=== PATIENT | female | born 1975 | race Caucasian/White ===

== ENCOUNTER 2016-07-07 20:03 | Emergency (ER) | payer BC ==
[~2016-07-07] VITALS: Ht 160 cm; Wt 77.1 kg
[~2016-07-07 20:03] MED LIST: ACET125T2 PO; ACET250T3 PO; ACHYD1T GT; ALPR0.5T PO; ANTI14DR4 OT; BSP10T PO; BUPR150T9 PO; BUTA-234 PO; CHOL4PAC17 PO; CYCL10TA9 PO; CYCL5TAB11 PO; DCS100C PO; ENXP100I SC; FLUR100T PO; FURO20TA PO; HYDR-2890 PO; HYDR-34; HYDR-3583 PO; HYDR1CAP2 PO; HYDR1TAB8 OP; HYDR25CA3 PO; HYDR25CA92 PO; IBP800T PO; LANS15CA PO; LNS30CCR PO; MECL-106 PO; METH500T35; METH500T35 PO; METO25TA PO; NEOM10DR6 LEFT EAR; NFNEB10T PO; NITR100C3 PO; ONDAN4ODT PO; POTA10TA36 PO; PRM25T PO; TRAM50TA2; TRAM50TA2 PO; WARF5TAB PO; WARF7.5T PO; WRF5T PO
[2016-07-07] MEDS ORDERED: RT-ALBUTEROL/IPRATROPIUM 3 ML (DUONEB) VIAL ONE (20:11)
[2016-07-07] MEDS ORDERED: RT-ALBUTEROL/IPRATROPIUM 3 ML (DUONEB) VIAL INH ONE (20:30)
[2016-07-07 20:33] LABS: BASOPHILS % (AUTO) 0 % (0-10); EOSINOPHILS # (AUTO) 0.2 10^3/uL (0.0-0.3); EOSINOPHILS % (AUTO) 2 % (0-10); LYMPHOCYTES # (AUTO) 4.2 X 10^3 (1.0-4.0); LYMPHOCYTES % (AUTO) 50 % (12-44); MEAN CORPUSCULAR HEMOGLOBIN 33 PG (25-34); MEAN CORPUSCULAR HGB CONC 35 G/DL (32-36); MEAN CORPUSCULAR VOLUME 93 FL (80-99); MONOCYTES # (AUTO) 0.5 X 10^3 (0.0-1.0); MONOCYTES % (AUTO) 6 % (0-12); NEUTROPHILS # (AUTO) 3.5 X 10^3 (1.8-7.8); NEUTROPHILS % (AUTO) 41 % (42-75); PLATELET COUNT 292 10^3/uL (130-400); RED BLOOD COUNT 4.56 10^6/uL (4.35-5.85); RED CELL DISTRIBUTION WIDTH 12.4 % (10.0-14.5); WHITE BLOOD COUNT 8.4 10^3/uL (4.3-11.0)
[2016-07-07 20:40] LABS: INR 1.6 (0.8-1.4); PROTHROMBIN TIME PATIENT 18.3 SEC (12.2-14.7)
--- NOTE | 2016-07-07 20:40 | ED Cough/URI ---
General Chief Complaint: Respiratory Problems Stated Complaint: SOA Nursing Triage Note: PT TO ED 8 W/ C/O SOA ONSET X7 DAYS, WORSE TODAY. INSPIRATORY ET EXPIRATORY WHEEZES AUSCULTATED. NO OTHER C/O VOICED Source: patient Exam Limitations: no limitations History of Present Illness Time seen by provider: 20:10 Initial Comments Here with complaint of shortness of air and cough that has been going on for 7 days. Worse today. States that she felt like she could not get a deep breath. Does have history of pulmonary embolism and was concerned about that. She is currently on Coumadin but she does not know her current INR level. Denies a fever but does have some chills. Does have a mildly productive cough. Does report runny nose and nasal congestion. Timing/Duration: week, getting worse Severity/Quality: mild, productive cough, sputum Prior Episodes/Possible Cause: occasional episodes Modifying Factors: Worse With Activity, Improves With Albuterol Inhaler, Improves With Rest Associated Symptoms: cough, fever/chills, nasal congestion, shortness of breath , wheezing Allergies and Home Medications Allergies Coded Allergies: Sulfa (Sulfonamide Antibiotics) (Unverified Allergy, Severe, PER PT "THROAT SWELLS", 09/11/11) bupropion (Unverified Allergy, Severe, IRREG HEART RATE, 10/21/14) amoxicillin (Unverified Allergy, Mild, RASH AND VISUAL DISTURBANCES/ VISUAL LOSS, 03/21/15) PER PT REPORT clavulanic acid (Unverified Allergy, Mild, RASH AND VISUAL DISTURBANCES/ VISUAL LOSS, 03/21/15) PER PT REPORT cefuroxime axetil (Unverified Allergy, Unknown, PER PATIENT CAN TAKE ROCEPHIN, 03/21/15) PER [facility] PATIENT RECEIVED ROCEPHIN ON 02/23 WITHOUT ISSUE tramadol (Unverified Adverse Reaction, Unknown, HEADACHE, 01/05/15) Uncoded Allergies: PENICILLIN (Allergy, Mild, RASH, 03/21/15) PER PT REPORT Home Medications Acetazolamide 125 Mg Tablet 62.5 MG PO DAILY (Reported) Cholestyramine/Aspartame 4 G/Pkt Packet 2 G PO HS (Reported) PT STATES ONLY TAKES HALF DOSE NOW (2G) AND MIXES IT WITH WATER Cyclobenzaprine Hcl 10 Mg Tablet 0.5 TAB PO HS (Reported) Hydrocodone Bit/Acetaminophen 1 Each Tablet 0.5 EACH PO Q4H PRN PRN (Reported) PT STATES TAKES 1/2 TAB Q4-6H PRN PAIN D/T INCREASED DOSE CAUSES DROWSINESS Hydroxyzine Pamoate 25 Mg Cap #20 25 MG PO PRN (Reported) Nebivolol HCl 10 Mg Tab 15 MG PO DAILY (Reported) Warfarin Sodium 5 Mg Tablet 5 MG PO DAILY (Reported) Warfarin Sodium 7.5 Mg Tablet 7.5 MG PO DAILY (Reported) 7.5 MG TWO DAYS A WEEK Constitutional: see HPI chillsNo fever EENTM: see HPINo hoarseness, No throat pain Respiratory: see HPINo hemoptysis, No stridor Cardiovascular: no symptoms reportedNo chest pain, No edema Gastrointestinal: no symptoms reportedNo nausea, No vomiting Genitourinary: no symptoms reported Musculoskeletal: no symptoms reported Skin: no symptoms reported All Other Systems Reviewed Negative Unless Noted: Yes Past Aoezrqz-Ydthap-Cnyapm Hx Patient Social History Alcohol Use: Denies Use Recreational Drug Use: No Smoking Status: Current Everyday Smoker Type Used: Cigarettes Former Smoker/When Quit: Jul 20, 2012 Recent Foreign Travel: No Contact w/Someone Who Travel: No Recent Infectious Disease Expo: No Recent Hopitalizations: No Physical Abuse Screen: No Sexual Abuse: No Immunizations Up To Date Tetanus Booster (TDap): Unknown PED Vaccines UTD: No Date of Influenza Vaccine: Jul 21, 2012 Seasonal Allergies Seasonal Allergies: No Surgeries HX Surgeries: Yes (L SHOULDERX2, DNC) Surgeries: Section, Gallbladder, Hysterectomy, Orthopedic Respiratory Hx Respiratory Disorders: Yes Respiratory Disorders: Pulmonary Embolism Cardiovascular Hx Cardiac Disorders: Yes (TACHYCARDIA, POTS SYNDROME, NORMAL STRESS TEST 2014) Cardiac Disorders: Chronic Edema/Swelling, Hypertension Neurological Hx Neurological Disorders: Yes (PSEUDOTUMOR CEREBRI DX 12/2009) Neurological Disorders: Headaches /Migraines Reproductive System Hx Reproductive Disorders: Yes (CHORIOCARCINOMA, MULTIPLE MISCARRIAGES) Sexually Transmitted Disease: No HIV/AIDS: No Female Reproductive Disorders: Endometriosis 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 07/2009) Cancer: Uterine Psychosocial Hx Psychiatric Problems: Yes Behavioral Health Disorders: Anxiety Integumentary HX Skin/Integumentary Disorder: No Blood Transfusions Hx Blood Disorders: No Reviewed Nursing Assessment Reviewed/Agree w Nursing PMH: Yes Family Medical History Significant Family History: No Pertinent Family Hx Physical Exam Vital Signs Vital Sign - Last 12Hours 07/07/16 20:03 Temp 95.8 Pulse 85 Resp 20 B/P 128/82 Pulse Ox 99 O2 Delivery Room Air Capillary Refill : Less Than 3 Seconds General Appearance: WD/WN no apparent distress HEENT: PERRL/EOMI pharyngeal erythema (mild) other (moderate bilateral nasal congestion with erythema and clear rhinorrhea.) Neck: full range of motion suppleNo lymphadenopathy (R), No lymphadenopathy (L ) Respiratory: no respiratory distress no accessory muscle use wheezing (few) Cardiovascular: regular rate, rhythm no murmur Gastrointestinal: non tender soft Extremities: non-tender normal inspection Neurologic/Psychiatric: alert oriented x 3 Skin: normal color warm/dry Progress/Results/Core Measures Results/Orders Lab Results Laboratory Tests Test 07/07/16 20:22 Range/Units Activated Partial Thromboplast Time 32 24-35 SEC Basophils # (Auto) 0.0 0.0-0.1 10^3/uL Basophils (%) (Auto) 0 0-10 % D-Dimer < 0.27 0.00-0.49 UG/ML Eosinophils # (Auto) 0.2 0.0-0.3 10^3/uL Eosinophils (%) (Auto) 2 0-10 % Hematocrit 43 35-52 % Hemoglobin 14.9 11.5-16.0 G/DL INR Comment 1.6 H 0.8-1.4 Lymphocytes # (Auto) 4.2 H 1.0-4.0 X 10^3 Lymphocytes (%) (Auto) 50 H 12-44 % Mean Corpuscular Hemoglobin 33 25-34 PG Mean Corpuscular Hemoglobin Concent 35 32-36 G/DL Mean Corpuscular Volume 93 80-99 FL Mean Platelet Volume 9.0 7.4-10.4 FL Monocytes # (Auto) 0.5 0.0-1.0 X 10^3 Monocytes (%) (Auto) 6 0-12 % Neutrophils # (Auto) 3.5 1.8-7.8 X 10^3 Neutrophils (%) (Auto) 41 L 42-75 % Platelet Count 292 130-400 10^3/uL Prothrombin Time 18.3 H 12.2-14.7 SEC Red Blood Count 4.56 4.35-5.85 10^6/uL Red Cell Distribution Width 12.4 10.0-14.5 % White Blood Count 8.4 4.3-11.0 10^3/uL My Orders Orders-RICK PEREA MD Cbc With Automated Diff (07/07/16 20:16) Fibrin Degradation Products (07/07/16 20:16) Protime With Inr (07/07/16 20:16) Partial Thromboplastin Time (07/07/16 20:16) Saline Lock/Iv-Start (07/07/16 20:16) Chest Pa/Lat (2 View) (07/07/16 20:16) Albuterol/Ipra Inhalation Soln (Duoneb I (07/07/16 20:30) Svn Sm Volume Nebulizer Rt-Rfs (07/07/16 20:16) Albuterol/Ipra Inhalation Soln (Duoneb I (07/07/16 20:11) Decadron 10 Mg Iv (07/07/16 21:50) Medications Given in ED Current Medications Medications Dose Ordered Sig/Levi Route Start Time Stop Time Status Last Admin Dose Admin Albuterol/ Ipratropium 3 ml STK-MED ONCE .ROUTE 07/07/16 20:11 07/07/16 20:19 DC 07/07/16 20:25 3 ML Vital Signs/I&O Vital Sign - Last 12Hours 07/07/16 07/07/16 20:03 20:26 Temp 95.8 Pulse 85 Resp 20 B/P 128/82 Pulse Ox 99 O2 Delivery Room Air Room Air Blood Pressure Mean: 97 Progress Note : Progress Note Seen and evaluated. IV, labs, chest x-ray and DuoNeb ordered. Monitor patient. 2144: No significant abnormal findings. INR 1.6. Improved after DuoNeb. Decadron 10 mg IV for pharyngitis. Discharged home with return precautions. Patient verbalize understanding instructions and agreement with plan. Departure Impression Impression: Primary Impression: Upper respiratory infection Qualified Code: J06.9 - Acute upper respiratory infection, unspecified Disposition: 01 HOME, SELF-CARE Condition: Improved Departure-Patient Inst. Decision time for Depature: 21:53 Referrals: KRISTOFER AMIN DO (PCP/Family) Primary Care Physician Patient Instructions: Viral Upper Respiratory Infection, Adult (DC) Add. Discharge Instructions: All discharge instructions reviewed with patient and/or family. Voiced understanding. Your INR was 1.6. Follow-up with your Dr. in one to 2 days for recheck. You may use Afrin nasal spray or the generic, 12 hour relief, 2 sprays to each nostril twice daily for 3 days only and then stop. Drink plenty of fluids. Return for worse pain, fever, vomiting, weakness, breathing problems or other concerns as needed. RICK PEREA MD Jul 07, 2016 20:40
[2016-07-07 20:41] LABS: PARTIAL THROMBOPLASTIN TIME 32 SEC (24-35)
--- NOTE | 2016-07-07 20:51 | Diagnostic Imaging Report ---
INDICATION: Difficulty breathing. EXAMINATION: Two views of the chest were obtained. COMPARISON: 03/07/2015. FINDINGS: The lungs are well aerated. No infiltrates are present. The heart is not enlarged. No evidence of pulmonary edema. No pneumothorax or pleural effusion. No hilar adenopathy. IMPRESSION: Normal PA and lateral chest with no appreciable change since previous exam. Dictated by: Dictated on workstation # [id number]
[2016-07-07] MEDS ORDERED: DEXAMETHASONE PF 10 MG/ML (DECADRON) VIAL IV STA (21:50)
[2016-07-07 22:04] VITALS: BP 122/86
== END 2016-07-07 22:04 | disposition home or self-care (01) ==
LOC: EDUNIT# 20:04 → ER 20:07
DX: J40 Bronchitis, not specified as acute or chronic (principal); I10 Essential (primary) hypertension; F17.210 Nicotine dependence, cigarettes, uncomplicated; Z79.899 Other long term (current) drug therapy; Z79.01 Long term (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; Z86.711 Personal history of pulmonary embolism
CPT/HCPCS: 36415; 71020; 85025; 85379; 85610; 85730; 94640

== ENCOUNTER 2017-02-10 13:55 | Emergency (ER) | payer BC ==
[~2017-02-10] VITALS: Ht 160 cm; Wt 77.1 kg
--- OUTSIDE RECORDS SUMMARY | 2017-02-10 14:01 | XMS REPORT ---
Author Author JIMI ROBB Organization [employer] Address Unknown Phone Unavailable Care Team Providers Care Bioinformatics Developer Name Role Phone JIMI ROBB CP Unavailable Allergies No Known Allergies Problems Problem Type Condition ICD-9 Code Onset Dates Condition Status Assessment Dysuria 788.1 Active Problem Choriocarcinoma 181 Active Problem Obesity, unspecified 278.00 Active Problem Irritable bowel syndrome 564.1 Active Problem GERD (gastroesophageal reflux disease) 530.81 Active Problem Pseudotumor cerebri 348.2 Active Problem Anxiety 300.00 Active Problem History of venous thromboembolism V12.51 Active Problem Arthropathy 716.90 Active Problem Tachycardia 785.0 Active Medications No Known Medications Results No Known Results Summary Purpose [employer] Submission
--- OUTSIDE RECORDS SUMMARY | 2017-02-10 14:01 | XMS REPORT | Clinical Summary ---
Author Author [facility] Organization [facility] Address Unknown Phone Unavailable Care Team Providers Care Manager Electrical Name Role Phone PCP Unavailable Source Comments Some departments are not documenting in the electronic medical record. If you do not see the information that you expected, contact Release of Information in the Health Information Management department at [phone] for further assistance in locating additional records.[facility] Allergies Active Allergy Reactions Severity Noted Date Comments Neomycin BLISTERS High 05/02/2015 same with colymycin Nitrofurantoin SHORTNESS OF BREATH, Medium 06/05/2015 hypertension Monohyd/M-Cryst PALPITATIONS, SEE COMMENTS Sulfa (Sulfonamide SEE COMMENTS Low 05/02/2015 throat swells hives Antibiotics) Rivaroxaban SEE COMMENTS Low 05/02/2015 swelling of the throat Current Medications Prescription Sig. Disp. Refills Start End Date Status Date cloNIDine HCl (CATAPRESS) Take 0.1 mg by mouth Active 0.1 mg tablet twice daily. nebivolol (BYSTOLIC) 10 Take 10 mg by mouth Active mg tablet daily. 5mg afternoon acetaZOLAMIDE (DIAMOX) Take 150 mg by mouth Active 250 mg tablet daily. warfarin (COUMADIN) 10 mg Take by mouth. 7.5 mg Active tablet five days, and 2 mg 2 days HYDROcodone-acetaminophen Take 1 Tab by mouth every Active (+) (LORTAB, NORCO) 6 hours as needed for 10-325 mg tablet Pain hydrOXYzine (VISTARIL) 25 Take 25 mg by mouth twice Active mg capsule daily. CYCLOBENZAPRINE HCL Take 5 mg by mouth daily. Active (FLEXERIL PO) cholestyramine/aspartame Take 1 Packet by mouth Active 4 gram packet twice daily. 1/2 Scoop x 1 daily enoxaparin (LOVENOX) 100 Inject 130 mg/kg into Active mg syrg area(s) as directed once. RINGERS SOLUTION,LACTATED Administer through vein. Active (LACTATED RINGERS IV) Rocephin 3x's weekly pregabalin (LYRICA) 75 mg Take 1 Cap by mouth twice 60 Cap 3 05/02/20 Active capsule daily. 15 CEFUROXIME AXETIL (CEFTIN Take by mouth twice Active PO) daily. Active Problems Problem Noted Date POTS (postural orthostatic tachycardia syndrome) 05/02/2015 Choriocarcinoma (HCC) 05/02/2015 DVT (deep venous thrombosis) (HCC) 05/02/2015 Pulmonary embolism (HCC) 05/02/2015 Overview: 06-05-15 First heme clinic visit. Hx as follows: 2012 had hysterectomy then developed small PE. Rxd with Lovenox and warfarin. F/U CTA showed resolution of prior PE with ? small PE in subsegmental posterior branch in the right lower lobe. Early 2014 warfarin DC'd and patient placed on Xarelto with bleeding complications. Developed POTS (postural orthostatic tachycardia syndrome) with completely negative cardiac evaluation in [place]. Developed Strep with PICC line placement, PICC subsequently removed. Pt resumed warfarin and is convinced her POTS symptoms resolved with resumption of warfarin. 10-21-14 CTA negative. Pt states she had hypercoagulable labs done in [place] after being off warfarin for 4 weeks but we have no results. This was earlier this year. I suggested review of those labs and decision about her need for anticoagulation at all. Discussed neuro review for her spells of swooning which again she believes are relieved by warfarin. Pseudotumor cerebri 05/02/2015 Interstitial cystitis 05/02/2015 Chronic fatigue 05/02/2015 Myalgia 05/02/2015 Family History Medical History Relation Name Comments Stroke Father Cancer-Breast Maternal Aunt Arthritis-rheumatoid Maternal Grandmother Cancer-Thyroid Maternal Grandmother Diabetes Maternal Grandmother High Cholesterol Maternal Grandmother Stroke Maternal Grandmother Cancer Mother Hypertension Mother Relation Name Status Comments Father Maternal Aunt Maternal Grandmother Mother Alive Social History Tobacco Use Types Packs/Day Years Used Date Current Every Day Smoker Smokeless Tobacco: Never Used Alcohol Use Drinks/Week oz/Week Comments No 0 Standard 0.0 drinks or equivalent Sex Assigned at Date Recorded Not on file Last Filed Vital Signs Vital Sign Reading Time Taken Blood Pressure 109/72 06/05/2015 9:32 AM [employer] [employer] Pulse 72 06/05/2015 9:32 AM [employer] [employer] Temperature 36.8 C (98.2 F) 06/05/2015 9:32 AM [employer] Respiratory Rate 22 06/05/2015 9:32 AM [employer] [employer] Oxygen Saturation 98% 06/05/2015 9:32 AM [employer] Inhaled Oxygen - - Concentration Weight 84.7 kg (186 lb 12.8 oz) 06/05/2015 9:32 AM [employer] [employer] Height 160 cm (5' 2.99") 06/05/2015 9:32 AM [employer] [employer] Body Mass Index 33.1 06/05/2015 9:32 AM [employer] [employer] Plan of Treatment Health Maintenance Due Date Last Done Comments PHYSICAL (COMPREHENSIVE) 1984 EXAM PERTUSSIS VACCINE 1988 TETANUS VACCINE 1994 CERVICAL CANCER SCREENING 2007 INFLUENZA VACCINE 02/21/2017 Results Not on filefrom Last 3 Months
--- OUTSIDE RECORDS SUMMARY | 2017-02-10 14:02 | XMS REPORT ---
Author Author JIMI ROBB [facility] [employer] Address Unknown Phone Unavailable Care Team Providers Care Woodworker Name Role Phone JIMI ROBB CP Unavailable Allergies, Adverse Reactions, Alerts Substance Reaction Event Type Xarelto bilat infiltrates from allergic rxn Drug Allergy Sulfamethoxazole Info Not Available Drug Allergy Neomycin Sulfate Info Not Available Drug Allergy Hydrochlorothiazide Info Not Available Drug Allergy Coly-Mycin M Info Not Available Drug Allergy Ceftin Info Not Available Drug Allergy Problems Problem Type Condition ICD-9 Code Onset Dates Condition Status Assessment Anxiety 300.00 Active Problem Choriocarcinoma 181 Active Problem Obesity, unspecified 278.00 Active Assessment Chronic pain 338.29 Active Problem Irritable bowel syndrome 564.1 Active Problem GERD (gastroesophageal reflux disease) 530.81 Active Problem Pseudotumor cerebri 348.2 Active Problem Anxiety 300.00 Active Problem History of venous thromboembolism V12.51 Active Problem Arthropathy 716.90 Active Problem Tachycardia 785.0 Active Medications Medication Code System Code Instructions Start Date End Date Status Dosage Clonidine HCl [facility] [address]-38 0.1 MG Orally Once a day 0.5 tablet Questran [facility] [address]-41 4 gram Mar 05, 2012 take 1 scoop dissolved in 2 to 6 ounces of water or noncarbonated beverage by Oral route 1 time per day Augmentin [facility] [address]-93 875-125 MG Orally every 12 hrs 1 tablet Vitamin D (Ergocalciferol) [facility] [address]-06 56439 UNIT Orally once a week 1 capsule Bystolic [facility] [address]-01 10 MG Orally Once a day 1 tablet Phenergan [facility] [address]-37 25 mg Mar 28, 2014 1 tablet by Oral route every 4 hours PRN nausea with headache Aspir-[address] [facility] [address]-86 81 MG Orally Once a day 1 tablet Cyanocobalamin [facility] [address]-73 1000 MCG/ML Injection 1 ml Flexeril NDC 0 10 mg 3 times a day take 0.5 tablet by Oral route 3 times per day PRN as needed for muscle spasm Metoprolol Tartrate [facility] [address]-54 25 MG Orally Twice a day 1 tablet Vistaril [facility] [address]-08 25 MG Orally twice a day prn 1 capsule as needed Arvada [facility] [address]-35 10-325 MG Orally 4 times a day prn Mar 14, 2015 1 tablet as needed Lovenox [facility] [address]-06 150 MG/ML Subcutaneous not defined Coumadin [facility] [address]-94 5 MG Orally On ,FRI,FRI,SAT, SUN--TAKE 7.5MG ON FRI AND FRIDAY 1 tablet Diamox Sequels [facility] [address]-42 125 mg Orally 4 times a day December 14, 2014 1 Tablet Procedures Procedure Coding System Code Date Office Visit, Est Pt., Level 4 CPT-4 62715 Mar 14, 2015 Vital Signs Date/Time: Mar 14, 2015 Temperature 98.2 F Weight 186.8 lbs Height 63 in BMI 33.09 Index Blood Pressure Diastolic 60 mmHg Blood Pressure Systolic 112 mmHg Cardiac Monitoring Heart Rate 86 bpm Results No Known Results Summary Purpose [employer] Submission
--- OUTSIDE RECORDS SUMMARY | 2017-02-10 14:02 | XMS REPORT ---
Author Author JIMI ROBB Organization [employer] Address Unknown Phone Unavailable Care Team Providers Care Public Health Assistant Name Role Phone JIMI ROBB CP Unavailable Allergies No Known Allergies Problems Problem Type Condition Code Onset Dates Condition Status Problem History of venous thromboembolism V12.51 Active Problem Chronic pain syndrome G89.4 Active Problem Choriocarcinoma C58 Active Problem Sore throat J02.9 Active Problem Gastroesophageal reflux disease without esophagitis K21.9 Active Problem Pseudotumor cerebri G93.2 Active Problem History of pulmonary embolism Z86.711 Active Problem History of DVT (deep vein thrombosis) Z86.718 Active Medications No Known Medications Results No Known Results Summary Purpose [employer] Submission
--- OUTSIDE RECORDS SUMMARY | 2017-02-10 14:03 | XMS REPORT ---
Author Author JIMI ROBB Organization [employer] Address Unknown Phone Unavailable Care Team Providers Care Job Spotter Name Role Phone JIMI ROBB CP Unavailable [...]
--- OUTSIDE RECORDS SUMMARY | 2017-02-10 14:04 | XMS REPORT ---
Author Author JIMI ROBB [facility] [employer] Address Unknown Phone Unavailable Care Team Providers Care Back Grinder Name Role Phone JIMI ROBB CP Unavailable Allergies, Adverse Reactions, Alerts Substance Reaction Event Type Xarelto bilat infiltrates from allergic rxn Drug Allergy Sulfamethoxazole Info Not Available Drug Allergy Penicillin G Benzathine Info Not Available Drug Allergy Neomycin Sulfate Info Not Available Drug Allergy Hydrochlorothiazide Info Not Available Drug Allergy Coly-Mycin M Info Not Available Drug Allergy Ceftin Info Not Available Drug Allergy Augmentin Info Not Available Drug Allergy Problems Problem Type Condition Code Onset Dates Condition Status Problem History of venous thromboembolism V12.51 Active Problem Gastroesophageal reflux disease without esophagitis K21.9 Active Problem Pseudotumor cerebri G93.2 Active Problem Cellulitis of unspecified part of limb L03.119 Active Problem Sore throat J02.9 Active 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 Active Problem History of pulmonary embolism Z86.711 Active Problem History of DVT (deep vein thrombosis) Z86.718 Active Problem Chronic pain syndrome G89.4 Active Problem Choriocarcinoma C58 Active Assessment Anxiety F41.9 Active Assessment Chronic pain syndrome G89.4 Active Assessment Cellulitis of unspecified part of limb L03.119 Active Assessment retirement 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 Z79.01 Active Medications Medication Code System Code Instructions Start Date End Date Status Dosage Swain [facility] [address]-16 7.5-325 MG Orally 4 times a day prn- must last 30 days Mar 14, 2015 1 tablet as needed Phenergan [facility] [address]-58 25 mg Mar 28, 2014 1 tablet by Oral route every 4 hours PRN nausea with headache Lovenox [facility] [address]-81 150 MG/ML Subcutaneous not defined Cyanocobalamin [facility] [address]-24 1000 MCG/ML Injection 1 ml Vistaril [facility] [address]-35 25 MG TAKE ONE CAPSULE BY MOUTH TWICE DAILY NEEDED Clindamycin HCl [facility] [address]-41 150 MG Orally 3 times a day May 11, 2015 May 21, 2015 1 capsule Questran [facility] [address]-45 4 gram Mar 05, 2012 take 1 scoop dissolved in 2 to 6 ounces of water or noncarbonated beverage by Oral route 1 time per day Diamox Sequels [facility] [address]-10 125 mg Orally 4 times a day December 14, 2014 1 Tablet Lyrica [facility] [address]-97 25 MG Orally Twice a day May 11, 2015 1 capsule Coumadin [facility] [address]-13 5 MG Orally On ,FRI,FRI,SAT, SUN--TAKE 7.5MG ON FRI AND FRIDAY 1 tablet Acidophilus Probiotic [facility] 98[address]-02550 100 MG Orally May 11, 2015 as directed Bystolic [facility] [address]-41 10 MG Orally Once a day 1 tablet Clonidine HCl [facility] [address]-20 0.1 MG Orally Once a day 0.5 tablet Cyclobenzaprine HCl [facility] [address]-07 5 MG Orally Three times a day as needed muscle spasm 1 tablet Procedures Procedure Coding System Code Date Office Visit, Est Pt., Level 5 CPT-4 06573 May 11, 2015 PROTHROMBIN TIME CPT-4 35805 May 11, 2015 Vital Signs Date/Time: May 11, 2015 Temperature 98.7 F Weight 187.3 lbs Height 63 in BMI 33.18 Index Blood Pressure Diastolic 80 mmHg Blood Pressure Systolic 120 mmHg Cardiac Monitoring Heart Rate 90 bpm Results Name Result Date Reference Range Unit Abnormality Flag INR (IN HOUSE) ----INR 1.9 [id number] 1.10 - 3.30 Summary Purpose [employer]Works Submission
--- OUTSIDE RECORDS SUMMARY | 2017-02-10 14:04 | XMS REPORT ---
Author Author JIMI ROBB [facility] eClinicalWorks Address Unknown Phone Unavailable Care Team Providers Care Passenger Service Representative Name Role Phone JIMI ROBB CP Unavailable [...] Type Condition Code Onset Dates Condition Status Assessment Gastroesophageal reflux disease without esophagitis K21.9 Active Problem History of venous thromboembolism V12.51 Active Assessment Sore throat J02.9 Active Problem Chronic pain syndrome G89.4 Active Problem Choriocarcinoma C58 Active Problem Sore throat J02.9 Active Problem Gastroesophageal reflux disease without esophagitis K21.9 Active Problem Pseudotumor cerebri G93.2 Active Problem History of pulmonary embolism Z86.711 Active Problem History of DVT (deep vein thrombosis) Z86.718 Active Assessment Tachycardia R00.0 Active Assessment History of pulmonary embolism Z86.711 Active Assessment Choriocarcinoma C58 Active Assessment Anxiety F41.9 Active Assessment Chronic pain syndrome G89.4 Active Assessment History of DVT (deep vein thrombosis) Z86.718 Active Assessment Pseudotumor cerebri G93.2 Active Medications Medication Code System Code Instructions Start Date End Date Status Dosage Clonidine HCl [facility] [address]-14 0.1 MG Orally Once a day 0.5 tablet Bystolic [facility] [address]-87 10 MG Orally Once a day 1 tablet Lovenox [facility] [address]-17 150 MG/ML Subcutaneous not defined Phenergan [facility] [address]-72 25 mg Mar 28, 2014 1 tablet by Oral route every 4 hours PRN nausea with headache Vistaril [facility] [address]-43 25 MG Orally twice a day prn 1 capsule as needed Flexeril NDC 0 10 mg 3 times a day take 0.5 tablet by Oral route 3 times per day PRN as needed for muscle spasm [place] [facility] [address]-89 10-325 MG Orally 4 times a day prn Mar 14, 2015 1 tablet as needed Coumadin [facility] [address]-74 5 MG Orally On ,FRI,FRI,SAT, SUN--TAKE 7.5MG ON FRI AND FRIDAY 1 tablet Questran [facility] [address]-50 4 gram Mar 05, 2012 take 1 scoop dissolved in 2 to 6 ounces of water or noncarbonated beverage by Oral route 1 time per day Diamox Sequels [facility] [address]-19 125 mg Orally 4 times a day December 14, 2014 1 Tablet Procedures Procedure Coding System Code Date CULTURE, BACTERIA, OTHER CPT-4 01831 Apr 05, 2015 Office Visit, Est Pt., Level 5 CPT-4 98484 Apr 05, 2015 STREP A ASSAY W/OPTIC CPT-4 54293 Apr 05, 2015 Vital Signs Date/Time: Apr 05, 2015 Temperature 98.4 F Weight 186.8 lbs Height 63 in BMI 33.09 Index Blood Pressure Diastolic 76 mmHg Blood Pressure Systolic 112 mmHg Cardiac Monitoring Heart Rate 83 bpm Results Name Result Date Reference Range Unit Abnormality Flag STREP A (IN HOUSE) Summary Purpose eClinicalWorks Submission
--- OUTSIDE RECORDS SUMMARY | 2017-02-10 14:05 | XMS REPORT ---
Author Author JIMI ROBB Organization eClinicalWorks Address Unknown Phone Unavailable Care Team Providers Care On Site Nurse Name Role Phone JIMI ROBB CP Unavailable [...]
--- OUTSIDE RECORDS SUMMARY | 2017-02-10 14:06 | XMS REPORT ---
Author Author JIMI ROBB [facility] eClinicalWorks Address Unknown Phone Unavailable Care Team Providers Care Hand Router Operator Name Role Phone JIMI ROBB CP Unavailable Allergies No Known Allergies Problems Problem Type Condition Code Onset Dates Condition Status Problem History of venous thromboembolism V12.51 Active Problem Gastroesophageal reflux disease without esophagitis K21.9 Active Problem Pseudotumor cerebri G93.2 Active Assessment terminologist 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 Z79.01 Active Problem Cellulitis of unspecified part of limb L03.119 Active Problem Sore throat J02.9 Active Problem long-term 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 Z79.01 Active Problem History of pulmonary embolism Z86.711 Active Problem History of DVT (deep vein thrombosis) Z86.718 Active Problem Chronic pain syndrome G89.4 Active Problem Choriocarcinoma C58 Active Medications No Known Medications Procedures Procedure Coding System Code Date PROTHROMBIN TIME CPT-4 95655 May 17, 2015 Results Name Result Date Reference Range Unit Abnormality Flag INR (IN HOUSE) ----Exp date [id number] ----Lot # [id number] ----INR 1.9 [id number] 1.10 - 3.30 ----PREVIOUS INR 1.9 [id number] ----CURRENT COUMADIN DOSE 7.5mg MTThFSu 10mg W S [id number] ----NEW COUMADIN DOSE 7.5mg S,M,W,TH,F 5mg Sat & Tues [id number] Summary Purpose eClinicalWorks Submission
--- OUTSIDE RECORDS SUMMARY | 2017-02-10 14:07 | XMS REPORT ---
Author Author JIMI ROBB [facility] eClinicalWorks Address Unknown Phone Unavailable Care Team Providers Care Roll Plugger Name Role Phone JIMI ROBB CP Unavailable Allergies No Known Allergies Problems Problem Type Condition ICD-9 Code Onset Dates Condition Status Problem Choriocarcinoma 181 Active Problem Obesity, unspecified [...]
--- OUTSIDE RECORDS SUMMARY | 2017-02-10 14:07 | XMS REPORT ---
Author Author JIMI ROBB Organization eClinicalWorks Address Unknown Phone Unavailable Care Team Providers Care Nursing Home Assistant Name Role Phone JIMI ROBB CP [...] DVT (deep vein thrombosis) Z86.718 Active Medications Medication Code System Code Instructions Start Date End Date Status Dosage [place] [facility] [address]-26 7.5-325 MG Orally 4 times a day prn- must last 30 days Mar 14, 2015 1 tablet as needed Cyclobenzaprine HCl [facility] [address]-54 5 MG Orally Three times a day as needed muscle spasm 1 tablet Results No Known Results Summary Purpose eClinicalWorks Submission
--- OUTSIDE RECORDS SUMMARY | 2017-02-10 14:07 | XMS REPORT ---
Author Author JIMI ROBB [facility] eClinicalWorks Address Unknown Phone Unavailable Care Team Providers Care Powertrain Control Systems Engineer Name Role Phone JIMI ROBB CP Unavailable [...] Instructions Start Date End Date Status Dosage Flexeril NDC 0 10 mg 3 times a day Jun 17, 2014 Mar 16, 2015 take 0.5 tablet by Oral route 3 times per day PRN as needed for muscle spasm Phenergan [facility] [address]-16 25 mg Mar 28, 2014 1 tablet by Oral route every 4 hours PRN nausea with headache Diamox Sequels [facility] [address]-09 125 mg Orally 4 times a day December 14, 2014 1 Tablet Bystolic [facility] [address]-51 10 MG Orally Once a day 1 tablet Coumadin [facility] [address]-30 5 MG Orally On ,FRI,FRI,SAT, SUN--TAKE 7.5MG ON FRI AND FRIDAY 1 tablet Vistaril [facility] [address]-30 25 MG Orally twice a day prn 1 capsule as needed Questran [facility] [address]-69 4 gram Mar 05, 2012 take 1 scoop dissolved in 2 to 6 ounces of water or noncarbonated beverage by Oral route 1 time per day Clonidine HCl [facility] [address]-16 0.1 MG Orally Once a day 0.5 tablet Procedures Procedure Coding System Code Date Office Visit, Est Pt., Level 4 CPT-4 16249 Feb 14, 2015 Vital Signs Date/Time: Feb 14, 2015 Temperature 97.7 F Weight 185.9 lbs Height 63 in BMI 32.93 Index Blood Pressure Diastolic 84 mmHg Blood Pressure Systolic 140 mmHg Cardiac Monitoring Heart Rate 80 bpm Results No Known Results Summary Purpose eClinicalWorks Submission
--- OUTSIDE RECORDS SUMMARY | 2017-02-10 14:08 | XMS REPORT ---
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
--- OUTSIDE RECORDS SUMMARY | 2017-02-10 14:08 | XMS REPORT ---
Author Author JIMI ROBB Organization eClinicalWorks Address Unknown Phone Unavailable Care Team Providers Care Flex O Writer Operator Name Role Phone JIMI ROBB CP [...] Instructions Start Date End Date Status Dosage Hydrocodone-Acetaminophen [facility] [address]-62 7.5-325 MG Orally every 6 hrs prn must last 30 days December 30, 2014 1 tablet as needed Results No Known Results Summary Purpose eClinicalWorks Submission
--- OUTSIDE RECORDS SUMMARY | 2017-02-10 14:08 | XMS REPORT ---
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 [address]-26 0.1 MG Orally Once a day 0.[address] [facility] [address]-21 4 gram Mar 05, 2012 take 1 scoop dissolved in 2 to 6 ounces of water or noncarbonated beverage by Oral route 1 time per day [place] [facility] [address]-73 7.5-325 MG Orally 4 times a day prn- must last 30 days Mar 14, 2015 1 tablet as needed Coumadin [facility] [address]-43 5 MG Orally On ,FRI,FRI,SAT, SUN--TAKE 7.5MG ON FRI AND THURSDAY [address] [facility] [address]-58 25 MG TAKE ONE CAPSULE BY MOUTH TWICE DAILY NEEDED Phenergan [facility] [address]-68 25 mg Mar 28, 2014 1 tablet by Oral route every 4 hours PRN nausea with headache Clindamycin HCl [facility] [address]-93 150 MG Orally 4 times a day May 15, 2015 May 18, [address] [facility] [address]-26 125 mg Orally 4 times a day December 14, [address] [facility] [address]-79 150 MG Orally 3 times a day May 11, 2015 May 21, [address] [facility] [address]225 100 MG Orally May 11, 2015 as directed Cycl[address] [facility] [address]-64 5 MG Orally Three times a day as needed muscle spasm [address] [facility] [address]-74 10 MG Orally Once a day 1 tablet Procedures Procedure Coding System Code Date Office Visit, Est Pt., Level 3 CPT-4 79050 May 15, 2015 Vital Signs Date/Time: May 15, 2015 Temperature 99.1 F Weight 186.9 lbs Height 63 in BMI 33.10 Index Blood Pressure Diastolic 80 mmHg Blood Pressure Systolic 114 mmHg Cardiac Monitoring Heart Rate 86 bpm Results No Known Results Summary Purpose eClinicalWorks Submission
--- OUTSIDE RECORDS SUMMARY | 2017-02-10 14:08 | XMS REPORT ---
Author Author JIMI ROBB Organization eClinicalWorks Address Unknown Phone Unavailable Care Team Providers Care Instructional Facilitator Name Role Phone JIMI ROBB CP Unavailable Allergies No Known Allergies Problems Problem Type Condition Code Onset Dates Condition Status Problem History of venous thromboembolism V12.51 Active Problem Gastroesophageal reflux disease without esophagitis K21.9 Active Problem Pseudotumor cerebri G93.2 Active Problem Cellulitis of unspecified part of limb L03.119 Active Problem Sore throat J02.9 Active Problem care home 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 Z79.01 Active Problem History of pulmonary embolism Z86.711 Active Problem History of DVT (deep vein thrombosis) Z86.718 Active Problem Chronic pain syndrome G89.4 Active Problem Choriocarcinoma C58 Active Medications No Known Medications Results No Known Results Summary Purpose eClinicalWorks Submission
--- OUTSIDE RECORDS SUMMARY | 2017-02-10 14:08 | XMS REPORT ---
Author Author JIMI ROBB [facility] eClinicalWorks Address Unknown Phone Unavailable Care Team Providers Care Log Snaker Name Role Phone JIMI ROBB CP Unavailable Allergies No Known Allergies Problems Problem Type Condition ICD-9 Code Onset Dates Condition Status Assessment senior living 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 therapy V58.61 Active Problem Choriocarcinoma 181 Active Problem Obesity, unspecified 278.00 Active Assessment Dysuria 788.1 Active Problem Irritable bowel syndrome 564.1 Active Problem GERD (gastroesophageal reflux disease) 530.81 Active Problem Pseudotumor cerebri 348.2 Active Problem Anxiety 300.00 Active Problem History of venous thromboembolism V12.51 Active Problem Arthropathy 716.90 Active Problem Tachycardia 785.0 Active Medications No Known Medications Procedures Procedure Coding System Code Date URINALYSIS, AUTO, W/O SCOPE CPT-4 28203 Feb 20, 2015 PROTHROMBIN TIME CPT-4 44577 Feb 20, 2015 Results No Known Results Summary Purpose [employer] Submission
--- NOTE | 2017-02-10 14:23 | ED Abdominal Pain ---
General Chief Complaint: Abdominal/GI Problems Stated Complaint: ABD PAIN Source of Information: Patient Exam Limitations: No Limitations History of Present Illness Time Seen By Provider: 14:21 Initial Comments To ER with reports of right flank pain. The pain has been waxing and waning but always present for the past 2-3 days. It is worsened by movement and deep breathing. She has mild nausea without vomiting. No fevers. She does report urinary frequency. No dyspnea. Pain is worse with movement. She is on warfarin for history of DVT. She denies dyspnea Timing/Duration: 2-3 Days, Getting Worse, Intermittent Severity/Quality: Aching Location: Flank Radiation: No Radiation Activities at Onset: None Associated Symptoms: Nausea/Vomiting Allergies and Home Medications Allergies Coded Allergies: Sulfa (Sulfonamide Antibiotics) (Unverified Allergy, Severe, PER PT "THROAT SWELLS", 09/11/11) bupropion (Unverified Allergy, Severe, IRREG HEART RATE, 10/21/14) amoxicillin (Unverified Allergy, Mild, RASH AND VISUAL DISTURBANCES/ VISUAL LOSS, 03/21/15) PER PT REPORT clavulanic acid (Unverified Allergy, Mild, RASH AND VISUAL DISTURBANCES/ VISUAL LOSS, 03/21/15) PER PT REPORT cefuroxime axetil (Unverified Allergy, Unknown, PER PATIENT CAN TAKE ROCEPHIN, 03/21/15) PER [facility] PATIENT RECEIVED ROCEPHIN ON 02/23 WITHOUT ISSUE tramadol (Unverified Adverse Reaction, Unknown, HEADACHE, 01/05/15) Uncoded Allergies: PENICILLIN (Allergy, Mild, RASH, 03/21/15) PER PT REPORT Home Medications Acetazolamide 125 Mg Tablet, 62.5 MG PO DAILY, (Reported) Capsaicin 1 Each Adh..patch, 1 EACH TP BID PRN for PAIN-MODERATE, #10 Prescribed by: AMPARO WHITE on 02/10/17 3565 Cholestyramine/Aspartame 4 G/Pkt Packet, 2 G PO HS, (Reported) PT STATES ONLY TAKES HALF DOSE NOW (2G) AND MIXES IT WITH WATER Cyclobenzaprine Hcl 10 Mg Tablet, 0.5 TAB PO HS, (Reported) Hydrocodone Bit/Acetaminophen 1 Each Tablet, 0.5 EACH PO Q4H PRN, (Reported) PT STATES TAKES 1/2 TAB Q4-6H PRN PAIN D/T INCREASED DOSE CAUSES DROWSINESS Hydroxyzine Pamoate 25 Mg Cap, 25 MG PO PRN, #20 (Reported) Nebivolol HCl 10 Mg Tab, 15 MG PO DAILY, (Reported) Warfarin Sodium 5 Mg Tablet, 5 MG PO DAILY, (Reported) Warfarin Sodium 7.5 Mg Tablet, 7.5 MG PO DAILY, (Reported) 7.5 MG TWO DAYS A WEEK Review of Systems Constitutional: see HPI, No chills, No fever EENTM: No Symptoms Reported Respiratory: No Symptoms Reported Cardiovascular: No Symptoms Reported Gastrointestinal: See HPI, Denies Abdominal Pain, Denies Constipated, Denies Diarrhea, Nausea, Denies Vomiting Genitourinary: See HPI, Flank Pain Musculoskeletal: no symptoms reported Skin: no symptoms reported Psychiatric/Neurological: No Symptoms Reported Endocrine: No Symptoms Reported Hematologic/Lymphatic: No Symptoms Reported Past Yifuino-Jukzim-Knngxr Hx Patient Social History Type Used: Cigarettes Recent Foreign Travel: No Contact w/Someone Who Travel: No Recent Hopitalizations: No Immunizations Up To Date Tetanus Booster (TDap): Unknown PED Vaccines UTD: No Date of Influenza Vaccine: Jul 21, 2012 Seasonal Allergies Seasonal Allergies: No Surgeries Surgeries: Section, Gallbladder, Hysterectomy, Orthopedic Respiratory Respiratory Disorders: Pulmonary Embolism Cardiovascular Cardiac Disorders: Chronic Edema/Swelling, Hypertension Neurological Neurological Disorders: Headaches /Migraines Reproductive System Hx Reproductive Disorders: Yes (CHORIOCARCINOMA, MULTIPLE MISCARRIAGES) Sexually Transmitted Disease: No HIV/AIDS: No Female Reproductive Disorders: Endometriosis [employer] ENG[employer]ER History: Hysterectomy Gastrointestinal Gastrointestinal Disorders: Gall Bladder Disease, Irritable Bowel Musculoskeletal Musculoskeletal Disorders: Arthritis, Chronic Back Pain HEENT Loss of Vision: Denies Hearing Impairment: Denies Cancer Cancer: Uterine Psychosocial Behavioral Health Disorders: Anxiety Family Medical History Significant Family History: No Pertinent Family Hx Physical Exam Vital Signs VS - Last 72 Hours, by Label 02/10/17 14:01 Temp 98.9 Pulse 76 Resp 20 B/P (MAP) 132/81 Pulse Ox 99 O2 Delivery Room Air Capillary Refill : General Appearance: WD/WN, no apparent distress HEENT: PERRL/EOMI, normal ENT inspection Neck: non-tender, full range of motion Respiratory: normal breath sounds, no respiratory distress, no accessory muscle use Cardiovascular: regular rate, rhythm, no murmur Gastrointestinal: normal bowel sounds, non tender, soft Extremities: normal range of motion, non-tender Back: CVA tenderness (R), No CVA tenderness (L) Neurologic/Psychiatric: alert, normal mood/affect, oriented x 3 Skin: normal color, warm/dry Progress/Results/Core Measures Results/Orders Lab Results Laboratory Tests Test 02/10/17 14:05 02/10/17 14:16 02/10/17 15:00 Range/Units Urine Color YELLOW Urine Clarity CLEAR Urine pH 7 5-9 Urine Specific Carmen 1.010 L 1.016-1.022 Urine Protein NEGATIVE NEGATIVE Urine Glucose (UA) NEGATIVE NEGATIVE Urine Ketones NEGATIVE NEGATIVE Urine Nitrite NEGATIVE NEGATIVE Urine Bilirubin NEGATIVE NEGATIVE Urine Urobilinogen NORMAL NORMAL MG/DL Urine Leukocyte Esterase NEGATIVE NEGATIVE Urine RBC (Auto) NEGATIVE NEGATIVE Urine RBC NONE /HPF Urine WBC NONE /HPF Urine Squamous Epithelial Cells 2-5 /HPF Urine Crystals NONE /LPF Urine Bacteria NEGATIVE /HPF Urine Casts NONE /LPF Urine Mucus NEGATIVE /LPF Urine Culture Indicated NO White Blood Count 9.3 4.3-11.0 10^3/uL Red Blood Count 4.28 L 4.35-5.85 10^6/uL Hemoglobin 14.1 11.5-16.0 G/DL Hematocrit 41 35-52 % Mean Corpuscular Volume 95 80-99 FL Mean Corpuscular Hemoglobin 33 25-34 PG Mean Corpuscular Hemoglobin Concent 35 32-36 G/DL Red Cell Distribution Width 12.2 10.0-14.5 % Platelet Count 292 130-400 10^3/uL Mean Platelet Volume 9.0 7.4-10.4 FL Neutrophils (%) (Auto) 49 42-75 % Lymphocytes (%) (Auto) 43 12-44 % Monocytes (%) (Auto) 6 0-12 % Eosinophils (%) (Auto) 2 0-10 % Basophils (%) (Auto) 0 0-10 % Neutrophils # (Auto) 4.5 1.8-7.8 X 10^3 Lymphocytes # (Auto) 4.0 1.0-4.0 X 10^3 Monocytes # (Auto) 0.5 0.0-1.0 X 10^3 Eosinophils # (Auto) 0.2 0.0-0.3 10^3/uL Basophils # (Auto) 0.0 0.0-0.1 10^3/uL Sodium Level 139 135-145 MMOL/L Potassium Level 3.9 3.6-5.0 MMOL/L Chloride Level 106 98-107 MMOL/L Carbon Dioxide Level 25 21-32 MMOL/L Anion Gap 8 5-14 MMOL/L Blood Urea Nitrogen 11 7-18 MG/DL Creatinine 0.71 0.60-1.30 MG/DL Estimat Glomerular Filtration Rate > 60 BUN/Creatinine Ratio 15 Glucose Level 91 70-105 MG/DL Calcium Level 8.6 8.5-10.1 MG/DL Total Bilirubin 0.2 0.1-1.0 MG/DL Aspartate Amino Transf (AST/SGOT) 25 5-34 U/L Alanine Aminotransferase (ALT/SGPT) 23 0-55 U/L Alkaline Phosphatase 47 40-136 U/L Total Protein 6.4 6.4-8.2 GM/DL Albumin 4.0 3.2-4.5 GM/DL My Orders Orders - AMPARO WHITE APRN Cbc With Automated Diff (02/10/17 14:19) Comprehensive Metabolic Panel (02/10/17 14:19) Ua Culture If Indicated (02/10/17 14:19) Urine Bedside (02/10/17 14:19) Chest Pa/Lat (2 View) (02/10/17 14:19) Saline Lock/Iv-Start (02/10/17 14:19) Ns Iv 1000 Ml (Sodium Chloride 0.9%) (02/10/17 14:30) Ondansetron Injection (Zofran Injectio (02/10/17 14:30) Ketorolac Injection (Toradol Injection) (02/10/17 14:30) Protime With Inr (02/10/17 14:20) Ct Abd/Pelvis Wo(Kidney Stone) (02/10/17 14:41) Medications Given in ED Current Medications Medications Dose Ordered Sig/Levi Route Start Time Stop Time Status Last Admin Dose Admin Ketorolac Tromethamine 30 mg ONCE ONCE IVP 02/10/17 14:30 02/10/17 14:31 DC 02/10/17 14:34 30 MG Ondansetron HCl 4 mg ONCE ONCE IVP 02/10/17 14:30 02/10/17 14:31 DC 02/10/17 14:35 4 MG Vital Signs/I&O Vital Sign - Last 12Hours 02/10/17 14:01 Temp 98.9 Pulse 76 Resp 20 B/P (MAP) 132/81 Pulse Ox 99 O2 Delivery Room Air Diagnostic Imaging Diagonstic Imaging: CT (She is) Comments NAME: LAURA MOJICA [facility] REC#: [id number] PT STATUS: REG ER : 1975 PHYSICIAN: AMPARO WHITE APRN ADMIT DATE: 02/10/17/ER Draft Date of Exam:02/10/17 CT ABD/PELVIS WO(KIDNEY STONE) PROCEDURE: CT urinary tract, rule out kidney stone. TECHNIQUE: Multiple contiguous axial images were obtained through the abdomen and pelvis without the use of intravenous contrast. INDICATION: Right-sided abdominal pain. COMPARISON: None. FINDINGS: Lung bases are clear. Cholecystectomy. The liver, pancreas, spleen, adrenal glands, kidneys and collecting systems are negative. Hysterectomy. Negative appendix. No free intraperitoneal air or fluid. No lymphadenopathy. No evidence of bowel obstruction. There is a large amount of stool throughout the colon which may represent a degree of constipation. No acute osseous findings. IMPRESSION: 1. No acute CT findings in the abdomen or pelvis. 2. Large amount of stool throughout the colon may represent a degree of constipation. Dictated on workstation # [id number] Dict: 02/10/17 1526 Trans: 02/10/17 1533 [facility] [id number] Interpreted by: JUANITA OLGUIN MD Electronically signed by: NAME: LAURA MOJICA [facility] REC#: [id number] PT STATUS: REG ER : 1975 PHYSICIAN: AMPARO WHITE APRN ADMIT DATE: 02/10/17/ER Signed Date of Exam:02/10/17 CHEST PA/LAT (2 VIEW) INDICATION: Nausea and back pain. TECHNIQUE: PA and lateral views of the chest were obtained. COMPARISON: 07/07/2016. FINDINGS: The heart size and pulmonary vascularity are within normal limits. The lungs are clear bilaterally. IMPRESSION: Unremarkable chest. Dictated by: Dictated on workstation # [id number] Dict: 02/10/17 1454 Trans: 02/10/17 1500 [phone] Interpreted by: ULBNA CHAND MD Electronically signed by: LUBNA CHAND MD 02/10/17 1500 Departure Communication Progress Notes 1522-pt reports pain is better at this time after toradol. I am unable to find a cause for her pain. This may simply be musculoskeletal. Impression Impression: Primary Impression: Right flank pain Disposition: HOME, SELF-CARE Condition: Stable Departure-Patient Inst. Decision time for Depature: 15:24 Referrals: KRISTOFER AMIN DO (PCP/Family) Primary Care Physician Patient Instructions: No Instuctions Given Add. Discharge Instructions: 1. Continue current pain medication regimen 2. Return to ER for any concerns 3. Follow-up All discharge instructions reviewed with patient and/or family. Voiced understanding. Scripts Capsaicin (Capsaicin Hot Patch) 1 Each Adh..patch 1 EACH TP BID Y for PAIN-MODERATE, #10 PATCH Prov: AMPARO WHITE APRN 02/10/17 Images Torso/Trunk 1 - Tenderness Copy Copies To 1: KRISTOFER AMIN PETER J APRN Feb 10, 2017 14:23
[2017-02-10 14:29] LABS: BILIRUBIN,URINE NEGATIVE (NEGATIVE); KETONES,URINE NEGATIVE (NEGATIVE); LEUKOCYTE ESTERASE ,URINE NEGATIVE (NEGATIVE); NITRITE,URINE NEGATIVE (NEGATIVE); PH,URINE 7 (5-9); PROTEIN,URINE NEGATIVE (NEGATIVE); UROBILINOGEN,URINE NORMAL (NORMAL)
[2017-02-10 14:30] LABS: BASOPHILS % (AUTO) 0 % (0-10); EOSINOPHILS # (AUTO) 0.2 10^3/uL (0.0-0.3); EOSINOPHILS % (AUTO) 2 % (0-10); LYMPHOCYTES % (AUTO) 43 % (12-44); MEAN CORPUSCULAR HEMOGLOBIN 33 PG (25-34); MEAN CORPUSCULAR HGB CONC 35 G/DL (32-36); MEAN CORPUSCULAR VOLUME 95 FL (80-99); MONOCYTES # (AUTO) 0.5 X 10^3 (0.0-1.0); MONOCYTES % (AUTO) 6 % (0-12); NEUTROPHILS # (AUTO) 4.5 X 10^3 (1.8-7.8); NEUTROPHILS % (AUTO) 49 % (42-75); PLATELET COUNT 292 10^3/uL (130-400); RED BLOOD COUNT 4.28 10^6/uL (4.35-5.85); RED CELL DISTRIBUTION WIDTH 12.2 % (10.0-14.5); WHITE BLOOD COUNT 9.3 10^3/uL (4.3-11.0)
[2017-02-10] MEDS ORDERED: NS IV 1000 ML 1,000 ML IV SCH (14:30)
[2017-02-10] MEDS ORDERED: ONDANSETRON 4 MG/2 ML (SDV) Z0FRAN IVP ONE (14:30)
[2017-02-10] MEDS ORDERED: KETOROLAC 30 MG/ML VIAL IVP ONE (14:30)
[2017-02-10 14:46] LABS: ALANINE AMINOTRANSFERASE 23 U/L (0-55); ANION GAP 8 MMOL/L (5-14); ASPARTATE AMINO TRANSFERASE 25 U/L (5-34); BILIRUBIN,TOTAL 0.2 MG/DL (0.1-1.0); BLOOD UREA NITROGEN 11 MG/DL (7-18); BUN/CREATININE RATIO 15; CALCIUM 8.6 MG/DL (8.5-10.1); CARBON DIOXIDE 25 MMOL/L (21-32); CHLORIDE 106 MMOL/L (98-107); CREATININE SERUM 0.71 MG/DL (0.60-1.30); GFR ESTIMATED > 60; GLUCOSE 91 MG/DL (70-105); POTASSIUM 3.9 MMOL/L (3.6-5.0); SODIUM 139 MMOL/L (135-145); TOTAL PROTEIN 6.4 GM/DL (6.4-8.2)
--- NOTE | 2017-02-10 14:58 | Diagnostic Imaging Report ---
INDICATION: Nausea and back pain. TECHNIQUE: PA and lateral views of the chest were obtained. COMPARISON: 07/07/2016. FINDINGS: The heart size and pulmonary vascularity are within normal limits. The lungs are clear bilaterally. IMPRESSION: Unremarkable chest. Dictated by: Dictated on workstation # [id number]
[2017-02-10] MEDS ORDERED: CAPS1ADH TP (15:25)
--- NOTE | 2017-02-10 15:34 | Diagnostic Imaging Report ---
PROCEDURE: CT urinary tract, rule out kidney stone. TECHNIQUE: Multiple contiguous axial images were obtained through the abdomen and pelvis without the use of intravenous contrast. INDICATION: Right-sided abdominal pain. COMPARISON: None. FINDINGS: Lung bases are clear. Cholecystectomy. The liver, pancreas, spleen, adrenal glands, kidneys and collecting systems are negative. Hysterectomy. Negative appendix. No free intraperitoneal air or fluid. No lymphadenopathy. No evidence of bowel obstruction. There is a large amount of stool throughout the colon which may represent a degree of constipation. No acute osseous findings. IMPRESSION: 1. No acute CT findings in the abdomen or pelvis. 2. Large amount of stool throughout the colon may represent a degree of constipation. Dictated by: Dictated on workstation # [id number]
[2017-02-10 15:48] LABS: INR 1.5 (0.8-1.4); PROTHROMBIN TIME PATIENT 18.3 SEC (12.2-14.7)
[2017-02-10 16:34] VITALS: BP 116/67
== END 2017-02-10 16:34 | disposition home or self-care (01) ==
LOC: EDUNIT# 13:55 → ER 13:57
DX: R10.9 Unspecified abdominal pain (principal); I10 Essential (primary) hypertension; G43.909 Migraine, unspecified, not intractable, without status migrainosus; F41.9 Anxiety disorder, unspecified; Z85.42 Personal history of malignant neoplasm of other parts of uterus; Z87.19 Personal history of other diseases of the digestive system; Z86.718 Personal history of other venous thrombosis and embolism; Z79.01 Long term (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; Z87.59 Personal history of other complications of pregnancy, childbirth and the puerperium; Z90.710 Acquired absence of both cervix and uterus
CPT/HCPCS: 36415; 71020; 74176; 80053; 81000; 85025; 85379; 85610; 96361; 96374; 96375

== ENCOUNTER → 2017-03-03 | Outpatient (CLI) | payer BC ==
[~2017-03-03] MED LIST changes: +CAPS1ADH TP
--- NOTE | 2017-03-03 15:31 | Diagnostic Imaging Report ---
PROCEDURE: CT urinary tract, rule out kidney stone. TECHNIQUE: Multiple contiguous axial images were obtained through the abdomen and pelvis without the use of intravenous contrast. INDICATION: Right flank pain. COMPARISON: 02/10/17. FINDINGS: The lung bases demonstrate focal area of subpleural nodularity in the posterior aspect of the right lung base similar to 02/10/2017. This is also unchanged from December 2014 and is consistent with a focal scar. The liver, the spleen, the pancreas, and the adrenal glands appear unremarkable for an unenhanced exam. Cholecystectomy clips are seen. The kidneys demonstrate no stones and no hydronephrosis. Calcifications in the pelvis appear to relate to phleboliths with no ureteric or bladder stone seen either. The abdominal aorta is normal in caliber. No para-aortic significantly enlarged lymph node is seen. The appendix is normal. There is suggestion of hysterectomy and surgical sutures in the adnexa bilaterally. No significant free fluid or fluid collection in the abdomen or pelvis is seen. The osseous structures demonstrate a transitional lumbosacral junction with pseudoarthrosis between the sacralized right transverse process of L5 and the right sacral ala. IMPRESSION: No urinary tract stones. No hydronephrosis. Dictated by: Dictated on workstation # [id number]
== END ==
LOC: RAD 12:52
PROVIDERS: ATTEND Family Medicine
DX: R10.31 Right lower quadrant pain (principal); G93.2 Benign intracranial hypertension
CPT/HCPCS: 74176

== ENCOUNTER → 2017-03-11 | Outpatient (CLI) | payer BC | LOC: RAD 17:40 | PROVIDERS: ATTEND Family Medicine | DX: R59.0 Localized enlarged lymph nodes (principal); M54.2 Cervicalgia; E23.7 Disorder of pituitary gland, unspecified ==

== ENCOUNTER → 2017-07-22 | Outpatient (CLI) | payer BC ==
--- NOTE | 2017-07-22 14:26 | Diagnostic Imaging Report ---
CLINICAL INDICATION: Patient with unchanged lump on right lateral neck for years. EXAM: Limited ultrasound evaluation of the soft tissue of concern in the right lateral aspect of the neck. COMPARISON: Ultrasound of the soft tissue of the head and neck dated 10/05/2015. FINDINGS AND IMPRESSION: 1: There is no significant change in size and appearance of the 12 mm x 3 mm x 9 mm, benign-appearing lymph node with fatty hilum involving the lateral aspect of the right side of the neck. 2: There is no other significant abnormality seen in the region. Dictated by: Dictated on workstation # [id number]
--- NOTE | 2017-07-22 15:03 | Diagnostic Imaging Report ---
INDICATION: Cough and dyspnea. TIME OF EXAM: 02:38 p.m. Correlation is made with prior study of 02/10/2017. FINDINGS: The heart size is normal. The lungs are clear. No pleural effusion or pneumothorax is identified. The pulmonary vascularity is normal. IMPRESSION: No acute abnormality detected. Dictated by: Dictated on workstation # [id number]
== END ==
LOC: RAD 13:48
PROVIDERS: ATTEND Family Medicine
DX: R05 Cough (principal); R59.0 Localized enlarged lymph nodes
CPT/HCPCS: 71046; 76536

== ENCOUNTER → 2017-10-06 | Outpatient (CLI) | payer BC ==
--- NOTE | 2017-10-06 17:23 | Diagnostic Imaging Report ---
INDICATION: Right shoulder pain. FINDINGS: Four views of the right shoulder show no fracture, dislocation, or other acute abnormalities. IMPRESSION: Negative right shoulder. Dictated by: Dictated on workstation # [id number]
== END ==
LOC: RAD 17:02
PROVIDERS: ATTEND Nurse Practitioner Family
DX: M25.511 Pain in right shoulder (principal)
CPT/HCPCS: 73030

== ENCOUNTER → 2018-04-07 | Outpatient (CLI) | payer BC | LOC: CARD 14:03 | PROVIDERS: ATTEND Internal Medicine Cardiovascular Disease | DX: R00.2 Palpitations (principal); R06.02 Shortness of breath; R42 Dizziness and giddiness; I26.99 Other pulmonary embolism without acute cor pulmonale; I34.0 Nonrheumatic mitral (valve) insufficiency | CPT/HCPCS: 93306 ==

== ENCOUNTER 2018-05-10 11:29 | Emergency (ER) | payer BC ==
[~2018-05-10] VITALS: Ht 160 cm; Wt 77.1 kg
--- OUTSIDE RECORDS SUMMARY | 2018-05-10 11:35 | XMS REPORT | Clinical Summary ---
Author Author [facility] Organization [facility] Address Unknown Phone Unavailable Care Team Providers Care Property Management Coordinator Name Role Phone Eboni Maldonado MD PCP Ariana Goode RN Unavailable Unavailable Khang Valdivia MD Unavailable Unavailable Felix Collier MD 3 Source Comments Some departments are not documenting in the electronic medical record. If you do not see the information that you expected, contact Release of Information in the Health Information Management department at [phone] for further assistance in locating additional records.[facility] Allergies Active Allergy Reactions Severity Noted Date Comments Nitrofurantoin SHORTNESS OF BREATH, Medium 06/05/2015 hypertension Monohyd/M-Cryst PALPITATIONS, SEE COMMENTS Neomycin BLISTERS High 05/02/2015 same with colymycin Sulfa (Sulfonamide SEE COMMENTS Low 05/02/2015 throat [...] POTS (postural orthostatic tachycardia syndrome) 05/02/2015 Choriocarcinoma 05/02/2015 DVT (deep venous thrombosis) (HCC) 05/02/2015 [...] syndrome) with completely negative cardiac evaluation in [place], [place] Developed Strep with PICC line placement, PICC subsequently removed. Pt resumed warfarin and is convinced her POTS symptoms resolved with resumption of warfarin. 10-21-14 CTA negative. Pt states she had hypercoagulable labs done in [place] after being off warfarin for 4 weeks [...] Taken Blood Pressure 109/72 06/05/2015 9:32 AM [facility] Pulse 72 06/05/2015 9:32 AM [facility] Temperature 36.8 C (98.2 F) 06/05/2015 9:32 AM [facility] Respiratory Rate 22 06/05/2015 9:32 AM [facility] Oxygen Saturation 98% 06/05/2015 9:32 AM [facility] Inhaled Oxygen - - Concentration Weight 84.7 kg (186 lb 12.8 oz) 06/05/2015 9:32 AM [facility] Height 160 cm (5' 2.99") 06/05/2015 9:32 AM [facility] Body Mass Index 33.1 06/05/2015 9:32 AM [facility] Plan of Treatment Health Maintenance Due Date Last Done Comments PHYSICAL (COMPREHENSIVE) 1984 EXAM HIV SCREENING 1992 DTAP/TDAP VACCINES (1 - 1995 Tdap) CERVICAL CANCER SCREENING 2007 BREAST CANCER SCREENING 2017 INFLUENZA VACCINE 01/21/2018 Results Not on filefrom Last 3 Months
--- OUTSIDE RECORDS SUMMARY | 2018-05-10 11:48 | XMS REPORT | Continuity of Care Document ---
Author Author [facility] Address Unknown Phone Unavailable Allergies Active Description Code Type Severity Reaction Onset Reported/Identified Relationship to Patient Clinical Status Yes Ceftin Drug Allergy N/A N/A 07/26/2008 Yes Ceftin Drug Allergy 07/26/2008 Yes Coly Mycin M Drug Allergy 07/26/2008 Yes Ultram Drug Allergy 07/26/2008 Yes hydrochlorothiazide Drug Allergy N/A N/A 02/03/2009 Yes sulfADIAZINE Drug Allergy N/ A N/A 02/03/2009 Yes hydrochlorothiazide Drug Allergy 02/03/2009 Yes sulfADIAZINE Drug Allergy 02/03/2009 Yes Sulfa (Sulfonamide Antibiotics) [id number] Drug Allergy Severe PER PT "THROAT 09/11/2011 Yes cefuroxime axetil [id number] Drug Allergy Unknown N/A 07/20/2012 Yes bupropion [id number] Drug Allergy Severe IRREG HEART RAT 10/21/2014 Yes latanoprost [id number] Drug Allergy Severe SOA, ITCHING 10/21/2014 Yes tramadol [id number] Drug Allergy Unknown HEADACHE 01/05/2015 Yes amoxicillin [id number] Drug Allergy Mild RASH AND VISUAL 03/21/2015 Yes clavulanic acid [id number] Drug Allergy Mild RASH AND VISUAL 03/21/2015 Yes PENICILLIN PENICILLIN Mild RASH 03/21/2015 Yes cefuroxime axetil [id number] Drug Allergy Unknown PER PATIENT CAN 2014 Medications There is no data. Problems Date Dx Coded Attending Type Code Diagnosis Diagnosed By 01/06/2008 380.10 OTITIS EXTERNA - RIGHT EAR 01/06/2008 DANAE RIVERA MD 380.10 OTITIS EXTERNA - RIGHT EAR 01/06/2008 JAMIE DERAS MD 380.10 OTITIS EXTERNA - RIGHT EAR 01/06/2008 CELESTE MARINO MD 380.10 OTITIS EXTERNA - RIGHT EAR 01/06/2008 380.10 OTITIS EXTERNA - RIGHT EAR 01/06/2008 JAMIE DERAS MD 380.10 OTITIS EXTERNA - RIGHT EAR 01/06/2008 JAMIE DERAS MD 380.10 OTITIS EXTERNA - RIGHT EAR 01/06/2008 JAMIE DERAS MD 380.10 OTITIS EXTERNA - RIGHT EAR 01/06/2008 JAMIE DREAS MD 380.10 OTITIS EXTERNA - RIGHT EAR 01/06/2008 380.10 OTITIS EXTERNA - RIGHT EAR 01/06/2008 380.10 OTITIS EXTERNA - RIGHT EAR 01/06/2008 380.10 OTITIS EXTERNA - RIGHT EAR 01/06/2008 380.10 OTITIS EXTERNA - RIGHT EAR 01/06/2008 380.10 OTITIS EXTERNA - RIGHT EAR 01/06/2008 380.10 OTITIS EXTERNA - RIGHT EAR 01/06/2008 380.10 OTITIS EXTERNA - RIGHT EAR 01/06/2008 380.10 OTITIS EXTERNA - RIGHT EAR 01/06/2008 380.10 OTITIS EXTERNA - RIGHT EAR 01/06/2008 380.10 OTITIS EXTERNA - RIGHT EAR 01/06/2008 380.10 OTITIS EXTERNA - RIGHT EAR 01/06/2008 380.10 OTITIS EXTERNA - RIGHT EAR 01/06/2008 JAMIE DERAS MD 380.10 OTITIS EXTERNA - RIGHT EAR 01/06/2008 JAMIE DERAS MD 380.10 OTITIS EXTERNA - RIGHT EAR 01/06/2008 JAMIE DERAS MD 380.10 OTITIS EXTERNA - RIGHT EAR 01/06/2008 PAT ZAMAN APRN R 380.10 OTITIS EXTERNA - RIGHT EAR 01/06/2008 JAMIE DERAS MD 380.10 OTITIS EXTERNA - RIGHT EAR 01/06/2008 JAMIE DERAS MD 380.10 OTITIS EXTERNA - RIGHT EAR 01/06/2008 DAYANA CHAPMAN DO K 380.10 OTITIS EXTERNA - RIGHT EAR 01/06/2008 LEN ROBB APRNA L 380.10 OTITIS EXTERNA - RIGHT EAR 01/06/2008 CEZAR BRAVONLENA L 380.10 OTITIS EXTERNA - RIGHT EAR 01/06/2008 CEZAR BRAVON, JIMI L 380.10 OTITIS EXTERNA - RIGHT EAR 01/06/2008 CEZAR BRAVON JIMI L 380.10 OTITIS EXTERNA - RIGHT EAR 01/06/2008 MADL MANUFACTURING PROCESS TECHNICIAN, JIMI L 380.10 OTITIS EXTERNA - RIGHT EAR 01/06/2008 MADL MANUFACTURING PROCESS TECHNICIAN, JIMI L 380.10 OTITIS EXTERNA - RIGHT EAR 01/06/2008 MADL MANUFACTURING PROCESS TECHNICIAN, JIMI L 380.10 OTITIS EXTERNA - RIGHT EAR 01/06/2008 CHAPMAN DO, DAYANA K 380.10 OTITIS EXTERNA - RIGHT EAR 01/06/2008 CHAPMAN DO, DAYANA K 380.10 OTITIS EXTERNA - RIGHT EAR 01/06/2008 CHAPMAN DO, DAYANA K 380.10 OTITIS EXTERNA - RIGHT EAR 01/06/2008 MADL MANUFACTURING PROCESS TECHNICIAN, JIMI L 380.10 OTITIS EXTERNA - RIGHT EAR 01/06/2008 CHAPMAN DO, DAYANA K 380.10 OTITIS EXTERNA - RIGHT EAR 01/06/2008 CHAPMAN DO, DAYANA K 380.10 OTITIS EXTERNA - RIGHT EAR 01/06/2008 MADL MANUFACTURING PROCESS TECHNICIAN, JIMI L 380.10 OTITIS EXTERNA - RIGHT EAR 01/06/2008 MADL MANUFACTURING PROCESS TECHNICIAN, JIMI L 380.10 OTITIS EXTERNA - RIGHT EAR 01/06/2008 MADL MANUFACTURING PROCESS TECHNICIAN, JIMI L 380.10 OTITIS EXTERNA - RIGHT EAR 01/06/2008 MADL MANUFACTURING PROCESS TECHNICIAN, JIMI L 380.10 OTITIS EXTERNA - RIGHT EAR 01/06/2008 MADL MANUFACTURING PROCESS TECHNICIAN, JIMI L 380.10 OTITIS EXTERNA - RIGHT EAR 01/06/2008 MADL MANUFACTURING PROCESS TECHNICIAN, JIMI L 380.10 OTITIS EXTERNA - RIGHT EAR 01/06/2008 MADL MANUFACTURING PROCESS TECHNICIAN, JIMI L 380.10 OTITIS EXTERNA - RIGHT EAR 01/06/2008 MADL MANUFACTURING PROCESS TECHNICIAN, JIMI L 380.10 OTITIS EXTERNA - RIGHT EAR 01/06/2008 MADL MANUFACTURING PROCESS TECHNICIAN, JIMI L 380.10 OTITIS EXTERNA - RIGHT EAR 01/06/2008 MADL MANUFACTURING PROCESS TECHNICIAN, JIMI L 380.10 OTITIS EXTERNA - RIGHT EAR 01/06/2008 MADL MANUFACTURING PROCESS TECHNICIAN, JIMI L 380.10 OTITIS EXTERNA - RIGHT EAR 01/06/2008 MADL MANUFACTURING PROCESS TECHNICIAN, JIMI L 380.10 OTITIS EXTERNA - RIGHT EAR 01/06/2008 MADL MANUFACTURING PROCESS TECHNICIAN, JIMI L 380.10 OTITIS EXTERNA - RIGHT EAR 01/06/2008 MADL MANUFACTURING PROCESS TECHNICIAN, JIMI L 380.10 OTITIS EXTERNA - RIGHT EAR 01/06/2008 MADL MANUFACTURING PROCESS TECHNICIAN, JIMI L 380.10 OTITIS EXTERNA - RIGHT EAR 01/06/2008 MADL MANUFACTURING PROCESS TECHNICIAN, JIMI L 380.10 OTITIS EXTERNA - RIGHT EAR 01/19/2008 382.9 UNSPECIFIED OTITIS MEDIA 01/19/2008 MIGUEL PAYNE, DANAE 382.9 UNSPECIFIED OTITIS MEDIA 01/19/2008 JAMIE DERAS MD 382.9 UNSPECIFIED OTITIS MEDIA 01/19/2008 NED PAYNE, CELESTE 382.9 UNSPECIFIED OTITIS MEDIA 01/19/2008 382.9 UNSPECIFIED OTITIS MEDIA 01/19/2008 JAMIE DERAS MD 382.9 UNSPECIFIED OTITIS MEDIA 01/19/2008 JAMIE DERAS MD 382.9 UNSPECIFIED OTITIS MEDIA 01/19/2008 JAMIE DERAS MD 382.9 UNSPECIFIED OTITIS MEDIA 01/19/2008 JAMIE DERAS MD 382.9 UNSPECIFIED OTITIS MEDIA 01/19/2008 382.9 UNSPECIFIED OTITIS MEDIA 01/19/2008 382.9 UNSPECIFIED OTITIS MEDIA 01/19/2008 382.9 UNSPECIFIED OTITIS MEDIA 01/19/2008 382.9 UNSPECIFIED OTITIS MEDIA 01/19/2008 382.9 UNSPECIFIED OTITIS MEDIA 01/19/2008 382.9 UNSPECIFIED OTITIS MEDIA 01/19/2008 382.9 UNSPECIFIED OTITIS MEDIA 01/19/2008 382.9 UNSPECIFIED OTITIS MEDIA 01/19/2008 382.9 UNSPECIFIED OTITIS MEDIA 01/19/2008 382.9 UNSPECIFIED OTITIS MEDIA 01/19/2008 382.9 UNSPECIFIED OTITIS MEDIA 01/19/2008 382.9 UNSPECIFIED OTITIS MEDIA 01/19/2008 JAMIE DERAS MD 382.9 UNSPECIFIED OTITIS MEDIA 01/19/2008 JAMIE DERAS MD 382.9 UNSPECIFIED OTITIS MEDIA 01/19/2008 JAMIE DERAS MD 382.9 UNSPECIFIED OTITIS MEDIA 01/19/2008 JUNIE MITCHELL, PAT R 382.9 UNSPECIFIED OTITIS MEDIA 01/19/2008 JAMIE DERAS MD 382.9 UNSPECIFIED OTITIS MEDIA 01/19/2008 JAMIE DERAS MD 382.9 UNSPECIFIED OTITIS MEDIA 01/19/2008 CHAPMAN DO, DAYANA K 382.9 UNSPECIFIED OTITIS MEDIA 01/19/2008 MADL MANUFACTURING PROCESS TECHNICIAN, JIMI L 382.9 UNSPECIFIED OTITIS MEDIA 01/19/2008 MADL MANUFACTURING PROCESS TECHNICIAN, JIMI L 382.9 UNSPECIFIED OTITIS MEDIA 01/19/2008 MADL MANUFACTURING PROCESS TECHNICIAN, JIMI L 382.9 UNSPECIFIED OTITIS MEDIA 01/19/2008 MADL MANUFACTURING PROCESS TECHNICIAN, JIMI L 382.9 UNSPECIFIED OTITIS MEDIA 01/19/2008 MADL MANUFACTURING PROCESS TECHNICIAN, JIMI L 382.9 UNSPECIFIED OTITIS MEDIA 01/19/2008 MADL MANUFACTURING PROCESS TECHNICIAN, JIMI L 382.9 UNSPECIFIED OTITIS MEDIA 01/19/2008 MADL MANUFACTURING PROCESS TECHNICIAN, JIMI L 382.9 UNSPECIFIED OTITIS MEDIA 01/19/2008 CHAPMAN DO, DAYANA K 382.9 UNSPECIFIED OTITIS MEDIA 01/19/2008 CHAPMAN DO, DAYANA K 382.9 UNSPECIFIED OTITIS MEDIA 01/19/2008 CHAPMAN DO, DAYANA K 382.9 UNSPECIFIED OTITIS MEDIA 01/19/2008 MADL MANUFACTURING PROCESS TECHNICIAN, JIMI L 382.9 UNSPECIFIED OTITIS MEDIA 01/19/2008 CHAPMAN DO, DAYANA K 382.9 UNSPECIFIED OTITIS MEDIA 01/19/2008 CHAPMAN DO, DAYANA K 382.9 UNSPECIFIED OTITIS MEDIA 01/19/2008 MADL MANUFACTURING PROCESS TECHNICIAN, JIMI L 382.9 UNSPECIFIED OTITIS MEDIA 01/19/2008 MADL MANUFACTURING PROCESS TECHNICIAN, JIMI L 382.9 UNSPECIFIED OTITIS MEDIA 01/19/2008 MADL MANUFACTURING PROCESS TECHNICIAN, JIMI L 382.9 UNSPECIFIED OTITIS MEDIA 01/19/2008 MADL MANUFACTURING PROCESS TECHNICIAN, JIMI L 382.9 UNSPECIFIED OTITIS MEDIA 01/19/2008 MADL MANUFACTURING PROCESS TECHNICIAN, JIMI L 382.9 UNSPECIFIED OTITIS MEDIA 01/19/2008 MADL MANUFACTURING PROCESS TECHNICIAN, JIMI L 382.9 UNSPECIFIED OTITIS MEDIA 01/19/2008 MADL MANUFACTURING PROCESS TECHNICIAN, JIMI L 382.9 UNSPECIFIED OTITIS MEDIA 01/19/2008 MADL MANUFACTURING PROCESS TECHNICIAN, JIMI L 382.9 UNSPECIFIED OTITIS MEDIA 01/19/2008 MADL MANUFACTURING PROCESS TECHNICIAN, JIMI L 382.9 UNSPECIFIED OTITIS MEDIA 01/19/2008 MADL MANUFACTURING PROCESS TECHNICIAN, JIMI L 382.9 UNSPECIFIED OTITIS MEDIA 01/19/2008 MADL MANUFACTURING PROCESS TECHNICIAN, JIMI L 382.9 UNSPECIFIED OTITIS MEDIA 01/19/2008 MADL MANUFACTURING PROCESS TECHNICIAN, JIMI L 382.9 UNSPECIFIED OTITIS MEDIA 01/19/2008 MADL MANUFACTURING PROCESS TECHNICIAN, JIMI L 382.9 UNSPECIFIED OTITIS MEDIA 01/19/2008 MADL MANUFACTURING PROCESS TECHNICIAN, JIMI L 382.9 UNSPECIFIED OTITIS MEDIA 01/19/2008 MADL MANUFACTURING PROCESS TECHNICIAN, JIMI L 382.9 UNSPECIFIED OTITIS MEDIA 01/19/2008 MADL MANUFACTURING PROCESS TECHNICIAN, JIMI L 382.9 UNSPECIFIED OTITIS MEDIA 04/12/2008 715.00 OSTEOARTHROSIS GENERALIZED INVOLVING UNSPECIFIED SITE 04/12/2008 DANAE RIVERA MD 715.00 OSTEOARTHROSIS GENERALIZED INVOLVING UNSPECIFIED SITE 04/12/2008 JAMIE DERAS MD 715.00 OSTEOARTHROSIS GENERALIZED INVOLVING UNSPECIFIED SITE 04/12/2008 CELESTE MARINO MD 715.00 OSTEOARTHROSIS GENERALIZED INVOLVING UNSPECIFIED SITE 04/12/2008 715.00 OSTEOARTHROSIS GENERALIZED INVOLVING UNSPECIFIED SITE 04/12/2008 JAMIE DERAS MD 715.00 OSTEOARTHROSIS GENERALIZED INVOLVING UNSPECIFIED SITE 04/12/2008 JAMIE DERAS MD 715.00 OSTEOARTHROSIS GENERALIZED INVOLVING UNSPECIFIED SITE 04/12/2008 JAMIE DERAS MD 715.00 OSTEOARTHROSIS GENERALIZED INVOLVING UNSPECIFIED SITE 04/12/2008 JAMIE DERAS MD 715.00 OSTEOARTHROSIS GENERALIZED INVOLVING UNSPECIFIED SITE 04/12/2008 715.00 OSTEOARTHROSIS GENERALIZED INVOLVING UNSPECIFIED SITE 04/12/2008 715.00 OSTEOARTHROSIS GENERALIZED INVOLVING UNSPECIFIED SITE 04/12/2008 715.00 OSTEOARTHROSIS GENERALIZED INVOLVING UNSPECIFIED SITE 04/12/2008 715.00 OSTEOARTHROSIS GENERALIZED INVOLVING UNSPECIFIED SITE 04/12/2008 715.00 OSTEOARTHROSIS GENERALIZED INVOLVING UNSPECIFIED SITE 04/12/2008 715.00 OSTEOARTHROSIS GENERALIZED INVOLVING UNSPECIFIED SITE 04/12/2008 715.00 OSTEOARTHROSIS GENERALIZED INVOLVING UNSPECIFIED SITE 04/12/2008 715.00 OSTEOARTHROSIS GENERALIZED INVOLVING UNSPECIFIED SITE 04/12/2008 715.00 OSTEOARTHROSIS GENERALIZED INVOLVING UNSPECIFIED SITE 04/12/2008 715.00 OSTEOARTHROSIS GENERALIZED INVOLVING UNSPECIFIED SITE 04/12/2008 715.00 OSTEOARTHROSIS GENERALIZED INVOLVING UNSPECIFIED SITE 04/12/2008 715.00 OSTEOARTHROSIS GENERALIZED INVOLVING UNSPECIFIED SITE 04/12/2008 JAMIE DERAS MD 715.00 OSTEOARTHROSIS GENERALIZED INVOLVING UNSPECIFIED SITE 04/12/2008 JAMIE DERAS MD 715.00 OSTEOARTHROSIS GENERALIZED INVOLVING UNSPECIFIED SITE 04/12/2008 JAMIE DERAS MD 715.00 OSTEOARTHROSIS GENERALIZED INVOLVING UNSPECIFIED SITE 04/12/2008 JUNIE MITCHELL PAT R 715.00 OSTEOARTHROSIS GENERALIZED INVOLVING UNSPECIFIED SITE 04/12/2008 JAMIE DERAS MD 715.00 OSTEOARTHROSIS GENERALIZED INVOLVING UNSPECIFIED SITE 04/12/2008 JAMIE DERAS MD 715.00 OSTEOARTHROSIS GENERALIZED INVOLVING UNSPECIFIED SITE 04/12/2008 CHAPMAN DO, DAYANA K 715.00 OSTEOARTHROSIS GENERALIZED INVOLVING UNSPECIFIED SITE 04/12/2008 MADL MANUFACTURING PROCESS TECHNICIAN, JIMI L 715.00 OSTEOARTHROSIS GENERALIZED INVOLVING UNSPECIFIED SITE 04/12/2008 MADL MANUFACTURING PROCESS TECHNICIAN, JIMI L 715.00 OSTEOARTHROSIS GENERALIZED INVOLVING UNSPECIFIED SITE 04/12/2008 MADL MANUFACTURING PROCESS TECHNICIAN, JIMI L 715.00 OSTEOARTHROSIS GENERALIZED INVOLVING UNSPECIFIED SITE 04/12/2008 MADL MANUFACTURING PROCESS TECHNICIAN, JIMI L 715.00 OSTEOARTHROSIS GENERALIZED INVOLVING UNSPECIFIED SITE 04/12/2008 MADL MANUFACTURING PROCESS TECHNICIAN, JIMI L 715.00 OSTEOARTHROSIS GENERALIZED INVOLVING UNSPECIFIED SITE 04/12/2008 MADL MANUFACTURING PROCESS TECHNICIAN, JIMI L 715.00 OSTEOARTHROSIS GENERALIZED INVOLVING UNSPECIFIED SITE 04/12/2008 MADL MANUFACTURING PROCESS TECHNICIAN, JIMI L 715.00 OSTEOARTHROSIS GENERALIZED INVOLVING UNSPECIFIED SITE 04/12/2008 CHAPMAN DO, DAYANA K 715.00 OSTEOARTHROSIS GENERALIZED INVOLVING UNSPECIFIED SITE 04/12/2008 CHAPMAN DO, DAYANA K 715.00 OSTEOARTHROSIS GENERALIZED INVOLVING UNSPECIFIED SITE 04/12/2008 CHAPMAN DO, DAYANA K 715.00 OSTEOARTHROSIS GENERALIZED INVOLVING UNSPECIFIED SITE 04/12/2008 MADL MANUFACTURING PROCESS TECHNICIAN, JIMI L 715.00 OSTEOARTHROSIS GENERALIZED INVOLVING UNSPECIFIED SITE 04/12/2008 CHAPMAN DO, DAYANA K 715.00 OSTEOARTHROSIS GENERALIZED INVOLVING UNSPECIFIED SITE 04/12/2008 CHAPMAN DO, DAYANA K 715.00 OSTEOARTHROSIS GENERALIZED INVOLVING UNSPECIFIED SITE 04/12/2008 MADL MANUFACTURING PROCESS TECHNICIAN, JIMI L 715.00 OSTEOARTHROSIS GENERALIZED INVOLVING UNSPECIFIED SITE 04/12/2008 MADL MANUFACTURING PROCESS TECHNICIAN, JIMI L 715.00 OSTEOARTHROSIS GENERALIZED INVOLVING UNSPECIFIED SITE 04/12/2008 MADL MANUFACTURING PROCESS TECHNICIAN, JIMI L 715.00 OSTEOARTHROSIS GENERALIZED INVOLVING UNSPECIFIED SITE 04/12/2008 MADL MANUFACTURING PROCESS TECHNICIAN, JIMI L 715.00 OSTEOARTHROSIS GENERALIZED INVOLVING UNSPECIFIED SITE 04/12/2008 MADL MANUFACTURING PROCESS TECHNICIAN, JIMI L 715.00 OSTEOARTHROSIS GENERALIZED INVOLVING UNSPECIFIED SITE 04/12/2008 MADL MANUFACTURING PROCESS TECHNICIAN, JIMI L 715.00 OSTEOARTHROSIS GENERALIZED INVOLVING UNSPECIFIED SITE 04/12/2008 MADL MANUFACTURING PROCESS TECHNICIAN, JIMI L 715.00 OSTEOARTHROSIS GENERALIZED INVOLVING UNSPECIFIED SITE 04/12/2008 MADL MANUFACTURING PROCESS TECHNICIAN, JIMI L 715.00 OSTEOARTHROSIS GENERALIZED INVOLVING UNSPECIFIED SITE 04/12/2008 MADL MANUFACTURING PROCESS TECHNICIAN, JIMI L 715.00 OSTEOARTHROSIS GENERALIZED INVOLVING UNSPECIFIED SITE 04/12/2008 MADL MANUFACTURING PROCESS TECHNICIAN, JIMI L 715.00 OSTEOARTHROSIS GENERALIZED INVOLVING UNSPECIFIED SITE 04/12/2008 MADL MANUFACTURING PROCESS TECHNICIAN, JIMI L 715.00 OSTEOARTHROSIS GENERALIZED INVOLVING UNSPECIFIED SITE 04/12/2008 MADL MANUFACTURING PROCESS TECHNICIAN, JIMI L 715.00 OSTEOARTHROSIS GENERALIZED INVOLVING UNSPECIFIED SITE 04/12/2008 MADL MANUFACTURING PROCESS TECHNICIAN, JIMI L 715.00 OSTEOARTHROSIS GENERALIZED INVOLVING UNSPECIFIED SITE 04/12/2008 MADL MANUFACTURING PROCESS TECHNICIAN, JIMI L 715.00 OSTEOARTHROSIS GENERALIZED INVOLVING UNSPECIFIED SITE 04/12/2008 MADL MANUFACTURING PROCESS TECHNICIAN, JIMI L 715.00 OSTEOARTHROSIS GENERALIZED INVOLVING UNSPECIFIED SITE 04/12/2008 MADL MANUFACTURING PROCESS TECHNICIAN, JIMI L 715.00 OSTEOARTHROSIS GENERALIZED INVOLVING UNSPECIFIED SITE 05/03/2008 461.9 SINUSITIS ACUTE 05/03/2008 MIGUEL PAYNE, DANAE 461.9 SINUSITIS ACUTE 05/03/2008 JAMIE DERAS MD 461.9 SINUSITIS ACUTE 05/03/2008 NED PAYNE, CELESTE 461.9 SINUSITIS ACUTE 05/03/2008 461.9 SINUSITIS ACUTE 05/03/2008 JAMIE DERAS MD 461.9 SINUSITIS ACUTE 05/03/2008 JAMIE DERAS MD 461.9 SINUSITIS ACUTE 05/03/2008 JAMIE DERAS MD 461.9 SINUSITIS ACUTE 05/03/2008 JAMIE DERAS MD 461.9 SINUSITIS ACUTE 05/03/2008 461.9 SINUSITIS ACUTE 05/03/2008 461.9 SINUSITIS ACUTE 05/03/2008 461.9 SINUSITIS ACUTE 05/03/2008 461.9 SINUSITIS ACUTE 05/03/2008 461.9 SINUSITIS ACUTE 05/03/2008 461.9 SINUSITIS ACUTE 05/03/2008 461.9 SINUSITIS ACUTE 05/03/2008 461.9 SINUSITIS ACUTE 05/03/2008 461.9 SINUSITIS ACUTE 05/03/2008 461.9 SINUSITIS ACUTE 05/03/2008 461.9 SINUSITIS ACUTE 05/03/2008 461.9 SINUSITIS ACUTE 05/03/2008 JAMIE DERAS MD 461.9 SINUSITIS ACUTE 05/03/2008 JAMIE DERAS MD 461.9 SINUSITIS ACUTE 05/03/2008 JAMIE DERAS MD 461.9 SINUSITIS ACUTE 05/03/2008 JUNIE MITCHELL, PAT R 461.9 SINUSITIS ACUTE 05/03/2008 JAMIE DERAS MD 461.9 SINUSITIS ACUTE 05/03/2008 JAMIE DERAS MD 461.9 SINUSITIS ACUTE 05/03/2008 DAYANA CHAPMAN DO 461.9 SINUSITIS ACUTE 05/03/2008 MADL MANUFACTURING PROCESS TECHNICIAN, JIMI L 461.9 SINUSITIS ACUTE 05/03/2008 MADL MANUFACTURING PROCESS TECHNICIAN, JIMI L 461.9 SINUSITIS ACUTE 05/03/2008 MADL MANUFACTURING PROCESS TECHNICIAN, JIMI L 461.9 SINUSITIS ACUTE 05/03/2008 MADL MANUFACTURING PROCESS TECHNICIAN, JIMI L 461.9 SINUSITIS ACUTE 05/03/2008 MADL MANUFACTURING PROCESS TECHNICIAN, JIMI L 461.9 SINUSITIS ACUTE 05/03/2008 MADL MANUFACTURING PROCESS TECHNICIAN, JIMI L 461.9 SINUSITIS ACUTE 05/03/2008 MADL MANUFACTURING PROCESS TECHNICIAN, JIMI L 461.9 SINUSITIS ACUTE 05/03/2008 CHAPMAN DO, DAYANA K 461.9 SINUSITIS ACUTE 05/03/2008 CHAPMAN DO, DAYANA K 461.9 SINUSITIS ACUTE 05/03/2008 CHAPMAN DO, DAYANA K 461.9 SINUSITIS ACUTE 05/03/2008 MADL MANUFACTURING PROCESS TECHNICIAN, JIMI L 461.9 SINUSITIS ACUTE 05/03/2008 CHAPMAN DO, DAYANA K 461.9 SINUSITIS ACUTE 05/03/2008 CHAPMAN DO, DAYANA K 461.9 SINUSITIS ACUTE 05/03/2008 MADL MANUFACTURING PROCESS TECHNICIAN, JIMI L 461.9 SINUSITIS ACUTE 05/03/2008 MADL MANUFACTURING PROCESS TECHNICIAN, JIMI L 461.9 SINUSITIS ACUTE 05/03/2008 MADL MANUFACTURING PROCESS TECHNICIAN, JIMI L 461.9 SINUSITIS ACUTE 05/03/2008 MADL MANUFACTURING PROCESS TECHNICIAN, JIMI L 461.9 SINUSITIS ACUTE 05/03/2008 MADL MANUFACTURING PROCESS TECHNICIAN, JIMI L 461.9 SINUSITIS ACUTE 05/03/2008 MADL MANUFACTURING PROCESS TECHNICIAN, JIMI L 461.9 SINUSITIS ACUTE 05/03/2008 MADL MANUFACTURING PROCESS TECHNICIAN, JIMI L 461.9 SINUSITIS ACUTE 05/03/2008 MADL MANUFACTURING PROCESS TECHNICIAN, JIMI L 461.9 SINUSITIS ACUTE 05/03/2008 MADL MANUFACTURING PROCESS TECHNICIAN, JIMI L 461.9 SINUSITIS ACUTE 05/03/2008 MADL MANUFACTURING PROCESS TECHNICIAN, JIMI L 461.9 SINUSITIS ACUTE 05/03/2008 MADL MANUFACTURING PROCESS TECHNICIAN, JIMI L 461.9 SINUSITIS ACUTE 05/03/2008 MADL MANUFACTURING PROCESS TECHNICIAN, JIMI L 461.9 SINUSITIS ACUTE 05/03/2008 MADL MANUFACTURING PROCESS TECHNICIAN, JIMI L 461.9 SINUSITIS ACUTE 05/03/2008 MADL MANUFACTURING PROCESS TECHNICIAN, JIMI L 461.9 SINUSITIS ACUTE 05/03/2008 MADL MANUFACTURING PROCESS TECHNICIAN, JIMI L 461.9 SINUSITIS ACUTE 05/03/2008 MADL MANUFACTURING PROCESS TECHNICIAN, JIMI L 461.9 SINUSITIS ACUTE 07/26/2008 388.70 earache 07/26/2008 723.1 CERVICALGIA 07/26/2008 MIGUEL PAYNE, DANAE 388.70 earache 07/26/2008 MIGUEL PAYNE, DANAE 723.1 CERVICALGIA 07/26/2008 JAMIE DERAS MD 388.70 earache 07/26/2008 JAMIE DERAS MD 723.1 CERVICALGIA 07/26/2008 CELESTE MARINO MD 388.70 earache 07/26/2008 CELESTE MARINO MD 723.1 CERVICALGIA 07/26/2008 388.70 earache 07/26/2008 723.1 CERVICALGIA 07/26/2008 JAMIE DERAS MD 388.70 earache 07/26/2008 JAMIE DERAS MD 723.1 CERVICALGIA 07/26/2008 JAMIE DERAS MD 388.70 earache 07/26/2008 JAMIE DERAS MD 723.1 CERVICALGIA 07/26/2008 JAMIE DERAS MD 388.70 earache 07/26/2008 JAMIE DERAS MD 723.1 CERVICALGIA 07/26/2008 JAMIE DERAS MD 388.70 earache 07/26/2008 JAMIE DERAS MD 723.1 CERVICALGIA 07/26/2008 388.70 earache 07/26/2008 723.1 CERVICALGIA 07/26/2008 388.70 earache 07/26/2008 723.1 CERVICALGIA 07/26/2008 388.70 earache 07/26/2008 723.1 CERVICALGIA 07/26/2008 388.70 earache 07/26/2008 723.1 CERVICALGIA 07/26/2008 388.70 earache 07/26/2008 723.1 CERVICALGIA 07/26/2008 388.70 earache 07/26/2008 723.1 CERVICALGIA 07/26/2008 388.70 earache 07/26/2008 723.1 CERVICALGIA 07/26/2008 388.70 earache 07/26/2008 723.1 CERVICALGIA 07/26/2008 388.70 earache 07/26/2008 723.1 CERVICALGIA 07/26/2008 388.70 earache 07/26/2008 723.1 CERVICALGIA 07/26/2008 388.70 earache 07/26/2008 723.1 CERVICALGIA 07/26/2008 388.70 earache 07/26/2008 723.1 CERVICALGIA 07/26/2008 JAMIE DERAS MD M 388.70 earache 07/26/2008 JAMIE DERAS MD 723.1 CERVICALGIA 07/26/2008 JAMIE DERAS MD M 388.70 earache 07/26/2008 JAMIE DERAS MD 723.1 CERVICALGIA 07/26/2008 JAMIE DERAS MD M 388.70 earache 07/26/2008 JAMIE DERAS MD 723.1 CERVICALGIA 07/26/2008 JUNIE MANUFACTURING PROCESS TECHNICIAN, PAT R 388.70 earache 07/26/2008 JUNIE MANUFACTURING PROCESS TECHNICIAN, PAT R 723.1 CERVICALGIA 07/26/2008 JAMIE DERAS MD M 388.70 earache 07/26/2008 JAMIE DERAS MD 723.1 CERVICALGIA 07/26/2008 JAMIE DERAS MD M 388.70 earache 07/26/2008 JAMIE DERAS MD 723.1 CERVICALGIA 07/26/2008 CHAPMAN DO, DAYANA K 388.70 earache 07/26/2008 CHAPMAN DO, DAYANA K 723.1 CERVICALGIA 07/26/2008 MADL MANUFACTURING PROCESS TECHNICIAN, JIMI L 388.70 earache 07/26/2008 MADL MANUFACTURING PROCESS TECHNICIAN, JIMI L 723.1 CERVICALGIA 07/26/2008 MADL MANUFACTURING PROCESS TECHNICIAN, JIMI L 388.70 earache 07/26/2008 MADL MANUFACTURING PROCESS TECHNICIAN, JIMI L 723.1 CERVICALGIA 07/26/2008 MADL MANUFACTURING PROCESS TECHNICIAN, JIMI L 388.70 earache 07/26/2008 MADL MANUFACTURING PROCESS TECHNICIAN, JIMI L 723.1 CERVICALGIA 07/26/2008 MADL MANUFACTURING PROCESS TECHNICIAN, JIMI L 388.70 earache 07/26/2008 MADL MANUFACTURING PROCESS TECHNICIAN, JIMI L 723.1 CERVICALGIA 07/26/2008 MADL MANUFACTURING PROCESS TECHNICIAN, JIMI L 388.70 earache 07/26/2008 MADL MANUFACTURING PROCESS TECHNICIAN, JIMI L 723.1 CERVICALGIA 07/26/2008 MADL MANUFACTURING PROCESS TECHNICIAN, JIMI L 388.70 earache 07/26/2008 MADL MANUFACTURING PROCESS TECHNICIAN, JIMI L 723.1 CERVICALGIA 07/26/2008 MADL MANUFACTURING PROCESS TECHNICIAN, JIMI L 388.70 earache 07/26/2008 MADL MANUFACTURING PROCESS TECHNICIAN, JIMI L 723.1 CERVICALGIA 07/26/2008 CHAPMAN DO, DAYANA K 388.70 earache 07/26/2008 CHAPMAN DO, DAYANA K 723.1 CERVICALGIA 07/26/2008 CHAPMAN DO, DAYANA K 388.70 earache 07/26/2008 CHAPMAN DO, DAYANA K 723.1 CERVICALGIA 07/26/2008 CHAPMAN DO, DAYANA K 388.70 earache 07/26/2008 CHAPMAN DO, DAYANA K 723.1 CERVICALGIA 07/26/2008 MADL MANUFACTURING PROCESS TECHNICIAN, JIMI L 388.70 earache 07/26/2008 MADL MANUFACTURING PROCESS TECHNICIAN, JIMI L 723.1 CERVICALGIA 07/26/2008 CHAPMAN DO, DAYANA K 388.70 earache 07/26/2008 CHAPMAN DO, DAYANA K 723.1 CERVICALGIA 07/26/2008 CHAPMAN DO, DAYANA K 388.70 earache 07/26/2008 CHAPMAN DO, DAYANA K 723.1 CERVICALGIA 07/26/2008 MADL MANUFACTURING PROCESS TECHNICIAN, JIMI L 388.70 earache 07/26/2008 MADL MANUFACTURING PROCESS TECHNICIAN, JIMI L 723.1 CERVICALGIA 07/26/2008 MADL MANUFACTURING PROCESS TECHNICIAN, JIMI L 388.70 earache 07/26/2008 MADL MANUFACTURING PROCESS TECHNICIAN, JIMI L 723.1 CERVICALGIA 07/26/2008 MADL MANUFACTURING PROCESS TECHNICIAN, JIMI L 388.70 earache 07/26/2008 MADL MANUFACTURING PROCESS TECHNICIAN, JIMI L 723.1 CERVICALGIA 07/26/2008 MADL MANUFACTURING PROCESS TECHNICIAN, JIMI L 388.70 earache 07/26/2008 MADL MANUFACTURING PROCESS TECHNICIAN, JIMI L 723.1 CERVICALGIA 07/26/2008 MADL MANUFACTURING PROCESS TECHNICIAN, JIMI L 388.70 earache 07/26/2008 MADL MANUFACTURING PROCESS TECHNICIAN, JIMI L 723.1 CERVICALGIA 07/26/2008 MADL MANUFACTURING PROCESS TECHNICIAN, JIMI L 388.70 earache 07/26/2008 MADL MANUFACTURING PROCESS TECHNICIAN, JIMI L 723.1 CERVICALGIA 07/26/2008 MADL MANUFACTURING PROCESS TECHNICIAN, JIMI L 388.70 earache 07/26/2008 MADL MANUFACTURING PROCESS TECHNICIAN, JIMI L 723.1 CERVICALGIA 07/26/2008 MADL MANUFACTURING PROCESS TECHNICIAN, JIMI L 388.70 earache 07/26/2008 MADL MANUFACTURING PROCESS TECHNICIAN, JIMI L 723.1 CERVICALGIA 07/26/2008 MADL MANUFACTURING PROCESS TECHNICIAN, JIMI L 388.70 earache 07/26/2008 MADL MANUFACTURING PROCESS TECHNICIAN, JIMI L 723.1 CERVICALGIA 07/26/2008 MADL MANUFACTURING PROCESS TECHNICIAN, JIMI L 388.70 earache 07/26/2008 MADL MANUFACTURING PROCESS TECHNICIAN, JIMI L 723.1 CERVICALGIA 07/26/2008 MADL MANUFACTURING PROCESS TECHNICIAN, JIMI L 388.70 earache 07/26/2008 MADL MANUFACTURING PROCESS TECHNICIAN, JIMI L 723.1 CERVICALGIA 07/26/2008 MADL MANUFACTURING PROCESS TECHNICIAN, JIMI L 388.70 earache 07/26/2008 MADL MANUFACTURING PROCESS TECHNICIAN, JIMI L 723.1 CERVICALGIA 07/26/2008 MADL MANUFACTURING PROCESS TECHNICIAN, JIMI L 388.70 earache 07/26/2008 MADL MANUFACTURING PROCESS TECHNICIAN, JIMI L 723.1 CERVICALGIA 07/26/2008 MADL MANUFACTURING PROCESS TECHNICIAN, JIMI L 388.70 earache 07/26/2008 MADL MANUFACTURING PROCESS TECHNICIAN, JIMI L 723.1 CERVICALGIA 07/26/2008 MADL MANUFACTURING PROCESS TECHNICIAN, JIMI L 388.70 earache 07/26/2008 MADL MANUFACTURING PROCESS TECHNICIAN, JIMI L 723.1 CERVICALGIA 07/26/2008 MADL MANUFACTURING PROCESS TECHNICIAN, JIMI L 388.70 earache 07/26/2008 MADL MANU[employer] PROCESS TECHNICIAN, JIMI L 723.1 CERVICALGIA 02/03/2009 401.1 BENIGN ESSENTIAL HYPERTENSION 02/03/2009 728.85 SPASM OF MUSCLE 02/03/2009 DANAE RIVERA MD 401.1 BENIGN ESSENTIAL HYPERTENSION 02/03/2009 DANAE RIVERA MD 728.85 SPASM OF MUSCLE 02/03/2009 JAMIE DERAS MD 401.1 BENIGN ESSENTIAL HYPERTENSION 02/03/2009 JAMIE DERAS MD 728.85 SPASM OF MUSCLE 02/03/2009 CELESTE MARINO MD 401.1 BENIGN ESSENTIAL HYPERTENSION 02/03/2009 CELESTE MARINO MD 728.85 SPASM OF MUSCLE 02/03/2009 401.1 BENIGN ESSENTIAL HYPERTENSION 02/03/2009 728.85 SPASM OF MUSCLE 02/03/2009 JAMIE DERAS MD 401.1 BENIGN ESSENTIAL HYPERTENSION 02/03/2009 JAMIE DERAS MD 728.85 SPASM OF MUSCLE 02/03/2009 JAMIE DERAS MD 401.1 BENIGN ESSENTIAL HYPERTENSION 02/03/2009 JAMIE DERAS MD 728.85 SPASM OF MUSCLE 02/03/2009 JAMIE DERAS MD 401.1 BENIGN ESSENTIAL HYPERTENSION 02/03/2009 JAMIE DERAS MD 728.85 SPASM OF MUSCLE 02/03/2009 JAMIE DERAS MD 401.1 BENIGN ESSENTIAL HYPERTENSION 02/03/2009 JAMIE DERAS MD 728.85 SPASM OF MUSCLE 02/03/2009 401.1 BENIGN ESSENTIAL HYPERTENSION 02/03/2009 728.85 SPASM OF MUSCLE 02/03/2009 401.1 BENIGN ESSENTIAL HYPERTENSION 02/03/2009 728.85 SPASM OF MUSCLE 02/03/2009 401.1 BENIGN ESSENTIAL HYPERTENSION 02/03/2009 728.85 SPASM OF MUSCLE 02/03/2009 401.1 BENIGN ESSENTIAL HYPERTENSION 02/03/2009 728.85 SPASM OF MUSCLE 02/03/2009 401.1 BENIGN ESSENTIAL HYPERTENSION 02/03/2009 728.85 SPASM OF MUSCLE 02/03/2009 401.1 BENIGN ESSENTIAL HYPERTENSION 02/03/2009 728.85 SPASM OF MUSCLE 02/03/2009 401.1 BENIGN ESSENTIAL HYPERTENSION 02/03/2009 728.85 SPASM OF MUSCLE 02/03/2009 401.1 BENIGN ESSENTIAL HYPERTENSION 02/03/2009 728.85 SPASM OF MUSCLE 02/03/2009 401.1 BENIGN ESSENTIAL HYPERTENSION 02/03/2009 728.85 SPASM OF MUSCLE 02/03/2009 401.1 BENIGN ESSENTIAL HYPERTENSION 02/03/2009 728.85 SPASM OF MUSCLE 02/03/2009 401.1 BENIGN ESSENTIAL HYPERTENSION 02/03/2009 728.85 SPASM OF MUSCLE 02/03/2009 401.1 BENIGN ESSENTIAL HYPERTENSION 02/03/2009 728.85 SPASM OF MUSCLE 02/03/2009 JAMIE DERAS MD 401.1 BENIGN ESSENTIAL HYPERTENSION 02/03/2009 JAMIE DERAS MD 728.85 SPASM OF MUSCLE 02/03/2009 JAMIE DERAS MD 401.1 BENIGN ESSENTIAL HYPERTENSION 02/03/2009 JAMIE DERAS MD 728.85 SPASM OF MUSCLE 02/03/2009 JAMIE DERAS MD 401.1 BENIGN ESSENTIAL HYPERTENSION 02/03/2009 JAMIE DERAS MD 728.85 SPASM OF MUSCLE 02/03/2009 JUNIE MANUFACTURING PROCESS TECHNICIAN, PAT R 401.1 BENIGN ESSENTIAL HYPERTENSION 02/03/2009 JUNIE MANUFACTURING PROCESS TECHNICIAN, PAT R 728.85 SPASM OF MUSCLE 02/03/2009 JAMIE DERAS MD 401.1 BENIGN ESSENTIAL HYPERTENSION 02/03/2009 JAMIE DERAS MD 728.85 SPASM OF MUSCLE 02/03/2009 JAMIE DERAS MD 401.1 BENIGN ESSENTIAL HYPERTENSION 02/03/2009 JAMIE DERAS MD 728.85 SPASM OF MUSCLE 02/03/2009 CHAPMAN DO, DAYANA K 401.1 BENIGN ESSENTIAL HYPERTENSION 02/03/2009 CHAPMAN DO, DAYANA K 728.85 SPASM OF MUSCLE 02/03/2009 MADL MANUFACTURING PROCESS TECHNICIAN, JIMI L 401.1 BENIGN ESSENTIAL HYPERTENSION 02/03/2009 MADL MANUFACTURING PROCESS TECHNICIAN, JIMI L 728.85 SPASM OF MUSCLE 02/03/2009 MADL MANUFACTURING PROCESS TECHNICIAN, JIMI L 401.1 BENIGN ESSENTIAL HYPERTENSION 02/03/2009 MADL MANUFACTURING PROCESS TECHNICIAN, JIMI L 728.85 SPASM OF MUSCLE 02/03/2009 MADL MANUFACTURING PROCESS TECHNICIAN, JIMI L 401.1 BENIGN ESSENTIAL HYPERTENSION 02/03/2009 MADL MANUFACTURING PROCESS TECHNICIAN, JIMI L 728.85 SPASM OF MUSCLE 02/03/2009 MADL MANUFACTURING PROCESS TECHNICIAN, JIMI L 401.1 BENIGN ESSENTIAL HYPERTENSION 02/03/2009 MADL MANUFACTURING PROCESS TECHNICIAN, JIMI L 728.85 SPASM OF MUSCLE 02/03/2009 MADL MANUFACTURING PROCESS TECHNICIAN, JIMI L 401.1 BENIGN ESSENTIAL HYPERTENSION 02/03/2009 MADL MANUFACTURING PROCESS TECHNICIAN, JIMI L 728.85 SPASM OF MUSCLE 02/03/2009 MADL MANUFACTURING PROCESS TECHNICIAN, JIMI L 401.1 BENIGN ESSENTIAL HYPERTENSION 02/03/2009 MADL MANUFACTURING PROCESS TECHNICIAN, JIMI L 728.85 SPASM OF MUSCLE 02/03/2009 MADL MANUFACTURING PROCESS TECHNICIAN, JIMI L 401.1 BENIGN ESSENTIAL HYPERTENSION 02/03/2009 MADL MANUFACTURING PROCESS TECHNICIAN, JIMI L 728.85 SPASM OF MUSCLE 02/03/2009 CHAPMAN DO, DAYANA K 401.1 BENIGN ESSENTIAL HYPERTENSION 02/03/2009 CHAPMAN DO, DAYANA K 728.85 SPASM OF MUSCLE 02/03/2009 CHAPMAN DO, DAYANA K 401.1 BENIGN ESSENTIAL HYPERTENSION 02/03/2009 CHAPMAN DO, DAYANA K 728.85 SPASM OF MUSCLE 02/03/2009 CHAPMAN DO, DAYANA K 401.1 BENIGN ESSENTIAL HYPERTENSION 02/03/2009 CHAPMAN DO, DAYANA K 728.85 SPASM OF MUSCLE 02/03/2009 MADL MANUFACTURING PROCESS TECHNICIAN, JIMI L 401.1 BENIGN ESSENTIAL HYPERTENSION 02/03/2009 MADL MANUFACTURING PROCESS TECHNICIAN, JIMI L 728.85 SPASM OF MUSCLE 02/03/2009 CHAPMAN DO, DAYANA K 401.1 BENIGN ESSENTIAL HYPERTENSION 02/03/2009 CHAPMAN DO, DAYANA K 728.85 SPASM OF MUSCLE 02/03/2009 CHAPMAN DO, DAYANA K 401.1 BENIGN ESSENTIAL HYPERTENSION 02/03/2009 CHAPMAN DO, DAYANA K 728.85 SPASM OF MUSCLE 02/03/2009 MADL MANUFACTURING PROCESS TECHNICIAN, JIMI L 401.1 BENIGN ESSENTIAL HYPERTENSION 02/03/2009 MADL MANUFACTURING PROCESS TECHNICIAN, JIMI L 728.85 SPASM OF MUSCLE 02/03/2009 MADL MANUFACTURING PROCESS TECHNICIAN, JIMI L 401.1 BENIGN ESSENTIAL HYPERTENSION 02/03/2009 MADL MANUFACTURING PROCESS TECHNICIAN, JIMI L 728.85 SPASM OF MUSCLE 02/03/2009 MADL MANUFACTURING PROCESS TECHNICIAN, JIMI L 401.1 BENIGN ESSENTIAL HYPERTENSION 02/03/2009 MADL MANUFACTURING PROCESS TECHNICIAN, JIMI L 728.85 SPASM OF MUSCLE 02/03/2009 MADL MANUFACTURING PROCESS TECHNICIAN, JIMI L 401.1 BENIGN ESSENTIAL HYPERTENSION 02/03/2009 MADL MANUFACTURING PROCESS TECHNICIAN, JIMI L 728.85 SPASM OF MUSCLE 02/03/2009 MADL MANUFACTURING PROCESS TECHNICIAN, JIMI L 401.1 BENIGN ESSENTIAL HYPERTENSION 02/03/2009 MADL MANUFACTURING PROCESS TECHNICIAN, JIMI L 728.85 SPASM OF MUSCLE 02/03/2009 MADL MANUFACTURING PROCESS TECHNICIAN, JIMI L 401.1 BENIGN ESSENTIAL HYPERTENSION 02/03/2009 MADL MANUFACTURING PROCESS TECHNICIAN, JIMI L 728.85 SPASM OF MUSCLE 02/03/2009 MADL MANUFACTURING PROCESS TECHNICIAN, JIMI L 401.1 BENIGN ESSENTIAL HYPERTENSION 02/03/2009 MADL MANUFACTURING PROCESS TECHNICIAN, JIMI L 728.85 SPASM OF MUSCLE 02/03/2009 MADL MANUFACTURING PROCESS TECHNICIAN, JIMI L 401.1 BENIGN ESSENTIAL HYPERTENSION 02/03/2009 MADL MANUFACTURING PROCESS TECHNICIAN, JIMI L 728.85 SPASM OF MUSCLE 02/03/2009 MADL MANUFACTURING PROCESS TECHNICIAN, JIMI L 401.1 BENIGN ESSENTIAL HYPERTENSION 02/03/2009 MADL MANUFACTURING PROCESS TECHNICIAN, JIMI L 728.85 SPASM OF MUSCLE 02/03/2009 MADL MANUFACTURING PROCESS TECHNICIAN, JIMI L 401.1 BENIGN ESSENTIAL HYPERTENSION 02/03/2009 MADL MANUFACTURING PROCESS TECHNICIAN, JIMI L 728.85 SPASM OF MUSCLE 02/03/2009 MADL MANUFACTURING PROCESS TECHNICIAN, JIMI L 401.1 BENIGN ESSENTIAL HYPERTENSION 02/03/2009 MADL MANUFACTURING PROCESS TECHNICIAN, JIMI L 728.85 SPASM OF MUSCLE 02/03/2009 MADL MANUFACTURING PROCESS TECHNICIAN, JIMI L 401.1 BENIGN ESSENTIAL HYPERTENSION 02/03/2009 MADL MANUFACTURING PROCESS TECHNICIAN, JIMI L 728.85 SPASM OF MUSCLE 02/03/2009 MADL MANUFACTURING PROCESS TECHNICIAN, JIMI L 401.1 BENIGN ESSENTIAL HYPERTENSION 02/03/2009 MADL MANUFACTURING PROCESS TECHNICIAN, JIMI L 728.85 SPASM OF MUSCLE 02/03/2009 MADL MANUFACTURING PROCESS TECHNICIAN, JIMI L 401.1 BENIGN ESSENTIAL HYPERTENSION 02/03/2009 MADL MANUFACTURING PROCESS TECHNICIAN, JIMI L 728.85 SPASM OF MUSCLE 02/03/2009 MADL MANUFACTURING PROCESS TECHNICIAN, JIMI L 401.1 BENIGN ESSENTIAL HYPERTENSION 02/03/2009 MADL MANUFACTURING PROCESS TECHNICIAN, JIMI L 728.85 SPASM OF MUSCLE 02/03/2009 JIMI ROBB APRN 401.1 BENIGN ESSENTIAL HYPERTENSION 02/03/2009 JIMI ROBB APRN 728.85 SPASM OF MUSCLE 07/25/2009 630 HYDATIDIFORM MOLE (MOLAR - NON-METASTATIC GTD) 07/25/2009 DANAE RIVERA MD 630 HYDATIDIFORM MOLE (MOLAR - NON-METASTATIC GTD) 07/25/2009 JAMIE DERAS MD 630 HYDATIDIFORM MOLE (MOLAR - NON-METASTATIC GTD) 07/25/2009 CELESTE MARINO MD 630 HYDATIDIFORM MOLE (MOLAR - NON-METASTATIC GTD) 07/25/2009 630 HYDATIDIFORM MOLE (MOLAR - NON-METASTATIC GTD) 07/25/2009 JAMIE DERAS MD 630 HYDATIDIFORM MOLE (MOLAR - NON-METASTATIC GTD) 07/25/2009 JAMIE DERAS MD 630 HYDATIDIFORM MOLE (MOLAR - NON-METASTATIC GTD) 07/25/2009 JAMIE DERAS MD 630 HYDATIDIFORM MOLE (MOLAR - NON-METASTATIC GTD) 07/25/2009 JAMIE DERAS MD 630 HYDATIDIFORM MOLE (MOLAR - NON-METASTATIC GTD) 07/25/2009 630 HYDATIDIFORM MOLE (MOLAR - NON-METASTATIC GTD) 07/25/2009 630 HYDATIDIFORM MOLE (MOLAR - NON-METASTATIC GTD) 07/25/2009 630 HYDATIDIFORM MOLE (MOLAR - NON-METASTATIC GTD) 07/25/2009 630 HYDATIDIFORM MOLE (MOLAR - NON-METASTATIC GTD) 07/25/2009 630 HYDATIDIFORM MOLE (MOLAR - NON-METASTATIC GTD) 07/25/2009 630 HYDATIDIFORM MOLE (MOLAR - NON-METASTATIC GTD) 07/25/2009 630 HYDATIDIFORM MOLE (MOLAR - NON-METASTATIC GTD) 07/25/2009 630 HYDATIDIFORM MOLE (MOLAR - NON-METASTATIC GTD) 07/25/2009 630 HYDATIDIFORM MOLE (MOLAR - NON-METASTATIC GTD) 07/25/2009 630 HYDATIDIFORM MOLE (MOLAR - NON-METASTATIC GTD) 07/25/2009 630 HYDATIDIFORM MOLE (MOLAR - NON-METASTATIC GTD) 07/25/2009 630 HYDATIDIFORM MOLE (MOLAR - NON-METASTATIC GTD) 07/25/2009 JAMIE DERAS MD 630 HYDATIDIFORM MOLE (MOLAR - NON-METASTATIC GTD) 07/25/2009 JAMIE DERAS MD 630 HYDATIDIFORM MOLE (MOLAR - NON-METASTATIC GTD) 07/25/2009 JAMIE DERAS MD 630 HYDATIDIFORM MOLE (MOLAR - NON-METASTATIC GTD) 07/25/2009 PAT ZAMAN APRN 630 HYDATIDIFORM MOLE (MOLAR - NON-METASTATIC GTD) 07/25/2009 JAMIE DERAS MD 630 HYDATIDIFORM MOLE (MOLAR - NON-METASTATIC GTD) 07/25/2009 JAMIE DERAS MD 630 HYDATIDIFORM MOLE (MOLAR - NON-METASTATIC GTD) 07/25/2009 DAYANA CHAPMAN DO 630 HYDATIDIFORM MOLE (MOLAR - NON-METASTATIC GTD) 07/25/2009 CEZAR MANUFACTURING PROCESS TECHNICIAN, JIMI L 630 HYDATIDIFORM MOLE (MOLAR - NON-METASTATIC GTD) 07/25/2009 CEZAR MANUFACTURING PROCESS TECHNICIAN, JIMI L 630 HYDATIDIFORM MOLE (MOLAR - NON-METASTATIC GTD) 07/25/2009 CEZAR MANUFACTURING PROCESS TECHNICIAN, JIMI L 630 HYDATIDIFORM MOLE (MOLAR - NON-METASTATIC GTD) 07/25/2009 CEZAR MANUFACTURING PROCESS TECHNICIAN, JIMI L 630 HYDATIDIFORM MOLE (MOLAR - NON-METASTATIC GTD) 07/25/2009 CEZAR MANUFACTURING PROCESS TECHNICIAN, JIMI L 630 HYDATIDIFORM MOLE (MOLAR - NON-METASTATIC GTD) 07/25/2009 CEZAR MANUFACTURING PROCESS TECHNICIAN, JIMI L 630 HYDATIDIFORM MOLE (MOLAR - NON-METASTATIC GTD) 07/25/2009 CEZAR MANUFACTURING PROCESS TECHNICIAN, JIMI L 630 HYDATIDIFORM MOLE (MOLAR - NON-METASTATIC GTD) 07/25/2009 DAYANA CHAPMAN DO K 630 HYDATIDIFORM MOLE (MOLAR - NON-METASTATIC GTD) 07/25/2009 DAYANA CHAPMAN DO K 630 HYDATIDIFORM MOLE (MOLAR - NON-METASTATIC GTD) 07/25/2009 DAYANA CHAPMAN DO K 630 HYDATIDIFORM MOLE (MOLAR - NON-METASTATIC GTD) 07/25/2009 MADL MANUFACTURING PROCESS TECHNICIAN, JIMI L 630 HYDATIDIFORM MOLE (MOLAR - NON-METASTATIC GTD) 07/25/2009 CHAPMAN DAYANA K 630 HYDATIDIFORM MOLE (MOLAR - NON-METASTATIC GTD) 07/25/2009 CHAPMAN DO, DAYANA K 630 HYDATIDIFORM MOLE (MOLAR - NON-METASTATIC GTD) 07/25/2009 MADL MANUFACTURING PROCESS TECHNICIAN, JIMI L 630 HYDATIDIFORM MOLE (MOLAR - NON-METASTATIC GTD) 07/25/2009 MADL MANUFACTURING PROCESS TECHNICIAN, JIMI L 630 HYDATIDIFORM MOLE (MOLAR - NON-METASTATIC GTD) 07/25/2009 MADL MANUFACTURING PROCESS TECHNICIAN, JIMI L 630 HYDATIDIFORM MOLE (MOLAR - NON-METASTATIC GTD) 07/25/2009 ALEXL MANUFACTURING PROCESS TECHNICIAN, JIMI L 630 HYDATIDIFORM MOLE (MOLAR - NON-METASTATIC GTD) 07/25/2009 ALEX MANUFACTURING PROCESS TECHNICIAN, JIMI L 630 HYDATIDIFORM MOLE (MOLAR - NON-METASTATIC GTD) 07/25/2009 MAD MANUFACTURING PROCESS TECHNICIAN, JIMI L 630 HYDATIDIFORM MOLE (MOLAR - NON-METASTATIC GTD) 07/25/2009 MAD MANUFACTURING PROCESS TECHNICIAN, JIMI L 630 HYDATIDIFORM MOLE (MOLAR - NON-METASTATIC GTD) 07/25/2009 MAD MANUFACTURING PROCESS TECHNICIAN, JIMI L 630 HYDATIDIFORM MOLE (MOLAR - NON-METASTATIC GTD) 07/25/2009 ALEX MANUFACTURING PROCESS TECHNICIAN, JIMI L 630 HYDATIDIFORM MOLE (MOLAR - NON-METASTATIC GTD) 07/25/2009 [facility] MANUFACTURING PROCESS TECHNICIAN, JIMI L 630 HYDATIDIFORM MOLE (MOLAR - NON-METASTATIC GTD) 07/25/2009 [facility] MANUFACTURING PROCESS TECHNICIAN, JIMI L 630 HYDATIDIFORM MOLE (MOLAR - NON-METASTATIC GTD) 07/25/2009 ALEXL MANUFACTURING PROCESS TECHNICIAN, JIMI L 630 HYDATIDIFORM MOLE (MOLAR - NON-METASTATIC GTD) 07/25/2009 ALEXL MANUFACTURING PROCESS TECHNICIAN, JIMI L 630 HYDATIDIFORM MOLE (MOLAR - NON-METASTATIC GTD) 07/25/2009 ALEX STEPHEN JIMI L 630 HYDATIDIFORM MOLE (MOLAR - NON-METASTATIC GTD) 07/25/2009 MADL MANUFACTURING PROCESS TECHNICIANJIMI 630 HYDATIDIFORM MOLE (MOLAR - NON-METASTATIC GTD) 07/25/2009 MADL MANUFACTURING PROCESS TECHNICIANJIMI 630 HYDATIDIFORM MOLE (MOLAR - NON-METASTATIC GTD) 11/28/2009 Ot 181 11/28/2009 Ot 462 11/28/2009 Ot 788.99 11/28/2009 Ot V58.11 01/04/2010 346.90 MIGRAINE UNSPECIFIED WITHOUT INTRACTABLE MIGRAINE 01/04/2010 DANAE RIVERA MD 346.90 MIGRAINE UNSPECIFIED WITHOUT INTRACTABLE MIGRAINE 01/04/2010 JAMIE DERAS MD 346.90 MIGRAINE UNSPECIFIED WITHOUT INTRACTABLE MIGRAINE 01/04/2010 CELESTE MARINO MD 346.90 MIGRAINE UNSPECIFIED WITHOUT INTRACTABLE MIGRAINE 01/04/2010 346.90 MIGRAINE UNSPECIFIED WITHOUT INTRACTABLE MIGRAINE 01/04/2010 JAMIE DERAS MD 346.90 MIGRAINE UNSPECIFIED WITHOUT INTRACTABLE MIGRAINE 01/04/2010 JAMIE DERAS MD 346.90 MIGRAINE UNSPECIFIED WITHOUT INTRACTABLE MIGRAINE 01/04/2010 JAMIE DERAS MD 346.90 MIGRAINE UNSPECIFIED WITHOUT INTRACTABLE MIGRAINE 01/04/2010 JAMIE DERAS MD 346.90 MIGRAINE UNSPECIFIED WITHOUT INTRACTABLE MIGRAINE 01/04/2010 346.90 MIGRAINE UNSPECIFIED WITHOUT INTRACTABLE MIGRAINE 01/04/2010 346.90 MIGRAINE UNSPECIFIED WITHOUT INTRACTABLE MIGRAINE 01/04/2010 346.90 MIGRAINE UNSPECIFIED WITHOUT INTRACTABLE MIGRAINE 01/04/2010 346.90 MIGRAINE UNSPECIFIED WITHOUT INTRACTABLE MIGRAINE 01/04/2010 346.90 MIGRAINE UNSPECIFIED WITHOUT INTRACTABLE MIGRAINE 01/04/2010 346.90 MIGRAINE UNSPECIFIED WITHOUT INTRACTABLE MIGRAINE 01/04/2010 346.90 MIGRAINE UNSPECIFIED WITHOUT INTRACTABLE MIGRAINE 01/04/2010 346.90 MIGRAINE UNSPECIFIED WITHOUT INTRACTABLE MIGRAINE 01/04/2010 346.90 MIGRAINE UNSPECIFIED WITHOUT INTRACTABLE MIGRAINE 01/04/2010 346.90 MIGRAINE UNSPECIFIED WITHOUT INTRACTABLE MIGRAINE 01/04/2010 346.90 MIGRAINE UNSPECIFIED WITHOUT INTRACTABLE MIGRAINE 01/04/2010 346.90 MIGRAINE UNSPECIFIED WITHOUT INTRACTABLE MIGRAINE 01/04/2010 JAMIE DERAS MD 346.90 MIGRAINE UNSPECIFIED WITHOUT INTRACTABLE MIGRAINE 01/04/2010 JAMIE DERAS MD 346.90 MIGRAINE UNSPECIFIED WITHOUT INTRACTABLE MIGRAINE 01/04/2010 JAMIE DERAS MD 346.90 MIGRAINE UNSPECIFIED WITHOUT INTRACTABLE MIGRAINE 01/04/2010 JUNIE MANUFACTURING PROCESS TECHNICIAN, PAT R 346.90 MIGRAINE UNSPECIFIED WITHOUT INTRACTABLE MIGRAINE 01/04/2010 JAMIE DERAS MD 346.90 MIGRAINE UNSPECIFIED WITHOUT INTRACTABLE MIGRAINE 01/04/2010 JAMIE DERAS MD 346.90 MIGRAINE UNSPECIFIED WITHOUT INTRACTABLE MIGRAINE 01/04/2010 CHAPMAN DO DAYANA K 346.90 MIGRAINE UNSPECIFIED WITHOUT INTRACTABLE MIGRAINE 01/04/2010 MADL MANUFACTURING PROCESS TECHNICIAN, JIMI L 346.90 MIGRAINE UNSPECIFIED WITHOUT INTRACTABLE MIGRAINE 01/04/2010 MADL MANUFACTURING PROCESS TECHNICIAN, JIMI L 346.90 MIGRAINE UNSPECIFIED WITHOUT INTRACTABLE MIGRAINE 01/04/2010 MADL MANUFACTURING PROCESS TECHNICIAN, JIMI L 346.90 MIGRAINE UNSPECIFIED WITHOUT INTRACTABLE MIGRAINE 01/04/2010 MADL MANUFACTURING PROCESS TECHNICIAN, JIMI L 346.90 MIGRAINE UNSPECIFIED WITHOUT INTRACTABLE MIGRAINE 01/04/2010 MADL MANUFACTURING PROCESS TECHNICIAN, JIMI L 346.90 MIGRAINE UNSPECIFIED WITHOUT INTRACTABLE MIGRAINE 01/04/2010 MADL MANUFACTURING PROCESS TECHNICIAN, JIMI L 346.90 MIGRAINE UNSPECIFIED WITHOUT INTRACTABLE MIGRAINE 01/04/2010 MADL MANUFACTURING PROCESS TECHNICIAN, JIMI L 346.90 MIGRAINE UNSPECIFIED WITHOUT INTRACTABLE MIGRAINE 01/04/2010 CHAPMAN DO DAYANA K 346.90 MIGRAINE UNSPECIFIED WITHOUT INTRACTABLE MIGRAINE 01/04/2010 CHAPMAN DO DAYANA K 346.90 MIGRAINE UNSPECIFIED WITHOUT INTRACTABLE MIGRAINE 01/04/2010 CHAPMAN DO DAYANA K 346.90 MIGRAINE UNSPECIFIED WITHOUT INTRACTABLE MIGRAINE 01/04/2010 MADL MANUFACTURING PROCESS TECHNICIAN, JIMI L 346.90 MIGRAINE UNSPECIFIED WITHOUT INTRACTABLE MIGRAINE 01/04/2010 CHAPMAN DO DAYANA K 346.90 MIGRAINE UNSPECIFIED WITHOUT INTRACTABLE MIGRAINE 01/04/2010 CHAPMAN DO DAYANA K 346.90 MIGRAINE UNSPECIFIED WITHOUT INTRACTABLE MIGRAINE 01/04/2010 MADL MANUFACTURING PROCESS TECHNICIAN, JIMI L 346.90 MIGRAINE UNSPECIFIED WITHOUT INTRACTABLE MIGRAINE 01/04/2010 MADL MANUFACTURING PROCESS TECHNICIAN, JIMI L 346.90 MIGRAINE UNSPECIFIED WITHOUT INTRACTABLE MIGRAINE 01/04/2010 MADL MANUFACTURING PROCESS TECHNICIAN, JIMI L 346.90 MIGRAINE UNSPECIFIED WITHOUT INTRACTABLE MIGRAINE 01/04/2010 MADL MANUFACTURING PROCESS TECHNICIAN, JIMI L 346.90 MIGRAINE UNSPECIFIED WITHOUT INTRACTABLE MIGRAINE 01/04/2010 MADL MANUFACTURING PROCESS TECHNICIAN, JIMI L 346.90 MIGRAINE UNSPECIFIED WITHOUT INTRACTABLE MIGRAINE 01/04/2010 MADL MANUFACTURING PROCESS TECHNICIAN, JIMI L 346.90 MIGRAINE UNSPECIFIED WITHOUT INTRACTABLE MIGRAINE 01/04/2010 MADL MANUFACTURING PROCESS TECHNICIAN, JIMI L 346.90 MIGRAINE UNSPECIFIED WITHOUT INTRACTABLE MIGRAINE 01/04/2010 MADL MANUFACTURING PROCESS TECHNICIAN, JIMI L 346.90 MIGRAINE UNSPECIFIED WITHOUT INTRACTABLE MIGRAINE 01/04/2010 MADL MANUFACTURING PROCESS TECHNICIAN, JIMI L 346.90 MIGRAINE UNSPECIFIED WITHOUT INTRACTABLE MIGRAINE 01/04/2010 MADL MANUFACTURING PROCESS TECHNICIAN, JIMI L 346.90 MIGRAINE UNSPECIFIED WITHOUT INTRACTABLE MIGRAINE 01/04/2010 MADL MANUFACTURING PROCESS TECHNICIAN, JIMI L 346.90 MIGRAINE UNSPECIFIED WITHOUT INTRACTABLE MIGRAINE 01/04/2010 MADL MANUFACTURING PROCESS TECHNICIAN, JIMI L 346.90 MIGRAINE UNSPECIFIED WITHOUT INTRACTABLE MIGRAINE 01/04/2010 MADL MANUFACTURING PROCESS TECHNICIAN, JIMI L 346.90 MIGRAINE UNSPECIFIED WITHOUT INTRACTABLE MIGRAINE 01/04/2010 MADL MANUFACTURING PROCESS TECHNICIAN, JIMI L 346.90 MIGRAINE UNSPECIFIED WITHOUT INTRACTABLE MIGRAINE 01/04/2010 MADL MANUFACTURING PROCESS TECHNICIAN, JIMI L 346.90 MIGRAINE UNSPECIFIED WITHOUT INTRACTABLE MIGRAINE 01/04/2010 MADL MANUFACTURING PROCESS TECHNICIAN, JIMI L 346.90 MIGRAINE UNSPECIFIED WITHOUT INTRACTABLE MIGRAINE 01/06/2010 Ot 784.0 01/09/2010 780.4 DIZZINESS AND VERTIGO 01/09/2010 784.0 HEADACHE 01/09/2010 787.02 NAUSEA ALONE 01/09/2010 DANAE RIVERA MD 780.4 DIZZINESS AND VERTIGO 01/09/2010 DANAE RIVERA MD 784.0 HEADACHE 01/09/2010 DANAE RIVERA MD 787.02 NAUSEA ALONE 01/09/2010 JAMIE DERAS MD 780.4 DIZZINESS AND VERTIGO 01/09/2010 JAMIE DERAS MD 784.0 HEADACHE 01/09/2010 JAMIE DERAS MD 787.02 NAUSEA ALONE 01/09/2010 CELESTE MARINO MD 780.4 DIZZINESS AND VERTIGO 01/09/2010 CELESTE MARINO MD 784.0 HEADACHE 01/09/2010 CELESTE MARINO MD 787.02 NAUSEA ALONE 01/09/2010 780.4 DIZZINESS AND VERTIGO 01/09/2010 784.0 HEADACHE 01/09/2010 787.02 NAUSEA ALONE 01/09/2010 JAMIE DERAS MD 780.4 DIZZINESS AND VERTIGO 01/09/2010 JAMIE DERAS MD 784.0 HEADACHE 01/09/2010 JAMIE DERAS MD 787.02 NAUSEA ALONE 01/09/2010 JAMIE DERAS MD 780.4 DIZZINESS AND VERTIGO 01/09/2010 JAMIE DERAS MD 784.0 HEADACHE 01/09/2010 JAMIE DERAS MD 787.02 NAUSEA ALONE 01/09/2010 JAMIE DERAS MD 780.4 DIZZINESS AND VERTIGO 01/09/2010 JAMIE DERAS MD 784.0 HEADACHE 01/09/2010 JAMIE DERAS MD 787.02 NAUSEA ALONE 01/09/2010 JAMIE DERAS MD 780.4 DIZZINESS AND VERTIGO 01/09/2010 JAMIE DERAS MD 784.0 HEADACHE 01/09/2010 JAMIE DERAS MD 787.02 NAUSEA ALONE 01/09/2010 780.4 DIZZINESS AND VERTIGO 01/09/2010 784.0 HEADACHE 01/09/2010 787.02 NAUSEA ALONE 01/09/2010 780.4 DIZZINESS AND VERTIGO 01/09/2010 784.0 HEADACHE 01/09/2010 787.02 NAUSEA ALONE 01/09/2010 780.4 DIZZINESS AND VERTIGO 01/09/2010 784.0 HEADACHE 01/09/2010 787.02 NAUSEA ALONE 01/09/2010 780.4 DIZZINESS AND VERTIGO 01/09/2010 784.0 HEADACHE 01/09/2010 787.02 NAUSEA ALONE 01/09/2010 780.4 DIZZINESS AND VERTIGO 01/09/2010 784.0 HEADACHE 01/09/2010 787.02 NAUSEA ALONE 01/09/2010 780.4 DIZZINESS AND VERTIGO 01/09/2010 784.0 HEADACHE 01/09/2010 787.02 NAUSEA ALONE 01/09/2010 780.4 DIZZINESS AND VERTIGO 01/09/2010 784.0 HEADACHE 01/09/2010 787.02 NAUSEA ALONE 01/09/2010 780.4 DIZZINESS AND VERTIGO 01/09/2010 784.0 HEADACHE 01/09/2010 787.02 NAUSEA ALONE 01/09/2010 780.4 DIZZINESS AND VERTIGO 01/09/2010 784.0 HEADACHE 01/09/2010 787.02 NAUSEA ALONE 01/09/2010 780.4 DIZZINESS AND VERTIGO 01/09/2010 784.0 HEADACHE 01/09/2010 787.02 NAUSEA ALONE 01/09/2010 780.4 DIZZINESS AND VERTIGO 01/09/2010 784.0 HEADACHE 01/09/2010 787.02 NAUSEA ALONE 01/09/2010 780.4 DIZZINESS AND VERTIGO 01/09/2010 784.0 HEADACHE 01/09/2010 787.02 NAUSEA ALONE 01/09/2010 JAMIE DERAS MD 780.4 DIZZINESS AND VERTIGO 01/09/2010 JAMIE DERAS MD 784.0 HEADACHE 01/09/2010 JAMIE DERAS MD 787.02 NAUSEA ALONE 01/09/2010 JAMIE DERAS MD 780.4 DIZZINESS AND VERTIGO 01/09/2010 JAMIE DREAS MD 784.0 HEADACHE 01/09/2010 JAMIE DERAS MD 787.02 NAUSEA ALONE 01/09/2010 JAMIE DERAS MD 780.4 DIZZINESS AND VERTIGO 01/09/2010 JAMIE DERAS MD 784.0 HEADACHE 01/09/2010 JAMIE DERAS MD 787.02 NAUSEA ALONE 01/09/2010 JUNIE MITCHELL, PAT R 780.4 DIZZINESS AND VERTIGO 01/09/2010 JUNIE MITCHELL, PAT R 784.0 HEADACHE 01/09/2010 JUNIE MITCHELL, PAT R 787.02 NAUSEA ALONE 01/09/2010 JAMIE DERAS MD 780.4 DIZZINESS AND VERTIGO 01/09/2010 JAMIE DERAS MD 784.0 HEADACHE 01/09/2010 JAMIE DERAS MD 787.02 NAUSEA ALONE 01/09/2010 JAMIE DERAS MD 780.4 DIZZINESS AND VERTIGO 01/09/2010 JAMIE DERAS MD 784.0 HEADACHE 01/09/2010 JAMIE DERAS MD 787.02 NAUSEA ALONE 01/09/2010 CHAPMAN DO, DAYANA K 780.4 DIZZINESS AND VERTIGO 01/09/2010 CHAPMAN DO DAYANA K 784.0 HEADACHE 01/09/2010 CHAPMAN DO, DAYANA K 787.02 NAUSEA ALONE 01/09/2010 [employer] MANUFACTURING PROCESS TECHNICIAN, JIMI L 780.4 DIZZINESS AND VERTIGO 01/09/2010 MADL MANUFACTURING PROCESS TECHNICIAN, JIMI L 784.0 HEADACHE 01/09/2010 MADL MANUFACTURING PROCESS TECHNICIAN, JIMI L 787.02 NAUSEA ALONE 01/09/2010 MADL MANUFACTURING PROCESS TECHNICIAN, JIMI L 780.4 DIZZINESS AND VERTIGO 01/09/2010 MADL MANUFACTURING PROCESS TECHNICIAN, JIMI L 784.0 HEADACHE 01/09/2010 MADL MANUFACTURING PROCESS TECHNICIAN, JIMI L 787.02 NAUSEA ALONE 01/09/2010 MADL MANUFACTURING PROCESS TECHNICIAN, JIMI L 780.4 DIZZINESS AND VERTIGO 01/09/2010 MADL MANUFACTURING PROCESS TECHNICIAN, JIMI L 784.0 HEADACHE 01/09/2010 MADL MANUFACTURING PROCESS TECHNICIAN, JIMI L 787.02 NAUSEA ALONE 01/09/2010 MADL MANUFACTURING PROCESS TECHNICIAN, JIMI L 780.4 DIZZINESS AND VERTIGO 01/09/2010 MADL MANUFACTURING PROCESS TECHNICIAN, JIMI L 784.0 HEADACHE 01/09/2010 MADL MANUFACTURING PROCESS TECHNICIAN, JIMI L 787.02 NAUSEA ALONE 01/09/2010 MADL MANUFACTURING PROCESS TECHNICIAN, JIMI L 780.4 DIZZINESS AND VERTIGO 01/09/2010 MADL MANUFACTURING PROCESS TECHNICIAN, JIMI L 784.0 HEADACHE 01/09/2010 MADL MANUFACTURING PROCESS TECHNICIAN, JIMI L 787.02 NAUSEA ALONE 01/09/2010 MADL MANUFACTURING PROCESS TECHNICIAN, JIMI L 780.4 DIZZINESS AND VERTIGO 01/09/2010 MADL MANUFACTURING PROCESS TECHNICIAN, JIMI L 784.0 HEADACHE 01/09/2010 MADL MANUFACTURING PROCESS TECHNICIAN, JIMI L 787.02 NAUSEA ALONE 01/09/2010 MADL MANUFACTURING PROCESS TECHNICIAN, JIMI L 780.4 DIZZINESS AND VERTIGO 01/09/2010 MADL MANUFACTURING PROCESS TECHNICIAN, JIMI L 784.0 HEADACHE 01/09/2010 MADL MANUFACTURING PROCESS TECHNICIAN, JIMI L 787.02 NAUSEA ALONE 01/09/2010 CHAPMAN DO, DAYANA K 780.4 DIZZINESS AND VERTIGO 01/09/2010 CHAPMAN DO, DAYANA K 784.0 HEADACHE 01/09/2010 CHAPMAN DO, DAYANA K 787.02 NAUSEA ALONE 01/09/2010 CHAPMAN DO, DAYANA K 780.4 DIZZINESS AND VERTIGO 01/09/2010 CHAPMAN DO, DAYANA K 784.0 HEADACHE 01/09/2010 CHAPMAN DO, DAYANA K 787.02 NAUSEA ALONE 01/09/2010 CHAPMAN DO, DAYANA K 780.4 DIZZINESS AND VERTIGO 01/09/2010 CHAPMAN DO, DAYANA K 784.0 HEADACHE 01/09/2010 CHAPMAN DO, DAYANA K 787.02 NAUSEA ALONE 01/09/2010 MADL MANUFACTURING PROCESS TECHNICIAN, JIMI L 780.4 DIZZINESS AND VERTIGO 01/09/2010 MADL MANUFACTURING PROCESS TECHNICIAN, JIMI L 784.0 HEADACHE 01/09/2010 MADL MANUFACTURING PROCESS TECHNICIAN, JIMI L 787.02 NAUSEA ALONE 01/09/2010 CHAPMAN DO, DAYANA K 780.4 DIZZINESS AND VERTIGO 01/09/2010 CHAPMAN DO, DAYANA K 784.0 HEADACHE 01/09/2010 CHAPMAN DO, DAYANA K 787.02 NAUSEA ALONE 01/09/2010 CHAPMAN DO, DAYANA K 780.4 DIZZINESS AND VERTIGO 01/09/2010 CHAPMAN DO, DAYANA K 784.0 HEADACHE 01/09/2010 CHAPMAN DO, DAYANA K 787.02 NAUSEA ALONE 01/09/2010 MADL MANUFACTURING PROCESS TECHNICIAN, JIMI L 780.4 DIZZINESS AND VERTIGO 01/09/2010 MADL MANUFACTURING PROCESS TECHNICIAN, JIMI L 784.0 HEADACHE 01/09/2010 MADL MANUFACTURING PROCESS TECHNICIAN, JIMI L 787.02 NAUSEA ALONE 01/09/2010 MADL MANUFACTURING PROCESS TECHNICIAN, JIMI L 780.4 DIZZINESS AND VERTIGO 01/09/2010 MADL MANUFACTURING PROCESS TECHNICIAN, JIMI L 784.0 HEADACHE 01/09/2010 MADL MANUFACTURING PROCESS TECHNICIAN, JIMI L 787.02 NAUSEA ALONE 01/09/2010 MADL MANUFACTURING PROCESS TECHNICIAN, JIMI L 780.4 DIZZINESS AND VERTIGO 01/09/2010 MADL MANUFACTURING PROCESS TECHNICIAN, JIMI L 784.0 HEADACHE 01/09/2010 MADL MANUFACTURING PROCESS TECHNICIAN, JIMI L 787.02 NAUSEA ALONE 01/09/2010 MADL MANUFACTURING PROCESS TECHNICIAN, JIMI L 780.4 DIZZINESS AND VERTIGO 01/09/2010 MADL MANUFACTURING PROCESS TECHNICIAN, JIMI L 784.0 HEADACHE 01/09/2010 MADL MANUFACTURING PROCESS TECHNICIAN, JIMI L 787.02 NAUSEA ALONE 01/09/2010 MADL MANUFACTURING PROCESS TECHNICIAN, JIMI L 780.4 DIZZINESS AND VERTIGO 01/09/2010 MADL MANUFACTURING PROCESS TECHNICIAN, JIMI L 784.0 HEADACHE 01/09/2010 MADL MANUFACTURING PROCESS TECHNICIAN, JIMI L 787.02 NAUSEA ALONE 01/09/2010 MADL MANUFACTURING PROCESS TECHNICIAN, JIMI L 780.4 DIZZINESS AND VERTIGO 01/09/2010 MADL MANUFACTURING PROCESS TECHNICIAN, JIMI L 784.0 HEADACHE 01/09/2010 MADL MANUFACTURING PROCESS TECHNICIAN, JIMI L 787.02 NAUSEA ALONE 01/09/2010 MADL MANUFACTURING PROCESS TECHNICIAN, JIMI L 780.4 DIZZINESS AND VERTIGO 01/09/2010 MADL MANUFACTURING PROCESS TECHNICIAN, JIMI L 784.0 HEADACHE 01/09/2010 MADL MANUFACTURING PROCESS TECHNICIAN, JIMI L 787.02 NAUSEA ALONE 01/09/2010 MADL MANUFACTURING PROCESS TECHNICIAN, JIMI L 780.4 DIZZINESS AND VERTIGO 01/09/2010 MADL MANUFACTURING PROCESS TECHNICIAN, JIMI L 784.0 HEADACHE 01/09/2010 MADL MANUFACTURING PROCESS TECHNICIAN, JIMI L 787.02 NAUSEA ALONE 01/09/2010 MADL MANUFACTURING PROCESS TECHNICIAN, JIMI L 780.4 DIZZINESS AND VERTIGO 01/09/2010 MADL MANUFACTURING PROCESS TECHNICIAN, JIMI L 784.0 HEADACHE 01/09/2010 MADL MANUFACTURING PROCESS TECHNICIAN, JIMI L 787.02 NAUSEA ALONE 01/09/2010 MADL MANUFACTURING PROCESS TECHNICIAN, JIMI L 780.4 DIZZINESS AND VERTIGO 01/09/2010 MADL MANUFACTURING PROCESS TECHNICIAN, JIMI L 784.0 HEADACHE 01/09/2010 MADL MANUFACTURING PROCESS TECHNICIAN, JIMI L 787.02 NAUSEA ALONE 01/09/2010 MADL MANUFACTURING PROCESS TECHNICIAN, JIMI L 780.4 DIZZINESS AND VERTIGO 01/09/2010 MADL MANUFACTURING PROCESS TECHNICIAN, JIMI L 784.0 HEADACHE 01/09/2010 MADL MANUFACTURING PROCESS TECHNICIAN, JIMI L 787.02 NAUSEA ALONE 01/09/2010 MADL MANUFACTURING PROCESS TECHNICIAN, JIMI L 780.4 DIZZINESS AND VERTIGO 01/09/2010 MADL MANUFACTURING PROCESS TECHNICIAN, JIMI L 784.0 HEADACHE 01/09/2010 MADL MANUFACTURING PROCESS TECHNICIAN, JIMI L 787.02 NAUSEA ALONE 01/09/2010 MADL MANUFACTURING PROCESS TECHNICIAN, JIMI L 780.4 DIZZINESS AND VERTIGO 01/09/2010 MADL MANUFACTURING PROCESS TECHNICIAN, JIMI L 784.0 HEADACHE 01/09/2010 MADL MANUFACTURING PROCESS TECHNICIAN, JIMI L 787.02 NAUSEA ALONE 01/09/2010 MADL MANUFACTURING PROCESS TECHNICIAN, JIMI L 780.4 DIZZINESS AND VERTIGO 01/09/2010 MADL MANUFACTURING PROCESS TECHNICIAN, JIMI L 784.0 HEADACHE 01/09/2010 MADL MANUFACTURING PROCESS TECHNICIAN, JIMI L 787.02 NAUSEA ALONE 01/09/2010 MADL MANUFACTURING PROCESS TECHNICIAN, JIMI L 780.4 DIZZINESS AND VERTIGO 01/09/2010 MADL MANUFACTURING PROCESS TECHNICIAN, JIMI L 784.0 HEADACHE 01/09/2010 MADL MANUFACTURING PROCESS TECHNICIAN, JIMI L 787.02 NAUSEA ALONE 01/09/2010 MADL MANUFACTURING PROCESS TECHNICIAN, JIMI L 780.4 DIZZINESS AND VERTIGO 01/09/2010 ALEXL MANUFACTURING PROCESS TECHNICIAN, JIMI L 784.0 HEADACHE 01/09/2010 MADL MANUFACTURING PROCESS TECHNICIAN, JIMI L 787.02 NAUSEA ALONE 01/15/2010 Ot 041.3 01/15/2010 Ot 348.2 01/15/2010 Ot 368.2 01/15/2010 Ot 368.8 01/15/2010 Ot 599.0 01/15/2010 Ot 784.0 01/15/2010 Ot 790.6 01/15/2010 Ot E932.2 01/15/2010 Ot V10.44 01/15/2010 Ot V13.8 01/15/2010 Ot V87.41 01/23/2010 348.2 IDIOPATHIC INTRACRANIAL HYPERTENSION (PSEUDOTUMOR CEREBRI) 01/23/2010 377.01 PAPILLEDEMA ASSOCIATED WITH INCREASED INTRACRANIAL PRESSURE 01/23/2010 DANAE RIVERA MD 348.2 IDIOPATHIC INTRACRANIAL HYPERTENSION (PSEUDOTUMOR CEREBRI) 01/23/2010 DANAE RIVERA MD 377.01 PAPILLEDEMA ASSOCIATED WITH INCREASED INTRACRANIAL PRESSURE 01/23/2010 JAMIE DERAS MD 348.2 IDIOPATHIC INTRACRANIAL HYPERTENSION (PSEUDOTUMOR CEREBRI) 01/23/2010 JAMIE DERAS MD 377.01 PAPILLEDEMA ASSOCIATED WITH INCREASED INTRACRANIAL PRESSURE 01/23/2010 CELESTE MARINO MD 348.2 IDIOPATHIC INTRACRANIAL HYPERTENSION (PSEUDOTUMOR CEREBRI) 01/23/2010 CELESTE MARINO MD 377.01 PAPILLEDEMA ASSOCIATED WITH INCREASED INTRACRANIAL PRESSURE 01/23/2010 348.2 IDIOPATHIC INTRACRANIAL HYPERTENSION (PSEUDOTUMOR CEREBRI) 01/23/2010 377.01 PAPILLEDEMA ASSOCIATED WITH INCREASED INTRACRANIAL PRESSURE 01/23/2010 JAMIE DERAS MD 348.2 IDIOPATHIC INTRACRANIAL HYPERTENSION (PSEUDOTUMOR CEREBRI) 01/23/2010 JAMIE DERAS MD 377.01 PAPILLEDEMA ASSOCIATED WITH INCREASED INTRACRANIAL PRESSURE 01/23/2010 JAMIE DERAS MD 348.2 IDIOPATHIC INTRACRANIAL HYPERTENSION (PSEUDOTUMOR CEREBRI) 01/23/2010 JAMIE DERAS MD 377.01 PAPILLEDEMA ASSOCIATED WITH INCREASED INTRACRANIAL PRESSURE 01/23/2010 JAMIE DERAS MD 348.2 IDIOPATHIC INTRACRANIAL HYPERTENSION (PSEUDOTUMOR CEREBRI) 01/23/2010 JAMIE DERAS MD 377.01 PAPILLEDEMA ASSOCIATED WITH INCREASED INTRACRANIAL PRESSURE 01/23/2010 JAMIE DERAS MD 348.2 IDIOPATHIC INTRACRANIAL HYPERTENSION (PSEUDOTUMOR CEREBRI) 01/23/2010 JAMIE DERAS MD 377.01 PAPILLEDEMA ASSOCIATED WITH INCREASED INTRACRANIAL PRESSURE 01/23/2010 348.2 IDIOPATHIC INTRACRANIAL HYPERTENSION (PSEUDOTUMOR CEREBRI) 01/23/2010 377.01 PAPILLEDEMA ASSOCIATED WITH INCREASED INTRACRANIAL PRESSURE 01/23/2010 348.2 IDIOPATHIC INTRACRANIAL HYPERTENSION (PSEUDOTUMOR CEREBRI) 01/23/2010 377.01 PAPILLEDEMA ASSOCIATED WITH INCREASED INTRACRANIAL PRESSURE 01/23/2010 348.2 IDIOPATHIC INTRACRANIAL HYPERTENSION (PSEUDOTUMOR CEREBRI) 01/23/2010 377.01 PAPILLEDEMA ASSOCIATED WITH INCREASED INTRACRANIAL PRESSURE 01/23/2010 348.2 IDIOPATHIC INTRACRANIAL HYPERTENSION (PSEUDOTUMOR CEREBRI) 01/23/2010 377.01 PAPILLEDEMA ASSOCIATED WITH INCREASED INTRACRANIAL PRESSURE 01/23/2010 348.2 IDIOPATHIC INTRACRANIAL HYPERTENSION (PSEUDOTUMOR CEREBRI) 01/23/2010 377.01 PAPILLEDEMA ASSOCIATED WITH INCREASED INTRACRANIAL PRESSURE 01/23/2010 348.2 IDIOPATHIC INTRACRANIAL HYPERTENSION (PSEUDOTUMOR CEREBRI) 01/23/2010 377.01 PAPILLEDEMA ASSOCIATED WITH INCREASED INTRACRANIAL PRESSURE 01/23/2010 348.2 IDIOPATHIC INTRACRANIAL HYPERTENSION (PSEUDOTUMOR CEREBRI) 01/23/2010 377.01 PAPILLEDEMA ASSOCIATED WITH INCREASED INTRACRANIAL PRESSURE 01/23/2010 348.2 IDIOPATHIC INTRACRANIAL HYPERTENSION (PSEUDOTUMOR CEREBRI) 01/23/2010 377.01 PAPILLEDEMA ASSOCIATED WITH INCREASED INTRACRANIAL PRESSURE 01/23/2010 348.2 IDIOPATHIC INTRACRANIAL HYPERTENSION (PSEUDOTUMOR CEREBRI) 01/23/2010 377.01 PAPILLEDEMA ASSOCIATED WITH INCREASED INTRACRANIAL PRESSURE 01/23/2010 348.2 IDIOPATHIC INTRACRANIAL HYPERTENSION (PSEUDOTUMOR CEREBRI) 01/23/2010 377.01 PAPILLEDEMA ASSOCIATED WITH INCREASED INTRACRANIAL PRESSURE 01/23/2010 348.2 IDIOPATHIC INTRACRANIAL HYPERTENSION (PSEUDOTUMOR CEREBRI) 01/23/2010 377.01 PAPILLEDEMA ASSOCIATED WITH INCREASED INTRACRANIAL PRESSURE 01/23/2010 348.2 IDIOPATHIC INTRACRANIAL HYPERTENSION (PSEUDOTUMOR CEREBRI) 01/23/2010 377.01 PAPILLEDEMA ASSOCIATED WITH INCREASED INTRACRANIAL PRESSURE 01/23/2010 JAMIE DERAS MD 348.2 IDIOPATHIC INTRACRANIAL HYPERTENSION (PSEUDOTUMOR CEREBRI) 01/23/2010 JAMIE DERAS MD 377.01 PAPILLEDEMA ASSOCIATED WITH INCREASED INTRACRANIAL PRESSURE 01/23/2010 JAMIE DERAS MD 348.2 IDIOPATHIC INTRACRANIAL HYPERTENSION (PSEUDOTUMOR CEREBRI) 01/23/2010 JAMIE DERAS MD 377.01 PAPILLEDEMA ASSOCIATED WITH INCREASED INTRACRANIAL PRESSURE 01/23/2010 JAMIE DERAS MD 348.2 IDIOPATHIC INTRACRANIAL HYPERTENSION (PSEUDOTUMOR CEREBRI) 01/23/2010 JAMIE DERAS MD 377.01 PAPILLEDEMA ASSOCIATED WITH INCREASED INTRACRANIAL PRESSURE 01/23/2010 DAT ZAMAN APRNINA R 348.2 IDIOPATHIC INTRACRANIAL HYPERTENSION (PSEUDOTUMOR CEREBRI) 01/23/2010 PAT ZAMAN APRN R 377.01 PAPILLEDEMA ASSOCIATED WITH INCREASED INTRACRANIAL PRESSURE 01/23/2010 JAMIE DERAS MD 348.2 IDIOPATHIC INTRACRANIAL HYPERTENSION (PSEUDOTUMOR CEREBRI) 01/23/2010 JAMIE DERAS MD 377.01 PAPILLEDEMA ASSOCIATED WITH INCREASED INTRACRANIAL PRESSURE 01/23/2010 JAMIE DERAS MD 348.2 IDIOPATHIC INTRACRANIAL HYPERTENSION (PSEUDOTUMOR CEREBRI) 01/23/2010 JAMIE DERAS MD 377.01 PAPILLEDEMA ASSOCIATED WITH INCREASED INTRACRANIAL PRESSURE 01/23/2010 DAYANA CAHPMAN DO K 348.2 IDIOPATHIC INTRACRANIAL HYPERTENSION (PSEUDOTUMOR CEREBRI) 01/23/2010 CHAPMAN DO, DAYANA K 377.01 PAPILLEDEMA ASSOCIATED WITH INCREASED INTRACRANIAL PRESSURE 01/23/2010 MADL MANUFACTURING PROCESS TECHNICIAN, JIMI L 348.2 IDIOPATHIC INTRACRANIAL HYPERTENSION (PSEUDOTUMOR CEREBRI) 01/23/2010 MADL MANUFACTURING PROCESS TECHNICIAN, JIMI L 377.01 PAPILLEDEMA ASSOCIATED WITH INCREASED INTRACRANIAL PRESSURE 01/23/2010 MADL MANUFACTURING PROCESS TECHNICIAN, JIMI L 348.2 IDIOPATHIC INTRACRANIAL HYPERTENSION (PSEUDOTUMOR CEREBRI) 01/23/2010 MADL MANUFACTURING PROCESS TECHNICIAN, JIMI L 377.01 PAPILLEDEMA ASSOCIATED WITH INCREASED INTRACRANIAL PRESSURE 01/23/2010 MADL MANUFACTURING PROCESS TECHNICIAN, JIMI L 348.2 IDIOPATHIC INTRACRANIAL HYPERTENSION (PSEUDOTUMOR CEREBRI) 01/23/2010 MADL MANUFACTURING PROCESS TECHNICIAN, JIMI L 377.01 PAPILLEDEMA ASSOCIATED WITH INCREASED INTRACRANIAL PRESSURE 01/23/2010 MADL MANUFACTURING PROCESS TECHNICIAN, JIMI L 348.2 IDIOPATHIC INTRACRANIAL HYPERTENSION (PSEUDOTUMOR CEREBRI) 01/23/2010 MADL MANUFACTURING PROCESS TECHNICIAN, JIMI L 377.01 PAPILLEDEMA ASSOCIATED WITH INCREASED INTRACRANIAL PRESSURE 01/23/2010 MADL MANUFACTURING PROCESS TECHNICIAN, JIMI L 348.2 IDIOPATHIC INTRACRANIAL HYPERTENSION (PSEUDOTUMOR CEREBRI) 01/23/2010 MADL MANUFACTURING PROCESS TECHNICIAN, JIMI L 377.01 PAPILLEDEMA ASSOCIATED WITH INCREASED INTRACRANIAL PRESSURE 01/23/2010 MADL MANUFACTURING PROCESS TECHNICIAN, JIMI L 348.2 IDIOPATHIC INTRACRANIAL HYPERTENSION (PSEUDOTUMOR CEREBRI) 01/23/2010 MADL MANUFACTURING PROCESS TECHNICIAN, JIMI L 377.01 PAPILLEDEMA ASSOCIATED WITH INCREASED INTRACRANIAL PRESSURE 01/23/2010 MADL MANUFACTURING PROCESS TECHNICIAN, JIMI L 348.2 IDIOPATHIC INTRACRANIAL HYPERTENSION (PSEUDOTUMOR CEREBRI) 01/23/2010 MADL MANUFACTURING PROCESS TECHNICIAN, JIMI L 377.01 PAPILLEDEMA ASSOCIATED WITH INCREASED INTRACRANIAL PRESSURE 01/23/2010 CHAPMAN DO, DAYANA K 348.2 IDIOPATHIC INTRACRANIAL HYPERTENSION (PSEUDOTUMOR CEREBRI) 01/23/2010 CHAPMAN DO, DAYANA K 377.01 PAPILLEDEMA ASSOCIATED WITH INCREASED INTRACRANIAL PRESSURE 01/23/2010 CHAPMAN DO, DAYANA K 348.2 IDIOPATHIC INTRACRANIAL HYPERTENSION (PSEUDOTUMOR CEREBRI) 01/23/2010 CHAPMAN DO, DAYANA K 377.01 PAPILLEDEMA ASSOCIATED WITH INCREASED INTRACRANIAL PRESSURE 01/23/2010 CHAPMAN DO, DAYANA K 348.2 IDIOPATHIC INTRACRANIAL HYPERTENSION (PSEUDOTUMOR CEREBRI) 01/23/2010 CHAPMAN DO, DAYANA K 377.01 PAPILLEDEMA ASSOCIATED WITH INCREASED INTRACRANIAL PRESSURE 01/23/2010 MADL MANUFACTURING PROCESS TECHNICIAN, JIMI L 348.2 IDIOPATHIC INTRACRANIAL HYPERTENSION (PSEUDOTUMOR CEREBRI) 01/23/2010 MADL MANUFACTURING PROCESS TECHNICIAN, JIMI L 377.01 PAPILLEDEMA ASSOCIATED WITH INCREASED INTRACRANIAL PRESSURE 01/23/2010 CHAPMAN DO, DAYANA K 348.2 IDIOPATHIC INTRACRANIAL HYPERTENSION (PSEUDOTUMOR CEREBRI) 01/23/2010 CHAPMAN DO, DAYANA K 377.01 PAPILLEDEMA ASSOCIATED WITH INCREASED INTRACRANIAL PRESSURE 01/23/2010 CHAPMAN DO, DAYANA K 348.2 IDIOPATHIC INTRACRANIAL HYPERTENSION (PSEUDOTUMOR CEREBRI) 01/23/2010 CHAPMAN DO, DAYANA K 377.01 PAPILLEDEMA ASSOCIATED WITH INCREASED INTRACRANIAL PRESSURE 01/23/2010 MADL MANUFACTURING PROCESS TECHNICIAN, JIMI L 348.2 IDIOPATHIC INTRACRANIAL HYPERTENSION (PSEUDOTUMOR CEREBRI) 01/23/2010 MADL MANUFACTURING PROCESS TECHNICIAN, JIMI L 377.01 PAPILLEDEMA ASSOCIATED WITH INCREASED INTRACRANIAL PRESSURE 01/23/2010 MADL MANUFACTURING PROCESS TECHNICIAN, JIMI L 348.2 IDIOPATHIC INTRACRANIAL HYPERTENSION (PSEUDOTUMOR CEREBRI) 01/23/2010 MADL MANUFACTURING PROCESS TECHNICIAN, JIMI L 377.01 PAPILLEDEMA ASSOCIATED WITH INCREASED INTRACRANIAL PRESSURE 01/23/2010 MADL MANUFACTURING PROCESS TECHNICIAN, JIMI L 348.2 IDIOPATHIC INTRACRANIAL HYPERTENSION (PSEUDOTUMOR CEREBRI) 01/23/2010 MADL MANUFACTURING PROCESS TECHNICIAN, JIMI L 377.01 PAPILLEDEMA ASSOCIATED WITH INCREASED INTRACRANIAL PRESSURE 01/23/2010 MADL MANUFACTURING PROCESS TECHNICIAN, JIMI L 348.2 IDIOPATHIC INTRACRANIAL HYPERTENSION (PSEUDOTUMOR CEREBRI) 01/23/2010 MADL MANUFACTURING PROCESS TECHNICIAN, JIMI L 377.01 PAPILLEDEMA ASSOCIATED WITH INCREASED INTRACRANIAL PRESSURE 01/23/2010 MADL MANUFACTURING PROCESS TECHNICIAN, JIMI L 348.2 IDIOPATHIC INTRACRANIAL HYPERTENSION (PSEUDOTUMOR CEREBRI) 01/23/2010 MADL MANUFACTURING PROCESS TECHNICIAN, JIMI L 377.01 PAPILLEDEMA ASSOCIATED WITH INCREASED INTRACRANIAL PRESSURE 01/23/2010 MADL MANUFACTURING PROCESS TECHNICIAN, JIMI L 348.2 IDIOPATHIC INTRACRANIAL HYPERTENSION (PSEUDOTUMOR CEREBRI) 01/23/2010 MADL MANUFACTURING PROCESS TECHNICIAN, JIMI L 377.01 PAPILLEDEMA ASSOCIATED WITH INCREASED INTRACRANIAL PRESSURE 01/23/2010 MADL MANUFACTURING PROCESS TECHNICIAN, JIMI L 348.2 IDIOPATHIC INTRACRANIAL HYPERTENSION (PSEUDOTUMOR CEREBRI) 01/23/2010 MADL MANUFACTURING PROCESS TECHNICIAN, JIMI L 377.01 PAPILLEDEMA ASSOCIATED WITH INCREASED INTRACRANIAL PRESSURE 01/23/2010 MADL MANUFACTURING PROCESS TECHNICIAN, JIMI L 348.2 IDIOPATHIC INTRACRANIAL HYPERTENSION (PSEUDOTUMOR CEREBRI) 01/23/2010 MADL MANUFACTURING PROCESS TECHNICIAN, JIMI L 377.01 PAPILLEDEMA ASSOCIATED WITH INCREASED INTRACRANIAL PRESSURE 01/23/2010 MADL MANUFACTURING PROCESS TECHNICIAN, JIMI L 348.2 IDIOPATHIC INTRACRANIAL HYPERTENSION (PSEUDOTUMOR CEREBRI) 01/23/2010 MADL MANUFACTURING PROCESS TECHNICIAN, JIMI L 377.01 PAPILLEDEMA ASSOCIATED WITH INCREASED INTRACRANIAL PRESSURE 01/23/2010 MADL MANUFACTURING PROCESS TECHNICIAN, JIMI L 348.2 IDIOPATHIC INTRACRANIAL HYPERTENSION (PSEUDOTUMOR CEREBRI) 01/23/2010 MADL MANUFACTURING PROCESS TECHNICIAN, JIMI L 377.01 PAPILLEDEMA ASSOCIATED WITH INCREASED INTRACRANIAL PRESSURE 01/23/2010 MADL MANUFACTURING PROCESS TECHNICIAN, JIMI L 348.2 IDIOPATHIC INTRACRANIAL HYPERTENSION (PSEUDOTUMOR CEREBRI) 01/23/2010 MADL MANUFACTURING PROCESS TECHNICIAN, JIMI L 377.01 PAPILLEDEMA ASSOCIATED WITH INCREASED INTRACRANIAL PRESSURE 01/23/2010 MADL MANUFACTURING PROCESS TECHNICIAN, JIMI L 348.2 IDIOPATHIC INTRACRANIAL HYPERTENSION (PSEUDOTUMOR CEREBRI) 01/23/2010 MADL MANUFACTURING PROCESS TECHNICIAN, JIMI L 377.01 PAPILLEDEMA ASSOCIATED WITH INCREASED INTRACRANIAL PRESSURE 01/23/2010 MADL MANUFACTURING PROCESS TECHNICIAN, JIMI L 348.2 IDIOPATHIC INTRACRANIAL HYPERTENSION (PSEUDOTUMOR CEREBRI) 01/23/2010 MADL MANUFACTURING PROCESS TECHNICIAN, JIMI L 377.01 PAPILLEDEMA ASSOCIATED WITH INCREASED INTRACRANIAL PRESSURE 01/23/2010 MADL MANUFACTURING PROCESS TECHNICIAN, JIMI L 348.2 IDIOPATHIC INTRACRANIAL HYPERTENSION (PSEUDOTUMOR CEREBRI) 01/23/2010 MADL MANUFACTURING PROCESS TECHNICIAN, JIMI L 377.01 PAPILLEDEMA ASSOCIATED WITH INCREASED INTRACRANIAL PRESSURE 01/23/2010 MADL MANUFACTURING PROCESS TECHNICIAN, JIMI L 348.2 IDIOPATHIC INTRACRANIAL HYPERTENSION (PSEUDOTUMOR CEREBRI) 01/23/2010 MADL MANUFACTURING PROCESS TECHNICIAN, JIMI L 377.01 PAPILLEDEMA ASSOCIATED WITH INCREASED INTRACRANIAL PRESSURE 01/23/2010 MADL MANUFACTURING PROCESS TECHNICIAN, JIMI L 348.2 IDIOPATHIC INTRACRANIAL HYPERTENSION (PSEUDOTUMOR CEREBRI) 01/23/2010 MADL MANUFACTURING PROCESS TECHNICIAN, JIMI L 377.01 PAPILLEDEMA ASSOCIATED WITH INCREASED INTRACRANIAL PRESSURE 02/01/2010 466.0 BRONCHITIS, ACUTE 02/01/2010 MIGUEL PAYNE, DANAE 466.0 BRONCHITIS, ACUTE 02/01/2010 BRAEDEN PAYNE, JAMIE Swift 466.0 BRONCHITIS, ACUTE 02/01/2010 NED PAYNE, CELESTE 466.0 BRONCHITIS, ACUTE 02/01/2010 466.0 BRONCHITIS, ACUTE 02/01/2010 BRAEDEN PAYNE, JAMIE Swift 466.0 BRONCHITIS, ACUTE 02/01/2010 BRAEDEN PAYNE, JAMIE Swift 466.0 BRONCHITIS, ACUTE 02/01/2010 BRAEDEN PAYNE, JAMIE Swift 466.0 BRONCHITIS, ACUTE 02/01/2010 BRAEDEN PAYNE, JAMIE Swift 466.0 BRONCHITIS, ACUTE 02/01/2010 466.0 BRONCHITIS, ACUTE 02/01/2010 466.0 BRONCHITIS, ACUTE 02/01/2010 466.0 BRONCHITIS, ACUTE 02/01/2010 466.0 BRONCHITIS, ACUTE 02/01/2010 466.0 BRONCHITIS, ACUTE 02/01/2010 466.0 BRONCHITIS, ACUTE 02/01/2010 466.0 BRONCHITIS, ACUTE 02/01/2010 466.0 BRONCHITIS, ACUTE 02/01/2010 466.0 BRONCHITIS, ACUTE 02/01/2010 466.0 BRONCHITIS, ACUTE 02/01/2010 466.0 BRONCHITIS, ACUTE 02/01/2010 466.0 BRONCHITIS, ACUTE 02/01/2010 BRAEDEN PAYNE, JAMIE Swift 466.0 BRONCHITIS, ACUTE 02/01/2010 BRAEDEN PAYNE, JAMIE Swift 466.0 BRONCHITIS, ACUTE 02/01/2010 BRAEDEN PAYNE, JAMIE Swift 466.0 BRONCHITIS, ACUTE 02/01/2010 JUNIE MANUFACTURING PROCESS TECHNICIAN, PAT R 466.0 BRONCHITIS, ACUTE 02/01/2010 BRAEDEN PAYNE, JAMIE Swift 466.0 BRONCHITIS, ACUTE 02/01/2010 BRAEDEN PAYNE, JAMIE M 466.0 BRONCHITIS, ACUTE 02/01/2010 CHAPMAN DO, DAYANA K 466.0 BRONCHITIS, ACUTE 02/01/2010 MADL MANUFACTURING PROCESS TECHNICIAN, JIMI L 466.0 BRONCHITIS, ACUTE 02/01/2010 MADL MANUFACTURING PROCESS TECHNICIAN, JIMI L 466.0 BRONCHITIS, ACUTE 02/01/2010 MADL MANUFACTURING PROCESS TECHNICIAN, JIMI L 466.0 BRONCHITIS, ACUTE 02/01/2010 MADL MANUFACTURING PROCESS TECHNICIAN, JIMI L 466.0 BRONCHITIS, ACUTE 02/01/2010 MADL MANUFACTURING PROCESS TECHNICIAN, JIMI L 466.0 BRONCHITIS, ACUTE 02/01/2010 MADL MANUFACTURING PROCESS TECHNICIAN, JIMI L 466.0 BRONCHITIS, ACUTE 02/01/2010 MADL MANUFACTURING PROCESS TECHNICIAN, JIMI L 466.0 BRONCHITIS, ACUTE 02/01/2010 CHAPMAN DO, DAYANA K 466.0 BRONCHITIS, ACUTE 02/01/2010 CHAPMAN DO, DAYANA K 466.0 BRONCHITIS, ACUTE 02/01/2010 CHAPMAN DO, DAYANA K 466.0 BRONCHITIS, ACUTE 02/01/2010 MADL MANUFACTURING PROCESS TECHNICIAN, JIMI L 466.0 BRONCHITIS, ACUTE 02/01/2010 CHAPMAN DO, DAYANA K 466.0 BRONCHITIS, ACUTE 02/01/2010 CHAPMAN DO, DAYANA K 466.0 BRONCHITIS, ACUTE 02/01/2010 MADL MANUFACTURING PROCESS TECHNICIAN, JIMI L 466.0 BRONCHITIS, ACUTE 02/01/2010 MADL MANUFACTURING PROCESS TECHNICIAN, JIMI L 466.0 BRONCHITIS, ACUTE 02/01/2010 MADL MANUFACTURING PROCESS TECHNICIAN, JIMI L 466.0 BRONCHITIS, ACUTE 02/01/2010 MADL MANUFACTURING PROCESS TECHNICIAN, JIMI L 466.0 BRONCHITIS, ACUTE 02/01/2010 MADL MANUFACTURING PROCESS TECHNICIAN, JIMI L 466.0 BRONCHITIS, ACUTE 02/01/2010 MADL MANUFACTURING PROCESS TECHNICIAN, JIMI L 466.0 BRONCHITIS, ACUTE 02/01/2010 MADL MANUFACTURING PROCESS TECHNICIAN, JIMI L 466.0 BRONCHITIS, ACUTE 02/01/2010 MADL MANUFACTURING PROCESS TECHNICIAN, JIMI L 466.0 BRONCHITIS, ACUTE 02/01/2010 MADL MANUFACTURING PROCESS TECHNICIAN, JIMI L 466.0 BRONCHITIS, ACUTE 02/01/2010 MADL MANUFACTURING PROCESS TECHNICIAN, JIMI L 466.0 BRONCHITIS, ACUTE 02/01/2010 MADL MANUFACTURING PROCESS TECHNICIAN, JIMI L 466.0 BRONCHITIS, ACUTE 02/01/2010 MADL MANUFACTURING PROCESS TECHNICIAN, JIMI L 466.0 BRONCHITIS, ACUTE 02/01/2010 MADL MANUFACTURING PROCESS TECHNICIAN, JIMI L 466.0 BRONCHITIS, ACUTE 02/01/2010 MADL MANUFACTURING PROCESS TECHNICIAN, JIMI L 466.0 BRONCHITIS, ACUTE 02/01/2010 MADL MANUFACTURING PROCESS TECHNICIAN, JIMI L 466.0 BRONCHITIS, ACUTE 02/01/2010 MADL MANUFACTURING PROCESS TECHNICIAN, JIMI L 466.0 BRONCHITIS, ACUTE 02/07/2010 511.0 PLEURISY, WITHOUT MENTION OF EFFUSION OR CURRENT TUBERCULOSIS 02/07/2010 786.2 COUGH 02/07/2010 DANAE RIVERA MD 511.0 PLEURISY, WITHOUT MENTION OF EFFUSION OR CURRENT TUBERCULOSIS 02/07/2010 DANAE RIVERA MD 786.2 COUGH 02/07/2010 JAMIE DERAS MD M 511.0 PLEURISY, WITHOUT MENTION OF EFFUSION OR CURRENT TUBERCULOSIS 02/07/2010 JAMIE DERAS MD M 786.2 COUGH 02/07/2010 CELESTE MARINO MD 511.0 PLEURISY, WITHOUT MENTION OF EFFUSION OR CURRENT TUBERCULOSIS 02/07/2010 CELESTE MARINO MD 786.2 COUGH 02/07/2010 511.0 PLEURISY, WITHOUT MENTION OF EFFUSION OR CURRENT TUBERCULOSIS 02/07/2010 786.2 COUGH 02/07/2010 JAMIE DERAS MD M 511.0 PLEURISY, WITHOUT MENTION OF EFFUSION OR CURRENT TUBERCULOSIS 02/07/2010 JAMIE DERAS MD M 786.2 COUGH 02/07/2010 JAMIE DERAS MD M 511.0 PLEURISY, WITHOUT MENTION OF EFFUSION OR CURRENT TUBERCULOSIS 02/07/2010 JAMIE DERAS MD M 786.2 COUGH 02/07/2010 JAMIE DERAS MD M 511.0 PLEURISY, WITHOUT MENTION OF EFFUSION OR CURRENT TUBERCULOSIS 02/07/2010 JAMIE DERAS MD M 786.2 COUGH 02/07/2010 JAMIE DERAS MD M 511.0 PLEURISY, WITHOUT MENTION OF EFFUSION OR CURRENT TUBERCULOSIS 02/07/2010 JAMIE DERAS MD M 786.2 COUGH 02/07/2010 511.0 PLEURISY, WITHOUT MENTION OF EFFUSION OR CURRENT TUBERCULOSIS 02/07/2010 786.2 COUGH 02/07/2010 511.0 PLEURISY, WITHOUT MENTION OF EFFUSION OR CURRENT TUBERCULOSIS 02/07/2010 786.2 COUGH 02/07/2010 511.0 PLEURISY, WITHOUT MENTION OF EFFUSION OR CURRENT TUBERCULOSIS 02/07/2010 786.2 COUGH 02/07/2010 511.0 PLEURISY, WITHOUT MENTION OF EFFUSION OR CURRENT TUBERCULOSIS 02/07/2010 786.2 COUGH 02/07/2010 511.0 PLEURISY, WITHOUT MENTION OF EFFUSION OR CURRENT TUBERCULOSIS 02/07/2010 786.2 COUGH 02/07/2010 511.0 PLEURISY, WITHOUT MENTION OF EFFUSION OR CURRENT TUBERCULOSIS 02/07/2010 786.2 COUGH 02/07/2010 511.0 PLEURISY, WITHOUT MENTION OF EFFUSION OR CURRENT TUBERCULOSIS 02/07/2010 786.2 COUGH 02/07/2010 511.0 PLEURISY, WITHOUT MENTION OF EFFUSION OR CURRENT TUBERCULOSIS 02/07/2010 786.2 COUGH 02/07/2010 511.0 PLEURISY, WITHOUT MENTION OF EFFUSION OR CURRENT TUBERCULOSIS 02/07/2010 786.2 COUGH 02/07/2010 511.0 PLEURISY, WITHOUT MENTION OF EFFUSION OR CURRENT TUBERCULOSIS 02/07/2010 786.2 COUGH 02/07/2010 511.0 PLEURISY, WITHOUT MENTION OF EFFUSION OR CURRENT TUBERCULOSIS 02/07/2010 786.2 COUGH 02/07/2010 511.0 PLEURISY, WITHOUT MENTION OF EFFUSION OR CURRENT TUBERCULOSIS 02/07/2010 786.2 COUGH 02/07/2010 JAMIE DERAS MD M 511.0 PLEURISY, WITHOUT MENTION OF EFFUSION OR CURRENT TUBERCULOSIS 02/07/2010 JAMIE DERAS MD M 786.2 COUGH 02/07/2010 JAMIE DERAS MD M 511.0 PLEURISY, WITHOUT MENTION OF EFFUSION OR CURRENT TUBERCULOSIS 02/07/2010 JAMIE DERAS MD M 786.2 COUGH 02/07/2010 JAMIE DERAS MD M 511.0 PLEURISY, WITHOUT MENTION OF EFFUSION OR CURRENT TUBERCULOSIS 02/07/2010 JAMIE DERAS MD M 786.2 COUGH 02/07/2010 JUNIE MANUFACTURING PROCESS TECHNICIAN, PAT R 511.0 PLEURISY, WITHOUT MENTION OF EFFUSION OR CURRENT TUBERCULOSIS 02/07/2010 JUNIE MANUFACTURING PROCESS TECHNICIAN, PAT R 786.2 COUGH 02/07/2010 JAMIE DERAS MD M 511.0 PLEURISY, WITHOUT MENTION OF EFFUSION OR CURRENT TUBERCULOSIS 02/07/2010 JAMIE DERAS MD M 786.2 COUGH 02/07/2010 JAMIE DERAS MD M 511.0 PLEURISY, WITHOUT MENTION OF EFFUSION OR CURRENT TUBERCULOSIS 02/07/2010 JAMIE DERAS MD M 786.2 COUGH 02/07/2010 CHAPMAN DO DAYANA K 511.0 PLEURISY, WITHOUT MENTION OF EFFUSION OR CURRENT TUBERCULOSIS 02/07/2010 CHAPMAN DO, DAYANA K 786.2 COUGH 02/07/2010 MADL MANUFACTURING PROCESS TECHNICIAN, JIMI L 511.0 PLEURISY, WITHOUT MENTION OF EFFUSION OR CURRENT TUBERCULOSIS 02/07/2010 MADL MANUFACTURING PROCESS TECHNICIAN, JIMI L 786.2 COUGH 02/07/2010 MADL MANUFACTURING PROCESS TECHNICIAN, JIMI L 511.0 PLEURISY, WITHOUT MENTION OF EFFUSION OR CURRENT TUBERCULOSIS 02/07/2010 MADL MANUFACTURING PROCESS TECHNICIAN, JIMI L 786.2 COUGH 02/07/2010 MADL MANUFACTURING PROCESS TECHNICIAN, JIMI L 511.0 PLEURISY, WITHOUT MENTION OF EFFUSION OR CURRENT TUBERCULOSIS 02/07/2010 MADL MANUFACTURING PROCESS TECHNICIAN, JIMI L 786.2 COUGH 02/07/2010 MADL MANUFACTURING PROCESS TECHNICIAN, JIMI L 511.0 PLEURISY, WITHOUT MENTION OF EFFUSION OR CURRENT TUBERCULOSIS 02/07/2010 MADL MANUFACTURING PROCESS TECHNICIAN, JIMI L 786.2 COUGH 02/07/2010 MADL MANUFACTURING PROCESS TECHNICIAN, JIMI L 511.0 PLEURISY, WITHOUT MENTION OF EFFUSION OR CURRENT TUBERCULOSIS 02/07/2010 MADL MANUFACTURING PROCESS TECHNICIAN, JIMI L 786.2 COUGH 02/07/2010 MADL MANUFACTURING PROCESS TECHNICIAN, JIMI L 511.0 PLEURISY, WITHOUT MENTION OF EFFUSION OR CURRENT TUBERCULOSIS 02/07/2010 MADL MANUFACTURING PROCESS TECHNICIAN, JIMI L 786.2 COUGH 02/07/2010 MADL MANUFACTURING PROCESS TECHNICIAN, JIMI L 511.0 PLEURISY, WITHOUT MENTION OF EFFUSION OR CURRENT TUBERCULOSIS 02/07/2010 MADL MANUFACTURING PROCESS TECHNICIAN, JIMI L 786.2 COUGH 02/07/2010 CHAPMAN DO, DAYANA K 511.0 PLEURISY, WITHOUT MENTION OF EFFUSION OR CURRENT TUBERCULOSIS 02/07/2010 CHAPMAN DO, DAYANA K 786.2 COUGH 02/07/2010 CHAPMAN DO, DAYANA K 511.0 PLEURISY, WITHOUT MENTION OF EFFUSION OR CURRENT TUBERCULOSIS 02/07/2010 CHAPMAN DO, DAYANA K 786.2 COUGH 02/07/2010 CHAPMAN DO, DAYANA K 511.0 PLEURISY, WITHOUT MENTION OF EFFUSION OR CURRENT TUBERCULOSIS 02/07/2010 CHAPMAN DO, DAYANA K 786.2 COUGH 02/07/2010 MADL MANUFACTURING PROCESS TECHNICIAN, JIMI L 511.0 PLEURISY, WITHOUT MENTION OF EFFUSION OR CURRENT TUBERCULOSIS 02/07/2010 MADL MANUFACTURING PROCESS TECHNICIAN, JIMI L 786.2 COUGH 02/07/2010 CHAPMAN DO, DAYANA K 511.0 PLEURISY, WITHOUT MENTION OF EFFUSION OR CURRENT TUBERCULOSIS 02/07/2010 CHAPMAN DO, DAYANA K 786.2 COUGH 02/07/2010 CHAPMAN DO, DAYANA K 511.0 PLEURISY, WITHOUT MENTION OF EFFUSION OR CURRENT TUBERCULOSIS 02/07/2010 CHAPMAN DO, DAYANA K 786.2 COUGH 02/07/2010 MADL MANUFACTURING PROCESS TECHNICIAN, JIMI L 511.0 PLEURISY, WITHOUT MENTION OF EFFUSION OR CURRENT TUBERCULOSIS 02/07/2010 MADL MANUFACTURING PROCESS TECHNICIAN, JIMI L 786.2 COUGH 02/07/2010 MADL MANUFACTURING PROCESS TECHNICIAN, JIMI L 511.0 PLEURISY, WITHOUT MENTION OF EFFUSION OR CURRENT TUBERCULOSIS 02/07/2010 MADL MANUFACTURING PROCESS TECHNICIAN, JIMI L 786.2 COUGH 02/07/2010 MADL MANUFACTURING PROCESS TECHNICIAN, JIMI L 511.0 PLEURISY, WITHOUT MENTION OF EFFUSION OR CURRENT TUBERCULOSIS 02/07/2010 MADL MANUFACTURING PROCESS TECHNICIAN, JIMI L 786.2 COUGH 02/07/2010 MADL MANUFACTURING PROCESS TECHNICIAN, JIMI L 511.0 PLEURISY, WITHOUT MENTION OF EFFUSION OR CURRENT TUBERCULOSIS 02/07/2010 MADL MANUFACTURING PROCESS TECHNICIAN, JIMI L 786.2 COUGH 02/07/2010 MADL MANUFACTURING PROCESS TECHNICIAN, JIMI L 511.0 PLEURISY, WITHOUT MENTION OF EFFUSION OR CURRENT TUBERCULOSIS 02/07/2010 MADL MANUFACTURING PROCESS TECHNICIAN, JIMI L 786.2 COUGH 02/07/2010 MADL MANUFACTURING PROCESS TECHNICIAN, JIMI L 511.0 PLEURISY, WITHOUT MENTION OF EFFUSION OR CURRENT TUBERCULOSIS 02/07/2010 MADL MANUFACTURING PROCESS TECHNICIAN, JIMI L 786.2 COUGH 02/07/2010 MADL MANUFACTURING PROCESS TECHNICIAN, JIMI L 511.0 PLEURISY, WITHOUT MENTION OF EFFUSION OR CURRENT TUBERCULOSIS 02/07/2010 MADL MANUFACTURING PROCESS TECHNICIAN, JIMI L 786.2 COUGH 02/07/2010 MADL MANUFACTURING PROCESS TECHNICIAN, JIMI L 511.0 PLEURISY, WITHOUT MENTION OF EFFUSION OR CURRENT TUBERCULOSIS 02/07/2010 MADL MANUFACTURING PROCESS TECHNICIAN, JIMI L 786.2 COUGH 02/07/2010 MADL MANUFACTURING PROCESS TECHNICIAN, JIMI L 511.0 PLEURISY, WITHOUT MENTION OF EFFUSION OR CURRENT TUBERCULOSIS 02/07/2010 MADL MANUFACTURING PROCESS TECHNICIAN, IJMI L 786.2 COUGH 02/07/2010 MADL MANUFACTURING PROCESS TECHNICIAN, JIMI L 511.0 PLEURISY, WITHOUT MENTION OF EFFUSION OR CURRENT TUBERCULOSIS 02/07/2010 MADL MANUFACTURING PROCESS TECHNICIAN, JIMI L 786.2 COUGH 02/07/2010 MADL MANUFACTURING PROCESS TECHNICIAN, JIMI L 511.0 PLEURISY, WITHOUT MENTION OF EFFUSION OR CURRENT TUBERCULOSIS 02/07/2010 MADL MANUFACTURING PROCESS TECHNICIAN, JIMI L 786.2 COUGH 02/07/2010 MADL MANUFACTURING PROCESS TECHNICIAN, JIMI L 511.0 PLEURISY, WITHOUT MENTION OF EFFUSION OR CURRENT TUBERCULOSIS 02/07/2010 MADL MANUFACTURING PROCESS TECHNICIAN, JIMI L 786.2 COUGH 02/07/2010 MADL MANUFACTURING PROCESS TECHNICIAN, JIMI L 511.0 PLEURISY, WITHOUT MENTION OF EFFUSION OR CURRENT TUBERCULOSIS 02/07/2010 MADL MANUFACTURING PROCESS TECHNICIAN, JIMI L 786.2 COUGH 02/07/2010 MADL MANUFACTURING PROCESS TECHNICIAN, JIMI L 511.0 PLEURISY, WITHOUT MENTION OF EFFUSION OR CURRENT TUBERCULOSIS 02/07/2010 MADL MANUFACTURING PROCESS TECHNICIAN, JIMI L 786.2 COUGH 02/07/2010 MADL MANUFACTURING PROCESS TECHNICIAN, JIMI L 511.0 PLEURISY, WITHOUT MENTION OF EFFUSION OR CURRENT TUBERCULOSIS 02/07/2010 MADL MANUFACTURING PROCESS TECHNICIAN, JMII L 786.2 COUGH 02/07/2010 MADL MANUFACTURING PROCESS TECHNICIAN, JIMI L 511.0 PLEURISY, WITHOUT MENTION OF EFFUSION OR CURRENT TUBERCULOSIS 02/07/2010 MADL MANUFACTURING PROCESS TECHNICIAN, JIMI L 786.2 COUGH 03/06/2010 Ot V10.44 03/06/2010 Ot V58.69 03/06/2010 Ot V67.2 04/15/2010 Ot 349.0 04/15/2010 Ot 784.0 05/28/2010 Ot 348.2 05/28/2010 Ot 784.0 06/05/2010 Ot 181 06/05/2010 Ot 305.1 06/05/2010 Ot 401.9 06/05/2010 Ot 462 06/05/2010 Ot 788.99 06/05/2010 Ot V58.69 06/05/2010 Ot V87.41 12/16/2010 Ot 181 12/16/2010 Ot 305.1 12/16/2010 Ot 401.9 12/16/2010 Ot 462 12/16/2010 Ot 788.99 12/16/2010 Ot V58.69 12/16/2010 Ot V87.41 03/19/2011 Ot 181 03/19/2011 Ot 305.1 03/19/2011 Ot 401.9 03/19/2011 Ot 462 03/19/2011 Ot 788.99 03/19/2011 Ot V58.69 03/19/2011 Ot V87.41 05/13/2011 462 ACUTE PHARYNGITIS 05/13/2011 465.9 UPPER RESPIRATORY INFECTION 05/13/2011 MIGUEL PAYNE, DANAE 462 ACUTE PHARYNGITIS 05/13/2011 MIGUEL PAYNE, DANAE 465.9 UPPER RESPIRATORY INFECTION 05/13/2011 BRAEDEN PAYNE, JAMIE Swift 462 ACUTE PHARYNGITIS 05/13/2011 BRAEDEN PAYNE, JAMIE Swift 465.9 UPPER RESPIRATORY INFECTION 05/13/2011 CELESTE MARINO MD 462 ACUTE PHARYNGITIS 05/13/2011 CELESTE MARINO MD 465.9 UPPER RESPIRATORY INFECTION 05/13/2011 462 ACUTE PHARYNGITIS 05/13/2011 465.9 UPPER RESPIRATORY INFECTION 05/13/2011 JAMIE DERAS MD M 462 ACUTE PHARYNGITIS 05/13/2011 JAMIE DERAS MD M 465.9 UPPER RESPIRATORY INFECTION 05/13/2011 JAMIE DERAS MD M 462 ACUTE PHARYNGITIS 05/13/2011 AJMIE DERAS MD M 465.9 UPPER RESPIRATORY INFECTION 05/13/2011 JAMIE DERAS MD M 462 ACUTE PHARYNGITIS 05/13/2011 JAMIE DERAS MD M 465.9 UPPER RESPIRATORY INFECTION 05/13/2011 JAMIE DERAS MD M 462 ACUTE PHARYNGITIS 05/13/2011 JAMIE DERAS MD 465.9 UPPER RESPIRATORY INFECTION 05/13/2011 462 ACUTE PHARYNGITIS 05/13/2011 465.9 UPPER RESPIRATORY INFECTION 05/13/2011 462 ACUTE PHARYNGITIS 05/13/2011 465.9 UPPER RESPIRATORY INFECTION 05/13/2011 462 ACUTE PHARYNGITIS 05/13/2011 465.9 UPPER RESPIRATORY INFECTION 05/13/2011 462 ACUTE PHARYNGITIS 05/13/2011 465.9 UPPER RESPIRATORY INFECTION 05/13/2011 462 ACUTE PHARYNGITIS 05/13/2011 465.9 UPPER RESPIRATORY INFECTION 05/13/2011 462 ACUTE PHARYNGITIS 05/13/2011 465.9 UPPER RESPIRATORY INFECTION 05/13/2011 462 ACUTE PHARYNGITIS 05/13/2011 465.9 UPPER RESPIRATORY INFECTION 05/13/2011 462 ACUTE PHARYNGITIS 05/13/2011 465.9 UPPER RESPIRATORY INFECTION 05/13/2011 462 ACUTE PHARYNGITIS 05/13/2011 465.9 UPPER RESPIRATORY INFECTION 05/13/2011 462 ACUTE PHARYNGITIS 05/13/2011 465.9 UPPER RESPIRATORY INFECTION 05/13/2011 462 ACUTE PHARYNGITIS 05/13/2011 465.9 UPPER RESPIRATORY INFECTION 05/13/2011 462 ACUTE PHARYNGITIS 05/13/2011 465.9 UPPER RESPIRATORY INFECTION 05/13/2011 JAMIE DERAS MD M 462 ACUTE PHARYNGITIS 05/13/2011 JAMIE DERAS MD 465.9 UPPER RESPIRATORY INFECTION 05/13/2011 JAMIE DERAS MD M 462 ACUTE PHARYNGITIS 05/13/2011 JAMIE DERAS MD M 465.9 UPPER RESPIRATORY INFECTION 05/13/2011 JAMIE DERAS MD M 462 ACUTE PHARYNGITIS 05/13/2011 JAMIE DERAS MD M 465.9 UPPER RESPIRATORY INFECTION 05/13/2011 JUNIE MANUFACTURING PROCESS TECHNICIAN, PAT R 462 ACUTE PHARYNGITIS 05/13/2011 JUNIE MANUFACTURING PROCESS TECHNICIAN, PAT R 465.9 UPPER RESPIRATORY INFECTION 05/13/2011 JAMIE DERAS MD M 462 ACUTE PHARYNGITIS 05/13/2011 JAMIE DERAS MD 465.9 UPPER RESPIRATORY INFECTION 05/13/2011 JAMIE DERAS MD M 462 ACUTE PHARYNGITIS 05/13/2011 JAMIE DERAS MD M 465.9 UPPER RESPIRATORY INFECTION 05/13/2011 CHAPMAN DO, DAYANA K 462 ACUTE PHARYNGITIS 05/13/2011 CHAPMAN DO, DAYANA K 465.9 UPPER RESPIRATORY INFECTION 05/13/2011 MADDeloris MANUFACTURING PROCESS TECHNICIANLENA L 462 ACUTE PHARYNGITIS 05/13/2011 CEZAR MANUFACTURING PROCESS TECHNICIAN, JIMI L 465.9 UPPER RESPIRATORY INFECTION 05/13/2011 MADL MANUFACTURING PROCESS TECHNICIAN, JIMI L 462 ACUTE PHARYNGITIS 05/13/2011 MADL MANUFACTURING PROCESS TECHNICIAN, JIMI L 465.9 UPPER RESPIRATORY INFECTION 05/13/2011 MADL MANUFACTURING PROCESS TECHNICIAN, JIMI L 462 ACUTE PHARYNGITIS 05/13/2011 MADL MANUFACTURING PROCESS TECHNICIAN, JIMI L 465.9 UPPER RESPIRATORY INFECTION 05/13/2011 MADL MANUFACTURING PROCESS TECHNICIAN, JIMI L 462 ACUTE PHARYNGITIS 05/13/2011 MADL MANUFACTURING PROCESS TECHNICIAN, JIMI L 465.9 UPPER RESPIRATORY INFECTION 05/13/2011 MADL MANUFACTURING PROCESS TECHNICIAN, JIMI L 462 ACUTE PHARYNGITIS 05/13/2011 MADL MANUFACTURING PROCESS TECHNICIAN, JIMI L 465.9 UPPER RESPIRATORY INFECTION 05/13/2011 MADL MANUFACTURING PROCESS TECHNICIAN, JIMI L 462 ACUTE PHARYNGITIS 05/13/2011 MADL MANUFACTURING PROCESS TECHNICIAN, JIMI L 465.9 UPPER RESPIRATORY INFECTION 05/13/2011 MADL MANUFACTURING PROCESS TECHNICIAN, JIMI L 462 ACUTE PHARYNGITIS 05/13/2011 MADL MANUFACTURING PROCESS TECHNICIAN, JIMI L 465.9 UPPER RESPIRATORY INFECTION 05/13/2011 CHAPMAN DO, DAYANA K 462 ACUTE PHARYNGITIS 05/13/2011 CHAPMAN DO, DAYANA K 465.9 UPPER RESPIRATORY INFECTION 05/13/2011 CHAPMAN DO, DAYANA K 462 ACUTE PHARYNGITIS 05/13/2011 CHAPMAN DO, DAYANA K 465.9 UPPER RESPIRATORY INFECTION 05/13/2011 CHAPMAN DO, DAYANA K 462 ACUTE PHARYNGITIS 05/13/2011 CHAPMAN DO, DAYANA K 465.9 UPPER RESPIRATORY INFECTION 05/13/2011 MADL MANUFACTURING PROCESS TECHNICIAN, JIMI L 462 ACUTE PHARYNGITIS 05/13/2011 MADL MANUFACTURING PROCESS TECHNICIAN, JIMI L 465.9 UPPER RESPIRATORY INFECTION 05/13/2011 CHAPMAN DO, DAYANA K 462 ACUTE PHARYNGITIS 05/13/2011 CHAPMAN DO, DAYANA K 465.9 UPPER RESPIRATORY INFECTION 05/13/2011 CHAPMAN DO, DAYANA K 462 ACUTE PHARYNGITIS 05/13/2011 CHAPMAN DO, DAYANA K 465.9 UPPER RESPIRATORY INFECTION 05/13/2011 MADL MANUFACTURING PROCESS TECHNICIAN, JIMI L 462 ACUTE PHARYNGITIS 05/13/2011 MADL MANUFACTURING PROCESS TECHNICIAN, JIMI L 465.9 UPPER RESPIRATORY INFECTION 05/13/2011 MADL MANUFACTURING PROCESS TECHNICIAN, JIMI L 462 ACUTE PHARYNGITIS 05/13/2011 MADL MANUFACTURING PROCESS TECHNICIAN, JIMI L 465.9 UPPER RESPIRATORY INFECTION 05/13/2011 MADL MANUFACTURING PROCESS TECHNICIAN, JIMI L 462 ACUTE PHARYNGITIS 05/13/2011 MADL MANUFACTURING PROCESS TECHNICIAN, JIMI L 465.9 UPPER RESPIRATORY INFECTION 05/13/2011 MADL MANUFACTURING PROCESS TECHNICIAN, JIMI L 462 ACUTE PHARYNGITIS 05/13/2011 MADL MANUFACTURING PROCESS TECHNICIAN, JIMI L 465.9 UPPER RESPIRATORY INFECTION 05/13/2011 MADL MANUFACTURING PROCESS TECHNICIAN, JIMI L 462 ACUTE PHARYNGITIS 05/13/2011 MADL MANUFACTURING PROCESS TECHNICIAN, JIMI L 465.9 UPPER RESPIRATORY INFECTION 05/13/2011 MADL MANUFACTURING PROCESS TECHNICIAN, JIMI L 462 ACUTE PHARYNGITIS 05/13/2011 MADL MANUFACTURING PROCESS TECHNICIAN, JIMI L 465.9 UPPER RESPIRATORY INFECTION 05/13/2011 MADL MANUFACTURING PROCESS TECHNICIAN, JIMI L 462 ACUTE PHARYNGITIS 05/13/2011 MADL MANUFACTURING PROCESS TECHNICIAN, JIMI L 465.9 UPPER RESPIRATORY INFECTION 05/13/2011 MADL MANUFACTURING PROCESS TECHNICIAN, JIMI L 462 ACUTE PHARYNGITIS 05/13/2011 MADL MANUFACTURING PROCESS TECHNICIAN, JIMI L 465.9 UPPER RESPIRATORY INFECTION 05/13/2011 MADL MANUFACTURING PROCESS TECHNICIAN, JIMI L 462 ACUTE PHARYNGITIS 05/13/2011 MADL MANUFACTURING PROCESS TECHNICIAN, JIMI L 465.9 UPPER RESPIRATORY INFECTION 05/13/2011 MADL MANUFACTURING PROCESS TECHNICIAN, JIMI L 462 ACUTE PHARYNGITIS 05/13/2011 MADL MANUFACTURING PROCESS TECHNICIAN, JIMI L 465.9 UPPER RESPIRATORY INFECTION 05/13/2011 MADL MANUFACTURING PROCESS TECHNICIAN, JIMI L 462 ACUTE PHARYNGITIS 05/13/2011 MADL MANUFACTURING PROCESS TECHNICIAN, JIMI L 465.9 UPPER RESPIRATORY INFECTION 05/13/2011 MADL MANUFACTURING PROCESS TECHNICIAN, JIMI L 462 ACUTE PHARYNGITIS 05/13/2011 MADL MANUFACTURING PROCESS TECHNICIAN, JIMI L 465.9 UPPER RESPIRATORY INFECTION 05/13/2011 MADL MANUFACTURING PROCESS TECHNICIAN, JIMI L 462 ACUTE PHARYNGITIS 05/13/2011 MADL MANUFACTURING PROCESS TECHNICIAN, JIMI L 465.9 UPPER RESPIRATORY INFECTION 05/13/2011 MADL MANUFACTURING PROCESS TECHNICIAN, JIMI L 462 ACUTE PHARYNGITIS 05/13/2011 MADL MANUFACTURING PROCESS TECHNICIAN, JIMI L 465.9 UPPER RESPIRATORY INFECTION 05/13/2011 MADL MANUFACTURING PROCESS TECHNICIAN, JIMI L 462 ACUTE PHARYNGITIS 05/13/2011 MADL MANUFACTURING PROCESS TECHNICIAN, JIMI L 465.9 UPPER RESPIRATORY INFECTION 05/13/2011 MADL MANUFACTURING PROCESS TECHNICIAN, JIMI L 462 ACUTE PHARYNGITIS 05/13/2011 MADL MANUFACTURING PROCESS TECHNICIAN, JIMI L 465.9 UPPER RESPIRATORY INFECTION 06/11/2011 382.00 OTITIS MEDIA ACUTE SUPPURATIVE 06/11/2011 780.60 FEVER, UNSPECIFIED 06/11/2011 DANAE RIVERA MD 382.00 OTITIS MEDIA ACUTE SUPPURATIVE 06/11/2011 DANAE RIVERA MD 780.60 FEVER, UNSPECIFIED 06/11/2011 JAMIE DERAS MD 382.00 OTITIS MEDIA ACUTE SUPPURATIVE 06/11/2011 JAMIE DERAS MD 780.60 FEVER, UNSPECIFIED 06/11/2011 CELESTE MARINO MD 382.00 OTITIS MEDIA ACUTE SUPPURATIVE 06/11/2011 CELESTE MARINO MD 780.60 FEVER, UNSPECIFIED 06/11/2011 382.00 OTITIS MEDIA ACUTE SUPPURATIVE 06/11/2011 780.60 FEVER, UNSPECIFIED 06/11/2011 JAMIE DERAS MD M 382.00 OTITIS MEDIA ACUTE SUPPURATIVE 06/11/2011 JAMIE DERAS MD 780.60 FEVER, UNSPECIFIED 06/11/2011 JAMIE DERAS MD M 382.00 OTITIS MEDIA ACUTE SUPPURATIVE 06/11/2011 JAMIE DERAS MD 780.60 FEVER, UNSPECIFIED 06/11/2011 JAMIE DERAS MD M 382.00 OTITIS MEDIA ACUTE SUPPURATIVE 06/11/2011 JAMIE DERAS MD 780.60 FEVER, UNSPECIFIED 06/11/2011 JAMIE DERAS MD 382.00 OTITIS MEDIA ACUTE SUPPURATIVE 06/11/2011 JAMIE DERAS MD 780.60 FEVER, UNSPECIFIED 06/11/2011 382.00 OTITIS MEDIA ACUTE SUPPURATIVE 06/11/2011 780.60 FEVER, UNSPECIFIED 06/11/2011 382.00 OTITIS MEDIA ACUTE SUPPURATIVE 06/11/2011 780.60 FEVER, UNSPECIFIED 06/11/2011 382.00 OTITIS MEDIA ACUTE SUPPURATIVE 06/11/2011 780.60 FEVER, UNSPECIFIED 06/11/2011 382.00 OTITIS MEDIA ACUTE SUPPURATIVE 06/11/2011 780.60 FEVER, UNSPECIFIED 06/11/2011 382.00 OTITIS MEDIA ACUTE SUPPURATIVE 06/11/2011 780.60 FEVER, UNSPECIFIED 06/11/2011 382.00 OTITIS MEDIA ACUTE SUPPURATIVE 06/11/2011 780.60 FEVER, UNSPECIFIED 06/11/2011 382.00 OTITIS MEDIA ACUTE SUPPURATIVE 06/11/2011 780.60 FEVER, UNSPECIFIED 06/11/2011 382.00 OTITIS MEDIA ACUTE SUPPURATIVE 06/11/2011 780.60 FEVER, UNSPECIFIED 06/11/2011 382.00 OTITIS MEDIA ACUTE SUPPURATIVE 06/11/2011 780.60 FEVER, UNSPECIFIED 06/11/2011 382.00 OTITIS MEDIA ACUTE SUPPURATIVE 06/11/2011 780.60 FEVER, UNSPECIFIED 06/11/2011 382.00 OTITIS MEDIA ACUTE SUPPURATIVE 06/11/2011 780.60 FEVER, UNSPECIFIED 06/11/2011 382.00 OTITIS MEDIA ACUTE SUPPURATIVE 06/11/2011 780.60 FEVER, UNSPECIFIED 06/11/2011 JAMIE DERAS MD 382.00 OTITIS MEDIA ACUTE SUPPURATIVE 06/11/2011 JAMIE DERAS MD 780.60 FEVER, UNSPECIFIED 06/11/2011 JAMIE DERAS MD 382.00 OTITIS MEDIA ACUTE SUPPURATIVE 06/11/2011 JAMIE DERAS MD 780.60 FEVER, UNSPECIFIED 06/11/2011 JAMIE DERAS MD 382.00 OTITIS MEDIA ACUTE SUPPURATIVE 06/11/2011 JAMIE DERAS MD 780.60 FEVER, UNSPECIFIED 06/11/2011 JUNIE MANUFACTURING PROCESS TECHNICIAN, PAT R 382.00 OTITIS MEDIA ACUTE SUPPURATIVE 06/11/2011 JUINE MANUFACTURING PROCESS TECHNICIAN, PAT R 780.60 FEVER, UNSPECIFIED 06/11/2011 BRAEDEN MD, JAMIE M 382.00 OTITIS MEDIA ACUTE SUPPURATIVE 06/11/2011 BRAEDEN PAYNE, JAMIE Swift 780.60 FEVER, UNSPECIFIED 06/11/2011 BRAEDEN PAYNE, JAMIE M 382.00 OTITIS MEDIA ACUTE SUPPURATIVE 06/11/2011 BRAEDEN PAYNE, JAMIE M 780.60 FEVER, UNSPECIFIED 06/11/2011 CHAPMAN DO, DAYANA K 382.00 OTITIS MEDIA ACUTE SUPPURATIVE 06/11/2011 CHAPMAN DO, DAYANA K 780.60 FEVER, UNSPECIFIED 06/11/2011 MADL MANUFACTURING PROCESS TECHNICIAN, JIMI L 382.00 OTITIS MEDIA ACUTE SUPPURATIVE 06/11/2011 MADL MANUFACTURING PROCESS TECHNICIAN, JIMI L 780.60 FEVER, UNSPECIFIED 06/11/2011 MADL MANUFACTURING PROCESS TECHNICIAN, JIMI L 382.00 OTITIS MEDIA ACUTE SUPPURATIVE 06/11/2011 MADL MANUFACTURING PROCESS TECHNICIAN, JIMI L 780.60 FEVER, UNSPECIFIED 06/11/2011 MADL MANUFACTURING PROCESS TECHNICIAN, JIMI L 382.00 OTITIS MEDIA ACUTE SUPPURATIVE 06/11/2011 MADL MANUFACTURING PROCESS TECHNICIAN, JIMI L 780.60 FEVER, UNSPECIFIED 06/11/2011 MADL MANUFACTURING PROCESS TECHNICIAN, JIMI L 382.00 OTITIS MEDIA ACUTE SUPPURATIVE 06/11/2011 MADL MANUFACTURING PROCESS TECHNICIAN, JIMI L 780.60 FEVER, UNSPECIFIED 06/11/2011 MADL MANUFACTURING PROCESS TECHNICIAN, JIMI L 382.00 OTITIS MEDIA ACUTE SUPPURATIVE 06/11/2011 MADL MANUFACTURING PROCESS TECHNICIAN, JIMI L 780.60 FEVER, UNSPECIFIED 06/11/2011 MADL MANUFACTURING PROCESS TECHNICIAN, JIMI L 382.00 OTITIS MEDIA ACUTE SUPPURATIVE 06/11/2011 MADL MANUFACTURING PROCESS TECHNICIAN, JIMI L 780.60 FEVER, UNSPECIFIED 06/11/2011 MADL MANUFACTURING PROCESS TECHNICIAN, JIMI L 382.00 OTITIS MEDIA ACUTE SUPPURATIVE 06/11/2011 MADL MANUFACTURING PROCESS TECHNICIAN, JIMI L 780.60 FEVER, UNSPECIFIED 06/11/2011 CHAPMAN DO, DAYANA K 382.00 OTITIS MEDIA ACUTE SUPPURATIVE 06/11/2011 CHAPMAN DO, DAYANA K 780.60 FEVER, UNSPECIFIED 06/11/2011 CHAPMAN DO, DAYANA K 382.00 OTITIS MEDIA ACUTE SUPPURATIVE 06/11/2011 CHAPMAN DO, DAYANA K 780.60 FEVER, UNSPECIFIED 06/11/2011 CHAPMAN DO, DAYANA K 382.00 OTITIS MEDIA ACUTE SUPPURATIVE 06/11/2011 CHAPMAN DO, DAYANA K 780.60 FEVER, UNSPECIFIED 06/11/2011 MADL MANUFACTURING PROCESS TECHNICIAN, JIMI L 382.00 OTITIS MEDIA ACUTE SUPPURATIVE 06/11/2011 MADL MANUFACTURING PROCESS TECHNICIAN, JIMI L 780.60 FEVER, UNSPECIFIED 06/11/2011 CHAPMAN DO, DAYANA K 382.00 OTITIS MEDIA ACUTE SUPPURATIVE 06/11/2011 CHAPMAN DO, DAYANA K 780.60 FEVER, UNSPECIFIED 06/11/2011 CHAPMAN DO, DAYANA K 382.00 OTITIS MEDIA ACUTE SUPPURATIVE 06/11/2011 CHAPMAN DO, DAYANA K 780.60 FEVER, UNSPECIFIED 06/11/2011 MADL MANUFACTURING PROCESS TECHNICIAN, JIMI L 382.00 OTITIS MEDIA ACUTE SUPPURATIVE 06/11/2011 MADL MANUFACTURING PROCESS TECHNICIAN, JIMI L 780.60 FEVER, UNSPECIFIED 06/11/2011 MADL MANUFACTURING PROCESS TECHNICIAN, JIMI L 382.00 OTITIS MEDIA ACUTE SUPPURATIVE 06/11/2011 MADL MANUFACTURING PROCESS TECHNICIAN, JIMI L 780.60 FEVER, UNSPECIFIED 06/11/2011 MADL MANUFACTURING PROCESS TECHNICIAN, JIMI L 382.00 OTITIS MEDIA ACUTE SUPPURATIVE 06/11/2011 MADL MANUFACTURING PROCESS TECHNICIAN, JIMI L 780.60 FEVER, UNSPECIFIED 06/11/2011 MADL MANUFACTURING PROCESS TECHNICIAN, JIMI L 382.00 OTITIS MEDIA ACUTE SUPPURATIVE 06/11/2011 MADL MANUFACTURING PROCESS TECHNICIAN, JIMI L 780.60 FEVER, UNSPECIFIED 06/11/2011 MADL MANUFACTURING PROCESS TECHNICIAN, JIMI L 382.00 OTITIS MEDIA ACUTE SUPPURATIVE 06/11/2011 MADL MANUFACTURING PROCESS TECHNICIAN, JIMI L 780.60 FEVER, UNSPECIFIED 06/11/2011 MADL MANUFACTURING PROCESS TECHNICIAN, JIMI L 382.00 OTITIS MEDIA ACUTE SUPPURATIVE 06/11/2011 MADL MANUFACTURING PROCESS TECHNICIAN, JIMI L 780.60 FEVER, UNSPECIFIED 06/11/2011 MADL MANUFACTURING PROCESS TECHNICIAN, JIMI L 382.00 OTITIS MEDIA ACUTE SUPPURATIVE 06/11/2011 MADL MANUFACTURING PROCESS TECHNICIAN, JIMI L 780.60 FEVER, UNSPECIFIED 06/11/2011 MADL MANUFACTURING PROCESS TECHNICIAN, JIMI L 382.00 OTITIS MEDIA ACUTE SUPPURATIVE 06/11/2011 MADL MANUFACTURING PROCESS TECHNICIAN, JIMI L 780.60 FEVER, UNSPECIFIED 06/11/2011 MADL MANUFACTURING PROCESS TECHNICIAN, JIMI L 382.00 OTITIS MEDIA ACUTE SUPPURATIVE 06/11/2011 MADL MANUFACTURING PROCESS TECHNICIAN, JIMI L 780.60 FEVER, UNSPECIFIED 06/11/2011 MADL MANUFACTURING PROCESS TECHNICIAN, JIMI L 382.00 OTITIS MEDIA ACUTE SUPPURATIVE 06/11/2011 MADL MANUFACTURING PROCESS TECHNICIAN, JIMI L 780.60 FEVER, UNSPECIFIED 06/11/2011 MADL MANUFACTURING PROCESS TECHNICIAN, JIMI L 382.00 OTITIS MEDIA ACUTE SUPPURATIVE 06/11/2011 MADL MANUFACTURING PROCESS TECHNICIAN, JIMI L 780.60 FEVER, UNSPECIFIED 06/11/2011 MADL MANUFACTURING PROCESS TECHNICIAN, JIMI L 382.00 OTITIS MEDIA ACUTE SUPPURATIVE 06/11/2011 MADL MANUFACTURING PROCESS TECHNICIAN, JIMI L 780.60 FEVER, UNSPECIFIED 06/11/2011 MADL MANUFACTURING PROCESS TECHNICIAN, JIMI L 382.00 OTITIS MEDIA ACUTE SUPPURATIVE 06/11/2011 MADL MANUFACTURING PROCESS TECHNICIAN, JIMI L 780.60 FEVER, UNSPECIFIED 06/11/2011 MADL MANUFACTURING PROCESS TECHNICIAN, JIMI L 382.00 OTITIS MEDIA ACUTE SUPPURATIVE 06/11/2011 MADL MANUFACTURING PROCESS TECHNICIAN, JIMI L 780.60 FEVER, UNSPECIFIED 06/11/2011 MADL MANUFACTURING PROCESS TECHNICIAN, JIMI L 382.00 OTITIS MEDIA ACUTE SUPPURATIVE 06/11/2011 MADL MANUFACTURING PROCESS TECHNICIAN, JIMI L 780.60 FEVER, UNSPECIFIED 06/11/2011 MADL MANUFACTURING PROCESS TECHNICIAN, JIMI L 382.00 OTITIS MEDIA ACUTE SUPPURATIVE 06/11/2011 MADL MANUFACTURING PROCESS TECHNICIAN, JIMI L 780.60 FEVER, UNSPECIFIED 08/08/2011 199.1 CANCER, NOS 08/08/2011 V72.42 Test Positive 08/08/2011 DANAE RIVERA MD 199.1 CANCER, NOS 08/08/2011 DANAE RIVERA MD V72.42 Test Positive 08/08/2011 JAMIE DERAS MD 199.1 CANCER, NOS 08/08/2011 JAMIE DERAS MD V72.42 Test Positive 08/08/2011 CELESTE MARINO MD 199.1 CANCER, NOS 08/08/2011 CELESTE MARINO MD V72.42 Test Positive 08/08/2011 199.1 CANCER, NOS 08/08/2011 V72.42 Test Positive 08/08/2011 JAMIE DERAS MD 199.1 CANCER, NOS 08/08/2011 BRAEDEN PAYNE, JAMIE Swift V72.42 Test Positive 08/08/2011 JAMIE DERAS MD 199.1 CANCER, NOS 08/08/2011 BRAEDEN PAYNE, JAMIE Swift V72.42 Test Positive 08/08/2011 JAMIE DERAS MD 199.1 CANCER, NOS 08/08/2011 JAMIE DERAS MD V72.42 Test Positive 08/08/2011 JAMIE DERAS MD 199.1 CANCER, NOS 08/08/2011 JAMIE DERAS MD V72.42 Test Positive 08/08/2011 199.1 CANCER, NOS 08/08/2011 V72.42 Test Positive 08/08/2011 199.1 CANCER, NOS 08/08/2011 V72.42 Test Positive 08/08/2011 199.1 CANCER, NOS 08/08/2011 V72.42 Test Positive 08/08/2011 199.1 CANCER, NOS 08/08/2011 V72.42 Test Positive 08/08/2011 199.1 CANCER, NOS 08/08/2011 V72.42 Test Positive 08/08/2011 199.1 CANCER, NOS 08/08/2011 V72.42 Test Positive 08/08/2011 199.1 CANCER, NOS 08/08/2011 V72.42 Test Positive 08/08/2011 199.1 CANCER, NOS 08/08/2011 V72.42 Test Positive 08/08/2011 199.1 CANCER, NOS 08/08/2011 V72.42 Test Positive 08/08/2011 199.1 CANCER, NOS 08/08/2011 V72.42 Test Positive 08/08/2011 199.1 CANCER, NOS 08/08/2011 V72.42 Test Positive 08/08/2011 199.1 CANCER, NOS 08/08/2011 V72.42 Test Positive 08/08/2011 JAMIE DERAS MD 199.1 CANCER, NOS 08/08/2011 JAMIE DERAS MD V72.42 Test Positive 08/08/2011 JAMIE DERAS MD 199.1 CANCER, NOS 08/08/2011 JAMIE DERAS MD V72.42 Test Positive 08/08/2011 JAMIE DERAS MD 199.1 CANCER, NOS 08/08/2011 JAMIE DERAS MD V72.42 Test Positive 08/08/2011 JUNIE MANUFACTURING PROCESS TECHNICIAN, PAT R 199.1 CANCER, NOS 08/08/2011 JUNIE MANUFACTURING PROCESS TECHNICIAN, PAT R V72.42 Test Positive 08/08/2011 JAMIE DERAS MD 199.1 CANCER, NOS 08/08/2011 JAMIE DERAS MD V72.42 Test Positive 08/08/2011 JAMIE DERAS MD 199.1 CANCER, NOS 08/08/2011 JAMIE DERAS MD V72.42 Test Positive 08/08/2011 CHAPMAN DO, DAYANA K 199.1 CANCER, NOS 08/08/2011 CHAPMAN DO, DAYANA K V72.42 Test Positive 08/08/2011 MADL MANUFACTURING PROCESS TECHNICIAN, JIMI L 199.1 CANCER, NOS 08/08/2011 MADL MANUFACTURING PROCESS TECHNICIAN, JIMI L V72.42 Test Positive 08/08/2011 MADL MANUFACTURING PROCESS TECHNICIAN, JIMI L 199.1 CANCER, NOS 08/08/2011 MADL MANUFACTURING PROCESS TECHNICIAN, JIMI L V72.42 Test Positive 08/08/2011 MADL MANUFACTURING PROCESS TECHNICIAN, JIMI L 199.1 CANCER, NOS 08/08/2011 MADL MANUFACTURING PROCESS TECHNICIAN, JIMI L V72.42 Test Positive 08/08/2011 MADL MANUFACTURING PROCESS TECHNICIAN, JIMI L 199.1 CANCER, NOS 08/08/2011 MADL MANUFACTURING PROCESS TECHNICIAN, JIMI L V72.42 Test Positive 08/08/2011 MADL MANUFACTURING PROCESS TECHNICIAN, JIMI L 199.1 CANCER, NOS 08/08/2011 MADL MANUFACTURING PROCESS TECHNICIAN, JIMI L V72.42 Test Positive 08/08/2011 MADL MANUFACTURING PROCESS TECHNICIAN, JIMI L 199.1 CANCER, NOS 08/08/2011 MADL MANUFACTURING PROCESS TECHNICIAN, JIMI L V72.42 Test Positive 08/08/2011 MADL MANUFACTURING PROCESS TECHNICIAN, JIMI L 199.1 CANCER, NOS 08/08/2011 MADL MANUFACTURING PROCESS TECHNICIAN, JIMI L V72.42 Test Positive 08/08/2011 CHAPMAN DO, DAYANA K 199.1 CANCER, NOS 08/08/2011 CHAPMAN DO, DAYANA K V72.42 Test Positive 08/08/2011 CHAPMAN DO, DAYANA K 199.1 CANCER, NOS 08/08/2011 CHAPMAN DO, DAYANA K V72.42 Test Positive 08/08/2011 CHAPMAN DO, DAYANA K 199.1 CANCER, NOS 08/08/2011 CHAPMAN DO, DAYANA K V72.42 Test Positive 08/08/2011 MADL MANUFACTURING PROCESS TECHNICIAN, JIMI L 199.1 CANCER, NOS 08/08/2011 MADL MANUFACTURING PROCESS TECHNICIAN, JIMI L V72.42 Test Positive 08/08/2011 CHAPMAN DO, DAYANA K 199.1 CANCER, NOS 08/08/2011 CHAPMAN DO, DAYANA K V72.42 Test Positive 08/08/2011 CHAPMAN DO, DAYANA K 199.1 CANCER, NOS 08/08/2011 CHAPMAN DO, DAYANA K V72.42 Test Positive 08/08/2011 MADL MANUFACTURING PROCESS TECHNICIAN, JIMI L 199.1 CANCER, NOS 08/08/2011 MADL MANUFACTURING PROCESS TECHNICIAN, JIMI L V72.42 Test Positive 08/08/2011 MADL MANUFACTURING PROCESS TECHNICIAN, JIMI L 199.1 CANCER, NOS 08/08/2011 MADL MANUFACTURING PROCESS TECHNICIAN, JIMI L V72.42 Test Positive 08/08/2011 MADL MANUFACTURING PROCESS TECHNICIAN, JIMI L 199.1 CANCER, NOS 08/08/2011 MADL MANUFACTURING PROCESS TECHNICIAN, JIMI L V72.42 Test Positive 08/08/2011 MADL MANUFACTURING PROCESS TECHNICIAN, JIMI L 199.1 CANCER, NOS 08/08/2011 MADL MANUFACTURING PROCESS TECHNICIAN, JIMI L V72.42 Test Positive 08/08/2011 MADL MANUFACTURING PROCESS TECHNICIAN, JIMI L 199.1 CANCER, NOS 08/08/2011 MADL MANUFACTURING PROCESS TECHNICIAN, JIMI L V72.42 Test Positive 08/08/2011 MADL MANUFACTURING PROCESS TECHNICIAN, JIMI L 199.1 CANCER, NOS 08/08/2011 MADL MANUFACTURING PROCESS TECHNICIAN, JIMI L V72.42 Test Positive 08/08/2011 MADL MANUFACTURING PROCESS TECHNICIAN, JIMI L 199.1 CANCER, NOS 08/08/2011 MADL MANUFACTURING PROCESS TECHNICIAN, JIMI L V72.42 Test Positive 08/08/2011 MADL MANUFACTURING PROCESS TECHNICIAN, JIMI L 199.1 CANCER, NOS 08/08/2011 MADL MANUFACTURING PROCESS TECHNICIAN, JIMI L V72.42 Test Positive 08/08/2011 MADL MANUFACTURING PROCESS TECHNICIAN, JIMI L 199.1 CANCER, NOS 08/08/2011 MADL MANUFACTURING PROCESS TECHNICIAN, JIMI L V72.42 Test Positive 08/08/2011 MADL MANUFACTURING PROCESS TECHNICIAN, JIMI L 199.1 CANCER, NOS 08/08/2011 MADL MANUFACTURING PROCESS TECHNICIAN, JIMI L V72.42 Test Positive 08/08/2011 MADL MANUFACTURING PROCESS TECHNICIAN, JIMI L 199.1 CANCER, NOS 08/08/2011 MADL MANUFACTURING PROCESS TECHNICIAN, JIMI L V72.42 Test Positive 08/08/2011 MADL MANUFACTURING PROCESS TECHNICIAN, JIMI L 199.1 CANCER, NOS 08/08/2011 MADL MANUFACTURING PROCESS TECHNICIAN, JIMI L V72.42 Test Positive 08/08/2011 MADL MANUFACTURING PROCESS TECHNICIAN, JIMI L 199.1 CANCER, NOS 08/08/2011 MADL MANUFACTURING PROCESS TECHNICIAN, JIMI L V72.42 Test Positive 08/08/2011 MADL MANUFACTURING PROCESS TECHNICIAN, JIMI L 199.1 CANCER, NOS 08/08/2011 MADL MANUFACTURING PROCESS TECHNICIAN, JIMI L V72.42 Test Positive 08/08/2011 MADL MANUFACTURING PROCESS TECHNICIAN, JIMI L 199.1 CANCER, NOS 08/08/2011 MADL MANUFACTURING PROCESS TECHNICIAN, JIMI L V72.42 Test Positive 08/08/2011 MADL MANUFACTURING PROCESS TECHNICIAN, JIMI L 199.1 CANCER, NOS 08/08/2011 MADL MANUFACTURING PROCESS TECHNICIAN, JIMI L V72.42 Test Positive 09/11/2011 Ot 632 02/05/2012 278.00 OBESITY 02/05/2012 MIGUEL PAYNE, DANAE 278.00 OBESITY 02/05/2012 JAMIE DERAS MD 278.00 OBESITY 02/05/2012 CELESTE MARINO MD 278.00 OBESITY 02/05/2012 278.00 OBESITY 02/05/2012 JAMIE DERAS MD 278.00 OBESITY 02/05/2012 JAMIE DERAS MD 278.00 OBESITY 02/05/2012 JAMIE DERAS MD 278.00 OBESITY 02/05/2012 JAMIE DERAS MD 278.00 OBESITY 02/05/2012 278.00 OBESITY 02/05/2012 278.00 OBESITY 02/05/2012 278.00 OBESITY 02/05/2012 278.00 OBESITY 02/05/2012 278.00 OBESITY 02/05/2012 278.00 OBESITY 02/05/2012 278.00 OBESITY 02/05/2012 278.00 OBESITY 02/05/2012 278.00 OBESITY 02/05/2012 278.00 OBESITY 02/05/2012 278.00 OBESITY 02/05/2012 278.00 OBESITY 02/05/2012 JAMIE DERAS MD 278.00 OBESITY 02/05/2012 JAMIE DERAS MD 278.00 OBESITY 02/05/2012 JAMIE DERAS MD 278.00 OBESITY 02/05/2012 JUNIE MANUFACTURING PROCESS TECHNICIAN, PAT R 278.00 OBESITY 02/05/2012 JAMIE DERAS MD 278.00 OBESITY 02/05/2012 JAMIE DERAS MD 278.00 OBESITY 02/05/2012 CHAPMAN DO, DAYANA K 278.00 OBESITY 02/05/2012 MADL MANUFACTURING PROCESS TECHNICIAN, JIMI L 278.00 OBESITY 02/05/2012 MADL MANUFACTURING PROCESS TECHNICIAN, JIMI L 278.00 OBESITY 02/05/2012 MADL MANUFACTURING PROCESS TECHNICIAN, JIMI L 278.00 OBESITY 02/05/2012 MADL MANUFACTURING PROCESS TECHNICIAN, JIMI L 278.00 OBESITY 02/05/2012 MADL MANUFACTURING PROCESS TECHNICIAN, JIMI L 278.00 OBESITY 02/05/2012 MADL MANUFACTURING PROCESS TECHNICIAN, JIMI L 278.00 OBESITY 02/05/2012 MADL MANUFACTURING PROCESS TECHNICIAN, JIMI L 278.00 OBESITY 02/05/2012 CHAPMAN DO, DAYANA K 278.00 OBESITY 02/05/2012 CHAPMAN DO, DAYANA K 278.00 OBESITY 02/05/2012 CHAPMAN DO, DAYANA K 278.00 OBESITY 02/05/2012 MADL MANUFACTURING PROCESS TECHNICIAN, JIMI L 278.00 OBESITY 02/05/2012 CHAPMAN DO, DAYANA K 278.00 OBESITY 02/05/2012 CHAPMAN DO, DAYANA K 278.00 OBESITY 02/05/2012 MADL MANUFACTURING PROCESS TECHNICIAN, JIMI L 278.00 OBESITY 02/05/2012 MADL MANUFACTURING PROCESS TECHNICIAN, JIMI L 278.00 OBESITY 02/05/2012 MADL MANUFACTURING PROCESS TECHNICIAN, JIMI L 278.00 OBESITY 02/05/2012 MADL MANUFACTURING PROCESS TECHNICIAN, JIMI L 278.00 OBESITY 02/05/2012 MADL MANUFACTURING PROCESS TECHNICIAN, JIMI L 278.00 OBESITY 02/05/2012 MADL MANUFACTURING PROCESS TECHNICIAN, JIMI L 278.00 OBESITY 02/05/2012 MADL MANUFACTURING PROCESS TECHNICIAN, JIMI L 278.00 OBESITY 02/05/2012 MADL MANUFACTURING PROCESS TECHNICIAN, JIMI L 278.00 OBESITY 02/05/2012 MADL MANUFACTURING PROCESS TECHNICIAN, JIMI L 278.00 OBESITY 02/05/2012 MADL MANUFACTURING PROCESS TECHNICIAN, JIMI L 278.00 OBESITY 02/05/2012 MADL MANUFACTURING PROCESS TECHNICIAN, JIMI L 278.00 OBESITY 02/05/2012 MADL MANUFACTURING PROCESS TECHNICIAN, JIMI L 278.00 OBESITY 02/05/2012 MADL MANUFACTURING PROCESS TECHNICIAN, JIMI L 278.00 OBESITY 02/05/2012 MADL MANUFACTURING PROCESS TECHNICIAN, JIMI L 278.00 OBESITY 02/05/2012 MADL MANUFACTURING PROCESS TECHNICIAN, JIMI L 278.00 OBESITY 02/05/2012 MADL MANUFACTURING PROCESS TECHNICIAN, JIMI L 278.00 OBESITY 06/05/2012 DANAE RIVERA MD 724.1 upper back pain (between shoulder blades) 06/05/2012 DANAE RIVERA MD V25.02 Contraceptives 06/05/2012 JAMIE DERAS MD 724.1 upper back pain (between shoulder blades) 06/05/2012 JAMIE DERAS MD V25.02 Contraceptives 06/05/2012 CELESTE MARINO MD 724.1 upper back pain (between shoulder blades) 06/05/2012 CELESTE MARINO MD V25.02 Contraceptives 06/05/2012 724.1 upper back pain (between shoulder blades) 06/05/2012 V25.02 Contraceptives 06/05/2012 JAMIE DERAS MD 724.1 upper back pain (between shoulder blades) 06/05/2012 JAMIE DERAS MD V25.02 Contraceptives 06/05/2012 JAMIE DERAS MD 724.1 upper back pain (between shoulder blades) 06/05/2012 JAMIE DERAS MD V25.02 Contraceptives 06/05/2012 JAMIE DERAS MD 724.1 upper back pain (between shoulder blades) 06/05/2012 JAMIE DERAS MD V25.02 Contraceptives 06/05/2012 JAMIE DERAS MD 724.1 upper back pain (between shoulder blades) 06/05/2012 JAMIE DERAS MD V25.02 Contraceptives 06/05/2012 724.1 upper back pain (between shoulder blades) 06/05/2012 V25.02 Contraceptives 06/05/2012 724.1 upper back pain (between shoulder blades) 06/05/2012 V25.02 Contraceptives 06/05/2012 724.1 upper back pain (between shoulder blades) 06/05/2012 V25.02 Contraceptives 06/05/2012 724.1 upper back pain (between shoulder blades) 06/05/2012 V25.02 Contraceptives 06/05/2012 724.1 upper back pain (between shoulder blades) 06/05/2012 V25.02 Contraceptives 06/05/2012 724.1 upper back pain (between shoulder blades) 06/05/2012 V25.02 Contraceptives 06/05/2012 724.1 upper back pain (between shoulder blades) 06/05/2012 V25.02 Contraceptives 06/05/2012 724.1 upper back pain (between shoulder blades) 06/05/2012 V25.02 Contraceptives 06/05/2012 724.1 upper back pain (between shoulder blades) 06/05/2012 V25.02 Contraceptives 06/05/2012 724.1 upper back pain (between shoulder blades) 06/05/2012 V25.02 Contraceptives 06/05/2012 724.1 upper back pain (between shoulder blades) 06/05/2012 V25.02 Contraceptives 06/05/2012 724.1 upper back pain (between shoulder blades) 06/05/2012 V25.02 Contraceptives 06/05/2012 JAMIE DERAS MD 724.1 upper back pain (between shoulder blades) 06/05/2012 JAMIE DERAS MD V25.02 Contraceptives 06/05/2012 JAMIE DERAS MD 724.1 upper back pain (between shoulder blades) 06/05/2012 JAMIE DERAS MD V25.02 Contraceptives 06/05/2012 JAMIE DERAS MD 724.1 upper back pain (between shoulder blades) 06/05/2012 JAMIE DERAS MD V25.02 Contraceptives 06/05/2012 JUNIE MITCHELL PAT R 724.1 upper back pain (between shoulder blades) 06/05/2012 JUNIE MITCHELL PAT R V25.02 Contraceptives 06/05/2012 JAMIE DERAS MD 724.1 upper back pain (between shoulder blades) 06/05/2012 JAMIE DERAS MD V25.02 Contraceptives 06/05/2012 JAMIE DERAS MD 724.1 upper back pain (between shoulder blades) 06/05/2012 JAMIE DERAS MD V25.02 Contraceptives 06/05/2012 DAYANA CHAPMAN DO K 724.1 upper back pain (between shoulder blades) 06/05/2012 ADELA CLARK DAYANA K V25.02 Contraceptives 06/05/2012 MADL MANUFACTURING PROCESS TECHNICIAN, JIMI L 724.1 upper back pain (between shoulder blades) 06/05/2012 MADL MANUFACTURING PROCESS TECHNICIAN, JIMI L V25.02 Contraceptives 06/05/2012 MADL MANUFACTURING PROCESS TECHNICIAN, JIMI L 724.1 upper back pain (between shoulder blades) 06/05/2012 MADL MANUFACTURING PROCESS TECHNICIAN, JIMI L V25.02 Contraceptives 06/05/2012 MADL MANUFACTURING PROCESS TECHNICIAN, JIMI L 724.1 upper back pain (between shoulder blades) 06/05/2012 MADL MANUFACTURING PROCESS TECHNICIAN, JIMI L V25.02 Contraceptives 06/05/2012 MADL MANUFACTURING PROCESS TECHNICIAN, JIMI L 724.1 upper back pain (between shoulder blades) 06/05/2012 MADL MANUFACTURING PROCESS TECHNICIAN, JIMI L V25.02 Contraceptives 06/05/2012 MADL MANUFACTURING PROCESS TECHNICIAN, JIMI L 724.1 upper back pain (between shoulder blades) 06/05/2012 MADL MANUFACTURING PROCESS TECHNICIAN, JIMI L V25.02 Contraceptives 06/05/2012 MADL MANUFACTURING PROCESS TECHNICIAN, JIMI L 724.1 upper back pain (between shoulder blades) 06/05/2012 MADL MANUFACTURING PROCESS TECHNICIAN, JIMI L V25.02 Contraceptives 06/05/2012 MADL MANUFACTURING PROCESS TECHNICIAN, JIMI L 724.1 upper back pain (between shoulder blades) 06/05/2012 MADL MANUFACTURING PROCESS TECHNICIAN, JIMI L V25.02 Contraceptives 06/05/2012 CHAPMAN DO DAYANA K 724.1 upper back pain (between shoulder blades) 06/05/2012 CHAPMAN DO, DAYANA K V25.02 Contraceptives 06/05/2012 CHAPMAN DO, DAYANA K 724.1 upper back pain (between shoulder blades) 06/05/2012 CHAPMAN DO, DAYANA K V25.02 Contraceptives 06/05/2012 CHAPMAN DO, DAYANA K 724.1 upper back pain (between shoulder blades) 06/05/2012 CAHPMAN DO, DAYANA K V25.02 Contraceptives 06/05/2012 MADL MANUFACTURING PROCESS TECHNICIAN, JIMI L 724.1 upper back pain (between shoulder blades) 06/05/2012 MADL MANUFACTURING PROCESS TECHNICIAN, JIMI L V25.02 Contraceptives 06/05/2012 CHAPMAN DO, DAYANA K 724.1 upper back pain (between shoulder blades) 06/05/2012 CHAPMAN DO, DAYANA K V25.02 Contraceptives 06/05/2012 CHAPMAN DO, DAYANA K 724.1 upper back pain (between shoulder blades) 06/05/2012 CHAPMAN DO, DAYANA K V25.02 Contraceptives 06/05/2012 MADL MANUFACTURING PROCESS TECHNICIAN, JIMI L 724.1 upper back pain (between shoulder blades) 06/05/2012 MADL MANUFACTURING PROCESS TECHNICIAN, JIMI L V25.02 Contraceptives 06/05/2012 MADL MANUFACTURING PROCESS TECHNICIAN, JIMI L 724.1 upper back pain (between shoulder blades) 06/05/2012 MADL MANUFACTURING PROCESS TECHNICIAN, JIMI L V25.02 Contraceptives 06/05/2012 MADL MANUFACTURING PROCESS TECHNICIAN, JIMI L 724.1 upper back pain (between shoulder blades) 06/05/2012 MADL MANUFACTURING PROCESS TECHNICIAN, JIMI L V25.02 Contraceptives 06/05/2012 MADL MANUFACTURING PROCESS TECHNICIAN, JIMI L 724.1 upper back pain (between shoulder blades) 06/05/2012 MADL MANUFACTURING PROCESS TECHNICIAN, JIMI L V25.02 Contraceptives 06/05/2012 MADL MANUFACTURING PROCESS TECHNICIAN, JIMI L 724.1 upper back pain (between shoulder blades) 06/05/2012 MADL MANUFACTURING PROCESS TECHNICIAN, JIMI L V25.02 Contraceptives 06/05/2012 MADL MANUFACTURING PROCESS TECHNICIAN, JIMI L 724.1 upper back pain (between shoulder blades) 06/05/2012 MADL MANUFACTURING PROCESS TECHNICIAN, JIMI L V25.02 Contraceptives 06/05/2012 MADL MANUFACTURING PROCESS TECHNICIAN, JIMI L 724.1 upper back pain (between shoulder blades) 06/05/2012 MADL MANUFACTURING PROCESS TECHNICIAN, JIMI L V25.02 Contraceptives 06/05/2012 MADL MANUFACTURING PROCESS TECHNICIAN, JIMI L 724.1 upper back pain (between shoulder blades) 06/05/2012 MADL MANUFACTURING PROCESS TECHNICIAN, JIMI L V25.02 Contraceptives 06/05/2012 MADL MANUFACTURING PROCESS TECHNICIAN, JIMI L 724.1 upper back pain (between shoulder blades) 06/05/2012 MADL MANUFACTURING PROCESS TECHNICIAN, JMII L V25.02 Contraceptives 06/05/2012 MADL MANUFACTURING PROCESS TECHNICIAN, JIMI L 724.1 upper back pain (between shoulder blades) 06/05/2012 MADL MANUFACTURING PROCESS TECHNICIAN, JIMI L V25.02 Contraceptives 06/05/2012 MADL MANUFACTURING PROCESS TECHNICIAN, JIIM L 724.1 upper back pain (between shoulder blades) 06/05/2012 MADL MANUFACTURING PROCESS TECHNICIAN, JIMI L V25.02 Contraceptives 06/05/2012 MADL MANUFACTURING PROCESS TECHNICIAN, JIMI L 724.1 upper back pain (between shoulder blades) 06/05/2012 MADL MANUFACTURING PROCESS TECHNICIAN, JIMI L V25.02 Contraceptives 06/05/2012 MADL MANUFACTURING PROCESS TECHNICIAN, JIMI L 724.1 upper back pain (between shoulder blades) 06/05/2012 MADL MANUFACTURING PROCESS TECHNICIAN, JIMI L V25.02 Contraceptives 06/05/2012 MADL MANUFACTURING PROCESS TECHNICIAN, JIMI L 724.1 upper back pain (between shoulder blades) 06/05/2012 MADL MANUFACTURING PROCESS TECHNICIAN, JIMI L V25.02 Contraceptives 06/05/2012 MADL MANUFACTURING PROCESS TECHNICIAN, JIMI L 724.1 upper back pain (between shoulder blades) 06/05/2012 MADL MANUFACTURING PROCESS TECHNICIAN, JIMI L V25.02 Contraceptives 06/05/2012 MADL MANUFACTURING PROCESS TECHNICIAN, JIMI L 724.1 upper back pain (between shoulder blades) 06/05/2012 MADL MANUFACTURING PROCESS TECHNICIAN, JIMI L V25.02 Contraceptives 07/21/2012 Ot 616.0 07/21/2012 Ot 617.0 07/21/2012 Ot V10.44 08/01/2012 Ot 415.19 08/01/2012 Ot 564.00 08/01/2012 Ot 599.0 08/01/2012 Ot 789.00 08/01/2012 Ot V10.44 08/01/2012 Ot V88.01 08/03/2012 JAMIE DERAS MD 415.19 PULMONARY EMBOLUS 08/03/2012 CELESTE MARINO MD 415.19 ARTERIAL THROMBOSIS PULMONARY 08/03/2012 415.19 ARTERIAL THROMBOSIS PULMONARY 08/03/2012 JAMIE DERAS MD 415.19 ARTERIAL THROMBOSIS PULMONARY 08/03/2012 JAMIE DERAS MD 415.19 ARTERIAL THROMBOSIS PULMONARY 08/03/2012 JAMIE DERAS MD 415.19 ARTERIAL THROMBOSIS PULMONARY 08/03/2012 JAMIE DERAS MD 415.19 ARTERIAL THROMBOSIS PULMONARY 08/03/2012 415.19 ARTERIAL THROMBOSIS PULMONARY 08/03/2012 415.19 ARTERIAL THROMBOSIS PULMONARY 08/03/2012 415.19 ARTERIAL THROMBOSIS PULMONARY 08/03/2012 415.19 ARTERIAL THROMBOSIS PULMONARY 08/03/2012 415.19 ARTERIAL THROMBOSIS PULMONARY 08/03/2012 415.19 ARTERIAL THROMBOSIS PULMONARY 08/03/2012 415.19 ARTERIAL THROMBOSIS PULMONARY 08/03/2012 415.19 ARTERIAL THROMBOSIS PULMONARY 08/03/2012 415.19 ARTERIAL THROMBOSIS PULMONARY 08/03/2012 415.19 ARTERIAL THROMBOSIS PULMONARY 08/03/2012 415.19 ARTERIAL THROMBOSIS PULMONARY 08/03/2012 415.19 ARTERIAL THROMBOSIS PULMONARY 08/03/2012 JAMIE DERAS MD 415.19 ARTERIAL THROMBOSIS PULMONARY 08/03/2012 JAMIE DERAS MD 415.19 ARTERIAL THROMBOSIS PULMONARY 08/03/2012 JAMIE DERAS MD 415.19 ARTERIAL THROMBOSIS PULMONARY 08/03/2012 JUNIE MITCHELL PAT R 415.19 ARTERIAL THROMBOSIS PULMONARY 08/03/2012 JAMIE DERAS MD 415.19 ARTERIAL THROMBOSIS PULMONARY 08/03/2012 JAMIE DERAS MD 415.19 ARTERIAL THROMBOSIS PULMONARY 08/03/2012 CHAPMAN DO, DAYANA K 415.19 ARTERIAL THROMBOSIS PULMONARY 08/03/2012 MADL MANUFACTURING PROCESS TECHNICIAN, JIMI L 415.19 ARTERIAL THROMBOSIS PULMONARY 08/03/2012 MADL MANUFACTURING PROCESS TECHNICIAN, JIMI L 415.19 ARTERIAL THROMBOSIS PULMONARY 08/03/2012 MADL MANUFACTURING PROCESS TECHNICIAN, JIMI L 415.19 ARTERIAL THROMBOSIS PULMONARY 08/03/2012 MADL MANUFACTURING PROCESS TECHNICIAN, JIMI L 415.19 ARTERIAL THROMBOSIS PULMONARY 08/03/2012 MADL MANUFACTURING PROCESS TECHNICIAN, JIMI L 415.19 ARTERIAL THROMBOSIS PULMONARY 08/03/2012 MADL MANUFACTURING PROCESS TECHNICIAN, JIMI L 415.19 ARTERIAL THROMBOSIS PULMONARY 08/03/2012 MADL MANUFACTURING PROCESS TECHNICIAN, JIMI L 415.19 ARTERIAL THROMBOSIS PULMONARY 08/03/2012 CHAPMAN DO, DAYANA K 415.19 ARTERIAL THROMBOSIS PULMONARY 08/03/2012 CHAPMAN DO, DAYANA K 415.19 ARTERIAL THROMBOSIS PULMONARY 08/03/2012 CHAPMAN DO, DAYANA K 415.19 ARTERIAL THROMBOSIS PULMONARY 08/03/2012 MADL MANUFACTURING PROCESS TECHNICIAN, JIMI L 415.19 ARTERIAL THROMBOSIS PULMONARY 08/03/2012 CHAPMAN DO, DAYANA K 415.19 ARTERIAL THROMBOSIS PULMONARY 08/03/2012 CHAPMAN DO, DAYANA K 415.19 ARTERIAL THROMBOSIS PULMONARY 08/03/2012 MADL MANUFACTURING PROCESS TECHNICIAN, JIMI L 415.19 ARTERIAL THROMBOSIS PULMONARY 08/03/2012 MADL MANUFACTURING PROCESS TECHNICIAN, JIMI L 415.19 ARTERIAL THROMBOSIS PULMONARY 08/03/2012 MADL MANUFACTURING PROCESS TECHNICIAN, JIMI L 415.19 ARTERIAL THROMBOSIS PULMONARY 08/03/2012 MADL MANUFACTURING PROCESS TECHNICIAN, JIMI L 415.19 ARTERIAL THROMBOSIS PULMONARY 08/03/2012 MADL MANUFACTURING PROCESS TECHNICIAN, JIMI L 415.19 ARTERIAL THROMBOSIS PULMONARY 08/03/2012 MADL MANUFACTURING PROCESS TECHNICIAN, JIMI L 415.19 ARTERIAL THROMBOSIS PULMONARY 08/03/2012 MADL MANUFACTURING PROCESS TECHNICIAN, JIMI L 415.19 ARTERIAL THROMBOSIS PULMONARY 08/03/2012 MADL MANUFACTURING PROCESS TECHNICIAN, JIMI L 415.19 ARTERIAL THROMBOSIS PULMONARY 08/03/2012 MADL MANUFACTURING PROCESS TECHNICIAN, JIMI L 415.19 ARTERIAL THROMBOSIS PULMONARY 08/03/2012 MADL MANUFACTURING PROCESS TECHNICIAN, JIMI L 415.19 ARTERIAL THROMBOSIS PULMONARY 08/03/2012 MADL MANUFACTURING PROCESS TECHNICIAN, JIMI L 415.19 ARTERIAL THROMBOSIS PULMONARY 08/03/2012 MADL MANUFACTURING PROCESS TECHNICIAN, JIMI L 415.19 ARTERIAL THROMBOSIS PULMONARY 08/03/2012 MADL MANUFACTURING PROCESS TECHNICIAN, JIMI L 415.19 ARTERIAL THROMBOSIS PULMONARY 08/03/2012 MADL MANUFACTURING PROCESS TECHNICIAN, JIMI L 415.19 ARTERIAL THROMBOSIS PULMONARY 08/03/2012 MADL MANUFACTURING PROCESS TECHNICIAN, JIMI L 415.19 ARTERIAL THROMBOSIS PULMONARY 08/03/2012 MADL MANUFACTURING PROCESS TECHNICIAN, JIMI L 415.19 ARTERIAL THROMBOSIS PULMONARY 08/14/2012 JAMIE DERAS MD 729.5 PAIN IN LIMB 08/14/2012 CELESTE MARINO MD 729.5 PAIN IN LIMB 08/14/2012 729.5 PAIN IN LIMB 08/14/2012 JAMIE DERAS MD 729.5 PAIN IN LIMB 08/14/2012 JAMIE DERAS MD 729.5 PAIN IN LIMB 08/14/2012 JAMIE DERAS MD 729.5 PAIN IN LIMB 08/14/2012 JAMIE DERAS MD 729.5 PAIN IN LIMB 08/14/2012 729.5 PAIN IN LIMB 08/14/2012 729.5 PAIN IN LIMB 08/14/2012 729.5 PAIN IN LIMB 08/14/2012 729.5 PAIN IN LIMB 08/14/2012 729.5 PAIN IN LIMB 08/14/2012 729.5 PAIN IN LIMB 08/14/2012 729.5 PAIN IN LIMB 08/14/2012 729.5 PAIN IN LIMB 08/14/2012 729.5 PAIN IN LIMB 08/14/2012 729.5 PAIN IN LIMB 08/14/2012 729.5 PAIN IN LIMB 08/14/2012 729.5 PAIN IN LIMB 08/14/2012 JAMIE DERAS MD 729.5 PAIN IN LIMB 08/14/2012 JAMIE DERAS MD 729.5 PAIN IN LIMB 08/14/2012 JAMIE DERAS MD 729.5 PAIN IN LIMB 08/14/2012 JUNIE MITCHELL, PAT R 729.5 PAIN IN LIMB 08/14/2012 JAMIE DERAS MD 729.5 PAIN IN LIMB 08/14/2012 JAMIE DERAS MD 729.5 PAIN IN LIMB 08/14/2012 CHAPMAN DO, DAYANA K 729.5 PAIN IN LIMB 08/14/2012 MADL MANUFACTURING PROCESS TECHNICIAN, JIMI L 729.5 PAIN IN LIMB 08/14/2012 MADL MANUFACTURING PROCESS TECHNICIAN, JIMI L 729.5 PAIN IN LIMB 08/14/2012 MADL MANUFACTURING PROCESS TECHNICIAN, JIMI L 729.5 PAIN IN LIMB 08/14/2012 MADL MANUFACTURING PROCESS TECHNICIAN, JIMI L 729.5 PAIN IN LIMB 08/14/2012 MADL MANUFACTURING PROCESS TECHNICIAN, JIMI L 729.5 PAIN IN LIMB 08/14/2012 MADL MANUFACTURING PROCESS TECHNICIAN, JIMI L 729.5 PAIN IN LIMB 08/14/2012 MADL MANUFACTURING PROCESS TECHNICIAN, JIMI L 729.5 PAIN IN LIMB 08/14/2012 CHAPMAN DO, DAYANA K 729.5 PAIN IN LIMB 08/14/2012 CHAPMAN DO, DAYANA K 729.5 PAIN IN LIMB 08/14/2012 CHAPMAN DO, DAYANA K 729.5 PAIN IN LIMB 08/14/2012 MADL MANUFACTURING PROCESS TECHNICIAN, JIMI L 729.5 PAIN IN LIMB 08/14/2012 CHAPMAN DO, DAYANA K 729.5 PAIN IN LIMB 08/14/2012 CHAPMAN DO, DAYANA K 729.5 PAIN IN LIMB 08/14/2012 MADL MANUFACTURING PROCESS TECHNICIAN, JIMI L 729.5 PAIN IN LIMB 08/14/2012 MADL MANUFACTURING PROCESS TECHNICIAN, JIMI L 729.5 PAIN IN LIMB 08/14/2012 MADL MANUFACTURING PROCESS TECHNICIAN, JIMI L 729.5 PAIN IN LIMB 08/14/2012 MADL MANUFACTURING PROCESS TECHNICIAN, JIMI L 729.5 PAIN IN LIMB 08/14/2012 MADL MANUFACTURING PROCESS TECHNICIAN, JIMI L 729.5 PAIN IN LIMB 08/14/2012 MADL MANUFACTURING PROCESS TECHNICIAN, JIMI L 729.5 PAIN IN LIMB 08/14/2012 MADL MANUFACTURING PROCESS TECHNICIAN, JIMI L 729.5 PAIN IN LIMB 08/14/2012 MADL MANUFACTURING PROCESS TECHNICIAN, JIMI L 729.5 PAIN IN LIMB 08/14/2012 MADL MANUFACTURING PROCESS TECHNICIAN, JIMI L 729.5 PAIN IN LIMB 08/14/2012 MADL MANUFACTURING PROCESS TECHNICIAN, JIMI L 729.5 PAIN IN LIMB 08/14/2012 MADL MANUFACTURING PROCESS TECHNICIAN, JIMI L 729.5 PAIN IN LIMB 08/14/2012 MADL MANUFACTURING PROCESS TECHNICIAN, JIMI L 729.5 PAIN IN LIMB 08/14/2012 MADL MANUFACTURING PROCESS TECHNICIAN, JIMI L 729.5 PAIN IN LIMB 08/14/2012 MADL MANUFACTURING PROCESS TECHNICIAN, JIMI L 729.5 PAIN IN LIMB 08/14/2012 MADL MANUFACTURING PROCESS TECHNICIAN, JIMI L 729.5 PAIN IN LIMB 08/14/2012 MADL MANUFACTURING PROCESS TECHNICIAN, JIMI L 729.5 PAIN IN LIMB 08/18/2012 CELESTE MARINO MD 599.0 URINARY TRACT INFECTION 08/18/2012 CELESTE MARINO MD 782.3 soft tissue swelling (non-joint) [Sx] 08/18/2012 599.0 URINARY TRACT INFECTION 08/18/2012 782.3 soft tissue swelling (non-joint) [Sx] 08/18/2012 JAMIE DERAS MD 599.0 URINARY TRACT INFECTION 08/18/2012 JAMIE DERAS MD 782.3 soft tissue swelling (non-joint) [Sx] 08/18/2012 JAIME DERAS MD 599.0 URINARY TRACT INFECTION 08/18/2012 JAMIE DERAS MD 782.3 soft tissue swelling (non-joint) [Sx] 08/18/2012 JAMIE DERAS MD 599.0 URINARY TRACT INFECTION 08/18/2012 JAMIE DERAS MD 782.3 soft tissue swelling (non-joint) [Sx] 08/18/2012 JAMIE DERAS MD 599.0 URINARY TRACT INFECTION 08/18/2012 JAMIE DERAS MD 782.3 soft tissue swelling (non-joint) [Sx] 08/18/2012 599.0 URINARY TRACT INFECTION 08/18/2012 782.3 soft tissue swelling (non-joint) [Sx] 08/18/2012 599.0 URINARY TRACT INFECTION 08/18/2012 782.3 soft tissue swelling (non-joint) [Sx] 08/18/2012 599.0 URINARY TRACT INFECTION 08/18/2012 782.3 soft tissue swelling (non-joint) [Sx] 08/18/2012 599.0 URINARY TRACT INFECTION 08/18/2012 782.3 soft tissue swelling (non-joint) [Sx] 08/18/2012 599.0 URINARY TRACT INFECTION 08/18/2012 782.3 soft tissue swelling (non-joint) [Sx] 08/18/2012 599.0 URINARY TRACT INFECTION 08/18/2012 782.3 soft tissue swelling (non-joint) [Sx] 08/18/2012 599.0 URINARY TRACT INFECTION 08/18/2012 782.3 soft tissue swelling (non-joint) [Sx] 08/18/2012 599.0 URINARY TRACT INFECTION 08/18/2012 782.3 soft tissue swelling (non-joint) [Sx] 08/18/2012 599.0 URINARY TRACT INFECTION 08/18/2012 782.3 soft tissue swelling (non-joint) [Sx] 08/18/2012 599.0 URINARY TRACT INFECTION 08/18/2012 782.3 soft tissue swelling (non-joint) [Sx] 08/18/2012 599.0 URINARY TRACT INFECTION 08/18/2012 782.3 soft tissue swelling (non-joint) [Sx] 08/18/2012 599.0 URINARY TRACT INFECTION 08/18/2012 782.3 soft tissue swelling (non-joint) [Sx] 08/18/2012 JAMIE DERAS MD 599.0 URINARY TRACT INFECTION 08/18/2012 JAMIE DERAS MD 782.3 soft tissue swelling (non-joint) [Sx] 08/18/2012 JAMIE DERAS MD 599.0 URINARY TRACT INFECTION 08/18/2012 JAMIE DERAS MD 782.3 soft tissue swelling (non-joint) [Sx] 08/18/2012 JAMIE DERAS MD 599.0 URINARY TRACT INFECTION 08/18/2012 JAMIE DERAS MD 782.3 soft tissue swelling (non-joint) [Sx] 08/18/2012 JUNIE MANUFACTURING PROCESS TECHNICIAN, PAT R 599.0 URINARY TRACT INFECTION 08/18/2012 JUNIE MANUFACTURING PROCESS TECHNICIAN, PAT R 782.3 soft tissue swelling (non-joint) [Sx] 08/18/2012 JAMIE DERAS MD 599.0 URINARY TRACT INFECTION 08/18/2012 JAMIE DERAS MD 782.3 soft tissue swelling (non-joint) [Sx] 08/18/2012 JAMIE DERAS MD 599.0 URINARY TRACT INFECTION 08/18/2012 JAMIE DERAS MD 782.3 soft tissue swelling (non-joint) [Sx] 08/18/2012 CHAPMAN DO, DAYANA K 599.0 URINARY TRACT INFECTION 08/18/2012 CHAPMAN DO, DAYANA K 782.3 soft tissue swelling (non-joint) [Sx] 08/18/2012 MADL MANUFACTURING PROCESS TECHNICIAN, JIMI L 599.0 URINARY TRACT INFECTION 08/18/2012 MADL MANUFACTURING PROCESS TECHNICIAN, JIMI L 782.3 soft tissue swelling (non-joint) [Sx] 08/18/2012 MADL MANUFACTURING PROCESS TECHNICIAN, JIMI L 599.0 URINARY TRACT INFECTION 08/18/2012 MADL MANUFACTURING PROCESS TECHNICIAN, JIMI L 782.3 soft tissue swelling (non-joint) [Sx] 08/18/2012 MADL MANUFACTURING PROCESS TECHNICIAN, JIMI L 599.0 URINARY TRACT INFECTION 08/18/2012 MADL MANUFACTURING PROCESS TECHNICIAN, JIMI L 782.3 soft tissue swelling (non-joint) [Sx] 08/18/2012 MADL MANUFACTURING PROCESS TECHNICIAN, JIMI L 599.0 URINARY TRACT INFECTION 08/18/2012 MADL MANUFACTURING PROCESS TECHNICIAN, JIMI L 782.3 soft tissue swelling (non-joint) [Sx] 08/18/2012 MADL MANUFACTURING PROCESS TECHNICIAN, JIMI L 599.0 URINARY TRACT INFECTION 08/18/2012 MADL MANUFACTURING PROCESS TECHNICIAN, JIMI L 782.3 soft tissue swelling (non-joint) [Sx] 08/18/2012 MADL MANUFACTURING PROCESS TECHNICIAN, JIMI L 599.0 URINARY TRACT INFECTION 08/18/2012 MADL MANUFACTURING PROCESS TECHNICIAN, JIMI L 782.3 soft tissue swelling (non-joint) [Sx] 08/18/2012 MADL MANUFACTURING PROCESS TECHNICIAN, JIMI L 599.0 URINARY TRACT INFECTION 08/18/2012 MADL MANUFACTURING PROCESS TECHNICIAN, JIMI L 782.3 soft tissue swelling (non-joint) [Sx] 08/18/2012 CHAPMAN DO, DAYANA K 599.0 URINARY TRACT INFECTION 08/18/2012 CHAPMAN DO, DAYANA K 782.3 soft tissue swelling (non-joint) [Sx] 08/18/2012 CHAPMAN DO, DAYANA K 599.0 URINARY TRACT INFECTION 08/18/2012 CHAPMAN DO, DAYANA K 782.3 soft tissue swelling (non-joint) [Sx] 08/18/2012 CHAPMAN DO, DAYANA K 599.0 URINARY TRACT INFECTION 08/18/2012 CHAPMAN DO, DAYANA K 782.3 soft tissue swelling (non-joint) [Sx] 08/18/2012 MADL MANUFACTURING PROCESS TECHNICIAN, JIMI L 599.0 URINARY TRACT INFECTION 08/18/2012 MADL MANUFACTURING PROCESS TECHNICIAN, JIMI L 782.3 soft tissue swelling (non-joint) [Sx] 08/18/2012 CHAPMAN DO, DAYANA K 599.0 URINARY TRACT INFECTION 08/18/2012 CHAPMAN DO, DAYANA K 782.3 soft tissue swelling (non-joint) [Sx] 08/18/2012 CHAPMAN DO, DAYANA K 599.0 URINARY TRACT INFECTION 08/18/2012 CHAPMAN DO, DAYANA K 782.3 soft tissue swelling (non-joint) [Sx] 08/18/2012 MADL MANUFACTURING PROCESS TECHNICIAN, JIMI L 599.0 URINARY TRACT INFECTION 08/18/2012 MADL MANUFACTURING PROCESS TECHNICIAN, JIMI L 782.3 soft tissue swelling (non-joint) [Sx] 08/18/2012 MADL MANUFACTURING PROCESS TECHNICIAN, JIMI L 599.0 URINARY TRACT INFECTION 08/18/2012 MADL MANUFACTURING PROCESS TECHNICIAN, JIMI L 782.3 soft tissue swelling (non-joint) [Sx] 08/18/2012 MADL MANUFACTURING PROCESS TECHNICIAN, JIMI L 599.0 URINARY TRACT INFECTION 08/18/2012 MADL MANUFACTURING PROCESS TECHNICIAN, JIMI L 782.3 soft tissue swelling (non-joint) [Sx] 08/18/2012 MADL MANUFACTURING PROCESS TECHNICIAN, JIMI L 599.0 URINARY TRACT INFECTION 08/18/2012 MADL MANUFACTURING PROCESS TECHNICIAN, JIMI L 782.3 soft tissue swelling (non-joint) [Sx] 08/18/2012 MADL MANUFACTURING PROCESS TECHNICIAN, JIMI L 599.0 URINARY TRACT INFECTION 08/18/2012 MADL MANUFACTURING PROCESS TECHNICIAN, JIMI L 782.3 soft tissue swelling (non-joint) [Sx] 08/18/2012 MADL MANUFACTURING PROCESS TECHNICIAN, JIMI L 599.0 URINARY TRACT INFECTION 08/18/2012 MADL MANUFACTURING PROCESS TECHNICIAN, JIMI L 782.3 soft tissue swelling (non-joint) [Sx] 08/18/2012 MADL MANUFACTURING PROCESS TECHNICIAN, JIMI L 599.0 URINARY TRACT INFECTION 08/18/2012 MADL MANUFACTURING PROCESS TECHNICIAN, JIMI L 782.3 soft tissue swelling (non-joint) [Sx] 08/18/2012 MADL MANUFACTURING PROCESS TECHNICIAN, JIMI L 599.0 URINARY TRACT INFECTION 08/18/2012 MADL MANUFACTURING PROCESS TECHNICIAN, JIMI L 782.3 soft tissue swelling (non-joint) [Sx] 08/18/2012 MADL MANUFACTURING PROCESS TECHNICIAN, JIMI L 599.0 URINARY TRACT INFECTION 08/18/2012 MADL MANUFACTURING PROCESS TECHNICIAN, JIMI L 782.3 soft tissue swelling (non-joint) [Sx] 08/18/2012 MADL MANUFACTURING PROCESS TECHNICIAN, JIMI L 599.0 URINARY TRACT INFECTION 08/18/2012 MADL MANUFACTURING PROCESS TECHNICIAN, JIMI L 782.3 soft tissue swelling (non-joint) [Sx] 08/18/2012 MADL MANUFACTURING PROCESS TECHNICIAN, JIMI L 599.0 URINARY TRACT INFECTION 08/18/2012 MADL MANUFACTURING PROCESS TECHNICIAN, JIMI L 782.3 soft tissue swelling (non-joint) [Sx] 08/18/2012 MADL MANUFACTURING PROCESS TECHNICIAN, JIMI L 599.0 URINARY TRACT INFECTION 08/18/2012 MADL MANUFACTURING PROCESS TECHNICIAN, JIMI L 782.3 soft tissue swelling (non-joint) [Sx] 08/18/2012 MADL MANUFACTURING PROCESS TECHNICIAN, JIMI L 599.0 URINARY TRACT INFECTION 08/18/2012 MADL MANUFACTURING PROCESS TECHNICIAN, JIMI L 782.3 soft tissue swelling (non-joint) [Sx] 08/18/2012 MADL MANUFACTURING PROCESS TECHNICIAN, JIMI L 599.0 URINARY TRACT INFECTION 08/18/2012 MADL MANUFACTURING PROCESS TECHNICIAN, JIMI L 782.3 soft tissue swelling (non-joint) [Sx] 08/18/2012 MADL MANUFACTURING PROCESS TECHNICIAN, JIMI L 599.0 URINARY TRACT INFECTION 08/18/2012 MADL MANUFACTURING PROCESS TECHNICIAN, JIMI L 782.3 soft tissue swelling (non-joint) [Sx] 08/18/2012 MADL MANUFACTURING PROCESS TECHNICIAN, JIMI L 599.0 URINARY TRACT INFECTION 08/18/2012 MADL MANUFACTURING PROCESS TECHNICIAN, JIMI L 782.3 soft tissue swelling (non-joint) [Sx] 10/17/2012 V65.42 COUNSELING - SMOKING CESSATION 10/17/2012 V65.42 COUNSELING - SMOKING CESSATION 10/17/2012 V65.42 COUNSELING - SMOKING CESSATION 10/17/2012 V65.42 COUNSELING - SMOKING CESSATION 10/17/2012 V65.42 COUNSELING - SMOKING CESSATION 10/17/2012 V65.42 COUNSELING - SMOKING CESSATION 10/17/2012 V65.42 COUNSELING - SMOKING CESSATION 10/17/2012 V65.42 COUNSELING - SMOKING CESSATION 10/17/2012 V65.42 COUNSELING - SMOKING CESSATION 10/17/2012 V65.42 COUNSELING - SMOKING CESSATION 10/17/2012 JAMIE DERAS MD V65.42 COUNSELING - SMOKING CESSATION 10/17/2012 JAMIE DERAS MD V65.42 COUNSELING - SMOKING CESSATION 10/17/2012 JAMIE DERAS MD V65.42 COUNSELING - SMOKING CESSATION 10/17/2012 PAT ZAMAN APRN V65.42 COUNSELING - SMOKING CESSATION 10/17/2012 JAMIE DERAS MD V65.42 COUNSELING - SMOKING CESSATION 10/17/2012 BRAEDEN PAYNE, JAMIE Swift V65.42 COUNSELING - SMOKING CESSATION 10/17/2012 CHAPMAN DO DAYANA K V65.42 COUNSELING - SMOKING CESSATION 10/17/2012 MADL MANUFACTURING PROCESS TECHNICIAN, JIMI L V65.42 COUNSELING - SMOKING CESSATION 10/17/2012 MADL MANUFACTURING PROCESS TECHNICIAN, JIMI L V65.42 COUNSELING - SMOKING CESSATION 10/17/2012 MADL MANUFACTURING PROCESS TECHNICIAN, JIMI L V65.42 COUNSELING - SMOKING CESSATION 10/17/2012 MADL MANUFACTURING PROCESS TECHNICIAN, JIMI L V65.42 COUNSELING - SMOKING CESSATION 10/17/2012 MADL MANUFACTURING PROCESS TECHNICIAN, JIMI L V65.42 COUNSELING - SMOKING CESSATION 10/17/2012 MADL MANUFACTURING PROCESS TECHNICIAN, JIMI L V65.42 COUNSELING - SMOKING CESSATION 10/17/2012 MADL MANUFACTURING PROCESS TECHNICIAN, JIMI L V65.42 COUNSELING - SMOKING CESSATION 10/17/2012 CHAPMAN DO DAYANA K V65.42 COUNSELING - SMOKING CESSATION 10/17/2012 CHAPMAN DO DAYANA K V65.42 COUNSELING - SMOKING CESSATION 10/17/2012 CHAPMAN DO DAYANA K V65.42 COUNSELING - SMOKING CESSATION 10/17/2012 MAD MANUFACTURING PROCESS TECHNICIAN, JIMI L V65.42 COUNSELING - SMOKING CESSATION 10/17/2012 CHAPMAN DO DAYANA K V65.42 COUNSELING - SMOKING CESSATION 10/17/2012 CHAPMAN DO DAYANA K V65.42 COUNSELING - SMOKING CESSATION 10/17/2012 MAD MANUFACTURING PROCESS TECHNICIAN, JIMI L V65.42 COUNSELING - SMOKING CESSATION 10/17/2012 MAD MANUFACTURING PROCESS TECHNICIAN, JIMI L V65.42 COUNSELING - SMOKING CESSATION 10/17/2012 MAD MANUFACTURING PROCESS TECHNICIAN, JIMI L V65.42 COUNSELING - SMOKING CESSATION 10/17/2012 MAD MANUFACTURING PROCESS TECHNICIAN, JIMI L V65.42 COUNSELING - SMOKING CESSATION 10/17/2012 MADL MANUFACTURING PROCESS TECHNICIAN, JIMI L V65.42 COUNSELING - SMOKING CESSATION 10/17/2012 MADL MANUFACTURING PROCESS TECHNICIAN, JIMI L V65.42 COUNSELING - SMOKING CESSATION 10/17/2012 MADL MANUFACTURING PROCESS TECHNICIAN, JIMI L V65.42 COUNSELING - SMOKING CESSATION 10/17/2012 MADL MANUFACTURING PROCESS TECHNICIAN, JIMI L V65.42 COUNSELING - SMOKING CESSATION 10/17/2012 MADL MANUFACTURING PROCESS TECHNICIAN, JIMI L V65.42 COUNSELING - SMOKING CESSATION 10/17/2012 MADL MANUFACTURING PROCESS TECHNICIAN, JIMI L V65.42 COUNSELING - SMOKING CESSATION 10/17/2012 MADL MANUFACTURING PROCESS TECHNICIAN, JIMI L V65.42 COUNSELING - SMOKING CESSATION 10/17/2012 MADL MANUFACTURING PROCESS TECHNICIAN, JIMI L V65.42 COUNSELING - SMOKING CESSATION 10/17/2012 MADL MANUFACTURING PROCESS TECHNICIAN, JIMI L V65.42 COUNSELING - SMOKING CESSATION 10/17/2012 MADL MANUFACTURING PROCESS TECHNICIAN, JIMI L V65.42 COUNSELING - SMOKING CESSATION 10/17/2012 MADL MANUFACTURING PROCESS TECHNICIAN, JIMI L V65.42 COUNSELING - SMOKING CESSATION 10/17/2012 MADL MANUFACTURING PROCESS TECHNICIAN, JIMI L V65.42 COUNSELING - SMOKING CESSATION 12/22/2012 625.9 PELVIC PAIN 12/22/2012 625.9 PELVIC PAIN 12/22/2012 625.9 PELVIC PAIN 12/22/2012 625.9 PELVIC PAIN 12/22/2012 JAMIE DERAS MD 625.9 PELVIC PAIN 12/22/2012 JAMIE DERAS MD 625.9 PELVIC PAIN 12/22/2012 JAMIE DERAS MD 625.9 PELVIC PAIN 12/22/2012 [facility] MANUFACTURING PROCESS TECHNICIAN, PAT R 625.9 PELVIC PAIN 12/22/2012 JAMIE DERAS MD 625.9 PELVIC PAIN 12/22/2012 JAMIE DERAS MD 625.9 PELVIC PAIN 12/22/2012 DAYANA CHAPMAN DO K 625.9 PELVIC PAIN 12/22/2012 MADL MANUFACTURING PROCESS TECHNICIAN, JIMI L 625.9 PELVIC PAIN 12/22/2012 MADL MANUFACTURING PROCESS TECHNICIAN, JIMI L 625.9 PELVIC PAIN 12/22/2012 MADL MANUFACTURING PROCESS TECHNICIAN, JIMI L 625.9 PELVIC PAIN 12/22/2012 MADL MANUFACTURING PROCESS TECHNICIAN, JIMI L 625.9 PELVIC PAIN 12/22/2012 MADL MANUFACTURING PROCESS TECHNICIAN, JIMI L 625.9 PELVIC PAIN 12/22/2012 MADL MANUFACTURING PROCESS TECHNICIAN, JIMI L 625.9 PELVIC PAIN 12/22/2012 MADL MANUFACTURING PROCESS TECHNICIAN, JIMI L 625.9 PELVIC PAIN 12/22/2012 CHAPMAN DO, DAYANA K 625.9 PELVIC PAIN 12/22/2012 CHAPMAN DO, DAYANA K 625.9 PELVIC PAIN 12/22/2012 CHAPMAN DO, DAYANA K 625.9 PELVIC PAIN 12/22/2012 MADL MANUFACTURING PROCESS TECHNICIAN, JIMI L 625.9 PELVIC PAIN 12/22/2012 CHAPMAN DO, DAYANA K 625.9 PELVIC PAIN 12/22/2012 CHAPMAN DO, DAYANA K 625.9 PELVIC PAIN 12/22/2012 MADL MANUFACTURING PROCESS TECHNICIAN, JIMI L 625.9 PELVIC PAIN 12/22/2012 MADL MANUFACTURING PROCESS TECHNICIAN, JIMI L 625.9 PELVIC PAIN 12/22/2012 MADL MANUFACTURING PROCESS TECHNICIAN, JIMI L 625.9 PELVIC PAIN 12/22/2012 MADL MANUFACTURING PROCESS TECHNICIAN, JIMI L 625.9 PELVIC PAIN 12/22/2012 MADL MANUFACTURING PROCESS TECHNICIAN, JIMI L 625.9 PELVIC PAIN 12/22/2012 MADL MANUFACTURING PROCESS TECHNICIAN, JIMI L 625.9 PELVIC PAIN 12/22/2012 MADL MANUFACTURING PROCESS TECHNICIAN, JIMI L 625.9 PELVIC PAIN 12/22/2012 MADL MANUFACTURING PROCESS TECHNICIAN, JIMI L 625.9 PELVIC PAIN 12/22/2012 MADL MANUFACTURING PROCESS TECHNICIAN, JIMI L 625.9 PELVIC PAIN 12/22/2012 MADL MANUFACTURING PROCESS TECHNICIAN, JIMI L 625.9 PELVIC PAIN 12/22/2012 MADL MANUFACTURING PROCESS TECHNICIAN, JIMI L 625.9 PELVIC PAIN 12/22/2012 MADL MANUFACTURING PROCESS TECHNICIAN, JIMI L 625.9 PELVIC PAIN 12/22/2012 MADL MANUFACTURING PROCESS TECHNICIAN, JIMI L 625.9 PELVIC PAIN 12/22/2012 MADL MANUFACTURING PROCESS TECHNICIAN, JIMI L 625.9 PELVIC PAIN 12/22/2012 MADL MANUFACTURING PROCESS TECHNICIAN, JIMI L 625.9 PELVIC PAIN 12/22/2012 MADL MANUFACTURING PROCESS TECHNICIAN, JIMI L 625.9 PELVIC PAIN 01/05/2013 780.2 PRESYNCOPE SYNDROME 01/05/2013 780.2 PRESYNCOPE SYNDROME 01/05/2013 780.2 PRESYNCOPE SYNDROME 01/05/2013 JAMIE DERAS MD 780.2 PRESYNCOPE SYNDROME 01/05/2013 JAMIE DERAS MD 780.2 PRESYNCOPE SYNDROME 01/05/2013 JAMIE DERAS MD 780.2 PRESYNCOPE SYNDROME 01/05/2013 JUNIE MANUFACTURING PROCESS TECHNICIAN, PAT R 780.2 PRESYNCOPE SYNDROME 01/05/2013 JAMIE DERAS MD 780.2 PRESYNCOPE SYNDROME 01/05/2013 JAMIE DERAS MD 780.2 PRESYNCOPE SYNDROME 01/05/2013 CHAPMAN DO DAYANA K 780.2 PRESYNCOPE SYNDROME 01/05/2013 MADL MANUFACTURING PROCESS TECHNICIAN, JIMI L 780.2 PRESYNCOPE SYNDROME 01/05/2013 MADL MANUFACTURING PROCESS TECHNICIAN, JIMI L 780.2 PRESYNCOPE SYNDROME 01/05/2013 MADL MANUFACTURING PROCESS TECHNICIAN, JIMI L 780.2 PRESYNCOPE SYNDROME 01/05/2013 MADL MANUFACTURING PROCESS TECHNICIAN, JIMI L 780.2 PRESYNCOPE SYNDROME 01/05/2013 MADL MANUFACTURING PROCESS TECHNICIAN, JIMI L 780.2 PRESYNCOPE SYNDROME 01/05/2013 MADL MANUFACTURING PROCESS TECHNICIAN, JIMI L 780.2 PRESYNCOPE SYNDROME 01/05/2013 MADL MANUFACTURING PROCESS TECHNICIAN, JIMI L 780.2 PRESYNCOPE SYNDROME 01/05/2013 CHAPMAN DO, DAYANA K 780.2 PRESYNCOPE SYNDROME 01/05/2013 CHAPMAN DO, DAYANA K 780.2 PRESYNCOPE SYNDROME 01/05/2013 CHAPMAN DO, DAYANA K 780.2 PRESYNCOPE SYNDROME 01/05/2013 MADL MANUFACTURING PROCESS TECHNICIAN, JIMI L 780.2 PRESYNCOPE SYNDROME 01/05/2013 CHAPMAN DO, DAYANA K 780.2 PRESYNCOPE SYNDROME 01/05/2013 CHAPMAN DO, DAYANA K 780.2 PRESYNCOPE SYNDROME 01/05/2013 MADL MANUFACTURING PROCESS TECHNICIAN, JIMI L 780.2 PRESYNCOPE SYNDROME 01/05/2013 MADL MANUFACTURING PROCESS TECHNICIAN, JIMI L 780.2 PRESYNCOPE SYNDROME 01/05/2013 MADL MANUFACTURING PROCESS TECHNICIAN, JIMI L 780.2 PRESYNCOPE SYNDROME 01/05/2013 MADL MANUFACTURING PROCESS TECHNICIAN, JIMI L 780.2 PRESYNCOPE SYNDROME 01/05/2013 MADL MANUFACTURING PROCESS TECHNICIAN, JIMI L 780.2 PRESYNCOPE SYNDROME 01/05/2013 MADL MANUFACTURING PROCESS TECHNICIAN, JIMI L 780.2 PRESYNCOPE SYNDROME 01/05/2013 MADL MANUFACTURING PROCESS TECHNICIAN, JIMI L 780.2 PRESYNCOPE SYNDROME 01/05/2013 MADL MANUFACTURING PROCESS TECHNICIAN, JIMI L 780.2 PRESYNCOPE SYNDROME 01/05/2013 MADL MANUFACTURING PROCESS TECHNICIAN, JIMI L 780.2 PRESYNCOPE SYNDROME 01/05/2013 MADL MANUFACTURING PROCESS TECHNICIAN, JIMI L 780.2 PRESYNCOPE SYNDROME 01/05/2013 MADL MANUFACTURING PROCESS TECHNICIAN, JIMI L 780.2 PRESYNCOPE SYNDROME 01/05/2013 MADL MANUFACTURING PROCESS TECHNICIAN, JIMI L 780.2 PRESYNCOPE SYNDROME 01/05/2013 MADL MANUFACTURING PROCESS TECHNICIAN, JIMI L 780.2 PRESYNCOPE SYNDROME 01/05/2013 MADL MANUFACTURING PROCESS TECHNICIAN, JIMI L 780.2 PRESYNCOPE SYNDROME 01/05/2013 MADL MANUFACTURING PROCESS TECHNICIAN, JIMI L 780.2 PRESYNCOPE SYNDROME 01/05/2013 MADL MANUFACTURING PROCESS TECHNICIAN, JIMI L 780.2 PRESYNCOPE SYNDROME 01/18/2013 V58.69 MEDICATION HIGH RISK 01/18/2013 V58.69 MEDICATION HIGH RISK 01/18/2013 JAMIE DERAS MD M V58.69 MEDICATION HIGH RISK 01/18/2013 JAMIE DERAS MD M V58.69 MEDICATION HIGH RISK 01/18/2013 JAMIE DERAS MD M V58.69 MEDICATION HIGH RISK 01/18/2013 JUNIE MITCHELL PAT R V58.69 MEDICATION HIGH RISK 01/18/2013 JAMIE DERAS MD M V58.69 MEDICATION HIGH RISK 01/18/2013 JAMIE DERAS MD M V58.69 MEDICATION HIGH RISK 01/18/2013 DAYANA CHAPMAN DO V58.69 MEDICATION HIGH RISK 01/18/2013 MADL MANUFACTURING PROCESS TECHNICIAN, JIMI L V58.69 MEDICATION HIGH RISK 01/18/2013 MADL MANUFACTURING PROCESS TECHNICIAN, JIMI L V58.69 MEDICATION HIGH RISK 01/18/2013 MADL MANUFACTURING PROCESS TECHNICIAN, JIMI L V58.69 MEDICATION HIGH RISK 01/18/2013 MADL MANUFACTURING PROCESS TECHNICIAN, JIMI L V58.69 MEDICATION HIGH RISK 01/18/2013 MADL MANUFACTURING PROCESS TECHNICIAN, JIMI L V58.69 MEDICATION HIGH RISK 01/18/2013 MADL MANUFACTURING PROCESS TECHNICIAN, JIMI L V58.69 MEDICATION HIGH RISK 01/18/2013 MADL MANUFACTURING PROCESS TECHNICIAN, JIMI L V58.69 MEDICATION HIGH RISK 01/18/2013 CHAPMAN DO, DAYANA K V58.69 MEDICATION HIGH RISK 01/18/2013 CHAPMAN DO, DAYANA K V58.69 MEDICATION HIGH RISK 01/18/2013 CHAPMAN DO, DAYANA K V58.69 MEDICATION HIGH RISK 01/18/2013 MADL MANUFACTURING PROCESS TECHNICIAN, JIMI L V58.69 MEDICATION HIGH RISK 01/18/2013 CHAPMAN DO, DAYANA K V58.69 MEDICATION HIGH RISK 01/18/2013 CHAPMAN DO, DAYANA K V58.69 MEDICATION HIGH RISK 01/18/2013 MADL MANUFACTURING PROCESS TECHNICIAN, JIMI L V58.69 MEDICATION HIGH RISK 01/18/2013 MADL MANUFACTURING PROCESS TECHNICIAN, JIMI L V58.69 MEDICATION HIGH RISK 01/18/2013 MADL MANUFACTURING PROCESS TECHNICIAN, JIMI L V58.69 MEDICATION HIGH RISK 01/18/2013 MADL MANUFACTURING PROCESS TECHNICIAN, JIMI L V58.69 MEDICATION HIGH RISK 01/18/2013 MADL MANUFACTURING PROCESS TECHNICIAN, JIMI L V58.69 MEDICATION HIGH RISK 01/18/2013 MADL MANUFACTURING PROCESS TECHNICIAN, JIMI L V58.69 MEDICATION HIGH RISK 01/18/2013 MADL MANUFACTURING PROCESS TECHNICIAN, JIMI L V58.69 MEDICATION HIGH RISK 01/18/2013 MADL MANUFACTURING PROCESS TECHNICIAN, JIMI L V58.69 MEDICATION HIGH RISK 01/18/2013 MADL MANUFACTURING PROCESS TECHNICIAN, JIMI L V58.69 MEDICATION HIGH RISK 01/18/2013 MADL MANUFACTURING PROCESS TECHNICIAN, JIMI L V58.69 MEDICATION HIGH RISK 01/18/2013 MADL MANUFACTURING PROCESS TECHNICIAN, JIMI L V58.69 MEDICATION HIGH RISK 01/18/2013 MADL MANUFACTURING PROCESS TECHNICIAN, JIMI L V58.69 MEDICATION HIGH RISK 01/18/2013 MADL MANUFACTURING PROCESS TECHNICIAN, JIMI L V58.69 MEDICATION HIGH RISK 01/18/2013 MADL MANUFACTURING PROCESS TECHNICIAN, JIMI L V58.69 MEDICATION HIGH RISK 01/18/2013 MADL MANUFACTURING PROCESS TECHNICIAN, JIMI L V58.69 MEDICATION HIGH RISK 01/18/2013 MADL MANUFACTURING PROCESS TECHNICIAN, JIMI L V58.69 MEDICATION HIGH RISK 11/03/2013 MADL MANUFACTURING PROCESS TECHNICIAN, JIMI L 919.4 INSECT BITE NONVENOMOUS OF OTHER MULTIPLE AND UNSPECIFIED SITES WITHOUT INFECTION 11/03/2013 MADL MANUFACTURING PROCESS TECHNICIAN, JIMI L 919.4 INSECT BITE NONVENOMOUS OF OTHER MULTIPLE AND UNSPECIFIED SITES WITHOUT INFECTION 11/03/2013 MADL MANUFACTURING PROCESS TECHNICIAN, JIMI L 919.4 INSECT BITE NONVENOMOUS OF OTHER MULTIPLE AND UNSPECIFIED SITES WITHOUT INFECTION 11/03/2013 MADL MANUFACTURING PROCESS TECHNICIAN, JIMI L 919.4 INSECT BITE NONVENOMOUS OF OTHER MULTIPLE AND UNSPECIFIED SITES WITHOUT INFECTION 11/03/2013 MADL MANUFACTURING PROCESS TECHNICIAN, JIMI L 919.4 INSECT BITE NONVENOMOUS OF OTHER MULTIPLE AND UNSPECIFIED SITES WITHOUT INFECTION 11/03/2013 MADL MANUFACTURING PROCESS TECHNICIAN, JIMI L 919.4 INSECT BITE NONVENOMOUS OF OTHER MULTIPLE AND UNSPECIFIED SITES WITHOUT INFECTION 11/03/2013 MADL MANUFACTURING PROCESS TECHNICIAN, JIMI L 919.4 INSECT BITE NONVENOMOUS OF OTHER MULTIPLE AND UNSPECIFIED SITES WITHOUT INFECTION 11/03/2013 CHAPMAN DO, DAYANA K 919.4 INSECT BITE NONVENOMOUS OF OTHER MULTIPLE AND UNSPECIFIED SITES WITHOUT INFECTION 11/03/2013 CHAPMAN DO, DAYANA K 919.4 INSECT BITE NONVENOMOUS OF OTHER MULTIPLE AND UNSPECIFIED SITES WITHOUT INFECTION 11/03/2013 CHAPMAN DO, DAYANA K 919.4 INSECT BITE NONVENOMOUS OF OTHER MULTIPLE AND UNSPECIFIED SITES WITHOUT INFECTION 11/03/2013 MADL MANUFACTURING PROCESS TECHNICIAN, JIMI L 919.4 INSECT BITE NONVENOMOUS OF OTHER MULTIPLE AND UNSPECIFIED SITES WITHOUT INFECTION 11/03/2013 CHAPMAN DO, DAYANA K 919.4 INSECT BITE NONVENOMOUS OF OTHER MULTIPLE AND UNSPECIFIED SITES WITHOUT INFECTION 11/03/2013 CHAPMAN DO, DAYANA K 919.4 INSECT BITE NONVENOMOUS OF OTHER MULTIPLE AND UNSPECIFIED SITES WITHOUT INFECTION 11/03/2013 MADL MANUFACTURING PROCESS TECHNICIAN, JIMI L 919.4 INSECT BITE NONVENOMOUS OF OTHER MULTIPLE AND UNSPECIFIED SITES WITHOUT INFECTION 11/03/2013 MADL MANUFACTURING PROCESS TECHNICIAN, JIMI L 919.4 INSECT BITE NONVENOMOUS OF OTHER MULTIPLE AND UNSPECIFIED SITES WITHOUT INFECTION 11/03/2013 MADL MANUFACTURING PROCESS TECHNICIAN, JIMI L 919.4 INSECT BITE NONVENOMOUS OF OTHER MULTIPLE AND UNSPECIFIED SITES WITHOUT INFECTION 11/03/2013 MADL MANUFACTURING PROCESS TECHNICIAN, JIMI L 919.4 INSECT BITE NONVENOMOUS OF OTHER MULTIPLE AND UNSPECIFIED SITES WITHOUT INFECTION 11/03/2013 MADL MANUFACTURING PROCESS TECHNICIAN, JIMI L 919.4 INSECT BITE NONVENOMOUS OF OTHER MULTIPLE AND UNSPECIFIED SITES WITHOUT INFECTION 11/03/2013 MADL MANUFACTURING PROCESS TECHNICIAN, JIMI L 919.4 INSECT BITE NONVENOMOUS OF OTHER MULTIPLE AND UNSPECIFIED SITES WITHOUT INFECTION 11/03/2013 MADL MANUFACTURING PROCESS TECHNICIAN, JIMI L 919.4 INSECT BITE NONVENOMOUS OF OTHER MULTIPLE AND UNSPECIFIED SITES WITHOUT INFECTION 11/03/2013 MADL MANUFACTURING PROCESS TECHNICIAN, JIMI L 919.4 INSECT BITE NONVENOMOUS OF OTHER MULTIPLE AND UNSPECIFIED SITES WITHOUT INFECTION 11/03/2013 MADL MANUFACTURING PROCESS TECHNICIAN, JIMI L 919.4 INSECT BITE NONVENOMOUS OF OTHER MULTIPLE AND UNSPECIFIED SITES WITHOUT INFECTION 11/03/2013 MADL MANUFACTURING PROCESS TECHNICIAN, JIMI L 919.4 INSECT BITE NONVENOMOUS OF OTHER MULTIPLE AND UNSPECIFIED SITES WITHOUT INFECTION 11/03/2013 MADL MANUFACTURING PROCESS TECHNICIAN, JIMI L 919.4 INSECT BITE NONVENOMOUS OF OTHER MULTIPLE AND UNSPECIFIED SITES WITHOUT INFECTION 11/03/2013 MADL MANUFACTURING PROCESS TECHNICIAN, JIMI L 919.4 INSECT BITE NONVENOMOUS OF OTHER MULTIPLE AND UNSPECIFIED SITES WITHOUT INFECTION 11/03/2013 MADL MANUFACTURING PROCESS TECHNICIAN, JIMI L 919.4 INSECT BITE NONVENOMOUS OF OTHER MULTIPLE AND UNSPECIFIED SITES WITHOUT INFECTION 11/03/2013 MADL MANUFACTURING PROCESS TECHNICIAN, JIMI L 919.4 INSECT BITE NONVENOMOUS OF OTHER MULTIPLE AND UNSPECIFIED SITES WITHOUT INFECTION 11/03/2013 MADL MANUFACTURING PROCESS TECHNICIAN, JIMI L 919.4 INSECT BITE NONVENOMOUS OF OTHER MULTIPLE AND UNSPECIFIED SITES WITHOUT INFECTION 11/03/2013 MADL MANUFACTURING PROCESS TECHNICIAN, JIMI L 919.4 INSECT BITE NONVENOMOUS OF OTHER MULTIPLE AND UNSPECIFIED SITES WITHOUT INFECTION 11/25/2013 MADL MANUFACTURING PROCESS TECHNICIAN, JIMI L 788.1 DYSURIA 11/25/2013 MADL MANUFACTURING PROCESS TECHNICIAN, JIMI L 788.1 DYSURIA 11/25/2013 MADL MANUFACTURING PROCESS TECHNICIAN, JIMI L 788.1 DYSURIA 11/25/2013 MADL MANUFACTURING PROCESS TECHNICIAN, JIMI L 788.1 DYSURIA 11/25/2013 MADL MANUFACTURING PROCESS TECHNICIAN, JIMI L 788.1 DYSURIA 11/25/2013 MADL MANUFACTURING PROCESS TECHNICIAN, JIMI L 788.1 DYSURIA 11/25/2013 CHAPMAN DO, DAYANA K 788.1 DYSURIA 11/25/2013 CHAPMAN DO, DAYANA K 788.1 DYSURIA 11/25/2013 CHAPMAN DO, DAYANA K 788.1 DYSURIA 11/25/2013 MADL MANUFACTURING PROCESS TECHNICIAN, JIMI L 788.1 DYSURIA 11/25/2013 CHAPMAN DO, DAYANA K 788.1 DYSURIA 11/25/2013 CHAPMAN DO, DAYANA K 788.1 DYSURIA 11/25/2013 MADL MANUFACTURING PROCESS TECHNICIAN, JIMI L 788.1 DYSURIA 11/25/2013 MADL MANUFACTURING PROCESS TECHNICIAN, JIMI L 788.1 DYSURIA 11/25/2013 MADL MANUFACTURING PROCESS TECHNICIAN, JIMI L 788.1 DYSURIA 11/25/2013 MADL MANUFACTURING PROCESS TECHNICIAN, JIMI L 788.1 DYSURIA 11/25/2013 MADL MANUFACTURING PROCESS TECHNICIAN, JIMI L 788.1 DYSURIA 11/25/2013 MADL MANUFACTURING PROCESS TECHNICIAN, JIMI L 788.1 DYSURIA 11/25/2013 MADL MANUFACTURING PROCESS TECHNICIAN, JIMI L 788.1 DYSURIA 11/25/2013 MADL MANUFACTURING PROCESS TECHNICIAN, JIMI L 788.1 DYSURIA 11/25/2013 MADL MANUFACTURING PROCESS TECHNICIAN, JIMI L 788.1 DYSURIA 11/25/2013 MADL MANUFACTURING PROCESS TECHNICIAN, JIMI L 788.1 DYSURIA 11/25/2013 MADL MANUFACTURING PROCESS TECHNICIAN, JIMI L 788.1 DYSURIA 11/25/2013 MADL MANUFACTURING PROCESS TECHNICIAN, JIMI L 788.1 DYSURIA 11/25/2013 MADL MANUFACTURING PROCESS TECHNICIAN, JIMI L 788.1 DYSURIA 11/25/2013 MADL MANUFACTURING PROCESS TECHNICIAN, JIMI L 788.1 DYSURIA 11/25/2013 MADL MANUFACTURING PROCESS TECHNICIAN, JIMI L 788.1 DYSURIA 11/25/2013 MADL MANUFACTURING PROCESS TECHNICIAN, JIMI L 788.1 DYSURIA 01/03/2014 MADL MANUFACTURING PROCESS TECHNICIAN, JIMI L 719.40 PAIN IN JOINT SITE UNSPECIFIED 01/03/2014 CHAPMAN DO, DAYANA K 719.40 PAIN IN JOINT SITE UNSPECIFIED 01/03/2014 CHAPMAN DO, DAYANA K 719.40 PAIN IN JOINT SITE UNSPECIFIED 01/03/2014 CHAPMAN DO, DAYANA K 719.40 PAIN IN JOINT SITE UNSPECIFIED 01/03/2014 MADL MANUFACTURING PROCESS TECHNICIAN, JIMI L 719.40 PAIN IN JOINT SITE UNSPECIFIED 01/03/2014 CHAPMAN DO, DAYANA K 719.40 PAIN IN JOINT SITE UNSPECIFIED 01/03/2014 CHAPMAN DO, DAYANA K 719.40 PAIN IN JOINT SITE UNSPECIFIED 01/03/2014 MADL MANUFACTURING PROCESS TECHNICIAN, JIMI L 719.40 PAIN IN JOINT SITE UNSPECIFIED 01/03/2014 MADL MANUFACTURING PROCESS TECHNICIAN, JIMI L 719.40 PAIN IN JOINT SITE UNSPECIFIED 01/03/2014 MADL MANUFACTURING PROCESS TECHNICIAN, JIMI L 719.40 PAIN IN JOINT SITE UNSPECIFIED 01/03/2014 MADL MANUFACTURING PROCESS TECHNICIAN, JIMI L 719.40 PAIN IN JOINT SITE UNSPECIFIED 01/03/2014 MADL MANUFACTURING PROCESS TECHNICIAN, JIMI L 719.40 PAIN IN JOINT SITE UNSPECIFIED 01/03/2014 MADL MANUFACTURING PROCESS TECHNICIAN, JIMI L 719.40 PAIN IN JOINT SITE UNSPECIFIED 01/03/2014 MADL MANUFACTURING PROCESS TECHNICIAN, JIMI L 719.40 PAIN IN JOINT SITE UNSPECIFIED 01/03/2014 MADL MANUFACTURING PROCESS TECHNICIAN, JIMI L 719.40 PAIN IN JOINT SITE UNSPECIFIED 01/03/2014 MADL MANUFACTURING PROCESS TECHNICIAN, JIMI L 719.40 PAIN IN JOINT SITE UNSPECIFIED 01/03/2014 MADL MANUFACTURING PROCESS TECHNICIAN, JIMI L 719.40 PAIN IN JOINT SITE UNSPECIFIED 01/03/2014 MADL MANUFACTURING PROCESS TECHNICIAN, JIMI L 719.40 PAIN IN JOINT SITE UNSPECIFIED 01/03/2014 MADL MANUFACTURING PROCESS TECHNICIAN, JIMI L 719.40 PAIN IN JOINT SITE UNSPECIFIED 01/03/2014 MADL MANUFACTURING PROCESS TECHNICIAN, JIMI L 719.40 PAIN IN JOINT SITE UNSPECIFIED 01/03/2014 MADL MANUFACTURING PROCESS TECHNICIAN, JIMI L 719.40 PAIN IN JOINT SITE UNSPECIFIED 01/03/2014 MADL MANUFACTURING PROCESS TECHNICIAN, JIMI L 719.40 PAIN IN JOINT SITE UNSPECIFIED 01/03/2014 MADL MANUFACTURING PROCESS TECHNICIAN, JIMI L 719.40 PAIN IN JOINT SITE UNSPECIFIED 02/08/2014 CHAPMAN DO, DAYANA K 627.9 UNSPECIFIED MENOPAUSAL AND POSTMENOPAUSAL DISORDER 02/08/2014 CHAPMAN DO, DAAYNA K 627.9 UNSPECIFIED MENOPAUSAL AND POSTMENOPAUSAL DISORDER 02/08/2014 MADL MANUFACTURING PROCESS TECHNICIAN, JIMI L 627.9 UNSPECIFIED MENOPAUSAL AND POSTMENOPAUSAL DISORDER 02/08/2014 CHAPMAN DO, DAYANA K 627.9 UNSPECIFIED MENOPAUSAL AND POSTMENOPAUSAL DISORDER 02/08/2014 CHAPMAN DO, DAYANA K 627.9 UNSPECIFIED MENOPAUSAL AND POSTMENOPAUSAL DISORDER 02/08/2014 MADL MANUFACTURING PROCESS TECHNICIAN, JIMI L 627.9 UNSPECIFIED MENOPAUSAL AND POSTMENOPAUSAL DISORDER 02/08/2014 MADL MANUFACTURING PROCESS TECHNICIAN, JIMI L 627.9 UNSPECIFIED MENOPAUSAL AND POSTMENOPAUSAL DISORDER 02/08/2014 MADL MANUFACTURING PROCESS TECHNICIAN, JIMI L 627.9 UNSPECIFIED MENOPAUSAL AND POSTMENOPAUSAL DISORDER 02/08/2014 MADL MANUFACTURING PROCESS TECHNICIAN, JIMI L 627.9 UNSPECIFIED MENOPAUSAL AND POSTMENOPAUSAL DISORDER 02/08/2014 MADL MANUFACTURING PROCESS TECHNICIAN, JIMI L 627.9 UNSPECIFIED MENOPAUSAL AND POSTMENOPAUSAL DISORDER 02/08/2014 MADL MANUFACTURING PROCESS TECHNICIAN, JIMI L 627.9 UNSPECIFIED MENOPAUSAL AND POSTMENOPAUSAL DISORDER 02/08/2014 MADL MANUFACTURING PROCESS TECHNICIAN, JIMI L 627.9 UNSPECIFIED MENOPAUSAL AND POSTMENOPAUSAL DISORDER 02/08/2014 MADL MANUFACTURING PROCESS TECHNICIAN, JIMI L 627.9 UNSPECIFIED MENOPAUSAL AND POSTMENOPAUSAL DISORDER 02/08/2014 MADL MANUFACTURING PROCESS TECHNICIAN, JIMI L 627.9 UNSPECIFIED MENOPAUSAL AND POSTMENOPAUSAL DISORDER 02/08/2014 MADL MANUFACTURING PROCESS TECHNICIAN, JIMI L 627.9 UNSPECIFIED MENOPAUSAL AND POSTMENOPAUSAL DISORDER 02/08/2014 MADL MANUFACTURING PROCESS TECHNICIAN, JIMI L 627.9 UNSPECIFIED MENOPAUSAL AND POSTMENOPAUSAL DISORDER 02/08/2014 MADL MANUFACTURING PROCESS TECHNICIAN, JIMI L 627.9 UNSPECIFIED MENOPAUSAL AND POSTMENOPAUSAL DISORDER 02/08/2014 MADL MANUFACTURING PROCESS TECHNICIAN, JIMI L 627.9 UNSPECIFIED MENOPAUSAL AND POSTMENOPAUSAL DISORDER 02/08/2014 JIMI ROBB APRN 627.9 UNSPECIFIED MENOPAUSAL AND POSTMENOPAUSAL DISORDER 02/08/2014 JIMI ROBB APRN 627.9 UNSPECIFIED MENOPAUSAL AND POSTMENOPAUSAL DISORDER 02/08/2014 JIMI ROBB APRN 627.9 UNSPECIFIED MENOPAUSAL AND POSTMENOPAUSAL DISORDER 06/03/2014 Ot 631 06/03/2014 Ot V72.83 06/03/2014 Ot V74.8 06/03/2014 Ot 786.2 06/03/2014 Ot 181 06/03/2014 Ot 348.2 06/03/2014 Ot V58.69 06/03/2014 Ot V87.41 06/03/2014 Ot 199.1 06/03/2014 Ot V72.42 06/03/2014 Ot V28.89 06/03/2014 Ot 181 06/03/2014 Ot V58.69 06/03/2014 Ot V87.41 06/03/2014 Ot 626.2 06/03/2014 Ot 630 06/03/2014 Ot 181 06/03/2014 Ot 462 06/03/2014 Ot V12.49 06/03/2014 Ot V58.69 06/03/2014 Ot V87.41 06/03/2014 Ot 630 06/03/2014 Ot 724.1 06/03/2014 Ot 181 06/03/2014 Ot 285.9 06/03/2014 Ot 625.9 06/03/2014 Ot V72.63 06/03/2014 Ot V74.8 06/03/2014 Ot 415.19 06/03/2014 Ot 625.8 06/03/2014 Ot 789.1 06/03/2014 Ot 789.2 06/03/2014 Ot 415.19 06/03/2014 Ot 729.5 06/03/2014 Ot V58.61 06/03/2014 Ot V10.44 06/03/2014 Ot V45.77 06/03/2014 Ot V58.61 06/03/2014 Ot V58.69 06/03/2014 Ot V87.41 06/06/2014 ARTIE HARRISP Ot 782.0 06/06/2014 ARTIE HARRIS TEACHER EDUCATION INSTRUCTOR Ot V12.51 06/06/2014 ARTIE HARRISP Ot V58.61 06/30/2014 ARTIE HARRIS TEACHER EDUCATION INSTRUCTOR Ot 782.0 06/30/2014 STEVENARTIE R TEACHER EDUCATION INSTRUCTOR Ot V12.51 06/30/2014 AHRRISARTIE TEACHER EDUCATION INSTRUCTOR Ot V58.61 07/11/2014 MADL MANUFACTURING PROCESS TECHNICIAN, JIMI L 789.04 ABDOMINAL PAIN LEFT LOWER QUADRANT 07/11/2014 MADL MANUFACTURING PROCESS TECHNICIAN, JIMI L 789.04 ABDOMINAL PAIN LEFT LOWER QUADRANT 07/11/2014 MADL MANUFACTURING PROCESS TECHNICIAN, JIMI L 789.04 ABDOMINAL PAIN LEFT LOWER QUADRANT 07/11/2014 MADL MANUFACTURING PROCESS TECHNICIAN, JIMI L 789.04 ABDOMINAL PAIN LEFT LOWER QUADRANT 07/11/2014 MADL MANUFACTURING PROCESS TECHNICIAN, JIMI L 789.04 ABDOMINAL PAIN LEFT LOWER QUADRANT 07/11/2014 MADL MANUFACTURING PROCESS TECHNICIAN, JIMI L 789.04 ABDOMINAL PAIN LEFT LOWER QUADRANT 07/25/2014 Ot 631 07/25/2014 Ot V72.83 07/25/2014 Ot V74.8 07/25/2014 Ot 786.2 07/25/2014 Ot 181 07/25/2014 Ot 348.2 07/25/2014 Ot V58.69 07/25/2014 Ot V87.41 07/25/2014 Ot 199.1 07/25/2014 Ot V72.42 07/25/2014 Ot V28.89 07/25/2014 Ot 181 07/25/2014 Ot V58.69 07/25/2014 Ot V87.41 07/25/2014 Ot 626.2 07/25/2014 Ot 630 07/25/2014 Ot 181 07/25/2014 Ot 462 07/25/2014 Ot V12.49 07/25/2014 Ot V58.69 07/25/2014 Ot V87.41 07/25/2014 Ot 630 07/25/2014 Ot 724.1 07/25/2014 Ot 181 07/25/2014 Ot 285.9 07/25/2014 Ot 625.9 07/25/2014 Ot V72.63 07/25/2014 Ot V74.8 07/25/2014 Ot 415.19 07/25/2014 Ot 625.8 07/25/2014 Ot 789.1 07/25/2014 Ot 789.2 07/25/2014 Ot 415.19 07/25/2014 Ot 729.5 07/25/2014 Ot V58.61 07/25/2014 Ot V10.44 07/25/2014 Ot V45.77 07/25/2014 Ot V58.61 07/25/2014 Ot V58.69 07/25/2014 Ot V87.41 07/25/2014 ARTIE HARRISP Ot 782.0 07/25/2014 ARTIE HARRISP Ot V12.51 07/25/2014 ARTIE HARRISP Ot V58.61 07/25/2014 Ot 631 07/25/2014 Ot V72.83 07/25/2014 Ot V74.8 07/25/2014 Ot 786.2 07/25/2014 Ot 181 07/25/2014 Ot 348.2 07/25/2014 Ot V58.69 07/25/2014 Ot V87.41 07/25/2014 Ot 199.1 07/25/2014 Ot V72.42 07/25/2014 Ot V28.89 07/25/2014 Ot 181 07/25/2014 Ot V58.69 07/25/2014 Ot V87.41 07/25/2014 Ot 626.2 07/25/2014 Ot 630 07/25/2014 Ot 181 07/25/2014 Ot 462 07/25/2014 Ot V12.49 07/25/2014 Ot V58.69 07/25/2014 Ot V87.41 07/25/2014 Ot 630 07/25/2014 Ot 724.1 07/25/2014 Ot 181 07/25/2014 Ot 285.9 07/25/2014 Ot 625.9 07/25/2014 Ot V72.63 07/25/2014 Ot V74.8 07/25/2014 Ot 415.19 07/25/2014 Ot 625.8 07/25/2014 Ot 789.1 07/25/2014 Ot 789.2 07/25/2014 Ot 415.19 07/25/2014 Ot 729.5 07/25/2014 Ot V58.61 07/25/2014 Ot V10.44 07/25/2014 Ot V45.77 07/25/2014 Ot V58.61 07/25/2014 Ot V58.69 07/25/2014 Ot V87.41 07/25/2014 ARTIE HARRIS R TEACHER EDUCATION INSTRUCTOR Ot 782.0 07/25/2014 STEVEN ARTIE R TEACHER EDUCATION INSTRUCTOR Ot V12.51 07/25/2014 STEVEN ARTIE R TEACHER EDUCATION INSTRUCTOR Ot V58.61 07/27/2014 ASYA RODRIGUEZ DO M Ot 786.05 07/27/2014 MICHAEL CLARK, ASYA M Ot V12.55 07/30/2014 DIANE PAYNE, JENNY Dove Ot 416.2 07/30/2014 DIANE PAYNE, JENNY Dove Ot 780.2 07/30/2014 DIANE PAYNE, JENNY Dove Ot 786.05 07/30/2014 DIANE PAYNE, JENNY Dove Ot V58.61 07/30/2014 DIANE PAYNE, JENNY Dove Ot V58.69 08/03/2014 MICHAEL CLARK, ASYA M Ot 278.00 08/03/2014 MICHAEL CLARK, ASYA M Ot 305.1 08/03/2014 MICHAEL CLARK, ASYA M Ot 786.05 08/03/2014 TANNA RODRIGUEZ DOSON M Ot V12.55 08/04/2014 MICHAEL CLARK, ASYA M Ot 278.00 08/04/2014 MICHAEL CLARK, ASYA M Ot 305.1 08/04/2014 MICHAEL CLARK, ASYA M Ot 786.05 08/04/2014 MICHAEL CLARK, ASYA M Ot V12.55 08/11/2014 MICHAEL CLARK, ASYA M Ot 786.05 08/11/2014 MICHAEL CLARK, ASYA M Ot V12.55 08/11/2014 MICHAEL CLARK, ASYA M Ot 305.1 08/11/2014 MICHAEL CLARK, ASYA M Ot 786.05 08/11/2014 MICHAEL CLARK, ASYA M Ot 786.09 08/11/2014 MICHAEL DO, ASYA M Ot V12.55 08/18/2014 MICHAEL CLARK, ASYA M Ot 278.00 08/18/2014 MICHAEL CLARK, ASYA M Ot 305.1 08/18/2014 MICHAEL CLARK, ASYA M Ot 786.05 08/18/2014 MICHAEL CLARK, ASYA M Ot V12.55 09/14/2014 TANNA RODRIGUEZ DOSON M Ot 327.23 OBSTRUCTIVE SLEEP APNEA (ADULT) (PEDIATR 09/14/2014 ASYA RODRIGUEZ DO Ot 786.09 RESPIRATORY ABNORM NEC 09/14/2014 ASYA RODRIGUEZ DO Ot 278.00 09/14/2014 ASYA RODRIGUEZ DO M Ot 305.1 09/14/2014 ASYA RODRIGUEZ DO M Ot 786.05 09/14/2014 ASYA RODRIGUEZ DO M Ot V12.55 09/22/2014 HENRI CLARK AMINAH Mani Ot 569.3 09/23/2014 HENRI CLARKAMINAH Ot 569.3 09/24/2014 GÓMEZ MCMANUS Ot 305.1 09/24/2014 GÓMEZ MCMANUS L Ot 786.05 09/24/2014 GÓMEZ MCMANUS L Ot V12.55 09/24/2014 GÓMEZ MCMANUS Ot V58.69 09/28/2014 KITA PAYNE, SALIMA A Ot 415.19 09/28/2014 KITA PAYNE, SALIMA A Ot 786.09 10/07/2014 KITA PAYNE, SALIMA A Ot 415.19 10/07/2014 KITA PAYNE, SALIMA A Ot 786.09 10/21/2014 ASYA RODRIGUEZ DO M Ot 278.00 10/21/2014 ASYA RODRIGUEZ DO M Ot 305.1 10/21/2014 ASYA RODRIGUEZ DO M Ot 786.05 10/21/2014 ASYA RODRIGUEZ DO M Ot V12.55 10/21/2014 ELISABET, BOBAN N Ot V10.44 10/21/2014 ELISABET, BOBAN N Ot V12.51 10/21/2014 ELISABET, BOBAN N Ot V12.55 10/21/2014 ELISABET, BOBAN N Ot V45.77 10/21/2014 ELISABET, BOBAN N Ot V58.61 10/21/2014 ELISABET, BOBAN N Ot V58.69 10/21/2014 ELISABET, BOBAN N Ot V87.41 10/21/2014 KITA PAYNE, SALIMA A Ot 415.19 10/21/2014 KITA PAYNE, SALIMA A Ot 786.09 10/21/2014 HENRI CLARK AMINAH Mani Ot 569.3 10/21/2014 ASYA RODRIGUEZ DO M Ot 278.00 10/21/2014 ASYA RODRIGUEZ DO M Ot 305.1 10/21/2014 ASYA RODRIGUEZ DO Ot 786.05 10/21/2014 ASYA RODRIGUEZ DO Ot V12.55 10/21/2014 ELISABET, FELIX N Ot V10.44 10/21/2014 ELISABET, BOBAN N Ot V12.51 10/21/2014 ELISABET, KEVINAN N Ot V12.55 10/21/2014 ELISABET, FELIX N Ot V45.77 10/21/2014 ELISABET, BOBAN N Ot V58.61 10/21/2014 ELISBAET, BOBAN N Ot V58.69 10/21/2014 ELISABET, BOBAN N Ot V87.41 10/21/2014 KITA PAYNE, SALIMA A Ot 415.19 10/21/2014 KITA PAYNE, SALIMA A Ot 786.09 10/21/2014 AMINAH ÁLVAREZ DO Ot 569.3 10/21/2014 AMPARO WHITE MANUFACTURING PROCESS TECHNICIAN Ot 305.1 10/21/2014 AMPARO WHITE MANUFACTURING PROCESS TECHNICIAN Ot 427.89 10/21/2014 AMPARO WHITE MANUFACTURING PROCESS TECHNICIAN Ot 786.05 10/21/2014 AMPARO WHITE MANUFACTURING PROCESS TECHNICIAN Ot V12.55 11/08/2014 BRIT PAYNE, RICK Singleton Ot 427.89 CARDIAC DYSRHYTHMIAS NEC 11/08/2014 BRIT PAYNE, RICK Singleton Ot V12.55 PERSONAL HISTORY OF PULMONARY EMBOLISM 11/19/2014 ELISABET, FELIX N Ot V10.44 11/19/2014 ELISABET, FELIX N Ot V12.51 11/19/2014 ELISABET, BOBAN N Ot V12.55 11/19/2014 ELISABET, BOBAN N Ot V45.77 11/19/2014 ELISABET, BOBAN N Ot V58.61 11/19/2014 ELISABET, BOBAN N Ot V58.69 11/19/2014 ELISABET, BOBAN N Ot V87.41 11/22/2014 ASYA RODRIGUEZ DO Ot 278.00 11/22/2014 ASYA RODRIGUEZ DO Ot 305.1 11/22/2014 ASYA RODRIGUEZ DO Ot 786.05 11/22/2014 ASYA RODRIGUEZ DO Ot V12.55 11/22/2014 ELISABET, BOBAN N Ot V10.44 11/22/2014 ELISABET, BOBAN N Ot V12.51 11/22/2014 ELISABET, BOBAN N Ot V12.55 11/22/2014 ELISABET, BOBAN N Ot V45.77 11/22/2014 ELISABET, BOBAN N Ot V58.61 11/22/2014 ELISABET, BOBAN N Ot V58.69 11/22/2014 ELISABET, BOBAN N Ot V87.41 11/22/2014 KITA PAYNE, SALIMA A Ot 415.19 11/22/2014 KITA PAYNE, SALIMA A Ot 786.09 11/29/2014 LETICIA BOCANEGRA DO Ot 306.1 PSYCHOGENIC RESPIR DIS 11/29/2014 LETICIA BOCANEGRA DO Ot 785.1 PALPITATIONS 12/16/2014 BRIT PAYNE, RICK Singleton Ot 723.1 CERVICALGIA 12/16/2014 BRIT PAYNE, RICK Singleton Ot 782.0 SKIN SENSATION DISTURB 12/20/2014 ELISABET, BOBAN N Ot V10.44 12/20/2014 ELISABET, BOBAN N Ot V12.51 12/20/2014 ELISABET, BOBAN N Ot V12.55 12/20/2014 ELISABET, FELIX N Ot V45.77 12/20/2014 ELISABET, BOBHANNA N Ot V58.61 12/20/2014 ELISABET, BOBAN N Ot V58.69 12/20/2014 ELISABET, BOBAN N Ot V87.41 12/27/2014 LONNY PAYNE, JAG Garcia Ot 305.1 12/27/2014 LONNY PAYNE, JAG Garcia Ot 415.19 12/27/2014 JAG MUKHERJEE MD Ot 785.1 12/27/2014 LONNY PAYNE, JAG Garcia Ot 786.05 01/05/2015 ELISABET, BOBAN N Ot V10.44 01/05/2015 ELISABET, BOBAN N Ot V12.51 01/05/2015 ELISABET, BOBAN N Ot V12.55 01/05/2015 ELISABET, BOBAN N Ot V45.77 01/05/2015 ELISABET, BOBAN N Ot V58.61 01/05/2015 ELISABET, BOBAN N Ot V58.69 01/05/2015 ELISABET, BOBAN N Ot V87.41 01/05/2015 GÓMEZ MCMANUS Ot 300.00 ANXIETY STATE NOS 01/05/2015 GÓMEZ MCMANUS Ot 380.10 INFEC OTITIS EXTERNA NOS 01/05/2015 GÓMEZ MCMANUS Ot 785.1 PALPITATIONS 01/05/2015 GÓMEZ MCMANUS Ot 786.05 SHORTNESS OF BREATH 01/05/2015 GÓMEZ MCMANUS Ot V58.69 OT MED,LT,CURRENT USE 01/06/2015 JAG MUKHERJEE MD Ot 305.1 01/06/2015 JAG MUKHERJEE MD Ot 415.19 01/06/2015 JAG MUKHERJEE MD Ot 785.1 01/06/2015 JAG MUKHERJEE MD Ot 786.05 01/19/2015 ARTIE RENE L TEACHER EDUCATION INSTRUCTOR Ot 240.9 01/19/2015 CHERIE RENEIA L TEACHER EDUCATION INSTRUCTOR Ot 625.9 01/19/2015 MARILUZ RENERICIA L TEACHER EDUCATION INSTRUCTOR Ot 625.9 01/30/2015 EDGARD ARTIE L TEACHER EDUCATION INSTRUCTOR Ot 415.19 01/30/2015 EDGARD ARTIE L TEACHER EDUCATION INSTRUCTOR Ot 427.89 01/30/2015 MARILUZ RENERICIA L TEACHER EDUCATION INSTRUCTOR Ot 435.9 02/09/2015 AMINAH RENE DO J Ot 276.51 02/10/2015 MARILUZ RENERICIA L TEACHER EDUCATION INSTRUCTOR Ot 276.51 02/10/2015 MARILUZ RENERICIA L TEACHER EDUCATION INSTRUCTOR Ot 276.51 02/14/2015 EDGARD ARTIE L TEACHER EDUCATION INSTRUCTOR Ot 276.51 02/14/2015 EDGARD ARTIE L TEACHER EDUCATION INSTRUCTOR Ot 276.51 02/16/2015 EDGARD ARTIE L TEACHER EDUCATION INSTRUCTOR Ot 276.51 02/17/2015 MARILUZ RENERICIA L TEACHER EDUCATION INSTRUCTOR Ot 415.19 02/17/2015 MARILUZ RENERICIA L TEACHER EDUCATION INSTRUCTOR Ot 427.89 02/17/2015 CHERIE RENEIA L TEACHER EDUCATION INSTRUCTOR Ot 435.9 02/20/2015 JAG MUKHERJEE MD Ot 305.1 02/20/2015 JAG MUKHERJEE MD Ot 415.19 02/20/2015 JAG MUKHERJEE MD, Ot 785.1 02/20/2015 LONNY PAYNE, JAG Garcia Ot 786.05 02/23/2015 ARTIE RENE TEACHER EDUCATION INSTRUCTOR Ot 276.51 02/23/2015 ARTIE RENE TEACHER EDUCATION INSTRUCTOR Ot 276.51 02/23/2015 ARTIE RENE TEACHER EDUCATION INSTRUCTOR Ot 276.51 03/02/2015 ARTIE RENE TEACHER EDUCATION INSTRUCTOR Ot 276.51 03/07/2015 DEWAYNE SEO MD Ot 780.2 SYNCOPE AND COLLAPSE 03/07/2015 DEWAYNE SEO MD Ot V12.55 PERSONAL HISTORY OF PULMONARY EMBOLISM 03/07/2015 DEWAYNE SEO MD Ot V58.61 ANTICOAGULANTS,LT,CURRENT USE 03/07/2015 DEWAYNE SEO MD Ot V58.69 OTH MED,LT,CURRENT USE 03/08/2015 ARTIE RENE TEACHER EDUCATION INSTRUCTOR Ot 041.00 03/08/2015 ARTIE RENE TEACHER EDUCATION INSTRUCTOR Ot V58.61 03/08/2015 ARTIE RENE L TEACHER EDUCATION INSTRUCTOR Ot 041.00 03/08/2015 CHERIE RENEIA Deloris TEACHER EDUCATION INSTRUCTOR Ot V58.61 03/08/2015 ARTIE RENE TEACHER EDUCATION INSTRUCTOR Ot 041.00 03/08/2015 ARTIE RENE TEACHER EDUCATION INSTRUCTOR Ot V58.61 03/09/2015 CHERIE RENEIA L TEACHER EDUCATION INSTRUCTOR Ot 041.00 03/09/2015 CHERIE RENEIA L TEACHER EDUCATION INSTRUCTOR Ot V58.61 03/09/2015 CHERIE RENEIA L TEACHER EDUCATION INSTRUCTOR Ot 276.51 03/09/2015 TROY MULLEN TEACHER EDUCATION INSTRUCTOR Ot V10.44 03/09/2015 TROY MULLEN TEACHER EDUCATION INSTRUCTOR Ot V12.51 03/09/2015 TROY MULLEN TEACHER EDUCATION INSTRUCTOR Ot V12.55 03/09/2015 TROY MULLEN TEACHER EDUCATION INSTRUCTOR Ot V45.77 03/09/2015 TROY MULLEN TEACHER EDUCATION INSTRUCTOR Ot V58.61 03/09/2015 TROY MULLEN TEACHER EDUCATION INSTRUCTOR Ot V58.69 03/09/2015 TROY MULLEN TEACHER EDUCATION INSTRUCTOR Ot V87.41 03/10/2015 ARTIE RENE TEACHER EDUCATION INSTRUCTOR Ot 041.00 03/10/2015 RENEMARILUZARTIE L TEACHER EDUCATION INSTRUCTOR Ot V58.61 03/12/2015 RENE, ARTIE L TEACHER EDUCATION INSTRUCTOR Ot 041.00 03/12/2015 RENEMARILUZARTIE L TEACHER EDUCATION INSTRUCTOR Ot V58.61 03/14/2015 RENEMARILUZARTIE L TEACHER EDUCATION INSTRUCTOR Ot 041.00 03/14/2015 RENECHERIEIA L TEACHER EDUCATION INSTRUCTOR Ot V58.61 03/17/2015 LONNY PAYNE, JAG Garcia Ot 305.1 03/17/2015 LONNY PAYNE, JAG Garcia Ot 415.19 03/17/2015 LONNY PAYNE, JAG Garcia Ot 785.1 03/17/2015 LONNY PAYNE, JAG Garcia Ot 786.05 03/17/2015 ELISABET, BOBAN N Ot V10.44 03/17/2015 ELISABET, BOBAN N Ot V12.51 03/17/2015 ELISABET, BOBAN N Ot V12.55 03/17/2015 ELISABET, BOBAN N Ot V45.77 03/17/2015 ELISABET, BOBAN N Ot V58.61 03/17/2015 ELISABET, BOBAN N Ot V58.69 03/17/2015 ELISABET, BOBAN N Ot V87.41 03/17/2015 RENE, ARTIE L TEACHER EDUCATION INSTRUCTOR Ot 240.9 03/17/2015 RENE, ARTIE L TEACHER EDUCATION INSTRUCTOR Ot 625.9 03/17/2015 RENE, ARTIE L TEACHER EDUCATION INSTRUCTOR Ot 625.9 03/17/2015 RENE, ARTIE L TEACHER EDUCATION INSTRUCTOR Ot 415.19 03/17/2015 RENE, ARTIE L TEACHER EDUCATION INSTRUCTOR Ot 427.89 03/17/2015 RENE, ARTIE L TEACHER EDUCATION INSTRUCTOR Ot 435.9 03/17/2015 AMINAH RENE DO J Ot 276.51 03/17/2015 EDGARD ARTIE L TEACHER EDUCATION INSTRUCTOR Ot 276.51 03/17/2015 TROY MULLEN TEACHER EDUCATION INSTRUCTOR Ot V10.44 03/17/2015 TROY MULLEN TEACHER EDUCATION INSTRUCTOR Ot V12.51 03/17/2015 TROY MULLEN TEACHER EDUCATION INSTRUCTOR Ot V12.55 03/17/2015 TROY MULLEN TEACHER EDUCATION INSTRUCTOR Ot V45.77 03/17/2015 TROY MULLEN TEACHER EDUCATION INSTRUCTOR Ot V58.61 03/17/2015 TROY MULLEN TEACHER EDUCATION INSTRUCTOR Ot V58.69 03/17/2015 TROY MULLEN TEACHER EDUCATION INSTRUCTOR Ot V87.41 03/17/2015 LONNY PAYNE, JAG Garcia Ot 305.1 03/17/2015 LONNY PAYNE, JAG Garcia Ot 415.19 03/17/2015 JAG MUKHERJEE MD Ot 785.1 03/17/2015 JAG MUKHERJEE MD Ot 786.05 03/17/2015 ARTIE RENE TEACHER EDUCATION INSTRUCTOR Ot 041.00 03/17/2015 ARTIE RENE TEACHER EDUCATION INSTRUCTOR Ot V58.61 03/17/2015 LETICIA BOCANEGRA DO Ot 369.9 VISUAL LOSS NOS 03/17/2015 ARTIE RENE TEACHER EDUCATION INSTRUCTOR Ot 041.00 03/17/2015 ARTIE RENE TEACHER EDUCATION INSTRUCTOR Ot V58.61 03/20/2015 JAG MUKHERJEE MD Ot 305.1 03/20/2015 JAG MUKHERJEE MD Ot 415.19 03/20/2015 JAG MUKHERJEE MD Ot 785.1 03/20/2015 JAG MUKHERJEE MD Ot 786.05 03/20/2015 ELISABET, BOBAN N Ot V10.44 03/20/2015 ELISABET, BOBAN N Ot V12.51 03/20/2015 ELISABET, BOBAN N Ot V12.55 03/20/2015 ELISABET, BOBAN N Ot V45.77 03/20/2015 ELISABET, BOBAN N Ot V58.61 03/20/2015 ELISABET, BOBAN N Ot V58.69 03/20/2015 ELISABET, BOBAN N Ot V87.41 03/20/2015 ARTIE RENE TEACHER EDUCATION INSTRUCTOR Ot 240.9 03/20/2015 ARTIE RENE TEACHER EDUCATION INSTRUCTOR Ot 625.9 03/20/2015 ARTIE RENE TEACHER EDUCATION INSTRUCTOR Ot 625.9 03/20/2015 ARTIE RENE TEACHER EDUCATION INSTRUCTOR Ot 415.19 03/20/2015 ARTIE RENE TEACHER EDUCATION INSTRUCTOR Ot 427.89 03/20/2015 ARTIE RENE TEACHER EDUCATION INSTRUCTOR Ot 435.9 03/20/2015 AMINAH RENE DO J Ot 276.51 03/20/2015 ARTIE RENE TEACHER EDUCATION INSTRUCTOR Ot 276.51 03/20/2015 MULLENTROY Gagnon S TEACHER EDUCATION INSTRUCTOR Ot V10.44 03/20/2015 MULLENTROY Gagnon S TEACHER EDUCATION INSTRUCTOR Ot V12.51 03/20/2015 MULLEN HILAH S TEACHER EDUCATION INSTRUCTOR Ot V12.55 03/20/2015 MULLEN, HILAH S TEACHER EDUCATION INSTRUCTOR Ot V45.77 03/20/2015 MULLENDWAYNEAH S TEACHER EDUCATION INSTRUCTOR Ot V58.61 03/20/2015 MULLENTROY S TEACHER EDUCATION INSTRUCTOR Ot V58.69 03/20/2015 MULLENTROY Gagnon S TEACHER EDUCATION INSTRUCTOR Ot V87.41 03/20/2015 LONNY PAYNE, JAG Gacria Ot 305.1 03/20/2015 LONNY PAYNE, JAG Garcia Ot 415.19 03/20/2015 JAG MUKHERJEE MD Ot 785.1 03/20/2015 JAG MUKHERJEE MD Ot 786.05 03/20/2015 ARTIE RENE TEACHER EDUCATION INSTRUCTOR Ot 041.00 03/20/2015 ARTIE RENE TEACHER EDUCATION INSTRUCTOR Ot V58.61 03/21/2015 ELISABET, BOBAN N Ot V10.44 03/21/2015 ELISABET, BOBAN N Ot V12.51 03/21/2015 ELISABET, BOBAN N Ot V12.55 03/21/2015 ELISABET, BOBAN N Ot V45.77 03/21/2015 ELISABET, BOBAN N Ot V58.61 03/21/2015 ELISABET, BOBAN N Ot V58.69 03/21/2015 ELISABET, BOBAN N Ot V87.41 03/21/2015 LONNY PAYNE, JAG Garcia Ot 305.1 03/21/2015 JAG MUKHERJEE MD Ot 415.19 03/21/2015 JAG MUKHERJEE MD Ot 785.1 03/21/2015 JAG MUKHERJEE MD Ot 786.05 03/21/2015 ARTIE RENE TEACHER EDUCATION INSTRUCTOR Ot 041.00 03/21/2015 ARTIE RENE TEACHER EDUCATION INSTRUCTOR Ot V58.61 03/21/2015 ARTIE RENE TEACHER EDUCATION INSTRUCTOR Ot 041.00 03/21/2015 ARTIE RENE TEACHER EDUCATION INSTRUCTOR Ot V58.61 03/21/2015 FELIX COLLIER N Ot V10.44 03/21/2015 ELISABETFELIX FARRIS N Ot V12.51 03/21/2015 ELISABETFELIX FARRIS N Ot V12.55 03/21/2015 ELISABETFELIX FARRIS N Ot V45.77 03/21/2015 FELIX COLLIER N Ot V58.61 03/21/2015 ELISABETFELIX FARRIS N Ot V58.69 03/21/2015 FELIX COLLIER N Ot V87.41 03/21/2015 LONNY PAYNE, JAG Garcia Ot 305.1 03/21/2015 LONNY PAYNE, JAG Garcia Ot 415.19 03/21/2015 LONNY PAYNE, JAG Garcia Ot 785.1 03/21/2015 LONNY PAYNE, JAG Garcia Ot 786.05 03/21/2015 ARTIE RENE TEACHER EDUCATION INSTRUCTOR Ot 041.00 03/21/2015 ARTIE RENE TEACHER EDUCATION INSTRUCTOR Ot V58.61 03/22/2015 ARTIE RENE TEACHER EDUCATION INSTRUCTOR Ot 276.51 DEHYDRATION 03/22/2015 ARTIE RENE TEACHER EDUCATION INSTRUCTOR Ot 041.00 BACTERIAL INFEC DUE TO UNSPECIFIED STREP 03/22/2015 ARTIE RENE TEACHER EDUCATION INSTRUCTOR Ot V58.61 ANTICOAGULANTS,LT,CURRENT USE 03/24/2015 ARTIE RENE TEACHER EDUCATION INSTRUCTOR Ot 276.51 03/27/2015 ARTIE RENE TEACHER EDUCATION INSTRUCTOR Ot 276.51 03/31/2015 ARTIE RENE TEACHER EDUCATION INSTRUCTOR Ot 276.51 04/04/2015 ARTIE RENE TEACHER EDUCATION INSTRUCTOR Ot E86.0 04/04/2015 ARTIE RENE TEACHER EDUCATION INSTRUCTOR Ot E86.0 04/07/2015 ARTIE RENE TEACHER EDUCATION INSTRUCTOR Ot E86.0 04/10/2015 ARTIE RENE TEACHER EDUCATION INSTRUCTOR Ot 346.90 04/10/2015 ARTIE RENE TEACHER EDUCATION INSTRUCTOR Ot 369.9 04/10/2015 ARTIE RENE TEACHER EDUCATION INSTRUCTOR Ot E86.0 04/14/2015 RENE, ARTIE L TEACHER EDUCATION INSTRUCTOR Ot E86.0 04/17/2015 RENE, ARTIE L TEACHER EDUCATION INSTRUCTOR Ot E86.0 04/17/2015 RENE, ARTIE L TEACHER EDUCATION INSTRUCTOR Ot E86.0 04/19/2015 RENE, ARTIE L TEACHER EDUCATION INSTRUCTOR Ot E86.0 04/20/2015 RENE, ARTIE L TEACHER EDUCATION INSTRUCTOR Ot E86.0 04/21/2015 RENE, ARTIE L TEACHER EDUCATION INSTRUCTOR Ot E86.0 04/24/2015 RENE, ARTIE L TEACHER EDUCATION INSTRUCTOR Ot E86.0 04/26/2015 RENE, ARTIE L TEACHER EDUCATION INSTRUCTOR Ot E86.0 04/28/2015 RENE, ARTIE L TEACHER EDUCATION INSTRUCTOR Ot E86.0 05/01/2015 RENE, ARTIE L TEACHER EDUCATION INSTRUCTOR Ot E86.0 05/04/2015 RENE, ARTIE L TEACHER EDUCATION INSTRUCTOR Ot E04.1 05/04/2015 RENE, ARTIE L TEACHER EDUCATION INSTRUCTOR Ot R10.2 05/06/2015 RENE, ARTIE L TEACHER EDUCATION INSTRUCTOR Ot E86.0 05/08/2015 RENE, ARTIE L TEACHER EDUCATION INSTRUCTOR Ot E86.0 05/10/2015 RENE, ARTIE L TEACHER EDUCATION INSTRUCTOR Ot E86.0 06/22/2015 RENE, ARTIE L TEACHER EDUCATION INSTRUCTOR Ot E86.0 DEHYDRATION 08/03/2015 LAURA ANGELES ANP Ot I26.99 OTHER PULMONARY EMBOLISM WITHOUT ACUTE C 08/03/2015 LAURA ANGELES ANP Ot I82.401 ACUTE EMBOLISM AND THOMBOS UNSP DEEP VEI 08/03/2015 LAURA ANGELES ANP Ot I82.409 08/03/2015 LAURA ANGELES ANP Ot M79.1 MYALGIA 08/03/2015 LAURA ANGELES ANP Ot R50.9 FEVER, UNSPECIFIED 08/03/2015 LAURA ANGELES ANP Ot R53.82 CHRONIC FATIGUE, UNSPECIFIED 10/05/2015 LONNY PAYNE, JAG Garcia Ot 305.1 10/05/2015 LONNY PAYNE, JAG Garcia Ot 415.19 10/05/2015 JAG MUKHERJEE MD Ot 785.1 10/05/2015 LONNY PAYNE, JAG Garcia Ot 786.05 10/05/2015 FELIX COLLIER N Ot V10.44 10/05/2015 FELIX COLLIER N Ot V12.51 10/05/2015 ELISABETFELIX FARRIS N Ot V12.55 10/05/2015 ELISABETFELIX FARRIS N Ot V45.77 10/05/2015 FELIX COLLIER N Ot V58.61 10/05/2015 ELISABETFELIX FARRIS N Ot V58.69 10/05/2015 FELIX COLLIER N Ot V87.41 10/05/2015 ARTIE RENE TEACHER EDUCATION INSTRUCTOR Ot 240.9 10/05/2015 ARTIE RENE TEACHER EDUCATION INSTRUCTOR Ot 625.9 10/05/2015 ARTIE RENE TEACHER EDUCATION INSTRUCTOR Ot 625.9 10/05/2015 ARTIE RENE TEACHER EDUCATION INSTRUCTOR Ot 415.19 10/05/2015 ARTIE RENE TEACHER EDUCATION INSTRUCTOR Ot 427.89 10/05/2015 ARTIE RENE TEACHER EDUCATION INSTRUCTOR Ot 435.9 10/05/2015 AMINAH RENE DO Ot 276.51 10/05/2015 TROY MULLEN TEACHER EDUCATION INSTRUCTOR Ot V10.44 10/05/2015 TROY MULLEN TEACHER EDUCATION INSTRUCTOR Ot V12.51 10/05/2015 TROY MULLEN S TEACHER EDUCATION INSTRUCTOR Ot V12.55 10/05/2015 TROY MULLEN TEACHER EDUCATION INSTRUCTOR Ot V45.77 10/05/2015 TROY MULLEN TEACHER EDUCATION INSTRUCTOR Ot V58.61 10/05/2015 TROY MULLEN S TEACHER EDUCATION INSTRUCTOR Ot V58.69 10/05/2015 TROY MULLEN S TEACHER EDUCATION INSTRUCTOR Ot V87.41 10/05/2015 LONNY PAYNE, JAG Garcia Ot 305.1 10/05/2015 LONNY PAYNE, JAG Garcia Ot 415.19 10/05/2015 LONNY PAYNE, JAG Garcia Ot 785.1 10/05/2015 LONNY PAYNE, JAG Garcia Ot 786.05 10/05/2015 ARTIE RENE TEACHER EDUCATION INSTRUCTOR Ot 346.90 10/05/2015 ARTIE RENE TEACHER EDUCATION INSTRUCTOR Ot 369.9 10/05/2015 ARTIE RENE TEACHER EDUCATION INSTRUCTOR Ot 041.00 10/05/2015 ARTIE RENE TEACHER EDUCATION INSTRUCTOR Ot V58.61 10/05/2015 ARTIE RENE TEACHER EDUCATION INSTRUCTOR Ot E04.1 10/05/2015 ARTIE RENE TEACHER EDUCATION INSTRUCTOR Ot R10.2 10/05/2015 ARTIE RENE TEACHER EDUCATION INSTRUCTOR Ot E86.0 10/05/2015 LAURA ANGELES ANP Ot I26.99 10/05/2015 LAURA ANGELES ANP Ot I82.409 10/05/2015 LAURA ANGELES ANP Ot M79.1 10/05/2015 LAURA ANGELES ANP Ot R50.9 10/05/2015 LAURA ANGELES ANP Ot R53.82 10/05/2015 LARRY MCKEON MANUFACTURING PROCESS TECHNICIAN Ot R22.1 10/09/2015 LARRY MCKEON MANUFACTURING PROCESS TECHNICIAN Ot R22.1 LOCALIZED SWELLING, MASS AND LUMP, NECK 10/16/2015 AIMEE BRAMBILA DOLINE S Ot Z12.31 ENCNTR SCREEN MAMMOGRAM FOR MALIGNANT NE 10/19/2015 LARRY MCKEON MANUFACTURING PROCESS TECHNICIAN Ot R22.1 LOCALIZED SWELLING, MASS AND LUMP, NECK 10/25/2015 CHANTELLE PAYNE, SHAUNNA Swift Ot I26.99 OTHER PULMONARY EMBOLISM WITHOUT ACUTE C 10/25/2015 AIMEE BRAMBILA DOLINE S Ot Z12.31 ENCNTR SCREEN MAMMOGRAM FOR MALIGNANT NE 10/26/2015 CHANTELLE PAYNE, SHAUNNA M Ot R59.0 LOCALIZED ENLARGED LYMPH NODES 11/01/2015 CHANTELLE PAYNE, SHAUNNA M Ot I26.99 OTHER PULMONARY EMBOLISM WITHOUT ACUTE C 11/01/2015 CHANTELLE PAYNE, SHAUNNA M Ot R59.0 LOCALIZED ENLARGED LYMPH NODES 11/03/2015 CHANTELLE PAYNE, SHAUNNA Swift Ot R59.0 LOCALIZED ENLARGED LYMPH NODES 05/12/2016 AMPARO WHITE MANUFACTURING PROCESS TECHNICIAN Ot I10 ESSENTIAL (PRIMARY) HYPERTENSION 05/12/2016 AMPARO WHITE MANUFACTURING PROCESS TECHNICIAN Ot K52.9 NONINFECTIVE GASTROENTERITIS AND COLITIS 05/12/2016 AMPARO WHITE MANUFACTURING PROCESS TECHNICIAN Ot R11.2 NAUSEA WITH VOMITING, UNSPECIFIED 05/12/2016 AMPARO WHITE MANUFACTURING PROCESS TECHNICIAN Ot R74.8 ABNORMAL LEVELS OF OTHER SERUM ENZYMES 05/12/2016 AMPARO WHITE APRN Ot Z79.01 COMMERCIAL ATTORNEY (CURRENT) USE OF ANTICOAGULANT 05/12/2016 AMPARO WHITE APRN Ot Z79.899 OTHER COMMERCIAL ATTORNEY (CURRENT) DRUG THERAPY 05/12/2016 AMPARO WHITE APRN Ot Z86.711 PERSONAL HISTORY OF PULMONARY EMBOLISM 05/14/2016 AMPARO WHITE APRN Ot I10 ESSENTIAL (PRIMARY) HYPERTENSION 05/14/2016 AMPARO WHITE APRN Ot K52.9 NONINFECTIVE GASTROENTERITIS AND COLITIS 05/14/2016 AMPARO WHITE APRN Ot R11.2 NAUSEA WITH VOMITING, UNSPECIFIED 05/14/2016 AMPARO WHITE APRN Ot R74.8 ABNORMAL LEVELS OF OTHER SERUM ENZYMES 05/14/2016 AMPARO WHITE APRN Ot Z79.01 SENIOR LIVING (CURRENT) USE OF ANTICOAGULANT 05/14/2016 AMPARO WHITE APRN Ot Z79.899 OTHER COMMERCIAL ATTORNEY (CURRENT) DRUG THERAPY 05/14/2016 AMPARO WHITE APRN Ot Z86.711 PERSONAL HISTORY OF PULMONARY EMBOLISM 05/14/2016 JAG MUKHERJEE MD Ot 305.1 TOBACCO USE DISORDER 05/14/2016 JAG MUKHERJEE MD Ot 415.19 OTH PULMON EMBOLISM/INFARCT 05/14/2016 JAG MUKHERJEE MD Ot 785.1 PALPITATIONS 05/14/2016 JAG MUKHERJEE MD Ot 786.05 SHORTNESS OF BREATH 05/14/2016 FELIX COLLIER Ot 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 05/14/2016 FELIX COLLIER Ot V12.51 HX-VENOUS THROMBOSIS EMBOLISM 05/14/2016 FELIX COLLIER Ot V12.55 PERSONAL HISTORY OF PULMONARY EMBOLISM 05/14/2016 FELIX COLLIER Ot V45.77 ACQRD ABSENCE OF GENITAL ORGANS 05/14/2016 FELIX COLLIER Ot V58.61 ANTICOAGULANTS,LT,CURRENT USE 05/14/2016 FELIX COLLIER Ot V58.69 OTH MED,LT,CURRENT USE 05/14/2016 FELIX COLLIER Ot V87.41 PERSONAL HISTORY OF ANTINEOPLASTIC CHEMO 05/14/2016 ARTIE RENE TEACHER EDUCATION INSTRUCTOR Ot 240.9 GOITER NOS 05/14/2016 ARTIE RENE TEACHER EDUCATION INSTRUCTOR Ot 625.9 FEM GENITAL SYMPTOMS NOS 05/14/2016 ARTIE RENE TEACHER EDUCATION INSTRUCTOR Ot 625.9 FEM GENITAL SYMPTOMS NOS 05/14/2016 ARTIE RENE TEACHER EDUCATION INSTRUCTOR Ot 415.19 OTH PULMON EMBOLISM/INFARCT 05/14/2016 ARTIE RENE TEACHER EDUCATION INSTRUCTOR Ot 427.89 CARDIAC DYSRHYTHMIAS NEC 05/14/2016 ARTIE RENE TEACHER EDUCATION INSTRUCTOR Ot 435.9 TRANS CEREB ISCHEMIA NOS 05/14/2016 AMINAH RENE DO Ot 276.51 DEHYDRATION 05/14/2016 TROY MULLEN TEACHER EDUCATION INSTRUCTOR Ot 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 05/14/2016 TROY MULLEN TEACHER EDUCATION INSTRUCTOR Ot V12.51 HX-VENOUS THROMBOSIS EMBOLISM 05/14/2016 TROY MULLEN TEACHER EDUCATION INSTRUCTOR Ot V12.55 PERSONAL HISTORY OF PULMONARY EMBOLISM 05/14/2016 TROY MULLENP Ot V45.77 ACQRD ABSENCE OF GENITAL ORGANS 05/14/2016 TROY MULLEN TEACHER EDUCATION INSTRUCTOR Ot V58.61 ANTICOAGULANTS,LT,CURRENT USE 05/14/2016 TROY MULLENP Ot V58.69 OTH MED,LT,CURRENT USE 05/14/2016 TROY MULLEN TEACHER EDUCATION INSTRUCTOR Ot V87.41 PERSONAL HISTORY OF ANTINEOPLASTIC CHEMO 05/14/2016 JAG MUKHERJEE MD Ot 305.1 TOBACCO USE DISORDER 05/14/2016 JAG MUKHERJEE MD Ot 415.19 OTH PULMON EMBOLISM/INFARCT 05/14/2016 JAG MUKHERJEE MD Ot 785.1 PALPITATIONS 05/14/2016 JAG MUKHERJEE MD Ot 786.05 SHORTNESS OF BREATH 05/14/2016 ARTIE RENE TEACHER EDUCATION INSTRUCTOR Ot 346.90 MIGRAINE UNSPECIFIED W/O INTRACT MGRN W/ 05/14/2016 ARTIE RENE TEACHER EDUCATION INSTRUCTOR Ot 369.9 VISUAL LOSS NOS 05/14/2016 ARTIE RENE TEACHER EDUCATION INSTRUCTOR Ot 041.00 05/14/2016 ARTIE RENE TEACHER EDUCATION INSTRUCTOR Ot V58.61 05/14/2016 ARTIE RENE TEACHER EDUCATION INSTRUCTOR Ot E04.1 NONTOXIC SINGLE THYROID NODULE 05/14/2016 RENEARTIE WHITAKER TEACHER EDUCATION INSTRUCTOR Ot R10.2 PELVIC AND PERINEAL PAIN 05/14/2016 RENEARTIE WHITAKER TEACHER EDUCATION INSTRUCTOR Ot E86.0 DEHYDRATION 05/14/2016 LAURA ANGELES ANP Ot I26.99 OTHER PULMONARY EMBOLISM WITHOUT ACUTE C 05/14/2016 LAURA ANGELES ANP Ot I82.409 ACUTE EMBOLISM AND THOMBOS UNSP DEEP VN 05/14/2016 LAURA ANGELES ANP Ot M79.1 MYALGIA 05/14/2016 LAURA ANGELES ANP Ot R50.9 FEVER, UNSPECIFIED 05/14/2016 LAURA ANGELES ANP Ot R53.82 CHRONIC FATIGUE, UNSPECIFIED 05/14/2016 LARRY MCKEON MANUFACTURING PROCESS TECHNICIAN Ot R22.1 LOCALIZED SWELLING, MASS AND LUMP, NECK 05/14/2016 KRSITINE BRAMBILA DO Ot Z12.31 ENCNTR SCREEN MAMMOGRAM FOR MALIGNANT NE 05/14/2016 CHANTELLE PAYNE, SHAUNNA Swift Ot I26.99 OTHER PULMONARY EMBOLISM WITHOUT ACUTE C 05/14/2016 CHANTELLE PAYNE, SHAUNNA Swift Ot R59.0 LOCALIZED ENLARGED LYMPH NODES 2016 AMPARO WHITE APRN Ot I10 ESSENTIAL (PRIMARY) HYPERTENSION 2016 AMPARO WHITE APRN Ot K52.9 NONINFECTIVE GASTROENTERITIS AND COLITIS 2016 AMPARO WHITE APRN Ot R11.2 NAUSEA WITH VOMITING, UNSPECIFIED 2016 AMPARO WHITE APRN Ot R74.8 ABNORMAL LEVELS OF OTHER SERUM ENZYMES 2016 AMPARO WHITE APRN Ot Z79.01 SENIOR LIVING (CURRENT) USE OF ANTICOAGULANT 2016 AMPARO WHITE APRN Ot Z79.899 OTHER COMMERCIAL ATTORNEY (CURRENT) DRUG THERAPY 2016 AMPARO WHITE APRN Ot Z86.711 PERSONAL HISTORY OF PULMONARY EMBOLISM 05/24/2016 AMPARO WHITE APRN Ot I10 ESSENTIAL (PRIMARY) HYPERTENSION 05/24/2016 AMPARO WHITE APRN Ot K52.9 NONINFECTIVE GASTROENTERITIS AND COLITIS 05/24/2016 AMPARO WHITE APRN Ot R11.2 NAUSEA WITH VOMITING, UNSPECIFIED 05/24/2016 AMPARO WHITE APRN Ot R74.8 ABNORMAL LEVELS OF OTHER SERUM ENZYMES 05/24/2016 AMPARO WHITE APRN Ot Z79.01 COMMERCIAL ATTORNEY (CURRENT) USE OF ANTICOAGULANT 05/24/2016 AMPARO WHITE APRN Ot Z79.899 OTHER SENIOR LIVING (CURRENT) DRUG THERAPY 05/24/2016 AMPARO WHITE APRN Ot Z86.711 PERSONAL HISTORY OF PULMONARY EMBOLISM 07/07/2016 RICK PEREA MD Ot F17.210 NICOTINE DEPENDENCE, CIGARETTES, UNCOMPL 07/07/2016 RICK PEREA MD, Ot I10 ESSENTIAL (PRIMARY) HYPERTENSION 07/07/2016 RICK PEREA MD, Ot J40 BRONCHITIS, NOT SPECIFIED ACUTE OR CH 07/07/2016 RICK PEREA MD, Ot R06.02 SHORTNESS OF BREATH 07/07/2016 RICK PEREA MD, Ot Z79.01 SENIOR LIVING (CURRENT) USE OF ANTICOAGULANT 07/07/2016 RICK PEREA MD, Ot Z79.899 OTHER COMMERCIAL ATTORNEY (CURRENT) DRUG THERAPY 07/07/2016 RICK PEREA MD, Ot Z86.711 PERSONAL HISTORY OF PULMONARY EMBOLISM 07/07/2016 JAG MUKHERJEE MD Ot 305.1 TOBACCO USE DISORDER 07/07/2016 JAG MUKHERJEE MD Ot 415.19 OTH PULMON EMBOLISM/INFARCT 07/07/2016 JAG MUKHERJEE MD Ot 785.1 PALPITATIONS 07/07/2016 JAG MUKHERJEE MD Ot 786.05 SHORTNESS OF BREATH 07/07/2016 FELIX COLLIER Ot 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 07/07/2016 FELIX COLLIER Ot V12.51 HX-VENOUS THROMBOSIS EMBOLISM 07/07/2016 FELIX COLLIER Ot V12.55 PERSONAL HISTORY OF PULMONARY EMBOLISM 07/07/2016 FELIX COLLIER Ot V45.77 ACQRD ABSENCE OF GENITAL ORGANS 07/07/2016 FELIX COLLIER Ot V58.61 ANTICOAGULANTS,LT,CURRENT USE 07/07/2016 FELIX COLLIER Ot V58.69 OTH MED,LT,CURRENT USE 07/07/2016 FELIX COLLIER Ot V87.41 PERSONAL HISTORY OF ANTINEOPLASTIC CHEMO 07/07/2016 ARTIE RENE TEACHER EDUCATION INSTRUCTOR Ot 240.9 GOITER NOS 07/07/2016 ARTIE RENE TEACHER EDUCATION INSTRUCTOR Ot 625.9 FEM GENITAL SYMPTOMS NOS 07/07/2016 ARTIE RENE TEACHER EDUCATION INSTRUCTOR Ot 625.9 FEM GENITAL SYMPTOMS NOS 07/07/2016 ARTIE RENE TEACHER EDUCATION INSTRUCTOR Ot 415.19 OTH PULMON EMBOLISM/INFARCT 07/07/2016 ARTIE RENE TEACHER EDUCATION INSTRUCTOR Ot 427.89 CARDIAC DYSRHYTHMIAS NEC 07/07/2016 ARTIE RENE TEACHER EDUCATION INSTRUCTOR Ot 435.9 TRANS CEREB ISCHEMIA NOS 07/07/2016 AMINAH RENE DO Ot 276.51 DEHYDRATION 07/07/2016 TROY MULLEN TEACHER EDUCATION INSTRUCTOR Ot 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 07/07/2016 TROY MULLEN TEACHER EDUCATION INSTRUCTOR Ot V12.51 HX-VENOUS THROMBOSIS EMBOLISM 07/07/2016 TROY MULLENP Ot V12.55 PERSONAL HISTORY OF PULMONARY EMBOLISM 07/07/2016 TROY MULLENP Ot V45.77 ACQRD ABSENCE OF GENITAL ORGANS 07/07/2016 TROY MULLEN TEACHER EDUCATION INSTRUCTOR Ot V58.61 ANTICOAGULANTS,LT,CURRENT USE 07/07/2016 TROY MULLENP Ot V58.69 OTH MED,LT,CURRENT USE 07/07/2016 TROY MULLEN TEACHER EDUCATION INSTRUCTOR Ot V87.41 PERSONAL HISTORY OF ANTINEOPLASTIC CHEMO 07/07/2016 JAG MUKHERJEE MD Ot 305.1 TOBACCO USE DISORDER 07/07/2016 JAG MUKHERJEE MD Ot 415.19 OTH PULMON EMBOLISM/INFARCT 07/07/2016 JAG MUKHERJEE MD Ot 785.1 PALPITATIONS 07/07/2016 JAG MUKHERJEE MD Ot 786.05 SHORTNESS OF BREATH 07/07/2016 ARTIE RENE TEACHER EDUCATION INSTRUCTOR Ot 346.90 MIGRAINE UNSPECIFIED W/O INTRACT MGRN W/ 07/07/2016 ARTIE RENE TEACHER EDUCATION INSTRUCTOR Ot 369.9 VISUAL LOSS NOS 07/07/2016 ARTIE RENE TEACHER EDUCATION INSTRUCTOR Ot 041.00 07/07/2016 ARTIE RENE TEACHER EDUCATION INSTRUCTOR Ot V58.61 07/07/2016 ARTIE RENE TEACHER EDUCATION INSTRUCTOR Ot E04.1 NONTOXIC SINGLE THYROID NODULE 07/07/2016 ARTIE RENE TEACHER EDUCATION INSTRUCTOR Ot R10.2 PELVIC AND PERINEAL PAIN 07/07/2016 ARTIE RENE TEACHER EDUCATION INSTRUCTOR Ot E86.0 DEHYDRATION 07/07/2016 LAURA ANGELES ANP Ot I26.99 OTHER PULMONARY EMBOLISM WITHOUT ACUTE C 07/07/2016 LAURA ANGELES ANP Ot I82.409 ACUTE EMBOLISM AND THOMBOS UNSP DEEP VN 07/07/2016 LAURA ANGELES ANP Ot M79.1 MYALGIA 07/07/2016 LAURA ANGELES ANP Ot R50.9 FEVER, UNSPECIFIED 07/07/2016 LAURA ANGELES ANP Ot R53.82 CHRONIC FATIGUE, UNSPECIFIED 07/07/2016 MIKE LARRY Kelly MANUFACTURING PROCESS TECHNICIAN Ot R22.1 LOCALIZED SWELLING, MASS AND LUMP, NECK 07/07/2016 KRISTINE BRAMBILA DO Ot Z12.31 ENCNTR SCREEN MAMMOGRAM FOR MALIGNANT NE 07/07/2016 CHANTELLE PAYNE, SHAUNNA Swift Ot I26.99 OTHER PULMONARY EMBOLISM WITHOUT ACUTE C 07/07/2016 CHANTELLE PAYNE, SHAUNNA Swift Ot R59.0 LOCALIZED ENLARGED LYMPH NODES 07/09/2016 RICK PEREA MD Ot F17.210 NICOTINE DEPENDENCE, CIGARETTES, UNCOMPL 07/09/2016 RICK PEREA MD Ot I10 ESSENTIAL (PRIMARY) HYPERTENSION 07/09/2016 RICK PEREA MD Ot J40 BRONCHITIS, NOT SPECIFIED ACUTE OR CH 07/09/2016 RICK PEREA MD Ot R06.02 SHORTNESS OF BREATH 07/09/2016 RICK PEREA MD Ot Z79.01 SENIOR LIVING (CURRENT) USE OF ANTICOAGULANT 07/09/2016 RICK PEREA MD Ot Z79.899 OTHER COMMERCIAL ATTORNEY (CURRENT) DRUG THERAPY 07/09/2016 RICK PEREA MD Ot Z86.711 PERSONAL HISTORY OF PULMONARY EMBOLISM 02/10/2017 AMPARO WHITE APRN Ot F41.9 ANXIETY DISORDER, UNSPECIFIED 02/10/2017 AMPARO WHITE APRN Ot G43.909 MIGRAINE, UNSP, NOT INTRACTABLE, WITHOUT 02/10/2017 AMPARO WHITE MANUFACTURING PROCESS TECHNICIAN Ot I10 ESSENTIAL (PRIMARY) HYPERTENSION 02/10/2017 AMPARO WHITE APRN Ot R10.9 UNSPECIFIED ABDOMINAL PAIN 02/10/2017 AMPARO WHITE APRN Ot Z79.01 SENIOR LIVING (CURRENT) USE OF ANTICOAGULANT 02/10/2017 AMPARO WHITE APRN Ot Z85.42 PERSONAL HISTORY OF MALIGNANT NEOPLASM O 02/10/2017 AMPARO WHITE APRN Ot Z86.718 PERSONAL HISTORY OF OTHER VENOUS THROMBO 02/10/2017 AMPARO WHITE APRN Ot Z87.19 PERSONAL HISTORY OF OTHER DISEASES OF TH 02/10/2017 AMPARO WHITE APRN Ot Z87.59 PERSONAL HISTORY OF COMP OF PREG, CHLDBR 02/10/2017 AMPARO WHITE APRN Ot Z90.710 ACQUIRED ABSENCE OF BOTH CERVIX AND UTER 03/04/2017 KRISTINE BRAMBILA DO S Ot G93.2 BENIGN INTRACRANIAL HYPERTENSION 03/04/2017 YAHIRNDKRISTINE SHAW DO S Ot R10.31 RIGHT LOWER QUADRANT PAIN 03/12/2017 YAHIRNDKRISTINE SHAW DO S Ot G93.2 BENIGN INTRACRANIAL HYPERTENSION 03/12/2017 YAHIRNDER KRISTINE CLARK S Ot R10.31 RIGHT LOWER QUADRANT PAIN 03/19/2017 KRISTINE BRAMBILA DO S Ot 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, UNSPECIFIED 03/19/2017 KRISTINE BRAMBILA DO S Ot M54.2 CERVICALGIA 03/19/2017 KRISTINE BRAMBILA DO S Ot R59.0 LOCALIZED ENLARGED LYMPH NODES 04/11/2017 YAHIRNDER AIMEE CLARKLINE S Ot 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, UNSPECIFIED 04/11/2017 YAHIRNDER KRISTINE CLARK S Ot M54.2 CERVICALGIA 04/11/2017 YAHIRNDKRISTINE SHAW DO S Ot R59.0 LOCALIZED ENLARGED LYMPH NODES 07/22/2017 YAHIRNDKRISTINE SHAW DO S Ot R05 COUGH 07/22/2017 YAHIRNDKRISTINE SHAW DO S Ot R59.0 LOCALIZED ENLARGED LYMPH NODES 10/06/2017 KRISTINE BRAMBILA DO S Ot 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, UNSPECIFIED 10/06/2017 NEVA BRAMBILA DOQUELINE S Ot M54.2 CERVICALGIA 10/06/2017 ORENDER DO, KRISTINE S Ot R59.0 LOCALIZED ENLARGED LYMPH NODES 10/06/2017 ORENDER DO, KRISTINE S Ot G93.2 BENIGN INTRACRANIAL HYPERTENSION 10/06/2017 [facility] KRISTINE S Ot R10.31 RIGHT LOWER QUADRANT PAIN 10/06/2017 [facility], KRISTINE S Ot R05 COUGH 10/06/2017 ORENDER DO, KRISTINE S Ot R59.0 LOCALIZED ENLARGED LYMPH NODES 10/07/2017 VICKY, TAMMY R MANUFACTURING PROCESS TECHNICIAN Ot M25.511 PAIN IN RIGHT SHOULDER 10/07/2017 VICKY, TAMMY R MANUFACTURING PROCESS TECHNICIAN Ot M25.511 PAIN IN RIGHT SHOULDER 10/12/2017 VICKY, TAMMY R MANUFACTURING PROCESS TECHNICIAN Ot M25.511 PAIN IN RIGHT SHOULDER 10/15/2017 VICKY, TAMMY R MANUFACTURING PROCESS TECHNICIAN Ot Z12.31 ENCNTR SCREEN MAMMOGRAM FOR MALIGNANT NE 10/15/2017 VICKY, TAMMY R MANUFACTURING PROCESS TECHNICIAN Ot Z12.31 ENCNTR SCREEN MAMMOGRAM FOR MALIGNANT NE 10/22/2017 VICKY, TAMMY R MANUFACTURING PROCESS TECHNICIAN Ot M25.511 PAIN IN RIGHT SHOULDER 10/29/2017 VICKY, TAMMY R MANUFACTURING PROCESS TECHNICIAN Ot Z12.31 ENCNTR SCREEN MAMMOGRAM FOR MALIGNANT NE 11/13/2017 VICKY, TAMMY R MANUFACTURING PROCESS TECHNICIAN Ot M25.511 PAIN IN RIGHT SHOULDER 03/09/2018 [facility], KRISTINE S Ot 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, UNSPECIFIED 03/09/2018 [facility] DO, KRISTINE S Ot M54.2 CERVICALGIA 03/09/2018 [facility] DO, KRISTINE S Ot R59.0 LOCALIZED ENLARGED LYMPH NODES 03/09/2018 [facility] DO, KRISTINE S Ot G93.2 BENIGN INTRACRANIAL HYPERTENSION 03/09/2018 YAHIRNDER DO, KRISTINE S Ot R10.31 RIGHT LOWER QUADRANT PAIN 03/09/2018 [facility], KRISTINE S Ot R05 COUGH 03/09/2018 ORENDER DO, KRISTINE S Ot R59.0 LOCALIZED ENLARGED LYMPH NODES 03/09/2018 VICKY, TAMMY R MANUFACTURING PROCESS TECHNICIAN Ot M25.511 PAIN IN RIGHT SHOULDER 03/09/2018 SEBAS PERRYOSMIN Devlin APRN Ot Z12.31 ENCNTR SCREEN MAMMOGRAM FOR MALIGNANT NE 03/09/2018 SEBAS PERRYOSMIN Devlin APRN Ot M25.511 PAIN IN RIGHT SHOULDER 04/10/2018 JAG MUKHERJEE MD Ot I26.99 OTHER PULMONARY EMBOLISM WITHOUT ACUTE C 04/10/2018 JAG MUKHERJEE MD Ot I34.0 NONRHEUMATIC MITRAL (VALVE) INSUFFICIENC 04/10/2018 JAG MUKHERJEE MD Ot R00.2 PALPITATIONS 04/10/2018 JAG MUKHERJEE MD Ot R06.02 SHORTNESS OF BREATH 04/10/2018 JAG MUKHERJEE MD Ot R42 DIZZINESS AND GIDDINESS 04/14/2018 KRISTINE BRAMBILA DO S Ot R05 COUGH 04/14/2018 KRISTINE BRAMBILA DO S Ot R59.0 LOCALIZED ENLARGED LYMPH NODES Procedures Code Description [place] [id number] STREP A (IN-HOUSE) 05/20/2012 80333 URINE TEST (IN- HOUSE) 06/05/2012 36684 XRAY CERVICAL SPINE MIN 4 VIEWS 06/05/2012 02868 XRAY THORACIC SPINE 3 VIEWS 06/05/2012 Obstetric Ryan Tran 06/05/2012 80277 INR (IN HOUSE) 08/03/2012 46296 INR (IN HOUSE) 08/10/2012 41444 VENOUS DOPPLER UNILATERAL/ LIMITED 08/11/2012 56608 UA LONG DIP 08/18/2012 54884 INR (IN HOUSE) 08/31/2012 87155 CULTURE URINE 09/06/2012 27865 UA W/ CULTURE IF INDICATED 09/08/2012 78933 INR (IN HOUSE) 09/14/2012 64054 INR (IN HOUSE) 09/21/2012 70241 INR (IN HOUSE) 09/28/2012 Urology [facility] 09/29/2012 35260 INR (IN HOUSE) 10/06/2012 47788 THERAPUTIC INJ SQ/IM 10/17/2012 [id number] DEPO MEDROL 80 MG INJ 10/17/2012 42038 INR (IN HOUSE) 10/19/2012 64957 INR (IN HOUSE) 10/26/2012 61987 INR (IN HOUSE) 11/02/2012 60906 INR (IN HOUSE) 11/17/2012 32559 INR (IN HOUSE) 12/22/2012 87908 ROUTINE VENIPUNCTURE 01/26/2013 47441 PT/INR 01/26/2013 02629 INR (IN HOUSE) 02/08/2013 80380 INR (IN HOUSE) 02/19/2013 88510 INR (IN HOUSE) 05/21/2013 26613 INR (IN HOUSE) 06/24/2013 02761 INR (IN HOUSE) 07/13/2013 03698 INR (IN HOUSE) 07/22/2013 12176 INR (IN HOUSE) 08/05/2013 Medical O Felix Collier 09/16/2013 35469 INR (IN HOUSE) 10/13/2013 66552 INR (IN HOUSE) 11/03/2013 13281 UA W/ CULTURE IF INDICATED 11/25/2013 74178 INR (IN HOUSE) 12/09/2013 42067 INR (IN HOUSE) 12/23/2013 80758 INR (IN HOUSE) 12/30/2013 SARAN LOVE MICHAEL 01/03/2014 21390 INR (IN HOUSE) 01/12/2014 72853 ROUTINE VENIPUNCTURE 02/08/2014 47999 FSH 02/08/2014 24470 LH 02/08/2014 42350 INR (IN HOUSE) 02/08/2014 42501 INR (IN HOUSE) 02/22/2014 88164 UA W/ CULTURE IF INDICATED 02/22/2014 15866 CULTURE URINE 02/22/2014 01289 INR (IN HOUSE) 02/25/2014 31269 INR (IN HOUSE) 03/28/2014 Obstetric Junito Cortez 04/08/2014 59509 INR (IN HOUSE) 04/08/2014 55258 INR (IN HOUSE) 04/22/2014 24584 INR (IN HOUSE) 05/10/2014 72733 INR (IN HOUSE) 05/20/2014 60944 INR (IN HOUSE) 05/27/2014 39564 ROUTINE VENIPUNCTURE 06/03/2014 OTOLARYNG LEWIS CUEVA 06/03/2014 02740 INR (IN HOUSE) 06/03/2014 42846 MONO TEST (IN-HOUSE) 06/03/2014 20694 STREP A (IN-HOUSE) 06/03/[address] ANGIO, CHEST 06/03/2014 75419 OXIMETRY 06/03/2014 [id number] GFR CALC (RESULT ONLY) 06/03/2014 08550 CMP 06/03/2014 68652 VIT B 12 06/03/2014 21703 INR (IN HOUSE) 06/17/2014 16529 INR (IN HOUSE) 06/22/2014 44338 INR (IN HOUSE) 06/30/2014 2000F BLOOD PRESSURE CHECK 06/30/2014 89630 INR (IN HOUSE) 07/07/2014 22503 INR (IN HOUSE) 07/11/2014 93642 XRAY ABDOMEN 2 VIEWS 07/11/2014 38350 INR (IN HOUSE) 07/22/2014 38281 ROUTINE VENIPUNCTURE 08/04/2014 14467 PT/INR 08/04/2014 07086 INR (IN HOUSE) 08/08/2014 84837 INR (IN HOUSE) 09/14/2014 99867 UA W/ CULTURE IF INDICATED 10/07/2014 Results Test Result Range Complete blood count (CBC) with automated white blood cell (WBC) differential - 05/12/16 20:19 Blood leukocytes automated count (number/volume) 7.7 10*3/uL 4.3-11.0 Blood erythrocytes automated count (number/volume) 4.75 10*6/uL 4.35-5.85 Venous blood hemoglobin measurement (mass/volume) 15.7 g/dL 11.5-16.0 Blood hematocrit (volume fraction) 44 % 35-52 Automated erythrocyte mean corpuscular volume 92 [foz_us] 80-99 Automated erythrocyte mean corpuscular hemoglobin (mass per erythrocyte) 33 pg 25-34 Automated erythrocyte mean corpuscular hemoglobin concentration measurement ( mass/volume) 36 g/dL 32-36 Automated erythrocyte distribution width ratio 12.7 % 10.0-14.5 Automated blood platelet count (count/volume) 222 10*3/uL 130-400 Automated blood platelet mean volume measurement 9.6 [foz_us] 7.4-10.4 Automated blood neutrophils/100 leukocytes 63 % 42-75 Automated blood lymphocytes/100 leukocytes 28 % 12-44 Blood monocytes/100 leukocytes 8 % 0-12 Automated blood eosinophils/100 leukocytes 1 % 0-10 Automated blood basophils/100 leukocytes 0 % 0-10 Blood neutrophils automated count (number/volume) 4.9 10*3 1.8-7.8 Blood lymphocytes automated count (number/volume) 2.1 10*3 1.0-4.0 Blood monocytes automated count (number/volume) 0.6 10*3 0.0-1.0 Automated eosinophil count 0.1 10*3/uL 0.0-0.3 Automated blood basophil count (count/volume) 0.0 10*3/uL 0.0-0.1 Comprehensive metabolic panel - 05/12/16 20:19 Serum or plasma sodium measurement (moles/volume) 137 mmol/L 135-145 Serum or plasma potassium measurement (moles/volume) 4.6 mmol/L 3.6-5.0 Serum or plasma chloride measurement (moles/volume) 106 mmol/L 98-107 Carbon dioxide 19 mmol/L 21-32 Serum or plasma anion gap determination (moles/volume) 12 mmol/L 5-14 Serum or plasma urea nitrogen measurement (mass/volume) 8 mg/dL 7-18 Serum or plasma creatinine measurement (mass/volume) 0.72 mg/dL 0.60-1.30 Serum or plasma urea nitrogen/creatinine mass ratio 11 NRG Serum or plasma creatinine measurement with calculation of estimated glomerular filtration rate > NRG Serum or plasma glucose measurement (mass/volume) 81 mg/dL 70-105 Serum or plasma calcium measurement (mass/volume) 9.1 mg/dL 8.5-10.1 Serum or plasma total bilirubin measurement (mass/volume) 0.4 mg/dL 0.1-1.0 Serum or plasma alkaline phosphatase measurement (enzymatic activity/volume) 77 U/L 40-136 Serum or plasma aspartate aminotransferase measurement (enzymatic activity/ volume) 40 U/L 5-34 Serum or plasma alanine aminotransferase measurement (enzymatic activity/volume ) 61 U/L 0-55 Serum or plasma protein measurement (mass/volume) 7.0 g/dL 6.4-8.2 Serum or plasma albumin measurement (mass/volume) 4.2 g/dL 3.2-4.5 Lipase - 05/12/16 20:19 Lipase < U/L 8-78 Complete urinalysis with reflex to culture - 05/12/16 20:40 Urine color determination YELLOW NRG Urine clarity determination SLIGHTLY CLOUDY NRG Urine pH measurement by test strip 6.5 5-9 Specific gravity of urine by test strip 1.005 1.016- 1.022 Urine protein assay by test strip, semi-quantitative NEGATIVE NEGATIVE Urine glucose detection by automated test strip NEGATIVE NEGATIVE Erythrocytes detection in urine sediment by light microscopy NEGATIVE NEGATIVE Urine ketones detection by automated test strip NEGATIVE NEGATIVE Urine nitrite detection by test strip NEGATIVE NEGATIVE Urine total bilirubin detection by test strip NEGATIVE NEGATIVE Urine urobilinogen measurement by automated test strip (mass/volume) NORMAL NORMAL Urine leukocyte esterase detection by dipstick NEGATIVE NEGATIVE Automated urine sediment erythrocyte count by microscopy (number/high power field) RARE NRG Automated urine sediment leukocyte count by microscopy (number/high power field ) [HPF] NRG Bacteria detection in urine sediment by light microscopy NEGATIVE NRG Squamous epithelial cells detection in urine sediment by light microscopy >50 NRG Crystals detection in urine sediment by light microscopy NONE NRG Casts detection in urine sediment by light microscopy NONE NRG Mucus detection in urine sediment by light microscopy NEGATIVE NRG Complete urinalysis with reflex to culture NO NRG Renal epithelial cells detection in urine sediment by light microscopy NONE NRG Complete blood count (CBC) with automated white blood cell (WBC) differential - 07/07/16 20:22 Blood leukocytes automated count (number/volume) 8.4 10*3/uL 4.3-11.0 Blood erythrocytes automated count (number/volume) 4.56 10*6/uL 4.35-5.85 Venous blood hemoglobin measurement (mass/volume) 14.9 g/dL 11.5-16.0 Blood hematocrit (volume fraction) 43 % 35-52 Automated erythrocyte mean corpuscular volume 93 [foz_us] 80-99 Automated erythrocyte mean corpuscular hemoglobin (mass per erythrocyte) 33 pg 25-34 Automated erythrocyte mean corpuscular hemoglobin concentration measurement ( mass/volume) 35 g/dL 32-36 Automated erythrocyte distribution width ratio 12.4 % 10.0-14.5 Automated blood platelet count (count/volume) 292 10*3/uL 130-400 Automated blood platelet mean volume measurement 9.0 [foz_us] 7.4-10.4 Automated blood neutrophils/100 leukocytes 41 % 42-75 Automated blood lymphocytes/100 leukocytes 50 % 12-44 Blood monocytes/100 leukocytes 6 % 0-12 Automated blood eosinophils/100 leukocytes 2 % 0-10 Automated blood basophils/100 leukocytes 0 % 0-10 Blood neutrophils automated count (number/volume) 3.5 10*3 1.8-7.8 Blood lymphocytes automated count (number/volume) 4.2 10*3 1.0-4.0 Blood monocytes automated count (number/volume) 0.5 10*3 0.0-1.0 Automated eosinophil count 0.2 10*3/uL 0.0-0.3 Automated blood basophil count (count/volume) 0.0 10*3/uL 0.0-0.1 PT panel in platelet poor plasma by coagulation assay - 07/07/16 20:22 Prothrombin time (PT) in platelet poor plasma by coagulation assay 18.3 s 12.2-14.7 INR in platelet poor plasma or blood by coagulation assay 1.6 0.8-1.4 Activated partial thromboplastin time (aPTT) in platelet poor plasma bycoagulation assay - 07/07/16 20:22 Activated partial thromboplastin time (aPTT) in platelet poor plasma bycoagulation assay 32 s 24-35 Fibrin D-dimer FEU measurement in platelet poor plasma (mass/volume) - 20:22 Fibrin D-dimer FEU measurement in platelet poor plasma (mass/volume) < ug/mL 0.00-0.49 Complete urinalysis with reflex to culture - 02/10/17 14:05 Urine color determination YELLOW NRG Urine clarity determination CLEAR NRG Urine pH measurement by test strip 7 5-9 Specific gravity of urine by test strip 1.010 1.016- 1.022 Urine protein assay by test strip, semi-quantitative NEGATIVE NEGATIVE Urine glucose detection by automated test strip NEGATIVE NEGATIVE Erythrocytes detection in urine sediment by light microscopy NEGATIVE NEGATIVE Urine ketones detection by automated test strip NEGATIVE NEGATIVE Urine nitrite detection by test strip NEGATIVE NEGATIVE Urine total bilirubin detection by test strip NEGATIVE NEGATIVE Urine urobilinogen measurement by automated test strip (mass/volume) NORMAL NORMAL Urine leukocyte esterase detection by dipstick NEGATIVE NEGATIVE Automated urine sediment erythrocyte count by microscopy (number/high power field) NONE NRG Automated urine sediment leukocyte count by microscopy (number/high power field ) NONE NRG Bacteria detection in urine sediment by light microscopy NEGATIVE NRG Squamous epithelial cells detection in urine sediment by light microscopy 2-5 NRG Crystals detection in urine sediment by light microscopy NONE NRG Casts detection in urine sediment by light microscopy NONE NRG Mucus detection in urine sediment by light microscopy NEGATIVE NRG Complete urinalysis with reflex to culture NO NRG Complete blood count (CBC) with automated white blood cell (WBC) differential - 02/10/17 14:16 Blood leukocytes automated count (number/volume) 9.3 10*3/uL 4.3-11.0 Blood erythrocytes automated count (number/volume) 4.28 10*6/uL 4.35-5.85 Venous blood hemoglobin measurement (mass/volume) 14.1 g/dL 11.5-16.0 Blood hematocrit (volume fraction) 41 % 35-52 Automated erythrocyte mean corpuscular volume 95 [foz_us] 80-99 Automated erythrocyte mean corpuscular hemoglobin (mass per erythrocyte) 33 pg 25-34 Automated erythrocyte mean corpuscular hemoglobin concentration measurement ( mass/volume) 35 g/dL 32-36 Automated erythrocyte distribution width ratio 12.2 % 10.0-14.5 Automated blood platelet count (count/volume) 292 10*3/uL 130-400 Automated blood platelet mean volume measurement 9.0 [foz_us] 7.4-10.4 Automated blood neutrophils/100 leukocytes 49 % 42-75 Automated blood lymphocytes/100 leukocytes 43 % 12-44 Blood monocytes/100 leukocytes 6 % 0-12 Automated blood eosinophils/100 leukocytes 2 % 0-10 Automated blood basophils/100 leukocytes 0 % 0-10 Blood neutrophils automated count (number/volume) 4.5 10*3 1.8-7.8 Blood lymphocytes automated count (number/volume) 4.0 10*3 1.0-4.0 Blood monocytes automated count (number/volume) 0.5 10*3 0.0-1.0 Automated eosinophil count 0.2 10*3/uL 0.0-0.3 Automated blood basophil count (count/volume) 0.0 10*3/uL 0.0-0.1 Comprehensive metabolic panel - 02/10/17 14:16 Serum or plasma sodium measurement (moles/volume) 139 mmol/L 135-145 Serum or plasma potassium measurement (moles/volume) 3.9 mmol/L 3.6-5.0 Serum or plasma chloride measurement (moles/volume) 106 mmol/L 98-107 Carbon dioxide 25 mmol/L 21-32 Serum or plasma anion gap determination (moles/volume) 8 mmol/L 5-14 Serum or plasma urea nitrogen measurement (mass/volume) 11 mg/dL 7-18 Serum or plasma creatinine measurement (mass/volume) 0.71 mg/dL 0.60-1.30 Serum or plasma urea nitrogen/creatinine mass ratio 15 NRG Serum or plasma creatinine measurement with calculation of estimated glomerular filtration rate > NRG Serum or plasma glucose measurement (mass/volume) 91 mg/dL 70-105 Serum or plasma calcium measurement (mass/volume) 8.6 mg/dL 8.5-10.1 Serum or plasma total bilirubin measurement (mass/volume) 0.2 mg/dL 0.1-1.0 Serum or plasma alkaline phosphatase measurement (enzymatic activity/volume) 47 U/L 40-136 Serum or plasma aspartate aminotransferase measurement (enzymatic activity/ volume) 25 U/L 5-34 Serum or plasma alanine aminotransferase measurement (enzymatic activity/volume ) 23 U/L 0-55 Serum or plasma protein measurement (mass/volume) 6.4 g/dL 6.4-8.2 Serum or plasma albumin measurement (mass/volume) 4.0 g/dL 3.2-4.5 PT panel in platelet poor plasma by coagulation assay - 02/10/17 15:00 Prothrombin time (PT) in platelet poor plasma by coagulation assay 18.3 s 12.2-14.7 INR in platelet poor plasma or blood by coagulation assay 1.5 0.8-1.4 Fibrin D-dimer FEU measurement in platelet poor plasma (mass/volume) - 15:00 Fibrin D-dimer FEU measurement in platelet poor plasma (mass/volume) < ug/mL 0.00-0.49 Encounters ACCT No. Visit Date/Time Discharge Status Pt. Type Provider Facility Loc./Unit Complaint [id number] 10/07/2014 09:58:00 10/07/2014 23:59:59 CLS Outpatient MADL MANUFACTURING PROCESS TECHNICIANLENA L [id number] 09/14/2014 13:21:00 09/14/2014 23:59:59 CLS Outpatient MADL MANUFACTURING PROCESS TECHNICIANLENA L [id number] 08/08/2014 12:10:00 08/08/2014 23:59:59 CLS Outpatient MADL MANUFACTURING PROCESS TECHNICIAN JIMI L [id number] 08/04/2014 12:55:00 08/04/2014 23:59:59 CLS Outpatient MADL MANUFACTURING PROCESS TECHNICIAN JIMI L [id number] 07/22/2014 13:26:00 07/22/2014 23:59:59 CLS Outpatient MADL MANUFACTURING PROCESS TECHNICIAN, JIMI L [id number] 07/11/2014 10:58:00 07/11/2014 23:59:59 CLS Outpatient MADL MANUFACTURING PROCESS TECHNICIAN, JIMI L [id number] 07/07/2014 12:01:00 07/07/2014 23:59:59 CLS Outpatient MADL MANUFACTURING PROCESS TECHNICIAN, JIMI L [id number] 06/30/2014 10:23:00 06/30/2014 23:59:59 CLS Outpatient MADL MANUFACTURING PROCESS TECHNICIAN, JIMI L [id number] 06/22/2014 12:27:00 06/22/2014 23:59:59 CLS Outpatient MADL MANUFACTURING PROCESS TECHNICIAN, JIMI L [id number] 06/17/2014 12:28:00 06/17/2014 23:59:59 CLS Outpatient MADL MANUFACTURING PROCESS TECHNICIAN, JIMI L [id number] 06/09/2014 09:59:00 06/09/2014 23:59:59 CLS Outpatient MADL MANUFACTURING PROCESS TECHNICIAN, JIMI L [id number] 06/03/2014 13:50:00 06/03/2014 23:59:59 CLS Outpatient MADL MANUFACTURING PROCESS TECHNICIAN, JIMI L [id number] 05/27/2014 14:50:00 05/27/2014 23:59:59 CLS Outpatient MADL MANUFACTURING PROCESS TECHNICIAN, JIMI L [id number] 05/20/2014 10:54:00 05/20/2014 23:59:59 CLS Outpatient MADL MANUFACTURING PROCESS TECHNICIAN, JIMI L [id number] 05/10/2014 10:59:00 05/10/2014 23:59:59 CLS Outpatient MADL MANUFACTURING PROCESS TECHNICIAN, JIMI L [id number] 04/22/2014 08:55:00 04/22/2014 23:59:59 CLS Outpatient MADL MANUFACTURING PROCESS TECHNICIAN, JIMI L [id number] 04/08/2014 08:43:00 04/08/2014 23:59:59 CLS Outpatient DAYANA CHAPMAN DO [id number] 03/28/2014 09:28:00 03/28/2014 23:59:59 CLS Outpatient DAYANA CHAPMAN DO [id number] 02/25/2014 13:47:00 02/25/2014 23:59:59 CLS Outpatient MADL MANUFACTURING PROCESS TECHNICIAN, JIMI L [id number] 02/22/2014 15:07:00 02/22/2014 23:59:59 CLS Outpatient CHAPMAN DODAYANA Derrell [id number] 02/08/2014 13:26:00 02/08/2014 23:59:59 CLS Outpatient CHAPMAN DODAYANA Derrell [id number] 01/12/2014 09:59:00 01/12/2014 23:59:59 CLS Outpatient CHAPMAN DODAYANA Derrell [id number] 01/03/2014 15:51:00 01/03/2014 23:59:59 CLS Outpatient MADL MANUFACTURING PROCESS TECHNICIAN, JIMI L [id number] 12/30/2013 11:53:00 12/30/2013 23:59:59 CLS Outpatient MADL MANUFACTURING PROCESS TECHNICIAN, JIMI L [id number] 12/23/2013 11:42:00 12/23/2013 23:59:59 CLS Outpatient MADL MANUFACTURING PROCESS TECHNICIAN, JIMI L [id number] 12/09/2013 08:59:00 12/09/2013 23:59:59 CLS Outpatient MADL MANUFACTURING PROCESS TECHNICIAN, JIMI L [id number] 11/25/2013 12:26:00 11/25/2013 23:59:59 CLS Outpatient MADL MANUFACTURING PROCESS TECHNICIAN, JIMI L [id number] 11/08/2013 08:17:00 11/08/2013 23:59:59 CLS Outpatient MADL MANUFACTURING PROCESS TECHNICIAN, JIMI L [id number] 11/03/2013 14:19:00 11/03/2013 23:59:59 CLS Outpatient MADL MANUFACTURING PROCESS TECHNICIAN, JIMI L [id number] 10/13/2013 08:49:00 10/13/2013 23:59:59 CLS Outpatient CHAPMAN DODAYANA Derrell [id number] 08/05/2013 09:00:00 08/05/2013 23:59:59 CLS Outpatient JAMIE DERAS MD [id number] 07/22/2013 09:23:00 07/22/2013 23:59:59 CLS Outpatient JAMIE DERAS MD [id number] 07/13/2013 11:15:00 07/13/2013 23:59:59 CLS Outpatient JUNIE MANUFACTURING PROCESS TECHNICIANPAT Mendoza [id number] 06/24/2013 09:40:00 06/24/2013 23:59:59 CLS Outpatient JAMIE DERAS MD [id number] 05/21/2013 08:55:00 05/21/2013 23:59:59 CLS Outpatient JAMIE DERAS MD [id number] 02/19/2013 09:00:00 02/19/2013 23:59:59 CLS Outpatient JAMIE DERAS MD [id number] 09/28/2012 09:05:00 09/28/2012 23:59:59 CLS Outpatient [id number] 09/14/2012 09:00:00 09/14/2012 23:59:59 CLS Outpatient JAMIE DERAS MD [id number] 09/08/2012 09:06:00 09/08/2012 23:59:59 CLS Outpatient JAMIE DERAS MD [id number] 08/31/2012 08:57:00 08/31/2012 23:59:59 CLS Outpatient JAMIE DERAS MD [id number] 08/25/2012 18:53:00 08/25/2012 23:59:59 CLS Outpatient [id number] 08/18/2012 10:22:00 08/18/2012 23:59:59 CLS Outpatient JAMIE DERAS MD [id number] 08/18/2012 10:22:00 08/18/2012 23:59:59 CLS Outpatient CELESTE MARINO MD [id number] 08/10/2012 10:57:00 08/10/2012 23:59:59 CLS Outpatient JAMIE DERAS MD [id number] 06/05/2012 15:50:00 06/05/2012 23:59:59 [place] [id number] 05/20/2012 15:08:00 05/20/2012 23:59:59 CLS Outpatient [id number] 02/08/2013 09:05:00 Document Registration [id number] 01/26/2013 10:18:00 Document Registration [id number] 01/06/2013 09:14:00 Document Registration [id number] 12/22/2012 08:50:00 Document Registration [id number] 11/27/2012 09:50:00 Document Registration [id number] 11/17/2012 08:58:00 Document Registration [id number] 10/26/2012 09:23:00 Document Registration [id number] 10/19/2012 09:04:00 Document Registration [id number] 10/17/2012 13:36:00 Document Registration [id number] 10/17/2012 13:36:00 Document Registration [id number] 10/06/2012 08:50:00 Document Registration [id number] 04/07/2018 14:03:00 04/07/2018 23:59:59 CLS Outpatient JAG MUKHERJEE MD [facility] CARD PALPITATION,SOB, DIZZINESS [id number] 10/14/2017 13:43:00 10/14/2017 23:59:59 CLS Outpatient TAMMY PERRY MANUFACTURING PROCESS TECHNICIAN [facility] RAD SCREENING [id number] 10/06/2017 17:02:00 10/06/2017 23:59:59 CLS Outpatient TAMMY PERRY R MANUFACTURING PROCESS TECHNICIAN [facility] RAD RIGHT SHOULDER PAIN [id number] 07/22/2017 13:48:00 07/22/2017 23:59:59 CLS Outpatient LIZZYER DO KRISTINE S [facility] RAD R22.1, R05 [id number] 06/06/2017 09:37:00 06/06/2017 23:59:59 CLS Preadmit LIZZYER DO KRISTINE S [facility] RAD SCREENING [id number] 05/01/2017 15:45:00 05/01/2017 23:59:59 CLS Preadmit LEWIS CUEVA MD [facility] RAD CHRONIC PASINUSITIS [id number] 03/11/2017 17:40:00 03/11/2017 23:59:59 CLS Outpatient YAHIRNDER DO, KRISTINE S [facility] RAD R59.0,M54.2 [id number] 03/03/2017 12:52:00 03/03/2017 23:59:59 CLS Outpatient LIZZYER DO KRISTINE S [facility] RAD RT FLANK PAIN [id number] 02/10/2017 13:57:00 02/10/2017 16:34:00 DIS Emergency AMPARO WHITE MANUFACTURING PROCESS TECHNICIAN [facility] ER ABD PAIN [id number] 02/05/2017 13:16:00 02/05/2017 23:59:59 CLS Preadmit BRENNAN CLARK KRISTINE S [facility] RAD PITUITARY MASS [id number] 07/07/2016 20:07:00 07/07/2016 22:04:00 DIS Emergency RICK PEREA MD [facility] ER SOA [id number] 05/12/2016 19:49:00 05/12/2016 22:17:00 DIS Emergency AMPARO WHITE MANUFACTURING PROCESS TECHNICIAN [facility] ER HEART RATE DEHYDRATION VOMITING [id number] 10/19/2015 11:17:00 10/19/2015 23:59:59 CLS Outpatient SHAUNNA LOCKHART MD [facility] RAD RT SIDED NECK MASS [id number] 10/16/2015 17:46:00 10/16/2015 23:59:59 CLS Outpatient SHAUNNA LOCKHART MD [facility] LAB PULMONARY EMBOLISM [id number] 10/13/2015 14:00:00 10/13/2015 23:59:59 CLS Outpatient KRISTINE BRAMBILA DO S [facility] RAD SCREENING [id number] 10/05/2015 13:59:00 10/05/2015 23:59:59 CLS Outpatient LARRY MCKEON MANUFACTURING PROCESS TECHNICIAN [facility] RAD RIGHT NECK MASS [id number] 08/04/2015 00:07:00 08/04/2015 23:59:59 CLS Preadmit LAURA ANGELES ANP [facility] LAB FEVER UNSPCIFIED CAUSE, MYGALIA,DVT, [id number] 05/05/2015 11:21:00 08/03/2015 00:01:00 DIS Outpatient LAURA ANGELES ANP [facility] LAB FEVER UNSPCIFIED CAUSE,MYGALIA,DVT, [id number] 06/23/2015 00:12:00 06/23/2015 23:59:59 CLS Preadmit ARTIE RENE TEACHER EDUCATION INSTRUCTOR [facility] SDC DEHYDRATION, LYMPHADENOPATHY,FEVER [id number] 05/08/2015 16:26:00 06/22/2015 00:01:00 DIS Outpatient RENEARTIE WHITAKER Deloris TEACHER EDUCATION INSTRUCTOR [facility] SDC DEHYDRATION, LYMPHADENOPATHY,FEVER [id number] 04/17/2015 12:57:00 04/17/2015 23:59:59 CLS Outpatient RENEARTIE WHITAKER Deloris TEACHER EDUCATION INSTRUCTOR [facility] RAD PELVIC PAIN, NECK NODULE [id number] 03/23/2015 01:24:00 03/23/2015 23:59:59 CLS Preadmit RENE, ARTIE Deloris TEACHER EDUCATION INSTRUCTOR [facility] SURG RCR DISEMINSTED STREP [id number] 03/21/2015 10:55:00 03/22/2015 00:01:00 DIS Outpatient RENE, ARTIE Deloris TEACHER EDUCATION INSTRUCTOR [facility] SURG RCR DISEMINSTED STREP [id number] 03/12/2015 10:20:00 03/22/2015 00:01:00 DIS Outpatient EDGARD ARTIE Deloris TEACHER EDUCATION INSTRUCTOR [facility] SDC DEHYDRATION [id number] 03/20/2015 16:50:00 03/20/2015 23:59:59 CLS Outpatient RENE, ARTIE L TEACHER EDUCATION INSTRUCTOR [facility] RAD VISUAL FIELD LOSS , MIGRANES [id number] 03/16/2015 21:11:00 03/17/2015 00:53:00 DIS Emergency LETICIA BOCANEGRA DO [facility] ER L EYE BLINDNESS [id number] 03/07/2015 17:51:00 03/07/2015 20:20:00 DIS Emergency DEWAYNE SEO MD [facility] ER CP [id number] 02/21/2015 14:51:00 02/21/2015 23:59:59 CLS Outpatient TROY MULLEN S TEACHER EDUCATION INSTRUCTOR [facility] ONC [id number] 02/21/2015 13:00:00 02/21/2015 23:59:59 CLS Preadmit JAG MUKHERJEE MD [facility] CARD PALPITATIONS,EMBOLI,SOB [id number] 11/22/2014 12:47:00 02/20/2015 00:01:00 DIS Outpatient JAG MUKHERJEE MD [facility] CARD [id number] 01/30/2015 03:15:00 01/30/2015 23:59:59 CLS Outpatient RENEMARILUZARTIE L TEACHER EDUCATION INSTRUCTOR [facility] RAD PE TUMOR TIA [id number] 01/26/2015 13:19:00 01/26/2015 23:59:59 CLS Outpatient AMINAH RENE DO [facility] SDC DEHYDRATION [id number] 01/05/2015 13:50:00 01/05/2015 16:26:00 DIS Emergency GÓMEZ MCMANUS [facility] ER SOA/RAPID HEART RATE [id number] 01/03/2015 13:15:00 01/03/2015 23:59:59 CLS Outpatient ARTIE RENE TEACHER EDUCATION INSTRUCTOR [facility] RAD PELVIC PAIN [id number] 12/27/2014 11:36:00 12/27/2014 23:59:59 CLS Outpatient RENE, ARTIE Deloris TEACHER EDUCATION INSTRUCTOR [facility] RAD PELVIC PAIN, ENLARGED THYROID [id number] 12/21/2014 00:10:00 12/21/2014 23:59:59 CLS Preadmit FELIX COLLIER Kelly [facility] ONC [id number] 11/17/2014 13:21:00 12/20/2014 00:01:00 DIS Outpatient ELISABET FELIX N [facility] ONC [id number] 12/16/2014 10:50:00 12/16/2014 12:40:00 DIS Emergency RICK PEREA MD [facility] ER POSS MED REACTION [id number] 12/07/2014 10:39:00 12/07/2014 23:59:59 CLS Outpatient JAG MUKHERJEE MD [facility] CARD PALPITATIONS,PE,SOB [id number] 11/29/2014 10:44:00 11/29/2014 13:20:00 DIS Emergency LETICIA BOCANEGRA DO [facility] ER RAPID HEART/SOA IRR BP [id number] 11/08/2014 12:15:00 11/08/2014 13:56:00 DIS Emergency BRIT PAYNE, RICK Singleton [facility] ER SOA- IRR HEART RATE [id number] 10/21/2014 16:30:00 10/21/2014 18:18:00 DIS Emergency WHITEAMPARO APRN [facility] ER [id number] 09/24/2014 20:18:00 09/24/2014 23:43:00 DIS Emergency GÓMEZ MCMANUS [facility] ER [id number] 09/22/2014 18:36:00 09/22/2014 21:35:00 DIS Emergency AMINAH ÁLVAREZ DO [facility] ER [id number] 09/14/2014 14:08:00 09/14/2014 23:59:59 CLS Outpatient KITA PAYNE, SALIMA Keys [facility] LAB [id number] 09/13/2014 19:58:00 09/14/2014 06:20:00 DIS Outpatient ASYA RODRIGUEZ DO [facility] 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 [id number] 08/02/2014 08:54:00 08/02/2014 23:59:59 CLS Outpatient ASYA RODRIGUEZ DO [facility] CARD [id number] 07/30/2014 12:04:00 07/30/2014 15:00:00 DIS Emergency JENNY CONTRERAS MD [facility] ER [id number] 07/27/2014 12:33:00 07/27/2014 23:59:59 CLS Outpatient ASYA RODRIGUEZ DO [facility] LAB [id number] 07/25/2014 15:25:00 07/25/2014 23:59:59 CLS Outpatient ASYA RODRIGUEZ DO [facility] RAD [id number] 06/03/2014 16:17:00 06/03/2014 23:59:59 CLS Outpatient ARTIE HARRIS [facility] RAD [id number] 09/16/2013 09:19:00 09/16/2013 23:59:59 CLS Outpatient [id number] 06/03/2014 14:55:00 Document Registration [id number] 06/03/2014 14:55:00 Document Registration [id number] 09/17/2012 09:01:00 Document Registration [id number] 08/14/2012 11:36:00 Document Registration [id number] 07/30/2012 11:41:00 Document Registration [id number] 07/30/2012 09:12:00 Document Registration [id number] 07/20/2012 06:00:00 Document Registration [id number] 07/14/2012 08:06:00 Document Registration [id number] 06/08/2012 09:15:00 Document Registration [id number] 03/27/2012 08:44:00 Document Registration [id number] 03/19/2012 09:02:00 Document Registration [id number] 01/13/2012 09:01:00 Document Registration [id number] 10/14/2011 09:58:00 Document Registration [id number] 09/19/2011 09:02:00 Document Registration [id number] 09/11/2011 09:59:00 Document Registration [id number] 08/15/2011 14:20:00 Document Registration [id number] 08/08/2011 12:47:00 Document Registration [id number] 03/21/2011 09:35:00 Document Registration [id number] 12/20/2010 09:05:00 Document Registration [id number] 09/17/2010 08:54:00 Document Registration [id number] 05/28/2010 11:28:00 Document Registration [id number] 05/22/2010 08:31:00 Document Registration [id number] 04/15/2010 10:50:00 Document Registration [id number] 03/08/2010 18:54:00 Document Registration [id number] 02/07/2010 08:40:00 Document Registration [id number] 01/13/2010 23:02:00 Document Registration [id number] 01/06/2010 07:42:00 Document Registration [id number] 11/09/2009 11:04:00 Document Registration [id number] 07/28/2009 12:40:00 Document Registration 02/201705/01/2018 00:00:14 05/01/2018 23:59:59 CLS Outpatient Kristine Brambila [facility] 04/04/2015 10:30:00 ACT Document Registration
[2018-05-10] MEDS ORDERED: KETOROLAC 60 MG/2 ML VIAL IM STA (12:56)
[2018-05-10] MEDS ORDERED: LIDOCAINE 1% INJ 20 ML 20 ML VIAL INJ ONE (13:00)
[2018-05-10] MEDS ORDERED: cefTRIAXone 1 GM/10 ML for IV (ROCEPHIN) IM ONE (13:00)
--- NOTE | 2018-05-10 13:01 | ED EENT ---
History of Present Illness General Chief Complaint: Ear Problems Stated Complaint: L EAR AND JAW PAIN Nursing Triage Note: States that she has been left ear pain times 1 week. Pain radiates into the jaw. Last ibuprohen was 0130. No fever/n/v History of Present Illness Date Seen by Provider: May 10, 2018 Time Seen by Provider: 12:50 Initial Comments 42-year-old female presents for left ear and jaw pain. 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 The pain radiates from her left ear into her left chin. She has multiple medical problems including clotting disorder and drug allergies. She has been treated for arthritis and fibromyalgia. 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 She reports immune system problems in the past and is usually needed Rocephin to cover infections. She also has a lesion in her mouth that she was referred to Dr. Lugo and is now being referred to Dr. Person, on the left lower side In addition she is tearful, her grandfather yesterday. Timing/Duration: gradual Prearrival Treatment: over the counter meds Associated Symptoms: facial pain/swelling, fever, malaise; No nasal congestion/ drainage, No sinus infection, No sore throat, No tooth pain Allergies and Home Medications Allergies Coded Allergies: Sulfa (Sulfonamide Antibiotics) (Unverified Allergy, Severe, PER PT "THROAT SWELLS", 09/11/11) bupropion (Unverified Allergy, Severe, IRREG HEART RATE, 10/21/14) amoxicillin (Unverified Allergy, Mild, RASH AND VISUAL DISTURBANCES/ VISUAL LOSS, 03/21/15) PER PT REPORT clavulanic acid (Unverified Allergy, Mild, RASH AND VISUAL DISTURBANCES/ VISUAL LOSS, 03/21/15) PER PT REPORT cefuroxime axetil (Unverified Allergy, Unknown, PER PATIENT CAN TAKE ROCEPHIN, 03/21/15) PER [facility] PATIENT RECEIVED ROCEPHIN ON 02/23 WITHOUT ISSUE levofloxacin (Unverified Allergy, Unknown, Tachycardia, 05/10/18) tramadol (Unverified Adverse Reaction, Unknown, HEADACHE, 01/05/15) Uncoded Allergies: PENICILLIN (Allergy, Mild, RASH, 03/21/15) PER PT REPORT Home Medications Acetazolamide 125 Mg Tablet, 62.5 MG PO DAILY, (Reported) Capsaicin 1 Each Adh..patch, 1 EACH TP BID PRN for PAIN-MODERATE Prescribed by: AMPARO WHITE on 02/10/17 1525 Cholestyramine/Aspartame 4 G/Pkt Packet, 2 G PO HS, (Reported) PT STATES ONLY TAKES HALF DOSE NOW (2G) AND MIXES IT WITH WATER Cyclobenzaprine Hcl 10 Mg Tablet, 0.5 TAB PO HS, (Reported) Hydrocodone Bit/Acetaminophen 1 Each Tablet, 0.5 EACH PO Q4H PRN, (Reported) PT STATES TAKES 1/2 TAB Q4-6H PRN PAIN D/T INCREASED DOSE CAUSES DROWSINESS Hydroxyzine Pamoate 25 Mg Cap, 25 MG PO PRN, (Reported) Nebivolol HCl 10 Mg Tab, 15 MG PO DAILY, (Reported) Warfarin Sodium 5 Mg Tablet, 5 MG PO DAILY, (Reported) Warfarin Sodium 7.5 Mg Tablet, 7.5 MG PO DAILY, (Reported) 7.5 MG TWO DAYS A WEEK Patient Home Medication List Home Medication List Reviewed: Yes Review of Systems Review of Systems Constitutional: no symptoms reported, see HPI Ears: See HPI, Pain Nose: no symptoms reported, see HPI Mouth: no symptoms reported, see HPI Musculoskeletal: see HPI, joint pain (left TMJ) All Other Systems Reviewed Negative Unless Noted: Yes Past Ffebstf-Perjnw-Uwuinm Hx Past Med/Social Hx: Reviewed Nursing Past Med/Soc Hx Patient Social History Alcohol Use: Denies Use Recreational Drug Use: No Type Used: Cigarettes 2nd Hand Smoke Exposure: No Recent Foreign Travel: No Contact w/Someone Who Travel: No Recent Infectious Disease Expo: No Recent Hopitalizations: No Physical Abuse: No Sexual Abuse: No Mistreated: No Fear: No Immunizations Up To Date Tetanus Booster (TDap): More than 5yrs PED Vaccines UTD: No Date of Influenza Vaccine: Mar 23, 2018 Seasonal Allergies Seasonal Allergies: No Past Medical History Surgeries: Yes (L SHOULDERX2, DNC) Section, Gallbladder, Hysterectomy, Orthopedic Respiratory: Yes Pulmonary Embolism Cardiac: Yes (TACHYCARDIA, POTS SYNDROME, NORMAL STRESS TEST 11/2014) Chronic Edema/Swelling, Hypertension Neurological: Yes (PSEUDOTUMOR CEREBRI DX 12/2009) Headaches /Migraines Reproductive Disorders: Yes (CHORIOCARCINOMA, MULTIPLE MISCARRIAGES) Female Reproductive Disorders: Endometriosis 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 07/2009) Uterine Psychosocial: Yes Anxiety Integumentary: No Blood Disorders: No Family Medical History No Pertinent Family Hx Physical Exam Vital Signs Vital Signs - First Documented 05/10/18 11:50 Temp 98.5 Pulse 75 Resp 16 B/P (MAP) 111/70 (84) Pulse Ox 97 Height, Weight, BMI Height: 5'3" Weight: 170lbs. 0.0oz. [id number]; 30.1 BMI Method:Stated General Appearance: WD/WN, no apparent distress Eyes: bilateral eye normal inspection, bilateral eye PERRL, bilateral eye EOMI Ears: left ear other (trace erythema noted in canal, no inflammation or tenderness); bilateral ear auricle normal, bilateral ear TM normal Nose: normal inspection, active bleeding, discharge Mouth/Throat: pharynx normal; No dental tenderness; mandibular swelling, other (tenderness and crepitus at the left TMJ, increased tenderness over the left mastoid) Neck: full range of motion, supple, normal inspection, lymphadenopathy (R), lymphadenopathy (L) Respiratory: chest non-tender, lungs clear, normal breath sounds Gastrointestinal: normal bowel sounds, non tender, soft Neurologic/Psychiatric: no motor/sensory deficits, alert, normal mood/affect, oriented x 3 Skin: normal color, warm/dry Progress/Results/Core Measures Results/Orders My Orders Orders - NED AGUSTIN Ceftriaxone For Iv Use (Rocephin For I (05/10/18 13:00) Lidocaine 1% Inj 20 Ml (Xylocaine 1% Inj (05/10/18 13:00) Ketorolac Injection (Toradol Injection) (05/10/18 12:56) Ceftriaxone For Iv Use (Rocephin For I (05/10/18 13:03) Medications Given in ED Current Medications Medications Dose Ordered Sig/Levi Route Start Time Stop Time Status Last Admin Dose Admin Lidocaine HCl 2.1 ml ONCE ONCE INJ 05/10/18 13:00 05/10/18 13:01 DC 05/10/18 13:12 2.1 ML Vital Signs/I&O 05/10/18 11:50 Temp 98.5 Pulse 75 Resp 16 B/P (MAP) 111/70 (84) Pulse Ox 97 Blood Pressure Mean: 84 Departure Impression Primary Impression: Temporomandibular joint arthralgia Qualified Codes: M26.622 - Arthralgia of left temporomandibular joint Additional Impression: Mastoiditis of left side Disposition: HOME, SELF-CARE Condition: Improved Departure-Patient Inst. Decision time for Depature: 13:20 Referrals: KRISTOFER BRAMBILA DO (PCP/Family) Primary Care Physician Patient Instructions: Mastoiditis (DC), Temporomandibular Joint (TMJ) Disorders (DC) Add. Discharge Instructions: Continue to take your home medications. Warm moist compresses to left TMJ Discontinue use of ibuprofen, take Tylenol arthritis every 6 hours. Follow-up with Dr. Brambila tomorrow for repeat Rocephin injection. Return to emergency department for new, urgent health care concerns. All discharge instructions reviewed with patient and/or family. Voiced understanding. Copy Copies To 1: KRISTOFER BRAMBILA AMY ARNP May 10, 2018 13:01
[2018-05-10] MEDS ORDERED: cefTRIAXone 1 GM/10 ML for IV (ROCEPHIN) ONE (13:03)
[2018-05-10 15:13] VITALS: BP 120/71
== END 2018-05-10 13:28 | disposition home or self-care (01) ==
LOC: EDUNIT# 11:29 → ER 11:30
DX: M26.622 Arthralgia of left temporomandibular joint (principal); H70.92 Unspecified mastoiditis, left ear; I10 Essential (primary) hypertension; G43.909 Migraine, unspecified, not intractable, without status migrainosus; G93.2 Benign intracranial hypertension; F41.9 Anxiety disorder, unspecified; Z85.42 Personal history of malignant neoplasm of other parts of uterus; Z90.49 Acquired absence of other specified parts of digestive tract; Z87.19 Personal history of other diseases of the digestive system; Z88.2 Allergy status to sulfonamides; Z88.8 Allergy status to other drugs, medicaments and biological substances; Z88.0 Allergy status to penicillin; Z88.6 Allergy status to analgesic agent; Z79.01 Long term (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; Z90.710 Acquired absence of both cervix and uterus; Z98.890 Other specified postprocedural states; Z86.711 Personal history of pulmonary embolism
CPT/HCPCS: 99284

== ENCOUNTER 2018-07-03 16:47 | Outpatient (CLI) | payer BC ==
[~2018-07-03] VITALS: Ht 160 cm; Wt 77.1 kg
[2018-07-03 16:45] VITALS: BP 120/78
[2018-07-03] MEDS ORDERED: cefTRIAXone 1 GM/10 ML for IV (ROCEPHIN) ONE (16:54)
[2018-07-03] MEDS ORDERED: LIDOCAINE 1% INJ 20 ML 20 ML VIAL ONE (16:56)
[2018-07-03 17:05] VITALS: BP 120/78
[2018-07-03] MEDS ORDERED: cefTRIAXone 1,000 MG/2.86 ml vial (IM ONLY) IM SCH (17:30)
[2018-07-03] MEDS ORDERED: LIDOCAINE 1% INJ 20 ML 20 ML VIAL INJ ONE (17:30)
== END 2018-07-03 17:05 | disposition home or self-care (01) ==
LOC: SDC 16:47
PROVIDERS: ATTEND Nurse Practitioner Family
DX: B99.9 Unspecified infectious disease (principal); R79.89 Other specified abnormal findings of blood chemistry
CPT/HCPCS: 96365; 96372

== ENCOUNTER 2018-07-18 13:25 | Emergency (ER) | payer BC | END 2018-07-18 14:05 | disposition home or self-care (01) | LOC: ER 13:25 ==

== ENCOUNTER → 2018-09-10 | Outpatient (CLI) | payer BC ==
--- NOTE | 2018-09-10 15:18 | Diagnostic Imaging Report ---
PROCEDURE: US Thyroid. TECHNIQUE: Multiple real-time grayscale images were obtained of the thyroid in various projections. INDICATION: Right posterior neck mass and family history of thyroid carcinoma. FINDINGS: Right lobe of the thyroid measures 5.0 x 2.1 x 2.0 cm and the left lobe measures 3.9 x 1.7 x 1.7 cm. The isthmus is 7 mm in thickness. Tiny nodule at the isthmus measures approximately 3 mm. No other thyroid mass is detected. Interrogation of the mass in the right neck was also performed. This measures 1.1 x 0.4 x 0.8 cm. This is unchanged from prior exam and again is most suggestive of a small lymph node. IMPRESSION: 1. Unremarkable thyroid ultrasound. No dominant mass is detected. 2. Stable right posterior neck lymph node. Dictated by: Dictated on workstation # [id number]
== END ==
LOC: RAD 13:49
PROVIDERS: ATTEND Family Medicine
DX: R22.1 Localized swelling, mass and lump, neck (principal); Z80.8 Family history of malignant neoplasm of other organs or systems
CPT/HCPCS: 76536

== ENCOUNTER 2019-03-14 11:14 | Emergency (ER) | payer BC | END 2019-03-14 13:15 | disposition home or self-care (01) | LOC: ER 11:14 ==

== ENCOUNTER 2019-04-30 09:05 | Outpatient (RCR) | payer BC | END 2019-07-29 | disposition home or self-care (01) | LOC: CARD 09:05 | PROVIDERS: ATTEND Internal Medicine Cardiovascular Disease | DX: R00.0 Tachycardia, unspecified (principal); R00.2 Palpitations; R94.31 Abnormal electrocardiogram [ECG] [EKG] | CPT/HCPCS: 93225; 93226 ==

== ENCOUNTER → 2019-05-26 | Outpatient (CLI) | payer BC ==
[2019-05-26 16:03] LABS: BILIRUBIN,URINE NEGATIVE (NEGATIVE); CLARITY,URINE CLEAR; COLOR,URINE YELLOW; GLUCOSE, URINE (UA) NEGATIVE (NEGATIVE); KETONES,URINE NEGATIVE (NEGATIVE); LEUKOCYTE ESTERASE ,URINE NEGATIVE (NEGATIVE); NITRITE,URINE NEGATIVE (NEGATIVE); PH,URINE 7.5 (5-9); PROTEIN,URINE NEGATIVE (NEGATIVE)
[2019-05-26 16:22] LABS: BACTERIA,URINE NEGATIVE /HPF; RBC,URINE 0-2 /HPF; WBC,URINE 0-2 /HPF
== END ==
LOC: LAB 15:20
PROVIDERS: ATTEND Nurse Practitioner Family
DX: J01.90 Acute sinusitis, unspecified (principal); B99.8 Other infectious disease; M35.9 Systemic involvement of connective tissue, unspecified; D68.61 Antiphospholipid syndrome; F32.9 Major depressive disorder, single episode, unspecified; C80.1 Malignant (primary) neoplasm, unspecified; M00.272 Other streptococcal arthritis, left ankle and foot; Z86.711 Personal history of pulmonary embolism; Z79.01 Long term (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
CPT/HCPCS: 36415; 81000; 86038; 86200; 86226; 86431

== ENCOUNTER 2019-07-06 12:37 | Emergency (ER) | payer BC ==
[~2019-07-06] VITALS: Ht 157.5 cm; Wt 76.8 kg
[2019-07-06 13:35] LABS: BASOPHILS % (AUTO) 0 % (0-10); EOSINOPHILS # (AUTO) 0.1 10^3/uL (0.0-0.3); EOSINOPHILS % (AUTO) 1 % (0-10); HEMATOCRIT 45 % (35-52); HEMOGLOBIN 15.5 G/DL (11.5-16.0); LYMPHOCYTES % (AUTO) 33 % (12-44); MEAN CORPUSCULAR HEMOGLOBIN 33 PG (25-34); MEAN CORPUSCULAR HGB CONC 34 G/DL (32-36); MEAN CORPUSCULAR VOLUME 95 FL (80-99); MEAN PLATELET VOLUME 9.3 FL (7.4-10.4); MONOCYTES # (AUTO) 0.7 X 10^3 (0.0-1.0); MONOCYTES % (AUTO) 7 % (0-12); NEUTROPHILS # (AUTO) 5.2 X 10^3 (1.8-7.8); NEUTROPHILS % (AUTO) 58 % (42-75); PLATELET COUNT 306 10^3/uL (130-400); RED CELL DISTRIBUTION WIDTH 12.5 % (10.0-14.5); WHITE BLOOD COUNT 8.9 10^3/uL (4.3-11.0)
[2019-07-06 13:38] LABS: INR 2.9 (0.8-1.4); PROTHROMBIN TIME PATIENT 31.6 SEC (12.2-14.7)
--- NOTE | 2019-07-06 14:05 | NUR ---
PT SITTING STRAIGHT UP IN BED W C-COLLAR IN PLACE. PT REMINDED OF C-COLLAR RESTRICTIONS D/T POSSIBLE INJURY OF NECK
[2019-07-06 14:06] LABS: TSH (THYROID ANALYZER) 1.37 UIU/ML (0.35-4.94)
--- NOTE | 2019-07-06 14:23 | ED General ---
General Chief Complaint: Neurological Problems Stated Complaint: TONGUE/FACE NUMB/IRREGULAR HR Nursing Triage Note: Pt amb to room #7 with c/o tachycardia, palpitations, anxiety, lip numbness/tingling, and bilat upper extremity numbness/tingling. Pt reports she experienced symptoms on 04/28/19 where she was diagnosed by her PCP with a viral infection. Pt reports she began to experience symptoms throughout the night of 07/05/18 and into this moring. Pt reports polyuria stating "I drink and it goes right through me." Pt currently denies symptoms. Nursing Sepsis Screen: No Definite Risk Source of Information: Patient Exam Limitations: No Limitations History of Present Illness Date Seen by Provider: Jul 06, 2019 Time Seen by Provider: 13:18 Initial Comments Here with report of intermittent tachycardia and numbness around her mouth and involving her tongue. Does have some anxiety concerns and she is currently quitting smoking. Noted that it occurred at nighttime a week ago and has been intermittently happening since. She does have history of DVT and pulmonary embolism and is concerned about that. She is currently on warfarin but she is unsure what her INR as. Did have previous history of thyroid concerned but is not sure where her thyroid hormone level is currently and she is not on hormone replacement. Denies nausea, vomiting or breathing problems currently. Did have diarrhea illness a few weeks back that is resolved. She thinks she may still be a bit dehydrated. She is reporting drinking a lot but states it goes right through her. Timing/Duration: 1 Week, Intermittent, Other (occurred this morning for an hour or so but essentially gone now.) Severity: Moderate Modifying Factors: improves with Rest Associated Systoms: No Chest Pain, No Cough, No Fever/Chills, No Nausea/Vomiting, No Shortness of Air; Weakness Allergies and Home Medications Allergies Coded Allergies: Sulfa (Sulfonamide Antibiotics) (Unverified Allergy, Severe, PER PT "THROAT SWELLS", 09/11/11) bupropion (Unverified Allergy, Severe, IRREG HEART RATE, 10/21/14) amoxicillin (Unverified Allergy, Mild, RASH AND VISUAL DISTURBANCES/VISUAL LOSS, 03/21/15) PER PT REPORT clavulanic acid (Unverified Allergy, Mild, RASH AND VISUAL DISTURBANCES/VISUAL LOSS, 03/21/15) PER PT REPORT cefuroxime axetil (Unverified Allergy, Unknown, PER PATIENT CAN TAKE ROCEPHIN, 03/21/15) PER [facility] PATIENT RECEIVED ROCEPHIN ON 02/23 WITHOUT ISSUE ciprofloxacin (Verified Allergy, Unknown, 03/14/19) levofloxacin (Unverified Allergy, Unknown, Tachycardia, 05/10/18) lidocaine (Verified Allergy, Unknown, 03/14/19) tramadol (Unverified Adverse Reaction, Unknown, HEADACHE, 01/05/15) Uncoded Allergies: PENICILLIN (Allergy, Mild, RASH, 03/21/15) PER PT REPORT Home Medications Acetazolamide 125 Mg Tablet, 62.5 MG PO DAILY, (Reported) Capsaicin 1 Each Adh..patch, 1 EACH TP BID PRN for PAIN-MODERATE Prescribed by: AMPARO WHITE on 02/10/17 1525 Cholestyramine/Aspartame 4 G/Pkt Packet, 2 G PO HS, (Reported) PT STATES ONLY TAKES HALF DOSE NOW (2G) AND MIXES IT WITH WATER Cyclobenzaprine Hcl 10 Mg Tablet, 0.5 TAB PO HS, (Reported) Hydrocodone Bit/Acetaminophen 1 Each Tablet, 0.5 EACH PO Q4H PRN, (Reported) PT STATES TAKES 1/2 TAB Q4-6H PRN PAIN D/T INCREASED DOSE CAUSES DROWSINESS Hydroxyzine Pamoate 25 Mg Cap, 25 MG PO PRN, (Reported) Nebivolol HCl 10 Mg Tab, 15 MG PO DAILY, (Reported) Warfarin Sodium 5 Mg Tablet, 5 MG PO DAILY, (Reported) Warfarin Sodium 7.5 Mg Tablet, 7.5 MG PO DAILY, (Reported) 7.5 MG TWO DAYS A WEEK Patient Home Medication List Home Medication List Reviewed: Yes Review of Systems Review of Systems Constitutional: see HPI; No chills, No fever EENTM: see HPI; No ear pain, No eye pain, No vision loss Respiratory: no symptoms reported Cardiovascular: no symptoms reported Gastrointestinal: No abdominal pain, No nausea, No vomiting Genitourinary: no symptoms reported Musculoskeletal: no symptoms reported Skin: no symptoms reported Psychiatric/Neurological: See HPI, Anxiety, Paresthesia Hematologic/Lymphatic: See HPI, Easy Bruising All Other Systems Reviewed Negative Unless Noted: Yes Past [place]-Lzxvnb-Dsqpqy Hx Past Med/Social Hx: Reviewed Nursing Past Med/Soc Hx Patient Social History Alcohol Use: Denies Use Recreational Drug Use: No Type Used: Cigarettes 2nd Hand Smoke Exposure: Yes (smokes and uses hubert) Recent Foreign Travel: No Contact w/Someone Who Travel: No Recent Infectious Disease Expo: No Recent Hopitalizations: No Immunizations Up To Date Tetanus Booster (TDap): More than 5yrs PED Vaccines UTD: No Date of Influenza Vaccine: Mar 23, 2018 Seasonal Allergies Seasonal Allergies: No Past Medical History Surgeries: Yes (L SHOULDERX2, DNC) Section, Gallbladder, Hysterectomy, Orthopedic Respiratory: Yes Pulmonary Embolism Cardiac: Yes (TACHYCARDIA, POTS SYNDROME, NORMAL STRESS TEST 11/2014) Chronic Edema/Swelling, Hypertension, Palpitations Neurological: Yes (PSEUDOTUMOR CEREBRI DX 12/2009) Headaches /Migraines Reproductive Disorders: Yes (CHORIOCARCINOMA, MULTIPLE MISCARRIAGES) Female Reproductive Disorders: 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 07/2009) Uterine Psychosocial: Yes Anxiety Integumentary: No Blood Disorders: No Family Medical History Reviewed Nursing Family Hx No Pertinent Family Hx Physical Exam Vital Signs Vital Signs - First Documented 07/06/19 12:44 Temp 36.5 Pulse 74 Resp 17 B/P (MAP) 125/99 (108) Pulse Ox 100 O2 Delivery Room Air Capillary Refill : Less Than 3 Seconds Height, Weight, BMI Height: 5'3.00" Weight: 168lbs. 0.0oz. 76.436737bq; 30.00 BMI Method:Stated General Appearance: No Apparent Distress, WD/WN HEENT: PERRL/EOMI, Pharynx Normal Neck: Non Tender, Supple Respiratory: Lungs Clear, Normal Breath Sounds Cardiovascular: Regular Rate, Rhythm, No Murmur Gastrointestinal: Non Tender, Soft Back: Normal Inspection, No CVA Tenderness, No Vertebral Tenderness Extremity: Normal Range of Motion, Non Tender, No Calf Tenderness Neurologic/Psychiatric: Alert, Oriented x3 Skin: Warm/Dry, Ecchymosis (a few ecchymotic lesions including right leg and right upper arm) Progress/Results/Core Measures Suspected Sepsis Recent Fever Within 48 Hours: No Infection Criteria Present: None New/Unexplained Altered Menta: No Sepsis Screen: No Definite Risk SIRS Temperature: Pulse: 74 Respiratory Rate: 17 Laboratory Tests 07/06/19 12:55: White Blood Count 8.9 Blood Pressure 125 /99 Mean: 108 Laboratory Tests 07/06/19 12:55: Creatinine 0.82, INR Comment 2.9H, Platelet Count 306, Total Bilirubin 0.4 Results/Orders Lab Results Laboratory Tests Test 07/06/19 12:55 Range/Units White Blood Count 8.9 4.3-11.0 10^3/uL Red Blood Count 4.74 4.35-5.85 10^6/uL Hemoglobin 15.5 11.5-16.0 G/DL Hematocrit 45 35-52 % Mean Corpuscular Volume 95 80-99 FL Mean Corpuscular Hemoglobin 33 25-34 PG Mean Corpuscular Hemoglobin Concent 34 32-36 G/DL Red Cell Distribution Width 12.5 10.0-14.5 % Platelet Count 306 130-400 10^3/uL Mean Platelet Volume 9.3 7.4-10.4 FL Neutrophils (%) (Auto) 58 42-75 % Lymphocytes (%) (Auto) 33 12-44 % Monocytes (%) (Auto) 7 0-12 % Eosinophils (%) (Auto) 1 0-10 % Basophils (%) (Auto) 0 0-10 % Neutrophils # (Auto) 5.2 1.8-7.8 X 10^3 Lymphocytes # (Auto) 3.0 1.0-4.0 X 10^3 Monocytes # (Auto) 0.7 0.0-1.0 X 10^3 Eosinophils # (Auto) 0.1 0.0-0.3 10^3/uL Basophils # (Auto) 0.0 0.0-0.1 10^3/uL Prothrombin Time 31.6 H 12.2-14.7 SEC INR Comment 2.9 H 0.8-1.4 Activated Partial Thromboplast Time 45 H 24-35 SEC Sodium Level 141 135-145 MMOL/L Potassium Level 3.5 L 3.6-5.0 MMOL/L Chloride Level 103 98-107 MMOL/L Carbon Dioxide Level 24 21-32 MMOL/L Anion Gap 14 5-14 MMOL/L Blood Urea Nitrogen 12 7-18 MG/DL Creatinine 0.82 0.60-1.30 MG/DL Estimat Glomerular Filtration Rate > 60 BUN/Creatinine Ratio 15 Glucose Level 106 H 70-105 MG/DL Calcium Level 9.7 8.5-10.1 MG/DL Corrected Calcium 8.5-10.1 MG/DL Magnesium Level 2.0 1.6-2.4 MG/DL Total Bilirubin 0.4 0.1-1.0 MG/DL Aspartate Amino Transf (AST/SGOT) 25 5-34 U/L Alanine Aminotransferase (ALT/SGPT) 32 0-55 U/L Alkaline Phosphatase 56 40-136 U/L Troponin I < 0.028 <0.028 NG/ML Total Protein 7.9 6.4-8.2 GM/DL Albumin 5.0 H 3.2-4.5 GM/DL TSH [place] Testing 1.37 0.35-4.94 UIU/ML My Orders Orders - RICK PEREA MD Cbc With Automated Diff (07/06/19 13:22) Magnesium (07/06/19 13:22) Protime With Inr (07/06/19 13:22) Partial Thromboplastin Time (07/06/19 13:22) Thyroid Analyzer (07/06/19 13:22) Troponin I (07/06/19 13:22) Ed Iv/Invasive Line Start (07/06/19 13:22) Ekg Tracing (07/06/19 13:22) Monitor-Rhythm Ecg Trace Only (07/06/19 13:22) Comprehensive Metabolic Panel (07/06/19 14:22) Ed Iv/Invasive Line Start (07/06/19 14:24) Ns Iv 500 Ml (Sodium Chloride 0.9%) (07/06/19 14:24) Medications Given in ED Current Medications Medications Dose Ordered Sig/Levi Route Start Time Stop Time Status Last Admin Dose Admin Sodium Chloride 500 ml @ 0 mls/hr Q0M ONCE IV 07/06/19 14:24 07/06/19 14:25 DC 07/06/19 14:28 500 MLS/HR Vital Signs/I&O 07/06/19 12:44 Temp 36.5 Pulse 74 Resp 17 B/P (MAP) 125/99 (108) Pulse Ox 100 O2 Delivery Room Air Capillary Refill : Less Than 3 Seconds Blood Pressure Mean: 108 Progress Note : Progress Note Seen and evaluated. IV, labs, EKG, normal saline 500 mL bolus ordered. 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 1437: No ectopy noted. Pending chemistry panel but otherwise negative workup thus far. 1456: Overall remained resolved. No acute findings on labs. At this point I think it safe to discharge home. She does admit that she is using 3 of her Vistaril tablets daily currently during this period of quitting smoking. She is using Juul vape device and is down to 2 cigarettes a last few days. She will continue the quitting smoking. I think this will benefit her greatly but may have increased her anxiety some. I have talked with her about following up with her doctor and we'll send a copy of the chart to him as well. Discharged home with return precautions. Patient verbalize understanding instructions and agreement with plan. ECG Initial ECG Impression Date: Jul 06, 2019 Initial ECG Impression Time: 13:32 Initial ECG Rate: 67 Initial ECG Rhythm: Normal Sinus Comment Sinus rhythm with normal axis. No evidence of ST elevation NE. Similar to previous of 03/21/19. Interpreted by me. Departure Impression Primary Impression: Palpitations Additional Impression: Anxiety Disposition: 01 HOME, SELF-CARE Condition: Improved Departure-Patient Inst. Decision time for Depature: 14:59 Referrals: STAR MARTINEZ MD (PCP) Primary Care Physician Patient Instructions: Anxiety, Adult (DC), Palpitations (DC), Tachycardia (DC) Add. Discharge Instructions: All discharge instructions reviewed with patient and/or family. Voiced understanding. Follow-up with your doctor regarding current concerns. Continue home medicines as directed. Return for worse pain, fever, vomiting, weakness, breathing problems or other concerns as needed. You're doing very well on quitting smoking and I encourage you to continue that process. Copy Copies To 1: STAR MARTINEZ MD Copies To 2: JAG MUKHERJEE MD, TIMOTHY D MD Jul 06, 2019 14:23
[2019-07-06] MEDS ORDERED: NS IV 500 ML 500 ML IV ONE (14:24)
[2019-07-06 14:41] LABS: ALANINE AMINOTRANSFERASE 32 U/L (0-55); ALKALINE PHOSPHATASE 56 U/L (40-136); BILIRUBIN,TOTAL 0.4 MG/DL (0.1-1.0); BUN/CREATININE RATIO 15; CALCIUM 9.7 MG/DL (8.5-10.1); CARBON DIOXIDE 24 MMOL/L (21-32); CHLORIDE 103 MMOL/L (98-107); CREATININE SERUM 0.82 MG/DL (0.60-1.30); GFR ESTIMATED > 60; GLUCOSE 106 MG/DL (70-105); POTASSIUM 3.5 MMOL/L (3.6-5.0); SODIUM 141 MMOL/L (135-145); TOTAL PROTEIN 7.9 GM/DL (6.4-8.2)
[2019-07-06 15:15] VITALS: BP 124/88
== END 2019-07-06 15:12 | disposition home or self-care (01) ==
LOC: EDUNIT# 12:37 → ER 12:38
DX: F41.9 Anxiety disorder, unspecified (principal); I10 Essential (primary) hypertension; G43.909 Migraine, unspecified, not intractable, without status migrainosus; K58.9 Irritable bowel syndrome, unspecified; Z85.42 Personal history of malignant neoplasm of other parts of uterus; Z87.891 Personal history of nicotine dependence; Z86.718 Personal history of other venous thrombosis and embolism; Z86.711 Personal history of pulmonary embolism; Z79.01 Long term (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; Z88.2 Allergy status to sulfonamides; Z88.5 Allergy status to narcotic agent; Z88.1 Allergy status to other antibiotic agents; Z88.8 Allergy status to other drugs, medicaments and biological substances; Z88.0 Allergy status to penicillin; Z77.22 Contact with and (suspected) exposure to environmental tobacco smoke (acute) (chronic); Z90.710 Acquired absence of both cervix and uterus
CPT/HCPCS: 36415; 80053; 83735; 84443; 84484; 85025; 85610; 85730; 93005; 96360

== ENCOUNTER 2019-07-13 13:17 | Emergency (ER) | payer BC ==
[~2019-07-13] VITALS: Ht 157 cm; Wt 84.1 kg
[2019-07-13] MEDS ORDERED: RT-ALBUTEROL SULF 2.5 MG/3 ML PRE-MIX VIAL INH STA (15:06)
[2019-07-13 15:14] LABS: BASOPHILS % (AUTO) 0 % (0-10); EOSINOPHILS # (AUTO) 0.1 10^3/uL (0.0-0.3); EOSINOPHILS % (AUTO) 1 % (0-10); HEMATOCRIT 42 % (35-52); HEMOGLOBIN 14.1 G/DL (11.5-16.0); LYMPHOCYTES # (AUTO) 2.7 X 10^3 (1.0-4.0); LYMPHOCYTES % (AUTO) 32 % (12-44); MEAN CORPUSCULAR HEMOGLOBIN 32 PG (25-34); MEAN CORPUSCULAR HGB CONC 33 G/DL (32-36); MEAN CORPUSCULAR VOLUME 96 FL (80-99); MEAN PLATELET VOLUME 8.9 FL (7.4-10.4); MONOCYTES # (AUTO) 0.5 X 10^3 (0.0-1.0); MONOCYTES % (AUTO) 7 % (0-12); NEUTROPHILS % (AUTO) 60 % (42-75); PLATELET COUNT 306 10^3/uL (130-400); RED CELL DISTRIBUTION WIDTH 12.4 % (10.0-14.5); WHITE BLOOD COUNT 8.3 10^3/uL (4.3-11.0)
[2019-07-13 15:20] LABS: PROTHROMBIN TIME PATIENT 23.7 SEC (12.2-14.7)
[2019-07-13 15:29] LABS: ALANINE AMINOTRANSFERASE 24 U/L (0-55); ALBUMIN 4.5 GM/DL (3.2-4.5); ALKALINE PHOSPHATASE 58 U/L (40-136); BILIRUBIN,TOTAL 0.2 MG/DL (0.1-1.0); BUN/CREATININE RATIO 16; CALCIUM 9.3 MG/DL (8.5-10.1); CARBON DIOXIDE 29 MMOL/L (21-32); CHLORIDE 104 MMOL/L (98-107); CREATININE SERUM 0.83 MG/DL (0.60-1.30); GFR ESTIMATED > 60; GLUCOSE 88 MG/DL (70-105); POTASSIUM 3.6 MMOL/L (3.6-5.0); SODIUM 141 MMOL/L (135-145); TOTAL PROTEIN 7.2 GM/DL (6.4-8.2)
--- NOTE | 2019-07-13 15:30 | NUR ---
Low BP at this time due to pt having arm bent and cuff displaced. Cuff repositioned and BP checked again.
--- NOTE | 2019-07-13 15:53 | Diagnostic Imaging Report ---
INDICATION: Pneumonia. FINDINGS: The lungs are clear. No failure, effusion or pneumothorax. No free air beneath the diaphragms. IMPRESSION: No acute appearing abnormality. Dictated by: Dictated on workstation # [id number]
--- NOTE | 2019-07-13 16:00 | NUR ---
Low BP at this time due to pt having arm bent and cuff displaced. Cuff repositioned and BP checked again.
--- NOTE | 2019-07-13 16:15 | NUR ---
Low BP at this time due to pt having arm bent and cuff displaced. Cuff repositioned and BP checked again.
--- NOTE | 2019-07-13 16:38 | ED General ---
General Chief Complaint: Respiratory Problems Stated Complaint: POSSIBLE BLOOD CLOT Nursing Triage Note: CONCERNED SHE HAS A BLOOD CLOT AGAIN IN HER LUNGS. DX WITH PNEUMONIA ON FRI AND HAS HAD X3 INJECTIONS OF ROCEPHIN. HER DR WANTS HER CHECKED FOR CUSHINGS SYNDROME. ALSO STATES SINCE LAST NIGHT SHE THINKS THE RIGHT SIDE OF HER FACE FEELS STIFFER AND FEELS NUMB AT TIMES. Nursing Sepsis Screen: No Definite Risk Source of Information: Patient, Old Records Exam Limitations: No Limitations History of Present Illness Date Seen by Provider: Jul 13, 2019 Time Seen by Provider: 16:32 Initial Comments This 44-year-old woman presents to the emergency room with primary complaint of difficulty breathing as if she is "breathing through a straw". She was seen and worked up in the emergency room on July 06. A couple days later she was seen at the urgent care clinic and was reportedly diagnosed with pneumonia by chest x-ray. She has received Rocephin for the past 3 days. She reports erratic heart beat. She denies any cough. She has some atypical chest pain with inspiration. She takes warfarin because of prior PE and antiphospholipid antibody syndrome. She is afebrile. Vital signs are normal on assessment. She has no hypoxia or tachycardia. Her breathing is relaxed with good air movement. She has a secondary complaint of numbness and swelling of the right face. This is nontender and not inflamed. This has been present for about one week. Patient notes that she has had recent steroid therapy and Botox therapy of her face and neck. She uses Botox because of headaches. She also inquires about being tested for Liu's syndrome. Patient reports recently quitting smoking and was congratulated. Allergies and Home Medications Allergies Coded Allergies: Sulfa (Sulfonamide Antibiotics) (Unverified Allergy, Severe, PER PT "THROAT SWELLS", 09/11/11) bupropion (Unverified Allergy, Severe, IRREG HEART RATE, 10/21/14) amoxicillin (Unverified Allergy, Mild, RASH AND VISUAL DISTURBANCES/VISUAL LOSS, 03/21/15) PER PT REPORT clavulanic acid (Unverified Allergy, Mild, RASH AND VISUAL DISTURBANCES/VISUAL LOSS, 03/21/15) PER PT REPORT cefuroxime axetil (Unverified Allergy, Unknown, PER PATIENT CAN TAKE ROCEPHIN, 03/21/15) PER [facility] PATIENT RECEIVED ROCEPHIN ON 02/23 WITHOUT ISSUE ciprofloxacin (Verified Allergy, Unknown, 03/14/19) levofloxacin (Unverified Allergy, Unknown, Tachycardia, 05/10/18) lidocaine (Verified Allergy, Unknown, 03/14/19) tramadol (Unverified Adverse Reaction, Unknown, HEADACHE, 01/05/15) Uncoded Allergies: PENICILLIN (Allergy, Mild, RASH, 03/21/15) PER PT REPORT Home Medications Acetazolamide 125 Mg Tablet, 62.5 MG PO DAILY, (Reported) Capsaicin 1 Each Adh..patch, 1 EACH TP BID PRN for PAIN-MODERATE Prescribed by: AMPARO WHITE on 02/10/17 1525 Cholestyramine/Aspartame 4 G/Pkt Packet, 2 G PO HS, (Reported) PT STATES ONLY TAKES HALF DOSE NOW (2G) AND MIXES IT WITH WATER Cyclobenzaprine Hcl 10 Mg Tablet, 0.5 TAB PO HS, (Reported) Hydrocodone Bit/Acetaminophen 1 Each Tablet, 0.5 EACH PO Q4H PRN, (Reported) PT STATES TAKES 1/2 TAB Q4-6H PRN PAIN D/T INCREASED DOSE CAUSES DROWSINESS Hydroxyzine Pamoate 25 Mg Cap, 25 MG PO PRN, (Reported) Nebivolol HCl 10 Mg Tab, 15 MG PO DAILY, (Reported) Warfarin Sodium 5 Mg Tablet, 5 MG PO DAILY, (Reported) Warfarin Sodium 7.5 Mg Tablet, 7.5 MG PO DAILY, (Reported) 7.5 MG TWO DAYS A WEEK Patient Home Medication List Home Medication List Reviewed: Yes Review of Systems Review of Systems Constitutional: no symptoms reported EENTM: see HPI Respiratory: see HPI Cardiovascular: see HPI Genitourinary: no symptoms reported : No Musculoskeletal: no symptoms reported Skin: no symptoms reported Psychiatric/Neurological: See HPI Hematologic/Lymphatic: No Symptoms Reported Immunological/Allergic: no symptoms reported Past Rhcmxcm-Ybjclg-Mrdasf Hx Past Med/Social Hx: Reviewed Nursing Past Med/Soc Hx Patient Social History Alcohol Use: Denies Use Recreational Drug Use: No Smoking Status: Current Everyday Smoker Type Used: Cigarettes 2nd Hand Smoke Exposure: Yes (smokes and uses hubert) Recent Foreign Travel: No Contact w/Someone Who Travel: No Recent Infectious Disease Expo: No Recent Hopitalizations: No Immunizations Up To Date Tetanus Booster (TDap): More than 5yrs PED Vaccines UTD: No Date of Influenza Vaccine: Mar 23, 2018 Seasonal Allergies Seasonal Allergies: No Past Medical History Surgeries: Yes (L SHOULDERX2, DNC) Section, Gallbladder, Hysterectomy, Orthopedic Respiratory: Yes Pulmonary Embolism Cardiac: Yes (TACHYCARDIA, POTS SYNDROME, NORMAL STRESS TEST 11/2014) Chronic Edema/Swelling, Hypertension, Palpitations Neurological: Yes (PSEUDOTUMOR CEREBRI DX 12/2009) Headaches /Migraines Reproductive Disorders: Yes (CHORIOCARCINOMA, MULTIPLE MISCARRIAGES) Female Reproductive Disorders: Endometriosis ADJUNCT FACULTY FOR MEDICAL TERMINOLOGY History: Hysterectomy Sexually Transmitted Disease: No HIV/AIDS: No Genitourinary: No Gastrointestinal: Yes (S/P KUSHAL) Gall Bladder Disease, Irritable Bowel Musculoskeletal: Yes (STATES WAS DIAGNOSED BY DR CHAVES, "STREP ARTHRITIS", CHRONIC NECK PAIN ) Arthritis, Fibromyalgia, Chronic Back Pain Endocrine: No HEENT: Yes ("issues with left ear- sees Dr Lugo") Loss of Vision: Denies Hearing Impairment: Denies Cancer: Yes (CHORIOCARCINOMA/MOLAR -D&C & MTX [place]. 07/2009) Uterine Psychosocial: Yes Anxiety Integumentary: No Blood Disorders: No Family Medical History No Pertinent Family Hx Physical Exam Vital Signs Vital Signs - First Documented 07/13/19 13:45 Temp 36.8 Pulse 86 Resp 16 B/P (MAP) 124/85 (98) Pulse Ox 99 O2 Delivery Room Air Capillary Refill : Less Than 3 Seconds Height, Weight, BMI Height: 5'3.00" Weight: 168lbs. 0.0oz. 76.847258dq; 34.00 BMI Method:Stated General Appearance: No Apparent Distress, WD/WN, Obese HEENT: PERRL/EOMI, Normal ENT Inspection, Other (patient may have some fleming fac ies although I am not familiar with her typical facial appearance to make a comparison. She does appear to be slightly broderick in the right cheek than the left. She has some numbness without tenderness in the right maxillary region.) Neck: Normal Inspection Respiratory: Lungs Clear, Normal Breath Sounds, No Accessory Muscle Use, No Respiratory Distress, Other (very slight wheezing at end of forced expiration) Cardiovascular: Regular Rate, Rhythm, No Edema, No Murmur, Normal Peripheral Pulses Gastrointestinal: Normal Bowel Sounds, Non Tender, Soft Extremity: Normal Inspection, No Pedal Edema Neurologic/Psychiatric: Alert, Oriented x3, No Motor/Sensory Deficits, Normal Mood/Affect, Other (forehead paralysis secondary to Botox, otherwise unremarkable facial exam) Skin: Normal Color, Warm/Dry Progress/Results/Core Measures Suspected Sepsis Recent Fever Within 48 Hours: No Infection Criteria Present: Documented Infection New/Unexplained Altered Menta: No Sepsis Screen: No Definite Risk SIRS Temperature: Pulse: 86 Respiratory Rate: 16 Laboratory Tests 07/13/19 14:30: White Blood Count 8.3 Blood Pressure 124 /85 Mean: 98 Laboratory Tests 07/13/19 14:30: Creatinine 0.83, INR Comment 2.0H, Platelet Count 306, Total Bilirubin 0.2 Results/Orders Lab Results Laboratory Tests Test 07/13/19 14:30 Range/Units White Blood Count 8.3 4.3-11.0 10^3/uL Red Blood Count 4.38 4.35-5.85 10^6/uL Hemoglobin 14.1 11.5-16.0 G/DL Hematocrit 42 35-52 % Mean Corpuscular Volume 96 80-99 FL Mean Corpuscular Hemoglobin 32 25-34 PG Mean Corpuscular Hemoglobin Concent 33 32-36 G/DL Red Cell Distribution Width 12.4 10.0-14.5 % Platelet Count 306 130-400 10^3/uL Mean Platelet Volume 8.9 7.4-10.4 FL Neutrophils (%) (Auto) 60 42-75 % Lymphocytes (%) (Auto) 32 12-44 % Monocytes (%) (Auto) 7 0-12 % Eosinophils (%) (Auto) 1 0-10 % Basophils (%) (Auto) 0 0-10 % Neutrophils # (Auto) 5.0 1.8-7.8 X 10^3 Lymphocytes # (Auto) 2.7 1.0-4.0 X 10^3 Monocytes # (Auto) 0.5 0.0-1.0 X 10^3 Eosinophils # (Auto) 0.1 0.0-0.3 10^3/uL Basophils # (Auto) 0.0 0.0-0.1 10^3/uL Prothrombin Time 23.7 H 12.2-14.7 SEC INR Comment 2.0 H 0.8-1.4 Activated Partial Thromboplast Time 35 24-35 SEC Sodium Level 141 135-145 MMOL/L Potassium Level 3.6 3.6-5.0 MMOL/L Chloride Level 104 98-107 MMOL/L Carbon Dioxide Level 29 21-32 MMOL/L Anion Gap 8 5-14 MMOL/L Blood Urea Nitrogen 13 7-18 MG/DL Creatinine 0.83 0.60-1.30 MG/DL Estimat Glomerular Filtration Rate > 60 BUN/Creatinine Ratio 16 Glucose Level 88 70-105 MG/DL Calcium Level 9.3 8.5-10.1 MG/DL Corrected Calcium 8.9 8.5-10.1 MG/DL Magnesium Level 2.0 1.6-2.4 MG/DL Total Bilirubin 0.2 0.1-1.0 MG/DL Aspartate Amino Transf (AST/SGOT) 20 5-34 U/L Alanine Aminotransferase (ALT/SGPT) 24 0-55 U/L Alkaline Phosphatase 58 40-136 U/L Myoglobin 45.0 10.0-92.0 NG/ML Troponin I < 0.028 <0.028 NG/ML C-Reactive Protein High Sensitivity 0.27 0.00-0.50 MG/DL Total Protein 7.2 6.4-8.2 GM/DL Albumin 4.5 3.2-4.5 GM/DL My Orders Orders - ALEXANDREA LIM MD Cbc With Automated Diff (07/13/19 15:06) Magnesium (07/13/19 15:06) Ekg Tracing (07/13/19 15:06) Comprehensive Metabolic Panel (07/13/19 15:06) Myoglobin Serum (07/13/19 15:06) Protime With Inr (07/13/19 15:06) Partial Thromboplastin Time (07/13/19 15:06) O2 (07/13/19 15:06) Monitor-Rhythm Ecg Trace Only (07/13/19 15:06) Ed Iv/Invasive Line Start (07/13/19 15:06) Troponin I (07/13/19 15:06) Hs C Reactive Protein (07/13/19 15:06) Chest Pa/Lat (2 View) (07/13/19 15:06) Albuterol Pre-Mix Nebs (Rt) (Proventil (07/13/19 15:06) Svn Small Volume Nebulizer (07/13/19 15:06) Vital Signs/I&O Capillary Refill : Less Than 3 Seconds Blood Pressure Mean: 98 Progress Note : Progress Note Patient was seen and examined. Thorough workup was pursued. There was no sign of infection. CRP, WBC, and temperature were all normal. Chest x-ray showed no sign of pathology. A trial of an albuterol nebulized treatment was adm inistered. Patient stated she was still symptomatic with feeling short of breath. Although patient has the perception of shortness of breath, she is actually moving air quite well on exam and has stable oxygen saturations in the upper 90s with relaxed breathing. She is therapeutic on her INR. Without other evidence of DVT or pulmonary embolism such as hypoxia or tachycardia there is no indication to pursue further workup. Additionally, she has a therapeutic INR. I communicated findings with the patient and her . I reassured them of her normal workup today. I advised talking with the primary care provider further about the facial swelling and numbness as well as her desire to be screened for Liu's syndrome. I suspect the facial symptoms are due to fleming facies from frequent steroid use and abnormal sensation due to Botox. See discharge instructions for further discussion. ECG Initial ECG Impression Date: Jul 13, 2019 Initial ECG Impression Time: 15:20 Initial ECG Rate: 74 Initial ECG Rhythm: Normal Sinus Initial ECG Intervals: Normal Initial ECG Impression: Normal Comment Normal sinus rhythm with no ST elevation or depression. No abnormal intervals or axis deviation. Diagnostic Imaging Diagonstic Imaging: Xray Plain Films/CT/US/NM/MRI: chest Comments Chest x-ray viewed by me and report reviewed. See report below: NAME: LAURA DOWNS [facility] REC#: [id number] PT STATUS: REG ER : 1975 PHYSICIAN: ALEXANDREA LIM MD ADMIT DATE: 07/13/19/ER Signed Date of Exam:07/13/19 CHEST PA/LAT (2 VIEW) INDICATION: Pneumonia. FINDINGS: The lungs are clear. No failure, effusion or pneumothorax. No free air beneath the diaphragms. IMPRESSION: No acute appearing abnormality. Dictated by: Dictated on workstation # [id number] Dict: 07/13/19 1550 Trans: 07/13/19 1623 [facility] [id number] Interpreted by: LUBNA ROBIN Electronically signed by: LUBNA ROBIN 07/13/19 3812 Departure Impression Primary Impression: Dyspnea Qualified Codes: R06.00 - Dyspnea, unspecified Additional Impression: Facial swelling Disposition: HOME, SELF-CARE Condition: Stable Departure-Patient Inst. Decision time for Depature: 16:34 Referrals: STAR MARTINEZ MD (PCP/Family) Primary Care Physician Patient Instructions: Shortness of Breath (Dyspnea) (DC) Add. Discharge Instructions: Continue with your prior treatments, especially the warfarin, as previously prescribed. Your lab work, EKG, chest x-ray, and vital signs were all normal today. Please follow-up with your primary care provider as soon as possible. It is possible and likely that your facial swelling and numbness is secondary to frequent steroid use and/or Botox. However, it would be prudent to discuss this further with your primary care provider. Return to the emergency room if you have worsening conditions or any other problems or concerns that require urgent attention. All discharge instructions reviewed with patient and/or family. Voiced understanding. Copy Copies To 1: STAR MARTINEZ MD, JOSHUA T MD Jul 13, 2019 16:37
[2019-07-13 16:45] VITALS: BP 116/69
--- NOTE | 2019-07-13 16:45 | NUR ---
At discharge pt reports name should be Colin not Bo. Registration notified.
== END 2019-07-13 16:48 | disposition home or self-care (01) ==
LOC: EDUNIT# 13:17 → ER 13:19
DX: R06.00 Dyspnea, unspecified (principal); R22.0 Localized swelling, mass and lump, head; I10 Essential (primary) hypertension; F41.9 Anxiety disorder, unspecified; G43.909 Migraine, unspecified, not intractable, without status migrainosus; K58.9 Irritable bowel syndrome, unspecified; M79.7 Fibromyalgia; F17.210 Nicotine dependence, cigarettes, uncomplicated; Z85.42 Personal history of malignant neoplasm of other parts of uterus; Z90.49 Acquired absence of other specified parts of digestive tract; Z86.711 Personal history of pulmonary embolism; Z79.01 Long term (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; Z88.2 Allergy status to sulfonamides; Z88.0 Allergy status to penicillin; Z88.1 Allergy status to other antibiotic agents; Z88.5 Allergy status to narcotic agent; Z88.8 Allergy status to other drugs, medicaments and biological substances; Z90.710 Acquired absence of both cervix and uterus
CPT/HCPCS: 36415; 71046; 80053; 83735; 83874; 84484; 85025; 85610; 85730; 86141; 93005; 93041

== ENCOUNTER → 2019-07-15 | Outpatient (CLI) | payer BC | LOC: LAB 13:18 | PROVIDERS: ATTEND Nurse Practitioner Family | DX: R06.09 Other forms of dyspnea (principal) | CPT/HCPCS: 36415; 85379 ==

== ENCOUNTER 2019-07-27 14:01 | Outpatient (RCR) | payer BC ==
[2019-07-23 14:00] VITALS: BP 101/78
[2019-07-23] MEDS: LACTATED RINGERS 1,000 ML IV SCH (15:32)
[2019-07-24 09:50] VITALS: BP 127/79
[2019-07-24] MEDS: cefTRIAXone FOR IV USE 1,000 MG in WATER (STERILE) FOR INJECTION 10 ML IV SCH (09:56)
[2019-07-25 09:52] VITALS: BP 116/87
[2019-07-25] MEDS: cefTRIAXone FOR IV USE 1,000 MG in WATER (STERILE) FOR INJECTION 10 ML IV SCH (09:57)
[2019-07-26] MEDS: cefTRIAXone FOR IV USE 1,000 MG in WATER (STERILE) FOR INJECTION 10 ML IV SCH (15:55)
[2019-07-26 16:14] VITALS: BP 120/75
[~2019-07-27] VITALS: Ht 157.4 cm; Wt 84.1 kg
[2019-07-27 14:00] VITALS: BP 117/82
[~2019-07-27 14:01] MED LIST changes: +LACTATED RINGERS 1,000 ML IV ONE; +WATER (STERILE) FOR INJECTION 10 ML ONE; +cefTRIAXone 1,000 MG IV (ROCEPHIN) VIAL ONE; +cefTRIAXone FOR IV USE 1,000 MG in WATER (STERILE) FOR INJECTION 10 ML IV SCH
[2019-07-27] MEDS: cefTRIAXone FOR IV USE 1,000 MG in WATER (STERILE) FOR INJECTION 10 ML IV SCH (14:14)
[2019-07-27] MEDS: LACTATED RINGERS 1,000 ML IV SCH (14:14)
[2019-07-27] MEDS ORDERED: LACTATED RINGERS 1,000 ML IV SCH (14:15)
[2019-07-27] MEDS ORDERED: LACTATED RINGERS 1,000 ML IV ONE (14:45)
== END 2019-07-27 15:35 | disposition home or self-care (01) ==
LOC: SDC 14:01
DX: J18.9 Pneumonia, unspecified organism (principal)
CPT/HCPCS: 96360; 96361; 96374; 96375

== ENCOUNTER 2019-08-05 14:08 | Outpatient (RCR) | payer BC ==
[~2019-08-05 14:08] MED LIST changes: -LACTATED RINGERS 1,000 ML IV ONE; -WATER (STERILE) FOR INJECTION 10 ML ONE; -cefTRIAXone 1,000 MG IV (ROCEPHIN) VIAL ONE; -cefTRIAXone FOR IV USE 1,000 MG in WATER (STERILE) FOR INJECTION 10 ML IV SCH
== END 2019-11-03 | disposition home or self-care (01) ==
LOC: CARD 14:08
PROVIDERS: ATTEND Nurse Practitioner Family
DX: I95.1 Orthostatic hypotension (principal)
CPT/HCPCS: 93225; 93226

== ENCOUNTER → 2019-12-28 | Outpatient (CLI) | payer BC ==
[~2019-12-28] MED LIST changes: -WARF5TAB PO; +WARF5TAB2 PO
--- NOTE | 2019-12-28 15:10 | Diagnostic Imaging Report ---
EXAMINATION: Left ankle, three views. INDICATION: Left ankle pain. No known history of injury. COMPARISON: None available. FINDINGS: No fracture or acute osseous abnormality. Bony alignment is maintained. The ankle mortise is intact, including medial and lateral clear space. No osteochondral lesion of the talar dome. Soft tissues are unremarkable. IMPRESSION: No acute fracture or dislocation. Dictated by: Dictated on workstation # [id number]
== END ==
LOC: RAD 14:34
PROVIDERS: ATTEND Nurse Practitioner Family
DX: M25.572 Pain in left ankle and joints of left foot (principal)
CPT/HCPCS: 73610

== ENCOUNTER → 2019-12-31 | Outpatient (CLI) | payer BC ==
--- NOTE | 2019-12-31 12:35 | Diagnostic Imaging Report ---
PROCEDURE: US Venous Lower Ext Brian. TECHNIQUE: Multiple real-time grayscale images were obtained over the lower extremities in various projections, bilaterally. Additional duplex Doppler and color Doppler images were also obtained. INDICATION: Bilateral lower extremity swelling. FINDINGS: There is no evidence of right or left lower extremity DVT. Both lower extremity deep venous systems demonstrate normal compressibility with normal response to augmentation and Valsalva. No fluid collection or mass is detected. IMPRESSION: No evidence of right or left lower extremity DVT. Dictated by: Dictated on workstation # [id number]
== END ==
LOC: RAD 11:07
PROVIDERS: ATTEND Nurse Practitioner Family
DX: M79.89 Other specified soft tissue disorders (principal)
CPT/HCPCS: 93970

== ENCOUNTER 2020-01-17 13:51 | Outpatient (RCR) | payer BC ==
[2020-01-28] MEDS ORDERED: FAMO-119 PO (16:28)
== END 2020-04-16 ==
LOC: CARD 13:51
PROVIDERS: ATTEND Internal Medicine Interventional Cardiology
DX: I47.1 Supraventricular tachycardia (principal); R00.2 Palpitations

== ENCOUNTER 2020-01-28 11:48 | Emergency (ER) | payer BC ==
[~2020-01-28] VITALS: Ht 160 cm; Wt 76.0 kg
[2020-01-28] MEDS ORDERED: ASPIRIN 81 MG CHEW (CHILDREN'S ASA) PO ONE (12:00)
[2020-01-28 12:09] LABS: BASOPHILS % (AUTO) 0 % (0-10); EOSINOPHILS # (AUTO) 0.1 10^3/uL (0.0-0.3); EOSINOPHILS % (AUTO) 1 % (0-10); HEMATOCRIT 43 % (35-52); LYMPHOCYTES % (AUTO) 26 % (12-44); MEAN CORPUSCULAR HEMOGLOBIN 32 PG (25-34); MEAN CORPUSCULAR HGB CONC 35 G/DL (32-36); MEAN CORPUSCULAR VOLUME 92 FL (80-99); MEAN PLATELET VOLUME 8.9 FL (7.4-10.4); MONOCYTES # (AUTO) 0.8 X 10^3 (0.0-1.0); MONOCYTES % (AUTO) 7 % (0-12); NEUTROPHILS # (AUTO) 7.5 X 10^3 (1.8-7.8); NEUTROPHILS % (AUTO) 66 % (42-75); PLATELET COUNT 333 10^3/uL (130-400); RED CELL DISTRIBUTION WIDTH 12.7 % (10.0-14.5); WHITE BLOOD COUNT 11.4 10^3/uL (4.3-11.0)
--- OUTSIDE RECORDS SUMMARY | 2020-01-28 12:11 | XMS REPORT | Clinical Summary ---
Author Author [facility] Organization [facility] Address Unknown Phone Unavailable Care Team Providers Care Supervisor Byproducts Name Role Phone Ariana Goode RN Unavailable Unavailable Khang Valdivia MD Unavailable Unavailable Felix Collier MD 3 Source Comments Some departments are not documenting in the electronic medical record. If you d o not see the information that you expected, contact Release of Information in [facility] [employer] Information Management department at [phone] for further assistan ce in locating additional records.[facility] Allergies Comments Active Allergy Reactions Severity Noted Date hypertension Nitrofurantoin SHORTNESS OF Medium 06/05/2015 Monohyd/M-Cryst BREATH, PALPITATIONS, SEE COMMENTS same with colymycin Neomycin BLISTERS High 05/02/2015 throat swells hives Sulfa (Sulfonamide SEE COMMENTS Low 05/02/2015 Antibiotics) swelling of the throat Rivaroxaban SEE COMMENTS Low 05/02/2015 Medications End Date Status Medication Sig Dispensed Refills Start Date Active cloNIDine HCl (CATAPRESS) Take 0.1 mg 0 0.1 mg tablet by mouth twice daily. Active nebivolol (BYSTOLIC) 10 Take 10 mg by 0 mg tablet mouth daily. 5mg afternoon Active acetaZOLAMIDE (DIAMOX) Take 150 mg 0 250 mg tablet by mouth daily. Active warfarin (COUMADIN) 10 mg Take by 0 tablet mouth. 7.5 mg five days, and 2 mg 2 days Active HYDROcodone-acetaminophen Take 1 Tab by 0 (+) (LORTAB, NORCO) mouth every 6 10-325 mg tablet hours as needed for Pain Active hydrOXYzine (VISTARIL) 25 Take 25 mg by 0 mg capsule mouth twice daily. Active CYCLOBENZAPRINE HCL Take 5 mg by 0 (FLEXERIL PO) mouth daily. Active cholestyramine/aspartame Take 1 Packet 0 4 gram packet by mouth twice daily. 1/2 Scoop x 1 daily Active enoxaparin (LOVENOX) 100 Inject 130 0 mg syrg mg/kg into area(s) as directed once. Active RINGERS SOLUTION,LACTATED Administer 0 (LACTATED RINGERS IV) through vein. Rocephin 3x's weekly Active pregabalin (LYRICA) 75 mg Take 1 Cap by 60 Cap 3 capsule mouth twice 5 daily. Active CEFUROXIME AXETIL (CEFTIN Take by 0 PO) mouth twice daily. Active Problems Problem Noted Date POTS (postural orthostatic tachycardia syndrome) 03/2015 Choriocarcinoma 05/02/2015 DVT (deep venous thrombosis) 05/02/2015 Pulmonary embolism 05/02/2015 Overview: 06-05-15 First heme clinic visit. Hx a s follows: 2012 had hysterectomy then developed small PE. Rxd with Love nox and warfarin. F/U CTA showed resolution of prior PE with ? small PE in subsegmental posterior branch in the right lower lobe. Early 2014 warfarin DC'd and patient pl aced on Xarelto with bleeding complications. Developed POTS (postura l orthostatic tachycardia syndrome) with completely negative cardiac evalua tion in [place], [place]. Developed Strep with PICC line placement, PICC carmona bsequently removed. Pt resumed warfarin and is convinced her POTS symp toms resolved with resumption of warfarin. 10-21-14 CTA negative. Pt stat es she had hypercoagulable labs done in [place] after being off warfarin for 4 weeks but we have no results. This was earlier this year. I suggeste d review of those labs and decision about her need for anticoagulation at a . Discussed neuro review for her spells of swooning which again she virginia eves are relieved by warfarin. Pseudotumor cerebri 05/02/2015 Interstitial cystitis 05/02/2015 Chronic fatigue 05/02/2015 Myalgia 05/02/2015 Family History Medical History Relation Name Comments Stroke Father Cancer-Breast Maternal Aunt Arthritis-rheumatoid Maternal Grandmother Cancer-Thyroid Maternal Grandmother Diabetes Maternal Grandmother High Cholesterol Maternal Grandmother Stroke Maternal Grandmother Cancer Mother Hypertension Mother Relation Name Status Comments Father Maternal Aunt Maternal Grandmother Mother Alive Social History Date Tobacco Use Types Packs/Day Years Used Current Every Day Smoker Smokeless Tobacco: Never Used Drinks/Week oz/Week Comments Alcohol Use 0 Standard drinks or equivalent 0.0 No Sex Assigned at Date Recorded Not on file Industry Job Start Date Occupation Not on file Not on file Not on file Travel End Travel History Travel Start No recent travel history available. Last Filed Vital Signs Reading Time Taken Comments Vital Sign 109/72 06/05/2015 9:32 AM [employer] Blood Pressure 72 06/05/2015 9:32 AM [employer] Pulse 36.8 C (98.2 F) 06/05/2015 9:32 AM [employer] Temperature 22 06/05/2015 9:32 AM [employer] Respiratory Rate 98% 06/05/2015 9:32 AM [employer] Oxygen Saturation - - Inhaled Oxygen Concentration 84.7 kg (186 lb 12.8 oz) 06/05/2015 9:32 AM [employer] Weight 160 cm (5' 2.99") 06/05/2015 9:32 AM [employer] Height 33.1 06/05/2015 9:32 AM [employer] Body Mass Index Plan of Treatment Health Maintenance Due Date Last Done Comments HIV SCREENING 1992 DTAP/TDAP VACCINES (1 - 1995 Tdap) HEPATITIS C SCREENING 1995 PHYSICAL (COMPREHENSIVE) 1995 EXAM CERVICAL CANCER SCREENING 1998 BREAST CANCER SCREENING 2017 INFLUENZA VACCINE 03/23/2020 Results Not on filefrom Last 3 Months Insurance Type Payer Benefit Subscriber ID Effective Phone Address Plan / Dates Group PPO BCBS [facility] xxxxxxxxxxxx [id number] PREF CARE resent [id number] Advance Directives Patient Optician Manager Explanation Type Date Recorded Advance 04/07/2015 12:51 PM Directive/DPOA
--- OUTSIDE RECORDS SUMMARY | 2020-01-28 12:19 | XMS REPORT ---
Author Author Heydi Candelario Doctor Organization [facility] Address Unknown Phone Unavailable Care Team Providers Care Consumer Studies Professor Name Role Phone Migration, Doctor Unavailable Unavailable PROBLEMS Type Condition ICD9-CM Code [id number] Code Onset Dates Condition S tatus SNOMED Code Problem Chronic pain syndrome G89.4 Active 240259736 Problem Sore throat J02.9 Active 67084013 3 Problem Choriocarcinoma C58 Active 1881 50131 Problem [facility] 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 Z79.01 Active 003182630 Problem History of venous thromboembolism V12.51 Active 156295358 Problem Cellulitis of unspecified part of limb L03.119 Active 278471173 Problem Gastroesophageal reflux disease without esophagitis K21.9 Active 348411013 Problem History of pulmonary embolism Z86.711 Active 744952838 Problem Pseudotumor cerebri G93.2 Active 34818418 Problem History of DVT (deep vein thrombosis) Z86.718 Active 713755671 ALLERGIES No Information ENCOUNTERS Encounter Location Date Diagnosis [place] [address] 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 [id number] [address] [place] [address] Apr, Cellulitis of unspecified pa rt of limb L03.119 ; Allergic contact dermatitis due to adhesives L23.1 and Chronic pain syndrome G89.4 [facility] [address] [facility] [id number] [address] [place] [address] Apr, [place] [address] [facility] [id number] [address] [place] [address] Apr, [facility] 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.01 ; Cellulitis of unspecified part of limb L03.119 ; Chronic pain syndrome G89.4 and Anxiety F41.9 [place] [address] [address] [place] [id number] [address] [place] [address] 16 Apr, 2015 [place] [address] [place] [id number] [place] [address] Apr, [place] [address] [address] Mar, [place] [address] [place] [id number] [place] [address] Mar, [place] [address] [address] Mar, Sore throat J02.9 ; Gastroes ophageal reflux disease without esophagitis K21.9 ; Pseudotumor cerebri G93.2 ; Chronic pain syndrome G89.4 ; Choriocarcinoma C58 ; History of pulmonary embolism Z86.711 ; History of DVT (deep vein thrombosis) Z86.718 ; Anxiety F41.9 and Tachycardia R00.0 [place] [address] [address] Feb, Anxiety 300.00 and Chronic p ain 338.29 [place] [address] [place] [id number] [address] [place] [address] Feb, [place] [id number] [place] [address] Feb, [place] [address] [place] [id number] [place] [address] Jan, [facility] 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 therapy V58.61 and Dysuria 788.1 [place] [address] [address] [place] [id number] [address] [place] [address] Jan, Dysuria 788.1 [place] [address] [place] [id number] [place] [address] Jan, Anxiety 300.00 and Chronic p ain 338.29 [place] [address] [address] Jan, [facility] [address] [address] Jan, [place] [address] [address] Jan, [place] [address] [address] Dec, Weakness 780.79 [place] [address] [address] 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, 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 [place] [address] [address] Dec, Palpitations 785.1 ; Tremor 781.0 ; Weakness 780.79 ; M[facility] 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 therapy V58.61 and Yeast vaginitis 112.1 [place] [address] [address] Dec, [place] [address] [address] Dec, Cervicalgia 723.1 ; Tachycar yoseph 785.0 ; Pseudotumor cerebri 348.2 and History of venous thromboembolism V12.51 [place] [address] [address] [place] [id number] [address] [place] [address] Nov, [place] [address] [address] Nov, [place] [address] [address] Nov, Tachycardia 785.0 ; Pseudotu mor cerebri 348.2 ; Anxiety 300.00 and History of venous thromboembolism V12.51 [facility] [address] [id number] [address] [place] [address], [place] [address] Nov, [facility] [address] [id number] [address] [place] [address], [place] [address] 18 Nov, 2014 [facility] [address] [id number] [address] [place] [address], [place] [address] 16 Nov, 2014 [facility] [address] [id number] [address] [place] [address], [place] [address] Nov, [facility] [address] [id number] [address] [place] [address], [place] [address] Nov, [facility] [address] [id number] [address] [place] [address], [place] [address] Nov, [facility] [address] [id number] [address] [place] [address], [place] [address] Nov, [facility] [address] [id number] [address] [place] [address] October, [facility] [address] [id number] [address] [place] [address] October, [facility] [address] [id number] [address] [place] [address] October, Pain in thoracic spine 724.1 and Tachycardia 785.0 [facility] [address] [id number] [address] [place] [address] October, [facility] [address] [id number] [address] [place] [address] October, [facility] [address] [id number] [address] [place] [address] Sep, [facility] [address] [id number] [address] [place] [address] Sep, [facility] [address] [id number] [address] [place] [address] Aug, [facility] [address] [id number] [address] [place] [address], [place] [address] Aug, [facility] [address] [id number] [address] [place] [address], [place] [address] Aug, [facility] [address] [id number] [address] [place] [address], [place] [address] 17 Aug, 2014 [facility] [address] [id number] [address] [place] [address], [place] [address] Aug, [facility] [address] [id number] [address] [place] [address], [place] [address] 16 Aug, 2014 [facility] [address] [id number] [address] [place] [address], [place] [address] Aug, [facility] [address] [id number] [address] [place] [address], [place] [address] Aug, [facility] [address] [id number] [address] [place] [address], [place] [address] Aug, 2014 [facility] [address] [id number] [address] [place] [address], [place] [address] Aug, [facility] [address] [id number] [address] [place] [address], [place] [address] Aug, [facility] [address] [id number] [address] [place] [address], [place] [address] Aug, [facility] [address] [id number] [address] [place] [address], [place] [address] Jul, 2014 [facility] [address] [id number] [address] [place] [address], [place] [address] Jul, 2014 [facility] [address] [id number] [address] [place] [address], [place] [address] Jul, 2014 [facility] [address] [id number] [address] [place] [address], [place] [address] Jul, 2014 [facility] [address] [id number] [address] [place] [address], [place] [address] b, 2014 [facility] [address] [id number] [address] [place] [address], [place] [address] 23 Jul, 2014 [facility] [address] [id number] [address] [place] [address], [place] [address] 23 Jul, 2014 [facility] [address] [id number] [address] [place] [address], [place] [address] 23 Jul, 2014 [facility] [address] [id number] [address] [place] [address], [place] [address] 20 Jul, 2014 [facility] [address] [id number] [address] [place] [address], [place] [address] 20 Jul, 2014 [facility] [address] [id number] [address] [place] [address], [place] [address] 19 Jul, 2014 [facility] [address] [id number] [address] [place] [address], [place] [address] 19 Jul, 2014 [facility] [address] [id number] [address] [place] [address], [place] [address] 17 Jul, 2014 [facility] [address] [id number] [address] [place] [address], [place] [address] 17 Jul, 2014 [facility] [address] [id number] [address] [place] [address], [place] [address] 16 Jul, 2014 [facility] [address] [id number] [address] [place] [address], [place] [address] 16 Jul, 2014 [facility] [address] [id number] [address] [place] [address], [place] [address] 16 Jul, 2014 [facility] [address] [id number] [address] [place] [address], [place] [address] 16 Jul, 2014 [facility] [address] [id number] [address] [place] [address], [place] [address] 13 Jul, 2014 [facility] [address] [id number] [address] [place] [address], [place] [address] Jul, 2014 [facility] [address] [id number] [address] [place] [address], [place] [address] Jul, 2014 [facility] [address] [id number] [address] [place] [address], [place] [address] Jul, 2014 [facility] [address] [id number] [address] [place] [address], [place] [address] Jul, 2014 [facility] [address] [id number] [address] [place] [address], [place] [address] Jul, 2014 [facility] [address] [id number] [address] [place] [address], [place] [address] Jul, [facility] [address] [id number] [address] [place] [address], [place] [address] Jul, [facility] [address] [id number] [address] [place] [address], [place] [address] Jul, [facility] [address] [id number] [address] [place] [address], [place] [address] Jul, [facility] [address] [id number] [address] [place] [address], [place] [address] Jul, [facility] [address] [id number] [address] [place] [address], [place] [address] Jul, [facility] [address] [id number] [address] [place] [address], [place] [address] Jun, [facility] [address] [id number] [address] [place] [address], [place] [address] Jun, [facility] [address] [id number] [address] [place] [address], [place] [address] Jun, [facility] [address] [id number] [address] [place] [address], [place] [address] Jun, [facility] [address] [id number] [address] [place] [address], [place] [address] Jun, [facility] [address] [id number] [address] [place] [address], [place] [address] Jun, [facility] [address] [id number] [address] [place] [address], [place] [address] Jun, [facility] [address] [id number] [address] [place] [address], [place] [address] Jun, [facility] [address] [id number] [address] [place] [address], [place] [address] Jun, [facility] [address] [id number] [address] [place] [address], [place] [address] Jun, [facility] [address] [id number] [address] [place] [address], [place] [address] Jun, [facility] [address] [id number] [address] [place] [address], [place] [address] Jun, [facility] [address] [id number] [address] [place] [address], [place] [address] Jun, [facility] [address] [id number] [address] [place] [address], [place] [address] Jun, [facility] [address] [id number] [address] [place] [address], [place] [address] Jun, [facility] [address] [id number] [address] [place] [address], [place] [address] Jun, [facility] [address] [id number] [address] [place] [address], [place] [address] Jun, [facility] [address] [id number] [address] [place] [address], [place] [address] Jun, [facility] [address] [id number] [address] [place] [address], [place] [address] Jun, [facility] [address] [id number] [address] [place] [address], [place] [address] Jun, [facility] [address] [id number] [address] [place] [address], [place] [address] May, [facility] [address] [id number] [address] [place] [address], [place] [address] May, [facility] [address] [id number] [address] [place] [address], [place] [address] May, [facility] [address] [id number] [address] [place] [address], [place] [address] May, [facility] [address] [id number] [address] [place] [address], [place] [address] May, [facility] [address] [id number] [address] [place] [address], [place] [address] May, [facility] [address] [id number] [address] [place] [address], [place] [address] May, [facility] [address] [id number] [address] [place] [address], [place] [address] May, [facility] [address] [id number] [address] [place] [address], [place] [address] May, [facility] [address] [id number] [address] [place] [address], [place] [address] May, [facility] [address] [id number] [address] [place] [address], [place] [address] May, [facility] [address] [id number] [address] [place] [address], [place] [address] 18 May, 2014 [facility] [address] [id number] [address] [place] [address], [place] [address] 18 May, 2014 [facility] [address] [id number] [address] [place] [address], [place] [address] 17 May, 2014 [facility] [address] [id number] [address] [place] [address], [place] [address] 16 May, 2014 [facility] [address] [id number] [address] [place] [address], [place] [address] 16 May, 2014 [facility] [address] [id number] [address] [place] [address], [place] [address] 15 May, 2014 [facility] [address] [id number] [address] [place] [address], [place] [address] 15 May, 2014 [facility] [address] [id number] [address] [place] [address], [place] [address] May, [facility] [address] [id number] [address] [place] [address], [place] [address] May, [facility] [address] [id number] [address] [place] [address], [place] [address] May, [facility] [address] [id number] [address] [place] [address], [place] [address] May, [facility] [address] [id number] [address] [place] [address], [place] [address] May, [facility] [address] [id number] [address] [place] [address], [place] [address] May, [facility] [address] [id number] [address] [place] [address], [place] [address] May, [facility] [address] [id number] [address] [place] [address], [place] [address] May, [facility] [address] [id number] [address] [place] [address], [place] [address] May, [facility] [address] [id number] [address] [place] [address], [place] [address] May, [facility] [address] [id number] [address] [place] [address], [place] [address] May, [facility] [address] [id number] [address] [place] [address], [place] [address] May, [facility] [address] [id number] [address] [place] [address], [place] [address] May, [facility] [address] [id number] [address] [place] [address], [place] [address] May, [facility] [address] [id number] [address] [place] [address], [place] [address] May, [facility] [address] [id number] [address] [place] [address], [place] [address] May, [facility] [address] [id number] [address] [place] [address], [place] [address] Apr, [facility] [address] [id number] [address] [place] [address], [place] [address] Apr, [facility] [address] [id number] [address] [place] [address], [place] [address] Apr, [facility] [address] [id number] [address] [place] [address], [place] [address] Apr, [facility] [address] [id number] [address] [place] [address], [place] [address] Apr, [facility] [address] [id number] [address] [place] [address], [place] [address] Apr, [facility] [address] [id number] [address] [place] [address], [place] [address] Apr, [facility] [address] [id number] [address] [place] [address], [place] [address] Apr, [facility] [address] [id number] [address] [place] [address], [place] [address] Apr, [facility] [address] [id number] [address] [place] [address], [place] [address] Apr, [facility] [address] [id number] [address] [place] [address], [place] [address] Mar, [facility] [address] [id number] [address] [place] [address], [place] [address] Mar, [facility] [address] [id number] [address] [place] [address], [place] [address] Mar, [facility] [address] [id number] [address] [place] [address], [place] [address] 31 Mar, 2013 [facility] [address] [id number] [address] [place] [address], [place] [address] 30 Mar, 2013 [facility] [address] [id number] [address] [place] [address], [place] [address] 30 Mar, 2014 [facility] [address] [id number] [address] [place] [address], [place] [address] Mar, 2013 [facility] [address] [id number] [address] [place] [address], [place] [address] 17 Mar, 2013 [facility] [address] [id number] [address] [place] [address], [place] [address] 15 Mar, 2014 [facility] [address] [id number] [address] [place] [address] 15 Mar, 2014 [facility] [address] [id number] [address] [place] [address], [place] [address] 15 Mar, 2014 [facility] [address] [id number] [address] [place] [id number] Mar, [facility] [address] [id number] [address] [place] [address], [place] [address] Mar, [facility] [address] [id number] [address] [place] [id number] Mar, [facility] [address] [id number] [address] [place] [id number] Mar, [facility] [address] [id number] [address] [place] [id number] Mar, 2013 [facility] [address] [id number] [address] [place] [address], [place] [address] Mar, [facility] [address] [id number] [address] [place] [id number] Mar, [facility] [address] [id number] [address] [place] [id number] Mar, 2013 [facility] [address] [id number] [address] [place] [address], [place] [address] 02 Mar, 2013 [facility] [address] [id number] [address] [place] [address], [place] [address] 05 Sep, 2013 [facility] [address] [id number] [address] [place] [address], [place] [address] 05 Sep, 2013 [facility] [address] [id number] [address] [place] [address], [place] [address] 04 Sep, 2013 [facility] [address] [id number] [address] [place] [address], [place] [address] 04 Sep, 2013 [facility] [address] [id number] [address] [place] [address], [place] [address] 03 Feb, 2013 [facility] [address] [id number] [address] [place] [address], [place] [address] Feb, 2013 [facility] [address] [id number] [address] [place] [address], [place] [address] Feb, 2013 [facility] [address] [id number] [address] [place] [address], [place] [address] Feb, 2013 [facility] [address] [id number] [address] [place] [address], [place] [address] Feb, 2013 [facility] [address] [id number] [address] [place] [address], [place] [address] Feb, 2013 [facility] [address] [id number] [address] [place] [address], [place] [address] Jan, [facility] [address] [id number] [address] [place] [address], [place] [address] Jan, [facility] [address] [id number] [address] [place] [address], [place] [address] Jan, [facility] [address] [id number] [address] [place] [address], [place] [address] Jan, [facility] [address] [id number] [address] [place] [address], [place] [address] Jan, [facility] [address] [id number] [address] [place] [address], [place] [address] Jan, [facility] [address] [id number] [address] [place] [address], [place] [address] Jan, [facility] [address] [id number] [address] [place] [address], [place] [address] Jan, [facility] [address] [id number] [address] [place] [address], [place] [address] Jan, [facility] [address] [id number] [address] [place] [address], [place] [address] Jan, [facility] [address] [id number] [address] [place] [address], [place] [address] Jan, [facility] [address] [id number] [address] [place] [address], [place] [address] Jan, [facility] [address] [id number] [address] [place] [address], [place] [address] Dec, [facility] [address] [id number] [address] [place] [address], [place] [address] Dec, [facility] [address] [id number] [address] [place] [address], [place] [address] Dec, [facility] [address] [id number] [address] [place] [address], [place] [address] Dec, [facility] [address] [id number] [address] [place] [address], [place] [address] Dec, [facility] [address] [id number] [address] [place] [address], [place] [address] Dec, [facility] [address] [id number] [address] [place] [address], [place] [address] Dec, [facility] [address] [id number] [address] [place] [address], [place] [address] Dec, [facility] [address] [id number] [address] [place] [address], [place] [address] Dec, [facility] [address] [id number] [address] [place] [address], [place] [address] Dec, [facility] [address] [id number] [address] [place] [address], [place] [address] Dec, [facility] [address] [id number] [address] [place] [address], [place] [address] Dec, [facility] [address] [id number] [address] [place] [address], [place] [address] Nov, [facility] [address] [id number] [address] [place] [address], [place] [address] Nov, [facility] [address] [id number] [address] [place] [address], [place] [address] Nov, [facility] [address] [id number] [address] [place] [address], [place] [address] Nov, [facility] [address] [id number] [address] [place] [address], [place] [address] Nov, [facility] [address] [id number] [address] [place] [address], [place] [address] Nov, [facility] [address] [id number] [address] [place] [address], [place] [address] Nov, [facility] [address] [id number] [address] [place] [address], [place] [address] Nov, [facility] [address] [id number] [address] [place] [address] Nov, [facility] [address] [id number] [address] [place] [address], [place] [address] Nov, [facility] [address] [id number] [address] [place] [address], [place] [address] Nov, [facility] [address] [id number] [address] [place] [address], [place] [address] Nov, [facility] [address] [id number] [address] [place] [address], [place] [address] Nov, [facility] [address] [id number] [address] [place] [address], [place] [address] Nov, [facility] [address] [id number] [address] [place] [address], [place] [address] October, [facility] [address] [id number] [address] [place] [address], [place] [address] October, [facility] [address] [id number] [address] [place] [address], [place] [address] October, [facility] [address] [id number] [address] [place] [address], [place] [address] October, [facility] [address] [id number] [address] [place] [address], [place] [address] October, [facility] [address] [id number] [address] [place] [address], [place] [address] October, [facility] [address] [id number] [address] [place] [address], [place] [address] October, [facility] [address] [id number] [address] [place] [address], [place] [address] October, [facility] [address] [id number] [address] [place] [address], [place] [address] October, [facility] [address] [id number] [address] [place] [address], [place] [address] October, [facility] [address] [id number] [address] [place] [address], [place] [address] October, [facility] [address] [id number] [address] [place] [address], [place] [address] October, [facility] [address] [id number] [address] [place] [address], [place] [address] Sep, [facility] [address] [id number] [address] [place] [address], [place] [address] Sep, [facility] [address] [id number] [facility] [place] [address] Sep, [facility] [address] [id number] [address] [place] [address], [place] [address] Sep, [facility] [address] [id number] [address] [place] [address], [place] [address] Sep, [facility] [address] [id number] [address] [place] [address], [place] [address] Sep, [facility] [address] [id number] [address] [place] [address], [place] [address] Aug, [facility] [address] [id number] [address] [place] [address], [place] [address] Aug, [facility] [address] [id number] [address] [place] [address], [place] [address] Aug, [facility] [address] [id number] [address] [place] [address], [place] [address] Aug, [facility] [address] [id number] [address] [place] [address], [place] [address] Aug, [facility] [address] [id number] [address] [place] [address], [place] [address] Aug, [facility] [address] [id number] [address] [place] [address], [place] [address] Jul, [facility] [address] [id number] [address] [place] [address], [place] [address] Jul, [facility] [address] [id number] [address] [place] [address], [place] [address] Jul, [facility] [address] [id number] [address] [place] [address], [place] [address] Jul, [facility] [address] [id number] [address] [place] [address], [place] [address] Jul, [facility] [address] [id number] [address] [place] [address], [place] [address] 13 Jul, 2013 [facility] [address] [id number] [address] [place] [address], [place] [address] Jul, [facility] [address] [id number] [address] [place] [address], [place] [address] Jul, [facility] [address] [id number] [address] [place] [address], [place] [address] Jul, [facility] [address] [id number] [address] [place] [address], [place] [address] Jul, [facility] [address] [id number] [address] [place] [address], [place] [address] Jun, [facility] [address] [id number] [address] [place] [address], [place] [address] Jun, [facility] [address] [id number] [address] [place] [address], [place] [address] Jun, [facility] [address] [id number] [address] [place] [address], [place] [address] Jun, [facility] [address] [id number] [address] [place] [address], [place] [address] Jun, [facility] [address] [id number] [address] [place] [address], [place] [address] Jun, [facility] [address] [id number] [address] [place] [address], [place] [address] Jun, [facility] [address] [id number] [address] [place] [address], [place] [address] Jun, [facility] [address] [id number] [address] [place] [address], [place] [address] May, [facility] [address] [id number] [address] [place] [address], [place] [address] May, [facility] [address] [id number] [address] [place] [address] [address] May, [facility] [address] [id number] [address] [place] [address], [place] [address] May, [facility] [address] [id number] [address] [place] [address], [place] [address] May, [facility] [address] [id number] [address] [place] [address], [place] [address] May, [facility] [address] [id number] [address] [place] [address], [place] [address] May, [facility] [address] [id number] [address] [place] [address], [place] [address] May, [facility] [address] [id number] [address] [place] [address], [place] [address] Apr, [facility] [address] [id number] [address] [place] [address], [place] [address] Apr, [facility] [address] [id number] [address] [place] [address] Apr, [facility] [address] [id number] [address] [place] [address] Apr, [facility] [address] [id number] [address] [place] [address] Apr, [facility] [address] [id number] [address] [place] [address] Apr, [facility] [address] [id number] [address] [place] [address] Mar, [facility] [address] [id number] [address] [place] [address] Mar, [facility] [address] [id number] [address] [place] [address] Mar, [facility] [address] [id number] [address] [place] [address] Mar, [facility] [address] [id number] [address] [place] [address], [place] [address] Mar, [facility] [address] [id number] [address] [place] [address], [place] [address] Mar, [facility] [address] [id number] [address] [place] [address], [place] [address] Mar, [facility] [address] [id number] [address] [place] [address], [place] [address] 30 Feb, 2013 [facility] [address] [id number] [address] [place] [address], [place] [address] 30 Feb, 2013 [facility] [address] [id number] [address] [place] [address], [place] [address] 27 Feb, 2013 [facility] [address] [id number] [address] [place] [address], [place] [address] Feb, [facility] [address] [id number] [address] [place] [address], [place] [address] Feb, [facility] [address] [id number] [address] [place] [address], [place] [address] Feb, [facility] [address] [id number] [address] [place] [address], [place] [address] Jan, [facility] [address] [id number] [address] [place] [address], [place] [address] Jan, [facility] [address] [id number] [address] [place] [address], [place] [address] Jan, [facility] [address] [id number] [address] [place] [address], [place] [address] Jan, [facility] [address] [id number] [address] [place] [address], [place] [address] Jan, [facility] [address] [id number] [address] [place] [address], [place] [address] Jan, [facility] [address] [id number] [address] [place] [address], [place] [address] Jan, [facility] [address] [id number] [address] [place] [address], [place] [address] Jan, [facility] [address] [id number] [address] [place] [address], [place] [address] Jan, [facility] [address] [id number] [address] [place] [address], [place] [address] Dec, [facility] [address] [id number] [address] [place] [address], [place] [address] Dec, [facility] [address] [id number] [address] [place] [address], [place] [address] Dec, [facility] [address] [id number] [address] [place] [address], [place] [address] Dec, [facility] [address] [id number] [address] [place] [address], [place] [address] Dec, [facility] [address] [id number] [address] [place] [address], [place] [address] Dec, [facility] [address] [id number] [address] [place] [address], [place] [address] Dec, [facility] [address] [id number] [address] [place] [address], [place] [address] Dec, [facility] [address] [id number] [address] [place] [address], [place] [address] Dec, [facility] [address] [id number] [address] [place] [address], [place] [address] Dec, [facility] [address] [id number] [address] [place] [address], [place] [address] Dec, [facility] [address] [id number] [address] [place] [address], [place] [address] Dec, [facility] [address] [id number] [address] [place] [address], [place] [address] Dec, [facility] [address] [id number] [address] [place] [address], [place] [address] Nov, [facility] [address] [id number] [address] [place] [address], [place] [address] Nov, [facility] [address] [id number] [address] [place] [address], [place] [address] Nov, [facility] [address] [id number] [address] [place] [address], [place] [address] Nov, [facility] [address] [id number] [address] [place] [address], [place] [address] October, [facility] [address] [id number] [address] [place] [address], [place] [address] October, [facility] [address] [id number] [address] [place] [address], [place] [address] October, [facility] [address] [id number] [address] [place] [address], [place] [address] October, [facility] [address] [id number] [address] [place] [address], [place] [address] October, [facility] [address] [id number] [address] [place] [address], [place] [address] October, [facility] [address] [id number] [address] [place] [address], [place] [address] 30 Sep, 2012 [facility] [address] [id number] [address] [place] [address], [place] [address] 29 Sep, 2012 [facility] [address] [id number] [address] [place] [address], [place] [address] 27 Sep, 2012 [facility] [address] [id number] [address] [place] [address], [place] [address] 23 Sep, 2012 [facility] [address] [id number] [address] [place] [address], [place] [address] Sep, [facility] [address] [id number] [address] [place] [address], [place] [address] 16 Sep, 2012 [facility] [address] [id number] [facility] [place] [address] 12 Sep, 2012 [facility] [address] [id number] [address] [place] [address], [place] [address] Sep, [facility] [address] [id number] [address] [place] [address], [place] [address] Sep, [facility] [address] [id number] [address] [place] [address], [place] [address] Sep, [facility] [address] [id number] [address] [place] [address], [place] [address] Sep, [facility] [address] [id number] [address] [place] [address], [place] [address] Aug, [facility] [address] [id number] [address] [place] [address], [place] [address] Aug, [facility] [address] [id number] [address] [place] [address], [place] [address] 25 Aug, 2012 [facility] [address] [id number] [address] [place] [address], [place] [address] 21 Aug, 2012 [facility] [address] [id number] [address] [place] [address], [place] [address] 19 Aug, 2012 [facility] [address] [id number] [address] [place] [address], [place] [address] 18 Aug, 2012 [facility] [address] [id number] [address] [place] [address], [place] [address] 17 Aug, 2012 [facility] [address] [id number] [address] [place] [address], [place] [address] 15 Aug, 2012 [facility] [address] [id number] [address] [place] [address], [place] [address] 15 Aug, 2012 [facility] [address] [id number] [address] [place] [address], [place] [address] 11 Aug, 2012 [facility] [address] [id number] [address] [place] [address], [place] [address] Aug, [facility] [address] [id number] [address] [place] [address], [place] [address] Aug, [facility] [address] [id number] [address] [place] [address], [place] [address] Jul, [facility] [address] [id number] [address] [place] [address], [place] [address] Jul, [facility] [address] [id number] [address] [place] [address], [place] [address] Jul, [facility] [address] [id number] [address] [place] [address], [place] [address] Jul, [facility] [address] [id number] [address] [place] [address], [place] [address] Jul, [facility] [address] [id number] [address] [place] [address], [place] [address] Jul, [facility] [address] [id number] [address] [place] [address], [place] [address] Jul, [facility] [address] [id number] [address] [place] [address], [place] [address] Jul, [facility] [address] [id number] [address] [place] [address], [place] [address] Jul, [facility] [address] [id number] [address] [place] [address] Jul, [facility] [address] [id number] [address] [place] [address] May, [facility] [address] [id number] [place] [id number] May, [facility] [address] [id number] [address] [place] [address] May, [facility] [address] [id number] [address] [place] [address], [place] [address] 14 May, 2012 [facility] [address] [id number] [address] [place] [address], [place] [address] May, [facility] [address] [id number] [address] [place] [address], [place] [address] Apr, [facility] [address] [id number] [place] [id number] Apr, [facility] [address] [facility] [id number] [address] [place] [address], [place] [address] Apr, [facility] [address] [facility] [id number] [address] [place] [address], [place] [address] Mar, [facility] [address] [id number] [place] [id number] Mar, [facility] [address] [facility] [id number] [address] [place] [address], [place] [address] Mar, [facility] [address] [id number] [id number] Feb, [facility] [address] [facility] [facility] [id number] [address] [place] [address], [place] [address] Feb, [facility] [address] [facility] [id number] [address] [place] [address], [place] [address] Feb, [facility] [address] [id number] [place] [id number] Feb, [facility] [address] [id number] [place] [id number] Feb, [facility] [address] [id number] [place] [id number] Jan, [facility] [address] [id number] [address] [place] [address], [place] [address] Jan, [facility] [address] [id number] [place] [id number] Jan, [facility] [address] [id number] [place] [id number] Jan, [facility] [address] [id number] [place] [id number] Jan, [facility] [address] [id number] [address] [place] [address], [place] [address] Jan, [facility] [address] [id number] [address] [place] [address], [place] [address] Jan, [facility] [address] [facility] [id number] [address] [place] [address], [place] [address] Aug, [facility] [address] [facility] [id number] [place] [id number] Aug, [facility] [address] [facility] [id number] [address] [place] [address], [place] [address] Jul, [facility] [address] [facility] [id number] [address] [place] [address], [place] [address] Jul, [facility] [address] [facility] [id number] [address] [place] [address], [place] [address] Jul, [facility] [address] [facility] [id number] [place] [id number] Jul, [facility] [address] [id number] [address] [place] [address], [place] [address] Jul, [facility] [address] [facility] [id number] [place] [id number] Jul, [facility] [address] [facility] [id number] [address] [place] [address], [place] [address] Jul, [facility] [address] [id number] [place] [id number] Jul, [facility] [address] [id number] [place] [id number] Jul, [facility] [address] [id number] [place] [id number] Jul, [facility] [address] [facility] [id number] [address] [place] [address], [place] [address] May, [facility] [address] [facility] [id number] [address] [place] [address], [place] [address] May, [facility] [address] [id number] [address] [place] [phone] May, [facility] [address] [id number] [address] [place] [id number] Apr, [facility] [address] [id number] [address] [place] [phone] Jan, [facility] [address] [id number] [address] [place] [id number] Jan, [facility] [address] [id number] [address] [place] [phone] Dec, [facility] [address] [id number] [address] [place] [phone] Dec, [facility] [address] [id number] [address] [place] [id number] 16 May, 2009 [facility] [address] [id number] [address] [place] [id number] Mar, [facility] [address] [id number] [address] [place] [id number] Mar, [facility] [address] [id number] [address] [place] [phone] Jan, IMMUNIZATIONS No Known Immunizations SOCIAL HISTORY Never Assessed REASON FOR VISIT PLAN OF CARE VITAL SIGNS MEDICATIONS Unknown Medications RESULTS No Results PROCEDURES No Known procedures INSTRUCTIONS MEDICATIONS ADMINISTERED No Known Medications MEDICAL (GENERAL) HISTORY Type Description Date Medical History obesity Medical History choriocarcinoma Stage I (nico ated with chemotherapy with MTX- completed 12/2009) Medical History pseudotumor cerebri (2009) Medical History Irritable bowel syndrome Medical History GERD (gastroesophageal reflux disease) Medical History Arthropathy Medical History History of venous thromboembolism Medical History Anxiety Medical History Tachycardia Medical History Desmated Strep B Medical History Pseudotumor cerebri Medical History Anxiety Surgical History dilatation and curettage by [place] 07/2009 Surgical History removal of choriocarcinoma by Drake wang 08/2009 Surgical History hysterectomy 06/2012
--- OUTSIDE RECORDS SUMMARY | 2020-01-28 12:19 | XMS REPORT ---
Author Author Heydi Candelario Doctor Organization [facility] Address Unknown Phone Unavailable Care Team Providers Care Dial Refinisher Name Role Phone Migration, Doctor Unavailable Unavailable PROBLEMS Type Condition ICD9-CM Code FWH90-VK Code Onset Dates Condition S tatus SNOMED Code Problem Chronic pain syndrome G89.4 Active 502708196 Problem Sore throat J02.9 Active 96600030 3 Problem Choriocarcinoma C58 Active 1881 61239 Problem [facility]CI 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 Z79.01 Active 934448494 Problem History of venous thromboembolism V12.51 Active 269974985 Problem Cellulitis of unspecified part of limb L03.119 Active 434782137 Problem Gastroesophageal reflux disease without esophagitis K21.9 Active 101419396 Problem History of pulmonary embolism Z86.711 Active 784737822 Problem Pseudotumor cerebri G93.2 Active 06474549 Problem History of DVT (deep vein thrombosis) Z86.718 Active 086666527 ALLERGIES No Information ENCOUNTERS Encounter Location Date Diagnosis [place] [address] [place] [id number] [address] [place] [address] 14 Nov, 2019 Encounter for screening labo ratory testing for COVID-19 virus Z11.59 [place] [address] [place] [id number] [address] [place] [address] Apr, 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 [id number] [address] [place] [address] Apr, [facility]CI 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.01 [place] [address] [facility] [id number] [address] [place] [address] Apr, Cellulitis of unspecified pa rt of limb L03.119 ; Allergic contact dermatitis due to adhesives L23.1 and Chronic pain syndrome G89.4 [place] [address] [address] Apr, [facility] [address] [address] Apr, [facility] 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.01 ; Cellulitis of unspecified part of limb L03.119 ; Chronic pain syndrome G89.4 and Anxiety F41.9 [place] [address] [address] Apr, [facility] [address] [address] Apr, [place] [address] [address] Mar, [place] [address] [address] Mar, [place] [address] [address] Mar, Sore throat J02.9 ; Gastroes ophageal reflux disease without esophagitis K21.9 ; Pseudotumor cerebri G93.2 ; Chronic pain syndrome G89.4 ; Choriocarcinoma C58 ; History of pulmonary embolism Z86.711 ; History of DVT (deep vein thrombosis) Z86.718 ; Anxiety F41.9 and Tachycardia R00.0 [place] [address] [place] [id number] [address] [place] [address] Feb, Anxiety 300.00 and Chronic p ain 338.29 [facility] [address] [place] [id number] [address] [place] [address] Feb, [facility] [address] [address] Feb, [facility] [address] [place] [id number] [address] [place] [address] Jan, 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 therapy V58.61 and Dysuria 788.1 [place] [address] [place] [id number] [address] [place] [address] Jan, Dysuria 788.1 [place] [address] [address] Jan, Anxiety 300.00 and Chronic p ain 338.29 [place] [address] [address] Jan, [place] [address] [address] Jan, [place] [address] [address] Jan, [place] [address] [address] Dec, Weakness 780.79 [place] [address] [address] Dec, 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 therapy V58.[address] [address] Dec, Palpitations 785.1 ; Tremor 781.0 ; Weakness 780.79 ; [facility]CI 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 therapy V58.61 and Yeast vaginitis 112.1 [place] [address] [place] [id number] [address] [place] [address] Dec, [place] [address] [address] Dec, Cervicalgia 723.1 ; Tachycar yoseph 785.0 ; Pseudotumor cerebri 348.2 and History of venous thromboembolism V12.51 [place] [address] [address] Nov, [place] [address] [place] [id number] [address] [place] [address] Nov, [place] [address] [place] [id number] [place] [address] 24 Nov, 2014 Tachycardia 785.0 ; Pseudotu mor cerebri 348.2 ; Anxiety 300.00 and History of venous thromboembolism V12.51 [facility] [address] [id number] [address] [place] [address] 19 Nov, 2014 [facility] [address] [id number] [address] [place] [address] 18 Nov, 2014 [facility] [address] [id number] [address] [place] [address] 16 Nov, 2014 [facility] [address] [id number] [address] [place] [address] Nov, [facility] [address] [facility] [id number] [address] [place] [address] Nov, [facility] [address] [facility] [id number] [address] [place] [address] Nov, [facility] [address] [id number] [address] [place] [address] Nov, [facility] [address] [facility] [id number] [address] [place] [address] October, [facility] [address] [facility] [id number] [address] [place] [address] October, [facility] [address] [facility] [id number] [address] [place] [address] October, Pain in thoracic spine 724.1 and Tachycardia 785.0 [facility] [address] [id number] [address] [place] [address] October, [facility] [address] [facility] [id number] [address] [place] [address] October, [facility] [address] [facility] [id number] [address] [place] [address] 14 Sep, 2014 [facility] [address] [facility] [id number] [address] [place] [address] Sep, [facility] [address] [id number] [address] [place] [address], [place] [address] Aug, [facility] [address] [id number] [address] [place] [address], [place] [address] Aug, [facility] [address] [id number] [address] [place] [address], [place] [address] Aug, [facility] [address] [id number] [address] [place] [address], [place] [address] Aug, [facility] [address] [id number] [address] [place] [address], [place] [address] Aug, [facility] [address] [id number] [address] [place] [address], [place] [address] Aug, [facility] [address] [id number] [address] [place] [address], [place] [address] Aug, [facility] [address] [id number] [address] [place] [address], [place] [address] Aug, [facility] [address] [id number] [address] [place] [address], [place] [address] Aug, [facility] [address] [id number] [address] [place] [address], [place] [address] Aug, [facility] [address] [id number] [address] [place] [address], [place] [address] Aug, [facility] [address] [id number] [address] [place] [address], [place] [address] Aug, [facility] [address] [id number] [address] [place] [address], [place] [address] Jul, [facility] [address] [id number] [address] [place] [address], [place] [address] Jul, [facility] [address] [id number] [address] [place] [address], [place] [address] Jul, [facility] [address] [id number] [address] [place] [address], [place] [address] 23 Jul, 2014 [facility] [address] [id number] [address] [place] [address], [place] [address] 23 Jul, 2014 [facility] [address] [id number] [address] [place] [address], [place] [address] 23 Jul, 2014 [facility] [address] [id number] [address] [place] [address], [place] [address] 23 Jul, 2014 [facility] [address] [id number] [address] [place] [address], [place] [address] 23 Jul, 2014 [facility] [address] [id number] [address] [place] [address], [place] [address] 20 Jul, 2014 [facility] [address] [id number] [address] [place] [address], [place] [address] 20 Jul, 2014 [facility] [address] [id number] [address] [place] [address] 19 Jul, 2014 [facility] [address] [id number] [address] [place] [address], [place] [address] 19 Jul, 2014 [facility] [address] [id number] [address] [place] [address] 17 Jul, 2014 [facility] [address] [id number] [address] [place] [address] 17 Jul, 2014 [facility] [address] [id number] [address] [place] [address] 16 Jul, 2014 [facility] [address] [id number] [address] [place] [address], [place] [address] 16 Jul, 2014 [facility] [address] [id number] [address] [place] [address] 16 Jul, 2014 [facility] [address] [id number] [address] [place] [address] 16 Jul, 2014 [facility] [address] [id number] [address] [place] [address], [place] [address] 13 Jul, 2014 [facility] [address] [id number] [address] [place] [address], [place] [address] Jul, 2014 [facility] [address] [id number] [address] [place] [address], [place] [address] Jul, 2014 [facility] [address] [id number] [address] [place] [address], [place] [address] Jul, 2014 [facility] [address] [id number] [address] [place] [address], [place] [address] Jul, 2014 [facility] [address] [id number] [address] [place] [address], [place] [address] Jul, [facility] [address] [id number] [address] [place] [address], [place] [address] Jul, 2014 [facility] [address] [id number] [address] [place] [address], [place] [address] Jul, [facility] [address] [id number] [address] [place] [address], [place] [address] Jul, [facility] [address] [id number] [address] [place] [address], [place] [address] Jul, [facility] [address] [id number] [address] [place] [address] Jul, [facility] [address] [id number] [address] [place] [address] Jul, [facility] [address] [id number] [address] [place] [address], [place] [address] Jun, [facility] [address] [id number] [address] [place] [address] Jun, [facility] [address] [id number] [address] [place] [address] Jun, [facility] [address] [id number] [address] [place] [address] Jun, [facility] [address] [id number] [address] [place] [address], [place] [address] Jun, [facility] [address] [id number] [address] [place] [address], [place] [address] Jun, [facility] [address] [id number] [address] [place] [address], [place] [address] Jun, [facility] [address] [id number] [address] [place] [address], [place] [address] Jun, [facility] [address] [id number] [address] [place] [address], [place] [address] Jun, [facility] [address] [id number] [address] [place] [address], [place] [address] Jun, [facility] [address] [id number] [address] [place] [address], [place] [address] Jun, [facility] [address] [id number] [address] [place] [address], [place] [address] Jun, [facility] [address] [id number] [address] [place] [address], [place] [address] Jun, [facility] [address] [id number] [address] [place] [address], [place] [address] Jun, [facility] [address] [id number] [address] [place] [address], [place] [address] Jun, [facility] [address] [id number] [address] [place] [address], [place] [address] Jun, [facility] [address] [id number] [address] [place] [address], [place] [address] Jun, [facility] [address] [id number] [address] [place] [address], [place] [address] Jun, [facility] [address] [id number] [address] [place] [address], [place] [address] Jun, [facility] [address] [id number] [address] [place] [address], [place] [address] Jun, [facility] [address] [id number] [address] [place] [address], [place] [address] May, [facility] [address] [id number] [address] [place] [address], [place] [address] May, [facility] [address] [id number] [address] [place] [address], [place] [address] May, [facility] [address] [id number] [address] [place] [address], [place] [address] May, [facility] [address] [id number] [address] [place] [address], [place] [address] May, [facility] [address] [id number] [address] [place] [address], [place] [address] May, [facility] [address] [id number] [address] [place] [address], [place] [address] May, [facility] [address] [id number] [address] [place] [address], [place] [address] May, [facility] [address] [id number] [address] [place] [address], [place] [address] May, [facility] [address] [id number] [address] [place] [address], [place] [address] May, [facility] [address] [id number] [address] [place] [address], [place] [address] May, [facility] [address] [id number] [address] [place] [address], [place] [address] 18 May, 2014 [facility] [address] [id number] [address] [place] [address], [place] [address] 18 May, 2014 [facility] [address] [id number] [address] [place] [address], [place] [address] 17 May, 2014 [facility] [address] [id number] [address] [place] [address], [place] [address] 16 May, 2014 [facility] [address] [id number] [facility] [address] 16 May, 2014 [facility] [address] [id number] [facility] [address] 15 May, 2014 [facility] [address] [id number] [address] [place] [address], [place] [address] 15 May, 2014 [facility] [address] [id number] [address] [place] [address], [place] [address] May, [facility] [address] [id number] [address] [place] [address], [place] [address] May, [facility] [address] [id number] [address] [place] [address], [place] [address] May, [facility] [address] [id number] [address] [place] [address], [place] [address] May, [facility] [address] [id number] [address] [place] [address], [place] [address] May, [facility] [address] [id number] [address] [place] [address], [place] [address] May, [facility] [address] [id number] [address] [place] [address], [place] [address] May, [facility] [address] [id number] [address] [place] [address], [place] [address] May, [facility] [address] [id number] [address] [place] [address], [place] [address] May, [facility] [address] [id number] [address] [place] [address], [place] [address] May, [facility] [address] [id number] [address] [place] [address], [place] [address] May, [facility] [address] [id number] [address] [place] [address], [place] [address] May, [facility] [address] [id number] [address] [place] [address], [place] [address] 05 May, 2014 [facility] [address] [id number] [address] [place] [address], [place] [address] May, [facility] [address] [id number] [address] [place] [address], [place] [address] May, [facility] [address] [id number] [address] [place] [address], [place] [address] May, [facility] [address] [id number] [address] [place] [address], [place] [address] Apr, [facility] [address] [id number] [address] [place] [address], [place] [address] Apr, [facility] [address] [id number] [address] [place] [address], [place] [address] Apr, [facility] [address] [id number] [address] [place] [address], [place] [address] Apr, [facility] [address] [id number] [address] [place] [address], [place] [address] Apr, [facility] [address] [id number] [address] [place] [address], [place] [address] Apr, [facility] [address] [id number] [address] [place] [address], [place] [address] Apr, [facility] [address] [id number] [address] [place] [address], [place] [address] Apr, [facility] [address] [id number] [address] [place] [address], [place] [address] Apr, [facility] [address] [id number] [address] [place] [address], [place] [address] Apr, [facility] [address] [id number] [address] [place] [address], [place] [address] Mar, [facility] [address] [id number] [address] [place] [address], [place] [address] Mar, [facility] [address] [id number] [address] [place] [address], [place] [address] 31 Mar, 2013 [facility] [address] [id number] [address] [place] [address], [place] [address] Mar, 2013 [facility] [address] [id number] [address] [place] [address], [place] [address] 30 Mar, 2014 [facility] [address] [id number] [address] [place] [address], [place] [address] 30 Mar, 2014 [facility] [address] [id number] [address] [place] [address], [place] [address] Mar, [facility] [address] [id number] [address] [place] [address], [place] [address] Mar, [facility] [address] [id number] [address] [place] [address], [place] [address] Mar, [facility] [address] [id number] [address] [place] [address], [place] [address] Mar, [facility] [address] [id number] [address] [place] [address], [place] [address] Mar, [facility] [address] [id number] [address] [place] [address], [place] [address] Mar, [facility] [address] [id number] [address] [place] [address], [place] [address] Mar, [facility] [address] [id number] [address] [place] [address], [place] [address] Mar, [facility] [address] [id number] [address] [place] [address], [place] [address] Mar, [facility] [address] [id number] [address] [place] [address], [place] [address] Mar, [facility] [address] [id number] [address] [place] [address], [place] [address] Mar, [facility] [address] [id number] [address] [place] [address] Mar, [facility] [address] [id number] [address] [place] [address], [place] [address] Mar, [facility] [address] [id number] [address] [place] [address], [place] [address] Mar, [facility] [address] [id number] [address] [place] [address], [place] [address] 05 Sep, 2013 [facility] [address] [id number] [address] [place] [address], [place] [address] 05 Sep, 2013 [facility] [address] [id number] [address] [place] [address], [place] [address] 04 Feb, 2013 [facility] [address] [id number] [address] [place] [address], [place] [address] 04 Feb, 2013 [facility] [address] [id number] [address] [place] [address], [place] [address] Feb, 2013 [facility] [address] [id number] [address] [place] [address], [place] [address] Feb, 2013 [facility] [address] [id number] [address] [place] [address], [place] [address] Feb, 2013 [facility] [address] [id number] [address] [place] [address], [place] [address] Feb, 2013 [facility] [address] [id number] [address] [place] [address], [place] [address] Feb, 2013 [facility] [address] [id number] [address] [place] [address], [place] [address] Feb, 2013 [facility] [address] [id number] [address] [place] [address], [place] [address] Jan, [facility] [address] [id number] [address] [place] [address], [place] [address] Jan, [facility] [address] [id number] [address] [place] [address], [place] [address] Jan, [facility] [address] [id number] [facility] [address] Jan, [facility] [address] [id number] [facility] [address] Jan, [facility] [address] [id number] [facility] [address] Jan, [facility] [address] [id number] [address] [place] [address], [place] [address] Jan, [facility] [address] [id number] [address] [place] [address], [place] [address] Jan, [facility] [address] [id number] [address] [place] [address], [place] [address] Jan, [facility] [address] [id number] [address] [place] [address], [place] [address] Jan, [facility] [address] [id number] [address] [place] [address], [place] [address] Jan, [facility] [address] [id number] [address] [place] [address], [place] [address] Jan, [facility] [address] [id number] [address] [place] [address], [place] [address] Dec, [facility] [address] [id number] [address] [place] [address], [place] [address] Dec, [facility] [address] [id number] [address] [place] [address], [place] [address] Dec, [facility] [address] [id number] [address] [place] [address], [place] [address] Dec, [facility] [address] [id number] [address] [place] [address], [place] [address] Dec, [facility] [address] [id number] [address] [place] [address], [place] [address] Dec, [facility] [address] [id number] [address] [place] [address], [place] [address] Dec, [facility] [address] [id number] [address] [place] [address], [place] [address] Dec, 2013 [facility] [address] [id number] [address] [place] [address], [place] [address] Dec, [facility] [address] [id number] [address] [place] [address], [place] [address] Dec, [facility] [address] [id number] [address] [place] [address], [place] [address] Dec, [facility] [address] [id number] [address] [place] [address], [place] [address] Dec, [facility] [address] [id number] [address] [place] [address], [place] [address] Nov, [facility] [address] [id number] [address] [place] [address], [place] [address] Nov, [facility] [address] [id number] [address] [place] [address], [place] [address] Nov, [facility] [address] [id number] [address] [place] [address], [place] [address] Nov, [facility] [address] [id number] [address] [place] [address], [place] [address] Nov, [facility] [address] [id number] [address] [place] [address], [place] [address] Nov, [facility] [address] [id number] [address] [place] [address], [place] [address] Nov, [facility] [address] [id number] [address] [place] [address], [place] [address] Nov, [facility] [address] [id number] [address] [place] [address], [place] [address] Nov, [facility] [address] [id number] [address] [place] [address], [place] [address] Nov, [facility] [address] [id number] [address] [place] [address], [place] [address] Nov, [facility] [address] [id number] [address] [place] [address], [place] [address] Nov, [facility] [address] [id number] [address] [place] [address], [place] [address] Nov, [facility] [address] [id number] [address] [place] [address], [place] [address] Nov, [facility] [address] [id number] [address] [place] [address], [place] [address] October, [facility] [address] [id number] [address] [place] [address], [place] [address] October, [facility] [address] [id number] [address] [place] [address], [place] [address] October, [facility] [address] [id number] [address] [place] [address], [place] [address] October, [facility] [address] [id number] [address] [place] [address], [place] [address] October, [facility] [address] [id number] [address] [place] [address], [place] [address] October, [facility] [address] [id number] [address] [place] [address], [place] [address] October, [facility] [address] [id number] [address] [place] [address], [place] [address] October, [facility] [address] [id number] [address] [place] [address], [place] [address] October, [facility] [address] [id number] [address] [place] [address], [place] [address] October, [facility] [address] [id number] [address] [place] [address], [place] [address] October, [facility] [address] [id number] [address] [place] [address], [place] [address] October, [facility] [address] [id number] [facility] [address] Sep, [facility] [address] [id number] [facility] [address] Sep, [facility] [address] [id number] [facility] [address] Sep, [facility] [address] [id number] [address] [place] [address], [place] [address] Sep, [facility] [address] [id number] [address] [place] [address], [place] [address] Sep, [facility] [address] [id number] [address] [place] [address], [place] [address] Sep, [facility] [address] [id number] [address] [place] [address], [place] [address] Aug, [facility] [address] [id number] [address] [place] [address], [place] [address] Aug, [facility] [address] [id number] [address] [place] [address], [place] [address] Aug, [facility] [address] [id number] [address] [place] [address], [place] [address] Aug, [facility] [address] [id number] [address] [place] [address], [place] [address] Aug, [facility] [address] [id number] [address] [place] [address], [place] [address] Aug, [facility] [address] [id number] [address] [place] [address], [place] [address] Jul, [facility] [address] [id number] [address] [place] [address], [place] [address] Jul, [facility] [address] [id number] [address] [place] [address], [place] [address] Jul, [facility] [address] [id number] [address] [place] [address], [place] [address] Jul, [facility] [address] [id number] [address] [place] [address], [place] [address] Jul, [facility] [address] [id number] [address] [place] [address], [place] [address] Jul, [facility] [address] [id number] [address] [place] [address], [place] [address] Jul, [facility] [address] [id number] [address] [place] [address], [place] [address] Jul, [facility] [address] [id number] [address] [place] [address], [place] [address] Jul, [facility] [address] [id number] [address] [place] [address], [place] [address] Jul, [facility] [address] [id number] [address] [place] [address], [place] [address] Jun, [facility] [address] [id number] [address] [place] [address], [place] [address] Jun, [facility] [address] [id number] [address] [place] [address], [place] [address] Jun, [facility] [address] [id number] [address] [place] [address], [place] [address] Jun, [facility] [address] [id number] [address] [place] [address], [place] [address] Jun, [facility] [address] [id number] [address] [place] [address], [place] [address] Jun, [facility] [address] [id number] [address] [place] [address], [place] [address] Jun, [facility] [address] [id number] [address] [place] [address], [place] [address] Jun, [facility] [address] [id number] [address] [place] [address], [place] [address] May, [facility] [address] [id number] [address] [place] [address], [place] [address] May, [facility] [address] [id number] [address] [place] [address], [place] [address] May, [facility] [address] [id number] [address] [place] [address], [place] [address] May, [facility] [address] [id number] [address] [place] [address], [place] [address] May, [facility] [address] [id number] [address] [place] [address], [place] [address] May, [facility] [address] [id number] [address] [place] [address], [place] [address] May, [facility] [address] [id number] [address] [place] [address], [place] [address] May, [facility] [address] [id number] [address] [place] [address], [place] [address] Apr, [facility] [address] [id number] [address] [place] [address], [place] [address] Apr, [facility] [address] [id number] [address] [place] [address], [place] [address] Apr, [facility] [address] [id number] [address] [place] [address], [place] [address] Apr, [facility] [address] [id number] [address] [place] [address], [place] [address] Apr, [facility] [address] [id number] [address] [place] [address], [place] [address] Apr, [facility] [address] [id number] [address] [place] [address], [place] [address] Mar, [facility] [address] [id number] [address] [place] [address], [place] [address] Mar, [facility] [address] [id number] [address] [place] [address], [place] [address] Mar, [facility] [address] [id number] [address] [place] [address], [place] [address] Mar, [facility] [address] [id number] [address] [place] [address], [place] [address] Mar, [facility] [address] [id number] [address] [place] [address], [place] [address] Mar, [facility] [address] [id number] [address] [place] [address], [place] [address] Mar, [facility] [address] [id number] [address] [place] [address], [place] [address] 30 Feb, 2013 [facility] [address] [id number] [address] [place] [address], [place] [address] 30 Feb, 2013 [facility] [address] [id number] [address] [place] [address], [place] [address] Feb, [facility] [address] [id number] [address] [place] [address], [place] [address] Feb, [facility] [address] [id number] [address] [place] [address], [place] [address] Feb, [facility] [address] [id number] [address] [place] [address], [place] [address] Feb, [facility] [address] [id number] [address] [place] [address], [place] [address] Jan, [facility] [address] [id number] [address] [place] [address], [place] [address] Jan, [facility] [address] [id number] [address] [place] [address], [place] [address] Jan, [facility] [address] [id number] [address] [place] [address], [place] [address] Jan, [facility] [address] [id number] [address] [place] [address], [place] [address] Jan, [facility] [address] [id number] [address] [place] [address], [place] [address] Jan, [facility] [address] [id number] [address] [place] [address], [place] [address] Jan, [facility] [address] [id number] [address] [place] [address], [place] [address] Jan, [facility] [address] [id number] [address] [place] [address], [place] [address] Jan, [facility] [address] [id number] [address] [place] [address], [place] [address] Dec, [facility] [address] [id number] [address] [place] [address], [place] [address] Dec, [facility] [address] [id number] [address] [place] [address], [place] [address] Dec, [facility] [address] [id number] [address] [place] [address], [place] [address] Dec, [facility] [address] [id number] [address] [place] [address], [place] [address] Dec, [facility] [address] [id number] [address] [place] [address], [place] [address] Dec, [facility] [address] [id number] [address] [place] [address], [place] [address] Dec, [facility] [address] [id number] [address] [place] [address], [place] [address] Dec, [facility] [address] [id number] [address] [place] [address], [place] [address] Dec, [facility] [address] [id number] [address] [place] [address], [place] [address] Dec, [facility] [address] [id number] [address] [place] [address], [place] [address] Dec, [facility] [address] [id number] [address] [place] [address], [place] [address] Dec, [facility] [address] [id number] [address] [place] [address], [place] [address] Dec, [facility] [address] [id number] [address] [place] [address], [place] [address] Nov, [facility] [address] [id number] [address] [place] [address], [place] [address] Nov, [facility] [address] [id number] [address] [place] [address], [place] [address] Nov, [facility] [address] [id number] [address] [place] [address], [place] [address] Nov, [facility] [address] [id number] [address] [place] [address], [place] [address] October, [facility] [address] [id number] [address] [place] [address], [place] [address] October, [facility] [address] [id number] [address] [place] [address], [place] [address] October, [facility] [address] [id number] [address] [place] [address], [place] [address] October, [facility] [address] [id number] [address] [place] [address], [place] [address] October, [facility] [address] [id number] [address] [place] [address], [place] [address] October, [facility] [address] [id number] [address] [place] [address], [place] [address] Sep, [facility] [address] [id number] [address] [place] [address], [place] [address] Sep, [facility] [address] [id number] [address] [place] [address], [place] [address] Sep, [facility] [address] [id number] [address] [place] [address], [place] [address] Sep, [facility] [address] [id number] [address] [place] [address], [place] [address] 19 Sep, 2012 [facility] [address] [id number] [address] [place] [address], [place] [address] 16 Sep, 2012 [facility] [address] [id number] [address] [place] [address], [place] [address] Sep, [facility] [address] [id number] [address] [place] [address], [place] [address] Sep, [facility] [address] [id number] [address] [place] [address], [place] [address] Sep, [facility] [address] [id number] [address] [place] [address], [place] [address] Sep, [facility] [address] [id number] [address] [place] [address], [place] [address] Sep, [facility] [address] [id number] [address] [place] [address], [place] [address] Aug, [facility] [address] [id number] [address] [place] [address], [place] [address] Aug, [facility] [address] [id number] [address] [place] [address], [place] [address] 25 Aug, 2012 [facility] [address] [id number] [address] [place] [address], [place] [address] Aug, [facility] [address] [id number] [address] [place] [address], [place] [address] 19 Aug, 2012 [facility] [address] [id number] [address] [place] [address], [place] [address] 18 Aug, 2012 [facility] [address] [id number] [address] [place] [address], [place] [address] 17 Aug, 2012 [facility] [address] [id number] [address] [place] [address], [place] [address] 15 Aug, 2012 [facility] [address] [id number] [address] [place] [address], [place] [address] 15 Aug, 2012 [facility] [address] [id number] [address] [place] [address], [place] [address] Aug, [facility] [address] [id number] [address] [place] [address], [place] [address] Aug, [facility] [address] [id number] [address] [place] [address], [place] [address] Aug, [facility] [address] [id number] [address] [place] [address], [place] [address] Jul, [facility] [address] [id number] [address] [place] [address], [place] [address] Jul, [facility] [address] [id number] [address] [place] [address], [place] [address] Jul, [facility] [address] [id number] [address] [place] [address], [place] [address] Jul, [facility] [address] [id number] [address] [place] [address], [place] [address] Jul, [facility] [address] [id number] [address] [place] [address], [place] [id number] Jul, [facility] [address] [id number] [address] [place] [address], [place] [address] Jul, [facility] [address] [id number] [address] [place] [address], [place] [address] Jul, [facility] [address] [id number] [address] [place] [address], [place] [address] Jul, [facility] [address] [id number] [address] [place] [address], [place] [address] Jul, [facility] [address] [id number] [address] [place] [address], [place] [address] May, [facility] [address] [id number] [place] [id number] May, [facility] [address] [id number] [address] [address] May, [facility] [address] [id number] [address] [place] [id number] May, [facility] [address] [id number] [address] [place] [id number] May, [facility] [address] [id number] [address] [place] [id number] Apr, [facility] [address] [id number] [place] [id number] Apr, [facility] [address] [id number] [address] [place] [phone] Apr, [facility] [address] [id number] [address] [place] [address] Mar, [facility] [address] [id number] [place] [id number] Mar, [facility] [address] [id number] [address] [place] [id number] Mar, [facility] [address] [id number] [place] [id number] Feb, [facility] [address] [id number] [address] [place] [address] Feb, [facility] [address] [id number] [address] [place] [id number] Feb, [facility] [address] [id number] [place] [id number] Feb, [facility] [address] [id number] [place] [id number] Feb, [facility] [place] [address] [id number] [place] [id number] Jan, [facility] [address] [id number] [address] [place] [id number] Jan, [facility] [place] [address] [id number] [place] [id number] Jan, [facility] [place] [address] [id number] [place] [id number] Jan, [facility] [place] [address] [id number] [place] [id number] Jan, [facility] [address] [facility] [id number] [address] [address] Jan, [facility] [address] [facility] [id number] [address] [place] [id number] Jan, [facility] [address] [facility] [id number] [address] [place] [address] Aug, [facility] [place] [address] [id number] [place] [id number] Aug, [facility] [address] [facility] [id number] [address] [place] [id number] Jul, [facility] [address] [facility] [id number] [address] [place] [id number] Jul, [facility] [address] [facility] [id number] [address] [place] [id number] Jul, [facility] [place] [address] [id number] [place] [id number] Jul, 2011 [facility] [address] [facility] [id number] [address] [place] [id number] Jul, [facility] [address] [id number] [place] [id number] Jul, [facility] [address] [facility] [id number] [address] [place] [id number] Jul, [facility] [place] [address] [id number] [place] [id number] Jul, [facility] [place] [address] [id number] [place] [id number] Jul, [facility] [place] [address] [id number] [place] [id number] Jul, [facility] [address] [facility] [id number] [address] [place] [id number] May, [facility] [address] [id number] [address] [place] [id number] May, [facility] [address] [id number] [address] [place] [id number] May, [facility] [address] [id number] [address] [place] [id number] Apr, [facility] [address] [id number] [address] [place] [id number] Jan, [facility] [address] [id number] [address] [place] [id number] Jan, [facility] [address] [id number] [address] [place] [id number] Dec, [facility] [address] [id number] [address] [place] [id number] Dec, [facility] [address] [id number] [address] [place] [id number] May, [facility] [address] [id number] [address] [place] [id number] Mar, [facility] [address] [id number] [address] [place] [id number] Mar, [facility] [address] [id number] [address] [place] [id number] 14 Jan, 2009 IMMUNIZATIONS No Known Immunizations SOCIAL HISTORY Never [...]
--- OUTSIDE RECORDS SUMMARY | 2020-01-28 12:20 | XMS REPORT ---
Author Author Heydi Candelario Doctor Organization [facility] Address Unknown Phone Unavailable Care Team Providers Care Independent Contractor Name Role Phone Migration, Doctor Unavailable Unavailable PROBLEMS Type Condition ICD9-CM Code IOW72-CK Code Onset Dates Condition S tatus SNOMED Code Problem Chronic pain syndrome G89.4 Active 332272396 Problem Sore throat J02.9 Active 16164094 3 Problem Choriocarcinoma C58 Active 1881 13807 Problem residential 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 Z79.01 Active 553962890 Problem History of venous thromboembolism V12.51 Active 428460236 Problem Cellulitis of unspecified part of limb L03.119 Active 107293175 Problem Gastroesophageal reflux disease without esophagitis K21.9 Active 664534864 Problem History of pulmonary embolism Z86.711 Active 384157670 Problem Pseudotumor cerebri G93.2 Active 86694581 Problem History of DVT (deep vein thrombosis) Z86.718 Active 334633478 ALLERGIES No Information ENCOUNTERS Encounter Location Date Diagnosis [place] [address] [facility] [id number] [address] [place] [id number] Apr, apartment coordinator (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) use of 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 Z79.01 [place] [address] [facility] [id number] [address] [place] [address] Apr, apartment coordinator 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.01 [place] [facility] [id number] [address] [place] [address] Apr, Cellulitis of unspecified pa rt of limb L03.119 ; Allergic contact dermatitis due to adhesives L23.1 and Chronic pain syndrome G89.4 [facility] [address] [facility] [id number] [address] [place] [address] Apr, [place] [address] [facility] [id number] [address] [place] [address] Apr, residential 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.01 ; Cellulitis of unspecified part of limb L03.119 ; Chronic pain syndrome G89.4 and Anxiety F41.9 [place] [address] [place] [id number] [address] [place] [address] 16 Apr, 2015 [place] [address] [place] [id number] [place] [phone] Apr, [place] [address] [id number] Mar, [place] [address] [place] [id number] [place] [phone] Mar, [place] [address] [address] Mar, Sore throat J02.9 ; Gastroes ophageal reflux disease without esophagitis K21.9 ; Pseudotumor cerebri G93.2 ; Chronic pain syndrome G89.4 ; Choriocarcinoma C58 ; History of pulmonary embolism Z86.711 ; History of DVT (deep vein thrombosis) Z86.718 ; Anxiety F41.9 and Tachycardia R00.0 [place] [address] [address] Feb, Anxiety 300.00 and Chronic p ain 338.29 [place] [address] [place] [id number] [address] [place] [phone] Feb, [place] [id number] [place] [address] Feb, [place] [address] [place] [id number] [place] [phone] Jan, residential 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 therapy V58.61 and Dysuria 788.1 [place] [address] [place] [id number] [address] [place] [address] Jan, Dysuria 788.1 [place] [address] [place] [id number] [place] [address] Jan, Anxiety 300.00 and Chronic p ain 338.29 [place] [address] [id number] Jan, [facility] [address] [address] Jan, [place] [address] [address] Jan, [place] [address] [address] Dec, Weakness 780.79 [place] [address] [address] Dec, apartment coordinator 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 therapy V58.61 [place] [address] [address] Dec, Palpitations 785.1 ; Tremor 781.0 ; Weakness 780.79 ; residential 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 therapy V58.61 and Yeast vaginitis 112.1 [place] [address] [address] Dec, [place] [address] [address] Dec, Cervicalgia 723.1 ; Tachycar yoseph 785.0 ; Pseudotumor cerebri 348.2 and History of venous thromboembolism V12.51 [place] [address] [place] [id number] [address] [place] [address] Nov, [place] [address] [address] Nov, [place] [address] [address] Nov, Tachycardia 785.0 ; Pseudotu mor cerebri 348.2 ; Anxiety 300.00 and History of venous thromboembolism V12.51 [facility] [address] [id number] [address] [place] [address], [place] [address] Nov, [facility] [address] [id number] [address] [place] [address], [place] [address] 18 Nov, 2014 [facility] [address] [id number] [address] [place] [address], [place] [address] 16 Nov, 2014 [facility] [address] [id number] [address] [place] [address], [place] [address] Nov, [facility] [address] [id number] [address] [place] [address], [place] [address] Nov, [facility] [address] [id number] [address] [place] [address], [place] [address] Nov, [facility] [address] [id number] [address] [place] [address], [place] [address] Nov, [facility] [address] [id number] [address] [place] [phone] October, [facility] [address] [id number] [address] [place] [address] October, [facility] [address] [id number] [address] [place] [address] October, Pain in thoracic spine 724.1 and Tachycardia 785.0 [facility] [place] [address] [id number] [address] [place] [phone] October, [facility] [address] [id number] [address] [place] [address] October, [facility] [address] [id number] [address] [place] [phone] Sep, [facility] [address] [id number] [address] [place] [phone] Sep, [facility] [address] [id number] [address] [place] [phone] Aug, [facility] [address] [id number] [address] [place] [address], [place] [address] Aug, [facility] [address] [id number] [address] [place] [address], [place] [address] Aug, [facility] [address] [id number] [address] [place] [address], [place] [address] 17 Aug, 2014 [facility] [address] [id number] [address] [place] [address], [place] [address] Aug, [facility] [address] [id number] [address] [place] [address], [place] [address] 16 Aug, 2014 [facility] [address] [id number] [address] [place] [address], [place] [address] Aug, [facility] [address] [id number] [address] [place] [address], [place] [address] Aug, [facility] [address] [id number] [address] [place] [address], [place] [address] Aug, 2014 [facility] [address] [id number] [address] [place] [address], [place] [address] Aug, [facility] [address] [id number] [address] [place] [address], [place] [address] Aug, [facility] [address] [id number] [address] [place] [address], [place] [address] Aug, [facility] [address] [id number] [address] [place] [address], [place] [address] Jul, 2014 [facility] [address] [id number] [address] [place] [address], [place] [address] Jul, 2014 [facility] [address] [id number] [address] [place] [address], [place] [address] Jul, 2014 [facility] [address] [id number] [address] [place] [address], [place] [address] Jul, 2014 [facility] [address] [id number] [address] [place] [address], [place] [address] b, 2014 [facility] [address] [id number] [address] [place] [address], [place] [address] 23 Jul, 2014 [facility] [address] [id number] [address] [place] [address], [place] [address] 23 Jul, 2014 [facility] [address] [id number] [address] [place] [address], [place] [address] 23 Jul, 2014 [facility] [address] [id number] [address] [place] [address], [place] [address] 20 Jul, 2014 [facility] [address] [id number] [address] [place] [address], [place] [address] 20 Jul, 2014 [facility] [address] [id number] [address] [place] [address], [place] [address] 19 Jul, 2014 [facility] [address] [id number] [address] [place] [address], [place] [address] 19 Jul, 2014 [facility] [address] [id number] [address] [place] [address], [place] [address] 17 Jul, 2014 [facility] [address] [id number] [address] [place] [address], [place] [address] 17 Jul, 2014 [facility] [address] [id number] [address] [place] [address], [place] [address] 16 Jul, 2014 [facility] [address] [id number] [address] [place] [address], [place] [address] 16 Jul, 2014 [facility] [address] [id number] [address] [place] [address], [place] [address] 16 Jul, 2014 [facility] [address] [id number] [address] [place] [address], [place] [address] 16 Jul, 2014 [facility] [address] [id number] [address] [place] [address], [place] [address] 13 Jul, 2014 [facility] [address] [id number] [address] [place] [address], [place] [address] Jul, 2014 [facility] [address] [id number] [address] [place] [address], [place] [address] Jul, 2014 [facility] [address] [id number] [address] [place] [address], [place] [address] Jul, 2014 [facility] [address] [id number] [address] [place] [address], [place] [address] Jul, 2014 [facility] [address] [id number] [address] [place] [address], [place] [address] Jul, 2014 [facility] [address] [id number] [address] [place] [address], [place] [address] Jul, [facility] [address] [id number] [address] [place] [address], [place] [address] Jul, [facility] [address] [id number] [address] [place] [address], [place] [address] Jul, [facility] [address] [id number] [address] [place] [address], [place] [address] Jul, [facility] [address] [id number] [address] [place] [address], [place] [address] Jul, [facility] [address] [id number] [address] [place] [address], [place] [address] Jul, [facility] [address] [id number] [address] [place] [address], [place] [address] Jun, [facility] [address] [id number] [address] [place] [address], [place] [address] Jun, [facility] [address] [id number] [address] [place] [address], [place] [address] Jun, [facility] [address] [id number] [address] [place] [address], [place] [address] Jun, [facility] [address] [id number] [address] [place] [address], [place] [address] Jun, [facility] [address] [id number] [address] [place] [address], [place] [address] Jun, [facility] [address] [id number] [address] [place] [address], [place] [address] Jun, [facility] [address] [id number] [address] [place] [address], [place] [address] Jun, [facility] [address] [id number] [address] [place] [address], [place] [address] Jun, [facility] [address] [id number] [address] [place] [address], [place] [address] Jun, [facility] [address] [id number] [address] [place] [address], [place] [address] Jun, [facility] [address] [id number] [address] [place] [address], [place] [address] Jun, [facility] [address] [id number] [address] [place] [address], [place] [address] Jun, [facility] [address] [id number] [address] [place] [address], [place] [address] Jun, [facility] [address] [id number] [address] [place] [address], [place] [address] Jun, [facility] [address] [id number] [address] [place] [address], [place] [address] Jun, [facility] [address] [id number] [address] [place] [address], [place] [address] Jun, [facility] [address] [id number] [address] [place] [address], [place] [address] Jun, [facility] [address] [id number] [address] [place] [address], [place] [address] Jun, [facility] [address] [id number] [address] [place] [address], [place] [address] Jun, [facility] [address] [id number] [address] [place] [address], [place] [address] May, [facility] [address] [id number] [address] [place] [address], [place] [address] May, [facility] [address] [id number] [address] [place] [address], [place] [address] May, [facility] [address] [id number] [address] [place] [address], [place] [address] May, [facility] [address] [id number] [address] [place] [address], [place] [address] May, [facility] [address] [id number] [address] [place] [address], [place] [address] May, [facility] [address] [id number] [address] [place] [address], [place] [address] May, [facility] [address] [id number] [address] [place] [address], [place] [address] May, [facility] [address] [id number] [address] [place] [address], [place] [address] May, [facility] [address] [id number] [address] [place] [address], [place] [address] May, [facility] [address] [id number] [address] [place] [address], [place] [address] May, [facility] [address] [id number] [address] [place] [address], [place] [address] 18 May, 2014 [facility] [address] [id number] [address] [place] [address], [place] [address] 18 May, 2014 [facility] [address] [id number] [address] [place] [address], [place] [address] 17 May, 2014 [facility] [address] [id number] [address] [place] [address], [place] [address] 16 May, 2014 [facility] [address] [id number] [address] [place] [address], [place] [address] 16 May, 2014 [facility] [address] [id number] [address] [place] [address], [place] [address] 15 May, 2014 [facility] [address] [id number] [address] [place] [address], [place] [address] 15 May, 2014 [facility] [address] [id number] [address] [place] [address], [place] [address] May, [facility] [address] [id number] [address] [place] [address], [place] [address] May, [facility] [address] [id number] [address] [place] [address], [place] [address] May, [facility] [address] [id number] [address] [place] [address], [place] [address] May, [facility] [address] [id number] [address] [place] [address], [place] [address] May, [facility] [address] [id number] [address] [place] [address], [place] [address] May, [facility] [address] [id number] [address] [place] [address], [place] [address] May, [facility] [address] [id number] [address] [place] [address], [place] [address] May, [facility] [address] [id number] [address] [place] [address], [place] [address] May, [facility] [address] [id number] [address] [place] [address], [place] [address] May, [facility] [address] [id number] [address] [place] [address], [place] [address] May, [facility] [address] [id number] [address] [place] [address], [place] [address] May, [facility] [address] [id number] [address] [place] [address], [place] [address] May, [facility] [address] [id number] [address] [place] [address], [place] [address] May, [facility] [address] [id number] [address] [place] [address], [place] [address] May, [facility] [address] [id number] [address] [place] [address], [place] [address] May, [facility] [address] [id number] [address] [place] [address], [place] [address] Apr, [facility] [address] [id number] [address] [place] [address], [place] [address] Apr, [facility] [address] [id number] [address] [place] [address], [place] [address] Apr, [facility] [address] [id number] [address] [place] [address], [place] [address] Apr, [facility] [address] [id number] [address] [place] [address], [place] [address] Apr, [facility] [address] [id number] [address] [place] [address], [place] [address] Apr, [facility] [address] [id number] [address] [place] [address], [place] [address] Apr, [facility] [address] [id number] [address] [place] [address], [place] [address] Apr, [facility] [address] [id number] [address] [place] [address], [place] [address] Apr, [facility] [address] [id number] [address] [place] [address], [place] [address] Apr, [facility] [address] [id number] [address] [place] [address], [place] [address] Mar, [facility] [address] [id number] [address] [place] [address], [place] [address] Mar, [facility] [address] [id number] [address] [place] [address], [place] [address] Mar, [facility] [address] [id number] [address] [place] [address], [place] [address] 31 Mar, 2013 [facility] [address] [id number] [address] [place] [address], [place] [address] 30 Mar, 2013 [facility] [address] [id number] [address] [place] [address], [place] [address] 30 Mar, 2014 [facility] [address] [id number] [address] [place] [address], [place] [address] Mar, 2013 [facility] [address] [id number] [address] [place] [address], [place] [address] 17 Mar, 2013 [facility] [address] [id number] [address] [place] [address], [place] [address] 15 Mar, 2014 [facility] [address] [id number] [address] [place] [id number] 15 Mar, 2014 [facility] [address] [id number] [address] [place] [address], [place] [address] 15 Mar, 2014 [facility] [address] [id number] [address] [place] [id number] Mar, [facility] [address] [id number] [address] [place] [address], [place] [address] Mar, [facility] [address] [id number] [address] [place] [id number] Mar, [facility] [address] [id number] [address] [place] [id number] Mar, [facility] [address] [id number] [address] [place] [id number] Mar, 2013 [facility] [address] [id number] [address] [place] [address], [place] [address] Mar, [facility] [address] [id number] [address] [place] [id number] Mar, [facility] [address] [id number] [address] [place] [id number] Mar, 2013 [facility] [address] [id number] [address] [place] [address], [place] [address] 02 Mar, 2013 [facility] [address] [id number] [address] [place] [address], [place] [id number] 05 Sep, 2013 [facility] [address] [id number] [address] [place] [address], [place] [address] 05 Sep, 2013 [facility] [address] [id number] [address] [place] [address], [place] [id number] 04 Sep, 2013 [facility] [address] [id number] [address] [place] [address], [place] [address] 04 Sep, 2013 [facility] [address] [id number] [address] [place] [address], [place] [id number] 03 Feb, 2013 [facility] [address] [id number] [address] [place] [address], [place] [address] Feb, 2013 [facility] [address] [id number] [address] [place] [address], [place] [id number] Feb, 2013 [facility] [address] [id number] [address] [place] [address], [place] [address] Feb, 2013 [facility] [address] [id number] [address] [place] [address], [place] [address] Feb, 2013 [facility] [address] [id number] [address] [place] [address], [place] [address] Feb, 2013 [facility] [address] [id number] [address] [place] [address], [place] [address] Jan, [facility] [address] [id number] [address] [place] [address], [place] [id number] Jan, [facility] [address] [id number] [address] [place] [address], [place] [address] Jan, [facility] [address] [id number] [address] [place] [address], [place] [address] Jan, [facility] [address] [id number] [address] [place] [address], [place] [address] Jan, [facility] [address] [id number] [address] [place] [address], [place] [address] Jan, [facility] [address] [id number] [address] [place] [address], [place] [address] Jan, [facility] [address] [id number] [address] [place] [address], [place] [address] Jan, [facility] [address] [id number] [address] [place] [address], [place] [address] Jan, [facility] [address] [id number] [address] [place] [address], [place] [address] Jan, [facility] [address] [id number] [address] [place] [address], [place] [address] Jan, [facility] [address] [id number] [address] [place] [address], [place] [address] Jan, [facility] [address] [id number] [address] [place] [address], [place] [address] Dec, [facility] [address] [id number] [address] [place] [address], [place] [address] Dec, [facility] [address] [id number] [address] [place] [address], [place] [address] Dec, [facility] [address] [id number] [address] [place] [address], [place] [address] Dec, [facility] [address] [id number] [address] [place] [address], [place] [address] Dec, [facility] [address] [id number] [address] [place] [address], [place] [address] Dec, [facility] [address] [id number] [address] [place] [address], [place] [address] Dec, [facility] [address] [id number] [address] [place] [address], [place] [address] Dec, [facility] [address] [id number] [address] [place] [address], [place] [address] Dec, [facility] [address] [id number] [address] [place] [address], [place] [address] Dec, [facility] [address] [id number] [address] [place] [address], [place] [address] Dec, [facility] [address] [id number] [address] [place] [address], [place] [address] Dec, [facility] [address] [id number] [address] [place] [address], [place] [address] Nov, [facility] [address] [id number] [address] [place] [address], [place] [address] Nov, [facility] [address] [id number] [address] [place] [address], [place] [address] Nov, [facility] [address] [id number] [address] [place] [address], [place] [address] Nov, [facility] [address] [id number] [address] [place] [address], [place] [address] Nov, [facility] [address] [id number] [address] [place] [address], [place] [address] Nov, [facility] [address] [id number] [address] [place] [address], [place] [address] Nov, [facility] [address] [id number] [address] [place] [address], [place] [address] Nov, [facility] [address] [id number] [address] [place] [address] Nov, [facility] [address] [id number] [address] [place] [address], [place] [address] Nov, [facility] [address] [id number] [address] [place] [address], [place] [address] Nov, [facility] [address] [id number] [address] [place] [address], [place] [address] Nov, [facility] [address] [id number] [address] [place] [address], [place] [address] Nov, [facility] [address] [id number] [address] [place] [address], [place] [address] Nov, [facility] [address] [id number] [address] [place] [address], [place] [address] October, [facility] [address] [id number] [address] [place] [address], [place] [address] October, [facility] [address] [id number] [address] [place] [address], [place] [address] October, [facility] [address] [id number] [address] [place] [address], [place] [address] October, [facility] [address] [id number] [address] [place] [address], [place] [address] October, [facility] [address] [id number] [address] [place] [address], [place] [address] October, [facility] [address] [id number] [address] [place] [address], [place] [address] October, [facility] [address] [id number] [address] [place] [address], [place] [address] October, [facility] [address] [id number] [address] [place] [address], [place] [address] October, [facility] [address] [id number] [address] [place] [address], [place] [address] October, [facility] [address] [id number] [address] [place] [address], [place] [address] October, [facility] [address] [id number] [address] [place] [address], [place] [address] October, [facility] [address] [id number] [address] [place] [address], [place] [address] Sep, [facility] [address] [id number] [address] [place] [address], [place] [address] Sep, [facility] [address] [id number] [facility] [place] [address] Sep, [facility] [address] [id number] [address] [place] [address], [place] [address] Sep, [facility] [address] [id number] [address] [place] [address], [place] [address] Sep, [facility] [address] [id number] [address] [place] [address], [place] [address] Sep, [facility] [address] [id number] [address] [place] [address], [place] [address] Aug, [facility] [address] [id number] [address] [place] [address], [place] [address] Aug, [facility] [address] [id number] [address] [place] [address], [place] [address] Aug, [facility] [address] [id number] [address] [place] [address], [place] [address] Aug, [facility] [address] [id number] [address] [place] [address], [place] [address] Aug, [facility] [address] [id number] [address] [place] [address], [place] [address] Aug, [facility] [address] [id number] [address] [place] [address], [place] [address] Jul, [facility] [address] [id number] [address] [place] [address], [place] [address] Jul, [facility] [address] [id number] [address] [place] [address], [place] [address] Jul, [facility] [address] [id number] [address] [place] [address], [place] [address] Jul, [facility] [address] [id number] [address] [place] [address], [place] [address] Jul, [facility] [address] [id number] [address] [place] [address], [place] [address] 13 Jul, 2013 [facility] [address] [id number] [address] [place] [address], [place] [address] Jul, [facility] [address] [id number] [address] [place] [address], [place] [address] Jul, [facility] [address] [id number] [address] [place] [address], [place] [address] Jul, [facility] [address] [id number] [address] [place] [address], [place] [address] Jul, [facility] [address] [id number] [address] [place] [address], [place] [address] Jun, [facility] [address] [id number] [address] [place] [address], [place] [address] Jun, [facility] [address] [id number] [address] [place] [address], [place] [address] Jun, [facility] [address] [id number] [address] [place] [address], [place] [address] Jun, [facility] [address] [id number] [address] [place] [address], [place] [address] Jun, [facility] [address] [id number] [address] [place] [address], [place] [address] Jun, [facility] [address] [id number] [address] [place] [address], [place] [address] Jun, [facility] [address] [id number] [address] [place] [address], [place] [address] Jun, [facility] [address] [id number] [address] [place] [address], [place] [address] May, [facility] [address] [id number] [address] [place] [address], [place] [address] May, [facility] [address] [id number] [address] [place] [address], [place] [address] May, [facility] [address] [id number] [address] [place] [address], [place] [address] May, [facility] [address] [id number] [address] [place] [address], [place] [address] May, [facility] [address] [id number] [address] [place] [address], [place] [address] May, [facility] [address] [id number] [address] [place] [address], [place] [address] May, [facility] [address] [id number] [address] [place] [address], [place] [address] May, [facility] [address] [id number] [address] [place] [address], [place] [address] Apr, [facility] [address] [id number] [address] [place] [address], [place] [address] Apr, [facility] [address] [id number] [address] [place] [address] Apr, [facility] [address] [id number] [address] [place] [address] Apr, [facility] [address] [id number] [address] [place] [address] Apr, [facility] [address] [id number] [address] [place] [address] Apr, [facility] [address] [id number] [address] [place] [id number] Mar, [facility] [address] [id number] [address] [place] [address] Mar, [facility] [address] [id number] [address] [place] [address] Mar, [facility] [address] [id number] [address] [place] [id number] Mar, [facility] [address] [id number] [address] [place] [address], [place] [address] Mar, [facility] [address] [id number] [address] [place] [address], [place] [address] Mar, [facility] [address] [id number] [address] [place] [address], [place] [address] Mar, [facility] [address] [id number] [address] [place] [address], [place] [address] 30 Feb, 2013 [facility] [address] [id number] [address] [place] [address], [place] [address] 30 Feb, 2013 [facility] [address] [id number] [address] [place] [address], [place] [address] 27 Feb, 2013 [facility] [address] [id number] [address] [place] [address], [place] [address] Feb, [facility] [address] [id number] [address] [place] [address], [place] [address] Feb, [facility] [address] [id number] [address] [place] [address], [place] [address] Feb, [facility] [address] [id number] [address] [place] [address], [place] [address] Jan, [facility] [address] [id number] [address] [place] [address], [place] [address] Jan, [facility] [address] [id number] [address] [place] [address], [place] [address] Jan, [facility] [address] [id number] [address] [place] [address], [place] [address] Jan, [facility] [address] [id number] [address] [place] [address], [place] [address] Jan, [facility] [address] [id number] [address] [place] [address], [place] [address] Jan, [facility] [address] [id number] [address] [place] [address], [place] [address] Jan, [facility] [address] [id number] [address] [place] [address], [place] [address] Jan, [facility] [address] [id number] [address] [place] [address], [place] [address] Jan, [facility] [address] [id number] [address] [place] [address], [place] [address] Dec, [facility] [address] [id number] [address] [place] [address], [place] [address] Dec, [facility] [address] [id number] [address] [place] [address], [place] [address] Dec, [facility] [address] [id number] [address] [place] [address], [place] [address] Dec, [facility] [address] [id number] [address] [place] [address], [place] [address] Dec, [facility] [place] [address] [id number] [address] [place] [address], [place] [address] Dec, [facility] [place] [address] [id number] [address] [place] [address], [place] [address] Dec, [facility] [address] [id number] [address] [place] [address], [place] [address] Dec, [facility] [address] [id number] [address] [place] [address], [place] [address] Dec, [facility] [address] [id number] [address] [place] [address], [place] [address] Dec, [facility] [address] [id number] [address] [place] [address], [place] [address] Dec, [facility] [address] [id number] [address] [place] [address], [place] [address] Dec, [facility] [address] [id number] [address] [place] [address], [place] [address] Dec, [facility] [address] [id number] [address] [place] [address], [place] [address] Nov, [facility] [address] [id number] [address] [place] [address], [place] [address] Nov, [facility] [address] [id number] [address] [place] [address], [place] [address] Nov, [facility] [address] [id number] [address] [place] [address], [place] [address] Nov, [facility] [address] [id number] [address] [place] [address], [place] [address] October, [facility] [address] [id number] [address] [place] [address], [place] [address] October, [facility] [address] [id number] [address] [place] [address], [place] [address] October, [facility] [address] [id number] [address] [place] [address], [place] [address] October, [facility] [address] [id number] [address] [place] [address], [place] [address] October, [facility] [address] [id number] [address] [place] [address], [place] [address] October, [facility] [address] [id number] [address] [place] [address], [place] [address] 30 Sep, 2012 [facility] [place] [address] [id number] [address] [place] [address], [place] [address] 29 Sep, 2012 [facility] [address] [id number] [address] [place] [address], [place] [address] 27 Sep, 2012 [facility] [address] [id number] [address] [place] [address], [place] [address] 23 Sep, 2012 [facility] [address] [id number] [address] [place] [address], [place] [address] Sep, [facility] [address] [id number] [address] [place] [address], [place] [address] 16 Sep, 2012 [facility] [address] [id number] [facility] [place] [address] 12 Sep, 2012 [facility] [place] [address] [id number] [address] [place] [address], [place] [address] Sep, [facility] [address] [id number] [address] [place] [address], [place] [address] Sep, [facility] [place] [address] [id number] [address] [place] [address], [place] [address] Sep, [facility] [place] [address] [id number] [address] [place] [address], [place] [address] Sep, [facility] [place] [address] [id number] [address] [place] [address], [place] [address] Aug, [facility] [address] [id number] [address] [place] [address], [place] [address] Aug, [facility] [place] [address] [id number] [address] [place] [address], [place] [address] 25 Aug, 2012 [facility] [address] [id number] [address] [place] [address], [place] [address] 21 Aug, 2012 [facility] [place] [address] [id number] [address] [place] [address], [place] [address] 19 Aug, 2012 [facility] [address] [id number] [address] [place] [address], [place] [address] 18 Aug, 2012 [facility] [place] [address] [id number] [address] [place] [address], [place] [address] 17 Aug, 2012 [facility] [address] [id number] [address] [place] [address], [place] [address] 15 Aug, 2012 [facility] [address] [id number] [address] [place] [address], [place] [address] 15 Aug, 2012 [facility] [address] [id number] [address] [place] [address], [place] [address] 11 Aug, 2012 [facility] [place] [address] [id number] [address] [place] [address], [place] [address] Aug, [facility] [address] [id number] [address] [place] [address], [place] [address] Aug, [facility] [address] [id number] [address] [place] [address], [place] [address] Jul, [facility] [address] [id number] [address] [place] [address], [place] [address] Jul, [facility] [address] [id number] [address] [place] [address], [place] [address] Jul, [facility] [address] [id number] [address] [place] [address], [place] [address] Jul, [facility] [address] [id number] [address] [place] [address], [place] [address] Jul, [facility] [address] [id number] [address] [place] [address], [place] [address] Jul, [facility] [address] [id number] [address] [place] [address], [place] [address] Jul, [facility] [address] [id number] [address] [place] [address], [place] [address] Jul, [facility] [address] [id number] [address] [place] [address], [place] [address] Jul, [facility] [place] [address] [id number] [address] [place] [id number] Jul, [facility] [address] [id number] [address] [place] [id number] May, [facility] [address] [id number] [place] [id number] May, [facility] [address] [id number] [address] [place] [id number] May, [facility] [address] [id number] [address] [place] [address], [place] [address] 14 May, 2012 [facility] [address] [id number] [address] [place] [address], [place] [address] May, [facility] [address] [id number] [address] [place] [address], [place] [address] Apr, [facility] [address] [id number] [place] [id number] Apr, [facility] [address] [facility] [id number] [address] [place] [address], [place] [address] Apr, [facility] [address] [facility] [id number] [address] [place] [address], [place] [address] Mar, [facility] [place] [address] [id number] [place] [id number] Mar, [facility] [address] [facility] [id number] [address] [place] [address], [place] [address] Mar, [facility] [place] [address] [id number] [place] [id number] Feb, [facility] [address] [facility] [id number] [address] [place] [address], [place] [address] Feb, [facility] [address] [facility] [id number] [address] [place] [address], [place] [address] Feb, [facility] [address] [id number] [place] [id number] Feb, [facility] [address] [id number] [place] [id number] Feb, [facility] [address] [id number] [place] [id number] Jan, [facility] [address] [id number] [address] [place] [address], [place] [address] Jan, [facility] [place] [address] [id number] [place] [id number] Jan, [facility] [address] [id number] [place] [id number] Jan, [facility] [place] [address] [id number] [place] [id number] Jan, [facility] [address] [id number] [address] [place] [address], [place] [address] Jan, [facility] [address] [facility] [id number] [address] [place] [address], [place] [address] Jan, [facility] [address] [facility] [id number] [address] [place] [address], [place] [address] Aug, [facility] [place] [address] [facility] [id number] [place] [id number] Aug, [facility] [address] [facility] [id number] [address] [place] [address], [place] [address] Jul, [facility] [address] [facility] [id number] [address] [place] [address], [place] [address] Jul, [facility] [address] [facility] [id number] [address] [place] [address], [place] [address] Jul, [facility] [place] [address] [facility] [id number] [place] [id number] Jul, [facility] [address] [facility] [id number] [address] [place] [address], [place] [address] Jul, [facility] [address] [facility] [id number] [place] [id number] Jul, [facility] [address] [facility] [id number] [address] [place] [address], [place] [address] Jul, [facility] [place] [address] [id number] [place] [id number] Jul, [facility] [place] [address] [id number] [place] [id number] Jul, [facility] [address] [id number] [place] [id number] Jul, [facility] [address] [facility] [id number] [address] [place] [address], [place] [address] May, [facility] [address] [facility] [id number] [address] [place] [address], [place] [address] May, [facility] [address] [id number] [address] [place] [id number] May, [facility] [address] [id number] [address] [place] [id number] Apr, [facility] [address] [id number] [address] [place] [id number] Jan, [facility] [address] [id number] [address] [place] [id number] Jan, [facility] [facility] [address] [id number] [address] [place] [id number] Dec, [facility] [address] [id number] [address] [place] [id number] Dec, [facility] [address] [id number] [address] [place] [id number] 16 May, 2009 [facility] [address] [id number] [address] [place] [phone] Mar, [facility] [address] [id number] [address] [place] [id number] Mar, [facility] [address] [id number] [address] [place] [id number] Jan, IMMUNIZATIONS No Known Immunizations SOCIAL HISTORY [...]
--- OUTSIDE RECORDS SUMMARY | 2020-01-28 12:20 | XMS REPORT ---
Author Author Heydi MARINO Organization [facility] Address [address] [place] [address] Care Team Providers Care Development Expert Name Role Phone CELESTE MARINO Unavailable PROBLEMS Type Condition ICD9-CM Code ZGC43-NO Code Onset Dates Condition S tatus SNOMED Code Problem Chronic pain syndrome G89.4 Active 800294896 Problem Sore throat J02.9 Active 39232425 3 Problem Choriocarcinoma C58 Active 1881 56264 Problem long-term 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 Z79.01 Active 059772905 Problem History of venous thromboembolism V12.51 Active 025672565 Problem Cellulitis of unspecified part of limb L03.119 Active 484726830 Problem Gastroesophageal reflux disease without esophagitis K21.9 Active 993975337 Problem History of pulmonary embolism Z86.711 Active 954493672 Problem Pseudotumor cerebri G93.2 Active 59779742 Problem History of DVT (deep vein thrombosis) Z86.718 Active 378815081 ALLERGIES No Information ENCOUNTERS Encounter Location Date Diagnosis [place] [id number] 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 [id number] [address] [place] [address] Apr, [facility] [address] [place] [id number] [address] [place] [address] Apr, long-term 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.01 ; Cellulitis of unspecified part of limb L03.119 ; Chronic pain syndrome G89.4 and Anxiety F41.9 [place] [address] [place] [id number] [address] [place] [address] 16 Apr, 2015 [place] [address] [address] Apr, [place] [address] [address] Mar, [place] [address] [address] Mar, [place] [address] [address] Mar, Sore throat J02.9 ; Gastroes ophageal reflux disease without esophagitis K21.9 ; Pseudotumor cerebri G93.2 ; Chronic pain syndrome G89.4 ; Choriocarcinoma C58 ; History of pulmonary embolism Z86.711 ; History of DVT (deep vein thrombosis) Z86.718 ; Anxiety F41.9 and Tachycardia R00.0 [place] [address] [place] [id number] [address] [place] [address] Feb, Anxiety 300.00 and Chronic p ain 338.29 [place] [id number] [place] [address] Feb, [place] [address] [place] [id number] [address] [place] [address] Feb, [place] [address] [address] Jan, long-term 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 therapy V58.61 and Dysuria 788.1 [place] [address] [place] [id number] [address] [place] [address] Jan, Dysuria 788.1 [place] [address] [place] [id number] [address] [place] [address] Jan, Anxiety 300.00 and Chronic p ain 338.29 [facility] [address] [address] Jan, [place] [address] [address] Jan, [place] [address] [address] Jan, [place] [address] [address] Dec, Weakness 780.79 [place] [address] [address] 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, 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 [place] [address] [address] Dec, Palpitations 785.1 ; Tremor 781.0 ; Weakness 780.79 ; long-term 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 therapy V58.61 and Yeast vaginitis 112.1 [place] [address] [address] Dec, [place] [address] [address] Dec, Cervicalgia 723.1 ; Tachycar yoseph 785.0 ; Pseudotumor cerebri 348.2 and History of venous thromboembolism V12.51 [place] [address] [address] Nov, [place] [address] [address] Nov, [place] [address] [address] Nov, Tachycardia 785.0 ; Pseudotu mor cerebri 348.2 ; Anxiety 300.00 and History of venous thromboembolism V12.51 [facility] [address] [id number] [address] [place] [address] Nov, [facility] [address] [id number] [address] [place] [address] 18 Nov, 2014 [facility] [address] [id number] [address] [place] [address] 16 Nov, 2014 [facility] [address] [id number] [address] [place] [address] Nov, [facility] [address] [id number] [address] [place] [address] Nov, [facility] [address] [id number] [address] [place] [address] Nov, [facility] [address] [id number] [address] [place] [address] Nov, [facility] [address] [id number] [address] [place] [address] October, [facility] [address] [id number] [address] [place] [address] October, [facility] [address] [facility] [id number] [address] [place] [address] October, Pain in thoracic spine 724.1 and Tachycardia 785.0 [facility] [address] [id number] [address] [place] [address] October, [facility] [address] [id number] [address] [place] [address] October, [facility] [address] [id number] [address] [place] [address] 14 Sep, 2014 [facility] [address] [id number] [address] [place] [address] Sep, [facility] [address] [id number] [facility] [place] [address] Aug, [facility] [address] [id number] [address] [place] [address], [place] [address] Aug, [facility] [address] [id number] [facility] [place] [address] Aug, [facility] [address] [id number] [address] [place] [address], [place] [address] Aug, [facility] [address] [id number] [address] [place] [address], [place] [address] Aug, [facility] [address] [id number] [address] [place] [address], [place] [address] Aug, [facility] [address] [id number] [address] [place] [address], [place] [address] Aug, [facility] [address] [id number] [address] [place] [address], [place] [address] Aug, [facility] [address] [id number] [address] [place] [address], [place] [address] Aug, [facility] [address] [id number] [address] [place] [address], [place] [address] Aug, [facility] [address] [id number] [address] [place] [address], [place] [address] Aug, [facility] [address] [id number] [address] [place] [address], [place] [address] Aug, [facility] [address] [id number] [address] [place] [address], [place] [address] Jul, [facility] [address] [id number] [address] [place] [address], [place] [address] Jul, [facility] [address] [id number] [address] [place] [address], [place] [address] Jul, [facility] [address] [id number] [address] [place] [address], [place] [address] Jul, [facility] [address] [id number] [address] [place] [address], [place] [address] 23 Jul, 2014 [facility] [address] [id number] [address] [place] [address], [place] [address] 23 Jul, 2014 [facility] [address] [id number] [address] [place] [address], [place] [address] 23 Jul, 2014 [facility] [address] [id number] [address] [place] [address], [place] [address] 23 Jul, 2014 [facility] [address] [id number] [address] [place] [address], [place] [address] 20 Jul, 2014 [facility] [address] [id number] [address] [place] [address], [place] [address] 20 Jul, 2014 [facility] [address] [id number] [address] [place] [address], [place] [address] 19 Jul, 2014 [facility] [address] [id number] [address] [place] [address], [place] [address] 19 Jul, 2014 [facility] [address] [id number] [address] [place] [address], [place] [address] 17 Jul, 2014 [facility] [address] [id number] [address] [place] [address], [place] [address] 17 Jul, 2014 [facility] [address] [id number] [address] [place] [address], [place] [address] 16 Jul, 2014 [facility] [address] [id number] [address] [place] [address], [place] [address] 16 Jul, 2014 [facility] [address] [id number] [address] [place] [address], [place] [address] 16 Jul, 2014 [facility] [address] [id number] [address] [place] [address], [place] [address] 16 Jul, 2014 [facility] [address] [id number] [address] [place] [address], [place] [address] 13 Jul, 2014 [facility] [address] [id number] [address] [place] [address], [place] [address] Jul, 2014 [facility] [address] [id number] [address] [place] [address], [place] [address] Jul, 2014 [facility] [address] [id number] [address] [place] [address], [place] [address] Jul, 2014 [facility] [address] [id number] [address] [place] [address], [place] [address] Jul, 2014 [facility] [address] [id number] [address] [place] [address], [place] [address] Jul, 2014 [facility] [address] [id number] [address] [place] [address], [place] [address] Jul, [facility] [address] [id number] [address] [place] [address], [place] [address] Jul, [facility] [address] [id number] [address] [place] [address], [place] [address] Jul, [facility] [address] [id number] [address] [place] [address], [place] [address] Jul, [facility] [address] [id number] [address] [place] [address], [place] [address] Jul, [facility] [address] [id number] [address] [place] [address], [place] [address] Jul, [facility] [address] [id number] [address] [place] [address] Jun, [facility] [address] [id number] [address] [place] [address], [place] [address] Jun, [facility] [address] [id number] [address] [place] [address], [place] [address] Jun, [facility] [address] [id number] [address] [place] [address], [place] [address] Jun, [facility] [address] [id number] [address] [place] [address], [place] [address] Jun, [facility] [address] [id number] [address] [place] [address], [place] [address] Jun, [facility] [address] [id number] [address] [place] [address], [place] [address] Jun, [facility] [address] [id number] [address] [place] [address], [place] [address] Jun, [facility] [address] [id number] [address] [place] [address], [place] [address] Jun, [facility] [address] [id number] [address] [place] [address], [place] [address] Jun, [facility] [address] [id number] [address] [place] [address], [place] [address] Jun, [facility] [address] [id number] [address] [place] [address], [place] [address] Jun, [facility] [address] [id number] [address] [place] [address], [place] [address] Jun, [facility] [address] [id number] [address] [place] [address], [place] [address] Jun, [facility] [address] [id number] [address] [place] [address], [place] [address] Jun, [facility] [address] [id number] [address] [place] [address], [place] [address] Jun, [facility] [address] [id number] [address] [place] [address], [place] [address] Jun, [facility] [address] [id number] [address] [place] [address], [place] [address] Jun, [facility] [address] [id number] [address] [place] [address], [place] [address] Jun, [facility] [address] [id number] [address] [place] [address], [place] [address] Jun, [facility] [address] [id number] [address] [place] [address], [place] [address] May, [facility] [address] [id number] [address] [place] [address], [place] [address] May, [facility] [address] [id number] [address] [place] [address], [place] [address] May, [facility] [address] [id number] [address] [place] [address], [place] [address] May, [facility] [address] [id number] [address] [place] [address], [place] [address] May, [facility] [address] [id number] [address] [place] [address], [place] [address] May, [facility] [address] [id number] [address] [place] [address], [place] [address] May, [facility] [address] [id number] [address] [place] [address], [place] [address] May, [facility] [address] [id number] [address] [place] [address], [place] [address] May, [facility] [address] [id number] [address] [place] [address], [place] [address] May, [facility] [address] [id number] [address] [place] [address], [place] [address] May, [facility] [address] [id number] [address] [place] [address], [place] [address] 18 May, 2014 [facility] [address] [id number] [address] [place] [address], [place] [address] 18 May, 2014 [facility] [address] [id number] [address] [place] [address], [place] [address] 17 May, 2014 [facility] [address] [id number] [address] [place] [address], [place] [address] 16 May, 2014 [facility] [address] [id number] [address] [place] [address], [place] [address] 16 May, 2014 [facility] [address] [id number] [address] [place] [address], [place] [address] May, [facility] [address] [id number] [address] [place] [address], [place] [address] May, [facility] [address] [id number] [address] [place] [address], [place] [address] May, [facility] [address] [id number] [address] [place] [address], [place] [address] May, [facility] [address] [id number] [address] [place] [address], [place] [address] May, [facility] [address] [id number] [address] [place] [address], [place] [address] May, [facility] [address] [id number] [address] [place] [address], [place] [address] May, [facility] [address] [id number] [address] [place] [address], [place] [address] May, [facility] [address] [id number] [address] [place] [address], [place] [address] May, [facility] [address] [id number] [address] [place] [address], [place] [address] May, [facility] [address] [id number] [address] [place] [address], [place] [address] May, [facility] [address] [id number] [address] [place] [address], [place] [address] May, [facility] [address] [id number] [address] [place] [address], [place] [address] May, [facility] [address] [id number] [address] [place] [address], [place] [address] May, [facility] [address] [id number] [address] [place] [address], [place] [address] May, [facility] [address] [id number] [address] [place] [address], [place] [address] May, [facility] [address] [id number] [address] [place] [address], [place] [address] May, [facility] [address] [id number] [address] [place] [address], [place] [address] May, [facility] [address] [id number] [address] [place] [address], [place] [address] Apr, [facility] [address] [id number] [address] [place] [address], [place] [address] Apr, [facility] [address] [id number] [address] [place] [address], [place] [address] Apr, [facility] [address] [id number] [address] [place] [address], [place] [address] Apr, [facility] [address] [id number] [address] [place] [address], [place] [address] Apr, [facility] [address] [id number] [address] [place] [address], [place] [address] Apr, [facility] [address] [id number] [address] [place] [address], [place] [address] Apr, [facility] [address] [id number] [address] [place] [address], [place] [address] Apr, [facility] [address] [id number] [address] [place] [address], [place] [address] Apr, [facility] [address] [id number] [address] [place] [address], [place] [address] Apr, [facility] [address] [id number] [address] [place] [address], [place] [address] Mar, [facility] [address] [id number] [address] [place] [address], [place] [address] Mar, [facility] [address] [id number] [address] [place] [address], [place] [address] Mar, [facility] [address] [id number] [address] [place] [address], [place] [address] 31 Mar, 2013 [facility] [address] [id number] [address] [place] [address], [place] [address] Mar, 2013 [facility] [address] [id number] [address] [place] [address], [place] [address] 30 Mar, 2013 [facility] [address] [id number] [address] [place] [address], [place] [address] Mar, 2013 [facility] [address] [id number] [address] [place] [address], [place] [address] Mar, 2013 [facility] [address] [id number] [address] [place] [address], [place] [address] Mar, [facility] [address] [id number] [address] [place] [address], [place] [address] Mar, [facility] [address] [id number] [address] [place] [id number] Mar, [facility] [address] [id number] [address] [place] [address], [place] [address] Mar, [facility] [address] [id number] [address] [place] [address] Mar, [facility] [address] [id number] [address] [place] [address] Mar, [facility] [address] [id number] [address] [place] [address] Mar, [facility] [address] [id number] [address] [place] [address] Mar, [facility] [address] [id number] [address] [place] [address] Mar, [facility] [address] [id number] [address] [place] [address] Mar, [facility] [address] [id number] [address] [place] [address] 02 Mar, 2013 [facility] [address] [id number] [address] [place] [address], [place] [address] 02 Mar, 2013 [facility] [address] [id number] [address] [place] [address], [place] [address] 05 Sep, 2013 [facility] [address] [id number] [address] [place] [address], [place] [address] 05 Sep, 2013 [facility] [address] [id number] [address] [place] [address], [place] [address] 04 Sep, 2013 [facility] [address] [id number] [address] [place] [address], [place] [address] 04 Sep, 2013 [facility] [address] [id number] [address] [place] [address], [place] [address] 03 Feb, 2013 [facility] [address] [id number] [address] [place] [address], [place] [address] 03 Feb, 2013 [facility] [address] [id number] [address] [place] [address], [place] [address] Feb, 2013 [facility] [address] [id number] [address] [place] [address], [place] [address] Feb, 2013 [facility] [address] [id number] [address] [place] [address], [place] [address] Feb, 2013 [facility] [address] [id number] [address] [place] [address], [place] [address] Feb, 2013 [facility] [address] [id number] [address] [place] [address], [place] [address] Jan, [facility] [address] [id number] [address] [place] [address], [place] [address] Jan, [facility] [address] [id number] [address] [place] [address], [place] [address] Jan, [facility] [address] [id number] [address] [place] [address], [place] [address] Jan, [facility] [address] [id number] [address] [place] [address] Jan, [facility] [address] [id number] [facility] [place] [address] Jan, [facility] [address] [id number] [facility] [place] [address] Jan, [facility] [address] [id number] [facility] [place] [address] Jan, [facility] [address] [id number] [facility] [place] [address] Jan, [facility] [address] [id number] [address] [place] [address], [place] [address] Jan, [facility] [address] [id number] [address] [place] [address], [place] [address] Jan, [facility] [address] [id number] [address] [place] [address], [place] [address] Jan, [facility] [address] [id number] [address] [place] [address], [place] [address] Dec, [facility] [address] [id number] [address] [place] [address], [place] [address] Dec, [facility] [address] [id number] [address] [place] [address], [place] [address] Dec, [facility] [address] [id number] [address] [place] [address], [place] [address] Dec, [facility] [address] [id number] [address] [place] [address], [place] [address] Dec, [facility] [address] [id number] [address] [place] [address], [place] [address] Dec, [facility] [address] [id number] [address] [place] [address], [place] [address] Dec, [facility] [address] [id number] [address] [place] [address], [place] [address] Dec, [facility] [address] [id number] [facility] [place] [address] Dec, 2013 [facility] [address] [id number] [address] [place] [address], [place] [address] Dec, [facility] [address] [address] [id number] [address] [place] [address], [place] [address] Dec, [facility] [address] [id number] [address] [place] [address], [place] [address] Dec, [facility] [address] [id number] [address] [place] [address], [place] [address] Nov, [facility] [address] [id number] [address] [place] [address], [place] [address] Nov, [facility] [address] [id number] [address] [place] [address], [place] [address] Nov, [facility] [address] [id number] [address] [place] [address], [place] [address] Nov, [facility] [address] [id number] [address] [place] [address], [place] [address] Nov, [facility] [address] [id number] [address] [place] [address], [place] [address] Nov, [facility] [address] [id number] [address] [place] [address], [place] [address] Nov, [facility] [address] [id number] [address] [place] [address], [place] [address] Nov, [facility] [address] [id number] [address] [place] [address], [place] [address] Nov, [facility] [address] [id number] [address] [place] [address], [place] [address] Nov, [facility] [address] [id number] [address] [place] [address], [place] [address] Nov, [facility] [address] [id number] [address] [place] [address], [place] [address] Nov, [facility] [address] [id number] [address] [place] [address], [place] [address] Nov, [facility] [address] [id number] [address] [place] [address], [place] [address] Nov, [facility] [address] [id number] [address] [place] [address], [place] [address] October, [facility] [address] [id number] [address] [place] [address], [place] [address] October, [facility] [address] [id number] [address] [place] [address], [place] [address] October, [facility] [address] [id number] [address] [place] [address], [place] [address] October, [facility] [address] [id number] [address] [place] [address], [place] [address] October, [facility] [address] [id number] [address] [place] [address], [place] [address] October, [facility] [address] [id number] [address] [place] [address], [place] [address] October, [facility] [address] [id number] [address] [place] [address], [place] [address] October, [facility] [address] [id number] [address] [place] [address], [place] [address] October, [facility] [address] [id number] [address] [place] [address], [place] [address] October, [facility] [address] [id number] [address] [place] [address], [place] [address] October, [facility] [address] [id number] [address] [place] [address], [place] [address] October, [facility] [address] [id number] [address] [place] [address], [place] [address] Sep, [facility] [address] [id number] [address] [place] [address], [place] [address] Sep, [facility] [address] [id number] [address] [place] [address], [place] [address] Sep, [facility] [address] [id number] [address] [place] [address], [place] [address] Sep, [facility] [address] [id number] [address] [place] [address], [place] [address] Sep, [facility] [address] [id number] [address] [place] [address], [place] [address] Sep, [facility] [address] [id number] [address] [place] [address], [place] [address] Aug, [facility] [address] [id number] [address] [place] [address], [place] [address] Aug, [facility] [address] [id number] [address] [place] [address], [place] [address] Aug, [facility] [address] [id number] [address] [place] [address], [place] [address] Aug, [facility] [address] [id number] [address] [place] [address], [place] [address] Aug, [facility] [address] [id number] [address] [place] [address], [place] [address] Aug, [facility] [address] [id number] [address] [place] [address], [place] [address] Jul, [facility] [address] [id number] [address] [place] [address], [place] [address] Jul, [facility] [address] [id number] [address] [place] [address], [place] [address] Jul, [facility] [address] [id number] [address] [place] [address], [place] [address] Jul, [facility] [address] [id number] [address] [place] [address], [place] [address] Jul, [facility] [address] [id number] [address] [place] [address], [place] [address] Jul, [facility] [address] [id number] [address] [place] [address], [place] [address] Jul, [facility] [address] [id number] [address] [place] [address], [place] [address] Jul, [facility] [address] [id number] [address] [place] [address], [place] [address] Jul, [facility] [address] [id number] [address] [place] [address], [place] [address] Jul, [facility] [address] [id number] [address] [place] [address], [place] [address] Jun, [facility] [address] [id number] [address] [place] [address], [place] [address] Jun, [facility] [address] [id number] [address] [place] [address], [place] [address] Jun, [facility] [address] [id number] [address] [place] [address], [place] [address] Jun, [facility] [address] [id number] [address] [place] [address], [place] [address] Jun, [facility] [address] [id number] [address] [place] [address], [place] [address] Jun, [facility] [address] [id number] [address] [place] [address], [place] [address] Jun, [facility] [address] [id number] [address] [place] [address], [place] [address] Jun, [facility] [address] [id number] [address] [place] [address], [place] [address] May, [facility] [address] [id number] [address] [place] [address], [place] [address] May, [facility] [address] [id number] [address] [place] [address], [place] [address] May, [facility] [address] [id number] [address] [place] [address], [place] [address] May, [facility] [address] [id number] [address] [place] [address], [place] [address] May, [facility] [address] [id number] [address] [place] [address], [place] [address] May, [facility] [address] [id number] [address] [place] [address], [place] [address] May, [facility] [address] [id number] [address] [place] [address], [place] [address] May, [facility] [address] [id number] [address] [place] [address], [place] [address] Apr, [facility] [address] [id number] [address] [place] [address] Apr, [facility] [address] [id number] [address] [place] [address], [place] [address] Apr, [facility] [address] [id number] [address] [place] [address] Apr, [facility] [address] [id number] [address] [place] [address] Apr, [facility] [address] [id number] [address] [place] [address] Apr, [facility] [address] [id number] [address] [place] [address] Mar, [facility] [address] [id number] [address] [place] [address] Mar, [facility] [address] [id number] [address] [place] [address] Mar, [facility] [address] [id number] [address] [place] [address] Mar, [facility] [address] [id number] [address] [place] [address], [place] [address] Mar, [facility] [address] [id number] [address] [place] [address], [place] [address] Mar, [facility] [address] [id number] [address] [place] [address], [place] [address] Mar, [facility] [address] [id number] [address] [place] [address], [place] [address] 30 Feb, 2013 [facility] [address] [id number] [address] [place] [address], [place] [address] 30 Feb, 2013 [facility] [address] [id number] [address] [place] [address], [place] [address] Feb, [facility] [address] [id number] [address] [place] [address], [place] [address] Feb, [facility] [address] [id number] [address] [place] [address], [place] [address] Feb, [facility] [address] [id number] [address] [place] [address], [place] [address] Feb, [facility] [address] [id number] [address] [place] [address], [place] [address] Jan, [facility] [address] [id number] [address] [place] [address], [place] [address] Jan, [facility] [address] [id number] [address] [place] [address], [place] [address] Jan, [facility] [address] [id number] [address] [place] [address], [place] [address] Jan, [facility] [address] [id number] [address] [place] [address], [place] [address] Jan, [facility] [address] [id number] [address] [place] [address], [place] [address] Jan, [facility] [address] [id number] [address] [place] [address], [place] [address] Jan, [facility] [address] [id number] [address] [place] [address], [place] [address] Jan, [facility] [address] [id number] [address] [place] [address], [place] [address] Jan, [facility] [address] [id number] [address] [place] [address], [place] [address] Dec, [facility] [address] [id number] [address] [place] [address], [place] [address] Dec, [facility] [address] [id number] [address] [place] [address], [place] [address] Dec, [facility] [address] [id number] [address] [place] [address], [place] [address] Dec, [facility] [address] [id number] [address] [place] [address], [place] [address] Dec, [facility] [address] [id number] [address] [place] [address], [place] [address] Dec, [facility] [address] [id number] [address] [place] [address], [place] [address] Dec, [facility] [address] [id number] [address] [place] [address], [place] [address] Dec, [facility] [address] [id number] [address] [place] [address], [place] [address] Dec, [facility] [address] [id number] [address] [place] [address], [place] [address] Dec, [facility] [address] [id number] [address] [place] [address], [place] [address] Dec, [facility] [address] [id number] [address] [place] [address], [place] [address] Dec, [facility] [address] [id number] [address] [place] [address], [place] [address] Dec, [facility] [address] [id number] [address] [place] [address], [place] [address] Nov, [facility] [address] [id number] [address] [place] [address], [place] [address] Nov, [facility] [address] [id number] [address] [place] [address], [place] [address] Nov, [facility] [address] [id number] [address] [place] [address], [place] [address] Nov, [facility] [address] [id number] [address] [place] [address], [place] [address] October, [facility] [address] [id number] [address] [place] [address], [place] [address] October, [facility] [address] [id number] [address] [place] [address], [place] [address] October, [facility] [address] [id number] [address] [place] [address], [place] [address] October, [facility] [address] [id number] [address] [place] [address], [place] [address] October, [facility] [address] [id number] [address] [place] [address], [place] [address] October, [facility] [address] [id number] [address] [place] [address], [place] [address] Sep, [facility] [address] [id number] [address] [place] [address], [place] [address] Sep, [facility] [address] [id number] [address] [place] [address], [place] [address] Sep, [facility] [address] [id number] [address] [place] [address], [place] [address] Sep, [facility] [address] [id number] [address] [place] [address], [place] [address] Sep, [facility] [address] [id number] [address] [place] [address], [place] [address] 16 Sep, 2012 [facility] [address] [id number] [address] [place] [address], [place] [address] 12 Sep, 2012 [facility] [address] [id number] [address] [place] [address], [place] [address] 08 Sep, 2012 [facility] [address] [id number] [address] [place] [address], [place] [address] Sep, [facility] [address] [id number] [address] [place] [address], [place] [address] Sep, [facility] [address] [id number] [address] [place] [address], [place] [address] Sep, [facility] [address] [id number] [address] [place] [address], [place] [address] Aug, [facility] [address] [id number] [address] [place] [address], [place] [address] 25 Aug, 2012 [facility] [address] [id number] [address] [place] [address], [place] [address] 25 Aug, 2012 [facility] [address] [id number] [address] [place] [address], [place] [address] 21 Aug, 2012 [facility] [address] [id number] [address] [place] [address], [place] [address] 19 Aug, 2012 [facility] [address] [id number] [address] [place] [address], [place] [address] 18 Aug, 2012 [facility] [address] [id number] [address] [place] [address], [place] [address] 17 Aug, 2012 [facility] [address] [id number] [address] [place] [address], [place] [address] 15 Aug, 2012 [facility] [address] [id number] [address] [place] [address], [place] [address] 15 Aug, 2012 [facility] [address] [id number] [address] [place] [address], [place] [address] 11 Aug, 2012 [facility] [address] [id number] [address] [place] [address], [place] [address] Aug, [facility] [address] [id number] [address] [place] [address], [place] [address] Aug, [facility] [address] [id number] [address] [place] [address], [place] [address] Jul, [facility] [address] [id number] [address] [place] [address], [place] [address] Jul, [facility] [address] [id number] [address] [place] [address], [place] [address] Jul, [facility] [address] [id number] [address] [place] [address], [place] [address] Jul, [facility] [address] [id number] [address] [place] [address], [place] [address] Jul, [facility] [address] [id number] [address] [place] [address] Jul, [facility] [address] [id number] [address] [place] [address], [place] [address] Jul, [facility] [address] [id number] [address] [place] [address] Jul, [facility] [address] [id number] [address] [place] [address] Jul, [facility] [address] [id number] [address] [place] [address] Jul, [facility] [address] [id number] [address] [place] [address] May, [facility] [place] [id number] [id number] [place] [id number] May, [facility] [address] [id number] [address] [place] [address] May, [facility] [address] [id number] [address] [place] [address] May, [facility] [address] [facility] [id number] [address] [place] [address] May, [facility] [address] [facility] [id number] [address] [place] [address] Apr, [facility] [address] [id number] [place] [id number] Apr, [facility] [address] [id number] [address] [place] [address] Apr, [facility] [address] [facility] [id number] [address] [place] [address] Mar, [facility] [address] [id number] [place] [id number] Mar, [facility] [address] [facility] [id number] [address] [place] [phone] Mar, [facility] [address] [id number] [place] [id number] Feb, [facility] [address] [facility] [id number] [address] [place] [phone] Feb, [facility] [address] [facility] [id number] [address] [place] [id number] Feb, [facility] [address] [id number] [place] [id number] Feb, [facility] [address] [id number] [place] [id number] Feb, [facility] [address] [id number] [place] [id number] Jan, [facility] [address] [id number] [address] [place] [address], [place] [address] Jan, [facility] [place] [address] [id number] [place] [id number] Jan, [facility] [place] [address] [id number] [place] [id number] Jan, [facility] [address] [id number] [place] [id number] Jan, [facility] [address] [id number] [address] [place] [address], [place] [address] Jan, [facility] [address] [id number] [address] [place] [address], [place] [id number] Jan, [facility] [address] [facility] [id number] [address] [place] [address], [place] [address] Aug, [facility] [address] [id number] [place] [id number] Aug, [facility] [address] [facility] [id number] [address] [place] [address], [place] [address] Jul, [facility] [address] [facility] [id number] [address] [place] [address], [place] [address] Jul, [facility] [address] [facility] [id number] [address] [place] [address], [place] [address] Jul, [facility] [address] [id number] [place] [id number] Jul, [facility] [address] [facility] [id number] [address] [place] [address], [place] [address] Jul, [facility] [address] [id number] [place] [id number] Jul, [facility] [address] [facility] [id number] [address] [place] [address], [place] [address] Jul, [facility] [address] [id number] [place] [id number] Jul, [facility] [address] [id number] [place] [id number] Jul, [facility] [address] [id number] [place] [id number] Jul, [facility] [address] [facility] [id number] [address] [place] [address], [place] [address] May, [facility] [address] [facility] [id number] [address] [place] [id number] 20 May, 2011 [facility] [address] [id number] [address] [place] [id number] May, [facility] [address] [id number] [address] [place] [phone] Apr, [facility] [address] [id number] [address] [place] [phone] Jan, [facility] [address] [id number] [address] [place] [id number] Jan, [facility] [address] [id number] [address] [place] [id number] Dec, [facility] [address] [id number] [address] [place] [id number] Dec, [facility] [address] [id number] [address] [place] [id number] May, [facility] [address] [id number] [address] [place] [id number] Mar, [facility] [address] [id number] [address] [place] [phone] Mar, [facility] [address] [id number] [address] [place] [id number] 14 Jan, 2009 IMMUNIZATIONS No Known Immunizations [...]
--- OUTSIDE RECORDS SUMMARY | 2020-01-28 12:20 | XMS REPORT ---
Author Author Heydi Candelario Doctor Organization [facility] Address Unknown Phone Unavailable Care Team Providers Care Instructor Of Education Name Role Phone Migration, Doctor Unavailable Unavailable PROBLEMS Type Condition ICD9-CM Code DNX95-AL Code Onset Dates Condition S tatus SNOMED Code Problem Chronic pain syndrome G89.4 Active 130925289 Problem Sore throat J02.9 Active 06976881 3 Problem Choriocarcinoma C58 Active 1881 53230 Problem care home 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 Z79.01 Active 212971961 Problem History of venous thromboembolism V12.51 Active 673110209 Problem Cellulitis of unspecified part of limb L03.119 Active 919280647 Problem Gastroesophageal reflux disease without esophagitis K21.9 Active 742323280 Problem History of pulmonary embolism Z86.711 Active 992842541 Problem Pseudotumor cerebri G93.2 Active 81939176 Problem History of DVT (deep vein thrombosis) Z86.718 Active [id number] ALLERGIES No Information ENCOUNTERS Encounter Location Date Diagnosis [place] [address] [address] [facility] [id number] [address] [place] [address] Apr, 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 [place] [id number] [facility] [id number] [address] [place] [address] Apr, 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 [place] [id number] [facility] [id number] [address] [place] [address] Apr, Cellulitis of unspecified pa rt of limb L03.119 ; Allergic contact dermatitis due to adhesives L23.1 and Chronic pain syndrome G89.4 [facility] [place] [address] [facility] [id number] [address] [place] [address] Apr, [place] [address] [facility] [id number] [address] [place] [address] Apr, care home 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.01 ; Cellulitis of unspecified part of limb L03.119 ; Chronic pain syndrome G89.4 and Anxiety F41.9 [place] [address] [address] [place] [id number] [address] [place] [address] 16 Apr, 2015 [place] [address] [address] [place] [id number] [place] [address] Apr, [place] [address] [address] Mar, [place] [address] [address] [place] [id number] [place] [address] Mar, [place] [address] [address] Mar, Sore throat J02.9 ; Gastroes ophageal reflux disease without esophagitis K21.9 ; Pseudotumor cerebri G93.2 ; Chronic pain syndrome G89.4 ; Choriocarcinoma C58 ; History of pulmonary embolism Z86.711 ; History of DVT (deep vein thrombosis) Z86.718 ; Anxiety F41.9 and Tachycardia R00.0 [place] [address] [address] Feb, Anxiety 300.00 and Chronic p ain 338.29 [place] [address] [address] [place] [id number] [address] [place] [address] Feb, [place] [id number] [place] [address] Feb, [place] [address] [address] [place] [id number] [place] [address] Jan, care home 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 therapy V58.61 and Dysuria 788.1 [place] [address] [address] [place] [id number] [address] [place] [address] Jan, Dysuria 788.1 [place] [address] [address] [place] [id number] [place] [address] Jan, Anxiety 300.00 and Chronic p ain 338.29 [place] [address] [address] Jan, [facility] [place] [address] [address] Jan, [place] [address] [address] Jan, [place] [address] [address] Dec, Weakness 780.79 [place] [address] [address] Dec, 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 [place] [address] [address] Dec, Palpitations 785.1 ; Tremor 781.0 ; Weakness 780.79 ; care home 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 therapy V58.61 and Yeast vaginitis 112.1 [place] [address] [address] Dec, [place] [address] [address] Dec, Cervicalgia 723.1 ; Tachycar yoseph 785.0 ; Pseudotumor cerebri 348.2 and History of venous thromboembolism V12.51 [place] [address] [address] [place] [id number] [address] [place] [address] Nov, [place] [address] [address] Nov, [place] [address] [address] Nov, Tachycardia 785.0 ; Pseudotu mor cerebri 348.2 ; Anxiety 300.00 and History of venous thromboembolism V12.51 [facility] [address] [id number] [address] [place] [address], [place] [address] Nov, [facility] [address] [id number] [address] [place] [address], [place] [address] 18 Nov, 2014 [facility] [address] [id number] [address] [place] [address], [place] [address] 16 Nov, 2014 [facility] [address] [id number] [address] [place] [address], [place] [address] Nov, [facility] [address] [id number] [address] [place] [address], [place] [address] Nov, [facility] [address] [id number] [address] [place] [address], [place] [address] Nov, [facility] [address] [id number] [address] [place] [address], [place] [address] Nov, [facility] [address] [id number] [address] [place] [address] October, [facility] [address] [id number] [address] [place] [address] October, [facility] [address] [id number] [address] [place] [address] October, Pain in thoracic spine 724.1 and Tachycardia 785.0 [facility] [address] [id number] [address] [place] [address] October, [facility] [address] [id number] [address] [place] [address] October, [facility] [address] [id number] [address] [place] [address] Sep, [facility] [address] [id number] [address] [place] [address] Sep, [facility] [address] [id number] [address] [place] [address] Aug, [facility] [address] [id number] [address] [place] [address], [place] [address] Aug, [facility] [address] [id number] [address] [place] [address], [place] [address] Aug, [facility] [address] [id number] [address] [place] [address], [place] [address] 17 Aug, 2014 [facility] [address] [id number] [address] [place] [address], [place] [address] Aug, [facility] [address] [id number] [address] [place] [address], [place] [address] 16 Aug, 2014 [facility] [address] [id number] [address] [place] [address], [place] [address] Aug, [facility] [address] [id number] [address] [place] [address], [place] [address] Aug, [facility] [address] [id number] [address] [place] [address], [place] [address] Aug, 2014 [facility] [address] [id number] [address] [place] [address], [place] [address] Aug, [facility] [address] [id number] [address] [place] [address], [place] [address] Aug, [facility] [address] [id number] [address] [place] [address], [place] [address] Aug, [facility] [address] [id number] [address] [place] [address], [place] [address] Jul, 2014 [facility] [address] [id number] [address] [place] [address], [place] [address] Jul, 2014 [facility] [address] [id number] [address] [place] [address], [place] [address] Jul, 2014 [facility] [address] [id number] [address] [place] [address], [place] [address] Jul, 2014 [facility] [address] [id number] [address] [place] [address], [place] [address] b, 2014 [facility] [address] [id number] [address] [place] [address], [place] [address] 23 Jul, 2014 [facility] [address] [id number] [address] [place] [address], [place] [address] 23 Jul, 2014 [facility] [address] [id number] [address] [place] [address], [place] [address] 23 Jul, 2014 [facility] [address] [id number] [address] [place] [address], [place] [address] 20 Jul, 2014 [facility] [address] [id number] [address] [place] [address], [place] [address] 20 Jul, 2014 [facility] [address] [id number] [address] [place] [address], [place] [address] 19 Jul, 2014 [facility] [address] [id number] [address] [place] [address], [place] [address] 19 Jul, 2014 [facility] [address] [id number] [address] [place] [address], [place] [address] 17 Jul, 2014 [facility] [address] [id number] [address] [place] [address], [place] [address] 17 Jul, 2014 [facility] [address] [id number] [address] [place] [address], [place] [address] 16 Jul, 2014 [facility] [address] [id number] [address] [place] [address], [place] [address] 16 Jul, 2014 [facility] [address] [id number] [address] [place] [address], [place] [address] 16 Jul, 2014 [facility] [address] [id number] [address] [place] [address], [place] [address] 16 Jul, 2014 [facility] [address] [id number] [address] [place] [address], [place] [address] 13 Jul, 2014 [facility] [address] [id number] [address] [place] [address], [place] [address] Jul, 2014 [facility] [address] [id number] [address] [place] [address], [place] [address] Jul, 2014 [facility] [address] [id number] [address] [place] [address], [place] [address] Jul, 2014 [facility] [address] [id number] [address] [place] [address], [place] [address] Jul, 2014 [facility] [address] [id number] [address] [place] [address], [place] [address] Jul, 2014 [facility] [address] [id number] [address] [place] [address], [place] [address] Jul, [facility] [address] [id number] [address] [place] [address], [place] [address] Jul, [facility] [address] [id number] [address] [place] [address], [place] [address] Jul, [facility] [address] [id number] [address] [place] [address], [place] [address] Jul, [facility] [address] [id number] [address] [place] [address], [place] [address] Jul, [facility] [address] [id number] [address] [place] [address], [place] [address] Jul, [facility] [address] [id number] [address] [place] [address], [place] [address] Jun, [facility] [address] [id number] [address] [place] [address], [place] [address] Jun, [facility] [address] [id number] [address] [place] [address], [place] [address] Jun, [facility] [address] [id number] [address] [place] [address], [place] [address] Jun, [facility] [address] [id number] [address] [place] [address], [place] [address] Jun, [facility] [address] [id number] [address] [place] [address], [place] [address] Jun, [facility] [address] [id number] [address] [place] [address], [place] [address] Jun, [facility] [address] [id number] [address] [place] [address], [place] [address] Jun, [facility] [address] [id number] [address] [place] [address], [place] [address] Jun, [facility] [address] [id number] [address] [place] [address], [place] [address] Jun, [facility] [address] [id number] [address] [place] [address], [place] [address] Jun, [facility] [address] [id number] [address] [place] [address], [place] [address] Jun, [facility] [address] [id number] [address] [place] [address], [place] [address] Jun, [facility] [address] [id number] [address] [place] [address], [place] [address] Jun, [facility] [address] [id number] [address] [place] [address], [place] [address] Jun, [facility] [address] [id number] [address] [place] [address], [place] [address] Jun, [facility] [address] [id number] [address] [place] [address], [place] [address] Jun, [facility] [address] [id number] [address] [place] [address], [place] [address] Jun, [facility] [address] [id number] [address] [place] [address], [place] [address] Jun, [facility] [address] [id number] [address] [place] [address], [place] [address] Jun, [facility] [address] [id number] [address] [place] [address], [place] [address] May, [facility] [address] [id number] [address] [place] [address], [place] [address] May, [facility] [address] [id number] [address] [place] [address], [place] [address] May, [facility] [address] [id number] [address] [place] [address], [place] [address] May, [facility] [address] [id number] [address] [place] [address], [place] [address] May, [facility] [address] [id number] [address] [place] [address], [place] [address] May, [facility] [address] [id number] [address] [place] [address], [place] [address] May, [facility] [address] [id number] [address] [place] [address], [place] [address] May, [facility] [address] [id number] [address] [place] [address], [place] [address] May, [facility] [address] [id number] [address] [place] [address], [place] [address] May, [facility] [address] [id number] [address] [place] [address], [place] [address] May, [facility] [address] [id number] [address] [place] [address], [place] [address] 18 May, 2014 [facility] [address] [id number] [address] [place] [address], [place] [address] 18 May, 2014 [facility] [address] [id number] [address] [place] [address], [place] [address] 17 May, 2014 [facility] [address] [id number] [address] [place] [address], [place] [address] 16 May, 2014 [facility] [address] [id number] [address] [place] [address], [place] [address] 16 May, 2014 [facility] [address] [id number] [address] [place] [address], [place] [address] 15 May, 2014 [facility] [address] [id number] [address] [place] [address], [place] [address] 15 May, 2014 [facility] [address] [id number] [address] [place] [address], [place] [address] May, [facility] [address] [id number] [address] [place] [address], [place] [address] May, [facility] [address] [id number] [address] [place] [address], [place] [address] May, [facility] [address] [id number] [address] [place] [address], [place] [address] May, [facility] [address] [id number] [address] [place] [address], [place] [address] May, [facility] [address] [id number] [address] [place] [address], [place] [address] May, [facility] [address] [id number] [address] [place] [address], [place] [address] May, [facility] [address] [id number] [address] [place] [address], [place] [address] May, [facility] [address] [id number] [address] [place] [address], [place] [address] May, [facility] [address] [id number] [address] [place] [address], [place] [address] May, [facility] [address] [id number] [address] [place] [address], [place] [address] May, [facility] [address] [id number] [address] [place] [address], [place] [address] May, [facility] [address] [id number] [address] [place] [address], [place] [address] May, [facility] [address] [id number] [address] [place] [address], [place] [address] May, [facility] [address] [id number] [address] [place] [address], [place] [address] May, [facility] [address] [id number] [address] [place] [address], [place] [address] May, [facility] [address] [id number] [address] [place] [address], [place] [address] Apr, [facility] [address] [id number] [address] [place] [address], [place] [address] Apr, [facility] [address] [id number] [address] [place] [address], [place] [address] Apr, [facility] [address] [id number] [address] [place] [address], [place] [address] Apr, [facility] [address] [id number] [address] [place] [address], [place] [address] Apr, [facility] [address] [id number] [address] [place] [address], [place] [address] Apr, [facility] [address] [id number] [address] [place] [address], [place] [address] Apr, [facility] [address] [id number] [address] [place] [address], [place] [address] Apr, [facility] [address] [id number] [address] [place] [address], [place] [address] Apr, [facility] [address] [id number] [address] [place] [address], [place] [address] Apr, [facility] [address] [id number] [address] [place] [address], [place] [address] Mar, [facility] [address] [id number] [address] [place] [address], [place] [address] Mar, [facility] [address] [id number] [address] [place] [address], [place] [address] Mar, [facility] [address] [id number] [address] [place] [address], [place] [address] 31 Mar, 2013 [facility] [address] [id number] [address] [place] [address], [place] [id number] 30 Mar, 2013 [facility] [address] [id number] [address] [place] [address], [place] [id number] 30 Mar, 2014 [facility] [address] [id number] [address] [place] [address], [place] [id number] Mar, 2013 [facility] [address] [id number] [address] [place] [address], [place] [id number] 17 Mar, 2013 [facility] [address] [id number] [address] [place] [address], [place] [address] 15 Mar, 2014 [facility] [address] [id number] [address] [place] [id number] 15 Mar, 2014 [facility] [address] [id number] [address] [place] [address], [place] [id number] 15 Mar, 2014 [facility] [address] [id number] [address] [place] [id number] Mar, [facility] [address] [id number] [address] [place] [address], [place] [id number] Mar, [facility] [address] [id number] [address] [place] [id number] Mar, [facility] [address] [id number] [address] [place] [id number] Mar, [facility] [address] [id number] [address] [place] [id number] Mar, 2013 [facility] [address] [id number] [address] [place] [address], [place] [address] Mar, [facility] [address] [id number] [address] [place] [id number] Mar, [facility] [address] [id number] [address] [place] [id number] Mar, 2013 [facility] [address] [id number] [address] [place] [address], [place] [id number] 02 Mar, 2013 [facility] [address] [id number] [address] [place] [address], [place] [id number] 05 Sep, 2013 [facility] [address] [id number] [address] [place] [address], [place] [id number] 05 Sep, 2013 [facility] [address] [id number] [address] [place] [address], [place] [id number] 04 Sep, 2013 [facility] [address] [id number] [address] [place] [address], [place] [id number] 04 Sep, 2013 [facility] [address] [id number] [address] [place] [address], [place] [id number] 03 Feb, 2013 [facility] [address] [id number] [address] [place] [address], [place] [address] Feb, 2013 [facility] [address] [id number] [address] [place] [address], [place] [address] Feb, 2013 [facility] [address] [id number] [address] [place] [address], [place] [id number] Feb, 2013 [facility] [address] [id number] [address] [place] [address], [place] [id number] Feb, 2013 [facility] [address] [id number] [address] [place] [address], [place] [id number] Feb, 2013 [facility] [address] [id number] [address] [place] [address], [place] [id number] Jan, [facility] [address] [id number] [address] [place] [address], [place] [id number] Jan, [facility] [address] [id number] [address] [place] [address], [place] [id number] Jan, [facility] [address] [id number] [address] [place] [address], [place] [id number] Jan, [facility] [address] [id number] [address] [place] [address], [place] [address] Jan, [facility] [address] [id number] [address] [place] [address], [place] [address] Jan, [facility] [address] [id number] [address] [place] [address], [place] [id number] Jan, [facility] [address] [id number] [address] [place] [address], [place] [address] Jan, [facility] [address] [id number] [address] [place] [address], [place] [id number] Jan, [facility] [address] [id number] [address] [place] [address], [place] [address] Jan, [facility] [address] [id number] [address] [place] [address], [place] [id number] Jan, [facility] [address] [id number] [address] [place] [address], [place] [id number] Jan, [facility] [address] [id number] [address] [place] [address], [place] [id number] Dec, [facility] [address] [id number] [address] [place] [address], [place] [address] Dec, [facility] [address] [id number] [address] [place] [address], [place] [id number] Dec, [facility] [facility] [address] [id number] [address] [place] [address], [place] [address] Dec, [facility] [address] [id number] [address] [place] [address], [place] [address] Dec, [facility] [address] [id number] [address] [place] [address], [place] [address] Dec, [facility] [address] [id number] [address] [place] [address], [place] [address] Dec, [facility] [address] [id number] [address] [place] [address], [place] [address] Dec, [facility] [address] [id number] [address] [place] [address], [place] [address] Dec, [facility] [address] [id number] [address] [place] [address], [place] [address] Dec, [facility] [address] [id number] [address] [place] [address], [place] [address] Dec, [facility] [address] [id number] [address] [place] [address], [place] [address] Dec, [facility] [address] [id number] [address] [place] [address], [place] [address] Nov, [facility] [address] [id number] [address] [place] [address], [place] [address] Nov, [facility] [address] [id number] [address] [place] [address], [place] [address] Nov, [facility] [address] [id number] [address] [place] [address], [place] [address] Nov, [facility] [address] [id number] [address] [place] [address], [place] [address] Nov, [facility] [address] [id number] [address] [place] [address], [place] [address] Nov, [facility] [address] [id number] [address] [place] [address], [place] [address] Nov, [facility] [address] [id number] [address] [place] [address], [place] [address] Nov, [facility] [address] [id number] [address] [place] [address] Nov, [facility] [address] [id number] [address] [place] [address], [place] [address] Nov, [facility] [address] [id number] [address] [place] [address], [place] [address] Nov, [facility] [address] [id number] [address] [place] [address], [place] [address] Nov, [facility] [address] [id number] [address] [place] [address], [place] [address] Nov, [facility] [address] [id number] [address] [place] [address], [place] [address] Nov, [facility] [address] [id number] [address] [place] [address], [place] [address] October, [facility] [address] [id number] [address] [place] [address], [place] [address] October, [facility] [address] [id number] [address] [place] [address], [place] [address] October, [facility] [address] [id number] [address] [place] [address], [place] [address] October, [facility] [address] [id number] [address] [place] [address], [place] [address] October, [facility] [address] [id number] [address] [place] [address], [place] [address] October, [facility] [address] [id number] [address] [place] [address], [place] [address] October, [facility] [address] [id number] [address] [place] [address], [place] [address] October, [facility] [address] [id number] [address] [place] [address], [place] [address] October, [facility] [address] [id number] [address] [place] [address], [place] [address] October, [facility] [address] [id number] [address] [place] [address], [place] [address] October, [facility] [address] [id number] [address] [place] [address], [place] [address] October, [facility] [address] [id number] [address] [place] [address], [place] [address] Sep, [facility] [address] [id number] [address] [place] [address], [place] [address] Sep, [facility] [address] [id number] [facility] [place] [address] Sep, [facility] [address] [id number] [address] [place] [address], [place] [address] Sep, [facility] [address] [id number] [address] [place] [address], [place] [address] Sep, [facility] [address] [id number] [address] [place] [address], [place] [address] Sep, [facility] [address] [id number] [address] [place] [address], [place] [address] Aug, [facility] [address] [id number] [address] [place] [address], [place] [address] Aug, [facility] [address] [id number] [address] [place] [address], [place] [address] Aug, [facility] [address] [id number] [address] [place] [address], [place] [address] Aug, [facility] [address] [id number] [address] [place] [address], [place] [address] Aug, [facility] [address] [id number] [address] [place] [address], [place] [address] Aug, [facility] [address] [id number] [address] [place] [address], [place] [address] Jul, [facility] [address] [id number] [address] [place] [address], [place] [address] Jul, [facility] [address] [id number] [address] [place] [address], [place] [address] Jul, [facility] [address] [id number] [address] [place] [address], [place] [address] Jul, [facility] [address] [id number] [address] [place] [address], [place] [address] Jul, [facility] [address] [id number] [address] [place] [address], [place] [address] 13 Jul, 2013 [facility] [address] [id number] [address] [place] [address], [place] [address] Jul, [facility] [address] [id number] [address] [place] [address], [place] [address] Jul, [facility] [address] [id number] [address] [place] [address], [place] [address] Jul, [facility] [address] [id number] [address] [place] [address], [place] [address] Jul, [facility] [address] [id number] [address] [place] [address], [place] [address] Jun, [facility] [address] [id number] [address] [place] [address], [place] [address] Jun, [facility] [address] [id number] [address] [place] [address], [place] [address] Jun, [facility] [address] [id number] [address] [place] [address], [place] [address] Jun, [facility] [address] [id number] [address] [place] [address], [place] [address] Jun, [facility] [address] [id number] [address] [place] [address], [place] [address] Jun, [facility] [address] [id number] [address] [place] [address], [place] [address] Jun, [facility] [address] [id number] [address] [place] [address], [place] [address] Jun, [facility] [address] [id number] [address] [place] [address], [place] [address] May, [facility] [address] [id number] [address] [place] [address], [place] [address] May, [facility] [address] [id number] [address] [place] [address] [address] May, [facility] [address] [id number] [address] [place] [address], [place] [address] May, [facility] [address] [id number] [address] [place] [address], [place] [address] May, [facility] [address] [id number] [address] [place] [address], [place] [address] May, [facility] [address] [id number] [address] [place] [address], [place] [address] May, [facility] [address] [id number] [address] [place] [address], [place] [address] May, [facility] [address] [id number] [address] [place] [address], [place] [address] Apr, [facility] [address] [id number] [address] [place] [address], [place] [address] Apr, [facility] [address] [id number] [address] [place] [address] Apr, [facility] [address] [id number] [address] [place] [address] Apr, [facility] [address] [id number] [address] [place] [address] Apr, [facility] [address] [id number] [address] [place] [address] Apr, [facility] [address] [id number] [address] [place] [address] Mar, [facility] [address] [id number] [address] [place] [address] Mar, [facility] [address] [id number] [address] [place] [address] Mar, [facility] [address] [id number] [address] [place] [address] Mar, [facility] [address] [id number] [address] [place] [address], [place] [address] Mar, [facility] [address] [id number] [address] [place] [address], [place] [address] Mar, [facility] [address] [id number] [address] [place] [address], [place] [address] Mar, [facility] [address] [id number] [address] [place] [address], [place] [address] 30 Feb, 2013 [facility] [address] [id number] [address] [place] [address], [place] [address] 30 Feb, 2013 [facility] [address] [id number] [address] [place] [address], [place] [address] 27 Feb, 2013 [facility] [address] [id number] [address] [place] [address], [place] [address] Feb, [facility] [address] [id number] [address] [place] [address], [place] [address] Feb, [facility] [address] [id number] [address] [place] [address], [place] [address] Feb, [facility] [address] [id number] [address] [place] [address], [place] [address] Jan, [facility] [address] [id number] [address] [place] [address], [place] [address] Jan, [facility] [address] [id number] [address] [place] [address], [place] [address] Jan, [facility] [address] [id number] [address] [place] [address], [place] [address] Jan, [facility] [address] [id number] [address] [place] [address], [place] [address] Jan, [facility] [address] [id number] [address] [place] [address], [place] [address] Jan, [facility] [address] [id number] [address] [place] [address], [place] [address] Jan, [facility] [address] [id number] [address] [place] [address], [place] [address] Jan, [facility] [address] [id number] [address] [place] [address], [place] [address] Jan, [facility] [address] [id number] [address] [place] [address], [place] [address] Dec, [facility] [address] [id number] [address] [place] [address], [place] [address] Dec, [facility] [address] [id number] [address] [place] [address], [place] [address] Dec, [facility] [address] [id number] [address] [place] [address], [place] [address] Dec, [facility] [address] [id number] [address] [place] [address], [place] [address] Dec, [facility] [address] [id number] [address] [place] [address], [place] [address] Dec, [facility] [address] [id number] [address] [place] [address], [place] [address] Dec, [facility] [address] [id number] [address] [place] [address], [place] [address] Dec, [facility] [address] [id number] [address] [place] [address], [place] [address] Dec, [facility] [address] [id number] [address] [place] [address], [place] [address] Dec, [facility] [address] [id number] [address] [place] [address], [place] [address] Dec, [facility] [address] [id number] [address] [place] [address], [place] [address] Dec, [facility] [address] [id number] [address] [place] [address], [place] [address] Dec, [facility] [address] [id number] [address] [place] [address], [place] [address] Nov, [facility] [address] [id number] [address] [place] [address], [place] [address] Nov, [facility] [address] [id number] [address] [place] [address], [place] [address] Nov, [facility] [address] [id number] [address] [place] [address], [place] [address] Nov, [facility] [address] [id number] [address] [place] [address], [place] [address] October, [facility] [address] [id number] [address] [place] [address], [place] [address] October, [facility] [address] [id number] [address] [place] [address], [place] [address] October, [facility] [address] [id number] [address] [place] [address], [place] [address] October, [facility] [address] [id number] [address] [place] [address], [place] [address] October, [facility] [address] [id number] [address] [place] [address], [place] [address] October, [facility] [address] [id number] [address] [place] [address], [place] [address] 30 Sep, 2012 [facility] [address] [id number] [address] [place] [address], [place] [address] 29 Sep, 2012 [facility] [address] [id number] [address] [place] [address], [place] [address] 27 Sep, 2012 [facility] [address] [id number] [address] [place] [address], [place] [address] 23 Sep, 2012 [facility] [address] [id number] [address] [place] [address], [place] [address] Sep, [facility] [address] [id number] [address] [place] [address], [place] [address] 16 Sep, 2012 [facility] [address] [id number] [facility] [place] [address] 12 Sep, 2012 [facility] [address] [id number] [address] [place] [address], [place] [address] Sep, [facility] [address] [id number] [address] [place] [address], [place] [address] Sep, [facility] [address] [id number] [address] [place] [address], [place] [address] Sep, [facility] [address] [id number] [address] [place] [address], [place] [address] Sep, [facility] [address] [id number] [address] [place] [address], [place] [address] Aug, [facility] [address] [id number] [address] [place] [address], [place] [address] Aug, [facility] [address] [id number] [address] [place] [address], [place] [address] 25 Aug, 2012 [facility] [address] [id number] [address] [place] [address], [place] [address] 21 Aug, 2012 [facility] [address] [id number] [address] [place] [address], [place] [address] 19 Aug, 2012 [facility] [address] [id number] [address] [place] [address], [place] [address] 18 Aug, 2012 [facility] [address] [id number] [address] [place] [address], [place] [address] 17 Aug, 2012 [facility] [address] [id number] [address] [place] [address], [place] [address] 15 Aug, 2012 [facility] [address] [id number] [address] [place] [address], [place] [address] 15 Aug, 2012 [facility] [address] [id number] [address] [place] [address], [place] [address] 11 Aug, 2012 [facility] [address] [id number] [address] [place] [address], [place] [address] Aug, [facility] [address] [id number] [address] [place] [address], [place] [address] Aug, [facility] [address] [id number] [address] [place] [address], [place] [address] Jul, [facility] [address] [id number] [address] [place] [address], [place] [address] Jul, [facility] [address] [id number] [address] [place] [address], [place] [address] Jul, [facility] [address] [id number] [address] [place] [address], [place] [address] Jul, [facility] [address] [id number] [address] [place] [address], [place] [address] Jul, [facility] [address] [id number] [address] [place] [address], [place] [id number] Jul, [facility] [address] [id number] [address] [place] [address], [place] [id number] Jul, [facility] [address] [id number] [address] [place] [address], [place] [address] Jul, [facility] [address] [id number] [address] [place] [address], [place] [address] Jul, [facility] [address] [id number] [address] [place] [id number] Jul, [facility] [address] [id number] [address] [place] [phone] May, [facility] [address] [id number] [place] [id number] May, [facility] [address] [id number] [address] [place] [phone] May, [facility] [address] [id number] [address] [place] [address], [place] [id number] 14 May, 2012 [facility] [address] [id number] [address] [place] [address], [place] [id number] May, [facility] [address] [id number] [address] [place] [address], [place] [address] Apr, [facility] [address] [id number] [place] [id number] Apr, [facility] [address] [facility] [id number] [address] [place] [address], [place] [address] Apr, [facility] [address] [facility] [id number] [address] [place] [address], [place] [address] Mar, [facility] [address] [id number] [place] [id number] Mar, [facility] [address] [facility] [id number] [address] [place] [address], [place] [address] Mar, [facility] [place] [address] [id number] [place] [id number] Feb, [facility] [address] [facility] [id number] [address] [place] [address], [place] [address] Feb, [facility] [address] [facility] [id number] [address] [place] [address], [place] [address] Feb, [facility] [address] [id number] [place] [id number] Feb, [facility] [address] [id number] [place] [id number] Feb, [facility] [address] [id number] [place] [id number] Jan, [facility] [address] [id number] [address] [place] [address], [place] [address] Jan, [facility] [place] [address] [id number] [place] [id number] Jan, [facility] [address] [id number] [place] [id number] Jan, [facility] [address] [id number] [place] [id number] Jan, [facility] [address] [id number] [address] [place] [address], [place] [phone] Jan, [facility] [address] [facility] [id number] [address] [place] [address], [place] [address] Jan, [facility] [address] [facility] [id number] [address] [place] [address], [place] [address] Aug, [facility] [place] [address] [facility] [id number] [place] [id number] Aug, [facility] [address] [facility] [id number] [address] [place] [address], [place] [address] Jul, [facility] [address] [facility] [id number] [address] [place] [address], [place] [address] Jul, [facility] [address] [facility] [id number] [address] [place] [address], [place] [phone] Jul, [facility] [place] [address] [facility] [id number] [place] [id number] Jul, [facility] [address] [facility] [id number] [address] [place] [address], [place] [address] Jul, [facility] [address] [facility] [id number] [place] [id number] Jul, [facility] [address] [facility] [id number] [address] [place] [address], [place] [address] Jul, [facility] [place] [address] [id number] [place] [id number] Jul, [facility] [place] [address] [id number] [place] [id number] Jul, [facility] [place] [address] [id number] [place] [id number] Jul, [facility] [address] [facility] [id number] [address] [place] [address], [place] [id number] May, [facility] [address] [facility] [id number] [address] [place] [address], [place] [phone] May, [facility] [address] [id number] [address] [place] [phone] May, [facility] [place] [address] [id number] [address] [place] [id number] Apr, [facility] [place] [address] [id number] [address] [place] [id number] Jan, [facility] [place] [address] [id number] [address] [place] [id number] Jan, [facility] [place] [address] [id number] [address] [place] [id number] Dec, [facility] [place] [address] [id number] [address] [place] [id number] Dec, [facility] [place] [address] [id number] [address] [place] [id number] 16 May, 2009 [facility] [place] [address] [id number] [address] [place] [phone] Mar, [facility] [place] [address] [id number] [address] [place] [phone] Mar, [facility] [place] [facility] [address] [id number] [place] [id number] Jan, IMMUNIZATIONS No Known Immunizations SOCIAL HISTORY [...]
--- OUTSIDE RECORDS SUMMARY | 2020-01-28 12:21 | XMS REPORT ---
Author Author Heydi Candelario Doctor Organization [facility] Address Unknown Phone Unavailable Care Team Providers Care Piano Technician Name Role Phone Migration, Doctor Unavailable Unavailable PROBLEMS Type Condition ICD9-CM Code QLM88-KC Code Onset Dates Condition S tatus SNOMED Code Problem Chronic pain syndrome G89.4 Active 272261747 Problem Sore throat J02.9 Active 87863430 3 Problem Choriocarcinoma C58 Active 1881 43507 Problem detention 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 Z79.01 Active 168538537 Problem History of venous thromboembolism V12.51 Active 004864150 Problem Cellulitis of unspecified part of limb L03.119 Active 096921124 Problem Gastroesophageal reflux disease without esophagitis K21.9 Active 722179074 Problem History of pulmonary embolism Z86.711 Active 154300226 Problem Pseudotumor cerebri G93.2 Active 30043080 Problem History of DVT (deep vein thrombosis) Z86.718 Active 088003172 ALLERGIES No Information ENCOUNTERS Encounter Location Date Diagnosis [place] [address] [address] [facility] [id number] [address] [place] [address] Apr, director acute (current) use of 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 Z79.01 [place] [address] [facility] [id number] [address] [place] [address] Apr, director acute 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.01 [place] [address] [facility] [id number] [address] [place] [address] Apr, Cellulitis of unspecified pa rt of limb L03.119 ; Allergic contact dermatitis due to adhesives L23.1 and Chronic pain syndrome G89.4 [facility] [address] [facility] [id number] [address] [place] [address] Apr, [place] [address] [facility] [id number] [address] [place] [address] Apr, detention 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.01 ; Cellulitis of unspecified part of limb L03.119 ; Chronic pain syndrome G89.4 and Anxiety F41.9 [place] [address] [address] [place] [id number] [address] [place] [address] 16 Apr, 2015 [place] [address] [place] [id number] [place] [address] Apr, [place] [address] [address] Mar, [place] [address] [place] [id number] [place] [address] Mar, [place] [address] [address] Mar, Sore throat J02.9 ; Gastroes ophageal reflux disease without esophagitis K21.9 ; Pseudotumor cerebri G93.2 ; Chronic pain syndrome G89.4 ; Choriocarcinoma C58 ; History of pulmonary embolism Z86.711 ; History of DVT (deep vein thrombosis) Z86.718 ; Anxiety F41.9 and Tachycardia R00.0 [place] [address] [address] Feb, Anxiety 300.00 and Chronic p ain 338.29 [place] [address] [place] [id number] [address] [place] [address] Feb, [place] [id number] [place] [address] Feb, [place] [address] [place] [id number] [place] [address] Jan, detention 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 therapy V58.61 and Dysuria 788.1 [place] [address] [address] [place] [id number] [address] [place] [address] Jan, Dysuria 788.1 [place] [address] [place] [id number] [place] [address] Jan, Anxiety 300.00 and Chronic p ain 338.29 [place] [address] [address] Jan, [facility] [address] [address] Jan, [place] [address] [address] Jan, [place] [address] [address] Dec, Weakness 780.79 [place] [address] [address] Dec, director acute 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 therapy V58.61 [place] [address] [address] Dec, Palpitations 785.1 ; Tremor 781.0 ; Weakness 780.79 ; detention 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 therapy V58.61 and Yeast vaginitis 112.1 [place] [address] [address] Dec, [place] [address] [address] Dec, Cervicalgia 723.1 ; Tachycar yoseph 785.0 ; Pseudotumor cerebri 348.2 and History of venous thromboembolism V12.51 [place] [address] [place] [id number] [place] [address] Nov, [place] [address] [address] Nov, [place] [address] [address] Nov, Tachycardia 785.0 ; Pseudotu mor cerebri 348.2 ; Anxiety 300.00 and History of venous thromboembolism V12.51 [facility] [address] [id number] [address] [place] [address], [place] [address] Nov, [facility] [address] [id number] [address] [place] [address], [place] [address] 18 Nov, 2014 [facility] [address] [id number] [address] [place] [address], [place] [address] 16 Nov, 2014 [facility] [address] [id number] [address] [place] [address], [place] [address] Nov, [facility] [address] [id number] [address] [place] [address], [place] [address] Nov, [facility] [address] [id number] [address] [place] [address], [place] [address] Nov, [facility] [address] [id number] [address] [place] [address], [place] [address] Nov, [facility] [address] [id number] [address] [place] [address] October, [facility] [address] [id number] [address] [place] [address] October, [facility] [address] [id number] [address] [place] [address] October, Pain in thoracic spine 724.1 and Tachycardia 785.0 [facility] [address] [id number] [address] [place] [address] October, [facility] [address] [id number] [address] [place] [address] October, [facility] [address] [id number] [address] [place] [address] Sep, [facility] [address] [id number] [address] [place] [address] Sep, [facility] [address] [id number] [address] [place] [address] Aug, [facility] [address] [id number] [address] [place] [address], [place] [address] Aug, [facility] [address] [id number] [address] [place] [address], [place] [address] Aug, [facility] [address] [id number] [address] [place] [address], [place] [address] 17 Aug, 2014 [facility] [address] [id number] [address] [place] [address], [place] [address] Aug, [facility] [address] [id number] [address] [place] [address], [place] [address] 16 Aug, 2014 [facility] [address] [id number] [address] [place] [address], [place] [address] Aug, [facility] [address] [id number] [address] [place] [address], [place] [address] Aug, [facility] [address] [id number] [address] [place] [address], [place] [address] Aug, 2014 [facility] [address] [id number] [address] [place] [address], [place] [address] Aug, [facility] [address] [id number] [address] [place] [address], [place] [address] Aug, [facility] [address] [id number] [address] [place] [address], [place] [address] Aug, [facility] [address] [id number] [address] [place] [address], [place] [address] Jul, 2014 [facility] [address] [id number] [address] [place] [address], [place] [address] Jul, 2014 [facility] [address] [id number] [address] [place] [address], [place] [address] Jul, 2014 [facility] [address] [id number] [address] [place] [address], [place] [address] Jul, 2014 [facility] [address] [id number] [address] [place] [address], [place] [address] b, 2014 [facility] [address] [id number] [address] [place] [address], [place] [address] 23 Jul, 2014 [facility] [address] [id number] [address] [place] [address], [place] [address] 23 Jul, 2014 [facility] [address] [id number] [address] [place] [address], [place] [address] 23 Jul, 2014 [facility] [address] [id number] [address] [place] [address], [place] [address] 20 Jul, 2014 [facility] [address] [id number] [address] [place] [address], [place] [address] 20 Jul, 2014 [facility] [address] [id number] [address] [place] [address], [place] [address] 19 Jul, 2014 [facility] [address] [id number] [address] [place] [address], [place] [address] 19 Jul, 2014 [facility] [address] [id number] [address] [place] [address], [place] [address] 17 Jul, 2014 [facility] [address] [id number] [address] [place] [address], [place] [address] 17 Jul, 2014 [facility] [address] [id number] [address] [place] [address], [place] [address] 16 Jul, 2014 [facility] [address] [id number] [address] [place] [address], [place] [address] 16 Jul, 2014 [facility] [address] [id number] [address] [place] [address], [place] [address] 16 Jul, 2014 [facility] [address] [id number] [address] [place] [address], [place] [address] 16 Jul, 2014 [facility] [address] [id number] [address] [place] [address], [place] [address] 13 Jul, 2014 [facility] [address] [id number] [address] [place] [address], [place] [address] Jul, 2014 [facility] [address] [id number] [address] [place] [address], [place] [address] Jul, 2014 [facility] [address] [id number] [address] [place] [address], [place] [address] Jul, 2014 [facility] [address] [id number] [address] [place] [address], [place] [address] Jul, 2014 [facility] [address] [id number] [address] [place] [address], [place] [address] Jul, 2014 [facility] [address] [id number] [address] [place] [address], [place] [address] Jul, [facility] [address] [id number] [address] [place] [address], [place] [address] Jul, [facility] [address] [id number] [address] [place] [address], [place] [address] Jul, [facility] [address] [id number] [address] [place] [address], [place] [address] Jul, [facility] [address] [id number] [address] [place] [address], [place] [address] Jul, [facility] [address] [id number] [address] [place] [address], [place] [address] Jul, [facility] [address] [id number] [address] [place] [address], [place] [address] Jun, [facility] [address] [id number] [address] [place] [address], [place] [address] Jun, [facility] [address] [id number] [address] [place] [address], [place] [address] Jun, [facility] [address] [id number] [address] [place] [address], [place] [address] Jun, [facility] [address] [id number] [address] [place] [address], [place] [address] Jun, [facility] [address] [id number] [address] [place] [address], [place] [address] Jun, [facility] [address] [id number] [address] [place] [address], [place] [address] Jun, [facility] [address] [id number] [address] [place] [address], [place] [address] Jun, [facility] [address] [id number] [address] [place] [address], [place] [address] Jun, [facility] [address] [id number] [address] [place] [address], [place] [address] Jun, [facility] [address] [id number] [address] [place] [address], [place] [address] Jun, [facility] [address] [id number] [address] [place] [address], [place] [address] Jun, [facility] [address] [id number] [address] [place] [address], [place] [address] Jun, [facility] [address] [id number] [address] [place] [address], [place] [address] Jun, [facility] [address] [id number] [address] [place] [address], [place] [address] Jun, [facility] [address] [id number] [address] [place] [address], [place] [address] Jun, [facility] [address] [id number] [address] [place] [address], [place] [address] Jun, [facility] [address] [id number] [address] [place] [address], [place] [address] Jun, [facility] [address] [id number] [address] [place] [address], [place] [address] Jun, [facility] [address] [id number] [address] [place] [address], [place] [address] Jun, [facility] [address] [id number] [address] [place] [address], [place] [address] May, [facility] [address] [id number] [address] [place] [address], [place] [address] May, [facility] [address] [id number] [address] [place] [address], [place] [address] May, [facility] [address] [id number] [address] [place] [address], [place] [address] May, [facility] [address] [id number] [address] [place] [address], [place] [address] May, [facility] [address] [id number] [address] [place] [address], [place] [address] May, [facility] [address] [id number] [address] [place] [address], [place] [address] May, [facility] [address] [id number] [address] [place] [address], [place] [address] May, [facility] [address] [id number] [address] [place] [address], [place] [address] May, [facility] [address] [id number] [address] [place] [address], [place] [address] May, [facility] [address] [id number] [address] [place] [address], [place] [address] May, [facility] [address] [id number] [address] [place] [address], [place] [address] 18 May, 2014 [facility] [address] [id number] [address] [place] [address], [place] [address] 18 May, 2014 [facility] [address] [id number] [address] [place] [address], [place] [address] 17 May, 2014 [facility] [address] [id number] [address] [place] [address], [place] [address] 16 May, 2014 [facility] [address] [id number] [address] [place] [address], [place] [address] 16 May, 2014 [facility] [address] [id number] [address] [place] [address], [place] [address] 15 May, 2014 [facility] [address] [id number] [address] [place] [address], [place] [address] 15 May, 2014 [facility] [address] [id number] [address] [place] [address], [place] [address] May, [facility] [address] [id number] [address] [place] [address], [place] [address] May, [facility] [address] [id number] [address] [place] [address], [place] [address] May, [facility] [address] [id number] [address] [place] [address], [place] [address] May, [facility] [address] [id number] [address] [place] [address], [place] [address] May, [facility] [address] [id number] [address] [place] [address], [place] [address] May, [facility] [address] [id number] [address] [place] [address], [place] [address] May, [facility] [address] [id number] [address] [place] [address], [place] [address] May, [facility] [address] [id number] [address] [place] [address], [place] [address] May, [facility] [address] [id number] [address] [place] [address], [place] [address] May, [facility] [address] [id number] [address] [place] [address], [place] [address] May, [facility] [address] [id number] [address] [place] [address], [place] [address] May, [facility] [address] [id number] [address] [place] [address], [place] [address] May, [facility] [address] [id number] [address] [place] [address], [place] [address] May, [facility] [address] [id number] [address] [place] [address], [place] [address] May, [facility] [address] [id number] [address] [place] [address], [place] [address] May, [facility] [address] [id number] [address] [place] [address], [place] [address] Apr, [facility] [address] [id number] [address] [place] [address], [place] [address] Apr, [facility] [address] [id number] [address] [place] [address], [place] [address] Apr, [facility] [address] [id number] [address] [place] [address], [place] [address] Apr, [facility] [address] [id number] [address] [place] [address], [place] [address] Apr, [facility] [address] [id number] [address] [place] [address], [place] [address] Apr, [facility] [address] [id number] [address] [place] [address], [place] [address] Apr, [facility] [address] [id number] [address] [place] [address], [place] [address] Apr, [facility] [address] [id number] [address] [place] [address], [place] [address] Apr, [facility] [address] [id number] [address] [place] [address], [place] [address] Apr, [facility] [address] [id number] [address] [place] [address], [place] [address] Mar, [facility] [address] [id number] [address] [place] [address], [place] [address] Mar, [facility] [address] [id number] [address] [place] [address], [place] [address] Mar, [facility] [address] [id number] [address] [place] [address], [place] [address] 31 Mar, 2013 [facility] [address] [id number] [address] [place] [address], [place] [address] 30 Mar, 2013 [facility] [address] [id number] [address] [place] [address], [place] [address] 30 Mar, 2014 [facility] [address] [id number] [address] [place] [address], [place] [address] Mar, 2013 [facility] [address] [id number] [address] [place] [address], [place] [address] 17 Mar, 2013 [facility] [address] [id number] [address] [place] [address], [place] [address] 15 Mar, 2014 [facility] [address] [id number] [address] [place] [address] 15 Mar, 2014 [facility] [address] [id number] [address] [place] [address], [place] [address] 15 Mar, 2014 [facility] [address] [id number] [address] [place] [address] Mar, [facility] [address] [id number] [address] [place] [address], [place] [address] Mar, [facility] [address] [id number] [address] [place] [address] Mar, [facility] [address] [id number] [address] [place] [address] Mar, [facility] [address] [id number] [address] [place] [address] Mar, 2013 [facility] [address] [id number] [address] [place] [address], [place] [address] Mar, [facility] [address] [id number] [address] [place] [id number] Mar, [facility] [address] [id number] [address] [place] [address] Mar, 2013 [facility] [address] [id number] [address] [place] [address], [place] [address] 02 Mar, 2013 [facility] [address] [id number] [address] [place] [address], [place] [address] 05 Sep, 2013 [facility] [address] [id number] [address] [place] [address], [place] [address] 05 Sep, 2013 [facility] [address] [id number] [address] [place] [address], [place] [address] 04 Sep, 2013 [facility] [address] [id number] [address] [place] [address], [place] [address] 04 Sep, 2013 [facility] [address] [id number] [address] [place] [address], [place] [address] 03 Feb, 2013 [facility] [address] [id number] [address] [place] [address], [place] [address] Feb, 2013 [facility] [address] [id number] [address] [place] [address], [place] [address] Feb, 2013 [facility] [address] [id number] [address] [place] [address], [place] [address] Feb, 2013 [facility] [address] [id number] [address] [place] [address], [place] [address] Feb, 2013 [facility] [address] [id number] [address] [place] [address], [place] [address] Feb, 2013 [facility] [address] [id number] [address] [place] [address], [place] [address] Jan, [facility] [address] [id number] [address] [place] [address], [place] [address] Jan, [facility] [address] [id number] [address] [place] [address], [place] [address] Jan, [facility] [address] [id number] [address] [place] [address], [place] [address] Jan, [facility] [address] [id number] [address] [place] [address], [place] [address] Jan, [facility] [address] [id number] [address] [place] [address], [place] [address] Jan, [facility] [address] [id number] [address] [place] [address], [place] [address] Jan, [facility] [address] [id number] [address] [place] [address], [place] [address] Jan, [facility] [address] [id number] [address] [place] [address], [place] [address] Jan, [facility] [address] [id number] [address] [place] [address], [place] [address] Jan, [facility] [address] [id number] [address] [place] [address], [place] [address] Jan, [facility] [address] [id number] [address] [place] [address], [place] [address] Jan, [facility] [address] [id number] [address] [place] [address], [place] [address] Dec, [facility] [address] [id number] [address] [place] [address], [place] [address] Dec, [facility] [address] [id number] [address] [place] [address], [place] [address] Dec, [facility] [address] [id number] [address] [place] [address], [place] [address] Dec, [facility] [address] [id number] [address] [place] [address], [place] [address] Dec, [facility] [address] [id number] [address] [place] [address], [place] [address] Dec, [facility] [address] [id number] [address] [place] [address], [place] [address] Dec, [facility] [address] [id number] [address] [place] [address], [place] [address] Dec, [facility] [address] [id number] [address] [place] [address], [place] [address] Dec, [facility] [address] [id number] [address] [place] [address], [place] [address] Dec, [facility] [address] [id number] [address] [place] [address], [place] [address] Dec, [facility] [address] [id number] [address] [place] [address], [place] [address] Dec, [facility] [address] [id number] [address] [place] [address], [place] [address] Nov, [facility] [address] [id number] [address] [place] [address], [place] [address] Nov, [facility] [address] [id number] [address] [place] [address], [place] [address] Nov, [facility] [address] [id number] [address] [place] [address], [place] [address] Nov, [facility] [address] [id number] [address] [place] [address], [place] [address] Nov, [facility] [address] [id number] [address] [place] [address], [place] [address] Nov, [facility] [address] [id number] [address] [place] [address], [place] [address] Nov, [facility] [address] [id number] [address] [place] [address], [place] [address] Nov, [facility] [address] [id number] [address] [place] [address] Nov, [facility] [address] [id number] [address] [place] [address], [place] [address] Nov, [facility] [address] [id number] [address] [place] [address], [place] [address] Nov, [facility] [address] [id number] [address] [place] [address], [place] [address] Nov, [facility] [address] [id number] [address] [place] [address], [place] [address] Nov, [facility] [address] [id number] [address] [place] [address], [place] [address] Nov, [facility] [address] [id number] [address] [place] [address], [place] [address] October, [facility] [address] [id number] [address] [place] [address], [place] [address] October, [facility] [address] [id number] [address] [place] [address], [place] [address] October, [facility] [address] [id number] [address] [place] [address], [place] [address] October, [facility] [address] [id number] [address] [place] [address], [place] [address] October, [facility] [address] [id number] [address] [place] [address], [place] [address] October, [facility] [address] [id number] [address] [place] [address], [place] [address] October, [facility] [address] [id number] [address] [place] [address], [place] [address] October, [facility] [address] [id number] [address] [place] [address], [place] [address] October, [facility] [address] [id number] [address] [place] [address], [place] [address] October, [facility] [address] [id number] [address] [place] [address], [place] [address] October, [facility] [address] [id number] [address] [place] [address], [place] [address] October, [facility] [address] [id number] [address] [place] [address], [place] [address] Sep, [facility] [address] [id number] [address] [place] [address], [place] [address] Sep, [facility] [address] [id number] [facility] [place] [address] Sep, [facility] [address] [id number] [address] [place] [address], [place] [address] Sep, [facility] [address] [id number] [address] [place] [address], [place] [address] Sep, [facility] [address] [id number] [address] [place] [address], [place] [address] Sep, [facility] [address] [id number] [address] [place] [address], [place] [address] Aug, [facility] [address] [id number] [address] [place] [address], [place] [address] Aug, [facility] [address] [id number] [address] [place] [address], [place] [address] Aug, [facility] [address] [id number] [address] [place] [address], [place] [address] Aug, [facility] [address] [id number] [address] [place] [address], [place] [address] Aug, [facility] [address] [id number] [address] [place] [address], [place] [address] Aug, [facility] [address] [id number] [address] [place] [address], [place] [address] Jul, [facility] [address] [id number] [address] [place] [address], [place] [address] Jul, [facility] [address] [id number] [address] [place] [address], [place] [address] Jul, [facility] [address] [id number] [address] [place] [address], [place] [address] Jul, [facility] [address] [id number] [address] [place] [address], [place] [address] Jul, [facility] [address] [id number] [address] [place] [address], [place] [address] 13 Jul, 2013 [facility] [address] [id number] [address] [place] [address], [place] [address] Jul, [facility] [address] [id number] [address] [place] [address], [place] [address] Jul, [facility] [address] [id number] [address] [place] [address], [place] [address] Jul, [facility] [address] [id number] [address] [place] [address], [place] [address] Jul, [facility] [address] [id number] [address] [place] [address], [place] [address] Jun, [facility] [address] [id number] [address] [place] [address], [place] [address] Jun, [facility] [address] [id number] [address] [place] [address], [place] [address] Jun, [facility] [address] [id number] [address] [place] [address], [place] [address] Jun, [facility] [address] [id number] [address] [place] [address], [place] [address] Jun, [facility] [address] [id number] [address] [place] [address], [place] [address] Jun, [facility] [address] [id number] [address] [place] [address], [place] [address] Jun, [facility] [address] [id number] [address] [place] [address], [place] [address] Jun, [facility] [address] [id number] [address] [place] [address], [place] [address] May, [facility] [address] [id number] [address] [place] [address], [place] [address] May, [facility] [address] [id number] [address] [place] [address] [address] May, [facility] [address] [id number] [address] [place] [address], [place] [address] May, [facility] [address] [id number] [address] [place] [address], [place] [address] May, [facility] [address] [id number] [address] [place] [address], [place] [address] May, [facility] [address] [id number] [address] [place] [address], [place] [address] May, [facility] [address] [id number] [address] [place] [address], [place] [address] May, [facility] [address] [id number] [address] [place] [address], [place] [address] Apr, [facility] [address] [id number] [address] [place] [address], [place] [address] Apr, [facility] [address] [id number] [address] [place] [address] Apr, [facility] [address] [id number] [address] [place] [address] Apr, [facility] [address] [id number] [address] [place] [address] Apr, [facility] [address] [id number] [address] [place] [address] Apr, [facility] [address] [id number] [address] [place] [address] Mar, [facility] [address] [id number] [address] [place] [address] Mar, [facility] [address] [id number] [address] [place] [address] Mar, [facility] [address] [id number] [address] [place] [address] Mar, [facility] [address] [id number] [address] [place] [address], [place] [address] Mar, [facility] [address] [id number] [address] [place] [address], [place] [address] Mar, [facility] [address] [id number] [address] [place] [address], [place] [address] Mar, [facility] [address] [id number] [address] [place] [address], [place] [address] 30 Feb, 2013 [facility] [address] [id number] [address] [place] [address], [place] [address] 30 Feb, 2013 [facility] [address] [id number] [address] [place] [address], [place] [address] 27 Feb, 2013 [facility] [address] [id number] [address] [place] [address], [place] [address] Feb, [facility] [address] [id number] [address] [place] [address], [place] [address] Feb, [facility] [address] [id number] [address] [place] [address], [place] [address] Feb, [facility] [address] [id number] [address] [place] [address], [place] [address] Jan, [facility] [address] [id number] [address] [place] [address], [place] [address] Jan, [facility] [address] [id number] [address] [place] [address], [place] [address] Jan, [facility] [address] [id number] [address] [place] [address], [place] [address] Jan, [facility] [address] [id number] [address] [place] [address], [place] [address] Jan, [facility] [address] [id number] [address] [place] [address], [place] [address] Jan, [facility] [address] [id number] [address] [place] [address], [place] [address] Jan, [facility] [address] [id number] [address] [place] [address], [place] [address] Jan, [facility] [address] [id number] [address] [place] [address], [place] [address] Jan, [facility] [address] [id number] [address] [place] [address], [place] [address] Dec, [facility] [address] [id number] [address] [place] [address], [place] [address] Dec, [facility] [address] [id number] [address] [place] [address], [place] [address] Dec, [facility] [address] [id number] [address] [place] [address], [place] [address] Dec, [facility] [address] [id number] [address] [place] [address], [place] [address] Dec, [facility] [address] [id number] [address] [place] [address], [place] [address] Dec, [facility] [address] [id number] [address] [place] [address], [place] [address] Dec, [facility] [address] [id number] [address] [place] [address], [place] [address] Dec, [facility] [address] [id number] [address] [place] [address], [place] [address] Dec, [facility] [address] [id number] [address] [place] [address], [place] [address] Dec, [facility] [address] [id number] [address] [place] [address], [place] [address] Dec, [facility] [address] [id number] [address] [place] [address], [place] [address] Dec, [facility] [address] [id number] [address] [place] [address], [place] [address] Dec, [facility] [address] [id number] [address] [place] [address], [place] [address] Nov, [facility] [address] [id number] [address] [place] [address], [place] [address] Nov, [facility] [address] [id number] [address] [place] [address], [place] [address] Nov, [facility] [address] [id number] [address] [place] [address], [place] [address] Nov, [facility] [address] [id number] [address] [place] [address], [place] [address] October, [facility] [address] [id number] [address] [place] [address], [place] [address] October, [facility] [address] [id number] [address] [place] [address], [place] [address] October, [facility] [address] [id number] [address] [place] [address], [place] [address] October, [facility] [address] [id number] [address] [place] [address], [place] [address] October, [facility] [address] [id number] [address] [place] [address], [place] [address] October, [facility] [address] [id number] [address] [place] [address], [place] [address] 30 Sep, 2012 [facility] [address] [id number] [address] [place] [address], [place] [address] 29 Sep, 2012 [facility] [address] [id number] [address] [place] [address], [place] [address] 27 Sep, 2012 [facility] [address] [id number] [address] [place] [address], [place] [address] 23 Sep, 2012 [facility] [address] [id number] [address] [place] [address], [place] [address] Sep, [facility] [address] [id number] [address] [place] [address], [place] [address] 16 Sep, 2012 [facility] [address] [id number] [facility] [place] [address] 12 Sep, 2012 [facility] [address] [id number] [address] [place] [address], [place] [address] Sep, [facility] [address] [id number] [address] [place] [address], [place] [address] Sep, [facility] [address] [id number] [address] [place] [address], [place] [address] Sep, [facility] [address] [id number] [address] [place] [address], [place] [address] Sep, [facility] [address] [id number] [address] [place] [address], [place] [address] Aug, [facility] [address] [id number] [address] [place] [address], [place] [address] Aug, [facility] [address] [id number] [address] [place] [address], [place] [address] 25 Aug, 2012 [facility] [address] [id number] [address] [place] [address], [place] [address] 21 Aug, 2012 [facility] [address] [id number] [address] [place] [address], [place] [address] 19 Aug, 2012 [facility] [address] [id number] [address] [place] [address], [place] [address] 18 Aug, 2012 [facility] [address] [id number] [address] [place] [address], [place] [address] 17 Aug, 2012 [facility] [address] [id number] [address] [place] [address], [place] [address] 15 Aug, 2012 [facility] [address] [id number] [address] [place] [address], [place] [address] 15 Aug, 2012 [facility] [address] [id number] [address] [place] [address], [place] [address] 11 Aug, 2012 [facility] [address] [id number] [address] [place] [address], [place] [address] Aug, [facility] [address] [id number] [address] [place] [address], [place] [address] Aug, [facility] [address] [id number] [address] [place] [address], [place] [address] Jul, [facility] [address] [id number] [address] [place] [address], [place] [address] Jul, [facility] [address] [id number] [address] [place] [address], [place] [address] Jul, [facility] [address] [id number] [address] [place] [address], [place] [address] Jul, [facility] [address] [id number] [address] [place] [address], [place] [address] Jul, [facility] [address] [id number] [address] [place] [address], [place] [address] Jul, [facility] [address] [id number] [address] [place] [address], [place] [address] Jul, [facility] [address] [id number] [address] [place] [address], [place] [address] Jul, [facility] [address] [id number] [address] [place] [address], [place] [address] Jul, [facility] [address] [id number] [address] [place] [address] Jul, [facility] [address] [id number] [address] [place] [id number] May, [facility] [address] [id number] [place] [id number] May, [facility] [address] [id number] [address] [place] [address] May, [facility] [address] [id number] [address] [place] [address], [place] [address] 14 May, 2012 [facility] [address] [id number] [address] [place] [address], [place] [address] May, [facility] [address] [id number] [address] [place] [address], [place] [address] Apr, [facility] [address] [id number] [place] [id number] Apr, [facility] [address] [facility] [id number] [address] [place] [address], [place] [address] Apr, [facility] [address] [facility] [id number] [address] [place] [address], [place] [address] Mar, [facility] [address] [id number] [place] [id number] Mar, [facility] [address] [facility] [id number] [address] [place] [address], [place] [address] Mar, [facility] [address] [id number] [place] [id number] Feb, [facility] [address] [facility] [id number] [address] [place] [address], [place] [address] Feb, [facility] [address] [facility] [id number] [address] [place] [address], [place] [address] Feb, [facility] [address] [id number] [place] [id number] Feb, [facility] [address] [id number] [place] [id number] Feb, [facility] [address] [id number] [place] [id number] Jan, [facility] [address] [id number] [address] [place] [address], [place] [address] Jan, [facility] [address] [id number] [place] [id number] Jan, [facility] [address] [id number] [place] [id number] Jan, [facility] [address] [id number] [place] [id number] Jan, [facility] [address] [id number] [address] [place] [address], [place] [address] Jan, [facility] [address] [facility] [id number] [address] [place] [address], [place] [address] Jan, [facility] [address] [facility] [id number] [address] [place] [address], [place] [address] Aug, [facility] [place] [address] [facility] [id number] [place] [id number] Aug, [facility] [address] [facility] [id number] [address] [place] [address], [place] [address] Jul, [facility] [address] [facility] [id number] [address] [place] [address], [place] [address] Jul, [facility] [address] [facility] [id number] [address] [place] [address], [place] [address] Jul, [facility] [place] [address] [facility] [id number] [place] [id number] Jul, [facility] [address] [facility] [id number] [address] [place] [address], [place] [address] Jul, [facility] [place] [address] [facility] [id number] [place] [id number] Jul, [facility] [address] [facility] [id number] [address] [place] [address], [place] [address] Jul, [facility] [place] [address] [id number] [place] [id number] Jul, [facility] [place] [address] [id number] [place] [id number] Jul, [facility] [place] [address] [id number] [place] [id number] Jul, [facility] [address] [facility] [id number] [address] [place] [address], [place] [address] May, [facility] [address] [facility] [id number] [address] [place] [address], [place] [address] May, [facility] [address] [id number] [address] [place] [address] May, [facility] [address] [id number] [address] [place] [id number] Apr, [facility] [address] [id number] [address] [place] [id number] Jan, [facility] [address] [id number] [address] [place] [address] Jan, [facility] [address] [id number] [address] [place] [address] Dec, [facility] [address] [id number] [address] [place] [id number] Dec, [facility] [address] [id number] [address] [place] [id number] 16 May, 2009 [facility] [address] [id number] [address] [place] [address] Mar, [facility] [address] [id number] [address] [place] [id number] Mar, [facility] [address] [id number] [address] [place] [id number] Jan, IMMUNIZATIONS No Known Immunizations SOCIAL HISTORY [...]
--- OUTSIDE RECORDS SUMMARY | 2020-01-28 12:21 | XMS REPORT ---
Author Author Heydi Candelario Doctor Organization [facility] Address Unknown Phone Unavailable Care Team Providers Care Cement Mixer Name Role Phone Migration, Doctor Unavailable Unavailable PROBLEMS Type Condition ICD9-CM Code [id number] Code Onset Dates Condition S tatus SNOMED Code Problem Chronic pain syndrome G89.4 Active 660589182 Problem Sore throat J02.9 Active 49147480 3 Problem Choriocarcinoma C58 Active 1881 38626 Problem 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 Z79.01 Active 514462451 Problem History of venous thromboembolism V12.51 Active 225388251 Problem Cellulitis of unspecified part of limb L03.119 Active 121700785 Problem Gastroesophageal reflux disease without esophagitis K21.9 Active 887734543 Problem History of pulmonary embolism Z86.711 Active 617993989 Problem Pseudotumor cerebri G93.2 Active 52114376 Problem History of DVT (deep vein thrombosis) Z86.718 Active 272224795 ALLERGIES No Information ENCOUNTERS Encounter Location Date Diagnosis [place] [address] [address] [facility] [id number] [address] [place] [address] Apr, 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 [address] [facility] [id number] [address] [place] [address] Apr, [place] [address] [facility] [id number] [address] [place] [address] Apr, 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.01 ; Cellulitis of unspecified part of limb L03.119 ; Chronic pain syndrome G89.4 and Anxiety F41.9 [place] [address] [address] [place] [id number] [address] [place] [address] 16 Apr, 2015 [place] [address] [place] [id number] [place] [address] Apr, [place] [address] [address] Mar, [place] [address] [address] [place] [id number] [place] [address] Mar, [place] [address] [address] Mar, Sore throat J02.9 ; Gastroes ophageal reflux disease without esophagitis K21.9 ; Pseudotumor cerebri G93.2 ; Chronic pain syndrome G89.4 ; Choriocarcinoma C58 ; History of pulmonary embolism Z86.711 ; History of DVT (deep vein thrombosis) Z86.718 ; Anxiety F41.9 and Tachycardia R00.0 [place] [address] [address] Feb, Anxiety 300.00 and Chronic p ain 338.29 [place] [address] [address] [place] [id number] [address] [place] [address] Feb, [place] [id number] [place] [address] Feb, [place] [address] [place] [id number] [place] [address] Jan, 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 therapy V58.61 and Dysuria 788.1 [place] [address] [address] [place] [id number] [address] [place] [address] Jan, Dysuria 788.1 [place] [address] [address] [place] [id number] [place] [address] Jan, Anxiety 300.00 and Chronic p ain 338.29 [place] [address] [address] Jan, [facility] [address] [address] Jan, [place] [address] [address] Jan, [place] [address] [address] Dec, Weakness 780.79 [place] [address] [address] Dec, 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 therapy V58.61 [place] [address] [address] Dec, Palpitations 785.1 ; Tremor 781.0 ; Weakness 780.79 ; 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 therapy V58.61 and Yeast vaginitis 112.1 [place] [address] [address] Dec, [place] [address] [address] Dec, Cervicalgia 723.1 ; Tachycar yoseph 785.0 ; Pseudotumor cerebri 348.2 and History of venous thromboembolism V12.51 [place] [address] [address] [place] [id number] [address] [place] [address] Nov, [place] [address] [address] Nov, [place] [address] [address] Nov, Tachycardia 785.0 ; Pseudotu mor cerebri 348.2 ; Anxiety 300.00 and History of venous thromboembolism V12.51 [facility] [address] [id number] [address] [place] [address], [place] [address] Nov, [facility] [address] [id number] [address] [place] [address], [place] [address] 18 Nov, 2014 [facility] [address] [id number] [address] [place] [address], [place] [address] 16 Nov, 2014 [facility] [address] [id number] [address] [place] [address], [place] [address] Nov, [facility] [address] [id number] [address] [place] [address], [place] [address] Nov, [facility] [address] [id number] [address] [place] [address], [place] [address] Nov, [facility] [address] [id number] [address] [place] [address], [place] [address] Nov, [facility] [address] [id number] [address] [place] [address] October, [facility] [address] [id number] [address] [place] [address] October, [facility] [address] [id number] [address] [place] [address] October, Pain in thoracic spine 724.1 and Tachycardia 785.0 [facility] [address] [id number] [address] [place] [address] October, [facility] [address] [id number] [address] [place] [address] October, [facility] [address] [id number] [address] [place] [address] Sep, [facility] [address] [id number] [address] [place] [address] Sep, [facility] [address] [id number] [address] [place] [address] Aug, [facility] [address] [id number] [address] [place] [address], [place] [address] Aug, [facility] [address] [id number] [address] [place] [address], [place] [address] Aug, [facility] [address] [id number] [address] [place] [address], [place] [address] 17 Aug, 2014 [facility] [address] [id number] [address] [place] [address], [place] [address] Aug, [facility] [address] [id number] [address] [place] [address], [place] [address] 16 Aug, 2014 [facility] [address] [id number] [address] [place] [address], [place] [address] Aug, [facility] [address] [id number] [address] [place] [address], [place] [address] Aug, [facility] [address] [id number] [address] [place] [address], [place] [address] Aug, 2014 [facility] [address] [id number] [address] [place] [address], [place] [address] Aug, [facility] [address] [id number] [address] [place] [address], [place] [address] Aug, [facility] [address] [id number] [address] [place] [address], [place] [address] Aug, [facility] [address] [id number] [address] [place] [address], [place] [address] Jul, 2014 [facility] [address] [id number] [address] [place] [address], [place] [address] Jul, 2014 [facility] [address] [id number] [address] [place] [address], [place] [address] Jul, 2014 [facility] [address] [id number] [address] [place] [address], [place] [address] Jul, 2014 [facility] [address] [id number] [address] [place] [address], [place] [address] b, 2014 [facility] [address] [id number] [address] [place] [address], [place] [address] 23 Jul, 2014 [facility] [address] [id number] [address] [place] [address], [place] [address] 23 Jul, 2014 [facility] [address] [id number] [address] [place] [address], [place] [address] 23 Jul, 2014 [facility] [address] [id number] [address] [place] [address], [place] [address] 20 Jul, 2014 [facility] [address] [id number] [address] [place] [address], [place] [address] 20 Jul, 2014 [facility] [address] [id number] [address] [place] [address], [place] [address] 19 Jul, 2014 [facility] [address] [id number] [address] [place] [address], [place] [address] 19 Jul, 2014 [facility] [address] [id number] [address] [place] [address], [place] [address] 17 Jul, 2014 [facility] [address] [id number] [address] [place] [address], [place] [address] 17 Jul, 2014 [facility] [address] [id number] [address] [place] [address], [place] [address] 16 Jul, 2014 [facility] [address] [id number] [address] [place] [address], [place] [address] 16 Jul, 2014 [facility] [address] [id number] [address] [place] [address], [place] [address] 16 Jul, 2014 [facility] [address] [id number] [address] [place] [address], [place] [address] 16 Jul, 2014 [facility] [address] [id number] [address] [place] [address], [place] [address] 13 Jul, 2014 [facility] [address] [id number] [address] [place] [address], [place] [address] Jul, 2014 [facility] [address] [id number] [address] [place] [address], [place] [address] Jul, 2014 [facility] [address] [id number] [address] [place] [address], [place] [address] Jul, 2014 [facility] [address] [id number] [address] [place] [address], [place] [address] Jul, 2014 [facility] [address] [id number] [address] [place] [address], [place] [address] Jul, 2014 [facility] [address] [id number] [address] [place] [address], [place] [address] Jul, [facility] [address] [id number] [address] [place] [address], [place] [address] Jul, [facility] [address] [id number] [address] [place] [address], [place] [address] Jul, [facility] [address] [id number] [address] [place] [address], [place] [address] Jul, [facility] [address] [id number] [address] [place] [address], [place] [address] Jul, [facility] [address] [id number] [address] [place] [address], [place] [address] Jul, [facility] [address] [id number] [address] [place] [address], [place] [address] Jun, [facility] [address] [id number] [address] [place] [address], [place] [address] Jun, [facility] [address] [id number] [address] [place] [address], [place] [address] Jun, [facility] [address] [id number] [address] [place] [address], [place] [address] Jun, [facility] [address] [id number] [address] [place] [address], [place] [address] Jun, [facility] [address] [id number] [address] [place] [address], [place] [address] Jun, [facility] [address] [id number] [address] [place] [address], [place] [address] Jun, [facility] [address] [id number] [address] [place] [address], [place] [address] Jun, [facility] [address] [id number] [address] [place] [address], [place] [address] Jun, [facility] [address] [id number] [address] [place] [address], [place] [address] Jun, [facility] [address] [id number] [address] [place] [address], [place] [address] Jun, [facility] [address] [id number] [address] [place] [address], [place] [address] Jun, [facility] [address] [id number] [address] [place] [address], [place] [address] Jun, [facility] [address] [id number] [address] [place] [address], [place] [address] Jun, [facility] [address] [id number] [address] [place] [address], [place] [address] Jun, [facility] [address] [id number] [address] [place] [address], [place] [address] Jun, [facility] [address] [id number] [address] [place] [address], [place] [address] Jun, [facility] [address] [id number] [address] [place] [address], [place] [address] Jun, [facility] [address] [id number] [address] [place] [address], [place] [address] Jun, [facility] [address] [id number] [address] [place] [address], [place] [address] Jun, [facility] [address] [id number] [address] [place] [address], [place] [address] May, [facility] [address] [id number] [address] [place] [address], [place] [address] May, [facility] [address] [id number] [address] [place] [address], [place] [address] May, [facility] [address] [id number] [address] [place] [address], [place] [address] May, [facility] [address] [id number] [address] [place] [address], [place] [address] May, [facility] [address] [id number] [address] [place] [address], [place] [address] May, [facility] [address] [id number] [address] [place] [address], [place] [address] May, [facility] [address] [id number] [address] [place] [address], [place] [address] May, [facility] [address] [id number] [address] [place] [address], [place] [address] May, [facility] [address] [id number] [address] [place] [address], [place] [address] May, [facility] [address] [id number] [address] [place] [address], [place] [address] May, [facility] [address] [id number] [address] [place] [address], [place] [address] 18 May, 2014 [facility] [address] [id number] [address] [place] [address], [place] [address] 18 May, 2014 [facility] [address] [id number] [address] [place] [address], [place] [address] 17 May, 2014 [facility] [address] [id number] [address] [place] [address], [place] [address] 16 May, 2014 [facility] [address] [id number] [address] [place] [address], [place] [address] 16 May, 2014 [facility] [address] [id number] [address] [place] [address], [place] [address] 15 May, 2014 [facility] [address] [id number] [address] [place] [address], [place] [address] 15 May, 2014 [facility] [address] [id number] [address] [place] [address], [place] [address] May, [facility] [address] [id number] [address] [place] [address], [place] [address] May, [facility] [address] [id number] [address] [place] [address], [place] [address] May, [facility] [address] [id number] [address] [place] [address], [place] [address] May, [facility] [address] [id number] [address] [place] [address], [place] [address] May, [facility] [address] [id number] [address] [place] [address], [place] [address] May, [facility] [address] [id number] [address] [place] [address], [place] [address] May, [facility] [address] [id number] [address] [place] [address], [place] [address] May, [facility] [address] [id number] [address] [place] [address], [place] [address] May, [facility] [address] [id number] [address] [place] [address], [place] [address] May, [facility] [address] [id number] [address] [place] [address], [place] [address] May, [facility] [address] [id number] [address] [place] [address], [place] [address] May, [facility] [address] [id number] [address] [place] [address], [place] [address] May, [facility] [address] [id number] [address] [place] [address], [place] [address] May, [facility] [address] [id number] [address] [place] [address], [place] [address] May, [facility] [address] [id number] [address] [place] [address], [place] [address] May, [facility] [address] [id number] [address] [place] [address], [place] [address] Apr, [facility] [address] [id number] [address] [place] [address], [place] [address] Apr, [facility] [address] [id number] [address] [place] [address], [place] [address] Apr, [facility] [address] [id number] [address] [place] [address], [place] [address] Apr, [facility] [address] [id number] [address] [place] [address], [place] [address] Apr, [facility] [address] [id number] [address] [place] [address], [place] [address] Apr, [facility] [address] [id number] [address] [place] [address], [place] [address] Apr, [facility] [address] [id number] [address] [place] [address], [place] [address] Apr, [facility] [address] [id number] [address] [place] [address], [place] [address] Apr, [facility] [address] [id number] [address] [place] [address], [place] [address] Apr, [facility] [address] [id number] [address] [place] [address], [place] [address] Mar, [facility] [address] [id number] [address] [place] [address], [place] [address] Mar, [facility] [address] [id number] [address] [place] [address], [place] [address] Mar, [facility] [address] [id number] [address] [place] [address], [place] [address] 31 Mar, 2013 [facility] [address] [id number] [address] [place] [address], [place] [address] 30 Mar, 2013 [facility] [address] [id number] [address] [place] [address], [place] [address] 30 Mar, 2014 [facility] [address] [id number] [address] [place] [address], [place] [address] Mar, 2013 [facility] [address] [id number] [address] [place] [address], [place] [address] 17 Mar, 2013 [facility] [address] [id number] [address] [place] [address], [place] [address] 15 Mar, 2014 [facility] [address] [id number] [address] [place] [id number] 15 Mar, 2014 [facility] [address] [id number] [address] [place] [address], [place] [address] 15 Mar, 2014 [facility] [address] [id number] [address] [place] [id number] Mar, [facility] [address] [id number] [address] [place] [address], [place] [address] Mar, [facility] [address] [id number] [address] [place] [id number] Mar, [facility] [address] [id number] [address] [place] [id number] Mar, [facility] [address] [id number] [address] [place] [id number] Mar, 2013 [facility] [address] [id number] [address] [place] [address], [place] [address] Mar, [facility] [address] [id number] [address] [place] [id number] Mar, [facility] [address] [id number] [address] [place] [id number] Mar, 2013 [facility] [address] [id number] [address] [place] [address], [place] [address] 02 Mar, 2013 [facility] [address] [id number] [address] [place] [address], [place] [address] 05 Sep, 2013 [facility] [address] [id number] [address] [place] [address], [place] [address] 05 Sep, 2013 [facility] [address] [id number] [address] [place] [address], [place] [address] 04 Sep, 2013 [facility] [address] [id number] [address] [place] [address], [place] [address] 04 Sep, 2013 [facility] [address] [id number] [address] [place] [address], [place] [address] 03 Feb, 2013 [facility] [address] [id number] [address] [place] [address], [place] [address] Feb, 2013 [facility] [address] [id number] [address] [place] [address], [place] [address] Feb, 2013 [facility] [address] [id number] [address] [place] [address], [place] [address] Feb, 2013 [facility] [address] [id number] [address] [place] [address], [place] [address] Feb, 2013 [facility] [address] [id number] [address] [place] [address], [place] [address] Feb, 2013 [facility] [address] [id number] [address] [place] [address], [place] [address] Jan, [facility] [address] [id number] [address] [place] [address], [place] [address] Jan, [facility] [address] [id number] [address] [place] [address], [place] [address] Jan, [facility] [address] [id number] [address] [place] [address], [place] [address] Jan, [facility] [address] [id number] [address] [place] [address], [place] [address] Jan, [facility] [address] [id number] [address] [place] [address], [place] [address] Jan, [facility] [address] [id number] [address] [place] [address], [place] [address] Jan, [facility] [address] [id number] [address] [place] [address], [place] [address] Jan, [facility] [address] [id number] [address] [place] [address], [place] [address] Jan, [facility] [address] [id number] [address] [place] [address], [place] [address] Jan, [facility] [address] [id number] [address] [place] [address], [place] [address] Jan, [facility] [address] [id number] [address] [place] [address], [place] [address] Jan, [facility] [address] [id number] [address] [place] [address], [place] [address] Dec, [facility] [address] [id number] [address] [place] [address], [place] [address] Dec, [facility] [address] [id number] [address] [place] [address], [place] [address] Dec, [facility] [address] [id number] [address] [place] [address], [place] [address] Dec, [facility] [address] [id number] [address] [place] [address], [place] [address] Dec, [facility] [address] [id number] [address] [place] [address], [place] [address] Dec, [facility] [address] [id number] [address] [place] [address], [place] [address] Dec, [facility] [address] [id number] 43 [place] [address], [place] [address] Dec, [facility] [address] [id number] [address] [place] [address], [place] [address] Dec, [facility] [address] [id number] [address] [place] [address], [place] [address] Dec, [facility] [address] [id number] [address] [place] [address], [place] [address] Dec, [facility] [address] [id number] [address] [place] [address], [place] [address] Dec, [facility] [address] [id number] [address] [place] [address], [place] [address] Nov, [facility] [address] [id number] [address] [place] [address], [place] [address] Nov, [facility] [address] [id number] [address] [place] [address], [place] [address] Nov, [facility] [address] [id number] [address] [place] [address], [place] [address] Nov, [facility] [address] [id number] [address] [place] [address], [place] [address] Nov, [facility] [address] [id number] [address] [place] [address], [place] [address] Nov, [facility] [address] [id number] [address] [place] [address], [place] [address] Nov, [facility] [address] [id number] [address] [place] [address], [place] [address] Nov, [facility] [address] [id number] [address] [place] [address] Nov, [facility] [address] [id number] [address] [place] [address], [place] [address] Nov, [facility] [address] [id number] [address] [place] [address], [place] [address] Nov, [facility] [address] [id number] [address] [place] [address], [place] [address] Nov, [facility] [address] [id number] [address] [place] [address], [place] [address] Nov, [facility] [address] [id number] [address] [place] [address], [place] [address] Nov, [facility] [address] [id number] [address] [place] [address], [place] [address] October, [facility] [address] [id number] [address] [place] [address], [place] [address] October, [facility] [address] [id number] [address] [place] [address], [place] [address] October, [facility] [address] [id number] [address] [place] [address], [place] [address] October, [facility] [address] [id number] [address] [place] [address], [place] [address] October, [facility] [address] [id number] [address] [place] [address], [place] [address] October, [facility] [address] [id number] [address] [place] [address], [place] [address] October, [facility] [address] [id number] [address] [place] [address], [place] [address] October, [facility] [address] [id number] [address] [place] [address], [place] [address] October, [facility] [address] [id number] [address] [place] [address], [place] [address] October, [facility] [address] [id number] [address] [place] [address], [place] [address] October, [facility] [address] [id number] [address] [place] [address], [place] [address] October, [facility] [address] [id number] [address] [place] [address], [place] [address] Sep, [facility] [address] [id number] [address] [place] [address], [place] [address] Sep, [facility] [address] [id number] [facility] [place] [address] Sep, [facility] [address] [id number] [address] [place] [address], [place] [address] Sep, [facility] [address] [id number] [address] [place] [address], [place] [address] Sep, [facility] [address] [id number] [address] [place] [address], [place] [address] Sep, [facility] [address] [id number] [address] [place] [address], [place] [address] Aug, [facility] [address] [id number] [address] [place] [address], [place] [address] Aug, [facility] [address] [id number] [address] [place] [address], [place] [address] Aug, [facility] [address] [id number] [address] [place] [address], [place] [address] Aug, [facility] [address] [id number] [address] [place] [address], [place] [address] Aug, [facility] [address] [id number] [address] [place] [address], [place] [address] Aug, [facility] [address] [id number] [address] [place] [address], [place] [address] Jul, [facility] [address] [id number] [address] [place] [address], [place] [address] Jul, [facility] [address] [id number] [address] [place] [address], [place] [address] Jul, [facility] [address] [id number] [address] [place] [address], [place] [address] Jul, [facility] [address] [id number] [address] [place] [address], [place] [address] Jul, [facility] [address] [id number] [address] [place] [address], [place] [address] 13 Jul, 2013 [facility] [address] [id number] [address] [place] [address], [place] [address] Jul, [facility] [address] [id number] [address] [place] [address], [place] [address] Jul, [facility] [address] [id number] [address] [place] [address], [place] [address] Jul, [facility] [address] [id number] [address] [place] [address], [place] [address] Jul, [facility] [address] [id number] [address] [place] [address], [place] [address] Jun, [facility] [address] [id number] [address] [place] [address], [place] [address] Jun, [facility] [address] [id number] [address] [place] [address], [place] [address] Jun, [facility] [address] [id number] [address] [place] [address], [place] [address] Jun, [facility] [address] [id number] [address] [place] [address], [place] [address] Jun, [facility] [address] [id number] [address] [place] [address], [place] [address] Jun, [facility] [address] [id number] [address] [place] [address], [place] [address] Jun, [facility] [address] [id number] [address] [place] [address], [place] [address] Jun, [facility] [address] [id number] [address] [place] [address], [place] [address] May, [facility] [address] [id number] [address] [place] [address], [place] [address] May, [facility] [address] [id number] [address] [place] [address] [address] May, [facility] [address] [id number] [address] [place] [address], [place] [address] May, [facility] [address] [id number] [address] [place] [address], [place] [address] May, [facility] [address] [id number] [address] [place] [address], [place] [address] May, [facility] [address] [id number] [address] [place] [address], [place] [address] May, [facility] [address] [id number] [address] [place] [address], [place] [address] May, [facility] [address] [id number] [address] [place] [address], [place] [address] Apr, [facility] [address] [id number] [address] [place] [address], [place] [address] Apr, [facility] [address] [id number] [address] [place] [address] Apr, [facility] [address] [id number] [address] [place] [address] Apr, [facility] [address] [id number] [address] [place] [address] Apr, [facility] [address] [id number] [address] [place] [address] Apr, [facility] [address] [id number] [address] [place] [address] Mar, [facility] [address] [id number] [address] [place] [address] Mar, [facility] [address] [id number] [address] [place] [address] Mar, [facility] [address] [id number] [address] [place] [address] Mar, [facility] [address] [id number] [address] [place] [address], [place] [address] Mar, [facility] [address] [id number] [address] [place] [address], [place] [address] Mar, [facility] [address] [id number] [address] [place] [address], [place] [address] Mar, [facility] [address] [id number] [address] [place] [address], [place] [address] 30 Feb, 2013 [facility] [address] [id number] [address] [place] [address], [place] [address] 30 Feb, 2013 [facility] [address] [id number] [address] [place] [address], [place] [address] 27 Feb, 2013 [facility] [address] [id number] [address] [place] [address], [place] [address] Feb, [facility] [address] [id number] [address] [place] [address], [place] [address] Feb, [facility] [address] [id number] [address] [place] [address], [place] [address] Feb, [facility] [address] [id number] [address] [place] [address], [place] [address] Jan, [facility] [address] [id number] [address] [place] [address], [place] [address] Jan, [facility] [address] [id number] [address] [place] [address], [place] [address] Jan, [facility] [address] [id number] [address] [place] [address], [place] [address] Jan, [facility] [address] [id number] [address] [place] [address], [place] [address] Jan, [facility] [address] [id number] [address] [place] [address], [place] [address] Jan, [facility] [address] [id number] [address] [place] [address], [place] [address] Jan, [facility] [address] [id number] [address] [place] [address], [place] [address] Jan, [facility] [address] [id number] [address] [place] [address], [place] [address] Jan, [facility] [address] [id number] [address] [place] [address], [place] [address] Dec, [facility] [address] [id number] [address] [place] [address], [place] [address] Dec, [facility] [address] [id number] [address] [place] [address], [place] [address] Dec, [facility] [address] [id number] [address] [place] [address], [place] [address] Dec, [facility] [address] [id number] [address] [place] [address], [place] [address] Dec, [facility] [address] [id number] [address] [place] [address], [place] [address] Dec, [facility] [address] [id number] [address] [place] [address], [place] [address] Dec, [facility] [address] [id number] [address] [place] [address], [place] [address] Dec, [facility] [address] [id number] [address] [place] [address], [place] [address] Dec, [facility] [address] [id number] [address] [place] [address], [place] [address] Dec, [facility] [address] [id number] [address] [place] [address], [place] [address] Dec, [facility] [address] [id number] [address] [place] [address], [place] [address] Dec, [facility] [address] [id number] [address] [place] [address], [place] [address] Dec, [facility] [address] [id number] [address] [place] [address], [place] [address] Nov, [facility] [address] [id number] [address] [place] [address], [place] [address] Nov, [facility] [address] [id number] [address] [place] [address], [place] [address] Nov, [facility] [address] [id number] [address] [place] [address], [place] [address] Nov, [facility] [address] [id number] [address] [place] [address], [place] [address] October, [facility] [address] [id number] [address] [place] [address], [place] [address] October, [facility] [address] [id number] [address] [place] [address], [place] [address] October, [facility] [address] [id number] [address] [place] [address], [place] [address] October, [facility] [address] [id number] [address] [place] [address], [place] [address] October, [facility] [address] [id number] [address] [place] [address], [place] [address] October, [facility] [address] [id number] [address] [place] [address], [place] [address] 30 Sep, 2012 [facility] [address] [id number] [address] [place] [address], [place] [address] 29 Sep, 2012 [facility] [address] [id number] [address] [place] [address], [place] [address] 27 Sep, 2012 [facility] [address] [id number] [address] [place] [address], [place] [address] 23 Sep, 2012 [facility] [address] [id number] [address] [place] [address], [place] [address] Sep, [facility] [address] [id number] [address] [place] [address], [place] [address] 16 Sep, 2012 [facility] [address] [id number] [facility] [place] [address] 12 Sep, 2012 [facility] [address] [id number] [address] [place] [address], [place] [address] Sep, [facility] [address] [id number] [address] [place] [address], [place] [address] Sep, [facility] [address] [id number] [address] [place] [address], [place] [address] Sep, [facility] [address] [id number] [address] [place] [address], [place] [address] Sep, [facility] [address] [id number] [address] [place] [address], [place] [address] Aug, [facility] [address] [id number] [address] [place] [address], [place] [address] Aug, [facility] [address] [id number] [address] [place] [address], [place] [address] 25 Aug, 2012 [facility] [address] [id number] [address] [place] [address], [place] [address] 21 Aug, 2012 [facility] [address] [id number] [address] [place] [address], [place] [address] 19 Aug, 2012 [facility] [address] [id number] [address] [place] [address], [place] [address] 18 Aug, 2012 [facility] [address] [id number] [address] [place] [address], [place] [address] 17 Aug, 2012 [facility] [address] [id number] [address] [place] [address], [place] [address] 15 Aug, 2012 [facility] [address] [id number] [address] [place] [address], [place] [address] 15 Aug, 2012 [facility] [address] [id number] [address] [place] [address], [place] [address] 11 Aug, 2012 [facility] [address] [id number] [address] [place] [address], [place] [address] Aug, [facility] [address] [id number] [address] [place] [address], [place] [address] Aug, [facility] [address] [id number] [address] [place] [address], [place] [address] Jul, [facility] [address] [id number] [address] [place] [address], [place] [address] Jul, [facility] [address] [id number] [address] [place] [address], [place] [address] Jul, [facility] [address] [id number] [address] [place] [address], [place] [address] Jul, [facility] [address] [id number] [address] [place] [address], [place] [address] Jul, [facility] [address] [id number] [address] [place] [address], [place] [address] Jul, [facility] [address] [id number] [address] [place] [address], [place] [address] Jul, [facility] [address] [id number] [address] [place] [address], [place] [address] Jul, [facility] [address] [id number] [address] [place] [address], [place] [address] Jul, [facility] [address] [id number] [address] [place] [address] Jul, [facility] [address] [id number] [address] [place] [address] May, [facility] [address] [id number] [id number] May, [facility] [address] [id number] [address] [place] [address] May, [facility] [address] [id number] [address] [place] [address], [place] [address] 14 May, 2012 [facility] [address] [id number] [address] [place] [address], [place] [address] May, [facility] [address] [id number] [address] [place] [address], [place] [address] Apr, [facility] [place] [address] [id number] [place] [id number] Apr, [facility] [address] [facility] [id number] [address] [place] [address], [place] [address] Apr, [facility] [address] [facility] [id number] [address] [place] [address], [place] [address] Mar, [facility] [place] [address] [id number] [place] [id number] Mar, [facility] [address] [facility] [id number] [address] [place] [address], [place] [address] Mar, [facility] [place] [address] [id number] [place] [id number] Feb, [facility] [address] [facility] [id number] [address] [place] [address], [place] [address] Feb, [facility] [address] [facility] [id number] [address] [place] [address], [place] [address] Feb, [facility] [place] [address] [id number] [place] [id number] Feb, [facility] [address] [id number] [place] [id number] Feb, [facility] [place] [address] [id number] [place] [id number] Jan, [facility] [address] [id number] [address] [place] [address], [place] [address] Jan, [facility] [place] [address] [id number] [place] [id number] Jan, [facility] [place] [address] [id number] [place] [id number] Jan, [facility] [place] [address] [id number] [place] [id number] Jan, [facility] [address] [id number] [address] [place] [address], [place] [address] Jan, [facility] [address] [facility] [id number] [address] [place] [address], [place] [address] Jan, [facility] [address] [facility] [id number] [address] [place] [address], [place] [address] Aug, [facility] [place] [address] [facility] [id number] [place] [id number] Aug, [facility] [address] [facility] [id number] [address] [place] [address], [place] [address] Jul, [facility] [address] [facility] [id number] [address] [place] [address], [place] [address] Jul, [facility] [address] [facility] [id number] [address] [place] [address], [place] [address] Jul, [facility] [place] [address] [facility] [id number] [place] [id number] Jul, [facility] [address] [facility] [id number] [address] [place] [address], [place] [address] Jul, [facility] [place] [address] [facility] [id number] [place] [id number] Jul, [facility] [address] [facility] [id number] [address] [place] [address], [place] [address] Jul, [facility] [place] [address] [id number] [place] [id number] Jul, [facility] [place] [address] [id number] [place] [id number] Jul, [facility] [place] [address] [id number] [place] [id number] Jul, [facility] [address] [facility] [id number] [address] [place] [address], [place] [address] May, [facility] [address] [facility] [id number] [address] [place] [address], [place] [address] May, [facility] [address] [id number] [address] [place] [id number] May, [facility] [address] [id number] [address] [place] [id number] Apr, [facility] [address] [id number] [address] [place] [id number] Jan, [facility] [address] [id number] [address] [place] [id number] Jan, [facility] [address] [id number] [address] [place] [id number] Dec, [facility] [address] [id number] [address] [place] [id number] Dec, [facility] [address] [id number] [address] [place] [id number] 16 May, [facility] [address] [id number] [address] [place] [id number] Mar, [facility] [address] [id number] [address] [place] [id number] Mar, [facility] [address] [id number] [address] [place] [phone] Jan, IMMUNIZATIONS No Known Immunizations SOCIAL HISTORY Never Assessed REASON FOR VISIT PLAN OF CARE VITAL SIGNS MEDICATIONS Unknown Medications RESULTS No Results PROCEDURES Procedure Date Ordered Result Body Site PROTHROMBIN TIME December 28, 2012 INSTRUCTIONS MEDICATIONS ADMINISTERED No Known Medications MEDICAL [...]
--- OUTSIDE RECORDS SUMMARY | 2020-01-28 12:21 | XMS REPORT ---
Author Author Heydi Candelario Doctor Organization [facility] Address Unknown Phone Unavailable Care Team Providers Care Mule Driver Name Role Phone Migration, Doctor Unavailable Unavailable PROBLEMS Type Condition ICD9-CM Code CBU82-SE Code Onset Dates Condition S tatus SNOMED Code Problem Chronic pain syndrome G89.4 Active 889204985 Problem Sore throat J02.9 Active 64311384 3 Problem Choriocarcinoma C58 Active 1881 63709 Problem [facility]DC 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 Z79.01 Active 916588602 Problem History of venous thromboembolism V12.51 Active 264737220 Problem Cellulitis of unspecified part of limb L03.119 Active 140961091 Problem Gastroesophageal reflux disease without esophagitis K21.9 Active 552430549 Problem History of pulmonary embolism Z86.711 Active 697436978 Problem Pseudotumor cerebri G93.2 Active 15838558 Problem History of DVT (deep vein thrombosis) Z86.718 Active 153629518 ALLERGIES No Information ENCOUNTERS Encounter Location Date Diagnosis [place] [address] [facility] [id number] [address] [place] [address] Apr, manager 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 (current) use of 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 Z79.01 [place] [facility] [id number] [address] [place] [address] Apr, manager 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.01 [place] [facility] [id number] [address] [place] [address] Apr, Cellulitis of unspecified pa rt of limb L03.119 ; Allergic contact dermatitis due to adhesives L23.1 and Chronic pain syndrome G89.4 [facility] [address] [facility] [id number] [address] [place] [address] Apr, [place] [facility] [id number] [address] [place] [address] Apr, [facility]DC 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.01 ; Cellulitis of unspecified part of limb L03.119 ; Chronic pain syndrome G89.4 and Anxiety F41.9 [place] [address] [place] [id number] [address] [place] [address] 16 Apr, 2015 [place] [address] [place] [id number] [place] [address] Apr, [place] [address] [address] Mar, [place] [address] [place] [id number] [place] [address] Mar, [place] [address] [address] Mar, Sore throat J02.9 ; Gastroes ophageal reflux disease without esophagitis K21.9 ; Pseudotumor cerebri G93.2 ; Chronic pain syndrome G89.4 ; Choriocarcinoma C58 ; History of pulmonary embolism Z86.711 ; History of DVT (deep vein thrombosis) Z86.718 ; Anxiety F41.9 and Tachycardia R00.0 [place] [address] [address] Feb, Anxiety 300.00 and Chronic p ain 338.29 [place] [address] [place] [id number] [address] [place] [address] Feb, [place] [id number] [place] [address] Feb, [place] [address] [place] [id number] [place] [address] Jan, [facility]DC 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 therapy V58.61 and Dysuria 788.1 [place] [address] [place] [id number] [address] [place] [address] Jan, Dysuria 788.1 [place] [address] [place] [id number] [place] [address] Jan, Anxiety 300.00 and Chronic p ain 338.29 [place] [address] [address] Jan, [facility] [address] [address] Jan, [place] [address] [address] Jan, [place] [address] [address] Dec, Weakness 780.79 [place] [address] [address] Dec, manager 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 therapy V58.61 [place] [address] [address] Dec, Palpitations 785.1 ; Tremor 781.0 ; Weakness 780.79 ; [facility]DC 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 therapy V58.61 and Yeast vaginitis 112.1 [place] [address] [address] Dec, [place] [address] [address] Dec, Cervicalgia 723.1 ; Tachycar yoseph 785.0 ; Pseudotumor cerebri 348.2 and History of venous thromboembolism V12.51 [place] [address] [place] [id number] [address] [place] [address] Nov, [place] [address] [address] Nov, [place] [address] [address] Nov, Tachycardia 785.0 ; Pseudotu mor cerebri 348.2 ; Anxiety 300.00 and History of venous thromboembolism V12.51 [facility] [address] [id number] [address] [place] [address], [place] [address] Nov, [facility] [address] [id number] [address] [place] [address], [place] [address] 18 Nov, 2014 [facility] [address] [id number] [address] [place] [address], [place] [address] 16 Nov, 2014 [facility] [address] [id number] [address] [place] [address], [place] [address] Nov, [facility] [address] [id number] [address] [place] [address], [place] [address] Nov, [facility] [address] [id number] [address] [place] [address], [place] [address] Nov, [facility] [address] [id number] [address] [place] [address], [place] [address] Nov, [facility] [address] [id number] [address] [place] [address] October, [facility] [address] [id number] [address] [place] [address] October, [facility] [address] [id number] [address] [place] [address] October, Pain in thoracic spine 724.1 and Tachycardia 785.0 [facility] [address] [id number] [address] [place] [address] October, [facility] [address] [id number] [address] [place] [address] October, [facility] [address] [id number] [address] [place] [address] Sep, [facility] [address] [id number] [address] [place] [address] Sep, [facility] [address] [id number] [address] [place] [address] Aug, [facility] [address] [id number] [address] [place] [address], [place] [address] Aug, [facility] [address] [id number] [address] [place] [address], [place] [address] Aug, [facility] [address] [id number] [address] [place] [address], [place] [address] 17 Aug, 2014 [facility] [address] [id number] [address] [place] [address], [place] [address] Aug, [facility] [address] [id number] [address] [place] [address], [place] [address] 16 Aug, 2014 [facility] [address] [id number] [address] [place] [address], [place] [address] Aug, [facility] [address] [id number] [address] [place] [address], [place] [address] Aug, [facility] [address] [id number] [address] [place] [address], [place] [address] Aug, 2014 [facility] [address] [id number] [address] [place] [address], [place] [address] Aug, [facility] [address] [id number] [address] [place] [address], [place] [address] Aug, [facility] [address] [id number] [address] [place] [address], [place] [address] Aug, [facility] [address] [id number] [address] [place] [address], [place] [address] Jul, 2014 [facility] [address] [id number] [address] [place] [address], [place] [address] Jul, 2014 [facility] [address] [id number] [address] [place] [address], [place] [address] Jul, 2014 [facility] [address] [id number] [address] [place] [address], [place] [address] Jul, 2014 [facility] [address] [id number] [address] [place] [address], [place] [address] b, 2014 [facility] [address] [id number] [address] [place] [address], [place] [address] 23 Jul, 2014 [facility] [address] [id number] [address] [place] [address], [place] [address] 23 Jul, 2014 [facility] [address] [id number] [address] [place] [address], [place] [address] 23 Jul, 2014 [facility] [address] [id number] [address] [place] [address], [place] [address] 20 Jul, 2014 [facility] [address] [id number] [address] [place] [address], [place] [address] 20 Jul, 2014 [facility] [address] [id number] [address] [place] [address], [place] [address] 19 Jul, 2014 [facility] [address] [id number] [address] [place] [address], [place] [address] 19 Jul, 2014 [facility] [address] [id number] [address] [place] [address], [place] [address] 17 Jul, 2014 [facility] [address] [id number] [address] [place] [address], [place] [address] 17 Jul, 2014 [facility] [address] [id number] [address] [place] [address], [place] [address] 16 Jul, 2014 [facility] [address] [id number] [address] [place] [address], [place] [address] 16 Jul, 2014 [facility] [address] [id number] [address] [place] [address], [place] [address] 16 Jul, 2014 [facility] [address] [id number] [address] [place] [address], [place] [address] 16 Jul, 2014 [facility] [address] [id number] [address] [place] [address], [place] [address] 13 Jul, 2014 [facility] [address] [id number] [address] [place] [address], [place] [address] Jul, 2014 [facility] [address] [id number] [address] [place] [address], [place] [address] Jul, 2014 [facility] [address] [id number] [address] [place] [address], [place] [address] Jul, 2014 [facility] [address] [id number] [address] [place] [address], [place] [address] Jul, 2014 [facility] [address] [id number] [address] [place] [address], [place] [address] Jul, 2014 [facility] [address] [id number] [address] [place] [address], [place] [address] Jul, [facility] [address] [id number] [address] [place] [address], [place] [address] Jul, [facility] [address] [id number] [address] [place] [address], [place] [address] Jul, [facility] [address] [id number] [address] [place] [address], [place] [address] Jul, [facility] [address] [id number] [address] [place] [address], [place] [address] Jul, [facility] [address] [id number] [address] [place] [address], [place] [address] Jul, [facility] [address] [id number] [address] [place] [address], [place] [address] Jun, [facility] [address] [id number] [address] [place] [address], [place] [address] Jun, [facility] [address] [id number] [address] [place] [address], [place] [address] Jun, [facility] [address] [id number] [address] [place] [address], [place] [address] Jun, [facility] [address] [id number] [address] [place] [address], [place] [address] Jun, [facility] [address] [id number] [address] [place] [address], [place] [address] Jun, [facility] [address] [id number] [address] [place] [address], [place] [address] Jun, [facility] [address] [id number] [address] [place] [address], [place] [address] Jun, [facility] [address] [id number] [address] [place] [address], [place] [address] Jun, [facility] [address] [id number] [address] [place] [address], [place] [address] Jun, [facility] [address] [id number] [address] [place] [address], [place] [address] Jun, [facility] [address] [id number] [address] [place] [address], [place] [address] Jun, [facility] [address] [id number] [address] [place] [address], [place] [address] Jun, [facility] [address] [id number] [address] [place] [address], [place] [address] Jun, [facility] [address] [id number] [address] [place] [address], [place] [address] Jun, [facility] [address] [id number] [address] [place] [address], [place] [address] Jun, [facility] [address] [id number] [address] [place] [address], [place] [address] Jun, [facility] [address] [id number] [address] [place] [address], [place] [address] Jun, [facility] [address] [id number] [address] [place] [address], [place] [address] Jun, [facility] [address] [id number] [address] [place] [address], [place] [address] Jun, [facility] [address] [id number] [address] [place] [address], [place] [address] May, [facility] [address] [id number] [address] [place] [address], [place] [address] May, [facility] [address] [id number] [address] [place] [address], [place] [address] May, [facility] [address] [id number] [address] [place] [address], [place] [address] May, [facility] [address] [id number] [address] [place] [address], [place] [address] May, [facility] [address] [id number] [address] [place] [address], [place] [address] May, [facility] [address] [id number] [address] [place] [address], [place] [address] May, [facility] [address] [id number] [address] [place] [address], [place] [address] May, [facility] [address] [id number] [address] [place] [address], [place] [address] May, [facility] [address] [id number] [address] [place] [address], [place] [address] May, [facility] [address] [id number] [address] [place] [address], [place] [address] May, [facility] [address] [id number] [address] [place] [address], [place] [address] 18 May, 2014 [facility] [address] [id number] [address] [place] [address], [place] [address] 18 May, 2014 [facility] [address] [id number] [address] [place] [address], [place] [address] 17 May, 2014 [facility] [address] [id number] [address] [place] [address], [place] [address] 16 May, 2014 [facility] [address] [id number] [address] [place] [address], [place] [address] 16 May, 2014 [facility] [address] [id number] [address] [place] [address], [place] [address] 15 May, 2014 [facility] [address] [id number] [address] [place] [address], [place] [address] 15 May, 2014 [facility] [address] [id number] [address] [place] [address], [place] [address] May, [facility] [address] [id number] [address] [place] [address], [place] [address] May, [facility] [address] [id number] [address] [place] [address], [place] [address] May, [facility] [address] [id number] [address] [place] [address], [place] [address] May, [facility] [address] [id number] [address] [place] [address], [place] [address] May, [facility] [address] [id number] [address] [place] [address], [place] [address] May, [facility] [address] [id number] [address] [place] [address], [place] [address] May, [facility] [address] [id number] [address] [place] [address], [place] [address] May, [facility] [address] [id number] [address] [place] [address], [place] [address] May, [facility] [address] [id number] [address] [place] [address], [place] [address] May, [facility] [address] [id number] [address] [place] [address], [place] [address] May, [facility] [address] [id number] [address] [place] [address], [place] [address] May, [facility] [address] [id number] [address] [place] [address], [place] [address] May, [facility] [address] [id number] [address] [place] [address], [place] [address] May, [facility] [address] [id number] [address] [place] [address], [place] [address] May, [facility] [address] [id number] [address] [place] [address], [place] [address] May, [facility] [address] [id number] [address] [place] [address], [place] [address] Apr, [facility] [address] [id number] [address] [place] [address], [place] [address] Apr, [facility] [address] [id number] [address] [place] [address], [place] [address] Apr, [facility] [address] [id number] [address] [place] [address], [place] [address] Apr, [facility] [address] [id number] [address] [place] [address], [place] [address] Apr, [facility] [address] [id number] [address] [place] [address], [place] [address] Apr, [facility] [address] [id number] [address] [place] [address], [place] [address] Apr, [facility] [address] [id number] [address] [place] [address], [place] [address] Apr, [facility] [address] [id number] [address] [place] [address], [place] [address] Apr, [facility] [address] [id number] [address] [place] [address], [place] [address] Apr, [facility] [address] [id number] [address] [place] [address], [place] [address] Mar, [facility] [address] [id number] [address] [place] [address], [place] [address] Mar, [facility] [address] [id number] [address] [place] [address], [place] [address] Mar, [facility] [address] [id number] [address] [place] [address], [place] [address] 31 Mar, 2013 [facility] [address] [id number] [address] [place] [address], [place] [address] 30 Mar, 2013 [facility] [address] [id number] [address] [place] [address], [place] [address] 30 Mar, 2014 [facility] [address] [id number] [address] [place] [address], [place] [address] Mar, 2013 [facility] [address] [id number] [address] [place] [address], [place] [address] 17 Mar, 2013 [facility] [address] [id number] [address] [place] [address], [place] [address] 15 Mar, 2014 [facility] [address] [id number] [address] [place] [address] 15 Mar, 2014 [facility] [address] [id number] [address] [place] [address], [place] [address] 15 Mar, 2014 [facility] [address] [id number] [address] [place] [id number] Mar, [facility] [address] [id number] [address] [place] [address], [place] [address] Mar, [facility] [address] [id number] [address] [place] [address] Mar, [facility] [address] [id number] [address] [place] [address] Mar, [facility] [address] [id number] [address] [place] [id number] Mar, 2013 [facility] [address] [id number] [address] [place] [address], [place] [address] Mar, [facility] [address] [id number] [address] [place] [address] Mar, [facility] [address] [id number] [address] [place] [address] Mar, 2013 [facility] [address] [id number] [address] [place] [address], [place] [address] 02 Mar, 2013 [facility] [address] [id number] [address] [place] [address], [place] [address] 05 Sep, 2013 [facility] [address] [id number] [address] [place] [address], [place] [address] 05 Sep, 2013 [facility] [address] [id number] [address] [place] [address], [place] [address] 04 Sep, 2013 [facility] [address] [id number] [address] [place] [address], [place] [address] 04 Sep, 2013 [facility] [address] [id number] [address] [place] [address], [place] [address] 03 Feb, 2013 [facility] [address] [id number] [address] [place] [address], [place] [address] Feb, 2013 [facility] [address] [id number] [address] [place] [address], [place] [address] Feb, 2013 [facility] [address] [id number] [address] [place] [address], [place] [address] Feb, 2013 [facility] [address] [id number] [address] [place] [address], [place] [address] Feb, 2013 [facility] [address] [id number] [address] [place] [address], [place] [address] Feb, 2013 [facility] [address] [id number] [address] [place] [address], [place] [address] Jan, [facility] [address] [id number] [address] [place] [address], [place] [address] Jan, [facility] [address] [id number] [address] [place] [address], [place] [address] Jan, [facility] [address] [id number] [address] [place] [address], [place] [address] Jan, [facility] [address] [id number] [address] [place] [address], [place] [address] Jan, [facility] [address] [id number] [address] [place] [address], [place] [address] Jan, [facility] [address] [id number] [address] [place] [address], [place] [address] Jan, [facility] [address] [id number] [address] [place] [address], [place] [address] Jan, [facility] [address] [id number] [address] [place] [address], [place] [address] Jan, [facility] [address] [id number] [address] [place] [address], [place] [address] Jan, [facility] [address] [id number] [address] [place] [address], [place] [address] Jan, [facility] [address] [id number] [address] [place] [address], [place] [address] Jan, [facility] [address] [id number] [address] [place] [address], [place] [address] Dec, [facility] [address] [id number] [address] [place] [address], [place] [address] Dec, [facility] [address] [id number] [address] [place] [address], [place] [address] Dec, [facility] [address] [id number] [address] [place] [address], [place] [address] Dec, [facility] [address] [id number] [address] [place] [address], [place] [address] Dec, [facility] [address] [id number] [address] [place] [address], [place] [address] Dec, [facility] [address] [id number] [address] [place] [address], [place] [address] Dec, [facility] [address] [id number] [address] [place] [address], [place] [address] Dec, [facility] [address] [id number] [address] [place] [address], [place] [address] Dec, [facility] [address] [id number] [address] [place] [address], [place] [address] Dec, [facility] [address] [id number] [address] [place] [address], [place] [address] Dec, [facility] [address] [id number] [address] [place] [address], [place] [address] Dec, [facility] [address] [id number] [address] [place] [address], [place] [address] Nov, [facility] [address] [id number] [address] [place] [address], [place] [address] Nov, [facility] [address] [id number] [address] [place] [address], [place] [address] Nov, [facility] [address] [id number] [address] [place] [address], [place] [address] Nov, [facility] [address] [id number] [address] [place] [address], [place] [address] Nov, [facility] [address] [id number] [address] [place] [address], [place] [address] Nov, [facility] [address] [id number] [address] [place] [address], [place] [address] Nov, [facility] [address] [id number] [address] [place] [address], [place] [address] Nov, [facility] [address] [id number] [address] [place] [address] Nov, [facility] [address] [id number] [address] [place] [address], [place] [address] Nov, [facility] [address] [id number] [address] [place] [address], [place] [address] Nov, [facility] [address] [id number] [address] [place] [address], [place] [address] Nov, [facility] [address] [id number] [address] [place] [address], [place] [address] Nov, [facility] [address] [id number] [address] [place] [address], [place] [address] Nov, [facility] [address] [id number] [address] [place] [address], [place] [address] October, [facility] [address] [id number] [address] [place] [address], [place] [address] October, [facility] [address] [id number] [address] [place] [address], [place] [address] October, [facility] [address] [id number] [address] [place] [address], [place] [address] October, [facility] [address] [id number] [address] [place] [address], [place] [address] October, [facility] [address] [id number] [address] [place] [address], [place] [address] October, [facility] [address] [id number] [address] [place] [address], [place] [address] October, [facility] [address] [id number] [address] [place] [address], [place] [address] October, [facility] [address] [id number] [address] [place] [address], [place] [address] October, [facility] [address] [id number] [address] [place] [address], [place] [address] October, [facility] [address] [id number] [address] [place] [address], [place] [address] October, [facility] [address] [id number] [address] [place] [address], [place] [address] October, [facility] [address] [id number] [address] [place] [address], [place] [address] Sep, [facility] [address] [id number] [address] [place] [address], [place] [address] Sep, [facility] [address] [id number] [facility] [place] [address] Sep, [facility] [address] [id number] [address] [place] [address], [place] [address] Sep, [facility] [address] [id number] [address] [place] [address], [place] [address] Sep, [facility] [address] [id number] [address] [place] [address], [place] [address] Sep, [facility] [address] [id number] [address] [place] [address], [place] [address] Aug, [facility] [address] [id number] [address] [place] [address], [place] [address] Aug, [facility] [address] [id number] [address] [place] [address], [place] [address] Aug, [facility] [address] [id number] [address] [place] [address], [place] [address] Aug, [facility] [address] [id number] [address] [place] [address], [place] [address] Aug, [facility] [address] [id number] [address] [place] [address], [place] [address] Aug, [facility] [address] [id number] [address] [place] [address], [place] [address] Jul, [facility] [address] [id number] [address] [place] [address], [place] [address] Jul, [facility] [address] [id number] [address] [place] [address], [place] [address] Jul, [facility] [address] [id number] [address] [place] [address], [place] [address] Jul, [facility] [address] [id number] [address] [place] [address], [place] [address] Jul, [facility] [address] [id number] [address] [place] [address], [place] [address] 13 Jul, 2013 [facility] [address] [id number] [address] [place] [address], [place] [address] Jul, [facility] [address] [id number] [address] [place] [address], [place] [address] Jul, [facility] [address] [id number] [address] [place] [address], [place] [address] Jul, [facility] [address] [id number] [address] [place] [address], [place] [address] Jul, [facility] [address] [id number] [address] [place] [address], [place] [address] Jun, [facility] [address] [id number] [address] [place] [address], [place] [address] Jun, [facility] [address] [id number] [address] [place] [address], [place] [address] Jun, [facility] [address] [id number] [address] [place] [address], [place] [address] Jun, [facility] [address] [id number] [address] [place] [address], [place] [address] Jun, [facility] [address] [id number] [address] [place] [address], [place] [address] Jun, [facility] [address] [id number] [address] [place] [address], [place] [address] Jun, [facility] [address] [id number] [address] [place] [address], [place] [address] Jun, [facility] [address] [id number] [address] [place] [address], [place] [address] May, [facility] [address] [id number] [address] [place] [address], [place] [address] May, [facility] [address] [id number] [address] [place] [address] [address] May, [facility] [address] [id number] [address] [place] [address], [place] [address] May, [facility] [address] [id number] [address] [place] [address], [place] [address] May, [facility] [address] [id number] [address] [place] [address], [place] [address] May, [facility] [address] [id number] [address] [place] [address], [place] [address] May, [facility] [address] [id number] [address] [place] [address], [place] [address] May, [facility] [address] [id number] [address] [place] [address], [place] [address] Apr, [facility] [address] [id number] [address] [place] [address], [place] [address] Apr, [facility] [address] [id number] [address] [place] [address] Apr, [facility] [address] [id number] [address] [place] [address] Apr, [facility] [address] [id number] [address] [place] [address] Apr, [facility] [address] [id number] [address] [place] [address] Apr, [facility] [address] [id number] [address] [place] [address] Mar, [facility] [address] [id number] [address] [place] [address] Mar, [facility] [address] [id number] [address] [place] [address] Mar, [facility] [address] [id number] [address] [place] [address] Mar, [facility] [address] [id number] [address] [place] [address], [place] [address] Mar, [facility] [address] [id number] [address] [place] [address], [place] [address] Mar, [facility] [address] [id number] [address] [place] [address], [place] [address] Mar, [facility] [address] [id number] [address] [place] [address], [place] [address] 30 Feb, 2013 [facility] [address] [id number] [address] [place] [address], [place] [address] 30 Feb, 2013 [facility] [address] [id number] [address] [place] [address], [place] [address] 27 Feb, 2013 [facility] [address] [id number] [address] [place] [address], [place] [address] Feb, [facility] [address] [id number] [address] [place] [address], [place] [address] Feb, [facility] [address] [id number] [address] [place] [address], [place] [address] Feb, [facility] [address] [id number] [address] [place] [address], [place] [address] Jan, [facility] [address] [id number] [address] [place] [address], [place] [address] Jan, [facility] [address] [id number] [address] [place] [address], [place] [address] Jan, [facility] [address] [id number] [address] [place] [address], [place] [address] Jan, [facility] [address] [id number] [address] [place] [address], [place] [address] Jan, [facility] [address] [id number] [address] [place] [address], [place] [address] Jan, [facility] [address] [id number] [address] [place] [address], [place] [address] Jan, [facility] [address] [id number] [address] [place] [address], [place] [address] Jan, [facility] [address] [id number] [address] [place] [address], [place] [address] Jan, [facility] [address] [id number] [address] [place] [address], [place] [address] Dec, [facility] [address] [id number] [address] [place] [address], [place] [address] Dec, [facility] [address] [id number] [address] [place] [address], [place] [address] Dec, [facility] [address] [id number] [address] [place] [address], [place] [address] Dec, [facility] [address] [id number] [address] [place] [address], [place] [address] Dec, [facility] [address] [id number] [address] [place] [address], [place] [address] Dec, [facility] [address] [id number] [address] [place] [address], [place] [address] Dec, [facility] [address] [id number] [address] [place] [address], [place] [address] Dec, [facility] [address] [id number] [address] [place] [address], [place] [address] Dec, [facility] [address] [id number] [address] [place] [address], [place] [address] Dec, [facility] [address] [id number] [address] [place] [address], [place] [address] Dec, [facility] [address] [id number] [address] [place] [address], [place] [address] Dec, [facility] [address] [id number] [address] [place] [address], [place] [address] Dec, [facility] [address] [id number] [address] [place] [address], [place] [address] Nov, [facility] [address] [id number] [address] [place] [address], [place] [address] Nov, [facility] [address] [id number] [address] [place] [address], [place] [address] Nov, [facility] [address] [id number] [address] [place] [address], [place] [address] Nov, [facility] [address] [id number] [address] [place] [address], [place] [address] October, [facility] [address] [id number] [address] [place] [address], [place] [address] October, [facility] [address] [id number] [address] [place] [address], [place] [address] October, [facility] [address] [id number] [address] [place] [address], [place] [address] October, [facility] [address] [id number] [address] [place] [address], [place] [address] October, [facility] [address] [id number] [address] [place] [address], [place] [address] October, [facility] [address] [id number] [address] [place] [address], [place] [address] 30 Sep, 2012 [facility] [address] [id number] [address] [place] [address], [place] [address] 29 Sep, 2012 [facility] [address] [id number] [address] [place] [address], [place] [address] 27 Sep, 2012 [facility] [address] [id number] [address] [place] [address], [place] [address] 23 Sep, 2012 [facility] [address] [id number] [address] [place] [address], [place] [address] Sep, [facility] [address] [id number] [address] [place] [address], [place] [address] 16 Sep, 2012 [facility] [address] [id number] [facility] [place] [address] 12 Sep, 2012 [facility] [address] [id number] [address] [place] [address], [place] [address] Sep, [facility] [address] [id number] [address] [place] [address], [place] [address] Sep, [facility] [address] [id number] [address] [place] [address], [place] [address] Sep, [facility] [address] [id number] [address] [place] [address], [place] [address] Sep, [facility] [address] [id number] [address] [place] [address], [place] [address] Aug, [facility] [address] [id number] [address] [place] [address], [place] [address] Aug, [facility] [address] [id number] [address] [place] [address], [place] [address] 25 Aug, 2012 [facility] [address] [id number] [address] [place] [address], [place] [address] 21 Aug, 2012 [facility] [address] [id number] [address] [place] [address], [place] [address] 19 Aug, 2012 [facility] [address] [id number] [address] [place] [address], [place] [address] 18 Aug, 2012 [facility] [address] [id number] [address] [place] [address], [place] [address] 17 Aug, 2012 [facility] [address] [id number] [address] [place] [address], [place] [address] 15 Aug, 2012 [facility] [address] [id number] [address] [place] [address], [place] [address] 15 Aug, 2012 [facility] [address] [id number] [address] [place] [address], [place] [address] 11 Aug, 2012 [facility] [address] [id number] [address] [place] [address], [place] [address] Aug, [facility] [address] [id number] [address] [place] [address], [place] [address] Aug, [facility] [address] [id number] [address] [place] [address], [place] [address] Jul, [facility] [address] [id number] [address] [place] [address], [place] [address] Jul, [facility] [address] [id number] [address] [place] [address], [place] [address] Jul, [facility] [address] [id number] [address] [place] [address], [place] [address] Jul, [facility] [address] [id number] [address] [place] [address], [place] [address] Jul, [facility] [address] [id number] [address] [place] [address], [place] [address] Jul, [facility] [address] [id number] [address] [place] [address], [place] [address] Jul, [facility] [address] [id number] [address] [place] [address], [place] [address] Jul, [facility] [address] [id number] [address] [place] [address], [place] [address] Jul, [facility] [address] [id number] [address] [place] [id number] Jul, [facility] [address] [id number] [address] [place] [id number] May, [facility] [address] [id number] [place] [id number] May, [facility] [address] [id number] [address] [place] [id number] May, [facility] [address] [id number] [address] [place] [address], [place] [address] 14 May, 2012 [facility] [address] [id number] [address] [place] [address], [place] [address] May, [facility] [address] [id number] [address] [place] [address], [place] [address] Apr, [facility] [place] [address] [id number] [place] [id number] Apr, [facility] [address] [facility] [id number] [address] [place] [address], [place] [address] Apr, [facility] [address] [facility] [id number] [address] [place] [address], [place] [address] Mar, [facility] [place] [address] [id number] [place] [id number] Mar, [facility] [address] [facility] [id number] [address] [place] [address], [place] [address] Mar, [facility] [place] [address] [id number] [place] [id number] Feb, [facility] [address] [facility] [id number] [address] [place] [address], [place] [address] Feb, [facility] [address] [facility] [id number] [address] [place] [address], [place] [address] Feb, [facility] [place] [address] [id number] [place] [id number] Feb, [facility] [place] [address] [id number] [place] [id number] Feb, [facility] [address] [id number] [place] [id number] Jan, [facility] [address] [id number] [address] [place] [address], [place] [address] Jan, [facility] [place] [address] [id number] [place] [id number] Jan, [facility] [place] [address] [id number] [place] [id number] Jan, [facility] [place] [address] [id number] [place] [id number] Jan, [facility] [address] [id number] [address] [place] [address], [place] [address] Jan, [facility] [address] [facility] [id number] [address] [place] [address], [place] [address] Jan, [facility] [address] [facility] [id number] [address] [place] [address], [place] [address] Aug, [facility] [place] [address] [facility] [id number] [place] [id number] Aug, [facility] [address] [facility] [id number] [address] [place] [address], [place] [address] Jul, [facility] [address] [facility] [id number] [address] [place] [address], [place] [address] Jul, [facility] [address] [facility] [id number] [address] [place] [address], [place] [address] Jul, [facility] [place] [address] [facility] [id number] [place] [id number] Jul, [facility] [address] [facility] [id number] [address] [place] [address], [place] [address] Jul, [facility] [place] [address] [facility] [id number] [place] [id number] Jul, [facility] [address] [facility] [id number] [address] [place] [address], [place] [address] Jul, [facility] [place] [address] [id number] [place] [id number] Jul, [facility] [place] [address] [id number] [place] [id number] Jul, [facility] [place] [address] [id number] [place] [id number] Jul, [facility] [address] [facility] [id number] [address] [place] [address], [place] [address] May, [facility] [address] [facility] [id number] [address] [place] [address], [place] [address] May, [facility] [address] [id number] [address] [place] [id number] May, [facility] [address] [id number] [address] [place] [address] Apr, [facility] [address] [id number] [address] [place] [phone] Jan, [facility] [address] [id number] [address] [place] [id number] Jan, [facility] [address] [id number] [address] [place] [id number] Dec, [facility] [address] [id number] [address] [place] [id number] Dec, [facility] [address] [id number] [address] [place] [id number] 16 May, 2009 [facility] [address] [id number] [address] [place] [phone] Mar, [facility] [address] [id number] [address] [place] [id number] Mar, [facility] [address] [id number] [address] [place] [id number] Jan, IMMUNIZATIONS No Known Immunizations SOCIAL HISTORY [...]
--- NOTE | 2020-01-28 12:22 | ED Chest Pain ---
General Chief Complaint: Chest Pain Stated Complaint: CHEST PAIN, ABNORMAL EKG Nursing Triage Note: ARRIVED VIA AMB TO ROOM 08 FROM [facility]. STATES SHE WAS AT WORK THIS AM WHEN SHE STARTED HAVING A BURNING OF HER CHEST. DENIES CHEST PAIN AT THIS TIME. Nursing Sepsis Screen: No Definite Risk Source: patient, old records Exam Limitations: no limitations History of Present Illness Date Seen by Provider: Jan 28, 2020 Time Seen by Provider: 11:49 Initial Comments This 44-year-old woman presents to the emergency room as a referral from [facility] with complaints of chest pain that started about an hour prior to arrival. She had been sitting at work when she suddenly experienced a sharp pain through her chest radiating to her back and jaw. She had a similar sensation several days ago and had a visit to urgent care at that time. Labs performed on January 25 were unremarkable. Troponin was negative. INR was 2.5. Patient is anticoagulated with warfarin due to history of antiphospholipid antibody syndrome and pulmonary embolus. Patient is also under the care of Dr. Smart and Dr. Stiles because of palpitations and tachycardia. She is wearing a Holter monitor or presently. Review of her chart notes a negative stress echo in 2014. She also had a Holter monitor placed last year. She had sinus rhythm with PACs and PVCs. No sustained arrhythmia was noted. EKG from [facility] [place] [facility] depression in the inferior and lateral leads that caused concern. Patient reports a little bit of chest pressure in route to the hospital but denies pain at this time. Allergies and Home Medications Allergies Coded Allergies: Sulfa (Sulfonamide Antibiotics) (Unverified Allergy, Severe, PER PT "THROAT SWELLS", 09/11/11) bupropion (Unverified Allergy, Severe, IRREG HEART RATE, 10/21/14) amoxicillin (Unverified Allergy, Mild, RASH AND VISUAL DISTURBANCES/VISUAL LOSS, 03/21/15) PER PT REPORT clavulanic acid (Unverified Allergy, Mild, RASH AND VISUAL DISTURBANCES/VISUAL LOSS, 03/21/15) PER PT REPORT cefuroxime axetil (Unverified Allergy, Unknown, PER PATIENT CAN TAKE ROCEPHIN, 03/21/15) PER [facility] PATIENT RECEIVED ROCEPHIN ON 02/23 WITHOUT ISSUE ciprofloxacin (Verified Allergy, Unknown, 03/14/19) levofloxacin (Unverified Allergy, Unknown, Tachycardia, 05/10/18) lidocaine (Verified Allergy, Unknown, 03/14/19) cefdinir (Unverified Adverse Reaction, Unknown, 07/23/19) tramadol (Unverified Adverse Reaction, Unknown, HEADACHE, 01/05/15) Uncoded Allergies: PENICILLIN (Allergy, Mild, RASH, 03/21/15) PER PT REPORT Home Medications Acetazolamide 125 Mg Tablet, 62.5 MG PO DAILY, (Reported) Capsaicin 1 Each Adh..patch, 1 EACH TP BID PRN for PAIN-MODERATE Prescribed by: AMPARO WHITE on 02/10/17 1525 Cholestyramine/Aspartame 4 G/Pkt Packet, 2 G PO HS, (Reported) PT STATES ONLY TAKES HALF DOSE NOW (2G) AND MIXES IT WITH WATER Cyclobenzaprine Hcl 10 Mg Tablet, 0.5 TAB PO HS, (Reported) Famotidine 20 Mg Tablet, 20 MG PO BID Prescribed by: ALEXANDREA JORDAN on 01/28/20 1628 Hydrocodone Bit/Acetaminophen 1 Each Tablet, 0.5 EACH PO Q4H PRN, (Reported) PT STATES TAKES 1/2 TAB Q4-6H PRN PAIN D/T INCREASED DOSE CAUSES DROWSINESS Hydroxyzine Pamoate 25 Mg Cap, 25 MG PO PRN, (Reported) Nebivolol HCl 10 Mg Tab, 15 MG PO DAILY, (Reported) Warfarin Sodium 5 Mg Tablet, 5 MG PO DAILY, (Reported) Warfarin Sodium 7.5 Mg Tablet, 7.5 MG PO DAILY, (Reported) 7.5 MG TWO DAYS A WEEK Patient Home Medication List Home Medication List Reviewed: Yes Review of Systems Review of Systems Constitutional: no symptoms reported EENTM: No Symptoms Reported Respiratory: No Symptoms Reported Cardiovascular: See HPI Gastrointestinal: No Symptoms Reported Genitourinary: No Symptoms Reported Musculoskeletal: no symptoms reported Skin: no symptoms reported Psychiatric/Neurological: No Symptoms Reported Endocrine: No Symptoms Reported Hematologic/Lymphatic: No Symptoms Reported Past Yhbfuft-Ltivso-Ksooyd Hx Past Med/Social Hx: Reviewed Nursing Past Med/Soc Hx Patient Social History Alcohol Use: Denies Use Recreational Drug Use: No Type Used: Cigarettes 2nd Hand Smoke Exposure: Yes (smokes and uses hubert) Recent Foreign Travel: No Contact w/Someone Who Travel: No Recent Infectious Disease Expo: No Recent Hopitalizations: No Immunizations Up To Date Tetanus Booster (TDap): More than 5yrs PED Vaccines UTD: No Date of Influenza Vaccine: Mar 23, 2018 Seasonal Allergies Seasonal Allergies: No Past Medical History Surgeries: Yes (L SHOULDERX2, DNC) Section, Gallbladder, Hysterectomy, Orthopedic Respiratory: Yes Pulmonary Embolism Cardiac: Yes (TACHYCARDIA, POTS SYNDROME, NORMAL STRESS TEST 11/2014) Chronic Edema/Swelling, Hypertension, Palpitations Neurological: Yes (PSEUDOTUMOR CEREBRI DX 12/2009) Headaches /Migraines Reproductive Disorders: Yes (CHORIOCARCINOMA, MULTIPLE MISCARRIAGES) Female Reproductive Disorders: Endometriosis 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 07/2009) Uterine Psychosocial: Yes Anxiety Integumentary: No Blood Disorders: No Family Medical History No Pertinent Family Hx Physical Exam Vital Signs Vital Signs - First Documented 01/28/20 12:05 Temp 37.0 Pulse 80 Resp 16 B/P (MAP) 144/90 (108) Pulse Ox 100 O2 Delivery Room Air Capillary Refill : Less Than 3 Seconds Height, Weight, BMI Height: 5'3.00" Weight: 168lbs. 0.0oz. 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 Norm as Tested Skin: Normal Color, Warm/Dry Progress/Results/Core Measures Results/Orders Lab Results Laboratory Tests Test 01/28/20 12:00 01/28/20 14:50 Range/Units White Blood Count 11.4 H 4.3-11.0 10^3/uL Red Blood Count 4.65 4.35-5.85 10^6/uL Hemoglobin 15.0 11.5-16.0 G/DL Hematocrit 43 35-52 % Mean Corpuscular Volume 92 80-99 FL Mean Corpuscular Hemoglobin 32 25-34 PG Mean Corpuscular Hemoglobin Concent 35 32-36 G/DL Red Cell Distribution Width 12.7 10.0-14.5 % Platelet Count 333 130-400 10^3/uL Mean Platelet Volume 8.9 7.4-10.4 FL Neutrophils (%) (Auto) 66 42-75 % Lymphocytes (%) (Auto) 26 12-44 % Monocytes (%) (Auto) 7 0-12 % Eosinophils (%) (Auto) 1 0-10 % Basophils (%) (Auto) 0 0-10 % Neutrophils # (Auto) 7.5 1.8-7.8 X 10^3 Lymphocytes # (Auto) 3.0 1.0-4.0 X 10^3 Monocytes # (Auto) 0.8 0.0-1.0 X 10^3 Eosinophils # (Auto) 0.1 0.0-0.3 10^3/uL Basophils # (Auto) 0.0 0.0-0.1 10^3/uL Prothrombin Time 27.1 H 12.2-14.7 SEC INR Comment 2.5 H 0.8-1.4 Activated Partial Thromboplast Time 41 H 24-35 SEC Sodium Level 139 135-145 MMOL/L Potassium Level 3.2 L 3.6-5.0 MMOL/L Chloride Level 99 98-107 MMOL/L Carbon Dioxide Level 26 21-32 MMOL/L Anion Gap 14 5-14 MMOL/L Blood Urea Nitrogen 12 7-18 MG/DL Creatinine 0.75 0.60-1.30 MG/DL Estimat Glomerular Filtration Rate > 60 BUN/Creatinine Ratio 16 Glucose Level 94 70-105 MG/DL Calcium Level 9.5 8.5-10.1 MG/DL Corrected Calcium 8.5-10.1 MG/DL Magnesium Level 1.9 1.6-2.4 MG/DL Total Bilirubin 0.5 0.1-1.0 MG/DL Aspartate Amino Transf (AST/SGOT) 27 5-34 U/L Alanine Aminotransferase (ALT/SGPT) 28 0-55 U/L Alkaline Phosphatase 63 40-136 U/L Myoglobin 86.8 10.0-92.0 NG/ML Troponin I < 0.028 < 0.028 <0.028 NG/ML Total Protein 7.9 6.4-8.2 GM/DL Albumin 4.7 H 3.2-4.5 GM/DL My Orders Orders - ALEXANDREA LIM MD Cbc With Automated Diff (01/28/20 11:58) Magnesium (01/28/20 11:58) Chest 1 View, Ap/Pa Only (01/28/20 11:58) Ekg Tracing (01/28/20 11:58) Comprehensive Metabolic Panel (01/28/20 11:58) Myoglobin Serum (01/28/20 11:58) Protime With Inr (01/28/20 11:58) Partial Thromboplastin Time (01/28/20 11:58) O2 (01/28/20 11:58) Monitor-Rhythm Ecg Trace Only (01/28/20 11:58) Ed Iv/Invasive Line Start (01/28/20 11:58) Troponin I (01/28/20 11:58) Aspirin Chewable Tablet (Baby Aspirin Ch (01/28/20 12:00) Troponin I (01/28/20 14:50) Medications Given in ED Current Medications Medications Dose Ordered Sig/Levi Route Start Time Stop Time Status Last Admin Dose Admin Aspirin 324 mg ONCE ONCE PO 01/28/20 12:00 01/28/20 12:01 DC 01/28/20 12:28 324 MG Vital Signs/I&O 01/28/20 01/28/20 12:05 16:45 Temp 37.0 Pulse 80 69 Resp 16 16 B/P (MAP) 144/90 (108) 130/81 Pulse Ox 100 98 O2 Delivery Room Air Room Air Blood Pressure Mean: 108 Progress Progress Note : Time: 16:22 Progress Note Chest pain had resolved prior to arrival and did not return. Patient's workup was unremarkable except for subtle EKG changes on our repeat of the EKG. Case was discussed with Dr. Eddy who suggested admission for observation. I discussed risks and benefits of admission versus discharge with the patient. She is aware that coronary artery disease or other serious pathology cannot be c ompletely ruled out in the emergency room and that is why admission was recommended. Patient elects to proceed with outpatient follow-up rather than admission and acknowledge the risks and benefits. She acknowledges that risks include worsening of her condition, loss of opportunity for real-time cardiac monitoring, and possibly . She commits to returning if chest pain worsens again. She is highly suspicious that her chest pain was caused by acid reflux. She did not believe her omeprazole is helping her and discontinued it. She is currently not taking any antacid therapy. Initial ECG Impression Date: Jan 28, 2020 Initial ECG Impression Time: 11:51 Initial ECG Rate: 78 Initial ECG Rhythm: Normal Sinus Initial ECG Intervals: Normal Comment There is sinus rhythm with no ST elevation. There is T-wave inversion in multiple leads including the inferior and lateral leads with perhaps a very subtle ST depression. Diagnostic Imaging Diagonstic Imaging: Xray Plain Films/CT/US/NM/MRI: chest Comments Chest x-ray viewed by me and report reviewed. See report below: NAME: LAURA MOJICA [facility] REC#: [id number] PT STATUS: REG ER : 1975 PHYSICIAN: ALEXANDREA LIM MD ADMIT DATE: 01/28/20/ER Draft Date of Exam:01/28/20 CHEST 1 VIEW, AP/PA ONLY INDICATION: Chest pain COMPARISON: 07/13/2019 FINDINGS: Single frontal view of the chest demonstrates normal heart size and pulmonary vascularity. The lungs are well aerated and clear. No large pleural effusion or pneumothorax is seen. The visualized osseous structures show no acute abnormalities. IMPRESSION: 1. No acute cardiopulmonary process. Dictated on workstation # [id number] Dict: 01/28/20 1236 Trans: 01/28/20 1238 [id number] Interpreted by: JOAN PAYTON MD Departure Impression Primary Impression: Chest pain Qualified Codes: R07.9 - Chest pain, unspecified Disposition: 01 HOME, SELF-CARE Condition: Improved Departure-Patient Inst. Decision time for Depature: 16:25 Referrals: STAR MARTINEZ MD (PCP/Family) Primary Care Physician Patient Instructions: Chest Pain (DC) Add. Discharge Instructions: Continue taking warfarin as previously prescribed. Follow-up with a Dr. Stiles and/or Dr. Smart on Friday morning. Return to the emergency room if you have a return of chest pain or develop other symptoms such as shortness of breath, fever, dizziness, etc. You can further prevent acid reflux by avoiding the following: Eating large meals, eating close to bedtime, caffeine, carbonation, chocolate, citrus fruits and juices, tomato products, alcohol, tobacco, mints, NSAID medications such as ibuprofen or naproxen, fatty or greasy foods, or anything else you know irritates your stomach. Elevating the head of your bed or sleeping on multiple pillows can also help reduce acid reflux. Resume taking an antacid medication such as Pepcid (famotidine) 20 mg twice daily. All discharge instructions reviewed with patient and/or family. Voiced understanding. Scripts Famotidine (Pepcid) 20 Mg Tablet 20 MG PO BID, #60 TAB Prov: ALEXANDREA LIM MD 01/28/20 Copy Copies To 1: JAG SMART MD Copies To 2: Jamison STILES MD, JOSHUA T MD Jan 28, 2020 12:22
--- OUTSIDE RECORDS SUMMARY | 2020-01-28 12:22 | XMS REPORT ---
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 Active 101115467 Problem History of venous thromboembolism V12.51 Active 506765680 Problem Cellulitis of unspecified part of limb L03.119 Active 031454839 Problem Gastroesophageal reflux disease without esophagitis K21.9 Active 827963712 Problem History of pulmonary embolism Z86.711 Active 126636068 Problem Pseudotumor cerebri G93.2 Active 50972056 Problem History of DVT (deep vein thrombosis) Z86.718 Active 280559880 ALLERGIES No Information ENCOUNTERS Encounter Location Date Diagnosis [place] [id number] FORMERLY NAMED [facility] [id number] [address] [place] [address] Apr, 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 (current) use of 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 Z79.01 [facility] [address] [facility] [id number] [address] [place] [address] Apr, 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.01 [facility] [address] [facility] [id number] [address] [place] [address] Apr, Cellulitis of unspecified pa rt of limb L03.119 ; Allergic contact dermatitis due to adhesives L23.1 and Chronic pain syndrome G89.4 [facility] [address] [facility] [id number] [address] [place] [address] Apr, [place] [address] [place] [id number] [address] [place] [address] Apr, building cleaner 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.01 ; Cellulitis of unspecified part of limb L03.119 ; Chronic pain syndrome G89.4 and Anxiety F41.9 [facility] [address] [place] [id number] [address] [place] [address] 16 Apr, 2015 [facility] [address] [place] [id number] [place] [address] Apr, [place] [address] [place] [id number] [place] [address] Mar, [place] [address] [address] Mar, [place] [address] [address] Mar, Sore throat J02.9 ; Gastroes ophageal reflux disease without esophagitis K21.9 ; Pseudotumor cerebri G93.2 ; Chronic pain syndrome G89.4 ; Choriocarcinoma C58 ; History of pulmonary embolism Z86.711 ; History of DVT (deep vein thrombosis) Z86.718 ; Anxiety F41.9 and Tachycardia R00.0 [place] [address] [address] Feb, Anxiety 300.00 and Chronic p ain 338.29 [place] [address] [place] [id number] [address] [place] [address] Feb, [place] [address] [place] [id number] [address] [place] [address] Feb, [place] [address] [address] Jan, building cleaner 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 therapy V58.61 and Dysuria 788.1 [place] [address] [place] [id number] [place] [address] Jan, Dysuria 788.1 [facility] [address] [place] [id number] [address] [place] [address] Jan, Anxiety 300.00 and Chronic p ain 338.29 [facility] [address] [place] [id number] [place] [address] Jan, [facility] [address] [address] Jan, [facility] [address] [address] Jan, [place] [address] [address] Dec, Weakness 780.79 [place] [address] [address] Dec, 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 therapy V58.61 [place] [address] [address] Dec, Palpitations 785.1 ; Tremor 781.0 ; Weakness 780.79 ; 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 therapy V58.61 and Yeast vaginitis 112.1 [place] [address] [address] [place] [id number] [address] [place] [address] Dec, [place] [address] [address] Dec, Cervicalgia 723.1 ; Tachycar yoseph 785.0 ; Pseudotumor cerebri 348.2 and History of venous thromboembolism V12.51 [place] [address] [address] Nov, [place] [address] [address] Nov, [place] [address] [address] Nov, Tachycardia 785.0 ; Pseudotu mor cerebri 348.2 ; Anxiety 300.00 and History of venous thromboembolism V12.51 [facility] [address] [id number] [address] [place] [address] Nov, [facility] [address] [id number] [address] [place] [address] 18 Nov, 2014 [facility] [address] [id number] [address] [place] [address] Nov, [facility] [address] [id number] [address] [place] [address] Nov, [facility] [address] [facility] [id number] [address] [place] [address] Nov, [facility] [address] [facility] [id number] [address] [place] [address] Nov, [facility] [address] [facility] [id number] [address] [place] [address] Nov, [facility] [address] [facility] [id number] [address] [place] [address] October, [facility] [address] [facility] [id number] [address] [place] [address] October, [facility] [address] [place] [id number] [address] [place] [address] October, Pain in thoracic spine 724.1 and Tachycardia 785.0 [facility] [address] [id number] [address] [place] [address] October, [facility] [address] [id number] [address] [place] [address] October, [facility] [address] [facility] [id number] [address] [place] [address] 14 Sep, 2014 [facility] [address] [facility] [id number] [address] [place] [address] Sep, [facility] [address] [id number] [facility] [place] [address] Aug, [facility] [address] [id number] [address] [place] [address], [place] [address] Aug, [facility] [address] [id number] [address] [place] [address], [place] [address] Aug, [facility] [address] [id number] [address] [place] [address], [place] [address] Aug, [facility] [address] [id number] [address] [place] [address], [place] [address] Aug, [facility] [address] [id number] [address] [place] [address], [place] [address] Aug, [facility] [address] [id number] [address] [place] [address], [place] [address] Aug, [facility] [address] [id number] [address] [place] [address], [place] [address] Aug, [facility] [address] [id number] [address] [place] [address], [place] [address] Aug, [facility] [address] [id number] [address] [place] [address], [place] [address] Aug, [facility] [address] [id number] [address] [place] [address], [place] [address] Aug, [facility] [address] [id number] [address] [place] [address], [place] [address] Aug, 2014 [facility] [address] [id number] [address] [place] [address], [place] [address] Jul, [facility] [address] [id number] [address] [place] [address], [place] [address] Jul, [facility] [address] [id number] [address] [place] [address], [place] [address] Jul, [facility] [address] [id number] [address] [place] [address], [place] [address] Jul, [facility] [address] [id number] [address] [place] [address], [place] [address] 23 Jul, 2014 [facility] [address] [id number] [address] [place] [address], [place] [address] 23 Jul, 2014 [facility] [address] [id number] [address] [place] [address], [place] [address] 23 Jul, 2014 [facility] [address] [id number] [address] [place] [address], [place] [address] 23 Jul, 2014 [facility] [address] [id number] [address] [place] [address], [place] [address] 20 Jul, 2014 [facility] [address] [id number] [address] [place] [address], [place] [address] 20 Jul, 2014 [facility] [address] [id number] [address] [place] [address], [place] [address] 19 Jul, 2014 [facility] [address] [id number] [address] [place] [address], [place] [address] 19 Jul, 2014 [facility] [address] [id number] [address] [place] [address], [place] [address] 17 Jul, 2014 [facility] [address] [id number] [address] [place] [address], [place] [address] 17 Jul, 2014 [facility] [address] [id number] [address] [place] [address], [place] [address] 16 Jul, 2014 [facility] [address] [id number] [address] [place] [address], [place] [address] 16 Jul, 2014 [facility] [address] [id number] [address] [place] [address], [place] [address] 16 Jul, 2014 [facility] [address] [id number] [address] [place] [address] 16 Jul, 2014 [facility] [address] [id number] [address] [place] [address] 13 Jul, 2014 [facility] [address] [id number] [address] [place] [address], [place] [address] Jul, [facility] [address] [id number] [address] [place] [address], [place] [address] Jul, [facility] [address] [id number] [address] [place] [address], [place] [address] Jul, 2014 [facility] [address] [id number] [address] [place] [address], [place] [address] Jul, 2014 [facility] [address] [id number] [address] [place] [address], [place] [address] Jul, [facility] [address] [id number] [address] [place] [address], [place] [address] Jul, [facility] [address] [id number] [address] [place] [address], [place] [address] Jul, [facility] [address] [id number] [address] [place] [address], [place] [address] Jul, [facility] [address] [id number] [address] [place] [address], [place] [address] Jul, [facility] [address] [id number] [address] [place] [address], [place] [address] Jul, [facility] [address] [id number] [address] [place] [address], [place] [address] Jul, [facility] [address] [id number] [address] [place] [address], [place] [address] Jun, [facility] [address] [id number] [address] [place] [address], [place] [address] Jun, [facility] [address] [id number] [address] [place] [address], [place] [address] Jun, [facility] [address] [id number] [address] [place] [address], [place] [address] Jun, [facility] [address] [id number] [address] [place] [address], [place] [address] Jun, [facility] [address] [id number] [address] [place] [address], [place] [address] Jun, [facility] [address] [id number] [address] [place] [address], [place] [address] Jun, [facility] [address] [id number] [address] [place] [address], [place] [address] Jun, [facility] [address] [id number] [address] [place] [address], [place] [address] Jun, [facility] [address] [id number] [address] [place] [address], [place] [address] Jun, [facility] [address] [id number] [address] [place] [address], [place] [address] Jun, [facility] [address] [id number] [address] [place] [address], [place] [address] Jun, [facility] [address] [id number] [address] [place] [address], [place] [address] Jun, [facility] [address] [id number] [address] [place] [address], [place] [address] Jun, [facility] [address] [id number] [address] [place] [address], [place] [address] Jun, [facility] [address] [id number] [address] [place] [address], [place] [address] Jun, [facility] [address] [id number] [address] [place] [address], [place] [address] Jun, [facility] [address] [id number] [address] [place] [address], [place] [address] Jun, [facility] [address] [id number] [address] [place] [address], [place] [address] Jun, [facility] [address] [id number] [address] [place] [address], [place] [address] Jun, [facility] [address] [id number] [address] [place] [address], [place] [address] May, [facility] [address] [id number] [address] [place] [address], [place] [address] May, [facility] [address] [id number] [address] [place] [address], [place] [address] May, [facility] [address] [id number] [address] [place] [address], [place] [address] May, [facility] [address] [id number] [address] [place] [address], [place] [address] May, [facility] [address] [id number] [address] [place] [address], [place] [address] May, [facility] [address] [id number] [address] [place] [address], [place] [address] May, [facility] [address] [id number] [address] [place] [address], [place] [address] May, [facility] [address] [id number] [address] [place] [address], [place] [address] May, [facility] [address] [id number] [address] [place] [address], [place] [address] May, [facility] [address] [id number] [address] [place] [address], [place] [address] May, [facility] [address] [id number] [address] [place] [address], [place] [address] 18 May, 2014 [facility] [address] [id number] [address] [place] [address], [place] [address] 18 May, 2014 [facility] [address] [id number] [address] [place] [address], [place] [address] 17 May, 2014 [facility] [address] [id number] [address] [place] [address], [place] [address] 16 May, 2014 [facility] [address] [id number] [address] [place] [address], [place] [address] 16 May, 2014 [facility] [address] [id number] [address] [place] [address], [place] [address] 15 May, 2014 [facility] [address] [id number] [address] [place] [address], [place] [address] 15 May, 2014 [facility] [address] [id number] [address] [place] [address], [place] [address] May, [facility] [address] [id number] [address] [place] [address], [place] [address] May, [facility] [address] [id number] [address] [place] [address], [place] [address] May, [facility] [address] [id number] [address] [place] [address], [place] [address] May, [facility] [address] [id number] [address] [place] [address], [place] [address] May, [facility] [address] [id number] [address] [place] [address], [place] [address] May, [facility] [address] [id number] [address] [place] [address], [place] [address] May, [facility] [address] [id number] [address] [place] [address], [place] [address] May, [facility] [address] [id number] [address] [place] [address], [place] [address] May, [facility] [address] [id number] [address] [place] [address], [place] [address] May, [facility] [address] [id number] [address] [place] [address], [place] [address] May, [facility] [address] [id number] [address] [place] [address], [place] [address] May, [facility] [address] [id number] [address] [place] [address], [place] [address] May, [facility] [address] [id number] [address] [place] [address], [place] [address] May, [facility] [address] [id number] [address] [place] [address], [place] [address] May, [facility] [address] [id number] [address] [place] [address], [place] [address] May, [facility] [address] [id number] [address] [place] [address], [place] [address] Apr, [facility] [address] [id number] [address] [place] [address], [place] [address] Apr, [facility] [address] [id number] [address] [place] [address], [place] [address] Apr, [facility] [address] [id number] [address] [place] [address], [place] [address] Apr, [facility] [address] [id number] [address] [place] [address], [place] [address] Apr, [facility] [address] [id number] [address] [place] [address], [place] [address] Apr, [facility] [address] [id number] [address] [place] [address], [place] [address] Apr, [facility] [address] [id number] [address] [place] [address], [place] [address] Apr, [facility] [address] [id number] [address] [place] [address], [place] [address] Apr, [facility] [address] [id number] [address] [place] [address], [place] [address] Apr, [facility] [address] [id number] [address] [place] [address], [place] [address] Mar, [facility] [address] [id number] [address] [place] [address], [place] [address] Mar, [facility] [address] [id number] [address] [place] [address] [address] Mar, [facility] [address] [id number] [address] [place] [address], [place] [address] 31 Mar, 2013 [facility] [address] [id number] [address] [place] [address], [place] [address] Mar, [facility] [address] [id number] [address] [place] [address], [place] [address] 30 Mar, 2014 [facility] [address] [id number] [address] [place] [address], [place] [address] Mar, [facility] [address] [id number] [address] [place] [address], [place] [address] Mar, [facility] [address] [id number] [address] [place] [address], [place] [address] Mar, [facility] [address] [id number] [address] [place] [address], [place] [address] Mar, [facility] [address] [id number] [address] [place] [id number] Mar, [facility] [address] [id number] [address] [place] [id number] Mar, [facility] [address] [id number] [address] [place] [address] Mar, [facility] [address] [id number] [address] [place] [id number] Mar, 2013 [facility] [address] [id number] [address] [place] [address] Mar, 2013 [facility] [address] [id number] [address] [place] [id number] Mar, [facility] [address] [id number] [address] [place] [address] Mar, [facility] [address] [id number] [address] [place] [address] Mar, 2013 [facility] [address] [id number] [address] [place] [address], [place] [address] 02 Mar, 2013 [facility] [address] [id number] [address] [place] [address], [place] [address] 02 Mar, 2013 [facility] [address] [id number] [address] [place] [address], [place] [address] 05 Sep, 2013 [facility] [address] [id number] [address] [place] [address], [place] [address] 05 Sep, 2013 [facility] [address] [id number] [address] [place] [address], [place] [address] 04 Sep, 2013 [facility] [address] [id number] [address] [place] [address], [place] [address] 04 Sep, 2013 [facility] [address] [id number] [address] [place] [address], [place] [address] 03 Feb, 2013 [facility] [address] [id number] [address] [place] [address], [place] [address] 03 Feb, 2013 [facility] [address] [id number] [address] [place] [address], [place] [address] 02 Feb, 2013 [facility] [address] [id number] [address] [place] [address], [place] [address] Feb, 2013 [facility] [address] [id number] [address] [place] [address], [place] [address] 02 Feb, 2013 [facility] [address] [id number] [address] [place] [address], [place] [address] Feb, 2013 [facility] [address] [id number] [address] [place] [address], [place] [address] Jan, [facility] [address] [id number] [address] [place] [address], [place] [address] Jan, [facility] [address] [id number] [address] [place] [address], [place] [address] Jan, [facility] [address] [id number] [address] [place] [address], [place] [address] Jan, [facility] [address] [id number] [facility] [place] [address] Jan, [facility] [address] [id number] [address] [place] [address], [place] [address] Jan, [facility] [address] [id number] [address] [place] [address], [place] [address] Jan, [facility] [address] [id number] [address] [place] [address], [place] [address] Jan, [facility] [address] [id number] [address] [place] [address], [place] [address] Jan, [facility] [address] [id number] [address] [place] [address], [place] [address] Jan, [facility] [address] [id number] [address] [place] [address], [place] [address] Jan, [facility] [address] [id number] [address] [place] [address], [place] [address] Jan, [facility] [address] [id number] [address] [place] [address], [place] [address] Dec, [facility] [address] [id number] [address] [place] [address], [place] [address] Dec, [facility] [address] [id number] [address] [place] [address], [place] [address] Dec, [facility] [address] [id number] [address] [place] [address], [place] [address] Dec, [facility] [address] [id number] [address] [place] [address], [place] [address] Dec, [facility] [address] [id number] [address] [place] [address], [place] [address] Dec, [facility] [address] [id number] [address] [place] [address], [place] [address] Dec, [facility] [address] [id number] [address] [place] [address], [place] [address] Dec, [facility] [address] [id number] [facility] [place] [address] Dec, [facility] [address] [id number] [address] [place] [address], [place] [address] Dec, [facility] [address] [id number] [address] [place] [address], [place] [address] Dec, [facility] [address] [id number] [address] [place] [address], [place] [address] Dec, [facility] [address] [id number] [address] [place] [address], [place] [address] Nov, [facility] [address] [id number] [address] [place] [address], [place] [address] Nov, [facility] [address] [id number] [address] [place] [address], [place] [address] Nov, [facility] [address] [id number] [address] [place] [address], [place] [address] Nov, [facility] [address] [id number] [address] [place] [address], [place] [address] Nov, [facility] [address] [id number] [address] [place] [address], [place] [address] Nov, [facility] [address] [id number] [address] [place] [address], [place] [address] Nov, [facility] [address] [id number] [address] [place] [address], [place] [address] Nov, [facility] [address] [id number] [address] [place] [address], [place] [address] Nov, [facility] [address] [id number] [address] [place] [address], [place] [address] Nov, [facility] [address] [id number] [address] [place] [address], [place] [address] Nov, [facility] [address] [id number] [facility] [place] [address] Nov, [facility] [address] [id number] [address] [place] [address], [place] [address] Nov, [facility] [address] [id number] [address] [place] [address], [place] [address] Nov, [facility] [address] [id number] [address] [place] [address], [place] [address] October, [facility] [address] [id number] [address] [place] [address], [place] [address] October, [facility] [address] [id number] [address] [place] [address], [place] [address] October, [facility] [address] [id number] [address] [place] [address], [place] [address] October, [facility] [address] [id number] [address] [place] [address], [place] [address] October, [facility] [address] [id number] [address] [place] [address], [place] [address] October, [facility] [address] [id number] [address] [place] [address], [place] [address] October, [facility] [address] [id number] [address] [place] [address], [place] [address] October, [facility] [address] [id number] [address] [place] [address], [place] [address] October, [facility] [address] [id number] [address] [place] [address], [place] [address] October, [facility] [address] [id number] [address] [place] [address], [place] [address] October, [facility] [address] [id number] [address] [place] [address], [place] [address] October, [facility] [address] [id number] [address] [place] [address], [place] [address] Sep, [facility] [address] [id number] [facility] [place] [address] Sep, [facility] [address] [id number] [address] [place] [address], [place] [address] Sep, [facility] [address] [id number] [facility] [place] [address] Sep, [facility] [address] [id number] [address] [place] [address], [place] [address] Sep, [facility] [address] [id number] [address] [place] [address], [place] [address] Sep, [facility] [address] [id number] [address] [place] [address], [place] [address] Aug, [facility] [address] [id number] [address] [place] [address], [place] [address] Aug, [facility] [address] [id number] [address] [place] [address], [place] [address] Aug, [facility] [address] [id number] [address] [place] [address], [place] [address] Aug, [facility] [address] [id number] [address] [place] [address], [place] [address] Aug, [facility] [address] [id number] [address] [place] [address], [place] [address] Aug, [facility] [address] [id number] [address] [place] [address], [place] [address] Jul, [facility] [address] [id number] [address] [place] [address], [place] [address] Jul, [facility] [address] [id number] [address] [place] [address], [place] [address] Jul, [facility] [address] [id number] [address] [place] [address], [place] [address] Jul, [facility] [address] [id number] [address] [place] [address], [place] [address] 13 Jul, 2013 [facility] [address] [id number] [address] [place] [address], [place] [address] Jul, [facility] [address] [id number] [address] [place] [address], [place] [address] Jul, [facility] [address] [id number] [address] [place] [address], [place] [address] Jul, [facility] [address] [id number] [address] [place] [address], [place] [address] Jul, [facility] [address] [id number] [address] [place] [address], [place] [address] Jul, [facility] [address] [id number] [address] [place] [address], [place] [address] Jun, [facility] [address] [id number] [address] [place] [address], [place] [address] Jun, [facility] [address] [id number] [address] [place] [address], [place] [address] Jun, [facility] [address] [id number] [address] [place] [address], [place] [address] Jun, [facility] [address] [id number] [address] [place] [address], [place] [address] Jun, [facility] [address] [id number] [address] [place] [address], [place] [address] Jun, [facility] [address] [id number] [address] [place] [address], [place] [address] Jun, [facility] [address] [id number] [address] [place] [address], [place] [address] Jun, [facility] [address] [id number] [address] [place] [address], [place] [address] May, [facility] [address] [id number] [address] [place] [address], [place] [address] May, [facility] [address] [id number] [address] [place] [address], [place] [address] May, [facility] [address] [id number] [address] [place] [address], [place] [address] May, [facility] [address] [id number] [address] [place] [address], [place] [address] May, [facility] [address] [id number] [address] [place] [address], [place] [address] May, [facility] [address] [id number] [address] [place] [address], [place] [address] May, [facility] [address] [id number] [address] [place] [address], [place] [address] May, [facility] [address] [id number] [address] [place] [address], [place] [address] Apr, [facility] [address] [id number] [address] [place] [address] Apr, [facility] [address] [id number] [address] [place] [address], [place] [address] Apr, [facility] [address] [id number] [address] [place] [address] Apr, [facility] [address] [id number] [address] [place] [address] Apr, [facility] [address] [id number] [address] [place] [address] Apr, [facility] [address] [id number] [address] [place] [address], [place] [address] Mar, [facility] [address] [id number] [address] [place] [address] Mar, [facility] [address] [id number] [address] [place] [address], [place] [address] Mar, [facility] [address] [id number] [address] [place] [address], [place] [address] Mar, [facility] [address] [id number] [address] [place] [address], [place] [address] Mar, [facility] [address] [id number] [address] [place] [address], [place] [address] Mar, [facility] [address] [id number] [address] [place] [address], [place] [address] Mar, [facility] [address] [id number] [address] [place] [address], [place] [address] 30 Feb, 2012 [facility] [address] [id number] [address] [place] [address], [place] [address] 30 Feb, 2013 [facility] [address] [id number] [address] [place] [address], [place] [address] 27 Feb, 2013 [facility] [address] [id number] [address] [place] [address], [place] [address] Feb, 2012 [facility] [address] [id number] [address] [place] [address], [place] [address] Feb, [facility] [address] [id number] [address] [place] [address], [place] [address] Feb, [facility] [address] [id number] [address] [place] [address], [place] [address] Jan, [facility] [address] [id number] [address] [place] [address], [place] [address] Jan, [facility] [address] [id number] [address] [place] [address], [place] [address] Jan, [facility] [address] [id number] [address] [place] [address], [place] [address] Jan, [facility] [address] [id number] [address] [place] [address], [place] [address] Jan, [facility] [address] [id number] [address] [place] [address], [place] [address] Jan, [facility] [address] [id number] [address] [place] [address], [place] [address] Jan, [facility] [address] [id number] [address] [place] [address], [place] [address] Jan, [facility] [address] [id number] [address] [place] [address], [place] [address] Jan, [facility] [address] [id number] [address] [place] [address], [place] [address] Dec, [facility] [address] [id number] [address] [place] [address], [place] [address] Dec, [facility] [address] [id number] [address] [place] [address], [place] [address] Dec, [facility] [address] [id number] [address] [place] [address], [place] [address] Dec, [facility] [address] [id number] [address] [place] [address], [place] [address] Dec, [facility] [address] [id number] [address] [place] [address], [place] [address] Dec, [facility] [address] [id number] [address] [place] [address], [place] [address] Dec, [facility] [address] [id number] [address] [place] [address], [place] [address] Dec, [facility] [address] [id number] [address] [place] [address], [place] [address] Dec, [facility] [address] [id number] [address] [place] [address], [place] [address] Dec, [facility] [address] [id number] [address] [place] [address], [place] [address] Dec, [facility] [address] [id number] [address] [place] [address], [place] [address] Dec, [facility] [address] [id number] [address] [place] [address], [place] [address] Dec, [facility] [address] [id number] [address] [place] [address], [place] [address] Nov, [facility] [address] [id number] [address] [place] [address], [place] [address] Nov, [facility] [address] [id number] [address] [place] [address], [place] [address] Nov, [facility] [address] [id number] [address] [place] [address], [place] [address] Nov, [facility] [address] [id number] [address] [place] [address], [place] [address] October, [facility] [address] [id number] [address] [place] [address], [place] [address] October, [facility] [address] [id number] [address] [place] [address], [place] [address] October, [facility] [address] [id number] [address] [place] [address], [place] [address] October, [facility] [address] [id number] [address] [place] [address], [place] [address] October, [facility] [address] [id number] [address] [place] [address], [place] [address] October, [facility] [address] [id number] [address] [place] [address], [place] [address] Sep, [facility] [address] [id number] [address] [place] [address], [place] [address] Sep, [facility] [address] [id number] [address] [place] [address], [place] [address] Sep, [facility] [address] [id number] [address] [place] [address], [place] [address] Sep, [facility] [address] [id number] [address] [place] [address], [place] [address] Sep, [facility] [address] [id number] [facility] [place] [address] 16 Sep, 2012 [facility] [address] [id number] [address] [place] [address], [place] [address] 12 Sep, 2012 [facility] [address] [id number] [address] [place] [address], [place] [address] Sep, [facility] [address] [id number] [address] [place] [address], [place] [address] Sep, [facility] [address] [id number] [address] [place] [address], [place] [address] Sep, [facility] [address] [id number] [address] [place] [address], [place] [address] Sep, [facility] [address] [id number] [address] [place] [address], [place] [address] Aug, [facility] [address] [id number] [address] [place] [address], [place] [address] 25 Aug, 2012 [facility] [address] [id number] [address] [place] [address], [place] [address] 25 Aug, 2012 [facility] [address] [id number] [address] [place] [address], [place] [address] 21 Aug, 2012 [facility] [address] [id number] [address] [place] [address], [place] [address] 19 Aug, 2012 [facility] [address] [id number] [address] [place] [address], [place] [address] 18 Aug, 2012 [facility] [address] [id number] [address] [place] [address], [place] [address] 17 Aug, 2012 [facility] [address] [id number] [address] [place] [address], [place] [address] 15 Aug, 2012 [facility] [address] [id number] [address] [place] [address], [place] [address] 15 Aug, 2012 [facility] [address] [id number] [address] [place] [address], [place] [address] Aug, [facility] [address] [id number] [address] [place] [address], [place] [address] Aug, [facility] [address] [id number] [address] [place] [address], [place] [address] Aug, [facility] [address] [id number] [address] [place] [address], [place] [address] Jul, [facility] [address] [id number] [address] [place] [address], [place] [address] Jul, [facility] [address] [id number] [address] [place] [address], [place] [address] Jul, [facility] [address] [id number] [address] [place] [address], [place] [address] Jul, [facility] [address] [id number] [address] [place] [address], [place] [address] Jul, [facility] [address] [id number] [address] [place] [address], [place] [address] Jul, [facility] [address] [id number] [address] [place] [address], [place] [address] Jul, [facility] [address] [id number] [address] [place] [address], [place] [address] Jul, [facility] [address] [id number] [address] [place] [address], [place] [address] Jul, [facility] [address] [id number] [address] [place] [address], [place] [address] Jul, [facility] [address] [id number] [address] [place] [address], [place] [address] May, [facility] [address] [id number] [place] [id number] May, [facility] [address] [id number] [address] [place] [address], [place] [address] May, [facility] [address] [id number] [address] [place] [address] May, [facility] [address] [facility] [address] [facility] [id number] [address] [place] [address] May, [facility] [address] [address] [facility] [id number] [address] [place] [address] Apr, [facility] [address] [id number] [place] [id number] Apr, [facility] [address] [facility] [id number] [address] [place] [address] Apr, [facility] [address] [facility] [id number] [address] [place] [address] Mar, [facility] [address] [id number] [place] [id number] Mar, [facility] [address] [facility] [id number] [address] [place] [id number] Mar, [facility] [address] [id number] [place] [id number] Feb, [facility] [address] [facility] [id number] [address] [place] [id number] Feb, [facility] [address] [facility] [id number] [address] [place] [id number] Feb, [facility] [address] [id number] [place] [id number] Feb, [facility] [address] [id number] [place] [id number] Feb, [facility] [address] [id number] [place] [id number] Jan, [facility] [address] [id number] [address] [place] [address], [place] [address] Jan, [facility] [address] [id number] [place] [id number] Jan, [facility] [address] [id number] [place] [id number] Jan, [facility] [address] [id number] [place] [id number] Jan, [facility] [address] [facility] [id number] [address] [place] [address], [place] [address] Jan, [facility] [address] [facility] [id number] [address] [place] [address], [place] [address] Jan, [facility] [address] [facility] [id number] [address] [place] [address], [place] [address] Aug, [facility] [address] [id number] [place] [id number] Aug, [facility] [address] [facility] [id number] [address] [place] [address], [place] [address] Jul, [facility] [address] [facility] [id number] [address] [place] [address], [place] [address] Jul, [facility] [address] [facility] [id number] [address] [place] [address], [place] [address] Jul, [facility] [address] [id number] [place] [id number] Jul, [facility] [address] [facility] [id number] [address] [place] [address], [place] [address] Jul, [facility] [address] [id number] [place] [id number] Jul, [facility] [address] [facility] [id number] [address] [place] [address], [place] [address] Jul, [facility] [address] [id number] [place] [id number] Jul, [facility] [address] [id number] [place] [id number] Jul, [facility] [address] [id number] [place] [id number] Jul, [facility] [address] [facility] [id number] [address] [place] [address], [place] [address] May, [facility] [address] [id number] [address] [place] [phone] May, [facility] [address] [id number] [address] [place] [id number] May, [facility] [address] [id number] [address] [place] [phone] Apr, [facility] [address] [id number] [address] [place] [id number] Jan, [facility] [address] [id number] [address] [place] [id number] Jan, [facility] [address] [id number] [address] [place] [id number] Dec, [facility] [address] [id number] [address] [place] [id number] Dec, [facility] [address] [id number] [address] [place] [phone] May, [facility] [address] [id number] [address] [place] [id number] Mar, [facility] [address] [id number] [address] [place] [id number] Mar, [facility] [address] [id number] [address] [place] [id number] Jan, IMMUNIZATIONS No Known Immunizations SOCIAL HISTORY [...]
--- OUTSIDE RECORDS SUMMARY | 2020-01-28 12:22 | XMS REPORT ---
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 Name Role Phone Migration, Doctor Unavailable Unavailable PROBLEMS Type Condition ICD9-CM Code [id number] Code Onset Dates Condition S tatus SNOMED Code Problem Chronic pain syndrome G89.4 Active 646784061 Problem Sore throat J02.9 Active 23873096 3 Problem Choriocarcinoma C58 Active 1881 25628 Problem senior care 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 Z79.01 Active 161892252 Problem History of venous thromboembolism V12.51 Active 603620273 Problem Cellulitis of unspecified part of limb L03.119 Active 413736463 Problem Gastroesophageal reflux disease without esophagitis K21.9 Active 022589672 Problem History of pulmonary embolism Z86.711 Active 599216219 Problem Pseudotumor cerebri G93.2 Active 96892076 Problem History of DVT (deep vein thrombosis) Z86.718 Active [id number] ALLERGIES No Information ENCOUNTERS Encounter Location Date Diagnosis [place] [address] [facility] [id number] [address] [place] [address] Apr, terminal carman (current) use of 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 Z79.01 [place] [id number] [facility] [id number] [address] [place] [address] Apr, terminal carman 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.01 [place] [address] [facility] [id number] [address] [place] [address] Apr, Cellulitis of unspecified pa rt of limb L03.119 ; Allergic contact dermatitis due to adhesives L23.1 and Chronic pain syndrome G89.4 [facility] [address] [id number] [address] [place] [address] Apr, [place] [address] [facility] [id number] [address] [place] [address] Apr, senior care 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.01 ; Cellulitis of unspecified part of limb L03.119 ; Chronic pain syndrome G89.4 and Anxiety F41.9 [place] [address] [place] [id number] [address] [place] [address] 16 Apr, 2015 [place] [address] [place] [id number] [place] [address] Apr, [place] [address] [address] Mar, [place] [address] [place] [id number] [place] [address] Mar, [place] [address] [address] Mar, Sore throat J02.9 ; Gastroes ophageal reflux disease without esophagitis K21.9 ; Pseudotumor cerebri G93.2 ; Chronic pain syndrome G89.4 ; Choriocarcinoma C58 ; History of pulmonary embolism Z86.711 ; History of DVT (deep vein thrombosis) Z86.718 ; Anxiety F41.9 and Tachycardia R00.0 [place] [address] [address] Feb, Anxiety 300.00 and Chronic p ain 338.29 [place] [address] [place] [id number] [address] [place] [address] Feb, [place] [id number] [place] [address] Feb, [place] [address] [place] [id number] [place] [address] Jan, senior care 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 therapy V58.61 and Dysuria 788.1 [place] [address] [place] [id number] [address] [place] [address] Jan, Dysuria 788.1 [place] [address] [place] [id number] [place] [address] Jan, Anxiety 300.00 and Chronic p ain 338.29 [place] [address] [address] Jan, [facility] [address] [address] Jan, [place] [address] [address] Jan, [place] [address] [address] Dec, Weakness 780.79 [place] [address] [address] Dec, terminal carman 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 therapy V58.61 [place] [address] [address] Dec, Palpitations 785.1 ; Tremor 781.0 ; Weakness 780.79 ; senior care 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 therapy V58.61 and Yeast vaginitis 112.1 [place] [address] [address] Dec, [place] [address] [address] Dec, Cervicalgia 723.1 ; Tachycar yoseph 785.0 ; Pseudotumor cerebri 348.2 and History of venous thromboembolism V12.51 [place] [address] [place] [id number] [address] [place] [address] Nov, [place] [address] [address] Nov, [place] [address] [address] Nov, Tachycardia 785.0 ; Pseudotu mor cerebri 348.2 ; Anxiety 300.00 and History of venous thromboembolism V12.51 [facility] [address] [id number] [address] [place] [address], [place] [address] Nov, [facility] [address] [id number] [address] [place] [address], [place] [address] 18 Nov, 2014 [facility] [address] [id number] [address] [place] [address], [place] [address] 16 Nov, 2014 [facility] [address] [id number] [address] [place] [address], [place] [address] Nov, [facility] [address] [id number] [address] [place] [address], [place] [address] Nov, [facility] [address] [id number] [address] [place] [address], [place] [address] Nov, [facility] [address] [id number] [address] [place] [address], [place] [address] Nov, [facility] [address] [id number] [address] [place] [address] October, [facility] [address] [id number] [address] [place] [address] October, [facility] [address] [id number] [address] [place] [address] October, Pain in thoracic spine 724.1 and Tachycardia 785.0 [facility] [address] [id number] [address] [place] [address] October, [facility] [address] [id number] [address] [place] [address] October, [facility] [address] [id number] [address] [place] [address] Sep, [facility] [address] [id number] [address] [place] [address] Sep, [facility] [address] [id number] [address] [place] [address] Aug, [facility] [address] [id number] [address] [place] [address], [place] [address] Aug, [facility] [address] [id number] [address] [place] [address], [place] [address] Aug, [facility] [address] [id number] [address] [place] [address], [place] [address] 17 Aug, 2014 [facility] [address] [id number] [address] [place] [address], [place] [address] Aug, [facility] [address] [id number] [address] [place] [address], [place] [address] 16 Aug, 2014 [facility] [address] [id number] [address] [place] [address], [place] [address] Aug, [facility] [address] [id number] [address] [place] [address], [place] [address] Aug, [facility] [address] [id number] [address] [place] [address], [place] [address] Aug, 2014 [facility] [address] [id number] [address] [place] [address], [place] [address] Aug, [facility] [address] [id number] [address] [place] [address], [place] [address] Aug, [facility] [address] [id number] [address] [place] [address], [place] [address] Aug, [facility] [address] [id number] [address] [place] [address], [place] [address] Jul, 2014 [facility] [address] [id number] [address] [place] [address], [place] [address] Jul, 2014 [facility] [address] [id number] [address] [place] [address], [place] [address] Jul, 2014 [facility] [address] [id number] [address] [place] [address], [place] [address] Jul, 2014 [facility] [address] [id number] [address] [place] [address], [place] [address] b, 2014 [facility] [address] [id number] [address] [place] [address], [place] [address] 23 Jul, 2014 [facility] [address] [id number] [address] [place] [address], [place] [address] 23 Jul, 2014 [facility] [address] [id number] [address] [place] [address], [place] [address] 23 Jul, 2014 [facility] [address] [id number] [address] [place] [address], [place] [address] 20 Jul, 2014 [facility] [address] [id number] [address] [place] [address], [place] [address] 20 Jul, 2014 [facility] [address] [id number] [address] [place] [address], [place] [address] 19 Jul, 2014 [facility] [address] [id number] [address] [place] [address], [place] [address] 19 Jul, 2014 [facility] [address] [id number] [address] [place] [address], [place] [address] 17 Jul, 2014 [facility] [address] [id number] [address] [place] [address], [place] [address] 17 Jul, 2014 [facility] [address] [id number] [address] [place] [address], [place] [address] 16 Jul, 2014 [facility] [address] [id number] [address] [place] [address], [place] [address] 16 Jul, 2014 [facility] [address] [id number] [address] [place] [address], [place] [address] 16 Jul, 2014 [facility] [address] [id number] [address] [place] [address], [place] [address] 16 Jul, 2014 [facility] [address] [id number] [address] [place] [address], [place] [address] 13 Jul, 2014 [facility] [address] [id number] [address] [place] [address], [place] [address] Jul, 2014 [facility] [address] [id number] [address] [place] [address], [place] [address] Jul, 2014 [facility] [address] [id number] [address] [place] [address], [place] [address] Jul, 2014 [facility] [address] [id number] [address] [place] [address], [place] [address] Jul, 2014 [facility] [address] [id number] [address] [place] [address], [place] [address] Jul, 2014 [facility] [address] [id number] [address] [place] [address], [place] [address] Jul, [facility] [address] [id number] [address] [place] [address], [place] [address] Jul, [facility] [address] [id number] [address] [place] [address], [place] [address] Jul, [facility] [address] [id number] [address] [place] [address], [place] [address] Jul, [facility] [address] [id number] [address] [place] [address], [place] [address] Jul, [facility] [address] [id number] [address] [place] [address], [place] [address] Jul, [facility] [address] [id number] [address] [place] [address], [place] [address] Jun, [facility] [address] [id number] [address] [place] [address], [place] [address] Jun, [facility] [address] [id number] [address] [place] [address], [place] [address] Jun, [facility] [address] [id number] [address] [place] [address], [place] [address] Jun, [facility] [address] [id number] [address] [place] [address], [place] [address] Jun, [facility] [address] [id number] [address] [place] [address], [place] [address] Jun, [facility] [address] [id number] [address] [place] [address], [place] [address] Jun, [facility] [address] [id number] [address] [place] [address], [place] [address] Jun, [facility] [address] [id number] [address] [place] [address], [place] [address] Jun, [facility] [address] [id number] [address] [place] [address], [place] [address] Jun, [facility] [address] [id number] [address] [place] [address], [place] [address] Jun, [facility] [address] [id number] [address] [place] [address], [place] [address] Jun, [facility] [address] [id number] [address] [place] [address], [place] [address] Jun, [facility] [address] [id number] [address] [place] [address], [place] [address] Jun, [facility] [address] [id number] [address] [place] [address], [place] [address] Jun, [facility] [address] [id number] [address] [place] [address], [place] [address] Jun, [facility] [address] [id number] [address] [place] [address], [place] [address] Jun, [facility] [address] [id number] [address] [place] [address], [place] [address] Jun, [facility] [address] [id number] [address] [place] [address], [place] [address] Jun, [facility] [address] [id number] [address] [place] [address], [place] [address] Jun, [facility] [address] [id number] [address] [place] [address], [place] [address] May, [facility] [address] [id number] [address] [place] [address], [place] [address] May, [facility] [address] [id number] [address] [place] [address], [place] [address] May, [facility] [address] [id number] [address] [place] [address], [place] [address] May, [facility] [address] [id number] [address] [place] [address], [place] [address] May, [facility] [address] [id number] [address] [place] [address], [place] [address] May, [facility] [address] [id number] [address] [place] [address], [place] [address] May, [facility] [address] [id number] [address] [place] [address], [place] [address] May, [facility] [address] [id number] [address] [place] [address], [place] [address] May, [facility] [address] [id number] [address] [place] [address], [place] [address] May, [facility] [address] [id number] [address] [place] [address], [place] [address] May, [facility] [address] [id number] [address] [place] [address], [place] [address] 18 May, 2014 [facility] [address] [id number] [address] [place] [address], [place] [address] 18 May, 2014 [facility] [address] [id number] [address] [place] [address], [place] [address] 17 May, 2014 [facility] [address] [id number] [address] [place] [address], [place] [address] 16 May, 2014 [facility] [address] [id number] [address] [place] [address], [place] [address] 16 May, 2014 [facility] [address] [id number] [address] [place] [address], [place] [address] 15 May, 2014 [facility] [address] [id number] [address] [place] [address], [place] [address] 15 May, 2014 [facility] [address] [id number] [address] [place] [address], [place] [address] May, [facility] [address] [id number] [address] [place] [address], [place] [address] May, [facility] [address] [id number] [address] [place] [address], [place] [address] May, [facility] [address] [id number] [address] [place] [address], [place] [address] May, [facility] [address] [id number] [address] [place] [address], [place] [address] May, [facility] [address] [id number] [address] [place] [address], [place] [address] May, [facility] [address] [id number] [address] [place] [address], [place] [address] May, [facility] [address] [id number] [address] [place] [address], [place] [address] May, [facility] [address] [id number] [address] [place] [address], [place] [address] May, [facility] [address] [id number] [address] [place] [address], [place] [address] May, [facility] [address] [id number] [address] [place] [address], [place] [address] May, [facility] [address] [id number] [address] [place] [address], [place] [address] May, [facility] [address] [id number] [address] [place] [address], [place] [address] May, [facility] [address] [id number] [address] [place] [address], [place] [address] May, [facility] [address] [id number] [address] [place] [address], [place] [address] May, [facility] [address] [id number] [address] [place] [address], [place] [address] May, [facility] [address] [id number] [address] [place] [address], [place] [address] Apr, [facility] [address] [id number] [address] [place] [address], [place] [address] Apr, [facility] [address] [id number] [address] [place] [address], [place] [address] Apr, [facility] [address] [id number] [address] [place] [address], [place] [address] Apr, [facility] [address] [id number] [address] [place] [address], [place] [address] Apr, [facility] [address] [id number] [address] [place] [address], [place] [address] Apr, [facility] [address] [id number] [address] [place] [address], [place] [address] Apr, [facility] [address] [id number] [address] [place] [address], [place] [address] Apr, [facility] [address] [id number] [address] [place] [address], [place] [address] Apr, [facility] [address] [id number] [address] [place] [address], [place] [address] Apr, [facility] [address] [id number] [address] [place] [address], [place] [address] Mar, [facility] [address] [id number] [address] [place] [address], [place] [address] Mar, [facility] [address] [id number] [address] [place] [address], [place] [address] Mar, [facility] [address] [id number] [address] [place] [address], [place] [address] 31 Mar, 2013 [facility] [address] [id number] [address] [place] [address], [place] [address] 30 Mar, 2013 [facility] [address] [id number] [address] [place] [address], [place] [address] 30 Mar, 2014 [facility] [address] [id number] [address] [place] [address], [place] [address] Mar, 2013 [facility] [address] [id number] [address] [place] [address], [place] [address] 17 Mar, 2013 [facility] [address] [id number] [address] [place] [address], [place] [address] 15 Mar, 2014 [facility] [address] [id number] [address] [place] [address] 15 Mar, 2014 [facility] [address] [id number] [address] [place] [address], [place] [id number] 15 Mar, 2014 [facility] [address] [id number] [address] [place] [id number] Mar, [facility] [address] [id number] [address] [place] [address], [place] [id number] Mar, [facility] [address] [id number] [address] [place] [id number] Mar, [facility] [address] [id number] [address] [place] [id number] Mar, [facility] [address] [id number] [address] [place] [id number] Mar, 2013 [facility] [address] [id number] [address] [place] [address], [place] [id number] Mar, [facility] [address] [id number] [address] [place] [id number] Mar, [facility] [address] [id number] [address] [place] [id number] Mar, 2013 [facility] [address] [id number] [address] [place] [address], [place] [id number] 02 Mar, 2013 [facility] [address] [id number] [address] [place] [address], [place] [id number] 05 Sep, 2013 [facility] [address] [id number] [address] [place] [address], [place] [id number] 05 Sep, 2013 [facility] [address] [id number] [address] [place] [address], [place] [id number] 04 Sep, 2013 [facility] [address] [id number] [address] [place] [address], [place] [id number] 04 Sep, 2013 [facility] [address] [id number] [address] [place] [address], [place] [id number] 03 Feb, 2013 [facility] [address] [id number] [address] [place] [address], [place] [address] Feb, 2013 [facility] [address] [id number] [address] [place] [address], [place] [id number] Feb, 2013 [facility] [address] [id number] [address] [place] [address], [place] [id number] Feb, 2013 [facility] [address] [id number] [address] [place] [address], [place] [id number] Feb, 2013 [facility] [address] [id number] [address] [place] [address], [place] [id number] Feb, 2013 [facility] [address] [id number] [address] [place] [address], [place] [id number] Jan, [facility] [address] [id number] [address] [place] [address], [place] [id number] Jan, [facility] [address] [id number] [address] [place] [address], [place] [id number] Jan, [facility] [address] [id number] [address] [place] [address], [place] [address] Jan, [facility] [address] [id number] [address] [place] [address], [place] [address] Jan, [facility] [address] [id number] [address] [place] [address], [place] [address] Jan, [facility] [address] [id number] [address] [place] [address], [place] [id number] Jan, [facility] [address] [id number] [address] [place] [address], [place] [address] Jan, [facility] [address] [id number] [address] [place] [address], [place] [id number] Jan, [facility] [address] [id number] [address] [place] [address], [place] [address] Jan, [facility] [address] [id number] [address] [place] [address], [place] [address] Jan, [facility] [address] [id number] [address] [place] [address], [place] [id number] Jan, [facility] [address] [id number] [address] [place] [address], [place] [address] Dec, [facility] [address] [id number] [address] [place] [address], [place] [address] Dec, [facility] [address] [id number] [address] [place] [address], [place] [address] Dec, [facility] [address] [id number] [address] [place] [address], [place] [id number] Dec, [facility] [address] [id number] [address] [place] [address], [place] [id number] Dec, [facility] [address] [id number] [address] [place] [address], [place] [id number] Dec, [facility] [address] [id number] [address] [place] [address], [place] [id number] Dec, [facility] [address] [id number] [address] [place] [address], [place] [address] Dec, [facility] [address] [id number] [address] [place] [address], [place] [id number] Dec, [facility] [address] [id number] [address] [place] [address], [place] [id number] Dec, [facility] [facility] [address] [id number] [address] [place] [address], [place] [address] Dec, [facility] [address] [id number] [address] [place] [address], [place] [address] Dec, [facility] [address] [id number] [address] [place] [address], [place] [address] Nov, [facility] [address] [id number] [address] [place] [address], [place] [address] Nov, [facility] [address] [id number] [address] [place] [address], [place] [address] Nov, [facility] [address] [id number] [address] [place] [address], [place] [address] Nov, [facility] [address] [id number] [address] [place] [address], [place] [address] Nov, [facility] [address] [id number] [address] [place] [address], [place] [address] Nov, [facility] [address] [id number] [address] [place] [address], [place] [address] Nov, [facility] [address] [id number] [address] [place] [address], [place] [address] Nov, [facility] [address] [id number] [address] [place] [address] Nov, [facility] [address] [id number] [address] [place] [address], [place] [address] Nov, [facility] [address] [id number] [address] [place] [address], [place] [address] Nov, [facility] [address] [id number] [address] [place] [address], [place] [address] Nov, [facility] [address] [id number] [address] [place] [address], [place] [address] Nov, [facility] [address] [id number] [address] [place] [address], [place] [address] Nov, [facility] [address] [id number] [address] [place] [address], [place] [address] October, [facility] [address] [id number] [address] [place] [address], [place] [address] October, [facility] [address] [id number] [address] [place] [address], [place] [address] October, [facility] [address] [id number] [address] [place] [address], [place] [address] October, [facility] [address] [id number] [address] [place] [address], [place] [address] October, [facility] [address] [id number] [address] [place] [address], [place] [address] October, [facility] [address] [id number] [address] [place] [address], [place] [address] October, [facility] [address] [id number] [address] [place] [address], [place] [address] October, [facility] [address] [id number] [address] [place] [address], [place] [address] October, [facility] [address] [id number] [address] [place] [address], [place] [address] October, [facility] [address] [id number] [address] [place] [address], [place] [address] October, [facility] [address] [id number] [address] [place] [address], [place] [address] October, [facility] [address] [id number] [address] [place] [address], [place] [address] Sep, [facility] [address] [id number] [address] [place] [address], [place] [address] Sep, [facility] [address] [id number] [facility] [place] [address] Sep, [facility] [address] [id number] [address] [place] [address], [place] [address] Sep, [facility] [address] [id number] [address] [place] [address], [place] [address] Sep, [facility] [address] [id number] [address] [place] [address], [place] [address] Sep, [facility] [address] [id number] [address] [place] [address], [place] [address] Aug, [facility] [address] [id number] [address] [place] [address], [place] [address] Aug, [facility] [address] [id number] [address] [place] [address], [place] [address] Aug, [facility] [address] [id number] [address] [place] [address], [place] [address] Aug, [facility] [address] [id number] [address] [place] [address], [place] [address] Aug, [facility] [address] [id number] [address] [place] [address], [place] [address] Aug, [facility] [address] [id number] [address] [place] [address], [place] [address] Jul, [facility] [address] [id number] [address] [place] [address], [place] [address] Jul, [facility] [address] [id number] [address] [place] [address], [place] [address] Jul, [facility] [address] [id number] [address] [place] [address], [place] [address] Jul, [facility] [address] [id number] [address] [place] [address], [place] [address] Jul, [facility] [address] [id number] [address] [place] [address], [place] [address] 13 Jul, 2013 [facility] [address] [id number] [address] [place] [address], [place] [address] Jul, [facility] [address] [id number] [address] [place] [address], [place] [address] Jul, [facility] [address] [id number] [address] [place] [address], [place] [address] Jul, [facility] [address] [id number] [address] [place] [address], [place] [address] Jul, [facility] [address] [id number] [address] [place] [address], [place] [address] Jun, [facility] [address] [id number] [address] [place] [address], [place] [address] Jun, [facility] [address] [id number] [address] [place] [address], [place] [address] Jun, [facility] [address] [id number] [address] [place] [address], [place] [address] Jun, [facility] [address] [id number] [address] [place] [address], [place] [address] Jun, [facility] [address] [id number] [address] [place] [address], [place] [address] Jun, [facility] [address] [id number] [address] [place] [address], [place] [address] Jun, [facility] [address] [id number] [address] [place] [address], [place] [address] Jun, [facility] [address] [id number] [address] [place] [address], [place] [address] May, [facility] [address] [id number] [address] [place] [address], [place] [address] May, [facility] [address] [id number] [address] [place] [address] [address] May, [facility] [address] [id number] [address] [place] [address], [place] [address] May, [facility] [address] [id number] [address] [place] [address], [place] [address] May, [facility] [address] [id number] [address] [place] [address], [place] [address] May, [facility] [address] [id number] [address] [place] [address], [place] [address] May, [facility] [address] [id number] [address] [place] [address], [place] [address] May, [facility] [address] [id number] [address] [place] [address], [place] [address] Apr, [facility] [address] [id number] [address] [place] [address], [place] [address] Apr, [facility] [address] [id number] [address] [place] [address] Apr, [facility] [address] [id number] [address] [place] [address] Apr, [facility] [address] [id number] [address] [place] [address] Apr, [facility] [address] [id number] [address] [place] [address] Apr, [facility] [address] [id number] [address] [place] [address] Mar, [facility] [address] [id number] [address] [place] [address] Mar, [facility] [address] [id number] [address] [place] [address] Mar, [facility] [address] [id number] [address] [place] [address] Mar, [facility] [address] [id number] [address] [place] [address], [place] [address] Mar, [facility] [address] [id number] [address] [place] [address], [place] [address] Mar, [facility] [address] [id number] [address] [place] [address], [place] [address] Mar, [facility] [address] [id number] [address] [place] [address], [place] [address] 30 Feb, 2013 [facility] [address] [id number] [address] [place] [address], [place] [address] 30 Feb, 2013 [facility] [address] [id number] [address] [place] [address], [place] [address] 27 Feb, 2013 [facility] [address] [id number] [address] [place] [address], [place] [address] Feb, [facility] [address] [id number] [address] [place] [address], [place] [address] Feb, [facility] [address] [id number] [address] [place] [address], [place] [address] Feb, [facility] [address] [id number] [address] [place] [address], [place] [address] Jan, [facility] [address] [id number] [address] [place] [address], [place] [address] Jan, [facility] [address] [id number] [address] [place] [address], [place] [address] Jan, [facility] [address] [id number] [address] [place] [address], [place] [address] Jan, [facility] [address] [id number] [address] [place] [address], [place] [address] Jan, [facility] [address] [id number] [address] [place] [address], [place] [address] Jan, [facility] [address] [id number] [address] [place] [address], [place] [address] Jan, [facility] [address] [id number] [address] [place] [address], [place] [address] Jan, [facility] [address] [id number] [address] [place] [address], [place] [address] Jan, [facility] [address] [id number] [address] [place] [address], [place] [address] Dec, [facility] [address] [id number] [address] [place] [address], [place] [address] Dec, [facility] [address] [id number] [address] [place] [address], [place] [address] Dec, [facility] [address] [id number] [address] [place] [address], [place] [address] Dec, [facility] [address] [id number] [address] [place] [address], [place] [address] Dec, [facility] [address] [id number] [address] [place] [address], [place] [address] Dec, [facility] [address] [id number] [address] [place] [address], [place] [address] Dec, [facility] [address] [id number] [address] [place] [address], [place] [address] Dec, [facility] [address] [id number] [address] [place] [address], [place] [address] Dec, [facility] [address] [id number] [address] [place] [address], [place] [address] Dec, [facility] [address] [id number] [address] [place] [address], [place] [address] Dec, [facility] [address] [id number] [address] [place] [address], [place] [address] Dec, [facility] [address] [id number] [address] [place] [address], [place] [address] Dec, [facility] [address] [id number] [address] [place] [address], [place] [address] Nov, [facility] [address] [id number] [address] [place] [address], [place] [address] Nov, [facility] [address] [id number] [address] [place] [address], [place] [address] Nov, [facility] [address] [id number] [address] [place] [address], [place] [address] Nov, [facility] [address] [id number] [address] [place] [address], [place] [address] October, [facility] [address] [id number] [address] [place] [address], [place] [address] October, [facility] [address] [id number] [address] [place] [address], [place] [address] October, [facility] [address] [id number] [address] [place] [address], [place] [address] October, [facility] [address] [id number] [address] [place] [address], [place] [address] October, [facility] [address] [id number] [address] [place] [address], [place] [address] October, [facility] [address] [id number] [address] [place] [address], [place] [address] 30 Sep, 2012 [facility] [address] [id number] [address] [place] [address], [place] [address] 29 Sep, 2012 [facility] [address] [id number] [address] [place] [address], [place] [address] 27 Sep, 2012 [facility] [address] [id number] [address] [place] [address], [place] [address] 23 Sep, 2012 [facility] [address] [id number] [address] [place] [address], [place] [address] Sep, [facility] [address] [id number] [address] [place] [address], [place] [address] 16 Sep, 2012 [facility] [address] [id number] [facility] [place] [address] 12 Sep, 2012 [facility] [address] [id number] [address] [place] [address], [place] [address] Sep, [facility] [address] [id number] [address] [place] [address], [place] [address] Sep, [facility] [address] [id number] [address] [place] [address], [place] [address] Sep, [facility] [address] [id number] [address] [place] [address], [place] [address] Sep, [facility] [address] [id number] [address] [place] [address], [place] [address] Aug, [facility] [address] [id number] [address] [place] [address], [place] [address] Aug, [facility] [address] [id number] [address] [place] [address], [place] [address] 25 Aug, 2012 [facility] [address] [id number] [address] [place] [address], [place] [address] 21 Aug, 2012 [facility] [address] [id number] [address] [place] [address], [place] [address] 19 Aug, 2012 [facility] [address] [id number] [address] [place] [address], [place] [address] 18 Aug, 2012 [facility] [address] [id number] [address] [place] [address], [place] [address] 17 Aug, 2012 [facility] [address] [id number] [address] [place] [address], [place] [address] 15 Aug, 2012 [facility] [address] [id number] [address] [place] [address], [place] [address] 15 Aug, 2012 [facility] [address] [id number] [address] [place] [address], [place] [address] 11 Aug, 2012 [facility] [address] [id number] [address] [place] [address], [place] [address] Aug, [facility] [address] [id number] [address] [place] [address], [place] [address] Aug, [facility] [address] [id number] [address] [place] [address], [place] [address] Jul, [facility] [address] [id number] [address] [place] [address], [place] [address] Jul, [facility] [address] [id number] [address] [place] [address], [place] [address] Jul, [facility] [address] [id number] [address] [place] [address], [place] [address] Jul, [facility] [address] [id number] [address] [place] [address], [place] [address] Jul, [facility] [address] [id number] [address] [place] [address], [place] [address] Jul, [facility] [address] [id number] [address] [place] [address], [place] [address] Jul, [facility] [address] [id number] [address] [place] [address], [place] [address] Jul, [facility] [address] [id number] [address] [place] [address], [place] [address] Jul, [facility] [address] [id number] [address] [place] [address] Jul, [facility] [address] [id number] [address] [place] [address] May, [facility] [address] [id number] [place] [id number] May, [facility] [address] [id number] [address] [place] [address] May, [facility] [address] [id number] [address] [place] [address], [place] [address] 14 May, 2012 [facility] [address] [id number] [address] [place] [address], [place] [address] May, [facility] [address] [id number] [address] [place] [address], [place] [address] Apr, [facility] [address] [id number] [place] [id number] Apr, [facility] [address] [facility] [id number] [address] [place] [address], [place] [address] Apr, [facility] [address] [facility] [id number] [address] [place] [address], [place] [address] Mar, [facility] [address] [id number] [place] [id number] Mar, [facility] [address] [facility] [id number] [address] [place] [address], [place] [id number] Mar, [facility] [address] [id number] [place] [id number] Feb, [facility] [address] [facility] [id number] [address] [place] [address], [place] [id number] Feb, [facility] [address] [facility] [id number] [address] [place] [address], [place] [id number] Feb, [facility] [address] [id number] [place] [id number] Feb, [facility] [address] [id number] [place] [id number] Feb, [facility] [address] [id number] [place] [id number] Jan, [facility] [address] [id number] [address] [place] [address], [place] [address] Jan, [facility] [address] [id number] [place] [id number] Jan, [facility] [address] [id number] [place] [id number] Jan, [facility] [address] [id number] [place] [id number] Jan, [facility] [address] [id number] [address] [place] [address], [place] [id number] Jan, [facility] [address] [facility] [id number] [address] [place] [address], [place] [id number] Jan, [facility] [address] [facility] [id number] [address] [place] [address], [place] [id number] Aug, [facility] [address] [facility] [id number] [place] [id number] Aug, [facility] [address] [facility] [id number] [address] [place] [address], [place] [id number] Jul, [facility] [address] [facility] [id number] [address] [place] [address], [place] [id number] Jul, [facility] [address] [facility] [id number] [address] [place] [address], [place] [id number] Jul, [facility] [address] [facility] [id number] [place] [id number] Jul, [facility] [address] [facility] [id number] [address] [place] [address], [place] [address] Jul, [facility] [address] [facility] [id number] [place] [id number] Jul, [facility] [address] [facility] [id number] [address] [place] [address], [place] [id number] Jul, [facility] [address] [id number] [place] [id number] Jul, [facility] [address] [id number] [place] [id number] Jul, [facility] [address] [id number] [place] [id number] Jul, [facility] [address] [facility] [id number] [address] [place] [address], [place] [id number] May, [facility] [address] [facility] [id number] [address] [place] [address], [place] [id number] May, [facility] [address] [id number] [address] [place] [id number] May, [facility] [address] [id number] [address] [place] [id number] Apr, [facility] [address] [id number] [address] [place] [id number] Jan, [facility] [address] [id number] [address] [place] [id number] Jan, [facility] [address] [id number] [address] [place] [id number] Dec, [facility] [address] [id number] [address] [place] [id number] Dec, [facility] [address] [id number] [address] [place] [id number] 16 May, 2009 [facility] [address] [id number] [address] [place] [id number] Mar, [facility] [address] [id number] [address] [place] [id number] Mar, [facility] [address] [id number] [address] [place] [id number] Jan, IMMUNIZATIONS No Known Immunizations SOCIAL HISTORY Never Assessed REASON FOR VISIT PLAN OF CARE VITAL SIGNS MEDICATIONS Unknown Medications RESULTS No Results PROCEDURES Procedure Date Ordered Result Body Site PROTHROMBIN TIME November 27, 2012 INSTRUCTIONS MEDICATIONS ADMINISTERED No Known Medications [...]
[2020-01-28 12:23] LABS: INR 2.5 (0.8-1.4); PROTHROMBIN TIME PATIENT 27.1 SEC (12.2-14.7)
--- OUTSIDE RECORDS SUMMARY | 2020-01-28 12:23 | XMS REPORT ---
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 Active 558990214 Problem History of venous thromboembolism V12.51 Active 475264609 Problem Cellulitis of unspecified part of limb L03.119 Active 611968046 Problem Gastroesophageal reflux disease without esophagitis K21.9 Active 631175914 Problem History of pulmonary embolism Z86.711 Active 613492555 Problem Pseudotumor cerebri G93.2 Active 65307157 Problem History of DVT (deep vein thrombosis) Z86.718 Active [id number] ALLERGIES No Information ENCOUNTERS Encounter Location Date Diagnosis [place] [address] [facility] [id number] [address] [place] [address] Apr, [facility] (current) use of 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 Z79.01 [facility] [address] [facility] [id number] [address] [place] [address] Apr, [facility] 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.01 [facility] [address] [facility] [id number] [address] [place] [address] Apr, Cellulitis of unspecified pa rt of limb L03.119 ; Allergic contact dermatitis due to adhesives L23.1 and Chronic pain syndrome G89.4 [facility] [address] [facility] [id number] [address] [place] [address] Apr, [place] [address] [address] [place] [id number] [address] [place] [address] Apr, termination clerk 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.01 ; Cellulitis of unspecified part of limb L03.119 ; Chronic pain syndrome G89.4 and Anxiety F41.9 [facility] [address] [place] [id number] [address] [place] [address] 16 Apr, 2015 [facility] [address] [place] [id number] [place] [address] Apr, [place] [address] [place] [id number] [place] [address] Mar, [place] [address] [address] Mar, [place] [address] [address] Mar, Sore throat J02.9 ; Gastroes ophageal reflux disease without esophagitis K21.9 ; Pseudotumor cerebri G93.2 ; Chronic pain syndrome G89.4 ; Choriocarcinoma C58 ; History of pulmonary embolism Z86.711 ; History of DVT (deep vein thrombosis) Z86.718 ; Anxiety F41.9 and Tachycardia R00.0 [place] [address] [address] Feb, Anxiety 300.00 and Chronic p ain 338.29 [place] [address] [address] [place] [id number] [address] [place] [address] Feb, [place] [address] [place] [id number] [address] [place] [address] Feb, [place] [address] [address] Jan, termination clerk 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 therapy V58.61 and Dysuria 788.1 [place] [address] [address] [place] [id number] [place] [address] Jan, Dysuria 788.1 [facility] [address] [place] [id number] [address] [place] [address] Jan, Anxiety 300.00 and Chronic p ain 338.29 [facility] [address] [place] [id number] [place] [address] Jan, [facility] [address] [address] Jan, [facility] [address] [address] Jan, [place] [address] [address] Dec, Weakness 780.79 [place] [address] [address] Dec, [facility] 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 therapy V58.61 [place] [address] [address] Dec, Palpitations 785.1 ; Tremor 781.0 ; Weakness 780.79 ; [facility] 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 therapy V58.61 and Yeast vaginitis 112.1 [place] [address] [address] [place] [id number] [address] [place] [address] Dec, [place] [address] [address] Dec, Cervicalgia 723.1 ; Tachycar yoseph 785.0 ; Pseudotumor cerebri 348.2 and History of venous thromboembolism V12.51 [place] [address] [address] Nov, [place] [address] [address] Nov, [place] [address] [address] Nov, Tachycardia 785.0 ; Pseudotu mor cerebri 348.2 ; Anxiety 300.00 and History of venous thromboembolism V12.51 [facility] [address] [id number] [address] [place] [address] Nov, [facility] [address] [id number] [address] [place] [address] 18 Nov, 2014 [facility] [address] [id number] [address] [place] [address] Nov, [facility] [address] [id number] [address] [place] [address] Nov, [facility] [address] [facility] [id number] [address] [place] [address] Nov, [facility] [address] [facility] [id number] [address] [place] [address] Nov, [facility] [address] [facility] [id number] [address] [place] [address] Nov, [facility] [address] [facility] [id number] [address] [place] [address] October, [facility] [address] [facility] [id number] [address] [place] [address] October, [facility] [address] [place] [id number] [address] [place] [address] October, Pain in thoracic spine 724.1 and Tachycardia 785.0 [facility] [address] [id number] [address] [place] [address] October, [facility] [address] [id number] [address] [place] [address] October, [facility] [address] [facility] [id number] [address] [place] [address] 14 Sep, 2014 [facility] [address] [facility] [id number] [address] [place] [address] Sep, [facility] [address] [id number] [facility] [place] [address] Aug, [facility] [address] [id number] [address] [place] [address], [place] [address] Aug, [facility] [address] [id number] [address] [place] [address], [place] [address] Aug, [facility] [address] [id number] [address] [place] [address], [place] [address] Aug, [facility] [address] [id number] [address] [place] [address], [place] [address] Aug, [facility] [address] [id number] [address] [place] [address], [place] [address] Aug, [facility] [address] [id number] [address] [place] [address], [place] [address] Aug, [facility] [address] [id number] [address] [place] [address], [place] [address] Aug, [facility] [address] [id number] [address] [place] [address], [place] [address] Aug, [facility] [address] [id number] [address] [place] [address], [place] [address] Aug, [facility] [address] [id number] [address] [place] [address], [place] [address] Aug, [facility] [address] [id number] [address] [place] [address], [place] [address] Aug, 2014 [facility] [address] [id number] [address] [place] [address], [place] [address] Jul, [facility] [address] [id number] [address] [place] [address], [place] [address] Jul, [facility] [address] [id number] [address] [place] [address], [place] [address] Jul, [facility] [address] [id number] [address] [place] [address], [place] [address] Jul, [facility] [address] [id number] [address] [place] [address], [place] [address] 23 Jul, 2014 [facility] [address] [id number] [address] [place] [address], [place] [address] 23 Jul, 2014 [facility] [address] [id number] [address] [place] [address], [place] [address] 23 Jul, 2014 [facility] [address] [id number] [address] [place] [address], [place] [address] 23 Jul, 2014 [facility] [address] [id number] [address] [place] [address], [place] [address] 20 Jul, 2014 [facility] [address] [id number] [address] [place] [address], [place] [address] 20 Jul, 2014 [facility] [address] [id number] [address] [place] [address], [place] [address] 19 Jul, 2014 [facility] [address] [id number] [address] [place] [address], [place] [address] 19 Jul, 2014 [facility] [address] [id number] [address] [place] [address], [place] [address] 17 Jul, 2014 [facility] [address] [id number] [address] [place] [address], [place] [address] 17 Jul, 2014 [facility] [address] [id number] [address] [place] [address], [place] [address] 16 Jul, 2014 [facility] [address] [id number] [address] [place] [address], [place] [address] 16 Jul, 2014 [facility] [address] [id number] [address] [place] [address], [place] [address] 16 Jul, 2014 [facility] [address] [id number] [address] [place] [address] 16 Jul, 2014 [facility] [address] [id number] [address] [place] [address] 13 Jul, 2014 [facility] [address] [id number] [address] [place] [address], [place] [address] Jul, [facility] [address] [id number] [address] [place] [address], [place] [address] Jul, [facility] [address] [id number] [address] [place] [address], [place] [address] Jul, 2014 [facility] [address] [id number] [address] [place] [address], [place] [address] Jul, 2014 [facility] [address] [id number] [address] [place] [address], [place] [address] Jul, [facility] [address] [id number] [address] [place] [address], [place] [address] Jul, [facility] [address] [id number] [address] [place] [address], [place] [address] Jul, [facility] [address] [id number] [address] [place] [address], [place] [address] Jul, [facility] [address] [id number] [address] [place] [address], [place] [address] Jul, [facility] [address] [id number] [address] [place] [address], [place] [address] Jul, [facility] [address] [id number] [address] [place] [address], [place] [address] Jul, [facility] [address] [id number] [address] [place] [address], [place] [address] Jun, [facility] [address] [id number] [address] [place] [address], [place] [address] Jun, [facility] [address] [id number] [address] [place] [address], [place] [address] Jun, [facility] [address] [id number] [address] [place] [address], [place] [address] Jun, [facility] [address] [id number] [address] [place] [address], [place] [address] Jun, [facility] [address] [id number] [address] [place] [address], [place] [address] Jun, [facility] [address] [id number] [address] [place] [address], [place] [address] Jun, [facility] [address] [id number] [address] [place] [address], [place] [address] Jun, [facility] [address] [id number] [address] [place] [address], [place] [address] Jun, [facility] [address] [id number] [address] [place] [address], [place] [address] Jun, [facility] [address] [id number] [address] [place] [address], [place] [address] Jun, [facility] [address] [id number] [address] [place] [address], [place] [address] Jun, [facility] [address] [id number] [address] [place] [address], [place] [address] Jun, [facility] [address] [id number] [address] [place] [address], [place] [address] Jun, [facility] [address] [id number] [address] [place] [address], [place] [address] Jun, [facility] [address] [id number] [address] [place] [address], [place] [address] Jun, [facility] [address] [id number] [address] [place] [address], [place] [address] Jun, [facility] [address] [id number] [address] [place] [address], [place] [address] Jun, [facility] [address] [id number] [address] [place] [address], [place] [address] Jun, [facility] [address] [id number] [address] [place] [address], [place] [address] Jun, [facility] [address] [id number] [address] [place] [address], [place] [address] May, [facility] [address] [id number] [address] [place] [address], [place] [address] May, [facility] [address] [id number] [address] [place] [address], [place] [address] May, [facility] [address] [id number] [address] [place] [address], [place] [address] May, [facility] [address] [id number] [address] [place] [address], [place] [address] May, [facility] [address] [id number] [address] [place] [address], [place] [address] May, [facility] [address] [id number] [address] [place] [address], [place] [address] May, [facility] [address] [id number] [address] [place] [address], [place] [address] May, [facility] [address] [id number] [address] [place] [address], [place] [address] May, [facility] [address] [id number] [address] [place] [address], [place] [address] May, [facility] [address] [id number] [address] [place] [address], [place] [address] May, [facility] [address] [id number] [address] [place] [address], [place] [address] 18 May, 2014 [facility] [address] [id number] [address] [place] [address], [place] [address] 18 May, 2014 [facility] [address] [id number] [address] [place] [address], [place] [address] 17 May, 2014 [facility] [address] [id number] [address] [place] [address], [place] [address] 16 May, 2014 [facility] [address] [id number] [address] [place] [address], [place] [address] 16 May, 2014 [facility] [address] [id number] [address] [place] [address], [place] [address] 15 May, 2014 [facility] [address] [id number] [address] [place] [address], [place] [address] 15 May, 2014 [facility] [address] [id number] [address] [place] [address], [place] [address] May, [facility] [address] [id number] [address] [place] [address], [place] [address] May, [facility] [address] [id number] [address] [place] [address], [place] [address] May, [facility] [address] [id number] [address] [place] [address], [place] [address] May, [facility] [address] [id number] [address] [place] [address], [place] [address] May, [facility] [address] [id number] [address] [place] [address], [place] [address] May, [facility] [address] [id number] [address] [place] [address], [place] [address] May, [facility] [address] [id number] [address] [place] [address], [place] [address] May, [facility] [address] [id number] [address] [place] [address], [place] [address] May, [facility] [address] [id number] [address] [place] [address], [place] [address] May, [facility] [address] [id number] [address] [place] [address], [place] [address] May, [facility] [address] [id number] [address] [place] [address], [place] [address] May, [facility] [address] [id number] [address] [place] [address], [place] [address] May, [facility] [address] [id number] [address] [place] [address], [place] [address] May, [facility] [address] [id number] [address] [place] [address], [place] [address] May, [facility] [address] [id number] [address] [place] [address], [place] [address] May, [facility] [address] [id number] [address] [place] [address], [place] [address] Apr, [facility] [address] [id number] [address] [place] [address], [place] [address] Apr, [facility] [address] [id number] [address] [place] [address], [place] [address] Apr, [facility] [address] [id number] [address] [place] [address], [place] [address] Apr, [facility] [address] [id number] [address] [place] [address], [place] [address] Apr, [facility] [address] [id number] [address] [place] [address], [place] [address] Apr, [facility] [address] [id number] [address] [place] [address], [place] [address] Apr, [facility] [address] [id number] [address] [place] [address], [place] [address] Apr, [facility] [address] [id number] [address] [place] [address], [place] [address] Apr, [facility] [address] [id number] [address] [place] [address], [place] [address] Apr, [facility] [address] [id number] [address] [place] [address], [place] [address] Mar, [facility] [address] [id number] [address] [place] [address], [place] [address] Mar, [facility] [address] [id number] [address] [place] [address] [address] Mar, [facility] [address] [id number] [address] [place] [address], [place] [address] 31 Mar, 2013 [facility] [address] [id number] [address] [place] [address], [place] [address] Mar, [facility] [address] [id number] [address] [place] [address], [place] [address] 30 Mar, 2014 [facility] [address] [id number] [address] [place] [address], [place] [address] Mar, [facility] [address] [id number] [address] [place] [address], [place] [address] Mar, [facility] [address] [id number] [address] [place] [address], [place] [address] Mar, [facility] [address] [id number] [address] [place] [address], [place] [address] Mar, [facility] [address] [id number] [address] [place] [address] Mar, [facility] [address] [id number] [address] [place] [address] Mar, [facility] [address] [id number] [address] [place] [address] Mar, [facility] [address] [id number] [address] [place] [address] Mar, 2013 [facility] [address] [id number] [address] [place] [address] Mar, 2013 [facility] [address] [id number] [address] [place] [address] Mar, [facility] [address] [id number] [address] [place] [address] Mar, [facility] [address] [id number] [address] [place] [address] Mar, 2013 [facility] [address] [id number] [address] [place] [address], [place] [address] 02 Mar, 2013 [facility] [address] [id number] [address] [place] [address], [place] [address] 02 Mar, 2013 [facility] [address] [id number] [address] [place] [address], [place] [address] 05 Sep, 2013 [facility] [address] [id number] [address] [place] [address], [place] [address] 05 Sep, 2013 [facility] [address] [id number] [address] [place] [address], [place] [address] 04 Sep, 2013 [facility] [address] [id number] [address] [place] [address], [place] [address] 04 Sep, 2013 [facility] [address] [id number] [address] [place] [address], [place] [address] 03 Feb, 2013 [facility] [address] [id number] [address] [place] [address], [place] [address] 03 Feb, 2013 [facility] [address] [id number] [address] [place] [address], [place] [address] 02 Feb, 2013 [facility] [address] [id number] [address] [place] [address], [place] [address] Feb, 2013 [facility] [address] [id number] [address] [place] [address], [place] [address] 02 Feb, 2013 [facility] [address] [id number] [address] [place] [address], [place] [address] Feb, 2013 [facility] [address] [id number] [address] [place] [address], [place] [address] Jan, [facility] [address] [id number] [address] [place] [address], [place] [address] Jan, [facility] [address] [id number] [address] [place] [address], [place] [address] Jan, [facility] [address] [id number] [address] [place] [address], [place] [address] Jan, [facility] [address] [id number] [address] [place] [address] Jan, [facility] [address] [id number] [address] [place] [address], [place] [address] Jan, [facility] [address] [id number] [address] [place] [address], [place] [address] Jan, [facility] [address] [id number] [address] [place] [address], [place] [address] Jan, [facility] [address] [id number] [address] [place] [address], [place] [address] Jan, [facility] [address] [id number] [address] [place] [address], [place] [address] Jan, [facility] [address] [id number] [address] [place] [address], [place] [address] Jan, [facility] [address] [id number] [address] [place] [address], [place] [address] Jan, [facility] [address] [id number] [address] [place] [address], [place] [address] Dec, [facility] [address] [id number] [address] [place] [address], [place] [address] Dec, [facility] [address] [id number] [address] [place] [address], [place] [address] Dec, [facility] [address] [address] [id number] [address] [place] [address], [place] [address] Dec, [facility] [address] [id number] [address] [place] [address], [place] [address] Dec, [facility] [address] [id number] [address] [place] [address], [place] [address] Dec, [facility] [address] [id number] [address] [place] [address], [place] [address] Dec, [facility] [address] [id number] [address] [place] [address], [place] [address] Dec, [facility] [address] [id number] [facility] [place] [address] Dec, [facility] [address] [id number] [address] [place] [address], [place] [address] Dec, [facility] [address] [id number] [address] [place] [address], [place] [address] Dec, [facility] [address] [id number] [address] [place] [address], [place] [address] Dec, [facility] [address] [id number] [address] [place] [address], [place] [address] Nov, [facility] [address] [id number] [address] [place] [address], [place] [address] Nov, [facility] [address] [id number] [address] [place] [address], [place] [address] Nov, [facility] [address] [id number] [address] [place] [address], [place] [address] Nov, [facility] [address] [id number] [address] [place] [address], [place] [address] Nov, [facility] [address] [id number] [address] [place] [address], [place] [address] Nov, [facility] [address] [id number] [address] [place] [address], [place] [address] Nov, [facility] [address] [id number] [address] [place] [address], [place] [address] Nov, [facility] [address] [id number] [address] [place] [address], [place] [address] Nov, [facility] [address] [id number] [address] [place] [address], [place] [address] Nov, [facility] [address] [id number] [address] [place] [address], [place] [address] Nov, [facility] [address] [id number] [facility] [place] [address] Nov, [facility] [address] [id number] [address] [place] [address], [place] [address] Nov, [facility] [address] [id number] [address] [place] [address], [place] [address] Nov, [facility] [address] [id number] [address] [place] [address], [place] [address] October, [facility] [address] [id number] [address] [place] [address], [place] [address] October, [facility] [address] [id number] [address] [place] [address], [place] [address] October, [facility] [address] [id number] [address] [place] [address], [place] [address] October, [facility] [address] [id number] [address] [place] [address], [place] [address] October, [facility] [address] [id number] [address] [place] [address], [place] [address] October, [facility] [address] [id number] [address] [place] [address], [place] [address] October, [facility] [address] [id number] [address] [place] [address], [place] [address] October, [facility] [address] [id number] [address] [place] [address], [place] [address] October, [facility] [address] [id number] [address] [place] [address], [place] [address] October, [facility] [address] [id number] [address] [place] [address], [place] [address] October, [facility] [address] [id number] [address] [place] [address], [place] [address] October, [facility] [address] [id number] [address] [place] [address], [place] [address] Sep, [facility] [address] [id number] [facility] [place] [address] Sep, [facility] [address] [id number] [address] [place] [address], [place] [address] Sep, [facility] [address] [id number] [facility] [place] [address] Sep, [facility] [address] [id number] [address] [place] [address], [place] [address] Sep, [facility] [address] [id number] [address] [place] [address], [place] [address] Sep, [facility] [address] [id number] [address] [place] [address], [place] [address] Aug, [facility] [address] [id number] [address] [place] [address], [place] [address] Aug, [facility] [address] [id number] [address] [place] [address], [place] [address] Aug, [facility] [address] [id number] [address] [place] [address], [place] [address] Aug, [facility] [address] [id number] [address] [place] [address], [place] [address] Aug, [facility] [address] [id number] [address] [place] [address], [place] [address] Aug, [facility] [address] [id number] [address] [place] [address], [place] [address] Jul, [facility] [address] [id number] [address] [place] [address], [place] [address] Jul, [facility] [address] [id number] [address] [place] [address], [place] [address] Jul, [facility] [address] [id number] [address] [place] [address], [place] [address] Jul, [facility] [address] [id number] [address] [place] [address], [place] [address] 13 Jul, 2013 [facility] [address] [id number] [address] [place] [address], [place] [address] Jul, [facility] [address] [id number] [address] [place] [address], [place] [address] Jul, [facility] [address] [id number] [address] [place] [address], [place] [address] Jul, [facility] [address] [id number] [address] [place] [address], [place] [address] Jul, [facility] [address] [id number] [address] [place] [address], [place] [address] Jul, [facility] [address] [id number] [address] [place] [address], [place] [address] Jun, [facility] [address] [id number] [address] [place] [address], [place] [address] Jun, [facility] [address] [id number] [address] [place] [address], [place] [address] Jun, [facility] [address] [id number] [address] [place] [address], [place] [address] Jun, [facility] [address] [id number] [address] [place] [address], [place] [address] Jun, [facility] [address] [id number] [address] [place] [address], [place] [address] Jun, [facility] [address] [id number] [address] [place] [address], [place] [address] Jun, [facility] [address] [id number] [address] [place] [address], [place] [address] Jun, [facility] [address] [id number] [address] [place] [address], [place] [address] May, [facility] [address] [id number] [address] [place] [address], [place] [address] May, [facility] [address] [id number] [address] [place] [address], [place] [address] May, [facility] [address] [id number] [address] [place] [address], [place] [address] May, [facility] [address] [id number] [address] [place] [address], [place] [address] May, [facility] [address] [id number] [address] [place] [address], [place] [address] May, [facility] [address] [id number] [address] [place] [address], [place] [address] May, [facility] [address] [id number] [address] [place] [address], [place] [address] May, [facility] [address] [id number] [address] [place] [address], [place] [address] Apr, [facility] [address] [id number] [address] [place] [address] Apr, [facility] [address] [id number] [address] [place] [address], [place] [address] Apr, [facility] [address] [id number] [address] [place] [address] Apr, [facility] [address] [id number] [address] [place] [address] Apr, [facility] [address] [id number] [address] [place] [address] Apr, [facility] [address] [id number] [address] [place] [address], [place] [address] Mar, [facility] [address] [id number] [address] [place] [address] Mar, [facility] [address] [id number] [address] [place] [address], [place] [address] Mar, [facility] [address] [id number] [address] [place] [address], [place] [address] Mar, [facility] [address] [id number] [address] [place] [address], [place] [address] Mar, [facility] [address] [id number] [address] [place] [address], [place] [address] Mar, [facility] [address] [id number] [address] [place] [address], [place] [address] Mar, [facility] [address] [id number] [address] [place] [address], [place] [address] 30 Feb, 2012 [facility] [address] [id number] [address] [place] [address], [place] [address] 30 Feb, 2013 [facility] [address] [id number] [address] [place] [address], [place] [address] 27 Feb, 2013 [facility] [address] [id number] [address] [place] [address], [place] [address] Feb, 2012 [facility] [address] [id number] [address] [place] [address], [place] [address] Feb, [facility] [address] [id number] [address] [place] [address], [place] [address] Feb, [facility] [address] [id number] [address] [place] [address], [place] [address] Jan, [facility] [address] [id number] [address] [place] [address], [place] [address] Jan, [facility] [address] [id number] [address] [place] [address], [place] [address] Jan, [facility] [address] [id number] [address] [place] [address], [place] [address] Jan, [facility] [address] [id number] [address] [place] [address], [place] [address] Jan, [facility] [address] [id number] [address] [place] [address], [place] [address] Jan, [facility] [address] [id number] [address] [place] [address], [place] [address] Jan, [facility] [address] [id number] [address] [place] [address], [place] [address] Jan, [facility] [address] [id number] [address] [place] [address], [place] [address] Jan, [facility] [address] [id number] [address] [place] [address], [place] [address] Dec, [facility] [address] [id number] [address] [place] [address], [place] [address] Dec, [facility] [address] [id number] [address] [place] [address], [place] [address] Dec, [facility] [address] [id number] [address] [place] [address], [place] [address] Dec, [facility] [address] [id number] [address] [place] [address], [place] [address] Dec, [facility] [address] [id number] [address] [place] [address], [place] [address] Dec, [facility] [address] [id number] [address] [place] [address], [place] [address] Dec, [facility] [address] [id number] [address] [place] [address], [place] [address] Dec, [facility] [address] [id number] [address] [place] [address], [place] [address] Dec, [facility] [address] [id number] [address] [place] [address], [place] [address] Dec, [facility] [address] [id number] [address] [place] [address], [place] [address] Dec, [facility] [address] [id number] [address] [place] [address], [place] [address] Dec, [facility] [address] [id number] [address] [place] [address], [place] [address] Dec, [facility] [address] [id number] [address] [place] [address], [place] [address] Nov, [facility] [address] [id number] [address] [place] [address], [place] [address] Nov, [facility] [address] [id number] [address] [place] [address], [place] [address] Nov, [facility] [address] [id number] [address] [place] [address], [place] [address] Nov, [facility] [address] [id number] [address] [place] [address], [place] [address] October, [facility] [address] [id number] [address] [place] [address], [place] [address] October, [facility] [address] [id number] [address] [place] [address], [place] [address] October, [facility] [address] [id number] [address] [place] [address], [place] [address] October, [facility] [address] [id number] [address] [place] [address], [place] [address] October, [facility] [address] [id number] [address] [place] [address], [place] [address] October, [facility] [address] [id number] [address] [place] [address], [place] [address] Sep, [facility] [address] [id number] [address] [place] [address], [place] [address] Sep, [facility] [address] [id number] [address] [place] [address], [place] [address] Sep, [facility] [address] [id number] [address] [place] [address], [place] [address] Sep, [facility] [address] [id number] [address] [place] [address], [place] [address] Sep, [facility] [address] [id number] [facility] [place] [address] 16 Sep, 2012 [facility] [address] [id number] [address] [place] [address], [place] [address] 12 Sep, 2012 [facility] [address] [id number] [address] [place] [address], [place] [address] Sep, [facility] [address] [id number] [address] [place] [address], [place] [address] Sep, [facility] [address] [id number] [address] [place] [address], [place] [address] Sep, [facility] [address] [id number] [address] [place] [address], [place] [address] Sep, [facility] [address] [id number] [address] [place] [address], [place] [address] Aug, [facility] [address] [id number] [address] [place] [address], [place] [address] 25 Aug, 2012 [facility] [address] [id number] [address] [place] [address], [place] [address] 25 Aug, 2012 [facility] [address] [id number] [address] [place] [address], [place] [address] 21 Aug, 2012 [facility] [address] [id number] [address] [place] [address], [place] [address] 19 Aug, 2012 [facility] [address] [id number] [address] [place] [address], [place] [address] 18 Aug, 2012 [facility] [address] [id number] [address] [place] [address], [place] [address] 17 Aug, 2012 [facility] [address] [id number] [address] [place] [address], [place] [address] 15 Aug, 2012 [facility] [address] [id number] [address] [place] [address], [place] [address] 15 Aug, 2012 [facility] [address] [id number] [address] [place] [address], [place] [address] Aug, [facility] [address] [id number] [address] [place] [address], [place] [address] Aug, [facility] [address] [id number] [address] [place] [address], [place] [address] Aug, [facility] [address] [id number] [address] [place] [address], [place] [address] Jul, [facility] [address] [id number] [address] [place] [address], [place] [address] Jul, [facility] [address] [id number] [address] [place] [address], [place] [address] Jul, [facility] [address] [id number] [address] [place] [address], [place] [address] Jul, [facility] [address] [id number] [address] [place] [address], [place] [address] Jul, [facility] [address] [id number] [address] [place] [address], [place] [address] Jul, [facility] [address] [id number] [address] [place] [address], [place] [address] Jul, [facility] [address] [id number] [address] [place] [address], [place] [address] Jul, [facility] [address] [id number] [address] [place] [address], [place] [address] Jul, [facility] [address] [id number] [address] [place] [address], [place] [address] Jul, [facility] [address] [id number] [address] [place] [address], [place] [address] May, [facility] [address] [id number] [place] [id number] May, [facility] [address] [id number] [address] [place] [address], [place] [address] May, [facility] [address] [id number] [address] [place] [id number] May, [facility] [address] [facility] [id number] [address] [place] [id number] May, [facility] [address] [facility] [id number] [address] [place] [id number] Apr, [facility] [address] [id number] [place] [id number] Apr, [facility] [address] [facility] [id number] [address] [place] [id number] Apr, [facility] [address] [facility] [id number] [address] [place] [id number] Mar, [facility] [address] [id number] [place] [id number] Mar, [facility] [address] [facility] [id number] [address] [place] [id number] Mar, [facility] [address] [id number] [place] [id number] Feb, [facility] [address] [facility] [id number] [address] [place] [id number] Feb, [facility] [address] [facility] [id number] [address] [place] [id number] Feb, [facility] [place] [address] [id number] [place] [id number] Feb, [facility] [address] [id number] [place] [id number] Feb, [facility] [address] [id number] [place] [id number] Jan, [facility] [address] [id number] [address] [place] [address], [place] [address] Jan, [facility] [address] [id number] [place] [id number] Jan, [facility] [address] [id number] [place] [id number] Jan, [facility] [address] [id number] [place] [id number] Jan, [facility] [address] [facility] [id number] [address] [place] [address], [place] [address] Jan, [facility] [address] [facility] [id number] [address] [place] [address], [place] [address] Jan, [facility] [address] [facility] [id number] [address] [place] [address], [place] [address] Aug, [facility] [place] [address] [id number] [place] [id number] Aug, [facility] [address] [facility] [id number] [address] [place] [address], [place] [address] Jul, [facility] [address] [facility] [id number] [address] [place] [address], [place] [address] Jul, [facility] [address] [facility] [id number] [address] [place] [address], [place] [address] Jul, [facility] [address] [id number] [place] [id number] Jul, [facility] [address] [facility] [id number] [address] [place] [address], [place] [address] Jul, [facility] [address] [id number] [place] [id number] Jul, [facility] [address] [facility] [id number] [address] [place] [address], [place] [address] Jul, [facility] [place] [address] [id number] [place] [id number] Jul, [facility] [place] [address] [id number] [place] [id number] Jul, [facility] [address] [id number] [place] [id number] Jul, [facility] [address] [facility] [id number] [address] [place] [address], [place] [address] May, [facility] [address] [id number] [address] [place] [id number] May, [facility] [address] [id number] [address] [place] [id number] May, [facility] [address] [id number] [address] [place] [id number] Apr, [facility] [address] [id number] [address] [place] [id number] Jan, [facility] [address] [id number] [address] [place] [id number] Jan, [facility] [address] [id number] [address] [place] [id number] Dec, [facility] [address] [id number] [address] [place] [id number] Dec, [facility] [address] [id number] [address] [place] [id number] May, [facility] [address] [id number] [address] [place] [id number] Mar, [facility] [address] [id number] [address] [place] [id number] Mar, [facility] [address] [id number] [address] [place] [id number] Jan, IMMUNIZATIONS No Known Immunizations SOCIAL HISTORY Never Assessed REASON FOR VISIT PLAN OF CARE VITAL SIGNS MEDICATIONS Unknown Medications RESULTS No Results PROCEDURES Procedure Date Ordered Result Body Site PROTHROMBIN TIME Aug 11, 2014 INSTRUCTIONS MEDICATIONS ADMINISTERED No Known Medications MEDICAL [...]
--- OUTSIDE RECORDS SUMMARY | 2020-01-28 12:23 | XMS REPORT ---
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 Active 389655301 Problem History of venous thromboembolism V12.51 Active 473259408 Problem Cellulitis of unspecified part of limb L03.119 Active 231485550 Problem Gastroesophageal reflux disease without esophagitis K21.9 Active 284012295 Problem History of pulmonary embolism Z86.711 Active 746146656 Problem Pseudotumor cerebri G93.2 Active 00880613 Problem History of DVT (deep vein thrombosis) Z86.718 Active [id number] ALLERGIES No Information ENCOUNTERS Encounter Location Date Diagnosis [place] [id number] [facility] [id number] [address] [place] [phone] Apr, penitentiary (current) use of 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 Z79.01 [facility] [address] [facility] [id number] [address] [place] [address] Apr, penitentiary 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.01 [facility] [address] [facility] [id number] [address] [place] [address] Apr, Cellulitis of unspecified pa rt of limb L03.119 ; Allergic contact dermatitis due to adhesives L23.1 and Chronic pain syndrome G89.4 [facility] [address] [facility] [id number] [address] [place] [address] Apr, [place] [address] [place] [id number] [address] [place] [address] Apr, 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.01 ; Cellulitis of unspecified part of limb L03.119 ; Chronic pain syndrome G89.4 and Anxiety F41.9 [facility] [address] [place] [id number] [address] [place] [address] 16 Apr, 2015 [facility] [address] [place] [id number] [place] [address] Apr, [place] [address] [place] [id number] [place] [address] Mar, [place] [address] [address] Mar, [place] [address] [address] Mar, Sore throat J02.9 ; Gastroes ophageal reflux disease without esophagitis K21.9 ; Pseudotumor cerebri G93.2 ; Chronic pain syndrome G89.4 ; Choriocarcinoma C58 ; History of pulmonary embolism Z86.711 ; History of DVT (deep vein thrombosis) Z86.718 ; Anxiety F41.9 and Tachycardia R00.0 [place] [address] [address] Feb, Anxiety 300.00 and Chronic p ain 338.29 [place] [address] [place] [id number] [address] [place] [address] Feb, [place] [address] [place] [id number] [address] [place] [address] Feb, [place] [address] [address] Jan, 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 therapy V58.61 and Dysuria 788.1 [place] [address] [place] [id number] [place] [address] Jan, Dysuria 788.1 [facility] [address] [place] [id number] [address] [place] [address] Jan, Anxiety 300.00 and Chronic p ain 338.29 [facility] [address] [place] [id number] [place] [address] Jan, [facility] [address] [address] Jan, [facility] [address] [address] Jan, [place] [address] [address] Dec, Weakness 780.79 [place] [address] [address] Dec, penitentiary 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 therapy V58.61 [place] [address] [address] Dec, Palpitations 785.1 ; Tremor 781.0 ; Weakness 780.79 ; penitentiary 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 therapy V58.61 and Yeast vaginitis 112.1 [place] [address] [place] [id number] [address] [place] [address] Dec, [place] [address] [address] Dec, Cervicalgia 723.1 ; Tachycar yoseph 785.0 ; Pseudotumor cerebri 348.2 and History of venous thromboembolism V12.51 [place] [address] [address] Nov, [place] [address] [address] Nov, [place] [address] [address] Nov, Tachycardia 785.0 ; Pseudotu mor cerebri 348.2 ; Anxiety 300.00 and History of venous thromboembolism V12.51 [facility] [address] [id number] [address] [place] [address] Nov, [facility] [address] [id number] [address] [place] [address] 18 Nov, 2014 [facility] [address] [id number] [address] [place] [address] Nov, [facility] [address] [id number] [address] [place] [address] Nov, [facility] [address] [facility] [id number] [address] [place] [address] Nov, [facility] [address] [facility] [id number] [address] [place] [address] Nov, [facility] [address] [facility] [id number] [address] [place] [address] Nov, [facility] [address] [facility] [id number] [address] [place] [address] October, [facility] [address] [facility] [id number] [address] [place] [address] October, [facility] [address] [place] [id number] [address] [place] [address] October, Pain in thoracic spine 724.1 and Tachycardia 785.0 [facility] [address] [id number] [address] [place] [address] October, [facility] [address] [id number] [address] [place] [address] October, [facility] [address] [facility] [id number] [address] [place] [address] 14 Sep, 2014 [facility] [address] [facility] [id number] [address] [place] [address] Sep, [facility] [address] [id number] [facility] [place] [address] Aug, [facility] [address] [id number] [address] [place] [address], [place] [address] Aug, [facility] [address] [id number] [address] [place] [address], [place] [address] Aug, [facility] [address] [id number] [address] [place] [address], [place] [address] Aug, [facility] [address] [id number] [address] [place] [address], [place] [address] Aug, [facility] [address] [id number] [address] [place] [address], [place] [address] Aug, [facility] [address] [id number] [address] [place] [address], [place] [address] Aug, [facility] [address] [id number] [address] [place] [address], [place] [address] Aug, [facility] [address] [id number] [address] [place] [address], [place] [address] Aug, [facility] [address] [id number] [address] [place] [address], [place] [address] Aug, [facility] [address] [id number] [address] [place] [address], [place] [address] Aug, [facility] [address] [id number] [address] [place] [address], [place] [address] Aug, 2014 [facility] [address] [id number] [address] [place] [address], [place] [address] Jul, [facility] [address] [id number] [address] [place] [address], [place] [address] Jul, [facility] [address] [id number] [address] [place] [address], [place] [address] Jul, [facility] [address] [id number] [address] [place] [address], [place] [address] Jul, [facility] [address] [id number] [address] [place] [address], [place] [address] 23 Jul, 2014 [facility] [address] [id number] [address] [place] [address], [place] [address] 23 Jul, 2014 [facility] [address] [id number] [address] [place] [address], [place] [address] 23 Jul, 2014 [facility] [address] [id number] [address] [place] [address], [place] [address] 23 Jul, 2014 [facility] [address] [id number] [address] [place] [address], [place] [address] 20 Jul, 2014 [facility] [address] [id number] [address] [place] [address], [place] [address] 20 Jul, 2014 [facility] [address] [id number] [address] [place] [address], [place] [address] 19 Jul, 2014 [facility] [address] [id number] [address] [place] [address], [place] [address] 19 Jul, 2014 [facility] [address] [id number] [address] [place] [address], [place] [address] 17 Jul, 2014 [facility] [address] [id number] [address] [place] [address], [place] [address] 17 Jul, 2014 [facility] [address] [id number] [address] [place] [address], [place] [address] 16 Jul, 2014 [facility] [address] [id number] [address] [place] [address], [place] [address] 16 Jul, 2014 [facility] [address] [id number] [address] [place] [address], [place] [address] 16 Jul, 2014 [facility] [address] [id number] [address] [place] [address] 16 Jul, 2014 [facility] [address] [id number] [address] [place] [address] 13 Jul, 2014 [facility] [address] [id number] [address] [place] [address], [place] [address] Jul, [facility] [address] [id number] [address] [place] [address], [place] [address] Jul, [facility] [address] [id number] [address] [place] [address], [place] [address] Jul, 2014 [facility] [address] [id number] [address] [place] [address], [place] [address] Jul, 2014 [facility] [address] [id number] [address] [place] [address], [place] [address] Jul, [facility] [address] [id number] [address] [place] [address], [place] [address] Jul, [facility] [address] [id number] [address] [place] [address], [place] [address] Jul, [facility] [address] [id number] [address] [place] [address], [place] [address] Jul, [facility] [address] [id number] [address] [place] [address], [place] [address] Jul, [facility] [address] [id number] [address] [place] [address], [place] [address] Jul, [facility] [address] [id number] [address] [place] [address], [place] [address] Jul, [facility] [address] [id number] [address] [place] [address], [place] [address] Jun, [facility] [address] [id number] [address] [place] [address], [place] [address] Jun, [facility] [address] [id number] [address] [place] [address], [place] [address] Jun, [facility] [address] [id number] [address] [place] [address], [place] [address] Jun, [facility] [address] [id number] [address] [place] [address], [place] [address] Jun, [facility] [address] [id number] [address] [place] [address], [place] [address] Jun, [facility] [address] [id number] [address] [place] [address], [place] [address] Jun, [facility] [address] [id number] [address] [place] [address], [place] [address] Jun, [facility] [address] [id number] [address] [place] [address], [place] [address] Jun, [facility] [address] [id number] [address] [place] [address], [place] [address] Jun, [facility] [address] [id number] [address] [place] [address], [place] [address] Jun, [facility] [address] [id number] [address] [place] [address], [place] [address] Jun, [facility] [address] [id number] [address] [place] [address], [place] [address] Jun, [facility] [address] [id number] [address] [place] [address], [place] [address] Jun, [facility] [address] [id number] [address] [place] [address], [place] [address] Jun, [facility] [address] [id number] [address] [place] [address], [place] [address] Jun, [facility] [address] [id number] [address] [place] [address], [place] [address] Jun, [facility] [address] [id number] [address] [place] [address], [place] [address] Jun, [facility] [address] [id number] [address] [place] [address], [place] [address] Jun, [facility] [address] [id number] [address] [place] [address], [place] [address] Jun, [facility] [address] [id number] [address] [place] [address], [place] [address] May, [facility] [address] [id number] [address] [place] [address], [place] [address] May, [facility] [address] [id number] [address] [place] [address], [place] [address] May, [facility] [address] [id number] [address] [place] [address], [place] [address] May, [facility] [address] [id number] [address] [place] [address], [place] [address] May, [facility] [address] [id number] [address] [place] [address], [place] [address] May, [facility] [address] [id number] [address] [place] [address], [place] [address] May, [facility] [address] [id number] [address] [place] [address], [place] [address] May, [facility] [address] [id number] [address] [place] [address], [place] [address] May, [facility] [address] [id number] [address] [place] [address], [place] [address] May, [facility] [address] [id number] [address] [place] [address], [place] [address] May, [facility] [address] [id number] [address] [place] [address], [place] [address] 18 May, 2014 [facility] [address] [id number] [address] [place] [address], [place] [address] 18 May, 2014 [facility] [address] [id number] [address] [place] [address], [place] [address] 17 May, 2014 [facility] [address] [id number] [address] [place] [address], [place] [address] 16 May, 2014 [facility] [address] [id number] [address] [place] [address], [place] [address] 16 May, 2014 [facility] [address] [id number] [address] [place] [address], [place] [address] 15 May, 2014 [facility] [address] [id number] [address] [place] [address], [place] [address] 15 May, 2014 [facility] [address] [id number] [address] [place] [address], [place] [address] May, [facility] [address] [id number] [address] [place] [address], [place] [address] May, [facility] [address] [id number] [address] [place] [address], [place] [address] May, [facility] [address] [id number] [address] [place] [address], [place] [address] May, [facility] [address] [id number] [address] [place] [address], [place] [address] May, [facility] [address] [id number] [address] [place] [address], [place] [address] May, [facility] [address] [id number] [address] [place] [address], [place] [address] May, [facility] [address] [id number] [address] [place] [address], [place] [address] May, [facility] [address] [id number] [address] [place] [address], [place] [address] May, [facility] [address] [id number] [address] [place] [address], [place] [address] May, [facility] [address] [id number] [address] [place] [address], [place] [address] May, [facility] [address] [id number] [address] [place] [address], [place] [address] May, [facility] [address] [id number] [address] [place] [address], [place] [address] May, [facility] [address] [id number] [address] [place] [address], [place] [address] May, [facility] [address] [id number] [address] [place] [address], [place] [address] May, [facility] [address] [id number] [address] [place] [address], [place] [address] May, [facility] [address] [id number] [address] [place] [address], [place] [address] Apr, [facility] [address] [id number] [address] [place] [address], [place] [address] Apr, [facility] [address] [id number] [address] [place] [address], [place] [address] Apr, [facility] [address] [id number] [address] [place] [address], [place] [address] Apr, [facility] [address] [id number] [address] [place] [address], [place] [address] Apr, [facility] [address] [id number] [address] [place] [address], [place] [address] Apr, [facility] [address] [id number] [address] [place] [address], [place] [address] Apr, [facility] [address] [id number] [address] [place] [address], [place] [address] Apr, [facility] [address] [id number] [address] [place] [address], [place] [address] Apr, [facility] [address] [id number] [address] [place] [address], [place] [address] Apr, [facility] [address] [id number] [address] [place] [address], [place] [address] Mar, [facility] [address] [id number] [address] [place] [address], [place] [address] Mar, [facility] [address] [id number] [address] [place] [address] [address] Mar, [facility] [address] [id number] [address] [place] [address], [place] [address] 31 Mar, 2013 [facility] [address] [id number] [address] [place] [address], [place] [address] Mar, [facility] [address] [id number] [address] [place] [address], [place] [address] 30 Mar, 2014 [facility] [address] [id number] [address] [place] [address], [place] [address] Mar, [facility] [address] [id number] [address] [place] [address], [place] [address] Mar, [facility] [address] [id number] [address] [place] [address], [place] [address] Mar, [facility] [address] [id number] [address] [place] [address], [place] [address] Mar, [facility] [address] [id number] [address] [place] [id number] Mar, [facility] [address] [id number] [address] [place] [id number] Mar, [facility] [address] [id number] [address] [place] [id number] Mar, [facility] [address] [id number] [address] [place] [id number] Mar, 2013 [facility] [address] [id number] [address] [place] [id number] Mar, 2013 [facility] [address] [id number] [address] [place] [id number] Mar, [facility] [address] [id number] [address] [place] [id number] Mar, [facility] [address] [id number] [address] [place] [id number] Mar, 2013 [facility] [address] [id number] [address] [place] [address], [place] [address] 02 Mar, 2013 [facility] [address] [id number] [address] [place] [address], [place] [address] 02 Mar, 2013 [facility] [address] [id number] [address] [place] [address], [place] [address] 05 Sep, 2013 [facility] [address] [id number] [address] [place] [address], [place] [address] 05 Sep, 2013 [facility] [address] [id number] [address] [place] [address], [place] [address] 04 Sep, 2013 [facility] [address] [id number] [address] [place] [address], [place] [address] 04 Sep, 2013 [facility] [address] [id number] [address] [place] [address], [place] [address] 03 Feb, 2013 [facility] [address] [id number] [address] [place] [address], [place] [address] 03 Feb, 2013 [facility] [address] [id number] [address] [place] [address], [place] [address] 02 Feb, 2013 [facility] [address] [id number] [address] [place] [address], [place] [address] Feb, 2013 [facility] [address] [id number] [address] [place] [address], [place] [address] 02 Feb, 2013 [facility] [address] [id number] [address] [place] [address], [place] [address] Feb, 2013 [facility] [address] [id number] [address] [place] [address], [place] [address] Jan, [facility] [address] [id number] [address] [place] [address], [place] [address] Jan, [facility] [address] [id number] [address] [place] [address], [place] [address] Jan, [facility] [address] [id number] [address] [place] [address], [place] [address] Jan, [facility] [address] [id number] [facility] [place] [address] Jan, [facility] [address] [id number] [address] [place] [address], [place] [address] Jan, [facility] [address] [id number] [address] [place] [address], [place] [address] Jan, [facility] [address] [id number] [address] [place] [address], [place] [address] Jan, [facility] [address] [id number] [address] [place] [address], [place] [address] Jan, [facility] [address] [id number] [address] [place] [address], [place] [address] Jan, [facility] [address] [id number] [address] [place] [address], [place] [address] Jan, [facility] [address] [id number] [address] [place] [address], [place] [address] Jan, [facility] [address] [id number] [address] [place] [address], [place] [address] Dec, [facility] [address] [id number] [address] [place] [address], [place] [address] Dec, [facility] [address] [id number] [address] [place] [address], [place] [address] Dec, [facility] [address] [id number] [address] [place] [address], [place] [address] Dec, [facility] [address] [id number] [address] [place] [address], [place] [address] Dec, [facility] [address] [id number] [address] [place] [address], [place] [address] Dec, [facility] [address] [id number] [address] [place] [address], [place] [address] Dec, [facility] [address] [id number] [address] [place] [address], [place] [address] Dec, [facility] [address] [id number] [address] [place] [address] Dec, [facility] [address] [id number] [address] [place] [address], [place] [address] Dec, [facility] [address] [id number] [address] [place] [address], [place] [address] Dec, [facility] [address] [id number] [address] [place] [address], [place] [address] Dec, [facility] [address] [id number] [address] [place] [address], [place] [address] Nov, [facility] [address] [id number] [address] [place] [address], [place] [address] Nov, [facility] [address] [id number] [address] [place] [address], [place] [address] Nov, [facility] [address] [id number] [address] [place] [address], [place] [address] Nov, [facility] [address] [id number] [address] [place] [address], [place] [address] Nov, [facility] [address] [id number] [address] [place] [address], [place] [address] Nov, [facility] [address] [id number] [address] [place] [address], [place] [address] Nov, [facility] [address] [id number] [address] [place] [address], [place] [address] Nov, [facility] [address] [id number] [address] [place] [address], [place] [address] Nov, [facility] [address] [id number] [address] [place] [address], [place] [address] Nov, [facility] [address] [id number] [address] [place] [address], [place] [address] Nov, [facility] [address] [id number] [facility] [place] [address] Nov, [facility] [address] [id number] [address] [place] [address], [place] [address] Nov, [facility] [address] [id number] [address] [place] [address], [place] [address] Nov, [facility] [address] [id number] [address] [place] [address], [place] [address] October, [facility] [address] [id number] [address] [place] [address], [place] [address] October, [facility] [address] [id number] [address] [place] [address], [place] [address] October, [facility] [address] [id number] [address] [place] [address], [place] [address] October, [facility] [address] [id number] [address] [place] [address], [place] [address] October, [facility] [address] [id number] [address] [place] [address], [place] [address] October, [facility] [address] [id number] [address] [place] [address], [place] [address] October, [facility] [address] [id number] [address] [place] [address], [place] [address] October, [facility] [address] [id number] [address] [place] [address], [place] [address] October, [facility] [address] [id number] [address] [place] [address], [place] [address] October, [facility] [address] [id number] [address] [place] [address], [place] [address] October, [facility] [address] [id number] [address] [place] [address], [place] [address] October, [facility] [address] [id number] [address] [place] [address], [place] [address] Sep, [facility] [address] [id number] [facility] [place] [address] Sep, [facility] [address] [id number] [address] [place] [address], [place] [address] Sep, [facility] [address] [id number] [facility] [place] [address] Sep, [facility] [address] [id number] [address] [place] [address], [place] [address] Sep, [facility] [address] [id number] [address] [place] [address], [place] [address] Sep, [facility] [address] [id number] [address] [place] [address], [place] [address] Aug, [facility] [address] [id number] [address] [place] [address], [place] [address] Aug, [facility] [address] [id number] [address] [place] [address], [place] [address] Aug, [facility] [address] [id number] [address] [place] [address], [place] [address] Aug, [facility] [address] [id number] [address] [place] [address], [place] [address] Aug, [facility] [address] [id number] [address] [place] [address], [place] [address] Aug, [facility] [address] [id number] [address] [place] [address], [place] [address] Jul, [facility] [address] [id number] [address] [place] [address], [place] [address] Jul, [facility] [address] [id number] [address] [place] [address], [place] [address] Jul, [facility] [address] [id number] [address] [place] [address], [place] [address] Jul, [facility] [address] [id number] [address] [place] [address], [place] [address] 13 Jul, 2013 [facility] [address] [id number] [address] [place] [address], [place] [address] Jul, [facility] [address] [id number] [address] [place] [address], [place] [address] Jul, [facility] [address] [id number] [address] [place] [address], [place] [address] Jul, [facility] [address] [id number] [address] [place] [address], [place] [address] Jul, [facility] [address] [id number] [address] [place] [address], [place] [address] Jul, [facility] [address] [id number] [address] [place] [address], [place] [address] Jun, [facility] [address] [id number] [address] [place] [address], [place] [address] Jun, [facility] [address] [id number] [address] [place] [address], [place] [address] Jun, [facility] [address] [id number] [address] [place] [address], [place] [address] Jun, [facility] [address] [id number] [address] [place] [address], [place] [address] Jun, [facility] [address] [id number] [address] [place] [address], [place] [address] Jun, [facility] [address] [id number] [address] [place] [address], [place] [address] Jun, [facility] [address] [id number] [address] [place] [address], [place] [address] Jun, [facility] [address] [id number] [address] [place] [address], [place] [address] May, [facility] [address] [id number] [address] [place] [address], [place] [address] May, [facility] [address] [id number] [address] [place] [address], [place] [address] May, [facility] [address] [id number] [address] [place] [address], [place] [address] May, [facility] [address] [id number] [address] [place] [address], [place] [address] May, [facility] [address] [id number] [address] [place] [address], [place] [address] May, [facility] [address] [id number] [address] [place] [address], [place] [address] May, [facility] [address] [id number] [address] [place] [address], [place] [address] May, [facility] [address] [id number] [address] [place] [address], [place] [address] Apr, [facility] [address] [id number] [address] [place] [address] Apr, [facility] [address] [id number] [address] [place] [address], [place] [address] Apr, [facility] [address] [id number] [address] [place] [address] Apr, [facility] [address] [id number] [address] [place] [address] Apr, [facility] [address] [id number] [address] [place] [address] Apr, [facility] [address] [id number] [address] [place] [address], [place] [address] Mar, [facility] [address] [id number] [address] [place] [address] Mar, [facility] [address] [id number] [address] [place] [address], [place] [address] Mar, [facility] [address] [id number] [address] [place] [address], [place] [address] Mar, [facility] [address] [id number] [address] [place] [address], [place] [address] Mar, [facility] [address] [id number] [address] [place] [address], [place] [address] Mar, [facility] [address] [id number] [address] [place] [address], [place] [address] Mar, [facility] [address] [id number] [address] [place] [address], [place] [address] 30 Feb, 2012 [facility] [address] [id number] [address] [place] [address], [place] [address] 30 Feb, 2013 [facility] [address] [id number] [address] [place] [address], [place] [address] 27 Feb, 2013 [facility] [address] [id number] [address] [place] [address], [place] [address] Feb, 2012 [facility] [address] [id number] [address] [place] [address], [place] [address] Feb, [facility] [address] [id number] [address] [place] [address], [place] [address] Feb, [facility] [address] [id number] [address] [place] [address], [place] [address] Jan, [facility] [address] [id number] [address] [place] [address], [place] [address] Jan, [facility] [address] [id number] [address] [place] [address], [place] [address] Jan, [facility] [address] [id number] [address] [place] [address], [place] [address] Jan, [facility] [address] [id number] [address] [place] [address], [place] [address] Jan, [facility] [address] [id number] [address] [place] [address], [place] [address] Jan, [facility] [address] [id number] [address] [place] [address], [place] [address] Jan, [facility] [address] [id number] [address] [place] [address], [place] [address] Jan, [facility] [address] [id number] [address] [place] [address], [place] [address] Jan, [facility] [address] [id number] [address] [place] [address], [place] [address] Dec, [facility] [address] [id number] [address] [place] [address], [place] [address] Dec, [facility] [address] [id number] [address] [place] [address], [place] [address] Dec, [facility] [address] [id number] [address] [place] [address], [place] [address] Dec, [facility] [address] [id number] [address] [place] [address], [place] [address] Dec, [facility] [address] [id number] [address] [place] [address], [place] [address] Dec, [facility] [address] [id number] [address] [place] [address], [place] [address] Dec, [facility] [address] [id number] [address] [place] [address], [place] [address] Dec, [facility] [address] [id number] [address] [place] [address], [place] [address] Dec, [facility] [address] [id number] [address] [place] [address], [place] [address] Dec, [facility] [address] [id number] [address] [place] [address], [place] [address] Dec, [facility] [address] [id number] [address] [place] [address], [place] [address] Dec, [facility] [address] [id number] [address] [place] [address], [place] [address] Dec, [facility] [place] [address] [id number] [address] [place] [address], [place] [address] Nov, [facility] [address] [id number] [address] [place] [address], [place] [address] Nov, [facility] [address] [id number] [address] [place] [address], [place] [address] Nov, [facility] [address] [id number] [address] [place] [address], [place] [address] Nov, [facility] [address] [id number] [address] [place] [address], [place] [address] October, [facility] [address] [id number] [address] [place] [address], [place] [address] October, [facility] [address] [id number] [address] [place] [address], [place] [address] October, [facility] [address] [id number] [address] [place] [address], [place] [address] October, [facility] [address] [id number] [address] [place] [address], [place] [address] October, [facility] [address] [id number] [address] [place] [address], [place] [address] October, [facility] [address] [id number] [address] [place] [address], [place] [address] Sep, [facility] [address] [id number] [address] [place] [address], [place] [address] Sep, [facility] [address] [id number] [address] [place] [address], [place] [address] Sep, [facility] [address] [id number] [address] [place] [address], [place] [address] Sep, [facility] [address] [id number] [address] [place] [address], [place] [address] Sep, [facility] [address] [id number] [facility] [place] [address] 16 Sep, 2012 [facility] [address] [id number] [address] [place] [address], [place] [address] 12 Sep, 2012 [facility] [address] [id number] [address] [place] [address], [place] [address] Sep, [facility] [address] [id number] [address] [place] [address], [place] [address] Sep, [facility] [place] [address] [id number] [address] [place] [address], [place] [address] Sep, [facility] [place] [address] [id number] [address] [place] [address], [place] [address] Sep, [facility] [address] [id number] [address] [place] [address], [place] [address] Aug, [facility] [address] [id number] [address] [place] [address], [place] [address] 25 Aug, 2012 [facility] [address] [id number] [address] [place] [address], [place] [address] 25 Aug, 2012 [facility] [address] [id number] [address] [place] [address], [place] [address] 21 Aug, 2012 [facility] [address] [id number] [address] [place] [address], [place] [address] 19 Aug, 2012 [facility] [address] [id number] [address] [place] [address], [place] [address] 18 Aug, 2012 [facility] [address] [id number] [address] [place] [address], [place] [address] 17 Aug, 2012 [facility] [place] [address] [id number] [address] [place] [address], [place] [address] 15 Aug, 2012 [facility] [address] [id number] [address] [place] [address], [place] [address] 15 Aug, 2012 [facility] [address] [id number] [address] [place] [address], [place] [address] Aug, [facility] [address] [id number] [address] [place] [address], [place] [address] Aug, [facility] [address] [id number] [address] [place] [address], [place] [address] Aug, [facility] [address] [id number] [address] [place] [address], [place] [address] Jul, [facility] [address] [id number] [address] [place] [address], [place] [address] Jul, [facility] [address] [id number] [address] [place] [address], [place] [address] Jul, [facility] [address] [id number] [address] [place] [address], [place] [address] Jul, [facility] [address] [id number] [address] [place] [address], [place] [address] Jul, [facility] [address] [id number] [address] [place] [address], [place] [address] Jul, [facility] [address] [id number] [address] [place] [address], [place] [address] Jul, [facility] [place] [address] [id number] [address] [place] [address], [place] [address] Jul, [facility] [address] [id number] [address] [place] [address], [place] [address] Jul, [facility] [address] [id number] [address] [place] [address], [place] [address] Jul, [facility] [address] [id number] [address] [place] [address], [place] [address] May, [facility] [address] [id number] [place] [id number] May, [facility] [address] [id number] [address] [place] [address], [place] [address] May, [facility] [address] [id number] [address] [place] [address] May, [facility] [address] [facility] [id number] [address] [place] [address] May, [facility] [address] [facility] [id number] [address] [place] [address] Apr, [facility] [address] [id number] [place] [id number] Apr, [facility] [address] [facility] [id number] [address] [place] [address] Apr, [facility] [address] [facility] [id number] [address] [place] [phone] Mar, [facility] [address] [id number] [place] [id number] Mar, [facility] [address] [facility] [id number] [address] [place] [phone] Mar, [facility] [address] [id number] [place] [id number] Feb, [facility] [address] [facility] [id number] [address] [place] [phone] Feb, [facility] [address] [facility] [id number] [address] [place] [id number] Feb, [facility] [address] [id number] [place] [id number] Feb, [facility] [address] [id number] [place] [id number] Feb, [facility] [address] [id number] [place] [id number] Jan, [facility] [address] [id number] [address] [place] [address], [place] [address] Jan, [facility] [address] [id number] [place] [id number] Jan, [facility] [address] [id number] [place] [id number] Jan, [facility] [address] [id number] [place] [id number] Jan, [facility] [address] [facility] [id number] [address] [place] [address], [place] [address] Jan, [facility] [address] [facility] [id number] [address] [place] [address], [place] [address] Jan, [facility] [address] [facility] [id number] [address] [place] [address], [place] [address] Aug, [facility] [address] [id number] [place] [id number] Aug, [facility] [address] [facility] [id number] [address] [place] [address], [place] [address] Jul, [facility] [address] [facility] [id number] [address] [place] [address], [place] [address] Jul, [facility] [address] [facility] [id number] [address] [place] [address], [place] [address] Jul, [facility] [address] [id number] [place] [id number] Jul, [facility] [address] [facility] [id number] [address] [place] [address], [place] [address] Jul, [facility] [address] [id number] [place] [id number] Jul, [facility] [address] [facility] [id number] [address] [place] [address], [place] [address] Jul, [facility] [address] [id number] [place] [id number] Jul, [facility] [address] [id number] [place] [id number] Jul, [facility] [address] [id number] [place] [id number] Jul, [facility] [address] [facility] [id number] [address] [place] [address], [place] [address] May, [facility] [address] [id number] [address] [place] [phone] May, [facility] [address] [id number] [address] [place] [id number] May, [facility] [address] [id number] [address] [place] [id number] Apr, [facility] [address] [id number] [address] [place] [id number] Jan, [facility] [address] [id number] [address] [place] [phone] Jan, [facility] [address] [id number] [address] [place] [phone] Dec, [facility] [address] [id number] [address] [place] [phone] Dec, [facility] [address] [id number] [address] [place] [phone] May, [facility] [address] [id number] [address] [place] [id number] Mar, [facility] [address] [id number] [address] [place] [id number] Mar, [facility] [address] [id number] [address] [place] [phone] Jan, IMMUNIZATIONS No Known Immunizations SOCIAL HISTORY Never Assessed REASON FOR VISIT PLAN OF CARE VITAL SIGNS MEDICATIONS Unknown Medications RESULTS No Results PROCEDURES Procedure Date Ordered Result Body Site PROTHROMBIN TIME Jun 17, 2014 INSTRUCTIONS MEDICATIONS ADMINISTERED No Known Medications [...]
--- OUTSIDE RECORDS SUMMARY | 2020-01-28 12:23 | XMS REPORT ---
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 Active 962802266 Problem History of venous thromboembolism V12.51 Active 044045227 Problem Cellulitis of unspecified part of limb L03.119 Active 699138077 Problem Gastroesophageal reflux disease without esophagitis K21.9 Active 049389938 Problem History of pulmonary embolism Z86.711 Active 608913579 Problem Pseudotumor cerebri G93.2 Active 80215809 Problem History of DVT (deep vein thrombosis) Z86.718 Active 272008658 ALLERGIES No Information ENCOUNTERS Encounter Location Date Diagnosis [place] [id number] [facility] [id number] [address] [place] [address] Apr, group home (current) use of 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 Z79.01 [facility] [address] [facility] [id number] [address] [place] [address] Apr, group home 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.01 [facility] [address] [facility] [id number] [address] [place] [address] Apr, Cellulitis of unspecified pa rt of limb L03.119 ; Allergic contact dermatitis due to adhesives L23.1 and Chronic pain syndrome G89.4 [facility] [address] [facility] [id number] [address] [place] [address] Apr, [place] [address] [place] [id number] [address] [place] [address] Apr, lobsterman 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.01 ; Cellulitis of unspecified part of limb L03.119 ; Chronic pain syndrome G89.4 and Anxiety F41.9 [facility] [address] [place] [id number] [address] [place] [address] 16 Apr, 2015 [facility] [address] [place] [id number] [place] [address] Apr, [place] [address] [place] [id number] [place] [address] Mar, [place] [address] [address] Mar, [place] [address] [address] Mar, Sore throat J02.9 ; Gastroes ophageal reflux disease without esophagitis K21.9 ; Pseudotumor cerebri G93.2 ; Chronic pain syndrome G89.4 ; Choriocarcinoma C58 ; History of pulmonary embolism Z86.711 ; History of DVT (deep vein thrombosis) Z86.718 ; Anxiety F41.9 and Tachycardia R00.0 [place] [address] [address] Feb, Anxiety 300.00 and Chronic p ain 338.29 [place] [address] [place] [id number] [address] [place] [address] Feb, [place] [address] [place] [id number] [address] [place] [address] Feb, [place] [address] [address] Jan, lobsterman 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 therapy V58.61 and Dysuria 788.1 [place] [address] [place] [id number] [place] [address] Jan, Dysuria 788.1 [facility] [address] [place] [id number] [address] [place] [address] Jan, Anxiety 300.00 and Chronic p ain 338.29 [facility] [address] [place] [id number] [place] [address] Jan, [facility] [address] [address] Jan, [facility] [address] [address] Jan, [place] [address] [address] Dec, Weakness 780.79 [place] [address] [address] Dec, group home 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 therapy V58.61 [place] [address] [address] Dec, Palpitations 785.1 ; Tremor 781.0 ; Weakness 780.79 ; group home 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 therapy V58.61 and Yeast vaginitis 112.1 [place] [address] [place] [id number] [address] [place] [address] Dec, [place] [address] [address] Dec, Cervicalgia 723.1 ; Tachycar yoseph 785.0 ; Pseudotumor cerebri 348.2 and History of venous thromboembolism V12.51 [place] [address] [address] Nov, [place] [address] [address] Nov, [place] [address] [address] Nov, Tachycardia 785.0 ; Pseudotu mor cerebri 348.2 ; Anxiety 300.00 and History of venous thromboembolism V12.51 [facility] [address] [id number] [address] [place] [address] Nov, [facility] [address] [id number] [address] [place] [address] 18 Nov, 2014 [facility] [address] [id number] [address] [place] [address] Nov, [facility] [address] [id number] [address] [place] [address] Nov, [facility] [address] [facility] [id number] [address] [place] [address] Nov, [facility] [address] [facility] [id number] [address] [place] [address] Nov, [facility] [address] [facility] [id number] [address] [place] [address] Nov, [facility] [address] [facility] [id number] [address] [place] [address] October, [facility] [address] [facility] [id number] [address] [place] [address] October, [facility] [address] [place] [id number] [address] [place] [address] October, Pain in thoracic spine 724.1 and Tachycardia 785.0 [facility] [address] [id number] [address] [place] [address] October, [facility] [address] [id number] [address] [place] [address] October, [facility] [address] [facility] [id number] [address] [place] [address] 14 Sep, 2014 [facility] [address] [facility] [id number] [address] [place] [address] Sep, [facility] [address] [id number] [facility] [place] [address] Aug, [facility] [address] [id number] [address] [place] [address], [place] [address] Aug, [facility] [address] [id number] [address] [place] [address], [place] [address] Aug, [facility] [address] [id number] [address] [place] [address], [place] [address] Aug, [facility] [address] [id number] [address] [place] [address], [place] [address] Aug, [facility] [address] [id number] [address] [place] [address], [place] [address] Aug, [facility] [address] [id number] [address] [place] [address], [place] [address] Aug, [facility] [address] [id number] [address] [place] [address], [place] [address] Aug, [facility] [address] [id number] [address] [place] [address], [place] [address] Aug, [facility] [address] [id number] [address] [place] [address], [place] [address] Aug, [facility] [address] [id number] [address] [place] [address], [place] [address] Aug, [facility] [address] [id number] [address] [place] [address], [place] [address] Aug, 2014 [facility] [address] [id number] [address] [place] [address], [place] [address] Jul, [facility] [address] [id number] [address] [place] [address], [place] [address] Jul, [facility] [address] [id number] [address] [place] [address], [place] [address] Jul, [facility] [address] [id number] [address] [place] [address], [place] [address] Jul, [facility] [address] [id number] [address] [place] [address], [place] [address] 23 Jul, 2014 [facility] [address] [id number] [address] [place] [address], [place] [address] 23 Jul, 2014 [facility] [address] [id number] [address] [place] [address], [place] [address] 23 Jul, 2014 [facility] [address] [id number] [address] [place] [address], [place] [address] 23 Jul, 2014 [facility] [address] [id number] [address] [place] [address], [place] [address] 20 Jul, 2014 [facility] [address] [id number] [address] [place] [address], [place] [address] 20 Jul, 2014 [facility] [address] [id number] [address] [place] [address], [place] [address] 19 Jul, 2014 [facility] [address] [id number] [address] [place] [address], [place] [address] 19 Jul, 2014 [facility] [address] [id number] [address] [place] [address], [place] [address] 17 Jul, 2014 [facility] [address] [id number] [address] [place] [address], [place] [address] 17 Jul, 2014 [facility] [address] [id number] [address] [place] [address], [place] [address] 16 Jul, 2014 [facility] [address] [id number] [address] [place] [address], [place] [address] 16 Jul, 2014 [facility] [address] [id number] [address] [place] [address], [place] [address] 16 Jul, 2014 [facility] [address] [id number] [address] [place] [address] 16 Jul, 2014 [facility] [address] [id number] [address] [place] [address] 13 Jul, 2014 [facility] [address] [id number] [address] [place] [address], [place] [address] Jul, [facility] [address] [id number] [address] [place] [address], [place] [address] Jul, [facility] [address] [id number] [address] [place] [address], [place] [address] Jul, 2014 [facility] [address] [id number] [address] [place] [address], [place] [address] Jul, 2014 [facility] [address] [id number] [address] [place] [address], [place] [address] Jul, [facility] [address] [id number] [address] [place] [address], [place] [address] Jul, [facility] [address] [id number] [address] [place] [address], [place] [address] Jul, [facility] [address] [id number] [address] [place] [address], [place] [address] Jul, [facility] [address] [id number] [address] [place] [address], [place] [address] Jul, [facility] [address] [id number] [address] [place] [address], [place] [address] Jul, [facility] [address] [id number] [address] [place] [address], [place] [address] Jul, [facility] [address] [id number] [address] [place] [address], [place] [address] Jun, [facility] [address] [id number] [address] [place] [address], [place] [address] Jun, [facility] [address] [id number] [address] [place] [address], [place] [address] Jun, [facility] [address] [id number] [address] [place] [address], [place] [address] Jun, [facility] [address] [id number] [address] [place] [address], [place] [address] Jun, [facility] [address] [id number] [address] [place] [address], [place] [address] Jun, [facility] [address] [id number] [address] [place] [address], [place] [address] Jun, [facility] [address] [id number] [address] [place] [address], [place] [address] Jun, [facility] [address] [id number] [address] [place] [address], [place] [address] Jun, [facility] [address] [id number] [address] [place] [address], [place] [address] Jun, [facility] [address] [id number] [address] [place] [address], [place] [address] Jun, [facility] [address] [id number] [address] [place] [address], [place] [address] Jun, [facility] [address] [id number] [address] [place] [address], [place] [address] Jun, [facility] [address] [id number] [address] [place] [address], [place] [address] Jun, [facility] [address] [id number] [address] [place] [address], [place] [address] Jun, [facility] [address] [id number] [address] [place] [address], [place] [address] Jun, [facility] [address] [id number] [address] [place] [address], [place] [address] Jun, [facility] [address] [id number] [address] [place] [address], [place] [address] Jun, [facility] [address] [id number] [address] [place] [address], [place] [address] Jun, [facility] [address] [id number] [address] [place] [address], [place] [address] Jun, [facility] [address] [id number] [address] [place] [address], [place] [address] May, [facility] [address] [id number] [address] [place] [address], [place] [address] May, [facility] [address] [id number] [address] [place] [address], [place] [address] May, [facility] [address] [id number] [address] [place] [address], [place] [address] May, [facility] [address] [id number] [address] [place] [address], [place] [address] May, [facility] [address] [id number] [address] [place] [address], [place] [address] May, [facility] [address] [id number] [address] [place] [address], [place] [address] May, [facility] [address] [id number] [address] [place] [address], [place] [address] May, [facility] [address] [id number] [address] [place] [address], [place] [address] May, [facility] [address] [id number] [address] [place] [address], [place] [address] May, [facility] [address] [id number] [address] [place] [address], [place] [address] May, [facility] [address] [id number] [address] [place] [address], [place] [address] 18 May, 2014 [facility] [address] [id number] [address] [place] [address], [place] [address] 18 May, 2014 [facility] [address] [id number] [address] [place] [address], [place] [address] 17 May, 2014 [facility] [address] [id number] [address] [place] [address], [place] [address] 16 May, 2014 [facility] [address] [id number] [address] [place] [address], [place] [address] 16 May, 2014 [facility] [address] [id number] [address] [place] [address], [place] [address] 15 May, 2014 [facility] [address] [id number] [address] [place] [address], [place] [address] 15 May, 2014 [facility] [address] [id number] [address] [place] [address], [place] [address] May, [facility] [address] [id number] [address] [place] [address], [place] [address] May, [facility] [address] [id number] [address] [place] [address], [place] [address] May, [facility] [address] [id number] [address] [place] [address], [place] [address] May, [facility] [address] [id number] [address] [place] [address], [place] [address] May, [facility] [address] [id number] [address] [place] [address], [place] [address] May, [facility] [address] [id number] [address] [place] [address], [place] [address] May, [facility] [address] [id number] [address] [place] [address], [place] [address] May, [facility] [address] [id number] [address] [place] [address], [place] [address] May, [facility] [address] [id number] [address] [place] [address], [place] [address] May, [facility] [address] [id number] [address] [place] [address], [place] [address] May, [facility] [address] [id number] [address] [place] [address], [place] [address] May, [facility] [address] [id number] [address] [place] [address], [place] [address] May, [facility] [address] [id number] [address] [place] [address], [place] [address] May, [facility] [address] [id number] [address] [place] [address], [place] [address] May, [facility] [address] [id number] [address] [place] [address], [place] [address] May, [facility] [address] [id number] [address] [place] [address], [place] [address] Apr, [facility] [address] [id number] [address] [place] [address], [place] [address] Apr, [facility] [address] [id number] [address] [place] [address], [place] [address] Apr, [facility] [address] [id number] [address] [place] [address], [place] [address] Apr, [facility] [address] [id number] [address] [place] [address], [place] [address] Apr, [facility] [address] [id number] [address] [place] [address], [place] [address] Apr, [facility] [address] [id number] [address] [place] [address], [place] [address] Apr, [facility] [address] [id number] [address] [place] [address], [place] [address] Apr, [facility] [address] [id number] [address] [place] [address], [place] [address] Apr, [facility] [address] [id number] [address] [place] [address], [place] [address] Apr, [facility] [address] [id number] [address] [place] [address], [place] [address] Mar, [facility] [address] [id number] [address] [place] [address], [place] [address] Mar, [facility] [address] [id number] [address] [place] [address] [address] Mar, [facility] [address] [id number] [address] [place] [address], [place] [address] 31 Mar, 2013 [facility] [address] [id number] [address] [place] [address], [place] [address] Mar, [facility] [address] [id number] [address] [place] [address], [place] [address] 30 Mar, 2014 [facility] [address] [id number] [address] [place] [address], [place] [address] Mar, [facility] [address] [id number] [address] [place] [address], [place] [address] Mar, [facility] [address] [id number] [address] [place] [address], [place] [address] Mar, [facility] [address] [id number] [address] [place] [address], [place] [address] Mar, [facility] [address] [id number] [address] [place] [id number] Mar, [facility] [address] [id number] [address] [place] [address] Mar, [facility] [address] [id number] [address] [place] [address] Mar, [facility] [address] [id number] [address] [place] [id number] Mar, 2013 [facility] [address] [id number] [address] [place] [id number] Mar, 2013 [facility] [address] [id number] [address] [place] [id number] Mar, [facility] [address] [id number] [address] [place] [id number] Mar, [facility] [address] [id number] [address] [place] [id number] Mar, 2013 [facility] [address] [id number] [address] [place] [address], [place] [address] 02 Mar, 2013 [facility] [address] [id number] [address] [place] [address], [place] [address] 02 Mar, 2013 [facility] [address] [id number] [address] [place] [address], [place] [address] 05 Sep, 2013 [facility] [address] [id number] [address] [place] [address], [place] [address] 05 Sep, 2013 [facility] [address] [id number] [address] [place] [address], [place] [address] 04 Sep, 2013 [facility] [address] [id number] [address] [place] [address], [place] [address] 04 Sep, 2013 [facility] [address] [id number] [address] [place] [address], [place] [address] 03 Feb, 2013 [facility] [address] [id number] [address] [place] [address], [place] [address] 03 Feb, 2013 [facility] [address] [id number] [address] [place] [address], [place] [address] 02 Feb, 2013 [facility] [address] [id number] [address] [place] [address], [place] [address] Feb, 2013 [facility] [address] [id number] [address] [place] [address], [place] [address] 02 Feb, 2013 [facility] [address] [id number] [address] [place] [address], [place] [address] Feb, 2013 [facility] [address] [id number] [address] [place] [address], [place] [address] Jan, [facility] [address] [id number] [address] [place] [address], [place] [address] Jan, [facility] [address] [id number] [address] [place] [address], [place] [address] Jan, [facility] [address] [id number] [address] [place] [address], [place] [address] Jan, [facility] [address] [id number] [facility] [place] [address] Jan, [facility] [address] [id number] [address] [place] [address], [place] [address] Jan, [facility] [address] [id number] [address] [place] [address], [place] [address] Jan, [facility] [address] [id number] [address] [place] [address], [place] [address] Jan, [facility] [address] [id number] [address] [place] [address], [place] [address] Jan, [facility] [address] [id number] [address] [place] [address], [place] [address] Jan, [facility] [address] [id number] [address] [place] [address], [place] [address] Jan, [facility] [address] [id number] [address] [place] [address], [place] [address] Jan, [facility] [address] [id number] [address] [place] [address], [place] [address] Dec, [facility] [address] [id number] [address] [place] [address], [place] [address] Dec, [facility] [address] [id number] [address] [place] [address], [place] [address] Dec, [facility] [address] [id number] [address] [place] [address], [place] [address] Dec, [facility] [address] [id number] [address] [place] [address], [place] [address] Dec, [facility] [address] [id number] [address] [place] [address], [place] [address] Dec, [facility] [address] [id number] [address] [place] [address], [place] [address] Dec, [facility] [address] [id number] [address] [place] [address], [place] [address] Dec, [facility] [address] [id number] [facility] [place] [address] Dec, [facility] [address] [id number] [address] [place] [address], [place] [address] Dec, [facility] [address] [id number] [address] [place] [address], [place] [address] Dec, [facility] [address] [id number] [address] [place] [address], [place] [address] Dec, [facility] [address] [id number] [address] [place] [address], [place] [address] Nov, [facility] [address] [id number] [address] [place] [address], [place] [address] Nov, [facility] [address] [id number] [address] [place] [address], [place] [address] Nov, [facility] [address] [id number] [address] [place] [address], [place] [address] Nov, [facility] [address] [id number] [address] [place] [address], [place] [address] Nov, [facility] [address] [id number] [address] [place] [address], [place] [address] Nov, [facility] [address] [id number] [address] [place] [address], [place] [address] Nov, [facility] [address] [id number] [address] [place] [address], [place] [address] Nov, [facility] [address] [id number] [address] [place] [address], [place] [address] Nov, [facility] [address] [id number] [address] [place] [address], [place] [address] Nov, [facility] [address] [id number] [address] [place] [address], [place] [address] Nov, [facility] [address] [id number] [facility] [place] [address] Nov, [facility] [address] [id number] [address] [place] [address], [place] [address] Nov, [facility] [address] [id number] [address] [place] [address], [place] [address] Nov, [facility] [address] [id number] [address] [place] [address], [place] [address] October, [facility] [address] [id number] [address] [place] [address], [place] [address] October, [facility] [address] [id number] [address] [place] [address], [place] [address] October, [facility] [address] [id number] [address] [place] [address], [place] [address] October, [facility] [address] [id number] [address] [place] [address], [place] [address] October, [facility] [address] [id number] [address] [place] [address], [place] [address] October, [facility] [address] [id number] [address] [place] [address], [place] [address] October, [facility] [address] [id number] [address] [place] [address], [place] [address] October, [facility] [address] [id number] [address] [place] [address], [place] [address] October, [facility] [address] [id number] [address] [place] [address], [place] [address] October, [facility] [address] [id number] [address] [place] [address], [place] [address] October, [facility] [address] [id number] [address] [place] [address], [place] [address] October, [facility] [address] [id number] [address] [place] [address], [place] [address] Sep, [facility] [address] [id number] [facility] [place] [address] Sep, [facility] [address] [id number] [address] [place] [address], [place] [address] Sep, [facility] [address] [id number] [facility] [place] [address] Sep, [facility] [address] [id number] [address] [place] [address], [place] [address] Sep, [facility] [address] [id number] [address] [place] [address], [place] [address] Sep, [facility] [address] [id number] [address] [place] [address], [place] [address] Aug, [facility] [address] [id number] [address] [place] [address], [place] [address] Aug, [facility] [address] [id number] [address] [place] [address], [place] [address] Aug, [facility] [address] [id number] [address] [place] [address], [place] [address] Aug, [facility] [address] [id number] [address] [place] [address], [place] [address] Aug, [facility] [address] [id number] [address] [place] [address], [place] [address] Aug, [facility] [address] [id number] [address] [place] [address], [place] [address] Jul, [facility] [address] [id number] [address] [place] [address], [place] [address] Jul, [facility] [address] [id number] [address] [place] [address], [place] [address] Jul, [facility] [address] [id number] [address] [place] [address], [place] [address] Jul, [facility] [address] [id number] [address] [place] [address], [place] [address] 13 Jul, 2013 [facility] [address] [id number] [address] [place] [address], [place] [address] Jul, [facility] [address] [id number] [address] [place] [address], [place] [address] Jul, [facility] [address] [id number] [address] [place] [address], [place] [address] Jul, [facility] [address] [id number] [address] [place] [address], [place] [address] Jul, [facility] [address] [id number] [address] [place] [address], [place] [address] Jul, [facility] [address] [id number] [address] [place] [address], [place] [address] Jun, [facility] [address] [id number] [address] [place] [address], [place] [address] Jun, [facility] [address] [id number] [address] [place] [address], [place] [address] Jun, [facility] [address] [id number] [address] [place] [address], [place] [address] Jun, [facility] [address] [id number] [address] [place] [address], [place] [address] Jun, [facility] [address] [id number] [address] [place] [address], [place] [address] Jun, [facility] [address] [id number] [address] [place] [address], [place] [address] Jun, [facility] [address] [id number] [address] [place] [address], [place] [address] Jun, [facility] [address] [id number] [address] [place] [address], [place] [address] May, [facility] [address] [id number] [address] [place] [address], [place] [address] May, [facility] [address] [id number] [address] [place] [address], [place] [address] May, [facility] [address] [id number] [address] [place] [address], [place] [address] May, [facility] [address] [id number] [address] [place] [address], [place] [address] May, [facility] [address] [id number] [address] [place] [address], [place] [address] May, [facility] [address] [id number] [address] [place] [address], [place] [address] May, [facility] [address] [id number] [address] [place] [address], [place] [address] May, [facility] [address] [id number] [address] [place] [address], [place] [address] Apr, [facility] [address] [id number] [address] [place] [address] Apr, [facility] [address] [id number] [address] [place] [address], [place] [address] Apr, [facility] [address] [id number] [address] [place] [address] Apr, [facility] [address] [id number] [address] [place] [address] Apr, [facility] [address] [id number] [address] [place] [address] Apr, [facility] [address] [id number] [address] [place] [address], [place] [address] Mar, [facility] [address] [id number] [address] [place] [address] Mar, [facility] [address] [id number] [address] [place] [address], [place] [address] Mar, [facility] [address] [id number] [address] [place] [address], [place] [address] Mar, [facility] [address] [id number] [address] [place] [address], [place] [address] Mar, [facility] [address] [id number] [address] [place] [address], [place] [address] Mar, [facility] [address] [id number] [address] [place] [address], [place] [address] Mar, [facility] [address] [id number] [address] [place] [address], [place] [address] 30 Feb, 2012 [facility] [address] [id number] [address] [place] [address], [place] [address] 30 Feb, 2013 [facility] [address] [id number] [address] [place] [address], [place] [address] 27 Feb, 2013 [facility] [address] [id number] [address] [place] [address], [place] [address] Feb, 2012 [facility] [address] [id number] [address] [place] [address], [place] [address] Feb, [facility] [address] [id number] [address] [place] [address], [place] [address] Feb, [facility] [address] [id number] [address] [place] [address], [place] [address] Jan, [facility] [address] [id number] [address] [place] [address], [place] [address] Jan, [facility] [address] [id number] [address] [place] [address], [place] [address] Jan, [facility] [address] [id number] [address] [place] [address], [place] [address] Jan, [facility] [address] [id number] [address] [place] [address], [place] [address] Jan, [facility] [address] [id number] [address] [place] [address], [place] [address] Jan, [facility] [address] [id number] [address] [place] [address], [place] [address] Jan, [facility] [address] [id number] [address] [place] [address], [place] [address] Jan, [facility] [address] [id number] [address] [place] [address], [place] [address] Jan, [facility] [address] [id number] [address] [place] [address], [place] [address] Dec, [facility] [address] [id number] [address] [place] [address], [place] [address] Dec, [facility] [address] [id number] [address] [place] [address], [place] [address] Dec, [facility] [address] [id number] [address] [place] [address], [place] [address] Dec, [facility] [address] [id number] [address] [place] [address], [place] [address] Dec, [facility] [address] [id number] [address] [place] [address], [place] [address] Dec, [facility] [address] [id number] [address] [place] [address], [place] [address] Dec, [facility] [address] [id number] [address] [place] [address], [place] [address] Dec, [facility] [address] [id number] [address] [place] [address], [place] [address] Dec, [facility] [address] [id number] [address] [place] [address], [place] [address] Dec, [facility] [address] [id number] [address] [place] [address], [place] [address] Dec, [facility] [address] [id number] [address] [place] [address], [place] [address] Dec, [facility] [address] [id number] [address] [place] [address], [place] [address] Dec, [facility] [address] [id number] [address] [place] [address], [place] [address] Nov, [facility] [address] [id number] [address] [place] [address], [place] [address] Nov, [facility] [address] [id number] [address] [place] [address], [place] [address] Nov, [facility] [address] [id number] [address] [place] [address], [place] [address] Nov, [facility] [address] [id number] [address] [place] [address], [place] [address] October, [facility] [address] [id number] [address] [place] [address], [place] [address] October, [facility] [address] [id number] [address] [place] [address], [place] [address] October, [facility] [address] [id number] [address] [place] [address], [place] [address] October, [facility] [address] [id number] [address] [place] [address], [place] [address] October, [facility] [address] [id number] [address] [place] [address], [place] [address] October, [facility] [address] [id number] [address] [place] [address], [place] [address] Sep, [facility] [address] [id number] [address] [place] [address], [place] [address] Sep, [facility] [address] [id number] [address] [place] [address], [place] [address] Sep, [facility] [address] [id number] [address] [place] [address], [place] [address] Sep, [facility] [address] [id number] [address] [place] [address], [place] [address] Sep, [facility] [address] [id number] [facility] [place] [address] 16 Sep, 2012 [facility] [address] [id number] [address] [place] [address], [place] [address] 12 Sep, 2012 [facility] [address] [id number] [address] [place] [address], [place] [address] Sep, [facility] [address] [id number] [address] [place] [address], [place] [address] Sep, [facility] [address] [id number] [address] [place] [address], [place] [address] Sep, [facility] [address] [id number] [address] [place] [address], [place] [address] Sep, [facility] [address] [id number] [address] [place] [address], [place] [address] Aug, [facility] [address] [id number] [address] [place] [address], [place] [address] 25 Aug, 2012 [facility] [address] [id number] [address] [place] [address], [place] [address] 25 Aug, 2012 [facility] [address] [id number] [address] [place] [address], [place] [address] 21 Aug, 2012 [facility] [address] [id number] [address] [place] [address], [place] [address] 19 Aug, 2012 [facility] [address] [id number] [address] [place] [address], [place] [address] 18 Aug, 2012 [facility] [address] [id number] [address] [place] [address], [place] [address] 17 Aug, 2012 [facility] [place] [address] [id number] [address] [place] [address], [place] [address] 15 Aug, 2012 [facility] [address] [id number] [address] [place] [address], [place] [address] 15 Aug, 2012 [facility] [address] [id number] [address] [place] [address], [place] [address] Aug, [facility] [address] [id number] [address] [place] [address], [place] [address] Aug, [facility] [address] [id number] [address] [place] [address], [place] [address] Aug, [facility] [address] [id number] [address] [place] [address], [place] [address] Jul, [facility] [address] [id number] [address] [place] [address], [place] [address] Jul, [facility] [address] [id number] [address] [place] [address], [place] [address] Jul, [facility] [address] [id number] [address] [place] [address], [place] [address] Jul, [facility] [address] [id number] [address] [place] [address], [place] [address] Jul, [facility] [address] [id number] [address] [place] [address], [place] [address] Jul, [facility] [address] [id number] [address] [place] [address], [place] [address] Jul, [facility] [address] [id number] [address] [place] [address], [place] [address] Jul, [facility] [address] [id number] [address] [place] [address], [place] [address] Jul, [facility] [address] [id number] [address] [place] [address], [place] [address] Jul, [facility] [address] [id number] [address] [place] [address], [place] [address] May, [facility] [address] [id number] [place] [id number] May, [facility] [address] [id number] [address] [place] [address], [place] [address] May, [facility] [address] [id number] [address] [place] [address] May, [facility] [address] [facility] [id number] [address] [place] [address] May, [facility] [address] [facility] [id number] [address] [place] [address] Apr, [facility] [address] [id number] [place] [id number] Apr, [facility] [address] [facility] [id number] [address] [place] [id number] Apr, [facility] [address] [facility] [id number] [address] [place] [id number] Mar, [facility] [address] [id number] [place] [id number] Mar, [facility] [address] [facility] [id number] [address] [place] [id number] Mar, [facility] [address] [id number] [place] [id number] Feb, [facility] [address] [facility] [id number] [address] [place] [id number] Feb, [facility] [address] [facility] [id number] [address] [place] [id number] Feb, [facility] [address] [id number] [place] [id number] Feb, [facility] [address] [id number] [place] [id number] Feb, [facility] [address] [id number] [place] [id number] Jan, [facility] [address] [id number] [address] [place] [address], [place] [address] Jan, [facility] [address] [id number] [place] [id number] Jan, [facility] [address] [id number] [place] [id number] Jan, [facility] [address] [id number] [place] [id number] Jan, [facility] [address] [facility] [id number] [address] [place] [address], [place] [address] Jan, [facility] [address] [facility] [id number] [address] [place] [address], [place] [address] Jan, [facility] [address] [facility] [id number] [address] [place] [address], [place] [address] Aug, [facility] [address] [id number] [place] [id number] Aug, [facility] [address] [facility] [id number] [address] [place] [address], [place] [address] Jul, [facility] [address] [facility] [id number] [address] [place] [address], [place] [address] Jul, [facility] [address] [facility] [id number] [address] [place] [address], [place] [address] Jul, [facility] [address] [id number] [place] [id number] Jul, [facility] [address] [facility] [id number] [address] [place] [address], [place] [address] Jul, [facility] [address] [id number] [place] [id number] Jul, [facility] [address] [facility] [id number] [address] [place] [address], [place] [address] Jul, [facility] [address] [id number] [place] [id number] Jul, [facility] [address] [id number] [place] [id number] Jul, [facility] [address] [id number] [place] [id number] Jul, [facility] [address] [facility] [id number] [address] [place] [address], [place] [address] May, [facility] [address] [id number] [address] [place] [id number] May, [facility] [address] [id number] [address] [place] [id number] May, [facility] [address] [id number] [address] [place] [id number] Apr, [facility] [address] [id number] [address] [place] [id number] Jan, [facility] [address] [id number] [address] [place] [id number] Jan, [facility] [address] [id number] [address] [place] [id number] Dec, [facility] [address] [id number] [address] [place] [id number] Dec, [facility] [address] [id number] [address] [place] [id number] May, [facility] [address] [id number] [address] [place] [id number] Mar, [facility] [address] [id number] [address] [place] [id number] Mar, [facility] [address] [id number] [address] [place] [id number] Jan, IMMUNIZATIONS No Known Immunizations SOCIAL HISTORY [...]
--- OUTSIDE RECORDS SUMMARY | 2020-01-28 12:24 | XMS REPORT ---
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 Name Role Phone CEZAR JIMI Unavailable PROBLEMS Type Condition ICD9-CM Code GOL79-RA Code Onset Dates Condition S tatus SNOMED Code Problem Chronic pain syndrome G89.4 Active 727531860 Problem Sore throat J02.9 Active 42449063 3 Problem Choriocarcinoma C58 Active 1881 40877 Problem emt 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 Z79.01 Active 632243235 Problem History of venous thromboembolism V12.51 Active 385964790 Problem Cellulitis of unspecified part of limb L03.119 Active 841010336 Problem Gastroesophageal reflux disease without esophagitis K21.9 Active 013017606 Problem History of pulmonary embolism Z86.711 Active 095487573 Problem Pseudotumor cerebri G93.2 Active 66526196 Problem History of DVT (deep vein thrombosis) Z86.718 Active 417934074 ALLERGIES No Information ENCOUNTERS Encounter Location Date Diagnosis [place] [id number] [facility] [id number] [address] [place] [address] Apr, [facility] (current) use of 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 Z79.01 [facility] [address] [facility] [id number] [address] [place] [address] Apr, [facility] 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.01 [facility] [address] [facility] [id number] [address] [place] [address] Apr, Cellulitis of unspecified pa rt of limb L03.119 ; Allergic contact dermatitis due to adhesives L23.1 and Chronic pain syndrome G89.4 [facility] [address] [facility] [id number] [address] [place] [address] Apr, [place] [address] [place] [id number] [address] [place] [address] Apr, emt 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.01 ; Cellulitis of unspecified part of limb L03.119 ; Chronic pain syndrome G89.4 and Anxiety F41.9 [facility] [address] [place] [id number] [address] [place] [address] 16 Apr, 2015 [facility] [address] [place] [id number] [place] [address] Apr, [place] [address] [place] [id number] [place] [address] Mar, [place] [address] [address] Mar, [place] [address] [address] Mar, Sore throat J02.9 ; Gastroes ophageal reflux disease without esophagitis K21.9 ; Pseudotumor cerebri G93.2 ; Chronic pain syndrome G89.4 ; Choriocarcinoma C58 ; History of pulmonary embolism Z86.711 ; History of DVT (deep vein thrombosis) Z86.718 ; Anxiety F41.9 and Tachycardia R00.0 [place] [address] [address] Feb, Anxiety 300.00 and Chronic p ain 338.29 [place] [address] [place] [id number] [address] [place] [address] Feb, [place] [address] [place] [id number] [address] [place] [address] Feb, [place] [address] [address] Jan, emt 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 therapy V58.61 and Dysuria 788.1 [place] [address] [place] [id number] [place] [address] Jan, Dysuria 788.1 [facility] [address] [place] [id number] [address] [place] [address] Jan, Anxiety 300.00 and Chronic p ain 338.29 [facility] [address] [place] [id number] [place] [address] Jan, [facility] [address] [address] Jan, [facility] [address] [address] Jan, [place] [address] [address] Dec, Weakness 780.79 [place] [address] [address] Dec, [facility] 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 therapy V58.61 [place] [address] [address] Dec, Palpitations 785.1 ; Tremor 781.0 ; Weakness 780.79 ; [facility] 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 therapy V58.61 and Yeast vaginitis 112.1 [place] [address] [place] [id number] [address] [place] [address] Dec, [place] [address] [address] Dec, Cervicalgia 723.1 ; Tachycar yoseph 785.0 ; Pseudotumor cerebri 348.2 and History of venous thromboembolism V12.51 [place] [address] [address] Nov, [place] [address] [address] Nov, [place] [address] [address] Nov, Tachycardia 785.0 ; Pseudotu mor cerebri 348.2 ; Anxiety 300.00 and History of venous thromboembolism V12.51 [facility] [address] [id number] [address] [place] [address] Nov, [facility] [address] [id number] [address] [place] [address] 18 Nov, 2014 [facility] [address] [id number] [address] [place] [address] Nov, [facility] [address] [id number] [address] [place] [address] Nov, [facility] [address] [facility] [id number] [address] [place] [address] Nov, [facility] [address] [facility] [id number] [address] [place] [address] Nov, [facility] [address] [facility] [id number] [address] [place] [address] Nov, [facility] [address] [facility] [id number] [address] [place] [address] October, [facility] [address] [facility] [id number] [address] [place] [address] October, [facility] [address] [place] [id number] [address] [place] [address] October, Pain in thoracic spine 724.1 and Tachycardia 785.0 [facility] [address] [id number] [address] [place] [address] October, [facility] [address] [id number] [address] [place] [address] October, [facility] [address] [facility] [id number] [address] [place] [address] 14 Sep, 2014 [facility] [address] [facility] [id number] [address] [place] [address] Sep, [facility] [address] [id number] [facility] [address] Aug, [facility] [address] [id number] [address] [place] [address], [place] [address] Aug, [facility] [address] [id number] [address] [place] [address], [place] [address] Aug, [facility] [address] [id number] [address] [place] [address], [place] [address] Aug, [facility] [address] [id number] [address] [place] [address], [place] [address] Aug, [facility] [address] [id number] [address] [place] [address], [place] [address] Aug, [facility] [address] [id number] [address] [place] [address], [place] [address] Aug, [facility] [address] [id number] [address] [place] [address], [place] [address] Aug, [facility] [address] [id number] [address] [place] [address], [place] [address] Aug, [facility] [address] [id number] [address] [place] [address], [place] [address] Aug, [facility] [address] [id number] [address] [place] [address], [place] [address] Aug, [facility] [address] [id number] [address] [place] [address], [place] [address] Aug, 2014 [facility] [address] [id number] [address] [place] [address], [place] [address] Jul, [facility] [address] [id number] [address] [place] [address], [place] [address] Jul, [facility] [address] [id number] [address] [place] [address], [place] [address] Jul, [facility] [address] [id number] [address] [place] [address], [place] [address] Jul, [facility] [address] [id number] [address] [place] [address], [place] [address] 23 Jul, 2014 [facility] [address] [id number] [address] [place] [address], [place] [address] 23 Jul, 2014 [facility] [address] [id number] [address] [place] [address], [place] [address] 23 Jul, 2014 [facility] [address] [id number] [address] [place] [address], [place] [address] 23 Jul, 2014 [facility] [address] [id number] [address] [place] [address], [place] [address] 20 Jul, 2014 [facility] [address] [id number] [address] [place] [address], [place] [address] 20 Jul, 2014 [facility] [address] [id number] [address] [place] [address], [place] [address] 19 Jul, 2014 [facility] [address] [id number] [address] [place] [address], [place] [address] 19 Jul, 2014 [facility] [address] [id number] [address] [place] [address], [place] [address] 17 Jul, 2014 [facility] [address] [id number] [address] [place] [address], [place] [address] 17 Jul, 2014 [facility] [address] [id number] [address] [place] [address], [place] [address] 16 Jul, 2014 [facility] [address] [id number] [address] [place] [address], [place] [address] 16 Jul, 2014 [facility] [address] [id number] [address] [place] [address], [place] [address] 16 Jul, 2014 [facility] [address] [id number] [address] [place] [address] 16 Jul, 2014 [facility] [address] [id number] [address] [place] [address] 13 Jul, 2014 [facility] [address] [id number] [address] [place] [address], [place] [address] Jul, [facility] [address] [id number] [address] [place] [address], [place] [address] Jul, [facility] [address] [id number] [address] [place] [address], [place] [address] Jul, 2014 [facility] [address] [id number] [address] [place] [address], [place] [address] Jul, 2014 [facility] [address] [id number] [address] [place] [address], [place] [address] Jul, [facility] [address] [id number] [address] [place] [address], [place] [address] Jul, [facility] [address] [id number] [address] [place] [address], [place] [address] Jul, [facility] [address] [id number] [address] [place] [address], [place] [address] Jul, [facility] [address] [id number] [address] [place] [address], [place] [address] Jul, [facility] [address] [id number] [address] [place] [address], [place] [address] Jul, [facility] [address] [id number] [address] [place] [address], [place] [address] Jul, [facility] [address] [id number] [address] [place] [address], [place] [address] Jun, [facility] [address] [id number] [address] [place] [address], [place] [address] Jun, [facility] [address] [id number] [address] [place] [address], [place] [address] Jun, [facility] [address] [id number] [address] [place] [address], [place] [address] Jun, [facility] [address] [id number] [address] [place] [address], [place] [address] Jun, [facility] [address] [id number] [address] [place] [address], [place] [address] Jun, [facility] [address] [id number] [address] [place] [address], [place] [address] Jun, [facility] [address] [id number] [address] [place] [address], [place] [address] Jun, [facility] [address] [id number] [address] [place] [address], [place] [address] Jun, [facility] [address] [id number] [address] [place] [address], [place] [address] Jun, [facility] [address] [id number] [address] [place] [address], [place] [address] Jun, [facility] [address] [id number] [address] [place] [address], [place] [address] Jun, [facility] [address] [id number] [address] [place] [address], [place] [address] Jun, [facility] [address] [id number] [address] [place] [address], [place] [address] Jun, [facility] [address] [id number] [address] [place] [address], [place] [address] Jun, [facility] [address] [id number] [address] [place] [address], [place] [address] Jun, [facility] [address] [id number] [address] [place] [address], [place] [address] Jun, [facility] [address] [id number] [address] [place] [address], [place] [address] Jun, [facility] [address] [id number] [address] [place] [address], [place] [address] Jun, [facility] [address] [id number] [address] [place] [address], [place] [address] Jun, [facility] [address] [id number] [address] [place] [address], [place] [address] May, [facility] [address] [id number] [address] [place] [address], [place] [address] May, [facility] [address] [id number] [address] [place] [address], [place] [address] May, [facility] [address] [id number] [address] [place] [address], [place] [address] May, [facility] [address] [id number] [address] [place] [address], [place] [address] May, [facility] [address] [id number] [address] [place] [address], [place] [address] May, [facility] [address] [id number] [address] [place] [address], [place] [address] May, [facility] [address] [id number] [address] [place] [address], [place] [address] May, [facility] [address] [id number] [address] [place] [address], [place] [address] May, [facility] [address] [id number] [address] [place] [address], [place] [address] May, [facility] [address] [id number] [address] [place] [address], [place] [address] May, [facility] [address] [id number] [address] [place] [address], [place] [address] 18 May, 2014 [facility] [address] [id number] [address] [place] [address], [place] [address] 18 May, 2014 [facility] [address] [id number] [address] [place] [address], [place] [address] 17 May, 2014 [facility] [address] [id number] [address] [place] [address], [place] [address] 16 May, 2014 [facility] [address] [id number] [address] [place] [address], [place] [address] 16 May, 2014 [facility] [address] [id number] [address] [place] [address], [place] [address] 15 May, 2014 [facility] [address] [id number] [address] [place] [address], [place] [address] 15 May, 2014 [facility] [address] [id number] [address] [place] [address], [place] [address] May, [facility] [address] [id number] [address] [place] [address], [place] [address] May, [facility] [address] [id number] [address] [place] [address], [place] [address] May, [facility] [address] [id number] [address] [place] [address], [place] [address] May, [facility] [address] [id number] [address] [place] [address], [place] [address] May, [facility] [address] [id number] [address] [place] [address], [place] [address] May, [facility] [address] [id number] [address] [place] [address], [place] [address] May, [facility] [address] [id number] [address] [place] [address], [place] [address] May, [facility] [address] [id number] [address] [place] [address], [place] [address] May, [facility] [address] [id number] [address] [place] [address], [place] [address] May, [facility] [address] [id number] [address] [place] [address], [place] [address] May, [facility] [address] [id number] [address] [place] [address], [place] [address] May, [facility] [address] [id number] [address] [place] [address], [place] [address] May, [facility] [address] [id number] [address] [place] [address], [place] [address] May, [facility] [address] [id number] [address] [place] [address], [place] [address] May, [facility] [address] [id number] [address] [place] [address], [place] [address] May, [facility] [address] [id number] [address] [place] [address], [place] [address] Apr, [facility] [address] [id number] [address] [place] [address], [place] [address] Apr, [facility] [address] [id number] [address] [place] [address], [place] [address] Apr, [facility] [address] [id number] [address] [place] [address], [place] [address] Apr, [facility] [address] [id number] [address] [place] [address], [place] [address] Apr, [facility] [address] [id number] [address] [place] [address], [place] [address] Apr, [facility] [address] [id number] [address] [place] [address], [place] [address] Apr, [facility] [address] [id number] [address] [place] [address], [place] [address] Apr, [facility] [address] [id number] [address] [place] [address], [place] [address] Apr, [facility] [address] [id number] [address] [place] [address], [place] [address] Apr, [facility] [address] [id number] [address] [place] [address], [place] [address] Mar, [facility] [address] [id number] [address] [place] [address], [place] [address] Mar, [facility] [address] [id number] [address] [place] [address] [address] Mar, [facility] [address] [id number] [address] [place] [address], [place] [address] 31 Mar, 2013 [facility] [address] [id number] [address] [place] [address], [place] [address] Mar, [facility] [address] [id number] [address] [place] [address], [place] [address] 30 Mar, 2014 [facility] [address] [id number] [address] [place] [address], [place] [address] Mar, [facility] [address] [id number] [address] [place] [address], [place] [address] Mar, [facility] [address] [id number] [address] [place] [address], [place] [address] Mar, [facility] [address] [id number] [address] [place] [address], [place] [address] Mar, [facility] [address] [id number] [address] [place] [address] Mar, [facility] [address] [id number] [address] [place] [address] Mar, [facility] [address] [id number] [address] [place] [address] Mar, [facility] [address] [id number] [address] [place] [address] Mar, 2013 [facility] [address] [id number] [address] [place] [address] Mar, 2013 [facility] [address] [id number] [address] [place] [address] Mar, [facility] [address] [id number] [address] [place] [address] Mar, [facility] [address] [id number] [address] [place] [address] Mar, 2013 [facility] [address] [id number] [address] [place] [address], [place] [address] 02 Mar, 2013 [facility] [address] [id number] [address] [place] [address], [place] [address] 02 Mar, 2013 [facility] [address] [id number] [address] [place] [address], [place] [address] 05 Sep, 2013 [facility] [address] [id number] [address] [place] [address], [place] [address] 05 Sep, 2013 [facility] [address] [id number] [address] [place] [address], [place] [address] 04 Sep, 2013 [facility] [address] [id number] [address] [place] [address], [place] [address] 04 Sep, 2013 [facility] [address] [id number] [address] [place] [address], [place] [address] 03 Feb, 2013 [facility] [address] [id number] [address] [place] [address], [place] [address] 03 Feb, 2013 [facility] [address] [id number] [address] [place] [address], [place] [address] 02 Feb, 2013 [facility] [address] [id number] [address] [place] [address], [place] [address] Feb, 2013 [facility] [address] [id number] [address] [place] [address], [place] [address] 02 Feb, 2013 [facility] [address] [id number] [address] [place] [address], [place] [address] Feb, 2013 [facility] [address] [id number] [address] [place] [address], [place] [address] Jan, [facility] [address] [id number] [address] [place] [address], [place] [address] Jan, [facility] [address] [id number] [address] [place] [address], [place] [address] Jan, [facility] [address] [id number] [address] [place] [address], [place] [address] Jan, [facility] [address] [id number] [facility] [address] Jan, [facility] [address] [id number] [address] [place] [address], [place] [address] Jan, [facility] [address] [id number] [address] [place] [address], [place] [address] Jan, [facility] [address] [id number] [address] [place] [address], [place] [address] Jan, [facility] [address] [id number] [address] [place] [address], [place] [address] Jan, [facility] [address] [id number] [address] [place] [address], [place] [address] Jan, [facility] [address] [id number] [address] [place] [address], [place] [address] Jan, [facility] [address] [id number] [address] [place] [address], [place] [address] Jan, [facility] [address] [id number] [address] [place] [address], [place] [address] Dec, [facility] [address] [id number] [address] [place] [address], [place] [address] Dec, [facility] [address] [id number] [address] [place] [address], [place] [address] Dec, [facility] [address] [id number] [address] [place] [address], [place] [address] Dec, [facility] [address] [id number] [address] [place] [address], [place] [address] Dec, [facility] [address] [id number] [address] [place] [address], [place] [address] Dec, [facility] [address] [id number] [address] [place] [address], [place] [address] Dec, [facility] [address] [id number] [address] [place] [address], [place] [address] Dec, [facility] [address] [id number] [facility] [place] [address] Dec, [facility] [address] [id number] [address] [place] [address], [place] [address] Dec, [facility] [address] [id number] [address] [place] [address], [place] [address] Dec, [facility] [address] [id number] [address] [place] [address], [place] [address] Dec, [facility] [address] [id number] [address] [place] [address], [place] [address] Nov, [facility] [address] [id number] [address] [place] [address], [place] [address] Nov, [facility] [address] [id number] [address] [place] [address], [place] [address] Nov, [facility] [address] [id number] [address] [place] [address], [place] [address] Nov, [facility] [address] [id number] [address] [place] [address], [place] [address] Nov, [facility] [address] [id number] [address] [place] [address], [place] [address] Nov, [facility] [address] [id number] [address] [place] [address], [place] [address] Nov, [facility] [address] [id number] [address] [place] [address], [place] [address] Nov, [facility] [address] [id number] [address] [place] [address], [place] [address] Nov, [facility] [address] [id number] [address] [place] [address], [place] [address] Nov, [facility] [address] [id number] [address] [place] [address], [place] [address] Nov, [facility] [address] [id number] [facility] [place] [address] Nov, [facility] [address] [id number] [address] [place] [address], [place] [address] Nov, [facility] [address] [id number] [address] [place] [address], [place] [address] Nov, [facility] [address] [id number] [address] [place] [address], [place] [address] October, [facility] [address] [id number] [address] [place] [address], [place] [address] October, [facility] [address] [id number] [address] [place] [address], [place] [address] October, [facility] [address] [id number] [address] [place] [address], [place] [address] October, [facility] [address] [id number] [address] [place] [address], [place] [address] October, [facility] [address] [id number] [address] [place] [address], [place] [address] October, [facility] [address] [id number] [address] [place] [address], [place] [address] October, [facility] [address] [id number] [address] [place] [address], [place] [address] October, [facility] [address] [id number] [address] [place] [address], [place] [address] October, [facility] [address] [id number] [address] [place] [address], [place] [address] October, [facility] [address] [id number] [address] [place] [address], [place] [address] October, [facility] [address] [id number] [address] [place] [address], [place] [address] October, [facility] [address] [id number] [address] [place] [address], [place] [address] Sep, [facility] [address] [id number] [facility] [address] Sep, [facility] [address] [id number] [address] [place] [address], [place] [address] Sep, [facility] [address] [id number] [facility] [address] Sep, [facility] [address] [id number] [address] [place] [address], [place] [address] Sep, [facility] [address] [id number] [address] [place] [address], [place] [address] Sep, [facility] [address] [id number] [address] [place] [address], [place] [address] Aug, [facility] [address] [id number] [address] [place] [address], [place] [address] Aug, [facility] [address] [id number] [address] [place] [address], [place] [address] Aug, [facility] [address] [id number] [address] [place] [address], [place] [address] Aug, [facility] [address] [id number] [address] [place] [address], [place] [address] Aug, [facility] [address] [id number] [address] [place] [address], [place] [address] Aug, [facility] [address] [id number] [address] [place] [address], [place] [address] Jul, [facility] [address] [id number] [address] [place] [address], [place] [address] Jul, [facility] [address] [id number] [address] [place] [address], [place] [address] Jul, [facility] [address] [id number] [address] [place] [address], [place] [address] Jul, [facility] [address] [id number] [address] [place] [address], [place] [address] 13 Jul, 2013 [facility] [address] [id number] [address] [place] [address], [place] [address] Jul, [facility] [address] [id number] [address] [place] [address], [place] [address] Jul, [facility] [address] [id number] [address] [place] [address], [place] [address] Jul, [facility] [address] [id number] [address] [place] [address], [place] [address] Jul, [facility] [address] [id number] [address] [place] [address], [place] [address] Jul, [facility] [address] [id number] [address] [place] [address], [place] [address] Jun, [facility] [address] [id number] [address] [place] [address], [place] [address] Jun, [facility] [address] [id number] [address] [place] [address], [place] [address] Jun, [facility] [address] [id number] [address] [place] [address], [place] [address] Jun, [facility] [address] [id number] [address] [place] [address], [place] [address] Jun, [facility] [address] [id number] [address] [place] [address], [place] [address] Jun, [facility] [address] [id number] [address] [place] [address], [place] [address] Jun, [facility] [address] [id number] [address] [place] [address], [place] [address] Jun, [facility] [address] [id number] [address] [place] [address], [place] [address] May, [facility] [address] [id number] [address] [place] [address], [place] [address] May, [facility] [address] [id number] [address] [place] [address], [place] [address] May, [facility] [address] [id number] [address] [place] [address], [place] [address] May, [facility] [address] [id number] [address] [place] [address], [place] [address] May, [facility] [address] [id number] [address] [place] [address], [place] [address] May, [facility] [address] [id number] [address] [place] [address], [place] [address] May, [facility] [address] [id number] [address] [place] [address], [place] [address] May, [facility] [address] [id number] [address] [place] [address], [place] [address] Apr, [facility] [address] [id number] [address] [place] [address] Apr, [facility] [address] [id number] [address] [place] [address], [place] [address] Apr, [facility] [address] [id number] [address] [place] [address] Apr, [facility] [address] [id number] [address] [place] [address] Apr, [facility] [address] [id number] [address] [place] [address] Apr, [facility] [address] [id number] [address] [place] [address], [place] [address] Mar, [facility] [address] [id number] [address] [place] [address] Mar, [facility] [address] [id number] [address] [place] [address], [place] [address] Mar, [facility] [address] [id number] [address] [place] [address], [place] [address] Mar, [facility] [address] [id number] [address] [place] [address], [place] [address] Mar, [facility] [address] [id number] [address] [place] [address], [place] [address] Mar, [facility] [address] [id number] [address] [place] [address], [place] [address] Mar, [facility] [address] [id number] [address] [place] [address], [place] [address] 30 Feb, 2012 [facility] [address] [id number] [address] [place] [address], [place] [address] 30 Feb, 2013 [facility] [address] [id number] [address] [place] [address], [place] [address] 27 Feb, 2013 [facility] [address] [id number] [address] [place] [address], [place] [address] Feb, 2012 [facility] [address] [id number] [address] [place] [address], [place] [address] Feb, [facility] [address] [id number] [address] [place] [address], [place] [address] Feb, [facility] [address] [id number] [address] [place] [address], [place] [address] Jan, [facility] [address] [id number] [address] [place] [address], [place] [address] Jan, [facility] [address] [id number] [address] [place] [address], [place] [address] Jan, [facility] [address] [id number] [address] [place] [address], [place] [address] Jan, [facility] [address] [id number] [address] [place] [address], [place] [address] Jan, [facility] [address] [id number] [address] [place] [address], [place] [address] Jan, [facility] [address] [id number] [address] [place] [address], [place] [address] Jan, [facility] [address] [id number] [address] [place] [address], [place] [address] Jan, [facility] [address] [id number] [address] [place] [address], [place] [address] Jan, [facility] [address] [id number] [address] [place] [address], [place] [address] Dec, [facility] [address] [id number] [address] [place] [address], [place] [address] Dec, [facility] [address] [id number] [address] [place] [address], [place] [address] Dec, [facility] [address] [id number] [address] [place] [address], [place] [address] Dec, [facility] [address] [id number] [address] [place] [address], [place] [address] Dec, [facility] [address] [id number] [address] [place] [address], [place] [address] Dec, [facility] [address] [id number] [address] [place] [address], [place] [address] Dec, [facility] [address] [id number] [address] [place] [address], [place] [address] Dec, [facility] [address] [id number] [address] [place] [address], [place] [address] Dec, [facility] [address] [id number] [address] [place] [address], [place] [address] Dec, [facility] [address] [id number] [address] [place] [address], [place] [address] Dec, [facility] [address] [id number] [address] [place] [address], [place] [address] Dec, [facility] [address] [id number] [address] [place] [address], [place] [address] Dec, [facility] [address] [id number] [address] [place] [address], [place] [address] Nov, [facility] [address] [id number] [address] [place] [address], [place] [address] Nov, [facility] [address] [id number] [address] [place] [address], [place] [address] Nov, [facility] [address] [id number] [address] [place] [address], [place] [address] Nov, [facility] [address] [id number] [address] [place] [address], [place] [address] October, [facility] [address] [id number] [address] [place] [address], [place] [address] October, [facility] [address] [id number] [address] [place] [address], [place] [address] October, [facility] [address] [id number] [address] [place] [address], [place] [address] October, [facility] [address] [id number] [address] [place] [address], [place] [address] October, [facility] [address] [id number] [address] [place] [address], [place] [address] October, [facility] [address] [id number] [address] [place] [address], [place] [address] Sep, [facility] [address] [id number] [address] [place] [address], [place] [address] Sep, [facility] [address] [id number] [address] [place] [address], [place] [address] Sep, [facility] [address] [id number] [address] [place] [address], [place] [address] Sep, [facility] [address] [id number] [address] [place] [address], [place] [address] Sep, [facility] [address] [id number] [facility] [place] [address] 16 Sep, 2012 [facility] [address] [id number] [address] [place] [address], [place] [address] 12 Sep, 2012 [facility] [address] [id number] [address] [place] [address], [place] [address] Sep, [facility] [address] [id number] [address] [place] [address], [place] [address] Sep, [facility] [address] [id number] [address] [place] [address], [place] [address] Sep, [facility] [address] [id number] [address] [place] [address], [place] [address] Sep, [facility] [address] [id number] [address] [place] [address], [place] [address] Aug, [facility] [address] [id number] [address] [place] [address], [place] [address] 25 Aug, 2012 [facility] [address] [id number] [address] [place] [address], [place] [address] 25 Aug, 2012 [facility] [address] [id number] [address] [place] [address], [place] [address] 21 Aug, 2012 [facility] [address] [id number] [address] [place] [address], [place] [address] 19 Aug, 2012 [facility] [address] [id number] [address] [place] [address], [place] [address] 18 Aug, 2012 [facility] [address] [id number] [address] [place] [address], [place] [address] 17 Aug, 2012 [facility] [address] [id number] [address] [place] [address], [place] [address] 15 Aug, 2012 [facility] [address] [id number] [address] [place] [address], [place] [address] 15 Aug, 2012 [facility] [address] [id number] [address] [place] [address], [place] [address] Aug, [facility] [address] [id number] [address] [place] [address], [place] [address] Aug, [facility] [address] [id number] [address] [place] [address], [place] [address] Aug, [facility] [address] [id number] [address] [place] [address], [place] [address] Jul, [facility] [address] [id number] [address] [place] [address], [place] [address] Jul, [facility] [address] [id number] [address] [place] [address], [place] [address] Jul, [facility] [address] [id number] [address] [place] [address], [place] [address] Jul, [facility] [address] [id number] [address] [place] [address], [place] [address] Jul, [facility] [address] [id number] [address] [place] [address], [place] [address] Jul, [facility] [address] [id number] [address] [place] [address], [place] [address] Jul, [facility] [address] [id number] [address] [place] [address], [place] [address] Jul, [facility] [address] [id number] [address] [place] [address], [place] [address] Jul, [facility] [address] [id number] [address] [place] [address], [place] [address] Jul, [facility] [address] [id number] [address] [place] [address], [place] [address] May, [facility] [address] [id number] [place] [id number] May, [facility] [address] [id number] [address] [place] [address], [place] [address] May, [facility] [address] [id number] [address] [place] [address] May, [facility] [address] [facility] [id number] [address] [place] [address] May, [facility] [address] [facility] [id number] [address] [place] [address] Apr, [facility] [address] [id number] [place] [id number] Apr, [facility] [address] [facility] [id number] [address] [place] [address] Apr, [facility] [address] [facility] [id number] [address] [place] [address] Mar, [facility] [address] [id number] [place] [id number] Mar, [facility] [address] [facility] [id number] [address] [place] [address] Mar, [facility] [address] [id number] [place] [id number] Feb, [facility] [address] [facility] [id number] [address] [place] [address] Feb, [facility] [address] [facility] [id number] [address] [place] [address] Feb, [facility] [address] [id number] [place] [id number] Feb, [facility] [address] [id number] [place] [id number] Feb, [facility] [address] [id number] [place] [id number] Jan, [facility] [address] [id number] [address] [place] [address], [place] [address] Jan, [facility] [address] [id number] [place] [id number] Jan, [facility] [address] [id number] [place] [id number] Jan, [facility] [address] [id number] [place] [id number] Jan, [facility] [address] [facility] [id number] [address] [place] [address], [place] [address] Jan, [facility] [address] [facility] [id number] [address] [place] [address], [place] [address] Jan, [facility] [address] [facility] [id number] [address] [place] [address], [place] [address] Aug, [facility] [address] [id number] [place] [id number] Aug, [facility] [address] [facility] [id number] [address] [place] [address], [place] [address] Jul, [facility] [address] [facility] [id number] [address] [place] [address], [place] [address] Jul, [facility] [address] [facility] [id number] [address] [place] [address], [place] [address] Jul, [facility] [address] [id number] [place] [id number] Jul, [facility] [address] [facility] [id number] [address] [place] [address], [place] [address] Jul, [facility] [address] [id number] [place] [id number] Jul, [facility] [address] [facility] [id number] [address] [place] [address], [place] [address] Jul, [facility] [address] [id number] [place] [id number] Jul, [facility] [address] [id number] [place] [id number] Jul, [facility] [address] [id number] [place] [id number] Jul, [facility] [address] [facility] [id number] [address] [place] [address], [place] [address] May, [facility] [address] [id number] [address] [place] [address] May, [facility] [address] [id number] [address] [place] [address] May, [facility] [address] [id number] [address] [place] [address] Apr, [facility] [address] [id number] [address] [place] [address] Jan, [facility] [address] [id number] [address] [place] [address] Jan, [facility] [address] [id number] [address] [place] [address] Dec, [facility] [address] [id number] [address] [place] [address] Dec, [facility] [address] [id number] [address] [place] [address] May, [facility] [address] [id number] [address] [place] [address] Mar, [facility] [address] [id number] [address] [place] [address] Mar, [facility] [address] [id number] [address] [place] [phone] Jan, IMMUNIZATIONS No Known Immunizations SOCIAL HISTORY Never Assessed REASON FOR VISIT PLAN OF CARE VITAL SIGNS MEDICATIONS Unknown Medications RESULTS No Results PROCEDURES Procedure Date Ordered Result Body Site PROTHROMBIN TIME Aug 08, 2014 INSTRUCTIONS MEDICATIONS ADMINISTERED No Known Medications [...]
--- OUTSIDE RECORDS SUMMARY | 2020-01-28 12:24 | XMS REPORT ---
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 Active 282125155 Problem History of venous thromboembolism V12.51 Active 286302917 Problem Cellulitis of unspecified part of limb L03.119 Active 958568904 Problem Gastroesophageal reflux disease without esophagitis K21.9 Active 330023428 Problem History of pulmonary embolism Z86.711 Active 100659859 Problem Pseudotumor cerebri G93.2 Active 96643875 Problem History of DVT (deep vein thrombosis) Z86.718 Active 701580732 ALLERGIES No Information ENCOUNTERS Encounter Location Date Diagnosis [place] [id number] [facility] [id number] [address] [place] [address] Apr, [facility] (current) use of 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 Z79.01 [facility] [address] [facility] [id number] [address] [place] [id number] Apr, [facility] 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.01 [facility] [address] [facility] [id number] [address] [place] [address] Apr, Cellulitis of unspecified pa rt of limb L03.119 ; Allergic contact dermatitis due to adhesives L23.1 and Chronic pain syndrome G89.4 [facility] [address] [facility] [id number] [address] [place] [address] Apr, [place] [address] [place] [id number] [address] [place] [address] Apr, 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 ; Cellulitis of unspecified part of limb L03.119 ; Chronic pain syndrome G89.4 and Anxiety F41.9 [facility] [address] [place] [id number] [address] [place] [address] 16 Apr, 2015 [facility] [address] [place] [id number] [place] [address] Apr, [place] [address] [place] [id number] [place] [address] Mar, [place] [address] [address] Mar, [place] [address] [address] Mar, Sore throat J02.9 ; Gastroes ophageal reflux disease without esophagitis K21.9 ; Pseudotumor cerebri G93.2 ; Chronic pain syndrome G89.4 ; Choriocarcinoma C58 ; History of pulmonary embolism Z86.711 ; History of DVT (deep vein thrombosis) Z86.718 ; Anxiety F41.9 and Tachycardia R00.0 [place] [address] [address] Feb, Anxiety 300.00 and Chronic p ain 338.29 [place] [address] [place] [id number] [address] [place] [id number] Feb, [place] [address] [place] [id number] [address] [place] [address] Feb, [place] [address] [address] Jan, 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 V58.61 and Dysuria 788.1 [place] [address] [place] [id number] [place] [address] Jan, Dysuria 788.1 [facility] [address] [place] [id number] [address] [place] [address] Jan, Anxiety 300.00 and Chronic p ain 338.29 [facility] [address] [place] [id number] [place] [address] Jan, [facility] [address] [address] Jan, [facility] [address] [address] Jan, [place] [address] [address] Dec, Weakness 780.79 [place] [address] [address] Dec, [facility] 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 therapy V58.61 [place] [address] [address] Dec, Palpitations 785.1 ; Tremor 781.0 ; Weakness 780.79 ; [facility] 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 therapy V58.61 and Yeast vaginitis 112.1 [place] [address] [place] [id number] [address] [place] [address] Dec, [place] [address] [address] Dec, Cervicalgia 723.1 ; Tachycar yoseph 785.0 ; Pseudotumor cerebri 348.2 and History of venous thromboembolism V12.51 [place] [address] [address] Nov, [place] [address] [address] Nov, [place] [address] [address] Nov, Tachycardia 785.0 ; Pseudotu mor cerebri 348.2 ; Anxiety 300.00 and History of venous thromboembolism V12.51 [facility] [address] [id number] [address] [place] [address] Nov, [facility] [address] [id number] [address] [place] [address] 18 Nov, 2014 [facility] [address] [id number] [address] [place] [phone] Nov, [facility] [address] [id number] [address] [place] [id number] Nov, [facility] [address] [facility] [id number] [address] [place] [address] Nov, [facility] [address] [facility] [id number] [address] [place] [address] Nov, [facility] [address] [facility] [id number] [address] [place] [address] Nov, [facility] [address] [facility] [id number] [address] [place] [address] October, [facility] [address] [facility] [id number] [address] [place] [address] October, [facility] [address] [place] [id number] [address] [place] [address] October, Pain in thoracic spine 724.1 and Tachycardia 785.0 [facility] [address] [id number] [address] [place] [address] October, [facility] [address] [id number] [address] [place] [id number] October, [facility] [address] [facility] [id number] [address] [place] [id number] 14 Sep, 2014 [facility] [address] [facility] [id number] [address] [place] [address] Sep, [facility] [address] [id number] [facility] [place] [address] Aug, [facility] [address] [id number] [address] [place] [address], [place] [address] Aug, [facility] [address] [id number] [address] [place] [address], [place] [address] Aug, [facility] [address] [id number] [address] [place] [address], [place] [address] Aug, [facility] [address] [id number] [address] [place] [address], [place] [address] Aug, [facility] [address] [id number] [address] [place] [address], [place] [address] Aug, [facility] [address] [id number] [address] [place] [address], [place] [address] Aug, [facility] [address] [id number] [address] [place] [address], [place] [address] Aug, [facility] [address] [id number] [address] [place] [address], [place] [address] Aug, [facility] [address] [id number] [address] [place] [address], [place] [address] Aug, [facility] [address] [id number] [address] [place] [address], [place] [address] Aug, [facility] [address] [id number] [address] [place] [address], [place] [address] Aug, 2014 [facility] [address] [id number] [address] [place] [address], [place] [address] Jul, [facility] [address] [id number] [address] [place] [address], [place] [address] Jul, [facility] [address] [id number] [address] [place] [address], [place] [address] Jul, [facility] [address] [id number] [address] [place] [address], [place] [address] Jul, [facility] [address] [id number] [address] [place] [address], [place] [address] 23 Jul, 2014 [facility] [address] [id number] [address] [place] [address], [place] [address] 23 Jul, 2014 [facility] [address] [id number] [address] [place] [address], [place] [address] 23 Jul, 2014 [facility] [address] [id number] [address] [place] [address], [place] [address] 23 Jul, 2014 [facility] [address] [id number] [address] [place] [address], [place] [address] 20 Jul, 2014 [facility] [address] [id number] [address] [place] [address], [place] [address] 20 Jul, 2014 [facility] [address] [id number] [address] [place] [address], [place] [address] 19 Jul, 2014 [facility] [address] [id number] [address] [place] [address], [place] [address] 19 Jul, 2014 [facility] [address] [id number] [address] [place] [address], [place] [address] 17 Jul, 2014 [facility] [address] [id number] [address] [place] [address], [place] [address] 17 Jul, 2014 [facility] [address] [id number] [address] [place] [address], [place] [address] 16 Jul, 2014 [facility] [address] [id number] [address] [place] [address], [place] [address] 16 Jul, 2014 [facility] [address] [id number] [address] [place] [address], [place] [address] 16 Jul, 2014 [facility] [address] [id number] [address] [place] [address] 16 Jul, 2014 [facility] [address] [id number] [address] [place] [id number] 13 Jul, 2014 [facility] [address] [id number] [address] [place] [address], [place] [address] Jul, [facility] [address] [id number] [address] [place] [address], [place] [address] Jul, [facility] [address] [id number] [address] [place] [address], [place] [address] Jul, 2014 [facility] [address] [id number] [address] [place] [address], [place] [address] Jul, 2014 [facility] [address] [id number] [address] [place] [address], [place] [address] Jul, [facility] [address] [id number] [address] [place] [address], [place] [address] Jul, [facility] [address] [id number] [address] [place] [address], [place] [address] Jul, [facility] [address] [id number] [address] [place] [address], [place] [address] Jul, [facility] [address] [id number] [address] [place] [address], [place] [address] Jul, [facility] [address] [id number] [address] [place] [address], [place] [address] Jul, [facility] [address] [id number] [address] [place] [address], [place] [address] Jul, [facility] [address] [id number] [address] [place] [address], [place] [address] Jun, [facility] [address] [id number] [address] [place] [address], [place] [address] Jun, [facility] [address] [id number] [address] [place] [address], [place] [address] Jun, [facility] [address] [id number] [address] [place] [address], [place] [address] Jun, [facility] [address] [id number] [address] [place] [address], [place] [address] Jun, [facility] [address] [id number] [address] [place] [address], [place] [address] Jun, [facility] [address] [id number] [address] [place] [address], [place] [address] Jun, [facility] [address] [id number] [address] [place] [address], [place] [address] Jun, [facility] [address] [id number] [address] [place] [address], [place] [address] Jun, [facility] [address] [id number] [address] [place] [address], [place] [address] Jun, [facility] [address] [id number] [address] [place] [address], [place] [address] Jun, [facility] [address] [id number] [address] [place] [address], [place] [address] Jun, [facility] [address] [id number] [address] [place] [address], [place] [address] Jun, [facility] [address] [id number] [address] [place] [address], [place] [address] Jun, [facility] [address] [id number] [address] [place] [address], [place] [address] Jun, [facility] [address] [id number] [address] [place] [address], [place] [address] Jun, [facility] [address] [id number] [address] [place] [address], [place] [address] Jun, [facility] [address] [id number] [address] [place] [address], [place] [address] Jun, [facility] [address] [id number] [address] [place] [address], [place] [address] Jun, [facility] [address] [id number] [address] [place] [address], [place] [address] Jun, [facility] [address] [id number] [address] [place] [address], [place] [address] May, [facility] [address] [id number] [address] [place] [address], [place] [address] May, [facility] [address] [id number] [address] [place] [address], [place] [address] May, [facility] [address] [id number] [address] [place] [address], [place] [address] May, [facility] [address] [id number] [address] [place] [address], [place] [address] May, [facility] [address] [id number] [address] [place] [address], [place] [address] May, [facility] [address] [id number] [address] [place] [address], [place] [address] May, [facility] [address] [id number] [address] [place] [address], [place] [address] May, [facility] [address] [id number] [address] [place] [address], [place] [address] May, [facility] [address] [id number] [address] [place] [address], [place] [address] May, [facility] [address] [id number] [address] [place] [address], [place] [address] May, [facility] [address] [id number] [address] [place] [address], [place] [address] 18 May, 2014 [facility] [address] [id number] [address] [place] [address], [place] [address] 18 May, 2014 [facility] [address] [id number] [address] [place] [address], [place] [address] 17 May, 2014 [facility] [address] [id number] [address] [place] [address], [place] [address] 16 May, 2014 [facility] [address] [id number] [address] [place] [address], [place] [address] 16 May, 2014 [facility] [address] [id number] [address] [place] [address], [place] [address] 15 May, 2014 [facility] [address] [id number] [address] [place] [address], [place] [address] 15 May, 2014 [facility] [address] [id number] [address] [place] [address], [place] [address] May, [facility] [address] [id number] [address] [place] [address], [place] [address] May, [facility] [address] [id number] [address] [place] [address], [place] [address] May, [facility] [address] [id number] [address] [place] [address], [place] [address] May, [facility] [address] [id number] [address] [place] [address], [place] [address] May, [facility] [address] [id number] [address] [place] [address], [place] [address] May, [facility] [address] [id number] [address] [place] [address], [place] [address] May, [facility] [address] [id number] [address] [place] [address], [place] [address] May, [facility] [address] [id number] [address] [place] [address], [place] [address] May, [facility] [address] [id number] [address] [place] [address], [place] [address] May, [facility] [address] [id number] [address] [place] [address], [place] [address] May, [facility] [address] [id number] [address] [place] [address], [place] [address] May, [facility] [address] [id number] [address] [place] [address], [place] [address] May, [facility] [address] [id number] [address] [place] [address], [place] [address] May, [facility] [address] [id number] [address] [place] [address], [place] [address] May, [facility] [address] [id number] [address] [place] [address], [place] [address] May, [facility] [address] [id number] [address] [place] [address], [place] [address] Apr, [facility] [address] [id number] [address] [place] [address], [place] [address] Apr, [facility] [address] [id number] [address] [place] [address], [place] [address] Apr, [facility] [address] [id number] [address] [place] [address], [place] [address] Apr, [facility] [address] [id number] [address] [place] [address], [place] [address] Apr, [facility] [address] [id number] [address] [place] [address], [place] [address] Apr, [facility] [address] [id number] [address] [place] [address], [place] [address] Apr, [facility] [address] [id number] [address] [place] [address], [place] [address] Apr, [facility] [address] [id number] [address] [place] [address], [place] [address] Apr, [facility] [address] [id number] [address] [place] [address], [place] [address] Apr, [facility] [address] [id number] [address] [place] [address], [place] [address] Mar, [facility] [address] [id number] [address] [place] [address], [place] [address] Mar, [facility] [address] [id number] [address] [place] [address] [address] Mar, [facility] [address] [id number] [address] [place] [address], [place] [address] 31 Mar, 2013 [facility] [address] [id number] [address] [place] [address], [place] [address] Mar, [facility] [address] [id number] [address] [place] [address], [place] [address] 30 Mar, 2014 [facility] [address] [id number] [address] [place] [address], [place] [address] Mar, [facility] [address] [id number] [address] [place] [address], [place] [address] Mar, [facility] [address] [id number] [address] [place] [address], [place] [address] Mar, [facility] [address] [id number] [address] [place] [address], [place] [address] Mar, [facility] [address] [id number] [address] [place] [id number] Mar, [facility] [address] [id number] [address] [place] [id number] Mar, [facility] [address] [id number] [address] [place] [id number] Mar, [facility] [address] [id number] [address] [place] [id number] Mar, 2013 [facility] [address] [id number] [address] [place] [id number] Mar, 2013 [facility] [address] [id number] [address] [place] [id number] Mar, [facility] [address] [id number] [address] [place] [id number] Mar, [facility] [address] [id number] [address] [place] [id number] Mar, 2013 [facility] [address] [id number] [address] [place] [address], [place] [address] 02 Mar, 2013 [facility] [address] [id number] [address] [place] [address], [place] [address] 02 Mar, 2013 [facility] [address] [id number] [address] [place] [address], [place] [address] 05 Sep, 2013 [facility] [address] [id number] [address] [place] [address], [place] [address] 05 Sep, 2013 [facility] [address] [id number] [address] [place] [address], [place] [address] 04 Sep, 2013 [facility] [address] [id number] [address] [place] [address], [place] [address] 04 Sep, 2013 [facility] [address] [id number] [address] [place] [address], [place] [address] 03 Feb, 2013 [facility] [address] [id number] [address] [place] [address], [place] [address] 03 Feb, 2013 [facility] [address] [id number] [address] [place] [address], [place] [address] 02 Feb, 2013 [facility] [address] [id number] [address] [place] [address], [place] [address] Feb, 2013 [facility] [address] [id number] [address] [place] [address], [place] [address] 02 Feb, 2013 [facility] [address] [id number] [address] [place] [address], [place] [address] Feb, 2013 [facility] [address] [id number] [address] [place] [address], [place] [address] Jan, [facility] [address] [id number] [address] [place] [address], [place] [address] Jan, [facility] [address] [id number] [address] [place] [address], [place] [address] Jan, [facility] [address] [id number] [address] [place] [address], [place] [address] Jan, [facility] [address] [id number] [facility] [place] [address] Jan, [facility] [address] [id number] [address] [place] [address], [place] [address] Jan, [facility] [address] [id number] [address] [place] [address], [place] [address] Jan, [facility] [address] [id number] [address] [place] [address], [place] [address] Jan, [facility] [address] [id number] [address] [place] [address], [place] [address] Jan, [facility] [address] [id number] [address] [place] [address], [place] [address] Jan, [facility] [address] [id number] [address] [place] [address], [place] [address] Jan, [facility] [address] [id number] [address] [place] [address], [place] [address] Jan, [facility] [address] [id number] [address] [place] [address], [place] [address] Dec, [facility] [address] [id number] [address] [place] [address], [place] [address] Dec, [facility] [address] [id number] [address] [place] [address], [place] [address] Dec, [facility] [address] [id number] [address] [place] [address], [place] [address] Dec, [facility] [address] [id number] [address] [place] [address], [place] [address] Dec, [facility] [address] [id number] [address] [place] [address], [place] [address] Dec, [facility] [address] [id number] [address] [place] [address], [place] [address] Dec, [facility] [address] [id number] [address] [place] [address], [place] [address] Dec, [facility] [address] [id number] [facility] [place] [address] Dec, [facility] [address] [id number] [address] [place] [address], [place] [address] Dec, [facility] [address] [id number] [address] [place] [address], [place] [address] Dec, [facility] [address] [id number] [address] [place] [address], [place] [address] Dec, [facility] [address] [id number] [address] [place], [place] [address], [place] [address] Nov, [facility] [address] [id number] [address] [place] [address], [place] [address] Nov, [facility] [address] [id number] [address] [place] [address], [place] [address] Nov, [facility] [address] [id number] [address] [place] [address], [place] [address] Nov, [facility] [address] [id number] [address] [place] [address], [place] [address] Nov, [facility] [address] [id number] [address] [place] [address], [place] [address] Nov, [facility] [address] [id number] [address] [place] [address], [place] [address] Nov, [facility] [address] [id number] [address] [place] [address], [place] [address] Nov, [facility] [address] [id number] [address] [place] [address], [place] [address] Nov, [facility] [address] [id number] [address] [place] [address], [place] [address] Nov, [facility] [address] [id number] [address] [place] [address], [place] [address] Nov, [facility] [address] [id number] [facility] [place] [address] Nov, [facility] [address] [id number] [address] [place] [address], [place] [address] Nov, [facility] [address] [id number] [address] [place] [address], [place] [address] Nov, [facility] [address] [id number] [address] [place] [address], [place] [address] October, [facility] [address] [id number] [address] [place] [address], [place] [address] October, [facility] [address] [id number] [address] [place] [address], [place] [address] October, [facility] [address] [id number] [address] [place] [address], [place] [address] October, [facility] [address] [id number] [address] [place] [address], [place] [address] October, [facility] [address] [id number] [address] [place] [address], [place] [address] October, [facility] [address] [id number] [address] [place] [address], [place] [address] October, [facility] [address] [id number] [address] [place] [address], [place] [address] October, [facility] [address] [id number] [address] [place] [address], [place] [address] October, [facility] [address] [id number] [address] [place] [address], [place] [address] October, [facility] [address] [id number] [address] [place] [address], [place] [address] October, [facility] [address] [id number] [address] [place] [address], [place] [address] October, [facility] [address] [id number] [address] [place] [address], [place] [address] Sep, [facility] [address] [id number] [facility] [place] [address] Sep, [facility] [address] [id number] [address] [place] [address], [place] [address] Sep, [facility] [address] [id number] [facility] [place] [address] Sep, [facility] [address] [id number] [address] [place] [address], [place] [address] Sep, [facility] [address] [id number] [address] [place] [address], [place] [address] Sep, [facility] [address] [id number] [address] [place] [address], [place] [address] Aug, [facility] [address] [id number] [address] [place] [address], [place] [address] Aug, [facility] [address] [id number] [address] [place] [address], [place] [address] Aug, [facility] [address] [id number] [address] [place] [address], [place] [address] Aug, [facility] [address] [id number] [address] [place] [address], [place] [address] Aug, [facility] [address] [id number] [address] [place] [address], [place] [address] Aug, [facility] [address] [id number] [address] [place] [address], [place] [address] Jul, [facility] [address] [id number] [address] [place] [address], [place] [address] Jul, [facility] [address] [id number] [address] [place] [address], [place] [address] Jul, [facility] [address] [id number] [address] [place] [address], [place] [address] Jul, [facility] [address] [id number] [address] [place] [address], [place] [address] 13 Jul, 2013 [facility] [address] [id number] [address] [place] [address], [place] [address] Jul, [facility] [address] [id number] [address] [place] [address], [place] [address] Jul, [facility] [address] [id number] [address] [place] [address], [place] [address] Jul, [facility] [address] [id number] [address] [place] [address], [place] [address] Jul, [facility] [address] [id number] [address] [place] [address], [place] [address] Jul, [facility] [address] [id number] [address] [place] [address], [place] [address] Jun, [facility] [address] [id number] [address] [place] [address], [place] [address] Jun, [facility] [address] [id number] [address] [place] [address], [place] [address] Jun, [facility] [address] [id number] [address] [place] [address], [place] [address] Jun, [facility] [address] [id number] [address] [place] [address], [place] [address] Jun, [facility] [address] [id number] [address] [place] [address], [place] [address] Jun, [facility] [address] [id number] [address] [place] [address], [place] [address] Jun, [facility] [address] [id number] [address] [place] [address], [place] [address] Jun, [facility] [address] [id number] [address] [place] [address], [place] [address] May, [facility] [address] [id number] [address] [place] [address], [place] [address] May, [facility] [address] [id number] [address] [place] [address], [place] [address] May, [facility] [address] [id number] [address] [place] [address], [place] [address] May, [facility] [address] [id number] [address] [place] [address], [place] [address] May, [facility] [address] [id number] [address] [place] [address], [place] [address] May, [facility] [address] [id number] [address] [place] [address], [place] [address] May, [facility] [address] [id number] [address] [place] [address], [place] [address] May, [facility] [address] [id number] [address] [place] [address], [place] [address] Apr, [facility] [address] [id number] [address] [place] [id number] Apr, [facility] [address] [id number] [address] [place] [address], [place] [address] Apr, [facility] [address] [id number] [address] [place] [id number] Apr, [facility] [address] [id number] [address] [place] [address] Apr, [facility] [address] [id number] [address] [place] [id number] Apr, [facility] [address] [id number] [address] [place] [address], [place] [address] Mar, [facility] [address] [id number] [address] [place] [id number] Mar, [facility] [address] [id number] [address] [place] [address], [place] [address] Mar, [facility] [address] [id number] [address] [place] [address], [place] [address] Mar, [facility] [address] [id number] [address] [place] [address], [place] [address] Mar, [facility] [address] [id number] [address] [place] [address], [place] [address] Mar, [facility] [address] [id number] [address] [place] [address], [place] [address] Mar, [facility] [address] [id number] [address] [place] [address], [place] [address] 30 Feb, 2012 [facility] [address] [id number] [address] [place] [address], [place] [address] 30 Feb, 2013 [facility] [address] [id number] [address] [place] [address], [place] [address] 27 Feb, 2013 [facility] [address] [id number] [address] [place] [address], [place] [address] Feb, 2012 [facility] [address] [id number] [address] [place] [address], [place] [address] Feb, [facility] [address] [id number] [address] [place] [address], [place] [address] Feb, [facility] [address] [id number] [address] [place] [address], [place] [address] Jan, [facility] [address] [id number] [address] [place] [address], [place] [address] Jan, [facility] [address] [id number] [address] [place] [address], [place] [address] Jan, [facility] [address] [id number] [address] [place] [address], [place] [address] Jan, [facility] [address] [id number] [address] [place] [address], [place] [address] Jan, [facility] [address] [id number] [address] [place] [address], [place] [address] Jan, [facility] [address] [id number] [address] [place] [address], [place] [address] Jan, [facility] [address] [id number] [address] [place] [address], [place] [address] Jan, [facility] [address] [id number] [address] [place] [address], [place] [address] Jan, [facility] [address] [id number] [address] [place] [address], [place] [address] Dec, [facility] [address] [id number] [address] [place] [address], [place] [address] Dec, [facility] [address] [id number] [address] [place] [address], [place] [address] Dec, [facility] [address] [id number] [address] [place] [address], [place] [address] Dec, [facility] [address] [id number] [address] [place] [address], [place] [address] Dec, [facility] [address] [id number] [address] [place] [address], [place] [address] Dec, [facility] [address] [id number] [address] [place] [address], [place] [address] Dec, [facility] [address] [id number] [address] [place] [address], [place] [address] Dec, [facility] [address] [id number] [address] [place] [address], [place] [address] Dec, [facility] [address] [id number] [address] [place] [address], [place] [address] Dec, [facility] [address] [id number] [address] [place] [address], [place] [address] Dec, [facility] [address] [id number] [address] [place] [address], [place] [address] Dec, [facility] [address] [id number] [address] [place] [address], [place] [address] Dec, [facility] [address] [id number] [address] [place] [address], [place] [address] Nov, [facility] [address] [id number] [address] [place] [address], [place] [address] Nov, [facility] [address] [id number] [address] [place] [address], [place] [address] Nov, [facility] [address] [id number] [address] [place] [address], [place] [address] Nov, [facility] [address] [id number] [address] [place] [address], [place] [address] October, [facility] [address] [id number] [address] [place] [address], [place] [address] October, [facility] [address] [id number] [address] [place] [address], [place] [address] October, [facility] [address] [id number] [address] [place] [address], [place] [address] October, [facility] [address] [id number] [address] [place] [address], [place] [address] October, [facility] [address] [id number] [address] [place] [address], [place] [address] October, [facility] [address] [id number] [address] [place] [address], [place] [address] Sep, [facility] [address] [id number] [address] [place] [address], [place] [address] Sep, [facility] [address] [id number] [address] [place] [address], [place] [address] Sep, [facility] [address] [id number] [address] [place] [address], [place] [address] Sep, [facility] [address] [id number] [address] [place] [address], [place] [address] Sep, [facility] [address] [id number] [facility] [place] [address] 16 Sep, 2012 [facility] [address] [id number] [address] [place] [address], [place] [address] 12 Sep, 2012 [facility] [address] [id number] [address] [place] [address], [place] [address] Sep, [facility] [address] [id number] [address] [place] [address], [place] [address] Sep, [facility] [address] [id number] [address] [place] [address], [place] [address] Sep, [facility] [address] [id number] [address] [place] [address], [place] [address] Sep, [facility] [address] [id number] [address] [place] [address], [place] [address] Aug, [facility] [address] [id number] [address] [place] [address], [place] [address] 25 Aug, 2012 [facility] [address] [id number] [address] [place] [address], [place] [address] 25 Aug, 2012 [facility] [address] [id number] [address] [place] [address], [place] [address] 21 Aug, 2012 [facility] [address] [id number] [address] [place] [address], [place] [address] 19 Aug, 2012 [facility] [address] [id number] [address] [place] [address], [place] [address] 18 Aug, 2012 [facility] [address] [id number] [address] [place] [address], [place] [address] 17 Aug, 2012 [facility] [address] [id number] [address] [place] [address], [place] [address] 15 Aug, 2012 [facility] [address] [id number] [address] [place] [address], [place] [address] 15 Aug, 2012 [facility] [address] [id number] [address] [place] [address], [place] [address] Aug, [facility] [address] [id number] [address] [place] [address], [place] [address] Aug, [facility] [address] [id number] [address] [place] [address], [place] [address] Aug, [facility] [address] [id number] [address] [place] [address], [place] [address] Jul, [facility] [address] [id number] [address] [place] [address], [place] [address] Jul, [facility] [address] [id number] [address] [place] [address], [place] [address] Jul, [facility] [address] [id number] [address] [place] [address], [place] [address] Jul, [facility] [address] [id number] [address] [place] [address], [place] [address] Jul, [facility] [address] [id number] [address] [place] [address], [place] [address] Jul, [facility] [address] [id number] [address] [place] [address], [place] [address] Jul, [facility] [address] [id number] [address] [place] [address], [place] [address] Jul, [facility] [address] [id number] [address] [place] [address], [place] [address] Jul, [facility] [address] [id number] [address] [place] [address], [place] [address] Jul, [facility] [address] [id number] [address] [place] [address], [place] [address] May, [facility] [address] [id number] [place] [id number] May, [facility] [address] [id number] [address] [place] [address], [place] [address] May, [facility] [address] [id number] [address] [place] [id number] May, [facility] [address] [facility] [id number] [address] [place] [address] May, [facility] [address] [facility] [id number] [address] [place] [id number] Apr, [facility] [address] [id number] [place] [id number] Apr, [facility] [address] [facility] [id number] [address] [place] [id number] Apr, [facility] [address] [facility] [id number] [address] [place] [address] Mar, [facility] [address] [id number] [place] [id number] Mar, [facility] [address] [facility] [id number] [address] [place] [id number] Mar, [facility] [address] [id number] [place] [id number] Feb, [facility] [address] [facility] [id number] [address] [place] [id number] Feb, [facility] [address] [facility] [id number] [address] [place] [id number] Feb, [facility] [address] [id number] [place] [id number] Feb, [facility] [address] [id number] [place] [id number] Feb, [facility] [address] [id number] [place] [id number] Jan, [facility] [address] [id number] [address] [place] [address], [place] [id number] Jan, [facility] [address] [id number] [place] [id number] Jan, [facility] [address] [id number] [place] [id number] Jan, [facility] [address] [id number] [place] [id number] Jan, [facility] [address] [facility] [id number] [address] [place] [address], [place] [id number] Jan, [facility] [address] [facility] [id number] [address] [place] [address], [place] [id number] Jan, [facility] [address] [facility] [id number] [address] [place] [address], [place] [id number] Aug, [facility] [address] [id number] [place] [id number] Aug, [facility] [address] [facility] [id number] [address] [place] [address], [place] [id number] Jul, [facility] [address] [facility] [id number] [address] [place] [address], [place] [id number] Jul, [facility] [address] [facility] [id number] [address] [place] [address], [place] [id number] Jul, [facility] [address] [id number] [place] [id number] Jul, [facility] [address] [facility] [id number] [address] [place] [address], [place] [address] Jul, [facility] [address] [id number] [place] [id number] Jul, [facility] [address] [facility] [id number] [address] [place] [address], [place] [id number] Jul, [facility] [address] [id number] [place] [id number] Jul, [facility] [address] [id number] [place] [id number] Jul, [facility] [address] [id number] [place] [id number] Jul, [facility] [address] [facility] [id number] [address] [place] [address], [place] [id number] May, [facility] [address] [id number] [address] [place] [id number] May, [facility] [address] [id number] [address] [place] [id number] May, [facility] [address] [id number] [address] [place] [id number] Apr, [facility] [address] [id number] [address] [place] [id number] Jan, [facility] [address] [id number] [address] [place] [id number] Jan, [facility] [address] [id number] [address] [place] [id number] Dec, [facility] [address] [id number] [address] [place] [id number] Dec, [facility] [address] [id number] [address] [place] [id number] May, [facility] [address] [id number] [address] [place] [id number] Mar, [facility] [address] [id number] [address] [place] [phone] Mar, [facility] [address] [id number] [address] [place] [phone] Jan, IMMUNIZATIONS No Known Immunizations SOCIAL HISTORY Never Assessed REASON FOR VISIT PLAN OF CARE VITAL SIGNS MEDICATIONS Unknown Medications RESULTS No Results PROCEDURES Procedure Date Ordered Result Body Site PROTHROMBIN TIME Aug 15, 2014 INSTRUCTIONS MEDICATIONS ADMINISTERED No Known Medications [...]
--- OUTSIDE RECORDS SUMMARY | 2020-01-28 12:24 | XMS REPORT ---
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 Active 498908807 Problem History of venous thromboembolism V12.51 Active 157822540 Problem Cellulitis of unspecified part of limb L03.119 Active 481477479 Problem Gastroesophageal reflux disease without esophagitis K21.9 Active 942026072 Problem History of pulmonary embolism Z86.711 Active 792218979 Problem Pseudotumor cerebri G93.2 Active 04513204 Problem History of DVT (deep vein thrombosis) Z86.718 Active 304087762 ALLERGIES No Information ENCOUNTERS Encounter Location Date Diagnosis [place] [address] [facility] [id number] [address] [place] [address] Apr, [facility] (current) use of 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 Z79.01 [facility] [address] [facility] [id number] [address] [place] [address] Apr, [facility] 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.01 [facility] [address] [facility] [id number] [address] [place] [address] Apr, Cellulitis of unspecified pa rt of limb L03.119 ; Allergic contact dermatitis due to adhesives L23.1 and Chronic pain syndrome G89.4 [facility] [address] [facility] [id number] [address] [place] [address] Apr, [place] [address] [place] [id number] [address] [place] [address] Apr, hat braider 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.01 ; Cellulitis of unspecified part of limb L03.119 ; Chronic pain syndrome G89.4 and Anxiety F41.9 [facility] [address] [place] [id number] [address] [place] [address] 16 Apr, 2015 [facility] [address] [place] [id number] [place] [address] Apr, [place] [address] [place] [id number] [place] [address] Mar, [place] [address] [address] Mar, [place] [address] [address] Mar, Sore throat J02.9 ; Gastroes ophageal reflux disease without esophagitis K21.9 ; Pseudotumor cerebri G93.2 ; Chronic pain syndrome G89.4 ; Choriocarcinoma C58 ; History of pulmonary embolism Z86.711 ; History of DVT (deep vein thrombosis) Z86.718 ; Anxiety F41.9 and Tachycardia R00.0 [place] [address] [address] Feb, Anxiety 300.00 and Chronic p ain 338.29 [place] [address] [place] [id number] [address] [place] [address] Feb, [place] [address] [place] [id number] [address] [place] [address] Feb, [place] [address] [address] Jan, hat braider 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 therapy V58.61 and Dysuria 788.1 [place] [address] [place] [id number] [place] [address] Jan, Dysuria 788.1 [facility] [address] [place] [id number] [address] [place] [address] Jan, Anxiety 300.00 and Chronic p ain 338.29 [facility] [address] [place] [id number] [place] [address] Jan, [facility] [address] [address] Jan, [facility] [address] [address] Jan, [place] [address] [address] Dec, Weakness 780.79 [place] [address] [address] Dec, [facility] 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 therapy V58.61 [place] [address] [address] Dec, Palpitations 785.1 ; Tremor 781.0 ; Weakness 780.79 ; [facility] 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 therapy V58.61 and Yeast vaginitis 112.1 [place] [address] [address] [place] [id number] [address] [place] [address] Dec, [place] [address] [address] Dec, Cervicalgia 723.1 ; Tachycar yoseph 785.0 ; Pseudotumor cerebri 348.2 and History of venous thromboembolism V12.51 [place] [address] [address] Nov, [place] [address] [address] Nov, [place] [address] [address] Nov, Tachycardia 785.0 ; Pseudotu mor cerebri 348.2 ; Anxiety 300.00 and History of venous thromboembolism V12.51 [facility] [address] [id number] [address] [place] [address] Nov, [facility] [address] [id number] [address] [place] [address] 18 Nov, 2014 [facility] [address] [id number] [address] [place] [address] Nov, [facility] [address] [id number] [address] [place] [address] Nov, [facility] [address] [facility] [id number] [address] [place] [address] Nov, [facility] [address] [facility] [id number] [address] [place] [address] Nov, [facility] [address] [facility] [id number] [address] [place] [address] Nov, [facility] [address] [facility] [id number] [address] [place] [address] October, [facility] [address] [facility] [id number] [address] [place] [address] October, [facility] [address] [place] [id number] [address] [place] [address] October, Pain in thoracic spine 724.1 and Tachycardia 785.0 [facility] [address] [id number] [address] [place] [address] October, [facility] [address] [id number] [address] [place] [address] October, [facility] [address] [facility] [id number] [address] [place] [address] 14 Sep, 2014 [facility] [address] [facility] [id number] [address] [place] [address] Sep, [facility] [address] [id number] [facility] [place] [address] Aug, [facility] [address] [id number] [address] [place] [address], [place] [address] Aug, [facility] [address] [id number] [address] [place] [address], [place] [address] Aug, [facility] [address] [id number] [address] [place] [address], [place] [address] Aug, [facility] [address] [id number] [address] [place] [address], [place] [address] Aug, [facility] [address] [id number] [address] [place] [address], [place] [address] Aug, [facility] [address] [id number] [address] [place] [address], [place] [address] Aug, [facility] [address] [id number] [address] [place] [address], [place] [address] Aug, [facility] [address] [id number] [address] [place] [address], [place] [address] Aug, [facility] [address] [id number] [address] [place] [address], [place] [address] Aug, [facility] [address] [id number] [address] [place] [address], [place] [address] Aug, [facility] [address] [id number] [address] [place] [address], [place] [address] Aug, 2014 [facility] [address] [id number] [address] [place] [address], [place] [address] Jul, [facility] [address] [id number] [address] [place] [address], [place] [address] Jul, [facility] [address] [id number] [address] [place] [address], [place] [address] Jul, [facility] [address] [id number] [address] [place] [address], [place] [address] Jul, [facility] [address] [id number] [address] [place] [address], [place] [address] 23 Jul, 2014 [facility] [address] [id number] [address] [place] [address], [place] [address] 23 Jul, 2014 [facility] [address] [id number] [address] [place] [address], [place] [address] 23 Jul, 2014 [facility] [address] [id number] [address] [place] [address], [place] [address] 23 Jul, 2014 [facility] [address] [id number] [address] [place] [address], [place] [address] 20 Jul, 2014 [facility] [address] [id number] [address] [place] [address], [place] [address] 20 Jul, 2014 [facility] [address] [id number] [address] [place] [address], [place] [address] 19 Jul, 2014 [facility] [address] [id number] [address] [place] [address], [place] [address] 19 Jul, 2014 [facility] [address] [id number] [address] [place] [address], [place] [address] 17 Jul, 2014 [facility] [address] [id number] [address] [place] [address], [place] [address] 17 Jul, 2014 [facility] [address] [id number] [address] [place] [address], [place] [address] 16 Jul, 2014 [facility] [address] [id number] [address] [place] [address], [place] [address] 16 Jul, 2014 [facility] [address] [id number] [address] [place] [address], [place] [address] 16 Jul, 2014 [facility] [address] [id number] [address] [place] [address] 16 Jul, 2014 [facility] [address] [id number] [address] [place] [address] 13 Jul, 2014 [facility] [address] [id number] [address] [place] [address], [place] [address] Jul, [facility] [address] [id number] [address] [place] [address], [place] [address] Jul, [facility] [address] [id number] [address] [place] [address], [place] [address] Jul, 2014 [facility] [address] [id number] [address] [place] [address], [place] [address] Jul, 2014 [facility] [address] [id number] [address] [place] [address], [place] [address] Jul, [facility] [address] [id number] [address] [place] [address], [place] [address] Jul, [facility] [address] [id number] [address] [place] [address], [place] [address] Jul, [facility] [address] [id number] [address] [place] [address], [place] [address] Jul, [facility] [address] [id number] [address] [place] [address], [place] [address] Jul, [facility] [address] [id number] [address] [place] [address], [place] [address] Jul, [facility] [address] [id number] [address] [place] [address], [place] [address] Jul, [facility] [address] [id number] [address] [place] [address], [place] [address] Jun, [facility] [address] [id number] [address] [place] [address], [place] [address] Jun, [facility] [address] [id number] [address] [place] [address], [place] [address] Jun, [facility] [address] [id number] [address] [place] [address], [place] [address] Jun, [facility] [address] [id number] [address] [place] [address], [place] [address] Jun, [facility] [address] [id number] [address] [place] [address], [place] [address] Jun, [facility] [address] [id number] [address] [place] [address], [place] [address] Jun, [facility] [address] [id number] [address] [place] [address], [place] [address] Jun, [facility] [address] [id number] [address] [place] [address], [place] [address] Jun, [facility] [address] [id number] [address] [place] [address], [place] [address] Jun, [facility] [address] [id number] [address] [place] [address], [place] [address] Jun, [facility] [address] [id number] [address] [place] [address], [place] [address] Jun, [facility] [address] [id number] [address] [place] [address], [place] [address] Jun, [facility] [address] [id number] [address] [place] [address], [place] [address] Jun, [facility] [address] [id number] [address] [place] [address], [place] [address] Jun, [facility] [address] [id number] [address] [place] [address], [place] [address] Jun, [facility] [address] [id number] [address] [place] [address], [place] [address] Jun, [facility] [address] [id number] [address] [place] [address], [place] [address] Jun, [facility] [address] [id number] [address] [place] [address], [place] [address] Jun, [facility] [address] [id number] [address] [place] [address], [place] [address] Jun, [facility] [address] [id number] [address] [place] [address], [place] [address] May, [facility] [address] [id number] [address] [place] [address], [place] [address] May, [facility] [address] [id number] [address] [place] [address], [place] [address] May, [facility] [address] [id number] [address] [place] [address], [place] [address] May, [facility] [address] [id number] [address] [place] [address], [place] [address] May, [facility] [address] [id number] [address] [place] [address], [place] [address] May, [facility] [address] [id number] [address] [place] [address], [place] [address] May, [facility] [address] [id number] [address] [place] [address], [place] [address] May, [facility] [address] [id number] [address] [place] [address], [place] [address] May, [facility] [address] [id number] [address] [place] [address], [place] [address] May, [facility] [address] [id number] [address] [place] [address], [place] [address] May, [facility] [address] [id number] [address] [place] [address], [place] [address] 18 May, 2014 [facility] [address] [id number] [address] [place] [address], [place] [address] 18 May, 2014 [facility] [address] [id number] [address] [place] [address], [place] [address] 17 May, 2014 [facility] [address] [id number] [address] [place] [address], [place] [address] 16 May, 2014 [facility] [address] [id number] [address] [place] [address], [place] [address] 16 May, 2014 [facility] [address] [id number] [address] [place] [address], [place] [address] 15 May, 2014 [facility] [address] [id number] [address] [place] [address], [place] [address] 15 May, 2014 [facility] [address] [id number] [address] [place] [address], [place] [address] May, [facility] [address] [id number] [address] [place] [address], [place] [address] May, [facility] [address] [id number] [address] [place] [address], [place] [address] May, [facility] [address] [id number] [address] [place] [address], [place] [address] May, [facility] [address] [id number] [address] [place] [address], [place] [address] May, [facility] [address] [id number] [address] [place] [address], [place] [address] May, [facility] [address] [id number] [address] [place] [address], [place] [address] May, [facility] [address] [id number] [address] [place] [address], [place] [address] May, [facility] [address] [id number] [address] [place] [address], [place] [address] May, [facility] [address] [id number] [address] [place] [address], [place] [address] May, [facility] [address] [id number] [address] [place] [address], [place] [address] May, [facility] [address] [id number] [address] [place] [address], [place] [address] May, [facility] [address] [id number] [address] [place] [address], [place] [address] May, [facility] [address] [id number] [address] [place] [address], [place] [address] May, [facility] [address] [id number] [address] [place] [address], [place] [address] May, [facility] [address] [id number] [address] [place] [address], [place] [address] May, [facility] [address] [id number] [address] [place] [address], [place] [address] Apr, [facility] [address] [id number] [address] [place] [address], [place] [address] Apr, [facility] [address] [id number] [address] [place] [address], [place] [address] Apr, [facility] [address] [id number] [address] [place] [address], [place] [address] Apr, [facility] [address] [id number] [address] [place] [address], [place] [address] Apr, [facility] [address] [id number] [address] [place] [address], [place] [address] Apr, [facility] [address] [id number] [address] [place] [address], [place] [address] Apr, [facility] [address] [id number] [address] [place] [address], [place] [address] Apr, [facility] [address] [id number] [address] [place] [address], [place] [address] Apr, [facility] [address] [id number] [address] [place] [address], [place] [address] Apr, [facility] [address] [id number] [address] [place] [address], [place] [address] Mar, [facility] [address] [id number] [address] [place] [address], [place] [address] Mar, [facility] [address] [id number] [address] [place] [address] [address] Mar, [facility] [address] [id number] [address] [place] [address], [place] [address] 31 Mar, 2013 [facility] [address] [id number] [address] [place] [address], [place] [address] Mar, [facility] [address] [id number] [address] [place] [address], [place] [address] 30 Mar, 2014 [facility] [address] [id number] [address] [place] [address], [place] [address] Mar, [facility] [address] [id number] [address] [place] [address], [place] [address] Mar, [facility] [address] [id number] [address] [place] [address], [place] [address] Mar, [facility] [address] [id number] [address] [place] [address], [place] [address] Mar, [facility] [address] [id number] [address] [place] [address] Mar, [facility] [address] [id number] [address] [place] [address] Mar, [facility] [address] [id number] [address] [place] [address] Mar, [facility] [address] [id number] [address] [place] [address] Mar, 2013 [facility] [address] [id number] [address] [place] [address] Mar, 2013 [facility] [address] [id number] [address] [place] [address] Mar, [facility] [address] [id number] [address] [place] [address] Mar, [facility] [address] [id number] [address] [place] [address] Mar, 2013 [facility] [address] [id number] [address] [place] [address], [place] [address] 02 Mar, 2013 [facility] [address] [id number] [address] [place] [address], [place] [address] 02 Mar, 2013 [facility] [address] [id number] [address] [place] [address], [place] [address] 05 Sep, 2013 [facility] [address] [id number] [address] [place] [address], [place] [address] 05 Sep, 2013 [facility] [address] [id number] [address] [place] [address], [place] [address] 04 Sep, 2013 [facility] [address] [id number] [address] [place] [address], [place] [address] 04 Sep, 2013 [facility] [address] [id number] [address] [place] [address], [place] [address] 03 Feb, 2013 [facility] [address] [id number] [address] [place] [address], [place] [address] 03 Feb, 2013 [facility] [address] [id number] [address] [place] [address], [place] [address] 02 Feb, 2013 [facility] [address] [id number] [address] [place] [address], [place] [address] Feb, 2013 [facility] [address] [id number] [address] [place] [address], [place] [address] 02 Feb, 2013 [facility] [address] [id number] [address] [place] [address], [place] [address] Feb, 2013 [facility] [address] [id number] [address] [place] [address], [place] [address] Jan, [facility] [address] [id number] [address] [place] [address], [place] [address] Jan, [facility] [address] [id number] [address] [place] [address], [place] [address] Jan, [facility] [address] [id number] [address] [place] [address], [place] [address] Jan, [facility] [address] [id number] [facility] [place] [address] Jan, [facility] [address] [id number] [address] [place] [address], [place] [address] Jan, [facility] [address] [id number] [address] [place] [address], [place] [address] Jan, [facility] [address] [id number] [address] [place] [address], [place] [address] Jan, [facility] [address] [id number] [address] [place] [address], [place] [address] Jan, [facility] [address] [id number] [address] [place] [address], [place] [address] Jan, [facility] [address] [id number] [address] [place] [address], [place] [address] Jan, [facility] [address] [id number] [address] [place] [address], [place] [address] Jan, [facility] [address] [id number] [address] [place] [address], [place] [address] Dec, [facility] [address] [id number] [address] [place] [address], [place] [address] Dec, [facility] [address] [id number] [address] [place] [address], [place] [address] Dec, [facility] [address] [id number] [address] [place] [address], [place] [address] Dec, [facility] [address] [id number] [address] [place] [address], [place] [address] Dec, [facility] [address] [id number] [address] [place] [address], [place] [address] Dec, [facility] [address] [id number] [address] [place] [address], [place] [address] Dec, [facility] [address] [id number] [address] [place] [address], [place] [address] Dec, [facility] [address] [id number] [facility] [place] [address] Dec, [facility] [address] [id number] [address] [place] [address], [place] [address] Dec, [facility] [address] [id number] [address] [place] [address], [place] [address] Dec, [facility] [address] [id number] [address] [place] [address], [place] [address] Dec, [facility] [address] [id number] [address] [place] [address], [place] [address] Nov, [facility] [address] [id number] [address] [place] [address], [place] [address] Nov, [facility] [address] [id number] [address] [place] [address], [place] [address] Nov, [facility] [address] [id number] [address] [place] [address], [place] [address] Nov, [facility] [address] [id number] [address] [place] [address], [place] [address] Nov, [facility] [address] [id number] [address] [place] [address], [place] [address] Nov, [facility] [address] [id number] [address] [place] [address], [place] [address] Nov, [facility] [address] [id number] [address] [place] [address], [place] [address] Nov, [facility] [address] [id number] [address] [place] [address], [place] [address] Nov, [facility] [address] [id number] [address] [place] [address], [place] [address] Nov, [facility] [address] [id number] [address] [place] [address], [place] [address] Nov, [facility] [address] [id number] [facility] [place] [address] Nov, [facility] [address] [id number] [address] [place] [address], [place] [address] Nov, [facility] [address] [id number] [address] [place] [address], [place] [address] Nov, [facility] [address] [id number] [address] [place] [address], [place] [address] October, [facility] [address] [id number] [address] [place] [address], [place] [address] October, [facility] [address] [id number] [address] [place] [address], [place] [address] October, [facility] [address] [id number] [address] [place] [address], [place] [address] October, [facility] [address] [id number] [address] [place] [address], [place] [address] October, [facility] [address] [id number] [address] [place] [address], [place] [address] October, [facility] [address] [id number] [address] [place] [address], [place] [address] October, [facility] [address] [id number] [address] [place] [address], [place] [address] October, [facility] [address] [id number] [address] [place] [address], [place] [address] October, [facility] [address] [id number] [address] [place] [address], [place] [address] October, [facility] [address] [id number] [address] [place] [address], [place] [address] October, [facility] [address] [id number] [address] [place] [address], [place] [address] October, [facility] [address] [id number] [address] [place] [address], [place] [address] Sep, [facility] [address] [id number] [facility] [place] [address] Sep, [facility] [address] [id number] [address] [place] [address], [place] [address] Sep, [facility] [address] [id number] [facility] [place] [address] Sep, [facility] [address] [id number] [address] [place] [address], [place] [address] Sep, [facility] [address] [id number] [address] [place] [address], [place] [address] Sep, [facility] [address] [id number] [address] [place] [address], [place] [address] Aug, [facility] [address] [id number] [address] [place] [address], [place] [address] Aug, [facility] [address] [id number] [address] [place] [address], [place] [address] Aug, [facility] [address] [id number] [address] [place] [address], [place] [address] Aug, [facility] [address] [id number] [address] [place] [address], [place] [address] Aug, [facility] [address] [id number] [address] [place] [address], [place] [address] Aug, [facility] [address] [id number] [address] [place] [address], [place] [address] Jul, [facility] [address] [id number] [address] [place] [address], [place] [address] Jul, [facility] [address] [id number] [address] [place] [address], [place] [address] Jul, [facility] [address] [id number] [address] [place] [address], [place] [address] Jul, [facility] [address] [id number] [address] [place] [address], [place] [address] 13 Jul, 2013 [facility] [address] [id number] [address] [place] [address], [place] [address] Jul, [facility] [address] [id number] [address] [place] [address], [place] [address] Jul, [facility] [address] [id number] [address] [place] [address], [place] [address] Jul, [facility] [address] [id number] [address] [place] [address], [place] [address] Jul, [facility] [address] [id number] [address] [place] [address], [place] [address] Jul, [facility] [address] [id number] [address] [place] [address], [place] [address] Jun, [facility] [address] [id number] [address] [place] [address], [place] [address] Jun, [facility] [address] [id number] [address] [place] [address], [place] [address] Jun, [facility] [address] [id number] [address] [place] [address], [place] [address] Jun, [facility] [address] [id number] [address] [place] [address], [place] [address] Jun, [facility] [address] [id number] [address] [place] [address], [place] [address] Jun, [facility] [address] [id number] [address] [place] [address], [place] [address] Jun, [facility] [address] [id number] [address] [place] [address], [place] [address] Jun, [facility] [address] [id number] [address] [place] [address], [place] [address] May, [facility] [address] [id number] [address] [place] [address], [place] [address] May, [facility] [address] [id number] [address] [place] [address], [place] [address] May, [facility] [address] [id number] [address] [place] [address], [place] [address] May, [facility] [address] [id number] [address] [place] [address], [place] [address] May, [facility] [address] [id number] [address] [place] [address], [place] [address] May, [facility] [address] [id number] [address] [place] [address], [place] [address] May, [facility] [address] [id number] [address] [place] [address], [place] [address] May, [facility] [address] [id number] [address] [place] [address], [place] [address] Apr, [facility] [address] [id number] [address] [place] [address] Apr, [facility] [address] [id number] [address] [place] [address], [place] [address] Apr, [facility] [address] [id number] [address] [place] [address] Apr, [facility] [address] [id number] [address] [place] [address] Apr, [facility] [address] [id number] [address] [place] [address] Apr, [facility] [address] [id number] [address] [place] [address], [place] [address] Mar, [facility] [address] [id number] [address] [place] [address] Mar, [facility] [address] [id number] [address] [place] [address], [place] [address] Mar, [facility] [address] [id number] [address] [place] [address], [place] [address] Mar, [facility] [address] [id number] [address] [place] [address], [place] [address] Mar, [facility] [address] [id number] [address] [place] [address], [place] [address] Mar, [facility] [address] [id number] [address] [place] [address], [place] [address] Mar, [facility] [address] [id number] [address] [place] [address], [place] [address] 30 Feb, 2012 [facility] [address] [id number] [address] [place] [address], [place] [address] 30 Feb, 2013 [facility] [address] [id number] [address] [place] [address], [place] [address] 27 Feb, 2013 [facility] [address] [id number] [address] [place] [address], [place] [address] Feb, 2012 [facility] [address] [id number] [address] [place] [address], [place] [address] Feb, [facility] [address] [id number] [address] [place] [address], [place] [address] Feb, [facility] [address] [id number] [address] [place] [address], [place] [address] Jan, [facility] [address] [id number] [address] [place] [address], [place] [address] Jan, [facility] [address] [id number] [address] [place] [address], [place] [address] Jan, [facility] [address] [id number] [address] [place] [address], [place] [address] Jan, [facility] [address] [id number] [address] [place] [address], [place] [address] Jan, [facility] [address] [id number] [address] [place] [address], [place] [address] Jan, [facility] [address] [id number] [address] [place] [address], [place] [address] Jan, [facility] [address] [id number] [address] [place] [address], [place] [address] Jan, [facility] [address] [id number] [address] [place] [address], [place] [address] Jan, [facility] [address] [id number] [address] [place] [address], [place] [address] Dec, [facility] [address] [id number] [address] [place] [address], [place] [address] Dec, [facility] [address] [id number] [address] [place] [address], [place] [address] Dec, [facility] [address] [id number] [address] [place] [address], [place] [address] Dec, [facility] [address] [id number] [address] [place] [address], [place] [address] Dec, [facility] [address] [id number] [address] [place] [address], [place] [address] Dec, [facility] [address] [id number] [address] [place] [address], [place] [address] Dec, [facility] [address] [id number] [address] [place] [address], [place] [address] Dec, [facility] [address] [id number] [address] [place] [address], [place] [address] Dec, [facility] [address] [id number] [address] [place] [address], [place] [address] Dec, [facility] [address] [id number] [address] [place] [address], [place] [address] Dec, [facility] [address] [id number] [address] [place] [address], [place] [address] Dec, [facility] [address] [id number] [address] [place] [address], [place] [address] Dec, [facility] [address] [id number] [address] [place] [address], [place] [address] Nov, [facility] [address] [id number] [address] [place] [address], [place] [address] Nov, [facility] [address] [id number] [address] [place] [address], [place] [address] Nov, [facility] [address] [id number] [address] [place] [address], [place] [address] Nov, [facility] [address] [id number] [address] [place] [address], [place] [address] October, [facility] [address] [id number] [address] [place] [address], [place] [address] October, [facility] [address] [id number] [address] [place] [address], [place] [address] October, [facility] [address] [id number] [address] [place] [address], [place] [address] October, [facility] [address] [id number] [address] [place] [address], [place] [address] October, [facility] [address] [id number] [address] [place] [address], [place] [address] October, [facility] [address] [id number] [address] [place] [address], [place] [address] Sep, [facility] [address] [id number] [address] [place] [address], [place] [address] Sep, [facility] [address] [id number] [address] [place] [address], [place] [address] Sep, [facility] [address] [id number] [address] [place] [address], [place] [address] Sep, [facility] [address] [id number] [address] [place] [address], [place] [address] Sep, [facility] [address] [id number] [facility] [place] [address] 16 Sep, 2012 [facility] [address] [id number] [address] [place] [address], [place] [address] 12 Sep, 2012 [facility] [address] [id number] [address] [place] [address], [place] [address] Sep, [facility] [address] [id number] [address] [place] [address], [place] [address] Sep, [facility] [address] [id number] [address] [place] [address], [place] [address] Sep, [facility] [address] [id number] [address] [place] [address], [place] [address] Sep, [facility] [address] [id number] [address] [place] [address], [place] [address] Aug, [facility] [address] [id number] [address] [place] [address], [place] [address] 25 Aug, 2012 [facility] [address] [id number] [address] [place] [address], [place] [address] 25 Aug, 2012 [facility] [address] [id number] [address] [place] [address], [place] [address] 21 Aug, 2012 [facility] [address] [id number] [address] [place] [address], [place] [address] 19 Aug, 2012 [facility] [address] [id number] [address] [place] [address], [place] [address] 18 Aug, 2012 [facility] [address] [id number] [address] [place] [address], [place] [address] 17 Aug, 2012 [facility] [address] [id number] [address] [place] [address], [place] [address] 15 Aug, 2012 [facility] [address] [id number] [address] [place] [address], [place] [address] 15 Aug, 2012 [facility] [address] [id number] [address] [place] [address], [place] [address] Aug, [facility] [address] [id number] [address] [place] [address], [place] [address] Aug, [facility] [address] [id number] [address] [place] [address], [place] [address] Aug, [facility] [address] [id number] [address] [place] [address], [place] [address] Jul, [facility] [address] [id number] [address] [place] [address], [place] [address] Jul, [facility] [address] [id number] [address] [place] [address], [place] [address] Jul, [facility] [address] [id number] [address] [place] [address], [place] [address] Jul, [facility] [address] [id number] [address] [place] [address], [place] [address] Jul, [facility] [address] [id number] [address] [place] [address], [place] [address] Jul, [facility] [address] [id number] [address] [place] [address], [place] [address] Jul, [facility] [address] [id number] [address] [place] [address], [place] [address] Jul, [facility] [address] [id number] [address] [place] [address], [place] [address] Jul, [facility] [address] [id number] [address] [place] [address], [place] [address] Jul, [facility] [address] [id number] [address] [place] [address], [place] [address] May, [facility] [address] [id number] [place] [id number] May, [facility] [address] [id number] [address] [place] [address], [place] [address] May, [facility] [address] [id number] [address] [place] [id number] May, [facility] [address] [facility] [id number] [address] [place] [address] May, [facility] [address] [facility] [id number] [address] [place] [address] Apr, [facility] [address] [id number] [place] [id number] Apr, [facility] [address] [facility] [id number] [address] [place] [phone] Apr, [facility] [address] [facility] [id number] [address] [place] [address] Mar, [facility] [address] [id number] [place] [id number] Mar, [facility] [address] [facility] [id number] [address] [place] [address] Mar, [facility] [address] [id number] [place] [id number] Feb, [facility] [address] [facility] [id number] [address] [place] [phone] Feb, [facility] [address] [facility] [id number] [address] [place] [phone] Feb, [facility] [place] [address] [id number] [place] [id number] Feb, [facility] [address] [id number] [place] [id number] Feb, [facility] [address] [id number] [place] [id number] Jan, [facility] [address] [id number] [address] [place] [address], [place] [address] Jan, [facility] [address] [id number] [place] [id number] Jan, [facility] [address] [id number] [place] [id number] Jan, [facility] [address] [id number] [place] [id number] Jan, [facility] [address] [facility] [id number] [address] [place] [address], [place] [address] Jan, [facility] [address] [facility] [id number] [address] [place] [address], [place] [address] Jan, [facility] [address] [facility] [id number] [address] [place] [address], [place] [address] Aug, [facility] [address] [id number] [place] [id number] Aug, [facility] [address] [facility] [id number] [address] [place] [address], [place] [address] Jul, [facility] [address] [facility] [id number] [address] [place] [address], [place] [address] Jul, [facility] [address] [facility] [id number] [address] [place] [address], [place] [address] Jul, [facility] [address] [id number] [place] [id number] Jul, [facility] [address] [facility] [id number] [address] [place] [address], [place] [address] Jul, [facility] [address] [id number] [place] [id number] Jul, [facility] [address] [facility] [id number] [address] [place] [address], [place] [address] Jul, [facility] [address] [id number] [place] [id number] Jul, [facility] [address] [id number] [place] [id number] Jul, [facility] [address] [id number] [place] [id number] Jul, [facility] [address] [facility] [id number] [address] [place] [address], [place] [address] May, [facility] [address] [id number] [address] [place] [address] May, [facility] [address] [id number] [address] [place] [phone] May, [facility] [address] [id number] [address] [place] [phone] Apr, [facility] [address] [id number] [address] [place] [id number] Jan, [facility] [address] [id number] [address] [place] [id number] Jan, [facility] [facility] [address] [id number] [address] [place] [phone] Dec, [facility] [address] [id number] [address] [place] [phone] Dec, [facility] [address] [id number] [address] [place] [phone] May, [facility] [address] [id number] [address] [place] [id number] Mar, [facility] [address] [id number] [address] [place] [phone] Mar, [facility] [address] [id number] [address] [place] [phone] Jan, IMMUNIZATIONS No Known Immunizations SOCIAL HISTORY [...]
--- OUTSIDE RECORDS SUMMARY | 2020-01-28 12:25 | XMS REPORT ---
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 [id number] [address] [place] [address] Apr, retirement (current) use of 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 Z79.01 [facility] [address] [facility] [id number] [address] [place] [address] Apr, retirement 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.01 [facility] [address] [facility] [id number] [address] [place] [address] Apr, Cellulitis of unspecified pa rt of limb L03.119 ; Allergic contact dermatitis due to adhesives L23.1 and Chronic pain syndrome G89.4 [facility] [address] [facility] [id number] [address] [place] [address] Apr, [place] [address] [place] [id number] [address] [place] [address] Apr, 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 designer 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.01 ; Cellulitis of unspecified part of limb L03.119 ; Chronic pain syndrome G89.4 and Anxiety F41.9 [facility] [address] [place] [id number] [address] [place] [address] 16 Apr, 2015 [facility] [address] [place] [id number] [place] [address] Apr, [place] [address] [place] [id number] [place] [address] Mar, [place] [address] [address] Mar, [place] [address] [address] Mar, Sore throat J02.9 ; Gastroes ophageal reflux disease without esophagitis K21.9 ; Pseudotumor cerebri G93.2 ; Chronic pain syndrome G89.4 ; Choriocarcinoma C58 ; History of pulmonary embolism Z86.711 ; History of DVT (deep vein thrombosis) Z86.718 ; Anxiety F41.9 and Tachycardia R00.0 [place] [address] [address] Feb, Anxiety 300.00 and Chronic p ain 338.29 [place] [address] [place] [id number] [address] [place] [address] Feb, [place] [address] [place] [id number] [address] [place] [address] Feb, [place] [address] [address] Jan, 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 designer 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 therapy V58.61 and Dysuria 788.1 [place] [address] [place] [id number] [place] [address] Jan, Dysuria 788.1 [facility] [address] [place] [id number] [address] [place] [address] Jan, Anxiety 300.00 and Chronic p ain 338.29 [facility] [address] [place] [id number] [place] [address] Jan, [facility] [address] [address] Jan, [facility] [address] [address] Jan, [place] [address] [address] Dec, Weakness 780.79 [place] [address] [address] Dec, retirement 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 therapy V58.61 [place] [address] [address] Dec, Palpitations 785.1 ; Tremor 781.0 ; Weakness 780.79 ; retirement 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 therapy V58.61 and Yeast vaginitis 112.1 [place] [address] [place] [id number] [address] [place] [address] Dec, [place] [address] [address] Dec, Cervicalgia 723.1 ; Tachycar yoseph 785.0 ; Pseudotumor cerebri 348.2 and History of venous thromboembolism V12.51 [place] [address] [address] Nov, [place] [address] [address] Nov, [place] [address] [address] Nov, Tachycardia 785.0 ; Pseudotu mor cerebri 348.2 ; Anxiety 300.00 and History of venous thromboembolism V12.51 [facility] [address] [id number] [address] [place] [address] Nov, [facility] [address] [id number] [address] [place] [address] 18 Nov, 2014 [facility] [address] [id number] [address] [place] [address] Nov, [facility] [address] [id number] [address] [place] [address] Nov, [facility] [address] [facility] [id number] [address] [place] [address] Nov, [facility] [address] [facility] [id number] [address] [place] [address] Nov, [facility] [address] [facility] [id number] [address] [place] [address] Nov, [facility] [address] [facility] [id number] [address] [place] [address] October, [facility] [address] [facility] [id number] [address] [place] [address] October, [facility] [address] [place] [id number] [address] [place] [address] October, Pain in thoracic spine 724.1 and Tachycardia 785.0 [facility] [address] [id number] [address] [place] [address] October, [facility] [address] [id number] [address] [place] [address] October, [facility] [address] [facility] [id number] [address] [place] [address] 14 Sep, 2014 [facility] [address] [facility] [id number] [address] [place] [address] Sep, [facility] [address] [id number] [facility] [place] [address] Aug, [facility] [address] [id number] [address] [place] [address], [place] [address] Aug, [facility] [address] [id number] [address] [place] [address], [place] [address] Aug, [facility] [address] [id number] [address] [place] [address], [place] [address] Aug, [facility] [address] [id number] [address] [place] [address], [place] [address] Aug, [facility] [address] [id number] [address] [place] [address], [place] [address] Aug, [facility] [address] [id number] [address] [place] [address], [place] [address] Aug, [facility] [address] [id number] [address] [place] [address], [place] [address] Aug, [facility] [address] [id number] [address] [place] [address], [place] [address] Aug, [facility] [address] [id number] [address] [place] [address], [place] [address] Aug, [facility] [address] [id number] [address] [place] [address], [place] [address] Aug, [facility] [address] [id number] [address] [place] [address], [place] [address] Aug, 2014 [facility] [address] [id number] [address] [place] [address], [place] [address] Jul, [facility] [address] [id number] [address] [place] [address], [place] [address] Jul, [facility] [address] [id number] [address] [place] [address], [place] [address] Jul, [facility] [address] [id number] [address] [place] [address], [place] [address] Jul, [facility] [address] [id number] [address] [place] [address], [place] [address] 23 Jul, 2014 [facility] [address] [id number] [address] [place] [address], [place] [address] 23 Jul, 2014 [facility] [address] [id number] [address] [place] [address], [place] [address] 23 Jul, 2014 [facility] [address] [id number] [address] [place] [address], [place] [address] 23 Jul, 2014 [facility] [address] [id number] [address] [place] [address], [place] [address] 20 Jul, 2014 [facility] [address] [id number] [address] [place] [address], [place] [address] 20 Jul, 2014 [facility] [address] [id number] [address] [place] [address], [place] [address] 19 Jul, 2014 [facility] [address] [id number] [address] [place] [address], [place] [address] 19 Jul, 2014 [facility] [address] [id number] [address] [place] [address], [place] [address] 17 Jul, 2014 [facility] [address] [id number] [address] [place] [address], [place] [address] 17 Jul, 2014 [facility] [address] [id number] [address] [place] [address], [place] [address] 16 Jul, 2014 [facility] [address] [id number] [address] [place] [address], [place] [address] 16 Jul, 2014 [facility] [address] [id number] [address] [place] [address], [place] [address] 16 Jul, 2014 [facility] [address] [id number] [address] [place] [address] 16 Jul, 2014 [facility] [address] [id number] [address] [place] [address] 13 Jul, 2014 [facility] [address] [id number] [address] [place] [address], [place] [address] Jul, [facility] [address] [id number] [address] [place] [address], [place] [address] Jul, [facility] [address] [id number] [address] [place] [address], [place] [address] Jul, 2014 [facility] [address] [id number] [address] [place] [address], [place] [address] Jul, 2014 [facility] [address] [id number] [address] [place] [address], [place] [address] Jul, [facility] [address] [id number] [address] [place] [address], [place] [address] Jul, [facility] [address] [id number] [address] [place] [address], [place] [address] Jul, [facility] [address] [id number] [address] [place] [address], [place] [address] Jul, [facility] [address] [id number] [address] [place] [address], [place] [address] Jul, [facility] [address] [id number] [address] [place] [address], [place] [address] Jul, [facility] [address] [id number] [address] [place] [address], [place] [address] Jul, [facility] [address] [id number] [address] [place] [address], [place] [address] Jun, [facility] [address] [id number] [address] [place] [address], [place] [address] Jun, [facility] [address] [id number] [address] [place] [address], [place] [address] Jun, [facility] [address] [id number] [address] [place] [address], [place] [address] Jun, [facility] [address] [id number] [address] [place] [address], [place] [address] Jun, [facility] [address] [id number] [address] [place] [address], [place] [address] Jun, [facility] [address] [id number] [address] [place] [address], [place] [address] Jun, [facility] [address] [id number] [address] [place] [address], [place] [address] Jun, [facility] [address] [id number] [address] [place] [address], [place] [address] Jun, [facility] [address] [id number] [address] [place] [address], [place] [address] Jun, [facility] [address] [id number] [address] [place] [address], [place] [address] Jun, [facility] [address] [id number] [address] [place] [address], [place] [address] Jun, [facility] [address] [id number] [address] [place] [address], [place] [address] Jun, [facility] [address] [id number] [address] [place] [address], [place] [address] Jun, [facility] [address] [id number] [address] [place] [address], [place] [address] Jun, [facility] [address] [id number] [address] [place] [address], [place] [address] Jun, [facility] [address] [id number] [address] [place] [address], [place] [address] Jun, [facility] [address] [id number] [address] [place] [address], [place] [address] Jun, [facility] [address] [id number] [address] [place] [address], [place] [address] Jun, [facility] [address] [id number] [address] [place] [address], [place] [address] Jun, [facility] [address] [id number] [address] [place] [address], [place] [address] May, [facility] [address] [id number] [address] [place] [address], [place] [address] May, [facility] [address] [id number] [address] [place] [address], [place] [address] May, [facility] [address] [id number] [address] [place] [address], [place] [address] May, [facility] [address] [id number] [address] [place] [address], [place] [address] May, [facility] [address] [id number] [address] [place] [address], [place] [address] May, [facility] [address] [id number] [address] [place] [address], [place] [address] May, [facility] [address] [id number] [address] [place] [address], [place] [address] May, [facility] [address] [id number] [address] [place] [address], [place] [address] May, [facility] [address] [id number] [address] [place] [address], [place] [address] May, [facility] [address] [id number] [address] [place] [address], [place] [address] May, [facility] [address] [id number] [address] [place] [address], [place] [address] 18 May, 2014 [facility] [address] [id number] [address] [place] [address], [place] [address] 18 May, 2014 [facility] [address] [id number] [address] [place] [address], [place] [address] 17 May, 2014 [facility] [address] [id number] [address] [place] [address], [place] [address] 16 May, 2014 [facility] [address] [id number] [address] [place] [address], [place] [address] 16 May, 2014 [facility] [address] [id number] [address] [place] [address], [place] [address] 15 May, 2014 [facility] [address] [id number] [address] [place] [address], [place] [address] 15 May, 2014 [facility] [address] [id number] [address] [place] [address], [place] [address] May, [facility] [address] [id number] [address] [place] [address], [place] [address] May, [facility] [address] [id number] [address] [place] [address], [place] [address] May, [facility] [address] [id number] [address] [place] [address], [place] [address] May, [facility] [address] [id number] [address] [place] [address], [place] [address] May, [facility] [address] [id number] [address] [place] [address], [place] [address] May, [facility] [address] [id number] [address] [place] [address], [place] [address] May, [facility] [address] [id number] [address] [place] [address], [place] [address] May, [facility] [address] [id number] [address] [place] [address], [place] [address] May, [facility] [address] [id number] [address] [place] [address], [place] [address] May, [facility] [address] [id number] [address] [place] [address], [place] [address] May, [facility] [address] [id number] [address] [place] [address], [place] [address] May, [facility] [address] [id number] [address] [place] [address], [place] [address] May, [facility] [address] [id number] [address] [place] [address], [place] [address] May, [facility] [address] [id number] [address] [place] [address], [place] [address] May, [facility] [address] [id number] [address] [place] [address], [place] [address] May, [facility] [address] [id number] [address] [place] [address], [place] [address] Apr, [facility] [address] [id number] [address] [place] [address], [place] [address] Apr, [facility] [address] [id number] [address] [place] [address], [place] [address] Apr, [facility] [address] [id number] [address] [place] [address], [place] [address] Apr, [facility] [address] [id number] [address] [place] [address], [place] [address] Apr, [facility] [address] [id number] [address] [place] [address], [place] [address] Apr, [facility] [address] [id number] [address] [place] [address], [place] [address] Apr, [facility] [address] [id number] [address] [place] [address], [place] [address] Apr, [facility] [address] [id number] [address] [place] [address], [place] [address] Apr, [facility] [address] [id number] [address] [place] [address], [place] [address] Apr, [facility] [address] [id number] [address] [place] [address], [place] [address] Mar, [facility] [address] [id number] [address] [place] [address], [place] [address] Mar, [facility] [address] [id number] [address] [place] [address], [place] [address] Mar, [facility] [address] [id number] [address] [place] [address], [place] [address] 31 Mar, 2013 [facility] [address] [id number] [address] [place] [address], [place] [address] Mar, [facility] [address] [id number] [address] [place] [address], [place] [address] 30 Mar, 2014 [facility] [address] [id number] [address] [place] [address], [place] [address] Mar, [facility] [address] [id number] [address] [place] [address], [place] [address] Mar, [facility] [address] [id number] [address] [place] [address], [place] [address] Mar, [facility] [address] [id number] [address] [place] [address], [place] [address] Mar, [facility] [address] [id number] [address] [place] [address] Mar, [facility] [address] [id number] [address] [place] [address] Mar, [facility] [address] [id number] [address] [place] [address] Mar, [facility] [address] [id number] [address] [place] [id number] Mar, 2013 [facility] [address] [id number] [address] [place] [id number] Mar, 2013 [facility] [address] [id number] [address] [place] [address] Mar, [facility] [address] [id number] [address] [place] [id number] Mar, [facility] [address] [id number] [address] [place] [id number] Mar, 2013 [facility] [address] [id number] [address] [place] [address], [place] [address] 02 Mar, 2013 [facility] [address] [id number] [address] [place] [address], [place] [address] 02 Mar, 2013 [facility] [address] [id number] [address] [place] [address], [place] [address] 05 Sep, 2013 [facility] [address] [id number] [address] [place] [address], [place] [address] 05 Sep, 2013 [facility] [address] [id number] [address] [place] [address], [place] [address] 04 Sep, 2013 [facility] [address] [id number] [address] [place] [address], [place] [address] 04 Sep, 2013 [facility] [address] [id number] [address] [place] [address], [place] [address] 03 Feb, 2013 [facility] [address] [id number] [address] [place] [address], [place] [address] 03 Feb, 2013 [facility] [address] [id number] [address] [place] [address], [place] [address] 02 Feb, 2013 [facility] [address] [id number] [address] [place] [address], [place] [address] Feb, 2013 [facility] [address] [id number] [address] [place] [address], [place] [address] 02 Feb, 2013 [facility] [address] [id number] [address] [place] [address], [place] [address] Feb, 2013 [facility] [address] [id number] [address] [place] [address], [place] [address] Jan, [facility] [address] [id number] [address] [place] [address], [place] [address] Jan, [facility] [address] [id number] [address] [place] [address], [place] [address] Jan, [facility] [address] [id number] [address] [place] [address], [place] [address] Jan, [facility] [address] [id number] [facility] [place] [address] Jan, [facility] [address] [id number] [address] [place] [address], [place] [address] Jan, [facility] [address] [id number] [address] [place] [address], [place] [address] Jan, [facility] [address] [id number] [address] [place] [address], [place] [address] Jan, [facility] [address] [id number] [address] [place] [address], [place] [address] Jan, [facility] [address] [id number] [address] [place] [address], [place] [address] Jan, [facility] [address] [id number] [address] [place] [address], [place] [address] Jan, [facility] [address] [id number] [address] [place] [address], [place] [address] Jan, [facility] [address] [id number] [address] [place] [address], [place] [address] Dec, [facility] [address] [id number] [address] [place] [address], [place] [address] Dec, [facility] [address] [id number] [address] [place] [address], [place] [address] Dec, [facility] [address] [id number] [address] [place] [address], [place] [address] Dec, [facility] [address] [id number] [address] [place] [address], [place] [address] Dec, [facility] [address] [id number] [address] [place] [address], [place] [address] Dec, [facility] [address] [id number] [address] [place] [address], [place] [address] Dec, [facility] [address] [id number] [address] [place] [address], [place] [address] Dec, [facility] [address] [id number] [facility] [place] [address] Dec, [facility] [address] [id number] [address] [place] [address], [place] [address] Dec, [facility] [address] [address] [id number] [address] [place] [address], [place] [address] Dec, [facility] [address] [id number] [address] [place] [address], [place] [address] Dec, [facility] [address] [id number] [address] [place] [address], [place] [address] Nov, [facility] [address] [id number] [address] [place] [address], [place] [address] Nov, [facility] [address] [id number] [address] [place] [address], [place] [address] Nov, [facility] [address] [id number] [address] [place] [address], [place] [address] Nov, [facility] [address] [id number] [address] [place] [address], [place] [address] Nov, [facility] [address] [id number] [address] [place] [address], [place] [address] Nov, [facility] [address] [id number] [address] [place] [address], [place] [address] Nov, [facility] [address] [id number] [address] [place] [address], [place] [address] Nov, [facility] [address] [id number] [address] [place] [address], [place] [address] Nov, [facility] [address] [id number] [address] [place] [address], [place] [address] Nov, [facility] [address] [id number] [address] [place] [address], [place] [address] Nov, [facility] [address] [id number] [facility] [place] [address] Nov, [facility] [address] [id number] [address] [place] [address], [place] [address] Nov, [facility] [address] [id number] [address] [place] [address], [place] [address] Nov, [facility] [address] [id number] [address] [place] [address], [place] [address] October, [facility] [address] [id number] [address] [place] [address], [place] [address] October, [facility] [address] [id number] [address] [place] [address], [place] [address] October, [facility] [address] [id number] [address] [place] [address], [place] [address] October, [facility] [address] [id number] [address] [place] [address], [place] [address] October, [facility] [address] [id number] [address] [place] [address], [place] [address] October, [facility] [address] [id number] [address] [place] [address], [place] [address] October, [facility] [address] [id number] [address] [place] [address], [place] [address] October, [facility] [address] [id number] [address] [place] [address], [place] [address] October, [facility] [address] [id number] [address] [place] [address], [place] [address] October, [facility] [address] [id number] [address] [place] [address], [place] [address] October, [facility] [address] [id number] [address] [place] [address], [place] [address] October, [facility] [address] [id number] [address] [place] [address], [place] [address] Sep, [facility] [address] [id number] [facility] [place] [address] Sep, [facility] [address] [id number] [address] [place] [address], [place] [address] Sep, [facility] [address] [id number] [facility] [place] [address] Sep, [facility] [address] [id number] [address] [place] [address], [place] [address] Sep, [facility] [address] [id number] [address] [place] [address], [place] [address] Sep, [facility] [address] [id number] [address] [place] [address], [place] [address] Aug, [facility] [address] [id number] [address] [place] [address], [place] [address] Aug, [facility] [address] [id number] [address] [place] [address], [place] [address] Aug, [facility] [address] [id number] [address] [place] [address], [place] [address] Aug, [facility] [address] [id number] [address] [place] [address], [place] [address] Aug, [facility] [address] [id number] [address] [place] [address], [place] [address] Aug, [facility] [address] [id number] [address] [place] [address], [place] [address] Jul, [facility] [address] [id number] [address] [place] [address], [place] [address] Jul, [facility] [address] [id number] [address] [place] [address], [place] [address] Jul, [facility] [address] [id number] [address] [place] [address], [place] [address] Jul, [facility] [address] [id number] [address] [place] [address], [place] [address] 13 Jul, 2013 [facility] [address] [id number] [address] [place] [address], [place] [address] Jul, [facility] [address] [id number] [address] [place] [address], [place] [address] Jul, [facility] [address] [id number] [address] [place] [address], [place] [address] Jul, [facility] [address] [id number] [address] [place] [address], [place] [address] Jul, [facility] [address] [id number] [address] [place] [address], [place] [address] Jul, [facility] [address] [id number] [address] [place] [address], [place] [address] Jun, [facility] [address] [id number] [address] [place] [address], [place] [address] Jun, [facility] [address] [id number] [address] [place] [address], [place] [address] Jun, [facility] [address] [id number] [address] [place] [address], [place] [address] Jun, [facility] [address] [id number] [address] [place] [address], [place] [address] Jun, [facility] [address] [id number] [address] [place] [address], [place] [address] Jun, [facility] [address] [id number] [address] [place] [address], [place] [address] Jun, [facility] [address] [id number] [address] [place] [address], [place] [address] Jun, [facility] [address] [id number] [address] [place] [address], [place] [address] May, [facility] [address] [id number] [address] [place] [address], [place] [address] May, [facility] [address] [id number] [address] [place] [address], [place] [address] May, [facility] [address] [id number] [address] [place] [address], [place] [address] May, [facility] [address] [id number] [address] [place] [address], [place] [address] May, [facility] [address] [id number] [address] [place] [address], [place] [address] May, [facility] [address] [id number] [address] [place] [address], [place] [address] May, [facility] [address] [id number] [address] [place] [address], [place] [address] May, [facility] [address] [id number] [address] [place] [address], [place] [address] Apr, [facility] [address] [id number] [address] [place] [address] Apr, [facility] [address] [id number] [address] [place] [address], [place] [address] Apr, [facility] [address] [id number] [address] [place] [address] Apr, [facility] [address] [id number] [address] [place] [address] Apr, [facility] [address] [id number] [address] [place] [address] Apr, [facility] [address] [id number] [address] [place] [address], [place] [address] Mar, [facility] [address] [id number] [address] [place] [address] Mar, [facility] [address] [id number] [address] [place] [address], [place] [address] Mar, [facility] [address] [id number] [address] [place] [address], [place] [address] Mar, [facility] [address] [id number] [address] [place] [address], [place] [address] Mar, [facility] [address] [id number] [address] [place] [address], [place] [address] Mar, [facility] [address] [id number] [address] [place] [address], [place] [address] Mar, [facility] [address] [id number] [address] [place] [address], [place] [address] 30 Feb, 2012 [facility] [address] [id number] [address] [place] [address], [place] [address] 30 Feb, 2013 [facility] [address] [id number] [address] [place] [address], [place] [address] 27 Feb, 2013 [facility] [address] [id number] [address] [place] [address], [place] [address] Feb, 2012 [facility] [address] [id number] [address] [place] [address], [place] [address] Feb, [facility] [address] [id number] [address] [place] [address], [place] [address] Feb, [facility] [address] [id number] [address] [place] [address], [place] [address] Jan, [facility] [address] [id number] [address] [place] [address], [place] [address] Jan, [facility] [address] [id number] [address] [place] [address], [place] [address] Jan, [facility] [address] [id number] [address] [place] [address], [place] [address] Jan, [facility] [address] [id number] [address] [place] [address], [place] [address] Jan, [facility] [address] [id number] [address] [place] [address], [place] [address] Jan, [facility] [address] [id number] [address] [place] [address], [place] [address] Jan, [facility] [address] [id number] [address] [place] [address], [place] [address] Jan, [facility] [address] [id number] [address] [place] [address], [place] [address] Jan, [facility] [address] [id number] [address] [place] [address], [place] [address] Dec, [facility] [address] [id number] [address] [place] [address], [place] [address] Dec, [facility] [address] [id number] [address] [place] [address], [place] [address] Dec, [facility] [address] [id number] [address] [place] [address], [place] [address] Dec, [facility] [address] [id number] [address] [place] [address], [place] [address] Dec, [facility] [address] [id number] [address] [place] [address], [place] [address] Dec, [facility] [address] [id number] [address] [place] [address], [place] [address] Dec, [facility] [address] [id number] [address] [place] [address], [place] [address] Dec, [facility] [address] [id number] [address] [place] [address], [place] [address] Dec, [facility] [address] [id number] [address] [place] [address], [place] [address] Dec, [facility] [address] [id number] [address] [place] [address], [place] [address] Dec, [facility] [address] [id number] [address] [place] [address], [place] [address] Dec, [facility] [address] [id number] [address] [place] [address], [place] [address] Dec, [facility] [address] [id number] [address] [place] [address], [place] [address] Nov, [facility] [address] [id number] [address] [place] [address], [place] [address] Nov, [facility] [address] [id number] [address] [place] [address], [place] [address] Nov, [facility] [address] [id number] [address] [place] [address], [place] [address] Nov, [facility] [address] [id number] [address] [place] [address], [place] [address] October, [facility] [address] [id number] [address] [place] [address], [place] [address] October, [facility] [address] [id number] [address] [place] [address], [place] [address] October, [facility] [address] [id number] [address] [place] [address], [place] [address] October, [facility] [address] [id number] [address] [place] [address], [place] [address] October, [facility] [address] [id number] [address] [place] [address], [place] [address] October, [facility] [address] [id number] [address] [place] [address], [place] [address] Sep, [facility] [address] [id number] [address] [place] [address], [place] [address] Sep, [facility] [address] [id number] [address] [place] [address], [place] [address] Sep, [facility] [address] [id number] [address] [place] [address], [place] [address] Sep, [facility] [address] [id number] [address] [place] [address], [place] [address] Sep, [facility] [address] [id number] [facility] [place] [address] 16 Sep, 2012 [facility] [address] [id number] [address] [place] [address], [place] [address] 12 Sep, 2012 [facility] [address] [id number] [address] [place] [address], [place] [address] Sep, [facility] [address] [id number] [address] [place] [address], [place] [address] Sep, [facility] [address] [id number] [address] [place] [address], [place] [address] Sep, [facility] [address] [id number] [address] [place] [address], [place] [address] Sep, [facility] [address] [id number] [address] [place] [address], [place] [address] Aug, [facility] [address] [id number] [address] [place] [address], [place] [address] 25 Aug, 2012 [facility] [address] [id number] [address] [place] [address], [place] [address] 25 Aug, 2012 [facility] [address] [id number] [address] [place] [address], [place] [address] 21 Aug, 2012 [facility] [address] [id number] [address] [place] [address], [place] [address] 19 Aug, 2012 [facility] [address] [id number] [address] [place] [address], [place] [address] 18 Aug, 2012 [facility] [address] [id number] [address] [place] [address], [place] [address] 17 Aug, 2012 [facility] [address] [id number] [address] [place] [address], [place] [address] 15 Aug, 2012 [facility] [address] [id number] [address] [place] [address], [place] [address] 15 Aug, 2012 [facility] [address] [id number] [address] [place] [address], [place] [address] Aug, [facility] [address] [id number] [address] [place] [address], [place] [address] Aug, [facility] [address] [id number] [address] [place] [address], [place] [address] Aug, [facility] [address] [id number] [address] [place] [address], [place] [address] Jul, [facility] [address] [id number] [address] [place] [address], [place] [address] Jul, [facility] [address] [id number] [address] [place] [address], [place] [address] Jul, [facility] [address] [id number] [address] [place] [address], [place] [address] Jul, [facility] [address] [id number] [address] [place] [address], [place] [address] Jul, [facility] [address] [id number] [address] [place] [address], [place] [address] Jul, [facility] [address] [id number] [address] [place] [address], [place] [address] Jul, [facility] [address] [id number] [address] [place] [address], [place] [address] Jul, [facility] [address] [id number] [address] [place] [address], [place] [address] Jul, [facility] [address] [id number] [address] [place] [address], [place] [address] Jul, [facility] [address] [id number] [address] [place] [address], [place] [address] May, [facility] [address] [id number] [place] [id number] May, [facility] [address] [id number] [address] [place] [address], [place] [address] May, [facility] [address] [id number] [address] [place] [address] May, [facility] [address] [facility] [id number] [address] [place] [address] May, [facility] [address] [facility] [id number] [address] [place] [address] Apr, [facility] [address] [id number] [place] [id number] Apr, [facility] [address] [facility] [id number] [address] [place] [address] Apr, [facility] [address] [facility] [id number] [address] [place] [address] Mar, [facility] [address] [id number] [place] [id number] Mar, [facility] [address] [facility] [id number] [address] [place] [phone] Mar, [facility] [address] [id number] [place] [id number] Feb, [facility] [address] [facility] [id number] [address] [place] [phone] Feb, [facility] [address] [facility] [id number] [address] [place] [id number] Feb, [facility] [address] [id number] [place] [id number] Feb, [facility] [address] [id number] [place] [id number] Feb, [facility] [address] [id number] [place] [id number] Jan, [facility] [address] [id number] [address] [place] [address], [place] [address] Jan, [facility] [address] [id number] [place] [id number] Jan, [facility] [address] [id number] [place] [id number] Jan, [facility] [address] [id number] [place] [id number] Jan, [facility] [address] [facility] [id number] [address] [place] [address], [place] [address] Jan, [facility] [address] [facility] [id number] [address] [place] [address], [place] [address] Jan, [facility] [address] [facility] [id number] [address] [place] [address], [place] [address] Aug, [facility] [address] [id number] [place] [id number] Aug, [facility] [address] [facility] [id number] [address] [place] [address], [place] [address] Jul, [facility] [address] [facility] [id number] [address] [place] [address], [place] [address] Jul, [facility] [address] [facility] [id number] [address] [place] [address], [place] [address] Jul, [facility] [address] [id number] [place] [id number] Jul, [facility] [address] [facility] [id number] [address] [place] [address], [place] [address] Jul, [facility] [address] [id number] [place] [id number] Jul, [facility] [address] [facility] [id number] [address] [place] [address], [place] [address] Jul, [facility] [address] [id number] [place] [id number] Jul, [facility] [address] [id number] [place] [id number] Jul, [facility] [address] [id number] [place] [id number] Jul, [facility] [address] [facility] [id number] [address] [place] [address], [place] [address] May, [facility] [address] [id number] [address] [place] [id number] May, [facility] [address] [id number] [address] [place] [id number] May, [facility] [address] [id number] [address] [place] [phone] Apr, [facility] [address] [id number] [address] [place] [phone] Jan, [facility] [address] [id number] [address] [place] [id number] Jan, [facility] [address] [id number] [address] [place] [phone] Dec, [facility] [address] [id number] [address] [place] [id number] Dec, [facility] [address] [id number] [address] [place] [id number] May, [facility] [address] [id number] [address] [place] [phone] Mar, [facility] [address] [id number] [address] [place] [id number] Mar, [facility] [address] [id number] [address] [place] [id number] Jan, IMMUNIZATIONS No Known Immunizations SOCIAL HISTORY [...]
--- OUTSIDE RECORDS SUMMARY | 2020-01-28 12:25 | XMS REPORT ---
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 Active 560576951 Problem History of venous thromboembolism V12.51 Active 629876039 Problem Cellulitis of unspecified part of limb L03.119 Active 142144966 Problem Gastroesophageal reflux disease without esophagitis K21.9 Active 812319772 Problem History of pulmonary embolism Z86.711 Active 492220528 Problem Pseudotumor cerebri G93.2 Active 16248063 Problem History of DVT (deep vein thrombosis) Z86.718 Active 406771583 ALLERGIES No Information ENCOUNTERS Encounter Location Date Diagnosis [place] [id number] [facility] [id number] [address] [place] [id number] Apr, skilled nursing (current) use of 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 Z79.01 [facility] [address] [facility] [id number] [address] [place] [id number] Apr, skilled nursing 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.01 [facility] [address] [facility] [id number] [address] [place] [phone] Apr, Cellulitis of unspecified pa rt of limb L03.119 ; Allergic contact dermatitis due to adhesives L23.1 and Chronic pain syndrome G89.4 [facility] [address] [facility] [id number] [address] [place] [address] Apr, [place] [address] [place] [id number] [address] [place] [id number] Apr, 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 ; Cellulitis of unspecified part of limb L03.119 ; Chronic pain syndrome G89.4 and Anxiety F41.9 [facility] [address] [place] [id number] [address] [place] [id number] 16 Apr, 2015 [facility] [address] [place] [id number] [place] [id number] Apr, [place] [address] [place] [id number] [place] [phone] Mar, [place] [address] [address] Mar, [place] [address] [address] Mar, Sore throat J02.9 ; Gastroes ophageal reflux disease without esophagitis K21.9 ; Pseudotumor cerebri G93.2 ; Chronic pain syndrome G89.4 ; Choriocarcinoma C58 ; History of pulmonary embolism Z86.711 ; History of DVT (deep vein thrombosis) Z86.718 ; Anxiety F41.9 and Tachycardia R00.0 [place] [address] [address] Feb, Anxiety 300.00 and Chronic p ain 338.29 [place] [address] [place] [id number] [address] [place] [phone] Feb, [place] [address] [place] [id number] [address] [place] [phone] Feb, [place] [address] [address] Jan, 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.61 and Dysuria 788.1 [place] [address] [place] [id number] [place] [address] Jan, Dysuria 788.1 [facility] [address] [place] [id number] [address] [place] [address] Jan, Anxiety 300.00 and Chronic p ain 338.29 [facility] [address] [place] [id number] [place] [phone] Jan, [facility] [address] [address] Jan, [facility] [address] [address] Jan, [place] [address] [address] Dec, Weakness 780.79 [place] [address] [address] Dec, skilled nursing 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 therapy V58.61 [place] [address] [address] Dec, Palpitations 785.1 ; Tremor 781.0 ; Weakness 780.79 ; skilled nursing 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 therapy V58.61 and Yeast vaginitis 112.1 [place] [address] [place] [id number] [address] [place] [phone] Dec, [place] [address] [address] Dec, Cervicalgia 723.1 ; Tachycar yoseph 785.0 ; Pseudotumor cerebri 348.2 and History of venous thromboembolism V12.51 [place] [address] [address] Nov, [place] [address] [address] Nov, [place] [address] [address] Nov, Tachycardia 785.0 ; Pseudotu mor cerebri 348.2 ; Anxiety 300.00 and History of venous thromboembolism V12.51 [facility] [address] [id number] [address] [place] [phone] Nov, [facility] [address] [id number] [address] [place] [phone] 18 Nov, 2014 [facility] [address] [id number] [address] [place] [phone] Nov, [facility] [address] [id number] [address] [place] [phone] Nov, [facility] [address] [facility] [id number] [address] [place] [address] Nov, [facility] [address] [facility] [id number] [address] [place] [phone] Nov, [facility] [address] [facility] [id number] [address] [place] [phone] Nov, [facility] [address] [facility] [id number] [address] [place] [phone] October, [facility] [address] [facility] [id number] [address] [place] [phone] October, [facility] [address] [place] [id number] [address] [place] [phone] October, Pain in thoracic spine 724.1 and Tachycardia 785.0 [facility] [address] [id number] [address] [place] [phone] October, [facility] [address] [id number] [address] [place] [phone] October, [facility] [address] [facility] [id number] [address] [place] [address] 14 Sep, 2014 [facility] [address] [facility] [id number] [address] [place] [phone] Sep, [facility] [address] [id number] [facility] [place] [address] Aug, [facility] [address] [id number] [address] [place] [address], [place] [address] Aug, [facility] [address] [id number] [address] [place] [address], [place] [address] Aug, [facility] [address] [id number] [address] [place] [address], [place] [address] Aug, [facility] [address] [id number] [address] [place] [address], [place] [id number] Aug, [facility] [address] [id number] [address] [place] [address], [place] [address] Aug, [facility] [address] [id number] [address] [place] [address], [place] [address] Aug, [facility] [address] [id number] [address] [place] [address], [place] [address] Aug, [facility] [address] [id number] [address] [place] [address], [place] [address] Aug, [facility] [address] [id number] [address] [place] [address], [place] [address] Aug, [facility] [address] [id number] [address] [place] [address], [place] [address] Aug, [facility] [address] [id number] [address] [place] [address], [place] [address] Aug, 2014 [facility] [address] [id number] [address] [place] [address], [place] [address] Jul, [facility] [address] [id number] [address] [place] [address], [place] [address] Jul, [facility] [address] [id number] [address] [place] [address], [place] [address] Jul, [facility] [address] [id number] [address] [place] [address], [place] [address] Jul, [facility] [address] [id number] [address] [place] [address], [place] [address] 23 Jul, 2014 [facility] [address] [id number] [address] [place] [address], [place] [address] 23 Jul, 2014 [facility] [address] [id number] [address] [place] [address], [place] [address] 23 Jul, 2014 [facility] [address] [id number] [address] [place] [address], [place] [address] 23 Jul, 2014 [facility] [address] [id number] [address] [place] [address], [place] [address] 20 Jul, 2014 [facility] [address] [id number] [address] [place] [address], [place] [address] 20 Jul, 2014 [facility] [address] [id number] [address] [place] [address], [place] [id number] 19 Jul, 2014 [facility] [address] [id number] [address] [place] [address], [place] [address] 19 Jul, 2014 [facility] [address] [id number] [address] [place] [address], [place] [address] 17 Jul, 2014 [facility] [address] [id number] [address] [place] [address], [place] [address] 17 Jul, 2014 [facility] [address] [id number] [address] [place] [address], [place] [address] 16 Jul, 2014 [facility] [address] [id number] [address] [place] [address], [place] [address] 16 Jul, 2014 [facility] [address] [id number] [address] [place] [address], [place] [address] 16 Jul, 2014 [facility] [address] [id number] [address] [place] [id number] 16 Jul, 2014 [facility] [address] [id number] [address] [place] [id number] 13 Jul, 2014 [facility] [address] [id number] [address] [place] [address], [place] [address] Jul, [facility] [address] [id number] [address] [place] [address], [place] [address] Jul, [facility] [address] [id number] [address] [place] [address], [place] [address] Jul, 2014 [facility] [address] [id number] [address] [place] [address], [place] [address] Jul, 2014 [facility] [address] [id number] [address] [place] [address], [place] [address] Jul, [facility] [address] [id number] [address] [place] [address], [place] [address] Jul, [facility] [address] [id number] [address] [place] [address], [place] [address] Jul, [facility] [address] [id number] [address] [place] [address], [place] [address] Jul, [facility] [address] [id number] [address] [place] [address], [place] [address] Jul, [facility] [address] [id number] [address] [place] [address], [place] [address] Jul, [facility] [address] [id number] [address] [place] [address], [place] [address] Jul, [facility] [address] [id number] [address] [place] [address], [place] [address] Jun, [facility] [address] [id number] [address] [place] [address], [place] [address] Jun, [facility] [address] [id number] [address] [place] [address], [place] [address] Jun, [facility] [address] [id number] [address] [place] [address], [place] [id number] Jun, [facility] [address] [id number] [address] [place] [address], [place] [address] Jun, [facility] [address] [id number] [address] [place] [address], [place] [address] Jun, [facility] [address] [id number] [address] [place] [address], [place] [address] Jun, [facility] [address] [id number] [address] [place] [address], [place] [address] Jun, [facility] [address] [id number] [address] [place] [address], [place] [id number] Jun, [facility] [address] [id number] [address] [place] [address], [place] [address] Jun, [facility] [address] [id number] [address] [place] [address], [place] [address] Jun, [facility] [address] [id number] [address] [place] [address], [place] [address] Jun, [facility] [address] [id number] [address] [place] [address], [place] [address] Jun, [facility] [address] [id number] [address] [place] [address], [place] [address] Jun, [facility] [address] [id number] [address] [place] [address], [place] [address] Jun, [facility] [address] [id number] [address] [place] [address], [place] [address] Jun, [facility] [address] [id number] [address] [place] [address], [place] [address] Jun, [facility] [address] [id number] [address] [place] [address], [place] [address] Jun, [facility] [address] [id number] [address] [place] [address], [place] [address] Jun, [facility] [address] [id number] [address] [place] [address], [place] [address] Jun, [facility] [address] [id number] [address] [place] [address], [place] [address] May, [facility] [address] [id number] [address] [place] [address], [place] [address] May, [facility] [address] [id number] [address] [place] [address], [place] [address] May, [facility] [address] [id number] [address] [place] [address], [place] [address] May, [facility] [address] [id number] [address] [place] [address], [place] [address] May, [facility] [address] [id number] [address] [place] [address], [place] [address] May, [facility] [address] [id number] [address] [place] [address], [place] [address] May, [facility] [address] [id number] [address] [place] [address], [place] [address] May, [facility] [address] [id number] [address] [place] [address], [place] [address] May, [facility] [address] [id number] [address] [place] [address], [place] [address] May, [facility] [address] [id number] [address] [place] [address], [place] [address] May, [facility] [address] [id number] [address] [place] [address], [place] [address] 18 May, 2014 [facility] [address] [id number] [address] [place] [address], [place] [address] 18 May, 2014 [facility] [address] [id number] [address] [place] [address], [place] [address] 17 May, 2014 [facility] [address] [id number] [address] [place] [address], [place] [address] 16 May, 2014 [facility] [address] [id number] [address] [place] [address], [place] [address] 16 May, 2014 [facility] [address] [id number] [address] [place] [address], [place] [address] 15 May, 2014 [facility] [address] [id number] [address] [place] [address], [place] [address] 15 May, 2014 [facility] [address] [id number] [address] [place] [address], [place] [address] May, [facility] [address] [id number] [address] [place] [address], [place] [address] May, [facility] [address] [id number] [address] [place] [address], [place] [address] May, [facility] [address] [id number] [address] [place] [address], [place] [address] May, [facility] [address] [id number] [address] [place] [address], [place] [address] May, [facility] [address] [id number] [address] [place] [address], [place] [address] May, [facility] [address] [id number] [address] [place] [address], [place] [address] May, [facility] [address] [id number] [address] [place] [address], [place] [address] May, [facility] [address] [id number] [address] [place] [address], [place] [address] May, [facility] [address] [id number] [address] [place] [address], [place] [address] May, [facility] [address] [id number] [address] [place] [address], [place] [address] May, [facility] [address] [id number] [address] [place] [address], [place] [address] May, [facility] [address] [id number] [address] [place] [address], [place] [address] May, [facility] [address] [id number] [address] [place] [address], [place] [address] May, [facility] [address] [id number] [address] [place] [address], [place] [address] May, [facility] [address] [id number] [address] [place] [address], [place] [address] May, [facility] [address] [id number] [address] [place] [address], [place] [id number] Apr, [facility] [address] [id number] [address] [place] [address], [place] [address] Apr, [facility] [address] [id number] [address] [place] [address], [place] [id number] Apr, [facility] [address] [id number] [address] [place] [address], [place] [address] Apr, [facility] [address] [id number] [address] [place] [address], [place] [address] Apr, [facility] [address] [id number] [address] [place] [address], [place] [address] Apr, [facility] [address] [id number] [address] [place] [address], [place] [address] Apr, [facility] [address] [id number] [address] [place] [address], [place] [address] Apr, [facility] [address] [id number] [address] [place] [address], [place] [address] Apr, [facility] [address] [id number] [address] [place] [address], [place] [address] Apr, [facility] [address] [id number] [address] [place] [address], [place] [address] Mar, [facility] [address] [id number] [address] [place] [address], [place] [id number] Mar, [facility] [address] [id number] [address] [place], [place] [address] [address] Mar, [facility] [address] [id number] [address] [place] [address], [place] [id number] 31 Mar, 2013 [facility] [address] [id number] [address] [place] [address], [place] [id number] Mar, [facility] [address] [id number] [address] [place] [address], [place] [id number] 30 Mar, 2014 [facility] [address] [id number] [address] [place] [address], [place] [id number] Mar, [facility] [address] [id number] [address] [place] [address], [place] [id number] Mar, [facility] [address] [id number] [address] [place] [address], [place] [id number] Mar, [facility] [address] [id number] [address] [place] [address], [place] [id number] Mar, [facility] [address] [id number] [address] [place] [id number] Mar, [facility] [address] [id number] [address] [place] [id number] Mar, [facility] [address] [id number] [address] [place] [id number] Mar, [facility] [address] [id number] [address] [place] [id number] Mar, 2013 [facility] [address] [id number] [address] [place] [id number] Mar, 2013 [facility] [address] [id number] [address] [place] [id number] Mar, [facility] [address] [id number] [address] [place] [id number] Mar, [facility] [address] [id number] [address] [place] [id number] Mar, 2013 [facility] [address] [id number] [address] [place] [address], [place] [id number] 02 Mar, 2013 [facility] [address] [id number] [address] [place] [address], [place] [id number] 02 Mar, 2013 [facility] [address] [id number] [address] [place] [address], [place] [id number] 05 Sep, 2013 [facility] [address] [id number] [address] [place] [address], [place] [id number] 05 Sep, 2013 [facility] [address] [id number] [address] [place] [address], [place] [id number] 04 Sep, 2013 [facility] [address] [id number] [address] [place] [address], [place] [id number] 04 Sep, 2013 [facility] [address] [id number] [address] [place] [address], [place] [id number] 03 Feb, 2013 [facility] [address] [id number] [address] [place] [address], [place] [id number] 03 Feb, 2013 [facility] [address] [id number] [address] [place] [address], [place] [id number] 02 Feb, 2013 [facility] [address] [id number] [address] [place] [address], [place] [id number] Feb, 2013 [facility] [address] [id number] [address] [place] [address], [place] [id number] 02 Feb, 2013 [facility] [address] [id number] [address] [place] [address], [place] [id number] Feb, 2013 [facility] [address] [id number] [address] [place] [address], [place] [id number] Jan, [facility] [address] [id number] [address] [place] [address], [place] [id number] Jan, [facility] [address] [id number] [address] [place] [address], [place] [id number] Jan, [facility] [address] [id number] [address] [place] [address], [place] [id number] Jan, [facility] [address] [id number] [facility] [place] [id number] Jan, [facility] [address] [id number] [address] [place] [address], [place] [id number] Jan, [facility] [address] [id number] [address] [place] [address], [place] [id number] Jan, [facility] [address] [id number] [address] [place] [address], [place] [id number] Jan, [facility] [address] [id number] [address] [place] [address], [place] [address] Jan, [facility] [address] [id number] [address] [place] [address], [place] [id number] Jan, [facility] [address] [id number] [place] [address], [place] [address] Jan, [facility] [address] [id number] [address] [place] [address], [place] [id number] Jan, [facility] [address] [id number] [address] [place] [address], [place] [address] Dec, [facility] [address] [id number] [address] [place] [address], [place] [id number] Dec, [facility] [address] [id number] [address] [place] [address], [place] [id number] Dec, [facility] [address] [id number] [address] [place] [address], [place] [id number] Dec, [facility] [address] [id number] [address] [place] [address], [place] [address] Dec, [facility] [address] [id number] [address] [place] [address], [place] [id number] Dec, [facility] [address] [id number] [address] [place] [address], [place] [address] Dec, [facility] [address] [id number] [address] [place] [address], [place] [id number] Dec, [facility] [address] [id number] [facility] [id number] Dec, [facility] [address] [id number] [address] [place] [address], [place] [id number] Dec, [facility] [address] [id number] [address] [place] [address], [place] [id number] Dec, [facility] [address] [id number] [address] [place] [address], [place] [address] Dec, [facility] [address] [id number] [address] [place] [address], [place] [address] Nov, [facility] [address] [id number] [address] [place] [address], [place] [id number] Nov, [facility] [address] [id number] [address] [place] [address], [place] [address] Nov, [facility] [address] [id number] [address] [place] [address], [place] [address] Nov, [facility] [address] [id number] [address] [place] [address], [place] [address] Nov, [facility] [address] [id number] [address] [place] [address], [place] [address] Nov, [facility] [address] [id number] [address] [place] [address], [place] [address] Nov, [facility] [address] [id number] [address] [place] [address], [place] [address] Nov, [facility] [address] [id number] [address] [place] [address], [place] [address] Nov, [facility] [address] [id number] [address] [place] [address], [place] [address] Nov, [facility] [address] [id number] [address] [place] [address], [place] [id number] Nov, [facility] [address] [id number] [facility] [place] [address] Nov, [facility] [address] [id number] [address] [place] [address], [place] [id number] Nov, [facility] [address] [id number] [address] [place] [address], [place] [address] Nov, [facility] [address] [id number] [address] [place] [address], [place] [id number] October, [facility] [address] [id number] [address] [place] [address], [place] [address] October, [facility] [address] [id number] [address] [place] [address], [place] [id number] October, [facility] [address] [id number] [address] [place] [address], [place] [id number] October, [facility] [address] [id number] [address] [place] [address], [place] [address] October, [facility] [address] [id number] [address] [place] [address], [place] [id number] October, [facility] [address] [id number] [address] [place] [address], [place] [id number] October, [facility] [address] [id number] [address] [place] [address], [place] [address] October, [facility] [address] [id number] [address] [place] [address], [place] [address] October, [facility] [address] [id number] [address] [place] [address], [place] [address] October, [facility] [address] [id number] [address] [place] [address], [place] [address] October, [facility] [address] [id number] [address] [place] [address], [place] [address] October, [facility] [address] [id number] [address] [place] [address], [place] [id number] Sep, [facility] [address] [id number] [facility] [address] Sep, [facility] [address] [id number] [address] [place] [address], [place] [address] Sep, [facility] [address] [id number] [facility] [address] Sep, [facility] [address] [id number] [address] [place] [address], [place] [id number] Sep, [facility] [address] [id number] [address] [place] [address], [place] [address] Sep, [facility] [address] [id number] [address] [place] [address], [place] [address] Aug, [facility] [address] [id number] [address] [place] [address], [place] [address] Aug, [facility] [address] [id number] [address] [place] [address], [place] [address] Aug, [facility] [address] [id number] [address] [place] [address], [place] [address] Aug, [facility] [address] [id number] [address] [place] [address], [place] [address] Aug, [facility] [address] [id number] [address] [place] [address], [place] [address] Aug, [facility] [address] [id number] [address] [place] [address], [place] [id number] Jul, [facility] [address] [id number] [address] [place] [address], [place] [address] Jul, [facility] [address] [id number] [address] [place] [address], [place] [address] Jul, [facility] [address] [id number] [address] [place] [address], [place] [address] Jul, [facility] [address] [id number] [address] [place] [address], [place] [id number] 13 Jul, 2013 [facility] [address] [id number] [address] [place] [address], [place] [address] Jul, [facility] [address] [id number] [address] [place] [address], [place] [address] Jul, [facility] [address] [id number] [address] [place] [address], [place] [address] Jul, [facility] [address] [id number] [address] [place] [address], [place] [id number] Jul, [facility] [address] [id number] [address] [place] [address], [place] [address] Jul, [facility] [address] [id number] [address] [place] [address], [place] [address] Jun, [facility] [address] [id number] [address] [place] [address], [place] [id number] Jun, [facility] [address] [id number] [address] [place] [address], [place] [id number] Jun, [facility] [address] [id number] [address] [place] [address], [place] [address] Jun, [facility] [address] [id number] [address] [place] [address], [place] [address] Jun, [facility] [address] [id number] [address] [place] [address], [place] [address] Jun, [facility] [address] [id number] [address] [place] [address], [place] [id number] Jun, [facility] [address] [id number] [address] [place] [address], [place] [id number] Jun, [facility] [address] [id number] [address] [place] [address], [place] [address] May, [facility] [address] [id number] [address] [place] [address], [place] [address] May, [facility] [address] [id number] [address] [place] [address], [place] [address] May, [facility] [address] [id number] [address] [place] [address], [place] [address] May, [facility] [address] [id number] [address] [place] [address], [place] [id number] May, [facility] [address] [id number] [address] [place] [address], [place] [address] May, [facility] [address] [id number] [address] [place] [address], [place] [address] May, [facility] [address] [id number] [address] [place] [address], [place] [address] May, [facility] [address] [id number] [address] [place] [address], [place] [address] Apr, [facility] [address] [id number] [address] [place] [id number] Apr, [facility] [address] [id number] [address] [place] [address], [place] [address] Apr, [facility] [address] [id number] [address] [place] [id number] Apr, [facility] [address] [id number] [address] [place] [id number] Apr, [facility] [address] [id number] [address] [place] [id number] Apr, [facility] [address] [id number] [address] [place] [address], [place] [id number] Mar, [facility] [address] [id number] [address] [place] [id number] Mar, [facility] [address] [id number] [address] [place] [address], [place] [address] Mar, [facility] [address] [id number] [address] [place] [address], [place] [id number] Mar, [facility] [address] [id number] [address] [place] [address], [place] [address] Mar, [facility] [address] [id number] [address] [place] [address], [place] [id number] Mar, [facility] [address] [id number] [address] [place] [address], [place] [address] Mar, [facility] [address] [id number] [address] [place] [address], [place] [id number] 30 Feb, 2012 [facility] [address] [id number] [address] [place] [address], [place] [id number] 30 Feb, 2013 [facility] [address] [id number] [address] [place] [address], [place] [id number] 27 Feb, 2013 [facility] [address] [id number] [address] [place] [address], [place] [address] Feb, 2012 [facility] [address] [id number] [address] [place] [address], [place] [address] Feb, [facility] [address] [id number] [address] [place] [address], [place] [id number] Feb, [facility] [address] [id number] [address] [place] [address], [place] [id number] Jan, [facility] [address] [id number] [address] [place] [address], [place] [id number] Jan, [facility] [address] [id number] [address] [place] [address], [place] [id number] Jan, [facility] [address] [id number] [address] [place] [address], [place] [address] Jan, [facility] [address] [id number] [address] [place] [address], [place] [id number] Jan, [facility] [address] [id number] [address] [place] [address], [place] [address] Jan, [facility] [address] [id number] [address] [place] [address], [place] [address] Jan, [facility] [address] [id number] [address] [place] [address], [place] [address] Jan, [facility] [address] [id number] [address] [place] [address], [place] [id number] Jan, [facility] [address] [id number] [address] [place] [address], [place] [address] Dec, [facility] [address] [id number] [address] [place] [address], [place] [address] Dec, [facility] [address] [id number] [address] [place] [address], [place] [id number] Dec, [facility] [address] [id number] [address] [place] [address], [place] [address] Dec, [facility] [address] [id number] [address] [place] [address], [place] [id number] Dec, [facility] [address] [id number] [address] [place] [address], [place] [address] Dec, [facility] [address] [id number] [address] [place] [address], [place] [id number] Dec, [facility] [address] [id number] [address] [place] [address], [place] [address] Dec, [facility] [address] [id number] [address] [place] [address], [place] [id number] Dec, [facility] [address] [id number] [address] [place] [address], [place] [address] Dec, [facility] [address] [id number] [address] [place] [address], [place] [id number] Dec, [facility] [address] [id number] [address] [place] [address], [place] [id number] Dec, [facility] [address] [id number] [address] [place] [address], [place] [id number] Dec, [facility] [address] [id number] [address] [place] [address], [place] [address] Nov, [facility] [address] [id number] [address] [place] [address], [place] [id number] Nov, [facility] [address] [id number] [address] [place] [address], [place] [id number] Nov, [facility] [address] [id number] [address] [place] [address], [place] [address] Nov, [facility] [address] [id number] [address] [place] [address], [place] [id number] October, [facility] [address] [id number] [address] [place] [address], [place] [address] October, [facility] [address] [id number] [address] [place] [address], [place] [address] October, [facility] [address] [id number] [address] [place] [address], [place] [address] October, [facility] [address] [id number] [address] [place] [address], [place] [id number] October, [facility] [address] [id number] [address] [place] [address], [place] [id number] October, [facility] [address] [id number] [address] [place] [address], [place] [id number] Sep, [facility] [address] [id number] [address] [place] [address], [place] [id number] Sep, [facility] [address] [id number] [address] [place] [address], [place] [id number] Sep, [facility] [address] [id number] [address] [place] [address], [place] [id number] Sep, [facility] [address] [id number] [address] [place] [address], [place] [id number] Sep, [facility] [address] [id number] [facility] [id number] 16 Sep, 2012 [facility] [address] [id number] [address] [place] [address], [place] [id number] 12 Sep, 2012 [facility] [address] [id number] [address] [place] [address], [place] [address] Sep, [facility] [address] [id number] [address] [place] [address], [place] [id number] Sep, [facility] [address] [id number] [address] [place] [address], [place] [id number] Sep, [facility] [address] [id number] [address] [place] [address], [place] [id number] Sep, [facility] [address] [id number] [address] [place] [address], [place] [address] Aug, [facility] [address] [id number] [address] [place] [address], [place] [id number] 25 Aug, 2012 [facility] [address] [id number] [address] [place] [address], [place] [id number] 25 Aug, 2012 [facility] [address] [id number] [address] [place] [address], [place] [id number] 21 Aug, 2012 [facility] [address] [id number] [address] [place] [address], [place] [id number] 19 Aug, 2012 [facility] [address] [id number] [address] [place] [address], [place] [id number] 18 Aug, 2012 [facility] [address] [id number] [address] [place] [address], [place] [id number] 17 Aug, 2012 [facility] [address] [id number] [address] [place] [address], [place] [id number] 15 Aug, 2012 [facility] [address] [id number] [address] [place] [address], [place] [id number] 15 Aug, 2012 [facility] [address] [id number] [address] [place] [address], [place] [id number] Aug, [facility] [address] [id number] [address] [place] [address], [place] [id number] Aug, [facility] [address] [id number] [address] [place] [address], [place] [id number] Aug, [facility] [address] [id number] [address] [place] [address], [place] [id number] Jul, [facility] [address] [id number] [address] [place] [address], [place] [id number] Jul, [facility] [address] [id number] [address] [place] [address], [place] [id number] Jul, [facility] [address] [id number] [address] [place] [address], [place] [id number] Jul, [facility] [address] [id number] [address] [place] [address], [place] [id number] Jul, [facility] [address] [id number] [address] [place] [address], [place] [id number] Jul, [facility] [address] [id number] [address] [place] [address], [place] [id number] Jul, [facility] [address] [id number] [address] [place] [address], [place] [id number] Jul, [facility] [address] [id number] [address] [place] [address], [place] [id number] Jul, [facility] [address] [id number] [address] [place] [address], [place] [id number] Jul, [facility] [address] [id number] [address] [place] [address], [place] [id number] May, [facility] [address] [id number] [place] [id number] May, [facility] [address] [id number] [address] [place] [address], [place] [id number] May, [facility] [address] [id number] [address] [place] [id number] May, [facility] [address] [facility] [id number] [address] [place] [id number] May, [facility] [address] [facility] [id number] [address] [place] [id number] Apr, [facility] [address] [id number] [place] [id number] Apr, [facility] [address] [facility] [id number] [address] [place] [id number] Apr, [facility] [address] [facility] [id number] [address] [place] [id number] Mar, [facility] [address] [id number] [place] [id number] Mar, [facility] [address] [facility] [id number] [address] [place] [id number] Mar, [facility] [address] [id number] [place] [id number] Feb, [facility] [address] [facility] [id number] [address] [place] [id number] Feb, [facility] [address] [facility] [id number] [address] [place] [id number] Feb, [facility] [address] [id number] [place] [id number] Feb, [facility] [address] [id number] [place] [id number] Feb, [facility] [address] [id number] [place] [id number] Jan, [facility] [address] [id number] [address] [place] [address], [place] [id number] Jan, [facility] [address] [id number] [place] [id number] Jan, [facility] [address] [id number] [place] [id number] Jan, [facility] [address] [id number] [place] [id number] Jan, [facility] [address] [facility] [id number] [address] [place] [address], [place] [id number] Jan, [facility] [address] [facility] [id number] [address] [place] [address], [place] [id number] Jan, [facility] [address] [facility] [id number] [address] [place] [address], [place] [id number] Aug, [facility] [address] [id number] [place] [id number] Aug, [facility] [address] [facility] [id number] [address] [place] [address], [place] [id number] Jul, [facility] [address] [facility] [id number] [address] [place] [address], [place] [id number] Jul, [facility] [address] [facility] [id number] [address] [place] [address], [place] [id number] Jul, [facility] [address] [id number] [place] [id number] Jul, [facility] [address] [facility] [id number] [address] [place] [address], [place] [id number] Jul, [facility] [address] [id number] [place] [id number] Jul, [facility] [address] [facility] [id number] [address] [place] [address], [place] [id number] Jul, [facility] [address] [id number] [place] [id number] Jul, [facility] [address] [id number] [place] [id number] Jul, [facility] [address] [id number] [place] [id number] Jul, [facility] [address] [facility] [id number] [address] [place] [id number], [place] [id number] May, [facility] [address] [id number] [address] [place] [phone] May, [facility] [address] [id number] [address] [place] [id number] May, [facility] [address] [id number] [address] [place] [phone] Apr, [facility] [address] [id number] [address] [place] [id number] Jan, [facility] [address] [id number] [address] [place] [id number] Jan, [facility] [address] [id number] [address] [place] [phone] Dec, [facility] [address] [id number] [address] [place] [id number] Dec, [facility] [address] [id number] [address] [place] [id number] May, [facility] [address] [id number] [address] [place] [phone] Mar, [facility] [address] [id number] [address] [place] [phone] Mar, [facility] [address] [id number] [address] [place] [id number] Jan, IMMUNIZATIONS No Known Immunizations SOCIAL HISTORY Never Assessed REASON FOR VISIT PLAN OF CARE VITAL SIGNS MEDICATIONS Unknown Medications RESULTS No Results PROCEDURES Procedure Date Ordered Result Body Site PROTHROMBIN TIME Jul 07, 2014 INSTRUCTIONS MEDICATIONS ADMINISTERED No Known Medications [...]
--- OUTSIDE RECORDS SUMMARY | 2020-01-28 12:25 | XMS REPORT ---
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 Active 906899851 Problem History of venous thromboembolism V12.51 Active 878417247 Problem Cellulitis of unspecified part of limb L03.119 Active 916585537 Problem Gastroesophageal reflux disease without esophagitis K21.9 Active 531853589 Problem History of pulmonary embolism Z86.711 Active 883017186 Problem Pseudotumor cerebri G93.2 Active 85692237 Problem History of DVT (deep vein thrombosis) Z86.718 Active 161599314 ALLERGIES No Information ENCOUNTERS Encounter Location Date Diagnosis [place] [id number] [facility] [id number] [address] [place] [id number] Apr, [facility] (current) use of 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 Z79.01 [facility] [address] [facility] [id number] [address] [place] [phone] Apr, [facility] 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.01 [facility] [address] [facility] [id number] [address] [place] [address] Apr, Cellulitis of unspecified pa rt of limb L03.119 ; Allergic contact dermatitis due to adhesives L23.1 and Chronic pain syndrome G89.4 [facility] [address] [facility] [id number] [address] [place] [address] Apr, [place] [address] [place] [id number] [address] [place] [address] Apr, termination clerk 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.01 ; Cellulitis of unspecified part of limb L03.119 ; Chronic pain syndrome G89.4 and Anxiety F41.9 [facility] [address] [place] [id number] [address] [place] [address] 16 Apr, 2015 [facility] [address] [place] [id number] [place] [address] Apr, [place] [address] [place] [id number] [place] [address] Mar, [place] [address] [address] Mar, [place] [address] [address] Mar, Sore throat J02.9 ; Gastroes ophageal reflux disease without esophagitis K21.9 ; Pseudotumor cerebri G93.2 ; Chronic pain syndrome G89.4 ; Choriocarcinoma C58 ; History of pulmonary embolism Z86.711 ; History of DVT (deep vein thrombosis) Z86.718 ; Anxiety F41.9 and Tachycardia R00.0 [place] [address] [address] Feb, Anxiety 300.00 and Chronic p ain 338.29 [place] [address] [place] [id number] [address] [place] [address] Feb, [place] [address] [place] [id number] [address] [place] [address] Feb, [place] [address] [address] Jan, termination clerk 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 therapy V58.61 and Dysuria 788.1 [place] [address] [place] [id number] [place] [address] Jan, Dysuria 788.1 [facility] [address] [place] [id number] [address] [place] [address] Jan, Anxiety 300.00 and Chronic p ain 338.29 [facility] [address] [place] [id number] [place] [address] Jan, [facility] [address] [address] Jan, [facility] [address] [address] Jan, [place] [address] [address] Dec, Weakness 780.79 [place] [address] [address] Dec, [facility] 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 therapy V58.61 [place] [address] [address] Dec, Palpitations 785.1 ; Tremor 781.0 ; Weakness 780.79 ; [facility] 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 therapy V58.61 and Yeast vaginitis 112.1 [place] [address] [place] [id number] [address] [place] [address] Dec, [place] [address] [address] Dec, Cervicalgia 723.1 ; Tachycar yoseph 785.0 ; Pseudotumor cerebri 348.2 and History of venous thromboembolism V12.51 [place] [address] [address] Nov, [place] [address] [address] Nov, [place] [address] [address] Nov, Tachycardia 785.0 ; Pseudotu mor cerebri 348.2 ; Anxiety 300.00 and History of venous thromboembolism V12.51 [facility] [address] [id number] [address] [place] [address] Nov, [facility] [address] [id number] [address] [place] [phone] 18 Nov, 2014 [facility] [address] [id number] [address] [place] [address] Nov, [facility] [address] [id number] [address] [place] [address] Nov, [facility] [address] [facility] [id number] [address] [place] [address] Nov, [facility] [address] [facility] [id number] [address] [place] [address] Nov, [facility] [address] [facility] [id number] [address] [place] [phone] Nov, [facility] [address] [facility] [id number] [address] [place] [address] October, [facility] [address] [facility] [id number] [address] [place] [address] October, [facility] [address] [place] [id number] [address] [place] [address] October, Pain in thoracic spine 724.1 and Tachycardia 785.0 [facility] [address] [id number] [address] [place] [address] October, [facility] [address] [id number] [address] [place] [address] October, [facility] [address] [facility] [id number] [address] [place] [phone] 14 Sep, 2014 [facility] [address] [facility] [id number] [address] [place] [phone] Sep, [facility] [address] [id number] [facility] [place] [address] Aug, [facility] [address] [id number] [address] [place] [address], [place] [address] Aug, [facility] [address] [id number] [address] [place] [address], [place] [address] Aug, [facility] [address] [id number] [address] [place] [address], [place] [address] Aug, [facility] [address] [id number] [address] [place] [address], [place] [address] Aug, [facility] [address] [id number] [address] [place] [address], [place] [address] Aug, [facility] [address] [id number] [address] [place] [address], [place] [address] Aug, [facility] [address] [id number] [address] [place] [address], [place] [address] Aug, [facility] [address] [id number] [address] [place] [address], [place] [address] Aug, [facility] [address] [id number] [address] [place] [address], [place] [address] Aug, [facility] [address] [id number] [address] [place] [address], [place] [address] Aug, [facility] [address] [id number] [address] [place] [address], [place] [address] Aug, 2014 [facility] [address] [id number] [address] [place] [address], [place] [address] Jul, [facility] [address] [id number] [address] [place] [address], [place] [address] Jul, [facility] [address] [id number] [address] [place] [address], [place] [address] Jul, [facility] [address] [id number] [address] [place] [address], [place] [address] Jul, [facility] [address] [id number] [address] [place] [address], [place] [address] 23 Jul, 2014 [facility] [address] [id number] [address] [place] [address], [place] [address] 23 Jul, 2014 [facility] [address] [id number] [address] [place] [address], [place] [address] 23 Jul, 2014 [facility] [address] [id number] [address] [place] [address], [place] [address] 23 Jul, 2014 [facility] [address] [id number] [address] [place] [address], [place] [address] 20 Jul, 2014 [facility] [address] [id number] [address] [place] [address], [place] [address] 20 Jul, 2014 [facility] [address] [id number] [address] [place] [address], [place] [address] 19 Jul, 2014 [facility] [address] [id number] [address] [place] [address], [place] [address] 19 Jul, 2014 [facility] [address] [id number] [address] [place] [address], [place] [address] 17 Jul, 2014 [facility] [address] [id number] [address] [place] [address], [place] [address] 17 Jul, 2014 [facility] [address] [id number] [address] [place] [address], [place] [address] 16 Jul, 2014 [facility] [address] [id number] [address] [place] [address], [place] [address] 16 Jul, 2014 [facility] [address] [id number] [address] [place] [address], [place] [address] 16 Jul, 2014 [facility] [address] [id number] [address] [place] [id number] 16 Jul, 2014 [facility] [address] [id number] [address] [place] [id number] 13 Jul, 2014 [facility] [address] [id number] [address] [place] [address], [place] [address] Jul, [facility] [address] [id number] [address] [place] [address], [place] [address] Jul, [facility] [address] [id number] [address] [place] [address], [place] [address] Jul, 2014 [facility] [address] [id number] [address] [place] [address], [place] [address] Jul, 2014 [facility] [address] [id number] [address] [place] [address], [place] [address] Jul, [facility] [address] [id number] [address] [place] [address], [place] [address] Jul, [facility] [address] [id number] [address] [place] [address], [place] [address] Jul, [facility] [address] [id number] [address] [place] [address], [place] [address] Jul, [facility] [address] [id number] [address] [place] [address], [place] [address] Jul, [facility] [address] [id number] [address] [place] [address], [place] [address] Jul, [facility] [address] [id number] [address] [place] [address], [place] [address] Jul, [facility] [address] [id number] [address] [place] [address], [place] [address] Jun, [facility] [address] [id number] [address] [place] [address], [place] [address] Jun, [facility] [address] [id number] [address] [place] [address], [place] [address] Jun, [facility] [address] [id number] [address] [place] [address], [place] [address] Jun, [facility] [address] [id number] [address] [place] [address], [place] [address] Jun, [facility] [address] [id number] [address] [place] [address], [place] [address] Jun, [facility] [address] [id number] [address] [place] [address], [place] [address] Jun, [facility] [address] [id number] [address] [place] [address], [place] [address] Jun, [facility] [address] [id number] [address] [place] [address], [place] [address] Jun, [facility] [address] [id number] [address] [place] [address], [place] [address] Jun, [facility] [address] [id number] [address] [place] [address], [place] [address] Jun, [facility] [address] [id number] [address] [place] [address], [place] [address] Jun, [facility] [address] [id number] [address] [place] [address], [place] [address] Jun, [facility] [address] [id number] [address] [place] [address], [place] [address] Jun, [facility] [address] [id number] [address] [place] [address], [place] [address] Jun, [facility] [address] [id number] [address] [place] [address], [place] [address] Jun, [facility] [address] [id number] [address] [place] [address], [place] [address] Jun, [facility] [address] [id number] [address] [place] [address], [place] [address] Jun, [facility] [address] [id number] [address] [place] [address], [place] [address] Jun, [facility] [address] [id number] [address] [place] [address], [place] [address] Jun, [facility] [address] [id number] [address] [place] [address], [place] [address] May, [facility] [address] [id number] [address] [place] [address], [place] [address] May, [facility] [address] [id number] [address] [place] [address], [place] [address] May, [facility] [address] [id number] [address] [place] [address], [place] [address] May, [facility] [address] [id number] [address] [place] [address], [place] [address] May, [facility] [address] [id number] [address] [place] [address], [place] [address] May, [facility] [address] [id number] [address] [place] [address], [place] [address] May, [facility] [address] [id number] [address] [place] [address], [place] [address] May, [facility] [address] [id number] [address] [place] [address], [place] [address] May, [facility] [address] [id number] [address] [place] [address], [place] [address] May, [facility] [address] [id number] [address] [place] [address], [place] [address] May, [facility] [address] [id number] [address] [place] [address], [place] [address] 18 May, 2014 [facility] [address] [id number] [address] [place] [address], [place] [address] 18 May, 2014 [facility] [address] [id number] [address] [place] [address], [place] [address] 17 May, 2014 [facility] [address] [id number] [address] [place] [address], [place] [address] 16 May, 2014 [facility] [address] [id number] [address] [place] [address], [place] [address] 16 May, 2014 [facility] [address] [id number] [address] [place] [address], [place] [address] 15 May, 2014 [facility] [address] [id number] [address] [place] [address], [place] [address] 15 May, 2014 [facility] [address] [id number] [address] [place] [address], [place] [address] May, [facility] [address] [id number] [address] [place] [address], [place] [address] May, [facility] [address] [id number] [address] [place] [address], [place] [address] May, [facility] [address] [id number] [address] [place] [address], [place] [address] May, [facility] [address] [id number] [address] [place] [address], [place] [address] May, [facility] [address] [id number] [address] [place] [address], [place] [address] May, [facility] [address] [id number] [address] [place] [address], [place] [address] May, [facility] [address] [id number] [address] [place] [address], [place] [address] May, [facility] [address] [id number] [address] [place] [address], [place] [address] May, [facility] [address] [id number] [address] [place] [address], [place] [address] May, [facility] [address] [id number] [address] [place] [address], [place] [address] May, [facility] [address] [id number] [address] [place] [address], [place] [address] May, [facility] [address] [id number] [address] [place] [address], [place] [address] May, [facility] [address] [id number] [address] [place] [address], [place] [address] May, [facility] [address] [id number] [address] [place] [address], [place] [address] May, [facility] [address] [id number] [address] [place] [address], [place] [address] May, [facility] [address] [id number] [address] [place] [address], [place] [address] Apr, [facility] [address] [id number] [address] [place] [address], [place] [address] Apr, [facility] [address] [id number] [address] [place] [address], [place] [address] Apr, [facility] [address] [id number] [address] [place] [address], [place] [address] Apr, [facility] [address] [id number] [address] [place] [address], [place] [address] Apr, [facility] [address] [id number] [address] [place] [address], [place] [address] Apr, [facility] [address] [id number] [address] [place] [address], [place] [address] Apr, [facility] [address] [id number] [address] [place] [address], [place] [address] Apr, [facility] [address] [id number] [address] [place] [address], [place] [address] Apr, [facility] [address] [id number] [address] [place] [address], [place] [address] Apr, [facility] [address] [id number] [address] [place] [address], [place] [address] Mar, [facility] [address] [id number] [address] [place] [address], [place] [address] Mar, [facility] [address] [id number] [address] [place] [address] [address] Mar, [facility] [address] [id number] [address] [place] [address], [place] [address] 31 Mar, 2013 [facility] [address] [id number] [address] [place] [address], [place] [address] Mar, [facility] [address] [id number] [address] [place] [address], [place] [address] 30 Mar, 2014 [facility] [address] [id number] [address] [place] [address], [place] [address] Mar, [facility] [address] [id number] [address] [place] [address], [place] [address] Mar, [facility] [address] [id number] [address] [place] [address], [place] [address] Mar, [facility] [address] [id number] [address] [place] [address], [place] [address] Mar, [facility] [address] [id number] [address] [place] [id number] Mar, [facility] [address] [id number] [address] [place] [id number] Mar, [facility] [address] [id number] [address] [place] [id number] Mar, [facility] [address] [id number] [address] [place] [id number] Mar, 2013 [facility] [address] [id number] [address] [place] [id number] Mar, 2013 [facility] [address] [id number] [address] [place] [id number] Mar, [facility] [address] [id number] [address] [place] [id number] Mar, [facility] [address] [id number] [address] [place] [id number] Mar, 2013 [facility] [address] [id number] [address] [place] [address], [place] [address] 02 Mar, 2013 [facility] [address] [id number] [address] [place] [address], [place] [address] 02 Mar, 2013 [facility] [address] [id number] [address] [place] [address], [place] [address] 05 Sep, 2013 [facility] [address] [id number] [address] [place] [address], [place] [address] 05 Sep, 2013 [facility] [address] [id number] [address] [place] [address], [place] [address] 04 Sep, 2013 [facility] [address] [id number] [address] [place] [address], [place] [address] 04 Sep, 2013 [facility] [address] [id number] [address] [place] [address], [place] [address] 03 Feb, 2013 [facility] [address] [id number] [address] [place] [address], [place] [address] 03 Feb, 2013 [facility] [address] [id number] [address] [place] [address], [place] [address] 02 Feb, 2013 [facility] [address] [id number] [address] [place] [address], [place] [address] Feb, 2013 [facility] [address] [id number] [address] [place] [address], [place] [address] 02 Feb, 2013 [facility] [address] [id number] [address] [place] [address], [place] [address] Feb, 2013 [facility] [address] [id number] [address] [place] [address], [place] [address] Jan, [facility] [address] [id number] [address] [place] [address], [place] [address] Jan, [facility] [address] [id number] [address] [place] [address], [place] [address] Jan, [facility] [address] [id number] [address] [place] [address], [place] [address] Jan, [facility] [address] [id number] [facility] [place] [address] Jan, [facility] [address] [id number] [address] [place] [address], [place] [address] Jan, [facility] [address] [id number] [address] [place] [address], [place] [address] Jan, [facility] [address] [id number] [address] [place] [address], [place] [address] Jan, [facility] [address] [id number] [address] [place] [address], [place] [address] Jan, [facility] [address] [id number] [address] [place] [address], [place] [address] Jan, [facility] [address] [id number] [address] [place] [address], [place] [address] Jan, [facility] [address] [id number] [address] [place] [address], [place] [address] Jan, [facility] [address] [id number] [address] [place] [address], [place] [address] Dec, [facility] [address] [id number] [address] [place] [address], [place] [address] Dec, [facility] [address] [id number] [address] [place] [address], [place] [address] Dec, [facility] [address] [id number] [address] [place] [address], [place] [address] Dec, [facility] [address] [id number] [address] [place] [address], [place] [address] Dec, [facility] [address] [id number] [address] [place] [address], [place] [address] Dec, [facility] [address] [id number] [address] [place] [address], [place] [address] Dec, [facility] [address] [id number] [address] [place] [address], [place] [address] Dec, [facility] [address] [id number] [facility] [place] [address] Dec, [facility] [address] [id number] [address] [place] [address], [place] [address] Dec, [facility] [address] [id number] [address] [place] [address], [place] [address] Dec, [facility] [address] [id number] [address] [place] [address], [place] [address] Dec, [facility] [address] [id number] [address] [place] [address], [place] [address] Nov, [facility] [address] [id number] [address] [place] [address], [place] [address] Nov, [facility] [address] [id number] [address] [place] [address], [place] [address] Nov, [facility] [address] [id number] [address] [place] [address], [place] [address] Nov, [facility] [address] [id number] [address] [place] [address], [place] [address] Nov, [facility] [address] [id number] [address] [place] [address], [place] [address] Nov, [facility] [address] [id number] [address] [place] [address], [place] [address] Nov, [facility] [address] [id number] [address] [place] [address], [place] [address] Nov, [facility] [address] [id number] [address] [place] [address], [place] [address] Nov, [facility] [address] [id number] [address] [place] [address], [place] [address] Nov, [facility] [address] [id number] [address] [place] [address], [place] [address] Nov, [facility] [address] [id number] [facility] [place] [address] Nov, [facility] [address] [id number] [address] [place] [address], [place] [address] Nov, [facility] [address] [id number] [address] [place] [address], [place] [address] Nov, [facility] [address] [id number] [address] [place] [address], [place] [address] October, [facility] [address] [id number] [address] [place] [address], [place] [address] October, [facility] [address] [id number] [address] [place] [address], [place] [address] October, [facility] [address] [id number] [address] [place] [address], [place] [address] October, [facility] [address] [id number] [address] [place] [address], [place] [address] October, [facility] [address] [id number] [address] [place] [address], [place] [address] October, [facility] [address] [id number] [address] [place] [address], [place] [address] October, [facility] [address] [id number] [address] [place] [address], [place] [address] October, [facility] [address] [id number] [address] [place] [address], [place] [address] October, [facility] [address] [id number] [address] [place] [address], [place] [address] October, [facility] [address] [id number] [address] [place] [address], [place] [address] October, [facility] [address] [id number] [address] [place] [address], [place] [address] October, [facility] [address] [id number] [address] [place] [address], [place] [address] Sep, [facility] [address] [id number] [facility] [place] [address] Sep, [facility] [address] [id number] [address] [place] [address], [place] [address] Sep, [facility] [address] [id number] [facility] [place] [address] Sep, [facility] [address] [id number] [address] [place] [address], [place] [address] Sep, [facility] [address] [id number] [address] [place] [address], [place] [address] Sep, [facility] [address] [id number] [address] [place] [address], [place] [address] Aug, [facility] [address] [id number] [address] [place] [address], [place] [address] Aug, [facility] [address] [id number] [address] [place] [address], [place] [address] Aug, [facility] [address] [id number] [address] [place] [address], [place] [address] Aug, [facility] [address] [id number] [address] [place] [address], [place] [address] Aug, [facility] [address] [id number] [address] [place] [address], [place] [address] Aug, [facility] [address] [id number] [address] [place] [address], [place] [address] Jul, [facility] [address] [id number] [address] [place] [address], [place] [address] Jul, [facility] [address] [id number] [address] [place] [address], [place] [address] Jul, [facility] [address] [id number] [address] [place] [address], [place] [address] Jul, [facility] [address] [id number] [address] [place] [address], [place] [address] 13 Jul, 2013 [facility] [address] [id number] [address] [place] [address], [place] [address] Jul, [facility] [address] [id number] [address] [place] [address], [place] [address] Jul, [facility] [address] [id number] [address] [place] [address], [place] [address] Jul, [facility] [address] [id number] [address] [place] [address], [place] [address] Jul, [facility] [address] [id number] [address] [place] [address], [place] [address] Jul, [facility] [address] [id number] [address] [place] [address], [place] [address] Jun, [facility] [address] [id number] [address] [place] [address], [place] [address] Jun, [facility] [address] [id number] [address] [place] [address], [place] [address] Jun, [facility] [address] [id number] [address] [place] [address], [place] [address] Jun, [facility] [address] [id number] [address] [place] [address], [place] [address] Jun, [facility] [address] [id number] [address] [place] [address], [place] [address] Jun, [facility] [address] [id number] [address] [place] [address], [place] [address] Jun, [facility] [address] [id number] [address] [place] [address], [place] [address] Jun, [facility] [address] [id number] [address] [place] [address], [place] [address] May, [facility] [address] [id number] [address] [place] [address], [place] [address] May, [facility] [address] [id number] [address] [place] [address], [place] [address] May, [facility] [address] [id number] [address] [place] [address], [place] [address] May, [facility] [address] [id number] [address] [place] [address], [place] [address] May, [facility] [address] [id number] [address] [place] [address], [place] [address] May, [facility] [address] [id number] [address] [place] [address], [place] [address] May, [facility] [address] [id number] [address] [place] [address], [place] [address] May, [facility] [address] [id number] [address] [place] [address], [place] [address] Apr, [facility] [address] [id number] [address] [place] [address] Apr, [facility] [address] [id number] [address] [place] [address], [place] [address] Apr, [facility] [address] [id number] [address] [place] [address] Apr, [facility] [address] [id number] [address] [place] [address] Apr, [facility] [address] [id number] [address] [place] [address] Apr, [facility] [address] [id number] [address] [place] [address], [place] [address] Mar, [facility] [address] [id number] [address] [place] [address] Mar, [facility] [address] [id number] [address] [place] [address], [place] [address] Mar, [facility] [address] [id number] [address] [place] [address], [place] [address] Mar, [facility] [address] [id number] [address] [place] [address], [place] [address] Mar, [facility] [address] [id number] [address] [place] [address], [place] [address] Mar, [facility] [address] [id number] [address] [place] [address], [place] [address] Mar, [facility] [address] [id number] [address] [place] [address], [place] [address] 30 Feb, 2012 [facility] [address] [id number] [address] [place] [address], [place] [address] 30 Feb, 2013 [facility] [address] [id number] [address] [place] [address], [place] [address] 27 Feb, 2013 [facility] [address] [id number] [address] [place] [address], [place] [address] Feb, 2012 [facility] [address] [id number] [address] [place] [address], [place] [address] Feb, [facility] [address] [id number] [address] [place] [address], [place] [address] Feb, [facility] [address] [id number] [address] [place] [address], [place] [address] Jan, [facility] [address] [id number] [address] [place] [address], [place] [address] Jan, [facility] [address] [id number] [address] [place] [address], [place] [address] Jan, [facility] [address] [id number] [address] [place] [address], [place] [address] Jan, [facility] [address] [id number] [address] [place] [address], [place] [address] Jan, [facility] [address] [id number] [address] [place] [address], [place] [address] Jan, [facility] [address] [id number] [address] [place] [address], [place] [address] Jan, [facility] [address] [id number] [address] [place] [address], [place] [address] Jan, [facility] [address] [id number] [address] [place] [address], [place] [address] Jan, [facility] [address] [id number] [address] [place] [address], [place] [address] Dec, [facility] [address] [id number] [address] [place] [address], [place] [address] Dec, [facility] [address] [id number] [address] [place] [address], [place] [address] Dec, [facility] [address] [id number] [address] [place] [address], [place] [address] Dec, [facility] [address] [id number] [address] [place] [address], [place] [address] Dec, [facility] [address] [id number] [address] [place] [address], [place] [address] Dec, [facility] [address] [id number] [address] [place] [address], [place] [address] Dec, [facility] [address] [id number] [address] [place] [address], [place] [address] Dec, [facility] [address] [id number] [address] [place] [address], [place] [address] Dec, [facility] [address] [id number] [address] [place] [address], [place] [address] Dec, [facility] [address] [id number] [address] [place] [address], [place] [address] Dec, [facility] [address] [id number] [address] [place] [address], [place] [address] Dec, [facility] [address] [id number] [address] [place] [address], [place] [address] Dec, [facility] [address] [id number] [address] [place] [address], [place] [address] Nov, [facility] [address] [id number] [address] [place] [address], [place] [address] Nov, [facility] [address] [id number] [address] [place] [address], [place] [address] Nov, [facility] [address] [id number] [address] [place] [address], [place] [address] Nov, [facility] [address] [id number] [address] [place] [address], [place] [address] October, [facility] [address] [id number] [address] [place] [address], [place] [address] October, [facility] [address] [id number] [address] [place] [address], [place] [address] October, [facility] [address] [id number] [address] [place] [address], [place] [address] October, [facility] [address] [id number] [address] [place] [address], [place] [address] October, [facility] [address] [id number] [address] [place] [address], [place] [address] October, [facility] [address] [id number] [address] [place] [address], [place] [address] Sep, [facility] [address] [id number] [address] [place] [address], [place] [address] Sep, [facility] [address] [id number] [address] [place] [address], [place] [address] Sep, [facility] [address] [id number] [address] [place] [address], [place] [address] Sep, [facility] [address] [id number] [address] [place] [address], [place] [address] Sep, [facility] [address] [id number] [facility] [place] [address] 16 Sep, 2012 [facility] [address] [id number] [address] [place] [address], [place] [address] 12 Sep, 2012 [facility] [address] [id number] [address] [place] [address], [place] [address] Sep, [facility] [address] [id number] [address] [place] [address], [place] [address] Sep, [facility] [address] [id number] [address] [place] [address], [place] [address] Sep, [facility] [address] [id number] [address] [place] [address], [place] [address] Sep, [facility] [address] [id number] [address] [place] [address], [place] [address] Aug, [facility] [address] [id number] [address] [place] [address], [place] [address] 25 Aug, 2012 [facility] [address] [id number] [address] [place] [address], [place] [address] 25 Aug, 2012 [facility] [address] [id number] [address] [place] [address], [place] [address] 21 Aug, 2012 [facility] [address] [id number] [address] [place] [address], [place] [address] 19 Aug, 2012 [facility] [address] [id number] [address] [place] [address], [place] [address] 18 Aug, 2012 [facility] [address] [id number] [address] [place] [address], [place] [address] 17 Aug, 2012 [facility] [address] [id number] [address] [place] [address], [place] [address] 15 Aug, 2012 [facility] [address] [id number] [address] [place] [address], [place] [address] 15 Aug, 2012 [facility] [address] [id number] [address] [place] [address], [place] [address] Aug, [facility] [address] [id number] [address] [place] [address], [place] [address] Aug, [facility] [address] [id number] [address] [place] [address], [place] [address] Aug, [facility] [address] [id number] [address] [place] [address], [place] [address] Jul, [facility] [address] [id number] [address] [place] [address], [place] [address] Jul, [facility] [address] [id number] [address] [place] [address], [place] [address] Jul, [facility] [address] [id number] [address] [place] [address], [place] [address] Jul, [facility] [address] [id number] [address] [place] [address], [place] [address] Jul, [facility] [address] [id number] [address] [place] [address], [place] [address] Jul, [facility] [address] [id number] [address] [place] [address], [place] [address] Jul, [facility] [address] [id number] [address] [place] [address], [place] [address] Jul, [facility] [address] [id number] [address] [place] [address], [place] [address] Jul, [facility] [address] [id number] [address] [place] [address], [place] [address] Jul, [facility] [address] [id number] [address] [place] [address], [place] [address] May, [facility] [address] [id number] [place] [id number] May, [facility] [address] [id number] [address] [place] [address], [place] [address] May, [facility] [address] [id number] [address] [place] [id number] May, [facility] [address] [facility] [id number] [address] [place] [id number] May, [facility] [address] [facility] [id number] [address] [place] [id number] Apr, [facility] [place] [address] [id number] [place] [id number] Apr, [facility] [address] [facility] [id number] [address] [place] [id number] Apr, [facility] [address] [facility] [id number] [address] [place] [id number] Mar, [facility] [place] [address] [id number] [place] [id number] Mar, [facility] [address] [facility] [id number] [address] [place] [id number] Mar, [facility] [place] [address] [id number] [place] [id number] Feb, [facility] [address] [facility] [id number] [address] [place] [phone] Feb, [facility] [address] [facility] [id number] [address] [place] [phone] Feb, [facility] [place] [address] [id number] [place] [id number] Feb, [facility] [address] [id number] [place] [id number] Feb, [facility] [address] [id number] [place] [id number] Jan, [facility] [address] [id number] [address] [place] [address], [place] [address] Jan, [facility] [place] [address] [id number] [place] [id number] Jan, [facility] [place] [address] [id number] [place] [id number] Jan, [facility] [place] [address] [id number] [place] [id number] Jan, [facility] [address] [facility] [id number] [address] [place] [address], [place] [address] Jan, [facility] [address] [facility] [id number] [address] [place] [address], [place] [address] Jan, [facility] [address] [facility] [id number] [address] [place] [address], [place] [address] Aug, [facility] [place] [address] [id number] [place] [id number] Aug, [facility] [address] [facility] [id number] [address] [place] [address], [place] [address] Jul, [facility] [address] [facility] [id number] [address] [place] [address], [place] [address] Jul, [facility] [address] [facility] [id number] [address] [place] [address], [place] [address] Jul, [facility] [place] [address] [id number] [place] [id number] Jul, [facility] [address] [facility] [id number] [address] [place] [address], [place] [address] Jul, [facility] [place] [address] [id number] [place] [id number] Jul, [facility] [address] [facility] [id number] [address] [place] [address], [place] [address] Jul, [facility] [place] [address] [id number] [place] [id number] Jul, [facility] [place] [address] [id number] [place] [id number] Jul, [facility] [place] [address] [id number] [place] [id number] Jul, [facility] [address] [facility] [id number] [address] [place] [address], [place] [address] May, [facility] [address] [id number] [address] [place] [phone] May, [facility] [address] [id number] [address] [place] [phone] May, [facility] [address] [id number] [address] [place] [id number] Apr, [facility] [address] [id number] [address] [place] [id number] Jan, [facility] [address] [id number] [address] [place] [phone] Jan, [facility] [address] [id number] [address] [place] [id number] Dec, [facility] [address] [id number] [address] [place] [id number] Dec, [facility] [address] [id number] [address] [place] [phone] May, [facility] [address] [id number] [address] [place] [id number] Mar, [facility] [address] [id number] [address] [place] [id number] Mar, [facility] [address] [id number] [place] [phone] Jan, IMMUNIZATIONS No Known Immunizations SOCIAL HISTORY [...]
--- OUTSIDE RECORDS SUMMARY | 2020-01-28 12:26 | XMS REPORT ---
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 Z79.01 Active 304754800 Problem History of venous thromboembolism V12.51 Active 383706089 Problem Cellulitis of unspecified part of limb L03.119 Active 478691769 Problem Gastroesophageal reflux disease without esophagitis K21.9 Active 735488957 Problem History of pulmonary embolism Z86.711 Active 091437857 Problem Pseudotumor cerebri G93.2 Active 76405166 Problem History of DVT (deep vein thrombosis) Z86.718 Active [id number] ALLERGIES No Information ENCOUNTERS Encounter Location Date Diagnosis [place] [id number] [facility] [id number] [address] [place] [address] Apr, residential (current) use of 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 Z79.01 [facility] [address] [facility] [id number] [address] [place] [address] Apr, residential 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.01 [facility] [address] [facility] [id number] [address] [place] [address] Apr, Cellulitis of unspecified pa rt of limb L03.119 ; Allergic contact dermatitis due to adhesives L23.1 and Chronic pain syndrome G89.4 [facility] [address] [facility] [id number] [address] [place] [address] Apr, [place] [address] [place] [id number] [address] [place] [address] Apr, intermission coordinator 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.01 ; Cellulitis of unspecified part of limb L03.119 ; Chronic pain syndrome G89.4 and Anxiety F41.9 [facility] [address] [place] [id number] [address] [place] [address] 16 Apr, 2015 [facility] [address] [place] [id number] [place] [address] Apr, [place] [address] [place] [id number] [place] [address] Mar, [place] [address] [address] Mar, [place] [address] [address] Mar, Sore throat J02.9 ; Gastroes ophageal reflux disease without esophagitis K21.9 ; Pseudotumor cerebri G93.2 ; Chronic pain syndrome G89.4 ; Choriocarcinoma C58 ; History of pulmonary embolism Z86.711 ; History of DVT (deep vein thrombosis) Z86.718 ; Anxiety F41.9 and Tachycardia R00.0 [place] [address] [address] Feb, Anxiety 300.00 and Chronic p ain 338.29 [place] [address] [place] [id number] [address] [place] [address] Feb, [place] [address] [place] [id number] [address] [place] [address] Feb, [place] [address] [address] Jan, intermission coordinator 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 therapy V58.61 and Dysuria 788.1 [place] [address] [place] [id number] [place] [address] Jan, Dysuria 788.1 [facility] [address] [place] [id number] [address] [place] [address] Jan, Anxiety 300.00 and Chronic p ain 338.29 [facility] [address] [place] [id number] [place] [address] Jan, [facility] [address] [address] Jan, [facility] [address] [address] Jan, [place] [address] [address] Dec, Weakness 780.79 [place] [address] [address] Dec, residential 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 therapy V58.61 [place] [address] [address] Dec, Palpitations 785.1 ; Tremor 781.0 ; Weakness 780.79 ; residential 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 therapy V58.61 and Yeast vaginitis 112.1 [place] [address] [place] [id number] [address] [place] [address] Dec, [place] [address] [address] Dec, Cervicalgia 723.1 ; Tachycar yoseph 785.0 ; Pseudotumor cerebri 348.2 and History of venous thromboembolism V12.51 [place] [address] [address] Nov, [place] [address] [address] Nov, [place] [address] [address] Nov, Tachycardia 785.0 ; Pseudotu mor cerebri 348.2 ; Anxiety 300.00 and History of venous thromboembolism V12.51 [facility] [address] [id number] [address] [place] [address] Nov, [facility] [address] [id number] [address] [place] [address] 18 Nov, 2014 [facility] [address] [id number] [address] [place] [address] Nov, [facility] [address] [id number] [address] [place] [address] Nov, [facility] [address] [facility] [id number] [address] [place] [address] Nov, [facility] [address] [facility] [id number] [address] [place] [address] Nov, [facility] [address] [facility] [id number] [address] [place] [address] Nov, [facility] [address] [facility] [id number] [address] [place] [address] October, [facility] [address] [facility] [id number] [address] [place] [address] October, [facility] [address] [place] [id number] [address] [place] [address] October, Pain in thoracic spine 724.1 and Tachycardia 785.0 [facility] [address] [id number] [address] [place] [address] October, [facility] [address] [id number] [address] [place] [address] October, [facility] [address] [facility] [id number] [address] [place] [address] 14 Sep, 2014 [facility] [address] [facility] [id number] [address] [place] [address] Sep, [facility] [address] [id number] [facility] [place] [address] Aug, [facility] [address] [id number] [address] [place] [address], [place] [address] Aug, [facility] [address] [id number] [address] [place] [address], [place] [address] Aug, [facility] [address] [id number] [address] [place] [address], [place] [address] Aug, [facility] [address] [id number] [address] [place] [address], [place] [address] Aug, [facility] [address] [id number] [address] [place] [address], [place] [address] Aug, [facility] [address] [id number] [address] [place] [address], [place] [address] Aug, [facility] [address] [id number] [address] [place] [address], [place] [address] Aug, [facility] [address] [id number] [address] [place] [address], [place] [address] Aug, [facility] [address] [id number] [address] [place] [address], [place] [address] Aug, [facility] [address] [id number] [address] [place] [address], [place] [address] Aug, [facility] [address] [id number] [address] [place] [address], [place] [address] Aug, 2014 [facility] [address] [id number] [address] [place] [address], [place] [address] Jul, [facility] [address] [id number] [address] [place] [address], [place] [address] Jul, [facility] [address] [id number] [address] [place] [address], [place] [address] Jul, [facility] [address] [id number] [address] [place] [address], [place] [address] Jul, [facility] [address] [id number] [address] [place] [address], [place] [address] 23 Jul, 2014 [facility] [address] [id number] [address] [place] [address], [place] [address] 23 Jul, 2014 [facility] [address] [id number] [address] [place] [address], [place] [address] 23 Jul, 2014 [facility] [address] [id number] [address] [place] [address], [place] [address] 23 Jul, 2014 [facility] [address] [id number] [address] [place] [address], [place] [address] 20 Jul, 2014 [facility] [address] [id number] [address] [place] [address], [place] [address] 20 Jul, 2014 [facility] [address] [id number] [address] [place] [address], [place] [address] 19 Jul, 2014 [facility] [address] [id number] [address] [place] [address], [place] [address] 19 Jul, 2014 [facility] [address] [id number] [address] [place] [address], [place] [address] 17 Jul, 2014 [facility] [address] [id number] [address] [place] [address], [place] [address] 17 Jul, 2014 [facility] [address] [id number] [address] [place] [address], [place] [address] 16 Jul, 2014 [facility] [address] [id number] [address] [place] [address], [place] [address] 16 Jul, 2014 [facility] [address] [id number] [address] [place] [address], [place] [address] 16 Jul, 2014 [facility] [address] [id number] [address] [place] [address] 16 Jul, 2014 [facility] [address] [id number] [address] [place] [address] 13 Jul, 2014 [facility] [address] [id number] [address] [place] [address], [place] [address] Jul, [facility] [address] [id number] [address] [place] [address], [place] [address] Jul, [facility] [address] [id number] [address] [place] [address], [place] [address] Jul, 2014 [facility] [address] [id number] [address] [place] [address], [place] [address] Jul, 2014 [facility] [address] [id number] [address] [place] [address], [place] [address] Jul, [facility] [address] [id number] [address] [place] [address], [place] [address] Jul, [facility] [address] [id number] [address] [place] [address], [place] [address] Jul, [facility] [address] [id number] [address] [place] [address], [place] [address] Jul, [facility] [address] [id number] [address] [place] [address], [place] [address] Jul, [facility] [address] [id number] [address] [place] [address], [place] [address] Jul, [facility] [address] [id number] [address] [place] [address], [place] [address] Jul, [facility] [address] [id number] [address] [place] [address], [place] [address] Jun, [facility] [address] [id number] [address] [place] [address], [place] [address] Jun, [facility] [address] [id number] [address] [place] [address], [place] [address] Jun, [facility] [address] [id number] [address] [place] [address], [place] [address] Jun, [facility] [address] [id number] [address] [place] [address], [place] [address] Jun, [facility] [address] [id number] [address] [place] [address], [place] [address] Jun, [facility] [address] [id number] [address] [place] [address], [place] [address] Jun, [facility] [address] [id number] [address] [place] [address], [place] [address] Jun, [facility] [address] [id number] [address] [place] [address], [place] [address] Jun, [facility] [address] [id number] [address] [place] [address], [place] [address] Jun, [facility] [address] [id number] [address] [place] [address], [place] [address] Jun, [facility] [address] [id number] [address] [place] [address], [place] [address] Jun, [facility] [address] [id number] [address] [place] [address], [place] [address] Jun, [facility] [address] [id number] [address] [place] [address], [place] [address] Jun, [facility] [address] [id number] [address] [place] [address], [place] [address] Jun, [facility] [address] [id number] [address] [place] [address], [place] [address] Jun, [facility] [address] [id number] [address] [place] [address], [place] [address] Jun, [facility] [address] [id number] [address] [place] [address], [place] [address] Jun, [facility] [address] [id number] [address] [place] [address], [place] [address] Jun, [facility] [address] [id number] [address] [place] [address], [place] [address] Jun, [facility] [address] [id number] [address] [place] [address], [place] [address] May, [facility] [address] [id number] [address] [place] [address], [place] [address] May, [facility] [address] [id number] [address] [place] [address], [place] [address] May, [facility] [address] [id number] [address] [place] [address], [place] [address] May, [facility] [address] [id number] [address] [place] [address], [place] [address] May, [facility] [address] [id number] [address] [place] [address], [place] [address] May, [facility] [address] [id number] [address] [place] [address], [place] [address] May, [facility] [address] [id number] [address] [place] [address], [place] [address] May, [facility] [address] [id number] [address] [place] [address], [place] [address] May, [facility] [address] [id number] [address] [place] [address], [place] [address] May, [facility] [address] [id number] [address] [place] [address], [place] [address] May, [facility] [address] [id number] [address] [place] [address], [place] [address] 18 May, 2014 [facility] [address] [id number] [address] [place] [address], [place] [address] 18 May, 2014 [facility] [address] [id number] [address] [place] [address], [place] [address] 17 May, 2014 [facility] [address] [id number] [address] [place] [address], [place] [address] 16 May, 2014 [facility] [address] [id number] [address] [place] [address], [place] [address] 16 May, 2014 [facility] [address] [id number] [address] [place] [address], [place] [address] 15 May, 2014 [facility] [address] [id number] [address] [place] [address], [place] [address] 15 May, 2014 [facility] [address] [id number] [address] [place] [address], [place] [address] May, [facility] [address] [id number] [address] [place] [address], [place] [address] May, [facility] [address] [id number] [address] [place] [address], [place] [address] May, [facility] [address] [id number] [address] [place] [address], [place] [address] May, [facility] [address] [id number] [address] [place] [address], [place] [address] May, [facility] [address] [id number] [address] [place] [address], [place] [address] May, [facility] [address] [id number] [address] [place] [address], [place] [address] May, [facility] [address] [id number] [address] [place] [address], [place] [address] May, [facility] [address] [id number] [address] [place] [address], [place] [address] May, [facility] [address] [id number] [address] [place] [address], [place] [address] May, [facility] [address] [id number] [address] [place] [address], [place] [address] May, [facility] [address] [id number] [address] [place] [address], [place] [address] May, [facility] [address] [id number] [address] [place] [address], [place] [address] May, [facility] [address] [id number] [address] [place] [address], [place] [address] May, [facility] [address] [id number] [address] [place] [address], [place] [address] May, [facility] [address] [id number] [address] [place] [address], [place] [address] May, [facility] [address] [id number] [address] [place] [address], [place] [address] Apr, [facility] [address] [id number] [address] [place] [address], [place] [address] Apr, [facility] [address] [id number] [address] [place] [address], [place] [address] Apr, [facility] [address] [id number] [address] [place] [address], [place] [address] Apr, [facility] [address] [id number] [address] [place] [address], [place] [address] Apr, [facility] [address] [id number] [address] [place] [address], [place] [address] Apr, [facility] [address] [id number] [address] [place] [address], [place] [address] Apr, [facility] [address] [id number] [address] [place] [address], [place] [address] Apr, [facility] [address] [id number] [address] [place] [address], [place] [address] Apr, [facility] [address] [id number] [address] [place] [address], [place] [address] Apr, [facility] [address] [id number] [address] [place] [address], [place] [address] Mar, [facility] [address] [id number] [address] [place] [address], [place] [address] Mar, [facility] [address] [id number] [address] [place] [address] [address] Mar, [facility] [address] [id number] [address] [place] [address], [place] [address] 31 Mar, 2013 [facility] [address] [id number] [address] [place] [address], [place] [address] Mar, [facility] [address] [id number] [address] [place] [address], [place] [address] 30 Mar, 2014 [facility] [address] [id number] [address] [place] [address], [place] [address] Mar, [facility] [address] [id number] [address] [place] [address], [place] [address] Mar, [facility] [address] [id number] [address] [place] [address], [place] [address] Mar, [facility] [address] [id number] [address] [place] [address], [place] [address] Mar, [facility] [address] [id number] [address] [place] [address] Mar, [facility] [address] [id number] [address] [place] [id number] Mar, [facility] [address] [id number] [address] [place] [id number] Mar, [facility] [address] [id number] [address] [place] [address] Mar, 2013 [facility] [address] [id number] [address] [place] [id number] Mar, 2013 [facility] [address] [id number] [address] [place] [id number] Mar, [facility] [address] [id number] [address] [place] [id number] Mar, [facility] [address] [id number] [address] [place] [id number] Mar, 2013 [facility] [address] [id number] [address] [place] [address], [place] [address] 02 Mar, 2013 [facility] [address] [id number] [address] [place] [address], [place] [address] 02 Mar, 2013 [facility] [address] [id number] [address] [place] [address], [place] [address] 05 Sep, 2013 [facility] [address] [id number] [address] [place] [address], [place] [address] 05 Sep, 2013 [facility] [address] [id number] [address] [place] [address], [place] [address] 04 Sep, 2013 [facility] [address] [id number] [address] [place] [address], [place] [address] 04 Sep, 2013 [facility] [address] [id number] [address] [place] [address], [place] [address] 03 Feb, 2013 [facility] [address] [id number] [address] [place] [address], [place] [address] 03 Feb, 2013 [facility] [address] [id number] [address] [place] [address], [place] [address] 02 Feb, 2013 [facility] [address] [id number] [address] [place] [address], [place] [address] Feb, 2013 [facility] [address] [id number] [address] [place] [address], [place] [address] 02 Feb, 2013 [facility] [address] [id number] [address] [place] [address], [place] [address] Feb, 2013 [facility] [address] [id number] [address] [place] [address], [place] [address] Jan, [facility] [address] [id number] [address] [place] [address], [place] [address] Jan, [facility] [address] [id number] [address] [place] [address], [place] [address] Jan, [facility] [address] [id number] [address] [place] [address], [place] [address] Jan, [facility] [address] [id number] [facility] [place] [address] Jan, [facility] [address] [id number] [address] [place] [address], [place] [address] Jan, [facility] [address] [id number] [address] [place] [address], [place] [address] Jan, [facility] [address] [id number] [address] [place] [address], [place] [address] Jan, [facility] [address] [id number] [address] [place] [address], [place] [address] Jan, [facility] [address] [id number] [address] [place] [address], [place] [address] Jan, [facility] [address] [address] [id number] [address] [place] [address], [place] [address] Jan, [facility] [address] [id number] [address] [place] [address], [place] [address] Jan, [facility] [address] [id number] [address] [place] [address], [place] [address] Dec, [facility] [address] [id number] [address] [place] [address], [place] [address] Dec, [facility] [address] [id number] [address] [place] [address], [place] [address] Dec, [facility] [address] [id number] [address] [place] [address], [place] [address] Dec, [facility] [address] [id number] [address] [place] [address], [place] [address] Dec, [facility] [address] [id number] [address] [place] [address], [place] [address] Dec, [facility] [address] [id number] [address] [place] [address], [place] [address] Dec, [facility] [address] [id number] [address] [place] [address], [place] [address] Dec, [facility] [address] [id number] [facility] [place] [address] Dec, [facility] [address] [id number] [address] [place] [address], [place] [address] Dec, [facility] [address] [id number] [address] [place] [address], [place] [address] Dec, [facility] [address] [id number] [address] [place] [address], [place] [address] Dec, [facility] [address] [id number] [address] [place] [address], [place] [address] Nov, [facility] [address] [id number] [address] [place] [address], [place] [address] Nov, [facility] [address] [id number] [address] [place] [address], [place] [address] Nov, [facility] [address] [id number] [address] [place] [address], [place] [address] Nov, [facility] [address] [id number] [address] [place] [address], [place] [address] Nov, [facility] [address] [id number] [address] [place] [address], [place] [address] Nov, [facility] [address] [id number] [address] [place] [address], [place] [address] Nov, [facility] [address] [id number] [address] [place] [address], [place] [address] Nov, [facility] [address] [id number] [address] [place] [address], [place] [address] Nov, [facility] [address] [id number] [address] [place] [address], [place] [address] Nov, [facility] [address] [id number] [address] [place] [address], [place] [address] Nov, [facility] [address] [id number] [facility] [place] [address] Nov, [facility] [address] [id number] [address] [place] [address], [place] [address] Nov, [facility] [address] [id number] [address] [place] [address], [place] [address] Nov, [facility] [address] [id number] [address] [place] [address], [place] [address] October, [facility] [address] [id number] [address] [place] [address], [place] [address] October, [facility] [address] [id number] [address] [place] [address], [place] [address] October, [facility] [address] [id number] [address] [place] [address], [place] [address] October, [facility] [address] [id number] [address] [place] [address], [place] [address] October, [facility] [address] [id number] [address] [place] [address], [place] [address] October, [facility] [address] [id number] [address] [place] [address], [place] [address] October, [facility] [address] [id number] [address] [place] [address], [place] [address] October, [facility] [address] [id number] [address] [place] [address], [place] [address] October, [facility] [address] [id number] [address] [place] [address], [place] [address] October, [facility] [address] [id number] [address] [place] [address], [place] [address] October, [facility] [address] [id number] [address] [place] [address], [place] [address] October, [facility] [address] [id number] [address] [place] [address], [place] [address] Sep, [facility] [address] [id number] [facility] [place] [address] Sep, [facility] [address] [id number] [address] [place] [address], [place] [address] Sep, [facility] [address] [id number] [facility] [place] [address] Sep, [facility] [address] [id number] [address] [place] [address], [place] [address] Sep, [facility] [address] [id number] [address] [place] [address], [place] [address] Sep, [facility] [address] [id number] [address] [place] [address], [place] [address] Aug, [facility] [address] [id number] [address] [place] [address], [place] [address] Aug, [facility] [address] [id number] [address] [place] [address], [place] [address] Aug, [facility] [address] [id number] [address] [place] [address], [place] [address] Aug, [facility] [address] [id number] [address] [place] [address], [place] [address] Aug, [facility] [address] [id number] [address] [place] [address], [place] [address] Aug, [facility] [address] [id number] [address] [place] [address], [place] [address] Jul, [facility] [address] [id number] [address] [place] [address], [place] [address] Jul, [facility] [address] [id number] [address] [place] [address], [place] [address] Jul, [facility] [address] [id number] [address] [place] [address], [place] [address] Jul, [facility] [address] [id number] [address] [place] [address], [place] [address] 13 Jul, 2013 [facility] [address] [id number] [address] [place] [address], [place] [address] Jul, [facility] [address] [id number] [address] [place] [address], [place] [address] Jul, [facility] [address] [id number] [address] [place] [address], [place] [address] Jul, [facility] [address] [id number] [address] [place] [address], [place] [address] Jul, [facility] [address] [id number] [address] [place] [address], [place] [address] Jul, [facility] [address] [id number] [address] [place] [address], [place] [address] Jun, [facility] [address] [id number] [address] [place] [address], [place] [address] Jun, [facility] [address] [id number] [address] [place] [address], [place] [address] Jun, [facility] [address] [id number] [address] [place] [address], [place] [address] Jun, [facility] [address] [id number] [address] [place] [address], [place] [address] Jun, [facility] [address] [id number] [address] [place] [address], [place] [address] Jun, [facility] [address] [id number] [address] [place] [address], [place] [address] Jun, [facility] [address] [id number] [address] [place] [address], [place] [address] Jun, [facility] [address] [id number] [address] [place] [address], [place] [address] May, [facility] [address] [id number] [address] [place] [address], [place] [address] May, [facility] [address] [id number] [address] [place] [address], [place] [address] May, [facility] [address] [id number] [address] [place] [address], [place] [address] May, [facility] [address] [id number] [address] [place] [address], [place] [address] May, [facility] [address] [id number] [address] [place] [address], [place] [address] May, [facility] [address] [id number] [address] [place] [address], [place] [address] May, [facility] [address] [id number] [address] [place] [address], [place] [address] May, [facility] [address] [id number] [address] [place] [address], [place] [address] Apr, [facility] [address] [id number] [address] [place] [address] Apr, [facility] [address] [id number] [address] [place] [address], [place] [address] Apr, [facility] [address] [id number] [address] [place] [address] Apr, [facility] [address] [id number] [address] [place] [address] Apr, [facility] [address] [id number] [address] [place] [address] Apr, [facility] [address] [id number] [address] [place] [address], [place] [address] Mar, [facility] [address] [id number] [address] [place] [address] Mar, [facility] [address] [id number] [address] [place] [address], [place] [address] Mar, [facility] [address] [id number] [address] [place] [address], [place] [address] Mar, [facility] [address] [id number] [address] [place] [address], [place] [address] Mar, [facility] [address] [id number] [address] [place] [address], [place] [address] Mar, [facility] [address] [id number] [address] [place] [address], [place] [address] Mar, [facility] [address] [id number] [address] [place] [address], [place] [address] 30 Feb, 2012 [facility] [address] [id number] [address] [place] [address], [place] [address] 30 Feb, 2013 [facility] [address] [id number] [address] [place] [address], [place] [address] 27 Feb, 2013 [facility] [address] [id number] [address] [place] [address], [place] [address] Feb, 2012 [facility] [address] [id number] [address] [place] [address], [place] [address] Feb, [facility] [address] [id number] [address] [place] [address], [place] [address] Feb, [facility] [address] [id number] [address] [place] [address], [place] [address] Jan, [facility] [address] [id number] [address] [place] [address], [place] [address] Jan, [facility] [address] [id number] [address] [place] [address], [place] [address] Jan, [facility] [address] [id number] [address] [place] [address], [place] [address] Jan, [facility] [address] [id number] [address] [place] [address], [place] [address] Jan, [facility] [address] [id number] [address] [place] [address], [place] [address] Jan, [facility] [address] [id number] [address] [place] [address], [place] [address] Jan, [facility] [address] [id number] [address] [place] [address], [place] [address] Jan, [facility] [address] [id number] [address] [place] [address], [place] [address] Jan, [facility] [address] [id number] [address] [place] [address], [place] [address] Dec, [facility] [address] [id number] [address] [place] [address], [place] [address] Dec, [facility] [address] [id number] [address] [place] [address], [place] [address] Dec, [facility] [address] [id number] [address] [place] [address], [place] [address] Dec, [facility] [address] [id number] [address] [place] [address], [place] [address] Dec, [facility] [address] [id number] [address] [place] [address], [place] [address] Dec, [facility] [address] [id number] [address] [place] [address], [place] [address] Dec, [facility] [address] [id number] [address] [place] [address], [place] [address] Dec, [facility] [address] [id number] [address] [place] [address], [place] [address] Dec, [facility] [address] [id number] [address] [place] [address], [place] [address] Dec, [facility] [address] [id number] [address] [place] [address], [place] [address] Dec, [facility] [address] [id number] [address] [place] [address], [place] [address] Dec, [facility] [address] [id number] [address] [place] [address], [place] [address] Dec, [facility] [address] [id number] [address] [place] [address], [place] [address] Nov, [facility] [address] [id number] [address] [place] [address], [place] [address] Nov, [facility] [address] [id number] [address] [place] [address], [place] [address] Nov, [facility] [address] [id number] [address] [place] [address], [place] [address] Nov, [facility] [address] [id number] [address] [place] [address], [place] [address] October, [facility] [address] [id number] [address] [place] [address], [place] [address] October, [facility] [address] [id number] [address] [place] [address], [place] [address] October, [facility] [address] [id number] [address] [place] [address], [place] [address] October, [facility] [address] [id number] [address] [place] [address], [place] [address] October, [facility] [address] [id number] [address] [place] [address], [place] [address] October, [facility] [address] [id number] [address] [place] [address], [place] [address] Sep, [facility] [address] [id number] [address] [place] [address], [place] [address] Sep, [facility] [address] [id number] [address] [place] [address], [place] [address] Sep, [facility] [address] [id number] [address] [place] [address], [place] [address] Sep, [facility] [address] [id number] [address] [place] [address], [place] [address] Sep, [facility] [address] [id number] [facility] [place] [address] 16 Sep, 2012 [facility] [address] [id number] [address] [place] [address], [place] [address] 12 Sep, 2012 [facility] [address] [id number] [address] [place] [address], [place] [address] Sep, [facility] [address] [id number] [address] [place] [address], [place] [address] Sep, [facility] [address] [id number] [address] [place] [address], [place] [address] Sep, [facility] [address] [id number] [address] [place] [address], [place] [address] Sep, [facility] [address] [id number] [address] [place] [address], [place] [address] Aug, [facility] [address] [id number] [address] [place] [address], [place] [address] 25 Aug, 2012 [facility] [address] [id number] [address] [place] [address], [place] [address] 25 Aug, 2012 [facility] [address] [id number] [address] [place] [address], [place] [address] 21 Aug, 2012 [facility] [address] [id number] [address] [place] [address], [place] [address] 19 Aug, 2012 [facility] [address] [id number] [address] [place] [address], [place] [address] 18 Aug, 2012 [facility] [address] [id number] [address] [place] [address], [place] [address] 17 Aug, 2012 [facility] [address] [id number] [address] [place] [address], [place] [address] 15 Aug, 2012 [facility] [address] [id number] [address] [place] [address], [place] [address] 15 Aug, 2012 [facility] [address] [id number] [address] [place] [address], [place] [address] Aug, [facility] [address] [id number] [address] [place] [address], [place] [address] Aug, [facility] [address] [id number] [address] [place] [address], [place] [address] Aug, [facility] [address] [id number] [address] [place] [address], [place] [address] Jul, [facility] [address] [id number] [address] [place] [address], [place] [address] Jul, [facility] [address] [id number] [address] [place] [address], [place] [address] Jul, [facility] [address] [id number] [address] [place] [address], [place] [address] Jul, [facility] [address] [id number] [address] [place] [address], [place] [address] Jul, [facility] [address] [id number] [address] [place] [address], [place] [address] Jul, [facility] [address] [id number] [address] [place] [address], [place] [address] Jul, [facility] [address] [id number] [address] [place] [address], [place] [address] Jul, [facility] [address] [id number] [address] [place] [address], [place] [address] Jul, [facility] [address] [id number] [address] [place] [address], [place] [address] Jul, [facility] [address] [id number] [address] [place] [address], [place] [address] May, [facility] [address] [id number] [place] [id number] May, [facility] [address] [id number] [address] [place] [address], [place] [address] May, [facility] [address] [id number] [address] [place] [id number] May, [facility] [address] [facility] [id number] [address] [place] [id number] May, [facility] [address] [facility] [id number] [address] [place] [id number] Apr, [facility] [place] [address] [id number] [place] [id number] Apr, [facility] [address] [facility] [id number] [address] [place] [id number] Apr, [facility] [address] [facility] [id number] [address] [place] [id number] Mar, [facility] [place] [address] [id number] [place] [id number] Mar, [facility] [address] [facility] [id number] [address] [place] [id number] Mar, [facility] [place] [address] [id number] [place] [id number] Feb, [facility] [address] [facility] [id number] [address] [place] [id number] Feb, [facility] [address] [facility] [id number] [address] [place] [id number] Feb, [facility] [place] [address] [id number] [place] [id number] Feb, [facility] [place] [address] [id number] [place] [id number] Feb, [facility] [place] [address] [id number] [place] [id number] Jan, [facility] [address] [id number] [address] [place] [address], [place] [address] Jan, [facility] [place] [address] [id number] [place] [id number] Jan, [facility] [place] [address] [id number] [place] [id number] Jan, [facility] [place] [address] [id number] [place] [id number] Jan, [facility] [address] [facility] [id number] [address] [place] [address], [place] [address] Jan, [facility] [address] [facility] [id number] [address] [place] [address], [place] [address] Jan, [facility] [address] [facility] [id number] [address] [place] [address], [place] [address] Aug, [facility] [place] [address] [id number] [place] [id number] Aug, [facility] [address] [facility] [id number] [address] [place] [address], [place] [address] Jul, [facility] [address] [facility] [id number] [address] [place] [address], [place] [address] Jul, [facility] [address] [facility] [id number] [address] [place] [address], [place] [address] Jul, [facility] [place] [address] [id number] [place] [id number] Jul, [facility] [address] [facility] [id number] [address] [place] [address], [place] [address] Jul, [facility] [place] [address] [id number] [place] [id number] Jul, [facility] [address] [facility] [id number] [address] [place] [address], [place] [address] Jul, [facility] [place] [address] [id number] [place] [id number] Jul, [facility] [place] [address] [id number] [place] [id number] Jul, [facility] [place] [address] [id number] [place] [id number] Jul, [facility] [address] [facility] [id number] [address] [place] [address], [place] [address] May, [facility] [address] [id number] [address] [place] [id number] May, [facility] [address] [id number] [address] [place] [id number] May, [facility] [address] [id number] [address] [place] [id number] Apr, [facility] [address] [id number] [address] [place] [id number] Jan, [facility] [address] [id number] [address] [place] [id number] Jan, [facility] [address] [id number] [address] [place] [id number] Dec, [facility] [address] [id number] [address] [place] [id number] Dec, [facility] [address] [id number] [address] [place] [id number] May, [facility] [address] [id number] [address] [place] [id number] Mar, [facility] [address] [id number] [address] [place] [id number] Mar, [facility] [address] [id number] [address] [place] [id number] Jan, IMMUNIZATIONS No Known Immunizations SOCIAL HISTORY [...]
--- OUTSIDE RECORDS SUMMARY | 2020-01-28 12:26 | XMS REPORT ---
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.01 Active 686796169 Problem History of venous thromboembolism V12.51 Active 424548627 Problem Cellulitis of unspecified part of limb L03.119 Active 862421861 Problem Gastroesophageal reflux disease without esophagitis K21.9 Active 896748677 Problem History of pulmonary embolism Z86.711 Active 340792245 Problem Pseudotumor cerebri G93.2 Active 49719927 Problem History of DVT (deep vein thrombosis) Z86.718 Active 052677853 ALLERGIES No Information ENCOUNTERS Encounter Location Date Diagnosis [place] [id number] [facility] [id number] [address] [place] [address] Apr, alf (current) use of 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 Z79.01 [facility] [address] [facility] [id number] [address] [place] [address] Apr, alf 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.01 [facility] [address] [facility] [id number] [address] [place] [address] Apr, Cellulitis of unspecified pa rt of limb L03.119 ; Allergic contact dermatitis due to adhesives L23.1 and Chronic pain syndrome G89.4 [facility] [address] [facility] [id number] [address] [place] [address] Apr, [place] [address] [place] [id number] [address] [place] [address] Apr, long term care social worker 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.01 ; Cellulitis of unspecified part of limb L03.119 ; Chronic pain syndrome G89.4 and Anxiety F41.9 [facility] [address] [place] [id number] [address] [place] [address] 16 Apr, 2015 [facility] [address] [place] [id number] [place] [address] Apr, [place] [address] [place] [id number] [place] [address] Mar, [place] [address] [address] Mar, [place] [address] [address] Mar, Sore throat J02.9 ; Gastroes ophageal reflux disease without esophagitis K21.9 ; Pseudotumor cerebri G93.2 ; Chronic pain syndrome G89.4 ; Choriocarcinoma C58 ; History of pulmonary embolism Z86.711 ; History of DVT (deep vein thrombosis) Z86.718 ; Anxiety F41.9 and Tachycardia R00.0 [place] [address] [address] Feb, Anxiety 300.00 and Chronic p ain 338.29 [place] [address] [place] [id number] [address] [place] [address] Feb, [place] [address] [place] [id number] [address] [place] [address] Feb, [place] [address] [address] Jan, long term care social worker 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 therapy V58.61 and Dysuria 788.1 [place] [address] [place] [id number] [place] [address] Jan, Dysuria 788.1 [facility] [address] [place] [id number] [address] [place] [address] Jan, Anxiety 300.00 and Chronic p ain 338.29 [facility] [address] [place] [id number] [place] [address] Jan, [facility] [address] [address] Jan, [facility] [address] [address] Jan, [place] [address] [address] Dec, Weakness 780.79 [place] [address] [address] Dec, alf 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 therapy V58.61 [place] [address] [address] Dec, Palpitations 785.1 ; Tremor 781.0 ; Weakness 780.79 ; alf 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 therapy V58.61 and Yeast vaginitis 112.1 [place] [address] [place] [id number] [address] [place] [address] Dec, [place] [address] [address] Dec, Cervicalgia 723.1 ; Tachycar yoseph 785.0 ; Pseudotumor cerebri 348.2 and History of venous thromboembolism V12.51 [place] [address] [address] Nov, [place] [address] [address] Nov, [place] [address] [address] Nov, Tachycardia 785.0 ; Pseudotu mor cerebri 348.2 ; Anxiety 300.00 and History of venous thromboembolism V12.51 [facility] [address] [id number] [address] [place] [address] Nov, [facility] [address] [id number] [address] [place] [address] 18 Nov, 2014 [facility] [address] [id number] [address] [place] [address] Nov, [facility] [address] [id number] [address] [place] [address] Nov, [facility] [address] [facility] [id number] [address] [place] [address] Nov, [facility] [address] [facility] [id number] [address] [place] [address] Nov, [facility] [address] [facility] [id number] [address] [place] [address] Nov, [facility] [address] [facility] [id number] [address] [place] [address] October, [facility] [address] [facility] [id number] [address] [place] [address] October, [facility] [address] [place] [id number] [address] [place] [address] October, Pain in thoracic spine 724.1 and Tachycardia 785.0 [facility] [address] [id number] [address] [place] [address] October, [facility] [address] [id number] [address] [place] [address] October, [facility] [address] [facility] [id number] [address] [place] [address] 14 Sep, 2014 [facility] [address] [facility] [id number] [address] [place] [address] Sep, [facility] [address] [id number] [facility] [place] [address] Aug, [facility] [address] [id number] [address] [place] [address], [place] [address] Aug, [facility] [address] [id number] [address] [place] [address], [place] [address] Aug, [facility] [address] [id number] [address] [place] [address], [place] [address] Aug, [facility] [address] [id number] [address] [place] [address], [place] [address] Aug, [facility] [address] [id number] [address] [place] [address], [place] [address] Aug, [facility] [address] [id number] [address] [place] [address], [place] [address] Aug, [facility] [address] [id number] [address] [place] [address], [place] [address] Aug, [facility] [address] [id number] [address] [place] [address], [place] [address] Aug, [facility] [address] [id number] [address] [place] [address], [place] [address] Aug, [facility] [address] [id number] [address] [place] [address], [place] [address] Aug, [facility] [address] [id number] [address] [place] [address], [place] [address] Aug, 2014 [facility] [address] [id number] [address] [place] [address], [place] [address] Jul, [facility] [address] [id number] [address] [place] [address], [place] [address] Jul, [facility] [address] [id number] [address] [place] [address], [place] [address] Jul, [facility] [address] [id number] [address] [place] [address], [place] [address] Jul, [facility] [address] [id number] [address] [place] [address], [place] [address] 23 Jul, 2014 [facility] [address] [id number] [address] [place] [address], [place] [address] 23 Jul, 2014 [facility] [address] [id number] [address] [place] [address], [place] [address] 23 Jul, 2014 [facility] [address] [id number] [address] [place] [address], [place] [address] 23 Jul, 2014 [facility] [address] [id number] [address] [place] [address], [place] [address] 20 Jul, 2014 [facility] [address] [id number] [address] [place] [address], [place] [address] 20 Jul, 2014 [facility] [address] [id number] [address] [place] [address], [place] [address] 19 Jul, 2014 [facility] [address] [id number] [address] [place] [address], [place] [address] 19 Jul, 2014 [facility] [address] [id number] [address] [place] [address], [place] [address] 17 Jul, 2014 [facility] [address] [id number] [address] [place] [address], [place] [address] 17 Jul, 2014 [facility] [address] [id number] [address] [place] [address], [place] [address] 16 Jul, 2014 [facility] [address] [id number] [address] [place] [address], [place] [address] 16 Jul, 2014 [facility] [address] [id number] [address] [place] [address], [place] [address] 16 Jul, 2014 [facility] [address] [id number] [address] [place] [address] 16 Jul, 2014 [facility] [address] [id number] [address] [place] [address] 13 Jul, 2014 [facility] [address] [id number] [address] [place] [address], [place] [address] Jul, [facility] [address] [id number] [address] [place] [address], [place] [address] Jul, [facility] [address] [id number] [address] [place] [address], [place] [address] Jul, 2014 [facility] [address] [id number] [address] [place] [address], [place] [address] Jul, 2014 [facility] [address] [id number] [address] [place] [address], [place] [address] Jul, [facility] [address] [id number] [address] [place] [address], [place] [address] Jul, [facility] [address] [id number] [address] [place] [address], [place] [address] Jul, [facility] [address] [id number] [address] [place] [address], [place] [address] Jul, [facility] [address] [id number] [address] [place] [address], [place] [address] Jul, [facility] [address] [id number] [address] [place] [address], [place] [address] Jul, [facility] [address] [id number] [address] [place] [address], [place] [address] Jul, [facility] [address] [id number] [address] [place] [address], [place] [address] Jun, [facility] [address] [id number] [address] [place] [address], [place] [address] Jun, [facility] [address] [id number] [address] [place] [address], [place] [address] Jun, [facility] [address] [id number] [address] [place] [address], [place] [address] Jun, [facility] [address] [id number] [address] [place] [address], [place] [address] Jun, [facility] [address] [id number] [address] [place] [address], [place] [address] Jun, [facility] [address] [id number] [address] [place] [address], [place] [address] Jun, [facility] [address] [id number] [address] [place] [address], [place] [address] Jun, [facility] [address] [id number] [address] [place] [address], [place] [address] Jun, [facility] [address] [id number] [address] [place] [address], [place] [address] Jun, [facility] [address] [id number] [address] [place] [address], [place] [address] Jun, [facility] [address] [id number] [address] [place] [address], [place] [address] Jun, [facility] [address] [id number] [address] [place] [address], [place] [address] Jun, [facility] [address] [id number] [address] [place] [address], [place] [address] Jun, [facility] [address] [id number] [address] [place] [address], [place] [address] Jun, [facility] [address] [id number] [address] [place] [address], [place] [address] Jun, [facility] [address] [id number] [address] [place] [address], [place] [address] Jun, [facility] [address] [id number] [address] [place] [address], [place] [address] Jun, [facility] [address] [id number] [address] [place] [address], [place] [address] Jun, [facility] [address] [id number] [address] [place] [address], [place] [address] Jun, [facility] [address] [id number] [address] [place] [address], [place] [address] May, [facility] [address] [id number] [address] [place] [address], [place] [address] May, [facility] [address] [id number] [address] [place] [address], [place] [address] May, [facility] [address] [id number] [address] [place] [address], [place] [address] May, [facility] [address] [id number] [address] [place] [address], [place] [address] May, [facility] [address] [id number] [address] [place] [address], [place] [address] May, [facility] [address] [id number] [address] [place] [address], [place] [address] May, [facility] [address] [id number] [address] [place] [address], [place] [address] May, [facility] [address] [id number] [address] [place] [address], [place] [address] May, [facility] [address] [id number] [address] [place] [address], [place] [address] May, [facility] [address] [id number] [address] [place] [address], [place] [address] May, [facility] [address] [id number] [address] [place] [address], [place] [address] 18 May, 2014 [facility] [address] [id number] [address] [place] [address], [place] [address] 18 May, 2014 [facility] [address] [id number] [address] [place] [address], [place] [address] 17 May, 2014 [facility] [address] [id number] [address] [place] [address], [place] [address] 16 May, 2014 [facility] [address] [id number] [address] [place] [address], [place] [address] 16 May, 2014 [facility] [address] [id number] [address] [place] [address], [place] [address] 15 May, 2014 [facility] [address] [id number] [address] [place] [address], [place] [address] 15 May, 2014 [facility] [address] [id number] [address] [place] [address], [place] [address] May, [facility] [address] [id number] [address] [place] [address], [place] [address] May, [facility] [address] [id number] [address] [place] [address], [place] [address] May, [facility] [address] [id number] [address] [place] [address], [place] [address] May, [facility] [address] [id number] [address] [place] [address], [place] [address] May, [facility] [address] [id number] [address] [place] [address], [place] [address] May, [facility] [address] [id number] [address] [place] [address], [place] [address] May, [facility] [address] [id number] [address] [place] [address], [place] [address] May, [facility] [address] [id number] [address] [place] [address], [place] [address] May, [facility] [address] [id number] [address] [place] [address], [place] [address] May, [facility] [address] [id number] [address] [place] [address], [place] [address] May, [facility] [address] [id number] [address] [place] [address], [place] [address] May, [facility] [address] [id number] [address] [place] [address], [place] [address] May, [facility] [address] [id number] [address] [place] [address], [place] [address] May, [facility] [address] [id number] [address] [place] [address], [place] [address] May, [facility] [address] [id number] [address] [place] [address], [place] [address] May, [facility] [address] [id number] [address] [place] [address], [place] [address] Apr, [facility] [address] [id number] [address] [place] [address], [place] [address] Apr, [facility] [address] [id number] [address] [place] [address], [place] [address] Apr, [facility] [address] [id number] [address] [place] [address], [place] [address] Apr, [facility] [address] [id number] [address] [place] [address], [place] [address] Apr, [facility] [address] [id number] [address] [place] [address], [place] [address] Apr, [facility] [address] [id number] [address] [place] [address], [place] [address] Apr, [facility] [address] [id number] [address] [place] [address], [place] [address] Apr, [facility] [address] [id number] [address] [place] [address], [place] [address] Apr, [facility] [address] [id number] [address] [place] [address], [place] [address] Apr, [facility] [address] [id number] [address] [place] [address], [place] [address] Mar, [facility] [address] [id number] [address] [place] [address], [place] [address] Mar, [facility] [address] [id number] [address] [place] [address] [address] Mar, [facility] [address] [id number] [address] [place] [address], [place] [address] 31 Mar, 2013 [facility] [address] [id number] [address] [place] [address], [place] [address] Mar, [facility] [address] [id number] [address] [place] [address], [place] [address] 30 Mar, 2014 [facility] [address] [id number] [address] [place] [address], [place] [address] Mar, [facility] [address] [id number] [address] [place] [address], [place] [address] Mar, [facility] [address] [id number] [address] [place] [address], [place] [address] Mar, [facility] [address] [id number] [address] [place] [address], [place] [address] Mar, [facility] [address] [id number] [address] [place] [address] Mar, [facility] [address] [id number] [address] [place] [address] Mar, [facility] [address] [id number] [address] [place] [address] Mar, [facility] [address] [id number] [address] [place] [address] Mar, 2013 [facility] [address] [id number] [address] [place] [address] Mar, 2013 [facility] [address] [id number] [address] [place] [address] Mar, [facility] [address] [id number] [address] [place] [address] Mar, [facility] [address] [id number] [address] [place] [address] Mar, 2013 [facility] [address] [id number] [address] [place] [address], [place] [address] 02 Mar, 2013 [facility] [address] [id number] [address] [place] [address], [place] [address] 02 Mar, 2013 [facility] [address] [id number] [address] [place] [address], [place] [address] 05 Sep, 2013 [facility] [address] [id number] [address] [place] [address], [place] [address] 05 Sep, 2013 [facility] [address] [id number] [address] [place] [address], [place] [address] 04 Sep, 2013 [facility] [address] [id number] [address] [place] [address], [place] [address] 04 Sep, 2013 [facility] [address] [id number] [address] [place] [address], [place] [address] 03 Feb, 2013 [facility] [address] [id number] [address] [place] [address], [place] [address] 03 Feb, 2013 [facility] [address] [id number] [address] [place] [address], [place] [address] 02 Feb, 2013 [facility] [address] [id number] [address] [place] [address], [place] [address] Feb, 2013 [facility] [address] [id number] [address] [place] [address], [place] [address] 02 Feb, 2013 [facility] [address] [id number] [address] [place] [address], [place] [address] Feb, 2013 [facility] [address] [id number] [address] [place] [address], [place] [address] Jan, [facility] [address] [id number] [address] [place] [address], [place] [address] Jan, [facility] [address] [id number] [address] [place] [address], [place] [address] Jan, [facility] [address] [id number] [address] [place] [address], [place] [address] Jan, [facility] [address] [id number] [facility] [place] [address] Jan, [facility] [address] [id number] [address] [place] [address], [place] [address] Jan, [facility] [address] [id number] [address] [place] [address], [place] [address] Jan, [facility] [address] [id number] [address] [place] [address], [place] [address] Jan, [facility] [address] [id number] [address] [place] [address], [place] [address] Jan, [facility] [address] [id number] [address] [place] [address], [place] [address] Jan, [facility] [address] [id number] [address] [place] [address], [place] [address] Jan, [facility] [address] [id number] [address] [place] [address], [place] [address] Jan, [facility] [address] [id number] [address] [place] [address], [place] [address] Dec, [facility] [address] [id number] [address] [place], [place] [address], [place] [address] Dec, [facility] [address] [id number] [address] [place] [address], [place] [address] Dec, [facility] [address] [id number] [address] [place] [address], [place] [address] Dec, [facility] [address] [id number] [address] [place] [address], [place] [address] Dec, [facility] [address] [id number] [address] [place] [address], [place] [address] Dec, [facility] [address] [id number] [address] [place] [address], [place] [address] Dec, [facility] [address] [id number] [address] [place] [address], [place] [address] Dec, [facility] [address] [id number] [facility] [place] [address] Dec, [facility] [address] [id number] [address] [place] [address], [place] [address] Dec, [facility] [address] [id number] [address] [place] [address], [place] [address] Dec, [facility] [address] [id number] [address] [place] [address], [place] [address] Dec, [facility] [address] [id number] [address] [place] [address], [place] [address] Nov, [facility] [address] [id number] [address] [place] [address], [place] [address] Nov, [facility] [address] [id number] [address] [place] [address], [place] [address] Nov, [facility] [address] [id number] [address] [place] [address], [place] [address] Nov, [facility] [address] [id number] [address] [place] [address], [place] [address] Nov, [facility] [address] [id number] [address] [place] [address], [place] [address] Nov, [facility] [address] [id number] [address] [place] [address], [place] [address] Nov, [facility] [address] [id number] [address] [place] [address], [place] [address] Nov, [facility] [address] [id number] [address] [place] [address], [place] [address] Nov, [facility] [address] [id number] [address] [place] [address], [place] [address] Nov, [facility] [address] [id number] [address] [place] [address], [place] [address] Nov, [facility] [address] [id number] [facility] [place] [address] Nov, [facility] [address] [id number] [address] [place] [address], [place] [address] Nov, [facility] [address] [id number] [address] [place] [address], [place] [address] Nov, [facility] [address] [id number] [address] [place] [address], [place] [address] October, [facility] [address] [id number] [address] [place] [address], [place] [address] October, [facility] [address] [id number] [address] [place] [address], [place] [address] October, [facility] [address] [id number] [address] [place] [address], [place] [address] October, [facility] [address] [id number] [address] [place] [address], [place] [address] October, [facility] [address] [id number] [address] [place] [address], [place] [address] October, [facility] [address] [id number] [address] [place] [address], [place] [address] October, [facility] [address] [id number] [address] [place] [address], [place] [address] October, [facility] [address] [id number] [address] [place] [address], [place] [address] October, [facility] [address] [id number] [address] [place] [address], [place] [address] October, [facility] [address] [id number] [address] [place] [address], [place] [address] October, [facility] [address] [id number] [address] [place] [address], [place] [address] October, [facility] [address] [id number] [address] [place] [address], [place] [address] Sep, [facility] [address] [id number] [facility] [place] [address] Sep, [facility] [address] [id number] [address] [place] [address], [place] [address] Sep, [facility] [address] [id number] [facility] [place] [address] Sep, [facility] [address] [id number] [address] [place] [address], [place] [address] Sep, [facility] [address] [id number] [address] [place] [address], [place] [address] Sep, [facility] [address] [id number] [address] [place] [address], [place] [address] Aug, [facility] [address] [id number] [address] [place] [address], [place] [address] Aug, [facility] [address] [id number] [address] [place] [address], [place] [address] Aug, [facility] [address] [id number] [address] [place] [address], [place] [address] Aug, [facility] [address] [id number] [address] [place] [address], [place] [address] Aug, [facility] [address] [id number] [address] [place] [address], [place] [address] Aug, [facility] [address] [id number] [address] [place] [address], [place] [address] Jul, [facility] [address] [id number] [address] [place] [address], [place] [address] Jul, [facility] [address] [id number] [address] [place] [address], [place] [address] Jul, [facility] [address] [id number] [address] [place] [address], [place] [address] Jul, [facility] [address] [id number] [address] [place] [address], [place] [address] 13 Jul, 2013 [facility] [address] [id number] [address] [place] [address], [place] [address] Jul, [facility] [address] [id number] [address] [place] [address], [place] [address] Jul, [facility] [address] [id number] [address] [place] [address], [place] [address] Jul, [facility] [address] [id number] [address] [place] [address], [place] [address] Jul, [facility] [address] [id number] [address] [place] [address], [place] [address] Jul, [facility] [address] [id number] [address] [place] [address], [place] [address] Jun, [facility] [address] [id number] [address] [place] [address], [place] [address] Jun, [facility] [address] [id number] [address] [place] [address], [place] [address] Jun, [facility] [address] [id number] [address] [place] [address], [place] [address] Jun, [facility] [address] [id number] [address] [place] [address], [place] [address] Jun, [facility] [address] [id number] [address] [place] [address], [place] [address] Jun, [facility] [address] [id number] [address] [place] [address], [place] [address] Jun, [facility] [address] [id number] [address] [place] [address], [place] [address] Jun, [facility] [address] [id number] [address] [place] [address], [place] [address] May, [facility] [address] [id number] [address] [place] [address], [place] [address] May, [facility] [address] [id number] [address] [place] [address], [place] [address] May, [facility] [address] [id number] [address] [place] [address], [place] [address] May, [facility] [address] [id number] [address] [place] [address], [place] [address] May, [facility] [address] [id number] [address] [place] [address], [place] [address] May, [facility] [address] [id number] [address] [place] [address], [place] [address] May, [facility] [address] [id number] [address] [place] [address], [place] [address] May, [facility] [address] [id number] [address] [place] [address], [place] [address] Apr, [facility] [address] [id number] [address] [place] [address] Apr, [facility] [address] [id number] [address] [place] [address], [place] [address] Apr, [facility] [address] [id number] [address] [place] [address] Apr, [facility] [address] [id number] [address] [place] [address] Apr, [facility] [address] [id number] [address] [place] [address] Apr, [facility] [address] [id number] [address] [place] [address], [place] [address] Mar, [facility] [address] [id number] [address] [place] [address] Mar, [facility] [address] [id number] [address] [place] [address], [place] [address] Mar, [facility] [address] [id number] [address] [place] [address], [place] [address] Mar, [facility] [address] [id number] [address] [place] [address], [place] [address] Mar, [facility] [address] [id number] [address] [place] [address], [place] [address] Mar, [facility] [address] [id number] [address] [place] [address], [place] [address] Mar, [facility] [address] [id number] [address] [place] [address], [place] [address] 30 Feb, 2012 [facility] [address] [id number] [address] [place] [address], [place] [address] 30 Feb, 2013 [facility] [address] [id number] [address] [place] [address], [place] [address] 27 Feb, 2013 [facility] [address] [id number] [address] [place] [address], [place] [address] Feb, 2012 [facility] [address] [id number] [address] [place] [address], [place] [address] Feb, [facility] [address] [id number] [address] [place] [address], [place] [address] Feb, [facility] [address] [id number] [address] [place] [address], [place] [address] Jan, [facility] [address] [id number] [address] [place] [address], [place] [address] Jan, [facility] [address] [id number] [address] [place] [address], [place] [address] Jan, [facility] [address] [id number] [address] [place] [address], [place] [address] Jan, [facility] [address] [id number] [address] [place] [address], [place] [address] Jan, [facility] [address] [id number] [address] [place] [address], [place] [address] Jan, [facility] [address] [id number] [address] [place] [address], [place] [address] Jan, [facility] [address] [id number] [address] [place] [address], [place] [address] Jan, [facility] [address] [id number] [address] [place] [address], [place] [address] Jan, [facility] [address] [id number] [address] [place] [address], [place] [address] Dec, [facility] [address] [id number] [address] [place] [address], [place] [address] Dec, [facility] [address] [id number] [address] [place] [address], [place] [address] Dec, [facility] [address] [id number] [address] [place] [address], [place] [address] Dec, [facility] [address] [id number] [address] [place] [address], [place] [address] Dec, [facility] [address] [id number] [address] [place] [address], [place] [address] Dec, [facility] [address] [id number] [address] [place] [address], [place] [address] Dec, [facility] [address] [id number] [address] [place] [address], [place] [address] Dec, [facility] [address] [id number] [address] [place] [address], [place] [address] Dec, [facility] [address] [id number] [address] [place] [address], [place] [address] Dec, [facility] [address] [id number] [address] [place] [address], [place] [address] Dec, [facility] [address] [id number] [address] [place] [address], [place] [address] Dec, [facility] [address] [id number] [address] [place] [address], [place] [address] Dec, [facility] [address] [id number] [address] [place] [address], [place] [address] Nov, [facility] [address] [id number] [address] [place] [address], [place] [address] Nov, [facility] [address] [id number] [address] [place] [address], [place] [address] Nov, [facility] [address] [id number] [address] [place] [address], [place] [address] Nov, [facility] [address] [id number] [address] [place] [address], [place] [address] October, [facility] [address] [id number] [address] [place] [address], [place] [address] October, [facility] [address] [id number] [address] [place] [address], [place] [address] October, [facility] [address] [id number] [address] [place] [address], [place] [address] October, [facility] [address] [id number] [address] [place] [address], [place] [address] October, [facility] [address] [id number] [address] [place] [address], [place] [address] October, [facility] [address] [id number] [address] [place] [address], [place] [address] Sep, [facility] [address] [id number] [address] [place] [address], [place] [address] Sep, [facility] [address] [id number] [address] [place] [address], [place] [address] Sep, [facility] [address] [id number] [address] [place] [address], [place] [address] Sep, [facility] [address] [id number] [address] [place] [address], [place] [address] Sep, [facility] [address] [id number] [facility] [place] [address] 16 Sep, 2012 [facility] [address] [id number] [address] [place] [address], [place] [address] 12 Sep, 2012 [facility] [address] [id number] [address] [place] [address], [place] [address] Sep, [facility] [address] [id number] [address] [place] [address], [place] [address] Sep, [facility] [address] [id number] [address] [place] [address], [place] [address] Sep, [facility] [address] [id number] [address] [place] [address], [place] [address] Sep, [facility] [address] [id number] [address] [place] [address], [place] [address] Aug, [facility] [address] [id number] [address] [place] [address], [place] [address] 25 Aug, 2012 [facility] [address] [id number] [address] [place] [address], [place] [address] 25 Aug, 2012 [facility] [address] [id number] [address] [place] [address], [place] [address] 21 Aug, 2012 [facility] [address] [id number] [address] [place] [address], [place] [address] 19 Aug, 2012 [facility] [address] [id number] [address] [place] [address], [place] [address] 18 Aug, 2012 [facility] [address] [id number] [address] [place] [address], [place] [address] 17 Aug, 2012 [facility] [address] [id number] [address] [place] [address], [place] [address] 15 Aug, 2012 [facility] [address] [id number] [address] [place] [address], [place] [address] 15 Aug, 2012 [facility] [address] [id number] [address] [place] [address], [place] [address] Aug, [facility] [address] [id number] [address] [place] [address], [place] [address] Aug, [facility] [address] [id number] [address] [place] [address], [place] [address] Aug, [facility] [address] [id number] [address] [place] [address], [place] [address] Jul, [facility] [address] [id number] [address] [place] [address], [place] [address] Jul, [facility] [address] [id number] [address] [place] [address], [place] [address] Jul, [facility] [address] [id number] [address] [place] [address], [place] [address] Jul, [facility] [address] [id number] [address] [place] [address], [place] [address] Jul, [facility] [address] [id number] [address] [place] [address], [place] [address] Jul, [facility] [address] [id number] [address] [place] [address], [place] [address] Jul, [facility] [address] [id number] [address] [place] [address], [place] [address] Jul, [facility] [address] [id number] [address] [place] [address], [place] [address] Jul, [facility] [address] [id number] [address] [place] [address], [place] [address] Jul, [facility] [address] [id number] [address] [place] [address], [place] [address] May, [facility] [address] [id number] [place] [id number] May, [facility] [address] [id number] [address] [place] [address], [place] [address] May, [facility] [address] [id number] [address] [place] [address] May, [facility] [address] [facility] [id number] [address] [place] [address] May, [facility] [address] [facility] [id number] [address] [place] [address] Apr, [facility] [address] [id number] [place] [id number] Apr, [facility] [address] [facility] [id number] [address] [place] [address] Apr, [facility] [address] [facility] [id number] [address] [place] [id number] Mar, [facility] [address] [id number] [place] [id number] Mar, [facility] [address] [facility] [id number] [address] [place] [address] Mar, [facility] [address] [id number] [place] [id number] Feb, [facility] [address] [facility] [id number] [address] [place] [address] Feb, [facility] [address] [facility] [id number] [address] [place] [address] Feb, [facility] [address] [id number] [place] [id number] Feb, [facility] [address] [id number] [place] [id number] Feb, [facility] [address] [id number] [place] [id number] Jan, [facility] [address] [id number] [address] [place] [address], [place] [address] Jan, [facility] [address] [id number] [place] [id number] Jan, [facility] [address] [id number] [place] [id number] Jan, [facility] [address] [id number] [place] [id number] Jan, [facility] [address] [facility] [id number] [address] [place] [address], [place] [address] Jan, [facility] [address] [facility] [id number] [address] [place] [address], [place] [address] Jan, [facility] [address] [facility] [id number] [address] [place] [address], [place] [address] Aug, [facility] [address] [id number] [place] [id number] Aug, [facility] [address] [facility] [id number] [address] [place] [address], [place] [address] Jul, [facility] [address] [facility] [id number] [address] [place] [address], [place] [address] Jul, [facility] [address] [facility] [id number] [address] [place] [address], [place] [address] Jul, [facility] [address] [id number] [place] [id number] Jul, [facility] [address] [facility] [id number] [address] [place] [address], [place] [address] Jul, [facility] [address] [id number] [place] [id number] Jul, [facility] [address] [facility] [id number] [address] [place] [address], [place] [address] Jul, [facility] [address] [id number] [place] [id number] Jul, [facility] [address] [id number] [place] [id number] Jul, [facility] [address] [id number] [place] [id number] Jul, [facility] [address] [facility] [id number] [address] [place] [address], [place] [address] May, [facility] [address] [id number] [address] [place] [id number] May, [facility] [address] [id number] [address] [place] [id number] May, [facility] [address] [id number] [address] [place] [id number] Apr, [facility] [address] [id number] [address] [place] [id number] Jan, [facility] [address] [id number] [address] [place] [id number] Jan, [facility] [address] [id number] [address] [place] [id number] Dec, [facility] [address] [id number] [address] [place] [phone] Dec, [facility] [address] [id number] [address] [place] [phone] May, [facility] [address] [id number] [address] [place] [id number] Mar, [facility] [address] [id number] [address] [place] [phone] Mar, [facility] [address] [id number] [address] [place] [id number] Jan, IMMUNIZATIONS No Known Immunizations SOCIAL HISTORY [...]
--- OUTSIDE RECORDS SUMMARY | 2020-01-28 12:27 | XMS REPORT ---
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 608985587 Problem History of venous thromboembolism V12.51 Active 065285911 Problem Cellulitis of unspecified part of limb L03.119 Active 631171555 Problem Gastroesophageal reflux disease without esophagitis K21.9 Active 287183547 Problem History of pulmonary embolism Z86.711 Active 340865094 Problem Pseudotumor cerebri G93.2 Active 45780286 Problem History of DVT (deep vein thrombosis) Z86.718 Active 498259495 ALLERGIES No Information ENCOUNTERS Encounter Location Date Diagnosis [place] [id number] [facility] [id number] [address] [place] [address] Apr, 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 (current) use of 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 Z79.01 [facility] [address] [facility] [facility] [id number] [address] [place] [address] Apr, 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.01 [facility] [address] [facility] [id number] [address] [place] [address] Apr, Cellulitis of unspecified pa rt of limb L03.119 ; Allergic contact dermatitis due to adhesives L23.1 and Chronic pain syndrome G89.4 [facility] [address] [facility] [id number] [address] [place] [address] Apr, [place] [address] [place] [id number] [address] [place] [address] Apr, 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 ; Cellulitis of unspecified part of limb L03.119 ; Chronic pain syndrome G89.4 and Anxiety F41.9 [facility] [address] [place] [id number] [address] [place] [address] 16 Apr, 2015 [facility] [address] [place] [id number] [place] [address] Apr, [place] [address] [place] [id number] [place] [address] Mar, [place] [address] [address] Mar, [place] [address] [address] Mar, Sore throat J02.9 ; Gastroes ophageal reflux disease without esophagitis K21.9 ; Pseudotumor cerebri G93.2 ; Chronic pain syndrome G89.4 ; Choriocarcinoma C58 ; History of pulmonary embolism Z86.711 ; History of DVT (deep vein thrombosis) Z86.718 ; Anxiety F41.9 and Tachycardia R00.0 [place] [address] [address] Feb, Anxiety 300.00 and Chronic p ain 338.29 [place] [address] [place] [id number] [address] [place] [address] Feb, [place] [address] [place] [id number] [address] [place] [address] Feb, [place] [address] [address] Jan, 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.61 and Dysuria 788.1 [place] [address] [place] [id number] [place] [address] Jan, Dysuria 788.1 [facility] [address] [place] [id number] [address] [place] [address] Jan, Anxiety 300.00 and Chronic p ain 338.29 [facility] [address] [place] [id number] [place] [address] Jan, [facility] [address] [address] Jan, [facility] [address] [address] Jan, [place] [address] [address] Dec, Weakness 780.79 [place] [address] [address] Dec, 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 therapy V58.61 [place] [address] [address] Dec, Palpitations 785.1 ; Tremor 781.0 ; Weakness 780.79 ; 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 therapy V58.61 and Yeast vaginitis 112.1 [place] [address] [place] [id number] [address] [place] [address] Dec, [place] [address] [address] Dec, Cervicalgia 723.1 ; Tachycar yoseph 785.0 ; Pseudotumor cerebri 348.2 and History of venous thromboembolism V12.51 [place] [address] [address] Nov, [place] [address] [address] Nov, [place] [address] [address] Nov, Tachycardia 785.0 ; Pseudotu mor cerebri 348.2 ; Anxiety 300.00 and History of venous thromboembolism V12.51 [facility] [address] [id number] [address] [place] [address] Nov, [facility] [address] [id number] [address] [place] [address] 18 Nov, 2014 [facility] [address] [id number] [address] [place] [address] Nov, [facility] [address] [id number] [address] [place] [address] Nov, [facility] [address] [facility] [id number] [address] [place] [address] Nov, [facility] [address] [facility] [id number] [address] [place] [address] Nov, [facility] [address] [facility] [id number] [address] [place] [address] Nov, [facility] [address] [facility] [id number] [address] [place] [address] October, [facility] [address] [facility] [facility] [id number] [address] [place] [address] October, [facility] [address] [place] [id number] [address] [place] [address] October, Pain in thoracic spine 724.1 and Tachycardia 785.0 [facility] [address] [id number] [address] [place] [address] October, [facility] [address] [id number] [address] [place] [address] October, [facility] [address] [facility] [id number] [address] [place] [address] 14 Sep, 2014 [facility] [address] [facility] [facility] [id number] [address] [place] [address] Sep, [facility] [address] [id number] [facility] [place] [address] Aug, [facility] [address] [id number] [address] [place] [address], [place] [address] Aug, [facility] [address] [id number] [address] [place] [address], [place] [address] Aug, [facility] [address] [id number] [address] [place] [address], [place] [address] Aug, [facility] [address] [id number] [address] [place] [address], [place] [address] Aug, [facility] [address] [id number] [address] [place] [address], [place] [address] Aug, [facility] [address] [id number] [address] [place] [address], [place] [address] Aug, [facility] [address] [id number] [address] [place] [address], [place] [address] Aug, [facility] [address] [id number] [address] [place] [address], [place] [address] Aug, [facility] [address] [id number] [address] [place] [address], [place] [address] Aug, [facility] [address] [id number] [address] [place] [address], [place] [address] Aug, [facility] [address] [id number] [address] [place] [address], [place] [address] Aug, 2014 [facility] [address] [id number] [address] [place] [address], [place] [address] Jul, [facility] [address] [id number] [address] [place] [address], [place] [address] Jul, [facility] [address] [id number] [address] [place] [address], [place] [address] Jul, [facility] [address] [id number] [address] [place] [address], [place] [address] Jul, [facility] [address] [id number] [address] [place] [address], [place] [address] 23 Jul, 2014 [facility] [address] [id number] [address] [place] [address], [place] [address] 23 Jul, 2014 [facility] [address] [id number] [address] [place] [address], [place] [address] 23 Jul, 2014 [facility] [address] [id number] [address] [place] [address], [place] [address] 23 Jul, 2014 [facility] [address] [id number] [address] [place] [address], [place] [address] 20 Jul, 2014 [facility] [address] [id number] [address] [place] [address], [place] [address] 20 Jul, 2014 [facility] [address] [id number] [address] [place] [address], [place] [address] 19 Jul, 2014 [facility] [address] [id number] [address] [place] [address], [place] [address] 19 Jul, 2014 [facility] [address] [id number] [address] [place] [address], [place] [address] 17 Jul, 2014 [facility] [address] [id number] [address] [place] [address], [place] [address] 17 Jul, 2014 [facility] [address] [id number] [address] [place] [address], [place] [address] 16 Jul, 2014 [facility] [address] [id number] [address] [place] [address], [place] [address] 16 Jul, 2014 [facility] [address] [id number] [address] [place] [address], [place] [address] 16 Jul, 2014 [facility] [address] [id number] [address] [place] [address] 16 Jul, 2014 [facility] [address] [id number] [address] [place] [address] 13 Jul, 2014 [facility] [address] [id number] [address] [place] [address], [place] [address] Jul, [facility] [address] [id number] [address] [place] [address], [place] [address] Jul, [facility] [address] [id number] [address] [place] [address], [place] [address] Jul, 2014 [facility] [address] [id number] [address] [place] [address], [place] [address] Jul, 2014 [facility] [address] [id number] [address] [place] [address], [place] [address] Jul, [facility] [address] [id number] [address] [place] [address], [place] [address] Jul, [facility] [address] [id number] [address] [place] [address], [place] [address] Jul, [facility] [address] [id number] [address] [place] [address], [place] [address] Jul, [facility] [address] [id number] [address] [place] [address], [place] [address] Jul, [facility] [address] [id number] [address] [place] [address], [place] [address] Jul, [facility] [address] [id number] [address] [place] [address], [place] [address] Jul, [facility] [address] [id number] [address] [place] [address], [place] [address] Jun, [facility] [address] [id number] [address] [place] [address], [place] [address] Jun, [facility] [address] [id number] [address] [place] [address], [place] [address] Jun, [facility] [address] [id number] [address] [place] [address], [place] [address] Jun, [facility] [address] [id number] [address] [place] [address], [place] [address] Jun, [facility] [address] [id number] [address] [place] [address], [place] [address] Jun, [facility] [address] [id number] [address] [place] [address], [place] [address] Jun, [facility] [address] [id number] [address] [place] [address], [place] [address] Jun, [facility] [address] [id number] [address] [place] [address], [place] [address] Jun, [facility] [address] [id number] [address] [place] [address], [place] [address] Jun, [facility] [address] [id number] [address] [place] [address], [place] [address] Jun, [facility] [address] [id number] [address] [place] [address], [place] [address] Jun, [facility] [address] [id number] [address] [place] [address], [place] [address] Jun, [facility] [address] [id number] [address] [place] [address], [place] [address] Jun, [facility] [address] [id number] [address] [place] [address], [place] [address] Jun, [facility] [address] [id number] [address] [place] [address], [place] [address] Jun, [facility] [address] [id number] [address] [place] [address], [place] [address] Jun, [facility] [address] [id number] [address] [place] [address], [place] [address] Jun, [facility] [address] [id number] [address] [place] [address], [place] [address] Jun, [facility] [address] [id number] [address] [place] [address], [place] [address] Jun, [facility] [address] [id number] [address] [place] [address], [place] [address] May, [facility] [address] [id number] [address] [place] [address], [place] [address] May, [facility] [address] [id number] [address] [place] [address], [place] [address] May, [facility] [address] [id number] [address] [place] [address], [place] [address] May, [facility] [address] [id number] [address] [place] [address], [place] [address] May, [facility] [address] [id number] [address] [place] [address], [place] [address] May, [facility] [address] [id number] [address] [place] [address], [place] [address] May, [facility] [address] [id number] [address] [place] [address], [place] [address] May, [facility] [address] [id number] [address] [place] [address], [place] [address] May, [facility] [address] [id number] [address] [place] [address], [place] [address] May, [facility] [address] [id number] [address] [place] [address], [place] [address] May, [facility] [address] [id number] [address] [place] [address], [place] [address] 18 May, 2014 [facility] [address] [id number] [address] [place] [address], [place] [address] 18 May, 2014 [facility] [address] [id number] [address] [place] [address], [place] [address] 17 May, 2014 [facility] [address] [id number] [address] [place] [address], [place] [address] 16 May, 2014 [facility] [address] [id number] [address] [place] [address], [place] [address] 16 May, 2014 [facility] [address] [id number] [address] [place] [address], [place] [address] 15 May, 2014 [facility] [address] [id number] [address] [place] [address], [place] [address] 15 May, 2014 [facility] [address] [id number] [address] [place] [address], [place] [address] May, [facility] [address] [id number] [address] [place] [address], [place] [address] May, [facility] [address] [id number] [address] [place] [address], [place] [address] May, [facility] [address] [id number] [address] [place] [address], [place] [address] May, [facility] [address] [id number] [address] [place] [address], [place] [address] May, [facility] [address] [id number] [address] [place] [address], [place] [address] May, [facility] [address] [id number] [address] [place] [address], [place] [address] May, [facility] [address] [id number] [address] [place] [address], [place] [address] May, [facility] [address] [id number] [address] [place] [address], [place] [address] May, [facility] [address] [id number] [address] [place] [address], [place] [address] May, [facility] [address] [id number] [address] [place] [address], [place] [address] May, [facility] [address] [id number] [address] [place] [address], [place] [address] May, [facility] [address] [id number] [address] [place] [address], [place] [address] May, [facility] [address] [id number] [address] [place] [address], [place] [address] May, [facility] [address] [id number] [address] [place] [address], [place] [address] May, [facility] [address] [id number] [address] [place] [address], [place] [address] May, [facility] [address] [id number] [address] [place] [address], [place] [address] Apr, [facility] [address] [id number] [address] [place] [address], [place] [address] Apr, [facility] [address] [id number] [address] [place] [address], [place] [address] Apr, [facility] [address] [id number] [address] [place] [address], [place] [address] Apr, [facility] [address] [id number] [address] [place] [address], [place] [address] Apr, [facility] [address] [id number] [address] [place] [address], [place] [address] Apr, [facility] [address] [id number] [address] [place] [address], [place] [address] Apr, [facility] [address] [id number] [address] [place] [address], [place] [address] Apr, [facility] [address] [id number] [address] [place] [address], [place] [address] Apr, [facility] [address] [id number] [address] [place] [address], [place] [address] Apr, [facility] [address] [id number] [address] [place] [address], [place] [address] Mar, [facility] [address] [id number] [address] [place] [address], [place] [address] Mar, [facility] [address] [id number] [address] [place] [address] [address] Mar, [facility] [address] [id number] [address] [place] [address], [place] [address] 31 Mar, 2013 [facility] [address] [id number] [address] [place] [address], [place] [address] Mar, [facility] [address] [id number] [address] [place] [address], [place] [address] 30 Mar, 2014 [facility] [address] [id number] [address] [place] [address], [place] [address] Mar, [facility] [address] [id number] [address] [place] [address], [place] [address] Mar, [facility] [address] [id number] [address] [place] [address], [place] [address] Mar, [facility] [address] [id number] [address] [place] [address], [place] [address] Mar, [facility] [address] [id number] [address] [place] [id number] Mar, [facility] [address] [id number] [address] [place] [id number] Mar, [facility] [address] [id number] [address] [place] [phone] Mar, [facility] [address] [id number] [address] [place] [id number] Mar, 2013 [facility] [address] [id number] [address] [place] [id number] Mar, 2013 [facility] [address] [id number] [address] [place] [phone] Mar, [facility] [address] [id number] [address] [place] [id number] Mar, [facility] [address] [id number] [address] [place] [phone] Mar, 2013 [facility] [address] [id number] [address] [place] [address], [place] [address] 02 Mar, 2013 [facility] [address] [id number] [address] [place] [address], [place] [address] 02 Mar, 2013 [facility] [address] [id number] [address] [place] [address], [place] [address] 05 Sep, 2013 [facility] [address] [id number] [address] [place] [address], [place] [address] 05 Sep, 2013 [facility] [address] [id number] [address] [place] [address], [place] [address] 04 Sep, 2013 [facility] [address] [id number] [address] [place] [address], [place] [address] 04 Sep, 2013 [facility] [address] [id number] [address] [place] [address], [place] [address] 03 Feb, 2013 [facility] [address] [id number] [address] [place] [address], [place] [address] 03 Feb, 2013 [facility] [address] [id number] [address] [place] [address], [place] [address] 02 Feb, 2013 [facility] [address] [id number] [address] [place] [address], [place] [address] Feb, 2013 [facility] [address] [id number] [address] [place] [address], [place] [address] 02 Feb, 2013 [facility] [address] [id number] [address] [place] [address], [place] [address] Feb, 2013 [facility] [address] [id number] [address] [place] [address], [place] [address] Jan, [facility] [address] [id number] [address] [place] [address], [place] [address] Jan, [facility] [address] [id number] [address] [place] [address], [place] [address] Jan, [facility] [address] [id number] [address] [place] [address], [place] [address] Jan, [facility] [address] [id number] [facility] [place] [address] Jan, [facility] [address] [id number] [address] [place] [address], [place] [address] Jan, [facility] [address] [id number] [address] [place] [address], [place] [address] Jan, [facility] [address] [id number] [address] [place] [address], [place] [address] Jan, [facility] [address] [id number] [address] [place] [address], [place] [address] Jan, [facility] [address] [id number] [address] [place] [address], [place] [address] Jan, [facility] [address] [id number] [address] [place] [address], [place] [address] Jan, [facility] [address] [id number] [address] [place] [address], [place] [address] Jan, [facility] [address] [id number] [address] [place] [address], [place] [address] Dec, [facility] [address] [id number] [address] [place] [address], [place] [address] Dec, [facility] [address] [id number] [address] [place] [address], [place] [address] Dec, [facility] [address] [id number] [address] [place] [address], [place] [address] Dec, [facility] [address] [id number] [address] [place] [address], [place] [address] Dec, [facility] [address] [id number] [address] [place] [address], [place] [address] Dec, [facility] [address] [id number] [address] [place] [address], [place] [address] Dec, [facility] [address] [id number] [address] [place] [address], [place] [address] Dec, [facility] [address] [id number] [facility] [place] [address] Dec, [facility] [address] [id number] [address] [place] [address], [place] [address] Dec, [facility] [address] [id number] [address] [place] [address], [place] [address] Dec, [facility] [address] [id number] [address] [place] [address], [place] [address] Dec, [facility] [address] [id number] [address] [place] [address], [place] [address] Nov, [facility] [address] [id number] [address] [place] [address], [place] [address] Nov, [facility] [address] [id number] [address] [place] [address], [place] [address] Nov, [facility] [address] [id number] [address] [place] [address], [place] [address] Nov, [facility] [address] [id number] [address] [place] [address], [place] [address] Nov, [facility] [address] [id number] [address] [place] [address], [place] [address] Nov, [facility] [address] [id number] [address] [place] [address], [place] [address] Nov, [facility] [address] [id number] [address] [place] [address], [place] [address] Nov, [facility] [address] [id number] [address] [place] [address], [place] [address] Nov, [facility] [address] [id number] [address] [place] [address], [place] [address] Nov, [facility] [address] [id number] [address] [place] [address], [place] [address] Nov, [facility] [address] [id number] [facility] [place] [address] Nov, [facility] [address] [id number] [address] [place] [address], [place] [address] Nov, [facility] [address] [id number] [address] [place] [address], [place] [address] Nov, [facility] [address] [id number] [address] [place] [address], [place] [address] October, [facility] [address] [id number] [address] [place] [address], [place] [address] October, [facility] [address] [id number] [address] [place] [address], [place] [address] October, [facility] [address] [id number] [address] [place] [address], [place] [address] October, [facility] [address] [id number] [address] [place] [address], [place] [address] October, [facility] [address] [id number] [address] [place] [address], [place] [address] October, [facility] [address] [id number] [address] [place] [address], [place] [address] October, [facility] [address] [id number] [address] [place] [address], [place] [address] October, [facility] [address] [id number] [address] [place] [address], [place] [address] October, [facility] [address] [id number] [address] [place] [address], [place] [address] October, [facility] [address] [id number] [address] [place] [address], [place] [address] October, [facility] [address] [id number] [address] [place] [address], [place] [address] October, [facility] [address] [id number] [address] [place] [address], [place] [address] Sep, [facility] [address] [id number] [facility] [place] [address] Sep, [facility] [address] [id number] [address] [place] [address], [place] [address] Sep, [facility] [address] [id number] [facility] [place] [address] Sep, [facility] [address] [id number] [address] [place] [address], [place] [address] Sep, [facility] [address] [id number] [address] [place] [address], [place] [address] Sep, [facility] [address] [id number] [address] [place] [address], [place] [address] Aug, [facility] [address] [id number] [address] [place] [address], [place] [address] Aug, [facility] [address] [id number] [address] [place] [address], [place] [address] Aug, [facility] [address] [id number] [address] [place] [address], [place] [address] Aug, [facility] [address] [id number] [address] [place] [address], [place] [address] Aug, [facility] [address] [id number] [address] [place] [address], [place] [address] Aug, [facility] [address] [id number] [address] [place] [address], [place] [address] Jul, [facility] [address] [id number] [address] [place] [address], [place] [address] Jul, [facility] [address] [id number] [address] [place] [address], [place] [address] Jul, [facility] [address] [id number] [address] [place] [address], [place] [address] Jul, [facility] [address] [id number] [address] [place] [address], [place] [address] 13 Jul, 2013 [facility] [address] [id number] [address] [place] [address], [place] [address] Jul, [facility] [address] [id number] [address] [place] [address], [place] [address] Jul, [facility] [address] [id number] [address] [place] [address], [place] [address] Jul, [facility] [address] [id number] [address] [place] [address], [place] [address] Jul, [facility] [address] [id number] [address] [place] [address], [place] [address] Jul, [facility] [address] [id number] [address] [place] [address], [place] [address] Jun, [facility] [address] [id number] [address] [place] [address], [place] [address] Jun, [facility] [address] [id number] [address] [place] [address], [place] [address] Jun, [facility] [address] [id number] [address] [place] [address], [place] [address] Jun, [facility] [address] [id number] [address] [place] [address], [place] [address] Jun, [facility] [address] [id number] [address] [place] [address], [place] [address] Jun, [facility] [address] [id number] [address] [place] [address], [place] [address] Jun, [facility] [address] [id number] [address] [place] [address], [place] [address] Jun, [facility] [address] [id number] [address] [place] [address], [place] [address] May, [facility] [address] [id number] [address] [place] [address], [place] [address] May, [facility] [address] [id number] [address] [place] [address], [place] [address] May, [facility] [address] [id number] [address] [place] [address], [place] [address] May, [facility] [address] [id number] [address] [place] [address], [place] [address] May, [facility] [address] [id number] [address] [place] [address], [place] [address] May, [facility] [address] [id number] [address] [place] [address], [place] [address] May, [facility] [address] [id number] [address] [place] [address], [place] [address] May, [facility] [address] [id number] [address] [place] [address], [place] [address] Apr, [facility] [address] [id number] [address] [place] [address] Apr, [facility] [address] [id number] [address] [place] [address], [place] [address] Apr, [facility] [address] [id number] [address] [place] [address] Apr, [facility] [address] [id number] [address] [place] [address] Apr, [facility] [address] [id number] [address] [place] [address] Apr, [facility] [address] [id number] [address] [place] [address], [place] [address] Mar, [facility] [address] [id number] [address] [place] [address] Mar, [facility] [address] [id number] [address] [place] [address], [place] [address] Mar, [facility] [address] [id number] [address] [place] [address], [place] [address] Mar, [facility] [address] [id number] [address] [place] [address], [place] [address] Mar, [facility] [address] [id number] [address] [place] [address], [place] [address] Mar, [facility] [address] [id number] [address] [place] [address], [place] [address] Mar, [facility] [address] [id number] [address] [place] [address], [place] [address] 30 Feb, 2012 [facility] [address] [id number] [address] [place] [address], [place] [address] 30 Feb, 2013 [facility] [address] [id number] [address] [place] [address], [place] [address] 27 Feb, 2013 [facility] [address] [id number] [address] [place] [address], [place] [address] Feb, 2012 [facility] [address] [id number] [address] [place] [address], [place] [address] Feb, [facility] [address] [id number] [address] [place] [address], [place] [address] Feb, [facility] [address] [id number] [address] [place] [address], [place] [address] Jan, [facility] [address] [id number] [address] [place] [address], [place] [address] Jan, [facility] [address] [id number] [address] [place] [address], [place] [address] Jan, [facility] [address] [id number] [address] [place] [address], [place] [address] Jan, [facility] [address] [id number] [address] [place] [address], [place] [address] Jan, [facility] [address] [id number] [address] [place] [address], [place] [address] Jan, [facility] [address] [id number] [address] [place] [address], [place] [address] Jan, [facility] [address] [id number] [address] [place] [address], [place] [address] Jan, [facility] [address] [id number] [address] [place] [address], [place] [address] Jan, [facility] [address] [id number] [address] [place] [address], [place] [address] Dec, [facility] [address] [id number] [address] [place] [address], [place] [address] Dec, [facility] [address] [id number] [address] [place] [address], [place] [address] Dec, [facility] [address] [id number] [address] [place] [address], [place] [address] Dec, [facility] [address] [id number] [address] [place] [address], [place] [address] Dec, [facility] [address] [id number] [address] [place] [address], [place] [address] Dec, [facility] [address] [id number] [address] [place] [address], [place] [address] Dec, [facility] [address] [id number] [address] [place] [address], [place] [address] Dec, [facility] [address] [id number] [address] [place] [address], [place] [address] Dec, [facility] [address] [id number] [address] [place] [address], [place] [address] Dec, [facility] [address] [id number] [address] [place] [address], [place] [address] Dec, [facility] [address] [id number] [address] [place] [address], [place] [address] Dec, [facility] [address] [id number] [address] [place] [address], [place] [address] Dec, [facility] [address] [id number] [address] [place] [address], [place] [address] Nov, [facility] [address] [id number] [address] [place] [address], [place] [address] Nov, [facility] [address] [id number] [address] [place] [address], [place] [address] Nov, [facility] [address] [id number] [address] [place] [address], [place] [address] Nov, [facility] [address] [id number] [address] [place] [address], [place] [address] October, [facility] [address] [id number] [address] [place] [address], [place] [address] October, [facility] [address] [id number] [address] [place] [address], [place] [address] October, [facility] [address] [id number] [address] [place] [address], [place] [address] October, [facility] [address] [id number] [address] [place] [address], [place] [address] October, [facility] [address] [id number] [address] [place] [address], [place] [address] October, [facility] [address] [id number] [address] [place] [address], [place] [address] Sep, [facility] [address] [id number] [address] [place] [address], [place] [address] Sep, [facility] [address] [id number] [address] [place] [address], [place] [address] Sep, [facility] [address] [id number] [address] [place] [address], [place] [address] Sep, [facility] [address] [id number] [address] [place] [address], [place] [address] Sep, [facility] [address] [id number] [facility] [place] [address] 16 Sep, 2012 [facility] [address] [id number] [address] [place] [address], [place] [address] 12 Sep, 2012 [facility] [address] [id number] [address] [place] [address], [place] [address] Sep, [facility] [address] [id number] [address] [place] [address], [place] [address] Sep, [facility] [address] [id number] [address] [place] [address], [place] [address] Sep, [facility] [address] [id number] [address] [place] [address], [place] [address] Sep, [facility] [address] [id number] [address] [place] [address], [place] [address] Aug, [facility] [address] [id number] [address] [place] [address], [place] [address] 25 Aug, 2012 [facility] [address] [id number] [address] [place] [address], [place] [address] 25 Aug, 2012 [facility] [address] [id number] [address] [place] [address], [place] [address] 21 Aug, 2012 [facility] [address] [id number] [address] [place] [address], [place] [address] 19 Aug, 2012 [facility] [address] [id number] [address] [place] [address], [place] [address] 18 Aug, 2012 [facility] [address] [id number] [address] [place] [address], [place] [address] 17 Aug, 2012 [facility] [address] [id number] [address] [place] [address], [place] [address] 15 Aug, 2012 [facility] [address] [id number] [address] [place] [address], [place] [address] 15 Aug, 2012 [facility] [address] [id number] [address] [place] [address], [place] [address] Aug, [facility] [address] [id number] [address] [place] [address], [place] [address] Aug, [facility] [address] [id number] [address] [place] [address], [place] [address] Aug, [facility] [address] [id number] [address] [place] [address], [place] [address] Jul, [facility] [address] [id number] [address] [place] [address], [place] [address] Jul, [facility] [address] [id number] [address] [place] [address], [place] [address] Jul, [facility] [address] [id number] [address] [place] [address], [place] [address] Jul, [facility] [address] [id number] [address] [place] [address], [place] [address] Jul, [facility] [address] [id number] [address] [place] [address], [place] [address] Jul, [facility] [address] [id number] [address] [place] [address], [place] [address] Jul, [facility] [address] [id number] [address] [place] [address], [place] [address] Jul, [facility] [address] [id number] [address] [place] [address], [place] [address] Jul, [facility] [address] [id number] [address] [place] [address], [place] [address] Jul, [facility] [address] [id number] [address] [place] [address], [place] [address] May, [facility] [address] [id number] [place] [id number] May, [facility] [address] [id number] [address] [place] [address], [place] [address] May, [facility] [address] [id number] [address] [place] [phone] May, [facility] [address] [id number] [address] [place] [id number] May, [facility] [address] [id number] [address] [place] [phone] Apr, [facility] [address] [id number] [place] [id number] Apr, [facility] [address] [id number] [address] [place] [phone] Apr, [facility] [address] [id number] [address] [place] [id number] Mar, [facility] [address] [id number] [place] [id number] Mar, [facility] [address] [id number] [address] [place] [phone] Mar, [facility] [address] [id number] [place] [id number] Feb, [facility] [address] [id number] [address] [place] [phone] Feb, [facility] [address] [id number] [address] [place] [phone] Feb, [facility] [address] [id number] [place] [id number] Feb, [facility] [address] [id number] [place] [id number] Feb, [facility] [address] [id number] [place] [id number] Jan, [facility] [address] [id number] [address] [place] [address], [place] [address] Jan, [facility] [address] [id number] [place] [id number] Jan, [facility] [address] [id number] [place] [id number] Jan, [facility] [address] [id number] [place] [id number] Jan, [facility] [address] [id number] [address] [place] [address], [place] [address] Jan, [facility] [address] [id number] [address] [place] [address], [place] [address] Jan, [facility] [address] [id number] [address] [place] [address], [place] [address] Aug, [facility] [address] [id number] [place] [id number] Aug, [facility] [address] [id number] [address] [place] [address], [place] [address] Jul, [facility] [address] [id number] [address] [place] [address], [place] [address] Jul, [facility] [address] [id number] [address] [place] [address], [place] [address] Jul, [facility] [address] [id number] [place] [id number] Jul, [facility] [address] [id number] [address] [place] [address], [place] [address] Jul, [facility] [address] [id number] [place] [id number] Jul, [facility] [address] [id number] [address] [place] [address], [place] [address] Jul, [facility] [address] [id number] [place] [id number] Jul, [facility] [address] [id number] [place] [id number] Jul, [facility] [address] [id number] [place] [id number] Jul, [facility] [address] [id number] [address] [place] [address], [place] [address] May, [facility] [address] [id number] [address] [place] [id number] May, [facility] [address] [id number] [address] [place] [phone] May, [facility] [address] [id number] [address] [place] [id number] Apr, [facility] [address] [id number] [address] [place] [id number] Jan, [facility] [address] [id number] [address] [place] [id number] Jan, [facility] [address] [id number] [address] [place] [phone] Dec, [facility] [address] [id number] [address] [place] [id number] Dec, [facility] [address] [id number] [address] [place] [phone] May, [facility] [address] [id number] [address] [place] [id number] Mar, [facility] [address] [id number] [address] [place] [phone] Mar, [facility] [address] [id number] [address] [place] [phone] Jan, IMMUNIZATIONS No Known Immunizations SOCIAL HISTORY Never Assessed REASON FOR VISIT PLAN OF CARE VITAL SIGNS MEDICATIONS Unknown Medications RESULTS No Results PROCEDURES Procedure Date Ordered Result Body Site PROTHROMBIN TIME Apr 22, 2014 INSTRUCTIONS MEDICATIONS ADMINISTERED No Known Medications [...]
--- OUTSIDE RECORDS SUMMARY | 2020-01-28 12:27 | XMS REPORT ---
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 Active 801852127 Problem History of venous thromboembolism V12.51 Active 450240208 Problem Cellulitis of unspecified part of limb L03.119 Active 728610919 Problem Gastroesophageal reflux disease without esophagitis K21.9 Active 580402103 Problem History of pulmonary embolism Z86.711 Active 171714255 Problem Pseudotumor cerebri G93.2 Active 96182227 Problem History of DVT (deep vein thrombosis) Z86.718 Active 430185140 ALLERGIES No Information ENCOUNTERS Encounter Location Date Diagnosis [place] [id number] [facility] [id number] [address] [place] [address] Apr, longterm (current) use of 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 Z79.01 [facility] [address] [facility] [id number] [address] [place] [address] Apr, longterm 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.01 [facility] [address] [facility] [id number] [address] [place] [address] Apr, Cellulitis of unspecified pa rt of limb L03.119 ; Allergic contact dermatitis due to adhesives L23.1 and Chronic pain syndrome G89.4 [facility] [address] [facility] [id number] [address] [place] [address] Apr, [place] [address] [place] [id number] [address] [place] [address] Apr, 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 ; Cellulitis of unspecified part of limb L03.119 ; Chronic pain syndrome G89.4 and Anxiety F41.9 [facility] [address] [place] [id number] [address] [place] [address] 16 Apr, 2015 [facility] [address] [place] [id number] [place] [address] Apr, [place] [address] [place] [id number] [place] [address] Mar, [place] [address] [address] Mar, [place] [address] [address] Mar, Sore throat J02.9 ; Gastroes ophageal reflux disease without esophagitis K21.9 ; Pseudotumor cerebri G93.2 ; Chronic pain syndrome G89.4 ; Choriocarcinoma C58 ; History of pulmonary embolism Z86.711 ; History of DVT (deep vein thrombosis) Z86.718 ; Anxiety F41.9 and Tachycardia R00.0 [place] [address] [address] Feb, Anxiety 300.00 and Chronic p ain 338.29 [place] [address] [place] [id number] [address] [place] [address] Feb, [place] [address] [place] [id number] [address] [place] [address] Feb, [place] [address] [address] Jan, 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 and Dysuria 788.1 [place] [address] [place] [id number] [place] [address] Jan, Dysuria 788.1 [facility] [address] [place] [id number] [address] [place] [address] Jan, Anxiety 300.00 and Chronic p ain 338.29 [facility] [address] [place] [id number] [place] [address] Jan, [facility] [address] [address] Jan, [facility] [address] [address] Jan, [place] [address] [address] Dec, Weakness 780.79 [place] [address] [address] Dec, longterm 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 therapy V58.61 [place] [address] [address] Dec, Palpitations 785.1 ; Tremor 781.0 ; Weakness 780.79 ; longterm 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 therapy V58.61 and Yeast vaginitis 112.1 [place] [address] [place] [id number] [address] [place] [address] Dec, [place] [address] [address] Dec, Cervicalgia 723.1 ; Tachycar yoseph 785.0 ; Pseudotumor cerebri 348.2 and History of venous thromboembolism V12.51 [place] [address] [address] Nov, [place] [address] [address] Nov, [place] [address] [address] Nov, Tachycardia 785.0 ; Pseudotu mor cerebri 348.2 ; Anxiety 300.00 and History of venous thromboembolism V12.51 [facility] [address] [id number] [address] [place] [address] Nov, [facility] [address] [id number] [address] [place] [address] 18 Nov, 2014 [facility] [address] [id number] [address] [place] [address] Nov, [facility] [address] [id number] [address] [place] [address] Nov, [facility] [address] [facility] [id number] [address] [place] [address] Nov, [facility] [address] [facility] [id number] [address] [place] [address] Nov, [facility] [address] [facility] [id number] [address] [place] [address] Nov, [facility] [address] [facility] [id number] [address] [place] [address] October, [facility] [address] [facility] [id number] [address] [place] [address] October, [facility] [address] [place] [id number] [address] [place] [address] October, Pain in thoracic spine 724.1 and Tachycardia 785.0 [facility] [address] [id number] [address] [place] [address] October, [facility] [address] [id number] [address] [place] [address] October, [facility] [address] [facility] [id number] [address] [place] [address] 14 Sep, 2014 [facility] [address] [facility] [id number] [address] [place] [address] Sep, [facility] [address] [id number] [facility] [place] [address] Aug, [facility] [address] [id number] [address] [place] [address], [place] [address] Aug, [facility] [address] [id number] [address] [place] [address], [place] [address] Aug, [facility] [address] [id number] [address] [place] [address], [place] [address] Aug, [facility] [address] [id number] [address] [place] [address], [place] [address] Aug, [facility] [address] [id number] [address] [place] [address], [place] [address] Aug, [facility] [address] [id number] [address] [place] [address], [place] [address] Aug, [facility] [address] [id number] [address] [place] [address], [place] [address] Aug, [facility] [address] [id number] [address] [place] [address], [place] [address] Aug, [facility] [address] [id number] [address] [place] [address], [place] [address] Aug, [facility] [address] [id number] [address] [place] [address], [place] [address] Aug, [facility] [address] [id number] [address] [place] [address], [place] [address] Aug, 2014 [facility] [address] [id number] [address] [place] [address], [place] [address] Jul, [facility] [address] [id number] [address] [place] [address], [place] [address] Jul, [facility] [address] [id number] [address] [place] [address], [place] [address] Jul, [facility] [address] [id number] [address] [place] [address], [place] [address] Jul, [facility] [address] [id number] [address] [place] [address], [place] [address] 23 Jul, 2014 [facility] [address] [id number] [address] [place] [address], [place] [address] 23 Jul, 2014 [facility] [address] [id number] [address] [place] [address], [place] [address] 23 Jul, 2014 [facility] [address] [id number] [address] [place] [address], [place] [address] 23 Jul, 2014 [facility] [address] [id number] [address] [place] [address], [place] [address] 20 Jul, 2014 [facility] [address] [id number] [address] [place] [address], [place] [address] 20 Jul, 2014 [facility] [address] [id number] [address] [place] [address], [place] [address] 19 Jul, 2014 [facility] [address] [id number] [address] [place] [address], [place] [address] 19 Jul, 2014 [facility] [address] [id number] [address] [place] [address], [place] [address] 17 Jul, 2014 [facility] [address] [id number] [address] [place] [address], [place] [address] 17 Jul, 2014 [facility] [address] [id number] [address] [place] [address], [place] [address] 16 Jul, 2014 [facility] [address] [id number] [address] [place] [address], [place] [address] 16 Jul, 2014 [facility] [address] [id number] [address] [place] [address], [place] [address] 16 Jul, 2014 [facility] [address] [id number] [address] [place] [address] 16 Jul, 2014 [facility] [address] [id number] [address] [place] [address] 13 Jul, 2014 [facility] [address] [id number] [address] [place] [address], [place] [address] Jul, [facility] [address] [id number] [address] [place] [address], [place] [address] Jul, [facility] [address] [id number] [address] [place] [address], [place] [address] Jul, 2014 [facility] [address] [id number] [address] [place] [address], [place] [address] Jul, 2014 [facility] [address] [id number] [address] [place] [address], [place] [address] Jul, [facility] [address] [id number] [address] [place] [address], [place] [address] Jul, [facility] [address] [id number] [address] [place] [address], [place] [address] Jul, [facility] [address] [id number] [address] [place] [address], [place] [address] Jul, [facility] [address] [id number] [address] [place] [address], [place] [address] Jul, [facility] [address] [id number] [address] [place] [address], [place] [address] Jul, [facility] [address] [id number] [address] [place] [address], [place] [address] Jul, [facility] [address] [id number] [address] [place] [address], [place] [address] Jun, [facility] [address] [id number] [address] [place] [address], [place] [address] Jun, [facility] [address] [id number] [address] [place] [address], [place] [address] Jun, [facility] [address] [id number] [address] [place] [address], [place] [address] Jun, [facility] [address] [id number] [address] [place] [address], [place] [address] Jun, [facility] [address] [id number] [address] [place] [address], [place] [address] Jun, [facility] [address] [id number] [address] [place] [address], [place] [address] Jun, [facility] [address] [id number] [address] [place] [address], [place] [address] Jun, [facility] [address] [id number] [address] [place] [address], [place] [address] Jun, [facility] [address] [id number] [address] [place] [address], [place] [address] Jun, [facility] [address] [id number] [address] [place] [address], [place] [address] Jun, [facility] [address] [id number] [address] [place] [address], [place] [address] Jun, [facility] [address] [id number] [address] [place] [address], [place] [address] Jun, [facility] [address] [id number] [address] [place] [address], [place] [address] Jun, [facility] [address] [id number] [address] [place] [address], [place] [address] Jun, [facility] [address] [id number] [address] [place] [address], [place] [address] Jun, [facility] [address] [id number] [address] [place] [address], [place] [address] Jun, [facility] [address] [id number] [address] [place] [address], [place] [address] Jun, [facility] [address] [id number] [address] [place] [address], [place] [address] Jun, [facility] [address] [id number] [address] [place] [address], [place] [address] Jun, [facility] [address] [id number] [address] [place] [address], [place] [address] May, [facility] [address] [id number] [address] [place] [address], [place] [address] May, [facility] [address] [id number] [address] [place] [address], [place] [address] May, [facility] [address] [id number] [address] [place] [address], [place] [address] May, [facility] [address] [id number] [address] [place] [address], [place] [address] May, [facility] [address] [id number] [address] [place] [address], [place] [address] May, [facility] [address] [id number] [address] [place] [address], [place] [address] May, [facility] [address] [id number] [address] [place] [address], [place] [address] May, [facility] [address] [id number] [address] [place] [address], [place] [address] May, [facility] [address] [id number] [address] [place] [address], [place] [address] May, [facility] [address] [id number] [address] [place] [address], [place] [address] May, [facility] [address] [id number] [address] [place] [address], [place] [address] 18 May, 2014 [facility] [address] [id number] [address] [place] [address], [place] [address] 18 May, 2014 [facility] [address] [id number] [address] [place] [address], [place] [address] 17 May, 2014 [facility] [address] [id number] [address] [place] [address], [place] [address] 16 May, 2014 [facility] [address] [id number] [address] [place] [address], [place] [address] 16 May, 2014 [facility] [address] [id number] [address] [place] [address], [place] [address] 15 May, 2014 [facility] [address] [id number] [address] [place] [address], [place] [address] 15 May, 2014 [facility] [address] [id number] [address] [place] [address], [place] [address] May, [facility] [address] [id number] [address] [place] [address], [place] [address] May, [facility] [address] [id number] [address] [place] [address], [place] [address] May, [facility] [address] [id number] [address] [place] [address], [place] [address] May, [facility] [address] [id number] [address] [place] [address], [place] [address] May, [facility] [address] [id number] [address] [place] [address], [place] [address] May, [facility] [address] [id number] [address] [place] [address], [place] [address] May, [facility] [address] [id number] [address] [place] [address], [place] [address] May, [facility] [address] [id number] [address] [place] [address], [place] [address] May, [facility] [address] [id number] [address] [place] [address], [place] [address] May, [facility] [address] [id number] [address] [place] [address], [place] [address] May, [facility] [address] [id number] [address] [place] [address], [place] [address] May, [facility] [address] [id number] [address] [place] [address], [place] [address] May, [facility] [address] [id number] [address] [place] [address], [place] [address] May, [facility] [address] [id number] [address] [place] [address], [place] [address] May, [facility] [address] [id number] [address] [place] [address], [place] [address] May, [facility] [address] [id number] [address] [place] [address], [place] [address] Apr, [facility] [address] [id number] [address] [place] [address], [place] [address] Apr, [facility] [address] [id number] [address] [place] [address], [place] [address] Apr, [facility] [address] [id number] [address] [place] [address], [place] [address] Apr, [facility] [address] [id number] [address] [place] [address], [place] [address] Apr, [facility] [address] [id number] [address] [place] [address], [place] [address] Apr, [facility] [address] [id number] [address] [place] [address], [place] [address] Apr, [facility] [address] [id number] [address] [place] [address], [place] [address] Apr, [facility] [address] [id number] [address] [place] [address], [place] [address] Apr, [facility] [address] [id number] [address] [place] [address], [place] [address] Apr, [facility] [address] [id number] [address] [place] [address], [place] [address] Mar, [facility] [address] [id number] [address] [place] [address], [place] [address] Mar, [facility] [address] [id number] [address] [place] [address] [address] Mar, [facility] [address] [id number] [address] [place] [address], [place] [address] 31 Mar, 2013 [facility] [address] [id number] [address] [place] [address], [place] [address] Mar, [facility] [address] [id number] [address] [place] [address], [place] [address] 30 Mar, 2014 [facility] [address] [id number] [address] [place] [address], [place] [address] Mar, [facility] [address] [id number] [address] [place] [address], [place] [address] Mar, [facility] [address] [id number] [address] [place] [address], [place] [address] Mar, [facility] [address] [id number] [address] [place] [address], [place] [address] Mar, [facility] [address] [id number] [address] [place] [id number] Mar, [facility] [address] [id number] [address] [place] [id number] Mar, [facility] [address] [id number] [address] [place] [address] Mar, [facility] [address] [id number] [address] [place] [address] Mar, 2013 [facility] [address] [id number] [address] [place] [address] Mar, 2013 [facility] [address] [id number] [address] [place] [address] Mar, [facility] [address] [id number] [address] [place] [address] Mar, [facility] [address] [id number] [address] [place] [address] Mar, 2013 [facility] [address] [id number] [address] [place] [address], [place] [address] 02 Mar, 2013 [facility] [address] [id number] [address] [place] [address], [place] [address] 02 Mar, 2013 [facility] [address] [id number] [address] [place] [address], [place] [address] 05 Sep, 2013 [facility] [address] [id number] [address] [place] [address], [place] [address] 05 Sep, 2013 [facility] [address] [id number] [address] [place] [address], [place] [address] 04 Sep, 2013 [facility] [address] [id number] [address] [place] [address], [place] [address] 04 Sep, 2013 [facility] [address] [id number] [address] [place] [address], [place] [address] 03 Feb, 2013 [facility] [address] [id number] [address] [place] [address], [place] [address] 03 Feb, 2013 [facility] [address] [id number] [address] [place] [address], [place] [address] 02 Feb, 2013 [facility] [address] [id number] [address] [place] [address], [place] [address] Feb, 2013 [facility] [address] [id number] [address] [place] [address], [place] [address] 02 Feb, 2013 [facility] [address] [id number] [address] [place] [address], [place] [address] Feb, 2013 [facility] [address] [id number] [address] [place] [address], [place] [address] Jan, [facility] [address] [id number] [address] [place] [address], [place] [address] Jan, [facility] [address] [id number] [address] [place] [address], [place] [address] Jan, [facility] [address] [id number] [address] [place] [address], [place] [address] Jan, [facility] [address] [id number] [facility] [place] [address] Jan, [facility] [address] [id number] [address] [place] [address], [place] [address] Jan, [facility] [address] [id number] [address] [place] [address], [place] [address] Jan, [facility] [address] [id number] [address] [place] [address], [place] [address] Jan, [facility] [address] [id number] [address] [place] [address], [place] [address] Jan, [facility] [address] [id number] [address] [place] [address], [place] [address] Jan, [facility] [address] [id number] [address] [place] [address], [place] [address] Jan, [facility] [address] [id number] [address] [place] [address], [place] [address] Jan, [facility] [address] [id number] [address] [place] [address], [place] [address] Dec, [facility] [address] [id number] [address] [place] [address], [place] [address] Dec, [facility] [address] [id number] [address] [place] [address], [place] [address] Dec, [facility] [address] [id number] [address] [place] [address], [place] [address] Dec, [facility] [address] [id number] [address] [place] [address], [place] [address] Dec, [facility] [address] [id number] [address] [place] [address], [place] [address] Dec, [facility] [address] [id number] [address] [place] [address], [place] [address] Dec, [facility] [address] [id number] [address] [place] [address], [place] [address] Dec, [facility] [facility] [address] [id number] [facility] [place] [address] Dec, [facility] [address] [id number] [address] [place] [address], [place] [address] Dec, [facility] [address] [id number] [address] [place] [address], [place] [address] Dec, [facility] [address] [id number] [address] [place] [address], [place] [address] Dec, [facility] [address] [id number] [address] [place] [address], [place] [address] Nov, [facility] [address] [id number] [address] [place] [address], [place] [address] Nov, [facility] [address] [id number] [address] [place] [address], [place] [address] Nov, [facility] [address] [id number] [address] [place] [address], [place] [address] Nov, [facility] [address] [id number] [address] [place] [address], [place] [address] Nov, [facility] [address] [id number] [address] [place] [address], [place] [address] Nov, [facility] [address] [id number] [address] [place] [address], [place] [address] Nov, [facility] [address] [id number] [address] [place] [address], [place] [address] Nov, [facility] [address] [id number] [address] [place] [address], [place] [address] Nov, [facility] [address] [id number] [address] [place] [address], [place] [address] Nov, [facility] [address] [id number] [address] [place] [address], [place] [address] Nov, [facility] [address] [id number] [facility] [place] [address] Nov, [facility] [address] [id number] [address] [place] [address], [place] [address] Nov, [facility] [address] [id number] [address] [place] [address], [place] [address] Nov, [facility] [address] [id number] [address] [place] [address], [place] [address] October, [facility] [address] [id number] [address] [place] [address], [place] [address] October, [facility] [address] [id number] [address] [place] [address], [place] [address] October, [facility] [address] [id number] [address] [place] [address], [place] [address] October, [facility] [address] [id number] [address] [place] [address], [place] [address] October, [facility] [address] [id number] [address] [place] [address], [place] [address] October, [facility] [address] [id number] [address] [place] [address], [place] [address] October, [facility] [address] [id number] [address] [place] [address], [place] [address] October, [facility] [address] [id number] [address] [place] [address], [place] [address] October, [facility] [address] [id number] [address] [place] [address], [place] [address] October, [facility] [address] [id number] [address] [place] [address], [place] [address] October, [facility] [address] [id number] [address] [place] [address], [place] [address] October, [facility] [address] [id number] [address] [place] [address], [place] [address] Sep, [facility] [address] [id number] [facility] [place] [address] Sep, [facility] [address] [id number] [address] [place] [address], [place] [address] Sep, [facility] [address] [id number] [facility] [place] [address] Sep, [facility] [address] [id number] [address] [place] [address], [place] [address] Sep, [facility] [address] [id number] [address] [place] [address], [place] [address] Sep, [facility] [address] [id number] [address] [place] [address], [place] [address] Aug, [facility] [address] [id number] [address] [place] [address], [place] [address] Aug, [facility] [address] [id number] [address] [place] [address], [place] [address] Aug, [facility] [address] [id number] [address] [place] [address], [place] [address] Aug, [facility] [address] [id number] [address] [place] [address], [place] [address] Aug, [facility] [address] [id number] [address] [place] [address], [place] [address] Aug, [facility] [address] [id number] [address] [place] [address], [place] [address] Jul, [facility] [address] [id number] [address] [place] [address], [place] [address] Jul, [facility] [address] [id number] [address] [place] [address], [place] [address] Jul, [facility] [address] [id number] [address] [place] [address], [place] [address] Jul, [facility] [address] [id number] [address] [place] [address], [place] [address] 13 Jul, 2013 [facility] [address] [id number] [address] [place] [address], [place] [address] Jul, [facility] [address] [id number] [address] [place] [address], [place] [address] Jul, [facility] [address] [id number] [address] [place] [address], [place] [address] Jul, [facility] [address] [id number] [address] [place] [address], [place] [address] Jul, [facility] [address] [id number] [address] [place] [address], [place] [address] Jul, [facility] [address] [id number] [address] [place] [address], [place] [address] Jun, [facility] [address] [id number] [address] [place] [address], [place] [address] Jun, [facility] [address] [id number] [address] [place] [address], [place] [address] Jun, [facility] [address] [id number] [address] [place] [address], [place] [address] Jun, [facility] [address] [id number] [address] [place] [address], [place] [address] Jun, [facility] [address] [id number] [address] [place] [address], [place] [address] Jun, [facility] [address] [id number] [address] [place] [address], [place] [address] Jun, [facility] [address] [id number] [address] [place] [address], [place] [address] Jun, [facility] [address] [id number] [address] [place] [address], [place] [address] May, [facility] [address] [id number] [address] [place] [address], [place] [address] May, [facility] [address] [id number] [address] [place] [address], [place] [address] May, [facility] [address] [id number] [address] [place] [address], [place] [address] May, [facility] [address] [id number] [address] [place] [address], [place] [address] May, [facility] [address] [id number] [address] [place] [address], [place] [address] May, [facility] [address] [id number] [address] [place] [address], [place] [address] May, [facility] [address] [id number] [address] [place] [address], [place] [address] May, [facility] [address] [id number] [address] [place] [address], [place] [address] Apr, [facility] [address] [id number] [address] [place] [address] Apr, [facility] [address] [id number] [address] [place] [address], [place] [address] Apr, [facility] [address] [id number] [address] [place] [address] Apr, [facility] [address] [id number] [address] [place] [address] Apr, [facility] [address] [id number] [address] [place] [address] Apr, [facility] [address] [id number] [address] [place] [address], [place] [address] Mar, [facility] [address] [id number] [address] [place] [address] Mar, [facility] [address] [id number] [address] [place] [address], [place] [address] Mar, [facility] [address] [id number] [address] [place] [address], [place] [address] Mar, [facility] [address] [id number] [address] [place] [address], [place] [address] Mar, [facility] [address] [id number] [address] [place] [address], [place] [address] Mar, [facility] [address] [id number] [address] [place] [address], [place] [address] Mar, [facility] [address] [id number] [address] [place] [address], [place] [address] 30 Feb, 2012 [facility] [address] [id number] [address] [place] [address], [place] [address] 30 Feb, 2013 [facility] [address] [id number] [address] [place] [address], [place] [address] 27 Feb, 2013 [facility] [address] [id number] [address] [place] [address], [place] [address] Feb, 2012 [facility] [address] [id number] [address] [place] [address], [place] [address] Feb, [facility] [address] [id number] [address] [place] [address], [place] [address] Feb, [facility] [address] [id number] [address] [place] [address], [place] [address] Jan, [facility] [address] [id number] [address] [place] [address], [place] [address] Jan, [facility] [address] [id number] [address] [place] [address], [place] [address] Jan, [facility] [address] [id number] [address] [place] [address], [place] [address] Jan, [facility] [address] [id number] [address] [place] [address], [place] [address] Jan, [facility] [address] [id number] [address] [place] [address], [place] [address] Jan, [facility] [address] [id number] [address] [place] [address], [place] [address] Jan, [facility] [address] [id number] [address] [place] [address], [place] [address] Jan, [facility] [address] [id number] [address] [place] [address], [place] [address] Jan, [facility] [address] [id number] [address] [place] [address], [place] [address] Dec, [facility] [address] [id number] [address] [place] [address], [place] [address] Dec, [facility] [address] [id number] [address] [place] [address], [place] [address] Dec, [facility] [address] [id number] [address] [place] [address], [place] [address] Dec, [facility] [address] [id number] [address] [place] [address], [place] [address] Dec, [facility] [address] [id number] [address] [place] [address], [place] [address] Dec, [facility] [address] [id number] [address] [place] [address], [place] [address] Dec, [facility] [address] [id number] [address] [place] [address], [place] [address] Dec, [facility] [address] [id number] [address] [place] [address], [place] [address] Dec, [facility] [address] [id number] [address] [place] [address], [place] [address] Dec, [facility] [address] [id number] [address] [place] [address], [place] [address] Dec, [facility] [address] [id number] [address] [place] [address], [place] [address] Dec, [facility] [address] [id number] [address] [place] [address], [place] [address] Dec, [facility] [address] [id number] [address] [place] [address], [place] [address] Nov, [facility] [address] [id number] [address] [place] [address], [place] [address] Nov, [facility] [address] [id number] [address] [place] [address], [place] [address] Nov, [facility] [address] [id number] [address] [place] [address], [place] [address] Nov, [facility] [address] [id number] [address] [place] [address], [place] [address] October, [facility] [address] [id number] [address] [place] [address], [place] [address] October, [facility] [address] [id number] [address] [place] [address], [place] [address] October, [facility] [address] [id number] [address] [place] [address], [place] [address] October, [facility] [address] [id number] [address] [place] [address], [place] [address] October, [facility] [address] [id number] [address] [place] [address], [place] [address] October, [facility] [address] [id number] [address] [place] [address], [place] [address] Sep, [facility] [address] [id number] [address] [place] [address], [place] [address] Sep, [facility] [address] [id number] [address] [place] [address], [place] [address] Sep, [facility] [address] [id number] [address] [place] [address], [place] [address] Sep, [facility] [address] [id number] [address] [place] [address], [place] [address] Sep, [facility] [address] [id number] [facility] [place] [address] 16 Sep, 2012 [facility] [address] [id number] [address] [place] [address], [place] [address] 12 Sep, 2012 [facility] [address] [id number] [address] [place] [address], [place] [address] Sep, [facility] [address] [id number] [address] [place] [address], [place] [address] Sep, [facility] [address] [id number] [address] [place] [address], [place] [address] Sep, [facility] [address] [id number] [address] [place] [address], [place] [address] Sep, [facility] [address] [id number] [address] [place] [address], [place] [address] Aug, [facility] [address] [id number] [address] [place] [address], [place] [address] 25 Aug, 2012 [facility] [address] [id number] [address] [place] [address], [place] [address] 25 Aug, 2012 [facility] [address] [id number] [address] [place] [address], [place] [address] 21 Aug, 2012 [facility] [address] [id number] [address] [place] [address], [place] [address] 19 Aug, 2012 [facility] [address] [id number] [address] [place] [address], [place] [address] 18 Aug, 2012 [facility] [address] [id number] [address] [place] [address], [place] [address] 17 Aug, 2012 [facility] [address] [id number] [address] [place] [address], [place] [address] 15 Aug, 2012 [facility] [address] [id number] [address] [place] [address], [place] [address] 15 Aug, 2012 [facility] [address] [id number] [address] [place] [address], [place] [address] Aug, [facility] [address] [id number] [address] [place] [address], [place] [address] Aug, [facility] [address] [id number] [address] [place] [address], [place] [address] Aug, [facility] [address] [id number] [address] [place] [address], [place] [address] Jul, [facility] [address] [id number] [address] [place] [address], [place] [address] Jul, [facility] [address] [id number] [address] [place] [address], [place] [address] Jul, [facility] [address] [id number] [address] [place] [address], [place] [address] Jul, [facility] [address] [id number] [address] [place] [address], [place] [address] Jul, [facility] [address] [id number] [address] [place] [address], [place] [address] Jul, [facility] [address] [id number] [address] [place] [address], [place] [address] Jul, [facility] [address] [id number] [address] [place] [address], [place] [address] Jul, [facility] [address] [id number] [address] [place] [address], [place] [address] Jul, [facility] [address] [id number] [address] [place] [address], [place] [address] Jul, [facility] [address] [id number] [address] [place] [address], [place] [address] May, [facility] [address] [id number] [place] [id number] May, [facility] [address] [id number] [address] [place] [address], [place] [address] May, [facility] [address] [id number] [address] [place] [address] May, [facility] [address] [facility] [id number] [address] [place] [address] May, [facility] [address] [facility] [id number] [address] [place] [address] Apr, [facility] [place] [address] [id number] [place] [id number] Apr, [facility] [address] [facility] [id number] [address] [place] [address] Apr, [facility] [address] [facility] [id number] [address] [place] [address] Mar, [facility] [address] [id number] [place] [id number] Mar, [facility] [address] [facility] [id number] [address] [place] [address] Mar, [facility] [address] [id number] [place] [id number] Feb, [facility] [address] [facility] [id number] [address] [place] [id number] Feb, [facility] [address] [facility] [id number] [address] [place] [id number] Feb, [facility] [address] [id number] [place] [id number] Feb, [facility] [address] [id number] [place] [id number] Feb, [facility] [address] [id number] [place] [id number] Jan, [facility] [address] [id number] [address] [place] [address], [place] [address] Jan, [facility] [address] [id number] [place] [id number] Jan, [facility] [address] [id number] [place] [id number] Jan, [facility] [address] [id number] [place] [id number] Jan, [facility] [address] [facility] [id number] [address] [place] [address], [place] [address] Jan, [facility] [address] [facility] [id number] [address] [place] [address], [place] [address] Jan, [facility] [address] [facility] [id number] [address] [place] [address], [place] [id number] Aug, [facility] [address] [id number] [place] [id number] Aug, [facility] [address] [facility] [id number] [address] [place] [address], [place] [address] Jul, [facility] [address] [facility] [id number] [address] [place] [address], [place] [address] Jul, [facility] [address] [facility] [id number] [address] [place] [address], [place] [address] Jul, [facility] [address] [id number] [place] [id number] Jul, [facility] [address] [facility] [id number] [address] [place] [address], [place] [address] Jul, [facility] [address] [id number] [place] [id number] Jul, [facility] [address] [facility] [id number] [address] [place] [address], [place] [address] Jul, [facility] [address] [id number] [place] [id number] Jul, [facility] [address] [id number] [place] [id number] Jul, [facility] [address] [id number] [place] [id number] Jul, [facility] [address] [facility] [id number] [address] [place] [address], [place] [address] May, [facility] [address] [id number] [address] [place] [id number] May, [facility] [address] [id number] [address] [place] [id number] May, [facility] [address] [id number] [address] [place] [id number] Apr, [facility] [address] [id number] [address] [place] [id number] Jan, [facility] [address] [id number] [address] [place] [id number] Jan, [facility] [address] [id number] [address] [place] [id number] Dec, [facility] [address] [id number] [address] [place] [id number] Dec, [facility] [address] [id number] [address] [place] [id number] May, [facility] [address] [id number] [address] [place] [id number] Mar, [facility] [address] [id number] [address] [place] [id number] Mar, [facility] [address] [id number] [address] [place] [id number] Jan, IMMUNIZATIONS No Known Immunizations SOCIAL HISTORY [...]
--- OUTSIDE RECORDS SUMMARY | 2020-01-28 12:27 | XMS REPORT ---
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 Z79.01 Active 407410970 Problem History of venous thromboembolism V12.51 Active 140516561 Problem Cellulitis of unspecified part of limb L03.119 Active 823864759 Problem Gastroesophageal reflux disease without esophagitis K21.9 Active 754463862 Problem History of pulmonary embolism Z86.711 Active 261368783 Problem Pseudotumor cerebri G93.2 Active 28929617 Problem History of DVT (deep vein thrombosis) Z86.718 Active 837242886 ALLERGIES No Information ENCOUNTERS Encounter Location Date Diagnosis [place] [id number] [facility] [id number] [address] [place] [id number] Apr, 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 (current) use of 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 Z79.01 [facility] [address] [facility] [id number] [address] [place] [phone] Apr, 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.01 [facility] [address] [facility] [id number] [address] [place] [address] Apr, Cellulitis of unspecified pa rt of limb L03.119 ; Allergic contact dermatitis due to adhesives L23.1 and Chronic pain syndrome G89.4 [facility] [address] [facility] [id number] [address] [place] [address] Apr, [place] [address] [place] [id number] [address] [place] [address] Apr, oil heaterman 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.01 ; Cellulitis of unspecified part of limb L03.119 ; Chronic pain syndrome G89.4 and Anxiety F41.9 [facility] [address] [place] [id number] [address] [place] [id number] 16 Apr, 2015 [facility] [address] [place] [id number] [place] [address] Apr, [place] [address] [place] [id number] [place] [address] Mar, [place] [address] [address] Mar, [place] [address] [address] Mar, Sore throat J02.9 ; Gastroes ophageal reflux disease without esophagitis K21.9 ; Pseudotumor cerebri G93.2 ; Chronic pain syndrome G89.4 ; Choriocarcinoma C58 ; History of pulmonary embolism Z86.711 ; History of DVT (deep vein thrombosis) Z86.718 ; Anxiety F41.9 and Tachycardia R00.0 [place] [address] [address] Feb, Anxiety 300.00 and Chronic p ain 338.29 [place] [address] [place] [id number] [address] [place] [phone] Feb, [place] [address] [place] [id number] [address] [place] [address] Feb, [place] [address] [address] Jan, oil heaterman 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 therapy V58.61 and Dysuria 788.1 [place] [address] [place] [id number] [place] [address] Jan, Dysuria 788.1 [facility] [address] [place] [id number] [address] [place] [address] Jan, Anxiety 300.00 and Chronic p ain 338.29 [facility] [address] [place] [id number] [place] [phone] Jan, [facility] [address] [address] Jan, [facility] [address] [address] Jan, [place] [address] [address] Dec, Weakness 780.79 [place] [address] [address] Dec, 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 therapy V58.61 [place] [address] [address] Dec, Palpitations 785.1 ; Tremor 781.0 ; Weakness 780.79 ; 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 therapy V58.61 and Yeast vaginitis 112.1 [place] [address] [place] [id number] [address] [place] [address] Dec, [place] [address] [address] Dec, Cervicalgia 723.1 ; Tachycar yoseph 785.0 ; Pseudotumor cerebri 348.2 and History of venous thromboembolism V12.51 [place] [address] [address] Nov, [place] [address] [address] Nov, [place] [address] [address] Nov, Tachycardia 785.0 ; Pseudotu mor cerebri 348.2 ; Anxiety 300.00 and History of venous thromboembolism V12.51 [facility] [address] [id number] [address] [place] [address] Nov, [facility] [address] [id number] [address] [place] [address] 18 Nov, 2014 [facility] [address] [id number] [address] [place] [address] Nov, [facility] [address] [id number] [address] [place] [phone] Nov, [facility] [address] [facility] [id number] [address] [place] [phone] Nov, [facility] [address] [facility] [id number] [address] [place] [phone] Nov, [facility] [address] [facility] [id number] [address] [place] [address] Nov, [facility] [address] [facility] [id number] [address] [place] [address] October, [facility] [address] [facility] [id number] [address] [place] [address] October, [facility] [address] [place] [id number] [address] [place] [address] October, Pain in thoracic spine 724.1 and Tachycardia 785.0 [facility] [address] [id number] [address] [place] [id number] October, [facility] [address] [id number] [address] [place] [phone] October, [facility] [address] [facility] [id number] [address] [place] [id number] 14 Sep, 2014 [facility] [address] [facility] [id number] [address] [place] [phone] Sep, [facility] [address] [id number] [facility] [place] [address] Aug, [facility] [address] [id number] [address] [address], [place] [address] Aug, [facility] [address] [id number] [address] [place] [address], [place] [address] Aug, [facility] [address] [id number] [address] [place] [address], [place] [address] Aug, [facility] [address] [id number] [address] [place] [address], [place] [address] Aug, [facility] [address] [id number] [address] [place] [address], [place] [address] Aug, [facility] [address] [id number] [address] [place] [address], [place] [address] Aug, [facility] [address] [id number] [address] [address], [place] [address] Aug, [facility] [address] [id number] [address] [place] [address], [place] [address] Aug, [facility] [address] [id number] [address] [place] [address], [place] [address] Aug, [facility] [address] [id number] [address] [place] [address], [place] [address] Aug, [facility] [address] [id number] [address] [place] [address], [place] [address] Aug, 2014 [facility] [address] [id number] [address] [address], [place] [address] Jul, [facility] [address] [id number] [address] [place] [address], [place] [address] Jul, [facility] [address] [id number] [address] [place] [address], [place] [address] Jul, [facility] [address] [id number] [address] [place] [address], [place] [address] Jul, [facility] [address] [id number] [address] [place] [address], [place] [address] 23 Jul, 2014 [facility] [address] [id number] [address] [place] [address], [place] [address] 23 Jul, 2014 [facility] [address] [id number] [address] [place] [address], [place] [address] 23 Jul, 2014 [facility] [address] [id number] [address] [place] [address], [place] [address] 23 Jul, 2014 [facility] [address] [id number] [address] [address], [place] [address] 20 Jul, 2014 [facility] [address] [id number] [address] [address], [place] [address] 20 Jul, 2014 [facility] [address] [id number] [address] [address], [place] [address] 19 Jul, 2014 [facility] [address] [id number] [address] [address], [place] [address] 19 Jul, 2014 [facility] [address] [id number] [address] [place] [address], [place] [address] 17 Jul, 2014 [facility] [address] [id number] [address] [place] [address], [place] [address] 17 Jul, 2014 [facility] [address] [id number] [address] [place] [address], [place] [address] 16 Jul, 2014 [facility] [address] [id number] [address] [place] [address], [place] [address] 16 Jul, 2014 [facility] [address] [id number] [address] [place] [address], [place] [address] 16 Jul, 2014 [facility] [address] [id number] [address] [place] [id number] 16 Jul, 2014 [facility] [address] [id number] [address] [place] [id number] 13 Jul, 2014 [facility] [address] [id number] [address] [place] [address], [place] [address] Jul, [facility] [address] [id number] [address] [place] [address], [place] [address] Jul, [facility] [address] [id number] [address] [place] [address], [place] [address] Jul, 2014 [facility] [address] [id number] [address] [place] [address], [place] [address] Jul, 2014 [facility] [address] [id number] [address] [address], [place] [address] Jul, [facility] [address] [id number] [address] [place] [address], [place] [address] Jul, [facility] [address] [id number] [address] [address], [place] [address] Jul, [facility] [address] [id number] [address] [place] [address], [place] [address] Jul, [facility] [address] [id number] [address] [place] [address], [place] [address] Jul, [facility] [address] [id number] [address] [address], [place] [address] Jul, [facility] [address] [id number] [address] [address], [place] [address] Jul, [facility] [address] [id number] [address] [address], [place] [address] Jun, [facility] [address] [id number] [address] [place] [address], [place] [address] Jun, [facility] [address] [id number] [address] [address], [place] [address] Jun, [facility] [address] [id number] [address] [address], [place] [address] Jun, [facility] [address] [id number] [address] [address], [place] [address] Jun, [facility] [address] [id number] [address] [address], [place] [address] Jun, [facility] [address] [id number] [address] [address], [place] [address] Jun, [facility] [address] [id number] [address] [address], [place] [address] Jun, [facility] [address] [id number] [address] [address], [place] [address] Jun, [facility] [address] [id number] [address] [address], [place] [address] Jun, [facility] [address] [id number] [address] [address], [place] [address] Jun, [facility] [address] [id number] [address] [address], [place] [address] Jun, [facility] [address] [id number] [address] [address], [place] [address] Jun, [facility] [address] [id number] [address] [address], [place] [address] Jun, [facility] [address] [id number] [address] [address], [place] [address] Jun, [facility] [address] [id number] [address] [address], [place] [address] Jun, [facility] [address] [id number] [address] [address], [place] [address] Jun, [facility] [address] [id number] [address] [address], [place] [address] Jun, [facility] [address] [id number] [address] [address], [place] [address] Jun, [facility] [address] [id number] [address] [address], [place] [address] Jun, [facility] [address] [id number] [address] [address], [place] [address] May, [facility] [address] [id number] [address] [address], [place] [address] May, [facility] [address] [id number] [address] [address], [place] [address] May, [facility] [address] [id number] [address] [address], [place] [address] May, [facility] [address] [id number] [address] [address], [place] [address] May, [facility] [address] [id number] [address] [address], [place] [address] May, [facility] [address] [id number] [address] [address], [place] [address] May, [facility] [address] [id number] [address] [address], [place] [address] May, [facility] [address] [id number] [address] [address], [place] [address] May, [facility] [address] [id number] [address] [address], [place] [address] May, [facility] [address] [id number] [address] [address], [place] [address] May, [facility] [address] [id number] [address] [address], [place] [address] 18 May, 2014 [facility] [address] [id number] [address] [place] [address], [place] [address] 18 May, 2014 [facility] [address] [id number] [address] [address], [place] [address] 17 May, 2014 [facility] [address] [id number] [address] [address], [place] [address] 16 May, 2014 [facility] [address] [id number] [address] [place] [address], [place] [address] 16 May, 2014 [facility] [address] [id number] [address] [address], [place] [address] 15 May, 2014 [facility] [address] [id number] [address] [address], [place] [address] 15 May, 2014 [facility] [address] [id number] [address] [place] [address], [place] [address] May, [facility] [address] [id number] [address] [place] [address], [place] [address] May, [facility] [address] [id number] [address] [place] [address], [place] [address] May, [facility] [address] [id number] [address] [place] [address], [place] [address] May, [facility] [address] [id number] [address] [place] [address], [place] [address] May, [facility] [address] [id number] [address] [place] [address], [place] [address] May, [facility] [address] [id number] [address] [place] [address], [place] [address] May, [facility] [address] [id number] [address] [place] [address], [place] [address] May, [facility] [address] [id number] [address] [place] [address], [place] [address] May, [facility] [address] [id number] [address] [place] [address], [place] [address] May, [facility] [address] [id number] [address] [place] [address], [place] [address] May, [facility] [address] [id number] [address] [place] [address], [place] [address] May, [facility] [address] [id number] [address] [place] [address], [place] [address] May, [facility] [address] [id number] [address] [place] [address], [place] [address] May, [facility] [address] [id number] [address] [address], [place] [address] May, [facility] [address] [id number] [address] [place] [address], [place] [address] May, [facility] [address] [id number] [address] [place] [address], [place] [address] Apr, [facility] [address] [id number] [address] [place] [address], [place] [address] Apr, [facility] [address] [id number] [address] [place] [address], [place] [address] Apr, [facility] [address] [id number] [address] [place] [address], [place] [address] Apr, [facility] [address] [id number] [address] [place] [address], [place] [address] Apr, [facility] [address] [id number] [address] [place] [address], [place] [address] Apr, [facility] [address] [id number] [address] [place] [address], [place] [address] Apr, [facility] [address] [id number] [address] [place] [address], [place] [address] Apr, [facility] [address] [id number] [address] [address], [place] [id number] Apr, [facility] [address] [id number] [address] [address], [place] [id number] Apr, [facility] [address] [id number] [address] [address], [place] [id number] Mar, [facility] [address] [id number] [address] [address], [place] [id number] Mar, [facility] [address] [id number] [address] [place] [place] [address] [address] Mar, [facility] [address] [id number] [address] [address], [place] [id number] 31 Mar, 2013 [facility] [address] [id number] [address] [address], [place] [id number] Mar, [facility] [address] [id number] [address] [address], [place] [id number] 30 Mar, 2014 [facility] [address] [id number] [address] [address], [place] [id number] Mar, [facility] [address] [id number] [address] [address], [place] [id number] Mar, [facility] [address] [id number] [address] [address], [place] [id number] Mar, [facility] [address] [id number] [address] [address], [place] [address] Mar, [facility] [address] [id number] [address] [place] [id number] Mar, [facility] [address] [id number] [address] [place] [id number] Mar, [facility] [address] [id number] [address] [place] [id number] Mar, [facility] [address] [id number] [address] [place] [id number] Mar, 2013 [facility] [address] [id number] [address] [place] [id number] Mar, 2013 [facility] [address] [id number] [address] [place] [id number] Mar, [facility] [address] [id number] [address] [place] [id number] Mar, [facility] [address] [id number] [address] [place] [id number] Mar, 2013 [facility] [address] [id number] [address] [place] [address], [place] [id number] 02 Mar, 2013 [facility] [address] [id number] [address] [address], [place] [id number] 02 Mar, 2013 [facility] [address] [id number] [address] [address], [place] [id number] 05 Sep, 2013 [facility] [address] [id number] [address] [address], [place] [id number] 05 Sep, 2013 [facility] [address] [id number] [address] [address], [place] [id number] 04 Sep, 2013 [facility] [address] [id number] [address] [place] [address], [place] [id number] 04 Sep, 2013 [facility] [address] [id number] [address] [address], [place] [id number] 03 Feb, 2013 [facility] [address] [id number] [address] [address], [place] [id number] 03 Feb, 2013 [facility] [address] [id number] [address] [place] [address], [place] [id number] 02 Feb, 2013 [facility] [address] [id number] [address] [address], [place] [id number] Feb, 2013 [facility] [address] [id number] [address] [address], [place] [id number] 02 Feb, 2013 [facility] [address] [id number] [address] [address], [place] [id number] Feb, 2013 [facility] [address] [id number] [address] [address], [place] [id number] Jan, [facility] [address] [id number] [address] [address], [place] [address] Jan, [facility] [address] [id number] [address] [address], [place] [id number] Jan, [facility] [address] [id number] [address] [place] [address], [place] [id number] Jan, [facility] [address] [id number] [facility] [place] [address] Jan, [facility] [address] [id number] [address] [address], [place] [id number] Jan, [facility] [address] [id number] [address] [address], [place] [id number] Jan, [facility] [address] [id number] [address] [address], [place] [id number] Jan, [facility] [address] [id number] [address] [address], [place] [address] Jan, [facility] [address] [id number] [address] [place] [address], [place] [id number] Jan, [facility] [address] [address] [id number] [address] [place] [address], [place] [id number] Jan, [facility] [address] [id number] [address] [address], [place] [address] Jan, [facility] [address] [id number] [address] [address], [place] [address] Dec, [facility] [address] [id number] [address] [address], [place] [address] Dec, [facility] [address] [id number] [address] [address], [place] [address] Dec, [facility] [address] [id number] [address] [address], [place] [address] Dec, [facility] [address] [id number] [address] [address], [place] [address] Dec, [facility] [address] [id number] [address] [place] [address], [place] [address] Dec, [facility] [address] [id number] [address] [address], [place] [address] Dec, [facility] [address] [id number] [address] [address], [place] [address] Dec, [facility] [address] [id number] [facility] [place] [address] Dec, [facility] [address] [id number] [address] [address], [place] [address] Dec, [facility] [address] [id number] [address] [address], [place] [address] Dec, [facility] [address] [id number] [address] [address], [place] [address] Dec, [facility] [address] [id number] [address] [address], [place] [address] Nov, [facility] [address] [id number] [address] [address], [place] [address] Nov, [facility] [address] [id number] [address] [address], [place] [address] Nov, [facility] [address] [id number] [address] [address], [place] [address] Nov, [facility] [address] [id number] [address] [address], [place] [address] Nov, [facility] [address] [id number] [address] [address], [place] [address] Nov, [facility] [address] [id number] [address] [address], [place] [address] Nov, [facility] [address] [id number] [address] [address], [place] [address] Nov, [facility] [address] [id number] [address] [address], [place] [address] Nov, [facility] [address] [id number] [address] [address], [place] [address] Nov, [facility] [address] [id number] [address] [address], [place] [address] Nov, [facility] [address] [id number] [facility] [place] [place] [address] Nov, [facility] [address] [id number] [address] [address], [place] [address] Nov, [facility] [address] [id number] [address] [address], [place] [address] Nov, [facility] [address] [id number] [address] [address], [place] [address] October, [facility] [address] [id number] [address] [address], [place] [address] October, [facility] [address] [id number] [address] [address], [place] [address] October, [facility] [address] [id number] [address] [address], [place] [address] October, [facility] [address] [id number] [address] [address], [place] [address] October, [facility] [address] [id number] [address] [address], [place] [address] October, [facility] [address] [id number] [address] [address], [place] [address] October, [facility] [address] [id number] [address] [address], [place] [address] October, [facility] [address] [id number] [address] [address], [place] [address] October, [facility] [address] [id number] [address] [address], [place] [address] October, [facility] [address] [id number] [address] [address], [place] [address] October, [facility] [address] [id number] [address] [address], [place] [address] October, [facility] [address] [id number] [address] [address], [place] [address] Sep, [facility] [address] [id number] [facility] [place] [address] Sep, [facility] [address] [id number] [address] [address], [place] [address] Sep, [facility] [address] [id number] [facility] [place] [address] Sep, [facility] [address] [id number] [address] [address], [place] [address] Sep, [facility] [address] [id number] [address] [address], [place] [address] Sep, [facility] [address] [id number] [address] [address], [place] [address] Aug, [facility] [address] [id number] [address] [address], [place] [address] Aug, [facility] [address] [id number] [address] [address], [place] [address] Aug, [facility] [address] [id number] [address] [address], [place] [address] Aug, [facility] [address] [id number] [address] [address], [place] [address] Aug, [facility] [address] [id number] [address] [address], [place] [address] Aug, [facility] [address] [id number] [address] [address], [place] [address] Jul, [facility] [address] [id number] [address] [address], [place] [address] Jul, [facility] [address] [id number] [address] [address], [place] [address] Jul, [facility] [address] [id number] [address] [address], [place] [address] Jul, [facility] [address] [id number] [address] [address], [place] [address] 13 Jul, 2013 [facility] [address] [id number] [address] [address], [place] [address] Jul, [facility] [address] [id number] [address] [address], [place] [address] Jul, [facility] [address] [id number] [address] [address], [place] [address] Jul, [facility] [address] [id number] [address] [address], [place] [address] Jul, [facility] [address] [id number] [address] [address], [place] [address] Jul, [facility] [address] [id number] [address] [address], [place] [address] Jun, [facility] [address] [id number] [address] [address], [place] [address] Jun, [facility] [address] [id number] [address] [address], [place] [address] Jun, [facility] [address] [id number] [address] [address], [place] [address] Jun, [facility] [address] [id number] [address] [address], [place] [address] Jun, [facility] [address] [id number] [address] [address], [place] [address] Jun, [facility] [address] [id number] [address] [address], [place] [address] Jun, [facility] [address] [id number] [address] [place] [address], [place] [address] Jun, [facility] [address] [id number] [address] [place] [address], [place] [address] May, [facility] [address] [id number] [address] [address], [place] [address] May, [facility] [address] [id number] [address] [address], [place] [address] May, [facility] [address] [id number] [address] [address], [place] [address] May, [facility] [address] [id number] [address] [address], [place] [address] May, [facility] [address] [id number] [address] [address], [place] [address] May, [facility] [address] [id number] [address] [address], [place] [address] May, [facility] [address] [id number] [address] [address], [place] [address] May, [facility] [address] [id number] [address] [address], [place] [address] Apr, [facility] [address] [id number] [address] [place] [id number] Apr, [facility] [address] [id number] [address] [address], [place] [address] Apr, [facility] [address] [id number] [address] [place] [address] Apr, [facility] [address] [id number] [address] [place] [id number] Apr, [facility] [address] [id number] [address] [place] [address] Apr, [facility] [address] [id number] [address] [address], [place] [address] Mar, [facility] [address] [id number] [address] [place] [id number] Mar, [facility] [address] [id number] [address] [address], [place] [address] Mar, [facility] [address] [id number] [address] [address], [place] [address] Mar, [facility] [address] [id number] [address] [address], [place] [address] Mar, [facility] [address] [id number] [address] [address], [place] [address] Mar, [facility] [address] [id number] [address] [address], [place] [address] Mar, [facility] [address] [id number] [address] [address], [place] [address] 30 Feb, 2012 [facility] [address] [id number] [address] [address], [place] [address] 30 Feb, 2013 [facility] [address] [id number] [address] [address], [place] [address] 27 Feb, 2013 [facility] [address] [id number] [address] [address], [place] [address] Feb, 2012 [facility] [address] [id number] [address] [address], [place] [address] Feb, [facility] [address] [id number] [address] [address], [place] [address] Feb, [facility] [address] [id number] [address] [address], [place] [address] Jan, [facility] [address] [id number] [address] [address], [place] [address] Jan, [facility] [address] [id number] [address] [address], [place] [address] Jan, [facility] [address] [id number] [address] [address], [place] [address] Jan, [facility] [address] [id number] [address] [address], [place] [address] Jan, [facility] [address] [id number] [address] [address], [place] [address] Jan, [facility] [address] [id number] [address] [address], [place] [address] Jan, [facility] [address] [id number] [address] [address], [place] [address] Jan, [facility] [address] [id number] [address] [address], [place] [address] Jan, [facility] [address] [id number] [address] [address], [place] [address] Dec, [facility] [address] [id number] [address] [address], [place] [address] Dec, [facility] [address] [id number] [address] [address], [place] [address] Dec, [facility] [address] [id number] [address] [address], [place] [address] Dec, [facility] [address] [id number] [address] [address], [place] [address] Dec, [facility] [address] [id number] [address] [address], [place] [address] Dec, [facility] [address] [id number] [address] [address], [place] [address] Dec, [facility] [address] [id number] [address] [address], [place] [address] Dec, [facility] [address] [id number] [address] [address], [place] [address] Dec, [facility] [address] [id number] [address] [address], [place] [address] Dec, [facility] [address] [id number] [address] [address], [place] [address] Dec, [facility] [address] [id number] [address] [address], [place] [address] Dec, [facility] [address] [id number] [address] [address], [place] [address] Dec, [facility] [address] [id number] [address] [address], [place] [address] Nov, [facility] [address] [id number] [address] [address], [place] [address] Nov, [facility] [address] [id number] [address] [address], [place] [address] Nov, [facility] [address] [id number] [address] [place] [address], [place] [address] Nov, [facility] [address] [id number] [address] [place] [address], [place] [address] October, [facility] [address] [id number] [address] [place] [address], [place] [address] October, [facility] [address] [id number] [address] [place] [address], [place] [address] October, [facility] [address] [id number] [address] [place] [address], [place] [address] October, [facility] [address] [id number] [address] [address], [place] [address] October, [facility] [address] [id number] [address] [address], [place] [address] October, [facility] [address] [id number] [address] [address], [place] [address] Sep, [facility] [address] [id number] [address] [place] [address], [place] [address] Sep, [facility] [address] [id number] [address] [place] [address], [place] [address] Sep, [facility] [address] [id number] [address] [place] [address], [place] [address] Sep, [facility] [address] [id number] [address] [place] [address], [place] [address] Sep, [facility] [address] [id number] [facility] [place] [address] 16 Sep, 2012 [facility] [address] [id number] [address] [address], [place] [address] 12 Sep, 2012 [facility] [address] [id number] [address] [address], [place] [address] Sep, [facility] [address] [id number] [address] [address], [place] [address] Sep, [facility] [address] [id number] [address] [address], [place] [address] Sep, [facility] [address] [id number] [address] [address], [place] [address] Sep, [facility] [address] [id number] [address] [place] [address], [place] [address] Aug, [facility] [address] [id number] [address] [address], [place] [address] 25 Aug, 2012 [facility] [address] [id number] [address] [address], [place] [address] 25 Aug, 2012 [facility] [address] [id number] [address] [place] [address], [place] [address] 21 Aug, 2012 [facility] [address] [id number] [address] [place] [address], [place] [address] 19 Aug, 2012 [facility] [address] [id number] [address] [place] [address], [place] [address] 18 Aug, 2012 [facility] [address] [id number] [address] [place] [address], [place] [address] 17 Aug, 2012 [facility] [address] [id number] [address] [address], [place] [id number] 15 Aug, 2012 [facility] [address] [id number] [address] [address], [place] [id number] 15 Aug, 2012 [facility] [address] [id number] [address] [address], [place] [id number] Aug, [facility] [address] [id number] [address] [address], [place] [id number] Aug, [facility] [address] [id number] [address] [address], [place] [id number] Aug, [facility] [address] [id number] [address] [address], [place] [id number] Jul, [facility] [address] [id number] [address] [address], [place] [id number] Jul, [facility] [address] [id number] [address] [address], [place] [id number] Jul, [facility] [address] [id number] [address] [place] [address], [place] [id number] Jul, [facility] [address] [id number] [address] [address], [place] [id number] Jul, [facility] [address] [id number] [address] [address], [place] [id number] Jul, [facility] [address] [id number] [address] [address], [place] [id number] Jul, [facility] [address] [id number] [address] [address], [place] [id number] Jul, [facility] [address] [id number] [address] [address], [place] [id number] Jul, [facility] [address] [id number] [address] [address], [place] [id number] Jul, [facility] [address] [id number] [address] [place] [address], [place] [id number] May, [facility] [address] [id number] [place] [id number] May, [facility] [address] [id number] [address] [place] [address], [place] [id number] May, [facility] [address] [id number] [address] [place] [id number] May, [facility] [address] [facility] [id number] [address] [place] [id number] May, [facility] [address] [facility] [id number] [address] [place] [id number] Apr, [facility] [address] [id number] [place] [id number] Apr, [facility] [address] [facility] [id number] [address] [place] [id number] Apr, [facility] [address] [facility] [id number] [address] [place] [id number] Mar, [facility] [address] [id number] [place] [id number] Mar, [facility] [address] [facility] [id number] [address] [place] [phone] Mar, [facility] [address] [id number] [place] [id number] Feb, [facility] [address] [facility] [id number] [address] [place] [id number] Feb, [facility] [address] [facility] [id number] [address] [place] [id number] Feb, [facility] [address] [id number] [place] [id number] Feb, [facility] [address] [id number] [place] [id number] Feb, [facility] [address] [id number] [place] [id number] Jan, [facility] [address] [id number] [address] [place] [address], [place] [id number] Jan, [facility] [address] [id number] [place] [id number] Jan, [facility] [address] [id number] [place] [id number] Jan, [facility] [address] [id number] [place] [id number] Jan, [facility] [address] [facility] [id number] [address] [place] [address], [place] [id number] Jan, [facility] [address] [facility] [id number] [address] [place] [address], [place] [id number] Jan, [facility] [address] [facility] [id number] [address] [place] [address], [place] [id number] Aug, [facility] [address] [id number] [place] [id number] Aug, [facility] [address] [facility] [id number] [address] [place] [address], [place] [id number] Jul, [facility] [address] [facility] [id number] [address] [place] [address], [place] [id number] Jul, [facility] [address] [facility] [id number] [address] [place] [address], [place] [id number] Jul, [facility] [address] [id number] [place] [id number] Jul, [facility] [address] [facility] [id number] [address] [place] [address], [place] [id number] Jul, [facility] [address] [id number] [place] [id number] Jul, [facility] [address] [facility] [id number] [address] [address], [place] [id number] Jul, [facility] [address] [id number] [place] [id number] Jul, [facility] [address] [id number] [place] [id number] Jul, [facility] [address] [id number] [place] [id number] Jul, [facility] [address] [facility] [id number] [address] [address], [place] [id number] May, [facility] [address] [id number] [address] [place] [id number] May, [facility] [address] [id number] [address] [place] [id number] May, [facility] [address] [id number] [address] [place] [phone] Apr, [facility] [address] [id number] [address] [place] [id number] Jan, [facility] [facility] [address] [id number] [address] [place] [phone] Jan, [facility] [address] [id number] [address] [place] [phone] Dec, [facility] [address] [id number] [address] [place] [id number] Dec, [facility] [address] [id number] [address] [place] [phone] May, [facility] [address] [id number] [address] [place] [id number] Mar, [facility] [address] [id number] [address] [place] [phone] Mar, [facility] [address] [id number] [address] [place] [phone] Jan, IMMUNIZATIONS No Known Immunizations SOCIAL HISTORY [...]
--- OUTSIDE RECORDS SUMMARY | 2020-01-28 12:28 | XMS REPORT ---
Author Author Heydi Candelario Doctor Organization [facility] Address Unknown Phone Unavailable Care Team Providers Care Sr Technical Sales Consultant Name Role Phone Migration, Doctor Unavailable Unavailable PROBLEMS Type Condition ICD9-CM Code SCF50-LR Code Onset Dates Condition S tatus SNOMED Code Problem Chronic pain syndrome G89.4 Active 490518441 Problem Sore throat J02.9 Active 13100599 3 Problem Choriocarcinoma C58 Active 1881 21331 Problem detention 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 Z79.01 Active 688063943 Problem History of venous thromboembolism V12.51 Active 243393559 Problem Cellulitis of unspecified part of limb L03.119 Active 301330345 Problem Gastroesophageal reflux disease without esophagitis K21.9 Active 446331500 Problem History of pulmonary embolism Z86.711 Active 293527547 Problem Pseudotumor cerebri G93.2 Active 51110707 Problem History of DVT (deep vein thrombosis) Z86.718 Active 687818320 ALLERGIES No Information ENCOUNTERS Encounter Location Date Diagnosis [place] [address] [address] [facility] [id number] [address] [place] [address] Apr, meterman (current) use of 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 Z79.01 [place] [id number] [facility] [id number] [address] [place] [address] Apr, meterman 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.01 [place] [address] [facility] [id number] [address] [place] [address] Apr, Cellulitis of unspecified pa rt of limb L03.119 ; Allergic contact dermatitis due to adhesives L23.1 and Chronic pain syndrome G89.4 [facility] [address] [facility] [id number] [address] [place] [address] Apr, [place] [address] [facility] [id number] [address] [place] [address] Apr, detention 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.01 ; Cellulitis of unspecified part of limb L03.119 ; Chronic pain syndrome G89.4 and Anxiety F41.9 [place] [address] [place] [id number] [address] [place] [address] 16 Apr, 2015 [place] [address] [place] [id number] [place] [address] Apr, [place] [address] [address] Mar, [place] [address] [place] [id number] [place] [address] Mar, [place] [address] [address] Mar, Sore throat J02.9 ; Gastroes ophageal reflux disease without esophagitis K21.9 ; Pseudotumor cerebri G93.2 ; Chronic pain syndrome G89.4 ; Choriocarcinoma C58 ; History of pulmonary embolism Z86.711 ; History of DVT (deep vein thrombosis) Z86.718 ; Anxiety F41.9 and Tachycardia R00.0 [place] [address] [address] Feb, Anxiety 300.00 and Chronic p ain 338.29 [place] [address] [place] [id number] [address] [place] [address] Feb, [place] [id number] [place] [address] Feb, [place] [address] [place] [id number] [place] [address] Jan, detention 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 therapy V58.61 and Dysuria 788.1 [place] [address] [address] [place] [id number] [address] [place] [address] Jan, Dysuria 788.1 [place] [address] [place] [id number] [place] [address] Jan, Anxiety 300.00 and Chronic p ain 338.29 [place] [address] [address] Jan, [facility] [address] [address] Jan, [place] [address] [address] Jan, [place] [address] [address] Dec, Weakness 780.79 [place] [address] [address] Dec, meterman 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 therapy V58.61 [place] [address] [address] Dec, Palpitations 785.1 ; Tremor 781.0 ; Weakness 780.79 ; detention 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 therapy V58.61 and Yeast vaginitis 112.1 [place] [address] [address] Dec, [place] [address] [address] Dec, Cervicalgia 723.1 ; Tachycar yoseph 785.0 ; Pseudotumor cerebri 348.2 and History of venous thromboembolism V12.51 [place] [address] [place] [id number] [address] [place] [address] Nov, [place] [address] [address] Nov, [place] [address] [address] Nov, Tachycardia 785.0 ; Pseudotu mor cerebri 348.2 ; Anxiety 300.00 and History of venous thromboembolism V12.51 [facility] [address] [id number] [address] [place] [address], [place] [address] Nov, [facility] [address] [id number] [address] [place] [address], [place] [address] 18 Nov, 2014 [facility] [address] [id number] [address] [place] [address], [place] [address] 16 Nov, 2014 [facility] [address] [id number] [address] [place] [address], [place] [address] Nov, [facility] [address] [id number] [address] [place] [address], [place] [address] Nov, [facility] [address] [id number] [address] [place] [address], [place] [address] Nov, [facility] [address] [id number] [address] [place] [address], [place] [address] Nov, [facility] [address] [id number] [address] [place] [address] October, [facility] [address] [id number] [address] [place] [address] October, [facility] [address] [id number] [address] [place] [address] October, Pain in thoracic spine 724.1 and Tachycardia 785.0 [facility] [address] [id number] [address] [place] [address] October, [facility] [address] [id number] [address] [place] [address] October, [facility] [address] [id number] [address] [place] [address] Sep, [facility] [address] [id number] [address] [place] [address] Sep, [facility] [address] [id number] [address] [place] [address] Aug, [facility] [address] [id number] [address] [place] [address], [place] [address] Aug, [facility] [address] [id number] [address] [place] [address], [place] [address] Aug, [facility] [address] [id number] [address] [place] [address], [place] [address] 17 Aug, 2014 [facility] [address] [id number] [address] [place] [address], [place] [address] Aug, [facility] [address] [id number] [address] [place] [address], [place] [address] 16 Aug, 2014 [facility] [address] [id number] [address] [place] [address], [place] [address] Aug, [facility] [address] [id number] [address] [place] [address], [place] [address] Aug, [facility] [address] [id number] [address] [place] [address], [place] [address] Aug, 2014 [facility] [address] [id number] [address] [place] [address], [place] [address] Aug, [facility] [address] [id number] [address] [place] [address], [place] [address] Aug, [facility] [address] [id number] [address] [place] [address], [place] [address] Aug, [facility] [address] [id number] [address] [place] [address], [place] [address] Jul, 2014 [facility] [address] [id number] [address] [place] [address], [place] [address] Jul, 2014 [facility] [address] [id number] [address] [place] [address], [place] [address] Jul, 2014 [facility] [address] [id number] [address] [place] [address], [place] [address] Jul, 2014 [facility] [address] [id number] [address] [place] [address], [place] [address] b, 2014 [facility] [address] [id number] [address] [place] [address], [place] [address] 23 Jul, 2014 [facility] [address] [id number] [address] [place] [address], [place] [address] 23 Jul, 2014 [facility] [address] [id number] [address] [place] [address], [place] [address] 23 Jul, 2014 [facility] [address] [id number] [address] [place] [address], [place] [address] 20 Jul, 2014 [facility] [address] [id number] [address] [place] [address], [place] [address] 20 Jul, 2014 [facility] [address] [id number] [address] [place] [address], [place] [address] 19 Jul, 2014 [facility] [address] [id number] [address] [place] [address], [place] [address] 19 Jul, 2014 [facility] [address] [id number] [address] [place] [address], [place] [address] 17 Jul, 2014 [facility] [address] [id number] [address] [place] [address], [place] [address] 17 Jul, 2014 [facility] [address] [id number] [address] [place] [address], [place] [address] 16 Jul, 2014 [facility] [address] [id number] [address] [place] [address], [place] [address] 16 Jul, 2014 [facility] [address] [id number] [address] [place] [address], [place] [address] 16 Jul, 2014 [facility] [address] [id number] [address] [place] [address], [place] [address] 16 Jul, 2014 [facility] [address] [id number] [address] [place] [address], [place] [address] 13 Jul, 2014 [facility] [address] [id number] [address] [place] [address], [place] [address] Jul, 2014 [facility] [address] [id number] [address] [place] [address], [place] [address] Jul, 2014 [facility] [address] [id number] [address] [place] [address], [place] [address] Jul, 2014 [facility] [address] [id number] [address] [place] [address], [place] [address] Jul, 2014 [facility] [address] [id number] [address] [place] [address], [place] [address] Jul, 2014 [facility] [address] [id number] [address] [place] [address], [place] [address] Jul, [facility] [address] [id number] [address] [place] [address], [place] [address] Jul, [facility] [address] [id number] [address] [place] [address], [place] [address] Jul, [facility] [address] [id number] [address] [place] [address], [place] [address] Jul, [facility] [address] [id number] [address] [place] [address], [place] [address] Jul, [facility] [address] [id number] [address] [place] [address], [place] [address] Jul, [facility] [address] [id number] [address] [place] [address], [place] [address] Jun, [facility] [address] [id number] [address] [place] [address], [place] [address] Jun, [facility] [address] [id number] [address] [place] [address], [place] [address] Jun, [facility] [address] [id number] [address] [place] [address], [place] [address] Jun, [facility] [address] [id number] [address] [place] [address], [place] [address] Jun, [facility] [address] [id number] [address] [place] [address], [place] [address] Jun, [facility] [address] [id number] [address] [place] [address], [place] [address] Jun, [facility] [address] [id number] [address] [place] [address], [place] [address] Jun, [facility] [address] [id number] [address] [place] [address], [place] [address] Jun, [facility] [address] [id number] [address] [place] [address], [place] [address] Jun, [facility] [address] [id number] [address] [place] [address], [place] [address] Jun, [facility] [address] [id number] [address] [place] [address], [place] [address] Jun, [facility] [address] [id number] [address] [place] [address], [place] [address] Jun, [facility] [address] [id number] [address] [place] [address], [place] [address] Jun, [facility] [address] [id number] [address] [place] [address], [place] [address] Jun, [facility] [address] [id number] [address] [place] [address], [place] [address] Jun, [facility] [address] [id number] [address] [place] [address], [place] [address] Jun, [facility] [address] [id number] [address] [place] [address], [place] [address] Jun, [facility] [address] [id number] [address] [place] [address], [place] [address] Jun, [facility] [address] [id number] [address] [place] [address], [place] [address] Jun, [facility] [address] [id number] [address] [place] [address], [place] [address] May, [facility] [address] [id number] [address] [place] [address], [place] [address] May, [facility] [address] [id number] [address] [place] [address], [place] [address] May, [facility] [address] [id number] [address] [place] [address], [place] [address] May, [facility] [address] [id number] [address] [place] [address], [place] [address] May, [facility] [address] [id number] [address] [place] [address], [place] [address] May, [facility] [address] [id number] [address] [place] [address], [place] [address] May, [facility] [address] [id number] [address] [place] [address], [place] [address] May, [facility] [address] [id number] [address] [place] [address], [place] [address] May, [facility] [address] [id number] [address] [place] [address], [place] [address] May, [facility] [address] [id number] [address] [place] [address], [place] [address] May, [facility] [address] [id number] [address] [place] [address], [place] [address] 18 May, 2014 [facility] [address] [id number] [address] [place] [address], [place] [address] 18 May, 2014 [facility] [address] [id number] [address] [place] [address], [place] [address] 17 May, 2014 [facility] [address] [id number] [address] [place] [address], [place] [address] 16 May, 2014 [facility] [address] [id number] [address] [place] [address], [place] [address] 16 May, 2014 [facility] [address] [id number] [address] [place] [address], [place] [address] 15 May, 2014 [facility] [address] [id number] [address] [place] [address], [place] [address] 15 May, 2014 [facility] [address] [id number] [address] [place] [address], [place] [address] May, [facility] [address] [id number] [address] [place] [address], [place] [address] May, [facility] [address] [id number] [address] [place] [address], [place] [address] May, [facility] [address] [id number] [address] [place] [address], [place] [address] May, [facility] [address] [id number] [address] [place] [address], [place] [address] May, [facility] [address] [id number] [address] [place] [address], [place] [address] May, [facility] [address] [id number] [address] [place] [address], [place] [address] May, [facility] [address] [id number] [address] [place] [address], [place] [address] May, [facility] [address] [id number] [address] [place] [address], [place] [address] May, [facility] [address] [id number] [address] [place] [address], [place] [address] May, [facility] [address] [id number] [address] [place] [address], [place] [address] May, [facility] [address] [id number] [address] [place] [address], [place] [address] May, [facility] [address] [id number] [address] [place] [address], [place] [address] May, [facility] [address] [id number] [address] [place] [address], [place] [address] May, [facility] [address] [id number] [address] [place] [address], [place] [address] May, [facility] [address] [id number] [address] [place] [address], [place] [address] May, [facility] [address] [id number] [address] [place] [address], [place] [address] Apr, [facility] [address] [id number] [address] [place] [address], [place] [address] Apr, [facility] [address] [id number] [address] [place] [address], [place] [address] Apr, [facility] [address] [id number] [address] [place] [address], [place] [address] Apr, [facility] [address] [id number] [address] [place] [address], [place] [address] Apr, [facility] [address] [id number] [address] [place] [address], [place] [address] Apr, [facility] [address] [id number] [address] [place] [address], [place] [address] Apr, [facility] [address] [id number] [address] [place] [address], [place] [address] Apr, [facility] [address] [id number] [address] [place] [address], [place] [address] Apr, [facility] [address] [id number] [address] [place] [address], [place] [address] Apr, [facility] [address] [id number] [address] [place] [address], [place] [address] Mar, [facility] [address] [id number] [address] [place] [address], [place] [address] Mar, [facility] [address] [id number] [address] [place] [address], [place] [address] Mar, [facility] [address] [id number] [address] [place] [address], [place] [address] 31 Mar, 2013 [facility] [address] [id number] [address] [place] [address], [place] [address] 30 Mar, 2013 [facility] [address] [id number] [address] [place] [address], [place] [address] 30 Mar, 2014 [facility] [address] [id number] [address] [place] [address], [place] [address] Mar, 2013 [facility] [address] [id number] [address] [place] [address], [place] [address] 17 Mar, 2013 [facility] [address] [id number] [address] [place] [address], [place] [address] 15 Mar, 2014 [facility] [address] [id number] [address] [place] [id number] 15 Mar, 2014 [facility] [address] [id number] [address] [place] [address], [place] [address] 15 Mar, 2014 [facility] [address] [id number] [address] [place] [id number] Mar, [facility] [address] [id number] [address] [place] [address], [place] [address] Mar, [facility] [address] [id number] [address] [place] [id number] Mar, [facility] [address] [id number] [address] [place] [id number] Mar, [facility] [address] [id number] [address] [place] [id number] Mar, 2013 [facility] [address] [id number] [address] [place] [address], [place] [address] Mar, [facility] [address] [id number] [address] [place] [id number] Mar, [facility] [address] [id number] [address] [place] [id number] Mar, 2013 [facility] [address] [id number] [address] [place] [address], [place] [address] 02 Mar, 2013 [facility] [address] [id number] [address] [place] [address], [place] [address] 05 Sep, 2013 [facility] [address] [id number] [address] [place] [address], [place] [address] 05 Sep, 2013 [facility] [address] [id number] [address] [place] [address], [place] [address] 04 Sep, 2013 [facility] [address] [id number] [address] [place] [address], [place] [address] 04 Sep, 2013 [facility] [address] [id number] [address] [place] [address], [place] [address] 03 Feb, 2013 [facility] [address] [id number] [address] [place] [address], [place] [address] Feb, 2013 [facility] [address] [id number] [address] [place] [address], [place] [address] Feb, 2013 [facility] [address] [id number] [address] [place] [address], [place] [address] Feb, 2013 [facility] [address] [id number] [address] [place] [address], [place] [address] Feb, 2013 [facility] [address] [id number] [address] [place] [address], [place] [address] Feb, 2013 [facility] [address] [id number] [address] [place] [address], [place] [address] Jan, [facility] [address] [id number] [address] [place] [address], [place] [address] Jan, [facility] [address] [id number] [address] [place] [address], [place] [address] Jan, [facility] [address] [id number] [address] [place] [address], [place] [address] Jan, [facility] [address] [id number] [address] [place] [address], [place] [address] Jan, [facility] [address] [id number] [address] [place] [address], [place] [address] Jan, [facility] [address] [id number] [address] [place] [address], [place] [address] Jan, [facility] [address] [id number] [address] [place] [address], [place] [address] Jan, [facility] [address] [id number] [address] [place] [address], [place] [address] Jan, [facility] [address] [id number] [address] [place] [address], [place] [address] Jan, [facility] [address] [id number] [address] [place] [address], [place] [address] Jan, [facility] [address] [id number] [address] [place] [address], [place] [address] Jan, [facility] [address] [id number] [address] [place] [address], [place] [address] Dec, [facility] [address] [id number] [address] [place] [address], [place] [address] Dec, [facility] [address] [id number] [address] [place] [address], [place] [address] Dec, [facility] [address] [id number] [address] [place] [address], [place] [address] Dec, [facility] [address] [id number] [address] [place] [address], [place] [address] Dec, [facility] [address] [id number] [address] [place] [address], [place] [address] Dec, [facility] [address] [id number] [address] [place] [address], [place] [address] Dec, [facility] [address] [id number] [address] [place] [address], [place] [address] Dec, [facility] [address] [id number] [address] [place] [address], [place] [address] Dec, [facility] [address] [id number] [address] [place] [address], [place] [address] Dec, [facility] [address] [id number] [address] [place] [address], [place] [address] Dec, [facility] [address] [id number] [address] [place] [address], [place] [address] Dec, [facility] [address] [address] [id number] [address] [place] [address], [place] [address] Nov, [facility] [address] [id number] [address] [place] [address], [place] [address] Nov, [facility] [address] [id number] [address] [place] [address], [place] [address] Nov, [facility] [address] [id number] [address] [place] [address], [place] [address] Nov, [facility] [address] [id number] [address] [place] [address], [place] [address] Nov, [facility] [address] [id number] [address] [place] [address], [place] [address] Nov, [facility] [address] [id number] [address] [place] [address], [place] [address] Nov, [facility] [address] [id number] [address] [place] [address], [place] [address] Nov, [facility] [address] [id number] [address] [place] [address] Nov, [facility] [address] [id number] [address] [place] [address], [place] [address] Nov, [facility] [address] [id number] [address] [place] [address], [place] [address] Nov, [facility] [address] [id number] [address] [place] [address], [place] [address] Nov, [facility] [address] [id number] [address] [place] [address], [place] [address] Nov, [facility] [address] [id number] [address] [place] [address], [place] [address] Nov, [facility] [address] [id number] [address] [place] [address], [place] [address] October, [facility] [address] [id number] [address] [place] [address], [place] [address] October, [facility] [address] [id number] [address] [place] [address], [place] [address] October, [facility] [address] [id number] [address] [place] [address], [place] [address] October, [facility] [address] [id number] [address] [place] [address], [place] [address] October, [facility] [address] [id number] [address] [place] [address], [place] [address] October, [facility] [address] [id number] [address] [place] [address], [place] [address] October, [facility] [address] [id number] [address] [place] [address], [place] [address] October, [facility] [address] [id number] [address] [place] [address], [place] [address] October, [facility] [address] [id number] [address] [place] [address], [place] [address] October, [facility] [address] [id number] [address] [place] [address], [place] [address] October, [facility] [address] [id number] [address] [place] [address], [place] [address] October, [facility] [address] [id number] [address] [place] [address], [place] [address] Sep, [facility] [address] [id number] [address] [place] [address], [place] [address] Sep, [facility] [address] [id number] [facility] [place] [place] [address] Sep, [facility] [address] [id number] [address] [place] [address], [place] [address] Sep, [facility] [address] [id number] [address] [place] [address], [place] [address] Sep, [facility] [address] [id number] [address] [place] [address], [place] [address] Sep, [facility] [address] [id number] [address] [place] [address], [place] [address] Aug, [facility] [address] [id number] [address] [place] [address], [place] [address] Aug, [facility] [address] [id number] [address] [place] [address], [place] [address] Aug, [facility] [address] [id number] [address] [place] [address], [place] [address] Aug, [facility] [address] [id number] [address] [place] [address], [place] [address] Aug, [facility] [address] [id number] [address] [place] [address], [place] [address] Aug, [facility] [address] [id number] [address] [place] [address], [place] [address] Jul, [facility] [address] [id number] [address] [place] [address], [place] [address] Jul, [facility] [address] [id number] [address] [place] [address], [place] [address] Jul, [facility] [address] [id number] [address] [place] [address], [place] [address] Jul, [facility] [address] [id number] [address] [place] [address], [place] [address] Jul, [facility] [address] [id number] [address] [place] [address], [place] [address] 13 Jul, 2013 [facility] [address] [id number] [address] [place] [address], [place] [address] Jul, [facility] [address] [id number] [address] [place] [address], [place] [address] Jul, [facility] [address] [id number] [address] [place] [address], [place] [address] Jul, [facility] [address] [id number] [address] [place] [address], [place] [address] Jul, [facility] [address] [id number] [address] [place] [address], [place] [address] Jun, [facility] [address] [id number] [address] [place] [address], [place] [address] Jun, [facility] [address] [id number] [address] [place] [address], [place] [address] Jun, [facility] [address] [id number] [address] [place] [address], [place] [address] Jun, [facility] [address] [id number] [address] [place] [address], [place] [address] Jun, [facility] [address] [id number] [address] [place] [address], [place] [address] Jun, [facility] [address] [id number] [address] [place] [address], [place] [address] Jun, [facility] [address] [id number] [address] [place] [address], [place] [address] Jun, [facility] [address] [id number] [address] [place] [address], [place] [address] May, [facility] [address] [id number] [address] [place] [address], [place] [address] May, [facility] [address] [id number] [address] [place] [address] [address] May, [facility] [address] [id number] [address] [place] [address], [place] [address] May, [facility] [address] [id number] [address] [place] [address], [place] [address] May, [facility] [address] [id number] [address] [place] [address], [place] [address] May, [facility] [address] [id number] [address] [place] [address], [place] [address] May, [facility] [address] [id number] [address] [place] [address], [place] [address] May, [facility] [address] [id number] [address] [place] [address], [place] [address] Apr, [facility] [address] [id number] [address] [place] [address], [place] [address] Apr, [facility] [address] [id number] [address] [place] [address] Apr, [facility] [address] [id number] [address] [place] [address] Apr, [facility] [address] [id number] [address] [place] [address] Apr, [facility] [address] [id number] [address] [place] [address] Apr, [facility] [address] [id number] [address] [place] [address] Mar, [facility] [address] [id number] [address] [place] [address] Mar, [facility] [address] [id number] [address] [place] [address] Mar, [facility] [address] [id number] [address] [place] [address] Mar, [facility] [address] [id number] [address] [place] [address], [place] [address] Mar, [facility] [address] [id number] [address] [place] [address], [place] [address] Mar, [facility] [address] [id number] [address] [place] [address], [place] [address] Mar, [facility] [address] [id number] [address] [place] [address], [place] [address] 30 Feb, 2013 [facility] [address] [id number] [address] [place] [address], [place] [address] 30 Feb, 2013 [facility] [address] [id number] [address] [place] [address], [place] [address] 27 Feb, 2013 [facility] [address] [id number] [address] [place] [address], [place] [address] Feb, [facility] [address] [id number] [address] [place] [address], [place] [address] Feb, [facility] [address] [id number] [address] [place] [address], [place] [address] Feb, [facility] [address] [id number] [address] [place] [address], [place] [address] Jan, [facility] [address] [id number] [address] [place] [address], [place] [address] Jan, [facility] [address] [id number] [address] [place] [address], [place] [address] Jan, [facility] [address] [id number] [address] [place] [address], [place] [address] Jan, [facility] [address] [id number] [address] [place] [address], [place] [address] Jan, [facility] [address] [id number] [address] [place] [address], [place] [address] Jan, [facility] [address] [id number] [address] [place] [address], [place] [address] Jan, [facility] [address] [id number] [address] [place] [address], [place] [address] Jan, [facility] [address] [id number] [address] [place] [address], [place] [address] Jan, [facility] [address] [id number] [address] [place] [address], [place] [address] Dec, [facility] [address] [id number] [address] [place] [address], [place] [address] Dec, [facility] [address] [id number] [address] [place] [address], [place] [address] Dec, [facility] [address] [id number] [address] [place] [address], [place] [address] Dec, [facility] [address] [id number] [address] [place] [address], [place] [address] Dec, [facility] [address] [id number] [address] [place] [address], [place] [address] Dec, [facility] [address] [id number] [address] [place] [address], [place] [address] Dec, [facility] [address] [id number] [address] [place] [address], [place] [address] Dec, [facility] [address] [id number] [address] [place] [address], [place] [address] Dec, [facility] [address] [id number] [address] [place] [address], [place] [address] Dec, [facility] [address] [id number] [address] [place] [address], [place] [address] Dec, [facility] [address] [id number] [address] [place] [address], [place] [address] Dec, [facility] [address] [id number] [address] [place] [address], [place] [address] Dec, [facility] [address] [id number] [address] [place] [address], [place] [address] Nov, [facility] [address] [id number] [address] [place] [address], [place] [address] Nov, [facility] [address] [id number] [address] [place] [address], [place] [address] Nov, [facility] [address] [id number] [address] [place] [address], [place] [address] Nov, [facility] [address] [id number] [address] [place] [address], [place] [address] October, [facility] [address] [id number] [address] [place] [address], [place] [address] October, [facility] [address] [id number] [address] [place] [address], [place] [address] October, [facility] [address] [id number] [address] [place] [address], [place] [address] October, [facility] [address] [id number] [address] [place] [address], [place] [address] October, [facility] [address] [id number] [address] [place] [address], [place] [address] October, [facility] [address] [id number] [address] [place] [address], [place] [address] 30 Sep, 2012 [facility] [address] [id number] [address] [place] [address], [place] [address] 29 Sep, 2012 [facility] [address] [id number] [address] [place] [address], [place] [address] 27 Sep, 2012 [facility] [address] [id number] [address] [place] [address], [place] [address] 23 Sep, 2012 [facility] [address] [id number] [address] [place] [address], [place] [address] Sep, [facility] [address] [id number] [address] [place] [address], [place] [address] 16 Sep, 2012 [facility] [address] [id number] [facility] [place] [address] 12 Sep, 2012 [facility] [address] [id number] [address] [place] [address], [place] [address] Sep, [facility] [address] [id number] [address] [place] [address], [place] [address] Sep, [facility] [address] [id number] [address] [place] [address], [place] [address] Sep, [facility] [address] [id number] [address] [place] [address], [place] [address] Sep, [facility] [address] [id number] [address] [place] [address], [place] [address] Aug, [facility] [address] [id number] [address] [place] [address], [place] [address] Aug, [facility] [address] [id number] [address] [place] [address], [place] [address] 25 Aug, 2012 [facility] [address] [id number] [address] [place] [address], [place] [address] 21 Aug, 2012 [facility] [address] [id number] [address] [place] [address], [place] [address] 19 Aug, 2012 [facility] [address] [id number] [address] [place] [address], [place] [address] 18 Aug, 2012 [facility] [address] [id number] [address] [place] [address], [place] [address] 17 Aug, 2012 [facility] [address] [id number] [address] [place] [address], [place] [address] 15 Aug, 2012 [facility] [address] [id number] [address] [place] [address], [place] [address] 15 Aug, 2012 [facility] [address] [id number] [address] [place] [address], [place] [address] 11 Aug, 2012 [facility] [address] [id number] [address] [place] [address], [place] [address] Aug, [facility] [address] [id number] [address] [place] [address], [place] [address] Aug, [facility] [address] [id number] [address] [place] [address], [place] [address] Jul, [facility] [address] [id number] [address] [place] [address], [place] [address] Jul, [facility] [address] [id number] [address] [place] [address], [place] [address] Jul, [facility] [address] [id number] [address] [place] [address], [place] [address] Jul, [facility] [address] [id number] [address] [place] [address], [place] [address] Jul, [facility] [address] [id number] [address] [place] [address], [place] [address] Jul, [facility] [address] [id number] [address] [place] [address], [place] [address] Jul, [facility] [address] [id number] [address] [place] [address], [place] [address] Jul, [facility] [address] [id number] [address] [place] [address], [place] [address] Jul, [facility] [address] [id number] [address] [place] [address] Jul, [facility] [address] [id number] [address] [place] [address] May, [facility] [address] [id number] [place] [id number] May, [facility] [address] [id number] [address] [place] [address] May, [facility] [address] [id number] [address] [place] [address], [place] [address] 14 May, 2012 [facility] [address] [id number] [address] [place] [address], [place] [address] May, [facility] [address] [id number] [address] [place] [address], [place] [address] Apr, [facility] [address] [id number] [place] [id number] Apr, [facility] [address] [facility] [id number] [address] [place] [address], [place] [address] Apr, [facility] [address] [facility] [id number] [address] [place] [address], [place] [address] Mar, [facility] [address] [id number] [place] [id number] Mar, [facility] [address] [facility] [id number] [address] [place] [address], [place] [address] Mar, [facility] [address] [id number] [id number] Feb, [facility] [address] [facility] [id number] [address] [place] [address], [place] [address] Feb, [facility] [address] [facility] [id number] [address] [place] [address], [place] [address] Feb, [facility] [address] [id number] [place] [id number] Feb, [facility] [address] [id number] [place] [id number] Feb, [facility] [address] [id number] [place] [id number] Jan, [facility] [address] [id number] [address] [place] [address], [place] [address] Jan, [facility] [address] [id number] [place] [id number] Jan, [facility] [address] [id number] [place] [id number] Jan, [facility] [address] [id number] [place] [id number] Jan, [facility] [address] [id number] [address] [place] [address], [place] [address] Jan, [facility] [address] [facility] [id number] [address] [place] [address], [place] [address] Jan, [facility] [address] [facility] [id number] [address] [place] [address], [place] [address] Aug, [facility] [address] [facility] [id number] [place] [id number] Aug, [facility] [address] [facility] [id number] [address] [place] [address], [place] [address] Jul, [facility] [address] [facility] [id number] [address] [place] [address], [place] [address] Jul, [facility] [address] [facility] [id number] [address] [place] [address], [place] [address] Jul, [facility] [address] [facility] [id number] [place] [id number] Jul, [facility] [address] [facility] [id number] [address] [place] [address], [place] [address] Jul, [facility] [address] [facility] [id number] [place] [id number] Jul, [facility] [address] [facility] [id number] [address] [place] [address], [place] [address] Jul, [facility] [address] [id number] [place] [id number] Jul, [facility] [address] [id number] [place] [id number] Jul, [facility] [address] [id number] [place] [id number] Jul, [facility] [address] [facility] [id number] [address] [place] [address], [place] [address] May, [facility] [address] [facility] [id number] [address] [place] [address], [place] [address] May, [facility] [address] [id number] [address] [place] [id number] May, [facility] [address] [id number] [address] [place] [phone] Apr, [facility] [address] [id number] [address] [place] [id number] Jan, [facility] [address] [id number] [address] [place] [id number] Jan, [facility] [address] [id number] [address] [place] [id number] Dec, [facility] [address] [id number] [address] [place] [phone] Dec, [facility] [address] [id number] [address] [place] [id number] 16 May, 2009 [facility] [address] [id number] [address] [place] [id number] Mar, [facility] [address] [id number] [address] [place] [id number] Mar, [facility] [address] [id number] [address] [place] [id number] Jan, IMMUNIZATIONS No Known Immunizations SOCIAL HISTORY [...]
--- OUTSIDE RECORDS SUMMARY | 2020-01-28 12:28 | XMS REPORT ---
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 Active 293809001 Problem History of venous thromboembolism V12.51 Active 493696340 Problem Cellulitis of unspecified part of limb L03.119 Active 287319206 Problem Gastroesophageal reflux disease without esophagitis K21.9 Active 970238196 Problem History of pulmonary embolism Z86.711 Active 117944940 Problem Pseudotumor cerebri G93.2 Active 20485310 Problem History of DVT (deep vein thrombosis) Z86.718 Active 666938974 ALLERGIES No Information ENCOUNTERS Encounter Location Date Diagnosis [place] [id number] [facility] [id number] [address] [place] [phone] Apr, retirement (current) use of 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 Z79.01 [facility] [address] [facility] [id number] [address] [place] [phone] Apr, retirement 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.01 [facility] [address] [facility] [id number] [address] [place] [address] Apr, Cellulitis of unspecified pa rt of limb L03.119 ; Allergic contact dermatitis due to adhesives L23.1 and Chronic pain syndrome G89.4 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 [address] [place] [id number] [address] [place] [phone] 16 Apr, 2015 [facility] [address] [place] [id number] [place] [phone] Apr, [place] [address] [place] [id number] [place] [phone] Mar, [place] [address] [address] Mar, [place] [address] [address] Mar, Sore throat J02.9 ; Gastroes ophageal reflux disease without esophagitis K21.9 ; Pseudotumor cerebri G93.2 ; Chronic pain syndrome G89.4 ; Choriocarcinoma C58 ; History of pulmonary embolism Z86.711 ; History of DVT (deep vein thrombosis) Z86.718 ; Anxiety F41.9 and Tachycardia R00.0 [place] [address] [address] Feb, Anxiety 300.00 and Chronic p ain 338.29 [place] [address] [place] [id number] [address] [place] [address] Feb, [place] [address] [place] [id number] [address] [place] [phone] Feb, [place] [address] [address] Jan, 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 [address] [place] [id number] [address] [place] [address] Jan, Anxiety 300.00 and Chronic p ain 338.29 [facility] [address] [place] [id number] [place] [address] Jan, [facility] [address] [address] Jan, [facility] [address] [address] Jan, [place] [address] [address] Dec, Weakness 780.79 [place] [address] [address] Dec, retirement 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 therapy V58.61 [place] [address] [address] Dec, Palpitations 785.1 ; Tremor 781.0 ; Weakness 780.79 ; retirement 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 therapy V58.61 and Yeast vaginitis 112.1 [place] [address] [place] [id number] [address] [place] [address] Dec, [place] [address] [address] Dec, Cervicalgia 723.1 ; Tachycar yoseph 785.0 ; Pseudotumor cerebri 348.2 and History of venous thromboembolism V12.51 [place] [address] [address] Nov, [place] [address] [address] Nov, [place] [address] [address] Nov, Tachycardia 785.0 ; Pseudotu mor cerebri 348.2 ; Anxiety 300.00 and History of venous thromboembolism V12.51 [facility] [address] [id number] [address] [place] [phone] Nov, [facility] [address] [id number] [address] [place] [phone] 18 Nov, 2014 [facility] [address] [id number] [address] [place] [phone] Nov, [facility] [address] [id number] [address] [place] [phone] Nov, [facility] [address] [facility] [id number] [address] [place] [phone] Nov, [facility] [address] [facility] [id number] [address] [place] [phone] Nov, [facility] [address] [facility] [id number] [address] [place] [phone] Nov, [facility] [address] [facility] [id number] [address] [place] [phone] October, [facility] [address] [facility] [id number] [address] [place] [phone] October, [facility] [address] [place] [id number] [address] [place] [phone] October, Pain in thoracic spine 724.1 and Tachycardia 785.0 [facility] [address] [id number] [address] [place] [phone] October, [facility] [address] [id number] [address] [place] [phone] October, [facility] [address] [facility] [id number] [address] [place] [phone] 14 Sep, 2014 [facility] [address] [facility] [id number] [address] [place] [phone] Sep, [facility] [address] [id number] [facility] [place] [address] Aug, [facility] [address] [id number] [address] [place] [address], [place] [address] Aug, [facility] [address] [id number] [address] [place] [address], [place] [address] Aug, [facility] [address] [id number] [address] [place] [address], [place] [address] Aug, [facility] [address] [id number] [address] [place] [address], [place] [address] Aug, [facility] [address] [id number] [address] [place] [address], [place] [address] Aug, [facility] [address] [id number] [address] [place] [address], [place] [address] Aug, [facility] [address] [id number] [address] [place] [address], [place] [address] Aug, [facility] [address] [id number] [address] [place] [address], [place] [address] Aug, [facility] [address] [id number] [address] [place] [address], [place] [address] Aug, [facility] [address] [id number] [address] [place] [address], [place] [address] Aug, [facility] [address] [id number] [address] [place] [address], [place] [address] Aug, 2014 [facility] [address] [id number] [address] [place] [address], [place] [address] Jul, [facility] [address] [id number] [address] [place] [address], [place] [address] Jul, [facility] [address] [id number] [address] [place] [address], [place] [address] Jul, [facility] [address] [id number] [address] [place] [address], [place] [address] Jul, [facility] [address] [id number] [address] [place] [address], [place] [address] 23 Jul, 2014 [facility] [address] [id number] [address] [place] [address], [place] [address] 23 Jul, 2014 [facility] [address] [id number] [address] [place] [address], [place] [address] 23 Jul, 2014 [facility] [address] [id number] [address] [place] [address], [place] [address] 23 Jul, 2014 [facility] [address] [id number] [address] [place] [address], [place] [address] 20 Jul, 2014 [facility] [address] [id number] [address] [place] [address], [place] [address] 20 Jul, 2014 [facility] [address] [id number] [address] [place] [address], [place] [address] 19 Jul, 2014 [facility] [address] [id number] [address] [place] [address], [place] [address] 19 Jul, 2014 [facility] [address] [id number] [address] [place] [address], [place] [address] 17 Jul, 2014 [facility] [address] [id number] [address] [place] [address], [place] [address] 17 Jul, 2014 [facility] [address] [id number] [address] [place] [address], [place] [address] 16 Jul, 2014 [facility] [address] [id number] [address] [place] [address], [place] [address] 16 Jul, 2014 [facility] [address] [id number] [address] [place] [address], [place] [address] 16 Jul, 2014 [facility] [address] [id number] [address] [place] [address] 16 Jul, 2014 [facility] [address] [id number] [address] [place] [phone] 13 Jul, 2014 [facility] [address] [id number] [address] [place] [address], [place] [address] Jul, [facility] [address] [id number] [address] [place] [address], [place] [address] Jul, [facility] [address] [id number] [address] [place] [address], [place] [address] Jul, 2014 [facility] [address] [id number] [address] [place] [address], [place] [address] Jul, 2014 [facility] [address] [id number] [address] [place] [address], [place] [address] Jul, [facility] [address] [id number] [address] [place] [address], [place] [address] Jul, [facility] [address] [id number] [address] [place] [address], [place] [address] Jul, [facility] [address] [id number] [address] [place] [address], [place] [address] Jul, [facility] [address] [id number] [address] [place] [address], [place] [address] Jul, [facility] [address] [id number] [address] [place] [address], [place] [address] Jul, [facility] [address] [id number] [address] [place] [address], [place] [address] Jul, [facility] [address] [id number] [address] [place] [address], [place] [address] Jun, [facility] [address] [id number] [address] [place] [address], [place] [address] Jun, [facility] [address] [id number] [address] [place] [address], [place] [address] Jun, [facility] [address] [id number] [address] [place] [address], [place] [address] Jun, [facility] [address] [id number] [address] [place] [address], [place] [address] Jun, [facility] [address] [id number] [address] [place] [address], [place] [address] Jun, [facility] [address] [id number] [address] [place] [address], [place] [address] Jun, [facility] [address] [id number] [address] [place] [address], [place] [address] Jun, [facility] [address] [id number] [address] [place] [address], [place] [address] Jun, [facility] [address] [id number] [address] [place] [address], [place] [address] Jun, [facility] [address] [id number] [address] [place] [address], [place] [address] Jun, [facility] [address] [id number] [address] [place] [address], [place] [address] Jun, [facility] [address] [id number] [address] [place] [address], [place] [address] Jun, [facility] [address] [id number] [address] [place] [address], [place] [address] Jun, [facility] [address] [id number] [address] [place] [address], [place] [address] Jun, [facility] [address] [id number] [address] [place] [address], [place] [address] Jun, [facility] [address] [id number] [address] [place] [address], [place] [address] Jun, [facility] [address] [id number] [address] [place] [address], [place] [address] Jun, [facility] [address] [id number] [address] [place] [address], [place] [address] Jun, [facility] [address] [id number] [address] [place] [address], [place] [address] Jun, [facility] [address] [id number] [address] [place] [address], [place] [address] May, [facility] [address] [id number] [address] [place] [address], [place] [address] May, [facility] [address] [id number] [address] [place] [address], [place] [address] May, [facility] [address] [id number] [address] [place] [address], [place] [address] May, [facility] [address] [id number] [address] [place] [address], [place] [address] May, [facility] [address] [id number] [address] [place] [address], [place] [address] May, [facility] [address] [id number] [address] [place] [address], [place] [address] May, [facility] [address] [id number] [address] [place] [address], [place] [address] May, [facility] [address] [id number] [address] [place] [address], [place] [address] May, [facility] [address] [id number] [address] [place] [address], [place] [address] May, [facility] [address] [id number] [address] [place] [address], [place] [address] May, [facility] [address] [id number] [address] [place] [address], [place] [address] 18 May, 2014 [facility] [address] [id number] [address] [place] [address], [place] [address] 18 May, 2014 [facility] [address] [id number] [address] [place] [address], [place] [address] 17 May, 2014 [facility] [address] [id number] [address] [place] [address], [place] [address] 16 May, 2014 [facility] [address] [id number] [address] [place] [address], [place] [address] 16 May, 2014 [facility] [address] [id number] [address] [place] [address], [place] [address] 15 May, 2014 [facility] [address] [id number] [address] [place] [address], [place] [address] 15 May, 2014 [facility] [address] [id number] [address] [place] [address], [place] [address] May, [facility] [address] [id number] [address] [place] [address], [place] [address] May, [facility] [address] [id number] [address] [place] [address], [place] [address] May, [facility] [address] [id number] [address] [place] [address], [place] [address] May, [facility] [address] [id number] [address] [place] [address], [place] [address] May, [facility] [address] [id number] [address] [place] [address], [place] [address] May, [facility] [address] [id number] [address] [place] [address], [place] [address] May, [facility] [address] [id number] [address] [place] [address], [place] [address] May, [facility] [address] [id number] [address] [place] [address], [place] [address] May, [facility] [address] [id number] [address] [place] [address], [place] [address] May, [facility] [address] [id number] [address] [place] [address], [place] [address] May, [facility] [address] [id number] [address] [place] [address], [place] [address] May, [facility] [address] [id number] [address] [place] [address], [place] [address] May, [facility] [address] [id number] [address] [place] [address], [place] [address] May, [facility] [address] [id number] [address] [place] [address], [place] [address] May, [facility] [address] [id number] [address] [place] [address], [place] [address] May, [facility] [address] [id number] [address] [place] [address], [place] [address] Apr, [facility] [address] [id number] [address] [place] [address], [place] [address] Apr, [facility] [address] [id number] [address] [place] [address], [place] [address] Apr, [facility] [address] [id number] [address] [place] [address], [place] [address] Apr, [facility] [address] [id number] [address] [place] [address], [place] [address] Apr, [facility] [address] [id number] [address] [place] [address], [place] [address] Apr, [facility] [address] [id number] [address] [place] [address], [place] [address] Apr, [facility] [address] [id number] [address] [place] [address], [place] [address] Apr, [facility] [address] [id number] [address] [place] [address], [place] [address] Apr, [facility] [address] [id number] [address] [place] [address], [place] [address] Apr, [facility] [address] [id number] [address] [place] [address], [place] [address] Mar, [facility] [address] [id number] [address] [place] [address], [place] [address] Mar, [facility] [address] [id number] [address] [place] [address] [address] Mar, [facility] [address] [id number] [address] [place] [address], [place] [address] 31 Mar, 2013 [facility] [address] [id number] [address] [place] [address], [place] [address] Mar, [facility] [address] [id number] [address] [place] [address], [place] [id number] 30 Mar, 2014 [facility] [address] [id number] [address] [place] [address], [place] [address] Mar, [facility] [address] [id number] [address] [place] [address], [place] [address] Mar, [facility] [address] [id number] [address] [place] [address], [place] [address] Mar, [facility] [address] [id number] [address] [place] [address], [place] [address] Mar, [facility] [address] [id number] [address] [place] [id number] Mar, [facility] [address] [id number] [address] [place] [id number] Mar, [facility] [address] [id number] [address] [place] [id number] Mar, [facility] [address] [id number] [address] [place] [id number] Mar, 2013 [facility] [address] [id number] [address] [place] [id number] Mar, 2013 [facility] [address] [id number] [address] [place] [id number] Mar, [facility] [address] [id number] [address] [place] [id number] Mar, [facility] [address] [id number] [address] [place] [id number] Mar, 2013 [facility] [address] [id number] [address] [place] [address], [place] [address] 02 Mar, 2013 [facility] [address] [id number] [address] [place] [address], [place] [address] 02 Mar, 2013 [facility] [address] [id number] [address] [place] [address], [place] [id number] 05 Sep, 2013 [facility] [address] [id number] [address] [place] [address], [place] [address] 05 Sep, 2013 [facility] [address] [id number] [address] [place] [address], [place] [address] 04 Sep, 2013 [facility] [address] [id number] [address] [place] [address], [place] [id number] 04 Sep, 2013 [facility] [address] [id number] [address] [place] [address], [place] [address] 03 Feb, 2013 [facility] [address] [id number] [address] [place] [address], [place] [id number] 03 Feb, 2013 [facility] [address] [id number] [address] [place] [address], [place] [address] 02 Feb, 2013 [facility] [address] [id number] [address] [place] [address], [place] [address] Feb, 2013 [facility] [address] [id number] [address] [place] [address], [place] [id number] 02 Feb, 2013 [facility] [address] [id number] [address] [place] [address], [place] [address] Feb, 2013 [facility] [address] [id number] [address] [place] [address], [place] [address] Jan, [facility] [address] [id number] [address] [place] [address], [place] [address] Jan, [facility] [address] [id number] [address] [place] [address], [place] [address] Jan, [facility] [address] [id number] [address] [place] [address], [place] [address] Jan, [facility] [address] [id number] [facility] [place] [address] Jan, [facility] [address] [id number] [address] [place] [address], [place] [address] Jan, [facility] [address] [id number] [address] [place] [address], [place] [address] Jan, [facility] [address] [id number] [address] [place] [address], [place] [address] Jan, [facility] [address] [id number] [address] [place] [address], [place] [address] Jan, [facility] [address] [id number] [address] [place] [address], [place] [address] Jan, [facility] [address] [id number] [address] [place] [address], [place] [address] Jan, [facility] [address] [id number] [address] [place] [address], [place] [address] Jan, [facility] [address] [id number] [address] [place] [address], [place] [address] Dec, [facility] [address] [id number] [address] [place] [address], [place] [address] Dec, [facility] [address] [id number] [address] [place] [address], [place] [address] Dec, [facility] [address] [id number] [address] [place] [address], [place] [address] Dec, [facility] [facility] [address] [id number] [address] [place] [address], [place] [address] Dec, [facility] [address] [id number] [address] [place] [address], [place] [address] Dec, [facility] [address] [id number] [address] [place] [address], [place] [address] Dec, [facility] [address] [id number] [address] [place] [address], [place] [address] Dec, [facility] [address] [id number] [facility] [place] [address] Dec, [facility] [address] [id number] [address] [place] [address], [place] [address] Dec, [facility] [address] [id number] [address] [place] [address], [place] [address] Dec, [facility] [address] [id number] [address] [place] [address], [place] [address] Dec, [facility] [address] [id number] [address] [place] [address], [place] [address] Nov, [facility] [address] [id number] [address] [place] [address], [place] [address] Nov, [facility] [address] [id number] [address] [place] [address], [place] [address] Nov, [facility] [address] [id number] [address] [place] [address], [place] [address] Nov, [facility] [address] [id number] [address] [place] [address], [place] [address] Nov, [facility] [address] [id number] [address] [place] [address], [place] [address] Nov, [facility] [address] [id number] [address] [place] [address], [place] [address] Nov, [facility] [address] [id number] [address] [place] [address], [place] [address] Nov, [facility] [address] [id number] [address] [place] [address], [place] [address] Nov, [facility] [address] [id number] [address] [place] [address], [place] [address] Nov, [facility] [address] [id number] [address] [place] [address], [place] [address] Nov, [facility] [address] [id number] [facility] [place] [address] Nov, [facility] [address] [id number] [address] [place] [address], [place] [address] Nov, [facility] [address] [id number] [address] [place] [address], [place] [address] Nov, [facility] [address] [id number] [address] [place] [address], [place] [address] October, [facility] [address] [id number] [address] [place] [address], [place] [address] October, [facility] [address] [id number] [address] [place] [address], [place] [address] October, [facility] [address] [id number] [address] [place] [address], [place] [address] October, [facility] [address] [id number] [address] [place] [address], [place] [address] October, [facility] [address] [id number] [address] [place] [address], [place] [address] October, [facility] [address] [id number] [address] [place] [address], [place] [address] October, [facility] [address] [id number] [address] [place] [address], [place] [address] October, [facility] [address] [id number] [address] [place] [address], [place] [address] October, [facility] [address] [id number] [address] [place] [address], [place] [address] October, [facility] [address] [id number] [address] [place] [address], [place] [address] October, [facility] [address] [id number] [address] [place] [address], [place] [address] October, [facility] [address] [id number] [address] [place] [address], [place] [address] Sep, [facility] [address] [id number] [facility] [place] [address] Sep, [facility] [address] [id number] [address] [place] [address], [place] [address] Sep, [facility] [address] [id number] [facility] [place] [address] Sep, [facility] [address] [id number] [address] [place] [address], [place] [address] Sep, [facility] [address] [id number] [address] [place] [address], [place] [address] Sep, [facility] [address] [id number] [address] [place] [address], [place] [address] Aug, [facility] [address] [id number] [address] [place] [address], [place] [address] Aug, [facility] [address] [id number] [address] [place] [address], [place] [address] Aug, [facility] [address] [id number] [address] [place] [address], [place] [address] Aug, [facility] [address] [id number] [address] [place] [address], [place] [address] Aug, [facility] [address] [id number] [address] [place] [address], [place] [address] Aug, [facility] [address] [id number] [address] [place] [address], [place] [address] Jul, [facility] [address] [id number] [address] [place] [address], [place] [address] Jul, [facility] [address] [id number] [address] [place] [address], [place] [address] Jul, [facility] [address] [id number] [address] [place] [address], [place] [address] Jul, [facility] [address] [id number] [address] [place] [address], [place] [address] 13 Jul, 2013 [facility] [address] [id number] [address] [place] [address], [place] [address] Jul, [facility] [address] [id number] [address] [place] [address], [place] [address] Jul, [facility] [address] [id number] [address] [place] [address], [place] [address] Jul, [facility] [address] [id number] [address] [place] [address], [place] [address] Jul, [facility] [address] [id number] [address] [place] [address], [place] [address] Jul, [facility] [address] [id number] [address] [place] [address], [place] [address] Jun, [facility] [address] [id number] [address] [place] [address], [place] [address] Jun, [facility] [address] [id number] [address] [place] [address], [place] [address] Jun, [facility] [address] [id number] [address] [place] [address], [place] [address] Jun, [facility] [address] [id number] [address] [place] [address], [place] [address] Jun, [facility] [address] [id number] [address] [place] [address], [place] [address] Jun, [facility] [address] [id number] [address] [place] [address], [place] [address] Jun, [facility] [address] [id number] [address] [place] [address], [place] [address] Jun, [facility] [address] [id number] [address] [place] [address], [place] [address] May, [facility] [address] [id number] [address] [place] [address], [place] [address] May, [facility] [address] [id number] [address] [place] [address], [place] [address] May, [facility] [address] [id number] [address] [place] [address], [place] [address] May, [facility] [address] [id number] [address] [place] [address], [place] [address] May, [facility] [address] [id number] [address] [place] [address], [place] [address] May, [facility] [address] [id number] [address] [place] [address], [place] [address] May, [facility] [address] [id number] [address] [place] [address], [place] [address] May, [facility] [address] [id number] [address] [place] [address], [place] [address] Apr, [facility] [address] [id number] [address] [place] [address] Apr, [facility] [address] [id number] [address] [place] [address], [place] [address] Apr, [facility] [address] [id number] [address] [place] [address] Apr, [facility] [address] [id number] [address] [place] [address] Apr, [facility] [address] [id number] [address] [place] [address] Apr, [facility] [address] [id number] [address] [place] [address], [place] [address] Mar, [facility] [address] [id number] [address] [place] [address] Mar, [facility] [address] [id number] [address] [place] [address], [place] [address] Mar, [facility] [address] [id number] [address] [place] [address], [place] [address] Mar, [facility] [address] [id number] [address] [place] [address], [place] [address] Mar, [facility] [address] [id number] [address] [place] [address], [place] [address] Mar, [facility] [address] [id number] [address] [place] [address], [place] [address] Mar, [facility] [address] [id number] [address] [place] [address], [place] [address] 30 Feb, 2012 [facility] [address] [id number] [address] [place] [address], [place] [address] 30 Feb, 2013 [facility] [address] [id number] [address] [place] [address], [place] [address] 27 Feb, 2013 [facility] [address] [id number] [address] [place] [address], [place] [address] Feb, 2012 [facility] [address] [id number] [address] [place] [address], [place] [address] Feb, [facility] [address] [id number] [address] [place] [address], [place] [address] Feb, [facility] [address] [id number] [address] [place] [address], [place] [address] Jan, [facility] [address] [id number] [address] [place] [address], [place] [address] Jan, [facility] [address] [id number] [address] [place] [address], [place] [address] Jan, [facility] [address] [id number] [address] [place] [address], [place] [address] Jan, [facility] [address] [id number] [address] [place] [address], [place] [address] Jan, [facility] [address] [id number] [address] [place] [address], [place] [address] Jan, [facility] [address] [id number] [address] [place] [address], [place] [address] Jan, [facility] [address] [id number] [address] [place] [address], [place] [address] Jan, [facility] [address] [id number] [address] [place] [address], [place] [address] Jan, [facility] [address] [id number] [address] [place] [address], [place] [address] Dec, [facility] [address] [id number] [address] [place] [address], [place] [address] Dec, [facility] [address] [id number] [address] [place] [address], [place] [address] Dec, [facility] [address] [id number] [address] [place] [address], [place] [address] Dec, [facility] [address] [id number] [address] [place] [address], [place] [address] Dec, [facility] [address] [id number] [address] [place] [address], [place] [address] Dec, [facility] [address] [id number] [address] [place] [address], [place] [address] Dec, [facility] [address] [id number] [address] [place] [address], [place] [address] Dec, [facility] [address] [id number] [address] [place] [address], [place] [address] Dec, [facility] [address] [id number] [address] [place] [address], [place] [address] Dec, [facility] [address] [id number] [address] [place] [address], [place] [address] Dec, [facility] [address] [id number] [address] [place] [address], [place] [address] Dec, [facility] [address] [id number] [address] [place] [address], [place] [address] Dec, [facility] [address] [id number] [address] [place] [address], [place] [address] Nov, [facility] [address] [id number] [address] [place] [address], [place] [address] Nov, [facility] [address] [id number] [address] [place] [address], [place] [address] Nov, [facility] [address] [id number] [address] [place] [address], [place] [address] Nov, [facility] [address] [id number] [address] [place] [address], [place] [address] October, [facility] [address] [id number] [address] [place] [address], [place] [address] October, [facility] [address] [id number] [address] [place] [address], [place] [address] October, [facility] [address] [id number] [address] [place] [address], [place] [address] October, [facility] [address] [id number] [address] [place] [address], [place] [address] October, [facility] [address] [id number] [address] [place] [address], [place] [address] October, [facility] [address] [id number] [address] [place] [address], [place] [address] Sep, [facility] [address] [id number] [address] [place] [address], [place] [address] Sep, [facility] [address] [id number] [address] [place] [address], [place] [address] Sep, [facility] [address] [id number] [address] [place] [address], [place] [address] Sep, [facility] [address] [id number] [address] [place] [address], [place] [address] Sep, [facility] [address] [id number] [facility] [place] [address] 16 Sep, 2012 [facility] [address] [id number] [address] [place] [address], [place] [address] 12 Sep, 2012 [facility] [address] [id number] [address] [place] [address], [place] [address] Sep, [facility] [address] [id number] [address] [place] [address], [place] [address] Sep, [facility] [address] [id number] [address] [place] [address], [place] [address] Sep, [facility] [address] [id number] [address] [place] [address], [place] [address] Sep, [facility] [address] [id number] [address] [place] [address], [place] [address] Aug, [facility] [address] [id number] [address] [place] [address], [place] [address] 25 Aug, 2012 [facility] [address] [id number] [address] [place] [address], [place] [address] 25 Aug, 2012 [facility] [address] [id number] [address] [place] [address], [place] [address] 21 Aug, 2012 [facility] [address] [id number] [address] [place] [address], [place] [address] 19 Aug, 2012 [facility] [address] [id number] [address] [place] [address], [place] [address] 18 Aug, 2012 [facility] [address] [id number] [address] [place] [address], [place] [address] 17 Aug, 2012 [facility] [address] [id number] [address] [place] [address], [place] [address] 15 Aug, 2012 [facility] [address] [id number] [address] [place] [address], [place] [address] 15 Aug, 2012 [facility] [address] [id number] [address] [place] [address], [place] [address] Aug, [facility] [address] [id number] [address] [place] [address], [place] [address] Aug, [facility] [address] [id number] [address] [place] [address], [place] [address] Aug, [facility] [address] [id number] [address] [place] [address], [place] [address] Jul, [facility] [address] [id number] [address] [place] [address], [place] [address] Jul, [facility] [address] [id number] [address] [place] [address], [place] [address] Jul, [facility] [address] [id number] [address] [place] [address], [place] [address] Jul, [facility] [address] [id number] [address] [place] [address], [place] [address] Jul, [facility] [address] [id number] [address] [place] [address], [place] [address] Jul, [facility] [address] [id number] [address] [place] [address], [place] [address] Jul, [facility] [address] [id number] [address] [place] [address], [place] [address] Jul, [facility] [address] [id number] [address] [place] [address], [place] [address] Jul, [facility] [address] [id number] [address] [place] [address], [place] [address] Jul, [facility] [address] [id number] [address] [place] [address], [place] [address] May, [facility] [address] [id number] [id number] May, [facility] [address] [id number] [address] [place] [address], [place] [id number] May, [facility] [address] [id number] [address] [place] [phone] May, [facility] [address] [facility] [id number] [address] [place] [id number] May, [facility] [address] [facility] [id number] [address] [place] [phone] Apr, [facility] [address] [id number] [place] [id number] Apr, [facility] [address] [facility] [id number] [address] [place] [phone] Apr, [facility] [address] [facility] [id number] [address] [place] [phone] Mar, [facility] [address] [id number] [place] [id number] Mar, [facility] [address] [facility] [id number] [address] [place] [phone] Mar, [facility] [address] [id number] [place] [id number] Feb, [facility] [address] [facility] [id number] [address] [place] [phone] Feb, [facility] [address] [facility] [id number] [address] [place] [phone] Feb, [facility] [address] [id number] [place] [id number] Feb, [facility] [address] [id number] [place] [id number] Feb, [facility] [address] [id number] [place] [id number] Jan, [facility] [address] [id number] [address] [place] [address], [place] [id number] Jan, [facility] [address] [id number] [place] [id number] Jan, [facility] [address] [id number] [place] [id number] Jan, [facility] [address] [id number] [place] [id number] Jan, [facility] [address] [facility] [id number] [address] [place] [address], [place] [id number] Jan, [facility] [address] [facility] [id number] [address] [place] [address], [place] [id number] Jan, [facility] [address] [facility] [id number] [address] [place] [address], [place] [id number] Aug, [facility] [address] [id number] [place] [id number] Aug, [facility] [address] [facility] [id number] [address] [place] [address], [place] [id number] Jul, [facility] [address] [facility] [id number] [address] [place] [address], [place] [id number] Jul, [facility] [address] [facility] [id number] [address] [place] [address], [place] [id number] Jul, [facility] [address] [id number] [place] [id number] Jul, [facility] [address] [facility] [id number] [address] [place] [address], [place] [id number] Jul, [facility] [address] [id number] [place] [id number] Jul, [facility] [address] [facility] [id number] [address] [place] [address], [place] [id number] Jul, [facility] [address] [id number] [place] [id number] Jul, [facility] [place] [address] [id number] [place] [id number] Jul, [facility] [address] [id number] [place] [id number] Jul, [facility] [address] [facility] [id number] [address] [place] [address], [place] [id number] May, [facility] [address] [id number] [address] [place] [phone] May, [facility] [address] [id number] [address] [place] [phone] May, [facility] [address] [id number] [address] [place] [phone] Apr, [facility] [address] [id number] [address] [place] [phone] Jan, [facility] [address] [id number] [address] [place] [phone] Jan, [facility] [address] [id number] [address] [place] [phone] Dec, [facility] [address] [id number] [address] [place] [phone] Dec, [facility] [address] [id number] [address] [place] [phone] May, [facility] [address] [id number] [address] [place] [phone] Mar, [facility] [address] [id number] [address] [place] [id number] Mar, [facility] [address] [id number] [address] [place] [id number] Jan, IMMUNIZATIONS No Known Immunizations SOCIAL HISTORY Never Assessed REASON FOR VISIT PLAN OF CARE VITAL SIGNS MEDICATIONS Unknown Medications RESULTS No Results PROCEDURES Procedure Date Ordered Result Body Site URINE CULTURE/COLONY COUNT Feb 22, 2014 PROTHROMBIN TIME Feb 22, 2014 URINALYSIS, AUTO, W/O SCOPE Feb 22, 2014 INSTRUCTIONS MEDICATIONS ADMINISTERED No Known [...]
--- OUTSIDE RECORDS SUMMARY | 2020-01-28 12:28 | XMS REPORT ---
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 Active 808781390 Problem History of venous thromboembolism V12.51 Active 300431101 Problem Cellulitis of unspecified part of limb L03.119 Active 706717341 Problem Gastroesophageal reflux disease without esophagitis K21.9 Active 290273439 Problem History of pulmonary embolism Z86.711 Active 989080018 Problem Pseudotumor cerebri G93.2 Active 78433929 Problem History of DVT (deep vein thrombosis) Z86.718 Active 952912767 ALLERGIES No Information ENCOUNTERS Encounter Location Date Diagnosis [place] [id number] [facility] [id number] [address] [place] [address] Apr, correction (current) use of 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 Z79.01 [facility] [address] [facility] [id number] [address] [place] [address] Apr, correction 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.01 [facility] [address] [facility] [id number] [address] [place] [address] Apr, Cellulitis of unspecified pa rt of limb L03.119 ; Allergic contact dermatitis due to adhesives L23.1 and Chronic pain syndrome G89.4 [facility] [address] [facility] [id number] [address] [place] [address] Apr, [place] [address] [place] [id number] [address] [place] [address] Apr, 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.01 ; Cellulitis of unspecified part of limb L03.119 ; Chronic pain syndrome G89.4 and Anxiety F41.9 [facility] [address] [place] [id number] [address] [place] [address] 16 Apr, 2015 [facility] [address] [place] [id number] [place] [address] Apr, [place] [address] [place] [id number] [place] [address] Mar, [place] [address] [address] Mar, [place] [address] [address] Mar, Sore throat J02.9 ; Gastroes ophageal reflux disease without esophagitis K21.9 ; Pseudotumor cerebri G93.2 ; Chronic pain syndrome G89.4 ; Choriocarcinoma C58 ; History of pulmonary embolism Z86.711 ; History of DVT (deep vein thrombosis) Z86.718 ; Anxiety F41.9 and Tachycardia R00.0 [place] [address] [address] Feb, Anxiety 300.00 and Chronic p ain 338.29 [place] [address] [place] [id number] [address] [place] [address] Feb, [place] [address] [place] [id number] [address] [place] [address] Feb, [place] [address] [address] Jan, 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 therapy V58.61 and Dysuria 788.1 [place] [address] [place] [id number] [place] [address] Jan, Dysuria 788.1 [facility] [address] [place] [id number] [address] [place] [address] Jan, Anxiety 300.00 and Chronic p ain 338.29 [facility] [address] [place] [id number] [place] [address] Jan, [facility] [address] [address] Jan, [facility] [address] [address] Jan, [place] [address] [address] Dec, Weakness 780.79 [place] [address] [address] Dec, correction 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 therapy V58.61 [place] [address] [address] Dec, Palpitations 785.1 ; Tremor 781.0 ; Weakness 780.79 ; correction 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 therapy V58.61 and Yeast vaginitis 112.1 [place] [address] [place] [id number] [address] [place] [address] Dec, [place] [address] [address] Dec, Cervicalgia 723.1 ; Tachycar yoseph 785.0 ; Pseudotumor cerebri 348.2 and History of venous thromboembolism V12.51 [place] [address] [address] Nov, [place] [address] [address] Nov, [place] [address] [address] Nov, Tachycardia 785.0 ; Pseudotu mor cerebri 348.2 ; Anxiety 300.00 and History of venous thromboembolism V12.51 [facility] [address] [id number] [address] [place] [address] Nov, [facility] [address] [id number] [address] [place] [address] 18 Nov, 2014 [facility] [address] [id number] [address] [place] [address] Nov, [facility] [address] [id number] [address] [place] [address] Nov, [facility] [address] [facility] [id number] [address] [place] [address] Nov, [facility] [address] [facility] [id number] [address] [place] [address] Nov, [facility] [address] [facility] [id number] [address] [place] [address] Nov, [facility] [address] [facility] [id number] [address] [place] [address] October, [facility] [address] [facility] [id number] [address] [place] [address] October, [facility] [address] [place] [id number] [address] [place] [address] October, Pain in thoracic spine 724.1 and Tachycardia 785.0 [facility] [address] [id number] [address] [place] [address] October, [facility] [address] [id number] [address] [place] [address] October, [facility] [address] [facility] [id number] [address] [place] [address] 14 Sep, 2014 [facility] [address] [facility] [id number] [address] [place] [address] Sep, [facility] [address] [id number] [facility] [place] [address] Aug, [facility] [address] [id number] [address] [place] [address], [place] [address] Aug, [facility] [address] [id number] [address] [place] [address], [place] [address] Aug, [facility] [address] [id number] [address] [place] [address], [place] [address] Aug, [facility] [address] [id number] [address] [place] [address], [place] [address] Aug, [facility] [address] [id number] [address] [place] [address], [place] [address] Aug, [facility] [address] [id number] [address] [place] [address], [place] [address] Aug, [facility] [address] [id number] [address] [place] [address], [place] [address] Aug, [facility] [address] [id number] [address] [place] [address], [place] [address] Aug, [facility] [address] [id number] [address] [place] [address], [place] [address] Aug, [facility] [address] [id number] [address] [place] [address], [place] [address] Aug, [facility] [address] [id number] [address] [place] [address], [place] [address] Aug, 2014 [facility] [address] [id number] [address] [place] [address], [place] [address] Jul, [facility] [address] [id number] [address] [place] [address], [place] [address] Jul, [facility] [address] [id number] [address] [place] [address], [place] [address] Jul, [facility] [address] [id number] [address] [place] [address], [place] [address] Jul, [facility] [address] [id number] [address] [place] [address], [place] [address] 23 Jul, 2014 [facility] [address] [id number] [address] [place] [address], [place] [address] 23 Jul, 2014 [facility] [address] [id number] [address] [place] [address], [place] [address] 23 Jul, 2014 [facility] [address] [id number] [address] [place] [address], [place] [address] 23 Jul, 2014 [facility] [address] [id number] [address] [place] [address], [place] [address] 20 Jul, 2014 [facility] [address] [id number] [address] [place] [address], [place] [address] 20 Jul, 2014 [facility] [address] [id number] [address] [place] [address], [place] [address] 19 Jul, 2014 [facility] [address] [id number] [address] [place] [address], [place] [address] 19 Jul, 2014 [facility] [address] [id number] [address] [place] [address], [place] [address] 17 Jul, 2014 [facility] [address] [id number] [address] [place] [address], [place] [address] 17 Jul, 2014 [facility] [address] [id number] [address] [place] [address], [place] [address] 16 Jul, 2014 [facility] [address] [id number] [address] [place] [address], [place] [address] 16 Jul, 2014 [facility] [address] [id number] [address] [place] [address], [place] [address] 16 Jul, 2014 [facility] [address] [id number] [address] [place] [address] 16 Jul, 2014 [facility] [address] [id number] [address] [place] [address] 13 Jul, 2014 [facility] [address] [id number] [address] [place] [address], [place] [address] Jul, [facility] [address] [id number] [address] [place] [address], [place] [address] Jul, [facility] [address] [id number] [address] [place] [address], [place] [address] Jul, 2014 [facility] [address] [id number] [address] [place] [address], [place] [address] Jul, 2014 [facility] [address] [id number] [address] [place] [address], [place] [address] Jul, [facility] [address] [id number] [address] [place] [address], [place] [address] Jul, [facility] [address] [id number] [address] [place] [address], [place] [address] Jul, [facility] [address] [id number] [address] [place] [address], [place] [address] Jul, [facility] [address] [id number] [address] [place] [address], [place] [address] Jul, [facility] [address] [id number] [address] [place] [address], [place] [address] Jul, [facility] [address] [id number] [address] [place] [address], [place] [address] Jul, [facility] [address] [id number] [address] [place] [address], [place] [address] Jun, [facility] [address] [id number] [address] [place] [address], [place] [address] Jun, [facility] [address] [id number] [address] [place] [address], [place] [address] Jun, [facility] [address] [id number] [address] [place] [address], [place] [address] Jun, [facility] [address] [id number] [address] [place] [address], [place] [address] Jun, [facility] [address] [id number] [address] [place] [address], [place] [address] Jun, [facility] [address] [id number] [address] [place] [address], [place] [address] Jun, [facility] [address] [id number] [address] [place] [address], [place] [address] Jun, [facility] [address] [id number] [address] [place] [address], [place] [address] Jun, [facility] [address] [id number] [address] [place] [address], [place] [address] Jun, [facility] [address] [id number] [address] [place] [address], [place] [address] Jun, [facility] [address] [id number] [address] [place] [address], [place] [address] Jun, [facility] [address] [id number] [address] [place] [address], [place] [address] Jun, [facility] [address] [id number] [address] [place] [address], [place] [address] Jun, [facility] [address] [id number] [address] [place] [address], [place] [address] Jun, [facility] [address] [id number] [address] [place] [address], [place] [address] Jun, [facility] [address] [id number] [address] [place] [address], [place] [address] Jun, [facility] [address] [id number] [address] [place] [address], [place] [address] Jun, [facility] [address] [id number] [address] [place] [address], [place] [address] Jun, [facility] [address] [id number] [address] [place] [address], [place] [address] Jun, [facility] [address] [id number] [address] [place] [address], [place] [address] May, [facility] [address] [id number] [address] [place] [address], [place] [address] May, [facility] [address] [id number] [address] [place] [address], [place] [address] May, [facility] [address] [id number] [address] [place] [address], [place] [address] May, [facility] [address] [id number] [address] [place] [address], [place] [address] May, [facility] [address] [id number] [address] [place] [address], [place] [address] May, [facility] [address] [id number] [address] [place] [address], [place] [address] May, [facility] [address] [id number] [address] [place] [address], [place] [address] May, [facility] [address] [id number] [address] [place] [address], [place] [address] May, [facility] [address] [id number] [address] [place] [address], [place] [address] May, [facility] [address] [id number] [address] [place] [address], [place] [address] May, [facility] [address] [id number] [address] [place] [address], [place] [address] 18 May, 2014 [facility] [address] [id number] [address] [place] [address], [place] [address] 18 May, 2014 [facility] [address] [id number] [address] [place] [address], [place] [address] 17 May, 2014 [facility] [address] [id number] [address] [place] [address], [place] [address] 16 May, 2014 [facility] [address] [id number] [address] [place] [address], [place] [address] 16 May, 2014 [facility] [address] [id number] [address] [place] [address], [place] [address] 15 May, 2014 [facility] [address] [id number] [address] [place] [address], [place] [address] 15 May, 2014 [facility] [address] [id number] [address] [place] [address], [place] [address] May, [facility] [address] [id number] [address] [place] [address], [place] [address] May, [facility] [address] [id number] [address] [place] [address], [place] [address] May, [facility] [address] [id number] [address] [place] [address], [place] [address] May, [facility] [address] [id number] [address] [place] [address], [place] [address] May, [facility] [address] [id number] [address] [place] [address], [place] [address] May, [facility] [address] [id number] [address] [place] [address], [place] [address] May, [facility] [address] [id number] [address] [place] [address], [place] [address] May, [facility] [address] [id number] [address] [place] [address], [place] [address] May, [facility] [address] [id number] [address] [place] [address], [place] [address] May, [facility] [address] [id number] [address] [place] [address], [place] [address] May, [facility] [address] [id number] [address] [place] [address], [place] [address] May, [facility] [address] [id number] [address] [place] [address], [place] [address] May, [facility] [address] [id number] [address] [place] [address], [place] [address] May, [facility] [address] [id number] [address] [place] [address], [place] [address] May, [facility] [address] [id number] [address] [place] [address], [place] [address] May, [facility] [address] [id number] [address] [place] [address], [place] [address] Apr, [facility] [address] [id number] [address] [place] [address], [place] [address] Apr, [facility] [address] [id number] [address] [place] [address], [place] [address] Apr, [facility] [address] [id number] [address] [place] [address], [place] [address] Apr, [facility] [address] [id number] [address] [place] [address], [place] [address] Apr, [facility] [address] [id number] [address] [place] [address], [place] [address] Apr, [facility] [address] [id number] [address] [place] [address], [place] [address] Apr, [facility] [address] [id number] [address] [place] [address], [place] [address] Apr, [facility] [address] [id number] [address] [place] [address], [place] [address] Apr, [facility] [address] [id number] [address] [place] [address], [place] [address] Apr, [facility] [address] [id number] [address] [place] [address], [place] [address] Mar, [facility] [address] [id number] [address] [place] [address], [place] [address] Mar, [facility] [address] [id number] [address] [place] [address] [address] Mar, [facility] [address] [id number] [address] [place] [address], [place] [address] 31 Mar, 2013 [facility] [address] [id number] [address] [place] [address], [place] [address] Mar, [facility] [address] [id number] [address] [place] [address], [place] [address] 30 Mar, 2014 [facility] [address] [id number] [address] [place] [address], [place] [address] Mar, [facility] [address] [id number] [address] [place] [address], [place] [address] Mar, [facility] [address] [id number] [address] [place] [address], [place] [address] Mar, [facility] [address] [id number] [address] [place] [address], [place] [address] Mar, [facility] [address] [id number] [address] [place] [id number] Mar, [facility] [address] [id number] [address] [place] [id number] Mar, [facility] [address] [id number] [address] [place] [id number] Mar, [facility] [address] [id number] [address] [place] [id number] Mar, 2013 [facility] [address] [id number] [address] [place] [id number] Mar, 2013 [facility] [address] [id number] [address] [place] [id number] Mar, [facility] [address] [id number] [address] [place] [id number] Mar, [facility] [address] [id number] [address] [place] [id number] Mar, 2013 [facility] [address] [id number] [address] [place] [address], [place] [address] 02 Mar, 2013 [facility] [address] [id number] [address] [place] [address], [place] [address] 02 Mar, 2013 [facility] [address] [id number] [address] [place] [address], [place] [address] 05 Sep, 2013 [facility] [address] [id number] [address] [place] [address], [place] [address] 05 Sep, 2013 [facility] [address] [id number] [address] [place] [address], [place] [address] 04 Sep, 2013 [facility] [address] [id number] [address] [place] [address], [place] [address] 04 Sep, 2013 [facility] [address] [id number] [address] [place] [address], [place] [address] 03 Feb, 2013 [facility] [address] [id number] [address] [place] [address], [place] [address] 03 Feb, 2013 [facility] [address] [id number] [address] [place] [address], [place] [address] 02 Feb, 2013 [facility] [address] [id number] [address] [place] [address], [place] [address] Feb, 2013 [facility] [address] [id number] [address] [place] [address], [place] [address] 02 Feb, 2013 [facility] [address] [id number] [address] [place] [address], [place] [address] Feb, 2013 [facility] [address] [id number] [address] [place] [address], [place] [address] Jan, [facility] [address] [id number] [address] [place] [address], [place] [address] Jan, [facility] [address] [id number] [address] [place] [address], [place] [address] Jan, [facility] [address] [id number] [address] [place] [address], [place] [address] Jan, [facility] [address] [id number] [facility] [place] [address] Jan, [facility] [address] [id number] [address] [place] [address], [place] [address] Jan, [facility] [address] [id number] [address] [place] [address], [place] [address] Jan, [facility] [address] [id number] [address] [place] [address], [place] [address] Jan, [facility] [address] [id number] [address] [place] [address], [place] [address] Jan, [facility] [address] [id number] [address] [place] [address], [place] [address] Jan, [facility] [address] [id number] [address] [place] [address], [place] [address] Jan, [facility] [address] [id number] [address] [place] [address], [place] [address] Jan, [facility] [address] [id number] [address] [place] [address], [place] [address] Dec, [facility] [address] [id number] [address] [place] [address], [place] [address] Dec, [facility] [address] [id number] [address] [place] [address], [place] [address] Dec, [facility] [address] [id number] [address] [place] [address], [place] [address] Dec, [facility] [address] [id number] [address] [place] [address], [place] [address] Dec, [facility] [address] [id number] [address] [place] [address], [place] [address] Dec, [facility] [address] [id number] [address] [place] [address], [place] [address] Dec, [facility] [address] [id number] [address] [place] [address], [place] [address] Dec, [facility] [address] [id number] [facility] [place] [address] Dec, [facility] [address] [id number] [address] [place] [address], [place] [address] Dec, [facility] [address] [id number] [address] [place] [address], [place] [address] Dec, [facility] [address] [id number] [address] [place] [address], [place] [address] Dec, [facility] [address] [id number] [address] [place] [address], [place] [address] Nov, [facility] [address] [id number] [address] [place] [address], [place] [address] Nov, [facility] [address] [id number] [address] [place] [address], [place] [address] Nov, [facility] [address] [id number] [address] [place] [address], [place] [address] Nov, [facility] [address] [id number] [address] [place] [address], [place] [address] Nov, [facility] [address] [id number] [address] [place] [address], [place] [address] Nov, [facility] [address] [id number] [address] [place] [address], [place] [address] Nov, [facility] [address] [id number] [address] [place] [address], [place] [address] Nov, [facility] [address] [id number] [address] [place] [address], [place] [address] Nov, [facility] [address] [id number] [address] [place] [address], [place] [address] Nov, [facility] [address] [id number] [address] [place] [address], [place] [address] Nov, [facility] [address] [id number] [facility] [place] [address] Nov, [facility] [address] [id number] [address] [place] [address], [place] [address] Nov, [facility] [address] [id number] [address] [place] [address], [place] [address] Nov, [facility] [address] [id number] [address] [place] [address], [place] [address] October, [facility] [address] [id number] [address] [place] [address], [place] [address] October, [facility] [address] [id number] [address] [place] [address], [place] [address] October, [facility] [address] [id number] [address] [place] [address], [place] [address] October, [facility] [address] [id number] [address] [place] [address], [place] [address] October, [facility] [address] [id number] [address] [place] [address], [place] [address] October, [facility] [address] [id number] [address] [place] [address], [place] [address] October, [facility] [address] [id number] [address] [place] [address], [place] [address] October, [facility] [address] [id number] [address] [place] [address], [place] [address] October, [facility] [address] [id number] [address] [place] [address], [place] [address] October, [facility] [address] [id number] [address] [place] [address], [place] [address] October, [facility] [address] [id number] [address] [place] [address], [place] [address] October, [facility] [address] [id number] [address] [place] [address], [place] [address] Sep, [facility] [address] [id number] [facility] [place] [address] Sep, [facility] [address] [id number] [address] [place] [address], [place] [address] Sep, [facility] [address] [id number] [facility] [place] [address] Sep, [facility] [address] [id number] [address] [place] [address], [place] [address] Sep, [facility] [address] [id number] [address] [place] [address], [place] [address] Sep, [facility] [address] [id number] [address] [place] [address], [place] [address] Aug, [facility] [address] [id number] [address] [place] [address], [place] [address] Aug, [facility] [address] [id number] [address] [place] [address], [place] [address] Aug, [facility] [address] [id number] [address] [place] [address], [place] [address] Aug, [facility] [address] [id number] [address] [place] [address], [place] [address] Aug, [facility] [address] [id number] [address] [place] [address], [place] [address] Aug, [facility] [address] [id number] [address] [place] [address], [place] [address] Jul, [facility] [address] [id number] [address] [place] [address], [place] [address] Jul, [facility] [address] [id number] [address] [place] [address], [place] [address] Jul, [facility] [address] [id number] [address] [place] [address], [place] [address] Jul, [facility] [address] [id number] [address] [place] [address], [place] [address] 13 Jul, 2013 [facility] [address] [id number] [address] [place] [address], [place] [address] Jul, [facility] [address] [id number] [address] [place] [address], [place] [address] Jul, [facility] [address] [id number] [address] [place] [address], [place] [address] Jul, [facility] [address] [id number] [address] [place] [address], [place] [address] Jul, [facility] [address] [id number] [address] [place] [address], [place] [address] Jul, [facility] [address] [id number] [address] [place] [address], [place] [address] Jun, [facility] [address] [id number] [address] [place] [address], [place] [address] Jun, [facility] [address] [id number] [address] [place] [address], [place] [address] Jun, [facility] [address] [id number] [address] [place] [address], [place] [address] Jun, [facility] [address] [id number] [address] [place] [address], [place] [address] Jun, [facility] [address] [id number] [address] [place] [address], [place] [address] Jun, [facility] [address] [id number] [address] [place] [address], [place] [address] Jun, [facility] [address] [id number] [address] [place] [address], [place] [address] Jun, [facility] [address] [id number] [address] [place] [address], [place] [address] May, [facility] [address] [id number] [address] [place] [address], [place] [address] May, [facility] [address] [id number] [address] [place] [address], [place] [address] May, [facility] [address] [id number] [address] [place] [address], [place] [address] May, [facility] [address] [id number] [address] [place] [address], [place] [address] May, [facility] [address] [id number] [address] [place] [address], [place] [address] May, [facility] [address] [id number] [address] [place] [address], [place] [address] May, [facility] [address] [id number] [address] [place] [address], [place] [address] May, [facility] [address] [id number] [address] [place] [address], [place] [address] Apr, [facility] [address] [id number] [address] [place] [address] Apr, [facility] [address] [id number] [address] [place] [address], [place] [address] Apr, [facility] [address] [id number] [address] [place] [address] Apr, [facility] [address] [id number] [address] [place] [address] Apr, [facility] [address] [id number] [address] [place] [address] Apr, [facility] [address] [id number] [address] [place] [address], [place] [address] Mar, [facility] [address] [id number] [address] [place] [address] Mar, [facility] [address] [id number] [address] [place] [address], [place] [address] Mar, [facility] [address] [id number] [address] [place] [address], [place] [address] Mar, [facility] [address] [id number] [address] [place] [address], [place] [address] Mar, [facility] [address] [id number] [address] [place] [address], [place] [address] Mar, [facility] [address] [id number] [address] [place] [address], [place] [address] Mar, [facility] [address] [id number] [address] [place] [address], [place] [address] 30 Feb, 2012 [facility] [address] [id number] [address] [place] [address], [place] [address] 30 Feb, 2013 [facility] [address] [id number] [address] [place] [address], [place] [address] 27 Feb, 2013 [facility] [address] [id number] [address] [place] [address], [place] [address] Feb, 2012 [facility] [address] [id number] [address] [place] [address], [place] [address] Feb, [facility] [address] [id number] [address] [place] [address], [place] [address] Feb, [facility] [address] [id number] [address] [place] [address], [place] [address] Jan, [facility] [address] [id number] [address] [place] [address], [place] [address] Jan, [facility] [address] [id number] [address] [place] [address], [place] [address] Jan, [facility] [address] [id number] [address] [place] [address], [place] [address] Jan, [facility] [address] [id number] [address] [place] [address], [place] [address] Jan, [facility] [address] [id number] [address] [place] [address], [place] [address] Jan, [facility] [address] [id number] [address] [place] [address], [place] [address] Jan, [facility] [address] [id number] [address] [place] [address], [place] [address] Jan, [facility] [address] [id number] [address] [place] [address], [place] [address] Jan, [facility] [address] [id number] [address] [place] [address], [place] [address] Dec, [facility] [address] [id number] [address] [place] [address], [place] [address] Dec, [facility] [address] [id number] [address] [place] [address], [place] [address] Dec, [facility] [address] [id number] [address] [place] [address], [place] [address] Dec, [facility] [address] [id number] [address] [place] [address], [place] [address] Dec, [facility] [address] [id number] [address] [place] [address], [place] [address] Dec, [facility] [address] [id number] [address] [place] [address], [place] [address] Dec, [facility] [address] [id number] [address] [place] [address], [place] [address] Dec, [facility] [address] [id number] [address] [place] [address], [place] [address] Dec, [facility] [address] [id number] [address] [place] [address], [place] [address] Dec, [facility] [address] [id number] [address] [place] [address], [place] [address] Dec, [facility] [address] [id number] [address] [place] [address], [place] [address] Dec, [facility] [address] [id number] [address] [place] [address], [place] [address] Dec, [facility] [address] [id number] [address] [place] [address], [place] [address] Nov, [facility] [address] [id number] [address] [place] [address], [place] [address] Nov, [facility] [address] [id number] [address] [place] [address], [place] [address] Nov, [facility] [address] [id number] [address] [place] [address], [place] [address] Nov, [facility] [address] [id number] [address] [place] [address], [place] [address] October, [facility] [address] [id number] [address] [place] [address], [place] [address] October, [facility] [address] [id number] [address] [place] [address], [place] [address] October, [facility] [address] [id number] [address] [place] [address], [place] [address] October, [facility] [address] [id number] [address] [place] [address], [place] [address] October, [facility] [address] [id number] [address] [place] [address], [place] [address] October, [facility] [address] [id number] [address] [place] [address], [place] [address] Sep, [facility] [address] [id number] [address] [place] [address], [place] [address] Sep, [facility] [address] [id number] [address] [place] [address], [place] [address] Sep, [facility] [address] [id number] [address] [place] [address], [place] [address] Sep, [facility] [address] [id number] [address] [place] [address], [place] [address] Sep, [facility] [address] [id number] [facility] [place] [address] 16 Sep, 2012 [facility] [address] [id number] [address] [place] [address], [place] [address] 12 Sep, 2012 [facility] [address] [id number] [address] [place] [address], [place] [address] Sep, [facility] [address] [id number] [address] [place] [address], [place] [address] Sep, [facility] [address] [id number] [address] [place] [address], [place] [address] Sep, [facility] [address] [id number] [address] [place] [address], [place] [address] Sep, [facility] [address] [id number] [address] [place] [address], [place] [address] Aug, [facility] [address] [id number] [address] [place] [address], [place] [address] 25 Aug, 2012 [facility] [address] [id number] [address] [place] [address], [place] [address] 25 Aug, 2012 [facility] [address] [id number] [address] [place] [address], [place] [address] 21 Aug, 2012 [facility] [address] [id number] [address] [place] [address], [place] [address] 19 Aug, 2012 [facility] [address] [id number] [address] [place] [address], [place] [address] 18 Aug, 2012 [facility] [address] [id number] [address] [place] [address], [place] [address] 17 Aug, 2012 [facility] [address] [id number] [address] [place] [address], [place] [address] 15 Aug, 2012 [facility] [address] [id number] [address] [place] [address], [place] [address] 15 Aug, 2012 [facility] [address] [id number] [address] [place] [address], [place] [address] Aug, [facility] [address] [id number] [address] [place] [address], [place] [address] Aug, [facility] [address] [id number] [address] [place] [address], [place] [address] Aug, [facility] [address] [id number] [address] [place] [address], [place] [address] Jul, [facility] [address] [id number] [address] [place] [address], [place] [address] Jul, [facility] [address] [id number] [address] [place] [address], [place] [address] Jul, [facility] [address] [id number] [address] [place] [address], [place] [address] Jul, [facility] [address] [id number] [address] [place] [address], [place] [address] Jul, [facility] [address] [id number] [address] [place] [address], [place] [address] Jul, [facility] [address] [id number] [address] [place] [address], [place] [address] Jul, [facility] [address] [id number] [address] [place] [address], [place] [address] Jul, [facility] [address] [id number] [address] [place] [address], [place] [address] Jul, [facility] [address] [id number] [address] [place] [address], [place] [address] Jul, [facility] [address] [id number] [address] [place] [address], [place] [address] May, [facility] [address] [id number] [id number] May, [facility] [address] [id number] [address] [place] [address], [place] [address] May, [facility] [address] [id number] [address] [place] [address] May, [facility] [address] [facility] [id number] [address] [place] [address] May, [facility] [address] [facility] [id number] [address] [place] [address] Apr, [facility] [address] [id number] [place] [id number] Apr, [facility] [address] [facility] [id number] [address] [place] [address] Apr, [facility] [address] [facility] [id number] [address] [place] [phone] Mar, [facility] [address] [id number] [place] [id number] Mar, [facility] [address] [facility] [id number] [address] [place] [id number] Mar, [facility] [address] [id number] [place] [id number] Feb, [facility] [address] [facility] [id number] [address] [place] [phone] Feb, [facility] [address] [facility] [id number] [address] [place] [phone] Feb, [facility] [address] [id number] [place] [id number] Feb, [facility] [address] [id number] [place] [id number] Feb, [facility] [address] [id number] [place] [id number] Jan, [facility] [address] [id number] [address] [place] [address], [place] [address] Jan, [facility] [address] [id number] [place] [id number] Jan, [facility] [address] [id number] [place] [id number] Jan, [facility] [address] [id number] [place] [id number] Jan, [facility] [address] [facility] [id number] [address] [place] [address], [place] [phone] Jan, [facility] [address] [facility] [id number] [address] [place] [address], [place] [address] Jan, [facility] [address] [facility] [id number] [address] [place] [address], [place] [address] Aug, [facility] [address] [id number] [place] [id number] Aug, [facility] [address] [facility] [id number] [address] [place] [address], [place] [address] Jul, [facility] [address] [facility] [id number] [address] [place] [address], [place] [address] Jul, [facility] [address] [facility] [id number] [address] [place] [address], [place] [address] Jul, [facility] [address] [id number] [place] [id number] Jul, [facility] [address] [facility] [id number] [address] [place] [address], [place] [address] Jul, [facility] [address] [id number] [place] [id number] Jul, [facility] [address] [facility] [id number] [address] [place] [address], [place] [address] Jul, [facility] [address] [id number] [place] [id number] Jul, [facility] [address] [id number] [place] [id number] Jul, [facility] [address] [id number] [place] [id number] Jul, [facility] [address] [facility] [id number] [address] [place] [address], [place] [address] May, [facility] [address] [id number] [address] [place] [id number] May, [facility] [address] [id number] [address] [place] [id number] May, [facility] [address] [id number] [address] [place] [phone] Apr, [facility] [address] [id number] [address] [place] [id number] Jan, [facility] [address] [id number] [address] [place] [id number] Jan, [facility] [address] [id number] [address] [place] [id number] Dec, [facility] [address] [id number] [address] [place] [id number] Dec, [facility] [address] [id number] [address] [place] [phone] May, [facility] [address] [id number] [address] [place] [id number] Mar, [facility] [address] [id number] [address] [place] [phone] Mar, [facility] [address] [id number] [address] [place] [phone] Jan, IMMUNIZATIONS No Known Immunizations SOCIAL HISTORY Never Assessed REASON FOR VISIT PLAN OF CARE VITAL SIGNS Height 63 in 2014-02-08 Weight 194.49 lbs 2014-02-08 Temperature 99 degrees Fahrenheit 2014-02-08 Heart Rate 80 bpm 2014-02-08 Respiratory Rate 18 2014-02-08 Blood pressure systolic 128 mmHg 2014-02-08 Blood pressure diastolic 82 mmHg 2014-02-08 MEDICATIONS Unknown Medications RESULTS No Results PROCEDURES Procedure Date Ordered Result Body Site PROTHROMBIN TIME Feb 08, 2014 GONADOTROPIN (LH) Feb 08, 2014 GONADOTROPIN (FSH) Feb 08, 2014 VENIPUNCT, ROUTINE* Feb 08, 2014 INSTRUCTIONS MEDICATIONS ADMINISTERED No Known [...]
--- OUTSIDE RECORDS SUMMARY | 2020-01-28 12:29 | XMS REPORT ---
Author Author Heydi Candelario Doctor Organization [facility] Address Unknown Phone Unavailable Care Team Providers Care Automotive Services Manager Name Role Phone Migration, Doctor Unavailable Unavailable PROBLEMS Type Condition ICD9-CM Code UHH22-DO Code Onset Dates Condition S tatus SNOMED Code Problem Chronic pain syndrome G89.4 Active 428281006 Problem Sore throat J02.9 Active 29078052 3 Problem Choriocarcinoma C58 Active 1881 74398 Problem assisted 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 Z79.01 Active 998339594 Problem History of venous thromboembolism V12.51 Active 359152078 Problem Cellulitis of unspecified part of limb L03.119 Active 183480147 Problem Gastroesophageal reflux disease without esophagitis K21.9 Active 788354741 Problem History of pulmonary embolism Z86.711 Active 417782293 Problem Pseudotumor cerebri G93.2 Active 72568347 Problem History of DVT (deep vein thrombosis) Z86.718 Active [id number] ALLERGIES No Information ENCOUNTERS Encounter Location Date Diagnosis [place] [address] [facility] [id number] [address] [place] [address] Apr, 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 [place] [id number] [facility] [id number] [address] [place] [address] Apr, 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.01 [place] [address] [facility] [id number] [address] [place] [address] Apr, Cellulitis of unspecified pa rt of limb L03.119 ; Allergic contact dermatitis due to adhesives L23.1 and Chronic pain syndrome G89.4 [facility] [address] [facility] [id number] [address] [place] [address] Apr, [place] [address] [facility] [id number] [address] [place] [address] Apr, assisted 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.01 ; Cellulitis of unspecified part of limb L03.119 ; Chronic pain syndrome G89.4 and Anxiety F41.9 [place] [address] [place] [id number] [address] [place] [address] 16 Apr, 2015 [place] [address] [place] [id number] [place] [address] Apr, [place] [address] [address] Mar, [place] [address] [place] [id number] [place] [address] Mar, [place] [address] [address] Mar, Sore throat J02.9 ; Gastroes ophageal reflux disease without esophagitis K21.9 ; Pseudotumor cerebri G93.2 ; Chronic pain syndrome G89.4 ; Choriocarcinoma C58 ; History of pulmonary embolism Z86.711 ; History of DVT (deep vein thrombosis) Z86.718 ; Anxiety F41.9 and Tachycardia R00.0 [place] [address] [address] Feb, Anxiety 300.00 and Chronic p ain 338.29 [place] [address] [place] [id number] [address] [place] [address] Feb, [place] [id number] [place] [address] Feb, [place] [address] [place] [id number] [place] [address] Jan, assisted 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 therapy V58.61 and Dysuria 788.1 [place] [address] [place] [id number] [address] [place] [address] Jan, Dysuria 788.1 [place] [address] [place] [id number] [place] [address] Jan, Anxiety 300.00 and Chronic p ain 338.29 [place] [address] [address] Jan, [facility] [address] [address] Jan, [place] [address] [address] Jan, [place] [address] [address] Dec, Weakness 780.79 [place] [address] [address] Dec, 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.61 [place] [address] [address] Dec, Palpitations 785.1 ; Tremor 781.0 ; Weakness 780.79 ; assisted 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 therapy V58.61 and Yeast vaginitis 112.1 [place] [address] [address] Dec, [place] [address] [address] Dec, Cervicalgia 723.1 ; Tachycar yoseph 785.0 ; Pseudotumor cerebri 348.2 and History of venous thromboembolism V12.51 [place] [address] [place] [id number] [address] [place] [address] Nov, [place] [address] [address] Nov, [place] [address] [address] Nov, Tachycardia 785.0 ; Pseudotu mor cerebri 348.2 ; Anxiety 300.00 and History of venous thromboembolism V12.51 [facility] [address] [id number] [address] [place] [address], [place] [address] Nov, [facility] [address] [id number] [address] [place] [address], [place] [address] 18 Nov, 2014 [facility] [address] [id number] [address] [place] [address], [place] [address] 16 Nov, 2014 [facility] [address] [id number] [address] [place] [address], [place] [address] Nov, [facility] [address] [id number] [address] [place] [address], [place] [address] Nov, [facility] [address] [id number] [address] [place] [address], [place] [address] Nov, [facility] [address] [id number] [address] [place] [address], [place] [address] Nov, [facility] [address] [id number] [address] [place] [address] October, [facility] [address] [id number] [address] [place] [address] October, [facility] [address] [id number] [address] [place] [address] October, Pain in thoracic spine 724.1 and Tachycardia 785.0 [facility] [address] [id number] [address] [place] [address] October, [facility] [address] [id number] [address] [place] [address] October, [facility] [address] [id number] [address] [place] [address] Sep, [facility] [address] [id number] [address] [place] [address] Sep, [facility] [address] [id number] [address] [place] [address] Aug, [facility] [address] [id number] [address] [place] [address], [place] [address] Aug, [facility] [address] [id number] [address] [place] [address], [place] [address] Aug, [facility] [address] [id number] [address] [place] [address], [place] [address] 17 Aug, 2014 [facility] [address] [id number] [address] [place] [address], [place] [address] Aug, [facility] [address] [id number] [address] [place] [address], [place] [address] 16 Aug, 2014 [facility] [address] [id number] [address] [place] [address], [place] [address] Aug, [facility] [address] [id number] [address] [place] [address], [place] [address] Aug, [facility] [address] [id number] [address] [place] [address], [place] [address] Aug, 2014 [facility] [address] [id number] [address] [place] [address], [place] [address] Aug, [facility] [address] [id number] [address] [place] [address], [place] [address] Aug, [facility] [address] [id number] [address] [place] [address], [place] [address] Aug, [facility] [address] [id number] [address] [place] [address], [place] [address] Jul, 2014 [facility] [address] [id number] [address] [place] [address], [place] [address] Jul, 2014 [facility] [address] [id number] [address] [place] [address], [place] [address] Jul, 2014 [facility] [address] [id number] [address] [place] [address], [place] [address] Jul, 2014 [facility] [address] [id number] [address] [place] [address], [place] [address] b, 2014 [facility] [address] [id number] [address] [place] [address], [place] [address] 23 Jul, 2014 [facility] [address] [id number] [address] [place] [address], [place] [address] 23 Jul, 2014 [facility] [address] [id number] [address] [place] [address], [place] [address] 23 Jul, 2014 [facility] [address] [id number] [address] [place] [address], [place] [address] 20 Jul, 2014 [facility] [address] [id number] [address] [place] [address], [place] [address] 20 Jul, 2014 [facility] [address] [id number] [address] [place] [address], [place] [address] 19 Jul, 2014 [facility] [address] [id number] [address] [place] [address], [place] [address] 19 Jul, 2014 [facility] [address] [id number] [address] [place] [address], [place] [address] 17 Jul, 2014 [facility] [address] [id number] [address] [place] [address], [place] [address] 17 Jul, 2014 [facility] [address] [id number] [address] [place] [address], [place] [address] 16 Jul, 2014 [facility] [address] [id number] [address] [place] [address], [place] [address] 16 Jul, 2014 [facility] [address] [id number] [address] [place] [address], [place] [address] 16 Jul, 2014 [facility] [address] [id number] [address] [place] [address], [place] [address] 16 Jul, 2014 [facility] [address] [id number] [address] [place] [address], [place] [address] 13 Jul, 2014 [facility] [address] [id number] [address] [place] [address], [place] [address] Jul, 2014 [facility] [address] [id number] [address] [place] [address], [place] [address] Jul, 2014 [facility] [address] [id number] [address] [place] [address], [place] [address] Jul, 2014 [facility] [address] [id number] [address] [place] [address], [place] [address] Jul, 2014 [facility] [address] [id number] [address] [place] [address], [place] [address] Jul, 2014 [facility] [address] [id number] [address] [place] [address], [place] [address] Jul, [facility] [address] [id number] [address] [place] [address], [place] [address] Jul, [facility] [address] [id number] [address] [place] [address], [place] [address] Jul, [facility] [address] [id number] [address] [place] [address], [place] [address] Jul, [facility] [address] [id number] [address] [place] [address], [place] [address] Jul, [facility] [address] [id number] [address] [place] [address], [place] [address] Jul, [facility] [address] [id number] [address] [place] [address], [place] [address] Jun, [facility] [address] [id number] [address] [place] [address], [place] [address] Jun, [facility] [address] [id number] [address] [place] [address], [place] [address] Jun, [facility] [address] [id number] [address] [place] [address], [place] [address] Jun, [facility] [address] [id number] [address] [place] [address], [place] [address] Jun, [facility] [address] [id number] [address] [place] [address], [place] [address] Jun, [facility] [address] [id number] [address] [place] [address], [place] [address] Jun, [facility] [address] [id number] [address] [place] [address], [place] [address] Jun, [facility] [address] [id number] [address] [place] [address], [place] [address] Jun, [facility] [address] [id number] [address] [place] [address], [place] [address] Jun, [facility] [address] [id number] [address] [place] [address], [place] [address] Jun, [facility] [address] [id number] [address] [place] [address], [place] [address] Jun, [facility] [address] [id number] [address] [place] [address], [place] [address] Jun, [facility] [address] [id number] [address] [place] [address], [place] [address] Jun, [facility] [address] [id number] [address] [place] [address], [place] [address] Jun, [facility] [address] [id number] [address] [place] [address], [place] [address] Jun, [facility] [address] [id number] [address] [place] [address], [place] [address] Jun, [facility] [address] [id number] [address] [place] [address], [place] [address] Jun, [facility] [address] [id number] [address] [place] [address], [place] [address] Jun, [facility] [address] [id number] [address] [place] [address], [place] [address] Jun, [facility] [address] [id number] [address] [place] [address], [place] [address] May, [facility] [address] [id number] [address] [place] [address], [place] [address] May, [facility] [address] [id number] [address] [place] [address], [place] [address] May, [facility] [address] [id number] [address] [place] [address], [place] [address] May, [facility] [address] [id number] [address] [place] [address], [place] [address] May, [facility] [address] [id number] [address] [place] [address], [place] [address] May, [facility] [address] [id number] [address] [place] [address], [place] [address] May, [facility] [address] [id number] [address] [place] [address], [place] [address] May, [facility] [address] [id number] [address] [place] [address], [place] [address] May, [facility] [address] [id number] [address] [place] [address], [place] [address] May, [facility] [address] [id number] [address] [place] [address], [place] [address] May, [facility] [address] [id number] [address] [place] [address], [place] [address] 18 May, 2014 [facility] [address] [id number] [address] [place] [address], [place] [address] 18 May, 2014 [facility] [address] [id number] [address] [place] [address], [place] [address] 17 May, 2014 [facility] [address] [id number] [address] [place] [address], [place] [address] 16 May, 2014 [facility] [address] [id number] [address] [place] [address], [place] [address] 16 May, 2014 [facility] [address] [id number] [address] [place] [address], [place] [address] 15 May, 2014 [facility] [address] [id number] [address] [place] [address], [place] [address] 15 May, 2014 [facility] [address] [id number] [address] [place] [address], [place] [address] May, [facility] [address] [id number] [address] [place] [address], [place] [address] May, [facility] [address] [id number] [address] [place] [address], [place] [address] May, [facility] [address] [id number] [address] [place] [address], [place] [address] May, [facility] [address] [id number] [address] [place] [address], [place] [address] May, [facility] [address] [id number] [address] [place] [address], [place] [address] May, [facility] [address] [id number] [address] [place] [address], [place] [address] May, [facility] [address] [id number] [address] [place] [address], [place] [address] May, [facility] [address] [id number] [address] [place] [address], [place] [address] May, [facility] [address] [id number] [address] [place] [address], [place] [address] May, [facility] [address] [id number] [address] [place] [address], [place] [address] May, [facility] [address] [id number] [address] [place] [address], [place] [address] May, [facility] [address] [id number] [address] [place] [address], [place] [address] May, [facility] [address] [id number] [address] [place] [address], [place] [address] May, [facility] [address] [id number] [address] [place] [address], [place] [address] May, [facility] [address] [id number] [address] [place] [address], [place] [address] May, [facility] [address] [id number] [address] [place] [address], [place] [address] Apr, [facility] [address] [id number] [address] [place] [address], [place] [address] Apr, [facility] [address] [id number] [address] [place] [address], [place] [address] Apr, [facility] [address] [id number] [address] [place] [address], [place] [address] Apr, [facility] [address] [id number] [address] [place] [address], [place] [address] Apr, [facility] [address] [id number] [address] [place] [address], [place] [address] Apr, [facility] [address] [id number] [address] [place] [address], [place] [address] Apr, [facility] [address] [id number] [address] [place] [address], [place] [address] Apr, [facility] [address] [id number] [address] [place] [address], [place] [address] Apr, [facility] [address] [id number] [address] [place] [address], [place] [address] Apr, [facility] [address] [id number] [address] [place] [address], [place] [address] Mar, [facility] [address] [id number] [address] [place] [address], [place] [address] Mar, [facility] [address] [id number] [address] [place] [address], [place] [address] Mar, [facility] [address] [id number] [address] [place] [address], [place] [address] 31 Mar, 2013 [facility] [address] [id number] [address] [place] [address], [place] [address] 30 Mar, 2013 [facility] [address] [id number] [address] [place] [address], [place] [address] 30 Mar, 2014 [facility] [address] [id number] [address] [place] [address], [place] [address] Mar, 2013 [facility] [address] [id number] [address] [place] [address], [place] [address] 17 Mar, 2013 [facility] [address] [id number] [address] [place] [address], [place] [address] 15 Mar, 2014 [facility] [address] [id number] [address] [place] [id number] 15 Mar, 2014 [facility] [address] [id number] [address] [place] [address], [place] [address] 15 Mar, 2014 [facility] [address] [id number] [address] [place] [id number] Mar, [facility] [address] [id number] [address] [place] [address], [place] [address] Mar, [facility] [address] [id number] [address] [place] [id number] Mar, [facility] [address] [id number] [address] [place] [id number] Mar, [facility] [address] [id number] [address] [place] [id number] Mar, 2013 [facility] [address] [id number] [address] [place] [address], [place] [address] Mar, [facility] [address] [id number] [address] [place] [id number] Mar, [facility] [address] [id number] [address] [place] [id number] Mar, 2013 [facility] [address] [id number] [address] [place] [address], [place] [address] 02 Mar, 2013 [facility] [address] [id number] [address] [place] [address], [place] [address] 05 Sep, 2013 [facility] [address] [id number] [address] [place] [address], [place] [address] 05 Sep, 2013 [facility] [address] [id number] [address] [place] [address], [place] [address] 04 Sep, 2013 [facility] [address] [id number] [address] [place] [address], [place] [address] 04 Sep, 2013 [facility] [address] [id number] [address] [place] [address], [place] [address] 03 Feb, 2013 [facility] [address] [id number] [address] [place] [address], [place] [address] Feb, 2013 [facility] [address] [id number] [address] [place] [address], [place] [address] Feb, 2013 [facility] [address] [id number] [address] [place] [address], [place] [address] Feb, 2013 [facility] [address] [id number] [address] [place] [address], [place] [address] Feb, 2013 [facility] [address] [id number] [address] [place] [address], [place] [address] Feb, 2013 [facility] [address] [id number] [address] [place] [address], [place] [address] Jan, [facility] [address] [id number] [address] [place] [address], [place] [address] Jan, [facility] [address] [id number] [address] [place] [address], [place] [address] Jan, [facility] [address] [id number] [address] [place] [address], [place] [address] Jan, [facility] [address] [id number] [address] [place] [address], [place] [address] Jan, [facility] [address] [id number] [address] [place] [address], [place] [address] Jan, [facility] [address] [id number] [address] [place] [address], [place] [address] Jan, [facility] [address] [id number] [address] [place] [address], [place] [address] Jan, [facility] [address] [id number] [address] [place] [address], [place] [address] Jan, [facility] [address] [id number] [address] [place] [address], [place] [address] Jan, [facility] [address] [id number] [address] [place] [address], [place] [address] Jan, [facility] [address] [id number] [address] [place] [address], [place] [address] Jan, [facility] [address] [id number] [address] [place] [address], [place] [address] Dec, [facility] [address] [id number] [address] [place] [address], [place] [address] Dec, [facility] [address] [id number] [address] [place] [address], [place] [address] Dec, [facility] [address] [id number] [address] [place] [address], [place] [address] Dec, [facility] [address] [id number] [address] [place] [address], [place] [address] Dec, [facility] [address] [id number] [address] [place] [address], [place] [address] Dec, [facility] [address] [id number] [address] [place] [address], [place] [address] Dec, [facility] [address] [id number] [address] [place] [address], [place] [address] Dec, [facility] [address] [id number] [address] [place] [address], [place] [address] Dec, [facility] [address] [id number] [address] [place] [address], [place] [address] Dec, [facility] [address] [id number] [address] [place] [address], [place] [address] Dec, [facility] [address] [id number] [address] [place] [address], [place] [address] Dec, [facility] [address] [id number] [address] [place] [address], [place] [address] Nov, [facility] [address] [id number] [address] [place] [address], [place] [address] Nov, [facility] [address] [id number] [address] [place] [address], [place] [address] Nov, [facility] [address] [id number] [address] [place] [address], [place] [address] Nov, [facility] [address] [id number] [address] [place] [address], [place] [address] Nov, [facility] [address] [id number] [address] [place] [address], [place] [address] Nov, [facility] [address] [id number] [address] [place] [address], [place] [address] Nov, [facility] [address] [id number] [address] [place] [address], [place] [address] Nov, [facility] [address] [id number] [address] [place] [address] Nov, [facility] [address] [id number] [address] [place] [address], [place] [address] Nov, [facility] [address] [id number] [address] [place] [address], [place] [address] Nov, [facility] [address] [id number] [address] [place] [address], [place] [address] Nov, [facility] [address] [id number] [address] [place] [address], [place] [address] Nov, [facility] [address] [id number] [address] [place] [address], [place] [address] Nov, [facility] [address] [id number] [address] [place] [address], [place] [address] October, [facility] [address] [id number] [address] [place] [address], [place] [address] October, [facility] [address] [id number] [address] [place] [address], [place] [address] October, [facility] [address] [id number] [address] [place] [address], [place] [address] October, [facility] [address] [id number] [address] [place] [address], [place] [address] October, [facility] [address] [id number] [address] [place] [address], [place] [address] October, [facility] [address] [id number] [address] [place] [address], [place] [address] October, [facility] [address] [id number] [address] [place] [address], [place] [address] October, [facility] [address] [id number] [address] [place] [address], [place] [address] October, [facility] [address] [id number] [address] [place] [address], [place] [address] October, [facility] [address] [id number] [address] [place] [address], [place] [address] October, [facility] [address] [id number] [address] [place] [address], [place] [address] October, [facility] [address] [id number] [address] [place] [address], [place] [address] Sep, [facility] [address] [id number] [address] [place] [address], [place] [address] Sep, [facility] [address] [id number] [facility] [address] Sep, [facility] [address] [id number] [address] [place] [address], [place] [address] Sep, [facility] [address] [id number] [address] [place] [address], [place] [address] Sep, [facility] [address] [id number] [address] [place] [address], [place] [address] Sep, [facility] [address] [id number] [address] [place] [address], [place] [address] Aug, [facility] [address] [id number] [address] [place] [address], [place] [address] Aug, [facility] [address] [id number] [address] [place] [address], [place] [address] Aug, [facility] [address] [id number] [address] [place] [address], [place] [address] Aug, [facility] [address] [id number] [address] [place] [address], [place] [address] Aug, [facility] [address] [id number] [address] [place] [address], [place] [address] Aug, [facility] [address] [id number] [address] [place] [address], [place] [address] Jul, [facility] [address] [id number] [address] [place] [address], [place] [address] Jul, [facility] [address] [id number] [address] [place] [address], [place] [address] Jul, [facility] [address] [id number] [address] [place] [address], [place] [address] Jul, [facility] [address] [id number] [address] [place] [address], [place] [address] Jul, [facility] [address] [id number] [address] [place] [address], [place] [address] 13 Jul, 2013 [facility] [address] [id number] [address] [place] [address], [place] [address] Jul, [facility] [address] [id number] [address] [place] [address], [place] [address] Jul, [facility] [address] [id number] [address] [place] [address], [place] [address] Jul, [facility] [address] [id number] [address] [place] [address], [place] [address] Jul, [facility] [address] [id number] [address] [place] [address], [place] [address] Jun, [facility] [address] [id number] [address] [place] [address], [place] [address] Jun, [facility] [address] [id number] [address] [place] [address], [place] [address] Jun, [facility] [address] [id number] [address] [place] [address], [place] [address] Jun, [facility] [address] [id number] [address] [place] [address], [place] [address] Jun, [facility] [address] [id number] [address] [place] [address], [place] [address] Jun, [facility] [address] [id number] [address] [place] [address], [place] [address] Jun, [facility] [address] [id number] [address] [place] [address], [place] [address] Jun, [facility] [address] [id number] [address] [place] [address], [place] [address] May, [facility] [address] [id number] [address] [place] [address], [place] [address] May, [facility] [address] [id number] [address] [place] [address] [address] May, [facility] [address] [id number] [address] [place] [address], [place] [address] May, [facility] [address] [id number] [address] [place] [address], [place] [address] May, [facility] [address] [id number] [address] [place] [address], [place] [address] May, [facility] [address] [id number] [address] [place] [address], [place] [address] May, [facility] [address] [id number] [address] [place] [address], [place] [address] May, [facility] [address] [id number] [address] [place] [address], [place] [address] Apr, [facility] [address] [id number] [address] [place] [address], [place] [address] Apr, [facility] [address] [id number] [address] [place] [address] Apr, [facility] [address] [id number] [address] [place] [address] Apr, [facility] [address] [id number] [address] [place] [address] Apr, [facility] [address] [id number] [address] [place] [address] Apr, [facility] [address] [id number] [address] [place] [address] Mar, [facility] [address] [id number] [address] [place] [address] Mar, [facility] [address] [id number] [address] [place] [address] Mar, [facility] [address] [id number] [address] [place] [address] Mar, [facility] [address] [id number] [address] [place] [address], [place] [address] Mar, [facility] [address] [id number] [address] [place] [address], [place] [address] Mar, [facility] [address] [id number] [address] [place] [address], [place] [address] Mar, [facility] [address] [id number] [address] [place] [address], [place] [address] 30 Feb, 2013 [facility] [address] [id number] [address] [place] [address], [place] [address] 30 Feb, 2013 [facility] [address] [id number] [address] [place] [address], [place] [address] 27 Feb, 2013 [facility] [address] [id number] [address] [place] [address], [place] [address] Feb, [facility] [address] [id number] [address] [place] [address], [place] [address] Feb, [facility] [address] [id number] [address] [place] [address], [place] [address] Feb, [facility] [address] [id number] [address] [place] [address], [place] [address] Jan, [facility] [address] [id number] [address] [place] [address], [place] [address] Jan, [facility] [address] [id number] [address] [place] [address], [place] [address] Jan, [facility] [address] [id number] [address] [place] [address], [place] [address] Jan, [facility] [address] [id number] [address] [place] [address], [place] [address] Jan, [facility] [address] [id number] [address] [place] [address], [place] [address] Jan, [facility] [address] [id number] [address] [place] [address], [place] [address] Jan, [facility] [address] [id number] [address] [place] [address], [place] [address] Jan, [facility] [address] [id number] [address] [place] [address], [place] [address] Jan, [facility] [address] [id number] [address] [place] [address], [place] [address] Dec, [facility] [address] [id number] [address] [place] [address], [place] [address] Dec, [facility] [address] [id number] [address] [place] [address], [place] [address] Dec, [facility] [address] [id number] [address] [place] [address], [place] [address] Dec, [facility] [address] [id number] [address] [place] [address], [place] [address] Dec, [facility] [address] [id number] [address] [place] [address], [place] [address] Dec, [facility] [address] [id number] [address] [place] [address], [place] [address] Dec, [facility] [address] [id number] [address] [place] [address], [place] [address] Dec, [facility] [address] [id number] [address] [place] [address], [place] [address] Dec, [facility] [address] [id number] [address] [place] [address], [place] [address] Dec, [facility] [address] [id number] [address] [place] [address], [place] [address] Dec, [facility] [address] [id number] [address] [place] [address], [place] [address] Dec, [facility] [address] [id number] [address] [place] [address], [place] [address] Dec, [facility] [address] [id number] [address] [place] [address], [place] [address] Nov, [facility] [address] [id number] [address] [place] [address], [place] [address] Nov, [facility] [address] [id number] [address] [place] [address], [place] [address] Nov, [facility] [address] [id number] [address] [place] [address], [place] [address] Nov, [facility] [address] [id number] [address] [place] [address], [place] [address] October, [facility] [address] [id number] [address] [place] [address], [place] [address] October, [facility] [address] [id number] [address] [place] [address], [place] [address] October, [facility] [address] [id number] [address] [place] [address], [place] [address] October, [facility] [address] [id number] [address] [place] [address], [place] [address] October, [facility] [address] [id number] [address] [place] [address], [place] [address] October, [facility] [address] [id number] [address] [place] [address], [place] [address] 30 Sep, 2012 [facility] [address] [id number] [address] [place] [address], [place] [address] 29 Sep, 2012 [facility] [address] [id number] [address] [place] [address], [place] [address] 27 Sep, 2012 [facility] [address] [id number] [address] [place] [address], [place] [address] 23 Sep, 2012 [facility] [address] [id number] [address] [place] [address], [place] [address] Sep, [facility] [address] [id number] [address] [place] [address], [place] [address] 16 Sep, 2012 [facility] [address] [id number] [facility] [address] 12 Sep, 2012 [facility] [address] [id number] [address] [place] [address], [place] [address] Sep, [facility] [address] [id number] [address] [place] [address], [place] [address] Sep, [facility] [address] [id number] [address] [place] [address], [place] [address] Sep, [facility] [address] [id number] [address] [place] [address], [place] [address] Sep, [facility] [address] [id number] [address] [place] [address], [place] [address] Aug, [facility] [address] [id number] [address] [place] [address], [place] [address] Aug, [facility] [address] [id number] [address] [place] [address], [place] [address] 25 Aug, 2012 [facility] [address] [id number] [address] [place] [address], [place] [address] 21 Aug, 2012 [facility] [address] [id number] [address] [place] [address], [place] [address] 19 Aug, 2012 [facility] [address] [id number] [address] [place] [address], [place] [address] 18 Aug, 2012 [facility] [address] [id number] [address] [place] [address], [place] [address] 17 Aug, 2012 [facility] [address] [id number] [address] [place] [address], [place] [address] 15 Aug, 2012 [facility] [address] [id number] [address] [place] [address], [place] [address] 15 Aug, 2012 [facility] [address] [id number] [address] [place] [address], [place] [address] 11 Aug, 2012 [facility] [address] [id number] [address] [place] [address], [place] [address] Aug, [facility] [address] [id number] [address] [place] [address], [place] [address] Aug, [facility] [address] [id number] [address] [place] [address], [place] [address] Jul, [facility] [address] [id number] [address] [place] [address], [place] [address] Jul, [facility] [address] [id number] [address] [place] [address], [place] [address] Jul, [facility] [address] [id number] [address] [place] [address], [place] [address] Jul, [facility] [address] [id number] [address] [place] [address], [place] [address] Jul, [facility] [address] [id number] [address] [place] [address], [place] [address] Jul, [facility] [address] [id number] [address] [place] [address], [place] [address] Jul, [facility] [address] [id number] [address] [place] [address], [place] [address] Jul, [facility] [address] [id number] [address] [place] [address], [place] [address] Jul, [facility] [address] [id number] [address] [place] [address] Jul, [facility] [address] [id number] [address] [place] [address] May, [facility] [address] [id number] [place] [id number] May, [facility] [address] [id number] [address] [place] [address] May, [facility] [address] [id number] [address] [place] [address], [place] [address] 14 May, 2012 [facility] [address] [id number] [address] [place] [address], [place] [address] May, [facility] [address] [id number] [address] [place] [address], [place] [address] Apr, [facility] [address] [id number] [place] [id number] Apr, [facility] [address] [facility] [id number] [address] [place] [address], [place] [address] Apr, [facility] [address] [facility] [id number] [address] [place] [address], [place] [address] Mar, [facility] [address] [id number] [place] [id number] Mar, [facility] [address] [facility] [id number] [address] [place] [address], [place] [address] Mar, [facility] [address] [id number] [place] [id number] Feb, [facility] [address] [facility] [id number] [address] [place] [address], [place] [address] Feb, [facility] [address] [facility] [id number] [address] [place] [address], [place] [address] Feb, [facility] [address] [id number] [place] [id number] Feb, [facility] [address] [id number] [place] [id number] Feb, [facility] [address] [id number] [place] [id number] Jan, [facility] [address] [id number] [address] [place] [address], [place] [address] Jan, [facility] [place] [address] [id number] [place] [id number] Jan, [facility] [address] [id number] [place] [id number] Jan, [facility] [address] [id number] [place] [id number] Jan, [facility] [address] [id number] [address] [place] [address], [place] [address] Jan, [facility] [address] [facility] [id number] [address] [place] [address], [place] [address] Jan, [facility] [address] [facility] [id number] [address] [place] [address], [place] [address] Aug, [facility] [place] [address] [facility] [id number] [place] [id number] Aug, [facility] [address] [facility] [id number] [address] [place] [address], [place] [address] Jul, [facility] [address] [facility] [id number] [address] [place] [address], [place] [address] Jul, [facility] [address] [facility] [id number] [address] [place] [address], [place] [address] Jul, [facility] [address] [facility] [id number] [place] [id number] Jul, [facility] [address] [facility] [id number] [address] [place] [address], [place] [address] Jul, [facility] [address] [facility] [id number] [place] [id number] Jul, [facility] [address] [facility] [id number] [address] [place] [address], [place] [address] Jul, [facility] [address] [id number] [place] [id number] Jul, [facility] [address] [id number] [place] [id number] Jul, [facility] [address] [id number] [place] [id number] Jul, [facility] [address] [facility] [id number] [address] [place] [address], [place] [address] May, [facility] [address] [facility] [id number] [address] [place] [address], [place] [address] May, [facility] [address] [id number] [address] [place] [id number] May, [facility] [address] [id number] [address] [place] [id number] Apr, [facility] [address] [id number] [address] [place] [id number] Jan, [facility] [address] [id number] [address] [place] [id number] Jan, [facility] [address] [id number] [address] [place] [id number] Dec, [facility] [address] [id number] [address] [place] [id number] Dec, [facility] [address] [id number] [address] [place] [id number] May, [facility] [address] [id number] [address] [place] [id number] Mar, [facility] [address] [id number] [address] [place] [id number] Mar, [facility] [address] [id number] [address] [place] [id number] Jan, IMMUNIZATIONS No Known Immunizations SOCIAL HISTORY Never Assessed REASON FOR VISIT PLAN OF CARE VITAL SIGNS MEDICATIONS Unknown Medications RESULTS No Results PROCEDURES Procedure Date Ordered Result Body Site PROTHROMBIN TIME Jun 24, 2013 INSTRUCTIONS MEDICATIONS ADMINISTERED No Known Medications MEDICAL [...]
--- OUTSIDE RECORDS SUMMARY | 2020-01-28 12:29 | XMS REPORT ---
Author Author Heydi Candelario Doctor Organization [facility] Address Unknown Phone Unavailable Care Team Providers Care Travel Insurance Agent Name Role Phone Migration, Doctor Unavailable Unavailable PROBLEMS Type Condition ICD9-CM Code TMU69-MC Code Onset Dates Condition S tatus SNOMED Code Problem Chronic pain syndrome G89.4 Active 023510032 Problem Sore throat J02.9 Active 86891577 3 Problem Choriocarcinoma C58 Active 1881 31876 Problem [facility] 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 Z79.01 Active 861348127 Problem History of venous thromboembolism V12.51 Active 347605795 Problem Cellulitis of unspecified part of limb L03.119 Active 594762841 Problem Gastroesophageal reflux disease without esophagitis K21.9 Active 687728960 Problem History of pulmonary embolism Z86.711 Active 427011442 Problem Pseudotumor cerebri G93.2 Active 19523800 Problem History of DVT (deep vein thrombosis) Z86.718 Active 015638358 ALLERGIES No Information ENCOUNTERS Encounter Location Date Diagnosis [address] [address] Apr, 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 [place] [address] [address] Apr, 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 Z 79.01 [place] [address] [address] Apr, Cellulitis of unspecified part of limb L 03.119 ; Allergic contact dermatitis due to adhesives L23.1 and Chronic pain syndrome G89.4 [place] [address] [address] Apr, [place] [address] [address] Apr, 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 Z 79.01 ; Cellulitis of unspecified part of limb L03.119 ; Chronic pain syndrome G89.4 and Anxiety F41.9 [place] [address] [address] Apr, [place] [address] [address] Apr, [place] [address] [address] Mar, [address] [address] Mar, [address] [address] Mar, Sore throat J02.9 ; Gastroesophageal ref lux disease without esophagitis K21.9 ; Pseudotumor cerebri G93.2 ; Chronic pain syndrome G89.4 ; Choriocarcinoma C58 ; History of pulmonary embolism Z86.711 ; History of DVT (deep vein thrombosis) Z86.718 ; Anxiety F41.9 and Tachycardia R00.[address] [address] Feb, Anxiety 300.00 and Chronic pain 338.[address] [address] Feb, [address] [address] Feb, [address] [address] Jan, [facility] 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 t herapy V58.61 and Dysuria 788.[address] [address] Jan, Dysuria 788.[address] [address] Jan, Anxiety 300.00 and Chronic pain 338.[address] [address] Jan, [place] [address] [address] Jan, [place] [address] [address] Jan, [facility] [address] [address] Dec, Weakness 780.79 [place] [address] [place] [id number] Dec, [facility] 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 t herapy V58.61 [place] [address] [address] Dec, Palpitations 785.1 ; Tremor 781.0 ; Weak ness 780.79 ; 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 therapy V58.61 and Yeast vaginitis 112.1 [place] [address] [address] Dec, [place] [address] [address] Dec, Cervicalgia 723.1 ; Tachycardia 785.0 ; Pseudotumor cerebri 348.2 and History of venous thromboembolism V12.51 [place] [address] [address] Nov, [place] [address] [address] Nov, [place] [address] [address] Nov, Tachycardia 785.0 ; Pseudotumor cerebri 348.2 ; Anxiety 300.00 and History of venous thromboembolism V12.51 [place] [address] [address] Nov, [place] [address] [address] Nov, [place] [address] [address] Nov, [facility] [address] [id number] [place] [address] Nov, [facility] [address] [place] [id number] [place] [address] Nov, [facility] [address] [id number] [place] [address] 08 Nov, 2014 [facility] [address] [place] [id number] [place] [address] Nov, [facility] [address] [id number] [place] [address] October, [facility] [address] [place] [id number] [place] [address] October, [facility] [address] [place] [id number] [place] [address] October, Pain in thoracic spine 724.1 and Tachyca rdia 785.0 [facility] [address] [place] [id number] [place] [address] October, [facility] [address] [place] [id number] [place] [address] October, [facility] [address] [place] [id number] [place] [address] Sep, [facility] [address] [place] [id number] [place] [address] Sep, [facility] [address] [place] [id number] [place] [address] Aug, [facility] [address] [id number] [place] [address] Aug, [facility] [address] [place] [id number] [place] [address] Aug, [facility] [address] [id number] [place] [address] Aug, [facility] [address] [place] [id number] [place] [address] 16 Aug, 2014 [facility] [address] [id number] [place] [address] 16 Aug, 2014 [facility] [address] [id number] [place] [address] Aug, 2014 [facility] [address] [id number] [place] [address] Aug, 2014 [facility] [address] [id number] [place] [address] Aug, 2014 [facility] [address] [id number] [place] [address] Aug, 2014 [facility] [address] [id number] [place] [address] Aug, 2014 [facility] [address] [id number] [place] [address] Aug, 2014 [facility] [address] [id number] [place] [address] Jul, 2014 [facility] [address] [id number] [place] [address] Jul, 2014 [facility] [address] [id number] [place] [address] Jul, 2014 [facility] [address] [id number] [place] [address] Jul, 2014 [facility] [address] [id number] [place] [address] Jul, 2014 [facility] [address] [id number] [place] [address] Jul, 2014 [facility] [address] [id number] [place] [address] Jul, 2014 [facility] [address] [id number] [place] [address] Jul, 2014 [facility] [address] [id number] [place] [address] Jul, 2014 [facility] [address] [id number] [place] [address] 20 Jul, 2014 [facility] [address] [facility] [id number] [place] [address] 19 Jul, 2014 [facility] [address] [id number] [place] [address] 19 Jul, 2014 [facility] [address] [id number] [place] [address] 17 Jul, 2014 [facility] [address] [id number] [place] [address] 17 Jul, 2014 [facility] [address] [id number] [place] [address] 16 Jul, 2014 [facility] [address] [id number] [place] [address] 16 Jul, 2014 [facility] [address] [id number] [place] [address] 16 Jul, 2014 [facility] [address] [id number] [place] [address] 16 Jul, 2014 [facility] [address] [id number] [place] [address] 13 Jul, 2014 [facility] [address] [id number] [place] [address] 13 Jul, 2014 [facility] [address] [id number] [place] [address] 13 Jul, 2014 [facility] [address] [id number] [place] [address] 13 Jul, 2014 [facility] [address] [id number] [place] [address] 12 Jul, 2014 [facility] [address] [id number] [place] [address] 12 Jul, 2014 [facility] [address] [id number] [place] [address] 12 Jul, 2014 [facility] [address] [id number] [place] [address] Jul, [facility] [address] [id number] [place] [address] Jul, [facility] [address] [id number] [place] [address] Jul, [facility] [address] [id number] [place] [address] Jul, [facility] [address] [id number] [place] [address] Jul, [facility] [address] [id number] [place] [address] Jun, [facility] [address] [id number] [place] [address] Jun, [facility] [address] [id number] [place] [address] Jun, [facility] [address] [id number] [place] [address] Jun, [facility] [address] [id number] [place] [address] Jun, [facility] [address] [id number] [place] [address] Jun, [facility] [address] [id number] [place] [address] Jun, [facility] [address] [id number] [place] [address] Jun, [facility] [address] [id number] [place] [address] Jun, [facility] [address] [id number] [place] [address] Jun, [facility] [address] [id number] [place] [address] Jun, [facility] [address] [id number] [place] [address] Jun, [facility] [address] [id number] [place] [address] Jun, [facility] [address] [id number] [place] [address] Jun, [facility] [address] [id number] [place] [address] 16 Jun, 2014 [facility] [address] [id number] [place] [address] Jun, [facility] [address] [id number] [place] [address] Jun, [facility] [address] [id number] [place] [address] Jun, [facility] [address] [id number] [place] [address] Jun, [facility] [address] [id number] [place] [address] Jun, [facility] [address] [id number] [place] [address] May, [facility] [address] [id number] [place] [address] May, [facility] [address] [id number] [place] [address] May, [facility] [address] [id number] [place] [address] May, [facility] [address] [id number] [place] [address] May, [facility] [address] [id number] [place] [address] May, [facility] [address] [id number] [place] [address] May, [facility] [address] [id number] [place] [address] May, [facility] [address] [id number] [place] [address] May, [facility] [address] [facility] [id number] [place] [address] May, [facility] [address] [id number] [place] [address] May, [facility] [address] [id number] [place] [address] 18 May, 2014 [facility] [address] [id number] [place] [address] 18 May, 2014 [facility] [address] [id number] [place] [address] 17 May, 2014 [facility] [address] [id number] [place] [address] 16 May, 2014 [facility] [address] [id number] [place] [address] 16 May, 2014 [facility] [address] [id number] [place] [address] 15 May, 2014 [facility] [address] [id number] [place] [address] 15 May, 2014 [facility] [address] [id number] [place] [address] May, [facility] [address] [id number] [place] [address] May, [facility] [address] [id number] [place] [address] May, [facility] [address] [id number] [place] [address] May, [facility] [address] [id number] [place] [address] May, [facility] [address] [id number] [place] [address] May, [facility] [address] [id number] [place] [address] May, [facility] [address] [id number] [place] [address] May, [facility] [address] [id number] [place] [address] May, [facility] [address] [id number] [place] [address] May, [facility] [address] [id number] [place] [address] May, [facility] [address] [id number] [place] [address] May, [facility] [address] [id number] [place] [address] May, [facility] [address] [id number] [place] [address] May, [facility] [address] [id number] [place] [address] May, [facility] [address] [id number] [place] [address] May, [facility] [address] [id number] [place] [address] Apr, [facility] [address] [id number] [place] [address] Apr, [facility] [address] [id number] [place] [address] Apr, [facility] [address] [id number] [place] [address] Apr, [facility] [address] [id number] [place] [address] Apr, [facility] [address] [id number] [place] [address] Apr, [facility] [address] [id number] [place] [address] Apr, [facility] [address] [id number] [place] [address] Apr, [facility] [address] [id number] [place] [address] Apr, [facility] [address] [id number] [place] [address] Apr, [facility] [address] [id number] [place] [address] Mar, 2013 [facility] [address] [id number] [place] [address] Mar, [facility] [address] [id number] [place] [address] Mar, [facility] [address] [id number] [place] [address] Mar, [facility] [address] [id number] [place] [address] Mar, [facility] [address] [id number] [place] [address] Mar, [facility] [address] [id number] [place] [address] Mar, [facility] [address] [id number] [place] [address] Mar, [facility] [address] [id number] [place] [address] 15 Mar, 2014 [facility] [address] [id number] [place] [address] 15 Mar, 2014 [facility] [address] [id number] [place] [address] 15 Mar, 2014 [facility] [address] [id number] [place] [address] 15 Mar, 2014 [facility] [address] [id number] [place] [address] Mar, [facility] [address] [id number] [place] [address] Mar, [facility] [address] [id number] [place] [address] Mar, 2013 [facility] [address] [id number] [place] [address] Mar, 2013 [facility] [address] [id number] [place] [address] Mar, 2013 [facility] [address] [id number] [place] [address] Mar, 2013 [facility] [address] [id number] [place] [address] Mar, 2013 [facility] [address] [id number] [place] [address] Mar, 2013 [facility] [address] [id number] [place] [address] 05 Sep, 2013 [facility] [address] [id number] [place] [address] 05 Sep, 2013 [facility] [address] [id number] [place] [address] 04 Sep, 2013 [facility] [address] [id number] [place] [address] 04 Sep, 2013 [facility] [address] [id number] [place] [address] Sep, 2013 [facility] [address] [id number] [place] [address] 03 Sep, 2013 [facility] [address] [id number] [place] [address] Sep, 2013 [facility] [address] [id number] [place] [address] Sep, 2013 [facility] [address] [id number] [place] [address] Sep, 2013 [facility] [address] [id number] [place] [address] Sep, 2013 [facility] [address] [id number] [place] [address] Jan, 2013 [facility] [address] [id number] [facility] [place] [address] Jan, [facility] [address] [id number] [facility] [place] [address] Jan, [facility] [address] [facility] [id number] [facility] [place] [address] Jan, [facility] [address] [facility] [id number] [place] [address] Jan, [facility] [address] [facility] [id number] [facility] [place] [address] Jan, [facility] [address] [id number] [facility] [place] [address] Jan, [facility] [address] [facility] [id number] [place] [address] Jan, [facility] [address] [id number] [place] [address] Jan, [facility] [address] [facility] [id number] [place] [address] Jan, [facility] [address] [id number] [place] [address] Jan, [facility] [address] [facility] [id number] [place] [address] Jan, [facility] [address] [id number] [place] [address] Dec, [facility] [address] [id number] [place] [address] Dec, [facility] [address] [id number] [place] [address] Dec, [facility] [address] [id number] [place] [address] Dec, [facility] [address] [facility] [id number] [place] [address] Dec, [facility] [address] [id number] [place] [address] Dec, [facility] [address] [facility] [id number] [place] [address] 10 Dec, 2013 [facility] [address] [facility] [id number] [place] [address] Dec, 2013 [facility] [address] [id number] [place] [address] Dec, 2013 [facility] [address] [id number] [place] [address] Dec, 2013 [facility] [address] [facility] [id number] [place] [address] Dec, 2013 [facility] [address] [id number] [place] [address] Dec, 2013 [facility] [address] [id number] [place] [address] Nov, [facility] [address] [id number] [place] [address] Nov, [facility] [address] [id number] [place] [address] Nov, [facility] [address] [id number] [place] [address] Nov, [facility] [address] [id number] [place] [address] Nov, [facility] [address] [id number] [place] [address] Nov, [facility] [address] [id number] [place] [address] Nov, [facility] [address] [id number] [place] [address] Nov, [facility] [address] [id number] [place] [address] Nov, [facility] [address] [id number] [place] [address] Nov, [facility] [address] [id number] [place] [address] Nov, [facility] [address] [id number] [place] [address] Nov, [facility] [address] [id number] [place] [address] Nov, [facility] [address] [id number] [place] [address] Nov, [facility] [address] [id number] [place] [address] October, [facility] [address] [id number] [place] [address] October, [facility] [address] [id number] [place] [address] October, [facility] [address] [id number] [place] [address] October, [facility] [address] [id number] [place] [address] October, [facility] [address] [id number] [place] [address] October, [facility] [address] [id number] [place] [address] October, [facility] [address] [id number] [place] [address] October, [facility] [address] [id number] [place] [address] October, [facility] [address] [id number] [place] [address] October, [facility] [address] [id number] [place] [address] October, [facility] [address] [id number] [place] [address] October, [facility] [address] [id number] [place] [address] Sep, [facility] [address] [id number] [facility] [place] [address] Sep, [facility] [address] [facility] [id number] [place] [address] Sep, [facility] [address] [id number] [place] [address] Sep, [facility] [address] [id number] [place] [address] Sep, [facility] [address] [id number] [place] [address] Sep, [facility] [facility] [address] [id number] [place] [address] Aug, [facility] [place] [facility] [address] [id number] [place] [address] Aug, [facility] [place] [facility] [address] [id number] [place] [address] Aug, [facility] [place] [facility] [address] [id number] [place] [address] Aug, [facility] [place] [facility] [address] [id number] [place] [address] Aug, [facility] [place] [facility] [address] [id number] [place] [address] Aug, [facility] [place] [facility] [address] [id number] [place] [address] Jul, [facility] [place] [facility] [address] [id number] [place] [address] Jul, [facility] [place] [facility] [address] [id number] [place] [address] Jul, [facility] [place] [facility] [address] [id number] [place] [address] Jul, [facility] [place] [facility] [address] [id number] [place] [address] Jul, [facility] [place] [facility] [address] [id number] [place] [address] Jul, [facility] [place] [facility] [address] [facility] [id number] [place] [address] Jul, [facility] [place] [facility] [address] [id number] [facility] [place] [address] Jul, [facility] [place] [facility] [address] [id number] [place] [address] Jul, [facility] [place] [facility] [address] [id number] [place] [address] Jul, [facility] [place] [facility] [address] [id number] [place] [address] Jun, [facility] [place] [facility] [address] [id number] [place] [address] Jun, [facility] [place] [facility] [address] [id number] [place] [address] Jun, [facility] [place] [facility] [address] [id number] [place] [address] Jun, [facility] [place] [facility] [address] [id number] [place] [address] Jun, [facility] [place] [facility] [address] [id number] [place] [address] Jun, [facility] [place] [facility] [address] [id number] [place] [address] Jun, [facility] [place] [facility] [address] [id number] [place] [address] Jun, [facility] [place] [facility] [address] [id number] [place] [address] May, [facility] [place] [facility] [address] [id number] [place] [address] May, [facility] [place] [facility] [address] [id number] [place] [address] May, [facility] [place] [facility] [address] [id number] [place] [address] May, [facility] [place] [facility] [address] [id number] [place] [address] 05 May, 2012 [facility] [place] [facility] [address] [facility] [id number] [place] [address] May, [facility] [place] [facility] [address] [id number] [place] [address] May, [facility] [place] [facility] [address] [id number] [place] [address] May, [facility] [place] [facility] [address] [id number] [place] [address] Apr, [facility] [place] [facility] [address] [id number] [place] [address] Apr, [facility] [place] [facility] [address] [id number] [place] [address] Apr, [facility] [place] [facility] [address] [id number] [place] [address] Apr, [facility] [place] [facility] [address] [id number] [place] [address] Apr, [facility] [place] [facility] [address] [id number] [place] [address] Apr, [facility] [place] [facility] [address] [id number] [place] [address] Mar, [facility] [place] [facility] [address] [id number] [place] [address] Mar, [facility] [place] [facility] [address] [id number] [place] [address] Mar, [facility] [place] [facility] [address] [id number] [place] [address] Mar, [facility] [place] [facility] [address] [id number] [place] [address] Mar, [facility] [place] [facility] [address] [id number] [place] [address] Mar, [facility] [place] [facility] [address] [id number] [place] [address] Mar, [facility] [place] [facility] [address] [id number] [place] [address] Feb, 2012 [facility] [place] [facility] [address] [id number] [place] [address] 30 Feb, 2012 [facility] [place] [facility] [address] [id number] [place] [address] Feb, 2012 [facility] [place] [facility] [address] [id number] [place] [address] Feb, 2012 [facility] [place] [facility] [address] [facility] [id number] [place] [address] Feb, [facility] [place] [facility] [address] [id number] [place] [address] Feb, [facility] [place] [facility] [address] [id number] [place] [address] Jan, [facility] [place] [facility] [address] [id number] [place] [address] Jan, [facility] [place] [facility] [address] [id number] [place] [address] Jan, [facility] [place] [facility] [address] [id number] [place] [address] Jan, [facility] [place] [facility] [address] [id number] [place] [address] Jan, [facility] [place] [facility] [address] [id number] [place] [address] Jan, [facility] [place] [facility] [address] [id number] [place] [address] Jan, [facility] [place] [facility] [address] [id number] [place] [address] Jan, [facility] [place] [facility] [address] [id number] [place] [address] Jan, [facility] [place] [facility] [address] [id number] [place] [address] Dec, [facility] [place] [facility] [address] [id number] [place] [address] Dec, 2012 [facility] [place] [facility] [address] [facility] [id number] [facility] [place] [address] Dec, 2012 [facility] [place] [facility] [address] [facility] [id number] [facility] [place] [address] Dec, 2012 [facility] [place] [facility] [address] [id number] [facility] [place] [address] 17 Dec, 2012 [facility] [place] [facility] [address] [id number] [place] [address] 16 Dec, 2012 [facility] [place] [facility] [address] [facility] [id number] [facility] [place] [address] 15 Dec, 2012 [facility] [place] [facility] [address] [id number] [facility] [place] [address] Dec, [facility] [place] [facility] [address] [id number] [facility] [place] [address] Dec, 2012 [facility] [place] [facility] [address] [id number] [place] [address] Dec, [facility] [place] [facility] [address] [id number] [facility] [place] [address] Dec, [facility] [place] [facility] [address] [id number] [facility] [place] [address] Dec, [facility] [place] [facility] [address] [id number] [place] [address] Dec, [facility] [place] [facility] [address] [id number] [place] [address] Nov, [facility] [place] [facility] [address] [facility] [id number] [facility] [place] [address] Nov, [facility] [place] [facility] [address] [id number] [place] [address] Nov, [facility] [place] [facility] [address] [id number] [place] [address] Nov, [facility] [place] [facility] [address] [id number] [place] [address] October, [facility] [place] [facility] [address] [facility] [id number] [facility] [place] [address] October, [facility] [place] [facility] [address] [id number] [place] [address] October, [facility] [place] [facility] [address] [id number] [place] [address] October, [facility] [place] [facility] [address] [id number] [place] [address] October, [facility] [place] [facility] [address] [id number] [place] [address] October, [facility] [place] [facility] [address] [id number] [place] [address] Sep, [facility] [place] [facility] [address] [id number] [place] [address] Sep, [facility] [place] [facility] [address] [id number] [place] [address] Sep, [facility] [place] [facility] [address] [id number] [place] [address] Sep, [facility] [place] [facility] [address] [id number] [place] [address] Sep, [facility] [place] [facility] [address] [id number] [place] [address] 16 Sep, 2012 [facility] [place] [facility] [address] [id number] [place] [address] Sep, [facility] [place] [facility] [address] [id number] [place] [address] Sep, [facility] [place] [facility] [address] [id number] [place] [address] Sep, [facility] [place] [facility] [address] [id number] [place] [address] Sep, [facility] [place] [facility] [address] [id number] [place] [address] Sep, [facility] [place] [facility] [address] [id number] [place] [address] Aug, [facility] [address] [id number] [place] [address] 25 Aug, 2012 [facility] [address] [id number] [place] [address] 25 Aug, 2012 [facility] [place] [facility] [address] [id number] [place] [address] 21 Aug, 2012 [facility] [address] [id number] [place] [address] 19 Aug, 2012 [facility] [place] [facility] [address] [facility] [id number] [place] [address] 18 Aug, 2012 [facility] [address] [id number] [place] [address] 17 Aug, 2012 [facility] [place] [facility] [address] [id number] [place] [address] 15 Aug, 2012 [facility] [address] [id number] [place] [address] 15 Aug, 2012 [facility] [place] [facility] [address] [id number] [place] [address] 11 Aug, 2012 [facility] [place] [facility] [address] [id number] [place] [address] 11 Aug, 2012 [facility] [place] [facility] [address] [id number] [place] [address] 07 Aug, 2012 [facility] [address] [id number] [place] [address] 27 Jul, 2012 [facility] [place] [facility] [address] [id number] [place] [address] Jul, [facility] [place] [facility] [address] [id number] [place] [address] Jul, [facility] [place] [facility] [address] [id number] [place] [address] Jul, [facility] [place] [facility] [address] [id number] [place] [address] Jul, [facility] [place] [facility] [id number] [place] [address] Jul, 2012 [facility] [address] [id number] [place] [address] Jul, [facility] [id number] [place] [address] Jul, [facility] [id number] [place] [address] Jul, [facility] [place] [facility] [id number] [place] [address] Jul, [facility] [address] [id number] [place] [address] May, [facility] [place] [address] [id number] [id number] May, [facility] [id number] [place] [address] May, [facility] [place] [facility] [id number] [place] [address] May, [facility] [id number] [place] [address] May, [facility] [id number] [place] [address] Apr, [facility] [place] [address] [id number] [id number] Apr, [facility] [place] [facility] [id number] [place] [address] Apr, [facility] [place] [facility] [address] [id number] [place] [address] Mar, [facility] [address] [id number] [id number] Mar, [facility] [place] [facility] [id number] [place] [address] Mar, [facility] [address] [id number] [id number] Feb, [facility] [place] [facility] [address] [id number] [place] [address] 13 Feb, 2012 [facility] [place] [facility] [address] [id number] [place] [address] 13 Feb, 2012 [facility] [address] [id number] [place] [id number] 10 Feb, 2012 [facility] [address] [id number] [id number] 07 Feb, 2012 [facility] [address] [id number] [id number] Jan, [facility] [place] [facility] [address] [id number] [place] [address] Jan, [facility] [address] [id number] [id number] Jan, [facility] [address] [id number] [id number] Jan, [facility] [address] [id number] [id number] Jan, [facility] [place] [facility] [id number] [place] [address] Jan, [facility] [place] [facility] [id number] [place] [address] Jan, [facility] [place] [facility] [id number] [place] [address] Aug, [facility] [address] [id number] [id number] Aug, [facility] [place] [facility] [id number] [place] [address] Jul, [facility] [place] [facility] [address] [id number] [place] [address] Jul, [facility] [place] [facility] [id number] [place] [address] Jul, [facility] [address] [id number] [id number] Jul, [facility] [place] [facility] [id number] [place] [address] Jul, [facility] [address] [id number] [place] [id number] Jul, [facility] [place] [facility] [id number] [place] [address] Jul, [facility] [place] [address] [id number] [place] [id number] Jul, [facility] [place] [address] [id number] [place] [id number] Jul, [facility] [place] [address] [id number] [place] [id number] Jul, [facility] [id number] [place] [address] May, [facility] [id number] [place] [address] May, [facility] [id number] [place] [address] May, [facility] [address] [id number] [place] [address] Apr, [facility] [id number] [place] [address] Jan, [facility] [id number] [place] [address] Jan, [facility] [id number] [place] [address] Dec, [facility] [id number] [place] [address] 15 Dec, 2009 [facility] [id number] [place] [address] 16 May, 2009 [facility] [address] [id number] [place] [address] 21 Mar, 2009 [facility] [place] [facility] [id number] [place] [address] 13 Mar, 2009 [facility] [id number] [place] [address] 14 Jan, 2009 IMMUNIZATIONS No Known Immunizations [...]
[2020-01-28 12:30] LABS: ALANINE AMINOTRANSFERASE 28 U/L (0-55); ALBUMIN 4.7 GM/DL (3.2-4.5); ALKALINE PHOSPHATASE 63 U/L (40-136); BILIRUBIN,TOTAL 0.5 MG/DL (0.1-1.0); BUN/CREATININE RATIO 16; CALCIUM 9.5 MG/DL (8.5-10.1); CARBON DIOXIDE 26 MMOL/L (21-32); CHLORIDE 99 MMOL/L (98-107); CREATININE SERUM 0.75 MG/DL (0.60-1.30); GFR ESTIMATED > 60; GLUCOSE 94 MG/DL (70-105); MAGNESIUM 1.9 MG/DL (1.6-2.4); POTASSIUM 3.2 MMOL/L (3.6-5.0); SODIUM 139 MMOL/L (135-145); TOTAL PROTEIN 7.9 GM/DL (6.4-8.2)
--- OUTSIDE RECORDS SUMMARY | 2020-01-28 12:30 | XMS REPORT ---
Author Author Heydi Candelario Doctor Organization [facility] Address Unknown Phone Unavailable Care Team Providers Care Product Specialist Name Role Phone Migration, Doctor Unavailable Unavailable PROBLEMS Type Condition ICD9-CM Code WHV25-VG Code Onset Dates Condition S tatus SNOMED Code Problem Chronic pain syndrome G89.4 Active 132665281 Problem Sore throat J02.9 Active 31177786 3 Problem Choriocarcinoma C58 Active 1881 44216 Problem senior living 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 Z79.01 Active 623394626 Problem History of venous thromboembolism V12.51 Active 329650543 Problem Cellulitis of unspecified part of limb L03.119 Active 895954622 Problem Gastroesophageal reflux disease without esophagitis K21.9 Active 784709319 Problem History of pulmonary embolism Z86.711 Active 061975522 Problem Pseudotumor cerebri G93.2 Active 96543170 Problem History of DVT (deep vein thrombosis) Z86.718 Active 559817625 ALLERGIES No Information ENCOUNTERS Encounter Location Date Diagnosis [address] [address] Apr, 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 [place] [address] [address] Apr, 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 [place] [address] [address] Apr, Cellulitis of unspecified part of limb L 03.119 ; Allergic contact dermatitis due to adhesives L23.1 and Chronic pain syndrome G89.4 [place] [address] [address] Apr, [place] [address] [address] Apr, 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 ; Cellulitis of unspecified part of limb L03.119 ; Chronic pain syndrome G89.4 and Anxiety F41.9 [place] [address] [address] Apr, [place] [address] [address] Apr, [place] [address] [address] Mar, [address] [address] Mar, [address] [address] Mar, Sore throat J02.9 ; Gastroesophageal ref lux disease without esophagitis K21.9 ; Pseudotumor cerebri G93.2 ; Chronic pain syndrome G89.4 ; Choriocarcinoma C58 ; History of pulmonary embolism Z86.711 ; History of DVT (deep vein thrombosis) Z86.718 ; Anxiety F41.9 and Tachycardia R00.[address] [address] Feb, Anxiety 300.00 and Chronic pain 338.[address] [address] Feb, [address] [address] Feb, [address] [address] Jan, senior living 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 t herapy V58.61 and Dysuria 788.[address] [address] Jan, Dysuria 788.[address] [address] Jan, Anxiety 300.00 and Chronic pain 338.[address] [address] Jan, [place] [address] [address] Jan, [place] [address] [address] Jan, [facility] [address] [address] Dec, Weakness 780.79 [place] [address] [place] [id number] Dec, senior living 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 t herapy V58.61 [place] [address] [address] Dec, Palpitations 785.1 ; Tremor 781.0 ; Weak ness 780.79 ; 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 and Yeast vaginitis 112.1 [place] [address] [address] Dec, [place] [address] [address] Dec, Cervicalgia 723.1 ; Tachycardia 785.0 ; Pseudotumor cerebri 348.2 and History of venous thromboembolism V12.51 [place] [address] [address] Nov, [place] [address] [address] Nov, [place] [address] [address] Nov, Tachycardia 785.0 ; Pseudotumor cerebri 348.2 ; Anxiety 300.00 and History of venous thromboembolism V12.51 [place] [address] [address] Nov, [place] [address] [address] Nov, [place] [address] [address] Nov, [facility] [address] [id number] [place] [address] Nov, [facility] [address] [place] [id number] [place] [address] Nov, [facility] [address] [id number] [place] [address] 08 Nov, 2014 [facility] [id number] [place] [address] Nov, [facility] [address] [id number] [place] [address] October, [facility] [address] [address] [id number] [place] [address] October, [facility] [address] [id number] [place] [address] October, Pain in thoracic spine 724.1 and Tachyca rdia 785.0 [facility] [address] [id number] [place] [address] October, [facility] [id number] [place] [address] October, [facility] [id number] [place] [address] Sep, [facility] [id number] [place] [address] Sep, [facility] [address] [id number] [place] [address] Aug, [facility] [address] [id number] [place] [address] Aug, [facility] [id number] [place] [address] Aug, [facility] [address] [id number] [place] [address] Aug, [facility] [id number] [place] [address] 16 Aug, 2014 [facility] [address] [id number] [place] [address] 16 Aug, 2014 [facility] [address] [id number] [place] [address] Aug, 2014 [facility] [address] [id number] [place] [address] Aug, 2014 [facility] [address] [id number] [place] [address] Aug, 2014 [facility] [address] [id number] [place] [address] Aug, 2014 [facility] [address] [id number] [place] [address] Aug, 2014 [facility] [address] [id number] [place] [address] Aug, 2014 [facility] [address] [id number] [place] [address] Jul, 2014 [facility] [address] [id number] [place] [address] Jul, 2014 [facility] [address] [id number] [place] [address] Jul, 2014 [facility] [address] [id number] [place] [address] Jul, 2014 [facility] [address] [id number] [place] [address] Jul, 2014 [facility] [address] [id number] [place] [address] Jul, 2014 [facility] [address] [id number] [place] [address] Jul, 2014 [facility] [address] [id number] [place] [address] Jul, 2014 [facility] [address] [id number] [place] [address] Jul, 2014 [facility] [address] [id number] [place] [address] 20 Jul, 2014 [facility] [address] [facility] [id number] [place] [address] 19 Jul, 2014 [facility] [address] [id number] [place] [address] 19 Jul, 2014 [facility] [address] [id number] [place] [address] 17 Jul, 2014 [facility] [address] [id number] [place] [address] 17 Jul, 2014 [facility] [address] [id number] [place] [address] 16 Jul, 2014 [facility] [address] [id number] [place] [address] 16 Jul, 2014 [facility] [address] [id number] [place] [address] 16 Jul, 2014 [facility] [address] [id number] [place] [address] 16 Jul, 2014 [facility] [address] [id number] [place] [address] 13 Jul, 2014 [facility] [address] [id number] [place] [address] 13 Jul, 2014 [facility] [address] [id number] [place] [address] 13 Jul, 2014 [facility] [address] [id number] [place] [address] 13 Jul, 2014 [facility] [address] [id number] [place] [address] 12 Jul, 2014 [facility] [address] [id number] [place] [address] 12 Jul, 2014 [facility] [address] [id number] [place] [address] 12 Jul, 2014 [facility] [address] [id number] [place] [address] Jul, [facility] [address] [id number] [place] [address] Jul, [facility] [address] [id number] [place] [address] Jul, [facility] [address] [id number] [place] [address] Jul, [facility] [address] [id number] [place] [address] Jul, [facility] [address] [id number] [place] [address] Jun, [facility] [address] [id number] [place] [address] Jun, [facility] [address] [id number] [place] [address] Jun, [facility] [address] [id number] [place] [address] Jun, [facility] [address] [id number] [place] [address] Jun, [facility] [address] [id number] [place] [address] Jun, [facility] [address] [id number] [place] [address] Jun, [facility] [address] [id number] [place] [address] Jun, [facility] [address] [id number] [place] [address] Jun, [facility] [address] [id number] [place] [address] Jun, [facility] [address] [id number] [place] [address] Jun, [facility] [address] [id number] [place] [address] Jun, [facility] [address] [id number] [place] [address] Jun, [facility] [address] [id number] [place] [address] Jun, [facility] [address] [id number] [place] [address] 16 Jun, 2014 [facility] [address] [id number] [place] [address] Jun, [facility] [address] [id number] [place] [address] Jun, [facility] [address] [id number] [place] [address] Jun, [facility] [address] [id number] [place] [address] Jun, [facility] [address] [id number] [place] [address] Jun, [facility] [address] [id number] [place] [address] May, [facility] [address] [id number] [place] [address] May, [facility] [address] [id number] [place] [address] May, [facility] [address] [id number] [place] [address] May, [facility] [address] [id number] [place] [address] May, [facility] [address] [id number] [place] [address] May, [facility] [address] [id number] [place] [address] May, [facility] [address] [id number] [place] [address] May, [facility] [address] [id number] [place] [address] May, [facility] [address] [facility] [id number] [place] [address] May, [facility] [address] [id number] [place] [address] May, [facility] [address] [id number] [place] [address] 18 May, 2014 [facility] [address] [id number] [place] [address] 18 May, 2014 [facility] [address] [id number] [place] [address] 17 May, 2014 [facility] [address] [id number] [place] [address] 16 May, 2014 [facility] [address] [id number] [place] [address] 16 May, 2014 [facility] [address] [id number] [place] [address] 15 May, 2014 [facility] [address] [id number] [place] [address] 15 May, 2014 [facility] [address] [id number] [place] [address] May, [facility] [address] [id number] [place] [address] May, [facility] [address] [id number] [place] [address] May, [facility] [address] [id number] [place] [address] May, [facility] [address] [id number] [place] [address] May, [facility] [address] [id number] [place] [address] May, [facility] [address] [id number] [place] [address] May, [facility] [address] [id number] [place] [address] May, [facility] [address] [id number] [place] [address] May, [facility] [address] [id number] [place] [address] May, [facility] [address] [id number] [place] [address] May, [facility] [address] [id number] [place] [address] May, [facility] [address] [id number] [place] [address] May, [facility] [address] [id number] [place] [address] May, [facility] [address] [id number] [place] [address] May, [facility] [address] [id number] [place] [address] May, [facility] [address] [id number] [place] [address] Apr, [facility] [address] [id number] [place] [address] Apr, [facility] [address] [id number] [place] [address] Apr, [facility] [address] [id number] [place] [address] Apr, [facility] [address] [id number] [place] [address] Apr, [facility] [address] [id number] [place] [address] Apr, [facility] [address] [id number] [place] [address] Apr, [facility] [address] [id number] [place] [address] Apr, [facility] [address] [id number] [place] [address] Apr, [facility] [address] [id number] [place] [address] Apr, [facility] [address] [id number] [place] [address] Mar, 2013 [facility] [address] [id number] [place] [address] Mar, [facility] [address] [id number] [place] [address] Mar, [facility] [address] [id number] [place] [address] Mar, [facility] [address] [id number] [place] [address] Mar, [facility] [address] [id number] [place] [address] Mar, [facility] [address] [id number] [place] [address] Mar, [facility] [address] [id number] [place] [address] Mar, [facility] [address] [id number] [place] [address] 15 Mar, 2014 [facility] [address] [id number] [place] [address] 15 Mar, 2014 [facility] [address] [id number] [place] [address] 15 Mar, 2014 [facility] [address] [id number] [place] [address] 15 Mar, 2014 [facility] [address] [id number] [place] [address] Mar, [facility] [address] [id number] [place] [address] Mar, [facility] [address] [id number] [place] [address] Mar, 2013 [facility] [address] [id number] [place] [address] Mar, 2013 [facility] [address] [id number] [place] [address] Mar, 2013 [facility] [address] [id number] [place] [address] Mar, 2013 [facility] [address] [id number] [place] [address] Mar, 2013 [facility] [address] [id number] [place] [address] Mar, 2013 [facility] [address] [id number] [place] [address] 05 Sep, 2013 [facility] [address] [id number] [place] [address] 05 Sep, 2013 [facility] [address] [id number] [place] [address] 04 Sep, 2013 [facility] [address] [id number] [place] [address] 04 Sep, 2013 [facility] [address] [id number] [place] [address] Sep, 2013 [facility] [address] [id number] [place] [address] 03 Sep, 2013 [facility] [address] [id number] [place] [address] Sep, 2013 [facility] [address] [id number] [place] [address] Sep, 2013 [facility] [address] [id number] [place] [address] Sep, 2013 [facility] [address] [id number] [place] [address] Sep, 2013 [facility] [address] [id number] [place] [address] Jan, 2013 [facility] [address] [id number] [facility] [place] [address] Jan, [facility] [address] [id number] [facility] [place] [address] Jan, [facility] [address] [facility] [id number] [facility] [place] [address] Jan, [facility] [address] [facility] [id number] [place] [address] Jan, [facility] [address] [facility] [id number] [facility] [place] [address] Jan, [facility] [address] [id number] [facility] [place] [address] Jan, [facility] [address] [facility] [id number] [place] [address] Jan, [facility] [address] [id number] [place] [address] Jan, [facility] [address] [facility] [id number] [place] [address] Jan, [facility] [address] [id number] [place] [address] Jan, [facility] [address] [facility] [id number] [place] [address] Jan, [facility] [address] [id number] [place] [address] Dec, [facility] [address] [id number] [place] [address] Dec, [facility] [address] [id number] [place] [address] Dec, [facility] [address] [id number] [place] [address] Dec, [facility] [address] [facility] [id number] [place] [address] Dec, [facility] [address] [id number] [place] [address] Dec, [facility] [address] [facility] [id number] [place] [address] 10 Dec, 2013 [facility] [address] [facility] [id number] [place] [address] Dec, 2013 [facility] [address] [id number] [place] [address] Dec, 2013 [facility] [address] [id number] [place] [address] Dec, 2013 [facility] [address] [facility] [id number] [place] [address] Dec, 2013 [facility] [address] [id number] [place] [address] Dec, 2013 [facility] [address] [id number] [place] [address] Nov, [facility] [address] [id number] [place] [address] Nov, [facility] [address] [id number] [place] [address] Nov, [facility] [address] [id number] [place] [address] Nov, [facility] [address] [id number] [place] [address] Nov, [facility] [address] [id number] [place] [address] Nov, [facility] [address] [id number] [place] [address] Nov, [facility] [address] [id number] [place] [address] Nov, [facility] [address] [id number] [place] [address] Nov, [facility] [address] [id number] [place] [address] Nov, [facility] [address] [id number] [place] [address] Nov, [facility] [address] [id number] [place] [address] Nov, [facility] [address] [id number] [place] [address] Nov, [facility] [address] [id number] [place] [address] Nov, [facility] [address] [id number] [place] [address] October, [facility] [address] [id number] [place] [address] October, [facility] [address] [id number] [place] [address] October, [facility] [address] [id number] [place] [address] October, [facility] [address] [id number] [place] [address] October, [facility] [address] [id number] [place] [address] October, [facility] [address] [id number] [place] [address] October, [facility] [address] [id number] [place] [address] October, [facility] [address] [id number] [place] [address] October, [facility] [address] [id number] [place] [address] October, [facility] [address] [id number] [place] [address] October, [facility] [address] [id number] [place] [address] October, [facility] [address] [id number] [place] [address] Sep, [facility] [address] [id number] [facility] [place] [address] Sep, [facility] [address] [facility] [id number] [place] [address] Sep, [facility] [address] [id number] [place] [address] Sep, [facility] [address] [id number] [place] [address] Sep, [facility] [address] [id number] [place] [address] Sep, [facility] [address] [id number] [place] [address] Aug, [facility] [address] [id number] [place] [address] Aug, [facility] [address] [id number] [place] [address] Aug, [facility] [address] [id number] [place] [address] Aug, [facility] [address] [id number] [place] [address] Aug, [facility] [address] [id number] [place] [address] Aug, [facility] [address] [id number] [place] [address] Jul, [facility] [address] [id number] [place] [address] Jul, [facility] [address] [id number] [place] [address] Jul, [facility] [address] [id number] [place] [address] Jul, [facility] [address] [id number] [place] [address] Jul, [facility] [address] [id number] [place] [address] Jul, [facility] [address] [facility] [id number] [place] [address] Jul, [facility] [address] [id number] [facility] [place] [address] Jul, [facility] [address] [id number] [place] [address] Jul, [facility] [address] [id number] [place] [address] Jul, [facility] [address] [id number] [place] [address] Jun, [facility] [address] [id number] [place] [address] Jun, [facility] [address] [id number] [place] [address] Jun, [facility] [address] [id number] [place] [address] Jun, [facility] [address] [id number] [place] [address] Jun, [facility] [facility] [address] [id number] [place] [address] Jun, [facility] [place] [facility] [address] [id number] [place] [address] Jun, [facility] [place] [facility] [address] [id number] [place] [address] Jun, [facility] [place] [facility] [address] [id number] [place] [address] May, [facility] [place] [facility] [address] [id number] [place] [address] May, [facility] [place] [facility] [address] [id number] [place] [address] May, [facility] [place] [facility] [address] [id number] [place] [address] May, [facility] [place] [facility] [address] [id number] [place] [address] 05 May, 2012 [facility] [place] [facility] [address] [facility] [id number] [place] [address] May, [facility] [place] [facility] [address] [id number] [place] [address] May, [facility] [place] [facility] [address] [id number] [place] [address] May, [facility] [place] [facility] [address] [id number] [place] [address] Apr, [facility] [place] [facility] [address] [id number] [place] [address] Apr, [facility] [place] [facility] [address] [id number] [place] [address] Apr, [facility] [place] [facility] [address] [id number] [place] [address] Apr, [facility] [place] [facility] [address] [id number] [place] [address] Apr, [facility] [place] [facility] [address] [id number] [place] [address] Apr, [facility] [place] [facility] [address] [id number] [place] [address] Mar, [facility] [place] [facility] [address] [id number] [place] [address] Mar, [facility] [place] [facility] [address] [id number] [place] [address] Mar, [facility] [place] [facility] [address] [id number] [place] [address] Mar, [facility] [place] [facility] [address] [id number] [place] [address] Mar, [facility] [place] [facility] [address] [id number] [place] [address] Mar, [facility] [place] [facility] [address] [id number] [place] [address] Mar, [facility] [place] [facility] [address] [id number] [place] [address] Feb, 2012 [facility] [place] [facility] [address] [id number] [place] [address] 30 Feb, 2012 [facility] [place] [facility] [address] [id number] [place] [address] Feb, 2012 [facility] [place] [facility] [address] [id number] [place] [address] Feb, 2012 [facility] [place] [facility] [address] [facility] [id number] [place] [address] Feb, [facility] [place] [facility] [address] [id number] [place] [address] Feb, [facility] [place] [facility] [address] [id number] [place] [address] Jan, [facility] [place] [facility] [address] [id number] [place] [address] Jan, [facility] [place] [facility] [address] [id number] [place] [address] Jan, [facility] [place] [facility] [address] [id number] [place] [address] Jan, [facility] [place] [facility] [address] [id number] [place] [address] Jan, [facility] [place] [facility] [address] [id number] [place] [address] Jan, [facility] [place] [facility] [address] [id number] [place] [address] Jan, [facility] [place] [facility] [address] [id number] [place] [address] Jan, [facility] [place] [facility] [address] [id number] [place] [address] Jan, [facility] [place] [facility] [address] [id number] [place] [address] Dec, [facility] [place] [facility] [address] [id number] [place] [address] Dec, 2012 [facility] [place] [facility] [address] [facility] [id number] [facility] [place] [address] Dec, 2012 [facility] [place] [facility] [address] [facility] [id number] [facility] [place] [address] Dec, 2012 [facility] [place] [facility] [address] [id number] [facility] [place] [address] 17 Dec, 2012 [facility] [place] [facility] [address] [id number] [place] [address] 16 Dec, 2012 [facility] [place] [facility] [address] [facility] [id number] [facility] [place] [address] 15 Dec, 2012 [facility] [place] [facility] [address] [id number] [facility] [place] [address] Dec, [facility] [place] [facility] [address] [id number] [facility] [place] [address] Dec, 2012 [facility] [place] [facility] [address] [id number] [place] [address] Dec, [facility] [place] [facility] [address] [id number] [facility] [place] [address] Dec, [facility] [place] [facility] [address] [id number] [facility] [place] [address] Dec, [facility] [place] [facility] [address] [id number] [place] [address] Dec, [facility] [place] [facility] [address] [id number] [place] [address] Nov, [facility] [place] [facility] [address] [facility] [id number] [facility] [place] [address] Nov, [facility] [place] [facility] [address] [id number] [place] [address] Nov, [facility] [place] [facility] [address] [id number] [place] [address] Nov, [facility] [place] [facility] [address] [id number] [place] [address] October, [facility] [place] [facility] [address] [facility] [id number] [facility] [place] [address] October, [facility] [place] [facility] [address] [id number] [place] [address] October, [facility] [place] [facility] [address] [id number] [place] [address] October, [facility] [place] [facility] [address] [id number] [place] [address] October, [facility] [place] [facility] [address] [id number] [place] [address] October, [facility] [place] [facility] [address] [id number] [place] [address] Sep, [facility] [place] [facility] [address] [id number] [place] [address] Sep, [facility] [place] [facility] [address] [id number] [place] [address] Sep, [facility] [place] [facility] [address] [id number] [place] [address] Sep, [facility] [place] [facility] [address] [id number] [place] [address] Sep, [facility] [place] [facility] [address] [id number] [place] [address] 16 Sep, 2012 [facility] [place] [facility] [address] [id number] [place] [address] Sep, [facility] [place] [facility] [address] [id number] [place] [address] Sep, [facility] [place] [facility] [address] [id number] [place] [address] Sep, [facility] [place] [facility] [address] [id number] [place] [address] Sep, [facility] [place] [facility] [address] [id number] [place] [address] Sep, [facility] [place] [facility] [address] [id number] [place] [address] Aug, [facility] [address] [id number] [place] [address] 25 Aug, 2012 [facility] [facility] [address] [id number] [place] [address] 25 Aug, 2012 [facility] [place] [facility] [address] [id number] [place] [address] 21 Aug, 2012 [facility] [address] [id number] [place] [address] 19 Aug, 2012 [facility] [place] [facility] [address] [facility] [id number] [place] [address] 18 Aug, 2012 [facility] [facility] [address] [id number] [place] [address] 17 Aug, 2012 [facility] [place] [facility] [address] [id number] [place] [address] 15 Aug, 2012 [facility] [address] [id number] [place] [address] 15 Aug, 2012 [facility] [place] [facility] [address] [id number] [place] [address] 11 Aug, 2012 [facility] [place] [facility] [address] [id number] [place] [address] 11 Aug, 2012 [facility] [place] [facility] [address] [id number] [place] [address] 07 Aug, 2012 [facility] [address] [id number] [place] [address] 27 Jul, 2012 [facility] [place] [facility] [address] [id number] [place] [address] Jul, [facility] [place] [facility] [address] [id number] [place] [address] Jul, [facility] [place] [facility] [address] [id number] [place] [address] Jul, [facility] [place] [facility] [address] [id number] [place] [address] Jul, [facility] [place] [facility] [id number] [place] [address] Jul, 2012 [facility] [address] [id number] [place] [address] Jul, [facility] [id number] [place] [address] Jul, [facility] [id number] [place] [address] Jul, [facility] [place] [facility] [id number] [place] [address] Jul, [facility] [facility] [address] [id number] [place] [address] May, [facility] [address] [id number] [id number] May, [facility] [facility] [id number] [place] [address] May, [facility] [place] [facility] [id number] [place] [address] May, [facility] [id number] [place] [address] May, [facility] [id number] [place] [address] Apr, [facility] [place] [address] [facility] [address] [address] Apr, [facility] [place] [facility] [id number] [place] [address] Apr, [facility] [place] [facility] [address] [id number] [place] [address] Mar, [facility] [address] [facility] [id number] Mar, [facility] [place] [facility] [id number] [place] [address] Mar, [facility] [address] [facility] [id number] [id number] Feb, [facility] [place] [facility] [address] [id number] [place] [address] 13 Feb, 2012 [facility] [place] [facility] [address] [id number] [place] [address] 13 Feb, 2012 [facility] [address] [facility] [id number] [place] [address] 10 Feb, 2012 [facility] [address] [id number] [id number] 07 Feb, 2012 [facility] [id number] [address] Jan, [facility] [place] [facility] [address] [id number] [place] [address] Jan, [facility] [id number] [address] Jan, [facility] [id number] [id number] Jan, [facility] [id number] [address] Jan, [facility] [place] [facility] [id number] [place] [address] Jan, [facility] [place] [facility] [id number] [place] [address] Jan, [facility] [place] [facility] [id number] [place] [address] Aug, [facility] [address] [facility] [id number] Aug, [facility] [place] [facility] [id number] [place] [address] Jul, [facility] [place] [facility] [address] [id number] [place] [address] Jul, [facility] [place] [facility] [id number] [place] [address] Jul, [facility] [address] [id number] [id number] Jul, [facility] [place] [facility] [id number] [place] [address] Jul, [facility] [address] [facility] [id number] [place] [id number] Jul, [facility] [place] [facility] [id number] [place] [address] Jul, [facility] [place] [address] [facility] [id number] [place] [id number] Jul, [facility] [place] [address] [facility] [id number] [place] [id number] Jul, [facility] [address] [facility] [id number] [place] [id number] Jul, [facility] [place] [facility] [id number] [place] [address] May, [facility] [id number] [place] [address] May, [facility] [id number] [place] [address] May, [facility] [id number] [place] [address] Apr, [facility] [id number] [place] [address] Jan, [facility] [id number] [place] [address] Jan, [facility] [id number] [place] [address] Dec, [facility] [id number] [place] [address] 15 Dec, 2009 [facility] [id number] [place] [address] 16 May, 2009 [facility] [id number] [place] [address] 21 Mar, 2009 [facility] [place] [facility] [id number] [place] [address] 13 Mar, 2009 [facility] [id number] [place] [address] 14 Jan, 2009 IMMUNIZATIONS No Known Immunizations [...]
--- OUTSIDE RECORDS SUMMARY | 2020-01-28 12:30 | XMS REPORT ---
Author Author Heydi MARINO Organization [facility] Address [address] [place] [address] Care Team Providers Care Tariff Compiling Clerk Name Role Phone CELESTE MARINO Unavailable PROBLEMS Type Condition ICD9-CM Code [id number] Code Onset Dates Condition S tatus SNOMED Code Problem Chronic pain syndrome G89.4 Active 448909313 Problem Sore throat J02.9 Active 99325894 3 Problem Choriocarcinoma C58 Active 1881 26707 Problem custodial 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 Z79.01 Active 092783427 Problem History of venous thromboembolism V12.51 Active 999597760 Problem Cellulitis of unspecified part of limb L03.119 Active 981817328 Problem Gastroesophageal reflux disease without esophagitis K21.9 Active 061552326 Problem History of pulmonary embolism Z86.711 Active 947029257 Problem Pseudotumor cerebri G93.2 Active 61951560 Problem History of DVT (deep vein thrombosis) Z86.718 Active [id number] ALLERGIES No Information ENCOUNTERS Encounter Location Date Diagnosis [place] [id number] [place] [address] Apr, 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 of 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 Z79.01 [place] [id number] [place] [address] Apr, custodial 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 Z 79.01 [place] [address] [address] Apr, Cellulitis of unspecified part of limb L 03.119 ; Allergic contact dermatitis due to adhesives L23.1 and Chronic pain syndrome G89.4 [address] [address] [address] Apr, [place] [address] [address] Apr, custodial 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 Z 79.01 ; Cellulitis of unspecified part of limb L03.119 ; Chronic pain syndrome G89.4 and Anxiety F41.9 [place] [address] [address] Apr, [place] [address] [address] Apr, [place] [address] [address] Mar, [place] [address] [address] Mar, [address] [address] Mar, Sore throat J02.9 ; Gastroesophageal ref lux disease without esophagitis K21.9 ; Pseudotumor cerebri G93.2 ; Chronic pain syndrome G89.4 ; Choriocarcinoma C58 ; History of pulmonary embolism Z86.711 ; History of DVT (deep vein thrombosis) Z86.718 ; Anxiety F41.9 and Tachycardia R00.[address] [address] Feb, Anxiety 300.00 and Chronic pain 338.[address] [address] Feb, [address] [address] Feb, [place] [address] [address] Jan, custodial 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 t herapy V58.61 and Dysuria 788.[address] [address] Jan, Dysuria 788.1 [place] [address] [address] Jan, Anxiety 300.00 and Chronic pain 338.29 [place] [address] [address] Jan, [place] [address] [address] Jan, [place] [address] [address] Jan, [place] [address] [address] Dec, Weakness 780.79 [place] [address] [address] Dec, 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 t herapy V58.61 [place] [address] [address] Dec, Palpitations 785.1 ; Tremor 781.0 ; Weak ness 780.79 ; 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 therapy V58.61 and Yeast vaginitis 112.1 [place] [address] [address] Dec, [place] [address] [address] Dec, Cervicalgia 723.1 ; Tachycardia 785.0 ; Pseudotumor cerebri 348.2 and History of venous thromboembolism V12.51 [place] [address] [address] Nov, [place] [address] [address] Nov, [place] [address] [address] Nov, Tachycardia 785.0 ; Pseudotumor cerebri 348.2 ; Anxiety 300.00 and History of venous thromboembolism V12.51 [place] [address] [address] Nov, [place] [address] [address] Nov, [facility] [id number] [place] [address] 16 Nov, 2014 [facility] [id number] [place] [address] Nov, [facility] [id number] [place] [address] Nov, [facility] [id number] [place] [address] Nov, [facility] [id number] [place] [address] Nov, [facility] [id number] [place] [address] October, [facility] [id number] [place] [address] October, [facility] [id number] [place] [address] October, Pain in thoracic spine 724.1 and Tachyca rdia 785.0 [facility] [id number] [place] [address] October, [facility] [id number] [place] [address] October, [facility] [id number] [place] [address] Sep, [facility] [id number] [place] [address] Sep, [facility] [id number] [place] [address] Aug, [facility] [id number] [place] [address] Aug, [facility] [id number] [place] [address] Aug, [facility] [id number] [place] [address] Aug, [facility] [id number] [place] [address] Aug, [facility] [id number] [place] [address] Aug, 2014 [facility] [id number] [place] [address] Aug, [facility] [id number] [place] [address] Aug, [facility] [id number] [place] [address] Aug, [facility] [id number] [place] [address] Aug, [facility] [id number] [place] [address] Aug, [facility] [id number] [place] [address] Aug, [facility] [id number] [place] [address] Jul, 2014 [facility] [id number] [place] [address] Jul, 2014 [facility] [id number] [place] [address] Jul, 2014 [facility] [id number] [place] [address] Jul, 2014 [facility] [id number] [place] [address] Jul, 2014 [facility] [id number] [place] [address] Jul, 2014 [facility] [id number] [place] [address] Jul, 2014 [facility] [id number] [place] [address] Jul, 2014 [facility] [id number] [place] [address] 20 Jul, 2014 [facility] [id number] [place] [address] 20 Jul, 2014 [facility] [id number] [place] [address] 19 Jul, 2014 [facility] [id number] [place] [address] 19 Jul, 2014 [facility] [id number] [place] [address] 17 Jul, 2014 [facility] [id number] [place] [address] 17 Jul, 2014 [facility] [id number] [place] [address] 16 Jul, 2014 [facility] [id number] [place] [address] 16 Jul, 2014 [facility] [id number] [place] [address] 16 Jul, 2014 [facility] [id number] [place] [address] 16 Jul, 2014 [facility] [id number] [place] [address] 13 Jul, 2014 [facility] [id number] [place] [address] 13 Jul, 2014 [facility] [id number] [place] [address] 13 Jul, 2014 [facility] [id number] [place] [address] 13 Jul, 2014 [facility] [id number] [place] [address] 12 Jul, 2014 [facility] [id number] [place] [address] 12 Jul, 2014 [facility] [id number] [place] [address] Jul, [facility] [address] [facility] [id number] [place] [address] Jul, [facility] [id number] [place] [address] Jul, [facility] [id number] [place] [address] Jul, [facility] [id number] [place] [address] Jul, [facility] [id number] [place] [address] Jul, [facility] [id number] [place] [address] Jun, [facility] [id number] [place] [address] Jun, [facility] [id number] [place] [address] Jun, [facility] [id number] [place] [address] Jun, [facility] [id number] [place] [address] Jun, [facility] [id number] [place] [address] Jun, [facility] [id number] [place] [address] Jun, [facility] [id number] [place] [address] Jun, [facility] [id number] [place] [address] Jun, [facility] [id number] [place] [address] Jun, [facility] [id number] [place] [address] Jun, [facility] [id number] [place] [address] Jun, [facility] [id number] [place] [address] Jun, [facility] [id number] [place] [address] Jun, [facility] [id number] [place] [address] Jun, [facility] [id number] [place] [address] Jun, [facility] [id number] [place] [address] Jun, [facility] [id number] [place] [address] Jun, [facility] [id number] [place] [address] Jun, [facility] [id number] [place] [address] Jun, [facility] [id number] [place] [address] May, [facility] [id number] [place] [address] May, [facility] [id number] [place] [address] May, [facility] [id number] [place] [address] 31 May, 2014 [facility] [id number] [place] [address] May, [facility] [id number] [place] [address] May, [facility] [id number] [place] [address] May, [facility] [id number] [place] [address] May, [facility] [address] [facility] [id number] [place] [address] May, [facility] [address] [facility] [id number] [place] [address] May, [facility] [id number] [place] [address] May, [facility] [id number] [place] [address] 18 May, 2014 [facility] [address] [facility] [id number] [place] [address] 18 May, 2014 [facility] [id number] [place] [address] 17 May, 2014 [facility] [id number] [place] [address] 16 May, 2014 [facility] [id number] [place] [address] 16 May, 2014 [facility] [id number] [place] [address] 15 May, 2014 [facility] [id number] [place] [address] 15 May, 2014 [facility] [id number] [place] [address] 12 May, 2014 [facility] [id number] [place] [address] May, [facility] [id number] [place] [address] May, [facility] [id number] [place] [address] May, [facility] [id number] [place] [address] May, [facility] [id number] [place] [address] May, [facility] [id number] [place] [address] May, [facility] [id number] [place] [address] May, [facility] [id number] [place] [address] May, [facility] [id number] [place] [address] May, [facility] [id number] [place] [address] May, [facility] [id number] [place] [address] May, [facility] [id number] [place] [address] May, [facility] [id number] [place] [address] May, [facility] [id number] [place] [address] May, [facility] [id number] [place] [address] May, [facility] [id number] [place] [address] Apr, [facility] [id number] [place] [address] Apr, [facility] [id number] [place] [address] Apr, [facility] [id number] [place] [address] Apr, [facility] [id number] [place] [address] Apr, [facility] [id number] [place] [address] Apr, [facility] [id number] [place] [address] Apr, [facility] [id number] [place] [address] Apr, [facility] [id number] [place] [address] Apr, [facility] [id number] [place] [address] Apr, [facility] [id number] [place] [address] Mar, [facility] [id number] [place] [address] Mar, [facility] [id number] [place] [address] Mar, [facility] [id number] [place] [address] 31 Mar, 2014 [facility] [id number] [place] [address] 30 Mar, 2014 [facility] [id number] [place] [address] 30 Mar, 2014 [facility] [id number] [place] [address] Mar, [facility] [id number] [place] [address] 17 Mar, 2014 [facility] [id number] [place] [address] 15 Mar, 2014 [facility] [id number] [place] [address] 15 Mar, 2014 [facility] [id number] [place] [address] 15 Mar, 2014 [facility] [id number] [place] [address] 15 Mar, 2014 [facility] [id number] [place] [address] 09 Mar, 2014 [facility] [id number] [place] [address] Mar, 2013 [facility] [id number] [place] [address] Mar, 2013 [facility] [address] [facility] [id number] [place] [address] Mar, 2013 [facility] [id number] [place] [address] Mar, 2013 [facility] [id number] [place] [address] Mar, 2013 [facility] [address] [facility] [id number] [place] [address] Mar, 2013 [facility] [id number] [place] [address] Mar, 2013 [facility] [id number] [place] [address] 05 Sep, 2013 [facility] [id number] [place] [address] 05 Sep, 2013 [facility] [id number] [place] [address] 04 Sep, 2013 [facility] [id number] [place] [address] 04 Sep, 2013 [facility] [id number] [place] [address] 03 Sep, 2013 [facility] [id number] [place] [address] 03 Sep, 2013 [facility] [id number] [place] [address] 02 Sep, 2013 [facility] [id number] [place] [address] 02 Sep, 2013 [facility] [id number] [place] [address] Sep, 2013 [facility] [id number] [place] [address] 02 Sep, 2013 [facility] [id number] [place] [address] Jan, [facility] [address] [id number] [facility] [place] [address] Jan, [facility] [address] [facility] [id number] [place] [address] Jan, [facility] [address] [id number] [place] [address] Jan, [facility] [address] [id number] [place] [address] Jan, [facility] [address] [id number] [place] [address] Jan, [facility] [id number] [place] [address] Jan, [facility] [id number] [place] [address] Jan, [facility] [id number] [place] [address] Jan, [facility] [address] [id number] [place] [address] Jan, [facility] [id number] [place] [address] Jan, [facility] [id number] [place] [address] Jan, [facility] [address] [id number] [place] [address] Dec, [facility] [address] [id number] [place] [address] Dec, [facility] [address] [id number] [place] [address] Dec, [facility] [id number] [place] [address] Dec, [facility] [id number] [place] [address] Dec, [facility] [address] [facility] [id number] [place] [address] 14 Dec, 2013 [facility] [address] [facility] [id number] [place] [address] Dec, 2013 [facility] [id number] [place] [address] 10 Dec, 2013 [facility] [id number] [place] [address] Dec, 2013 [facility] [address] [facility] [id number] [place] [address] Dec, 2013 [facility] [id number] [place] [address] Dec, 2013 [facility] [id number] [place] [address] Dec, 2013 [facility] [id number] [place] [address] Nov, [facility] [id number] [place] [address] Nov, [facility] [id number] [place] [address] Nov, [facility] [id number] [place] [address] Nov, [facility] [id number] [place] [address] 17 Nov, 2013 [facility] [id number] [place] [address] Nov, [facility] [id number] [place] [address] Nov, [facility] [id number] [place] [address] Nov, [facility] [id number] [place] [address] 05 Nov, 2013 [facility] [id number] [place] [address] Nov, [facility] [address] [facility] [place] [id number] [place] [address] Nov, [facility] [address] [facility] [place] [id number] [place] [address] Nov, [facility] [address] [id number] [place] [address] Nov, [facility] [id number] [place] [address] Nov, [facility] [address] [facility] [place] [id number] [place] [address] October, [facility] [id number] [place] [address] October, [facility] [id number] [place] [address] October, [facility] [id number] [place] [address] October, [facility] [address] [id number] [place] [address] October, [facility] [address] [id number] [place] [address] October, [facility] [address] [id number] [place] [address] October, [facility] [address] [id number] [place] [address] October, [facility] [id number] [place] [address] October, [facility] [address] [id number] [place] [address] October, [facility] [address] [facility] [id number] [place] [address] October, [facility] [id number] [place] [address] October, [facility] [id number] [place] [address] Sep, [facility] [address] [facility] [place] [id number] [place] [address] Sep, [facility] [address] [facility] [id number] [place] [address] Sep, [facility] [id number] [place] [address] Sep, [facility] [address] [id number] [place] [address] Sep, [facility] [address] [id number] [place] [address] Sep, [facility] [address] [id number] [place] [address] Aug, [facility] [address] [id number] [place] [address] Aug, [facility] [address] [facility] [id number] [place] [address] Aug, [facility] [address] [id number] [place] [address] Aug, [facility] [id number] [place] [address] Aug, [facility] [address] [id number] [place] [address] Aug, [facility] [id number] [place] [address] Jul, [facility] [address] [id number] [place] [address] Jul, [facility] [address] [id number] [place] [address] Jul, [facility] [address] [id number] [place] [address] Jul, [facility] [address] [id number] [place] [address] Jul, [facility] [address] [id number] [place] [address] Jul, [facility] [address] [facility] [id number] [place] [address] Jul, [facility] [address] [id number] [place] [address] Jul, [facility] [address] [id number] [place] [address] Jul, [facility] [address] [id number] [place] [address] Jul, [facility] [address] [facility] [id number] [place] [address] Jun, [facility] [address] [id number] [place] [address] Jun, [facility] [address] [id number] [place] [address] Jun, [facility] [address] [id number] [place] [address] Jun, [facility] [id number] [place] [address] Jun, [facility] [id number] [place] [address] Jun, [facility] [address] [id number] [place] [address] Jun, [facility] [address] [id number] [place] [address] Jun, [facility] [address] [id number] [place] [address] May, [facility] [address] [id number] [place] [address] May, [facility] [address] [id number] [place] [address] May, [facility] [address] [id number] [place] [address] May, [facility] [place] [facility] [id number] [place] [address] May, [facility] [place] [facility] [id number] [place] [address] May, [facility] [place] [facility] [id number] [place] [address] May, [facility] [place] [facility] [id number] [place] [address] May, [facility] [place] [facility] [id number] [place] [address] Apr, [facility] [place] [facility] [id number] [place] [address] Apr, [facility] [place] [facility] [id number] [place] [address] Apr, [facility] [place] [facility] [id number] [place] [address] Apr, [facility] [place] [facility] [id number] [place] [address] Apr, [facility] [place] [facility] [id number] [place] [address] Apr, [facility] [place] [facility] [id number] [place] [address] Mar, [facility] [place] [facility] [id number] [place] [address] Mar, [facility] [place] [facility] [id number] [place] [address] Mar, [facility] [place] [facility] [id number] [place] [address] Mar, [facility] [place] [facility] [id number] [place] [address] Mar, [facility] [place] [facility] [id number] [place] [address] Mar, [facility] [place] [facility] [address] [id number] [place] [address] Mar, [facility] [place] [facility] [id number] [place] [address] 30 Feb, 2013 [facility] [place] [facility] [id number] [place] [address] 30 Feb, 2013 [facility] [place] [facility] [id number] [place] [address] Feb, [facility] [place] [facility] [id number] [place] [address] Feb, [facility] [place] [facility] [address] [id number] [place] [address] Feb, [facility] [place] [facility] [id number] [place] [address] Feb, [facility] [place] [facility] [id number] [place] [address] Jan, [facility] [place] [facility] [id number] [place] [address] Jan, [facility] [place] [facility] [id number] [place] [address] Jan, [facility] [place] [facility] [id number] [place] [address] Jan, [facility] [place] [facility] [id number] [place] [address] Jan, [facility] [place] [facility] [id number] [place] [address] Jan, [facility] [place] [facility] [id number] [place] [address] Jan, [facility] [place] [facility] [id number] [place] [address] Jan, [facility] [place] [facility] [id number] [place] [address] Jan, [facility] [place] [facility] [id number] [place] [address] Dec, 2012 [facility] [place] [facility] [address] [id number] [facility] [place] [address] Dec, 2012 [facility] [place] [facility] [address] [facility] [place] [id number] [facility] [place] [address] Dec, 2012 [facility] [place] [facility] [id number] [facility] [place] [address] 18 Dec, 2012 [facility] [place] [facility] [address] [facility] [place] [id number] [facility] [place] [address] 17 Dec, 2012 [facility] [place] [facility] [address] [facility] [id number] [facility] [place] [address] 16 Dec, 2012 [facility] [place] [facility] [address] [facility] [place] [id number] [facility] [place] [address] 15 Dec, 2012 [facility] [place] [facility] [id number] [place] [address] 09 Dec, 2012 [facility] [place] [facility] [id number] [facility] [place] [address] 08 Dec, 2012 [facility] [place] [facility] [address] [facility] [place] [id number] [place] [address] 08 Dec, 2012 [facility] [place] [facility] [id number] [place] [address] Dec, 2012 [facility] [place] [facility] [id number] [place] [address] Dec, 2012 [facility] [place] [facility] [id number] [place] [address] Dec, 2012 [facility] [place] [facility] [address] [facility] [id number] [facility] [place] [address] Nov, 2012 [facility] [place] [facility] [address] [id number] [place] [address] Nov, 2012 [facility] [place] [facility] [address] [facility] [id number] [place] [address] Nov, 2012 [facility] [place] [facility] [id number] [place] [address] Nov, 2012 [facility] [place] [facility] [id number] [place] [address] October, [facility] [place] [facility] [address] [id number] [place] [address] October, [facility] [place] [facility] [id number] [place] [address] October, [facility] [place] [facility] [address] [id number] [place] [address] October, [facility] [place] [facility] [address] [id number] [place] [address] October, [facility] [place] [facility] [address] [id number] [place] [address] October, [facility] [place] [facility] [id number] [place] [address] Sep, [facility] [place] [facility] [id number] [place] [address] Sep, [facility] [place] [facility] [id number] [place] [address] Sep, [facility] [place] [facility] [address] [id number] [place] [address] Sep, [facility] [place] [facility] [id number] [place] [address] Sep, [facility] [place] [facility] [id number] [place] [address] 16 Sep, 2012 [facility] [place] [facility] [id number] [place] [address] Sep, [facility] [place] [facility] [address] [id number] [place] [address] Sep, [facility] [place] [facility] [address] [id number] [place] [address] Sep, [facility] [place] [facility] [id number] [place] [address] Sep, [facility] [place] [facility] [id number] [place] [address] Sep, [facility] [place] [facility] [id number] [place] [address] Aug, [facility] [place] [facility] [id number] [place] [address] 25 Aug, 2012 [facility] [place] [facility] [id number] [place] [address] Aug, [facility] [place] [facility] [id number] [place] [address] Aug, [facility] [place] [facility] [id number] [place] [address] 19 Aug, 2012 [facility] [place] [facility] [id number] [place] [address] 18 Aug, 2012 [facility] [place] [facility] [id number] [place] [address] 17 Aug, 2012 [facility] [place] [facility] [id number] [place] [address] 15 Aug, 2012 [facility] [place] [facility] [id number] [place] [address] 15 Aug, 2012 [facility] [place] [facility] [id number] [place] [address] Aug, [facility] [place] [facility] [id number] [place] [address] 11 Aug, 2012 [facility] [place] [facility] [id number] [place] [address] 07 Aug, 2012 [facility] [place] [facility] [id number] [place] [address] 27 Jul, 2012 [facility] [place] [facility] [id number] [place] [address] Jul, [facility] [place] [facility] [id number] [place] [address] 26 Jul, 2012 [facility] [place] [facility] [id number] [place] [address] Jul, [facility] [place] [facility] [id number] [place] [address] Jul, [facility] [id number] [place] [address] Jul, [facility] [place] [facility] [id number] [place] [address] Jul, [facility] [place] [facility] [id number] [place] [address] Jul, [facility] [place] [facility] [id number] [place] [address] Jul, [facility] [place] [facility] [id number] [place] [address] Jul, [facility] [place] [facility] [id number] [place] [address] May, [facility] [address] [id number] [id number] May, [facility] [place] [facility] [id number] [place] [address] May, [facility] [place] [facility] [id number] [place] [address] May, [facility] [place] [facility] [id number] [place] [address] May, [facility] [id number] [place] [address] Apr, [facility] [address] [id number] [id number] Apr, [facility] [place] [facility] [id number] [place] [address] Apr, [facility] [place] [facility] [id number] [place] [address] Mar, [facility] [address] [id number] [id number] Mar, [facility] [place] [facility] [id number] [place] [address] Mar, [facility] [address] [id number] [id number] Feb, [facility] [place] [facility] [id number] [place] [address] Feb, [facility] [place] [facility] [id number] [place] [address] Feb, [facility] [address] [facility] [id number] 10 Feb, 2012 [facility] [address] [facility] [id number] 07 Feb, 2012 [facility] [address] [facility] [address] Jan, [facility] [place] [facility] [id number] [place] [address] Jan, [facility] [address] [facility] [id number] Jan, [facility] [address] [id number] [id number] Jan, [facility] [address] [id number] [id number] Jan, [facility] [place] [facility] [id number] [place] [address] Jan, [facility] [place] [facility] [id number] [place] [address] Jan, [facility] [place] [facility] [id number] [place] [address] Aug, [facility] [address] [id number] [id number] Aug, [facility] [place] [facility] [id number] [place] [address] Jul, [facility] [place] [facility] [id number] [place] [address] Jul, [facility] [place] [facility] [id number] [place] [address] Jul, [facility] [address] [facility]757[facility] [id number] Jul, [facility] [place] [facility] [id number] [place] [address] Jul, [facility] [place] [address] [id number] [id number] Jul, [facility] [place] [facility] [id number] [place] [address] Jul, [facility] [place] [address] [facility] [id number] Jul, [facility] [address] [facility] [id number] Jul, [facility] [address] [facility] [id number] Jul, [facility] [place] [facility] [id number] [place] [address] May, [facility] [place] [facility] [id number] [place] [address] May, [facility] [place] [facility] [id number] [place] [address] May, [facility] [place] [facility] [id number] [place] [address] Apr, [facility] [place] [facility] [id number] [place] [address] Jan, [facility] [place] [facility] [id number] [place] [address] Jan, [facility] [place] [facility] [id number] [place] [address] Dec, [facility] [place] [facility] [id number] [place] [address] 15 Dec, 2009 [facility] [place] [facility] [id number] [place] [address] 16 May, 2009 [facility] [place] [facility] [id number] [place] [address] Mar, [facility] [place] [facility] [id number] [place] [address] Mar, [facility] [place] [facility] [address] [facility] [id number] [place] [address] 14 Jan, 2009 IMMUNIZATIONS No Known Immunizations [...]
--- OUTSIDE RECORDS SUMMARY | 2020-01-28 12:30 | XMS REPORT ---
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 Name Role Phone Migration, Doctor Unavailable Unavailable PROBLEMS Type Condition ICD9-CM Code RUZ14-SS Code Onset Dates Condition S tatus SNOMED Code Problem Chronic pain syndrome G89.4 Active 163893445 Problem Sore throat J02.9 Active 03908996 3 Problem Choriocarcinoma C58 Active 1881 85545 Problem [facility] 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 Z79.01 Active 399790010 Problem History of venous thromboembolism V12.51 Active 990527959 Problem Cellulitis of unspecified part of limb L03.119 Active 108579137 Problem Gastroesophageal reflux disease without esophagitis K21.9 Active 444300670 Problem History of pulmonary embolism Z86.711 Active 979739796 Problem Pseudotumor cerebri G93.2 Active 19430131 Problem History of DVT (deep vein thrombosis) Z86.718 Active 639976154 ALLERGIES No Information ENCOUNTERS Encounter Location Date Diagnosis [address] [address] Apr, 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 [place] [address] [address] Apr, 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 [place] [address] [address] Apr, Cellulitis of unspecified part of limb L 03.119 ; Allergic contact dermatitis due to adhesives L23.1 and Chronic pain syndrome G89.4 [place] [address] [address] Apr, [place] [address] [address] Apr, 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 ; Cellulitis of unspecified part of limb L03.119 ; Chronic pain syndrome G89.4 and Anxiety F41.9 [place] [address] [address] Apr, [place] [address] [address] Apr, [place] [address] [address] Mar, [address] [address] Mar, [address] [address] Mar, Sore throat J02.9 ; Gastroesophageal ref lux disease without esophagitis K21.9 ; Pseudotumor cerebri G93.2 ; Chronic pain syndrome G89.4 ; Choriocarcinoma C58 ; History of pulmonary embolism Z86.711 ; History of DVT (deep vein thrombosis) Z86.718 ; Anxiety F41.9 and Tachycardia R00.[address] [address] Feb, Anxiety 300.00 and Chronic pain 338.[address] [address] Feb, [address] [address] Feb, [address] [address] Jan, [facility] 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 t herapy V58.61 and Dysuria 788.[address] [address] Jan, Dysuria 788.[address] [address] Jan, Anxiety 300.00 and Chronic pain 338.[address] [address] Jan, [place] [address] [address] Jan, [place] [address] [address] Jan, [facility] [address] [address] Dec, Weakness 780.79 [place] [address] [place] [id number] Dec, [facility] 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 t herapy V58.61 [place] [address] [address] Dec, Palpitations 785.1 ; Tremor 781.0 ; Weak ness 780.79 ; 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 and Yeast vaginitis 112.1 [place] [address] [address] Dec, [place] [address] [address] Dec, Cervicalgia 723.1 ; Tachycardia 785.0 ; Pseudotumor cerebri 348.2 and History of venous thromboembolism V12.51 [place] [address] [address] Nov, [place] [address] [address] Nov, [place] [address] [address] Nov, Tachycardia 785.0 ; Pseudotumor cerebri 348.2 ; Anxiety 300.00 and History of venous thromboembolism V12.51 [place] [address] [address] Nov, [place] [address] [address] Nov, [place] [address] [address] Nov, [facility] [address] [id number] [place] [address] Nov, [facility] [address] [place] [id number] [place] [address] Nov, [facility] [address] [id number] [place] [address] 08 Nov, 2014 [facility] [address] [place] [id number] [place] [address] Nov, [facility] [address] [id number] [place] [address] October, [facility] [address] [place] [id number] [place] [address] October, [facility] [address] [place] [id number] [place] [address] October, Pain in thoracic spine 724.1 and Tachyca rdia 785.0 [facility] [address] [place] [id number] [place] [address] October, [facility] [address] [place] [id number] [place] [address] October, [facility] [address] [place] [id number] [place] [address] Sep, [facility] [address] [place] [id number] [place] [address] Sep, [facility] [address] [place] [id number] [place] [address] Aug, [facility] [address] [id number] [place] [address] Aug, [facility] [address] [place] [id number] [place] [address] Aug, [facility] [address] [id number] [place] [address] Aug, [facility] [address] [place] [id number] [place] [address] 16 Aug, 2014 [facility] [address] [id number] [place] [address] 16 Aug, 2014 [facility] [address] [id number] [place] [address] Aug, 2014 [facility] [address] [id number] [place] [address] Aug, 2014 [facility] [address] [id number] [place] [address] Aug, 2014 [facility] [address] [id number] [place] [address] Aug, 2014 [facility] [address] [id number] [place] [address] Aug, 2014 [facility] [address] [id number] [place] [address] Aug, 2014 [facility] [address] [id number] [place] [address] Jul, 2014 [facility] [address] [id number] [place] [address] Jul, 2014 [facility] [address] [id number] [place] [address] Jul, 2014 [facility] [address] [id number] [place] [address] Jul, 2014 [facility] [address] [id number] [place] [address] Jul, 2014 [facility] [address] [id number] [place] [address] Jul, 2014 [facility] [address] [id number] [place] [address] Jul, 2014 [facility] [address] [id number] [place] [address] Jul, 2014 [facility] [address] [id number] [place] [address] Jul, 2014 [facility] [address] [id number] [place] [address] 20 Jul, 2014 [facility] [address] [facility] [id number] [place] [address] 19 Jul, 2014 [facility] [address] [id number] [place] [address] 19 Jul, 2014 [facility] [address] [id number] [place] [address] 17 Jul, 2014 [facility] [address] [id number] [place] [address] 17 Jul, 2014 [facility] [address] [id number] [place] [address] 16 Jul, 2014 [facility] [address] [id number] [place] [address] 16 Jul, 2014 [facility] [address] [id number] [place] [address] 16 Jul, 2014 [facility] [address] [id number] [place] [address] 16 Jul, 2014 [facility] [address] [id number] [place] [address] 13 Jul, 2014 [facility] [address] [id number] [place] [address] 13 Jul, 2014 [facility] [address] [id number] [place] [address] 13 Jul, 2014 [facility] [address] [id number] [place] [address] 13 Jul, 2014 [facility] [address] [id number] [place] [address] 12 Jul, 2014 [facility] [address] [id number] [place] [address] 12 Jul, 2014 [facility] [address] [id number] [place] [address] 12 Jul, 2014 [facility] [address] [id number] [place] [address] Jul, [facility] [address] [id number] [place] [address] Jul, [facility] [address] [id number] [place] [address] Jul, [facility] [address] [id number] [place] [address] Jul, [facility] [address] [id number] [place] [address] Jul, [facility] [address] [id number] [place] [address] Jun, [facility] [address] [id number] [place] [address] Jun, [facility] [address] [id number] [place] [address] Jun, [facility] [address] [id number] [place] [address] Jun, [facility] [address] [id number] [place] [address] Jun, [facility] [address] [id number] [place] [address] Jun, [facility] [address] [id number] [place] [address] Jun, [facility] [address] [id number] [place] [address] Jun, [facility] [address] [id number] [place] [address] Jun, [facility] [address] [id number] [place] [address] Jun, [facility] [address] [id number] [place] [address] Jun, [facility] [address] [id number] [place] [address] Jun, [facility] [address] [id number] [place] [address] Jun, [facility] [address] [id number] [place] [address] Jun, [facility] [address] [id number] [place] [address] 16 Jun, 2014 [facility] [address] [id number] [place] [address] Jun, [facility] [address] [id number] [place] [address] Jun, [facility] [address] [id number] [place] [address] Jun, [facility] [address] [id number] [place] [address] Jun, [facility] [address] [id number] [place] [address] Jun, [facility] [address] [id number] [place] [address] May, [facility] [address] [id number] [place] [address] May, [facility] [address] [id number] [place] [address] May, [facility] [address] [id number] [place] [address] May, [facility] [address] [id number] [place] [address] May, [facility] [address] [id number] [place] [address] May, [facility] [address] [id number] [place] [address] May, [facility] [address] [id number] [place] [address] May, [facility] [address] [id number] [place] [address] May, [facility] [address] [facility] [id number] [place] [address] May, [facility] [address] [id number] [place] [address] May, [facility] [address] [id number] [place] [address] 18 May, 2014 [facility] [address] [id number] [place] [address] 18 May, 2014 [facility] [address] [id number] [place] [address] 17 May, 2014 [facility] [address] [id number] [place] [address] 16 May, 2014 [facility] [address] [id number] [place] [address] 16 May, 2014 [facility] [address] [id number] [place] [address] 15 May, 2014 [facility] [address] [id number] [place] [address] 15 May, 2014 [facility] [address] [id number] [place] [address] May, [facility] [address] [id number] [place] [address] May, [facility] [address] [id number] [place] [address] May, [facility] [address] [id number] [place] [address] May, [facility] [address] [id number] [place] [address] May, [facility] [address] [id number] [place] [address] May, [facility] [address] [id number] [place] [address] May, [facility] [address] [id number] [place] [address] May, [facility] [address] [id number] [place] [address] May, [facility] [address] [id number] [place] [address] May, [facility] [address] [id number] [place] [address] May, [facility] [address] [id number] [place] [address] May, [facility] [address] [id number] [place] [address] May, [facility] [address] [id number] [place] [address] May, [facility] [address] [id number] [place] [address] May, [facility] [address] [id number] [place] [address] May, [facility] [address] [id number] [place] [address] Apr, [facility] [address] [id number] [place] [address] Apr, [facility] [address] [id number] [place] [address] Apr, [facility] [address] [id number] [place] [address] Apr, [facility] [address] [id number] [place] [address] Apr, [facility] [address] [id number] [place] [address] Apr, [facility] [address] [id number] [place] [address] Apr, [facility] [address] [id number] [place] [address] Apr, [facility] [address] [id number] [place] [address] Apr, [facility] [address] [id number] [place] [address] Apr, [facility] [address] [id number] [place] [address] Mar, 2013 [facility] [address] [id number] [place] [address] Mar, [facility] [address] [id number] [place] [address] Mar, [facility] [address] [id number] [place] [address] Mar, [facility] [address] [id number] [place] [address] Mar, [facility] [address] [id number] [place] [address] Mar, [facility] [address] [id number] [place] [address] Mar, [facility] [address] [id number] [place] [address] Mar, [facility] [address] [id number] [place] [address] 15 Mar, 2014 [facility] [address] [id number] [place] [address] 15 Mar, 2014 [facility] [address] [id number] [place] [address] 15 Mar, 2014 [facility] [address] [id number] [place] [address] 15 Mar, 2014 [facility] [address] [id number] [place] [address] Mar, [facility] [address] [id number] [place] [address] Mar, [facility] [address] [id number] [place] [address] Mar, 2013 [facility] [address] [id number] [place] [address] Mar, 2013 [facility] [address] [id number] [place] [address] Mar, 2013 [facility] [address] [id number] [place] [address] Mar, 2013 [facility] [address] [id number] [place] [address] Mar, 2013 [facility] [address] [id number] [place] [address] Mar, 2013 [facility] [address] [id number] [place] [address] 05 Sep, 2013 [facility] [address] [id number] [place] [address] 05 Sep, 2013 [facility] [address] [id number] [place] [address] 04 Sep, 2013 [facility] [address] [id number] [place] [address] 04 Sep, 2013 [facility] [address] [id number] [place] [address] Sep, 2013 [facility] [address] [id number] [place] [address] 03 Sep, 2013 [facility] [address] [id number] [place] [address] Sep, 2013 [facility] [address] [id number] [place] [address] Sep, 2013 [facility] [address] [id number] [place] [address] Sep, 2013 [facility] [address] [id number] [place] [address] Sep, 2013 [facility] [address] [id number] [place] [address] Jan, 2013 [facility] [address] [id number] [place] [address] Jan, [facility] [address] [id number] [place] [address] Jan, [facility] [address] [facility] [id number] [place] [address] Jan, [facility] [address] [facility] [id number] [place] [address] Jan, [facility] [address] [facility] [id number] [place] [address] Jan, [facility] [address] [id number] [place] [address] Jan, [facility] [address] [facility] [id number] [place] [address] Jan, [facility] [address] [id number] [place] [address] Jan, [facility] [address] [facility] [id number] [place] [address] Jan, [facility] [address] [id number] [place] [address] Jan, [facility] [address] [facility] [id number] [place] [address] Jan, [facility] [address] [id number] [place] [address] Dec, [facility] [address] [id number] [place] [address] Dec, [facility] [address] [id number] [place] [address] Dec, [facility] [address] [id number] [place] [address] Dec, [facility] [address] [facility] [id number] [place] [address] Dec, [facility] [address] [id number] [place] [address] Dec, [facility] [address] [facility] [id number] [place] [id number] 10 Dec, 2013 [facility] [address] [facility] [id number] [place] [address] Dec, 2013 [facility] [address] [id number] [place] [address] Dec, 2013 [facility] [address] [id number] [place] [address] Dec, 2013 [facility] [address] [facility] [id number] [place] [address] Dec, 2013 [facility] [address] [id number] [place] [address] Dec, 2013 [facility] [address] [id number] [place] [address] Nov, [facility] [address] [id number] [place] [address] Nov, [facility] [address] [id number] [place] [address] Nov, [facility] [address] [id number] [place] [address] Nov, [facility] [address] [id number] [place] [address] Nov, [facility] [address] [id number] [place] [address] Nov, [facility] [address] [id number] [place] [address] Nov, [facility] [address] [id number] [place] [address] Nov, [facility] [address] [id number] [place] [id number] Nov, [facility] [address] [id number] [place] [address] Nov, [facility] [address] [id number] [place] [address] Nov, [facility] [address] [id number] [place] [address] Nov, [facility] [address] [id number] [place] [address] Nov, [facility] [address] [id number] [place] [id number] Nov, [facility] [address] [id number] [place] [address] October, [facility] [address] [id number] [place] [address] October, [facility] [address] [id number] [place] [address] October, [facility] [address] [id number] [place] [address] October, [facility] [address] [id number] [place] [address] October, [facility] [address] [id number] [place] [address] October, [facility] [address] [id number] [place] [address] October, [facility] [address] [id number] [place] [address] October, [facility] [address] [id number] [place] [address] October, [facility] [address] [id number] [place] [id number] October, [facility] [address] [id number] [place] [address] October, [facility] [address] [id number] [place] [address] October, [facility] [address] [id number] [place] [id number] Sep, [facility] [address] [id number] [place] [id number] Sep, [facility] [address] [facility] [id number] [place] [id number] Sep, [facility] [address] [id number] [place] [address] Sep, [facility] [address] [id number] [place] [address] Sep, [facility] [address] [id number] [place] [address] Sep, [facility] [address] [id number] [place] [address] Aug, [facility] [address] [id number] [place] [address] Aug, [facility] [address] [id number] [place] [id number] Aug, [facility] [address] [id number] [place] [address] Aug, [facility] [address] [id number] [place] [id number] Aug, [facility] [address] [id number] [place] [address] Aug, [facility] [address] [id number] [place] [address] Jul, [facility] [address] [id number] [place] [address] Jul, [facility] [address] [id number] [place] [address] Jul, [facility] [address] [id number] [place] [id number] Jul, [facility] [address] [id number] [place] [address] Jul, [facility] [address] [id number] [place] [address] Jul, [facility] [address] [facility] [id number] [place] [address] Jul, [facility] [address] [id number] [place] [address] Jul, [facility] [address] [id number] [place] [address] Jul, [facility] [address] [id number] [place] [address] Jul, [facility] [address] [id number] [place] [address] Jun, [facility] [address] [id number] [place] [address] Jun, [facility] [address] [id number] [place] [id number] Jun, [facility] [place] [facility] [address] [id number] [place] [id number] Jun, [facility] [place] [facility] [address] [id number] [place] [address] Jun, [facility] [place] [facility] [address] [id number] [place] [address] Jun, [facility] [place] [facility] [address] [id number] [place] [address] Jun, [facility] [place] [facility] [address] [id number] [place] [address] Jun, [facility] [place] [facility] [address] [id number] [place] [address] May, [facility] [place] [facility] [address] [id number] [place] [address] May, [facility] [place] [facility] [address] [id number] [place] [address] May, [facility] [place] [facility] [address] [id number] [place] [address] May, [facility] [place] [facility] [address] [id number] [place] [address] 05 May, 2012 [facility] [place] [facility] [address] [facility] [id number] [place] [id number] May, [facility] [place] [facility] [address] [id number] [place] [address] May, [facility] [place] [facility] [address] [id number] [place] [address] May, [facility] [place] [facility] [address] [id number] [place] [address] Apr, [facility] [place] [facility] [address] [id number] [place] [address] Apr, [facility] [place] [facility] [address] [id number] [place] [address] Apr, [facility] [place] [facility] [address] [id number] [place] [address] Apr, [facility] [place] [facility] [address] [id number] [place] [address] Apr, [facility] [place] [facility] [address] [id number] [place] [address] Apr, [facility] [place] [facility] [address] [id number] [place] [address] Mar, [facility] [place] [facility] [address] [id number] [place] [address] Mar, [facility] [place] [facility] [address] [id number] [place] [address] Mar, [facility] [place] [facility] [address] [id number] [place] [address] Mar, [facility] [place] [facility] [address] [id number] [place] [address] Mar, [facility] [place] [facility] [address] [id number] [place] [address] Mar, [facility] [place] [facility] [address] [id number] [place] [address] Mar, [facility] [place] [facility] [address] [id number] [place] [id number] Feb, 2012 [facility] [place] [facility] [address] [id number] [place] [address] 30 Feb, 2012 [facility] [place] [facility] [address] [id number] [place] [id number] Feb, 2012 [facility] [place] [facility] [address] [id number] [place] [id number] Feb, 2012 [facility] [place] [facility] [address] [facility] [id number] [place] [address] Feb, [facility] [place] [facility] [address] [id number] [place] [address] Feb, [facility] [place] [facility] [address] [id number] [place] [address] Jan, [facility] [place] [facility] [address] [id number] [place] [address] Jan, [facility] [place] [facility] [address] [id number] [place] [address] Jan, [facility] [place] [facility] [address] [id number] [place] [address] Jan, [facility] [place] [facility] [address] [id number] [place] [address] Jan, [facility] [place] [facility] [address] [id number] [place] [address] Jan, [facility] [place] [facility] [address] [id number] [place] [address] Jan, [facility] [place] [facility] [address] [id number] [place] [address] Jan, [facility] [place] [facility] [address] [id number] [place] [address] Jan, [facility] [place] [facility] [address] [id number] [place] [address] Dec, [facility] [place] [facility] [address] [id number] [place] [address] Dec, 2012 [facility] [place] [facility] [address] [facility] [id number] [place] [address] Dec, 2012 [facility] [place] [facility] [address] [facility] [id number] [place] [address] Dec, 2012 [facility] [place] [facility] [address] [id number] [place] [address] 17 Dec, 2012 [facility] [place] [facility] [address] [id number] [place] [address] 16 Dec, 2012 [facility] [place] [facility] [address] [facility] [id number] [place] [address] 15 Dec, 2012 [facility] [place] [facility] [address] [id number] [place] [address] Dec, [facility] [place] [facility] [address] [id number] [place] [address] Dec, 2012 [facility] [place] [facility] [address] [id number] [place] [address] Dec, [facility] [place] [facility] [address] [id number] [place] [address] Dec, [facility] [place] [facility] [address] [id number] [place] [address] Dec, [facility] [place] [facility] [address] [id number] [place] [address] Dec, [facility] [place] [facility] [address] [id number] [place] [address] Nov, [facility] [place] [facility] [address] [facility] [id number] [place] [address] Nov, [facility] [place] [facility] [address] [id number] [place] [address] Nov, [facility] [place] [facility] [address] [id number] [place] [address] Nov, [facility] [place] [facility] [address] [id number] [place] [address] October, [facility] [place] [facility] [address] [facility] [id number] [place] [address] October, [facility] [place] [facility] [address] [id number] [place] [address] October, [facility] [place] [facility] [address] [id number] [place] [address] October, [facility] [place] [facility] [address] [id number] [place] [address] October, [facility] [place] [facility] [address] [id number] [place] [address] October, [facility] [place] [facility] [address] [id number] [place] [address] Sep, [facility] [place] [facility] [address] [id number] [place] [address] Sep, [facility] [place] [facility] [address] [id number] [place] [address] Sep, [facility] [place] [facility] [address] [id number] [place] [address] Sep, [facility] [place] [facility] [address] [id number] [place] [id number] Sep, [facility] [place] [facility] [address] [id number] [place] [id number] 16 Sep, 2012 [facility] [place] [facility] [address] [id number] [place] [address] Sep, [facility] [place] [facility] [address] [id number] [place] [address] Sep, [facility] [place] [facility] [address] [id number] [place] [address] Sep, [facility] [place] [facility] [address] [id number] [place] [address] Sep, [facility] [place] [facility] [address] [id number] [place] [address] Sep, [facility] [place] [facility] [address] [id number] [place] [address] Aug, [facility] [address] [id number] [place] [address] 25 Aug, 2012 [facility] [address] [id number] [place] [address] 25 Aug, 2012 [facility] [place] [facility] [address] [id number] [place] [address] 21 Aug, 2012 [facility] [address] [id number] [place] [address] 19 Aug, 2012 [facility] [place] [facility] [address] [facility] [id number] [place] [address] 18 Aug, 2012 [facility] [address] [id number] [place] [id number] 17 Aug, 2012 [facility] [place] [facility] [address] [id number] [place] [address] 15 Aug, 2012 [facility] [address] [id number] [place] [address] 15 Aug, 2012 [facility] [place] [facility] [address] [id number] [place] [address] 11 Aug, 2012 [facility] [place] [facility] [address] [id number] [place] [id number] 11 Aug, 2012 [facility] [place] [facility] [address] [id number] [place] [address] 07 Aug, 2012 [facility] [address] [id number] [place] [id number] 27 Jul, 2012 [facility] [place] [facility] [address] [id number] [place] [address] Jul, [facility] [place] [facility] [address] [id number] [place] [address] Jul, [facility] [place] [facility] [address] [id number] [place] [address] Jul, [facility] [place] [facility] [address] [id number] [place] [address] Jul, [facility] [place] [facility] [id number] [place] [address] Jul, 2012 [facility] [address] [id number] [place] [address] Jul, [facility] [id number] [place] [address] Jul, [facility] [id number] [place] [address] Jul, [facility] [place] [facility] [id number] [place] [address] Jul, [facility] [address] [id number] [place] [address] May, [facility] [place] [id number] [id number] May, [facility] [id number] [place] [address] May, [facility] [place] [facility] [id number] [place] [address] May, [facility] [id number] [place] [address] May, [facility] [id number] [place] [address] Apr, [facility] [place] [address] [id number] [id number] Apr, [facility] [place] [facility] [id number] [place] [address] Apr, [facility] [place] [facility] [address] [id number] [place] [address] Mar, [facility] [address] [id number] [id number] Mar, [facility] [place] [facility] [id number] [place] [address] Mar, [facility] [address] [facility] [id number] Feb, [facility] [place] [facility] [address] [id number] [place] [address] 13 Feb, 2012 [facility] [place] [facility] [address] [id number] [place] [address] 13 Feb, 2012 [facility] [address] [id number] [place] [id number] 10 Feb, 2012 [facility] [address] [facility] [facility] [id number] 07 Feb, 2012 [facility] [id number] [id number] Jan, [facility] [place] [facility] [address] [id number] [place] [address] Jan, [facility] [id number] [id number] Jan, [facility] [id number] [id number] Jan, [facility] [id number] [id number] Jan, [facility] [place] [facility] [id number] [place] [address] Jan, [facility] [place] [facility] [id number] [place] [address] Jan, [facility] [place] [facility] [id number] [place] [address] Aug, [facility] [address] [facility] [id number] Aug, [facility] [place] [facility] [id number] [place] [address] Jul, [facility] [place] [facility] [address] [id number] [place] [address] Jul, [facility] [place] [facility] [id number] [place] [address] Jul, [facility] [id number] [id number] Jul, [facility] [place] [facility] [id number] [place] [address] Jul, [facility] [address] [id number] [place] [id number] Jul, [facility] [place] [facility] [id number] [place] [address] Jul, [facility] [place] [address] [id number] [place] [id number] Jul, [facility] [place] [address] [id number] [place] [id number] Jul, [facility] [place] [address] [id number] [place] [id number] Jul, [facility] [id number] [place] [address] May, [facility] [id number] [place] [address] May, [facility] [id number] [place] [address] May, [facility] [id number] [place] [address] Apr, [facility] [id number] [place] [address] Jan, [facility] [id number] [place] [address] Jan, [facility] [id number] [place] [address] Dec, [facility] [id number] [place] [address] 15 Dec, 2009 [facility] [id number] [place] [address] 16 May, 2009 [facility] [id number] [place] [address] 21 Mar, 2009 [facility] [place] [facility] [id number] [place] [address] 13 Mar, 2009 [facility] [id number] [place] [address] 14 Jan, 2009 IMMUNIZATIONS No Known Immunizations SOCIAL HISTORY Never Assessed REASON FOR VISIT PLAN OF CARE VITAL SIGNS MEDICATIONS Unknown Medications RESULTS No Results PROCEDURES Procedure Date Ordered Result Body Site PROTHROMBIN TIME Jul 22, 2013 INSTRUCTIONS MEDICATIONS ADMINISTERED No Known Medications [...]
--- OUTSIDE RECORDS SUMMARY | 2020-01-28 12:31 | XMS REPORT ---
Author Author Heydi Candelario Doctor Organization [facility] Address Unknown Phone Unavailable Care Team Providers Care Awning Installer Name Role Phone Migration, Doctor Unavailable Unavailable PROBLEMS Type Condition ICD9-CM Code [id number] Code Onset Dates Condition S tatus SNOMED Code Problem Chronic pain syndrome G89.4 Active 630431661 Problem Sore throat J02.9 Active 87502075 3 Problem Choriocarcinoma C58 Active 1881 89312 Problem alf 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 Z79.01 Active 221086001 Problem History of venous thromboembolism V12.51 Active 238512188 Problem Cellulitis of unspecified part of limb L03.119 Active 183955172 Problem Gastroesophageal reflux disease without esophagitis K21.9 Active 433211292 Problem History of pulmonary embolism Z86.711 Active 805206849 Problem Pseudotumor cerebri G93.2 Active 32484443 Problem History of DVT (deep vein thrombosis) Z86.718 Active 891382702 ALLERGIES No Information ENCOUNTERS Encounter Location Date Diagnosis [address] [address] Apr, 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 [place] [address] [address] Apr, 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 [place] [address] [address] Apr, Cellulitis of unspecified part of limb L 03.119 ; Allergic contact dermatitis due to adhesives L23.1 and Chronic pain syndrome G89.4 [place] [address] [address] Apr, [place] [address] [address] Apr, 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 ; Cellulitis of unspecified part of limb L03.119 ; Chronic pain syndrome G89.4 and Anxiety F41.9 [place] [address] [address] Apr, [place] [address] [address] Apr, [place] [address] [address] Mar, [address] [address] Mar, [address] [address] Mar, Sore throat J02.9 ; Gastroesophageal ref lux disease without esophagitis K21.9 ; Pseudotumor cerebri G93.2 ; Chronic pain syndrome G89.4 ; Choriocarcinoma C58 ; History of pulmonary embolism Z86.711 ; History of DVT (deep vein thrombosis) Z86.718 ; Anxiety F41.9 and Tachycardia R00.[address] [address] Feb, Anxiety 300.00 and Chronic pain 338.[address] [address] Feb, [address] [address] Feb, [address] [address] Jan, alf 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 t herapy V58.61 and Dysuria 788.[address] [address] Jan, Dysuria 788.[address] [address] Jan, Anxiety 300.00 and Chronic pain 338.[address] [address] Jan, [place] [address] [address] Jan, [place] [address] [address] Jan, [facility] [address] [address] Dec, Weakness 780.79 [place] [address] [place] [id number] Dec, alf 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 t herapy V58.61 [place] [address] [address] Dec, Palpitations 785.1 ; Tremor 781.0 ; Weak ness 780.79 ; 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 and Yeast vaginitis 112.1 [place] [address] [address] Dec, [place] [address] [address] Dec, Cervicalgia 723.1 ; Tachycardia 785.0 ; Pseudotumor cerebri 348.2 and History of venous thromboembolism V12.51 [place] [address] [address] Nov, [place] [address] [address] Nov, [place] [address] [address] Nov, Tachycardia 785.0 ; Pseudotumor cerebri 348.2 ; Anxiety 300.00 and History of venous thromboembolism V12.51 [place] [address] [address] Nov, [place] [address] [address] Nov, [place] [address] [address] Nov, [facility] [address] [id number] [place] [address] Nov, [facility] [address] [place] [id number] [place] [address] Nov, [facility] [address] [id number] [place] [address] 08 Nov, 2014 [facility] [address] [place] [id number] [place] [address] Nov, [facility] [address] [id number] [place] [address] October, [facility] [address] [place] [id number] [place] [address] October, [facility] [address] [place] [id number] [place] [address] October, Pain in thoracic spine 724.1 and Tachyca rdia 785.0 [facility] [address] [place] [id number] [place] [address] October, [facility] [address] [place] [id number] [place] [address] October, [facility] [address] [place] [id number] [place] [address] Sep, [facility] [address] [place] [id number] [place] [address] Sep, [facility] [address] [place] [id number] [place] [address] Aug, [facility] [address] [id number] [place] [address] Aug, [facility] [address] [place] [id number] [place] [address] Aug, [facility] [address] [id number] [place] [address] Aug, [facility] [address] [place] [id number] [place] [address] 16 Aug, 2014 [facility] [address] [id number] [place] [address] 16 Aug, 2014 [facility] [address] [id number] [place] [address] Aug, 2014 [facility] [address] [id number] [place] [address] Aug, 2014 [facility] [address] [id number] [place] [address] Aug, 2014 [facility] [address] [id number] [place] [address] Aug, 2014 [facility] [address] [id number] [place] [address] Aug, 2014 [facility] [address] [id number] [place] [address] Aug, 2014 [facility] [address] [id number] [place] [address] Jul, 2014 [facility] [address] [id number] [place] [address] Jul, 2014 [facility] [address] [id number] [place] [address] Jul, 2014 [facility] [address] [id number] [place] [address] Jul, 2014 [facility] [address] [id number] [place] [address] Jul, 2014 [facility] [address] [id number] [place] [address] Jul, 2014 [facility] [address] [id number] [place] [address] Jul, 2014 [facility] [address] [id number] [place] [address] Jul, 2014 [facility] [address] [id number] [place] [address] Jul, 2014 [facility] [address] [id number] [place] [address] 20 Jul, 2014 [facility] [address] [facility] [id number] [place] [address] 19 Jul, 2014 [facility] [address] [id number] [place] [address] 19 Jul, 2014 [facility] [address] [id number] [place] [address] 17 Jul, 2014 [facility] [address] [id number] [place] [address] 17 Jul, 2014 [facility] [address] [id number] [place] [address] 16 Jul, 2014 [facility] [address] [id number] [place] [address] 16 Jul, 2014 [facility] [address] [id number] [place] [address] 16 Jul, 2014 [facility] [address] [id number] [place] [address] 16 Jul, 2014 [facility] [address] [id number] [place] [address] 13 Jul, 2014 [facility] [address] [id number] [place] [address] 13 Jul, 2014 [facility] [address] [id number] [place] [address] 13 Jul, 2014 [facility] [address] [id number] [place] [address] 13 Jul, 2014 [facility] [address] [id number] [place] [address] 12 Jul, 2014 [facility] [address] [id number] [place] [address] 12 Jul, 2014 [facility] [address] [id number] [place] [address] 12 Jul, 2014 [facility] [address] [id number] [place] [address] Jul, [facility] [address] [id number] [place] [address] Jul, [facility] [address] [id number] [place] [address] Jul, [facility] [address] [id number] [place] [address] Jul, [facility] [address] [id number] [place] [address] Jul, [facility] [address] [id number] [place] [address] Jun, [facility] [address] [id number] [place] [address] Jun, [facility] [address] [id number] [place] [address] Jun, [facility] [address] [id number] [place] [address] Jun, [facility] [address] [id number] [place] [address] Jun, [facility] [address] [id number] [place] [address] Jun, [facility] [address] [id number] [place] [address] Jun, [facility] [address] [id number] [place] [address] Jun, [facility] [address] [id number] [place] [address] Jun, [facility] [address] [id number] [place] [address] Jun, [facility] [address] [id number] [place] [address] Jun, [facility] [address] [id number] [place] [address] Jun, [facility] [address] [id number] [place] [address] Jun, [facility] [address] [id number] [place] [address] Jun, [facility] [address] [id number] [place] [address] 16 Jun, 2014 [facility] [address] [id number] [place] [address] Jun, [facility] [address] [id number] [place] [address] Jun, [facility] [address] [id number] [place] [address] Jun, [facility] [address] [id number] [place] [address] Jun, [facility] [address] [id number] [place] [address] Jun, [facility] [address] [id number] [place] [address] May, [facility] [address] [id number] [place] [address] May, [facility] [address] [id number] [place] [address] May, [facility] [address] [id number] [place] [address] May, [facility] [address] [id number] [place] [address] May, [facility] [address] [id number] [place] [address] May, [facility] [address] [id number] [place] [address] May, [facility] [address] [id number] [place] [address] May, [facility] [address] [id number] [place] [address] May, [facility] [address] [facility] [id number] [place] [address] May, [facility] [address] [id number] [place] [address] May, [facility] [address] [id number] [place] [address] 18 May, 2014 [facility] [address] [id number] [place] [address] 18 May, 2014 [facility] [address] [id number] [place] [address] 17 May, 2014 [facility] [address] [id number] [place] [address] 16 May, 2014 [facility] [address] [id number] [place] [address] 16 May, 2014 [facility] [address] [id number] [place] [address] 15 May, 2014 [facility] [address] [id number] [place] [address] 15 May, 2014 [facility] [address] [id number] [place] [address] May, [facility] [address] [id number] [place] [address] May, [facility] [address] [id number] [place] [address] May, [facility] [address] [id number] [place] [address] May, [facility] [address] [id number] [place] [address] May, [facility] [address] [id number] [place] [address] May, [facility] [address] [id number] [place] [address] May, [facility] [address] [id number] [place] [address] May, [facility] [address] [id number] [place] [address] May, [facility] [address] [id number] [place] [address] May, [facility] [address] [id number] [place] [address] May, [facility] [address] [id number] [place] [address] May, [facility] [address] [id number] [place] [address] May, [facility] [address] [id number] [place] [address] May, [facility] [address] [id number] [place] [address] May, [facility] [address] [id number] [place] [address] May, [facility] [address] [id number] [place] [address] Apr, [facility] [address] [id number] [place] [address] Apr, [facility] [address] [id number] [place] [address] Apr, [facility] [address] [id number] [place] [address] Apr, [facility] [address] [id number] [place] [address] Apr, [facility] [address] [id number] [place] [address] Apr, [facility] [address] [id number] [place] [address] Apr, [facility] [address] [id number] [place] [address] Apr, [facility] [address] [id number] [place] [address] Apr, [facility] [address] [id number] [place] [address] Apr, [facility] [address] [id number] [place] [address] Mar, 2013 [facility] [address] [id number] [place] [address] Mar, [facility] [address] [id number] [place] [address] Mar, [facility] [address] [id number] [place] [address] Mar, [facility] [address] [id number] [place] [address] Mar, [facility] [address] [id number] [place] [address] Mar, [facility] [address] [id number] [place] [address] Mar, [facility] [address] [id number] [place] [address] Mar, [facility] [address] [id number] [place] [address] 15 Mar, 2014 [facility] [address] [id number] [place] [address] 15 Mar, 2014 [facility] [address] [id number] [place] [address] 15 Mar, 2014 [facility] [address] [id number] [place] [address] 15 Mar, 2014 [facility] [address] [id number] [place] [address] Mar, [facility] [address] [id number] [place] [address] Mar, [facility] [address] [id number] [place] [address] Mar, 2013 [facility] [address] [id number] [place] [address] Mar, 2013 [facility] [address] [id number] [place] [address] Mar, 2013 [facility] [address] [id number] [place] [address] Mar, 2013 [facility] [address] [id number] [place] [address] Mar, 2013 [facility] [address] [id number] [place] [address] Mar, 2013 [facility] [address] [id number] [place] [address] 05 Sep, 2013 [facility] [address] [id number] [place] [address] 05 Sep, 2013 [facility] [address] [id number] [place] [address] 04 Sep, 2013 [facility] [address] [id number] [place] [address] 04 Sep, 2013 [facility] [address] [id number] [place] [address] Sep, 2013 [facility] [address] [id number] [place] [address] 03 Sep, 2013 [facility] [address] [id number] [place] [address] Sep, 2013 [facility] [address] [id number] [place] [address] Sep, 2013 [facility] [address] [id number] [place] [address] Sep, 2013 [facility] [address] [id number] [place] [address] Sep, 2013 [facility] [address] [id number] [place] [address] Jan, 2013 [facility] [address] [id number] [facility] [place] [address] Jan, [facility] [address] [id number] [facility] [place] [address] Jan, [facility] [address] [facility] [id number] [facility] [place] [address] Jan, [facility] [address] [facility] [id number] [place] [address] Jan, [facility] [address] [facility] [id number] [facility] [place] [address] Jan, [facility] [address] [id number] [facility] [place] [address] Jan, [facility] [address] [facility] [id number] [place] [address] Jan, [facility] [address] [id number] [place] [address] Jan, [facility] [address] [facility] [id number] [place] [address] Jan, [facility] [address] [id number] [place] [address] Jan, [facility] [address] [facility] [id number] [place] [address] Jan, [facility] [address] [id number] [place] [address] Dec, [facility] [address] [id number] [place] [address] Dec, [facility] [address] [id number] [place] [address] Dec, [facility] [address] [id number] [place] [address] Dec, [facility] [address] [facility] [id number] [place] [address] Dec, [facility] [address] [id number] [place] [address] Dec, [facility] [address] [facility] [id number] [place] [address] 10 Dec, 2013 [facility] [address] [facility] [id number] [place] [address] Dec, 2013 [facility] [address] [id number] [place] [address] Dec, 2013 [facility] [address] [id number] [place] [address] Dec, 2013 [facility] [address] [facility] [id number] [place] [address] Dec, 2013 [facility] [address] [id number] [place] [address] Dec, 2013 [facility] [address] [id number] [place] [address] Nov, [facility] [address] [id number] [place] [address] Nov, [facility] [address] [id number] [place] [address] Nov, [facility] [address] [id number] [place] [address] Nov, [facility] [address] [id number] [place] [address] Nov, [facility] [address] [id number] [place] [address] Nov, [facility] [address] [id number] [place] [address] Nov, [facility] [address] [id number] [place] [address] Nov, [facility] [address] [id number] [place] [address] Nov, [facility] [address] [id number] [place] [address] Nov, [facility] [address] [id number] [place] [address] Nov, [facility] [address] [id number] [place] [address] Nov, [facility] [address] [id number] [place] [address] Nov, [facility] [address] [id number] [place] [address] Nov, [facility] [address] [id number] [place] [address] October, [facility] [address] [id number] [place] [address] October, [facility] [address] [id number] [place] [address] October, [facility] [address] [id number] [place] [address] October, [facility] [address] [id number] [place] [address] October, [facility] [address] [id number] [place] [address] October, [facility] [address] [id number] [place] [address] October, [facility] [address] [id number] [place] [address] October, [facility] [address] [id number] [place] [address] October, [facility] [address] [facility] [id number] [place] [address] October, [facility] [place] [facility] [address] [id number] [place] [address] October, [facility] [place] [facility] [address] [id number] [place] [address] October, [facility] [place] [facility] [address] [id number] [place] [address] Sep, [facility] [place] [facility] [address] [id number] [facility] [place] [address] Sep, [facility] [place] [facility] [address] [facility] [id number] [place] [address] Sep, [facility] [place] [facility] [address] [id number] [place] [address] Sep, [facility] [place] [facility] [address] [id number] [place] [address] Sep, [facility] [place] [facility] [address] [id number] [place] [address] Sep, [facility] [place] [facility] [address] [id number] [place] [address] Aug, [facility] [place] [facility] [address] [id number] [place] [address] Aug, [facility] [place] [facility] [address] [id number] [place] [address] Aug, [facility] [place] [facility] [address] [id number] [place] [address] Aug, [facility] [place] [facility] [address] [id number] [place] [address] Aug, [facility] [place] [facility] [address] [id number] [place] [address] Aug, [facility] [place] [facility] [address] [id number] [place] [address] Jul, [facility] [place] [facility] [address] [id number] [place] [address] Jul, [facility] [place] [facility] [address] [id number] [place] [address] Jul, [facility] [place] [facility] [address] [id number] [place] [address] Jul, [facility] [place] [facility] [address] [id number] [place] [address] Jul, [facility] [place] [facility] [address] [id number] [place] [address] Jul, [facility] [place] [facility] [address] [facility] [id number] [place] [address] Jul, [facility] [place] [facility] [address] [id number] [facility] [place] [address] Jul, [facility] [place] [facility] [address] [id number] [place] [address] Jul, [facility] [place] [facility] [address] [id number] [place] [address] Jul, [facility] [place] [facility] [address] [id number] [place] [address] Jun, [facility] [place] [facility] [address] [id number] [place] [address] Jun, [facility] [place] [facility] [address] [id number] [place] [address] Jun, [facility] [place] [facility] [address] [id number] [place] [address] Jun, [facility] [place] [facility] [address] [id number] [place] [address] Jun, [facility] [place] [facility] [address] [id number] [place] [address] Jun, [facility] [place] [facility] [address] [id number] [place] [address] Jun, [facility] [place] [facility] [address] [id number] [place] [address] Jun, [facility] [place] [facility] [address] [id number] [place] [address] May, [facility] [place] [facility] [address] [id number] [place] [address] May, [facility] [place] [facility] [address] [id number] [place] [address] May, [facility] [place] [facility] [address] [id number] [place] [address] May, [facility] [place] [facility] [address] [id number] [place] [address] 05 May, 2012 [facility] [place] [facility] [address] [facility] [id number] [place] [address] May, [facility] [place] [facility] [address] [id number] [place] [address] May, [facility] [place] [facility] [address] [id number] [place] [address] May, [facility] [place] [facility] [address] [id number] [place] [address] Apr, [facility] [place] [facility] [address] [id number] [place] [address] Apr, [facility] [place] [facility] [address] [id number] [place] [address] Apr, [facility] [place] [facility] [address] [id number] [place] [address] Apr, [facility] [place] [facility] [address] [id number] [place] [address] Apr, [facility] [place] [facility] [address] [id number] [place] [address] Apr, [facility] [place] [facility] [address] [id number] [place] [address] Mar, [facility] [place] [facility] [address] [id number] [place] [address] Mar, [facility] [place] [facility] [address] [id number] [place] [address] Mar, [facility] [place] [facility] [address] [id number] [place] [address] Mar, [facility] [place] [facility] [address] [id number] [place] [address] Mar, [facility] [place] [facility] [address] [id number] [place] [address] Mar, [facility] [place] [facility] [address] [id number] [place] [address] Mar, [facility] [place] [facility] [address] [id number] [place] [address] Feb, 2012 [facility] [place] [facility] [address] [id number] [place] [address] 30 Feb, 2012 [facility] [place] [facility] [address] [id number] [place] [address] Feb, 2012 [facility] [place] [facility] [address] [id number] [place] [address] Feb, 2012 [facility] [place] [facility] [address] [facility] [id number] [place] [address] Feb, [facility] [place] [facility] [address] [id number] [place] [address] Feb, [facility] [place] [facility] [address] [id number] [place] [address] Jan, [facility] [place] [facility] [address] [id number] [place] [address] Jan, [facility] [place] [facility] [address] [id number] [place] [address] Jan, [facility] [place] [facility] [address] [id number] [place] [address] Jan, [facility] [place] [facility] [address] [id number] [place] [address] Jan, [facility] [place] [facility] [address] [id number] [place] [address] Jan, [facility] [place] [facility] [address] [id number] [place] [address] Jan, [facility] [place] [facility] [address] [id number] [place] [address] Jan, [facility] [place] [facility] [address] [id number] [place] [address] Jan, [facility] [place] [facility] [address] [id number] [place] [address] Dec, [facility] [place] [facility] [address] [id number] [place] [address] Dec, 2012 [facility] [place] [facility] [address] [facility] [id number] [facility] [place] [address] Dec, 2012 [facility] [place] [facility] [address] [facility] [id number] [facility] [place] [address] Dec, 2012 [facility] [place] [facility] [address] [id number] [facility] [place] [address] 17 Dec, 2012 [facility] [place] [facility] [address] [id number] [place] [address] 16 Dec, 2012 [facility] [place] [facility] [address] [facility] [id number] [facility] [place] [address] 15 Dec, 2012 [facility] [place] [facility] [address] [id number] [facility] [place] [address] Dec, [facility] [place] [facility] [address] [id number] [facility] [place] [address] Dec, 2012 [facility] [place] [facility] [address] [id number] [place] [address] Dec, [facility] [place] [facility] [address] [id number] [facility] [place] [address] Dec, [facility] [place] [facility] [address] [id number] [facility] [place] [address] Dec, [facility] [place] [facility] [address] [id number] [place] [address] Dec, [facility] [place] [facility] [address] [id number] [place] [address] Nov, [facility] [place] [facility] [address] [facility] [id number] [facility] [place] [address] Nov, [facility] [place] [facility] [address] [id number] [place] [address] Nov, [facility] [place] [facility] [address] [id number] [place] [address] Nov, [facility] [place] [facility] [address] [id number] [place] [address] October, [facility] [place] [facility] [address] [facility] [id number] [facility] [place] [address] October, [facility] [place] [facility] [address] [id number] [place] [address] October, [facility] [place] [facility] [address] [id number] [place] [address] October, [facility] [place] [facility] [address] [id number] [place] [address] October, [facility] [place] [facility] [address] [id number] [place] [address] October, [facility] [place] [facility] [address] [id number] [place] [address] Sep, [facility] [place] [facility] [address] [id number] [place] [address] Sep, [facility] [place] [facility] [address] [id number] [place] [address] Sep, [facility] [place] [facility] [address] [id number] [place] [address] Sep, [facility] [place] [facility] [address] [id number] [place] [address] Sep, [facility] [place] [facility] [address] [id number] [place] [address] 16 Sep, 2012 [facility] [place] [facility] [address] [id number] [place] [address] Sep, [facility] [place] [facility] [address] [id number] [place] [address] Sep, [facility] [place] [facility] [address] [id number] [place] [address] Sep, [facility] [place] [facility] [address] [id number] [place] [address] Sep, [facility] [place] [facility] [address] [id number] [place] [address] Sep, [facility] [place] [facility] [address] [id number] [place] [address] Aug, [facility] [address] [id number] [place] [address] 25 Aug, 2012 [facility] [address] [id number] [place] [address] 25 Aug, 2012 [facility] [place] [facility] [address] [id number] [place] [address] 21 Aug, 2012 [facility] [address] [id number] [place] [address] 19 Aug, 2012 [facility] [place] [facility] [address] [facility] [id number] [place] [address] 18 Aug, 2012 [facility] [address] [id number] [place] [address] 17 Aug, 2012 [facility] [place] [facility] [address] [id number] [place] [address] 15 Aug, 2012 [facility] [address] [id number] [place] [address] 15 Aug, 2012 [facility] [place] [facility] [address] [id number] [place] [address] 11 Aug, 2012 [facility] [place] [facility] [address] [id number] [place] [address] 11 Aug, 2012 [facility] [place] [facility] [address] [id number] [place] [address] 07 Aug, 2012 [facility] [address] [id number] [place] [address] 27 Jul, 2012 [facility] [place] [facility] [address] [id number] [place] [address] Jul, [facility] [place] [facility] [address] [id number] [place] [address] Jul, [facility] [place] [facility] [address] [id number] [place] [address] Jul, [facility] [place] [facility] [address] [id number] [place] [address] Jul, [facility] [place] [facility] [id number] [place] [address] Jul, 2012 [facility] [address] [id number] [place] [address] Jul, [facility] [id number] [place] [address] Jul, [facility] [id number] [place] [address] Jul, [facility] [place] [facility] [id number] [place] [address] Jul, [facility] [address] [id number] [place] [address] May, [facility] [place] [address] [id number] [id number] May, [facility] [id number] [place] [address] May, [facility] [place] [facility] [id number] [place] [address] May, [facility] [id number] [place] [address] May, [facility] [id number] [place] [address] Apr, [facility] [place] [address] [facility] [id number] Apr, [facility] [place] [facility] [id number] [place] [address] Apr, [facility] [place] [facility] [address] [id number] [place] [address] Mar, [facility] [address] [facility] [id number] Mar, [facility] [place] [facility] [id number] [place] [address] Mar, [facility] [address] [facility] [id number] Feb, [facility] [place] [facility] [address] [id number] [place] [address] 13 Feb, 2012 [facility] [place] [facility] [address] [id number] [place] [address] 13 Feb, 2012 [facility] [address] [id number] [place] [id number] 10 Feb, 2012 [facility] [address] [facility]07757[facility] [id number] 07 Feb, 2012 [facility] [address] [id number] [id number] Jan, [facility] [place] [facility] [address] [id number] [place] [address] Jan, [facility] [address] [id number] [id number] Jan, [facility] [address] [id number] [id number] Jan, [facility] [id number] [id number] Jan, [facility] [place] [facility] [id number] [place] [address] Jan, [facility] [place] [facility] [id number] [place] [address] Jan, [facility] [place] [facility] [id number] [place] [address] Aug, [facility] [address] [facility]07757[facility] [id number] Aug, [facility] [place] [facility] [id number] [place] [address] Jul, [facility] [place] [facility] [address] [id number] [place] [address] Jul, [facility] [place] [facility] [id number] [place] [address] Jul, [facility] [address] [id number] [id number] Jul, [facility] [place] [facility] [id number] [place] [address] Jul, [facility] [address] [id number] [place] [id number] Jul, [facility] [place] [facility] [id number] [place] [address] Jul, [facility] [place] [address] [id number] [id number] Jul, [facility] [place] [address] [id number] [place] [id number] Jul, [facility] [place] [address] [id number] [place] [id number] Jul, [facility] [place] [facility] [id number] [place] [address] May, [facility] [id number] [place] [address] May, [facility] [id number] [place] [address] May, [facility] [id number] [place] [address] Apr, [facility] [place] [facility] [id number] [place] [address] Jan, [facility] [id number] [place] [address] Jan, [facility] [place] [facility] [id number] [place] [address] Dec, [facility] [id number] [place] [address] 15 Dec, 2009 [facility] [id number] [place] [address] 16 May, 2009 [facility] [id number] [place] [address] 21 Mar, 2009 [facility] [place] [facility] [id number] [place] [address] 13 Mar, 2009 [facility] [id number] [place] [address] 14 Jan, 2009 IMMUNIZATIONS No Known Immunizations [...]
--- OUTSIDE RECORDS SUMMARY | 2020-01-28 12:31 | XMS REPORT ---
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 Name Role Phone Migration, Doctor Unavailable Unavailable PROBLEMS Type Condition ICD9-CM Code [id number] Code Onset Dates Condition S tatus SNOMED Code Problem Chronic pain syndrome G89.4 Active 129523738 Problem Sore throat J02.9 Active 71035457 3 Problem Choriocarcinoma C58 Active 1881 02731 Problem prison 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 Z79.01 Active 087556377 Problem History of venous thromboembolism V12.51 Active 162564176 Problem Cellulitis of unspecified part of limb L03.119 Active 131553667 Problem Gastroesophageal reflux disease without esophagitis K21.9 Active 919297983 Problem History of pulmonary embolism Z86.711 Active 568333428 Problem Pseudotumor cerebri G93.2 Active 26512726 Problem History of DVT (deep vein thrombosis) Z86.718 Active 718096104 ALLERGIES No Information ENCOUNTERS Encounter Location Date Diagnosis [address] [address] Apr, 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 [place] [address] [address] Apr, 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 [place] [address] [address] Apr, Cellulitis of unspecified part of limb L 03.119 ; Allergic contact dermatitis due to adhesives L23.1 and Chronic pain syndrome G89.4 [place] [address] [address] Apr, [place] [address] [address] Apr, 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 ; Cellulitis of unspecified part of limb L03.119 ; Chronic pain syndrome G89.4 and Anxiety F41.9 [place] [address] [address] Apr, [place] [address] [address] Apr, [place] [address] [address] Mar, [address] [address] Mar, [address] [address] Mar, Sore throat J02.9 ; Gastroesophageal ref lux disease without esophagitis K21.9 ; Pseudotumor cerebri G93.2 ; Chronic pain syndrome G89.4 ; Choriocarcinoma C58 ; History of pulmonary embolism Z86.711 ; History of DVT (deep vein thrombosis) Z86.718 ; Anxiety F41.9 and Tachycardia R00.[address] [address] Feb, Anxiety 300.00 and Chronic pain 338.[address] [address] Feb, [address] [address] Feb, [address] [address] Jan, prison 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 t herapy V58.61 and Dysuria 788.[address] [address] Jan, Dysuria 788.[address] [address] Jan, Anxiety 300.00 and Chronic pain 338.[address] [address] Jan, [place] [address] [address] Jan, [place] [address] [address] Jan, [facility] [address] [address] Dec, Weakness 780.79 [place] [address] [place] [id number] Dec, prison 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 t herapy V58.61 [place] [address] [address] Dec, Palpitations 785.1 ; Tremor 781.0 ; Weak ness 780.79 ; 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.61 and Yeast vaginitis 112.1 [place] [address] [address] Dec, [place] [address] [address] Dec, Cervicalgia 723.1 ; Tachycardia 785.0 ; Pseudotumor cerebri 348.2 and History of venous thromboembolism V12.51 [place] [address] [address] Nov, [place] [address] [address] Nov, [place] [address] [address] Nov, Tachycardia 785.0 ; Pseudotumor cerebri 348.2 ; Anxiety 300.00 and History of venous thromboembolism V12.51 [place] [address] [address] Nov, [place] [address] [address] Nov, [place] [address] [address] Nov, [facility] [address] [id number] [place] [address] Nov, [facility] [address] [place] [id number] [place] [address] Nov, [facility] [address] [id number] [place] [address] 08 Nov, 2014 [facility] [address] [id number] [place] [address] Nov, [facility] [address] [id number] [place] [address] October, [facility] [address] [address] [id number] [place] [address] October, [facility] [address] [id number] [place] [address] October, Pain in thoracic spine 724.1 and Tachyca rdia 785.0 [facility] [address] [id number] [place] [address] October, [facility] [address] [address] [id number] [place] [address] October, [facility] [address] [id number] [place] [address] Sep, [facility] [address] [id number] [place] [address] Sep, [facility] [address] [address] [id number] [place] [address] Aug, [facility] [address] [id number] [place] [address] Aug, [facility] [address] [address] [id number] [place] [address] Aug, [facility] [address] [id number] [place] [address] Aug, [facility] [address] [id number] [place] [address] 16 Aug, 2014 [facility] [address] [id number] [place] [address] 16 Aug, 2014 [facility] [address] [id number] [place] [address] Aug, 2014 [facility] [address] [id number] [place] [address] Aug, 2014 [facility] [address] [id number] [place] [address] Aug, 2014 [facility] [address] [id number] [place] [address] Aug, 2014 [facility] [address] [id number] [place] [address] Aug, 2014 [facility] [address] [id number] [place] [address] Aug, 2014 [facility] [address] [id number] [place] [address] Jul, 2014 [facility] [address] [id number] [place] [address] Jul, 2014 [facility] [address] [id number] [place] [address] Jul, 2014 [facility] [address] [id number] [place] [address] Jul, 2014 [facility] [address] [id number] [place] [address] Jul, 2014 [facility] [address] [id number] [place] [address] Jul, 2014 [facility] [address] [id number] [place] [address] Jul, 2014 [facility] [address] [id number] [place] [address] Jul, 2014 [facility] [address] [id number] [place] [address] Jul, 2014 [facility] [address] [id number] [place] [address] 20 Jul, 2014 [facility] [address] [facility] [id number] [place] [address] 19 Jul, 2014 [facility] [address] [id number] [place] [address] 19 Jul, 2014 [facility] [address] [id number] [place] [address] 17 Jul, 2014 [facility] [address] [id number] [place] [address] 17 Jul, 2014 [facility] [address] [id number] [place] [address] 16 Jul, 2014 [facility] [address] [id number] [place] [address] 16 Jul, 2014 [facility] [address] [id number] [place] [address] 16 Jul, 2014 [facility] [address] [id number] [place] [address] 16 Jul, 2014 [facility] [address] [id number] [place] [address] 13 Jul, 2014 [facility] [address] [id number] [place] [address] 13 Jul, 2014 [facility] [address] [id number] [place] [address] 13 Jul, 2014 [facility] [address] [id number] [place] [address] 13 Jul, 2014 [facility] [address] [id number] [place] [address] 12 Jul, 2014 [facility] [address] [id number] [place] [address] 12 Jul, 2014 [facility] [address] [id number] [place] [address] 12 Jul, 2014 [facility] [address] [id number] [place] [address] Jul, [facility] [address] [id number] [place] [address] Jul, [facility] [address] [id number] [place] [address] Jul, [facility] [address] [id number] [place] [address] Jul, [facility] [address] [id number] [place] [address] Jul, [facility] [address] [id number] [place] [address] Jun, [facility] [address] [id number] [place] [address] Jun, [facility] [address] [id number] [place] [address] Jun, [facility] [address] [id number] [place] [address] Jun, [facility] [address] [id number] [place] [address] Jun, [facility] [address] [id number] [place] [address] Jun, [facility] [address] [id number] [place] [address] Jun, [facility] [address] [id number] [place] [address] Jun, [facility] [address] [id number] [place] [address] Jun, [facility] [address] [id number] [place] [address] Jun, [facility] [address] [id number] [place] [address] Jun, [facility] [address] [id number] [place] [address] Jun, [facility] [address] [id number] [place] [address] Jun, [facility] [address] [id number] [place] [address] Jun, [facility] [address] [id number] [place] [address] 16 Jun, 2014 [facility] [address] [id number] [place] [address] Jun, [facility] [address] [id number] [place] [address] Jun, [facility] [address] [id number] [place] [address] Jun, [facility] [address] [id number] [place] [address] Jun, [facility] [address] [id number] [place] [address] Jun, [facility] [address] [id number] [place] [address] May, [facility] [address] [id number] [place] [address] May, [facility] [address] [id number] [place] [address] May, [facility] [address] [id number] [place] [address] May, [facility] [address] [id number] [place] [address] May, [facility] [address] [id number] [place] [address] May, [facility] [address] [id number] [place] [address] May, [facility] [address] [id number] [place] [address] May, [facility] [address] [id number] [place] [address] May, [facility] [address] [facility] [id number] [place] [address] May, [facility] [address] [id number] [place] [address] May, [facility] [address] [id number] [place] [address] 18 May, 2014 [facility] [address] [id number] [place] [address] 18 May, 2014 [facility] [address] [id number] [place] [address] 17 May, 2014 [facility] [address] [id number] [place] [address] 16 May, 2014 [facility] [address] [id number] [place] [address] 16 May, 2014 [facility] [address] [id number] [place] [address] 15 May, 2014 [facility] [address] [id number] [place] [address] 15 May, 2014 [facility] [address] [id number] [place] [address] May, [facility] [address] [id number] [place] [address] May, [facility] [address] [id number] [place] [address] May, [facility] [address] [id number] [place] [address] May, [facility] [address] [id number] [place] [address] May, [facility] [address] [id number] [place] [address] May, [facility] [address] [id number] [place] [address] May, [facility] [address] [id number] [place] [address] May, [facility] [address] [id number] [place] [address] May, [facility] [address] [id number] [place] [address] May, [facility] [address] [id number] [place] [address] May, [facility] [address] [id number] [place] [address] May, [facility] [address] [id number] [place] [address] May, [facility] [address] [id number] [place] [address] May, [facility] [address] [id number] [place] [address] May, [facility] [address] [id number] [place] [address] May, [facility] [address] [id number] [place] [address] Apr, [facility] [address] [id number] [place] [address] Apr, [facility] [address] [id number] [place] [address] Apr, [facility] [address] [id number] [place] [address] Apr, [facility] [address] [id number] [place] [address] Apr, [facility] [address] [id number] [place] [address] Apr, [facility] [address] [id number] [place] [address] Apr, [facility] [address] [id number] [place] [address] Apr, [facility] [address] [id number] [place] [address] Apr, [facility] [address] [id number] [place] [address] Apr, [facility] [address] [id number] [place] [address] Mar, 2013 [facility] [address] [id number] [place] [address] Mar, [facility] [address] [id number] [place] [address] Mar, [facility] [address] [id number] [place] [address] Mar, [facility] [address] [id number] [place] [address] Mar, [facility] [address] [id number] [place] [address] Mar, [facility] [address] [id number] [place] [address] Mar, [facility] [address] [id number] [place] [address] Mar, [facility] [address] [id number] [place] [address] 15 Mar, 2014 [facility] [address] [id number] [place] [address] 15 Mar, 2014 [facility] [address] [id number] [place] [address] 15 Mar, 2014 [facility] [address] [id number] [place] [address] 15 Mar, 2014 [facility] [address] [id number] [place] [address] Mar, [facility] [address] [id number] [place] [address] Mar, [facility] [address] [id number] [place] [address] Mar, 2013 [facility] [address] [id number] [place] [address] Mar, 2013 [facility] [address] [id number] [place] [address] Mar, 2013 [facility] [address] [id number] [place] [address] Mar, 2013 [facility] [address] [id number] [place] [address] Mar, 2013 [facility] [address] [id number] [place] [address] Mar, 2013 [facility] [address] [id number] [place] [address] 05 Sep, 2013 [facility] [address] [id number] [place] [address] 05 Sep, 2013 [facility] [address] [id number] [place] [address] 04 Sep, 2013 [facility] [address] [id number] [place] [address] 04 Sep, 2013 [facility] [address] [id number] [place] [address] Sep, 2013 [facility] [address] [id number] [place] [address] 03 Sep, 2013 [facility] [address] [id number] [place] [address] Sep, 2013 [facility] [address] [id number] [place] [address] Sep, 2013 [facility] [address] [id number] [place] [address] Sep, 2013 [facility] [address] [id number] [place] [address] Sep, 2013 [facility] [address] [id number] [place] [address] Jan, 2013 [facility] [address] [id number] [facility] [place] [address] Jan, [facility] [address] [id number] [facility] [place] [address] Jan, [facility] [address] [facility] [id number] [facility] [place] [address] Jan, [facility] [address] [facility] [id number] [place] [address] Jan, [facility] [address] [facility] [id number] [facility] [place] [address] Jan, [facility] [address] [id number] [facility] [place] [address] Jan, [facility] [address] [facility] [id number] [place] [address] Jan, [facility] [address] [id number] [place] [address] Jan, [facility] [address] [facility] [id number] [place] [address] Jan, [facility] [address] [id number] [place] [address] Jan, [facility] [address] [facility] [id number] [place] [address] Jan, [facility] [address] [id number] [place] [address] Dec, [facility] [address] [id number] [place] [address] Dec, [facility] [address] [id number] [place] [address] Dec, [facility] [address] [id number] [place] [address] Dec, [facility] [address] [facility] [id number] [place] [address] Dec, [facility] [address] [id number] [place] [address] Dec, [facility] [address] [facility] [id number] [place] [address] 10 Dec, 2013 [facility] [address] [facility] [id number] [place] [address] Dec, 2013 [facility] [address] [id number] [place] [address] Dec, 2013 [facility] [address] [id number] [place] [address] Dec, 2013 [facility] [address] [facility] [id number] [place] [address] Dec, 2013 [facility] [address] [id number] [place] [address] Dec, 2013 [facility] [address] [id number] [place] [address] Nov, [facility] [address] [id number] [place] [address] Nov, [facility] [address] [id number] [place] [address] Nov, [facility] [address] [id number] [place] [address] Nov, [facility] [address] [id number] [place] [address] Nov, [facility] [address] [id number] [place] [address] Nov, [facility] [address] [id number] [place] [address] Nov, [facility] [address] [id number] [place] [address] Nov, [facility] [address] [id number] [place] [address] Nov, [facility] [address] [id number] [place] [address] Nov, [facility] [address] [id number] [place] [address] Nov, [facility] [address] [id number] [place] [address] Nov, [facility] [address] [id number] [place] [address] Nov, [facility] [address] [id number] [place] [address] Nov, [facility] [address] [id number] [place] [address] October, [facility] [address] [id number] [place] [address] October, [facility] [address] [id number] [place] [address] October, [facility] [address] [id number] [place] [address] October, [facility] [address] [id number] [place] [address] October, [facility] [address] [id number] [place] [address] October, [facility] [address] [id number] [place] [address] October, [facility] [address] [id number] [place] [address] October, [facility] [address] [id number] [place] [address] October, [facility] [address] [id number] [place] [address] October, [facility] [address] [id number] [place] [address] October, [facility] [address] [id number] [place] [address] October, [facility] [address] [id number] [place] [address] Sep, [facility] [address] [id number] [facility] [place] [address] Sep, [facility] [address] [facility] [id number] [place] [address] Sep, [facility] [address] [id number] [place] [address] Sep, [facility] [address] [id number] [place] [address] Sep, [facility] [address] [id number] [place] [address] Sep, [facility] [address] [id number] [place] [address] Aug, [facility] [address] [id number] [place] [address] Aug, [facility] [address] [id number] [place] [address] Aug, [facility] [address] [id number] [place] [address] Aug, [facility] [address] [id number] [place] [address] Aug, [facility] [address] [id number] [place] [address] Aug, [facility] [address] [id number] [place] [address] Jul, [facility] [address] [id number] [place] [address] Jul, [facility] [address] [id number] [place] [address] Jul, [facility] [address] [id number] [place] [address] Jul, [facility] [address] [id number] [place] [address] Jul, [facility] [address] [id number] [place] [address] Jul, [facility] [address] [facility] [id number] [place] [address] Jul, [facility] [address] [id number] [facility] [place] [address] Jul, [facility] [address] [id number] [place] [address] Jul, [facility] [address] [id number] [place] [address] Jul, [facility] [address] [id number] [place] [address] Jun, [facility] [address] [id number] [place] [address] Jun, [facility] [address] [id number] [place] [address] Jun, [facility] [address] [id number] [place] [address] Jun, [facility] [address] [id number] [place] [address] Jun, [facility] [address] [id number] [place] [address] Jun, [facility] [address] [id number] [place] [address] Jun, [facility] [address] [id number] [place] [address] Jun, [facility] [address] [id number] [place] [address] May, [facility] [address] [id number] [place] [address] May, [facility] [address] [id number] [place] [address] May, [facility] [place] [facility] [address] [id number] [place] [address] May, [facility] [place] [facility] [address] [id number] [place] [address] 05 May, 2012 [facility] [place] [facility] [address] [facility] [id number] [place] [address] May, [facility] [place] [facility] [address] [id number] [place] [address] May, [facility] [place] [facility] [address] [id number] [place] [address] May, [facility] [place] [facility] [address] [id number] [place] [address] Apr, [facility] [place] [facility] [address] [id number] [place] [address] Apr, [facility] [place] [facility] [address] [id number] [place] [address] Apr, [facility] [place] [facility] [address] [id number] [place] [address] Apr, [facility] [place] [facility] [address] [id number] [place] [address] Apr, [facility] [place] [facility] [address] [id number] [place] [address] Apr, [facility] [place] [facility] [address] [id number] [place] [address] Mar, [facility] [place] [facility] [address] [id number] [place] [address] Mar, [facility] [place] [facility] [address] [id number] [place] [address] Mar, [facility] [place] [facility] [address] [id number] [place] [address] Mar, [facility] [place] [facility] [address] [id number] [place] [address] Mar, [facility] [place] [facility] [address] [id number] [place] [address] Mar, [facility] [place] [facility] [address] [id number] [place] [address] Mar, [facility] [place] [facility] [address] [id number] [place] [address] Feb, 2012 [facility] [place] [facility] [address] [id number] [place] [address] 30 Feb, 2012 [facility] [place] [facility] [address] [id number] [place] [address] Feb, 2012 [facility] [place] [facility] [address] [id number] [place] [address] Feb, 2012 [facility] [place] [facility] [address] [facility] [id number] [place] [address] Feb, [facility] [place] [facility] [address] [id number] [place] [address] Feb, [facility] [place] [facility] [address] [id number] [place] [address] Jan, [facility] [place] [facility] [address] [id number] [place] [address] Jan, [facility] [place] [facility] [address] [id number] [place] [address] Jan, [facility] [place] [facility] [address] [id number] [place] [address] Jan, [facility] [place] [facility] [address] [id number] [place] [address] Jan, [facility] [place] [facility] [address] [id number] [place] [address] Jan, [facility] [place] [facility] [address] [id number] [place] [address] Jan, [facility] [place] [facility] [address] [id number] [place] [address] Jan, [facility] [place] [facility] [address] [id number] [place] [address] Jan, [facility] [place] [facility] [address] [id number] [place] [address] Dec, [facility] [place] [facility] [address] [id number] [place] [address] Dec, 2012 [facility] [place] [facility] [address] [facility] [id number] [facility] [place] [address] Dec, 2012 [facility] [place] [facility] [address] [facility] [id number] [facility] [place] [address] Dec, 2012 [facility] [place] [facility] [address] [id number] [facility] [place] [address] 17 Dec, 2012 [facility] [place] [facility] [address] [id number] [place] [address] 16 Dec, 2012 [facility] [place] [facility] [address] [facility] [id number] [facility] [place] [address] 15 Dec, 2012 [facility] [place] [facility] [address] [id number] [facility] [place] [address] Dec, [facility] [place] [facility] [address] [id number] [facility] [place] [address] Dec, 2012 [facility] [place] [facility] [address] [id number] [place] [address] Dec, [facility] [place] [facility] [address] [id number] [facility] [place] [address] Dec, [facility] [place] [facility] [address] [id number] [facility] [place] [address] Dec, [facility] [place] [facility] [address] [id number] [place] [address] Dec, [facility] [place] [facility] [address] [id number] [place] [address] Nov, [facility] [place] [facility] [address] [facility] [id number] [facility] [place] [address] Nov, [facility] [place] [facility] [address] [id number] [place] [address] Nov, [facility] [place] [facility] [address] [id number] [place] [address] Nov, [facility] [place] [facility] [address] [id number] [place] [address] October, [facility] [place] [facility] [address] [facility] [id number] [facility] [place] [address] October, [facility] [place] [facility] [address] [id number] [place] [address] October, [facility] [place] [facility] [address] [id number] [place] [address] October, [facility] [place] [facility] [address] [id number] [place] [address] October, [facility] [place] [facility] [address] [id number] [place] [address] October, [facility] [place] [facility] [address] [id number] [place] [address] Sep, [facility] [place] [facility] [address] [id number] [place] [address] Sep, [facility] [place] [facility] [address] [id number] [place] [address] Sep, [facility] [place] [facility] [address] [id number] [place] [address] Sep, [facility] [place] [facility] [address] [id number] [place] [address] Sep, [facility] [place] [facility] [address] [id number] [place] [address] 16 Sep, 2012 [facility] [place] [facility] [address] [id number] [place] [address] Sep, [facility] [place] [facility] [address] [id number] [place] [address] Sep, [facility] [place] [facility] [address] [id number] [place] [address] Sep, [facility] [place] [facility] [address] [id number] [place] [address] Sep, [facility] [place] [facility] [address] [id number] [place] [address] Sep, [facility] [place] [facility] [address] [id number] [place] [address] Aug, [facility] [address] [id number] [place] [address] 25 Aug, 2012 [facility] [address] [id number] [place] [address] 25 Aug, 2012 [facility] [place] [facility] [address] [id number] [place] [address] 21 Aug, 2012 [facility] [address] [id number] [place] [address] 19 Aug, 2012 [facility] [place] [facility] [address] [facility] [id number] [place] [address] 18 Aug, 2012 [facility] [address] [id number] [place] [address] 17 Aug, 2012 [facility] [place] [facility] [address] [id number] [place] [address] 15 Aug, 2012 [facility] [address] [id number] [place] [address] 15 Aug, 2012 [facility] [place] [facility] [address] [id number] [place] [address] 11 Aug, 2012 [facility] [place] [facility] [address] [id number] [place] [address] 11 Aug, 2012 [facility] [place] [facility] [address] [id number] [place] [address] 07 Aug, 2012 [facility] [address] [id number] [place] [address] 27 Jul, 2012 [facility] [place] [facility] [address] [id number] [place] [address] Jul, [facility] [place] [facility] [address] [id number] [place] [address] Jul, [facility] [place] [facility] [address] [id number] [place] [address] Jul, [facility] [place] [facility] [address] [id number] [place] [address] Jul, [facility] [place] [facility] [id number] [place] [address] Jul, 2012 [facility] [address] [id number] [place] [address] Jul, [facility] [id number] [place] [address] Jul, [facility] [id number] [place] [address] Jul, [facility] [place] [facility] [id number] [place] [address] Jul, [facility] [address] [id number] [place] [address] May, [facility] [place] [address] [id number] [id number] May, [facility] [id number] [place] [address] May, [facility] [place] [facility] [id number] [place] [address] May, [facility] [id number] [place] [address] May, [facility] [id number] [place] [address] Apr, [facility] [place] [address] [id number] [id number] Apr, [facility] [place] [facility] [id number] [place] [address] Apr, [facility] [place] [facility] [address] [id number] [place] [address] Mar, [facility] [address] [facility] [id number] Mar, [facility] [place] [facility] [id number] [place] [address] Mar, [facility] [address] [id number] [id number] Feb, [facility] [place] [facility] [address] [id number] [place] [address] 13 Feb, 2012 [facility] [place] [facility] [address] [id number] [place] [address] 13 Feb, 2012 [facility] [address] [id number] [place] [id number] 10 Feb, 2012 [facility] [address] [id number] [id number] 07 Feb, 2012 [facility] [address] [id number] [address] Jan, [facility] [place] [facility] [address] [id number] [place] [address] Jan, [facility] [address] [id number] [id number] Jan, [facility] [address] [id number] [id number] Jan, [facility] [address] [id number] [id number] Jan, [facility] [place] [facility] [id number] [place] [address] Jan, [facility] [place] [facility] [id number] [place] [address] Jan, [facility] [place] [facility] [id number] [place] [address] Aug, [facility] [address] [id number] [id number] Aug, [facility] [place] [facility] [id number] [place] [address] Jul, [facility] [place] [facility] [address] [id number] [place] [address] Jul, [facility] [place] [facility] [id number] [place] [address] Jul, [facility] [address] [id number] [id number] Jul, [facility] [place] [facility] [id number] [place] [address] Jul, [facility] [address] [id number] [place] [id number] Jul, [facility] [place] [facility] [id number] [place] [address] Jul, [facility] [place] [address] [id number] [place] [id number] Jul, [facility] [place] [address] [id number] [place] [id number] Jul, [facility] [place] [address] [id number] [place] [id number] Jul, [facility] [id number] [place] [address] May, [facility] [id number] [place] [address] May, [facility] [id number] [place] [address] May, [facility] [id number] [place] [address] Apr, [facility] [id number] [place] [address] Jan, [facility] [id number] [place] [address] Jan, [facility] [id number] [place] [address] Dec, [facility] [id number] [place] [address] 15 Dec, 2009 [facility] [id number] [place] [address] 16 May, 2009 [facility] [address] [id number] [place] [address] 21 Mar, 2009 [facility] [place] [facility] [id number] [place] [address] 13 Mar, 2009 [facility] [id number] [place] [address] 14 Jan, 2009 IMMUNIZATIONS No Known Immunizations [...]
--- OUTSIDE RECORDS SUMMARY | 2020-01-28 12:31 | XMS REPORT ---
Author Author Heydi Candelario Doctor Organization [facility] Address Unknown Phone Unavailable Care Team Providers Care Assistant Designer Name Role Phone Migration, Doctor Unavailable Unavailable PROBLEMS Type Condition ICD9-CM Code QBU16-PN Code Onset Dates Condition S tatus SNOMED Code Problem Chronic pain syndrome G89.4 Active 538554810 Problem Sore throat J02.9 Active 26364353 3 Problem Choriocarcinoma C58 Active 1881 57375 Problem detention 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 Z79.01 Active 632878520 Problem History of venous thromboembolism V12.51 Active 346057721 Problem Cellulitis of unspecified part of limb L03.119 Active 254543854 Problem Gastroesophageal reflux disease without esophagitis K21.9 Active 569863475 Problem History of pulmonary embolism Z86.711 Active 375124599 Problem Pseudotumor cerebri G93.2 Active 90862865 Problem History of DVT (deep vein thrombosis) Z86.718 Active [id number] ALLERGIES No Information ENCOUNTERS Encounter Location Date Diagnosis [address] [address] Apr, 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 [place] [address] [address] Apr, 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 [place] [address] [address] Apr, Cellulitis of unspecified part of limb L 03.119 ; Allergic contact dermatitis due to adhesives L23.1 and Chronic pain syndrome G89.4 [place] [address] [address] Apr, [place] [address] [address] Apr, 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 ; Cellulitis of unspecified part of limb L03.119 ; Chronic pain syndrome G89.4 and Anxiety F41.9 [place] [address] [address] Apr, [place] [address] [address] Apr, [place] [address] [address] Mar, [address] [address] Mar, [address] [address] Mar, Sore throat J02.9 ; Gastroesophageal ref lux disease without esophagitis K21.9 ; Pseudotumor cerebri G93.2 ; Chronic pain syndrome G89.4 ; Choriocarcinoma C58 ; History of pulmonary embolism Z86.711 ; History of DVT (deep vein thrombosis) Z86.718 ; Anxiety F41.9 and Tachycardia R00.[address] [address] Feb, Anxiety 300.00 and Chronic pain 338.[address] [address] Feb, [address] [address] Feb, [address] [address] Jan, detention 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 t herapy V58.61 and Dysuria 788.[address] [address] Jan, Dysuria 788.[address] [address] Jan, Anxiety 300.00 and Chronic pain 338.[address] [address] Jan, [place] [address] [address] Jan, [place] [address] [address] Jan, 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 and Yeast vaginitis 112.1 [place] [address] [address] Dec, [place] [address] [address] Dec, Cervicalgia 723.1 ; Tachycardia 785.0 ; Pseudotumor cerebri 348.2 and History of venous thromboembolism V12.51 [place] [address] [address] Nov, [place] [address] [address] Nov, [place] [address] [address] Nov, Tachycardia 785.0 ; Pseudotumor cerebri 348.2 ; Anxiety 300.00 and History of venous thromboembolism V12.51 [place] [address] [address] Nov, [place] [address] [address] Nov, [place] [address] [address] Nov, [facility] [address] [id number] [place] [address] Nov, [facility] [address] [place] [id number] [place] [address] Nov, [facility] [address] [id number] [place] [address] 08 Nov, 2014 [facility] [address] [place] [id number] [place] [address] Nov, [facility] [address] [id number] [place] [address] October, [facility] [address] [place] [id number] [place] [address] October, [facility] [address] [place] [id number] [place] [address] October, Pain in thoracic spine 724.1 and Tachyca rdia 785.0 [facility] [address] [place] [id number] [place] [address] October, [facility] [address] [place] [id number] [place] [address] October, [facility] [address] [place] [id number] [place] [address] Sep, [facility] [address] [place] [id number] [place] [address] Sep, [facility] [address] [place] [id number] [place] [address] Aug, [facility] [address] [id number] [place] [address] Aug, [facility] [address] [place] [id number] [place] [address] Aug, [facility] [address] [id number] [place] [address] Aug, [facility] [address] [place] [id number] [place] [address] 16 Aug, 2014 [facility] [address] [id number] [place] [address] 16 Aug, 2014 [facility] [address] [id number] [place] [address] Aug, 2014 [facility] [address] [id number] [place] [address] Aug, 2014 [facility] [address] [id number] [place] [address] Aug, 2014 [facility] [address] [id number] [place] [address] Aug, 2014 [facility] [address] [id number] [place] [address] Aug, 2014 [facility] [address] [id number] [place] [address] Aug, 2014 [facility] [address] [id number] [place] [address] Jul, 2014 [facility] [address] [id number] [place] [address] Jul, 2014 [facility] [address] [id number] [place] [address] Jul, 2014 [facility] [address] [id number] [place] [address] Jul, 2014 [facility] [address] [id number] [place] [address] Jul, 2014 [facility] [address] [id number] [place] [address] Jul, 2014 [facility] [address] [id number] [place] [address] Jul, 2014 [facility] [address] [id number] [place] [address] Jul, 2014 [facility] [address] [id number] [place] [address] Jul, 2014 [facility] [address] [id number] [place] [address] 20 Jul, 2014 [facility] [address] [facility] [id number] [place] [address] 19 Jul, 2014 [facility] [address] [id number] [place] [address] 19 Jul, 2014 [facility] [address] [id number] [place] [address] 17 Jul, 2014 [facility] [address] [id number] [place] [address] 17 Jul, 2014 [facility] [address] [id number] [place] [address] 16 Jul, 2014 [facility] [address] [id number] [place] [address] 16 Jul, 2014 [facility] [address] [id number] [place] [address] 16 Jul, 2014 [facility] [address] [id number] [place] [address] 16 Jul, 2014 [facility] [address] [id number] [place] [address] 13 Jul, 2014 [facility] [address] [id number] [place] [address] 13 Jul, 2014 [facility] [address] [id number] [place] [address] 13 Jul, 2014 [facility] [address] [id number] [place] [address] 13 Jul, 2014 [facility] [address] [id number] [place] [address] 12 Jul, 2014 [facility] [address] [id number] [place] [address] 12 Jul, 2014 [facility] [address] [id number] [place] [address] 12 Jul, 2014 [facility] [address] [id number] [place] [address] Jul, [facility] [address] [id number] [place] [address] Jul, [facility] [address] [id number] [place] [address] Jul, [facility] [address] [id number] [place] [address] Jul, [facility] [address] [id number] [place] [address] Jul, [facility] [address] [id number] [place] [address] Jun, [facility] [address] [id number] [place] [address] Jun, [facility] [address] [id number] [place] [address] Jun, [facility] [address] [id number] [place] [address] Jun, [facility] [address] [id number] [place] [address] Jun, [facility] [address] [id number] [place] [address] Jun, [facility] [address] [id number] [place] [address] Jun, [facility] [address] [id number] [place] [address] Jun, [facility] [address] [id number] [place] [address] Jun, [facility] [address] [id number] [place] [address] Jun, [facility] [address] [id number] [place] [address] Jun, [facility] [address] [id number] [place] [address] Jun, [facility] [address] [id number] [place] [address] Jun, [facility] [address] [id number] [place] [address] Jun, [facility] [address] [id number] [place] [address] 16 Jun, 2014 [facility] [address] [id number] [place] [address] Jun, [facility] [address] [id number] [place] [address] Jun, [facility] [address] [id number] [place] [address] Jun, [facility] [address] [id number] [place] [address] Jun, [facility] [address] [id number] [place] [address] Jun, [facility] [address] [id number] [place] [address] May, [facility] [address] [id number] [place] [address] May, [facility] [address] [id number] [place] [address] May, [facility] [address] [id number] [place] [address] May, [facility] [address] [id number] [place] [address] May, [facility] [address] [id number] [place] [address] May, [facility] [address] [id number] [place] [address] May, [facility] [address] [id number] [place] [address] May, [facility] [address] [id number] [place] [address] May, [facility] [address] [facility] [id number] [place] [address] May, [facility] [address] [id number] [place] [address] May, [facility] [address] [id number] [place] [address] 18 May, 2014 [facility] [address] [id number] [place] [address] 18 May, 2014 [facility] [address] [id number] [place] [address] 17 May, 2014 [facility] [address] [id number] [place] [address] 16 May, 2014 [facility] [address] [id number] [place] [address] 16 May, 2014 [facility] [address] [id number] [place] [address] 15 May, 2014 [facility] [address] [id number] [place] [address] 15 May, 2014 [facility] [address] [id number] [place] [address] May, [facility] [address] [id number] [place] [address] May, [facility] [address] [id number] [place] [address] May, [facility] [address] [id number] [place] [address] May, [facility] [address] [id number] [place] [address] May, [facility] [address] [id number] [place] [address] May, [facility] [address] [id number] [place] [address] May, [facility] [address] [id number] [place] [address] May, [facility] [address] [id number] [place] [address] May, [facility] [address] [id number] [place] [address] May, [facility] [address] [id number] [place] [address] May, [facility] [address] [id number] [place] [address] May, [facility] [address] [id number] [place] [address] May, [facility] [address] [id number] [place] [address] May, [facility] [address] [id number] [place] [address] May, [facility] [address] [id number] [place] [address] May, [facility] [address] [id number] [place] [address] Apr, [facility] [address] [id number] [place] [address] Apr, [facility] [address] [id number] [place] [address] Apr, [facility] [address] [id number] [place] [address] Apr, [facility] [address] [id number] [place] [address] Apr, [facility] [address] [id number] [place] [address] Apr, [facility] [address] [id number] [place] [address] Apr, [facility] [address] [id number] [place] [address] Apr, [facility] [address] [id number] [place] [address] Apr, [facility] [address] [id number] [place] [address] Apr, [facility] [address] [id number] [place] [address] Mar, 2013 [facility] [address] [id number] [place] [address] Mar, [facility] [address] [id number] [place] [address] Mar, [facility] [address] [id number] [place] [address] Mar, [facility] [address] [id number] [place] [address] Mar, [facility] [address] [id number] [place] [address] Mar, [facility] [address] [id number] [place] [address] Mar, [facility] [address] [id number] [place] [address] Mar, [facility] [address] [id number] [place] [address] 15 Mar, 2014 [facility] [address] [id number] [place] [address] 15 Mar, 2014 [facility] [address] [id number] [place] [address] 15 Mar, 2014 [facility] [address] [id number] [place] [address] 15 Mar, 2014 [facility] [address] [id number] [place] [address] Mar, [facility] [address] [id number] [place] [address] Mar, [facility] [address] [id number] [place] [address] Mar, 2013 [facility] [address] [id number] [place] [address] Mar, 2013 [facility] [address] [id number] [place] [address] Mar, 2013 [facility] [address] [id number] [place] [address] Mar, 2013 [facility] [address] [id number] [place] [address] Mar, 2013 [facility] [address] [id number] [place] [address] Mar, 2013 [facility] [address] [id number] [place] [address] 05 Sep, 2013 [facility] [address] [id number] [place] [address] 05 Sep, 2013 [facility] [address] [id number] [place] [address] 04 Sep, 2013 [facility] [address] [id number] [place] [address] 04 Sep, 2013 [facility] [address] [id number] [place] [address] Sep, 2013 [facility] [address] [id number] [place] [address] 03 Sep, 2013 [facility] [address] [id number] [place] [address] Sep, 2013 [facility] [address] [id number] [place] [address] Sep, 2013 [facility] [address] [id number] [place] [address] Sep, 2013 [facility] [address] [id number] [place] [address] Sep, 2013 [facility] [address] [id number] [place] [address] Jan, 2013 [facility] [address] [id number] [facility] [place] [address] Jan, [facility] [address] [id number] [facility] [place] [address] Jan, [facility] [address] [facility] [id number] [facility] [place] [address] Jan, [facility] [address] [facility] [id number] [place] [address] Jan, [facility] [address] [facility] [id number] [facility] [place] [address] Jan, [facility] [address] [id number] [facility] [place] [address] Jan, [facility] [address] [facility] [id number] [place] [address] Jan, [facility] [address] [id number] [place] [address] Jan, [facility] [address] [facility] [id number] [place] [address] Jan, [facility] [address] [id number] [place] [address] Jan, [facility] [address] [facility] [id number] [place] [address] Jan, [facility] [address] [id number] [place] [address] Dec, [facility] [address] [id number] [place] [address] Dec, [facility] [address] [id number] [place] [address] Dec, [facility] [address] [id number] [place] [address] Dec, [facility] [address] [facility] [id number] [place] [address] Dec, [facility] [address] [id number] [place] [address] Dec, [facility] [address] [facility] [id number] [place] [address] 10 Dec, 2013 [facility] [address] [facility] [id number] [place] [address] Dec, 2013 [facility] [address] [id number] [place] [address] Dec, 2013 [facility] [address] [id number] [place] [address] Dec, 2013 [facility] [address] [facility] [id number] [place] [address] Dec, 2013 [facility] [address] [id number] [place] [address] Dec, 2013 [facility] [address] [id number] [place] [address] Nov, [facility] [address] [id number] [place] [address] Nov, [facility] [address] [id number] [place] [address] Nov, [facility] [address] [id number] [place] [address] Nov, [facility] [address] [id number] [place] [address] Nov, [facility] [address] [id number] [place] [address] Nov, [facility] [address] [id number] [place] [address] Nov, [facility] [address] [id number] [place] [address] Nov, [facility] [address] [id number] [place] [address] Nov, [facility] [address] [id number] [place] [address] Nov, [facility] [address] [id number] [place] [address] Nov, [facility] [address] [id number] [place] [address] Nov, [facility] [address] [id number] [place] [address] Nov, [facility] [address] [id number] [place] [address] Nov, [facility] [address] [id number] [place] [address] October, [facility] [address] [id number] [place] [address] October, [facility] [address] [id number] [place] [address] October, [facility] [address] [id number] [place] [address] October, [facility] [address] [id number] [place] [address] October, [facility] [address] [id number] [place] [address] October, [facility] [place] [facility] [address] [id number] [place] [address] October, [facility] [place] [facility] [address] [id number] [place] [address] October, [facility] [place] [facility] [address] [id number] [place] [address] October, [facility] [place] [facility] [address] [id number] [place] [address] October, [facility] [place] [facility] [address] [id number] [place] [address] October, [facility] [place] [facility] [address] [id number] [place] [address] October, [facility] [place] [facility] [address] [id number] [place] [address] Sep, [facility] [place] [facility] [address] [id number] [facility] [place] [address] Sep, [facility] [place] [facility] [address] [facility] [id number] [place] [address] Sep, [facility] [place] [facility] [address] [id number] [place] [address] Sep, [facility] [place] [facility] [address] [id number] [place] [address] Sep, [facility] [place] [facility] [address] [id number] [place] [address] Sep, [facility] [place] [facility] [address] [id number] [place] [address] Aug, [facility] [place] [facility] [address] [id number] [place] [address] Aug, [facility] [place] [facility] [address] [id number] [place] [address] Aug, [facility] [place] [facility] [address] [id number] [place] [address] Aug, [facility] [place] [facility] [address] [id number] [place] [address] Aug, [facility] [place] [facility] [address] [id number] [place] [address] Aug, [facility] [place] [facility] [address] [id number] [place] [address] Jul, [facility] [place] [facility] [address] [id number] [place] [address] Jul, [facility] [place] [facility] [address] [id number] [place] [address] Jul, [facility] [place] [facility] [address] [id number] [place] [address] Jul, [facility] [place] [facility] [address] [id number] [place] [address] Jul, [facility] [place] [facility] [address] [id number] [place] [address] Jul, [facility] [place] [facility] [address] [facility] [id number] [place] [address] Jul, [facility] [place] [facility] [address] [id number] [facility] [place] [address] Jul, [facility] [place] [facility] [address] [id number] [place] [address] Jul, [facility] [place] [facility] [address] [id number] [place] [address] Jul, [facility] [place] [facility] [address] [id number] [place] [address] Jun, [facility] [place] [facility] [address] [id number] [place] [address] Jun, [facility] [place] [facility] [address] [id number] [place] [address] Jun, [facility] [place] [facility] [address] [id number] [place] [address] Jun, [facility] [place] [facility] [address] [id number] [place] [address] Jun, [facility] [place] [facility] [address] [id number] [place] [address] Jun, [facility] [place] [facility] [address] [id number] [place] [address] Jun, [facility] [place] [facility] [address] [id number] [place] [address] Jun, [facility] [place] [facility] [address] [id number] [place] [address] May, [facility] [place] [facility] [address] [id number] [place] [address] May, [facility] [place] [facility] [address] [id number] [place] [address] May, [facility] [place] [facility] [address] [id number] [place] [address] May, [facility] [place] [facility] [address] [id number] [place] [address] 05 May, 2012 [facility] [place] [facility] [address] [facility] [id number] [place] [address] May, [facility] [place] [facility] [address] [id number] [place] [address] May, [facility] [place] [facility] [address] [id number] [place] [address] May, [facility] [place] [facility] [address] [id number] [place] [address] Apr, [facility] [place] [facility] [address] [id number] [place] [address] Apr, [facility] [place] [facility] [address] [id number] [place] [address] Apr, [facility] [place] [facility] [address] [id number] [place] [address] Apr, [facility] [place] [facility] [address] [id number] [place] [address] Apr, [facility] [place] [facility] [address] [id number] [place] [address] Apr, [facility] [place] [facility] [address] [id number] [place] [address] Mar, [facility] [place] [facility] [address] [id number] [place] [address] Mar, [facility] [place] [facility] [address] [id number] [place] [address] Mar, [facility] [place] [facility] [address] [id number] [place] [address] Mar, [facility] [place] [facility] [address] [id number] [place] [address] Mar, [facility] [place] [facility] [address] [id number] [place] [address] Mar, [facility] [place] [facility] [address] [id number] [place] [address] Mar, [facility] [place] [facility] [address] [id number] [place] [address] Feb, 2012 [facility] [place] [facility] [address] [id number] [place] [address] 30 Feb, 2012 [facility] [place] [facility] [address] [id number] [place] [address] Feb, 2012 [facility] [place] [facility] [address] [id number] [place] [address] Feb, 2012 [facility] [place] [facility] [address] [facility] [id number] [place] [address] Feb, [facility] [place] [facility] [address] [id number] [place] [address] Feb, [facility] [place] [facility] [address] [id number] [place] [address] Jan, [facility] [place] [facility] [address] [id number] [place] [address] Jan, [facility] [place] [facility] [address] [id number] [place] [address] Jan, [facility] [place] [facility] [address] [id number] [place] [address] Jan, [facility] [place] [facility] [address] [id number] [place] [address] Jan, [facility] [place] [facility] [address] [id number] [place] [address] Jan, [facility] [place] [facility] [address] [id number] [place] [address] Jan, [facility] [place] [facility] [address] [id number] [place] [address] Jan, [facility] [place] [facility] [address] [id number] [place] [address] Jan, [facility] [place] [facility] [address] [id number] [place] [address] Dec, [facility] [place] [facility] [address] [id number] [place] [address] Dec, 2012 [facility] [place] [facility] [address] [facility] [id number] [facility] [address] Dec, 2012 [facility] [place] [facility] [address] [facility] [id number] [facility] [place] [address] Dec, 2012 [facility] [place] [facility] [address] [id number] [facility] [address] 17 Dec, 2012 [facility] [place] [facility] [address] [id number] [place] [address] 16 Dec, 2012 [facility] [place] [facility] [address] [facility] [id number] [facility] [place] [address] 15 Dec, 2012 [facility] [place] [facility] [address] [id number] [facility] [place] [address] Dec, [facility] [place] [facility] [address] [id number] [facility] [address] Dec, 2012 [facility] [place] [facility] [address] [id number] [place] [address] Dec, [facility] [place] [facility] [address] [id number] [facility] [address] Dec, [facility] [place] [facility] [address] [id number] [facility] [address] Dec, [facility] [place] [facility] [address] [id number] [place] [address] Dec, [facility] [place] [facility] [address] [id number] [place] [address] Nov, [facility] [place] [facility] [address] [facility] [id number] [facility] [place] [address] Nov, [facility] [place] [facility] [address] [id number] [place] [address] Nov, [facility] [place] [facility] [address] [id number] [place] [address] Nov, [facility] [place] [facility] [address] [id number] [place] [address] October, [facility] [place] [facility] [address] [facility] [id number] [facility] [place] [address] October, [facility] [place] [facility] [address] [id number] [place] [address] October, [facility] [place] [facility] [address] [id number] [place] [address] October, [facility] [place] [facility] [address] [id number] [place] [address] October, [facility] [place] [facility] [address] [id number] [place] [address] October, [facility] [place] [facility] [address] [id number] [place] [address] Sep, [facility] [place] [facility] [address] [id number] [place] [address] Sep, [facility] [place] [facility] [address] [id number] [place] [address] Sep, [facility] [place] [facility] [address] [id number] [place] [address] Sep, [facility] [place] [facility] [address] [id number] [place] [address] Sep, [facility] [place] [facility] [address] [id number] [place] [address] 16 Sep, 2012 [facility] [place] [facility] [address] [id number] [place] [address] Sep, [facility] [place] [facility] [address] [id number] [place] [address] Sep, [facility] [place] [facility] [address] [id number] [place] [address] Sep, [facility] [place] [facility] [address] [id number] [place] [address] Sep, [facility] [place] [facility] [address] [id number] [place] [address] Sep, [facility] [place] [facility] [address] [id number] [place] [address] Aug, [facility] [address] [id number] [place] [address] 25 Aug, 2012 [facility] [address] [id number] [place] [address] 25 Aug, 2012 [facility] [place] [facility] [address] [id number] [place] [address] 21 Aug, 2012 [facility] [address] [id number] [place] [address] 19 Aug, 2012 [facility] [place] [facility] [address] [facility] [id number] [place] [address] 18 Aug, 2012 [facility] [address] [id number] [place] [address] 17 Aug, 2012 [facility] [place] [facility] [address] [id number] [place] [address] 15 Aug, 2012 [facility] [address] [id number] [place] [address] 15 Aug, 2012 [facility] [place] [facility] [address] [id number] [place] [address] 11 Aug, 2012 [facility] [place] [facility] [address] [id number] [place] [address] 11 Aug, 2012 [facility] [place] [facility] [address] [id number] [place] [address] 07 Aug, 2012 [facility] [address] [id number] [place] [address] 27 Jul, 2012 [facility] [place] [facility] [address] [id number] [place] [address] Jul, [facility] [place] [facility] [address] [id number] [place] [address] Jul, [facility] [place] [facility] [address] [id number] [place] [address] Jul, [facility] [place] [facility] [address] [id number] [place] [address] Jul, [facility] [place] [facility] [id number] [place] [address] Jul, 2012 [facility] [address] [id number] [place] [address] Jul, [facility] [id number] [place] [address] Jul, [facility] [id number] [place] [address] Jul, [facility] [place] [facility] [id number] [place] [address] Jul, [facility] [address] [id number] [place] [address] May, [facility] [place] [address] [id number] [id number] May, [facility] [id number] [place] [address] May, [facility] [place] [facility] [id number] [place] [address] May, [facility] [id number] [place] [address] May, [facility] [id number] [place] [address] Apr, [facility] [place] [address] [facility] [id number] Apr, [facility] [place] [facility] [id number] [place] [address] Apr, [facility] [place] [facility] [address] [id number] [place] [address] Mar, [facility] [address] [facility] [id number] Mar, [facility] [place] [facility] [id number] [place] [address] Mar, [facility] [address] [facility] [id number] Feb, [facility] [place] [facility] [address] [id number] [place] [address] 13 Feb, 2012 [facility] [place] [facility] [address] [id number] [place] [address] 13 Feb, 2012 [facility] [address] [id number] [place] [id number] 10 Feb, 2012 [facility] [address] [id number] [id number] 07 Feb, 2012 [facility] [address] [id number] [id number] Jan, [facility] [place] [facility] [address] [id number] [place] [address] Jan, [facility] [address] [id number] [id number] Jan, [facility] [id number] [id number] Jan, [facility] [id number] [id number] Jan, [facility] [place] [facility] [id number] [place] [address] Jan, [facility] [place] [facility] [id number] [place] [address] Jan, [facility] [place] [facility] [id number] [place] [address] Aug, [facility] [address] [facility]07757[facility] [id number] Aug, [facility] [place] [facility] [id number] [place] [address] Jul, [facility] [place] [facility] [address] [id number] [place] [address] Jul, [facility] [place] [facility] [id number] [place] [address] Jul, [facility] [address] [id number] [id number] Jul, [facility] [place] [facility] [id number] [place] [address] Jul, [facility] [address] [id number] [place] [id number] Jul, [facility] [place] [facility] [id number] [place] [address] Jul, [facility] [place] [address] [id number] [place] [id number] Jul, [facility] [place] [address] [id number] [place] [id number] Jul, [facility] [place] [address] [id number] [place] [id number] Jul, [facility] [place] [facility] [id number] [place] [address] May, [facility] [place] [facility] [id number] [place] [address] May, [facility] [place] [facility] [id number] [place] [address] May, [facility] [facility] [id number] [place] [address] Apr, [facility] [place] [facility] [id number] [place] [address] Jan, [facility] [id number] [place] [address] Jan, [facility] [facility] [id number] [place] [address] Dec, [facility] [id number] [place] [address] 15 Dec, 2009 [facility] [id number] [place] [address] 16 May, 2009 [facility] [id number] [place] [address] 21 Mar, 2009 [facility] [place] [facility] [id number] [place] [address] 13 Mar, 2009 [facility] [id number] [place] [address] 14 Jan, 2009 IMMUNIZATIONS No Known Immunizations SOCIAL HISTORY Never Assessed REASON FOR VISIT PLAN OF CARE VITAL SIGNS MEDICATIONS Unknown Medications RESULTS No Results PROCEDURES Procedure Date Ordered Result Body Site PROTHROMBIN TIME Aug 05, 2013 INSTRUCTIONS MEDICATIONS ADMINISTERED No Known Medications [...]
--- OUTSIDE RECORDS SUMMARY | 2020-01-28 12:32 | XMS REPORT ---
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 Active 729944123 Problem History of venous thromboembolism V12.51 Active 167749915 Problem Cellulitis of unspecified part of limb L03.119 Active 277352238 Problem Gastroesophageal reflux disease without esophagitis K21.9 Active 308270149 Problem History of pulmonary embolism Z86.711 Active 018443185 Problem Pseudotumor cerebri G93.2 Active 03307736 Problem History of DVT (deep vein thrombosis) Z86.718 Active 365093244 ALLERGIES No Information ENCOUNTERS Encounter Location Date Diagnosis [place] [address] [address] Apr, 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 (current) use of 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 Z79.01 [place] [id number] [address] Apr, [facility] 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 Z 79.01 [place] [address] [address] Apr, Cellulitis of unspecified part of limb L 03.119 ; Allergic contact dermatitis due to adhesives L23.1 and Chronic pain syndrome G89.4 [place] [address] [address] Apr, [place] [address] [address] Apr, 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 Z 79.01 ; Cellulitis of unspecified part of limb L03.119 ; Chronic pain syndrome G89.4 and Anxiety F41.9 [place] [address] [address] Apr, [place] [address] [address] Apr, [place] [address] [address] Mar, [place] [address] [address] Mar, [address] [address] Mar, Sore throat J02.9 ; Gastroesophageal ref lux disease without esophagitis K21.9 ; Pseudotumor cerebri G93.2 ; Chronic pain syndrome G89.4 ; Choriocarcinoma C58 ; History of pulmonary embolism Z86.711 ; History of DVT (deep vein thrombosis) Z86.718 ; Anxiety F41.9 and Tachycardia R00.[address] [address] Feb, Anxiety 300.00 and Chronic pain 338.[address] [address] Feb, [place] [address] [address] Feb, [place] [address] [address] Jan, 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 t herapy V58.61 and Dysuria 788.[address] [address] Jan, Dysuria 788.[address] [address] Jan, Anxiety 300.00 and Chronic pain 338.29 [place] [address] [address] Jan, [place] [address] [address] Jan, [place] [address] [address] Jan, [place] [address] [address] Dec, Weakness 780.79 [place] [address] [address] Dec, 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 t herapy V58.61 [place] [address] [address] Dec, Palpitations 785.1 ; Tremor 781.0 ; Weak ness 780.79 ; 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 therapy V58.61 and Yeast vaginitis 112.1 [place] [address] [address] Dec, [place] [address] [address] Dec, Cervicalgia 723.1 ; Tachycardia 785.0 ; Pseudotumor cerebri 348.2 and History of venous thromboembolism V12.51 [place] [address] [address] Nov, [place] [address] [address] Nov, [place] [address] [address] Nov, Tachycardia 785.0 ; Pseudotumor cerebri 348.2 ; Anxiety 300.00 and History of venous thromboembolism V12.51 [place] [address] [address] Nov, [place] [address] [address] Nov, [facility] [address] [id number] [place] [address] 16 Nov, 2014 [facility] [address] [place] [id number] [place] [address] 12 Nov, 2014 [facility] [address] [id number] [place] [address] Nov, [facility] [address] [place] [id number] [place] [address] 08 Nov, 2014 [facility] [address] [id number] [place] [address] Nov, [facility] [address] [place] [id number] [place] [address] October, [facility] [address] [place] [id number] [place] [address] October, [facility] [address] [place] [id number] [place] [address] October, Pain in thoracic spine 724.1 and Tachyca rdia 785.0 [facility] [address] [place] [address] [id number] [place] [address] October, [facility] [address] [place] [address] [id number] [place] [address] October, [facility] [address] [place] [id number] [place] [address] 14 Sep, 2014 [facility] [address] [place] [address] [id number] [place] [address] Sep, [facility] [address] [place] [address] [id number] [place] [address] Aug, [facility] [address] [place] [id number] [place] [address] Aug, [facility] [address] [id number] [place] [address] Aug, [facility] [address] [place] [id number] [place] [address] Aug, [facility] [address] [id number] [place] [address] Aug, 2014 [facility] [address] [id number] [place] [address] Aug, 2014 [facility] [address] [id number] [place] [address] Aug, 2014 [facility] [address] [id number] [place] [address] Aug, 2014 [facility] [address] [id number] [place] [address] Aug, 2014 [facility] [address] [id number] [place] [address] Aug, 2014 [facility] [address] [id number] [place] [address] Aug, 2014 [facility] [address] [id number] [place] [address] Aug, 2014 [facility] [address] [id number] [place] [address] Jul, 2014 [facility] [address] [id number] [place] [address] Jul, 2014 [facility] [address] [id number] [place] [address] Jul, 2014 [facility] [address] [id number] [place] [address] Jul, 2014 [facility] [address] [id number] [place] [address] Jul, 2014 [facility] [address] [id number] [place] [address] Jul, 2014 [facility] [address] [id number] [place] [address] Jul, 2014 [facility] [address] [id number] [place] [address] Jul, 2014 [facility] [address] [id number] [place] [address] 20 Jul, 2014 [facility] [address] [id number] [place] [address] 20 Jul, 2014 [facility] [address] [id number] [place] [address] 19 Jul, 2014 [facility] [address] [id number] [place] [address] 19 Jul, 2014 [facility] [address] [id number] [place] [address] 17 Jul, 2014 [facility] [address] [id number] [place] [address] 17 Jul, 2014 [facility] [address] [id number] [place] [address] 16 Jul, 2014 [facility] [address] [id number] [place] [address] 16 Jul, 2014 [facility] [address] [id number] [place] [address] 16 Jul, 2014 [facility] [address] [id number] [place] [address] 16 Jul, 2014 [facility] [address] [id number] [place] [address] 13 Jul, 2014 [facility] [address] [id number] [place] [address] 13 Jul, 2014 [facility] [address] [id number] [place] [address] 13 Jul, 2014 [facility] [address] [id number] [place] [address] 13 Jul, 2014 [facility] [address] [id number] [place] [address] 12 Jul, 2014 [facility] [address] [id number] [place] [address] 12 Jul, 2014 [facility] [address] [id number] [facility] [address] Jul, [facility] [address] [facility] [id number] [place] [address] Jul, [facility] [address] [id number] [place] [address] Jul, [facility] [address] [id number] [place] [address] Jul, [facility] [address] [id number] [place] [address] Jul, [facility] [address] [id number] [place] [address] Jul, [facility] [address] [id number] [place] [address] Jun, [facility] [address] [id number] [place] [address] Jun, [facility] [address] [id number] [place] [address] Jun, [facility] [address] [id number] [place] [address] Jun, [facility] [address] [id number] [place] [address] Jun, [facility] [address] [id number] [place] [address] Jun, [facility] [address] [id number] [place] [address] Jun, [facility] [address] [id number] [place] [address] Jun, [facility] [address] [id number] [place] [address] Jun, [facility] [address] [id number] [place] [address] Jun, [facility] [address] [id number] [place] [address] Jun, [facility] [address] [id number] [place] [address] Jun, [facility] [address] [id number] [place] [address] Jun, [facility] [address] [id number] [place] [address] Jun, [facility] [address] [id number] [place] [address] Jun, [facility] [address] [id number] [place] [address] Jun, [facility] [address] [id number] [place] [address] Jun, [facility] [address] [id number] [place] [address] Jun, [facility] [address] [id number] [place] [address] Jun, [facility] [address] [id number] [place] [address] Jun, [facility] [address] [id number] [place] [address] May, [facility] [address] [id number] [place] [address] May, [facility] [address] [id number] [place] [address] May, [facility] [address] [id number] [place] [address] May, [facility] [address] [id number] [place] [address] May, [facility] [address] [id number] [place] [address] May, [facility] [address] [id number] [place] [address] May, [facility] [address] [id number] [place] [address] May, [facility] [address] [facility] [id number] [place] [address] May, [facility] [address] [id number] [place] [address] May, [facility] [address] [id number] [place] [address] May, [facility] [address] [id number] [place] [address] May, [facility] [address] [id number] [place] [address] 18 May, 2014 [facility] [address] [id number] [place] [address] 17 May, 2014 [facility] [address] [id number] [place] [address] 16 May, 2014 [facility] [address] [id number] [place] [address] 16 May, 2014 [facility] [address] [id number] [place] [address] 15 May, 2014 [facility] [address] [id number] [place] [address] 15 May, 2014 [facility] [address] [id number] [place] [address] 12 May, 2014 [facility] [address] [id number] [place] [address] May, [facility] [address] [id number] [place] [address] May, [facility] [address] [id number] [place] [address] May, [facility] [address] [id number] [place] [address] May, [facility] [address] [id number] [place] [address] May, [facility] [address] [id number] [place] [address] May, [facility] [address] [id number] [place] [address] May, [facility] [address] [id number] [place] [address] May, [facility] [address] [id number] [place] [address] May, [facility] [address] [id number] [place] [address] May, [facility] [address] [id number] [place] [address] May, [facility] [address] [id number] [place] [address] May, [facility] [address] [id number] [place] [address] May, [facility] [address] [id number] [place] [address] May, [facility] [address] [id number] [place] [address] May, [facility] [address] [id number] [place] [address] Apr, [facility] [address] [id number] [place] [address] Apr, [facility] [address] [id number] [place] [address] Apr, [facility] [address] [id number] [place] [address] Apr, [facility] [address] [id number] [place] [address] Apr, [facility] [address] [id number] [place] [address] Apr, [facility] [address] [id number] [place] [address] Apr, [facility] [address] [id number] [place] [address] Apr, [facility] [address] [id number] [place] [address] Apr, [facility] [address] [id number] [place] [address] Apr, [facility] [address] [id number] [place] [address] Mar, [facility] [address] [id number] [place] [address] Mar, [facility] [address] [id number] [place] [address] Mar, [facility] [address] [id number] [place] [address] Mar, [facility] [address] [id number] [place] [address] Mar, [facility] [address] [id number] [place] [address] 30 Mar, 2014 [facility] [address] [id number] [place] [address] Mar, [facility] [address] [id number] [place] [address] 17 Mar, 2013 [facility] [address] [id number] [place] [address] 15 Mar, 2014 [facility] [address] [id number] [place] [address] 15 Mar, 2014 [facility] [address] [id number] [place] [address] 15 Mar, 2014 [facility] [address] [id number] [place] [address] 15 Mar, 2014 [facility] [address] [id number] [place] [address] 09 Mar, 2014 [facility] [address] [id number] [place] [address] Mar, 2013 [facility] [address] [id number] [place] [address] Mar, 2013 [facility] [address] [id number] [place] [address] Mar, 2013 [facility] [address] [id number] [place] [address] Mar, 2013 [facility] [address] [id number] [place] [address] Mar, 2013 [facility] [address] [id number] [place] [address] Mar, 2013 [facility] [address] [id number] [place] [address] Mar, 2013 [facility] [address] [id number] [place] [address] 05 Sep, 2013 [facility] [address] [id number] [place] [address] 05 Sep, 2013 [facility] [address] [id number] [place] [address] 04 Sep, 2013 [facility] [address] [id number] [place] [address] 04 Sep, 2013 [facility] [address] [id number] [place] [address] 03 Sep, 2013 [facility] [address] [id number] [place] [address] 03 Sep, 2013 [facility] [address] [id number] [place] [address] Sep, 2013 [facility] [address] [id number] [place] [address] Sep, 2013 [facility] [address] [id number] [place] [address] Sep, 2013 [facility] [address] [id number] [place] [address] Sep, 2013 [facility] [address] [id number] [place] [address] Jan, [facility] [address] [id number] [place] [address] Jan, [facility] [address] [facility] [id number] [place] [address] Jan, [facility] [address] [facility] [id number] [place] [address] Jan, [facility] [address] [facility] [id number] [place] [address] Jan, [facility] [address] [id number] [place] [address] Jan, [facility] [address] [facility] [id number] [place] [address] Jan, [facility] [address] [id number] [place] [address] Jan, [facility] [address] [id number] [place] [address] Jan, [facility] [address] [id number] [place] [address] Jan, [facility] [address] [facility] [id number] [place] [address] Jan, [facility] [address] [id number] [place] [address] Jan, [facility] [address] [id number] [place] [address] Dec, [facility] [address] [id number] [place] [address] Dec, [facility] [address] [id number] [place] [address] Dec, [facility] [address] [facility] [id number] [place] [address] Dec, [facility] [address] [id number] [place] [address] Dec, [facility] [address] [facility] [id number] [place] [address] 14 Dec, 2013 [facility] [address] [facility] [id number] [place] [address] Dec, 2013 [facility] [address] [facility] [id number] [place] [address] Dec, 2013 [facility] [address] [id number] [place] [address] Dec, 2013 [facility] [address] [facility] [id number] [place] [address] Dec, 2013 [facility] [address] [id number] [place] [address] Dec, 2013 [facility] [address] [id number] [place] [address] Dec, 2013 [facility] [address] [id number] [place] [address] Nov, 2013 [facility] [address] [id number] [place] [address] Nov, [facility] [address] [id number] [place] [address] Nov, [facility] [address] [id number] [place] [address] Nov, [facility] [address] [id number] [place] [address] Nov, [facility] [address] [id number] [place] [address] Nov, [facility] [address] [id number] [place] [address] Nov, [facility] [address] [id number] [place] [address] Nov, [facility] [address] [id number] [place] [address] Nov, [facility] [address] [id number] [place] [address] Nov, [facility] [address] [id number] [place] [address] Nov, [facility] [address] [id number] [place] [address] Nov, [facility] [address] [id number] [place] [address] Nov, [facility] [address] [id number] [place] [address] Nov, [facility] [address] [id number] [place] [address] October, [facility] [address] [id number] [place] [address] October, [facility] [address] [id number] [place] [address] October, [facility] [address] [id number] [place] [address] October, [facility] [address] [id number] [place] [address] October, [facility] [address] [id number] [place] [address] October, [facility] [address] [id number] [place] [address] October, [facility] [address] [id number] [place] [address] October, [facility] [address] [id number] [place] [address] October, [facility] [address] [id number] [place] [address] October, [facility] [address] [id number] [place] [address] October, [facility] [address] [id number] [place] [address] October, [facility] [address] [id number] [place] [address] Sep, [facility] [address] [id number] [place] [address] Sep, [facility] [address] [facility] [id number] [place] [address] Sep, [facility] [address] [id number] [place] [address] Sep, [facility] [address] [id number] [place] [address] Sep, [facility] [address] [facility] [id number] [place] [address] Sep, [facility] [address] [id number] [place] [address] Aug, [facility] [address] [id number] [place] [address] Aug, [facility] [address] [id number] [place] [address] Aug, [facility] [address] [facility] [id number] [place] [address] Aug, [facility] [address] [id number] [place] [address] Aug, [facility] [address] [id number] [place] [address] Aug, [facility] [address] [id number] [place] [address] Jul, [facility] [address] [facility] [id number] [place] [address] Jul, [facility] [address] [id number] [place] [address] Jul, [facility] [address] [id number] [place] [address] Jul, [facility] [address] [id number] [place] [address] Jul, [facility] [address] [facility] [id number] [place] [address] Jul, [facility] [address] [id number] [place] [address] Jul, [facility] [address] [id number] [place] [address] Jul, [facility] [address] [id number] [place] [address] Jul, [facility] [address] [id number] [place] [address] Jul, [facility] [address] [id number] [place] [address] Jun, [facility] [address] [id number] [place] [address] Jun, [facility] [address] [id number] [place] [address] Jun, [facility] [address] [id number] [place] [address] Jun, [facility] [address] [id number] [place] [address] Jun, [facility] [address] [id number] [place] [address] Jun, [facility] [address] [id number] [place] [address] Jun, [facility] [address] [id number] [place] [address] Jun, [facility] [address] [id number] [place] [address] May, [facility] [address] [id number] [place] [address] May, [facility] [address] [id number] [place] [address] May, [facility] [address] [id number] [place] [address] May, 2012 [facility] [address] [id number] [place] [address] May, [facility] [address] [id number] [place] [address] May, [facility] [address] [id number] [place] [address] May, [facility] [address] [id number] [place] [address] May, [facility] [address] [id number] [place] [address] Apr, [facility] [address] [id number] [place] [address] Apr, [facility] [address] [id number] [place] [address] Apr, [facility] [address] [id number] [place] [address] Apr, [facility] [place] [facility] [address] [id number] [place] [address] Apr, [facility] [place] [facility] [address] [id number] [place] [address] Apr, [facility] [place] [facility] [address] [id number] [place] [address] Mar, [facility] [place] [facility] [address] [id number] [place] [address] Mar, [facility] [place] [facility] [address] [id number] [place] [address] Mar, [facility] [place] [facility] [address] [id number] [place] [address] Mar, [facility] [place] [facility] [address] [id number] [place] [address] Mar, [facility] [place] [facility] [address] [id number] [place] [address] Mar, [facility] [place] [facility] [address] [id number] [place] [address] Mar, [facility] [place] [facility] [address] [id number] [place] [address] Feb, [facility] [place] [facility] [address] [id number] [place] [address] 30 Feb, 2012 [facility] [place] [facility] [address] [id number] [place] [address] Feb, [facility] [place] [facility] [address] [facility] [id number] [place] [address] Feb, 2012 [facility] [place] [facility] [address] [id number] [place] [address] Feb, [facility] [place] [facility] [address] [id number] [place] [address] Feb, [facility] [place] [facility] [address] [id number] [place] [address] Jan, [facility] [place] [facility] [address] [id number] [place] [address] Jan, [facility] [place] [facility] [address] [id number] [place] [address] Jan, [facility] [place] [facility] [address] [id number] [place] [address] Jan, [facility] [place] [facility] [address] [id number] [place] [address] Jan, [facility] [place] [facility] [address] [id number] [place] [address] Jan, [facility] [place] [facility] [address] [id number] [place] [address] Jan, [facility] [place] [facility] [address] [id number] [place] [address] Jan, [facility] [place] [facility] [address] [id number] [place] [address] Jan, [facility] [place] [facility] [address] [id number] [place] [address] 29 Dec, 2012 [facility] [place] [facility] [address] [id number] [place] [address] Dec, 2012 [facility] [place] [facility] [address] [facility] [id number] [place] [address] Dec, 2012 [facility] [place] [facility] [address] [id number] [place] [address] 18 Dec, 2012 [facility] [place] [facility] [address] [id number] [place] [address] 17 Dec, 2012 [facility] [place] [facility] [address] [facility] [id number] [place] [address] 16 Dec, 2012 [facility] [place] [facility] [address] [id number] [place] [address] 15 Dec, 2012 [facility] [place] [facility] [address] [id number] [place] [address] 09 Dec, 2012 [facility] [place] [facility] [address] [id number] [place] [address] Dec, 2012 [facility] [place] [facility] [address] [id number] [place] [address] Dec, 2012 [facility] [place] [facility] [address] [id number] [place] [address] Dec, [facility] [place] [facility] [address] [id number] [place] [address] Dec, 2012 [facility] [place] [facility] [address] [id number] [place] [address] Dec, 2012 [facility] [place] [facility] [address] [id number] [place] [address] Nov, [facility] [place] [facility] [address] [id number] [place] [address] Nov, 2012 [facility] [place] [facility] [address] [id number] [place] [address] Nov, [facility] [place] [facility] [address] [id number] [place] [address] Nov, [facility] [place] [facility] [address] [facility] [id number] [place] [address] October, [facility] [place] [facility] [address] [id number] [place] [address] October, [facility] [place] [facility] [address] [id number] [place] [address] October, [facility] [place] [facility] [address] [id number] [place] [address] October, [facility] [place] [facility] [address] [id number] [place] [address] October, [facility] [place] [facility] [address] [id number] [place] [address] October, [facility] [place] [facility] [address] [id number] [place] [address] Sep, [facility] [place] [facility] [address] [id number] [place] [address] Sep, [facility] [place] [facility] [address] [id number] [place] [address] Sep, [facility] [place] [facility] [address] [id number] [place] [address] Sep, [facility] [place] [facility] [address] [id number] [place] [address] Sep, [facility] [place] [facility] [address] [id number] [place] [address] 16 Sep, 2012 [facility] [place] [facility] [address] [id number] [place] [address] Sep, [facility] [place] [facility] [address] [id number] [place] [address] Sep, [facility] [place] [facility] [address] [id number] [place] [address] Sep, [facility] [place] [facility] [address] [id number] [place] [address] Sep, [facility] [place] [facility] [address] [id number] [place] [address] Sep, [facility] [address] [id number] [place] [address] Aug, [facility] [place] [facility] [address] [id number] [place] [address] 25 Aug, 2012 [facility] [place] [facility] [address] [id number] [place] [address] Aug, [facility] [place] [facility] [address] [id number] [place] [address] Aug, [facility] [place] [facility] [address] [id number] [place] [address] 19 Aug, 2012 [facility] [address] [id number] [place] [address] 18 Aug, 2012 [facility] [place] [facility] [address] [id number] [place] [address] 17 Aug, 2012 [facility] [address] [id number] [place] [address] 15 Aug, 2012 [facility] [place] [facility] [address] [id number] [place] [address] 15 Aug, 2012 [facility] [place] [facility] [address] [id number] [place] [address] Aug, [facility] [place] [facility] [address] [id number] [place] [address] Aug, [facility] [place] [facility] [address] [id number] [place] [address] 07 Aug, 2012 [facility] [place] [facility] [address] [id number] [place] [address] 27 Jul, 2012 [facility] [place] [facility] [address] [id number] [place] [address] Jul, [facility] [place] [facility] [address] [id number] [place] [address] 26 Jul, 2012 [facility] [place] [facility] [address] [id number] [place] [address] 22 Jul, 2012 [facility] [place] [facility] [address] [id number] [place] [address] Jul, 2012 [facility] [address] [id number] [place] [address] Jul, 2012 [facility] [place] [facility] [address] [id number] [place] [address] Jul, 2012 [facility] [place] [facility] [address] [id number] [place] [address] Jul, [facility] [place] [facility] [address] [id number] [place] [address] Jul, [facility] [place] [facility] [address] [id number] [place] [address] Jul, [facility] [place] [facility] [address] [id number] [place] [address] May, [facility] [id number] [address] May, [facility] [place] [facility] [id number] [place] [address] May, [facility] [place] [facility] [address] [id number] [place] [address] May, [facility] [place] [facility] [id number] [place] [address] May, [facility] [place] [facility] [id number] [place] [address] Apr, [facility] [place] [address] [id number] [address] Apr, [facility] [place] [facility] [id number] [place] [address] Apr, [facility] [place] [facility] [id number] [place] [address] Mar, [facility] [id number] [id number] Mar, [facility] [place] [facility] [id number] [place] [address] Mar, [facility] [place] [id number] [id number] 13 Feb, 2012 [facility] [place] [facility] [address] [id number] [place] [address] Feb, [facility] [place] [facility] [address] [id number] [place] [address] Feb, [facility] [address] [id number] [id number] 10 Feb, 2012 [facility] [address] [id number] [id number] 07 Feb, 2012 [facility] [address] [id number] [id number] Jan, [facility] [place] [facility] [id number] [place] [address] Jan, [facility] [address] [id number] [id number] Jan, [facility] [id number] [id number] Jan, [facility] [id number] [id number] Jan, [facility] [place] [facility] [address] [id number] [place] [address] Jan, [facility] [place] [facility] [address] [id number] [place] [address] Jan, [facility] [place] [facility] [id number] [place] [address] Aug, [facility] [address] [facility] [id number] Aug, [facility] [place] [facility] [address] [id number] [place] [address] Jul, [facility] [place] [facility] [id number] [place] [address] Jul, [facility] [place] [facility] [id number] [place] [address] Jul, [facility] [address] [id number] [address] Jul, [facility] [place] [facility] [address] [id number] [place] [address] Jul, [facility] [address] [facility] [id number] Jul, [facility] [place] [facility] [id number] [place] [address] Jul, [facility] [place] [address] [facility] [id number] Jul, [facility] [place] [address] [facility] [address] Jul, [facility] [place] [address] [facility] [id number] Jul, [facility] [place] [facility] [id number] [place] [address] May, [facility] [place] [facility] [id number] [place] [address] May, [facility] [place] [facility] [id number] [place] [address] May, [facility] [place] [facility] [id number] [place] [address] Apr, [facility] [place] [facility] [id number] [place] [address] Jan, [facility] [place] [facility] [id number] [place] [address] Jan, [facility] [place] [facility] [id number] [place] [address] Dec, [facility] [place] [facility] [address] [id number] [place] [address] Dec, [facility] [place] [facility] [id number] [place] [address] 16 May, 2009 [facility] [place] [facility] [id number] [place] [address] Mar, [facility] [place] [facility] [id number] [place] [address] Mar, [facility] [place] [facility] [address] [facility] [id number] [place] [address] Jan, IMMUNIZATIONS No Known Immunizations SOCIAL HISTORY [...]
--- OUTSIDE RECORDS SUMMARY | 2020-01-28 12:32 | XMS REPORT ---
Author Author Heydi MARINO Organization [facility] [place] Address [address] [place] [address] Care Team Providers [employer] Architect Name Role Phone CELESTE MARINO Unavailable PROBLEMS Type Condition ICD9-CM Code XYO04-SA Code Onset Dates Condition S tatus SNOMED Code Problem Chronic pain syndrome G89.4 Active 816225004 Problem Sore throat J02.9 Active 94604597 3 Problem Choriocarcinoma C58 Active 1881 32812 Problem [facility] 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 Z79.01 Active 372139066 Problem History of venous thromboembolism V12.51 Active 914041854 Problem Cellulitis of unspecified part of limb L03.119 Active 714429054 Problem Gastroesophageal reflux disease without esophagitis K21.9 Active 187452932 Problem History of pulmonary embolism Z86.711 Active 882842985 Problem Pseudotumor cerebri G93.2 Active 35069058 Problem History of DVT (deep vein thrombosis) Z86.718 Active 975999177 ALLERGIES No Information ENCOUNTERS Encounter Location Date Diagnosis [place] [id number] [place] [address] Apr, 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 [place] [id number] [place] [address] Apr, [facility] 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 Z 79.01 [place] [id number] [place] [address] Apr, Cellulitis of unspecified part of limb L 03.119 ; Allergic contact dermatitis due to adhesives L23.1 and Chronic pain syndrome G89.4 [place] [address] [address] Apr, [place] [address] [address] Apr, [facility] 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 Z 79.01 ; Cellulitis of unspecified part of limb L03.119 ; Chronic pain syndrome G89.4 and Anxiety F41.9 [place] [address] [address] Apr, [place] [address] [address] Apr, [place] [address] [address] Mar, [place] [address] [address] Mar, [address] [address] Mar, Sore throat J02.9 ; Gastroesophageal ref lux disease without esophagitis K21.9 ; Pseudotumor cerebri G93.2 ; Chronic pain syndrome G89.4 ; Choriocarcinoma C58 ; History of pulmonary embolism Z86.711 ; History of DVT (deep vein thrombosis) Z86.718 ; Anxiety F41.9 and Tachycardia R00.[address] [address] Feb, Anxiety 300.00 and Chronic pain 338.[address] [address] Feb, [address] [address] Feb, [place] [address] [address] Jan, [facility] 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 t herapy V58.61 and Dysuria 788.[address] [address] Jan, Dysuria 788.1 [place] [address] [address] Jan, Anxiety 300.00 and Chronic pain 338.29 [place] [address] [address] Jan, [place] [address] [address] Jan, [place] [address] [address] Jan, [place] [address] [address] Dec, Weakness 780.79 [place] [address] [address] Dec, 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 [place] [address] [address] Dec, Palpitations 785.1 ; Tremor 781.0 ; Weak ness 780.79 ; 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 and Yeast vaginitis 112.1 [place] [address] [address] Dec, [place] [address] [address] Dec, Cervicalgia 723.1 ; Tachycardia 785.0 ; Pseudotumor cerebri 348.2 and History of venous thromboembolism V12.51 [place] [address] [address] Nov, [place] [address] [address] Nov, [place] [address] [address] Nov, Tachycardia 785.0 ; Pseudotumor cerebri 348.2 ; Anxiety 300.00 and History of venous thromboembolism V12.51 [place] [address] [address] Nov, [place] [address] [address] Nov, [facility] [address] [id number] [place] [address] 16 Nov, 2014 [facility] [address] [id number] [place] [address] Nov, [facility] [address] [id number] [place] [address] Nov, [facility] [id number] [place] [address] Nov, [facility] [address] [id number] [place] [address] Nov, [facility] [id number] [place] [address] October, [facility] [id number] [place] [address] October, [facility] [id number] [place] [address] October, Pain in thoracic spine 724.1 and Tachyca rdia 785.0 [facility] [id number] [place] [address] October, [facility] [id number] [place] [address] October, [facility] [id number] [place] [address] Sep, [facility] [id number] [place] [address] Sep, [facility] [address] [id number] [place] [address] Aug, [facility] [id number] [place] [address] Aug, [facility] [id number] [place] [address] Aug, [facility] [id number] [place] [address] Aug, [facility] [address] [id number] [place] [address] Aug, [facility] [address] [id number] [place] [address] Aug, 2014 [facility] [address] [id number] [place] [address] Aug, [facility] [address] [id number] [place] [address] Aug, [facility] [address] [id number] [place] [address] Aug, [facility] [address] [id number] [place] [address] Aug, [facility] [address] [id number] [place] [address] Aug, [facility] [address] [id number] [place] [address] Aug, [facility] [address] [id number] [place] [address] Jul, 2014 [facility] [address] [id number] [place] [address] Jul, 2014 [facility] [address] [id number] [place] [address] Jul, 2014 [facility] [address] [id number] [place] [address] Jul, 2014 [facility] [address] [id number] [place] [address] Jul, 2014 [facility] [address] [id number] [place] [address] Jul, 2014 [facility] [address] [id number] [place] [address] Jul, 2014 [facility] [address] [id number] [place] [address] Jul, 2014 [facility] [address] [id number] [place] [address] 20 Jul, 2014 [facility] [address] [id number] [place] [address] 20 Jul, 2014 [facility] [address] [id number] [place] [address] 19 Jul, 2014 [facility] [address] [id number] [place] [address] 19 Jul, 2014 [facility] [address] [id number] [place] [address] 17 Jul, 2014 [facility] [address] [id number] [place] [address] 17 Jul, 2014 [facility] [address] [id number] [place] [address] 16 Jul, 2014 [facility] [address] [id number] [place] [address] 16 Jul, 2014 [facility] [address] [id number] [place] [address] 16 Jul, 2014 [facility] [address] [id number] [place] [address] 16 Jul, 2014 [facility] [address] [id number] [place] [address] 13 Jul, 2014 [facility] [address] [id number] [place] [address] 13 Jul, 2014 [facility] [address] [id number] [place] [address] 13 Jul, 2014 [facility] [address] [id number] [place] [address] 13 Jul, 2014 [facility] [address] [id number] [place] [address] 12 Jul, 2014 [facility] [address] [id number] [place] [address] 12 Jul, 2014 [facility] [address] [id number] [place] [address] Jul, [facility] [address] [facility] [id number] [place] [address] Jul, [facility] [address] [id number] [place] [address] Jul, [facility] [address] [id number] [place] [address] Jul, [facility] [address] [id number] [place] [address] Jul, [facility] [address] [id number] [place] [address] Jul, [facility] [address] [id number] [place] [address] Jun, [facility] [address] [id number] [place] [address] Jun, [facility] [address] [id number] [place] [address] Jun, [facility] [address] [id number] [place] [address] Jun, [facility] [address] [id number] [place] [address] Jun, [facility] [address] [id number] [place] [address] Jun, [facility] [address] [id number] [place] [address] Jun, [facility] [address] [id number] [place] [address] Jun, [facility] [address] [id number] [place] [address] Jun, [facility] [address] [id number] [place] [address] Jun, [facility] [address] [id number] [place] [address] Jun, [facility] [address] [id number] [place] [address] Jun, [facility] [address] [id number] [place] [address] Jun, [facility] [address] [id number] [place] [address] Jun, [facility] [address] [id number] [place] [address] Jun, [facility] [address] [id number] [place] [address] Jun, [facility] [address] [id number] [place] [address] Jun, [facility] [address] [id number] [place] [address] Jun, [facility] [address] [id number] [place] [address] Jun, [facility] [address] [id number] [place] [address] Jun, [facility] [address] [id number] [place] [address] May, [facility] [address] [id number] [place] [address] May, [facility] [address] [id number] [place] [address] May, [facility] [address] [id number] [place] [address] 31 May, 2014 [facility] [address] [id number] [place] [address] May, [facility] [address] [id number] [place] [address] May, [facility] [address] [id number] [place] [address] May, [facility] [address] [id number] [place] [address] May, [facility] [address] [facility] [id number] [place] [address] May, [facility] [address] [facility] [id number] [place] [address] May, [facility] [address] [id number] [place] [address] May, [facility] [address] [id number] [place] [address] 18 May, 2014 [facility] [address] [facility] [id number] [place] [address] 18 May, 2014 [facility] [address] [id number] [place] [address] 17 May, 2014 [facility] [address] [id number] [place] [address] 16 May, 2014 [facility] [address] [id number] [place] [address] 16 May, 2014 [facility] [address] [id number] [place] [address] 15 May, 2014 [facility] [address] [id number] [place] [address] 15 May, 2014 [facility] [address] [id number] [place] [address] 12 May, 2014 [facility] [address] [id number] [place] [address] May, [facility] [address] [id number] [place] [address] May, [facility] [address] [id number] [place] [address] May, [facility] [address] [id number] [place] [address] May, [facility] [address] [id number] [place] [address] May, [facility] [address] [id number] [place] [address] May, [facility] [address] [id number] [place] [address] May, [facility] [address] [id number] [place] [address] May, [facility] [address] [id number] [place] [address] May, [facility] [address] [id number] [place] [address] May, [facility] [address] [id number] [place] [address] May, [facility] [address] [id number] [place] [address] May, [facility] [address] [id number] [place] [address] May, [facility] [address] [id number] [place] [address] May, [facility] [address] [id number] [place] [address] May, [facility] [address] [id number] [place] [address] Apr, [facility] [address] [id number] [place] [address] Apr, [facility] [address] [id number] [place] [address] Apr, [facility] [address] [id number] [place] [address] Apr, [facility] [address] [id number] [place] [address] Apr, [facility] [address] [id number] [place] [address] Apr, [facility] [address] [id number] [place] [address] Apr, [facility] [address] [id number] [place] [address] Apr, [facility] [address] [id number] [place] [address] Apr, [facility] [address] [id number] [place] [address] Apr, [facility] [address] [id number] [place] [address] Mar, [facility] [address] [id number] [place] [address] Mar, [facility] [address] [id number] [place] [address] Mar, [facility] [address] [id number] [place] [address] 31 Mar, 2014 [facility] [address] [id number] [place] [address] 30 Mar, 2014 [facility] [address] [id number] [place] [address] 30 Mar, 2014 [facility] [address] [id number] [place] [address] Mar, [facility] [address] [id number] [place] [address] 17 Mar, 2014 [facility] [address] [id number] [place] [address] 15 Mar, 2014 [facility] [address] [id number] [place] [address] 15 Mar, 2014 [facility] [address] [id number] [place] [address] 15 Mar, 2014 [facility] [address] [id number] [place] [address] 15 Mar, 2014 [facility] [address] [id number] [place] [address] 09 Mar, 2014 [facility] [address] [id number] [place] [address] Mar, 2013 [facility] [address] [id number] [place] [address] Mar, 2013 [facility] [address] [facility] [id number] [place] [address] Mar, 2013 [facility] [address] [id number] [place] [address] Mar, 2013 [facility] [address] [id number] [place] [address] Mar, 2013 [facility] [address] [facility] [id number] [place] [address] Mar, 2013 [facility] [address] [id number] [place] [address] Mar, 2013 [facility] [address] [id number] [place] [address] 05 Sep, 2013 [facility] [address] [id number] [place] [address] 05 Sep, 2013 [facility] [address] [id number] [place] [address] 04 Sep, 2013 [facility] [address] [id number] [place] [address] 04 Sep, 2013 [facility] [address] [id number] [place] [address] 03 Sep, 2013 [facility] [address] [id number] [place] [address] 03 Sep, 2013 [facility] [address] [id number] [place] [address] 02 Sep, 2013 [facility] [address] [id number] [place] [address] 02 Sep, 2013 [facility] [address] [id number] [place] [address] Sep, 2013 [facility] [address] [id number] [place] [address] 02 Sep, 2013 [facility] [address] [id number] [place] [address] Jan, [facility] [address] [id number] [facility] [address] Jan, [facility] [address] [facility] [id number] [place] [address] Jan, [facility] [address] [id number] [place] [address] Jan, [facility] [address] [id number] [place] [address] Jan, [facility] [address] [id number] [place] [address] Jan, [facility] [address] [id number] [place] [address] Jan, [facility] [address] [id number] [place] [address] Jan, [facility] [address] [id number] [place] [address] Jan, [facility] [address] [id number] [place] [address] Jan, [facility] [address] [id number] [place] [address] Jan, [facility] [address] [id number] [place] [address] Jan, [facility] [address] [id number] [place] [address] Dec, [facility] [address] [id number] [place] [address] Dec, [facility] [address] [id number] [place] [address] Dec, [facility] [address] [id number] [place] [address] Dec, [facility] [address] [id number] [place] [address] Dec, [facility] [address] [facility] [id number] [place] [address] 14 Dec, 2013 [facility] [address] [facility] [id number] [place] [address] Dec, 2013 [facility] [address] [id number] [place] [address] 10 Dec, 2013 [facility] [address] [id number] [place] [address] Dec, 2013 [facility] [address] [facility] [id number] [place] [address] Dec, 2013 [facility] [address] [id number] [place] [address] Dec, 2013 [facility] [address] [id number] [place] [address] Dec, 2013 [facility] [address] [id number] [place] [address] Nov, [facility] [address] [id number] [place] [address] Nov, [facility] [address] [id number] [place] [address] Nov, [facility] [address] [id number] [place] [address] Nov, [facility] [address] [id number] [place] [address] 17 Nov, 2013 [facility] [address] [id number] [place] [address] Nov, [facility] [address] [id number] [place] [address] Nov, [facility] [address] [id number] [place] [address] Nov, [facility] [address] [id number] [place] [address] 05 Nov, 2013 [facility] [address] [id number] [place] [address] Nov, [facility] [address] [facility] [id number] [place] [address] Nov, [facility] [address] [facility] [id number] [place] [address] Nov, [facility] [address] [id number] [place] [address] Nov, [facility] [address] [id number] [place] [address] Nov, [facility] [address] [facility] [id number] [place] [address] October, [facility] [address] [id number] [place] [address] October, [facility] [address] [id number] [place] [address] October, [facility] [address] [id number] [place] [address] October, [facility] [address] [id number] [place] [address] October, [facility] [address] [id number] [place] [address] October, [facility] [address] [id number] [place] [address] October, [facility] [address] [id number] [place] [address] October, [facility] [address] [id number] [place] [address] October, [facility] [address] [id number] [place] [address] October, [facility] [address] [id number] [place] [address] October, [facility] [address] [id number] [place] [address] October, [facility] [address] [id number] [place] [address] Sep, [facility] [address] [facility] [id number] [place] [address] Sep, [facility] [address] [id number] [place] [address] Sep, [facility] [address] [id number] [place] [address] Sep, [facility] [address] [id number] [place] [address] Sep, [facility] [address] [id number] [place] [address] Sep, [facility] [address] [id number] [place] [address] Aug, [facility] [address] [id number] [place] [address] Aug, [facility] [address] [id number] [place] [address] Aug, [facility] [address] [id number] [place] [address] Aug, [facility] [address] [id number] [place] [address] Aug, [facility] [address] [id number] [place] [address] Aug, [facility] [address] [id number] [place] [address] Jul, [facility] [address] [id number] [place] [address] Jul, [facility] [address] [id number] [place] [address] Jul, [facility] [address] [id number] [place] [address] Jul, [facility] [address] [id number] [place] [address] Jul, [facility] [address] [facility] [id number] [place] [address] Jul, [facility] [place] [facility] [address] [id number] [place] [address] Jul, [facility] [place] [facility] [address] [id number] [place] [address] Jul, [facility] [place] [facility] [address] [id number] [place] [address] Jul, [facility] [place] [facility] [address] [id number] [place] [address] Jul, [facility] [place] [facility] [address] [id number] [place] [address] Jun, [facility] [place] [facility] [address] [id number] [place] [address] Jun, [facility] [place] [facility] [address] [id number] [place] [address] Jun, [facility] [place] [facility] [address] [id number] [place] [address] Jun, [facility] [place] [facility] [address] [id number] [place] [address] Jun, [facility] [place] [facility] [address] [id number] [place] [address] Jun, [facility] [place] [facility] [address] [id number] [place] [address] Jun, [facility] [place] [facility] [address] [id number] [place] [address] Jun, [facility] [place] [facility] [address] [id number] [place] [address] May, [facility] [place] [facility] [address] [id number] [place] [address] May, [facility] [place] [facility] [address] [id number] [place] [address] May, [facility] [place] [facility] [address] [id number] [place] [address] May, [facility] [place] [facility] [address] [id number] [place] [address] May, [facility] [place] [facility] [address] [id number] [place] [address] May, [facility] [place] [facility] [address] [id number] [place] [address] May, [facility] [place] [facility] [address] [id number] [place] [address] May, [facility] [place] [facility] [address] [id number] [place] [address] Apr, [facility] [place] [facility] [address] [id number] [place] [address] Apr, [facility] [place] [facility] [address] [id number] [place] [address] Apr, [facility] [place] [facility] [address] [id number] [place] [address] Apr, [facility] [place] [facility] [address] [id number] [place] [address] Apr, [facility] [place] [facility] [address] [id number] [place] [address] Apr, [facility] [place] [facility] [address] [id number] [place] [address] Mar, [facility] [place] [facility] [address] [id number] [place] [address] Mar, [facility] [place] [facility] [address] [id number] [place] [address] Mar, [facility] [place] [facility] [id number] [place] [address] Mar, [facility] [place] [facility] [address] [id number] [place] [address] Mar, [facility] [place] [facility] [address] [id number] [place] [address] Mar, [facility] [place] [facility] [address] [id number] [place] [address] Mar, [facility] [place] [facility] [address] [id number] [place] [address] 30 Feb, 2013 [facility] [place] [facility] [address] [id number] [place] [address] 30 Feb, 2013 [facility] [place] [facility] [address] [id number] [place] [address] Feb, [facility] [place] [facility] [address] [id number] [place] [address] Feb, [facility] [place] [facility] [address] [id number] [place] [address] Feb, [facility] [place] [facility] [address] [id number] [place] [address] Feb, [facility] [place] [facility] [address] [id number] [place] [address] Jan, [facility] [place] [facility] [address] [id number] [place] [address] Jan, [facility] [place] [facility] [address] [id number] [place] [address] Jan, [facility] [place] [facility] [address] [id number] [place] [address] Jan, [facility] [place] [facility] [address] [id number] [place] [address] Jan, [facility] [place] [facility] [address] [id number] [place] [address] Jan, [facility] [place] [facility] [address] [id number] [place] [address] Jan, [facility] [place] [facility] [address] [id number] [place] [address] Jan, [facility] [place] [facility] [address] [id number] [place] [address] Jan, [facility] [place] [facility] [address] [id number] [place] [address] Dec, 2012 [facility] [place] [facility] [address] [id number] [facility] [address] Dec, 2012 [facility] [place] [facility] [address] [facility] [id number] [place] [place] [address] Dec, 2012 [facility] [place] [facility] [address] [id number] [facility] [address] 18 Dec, 2012 [facility] [place] [facility] [address] [facility] [id number] [facility] [address] 17 Dec, 2012 [facility] [place] [facility] [address] [facility] [id number] [facility] [place] [address] 16 Dec, 2012 [facility] [place] [facility] [address] [facility] [id number] [facility] [place] [address] 15 Dec, 2012 [facility] [place] [facility] [address] [id number] [place] [address] 09 Dec, 2012 [facility] [place] [facility] [address] [id number] [place] [address] 08 Dec, 2012 [facility] [place] [facility] [address] [facility] [id number] [place] [address] 08 Dec, 2012 [facility] [place] [facility] [address] [id number] [place] [address] Dec, 2012 [facility] [place] [facility] [address] [id number] [place] [address] Dec, 2012 [facility] [place] [facility] [address] [id number] [place] [address] Dec, 2012 [facility] [place] [facility] [address] [facility] [id number] [facility] [place] [address] Nov, 2012 [facility] [place] [facility] [address] [id number] [place] [address] Nov, 2012 [facility] [place] [facility] [address] [facility] [id number] [place] [address] Nov, 2012 [facility] [place] [facility] [address] [id number] [place] [address] Nov, 2012 [facility] [place] [facility] [address] [id number] [place] [address] October, [facility] [place] [facility] [address] [id number] [place] [address] October, [facility] [place] [facility] [address] [id number] [place] [address] October, [facility] [place] [facility] [address] [id number] [place] [address] October, [facility] [place] [facility] [address] [id number] [place] [address] October, [facility] [place] [facility] [address] [id number] [place] [address] October, [facility] [place] [facility] [address] [id number] [place] [address] Sep, [facility] [place] [facility] [address] [id number] [place] [address] Sep, [facility] [place] [facility] [address] [id number] [place] [address] Sep, [facility] [place] [facility] [address] [id number] [place] [address] Sep, [facility] [place] [facility] [address] [id number] [place] [address] Sep, [facility] [place] [facility] [address] [id number] [place] [address] 16 Sep, 2012 [facility] [place] [facility] [address] [id number] [place] [address] Sep, [facility] [place] [facility] [address] [id number] [place] [address] Sep, [facility] [place] [facility] [address] [id number] [place] [address] Sep, [facility] [place] [facility] [address] [id number] [place] [address] Sep, [facility] [place] [facility] [address] [id number] [place] [address] Sep, [facility] [place] [facility] [address] [id number] [place] [address] Aug, [facility] [place] [facility] [address] [id number] [place] [address] 25 Aug, 2012 [facility] [place] [facility] [address] [id number] [place] [address] Aug, [facility] [place] [facility] [address] [id number] [place] [address] Aug, [facility] [place] [facility] [address] [id number] [place] [address] 19 Aug, 2012 [facility] [place] [facility] [address] [id number] [place] [address] 18 Aug, 2012 [facility] [place] [facility] [address] [id number] [place] [address] 17 Aug, 2012 [facility] [place] [facility] [address] [id number] [place] [address] 15 Aug, 2012 [facility] [place] [facility] [address] [id number] [place] [address] 15 Aug, 2012 [facility] [place] [facility] [address] [id number] [place] [address] Aug, [facility] [place] [facility] [address] [id number] [place] [address] 11 Aug, 2012 [facility] [place] [facility] [address] [id number] [place] [address] 07 Aug, 2012 [facility] [place] [facility] [address] [id number] [place] [address] 27 Jul, 2012 [facility] [place] [facility] [address] [id number] [place] [address] Jul, [facility] [place] [facility] [address] [id number] [place] [address] 26 Jul, 2012 [facility] [place] [facility] [address] [id number] [place] [address] Jul, [facility] [place] [facility] [address] [id number] [place] [address] Jul, [facility] [address] [id number] [place] [address] Jul, [facility] [place] [facility] [address] [id number] [place] [address] Jul, [facility] [place] [facility] [id number] [place] [address] Jul, [facility] [place] [facility] [id number] [place] [address] Jul, [facility] [place] [facility] [address] [id number] [place] [address] Jul, [facility] [place] [facility] [id number] [place] [address] May, [facility] [place] [address] [id number] [id number] May, [facility] [place] [facility] [id number] [place] [address] May, [facility] [place] [facility] [id number] [place] [address] May, [facility] [place] [facility] [id number] [place] [address] May, [facility] [id number] [place] [address] Apr, [facility] [place] [address] [id number] [id number] Apr, [facility] [place] [facility] [id number] [place] [address] Apr, [facility] [place] [facility] [id number] [place] [address] Mar, [facility] [place] [address] [id number] [id number] Mar, [facility] [place] [facility] [id number] [place] [address] Mar, [facility] [place] [address] [id number] [id number] Feb, [facility] [place] [facility] [address] [id number] [place] [address] Feb, [facility] [place] [facility] [address] [id number] [place] [address] Feb, [facility] [address] [facility] [id number] 10 Feb, 2012 [facility] [address] [id number] [id number] 07 Feb, 2012 [facility] [address] [id number] [id number] Jan, [facility] [place] [facility] [id number] [place] [address] Jan, [facility] [address] [facility] [id number] Jan, [facility] [place] [id number] [id number] Jan, [facility] [id number] [id number] Jan, [facility] [place] [facility] [address] [id number] [place] [address] Jan, [facility] [place] [facility] [address] [id number] [place] [address] Jan, [facility] [place] [facility] [address] [id number] [place] [address] Aug, [facility] [address] [id number] [id number] Aug, [facility] [place] [facility] [address] [id number] [place] [address] Jul, [facility] [place] [facility] [id number] [place] [address] Jul, [facility] [place] [facility] [address] [id number] [place] [address] Jul, [facility] [address] [id number] [id number] Jul, [facility] [place] [facility] [address] [id number] [place] [address] Jul, [facility] [place] [address] [id number] [place] [id number] Jul, [facility] [place] [facility] [address] [id number] [place] [address] Jul, [facility] [place] [address] [id number] [place] [id number] Jul, [facility] [address] [id number] [id number] Jul, [facility] [address] [facility] [id number] Jul, [facility] [place] [facility] [id number] [place] [address] May, [facility] [place] [facility] [id number] [place] [address] May, [facility] [place] [facility] [id number] [place] [address] May, [facility] [place] [facility] [id number] [place] [address] Apr, [facility] [place] [facility] [id number] [place] [address] Jan, [facility] [place] [facility] [id number] [place] [address] Jan, [facility] [place] [facility] [id number] [place] [address] Dec, [facility] [place] [facility] [address] [id number] [place] [address] 15 Dec, 2009 [facility] [place] [facility] [id number] [place] [address] 16 May, 2009 [facility] [place] [facility] [id number] [place] [address] Mar, [facility] [place] [facility] [id number] [place] [address] Mar, [facility] [place] [facility] [address] [facility] [id number] [place] [address] 14 Jan, 2009 IMMUNIZATIONS No Known Immunizations [...]
--- OUTSIDE RECORDS SUMMARY | 2020-01-28 12:32 | XMS REPORT ---
Author Author Heydi MARINO Organization [facility] Address [address] [place] [address] Care Team Providers Care Locomotive Inspector Name Role Phone CELESTE MARINO Unavailable PROBLEMS Type Condition ICD9-CM Code [id number] Code Onset Dates Condition S tatus SNOMED Code Problem Chronic pain syndrome G89.4 Active 363697624 Problem Sore throat J02.9 Active 23502360 3 Problem Choriocarcinoma C58 Active 1881 28189 Problem half-way 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 Z79.01 Active 138951166 Problem History of venous thromboembolism V12.51 Active 258411288 Problem Cellulitis of unspecified part of limb L03.119 Active 666856517 Problem Gastroesophageal reflux disease without esophagitis K21.9 Active 509732188 Problem History of pulmonary embolism Z86.711 Active 683003007 Problem Pseudotumor cerebri G93.2 Active 60507830 Problem History of DVT (deep vein thrombosis) Z86.718 Active 307601615 ALLERGIES No Information ENCOUNTERS Encounter Location Date Diagnosis [facility] [place] [id number] [place] [address] Apr, manager parking (current) use of 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 Z79.01 [place] [id number] [place] [address] Apr, half-way 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 Z 79.01 [place] [id number] [place] [address] Apr, Cellulitis of unspecified part of limb L 03.119 ; Allergic contact dermatitis due to adhesives L23.1 and Chronic pain syndrome G89.4 [place] [address] [address] Apr, [place] [address] [address] Apr, half-way 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 Z 79.01 ; Cellulitis of unspecified part of limb L03.119 ; Chronic pain syndrome G89.4 and Anxiety F41.9 [place] [address] [address] Apr, [place] [address] [address] Apr, [place] [address] [address] Mar, [place] [address] [address] Mar, [address] [address] Mar, Sore throat J02.9 ; Gastroesophageal ref lux disease without esophagitis K21.9 ; Pseudotumor cerebri G93.2 ; Chronic pain syndrome G89.4 ; Choriocarcinoma C58 ; History of pulmonary embolism Z86.711 ; History of DVT (deep vein thrombosis) Z86.718 ; Anxiety F41.9 and Tachycardia R00.[address] [address] Feb, Anxiety 300.00 and Chronic pain 338.[address] [address] Feb, [address] [address] Feb, [place] [address] [address] Jan, half-way 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 t herapy V58.61 and Dysuria 788.[address] [address] Jan, Dysuria 788.1 [place] [address] [address] Jan, Anxiety 300.00 and Chronic pain 338.29 [place] [address] [address] Jan, [place] [address] [address] Jan, [place] [address] [address] Jan, [place] [address] [address] Dec, Weakness 780.79 [place] [address] [address] Dec, manager parking 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 t herapy V58.61 [place] [address] [address] Dec, Palpitations 785.1 ; Tremor 781.0 ; Weak ness 780.79 ; manager parking 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 therapy V58.61 and Yeast vaginitis 112.1 [place] [address] [address] Dec, [place] [address] [address] Dec, Cervicalgia 723.1 ; Tachycardia 785.0 ; Pseudotumor cerebri 348.2 and History of venous thromboembolism V12.51 [place] [address] [address] Nov, [place] [address] [address] Nov, [place] [address] [address] Nov, Tachycardia 785.0 ; Pseudotumor cerebri 348.2 ; Anxiety 300.00 and History of venous thromboembolism V12.51 [place] [address] [address] Nov, [place] [address] [address] Nov, [facility] [address] [id number] [place] [address] 16 Nov, 2014 [facility] [address] [id number] [place] [address] Nov, [facility] [address] [id number] [place] [address] Nov, [facility] [id number] [place] [address] Nov, [facility] [address] [id number] [place] [address] Nov, [facility] [id number] [place] [address] October, [facility] [id number] [place] [address] October, [facility] [id number] [place] [address] October, Pain in thoracic spine 724.1 and Tachyca rdia 785.0 [facility] [id number] [place] [address] October, [facility] [id number] [place] [address] October, [facility] [id number] [place] [address] Sep, [facility] [id number] [place] [address] Sep, [facility] [address] [id number] [place] [address] Aug, [facility] [id number] [place] [address] Aug, [facility] [id number] [place] [address] Aug, [facility] [id number] [place] [address] Aug, [facility] [address] [id number] [place] [address] Aug, [facility] [address] [id number] [place] [address] Aug, 2014 [facility] [address] [id number] [place] [address] Aug, [facility] [address] [id number] [place] [address] Aug, [facility] [address] [id number] [place] [address] Aug, [facility] [address] [id number] [place] [address] Aug, [facility] [address] [id number] [place] [address] Aug, [facility] [address] [id number] [place] [address] Aug, [facility] [address] [id number] [place] [address] Jul, 2014 [facility] [address] [id number] [place] [address] Jul, 2014 [facility] [address] [id number] [place] [address] Jul, 2014 [facility] [address] [id number] [place] [address] Jul, 2014 [facility] [address] [id number] [place] [address] Jul, 2014 [facility] [address] [id number] [place] [address] Jul, 2014 [facility] [address] [id number] [place] [address] Jul, 2014 [facility] [address] [id number] [place] [address] Jul, 2014 [facility] [address] [id number] [place] [address] 20 Jul, 2014 [facility] [address] [id number] [place] [address] 20 Jul, 2014 [facility] [address] [id number] [place] [address] 19 Jul, 2014 [facility] [address] [id number] [place] [address] 19 Jul, 2014 [facility] [address] [id number] [place] [address] 17 Jul, 2014 [facility] [address] [id number] [place] [address] 17 Jul, 2014 [facility] [address] [id number] [place] [address] 16 Jul, 2014 [facility] [address] [id number] [place] [address] 16 Jul, 2014 [facility] [address] [id number] [place] [address] 16 Jul, 2014 [facility] [address] [id number] [place] [address] 16 Jul, 2014 [facility] [address] [id number] [place] [address] 13 Jul, 2014 [facility] [address] [id number] [place] [address] 13 Jul, 2014 [facility] [address] [id number] [place] [address] 13 Jul, 2014 [facility] [address] [id number] [place] [address] 13 Jul, 2014 [facility] [address] [id number] [place] [address] 12 Jul, 2014 [facility] [address] [id number] [place] [address] 12 Jul, 2014 [facility] [address] [id number] [place] [address] Jul, [facility] [address] [id number] [place] [address] Jul, [facility] [address] [id number] [place] [address] Jul, [facility] [address] [id number] [place] [address] Jul, [facility] [address] [id number] [place] [address] Jul, [facility] [address] [id number] [place] [address] Jul, [facility] [address] [id number] [place] [address] Jun, [facility] [address] [id number] [place] [address] Jun, [facility] [address] [id number] [place] [address] Jun, [facility] [address] [id number] [place] [address] Jun, [facility] [address] [id number] [place] [address] Jun, [facility] [address] [id number] [place] [address] Jun, [facility] [address] [id number] [place] [address] Jun, [facility] [address] [id number] [place] [address] Jun, [facility] [address] [id number] [place] [address] Jun, [facility] [address] [id number] [place] [address] Jun, [facility] [address] [id number] [place] [address] Jun, [facility] [address] [id number] [place] [address] Jun, [facility] [address] [id number] [place] [address] Jun, [facility] [address] [id number] [place] [address] Jun, [facility] [address] [id number] [place] [address] Jun, [facility] [address] [id number] [place] [address] Jun, [facility] [address] [id number] [place] [address] Jun, [facility] [address] [id number] [place] [address] Jun, [facility] [address] [id number] [place] [address] Jun, [facility] [address] [id number] [place] [address] Jun, [facility] [address] [id number] [place] [address] May, [facility] [address] [id number] [place] [address] May, [facility] [address] [id number] [place] [address] May, [facility] [address] [id number] [place] [address] 31 May, 2014 [facility] [address] [id number] [place] [address] May, [facility] [address] [id number] [place] [address] May, [facility] [address] [id number] [place] [address] May, [facility] [address] [id number] [place] [address] May, [facility] [address] [id number] [place] [address] May, [facility] [address] [id number] [place] [address] May, [facility] [address] [id number] [place] [address] May, [facility] [address] [id number] [place] [address] 18 May, 2014 [facility] [address] [id number] [place] [address] 18 May, 2014 [facility] [address] [id number] [place] [address] 17 May, 2014 [facility] [address] [id number] [place] [address] 16 May, 2014 [facility] [address] [id number] [place] [address] 16 May, 2014 [facility] [address] [id number] [place] [address] 15 May, 2014 [facility] [address] [id number] [place] [address] 15 May, 2014 [facility] [address] [id number] [place] [address] 12 May, 2014 [facility] [address] [id number] [place] [address] May, [facility] [address] [id number] [place] [address] May, [facility] [address] [id number] [place] [address] May, [facility] [address] [id number] [place] [address] May, [facility] [address] [id number] [place] [address] May, [facility] [address] [id number] [place] [address] May, [facility] [address] [id number] [place] [address] May, [facility] [address] [id number] [place] [address] May, [facility] [address] [id number] [place] [address] May, [facility] [address] [id number] [place] [address] May, [facility] [address] [id number] [place] [address] May, [facility] [address] [id number] [place] [address] May, [facility] [address] [id number] [place] [address] May, [facility] [address] [id number] [place] [address] May, [facility] [address] [id number] [place] [address] May, [facility] [address] [id number] [place] [address] Apr, [facility] [address] [id number] [place] [address] Apr, [facility] [address] [id number] [place] [address] Apr, [facility] [address] [id number] [place] [address] Apr, [facility] [address] [id number] [place] [address] Apr, [facility] [address] [id number] [place] [address] Apr, [facility] [address] [id number] [place] [address] Apr, [facility] [address] [id number] [place] [address] Apr, [facility] [address] [id number] [place] [address] Apr, [facility] [address] [id number] [place] [address] Apr, [facility] [address] [id number] [place] [address] Mar, [facility] [address] [id number] [place] [address] Mar, [facility] [address] [id number] [place] [address] Mar, [facility] [address] [id number] [place] [address] 31 Mar, 2014 [facility] [address] [id number] [place] [address] 30 Mar, 2014 [facility] [address] [id number] [place] [address] 30 Mar, 2014 [facility] [address] [id number] [place] [address] Mar, [facility] [address] [id number] [place] [address] 17 Mar, 2014 [facility] [address] [id number] [place] [address] 15 Mar, 2014 [facility] [address] [id number] [place] [address] 15 Mar, 2014 [facility] [address] [id number] [place] [address] 15 Mar, 2014 [facility] [address] [id number] [place] [address] 15 Mar, 2014 [facility] [address] [id number] [place] [address] 09 Mar, 2014 [facility] [address] [id number] [place] [address] Mar, 2013 [facility] [address] [id number] [place] [address] Mar, 2013 [facility] [address] [id number] [place] [address] Mar, 2013 [facility] [address] [id number] [place] [address] Mar, 2013 [facility] [address] [id number] [place] [address] Mar, 2013 [facility] [address] [id number] [place] [address] Mar, 2013 [facility] [address] [id number] [place] [address] Mar, 2013 [facility] [address] [id number] [place] [address] 05 Sep, 2013 [facility] [address] [id number] [place] [address] 05 Sep, 2013 [facility] [address] [id number] [place] [address] 04 Sep, 2013 [facility] [address] [id number] [place] [address] 04 Sep, 2013 [facility] [address] [id number] [place] [address] 03 Sep, 2013 [facility] [address] [id number] [place] [address] 03 Sep, 2013 [facility] [address] [id number] [place] [address] 02 Sep, 2013 [facility] [address] [id number] [place] [address] 02 Sep, 2013 [facility] [address] [id number] [place] [address] Sep, 2013 [facility] [address] [id number] [place] [address] 02 Sep, 2013 [facility] [address] [id number] [place] [address] Jan, [facility] [address] [id number] [place] [address] Jan, [facility] [address] [id number] [place] [address] Jan, [facility] [address] [id number] [place] [address] Jan, [facility] [address] [id number] [place] [address] Jan, [facility] [address] [id number] [place] [address] Jan, [facility] [address] [id number] [place] [address] Jan, [facility] [address] [id number] [place] [address] Jan, [facility] [address] [id number] [place] [address] Jan, [facility] [address] [id number] [place] [address] Jan, [facility] [address] [id number] [place] [address] Jan, [facility] [address] [id number] [place] [address] Jan, [facility] [address] [id number] [place] [address] Dec, [facility] [address] [id number] [place] [address] Dec, [facility] [address] [id number] [place] [address] Dec, [facility] [address] [id number] [place] [address] Dec, [facility] [address] [id number] [place] [address] Dec, [facility] [address] [id number] [place] [address] 14 Dec, 2013 [facility] [address] [id number] [place] [address] Dec, 2013 [facility] [address] [id number] [place] [address] 10 Dec, 2013 [facility] [address] [id number] [place] [address] Dec, 2013 [facility] [address] [id number] [place] [address] Dec, 2013 [facility] [address] [id number] [place] [address] Dec, 2013 [facility] [address] [id number] [place] [address] Dec, 2013 [facility] [address] [id number] [place] [address] Nov, [facility] [address] [id number] [place] [address] Nov, [facility] [address] [id number] [place] [address] Nov, [facility] [address] [id number] [place] [address] Nov, [facility] [address] [id number] [place] [address] 17 Nov, 2013 [facility] [address] [id number] [place] [address] Nov, [facility] [address] [id number] [place] [address] Nov, [facility] [address] [id number] [place] [address] Nov, [facility] [address] [id number] [place] [address] 05 Nov, 2013 [facility] [address] [id number] [place] [address] Nov, [facility] [address] [id number] [place] [address] Nov, [facility] [address] [id number] [place] [address] Nov, [facility] [address] [id number] [place] [address] Nov, [facility] [address] [id number] [place] [address] Nov, [facility] [address] [id number] [place] [address] October, [facility] [address] [id number] [place] [address] October, [facility] [address] [id number] [place] [address] October, [facility] [address] [id number] [place] [address] October, [facility] [address] [id number] [place] [address] October, [facility] [address] [id number] [place] [address] October, [facility] [address] [id number] [place] [address] October, [facility] [address] [id number] [place] [address] October, [facility] [address] [id number] [place] [address] October, [facility] [address] [id number] [place] [address] October, [facility] [address] [id number] [place] [address] October, [facility] [address] [id number] [place] [address] October, [facility] [address] [id number] [place] [address] Sep, [facility] [place] [facility] [address] [id number] [place] [address] Sep, [facility] [place] [facility] [address] [id number] [place] [address] Sep, [facility] [place] [facility] [address] [id number] [place] [address] Sep, [facility] [place] [facility] [address] [id number] [place] [address] Sep, [facility] [place] [facility] [address] [id number] [place] [address] Sep, [facility] [place] [facility] [address] [id number] [place] [address] Aug, [facility] [place] [facility] [address] [id number] [place] [address] Aug, [facility] [place] [facility] [address] [id number] [place] [address] Aug, [facility] [place] [facility] [address] [id number] [place] [address] Aug, [facility] [place] [facility] [address] [id number] [place] [address] Aug, [facility] [place] [facility] [address] [id number] [place] [address] Aug, [facility] [place] [facility] [address] [id number] [place] [address] Jul, [facility] [place] [facility] [address] [id number] [place] [address] Jul, [facility] [place] [facility] [address] [id number] [place] [address] Jul, [facility] [place] [facility] [address] [id number] [place] [address] Jul, [facility] [place] [facility] [address] [id number] [place] [address] Jul, [facility] [place] [facility] [address] [id number] [place] [address] Jul, [facility] [place] [facility] [address] [id number] [place] [address] Jul, [facility] [place] [facility] [address] [id number] [place] [address] Jul, [facility] [place] [facility] [address] [id number] [place] [address] Jul, [facility] [place] [facility] [address] [id number] [place] [address] Jul, [facility] [place] [facility] [address] [id number] [place] [address] Jun, [facility] [place] [facility] [address] [id number] [place] [address] Jun, [facility] [place] [facility] [address] [id number] [place] [address] Jun, [facility] [place] [facility] [address] [id number] [place] [address] Jun, [facility] [place] [facility] [address] [id number] [place] [address] Jun, [facility] [place] [facility] [address] [id number] [place] [address] Jun, [facility] [place] [facility] [address] [id number] [place] [address] Jun, [facility] [place] [facility] [address] [id number] [place] [address] Jun, [facility] [place] [facility] [address] [id number] [place] [address] May, [facility] [place] [facility] [address] [id number] [place] [address] May, [facility] [place] [facility] [address] [id number] [place] [address] May, [facility] [place] [facility] [address] [id number] [place] [address] May, [facility] [place] [facility] [address] [id number] [place] [address] May, [facility] [place] [facility] [address] [id number] [place] [address] May, [facility] [place] [facility] [address] [id number] [place] [address] May, [facility] [place] [facility] [address] [id number] [place] [address] May, [facility] [place] [facility] [address] [id number] [place] [address] Apr, [facility] [place] [facility] [address] [id number] [place] [address] Apr, [facility] [place] [facility] [address] [id number] [place] [address] Apr, [facility] [place] [facility] [address] [id number] [place] [address] Apr, [facility] [place] [facility] [address] [id number] [place] [address] Apr, [facility] [place] [facility] [address] [id number] [place] [address] Apr, [facility] [place] [facility] [address] [id number] [place] [address] Mar, [facility] [place] [facility] [address] [id number] [place] [address] Mar, [facility] [place] [facility] [address] [id number] [place] [address] Mar, [facility] [place] [facility] [address] [id number] [place] [address] Mar, [facility] [place] [facility] [address] [id number] [place] [address] Mar, [facility] [place] [facility] [address] [id number] [place] [address] Mar, [facility] [place] [facility] [address] [id number] [place] [address] Mar, [facility] [place] [facility] [address] [id number] [place] [address] 30 Feb, 2013 [facility] [place] [facility] [address] [id number] [place] [address] 30 Feb, 2013 [facility] [place] [facility] [address] [id number] [place] [address] Feb, [facility] [place] [facility] [address] [id number] [place] [address] Feb, [facility] [place] [facility] [address] [id number] [place] [address] Feb, [facility] [place] [facility] [address] [id number] [place] [address] Feb, [facility] [place] [facility] [address] [id number] [place] [address] Jan, [facility] [place] [facility] [address] [id number] [place] [address] Jan, [facility] [place] [facility] [address] [id number] [place] [address] Jan, [facility] [place] [facility] [address] [id number] [place] [address] Jan, [facility] [place] [facility] [address] [id number] [place] [address] Jan, [facility] [place] [facility] [address] [id number] [place] [address] Jan, [facility] [place] [facility] [address] [id number] [place] [address] Jan, [facility] [place] [facility] [address] [id number] [place] [address] Jan, [facility] [place] [facility] [address] [id number] [place] [address] Jan, [facility] [place] [facility] [address] [id number] [place] [address] Dec, 2012 [facility] [place] [facility] [address] [id number] [place] [address] Dec, 2012 [facility] [place] [facility] [address] [id number] [place] [address] Dec, 2012 [facility] [place] [facility] [address] [id number] [place] [address] 18 Dec, 2012 [facility] [place] [facility] [address] [id number] [place] [address] 17 Dec, 2012 [facility] [place] [facility] [address] [id number] [place] [address] 16 Dec, 2012 [facility] [place] [facility] [address] [id number] [place] [address] 15 Dec, 2012 [facility] [place] [facility] [address] [id number] [place] [address] 09 Dec, 2012 [facility] [place] [facility] [address] [id number] [place] [address] 08 Dec, 2012 [facility] [place] [facility] [address] [id number] [place] [address] 08 Dec, 2012 [facility] [place] [facility] [address] [id number] [place] [address] Dec, 2012 [facility] [place] [facility] [address] [id number] [place] [address] Dec, 2012 [facility] [place] [facility] [address] [id number] [place] [address] Dec, 2012 [facility] [place] [facility] [address] [id number] [place] [address] Nov, 2012 [facility] [place] [facility] [address] [id number] [place] [address] Nov, 2012 [facility] [place] [facility] [address] [id number] [place] [address] Nov, 2012 [facility] [place] [facility] [address] [id number] [place] [address] Nov, 2012 [facility] [place] [facility] [address] [id number] [place] [address] October, [facility] [place] [facility] [address] [id number] [place] [address] October, [facility] [place] [facility] [address] [id number] [place] [address] October, [facility] [place] [facility] [address] [id number] [place] [address] October, [facility] [place] [facility] [address] [id number] [place] [address] October, [facility] [place] [facility] [address] [id number] [place] [address] October, [facility] [place] [facility] [address] [id number] [place] [address] Sep, [facility] [place] [facility] [address] [id number] [place] [address] Sep, [facility] [place] [facility] [address] [id number] [place] [address] Sep, [facility] [place] [facility] [address] [id number] [place] [address] Sep, [facility] [place] [facility] [address] [id number] [place] [address] Sep, [facility] [place] [facility] [address] [id number] [place] [address] 16 Sep, 2012 [facility] [place] [facility] [address] [id number] [place] [address] Sep, [facility] [place] [facility] [address] [id number] [place] [address] Sep, [facility] [place] [facility] [address] [id number] [place] [address] Sep, [facility] [place] [facility] [address] [id number] [place] [address] Sep, [facility] [place] [facility] [address] [id number] [place] [address] Sep, [facility] [place] [facility] [address] [id number] [place] [address] Aug, [facility] [place] [facility] [address] [id number] [place] [address] 25 Aug, 2012 [facility] [place] [facility] [address] [id number] [place] [address] Aug, [facility] [place] [facility] [address] [id number] [place] [address] Aug, [facility] [place] [facility] [address] [id number] [place] [address] 19 Aug, 2012 [facility] [place] [facility] [address] [id number] [place] [address] 18 Aug, 2012 [facility] [place] [facility] [address] [id number] [place] [address] 17 Aug, 2012 [facility] [place] [facility] [address] [id number] [place] [address] 15 Aug, 2012 [facility] [place] [facility] [address] [id number] [place] [address] 15 Aug, 2012 [facility] [place] [facility] [address] [id number] [place] [address] Aug, [facility] [place] [facility] [address] [id number] [place] [address] 11 Aug, 2012 [facility] [place] [facility] [address] [id number] [place] [address] 07 Aug, 2012 [facility] [place] [facility] [address] [id number] [place] [address] 27 Jul, 2012 [facility] [place] [facility] [address] [id number] [place] [address] Jul, [facility] [place] [facility] [address] [id number] [place] [address] 26 Jul, 2012 [facility] [place] [facility] [address] [id number] [place] [address] Jul, [facility] [place] [facility] [address] [id number] [place] [address] Jul, [facility] [address] [id number] [place] [address] Jul, [facility] [place] [facility] [address] [id number] [place] [address] Jul, [facility] [place] [facility] [id number] [place] [address] Jul, [facility] [place] [facility] [id number] [place] [address] Jul, [facility] [place] [facility] [address] [id number] [place] [address] Jul, [facility] [place] [facility] [id number] [place] [address] May, [facility] [place] [address] [id number] [id number] May, [facility] [place] [facility] [id number] [place] [address] May, [facility] [place] [facility] [id number] [place] [address] May, [facility] [place] [facility] [id number] [place] [address] May, [facility] [id number] [place] [address] Apr, [facility] [place] [address] [id number] [address] Apr, [facility] [place] [facility] [id number] [place] [address] Apr, [facility] [place] [facility] [id number] [place] [address] Mar, [facility] [place] [address] [id number] [id number] Mar, [facility] [place] [facility] [id number] [place] [address] Mar, [facility] [place] [address] [id number] [id number] Feb, [facility] [place] [facility] [address] [id number] [place] [address] Feb, [facility] [place] [facility] [address] [id number] [place] [address] Feb, [facility] [address] [id number] [place] [id number] 10 Feb, 2012 [facility] [address] [id number] [place] [id number] 07 Feb, 2012 [facility] [address] [id number] [place] [id number] Jan, [facility] [place] [facility] [id number] [place] [address] Jan, [facility] [address] [id number] [place] [id number] Jan, [facility] [place] [id number] [place] [id number] Jan, [facility] [address] [id number] [place] [id number] Jan, [facility] [place] [facility] [address] [id number] [place] [address] Jan, [facility] [place] [facility] [address] [id number] [place] [address] Jan, [facility] [place] [facility] [address] [id number] [place] [address] Aug, [facility] [address] [id number] [address] Aug, [facility] [place] [facility] [address] [id number] [place] [address] Jul, [facility] [place] [facility] [id number] [place] [address] Jul, [facility] [place] [facility] [address] [id number] [place] [address] Jul, [facility] [address] [id number] [place] [id number] Jul, [facility] [place] [facility] [address] [id number] [place] [address] Jul, [facility] [place] [address] [id number] [id number] Jul, [facility] [place] [facility] [address] [id number] [place] [address] Jul, [facility] [place] [address] [id number] [id number] Jul, [facility] [place] [address] [facility] [id number] Jul, [facility] [place] [address] [facility] [id number] Jul, [facility] [place] [facility] [id number] [place] [address] May, [facility] [place] [facility] [id number] [place] [address] May, [facility] [place] [facility] [id number] [place] [address] May, [facility] [place] [facility] [id number] [place] [address] Apr, [facility] [place] [facility] [id number] [place] [address] Jan, [facility] [place] [facility] [id number] [place] [address] Jan, [facility] [place] [facility] [id number] [place] [address] Dec, [facility] [place] [facility] [address] [id number] [place] [address] 15 Dec, 2009 [facility] [place] [facility] [id number] [place] [address] 16 May, 2009 [facility] [place] [facility] [id number] [place] [address] Mar, [facility] [place] [facility] [address] [id number] [place] [address] Mar, [facility] [place] [facility] [address] [id number] [place] [address] 14 Jan, 2009 IMMUNIZATIONS No Known Immunizations [...]
--- OUTSIDE RECORDS SUMMARY | 2020-01-28 12:33 | XMS REPORT ---
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 Active 784181049 Problem History of venous thromboembolism V12.51 Active 073667075 Problem Cellulitis of unspecified part of limb L03.119 Active 459055772 Problem Gastroesophageal reflux disease without esophagitis K21.9 Active 514467893 Problem History of pulmonary embolism Z86.711 Active 233350593 Problem Pseudotumor cerebri G93.2 Active 91027318 Problem History of DVT (deep vein thrombosis) Z86.718 Active 921122825 ALLERGIES No Information ENCOUNTERS Encounter Location Date Diagnosis [place] [address] [address] Apr, remote computer terminal operator (current) use of 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 Z79.01 [place] [address] [address] Apr, nursing home 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 Z 79.01 [place] [address] [address] Apr, Cellulitis of unspecified part of limb L 03.119 ; Allergic contact dermatitis due to adhesives L23.1 and Chronic pain syndrome G89.4 [place] [address] [address] Apr, [place] [address] [address] Apr, 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 Z 79.01 ; Cellulitis of unspecified part of limb L03.119 ; Chronic pain syndrome G89.4 and Anxiety F41.9 [place] [address] [address] Apr, [place] [address] [address] Apr, [place] [address] [address] Mar, [place] [address] [address] Mar, [address] [address] Mar, Sore throat J02.9 ; Gastroesophageal ref lux disease without esophagitis K21.9 ; Pseudotumor cerebri G93.2 ; Chronic pain syndrome G89.4 ; Choriocarcinoma C58 ; History of pulmonary embolism Z86.711 ; History of DVT (deep vein thrombosis) Z86.718 ; Anxiety F41.9 and Tachycardia R00.[address] [address] Feb, Anxiety 300.00 and Chronic pain 338.[address] [address] Feb, [place] [address] [address] Feb, [place] [address] [address] Jan, 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 t herapy V58.61 and Dysuria 788.[address] [address] Jan, Dysuria 788.[address] [address] Jan, Anxiety 300.00 and Chronic pain 338.29 [place] [address] [address] Jan, [place] [address] [address] Jan, [place] [address] [address] Jan, [place] [address] [address] Dec, Weakness 780.79 [place] [address] [address] Dec, 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 t herapy V58.61 [place] [address] [address] Dec, Palpitations 785.1 ; Tremor 781.0 ; Weak ness 780.79 ; 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 therapy V58.61 and Yeast vaginitis 112.1 [place] [address] [address] Dec, [place] [address] [address] Dec, Cervicalgia 723.1 ; Tachycardia 785.0 ; Pseudotumor cerebri 348.2 and History of venous thromboembolism V12.51 [place] [address] [address] Nov, [place] [address] [address] Nov, [place] [address] [address] Nov, Tachycardia 785.0 ; Pseudotumor cerebri 348.2 ; Anxiety 300.00 and History of venous thromboembolism V12.51 [place] [address] [address] Nov, [place] [address] [address] Nov, [facility] [address] [id number] [place] [address] 16 Nov, 2014 [facility] [address] [place] [id number] [place] [address] 12 Nov, 2014 [facility] [address] [id number] [place] [address] Nov, [facility] [address] [place] [id number] [place] [address] 08 Nov, 2014 [facility] [address] [id number] [place] [address] Nov, [facility] [address] [place] [id number] [place] [address] October, [facility] [address] [place] [id number] [place] [address] October, [facility] [address] [place] [id number] [place] [address] October, Pain in thoracic spine 724.1 and Tachyca rdia 785.0 [facility] [address] [place] [id number] [place] [address] October, [facility] [address] [place] [id number] [place] [address] October, [facility] [address] [place] [id number] [place] [address] 14 Sep, 2014 [facility] [address] [place] [id number] [place] [address] Sep, [facility] [address] [place] [id number] [place] [address] Aug, [facility] [address] [place] [id number] [place] [address] Aug, [facility] [address] [id number] [place] [address] Aug, [facility] [address] [place] [id number] [place] [address] Aug, [facility] [address] [id number] [place] [address] Aug, 2014 [facility] [address] [id number] [place] [address] Aug, 2014 [facility] [address] [id number] [place] [address] Aug, 2014 [facility] [address] [id number] [place] [address] Aug, 2014 [facility] [address] [id number] [place] [address] Aug, 2014 [facility] [address] [id number] [place] [address] Aug, 2014 [facility] [address] [id number] [place] [address] Aug, 2014 [facility] [address] [id number] [place] [address] Aug, 2014 [facility] [address] [id number] [place] [address] Jul, 2014 [facility] [address] [id number] [place] [address] Jul, 2014 [facility] [address] [id number] [place] [address] Jul, 2014 [facility] [address] [id number] [place] [address] Jul, 2014 [facility] [address] [id number] [place] [address] Jul, 2014 [facility] [address] [id number] [place] [address] Jul, 2014 [facility] [address] [id number] [place] [address] Jul, 2014 [facility] [address] [id number] [place] [address] Jul, 2014 [facility] [address] [id number] [place] [address] 20 Jul, 2014 [facility] [address] [id number] [place] [address] 20 Jul, 2014 [facility] [address] [id number] [place] [address] 19 Jul, 2014 [facility] [address] [id number] [place] [address] 19 Jul, 2014 [facility] [address] [id number] [place] [address] 17 Jul, 2014 [facility] [address] [id number] [place] [address] 17 Jul, 2014 [facility] [address] [id number] [place] [address] 16 Jul, 2014 [facility] [address] [id number] [place] [address] 16 Jul, 2014 [facility] [address] [id number] [place] [address] 16 Jul, 2014 [facility] [address] [id number] [place] [address] 16 Jul, 2014 [facility] [address] [id number] [place] [address] 13 Jul, 2014 [facility] [address] [id number] [place] [address] 13 Jul, 2014 [facility] [address] [id number] [place] [address] 13 Jul, 2014 [facility] [address] [id number] [place] [address] 13 Jul, 2014 [facility] [address] [id number] [place] [address] 12 Jul, 2014 [facility] [address] [id number] [place] [address] 12 Jul, 2014 [facility] [address] [id number] [facility] [place] [place] [place] [address] Jul, [facility] [address] [facility] [id number] [place] [address] Jul, [facility] [address] [id number] [place] [address] Jul, [facility] [address] [id number] [place] [address] Jul, [facility] [address] [id number] [place] [address] Jul, [facility] [address] [id number] [place] [address] Jul, [facility] [address] [id number] [place] [address] Jun, [facility] [address] [id number] [place] [address] Jun, [facility] [address] [id number] [place] [address] Jun, [facility] [address] [id number] [place] [address] Jun, [facility] [address] [id number] [place] [address] Jun, [facility] [address] [id number] [place] [address] Jun, [facility] [address] [id number] [place] [address] Jun, [facility] [address] [id number] [place] [address] Jun, [facility] [address] [id number] [place] [address] Jun, [facility] [address] [id number] [place] [address] Jun, [facility] [address] [id number] [place] [address] Jun, [facility] [address] [id number] [place] [address] Jun, [facility] [address] [id number] [place] [address] Jun, [facility] [address] [id number] [place] [address] Jun, [facility] [address] [id number] [place] [address] Jun, [facility] [address] [id number] [place] [address] Jun, [facility] [address] [id number] [place] [address] Jun, [facility] [address] [id number] [place] [address] Jun, [facility] [address] [id number] [place] [address] Jun, [facility] [address] [id number] [place] [address] Jun, [facility] [address] [id number] [place] [address] May, [facility] [address] [id number] [place] [address] May, [facility] [address] [id number] [place] [address] May, [facility] [address] [id number] [place] [address] May, [facility] [address] [id number] [place] [address] May, [facility] [address] [id number] [place] [address] May, [facility] [address] [id number] [place] [address] May, [facility] [address] [id number] [place] [address] May, [facility] [address] [facility] [id number] [place] [address] May, [facility] [address] [id number] [place] [address] May, [facility] [address] [id number] [place] [address] May, [facility] [address] [id number] [place] [address] May, [facility] [address] [id number] [place] [address] 18 May, 2014 [facility] [address] [id number] [place] [address] 17 May, 2014 [facility] [address] [id number] [place] [address] 16 May, 2014 [facility] [address] [id number] [place] [address] 16 May, 2014 [facility] [address] [id number] [place] [address] 15 May, 2014 [facility] [address] [id number] [place] [address] 15 May, 2014 [facility] [address] [id number] [place] [address] 12 May, 2014 [facility] [address] [id number] [place] [address] May, [facility] [address] [id number] [place] [address] May, [facility] [address] [id number] [place] [address] May, [facility] [address] [id number] [place] [address] May, [facility] [address] [id number] [place] [address] May, [facility] [address] [id number] [place] [address] May, [facility] [address] [id number] [place] [address] May, [facility] [address] [id number] [place] [address] May, [facility] [address] [id number] [place] [address] May, [facility] [address] [id number] [place] [address] May, [facility] [address] [id number] [place] [address] May, [facility] [address] [id number] [place] [address] May, [facility] [address] [id number] [place] [address] May, [facility] [address] [id number] [place] [address] May, [facility] [address] [id number] [place] [address] May, [facility] [address] [id number] [place] [address] Apr, [facility] [address] [id number] [place] [address] Apr, [facility] [address] [id number] [place] [address] Apr, [facility] [address] [id number] [place] [address] Apr, [facility] [address] [id number] [place] [address] Apr, [facility] [address] [id number] [place] [address] Apr, [facility] [address] [id number] [place] [address] Apr, [facility] [address] [id number] [place] [address] Apr, [facility] [address] [id number] [place] [address] Apr, [facility] [address] [id number] [place] [address] Apr, [facility] [address] [id number] [place] [address] Mar, [facility] [address] [id number] [place] [address] Mar, [facility] [address] [id number] [place] [address] Mar, [facility] [address] [id number] [place] [address] Mar, [facility] [address] [id number] [place] [address] Mar, [facility] [address] [id number] [place] [address] 30 Mar, 2014 [facility] [address] [id number] [place] [address] Mar, [facility] [address] [id number] [place] [address] 17 Mar, 2013 [facility] [address] [id number] [place] [address] 15 Mar, 2014 [facility] [address] [id number] [place] [address] 15 Mar, 2014 [facility] [address] [id number] [place] [address] 15 Mar, 2014 [facility] [address] [id number] [place] [address] 15 Mar, 2014 [facility] [address] [id number] [place] [address] 09 Mar, 2014 [facility] [address] [id number] [place] [address] Mar, 2013 [facility] [address] [id number] [place] [address] Mar, 2013 [facility] [address] [id number] [place] [address] Mar, 2013 [facility] [address] [id number] [place] [address] Mar, 2013 [facility] [address] [id number] [place] [address] Mar, 2013 [facility] [address] [id number] [place] [address] Mar, 2013 [facility] [address] [id number] [place] [address] Mar, 2013 [facility] [address] [id number] [place] [address] 05 Sep, 2013 [facility] [address] [id number] [place] [address] 05 Sep, 2013 [facility] [address] [id number] [place] [address] 04 Sep, 2013 [facility] [address] [id number] [place] [address] 04 Sep, 2013 [facility] [address] [id number] [place] [address] 03 Sep, 2013 [facility] [address] [id number] [place] [address] 03 Sep, 2013 [facility] [address] [id number] [place] [address] Sep, 2013 [facility] [address] [id number] [place] [address] Sep, 2013 [facility] [address] [id number] [place] [address] Sep, 2013 [facility] [address] [id number] [place] [address] Sep, 2013 [facility] [address] [id number] [facility] [place] [address] Jan, [facility] [address] [id number] [facility] [place] [address] Jan, [facility] [address] [facility] [id number] [facility] [place] [address] Jan, [facility] [address] [facility] [id number] [place] [address] Jan, [facility] [address] [facility] [id number] [facility] [place] [address] Jan, [facility] [address] [id number] [facility] [place] [address] Jan, [facility] [address] [facility] [id number] [place] [address] Jan, [facility] [address] [id number] [place] [address] Jan, [facility] [address] [id number] [place] [address] Jan, [facility] [address] [id number] [place] [address] Jan, [facility] [address] [facility] [id number] [place] [address] Jan, [facility] [address] [id number] [place] [address] Jan, [facility] [address] [id number] [place] [address] Dec, [facility] [address] [id number] [place] [address] Dec, [facility] [address] [id number] [place] [address] Dec, [facility] [address] [facility] [id number] [place] [address] Dec, [facility] [address] [id number] [place] [address] Dec, [facility] [address] [facility] [id number] [place] [address] 14 Dec, 2013 [facility] [address] [facility] [id number] [place] [address] Dec, 2013 [facility] [address] [facility] [id number] [place] [address] Dec, 2013 [facility] [address] [id number] [place] [address] Dec, 2013 [facility] [address] [facility] [id number] [place] [address] Dec, 2013 [facility] [address] [id number] [place] [address] Dec, 2013 [facility] [address] [id number] [place] [address] Dec, 2013 [facility] [address] [id number] [place] [address] Nov, 2013 [facility] [address] [id number] [place] [address] Nov, [facility] [address] [id number] [place] [address] Nov, [facility] [address] [id number] [place] [address] Nov, [facility] [address] [id number] [place] [address] Nov, [facility] [address] [id number] [place] [address] Nov, [facility] [address] [id number] [place] [address] Nov, [facility] [address] [id number] [place] [address] Nov, [facility] [address] [id number] [place] [address] Nov, [facility] [address] [id number] [place] [address] Nov, [facility] [address] [id number] [place] [address] Nov, [facility] [address] [id number] [place] [address] Nov, [facility] [address] [id number] [place] [address] Nov, [facility] [address] [id number] [place] [address] Nov, [facility] [address] [id number] [place] [address] October, [facility] [address] [id number] [place] [address] October, [facility] [address] [id number] [place] [address] October, [facility] [address] [id number] [place] [address] October, [facility] [address] [id number] [place] [address] October, [facility] [address] [id number] [place] [address] October, [facility] [address] [id number] [place] [address] October, [facility] [address] [id number] [place] [address] October, [facility] [address] [id number] [place] [address] October, [facility] [address] [id number] [place] [address] October, [facility] [address] [id number] [place] [address] October, [facility] [address] [id number] [place] [address] October, [facility] [address] [id number] [facility] [address] Sep, [facility] [facility] [address] [id number] [facility] [place] [address] Sep, [facility] [address] [facility] [id number] [facility] [place] [address] Sep, [facility] [address] [id number] [place] [address] Sep, [facility] [address] [id number] [facility] [place] [address] Sep, [facility] [address] [facility] [id number] [facility] [place] [address] Sep, [facility] [address] [id number] [place] [address] Aug, [facility] [address] [id number] [place] [address] Aug, [facility] [address] [id number] [place] [address] Aug, [facility] [address] [facility] [id number] [place] [address] Aug, [facility] [address] [id number] [place] [address] Aug, [facility] [address] [id number] [place] [address] Aug, [facility] [address] [id number] [place] [address] Jul, [facility] [address] [facility] [id number] [place] [address] Jul, [facility] [address] [id number] [place] [address] Jul, [facility] [address] [id number] [place] [address] Jul, [facility] [address] [id number] [place] [address] Jul, [facility] [address] [facility] [id number] [facility] [place] [address] Jul, [facility] [address] [id number] [facility] [place] [address] Jul, [facility] [address] [id number] [place] [address] Jul, [facility] [address] [id number] [place] [address] Jul, [facility] [address] [id number] [place] [address] Jul, [facility] [address] [id number] [place] [address] Jun, [facility] [address] [id number] [place] [address] Jun, [facility] [address] [id number] [place] [address] Jun, [facility] [address] [id number] [place] [address] Jun, [facility] [address] [id number] [place] [address] Jun, [facility] [address] [id number] [place] [address] Jun, [facility] [address] [id number] [place] [address] Jun, [facility] [address] [id number] [place] [address] Jun, [facility] [address] [id number] [place] [address] May, [facility] [address] [id number] [place] [address] May, [facility] [address] [id number] [place] [address] May, [facility] [address] [id number] [place] [address] May, 2012 [facility] [address] [id number] [place] [address] May, [facility] [address] [id number] [place] [address] May, [facility] [address] [id number] [place] [address] May, [facility] [address] [id number] [place] [address] May, [facility] [address] [id number] [place] [address] Apr, [facility] [address] [id number] [place] [address] Apr, [facility] [address] [id number] [place] [address] Apr, [facility] [address] [id number] [place] [address] Apr, [facility] [address] [id number] [place] [address] Apr, [facility] [address] [id number] [place] [address] Apr, [facility] [address] [id number] [place] [address] Mar, [facility] [address] [id number] [place] [address] Mar, [facility] [address] [id number] [place] [address] Mar, [facility] [address] [id number] [place] [address] Mar, [facility] [address] [id number] [place] [address] Mar, [facility] [address] [id number] [place] [address] Mar, [facility] [address] [id number] [place] [address] Mar, [facility] [address] [id number] [place] [address] Feb, [facility] [address] [id number] [place] [address] 30 Feb, 2012 [facility] [address] [id number] [place] [address] Feb, [facility] [address] [facility] [id number] [place] [address] Feb, 2012 [facility] [address] [id number] [place] [address] Feb, [facility] [address] [id number] [place] [address] Feb, [facility] [address] [id number] [place] [address] Jan, [facility] [address] [id number] [place] [address] Jan, [facility] [address] [id number] [place] [address] Jan, [facility] [address] [id number] [place] [address] Jan, [facility] [address] [id number] [place] [address] Jan, [facility] [address] [id number] [place] [address] Jan, [facility] [address] [id number] [place] [address] Jan, [facility] [address] [id number] [place] [address] Jan, [facility] [address] [id number] [place] [address] Jan, [facility] [address] [id number] [place] [address] 29 Dec, 2012 [facility] [address] [id number] [facility] [place] [address] Dec, 2012 [facility] [address] [facility] [id number] [facility] [place] [address] Dec, 2012 [facility] [address] [id number] [facility] [place] [address] 18 Dec, 2012 [facility] [address] [id number] [place] [address] 17 Dec, 2012 [facility] [address] [facility] [id number] [facility] [place] [address] 16 Dec, 2012 [facility] [address] [id number] [facility] [place] [address] 15 Dec, 2012 [facility] [address] [id number] [facility] [place] [address] 09 Dec, 2012 [facility] [address] [id number] [facility] [place] [address] Dec, 2012 [facility] [address] [id number] [facility] [place] [address] Dec, 2012 [facility] [address] [id number] [facility] [place] [address] Dec, [facility] [address] [id number] [place] [address] Dec, 2012 [facility] [address] [id number] [place] [address] Dec, 2012 [facility] [address] [id number] [facility] [place] [address] Nov, [facility] [address] [id number] [place] [address] Nov, 2012 [facility] [address] [id number] [place] [address] Nov, [facility] [address] [id number] [place] [address] Nov, [facility] [address] [facility] [id number] [facility] [place] [address] October, [facility] [address] [id number] [place] [address] October, [facility] [address] [id number] [place] [address] October, [facility] [address] [id number] [place] [address] October, [facility] [address] [id number] [facility] [place] [address] October, [facility] [address] [id number] [facility] [place] [address] October, [facility] [address] [id number] [place] [address] Sep, [facility] [address] [id number] [place] [address] Sep, [facility] [address] [id number] [place] [address] Sep, [facility] [address] [id number] [place] [address] Sep, [facility] [address] [id number] [place] [address] Sep, [facility] [address] [id number] [place] [address] 16 Sep, 2012 [facility] [address] [id number] [place] [address] Sep, [facility] [address] [id number] [place] [address] Sep, [facility] [address] [id number] [place] [address] Sep, [facility] [address] [id number] [place] [address] Sep, [facility] [address] [id number] [place] [address] Sep, [facility] [address] [id number] [place] [address] Aug, [facility] [address] [id number] [place] [address] 25 Aug, 2012 [facility] [address] [id number] [place] [address] Aug, [facility] [address] [id number] [place] [address] Aug, [facility] [address] [id number] [place] [address] 19 Aug, 2012 [facility] [address] [id number] [place] [address] 18 Aug, 2012 [facility] [address] [id number] [place] [address] 17 Aug, 2012 [facility] [address] [id number] [place] [address] 15 Aug, 2012 [facility] [address] [id number] [place] [address] 15 Aug, 2012 [facility] [address] [id number] [place] [address] Aug, [facility] [address] [id number] [place] [address] Aug, [facility] [address] [id number] [place] [address] 07 Aug, 2012 [facility] [address] [id number] [place] [address] 27 Jul, 2012 [facility] [address] [id number] [place] [address] Jul, [facility] [address] [id number] [place] [address] 26 Jul, 2012 [facility] [address] [id number] [place] [address] 22 Jul, 2012 [facility] [address] [id number] [place] [address] Jul, 2012 [facility] [address] [id number] [place] [address] Jul, 2012 [facility] [address] [id number] [place] [address] Jul, 2012 [facility] [address] [id number] [place] [address] Jul, [facility] [address] [id number] [place] [address] Jul, [facility] [address] [id number] [place] [address] Jul, [facility] [address] [id number] [place] [address] May, [facility] [id number] [id number] May, [facility] [id number] [place] [address] May, [facility] [address] [id number] [place] [address] May, [facility] [id number] [place] [address] May, [facility] [address] [id number] [place] [address] Apr, [facility] [place] [address] [id number] [id number] Apr, [facility] [id number] [place] [address] Apr, [facility] [id number] [place] [address] Mar, [facility] [id number] [id number] Mar, [facility] [id number] [place] [address] Mar, [facility] [place] [id number] [id number] 13 Feb, 2012 [facility] [address] [id number] [place] [address] Feb, [facility] [address] [id number] [place] [address] Feb, [facility] [address] [id number] [id number] 10 Feb, 2012 [facility] [address] [id number] [id number] 07 Feb, 2012 [facility] [address] [id number] [id number] Jan, [facility] [id number] [place] [address] Jan, [facility] [address] [id number] [id number] Jan, [facility] [id number] [id number] Jan, [facility] [id number] [id number] Jan, [facility] [address] [id number] [place] [address] Jan, [facility] [address] [id number] [place] [address] Jan, [facility] [id number] [place] [address] Aug, [facility] [address] [id number] [id number] Aug, [facility] [address] [id number] [place] [address] Jul, [facility] [id number] [place] [address] Jul, [facility] [id number] [place] [address] Jul, [facility] [address] [id number] [id number] Jul, [facility] [address] [id number] [place] [address] Jul, [facility] [address] [id number] [id number] Jul, [facility] [id number] [place] [address] Jul, [facility] [place] [address] [facility] [id number] Jul, [facility] [place] [address] [id number] [id number] Jul, [facility] [place] [address] [id number] [id number] Jul, [facility] [id number] [place] [address] May, [facility] [id number] [place] [address] May, [facility] [id number] [place] [address] May, [facility] [id number] [place] [address] Apr, [facility] [id number] [place] [address] Jan, [facility] [id number] [place] [address] Jan, [facility] [id number] [place] [address] Dec, [facility] [address] [id number] [place] [address] Dec, [facility] [id number] [place] [address] 16 May, 2009 [facility] [id number] [place] [address] Mar, [facility] [id number] [place] [address] Mar, [facility] [address] [facility] [id number] [place] [address] Jan, IMMUNIZATIONS No Known Immunizations SOCIAL HISTORY Never Assessed REASON FOR VISIT PLAN OF CARE VITAL SIGNS Height 63 in 2013-11-08 Weight 194 lbs 2013-11-08 Temperature 99.6 degrees Fahrenheit 2013-11-08 Heart Rate 88 bpm 2013-11-08 Respiratory Rate 18 2013-11-08 Blood pressure systolic 132 mmHg 2013-11-08 Blood pressure diastolic 84 mmHg 2013-11-08 MEDICATIONS Unknown Medications RESULTS No Results PROCEDURES [...]
--- OUTSIDE RECORDS SUMMARY | 2020-01-28 12:33 | XMS REPORT ---
Author Author Heydi HARRIS Organization [facility] Address [address] [place] [address] Care Team Providers Care Ship Purser Name Role Phone ARTIE HARRIS Unavailable PROBLEMS Type Condition ICD9-CM Code TBI33-FJ Code Onset Dates Condition S tatus SNOMED Code Problem Chronic pain syndrome G89.4 Active 763033283 Problem Sore throat J02.9 Active 62395631 3 Problem Choriocarcinoma C58 Active 1881 13518 Problem long term acute care registered nurse 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 Z79.01 Active 004482771 Problem History of venous thromboembolism V12.51 Active 209459507 Problem Cellulitis of unspecified part of limb L03.119 Active 998788654 Problem Gastroesophageal reflux disease without esophagitis K21.9 Active 844905806 Problem History of pulmonary embolism Z86.711 Active 638015331 Problem Pseudotumor cerebri G93.2 Active 18254606 Problem History of DVT (deep vein thrombosis) Z86.718 Active 494539533 ALLERGIES No Information ENCOUNTERS Encounter Location Date Diagnosis [place] [id number] [place] [address] Apr, jail (current) use of 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 Z79.01 [place] [id number] [place] [address] Apr, jail 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 Z 79.01 [place] [id number] [place] [address] Apr, Cellulitis of unspecified part of limb L 03.119 ; Allergic contact dermatitis due to adhesives L23.1 and Chronic pain syndrome G89.4 [place] [address] [address] Apr, [place] [address] [address] Apr, long term acute care registered nurse 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 Z 79.01 ; Cellulitis of unspecified part of limb L03.119 ; Chronic pain syndrome G89.4 and Anxiety F41.9 [place] [address] [address] Apr, [place] [address] [address] Apr, [place] [address] [address] Mar, [place] [address] [address] Mar, [address] [address] Mar, Sore throat J02.9 ; Gastroesophageal ref lux disease without esophagitis K21.9 ; Pseudotumor cerebri G93.2 ; Chronic pain syndrome G89.4 ; Choriocarcinoma C58 ; History of pulmonary embolism Z86.711 ; History of DVT (deep vein thrombosis) Z86.718 ; Anxiety F41.9 and Tachycardia R00.[address] [address] Feb, Anxiety 300.00 and Chronic pain 338.[address] [address] Feb, [address] [address] Feb, [place] [address] [address] Jan, jail 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 t herapy V58.61 and Dysuria 788.[address] [address] Jan, Dysuria 788.1 [place] [address] [address] Jan, Anxiety 300.00 and Chronic pain 338.29 [place] [address] [address] Jan, [place] [address] [address] Jan, [place] [address] [address] Jan, [place] [address] [address] Dec, Weakness 780.79 [place] [address] [address] Dec, long term acute care registered nurse 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 t herapy V58.61 [place] [address] [address] Dec, Palpitations 785.1 ; Tremor 781.0 ; Weak ness 780.79 ; long term acute care registered nurse 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 therapy V58.61 and Yeast vaginitis 112.1 [place] [address] [address] Dec, [place] [address] [address] Dec, Cervicalgia 723.1 ; Tachycardia 785.0 ; Pseudotumor cerebri 348.2 and History of venous thromboembolism V12.51 [place] [address] [address] Nov, [place] [address] [address] Nov, [place] [address] [address] Nov, Tachycardia 785.0 ; Pseudotumor cerebri 348.2 ; Anxiety 300.00 and History of venous thromboembolism V12.51 [place] [address] [address] Nov, [place] [address] [address] Nov, [facility] [address] [id number] [place] [address] 16 Nov, 2014 [facility] [address] [id number] [place] [address] Nov, [facility] [address] [id number] [place] [address] Nov, [facility] [id number] [place] [address] Nov, [facility] [address] [id number] [place] [address] Nov, [facility] [id number] [place] [address] October, [facility] [id number] [place] [address] October, [facility] [id number] [place] [address] October, Pain in thoracic spine 724.1 and Tachyca rdia 785.0 [facility] [id number] [place] [address] October, [facility] [id number] [place] [address] October, [facility] [id number] [place] [address] Sep, [facility] [id number] [place] [address] Sep, [facility] [address] [id number] [place] [address] Aug, [facility] [id number] [place] [address] Aug, [facility] [id number] [place] [address] Aug, [facility] [id number] [place] [address] Aug, [facility] [address] [id number] [place] [address] Aug, [facility] [address] [id number] [place] [address] Aug, 2014 [facility] [address] [id number] [place] [address] Aug, [facility] [address] [id number] [place] [address] Aug, [facility] [address] [id number] [place] [address] Aug, [facility] [address] [id number] [place] [address] Aug, [facility] [address] [id number] [place] [address] Aug, [facility] [address] [id number] [place] [address] Aug, [facility] [address] [id number] [place] [address] Jul, 2014 [facility] [address] [id number] [place] [address] Jul, 2014 [facility] [address] [id number] [place] [address] Jul, 2014 [facility] [address] [id number] [place] [address] Jul, 2014 [facility] [address] [id number] [place] [address] Jul, 2014 [facility] [address] [id number] [place] [address] Jul, 2014 [facility] [address] [id number] [place] [address] Jul, 2014 [facility] [address] [id number] [place] [address] Jul, 2014 [facility] [address] [id number] [place] [address] 20 Jul, 2014 [facility] [address] [id number] [place] [address] 20 Jul, 2014 [facility] [address] [id number] [place] [address] 19 Jul, 2014 [facility] [address] [id number] [place] [address] 19 Jul, 2014 [facility] [address] [id number] [place] [address] 17 Jul, 2014 [facility] [address] [id number] [place] [address] 17 Jul, 2014 [facility] [address] [id number] [place] [address] 16 Jul, 2014 [facility] [address] [id number] [place] [address] 16 Jul, 2014 [facility] [address] [id number] [place] [address] 16 Jul, 2014 [facility] [address] [id number] [place] [address] 16 Jul, 2014 [facility] [address] [id number] [place] [address] 13 Jul, 2014 [facility] [address] [id number] [place] [address] 13 Jul, 2014 [facility] [address] [id number] [place] [address] 13 Jul, 2014 [facility] [address] [id number] [place] [address] 13 Jul, 2014 [facility] [address] [id number] [place] [address] 12 Jul, 2014 [facility] [address] [id number] [place] [address] 12 Jul, 2014 [facility] [address] [id number] [place] [address] Jul, [facility] [address] [facility] [id number] [place] [address] Jul, [facility] [address] [id number] [place] [address] Jul, [facility] [address] [id number] [place] [address] Jul, [facility] [address] [id number] [place] [address] Jul, [facility] [address] [id number] [place] [address] Jul, [facility] [address] [id number] [place] [address] Jun, [facility] [address] [id number] [place] [address] Jun, [facility] [address] [id number] [place] [address] Jun, [facility] [address] [id number] [place] [address] Jun, [facility] [address] [id number] [place] [address] Jun, [facility] [address] [id number] [place] [address] Jun, [facility] [address] [id number] [place] [address] Jun, [facility] [address] [id number] [place] [address] Jun, [facility] [address] [id number] [place] [address] Jun, [facility] [address] [id number] [place] [address] Jun, [facility] [address] [id number] [place] [address] Jun, [facility] [address] [id number] [place] [address] Jun, [facility] [address] [id number] [place] [address] Jun, [facility] [address] [id number] [place] [address] Jun, [facility] [address] [id number] [place] [address] Jun, [facility] [address] [id number] [place] [address] Jun, [facility] [address] [id number] [place] [address] Jun, [facility] [address] [id number] [place] [address] Jun, [facility] [address] [id number] [place] [address] Jun, [facility] [address] [id number] [place] [address] Jun, [facility] [address] [id number] [place] [address] May, [facility] [address] [id number] [place] [address] May, [facility] [address] [id number] [place] [address] May, [facility] [address] [id number] [place] [address] 31 May, 2014 [facility] [address] [id number] [place] [address] May, [facility] [address] [id number] [place] [address] May, [facility] [address] [id number] [place] [address] May, [facility] [address] [id number] [place] [address] May, [facility] [address] [facility] [id number] [place] [address] May, [facility] [address] [facility] [id number] [place] [address] May, [facility] [address] [id number] [place] [address] May, [facility] [address] [id number] [place] [address] 18 May, 2014 [facility] [address] [facility] [id number] [place] [address] 18 May, 2014 [facility] [address] [id number] [place] [address] 17 May, 2014 [facility] [address] [id number] [place] [address] 16 May, 2014 [facility] [address] [id number] [place] [address] 16 May, 2014 [facility] [address] [id number] [place] [address] 15 May, 2014 [facility] [address] [id number] [place] [address] 15 May, 2014 [facility] [address] [id number] [place] [address] 12 May, 2014 [facility] [address] [id number] [place] [address] May, [facility] [address] [id number] [place] [address] May, [facility] [address] [id number] [place] [address] May, [facility] [address] [id number] [place] [address] May, [facility] [address] [id number] [place] [address] May, [facility] [address] [id number] [place] [address] May, [facility] [address] [id number] [place] [address] May, [facility] [address] [id number] [place] [address] May, [facility] [address] [id number] [place] [address] May, [facility] [address] [id number] [place] [address] May, [facility] [address] [id number] [place] [address] May, [facility] [address] [id number] [place] [address] May, [facility] [address] [id number] [place] [address] May, [facility] [address] [id number] [place] [address] May, [facility] [address] [id number] [place] [address] May, [facility] [address] [id number] [place] [address] Apr, [facility] [address] [id number] [place] [address] Apr, [facility] [address] [id number] [place] [address] Apr, [facility] [address] [id number] [place] [address] Apr, [facility] [address] [id number] [place] [address] Apr, [facility] [address] [id number] [place] [address] Apr, [facility] [address] [id number] [place] [address] Apr, [facility] [address] [id number] [place] [address] Apr, [facility] [address] [id number] [place] [address] Apr, [facility] [address] [id number] [place] [address] Apr, [facility] [address] [id number] [place] [address] Mar, [facility] [address] [id number] [place] [address] Mar, [facility] [address] [id number] [place] [address] Mar, [facility] [address] [id number] [place] [address] 31 Mar, 2014 [facility] [address] [id number] [place] [address] 30 Mar, 2014 [facility] [address] [id number] [place] [address] 30 Mar, 2014 [facility] [address] [id number] [place] [address] Mar, [facility] [address] [id number] [place] [address] 17 Mar, 2014 [facility] [address] [id number] [place] [address] 15 Mar, 2014 [facility] [address] [id number] [place] [address] 15 Mar, 2014 [facility] [address] [id number] [place] [address] 15 Mar, 2014 [facility] [address] [id number] [place] [address] 15 Mar, 2014 [facility] [address] [id number] [place] [address] 09 Mar, 2014 [facility] [address] [id number] [place] [address] Mar, 2013 [facility] [address] [id number] [place] [address] Mar, 2013 [facility] [address] [facility] [id number] [place] [address] Mar, 2013 [facility] [address] [id number] [place] [address] Mar, 2013 [facility] [address] [id number] [place] [address] Mar, 2013 [facility] [address] [facility] [id number] [place] [address] Mar, 2013 [facility] [address] [id number] [place] [address] Mar, 2013 [facility] [address] [id number] [place] [address] 05 Sep, 2013 [facility] [address] [id number] [place] [address] 05 Sep, 2013 [facility] [address] [id number] [place] [address] 04 Sep, 2013 [facility] [address] [id number] [place] [address] 04 Sep, 2013 [facility] [address] [id number] [place] [address] 03 Sep, 2013 [facility] [address] [id number] [place] [address] 03 Sep, 2013 [facility] [address] [id number] [place] [address] 02 Sep, 2013 [facility] [address] [id number] [place] [address] 02 Sep, 2013 [facility] [address] [id number] [place] [address] Sep, 2013 [facility] [address] [id number] [place] [address] 02 Sep, 2013 [facility] [address] [id number] [place] [address] Jan, [facility] [address] [id number] [place] [address] Jan, [facility] [address] [facility] [id number] [place] [address] Jan, [facility] [address] [id number] [place] [address] Jan, [facility] [address] [id number] [place] [address] Jan, [facility] [address] [id number] [place] [address] Jan, [facility] [address] [id number] [place] [address] Jan, [facility] [address] [id number] [place] [address] Jan, [facility] [address] [id number] [place] [address] Jan, [facility] [address] [id number] [place] [address] Jan, [facility] [address] [id number] [place] [address] Jan, [facility] [address] [id number] [place] [address] Jan, [facility] [address] [id number] [place] [address] Dec, [facility] [address] [id number] [place] [address] Dec, [facility] [address] [id number] [place] [address] Dec, [facility] [address] [id number] [place] [address] Dec, [facility] [address] [id number] [place] [address] Dec, [facility] [address] [facility] [id number] [place] [address] 14 Dec, 2013 [facility] [address] [facility] [id number] [place] [address] Dec, 2013 [facility] [address] [id number] [place] [address] 10 Dec, 2013 [facility] [address] [id number] [place] [address] Dec, 2013 [facility] [address] [facility] [id number] [place] [address] Dec, 2013 [facility] [address] [id number] [place] [address] Dec, 2013 [facility] [address] [id number] [place] [address] Dec, 2013 [facility] [address] [id number] [place] [address] Nov, [facility] [address] [id number] [place] [address] Nov, [facility] [address] [id number] [place] [address] Nov, [facility] [address] [id number] [place] [address] Nov, [facility] [address] [id number] [place] [address] 17 Nov, 2013 [facility] [address] [id number] [place] [address] Nov, [facility] [address] [id number] [place] [address] Nov, [facility] [address] [id number] [place] [address] Nov, [facility] [address] [id number] [place] [address] 05 Nov, 2013 [facility] [address] [id number] [place] [address] Nov, [facility] [address] [facility] [id number] [place] [address] Nov, [facility] [address] [facility] [id number] [place] [address] Nov, [facility] [address] [id number] [place] [address] Nov, [facility] [address] [id number] [place] [address] Nov, [facility] [address] [facility] [id number] [place] [address] October, [facility] [address] [id number] [place] [address] October, [facility] [address] [id number] [place] [address] October, [facility] [address] [id number] [place] [address] October, [facility] [address] [id number] [place] [address] October, [facility] [address] [id number] [place] [address] October, [facility] [address] [id number] [place] [address] October, [facility] [address] [id number] [place] [address] October, [facility] [address] [id number] [place] [address] October, [facility] [address] [id number] [place] [address] October, [facility] [place] [facility] [address] [id number] [place] [address] October, [facility] [place] [facility] [address] [id number] [place] [address] October, [facility] [place] [facility] [address] [id number] [place] [address] Sep, [facility] [place] [facility] [address] [facility] [id number] [place] [address] Sep, [facility] [place] [facility] [address] [id number] [place] [address] Sep, [facility] [place] [facility] [address] [id number] [place] [address] Sep, [facility] [place] [facility] [address] [id number] [place] [address] Sep, [facility] [place] [facility] [address] [id number] [place] [address] Sep, [facility] [place] [facility] [address] [id number] [place] [address] Aug, [facility] [place] [facility] [address] [id number] [place] [address] Aug, [facility] [place] [facility] [address] [id number] [place] [address] Aug, [facility] [place] [facility] [address] [id number] [place] [address] Aug, [facility] [place] [facility] [address] [id number] [place] [address] Aug, [facility] [place] [facility] [address] [id number] [place] [address] Aug, [facility] [place] [facility] [address] [id number] [place] [address] Jul, [facility] [place] [facility] [address] [id number] [place] [address] Jul, [facility] [place] [facility] [address] [id number] [place] [address] Jul, [facility] [place] [facility] [address] [id number] [place] [address] Jul, [facility] [place] [facility] [address] [id number] [place] [address] Jul, [facility] [place] [facility] [address] [id number] [place] [address] Jul, [facility] [place] [facility] [address] [id number] [place] [address] Jul, [facility] [place] [facility] [address] [id number] [place] [address] Jul, [facility] [place] [facility] [address] [id number] [place] [address] Jul, [facility] [place] [facility] [address] [id number] [place] [address] Jul, [facility] [place] [facility] [address] [id number] [place] [address] Jun, [facility] [place] [facility] [address] [id number] [place] [address] Jun, [facility] [place] [facility] [address] [id number] [place] [address] Jun, [facility] [place] [facility] [address] [id number] [place] [address] Jun, [facility] [place] [facility] [address] [id number] [place] [address] Jun, [facility] [place] [facility] [address] [id number] [place] [address] Jun, [facility] [place] [facility] [address] [id number] [place] [address] Jun, [facility] [place] [facility] [address] [id number] [place] [address] Jun, [facility] [place] [facility] [address] [id number] [place] [address] May, [facility] [place] [facility] [address] [id number] [place] [address] May, [facility] [place] [facility] [address] [id number] [place] [address] May, [facility] [place] [facility] [address] [id number] [place] [address] May, [facility] [place] [facility] [address] [id number] [place] [address] May, [facility] [place] [facility] [address] [id number] [place] [address] May, [facility] [place] [facility] [address] [id number] [place] [address] May, [facility] [place] [facility] [address] [id number] [place] [address] May, [facility] [place] [facility] [address] [id number] [place] [address] Apr, [facility] [place] [facility] [address] [id number] [place] [address] Apr, [facility] [place] [facility] [address] [id number] [place] [address] Apr, [facility] [place] [facility] [address] [id number] [place] [address] Apr, [facility] [place] [facility] [address] [id number] [place] [address] Apr, [facility] [place] [facility] [address] [id number] [place] [address] Apr, [facility] [place] [facility] [address] [id number] [place] [address] Mar, [facility] [place] [facility] [address] [id number] [place] [address] Mar, [facility] [place] [facility] [address] [id number] [place] [address] Mar, [facility] [place] [facility] [id number] [place] [address] Mar, [facility] [place] [facility] [address] [id number] [place] [address] Mar, [facility] [place] [facility] [address] [id number] [place] [address] Mar, [facility] [place] [facility] [address] [id number] [place] [address] Mar, [facility] [place] [facility] [address] [id number] [place] [address] 30 Feb, 2013 [facility] [place] [facility] [address] [id number] [place] [address] 30 Feb, 2013 [facility] [place] [facility] [address] [id number] [place] [address] Feb, [facility] [place] [facility] [address] [id number] [place] [address] Feb, [facility] [place] [facility] [address] [id number] [place] [address] Feb, [facility] [place] [facility] [address] [id number] [place] [address] Feb, [facility] [place] [facility] [address] [id number] [place] [address] Jan, [facility] [place] [facility] [address] [id number] [place] [address] Jan, [facility] [place] [facility] [address] [id number] [place] [address] Jan, [facility] [place] [facility] [address] [id number] [place] [address] Jan, [facility] [place] [facility] [address] [id number] [place] [address] Jan, [facility] [place] [facility] [address] [id number] [place] [address] Jan, [facility] [place] [facility] [address] [id number] [place] [address] Jan, [facility] [place] [facility] [address] [id number] [place] [address] Jan, [facility] [place] [facility] [address] [id number] [place] [address] Jan, [facility] [place] [facility] [address] [id number] [place] [address] Dec, 2012 [facility] [place] [facility] [address] [id number] [place] [address] Dec, 2012 [facility] [place] [facility] [address] [facility] [id number] [place] [address] Dec, 2012 [facility] [place] [facility] [address] [id number] [place] [address] 18 Dec, 2012 [facility] [place] [facility] [address] [facility] [id number] [place] [address] 17 Dec, 2012 [facility] [place] [facility] [address] [facility] [id number] [place] [address] 16 Dec, 2012 [facility] [place] [facility] [address] [facility] [id number] [place] [address] 15 Dec, 2012 [facility] [place] [facility] [address] [id number] [place] [address] 09 Dec, 2012 [facility] [place] [facility] [address] [id number] [place] [address] 08 Dec, 2012 [facility] [place] [facility] [address] [facility] [id number] [place] [address] 08 Dec, 2012 [facility] [place] [facility] [address] [id number] [place] [address] Dec, 2012 [facility] [place] [facility] [address] [id number] [place] [address] Dec, 2012 [facility] [place] [facility] [address] [id number] [place] [address] Dec, 2012 [facility] [place] [facility] [address] [facility] [id number] [place] [address] Nov, 2012 [facility] [place] [facility] [address] [id number] [place] [address] Nov, 2012 [facility] [place] [facility] [address] [facility] [id number] [place] [address] Nov, 2012 [facility] [place] [facility] [address] [id number] [place] [address] Nov, 2012 [facility] [place] [facility] [address] [id number] [place] [address] October, [facility] [place] [facility] [address] [id number] [place] [address] October, [facility] [place] [facility] [address] [id number] [place] [address] October, [facility] [place] [facility] [address] [id number] [place] [address] October, [facility] [place] [facility] [address] [id number] [place] [address] October, [facility] [place] [facility] [address] [id number] [place] [address] October, [facility] [place] [facility] [address] [id number] [place] [address] Sep, [facility] [place] [facility] [address] [id number] [place] [address] Sep, [facility] [place] [facility] [address] [id number] [place] [address] Sep, [facility] [place] [facility] [address] [id number] [place] [address] Sep, [facility] [place] [facility] [address] [id number] [place] [address] Sep, [facility] [place] [facility] [address] [id number] [place] [address] 16 Sep, 2012 [facility] [place] [facility] [address] [id number] [place] [address] Sep, [facility] [place] [facility] [address] [id number] [place] [address] Sep, [facility] [place] [facility] [address] [id number] [place] [address] Sep, [facility] [place] [facility] [address] [id number] [place] [address] Sep, [facility] [place] [facility] [address] [id number] [place] [address] Sep, [facility] [place] [facility] [address] [id number] [place] [address] Aug, [facility] [place] [facility] [address] [id number] [place] [address] 25 Aug, 2012 [facility] [place] [facility] [address] [id number] [place] [address] Aug, [facility] [place] [facility] [address] [id number] [place] [address] Aug, [facility] [place] [facility] [address] [id number] [place] [address] 19 Aug, 2012 [facility] [place] [facility] [address] [id number] [place] [address] 18 Aug, 2012 [facility] [place] [facility] [address] [id number] [place] [address] 17 Aug, 2012 [facility] [place] [facility] [address] [id number] [place] [address] 15 Aug, 2012 [facility] [place] [facility] [address] [id number] [place] [address] 15 Aug, 2012 [facility] [place] [facility] [address] [id number] [place] [address] Aug, [facility] [place] [facility] [address] [id number] [place] [address] 11 Aug, 2012 [facility] [place] [facility] [address] [id number] [place] [address] 07 Aug, 2012 [facility] [place] [facility] [address] [id number] [place] [address] 27 Jul, 2012 [facility] [place] [facility] [address] [id number] [place] [address] Jul, [facility] [place] [facility] [address] [id number] [place] [address] 26 Jul, 2012 [facility] [place] [facility] [address] [id number] [place] [address] Jul, [facility] [place] [facility] [address] [id number] [place] [address] Jul, [facility] [address] [id number] [place] [address] Jul, [facility] [place] [facility] [address] [id number] [place] [address] Jul, [facility] [place] [facility] [id number] [place] [address] Jul, [facility] [place] [facility] [id number] [place] [address] Jul, [facility] [place] [facility] [address] [id number] [place] [address] Jul, [facility] [place] [facility] [id number] [place] [address] May, [facility] [place] [address] [id number] [id number] May, [facility] [place] [facility] [id number] [place] [address] May, [facility] [place] [facility] [id number] [place] [address] May, [facility] [place] [facility] [id number] [place] [address] May, [facility] [id number] [place] [address] Apr, [facility] [place] [address] [id number] [id number] Apr, [facility] [place] [facility] [id number] [place] [address] Apr, [facility] [place] [facility] [id number] [place] [address] Mar, [facility] [place] [address] [id number] [id number] Mar, [facility] [place] [facility] [id number] [place] [address] Mar, [facility] [place] [address] [id number] [id number] Feb, [facility] [place] [facility] [address] [id number] [place] [address] Feb, [facility] [place] [facility] [address] [id number] [place] [address] Feb, [facility] [address] [id number] [id number] 10 Feb, 2012 [facility] [address] [id number] [id number] 07 Feb, 2012 [facility] [address] [id number] [id number] Jan, [facility] [place] [facility] [id number] [place] [address] Jan, [facility] [address] [id number] [id number] Jan, [facility] [place] [id number] [id number] Jan, [facility] [address] [id number] [id number] Jan, [facility] [place] [facility] [address] [id number] [place] [address] Jan, [facility] [place] [facility] [address] [id number] [place] [address] Jan, [facility] [place] [facility] [address] [id number] [place] [address] Aug, [facility] [address] [id number] [id number] Aug, [facility] [place] [facility] [address] [id number] [place] [address] Jul, [facility] [place] [facility] [id number] [place] [address] Jul, [facility] [place] [facility] [address] [id number] [place] [address] Jul, [facility] [address] [id number] [id number] Jul, [facility] [place] [facility] [address] [id number] [place] [address] Jul, [facility] [place] [address] [id number] [place] [id number] Jul, [facility] [place] [facility] [address] [id number] [place] [address] Jul, [facility] [place] [address] [id number] [place] [id number] Jul, [facility] [place] [address] [id number] [id number] Jul, [facility] [place] [address] [facility] [id number] Jul, [facility] [place] [facility] [id number] [place] [address] May, [facility] [place] [facility] [id number] [place] [address] May, [facility] [place] [facility] [id number] [place] [address] May, [facility] [place] [facility] [id number] [place] [address] Apr, [facility] [place] [facility] [id number] [place] [address] Jan, [facility] [place] [facility] [id number] [place] [address] Jan, [facility] [place] [facility] [id number] [place] [address] Dec, [facility] [place] [facility] [address] [id number] [place] [address] 15 Dec, 2009 [facility] [place] [facility] [id number] [place] [address] 16 May, 2009 [facility] [place] [facility] [id number] [place] [address] Mar, [facility] [place] [facility] [id number] [place] [address] Mar, [facility] [place] [facility] [address] [facility] [id number] [place] [address] Jan, IMMUNIZATIONS No Known Immunizations SOCIAL HISTORY Never Assessed REASON FOR VISIT PLAN OF CARE VITAL SIGNS Height 63 in 2013-11-03 Weight 194.1 lbs 2013-11-03 Temperature 99.2 degrees Fahrenheit 2013-11-03 Heart Rate 88 bpm 2013-11-03 Respiratory Rate 18 2013-11-03 Blood pressure systolic 120 mmHg 2013-11-03 Blood pressure diastolic 78 mmHg 2013-11-03 MEDICATIONS Unknown Medications RESULTS No Results PROCEDURES Procedure Date Ordered Result Body Site PROTHROMBIN TIME November 03, 2013 INSTRUCTIONS MEDICATIONS ADMINISTERED No Known Medications [...]
--- OUTSIDE RECORDS SUMMARY | 2020-01-28 12:33 | XMS REPORT ---
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 Active 247825835 Problem History of venous thromboembolism V12.51 Active 264947882 Problem Cellulitis of unspecified part of limb L03.119 Active 159303404 Problem Gastroesophageal reflux disease without esophagitis K21.9 Active 596224428 Problem History of pulmonary embolism Z86.711 Active 798660990 Problem Pseudotumor cerebri G93.2 Active 29610203 Problem History of DVT (deep vein thrombosis) Z86.718 Active [id number] ALLERGIES No Information ENCOUNTERS Encounter Location Date Diagnosis [place] [address] [address] Apr, 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 (current) use of 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 Z79.01 [place] [address] [address] Apr, half-way 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 Z 79.01 [place] [address] [address] Apr, Cellulitis of unspecified part of limb L 03.119 ; Allergic contact dermatitis due to adhesives L23.1 and Chronic pain syndrome G89.4 [place] [address] [address] Apr, [place] [address] [address] Apr, 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 Z 79.01 ; Cellulitis of unspecified part of limb L03.119 ; Chronic pain syndrome G89.4 and Anxiety F41.9 [place] [address] [address] Apr, [place] [address] [address] Apr, [place] [address] [address] Mar, [place] [address] [address] Mar, [address] [address] Mar, Sore throat J02.9 ; Gastroesophageal ref lux disease without esophagitis K21.9 ; Pseudotumor cerebri G93.2 ; Chronic pain syndrome G89.4 ; Choriocarcinoma C58 ; History of pulmonary embolism Z86.711 ; History of DVT (deep vein thrombosis) Z86.718 ; Anxiety F41.9 and Tachycardia R00.[address] [address] Feb, Anxiety 300.00 and Chronic pain 338.[address] [address] Feb, [place] [address] [address] Feb, [place] [address] [address] Jan, 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 t herapy V58.61 and Dysuria 788.[address] [address] Jan, Dysuria 788.[address] [address] Jan, Anxiety 300.00 and Chronic pain 338.29 [place] [address] [address] Jan, [place] [address] [address] Jan, [place] [address] [address] Jan, [place] [address] [address] Dec, Weakness 780.79 [place] [address] [address] Dec, 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 t herapy V58.61 [place] [address] [address] Dec, Palpitations 785.1 ; Tremor 781.0 ; Weak ness 780.79 ; 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 therapy V58.61 and Yeast vaginitis 112.1 [place] [address] [address] Dec, [place] [address] [address] Dec, Cervicalgia 723.1 ; Tachycardia 785.0 ; Pseudotumor cerebri 348.2 and History of venous thromboembolism V12.51 [place] [address] [address] Nov, [place] [address] [address] Nov, [place] [address] [address] Nov, Tachycardia 785.0 ; Pseudotumor cerebri 348.2 ; Anxiety 300.00 and History of venous thromboembolism V12.51 [place] [address] [address] Nov, [place] [address] [address] Nov, [facility] [address] [id number] [place] [address] 16 Nov, 2014 [facility] [address] [place] [id number] [place] [address] 12 Nov, 2014 [facility] [address] [id number] [place] [address] Nov, [facility] [address] [place] [id number] [place] [address] 08 Nov, 2014 [facility] [address] [id number] [place] [address] Nov, [facility] [address] [place] [id number] [place] [address] October, [facility] [address] [place] [id number] [place] [address] October, [facility] [address] [place] [id number] [place] [address] October, Pain in thoracic spine 724.1 and Tachyca rdia 785.0 [facility] [address] [place] [id number] [place] [address] October, [facility] [address] [place] [id number] [place] [address] October, [facility] [address] [place] [id number] [place] [address] 14 Sep, 2014 [facility] [address] [place] [id number] [place] [address] Sep, [facility] [address] [place] [id number] [place] [address] Aug, [facility] [address] [place] [id number] [place] [address] Aug, [facility] [address] [id number] [place] [address] Aug, [facility] [address] [place] [id number] [place] [address] Aug, [facility] [address] [id number] [place] [address] Aug, 2014 [facility] [address] [id number] [place] [address] Aug, 2014 [facility] [address] [id number] [place] [address] Aug, 2014 [facility] [address] [id number] [place] [address] Aug, 2014 [facility] [address] [id number] [place] [address] Aug, 2014 [facility] [address] [id number] [place] [address] Aug, 2014 [facility] [address] [id number] [place] [address] Aug, 2014 [facility] [address] [id number] [place] [address] Aug, 2014 [facility] [address] [id number] [place] [address] Jul, 2014 [facility] [address] [id number] [place] [address] Jul, 2014 [facility] [address] [id number] [place] [address] Jul, 2014 [facility] [address] [id number] [place] [address] Jul, 2014 [facility] [address] [id number] [place] [address] Jul, 2014 [facility] [address] [id number] [place] [address] Jul, 2014 [facility] [address] [id number] [place] [address] Jul, 2014 [facility] [address] [id number] [place] [address] Jul, 2014 [facility] [address] [id number] [place] [address] 20 Jul, 2014 [facility] [address] [id number] [place] [address] 20 Jul, 2014 [facility] [address] [id number] [place] [address] 19 Jul, 2014 [facility] [address] [id number] [place] [address] 19 Jul, 2014 [facility] [address] [id number] [place] [address] 17 Jul, 2014 [facility] [address] [id number] [place] [address] 17 Jul, 2014 [facility] [address] [id number] [place] [address] 16 Jul, 2014 [facility] [address] [id number] [place] [address] 16 Jul, 2014 [facility] [address] [id number] [place] [address] 16 Jul, 2014 [facility] [address] [id number] [place] [address] 16 Jul, 2014 [facility] [address] [id number] [place] [address] 13 Jul, 2014 [facility] [address] [id number] [place] [address] 13 Jul, 2014 [facility] [address] [id number] [place] [address] 13 Jul, 2014 [facility] [address] [id number] [place] [address] 13 Jul, 2014 [facility] [address] [id number] [place] [address] 12 Jul, 2014 [facility] [address] [id number] [place] [address] 12 Jul, 2014 [facility] [address] [id number] [place] [address] Jul, [facility] [address] [facility] [id number] [place] [address] Jul, [facility] [address] [id number] [place] [address] Jul, [facility] [address] [id number] [place] [address] Jul, [facility] [address] [id number] [place] [address] Jul, [facility] [address] [id number] [place] [address] Jul, [facility] [address] [id number] [place] [address] Jun, [facility] [address] [id number] [place] [address] Jun, [facility] [address] [id number] [place] [address] Jun, [facility] [address] [id number] [place] [address] Jun, [facility] [address] [id number] [place] [address] Jun, [facility] [address] [id number] [place] [address] Jun, [facility] [address] [id number] [place] [address] Jun, [facility] [address] [id number] [place] [address] Jun, [facility] [address] [id number] [place] [address] Jun, [facility] [address] [id number] [place] [address] Jun, [facility] [address] [id number] [place] [address] Jun, [facility] [address] [id number] [place] [address] Jun, [facility] [address] [id number] [place] [address] Jun, [facility] [address] [id number] [place] [address] Jun, [facility] [address] [id number] [place] [address] Jun, [facility] [address] [id number] [place] [address] Jun, [facility] [address] [id number] [place] [address] Jun, [facility] [address] [id number] [place] [address] Jun, [facility] [address] [id number] [place] [address] Jun, [facility] [address] [id number] [place] [address] Jun, [facility] [address] [id number] [place] [address] May, [facility] [address] [id number] [place] [address] May, [facility] [address] [id number] [place] [address] May, [facility] [address] [id number] [place] [address] May, [facility] [address] [id number] [place] [address] May, [facility] [address] [id number] [place] [address] May, [facility] [address] [id number] [place] [address] May, [facility] [address] [id number] [place] [address] May, [facility] [address] [facility] [id number] [place] [address] May, [facility] [address] [id number] [place] [address] May, [facility] [address] [id number] [place] [address] May, [facility] [address] [id number] [place] [address] May, [facility] [address] [id number] [place] [address] 18 May, 2014 [facility] [address] [id number] [place] [address] 17 May, 2014 [facility] [address] [id number] [place] [address] 16 May, 2014 [facility] [address] [id number] [place] [address] 16 May, 2014 [facility] [address] [id number] [place] [address] 15 May, 2014 [facility] [address] [id number] [place] [address] 15 May, 2014 [facility] [address] [id number] [place] [address] 12 May, 2014 [facility] [address] [id number] [place] [address] May, [facility] [address] [id number] [place] [address] May, [facility] [address] [id number] [place] [address] May, [facility] [address] [id number] [place] [address] May, [facility] [address] [id number] [place] [address] May, [facility] [address] [id number] [place] [address] May, [facility] [address] [id number] [place] [address] May, [facility] [address] [id number] [place] [address] May, [facility] [address] [id number] [place] [address] May, [facility] [address] [id number] [place] [address] May, [facility] [address] [id number] [place] [address] May, [facility] [address] [id number] [place] [address] May, [facility] [address] [id number] [place] [address] May, [facility] [address] [id number] [place] [address] May, [facility] [address] [id number] [place] [address] May, [facility] [address] [id number] [place] [address] Apr, [facility] [address] [id number] [place] [address] Apr, [facility] [address] [id number] [place] [address] Apr, [facility] [address] [id number] [place] [address] Apr, [facility] [address] [id number] [place] [address] Apr, [facility] [address] [id number] [place] [address] Apr, [facility] [address] [id number] [place] [address] Apr, [facility] [address] [id number] [place] [address] Apr, [facility] [address] [id number] [place] [address] Apr, [facility] [address] [id number] [place] [address] Apr, [facility] [address] [id number] [place] [address] Mar, [facility] [address] [id number] [place] [address] Mar, [facility] [address] [id number] [place] [address] Mar, [facility] [address] [id number] [place] [address] Mar, [facility] [address] [id number] [place] [address] Mar, [facility] [address] [id number] [place] [address] 30 Mar, 2014 [facility] [address] [id number] [place] [address] Mar, [facility] [address] [id number] [place] [address] 17 Mar, 2013 [facility] [address] [id number] [place] [address] 15 Mar, 2014 [facility] [address] [id number] [place] [address] 15 Mar, 2014 [facility] [address] [id number] [place] [address] 15 Mar, 2014 [facility] [address] [id number] [place] [address] 15 Mar, 2014 [facility] [address] [id number] [place] [address] 09 Mar, 2014 [facility] [address] [id number] [place] [address] Mar, 2013 [facility] [address] [id number] [place] [address] Mar, 2013 [facility] [address] [id number] [place] [address] Mar, 2013 [facility] [address] [id number] [place] [address] Mar, 2013 [facility] [address] [id number] [place] [address] Mar, 2013 [facility] [address] [id number] [place] [address] Mar, 2013 [facility] [address] [id number] [place] [address] Mar, 2013 [facility] [address] [id number] [place] [address] 05 Sep, 2013 [facility] [address] [id number] [place] [address] 05 Sep, 2013 [facility] [address] [id number] [place] [address] 04 Sep, 2013 [facility] [address] [id number] [place] [address] 04 Sep, 2013 [facility] [address] [id number] [place] [address] 03 Sep, 2013 [facility] [address] [id number] [place] [address] 03 Sep, 2013 [facility] [address] [id number] [place] [address] Sep, 2013 [facility] [address] [id number] [place] [address] Sep, 2013 [facility] [address] [id number] [place] [address] Sep, 2013 [facility] [address] [id number] [place] [address] Sep, 2013 [facility] [address] [id number] [place] [address] Jan, [facility] [address] [id number] [place] [address] Jan, [facility] [address] [facility] [id number] [place] [address] Jan, [facility] [address] [facility] [id number] [place] [address] Jan, [facility] [address] [facility] [id number] [place] [address] Jan, [facility] [address] [id number] [place] [address] Jan, [facility] [address] [facility] [id number] [place] [address] Jan, [facility] [address] [id number] [place] [address] Jan, [facility] [address] [id number] [place] [address] Jan, [facility] [address] [id number] [place] [address] Jan, [facility] [address] [facility] [id number] [place] [address] Jan, [facility] [address] [id number] [place] [address] Jan, [facility] [address] [id number] [place] [address] Dec, [facility] [address] [id number] [place] [address] Dec, [facility] [address] [id number] [place] [address] Dec, [facility] [address] [facility] [id number] [place] [address] Dec, [facility] [address] [id number] [place] [address] Dec, [facility] [address] [facility] [id number] [place] [address] 14 Dec, 2013 [facility] [address] [facility] [id number] [place] [address] Dec, 2013 [facility] [address] [facility] [id number] [place] [address] Dec, 2013 [facility] [address] [id number] [place] [address] Dec, 2013 [facility] [address] [facility] [id number] [place] [address] Dec, 2013 [facility] [address] [id number] [place] [address] Dec, 2013 [facility] [address] [id number] [place] [address] Dec, 2013 [facility] [address] [id number] [place] [address] Nov, 2013 [facility] [address] [id number] [place] [address] Nov, [facility] [address] [id number] [place] [address] Nov, [facility] [address] [id number] [place] [address] Nov, [facility] [address] [id number] [place] [address] Nov, [facility] [address] [id number] [place] [address] Nov, [facility] [address] [id number] [place] [address] Nov, [facility] [address] [id number] [place] [address] Nov, [facility] [address] [id number] [place] [address] Nov, [facility] [address] [id number] [place] [address] Nov, [facility] [address] [id number] [place] [address] Nov, [facility] [address] [id number] [place] [address] Nov, [facility] [address] [id number] [place] [address] Nov, [facility] [address] [id number] [place] [address] Nov, [facility] [address] [id number] [place] [address] October, [facility] [address] [id number] [place] [address] October, [facility] [address] [id number] [place] [address] October, [facility] [address] [id number] [place] [address] October, [facility] [address] [id number] [place] [address] October, [facility] [address] [id number] [place] [address] October, [facility] [address] [id number] [place] [address] October, [facility] [address] [id number] [place] [address] October, [facility] [address] [id number] [place] [address] October, [facility] [address] [id number] [place] [address] October, [facility] [address] [id number] [place] [address] October, [facility] [address] [id number] [place] [address] October, [facility] [address] [id number] [place] [address] Sep, [facility] [address] [id number] [place] [address] Sep, [facility] [address] [facility] [id number] [place] [address] Sep, [facility] [address] [id number] [place] [address] Sep, [facility] [address] [id number] [place] [address] Sep, [facility] [address] [facility] [id number] [place] [address] Sep, [facility] [address] [id number] [place] [address] Aug, [facility] [address] [id number] [place] [address] Aug, [facility] [place] [facility] [address] [id number] [place] [address] Aug, [facility] [place] [facility] [address] [facility] [id number] [place] [address] Aug, [facility] [place] [facility] [address] [id number] [place] [address] Aug, [facility] [place] [facility] [address] [id number] [place] [address] Aug, [facility] [place] [facility] [address] [id number] [place] [address] Jul, [facility] [place] [facility] [address] [facility] [id number] [place] [address] Jul, [facility] [place] [facility] [address] [id number] [place] [address] Jul, [facility] [place] [facility] [address] [id number] [place] [address] Jul, [facility] [place] [facility] [address] [id number] [place] [address] Jul, [facility] [place] [facility] [address] [facility] [id number] [place] [address] Jul, [facility] [place] [facility] [address] [id number] [place] [address] Jul, [facility] [place] [facility] [address] [id number] [place] [address] Jul, [facility] [place] [facility] [address] [id number] [place] [address] Jul, [facility] [place] [facility] [address] [id number] [place] [address] Jul, [facility] [place] [facility] [address] [id number] [place] [address] Jun, [facility] [place] [facility] [address] [id number] [place] [address] Jun, [facility] [place] [facility] [address] [id number] [place] [address] Jun, [facility] [place] [facility] [address] [id number] [place] [address] Jun, [facility] [place] [facility] [address] [id number] [place] [address] Jun, [facility] [place] [facility] [address] [id number] [place] [address] Jun, [facility] [place] [facility] [address] [id number] [place] [address] Jun, [facility] [place] [facility] [address] [id number] [place] [address] Jun, [facility] [place] [facility] [address] [id number] [place] [address] May, [facility] [place] [facility] [address] [id number] [place] [address] May, [facility] [place] [facility] [address] [id number] [place] [address] May, [facility] [place] [facility] [address] [id number] [place] [address] May, 2012 [facility] [place] [facility] [address] [id number] [place] [address] May, [facility] [place] [facility] [address] [id number] [place] [address] May, [facility] [place] [facility] [address] [id number] [place] [address] May, [facility] [place] [facility] [address] [id number] [place] [address] May, [facility] [place] [facility] [address] [id number] [place] [address] Apr, [facility] [place] [facility] [address] [id number] [place] [address] Apr, [facility] [place] [facility] [address] [id number] [place] [address] Apr, [facility] [place] [facility] [address] [id number] [place] [address] Apr, [facility] [place] [facility] [address] [id number] [place] [address] Apr, [facility] [place] [facility] [address] [id number] [place] [address] Apr, [facility] [place] [facility] [address] [id number] [place] [address] Mar, [facility] [place] [facility] [address] [id number] [place] [address] Mar, [facility] [place] [facility] [address] [id number] [place] [address] Mar, [facility] [place] [facility] [address] [id number] [place] [address] Mar, [facility] [place] [facility] [address] [id number] [place] [address] Mar, [facility] [place] [facility] [address] [id number] [place] [address] Mar, [facility] [place] [facility] [address] [id number] [place] [address] Mar, [facility] [place] [facility] [address] [id number] [place] [address] Feb, [facility] [place] [facility] [address] [id number] [place] [address] 30 Feb, 2012 [facility] [place] [facility] [address] [id number] [place] [address] Feb, [facility] [place] [facility] [address] [facility] [id number] [place] [address] Feb, 2012 [facility] [place] [facility] [address] [id number] [place] [address] Feb, [facility] [place] [facility] [address] [id number] [place] [address] Feb, [facility] [place] [facility] [address] [id number] [place] [address] Jan, [facility] [place] [facility] [address] [id number] [place] [address] Jan, [facility] [place] [facility] [address] [id number] [place] [address] Jan, [facility] [place] [facility] [address] [id number] [place] [address] Jan, [facility] [place] [facility] [address] [id number] [place] [address] Jan, [facility] [place] [facility] [address] [id number] [place] [address] Jan, [facility] [place] [facility] [address] [id number] [place] [address] Jan, [facility] [place] [facility] [address] [id number] [place] [address] Jan, [facility] [place] [facility] [address] [id number] [place] [address] Jan, [facility] [place] [facility] [address] [id number] [place] [address] 29 Dec, 2012 [facility] [place] [facility] [address] [id number] [place] [address] Dec, 2012 [facility] [place] [facility] [address] [facility] [id number] [place] [address] Dec, 2012 [facility] [place] [facility] [address] [id number] [place] [address] 18 Dec, 2012 [facility] [place] [facility] [address] [id number] [place] [address] 17 Dec, 2012 [facility] [place] [facility] [address] [facility] [id number] [place] [address] 16 Dec, 2012 [facility] [place] [facility] [address] [id number] [place] [address] 15 Dec, 2012 [facility] [place] [facility] [address] [id number] [place] [address] 09 Dec, 2012 [facility] [place] [facility] [address] [id number] [place] [address] Dec, 2012 [facility] [place] [facility] [address] [id number] [place] [address] Dec, 2012 [facility] [place] [facility] [address] [id number] [place] [address] Dec, [facility] [place] [facility] [address] [id number] [place] [address] Dec, 2012 [facility] [place] [facility] [address] [id number] [place] [address] Dec, 2012 [facility] [place] [facility] [address] [id number] [place] [address] Nov, [facility] [place] [facility] [address] [id number] [place] [address] Nov, 2012 [facility] [place] [facility] [address] [id number] [place] [address] Nov, [facility] [place] [facility] [address] [id number] [place] [address] Nov, [facility] [place] [facility] [address] [facility] [id number] [place] [address] October, [facility] [place] [facility] [address] [id number] [place] [address] October, [facility] [place] [facility] [address] [id number] [place] [address] October, [facility] [place] [facility] [address] [id number] [place] [address] October, [facility] [place] [facility] [address] [id number] [place] [address] October, [facility] [place] [facility] [address] [id number] [place] [address] October, [facility] [place] [facility] [address] [id number] [place] [address] Sep, [facility] [place] [facility] [address] [id number] [place] [address] Sep, [facility] [place] [facility] [address] [id number] [place] [address] Sep, [facility] [place] [facility] [address] [id number] [place] [address] Sep, [facility] [place] [facility] [address] [id number] [place] [address] Sep, [facility] [place] [facility] [address] [id number] [place] [address] 16 Sep, 2012 [facility] [place] [facility] [address] [id number] [place] [address] Sep, [facility] [place] [facility] [address] [id number] [place] [address] Sep, [facility] [place] [facility] [address] [id number] [place] [address] Sep, [facility] [place] [facility] [address] [id number] [place] [address] Sep, [facility] [place] [facility] [address] [id number] [place] [address] Sep, [facility] [facility] [address] [id number] [place] [address] Aug, [facility] [place] [facility] [address] [id number] [place] [address] 25 Aug, 2012 [facility] [place] [facility] [address] [id number] [place] [address] Aug, [facility] [place] [facility] [address] [id number] [place] [address] Aug, [facility] [place] [facility] [address] [id number] [place] [address] 19 Aug, 2012 [facility] [place] [facility] [address] [id number] [place] [address] 18 Aug, 2012 [facility] [place] [facility] [address] [id number] [place] [address] 17 Aug, 2012 [facility] [place] [facility] [address] [id number] [place] [address] 15 Aug, 2012 [facility] [place] [facility] [address] [id number] [place] [address] 15 Aug, 2012 [facility] [place] [facility] [address] [id number] [place] [address] Aug, [facility] [place] [facility] [address] [id number] [place] [address] Aug, [facility] [place] [facility] [address] [id number] [place] [address] 07 Aug, 2012 [facility] [place] [facility] [address] [id number] [place] [address] 27 Jul, 2012 [facility] [place] [facility] [address] [id number] [place] [address] Jul, [facility] [place] [facility] [address] [id number] [place] [address] 26 Jul, 2012 [facility] [place] [facility] [address] [id number] [place] [address] 22 Jul, 2012 [facility] [place] [facility] [address] [id number] [place] [address] Jul, 2012 [facility] [place] [facility] [address] [id number] [place] [address] Jul, 2012 [facility] [place] [facility] [address] [id number] [place] [address] Jul, 2012 [facility] [place] [facility] [address] [id number] [place] [address] Jul, [facility] [place] [facility] [address] [id number] [place] [address] Jul, [facility] [place] [facility] [address] [id number] [place] [address] Jul, [facility] [place] [facility] [address] [id number] [place] [address] May, [facility] [address] [id number] [address] May, [facility] [place] [facility] [id number] [place] [address] May, [facility] [place] [facility] [address] [id number] [place] [address] May, [facility] [place] [facility] [id number] [place] [address] May, [facility] [place] [facility] [id number] [place] [address] Apr, [facility] [place] [address] [id number] [id number] Apr, [facility] [place] [facility] [id number] [place] [address] Apr, [facility] [place] [facility] [id number] [place] [address] Mar, [facility] [id number] [id number] Mar, [facility] [place] [facility] [id number] [place] [address] Mar, [facility] [place] [id number] [id number] 13 Feb, 2012 [facility] [place] [facility] [address] [id number] [place] [address] Feb, [facility] [place] [facility] [address] [id number] [place] [address] Feb, [facility] [address] [facility] [id number] 10 Feb, 2012 [facility] [address] [facility] [id number] 07 Feb, 2012 [facility] [address] [facility] [id number] Jan, [facility] [place] [facility] [id number] [place] [address] Jan, [facility] [address] [facility]757[facility] [id number] Jan, [facility] [address] [id number] [id number] Jan, [facility] [address] [id number] [address] Jan, [facility] [place] [facility] [address] [id number] [place] [address] Jan, [facility] [place] [facility] [address] [id number] [place] [address] Jan, [facility] [place] [facility] [id number] [place] [address] Aug, [facility] [address] [facility] [id number] Aug, [facility] [place] [facility] [address] [id number] [place] [address] Jul, [facility] [place] [facility] [id number] [place] [address] Jul, [facility] [place] [facility] [id number] [place] [address] Jul, [facility] [address] [id number] [id number] Jul, [facility] [place] [facility] [address] [id number] [place] [address] Jul, [facility] [address] [facility]07[address] [id number] Jul, [facility] [place] [facility] [id number] [place] [address] Jul, [facility] [place] [address] [facility] [id number] Jul, [facility] [place] [address] [facility] [id number] Jul, [facility] [place] [address] [id number] [id number] Jul, [facility] [place] [facility] [id number] [place] [address] May, [facility] [place] [facility] [id number] [place] [address] May, [facility] [place] [facility] [id number] [place] [address] May, [facility] [place] [facility] [id number] [place] [address] Apr, [facility] [place] [facility] [id number] [place] [address] Jan, [facility] [place] [facility] [id number] [place] [address] Jan, [facility] [place] [facility] [id number] [place] [address] Dec, [facility] [place] [facility] [address] [id number] [place] [address] Dec, [facility] [place] [facility] [id number] [place] [address] 16 May, 2009 [facility] [place] [facility] [id number] [place] [address] Mar, [facility] [place] [facility] [address] [id number] [place] [address] Mar, [facility] [place] [facility] [address] [facility] [id number] [place] [address] Jan, IMMUNIZATIONS No Known Immunizations SOCIAL HISTORY [...]
--- OUTSIDE RECORDS SUMMARY | 2020-01-28 12:34 | XMS REPORT ---
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 080606315 Problem History of venous thromboembolism V12.51 Active 165887323 Problem Cellulitis of unspecified part of limb L03.119 Active 867845420 Problem Gastroesophageal reflux disease without esophagitis K21.9 Active 622955727 Problem History of pulmonary embolism Z86.711 Active 626402826 Problem Pseudotumor cerebri G93.2 Active 34975272 Problem History of DVT (deep vein thrombosis) Z86.718 Active 800655545 ALLERGIES No Information ENCOUNTERS Encounter Location Date Diagnosis [place] [address] [address] Apr, 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 (current) use of 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 Z79.01 [place] [address] [address] Apr, [facility] 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 Z 79.01 [place] [address] [address] Apr, Cellulitis of unspecified part of limb L 03.119 ; Allergic contact dermatitis due to adhesives L23.1 and Chronic pain syndrome G89.4 [place] [address] [address] Apr, [place] [address] [address] Apr, 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 ; Cellulitis of unspecified part of limb L03.119 ; Chronic pain syndrome G89.4 and Anxiety F41.9 [place] [address] [address] Apr, [place] [address] [address] Apr, [place] [address] [address] Mar, [place] [address] [address] Mar, [address] [address] Mar, Sore throat J02.9 ; Gastroesophageal ref lux disease without esophagitis K21.9 ; Pseudotumor cerebri G93.2 ; Chronic pain syndrome G89.4 ; Choriocarcinoma C58 ; History of pulmonary embolism Z86.711 ; History of DVT (deep vein thrombosis) Z86.718 ; Anxiety F41.9 and Tachycardia R00.[address] [address] Feb, Anxiety 300.00 and Chronic pain 338.[address] [address] Feb, [place] [address] [address] Feb, [place] [address] [address] Jan, 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 t herapy V58.61 and Dysuria 788.[address] [address] Jan, Dysuria 788.[address] [address] Jan, Anxiety 300.00 and Chronic pain 338.29 [place] [address] [address] Jan, [place] [address] [address] Jan, [place] [address] [address] Jan, [place] [address] [address] Dec, Weakness 780.79 [place] [address] [address] Dec, 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 t herapy V58.61 [place] [address] [address] Dec, Palpitations 785.1 ; Tremor 781.0 ; Weak ness 780.79 ; 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 therapy V58.61 and Yeast vaginitis 112.1 [place] [address] [address] Dec, [place] [address] [address] Dec, Cervicalgia 723.1 ; Tachycardia 785.0 ; Pseudotumor cerebri 348.2 and History of venous thromboembolism V12.51 [place] [address] [address] Nov, [place] [address] [address] Nov, [place] [address] [address] Nov, Tachycardia 785.0 ; Pseudotumor cerebri 348.2 ; Anxiety 300.00 and History of venous thromboembolism V12.51 [place] [address] [address] Nov, [place] [address] [address] Nov, [facility] [address] [id number] [place] [address] 16 Nov, 2014 [facility] [address] [place] [id number] [place] [address] 12 Nov, 2014 [facility] [address] [id number] [place] [address] Nov, [facility] [address] [place] [id number] [place] [address] 08 Nov, 2014 [facility] [address] [id number] [place] [address] Nov, [facility] [address] [place] [id number] [place] [address] October, [facility] [address] [place] [id number] [place] [address] October, [facility] [address] [place] [address] [id number] [place] [address] October, Pain in thoracic spine 724.1 and Tachyca rdia 785.0 [facility] [address] [place] [id number] [place] [address] October, [facility] [address] [place] [id number] [place] [address] October, [facility] [address] [place] [id number] [place] [address] 14 Sep, 2014 [facility] [address] [place] [id number] [place] [address] Sep, [facility] [address] [place] [id number] [place] [address] Aug, [facility] [address] [place] [address] [id number] [place] [address] Aug, [facility] [address] [id number] [place] [address] Aug, [facility] [address] [place] [address] [id number] [place] [address] Aug, [facility] [address] [id number] [place] [address] Aug, 2014 [facility] [address] [id number] [place] [address] Aug, 2014 [facility] [address] [id number] [place] [address] Aug, 2014 [facility] [address] [id number] [place] [address] Aug, 2014 [facility] [address] [id number] [place] [address] Aug, 2014 [facility] [address] [id number] [place] [address] Aug, 2014 [facility] [address] [id number] [place] [address] Aug, 2014 [facility] [address] [id number] [place] [address] Aug, 2014 [facility] [address] [id number] [place] [address] Jul, 2014 [facility] [address] [id number] [place] [address] Jul, 2014 [facility] [address] [id number] [place] [address] Jul, 2014 [facility] [address] [id number] [place] [address] Jul, 2014 [facility] [address] [id number] [place] [address] Jul, 2014 [facility] [address] [id number] [place] [address] Jul, 2014 [facility] [address] [id number] [place] [address] Jul, 2014 [facility] [address] [id number] [place] [address] Jul, 2014 [facility] [address] [id number] [place] [address] 20 Jul, 2014 [facility] [address] [id number] [place] [address] 20 Jul, 2014 [facility] [address] [id number] [place] [address] 19 Jul, 2014 [facility] [address] [id number] [place] [address] 19 Jul, 2014 [facility] [address] [id number] [place] [address] 17 Jul, 2014 [facility] [address] [id number] [place] [address] 17 Jul, 2014 [facility] [address] [id number] [place] [address] 16 Jul, 2014 [facility] [address] [id number] [place] [address] 16 Jul, 2014 [facility] [address] [id number] [place] [address] 16 Jul, 2014 [facility] [address] [id number] [place] [address] 16 Jul, 2014 [facility] [address] [id number] [place] [address] 13 Jul, 2014 [facility] [address] [id number] [place] [address] 13 Jul, 2014 [facility] [address] [id number] [place] [address] 13 Jul, 2014 [facility] [address] [id number] [place] [address] 13 Jul, 2014 [facility] [address] [id number] [place] [address] 12 Jul, 2014 [facility] [address] [id number] [place] [address] 12 Jul, 2014 [facility] [address] [id number] [place] [address] Jul, [facility] [address] [facility] [id number] [place] [address] Jul, [facility] [address] [id number] [place] [address] Jul, [facility] [address] [id number] [place] [address] Jul, [facility] [address] [id number] [place] [address] Jul, [facility] [address] [id number] [place] [address] Jul, [facility] [address] [id number] [place] [address] Jun, [facility] [address] [id number] [place] [address] Jun, [facility] [address] [id number] [place] [address] Jun, [facility] [address] [id number] [place] [address] Jun, [facility] [address] [id number] [place] [address] Jun, [facility] [address] [id number] [place] [address] Jun, [facility] [address] [id number] [place] [address] Jun, [facility] [address] [id number] [place] [address] Jun, [facility] [address] [id number] [place] [address] Jun, [facility] [address] [id number] [place] [address] Jun, [facility] [address] [id number] [place] [address] Jun, [facility] [address] [id number] [place] [address] Jun, [facility] [address] [id number] [place] [address] Jun, [facility] [address] [id number] [place] [address] Jun, [facility] [address] [id number] [place] [address] Jun, [facility] [address] [id number] [place] [address] Jun, [facility] [address] [id number] [place] [address] Jun, [facility] [address] [id number] [place] [address] Jun, [facility] [address] [id number] [place] [address] Jun, [facility] [address] [id number] [place] [address] Jun, [facility] [address] [id number] [place] [address] May, [facility] [address] [id number] [place] [address] May, [facility] [address] [id number] [place] [address] May, [facility] [address] [id number] [place] [address] May, [facility] [address] [id number] [place] [address] May, [facility] [address] [id number] [place] [address] May, [facility] [address] [id number] [place] [address] May, [facility] [address] [id number] [place] [address] May, [facility] [address] [facility] [id number] [place] [address] May, [facility] [address] [id number] [place] [address] May, [facility] [address] [id number] [place] [address] May, [facility] [address] [id number] [place] [address] May, [facility] [address] [id number] [place] [address] 18 May, 2014 [facility] [address] [id number] [place] [address] 17 May, 2014 [facility] [address] [id number] [place] [address] 16 May, 2014 [facility] [address] [id number] [place] [address] 16 May, 2014 [facility] [address] [id number] [place] [address] 15 May, 2014 [facility] [address] [id number] [place] [address] 15 May, 2014 [facility] [address] [id number] [place] [address] 12 May, 2014 [facility] [address] [id number] [place] [address] May, [facility] [address] [id number] [place] [address] May, [facility] [address] [id number] [place] [address] May, [facility] [address] [id number] [place] [address] May, [facility] [address] [id number] [place] [address] May, [facility] [address] [id number] [place] [address] May, [facility] [address] [id number] [place] [address] May, [facility] [address] [id number] [place] [address] May, [facility] [address] [id number] [place] [address] May, [facility] [address] [id number] [place] [address] May, [facility] [address] [id number] [place] [address] May, [facility] [address] [id number] [place] [address] May, [facility] [address] [id number] [place] [address] May, [facility] [address] [id number] [place] [address] May, [facility] [address] [id number] [place] [address] May, [facility] [address] [id number] [place] [address] Apr, [facility] [address] [id number] [place] [address] Apr, [facility] [address] [id number] [place] [address] Apr, [facility] [address] [id number] [place] [address] Apr, [facility] [address] [id number] [place] [address] Apr, [facility] [address] [id number] [place] [address] Apr, [facility] [address] [id number] [place] [address] Apr, [facility] [address] [id number] [place] [address] Apr, [facility] [address] [id number] [place] [address] Apr, [facility] [address] [id number] [place] [address] Apr, [facility] [address] [id number] [place] [address] Mar, [facility] [address] [id number] [place] [address] Mar, [facility] [address] [id number] [place] [address] Mar, [facility] [address] [id number] [place] [address] Mar, [facility] [address] [id number] [place] [address] Mar, [facility] [address] [id number] [place] [address] 30 Mar, 2014 [facility] [address] [id number] [place] [address] Mar, [facility] [address] [id number] [place] [address] 17 Mar, 2013 [facility] [address] [id number] [place] [address] 15 Mar, 2014 [facility] [address] [id number] [place] [address] 15 Mar, 2014 [facility] [address] [id number] [place] [address] 15 Mar, 2014 [facility] [address] [id number] [place] [address] 15 Mar, 2014 [facility] [address] [id number] [place] [address] 09 Mar, 2014 [facility] [address] [id number] [place] [address] Mar, 2013 [facility] [address] [id number] [place] [address] Mar, 2013 [facility] [address] [id number] [place] [address] Mar, 2013 [facility] [address] [id number] [place] [address] Mar, 2013 [facility] [address] [id number] [place] [address] Mar, 2013 [facility] [address] [id number] [place] [address] Mar, 2013 [facility] [address] [id number] [place] [address] Mar, 2013 [facility] [address] [id number] [place] [address] 05 Sep, 2013 [facility] [address] [id number] [place] [address] 05 Sep, 2013 [facility] [address] [id number] [place] [address] 04 Sep, 2013 [facility] [address] [id number] [place] [address] 04 Sep, 2013 [facility] [address] [id number] [place] [address] 03 Sep, 2013 [facility] [address] [id number] [place] [address] 03 Sep, 2013 [facility] [address] [id number] [place] [address] Sep, 2013 [facility] [address] [id number] [place] [address] Sep, 2013 [facility] [address] [id number] [place] [address] Sep, 2013 [facility] [address] [id number] [place] [address] Sep, 2013 [facility] [address] [id number] [facility] [place] [address] Jan, [facility] [address] [id number] [facility] [place] [address] Jan, [facility] [address] [facility] [id number] [facility] [place] [address] Jan, [facility] [address] [facility] [id number] [place] [address] Jan, [facility] [address] [facility] [id number] [facility] [place] [address] Jan, [facility] [address] [id number] [facility] [place] [address] Jan, [facility] [address] [facility] [id number] [place] [address] Jan, [facility] [address] [id number] [place] [address] Jan, [facility] [address] [id number] [place] [address] Jan, [facility] [address] [id number] [place] [address] Jan, [facility] [address] [facility] [id number] [place] [address] Jan, [facility] [address] [id number] [place] [address] Jan, [facility] [address] [id number] [place] [address] Dec, [facility] [address] [id number] [place] [address] Dec, [facility] [address] [id number] [place] [address] Dec, [facility] [address] [facility] [id number] [place] [address] Dec, [facility] [address] [id number] [place] [address] Dec, [facility] [address] [facility] [id number] [place] [address] 14 Dec, 2013 [facility] [address] [facility] [id number] [place] [address] Dec, 2013 [facility] [address] [facility] [id number] [place] [address] Dec, 2013 [facility] [address] [id number] [place] [address] Dec, 2013 [facility] [address] [facility] [id number] [place] [address] Dec, 2013 [facility] [address] [id number] [place] [address] Dec, 2013 [facility] [address] [id number] [place] [address] Dec, 2013 [facility] [address] [id number] [place] [address] Nov, 2013 [facility] [address] [id number] [place] [address] Nov, [facility] [address] [id number] [place] [address] Nov, [facility] [address] [id number] [place] [address] Nov, [facility] [address] [id number] [place] [address] Nov, [facility] [address] [id number] [place] [address] Nov, [facility] [address] [id number] [place] [address] Nov, [facility] [address] [id number] [place] [address] Nov, [facility] [address] [id number] [place] [address] Nov, [facility] [address] [id number] [place] [address] Nov, [facility] [address] [id number] [place] [address] Nov, [facility] [address] [id number] [place] [address] Nov, [facility] [address] [id number] [place] [address] Nov, [facility] [address] [id number] [place] [address] Nov, [facility] [address] [id number] [place] [address] October, [facility] [address] [id number] [place] [address] October, [facility] [address] [id number] [place] [address] October, [facility] [address] [id number] [place] [address] October, [facility] [address] [id number] [place] [address] October, [facility] [address] [id number] [place] [address] October, [facility] [address] [id number] [place] [address] October, [facility] [address] [id number] [place] [address] October, [facility] [address] [id number] [place] [address] October, [facility] [address] [id number] [place] [address] October, [facility] [address] [id number] [place] [address] October, [facility] [address] [id number] [place] [address] October, [facility] [address] [id number] [facility] [place] [address] Sep, [facility] [address] [id number] [facility] [place] [address] Sep, [facility] [address] [facility] [id number] [facility] [place] [address] Sep, [facility] [address] [id number] [place] [address] Sep, [facility] [address] [id number] [facility] [place] [address] Sep, [facility] [address] [facility] [id number] [facility] [place] [address] Sep, [facility] [address] [id number] [place] [address] Aug, [facility] [address] [id number] [place] [address] Aug, [facility] [address] [id number] [place] [address] Aug, [facility] [address] [facility] [id number] [place] [address] Aug, [facility] [address] [id number] [place] [address] Aug, [facility] [address] [id number] [place] [address] Aug, [facility] [address] [id number] [place] [address] Jul, [facility] [address] [facility] [id number] [place] [address] Jul, [facility] [address] [id number] [place] [address] Jul, [facility] [facility] [address] [id number] [place] [address] Jul, [facility] [address] [id number] [place] [address] Jul, [facility] [address] [facility] [id number] [facility] [place] [address] Jul, [facility] [address] [id number] [facility] [place] [address] Jul, [facility] [address] [id number] [place] [address] Jul, [facility] [address] [id number] [place] [address] Jul, [facility] [address] [id number] [place] [address] Jul, [facility] [address] [id number] [place] [address] Jun, [facility] [address] [id number] [place] [address] Jun, [facility] [address] [id number] [place] [address] Jun, [facility] [address] [id number] [place] [address] Jun, [facility] [address] [id number] [place] [address] Jun, [facility] [address] [id number] [place] [address] Jun, [facility] [address] [id number] [place] [address] Jun, [facility] [address] [id number] [place] [address] Jun, [facility] [address] [id number] [place] [address] May, [facility] [address] [id number] [place] [address] May, [facility] [address] [id number] [place] [address] May, [facility] [address] [id number] [place] [address] May, 2012 [facility] [address] [id number] [place] [address] May, [facility] [address] [id number] [place] [address] May, [facility] [address] [id number] [place] [address] May, [facility] [address] [id number] [place] [address] May, [facility] [address] [id number] [place] [address] Apr, [facility] [address] [id number] [place] [address] Apr, [facility] [address] [id number] [place] [address] Apr, [facility] [address] [id number] [place] [address] Apr, [facility] [address] [id number] [place] [address] Apr, [facility] [address] [id number] [place] [address] Apr, [facility] [address] [id number] [place] [address] Mar, [facility] [address] [id number] [place] [address] Mar, [facility] [address] [id number] [place] [address] Mar, [facility] [address] [id number] [place] [address] Mar, [facility] [address] [id number] [place] [address] Mar, [facility] [address] [id number] [place] [address] Mar, [facility] [address] [id number] [place] [address] Mar, [facility] [address] [id number] [place] [address] Feb, [facility] [address] [id number] [place] [address] 30 Feb, 2012 [facility] [address] [id number] [place] [address] Feb, [facility] [address] [facility] [id number] [place] [address] Feb, 2012 [facility] [address] [id number] [place] [address] Feb, [facility] [address] [id number] [place] [address] Feb, [facility] [address] [id number] [place] [address] Jan, [facility] [address] [id number] [place] [address] Jan, [facility] [address] [id number] [place] [address] Jan, [facility] [address] [id number] [place] [address] Jan, [facility] [address] [id number] [place] [address] Jan, [facility] [address] [id number] [place] [address] Jan, [facility] [address] [id number] [place] [address] Jan, [facility] [address] [id number] [place] [address] Jan, [facility] [address] [id number] [place] [address] Jan, [facility] [address] [id number] [place] [address] 29 Dec, 2012 [facility] [address] [id number] [facility] [place] [address] Dec, 2012 [facility] [address] [facility] [id number] [facility] [place] [address] Dec, 2012 [facility] [address] [id number] [facility] [place] [address] 18 Dec, 2012 [facility] [address] [id number] [place] [address] 17 Dec, 2012 [facility] [address] [facility] [id number] [facility] [place] [address] 16 Dec, 2012 [facility] [address] [id number] [facility] [place] [address] 15 Dec, 2012 [facility] [address] [id number] [facility] [place] [address] 09 Dec, 2012 [facility] [address] [id number] [facility] [place] [address] Dec, 2012 [facility] [address] [id number] [facility] [place] [address] Dec, 2012 [facility] [address] [id number] [facility] [place] [address] Dec, [facility] [address] [id number] [place] [address] Dec, 2012 [facility] [address] [id number] [place] [address] Dec, 2012 [facility] [address] [id number] [facility] [place] [address] Nov, [facility] [address] [id number] [place] [address] Nov, 2012 [facility] [address] [id number] [place] [address] Nov, [facility] [address] [id number] [place] [address] Nov, [facility] [address] [facility] [id number] [facility] [place] [address] October, [facility] [address] [id number] [place] [address] October, [facility] [address] [id number] [place] [address] October, [facility] [address] [id number] [place] [address] October, [facility] [address] [id number] [facility] [place] [address] October, [facility] [address] [id number] [facility] [place] [address] October, [facility] [address] [id number] [place] [address] Sep, [facility] [address] [id number] [place] [address] Sep, [facility] [address] [id number] [place] [address] Sep, [facility] [address] [id number] [place] [address] Sep, [facility] [address] [id number] [place] [address] Sep, [facility] [address] [id number] [place] [address] 16 Sep, 2012 [facility] [address] [id number] [place] [address] Sep, [facility] [address] [id number] [place] [address] Sep, [facility] [address] [id number] [place] [address] Sep, [facility] [address] [id number] [place] [address] Sep, [facility] [address] [id number] [place] [address] Sep, [facility] [address] [id number] [place] [address] Aug, [facility] [address] [id number] [place] [address] 25 Aug, 2012 [facility] [address] [id number] [place] [address] Aug, [facility] [address] [id number] [place] [address] Aug, [facility] [address] [id number] [place] [address] 19 Aug, 2012 [facility] [address] [id number] [place] [address] 18 Aug, 2012 [facility] [address] [id number] [place] [address] 17 Aug, 2012 [facility] [address] [id number] [place] [address] 15 Aug, 2012 [facility] [address] [id number] [place] [address] 15 Aug, 2012 [facility] [address] [id number] [place] [address] Aug, [facility] [address] [id number] [place] [address] Aug, [facility] [address] [id number] [place] [address] 07 Aug, 2012 [facility] [address] [id number] [place] [address] 27 Jul, 2012 [facility] [address] [id number] [place] [address] Jul, [facility] [address] [id number] [place] [address] 26 Jul, 2012 [facility] [address] [id number] [place] [address] 22 Jul, 2012 [facility] [address] [id number] [place] [address] Jul, 2012 [facility] [address] [id number] [place] [address] Jul, 2012 [facility] [address] [id number] [place] [address] Jul, 2012 [facility] [address] [id number] [place] [address] Jul, [facility] [address] [id number] [place] [address] Jul, [facility] [address] [id number] [place] [address] Jul, [facility] [address] [id number] [place] [address] May, [facility] [id number] [id number] May, [facility] [id number] [place] [address] May, [facility] [address] [id number] [place] [address] May, [facility] [id number] [place] [address] May, [facility] [id number] [place] [address] Apr, [facility] [place] [address] [id number] [address] Apr, [facility] [id number] [place] [address] Apr, [facility] [id number] [place] [address] Mar, [facility] [id number] [id number] Mar, [facility] [id number] [place] [address] Mar, [facility] [place] [id number] [id number] 13 Feb, 2012 [facility] [address] [id number] [place] [address] Feb, [facility] [address] [id number] [place] [address] Feb, [facility] [address] [id number] [id number] 10 Feb, 2012 [facility] [address] [facility] [id number] 07 Feb, 2012 [facility] [address] [id number] [id number] Jan, [facility] [id number] [place] [address] Jan, [facility] [address] [facility]757[facility] [id number] Jan, [facility] [address] [id number] [id number] Jan, [facility] [address] [id number] [id number] Jan, [facility] [address] [id number] [place] [address] Jan, [facility] [address] [id number] [place] [address] Jan, [facility] [id number] [place] [address] Aug, [facility] [address] [id number] [id number] Aug, [facility] [address] [id number] [place] [address] Jul, [facility] [id number] [place] [address] Jul, [facility] [id number] [place] [address] Jul, [facility] [address] [id number] [id number] Jul, [facility] [address] [id number] [place] [address] Jul, [facility] [address] [id number] [id number] Jul, [facility] [id number] [place] [address] Jul, [facility] [address] [facility] [id number] Jul, [facility] [address] [id number] [id number] Jul, [facility] [place] [address] [facility] [id number] Jul, [facility] [id number] [place] [address] May, [facility] [id number] [place] [address] May, [facility] [id number] [place] [address] May, [facility] [id number] [place] [address] Apr, [facility] [id number] [place] [address] Jan, [facility] [id number] [place] [address] Jan, [facility] [id number] [place] [address] Dec, [facility] [address] [id number] [place] [address] Dec, [facility] [id number] [place] [address] 16 May, 2009 [facility] [id number] [place] [address] Mar, [facility] [id number] [place] [address] Mar, [facility] [address] [facility] [id number] [place] [address] Jan, IMMUNIZATIONS No Known Immunizations SOCIAL HISTORY [...]
--- OUTSIDE RECORDS SUMMARY | 2020-01-28 12:34 | XMS REPORT ---
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 Active 926577196 Problem History of venous thromboembolism V12.51 Active 960903616 Problem Cellulitis of unspecified part of limb L03.119 Active 640830094 Problem Gastroesophageal reflux disease without esophagitis K21.9 Active 519145029 Problem History of pulmonary embolism Z86.711 Active 279394480 Problem Pseudotumor cerebri G93.2 Active 89382789 Problem History of DVT (deep vein thrombosis) Z86.718 Active [id number] ALLERGIES No Information ENCOUNTERS Encounter Location Date Diagnosis [place] [address] [address] Apr, 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 operator (current) use of 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 Z79.01 [place] [address] [address] Apr, shelter 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 Z 79.01 [place] [address] [address] Apr, Cellulitis of unspecified part of limb L 03.119 ; Allergic contact dermatitis due to adhesives L23.1 and Chronic pain syndrome G89.4 [place] [address] [address] Apr, [place] [address] [address] Apr, 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 Z 79.01 ; Cellulitis of unspecified part of limb L03.119 ; Chronic pain syndrome G89.4 and Anxiety F41.9 [place] [address] [address] Apr, [place] [address] [address] Apr, [place] [address] [address] Mar, [place] [address] [address] Mar, [address] [address] Mar, Sore throat J02.9 ; Gastroesophageal ref lux disease without esophagitis K21.9 ; Pseudotumor cerebri G93.2 ; Chronic pain syndrome G89.4 ; Choriocarcinoma C58 ; History of pulmonary embolism Z86.711 ; History of DVT (deep vein thrombosis) Z86.718 ; Anxiety F41.9 and Tachycardia R00.[address] [address] Feb, Anxiety 300.00 and Chronic pain 338.[address] [address] Feb, [place] [address] [address] Feb, [place] [address] [address] Jan, 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 t herapy V58.61 and Dysuria 788.[address] [address] Jan, Dysuria 788.[address] [address] Jan, Anxiety 300.00 and Chronic pain 338.29 [place] [address] [address] Jan, [place] [address] [address] Jan, [place] [address] [address] Jan, [place] [address] [address] Dec, Weakness 780.79 [place] [address] [address] Dec, 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 t herapy V58.61 [place] [address] [address] Dec, Palpitations 785.1 ; Tremor 781.0 ; Weak ness 780.79 ; 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 therapy V58.61 and Yeast vaginitis 112.1 [place] [address] [address] Dec, [place] [address] [address] Dec, Cervicalgia 723.1 ; Tachycardia 785.0 ; Pseudotumor cerebri 348.2 and History of venous thromboembolism V12.51 [place] [address] [address] Nov, [place] [address] [address] Nov, [place] [address] [address] Nov, Tachycardia 785.0 ; Pseudotumor cerebri 348.2 ; Anxiety 300.00 and History of venous thromboembolism V12.51 [place] [address] [address] Nov, [place] [address] [address] Nov, [facility] [address] [id number] [place] [address] 16 Nov, 2014 [facility] [address] [place] [id number] [place] [address] 12 Nov, 2014 [facility] [address] [id number] [place] [address] Nov, [facility] [address] [place] [id number] [place] [address] 08 Nov, 2014 [facility] [address] [id number] [place] [address] Nov, [facility] [address] [place] [id number] [place] [address] October, [facility] [address] [place] [id number] [place] [address] October, [facility] [address] [place] [id number] [place] [address] October, Pain in thoracic spine 724.1 and Tachyca rdia 785.0 [facility] [address] [place] [id number] [place] [address] October, [facility] [address] [place] [id number] [place] [address] October, [facility] [address] [place] [id number] [place] [address] 14 Sep, 2014 [facility] [address] [place] [id number] [place] [address] Sep, [facility] [address] [place] [id number] [place] [address] Aug, [facility] [address] [place] [id number] [place] [address] Aug, [facility] [address] [id number] [place] [address] Aug, [facility] [address] [place] [id number] [place] [address] Aug, [facility] [address] [id number] [place] [address] Aug, 2014 [facility] [address] [id number] [place] [address] Aug, 2014 [facility] [address] [id number] [place] [address] Aug, 2014 [facility] [address] [id number] [place] [address] Aug, 2014 [facility] [address] [id number] [place] [address] Aug, 2014 [facility] [address] [id number] [place] [address] Aug, 2014 [facility] [address] [id number] [place] [address] Aug, 2014 [facility] [address] [id number] [place] [address] Aug, 2014 [facility] [address] [id number] [place] [address] Jul, 2014 [facility] [address] [id number] [place] [address] Jul, 2014 [facility] [address] [id number] [place] [address] Jul, 2014 [facility] [address] [id number] [place] [address] Jul, 2014 [facility] [address] [id number] [place] [address] Jul, 2014 [facility] [address] [id number] [place] [address] Jul, 2014 [facility] [address] [id number] [place] [address] Jul, 2014 [facility] [address] [id number] [place] [address] Jul, 2014 [facility] [address] [id number] [place] [address] 20 Jul, 2014 [facility] [address] [id number] [place] [address] 20 Jul, 2014 [facility] [address] [id number] [place] [address] 19 Jul, 2014 [facility] [address] [id number] [place] [address] 19 Jul, 2014 [facility] [address] [id number] [place] [address] 17 Jul, 2014 [facility] [address] [id number] [place] [address] 17 Jul, 2014 [facility] [address] [id number] [place] [address] 16 Jul, 2014 [facility] [address] [id number] [place] [address] 16 Jul, 2014 [facility] [address] [id number] [place] [address] 16 Jul, 2014 [facility] [address] [id number] [place] [address] 16 Jul, 2014 [facility] [address] [id number] [place] [address] 13 Jul, 2014 [facility] [address] [id number] [place] [address] 13 Jul, 2014 [facility] [address] [id number] [place] [address] 13 Jul, 2014 [facility] [address] [id number] [place] [address] 13 Jul, 2014 [facility] [address] [id number] [place] [address] 12 Jul, 2014 [facility] [address] [id number] [place] [address] 12 Jul, 2014 [facility] [address] [id number] [place] [address] Jul, [facility] [address] [facility] [id number] [place] [address] Jul, [facility] [address] [id number] [place] [address] Jul, [facility] [address] [id number] [place] [address] Jul, [facility] [address] [id number] [place] [address] Jul, [facility] [address] [id number] [place] [address] Jul, [facility] [address] [id number] [place] [address] Jun, [facility] [address] [id number] [place] [address] Jun, [facility] [address] [id number] [place] [address] Jun, [facility] [address] [id number] [place] [address] Jun, [facility] [address] [id number] [place] [address] Jun, [facility] [address] [id number] [place] [address] Jun, [facility] [address] [id number] [place] [address] Jun, [facility] [address] [id number] [place] [address] Jun, [facility] [address] [id number] [place] [address] Jun, [facility] [address] [id number] [place] [address] Jun, [facility] [address] [id number] [place] [address] Jun, [facility] [address] [id number] [place] [address] Jun, [facility] [address] [id number] [place] [address] Jun, [facility] [address] [id number] [place] [address] Jun, [facility] [address] [id number] [place] [address] Jun, [facility] [address] [id number] [place] [address] Jun, [facility] [address] [id number] [place] [address] Jun, [facility] [address] [id number] [place] [address] Jun, [facility] [address] [id number] [place] [address] Jun, [facility] [address] [id number] [place] [address] Jun, [facility] [address] [id number] [place] [address] May, [facility] [address] [id number] [place] [address] May, [facility] [address] [id number] [place] [address] May, [facility] [address] [id number] [place] [address] May, [facility] [address] [id number] [place] [address] May, [facility] [address] [id number] [place] [address] May, [facility] [address] [id number] [place] [address] May, [facility] [address] [id number] [place] [address] May, [facility] [address] [facility] [id number] [place] [address] May, [facility] [address] [id number] [place] [address] May, [facility] [address] [id number] [place] [address] May, [facility] [address] [id number] [place] [address] May, [facility] [address] [id number] [place] [address] 18 May, 2014 [facility] [address] [id number] [place] [address] 17 May, 2014 [facility] [address] [id number] [place] [address] 16 May, 2014 [facility] [address] [id number] [place] [address] 16 May, 2014 [facility] [address] [id number] [place] [address] 15 May, 2014 [facility] [address] [id number] [place] [address] 15 May, 2014 [facility] [address] [id number] [place] [address] 12 May, 2014 [facility] [address] [id number] [place] [address] May, [facility] [address] [id number] [place] [address] May, [facility] [address] [id number] [place] [address] May, [facility] [address] [id number] [place] [address] May, [facility] [address] [id number] [place] [address] May, [facility] [address] [id number] [place] [address] May, [facility] [address] [id number] [place] [address] May, [facility] [address] [id number] [place] [address] May, [facility] [address] [id number] [place] [address] May, [facility] [address] [id number] [place] [address] May, [facility] [address] [id number] [place] [address] May, [facility] [address] [id number] [place] [address] May, [facility] [address] [id number] [place] [address] May, [facility] [address] [id number] [place] [address] May, [facility] [address] [id number] [place] [address] May, [facility] [address] [id number] [place] [address] Apr, [facility] [address] [id number] [place] [address] Apr, [facility] [address] [id number] [place] [address] Apr, [facility] [address] [id number] [place] [address] Apr, [facility] [address] [id number] [place] [address] Apr, [facility] [address] [id number] [place] [address] Apr, [facility] [address] [id number] [place] [address] Apr, [facility] [address] [id number] [place] [address] Apr, [facility] [address] [id number] [place] [address] Apr, [facility] [address] [id number] [place] [address] Apr, [facility] [address] [id number] [place] [address] Mar, [facility] [address] [id number] [place] [address] Mar, [facility] [address] [id number] [place] [address] Mar, [facility] [address] [id number] [place] [address] Mar, [facility] [address] [id number] [place] [address] Mar, [facility] [address] [id number] [place] [address] 30 Mar, 2014 [facility] [address] [id number] [place] [address] Mar, [facility] [address] [id number] [place] [address] 17 Mar, 2013 [facility] [address] [id number] [place] [address] 15 Mar, 2014 [facility] [address] [id number] [place] [address] 15 Mar, 2014 [facility] [address] [id number] [place] [address] 15 Mar, 2014 [facility] [address] [id number] [place] [address] 15 Mar, 2014 [facility] [address] [id number] [place] [address] 09 Mar, 2014 [facility] [address] [id number] [place] [address] Mar, 2013 [facility] [address] [id number] [place] [address] Mar, 2013 [facility] [address] [id number] [place] [address] Mar, 2013 [facility] [address] [id number] [place] [address] Mar, 2013 [facility] [address] [id number] [place] [address] Mar, 2013 [facility] [address] [id number] [place] [address] Mar, 2013 [facility] [address] [id number] [place] [address] Mar, 2013 [facility] [address] [id number] [place] [address] 05 Sep, 2013 [facility] [address] [id number] [place] [address] 05 Sep, 2013 [facility] [address] [id number] [place] [address] 04 Sep, 2013 [facility] [address] [id number] [place] [address] 04 Sep, 2013 [facility] [address] [id number] [place] [address] 03 Sep, 2013 [facility] [address] [id number] [place] [address] 03 Sep, 2013 [facility] [address] [id number] [place] [address] Sep, 2013 [facility] [address] [id number] [place] [address] Sep, 2013 [facility] [address] [id number] [place] [address] Sep, 2013 [facility] [address] [id number] [place] [address] Sep, 2013 [facility] [address] [id number] [facility] [place] [address] Jan, [facility] [address] [id number] [facility] [place] [address] Jan, [facility] [address] [facility] [id number] [facility] [place] [address] Jan, [facility] [address] [facility] [id number] [place] [address] Jan, [facility] [address] [facility] [id number] [facility] [place] [address] Jan, [facility] [address] [id number] [facility] [place] [address] Jan, [facility] [address] [facility] [id number] [place] [address] Jan, [facility] [address] [id number] [place] [address] Jan, [facility] [address] [id number] [place] [address] Jan, [facility] [address] [id number] [place] [address] Jan, [facility] [address] [facility] [id number] [place] [address] Jan, [facility] [address] [id number] [place] [address] Jan, [facility] [address] [id number] [place] [address] Dec, [facility] [address] [id number] [place] [address] Dec, [facility] [address] [id number] [place] [address] Dec, [facility] [address] [facility] [id number] [place] [address] Dec, [facility] [address] [id number] [place] [address] Dec, [facility] [address] [facility] [id number] [place] [address] 14 Dec, 2013 [facility] [address] [facility] [id number] [place] [address] Dec, 2013 [facility] [address] [facility] [id number] [place] [address] Dec, 2013 [facility] [address] [id number] [place] [address] Dec, 2013 [facility] [address] [facility] [id number] [place] [address] Dec, 2013 [facility] [address] [id number] [place] [address] Dec, 2013 [facility] [address] [id number] [place] [address] Dec, 2013 [facility] [address] [id number] [place] [address] Nov, 2013 [facility] [address] [id number] [place] [address] Nov, [facility] [address] [id number] [place] [address] Nov, [facility] [address] [id number] [place] [address] Nov, [facility] [address] [id number] [place] [address] Nov, [facility] [address] [id number] [place] [address] Nov, [facility] [address] [id number] [place] [address] Nov, [facility] [address] [id number] [place] [address] Nov, [facility] [address] [id number] [place] [address] Nov, [facility] [address] [id number] [place] [address] Nov, [facility] [address] [id number] [place] [address] Nov, [facility] [address] [id number] [place] [address] Nov, [facility] [address] [id number] [place] [address] Nov, [facility] [address] [id number] [place] [address] Nov, [facility] [address] [id number] [place] [address] October, [facility] [address] [id number] [place] [address] October, [facility] [address] [id number] [place] [address] October, [facility] [place] [facility] [address] [id number] [place] [address] October, [facility] [place] [facility] [address] [id number] [place] [address] October, [facility] [place] [facility] [address] [id number] [place] [address] October, [facility] [place] [facility] [address] [id number] [place] [address] October, [facility] [place] [facility] [address] [id number] [place] [address] October, [facility] [place] [facility] [address] [id number] [place] [address] October, [facility] [place] [facility] [address] [id number] [place] [address] October, [facility] [place] [facility] [address] [id number] [place] [address] October, [facility] [place] [facility] [address] [id number] [place] [address] October, [facility] [place] [facility] [address] [id number] [facility] [place] [address] Sep, [facility] [place] [facility] [address] [id number] [facility] [place] [address] Sep, [facility] [place] [facility] [address] [facility] [id number] [facility] [place] [address] Sep, [facility] [place] [facility] [address] [id number] [place] [address] Sep, [facility] [place] [facility] [address] [id number] [facility] [place] [address] Sep, [facility] [place] [facility] [address] [facility] [id number] [facility] [place] [address] Sep, [facility] [place] [facility] [address] [id number] [place] [address] Aug, [facility] [place] [facility] [address] [id number] [place] [address] Aug, [facility] [place] [facility] [address] [id number] [place] [address] Aug, [facility] [place] [facility] [address] [facility] [id number] [place] [address] Aug, [facility] [place] [facility] [address] [id number] [place] [address] Aug, [facility] [place] [facility] [address] [id number] [place] [address] Aug, [facility] [place] [facility] [address] [id number] [place] [address] Jul, [facility] [place] [facility] [address] [facility] [id number] [place] [address] Jul, [facility] [place] [facility] [address] [id number] [place] [address] Jul, [facility] [place] [facility] [address] [id number] [place] [address] Jul, [facility] [place] [facility] [address] [id number] [place] [address] Jul, [facility] [place] [facility] [address] [facility] [id number] [facility] [place] [address] Jul, [facility] [place] [facility] [address] [id number] [facility] [place] [address] Jul, [facility] [place] [facility] [address] [id number] [place] [address] Jul, [facility] [place] [facility] [address] [id number] [place] [address] Jul, [facility] [place] [facility] [address] [id number] [place] [address] Jul, [facility] [place] [facility] [address] [id number] [place] [address] Jun, [facility] [place] [facility] [address] [id number] [place] [address] Jun, [facility] [place] [facility] [address] [id number] [place] [address] Jun, [facility] [place] [facility] [address] [id number] [place] [address] Jun, [facility] [place] [facility] [address] [id number] [place] [address] Jun, [facility] [place] [facility] [address] [id number] [place] [address] Jun, [facility] [place] [facility] [address] [id number] [place] [address] Jun, [facility] [place] [facility] [address] [id number] [place] [address] Jun, [facility] [place] [facility] [address] [id number] [place] [address] May, [facility] [place] [facility] [address] [id number] [place] [address] May, [facility] [place] [facility] [address] [id number] [place] [address] May, [facility] [place] [facility] [address] [id number] [place] [address] May, 2012 [facility] [place] [facility] [address] [id number] [place] [address] May, [facility] [place] [facility] [address] [id number] [place] [address] May, [facility] [place] [facility] [address] [id number] [place] [address] May, [facility] [place] [facility] [address] [id number] [place] [address] May, [facility] [place] [facility] [address] [id number] [place] [address] Apr, [facility] [place] [facility] [address] [id number] [place] [address] Apr, [facility] [place] [facility] [address] [id number] [place] [address] Apr, [facility] [place] [facility] [address] [id number] [place] [address] Apr, [facility] [place] [facility] [address] [id number] [place] [address] Apr, [facility] [place] [facility] [address] [id number] [place] [address] Apr, [facility] [place] [facility] [address] [id number] [place] [address] Mar, [facility] [place] [facility] [address] [id number] [place] [address] Mar, [facility] [place] [facility] [address] [id number] [place] [address] Mar, [facility] [place] [facility] [address] [id number] [place] [address] Mar, [facility] [place] [facility] [address] [id number] [place] [address] Mar, [facility] [place] [facility] [address] [id number] [place] [address] Mar, [facility] [place] [facility] [address] [id number] [place] [address] Mar, [facility] [place] [facility] [address] [id number] [place] [address] Feb, [facility] [place] [facility] [address] [id number] [place] [address] 30 Feb, 2012 [facility] [place] [facility] [address] [id number] [place] [address] Feb, [facility] [place] [facility] [address] [facility] [id number] [place] [address] Feb, 2012 [facility] [place] [facility] [address] [id number] [place] [address] Feb, [facility] [place] [facility] [address] [id number] [place] [address] Feb, [facility] [place] [facility] [address] [id number] [place] [address] Jan, [facility] [place] [facility] [address] [id number] [place] [address] Jan, [facility] [place] [facility] [address] [id number] [place] [address] Jan, [facility] [place] [facility] [address] [id number] [place] [address] Jan, [facility] [place] [facility] [address] [id number] [place] [address] Jan, [facility] [place] [facility] [address] [id number] [place] [address] Jan, [facility] [place] [facility] [address] [id number] [place] [address] Jan, [facility] [place] [facility] [address] [id number] [place] [address] Jan, [facility] [place] [facility] [address] [id number] [place] [address] Jan, [facility] [place] [facility] [address] [id number] [place] [address] 29 Dec, 2012 [facility] [place] [facility] [address] [id number] [facility] [place] [address] Dec, 2012 [facility] [place] [facility] [address] [facility] [id number] [facility] [place] [address] Dec, 2012 [facility] [place] [facility] [address] [id number] [facility] [place] [address] 18 Dec, 2012 [facility] [place] [facility] [address] [id number] [place] [address] 17 Dec, 2012 [facility] [place] [facility] [address] [facility] [id number] [facility] [place] [address] 16 Dec, 2012 [facility] [place] [facility] [address] [id number] [facility] [place] [address] 15 Dec, 2012 [facility] [place] [facility] [address] [id number] [facility] [place] [address] 09 Dec, 2012 [facility] [place] [facility] [address] [id number] [facility] [place] [address] Dec, 2012 [facility] [place] [facility] [address] [id number] [facility] [place] [address] Dec, 2012 [facility] [place] [facility] [address] [id number] [facility] [place] [address] Dec, [facility] [place] [facility] [address] [id number] [place] [address] Dec, 2012 [facility] [place] [facility] [address] [id number] [place] [address] Dec, 2012 [facility] [place] [facility] [address] [id number] [facility] [place] [address] Nov, [facility] [place] [facility] [address] [id number] [place] [address] Nov, 2012 [facility] [place] [facility] [address] [id number] [place] [address] Nov, [facility] [place] [facility] [address] [id number] [place] [address] Nov, [facility] [place] [facility] [address] [facility] [id number] [facility] [place] [address] October, [facility] [place] [facility] [address] [id number] [place] [address] October, [facility] [place] [facility] [address] [id number] [place] [address] October, [facility] [place] [facility] [address] [id number] [place] [address] October, [facility] [place] [facility] [address] [id number] [facility] [place] [address] October, [facility] [place] [facility] [address] [id number] [facility] [place] [address] October, [facility] [place] [facility] [address] [id number] [place] [address] Sep, [facility] [place] [facility] [address] [id number] [place] [address] Sep, [facility] [place] [facility] [address] [id number] [place] [address] Sep, [facility] [place] [facility] [address] [id number] [place] [address] Sep, [facility] [place] [facility] [address] [id number] [place] [address] Sep, [facility] [place] [facility] [address] [id number] [place] [address] 16 Sep, 2012 [facility] [place] [facility] [address] [id number] [place] [address] Sep, [facility] [place] [facility] [address] [id number] [place] [address] Sep, [facility] [place] [facility] [address] [id number] [place] [address] Sep, [facility] [place] [facility] [address] [id number] [place] [address] Sep, [facility] [place] [facility] [address] [id number] [place] [address] Sep, [facility] [address] [id number] [place] [address] Aug, [facility] [place] [facility] [address] [id number] [place] [address] 25 Aug, 2012 [facility] [place] [facility] [address] [id number] [place] [address] Aug, [facility] [place] [facility] [address] [id number] [place] [address] Aug, [facility] [place] [facility] [address] [id number] [place] [address] 19 Aug, 2012 [facility] [address] [id number] [place] [address] 18 Aug, 2012 [facility] [place] [facility] [address] [id number] [place] [address] 17 Aug, 2012 [facility] [address] [id number] [place] [address] 15 Aug, 2012 [facility] [place] [facility] [address] [id number] [place] [address] 15 Aug, 2012 [facility] [place] [facility] [address] [id number] [place] [address] Aug, [facility] [place] [facility] [address] [id number] [place] [address] Aug, [facility] [place] [facility] [address] [id number] [place] [address] 07 Aug, 2012 [facility] [place] [facility] [address] [id number] [place] [address] 27 Jul, 2012 [facility] [place] [facility] [address] [id number] [place] [address] Jul, [facility] [place] [facility] [address] [id number] [place] [address] 26 Jul, 2012 [facility] [place] [facility] [address] [id number] [place] [address] 22 Jul, 2012 [facility] [place] [facility] [address] [id number] [place] [address] Jul, 2012 [facility] [address] [id number] [place] [address] Jul, 2012 [facility] [place] [facility] [address] [id number] [place] [address] Jul, 2012 [facility] [place] [facility] [address] [id number] [place] [address] Jul, [facility] [place] [facility] [address] [id number] [place] [address] Jul, [facility] [place] [facility] [address] [id number] [place] [address] Jul, [facility] [place] [facility] [address] [id number] [place] [address] May, [facility] [address] [id number] [id number] May, [facility] [place] [facility] [id number] [place] [address] May, [facility] [place] [facility] [address] [id number] [place] [address] May, [facility] [place] [facility] [id number] [place] [address] May, [facility] [place] [facility] [id number] [place] [address] Apr, [facility] [place] [address] [id number] [id number] Apr, [facility] [place] [facility] [id number] [place] [address] Apr, [facility] [place] [facility] [id number] [place] [address] Mar, [facility] [address] [id number] [id number] Mar, [facility] [place] [facility] [id number] [place] [address] Mar, [facility] [id number] [id number] 13 Feb, 2012 [facility] [place] [facility] [address] [id number] [place] [address] Feb, [facility] [place] [facility] [address] [id number] [place] [address] Feb, [facility] [address] [facility] [id number] 10 Feb, 2012 [facility] [address] [facility] [id number] 07 Feb, 2012 [facility] [address] [facility] [id number] Jan, [facility] [place] [facility] [id number] [place] [address] Jan, [facility] [address] [facility] [id number] Jan, [facility] [id number] [id number] Jan, [facility] [address] [id number] [id number] Jan, [facility] [place] [facility] [address] [id number] [place] [address] Jan, [facility] [place] [facility] [address] [id number] [place] [address] Jan, [facility] [place] [facility] [id number] [place] [address] Aug, [facility] [address] [facility] [id number] Aug, [facility] [place] [facility] [address] [id number] [place] [address] Jul, [facility] [place] [facility] [id number] [place] [address] Jul, [facility] [place] [facility] [id number] [place] [address] Jul, [facility] [address] [id number] [id number] Jul, [facility] [place] [facility] [address] [id number] [place] [address] Jul, [facility] [address] [facility] [id number] Jul, [facility] [place] [facility] [id number] [place] [address] Jul, [facility] [place] [address] [id number] [id number] Jul, [facility] [address] [id number] [id number] Jul, [facility] [place] [address] [id number] [id number] Jul, [facility] [place] [facility] [id number] [place] [address] May, [facility] [place] [facility] [id number] [place] [address] May, [facility] [place] [facility] [id number] [place] [address] May, [facility] [place] [facility] [id number] [place] [address] Apr, [facility] [place] [facility] [id number] [place] [address] Jan, [facility] [place] [facility] [id number] [place] [address] Jan, [facility] [place] [facility] [id number] [place] [address] Dec, [facility] [place] [facility] [address] [id number] [place] [address] Dec, [facility] [place] [facility] [id number] [place] [address] 16 May, 2009 [facility] [place] [facility] [id number] [place] [address] Mar, [facility] [place] [facility] [id number] [place] [address] Mar, [facility] [place] [facility] [address] [facility] [id number] [place] [address] Jan, IMMUNIZATIONS No Known Immunizations SOCIAL HISTORY [...]
--- OUTSIDE RECORDS SUMMARY | 2020-01-28 12:34 | XMS REPORT ---
Author Author Heydi ROBB [facility] Address [address] [place] [address] Care Team Providers Care Shirt Finisher Name Role Phone CEZAR JIMI Unavailable PROBLEMS Type Condition ICD9-CM Code SYW15-NQ Code Onset Dates Condition S tatus SNOMED Code Problem Chronic pain syndrome G89.4 Active 298556403 Problem Sore throat J02.9 Active 64375755 3 Problem Choriocarcinoma C58 Active 1881 39872 Problem 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 designer 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 Z79.01 Active 057619646 Problem History of venous thromboembolism V12.51 Active 075825481 Problem Cellulitis of unspecified part of limb L03.119 Active 600173432 Problem Gastroesophageal reflux disease without esophagitis K21.9 Active 369292300 Problem History of pulmonary embolism Z86.711 Active 328156779 Problem Pseudotumor cerebri G93.2 Active 26619551 Problem History of DVT (deep vein thrombosis) Z86.718 Active 660027983 ALLERGIES No Information ENCOUNTERS Encounter Location Date Diagnosis [place] [address] [address] Apr, 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 designer (current) use of 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 Z79.01 [place] [address] [address] Apr, [facility] 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 Z 79.01 [place] [address] [address] Apr, Cellulitis of unspecified part of limb L 03.119 ; Allergic contact dermatitis due to adhesives L23.1 and Chronic pain syndrome G89.4 [place] [address] [address] Apr, [place] [address] [address] Apr, 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 designer 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 Z 79.01 ; Cellulitis of unspecified part of limb L03.119 ; Chronic pain syndrome G89.4 and Anxiety F41.9 [place] [address] [address] Apr, [place] [address] [address] Apr, [place] [address] [address] Mar, [place] [address] [address] Mar, [address] [address] Mar, Sore throat J02.9 ; Gastroesophageal ref lux disease without esophagitis K21.9 ; Pseudotumor cerebri G93.2 ; Chronic pain syndrome G89.4 ; Choriocarcinoma C58 ; History of pulmonary embolism Z86.711 ; History of DVT (deep vein thrombosis) Z86.718 ; Anxiety F41.9 and Tachycardia R00.[address] [address] Feb, Anxiety 300.00 and Chronic pain 338.[address] [address] Feb, [place] [address] [address] Feb, [place] [address] [address] Jan, 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 designer 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 t herapy V58.61 and Dysuria 788.[address] [address] Jan, Dysuria 788.[address] [address] Jan, Anxiety 300.00 and Chronic pain 338.29 [place] [address] [address] Jan, [place] [address] [address] Jan, [place] [address] [address] Jan, [place] [address] [address] Dec, Weakness 780.79 [place] [address] [address] Dec, 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 designer 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 t herapy V58.61 [place] [address] [address] Dec, Palpitations 785.1 ; Tremor 781.0 ; Weak ness 780.79 ; 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 designer 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 therapy V58.61 and Yeast vaginitis 112.1 [place] [address] [address] Dec, [place] [address] [address] Dec, Cervicalgia 723.1 ; Tachycardia 785.0 ; Pseudotumor cerebri 348.2 and History of venous thromboembolism V12.51 [place] [address] [address] Nov, [place] [address] [address] Nov, [place] [address] [address] Nov, Tachycardia 785.0 ; Pseudotumor cerebri 348.2 ; Anxiety 300.00 and History of venous thromboembolism V12.51 [place] [address] [address] Nov, [place] [address] [address] Nov, [facility] [address] [id number] [place] [address] 16 Nov, 2014 [facility] [address] [place] [id number] [place] [address] 12 Nov, 2014 [facility] [address] [id number] [place] [address] Nov, [facility] [address] [place] [id number] [place] [address] 08 Nov, 2014 [facility] [address] [id number] [place] [address] Nov, [facility] [address] [place] [id number] [place] [address] October, [facility] [address] [place] [id number] [place] [address] October, [facility] [address] [place] [id number] [place] [address] October, Pain in thoracic spine 724.1 and Tachyca rdia 785.0 [facility] [address] [place] [address] [id number] [place] [address] October, [facility] [address] [place] [address] [id number] [place] [address] October, [facility] [address] [place] [id number] [place] [address] 14 Sep, 2014 [facility] [address] [place] [address] [id number] [place] [address] Sep, [facility] [address] [place] [address] [id number] [place] [address] Aug, [facility] [address] [place] [address] [id number] [place] [address] Aug, [facility] [address] [id number] [place] [address] Aug, [facility] [address] [place] [address] [id number] [place] [address] Aug, [facility] [address] [id number] [place] [address] Aug, 2014 [facility] [address] [id number] [place] [address] Aug, 2014 [facility] [address] [id number] [place] [address] Aug, 2014 [facility] [address] [id number] [place] [address] Aug, 2014 [facility] [address] [id number] [place] [address] Aug, 2014 [facility] [address] [id number] [place] [address] Aug, 2014 [facility] [address] [id number] [place] [address] Aug, 2014 [facility] [address] [id number] [place] [address] Aug, 2014 [facility] [address] [id number] [place] [address] Jul, 2014 [facility] [address] [id number] [place] [address] Jul, 2014 [facility] [address] [id number] [place] [address] Jul, 2014 [facility] [address] [id number] [place] [address] Jul, 2014 [facility] [address] [id number] [place] [address] Jul, 2014 [facility] [address] [id number] [place] [address] Jul, 2014 [facility] [address] [id number] [place] [address] Jul, 2014 [facility] [address] [id number] [place] [address] Jul, 2014 [facility] [address] [id number] [place] [address] 20 Jul, 2014 [facility] [address] [id number] [place] [address] 20 Jul, 2014 [facility] [address] [id number] [place] [address] 19 Jul, 2014 [facility] [address] [id number] [place] [address] 19 Jul, 2014 [facility] [address] [id number] [place] [address] 17 Jul, 2014 [facility] [address] [id number] [place] [address] 17 Jul, 2014 [facility] [address] [id number] [place] [address] 16 Jul, 2014 [facility] [address] [id number] [place] [address] 16 Jul, 2014 [facility] [address] [id number] [place] [address] 16 Jul, 2014 [facility] [address] [id number] [place] [address] 16 Jul, 2014 [facility] [address] [id number] [place] [address] 13 Jul, 2014 [facility] [address] [id number] [place] [address] 13 Jul, 2014 [facility] [address] [id number] [place] [address] 13 Jul, 2014 [facility] [address] [id number] [place] [address] 13 Jul, 2014 [facility] [address] [id number] [place] [address] 12 Jul, 2014 [facility] [address] [id number] [place] [address] 12 Jul, 2014 [facility] [address] [id number] [place] [address] Jul, [facility] [address] [facility] [id number] [place] [address] Jul, [facility] [address] [id number] [place] [address] Jul, [facility] [address] [id number] [place] [address] Jul, [facility] [address] [id number] [place] [address] Jul, [facility] [address] [id number] [place] [address] Jul, [facility] [address] [id number] [place] [address] Jun, [facility] [address] [id number] [place] [address] Jun, [facility] [address] [id number] [place] [address] Jun, [facility] [address] [id number] [place] [address] Jun, [facility] [address] [id number] [place] [address] Jun, [facility] [address] [id number] [place] [address] Jun, [facility] [address] [id number] [place] [address] Jun, [facility] [address] [id number] [place] [address] Jun, [facility] [address] [id number] [place] [address] Jun, [facility] [address] [id number] [place] [address] Jun, [facility] [address] [id number] [place] [address] Jun, [facility] [address] [id number] [place] [address] Jun, [facility] [address] [id number] [place] [address] Jun, [facility] [address] [id number] [place] [address] Jun, [facility] [address] [id number] [place] [address] Jun, [facility] [address] [id number] [place] [address] Jun, [facility] [address] [id number] [place] [address] Jun, [facility] [address] [id number] [place] [address] Jun, [facility] [address] [id number] [place] [address] Jun, [facility] [address] [id number] [place] [address] Jun, [facility] [address] [id number] [place] [address] May, [facility] [address] [id number] [place] [address] May, [facility] [address] [id number] [place] [address] May, [facility] [address] [id number] [place] [address] May, [facility] [address] [id number] [place] [address] May, [facility] [address] [id number] [place] [address] May, [facility] [address] [id number] [place] [address] May, [facility] [address] [id number] [place] [address] May, [facility] [address] [facility] [id number] [place] [address] May, [facility] [address] [id number] [place] [address] May, [facility] [address] [id number] [place] [address] May, [facility] [address] [id number] [place] [address] May, [facility] [address] [id number] [place] [address] 18 May, 2014 [facility] [address] [id number] [place] [address] 17 May, 2014 [facility] [address] [id number] [place] [address] 16 May, 2014 [facility] [address] [id number] [place] [address] 16 May, 2014 [facility] [address] [id number] [place] [address] 15 May, 2014 [facility] [address] [id number] [place] [address] 15 May, 2014 [facility] [address] [id number] [place] [address] 12 May, 2014 [facility] [address] [id number] [place] [address] May, [facility] [address] [id number] [place] [address] May, [facility] [address] [id number] [place] [address] May, [facility] [address] [id number] [place] [address] May, [facility] [address] [id number] [place] [address] May, [facility] [address] [id number] [place] [address] May, [facility] [address] [id number] [place] [address] May, [facility] [address] [id number] [place] [address] May, [facility] [address] [id number] [place] [address] May, [facility] [address] [id number] [place] [address] May, [facility] [address] [id number] [place] [address] May, [facility] [address] [id number] [place] [address] May, [facility] [address] [id number] [place] [address] May, [facility] [address] [id number] [place] [address] May, [facility] [address] [id number] [place] [address] May, [facility] [address] [id number] [place] [address] Apr, [facility] [address] [id number] [place] [address] Apr, [facility] [address] [id number] [place] [address] Apr, [facility] [address] [id number] [place] [address] Apr, [facility] [address] [id number] [place] [address] Apr, [facility] [address] [id number] [place] [address] Apr, [facility] [address] [id number] [place] [address] Apr, [facility] [address] [id number] [place] [address] Apr, [facility] [address] [id number] [place] [address] Apr, [facility] [address] [id number] [place] [address] Apr, [facility] [address] [id number] [place] [address] Mar, [facility] [address] [id number] [place] [address] Mar, [facility] [address] [id number] [place] [address] Mar, [facility] [address] [id number] [place] [address] Mar, [facility] [address] [id number] [place] [address] Mar, [facility] [address] [id number] [place] [address] 30 Mar, 2014 [facility] [address] [id number] [place] [address] Mar, [facility] [address] [id number] [place] [address] 17 Mar, 2013 [facility] [address] [id number] [place] [address] 15 Mar, 2014 [facility] [address] [id number] [place] [address] 15 Mar, 2014 [facility] [address] [id number] [place] [address] 15 Mar, 2014 [facility] [address] [id number] [place] [address] 15 Mar, 2014 [facility] [address] [id number] [place] [address] 09 Mar, 2014 [facility] [address] [id number] [place] [address] Mar, 2013 [facility] [address] [id number] [place] [address] Mar, 2013 [facility] [address] [id number] [place] [address] Mar, 2013 [facility] [address] [id number] [place] [address] Mar, 2013 [facility] [address] [id number] [place] [address] Mar, 2013 [facility] [address] [id number] [place] [address] Mar, 2013 [facility] [address] [id number] [place] [address] Mar, 2013 [facility] [address] [id number] [place] [address] 05 Sep, 2013 [facility] [address] [id number] [place] [address] 05 Sep, 2013 [facility] [address] [id number] [place] [address] 04 Sep, 2013 [facility] [address] [id number] [place] [address] 04 Sep, 2013 [facility] [address] [id number] [place] [address] 03 Sep, 2013 [facility] [address] [id number] [place] [address] 03 Sep, 2013 [facility] [address] [id number] [place] [address] Sep, 2013 [facility] [address] [id number] [place] [address] Sep, 2013 [facility] [address] [id number] [place] [address] Sep, 2013 [facility] [address] [id number] [place] [address] Sep, 2013 [facility] [address] [id number] [place] [address] Jan, [facility] [address] [id number] [place] [address] Jan, [facility] [address] [facility] [id number] [place] [address] Jan, [facility] [address] [facility] [id number] [place] [address] Jan, [facility] [address] [facility] [id number] [place] [address] Jan, [facility] [address] [id number] [place] [address] Jan, [facility] [address] [facility] [id number] [place] [address] Jan, [facility] [address] [id number] [place] [address] Jan, [facility] [address] [id number] [place] [address] Jan, [facility] [address] [id number] [place] [address] Jan, [facility] [address] [facility] [id number] [place] [address] Jan, [facility] [address] [id number] [place] [address] Jan, [facility] [address] [id number] [place] [address] Dec, [facility] [address] [id number] [place] [address] Dec, [facility] [address] [id number] [place] [address] Dec, [facility] [address] [facility] [id number] [place] [address] Dec, [facility] [address] [id number] [place] [address] Dec, [facility] [address] [facility] [id number] [place] [address] 14 Dec, 2013 [facility] [address] [facility] [id number] [place] [address] Dec, 2013 [facility] [address] [facility] [id number] [place] [address] Dec, 2013 [facility] [address] [id number] [place] [address] Dec, 2013 [facility] [address] [facility] [id number] [place] [address] Dec, 2013 [facility] [address] [id number] [place] [address] Dec, 2013 [facility] [address] [id number] [place] [address] Dec, 2013 [facility] [address] [id number] [place] [address] Nov, 2013 [facility] [address] [id number] [place] [address] Nov, [facility] [address] [id number] [place] [address] Nov, [facility] [address] [id number] [place] [address] Nov, [facility] [address] [id number] [place] [address] Nov, [facility] [address] [id number] [place] [address] Nov, [facility] [address] [id number] [place] [address] Nov, [facility] [address] [id number] [place] [address] Nov, [facility] [address] [id number] [place] [address] Nov, [facility] [address] [id number] [place] [address] Nov, [facility] [address] [id number] [place] [address] Nov, [facility] [address] [id number] [place] [address] Nov, [facility] [address] [id number] [place] [address] Nov, [facility] [address] [id number] [place] [address] Nov, [facility] [address] [id number] [place] [address] October, [facility] [address] [id number] [place] [address] October, [facility] [address] [id number] [place] [address] October, [facility] [address] [id number] [place] [address] October, [facility] [address] [id number] [place] [address] October, [facility] [address] [id number] [place] [address] October, [facility] [address] [id number] [place] [address] October, [facility] [address] [id number] [place] [address] October, [facility] [address] [id number] [place] [address] October, [facility] [address] [id number] [place] [address] October, [facility] [address] [id number] [place] [address] October, [facility] [address] [id number] [place] [address] October, [facility] [address] [id number] [place] [address] Sep, [facility] [address] [id number] [place] [address] Sep, [facility] [address] [facility] [id number] [place] [address] Sep, [facility] [address] [id number] [place] [address] Sep, [facility] [address] [id number] [place] [address] Sep, [facility] [address] [facility] [id number] [place] [address] Sep, [facility] [address] [id number] [place] [address] Aug, [facility] [address] [id number] [place] [address] Aug, [facility] [address] [id number] [place] [address] Aug, [facility] [address] [facility] [id number] [place] [address] Aug, [facility] [address] [id number] [place] [address] Aug, [facility] [address] [id number] [place] [address] Aug, [facility] [place] [facility] [address] [id number] [place] [address] Jul, [facility] [place] [facility] [address] [facility] [id number] [place] [address] Jul, [facility] [place] [facility] [address] [id number] [place] [address] Jul, [facility] [place] [facility] [address] [id number] [place] [address] Jul, [facility] [place] [facility] [address] [id number] [place] [address] Jul, [facility] [place] [facility] [address] [facility] [id number] [place] [address] Jul, [facility] [place] [facility] [address] [id number] [place] [address] Jul, [facility] [place] [facility] [address] [id number] [place] [address] Jul, [facility] [place] [facility] [address] [id number] [place] [address] Jul, [facility] [place] [facility] [address] [id number] [place] [address] Jul, [facility] [place] [facility] [address] [id number] [place] [address] Jun, [facility] [place] [facility] [address] [id number] [place] [address] Jun, [facility] [place] [facility] [address] [id number] [place] [address] Jun, [facility] [place] [facility] [address] [id number] [place] [address] Jun, [facility] [place] [facility] [address] [id number] [place] [address] Jun, [facility] [place] [facility] [address] [id number] [place] [address] Jun, [facility] [place] [facility] [address] [id number] [place] [address] Jun, [facility] [place] [facility] [address] [id number] [place] [address] Jun, [facility] [place] [facility] [address] [id number] [place] [address] May, [facility] [place] [facility] [address] [id number] [place] [address] May, [facility] [place] [facility] [address] [id number] [place] [address] May, [facility] [place] [facility] [address] [id number] [place] [address] May, 2012 [facility] [place] [facility] [address] [id number] [place] [address] May, [facility] [place] [facility] [address] [id number] [place] [address] May, [facility] [place] [facility] [address] [id number] [place] [address] May, [facility] [place] [facility] [address] [id number] [place] [address] May, [facility] [place] [facility] [address] [id number] [place] [address] Apr, [facility] [place] [facility] [address] [id number] [place] [address] Apr, [facility] [place] [facility] [address] [id number] [place] [address] Apr, [facility] [place] [facility] [address] [id number] [place] [address] Apr, [facility] [place] [facility] [address] [id number] [place] [address] Apr, [facility] [place] [facility] [address] [id number] [place] [address] Apr, [facility] [place] [facility] [address] [id number] [place] [address] Mar, [facility] [place] [facility] [address] [id number] [place] [address] Mar, [facility] [place] [facility] [address] [id number] [place] [address] Mar, [facility] [place] [facility] [address] [id number] [place] [address] Mar, [facility] [place] [facility] [address] [id number] [place] [address] Mar, [facility] [place] [facility] [address] [id number] [place] [address] Mar, [facility] [place] [facility] [address] [id number] [place] [address] Mar, [facility] [place] [facility] [address] [id number] [place] [address] Feb, [facility] [place] [facility] [address] [id number] [place] [address] 30 Feb, 2012 [facility] [place] [facility] [address] [id number] [place] [address] Feb, [facility] [place] [facility] [address] [facility] [id number] [place] [address] Feb, 2012 [facility] [place] [facility] [address] [id number] [place] [address] Feb, [facility] [place] [facility] [address] [id number] [place] [address] Feb, [facility] [place] [facility] [address] [id number] [place] [address] Jan, [facility] [place] [facility] [address] [id number] [place] [address] Jan, [facility] [place] [facility] [address] [id number] [place] [address] Jan, [facility] [place] [facility] [address] [id number] [place] [address] Jan, [facility] [place] [facility] [address] [id number] [place] [address] Jan, [facility] [place] [facility] [address] [id number] [place] [address] Jan, [facility] [place] [facility] [address] [id number] [place] [address] Jan, [facility] [place] [facility] [address] [id number] [place] [address] Jan, [facility] [place] [facility] [address] [id number] [place] [address] Jan, [facility] [place] [facility] [address] [id number] [place] [address] 29 Dec, 2012 [facility] [place] [facility] [address] [id number] [place] [address] Dec, 2012 [facility] [place] [facility] [address] [facility] [id number] [place] [address] Dec, 2012 [facility] [place] [facility] [address] [id number] [place] [address] 18 Dec, 2012 [facility] [place] [facility] [address] [id number] [place] [address] 17 Dec, 2012 [facility] [place] [facility] [address] [facility] [id number] [place] [address] 16 Dec, 2012 [facility] [place] [facility] [address] [id number] [place] [address] 15 Dec, 2012 [facility] [place] [facility] [address] [id number] [place] [address] 09 Dec, 2012 [facility] [place] [facility] [address] [id number] [place] [address] Dec, 2012 [facility] [place] [facility] [address] [id number] [place] [address] Dec, 2012 [facility] [place] [facility] [address] [id number] [place] [address] Dec, [facility] [place] [facility] [address] [id number] [place] [address] Dec, 2012 [facility] [place] [facility] [address] [id number] [place] [address] Dec, 2012 [facility] [place] [facility] [address] [id number] [place] [address] Nov, [facility] [place] [facility] [address] [id number] [place] [address] Nov, 2012 [facility] [place] [facility] [address] [id number] [place] [address] Nov, [facility] [place] [facility] [address] [id number] [place] [address] Nov, [facility] [place] [facility] [address] [facility] [id number] [place] [address] October, [facility] [place] [facility] [address] [id number] [place] [address] October, [facility] [place] [facility] [address] [id number] [place] [address] October, [facility] [place] [facility] [address] [id number] [place] [address] October, [facility] [place] [facility] [address] [id number] [place] [address] October, [facility] [place] [facility] [address] [id number] [place] [address] October, [facility] [place] [facility] [address] [id number] [place] [address] Sep, [facility] [place] [facility] [address] [id number] [place] [address] Sep, [facility] [place] [facility] [address] [id number] [place] [address] Sep, [facility] [place] [facility] [address] [id number] [place] [address] Sep, [facility] [place] [facility] [address] [id number] [place] [address] Sep, [facility] [place] [facility] [address] [id number] [place] [address] 16 Sep, 2012 [facility] [place] [facility] [address] [id number] [place] [address] Sep, [facility] [place] [facility] [address] [id number] [place] [address] Sep, [facility] [place] [facility] [address] [id number] [place] [address] Sep, [facility] [place] [facility] [address] [id number] [place] [address] Sep, [facility] [place] [facility] [address] [id number] [place] [address] Sep, [facility] [address] [id number] [place] [address] Aug, [facility] [place] [facility] [address] [id number] [place] [address] 25 Aug, 2012 [facility] [place] [facility] [address] [id number] [place] [address] Aug, [facility] [place] [facility] [address] [id number] [place] [address] Aug, [facility] [place] [facility] [address] [id number] [place] [address] 19 Aug, 2012 [facility] [address] [id number] [place] [address] 18 Aug, 2012 [facility] [place] [facility] [address] [id number] [place] [address] 17 Aug, 2012 [facility] [address] [id number] [place] [address] 15 Aug, 2012 [facility] [place] [facility] [address] [id number] [place] [address] 15 Aug, 2012 [facility] [place] [facility] [address] [id number] [place] [address] Aug, [facility] [place] [facility] [address] [id number] [place] [address] Aug, [facility] [place] [facility] [address] [id number] [place] [address] 07 Aug, 2012 [facility] [place] [facility] [address] [id number] [place] [address] 27 Jul, 2012 [facility] [place] [facility] [address] [id number] [place] [address] Jul, [facility] [place] [facility] [address] [id number] [place] [address] 26 Jul, 2012 [facility] [place] [facility] [address] [id number] [place] [address] 22 Jul, 2012 [facility] [place] [facility] [address] [id number] [place] [address] Jul, 2012 [facility] [address] [id number] [place] [address] Jul, 2012 [facility] [place] [facility] [address] [id number] [place] [address] Jul, 2012 [facility] [place] [facility] [address] [id number] [place] [address] Jul, [facility] [place] [facility] [address] [id number] [place] [address] Jul, [facility] [place] [facility] [address] [id number] [place] [address] Jul, [facility] [place] [facility] [address] [id number] [place] [address] May, [facility] [id number] [id number] May, [facility] [place] [facility] [id number] [place] [address] May, [facility] [place] [facility] [address] [id number] [place] [address] May, [facility] [place] [facility] [id number] [place] [address] May, [facility] [place] [facility] [id number] [place] [address] Apr, [facility] [address] [id number] [id number] Apr, [facility] [place] [facility] [id number] [place] [address] Apr, [facility] [place] [facility] [id number] [place] [address] Mar, [facility] [id number] [id number] Mar, [facility] [place] [facility] [id number] [place] [address] Mar, [facility] [place] [id number] [id number] 13 Feb, 2012 [facility] [place] [facility] [address] [id number] [place] [address] Feb, [facility] [place] [facility] [address] [id number] [place] [address] Feb, [facility] [address] [id number] [id number] 10 Feb, 2012 [facility] [address] [id number] [address] 07 Feb, 2012 [facility] [address] [id number] [id number] Jan, [facility] [place] [facility] [id number] [place] [address] Jan, [facility] [address] [id number] [id number] Jan, [facility] [id number] [id number] Jan, [facility] [id number] [id number] Jan, [facility] [place] [facility] [address] [id number] [place] [address] Jan, [facility] [place] [facility] [address] [id number] [place] [address] Jan, [facility] [place] [facility] [id number] [place] [address] Aug, [facility] [address] [id number] [id number] Aug, [facility] [place] [facility] [address] [id number] [place] [address] Jul, [facility] [place] [facility] [id number] [place] [address] Jul, [facility] [place] [facility] [id number] [place] [address] Jul, [facility] [address] [id number] [id number] Jul, [facility] [place] [facility] [address] [id number] [place] [address] Jul, [facility] [address] [id number] [id number] Jul, [facility] [place] [facility] [id number] [place] [address] Jul, [facility] [address] [facility] [id number] Jul, [facility] [address] [id number] [id number] Jul, [facility] [address] [facility] [id number] Jul, [facility] [place] [facility] [id number] [place] [address] May, [facility] [place] [facility] [id number] [place] [address] May, [facility] [place] [facility] [id number] [place] [address] May, [facility] [place] [facility] [id number] [place] [address] Apr, [facility] [place] [facility] [id number] [place] [address] Jan, [facility] [place] [facility] [id number] [place] [address] Jan, [facility] [place] [facility] [id number] [place] [address] Dec, [facility] [place] [facility] [address] [id number] [place] [address] Dec, [facility] [place] [facility] [id number] [place] [address] 16 May, 2009 [facility] [place] [facility] [id number] [place] [address] Mar, [facility] [place] [facility] [id number] [place] [address] Mar, [facility] [place] [facility] [address] [facility] [id number] [place] [address] Jan, IMMUNIZATIONS No Known Immunizations SOCIAL HISTORY [...]
--- OUTSIDE RECORDS SUMMARY | 2020-01-28 12:35 | XMS REPORT ---
Author Author Heydi MARINO Organization [facility] Address [address] [place] [address] Care Team Providers Care Paste Worker Name Role Phone CELESTE MARINO Unavailable PROBLEMS Type Condition ICD9-CM Code LHO34-IR Code Onset Dates Condition S tatus SNOMED Code Problem Chronic pain syndrome G89.4 Active 732896000 Problem Sore throat J02.9 Active 34509499 3 Problem Choriocarcinoma C58 Active 1881 20367 Problem [facility] 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 Z79.01 Active 853818123 Problem History of venous thromboembolism V12.51 Active 233503070 Problem Cellulitis of unspecified part of limb L03.119 Active 319087193 Problem Gastroesophageal reflux disease without esophagitis K21.9 Active 742424360 Problem History of pulmonary embolism Z86.711 Active 264731963 Problem Pseudotumor cerebri G93.2 Active 81922894 Problem History of DVT (deep vein thrombosis) Z86.718 Active 829626758 ALLERGIES No Information ENCOUNTERS Encounter Location Date Diagnosis [place] [id number] [place] [address] Apr, 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 [place] [id number] [place] [address] Apr, [facility] 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 Z 79.01 [place] [address] [address] Apr, Cellulitis of unspecified part of limb L 03.119 ; Allergic contact dermatitis due to adhesives L23.1 and Chronic pain syndrome G89.4 [place] [address] [address] Apr, [place] [address] [address] Apr, [facility] 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 Z 79.01 ; Cellulitis of unspecified part of limb L03.119 ; Chronic pain syndrome G89.4 and Anxiety F41.9 [place] [address] [address] Apr, [place] [address] [address] Apr, [place] [address] [address] Mar, [place] [address] [address] Mar, [address] [address] Mar, Sore throat J02.9 ; Gastroesophageal ref lux disease without esophagitis K21.9 ; Pseudotumor cerebri G93.2 ; Chronic pain syndrome G89.4 ; Choriocarcinoma C58 ; History of pulmonary embolism Z86.711 ; History of DVT (deep vein thrombosis) Z86.718 ; Anxiety F41.9 and Tachycardia R00.[address] [address] Feb, Anxiety 300.00 and Chronic pain 338.[address] [address] Feb, [address] [address] Feb, [place] [address] [address] Jan, [facility] 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 t herapy V58.61 and Dysuria 788.[address] [address] Jan, Dysuria 788.1 [place] [address] [address] Jan, Anxiety 300.00 and Chronic pain 338.29 [place] [address] [address] Jan, [place] [address] [address] Jan, [place] [address] [address] Jan, [place] [address] [address] Dec, Weakness 780.79 [place] [address] [address] Dec, 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 [place] [address] [address] Dec, Palpitations 785.1 ; Tremor 781.0 ; Weak ness 780.79 ; 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 and Yeast vaginitis 112.1 [place] [address] [address] Dec, [place] [address] [address] Dec, Cervicalgia 723.1 ; Tachycardia 785.0 ; Pseudotumor cerebri 348.2 and History of venous thromboembolism V12.51 [place] [address] [address] Nov, [place] [address] [address] Nov, [place] [address] [address] Nov, Tachycardia 785.0 ; Pseudotumor cerebri 348.2 ; Anxiety 300.00 and History of venous thromboembolism V12.51 [place] [address] [address] Nov, [place] [address] [address] Nov, [facility] [address] [id number] [place] [address] 16 Nov, 2014 [facility] [address] [id number] [place] [address] Nov, [facility] [address] [id number] [place] [address] Nov, [facility] [id number] [place] [address] Nov, [facility] [address] [id number] [place] [address] Nov, [facility] [id number] [place] [address] October, [facility] [id number] [place] [address] October, [facility] [id number] [place] [address] October, Pain in thoracic spine 724.1 and Tachyca rdia 785.0 [facility] [id number] [place] [address] October, [facility] [id number] [place] [address] October, [facility] [id number] [place] [address] Sep, [facility] [id number] [place] [address] Sep, [facility] [address] [id number] [place] [address] Aug, [facility] [id number] [place] [address] Aug, [facility] [id number] [place] [address] Aug, [facility] [id number] [place] [address] Aug, [facility] [address] [id number] [place] [address] Aug, [facility] [address] [id number] [place] [address] Aug, 2014 [facility] [address] [id number] [place] [address] Aug, [facility] [address] [id number] [place] [address] Aug, [facility] [address] [id number] [place] [address] Aug, [facility] [address] [id number] [place] [address] Aug, [facility] [address] [id number] [place] [address] Aug, [facility] [address] [id number] [place] [address] Aug, [facility] [address] [id number] [place] [address] Jul, 2014 [facility] [address] [id number] [place] [address] Jul, 2014 [facility] [address] [id number] [place] [address] Jul, 2014 [facility] [address] [id number] [place] [address] Jul, 2014 [facility] [address] [id number] [place] [address] Jul, 2014 [facility] [address] [id number] [place] [address] Jul, 2014 [facility] [address] [id number] [place] [address] Jul, 2014 [facility] [address] [id number] [place] [address] Jul, 2014 [facility] [address] [id number] [place] [address] 20 Jul, 2014 [facility] [address] [id number] [place] [address] 20 Jul, 2014 [facility] [address] [id number] [place] [address] 19 Jul, 2014 [facility] [address] [id number] [place] [address] 19 Jul, 2014 [facility] [address] [id number] [place] [address] 17 Jul, 2014 [facility] [address] [id number] [place] [address] 17 Jul, 2014 [facility] [address] [id number] [place] [address] 16 Jul, 2014 [facility] [address] [id number] [place] [address] 16 Jul, 2014 [facility] [address] [id number] [place] [address] 16 Jul, 2014 [facility] [address] [id number] [place] [address] 16 Jul, 2014 [facility] [address] [id number] [place] [address] 13 Jul, 2014 [facility] [address] [id number] [place] [address] 13 Jul, 2014 [facility] [address] [id number] [place] [address] 13 Jul, 2014 [facility] [address] [id number] [place] [address] 13 Jul, 2014 [facility] [address] [id number] [place] [address] 12 Jul, 2014 [facility] [address] [id number] [place] [address] 12 Jul, 2014 [facility] [address] [id number] [place] [address] Jul, [facility] [address] [facility] [id number] [place] [address] Jul, [facility] [address] [id number] [place] [address] Jul, [facility] [address] [id number] [place] [address] Jul, [facility] [address] [id number] [place] [address] Jul, [facility] [address] [id number] [place] [address] Jul, [facility] [address] [id number] [place] [address] Jun, [facility] [address] [id number] [place] [address] Jun, [facility] [address] [id number] [place] [address] Jun, [facility] [address] [id number] [place] [address] Jun, [facility] [address] [id number] [place] [address] Jun, [facility] [address] [id number] [place] [address] Jun, [facility] [address] [id number] [place] [address] Jun, [facility] [address] [id number] [place] [address] Jun, [facility] [address] [id number] [place] [address] Jun, [facility] [address] [id number] [place] [address] Jun, [facility] [address] [id number] [place] [address] Jun, [facility] [address] [id number] [place] [address] Jun, [facility] [address] [id number] [place] [address] Jun, [facility] [address] [id number] [place] [address] Jun, [facility] [address] [id number] [place] [address] Jun, [facility] [address] [id number] [place] [address] Jun, [facility] [address] [id number] [place] [address] Jun, [facility] [address] [id number] [place] [address] Jun, [facility] [address] [id number] [place] [address] Jun, [facility] [address] [id number] [place] [address] Jun, [facility] [address] [id number] [place] [address] May, [facility] [address] [id number] [place] [address] May, [facility] [address] [id number] [place] [address] May, [facility] [address] [id number] [place] [address] 31 May, 2014 [facility] [address] [id number] [place] [address] May, [facility] [address] [id number] [place] [address] May, [facility] [address] [id number] [place] [address] May, [facility] [address] [id number] [place] [address] May, [facility] [address] [facility] [id number] [place] [address] May, [facility] [address] [facility] [id number] [place] [address] May, [facility] [address] [id number] [place] [address] May, [facility] [address] [id number] [place] [address] 18 May, 2014 [facility] [address] [facility] [id number] [place] [address] 18 May, 2014 [facility] [address] [id number] [place] [address] 17 May, 2014 [facility] [address] [id number] [place] [address] 16 May, 2014 [facility] [address] [id number] [place] [address] 16 May, 2014 [facility] [address] [id number] [place] [address] 15 May, 2014 [facility] [address] [id number] [place] [address] 15 May, 2014 [facility] [address] [id number] [place] [address] 12 May, 2014 [facility] [address] [id number] [place] [address] May, [facility] [address] [id number] [place] [address] May, [facility] [address] [id number] [place] [address] May, [facility] [address] [id number] [place] [address] May, [facility] [address] [id number] [place] [address] May, [facility] [address] [id number] [place] [address] May, [facility] [address] [id number] [place] [address] May, [facility] [address] [id number] [place] [address] May, [facility] [address] [id number] [place] [address] May, [facility] [address] [id number] [place] [address] May, [facility] [address] [id number] [place] [address] May, [facility] [address] [id number] [place] [address] May, [facility] [address] [id number] [place] [address] May, [facility] [address] [id number] [place] [address] May, [facility] [address] [id number] [place] [address] May, [facility] [address] [id number] [place] [address] Apr, [facility] [address] [id number] [place] [address] Apr, [facility] [address] [id number] [place] [address] Apr, [facility] [address] [id number] [place] [address] Apr, [facility] [address] [id number] [place] [address] Apr, [facility] [address] [id number] [place] [address] Apr, [facility] [address] [id number] [place] [address] Apr, [facility] [address] [id number] [place] [address] Apr, [facility] [address] [id number] [place] [address] Apr, [facility] [address] [id number] [place] [address] Apr, [facility] [address] [id number] [place] [address] Mar, [facility] [address] [id number] [place] [address] Mar, [facility] [address] [id number] [place] [address] Mar, [facility] [address] [id number] [place] [address] 31 Mar, 2014 [facility] [address] [id number] [place] [address] 30 Mar, 2014 [facility] [address] [id number] [place] [address] 30 Mar, 2014 [facility] [address] [id number] [place] [address] Mar, [facility] [address] [id number] [place] [address] 17 Mar, 2014 [facility] [address] [id number] [place] [address] 15 Mar, 2014 [facility] [address] [id number] [place] [address] 15 Mar, 2014 [facility] [address] [id number] [place] [address] 15 Mar, 2014 [facility] [address] [id number] [place] [address] 15 Mar, 2014 [facility] [address] [id number] [place] [address] 09 Mar, 2014 [facility] [address] [id number] [place] [address] Mar, 2013 [facility] [address] [id number] [place] [address] Mar, 2013 [facility] [address] [facility] [id number] [place] [address] Mar, 2013 [facility] [address] [id number] [place] [address] Mar, 2013 [facility] [address] [id number] [place] [address] Mar, 2013 [facility] [address] [facility] [id number] [place] [address] Mar, 2013 [facility] [address] [id number] [place] [address] Mar, 2013 [facility] [address] [id number] [place] [address] 05 Sep, 2013 [facility] [address] [id number] [place] [address] 05 Sep, 2013 [facility] [address] [id number] [place] [address] 04 Sep, 2013 [facility] [address] [id number] [place] [address] 04 Sep, 2013 [facility] [address] [id number] [place] [address] 03 Sep, 2013 [facility] [address] [id number] [place] [address] 03 Sep, 2013 [facility] [address] [id number] [place] [address] 02 Sep, 2013 [facility] [address] [id number] [place] [address] 02 Sep, 2013 [facility] [address] [id number] [place] [address] Sep, 2013 [facility] [address] [id number] [place] [address] 02 Sep, 2013 [facility] [address] [id number] [place] [address] Jan, [facility] [address] [id number] [place] [address] Jan, [facility] [address] [facility] [id number] [place] [address] Jan, [facility] [address] [id number] [place] [address] Jan, [facility] [address] [id number] [place] [address] Jan, [facility] [address] [id number] [place] [address] Jan, [facility] [address] [id number] [place] [address] Jan, [facility] [address] [id number] [place] [address] Jan, [facility] [address] [id number] [place] [address] Jan, [facility] [address] [id number] [place] [address] Jan, [facility] [address] [id number] [place] [address] Jan, [facility] [address] [id number] [place] [address] Jan, [facility] [address] [id number] [place] [address] Dec, [facility] [address] [id number] [place] [address] Dec, [facility] [address] [id number] [place] [address] Dec, [facility] [address] [id number] [place] [address] Dec, [facility] [address] [id number] [place] [address] Dec, [facility] [address] [facility] [id number] [place] [address] 14 Dec, 2013 [facility] [address] [facility] [id number] [place] [address] Dec, 2013 [facility] [address] [id number] [place] [address] 10 Dec, 2013 [facility] [address] [id number] [place] [address] Dec, 2013 [facility] [address] [facility] [id number] [place] [address] Dec, 2013 [facility] [address] [id number] [place] [address] Dec, 2013 [facility] [address] [id number] [place] [address] Dec, 2013 [facility] [address] [id number] [place] [address] Nov, [facility] [address] [id number] [place] [address] Nov, [facility] [address] [id number] [place] [address] Nov, [facility] [address] [id number] [place] [address] Nov, [facility] [address] [id number] [place] [id number] 17 Nov, 2013 [facility] [address] [id number] [place] [id number] Nov, [facility] [address] [id number] [place] [id number] Nov, [facility] [address] [id number] [place] [id number] Nov, [facility] [address] [id number] [place] [id number] 05 Nov, 2013 [facility] [address] [id number] [place] [id number] Nov, [facility] [address] [facility] [id number] [place] [address] Nov, [facility] [address] [facility] [id number] [place] [id number] Nov, [facility] [address] [id number] [place] [id number] Nov, [facility] [address] [id number] [place] [id number] Nov, [facility] [address] [facility] [id number] [place] [address] October, [facility] [address] [id number] [place] [id number] October, [facility] [address] [id number] [place] [id number] October, [facility] [address] [id number] [place] [address] October, [facility] [address] [id number] [place] [id number] October, [facility] [address] [id number] [place] [id number] October, [facility] [address] [id number] [place] [id number] October, [facility] [address] [id number] [place] [id number] October, [facility] [address] [id number] [place] [id number] October, [facility] [address] [id number] [place] [id number] October, [facility] [address] [id number] [place] [id number] October, [facility] [address] [id number] [place] [id number] October, [facility] [address] [id number] [place] [id number] Sep, [facility] [address] [facility] [id number] [place] [address] Sep, [facility] [address] [id number] [place] [id number] Sep, [facility] [address] [id number] [place] [address] Sep, [facility] [address] [id number] [place] [id number] Sep, [facility] [address] [id number] [place] [address] Sep, [facility] [address] [id number] [place] [id number] Aug, [facility] [address] [id number] [place] [id number] Aug, [facility] [address] [id number] [place] [id number] Aug, [facility] [address] [id number] [place] [address] Aug, [facility] [address] [id number] [place] [id number] Aug, [facility] [address] [id number] [place] [address] Aug, [facility] [address] [id number] [place] [id number] Jul, [facility] [address] [id number] [place] [address] Jul, [facility] [address] [id number] [place] [id number] Jul, [facility] [address] [id number] [place] [id number] Jul, [facility] [address] [id number] [place] [id number] Jul, [facility] [address] [id number] [place] [address] Jul, [facility] [address] [id number] [place] [id number] Jul, [facility] [address] [id number] [place] [address] Jul, [facility] [address] [id number] [place] [id number] Jul, [facility] [address] [id number] [place] [address] Jul, [facility] [address] [id number] [place] [id number] Jun, [facility] [address] [id number] [place] [id number] Jun, [facility] [address] [id number] [place] [address] Jun, [facility] [address] [id number] [place] [address] Jun, [facility] [address] [id number] [place] [address] Jun, [facility] [address] [id number] [place] [id number] Jun, [facility] [address] [id number] [place] [address] Jun, [facility] [address] [id number] [place] [id number] Jun, [facility] [address] [id number] [place] [address] May, [facility] [address] [id number] [place] [address] May, [facility] [address] [id number] [place] [address] May, [facility] [address] [id number] [place] [address] May, [facility] [address] [id number] [place] [address] May, [facility] [address] [id number] [place] [address] May, [facility] [address] [id number] [place] [address] May, [facility] [address] [id number] [place] [address] May, [facility] [address] [id number] [place] [address] Apr, [facility] [address] [id number] [place] [address] Apr, [facility] [address] [id number] [place] [address] Apr, [facility] [address] [id number] [place] [address] Apr, [facility] [address] [id number] [place] [address] Apr, [facility] [place] [facility] [address] [id number] [place] [address] Apr, [facility] [place] [facility] [address] [id number] [place] [address] Mar, [facility] [place] [facility] [address] [id number] [place] [address] Mar, [facility] [place] [facility] [address] [id number] [place] [address] Mar, [facility] [place] [facility] [id number] [place] [address] Mar, [facility] [place] [facility] [address] [id number] [place] [address] Mar, [facility] [place] [facility] [address] [id number] [place] [address] Mar, [facility] [place] [facility] [address] [id number] [place] [address] Mar, [facility] [place] [facility] [address] [id number] [place] [address] 30 Feb, 2013 [facility] [place] [facility] [address] [id number] [place] [address] 30 Feb, 2013 [facility] [place] [facility] [address] [id number] [place] [address] Feb, [facility] [place] [facility] [address] [id number] [place] [address] Feb, [facility] [place] [facility] [address] [id number] [place] [id number] Feb, [facility] [place] [facility] [address] [id number] [place] [address] Feb, [facility] [place] [facility] [address] [id number] [place] [address] Jan, [facility] [place] [facility] [address] [id number] [place] [address] Jan, [facility] [place] [facility] [address] [id number] [place] [address] Jan, [facility] [place] [facility] [address] [id number] [place] [address] Jan, [facility] [place] [facility] [address] [id number] [place] [address] Jan, [facility] [place] [facility] [address] [id number] [place] [address] Jan, [facility] [place] [facility] [address] [id number] [place] [address] Jan, [facility] [place] [facility] [address] [id number] [place] [address] Jan, [facility] [place] [facility] [address] [id number] [place] [address] Jan, [facility] [place] [facility] [address] [id number] [place] [address] Dec, 2012 [facility] [place] [facility] [address] [id number] [place] [address] Dec, 2012 [facility] [place] [facility] [address] [facility] [id number] [place] [address] Dec, 2012 [facility] [place] [facility] [address] [id number] [place] [address] 18 Dec, 2012 [facility] [place] [facility] [address] [facility] [id number] [place] [address] 17 Dec, 2012 [facility] [place] [facility] [address] [facility] [id number] [place] [address] 16 Dec, 2012 [facility] [place] [facility] [address] [facility] [id number] [place] [address] 15 Dec, 2012 [facility] [place] [facility] [address] [id number] [place] [address] 09 Dec, 2012 [facility] [place] [facility] [address] [id number] [place] [address] 08 Dec, 2012 [facility] [place] [facility] [address] [facility] [id number] [place] [address] 08 Dec, 2012 [facility] [place] [facility] [address] [id number] [place] [address] Dec, 2012 [facility] [place] [facility] [address] [id number] [place] [id number] Dec, 2012 [facility] [place] [facility] [address] [id number] [place] [address] Dec, 2012 [facility] [place] [facility] [address] [facility] [id number] [place] [address] Nov, 2012 [facility] [place] [facility] [address] [id number] [place] [address] Nov, 2012 [facility] [place] [facility] [address] [facility] [id number] [place] [address] Nov, 2012 [facility] [place] [facility] [address] [id number] [place] [address] Nov, 2012 [facility] [place] [facility] [address] [id number] [place] [address] October, [facility] [place] [facility] [address] [id number] [place] [id number] October, [facility] [place] [facility] [address] [id number] [place] [address] October, [facility] [place] [facility] [address] [id number] [place] [id number] October, [facility] [place] [facility] [address] [id number] [place] [id number] October, [facility] [place] [facility] [address] [id number] [place] [address] October, [facility] [place] [facility] [address] [id number] [place] [address] Sep, [facility] [place] [facility] [address] [id number] [place] [address] Sep, [facility] [place] [facility] [address] [id number] [place] [address] Sep, [facility] [place] [facility] [address] [id number] [place] [address] Sep, [facility] [place] [facility] [address] [id number] [place] [address] Sep, [facility] [place] [facility] [address] [id number] [place] [id number] 16 Sep, 2012 [facility] [place] [facility] [address] [id number] [place] [address] Sep, [facility] [place] [facility] [address] [id number] [place] [address] Sep, [facility] [place] [facility] [address] [id number] [place] [id number] Sep, [facility] [place] [facility] [address] [id number] [place] [address] Sep, [facility] [place] [facility] [address] [id number] [place] [address] Sep, [facility] [place] [facility] [address] [id number] [place] [address] Aug, [facility] [place] [facility] [address] [id number] [place] [id number] 25 Aug, 2012 [facility] [place] [facility] [address] [id number] [place] [address] Aug, [facility] [place] [facility] [address] [id number] [place] [address] Aug, [facility] [place] [facility] [address] [id number] [place] [address] 19 Aug, 2012 [facility] [place] [facility] [address] [id number] [place] [address] 18 Aug, 2012 [facility] [place] [facility] [address] [id number] [place] [address] 17 Aug, 2012 [facility] [place] [facility] [address] [id number] [place] [address] 15 Aug, 2012 [facility] [place] [facility] [address] [id number] [place] [address] 15 Aug, 2012 [facility] [place] [facility] [address] [id number] [place] [address] Aug, [facility] [place] [facility] [address] [id number] [place] [address] 11 Aug, 2012 [facility] [place] [facility] [address] [id number] [place] [address] 07 Aug, 2012 [facility] [place] [facility] [address] [id number] [place] [address] 27 Jul, 2012 [facility] [place] [facility] [address] [id number] [place] [address] Jul, [facility] [place] [facility] [address] [id number] [place] [address] 26 Jul, 2012 [facility] [place] [facility] [address] [id number] [place] [address] Jul, [facility] [place] [facility] [address] [id number] [place] [address] Jul, [facility] [address] [id number] [place] [address] Jul, [facility] [place] [facility] [address] [id number] [place] [address] Jul, [facility] [place] [facility] [id number] [place] [address] Jul, [facility] [place] [facility] [id number] [place] [address] Jul, [facility] [place] [facility] [address] [id number] [place] [address] Jul, [facility] [place] [facility] [id number] [place] [address] May, [facility] [place] [address] [id number] [id number] May, [facility] [place] [facility] [id number] [place] [address] May, [facility] [place] [facility] [id number] [place] [address] May, [facility] [place] [facility] [id number] [place] [address] May, [facility] [id number] [place] [address] Apr, [facility] [place] [address] [id number] [id number] Apr, [facility] [place] [facility] [id number] [place] [address] Apr, [facility] [place] [facility] [id number] [place] [address] Mar, [facility] [place] [address] [id number] [id number] Mar, [facility] [place] [facility] [id number] [place] [address] Mar, [facility] [place] [address] [id number] [id number] Feb, [facility] [place] [facility] [address] [id number] [place] [address] Feb, [facility] [place] [facility] [address] [id number] [place] [address] Feb, [facility] [address] [facility] [id number] 10 Feb, 2012 [facility] [address] [id number] [id number] 07 Feb, 2012 [facility] [address] [id number] [id number] Jan, [facility] [place] [facility] [id number] [place] [address] Jan, [facility] [address] [facility] [id number] Jan, [facility] [place] [id number] [id number] Jan, [facility] [id number] [id number] Jan, [facility] [place] [facility] [address] [id number] [place] [address] Jan, [facility] [place] [facility] [address] [id number] [place] [address] Jan, [facility] [place] [facility] [address] [id number] [place] [address] Aug, [facility] [address] [id number] [id number] Aug, [facility] [place] [facility] [address] [id number] [place] [address] Jul, [facility] [place] [facility] [id number] [place] [address] Jul, [facility] [place] [facility] [address] [id number] [place] [address] Jul, [facility] [address] [id number] [id number] Jul, [facility] [place] [facility] [address] [id number] [place] [address] Jul, [facility] [place] [address] [id number] [place] [id number] Jul, [facility] [place] [facility] [address] [id number] [place] [address] Jul, [facility] [place] [address] [facility] [id number] [place] [id number] Jul, [facility] [place] [address] [id number] [id number] Jul, [facility] [place] [address] [id number] [id number] Jul, [facility] [place] [facility] [id number] [place] [address] May, [facility] [place] [facility] [id number] [place] [address] May, [facility] [place] [facility] [id number] [place] [address] May, [facility] [place] [facility] [id number] [place] [address] Apr, [facility] [place] [facility] [id number] [place] [address] Jan, [facility] [place] [facility] [id number] [place] [address] Jan, [facility] [place] [facility] [id number] [place] [address] Dec, [facility] [place] [facility] [address] [id number] [place] [address] 15 Dec, 2009 [facility] [place] [facility] [id number] [place] [address] 16 May, 2009 [facility] [place] [facility] [id number] [place] [address] Mar, [facility] [place] [facility] [id number] [place] [address] Mar, [facility] [place] [facility] [address] [facility] [id number] [place] [address] 14 Jan, 2009 IMMUNIZATIONS No Known Immunizations [...]
--- OUTSIDE RECORDS SUMMARY | 2020-01-28 12:35 | XMS REPORT ---
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 Active 590770796 Problem History of venous thromboembolism V12.51 Active 296464351 Problem Cellulitis of unspecified part of limb L03.119 Active 456777517 Problem Gastroesophageal reflux disease without esophagitis K21.9 Active 089159638 Problem History of pulmonary embolism Z86.711 Active 730735603 Problem Pseudotumor cerebri G93.2 Active 47640104 Problem History of DVT (deep vein thrombosis) Z86.718 Active [id number] ALLERGIES No Information ENCOUNTERS Encounter Location Date Diagnosis [place] [address] [address] Apr, 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 helper (current) use of 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 Z79.01 [place] [id number] [address] Apr, halfway 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 Z 79.01 [place] [address] [address] Apr, Cellulitis of unspecified part of limb L 03.119 ; Allergic contact dermatitis due to adhesives L23.1 and Chronic pain syndrome G89.4 [place] [address] [address] Apr, [place] [address] [address] Apr, 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 Z 79.01 ; Cellulitis of unspecified part of limb L03.119 ; Chronic pain syndrome G89.4 and Anxiety F41.9 [place] [address] [address] Apr, [place] [address] [address] Apr, [place] [address] [address] Mar, [place] [address] [address] Mar, [address] [address] Mar, Sore throat J02.9 ; Gastroesophageal ref lux disease without esophagitis K21.9 ; Pseudotumor cerebri G93.2 ; Chronic pain syndrome G89.4 ; Choriocarcinoma C58 ; History of pulmonary embolism Z86.711 ; History of DVT (deep vein thrombosis) Z86.718 ; Anxiety F41.9 and Tachycardia R00.[address] [address] Feb, Anxiety 300.00 and Chronic pain 338.[address] [address] Feb, [place] [address] [address] Feb, [place] [address] [address] Jan, 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 t herapy V58.61 and Dysuria 788.[address] [address] Jan, Dysuria 788.[address] [address] Jan, Anxiety 300.00 and Chronic pain 338.29 [place] [address] [address] Jan, [place] [address] [address] Jan, [place] [address] [address] Jan, [place] [address] [address] Dec, Weakness 780.79 [place] [address] [address] Dec, 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 t herapy V58.61 [place] [address] [address] Dec, Palpitations 785.1 ; Tremor 781.0 ; Weak ness 780.79 ; 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 therapy V58.61 and Yeast vaginitis 112.1 [place] [address] [address] Dec, [place] [address] [address] Dec, Cervicalgia 723.1 ; Tachycardia 785.0 ; Pseudotumor cerebri 348.2 and History of venous thromboembolism V12.51 [place] [address] [address] Nov, [place] [address] [address] Nov, [place] [address] [address] Nov, Tachycardia 785.0 ; Pseudotumor cerebri 348.2 ; Anxiety 300.00 and History of venous thromboembolism V12.51 [place] [address] [address] Nov, [place] [address] [address] Nov, [facility] [address] [id number] [place] [address] 16 Nov, 2014 [facility] [place] [facility] [address] [place] [id number] [place] [address] 12 Nov, 2014 [facility] [place] [facility] [address] [id number] [place] [address] Nov, [facility] [place] [facility] [address] [place] [id number] [place] [address] 08 Nov, 2014 [facility] [place] [facility] [address] [id number] [place] [address] Nov, [facility] [place] [facility] [address] [place] [id number] [place] [address] October, [facility] [place] [facility] [address] [place] [id number] [place] [address] October, [facility] [address] [place] [id number] [place] [address] October, Pain in thoracic spine 724.1 and Tachyca rdia 785.0 [facility] [address] [place] [id number] [place] [address] October, [facility] [address] [place] [id number] [place] [address] October, [facility] [place] [facility] [address] [place] [id number] [place] [address] 14 Sep, 2014 [facility] [place] [facility] [address] [place] [id number] [place] [address] Sep, [facility] [place] [facility] [address] [place] [id number] [place] [address] Aug, [facility] [place] [facility] [address] [place] [id number] [place] [address] Aug, [facility] [place] [facility] [address] [id number] [place] [address] Aug, [facility] [place] [facility] [address] [place] [id number] [place] [address] Aug, [facility] [place] [facility] [address] [id number] [place] [address] Aug, 2014 [facility] [place] [facility] [address] [id number] [place] [address] Aug, 2014 [facility] [place] [facility] [address] [id number] [place] [address] Aug, 2014 [facility] [place] [facility] [address] [id number] [place] [address] Aug, 2014 [facility] [place] [facility] [address] [id number] [place] [address] Aug, 2014 [facility] [place] [facility] [address] [id number] [place] [address] Aug, 2014 [facility] [place] [facility] [address] [id number] [place] [address] Aug, 2014 [facility] [place] [facility] [address] [id number] [place] [address] Aug, 2014 [facility] [place] [facility] [address] [id number] [place] [address] Jul, 2014 [facility] [place] [facility] [address] [id number] [place] [address] Jul, 2014 [facility] [place] [facility] [address] [id number] [place] [address] Jul, 2014 [facility] [place] [facility] [address] [id number] [place] [address] Jul, 2014 [facility] [place] [facility] [address] [id number] [place] [address] Jul, 2014 [facility] [place] [facility] [address] [id number] [place] [address] Jul, 2014 [facility] [place] [facility] [address] [id number] [place] [address] Jul, 2014 [facility] [place] [facility] [address] [id number] [place] [address] Jul, 2014 [facility] [place] [facility] [address] [id number] [place] [address] 20 Jul, 2014 [facility] [place] [facility] [address] [id number] [place] [address] 20 Jul, 2014 [facility] [place] [facility] [address] [id number] [place] [address] 19 Jul, 2014 [facility] [place] [facility] [address] [id number] [place] [address] 19 Jul, 2014 [facility] [place] [facility] [address] [id number] [place] [address] 17 Jul, 2014 [facility] [place] [facility] [address] [id number] [place] [address] 17 Jul, 2014 [facility] [place] [facility] [address] [id number] [place] [address] 16 Jul, 2014 [facility] [place] [facility] [address] [id number] [place] [address] 16 Jul, 2014 [facility] [place] [facility] [address] [id number] [place] [address] 16 Jul, 2014 [facility] [place] [facility] [address] [id number] [place] [address] 16 Jul, 2014 [facility] [place] [facility] [address] [id number] [place] [address] 13 Jul, 2014 [facility] [place] [facility] [address] [id number] [place] [address] 13 Jul, 2014 [facility] [place] [facility] [address] [id number] [place] [address] 13 Jul, 2014 [facility] [place] [facility] [address] [id number] [place] [address] 13 Jul, 2014 [facility] [place] [facility] [address] [id number] [place] [address] 12 Jul, 2014 [facility] [place] [facility] [address] [id number] [place] [address] 12 Jul, 2014 [facility] [place] [facility] [address] [id number] [place] [address] Jul, [facility] [place] [facility] [address] [facility] [id number] [place] [address] Jul, [facility] [place] [facility] [address] [id number] [place] [address] Jul, [facility] [place] [facility] [address] [id number] [place] [address] Jul, [facility] [place] [facility] [address] [id number] [place] [address] Jul, [facility] [place] [facility] [address] [id number] [place] [address] Jul, [facility] [place] [facility] [address] [id number] [place] [address] Jun, [facility] [place] [facility] [address] [id number] [place] [address] Jun, [facility] [place] [facility] [address] [id number] [place] [address] Jun, [facility] [place] [facility] [address] [id number] [place] [address] Jun, [facility] [place] [facility] [address] [id number] [place] [address] Jun, [facility] [place] [facility] [address] [id number] [place] [address] Jun, [facility] [place] [facility] [address] [id number] [place] [address] Jun, [facility] [place] [facility] [address] [id number] [place] [address] Jun, [facility] [place] [facility] [address] [id number] [place] [address] Jun, [facility] [place] [facility] [address] [id number] [place] [address] Jun, [facility] [place] [facility] [address] [id number] [place] [address] Jun, [facility] [place] [facility] [address] [id number] [place] [address] Jun, [facility] [place] [facility] [address] [id number] [place] [address] Jun, [facility] [place] [facility] [address] [id number] [place] [address] Jun, [facility] [place] [facility] [address] [id number] [place] [address] Jun, [facility] [place] [facility] [address] [id number] [place] [address] Jun, [facility] [place] [facility] [address] [id number] [place] [address] Jun, [facility] [place] [facility] [address] [id number] [place] [address] Jun, [facility] [place] [facility] [address] [id number] [place] [address] Jun, [facility] [place] [facility] [address] [id number] [place] [address] Jun, [facility] [place] [facility] [address] [id number] [place] [address] May, [facility] [place] [facility] [address] [id number] [place] [address] May, [facility] [place] [facility] [address] [id number] [place] [address] May, [facility] [place] [facility] [address] [id number] [place] [address] May, [facility] [place] [facility] [address] [id number] [place] [address] May, [facility] [place] [facility] [address] [id number] [place] [address] May, [facility] [place] [facility] [address] [id number] [place] [address] May, [facility] [place] [facility] [address] [id number] [place] [address] May, [facility] [place] [facility] [address] [facility] [id number] [place] [address] May, [facility] [place] [facility] [address] [id number] [place] [address] May, [facility] [place] [facility] [address] [id number] [place] [address] May, [facility] [place] [facility] [address] [id number] [place] [address] May, [facility] [place] [facility] [address] [id number] [place] [address] 18 May, 2014 [facility] [place] [facility] [address] [id number] [place] [address] 17 May, 2014 [facility] [place] [facility] [address] [id number] [place] [address] 16 May, 2014 [facility] [place] [facility] [address] [id number] [place] [address] 16 May, 2014 [facility] [place] [facility] [address] [id number] [place] [address] 15 May, 2014 [facility] [place] [facility] [address] [id number] [place] [address] 15 May, 2014 [facility] [place] [facility] [address] [id number] [place] [address] 12 May, 2014 [facility] [place] [facility] [address] [id number] [place] [address] May, [facility] [place] [facility] [address] [id number] [place] [address] May, [facility] [place] [facility] [address] [id number] [place] [address] May, [facility] [place] [facility] [address] [id number] [place] [address] May, [facility] [place] [facility] [address] [id number] [place] [address] May, [facility] [place] [facility] [address] [id number] [place] [address] May, [facility] [place] [facility] [address] [id number] [place] [address] May, [facility] [place] [facility] [address] [id number] [place] [address] May, [facility] [place] [facility] [address] [id number] [place] [address] May, [facility] [place] [facility] [address] [id number] [place] [address] May, [facility] [place] [facility] [address] [id number] [place] [address] May, [facility] [place] [facility] [address] [id number] [place] [address] May, [facility] [place] [facility] [address] [id number] [place] [address] May, [facility] [place] [facility] [address] [id number] [place] [address] May, [facility] [place] [facility] [address] [id number] [place] [address] May, [facility] [place] [facility] [address] [id number] [place] [address] Apr, [facility] [place] [facility] [address] [id number] [place] [address] Apr, [facility] [place] [facility] [address] [id number] [place] [address] Apr, [facility] [place] [facility] [address] [id number] [place] [address] Apr, [facility] [place] [facility] [address] [id number] [place] [address] Apr, [facility] [place] [facility] [address] [id number] [place] [address] Apr, [facility] [place] [facility] [address] [id number] [place] [address] Apr, [facility] [place] [facility] [address] [id number] [place] [address] Apr, [facility] [place] [facility] [address] [id number] [place] [address] Apr, [facility] [place] [facility] [address] [id number] [place] [address] Apr, [facility] [place] [facility] [address] [id number] [place] [address] Mar, [facility] [place] [facility] [address] [id number] [place] [address] Mar, [facility] [place] [facility] [address] [id number] [place] [address] Mar, [facility] [place] [facility] [address] [id number] [place] [address] Mar, [facility] [place] [facility] [address] [id number] [place] [address] Mar, [facility] [place] [facility] [address] [id number] [place] [address] 30 Mar, 2014 [facility] [place] [facility] [address] [id number] [place] [address] Mar, [facility] [place] [facility] [address] [id number] [place] [address] 17 Mar, 2013 [facility] [place] [facility] [address] [id number] [place] [address] 15 Mar, 2014 [facility] [place] [facility] [address] [id number] [place] [address] 15 Mar, 2014 [facility] [place] [facility] [address] [id number] [place] [address] 15 Mar, 2014 [facility] [place] [facility] [address] [id number] [place] [address] 15 Mar, 2014 [facility] [place] [facility] [address] [id number] [place] [address] 09 Mar, 2014 [facility] [place] [facility] [address] [id number] [place] [address] Mar, 2013 [facility] [place] [facility] [address] [id number] [place] [address] Mar, 2013 [facility] [place] [facility] [address] [id number] [place] [address] Mar, 2013 [facility] [place] [facility] [address] [id number] [place] [address] Mar, 2013 [facility] [place] [facility] [address] [id number] [place] [address] Mar, 2013 [facility] [place] [facility] [address] [id number] [place] [address] Mar, 2013 [facility] [place] [facility] [address] [id number] [place] [address] Mar, 2013 [facility] [place] [facility] [address] [id number] [place] [address] 05 Sep, 2013 [facility] [place] [facility] [address] [id number] [place] [address] 05 Sep, 2013 [facility] [place] [facility] [address] [id number] [place] [address] 04 Sep, 2013 [facility] [place] [facility] [address] [id number] [place] [address] 04 Sep, 2013 [facility] [place] [facility] [address] [id number] [place] [address] 03 Sep, 2013 [facility] [place] [facility] [address] [id number] [place] [address] 03 Sep, 2013 [facility] [place] [facility] [address] [id number] [place] [address] Sep, 2013 [facility] [place] [facility] [address] [id number] [place] [address] Sep, 2013 [facility] [place] [facility] [address] [id number] [place] [address] Sep, 2013 [facility] [place] [facility] [address] [id number] [place] [address] Sep, 2013 [facility] [place] [facility] [address] [id number] [place] [address] Jan, [facility] [place] [facility] [address] [id number] [place] [address] Jan, [facility] [place] [facility] [address] [facility] [id number] [place] [address] Jan, [facility] [place] [facility] [address] [facility] [id number] [place] [address] Jan, [facility] [place] [facility] [address] [facility] [id number] [place] [address] Jan, [facility] [place] [facility] [address] [id number] [place] [address] Jan, [facility] [place] [facility] [address] [facility] [id number] [place] [address] Jan, [facility] [place] [facility] [address] [id number] [place] [address] Jan, [facility] [place] [facility] [address] [id number] [place] [address] Jan, [facility] [place] [facility] [address] [id number] [place] [address] Jan, [facility] [address] [facility] [id number] [place] [address] Jan, [facility] [address] [id number] [place] [address] Jan, [facility] [address] [id number] [place] [address] Dec, [facility] [address] [id number] [place] [address] Dec, [facility] [address] [id number] [place] [address] Dec, [facility] [address] [facility] [id number] [place] [address] Dec, [facility] [address] [id number] [place] [address] Dec, [facility] [address] [facility] [id number] [place] [address] 14 Dec, 2013 [facility] [address] [facility] [id number] [place] [address] Dec, 2013 [facility] [address] [facility] [id number] [place] [address] Dec, 2013 [facility] [address] [id number] [place] [address] Dec, 2013 [facility] [address] [facility] [id number] [place] [address] Dec, 2013 [facility] [address] [id number] [place] [address] Dec, 2013 [facility] [address] [id number] [place] [address] Dec, 2013 [facility] [address] [id number] [place] [address] Nov, 2013 [facility] [address] [id number] [place] [address] Nov, [facility] [address] [id number] [place] [address] Nov, [facility] [address] [id number] [place] [address] Nov, [facility] [address] [id number] [place] [address] Nov, [facility] [address] [id number] [place] [address] Nov, [facility] [address] [id number] [place] [address] Nov, [facility] [address] [id number] [place] [address] Nov, [facility] [address] [id number] [place] [address] Nov, [facility] [address] [id number] [place] [address] Nov, [facility] [address] [id number] [place] [address] Nov, [facility] [address] [id number] [place] [address] Nov, [facility] [address] [id number] [place] [address] Nov, [facility] [address] [id number] [place] [address] Nov, [facility] [address] [id number] [place] [address] October, [facility] [address] [id number] [place] [address] October, [facility] [address] [id number] [place] [address] October, [facility] [address] [id number] [place] [address] October, [facility] [address] [id number] [place] [address] October, [facility] [address] [id number] [place] [address] October, [facility] [address] [id number] [place] [place] [address] October, [facility] [place] [facility] [address] [id number] [place] [address] October, [facility] [place] [facility] [address] [id number] [place] [address] October, [facility] [place] [facility] [address] [id number] [place] [address] October, [facility] [place] [facility] [address] [id number] [place] [address] October, [facility] [place] [facility] [address] [id number] [place] [address] October, [facility] [place] [facility] [address] [id number] [place] [address] Sep, [facility] [place] [facility] [address] [id number] [place] [address] Sep, [facility] [place] [facility] [address] [facility] [id number] [place] [address] Sep, [facility] [place] [facility] [address] [id number] [place] [address] Sep, [facility] [place] [facility] [address] [id number] [place] [address] Sep, [facility] [place] [facility] [address] [facility] [id number] [place] [address] Sep, [facility] [place] [facility] [address] [id number] [place] [address] Aug, [facility] [place] [facility] [address] [id number] [place] [address] Aug, [facility] [place] [facility] [address] [id number] [place] [address] Aug, [facility] [place] [facility] [address] [facility] [id number] [place] [address] Aug, [facility] [place] [facility] [address] [id number] [place] [address] Aug, [facility] [place] [facility] [address] [id number] [place] [address] Aug, [facility] [place] [facility] [address] [id number] [place] [address] Jul, [facility] [place] [facility] [address] [facility] [id number] [place] [address] Jul, [facility] [place] [facility] [address] [id number] [place] [address] Jul, [facility] [place] [facility] [address] [id number] [place] [address] Jul, [facility] [place] [facility] [address] [id number] [place] [address] Jul, [facility] [place] [facility] [address] [facility] [id number] [place] [address] Jul, [facility] [place] [facility] [address] [id number] [place] [address] Jul, [facility] [place] [facility] [address] [id number] [place] [address] Jul, [facility] [place] [facility] [address] [id number] [place] [address] Jul, [facility] [place] [facility] [address] [id number] [place] [address] Jul, [facility] [place] [facility] [address] [id number] [place] [address] Jun, [facility] [place] [facility] [address] [id number] [place] [address] Jun, [facility] [place] [facility] [address] [id number] [place] [address] Jun, [facility] [place] [facility] [address] [id number] [place] [address] Jun, [facility] [place] [facility] [address] [id number] [place] [address] Jun, [facility] [place] [facility] [address] [id number] [place] [address] Jun, [facility] [place] [facility] [address] [id number] [place] [address] Jun, [facility] [place] [facility] [address] [id number] [place] [address] Jun, [facility] [place] [facility] [address] [id number] [place] [address] May, [facility] [place] [facility] [address] [id number] [place] [address] May, [facility] [place] [facility] [address] [id number] [place] [address] May, [facility] [place] [facility] [address] [id number] [place] [address] May, 2012 [facility] [place] [facility] [address] [id number] [place] [address] May, [facility] [place] [facility] [address] [id number] [place] [address] May, [facility] [place] [facility] [address] [id number] [place] [address] May, [facility] [place] [facility] [address] [id number] [place] [address] May, [facility] [place] [facility] [address] [id number] [place] [address] Apr, [facility] [place] [facility] [address] [id number] [place] [address] Apr, [facility] [place] [facility] [address] [id number] [place] [address] Apr, [facility] [place] [facility] [address] [id number] [place] [address] Apr, [facility] [place] [facility] [address] [id number] [place] [address] Apr, [facility] [place] [facility] [address] [id number] [place] [address] Apr, [facility] [place] [facility] [address] [id number] [place] [address] Mar, [facility] [place] [facility] [address] [id number] [place] [address] Mar, [facility] [place] [facility] [address] [id number] [place] [address] Mar, [facility] [place] [facility] [address] [id number] [place] [address] Mar, [facility] [place] [facility] [address] [id number] [place] [address] Mar, [facility] [place] [facility] [address] [id number] [place] [address] Mar, [facility] [place] [facility] [address] [id number] [place] [address] Mar, [facility] [place] [facility] [address] [id number] [place] [address] Feb, [facility] [place] [facility] [address] [id number] [place] [address] 30 Feb, 2012 [facility] [place] [facility] [address] [id number] [place] [address] Feb, [facility] [place] [facility] [address] [facility] [id number] [place] [address] Feb, 2012 [facility] [place] [facility] [address] [id number] [place] [address] Feb, [facility] [place] [facility] [address] [id number] [place] [address] Feb, [facility] [place] [facility] [address] [id number] [place] [address] Jan, [facility] [place] [facility] [address] [id number] [place] [address] Jan, [facility] [place] [facility] [address] [id number] [place] [address] Jan, [facility] [place] [facility] [address] [id number] [place] [address] Jan, [facility] [place] [facility] [address] [id number] [place] [address] Jan, [facility] [place] [facility] [address] [id number] [place] [address] Jan, [facility] [place] [facility] [address] [id number] [place] [address] Jan, [facility] [place] [facility] [address] [id number] [place] [address] Jan, [facility] [place] [facility] [address] [id number] [place] [address] Jan, [facility] [place] [facility] [address] [id number] [place] [address] 29 Dec, 2012 [facility] [place] [facility] [address] [id number] [place] [address] Dec, 2012 [facility] [place] [facility] [address] [facility] [id number] [place] [address] Dec, 2012 [facility] [place] [facility] [address] [id number] [place] [address] 18 Dec, 2012 [facility] [place] [facility] [address] [id number] [place] [address] 17 Dec, 2012 [facility] [place] [facility] [address] [facility] [id number] [place] [address] 16 Dec, 2012 [facility] [place] [facility] [address] [id number] [place] [address] 15 Dec, 2012 [facility] [place] [facility] [address] [id number] [place] [address] 09 Dec, 2012 [facility] [place] [facility] [address] [id number] [place] [address] Dec, 2012 [facility] [place] [facility] [address] [id number] [place] [address] Dec, 2012 [facility] [place] [facility] [address] [id number] [place] [address] Dec, [facility] [place] [facility] [address] [id number] [place] [address] Dec, 2012 [facility] [place] [facility] [address] [id number] [place] [address] Dec, 2012 [facility] [place] [facility] [address] [id number] [place] [address] Nov, [facility] [place] [facility] [address] [id number] [place] [address] Nov, 2012 [facility] [place] [facility] [address] [id number] [place] [address] Nov, [facility] [place] [facility] [address] [id number] [place] [address] Nov, [facility] [place] [facility] [address] [facility] [id number] [place] [address] October, [facility] [place] [facility] [address] [id number] [place] [address] October, [facility] [place] [facility] [address] [id number] [place] [address] October, [facility] [place] [facility] [address] [id number] [place] [address] October, [facility] [place] [facility] [address] [id number] [place] [address] October, [facility] [place] [facility] [address] [id number] [place] [address] October, [facility] [place] [facility] [address] [id number] [place] [address] Sep, [facility] [place] [facility] [address] [id number] [place] [address] Sep, [facility] [place] [facility] [address] [id number] [place] [address] Sep, [facility] [place] [facility] [address] [id number] [place] [address] Sep, [facility] [place] [facility] [address] [id number] [place] [address] Sep, [facility] [place] [facility] [address] [id number] [place] [address] 16 Sep, 2012 [facility] [place] [facility] [address] [id number] [place] [address] Sep, [facility] [place] [facility] [address] [id number] [place] [address] Sep, [facility] [place] [facility] [address] [id number] [place] [address] Sep, [facility] [place] [facility] [address] [id number] [place] [address] Sep, [facility] [place] [facility] [address] [id number] [place] [address] Sep, [facility] [address] [id number] [place] [address] Aug, [facility] [place] [facility] [address] [id number] [place] [address] 25 Aug, 2012 [facility] [place] [facility] [address] [id number] [place] [address] Aug, [facility] [place] [facility] [address] [id number] [place] [address] Aug, [facility] [place] [facility] [address] [id number] [place] [address] 19 Aug, 2012 [facility] [address] [id number] [place] [address] 18 Aug, 2012 [facility] [place] [facility] [address] [id number] [place] [address] 17 Aug, 2012 [facility] [address] [id number] [place] [address] 15 Aug, 2012 [facility] [place] [facility] [address] [id number] [place] [address] 15 Aug, 2012 [facility] [place] [facility] [address] [id number] [place] [address] Aug, [facility] [place] [facility] [address] [id number] [place] [address] Aug, [facility] [place] [facility] [address] [id number] [place] [address] 07 Aug, 2012 [facility] [place] [facility] [address] [id number] [place] [address] 27 Jul, 2012 [facility] [place] [facility] [address] [id number] [place] [address] Jul, [facility] [place] [facility] [address] [id number] [place] [address] 26 Jul, 2012 [facility] [place] [facility] [address] [id number] [place] [address] 22 Jul, 2012 [facility] [place] [facility] [address] [id number] [place] [address] Jul, 2012 [facility] [address] [id number] [place] [address] Jul, 2012 [facility] [place] [facility] [address] [id number] [place] [address] Jul, 2012 [facility] [place] [facility] [address] [id number] [place] [address] Jul, [facility] [place] [facility] [address] [id number] [place] [address] Jul, [facility] [place] [facility] [address] [id number] [place] [address] Jul, [facility] [place] [facility] [address] [id number] [place] [address] May, [facility] [id number] [address] May, [facility] [place] [facility] [id number] [place] [address] May, [facility] [place] [facility] [address] [id number] [place] [address] May, [facility] [place] [facility] [id number] [place] [address] May, [facility] [place] [facility] [id number] [place] [address] Apr, [facility] [place] [address] [id number] [id number] Apr, [facility] [place] [facility] [id number] [place] [address] Apr, [facility] [place] [facility] [id number] [place] [address] Mar, [facility] [id number] [id number] Mar, [facility] [place] [facility] [id number] [place] [address] Mar, [facility] [place] [id number] [id number] 13 Feb, 2012 [facility] [place] [facility] [address] [id number] [place] [address] Feb, [facility] [place] [facility] [address] [id number] [place] [address] Feb, [facility] [address] [id number] [id number] 10 Feb, 2012 [facility] [address] [id number] [id number] 07 Feb, 2012 [facility] [address] [id number] [id number] Jan, [facility] [place] [facility] [id number] [place] [address] Jan, [facility] [address] [id number] [id number] Jan, [facility] [id number] [id number] Jan, [facility] [address] [id number] [id number] Jan, [facility] [place] [facility] [address] [id number] [place] [address] Jan, [facility] [place] [facility] [address] [id number] [place] [address] Jan, [facility] [place] [facility] [id number] [place] [address] Aug, [facility] [address] [facility] [id number] Aug, [facility] [place] [facility] [address] [id number] [place] [address] Jul, [facility] [place] [facility] [id number] [place] [address] Jul, [facility] [place] [facility] [id number] [place] [address] Jul, [facility] [address] [id number] [id number] Jul, [facility] [place] [facility] [address] [id number] [place] [address] Jul, [facility] [address] [id number] [id number] Jul, [facility] [place] [facility] [id number] [place] [address] Jul, [facility] [address] [facility] [id number] Jul, [facility] [address] [facility] [id number] Jul, [facility] [address] [facility] [id number] Jul, [facility] [place] [facility] [id number] [place] [address] May, [facility] [place] [facility] [id number] [place] [address] May, [facility] [place] [facility] [id number] [place] [address] May, [facility] [place] [facility] [id number] [place] [address] Apr, [facility] [place] [facility] [id number] [place] [address] Jan, [facility] [place] [facility] [id number] [place] [address] Jan, [facility] [place] [facility] [id number] [place] [address] Dec, [facility] [place] [facility] [address] [id number] [place] [address] Dec, [facility] [place] [facility] [id number] [place] [address] 16 May, 2009 [facility] [place] [facility] [id number] [place] [address] Mar, [facility] [place] [facility] [id number] [place] [address] Mar, [facility] [place] [facility] [address] [facility] [id number] [place] [address] 14 Jan, 2009 IMMUNIZATIONS No Known Immunizations SOCIAL HISTORY Never Assessed REASON FOR VISIT PLAN OF CARE VITAL SIGNS MEDICATIONS Unknown Medications RESULTS No Results PROCEDURES Procedure Date Ordered Result Body Site PROTHROMBIN TIME December 30, 2013 INSTRUCTIONS MEDICATIONS ADMINISTERED No Known Medications [...]
--- OUTSIDE RECORDS SUMMARY | 2020-01-28 12:35 | XMS REPORT ---
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 Active 718271585 Problem History of venous thromboembolism V12.51 Active 223816409 Problem Cellulitis of unspecified part of limb L03.119 Active 408079674 Problem Gastroesophageal reflux disease without esophagitis K21.9 Active 533968311 Problem History of pulmonary embolism Z86.711 Active 742175529 Problem Pseudotumor cerebri G93.2 Active 90170197 Problem History of DVT (deep vein thrombosis) Z86.718 Active [id number] ALLERGIES No Information ENCOUNTERS Encounter Location Date Diagnosis [place] [address] [address] Apr, terminal 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 (current) use of 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 Z79.01 [place] [address] [address] Apr, [facility] 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 Z 79.01 [place] [address] [address] Apr, Cellulitis of unspecified part of limb L 03.119 ; Allergic contact dermatitis due to adhesives L23.1 and Chronic pain syndrome G89.4 [place] [address] [address] Apr, [place] [address] [address] Apr, 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 Z 79.01 ; Cellulitis of unspecified part of limb L03.119 ; Chronic pain syndrome G89.4 and Anxiety F41.9 [place] [address] [address] Apr, [place] [address] [address] Apr, [place] [address] [address] Mar, [place] [address] [address] Mar, [address] [address] Mar, Sore throat J02.9 ; Gastroesophageal ref lux disease without esophagitis K21.9 ; Pseudotumor cerebri G93.2 ; Chronic pain syndrome G89.4 ; Choriocarcinoma C58 ; History of pulmonary embolism Z86.711 ; History of DVT (deep vein thrombosis) Z86.718 ; Anxiety F41.9 and Tachycardia R00.[address] [address] Feb, Anxiety 300.00 and Chronic pain 338.[address] [address] Feb, [place] [address] [address] Feb, [place] [address] [address] Jan, 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 t herapy V58.61 and Dysuria 788.[address] [address] Jan, Dysuria 788.[address] [address] Jan, Anxiety 300.00 and Chronic pain 338.29 [place] [address] [address] Jan, [place] [address] [address] Jan, [place] [address] [address] Jan, [place] [address] [address] Dec, Weakness 780.79 [place] [address] [address] Dec, 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 t herapy V58.61 [place] [address] [address] Dec, Palpitations 785.1 ; Tremor 781.0 ; Weak ness 780.79 ; 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 therapy V58.61 and Yeast vaginitis 112.1 [place] [address] [address] Dec, [place] [address] [address] Dec, Cervicalgia 723.1 ; Tachycardia 785.0 ; Pseudotumor cerebri 348.2 and History of venous thromboembolism V12.51 [place] [address] [address] Nov, [place] [address] [address] Nov, [place] [address] [address] Nov, Tachycardia 785.0 ; Pseudotumor cerebri 348.2 ; Anxiety 300.00 and History of venous thromboembolism V12.51 [place] [address] [address] Nov, [place] [address] [address] Nov, [facility] [address] [id number] [place] [address] 16 Nov, 2014 [facility] [address] [place] [id number] [place] [address] 12 Nov, 2014 [facility] [address] [id number] [place] [address] Nov, [facility] [address] [place] [id number] [place] [address] 08 Nov, 2014 [facility] [address] [id number] [place] [address] Nov, [facility] [address] [place] [id number] [place] [address] October, [facility] [address] [place] [id number] [place] [address] October, [facility] [address] [place] [address] [id number] [place] [address] October, Pain in thoracic spine 724.1 and Tachyca rdia 785.0 [facility] [address] [place] [id number] [place] [address] October, [facility] [address] [place] [id number] [place] [address] October, [facility] [address] [place] [address] [id number] [place] [address] 14 Sep, 2014 [facility] [address] [place] [address] [id number] [place] [address] Sep, [facility] [address] [place] [address] [id number] [place] [address] Aug, [facility] [address] [place] [address] [id number] [place] [address] Aug, [facility] [address] [id number] [place] [address] Aug, [facility] [address] [place] [id number] [place] [address] Aug, [facility] [address] [id number] [place] [address] Aug, 2014 [facility] [address] [id number] [place] [address] Aug, 2014 [facility] [address] [id number] [place] [address] Aug, 2014 [facility] [address] [id number] [place] [address] Aug, 2014 [facility] [address] [id number] [place] [address] Aug, 2014 [facility] [address] [id number] [place] [address] Aug, 2014 [facility] [address] [id number] [place] [address] Aug, 2014 [facility] [address] [id number] [place] [address] Aug, 2014 [facility] [address] [id number] [place] [address] Jul, 2014 [facility] [address] [id number] [place] [address] Jul, 2014 [facility] [address] [id number] [place] [address] Jul, 2014 [facility] [address] [id number] [place] [address] Jul, 2014 [facility] [address] [id number] [place] [address] Jul, 2014 [facility] [address] [id number] [place] [address] Jul, 2014 [facility] [address] [id number] [place] [address] Jul, 2014 [facility] [address] [id number] [place] [address] Jul, 2014 [facility] [address] [id number] [place] [address] 20 Jul, 2014 [facility] [address] [id number] [place] [address] 20 Jul, 2014 [facility] [address] [id number] [place] [address] 19 Jul, 2014 [facility] [address] [id number] [place] [address] 19 Jul, 2014 [facility] [address] [id number] [place] [address] 17 Jul, 2014 [facility] [address] [id number] [place] [address] 17 Jul, 2014 [facility] [address] [id number] [place] [address] 16 Jul, 2014 [facility] [address] [id number] [place] [address] 16 Jul, 2014 [facility] [address] [id number] [place] [address] 16 Jul, 2014 [facility] [address] [id number] [place] [address] 16 Jul, 2014 [facility] [address] [id number] [place] [address] 13 Jul, 2014 [facility] [address] [id number] [place] [address] 13 Jul, 2014 [facility] [address] [id number] [place] [address] 13 Jul, 2014 [facility] [address] [id number] [place] [address] 13 Jul, 2014 [facility] [address] [id number] [place] [address] 12 Jul, 2014 [facility] [address] [id number] [place] [address] 12 Jul, 2014 [facility] [address] [id number] [place] [address] Jul, [facility] [address] [facility] [id number] [place] [address] Jul, [facility] [address] [id number] [place] [address] Jul, [facility] [address] [id number] [place] [address] Jul, [facility] [address] [id number] [place] [address] Jul, [facility] [address] [id number] [place] [address] Jul, [facility] [address] [id number] [place] [address] Jun, [facility] [address] [id number] [place] [address] Jun, [facility] [address] [id number] [place] [address] Jun, [facility] [address] [id number] [place] [address] Jun, [facility] [address] [id number] [place] [address] Jun, [facility] [address] [id number] [place] [address] Jun, [facility] [address] [id number] [place] [address] Jun, [facility] [address] [id number] [place] [address] Jun, [facility] [address] [id number] [place] [address] Jun, [facility] [address] [id number] [place] [address] Jun, [facility] [address] [id number] [place] [address] Jun, [facility] [address] [id number] [place] [address] Jun, [facility] [address] [id number] [place] [address] Jun, [facility] [address] [id number] [place] [address] Jun, [facility] [address] [id number] [place] [address] Jun, [facility] [address] [id number] [place] [address] Jun, [facility] [address] [id number] [place] [address] Jun, [facility] [address] [id number] [place] [address] Jun, [facility] [address] [id number] [place] [address] Jun, [facility] [address] [id number] [place] [address] Jun, [facility] [address] [id number] [place] [address] May, [facility] [address] [id number] [place] [address] May, [facility] [address] [id number] [place] [address] May, [facility] [address] [id number] [place] [address] May, [facility] [address] [id number] [place] [address] May, [facility] [address] [id number] [place] [address] May, [facility] [address] [id number] [place] [address] May, [facility] [address] [id number] [place] [address] May, [facility] [address] [facility] [id number] [place] [address] May, [facility] [address] [id number] [place] [address] May, [facility] [address] [id number] [place] [address] May, [facility] [address] [id number] [place] [address] May, [facility] [address] [id number] [place] [address] 18 May, 2014 [facility] [address] [id number] [place] [address] 17 May, 2014 [facility] [address] [id number] [place] [address] 16 May, 2014 [facility] [address] [id number] [place] [address] 16 May, 2014 [facility] [address] [id number] [place] [address] 15 May, 2014 [facility] [address] [id number] [place] [address] 15 May, 2014 [facility] [address] [id number] [place] [address] 12 May, 2014 [facility] [address] [id number] [place] [address] May, [facility] [address] [id number] [place] [address] May, [facility] [address] [id number] [place] [address] May, [facility] [address] [id number] [place] [address] May, [facility] [address] [id number] [place] [address] May, [facility] [address] [id number] [place] [address] May, [facility] [address] [id number] [place] [address] May, [facility] [address] [id number] [place] [address] May, [facility] [address] [id number] [place] [address] May, [facility] [address] [id number] [place] [address] May, [facility] [address] [id number] [place] [address] May, [facility] [address] [id number] [place] [address] May, [facility] [address] [id number] [place] [address] May, [facility] [address] [id number] [place] [address] May, [facility] [address] [id number] [place] [address] May, [facility] [address] [id number] [place] [address] Apr, [facility] [address] [id number] [place] [address] Apr, [facility] [address] [id number] [place] [address] Apr, [facility] [address] [id number] [place] [address] Apr, [facility] [address] [id number] [place] [address] Apr, [facility] [address] [id number] [place] [address] Apr, [facility] [address] [id number] [place] [address] Apr, [facility] [address] [id number] [place] [address] Apr, [facility] [address] [id number] [place] [address] Apr, [facility] [address] [id number] [place] [address] Apr, [facility] [address] [id number] [place] [address] Mar, [facility] [address] [id number] [place] [address] Mar, [facility] [address] [id number] [place] [address] Mar, [facility] [address] [id number] [place] [address] Mar, [facility] [address] [id number] [place] [address] Mar, [facility] [address] [id number] [place] [address] 30 Mar, 2014 [facility] [address] [id number] [place] [address] Mar, [facility] [address] [id number] [place] [address] 17 Mar, 2013 [facility] [address] [id number] [place] [address] 15 Mar, 2014 [facility] [address] [id number] [place] [address] 15 Mar, 2014 [facility] [address] [id number] [place] [address] 15 Mar, 2014 [facility] [address] [id number] [place] [address] 15 Mar, 2014 [facility] [address] [id number] [place] [address] 09 Mar, 2014 [facility] [address] [id number] [place] [address] Mar, 2013 [facility] [address] [id number] [place] [address] Mar, 2013 [facility] [address] [id number] [place] [address] Mar, 2013 [facility] [address] [id number] [place] [address] Mar, 2013 [facility] [address] [id number] [place] [address] Mar, 2013 [facility] [address] [id number] [place] [address] Mar, 2013 [facility] [address] [id number] [place] [address] Mar, 2013 [facility] [address] [id number] [place] [address] 05 Sep, 2013 [facility] [address] [id number] [place] [address] 05 Sep, 2013 [facility] [address] [id number] [place] [address] 04 Sep, 2013 [facility] [address] [id number] [place] [address] 04 Sep, 2013 [facility] [address] [id number] [place] [address] 03 Sep, 2013 [facility] [address] [id number] [place] [address] 03 Sep, 2013 [facility] [address] [id number] [place] [address] Sep, 2013 [facility] [address] [id number] [place] [address] Sep, 2013 [facility] [address] [id number] [place] [address] Sep, 2013 [facility] [address] [id number] [place] [address] Sep, 2013 [facility] [address] [id number] [facility] [place] [address] Jan, [facility] [address] [id number] [facility] [place] [address] Jan, [facility] [address] [facility] [id number] [facility] [place] [address] Jan, [facility] [address] [facility] [id number] [place] [address] Jan, [facility] [address] [facility] [id number] [facility] [place] [address] Jan, [facility] [address] [id number] [facility] [place] [address] Jan, [facility] [address] [facility] [id number] [place] [address] Jan, [facility] [address] [id number] [place] [address] Jan, [facility] [address] [id number] [place] [address] Jan, [facility] [address] [id number] [place] [address] Jan, [facility] [address] [facility] [id number] [place] [address] Jan, [facility] [address] [id number] [place] [address] Jan, [facility] [address] [id number] [place] [address] Dec, [facility] [address] [id number] [place] [address] Dec, [facility] [address] [id number] [place] [address] Dec, [facility] [address] [facility] [id number] [place] [address] Dec, [facility] [address] [id number] [place] [address] Dec, [facility] [address] [facility] [id number] [place] [address] 14 Dec, 2013 [facility] [address] [facility] [id number] [place] [address] Dec, 2013 [facility] [address] [facility] [id number] [place] [address] Dec, 2013 [facility] [address] [id number] [place] [address] Dec, 2013 [facility] [address] [facility] [id number] [place] [address] Dec, 2013 [facility] [address] [id number] [place] [address] Dec, 2013 [facility] [address] [id number] [place] [address] Dec, 2013 [facility] [address] [id number] [place] [address] Nov, 2013 [facility] [address] [id number] [place] [address] Nov, [facility] [address] [id number] [place] [address] Nov, [facility] [address] [id number] [place] [address] Nov, [facility] [address] [id number] [place] [address] Nov, [facility] [address] [id number] [place] [address] Nov, [facility] [address] [id number] [place] [address] Nov, [facility] [address] [id number] [place] [address] Nov, [facility] [address] [id number] [place] [address] Nov, [facility] [address] [id number] [place] [address] Nov, [facility] [address] [id number] [place] [address] Nov, [facility] [address] [id number] [place] [address] Nov, [facility] [address] [id number] [place] [address] Nov, [facility] [address] [id number] [place] [address] Nov, [facility] [address] [id number] [place] [address] October, [facility] [address] [id number] [place] [address] October, [facility] [address] [id number] [place] [address] October, [facility] [address] [id number] [place] [address] October, [facility] [address] [id number] [place] [address] October, [facility] [address] [id number] [place] [address] October, [facility] [address] [id number] [place] [address] October, [facility] [address] [id number] [place] [address] October, [facility] [address] [id number] [place] [address] October, [facility] [address] [id number] [place] [address] October, [facility] [address] [id number] [place] [address] October, [facility] [address] [id number] [place] [address] October, [facility] [address] [id number] [facility] [place] [address] Sep, [facility] [address] [id number] [facility] [place] [address] Sep, [facility] [address] [facility] [id number] [facility] [place] [address] Sep, [facility] [address] [id number] [place] [address] Sep, [facility] [address] [id number] [facility] [place] [address] Sep, [facility] [address] [facility] [id number] [facility] [place] [address] Sep, [facility] [address] [id number] [place] [address] Aug, [facility] [address] [id number] [place] [address] Aug, [facility] [address] [id number] [place] [address] Aug, [facility] [address] [facility] [id number] [place] [address] Aug, [facility] [address] [id number] [place] [address] Aug, [facility] [address] [id number] [place] [address] Aug, [facility] [address] [id number] [place] [address] Jul, [facility] [address] [facility] [id number] [place] [address] Jul, [facility] [address] [id number] [place] [address] Jul, [facility] [address] [id number] [place] [address] Jul, [facility] [address] [id number] [place] [address] Jul, [facility] [address] [facility] [id number] [facility] [place] [address] Jul, [facility] [address] [id number] [facility] [place] [address] Jul, [facility] [address] [id number] [place] [address] Jul, [facility] [address] [id number] [place] [address] Jul, [facility] [address] [id number] [place] [address] Jul, [facility] [address] [id number] [place] [address] Jun, [facility] [address] [id number] [place] [address] Jun, [facility] [address] [id number] [place] [address] Jun, [facility] [address] [id number] [place] [address] Jun, [facility] [address] [id number] [place] [address] Jun, [facility] [address] [id number] [place] [address] Jun, [facility] [address] [id number] [place] [address] Jun, [facility] [place] [facility] [address] [id number] [place] [address] Jun, [facility] [place] [facility] [address] [id number] [place] [address] May, [facility] [place] [facility] [address] [id number] [place] [address] May, [facility] [place] [facility] [address] [id number] [place] [address] May, [facility] [place] [facility] [address] [id number] [place] [address] May, 2012 [facility] [place] [facility] [address] [id number] [place] [address] May, [facility] [place] [facility] [address] [id number] [place] [address] May, [facility] [place] [facility] [address] [id number] [place] [address] May, [facility] [place] [facility] [address] [id number] [place] [address] May, [facility] [place] [facility] [address] [id number] [place] [address] Apr, [facility] [place] [facility] [address] [id number] [place] [address] Apr, [facility] [place] [facility] [address] [id number] [place] [address] Apr, [facility] [place] [facility] [address] [id number] [place] [address] Apr, [facility] [place] [facility] [address] [id number] [place] [address] Apr, [facility] [place] [facility] [address] [id number] [place] [address] Apr, [facility] [place] [facility] [address] [id number] [place] [address] Mar, [facility] [place] [facility] [address] [id number] [place] [address] Mar, [facility] [place] [facility] [address] [id number] [place] [address] Mar, [facility] [place] [facility] [address] [id number] [place] [address] Mar, [facility] [place] [facility] [address] [id number] [place] [address] Mar, [facility] [place] [facility] [address] [id number] [place] [address] Mar, [facility] [place] [facility] [address] [id number] [place] [address] Mar, [facility] [place] [facility] [address] [id number] [place] [address] Feb, [facility] [place] [facility] [address] [id number] [place] [address] 30 Feb, 2012 [facility] [place] [facility] [address] [id number] [place] [address] Feb, [facility] [place] [facility] [address] [facility] [id number] [place] [address] Feb, 2012 [facility] [place] [facility] [address] [id number] [place] [address] Feb, [facility] [place] [facility] [address] [id number] [place] [address] Feb, [facility] [place] [facility] [address] [id number] [place] [address] Jan, [facility] [place] [facility] [address] [id number] [place] [address] Jan, [facility] [place] [facility] [address] [id number] [place] [address] Jan, [facility] [place] [facility] [address] [id number] [place] [address] Jan, [facility] [place] [facility] [address] [id number] [place] [address] Jan, [facility] [place] [facility] [address] [id number] [place] [address] Jan, [facility] [place] [facility] [address] [id number] [place] [address] Jan, [facility] [place] [facility] [address] [id number] [place] [address] Jan, [facility] [place] [facility] [address] [id number] [place] [address] Jan, [facility] [place] [facility] [address] [id number] [place] [address] 29 Dec, 2012 [facility] [place] [facility] [address] [id number] [facility] [place] [address] Dec, 2012 [facility] [place] [facility] [address] [facility] [id number] [facility] [place] [address] Dec, 2012 [facility] [place] [facility] [address] [id number] [facility] [place] [address] 18 Dec, 2012 [facility] [place] [facility] [address] [id number] [place] [address] 17 Dec, 2012 [facility] [place] [facility] [address] [facility] [id number] [facility] [place] [address] 16 Dec, 2012 [facility] [place] [facility] [address] [id number] [facility] [place] [address] 15 Dec, 2012 [facility] [place] [facility] [address] [id number] [facility] [place] [address] 09 Dec, 2012 [facility] [place] [facility] [address] [id number] [facility] [place] [address] Dec, 2012 [facility] [place] [facility] [address] [id number] [facility] [place] [address] Dec, 2012 [facility] [place] [facility] [address] [id number] [facility] [place] [address] Dec, [facility] [place] [facility] [address] [id number] [place] [address] Dec, 2012 [facility] [place] [facility] [address] [id number] [place] [address] Dec, 2012 [facility] [place] [facility] [address] [id number] [facility] [place] [address] Nov, [facility] [place] [facility] [address] [id number] [place] [address] Nov, 2012 [facility] [place] [facility] [address] [id number] [place] [address] Nov, [facility] [place] [facility] [address] [id number] [place] [address] Nov, [facility] [place] [facility] [address] [facility] [id number] [facility] [place] [address] October, [facility] [place] [facility] [address] [id number] [place] [address] October, [facility] [place] [facility] [address] [id number] [place] [address] October, [facility] [place] [facility] [address] [id number] [place] [address] October, [facility] [place] [facility] [address] [id number] [facility] [place] [address] October, [facility] [place] [facility] [address] [id number] [facility] [place] [address] October, [facility] [place] [facility] [address] [id number] [place] [address] Sep, [facility] [place] [facility] [address] [id number] [place] [address] Sep, [facility] [place] [facility] [address] [id number] [place] [address] Sep, [facility] [place] [facility] [address] [id number] [place] [address] Sep, [facility] [place] [facility] [address] [id number] [place] [address] Sep, [facility] [place] [facility] [address] [id number] [place] [address] 16 Sep, 2012 [facility] [place] [facility] [address] [id number] [place] [address] Sep, [facility] [place] [facility] [address] [id number] [place] [address] Sep, [facility] [place] [facility] [address] [id number] [place] [address] Sep, [facility] [place] [facility] [address] [id number] [place] [address] Sep, [facility] [place] [facility] [address] [id number] [place] [address] Sep, [facility] [address] [id number] [place] [address] Aug, [facility] [place] [facility] [address] [id number] [place] [address] 25 Aug, 2012 [facility] [place] [facility] [address] [id number] [place] [address] Aug, [facility] [place] [facility] [address] [id number] [place] [address] Aug, [facility] [place] [facility] [address] [id number] [place] [address] 19 Aug, 2012 [facility] [address] [id number] [place] [address] 18 Aug, 2012 [facility] [place] [facility] [address] [id number] [place] [address] 17 Aug, 2012 [facility] [address] [id number] [place] [address] 15 Aug, 2012 [facility] [place] [facility] [address] [id number] [place] [address] 15 Aug, 2012 [facility] [place] [facility] [address] [id number] [place] [address] Aug, [facility] [place] [facility] [address] [id number] [place] [address] Aug, [facility] [place] [facility] [address] [id number] [place] [address] 07 Aug, 2012 [facility] [place] [facility] [address] [id number] [place] [address] 27 Jul, 2012 [facility] [place] [facility] [address] [id number] [place] [address] Jul, [facility] [place] [facility] [address] [id number] [place] [address] 26 Jul, 2012 [facility] [place] [facility] [address] [id number] [place] [address] 22 Jul, 2012 [facility] [place] [facility] [address] [id number] [place] [address] Jul, 2012 [facility] [address] [id number] [place] [address] Jul, 2012 [facility] [place] [facility] [address] [id number] [place] [address] Jul, 2012 [facility] [place] [facility] [address] [id number] [place] [address] Jul, [facility] [place] [facility] [address] [id number] [place] [address] Jul, [facility] [place] [facility] [address] [id number] [place] [address] Jul, [facility] [place] [facility] [address] [id number] [place] [address] May, [facility] [id number] [id number] May, [facility] [place] [facility] [id number] [place] [address] May, [facility] [place] [facility] [address] [id number] [place] [address] May, [facility] [place] [facility] [id number] [place] [address] May, [facility] [place] [facility] [id number] [place] [address] Apr, [facility] [place] [address] [id number] [id number] Apr, [facility] [place] [facility] [id number] [place] [address] Apr, [facility] [place] [facility] [id number] [place] [address] Mar, [facility] [id number] [id number] Mar, [facility] [place] [facility] [id number] [place] [address] Mar, [facility] [place] [id number] [place] [id number] 13 Feb, 2012 [facility] [place] [facility] [address] [id number] [place] [address] Feb, [facility] [place] [facility] [address] [id number] [place] [address] Feb, [facility] [address] [id number] [id number] 10 Feb, 2012 [facility] [address] [id number] [place] [id number] 07 Feb, 2012 [facility] [address] [id number] [id number] Jan, [facility] [place] [facility] [id number] [place] [address] Jan, [facility] [address] [id number] [id number] Jan, [facility] [id number] [id number] Jan, [facility] [id number] [id number] Jan, [facility] [place] [facility] [address] [id number] [place] [address] Jan, [facility] [place] [facility] [address] [id number] [place] [address] Jan, [facility] [place] [facility] [id number] [place] [address] Aug, [facility] [address] [id number] [id number] Aug, [facility] [place] [facility] [address] [id number] [place] [address] Jul, [facility] [place] [facility] [id number] [place] [address] Jul, [facility] [place] [facility] [id number] [place] [address] Jul, [facility] [address] [id number] [id number] Jul, [facility] [place] [facility] [address] [id number] [place] [address] Jul, [facility] [address] [id number] [id number] Jul, [facility] [place] [facility] [id number] [place] [address] Jul, [facility] [place] [address] [id number] [id number] Jul, [facility] [place] [address] [id number] [id number] Jul, [facility] [place] [address] [id number] [id number] Jul, [facility] [place] [facility] [id number] [place] [address] May, [facility] [place] [facility] [id number] [place] [address] May, [facility] [place] [facility] [id number] [place] [address] May, [facility] [place] [facility] [id number] [place] [address] Apr, [facility] [place] [facility] [id number] [place] [address] Jan, [facility] [place] [facility] [id number] [place] [address] Jan, [facility] [place] [facility] [id number] [place] [address] Dec, [facility] [place] [facility] [address] [id number] [place] [address] Dec, [facility] [place] [facility] [id number] [place] [address] 16 May, 2009 [facility] [place] [facility] [id number] [place] [address] Mar, [facility] [place] [facility] [id number] [place] [address] Mar, [facility] [place] [facility] [address] [facility] [id number] [place] [address] Jan, IMMUNIZATIONS No Known Immunizations SOCIAL HISTORY [...]
--- OUTSIDE RECORDS SUMMARY | 2020-01-28 12:36 | XMS REPORT ---
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 Active 305068334 Problem History of venous thromboembolism V12.51 Active 490286144 Problem Cellulitis of unspecified part of limb L03.119 Active 310042662 Problem Gastroesophageal reflux disease without esophagitis K21.9 Active 369781971 Problem History of pulmonary embolism Z86.711 Active 959778180 Problem Pseudotumor cerebri G93.2 Active 84127677 Problem History of DVT (deep vein thrombosis) Z86.718 Active 996653932 ALLERGIES No Information ENCOUNTERS Encounter Location Date Diagnosis [place] [address] [address] Apr, 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 [place] [address] [address] Apr, senior care 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 Z 79.01 [place] [address] [address] Apr, Cellulitis of unspecified part of limb L 03.119 ; Allergic contact dermatitis due to adhesives L23.1 and Chronic pain syndrome G89.4 [place] [address] [address] Apr, [place] [address] [address] Apr, 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 Z 79.01 ; Cellulitis of unspecified part of limb L03.119 ; Chronic pain syndrome G89.4 and Anxiety F41.9 [place] [address] [address] Apr, [place] [address] [address] Apr, [place] [address] [address] Mar, [place] [address] [address] Mar, [address] [address] Mar, Sore throat J02.9 ; Gastroesophageal ref lux disease without esophagitis K21.9 ; Pseudotumor cerebri G93.2 ; Chronic pain syndrome G89.4 ; Choriocarcinoma C58 ; History of pulmonary embolism Z86.711 ; History of DVT (deep vein thrombosis) Z86.718 ; Anxiety F41.9 and Tachycardia R00.[address] [address] Feb, Anxiety 300.00 and Chronic pain 338.[address] [address] Feb, [place] [address] [address] Feb, [place] [address] [address] Jan, 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 and Dysuria 788.[address] [address] Jan, Dysuria 788.[address] [address] Jan, Anxiety 300.00 and Chronic pain 338.29 [place] [address] [address] Jan, [place] [address] [address] Jan, [place] [address] [address] Jan, [place] [address] [address] Dec, Weakness 780.79 [place] [address] [address] Dec, 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 [place] [address] [address] Dec, Palpitations 785.1 ; Tremor 781.0 ; Weak ness 780.79 ; 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 and Yeast vaginitis 112.1 [place] [address] [address] Dec, [place] [address] [address] Dec, Cervicalgia 723.1 ; Tachycardia 785.0 ; Pseudotumor cerebri 348.2 and History of venous thromboembolism V12.51 [place] [address] [address] Nov, [place] [address] [address] Nov, [place] [address] [address] Nov, Tachycardia 785.0 ; Pseudotumor cerebri 348.2 ; Anxiety 300.00 and History of venous thromboembolism V12.51 [place] [address] [address] Nov, [place] [address] [address] Nov, [facility] [address] [id number] [place] [address] 16 Nov, 2014 [facility] [address] [place] [id number] [place] [address] 12 Nov, 2014 [facility] [address] [id number] [place] [address] Nov, [facility] [address] [place] [id number] [place] [address] 08 Nov, 2014 [facility] [address] [id number] [place] [address] Nov, [facility] [address] [place] [id number] [place] [address] October, [facility] [address] [place] [id number] [place] [address] October, [facility] [address] [place] [id number] [place] [address] October, Pain in thoracic spine 724.1 and Tachyca rdia 785.0 [facility] [address] [place] [id number] [place] [address] October, [facility] [address] [place] [id number] [place] [address] October, [facility] [address] [place] [id number] [place] [address] 14 Sep, 2014 [facility] [address] [place] [id number] [place] [address] Sep, [facility] [address] [place] [id number] [place] [address] Aug, [facility] [address] [place] [id number] [place] [address] Aug, [facility] [address] [id number] [place] [address] Aug, [facility] [address] [place] [id number] [place] [address] Aug, [facility] [address] [id number] [place] [address] Aug, 2014 [facility] [address] [id number] [place] [address] Aug, 2014 [facility] [address] [id number] [place] [address] Aug, 2014 [facility] [address] [id number] [place] [address] Aug, 2014 [facility] [address] [id number] [place] [address] Aug, 2014 [facility] [address] [id number] [place] [address] Aug, 2014 [facility] [address] [id number] [place] [address] Aug, 2014 [facility] [address] [id number] [place] [address] Aug, 2014 [facility] [address] [id number] [place] [address] Jul, 2014 [facility] [address] [id number] [place] [address] Jul, 2014 [facility] [address] [id number] [place] [address] Jul, 2014 [facility] [address] [id number] [place] [address] Jul, 2014 [facility] [address] [id number] [place] [address] Jul, 2014 [facility] [address] [id number] [place] [address] Jul, 2014 [facility] [address] [id number] [place] [address] Jul, 2014 [facility] [address] [id number] [place] [address] Jul, 2014 [facility] [address] [id number] [place] [address] 20 Jul, 2014 [facility] [address] [id number] [place] [address] 20 Jul, 2014 [facility] [address] [id number] [place] [address] 19 Jul, 2014 [facility] [address] [id number] [place] [address] 19 Jul, 2014 [facility] [address] [id number] [place] [address] 17 Jul, 2014 [facility] [address] [id number] [place] [address] 17 Jul, 2014 [facility] [address] [id number] [place] [address] 16 Jul, 2014 [facility] [address] [id number] [place] [address] 16 Jul, 2014 [facility] [address] [id number] [place] [address] 16 Jul, 2014 [facility] [address] [id number] [place] [address] 16 Jul, 2014 [facility] [address] [id number] [place] [address] 13 Jul, 2014 [facility] [address] [id number] [place] [address] 13 Jul, 2014 [facility] [address] [id number] [place] [address] 13 Jul, 2014 [facility] [address] [id number] [place] [address] 13 Jul, 2014 [facility] [address] [id number] [place] [address] 12 Jul, 2014 [facility] [address] [id number] [place] [address] 12 Jul, 2014 [facility] [address] [id number] [place] [address] Jul, [facility] [address] [facility] [id number] [place] [address] Jul, [facility] [address] [id number] [place] [address] Jul, [facility] [address] [id number] [place] [address] Jul, [facility] [address] [id number] [place] [address] Jul, [facility] [address] [id number] [place] [address] Jul, [facility] [address] [id number] [place] [address] Jun, [facility] [address] [id number] [place] [address] Jun, [facility] [address] [id number] [place] [address] Jun, [facility] [address] [id number] [place] [address] Jun, [facility] [address] [id number] [place] [address] Jun, [facility] [address] [id number] [place] [address] Jun, [facility] [address] [id number] [place] [address] Jun, [facility] [address] [id number] [place] [address] Jun, [facility] [address] [id number] [place] [address] Jun, [facility] [address] [id number] [place] [address] Jun, [facility] [address] [id number] [place] [address] Jun, [facility] [address] [id number] [place] [address] Jun, [facility] [address] [id number] [place] [address] Jun, [facility] [address] [id number] [place] [address] Jun, [facility] [address] [id number] [place] [address] Jun, [facility] [address] [id number] [place] [address] Jun, [facility] [address] [id number] [place] [address] Jun, [facility] [address] [id number] [place] [address] Jun, [facility] [address] [id number] [place] [address] Jun, [facility] [address] [id number] [place] [address] Jun, [facility] [address] [id number] [place] [address] May, [facility] [address] [id number] [place] [address] May, [facility] [address] [id number] [place] [address] May, [facility] [address] [id number] [place] [address] May, [facility] [address] [id number] [place] [address] May, [facility] [address] [id number] [place] [address] May, [facility] [address] [id number] [place] [address] May, [facility] [address] [id number] [place] [address] May, [facility] [address] [facility] [id number] [place] [address] May, [facility] [address] [id number] [place] [address] May, [facility] [address] [id number] [place] [address] May, [facility] [address] [id number] [place] [address] May, [facility] [address] [id number] [place] [address] 18 May, 2014 [facility] [address] [id number] [place] [address] 17 May, 2014 [facility] [address] [id number] [place] [address] 16 May, 2014 [facility] [address] [id number] [place] [address] 16 May, 2014 [facility] [address] [id number] [place] [address] 15 May, 2014 [facility] [address] [id number] [place] [address] 15 May, 2014 [facility] [address] [id number] [place] [address] 12 May, 2014 [facility] [address] [id number] [place] [address] May, [facility] [address] [id number] [place] [address] May, [facility] [address] [id number] [place] [address] May, [facility] [address] [id number] [place] [address] May, [facility] [address] [id number] [place] [address] May, [facility] [address] [id number] [place] [address] May, [facility] [address] [id number] [place] [address] May, [facility] [address] [id number] [place] [address] May, [facility] [address] [id number] [place] [address] May, [facility] [address] [id number] [place] [address] May, [facility] [address] [id number] [place] [address] May, [facility] [address] [id number] [place] [address] May, [facility] [address] [id number] [place] [address] May, [facility] [address] [id number] [place] [address] May, [facility] [address] [id number] [place] [address] May, [facility] [address] [id number] [place] [address] Apr, [facility] [address] [id number] [place] [address] Apr, [facility] [address] [id number] [place] [address] Apr, [facility] [address] [id number] [place] [address] Apr, [facility] [address] [id number] [place] [address] Apr, [facility] [address] [id number] [place] [address] Apr, [facility] [address] [id number] [place] [address] Apr, [facility] [address] [id number] [place] [address] Apr, [facility] [address] [id number] [place] [address] Apr, [facility] [address] [id number] [place] [address] Apr, [facility] [address] [id number] [place] [address] Mar, [facility] [address] [id number] [place] [address] Mar, [facility] [address] [id number] [place] [address] Mar, [facility] [address] [id number] [place] [address] Mar, [facility] [address] [id number] [place] [address] Mar, [facility] [address] [id number] [place] [address] 30 Mar, 2014 [facility] [address] [id number] [place] [address] Mar, [facility] [address] [id number] [place] [address] 17 Mar, 2013 [facility] [address] [id number] [place] [address] 15 Mar, 2014 [facility] [address] [id number] [place] [address] 15 Mar, 2014 [facility] [address] [id number] [place] [address] 15 Mar, 2014 [facility] [address] [id number] [place] [address] 15 Mar, 2014 [facility] [address] [id number] [place] [address] 09 Mar, 2014 [facility] [address] [id number] [place] [address] Mar, 2013 [facility] [address] [id number] [place] [address] Mar, 2013 [facility] [address] [id number] [place] [address] Mar, 2013 [facility] [address] [id number] [place] [address] Mar, 2013 [facility] [address] [id number] [place] [address] Mar, 2013 [facility] [address] [id number] [place] [address] Mar, 2013 [facility] [address] [id number] [place] [address] Mar, 2013 [facility] [address] [id number] [place] [address] 05 Sep, 2013 [facility] [address] [id number] [place] [address] 05 Sep, 2013 [facility] [address] [id number] [place] [address] 04 Sep, 2013 [facility] [address] [id number] [place] [address] 04 Sep, 2013 [facility] [address] [id number] [place] [address] 03 Sep, 2013 [facility] [address] [id number] [place] [address] 03 Sep, 2013 [facility] [address] [id number] [place] [address] Sep, 2013 [facility] [address] [id number] [place] [address] Sep, 2013 [facility] [address] [id number] [place] [address] Sep, 2013 [facility] [address] [id number] [place] [address] Sep, 2013 [facility] [address] [id number] [place] [address] Jan, [facility] [address] [id number] [place] [address] Jan, [facility] [address] [facility] [id number] [place] [address] Jan, [facility] [address] [facility] [id number] [place] [address] Jan, [facility] [address] [facility] [id number] [place] [address] Jan, [facility] [address] [id number] [place] [address] Jan, [facility] [address] [facility] [id number] [place] [address] Jan, [facility] [address] [id number] [place] [address] Jan, [facility] [address] [id number] [place] [address] Jan, [facility] [address] [id number] [place] [address] Jan, [facility] [address] [facility] [id number] [place] [address] Jan, [facility] [address] [id number] [place] [address] Jan, [facility] [address] [id number] [place] [address] Dec, [facility] [address] [id number] [place] [address] Dec, [facility] [address] [id number] [place] [address] Dec, [facility] [address] [facility] [id number] [place] [address] Dec, [facility] [address] [id number] [place] [address] Dec, [facility] [address] [facility] [id number] [place] [address] 14 Dec, 2013 [facility] [address] [facility] [id number] [place] [address] Dec, 2013 [facility] [address] [facility] [id number] [place] [address] Dec, 2013 [facility] [address] [id number] [place] [address] Dec, 2013 [facility] [address] [facility] [id number] [place] [address] Dec, 2013 [facility] [address] [id number] [place] [address] Dec, 2013 [facility] [address] [id number] [place] [address] Dec, 2013 [facility] [address] [id number] [place] [address] Nov, 2013 [facility] [address] [id number] [place] [address] Nov, [facility] [address] [id number] [place] [address] Nov, [facility] [address] [id number] [place] [address] Nov, [facility] [address] [id number] [place] [address] Nov, [facility] [address] [id number] [place] [address] Nov, [facility] [address] [id number] [place] [address] Nov, [facility] [address] [id number] [place] [address] Nov, [facility] [address] [id number] [place] [address] Nov, [facility] [address] [id number] [place] [address] Nov, [facility] [address] [id number] [place] [address] Nov, [facility] [address] [id number] [place] [address] Nov, [facility] [address] [id number] [place] [address] Nov, [facility] [address] [id number] [place] [address] Nov, [facility] [address] [id number] [place] [address] October, [facility] [address] [id number] [place] [address] October, [facility] [address] [id number] [place] [address] October, [facility] [address] [id number] [place] [address] October, [facility] [address] [id number] [place] [address] October, [facility] [address] [id number] [place] [address] October, [facility] [address] [id number] [place] [address] October, [facility] [address] [id number] [place] [address] October, [facility] [address] [id number] [place] [address] October, [facility] [address] [id number] [place] [address] October, [facility] [address] [id number] [place] [address] October, [facility] [address] [id number] [place] [address] October, [facility] [address] [id number] [place] [address] Sep, [facility] [address] [id number] [place] [address] Sep, [facility] [address] [facility] [id number] [place] [address] Sep, [facility] [address] [id number] [place] [address] Sep, [facility] [address] [id number] [place] [address] Sep, [facility] [address] [facility] [id number] [place] [address] Sep, [facility] [address] [id number] [place] [address] Aug, [facility] [address] [id number] [place] [address] Aug, [facility] [address] [id number] [place] [address] Aug, [facility] [address] [facility] [id number] [place] [address] Aug, [facility] [address] [id number] [place] [address] Aug, [facility] [address] [id number] [place] [address] Aug, [facility] [address] [id number] [place] [address] Jul, [facility] [address] [facility] [id number] [place] [address] Jul, [facility] [address] [id number] [place] [address] Jul, [facility] [address] [id number] [place] [address] Jul, [facility] [address] [id number] [place] [address] Jul, [facility] [address] [facility] [id number] [place] [address] Jul, [facility] [address] [id number] [place] [address] Jul, [facility] [place] [facility] [address] [id number] [place] [address] Jul, [facility] [place] [facility] [address] [facility] [id number] [place] [address] Jul, [facility] [place] [facility] [address] [id number] [place] [address] Jul, [facility] [place] [facility] [address] [id number] [place] [address] Jun, [facility] [place] [facility] [address] [id number] [place] [address] Jun, [facility] [place] [facility] [address] [id number] [place] [address] Jun, [facility] [place] [facility] [address] [id number] [place] [address] Jun, [facility] [place] [facility] [address] [id number] [place] [address] Jun, [facility] [place] [facility] [address] [id number] [place] [address] Jun, [facility] [place] [facility] [address] [id number] [place] [address] Jun, [facility] [place] [facility] [address] [id number] [place] [address] Jun, [facility] [place] [facility] [address] [id number] [place] [address] May, [facility] [place] [facility] [address] [id number] [place] [address] May, [facility] [place] [facility] [address] [id number] [place] [address] May, [facility] [place] [facility] [address] [id number] [place] [address] May, 2012 [facility] [place] [facility] [address] [id number] [place] [address] May, [facility] [place] [facility] [address] [id number] [place] [address] May, [facility] [place] [facility] [address] [id number] [place] [address] May, [facility] [place] [facility] [address] [id number] [place] [address] May, [facility] [place] [facility] [address] [id number] [place] [address] Apr, [facility] [place] [facility] [address] [id number] [place] [address] Apr, [facility] [place] [facility] [address] [id number] [place] [address] Apr, [facility] [place] [facility] [address] [id number] [place] [address] Apr, [facility] [place] [facility] [address] [id number] [place] [address] Apr, [facility] [place] [facility] [address] [id number] [place] [address] Apr, [facility] [place] [facility] [address] [id number] [place] [address] Mar, [facility] [place] [facility] [address] [id number] [place] [address] Mar, [facility] [place] [facility] [address] [id number] [place] [address] Mar, [facility] [place] [facility] [address] [id number] [place] [address] Mar, [facility] [place] [facility] [address] [id number] [place] [address] Mar, [facility] [place] [facility] [address] [id number] [place] [address] Mar, [facility] [place] [facility] [address] [id number] [place] [address] Mar, [facility] [place] [facility] [address] [id number] [place] [address] Feb, [facility] [place] [facility] [address] [id number] [place] [address] 30 Feb, 2012 [facility] [place] [facility] [address] [id number] [place] [address] Feb, [facility] [place] [facility] [address] [facility] [id number] [place] [address] Feb, 2012 [facility] [place] [facility] [address] [id number] [place] [address] Feb, [facility] [place] [facility] [address] [id number] [place] [address] Feb, [facility] [place] [facility] [address] [id number] [place] [address] Jan, [facility] [place] [facility] [address] [id number] [place] [address] Jan, [facility] [place] [facility] [address] [id number] [place] [address] Jan, [facility] [place] [facility] [address] [id number] [place] [address] Jan, [facility] [place] [facility] [address] [id number] [place] [address] Jan, [facility] [place] [facility] [address] [id number] [place] [address] Jan, [facility] [place] [facility] [address] [id number] [place] [address] Jan, [facility] [place] [facility] [address] [id number] [place] [address] Jan, [facility] [place] [facility] [address] [id number] [place] [address] Jan, [facility] [place] [facility] [address] [id number] [place] [address] 29 Dec, 2012 [facility] [place] [facility] [address] [id number] [place] [address] Dec, 2012 [facility] [place] [facility] [address] [facility] [id number] [place] [address] Dec, 2012 [facility] [place] [facility] [address] [id number] [place] [address] 18 Dec, 2012 [facility] [place] [facility] [address] [id number] [place] [address] 17 Dec, 2012 [facility] [place] [facility] [address] [facility] [id number] [place] [address] 16 Dec, 2012 [facility] [place] [facility] [address] [id number] [place] [address] 15 Dec, 2012 [facility] [place] [facility] [address] [id number] [place] [address] 09 Dec, 2012 [facility] [place] [facility] [address] [id number] [place] [address] Dec, 2012 [facility] [place] [facility] [address] [id number] [place] [address] Dec, 2012 [facility] [place] [facility] [address] [id number] [place] [address] Dec, [facility] [place] [facility] [address] [id number] [place] [address] Dec, 2012 [facility] [place] [facility] [address] [id number] [place] [address] Dec, 2012 [facility] [place] [facility] [address] [id number] [place] [address] Nov, [facility] [place] [facility] [address] [id number] [place] [address] Nov, 2012 [facility] [place] [facility] [address] [id number] [place] [address] Nov, [facility] [place] [facility] [address] [id number] [place] [address] Nov, [facility] [place] [facility] [address] [facility] [id number] [place] [address] October, [facility] [place] [facility] [address] [id number] [place] [address] October, [facility] [place] [facility] [address] [id number] [place] [address] October, [facility] [place] [facility] [address] [id number] [place] [address] October, [facility] [place] [facility] [address] [id number] [place] [address] October, [facility] [place] [facility] [address] [id number] [place] [address] October, [facility] [place] [facility] [address] [id number] [place] [address] Sep, [facility] [place] [facility] [address] [id number] [place] [address] Sep, [facility] [place] [facility] [address] [id number] [place] [address] Sep, [facility] [place] [facility] [address] [id number] [place] [address] Sep, [facility] [place] [facility] [address] [id number] [place] [address] Sep, [facility] [place] [facility] [address] [id number] [place] [address] 16 Sep, 2012 [facility] [place] [facility] [address] [id number] [place] [address] Sep, [facility] [place] [facility] [address] [id number] [place] [address] Sep, [facility] [place] [facility] [address] [id number] [place] [address] Sep, [facility] [place] [facility] [address] [id number] [place] [address] Sep, [facility] [place] [facility] [address] [id number] [place] [address] Sep, [facility] [address] [id number] [place] [address] Aug, [facility] [place] [facility] [address] [id number] [place] [address] 25 Aug, 2012 [facility] [place] [facility] [address] [id number] [place] [address] Aug, [facility] [place] [facility] [address] [id number] [place] [address] Aug, [facility] [place] [facility] [address] [id number] [place] [address] 19 Aug, 2012 [facility] [address] [id number] [place] [address] 18 Aug, 2012 [facility] [place] [facility] [address] [id number] [place] [address] 17 Aug, 2012 [facility] [address] [id number] [place] [address] 15 Aug, 2012 [facility] [place] [facility] [address] [id number] [place] [address] 15 Aug, 2012 [facility] [place] [facility] [address] [id number] [place] [address] Aug, [facility] [place] [facility] [address] [id number] [place] [address] Aug, [facility] [place] [facility] [address] [id number] [place] [address] 07 Aug, 2012 [facility] [place] [facility] [address] [id number] [place] [address] 27 Jul, 2012 [facility] [place] [facility] [address] [id number] [place] [address] Jul, [facility] [place] [facility] [address] [id number] [place] [address] 26 Jul, 2012 [facility] [place] [facility] [address] [id number] [place] [address] 22 Jul, 2012 [facility] [place] [facility] [address] [id number] [place] [address] Jul, 2012 [facility] [address] [id number] [place] [address] Jul, 2012 [facility] [place] [facility] [address] [id number] [place] [address] Jul, 2012 [facility] [place] [facility] [address] [id number] [place] [address] Jul, [facility] [place] [facility] [address] [id number] [place] [address] Jul, [facility] [place] [facility] [address] [id number] [place] [address] Jul, [facility] [place] [facility] [address] [id number] [place] [address] May, [facility] [id number] [address] May, [facility] [place] [facility] [id number] [place] [address] May, [facility] [place] [facility] [address] [id number] [place] [address] May, [facility] [place] [facility] [id number] [place] [address] May, [facility] [place] [facility] [id number] [place] [address] Apr, [facility] [address] [id number] [id number] Apr, [facility] [place] [facility] [id number] [place] [address] Apr, [facility] [place] [facility] [id number] [place] [address] Mar, [facility] [id number] [id number] Mar, [facility] [place] [facility] [id number] [place] [address] Mar, [facility] [place] [id number] [id number] 13 Feb, 2012 [facility] [place] [facility] [address] [id number] [place] [address] Feb, [facility] [place] [facility] [address] [id number] [place] [address] Feb, [facility] [address] [facility] [id number] 10 Feb, 2012 [facility] [address] [facility] [id number] 07 Feb, 2012 [facility] [address] [facility] [id number] Jan, [facility] [place] [facility] [id number] [place] [address] Jan, [facility] [address] [facility] [place] [id number] Jan, [facility] [id number] [id number] Jan, [facility] [id number] [id number] Jan, [facility] [place] [facility] [address] [id number] [place] [address] Jan, [facility] [place] [facility] [address] [id number] [place] [address] Jan, [facility] [place] [facility] [id number] [place] [address] Aug, [facility] [address] [facility] [id number] Aug, [facility] [place] [facility] [address] [id number] [place] [address] Jul, [facility] [place] [facility] [id number] [place] [address] Jul, [facility] [place] [facility] [id number] [place] [address] Jul, [facility] [address] [id number] [id number] Jul, [facility] [place] [facility] [address] [id number] [place] [address] Jul, [facility] [address] [id number] [id number] Jul, [facility] [place] [facility] [id number] [place] [address] Jul, [facility] [address] [facility] [id number] Jul, [facility] [address] [id number] [id number] Jul, [facility] [address] [id number] [id number] Jul, [facility] [place] [facility] [id number] [place] [address] May, [facility] [place] [facility] [id number] [place] [address] May, [facility] [place] [facility] [id number] [place] [address] May, [facility] [place] [facility] [id number] [place] [address] Apr, [facility] [place] [facility] [id number] [place] [address] Jan, [facility] [place] [facility] [id number] [place] [address] Jan, [facility] [place] [facility] [id number] [place] [address] Dec, [facility] [place] [facility] [address] [id number] [place] [address] Dec, [facility] [place] [facility] [id number] [place] [address] 16 May, 2009 [facility] [place] [facility] [id number] [place] [address] Mar, [facility] [place] [facility] [id number] [place] [address] Mar, [facility] [place] [facility] [address] [facility] [id number] [place] [address] 14 Jan, 2009 IMMUNIZATIONS No Known Immunizations SOCIAL HISTORY Never Assessed REASON FOR VISIT PLAN OF CARE VITAL SIGNS MEDICATIONS Unknown Medications RESULTS No Results PROCEDURES Procedure Date Ordered Result Body Site PROTHROMBIN TIME January 12, 2014 INSTRUCTIONS MEDICATIONS ADMINISTERED No Known Medications [...]
--- OUTSIDE RECORDS SUMMARY | 2020-01-28 12:36 | XMS REPORT ---
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 870560302 Problem History of venous thromboembolism V12.51 Active 492445616 Problem Cellulitis of unspecified part of limb L03.119 Active 087034945 Problem Gastroesophageal reflux disease without esophagitis K21.9 Active 530832017 Problem History of pulmonary embolism Z86.711 Active 429101659 Problem Pseudotumor cerebri G93.2 Active 65771972 Problem History of DVT (deep vein thrombosis) Z86.718 Active 223325826 ALLERGIES No Information ENCOUNTERS Encounter Location Date Diagnosis [place] [address] [address] Apr, 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 (current) use of 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 Z79.01 [place] [id number] [address] Apr, [facility] 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 Z 79.01 [place] [address] [address] Apr, Cellulitis of unspecified part of limb L 03.119 ; Allergic contact dermatitis due to adhesives L23.1 and Chronic pain syndrome G89.4 [place] [address] [address] Apr, [place] [address] [address] Apr, 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 79.01 ; Cellulitis of unspecified part of limb L03.119 ; Chronic pain syndrome G89.4 and Anxiety F41.9 [place] [address] [address] Apr, [place] [address] [address] Apr, [place] [address] [address] Mar, [place] [address] [address] Mar, [address] [address] Mar, Sore throat J02.9 ; Gastroesophageal ref lux disease without esophagitis K21.9 ; Pseudotumor cerebri G93.2 ; Chronic pain syndrome G89.4 ; Choriocarcinoma C58 ; History of pulmonary embolism Z86.711 ; History of DVT (deep vein thrombosis) Z86.718 ; Anxiety F41.9 and Tachycardia R00.[address] [address] Feb, Anxiety 300.00 and Chronic pain 338.[address] [address] Feb, [place] [address] [address] Feb, [place] [address] [address] Jan, 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 t herapy V58.61 and Dysuria 788.[address] [address] Jan, Dysuria 788.[address] [address] Jan, Anxiety 300.00 and Chronic pain 338.29 [place] [address] [address] Jan, [place] [address] [address] Jan, [place] [address] [address] Jan, [place] [address] [address] Dec, Weakness 780.79 [place] [address] [address] Dec, 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 t herapy V58.61 [place] [address] [address] Dec, Palpitations 785.1 ; Tremor 781.0 ; Weak ness 780.79 ; 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 therapy V58.61 and Yeast vaginitis 112.1 [place] [address] [address] Dec, [place] [address] [address] Dec, Cervicalgia 723.1 ; Tachycardia 785.0 ; Pseudotumor cerebri 348.2 and History of venous thromboembolism V12.51 [place] [address] [address] Nov, [place] [address] [address] Nov, [place] [address] [address] Nov, Tachycardia 785.0 ; Pseudotumor cerebri 348.2 ; Anxiety 300.00 and History of venous thromboembolism V12.51 [place] [address] [address] Nov, [place] [address] [address] Nov, [facility] [address] [id number] [place] [address] 16 Nov, 2014 [facility] [address] [place] [id number] [place] [address] 12 Nov, 2014 [facility] [address] [id number] [place] [address] Nov, [facility] [address] [place] [id number] [place] [address] 08 Nov, 2014 [facility] [address] [id number] [place] [address] Nov, [facility] [address] [place] [id number] [place] [address] October, [facility] [address] [place] [id number] [place] [address] October, [facility] [address] [place] [address] [id number] [place] [address] October, Pain in thoracic spine 724.1 and Tachyca rdia 785.0 [facility] [address] [place] [address] [id number] [place] [address] October, [facility] [address] [place] [address] [id number] [place] [address] October, [facility] [address] [place] [address] [id number] [place] [address] 14 Sep, 2014 [facility] [address] [place] [address] [id number] [place] [address] Sep, [facility] [address] [place] [address] [id number] [place] [address] Aug, [facility] [address] [place] [address] [id number] [place] [address] Aug, [facility] [address] [id number] [place] [address] Aug, [facility] [address] [place] [address] [id number] [place] [address] Aug, [facility] [address] [id number] [place] [address] Aug, 2014 [facility] [address] [id number] [place] [address] Aug, 2014 [facility] [address] [id number] [place] [address] Aug, 2014 [facility] [address] [id number] [place] [address] Aug, 2014 [facility] [address] [id number] [place] [address] Aug, 2014 [facility] [address] [id number] [place] [address] Aug, 2014 [facility] [address] [id number] [place] [address] Aug, 2014 [facility] [address] [id number] [place] [address] Aug, 2014 [facility] [address] [id number] [place] [address] Jul, 2014 [facility] [address] [id number] [place] [address] Jul, 2014 [facility] [address] [id number] [place] [address] Jul, 2014 [facility] [address] [id number] [place] [address] Jul, 2014 [facility] [address] [id number] [place] [address] Jul, 2014 [facility] [address] [id number] [place] [address] Jul, 2014 [facility] [address] [id number] [place] [address] Jul, 2014 [facility] [address] [id number] [place] [address] Jul, 2014 [facility] [address] [id number] [place] [address] 20 Jul, 2014 [facility] [address] [id number] [place] [address] 20 Jul, 2014 [facility] [address] [id number] [place] [address] 19 Jul, 2014 [facility] [address] [id number] [place] [address] 19 Jul, 2014 [facility] [address] [id number] [place] [address] 17 Jul, 2014 [facility] [address] [id number] [place] [address] 17 Jul, 2014 [facility] [address] [id number] [place] [address] 16 Jul, 2014 [facility] [address] [id number] [place] [address] 16 Jul, 2014 [facility] [address] [id number] [place] [address] 16 Jul, 2014 [facility] [address] [id number] [place] [address] 16 Jul, 2014 [facility] [address] [id number] [place] [address] 13 Jul, 2014 [facility] [address] [id number] [place] [address] 13 Jul, 2014 [facility] [address] [id number] [place] [address] 13 Jul, 2014 [facility] [address] [id number] [place] [address] 13 Jul, 2014 [facility] [address] [id number] [place] [address] 12 Jul, 2014 [facility] [address] [id number] [place] [address] 12 Jul, 2014 [facility] [address] [id number] [facility] [address] Jul, [facility] [address] [facility] [id number] [place] [address] Jul, [facility] [address] [id number] [place] [address] Jul, [facility] [address] [id number] [place] [address] Jul, [facility] [address] [id number] [place] [address] Jul, [facility] [address] [id number] [place] [address] Jul, [facility] [address] [id number] [place] [address] Jun, [facility] [address] [id number] [place] [address] Jun, [facility] [address] [id number] [place] [address] Jun, [facility] [address] [id number] [place] [address] Jun, [facility] [address] [id number] [place] [address] Jun, [facility] [address] [id number] [place] [address] Jun, [facility] [address] [id number] [place] [address] Jun, [facility] [address] [id number] [place] [address] Jun, [facility] [address] [id number] [place] [address] Jun, [facility] [address] [id number] [place] [address] Jun, [facility] [address] [id number] [place] [address] Jun, [facility] [address] [id number] [place] [address] Jun, [facility] [address] [id number] [place] [address] Jun, [facility] [address] [id number] [place] [address] Jun, [facility] [address] [id number] [place] [address] Jun, [facility] [address] [id number] [place] [address] Jun, [facility] [address] [id number] [place] [address] Jun, [facility] [address] [id number] [place] [address] Jun, [facility] [address] [id number] [place] [address] Jun, [facility] [address] [id number] [place] [address] Jun, [facility] [address] [id number] [place] [address] May, [facility] [address] [id number] [place] [address] May, [facility] [address] [id number] [place] [address] May, [facility] [address] [id number] [place] [address] May, [facility] [address] [id number] [place] [address] May, [facility] [address] [id number] [place] [address] May, [facility] [address] [id number] [place] [address] May, [facility] [address] [id number] [place] [address] May, [facility] [address] [facility] [id number] [place] [address] May, [facility] [address] [id number] [place] [address] May, [facility] [address] [id number] [place] [address] May, [facility] [address] [id number] [place] [address] May, [facility] [address] [id number] [place] [address] 18 May, 2014 [facility] [address] [id number] [place] [address] 17 May, 2014 [facility] [address] [id number] [place] [address] 16 May, 2014 [facility] [address] [id number] [place] [address] 16 May, 2014 [facility] [address] [id number] [place] [address] 15 May, 2014 [facility] [address] [id number] [place] [address] 15 May, 2014 [facility] [address] [id number] [place] [address] 12 May, 2014 [facility] [address] [id number] [place] [address] May, [facility] [address] [id number] [place] [address] May, [facility] [address] [id number] [place] [address] May, [facility] [address] [id number] [place] [address] May, [facility] [address] [id number] [place] [address] May, [facility] [address] [id number] [place] [address] May, [facility] [address] [id number] [place] [address] May, [facility] [address] [id number] [place] [address] May, [facility] [address] [id number] [place] [address] May, [facility] [address] [id number] [place] [address] May, [facility] [address] [id number] [place] [address] May, [facility] [address] [id number] [place] [address] May, [facility] [address] [id number] [place] [address] May, [facility] [address] [id number] [place] [address] May, [facility] [address] [id number] [place] [address] May, [facility] [address] [id number] [place] [address] Apr, [facility] [address] [id number] [place] [address] Apr, [facility] [address] [id number] [place] [address] Apr, [facility] [address] [id number] [place] [address] Apr, [facility] [address] [id number] [place] [address] Apr, [facility] [address] [id number] [place] [address] Apr, [facility] [address] [id number] [place] [address] Apr, [facility] [address] [id number] [place] [address] Apr, [facility] [address] [id number] [place] [address] Apr, [facility] [address] [id number] [place] [address] Apr, [facility] [address] [id number] [place] [address] Mar, [facility] [address] [id number] [place] [address] Mar, [facility] [address] [id number] [place] [address] Mar, [facility] [address] [id number] [place] [address] Mar, [facility] [address] [id number] [place] [address] Mar, [facility] [address] [id number] [place] [address] 30 Mar, 2014 [facility] [address] [id number] [place] [address] Mar, [facility] [address] [id number] [place] [address] 17 Mar, 2013 [facility] [address] [id number] [place] [address] 15 Mar, 2014 [facility] [address] [id number] [place] [address] 15 Mar, 2014 [facility] [address] [id number] [place] [address] 15 Mar, 2014 [facility] [address] [id number] [place] [address] 15 Mar, 2014 [facility] [address] [id number] [place] [address] 09 Mar, 2014 [facility] [address] [id number] [place] [address] Mar, 2013 [facility] [address] [id number] [place] [address] Mar, 2013 [facility] [address] [id number] [place] [address] Mar, 2013 [facility] [address] [id number] [place] [address] Mar, 2013 [facility] [address] [id number] [place] [address] Mar, 2013 [facility] [address] [id number] [place] [address] Mar, 2013 [facility] [address] [id number] [place] [address] Mar, 2013 [facility] [address] [id number] [place] [address] 05 Sep, 2013 [facility] [address] [id number] [place] [address] 05 Sep, 2013 [facility] [address] [id number] [place] [address] 04 Sep, 2013 [facility] [address] [id number] [place] [address] 04 Sep, 2013 [facility] [address] [id number] [place] [address] 03 Sep, 2013 [facility] [address] [id number] [place] [address] 03 Sep, 2013 [facility] [address] [id number] [place] [address] Sep, 2013 [facility] [address] [id number] [place] [address] Sep, 2013 [facility] [address] [id number] [place] [address] Sep, 2013 [facility] [address] [id number] [place] [address] Sep, 2013 [facility] [address] [id number] [facility] [address] Jan, [facility] [address] [id number] [facility] [address] Jan, [facility] [address] [facility] [id number] [facility] [address] Jan, [facility] [address] [facility] [id number] [place] [address] Jan, [facility] [address] [facility] [id number] [facility] [address] Jan, [facility] [address] [id number] [facility] [place] [address] Jan, [facility] [address] [facility] [id number] [place] [address] Jan, [facility] [address] [id number] [place] [address] Jan, [facility] [address] [id number] [place] [address] Jan, [facility] [address] [id number] [place] [address] Jan, [facility] [address] [facility] [id number] [place] [address] Jan, [facility] [address] [id number] [place] [address] Jan, [facility] [address] [id number] [place] [address] Dec, [facility] [address] [id number] [place] [address] Dec, [facility] [address] [id number] [place] [address] Dec, [facility] [address] [facility] [id number] [place] [address] Dec, [facility] [address] [id number] [place] [address] Dec, [facility] [address] [facility] [id number] [place] [address] 14 Dec, 2013 [facility] [address] [facility] [id number] [place] [address] Dec, 2013 [facility] [address] [facility] [id number] [place] [address] Dec, 2013 [facility] [address] [id number] [place] [address] Dec, 2013 [facility] [address] [facility] [id number] [place] [address] Dec, 2013 [facility] [address] [id number] [place] [address] Dec, 2013 [facility] [address] [id number] [place] [address] Dec, 2013 [facility] [address] [id number] [place] [address] Nov, 2013 [facility] [address] [id number] [place] [address] Nov, [facility] [address] [id number] [place] [address] Nov, [facility] [address] [id number] [place] [address] Nov, [facility] [address] [id number] [place] [address] Nov, [facility] [address] [id number] [place] [address] Nov, [facility] [address] [id number] [place] [address] Nov, [facility] [address] [id number] [place] [address] Nov, [facility] [address] [id number] [place] [address] Nov, [facility] [address] [id number] [place] [address] Nov, [facility] [address] [id number] [place] [address] Nov, [facility] [address] [id number] [place] [address] Nov, [facility] [address] [id number] [place] [address] Nov, [facility] [address] [id number] [place] [address] Nov, [facility] [address] [id number] [place] [address] October, [facility] [address] [id number] [place] [address] October, [facility] [address] [id number] [place] [address] October, [facility] [address] [id number] [place] [address] October, [facility] [address] [id number] [place] [address] October, [facility] [address] [id number] [place] [address] October, [facility] [address] [id number] [place] [address] October, [facility] [address] [id number] [place] [address] October, [facility] [address] [id number] [place] [address] October, [facility] [address] [id number] [place] [address] October, [facility] [address] [id number] [place] [address] October, [facility] [address] [id number] [place] [address] October, [facility] [address] [id number] [facility] [address] Sep, [facility] [address] [id number] [facility] [place] [address] Sep, [facility] [address] [facility] [id number] [facility] [place] [address] Sep, [facility] [address] [id number] [place] [address] Sep, [facility] [address] [id number] [facility] [address] Sep, [facility] [address] [facility] [id number] [facility] [address] Sep, [facility] [address] [id number] [place] [address] Aug, [facility] [address] [id number] [place] [address] Aug, [facility] [address] [id number] [place] [address] Aug, [facility] [address] [facility] [id number] [place] [address] Aug, [facility] [address] [id number] [place] [address] Aug, [facility] [address] [id number] [place] [address] Aug, [facility] [address] [id number] [place] [address] Jul, [facility] [address] [facility] [id number] [place] [address] Jul, [facility] [address] [id number] [place] [address] Jul, [facility] [place] [facility] [address] [id number] [place] [address] Jul, [facility] [place] [facility] [address] [id number] [place] [address] Jul, [facility] [place] [facility] [address] [facility] [id number] [facility] [address] Jul, [facility] [place] [facility] [address] [id number] [facility] [place] [address] Jul, [facility] [place] [facility] [address] [id number] [place] [address] Jul, [facility] [place] [facility] [address] [id number] [place] [address] Jul, [facility] [place] [facility] [address] [id number] [place] [address] Jul, [facility] [place] [facility] [address] [id number] [place] [address] Jun, [facility] [place] [facility] [address] [id number] [place] [address] Jun, [facility] [place] [facility] [address] [id number] [place] [address] Jun, [facility] [place] [facility] [address] [id number] [place] [address] Jun, [facility] [place] [facility] [address] [id number] [place] [address] Jun, [facility] [place] [facility] [address] [id number] [place] [address] Jun, [facility] [place] [facility] [address] [id number] [place] [address] Jun, [facility] [place] [facility] [address] [id number] [place] [address] Jun, [facility] [place] [facility] [address] [id number] [place] [address] May, [facility] [place] [facility] [address] [id number] [place] [address] May, [facility] [place] [facility] [address] [id number] [place] [address] May, [facility] [place] [facility] [address] [id number] [place] [address] May, 2012 [facility] [place] [facility] [address] [id number] [place] [address] May, [facility] [place] [facility] [address] [id number] [place] [address] May, [facility] [place] [facility] [address] [id number] [place] [address] May, [facility] [place] [facility] [address] [id number] [place] [address] May, [facility] [place] [facility] [address] [id number] [place] [address] Apr, [facility] [place] [facility] [address] [id number] [place] [address] Apr, [facility] [place] [facility] [address] [id number] [place] [address] Apr, [facility] [place] [facility] [address] [id number] [place] [address] Apr, [facility] [place] [facility] [address] [id number] [place] [address] Apr, [facility] [place] [facility] [address] [id number] [place] [address] Apr, [facility] [place] [facility] [address] [id number] [place] [address] Mar, [facility] [place] [facility] [address] [id number] [place] [address] Mar, [facility] [place] [facility] [address] [id number] [place] [address] Mar, [facility] [place] [facility] [address] [id number] [place] [address] Mar, [facility] [place] [facility] [address] [id number] [place] [address] Mar, [facility] [place] [facility] [address] [id number] [place] [address] Mar, [facility] [place] [facility] [address] [id number] [place] [address] Mar, [facility] [place] [facility] [address] [id number] [place] [address] Feb, [facility] [place] [facility] [address] [id number] [place] [address] 30 Feb, 2012 [facility] [place] [facility] [address] [id number] [place] [address] Feb, [facility] [place] [facility] [address] [facility] [id number] [place] [address] Feb, 2012 [facility] [place] [facility] [address] [id number] [place] [address] Feb, [facility] [place] [facility] [address] [id number] [place] [address] Feb, [facility] [place] [facility] [address] [id number] [place] [address] Jan, [facility] [place] [facility] [address] [id number] [place] [address] Jan, [facility] [place] [facility] [address] [id number] [place] [address] Jan, [facility] [place] [facility] [address] [id number] [place] [address] Jan, [facility] [place] [facility] [address] [id number] [place] [address] Jan, [facility] [place] [facility] [address] [id number] [place] [address] Jan, [facility] [place] [facility] [address] [id number] [place] [address] Jan, [facility] [place] [facility] [address] [id number] [place] [address] Jan, [facility] [place] [facility] [address] [id number] [place] [address] Jan, [facility] [place] [facility] [address] [id number] [place] [address] 29 Dec, 2012 [facility] [place] [facility] [address] [id number] [facility] [address] Dec, 2012 [facility] [place] [facility] [address] [facility] [id number] [facility] [place] [address] Dec, 2012 [facility] [place] [facility] [address] [id number] [facility] [address] 18 Dec, 2012 [facility] [place] [facility] [address] [id number] [place] [address] 17 Dec, 2012 [facility] [place] [facility] [address] [facility] [id number] [facility] [address] 16 Dec, 2012 [facility] [place] [facility] [address] [id number] [facility] [place] [address] 15 Dec, 2012 [facility] [place] [facility] [address] [id number] [facility] [place] [address] 09 Dec, 2012 [facility] [place] [facility] [address] [id number] [facility] [place] [address] Dec, 2012 [facility] [place] [facility] [address] [id number] [facility] [place] [address] Dec, 2012 [facility] [place] [facility] [address] [id number] [facility] [place] [address] Dec, [facility] [place] [facility] [address] [id number] [place] [address] Dec, 2012 [facility] [place] [facility] [address] [id number] [place] [address] Dec, 2012 [facility] [place] [facility] [address] [id number] [facility] [place] [address] Nov, [facility] [place] [facility] [address] [id number] [place] [address] Nov, 2012 [facility] [place] [facility] [address] [id number] [place] [address] Nov, [facility] [place] [facility] [address] [id number] [place] [address] Nov, [facility] [place] [facility] [address] [facility] [id number] [facility] [place] [address] October, [facility] [place] [facility] [address] [id number] [place] [address] October, [facility] [place] [facility] [address] [id number] [place] [address] October, [facility] [place] [facility] [address] [id number] [place] [address] October, [facility] [place] [facility] [address] [id number] [facility] [place] [address] October, [facility] [place] [facility] [address] [id number] [facility] [place] [address] October, [facility] [place] [facility] [address] [id number] [place] [address] Sep, [facility] [place] [facility] [address] [id number] [place] [address] Sep, [facility] [place] [facility] [address] [id number] [place] [address] Sep, [facility] [place] [facility] [address] [id number] [place] [address] Sep, [facility] [place] [facility] [address] [id number] [place] [address] Sep, [facility] [place] [facility] [address] [id number] [place] [address] 16 Sep, 2012 [facility] [place] [facility] [address] [id number] [place] [address] Sep, [facility] [place] [facility] [address] [id number] [place] [address] Sep, [facility] [place] [facility] [address] [id number] [place] [address] Sep, [facility] [place] [facility] [address] [id number] [place] [address] Sep, [facility] [place] [facility] [address] [id number] [place] [address] Sep, [facility] [address] [id number] [place] [address] Aug, [facility] [place] [facility] [address] [id number] [place] [address] 25 Aug, 2012 [facility] [place] [facility] [address] [id number] [place] [address] Aug, [facility] [place] [facility] [address] [id number] [place] [address] Aug, [facility] [place] [facility] [address] [id number] [place] [address] 19 Aug, 2012 [facility] [address] [id number] [place] [address] 18 Aug, 2012 [facility] [place] [facility] [address] [id number] [place] [address] 17 Aug, 2012 [facility] [address] [id number] [place] [address] 15 Aug, 2012 [facility] [place] [facility] [address] [id number] [place] [address] 15 Aug, 2012 [facility] [place] [facility] [address] [id number] [place] [address] Aug, [facility] [place] [facility] [address] [id number] [place] [address] Aug, [facility] [place] [facility] [address] [id number] [place] [address] 07 Aug, 2012 [facility] [place] [facility] [address] [id number] [place] [address] 27 Jul, 2012 [facility] [place] [facility] [address] [id number] [place] [address] Jul, [facility] [place] [facility] [address] [id number] [place] [address] 26 Jul, 2012 [facility] [place] [facility] [address] [id number] [place] [address] 22 Jul, 2012 [facility] [place] [facility] [address] [id number] [place] [address] Jul, 2012 [facility] [address] [id number] [place] [address] Jul, 2012 [facility] [place] [facility] [address] [id number] [place] [address] Jul, 2012 [facility] [place] [facility] [address] [id number] [place] [address] Jul, [facility] [place] [facility] [address] [id number] [place] [address] Jul, [facility] [place] [facility] [address] [id number] [place] [address] Jul, [facility] [place] [facility] [address] [id number] [place] [address] May, [facility] [id number] [id number] May, [facility] [place] [facility] [id number] [place] [address] May, [facility] [place] [facility] [address] [id number] [place] [address] May, [facility] [place] [facility] [id number] [place] [address] May, [facility] [place] [facility] [id number] [place] [address] Apr, [facility] [place] [address] [id number] [id number] Apr, [facility] [place] [facility] [id number] [place] [address] Apr, [facility] [place] [facility] [id number] [place] [address] Mar, [facility] [id number] [id number] Mar, [facility] [place] [facility] [id number] [place] [address] Mar, [facility] [place] [id number] [place] [id number] 13 Feb, 2012 [facility] [place] [facility] [address] [id number] [place] [address] Feb, [facility] [place] [facility] [address] [id number] [place] [address] Feb, [facility] [address] [id number] [id number] 10 Feb, 2012 [facility] [address] [id number] [id number] 07 Feb, 2012 [facility] [address] [id number] [id number] Jan, [facility] [place] [facility] [id number] [place] [address] Jan, [facility] [address] [id number] [id number] Jan, [facility] [id number] [id number] Jan, [facility] [id number] [id number] Jan, [facility] [place] [facility] [address] [id number] [place] [address] Jan, [facility] [place] [facility] [address] [id number] [place] [address] Jan, [facility] [place] [facility] [id number] [place] [address] Aug, [facility] [address] [facility] [id number] Aug, [facility] [place] [facility] [address] [id number] [place] [address] Jul, [facility] [place] [facility] [id number] [place] [address] Jul, [facility] [place] [facility] [id number] [place] [address] Jul, [facility] [address] [id number] [id number] Jul, [facility] [place] [facility] [address] [id number] [place] [address] Jul, [facility] [address] [id number] [id number] Jul, [facility] [place] [facility] [id number] [place] [address] Jul, [facility] [place] [address] [facility] [id number] Jul, [facility] [place] [address] [facility] [id number] Jul, [facility] [place] [address] [facility] [id number] Jul, [facility] [place] [facility] [id number] [place] [address] May, [facility] [place] [facility] [id number] [place] [address] May, [facility] [place] [facility] [id number] [place] [address] May, [facility] [place] [facility] [id number] [place] [address] Apr, [facility] [place] [facility] [id number] [place] [address] Jan, [facility] [place] [facility] [id number] [place] [address] Jan, [facility] [place] [facility] [id number] [place] [address] Dec, [facility] [place] [facility] [id number] [place] [address] Dec, [facility] [place] [facility] [id number] [place] [address] 16 May, 2009 [facility] [place] [facility] [id number] [place] [address] Mar, [facility] [place] [facility] [id number] [place] [address] Mar, [facility] [place] [facility] [address] [facility] [id number] [place] [address] 14 Jan, 2009 IMMUNIZATIONS No Known Immunizations SOCIAL HISTORY Never Assessed REASON FOR VISIT PLAN OF CARE VITAL SIGNS MEDICATIONS Unknown Medications RESULTS No Results PROCEDURES Procedure Date Ordered Result Body Site URINALYSIS, AUTO, W/O SCOPE November 25, 2013 INSTRUCTIONS MEDICATIONS ADMINISTERED No Known Medications [...]
--- OUTSIDE RECORDS SUMMARY | 2020-01-28 12:36 | XMS REPORT ---
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 Z79.01 Active 071148926 Problem History of venous thromboembolism V12.51 Active 042731899 Problem Cellulitis of unspecified part of limb L03.119 Active 210163744 Problem Gastroesophageal reflux disease without esophagitis K21.9 Active 850931739 Problem History of pulmonary embolism Z86.711 Active 051111659 Problem Pseudotumor cerebri G93.2 Active 10575063 Problem History of DVT (deep vein thrombosis) Z86.718 Active 238808798 ALLERGIES No Information ENCOUNTERS Encounter Location Date Diagnosis [place] [address] [address] Apr, manager 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) use of 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 Z79.01 [place] [address] [address] Apr, alf 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 Z 79.01 [place] [address] [address] Apr, Cellulitis of unspecified part of limb L 03.119 ; Allergic contact dermatitis due to adhesives L23.1 and Chronic pain syndrome G89.4 [place] [address] [address] Apr, [place] [address] [address] Apr, manager terminal 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 Z 79.01 ; Cellulitis of unspecified part of limb L03.119 ; Chronic pain syndrome G89.4 and Anxiety F41.9 [place] [address] [address] Apr, [place] [address] [address] Apr, [place] [address] [address] Mar, [place] [address] [address] Mar, [address] [address] Mar, Sore throat J02.9 ; Gastroesophageal ref lux disease without esophagitis K21.9 ; Pseudotumor cerebri G93.2 ; Chronic pain syndrome G89.4 ; Choriocarcinoma C58 ; History of pulmonary embolism Z86.711 ; History of DVT (deep vein thrombosis) Z86.718 ; Anxiety F41.9 and Tachycardia R00.[address] [address] Feb, Anxiety 300.00 and Chronic pain 338.[address] [address] Feb, [place] [address] [address] Feb, [place] [address] [address] Jan, manager terminal 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 t herapy V58.61 and Dysuria 788.[address] [address] Jan, Dysuria 788.[address] [address] Jan, Anxiety 300.00 and Chronic pain 338.29 [place] [address] [address] Jan, [place] [address] [address] Jan, [place] [address] [address] Jan, [place] [address] [address] Dec, Weakness 780.79 [place] [address] [address] Dec, manager terminal 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 t herapy V58.61 [place] [address] [address] Dec, Palpitations 785.1 ; Tremor 781.0 ; Weak ness 780.79 ; manager terminal 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 therapy V58.61 and Yeast vaginitis 112.1 [place] [address] [address] Dec, [place] [address] [address] Dec, Cervicalgia 723.1 ; Tachycardia 785.0 ; Pseudotumor cerebri 348.2 and History of venous thromboembolism V12.51 [place] [address] [address] Nov, [place] [address] [address] Nov, [place] [address] [address] Nov, Tachycardia 785.0 ; Pseudotumor cerebri 348.2 ; Anxiety 300.00 and History of venous thromboembolism V12.51 [place] [address] [address] Nov, [place] [address] [address] Nov, [facility] [address] [id number] [place] [address] 16 Nov, 2014 [facility] [address] [place] [id number] [place] [address] 12 Nov, 2014 [facility] [address] [id number] [place] [address] Nov, [facility] [address] [place] [id number] [place] [address] 08 Nov, 2014 [facility] [address] [id number] [place] [address] Nov, [facility] [address] [place] [id number] [place] [address] October, [facility] [address] [place] [id number] [place] [address] October, [facility] [address] [place] [id number] [place] [address] October, Pain in thoracic spine 724.1 and Tachyca rdia 785.0 [facility] [address] [place] [id number] [place] [address] October, [facility] [address] [place] [id number] [place] [address] October, [facility] [address] [place] [id number] [place] [address] 14 Sep, 2014 [facility] [address] [place] [id number] [place] [address] Sep, [facility] [address] [place] [id number] [place] [address] Aug, [facility] [address] [place] [id number] [place] [address] Aug, [facility] [address] [id number] [place] [address] Aug, [facility] [address] [place] [id number] [place] [address] Aug, [facility] [address] [id number] [place] [address] Aug, 2014 [facility] [address] [id number] [place] [address] Aug, 2014 [facility] [address] [id number] [place] [address] Aug, 2014 [facility] [address] [id number] [place] [address] Aug, 2014 [facility] [address] [id number] [place] [address] Aug, 2014 [facility] [address] [id number] [place] [address] Aug, 2014 [facility] [address] [id number] [place] [address] Aug, 2014 [facility] [address] [id number] [place] [address] Aug, 2014 [facility] [address] [id number] [place] [address] Jul, 2014 [facility] [address] [id number] [place] [address] Jul, 2014 [facility] [address] [id number] [place] [address] Jul, 2014 [facility] [address] [id number] [place] [address] Jul, 2014 [facility] [address] [id number] [place] [address] Jul, 2014 [facility] [address] [id number] [place] [address] Jul, 2014 [facility] [address] [id number] [place] [address] Jul, 2014 [facility] [address] [id number] [place] [address] Jul, 2014 [facility] [address] [id number] [place] [address] 20 Jul, 2014 [facility] [address] [id number] [place] [address] 20 Jul, 2014 [facility] [address] [id number] [place] [address] 19 Jul, 2014 [facility] [address] [id number] [place] [address] 19 Jul, 2014 [facility] [address] [id number] [place] [address] 17 Jul, 2014 [facility] [address] [id number] [place] [address] 17 Jul, 2014 [facility] [address] [id number] [place] [address] 16 Jul, 2014 [facility] [address] [id number] [place] [address] 16 Jul, 2014 [facility] [address] [id number] [place] [address] 16 Jul, 2014 [facility] [address] [id number] [place] [address] 16 Jul, 2014 [facility] [address] [id number] [place] [address] 13 Jul, 2014 [facility] [address] [id number] [place] [address] 13 Jul, 2014 [facility] [address] [id number] [place] [address] 13 Jul, 2014 [facility] [address] [id number] [place] [address] 13 Jul, 2014 [facility] [address] [id number] [place] [address] 12 Jul, 2014 [facility] [address] [id number] [place] [address] 12 Jul, 2014 [facility] [address] [id number] [facility] [place] [place] [address] Jul, [facility] [address] [facility] [id number] [place] [address] Jul, [facility] [address] [id number] [place] [address] Jul, [facility] [address] [id number] [place] [address] Jul, [facility] [address] [id number] [place] [address] Jul, [facility] [address] [id number] [place] [address] Jul, [facility] [address] [id number] [place] [address] Jun, [facility] [address] [id number] [place] [address] Jun, [facility] [address] [id number] [place] [address] Jun, [facility] [address] [id number] [place] [address] Jun, [facility] [address] [id number] [place] [address] Jun, [facility] [address] [id number] [place] [address] Jun, [facility] [address] [id number] [place] [address] Jun, [facility] [address] [id number] [place] [address] Jun, [facility] [address] [id number] [place] [address] Jun, [facility] [address] [id number] [place] [address] Jun, [facility] [address] [id number] [place] [address] Jun, [facility] [address] [id number] [place] [address] Jun, [facility] [address] [id number] [place] [address] Jun, [facility] [address] [id number] [place] [address] Jun, [facility] [address] [id number] [place] [address] Jun, [facility] [address] [id number] [place] [address] Jun, [facility] [address] [id number] [place] [address] Jun, [facility] [address] [id number] [place] [address] Jun, [facility] [address] [id number] [place] [address] Jun, [facility] [address] [id number] [place] [address] Jun, [facility] [address] [id number] [place] [address] May, [facility] [address] [id number] [place] [address] May, [facility] [address] [id number] [place] [address] May, [facility] [address] [id number] [place] [address] May, [facility] [address] [id number] [place] [address] May, [facility] [address] [id number] [place] [address] May, [facility] [address] [id number] [place] [address] May, [facility] [address] [id number] [place] [address] May, [facility] [address] [facility] [id number] [place] [address] May, [facility] [address] [id number] [place] [address] May, [facility] [address] [id number] [place] [address] May, [facility] [address] [id number] [place] [address] May, [facility] [address] [id number] [place] [address] 18 May, 2014 [facility] [address] [id number] [place] [address] 17 May, 2014 [facility] [address] [id number] [place] [address] 16 May, 2014 [facility] [address] [id number] [place] [address] 16 May, 2014 [facility] [address] [id number] [place] [address] 15 May, 2014 [facility] [address] [id number] [place] [address] 15 May, 2014 [facility] [address] [id number] [place] [address] 12 May, 2014 [facility] [address] [id number] [place] [address] May, [facility] [address] [id number] [place] [address] May, [facility] [address] [id number] [place] [address] May, [facility] [address] [id number] [place] [address] May, [facility] [address] [id number] [place] [address] May, [facility] [address] [id number] [place] [address] May, [facility] [address] [id number] [place] [address] May, [facility] [address] [id number] [place] [address] May, [facility] [address] [id number] [place] [address] May, [facility] [address] [id number] [place] [address] May, [facility] [address] [id number] [place] [address] May, [facility] [address] [id number] [place] [address] May, [facility] [address] [id number] [place] [address] May, [facility] [address] [id number] [place] [address] May, [facility] [address] [id number] [place] [address] May, [facility] [address] [id number] [place] [address] Apr, [facility] [address] [id number] [place] [address] Apr, [facility] [address] [id number] [place] [address] Apr, [facility] [address] [id number] [place] [address] Apr, [facility] [address] [id number] [place] [address] Apr, [facility] [address] [id number] [place] [address] Apr, [facility] [address] [id number] [place] [address] Apr, [facility] [address] [id number] [place] [address] Apr, [facility] [address] [id number] [place] [address] Apr, [facility] [address] [id number] [place] [address] Apr, [facility] [address] [id number] [place] [address] Mar, [facility] [address] [id number] [place] [address] Mar, [facility] [address] [id number] [place] [address] Mar, [facility] [address] [id number] [place] [address] Mar, [facility] [address] [id number] [place] [address] Mar, [facility] [address] [id number] [place] [address] 30 Mar, 2014 [facility] [address] [id number] [place] [address] Mar, [facility] [address] [id number] [place] [address] 17 Mar, 2013 [facility] [address] [id number] [place] [address] 15 Mar, 2014 [facility] [address] [id number] [place] [address] 15 Mar, 2014 [facility] [address] [id number] [place] [address] 15 Mar, 2014 [facility] [address] [id number] [place] [address] 15 Mar, 2014 [facility] [address] [id number] [place] [address] 09 Mar, 2014 [facility] [address] [id number] [place] [address] Mar, 2013 [facility] [address] [id number] [place] [address] Mar, 2013 [facility] [address] [id number] [place] [address] Mar, 2013 [facility] [address] [id number] [place] [address] Mar, 2013 [facility] [address] [id number] [place] [address] Mar, 2013 [facility] [address] [id number] [place] [address] Mar, 2013 [facility] [address] [id number] [place] [address] Mar, 2013 [facility] [address] [id number] [place] [address] 05 Sep, 2013 [facility] [address] [id number] [place] [address] 05 Sep, 2013 [facility] [address] [id number] [place] [address] 04 Sep, 2013 [facility] [address] [id number] [place] [address] 04 Sep, 2013 [facility] [address] [id number] [place] [address] 03 Sep, 2013 [facility] [address] [id number] [place] [address] 03 Sep, 2013 [facility] [address] [id number] [place] [address] Sep, 2013 [facility] [address] [id number] [place] [address] Sep, 2013 [facility] [address] [id number] [place] [address] Sep, 2013 [facility] [address] [id number] [place] [address] Sep, 2013 [facility] [address] [id number] [place] [address] Jan, [facility] [address] [id number] [place] [address] Jan, [facility] [address] [facility] [id number] [facility] [address] Jan, [facility] [address] [facility] [id number] [place] [address] Jan, [facility] [address] [facility] [id number] [place] [address] Jan, [facility] [address] [id number] [place] [address] Jan, [facility] [address] [facility] [id number] [place] [address] Jan, [facility] [address] [id number] [place] [address] Jan, [facility] [address] [id number] [place] [address] Jan, [facility] [address] [id number] [place] [address] Jan, [facility] [address] [facility] [id number] [place] [address] Jan, [facility] [address] [id number] [place] [address] Jan, [facility] [address] [id number] [place] [address] Dec, [facility] [address] [id number] [place] [address] Dec, [facility] [address] [id number] [place] [address] Dec, [facility] [address] [facility] [id number] [place] [address] Dec, [facility] [address] [id number] [place] [address] Dec, [facility] [address] [facility] [id number] [place] [address] 14 Dec, 2013 [facility] [address] [facility] [id number] [place] [address] Dec, 2013 [facility] [address] [facility] [id number] [place] [address] Dec, 2013 [facility] [address] [id number] [place] [address] Dec, 2013 [facility] [address] [facility] [id number] [place] [address] Dec, 2013 [facility] [address] [id number] [place] [address] Dec, 2013 [facility] [address] [id number] [place] [address] Dec, 2013 [facility] [address] [id number] [place] [address] Nov, 2013 [facility] [address] [id number] [place] [address] Nov, [facility] [address] [id number] [place] [address] Nov, [facility] [address] [id number] [place] [address] Nov, [facility] [address] [id number] [place] [address] Nov, [facility] [address] [id number] [place] [address] Nov, [facility] [address] [id number] [place] [address] Nov, [facility] [address] [id number] [place] [address] Nov, [facility] [address] [id number] [place] [address] Nov, [facility] [address] [id number] [place] [address] Nov, [facility] [address] [id number] [place] [address] Nov, [facility] [address] [id number] [place] [address] Nov, [facility] [address] [id number] [place] [address] Nov, [facility] [address] [id number] [place] [address] Nov, [facility] [address] [id number] [place] [address] October, [facility] [address] [id number] [place] [address] October, [facility] [address] [id number] [place] [address] October, [facility] [address] [id number] [place] [address] October, [facility] [address] [id number] [place] [address] October, [facility] [address] [id number] [place] [address] October, [facility] [address] [id number] [place] [address] October, [facility] [address] [id number] [place] [address] October, [facility] [place] [facility] [address] [id number] [place] [address] October, [facility] [place] [facility] [address] [id number] [place] [address] October, [facility] [place] [facility] [address] [id number] [place] [address] October, [facility] [place] [facility] [address] [id number] [place] [address] October, [facility] [place] [facility] [address] [id number] [place] [address] Sep, [facility] [place] [facility] [address] [id number] [place] [address] Sep, [facility] [place] [facility] [address] [facility] [id number] [place] [address] Sep, [facility] [place] [facility] [address] [id number] [place] [address] Sep, [facility] [place] [facility] [address] [id number] [place] [address] Sep, [facility] [place] [facility] [address] [facility] [id number] [place] [address] Sep, [facility] [place] [facility] [address] [id number] [place] [address] Aug, [facility] [place] [facility] [address] [id number] [place] [address] Aug, [facility] [place] [facility] [address] [id number] [place] [address] Aug, [facility] [place] [facility] [address] [facility] [id number] [place] [address] Aug, [facility] [place] [facility] [address] [id number] [place] [address] Aug, [facility] [place] [facility] [address] [id number] [place] [address] Aug, [facility] [place] [facility] [address] [id number] [place] [address] Jul, [facility] [place] [facility] [address] [facility] [id number] [place] [address] Jul, [facility] [place] [facility] [address] [id number] [place] [address] Jul, [facility] [place] [facility] [address] [id number] [place] [address] Jul, [facility] [place] [facility] [address] [id number] [place] [address] Jul, [facility] [place] [facility] [address] [facility] [id number] [place] [address] Jul, [facility] [place] [facility] [address] [id number] [place] [address] Jul, [facility] [place] [facility] [address] [id number] [place] [address] Jul, [facility] [place] [facility] [address] [id number] [place] [address] Jul, [facility] [place] [facility] [address] [id number] [place] [address] Jul, [facility] [place] [facility] [address] [id number] [place] [address] Jun, [facility] [place] [facility] [address] [id number] [place] [address] Jun, [facility] [place] [facility] [address] [id number] [place] [address] Jun, [facility] [place] [facility] [address] [id number] [place] [address] Jun, [facility] [place] [facility] [address] [id number] [place] [address] Jun, [facility] [place] [facility] [address] [id number] [place] [address] Jun, [facility] [place] [facility] [address] [id number] [place] [address] Jun, [facility] [place] [facility] [address] [id number] [place] [address] Jun, [facility] [place] [facility] [address] [id number] [place] [address] May, [facility] [place] [facility] [address] [id number] [place] [address] May, [facility] [place] [facility] [address] [id number] [place] [address] May, [facility] [place] [facility] [address] [id number] [place] [address] May, 2012 [facility] [place] [facility] [address] [id number] [place] [address] May, [facility] [place] [facility] [address] [id number] [place] [address] May, [facility] [place] [facility] [address] [id number] [place] [address] May, [facility] [place] [facility] [address] [id number] [place] [address] May, [facility] [place] [facility] [address] [id number] [place] [address] Apr, [facility] [place] [facility] [address] [id number] [place] [address] Apr, [facility] [place] [facility] [address] [id number] [place] [address] Apr, [facility] [place] [facility] [address] [id number] [place] [address] Apr, [facility] [place] [facility] [address] [id number] [place] [address] Apr, [facility] [place] [facility] [address] [id number] [place] [address] Apr, [facility] [place] [facility] [address] [id number] [place] [address] Mar, [facility] [place] [facility] [address] [id number] [place] [address] Mar, [facility] [place] [facility] [address] [id number] [place] [address] Mar, [facility] [place] [facility] [address] [id number] [place] [address] Mar, [facility] [place] [facility] [address] [id number] [place] [address] Mar, [facility] [place] [facility] [address] [id number] [place] [address] Mar, [facility] [place] [facility] [address] [id number] [place] [address] Mar, [facility] [place] [facility] [address] [id number] [place] [address] Feb, [facility] [place] [facility] [address] [id number] [place] [address] 30 Feb, 2012 [facility] [place] [facility] [address] [id number] [place] [address] Feb, [facility] [place] [facility] [address] [facility] [id number] [place] [address] Feb, 2012 [facility] [place] [facility] [address] [id number] [place] [address] Feb, [facility] [place] [facility] [address] [id number] [place] [address] Feb, [facility] [place] [facility] [address] [id number] [place] [address] Jan, [facility] [place] [facility] [address] [id number] [place] [address] Jan, [facility] [place] [facility] [address] [id number] [place] [address] Jan, [facility] [place] [facility] [address] [id number] [place] [address] Jan, [facility] [place] [facility] [address] [id number] [place] [address] Jan, [facility] [place] [facility] [address] [id number] [place] [address] Jan, [facility] [place] [facility] [address] [id number] [place] [address] Jan, [facility] [place] [facility] [address] [id number] [place] [address] Jan, [facility] [place] [facility] [address] [id number] [place] [address] Jan, [facility] [place] [facility] [address] [id number] [place] [address] 29 Dec, 2012 [facility] [place] [facility] [address] [id number] [place] [address] Dec, 2012 [facility] [place] [facility] [address] [facility] [id number] [place] [address] Dec, 2012 [facility] [place] [facility] [address] [id number] [place] [address] 18 Dec, 2012 [facility] [place] [facility] [address] [id number] [place] [address] 17 Dec, 2012 [facility] [place] [facility] [address] [facility] [id number] [place] [address] 16 Dec, 2012 [facility] [place] [facility] [address] [id number] [place] [address] 15 Dec, 2012 [facility] [place] [facility] [address] [id number] [place] [address] 09 Dec, 2012 [facility] [place] [facility] [address] [id number] [place] [address] Dec, 2012 [facility] [place] [facility] [address] [id number] [place] [address] Dec, 2012 [facility] [place] [facility] [address] [id number] [place] [address] Dec, [facility] [place] [facility] [address] [id number] [place] [address] Dec, 2012 [facility] [place] [facility] [address] [id number] [place] [address] Dec, 2012 [facility] [place] [facility] [address] [id number] [place] [address] Nov, [facility] [place] [facility] [address] [id number] [place] [address] Nov, 2012 [facility] [place] [facility] [address] [id number] [place] [address] Nov, [facility] [place] [facility] [address] [id number] [place] [address] Nov, [facility] [place] [facility] [address] [facility] [id number] [place] [address] October, [facility] [place] [facility] [address] [id number] [place] [address] October, [facility] [place] [facility] [address] [id number] [place] [address] October, [facility] [place] [facility] [address] [id number] [place] [address] October, [facility] [place] [facility] [address] [id number] [place] [address] October, [facility] [place] [facility] [address] [id number] [place] [address] October, [facility] [place] [facility] [address] [id number] [place] [address] Sep, [facility] [place] [facility] [address] [id number] [place] [address] Sep, [facility] [place] [facility] [address] [id number] [place] [address] Sep, [facility] [place] [facility] [address] [id number] [place] [address] Sep, [facility] [place] [facility] [address] [id number] [place] [address] Sep, [facility] [place] [facility] [address] [id number] [place] [address] 16 Sep, 2012 [facility] [place] [facility] [address] [id number] [place] [address] Sep, [facility] [place] [facility] [address] [id number] [place] [address] Sep, [facility] [place] [facility] [address] [id number] [place] [address] Sep, [facility] [place] [facility] [address] [id number] [place] [address] Sep, [facility] [place] [facility] [address] [id number] [place] [address] Sep, [facility] [address] [id number] [place] [address] Aug, [facility] [place] [facility] [address] [id number] [place] [address] 25 Aug, 2012 [facility] [place] [facility] [address] [id number] [place] [address] Aug, [facility] [place] [facility] [address] [id number] [place] [address] Aug, [facility] [place] [facility] [address] [id number] [place] [address] 19 Aug, 2012 [facility] [address] [id number] [place] [address] 18 Aug, 2012 [facility] [place] [facility] [address] [id number] [place] [address] 17 Aug, 2012 [facility] [address] [id number] [place] [address] 15 Aug, 2012 [facility] [place] [facility] [address] [id number] [place] [address] 15 Aug, 2012 [facility] [place] [facility] [address] [id number] [place] [address] Aug, [facility] [place] [facility] [address] [id number] [place] [address] Aug, [facility] [place] [facility] [address] [id number] [place] [address] 07 Aug, 2012 [facility] [place] [facility] [address] [id number] [place] [address] 27 Jul, 2012 [facility] [place] [facility] [address] [id number] [place] [address] Jul, [facility] [place] [facility] [address] [id number] [place] [address] 26 Jul, 2012 [facility] [place] [facility] [address] [id number] [place] [address] 22 Jul, 2012 [facility] [place] [facility] [address] [id number] [place] [address] Jul, 2012 [facility] [address] [id number] [place] [address] Jul, 2012 [facility] [place] [facility] [address] [id number] [place] [address] Jul, 2012 [facility] [place] [facility] [address] [id number] [place] [address] Jul, [facility] [place] [facility] [address] [id number] [place] [address] Jul, [facility] [place] [facility] [address] [id number] [place] [address] Jul, [facility] [place] [facility] [address] [id number] [place] [address] May, [facility] [id number] [id number] May, [facility] [place] [facility] [id number] [place] [address] May, [facility] [place] [facility] [address] [id number] [place] [address] May, [facility] [place] [facility] [id number] [place] [address] May, [facility] [place] [facility] [id number] [place] [address] Apr, [facility] [place] [address] [id number] [id number] Apr, [facility] [place] [facility] [id number] [place] [address] Apr, [facility] [place] [facility] [id number] [place] [address] Mar, [facility] [id number] [id number] Mar, [facility] [place] [facility] [id number] [place] [address] Mar, [facility] [place] [id number] [address] 13 Feb, 2012 [facility] [place] [facility] [address] [id number] [place] [address] Feb, [facility] [place] [facility] [address] [id number] [place] [address] Feb, [facility] [address] [id number] [id number] 10 Feb, 2012 [facility] [address] [id number] [id number] 07 Feb, 2012 [facility] [address] [id number] [id number] Jan, [facility] [place] [facility] [id number] [place] [address] Jan, [facility] [address] [id number] [id number] Jan, [facility] [id number] [address] Jan, [facility] [id number] [id number] Jan, [facility] [place] [facility] [address] [id number] [place] [address] Jan, [facility] [place] [facility] [address] [id number] [place] [address] Jan, [facility] [place] [facility] [id number] [place] [address] Aug, [facility] [address] [id number] [id number] Aug, [facility] [place] [facility] [address] [id number] [place] [address] Jul, [facility] [place] [facility] [id number] [place] [address] Jul, [facility] [place] [facility] [id number] [place] [address] Jul, [facility] [address] [id number] [id number] Jul, [facility] [place] [facility] [address] [id number] [place] [address] Jul, [facility] [address] [id number] [id number] Jul, [facility] [place] [facility] [id number] [place] [address] Jul, [facility] [place] [address] [facility] [id number] Jul, [facility] [place] [address] [id number] [id number] Jul, [facility] [place] [address] [facility] [id number] Jul, [facility] [place] [facility] [id number] [place] [address] May, [facility] [place] [facility] [id number] [place] [address] May, [facility] [place] [facility] [id number] [place] [address] May, [facility] [place] [facility] [id number] [place] [address] Apr, [facility] [place] [facility] [id number] [place] [address] Jan, [facility] [place] [facility] [id number] [place] [address] Jan, [facility] [place] [facility] [id number] [place] [address] Dec, [facility] [place] [facility] [address] [id number] [place] [address] Dec, [facility] [place] [facility] [id number] [place] [address] 16 May, 2009 [facility] [place] [facility] [id number] [place] [address] Mar, [facility] [place] [facility] [id number] [place] [address] Mar, [facility] [place] [facility] [address] [facility] [id number] [place] [address] 14 Jan, 2009 IMMUNIZATIONS No Known Immunizations SOCIAL HISTORY Never Assessed REASON FOR VISIT PLAN OF CARE VITAL SIGNS MEDICATIONS Unknown Medications RESULTS No Results PROCEDURES Procedure Date Ordered Result Body Site PROTHROMBIN TIME December 23, 2013 INSTRUCTIONS MEDICATIONS ADMINISTERED No Known Medications [...]
--- OUTSIDE RECORDS SUMMARY | 2020-01-28 12:37 | XMS REPORT ---
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 Name Role Phone CEZAR JIMI Unavailable PROBLEMS Type Condition ICD9-CM Code [id number] Code Onset Dates Condition S tatus SNOMED Code Problem Chronic pain syndrome G89.4 Active 194170821 Problem Sore throat J02.9 Active 11051028 3 Problem Choriocarcinoma C58 Active 1881 74460 Problem terminal gauger 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 Z79.01 Active 997203786 Problem History of venous thromboembolism V12.51 Active 909173696 Problem Cellulitis of unspecified part of limb L03.119 Active 458323830 Problem Gastroesophageal reflux disease without esophagitis K21.9 Active 064671010 Problem History of pulmonary embolism Z86.711 Active 680803106 Problem Pseudotumor cerebri G93.2 Active 14726710 Problem History of DVT (deep vein thrombosis) Z86.718 Active 031714182 ALLERGIES No Information ENCOUNTERS Encounter Location Date Diagnosis [place] [address] [address] Apr, terminal gauger (current) use of 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 Z79.01 [place] [address] [address] Apr, long-term 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 Z 79.01 [place] [address] [address] Apr, Cellulitis of unspecified part of limb L 03.119 ; Allergic contact dermatitis due to adhesives L23.1 and Chronic pain syndrome G89.4 [place] [address] [address] Apr, [place] [address] [address] Apr, terminal gauger 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 Z 79.01 ; Cellulitis of unspecified part of limb L03.119 ; Chronic pain syndrome G89.4 and Anxiety F41.9 [place] [address] [address] Apr, [place] [address] [address] Apr, [place] [address] [address] Mar, [place] [address] [address] Mar, [address] [address] Mar, Sore throat J02.9 ; Gastroesophageal ref lux disease without esophagitis K21.9 ; Pseudotumor cerebri G93.2 ; Chronic pain syndrome G89.4 ; Choriocarcinoma C58 ; History of pulmonary embolism Z86.711 ; History of DVT (deep vein thrombosis) Z86.718 ; Anxiety F41.9 and Tachycardia R00.[address] [address] Feb, Anxiety 300.00 and Chronic pain 338.[address] [address] Feb, [place] [address] [address] Feb, [place] [address] [address] Jan, terminal gauger 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 t herapy V58.61 and Dysuria 788.[address] [address] Jan, Dysuria 788.[address] [address] Jan, Anxiety 300.00 and Chronic pain 338.29 [place] [address] [address] Jan, [place] [address] [address] Jan, [place] [address] [address] Jan, [place] [address] [address] Dec, Weakness 780.79 [place] [address] [address] Dec, terminal gauger current use of anticoagulant t herapy V58.61 [place] [address] [address] Dec, Palpitations 785.1 ; Tremor 781.0 ; Weak ness 780.79 ; terminal gauger current use of anticoagulant therapy V58.61 and Yeast vaginitis 112.1 [place] [address] [address] Dec, [place] [address] [address] Dec, Cervicalgia 723.1 ; Tachycardia 785.0 ; Pseudotumor cerebri 348.2 and History of venous thromboembolism V12.51 [place] [address] [address] Nov, [place] [address] [address] Nov, [place] [address] [address] Nov, Tachycardia 785.0 ; Pseudotumor cerebri 348.2 ; Anxiety 300.00 and History of venous thromboembolism V12.51 [place] [address] [address] Nov, [place] [address] [address] Nov, [facility] [address] [id number] [place] [address] 16 Nov, 2014 [facility] [address] [place] [id number] [place] [address] 12 Nov, 2014 [facility] [address] [id number] [place] [address] Nov, [facility] [address] [place] [id number] [place] [address] 08 Nov, 2014 [facility] [address] [id number] [place] [address] Nov, [facility] [address] [place] [id number] [place] [address] October, [facility] [address] [place] [id number] [place] [address] October, [facility] [address] [place] [id number] [place] [address] October, Pain in thoracic spine 724.1 and Tachyca rdia 785.0 [facility] [address] [place] [id number] [place] [address] October, [facility] [address] [place] [id number] [place] [address] October, [facility] [address] [place] [id number] [place] [address] 14 Sep, 2014 [facility] [address] [place] [id number] [place] [address] Sep, [facility] [address] [place] [id number] [place] [address] Aug, [facility] [address] [place] [id number] [place] [address] Aug, [facility] [address] [id number] [place] [address] Aug, [facility] [address] [place] [id number] [place] [address] Aug, [facility] [address] [id number] [place] [address] Aug, 2014 [facility] [address] [id number] [place] [address] Aug, 2014 [facility] [address] [id number] [place] [address] Aug, 2014 [facility] [address] [id number] [place] [address] Aug, 2014 [facility] [address] [id number] [place] [address] Aug, 2014 [facility] [address] [id number] [place] [address] Aug, 2014 [facility] [address] [id number] [place] [address] Aug, 2014 [facility] [address] [id number] [place] [address] Aug, 2014 [facility] [address] [id number] [place] [address] Jul, 2014 [facility] [address] [id number] [place] [address] Jul, 2014 [facility] [address] [id number] [place] [address] Jul, 2014 [facility] [address] [id number] [place] [address] Jul, 2014 [facility] [address] [id number] [place] [address] Jul, 2014 [facility] [address] [id number] [place] [address] Jul, 2014 [facility] [address] [id number] [place] [address] Jul, 2014 [facility] [address] [id number] [place] [address] Jul, 2014 [facility] [address] [id number] [place] [address] 20 Jul, 2014 [facility] [address] [id number] [place] [address] 20 Jul, 2014 [facility] [address] [id number] [place] [address] 19 Jul, 2014 [facility] [address] [id number] [place] [address] 19 Jul, 2014 [facility] [address] [id number] [place] [address] 17 Jul, 2014 [facility] [address] [id number] [place] [address] 17 Jul, 2014 [facility] [address] [id number] [place] [address] 16 Jul, 2014 [facility] [address] [id number] [place] [address] 16 Jul, 2014 [facility] [address] [id number] [place] [address] 16 Jul, 2014 [facility] [address] [id number] [place] [address] 16 Jul, 2014 [facility] [address] [id number] [place] [address] 13 Jul, 2014 [facility] [address] [id number] [place] [address] 13 Jul, 2014 [facility] [address] [id number] [place] [address] 13 Jul, 2014 [facility] [address] [id number] [place] [address] 13 Jul, 2014 [facility] [address] [id number] [place] [address] 12 Jul, 2014 [facility] [address] [id number] [place] [address] 12 Jul, 2014 [facility] [address] [id number] [facility] [place] [address] Jul, [facility] [address] [facility] [id number] [place] [address] Jul, [facility] [address] [id number] [place] [address] Jul, [facility] [address] [id number] [place] [address] Jul, [facility] [address] [id number] [place] [address] Jul, [facility] [address] [id number] [place] [address] Jul, [facility] [address] [id number] [place] [address] Jun, [facility] [address] [id number] [place] [address] Jun, [facility] [address] [id number] [place] [address] Jun, [facility] [address] [id number] [place] [address] Jun, [facility] [address] [id number] [place] [address] Jun, [facility] [address] [id number] [place] [address] Jun, [facility] [address] [id number] [place] [address] Jun, [facility] [address] [id number] [place] [address] Jun, [facility] [address] [id number] [place] [address] Jun, [facility] [address] [id number] [place] [address] Jun, [facility] [address] [id number] [place] [address] Jun, [facility] [address] [id number] [place] [address] Jun, [facility] [address] [id number] [place] [address] Jun, [facility] [address] [id number] [place] [address] Jun, [facility] [address] [id number] [place] [address] Jun, [facility] [address] [id number] [place] [address] Jun, [facility] [address] [id number] [place] [address] Jun, [facility] [address] [id number] [place] [address] Jun, [facility] [address] [id number] [place] [address] Jun, [facility] [address] [id number] [place] [address] Jun, [facility] [address] [id number] [place] [address] May, [facility] [address] [id number] [place] [address] May, [facility] [address] [id number] [place] [address] May, [facility] [address] [id number] [place] [address] May, [facility] [address] [id number] [place] [address] May, [facility] [address] [id number] [place] [address] May, [facility] [address] [id number] [place] [address] May, [facility] [address] [id number] [place] [address] May, [facility] [address] [facility] [id number] [place] [address] May, [facility] [address] [id number] [place] [address] May, [facility] [address] [id number] [place] [address] May, [facility] [address] [id number] [place] [address] May, [facility] [address] [id number] [place] [address] 18 May, 2014 [facility] [address] [id number] [place] [address] 17 May, 2014 [facility] [address] [id number] [place] [address] 16 May, 2014 [facility] [address] [id number] [place] [address] 16 May, 2014 [facility] [address] [id number] [place] [address] 15 May, 2014 [facility] [address] [id number] [place] [address] 15 May, 2014 [facility] [address] [id number] [place] [address] 12 May, 2014 [facility] [address] [id number] [place] [address] May, [facility] [address] [id number] [place] [address] May, [facility] [address] [id number] [place] [address] May, [facility] [address] [id number] [place] [address] May, [facility] [address] [id number] [place] [address] May, [facility] [address] [id number] [place] [address] May, [facility] [address] [id number] [place] [address] May, [facility] [address] [id number] [place] [address] May, [facility] [address] [id number] [place] [address] May, [facility] [address] [id number] [place] [address] May, [facility] [address] [id number] [place] [address] May, [facility] [address] [id number] [place] [address] May, [facility] [address] [id number] [place] [address] May, [facility] [address] [id number] [place] [address] May, [facility] [address] [id number] [place] [address] May, [facility] [address] [id number] [place] [address] Apr, [facility] [address] [id number] [place] [address] Apr, [facility] [address] [id number] [place] [address] Apr, [facility] [address] [id number] [place] [address] Apr, [facility] [address] [id number] [place] [address] Apr, [facility] [address] [id number] [place] [address] Apr, [facility] [address] [id number] [place] [address] Apr, [facility] [address] [id number] [place] [address] Apr, [facility] [address] [id number] [place] [address] Apr, [facility] [address] [id number] [place] [address] Apr, [facility] [address] [id number] [place] [address] Mar, [facility] [address] [id number] [place] [address] Mar, [facility] [address] [id number] [place] [address] Mar, [facility] [address] [id number] [place] [address] Mar, [facility] [address] [id number] [place] [address] Mar, [facility] [address] [id number] [place] [address] 30 Mar, 2014 [facility] [address] [id number] [place] [address] Mar, [facility] [address] [id number] [place] [address] 17 Mar, 2013 [facility] [address] [id number] [place] [address] 15 Mar, 2014 [facility] [address] [id number] [place] [address] 15 Mar, 2014 [facility] [address] [id number] [place] [address] 15 Mar, 2014 [facility] [address] [id number] [place] [address] 15 Mar, 2014 [facility] [address] [id number] [place] [address] 09 Mar, 2014 [facility] [address] [id number] [place] [address] Mar, 2013 [facility] [address] [id number] [place] [address] Mar, 2013 [facility] [address] [id number] [place] [address] Mar, 2013 [facility] [address] [id number] [place] [address] Mar, 2013 [facility] [address] [id number] [place] [address] Mar, 2013 [facility] [address] [id number] [place] [address] Mar, 2013 [facility] [address] [id number] [place] [address] Mar, 2013 [facility] [address] [id number] [place] [address] 05 Sep, 2013 [facility] [address] [id number] [place] [address] 05 Sep, 2013 [facility] [address] [id number] [place] [address] 04 Sep, 2013 [facility] [address] [id number] [place] [address] 04 Sep, 2013 [facility] [address] [id number] [place] [address] 03 Sep, 2013 [facility] [address] [id number] [place] [address] 03 Sep, 2013 [facility] [address] [id number] [place] [address] Sep, 2013 [facility] [address] [id number] [place] [address] Sep, 2013 [facility] [address] [id number] [place] [address] Sep, 2013 [facility] [address] [id number] [place] [address] Sep, 2013 [facility] [address] [id number] [facility] [place] [address] Jan, [facility] [address] [id number] [facility] [place] [address] Jan, [facility] [address] [facility] [id number] [facility] [place] [address] Jan, [facility] [address] [facility] [id number] [place] [address] Jan, [facility] [address] [facility] [id number] [facility] [place] [address] Jan, [facility] [address] [id number] [facility] [place] [address] Jan, [facility] [address] [facility] [id number] [place] [address] Jan, [facility] [address] [id number] [place] [address] Jan, [facility] [address] [id number] [place] [address] Jan, [facility] [address] [id number] [place] [address] Jan, [facility] [address] [facility] [id number] [place] [address] Jan, [facility] [address] [id number] [place] [address] Jan, [facility] [address] [id number] [place] [address] Dec, [facility] [address] [id number] [place] [address] Dec, [facility] [address] [id number] [place] [address] Dec, [facility] [address] [facility] [id number] [place] [address] Dec, [facility] [address] [id number] [place] [address] Dec, [facility] [address] [facility] [id number] [place] [address] 14 Dec, 2013 [facility] [address] [facility] [id number] [place] [address] Dec, 2013 [facility] [address] [facility] [id number] [place] [address] Dec, 2013 [facility] [address] [id number] [place] [address] Dec, 2013 [facility] [address] [facility] [id number] [place] [address] Dec, 2013 [facility] [address] [id number] [place] [address] Dec, 2013 [facility] [address] [id number] [place] [address] Dec, 2013 [facility] [address] [id number] [place] [address] Nov, 2013 [facility] [address] [id number] [place] [address] Nov, [facility] [address] [id number] [place] [address] Nov, [facility] [address] [id number] [place] [address] Nov, [facility] [address] [id number] [place] [address] Nov, [facility] [address] [id number] [place] [address] Nov, [facility] [address] [id number] [place] [address] Nov, [facility] [address] [id number] [place] [address] Nov, [facility] [address] [id number] [place] [address] Nov, [facility] [address] [id number] [place] [address] Nov, [facility] [address] [id number] [place] [address] Nov, [facility] [address] [id number] [place] [address] Nov, [facility] [address] [id number] [place] [address] Nov, [facility] [address] [id number] [place] [address] Nov, [facility] [address] [id number] [place] [address] October, [facility] [address] [id number] [place] [address] October, [facility] [address] [id number] [place] [address] October, [facility] [address] [id number] [place] [address] October, [facility] [address] [id number] [place] [address] October, [facility] [address] [id number] [place] [address] October, [facility] [address] [id number] [place] [address] October, [facility] [address] [id number] [place] [address] October, [facility] [address] [id number] [place] [address] October, [facility] [address] [id number] [place] [address] October, [facility] [address] [id number] [place] [address] October, [facility] [address] [id number] [place] [address] October, [facility] [address] [id number] [facility] [place] [address] Sep, [facility] [address] [id number] [facility] [place] [address] Sep, [facility] [address] [facility] [id number] [facility] [place] [address] Sep, [facility] [address] [id number] [place] [address] Sep, [facility] [address] [id number] [facility] [place] [address] Sep, [facility] [address] [facility] [id number] [facility] [place] [address] Sep, [facility] [address] [id number] [place] [address] Aug, [facility] [address] [id number] [place] [address] Aug, [facility] [address] [id number] [place] [address] Aug, [facility] [address] [facility] [id number] [place] [address] Aug, [facility] [address] [id number] [place] [address] Aug, [facility] [address] [id number] [place] [address] Aug, [facility] [address] [id number] [place] [address] Jul, [facility] [address] [facility] [id number] [place] [address] Jul, [facility] [address] [id number] [place] [address] Jul, [facility] [address] [id number] [place] [address] Jul, [facility] [address] [id number] [place] [address] Jul, [facility] [address] [facility] [id number] [facility] [place] [address] Jul, [facility] [place] [facility] [address] [id number] [facility] [place] [address] Jul, [facility] [place] [facility] [address] [id number] [place] [address] Jul, [facility] [place] [facility] [address] [id number] [place] [address] Jul, [facility] [place] [facility] [address] [id number] [place] [address] Jul, [facility] [place] [facility] [address] [id number] [place] [address] Jun, [facility] [place] [facility] [address] [id number] [place] [address] Jun, [facility] [place] [facility] [address] [id number] [place] [address] Jun, [facility] [place] [facility] [address] [id number] [place] [address] Jun, [facility] [place] [facility] [address] [id number] [place] [address] Jun, [facility] [place] [facility] [address] [id number] [place] [address] Jun, [facility] [place] [facility] [address] [id number] [place] [address] Jun, [facility] [place] [facility] [address] [id number] [place] [address] Jun, [facility] [place] [facility] [address] [id number] [place] [address] May, [facility] [place] [facility] [address] [id number] [place] [address] May, [facility] [place] [facility] [address] [id number] [place] [address] May, [facility] [place] [facility] [address] [id number] [place] [address] May, 2012 [facility] [place] [facility] [address] [id number] [place] [address] May, [facility] [place] [facility] [address] [id number] [place] [address] May, [facility] [place] [facility] [address] [id number] [place] [address] May, [facility] [place] [facility] [address] [id number] [place] [address] May, [facility] [place] [facility] [address] [id number] [place] [address] Apr, [facility] [place] [facility] [address] [id number] [place] [address] Apr, [facility] [place] [facility] [address] [id number] [place] [address] Apr, [facility] [place] [facility] [address] [id number] [place] [address] Apr, [facility] [place] [facility] [address] [id number] [place] [address] Apr, [facility] [place] [facility] [address] [id number] [place] [address] Apr, [facility] [place] [facility] [address] [id number] [place] [address] Mar, [facility] [place] [facility] [address] [id number] [place] [address] Mar, [facility] [place] [facility] [address] [id number] [place] [address] Mar, [facility] [place] [facility] [address] [id number] [place] [address] Mar, [facility] [place] [facility] [address] [id number] [place] [address] Mar, [facility] [place] [facility] [address] [id number] [place] [address] Mar, [facility] [place] [facility] [address] [id number] [place] [address] Mar, [facility] [place] [facility] [address] [id number] [place] [address] Feb, [facility] [place] [facility] [address] [id number] [place] [address] 30 Feb, 2012 [facility] [place] [facility] [address] [id number] [place] [address] Feb, [facility] [place] [facility] [address] [facility] [id number] [place] [address] Feb, 2012 [facility] [place] [facility] [address] [id number] [place] [address] Feb, [facility] [place] [facility] [address] [id number] [place] [address] Feb, [facility] [place] [facility] [address] [id number] [place] [address] Jan, [facility] [place] [facility] [address] [id number] [place] [address] Jan, [facility] [place] [facility] [address] [id number] [place] [address] Jan, [facility] [place] [facility] [address] [id number] [place] [address] Jan, [facility] [place] [facility] [address] [id number] [place] [address] Jan, [facility] [place] [facility] [address] [id number] [place] [address] Jan, [facility] [place] [facility] [address] [id number] [place] [address] Jan, [facility] [place] [facility] [address] [id number] [place] [address] Jan, [facility] [place] [facility] [address] [id number] [place] [address] Jan, [facility] [place] [facility] [address] [id number] [place] [address] 29 Dec, 2012 [facility] [place] [facility] [address] [id number] [facility] [place] [address] Dec, 2012 [facility] [place] [facility] [address] [facility] [id number] [facility] [place] [address] Dec, 2012 [facility] [place] [facility] [address] [id number] [facility] [place] [address] 18 Dec, 2012 [facility] [place] [facility] [address] [id number] [place] [address] 17 Dec, 2012 [facility] [place] [facility] [address] [facility] [id number] [facility] [place] [address] 16 Dec, 2012 [facility] [place] [facility] [address] [id number] [facility] [place] [address] 15 Dec, 2012 [facility] [place] [facility] [address] [id number] [facility] [place] [address] 09 Dec, 2012 [facility] [place] [facility] [address] [id number] [facility] [place] [address] Dec, 2012 [facility] [place] [facility] [address] [id number] [facility] [place] [address] Dec, 2012 [facility] [place] [facility] [address] [id number] [facility] [place] [address] Dec, [facility] [place] [facility] [address] [id number] [place] [address] Dec, 2012 [facility] [place] [facility] [address] [id number] [place] [address] Dec, 2012 [facility] [place] [facility] [address] [id number] [facility] [place] [address] Nov, [facility] [place] [facility] [address] [id number] [place] [address] Nov, 2012 [facility] [place] [facility] [address] [id number] [place] [address] Nov, [facility] [place] [facility] [address] [id number] [place] [address] Nov, [facility] [place] [facility] [address] [facility] [id number] [facility] [place] [address] October, [facility] [place] [facility] [address] [id number] [place] [address] October, [facility] [place] [facility] [address] [id number] [place] [address] October, [facility] [place] [facility] [address] [id number] [place] [address] October, [facility] [place] [facility] [address] [id number] [facility] [place] [address] October, [facility] [place] [facility] [address] [id number] [facility] [place] [address] October, [facility] [place] [facility] [address] [id number] [place] [address] Sep, [facility] [place] [facility] [address] [id number] [place] [address] Sep, [facility] [place] [facility] [address] [id number] [place] [address] Sep, [facility] [place] [facility] [address] [id number] [place] [address] Sep, [facility] [place] [facility] [address] [id number] [place] [address] Sep, [facility] [place] [facility] [address] [id number] [place] [address] 16 Sep, 2012 [facility] [place] [facility] [address] [id number] [place] [address] Sep, [facility] [place] [facility] [address] [id number] [place] [address] Sep, [facility] [place] [facility] [address] [id number] [place] [address] Sep, [facility] [place] [facility] [address] [id number] [place] [address] Sep, [facility] [place] [facility] [address] [id number] [place] [address] Sep, [facility] [address] [id number] [place] [address] Aug, [facility] [place] [facility] [address] [id number] [place] [address] 25 Aug, 2012 [facility] [place] [facility] [address] [id number] [place] [address] Aug, [facility] [place] [facility] [address] [id number] [place] [address] Aug, [facility] [place] [facility] [address] [id number] [place] [address] 19 Aug, 2012 [facility] [address] [id number] [place] [address] 18 Aug, 2012 [facility] [place] [facility] [address] [id number] [place] [address] 17 Aug, 2012 [facility] [address] [id number] [place] [address] 15 Aug, 2012 [facility] [place] [facility] [address] [id number] [place] [address] 15 Aug, 2012 [facility] [place] [facility] [address] [id number] [place] [address] Aug, [facility] [place] [facility] [address] [id number] [place] [address] Aug, [facility] [place] [facility] [address] [id number] [place] [address] 07 Aug, 2012 [facility] [place] [facility] [address] [id number] [place] [address] 27 Jul, 2012 [facility] [place] [facility] [address] [id number] [place] [address] Jul, [facility] [place] [facility] [address] [id number] [place] [address] 26 Jul, 2012 [facility] [place] [facility] [address] [id number] [place] [address] 22 Jul, 2012 [facility] [place] [facility] [address] [id number] [place] [address] Jul, 2012 [facility] [address] [id number] [place] [address] Jul, 2012 [facility] [place] [facility] [address] [id number] [place] [address] Jul, 2012 [facility] [place] [facility] [address] [id number] [place] [address] Jul, [facility] [place] [facility] [address] [id number] [place] [address] Jul, [facility] [place] [facility] [address] [id number] [place] [address] Jul, [facility] [place] [facility] [address] [id number] [place] [address] May, [facility] [id number] [address] May, [facility] [place] [facility] [id number] [place] [address] May, [facility] [place] [facility] [address] [id number] [place] [address] May, [facility] [place] [facility] [id number] [place] [address] May, [facility] [place] [facility] [id number] [place] [address] Apr, [facility] [place] [address] [id number] [id number] Apr, [facility] [place] [facility] [id number] [place] [address] Apr, [facility] [place] [facility] [id number] [place] [address] Mar, [facility] [id number] [id number] Mar, [facility] [place] [facility] [id number] [place] [address] Mar, [facility] [place] [id number] [id number] 13 Feb, 2012 [facility] [place] [facility] [address] [id number] [place] [address] Feb, [facility] [place] [facility] [address] [id number] [place] [address] Feb, [facility] [address] [id number] [id number] 10 Feb, 2012 [facility] [address] [id number] [place] [id number] 07 Feb, 2012 [facility] [address] [id number] [place] [address] Jan, [facility] [place] [facility] [id number] [place] [address] Jan, [facility] [address] [id number] [place] [id number] Jan, [facility] [id number] [place] [id number] Jan, [facility] [id number] [id number] Jan, [facility] [place] [facility] [address] [id number] [place] [address] Jan, [facility] [place] [facility] [address] [id number] [place] [address] Jan, [facility] [place] [facility] [id number] [place] [address] Aug, [facility] [address] [id number] [id number] Aug, [facility] [place] [facility] [address] [id number] [place] [address] Jul, [facility] [place] [facility] [id number] [place] [address] Jul, [facility] [place] [facility] [id number] [place] [address] Jul, [facility] [address] [id number] [id number] Jul, [facility] [place] [facility] [address] [id number] [place] [address] Jul, [facility] [address] [id number] [id number] Jul, [facility] [place] [facility] [id number] [place] [address] Jul[facility] [place] [address] [facility] [id number] Jul, [facility] [place] [address] [id number] [id number] Jul, [facility] [place] [address] [id number] [id number] Jul, [facility] [place] [facility] [id number] [place] [address] May, [facility] [place] [facility] [id number] [place] [address] May, [facility] [place] [facility] [id number] [place] [address] May, [facility] [place] [facility] [id number] [place] [address] Apr, [facility] [place] [facility] [id number] [place] [address] Jan, [facility] [place] [facility] [id number] [place] [address] Jan, [facility] [place] [facility] [id number] [place] [address] Dec, [facility] [place] [facility] [address] [id number] [place] [address] Dec, [facility] [place] [facility] [id number] [place] [address] 16 May, 2009 [facility] [place] [facility] [id number] [place] [address] Mar, [facility] [place] [facility] [id number] [place] [address] Mar, [facility] [place] [facility] [address] [facility] [id number] [place] [address] Jan, IMMUNIZATIONS No Known Immunizations SOCIAL HISTORY [...]
--- OUTSIDE RECORDS SUMMARY | 2020-01-28 12:37 | XMS REPORT ---
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 707697036 Problem History of venous thromboembolism V12.51 Active 564575543 Problem Cellulitis of unspecified part of limb L03.119 Active 598732556 Problem Gastroesophageal reflux disease without esophagitis K21.9 Active 643442266 Problem History of pulmonary embolism Z86.711 Active 181713007 Problem Pseudotumor cerebri G93.2 Active 08182798 Problem History of DVT (deep vein thrombosis) Z86.718 Active 659848516 ALLERGIES No Information ENCOUNTERS Encounter Location Date Diagnosis [place] [address] [address] Apr, electric solderer (current) use of 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 Z79.01 [place] [address] [address] Apr, correction current use of anticoagulant Z 79.01 [place] [address] [address] Apr, Cellulitis of unspecified part of limb L 03.119 ; Allergic contact dermatitis due to adhesives L23.1 and Chronic pain syndrome G89.4 [place] [address] [address] Apr, [place] [address] [address] Apr, 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 Z 79.01 ; Cellulitis of unspecified part of limb L03.119 ; Chronic pain syndrome G89.4 and Anxiety F41.9 [place] [address] [address] Apr, [place] [address] [address] Apr, [place] [address] [address] Mar, [place] [address] [address] Mar, [address] [address] Mar, Sore throat J02.9 ; Gastroesophageal ref lux disease without esophagitis K21.9 ; Pseudotumor cerebri G93.2 ; Chronic pain syndrome G89.4 ; Choriocarcinoma C58 ; History of pulmonary embolism Z86.711 ; History of DVT (deep vein thrombosis) Z86.718 ; Anxiety F41.9 and Tachycardia R00.[address] [address] Feb, Anxiety 300.00 and Chronic pain 338.[address] [address] Feb, [place] [address] [address] Feb, [place] [address] [address] Jan, 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 t herapy V58.61 and Dysuria 788.[address] [address] Jan, Dysuria 788.[address] [address] Jan, Anxiety 300.00 and Chronic pain 338.29 [place] [address] [address] Jan, [place] [address] [address] Jan, [place] [address] [address] Jan, [place] [address] [address] Dec, Weakness 780.79 [place] [address] [address] Dec, 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 t herapy V58.61 [place] [address] [address] Dec, Palpitations 785.1 ; Tremor 781.0 ; Weak ness 780.79 ; 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 therapy V58.61 and Yeast vaginitis 112.1 [place] [address] [address] Dec, [place] [address] [address] Dec, Cervicalgia 723.1 ; Tachycardia 785.0 ; Pseudotumor cerebri 348.2 and History of venous thromboembolism V12.51 [place] [address] [address] Nov, [place] [address] [address] Nov, [place] [address] [address] Nov, Tachycardia 785.0 ; Pseudotumor cerebri 348.2 ; Anxiety 300.00 and History of venous thromboembolism V12.51 [place] [address] [address] Nov, [place] [address] [address] Nov, [facility] [address] [id number] [place] [address] 16 Nov, 2014 [facility] [address] [place] [id number] [place] [address] 12 Nov, 2014 [facility] [address] [id number] [place] [address] Nov, [facility] [address] [place] [id number] [place] [address] 08 Nov, 2014 [facility] [address] [id number] [place] [address] Nov, [facility] [address] [place] [id number] [place] [address] October, [facility] [address] [place] [id number] [place] [address] October, [facility] [address] [place] [id number] [place] [address] October, Pain in thoracic spine 724.1 and Tachyca rdia 785.0 [facility] [address] [place] [address] [id number] [place] [address] October, [facility] [address] [place] [id number] [place] [address] October, [facility] [address] [place] [address] [id number] [place] [address] 14 Sep, 2014 [facility] [address] [place] [id number] [place] [address] Sep, [facility] [address] [place] [id number] [place] [address] Aug, [facility] [address] [place] [id number] [place] [address] Aug, [facility] [address] [id number] [place] [address] Aug, [facility] [address] [place] [id number] [place] [address] Aug, [facility] [address] [id number] [place] [address] Aug, 2014 [facility] [address] [id number] [place] [address] Aug, 2014 [facility] [address] [id number] [place] [address] Aug, 2014 [facility] [address] [id number] [place] [address] Aug, 2014 [facility] [address] [id number] [place] [address] Aug, 2014 [facility] [address] [id number] [place] [address] Aug, 2014 [facility] [address] [id number] [place] [address] Aug, 2014 [facility] [address] [id number] [place] [address] Aug, 2014 [facility] [address] [id number] [place] [address] Jul, 2014 [facility] [address] [id number] [place] [address] Jul, 2014 [facility] [address] [id number] [place] [address] Jul, 2014 [facility] [address] [id number] [place] [address] Jul, 2014 [facility] [address] [id number] [place] [address] Jul, 2014 [facility] [address] [id number] [place] [address] Jul, 2014 [facility] [address] [id number] [place] [address] Jul, 2014 [facility] [address] [id number] [place] [address] Jul, 2014 [facility] [address] [id number] [place] [address] 20 Jul, 2014 [facility] [address] [id number] [place] [address] 20 Jul, 2014 [facility] [address] [id number] [place] [address] 19 Jul, 2014 [facility] [address] [id number] [place] [address] 19 Jul, 2014 [facility] [address] [id number] [place] [address] 17 Jul, 2014 [facility] [address] [id number] [place] [address] 17 Jul, 2014 [facility] [address] [id number] [place] [address] 16 Jul, 2014 [facility] [address] [id number] [place] [address] 16 Jul, 2014 [facility] [address] [id number] [place] [address] 16 Jul, 2014 [facility] [address] [id number] [place] [address] 16 Jul, 2014 [facility] [address] [id number] [place] [address] 13 Jul, 2014 [facility] [address] [id number] [place] [address] 13 Jul, 2014 [facility] [address] [id number] [place] [address] 13 Jul, 2014 [facility] [address] [id number] [place] [address] 13 Jul, 2014 [facility] [address] [id number] [place] [address] 12 Jul, 2014 [facility] [address] [id number] [place] [address] 12 Jul, 2014 [facility] [address] [id number] [place] [address] Jul, [facility] [address] [facility] [id number] [place] [address] Jul, [facility] [address] [id number] [place] [address] Jul, [facility] [address] [id number] [place] [address] Jul, [facility] [address] [id number] [place] [address] Jul, [facility] [address] [id number] [place] [address] Jul, [facility] [address] [id number] [place] [address] Jun, [facility] [address] [id number] [place] [address] Jun, [facility] [address] [id number] [place] [address] Jun, [facility] [address] [id number] [place] [address] Jun, [facility] [address] [id number] [place] [address] Jun, [facility] [address] [id number] [place] [address] Jun, [facility] [address] [id number] [place] [address] Jun, [facility] [address] [id number] [place] [address] Jun, [facility] [address] [id number] [place] [address] Jun, [facility] [address] [id number] [place] [address] Jun, [facility] [address] [id number] [place] [address] Jun, [facility] [address] [id number] [place] [address] Jun, [facility] [address] [id number] [place] [address] Jun, [facility] [address] [id number] [place] [address] Jun, [facility] [address] [id number] [place] [address] Jun, [facility] [address] [id number] [place] [address] Jun, [facility] [address] [id number] [place] [address] Jun, [facility] [address] [id number] [place] [address] Jun, [facility] [address] [id number] [place] [address] Jun, [facility] [address] [id number] [place] [address] Jun, [facility] [address] [id number] [place] [address] May, [facility] [address] [id number] [place] [address] May, [facility] [address] [id number] [place] [address] May, [facility] [address] [id number] [place] [address] May, [facility] [address] [id number] [place] [address] May, [facility] [address] [id number] [place] [address] May, [facility] [address] [id number] [place] [address] May, [facility] [address] [id number] [place] [address] May, [facility] [address] [facility] [id number] [place] [address] May, [facility] [address] [id number] [place] [address] May, [facility] [address] [id number] [place] [address] May, [facility] [address] [id number] [place] [address] May, [facility] [address] [id number] [place] [address] 18 May, 2014 [facility] [address] [id number] [place] [address] 17 May, 2014 [facility] [address] [id number] [place] [address] 16 May, 2014 [facility] [address] [id number] [place] [address] 16 May, 2014 [facility] [address] [id number] [place] [address] 15 May, 2014 [facility] [address] [id number] [place] [address] 15 May, 2014 [facility] [address] [id number] [place] [address] 12 May, 2014 [facility] [address] [id number] [place] [address] May, [facility] [address] [id number] [place] [address] May, [facility] [address] [id number] [place] [address] May, [facility] [address] [id number] [place] [address] May, [facility] [address] [id number] [place] [address] May, [facility] [address] [id number] [place] [address] May, [facility] [address] [id number] [place] [address] May, [facility] [address] [id number] [place] [address] May, [facility] [address] [id number] [place] [address] May, [facility] [address] [id number] [place] [address] May, [facility] [address] [id number] [place] [address] May, [facility] [address] [id number] [place] [address] May, [facility] [address] [id number] [place] [address] May, [facility] [address] [id number] [place] [address] May, [facility] [address] [id number] [place] [address] May, [facility] [address] [id number] [place] [address] Apr, [facility] [address] [id number] [place] [address] Apr, [facility] [address] [id number] [place] [address] Apr, [facility] [address] [id number] [place] [address] Apr, [facility] [address] [id number] [place] [address] Apr, [facility] [address] [id number] [place] [address] Apr, [facility] [address] [id number] [place] [address] Apr, [facility] [address] [id number] [place] [address] Apr, [facility] [address] [id number] [place] [address] Apr, [facility] [address] [id number] [place] [address] Apr, [facility] [address] [id number] [place] [address] Mar, [facility] [address] [id number] [place] [address] Mar, [facility] [address] [id number] [place] [address] Mar, [facility] [address] [id number] [place] [address] Mar, [facility] [address] [id number] [place] [address] Mar, [facility] [address] [id number] [place] [address] 30 Mar, 2014 [facility] [address] [id number] [place] [address] Mar, [facility] [address] [id number] [place] [address] 17 Mar, 2013 [facility] [address] [id number] [place] [address] 15 Mar, 2014 [facility] [address] [id number] [place] [address] 15 Mar, 2014 [facility] [address] [id number] [place] [address] 15 Mar, 2014 [facility] [address] [id number] [place] [address] 15 Mar, 2014 [facility] [address] [id number] [place] [address] 09 Mar, 2014 [facility] [address] [id number] [place] [address] Mar, 2013 [facility] [address] [id number] [place] [address] Mar, 2013 [facility] [address] [id number] [place] [address] Mar, 2013 [facility] [address] [id number] [place] [address] Mar, 2013 [facility] [address] [id number] [place] [address] Mar, 2013 [facility] [address] [id number] [place] [address] Mar, 2013 [facility] [address] [id number] [place] [address] Mar, 2013 [facility] [address] [id number] [place] [address] 05 Sep, 2013 [facility] [address] [id number] [place] [address] 05 Sep, 2013 [facility] [address] [id number] [place] [address] 04 Sep, 2013 [facility] [address] [id number] [place] [address] 04 Sep, 2013 [facility] [address] [id number] [place] [address] 03 Sep, 2013 [facility] [address] [id number] [place] [address] 03 Sep, 2013 [facility] [address] [id number] [place] [address] Sep, 2013 [facility] [address] [id number] [place] [address] Sep, 2013 [facility] [address] [id number] [place] [address] Sep, 2013 [facility] [address] [id number] [place] [address] Sep, 2013 [facility] [address] [id number] [facility] [place] [address] Jan, [facility] [address] [id number] [facility] [place] [address] Jan, [facility] [address] [facility] [id number] [facility] [place] [address] Jan, [facility] [address] [facility] [id number] [place] [address] Jan, [facility] [address] [facility] [id number] [facility] [place] [address] Jan, [facility] [address] [id number] [facility] [place] [address] Jan, [facility] [address] [facility] [id number] [place] [address] Jan, [facility] [address] [id number] [place] [address] Jan, [facility] [address] [id number] [place] [address] Jan, [facility] [address] [id number] [place] [address] Jan, [facility] [address] [facility] [id number] [place] [address] Jan, [facility] [address] [id number] [place] [address] Jan, [facility] [address] [id number] [place] [address] Dec, [facility] [address] [id number] [place] [address] Dec, [facility] [address] [id number] [place] [address] Dec, [facility] [address] [facility] [id number] [place] [address] Dec, [facility] [address] [id number] [place] [address] Dec, [facility] [address] [facility] [id number] [place] [address] 14 Dec, 2013 [facility] [address] [facility] [id number] [place] [address] Dec, 2013 [facility] [address] [facility] [id number] [place] [address] Dec, 2013 [facility] [address] [id number] [place] [address] Dec, 2013 [facility] [address] [facility] [place] [id number] [place] [address] Dec, 2013 [facility] [address] [id number] [place] [address] Dec, 2013 [facility] [address] [id number] [place] [address] Dec, 2013 [facility] [address] [id number] [place] [address] Nov, 2013 [facility] [address] [id number] [place] [address] Nov, [facility] [address] [id number] [place] [address] Nov, [facility] [address] [id number] [place] [address] Nov, [facility] [address] [id number] [place] [address] Nov, [facility] [address] [id number] [place] [address] Nov, [facility] [address] [id number] [place] [address] Nov, [facility] [address] [id number] [place] [address] Nov, [facility] [address] [id number] [place] [address] Nov, [facility] [address] [id number] [place] [address] Nov, [facility] [address] [id number] [place] [address] Nov, [facility] [address] [id number] [place] [address] Nov, [facility] [address] [id number] [place] [address] Nov, [facility] [address] [id number] [place] [address] Nov, [facility] [address] [id number] [place] [address] October, [facility] [address] [id number] [place] [address] October, [facility] [address] [id number] [place] [address] October, [facility] [address] [id number] [place] [address] October, [facility] [address] [id number] [place] [address] October, [facility] [address] [id number] [place] [address] October, [facility] [address] [id number] [place] [address] October, [facility] [address] [id number] [place] [address] October, [facility] [address] [id number] [place] [address] October, [facility] [address] [id number] [place] [address] October, [facility] [address] [id number] [place] [address] October, [facility] [address] [id number] [place] [address] October, [facility] [address] [id number] [facility] [place] [address] Sep, [facility] [address] [id number] [facility] [place] [address] Sep, [facility] [address] [facility] [place] [id number] [facility] [place] [address] Sep, [facility] [address] [id number] [place] [address] Sep, [facility] [address] [id number] [facility] [place] [address] Sep, [facility] [address] [facility] [place] [id number] [facility] [place] [address] Sep, [facility] [address] [id number] [place] [address] Aug, [facility] [address] [id number] [place] [address] Aug, [facility] [address] [id number] [place] [address] Aug, [facility] [address] [facility] [place] [id number] [place] [address] Aug, [facility] [address] [id number] [place] [address] Aug, [facility] [address] [id number] [place] [address] Aug, [facility] [address] [id number] [place] [address] Jul, [facility] [address] [facility] [place] [id number] [place] [address] Jul, [facility] [address] [id number] [place] [address] Jul, [facility] [address] [id number] [place] [address] Jul, [facility] [address] [id number] [place] [address] Jul, [facility] [address] [facility] [place] [id number] [facility] [place] [address] Jul, [facility] [address] [id number] [facility] [place] [address] Jul, [facility] [address] [id number] [place] [address] Jul, [facility] [address] [id number] [place] [address] Jul, [facility] [address] [id number] [place] [address] Jul, [facility] [address] [id number] [place] [address] Jun, [facility] [address] [id number] [place] [address] Jun, [facility] [address] [id number] [place] [address] Jun, [facility] [place] [facility] [address] [id number] [place] [address] Jun, [facility] [place] [facility] [address] [id number] [place] [address] Jun, [facility] [place] [facility] [address] [id number] [place] [address] Jun, [facility] [place] [facility] [address] [id number] [place] [address] Jun, [facility] [place] [facility] [address] [id number] [place] [address] Jun, [facility] [place] [facility] [address] [id number] [place] [address] May, [facility] [place] [facility] [address] [id number] [place] [address] May, [facility] [place] [facility] [address] [id number] [place] [address] May, [facility] [place] [facility] [address] [id number] [place] [address] May, 2012 [facility] [place] [facility] [address] [id number] [place] [address] May, [facility] [place] [facility] [address] [id number] [place] [address] May, [facility] [place] [facility] [address] [id number] [place] [address] May, [facility] [place] [facility] [address] [id number] [place] [address] May, [facility] [place] [facility] [address] [id number] [place] [address] Apr, [facility] [place] [facility] [address] [id number] [place] [address] Apr, [facility] [place] [facility] [address] [id number] [place] [address] Apr, [facility] [place] [facility] [address] [id number] [place] [address] Apr, [facility] [place] [facility] [address] [id number] [place] [address] Apr, [facility] [place] [facility] [address] [id number] [place] [address] Apr, [facility] [place] [facility] [address] [id number] [place] [address] Mar, [facility] [place] [facility] [address] [id number] [place] [address] Mar, [facility] [place] [facility] [address] [id number] [place] [address] Mar, [facility] [place] [facility] [address] [id number] [place] [address] Mar, [facility] [place] [facility] [address] [id number] [place] [address] Mar, [facility] [place] [facility] [address] [id number] [place] [address] Mar, [facility] [place] [facility] [address] [id number] [place] [address] Mar, [facility] [place] [facility] [address] [id number] [place] [address] Feb, [facility] [place] [facility] [address] [id number] [place] [address] 30 Feb, 2012 [facility] [place] [facility] [address] [id number] [place] [address] Feb, [facility] [place] [facility] [address] [facility] [place] [id number] [place] [address] Feb, 2012 [facility] [place] [facility] [address] [id number] [place] [address] Feb, [facility] [place] [facility] [address] [id number] [place] [address] Feb, [facility] [place] [facility] [address] [id number] [place] [address] Jan, [facility] [place] [facility] [address] [id number] [place] [address] Jan, [facility] [place] [facility] [address] [id number] [place] [address] Jan, [facility] [place] [facility] [address] [id number] [place] [address] Jan, [facility] [place] [facility] [address] [id number] [place] [address] Jan, [facility] [place] [facility] [address] [id number] [place] [address] Jan, [facility] [place] [facility] [address] [id number] [place] [address] Jan, [facility] [place] [facility] [address] [id number] [place] [address] Jan, [facility] [place] [facility] [address] [id number] [place] [address] Jan, [facility] [place] [facility] [address] [id number] [place] [address] 29 Dec, 2012 [facility] [place] [facility] [address] [id number] [facility] [place] [address] Dec, 2012 [facility] [place] [facility] [address] [facility] [place] [id number] [facility] [place] [address] Dec, 2012 [facility] [place] [facility] [address] [id number] [facility] [place] [address] 18 Dec, 2012 [facility] [place] [facility] [address] [id number] [place] [address] 17 Dec, 2012 [facility] [place] [facility] [address] [facility] [place] [id number] [facility] [place] [address] 16 Dec, 2012 [facility] [place] [facility] [address] [id number] [facility] [place] [address] 15 Dec, 2012 [facility] [place] [facility] [address] [id number] [facility] [place] [address] 09 Dec, 2012 [facility] [place] [facility] [address] [id number] [facility] [place] [address] Dec, 2012 [facility] [place] [facility] [address] [id number] [facility] [place] [address] Dec, 2012 [facility] [place] [facility] [address] [id number] [facility] [place] [address] Dec, [facility] [place] [facility] [address] [id number] [place] [address] Dec, 2012 [facility] [place] [facility] [address] [id number] [place] [address] Dec, 2012 [facility] [place] [facility] [address] [id number] [facility] [place] [address] Nov, [facility] [place] [facility] [address] [id number] [place] [address] Nov, 2012 [facility] [place] [facility] [address] [id number] [place] [address] Nov, [facility] [place] [facility] [address] [id number] [place] [address] Nov, [facility] [place] [facility] [address] [facility] [place] [id number] [facility] [place] [address] October, [facility] [place] [facility] [address] [id number] [place] [address] October, [facility] [place] [facility] [address] [id number] [place] [address] October, [facility] [place] [facility] [address] [id number] [place] [address] October, [facility] [place] [facility] [address] [id number] [facility] [place] [address] October, [facility] [place] [facility] [address] [id number] [facility] [place] [address] October, [facility] [place] [facility] [address] [id number] [place] [address] Sep, [facility] [place] [facility] [address] [id number] [place] [address] Sep, [facility] [place] [facility] [address] [id number] [place] [address] Sep, [facility] [place] [facility] [address] [id number] [place] [address] Sep, [facility] [place] [facility] [address] [id number] [place] [address] Sep, [facility] [place] [facility] [address] [id number] [place] [address] 16 Sep, 2012 [facility] [place] [facility] [address] [id number] [place] [address] Sep, [facility] [place] [facility] [address] [id number] [place] [address] Sep, [facility] [place] [facility] [address] [id number] [place] [address] Sep, [facility] [place] [facility] [address] [id number] [place] [address] Sep, [facility] [place] [facility] [address] [id number] [place] [address] Sep, [facility] [address] [id number] [place] [address] Aug, [facility] [place] [facility] [address] [id number] [place] [address] 25 Aug, 2012 [facility] [place] [facility] [address] [id number] [place] [address] Aug, [facility] [place] [facility] [address] [id number] [place] [address] Aug, [facility] [place] [facility] [address] [id number] [place] [address] 19 Aug, 2012 [facility] [address] [id number] [place] [address] 18 Aug, 2012 [facility] [place] [facility] [address] [id number] [place] [address] 17 Aug, 2012 [facility] [address] [id number] [place] [address] 15 Aug, 2012 [facility] [place] [facility] [address] [id number] [place] [address] 15 Aug, 2012 [facility] [place] [facility] [address] [id number] [place] [address] Aug, [facility] [place] [facility] [address] [id number] [place] [address] Aug, [facility] [place] [facility] [address] [id number] [place] [address] 07 Aug, 2012 [facility] [place] [facility] [address] [id number] [place] [address] 27 Jul, 2012 [facility] [place] [facility] [address] [id number] [place] [address] Jul, [facility] [place] [facility] [address] [id number] [place] [address] 26 Jul, 2012 [facility] [place] [facility] [address] [id number] [place] [address] 22 Jul, 2012 [facility] [place] [facility] [address] [id number] [place] [address] Jul, 2012 [facility] [address] [id number] [place] [address] Jul, 2012 [facility] [place] [facility] [address] [id number] [place] [address] Jul, 2012 [facility] [place] [facility] [address] [id number] [place] [address] Jul, [facility] [place] [facility] [address] [id number] [place] [address] Jul, [facility] [place] [facility] [address] [id number] [place] [address] Jul, [facility] [place] [facility] [address] [id number] [place] [address] May, [facility] [id number] [id number] May, [facility] [place] [facility] [id number] [place] [address] May, [facility] [place] [facility] [address] [id number] [place] [address] May, [facility] [place] [facility] [id number] [place] [address] May, [facility] [place] [facility] [id number] [place] [address] Apr, [facility] [place] [address] [id number] [id number] Apr, [facility] [place] [facility] [id number] [place] [address] Apr, [facility] [place] [facility] [id number] [place] [address] Mar, [facility] [place] [id number] [id number] Mar, [facility] [place] [facility] [id number] [place] [address] Mar, [facility] [place] [id number] [id number] 13 Feb, 2012 [facility] [place] [facility] [address] [id number] [place] [address] Feb, [facility] [place] [facility] [address] [id number] [place] [address] Feb, [facility] [address] [id number] [id number] 10 Feb, 2012 [facility] [address] [id number] [id number] 07 Feb, 2012 [facility] [address] [id number] [id number] Jan, [facility] [place] [facility] [id number] [place] [address] Jan, [facility] [address] [facility] [id number] Jan, [facility] [id number] [id number] Jan, [facility] [address] [id number] [id number] Jan, [facility] [place] [facility] [address] [id number] [place] [address] Jan, [facility] [place] [facility] [address] [id number] [place] [address] Jan, [facility] [place] [facility] [id number] [place] [address] Aug, [facility] [address] [facility] [address] Aug, [facility] [place] [facility] [address] [id number] [place] [address] Jul, [facility] [place] [facility] [id number] [place] [address] Jul, [facility] [place] [facility] [id number] [place] [address] Jul, [facility] [address] [id number] [id number] Jul, [facility] [place] [facility] [address] [id number] [place] [address] Jul, [facility] [address] [id number] [id number] Jul, [facility] [place] [facility] [id number] [place] [address] Jul, [facility] [address] [facility] [id number] Jul, [facility] [address] [facility] [id number] Jul, [facility] [place] [address] [facility] [id number] Jul, [facility] [place] [facility] [id number] [place] [address] May, [facility] [place] [facility] [id number] [place] [address] May, [facility] [place] [facility] [id number] [place] [address] May, [facility] [place] [facility] [id number] [place] [address] Apr, [facility] [place] [facility] [id number] [place] [address] Jan, [facility] [place] [facility] [id number] [place] [address] Jan, [facility] [place] [facility] [id number] [place] [address] Dec, [facility] [place] [facility] [address] [id number] [place] [address] Dec, [facility] [place] [facility] [id number] [place] [address] 16 May, 2009 [facility] [place] [facility] [id number] [place] [address] Mar, [facility] [place] [facility] [id number] [place] [address] Mar, [facility] [place] [facility] [address] [facility] [place] [id number] [place] [address] Jan, IMMUNIZATIONS No Known Immunizations SOCIAL HISTORY [...]
--- OUTSIDE RECORDS SUMMARY | 2020-01-28 12:37 | XMS REPORT ---
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 075942269 Problem History of venous thromboembolism V12.51 Active 829827563 Problem Cellulitis of unspecified part of limb L03.119 Active 455784115 Problem Gastroesophageal reflux disease without esophagitis K21.9 Active 272800592 Problem History of pulmonary embolism Z86.711 Active 284538233 Problem Pseudotumor cerebri G93.2 Active 98799532 Problem History of DVT (deep vein thrombosis) Z86.718 Active 331760427 ALLERGIES No Information ENCOUNTERS Encounter Location Date Diagnosis [place] [address] [address] Apr, 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 (current) use of 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 Z79.01 [place] [address] [address] Apr, [facility] current use of anticoagulant Z 79.01 [place] [address] [address] Apr, Cellulitis of unspecified part of limb L 03.119 ; Allergic contact dermatitis due to adhesives L23.1 and Chronic pain syndrome G89.4 [place] [address] [address] Apr, [place] [address] [address] Apr, 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 of anticoagulant Z 79.01 ; Cellulitis of unspecified part of limb L03.119 ; Chronic pain syndrome G89.4 and Anxiety F41.9 [place] [address] [address] Apr, [place] [address] [address] Apr, [place] [address] [address] Mar, [place] [address] [address] Mar, [address] [address] Mar, Sore throat J02.9 ; Gastroesophageal ref lux disease without esophagitis K21.9 ; Pseudotumor cerebri G93.2 ; Chronic pain syndrome G89.4 ; Choriocarcinoma C58 ; History of pulmonary embolism Z86.711 ; History of DVT (deep vein thrombosis) Z86.718 ; Anxiety F41.9 and Tachycardia R00.[address] [address] Feb, Anxiety 300.00 and Chronic pain 338.[address] [address] Feb, [place] [address] [address] Feb, [place] [address] [address] Jan, 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 use of anticoagulant t herapy V58.61 and Dysuria 788.[address] [address] Jan, Dysuria 788.[address] [address] Jan, Anxiety 300.00 and Chronic pain 338.29 [place] [address] [address] Jan, [place] [address] [address] Jan, [place] [address] [address] Jan, [place] [address] [address] Dec, Weakness 780.79 [place] [address] [address] Dec, 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 use of anticoagulant t herapy V58.61 [place] [address] [address] Dec, Palpitations 785.1 ; Tremor 781.0 ; Weak ness 780.79 ; 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 use of anticoagulant therapy V58.61 and Yeast vaginitis 112.1 [place] [address] [address] Dec, [place] [address] [address] Dec, Cervicalgia 723.1 ; Tachycardia 785.0 ; Pseudotumor cerebri 348.2 and History of venous thromboembolism V12.51 [place] [address] [address] Nov, [place] [address] [address] Nov, [place] [address] [address] Nov, Tachycardia 785.0 ; Pseudotumor cerebri 348.2 ; Anxiety 300.00 and History of venous thromboembolism V12.51 [place] [address] [address] Nov, [place] [address] [address] Nov, [facility] [address] [id number] [place] [address] 16 Nov, 2014 [facility] [address] [place] [id number] [place] [address] 12 Nov, 2014 [facility] [address] [id number] [place] [address] Nov, [facility] [address] [place] [id number] [place] [address] 08 Nov, 2014 [facility] [address] [id number] [place] [address] Nov, [facility] [address] [place] [id number] [place] [address] October, [facility] [address] [place] [id number] [place] [address] October, [facility] [address] [place] [id number] [place] [address] October, Pain in thoracic spine 724.1 and Tachyca rdia 785.0 [facility] [address] [place] [id number] [place] [address] October, [facility] [address] [place] [id number] [place] [address] October, [facility] [address] [place] [id number] [place] [address] 14 Sep, 2014 [facility] [address] [place] [id number] [place] [address] Sep, [facility] [address] [place] [id number] [place] [address] Aug, [facility] [address] [place] [id number] [place] [address] Aug, [facility] [address] [id number] [place] [address] Aug, [facility] [address] [place] [id number] [place] [address] Aug, [facility] [address] [id number] [place] [address] Aug, 2014 [facility] [address] [id number] [place] [address] Aug, 2014 [facility] [address] [id number] [place] [address] Aug, 2014 [facility] [address] [id number] [place] [address] Aug, 2014 [facility] [address] [id number] [place] [address] Aug, 2014 [facility] [address] [id number] [place] [address] Aug, 2014 [facility] [address] [id number] [place] [address] Aug, 2014 [facility] [address] [id number] [place] [address] Aug, 2014 [facility] [address] [id number] [place] [address] Jul, 2014 [facility] [address] [id number] [place] [address] Jul, 2014 [facility] [address] [id number] [place] [address] Jul, 2014 [facility] [address] [id number] [place] [address] Jul, 2014 [facility] [address] [id number] [place] [address] Jul, 2014 [facility] [address] [id number] [place] [address] Jul, 2014 [facility] [address] [id number] [place] [address] Jul, 2014 [facility] [address] [id number] [place] [address] Jul, 2014 [facility] [address] [id number] [place] [address] 20 Jul, 2014 [facility] [address] [id number] [place] [address] 20 Jul, 2014 [facility] [address] [id number] [place] [address] 19 Jul, 2014 [facility] [address] [id number] [place] [address] 19 Jul, 2014 [facility] [address] [id number] [place] [address] 17 Jul, 2014 [facility] [address] [id number] [place] [address] 17 Jul, 2014 [facility] [address] [id number] [place] [address] 16 Jul, 2014 [facility] [address] [id number] [place] [address] 16 Jul, 2014 [facility] [address] [id number] [place] [address] 16 Jul, 2014 [facility] [address] [id number] [place] [address] 16 Jul, 2014 [facility] [address] [id number] [place] [address] 13 Jul, 2014 [facility] [address] [id number] [place] [address] 13 Jul, 2014 [facility] [address] [id number] [place] [address] 13 Jul, 2014 [facility] [address] [id number] [place] [address] 13 Jul, 2014 [facility] [address] [id number] [place] [address] 12 Jul, 2014 [facility] [address] [id number] [place] [address] 12 Jul, 2014 [facility] [address] [id number] [place] [address] Jul, [facility] [address] [facility] [id number] [place] [address] Jul, [facility] [address] [id number] [place] [address] Jul, [facility] [address] [id number] [place] [address] Jul, [facility] [address] [id number] [place] [address] Jul, [facility] [address] [id number] [place] [address] Jul, [facility] [address] [id number] [place] [address] Jun, [facility] [address] [id number] [place] [address] Jun, [facility] [address] [id number] [place] [address] Jun, [facility] [address] [id number] [place] [address] Jun, [facility] [address] [id number] [place] [address] Jun, [facility] [address] [id number] [place] [address] Jun, [facility] [address] [id number] [place] [address] Jun, [facility] [address] [id number] [place] [address] Jun, [facility] [address] [id number] [place] [address] Jun, [facility] [address] [id number] [place] [address] Jun, [facility] [address] [id number] [place] [address] Jun, [facility] [address] [id number] [place] [address] Jun, [facility] [address] [id number] [place] [address] Jun, [facility] [address] [id number] [place] [address] Jun, [facility] [address] [id number] [place] [address] Jun, [facility] [address] [id number] [place] [address] Jun, [facility] [address] [id number] [place] [address] Jun, [facility] [address] [id number] [place] [address] Jun, [facility] [address] [id number] [place] [address] Jun, [facility] [address] [id number] [place] [address] Jun, [facility] [address] [id number] [place] [address] May, [facility] [address] [id number] [place] [address] May, [facility] [address] [id number] [place] [address] May, [facility] [address] [id number] [place] [address] May, [facility] [address] [id number] [place] [address] May, [facility] [address] [id number] [place] [address] May, [facility] [address] [id number] [place] [address] May, [facility] [address] [id number] [place] [address] May, [facility] [address] [facility] [id number] [place] [address] May, [facility] [address] [id number] [place] [address] May, [facility] [address] [id number] [place] [address] May, [facility] [address] [id number] [place] [address] May, [facility] [address] [id number] [place] [address] 18 May, 2014 [facility] [address] [id number] [place] [address] 17 May, 2014 [facility] [address] [id number] [place] [address] 16 May, 2014 [facility] [address] [id number] [place] [address] 16 May, 2014 [facility] [address] [id number] [place] [address] 15 May, 2014 [facility] [address] [id number] [place] [address] 15 May, 2014 [facility] [address] [id number] [place] [address] 12 May, 2014 [facility] [address] [id number] [place] [address] May, [facility] [address] [id number] [place] [address] May, [facility] [address] [id number] [place] [address] May, [facility] [address] [id number] [place] [address] May, [facility] [address] [id number] [place] [address] May, [facility] [address] [id number] [place] [address] May, [facility] [address] [id number] [place] [address] May, [facility] [address] [id number] [place] [address] May, [facility] [address] [id number] [place] [address] May, [facility] [address] [id number] [place] [address] May, [facility] [address] [id number] [place] [address] May, [facility] [address] [id number] [place] [address] May, [facility] [address] [id number] [place] [address] May, [facility] [address] [id number] [place] [address] May, [facility] [address] [id number] [place] [address] May, [facility] [address] [id number] [place] [address] Apr, [facility] [address] [id number] [place] [address] Apr, [facility] [address] [id number] [place] [address] Apr, [facility] [address] [id number] [place] [address] Apr, [facility] [address] [id number] [place] [address] Apr, [facility] [address] [id number] [place] [address] Apr, [facility] [address] [id number] [place] [address] Apr, [facility] [address] [id number] [place] [address] Apr, [facility] [address] [id number] [place] [address] Apr, [facility] [address] [id number] [place] [address] Apr, [facility] [address] [id number] [place] [address] Mar, [facility] [address] [id number] [place] [address] Mar, [facility] [address] [id number] [place] [address] Mar, [facility] [address] [id number] [place] [address] Mar, [facility] [address] [id number] [place] [address] Mar, [facility] [address] [id number] [place] [address] 30 Mar, 2014 [facility] [address] [id number] [place] [address] Mar, [facility] [address] [id number] [place] [address] 17 Mar, 2013 [facility] [address] [id number] [place] [address] 15 Mar, 2014 [facility] [address] [id number] [place] [address] 15 Mar, 2014 [facility] [address] [id number] [place] [address] 15 Mar, 2014 [facility] [address] [id number] [place] [address] 15 Mar, 2014 [facility] [address] [id number] [place] [address] 09 Mar, 2014 [facility] [address] [id number] [place] [address] Mar, 2013 [facility] [address] [id number] [place] [address] Mar, 2013 [facility] [address] [id number] [place] [address] Mar, 2013 [facility] [address] [id number] [place] [address] Mar, 2013 [facility] [address] [id number] [place] [address] Mar, 2013 [facility] [address] [id number] [place] [address] Mar, 2013 [facility] [address] [id number] [place] [address] Mar, 2013 [facility] [address] [id number] [place] [address] 05 Sep, 2013 [facility] [address] [id number] [place] [address] 05 Sep, 2013 [facility] [address] [id number] [place] [address] 04 Sep, 2013 [facility] [address] [id number] [place] [address] 04 Sep, 2013 [facility] [address] [id number] [place] [address] 03 Sep, 2013 [facility] [address] [id number] [place] [address] 03 Sep, 2013 [facility] [address] [id number] [place] [address] Sep, 2013 [facility] [address] [id number] [place] [address] Sep, 2013 [facility] [address] [id number] [place] [address] Sep, 2013 [facility] [address] [id number] [place] [address] Sep, 2013 [facility] [address] [id number] [facility] [address] Jan, [facility] [address] [id number] [facility] [place] [address] Jan, [facility] [address] [facility] [id number] [facility] [address] Jan, [facility] [address] [facility] [id number] [place] [address] Jan, [facility] [address] [facility] [id number] [facility] [place] [address] Jan, [facility] [address] [id number] [facility] [place] [address] Jan, [facility] [address] [facility] [id number] [place] [address] Jan, [facility] [address] [id number] [place] [address] Jan, [facility] [address] [id number] [place] [address] Jan, [facility] [address] [id number] [place] [address] Jan, [facility] [address] [facility] [id number] [place] [address] Jan, [facility] [address] [id number] [place] [address] Jan, [facility] [address] [id number] [place] [address] Dec, [facility] [address] [id number] [place] [address] Dec, [facility] [address] [id number] [place] [address] Dec, [facility] [address] [facility] [id number] [place] [address] Dec, [facility] [address] [id number] [place] [address] Dec, [facility] [address] [facility] [id number] [place] [address] 14 Dec, 2013 [facility] [address] [facility] [id number] [place] [address] Dec, 2013 [facility] [address] [facility] [id number] [place] [address] Dec, 2013 [facility] [address] [id number] [place] [address] Dec, 2013 [facility] [address] [facility] [id number] [place] [address] Dec, 2013 [facility] [address] [id number] [place] [address] Dec, 2013 [facility] [address] [id number] [place] [address] Dec, 2013 [facility] [address] [id number] [place] [address] Nov, 2013 [facility] [address] [id number] [place] [address] Nov, [facility] [address] [id number] [place] [address] Nov, [facility] [address] [id number] [place] [address] Nov, [facility] [address] [id number] [place] [address] Nov, [facility] [address] [id number] [place] [address] Nov, [facility] [address] [id number] [place] [address] Nov, [facility] [address] [id number] [place] [address] Nov, [facility] [address] [id number] [place] [address] Nov, [facility] [address] [id number] [place] [address] Nov, [facility] [address] [id number] [place] [address] Nov, [facility] [address] [id number] [place] [address] Nov, [facility] [address] [id number] [place] [address] Nov, [facility] [address] [id number] [place] [address] Nov, [facility] [address] [id number] [place] [address] October, [facility] [address] [id number] [place] [address] October, [facility] [address] [id number] [place] [address] October, [facility] [address] [id number] [place] [address] October, [facility] [address] [id number] [place] [address] October, [facility] [address] [id number] [place] [address] October, [facility] [address] [id number] [place] [address] October, [facility] [address] [id number] [place] [address] October, [facility] [address] [id number] [place] [address] October, [facility] [address] [id number] [place] [address] October, [facility] [address] [id number] [place] [address] October, [facility] [address] [id number] [place] [address] October, [facility] [address] [id number] [facility] [place] [address] Sep, [facility] [address] [id number] [facility] [place] [address] Sep, [facility] [address] [facility] [id number] [facility] [place] [address] Sep, [facility] [address] [id number] [place] [address] Sep, [facility] [address] [id number] [facility] [place] [address] Sep, [facility] [address] [facility] [id number] [facility] [place] [address] Sep, [facility] [address] [id number] [place] [address] Aug, [facility] [place] [facility] [address] [id number] [place] [address] Aug, [facility] [place] [facility] [address] [id number] [place] [address] Aug, [facility] [place] [facility] [address] [facility] [id number] [place] [address] Aug, [facility] [place] [facility] [address] [id number] [place] [address] Aug, [facility] [place] [facility] [address] [id number] [place] [address] Aug, [facility] [place] [facility] [address] [id number] [place] [address] Jul, [facility] [place] [facility] [address] [facility] [id number] [place] [address] Jul, [facility] [place] [facility] [address] [id number] [place] [address] Jul, [facility] [place] [facility] [address] [id number] [place] [address] Jul, [facility] [place] [facility] [address] [id number] [place] [address] Jul, [facility] [place] [facility] [address] [facility] [id number] [facility] [place] [address] Jul, [facility] [place] [facility] [address] [id number] [facility] [place] [address] Jul, [facility] [place] [facility] [address] [id number] [place] [address] Jul, [facility] [place] [facility] [address] [id number] [place] [address] Jul, [facility] [place] [facility] [address] [id number] [place] [address] Jul, [facility] [place] [facility] [address] [id number] [place] [address] Jun, [facility] [place] [facility] [address] [id number] [place] [address] Jun, [facility] [place] [facility] [address] [id number] [place] [address] Jun, [facility] [place] [facility] [address] [id number] [place] [address] Jun, [facility] [place] [facility] [address] [id number] [place] [address] Jun, [facility] [place] [facility] [address] [id number] [place] [address] Jun, [facility] [place] [facility] [address] [id number] [place] [address] Jun, [facility] [place] [facility] [address] [id number] [place] [address] Jun, [facility] [place] [facility] [address] [id number] [place] [address] May, [facility] [place] [facility] [address] [id number] [place] [address] May, [facility] [place] [facility] [address] [id number] [place] [address] May, [facility] [place] [facility] [address] [id number] [place] [address] May, 2012 [facility] [place] [facility] [address] [id number] [place] [address] May, [facility] [place] [facility] [address] [id number] [place] [address] May, [facility] [place] [facility] [address] [id number] [place] [address] May, [facility] [place] [facility] [address] [id number] [place] [address] May, [facility] [place] [facility] [address] [id number] [place] [address] Apr, [facility] [place] [facility] [address] [id number] [place] [address] Apr, [facility] [place] [facility] [address] [id number] [place] [address] Apr, [facility] [place] [facility] [address] [id number] [place] [address] Apr, [facility] [place] [facility] [address] [id number] [place] [address] Apr, [facility] [place] [facility] [address] [id number] [place] [address] Apr, [facility] [place] [facility] [address] [id number] [place] [address] Mar, [facility] [place] [facility] [address] [id number] [place] [address] Mar, [facility] [place] [facility] [address] [id number] [place] [address] Mar, [facility] [place] [facility] [address] [id number] [place] [address] Mar, [facility] [place] [facility] [address] [id number] [place] [address] Mar, [facility] [place] [facility] [address] [id number] [place] [address] Mar, [facility] [place] [facility] [address] [id number] [place] [address] Mar, [facility] [place] [facility] [address] [id number] [place] [address] Feb, [facility] [place] [facility] [address] [id number] [place] [address] 30 Feb, 2012 [facility] [place] [facility] [address] [id number] [place] [address] Feb, [facility] [place] [facility] [address] [facility] [id number] [place] [address] Feb, 2012 [facility] [place] [facility] [address] [id number] [place] [address] Feb, [facility] [place] [facility] [address] [id number] [place] [address] Feb, [facility] [place] [facility] [address] [id number] [place] [address] Jan, [facility] [place] [facility] [address] [id number] [place] [address] Jan, [facility] [place] [facility] [address] [id number] [place] [address] Jan, [facility] [place] [facility] [address] [id number] [place] [address] Jan, [facility] [place] [facility] [address] [id number] [place] [address] Jan, [facility] [place] [facility] [address] [id number] [place] [address] Jan, [facility] [place] [facility] [address] [id number] [place] [address] Jan, [facility] [place] [facility] [address] [id number] [place] [address] Jan, [facility] [place] [facility] [address] [id number] [place] [address] Jan, [facility] [place] [facility] [address] [id number] [place] [address] 29 Dec, 2012 [facility] [place] [facility] [address] [id number] [facility] [place] [address] Dec, 2012 [facility] [place] [facility] [address] [facility] [id number] [facility] [address] Dec, 2012 [facility] [place] [facility] [address] [id number] [facility] [place] [address] 18 Dec, 2012 [facility] [place] [facility] [address] [id number] [place] [address] 17 Dec, 2012 [facility] [place] [facility] [address] [facility] [id number] [facility] [place] [address] 16 Dec, 2012 [facility] [place] [facility] [address] [id number] [facility] [place] [address] 15 Dec, 2012 [facility] [place] [facility] [address] [id number] [facility] [address] 09 Dec, 2012 [facility] [place] [facility] [address] [id number] [facility] [place] [address] Dec, 2012 [facility] [place] [facility] [address] [id number] [facility] [place] [address] Dec, 2012 [facility] [place] [facility] [address] [id number] [facility] [address] Dec, [facility] [place] [facility] [address] [id number] [place] [address] Dec, 2012 [facility] [place] [facility] [address] [id number] [place] [address] Dec, 2012 [facility] [place] [facility] [address] [id number] [facility] [address] Nov, [facility] [place] [facility] [address] [id number] [place] [address] Nov, 2012 [facility] [place] [facility] [address] [id number] [place] [address] Nov, [facility] [place] [facility] [address] [id number] [place] [address] Nov, [facility] [place] [facility] [address] [facility] [id number] [facility] [place] [address] October, [facility] [place] [facility] [address] [id number] [place] [address] October, [facility] [place] [facility] [address] [id number] [place] [address] October, [facility] [place] [facility] [address] [id number] [place] [address] October, [facility] [place] [facility] [address] [id number] [facility] [place] [address] October, [facility] [place] [facility] [address] [id number] [facility] [place] [address] October, [facility] [place] [facility] [address] [id number] [place] [address] Sep, [facility] [place] [facility] [address] [id number] [place] [address] Sep, [facility] [place] [facility] [address] [id number] [place] [address] Sep, [facility] [place] [facility] [address] [id number] [place] [address] Sep, [facility] [place] [facility] [address] [id number] [place] [address] Sep, [facility] [place] [facility] [address] [id number] [place] [address] 16 Sep, 2012 [facility] [place] [facility] [address] [id number] [place] [address] Sep, [facility] [place] [facility] [address] [id number] [place] [address] Sep, [facility] [place] [facility] [address] [id number] [place] [address] Sep, [facility] [place] [facility] [address] [id number] [place] [address] Sep, [facility] [place] [facility] [address] [id number] [place] [address] Sep, [facility] [address] [id number] [place] [address] Aug, [facility] [place] [facility] [address] [id number] [place] [address] 25 Aug, 2012 [facility] [place] [facility] [address] [id number] [place] [address] Aug, [facility] [place] [facility] [address] [id number] [place] [address] Aug, [facility] [place] [facility] [address] [id number] [place] [address] 19 Aug, 2012 [facility] [address] [id number] [place] [address] 18 Aug, 2012 [facility] [place] [facility] [address] [id number] [place] [address] 17 Aug, 2012 [facility] [address] [id number] [place] [address] 15 Aug, 2012 [facility] [place] [facility] [address] [id number] [place] [address] 15 Aug, 2012 [facility] [place] [facility] [address] [id number] [place] [address] Aug, [facility] [place] [facility] [address] [id number] [place] [address] Aug, [facility] [place] [facility] [address] [id number] [place] [address] 07 Aug, 2012 [facility] [place] [facility] [address] [id number] [place] [address] 27 Jul, 2012 [facility] [place] [facility] [address] [id number] [place] [address] Jul, [facility] [place] [facility] [address] [id number] [place] [address] 26 Jul, 2012 [facility] [place] [facility] [address] [id number] [place] [address] 22 Jul, 2012 [facility] [place] [facility] [address] [id number] [place] [address] Jul, 2012 [facility] [address] [id number] [place] [address] Jul, 2012 [facility] [place] [facility] [address] [id number] [place] [address] Jul, 2012 [facility] [place] [facility] [address] [id number] [place] [address] Jul, [facility] [place] [facility] [address] [id number] [place] [address] Jul, [facility] [place] [facility] [address] [id number] [place] [address] Jul, [facility] [place] [facility] [address] [id number] [place] [address] May, [facility] [id number] [id number] May, [facility] [place] [facility] [id number] [place] [address] May, [facility] [place] [facility] [address] [id number] [place] [address] May, [facility] [place] [facility] [id number] [place] [address] May, [facility] [place] [facility] [id number] [place] [address] Apr, [facility] [place] [address] [id number] [id number] Apr, [facility] [place] [facility] [id number] [place] [address] Apr, [facility] [place] [facility] [id number] [place] [address] Mar, [id number] [id number] Mar, [facility] [place] [facility] [id number] [place] [address] Mar, [facility] [id number] [place] [id number] 13 Feb, 2012 [facility] [place] [facility] [address] [id number] [place] [address] Feb, [facility] [place] [facility] [address] [id number] [place] [address] Feb, [facility] [address] [id number] [id number] 10 Feb, 2012 [facility] [address] [id number] [id number] 07 Feb, 2012 [facility] [address] [id number] [id number] Jan, [facility] [place] [facility] [id number] [place] [address] Jan, [facility] [address] [id number] [id number] Jan, [facility] [address] [id number] [id number] Jan, [facility] [address] [id number] [id number] Jan, [facility] [place] [facility] [address] [id number] [place] [address] Jan, [facility] [place] [facility] [address] [id number] [place] [address] Jan, [facility] [place] [facility] [id number] [place] [address] Aug, [facility] [address] [id number] [id number] Aug, [facility] [place] [facility] [address] [id number] [place] [address] Jul, [facility] [place] [facility] [id number] [place] [address] Jul, [facility] [place] [facility] [id number] [place] [address] Jul, [facility] [address] [id number] [id number] Jul, [facility] [place] [facility] [address] [id number] [place] [address] Jul, [facility] [address] [id number] [address] Jul, [facility] [place] [facility] [id number] [place] [address] Jul, [facility] [place] [address] [facility] [id number] Jul, [facility] [place] [address] [id number] [id number] Jul, [facility] [place] [address] [facility] [id number] Jul, [facility] [place] [facility] [id number] [place] [address] May, [facility] [place] [facility] [id number] [place] [address] May, [facility] [place] [facility] [id number] [place] [address] May, [facility] [place] [facility] [id number] [place] [address] Apr, [facility] [place] [facility] [id number] [place] [address] Jan, [facility] [place] [facility] [id number] [place] [address] Jan, [facility] [place] [facility] [id number] [place] [address] Dec, [facility] [place] [facility] [address] [id number] [place] [address] Dec, [facility] [place] [facility] [id number] [place] [address] 16 May, 2009 [facility] [place] [facility] [id number] [place] [address] Mar, [facility] [place] [facility] [id number] [place] [address] Mar, [facility] [place] [facility] [address] [facility] [id number] [place] [address] Jan, IMMUNIZATIONS No Known Immunizations SOCIAL HISTORY [...]
--- NOTE | 2020-01-28 12:38 | Diagnostic Imaging Report ---
INDICATION: Chest pain COMPARISON: 07/13/2019 FINDINGS: Single frontal view of the chest demonstrates normal heart size and pulmonary vascularity. The lungs are well aerated and clear. No large pleural effusion or pneumothorax is seen. The visualized osseous structures show no acute abnormalities. IMPRESSION: 1. No acute cardiopulmonary process. Dictated by: Dictated on workstation # [id number]
--- OUTSIDE RECORDS SUMMARY | 2020-01-28 12:38 | XMS REPORT ---
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 723512722 Problem History of venous thromboembolism V12.51 Active 693270436 Problem Cellulitis of unspecified part of limb L03.119 Active 186191791 Problem Gastroesophageal reflux disease without esophagitis K21.9 Active 444555261 Problem History of pulmonary embolism Z86.711 Active 522354044 Problem Pseudotumor cerebri G93.2 Active 00737060 Problem History of DVT (deep vein thrombosis) Z86.718 Active 336243777 ALLERGIES No Information ENCOUNTERS Encounter Location Date Diagnosis [place] [address] [address] Apr, 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 (current) use of 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 Z79.01 [place] [address] [address] Apr, longterm current use of anticoagulant Z 79.01 [place] [address] [address] Apr, Cellulitis of unspecified part of limb L 03.119 ; Allergic contact dermatitis due to adhesives L23.1 and Chronic pain syndrome G89.4 [place] [address] [address] Apr, [place] [address] [address] Apr, 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 ; Cellulitis of unspecified part of limb L03.119 ; Chronic pain syndrome G89.4 and Anxiety F41.9 [place] [address] [address] Apr, [place] [address] [address] Apr, [place] [address] [address] Mar, [place] [address] [address] Mar, [address] [address] Mar, Sore throat J02.9 ; Gastroesophageal ref lux disease without esophagitis K21.9 ; Pseudotumor cerebri G93.2 ; Chronic pain syndrome G89.4 ; Choriocarcinoma C58 ; History of pulmonary embolism Z86.711 ; History of DVT (deep vein thrombosis) Z86.718 ; Anxiety F41.9 and Tachycardia R00.[address] [address] Feb, Anxiety 300.00 and Chronic pain 338.[address] [address] Feb, [place] [address] [address] Feb, [place] [address] [address] Jan, 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 t herapy V58.61 and Dysuria 788.[address] [address] Jan, Dysuria 788.[address] [address] Jan, Anxiety 300.00 and Chronic pain 338.29 [place] [address] [address] Jan, [place] [address] [address] Jan, [place] [address] [address] Jan, [place] [address] [address] Dec, Weakness 780.79 [place] [address] [address] Dec, 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 t herapy V58.61 [place] [address] [address] Dec, Palpitations 785.1 ; Tremor 781.0 ; Weak ness 780.79 ; 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 therapy V58.61 and Yeast vaginitis 112.1 [place] [address] [address] Dec, [place] [address] [address] Dec, Cervicalgia 723.1 ; Tachycardia 785.0 ; Pseudotumor cerebri 348.2 and History of venous thromboembolism V12.51 [place] [address] [address] Nov, [place] [address] [address] Nov, [place] [address] [address] Nov, Tachycardia 785.0 ; Pseudotumor cerebri 348.2 ; Anxiety 300.00 and History of venous thromboembolism V12.51 [place] [address] [address] Nov, [place] [address] [address] Nov, [facility] [address] [id number] [place] [address] 16 Nov, 2014 [facility] [address] [place] [id number] [place] [address] 12 Nov, 2014 [facility] [address] [id number] [place] [address] Nov, [facility] [address] [place] [id number] [place] [address] 08 Nov, 2014 [facility] [address] [id number] [place] [address] Nov, [facility] [address] [place] [id number] [place] [address] October, [facility] [address] [place] [id number] [place] [address] October, [facility] [address] [place] [id number] [place] [address] October, Pain in thoracic spine 724.1 and Tachyca rdia 785.0 [facility] [address] [place] [id number] [place] [address] October, [facility] [address] [place] [id number] [place] [address] October, [facility] [address] [place] [id number] [place] [address] 14 Sep, 2014 [facility] [address] [place] [id number] [place] [address] Sep, [facility] [address] [place] [id number] [place] [address] Aug, [facility] [address] [place] [id number] [place] [address] Aug, [facility] [address] [id number] [place] [address] Aug, [facility] [address] [place] [id number] [place] [address] Aug, [facility] [address] [id number] [place] [address] Aug, 2014 [facility] [address] [id number] [place] [address] Aug, 2014 [facility] [address] [id number] [place] [address] Aug, 2014 [facility] [address] [id number] [place] [address] Aug, 2014 [facility] [address] [id number] [place] [address] Aug, 2014 [facility] [address] [id number] [place] [address] Aug, 2014 [facility] [address] [id number] [place] [address] Aug, 2014 [facility] [address] [id number] [place] [address] Aug, 2014 [facility] [address] [id number] [place] [address] Jul, 2014 [facility] [address] [id number] [place] [address] Jul, 2014 [facility] [address] [id number] [place] [address] Jul, 2014 [facility] [address] [id number] [place] [address] Jul, 2014 [facility] [address] [id number] [place] [address] Jul, 2014 [facility] [address] [id number] [place] [address] Jul, 2014 [facility] [address] [id number] [place] [address] Jul, 2014 [facility] [address] [id number] [place] [address] Jul, 2014 [facility] [address] [id number] [place] [address] 20 Jul, 2014 [facility] [address] [id number] [place] [address] 20 Jul, 2014 [facility] [address] [id number] [place] [address] 19 Jul, 2014 [facility] [address] [id number] [place] [address] 19 Jul, 2014 [facility] [address] [id number] [place] [address] 17 Jul, 2014 [facility] [address] [id number] [place] [address] 17 Jul, 2014 [facility] [address] [id number] [place] [address] 16 Jul, 2014 [facility] [address] [id number] [place] [address] 16 Jul, 2014 [facility] [address] [id number] [place] [address] 16 Jul, 2014 [facility] [address] [id number] [place] [address] 16 Jul, 2014 [facility] [address] [id number] [place] [address] 13 Jul, 2014 [facility] [address] [id number] [place] [address] 13 Jul, 2014 [facility] [address] [id number] [place] [address] 13 Jul, 2014 [facility] [address] [id number] [place] [address] 13 Jul, 2014 [facility] [address] [id number] [place] [address] 12 Jul, 2014 [facility] [address] [id number] [place] [address] 12 Jul, 2014 [facility] [address] [id number] [place] [address] Jul, [facility] [address] [facility] [id number] [place] [address] Jul, [facility] [address] [id number] [place] [address] Jul, [facility] [address] [id number] [place] [address] Jul, [facility] [address] [id number] [place] [address] Jul, [facility] [address] [id number] [place] [address] Jul, [facility] [address] [id number] [place] [address] Jun, [facility] [address] [id number] [place] [address] Jun, [facility] [address] [id number] [place] [address] Jun, [facility] [address] [id number] [place] [address] Jun, [facility] [address] [id number] [place] [address] Jun, [facility] [address] [id number] [place] [address] Jun, [facility] [address] [id number] [place] [address] Jun, [facility] [address] [id number] [place] [address] Jun, [facility] [address] [id number] [place] [address] Jun, [facility] [address] [id number] [place] [address] Jun, [facility] [address] [id number] [place] [address] Jun, [facility] [address] [id number] [place] [address] Jun, [facility] [address] [id number] [place] [address] Jun, [facility] [address] [id number] [place] [address] Jun, [facility] [address] [id number] [place] [address] Jun, [facility] [address] [id number] [place] [address] Jun, [facility] [address] [id number] [place] [address] Jun, [facility] [address] [id number] [place] [address] Jun, [facility] [address] [id number] [place] [address] Jun, [facility] [address] [id number] [place] [address] Jun, [facility] [address] [id number] [place] [address] May, [facility] [address] [id number] [place] [address] May, [facility] [address] [id number] [place] [address] May, [facility] [address] [id number] [place] [address] May, [facility] [address] [id number] [place] [address] May, [facility] [address] [id number] [place] [address] May, [facility] [address] [id number] [place] [address] May, [facility] [address] [id number] [place] [address] May, [facility] [address] [facility] [id number] [place] [address] May, [facility] [address] [id number] [place] [address] May, [facility] [address] [id number] [place] [address] May, [facility] [address] [id number] [place] [address] May, [facility] [address] [id number] [place] [address] 18 May, 2014 [facility] [address] [id number] [place] [address] 17 May, 2014 [facility] [address] [id number] [place] [address] 16 May, 2014 [facility] [address] [id number] [place] [address] 16 May, 2014 [facility] [address] [id number] [place] [address] 15 May, 2014 [facility] [address] [id number] [place] [address] 15 May, 2014 [facility] [address] [id number] [place] [address] 12 May, 2014 [facility] [address] [id number] [place] [address] May, [facility] [address] [id number] [place] [address] May, [facility] [address] [id number] [place] [address] May, [facility] [address] [id number] [place] [address] May, [facility] [address] [id number] [place] [address] May, [facility] [address] [id number] [place] [address] May, [facility] [address] [id number] [place] [address] May, [facility] [address] [id number] [place] [address] May, [facility] [address] [id number] [place] [address] May, [facility] [address] [id number] [place] [address] May, [facility] [address] [id number] [place] [address] May, [facility] [address] [id number] [place] [address] May, [facility] [address] [id number] [place] [address] May, [facility] [address] [id number] [place] [address] May, [facility] [address] [id number] [place] [address] May, [facility] [address] [id number] [place] [address] Apr, [facility] [address] [id number] [place] [address] Apr, [facility] [address] [id number] [place] [address] Apr, [facility] [address] [id number] [place] [address] Apr, [facility] [address] [id number] [place] [address] Apr, [facility] [address] [id number] [place] [address] Apr, [facility] [address] [id number] [place] [address] Apr, [facility] [address] [id number] [place] [address] Apr, [facility] [address] [id number] [place] [address] Apr, [facility] [address] [id number] [place] [address] Apr, [facility] [address] [id number] [place] [address] Mar, [facility] [address] [id number] [place] [address] Mar, [facility] [address] [id number] [place] [address] Mar, [facility] [address] [id number] [place] [address] Mar, [facility] [address] [id number] [place] [address] Mar, [facility] [address] [id number] [place] [address] 30 Mar, 2014 [facility] [address] [id number] [place] [address] Mar, [facility] [address] [id number] [place] [address] 17 Mar, 2013 [facility] [address] [id number] [place] [address] 15 Mar, 2014 [facility] [address] [id number] [place] [address] 15 Mar, 2014 [facility] [address] [id number] [place] [address] 15 Mar, 2014 [facility] [address] [id number] [place] [address] 15 Mar, 2014 [facility] [address] [id number] [place] [address] 09 Mar, 2014 [facility] [address] [id number] [place] [address] Mar, 2013 [facility] [address] [id number] [place] [address] Mar, 2013 [facility] [address] [id number] [place] [address] Mar, 2013 [facility] [address] [id number] [place] [address] Mar, 2013 [facility] [address] [id number] [place] [address] Mar, 2013 [facility] [address] [id number] [place] [address] Mar, 2013 [facility] [address] [id number] [place] [address] Mar, 2013 [facility] [address] [id number] [place] [address] 05 Sep, 2013 [facility] [address] [id number] [place] [address] 05 Sep, 2013 [facility] [address] [id number] [place] [address] 04 Sep, 2013 [facility] [address] [id number] [place] [address] 04 Sep, 2013 [facility] [address] [id number] [place] [address] 03 Sep, 2013 [facility] [address] [id number] [place] [address] 03 Sep, 2013 [facility] [address] [id number] [place] [address] Sep, 2013 [facility] [address] [id number] [place] [address] Sep, 2013 [facility] [address] [id number] [place] [address] Sep, 2013 [facility] [address] [id number] [place] [address] Sep, 2013 [facility] [address] [id number] [facility] [place] [address] Jan, [facility] [address] [id number] [facility] [place] [address] Jan, [facility] [address] [facility] [id number] [facility] [place] [address] Jan, [facility] [address] [facility] [id number] [place] [address] Jan, [facility] [address] [facility] [id number] [facility] [place] [address] Jan, [facility] [address] [id number] [facility] [place] [address] Jan, [facility] [address] [facility] [id number] [place] [address] Jan, [facility] [address] [id number] [place] [address] Jan, [facility] [address] [id number] [place] [address] Jan, [facility] [address] [id number] [place] [address] Jan, [facility] [address] [facility] [id number] [place] [address] Jan, [facility] [address] [id number] [place] [address] Jan, [facility] [address] [id number] [place] [address] Dec, [facility] [address] [id number] [place] [address] Dec, [facility] [address] [id number] [place] [address] Dec, [facility] [address] [facility] [id number] [place] [address] Dec, [facility] [address] [id number] [place] [address] Dec, [facility] [address] [facility] [id number] [place] [id number] 14 Dec, 2013 [facility] [address] [facility] [id number] [place] [address] Dec, 2013 [facility] [address] [facility] [id number] [place] [address] Dec, 2013 [facility] [address] [id number] [place] [address] Dec, 2013 [facility] [address] [facility] [id number] [place] [address] Dec, 2013 [facility] [address] [id number] [place] [address] Dec, 2013 [facility] [address] [id number] [place] [address] Dec, 2013 [facility] [address] [id number] [place] [address] Nov, 2013 [facility] [address] [id number] [place] [address] Nov, [facility] [address] [id number] [place] [address] Nov, [facility] [address] [id number] [place] [address] Nov, [facility] [address] [id number] [place] [address] Nov, [facility] [address] [id number] [place] [address] Nov, [facility] [address] [id number] [place] [address] Nov, [facility] [address] [id number] [place] [address] Nov, [facility] [address] [id number] [place] [address] Nov, [facility] [address] [id number] [place] [address] Nov, [facility] [address] [id number] [place] [address] Nov, [facility] [address] [id number] [place] [address] Nov, [facility] [address] [id number] [place] [address] Nov, [facility] [address] [id number] [place] [address] Nov, [facility] [address] [id number] [place] [address] October, [facility] [address] [id number] [place] [address] October, [facility] [address] [id number] [place] [address] October, [facility] [address] [id number] [place] [address] October, [facility] [address] [id number] [place] [address] October, [facility] [address] [id number] [place] [address] October, [facility] [address] [id number] [place] [address] October, [facility] [address] [id number] [place] [address] October, [facility] [address] [id number] [place] [address] October, [facility] [address] [id number] [place] [address] October, [facility] [address] [id number] [place] [address] October, [facility] [address] [id number] [place] [address] October, [facility] [address] [id number] [facility] [place] [address] Sep, [facility] [address] [id number] [facility] [place] [address] Sep, [facility] [address] [facility] [id number] [facility] [place] [address] Sep, [facility] [address] [id number] [place] [address] Sep, [facility] [address] [facility] [id number] [facility] [place] [address] Sep, [facility] [place] [facility] [address] [facility] [id number] [facility] [place] [address] Sep, [facility] [place] [facility] [address] [id number] [place] [address] Aug, [facility] [place] [facility] [address] [id number] [place] [address] Aug, [facility] [place] [facility] [address] [id number] [place] [address] Aug, [facility] [place] [facility] [address] [facility] [id number] [place] [address] Aug, [facility] [place] [facility] [address] [id number] [place] [address] Aug, [facility] [place] [facility] [address] [id number] [place] [address] Aug, [facility] [place] [facility] [address] [id number] [place] [address] Jul, [facility] [place] [facility] [address] [facility] [id number] [place] [address] Jul, [facility] [place] [facility] [address] [id number] [place] [address] Jul, [facility] [place] [facility] [address] [id number] [place] [address] Jul, [facility] [place] [facility] [address] [id number] [place] [address] Jul, [facility] [place] [facility] [address] [facility] [id number] [facility] [place] [address] Jul, [facility] [place] [facility] [address] [id number] [facility] [place] [address] Jul, [facility] [place] [facility] [address] [id number] [place] [address] Jul, [facility] [place] [facility] [address] [id number] [place] [address] Jul, [facility] [place] [facility] [address] [id number] [place] [address] Jul, [facility] [place] [facility] [address] [id number] [place] [address] Jun, [facility] [place] [facility] [address] [id number] [place] [address] Jun, [facility] [place] [facility] [address] [id number] [place] [address] Jun, [facility] [place] [facility] [address] [id number] [place] [address] Jun, [facility] [place] [facility] [address] [id number] [place] [address] Jun, [facility] [place] [facility] [address] [id number] [place] [address] Jun, [facility] [place] [facility] [address] [id number] [place] [address] Jun, [facility] [place] [facility] [address] [id number] [place] [address] Jun, [facility] [place] [facility] [address] [id number] [place] [address] May, [facility] [place] [facility] [address] [id number] [place] [address] May, [facility] [place] [facility] [address] [id number] [place] [address] May, [facility] [place] [facility] [address] [id number] [place] [address] May, 2012 [facility] [place] [facility] [address] [id number] [place] [address] May, [facility] [place] [facility] [address] [id number] [place] [address] May, [facility] [place] [facility] [address] [id number] [place] [address] May, [facility] [place] [facility] [address] [id number] [place] [address] May, [facility] [place] [facility] [address] [id number] [place] [address] Apr, [facility] [place] [facility] [address] [id number] [place] [address] Apr, [facility] [place] [facility] [address] [id number] [place] [address] Apr, [facility] [place] [facility] [address] [id number] [place] [address] Apr, [facility] [place] [facility] [address] [id number] [place] [address] Apr, [facility] [place] [facility] [address] [id number] [place] [address] Apr, [facility] [place] [facility] [address] [id number] [place] [address] Mar, [facility] [place] [facility] [address] [id number] [place] [address] Mar, [facility] [place] [facility] [address] [id number] [place] [address] Mar, [facility] [place] [facility] [address] [id number] [place] [address] Mar, [facility] [place] [facility] [address] [id number] [place] [address] Mar, [facility] [place] [facility] [address] [id number] [place] [address] Mar, [facility] [place] [facility] [address] [id number] [place] [address] Mar, [facility] [place] [facility] [address] [id number] [place] [address] Feb, [facility] [place] [facility] [address] [id number] [place] [address] 30 Feb, 2012 [facility] [place] [facility] [address] [id number] [place] [address] Feb, [facility] [place] [facility] [address] [facility] [id number] [place] [address] Feb, 2012 [facility] [place] [facility] [address] [id number] [place] [address] Feb, [facility] [place] [facility] [address] [id number] [place] [address] Feb, [facility] [place] [facility] [address] [id number] [place] [address] Jan, [facility] [place] [facility] [address] [id number] [place] [address] Jan, [facility] [place] [facility] [address] [id number] [place] [address] Jan, [facility] [place] [facility] [address] [id number] [place] [address] Jan, [facility] [place] [facility] [address] [id number] [place] [address] Jan, [facility] [place] [facility] [address] [id number] [place] [address] Jan, [facility] [place] [facility] [address] [id number] [place] [address] Jan, [facility] [place] [facility] [address] [id number] [place] [address] Jan, [facility] [place] [facility] [address] [id number] [place] [address] Jan, [facility] [place] [facility] [address] [id number] [place] [address] 29 Dec, 2012 [facility] [place] [facility] [address] [id number] [facility] [place] [address] Dec, 2012 [facility] [place] [facility] [address] [facility] [id number] [facility] [place] [address] Dec, 2012 [facility] [place] [facility] [address] [id number] [facility] [place] [address] 18 Dec, 2012 [facility] [place] [facility] [address] [id number] [place] [address] 17 Dec, 2012 [facility] [place] [facility] [address] [facility] [id number] [facility] [place] [address] 16 Dec, 2012 [facility] [place] [facility] [address] [id number] [facility] [place] [address] 15 Dec, 2012 [facility] [place] [facility] [address] [id number] [facility] [place] [address] 09 Dec, 2012 [facility] [place] [facility] [address] [id number] [facility] [place] [address] Dec, 2012 [facility] [place] [facility] [address] [id number] [facility] [place] [address] Dec, 2012 [facility] [place] [facility] [address] [id number] [facility] [place] [address] Dec, [facility] [place] [facility] [address] [id number] [place] [address] Dec, 2012 [facility] [place] [facility] [address] [id number] [place] [address] Dec, 2012 [facility] [place] [facility] [address] [id number] [facility] [place] [address] Nov, [facility] [place] [facility] [address] [id number] [place] [address] Nov, 2012 [facility] [place] [facility] [address] [id number] [place] [address] Nov, [facility] [place] [facility] [address] [id number] [place] [address] Nov, [facility] [place] [facility] [address] [facility] [id number] [facility] [place] [address] October, [facility] [place] [facility] [address] [id number] [place] [address] October, [facility] [place] [facility] [address] [id number] [place] [address] October, [facility] [place] [facility] [address] [id number] [place] [address] October, [facility] [place] [facility] [address] [id number] [facility] [place] [address] October, [facility] [place] [facility] [address] [id number] [facility] [place] [address] October, [facility] [place] [facility] [address] [id number] [place] [address] Sep, [facility] [place] [facility] [address] [id number] [place] [address] Sep, [facility] [place] [facility] [address] [id number] [place] [address] Sep, [facility] [place] [facility] [address] [id number] [place] [address] Sep, [facility] [place] [facility] [address] [id number] [place] [address] Sep, [facility] [place] [facility] [address] [id number] [place] [address] 16 Sep, 2012 [facility] [place] [facility] [address] [id number] [place] [address] Sep, [facility] [place] [facility] [address] [id number] [place] [address] Sep, [facility] [place] [facility] [address] [id number] [place] [address] Sep, [facility] [place] [facility] [address] [id number] [place] [address] Sep, [facility] [place] [facility] [address] [id number] [place] [address] Sep, [facility] [address] [id number] [place] [address] Aug, [facility] [place] [facility] [address] [id number] [place] [address] 25 Aug, 2012 [facility] [place] [facility] [address] [id number] [place] [address] Aug, [facility] [place] [facility] [address] [id number] [place] [address] Aug, [facility] [place] [facility] [address] [id number] [place] [address] 19 Aug, 2012 [facility] [address] [id number] [place] [address] 18 Aug, 2012 [facility] [place] [facility] [address] [id number] [place] [address] 17 Aug, 2012 [facility] [address] [id number] [place] [address] 15 Aug, 2012 [facility] [place] [facility] [address] [id number] [place] [address] 15 Aug, 2012 [facility] [place] [facility] [address] [id number] [place] [address] Aug, [facility] [place] [facility] [address] [id number] [place] [address] Aug, [facility] [place] [facility] [address] [id number] [place] [address] 07 Aug, 2012 [facility] [place] [facility] [address] [id number] [place] [address] 27 Jul, 2012 [facility] [place] [facility] [address] [id number] [place] [address] Jul, [facility] [place] [facility] [address] [id number] [place] [address] 26 Jul, 2012 [facility] [place] [facility] [address] [id number] [place] [address] 22 Jul, 2012 [facility] [place] [facility] [address] [id number] [place] [address] Jul, 2012 [facility] [address] [id number] [place] [address] Jul, 2012 [facility] [place] [facility] [address] [id number] [place] [address] Jul, 2012 [facility] [place] [facility] [address] [id number] [place] [address] Jul, [facility] [place] [facility] [address] [id number] [place] [address] Jul, [facility] [place] [facility] [address] [id number] [place] [address] Jul, [facility] [place] [facility] [address] [id number] [place] [address] May, [facility] [id number] [id number] May, [facility] [place] [facility] [id number] [place] [address] May, [facility] [place] [facility] [address] [id number] [place] [address] May, [facility] [place] [facility] [id number] [place] [address] May, [facility] [place] [facility] [id number] [place] [address] Apr, [facility] [place] [address] [id number] [id number] Apr, [facility] [place] [facility] [id number] [place] [address] Apr, [facility] [place] [facility] [id number] [place] [address] Mar, [facility] [id number] [id number] Mar, [facility] [place] [facility] [id number] [place] [address] Mar, [facility] [place] [id number] [id number] 13 Feb, 2012 [facility] [place] [facility] [address] [id number] [place] [address] Feb, [facility] [place] [facility] [address] [id number] [place] [address] Feb, [facility] [address] [id number] [place] [id number] 10 Feb, 2012 [facility] [address] [id number] [id number] 07 Feb, 2012 [facility] [address] [id number] [id number] Jan, [facility] [place] [facility] [id number] [place] [address] Jan, [facility] [address] [id number] [id number] Jan, [facility] [id number] [id number] Jan, [facility] [id number] [id number] Jan, [facility] [place] [facility] [address] [id number] [place] [address] Jan, [facility] [place] [facility] [address] [id number] [place] [address] Jan, [facility] [place] [facility] [id number] [place] [address] Aug, [facility] [address] [id number] [id number] Aug, [facility] [place] [facility] [address] [id number] [place] [address] Jul, [facility] [place] [facility] [id number] [place] [address] Jul, [facility] [place] [facility] [id number] [place] [address] Jul, [facility] [address] [id number] [id number] Jul, [facility] [place] [facility] [address] [id number] [place] [address] Jul, [facility] [address] [id number] [id number] Jul, [facility] [place] [facility] [address] [id number] [place] [address] Jul, [facility] [place] [address] [facility] [id number] Jul, [facility] [place] [address] [id number] [id number] Jul, [facility] [place] [address] [facility] [id number] Jul, [facility] [place] [facility] [id number] [place] [address] May, [facility] [place] [facility] [id number] [place] [address] May, [facility] [place] [facility] [id number] [place] [address] May, [facility] [place] [facility] [id number] [place] [address] Apr, [facility] [place] [facility] [id number] [place] [address] Jan, [facility] [place] [facility] [id number] [place] [address] Jan, [facility] [place] [facility] [address] [id number] [place] [address] Dec, [facility] [place] [facility] [address] [id number] [place] [address] Dec, [facility] [place] [facility] [id number] [place] [address] 16 May, 2009 [facility] [place] [facility] [id number] [place] [address] Mar, [facility] [place] [facility] [id number] [place] [address] Mar, [facility] [place] [facility] [address] [facility] [id number] [place] [address] 14 Jan, 2009 IMMUNIZATIONS No Known Immunizations SOCIAL HISTORY Never Assessed REASON FOR VISIT PLAN OF CARE VITAL SIGNS Height 63 in 2013-12-09 Weight 195 lbs 2013-12-09 Temperature 98.6 degrees Fahrenheit 2013-12-09 Heart Rate 82 bpm 2013-12-09 Respiratory Rate 20 2013-12-09 Blood pressure systolic 128 mmHg 2013-12-09 Blood pressure diastolic 78 mmHg 2013-12-09 MEDICATIONS Unknown Medications RESULTS No Results PROCEDURES Procedure Date Ordered Result Body Site PROTHROMBIN TIME December 09, 2013 INSTRUCTIONS MEDICATIONS ADMINISTERED No Known Medications [...]
--- OUTSIDE RECORDS SUMMARY | 2020-01-28 12:38 | XMS REPORT ---
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 Active 811027251 Problem History of venous thromboembolism V12.51 Active 553209587 Problem Cellulitis of unspecified part of limb L03.119 Active 703964222 Problem Gastroesophageal reflux disease without esophagitis K21.9 Active 373914886 Problem History of pulmonary embolism Z86.711 Active 752348785 Problem Pseudotumor cerebri G93.2 Active 03156362 Problem History of DVT (deep vein thrombosis) Z86.718 Active 492401502 ALLERGIES No Information ENCOUNTERS Encounter Location Date Diagnosis [place] [id number] [facility] [id number] [address] [place] [address] Apr, care home (current) use of 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 Z79.01 [facility] [address] [facility] [id number] [address] [place] [address] Apr, care home 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.01 [facility] [address] [facility] [id number] [address] [place] [address] Apr, Cellulitis of unspecified pa rt of limb L03.119 ; Allergic contact dermatitis due to adhesives L23.1 and Chronic pain syndrome G89.4 [facility] [address] [facility] [id number] [address] [place] [address] Apr, [place] [address] [place] [id number] [address] [place] [address] Apr, 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.01 ; Cellulitis of unspecified part of limb L03.119 ; Chronic pain syndrome G89.4 and Anxiety F41.9 [facility] [address] [place] [id number] [address] [place] [address] 16 Apr, 2015 [facility] [address] [place] [id number] [place] [address] Apr, [place] [address] [place] [id number] [place] [address] Mar, [place] [address] [address] Mar, [place] [address] [address] Mar, Sore throat J02.9 ; Gastroes ophageal reflux disease without esophagitis K21.9 ; Pseudotumor cerebri G93.2 ; Chronic pain syndrome G89.4 ; Choriocarcinoma C58 ; History of pulmonary embolism Z86.711 ; History of DVT (deep vein thrombosis) Z86.718 ; Anxiety F41.9 and Tachycardia R00.0 [place] [address] [address] Feb, Anxiety 300.00 and Chronic p ain 338.29 [place] [address] [place] [id number] [address] [place] [address] Feb, [place] [address] [place] [id number] [address] [place] [address] Feb, [place] [address] [address] Jan, 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.61 and Dysuria 788.1 [place] [address] [place] [id number] [place] [address] Jan, Dysuria 788.1 [facility] [address] [place] [id number] [address] [place] [address] Jan, Anxiety 300.00 and Chronic p ain 338.29 [facility] [address] [place] [id number] [place] [address] Jan, [facility] [address] [address] Jan, [facility] [address] [address] Jan, [place] [address] [address] Dec, Weakness 780.79 [place] [address] [address] Dec, care home 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 therapy V58.61 [place] [address] [address] Dec, Palpitations 785.1 ; Tremor 781.0 ; Weakness 780.79 ; care home current use of anticoagulant therapy V58.61 and Yeast vaginitis 112.1 [place] [address] [place] [id number] [address] [place] [address] Dec, [place] [address] [address] Dec, Cervicalgia 723.1 ; Tachycar yoseph 785.0 ; Pseudotumor cerebri 348.2 and History of venous thromboembolism V12.51 [place] [address] [address] Nov, [place] [address] [address] Nov, [place] [address] [address] Nov, Tachycardia 785.0 ; Pseudotu mor cerebri 348.2 ; Anxiety 300.00 and History of venous thromboembolism V12.51 [facility] [address] [id number] [address] [place] [address] Nov, [facility] [address] [id number] [address] [place] [address] 18 Nov, 2014 [facility] [address] [id number] [address] [place] [address] Nov, [facility] [address] [id number] [address] [place] [address] Nov, [facility] [address] [facility] [id number] [address] [place] [address] Nov, [facility] [address] [facility] [id number] [address] [place] [address] Nov, [facility] [address] [facility] [id number] [address] [place] [address] Nov, [facility] [address] [facility] [id number] [address] [place] [address] October, [facility] [address] [facility] [id number] [address] [place] [address] October, [facility] [address] [place] [id number] [address] [place] [address] October, Pain in thoracic spine 724.1 and Tachycardia 785.0 [facility] [address] [id number] [address] [place] [address] October, [facility] [address] [id number] [address] [place] [address] October, [facility] [address] [facility] [id number] [address] [place] [address] 14 Sep, 2014 [facility] [address] [facility] [id number] [address] [place] [address] Sep, [facility] [address] [id number] [facility] [place] [address] Aug, [facility] [address] [id number] [address] [place] [address], [place] [address] Aug, [facility] [address] [id number] [address] [place] [address], [place] [address] Aug, [facility] [address] [id number] [address] [place] [address], [place] [address] Aug, [facility] [address] [id number] [address] [place] [address], [place] [address] Aug, [facility] [address] [id number] [address] [place] [address], [place] [address] Aug, [facility] [address] [id number] [address] [place] [address], [place] [address] Aug, [facility] [address] [id number] [address] [place] [address], [place] [address] Aug, [facility] [address] [id number] [address] [place] [address], [place] [address] Aug, [facility] [address] [id number] [address] [place] [address], [place] [address] Aug, [facility] [address] [id number] [address] [place] [address], [place] [address] Aug, [facility] [address] [id number] [address] [place] [address], [place] [address] Aug, 2014 [facility] [address] [id number] [address] [place] [address], [place] [address] Jul, [facility] [address] [id number] [address] [place] [address], [place] [address] Jul, [facility] [address] [id number] [address] [place] [address], [place] [address] Jul, [facility] [address] [id number] [address] [place] [address], [place] [address] Jul, [facility] [address] [id number] [address] [place] [address], [place] [address] 23 Jul, 2014 [facility] [address] [id number] [address] [place] [address], [place] [address] 23 Jul, 2014 [facility] [address] [id number] [address] [place] [address], [place] [address] 23 Jul, 2014 [facility] [address] [id number] [address] [place] [address], [place] [address] 23 Jul, 2014 [facility] [address] [id number] [address] [place] [address], [place] [address] 20 Jul, 2014 [facility] [address] [id number] [address] [place] [address], [place] [address] 20 Jul, 2014 [facility] [address] [id number] [address] [place] [address], [place] [address] 19 Jul, 2014 [facility] [address] [id number] [address] [place] [address], [place] [address] 19 Jul, 2014 [facility] [address] [id number] [address] [place] [address], [place] [address] 17 Jul, 2014 [facility] [address] [id number] [address] [place] [address], [place] [address] 17 Jul, 2014 [facility] [address] [id number] [address] [place] [address], [place] [address] 16 Jul, 2014 [facility] [address] [id number] [address] [place] [address], [place] [address] 16 Jul, 2014 [facility] [address] [id number] [address] [place] [address], [place] [address] 16 Jul, 2014 [facility] [address] [id number] [address] [place] [address] 16 Jul, 2014 [facility] [address] [id number] [address] [place] [address] 13 Jul, 2014 [facility] [address] [id number] [address] [place] [address], [place] [address] Jul, [facility] [address] [id number] [address] [place] [address], [place] [address] Jul, [facility] [address] [id number] [address] [place] [address], [place] [address] Jul, 2014 [facility] [address] [id number] [address] [place] [address], [place] [address] Jul, 2014 [facility] [address] [id number] [address] [place] [address], [place] [address] Jul, [facility] [address] [id number] [address] [place] [address], [place] [address] Jul, [facility] [address] [id number] [address] [place] [address], [place] [address] Jul, [facility] [address] [id number] [address] [place] [address], [place] [address] Jul, [facility] [address] [id number] [address] [place] [address], [place] [address] Jul, [facility] [address] [id number] [address] [place] [address], [place] [address] Jul, [facility] [address] [id number] [address] [place] [address], [place] [address] Jul, [facility] [address] [id number] [address] [place] [address], [place] [address] Jun, [facility] [address] [id number] [address] [place] [address], [place] [address] Jun, [facility] [address] [id number] [address] [place] [address], [place] [address] Jun, [facility] [address] [id number] [address] [place] [address], [place] [address] Jun, [facility] [address] [id number] [address] [place] [address], [place] [address] Jun, [facility] [address] [id number] [address] [place] [address], [place] [address] Jun, [facility] [address] [id number] [address] [place] [address], [place] [address] Jun, [facility] [address] [id number] [address] [place] [address], [place] [address] Jun, [facility] [address] [id number] [address] [place] [address], [place] [address] Jun, [facility] [address] [id number] [address] [place] [address], [place] [address] Jun, [facility] [address] [id number] [address] [place] [address], [place] [address] Jun, [facility] [address] [id number] [address] [place] [address], [place] [address] Jun, [facility] [address] [id number] [address] [place] [address], [place] [address] Jun, [facility] [address] [id number] [address] [place] [address], [place] [address] Jun, [facility] [address] [id number] [address] [place] [address], [place] [address] Jun, [facility] [address] [id number] [address] [place] [address], [place] [address] Jun, [facility] [address] [id number] [address] [place] [address], [place] [address] Jun, [facility] [address] [id number] [address] [place] [address], [place] [address] Jun, [facility] [address] [id number] [address] [place] [address], [place] [address] Jun, [facility] [address] [id number] [address] [place] [address], [place] [address] Jun, [facility] [address] [id number] [address] [place] [address], [place] [address] May, [facility] [address] [id number] [address] [place] [address], [place] [address] May, [facility] [address] [id number] [address] [place] [address], [place] [address] May, [facility] [address] [id number] [address] [place] [address], [place] [address] May, [facility] [address] [id number] [address] [place] [address], [place] [address] May, [facility] [address] [id number] [address] [place] [address], [place] [address] May, [facility] [address] [id number] [address] [place] [address], [place] [address] May, [facility] [address] [id number] [address] [place] [address], [place] [address] May, [facility] [address] [id number] [address] [place] [address], [place] [address] May, [facility] [address] [id number] [address] [place] [address], [place] [address] May, [facility] [address] [id number] [address] [place] [address], [place] [address] May, [facility] [address] [id number] [address] [place] [address], [place] [address] 18 May, 2014 [facility] [address] [id number] [address] [place] [address], [place] [address] 18 May, 2014 [facility] [address] [id number] [address] [place] [address], [place] [address] 17 May, 2014 [facility] [address] [id number] [address] [place] [address], [place] [address] 16 May, 2014 [facility] [address] [id number] [address] [place] [address], [place] [address] 16 May, 2014 [facility] [address] [id number] [address] [place] [address], [place] [address] 15 May, 2014 [facility] [address] [id number] [address] [place] [address], [place] [address] 15 May, 2014 [facility] [address] [id number] [address] [place] [address], [place] [address] May, [facility] [address] [id number] [address] [place] [address], [place] [address] May, [facility] [address] [id number] [address] [place] [address], [place] [address] May, [facility] [address] [id number] [address] [place] [address], [place] [address] May, [facility] [address] [id number] [address] [place] [address], [place] [address] May, [facility] [address] [id number] [address] [place] [address], [place] [address] May, [facility] [address] [id number] [address] [place] [address], [place] [address] May, [facility] [address] [id number] [address] [place] [address], [place] [address] May, [facility] [address] [id number] [address] [place] [address], [place] [address] May, [facility] [address] [id number] [address] [place] [address], [place] [address] May, [facility] [address] [id number] [address] [place] [address], [place] [address] May, [facility] [address] [id number] [address] [place] [address], [place] [address] May, [facility] [address] [id number] [address] [place] [address], [place] [address] May, [facility] [address] [id number] [address] [place] [address], [place] [address] May, [facility] [address] [id number] [address] [place] [address], [place] [address] May, [facility] [address] [id number] [address] [place] [address], [place] [address] May, [facility] [address] [id number] [address] [place] [address], [place] [address] Apr, [facility] [address] [id number] [address] [place] [address], [place] [address] Apr, [facility] [address] [id number] [address] [place] [address], [place] [address] Apr, [facility] [address] [id number] [address] [place] [address], [place] [address] Apr, [facility] [address] [id number] [address] [place] [address], [place] [address] Apr, [facility] [address] [id number] [address] [place] [address], [place] [address] Apr, [facility] [address] [id number] [address] [place] [address], [place] [address] Apr, [facility] [address] [id number] [address] [place] [address], [place] [address] Apr, [facility] [address] [id number] [address] [place] [address], [place] [address] Apr, [facility] [address] [id number] [address] [place] [address], [place] [address] Apr, [facility] [address] [id number] [address] [place] [address], [place] [address] Mar, [facility] [address] [id number] [address] [place] [address], [place] [address] Mar, [facility] [address] [id number] [address] [place] [address] [address] Mar, [facility] [address] [id number] [address] [place] [address], [place] [address] 31 Mar, 2013 [facility] [address] [id number] [address] [place] [address], [place] [address] Mar, [facility] [address] [id number] [address] [place] [address], [place] [address] 30 Mar, 2014 [facility] [address] [id number] [address] [place] [address], [place] [address] Mar, [facility] [address] [id number] [address] [place] [address], [place] [address] Mar, [facility] [address] [id number] [address] [place] [address], [place] [address] Mar, [facility] [address] [id number] [address] [place] [address], [place] [address] Mar, [facility] [address] [id number] [address] [place] [address] Mar, [facility] [address] [id number] [address] [place] [address] Mar, [facility] [address] [id number] [address] [place] [address] Mar, [facility] [address] [id number] [address] [place] [id number] Mar, 2013 [facility] [address] [id number] [address] [place] [id number] Mar, 2013 [facility] [address] [id number] [address] [place] [id number] Mar, [facility] [address] [id number] [address] [place] [id number] Mar, [facility] [address] [id number] [address] [place] [id number] Mar, 2013 [facility] [address] [id number] [address] [place] [address], [place] [address] 02 Mar, 2013 [facility] [address] [id number] [address] [place] [address], [place] [address] 02 Mar, 2013 [facility] [address] [id number] [address] [place] [address], [place] [address] 05 Sep, 2013 [facility] [address] [id number] [address] [place] [address], [place] [address] 05 Sep, 2013 [facility] [address] [id number] [address] [place] [address], [place] [address] 04 Sep, 2013 [facility] [address] [id number] [address] [place] [address], [place] [address] 04 Sep, 2013 [facility] [address] [id number] [address] [place] [address], [place] [address] 03 Feb, 2013 [facility] [address] [id number] [address] [place] [address], [place] [address] 03 Feb, 2013 [facility] [address] [id number] [address] [place] [address], [place] [address] 02 Feb, 2013 [facility] [address] [id number] [address] [place] [address], [place] [address] Feb, 2013 [facility] [address] [id number] [address] [place] [address], [place] [address] 02 Feb, 2013 [facility] [address] [id number] [address] [place] [address], [place] [address] Feb, 2013 [facility] [address] [id number] [address] [place] [address], [place] [address] Jan, [facility] [address] [id number] [address] [place] [address], [place] [address] Jan, [facility] [address] [id number] [address] [place] [address], [place] [address] Jan, [facility] [address] [id number] [address] [place] [address], [place] [address] Jan, [facility] [address] [id number] [facility] [place] [address] Jan, [facility] [address] [id number] [address] [place] [address], [place] [address] Jan, [facility] [address] [id number] [address] [place] [address], [place] [address] Jan, [facility] [address] [id number] [address] [place] [address], [place] [address] Jan, [facility] [address] [id number] [address] [place] [address], [place] [address] Jan, [facility] [address] [id number] [address] [place] [address], [place] [address] Jan, [facility] [address] [id number] [address] [place] [address], [place] [address] Jan, [facility] [address] [id number] [address] [place] [address], [place] [address] Jan, [facility] [address] [id number] [address] [place] [address], [place] [address] Dec, [facility] [address] [id number] [address] [place] [address], [place] [address] Dec, [facility] [address] [id number] [address] [place] [address], [place] [address] Dec, [facility] [address] [id number] [address] [place] [address], [place] [address] Dec, [facility] [address] [id number] [address] [place] [address], [place] [address] Dec, [facility] [address] [id number] [address] [place] [address], [place] [address] Dec, [facility] [address] [id number] [address] [place] [address], [place] [address] Dec, [facility] [address] [id number] [address] [place] [address], [place] [address] Dec, [facility] [address] [id number] [facility] [place] [address] Dec, [facility] [address] [id number] [address] [place] [address], [place] [address] Dec, [facility] [address] [id number] [address] [place] [address], [place] [address] Dec, [facility] [address] [id number] [address] [place] [address], [place] [address] Dec, [facility] [address] [id number] [address] [place] [address], [place] [address] Nov, [facility] [address] [id number] [address] [place] [address], [place] [address] Nov, [facility] [address] [id number] [address] [place] [address], [place] [address] Nov, [facility] [address] [id number] [address] [place] [address], [place] [address] Nov, [facility] [address] [id number] [address] [place] [address], [place] [address] Nov, [facility] [address] [id number] [address] [place] [address], [place] [address] Nov, [facility] [address] [id number] [address] [place] [address], [place] [address] Nov, [facility] [address] [id number] [address] [place] [address], [place] [address] Nov, [facility] [address] [id number] [address] [place] [address], [place] [address] Nov, [facility] [address] [id number] [address] [place] [address], [place] [address] Nov, [facility] [address] [id number] [address] [place] [address], [place] [address] Nov, [facility] [address] [id number] [facility] [place] [address] Nov, [facility] [address] [id number] [address] [place] [address], [place] [address] Nov, [facility] [address] [id number] [address] [place] [address], [place] [address] Nov, [facility] [address] [id number] [address] [place] [address], [place] [address] October, [facility] [address] [id number] [address] [place] [address], [place] [address] October, [facility] [address] [id number] [address] [place] [address], [place] [address] October, [facility] [address] [id number] [address] [place] [address], [place] [address] October, [facility] [address] [id number] [address] [place] [address], [place] [address] October, [facility] [address] [id number] [address] [place] [address], [place] [address] October, [facility] [address] [id number] [address] [place] [address], [place] [address] October, [facility] [address] [id number] [address] [place] [address], [place] [address] October, [facility] [address] [id number] [address] [place] [address], [place] [address] October, [facility] [address] [id number] [address] [place] [address], [place] [address] October, [facility] [address] [id number] [address] [place] [address], [place] [address] October, [facility] [address] [id number] [address] [place] [address], [place] [address] October, [facility] [address] [id number] [address] [place] [address], [place] [address] Sep, [facility] [address] [id number] [facility] [place] [address] Sep, [facility] [address] [id number] [address] [place] [address], [place] [address] Sep, [facility] [address] [id number] [facility] [place] [address] Sep, [facility] [address] [id number] [address] [place] [address], [place] [address] Sep, [facility] [address] [id number] [address] [place] [address], [place] [address] Sep, [facility] [address] [id number] [address] [place] [address], [place] [address] Aug, [facility] [address] [id number] [address] [place] [address], [place] [address] Aug, [facility] [address] [id number] [address] [place] [address], [place] [address] Aug, [facility] [address] [id number] [address] [place] [address], [place] [address] Aug, [facility] [address] [id number] [address] [place] [address], [place] [address] Aug, [facility] [address] [id number] [address] [place] [address], [place] [address] Aug, [facility] [address] [id number] [address] [place] [address], [place] [address] Jul, [facility] [address] [id number] [address] [place] [address], [place] [address] Jul, [facility] [address] [id number] [address] [place] [address], [place] [address] Jul, [facility] [address] [id number] [address] [place] [address], [place] [address] Jul, [facility] [address] [id number] [address] [place] [address], [place] [address] 13 Jul, 2013 [facility] [address] [id number] [address] [place] [address], [place] [address] Jul, [facility] [address] [id number] [address] [place] [address], [place] [address] Jul, [facility] [address] [id number] [address] [place] [address], [place] [address] Jul, [facility] [address] [id number] [address] [place] [address], [place] [address] Jul, [facility] [address] [id number] [address] [place] [address], [place] [address] Jul, [facility] [address] [id number] [address] [place] [address], [place] [address] Jun, [facility] [address] [id number] [address] [place] [address], [place] [address] Jun, [facility] [address] [id number] [address] [place] [address], [place] [address] Jun, [facility] [address] [id number] [address] [place] [address], [place] [address] Jun, [facility] [address] [id number] [address] [place] [address], [place] [address] Jun, [facility] [address] [id number] [address] [place] [address], [place] [address] Jun, [facility] [address] [id number] [address] [place] [address], [place] [address] Jun, [facility] [address] [id number] [address] [place] [address], [place] [address] Jun, [facility] [address] [id number] [address] [place] [address], [place] [address] May, [facility] [address] [id number] [address] [place] [address], [place] [address] May, [facility] [address] [id number] [address] [place] [address], [place] [address] May, [facility] [address] [id number] [address] [place] [address], [place] [address] May, [facility] [address] [id number] [address] [place] [address], [place] [address] May, [facility] [address] [id number] [address] [place] [address], [place] [address] May, [facility] [address] [id number] [address] [place] [address], [place] [address] May, [facility] [address] [id number] [address] [place] [address], [place] [address] May, [facility] [address] [id number] [address] [place] [address], [place] [address] Apr, [facility] [address] [id number] [address] [place] [address] Apr, [facility] [address] [id number] [address] [place] [address], [place] [address] Apr, [facility] [address] [id number] [address] [place] [address] Apr, [facility] [address] [id number] [address] [place] [address] Apr, [facility] [address] [id number] [address] [place] [address] Apr, [facility] [address] [id number] [address] [place] [address], [place] [address] Mar, [facility] [address] [id number] [address] [place] [address] Mar, [facility] [address] [id number] [address] [place] [address], [place] [address] Mar, [facility] [address] [id number] [address] [place] [address], [place] [address] Mar, [facility] [address] [id number] [address] [place] [address], [place] [address] Mar, [facility] [address] [id number] [address] [place] [address], [place] [address] Mar, [facility] [address] [id number] [address] [place] [address], [place] [address] Mar, [facility] [address] [id number] [address] [place] [address], [place] [address] 30 Feb, 2012 [facility] [address] [id number] [address] [place] [address], [place] [address] 30 Feb, 2013 [facility] [address] [id number] [address] [place] [address], [place] [address] 27 Feb, 2013 [facility] [address] [id number] [address] [place] [address], [place] [address] Feb, 2012 [facility] [address] [id number] [address] [place] [address], [place] [address] Feb, [facility] [address] [id number] [address] [place] [address], [place] [address] Feb, [facility] [address] [id number] [address] [place] [address], [place] [address] Jan, [facility] [address] [id number] [address] [place] [address], [place] [address] Jan, [facility] [address] [id number] [address] [place] [address], [place] [address] Jan, [facility] [address] [id number] [address] [place] [address], [place] [address] Jan, [facility] [address] [id number] [address] [place] [address], [place] [address] Jan, [facility] [address] [id number] [address] [place] [address], [place] [address] Jan, [facility] [address] [id number] [address] [place] [address], [place] [address] Jan, [facility] [address] [id number] [address] [place] [address], [place] [address] Jan, [facility] [address] [id number] [address] [place] [address], [place] [address] Jan, [facility] [address] [id number] [address] [place] [address], [place] [address] Dec, [facility] [address] [id number] [address] [place] [address], [place] [address] Dec, [facility] [address] [id number] [address] [place] [address], [place] [address] Dec, [facility] [address] [id number] [address] [place] [address], [place] [address] Dec, [facility] [address] [id number] [address] [place] [address], [place] [address] Dec, [facility] [address] [id number] [address] [place] [address], [place] [address] Dec, [facility] [address] [id number] [address] [place] [address], [place] [address] Dec, [facility] [address] [id number] [address] [place] [address], [place] [address] Dec, [facility] [address] [id number] [address] [place] [address], [place] [address] Dec, [facility] [address] [id number] [address] [place] [address], [place] [address] Dec, [facility] [address] [id number] [address] [place] [address], [place] [address] Dec, [facility] [address] [id number] [address] [place] [address], [place] [address] Dec, [facility] [address] [id number] [address] [place] [address], [place] [address] Dec, [facility] [address] [id number] [address] [place] [address], [place] [address] Nov, [facility] [address] [id number] [address] [place] [address], [place] [address] Nov, [facility] [address] [id number] [address] [place] [address], [place] [address] Nov, [facility] [address] [id number] [address] [place] [address], [place] [address] Nov, [facility] [address] [id number] [address] [place] [address], [place] [address] October, [facility] [address] [id number] [address] [place] [address], [place] [address] October, [facility] [address] [id number] [address] [place] [address], [place] [address] October, [facility] [address] [id number] [address] [place] [address], [place] [address] October, [facility] [address] [id number] [address] [place] [address], [place] [address] October, [facility] [address] [id number] [address] [place] [address], [place] [address] October, [facility] [address] [id number] [address] [place] [address], [place] [address] Sep, [facility] [address] [id number] [address] [place] [address], [place] [address] Sep, [facility] [address] [id number] [address] [place] [address], [place] [address] Sep, [facility] [address] [id number] [address] [place] [address], [place] [address] Sep, [facility] [address] [id number] [address] [place] [address], [place] [address] Sep, [facility] [address] [id number] [facility] [place] [address] 16 Sep, 2012 [facility] [address] [id number] [address] [place] [address], [place] [address] 12 Sep, 2012 [facility] [address] [id number] [address] [place] [address], [place] [address] Sep, [facility] [address] [id number] [address] [place] [address], [place] [address] Sep, [facility] [address] [id number] [address] [place] [address], [place] [address] Sep, [facility] [address] [id number] [address] [place] [address], [place] [address] Sep, [facility] [address] [id number] [address] [place] [address], [place] [address] Aug, [facility] [address] [id number] [address] [place] [address], [place] [address] 25 Aug, 2012 [facility] [address] [id number] [address] [place] [address], [place] [address] 25 Aug, 2012 [facility] [address] [id number] [address] [place] [address], [place] [address] 21 Aug, 2012 [facility] [address] [id number] [address] [place] [address], [place] [address] 19 Aug, 2012 [facility] [address] [id number] [address] [place] [address], [place] [address] 18 Aug, 2012 [facility] [address] [id number] [address] [place] [address], [place] [address] 17 Aug, 2012 [facility] [address] [id number] [address] [place] [address], [place] [address] 15 Aug, 2012 [facility] [address] [id number] [address] [place] [address], [place] [address] 15 Aug, 2012 [facility] [address] [id number] [address] [place] [address], [place] [address] Aug, [facility] [address] [id number] [address] [place] [address], [place] [address] Aug, [facility] [address] [id number] [address] [place] [address], [place] [address] Aug, [facility] [address] [id number] [address] [place] [address], [place] [address] Jul, [facility] [address] [id number] [address] [place] [address], [place] [address] Jul, [facility] [address] [id number] [address] [place] [address], [place] [address] Jul, [facility] [address] [id number] [address] [place] [address], [place] [address] Jul, [facility] [address] [id number] [address] [place] [address], [place] [address] Jul, [facility] [address] [id number] [address] [place] [address], [place] [address] Jul, [facility] [address] [id number] [address] [place] [address], [place] [address] Jul, [facility] [address] [id number] [address] [place] [address], [place] [address] Jul, [facility] [address] [id number] [address] [place] [address], [place] [address] Jul, [facility] [address] [id number] [address] [place] [address], [place] [address] Jul, [facility] [address] [id number] [address] [place] [address], [place] [address] May, [facility] [address] [id number] [place] [id number] May, [facility] [address] [id number] [address] [place] [address], [place] [address] May, [facility] [address] [id number] [address] [place] [address] May, [facility] [address] [facility] [id number] [address] [place] [address] May, [facility] [address] [facility] [id number] [address] [place] [address] Apr, [facility] [address] [id number] [place] [id number] Apr, [facility] [address] [facility] [id number] [address] [place] [address] Apr, [facility] [address] [facility] [id number] [address] [place] [address] Mar, [facility] [address] [id number] [place] [id number] Mar, [facility] [address] [facility] [id number] [address] [place] [id number] Mar, [facility] [address] [id number] [place] [id number] Feb, [facility] [address] [facility] [id number] [address] [place] [phone] Feb, [facility] [address] [facility] [id number] [address] [place] [phone] Feb, [facility] [address] [id number] [place] [id number] Feb, [facility] [address] [id number] [place] [id number] Feb, [facility] [address] [id number] [place] [id number] Jan, [facility] [address] [id number] [address] [place] [address], [place] [address] Jan, [facility] [address] [id number] [place] [id number] Jan, [facility] [address] [id number] [place] [id number] Jan, [facility] [address] [id number] [place] [id number] Jan, [facility] [address] [facility] [id number] [address] [place] [address], [place] [address] Jan, [facility] [address] [facility] [id number] [address] [place] [address], [place] [address] Jan, [facility] [address] [facility] [id number] [address] [place] [address], [place] [address] Aug, [facility] [address] [id number] [place] [id number] Aug, [facility] [address] [facility] [id number] [address] [place] [address], [place] [address] Jul, [facility] [address] [facility] [id number] [address] [place] [address], [place] [address] Jul, [facility] [address] [facility] [id number] [address] [place] [address], [place] [address] Jul, [facility] [address] [id number] [place] [id number] Jul, [facility] [address] [facility] [id number] [address] [place] [address], [place] [address] Jul, [facility] [address] [id number] [place] [id number] Jul, [facility] [address] [facility] [id number] [address] [place] [address], [place] [address] Jul, [facility] [address] [id number] [place] [id number] Jul, [facility] [address] [id number] [place] [id number] Jul, [facility] [address] [id number] [place] [id number] Jul, [facility] [address] [facility] [id number] [address] [place] [address], [place] [address] May, [facility] [address] [id number] [address] [place] [id number] May, [facility] [address] [id number] [address] [place] [id number] May, [facility] [address] [id number] [address] [place] [id number] Apr, [facility] [address] [id number] [address] [place] [id number] Jan, [facility] [address] [id number] [address] [place] [id number] Jan, [facility] [address] [id number] [address] [place] [phone] Dec, [facility] [address] [id number] [address] [place] [id number] Dec, [facility] [address] [id number] [address] [place] [id number] May, [facility] [address] [id number] [address] [place] [id number] Mar, [facility] [address] [id number] [address] [place] [phone] Mar, [facility] [address] [id number] [address] [place] [id number] Jan, IMMUNIZATIONS No Known Immunizations SOCIAL HISTORY [...]
--- OUTSIDE RECORDS SUMMARY | 2020-01-28 12:38 | XMS REPORT ---
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 287180034 Problem History of venous thromboembolism V12.51 Active 387513740 Problem Cellulitis of unspecified part of limb L03.119 Active 873454916 Problem Gastroesophageal reflux disease without esophagitis K21.9 Active 764857168 Problem History of pulmonary embolism Z86.711 Active 482264139 Problem Pseudotumor cerebri G93.2 Active 07831473 Problem History of DVT (deep vein thrombosis) Z86.718 Active 074532395 ALLERGIES No Information ENCOUNTERS Encounter Location Date Diagnosis [place] [address] [address] Apr, 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 (current) use of 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 Z79.01 [place] [address] [address] Apr, skilled nursing current use of anticoagulant Z 79.01 [place] [address] [address] Apr, Cellulitis of unspecified part of limb L 03.119 ; Allergic contact dermatitis due to adhesives L23.1 and Chronic pain syndrome G89.4 [place] [address] [address] Apr, [place] [address] [address] Apr, 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 ; Cellulitis of unspecified part of limb L03.119 ; Chronic pain syndrome G89.4 and Anxiety F41.9 [place] [address] [address] Apr, [place] [address] [address] Apr, [place] [address] [address] Mar, [place] [address] [address] Mar, [address] [address] Mar, Sore throat J02.9 ; Gastroesophageal ref lux disease without esophagitis K21.9 ; Pseudotumor cerebri G93.2 ; Chronic pain syndrome G89.4 ; Choriocarcinoma C58 ; History of pulmonary embolism Z86.711 ; History of DVT (deep vein thrombosis) Z86.718 ; Anxiety F41.9 and Tachycardia R00.[address] [address] Feb, Anxiety 300.00 and Chronic pain 338.[address] [address] Feb, [place] [address] [address] Feb, [place] [address] [address] Jan, 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 t herapy V58.61 and Dysuria 788.[address] [address] Jan, Dysuria 788.[address] [address] Jan, Anxiety 300.00 and Chronic pain 338.29 [place] [address] [address] Jan, [place] [address] [address] Jan, [place] [address] [address] Jan, [place] [address] [address] Dec, Weakness 780.79 [place] [address] [address] Dec, 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 t herapy V58.61 [place] [address] [address] Dec, Palpitations 785.1 ; Tremor 781.0 ; Weak ness 780.79 ; 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 therapy V58.61 and Yeast vaginitis 112.1 [place] [address] [address] Dec, [place] [address] [address] Dec, Cervicalgia 723.1 ; Tachycardia 785.0 ; Pseudotumor cerebri 348.2 and History of venous thromboembolism V12.51 [place] [address] [address] Nov, [place] [address] [address] Nov, [place] [address] [address] Nov, Tachycardia 785.0 ; Pseudotumor cerebri 348.2 ; Anxiety 300.00 and History of venous thromboembolism V12.51 [place] [address] [address] Nov, [place] [address] [address] Nov, [facility] [address] [id number] [place] [address] 16 Nov, 2014 [facility] [address] [place] [id number] [place] [address] 12 Nov, 2014 [facility] [address] [id number] [place] [address] Nov, [facility] [address] [place] [id number] [place] [address] 08 Nov, 2014 [facility] [address] [id number] [place] [address] Nov, [facility] [address] [place] [id number] [place] [address] October, [facility] [address] [place] [id number] [place] [address] October, [facility] [address] [place] [id number] [place] [address] October, Pain in thoracic spine 724.1 and Tachyca rdia 785.0 [facility] [address] [place] [id number] [place] [address] October, [facility] [address] [place] [id number] [place] [address] October, [facility] [address] [place] [id number] [place] [address] 14 Sep, 2014 [facility] [address] [place] [id number] [place] [address] Sep, [facility] [address] [place] [id number] [place] [address] Aug, [facility] [address] [place] [id number] [place] [address] Aug, [facility] [address] [id number] [place] [address] Aug, [facility] [address] [place] [id number] [place] [address] Aug, [facility] [address] [id number] [place] [address] Aug, 2014 [facility] [address] [facility] [id number] [place] [address] Aug, 2014 [facility] [address] [id number] [place] [address] Aug, 2014 [facility] [address] [facility] [id number] [place] [address] Aug, 2014 [facility] [address] [facility] [id number] [place] [address] Aug, 2014 [facility] [address] [facility] [id number] [place] [address] Aug, 2014 [facility] [address] [facility] [id number] [place] [address] Aug, 2014 [facility] [address] [facility] [id number] [place] [address] Aug, 2014 [facility] [address] [id number] [place] [address] Jul, 2014 [facility] [address] [facility] [id number] [place] [address] Jul, 2014 [facility] [address] [id number] [place] [address] Jul, 2014 [facility] [address] [id number] [place] [address] Jul, 2014 [facility] [address] [id number] [place] [address] Jul, 2014 [facility] [address] [facility] [id number] [place] [address] Jul, 2014 [facility] [address] [facility] [id number] [place] [address] Jul, 2014 [facility] [address] [id number] [place] [address] Jul, 2014 [facility] [address] [id number] [place] [address] 20 Jul, 2014 [facility] [address] [id number] [place] [address] 20 Jul, 2014 [facility] [address] [facility] [id number] [place] [address] 19 Jul, 2014 [facility] [address] [id number] [place] [address] 19 Jul, 2014 [facility] [address] [id number] [place] [address] 17 Jul, 2014 [facility] [address] [facility] [id number] [place] [address] 17 Jul, 2014 [facility] [address] [facility] [id number] [place] [address] 16 Jul, 2014 [facility] [address] [id number] [place] [address] 16 Jul, 2014 [facility] [address] [id number] [place] [address] 16 Jul, 2014 [facility] [address] [facility] [id number] [place] [address] 16 Jul, 2014 [facility] [address] [facility] [id number] [place] [address] 13 Jul, 2014 [facility] [address] [id number] [place] [address] 13 Jul, 2014 [facility] [address] [id number] [place] [address] 13 Jul, 2014 [facility] [address] [id number] [place] [address] 13 Jul, 2014 [facility] [address] [id number] [place] [address] 12 Jul, 2014 [facility] [address] [id number] [place] [address] 12 Jul, 2014 [facility] [address] [id number] [place] [address] Jul, [facility] [address] [facility] [id number] [place] [address] Jul, [facility] [address] [id number] [place] [address] Jul, [facility] [address] [id number] [place] [address] Jul, [facility] [address] [id number] [place] [address] Jul, [facility] [address] [id number] [place] [address] Jul, [facility] [address] [id number] [place] [address] Jun, [facility] [address] [id number] [place] [address] Jun, [facility] [address] [id number] [place] [address] Jun, [facility] [address] [id number] [place] [address] Jun, [facility] [address] [id number] [place] [address] Jun, [facility] [address] [id number] [place] [address] Jun, [facility] [address] [id number] [place] [address] Jun, [facility] [address] [id number] [place] [address] Jun, [facility] [address] [id number] [place] [address] Jun, [facility] [address] [facility] [id number] [place] [address] Jun, [facility] [address] [facility] [id number] [place] [address] Jun, [facility] [address] [id number] [place] [address] Jun, [facility] [address] [facility] [id number] [place] [address] Jun, [facility] [address] [facility] [id number] [place] [address] Jun, [facility] [address] [id number] [place] [address] Jun, [facility] [address] [id number] [place] [address] Jun, [facility] [address] [id number] [place] [address] Jun, [facility] [address] [id number] [place] [address] Jun, [facility] [address] [id number] [place] [address] Jun, [facility] [address] [id number] [place] [address] Jun, [facility] [address] [id number] [place] [address] May, [facility] [address] [id number] [place] [address] May, [facility] [address] [id number] [place] [address] May, [facility] [address] [id number] [place] [address] May, [facility] [address] [id number] [place] [address] May, [facility] [address] [id number] [place] [address] May, [facility] [address] [id number] [place] [address] May, [facility] [address] [id number] [place] [address] May, [facility] [address] [facility] [id number] [place] [address] May, [facility] [address] [id number] [place] [address] May, [facility] [address] [id number] [place] [address] May, [facility] [address] [id number] [place] [address] May, [facility] [address] [facility] [id number] [place] [address] 18 May, 2014 [facility] [address] [id number] [place] [address] 17 May, 2014 [facility] [address] [id number] [place] [address] 16 May, 2014 [facility] [address] [id number] [place] [address] 16 May, 2014 [facility] [address] [id number] [place] [address] 15 May, 2014 [facility] [address] [id number] [place] [address] 15 May, 2014 [facility] [address] [id number] [place] [address] 12 May, 2014 [facility] [address] [id number] [place] [address] May, [facility] [address] [id number] [place] [address] May, [facility] [address] [id number] [place] [address] May, [facility] [address] [id number] [place] [address] May, [facility] [address] [id number] [place] [address] May, [facility] [address] [facility] [id number] [place] [address] May, [facility] [address] [id number] [place] [address] May, [facility] [address] [id number] [place] [address] May, [facility] [address] [id number] [place] [address] May, [facility] [address] [id number] [place] [address] May, [facility] [address] [id number] [place] [address] May, [facility] [address] [id number] [place] [address] May, [facility] [address] [id number] [place] [address] May, [facility] [address] [id number] [place] [address] May, [facility] [address] [id number] [place] [address] May, [facility] [address] [id number] [place] [address] Apr, [facility] [address] [id number] [place] [address] Apr, [facility] [address] [id number] [place] [address] Apr, [facility] [address] [id number] [place] [address] Apr, [facility] [address] [id number] [place] [address] Apr, [facility] [address] [id number] [place] [address] Apr, [facility] [address] [id number] [place] [address] Apr, [facility] [address] [id number] [place] [address] Apr, [facility] [address] [id number] [place] [address] Apr, [facility] [address] [id number] [place] [address] Apr, [facility] [address] [id number] [place] [address] Mar, [facility] [address] [id number] [place] [address] Mar, [facility] [address] [id number] [place] [address] Mar, [facility] [address] [id number] [place] [address] Mar, [facility] [address] [id number] [place] [address] Mar, [facility] [address] [id number] [place] [address] 30 Mar, 2014 [facility] [address] [id number] [place] [address] Mar, [facility] [address] [id number] [place] [address] 17 Mar, 2013 [facility] [address] [id number] [place] [address] 15 Mar, 2014 [facility] [address] [id number] [place] [address] 15 Mar, 2014 [facility] [address] [id number] [place] [address] 15 Mar, 2014 [facility] [address] [id number] [place] [address] 15 Mar, 2014 [facility] [address] [id number] [place] [address] 09 Mar, 2014 [facility] [address] [id number] [place] [address] Mar, 2013 [facility] [address] [id number] [place] [address] Mar, 2013 [facility] [address] [id number] [place] [address] Mar, 2013 [facility] [address] [id number] [place] [address] Mar, 2013 [facility] [address] [id number] [place] [address] Mar, 2013 [facility] [address] [id number] [place] [address] Mar, 2013 [facility] [address] [id number] [place] [address] Mar, 2013 [facility] [address] [id number] [place] [address] 05 Sep, 2013 [facility] [address] [id number] [place] [address] 05 Sep, 2013 [facility] [address] [id number] [place] [address] 04 Sep, 2013 [facility] [address] [id number] [place] [address] 04 Sep, 2013 [facility] [address] [id number] [place] [address] 03 Sep, 2013 [facility] [address] [id number] [place] [address] 03 Sep, 2013 [facility] [address] [id number] [place] [address] Sep, 2013 [facility] [address] [id number] [place] [address] Sep, 2013 [facility] [address] [id number] [place] [address] Sep, 2013 [facility] [address] [id number] [place] [address] Sep, 2013 [facility] [address] [id number] [facility] [address] Jan, [facility] [address] [id number] [facility] [place] [address] Jan, [facility] [address] [facility] [id number] [facility] [place] [address] Jan, [facility] [address] [facility] [id number] [place] [address] Jan, [facility] [address] [facility] [id number] [facility] [place] [address] Jan, [facility] [address] [id number] [facility] [place] [address] Jan, [facility] [address] [facility] [id number] [place] [address] Jan, [facility] [address] [id number] [place] [address] Jan, [facility] [address] [id number] [place] [address] Jan, [facility] [address] [id number] [place] [address] Jan, [facility] [address] [facility] [id number] [place] [address] Jan, [facility] [address] [id number] [place] [address] Jan, [facility] [address] [id number] [place] [address] Dec, [facility] [address] [id number] [place] [address] Dec, [facility] [address] [id number] [place] [address] Dec, [facility] [address] [facility] [id number] [place] [address] Dec, [facility] [address] [id number] [place] [address] Dec, [facility] [address] [facility] [id number] [place] [address] 14 Dec, 2013 [facility] [address] [facility] [id number] [place] [address] Dec, 2013 [facility] [address] [facility] [id number] [place] [address] Dec, 2013 [facility] [address] [id number] [place] [address] Dec, 2013 [facility] [address] [facility] [id number] [place] [address] Dec, 2013 [facility] [address] [id number] [place] [address] Dec, 2013 [facility] [address] [id number] [place] [address] Dec, 2013 [facility] [address] [id number] [place] [address] Nov, 2013 [facility] [address] [id number] [place] [address] Nov, [facility] [address] [id number] [place] [address] Nov, [facility] [address] [id number] [place] [address] Nov, [facility] [address] [id number] [place] [address] Nov, [facility] [address] [id number] [place] [address] Nov, [facility] [address] [id number] [place] [address] Nov, [facility] [address] [id number] [place] [address] Nov, [facility] [address] [id number] [place] [address] Nov, [facility] [address] [id number] [place] [address] Nov, [facility] [address] [id number] [place] [address] Nov, [facility] [address] [id number] [place] [address] Nov, [facility] [address] [id number] [place] [address] Nov, [facility] [address] [id number] [place] [address] Nov, [facility] [address] [id number] [place] [address] October, [facility] [address] [id number] [place] [address] October, [facility] [address] [id number] [place] [address] October, [facility] [address] [id number] [place] [address] October, [facility] [address] [id number] [place] [address] October, [facility] [address] [id number] [place] [address] October, [facility] [address] [id number] [place] [address] October, [facility] [address] [id number] [place] [address] October, [facility] [address] [id number] [place] [address] October, [facility] [address] [id number] [place] [address] October, [facility] [address] [id number] [place] [address] October, [facility] [address] [id number] [place] [address] October, [facility] [address] [id number] [facility] [address] Sep, [facility] [address] [id number] [facility] [place] [address] Sep, [facility] [address] [facility] [id number] [facility] [place] [address] Sep, [facility] [address] [id number] [place] [address] Sep, [facility] [facility] [address] [id number] [facility] [place] [address] Sep, [facility] [place] [facility] [address] [facility] [id number] [facility] [place] [address] Sep, [facility] [place] [facility] [address] [id number] [place] [address] Aug, [facility] [place] [facility] [address] [id number] [place] [address] Aug, [facility] [place] [facility] [address] [id number] [place] [address] Aug, [facility] [place] [facility] [address] [facility] [id number] [place] [address] Aug, [facility] [place] [facility] [address] [id number] [place] [address] Aug, [facility] [place] [facility] [address] [id number] [place] [address] Aug, [facility] [place] [facility] [address] [id number] [place] [address] Jul, [facility] [place] [facility] [address] [facility] [id number] [place] [address] Jul, [facility] [place] [facility] [address] [id number] [place] [address] Jul, [facility] [place] [facility] [address] [id number] [place] [address] Jul, [facility] [place] [facility] [address] [id number] [place] [address] Jul, [facility] [place] [facility] [address] [facility] [id number] [facility] [place] [address] Jul, [facility] [place] [facility] [address] [id number] [place] [address] Jul, [facility] [place] [facility] [address] [id number] [place] [address] Jul, [facility] [place] [facility] [address] [id number] [place] [address] Jul, [facility] [place] [facility] [address] [id number] [place] [address] Jul, [facility] [place] [facility] [address] [id number] [place] [address] Jun, [facility] [place] [facility] [address] [id number] [place] [address] Jun, [facility] [place] [facility] [address] [id number] [place] [address] Jun, [facility] [place] [facility] [address] [id number] [place] [address] Jun, [facility] [place] [facility] [address] [id number] [place] [address] Jun, [facility] [place] [facility] [address] [id number] [place] [address] Jun, [facility] [place] [facility] [address] [id number] [place] [address] Jun, [facility] [place] [facility] [address] [id number] [place] [address] Jun, [facility] [place] [facility] [address] [id number] [place] [address] May, [facility] [place] [facility] [address] [id number] [place] [address] May, [facility] [place] [facility] [address] [id number] [place] [address] May, [facility] [place] [facility] [address] [id number] [place] [address] May, 2012 [facility] [place] [facility] [address] [id number] [place] [address] May, [facility] [place] [facility] [address] [id number] [place] [address] May, [facility] [place] [facility] [address] [id number] [place] [address] May, [facility] [place] [facility] [address] [id number] [place] [address] May, [facility] [place] [facility] [address] [id number] [place] [address] Apr, [facility] [place] [facility] [address] [id number] [place] [address] Apr, [facility] [place] [facility] [address] [id number] [place] [address] Apr, [facility] [place] [facility] [address] [id number] [place] [address] Apr, [facility] [place] [facility] [address] [id number] [place] [address] Apr, [facility] [place] [facility] [address] [id number] [place] [address] Apr, [facility] [place] [facility] [address] [id number] [place] [address] Mar, [facility] [place] [facility] [address] [id number] [place] [address] Mar, [facility] [place] [facility] [address] [id number] [place] [address] Mar, [facility] [place] [facility] [address] [id number] [place] [address] Mar, [facility] [place] [facility] [address] [id number] [place] [address] Mar, [facility] [place] [facility] [address] [id number] [place] [address] Mar, [facility] [place] [facility] [address] [id number] [place] [address] Mar, [facility] [place] [facility] [address] [id number] [place] [address] Feb, [facility] [place] [facility] [address] [id number] [place] [address] 30 Feb, 2012 [facility] [place] [facility] [address] [id number] [place] [address] Feb, [facility] [place] [facility] [address] [facility] [id number] [place] [address] Feb, 2012 [facility] [place] [facility] [address] [id number] [place] [address] Feb, [facility] [place] [facility] [address] [id number] [place] [address] Feb, [facility] [place] [facility] [address] [id number] [place] [address] Jan, [facility] [place] [facility] [address] [id number] [place] [address] Jan, [facility] [place] [facility] [address] [id number] [place] [address] Jan, [facility] [place] [facility] [address] [id number] [place] [address] Jan, [facility] [place] [facility] [address] [id number] [place] [address] Jan, [facility] [place] [facility] [address] [id number] [place] [address] Jan, [facility] [place] [facility] [address] [id number] [place] [address] Jan, [facility] [place] [facility] [address] [id number] [place] [address] Jan, [facility] [place] [facility] [address] [id number] [place] [address] Jan, [facility] [place] [facility] [address] [id number] [place] [address] 29 Dec, 2012 [facility] [place] [facility] [address] [id number] [facility] [address] Dec, 2012 [facility] [place] [facility] [address] [facility] [id number] [facility] [place] [address] Dec, 2012 [facility] [place] [facility] [address] [id number] [facility] [place] [address] 18 Dec, 2012 [facility] [place] [facility] [address] [id number] [place] [address] 17 Dec, 2012 [facility] [place] [facility] [address] [facility] [id number] [facility] [place] [address] 16 Dec, 2012 [facility] [place] [facility] [address] [id number] [place] [address] 15 Dec, 2012 [facility] [place] [facility] [address] [id number] [place] [address] 09 Dec, 2012 [facility] [place] [facility] [address] [facility] [id number] [place] [address] Dec, 2012 [facility] [place] [facility] [address] [id number] [place] [address] Dec, 2012 [facility] [place] [facility] [address] [id number] [place] [address] Dec, [facility] [place] [facility] [address] [id number] [place] [address] Dec, 2012 [facility] [place] [facility] [address] [id number] [place] [address] Dec, 2012 [facility] [place] [facility] [address] [id number] [facility] [address] Nov, [facility] [place] [facility] [address] [id number] [place] [address] Nov, 2012 [facility] [place] [facility] [address] [id number] [place] [address] Nov, [facility] [place] [facility] [address] [id number] [place] [address] Nov, [facility] [place] [facility] [address] [facility] [id number] [facility] [address] October, [facility] [place] [facility] [address] [id number] [place] [address] October, [facility] [place] [facility] [address] [id number] [place] [address] October, [facility] [place] [facility] [address] [id number] [place] [address] October, [facility] [place] [facility] [address] [id number] [facility] [place] [address] October, [facility] [place] [facility] [address] [id number] [facility] [address] October, [facility] [place] [facility] [address] [id number] [place] [address] Sep, [facility] [place] [facility] [address] [id number] [place] [address] Sep, [facility] [place] [facility] [address] [facility] [id number] [place] [address] Sep, [facility] [place] [facility] [address] [id number] [place] [address] Sep, [facility] [place] [facility] [address] [id number] [place] [address] Sep, [facility] [place] [facility] [address] [facility] [id number] [place] [address] 16 Sep, 2012 [facility] [place] [facility] [address] [id number] [place] [address] Sep, [facility] [place] [facility] [address] [id number] [place] [address] Sep, [facility] [place] [facility] [address] [id number] [place] [address] Sep, [facility] [place] [facility] [address] [id number] [place] [address] Sep, [facility] [place] [facility] [address] [id number] [place] [address] Sep, [facility] [id number] [place] [address] Aug, [facility] [place] [facility] [address] [id number] [place] [address] 25 Aug, 2012 [facility] [place] [facility] [address] [id number] [place] [address] Aug, [facility] [place] [facility] [address] [id number] [place] [address] Aug, [facility] [place] [facility] [address] [id number] [place] [address] 19 Aug, 2012 [facility] [facility] [address] [id number] [place] [address] 18 Aug, 2012 [facility] [place] [facility] [address] [id number] [place] [address] 17 Aug, 2012 [facility] [address] [id number] [place] [address] 15 Aug, 2012 [facility] [place] [facility] [address] [facility] [id number] [place] [address] 15 Aug, 2012 [facility] [place] [facility] [address] [id number] [place] [address] Aug, [facility] [place] [facility] [address] [id number] [place] [address] Aug, [facility] [place] [facility] [address] [id number] [place] [address] 07 Aug, 2012 [facility] [place] [facility] [address] [id number] [place] [address] 27 Jul, 2012 [facility] [place] [facility] [address] [id number] [place] [address] Jul, [facility] [place] [facility] [address] [id number] [place] [address] 26 Jul, 2012 [facility] [place] [facility] [address] [id number] [place] [address] 22 Jul, 2012 [facility] [place] [facility] [address] [id number] [place] [address] Jul, 2012 [facility] [facility] [address] [id number] [place] [address] Jul, 2012 [facility] [place] [facility] [address] [id number] [place] [address] Jul, 2012 [facility] [place] [facility] [address] [id number] [place] [address] Jul, [facility] [place] [facility] [address] [facility] [id number] [place] [address] Jul, [facility] [place] [facility] [address] [id number] [place] [address] Jul, [facility] [place] [facility] [address] [id number] [place] [address] May, [facility] [id number] [address] May, [facility] [place] [facility] [id number] [place] [address] May, [facility] [place] [facility] [address] [id number] [place] [address] May, [facility] [place] [facility] [id number] [place] [address] May, [facility] [place] [facility] [id number] [place] [address] Apr, [facility] [place] [id number] [id number] Apr, [facility] [place] [facility] [id number] [place] [address] Apr, [facility] [place] [facility] [id number] [place] [address] Mar, [facility] [place] [id number] [id number] Mar, [facility] [place] [facility] [id number] [place] [address] Mar, [facility] [place] [id number] [id number] 13 Feb, 2012 [facility] [place] [facility] [address] [id number] [place] [address] Feb, [facility] [place] [facility] [address] [id number] [place] [address] Feb, [facility] [address] [facility] [id number] 10 Feb, 2012 [facility] [address] [facility] [id number] 07 Feb, 2012 [facility] [address] [facility] [id number] Jan, [facility] [place] [facility] [id number] [place] [address] Jan, [facility] [address] [facility] [id number] Jan, [facility] [id number] [id number] Jan, [facility] [address] [id number] [id number] Jan, [facility] [place] [facility] [address] [id number] [place] [address] Jan, [facility] [place] [facility] [address] [id number] [place] [address] Jan, [facility] [place] [facility] [id number] [place] [address] Aug, [facility] [address] [facility] [id number] Aug, [facility] [place] [facility] [address] [id number] [place] [address] Jul, [facility] [place] [facility] [id number] [place] [address] Jul, [facility] [place] [facility] [id number] [place] [address] Jul, [facility] [id number] [id number] Jul, [facility] [place] [facility] [address] [id number] [place] [address] Jul, [facility] [address] [facility] [id number] Jul, [facility] [place] [facility] [id number] [place] [address] Jul, [facility] [place] [address] [facility] [id number] Jul, [facility] [place] [address] [facility] [id number] Jul, [facility] [place] [address] [facility] [id number] Jul, [facility] [place] [facility] [id number] [place] [address] May, [facility] [place] [facility] [id number] [place] [address] May, [facility] [place] [facility] [id number] [place] [address] May, [facility] [place] [facility] [id number] [place] [address] Apr, [facility] [place] [facility] [id number] [place] [address] Jan, [facility] [place] [facility] [id number] [place] [address] Jan, [facility] [place] [facility] [id number] [place] [address] Dec, [facility] [place] [facility] [address] [id number] [place] [address] Dec, [facility] [place] [facility] [id number] [place] [address] 16 May, 2009 [facility] [place] [facility] [id number] [place] [address] Mar, [facility] [place] [facility] [id number] [place] [address] Mar, [facility] [place] [facility] [address] [facility] [id number] [place] [address] Jan, IMMUNIZATIONS No Known Immunizations SOCIAL HISTORY [...]
--- OUTSIDE RECORDS SUMMARY | 2020-01-28 12:39 | XMS REPORT ---
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 Active 543939780 Problem History of venous thromboembolism V12.51 Active 449824882 Problem Cellulitis of unspecified part of limb L03.119 Active 493896700 Problem Gastroesophageal reflux disease without esophagitis K21.9 Active 378087336 Problem History of pulmonary embolism Z86.711 Active 872696049 Problem Pseudotumor cerebri G93.2 Active 35553792 Problem History of DVT (deep vein thrombosis) Z86.718 Active 702769202 ALLERGIES No Information ENCOUNTERS Encounter Location Date Diagnosis [place] [id number] [facility] [id number] [address] [place] [id number] Apr, longterm (current) use of 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 Z79.01 [facility] [address] [facility] [id number] [address] [place] [address] Apr, longterm 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.01 [facility] [address] [facility] [id number] [address] [place] [address] Apr, Cellulitis of unspecified pa rt of limb L03.119 ; Allergic contact dermatitis due to adhesives L23.1 and Chronic pain syndrome G89.4 [facility] [address] [facility] [id number] [address] [place] [address] Apr, [place] [address] [address] [place] [id number] [address] [place] [address] Apr, 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.01 ; Cellulitis of unspecified part of limb L03.119 ; Chronic pain syndrome G89.4 and Anxiety F41.9 [facility] [address] [place] [id number] [address] [place] [address] 16 Apr, 2015 [facility] [address] [place] [id number] [place] [address] Apr, [place] [address] [place] [id number] [place] [address] Mar, [place] [address] [address] Mar, [place] [address] [address] Mar, Sore throat J02.9 ; Gastroes ophageal reflux disease without esophagitis K21.9 ; Pseudotumor cerebri G93.2 ; Chronic pain syndrome G89.4 ; Choriocarcinoma C58 ; History of pulmonary embolism Z86.711 ; History of DVT (deep vein thrombosis) Z86.718 ; Anxiety F41.9 and Tachycardia R00.0 [place] [address] [address] Feb, Anxiety 300.00 and Chronic p ain 338.29 [place] [address] [place] [id number] [address] [place] [address] Feb, [place] [address] [place] [id number] [address] [place] [address] Feb, [place] [address] [address] Jan, 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 therapy V58.61 and Dysuria 788.1 [place] [address] [place] [id number] [place] [address] Jan, Dysuria 788.1 [facility] [address] [place] [id number] [address] [place] [address] Jan, Anxiety 300.00 and Chronic p ain 338.29 [facility] [address] [place] [id number] [place] [address] Jan, [facility] [address] [address] Jan, [facility] [address] [address] Jan, [place] [address] [address] Dec, Weakness 780.79 [place] [address] [address] Dec, longterm 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 therapy V58.61 [place] [address] [address] Dec, Palpitations 785.1 ; Tremor 781.0 ; Weakness 780.79 ; longterm current use of anticoagulant therapy V58.61 and Yeast vaginitis 112.1 [place] [address] [place] [id number] [address] [place] [address] Dec, [place] [address] [address] Dec, Cervicalgia 723.1 ; Tachycar yoseph 785.0 ; Pseudotumor cerebri 348.2 and History of venous thromboembolism V12.51 [place] [address] [address] Nov, [place] [address] [address] Nov, [place] [address] [address] Nov, Tachycardia 785.0 ; Pseudotu mor cerebri 348.2 ; Anxiety 300.00 and History of venous thromboembolism V12.51 [facility] [address] [id number] [address] [place] [address] Nov, [facility] [address] [id number] [address] [place] [address] 18 Nov, 2014 [facility] [address] [id number] [address] [place] [address] Nov, [facility] [address] [id number] [address] [place] [address] Nov, [facility] [address] [facility] [id number] [address] [place] [address] Nov, [facility] [address] [facility] [id number] [address] [place] [address] Nov, [facility] [address] [facility] [id number] [address] [place] [address] Nov, [facility] [address] [facility] [id number] [address] [place] [address] October, [facility] [address] [facility] [id number] [address] [place] [address] October, [facility] [address] [place] [id number] [address] [place] [address] October, Pain in thoracic spine 724.1 and Tachycardia 785.0 [facility] [address] [id number] [address] [place] [address] October, [facility] [address] [id number] [address] [place] [address] October, [facility] [address] [facility] [id number] [address] [place] [id number] 14 Sep, 2014 [facility] [address] [facility] [id number] [address] [place] [address] Sep, [facility] [address] [id number] [facility] [address] Aug, [facility] [address] [id number] [address] [place] [address], [place] [address] Aug, [facility] [address] [id number] [address] [place] [address], [place] [address] Aug, [facility] [address] [id number] [address] [place] [address], [place] [address] Aug, [facility] [address] [id number] [address] [place] [address], [place] [address] Aug, [facility] [address] [id number] [address] [place] [address], [place] [address] Aug, [facility] [address] [id number] [address] [place] [address], [place] [address] Aug, [facility] [address] [id number] [address] [place] [address], [place] [address] Aug, [facility] [address] [id number] [address] [place] [address], [place] [address] Aug, [facility] [address] [id number] [address] [place] [address], [place] [address] Aug, [facility] [address] [id number] [address] [place] [address], [place] [address] Aug, [facility] [address] [id number] [address] [place] [address], [place] [address] Aug, 2014 [facility] [address] [id number] [address] [place] [address], [place] [address] Jul, [facility] [address] [id number] [address] [place] [address], [place] [address] Jul, [facility] [address] [id number] [address] [place] [address], [place] [address] Jul, [facility] [address] [id number] [address] [place] [address], [place] [address] Jul, [facility] [address] [id number] [address] [place] [address], [place] [address] 23 Jul, 2014 [facility] [address] [id number] [address] [place] [address], [place] [address] 23 Jul, 2014 [facility] [address] [id number] [address] [place] [address], [place] [address] 23 Jul, 2014 [facility] [address] [id number] [address] [place] [address], [place] [address] 23 Jul, 2014 [facility] [address] [id number] [address] [place] [address], [place] [address] 20 Jul, 2014 [facility] [address] [id number] [address] [place] [address], [place] [address] 20 Jul, 2014 [facility] [address] [id number] [address] [place] [address], [place] [address] 19 Jul, 2014 [facility] [address] [id number] [address] [place] [address], [place] [address] 19 Jul, 2014 [facility] [address] [id number] [address] [place] [address], [place] [address] 17 Jul, 2014 [facility] [address] [id number] [address] [place] [address], [place] [address] 17 Jul, 2014 [facility] [address] [id number] [address] [place] [address], [place] [address] 16 Jul, 2014 [facility] [address] [id number] [address] [place] [address], [place] [address] 16 Jul, 2014 [facility] [address] [id number] [address] [place] [address], [place] [address] 16 Jul, 2014 [facility] [address] [id number] [address] [place] [address] 16 Jul, 2014 [facility] [address] [id number] [address] [place] [address] 13 Jul, 2014 [facility] [address] [id number] [address] [place] [address], [place] [address] Jul, [facility] [address] [id number] [address] [place] [address], [place] [address] Jul, [facility] [address] [id number] [address] [place] [address], [place] [address] Jul, 2014 [facility] [address] [id number] [address] [place] [address], [place] [address] Jul, 2014 [facility] [address] [id number] [address] [place] [address], [place] [address] Jul, [facility] [address] [id number] [address] [place] [address], [place] [address] Jul, [facility] [address] [id number] [address] [place] [address], [place] [address] Jul, [facility] [address] [id number] [address] [place] [address], [place] [address] Jul, [facility] [address] [id number] [address] [place] [address], [place] [address] Jul, [facility] [address] [id number] [address] [place] [address], [place] [address] Jul, [facility] [address] [id number] [address] [place] [address], [place] [address] Jul, [facility] [address] [id number] [address] [place] [address], [place] [address] Jun, [facility] [address] [id number] [address] [place] [address], [place] [address] Jun, [facility] [address] [id number] [address] [place] [address], [place] [address] Jun, [facility] [address] [id number] [address] [place] [address], [place] [address] Jun, [facility] [address] [id number] [address] [place] [address], [place] [address] Jun, [facility] [address] [id number] [address] [place] [address], [place] [address] Jun, [facility] [address] [id number] [address] [place] [address], [place] [address] Jun, [facility] [address] [id number] [address] [place] [address], [place] [address] Jun, [facility] [address] [id number] [address] [place] [address], [place] [address] Jun, [facility] [address] [id number] [address] [place] [address], [place] [address] Jun, [facility] [address] [id number] [address] [place] [address], [place] [address] Jun, [facility] [address] [id number] [address] [place] [address], [place] [address] Jun, [facility] [address] [id number] [address] [place] [address], [place] [address] Jun, [facility] [address] [id number] [address] [place] [address], [place] [address] Jun, [facility] [address] [id number] [address] [place] [address], [place] [address] Jun, [facility] [address] [id number] [address] [place] [address], [place] [address] Jun, [facility] [address] [id number] [address] [place] [address], [place] [address] Jun, [facility] [address] [id number] [address] [place] [address], [place] [address] Jun, [facility] [address] [id number] [address] [place] [address], [place] [address] Jun, [facility] [address] [id number] [address] [place] [address], [place] [address] Jun, [facility] [address] [id number] [address] [place] [address], [place] [address] May, [facility] [address] [id number] [address] [place] [address], [place] [address] May, [facility] [address] [id number] [address] [place] [address], [place] [address] May, [facility] [address] [id number] [address] [place] [address], [place] [address] May, [facility] [address] [id number] [address] [place] [address], [place] [address] May, [facility] [address] [id number] [address] [place] [address], [place] [address] May, [facility] [address] [id number] [address] [place] [address], [place] [address] May, [facility] [address] [id number] [address] [place] [address], [place] [address] May, [facility] [address] [id number] [address] [place] [address], [place] [address] May, [facility] [address] [id number] [address] [place] [address], [place] [address] May, [facility] [address] [id number] [address] [place] [address], [place] [address] May, [facility] [address] [id number] [address] [place] [address], [place] [address] 18 May, 2014 [facility] [address] [id number] [address] [place] [address], [place] [address] 18 May, 2014 [facility] [address] [id number] [address] [place] [address], [place] [address] 17 May, 2014 [facility] [address] [id number] [address] [place] [address], [place] [address] 16 May, 2014 [facility] [address] [id number] [address] [place] [address], [place] [address] 16 May, 2014 [facility] [address] [id number] [address] [place] [address], [place] [address] 15 May, 2014 [facility] [address] [id number] [address] [place] [address], [place] [address] 15 May, 2014 [facility] [address] [id number] [address] [place] [address], [place] [address] May, [facility] [address] [id number] [address] [place] [address], [place] [address] May, [facility] [address] [id number] [address] [place] [address], [place] [address] May, [facility] [address] [id number] [address] [place] [address], [place] [address] May, [facility] [address] [id number] [address] [place] [address], [place] [address] May, [facility] [address] [id number] [address] [place] [address], [place] [address] May, [facility] [address] [id number] [address] [place] [address], [place] [address] May, [facility] [address] [id number] [address] [place] [address], [place] [address] May, [facility] [address] [id number] [address] [place] [address], [place] [address] May, [facility] [address] [id number] [address] [place] [address], [place] [address] May, [facility] [address] [id number] [address] [place] [address], [place] [address] May, [facility] [address] [id number] [address] [place] [address], [place] [address] May, [facility] [address] [id number] [address] [place] [address], [place] [address] May, [facility] [address] [id number] [address] [place] [address], [place] [address] May, [facility] [address] [id number] [address] [place] [address], [place] [address] May, [facility] [address] [id number] [address] [place] [address], [place] [address] May, [facility] [address] [id number] [address] [place] [address], [place] [address] Apr, [facility] [address] [id number] [address] [place] [address], [place] [address] Apr, [facility] [address] [id number] [address] [place] [address], [place] [address] Apr, [facility] [address] [id number] [address] [place] [address], [place] [address] Apr, [facility] [address] [id number] [address] [place] [address], [place] [address] Apr, [facility] [address] [id number] [address] [place] [address], [place] [address] Apr, [facility] [address] [id number] [address] [place] [address], [place] [address] Apr, [facility] [address] [id number] [address] [place] [address], [place] [address] Apr, [facility] [address] [id number] [address] [place] [address], [place] [address] Apr, [facility] [address] [id number] [address] [place] [address], [place] [address] Apr, [facility] [address] [id number] [address] [place] [address], [place] [address] Mar, [facility] [address] [id number] [address] [place] [address], [place] [address] Mar, [facility] [address] [id number] [address] [place] [address] [address] Mar, [facility] [address] [id number] [address] [place] [address], [place] [address] 31 Mar, 2013 [facility] [address] [id number] [address] [place] [address], [place] [id number] Mar, [facility] [address] [id number] [address] [place] [address], [place] [id number] 30 Mar, 2014 [facility] [address] [id number] [address] [place] [address], [place] [id number] Mar, [facility] [address] [id number] [address] [place] [address], [place] [id number] Mar, [facility] [address] [id number] [address] [place] [address], [place] [id number] Mar, [facility] [address] [id number] [address] [place] [address], [place] [id number] Mar, [facility] [address] [id number] [address] [place] [id number] Mar, [facility] [address] [id number] [address] [place] [id number] Mar, [facility] [address] [id number] [address] [place] [id number] Mar, [facility] [address] [id number] [address] [place] [id number] Mar, 2013 [facility] [address] [id number] [address] [place] [id number] Mar, 2013 [facility] [address] [id number] [address] [place] [id number] Mar, [facility] [address] [id number] [address] [place] [id number] Mar, [facility] [address] [id number] [address] [place] [id number] Mar, 2013 [facility] [address] [id number] [address] [place] [address], [place] [id number] 02 Mar, 2013 [facility] [address] [id number] [address] [place] [address], [place] [id number] 02 Mar, 2013 [facility] [address] [id number] [address] [place] [address], [place] [id number] 05 Sep, 2013 [facility] [address] [id number] [address] [place] [address], [place] [id number] 05 Sep, 2013 [facility] [address] [id number] [address] [place] [address], [place] [id number] 04 Sep, 2013 [facility] [address] [id number] [address] [place] [address], [place] [id number] 04 Sep, 2013 [facility] [address] [id number] [address] [place] [address], [place] [id number] 03 Feb, 2013 [facility] [address] [id number] [address] [place] [address], [place] [id number] 03 Feb, 2013 [facility] [address] [id number] [address] [place] [address], [place] [id number] 02 Feb, 2013 [facility] [address] [id number] [address] [place] [address], [place] [id number] Feb, 2013 [facility] [address] [id number] [address] [place] [address], [place] [id number] 02 Feb, 2013 [facility] [address] [id number] [address] [place] [address], [place] [id number] Feb, 2013 [facility] [address] [id number] [address] [place] [address], [place] [id number] Jan, [facility] [address] [id number] [address] [place] [address], [place] [id number] Jan, [facility] [address] [id number] [address] [place] [address], [place] [id number] Jan, [facility] [address] [id number] [address] [place] [address], [place] [id number] Jan, [facility] [address] [id number] [address] [address] Jan, [facility] [address] [id number] [address] [place] [address], [place] [id number] Jan, [facility] [address] [id number] [address] [place] [address], [place] [id number] Jan, [facility] [address] [id number] [address] [place] [address], [place] [id number] Jan, [facility] [address] [id number] [address] [place] [address], [place] [address] Jan, [facility] [address] [id number] [address] [place] [address], [place] [id number] Jan, [facility] [address] [id number] [address] [place] [address], [place] [id number] Jan, [facility] [address] [id number] [address] [place] [address], [place] [id number] Jan, [facility] [address] [id number] [address] [place] [address], [place] [id number] Dec, [facility] [address] [id number] [address] [place] [address], [place] [id number] Dec, [facility] [address] [id number] [address] [place] [address], [place] [id number] Dec, [facility] [address] [id number] [address] [place] [address], [place] [id number] Dec, [facility] [address] [id number] [address] [place] [address], [place] [address] Dec, [facility] [address] [id number] [address] [place] [address], [place] [address] Dec, [facility] [address] [id number] [address] [place] [address], [place] [address] Dec, [facility] [address] [id number] [address] [place] [address], [place] [address] Dec, [facility] [address] [id number] [facility] [address] Dec, [facility] [address] [id number] [address] [place] [address], [place] [address] Dec, [facility] [address] [id number] [address] [place] [address], [place] [address] Dec, [facility] [address] [id number] [address] [place] [address], [place] [address] Dec, [facility] [address] [id number] [address] [place] [address], [place] [address] Nov, [facility] [address] [id number] [address] [place] [address], [place] [address] Nov, [facility] [address] [id number] [address] [place] [address], [place] [address] Nov, [facility] [address] [id number] [address] [place] [address], [place] [address] Nov, [facility] [address] [id number] [address] [place] [address], [place] [address] Nov, [facility] [address] [id number] [address] [place] [address], [place] [address] Nov, [facility] [address] [id number] [address] [place] [address], [place] [address] Nov, [facility] [address] [id number] [address] [place] [address], [place] [address] Nov, [facility] [address] [id number] [address] [place] [address], [place] [address] Nov, [facility] [address] [id number] [address] [place] [address], [place] [address] Nov, [facility] [address] [id number] [address] [place] [address], [place] [address] Nov, [facility] [address] [id number] [facility] [address] Nov, [facility] [address] [id number] [address] [place] [address], [place] [address] Nov, [facility] [address] [id number] [address] [place] [address], [place] [address] Nov, [facility] [address] [id number] [address] [place] [address], [place] [address] October, [facility] [address] [id number] [address] [place] [address], [place] [address] October, [facility] [address] [id number] [address] [place] [address], [place] [address] October, [facility] [address] [id number] [address] [place] [address], [place] [address] October, [facility] [address] [id number] [address] [place] [address], [place] [address] October, [facility] [address] [id number] [address] [place] [address], [place] [address] October, [facility] [address] [id number] [address] [place] [address], [place] [address] October, [facility] [address] [id number] [address] [place] [address], [place] [address] October, [facility] [address] [id number] [address] [place] [address], [place] [address] October, [facility] [address] [id number] [address] [place] [address], [place] [address] October, [facility] [address] [id number] [address] [place] [address], [place] [address] October, [facility] [address] [id number] [address] [place] [address], [place] [address] October, [facility] [address] [id number] [address] [place] [address], [place] [address] Sep, [facility] [address] [id number] [facility] [address] Sep, [facility] [address] [id number] [address] [place] [address], [place] [address] Sep, [facility] [address] [id number] [facility] [address] Sep, [facility] [address] [id number] [address] [place] [address], [place] [address] Sep, [facility] [address] [id number] [address] [place] [address], [place] [address] Sep, [facility] [address] [id number] [address] [place] [address], [place] [address] Aug, [facility] [address] [id number] [address] [place] [address], [place] [address] Aug, [facility] [address] [id number] [address] [place] [address], [place] [address] Aug, [facility] [address] [id number] [address] [place] [address], [place] [address] Aug, [facility] [address] [id number] [address] [place] [address], [place] [address] Aug, [facility] [address] [id number] [address] [place] [address], [place] [address] Aug, [facility] [address] [id number] [address] [place] [address], [place] [address] Jul, [facility] [address] [id number] [address] [place] [address], [place] [address] Jul, [facility] [address] [id number] [address] [place] [address], [place] [address] Jul, [facility] [address] [id number] [address] [place] [address], [place] [address] Jul, [facility] [address] [id number] [address] [place] [address], [place] [address] 13 Jul, 2013 [facility] [address] [id number] [address] [place] [address], [place] [address] Jul, [facility] [address] [id number] [address] [place] [address], [place] [address] Jul, [facility] [address] [id number] [address] [place] [address], [place] [address] Jul, [facility] [address] [id number] [address] [place] [address], [place] [address] Jul, [facility] [address] [id number] [address] [place] [address], [place] [address] Jul, [facility] [address] [id number] [address] [place] [address], [place] [address] Jun, [facility] [address] [id number] [address] [place] [address], [place] [address] Jun, [facility] [address] [id number] [address] [place] [address], [place] [address] Jun, [facility] [address] [id number] [address] [place] [address], [place] [address] Jun, [facility] [address] [id number] [address] [place] [address], [place] [address] Jun, [facility] [address] [id number] [address] [place] [address], [place] [address] Jun, [facility] [address] [id number] [address] [place] [address], [place] [address] Jun, [facility] [address] [id number] [address] [place] [address], [place] [address] Jun, [facility] [address] [id number] [address] [place] [address], [place] [address] May, [facility] [address] [id number] [address] [place] [address], [place] [address] May, [facility] [address] [id number] [address] [place] [address], [place] [address] May, [facility] [address] [id number] [address] [place] [address], [place] [address] May, [facility] [address] [id number] [address] [place] [address], [place] [address] May, [facility] [address] [id number] [address] [place] [address], [place] [address] May, [facility] [address] [id number] [address] [place] [address], [place] [address] May, [facility] [address] [id number] [address] [place] [address], [place] [address] May, [facility] [address] [id number] [address] [place] [address], [place] [address] Apr, [facility] [address] [id number] [address] [place] [address] Apr, [facility] [address] [id number] [address] [place] [address], [place] [address] Apr, [facility] [address] [id number] [address] [place] [address] Apr, [facility] [address] [id number] [address] [place] [address] Apr, [facility] [address] [id number] [address] [place] [address] Apr, [facility] [address] [id number] [address] [place] [address], [place] [address] Mar, [facility] [address] [id number] [address] [place] [address] Mar, [facility] [address] [id number] [address] [place] [address], [place] [address] Mar, [facility] [address] [id number] [address] [place] [address], [place] [address] Mar, [facility] [address] [id number] [address] [place] [address], [place] [address] Mar, [facility] [address] [id number] [address] [place] [address], [place] [address] Mar, [facility] [address] [id number] [address] [place] [address], [place] [address] Mar, [facility] [address] [id number] [address] [place] [address], [place] [address] 30 Feb, 2012 [facility] [address] [id number] [address] [place] [address], [place] [address] 30 Feb, 2013 [facility] [address] [id number] [address] [place] [address], [place] [address] 27 Feb, 2013 [facility] [address] [id number] [address] [place] [address], [place] [address] Feb, 2012 [facility] [address] [id number] [address] [place] [address], [place] [address] Feb, [facility] [address] [id number] [address] [place] [address], [place] [address] Feb, [facility] [address] [id number] [address] [place] [address], [place] [address] Jan, [facility] [address] [id number] [address] [place] [address], [place] [address] Jan, [facility] [address] [id number] [address] [place] [address], [place] [address] Jan, [facility] [address] [id number] [address] [place] [address], [place] [address] Jan, [facility] [address] [id number] [address] [place] [address], [place] [address] Jan, [facility] [address] [id number] [address] [place] [address], [place] [address] Jan, [facility] [address] [id number] [address] [place] [address], [place] [address] Jan, [facility] [address] [id number] [address] [place] [address], [place] [address] Jan, [facility] [address] [id number] [address] [place] [address], [place] [address] Jan, [facility] [address] [id number] [address] [place] [address], [place] [address] Dec, [facility] [address] [id number] [address] [place] [address], [place] [address] Dec, [facility] [address] [id number] [address] [place] [address], [place] [address] Dec, [facility] [address] [id number] [address] [place] [address], [place] [address] Dec, [facility] [address] [id number] [address] [place] [address], [place] [address] Dec, [facility] [address] [id number] [address] [place] [address], [place] [address] Dec, [facility] [address] [id number] [address] [place] [address], [place] [address] Dec, [facility] [address] [id number] [address] [place] [address], [place] [address] Dec, [facility] [address] [id number] [address] [place] [address], [place] [address] Dec, [facility] [address] [id number] [address] [place] [address], [place] [address] Dec, [facility] [address] [id number] [address] [place] [address], [place] [address] Dec, [facility] [address] [id number] [address] [place] [address], [place] [address] Dec, [facility] [address] [id number] [address] [place] [address], [place] [address] Dec, [facility] [address] [id number] [address] [place] [address], [place] [address] Nov, [facility] [address] [id number] [address] [place] [address], [place] [address] Nov, [facility] [address] [id number] [address] [place] [address], [place] [address] Nov, [facility] [address] [id number] [address] [place] [address], [place] [address] Nov, [facility] [address] [id number] [address] [place] [address], [place] [address] October, [facility] [address] [id number] [address] [place] [address], [place] [address] October, [facility] [address] [id number] [address] [place] [address], [place] [address] October, [facility] [address] [id number] [address] [place] [address], [place] [address] October, [facility] [address] [id number] [address] [place] [address], [place] [address] October, [facility] [address] [id number] [address] [place] [address], [place] [address] October, [facility] [address] [id number] [address] [place] [address], [place] [address] Sep, [facility] [address] [id number] [address] [place] [address], [place] [address] Sep, [facility] [address] [id number] [address] [place] [address], [place] [address] Sep, [facility] [address] [id number] [address] [place] [address], [place] [address] Sep, [facility] [address] [id number] [address] [place] [address], [place] [address] Sep, [facility] [address] [id number] [address] [address] 16 Sep, 2012 [facility] [address] [id number] [address] [place] [address], [place] [address] 12 Sep, 2012 [facility] [address] [id number] [address] [place] [address], [place] [address] Sep, [facility] [address] [id number] [address] [place] [address], [place] [address] Sep, [facility] [address] [id number] [address] [place] [address], [place] [address] Sep, [facility] [address] [id number] [address] [place] [address], [place] [address] Sep, [facility] [address] [id number] [address] [place] [address], [place] [address] Aug, [facility] [address] [id number] [address] [place] [address], [place] [address] 25 Aug, 2012 [facility] [address] [id number] [address] [place] [address], [place] [address] 25 Aug, 2012 [facility] [address] [id number] [address] [place] [address], [place] [address] 21 Aug, 2012 [facility] [address] [id number] [address] [place] [address], [place] [address] 19 Aug, 2012 [facility] [address] [id number] [address] [place] [address], [place] [address] 18 Aug, 2012 [facility] [address] [id number] [address] [place] [address], [place] [address] 17 Aug, 2012 [facility] [address] [id number] [address] [place] [address], [place] [address] 15 Aug, 2012 [facility] [address] [id number] [address] [place] [address], [place] [address] 15 Aug, 2012 [facility] [address] [id number] [address] [place] [address], [place] [address] Aug, [facility] [address] [id number] [address] [place] [address], [place] [address] Aug, [facility] [address] [id number] [address] [place] [address], [place] [address] Aug, [facility] [address] [id number] [address] [place] [address], [place] [address] Jul, [facility] [address] [id number] [address] [place] [address], [place] [address] Jul, [facility] [address] [id number] [address] [place] [address], [place] [address] Jul, [facility] [address] [id number] [address] [place] [address], [place] [address] Jul, [facility] [address] [id number] [address] [place] [address], [place] [address] Jul, [facility] [address] [id number] [address] [place] [address], [place] [address] Jul, [facility] [address] [id number] [address] [place] [address], [place] [address] Jul, [facility] [address] [id number] [address] [place] [address], [place] [address] Jul, [facility] [address] [id number] [address] [place] [address], [place] [address] Jul, [facility] [address] [id number] [address] [place] [address], [place] [id number] Jul, [facility] [address] [id number] [address] [place] [address], [place] [id number] May, [facility] [address] [id number] [place] [id number] May, [facility] [address] [id number] [address] [place] [address], [place] [id number] May, [facility] [address] [id number] [address] [place] [id number] May, [facility] [address] [facility] [id number] [address] [place] [id number] May, [facility] [address] [facility] [id number] [address] [place] [id number] Apr, [facility] [place] [address] [id number] [place] [id number] Apr, [facility] [address] [facility] [id number] [address] [place] [id number] Apr, [facility] [address] [facility] [id number] [address] [place] [id number] Mar, [facility] [place] [address] [id number] [place] [id number] Mar, [facility] [address] [facility] [id number] [address] [place] [id number] Mar, [facility] [place] [address] [id number] [place] [id number] Feb, [facility] [address] [facility] [id number] [address] [place] [id number] Feb, [facility] [address] [facility] [id number] [address] [place] [id number] Feb, [facility] [place] [address] [id number] [place] [id number] Feb, [facility] [place] [address] [id number] [place] [id number] Feb, [facility] [place] [address] [id number] [place] [id number] Jan, [facility] [address] [id number] [address] [place] [address], [place] [id number] Jan, [facility] [place] [address] [id number] [place] [id number] Jan, [facility] [place] [address] [id number] [place] [id number] Jan, [facility] [place] [address] [id number] [place] [id number] Jan, [facility] [address] [facility] [id number] [address] [place] [address], [place] [id number] Jan, [facility] [address] [facility] [id number] [address] [place] [address], [place] [id number] Jan, [facility] [address] [facility] [id number] [address] [place] [address], [place] [id number] Aug, [facility] [place] [address] [id number] [place] [id number] Aug, [facility] [address] [facility] [id number] [address] [place] [address], [place] [id number] Jul, [facility] [address] [facility] [id number] [address] [place] [address], [place] [id number] Jul, [facility] [address] [facility] [id number] [address] [place] [address], [place] [id number] Jul, [facility] [place] [address] [id number] [place] [id number] Jul, [facility] [address] [facility] [id number] [address] [place] [address], [place] [id number] Jul, [facility] [place] [address] [id number] [place] [id number] Jul, [facility] [address] [facility] [id number] [address] [place] [address], [place] [id number] Jul, [facility] [place] [address] [id number] [place] [id number] Jul, [facility] [place] [address] [id number] [place] [id number] Jul, [facility] [place] [address] [id number] [place] [id number] Jul, [facility] [address] [facility] [id number] [address] [place] [address], [place] [id number] May, [facility] [address] [id number] [address] [place] [id number] May, [facility] [address] [id number] [address] [place] [id number] May, [facility] [address] [id number] [address] [place] [id number] Apr, [facility] [address] [id number] [address] [place] [id number] Jan, [facility] [address] [id number] [address] [place] [id number] Jan, [facility] [address] [id number] [address] [place] [id number] Dec, [facility] [address] [id number] [address] [place] [id number] Dec, [facility] [address] [id number] [address] [place] [id number] May, [facility] [address] [id number] [address] [place] [id number] Mar, [facility] [address] [id number] [address] [place] [id number] Mar, [facility] [address] [id number] [address] [place] [id number] Jan, IMMUNIZATIONS No Known Immunizations SOCIAL HISTORY [...]
--- OUTSIDE RECORDS SUMMARY | 2020-01-28 12:39 | XMS REPORT ---
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 Active 054316233 Problem History of venous thromboembolism V12.51 Active 204209466 Problem Cellulitis of unspecified part of limb L03.119 Active 214697044 Problem Gastroesophageal reflux disease without esophagitis K21.9 Active 275757893 Problem History of pulmonary embolism Z86.711 Active 072986656 Problem Pseudotumor cerebri G93.2 Active 45023421 Problem History of DVT (deep vein thrombosis) Z86.718 Active [id number] ALLERGIES No Information ENCOUNTERS Encounter Location Date Diagnosis [place] [id number] [facility] [id number] [address] [place] [address] Apr, long-term (current) use of 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 Z79.01 [facility] [address] [facility] [id number] [address] [place] [address] Apr, long-term 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.01 [facility] [address] [facility] [id number] [address] [place] [address] Apr, Cellulitis of unspecified pa rt of limb L03.119 ; Allergic contact dermatitis due to adhesives L23.1 and Chronic pain syndrome G89.4 [facility] [address] [facility] [id number] [address] [place] [address] Apr, [place] [address] [place] [id number] [address] [place] [address] Apr, 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.01 ; Cellulitis of unspecified part of limb L03.119 ; Chronic pain syndrome G89.4 and Anxiety F41.9 [facility] [address] [place] [id number] [address] [place] [address] 16 Apr, 2015 [facility] [address] [place] [id number] [place] [address] Apr, [place] [address] [place] [id number] [place] [address] Mar, [place] [address] [address] Mar, [place] [address] [address] Mar, Sore throat J02.9 ; Gastroes ophageal reflux disease without esophagitis K21.9 ; Pseudotumor cerebri G93.2 ; Chronic pain syndrome G89.4 ; Choriocarcinoma C58 ; History of pulmonary embolism Z86.711 ; History of DVT (deep vein thrombosis) Z86.718 ; Anxiety F41.9 and Tachycardia R00.0 [place] [address] [address] Feb, Anxiety 300.00 and Chronic p ain 338.29 [place] [address] [place] [id number] [address] [place] [address] Feb, [place] [address] [place] [id number] [address] [place] [address] Feb, [place] [address] [address] Jan, 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 accountant 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 therapy V58.61 and Dysuria 788.1 [place] [address] [place] [id number] [place] [address] Jan, Dysuria 788.1 [facility] [address] [place] [id number] [address] [place] [address] Jan, Anxiety 300.00 and Chronic p ain 338.29 [facility] [address] [place] [id number] [place] [address] Jan, [facility] [address] [address] Jan, [facility] [address] [address] Jan, [place] [address] [address] Dec, Weakness 780.79 [place] [address] [address] Dec, long-term 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 therapy V58.61 [place] [address] [address] Dec, Palpitations 785.1 ; Tremor 781.0 ; Weakness 780.79 ; long-term current use of anticoagulant therapy V58.61 and Yeast vaginitis 112.1 [place] [address] [place] [id number] [address] [place] [address] Dec, [place] [address] [address] Dec, Cervicalgia 723.1 ; Tachycar yoseph 785.0 ; Pseudotumor cerebri 348.2 and History of venous thromboembolism V12.51 [place] [address] [address] Nov, [place] [address] [address] Nov, [place] [address] [address] Nov, Tachycardia 785.0 ; Pseudotu mor cerebri 348.2 ; Anxiety 300.00 and History of venous thromboembolism V12.51 [facility] [address] [id number] [address] [place] [address] Nov, [facility] [address] [id number] [address] [place] [address] 18 Nov, 2014 [facility] [address] [id number] [address] [place] [address] Nov, [facility] [address] [id number] [address] [place] [address] Nov, [facility] [address] [facility] [id number] [address] [place] [address] Nov, [facility] [address] [facility] [id number] [address] [place] [address] Nov, [facility] [address] [facility] [id number] [address] [place] [address] Nov, [facility] [address] [facility] [id number] [address] [place] [address] October, [facility] [address] [facility] [id number] [address] [place] [address] October, [facility] [address] [place] [id number] [address] [place] [address] October, Pain in thoracic spine 724.1 and Tachycardia 785.0 [facility] [address] [id number] [address] [place] [address] October, [facility] [address] [id number] [address] [place] [address] October, [facility] [address] [facility] [id number] [address] [place] [address] 14 Sep, 2014 [facility] [address] [facility] [id number] [address] [place] [address] Sep, [facility] [address] [id number] [facility] [place] [address] Aug, [facility] [address] [id number] [address] [place] [address], [place] [address] Aug, [facility] [address] [id number] [address] [place] [address], [place] [address] Aug, [facility] [address] [id number] [address] [place] [address], [place] [address] Aug, [facility] [address] [id number] [address] [place] [address], [place] [address] Aug, [facility] [address] [id number] [address] [place] [address], [place] [address] Aug, [facility] [address] [id number] [address] [place] [address], [place] [address] Aug, [facility] [address] [id number] [address] [place] [address], [place] [address] Aug, [facility] [address] [id number] [address] [place] [address], [place] [address] Aug, [facility] [address] [id number] [address] [place] [address], [place] [address] Aug, [facility] [address] [id number] [address] [place] [address], [place] [address] Aug, [facility] [address] [id number] [address] [place] [address], [place] [address] Aug, 2014 [facility] [address] [id number] [address] [place] [address], [place] [address] Jul, [facility] [address] [id number] [address] [place] [address], [place] [address] Jul, [facility] [address] [id number] [address] [place] [address], [place] [address] Jul, [facility] [address] [id number] [address] [place] [address], [place] [address] Jul, [facility] [address] [id number] [address] [place] [address], [place] [address] 23 Jul, 2014 [facility] [address] [id number] [address] [place] [address], [place] [address] 23 Jul, 2014 [facility] [address] [id number] [address] [place] [address], [place] [address] 23 Jul, 2014 [facility] [address] [id number] [address] [place] [address], [place] [address] 23 Jul, 2014 [facility] [address] [id number] [address] [place] [address], [place] [address] 20 Jul, 2014 [facility] [address] [id number] [address] [place] [address], [place] [address] 20 Jul, 2014 [facility] [address] [id number] [address] [place] [address], [place] [address] 19 Jul, 2014 [facility] [address] [id number] [address] [place] [address], [place] [address] 19 Jul, 2014 [facility] [address] [id number] [address] [place] [address], [place] [address] 17 Jul, 2014 [facility] [address] [id number] [address] [place] [address], [place] [address] 17 Jul, 2014 [facility] [address] [id number] [address] [place] [address], [place] [address] 16 Jul, 2014 [facility] [address] [id number] [address] [place] [address], [place] [address] 16 Jul, 2014 [facility] [address] [id number] [address] [place] [address], [place] [address] 16 Jul, 2014 [facility] [address] [id number] [address] [place] [address] 16 Jul, 2014 [facility] [address] [id number] [address] [place] [address] 13 Jul, 2014 [facility] [address] [id number] [address] [place] [address], [place] [address] Jul, [facility] [address] [id number] [address] [place] [address], [place] [address] Jul, [facility] [address] [id number] [address] [place] [address], [place] [address] Jul, 2014 [facility] [address] [id number] [address] [place] [address], [place] [address] Jul, 2014 [facility] [address] [id number] [address] [place] [address], [place] [address] Jul, [facility] [address] [id number] [address] [place] [address], [place] [address] Jul, [facility] [address] [id number] [address] [place] [address], [place] [address] Jul, [facility] [address] [id number] [address] [place] [address], [place] [address] Jul, [facility] [address] [id number] [address] [place] [address], [place] [address] Jul, [facility] [address] [id number] [address] [place] [address], [place] [address] Jul, [facility] [address] [id number] [address] [place] [address], [place] [address] Jul, [facility] [address] [id number] [address] [place] [address], [place] [address] Jun, [facility] [address] [id number] [address] [place] [address], [place] [address] Jun, [facility] [address] [id number] [address] [place] [address], [place] [address] Jun, [facility] [address] [id number] [address] [place] [address], [place] [address] Jun, [facility] [address] [id number] [address] [place] [address], [place] [address] Jun, [facility] [address] [id number] [address] [place] [address], [place] [address] Jun, [facility] [address] [id number] [address] [place] [address], [place] [address] Jun, [facility] [address] [id number] [address] [place] [address], [place] [address] Jun, [facility] [address] [id number] [address] [place] [address], [place] [address] Jun, [facility] [address] [id number] [address] [place] [address], [place] [address] Jun, [facility] [address] [id number] [address] [place] [address], [place] [address] Jun, [facility] [address] [id number] [address] [place] [address], [place] [address] Jun, [facility] [address] [id number] [address] [place] [address], [place] [address] Jun, [facility] [address] [id number] [address] [place] [address], [place] [address] Jun, [facility] [address] [id number] [address] [place] [address], [place] [address] Jun, [facility] [address] [id number] [address] [place] [address], [place] [address] Jun, [facility] [address] [id number] [address] [place] [address], [place] [address] Jun, [facility] [address] [id number] [address] [place] [address], [place] [address] Jun, [facility] [address] [id number] [address] [place] [address], [place] [address] Jun, [facility] [address] [id number] [address] [place] [address], [place] [address] Jun, [facility] [address] [id number] [address] [place] [address], [place] [address] May, [facility] [address] [id number] [address] [place] [address], [place] [address] May, [facility] [address] [id number] [address] [place] [address], [place] [address] May, [facility] [address] [id number] [address] [place] [address], [place] [address] May, [facility] [address] [id number] [address] [place] [address], [place] [address] May, [facility] [address] [id number] [address] [place] [address], [place] [address] May, [facility] [address] [id number] [address] [place] [address], [place] [address] May, [facility] [address] [id number] [address] [place] [address], [place] [address] May, [facility] [address] [id number] [address] [place] [address], [place] [address] May, [facility] [address] [id number] [address] [place] [address], [place] [address] May, [facility] [address] [id number] [address] [place] [address], [place] [address] May, [facility] [address] [id number] [address] [place] [address], [place] [address] 18 May, 2014 [facility] [address] [id number] [address] [place] [address], [place] [address] 18 May, 2014 [facility] [address] [id number] [address] [place] [address], [place] [address] 17 May, 2014 [facility] [address] [id number] [address] [place] [address], [place] [address] 16 May, 2014 [facility] [address] [id number] [address] [place] [address], [place] [address] 16 May, 2014 [facility] [address] [id number] [address] [place] [address], [place] [address] 15 May, 2014 [facility] [address] [id number] [address] [place] [address], [place] [address] 15 May, 2014 [facility] [address] [id number] [address] [place] [address], [place] [address] May, [facility] [address] [id number] [address] [place] [address], [place] [address] May, [facility] [address] [id number] [address] [place] [address], [place] [address] May, [facility] [address] [id number] [address] [place] [address], [place] [address] May, [facility] [address] [id number] [address] [place] [address], [place] [address] May, [facility] [address] [id number] [address] [place] [address], [place] [address] May, [facility] [address] [id number] [address] [place] [address], [place] [address] May, [facility] [address] [id number] [address] [place] [address], [place] [address] May, [facility] [address] [id number] [address] [place] [address], [place] [address] May, [facility] [address] [id number] [address] [place] [address], [place] [address] May, [facility] [address] [id number] [address] [place] [address], [place] [address] May, [facility] [address] [id number] [address] [place] [address], [place] [address] May, [facility] [address] [id number] [address] [place] [address], [place] [address] May, [facility] [address] [id number] [address] [place] [address], [place] [address] May, [facility] [address] [id number] [address] [place] [address], [place] [address] May, [facility] [address] [id number] [address] [place] [address], [place] [address] May, [facility] [address] [id number] [address] [place] [address], [place] [address] Apr, [facility] [address] [id number] [address] [place] [address], [place] [address] Apr, [facility] [address] [id number] [address] [place] [address], [place] [address] Apr, [facility] [address] [id number] [address] [place] [address], [place] [address] Apr, [facility] [address] [id number] [address] [place] [address], [place] [address] Apr, [facility] [address] [id number] [address] [place] [address], [place] [address] Apr, [facility] [address] [id number] [address] [place] [address], [place] [address] Apr, [facility] [address] [id number] [address] [place] [address], [place] [address] Apr, [facility] [address] [id number] [address] [place] [address], [place] [address] Apr, [facility] [address] [id number] [address] [place] [address], [place] [address] Apr, [facility] [address] [id number] [address] [place] [address], [place] [address] Mar, [facility] [address] [id number] [address] [place] [address], [place] [address] Mar, [facility] [address] [id number] [address] [place] [address] [address] Mar, [facility] [address] [id number] [address] [place] [address], [place] [address] 31 Mar, 2013 [facility] [address] [id number] [address] [place] [address], [place] [address] Mar, [facility] [address] [id number] [address] [place] [address], [place] [address] 30 Mar, 2014 [facility] [address] [id number] [address] [place] [address], [place] [address] Mar, [facility] [address] [id number] [address] [place] [address], [place] [address] Mar, [facility] [address] [id number] [address] [place] [address], [place] [address] Mar, [facility] [address] [id number] [address] [place] [address], [place] [address] Mar, [facility] [address] [id number] [address] [place] [id number] Mar, [facility] [address] [id number] [address] [place] [address] Mar, [facility] [address] [id number] [address] [place] [id number] Mar, [facility] [address] [id number] [address] [place] [id number] Mar, 2013 [facility] [address] [id number] [address] [place] [address] Mar, 2013 [facility] [address] [id number] [address] [place] [id number] Mar, [facility] [address] [id number] [address] [place] [address] Mar, [facility] [address] [id number] [address] [place] [address] Mar, 2013 [facility] [address] [id number] [address] [place] [address], [place] [address] 02 Mar, 2013 [facility] [address] [id number] [address] [place] [address], [place] [address] 02 Mar, 2013 [facility] [address] [id number] [address] [place] [address], [place] [address] 05 Sep, 2013 [facility] [address] [id number] [address] [place] [address], [place] [address] 05 Sep, 2013 [facility] [address] [id number] [address] [place] [address], [place] [address] 04 Sep, 2013 [facility] [address] [id number] [address] [place] [address], [place] [address] 04 Sep, 2013 [facility] [address] [id number] [address] [place] [address], [place] [address] 03 Feb, 2013 [facility] [address] [id number] [address] [place] [address], [place] [address] 03 Feb, 2013 [facility] [address] [id number] [address] [place] [address], [place] [address] 02 Feb, 2013 [facility] [address] [id number] [address] [place] [address], [place] [address] Feb, 2013 [facility] [address] [id number] [address] [place] [address], [place] [address] 02 Feb, 2013 [facility] [address] [id number] [address] [place] [address], [place] [address] Feb, 2013 [facility] [address] [id number] [address] [place] [address], [place] [address] Jan, [facility] [address] [id number] [address] [place] [address], [place] [address] Jan, [facility] [address] [id number] [address] [place] [address], [place] [address] Jan, [facility] [address] [id number] [address] [place] [address], [place] [address] Jan, [facility] [address] [id number] [facility] [place] [address] Jan, [facility] [address] [id number] [address] [place] [address], [place] [address] Jan, [facility] [address] [id number] [address] [place] [address], [place] [address] Jan, [facility] [address] [id number] [address] [place] [address], [place] [address] Jan, [facility] [address] [id number] [address] [place] [address], [place] [address] Jan, [facility] [address] [id number] [address] [place] [address], [place] [address] Jan, [facility] [address] [id number] [address] [place] [address], [place] [address] Jan, [facility] [address] [id number] [address] [place] [address], [place] [address] Jan, [facility] [address] [id number] [address] [place] [address], [place] [address] Dec, [facility] [address] [id number] [address] [place] [address], [place] [address] Dec, [facility] [address] [id number] [address] [place] [address], [place] [address] Dec, [facility] [address] [id number] [address] [place] [address], [place] [address] Dec, [facility] [address] [id number] [address] [place] [address], [place] [address] Dec, [facility] [address] [id number] [address] [place] [address], [place] [address] Dec, [facility] [address] [id number] [address] [place] [address], [place] [address] Dec, [facility] [address] [id number] [address] [place] [address], [place] [address] Dec, [facility] [address] [id number] [facility] [place] [address] Dec, [facility] [address] [id number] [address] [place] [address], [place] [address] Dec, [facility] [address] [id number] [address] [place] [address], [place] [address] Dec, [facility] [address] [id number] [address] [place] [address], [place] [address] Dec, [facility] [address] [id number] [address] [place] [address], [place] [address] Nov, [facility] [address] [id number] [address] [place] [address], [place] [address] Nov, [facility] [address] [id number] [address] [place] [address], [place] [address] Nov, [facility] [address] [id number] [address] [place] [address], [place] [address] Nov, [facility] [address] [id number] [address] [place] [address], [place] [address] Nov, [facility] [address] [id number] [address] [place] [address], [place] [address] Nov, [facility] [address] [id number] [address] [place] [address], [place] [address] Nov, [facility] [address] [id number] [address] [place] [address], [place] [address] Nov, [facility] [address] [id number] [address] [place] [address], [place] [address] Nov, [facility] [address] [id number] [address] [place] [address], [place] [address] Nov, [facility] [address] [id number] [address] [place] [address], [place] [address] Nov, [facility] [address] [id number] [facility] [place] [address] Nov, [facility] [address] [id number] [address] [place] [address], [place] [address] Nov, [facility] [address] [id number] [address] [place] [address], [place] [address] Nov, [facility] [address] [id number] [address] [place] [address], [place] [address] October, [facility] [address] [id number] [address] [place] [address], [place] [address] October, [facility] [address] [id number] [address] [place] [address], [place] [address] October, [facility] [address] [id number] [address] [place] [address], [place] [address] October, [facility] [address] [id number] [address] [place] [address], [place] [address] October, [facility] [address] [id number] [address] [place] [address], [place] [address] October, [facility] [address] [id number] [address] [place] [address], [place] [address] October, [facility] [address] [id number] [address] [place] [address], [place] [address] October, [facility] [address] [id number] [address] [place] [address], [place] [address] October, [facility] [address] [id number] [address] [place] [address], [place] [address] October, [facility] [address] [id number] [address] [place] [address], [place] [address] October, [facility] [address] [id number] [address] [place] [address], [place] [address] October, [facility] [address] [id number] [address] [place] [address], [place] [address] Sep, [facility] [address] [id number] [facility] [place] [address] Sep, [facility] [address] [id number] [address] [place] [address], [place] [address] Sep, [facility] [address] [id number] [facility] [place] [address] Sep, [facility] [address] [id number] [address] [place] [address], [place] [address] Sep, [facility] [address] [id number] [address] [place] [address], [place] [address] Sep, [facility] [address] [id number] [address] [place] [address], [place] [address] Aug, [facility] [address] [id number] [address] [place] [address], [place] [address] Aug, [facility] [address] [id number] [address] [place] [address], [place] [address] Aug, [facility] [address] [id number] [address] [place] [address], [place] [address] Aug, [facility] [address] [id number] [address] [place] [address], [place] [address] Aug, [facility] [address] [id number] [address] [place] [address], [place] [address] Aug, [facility] [address] [id number] [address] [place] [address], [place] [address] Jul, [facility] [address] [id number] [address] [place] [address], [place] [address] Jul, [facility] [address] [id number] [address] [place] [address], [place] [address] Jul, [facility] [address] [id number] [address] [place] [address], [place] [address] Jul, [facility] [address] [id number] [address] [place] [address], [place] [address] 13 Jul, 2013 [facility] [address] [id number] [address] [place] [address], [place] [address] Jul, [facility] [address] [id number] [address] [place] [address], [place] [address] Jul, [facility] [address] [id number] [address] [place] [address], [place] [address] Jul, [facility] [address] [id number] [address] [place] [address], [place] [address] Jul, [facility] [address] [id number] [address] [place] [address], [place] [address] Jul, [facility] [address] [id number] [address] [place] [address], [place] [address] Jun, [facility] [address] [id number] [address] [place] [address], [place] [address] Jun, [facility] [address] [id number] [address] [place] [address], [place] [address] Jun, [facility] [address] [id number] [address] [place] [address], [place] [address] Jun, [facility] [address] [id number] [address] [place] [address], [place] [address] Jun, [facility] [address] [id number] [address] [place] [address], [place] [address] Jun, [facility] [address] [id number] [address] [place] [address], [place] [address] Jun, [facility] [address] [id number] [address] [place] [address], [place] [address] Jun, [facility] [address] [id number] [address] [place] [address], [place] [address] May, [facility] [address] [id number] [address] [place] [address], [place] [address] May, [facility] [address] [id number] [address] [place] [address], [place] [address] May, [facility] [address] [id number] [address] [place] [address], [place] [address] May, [facility] [address] [id number] [address] [place] [address], [place] [address] May, [facility] [address] [id number] [address] [place] [address], [place] [address] May, [facility] [address] [id number] [address] [place] [address], [place] [address] May, [facility] [address] [id number] [address] [place] [address], [place] [address] May, [facility] [address] [id number] [address] [place] [address], [place] [address] Apr, [facility] [address] [id number] [address] [place] [address] Apr, [facility] [address] [id number] [address] [place] [address], [place] [address] Apr, [facility] [address] [id number] [address] [place] [address] Apr, [facility] [address] [id number] [address] [place] [address] Apr, [facility] [address] [id number] [address] [place] [address] Apr, [facility] [address] [id number] [address] [place] [address], [place] [address] Mar, [facility] [address] [id number] [address] [place] [address] Mar, [facility] [address] [id number] [address] [place] [address], [place] [address] Mar, [facility] [address] [id number] [address] [place] [address], [place] [address] Mar, [facility] [address] [id number] [address] [place] [address], [place] [address] Mar, [facility] [address] [id number] [address] [place] [address], [place] [address] Mar, [facility] [address] [id number] [address] [place] [address], [place] [address] Mar, [facility] [address] [id number] [address] [place] [address], [place] [address] 30 Feb, 2012 [facility] [address] [id number] [address] [place] [address], [place] [address] 30 Feb, 2013 [facility] [address] [id number] [address] [place] [address], [place] [address] 27 Feb, 2013 [facility] [address] [id number] [address] [place] [address], [place] [address] Feb, 2012 [facility] [address] [id number] [address] [place] [address], [place] [address] Feb, [facility] [address] [id number] [address] [place] [address], [place] [address] Feb, [facility] [address] [id number] [address] [place] [address], [place] [address] Jan, [facility] [address] [id number] [address] [place] [address], [place] [address] Jan, [facility] [address] [id number] [address] [place] [address], [place] [address] Jan, [facility] [address] [id number] [address] [place] [address], [place] [address] Jan, [facility] [address] [id number] [address] [place] [address], [place] [address] Jan, [facility] [address] [id number] [address] [place] [address], [place] [address] Jan, [facility] [address] [id number] [address] [place] [address], [place] [address] Jan, [facility] [address] [id number] [address] [place] [address], [place] [address] Jan, [facility] [address] [id number] [address] [place] [address], [place] [address] Jan, [facility] [address] [id number] [address] [place] [address], [place] [address] Dec, [facility] [address] [id number] [address] [place] [address], [place] [address] Dec, [facility] [address] [id number] [address] [place] [address], [place] [address] Dec, [facility] [address] [id number] [address] [place] [address], [place] [address] Dec, [facility] [address] [id number] [address] [place] [address], [place] [address] Dec, [facility] [address] [id number] [address] [place] [address], [place] [address] Dec, [facility] [address] [id number] [address] [place] [address], [place] [address] Dec, [facility] [address] [id number] [address] [place] [address], [place] [address] Dec, [facility] [address] [id number] [address] [place] [address], [place] [address] Dec, [facility] [address] [id number] [address] [place] [address], [place] [address] Dec, [facility] [address] [id number] [address] [place] [address], [place] [address] Dec, [facility] [address] [id number] [address] [place] [address], [place] [address] Dec, [facility] [address] [id number] [address] [place] [address], [place] [address] Dec, [facility] [address] [id number] [address] [place] [address], [place] [address] Nov, [facility] [address] [id number] [address] [place] [address], [place] [address] Nov, [facility] [address] [id number] [address] [place] [address], [place] [address] Nov, [facility] [address] [id number] [address] [place] [address], [place] [address] Nov, [facility] [address] [id number] [address] [place] [address], [place] [address] October, [facility] [address] [id number] [address] [place] [address], [place] [address] October, [facility] [address] [id number] [address] [place] [address], [place] [address] October, [facility] [address] [id number] [address] [place] [address], [place] [address] October, [facility] [address] [id number] [address] [place] [address], [place] [address] October, [facility] [address] [id number] [address] [place] [address], [place] [address] October, [facility] [address] [id number] [address] [place] [address], [place] [address] Sep, [facility] [address] [id number] [address] [place] [address], [place] [address] Sep, [facility] [address] [id number] [address] [place] [address], [place] [address] Sep, [facility] [address] [id number] [address] [place] [address], [place] [address] Sep, [facility] [address] [id number] [address] [place] [address], [place] [address] Sep, [facility] [address] [id number] [facility] [place] [address] 16 Sep, 2012 [facility] [address] [id number] [address] [place] [address], [place] [address] 12 Sep, 2012 [facility] [address] [id number] [address] [place] [address], [place] [address] Sep, [facility] [address] [id number] [address] [place] [address], [place] [address] Sep, [facility] [address] [id number] [address] [place] [address], [place] [address] Sep, [facility] [address] [id number] [address] [place] [address], [place] [address] Sep, [facility] [address] [id number] [address] [place] [address], [place] [address] Aug, [facility] [address] [id number] [address] [place] [address], [place] [address] 25 Aug, 2012 [facility] [address] [id number] [address] [place] [address], [place] [address] 25 Aug, 2012 [facility] [address] [id number] [address] [place] [address], [place] [address] 21 Aug, 2012 [facility] [address] [id number] [address] [place] [address], [place] [address] 19 Aug, 2012 [facility] [address] [id number] [address] [place] [address], [place] [address] 18 Aug, 2012 [facility] [address] [id number] [address] [place] [address], [place] [address] 17 Aug, 2012 [facility] [address] [id number] [address] [place] [address], [place] [address] 15 Aug, 2012 [facility] [address] [id number] [address] [place] [address], [place] [address] 15 Aug, 2012 [facility] [address] [id number] [address] [place] [address], [place] [address] Aug, [facility] [address] [id number] [address] [place] [address], [place] [address] Aug, [facility] [address] [id number] [address] [place] [address], [place] [address] Aug, [facility] [address] [id number] [address] [place] [address], [place] [address] Jul, [facility] [address] [id number] [address] [place] [address], [place] [address] Jul, [facility] [address] [id number] [address] [place] [address], [place] [address] Jul, [facility] [address] [id number] [address] [place] [address], [place] [address] Jul, [facility] [address] [id number] [address] [place] [address], [place] [address] Jul, [facility] [address] [id number] [address] [place] [address], [place] [address] Jul, [facility] [address] [id number] [address] [place] [address], [place] [address] Jul, [facility] [address] [id number] [address] [place] [address], [place] [address] Jul, [facility] [address] [id number] [address] [place] [address], [place] [address] Jul, [facility] [address] [id number] [address] [place] [address], [place] [address] Jul, [facility] [address] [id number] [address] [place] [address], [place] [address] May, [facility] [id number] [id number] [place] [id number] May, [facility] [address] [id number] [address] [place] [address], [place] [address] May, [facility] [address] [id number] [address] [place] [id number] May, [facility] [address] [facility] [id number] [address] [place] [address] May, [facility] [address] [facility] [id number] [address] [place] [address] Apr, [facility] [place] [address] [id number] [place] [id number] Apr, [facility] [address] [facility] [id number] [address] [place] [address] Apr, [facility] [address] [facility] [id number] [address] [place] [phone] Mar, [facility] [place] [address] [id number] [place] [id number] Mar, [facility] [address] [facility] [id number] [address] [place] [address] Mar, [facility] [address] [id number] [place] [id number] Feb, [facility] [address] [facility] [id number] [address] [place] [address] Feb, [facility] [address] [facility] [id number] [address] [place] [phone] Feb, [facility] [place] [address] [id number] [place] [id number] Feb, [facility] [address] [id number] [place] [id number] Feb, [facility] [address] [id number] [place] [id number] Jan, [facility] [address] [id number] [address] [place] [address], [place] [address] Jan, [facility] [place] [address] [id number] [place] [id number] Jan, [facility] [address] [id number] [place] [id number] Jan, [facility] [place] [address] [id number] [place] [id number] Jan, [facility] [address] [facility] [id number] [address] [place] [address], [place] [address] Jan, [facility] [address] [facility] [id number] [address] [place] [address], [place] [address] Jan, [facility] [address] [facility] [id number] [address] [place] [address], [place] [address] Aug, [facility] [place] [address] [id number] [place] [id number] Aug, [facility] [address] [facility] [id number] [address] [place] [address], [place] [address] Jul, [facility] [address] [facility] [id number] [address] [place] [address], [place] [address] Jul, [facility] [address] [facility] [id number] [address] [place] [address], [place] [address] Jul, [facility] [address] [id number] [place] [id number] Jul, [facility] [address] [facility] [id number] [address] [place] [address], [place] [address] Jul, [facility] [place] [address] [id number] [place] [id number] Jul, [facility] [address] [facility] [id number] [address] [place] [address], [place] [address] Jul, [facility] [place] [address] [id number] [place] [id number] Jul, [facility] [place] [address] [id number] [place] [id number] Jul, [facility] [place] [address] [id number] [place] [id number] Jul, [facility] [address] [facility] [id number] [address] [place] [address], [place] [address] May, [facility] [address] [id number] [address] [place] [id number] May, [facility] [address] [id number] [address] [place] [id number] May, [facility] [address] [id number] [address] [place] [id number] Apr, [facility] [address] [id number] [address] [place] [id number] Jan, [facility] [address] [id number] [address] [place] [address] Jan, [facility] [address] [id number] [address] [place] [id number] Dec, [facility] [address] [id number] [address] [place] [id number] Dec, [facility] [address] [id number] [address] [place] [id number] May, [facility] [address] [id number] [address] [place] [id number] Mar, [facility] [address] [id number] [address] [place] [id number] Mar, [facility] [address] [id number] [address] [place] [id number] Jan, IMMUNIZATIONS No Known Immunizations SOCIAL HISTORY [...]
--- OUTSIDE RECORDS SUMMARY | 2020-01-28 12:40 | XMS REPORT ---
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 Z79.01 Active 627301994 Problem History of venous thromboembolism V12.51 Active 216170249 Problem Cellulitis of unspecified part of limb L03.119 Active 159660983 Problem Gastroesophageal reflux disease without esophagitis K21.9 Active 554975419 Problem History of pulmonary embolism Z86.711 Active 504493888 Problem Pseudotumor cerebri G93.2 Active 35867806 Problem History of DVT (deep vein thrombosis) Z86.718 Active 283397271 ALLERGIES No Information ENCOUNTERS Encounter Location Date Diagnosis [place] [id number] [facility] [id number] [address] [place] [address] Apr, prison (current) use of 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 Z79.01 [facility] [address] [facility] [id number] [address] [place] [address] Apr, prison 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.01 [facility] [address] [facility] [id number] [address] [place] [address] Apr, Cellulitis of unspecified pa rt of limb L03.119 ; Allergic contact dermatitis due to adhesives L23.1 and Chronic pain syndrome G89.4 [facility] [address] [facility] [id number] [address] [place] [address] Apr, [place] [address] [place] [id number] [address] [place] [address] Apr, intermission coordinator 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.01 ; Cellulitis of unspecified part of limb L03.119 ; Chronic pain syndrome G89.4 and Anxiety F41.9 [facility] [address] [place] [id number] [address] [place] [address] 16 Apr, 2015 [facility] [address] [place] [id number] [place] [address] Apr, [place] [address] [place] [id number] [place] [address] Mar, [place] [address] [address] Mar, [place] [address] [address] Mar, Sore throat J02.9 ; Gastroes ophageal reflux disease without esophagitis K21.9 ; Pseudotumor cerebri G93.2 ; Chronic pain syndrome G89.4 ; Choriocarcinoma C58 ; History of pulmonary embolism Z86.711 ; History of DVT (deep vein thrombosis) Z86.718 ; Anxiety F41.9 and Tachycardia R00.0 [place] [address] [address] Feb, Anxiety 300.00 and Chronic p ain 338.29 [place] [address] [place] [id number] [address] [place] [address] Feb, [place] [address] [place] [id number] [address] [place] [address] Feb, [place] [address] [address] Jan, intermission coordinator 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 therapy V58.61 and Dysuria 788.1 [place] [address] [place] [id number] [place] [address] Jan, Dysuria 788.1 [facility] [address] [place] [id number] [address] [place] [address] Jan, Anxiety 300.00 and Chronic p ain 338.29 [facility] [address] [place] [id number] [place] [address] Jan, [facility] [address] [address] Jan, [facility] [address] [address] Jan, [place] [address] [address] Dec, Weakness 780.79 [place] [address] [address] Dec, prison 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 therapy V58.61 [place] [address] [address] Dec, Palpitations 785.1 ; Tremor 781.0 ; Weakness 780.79 ; prison current use of anticoagulant therapy V58.61 and Yeast vaginitis 112.1 [place] [address] [place] [id number] [address] [place] [address] Dec, [place] [address] [address] Dec, Cervicalgia 723.1 ; Tachycar yoseph 785.0 ; Pseudotumor cerebri 348.2 and History of venous thromboembolism V12.51 [place] [address] [address] Nov, [place] [address] [address] Nov, [place] [address] [address] Nov, Tachycardia 785.0 ; Pseudotu mor cerebri 348.2 ; Anxiety 300.00 and History of venous thromboembolism V12.51 [facility] [address] [id number] [address] [place] [address] Nov, [facility] [address] [id number] [address] [place] [address] 18 Nov, 2014 [facility] [address] [id number] [address] [place] [address] Nov, [facility] [address] [id number] [address] [place] [address] Nov, [facility] [address] [facility] [id number] [address] [place] [address] Nov, [facility] [address] [facility] [id number] [address] [place] [address] Nov, [facility] [address] [facility] [id number] [address] [place] [address] Nov, [facility] [address] [facility] [id number] [address] [place] [address] October, [facility] [address] [facility] [id number] [address] [place] [address] October, [facility] [address] [place] [id number] [address] [place] [address] October, Pain in thoracic spine 724.1 and Tachycardia 785.0 [facility] [address] [id number] [address] [place] [address] October, [facility] [address] [id number] [address] [place] [address] October, [facility] [address] [facility] [id number] [address] [place] [address] 14 Sep, 2014 [facility] [address] [facility] [id number] [address] [place] [address] Sep, [facility] [address] [id number] [facility] [place] [address] Aug, [facility] [address] [id number] [address] [place] [address], [place] [address] Aug, [facility] [address] [id number] [address] [place] [address], [place] [address] Aug, [facility] [address] [id number] [address] [place] [address], [place] [address] Aug, [facility] [address] [id number] [address] [place] [address], [place] [address] Aug, [facility] [address] [id number] [address] [place] [address], [place] [address] Aug, [facility] [address] [id number] [address] [place] [address], [place] [address] Aug, [facility] [address] [id number] [address] [place] [address], [place] [address] Aug, [facility] [address] [id number] [address] [place] [address], [place] [address] Aug, [facility] [address] [id number] [address] [place] [address], [place] [address] Aug, [facility] [address] [id number] [address] [place] [address], [place] [address] Aug, [facility] [address] [id number] [address] [place] [address], [place] [address] Aug, 2014 [facility] [address] [id number] [address] [place] [address], [place] [address] Jul, [facility] [address] [id number] [address] [place] [address], [place] [address] Jul, [facility] [address] [id number] [address] [place] [address], [place] [address] Jul, [facility] [address] [id number] [address] [place] [address], [place] [address] Jul, [facility] [address] [id number] [address] [place] [address], [place] [address] 23 Jul, 2014 [facility] [address] [id number] [address] [place] [address], [place] [address] 23 Jul, 2014 [facility] [address] [id number] [address] [place] [address], [place] [address] 23 Jul, 2014 [facility] [address] [id number] [address] [place] [address], [place] [address] 23 Jul, 2014 [facility] [address] [id number] [address] [place] [address], [place] [address] 20 Jul, 2014 [facility] [address] [id number] [address] [place] [address], [place] [address] 20 Jul, 2014 [facility] [address] [id number] [address] [place] [address], [place] [address] 19 Jul, 2014 [facility] [address] [id number] [address] [place] [address], [place] [address] 19 Jul, 2014 [facility] [address] [id number] [address] [place] [address], [place] [address] 17 Jul, 2014 [facility] [address] [id number] [address] [place] [address], [place] [address] 17 Jul, 2014 [facility] [address] [id number] [address] [place] [address], [place] [address] 16 Jul, 2014 [facility] [address] [id number] [address] [place] [address], [place] [address] 16 Jul, 2014 [facility] [address] [id number] [address] [place] [address], [place] [address] 16 Jul, 2014 [facility] [address] [id number] [address] [place] [address] 16 Jul, 2014 [facility] [address] [id number] [address] [place] [address] 13 Jul, 2014 [facility] [address] [id number] [address] [place] [address], [place] [address] Jul, [facility] [address] [id number] [address] [place] [address], [place] [address] Jul, [facility] [address] [id number] [address] [place] [address], [place] [address] Jul, 2014 [facility] [address] [id number] [address] [place] [address], [place] [address] Jul, 2014 [facility] [address] [id number] [address] [place] [address], [place] [address] Jul, [facility] [address] [id number] [address] [place] [address], [place] [address] Jul, [facility] [address] [id number] [address] [place] [address], [place] [address] Jul, [facility] [address] [id number] [address] [place] [address], [place] [address] Jul, [facility] [address] [id number] [address] [place] [address], [place] [address] Jul, [facility] [address] [id number] [address] [place] [address], [place] [address] Jul, [facility] [address] [id number] [address] [place] [address], [place] [address] Jul, [facility] [address] [id number] [address] [place] [address], [place] [address] Jun, [facility] [address] [id number] [address] [place] [address], [place] [address] Jun, [facility] [address] [id number] [address] [place] [address], [place] [address] Jun, [facility] [address] [id number] [address] [place] [address], [place] [address] Jun, [facility] [address] [id number] [address] [place] [address], [place] [address] Jun, [facility] [address] [id number] [address] [place] [address], [place] [address] Jun, [facility] [address] [id number] [address] [place] [address], [place] [address] Jun, [facility] [address] [id number] [address] [place] [address], [place] [address] Jun, [facility] [address] [id number] [address] [place] [address], [place] [address] Jun, [facility] [address] [id number] [address] [place] [address], [place] [address] Jun, [facility] [address] [id number] [address] [place] [address], [place] [address] Jun, [facility] [address] [id number] [address] [place] [address], [place] [address] Jun, [facility] [address] [id number] [address] [place] [address], [place] [address] Jun, [facility] [address] [id number] [address] [place] [address], [place] [address] Jun, [facility] [address] [id number] [address] [place] [address], [place] [address] Jun, [facility] [address] [id number] [address] [place] [address], [place] [address] Jun, [facility] [address] [id number] [address] [place] [address], [place] [address] Jun, [facility] [address] [id number] [address] [place] [address], [place] [address] Jun, [facility] [address] [id number] [address] [place] [address], [place] [address] Jun, [facility] [address] [id number] [address] [place] [address], [place] [address] Jun, [facility] [address] [id number] [address] [place] [address], [place] [address] May, [facility] [address] [id number] [address] [place] [address], [place] [address] May, [facility] [address] [id number] [address] [place] [address], [place] [address] May, [facility] [address] [id number] [address] [place] [address], [place] [address] May, [facility] [address] [id number] [address] [place] [address], [place] [address] May, [facility] [address] [id number] [address] [place] [address], [place] [address] May, [facility] [address] [id number] [address] [place] [address], [place] [address] May, [facility] [address] [id number] [address] [place] [address], [place] [address] May, [facility] [address] [id number] [address] [place] [address], [place] [address] May, [facility] [address] [id number] [address] [place] [address], [place] [address] May, [facility] [address] [id number] [address] [place] [address], [place] [address] May, [facility] [address] [id number] [address] [place] [address], [place] [address] 18 May, 2014 [facility] [address] [id number] [address] [place] [address], [place] [address] 18 May, 2014 [facility] [address] [id number] [address] [place] [address], [place] [address] 17 May, 2014 [facility] [address] [id number] [address] [place] [address], [place] [address] 16 May, 2014 [facility] [address] [id number] [address] [place] [address], [place] [address] 16 May, 2014 [facility] [address] [id number] [address] [place] [address], [place] [address] 15 May, 2014 [facility] [address] [id number] [address] [place] [address], [place] [address] 15 May, 2014 [facility] [address] [id number] [address] [place] [address], [place] [address] May, [facility] [address] [id number] [address] [place] [address], [place] [address] May, [facility] [address] [id number] [address] [place] [address], [place] [address] May, [facility] [address] [id number] [address] [place] [address], [place] [address] May, [facility] [address] [id number] [address] [place] [address], [place] [address] May, [facility] [address] [id number] [address] [place] [address], [place] [address] May, [facility] [address] [id number] [address] [place] [address], [place] [address] May, [facility] [address] [id number] [address] [place] [address], [place] [address] May, [facility] [address] [id number] [address] [place] [address], [place] [address] May, [facility] [address] [id number] [address] [place] [address], [place] [address] May, [facility] [address] [id number] [address] [place] [address], [place] [address] May, [facility] [address] [id number] [address] [place] [address], [place] [address] May, [facility] [address] [id number] [address] [place] [address], [place] [address] May, [facility] [address] [id number] [address] [place] [address], [place] [address] May, [facility] [address] [id number] [address] [place] [address], [place] [address] May, [facility] [address] [id number] [address] [place] [address], [place] [address] May, [facility] [address] [id number] [address] [place] [address], [place] [address] Apr, [facility] [address] [id number] [address] [place] [address], [place] [address] Apr, [facility] [address] [id number] [address] [place] [address], [place] [address] Apr, [facility] [address] [id number] [address] [place] [address], [place] [address] Apr, [facility] [address] [id number] [address] [place] [address], [place] [address] Apr, [facility] [address] [id number] [address] [place] [address], [place] [address] Apr, [facility] [address] [id number] [address] [place] [address], [place] [address] Apr, [facility] [address] [id number] [address] [place] [address], [place] [address] Apr, [facility] [address] [id number] [address] [place] [address], [place] [address] Apr, [facility] [address] [id number] [address] [place] [address], [place] [address] Apr, [facility] [address] [id number] [address] [place] [address], [place] [address] Mar, [facility] [address] [id number] [address] [place] [address], [place] [address] Mar, [facility] [address] [id number] [address] [place] [address] [address] Mar, [facility] [address] [id number] [address] [place] [address], [place] [address] 31 Mar, 2013 [facility] [address] [id number] [address] [place] [address], [place] [address] Mar, [facility] [address] [id number] [address] [place] [address], [place] [address] 30 Mar, 2014 [facility] [address] [id number] [address] [place] [address], [place] [address] Mar, [facility] [address] [id number] [address] [place] [address], [place] [address] Mar, [facility] [address] [id number] [address] [place] [address], [place] [address] Mar, [facility] [address] [id number] [address] [place] [address], [place] [address] Mar, [facility] [address] [id number] [address] [place] [address] Mar, [facility] [address] [id number] [address] [place] [address] Mar, [facility] [address] [id number] [address] [place] [address] Mar, [facility] [address] [id number] [address] [place] [id number] Mar, 2013 [facility] [address] [id number] [address] [place] [id number] Mar, 2013 [facility] [address] [id number] [address] [place] [address] Mar, [facility] [address] [id number] [address] [place] [id number] Mar, [facility] [address] [id number] [address] [place] [address] Mar, 2013 [facility] [address] [id number] [address] [place] [address], [place] [address] 02 Mar, 2013 [facility] [address] [id number] [address] [place] [address], [place] [address] 02 Mar, 2013 [facility] [address] [id number] [address] [place] [address], [place] [address] 05 Sep, 2013 [facility] [address] [id number] [address] [place] [address], [place] [address] 05 Sep, 2013 [facility] [address] [id number] [address] [place] [address], [place] [address] 04 Sep, 2013 [facility] [address] [id number] [address] [place] [address], [place] [address] 04 Sep, 2013 [facility] [address] [id number] [address] [place] [address], [place] [address] 03 Feb, 2013 [facility] [address] [id number] [address] [place] [address], [place] [address] 03 Feb, 2013 [facility] [address] [id number] [address] [place] [address], [place] [address] 02 Feb, 2013 [facility] [address] [id number] [address] [place] [address], [place] [address] Feb, 2013 [facility] [address] [id number] [address] [place] [address], [place] [address] 02 Feb, 2013 [facility] [address] [id number] [address] [place] [address], [place] [address] Feb, 2013 [facility] [address] [id number] [address] [place] [address], [place] [address] Jan, [facility] [address] [id number] [address] [place] [address], [place] [address] Jan, [facility] [address] [id number] [address] [place] [address], [place] [address] Jan, [facility] [address] [id number] [address] [place] [address], [place] [address] Jan, [facility] [address] [id number] [facility] [place] [address] Jan, [facility] [address] [id number] [address] [place] [address], [place] [address] Jan, [facility] [address] [id number] [address] [place] [address], [place] [address] Jan, [facility] [address] [id number] [address] [place] [address], [place] [address] Jan, [facility] [address] [id number] [address] [place] [address], [place] [address] Jan, [facility] [address] [id number] [address] [place] [address], [place] [address] Jan, [facility] [address] [id number] [address] [place] [address], [place] [address] Jan, [facility] [address] [id number] [address] [place] [address], [place] [address] Jan, [facility] [address] [id number] [address] [place] [address], [place] [address] Dec, [facility] [address] [id number] [address] [place] [address], [place] [address] Dec, [facility] [address] [id number] [address] [place] [address], [place] [address] Dec, [facility] [address] [id number] [address] [place] [address], [place] [address] Dec, [facility] [address] [id number] [address] [place] [address], [place] [address] Dec, [facility] [address] [id number] [address] [place] [address], [place] [address] Dec, [facility] [address] [id number] [address] [place] [address], [place] [address] Dec, [facility] [address] [id number] [address] [place] [address], [place] [address] Dec, [facility] [address] [id number] [facility] [place] [address] Dec, [facility] [address] [id number] [address] [place] [address], [place] [address] Dec, [facility] [address] [id number] [address] [place] [address], [place] [address] Dec, [facility] [address] [id number] [address] [place] [address], [place] [address] Dec, [facility] [address] [id number] [address] [place] [address], [place] [address] Nov, [facility] [address] [id number] [address] [place] [address], [place] [address] Nov, [facility] [address] [id number] [address] [place] [address], [place] [address] Nov, [facility] [address] [id number] [address] [place] [address], [place] [address] Nov, [facility] [address] [id number] [address] [place] [address], [place] [address] Nov, [facility] [address] [id number] [address] [place] [address], [place] [address] Nov, [facility] [address] [id number] [address] [place] [address], [place] [address] Nov, [facility] [address] [id number] [address] [place] [address], [place] [address] Nov, [facility] [address] [id number] [address] [place] [address], [place] [address] Nov, [facility] [address] [id number] [address] [place] [address], [place] [address] Nov, [facility] [address] [id number] [address] [place] [address], [place] [address] Nov, [facility] [address] [id number] [facility] [place] [address] Nov, [facility] [address] [id number] [address] [place] [address], [place] [address] Nov, [facility] [address] [id number] [address] [place] [address], [place] [address] Nov, [facility] [address] [id number] [address] [place] [address], [place] [address] October, [facility] [address] [id number] [address] [place] [address], [place] [address] October, [facility] [address] [id number] [address] [place] [address], [place] [address] October, [facility] [address] [id number] [address] [place] [address], [place] [address] October, [facility] [address] [id number] [address] [place] [address], [place] [address] October, [facility] [address] [id number] [address] [place] [address], [place] [address] October, [facility] [address] [id number] [address] [place] [address], [place] [address] October, [facility] [address] [id number] [address] [place] [address], [place] [address] October, [facility] [address] [id number] [address] [place] [address], [place] [address] October, [facility] [address] [id number] [address] [place] [address], [place] [address] October, [facility] [address] [id number] [address] [place] [address], [place] [address] October, [facility] [address] [id number] [address] [place] [address], [place] [address] October, [facility] [address] [id number] [address] [place] [address], [place] [address] Sep, [facility] [address] [id number] [facility] [place] [address] Sep, [facility] [address] [id number] [address] [place] [address], [place] [address] Sep, [facility] [address] [id number] [facility] [place] [address] Sep, [facility] [address] [id number] [address] [place] [address], [place] [address] Sep, [facility] [address] [id number] [address] [place] [address], [place] [address] Sep, [facility] [address] [id number] [address] [place] [address], [place] [address] Aug, [facility] [address] [id number] [address] [place] [address], [place] [address] Aug, [facility] [address] [id number] [address] [place] [address], [place] [address] Aug, [facility] [address] [id number] [address] [place] [address], [place] [address] Aug, [facility] [address] [id number] [address] [place] [address], [place] [address] Aug, [facility] [address] [id number] [address] [place] [address], [place] [address] Aug, [facility] [address] [id number] [address] [place] [address], [place] [address] Jul, [facility] [address] [id number] [address] [place] [address], [place] [address] Jul, [facility] [address] [id number] [address] [place] [address], [place] [address] Jul, [facility] [address] [id number] [address] [place] [address], [place] [address] Jul, [facility] [address] [id number] [address] [place] [address], [place] [address] 13 Jul, 2013 [facility] [address] [id number] [address] [place] [address], [place] [address] Jul, [facility] [address] [id number] [address] [place] [address], [place] [address] Jul, [facility] [address] [id number] [address] [place] [address], [place] [address] Jul, [facility] [address] [id number] [address] [place] [address], [place] [address] Jul, [facility] [address] [id number] [address] [place] [address], [place] [address] Jul, [facility] [address] [id number] [address] [place] [address], [place] [address] Jun, [facility] [address] [id number] [address] [place] [address], [place] [address] Jun, [facility] [address] [id number] [address] [place] [address], [place] [address] Jun, [facility] [address] [id number] [address] [place] [address], [place] [address] Jun, [facility] [address] [id number] [address] [place] [address], [place] [address] Jun, [facility] [address] [id number] [address] [place] [address], [place] [address] Jun, [facility] [address] [id number] [address] [place] [address], [place] [address] Jun, [facility] [address] [id number] [address] [place] [address], [place] [address] Jun, [facility] [address] [id number] [address] [place] [address], [place] [address] May, [facility] [address] [id number] [address] [place] [address], [place] [address] May, [facility] [address] [id number] [address] [place] [address], [place] [address] May, [facility] [address] [id number] [address] [place] [address], [place] [address] May, [facility] [address] [id number] [address] [place] [address], [place] [address] May, [facility] [address] [id number] [address] [place] [address], [place] [address] May, [facility] [address] [id number] [address] [place] [address], [place] [address] May, [facility] [address] [id number] [address] [place] [address], [place] [address] May, [facility] [address] [id number] [address] [place] [address], [place] [address] Apr, [facility] [address] [id number] [address] [place] [address] Apr, [facility] [address] [id number] [address] [place] [address], [place] [address] Apr, [facility] [address] [id number] [address] [place] [address] Apr, [facility] [address] [id number] [address] [place] [address] Apr, [facility] [address] [id number] [address] [place] [address] Apr, [facility] [address] [id number] [address] [place] [address], [place] [address] Mar, [facility] [address] [id number] [address] [place] [address] Mar, [facility] [address] [id number] [address] [place] [address], [place] [address] Mar, [facility] [address] [id number] [address] [place] [address], [place] [address] Mar, [facility] [address] [id number] [address] [place] [address], [place] [address] Mar, [facility] [address] [id number] [address] [place] [address], [place] [address] Mar, [facility] [address] [id number] [address] [place] [address], [place] [address] Mar, [facility] [address] [id number] [address] [place] [address], [place] [address] 30 Feb, 2012 [facility] [address] [id number] [address] [place] [address], [place] [address] 30 Feb, 2013 [facility] [address] [id number] [address] [place] [address], [place] [address] 27 Feb, 2013 [facility] [address] [id number] [address] [place] [address], [place] [address] Feb, 2012 [facility] [address] [id number] [address] [place] [address], [place] [address] Feb, [facility] [address] [id number] [address] [place] [address], [place] [address] Feb, [facility] [address] [id number] [address] [place] [address], [place] [address] Jan, [facility] [address] [id number] [address] [place] [address], [place] [address] Jan, [facility] [address] [id number] [address] [place] [address], [place] [address] Jan, [facility] [address] [id number] [address] [place] [address], [place] [address] Jan, [facility] [address] [id number] [address] [place] [address], [place] [address] Jan, [facility] [address] [id number] [address] [place] [address], [place] [address] Jan, [facility] [address] [id number] [address] [place] [address], [place] [address] Jan, [facility] [address] [id number] [address] [place] [address], [place] [address] Jan, [facility] [address] [id number] [address] [place] [address], [place] [address] Jan, [facility] [address] [id number] [address] [place] [address], [place] [address] Dec, [facility] [address] [id number] [address] [place] [address], [place] [address] Dec, [facility] [address] [id number] [address] [place] [address], [place] [address] Dec, [facility] [address] [id number] [address] [place] [address], [place] [address] Dec, [facility] [address] [id number] [address] [place] [address], [place] [address] Dec, [facility] [address] [id number] [address] [place] [address], [place] [address] Dec, [facility] [address] [id number] [address] [place] [address], [place] [address] Dec, [facility] [address] [id number] [address] [place] [address], [place] [address] Dec, [facility] [address] [id number] [address] [place] [address], [place] [address] Dec, [facility] [address] [id number] [address] [place] [address], [place] [address] Dec, [facility] [address] [id number] [address] [place] [address], [place] [address] Dec, [facility] [address] [id number] [address] [place] [address], [place] [address] Dec, [facility] [address] [id number] [address] [place] [address], [place] [address] Dec, [facility] [address] [id number] [address] [place] [address], [place] [address] Nov, [facility] [address] [id number] [address] [place] [address], [place] [address] Nov, [facility] [address] [id number] [address] [place] [address], [place] [address] Nov, [facility] [address] [id number] [address] [place] [address], [place] [address] Nov, [facility] [address] [id number] [address] [place] [address], [place] [address] October, [facility] [address] [id number] [address] [place] [address], [place] [address] October, [facility] [address] [id number] [address] [place] [address], [place] [address] October, [facility] [address] [id number] [address] [place] [address], [place] [address] October, [facility] [address] [id number] [address] [place] [address], [place] [address] October, [facility] [address] [id number] [address] [place] [address], [place] [address] October, [facility] [address] [id number] [address] [place] [address], [place] [address] Sep, [facility] [address] [id number] [address] [place] [address], [place] [address] Sep, [facility] [address] [id number] [address] [place] [address], [place] [address] Sep, [facility] [address] [id number] [address] [place] [address], [place] [address] Sep, [facility] [address] [id number] [address] [place] [address], [place] [address] Sep, [facility] [address] [id number] [facility] [place] [address] 16 Sep, 2012 [facility] [address] [id number] [address] [place] [address], [place] [address] 12 Sep, 2012 [facility] [address] [id number] [address] [place] [address], [place] [address] Sep, [facility] [address] [id number] [address] [place] [address], [place] [address] Sep, [facility] [address] [id number] [address] [place] [address], [place] [address] Sep, [facility] [address] [id number] [address] [place] [address], [place] [address] Sep, [facility] [address] [id number] [address] [place] [address], [place] [address] Aug, [facility] [address] [id number] [address] [place] [address], [place] [address] 25 Aug, 2012 [facility] [address] [id number] [address] [place] [address], [place] [address] 25 Aug, 2012 [facility] [address] [id number] [address] [place] [address], [place] [address] 21 Aug, 2012 [facility] [address] [id number] [address] [place] [address], [place] [address] 19 Aug, 2012 [facility] [address] [id number] [address] [place] [address], [place] [address] 18 Aug, 2012 [facility] [address] [id number] [address] [place] [address], [place] [address] 17 Aug, 2012 [facility] [address] [id number] [address] [place] [address], [place] [address] 15 Aug, 2012 [facility] [address] [id number] [address] [place] [address], [place] [address] 15 Aug, 2012 [facility] [address] [id number] [address] [place] [address], [place] [address] Aug, [facility] [address] [id number] [address] [place] [address], [place] [address] Aug, [facility] [address] [id number] [address] [place] [address], [place] [address] Aug, [facility] [address] [id number] [address] [place] [address], [place] [address] Jul, [facility] [address] [id number] [address] [place] [address], [place] [address] Jul, [facility] [address] [id number] [address] [place] [address], [place] [address] Jul, [facility] [address] [id number] [address] [place] [address], [place] [address] Jul, [facility] [address] [id number] [address] [place] [address], [place] [address] Jul, [facility] [address] [id number] [address] [place] [address], [place] [address] Jul, [facility] [address] [id number] [address] [place] [address], [place] [address] Jul, [facility] [address] [id number] [address] [place] [address], [place] [address] Jul, [facility] [address] [id number] [address] [place] [address], [place] [address] Jul, [facility] [address] [id number] [address] [place] [address], [place] [address] Jul, [facility] [address] [id number] [address] [place] [address], [place] [address] May, [facility] [address] [id number] [place] [id number] May, [facility] [address] [id number] [address] [place] [address], [place] [address] May, [facility] [address] [id number] [address] [place] [phone] May, [facility] [address] [facility] [id number] [address] [place] [phone] May, [facility] [address] [facility] [id number] [address] [place] [phone] Apr, [facility] [address] [id number] [place] [id number] Apr, [facility] [address] [facility] [id number] [address] [place] [phone] Apr, [facility] [address] [facility] [id number] [address] [place] [phone] Mar, [facility] [address] [id number] [place] [id number] Mar, [facility] [address] [facility] [id number] [address] [place] [phone] Mar, [facility] [address] [id number] [place] [id number] Feb, [facility] [address] [facility] [id number] [address] [place] [phone] Feb, [facility] [address] [facility] [id number] [address] [place] [phone] Feb, [facility] [place] [address] [id number] [place] [id number] Feb, [facility] [address] [id number] [place] [id number] Feb, [facility] [address] [id number] [place] [id number] Jan, [facility] [address] [id number] [address] [place] [address], [place] [address] Jan, [facility] [address] [id number] [place] [id number] Jan, [facility] [address] [id number] [place] [id number] Jan, [facility] [address] [id number] [place] [id number] Jan, [facility] [address] [facility] [id number] [address] [place] [address], [place] [address] Jan, [facility] [address] [facility] [id number] [address] [place] [address], [place] [address] Jan, [facility] [address] [facility] [id number] [address] [place] [address], [place] [address] Aug, [facility] [place] [address] [id number] [place] [id number] Aug, [facility] [address] [facility] [id number] [address] [place] [address], [place] [address] Jul, [facility] [address] [facility] [id number] [address] [place] [address], [place] [address] Jul, [facility] [address] [facility] [id number] [address] [place] [address], [place] [address] Jul, [facility] [address] [id number] [place] [id number] Jul, [facility] [address] [facility] [id number] [address] [place] [address], [place] [address] Jul, [facility] [address] [id number] [place] [id number] Jul, [facility] [address] [facility] [id number] [address] [place] [address], [place] [address] Jul, [facility] [address] [id number] [place] [id number] Jul, [facility] [address] [id number] [place] [id number] Jul, [facility] [address] [id number] [place] [id number] Jul, [facility] [address] [facility] [id number] [address] [place] [address], [place] [address] May, [facility] [address] [id number] [address] [place] [id number] May, [facility] [address] [id number] [address] [place] [phone] May, [facility] [address] [id number] [address] [place] [phone] Apr, [facility] [address] [id number] [address] [place] [id number] Jan, [facility] [address] [id number] [address] [place] [id number] Jan, [facility] [address] [id number] [address] [place] [id number] Dec, [facility] [address] [id number] [address] [place] [id number] Dec, [facility] [address] [id number] [address] [place] [phone] May, [facility] [address] [id number] [address] [place] [id number] Mar, [facility] [address] [id number] [address] [place] [id number] Mar, [facility] [address] [id number] [address] [place] [id number] Jan, IMMUNIZATIONS No Known Immunizations SOCIAL HISTORY [...]
--- OUTSIDE RECORDS SUMMARY | 2020-01-28 12:40 | XMS REPORT ---
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 [id number] [address] [place] [id number] Apr, care home (current) use of 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 Z79.01 [facility] [address] [facility] [id number] [address] [place] [id number] Apr, care home 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.01 [facility] [address] [facility] [id number] [address] [place] [address] Apr, Cellulitis of unspecified pa rt of limb L03.119 ; Allergic contact dermatitis due to adhesives L23.1 and Chronic pain syndrome G89.4 [facility] [address] 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.01 ; Cellulitis of unspecified part of limb L03.119 ; Chronic pain syndrome G89.4 and Anxiety F41.9 [facility] [address] [place] [id number] [address] [place] [address] 16 Apr, 2015 [facility] [address] [place] [id number] [place] [phone] Apr, [place] [address] [place] [id number] [place] [phone] Mar, [place] [address] [address] Mar, [place] [address] [address] Mar, Sore throat J02.9 ; Gastroes ophageal reflux disease without esophagitis K21.9 ; Pseudotumor cerebri G93.2 ; Chronic pain syndrome G89.4 ; Choriocarcinoma C58 ; History of pulmonary embolism Z86.711 ; History of DVT (deep vein thrombosis) Z86.718 ; Anxiety F41.9 and Tachycardia R00.0 [place] [address] [address] Feb, Anxiety 300.00 and Chronic p ain 338.29 [place] [address] [place] [id number] [address] [place] [address] Feb, [place] [address] [place] [id number] [address] [place] [phone] Feb, [place] [address] [address] Jan, 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 therapy V58.61 and Dysuria 788.1 [place] [address] [place] [id number] [place] [phone] Jan, Dysuria 788.1 [facility] [address] [place] [id number] [address] [place] [address] Jan, Anxiety 300.00 and Chronic p ain 338.29 [facility] [address] [place] [id number] [place] [phone] Jan, [facility] [address] [address] Jan, [facility] [address] [address] Jan, [place] [address] [address] Dec, Weakness 780.79 [place] [address] [address] Dec, care home 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 therapy V58.61 [place] [address] [address] Dec, Palpitations 785.1 ; Tremor 781.0 ; Weakness 780.79 ; care home current use of anticoagulant therapy V58.61 and Yeast vaginitis 112.1 [place] [address] [place] [id number] [address] [place] [address] Dec, [place] [address] [address] Dec, Cervicalgia 723.1 ; Tachycar yoseph 785.0 ; Pseudotumor cerebri 348.2 and History of venous thromboembolism V12.51 [place] [address] [address] Nov, [place] [address] [address] Nov, [place] [address] [address] Nov, Tachycardia 785.0 ; Pseudotu mor cerebri 348.2 ; Anxiety 300.00 and History of venous thromboembolism V12.51 [facility] [address] [id number] [address] [place] [address] Nov, [facility] [address] [id number] [address] [place] [address] 18 Nov, 2014 [facility] [address] [id number] [address] [place] [address] Nov, [facility] [address] [id number] [address] [place] [address] Nov, [facility] [address] [facility] [id number] [address] [place] [phone] Nov, [facility] [address] [facility] [id number] [address] [place] [address] Nov, [facility] [address] [facility] [id number] [address] [place] [address] Nov, [facility] [address] [facility] [id number] [address] [place] [address] October, [facility] [address] [facility] [id number] [address] [place] [address] October, [facility] [address] [place] [id number] [address] [place] [address] October, Pain in thoracic spine 724.1 and Tachycardia 785.0 [facility] [address] [id number] [address] [place] [address] October, [facility] [address] [id number] [address] [place] [phone] October, [facility] [address] [facility] [id number] [address] [place] [phone] 14 Sep, 2014 [facility] [address] [facility] [id number] [address] [place] [phone] Sep, [facility] [address] [id number] [facility] [place] [address] Aug, [facility] [address] [id number] [address] [place] [address], [place] [address] Aug, [facility] [address] [id number] [address] [place] [address], [place] [address] Aug, [facility] [address] [id number] [address] [place] [address], [place] [address] Aug, [facility] [address] [id number] [address] [place] [address], [place] [address] Aug, [facility] [address] [id number] [address] [place] [address], [place] [address] Aug, [facility] [address] [id number] [address] [place] [address], [place] [address] Aug, [facility] [address] [id number] [address] [place] [address], [place] [address] Aug, [facility] [address] [id number] [address] [place] [address], [place] [address] Aug, [facility] [address] [id number] [address] [place] [address], [place] [address] Aug, [facility] [address] [id number] [address] [place] [address], [place] [address] Aug, [facility] [address] [id number] [address] [place] [address], [place] [address] Aug, 2014 [facility] [address] [id number] [address] [place] [address], [place] [address] Jul, [facility] [address] [id number] [address] [place] [address], [place] [address] Jul, [facility] [address] [id number] [address] [place] [address], [place] [address] Jul, [facility] [address] [id number] [address] [place] [address], [place] [address] Jul, [facility] [address] [id number] [address] [place] [address], [place] [address] 23 Jul, 2014 [facility] [address] [id number] [address] [place] [address], [place] [address] 23 Jul, 2014 [facility] [address] [id number] [address] [place] [address], [place] [address] 23 Jul, 2014 [facility] [address] [id number] [address] [place] [address], [place] [address] 23 Jul, 2014 [facility] [address] [id number] [address] [place] [address], [place] [address] 20 Jul, 2014 [facility] [address] [id number] [address] [place] [address], [place] [address] 20 Jul, 2014 [facility] [address] [id number] [address] [place] [address], [place] [address] 19 Jul, 2014 [facility] [address] [id number] [address] [place] [address], [place] [address] 19 Jul, 2014 [facility] [address] [id number] [address] [place] [address], [place] [address] 17 Jul, 2014 [facility] [address] [id number] [address] [place] [address], [place] [address] 17 Jul, 2014 [facility] [address] [id number] [address] [place] [address], [place] [address] 16 Jul, 2014 [facility] [address] [id number] [address] [place] [address], [place] [address] 16 Jul, 2014 [facility] [address] [id number] [address] [place] [address], [place] [address] 16 Jul, 2014 [facility] [address] [id number] [address] [place] [address] 16 Jul, 2014 [facility] [address] [id number] [address] [place] [address] 13 Jul, 2014 [facility] [address] [id number] [address] [place] [address], [place] [address] Jul, [facility] [address] [id number] [address] [place] [address], [place] [address] Jul, [facility] [address] [id number] [address] [place] [address], [place] [address] Jul, 2014 [facility] [address] [id number] [address] [place] [address], [place] [address] Jul, 2014 [facility] [address] [id number] [address] [place] [address], [place] [address] Jul, [facility] [address] [id number] [address] [place] [address], [place] [address] Jul, [facility] [address] [id number] [address] [place] [address], [place] [address] Jul, [facility] [address] [id number] [address] [place] [address], [place] [address] Jul, [facility] [address] [id number] [address] [place] [address], [place] [address] Jul, [facility] [address] [id number] [address] [place] [address], [place] [address] Jul, [facility] [address] [id number] [address] [place] [address], [place] [address] Jul, [facility] [address] [id number] [address] [place] [address], [place] [address] Jun, [facility] [address] [id number] [address] [place] [address], [place] [address] Jun, [facility] [address] [id number] [address] [place] [address], [place] [address] Jun, [facility] [address] [id number] [address] [place] [address], [place] [address] Jun, [facility] [address] [id number] [address] [place] [address], [place] [address] Jun, [facility] [address] [id number] [address] [place] [address], [place] [address] Jun, [facility] [address] [id number] [address] [place] [address], [place] [address] Jun, [facility] [address] [id number] [address] [place] [address], [place] [address] Jun, [facility] [address] [id number] [address] [place] [address], [place] [address] Jun, [facility] [address] [id number] [address] [place] [address], [place] [address] Jun, [facility] [address] [id number] [address] [place] [address], [place] [address] Jun, [facility] [address] [id number] [address] [place] [address], [place] [address] Jun, [facility] [address] [id number] [address] [place] [address], [place] [address] Jun, [facility] [address] [id number] [address] [place] [address], [place] [address] Jun, [facility] [address] [id number] [address] [place] [address], [place] [address] Jun, [facility] [address] [id number] [address] [place] [address], [place] [address] Jun, [facility] [address] [id number] [address] [place] [address], [place] [address] Jun, [facility] [address] [id number] [address] [place] [address], [place] [address] Jun, [facility] [address] [id number] [address] [place] [address], [place] [address] Jun, [facility] [address] [id number] [address] [place] [address], [place] [address] Jun, [facility] [address] [id number] [address] [place] [address], [place] [address] May, [facility] [address] [id number] [address] [place] [address], [place] [address] May, [facility] [address] [id number] [address] [place] [address], [place] [address] May, [facility] [address] [id number] [address] [place] [address], [place] [address] May, [facility] [address] [id number] [address] [place] [address], [place] [address] May, [facility] [address] [id number] [address] [place] [address], [place] [address] May, [facility] [address] [id number] [address] [place] [address], [place] [address] May, [facility] [address] [id number] [address] [place] [address], [place] [address] May, [facility] [address] [id number] [address] [place] [address], [place] [address] May, [facility] [address] [id number] [address] [place] [address], [place] [address] May, [facility] [address] [id number] [address] [place] [address], [place] [address] May, [facility] [address] [id number] [address] [place] [address], [place] [address] 18 May, 2014 [facility] [address] [id number] [address] [place] [address], [place] [address] 18 May, 2014 [facility] [address] [id number] [address] [place] [address], [place] [address] 17 May, 2014 [facility] [address] [id number] [address] [place] [address], [place] [address] 16 May, 2014 [facility] [address] [id number] [address] [place] [address], [place] [address] 16 May, 2014 [facility] [address] [id number] [address] [place] [address], [place] [address] 15 May, 2014 [facility] [address] [id number] [address] [place] [address], [place] [address] 15 May, 2014 [facility] [address] [id number] [address] [place] [address], [place] [address] May, [facility] [address] [id number] [address] [place] [address], [place] [address] May, [facility] [address] [id number] [address] [place] [address], [place] [address] May, [facility] [address] [id number] [address] [place] [address], [place] [address] May, [facility] [address] [id number] [address] [place] [address], [place] [address] May, [facility] [address] [id number] [address] [place] [address], [place] [address] May, [facility] [address] [id number] [address] [place] [address], [place] [address] May, [facility] [address] [id number] [address] [place] [address], [place] [address] May, [facility] [address] [id number] [address] [place] [address], [place] [address] May, [facility] [address] [id number] [address] [place] [address], [place] [address] May, [facility] [address] [id number] [address] [place] [address], [place] [address] May, [facility] [address] [id number] [address] [place] [address], [place] [address] May, [facility] [address] [id number] [address] [place] [address], [place] [address] May, [facility] [address] [id number] [address] [place] [address], [place] [address] May, [facility] [address] [id number] [address] [place] [address], [place] [address] May, [facility] [address] [id number] [address] [place] [address], [place] [address] May, [facility] [address] [id number] [address] [place] [address], [place] [address] Apr, [facility] [address] [id number] [address] [place] [address], [place] [address] Apr, [facility] [address] [id number] [address] [place] [address], [place] [address] Apr, [facility] [address] [id number] [address] [place] [address], [place] [address] Apr, [facility] [address] [id number] [address] [place] [address], [place] [address] Apr, [facility] [address] [id number] [address] [place] [address], [place] [address] Apr, [facility] [address] [id number] [address] [place] [address], [place] [address] Apr, [facility] [address] [id number] [address] [place] [address], [place] [address] Apr, [facility] [address] [id number] [address] [place] [address], [place] [address] Apr, [facility] [address] [id number] [address] [place] [address], [place] [address] Apr, [facility] [address] [id number] [address] [place] [address], [place] [address] Mar, [facility] [address] [id number] [address] [place] [address], [place] [address] Mar, [facility] [address] [id number] [address] [place] [address] [address] Mar, [facility] [address] [id number] [address] [place] [address], [place] [address] 31 Mar, 2013 [facility] [address] [id number] [address] [place] [address], [place] [address] Mar, [facility] [address] [id number] [address] [place] [address], [place] [address] 30 Mar, 2014 [facility] [address] [id number] [address] [place] [address], [place] [address] Mar, [facility] [address] [id number] [address] [place] [address], [place] [address] Mar, [facility] [address] [id number] [address] [place] [address], [place] [address] Mar, [facility] [address] [id number] [address] [place] [address], [place] [address] Mar, [facility] [address] [id number] [address] [place] [address] Mar, [facility] [address] [id number] [address] [place] [address] Mar, [facility] [address] [id number] [address] [place] [id number] Mar, [facility] [address] [id number] [address] [place] [address] Mar, 2013 [facility] [address] [id number] [address] [place] [id number] Mar, 2013 [facility] [address] [id number] [address] [place] [address] Mar, [facility] [address] [id number] [address] [place] [address] Mar, [facility] [address] [id number] [address] [place] [id number] Mar, 2013 [facility] [address] [id number] [address] [place] [address], [place] [address] 02 Mar, 2013 [facility] [address] [id number] [address] [place] [address], [place] [address] 02 Mar, 2013 [facility] [address] [id number] [address] [place] [address], [place] [address] 05 Sep, 2013 [facility] [address] [id number] [address] [place] [address], [place] [address] 05 Sep, 2013 [facility] [address] [id number] [address] [place] [address], [place] [address] 04 Sep, 2013 [facility] [address] [id number] [address] [place] [address], [place] [address] 04 Sep, 2013 [facility] [address] [id number] [address] [place] [address], [place] [address] 03 Feb, 2013 [facility] [address] [id number] [address] [place] [address], [place] [address] 03 Feb, 2013 [facility] [address] [id number] [address] [place] [address], [place] [address] 02 Feb, 2013 [facility] [address] [id number] [address] [place] [address], [place] [address] Feb, 2013 [facility] [address] [id number] [address] [place] [address], [place] [address] 02 Feb, 2013 [facility] [address] [id number] [address] [place] [address], [place] [address] Feb, 2013 [facility] [address] [id number] [address] [place] [address], [place] [address] Jan, [facility] [address] [id number] [address] [place] [address], [place] [address] Jan, [facility] [address] [id number] [address] [place] [address], [place] [address] Jan, [facility] [address] [id number] [address] [place] [address], [place] [address] Jan, [facility] [address] [id number] [facility] [place] [address] Jan, [facility] [address] [id number] [address] [place] [address], [place] [address] Jan, [facility] [address] [id number] [address] [place] [address], [place] [address] Jan, [facility] [address] [id number] [address] [place] [address], [place] [address] Jan, [facility] [address] [id number] [address] [place] [address], [place] [address] Jan, [facility] [address] [id number] [address] [place] [address], [place] [address] Jan, [facility] [address] [id number] [address] [place] [address], [place] [address] Jan, [facility] [address] [id number] [address] [place] [address], [place] [address] Jan, [facility] [address] [id number] [address] [place] [address], [place] [address] Dec, [facility] [address] [id number] [address] [place] [address], [place] [address] Dec, [facility] [address] [id number] [address] [place] [address], [place] [address] Dec, [facility] [address] [id number] [address] [place] [address], [place] [address] Dec, [facility] [address] [id number] [address] [place] [address], [place] [address] Dec, [facility] [address] [id number] [address] [place] [address], [place] [address] Dec, [facility] [address] [id number] [address] [place] [address], [place] [address] Dec, [facility] [address] [id number] [address] [place] [address], [place] [address] Dec, [facility] [address] [id number] [facility] [place] [address] Dec, [facility] [address] [id number] [address] [place] [address], [place] [address] Dec, [facility] [address] [id number] [address] [place] [address], [place] [address] Dec, [facility] [address] [id number] [address] [place] [address], [place] [address] Dec, [facility] [address] [id number] [address] [place] [address], [place] [address] Nov, [facility] [address] [id number] [address] [place] [address], [place] [address] Nov, [facility] [address] [id number] [address] [place] [address], [place] [address] Nov, [facility] [address] [id number] [address] [place] [address], [place] [address] Nov, [facility] [address] [id number] [address] [place] [address], [place] [address] Nov, [facility] [address] [id number] [address] [place] [address], [place] [address] Nov, [facility] [address] [id number] [address] [place] [address], [place] [address] Nov, [facility] [address] [id number] [address] [place] [address], [place] [address] Nov, [facility] [address] [id number] [address] [place] [address], [place] [address] Nov, [facility] [address] [id number] [address] [place] [address], [place] [address] Nov, [facility] [address] [id number] [address] [place] [address], [place] [address] Nov, [facility] [address] [id number] [facility] [place] [address] Nov, [facility] [address] [id number] [address] [place] [address], [place] [address] Nov, [facility] [address] [id number] [address] [place] [address], [place] [address] Nov, [facility] [address] [id number] [address] [place] [address], [place] [address] October, [facility] [address] [id number] [address] [place] [address], [place] [address] October, [facility] [address] [id number] [address] [place] [address], [place] [address] October, [facility] [address] [id number] [address] [place] [address], [place] [address] October, [facility] [address] [id number] [address] [place] [address], [place] [address] October, [facility] [address] [id number] [address] [place] [address], [place] [address] October, [facility] [address] [id number] [address] [place] [address], [place] [address] October, [facility] [address] [id number] [address] [place] [address], [place] [address] October, [facility] [address] [id number] [address] [place] [address], [place] [address] October, [facility] [address] [id number] [address] [place] [address], [place] [address] October, [facility] [address] [id number] [address] [place] [address], [place] [address] October, [facility] [address] [id number] [address] [place] [address], [place] [address] October, [facility] [address] [id number] [address] [place] [address], [place] [address] Sep, [facility] [address] [id number] [facility] [place] [address] Sep, [facility] [address] [id number] [address] [place] [address], [place] [address] Sep, [facility] [address] [id number] [facility] [place] [address] Sep, [facility] [address] [id number] [address] [place] [address], [place] [address] Sep, [facility] [address] [id number] [address] [place] [address], [place] [address] Sep, [facility] [address] [id number] [address] [place] [address], [place] [address] Aug, [facility] [address] [id number] [address] [place] [address], [place] [address] Aug, [facility] [address] [id number] [address] [place] [address], [place] [address] Aug, [facility] [address] [id number] [address] [place] [address], [place] [address] Aug, [facility] [address] [id number] [address] [place] [address], [place] [address] Aug, [facility] [address] [id number] [address] [place] [address], [place] [address] Aug, [facility] [address] [id number] [address] [place] [address], [place] [address] Jul, [facility] [address] [id number] [address] [place] [address], [place] [address] Jul, [facility] [address] [id number] [address] [place] [address], [place] [address] Jul, [facility] [address] [id number] [address] [place] [address], [place] [address] Jul, [facility] [address] [id number] [address] [place] [address], [place] [address] 13 Jul, 2013 [facility] [address] [id number] [address] [place] [address], [place] [address] Jul, [facility] [address] [id number] [address] [place] [address], [place] [address] Jul, [facility] [address] [id number] [address] [place] [address], [place] [address] Jul, [facility] [address] [id number] [address] [place] [address], [place] [address] Jul, [facility] [address] [id number] [address] [place] [address], [place] [address] Jul, [facility] [address] [id number] [address] [place] [address], [place] [address] Jun, [facility] [address] [id number] [address] [place] [address], [place] [address] Jun, [facility] [address] [id number] [address] [place] [address], [place] [address] Jun, [facility] [address] [id number] [address] [place] [address], [place] [address] Jun, [facility] [address] [id number] [address] [place] [address], [place] [address] Jun, [facility] [address] [id number] [address] [place] [address], [place] [address] Jun, [facility] [address] [id number] [address] [place] [address], [place] [address] Jun, [facility] [address] [id number] [address] [place] [address], [place] [address] Jun, [facility] [address] [id number] [address] [place] [address], [place] [address] May, [facility] [address] [id number] [address] [place] [address], [place] [address] May, [facility] [address] [id number] [address] [place] [address], [place] [address] May, [facility] [address] [id number] [address] [place] [address], [place] [address] May, [facility] [address] [id number] [address] [place] [address], [place] [address] May, [facility] [address] [id number] [address] [place] [address], [place] [address] May, [facility] [address] [id number] [address] [place] [address], [place] [address] May, [facility] [address] [id number] [address] [place] [address], [place] [address] May, [facility] [address] [id number] [address] [place] [address], [place] [address] Apr, [facility] [address] [id number] [address] [place] [address] Apr, [facility] [address] [id number] [address] [place] [address], [place] [address] Apr, [facility] [address] [id number] [address] [place] [address] Apr, [facility] [address] [id number] [address] [place] [address] Apr, [facility] [address] [id number] [address] [place] [address] Apr, [facility] [address] [id number] [address] [place] [address], [place] [address] Mar, [facility] [address] [id number] [address] [place] [address] Mar, [facility] [address] [id number] [address] [place] [address], [place] [address] Mar, [facility] [address] [id number] [address] [place] [address], [place] [address] Mar, [facility] [address] [id number] [address] [place] [address], [place] [address] Mar, [facility] [address] [id number] [address] [place] [address], [place] [address] Mar, [facility] [address] [id number] [address] [place] [address], [place] [address] Mar, [facility] [address] [id number] [address] [place] [address], [place] [address] 30 Feb, 2012 [facility] [address] [id number] [address] [place] [address], [place] [address] 30 Feb, 2013 [facility] [address] [id number] [address] [place] [address], [place] [address] 27 Feb, 2013 [facility] [address] [id number] [address] [place] [address], [place] [address] Feb, 2012 [facility] [address] [id number] [address] [place] [address], [place] [address] Feb, [facility] [address] [id number] [address] [place] [address], [place] [address] Feb, [facility] [address] [id number] [address] [place] [address], [place] [address] Jan, [facility] [address] [id number] [address] [place] [address], [place] [address] Jan, [facility] [address] [id number] [address] [place] [address], [place] [address] Jan, [facility] [address] [id number] [address] [place] [address], [place] [address] Jan, [facility] [address] [id number] [address] [place] [address], [place] [address] Jan, [facility] [address] [id number] [address] [place] [address], [place] [address] Jan, [facility] [address] [id number] [address] [place] [address], [place] [address] Jan, [facility] [address] [id number] [address] [place] [address], [place] [address] Jan, [facility] [address] [id number] [address] [place] [address], [place] [address] Jan, [facility] [address] [id number] [address] [place] [address], [place] [address] Dec, [facility] [address] [id number] [address] [place] [address], [place] [address] Dec, [facility] [address] [id number] [address] [place] [address], [place] [address] Dec, [facility] [address] [id number] [address] [place] [address], [place] [address] Dec, [facility] [address] [id number] [address] [place] [address], [place] [address] Dec, [facility] [address] [id number] [address] [place] [address], [place] [address] Dec, [facility] [address] [id number] [address] [place] [address], [place] [address] Dec, [facility] [address] [id number] [address] [place] [address], [place] [address] Dec, [facility] [address] [id number] [address] [place] [address], [place] [address] Dec, [facility] [address] [id number] [address] [place] [address], [place] [address] Dec, [facility] [address] [id number] [address] [place] [address], [place] [address] Dec, [facility] [address] [id number] [address] [place] [address], [place] [address] Dec, [facility] [address] [id number] [address] [place] [address], [place] [address] Dec, [facility] [address] [id number] [address] [place] [address], [place] [address] Nov, [facility] [address] [id number] [address] [place] [address], [place] [address] Nov, [facility] [address] [id number] [address] [place] [address], [place] [address] Nov, [facility] [address] [id number] [address] [place] [address], [place] [address] Nov, [facility] [address] [id number] [address] [place] [address], [place] [address] October, [facility] [address] [id number] [address] [place] [address], [place] [address] October, [facility] [address] [id number] [address] [place] [address], [place] [address] October, [facility] [address] [id number] [address] [place] [address], [place] [address] October, [facility] [address] [id number] [address] [place] [address], [place] [address] October, [facility] [address] [id number] [address] [place] [address], [place] [address] October, [facility] [address] [id number] [address] [place] [address], [place] [address] Sep, [facility] [address] [id number] [address] [place] [address], [place] [address] Sep, [facility] [address] [id number] [address] [place] [address], [place] [address] Sep, [facility] [address] [id number] [address] [place] [address], [place] [address] Sep, [facility] [address] [id number] [address] [place] [address], [place] [address] Sep, [facility] [address] [id number] [facility] [place] [address] 16 Sep, 2012 [facility] [address] [id number] [address] [place] [address], [place] [address] 12 Sep, 2012 [facility] [address] [id number] [address] [place] [address], [place] [address] Sep, [facility] [address] [id number] [address] [place] [address], [place] [address] Sep, [facility] [address] [id number] [address] [place] [address], [place] [address] Sep, [facility] [address] [id number] [address] [place] [address], [place] [address] Sep, [facility] [address] [id number] [address] [place] [address], [place] [address] Aug, [facility] [address] [id number] [address] [place] [address], [place] [address] 25 Aug, 2012 [facility] [address] [id number] [address] [place] [address], [place] [address] 25 Aug, 2012 [facility] [address] [id number] [address] [place] [address], [place] [address] 21 Aug, 2012 [facility] [address] [id number] [address] [place] [address], [place] [address] 19 Aug, 2012 [facility] [address] [id number] [address] [place] [address], [place] [address] 18 Aug, 2012 [facility] [address] [id number] [address] [place] [address], [place] [address] 17 Aug, 2012 [facility] [address] [id number] [address] [place] [address], [place] [address] 15 Aug, 2012 [facility] [address] [id number] [address] [place] [address], [place] [id number] 15 Aug, 2012 [facility] [address] [id number] [address] [place] [address], [place] [address] Aug, [facility] [address] [id number] [address] [place] [address], [place] [address] Aug, [facility] [address] [id number] [address] [place] [address], [place] [address] Aug, [facility] [address] [id number] [address] [place] [address], [place] [address] Jul, [facility] [address] [id number] [address] [place] [address], [place] [address] Jul, [facility] [address] [id number] [address] [place] [address], [place] [address] Jul, [facility] [address] [id number] [address] [place] [address], [place] [address] Jul, [facility] [address] [id number] [address] [place] [address], [place] [address] Jul, [facility] [address] [id number] [address] [place] [address], [place] [address] Jul, [facility] [address] [id number] [address] [place] [address], [place] [address] Jul, [facility] [address] [id number] [address] [place] [address], [place] [address] Jul, [facility] [address] [id number] [address] [place] [address], [place] [address] Jul, [facility] [address] [id number] [address] [place] [address], [place] [address] Jul, [facility] [address] [id number] [address] [place] [address], [place] [address] May, [facility] [address] [id number] [place] [id number] May, [facility] [address] [id number] [address] [place] [address], [place] [address] May, [facility] [address] [id number] [address] [place] [id number] May, [facility] [address] [facility] [id number] [address] [place] [address] May, [facility] [address] [facility] [id number] [address] [place] [address] Apr, [facility] [place] [address] [id number] [place] [id number] Apr, [facility] [address] [facility] [id number] [address] [place] [id number] Apr, [facility] [address] [facility] [id number] [address] [place] [id number] Mar, [facility] [place] [address] [id number] [place] [id number] Mar, [facility] [address] [facility] [id number] [address] [place] [id number] Mar, [facility] [address] [id number] [place] [id number] Feb, [facility] [address] [facility] [id number] [address] [place] [id number] Feb, [facility] [address] [facility] [id number] [address] [place] [id number] Feb, [facility] [place] [address] [id number] [place] [id number] Feb, [facility] [place] [address] [id number] [place] [id number] Feb, [facility] [address] [id number] [place] [id number] Jan, [facility] [address] [id number] [address] [place] [address], [place] [address] Jan, [facility] [place] [address] [id number] [place] [id number] Jan, [facility] [address] [id number] [place] [id number] Jan, [facility] [place] [address] [id number] [place] [id number] Jan, [facility] [address] [facility] [id number] [address] [place] [address], [place] [address] Jan, [facility] [address] [facility] [id number] [address] [place] [address], [place] [address] Jan, [facility] [address] [facility] [id number] [address] [place] [address], [place] [address] Aug, [facility] [place] [address] [id number] [place] [id number] Aug, [facility] [address] [facility] [id number] [address] [place] [address], [place] [address] Jul, [facility] [address] [facility] [id number] [address] [place] [address], [place] [address] Jul, [facility] [address] [facility] [id number] [address] [place] [address], [place] [address] Jul, [facility] [place] [address] [id number] [place] [id number] Jul, [facility] [address] [facility] [id number] [address] [place] [address], [place] [address] Jul, [facility] [place] [address] [id number] [place] [id number] Jul, [facility] [address] [facility] [id number] [address] [place] [address], [place] [address] Jul, [facility] [place] [address] [id number] [place] [id number] Jul, [facility] [place] [address] [id number] [place] [id number] Jul, [facility] [place] [address] [id number] [place] [id number] Jul, [facility] [address] [facility] [id number] [address] [place] [address], [place] [address] May, [facility] [address] [id number] [address] [place] [id number] May, [facility] [address] [id number] [address] [place] [id number] May, [facility] [address] [id number] [address] [place] [id number] Apr, [facility] [address] [id number] [address] [place] [id number] Jan, [facility] [address] [id number] [address] [place] [id number] Jan, [facility] [address] [id number] [address] [place] [id number] Dec, [facility] [address] [address] [id number] [address] [place] [phone] Dec, [facility] [address] [id number] [address] [place] [phone] May, [facility] [address] [id number] [address] [place] [id number] Mar, [facility] [address] [id number] [address] [place] [phone] Mar, [facility] [address] [id number] [address] [place] [phone] Jan, IMMUNIZATIONS No Known Immunizations SOCIAL HISTORY [...]
--- OUTSIDE RECORDS SUMMARY | 2020-01-28 12:40 | XMS REPORT ---
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 Active 304437364 Problem History of venous thromboembolism V12.51 Active 833368222 Problem Cellulitis of unspecified part of limb L03.119 Active 372293456 Problem Gastroesophageal reflux disease without esophagitis K21.9 Active 118126312 Problem History of pulmonary embolism Z86.711 Active 155684362 Problem Pseudotumor cerebri G93.2 Active 64483206 Problem History of DVT (deep vein thrombosis) Z86.718 Active 751294799 ALLERGIES No Information ENCOUNTERS Encounter Location Date Diagnosis [place] [id number] [facility] [id number] [address] [place] [address] Apr, half-way (current) use of 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 Z79.01 [facility] [address] [facility] [id number] [address] [place] [address] Apr, half-way 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.01 [facility] [address] [facility] [id number] [address] [place] [address] Apr, Cellulitis of unspecified pa rt of limb L03.119 ; Allergic contact dermatitis due to adhesives L23.1 and Chronic pain syndrome G89.4 [facility] [address] [facility] [id number] [address] [place] [address] Apr, [place] [address] [place] [id number] [address] [place] [address] Apr, terminal supervisor 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.01 ; Cellulitis of unspecified part of limb L03.119 ; Chronic pain syndrome G89.4 and Anxiety F41.9 [facility] [address] [place] [id number] [address] [place] [address] 16 Apr, 2015 [facility] [address] [place] [id number] [place] [address] Apr, [place] [address] [place] [id number] [place] [address] Mar, [place] [address] [address] Mar, [place] [address] [address] Mar, Sore throat J02.9 ; Gastroes ophageal reflux disease without esophagitis K21.9 ; Pseudotumor cerebri G93.2 ; Chronic pain syndrome G89.4 ; Choriocarcinoma C58 ; History of pulmonary embolism Z86.711 ; History of DVT (deep vein thrombosis) Z86.718 ; Anxiety F41.9 and Tachycardia R00.0 [place] [address] [address] Feb, Anxiety 300.00 and Chronic p ain 338.29 [place] [address] [place] [id number] [address] [place] [address] Feb, [place] [address] [place] [id number] [address] [place] [address] Feb, [place] [address] [address] Jan, terminal supervisor 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 therapy V58.61 and Dysuria 788.1 [place] [address] [place] [id number] [place] [address] Jan, Dysuria 788.1 [facility] [address] [place] [id number] [address] [place] [address] Jan, Anxiety 300.00 and Chronic p ain 338.29 [facility] [address] [place] [id number] [place] [address] Jan, [facility] [address] [address] Jan, [facility] [address] [address] Jan, [place] [address] [address] Dec, Weakness 780.79 [place] [address] [address] Dec, half-way 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 therapy V58.61 [place] [address] [address] Dec, Palpitations 785.1 ; Tremor 781.0 ; Weakness 780.79 ; half-way current use of anticoagulant therapy V58.61 and Yeast vaginitis 112.1 [place] [address] [place] [id number] [address] [place] [address] Dec, [place] [address] [address] Dec, Cervicalgia 723.1 ; Tachycar yoseph 785.0 ; Pseudotumor cerebri 348.2 and History of venous thromboembolism V12.51 [place] [address] [address] Nov, [place] [address] [address] Nov, [place] [address] [address] Nov, Tachycardia 785.0 ; Pseudotu mor cerebri 348.2 ; Anxiety 300.00 and History of venous thromboembolism V12.51 [facility] [address] [id number] [address] [place] [address] Nov, [facility] [address] [id number] [address] [place] [address] 18 Nov, 2014 [facility] [address] [id number] [address] [place] [phone] Nov, [facility] [address] [id number] [address] [place] [address] Nov, [facility] [address] [facility] [id number] [address] [place] [address] Nov, [facility] [address] [facility] [id number] [address] [place] [address] Nov, [facility] [address] [facility] [id number] [address] [place] [address] Nov, [facility] [address] [facility] [id number] [address] [place] [address] October, [facility] [address] [facility] [id number] [address] [place] [address] October, [facility] [address] [place] [id number] [address] [place] [address] October, Pain in thoracic spine 724.1 and Tachycardia 785.0 [facility] [address] [id number] [address] [place] [address] October, [facility] [address] [id number] [address] [place] [address] October, [facility] [address] [facility] [id number] [address] [place] [address] 14 Sep, 2014 [facility] [address] [facility] [id number] [address] [place] [address] Sep, [facility] [address] [id number] [facility] [place] [address] Aug, [facility] [address] [id number] [address] [place] [address], [place] [address] Aug, [facility] [address] [id number] [address] [place] [address], [place] [address] Aug, [facility] [address] [id number] [address] [place] [address], [place] [address] Aug, [facility] [address] [id number] [address] [place] [address], [place] [address] Aug, [facility] [address] [id number] [address] [place] [address], [place] [address] Aug, [facility] [address] [id number] [address] [place] [address], [place] [address] Aug, [facility] [address] [id number] [address] [place] [address], [place] [address] Aug, [facility] [address] [id number] [address] [place] [address], [place] [address] Aug, [facility] [address] [id number] [address] [place] [address], [place] [address] Aug, [facility] [address] [id number] [address] [place] [address], [place] [address] Aug, [facility] [address] [id number] [address] [place] [address], [place] [address] Aug, 2014 [facility] [address] [id number] [address] [place] [address], [place] [address] Jul, [facility] [address] [id number] [address] [place] [address], [place] [address] Jul, [facility] [address] [id number] [address] [place] [address], [place] [address] Jul, [facility] [address] [id number] [address] [place] [address], [place] [address] Jul, [facility] [address] [id number] [address] [place] [address], [place] [id number] 23 Jul, 2014 [facility] [address] [id number] [address] [place] [address], [place] [address] 23 Jul, 2014 [facility] [address] [id number] [address] [place] [address], [place] [id number] 23 Jul, 2014 [facility] [address] [id number] [address] [place] [address], [place] [id number] 23 Jul, 2014 [facility] [address] [id number] [address] [place] [address], [place] [id number] 20 Jul, 2014 [facility] [address] [id number] [address] [place] [address], [place] [id number] 20 Jul, 2014 [facility] [address] [id number] [address] [place] [address], [place] [id number] 19 Jul, 2014 [facility] [address] [id number] [address] [place] [address], [place] [id number] 19 Jul, 2014 [facility] [address] [id number] [address] [place] [address], [place] [id number] 17 Jul, 2014 [facility] [address] [id number] [address] [place] [address], [place] [id number] 17 Jul, 2014 [facility] [address] [id number] [address] [place] [address], [place] [id number] 16 Jul, 2014 [facility] [address] [id number] [address] [place] [address], [place] [id number] 16 Jul, 2014 [facility] [address] [id number] [address] [place] [address], [place] [address] 16 Jul, 2014 [facility] [address] [id number] [address] [place] [id number] 16 Jul, 2014 [facility] [address] [id number] [address] [place] [address] 13 Jul, 2014 [facility] [address] [id number] [address] [place] [address], [place] [address] Jul, [facility] [address] [id number] [address] [place] [address], [place] [address] Jul, [facility] [address] [id number] [address] [place] [address], [place] [address] Jul, 2014 [facility] [address] [id number] [address] [place] [address], [place] [address] Jul, 2014 [facility] [address] [id number] [address] [place] [address], [place] [address] Jul, [facility] [address] [id number] [address] [place] [address], [place] [address] Jul, [facility] [address] [id number] [address] [place] [address], [place] [address] Jul, [facility] [address] [id number] [address] [place] [address], [place] [address] Jul, [facility] [address] [id number] [address] [place] [address], [place] [id number] Jul, [facility] [address] [id number] [address] [place] [address], [place] [address] Jul, [facility] [address] [id number] [address] [place] [address], [place] [address] Jul, [facility] [address] [id number] [address] [place] [address], [place] [address] Jun, [facility] [address] [id number] [address] [place] [address], [place] [address] Jun, [facility] [address] [id number] [address] [place] [address], [place] [address] Jun, [facility] [address] [id number] [address] [place] [address], [place] [address] Jun, [facility] [address] [id number] [address] [place] [address], [place] [address] Jun, [facility] [address] [id number] [address] [place] [address], [place] [id number] Jun, [facility] [address] [id number] [address] [place] [address], [place] [address] Jun, [facility] [address] [id number] [address] [place] [address], [place] [address] Jun, [facility] [address] [id number] [address] [place] [address], [place] [address] Jun, [facility] [address] [id number] [address] [place] [address], [place] [address] Jun, [facility] [address] [id number] [address] [place] [address], [place] [address] Jun, [facility] [address] [id number] [address] [place] [address], [place] [address] Jun, [facility] [address] [id number] [address] [place] [address], [place] [address] Jun, [facility] [address] [id number] [address] [place] [address], [place] [address] Jun, [facility] [address] [id number] [address] [place] [address], [place] [address] Jun, [facility] [address] [id number] [address] [place] [address], [place] [address] Jun, [facility] [address] [id number] [address] [place] [address], [place] [address] Jun, [facility] [address] [id number] [address] [place] [address], [place] [address] Jun, [facility] [address] [id number] [address] [place] [address], [place] [address] Jun, [facility] [address] [id number] [address] [place] [address], [place] [address] Jun, [facility] [address] [id number] [address] [place] [address], [place] [address] May, [facility] [address] [id number] [address] [place] [address], [place] [address] May, [facility] [address] [id number] [address] [place] [address], [place] [address] May, [facility] [address] [id number] [address] [place] [address], [place] [address] May, [facility] [address] [id number] [address] [place] [address], [place] [address] May, [facility] [address] [id number] [address] [place] [address], [place] [address] May, [facility] [address] [id number] [address] [place] [address], [place] [address] May, [facility] [address] [id number] [address] [place] [address], [place] [address] May, [facility] [address] [id number] [address] [place] [address], [place] [address] May, [facility] [address] [id number] [address] [place] [address], [place] [address] May, [facility] [address] [id number] [address] [place] [address], [place] [address] May, [facility] [address] [id number] [address] [place] [address], [place] [address] 18 May, 2014 [facility] [address] [id number] [address] [place] [address], [place] [address] 18 May, 2014 [facility] [address] [id number] [address] [place] [address], [place] [address] 17 May, 2014 [facility] [address] [id number] [address] [place] [address], [place] [address] 16 May, 2014 [facility] [address] [id number] [address] [place] [address], [place] [address] 16 May, 2014 [facility] [address] [id number] [address] [place] [address], [place] [address] 15 May, 2014 [facility] [address] [id number] [address] [place] [address], [place] [address] 15 May, 2014 [facility] [address] [id number] [address] [place] [address], [place] [address] May, [facility] [address] [id number] [address] [place] [address], [place] [address] May, [facility] [address] [id number] [address] [place] [address], [place] [address] May, [facility] [address] [id number] [address] [place] [address], [place] [address] May, [facility] [address] [id number] [address] [place] [address], [place] [address] May, [facility] [address] [id number] [address] [place] [address], [place] [address] May, [facility] [address] [id number] [address] [place] [address], [place] [address] May, [facility] [address] [id number] [address] [place] [address], [place] [address] May, [facility] [address] [id number] [address] [place] [address], [place] [address] May, [facility] [address] [id number] [address] [place] [address], [place] [address] May, [facility] [address] [id number] [address] [place] [address], [place] [address] May, [facility] [address] [id number] [address] [place] [address], [place] [address] May, [facility] [address] [id number] [address] [place] [address], [place] [address] May, [facility] [address] [id number] [address] [place] [address], [place] [address] May, [facility] [address] [id number] [address] [place] [address], [place] [address] May, [facility] [address] [id number] [address] [place] [address], [place] [address] May, [facility] [address] [id number] [address] [place] [address], [place] [address] Apr, [facility] [address] [id number] [address] [place] [address], [place] [address] Apr, [facility] [address] [id number] [address] [place] [address], [place] [address] Apr, [facility] [address] [id number] [address] [place] [address], [place] [address] Apr, [facility] [address] [id number] [address] [place] [address], [place] [address] Apr, [facility] [address] [id number] [address] [place] [address], [place] [address] Apr, [facility] [address] [id number] [address] [place] [address], [place] [address] Apr, [facility] [address] [id number] [address] [place] [address], [place] [address] Apr, [facility] [address] [id number] [address] [place] [address], [place] [address] Apr, [facility] [address] [id number] [address] [place] [address], [place] [address] Apr, [facility] [address] [id number] [address] [place] [address], [place] [address] Mar, [facility] [address] [id number] [address] [place] [address], [place] [address] Mar, [facility] [address] [id number] [address] [place] [address] [address] Mar, [facility] [address] [id number] [address] [place] [address], [place] [address] 31 Mar, 2013 [facility] [address] [id number] [address] [place] [address], [place] [address] Mar, [facility] [address] [id number] [address] [place] [address], [place] [address] 30 Mar, 2014 [facility] [address] [id number] [address] [place] [address], [place] [address] Mar, [facility] [address] [id number] [address] [place] [address], [place] [id number] Mar, [facility] [address] [id number] [address] [place] [address], [place] [id number] Mar, [facility] [address] [id number] [address] [place] [address], [place] [id number] Mar, [facility] [address] [id number] [address] [place] [id number] Mar, [facility] [address] [id number] [address] [place] [id number] Mar, [facility] [address] [id number] [address] [place] [id number] Mar, [facility] [address] [id number] [address] [place] [id number] Mar, 2013 [facility] [address] [id number] [address] [place] [id number] Mar, 2013 [facility] [address] [id number] [address] [place] [id number] Mar, [facility] [address] [id number] [address] [place] [id number] Mar, [facility] [address] [id number] [address] [place] [id number] Mar, 2013 [facility] [address] [id number] [address] [place] [address], [place] [id number] 02 Mar, 2013 [facility] [address] [id number] [address] [place] [address], [place] [id number] 02 Mar, 2013 [facility] [address] [id number] [address] [place] [address], [place] [id number] 05 Sep, 2013 [facility] [address] [id number] [address] [place] [address], [place] [id number] 05 Sep, 2013 [facility] [address] [id number] [address] [place] [address], [place] [id number] 04 Sep, 2013 [facility] [address] [id number] [address] [place] [address], [place] [id number] 04 Sep, 2013 [facility] [address] [id number] [address] [place] [address], [place] [id number] 03 Feb, 2013 [facility] [address] [id number] [address] [place] [address], [place] [id number] 03 Feb, 2013 [facility] [address] [id number] [address] [place] [address], [place] [id number] 02 Feb, 2013 [facility] [address] [id number] [address] [place] [address], [place] [id number] Feb, 2013 [facility] [address] [id number] [address] [place] [address], [place] [id number] 02 Feb, 2013 [facility] [address] [id number] [address] [place] [address], [place] [id number] Feb, 2013 [facility] [address] [id number] [address] [place] [address], [place] [id number] Jan, [facility] [address] [id number] [address] [place] [address], [place] [id number] Jan, [facility] [address] [id number] [address] [place] [address], [place] [id number] Jan, [facility] [address] [id number] [address] [place] [address], [place] [id number] Jan, [facility] [address] [id number] [facility] [place] [address] Jan, [facility] [address] [id number] [address] [place] [address], [place] [id number] Jan, [facility] [address] [id number] [address] [place] [address], [place] [id number] Jan, [facility] [address] [id number] [address] [place] [address], [place] [id number] Jan, [facility] [address] [id number] [address] [place] [address], [place] [id number] Jan, [facility] [address] [id number] [address] [place] [address], [place] [id number] Jan, [facility] [address] [id number] [address] [place] [address], [place] [id number] Jan, [facility] [address] [id number] [address] [place] [address], [place] [id number] Jan, [facility] [address] [id number] [address] [place] [address], [place] [id number] Dec, [facility] [address] [id number] [address] [place] [address], [place] [id number] Dec, [facility] [address] [id number] [address] [place] [address], [place] [id number] Dec, [facility] [address] [id number] [address] [place] [address], [place] [id number] Dec, [facility] [address] [id number] [address] [place] [address], [place] [address] Dec, [facility] [address] [id number] [address] [place] [address], [place] [id number] Dec, [facility] [address] [id number] [address] [place] [address], [place] [id number] Dec, [facility] [address] [id number] [address] [place] [address], [place] [id number] Dec, [facility] [address] [id number] [facility] [place] [address] Dec, [facility] [address] [id number] [address] [place] [address], [place] [address] Dec, [facility] [address] [id number] [address] [place] [address], [place] [id number] Dec, [facility] [address] [id number] [address] [place] [address], [place] [address] Dec, [facility] [address] [id number] [address] [place] [address], [place] [address] Nov, [facility] [address] [id number] [address] [place] [address], [place] [id number] Nov, [facility] [address] [id number] [address] [place] [address], [place] [address] Nov, [facility] [address] [id number] [address] [place] [address], [place] [address] Nov, [facility] [address] [id number] [address] [place] [address], [place] [id number] Nov, [facility] [address] [id number] [address] [place] [address], [place] [address] Nov, [facility] [address] [id number] [address] [place] [address], [place] [address] Nov, [facility] [address] [id number] [address] [place] [address], [place] [address] Nov, [facility] [address] [id number] [address] [place] [address], [place] [address] Nov, [facility] [address] [id number] [address] [place] [address], [place] [id number] Nov, [facility] [address] [id number] [address] [place] [address], [place] [address] Nov, [facility] [address] [id number] [facility] [place] [address] Nov, [facility] [address] [id number] [address] [place] [address], [place] [id number] Nov, [facility] [address] [id number] [address] [place] [address], [place] [id number] Nov, [facility] [address] [id number] [address] [place] [address], [place] [id number] October, [facility] [address] [id number] [address] [place] [address], [place] [address] October, [facility] [address] [id number] [address] [place] [address], [place] [id number] October, [facility] [address] [id number] [address] [place] [address], [place] [id number] October, [facility] [address] [id number] [address] [place] [address], [place] [id number] October, [facility] [address] [id number] [address] [place] [address], [place] [id number] October, [facility] [address] [id number] [address] [place] [address], [place] [address] October, [facility] [address] [id number] [address] [place] [address], [place] [id number] October, [facility] [address] [id number] [address] [place] [address], [place] [id number] October, [facility] [address] [id number] [address] [place] [address], [place] [id number] October, [facility] [address] [id number] [address] [place] [address], [place] [id number] October, [facility] [address] [id number] [address] [place] [address], [place] [id number] October, [facility] [address] [id number] [address] [place] [address], [place] [id number] Sep, [facility] [address] [id number] [facility] [place] [address] Sep, [facility] [address] [id number] [address] [place] [address], [place] [address] Sep, [facility] [address] [id number] [facility] [place] [address] Sep, [facility] [address] [id number] [address] [place] [address], [place] [address] Sep, [facility] [address] [id number] [address] [place] [address], [place] [id number] Sep, [facility] [address] [id number] [address] [place] [address], [place] [id number] Aug, [facility] [address] [id number] [address] [place] [address], [place] [address] Aug, [facility] [address] [id number] [address] [place] [address], [place] [id number] Aug, [facility] [address] [id number] [address] [place] [address], [place] [id number] Aug, [facility] [address] [id number] [address] [place] [address], [place] [id number] Aug, [facility] [address] [id number] [address] [place] [address], [place] [id number] Aug, [facility] [address] [id number] [address] [place] [address], [place] [id number] Jul, [facility] [address] [id number] [address] [place] [address], [place] [id number] Jul, [facility] [address] [id number] [address] [place] [address], [place] [id number] Jul, [facility] [address] [id number] [address] [place] [address], [place] [address] Jul, [facility] [address] [id number] [address] [place] [address], [place] [id number] 13 Jul, 2013 [facility] [address] [id number] [address] [place] [address], [place] [id number] Jul, [facility] [address] [id number] [address] [place] [address], [place] [id number] Jul, [facility] [address] [id number] [address] [place] [address], [place] [id number] Jul, [facility] [address] [id number] [address] [place] [address], [place] [address] Jul, [facility] [address] [id number] [address] [place] [address], [place] [address] Jul, [facility] [address] [id number] [address] [place] [address], [place] [id number] Jun, [facility] [address] [id number] [address] [place] [address], [place] [id number] Jun, [facility] [address] [id number] [address] [place] [address], [place] [id number] Jun, [facility] [address] [id number] [address] [place] [address], [place] [id number] Jun, [facility] [address] [id number] [address] [place] [address], [place] [address] Jun, [facility] [address] [id number] [address] [place] [address], [place] [id number] Jun, [facility] [address] [id number] [address] [place] [address], [place] [address] Jun, [facility] [address] [id number] [address] [place] [address], [place] [id number] Jun, [facility] [address] [id number] [address] [place] [address], [place] [address] May, [facility] [address] [id number] [address] [place] [address], [place] [id number] May, [facility] [address] [id number] [address] [place] [address], [place] [id number] May, [facility] [address] [id number] [address] [place] [address], [place] [address] May, [facility] [address] [id number] [address] [place] [address], [place] [address] May, [facility] [address] [id number] [address] [place] [address], [place] [address] May, [facility] [address] [id number] [address] [place] [address], [place] [address] May, [facility] [address] [id number] [address] [place] [address], [place] [id number] May, [facility] [address] [id number] [address] [place] [address], [place] [address] Apr, [facility] [address] [id number] [address] [place] [address] Apr, [facility] [address] [id number] [address] [place] [address], [place] [address] Apr, [facility] [address] [id number] [address] [place] [address] Apr, [facility] [address] [id number] [address] [place] [address] Apr, [facility] [address] [id number] [address] [place] [address] Apr, [facility] [address] [id number] [address] [place] [address], [place] [address] Mar, [facility] [address] [id number] [address] [place] [address] Mar, [facility] [address] [id number] [address] [place] [address], [place] [address] Mar, [facility] [address] [id number] [address] [place] [address], [place] [address] Mar, [facility] [address] [id number] [address] [place] [address], [place] [id number] Mar, [facility] [address] [id number] [address] [place] [address], [place] [address] Mar, [facility] [address] [id number] [address] [place] [address], [place] [address] Mar, [facility] [address] [id number] [address] [place] [address], [place] [id number] 30 Feb, 2012 [facility] [address] [id number] [address] [place] [address], [place] [id number] 30 Feb, 2013 [facility] [address] [id number] [address] [place] [address], [place] [address] 27 Feb, 2013 [facility] [address] [id number] [address] [place] [address], [place] [address] Feb, 2012 [facility] [address] [id number] [address] [place] [address], [place] [address] Feb, [facility] [address] [id number] [address] [place] [address], [place] [address] Feb, [facility] [address] [id number] [address] [place] [address], [place] [address] Jan, [facility] [address] [id number] [address] [place] [address], [place] [address] Jan, [facility] [address] [id number] [address] [place] [address], [place] [address] Jan, [facility] [address] [id number] [address] [place] [address], [place] [address] Jan, [facility] [address] [id number] [address] [place] [address], [place] [address] Jan, [facility] [address] [id number] [address] [place] [address], [place] [address] Jan, [facility] [address] [id number] [address] [place] [address], [place] [address] Jan, [facility] [address] [id number] [address] [place] [address], [place] [address] Jan, [facility] [address] [id number] [address] [place] [address], [place] [id number] Jan, [facility] [address] [id number] [address] [place] [address], [place] [address] Dec, [facility] [address] [id number] [address] [place] [address], [place] [address] Dec, [facility] [address] [id number] [address] [place] [address], [place] [id number] Dec, [facility] [address] [id number] [address] [place] [address], [place] [id number] Dec, [facility] [address] [id number] [address] [place] [address], [place] [address] Dec, [facility] [address] [id number] [address] [place] [address], [place] [address] Dec, [facility] [address] [id number] [address] [place] [address], [place] [id number] Dec, [facility] [address] [id number] [address] [place] [address], [place] [address] Dec, [facility] [address] [id number] [address] [place] [address], [place] [address] Dec, [facility] [address] [id number] [address] [place] [address], [place] [address] Dec, [facility] [address] [id number] [address] [place] [address], [place] [id number] Dec, [facility] [address] [id number] [address] [place] [address], [place] [id number] Dec, [facility] [address] [id number] [address] [place] [address], [place] [id number] Dec, [facility] [address] [id number] [address] [place] [address], [place] [address] Nov, [facility] [address] [id number] [address] [place] [address], [place] [address] Nov, [facility] [address] [id number] [address] [place] [address], [place] [address] Nov, [facility] [address] [id number] [address] [place] [address], [place] [address] Nov, [facility] [address] [id number] [address] [place] [address], [place] [address] October, [facility] [address] [id number] [address] [place] [address], [place] [address] October, [facility] [address] [id number] [address] [place] [address], [place] [address] October, [facility] [address] [id number] [address] [place] [address], [place] [address] October, [facility] [address] [id number] [address] [place] [address], [place] [address] October, [facility] [address] [id number] [address] [place] [address], [place] [id number] October, [facility] [address] [id number] [address] [place] [address], [place] [address] Sep, [facility] [address] [id number] [address] [place] [address], [place] [address] Sep, [facility] [address] [id number] [address] [place] [address], [place] [address] Sep, [facility] [address] [id number] [address] [place] [address], [place] [address] Sep, [facility] [address] [id number] [address] [place] [address], [place] [address] Sep, [facility] [address] [id number] [facility] [place] [address] 16 Sep, 2012 [facility] [address] [id number] [address] [place] [address], [place] [id number] 12 Sep, 2012 [facility] [address] [id number] [address] [place] [address], [place] [id number] Sep, [facility] [address] [id number] [address] [place] [address], [place] [id number] Sep, [facility] [address] [id number] [address] [place] [address], [place] [address] Sep, [facility] [address] [id number] [address] [place] [address], [place] [address] Sep, [facility] [address] [id number] [address] [place] [address], [place] [id number] Aug, [facility] [address] [id number] [address] [place] [address], [place] [address] 25 Aug, 2012 [facility] [address] [id number] [address] [place] [address], [place] [id number] 25 Aug, 2012 [facility] [address] [id number] [address] [place] [address], [place] [id number] 21 Aug, 2012 [facility] [address] [id number] [address] [place] [address], [place] [id number] 19 Aug, 2012 [facility] [address] [id number] [address] [place] [address], [place] [id number] 18 Aug, 2012 [facility] [address] [id number] [address] [place] [address], [place] [id number] 17 Aug, 2012 [facility] [address] [id number] [address] [place] [address], [place] [id number] 15 Aug, 2012 [facility] [address] [id number] [address] [place] [address], [place] [id number] 15 Aug, 2012 [facility] [address] [id number] [address] [place] [address], [place] [address] Aug, [facility] [address] [id number] [address] [place] [address], [place] [id number] Aug, [facility] [address] [id number] [address] [place] [address], [place] [id number] Aug, [facility] [address] [id number] [address] [place] [address], [place] [id number] Jul, [facility] [address] [id number] [address] [place] [address], [place] [address] Jul, [facility] [address] [id number] [address] [place] [address], [place] [id number] Jul, [facility] [address] [id number] [address] [place] [address], [place] [id number] Jul, [facility] [address] [id number] [address] [place] [address], [place] [id number] Jul, [facility] [address] [id number] [address] [place] [address], [place] [id number] Jul, [facility] [address] [id number] [address] [place] [address], [place] [id number] Jul, [facility] [address] [id number] [address] [place] [address], [place] [id number] Jul, [facility] [address] [id number] [address] [place] [address], [place] [id number] Jul, [facility] [address] [id number] [address] [place] [address], [place] [id number] Jul, [facility] [address] [id number] [address] [place] [address], [place] [id number] May, [facility] [address] [id number] [place] [id number] May, [facility] [address] [id number] [address] [place] [address], [place] [id number] May, [facility] [address] [id number] [address] [place] [id number] May, [facility] [address] [facility] [id number] [address] [place] [id number] May, [facility] [address] [facility] [id number] [address] [place] [address] Apr, [facility] [address] [id number] [place] [id number] Apr, [facility] [address] [facility] [id number] [address] [place] [id number] Apr, [facility] [address] [facility] [id number] [address] [place] [phone] Mar, [facility] [address] [id number] [place] [id number] Mar, [facility] [address] [facility] [id number] [address] [place] [id number] Mar, [facility] [address] [id number] [place] [id number] Feb, [facility] [address] [facility] [id number] [address] [place] [id number] Feb, [facility] [address] [facility] [id number] [address] [place] [id number] Feb, [facility] [address] [id number] [place] [id number] Feb, [facility] [address] [id number] [place] [id number] Feb, [facility] [address] [id number] [place] [id number] Jan, [facility] [address] [id number] [address] [place] [address], [place] [id number] Jan, [facility] [address] [id number] [place] [id number] Jan, [facility] [address] [id number] [place] [id number] Jan, [facility] [address] [id number] [place] [id number] Jan, [facility] [address] [facility] [id number] [address] [place] [address], [place] [id number] Jan, [facility] [address] [facility] [id number] [address] [place] [address], [place] [id number] Jan, [facility] [address] [facility] [id number] [address] [place] [address], [place] [id number] Aug, [facility] [address] [id number] [place] [id number] Aug, [facility] [address] [facility] [id number] [address] [place] [address], [place] [id number] Jul, [facility] [address] [facility] [id number] [address] [place] [address], [place] [id number] Jul, [facility] [address] [facility] [id number] [address] [place] [address], [place] [id number] Jul, [facility] [address] [id number] [place] [id number] Jul, [facility] [address] [facility] [id number] [address] [place] [address], [place] [id number] Jul, [facility] [address] [id number] [place] [id number] Jul, [facility] [address] [facility] [id number] [address] [place] [address], [place] [id number] Jul, [facility] [address] [id number] [place] [id number] Jul, [facility] [address] [id number] [place] [id number] Jul, [facility] [address] [id number] [place] [id number] Jul, [facility] [address] [facility] [id number] [address] [place] [address], [place] [id number] May, [facility] [address] [id number] [address] [place] [id number] May, [facility] [address] [id number] [address] [place] [phone] May, [facility] [address] [id number] [address] [place] [id number] Apr, [facility] [address] [id number] [address] [place] [id number] Jan, [facility] [address] [id number] [address] [place] [id number] Jan, [facility] [address] [id number] [address] [place] [phone] Dec, [facility] [address] [id number] [address] [place] [id number] Dec, [facility] [address] [id number] [address] [place] [id number] May, [facility] [address] [id number] [address] [place] [id number] Mar, [facility] [address] [id number] [address] [place] [id number] Mar, [facility] [address] [id number] [address] [place] [id number] Jan, IMMUNIZATIONS No Known Immunizations SOCIAL HISTORY [...]
--- OUTSIDE RECORDS SUMMARY | 2020-01-28 12:41 | XMS REPORT ---
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 Active 882530047 Problem History of venous thromboembolism V12.51 Active 205783837 Problem Cellulitis of unspecified part of limb L03.119 Active 041220743 Problem Gastroesophageal reflux disease without esophagitis K21.9 Active 175233652 Problem History of pulmonary embolism Z86.711 Active 164293320 Problem Pseudotumor cerebri G93.2 Active 84264979 Problem History of DVT (deep vein thrombosis) Z86.718 Active 329732371 ALLERGIES No Information ENCOUNTERS Encounter Location Date Diagnosis [place] [id number] [facility] [id number] [address] [place] [address] Apr, long-term (current) use of 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 Z79.01 [facility] [address] [facility] [id number] [address] [place] [address] Apr, long-term 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.01 [facility] [address] [facility] [id number] [address] [place] [address] Apr, Cellulitis of unspecified pa rt of limb L03.119 ; Allergic contact dermatitis due to adhesives L23.1 and Chronic pain syndrome G89.4 [facility] [address] [facility] [id number] [address] [place] [address] Apr, [place] [address] [place] [id number] [address] [place] [address] Apr, wool puller 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.01 ; Cellulitis of unspecified part of limb L03.119 ; Chronic pain syndrome G89.4 and Anxiety F41.9 [facility] [address] [place] [id number] [address] [place] [address] 16 Apr, 2015 [facility] [address] [place] [id number] [place] [address] Apr, [place] [address] [place] [id number] [place] [address] Mar, [place] [address] [address] Mar, [place] [address] [address] Mar, Sore throat J02.9 ; Gastroes ophageal reflux disease without esophagitis K21.9 ; Pseudotumor cerebri G93.2 ; Chronic pain syndrome G89.4 ; Choriocarcinoma C58 ; History of pulmonary embolism Z86.711 ; History of DVT (deep vein thrombosis) Z86.718 ; Anxiety F41.9 and Tachycardia R00.0 [place] [address] [address] Feb, Anxiety 300.00 and Chronic p ain 338.29 [place] [address] [place] [id number] [address] [place] [address] Feb, [place] [address] [place] [id number] [address] [place] [address] Feb, [place] [address] [address] Jan, wool puller 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 therapy V58.61 and Dysuria 788.1 [place] [address] [place] [id number] [place] [address] Jan, Dysuria 788.1 [facility] [address] [place] [id number] [address] [place] [address] Jan, Anxiety 300.00 and Chronic p ain 338.29 [facility] [address] [place] [id number] [place] [address] Jan, [facility] [address] [address] Jan, [facility] [address] [address] Jan, [place] [address] [address] Dec, Weakness 780.79 [place] [address] [address] Dec, long-term 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 therapy V58.61 [place] [address] [address] Dec, Palpitations 785.1 ; Tremor 781.0 ; Weakness 780.79 ; long-term current use of anticoagulant therapy V58.61 and Yeast vaginitis 112.1 [place] [address] [place] [id number] [address] [place] [address] Dec, [place] [address] [address] Dec, Cervicalgia 723.1 ; Tachycar yoseph 785.0 ; Pseudotumor cerebri 348.2 and History of venous thromboembolism V12.51 [place] [address] [address] Nov, [place] [address] [address] Nov, [place] [address] [address] Nov, Tachycardia 785.0 ; Pseudotu mor cerebri 348.2 ; Anxiety 300.00 and History of venous thromboembolism V12.51 [facility] [address] [id number] [address] [place] [address] Nov, [facility] [address] [id number] [address] [place] [address] 18 Nov, 2014 [facility] [address] [id number] [address] [place] [address] Nov, [facility] [address] [id number] [address] [place] [address] Nov, [facility] [address] [facility] [id number] [address] [place] [address] Nov, [facility] [address] [facility] [id number] [address] [place] [address] Nov, [facility] [address] [facility] [id number] [address] [place] [phone] Nov, [facility] [address] [facility] [id number] [address] [place] [address] October, [facility] [address] [facility] [id number] [address] [place] [phone] October, [facility] [address] [place] [id number] [address] [place] [address] October, Pain in thoracic spine 724.1 and Tachycardia 785.0 [facility] [address] [id number] [address] [place] [address] October, [facility] [address] [id number] [address] [place] [address] October, [facility] [address] [facility] [id number] [address] [place] [phone] 14 Sep, 2014 [facility] [address] [facility] [id number] [address] [place] [phone] Sep, [facility] [address] [id number] [facility] [address] Aug, [facility] [address] [id number] [address] [place] [address], [place] [address] Aug, [facility] [address] [id number] [address] [place] [address], [place] [address] Aug, [facility] [address] [id number] [address] [place] [address], [place] [address] Aug, [facility] [address] [id number] [address] [place] [address], [place] [address] Aug, [facility] [address] [id number] [address] [place] [address], [place] [address] Aug, [facility] [address] [id number] [address] [place] [address], [place] [address] Aug, [facility] [address] [id number] [address] [place] [address], [place] [address] Aug, [facility] [address] [id number] [address] [place] [address], [place] [address] Aug, [facility] [address] [id number] [address] [place] [address], [place] [address] Aug, [facility] [address] [id number] [address] [place] [address], [place] [address] Aug, [facility] [address] [id number] [address] [place] [address], [place] [address] Aug, 2014 [facility] [address] [id number] [address] [place] [address], [place] [address] Jul, [facility] [address] [id number] [address] [place] [address], [place] [address] Jul, [facility] [address] [id number] [address] [place] [address], [place] [address] Jul, [facility] [address] [id number] [address] [place] [address], [place] [address] Jul, [facility] [address] [id number] [address] [place] [address], [place] [address] 23 Jul, 2014 [facility] [address] [id number] [address] [place] [address], [place] [address] 23 Jul, 2014 [facility] [address] [id number] [address] [place] [address], [place] [address] 23 Jul, 2014 [facility] [address] [id number] [address] [place] [address], [place] [address] 23 Jul, 2014 [facility] [address] [id number] [address] [place] [address], [place] [address] 20 Jul, 2014 [facility] [address] [id number] [address] [place] [address], [place] [address] 20 Jul, 2014 [facility] [address] [id number] [address] [place] [address], [place] [address] 19 Jul, 2014 [facility] [address] [id number] [address] [place] [address], [place] [address] 19 Jul, 2014 [facility] [address] [id number] [address] [place] [address], [place] [address] 17 Jul, 2014 [facility] [address] [id number] [address] [place] [address], [place] [address] 17 Jul, 2014 [facility] [address] [id number] [address] [place] [address], [place] [address] 16 Jul, 2014 [facility] [address] [id number] [address] [place] [address], [place] [address] 16 Jul, 2014 [facility] [address] [id number] [address] [place] [address], [place] [address] 16 Jul, 2014 [facility] [address] [id number] [address] [place] [id number] 16 Jul, 2014 [facility] [address] [id number] [address] [place] [id number] 13 Jul, 2014 [facility] [address] [id number] [address] [place] [address], [place] [address] Jul, [facility] [address] [id number] [address] [place] [address], [place] [address] Jul, [facility] [address] [id number] [address] [place] [address], [place] [address] Jul, 2014 [facility] [address] [id number] [address] [place] [address], [place] [address] Jul, 2014 [facility] [address] [id number] [address] [place] [address], [place] [address] Jul, [facility] [address] [id number] [address] [place] [address], [place] [address] Jul, [facility] [address] [id number] [address] [place] [address], [place] [address] Jul, [facility] [address] [id number] [address] [place] [address], [place] [address] Jul, [facility] [address] [id number] [address] [place] [address], [place] [address] Jul, [facility] [address] [id number] [address] [place] [address], [place] [address] Jul, [facility] [address] [id number] [address] [place] [address], [place] [address] Jul, [facility] [address] [id number] [address] [place] [address], [place] [address] Jun, [facility] [address] [id number] [address] [place] [address], [place] [address] Jun, [facility] [address] [id number] [address] [place] [address], [place] [address] Jun, [facility] [address] [id number] [address] [place] [address], [place] [address] Jun, [facility] [address] [id number] [address] [place] [address], [place] [address] Jun, [facility] [address] [id number] [address] [place] [address], [place] [address] Jun, [facility] [address] [id number] [address] [place] [address], [place] [address] Jun, [facility] [address] [id number] [address] [place] [address], [place] [address] Jun, [facility] [address] [id number] [address] [place] [address], [place] [address] Jun, [facility] [address] [id number] [address] [place] [address], [place] [address] Jun, [facility] [address] [id number] [address] [place] [address], [place] [address] Jun, [facility] [address] [id number] [address] [place] [address], [place] [address] Jun, [facility] [address] [id number] [address] [place] [address], [place] [address] Jun, [facility] [address] [id number] [address] [place] [address], [place] [address] Jun, [facility] [address] [id number] [address] [place] [address], [place] [address] Jun, [facility] [address] [id number] [address] [place] [address], [place] [address] Jun, [facility] [address] [id number] [address] [place] [address], [place] [address] Jun, [facility] [address] [id number] [address] [place] [address], [place] [address] Jun, [facility] [address] [id number] [address] [place] [address], [place] [address] Jun, [facility] [address] [id number] [address] [place] [address], [place] [address] Jun, [facility] [address] [id number] [address] [place] [address], [place] [address] May, [facility] [address] [id number] [address] [place] [address], [place] [address] May, [facility] [address] [id number] [address] [place] [address], [place] [address] May, [facility] [address] [id number] [address] [place] [address], [place] [address] May, [facility] [address] [id number] [address] [place] [address], [place] [address] May, [facility] [address] [id number] [address] [place] [address], [place] [address] May, [facility] [address] [id number] [address] [place] [address], [place] [address] May, [facility] [address] [id number] [address] [place] [address], [place] [address] May, [facility] [address] [id number] [address] [place] [address], [place] [address] May, [facility] [address] [id number] [address] [place] [address], [place] [address] May, [facility] [address] [id number] [address] [place] [address], [place] [address] May, [facility] [address] [id number] [address] [place] [address], [place] [address] 18 May, 2014 [facility] [address] [id number] [address] [place] [address], [place] [address] 18 May, 2014 [facility] [address] [id number] [address] [place] [address], [place] [address] 17 May, 2014 [facility] [address] [id number] [address] [place] [address], [place] [address] 16 May, 2014 [facility] [address] [id number] [address] [place] [address], [place] [address] 16 May, 2014 [facility] [address] [id number] [address] [place] [address], [place] [address] 15 May, 2014 [facility] [address] [id number] [address] [place] [address], [place] [address] 15 May, 2014 [facility] [address] [id number] [address] [place] [address], [place] [address] May, [facility] [address] [id number] [address] [place] [address], [place] [address] May, [facility] [address] [id number] [address] [place] [address], [place] [address] May, [facility] [address] [id number] [address] [place] [address], [place] [address] May, [facility] [address] [id number] [address] [place] [address], [place] [address] May, [facility] [address] [id number] [address] [place] [address], [place] [address] May, [facility] [address] [id number] [address] [place] [address], [place] [address] May, [facility] [address] [id number] [address] [place] [address], [place] [address] May, [facility] [address] [id number] [address] [place] [address], [place] [address] May, [facility] [address] [id number] [address] [place] [address], [place] [address] May, [facility] [address] [id number] [address] [place] [address], [place] [address] May, [facility] [address] [id number] [address] [place] [address], [place] [address] May, [facility] [address] [id number] [address] [place] [address], [place] [address] May, [facility] [address] [id number] [address] [place] [address], [place] [address] May, [facility] [address] [id number] [address] [place] [address], [place] [address] May, [facility] [address] [id number] [address] [place] [address], [place] [address] May, [facility] [address] [id number] [address] [place] [address], [place] [address] Apr, [facility] [address] [id number] [address] [place] [address], [place] [address] Apr, [facility] [address] [id number] [address] [place] [address], [place] [address] Apr, [facility] [address] [id number] [address] [place] [address], [place] [address] Apr, [facility] [address] [id number] [address] [place] [address], [place] [address] Apr, [facility] [address] [id number] [address] [place] [address], [place] [address] Apr, [facility] [address] [id number] [address] [place] [address], [place] [address] Apr, [facility] [address] [id number] [address] [place] [address], [place] [address] Apr, [facility] [address] [id number] [address] [place] [address], [place] [address] Apr, [facility] [address] [id number] [address] [place] [address], [place] [address] Apr, [facility] [address] [id number] [address] [place] [address], [place] [address] Mar, [facility] [address] [id number] [address] [place] [address], [place] [address] Mar, [facility] [address] [id number] [address] [place], [place] [address] [address] Mar, [facility] [address] [id number] [address] [place] [address], [place] [address] 31 Mar, 2013 [facility] [address] [id number] [address] [place] [address], [place] [address] Mar, [facility] [address] [id number] [address] [place] [address], [place] [address] 30 Mar, 2014 [facility] [address] [id number] [address] [place] [address], [place] [address] Mar, [facility] [address] [id number] [address] [place] [address], [place] [address] Mar, [facility] [address] [id number] [address] [place] [address], [place] [address] Mar, [facility] [address] [id number] [address] [place] [address], [place] [address] Mar, [facility] [address] [id number] [address] [place] [address] Mar, [facility] [address] [id number] [address] [place] [id number] Mar, [facility] [address] [id number] [address] [place] [id number] Mar, [facility] [address] [id number] [address] [place] [address] Mar, 2013 [facility] [address] [id number] [address] [place] [id number] Mar, 2013 [facility] [address] [id number] [address] [place] [id number] Mar, [facility] [address] [id number] [address] [place] [id number] Mar, [facility] [address] [id number] [address] [place] [id number] Mar, 2013 [facility] [address] [id number] [address] [place] [address], [place] [address] 02 Mar, 2013 [facility] [address] [id number] [address] [place] [address], [place] [address] 02 Mar, 2013 [facility] [address] [id number] [address] [place] [address], [place] [address] 05 Sep, 2013 [facility] [address] [id number] [address] [place] [address], [place] [address] 05 Sep, 2013 [facility] [address] [id number] [address] [place] [address], [place] [address] 04 Sep, 2013 [facility] [address] [id number] [address] [place] [address], [place] [address] 04 Sep, 2013 [facility] [address] [id number] [address] [place] [address], [place] [address] 03 Feb, 2013 [facility] [address] [id number] [address] [place] [address], [place] [address] 03 Feb, 2013 [facility] [address] [id number] [address] [place] [address], [place] [id number] 02 Feb, 2013 [facility] [address] [id number] [address] [place] [address], [place] [address] Feb, 2013 [facility] [address] [id number] [address] [place] [address], [place] [address] 02 Feb, 2013 [facility] [address] [id number] [address] [place] [address], [place] [address] Feb, 2013 [facility] [address] [id number] [address] [place] [address], [place] [address] Jan, [facility] [address] [id number] [address] [place] [address], [place] [address] Jan, [facility] [address] [id number] [address] [place] [address], [place] [address] Jan, [facility] [address] [id number] [address] [place] [address], [place] [address] Jan, [facility] [address] [id number] [facility] [address] Jan, [facility] [address] [id number] [address] [place] [address], [place] [address] Jan, [facility] [address] [id number] [address] [place] [address], [place] [address] Jan, [facility] [address] [id number] [address] [place] [address], [place] [address] Jan, [facility] [address] [id number] [address] [place] [address], [place] [address] Jan, [facility] [address] [id number] [address] [place] [address], [place] [address] Jan, [facility] [address] [id number] [address] [place] [address], [place] [address] Jan, [facility] [address] [id number] [address] [place] [address], [place] [address] Jan, [facility] [address] [id number] [address] [place] [address], [place] [address] Dec, [facility] [address] [id number] [address] [place] [address], [place] [address] Dec, [facility] [address] [id number] [address] [place] [address], [place] [address] Dec, [facility] [address] [id number] [address] [place] [address], [place] [address] Dec, [facility] [address] [id number] [address] [place] [address], [place] [address] Dec, [facility] [address] [id number] [address] [place] [address], [place] [address] Dec, [facility] [address] [id number] [address] [place] [address], [place] [address] Dec, [facility] [address] [id number] [address] [place] [address], [place] [address] Dec, [facility] [address] [id number] [facility] [place] [address] Dec, [facility] [address] [id number] [address] [place] [address], [place] [address] Dec, [facility] [address] [id number] [address] [place] [address], [place] [address] Dec, [facility] [address] [id number] [address] [place] [address], [place] [address] Dec, [facility] [address] [id number] [address] [place] [address], [place] [address] Nov, [facility] [address] [id number] [address] [place] [address], [place] [address] Nov, [facility] [address] [id number] [address] [place] [address], [place] [address] Nov, [facility] [address] [id number] [address] [place] [address], [place] [address] Nov, [facility] [address] [id number] [address] [place] [address], [place] [address] Nov, [facility] [address] [id number] [address] [place] [address], [place] [address] Nov, [facility] [address] [id number] [address] [place] [address], [place] [address] Nov, [facility] [address] [id number] [address] [place] [address], [place] [address] Nov, [facility] [address] [id number] [address] [place] [address], [place] [address] Nov, [facility] [address] [id number] [address] [place] [address], [place] [address] Nov, [facility] [address] [id number] [address] [place] [address], [place] [address] Nov, [facility] [address] [id number] [facility] [address] Nov, [facility] [address] [id number] [address] [place] [address], [place] [address] Nov, [facility] [address] [id number] [address] [place] [address], [place] [address] Nov, [facility] [address] [id number] [address] [place] [address], [place] [address] October, [facility] [address] [id number] [address] [place] [address], [place] [address] October, [facility] [address] [id number] [address] [place] [address], [place] [address] October, [facility] [address] [id number] [address] [place] [address], [place] [address] October, [facility] [address] [id number] [address] [place] [address], [place] [address] October, [facility] [address] [id number] [address] [place] [address], [place] [address] October, [facility] [address] [id number] [address] [place] [address], [place] [address] October, [facility] [address] [id number] [address] [place] [address], [place] [address] October, [facility] [address] [id number] [address] [place] [address], [place] [address] October, [facility] [address] [id number] [address] [place] [address], [place] [address] October, [facility] [address] [id number] [address] [place] [address], [place] [address] October, [facility] [address] [id number] [address] [place] [address], [place] [address] October, [facility] [address] [id number] [address] [place] [address], [place] [address] Sep, [facility] [address] [id number] [facility] [address] Sep, [facility] [address] [id number] [address] [place] [address], [place] [address] Sep, [facility] [address] [id number] [facility] [address] Sep, [facility] [address] [id number] [address] [place] [address], [place] [address] Sep, [facility] [address] [id number] [address] [place] [address], [place] [address] Sep, [facility] [address] [id number] [address] [place] [address], [place] [address] Aug, [facility] [address] [id number] [address] [place] [address], [place] [address] Aug, [facility] [address] [id number] [address] [place] [address], [place] [address] Aug, [facility] [address] [id number] [address] [place] [address], [place] [address] Aug, [facility] [address] [id number] [address] [place] [address], [place] [address] Aug, [facility] [address] [id number] [address] [place] [address], [place] [address] Aug, [facility] [address] [id number] [address] [place] [address], [place] [address] Jul, [facility] [address] [id number] [address] [place] [address], [place] [address] Jul, [facility] [address] [id number] [address] [place] [address], [place] [address] Jul, [facility] [address] [id number] [address] [place] [address], [place] [address] Jul, [facility] [address] [id number] [address] [place] [address], [place] [address] 13 Jul, 2013 [facility] [address] [id number] [address] [place] [address], [place] [address] Jul, [facility] [address] [id number] [address] [place] [address], [place] [address] Jul, [facility] [address] [id number] [address] [place] [address], [place] [address] Jul, [facility] [address] [id number] [address] [place] [address], [place] [address] Jul, [facility] [address] [id number] [address] [place] [address], [place] [address] Jul, [facility] [address] [id number] [address] [place] [address], [place] [address] Jun, [facility] [address] [id number] [address] [place] [address], [place] [address] Jun, [facility] [address] [id number] [address] [place] [address], [place] [address] Jun, [facility] [address] [id number] [address] [place] [address], [place] [address] Jun, [facility] [address] [id number] [address] [place] [address], [place] [address] Jun, [facility] [address] [id number] [address] [place] [address], [place] [address] Jun, [facility] [address] [id number] [address] [place] [address], [place] [address] Jun, [facility] [address] [id number] [address] [place] [address], [place] [address] Jun, [facility] [address] [id number] [address] [place] [address], [place] [address] May, [facility] [address] [id number] [address] [place] [address], [place] [address] May, [facility] [address] [id number] [address] [place] [address], [place] [address] May, [facility] [address] [id number] [address] [place] [address], [place] [address] May, [facility] [address] [id number] [address] [place] [address], [place] [address] May, [facility] [address] [id number] [address] [place] [address], [place] [address] May, [facility] [address] [id number] [address] [place] [address], [place] [address] May, [facility] [address] [id number] [address] [place] [address], [place] [address] May, [facility] [address] [id number] [address] [place] [address], [place] [address] Apr, [facility] [address] [id number] [address] [place] [address] Apr, [facility] [address] [id number] [address] [place] [address], [place] [address] Apr, [facility] [address] [id number] [address] [place] [address] Apr, [facility] [address] [id number] [address] [place] [address] Apr, [facility] [address] [id number] [address] [place] [address] Apr, [facility] [address] [id number] [address] [place] [address], [place] [address] Mar, [facility] [address] [id number] [address] [place] [address] Mar, [facility] [address] [id number] [address] [place] [address], [place] [address] Mar, [facility] [address] [id number] [address] [place] [address], [place] [address] Mar, [facility] [address] [id number] [address] [place] [address], [place] [address] Mar, [facility] [address] [id number] [address] [place] [address], [place] [address] Mar, [facility] [address] [id number] [address] [place] [address], [place] [address] Mar, [facility] [address] [id number] [address] [place] [address], [place] [address] 30 Feb, 2012 [facility] [address] [id number] [address] [place] [address], [place] [address] 30 Feb, 2013 [facility] [address] [id number] [address] [place] [address], [place] [address] 27 Feb, 2013 [facility] [address] [id number] [address] [place] [address], [place] [address] Feb, 2012 [facility] [address] [id number] [address] [place] [address], [place] [address] Feb, [facility] [address] [id number] [address] [place] [address], [place] [address] Feb, [facility] [address] [id number] [address] [place] [address], [place] [address] Jan, [facility] [address] [id number] [address] [place] [address], [place] [address] Jan, [facility] [address] [id number] [address] [place] [address], [place] [address] Jan, [facility] [address] [id number] [address] [place] [address], [place] [address] Jan, [facility] [address] [id number] [address] [place] [address], [place] [address] Jan, [facility] [address] [id number] [address] [place] [address], [place] [address] Jan, [facility] [address] [id number] [address] [place] [address], [place] [address] Jan, [facility] [address] [id number] [address] [place] [address], [place] [address] Jan, [facility] [address] [id number] [address] [place] [address], [place] [address] Jan, [facility] [address] [id number] [address] [place] [address], [place] [address] Dec, [facility] [address] [id number] [address] [place] [address], [place] [address] Dec, [facility] [address] [id number] [address] [place] [address], [place] [address] Dec, [facility] [address] [id number] [address] [place] [address], [place] [address] Dec, [facility] [address] [id number] [address] [place] [address], [place] [address] Dec, [facility] [address] [id number] [address] [place] [address], [place] [address] Dec, [facility] [address] [id number] [address] [place] [address], [place] [address] Dec, [facility] [address] [id number] [address] [place] [address], [place] [address] Dec, [facility] [address] [id number] [address] [place] [address], [place] [address] Dec, [facility] [address] [id number] [address] [place] [address], [place] [address] Dec, [facility] [address] [id number] [address] [place] [address], [place] [address] Dec, [facility] [address] [id number] [address] [place] [address], [place] [address] Dec, [facility] [address] [id number] [address] [place] [address], [place] [address] Dec, [facility] [address] [id number] [address] [place] [address], [place] [address] Nov, [facility] [address] [id number] [address] [place] [address], [place] [address] Nov, [facility] [address] [id number] [address] [place] [address], [place] [address] Nov, [facility] [address] [id number] [address] [place] [address], [place] [address] Nov, [facility] [address] [id number] [address] [place] [address], [place] [address] October, [facility] [address] [id number] [address] [place] [address], [place] [address] October, [facility] [address] [id number] [address] [place] [address], [place] [address] October, [facility] [address] [id number] [address] [place] [address], [place] [address] October, [facility] [address] [id number] [address] [place] [address], [place] [address] October, [facility] [address] [id number] [address] [place] [address], [place] [address] October, [facility] [address] [id number] [address] [place] [address], [place] [address] Sep, [facility] [address] [id number] [address] [place] [address], [place] [address] Sep, [facility] [address] [id number] [address] [place] [address], [place] [address] Sep, [facility] [address] [id number] [address] [place] [address], [place] [address] Sep, [facility] [address] [id number] [address] [place] [address], [place] [address] Sep, [facility] [address] [id number] [facility] [place] [address] 16 Sep, 2012 [facility] [address] [id number] [address] [place] [address], [place] [address] 12 Sep, 2012 [facility] [address] [id number] [address] [place] [address], [place] [address] Sep, [facility] [address] [id number] [address] [place] [address], [place] [address] Sep, [facility] [address] [id number] [address] [place] [address], [place] [address] Sep, [facility] [address] [id number] [address] [place] [address], [place] [address] Sep, [facility] [address] [id number] [address] [place] [address], [place] [address] Aug, [facility] [address] [id number] [address] [place] [address], [place] [address] 25 Aug, 2012 [facility] [address] [id number] [address] [place] [address], [place] [address] 25 Aug, 2012 [facility] [address] [id number] [address] [place] [address], [place] [address] 21 Aug, 2012 [facility] [address] [id number] [address] [place] [address], [place] [address] 19 Aug, 2012 [facility] [address] [id number] [address] [place] [address], [place] [address] 18 Aug, 2012 [facility] [address] [id number] [address] [place] [address], [place] [address] 17 Aug, 2012 [facility] [address] [id number] [address] [place] [address], [place] [address] 15 Aug, 2012 [facility] [address] [id number] [address] [place] [address], [place] [address] 15 Aug, 2012 [facility] [address] [id number] [address] [place] [address], [place] [address] Aug, [facility] [address] [id number] [address] [place] [address], [place] [address] Aug, [facility] [address] [id number] [address] [place] [address], [place] [address] Aug, [facility] [address] [id number] [address] [place] [address], [place] [address] Jul, [facility] [address] [id number] [address] [place] [address], [place] [address] Jul, [facility] [address] [id number] [address] [place] [address], [place] [address] Jul, [facility] [address] [id number] [address] [place] [address], [place] [address] Jul, [facility] [address] [id number] [address] [place] [address], [place] [address] Jul, [facility] [address] [id number] [address] [place] [address], [place] [address] Jul, [facility] [address] [id number] [address] [place] [address], [place] [address] Jul, [facility] [address] [id number] [address] [place] [address], [place] [address] Jul, [facility] [address] [id number] [address] [place] [address], [place] [address] Jul, [facility] [address] [id number] [address] [place] [address], [place] [address] Jul, [facility] [address] [id number] [address] [place] [address], [place] [address] May, [facility] [address] [id number] [place] [id number] May, [facility] [address] [id number] [address] [place] [address], [place] [address] May, [facility] [address] [id number] [address] [place] [id number] May, [facility] [address] [facility] [id number] [address] [place] [id number] May, [facility] [address] [facility] [id number] [address] [place] [id number] Apr, [facility] [address] [id number] [place] [id number] Apr, [facility] [address] [facility] [id number] [address] [place] [id number] Apr, [facility] [address] [facility] [id number] [address] [place] [id number] Mar, [facility] [address] [id number] [place] [id number] Mar, [facility] [address] [facility] [id number] [address] [place] [id number] Mar, [facility] [address] [id number] [place] [id number] Feb, [facility] [address] [facility] [id number] [address] [place] [id number] Feb, [facility] [address] [facility] [id number] [address] [place] [id number] Feb, [facility] [place] [address] [id number] [place] [id number] Feb, [facility] [address] [id number] [place] [id number] Feb, [facility] [address] [id number] [place] [id number] Jan, [facility] [address] [id number] [address] [place] [address], [place] [address] Jan, [facility] [address] [id number] [place] [id number] Jan, [facility] [address] [id number] [place] [id number] Jan, [facility] [address] [id number] [place] [id number] Jan, [facility] [address] [facility] [id number] [address] [place] [address], [place] [address] Jan, [facility] [address] [facility] [id number] [address] [place] [address], [place] [address] Jan, [facility] [address] [facility] [id number] [address] [place] [address], [place] [address] Aug, [facility] [address] [id number] [place] [id number] Aug, [facility] [address] [facility] [id number] [address] [place] [address], [place] [address] Jul, [facility] [address] [facility] [id number] [address] [place] [address], [place] [address] Jul, [facility] [address] [facility] [id number] [address] [place] [address], [place] [address] Jul, [facility] [address] [id number] [place] [id number] Jul, [facility] [address] [facility] [id number] [address] [place] [address], [place] [address] Jul, [facility] [address] [id number] [place] [id number] Jul, [facility] [address] [facility] [id number] [address] [place] [address], [place] [address] Jul, [facility] [address] [id number] [place] [id number] Jul, [facility] [address] [id number] [place] [id number] Jul, [facility] [address] [id number] [place] [id number] Jul, [facility] [address] [facility] [id number] [address] [place] [address], [place] [address] May, [facility] [address] [id number] [address] [place] [id number] May, [facility] [address] [id number] [address] [place] [id number] May, [facility] [address] [id number] [address] [place] [id number] Apr, [facility] [address] [id number] [address] [place] [id number] Jan, [facility] [address] [id number] [address] [place] [id number] Jan, [facility] [address] [id number] [address] [place] [phone] Dec, [facility] [address] [id number] [address] [place] [phone] Dec, [facility] [address] [id number] [address] [place] [phone] May, [facility] [address] [id number] [address] [place] [phone] Mar, [facility] [address] [id number] [address] [place] [phone] Mar, [facility] [address] [id number] [address] [place] [phone] Jan, IMMUNIZATIONS No Known Immunizations SOCIAL HISTORY Never Assessed REASON FOR VISIT PLAN OF CARE VITAL SIGNS Height 63 in 2014-05-10 Weight 191.5 lbs 2014-05-10 Temperature 99.2 degrees Fahrenheit 2014-05-10 Heart Rate 96 bpm 2014-05-10 Respiratory Rate 20 2014-05-10 Blood pressure systolic 128 mmHg 2014-05-10 Blood pressure diastolic 94 mmHg 2014-05-10 MEDICATIONS Unknown Medications RESULTS No Results PROCEDURES Procedure Date Ordered Result Body Site PROTHROMBIN TIME May 10, 2014 INSTRUCTIONS MEDICATIONS ADMINISTERED No Known Medications [...]
--- OUTSIDE RECORDS SUMMARY | 2020-01-28 12:41 | XMS REPORT ---
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 Intern Name Role Phone CEZAR JIMI Unavailable PROBLEMS Type Condition ICD9-CM Code APH71-IU Code Onset Dates Condition S tatus SNOMED Code Problem Chronic pain syndrome G89.4 Active 850073195 Problem Sore throat J02.9 Active 61673758 3 Problem Choriocarcinoma C58 Active 1881 42712 Problem terminologist current use of anticoagulant Z79.01 Active 483922432 Problem History of venous thromboembolism V12.51 Active 162095285 Problem Cellulitis of unspecified part of limb L03.119 Active 230655299 Problem Gastroesophageal reflux disease without esophagitis K21.9 Active 193611141 Problem History of pulmonary embolism Z86.711 Active 212927088 Problem Pseudotumor cerebri G93.2 Active 77510988 Problem History of DVT (deep vein thrombosis) Z86.718 Active 259218113 ALLERGIES No Information ENCOUNTERS Encounter Location Date Diagnosis [place] [id number] [facility] [id number] [address] [place] [phone] Apr, care home (current) use of 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 Z79.01 [facility] [address] [facility] [id number] [address] [place] [address] Apr, care home 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.01 [facility] [address] [facility] [id number] [address] [place] [address] Apr, Cellulitis of unspecified pa rt of limb L03.119 ; Allergic contact dermatitis due to adhesives L23.1 and Chronic pain syndrome G89.4 [facility] [address] [facility] [id number] [address] [place] [address] Apr, [place] [address] [place] [id number] [address] [place] [address] Apr, terminologist 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.01 ; Cellulitis of unspecified part of limb L03.119 ; Chronic pain syndrome G89.4 and Anxiety F41.9 [facility] [address] [place] [id number] [address] [place] [address] 16 Apr, 2015 [facility] [address] [place] [id number] [place] [address] Apr, [place] [address] [place] [id number] [place] [address] Mar, [place] [address] [address] Mar, [place] [address] [address] Mar, Sore throat J02.9 ; Gastroes ophageal reflux disease without esophagitis K21.9 ; Pseudotumor cerebri G93.2 ; Chronic pain syndrome G89.4 ; Choriocarcinoma C58 ; History of pulmonary embolism Z86.711 ; History of DVT (deep vein thrombosis) Z86.718 ; Anxiety F41.9 and Tachycardia R00.0 [place] [address] [address] Feb, Anxiety 300.00 and Chronic p ain 338.29 [place] [address] [place] [id number] [address] [place] [address] Feb, [place] [address] [place] [id number] [address] [place] [address] Feb, [place] [address] [address] Jan, terminologist 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 therapy V58.61 and Dysuria 788.1 [place] [address] [place] [id number] [place] [address] Jan, Dysuria 788.1 [facility] [address] [place] [id number] [address] [place] [address] Jan, Anxiety 300.00 and Chronic p ain 338.29 [facility] [address] [place] [id number] [place] [address] Jan, [facility] [address] [address] Jan, [facility] [address] [address] Jan, [place] [address] [address] Dec, Weakness 780.79 [place] [address] [address] Dec, care home 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 therapy V58.61 [place] [address] [address] Dec, Palpitations 785.1 ; Tremor 781.0 ; Weakness 780.79 ; care home current use of anticoagulant therapy V58.61 and Yeast vaginitis 112.1 [place] [address] [place] [id number] [address] [place] [address] Dec, [place] [address] [address] Dec, Cervicalgia 723.1 ; Tachycar yoseph 785.0 ; Pseudotumor cerebri 348.2 and History of venous thromboembolism V12.51 [place] [address] [address] Nov, [place] [address] [address] Nov, [place] [address] [address] Nov, Tachycardia 785.0 ; Pseudotu mor cerebri 348.2 ; Anxiety 300.00 and History of venous thromboembolism V12.51 [facility] [address] [id number] [address] [place] [address] Nov, [facility] [address] [id number] [address] [place] [address] 18 Nov, 2014 [facility] [address] [id number] [address] [place] [address] Nov, [facility] [address] [id number] [address] [place] [address] Nov, [facility] [address] [facility] [id number] [address] [place] [address] Nov, [facility] [address] [facility] [id number] [address] [place] [address] Nov, [facility] [address] [facility] [id number] [address] [place] [address] Nov, [facility] [address] [facility] [id number] [address] [place] [address] October, [facility] [address] [facility] [id number] [address] [place] [address] October, [facility] [address] [place] [id number] [address] [place] [address] October, Pain in thoracic spine 724.1 and Tachycardia 785.0 [facility] [address] [id number] [address] [place] [address] October, [facility] [address] [id number] [address] [place] [address] October, [facility] [address] [facility] [id number] [address] [place] [address] 14 Sep, 2014 [facility] [address] [facility] [id number] [address] [place] [address] Sep, [facility] [address] [id number] [facility] [address] Aug, [facility] [address] [id number] [address] [place] [address], [place] [address] Aug, [facility] [address] [id number] [address] [place] [address], [place] [address] Aug, [facility] [address] [id number] [address] [place] [address], [place] [address] Aug, [facility] [address] [id number] [address] [place] [address], [place] [address] Aug, [facility] [address] [id number] [address] [place] [address], [place] [address] Aug, [facility] [address] [id number] [address] [place] [address], [place] [address] Aug, [facility] [address] [id number] [address] [place] [address], [place] [address] Aug, [facility] [address] [id number] [address] [place] [address], [place] [address] Aug, [facility] [address] [id number] [address] [place] [address], [place] [address] Aug, [facility] [address] [id number] [address] [place] [address], [place] [address] Aug, [facility] [address] [id number] [address] [place] [address], [place] [address] Aug, 2014 [facility] [address] [id number] [address] [place] [address], [place] [address] Jul, [facility] [address] [id number] [address] [place] [address], [place] [address] Jul, [facility] [address] [id number] [address] [place] [address], [place] [address] Jul, [facility] [address] [id number] [address] [place] [address], [place] [address] Jul, [facility] [address] [id number] [address] [place] [address], [place] [address] 23 Jul, 2014 [facility] [address] [id number] [address] [place] [address], [place] [address] 23 Jul, 2014 [facility] [address] [id number] [address] [place] [address], [place] [address] 23 Jul, 2014 [facility] [address] [id number] [address] [place] [address], [place] [address] 23 Jul, 2014 [facility] [address] [id number] [address] [place] [address], [place] [address] 20 Jul, 2014 [facility] [address] [id number] [address] [place] [address], [place] [address] 20 Jul, 2014 [facility] [address] [id number] [address] [place] [address], [place] [address] 19 Jul, 2014 [facility] [address] [id number] [address] [place] [address], [place] [address] 19 Jul, 2014 [facility] [address] [id number] [address] [place] [address], [place] [address] 17 Jul, 2014 [facility] [address] [id number] [address] [place] [address], [place] [address] 17 Jul, 2014 [facility] [address] [id number] [address] [place] [address], [place] [address] 16 Jul, 2014 [facility] [address] [id number] [address] [place] [address], [place] [address] 16 Jul, 2014 [facility] [address] [id number] [address] [place] [address], [place] [address] 16 Jul, 2014 [facility] [address] [id number] [address] [place] [address] 16 Jul, 2014 [facility] [address] [id number] [address] [place] [address] 13 Jul, 2014 [facility] [address] [id number] [address] [place] [address], [place] [address] Jul, [facility] [address] [id number] [address] [place] [address], [place] [address] Jul, [facility] [address] [id number] [address] [place] [address], [place] [address] Jul, 2014 [facility] [address] [id number] [address] [place] [address], [place] [address] Jul, 2014 [facility] [address] [id number] [address] [place] [address], [place] [address] Jul, [facility] [address] [id number] [address] [place] [address], [place] [address] Jul, [facility] [address] [id number] [address] [place] [address], [place] [address] Jul, [facility] [address] [id number] [address] [place] [address], [place] [address] Jul, [facility] [address] [id number] [address] [place] [address], [place] [address] Jul, [facility] [address] [id number] [address] [place] [address], [place] [address] Jul, [facility] [address] [id number] [address] [place] [address], [place] [address] Jul, [facility] [address] [id number] [address] [place] [address], [place] [address] Jun, [facility] [address] [id number] [address] [place] [address], [place] [address] Jun, [facility] [address] [id number] [address] [place] [address], [place] [address] Jun, [facility] [address] [id number] [address] [place] [address], [place] [address] Jun, [facility] [address] [id number] [address] [place] [address], [place] [address] Jun, [facility] [address] [id number] [address] [place] [address], [place] [address] Jun, [facility] [address] [id number] [address] [place] [address], [place] [address] Jun, [facility] [address] [id number] [address] [place] [address], [place] [address] Jun, [facility] [address] [id number] [address] [place] [address], [place] [address] Jun, [facility] [address] [id number] [address] [place] [address], [place] [address] Jun, [facility] [address] [id number] [address] [place] [address], [place] [address] Jun, [facility] [address] [id number] [address] [place] [address], [place] [address] Jun, [facility] [address] [id number] [address] [place] [address], [place] [address] Jun, [facility] [address] [id number] [address] [place] [address], [place] [address] Jun, [facility] [address] [id number] [address] [place] [address], [place] [address] Jun, [facility] [address] [id number] [address] [place] [address], [place] [address] Jun, [facility] [address] [id number] [address] [place] [address], [place] [address] Jun, [facility] [address] [id number] [address] [place] [address], [place] [address] Jun, [facility] [address] [id number] [address] [place] [address], [place] [address] Jun, [facility] [address] [id number] [address] [place] [address], [place] [address] Jun, [facility] [address] [id number] [address] [place] [address], [place] [address] May, [facility] [address] [id number] [address] [place] [address], [place] [address] May, [facility] [address] [id number] [address] [place] [address], [place] [address] May, [facility] [address] [id number] [address] [place] [address], [place] [address] May, [facility] [address] [id number] [address] [place] [address], [place] [address] May, [facility] [address] [id number] [address] [place] [address], [place] [address] May, [facility] [address] [id number] [address] [place] [address], [place] [address] May, [facility] [address] [id number] [address] [place] [address], [place] [address] May, [facility] [address] [id number] [address] [place] [address], [place] [address] May, [facility] [address] [id number] [address] [place] [address], [place] [address] May, [facility] [address] [id number] [address] [place] [address], [place] [address] May, [facility] [address] [id number] [address] [place] [address], [place] [address] 18 May, 2014 [facility] [address] [id number] [address] [place] [address], [place] [address] 18 May, 2014 [facility] [address] [id number] [address] [place] [address], [place] [address] 17 May, 2014 [facility] [address] [id number] [address] [place] [address], [place] [address] 16 May, 2014 [facility] [address] [id number] [address] [place] [address], [place] [address] 16 May, 2014 [facility] [address] [id number] [address] [place] [address], [place] [address] 15 May, 2014 [facility] [address] [id number] [address] [place] [address], [place] [address] 15 May, 2014 [facility] [address] [id number] [address] [place] [address], [place] [address] May, [facility] [address] [id number] [address] [place] [address], [place] [address] May, [facility] [address] [id number] [address] [place] [address], [place] [address] May, [facility] [address] [id number] [address] [place] [address], [place] [address] May, [facility] [address] [id number] [address] [place] [address], [place] [address] May, [facility] [address] [id number] [address] [place] [address], [place] [address] May, [facility] [address] [id number] [address] [place] [address], [place] [address] May, [facility] [address] [id number] [address] [place] [address], [place] [address] May, [facility] [address] [id number] [address] [place] [address], [place] [address] May, [facility] [address] [id number] [address] [place] [address], [place] [address] May, [facility] [address] [id number] [address] [place] [address], [place] [address] May, [facility] [address] [id number] [address] [place] [address], [place] [address] May, [facility] [address] [id number] [address] [place] [address], [place] [address] May, [facility] [address] [id number] [address] [place] [address], [place] [address] May, [facility] [address] [id number] [address] [place] [address], [place] [address] May, [facility] [address] [id number] [address] [place] [address], [place] [address] May, [facility] [address] [id number] [address] [place] [address], [place] [address] Apr, [facility] [address] [id number] [address] [place] [address], [place] [address] Apr, [facility] [address] [id number] [address] [place] [address], [place] [address] Apr, [facility] [address] [id number] [address] [place] [address], [place] [address] Apr, [facility] [address] [id number] [address] [place] [address], [place] [address] Apr, [facility] [address] [id number] [address] [place] [address], [place] [address] Apr, [facility] [address] [id number] [address] [place] [address], [place] [address] Apr, [facility] [address] [id number] [address] [place] [address], [place] [address] Apr, [facility] [address] [id number] [address] [place] [address], [place] [address] Apr, [facility] [address] [id number] [address] [place] [address], [place] [address] Apr, [facility] [address] [id number] [address] [place] [address], [place] [address] Mar, [facility] [address] [id number] [address] [place] [address], [place] [address] Mar, [facility] [address] [id number] [address] [place] [address] [address] Mar, [facility] [address] [id number] [address] [place] [address], [place] [address] 31 Mar, 2013 [facility] [address] [id number] [address] [place] [address], [place] [address] Mar, [facility] [address] [id number] [address] [place] [address], [place] [address] 30 Mar, 2014 [facility] [address] [id number] [address] [place] [address], [place] [address] Mar, [facility] [address] [id number] [address] [place] [address], [place] [address] Mar, [facility] [address] [id number] [address] [place] [address], [place] [address] Mar, [facility] [address] [id number] [address] [place] [address], [place] [address] Mar, [facility] [address] [id number] [address] [place] [address] Mar, [facility] [address] [id number] [address] [place] [address] Mar, [facility] [address] [id number] [address] [place] [address] Mar, [facility] [address] [id number] [address] [place] [id number] Mar, 2013 [facility] [address] [id number] [address] [place] [id number] Mar, 2013 [facility] [address] [id number] [address] [place] [id number] Mar, [facility] [address] [id number] [address] [place] [id number] Mar, [facility] [address] [id number] [address] [place] [id number] Mar, 2013 [facility] [address] [id number] [address] [place] [address], [place] [id number] 02 Mar, 2013 [facility] [address] [id number] [address] [place] [address], [place] [id number] 02 Mar, 2013 [facility] [address] [id number] [address] [place] [address], [place] [id number] 05 Sep, 2013 [facility] [address] [id number] [address] [place] [address], [place] [id number] 05 Sep, 2013 [facility] [address] [id number] [address] [place] [address], [place] [id number] 04 Sep, 2013 [facility] [address] [id number] [address] [place] [address], [place] [id number] 04 Sep, 2013 [facility] [address] [id number] [address] [place] [address], [place] [id number] 03 Feb, 2013 [facility] [address] [id number] [address] [place] [address], [place] [id number] 03 Feb, 2013 [facility] [address] [id number] [address] [place] [address], [place] [id number] 02 Feb, 2013 [facility] [address] [id number] [address] [place] [address], [place] [address] Feb, 2013 [facility] [address] [id number] [address] [place] [address], [place] [id number] 02 Feb, 2013 [facility] [address] [id number] [address] [place] [address], [place] [address] Feb, 2013 [facility] [address] [id number] [address] [place] [address], [place] [id number] Jan, [facility] [address] [id number] [address] [place] [address], [place] [address] Jan, [facility] [address] [id number] [address] [place] [address], [place] [id number] Jan, [facility] [address] [id number] [address] [place] [address], [place] [id number] Jan, [facility] [address] [id number] [facility] [place] [id number] Jan, [facility] [address] [id number] [address] [place] [address], [place] [address] Jan, [facility] [address] [id number] [address] [place] [address], [place] [id number] Jan, [facility] [address] [id number] [address] [place] [address], [place] [address] Jan, [facility] [address] [id number] [address] [place] [address], [place] [address] Jan, [facility] [address] [id number] [address] [place] [address], [place] [address] Jan, [facility] [address] [id number] [address] [place] [address], [place] [id number] Jan, [facility] [address] [id number] [address] [place] [address], [place] [address] Jan, [facility] [address] [id number] [address] [place] [address], [place] [id number] Dec, [facility] [address] [id number] [address] [place] [address], [place] [address] Dec, [facility] [address] [id number] [address] [place] [address], [place] [id number] Dec, [facility] [address] [id number] [address] [place] [address], [place] [id number] Dec, [facility] [address] [id number] [address] [place] [address], [place] [address] Dec, [facility] [address] [id number] [address] [place] [address], [place] [address] Dec, [facility] [address] [id number] [address] [place] [address], [place] [id number] Dec, [facility] [address] [id number] [address] [place] [address], [place] [id number] Dec, [facility] [address] [id number] [facility] [address] Dec, [facility] [address] [id number] [address] [place] [address], [place] [address] Dec, [facility] [address] [id number] [address] [place] [address], [place] [address] Dec, [facility] [address] [id number] [address] [place] [address], [place] [address] Dec, [facility] [address] [id number] [address] [place] [address], [place] [address] Nov, [facility] [address] [id number] [address] [place] [address], [place] [address] Nov, [facility] [address] [id number] [address] [place] [address], [place] [address] Nov, [facility] [address] [id number] [address] [place] [address], [place] [address] Nov, [facility] [address] [id number] [address] [place] [address], [place] [address] Nov, [facility] [address] [id number] [address] [place] [address], [place] [address] Nov, [facility] [address] [id number] [address] [place] [address], [place] [address] Nov, [facility] [address] [id number] [address] [place] [address], [place] [address] Nov, [facility] [address] [id number] [address] [place] [address], [place] [address] Nov, [facility] [address] [id number] [address] [place] [address], [place] [address] Nov, [facility] [address] [id number] [address] [place] [address], [place] [address] Nov, [facility] [address] [id number] [facility] [place] [address] Nov, [facility] [address] [id number] [address] [place] [address], [place] [address] Nov, [facility] [address] [id number] [address] [place] [address], [place] [address] Nov, [facility] [address] [id number] [address] [place] [address], [place] [address] October, [facility] [address] [id number] [address] [place] [address], [place] [address] October, [facility] [address] [id number] [address] [place] [address], [place] [address] October, [facility] [address] [id number] [address] [place] [address], [place] [address] October, [facility] [address] [id number] [address] [place] [address], [place] [address] October, [facility] [address] [id number] [address] [place] [address], [place] [address] October, [facility] [address] [id number] [address] [place] [address], [place] [address] October, [facility] [address] [id number] [address] [place] [address], [place] [address] October, [facility] [address] [id number] [address] [place] [address], [place] [address] October, [facility] [address] [id number] [address] [place] [address], [place] [address] October, [facility] [address] [id number] [address] [place] [address], [place] [address] October, [facility] [address] [id number] [address] [place] [address], [place] [address] October, [facility] [address] [id number] [address] [place] [address], [place] [address] Sep, [facility] [address] [id number] [facility] [place] [address] Sep, [facility] [address] [id number] [address] [place] [address], [place] [address] Sep, [facility] [address] [id number] [facility] [place] [address] Sep, [facility] [address] [id number] [address] [place] [address], [place] [address] Sep, [facility] [address] [id number] [address] [place] [address], [place] [address] Sep, [facility] [address] [id number] [address] [place] [address], [place] [address] Aug, [facility] [address] [id number] [address] [place] [address], [place] [address] Aug, [facility] [address] [id number] [address] [place] [address], [place] [address] Aug, [facility] [address] [id number] [address] [place] [address], [place] [address] Aug, [facility] [address] [id number] [address] [place] [address], [place] [address] Aug, [facility] [address] [id number] [address] [place] [address], [place] [address] Aug, [facility] [address] [id number] [address] [place] [address], [place] [address] Jul, [facility] [address] [id number] [address] [place] [address], [place] [address] Jul, [facility] [address] [id number] [address] [place] [address], [place] [address] Jul, [facility] [address] [id number] [address] [place] [address], [place] [address] Jul, [facility] [address] [id number] [address] [place] [address], [place] [address] 13 Jul, 2013 [facility] [address] [id number] [address] [place] [address], [place] [address] Jul, [facility] [address] [id number] [address] [place] [address], [place] [address] Jul, [facility] [address] [id number] [address] [place] [address], [place] [address] Jul, [facility] [address] [id number] [address] [place] [address], [place] [address] Jul, [facility] [address] [id number] [address] [place] [address], [place] [address] Jul, [facility] [address] [id number] [address] [place] [address], [place] [address] Jun, [facility] [address] [id number] [address] [place] [address], [place] [address] Jun, [facility] [address] [id number] [address] [place] [address], [place] [address] Jun, [facility] [address] [id number] [address] [place] [address], [place] [address] Jun, [facility] [address] [id number] [address] [place] [address], [place] [address] Jun, [facility] [address] [id number] [address] [place] [address], [place] [address] Jun, [facility] [address] [id number] [address] [place] [address], [place] [address] Jun, [facility] [address] [id number] [address] [place] [address], [place] [address] Jun, [facility] [address] [id number] [address] [place] [address], [place] [address] May, [facility] [address] [id number] [address] [place] [address], [place] [address] May, [facility] [address] [id number] [address] [place] [address], [place] [address] May, [facility] [address] [id number] [address] [place] [address], [place] [address] May, [facility] [address] [id number] [address] [place] [address], [place] [address] May, [facility] [address] [id number] [address] [place] [address], [place] [address] May, [facility] [address] [id number] [address] [place] [address], [place] [address] May, [facility] [address] [id number] [address] [place] [address], [place] [address] May, [facility] [address] [id number] [address] [place] [address], [place] [address] Apr, [facility] [address] [id number] [address] [place] [address] Apr, [facility] [address] [id number] [address] [place] [address], [place] [address] Apr, [facility] [address] [id number] [address] [place] [address] Apr, [facility] [address] [id number] [address] [place] [address] Apr, [facility] [address] [id number] [address] [place] [address] Apr, [facility] [address] [id number] [address] [place] [address], [place] [address] Mar, [facility] [address] [id number] [address] [place] [address] Mar, [facility] [address] [id number] [address] [place] [address], [place] [address] Mar, [facility] [address] [id number] [address] [place] [address], [place] [address] Mar, [facility] [address] [id number] [address] [place] [address], [place] [address] Mar, [facility] [address] [id number] [address] [place] [address], [place] [address] Mar, [facility] [address] [id number] [address] [place] [address], [place] [address] Mar, [facility] [address] [id number] [address] [place] [address], [place] [address] 30 Feb, 2012 [facility] [address] [id number] [address] [place] [address], [place] [address] 30 Feb, 2013 [facility] [address] [id number] [address] [place] [address], [place] [address] 27 Feb, 2013 [facility] [address] [id number] [address] [place] [address], [place] [address] Feb, 2012 [facility] [address] [id number] [address] [place] [address], [place] [address] Feb, [facility] [address] [id number] [address] [place] [address], [place] [address] Feb, [facility] [address] [id number] [address] [place] [address], [place] [address] Jan, [facility] [address] [id number] [address] [place] [address], [place] [address] Jan, [facility] [address] [id number] [address] [place] [address], [place] [address] Jan, [facility] [address] [id number] [address] [place] [address], [place] [address] Jan, [facility] [address] [id number] [address] [place] [address], [place] [address] Jan, [facility] [address] [id number] [address] [place] [address], [place] [address] Jan, [facility] [address] [id number] [address] [place] [address], [place] [address] Jan, [facility] [address] [id number] [address] [place] [address], [place] [address] Jan, [facility] [address] [id number] [address] [place] [address], [place] [address] Jan, [facility] [address] [id number] [address] [place] [address], [place] [address] Dec, [facility] [address] [id number] [address] [place] [address], [place] [address] Dec, [facility] [address] [id number] [address] [place] [address], [place] [address] Dec, [facility] [address] [id number] [address] [place] [address], [place] [address] Dec, [facility] [address] [id number] [address] [place] [address], [place] [address] Dec, [facility] [address] [id number] [address] [place] [address], [place] [address] Dec, [facility] [address] [id number] [address] [place] [address], [place] [address] Dec, [facility] [address] [id number] [address] [place] [address], [place] [address] Dec, [facility] [address] [id number] [address] [place] [address], [place] [address] Dec, [facility] [address] [id number] [address] [place] [address], [place] [address] Dec, [facility] [address] [id number] [address] [place] [address], [place] [address] Dec, [facility] [address] [id number] [address] [place] [address], [place] [address] Dec, [facility] [address] [id number] [address] [place] [address], [place] [address] Dec, [facility] [address] [id number] [address] [place] [address], [place] [address] Nov, [facility] [address] [id number] [address] [place] [address], [place] [address] Nov, [facility] [address] [id number] [address] [place] [address], [place] [address] Nov, [facility] [address] [id number] [address] [place] [address], [place] [address] Nov, [facility] [address] [id number] [address] [place] [address], [place] [address] October, [facility] [address] [id number] [address] [place] [address], [place] [address] October, [facility] [address] [id number] [address] [place] [address], [place] [address] October, [facility] [address] [id number] [address] [place] [address], [place] [address] October, [facility] [address] [id number] [address] [place] [address], [place] [address] October, [facility] [address] [id number] [address] [place] [address], [place] [address] October, [facility] [address] [id number] [address] [place] [address], [place] [address] Sep, [facility] [address] [id number] [address] [place] [address], [place] [address] Sep, [facility] [address] [id number] [address] [place] [address], [place] [address] Sep, [facility] [address] [id number] [address] [place] [address], [place] [address] Sep, [facility] [address] [id number] [address] [place] [address], [place] [address] Sep, [facility] [address] [id number] [facility] [place] [address] 16 Sep, 2012 [facility] [address] [id number] [address] [place] [address], [place] [address] 12 Sep, 2012 [facility] [address] [id number] [address] [place] [address], [place] [address] Sep, [facility] [address] [id number] [address] [place] [address], [place] [address] Sep, [facility] [address] [id number] [address] [place] [address], [place] [address] Sep, [facility] [address] [id number] [address] [place] [address], [place] [address] Sep, [facility] [address] [id number] [address] [place] [address], [place] [address] Aug, [facility] [address] [id number] [address] [place] [address], [place] [address] 25 Aug, 2012 [facility] [address] [id number] [address] [place] [address], [place] [address] 25 Aug, 2012 [facility] [address] [id number] [address] [place] [address], [place] [address] 21 Aug, 2012 [facility] [address] [id number] [address] [place] [address], [place] [address] 19 Aug, 2012 [facility] [address] [id number] [address] [place] [address], [place] [address] 18 Aug, 2012 [facility] [address] [id number] [address] [place] [address], [place] [address] 17 Aug, 2012 [facility] [address] [id number] [address] [place] [address], [place] [address] 15 Aug, 2012 [facility] [address] [id number] [address] [place] [address], [place] [address] 15 Aug, 2012 [facility] [address] [id number] [address] [place] [address], [place] [address] Aug, [facility] [address] [id number] [address] [place] [address], [place] [address] Aug, [facility] [address] [id number] [address] [place] [address], [place] [address] Aug, [facility] [address] [id number] [address] [place] [address], [place] [address] Jul, [facility] [address] [id number] [address] [place] [address], [place] [address] Jul, [facility] [address] [id number] [address] [place] [address], [place] [address] Jul, [facility] [address] [id number] [address] [place] [address], [place] [address] Jul, [facility] [address] [id number] [address] [place] [address], [place] [address] Jul, [facility] [address] [id number] [address] [place] [address], [place] [address] Jul, [facility] [address] [id number] [address] [place] [address], [place] [address] Jul, [facility] [address] [id number] [address] [place] [address], [place] [address] Jul, [facility] [address] [id number] [address] [place] [address], [place] [address] Jul, [facility] [address] [id number] [address] [place] [address], [place] [address] Jul, [facility] [address] [id number] [address] [place] [address], [place] [address] May, [facility] [address] [id number] [place] [id number] May, [facility] [address] [id number] [address] [place] [address], [place] [address] May, [facility] [address] [id number] [address] [place] [address] May, [facility] [address] [facility] [id number] [address] [place] [address] May, [facility] [address] [facility] [id number] [address] [place] [address] Apr, [facility] [address] [id number] [place] [id number] Apr, [facility] [address] [facility] [id number] [address] [place] [address] Apr, [facility] [address] [facility] [id number] [address] [place] [address] Mar, [facility] [place] [address] [id number] [place] [id number] Mar, [facility] [address] [facility] [id number] [address] [place] [address] Mar, [facility] [place] [address] [id number] [place] [id number] Feb, [facility] [address] [facility] [id number] [address] [place] [address] Feb, [facility] [address] [facility] [id number] [address] [place] [id number] Feb, [facility] [address] [id number] [place] [id number] Feb, [facility] [address] [id number] [place] [id number] Feb, [facility] [address] [id number] [place] [id number] Jan, [facility] [address] [id number] [address] [place] [address], [place] [id number] Jan, [facility] [address] [id number] [place] [id number] Jan, [facility] [address] [id number] [place] [id number] Jan, [facility] [address] [id number] [place] [id number] Jan, [facility] [address] [facility] [id number] [address] [place] [address], [place] [phone] Jan, [facility] [address] [facility] [id number] [address] [place] [address], [place] [id number] Jan, [facility] [address] [facility] [id number] [address] [place] [address], [place] [id number] Aug, [facility] [address] [id number] [place] [id number] Aug, [facility] [address] [facility] [id number] [address] [place] [address], [place] [id number] Jul, [facility] [address] [facility] [id number] [address] [place] [address], [place] [phone] Jul, [facility] [address] [facility] [id number] [address] [place] [address], [place] [id number] Jul, [facility] [address] [id number] [place] [id number] Jul, [facility] [address] [facility] [id number] [address] [place] [address], [place] [id number] Jul, [facility] [address] [id number] [place] [id number] Jul, [facility] [address] [facility] [id number] [address] [place] [address], [place] [phone] Jul, [facility] [address] [id number] [place] [id number] Jul, [facility] [address] [id number] [place] [id number] Jul, [facility] [address] [id number] [place] [id number] Jul, [facility] [address] [facility] [id number] [address] [place] [address], [place] [address] May, [facility] [address] [id number] [address] [place] [id number] May, [facility] [address] [id number] [address] [place] [id number] May, [facility] [address] [id number] [address] [place] [id number] Apr, [facility] [address] [id number] [address] [place] [phone] Jan, [facility] [address] [id number] [address] [place] [phone] Jan, [facility] [address] [id number] [address] [place] [id number] Dec, [facility] [address] [id number] [address] [place] [phone] Dec, [facility] [address] [id number] [address] [place] [phone] May, [facility] [address] [id number] [address] [place] [id number] Mar, [facility] [address] [id number] [address] [place] [id number] Mar, [facility] [address] [id number] [address] [place] [id number] Jan, IMMUNIZATIONS No Known Immunizations SOCIAL HISTORY [...]
--- OUTSIDE RECORDS SUMMARY | 2020-01-28 12:41 | XMS REPORT ---
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 Active 196510553 Problem History of venous thromboembolism V12.51 Active 879977073 Problem Cellulitis of unspecified part of limb L03.119 Active 349975374 Problem Gastroesophageal reflux disease without esophagitis K21.9 Active 822125047 Problem History of pulmonary embolism Z86.711 Active 155971812 Problem Pseudotumor cerebri G93.2 Active 70455559 Problem History of DVT (deep vein thrombosis) Z86.718 Active 133974315 ALLERGIES No Information ENCOUNTERS Encounter Location Date Diagnosis [place] [id number] [facility] [id number] [address] [place] [address] Apr, half-way (current) use of 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 Z79.01 [facility] [address] [facility] [id number] [address] [place] [address] Apr, half-way 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.01 [facility] [address] [facility] [id number] [address] [place] [address] Apr, Cellulitis of unspecified pa rt of limb L03.119 ; Allergic contact dermatitis due to adhesives L23.1 and Chronic pain syndrome G89.4 [facility] [address] [facility] [id number] [address] [place] [address] Apr, [place] [address] [address] [place] [id number] [address] [place] [address] Apr, 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 ; Cellulitis of unspecified part of limb L03.119 ; Chronic pain syndrome G89.4 and Anxiety F41.9 [facility] [address] [place] [id number] [address] [place] [address] 16 Apr, 2015 [facility] [address] [place] [id number] [place] [address] Apr, [place] [address] [place] [id number] [place] [address] Mar, [place] [address] [address] Mar, [place] [address] [address] Mar, Sore throat J02.9 ; Gastroes ophageal reflux disease without esophagitis K21.9 ; Pseudotumor cerebri G93.2 ; Chronic pain syndrome G89.4 ; Choriocarcinoma C58 ; History of pulmonary embolism Z86.711 ; History of DVT (deep vein thrombosis) Z86.718 ; Anxiety F41.9 and Tachycardia R00.0 [place] [address] [address] Feb, Anxiety 300.00 and Chronic p ain 338.29 [place] [address] [address] [place] [id number] [address] [place] [address] Feb, [place] [address] [place] [id number] [address] [place] [address] Feb, [place] [address] [address] Jan, 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 therapy V58.61 and Dysuria 788.1 [place] [address] [place] [id number] [place] [address] Jan, Dysuria 788.1 [facility] [address] [place] [id number] [address] [place] [address] Jan, Anxiety 300.00 and Chronic p ain 338.29 [facility] [address] [place] [id number] [place] [address] Jan, [facility] [address] [address] Jan, [facility] [address] [address] Jan, [place] [address] [address] Dec, Weakness 780.79 [place] [address] [address] Dec, half-way 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 therapy V58.61 [place] [address] [address] Dec, Palpitations 785.1 ; Tremor 781.0 ; Weakness 780.79 ; half-way current use of anticoagulant therapy V58.61 and Yeast vaginitis 112.1 [place] [address] [place] [id number] [address] [place] [address] Dec, [place] [address] [address] Dec, Cervicalgia 723.1 ; Tachycar yoseph 785.0 ; Pseudotumor cerebri 348.2 and History of venous thromboembolism V12.51 [place] [address] [address] Nov, [place] [address] [address] Nov, [place] [address] [address] Nov, Tachycardia 785.0 ; Pseudotu mor cerebri 348.2 ; Anxiety 300.00 and History of venous thromboembolism V12.51 [facility] [address] [id number] [address] [place] [address] Nov, [facility] [address] [id number] [address] [place] [address] 18 Nov, 2014 [facility] [address] [id number] [address] [place] [address] Nov, [facility] [address] [id number] [address] [place] [address] Nov, [facility] [address] [facility] [id number] [address] [place] [address] Nov, [facility] [address] [facility] [id number] [address] [place] [address] Nov, [facility] [address] [facility] [id number] [address] [place] [address] Nov, [facility] [address] [facility] [id number] [address] [place] [address] October, [facility] [address] [facility] [id number] [address] [place] [address] October, [facility] [address] [place] [id number] [address] [place] [address] October, Pain in thoracic spine 724.1 and Tachycardia 785.0 [facility] [address] [id number] [address] [place] [address] October, [facility] [address] [id number] [address] [place] [address] October, [facility] [address] [facility] [id number] [address] [place] [address] 14 Sep, 2014 [facility] [address] [facility] [id number] [address] [place] [address] Sep, [facility] [address] [id number] [facility] [place] [address] Aug, [facility] [address] [id number] [address] [place] [address], [place] [address] Aug, [facility] [address] [id number] [address] [place] [address], [place] [address] Aug, [facility] [address] [id number] [address] [place] [address], [place] [address] Aug, [facility] [address] [id number] [address] [place] [address], [place] [address] Aug, [facility] [address] [id number] [address] [place] [address], [place] [address] Aug, [facility] [address] [id number] [address] [place] [address], [place] [address] Aug, [facility] [address] [id number] [address] [place] [address], [place] [address] Aug, [facility] [address] [id number] [address] [place] [address], [place] [address] Aug, [facility] [address] [id number] [address] [place] [address], [place] [address] Aug, [facility] [address] [id number] [address] [place] [address], [place] [address] Aug, [facility] [address] [id number] [address] [place] [address], [place] [address] Aug, 2014 [facility] [address] [id number] [address] [place] [address], [place] [address] Jul, [facility] [address] [id number] [address] [place] [address], [place] [address] Jul, [facility] [address] [id number] [address] [place] [address], [place] [address] Jul, [facility] [address] [id number] [address] [place] [address], [place] [address] Jul, [facility] [address] [id number] [address] [place] [address], [place] [address] 23 Jul, 2014 [facility] [address] [id number] [address] [place] [address], [place] [address] 23 Jul, 2014 [facility] [address] [id number] [address] [place] [address], [place] [address] 23 Jul, 2014 [facility] [address] [id number] [address] [place] [address], [place] [address] 23 Jul, 2014 [facility] [address] [id number] [address] [place] [address], [place] [address] 20 Jul, 2014 [facility] [address] [id number] [address] [place] [address], [place] [address] 20 Jul, 2014 [facility] [address] [id number] [address] [place] [address], [place] [address] 19 Jul, 2014 [facility] [address] [id number] [address] [place] [address], [place] [address] 19 Jul, 2014 [facility] [address] [id number] [address] [place] [address], [place] [address] 17 Jul, 2014 [facility] [address] [id number] [address] [place] [address], [place] [address] 17 Jul, 2014 [facility] [address] [id number] [address] [place] [address], [place] [address] 16 Jul, 2014 [facility] [address] [id number] [address] [place] [address], [place] [address] 16 Jul, 2014 [facility] [address] [id number] [address] [place] [address], [place] [address] 16 Jul, 2014 [facility] [address] [id number] [address] [place] [address] 16 Jul, 2014 [facility] [address] [id number] [address] [place] [address] 13 Jul, 2014 [facility] [address] [id number] [address] [place] [address], [place] [address] Jul, [facility] [address] [id number] [address] [place] [address], [place] [address] Jul, [facility] [address] [id number] [address] [place] [address], [place] [address] Jul, 2014 [facility] [address] [id number] [address] [place] [address], [place] [address] Jul, 2014 [facility] [address] [id number] [address] [place] [address], [place] [address] Jul, [facility] [address] [id number] [address] [place] [address], [place] [address] Jul, [facility] [address] [id number] [address] [place] [address], [place] [address] Jul, [facility] [address] [id number] [address] [place] [address], [place] [address] Jul, [facility] [address] [id number] [address] [place] [address], [place] [address] Jul, [facility] [address] [id number] [address] [place] [address], [place] [address] Jul, [facility] [address] [id number] [address] [place] [address], [place] [address] Jul, [facility] [address] [id number] [address] [place] [address], [place] [address] Jun, [facility] [address] [id number] [address] [place] [address], [place] [address] Jun, [facility] [address] [id number] [address] [place] [address], [place] [address] Jun, [facility] [address] [id number] [address] [place] [address], [place] [address] Jun, [facility] [address] [id number] [address] [place] [address], [place] [address] Jun, [facility] [address] [id number] [address] [place] [address], [place] [address] Jun, [facility] [address] [id number] [address] [place] [address], [place] [address] Jun, [facility] [address] [id number] [address] [place] [address], [place] [address] Jun, [facility] [address] [id number] [address] [place] [address], [place] [address] Jun, [facility] [address] [id number] [address] [place] [address], [place] [address] Jun, [facility] [address] [id number] [address] [place] [address], [place] [address] Jun, [facility] [address] [id number] [address] [place] [address], [place] [address] Jun, [facility] [address] [id number] [address] [place] [address], [place] [address] Jun, [facility] [address] [id number] [address] [place] [address], [place] [address] Jun, [facility] [address] [id number] [address] [place] [address], [place] [address] Jun, [facility] [address] [id number] [address] [place] [address], [place] [address] Jun, [facility] [address] [id number] [address] [place] [address], [place] [address] Jun, [facility] [address] [id number] [address] [place] [address], [place] [address] Jun, [facility] [address] [id number] [address] [place] [address], [place] [address] Jun, [facility] [address] [id number] [address] [place] [address], [place] [address] Jun, [facility] [address] [id number] [address] [place] [address], [place] [address] May, [facility] [address] [id number] [address] [place] [address], [place] [address] May, [facility] [address] [id number] [address] [place] [address], [place] [address] May, [facility] [address] [id number] [address] [place] [address], [place] [address] May, [facility] [address] [id number] [address] [place] [address], [place] [address] May, [facility] [address] [id number] [address] [place] [address], [place] [address] May, [facility] [address] [id number] [address] [place] [address], [place] [address] May, [facility] [address] [id number] [address] [place] [address], [place] [address] May, [facility] [address] [id number] [address] [place] [address], [place] [address] May, [facility] [address] [id number] [address] [place] [address], [place] [address] May, [facility] [address] [id number] [address] [place] [address], [place] [address] May, [facility] [address] [id number] [address] [place] [address], [place] [address] 18 May, 2014 [facility] [address] [id number] [address] [place] [address], [place] [address] 18 May, 2014 [facility] [address] [id number] [address] [place] [address], [place] [address] 17 May, 2014 [facility] [address] [id number] [address] [place] [address], [place] [address] 16 May, 2014 [facility] [address] [id number] [address] [place] [address], [place] [address] 16 May, 2014 [facility] [address] [id number] [address] [place] [address], [place] [address] 15 May, 2014 [facility] [address] [id number] [address] [place] [address], [place] [address] 15 May, 2014 [facility] [address] [id number] [address] [place] [address], [place] [address] May, [facility] [address] [id number] [address] [place] [address], [place] [address] May, [facility] [address] [id number] [address] [place] [address], [place] [address] May, [facility] [address] [id number] [address] [place] [address], [place] [address] May, [facility] [address] [id number] [address] [place] [address], [place] [address] May, [facility] [address] [id number] [address] [place] [address], [place] [address] May, [facility] [address] [id number] [address] [place] [address], [place] [address] May, [facility] [address] [id number] [address] [place] [address], [place] [address] May, [facility] [address] [id number] [address] [place] [address], [place] [address] May, [facility] [address] [id number] [address] [place] [address], [place] [address] May, [facility] [address] [id number] [address] [place] [address], [place] [address] May, [facility] [address] [id number] [address] [place] [address], [place] [address] May, [facility] [address] [id number] [address] [place] [address], [place] [address] May, [facility] [address] [id number] [address] [place] [address], [place] [address] May, [facility] [address] [id number] [address] [place] [address], [place] [address] May, [facility] [address] [id number] [address] [place] [address], [place] [address] May, [facility] [address] [id number] [address] [place] [address], [place] [address] Apr, [facility] [address] [id number] [address] [place] [address], [place] [address] Apr, [facility] [address] [id number] [address] [place] [address], [place] [address] Apr, [facility] [address] [id number] [address] [place] [address], [place] [address] Apr, [facility] [address] [id number] [address] [place] [address], [place] [address] Apr, [facility] [address] [id number] [address] [place] [address], [place] [address] Apr, [facility] [address] [id number] [address] [place] [address], [place] [address] Apr, [facility] [address] [id number] [address] [place] [address], [place] [address] Apr, [facility] [address] [id number] [address] [place] [address], [place] [address] Apr, [facility] [address] [id number] [address] [place] [address], [place] [address] Apr, [facility] [address] [id number] [address] [place] [address], [place] [address] Mar, [facility] [address] [id number] [address] [place] [address], [place] [address] Mar, [facility] [address] [id number] [address] [place] [address] [address] Mar, [facility] [address] [id number] [address] [place] [address], [place] [address] 31 Mar, 2013 [facility] [address] [id number] [address] [place] [address], [place] [address] Mar, [facility] [address] [id number] [address] [place] [address], [place] [address] 30 Mar, 2014 [facility] [address] [id number] [address] [place] [address], [place] [address] Mar, [facility] [address] [id number] [address] [place] [address], [place] [address] Mar, [facility] [address] [id number] [address] [place] [address], [place] [address] Mar, [facility] [address] [id number] [address] [place] [address], [place] [address] Mar, [facility] [address] [id number] [address] [place] [id number] Mar, [facility] [address] [id number] [address] [place] [address] Mar, [facility] [address] [id number] [address] [place] [id number] Mar, [facility] [address] [id number] [address] [place] [id number] Mar, 2013 [facility] [address] [id number] [address] [place] [id number] Mar, 2013 [facility] [address] [id number] [address] [place] [address] Mar, [facility] [address] [id number] [address] [place] [id number] Mar, [facility] [address] [id number] [address] [place] [address] Mar, 2013 [facility] [address] [id number] [address] [place] [address], [place] [address] 02 Mar, 2013 [facility] [address] [id number] [address] [place] [address], [place] [address] 02 Mar, 2013 [facility] [address] [id number] [address] [place] [address], [place] [address] 05 Sep, 2013 [facility] [address] [id number] [address] [place] [address], [place] [address] 05 Sep, 2013 [facility] [address] [id number] [address] [place] [address], [place] [address] 04 Sep, 2013 [facility] [address] [id number] [address] [place] [address], [place] [address] 04 Sep, 2013 [facility] [address] [id number] [address] [place] [address], [place] [address] 03 Feb, 2013 [facility] [address] [id number] [address] [place] [address], [place] [address] 03 Feb, 2013 [facility] [address] [id number] [address] [place] [address], [place] [address] 02 Feb, 2013 [facility] [address] [id number] [address] [place] [address], [place] [address] Feb, 2013 [facility] [address] [id number] [address] [place] [address], [place] [address] 02 Feb, 2013 [facility] [address] [id number] [address] [place] [address], [place] [address] Feb, 2013 [facility] [address] [id number] [address] [place] [address], [place] [address] Jan, [facility] [address] [id number] [address] [place] [address], [place] [address] Jan, [facility] [address] [id number] [address] [place] [address], [place] [address] Jan, [facility] [address] [id number] [address] [place] [address], [place] [address] Jan, [facility] [address] [id number] [facility] [place] [address] Jan, [facility] [address] [id number] [address] [place] [address], [place] [address] Jan, [facility] [address] [id number] [address] [place] [address], [place] [address] Jan, [facility] [address] [id number] [address] [place] [address], [place] [address] Jan, [facility] [address] [id number] [address] [place] [address], [place] [address] Jan, [facility] [address] [id number] [address] [place] [address], [place] [address] Jan, [facility] [address] [id number] [address] [place] [address], [place] [address] Jan, [facility] [address] [id number] [address] [place] [address], [place] [address] Jan, [facility] [address] [id number] [address] [place] [address], [place] [address] Dec, [facility] [address] [id number] [address] [place] [address], [place] [address] Dec, [facility] [address] [id number] [address] [place] [address], [place] [address] Dec, [facility] [address] [id number] [address] [place] [address], [place] [address] Dec, [facility] [facility] [address] [id number] [address] [place] [address], [place] [address] Dec, [facility] [address] [id number] [address] [place] [address], [place] [address] Dec, [facility] [address] [id number] [address] [place] [address], [place] [address] Dec, [facility] [address] [id number] [address] [place] [address], [place] [address] Dec, [facility] [address] [id number] [facility] [place] [address] Dec, [facility] [address] [id number] [address] [place] [address], [place] [address] Dec, [facility] [address] [id number] [address] [place] [address], [place] [address] Dec, [facility] [address] [id number] [address] [place] [address], [place] [address] Dec, [facility] [address] [id number] [address] [place] [address], [place] [address] Nov, [facility] [address] [id number] [address] [place] [address], [place] [address] Nov, [facility] [address] [id number] [address] [place] [address], [place] [address] Nov, [facility] [address] [id number] [address] [place] [address], [place] [address] Nov, [facility] [address] [id number] [address] [place] [address], [place] [address] Nov, [facility] [address] [id number] [address] [place] [address], [place] [address] Nov, [facility] [address] [id number] [address] [place] [address], [place] [address] Nov, [facility] [address] [id number] [address] [place] [address], [place] [address] Nov, [facility] [address] [id number] [address] [place] [address], [place] [address] Nov, [facility] [address] [id number] [address] [place] [address], [place] [address] Nov, [facility] [address] [id number] [address] [place] [address], [place] [address] Nov, [facility] [address] [id number] [facility] [place] [address] Nov, [facility] [address] [id number] [address] [place] [address], [place] [address] Nov, [facility] [address] [id number] [address] [place] [address], [place] [address] Nov, [facility] [address] [id number] [address] [place] [address], [place] [address] October, [facility] [address] [id number] [address] [place] [address], [place] [address] October, [facility] [address] [id number] [address] [place] [address], [place] [address] October, [facility] [address] [id number] [address] [place] [address], [place] [address] October, [facility] [address] [id number] [address] [place] [address], [place] [address] October, [facility] [address] [id number] [address] [place] [address], [place] [address] October, [facility] [address] [id number] [address] [place] [address], [place] [address] October, [facility] [address] [id number] [address] [place] [address], [place] [address] October, [facility] [address] [id number] [address] [place] [address], [place] [address] October, [facility] [address] [id number] [address] [place] [address], [place] [address] October, [facility] [address] [id number] [address] [place] [address], [place] [address] October, [facility] [address] [id number] [address] [place] [address], [place] [address] October, [facility] [address] [id number] [address] [place] [address], [place] [address] Sep, [facility] [address] [id number] [facility] [place] [address] Sep, [facility] [address] [id number] [address] [place] [address], [place] [address] Sep, [facility] [address] [id number] [facility] [place] [address] Sep, [facility] [address] [id number] [address] [place] [address], [place] [address] Sep, [facility] [address] [id number] [address] [place] [address], [place] [address] Sep, [facility] [address] [id number] [address] [place] [address], [place] [address] Aug, [facility] [address] [id number] [address] [place] [address], [place] [address] Aug, [facility] [address] [id number] [address] [place] [address], [place] [address] Aug, [facility] [address] [id number] [address] [place] [address], [place] [address] Aug, [facility] [address] [id number] [address] [place] [address], [place] [address] Aug, [facility] [address] [id number] [address] [place] [address], [place] [address] Aug, [facility] [address] [id number] [address] [place] [address], [place] [address] Jul, [facility] [address] [id number] [address] [place] [address], [place] [address] Jul, [facility] [address] [id number] [address] [place] [address], [place] [address] Jul, [facility] [address] [id number] [address] [place] [address], [place] [address] Jul, [facility] [address] [id number] [address] [place] [address], [place] [address] 13 Jul, 2013 [facility] [address] [id number] [address] [place] [address], [place] [address] Jul, [facility] [address] [id number] [address] [place] [address], [place] [address] Jul, [facility] [address] [id number] [address] [place] [address], [place] [address] Jul, [facility] [address] [id number] [address] [place] [address], [place] [address] Jul, [facility] [address] [id number] [address] [place] [address], [place] [address] Jul, [facility] [address] [id number] [address] [place] [address], [place] [address] Jun, [facility] [address] [id number] [address] [place] [address], [place] [address] Jun, [facility] [address] [id number] [address] [place] [address], [place] [address] Jun, [facility] [address] [id number] [address] [place] [address], [place] [address] Jun, [facility] [address] [id number] [address] [place] [address], [place] [address] Jun, [facility] [address] [id number] [address] [place] [address], [place] [address] Jun, [facility] [address] [id number] [address] [place] [address], [place] [address] Jun, [facility] [address] [id number] [address] [place] [address], [place] [address] Jun, [facility] [address] [id number] [address] [place] [address], [place] [address] May, [facility] [address] [id number] [address] [place] [address], [place] [address] May, [facility] [address] [id number] [address] [place] [address], [place] [address] May, [facility] [address] [id number] [address] [place] [address], [place] [address] May, [facility] [address] [id number] [address] [place] [address], [place] [address] May, [facility] [address] [id number] [address] [place] [address], [place] [address] May, [facility] [address] [id number] [address] [place] [address], [place] [address] May, [facility] [address] [id number] [address] [place] [address], [place] [address] May, [facility] [address] [id number] [address] [place] [address], [place] [address] Apr, [facility] [address] [id number] [address] [place] [address] Apr, [facility] [address] [id number] [address] [place] [address], [place] [address] Apr, [facility] [address] [id number] [address] [place] [address] Apr, [facility] [address] [id number] [address] [place] [address] Apr, [facility] [address] [id number] [address] [place] [address] Apr, [facility] [address] [id number] [address] [place] [address], [place] [address] Mar, [facility] [address] [id number] [address] [place] [address] Mar, [facility] [address] [id number] [address] [place] [address], [place] [address] Mar, [facility] [address] [id number] [address] [place] [address], [place] [address] Mar, [facility] [address] [id number] [address] [place] [address], [place] [address] Mar, [facility] [address] [id number] [address] [place] [address], [place] [address] Mar, [facility] [address] [id number] [address] [place] [address], [place] [address] Mar, [facility] [address] [id number] [address] [place] [address], [place] [address] 30 Feb, 2012 [facility] [address] [id number] [address] [place] [address], [place] [address] 30 Feb, 2013 [facility] [address] [id number] [address] [place] [address], [place] [address] 27 Feb, 2013 [facility] [address] [id number] [address] [place] [address], [place] [address] Feb, 2012 [facility] [address] [id number] [address] [place] [address], [place] [address] Feb, [facility] [address] [id number] [address] [place] [address], [place] [address] Feb, [facility] [address] [id number] [address] [place] [address], [place] [address] Jan, [facility] [address] [id number] [address] [place] [address], [place] [address] Jan, [facility] [address] [id number] [address] [place] [address], [place] [address] Jan, [facility] [address] [id number] [address] [place] [address], [place] [address] Jan, [facility] [address] [id number] [address] [place] [address], [place] [address] Jan, [facility] [address] [id number] [address] [place] [address], [place] [address] Jan, [facility] [address] [id number] [address] [place] [address], [place] [address] Jan, [facility] [address] [id number] [address] [place] [address], [place] [address] Jan, [facility] [address] [id number] [address] [place] [address], [place] [address] Jan, [facility] [address] [id number] [address] [place] [address], [place] [address] Dec, [facility] [address] [id number] [address] [place] [address], [place] [address] Dec, [facility] [address] [id number] [address] [place] [address], [place] [address] Dec, [facility] [address] [id number] [address] [place] [address], [place] [address] Dec, [facility] [address] [id number] [address] [place] [address], [place] [address] Dec, [facility] [address] [id number] [address] [place] [address], [place] [address] Dec, [facility] [address] [id number] [address] [place] [address], [place] [address] Dec, [facility] [address] [id number] [address] [place] [address], [place] [address] Dec, [facility] [address] [id number] [address] [place] [address], [place] [address] Dec, [facility] [address] [id number] [address] [place] [address], [place] [address] Dec, [facility] [address] [id number] [address] [place] [address], [place] [address] Dec, [facility] [address] [id number] [address] [place] [address], [place] [address] Dec, [facility] [address] [id number] [address] [place] [address], [place] [address] Dec, [facility] [address] [id number] [address] [place] [address], [place] [address] Nov, [facility] [address] [id number] [address] [place] [address], [place] [address] Nov, [facility] [address] [id number] [address] [place] [address], [place] [address] Nov, [facility] [address] [id number] [address] [place] [address], [place] [address] Nov, [facility] [address] [id number] [address] [place] [address], [place] [address] October, [facility] [address] [id number] [address] [place] [address], [place] [address] October, [facility] [address] [id number] [address] [place] [address], [place] [address] October, [facility] [address] [id number] [address] [place] [address], [place] [address] October, [facility] [address] [id number] [address] [place] [address], [place] [address] October, [facility] [address] [id number] [address] [place] [address], [place] [address] October, [facility] [address] [id number] [address] [place] [address], [place] [address] Sep, [facility] [address] [id number] [address] [place] [address], [place] [address] Sep, [facility] [address] [id number] [address] [place] [address], [place] [address] Sep, [facility] [address] [id number] [address] [place] [address], [place] [address] Sep, [facility] [address] [id number] [address] [place] [address], [place] [address] Sep, [facility] [address] [id number] [facility] [place] [address] 16 Sep, 2012 [facility] [address] [id number] [address] [place] [address], [place] [address] 12 Sep, 2012 [facility] [address] [id number] [address] [place] [address], [place] [address] Sep, [facility] [address] [id number] [address] [place] [address], [place] [address] Sep, [facility] [address] [id number] [address] [place] [address], [place] [address] Sep, [facility] [address] [id number] [address] [place] [address], [place] [address] Sep, [facility] [address] [id number] [address] [place] [address], [place] [address] Aug, [facility] [address] [id number] [address] [place] [address], [place] [address] 25 Aug, 2012 [facility] [address] [id number] [address] [place] [address], [place] [address] 25 Aug, 2012 [facility] [address] [id number] [address] [place] [address], [place] [address] 21 Aug, 2012 [facility] [address] [id number] [address] [place] [address], [place] [address] 19 Aug, 2012 [facility] [address] [id number] [address] [place] [address], [place] [address] 18 Aug, 2012 [facility] [address] [id number] [address] [place] [address], [place] [address] 17 Aug, 2012 [facility] [address] [id number] [address] [place] [address], [place] [address] 15 Aug, 2012 [facility] [address] [id number] [address] [place] [address], [place] [address] 15 Aug, 2012 [facility] [address] [id number] [address] [place] [address], [place] [address] Aug, [facility] [address] [id number] [address] [place] [address], [place] [address] Aug, [facility] [address] [id number] [address] [place] [address], [place] [address] Aug, [facility] [address] [id number] [address] [place] [address], [place] [address] Jul, [facility] [address] [id number] [address] [place] [address], [place] [address] Jul, [facility] [address] [id number] [address] [place] [address], [place] [address] Jul, [facility] [address] [id number] [address] [place] [address], [place] [address] Jul, [facility] [address] [id number] [address] [place] [address], [place] [address] Jul, [facility] [address] [id number] [address] [place] [address], [place] [address] Jul, [facility] [address] [id number] [address] [place] [address], [place] [address] Jul, [facility] [address] [id number] [address] [place] [address], [place] [address] Jul, [facility] [address] [id number] [address] [place] [address], [place] [address] Jul, [facility] [address] [id number] [address] [place] [address], [place] [address] Jul, [facility] [address] [id number] [address] [place] [address], [place] [address] May, [facility] [address] [id number] [id number] May, [facility] [address] [id number] [address] [place] [address], [place] [address] May, [facility] [address] [id number] [address] [place] [phone] May, [facility] [address] [facility] [id number] [address] [place] [id number] May, [facility] [address] [facility] [id number] [address] [place] [id number] Apr, [facility] [place] [address] [id number] [place] [id number] Apr, [facility] [address] [facility] [id number] [address] [place] [id number] Apr, [facility] [address] [facility] [id number] [address] [place] [phone] Mar, [facility] [place] [address] [id number] [place] [id number] Mar, [facility] [address] [facility] [id number] [address] [place] [id number] Mar, [facility] [address] [id number] [place] [id number] Feb, [facility] [address] [facility] [id number] [address] [place] [id number] Feb, [facility] [address] [facility] [id number] [address] [place] [phone] Feb, [facility] [place] [address] [id number] [place] [id number] Feb, [facility] [address] [id number] [place] [id number] Feb, [facility] [address] [id number] [place] [id number] Jan, [facility] [address] [id number] [address] [place] [address], [place] [address] Jan, [facility] [place] [address] [id number] [place] [id number] Jan, [facility] [address] [id number] [place] [id number] Jan, [facility] [place] [address] [id number] [place] [id number] Jan, [facility] [address] [facility] [id number] [address] [place] [address], [place] [address] Jan, [facility] [address] [facility] [id number] [address] [place] [address], [place] [address] Jan, [facility] [address] [facility] [id number] [address] [place] [address], [place] [address] Aug, [facility] [place] [address] [id number] [place] [id number] Aug, [facility] [address] [facility] [id number] [address] [place] [address], [place] [address] Jul, [facility] [address] [facility] [id number] [address] [place] [address], [place] [address] Jul, [facility] [address] [facility] [id number] [address] [place] [address], [place] [address] Jul, [facility] [address] [id number] [place] [id number] Jul, [facility] [address] [facility] [id number] [address] [place] [address], [place] [address] Jul, [facility] [place] [address] [id number] [place] [id number] Jul, [facility] [address] [facility] [id number] [address] [place] [address], [place] [address] Jul, [facility] [place] [address] [id number] [place] [id number] Jul, [facility] [place] [address] [id number] [place] [id number] Jul, [facility] [place] [address] [id number] [place] [id number] Jul, [facility] [address] [facility] [id number] [address] [place] [address], [place] [address] May, [facility] [address] [id number] [address] [place] [phone] May, [facility] [address] [id number] [address] [place] [phone] May, [facility] [address] [id number] [address] [place] [phone] Apr, [facility] [address] [id number] [address] [place] [id number] Jan, [facility] [address] [id number] [address] [place] [phone] Jan, [facility] [address] [id number] [address] [place] [phone] Dec, [facility] [address] [id number] [address] [place] [phone] Dec, [facility] [address] [id number] [address] [place] [phone] May, [facility] [address] [id number] [address] [place] [phone] Mar, [facility] [address] [id number] [address] [place] [phone] Mar, [facility] [address] [id number] [address] [place] [id number] Jan, IMMUNIZATIONS No Known Immunizations SOCIAL HISTORY [...]
--- OUTSIDE RECORDS SUMMARY | 2020-01-28 12:42 | XMS REPORT ---
Author Author Heydi ROBB [facility] Address [address] [place] [address] Care Team Providers Care Fur Tanner Name Role Phone CEZAR JIMI Unavailable PROBLEMS Type Condition ICD9-CM Code [id number] Code Onset Dates Condition S tatus SNOMED Code Problem Chronic pain syndrome G89.4 Active 041824812 Problem Sore throat J02.9 Active 66184540 3 Problem Choriocarcinoma C58 Active 1881 42551 Problem terminal gauger current use of anticoagulant Z79.01 Active 263727743 Problem History of venous thromboembolism V12.51 Active 618709751 Problem Cellulitis of unspecified part of limb L03.119 Active 711601176 Problem Gastroesophageal reflux disease without esophagitis K21.9 Active 675579447 Problem History of pulmonary embolism Z86.711 Active 931114355 Problem Pseudotumor cerebri G93.2 Active 30764346 Problem History of DVT (deep vein thrombosis) Z86.718 Active 509896478 ALLERGIES No Information ENCOUNTERS Encounter Location Date Diagnosis [place] [id number] [facility] [id number] [address] [place] [address] Apr, snf (current) use of 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 Z79.01 [facility] [address] [facility] [id number] [address] [place] [address] Apr, snf 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.01 [facility] [address] [facility] [id number] [address] [place] [address] Apr, Cellulitis of unspecified pa rt of limb L03.119 ; Allergic contact dermatitis due to adhesives L23.1 and Chronic pain syndrome G89.4 [facility] [address] [facility] [id number] [address] [place] [address] Apr, [place] [address] [place] [id number] [address] [place] [address] Apr, terminal gauger 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.01 ; Cellulitis of unspecified part of limb L03.119 ; Chronic pain syndrome G89.4 and Anxiety F41.9 [facility] [address] [place] [id number] [address] [place] [address] 16 Apr, 2015 [facility] [address] [place] [id number] [place] [address] Apr, [place] [address] [place] [id number] [place] [address] Mar, [place] [address] [address] Mar, [place] [address] [address] Mar, Sore throat J02.9 ; Gastroes ophageal reflux disease without esophagitis K21.9 ; Pseudotumor cerebri G93.2 ; Chronic pain syndrome G89.4 ; Choriocarcinoma C58 ; History of pulmonary embolism Z86.711 ; History of DVT (deep vein thrombosis) Z86.718 ; Anxiety F41.9 and Tachycardia R00.0 [place] [address] [address] Feb, Anxiety 300.00 and Chronic p ain 338.29 [place] [address] [place] [id number] [address] [place] [address] Feb, [place] [address] [place] [id number] [address] [place] [address] Feb, [place] [address] [address] Jan, terminal gauger 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 therapy V58.61 and Dysuria 788.1 [place] [address] [place] [id number] [place] [address] Jan, Dysuria 788.1 [facility] [address] [place] [id number] [address] [address] Jan, Anxiety 300.00 and Chronic p ain 338.29 [facility] [address] [place] [id number] [place] [address] Jan, [facility] [address] [address] Jan, [facility] [address] [address] Jan, [place] [address] [address] Dec, Weakness 780.79 [place] [address] [address] Dec, snf 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 therapy V58.61 [place] [address] [address] Dec, Palpitations 785.1 ; Tremor 781.0 ; Weakness 780.79 ; snf current use of anticoagulant therapy V58.61 and Yeast vaginitis 112.1 [place] [address] [place] [id number] [address] [place] [address] Dec, [place] [address] [address] Dec, Cervicalgia 723.1 ; Tachycar yoseph 785.0 ; Pseudotumor cerebri 348.2 and History of venous thromboembolism V12.51 [place] [address] [address] Nov, [place] [address] [address] Nov, [place] [address] [address] Nov, Tachycardia 785.0 ; Pseudotu mor cerebri 348.2 ; Anxiety 300.00 and History of venous thromboembolism V12.51 [facility] [address] [id number] [address] [place] [address] Nov, [facility] [address] [id number] [address] [place] [address] 18 Nov, 2014 [facility] [address] [id number] [address] [place] [address] Nov, [facility] [address] [id number] [address] [place] [address] Nov, [facility] [address] [facility] [id number] [address] [place] [address] Nov, [facility] [address] [facility] [id number] [address] [place] [address] Nov, [facility] [address] [facility] [id number] [address] [place] [address] Nov, [facility] [address] [facility] [id number] [address] [place] [address] October, [facility] [address] [facility] [id number] [address] [place] [address] October, [facility] [address] [place] [id number] [address] [place] [address] October, Pain in thoracic spine 724.1 and Tachycardia 785.0 [facility] [address] [id number] [address] [place] [address] October, [facility] [address] [id number] [address] [place] [address] October, [facility] [address] [facility] [id number] [address] [place] [address] 14 Sep, 2014 [facility] [address] [facility] [id number] [address] [place] [address] Sep, [facility] [address] [id number] [facility] [place] [address] Aug, [facility] [address] [id number] [address] [place] [address], [place] [address] Aug, [facility] [address] [id number] [address] [place] [address], [place] [address] Aug, [facility] [address] [id number] [address] [place] [address], [place] [address] Aug, [facility] [address] [id number] [address] [place] [address], [place] [address] Aug, [facility] [address] [id number] [address] [place] [address], [place] [address] Aug, [facility] [address] [id number] [address] [place] [address], [place] [address] Aug, [facility] [address] [id number] [address] [place] [address], [place] [address] Aug, [facility] [address] [id number] [address] [place] [address], [place] [address] Aug, [facility] [address] [id number] [address] [place] [address], [place] [address] Aug, [facility] [address] [id number] [address] [place] [address], [place] [address] Aug, [facility] [address] [id number] [address] [place] [address], [place] [address] Aug, 2014 [facility] [address] [id number] [address] [place] [address], [place] [address] Jul, [facility] [address] [id number] [address] [place] [address], [place] [address] Jul, [facility] [address] [id number] [address] [place] [address], [place] [address] Jul, [facility] [address] [id number] [address] [place] [address], [place] [address] Jul, [facility] [address] [id number] [address] [place] [address], [place] [address] 23 Jul, 2014 [facility] [address] [id number] [address] [place] [address], [place] [address] 23 Jul, 2014 [facility] [address] [id number] [address] [place] [address], [place] [address] 23 Jul, 2014 [facility] [address] [id number] [address] [place] [address], [place] [address] 23 Jul, 2014 [facility] [address] [id number] [address] [place] [address], [place] [address] 20 Jul, 2014 [facility] [address] [id number] [address] [place] [address], [place] [address] 20 Jul, 2014 [facility] [address] [id number] [address] [place] [address], [place] [address] 19 Jul, 2014 [facility] [address] [id number] [address] [place] [address], [place] [address] 19 Jul, 2014 [facility] [address] [id number] [address] [place] [address], [place] [address] 17 Jul, 2014 [facility] [address] [id number] [address] [place] [address], [place] [address] 17 Jul, 2014 [facility] [address] [id number] [address] [place] [address], [place] [address] 16 Jul, 2014 [facility] [address] [id number] [address] [place] [address], [place] [address] 16 Jul, 2014 [facility] [address] [id number] [address] [place] [address], [place] [address] 16 Jul, 2014 [facility] [address] [id number] [address] [place] [address] 16 Jul, 2014 [facility] [address] [id number] [address] [place] [address] 13 Jul, 2014 [facility] [address] [id number] [address] [place] [address], [place] [address] Jul, [facility] [address] [id number] [address] [place] [address], [place] [address] Jul, [facility] [address] [id number] [address] [place] [address], [place] [address] Jul, 2014 [facility] [address] [id number] [address] [place] [address], [place] [address] Jul, 2014 [facility] [address] [id number] [address] [place] [address], [place] [address] Jul, [facility] [address] [id number] [address] [place] [address], [place] [address] Jul, [facility] [address] [id number] [address] [place] [address], [place] [address] Jul, [facility] [address] [id number] [address] [place] [address], [place] [address] Jul, [facility] [address] [id number] [address] [place] [address], [place] [address] Jul, [facility] [address] [id number] [address] [place] [address], [place] [address] Jul, [facility] [address] [id number] [address] [place] [address], [place] [address] Jul, [facility] [address] [id number] [address] [place] [address], [place] [address] Jun, [facility] [address] [id number] [address] [place] [address], [place] [address] Jun, [facility] [address] [id number] [address] [place] [address], [place] [address] Jun, [facility] [address] [id number] [address] [place] [address], [place] [address] Jun, [facility] [address] [id number] [address] [place] [address], [place] [address] Jun, [facility] [address] [id number] [address] [place] [address], [place] [address] Jun, [facility] [address] [id number] [address] [place] [address], [place] [address] Jun, [facility] [address] [id number] [address] [place] [address], [place] [address] Jun, [facility] [address] [id number] [address] [place] [address], [place] [address] Jun, [facility] [address] [id number] [address] [place] [address], [place] [address] Jun, [facility] [address] [id number] [address] [place] [address], [place] [address] Jun, [facility] [address] [id number] [address] [place] [address], [place] [address] Jun, [facility] [address] [id number] [address] [place] [address], [place] [address] Jun, [facility] [address] [id number] [address] [place] [address], [place] [address] Jun, [facility] [address] [id number] [address] [place] [address], [place] [address] Jun, [facility] [address] [id number] [address] [place] [address], [place] [address] Jun, [facility] [address] [id number] [address] [place] [address], [place] [address] Jun, [facility] [address] [id number] [address] [place] [address], [place] [address] Jun, [facility] [address] [id number] [address] [place] [address], [place] [address] Jun, [facility] [address] [id number] [address] [place] [address], [place] [address] Jun, [facility] [address] [id number] [address] [place] [address], [place] [address] May, [facility] [address] [id number] [address] [place] [address], [place] [address] May, [facility] [address] [id number] [address] [place] [address], [place] [address] May, [facility] [address] [id number] [address] [place] [address], [place] [address] May, [facility] [address] [id number] [address] [place] [address], [place] [address] May, [facility] [address] [id number] [address] [place] [address], [place] [address] May, [facility] [address] [id number] [address] [place] [address], [place] [address] May, [facility] [address] [id number] [address] [place] [address], [place] [address] May, [facility] [address] [id number] [address] [place] [address], [place] [address] May, [facility] [address] [id number] [address] [place] [address], [place] [address] May, [facility] [address] [id number] [address] [place] [address], [place] [address] May, [facility] [address] [id number] [address] [place] [address], [place] [address] 18 May, 2014 [facility] [address] [id number] [address] [place] [address], [place] [address] 18 May, 2014 [facility] [address] [id number] [address] [place] [address], [place] [address] 17 May, 2014 [facility] [address] [id number] [address] [place] [address], [place] [address] 16 May, 2014 [facility] [address] [id number] [address] [place] [address], [place] [address] 16 May, 2014 [facility] [address] [id number] [address] [place] [address], [place] [address] 15 May, 2014 [facility] [address] [id number] [address] [place] [address], [place] [address] 15 May, 2014 [facility] [address] [id number] [address] [place] [address], [place] [address] May, [facility] [address] [id number] [address] [place] [address], [place] [address] May, [facility] [address] [id number] [address] [place] [address], [place] [address] May, [facility] [address] [id number] [address] [place] [address], [place] [address] May, [facility] [address] [id number] [address] [place] [address], [place] [address] May, [facility] [address] [id number] [address] [place] [address], [place] [address] May, [facility] [address] [id number] [address] [place] [address], [place] [address] May, [facility] [address] [id number] [address] [place] [address], [place] [address] May, [facility] [address] [id number] [address] [place] [address], [place] [address] May, [facility] [address] [id number] [address] [place] [address], [place] [address] May, [facility] [address] [id number] [address] [place] [address], [place] [address] May, [facility] [address] [id number] [address] [place] [address], [place] [address] May, [facility] [address] [id number] [address] [place] [address], [place] [address] May, [facility] [address] [id number] [address] [place] [address], [place] [address] May, [facility] [address] [id number] [address] [place] [address], [place] [address] May, [facility] [address] [id number] [address] [place] [address], [place] [address] May, [facility] [address] [id number] [address] [place] [address], [place] [address] Apr, [facility] [address] [id number] [address] [place] [address], [place] [address] Apr, [facility] [address] [id number] [address] [place] [address], [place] [address] Apr, [facility] [address] [id number] [address] [place] [address], [place] [address] Apr, [facility] [address] [id number] [address] [place] [address], [place] [address] Apr, [facility] [address] [id number] [address] [place] [address], [place] [address] Apr, [facility] [address] [id number] [address] [place] [address], [place] [address] Apr, [facility] [address] [id number] [address] [place] [address], [place] [address] Apr, [facility] [address] [id number] [address] [place] [address], [place] [address] Apr, [facility] [address] [id number] [address] [place] [address], [place] [address] Apr, [facility] [address] [id number] [address] [place] [address], [place] [address] Mar, [facility] [address] [id number] [address] [place] [address], [place] [address] Mar, [facility] [address] [id number] [address] [place] [address] [address] Mar, [facility] [address] [id number] [address] [place] [address], [place] [address] 31 Mar, 2013 [facility] [address] [id number] [address] [place] [address], [place] [address] Mar, [facility] [address] [id number] [address] [place] [address], [place] [address] 30 Mar, 2014 [facility] [address] [id number] [address] [place] [address], [place] [address] Mar, [facility] [address] [id number] [address] [place] [address], [place] [address] Mar, [facility] [address] [id number] [address] [place] [address], [place] [address] Mar, [facility] [address] [id number] [address] [place] [address], [place] [address] Mar, [facility] [address] [id number] [address] [place] [address] Mar, [facility] [address] [id number] [address] [place] [id number] Mar, [facility] [address] [id number] [address] [place] [id number] Mar, [facility] [address] [id number] [address] [place] [address] Mar, 2013 [facility] [address] [id number] [address] [place] [address] Mar, 2013 [facility] [address] [id number] [address] [place] [address] Mar, [facility] [address] [id number] [address] [place] [address] Mar, [facility] [address] [id number] [address] [place] [address] Mar, 2013 [facility] [address] [id number] [address] [place] [address], [place] [address] 02 Mar, 2013 [facility] [address] [id number] [address] [place] [address], [place] [address] 02 Mar, 2013 [facility] [address] [id number] [address] [place] [address], [place] [address] 05 Sep, 2013 [facility] [address] [id number] [address] [place] [address], [place] [address] 05 Sep, 2013 [facility] [address] [id number] [address] [place] [address], [place] [address] 04 Sep, 2013 [facility] [address] [id number] [address] [place] [address], [place] [address] 04 Sep, 2013 [facility] [address] [id number] [address] [place] [address], [place] [address] 03 Feb, 2013 [facility] [address] [id number] [address] [place] [address], [place] [address] 03 Feb, 2013 [facility] [address] [id number] [address] [place] [address], [place] [address] 02 Feb, 2013 [facility] [address] [id number] [address] [place] [address], [place] [address] Feb, 2013 [facility] [address] [id number] [address] [place] [address], [place] [address] 02 Feb, 2013 [facility] [address] [id number] [address] [place] [address], [place] [address] Feb, 2013 [facility] [address] [id number] [address] [place] [address], [place] [address] Jan, [facility] [address] [id number] [address] [place] [address], [place] [address] Jan, [facility] [address] [id number] [address] [place] [address], [place] [address] Jan, [facility] [address] [id number] [address] [place] [address], [place] [address] Jan, [facility] [address] [id number] [facility] [place] [address] Jan, [facility] [address] [id number] [address] [place] [address], [place] [address] Jan, [facility] [address] [id number] [address] [place] [address], [place] [address] Jan, [facility] [address] [id number] [address] [place] [address], [place] [address] Jan, [facility] [address] [id number] [address] [place] [address], [place] [address] Jan, [facility] [address] [id number] [address] [place] [address], [place] [address] Jan, [facility] [address] [id number] [address] [place] [address], [place] [address] Jan, [facility] [address] [id number] [address] [place] [address], [place] [address] Jan, [facility] [address] [id number] [address] [place] [address], [place] [address] Dec, [facility] [address] [id number] [address] [place] [address], [place] [address] Dec, [facility] [address] [id number] [address] [place] [address], [place] [address] Dec, [facility] [address] [id number] [address] [place] [address], [place] [address] Dec, [facility] [address] [id number] [address] [place] [address], [place] [address] Dec, [facility] [address] [id number] [address] [place] [address], [place] [address] Dec, [facility] [address] [id number] [address] [place] [address], [place] [address] Dec, [facility] [address] [id number] [address] [place] [address], [place] [address] Dec, [facility] [address] [id number] [facility] [place] [address] Dec, [facility] [address] [id number] [address] [place] [address], [place] [address] Dec, [facility] [address] [id number] [address] [place] [address], [place] [address] Dec, [facility] [address] [id number] [address] [place] [address], [place] [address] Dec, [facility] [address] [id number] [address] [place] [address], [place] [address] Nov, [facility] [address] [id number] [address] [place] [address], [place] [address] Nov, [facility] [address] [id number] [address] [place] [address], [place] [address] Nov, [facility] [address] [id number] [address] [place] [address], [place] [address] Nov, [facility] [address] [id number] [address] [place] [address], [place] [address] Nov, [facility] [address] [id number] [address] [place] [address], [place] [address] Nov, [facility] [address] [id number] [address] [place] [address], [place] [address] Nov, [facility] [address] [id number] [address] [place] [address], [place] [address] Nov, [facility] [address] [id number] [address] [place] [address], [place] [address] Nov, [facility] [address] [id number] [address] [place] [address], [place] [address] Nov, [facility] [address] [id number] [address] [place] [address], [place] [address] Nov, [facility] [address] [id number] [facility] [place] [address] Nov, [facility] [address] [id number] [address] [place] [address], [place] [address] Nov, [facility] [address] [id number] [address] [place] [address], [place] [address] Nov, [facility] [address] [id number] [address] [place] [address], [place] [address] October, [facility] [address] [id number] [address] [place] [address], [place] [address] October, [facility] [address] [id number] [address] [place] [address], [place] [address] October, [facility] [address] [id number] [address] [place] [address], [place] [address] October, [facility] [address] [id number] [address] [place] [address], [place] [address] October, [facility] [address] [id number] [address] [place] [address], [place] [address] October, [facility] [address] [id number] [address] [place] [address], [place] [address] October, [facility] [address] [id number] [address] [place] [address], [place] [address] October, [facility] [address] [id number] [address] [place] [address], [place] [address] October, [facility] [address] [id number] [address] [place] [address], [place] [address] October, [facility] [address] [id number] [address] [place] [address], [place] [address] October, [facility] [address] [id number] [address] [place] [address], [place] [address] October, [facility] [address] [id number] [address] [place] [address], [place] [address] Sep, [facility] [address] [id number] [address] [place] [address] Sep, [facility] [address] [id number] [address] [place] [address], [place] [address] Sep, [facility] [address] [id number] [facility] [place] [address] Sep, [facility] [address] [id number] [address] [place] [address], [place] [address] Sep, [facility] [address] [id number] [address] [place] [address], [place] [address] Sep, [facility] [address] [id number] [address] [place] [address], [place] [address] Aug, [facility] [address] [id number] [address] [place] [address], [place] [address] Aug, [facility] [address] [id number] [address] [place] [address], [place] [address] Aug, [facility] [address] [id number] [address] [place] [address], [place] [address] Aug, [facility] [address] [id number] [address] [place] [address], [place] [address] Aug, [facility] [address] [id number] [address] [place] [address], [place] [address] Aug, [facility] [address] [id number] [address] [place] [address], [place] [address] Jul, [facility] [address] [id number] [address] [place] [address], [place] [address] Jul, [facility] [address] [id number] [address] [place] [address], [place] [address] Jul, [facility] [address] [id number] [address] [place] [address], [place] [address] Jul, [facility] [address] [id number] [address] [place] [address], [place] [address] 13 Jul, 2013 [facility] [address] [id number] [address] [place] [address], [place] [address] Jul, [facility] [address] [id number] [address] [place] [address], [place] [address] Jul, [facility] [address] [id number] [address] [place] [address], [place] [address] Jul, [facility] [address] [id number] [address] [place] [address], [place] [address] Jul, [facility] [address] [id number] [address] [place] [address], [place] [address] Jul, [facility] [address] [id number] [address] [place] [address], [place] [address] Jun, [facility] [address] [id number] [address] [place] [address], [place] [address] Jun, [facility] [address] [id number] [address] [place] [address], [place] [address] Jun, [facility] [address] [id number] [address] [place] [address], [place] [address] Jun, [facility] [address] [id number] [address] [place] [address], [place] [address] Jun, [facility] [address] [id number] [address] [place] [address], [place] [address] Jun, [facility] [address] [id number] [address] [place] [address], [place] [address] Jun, [facility] [address] [id number] [address] [place] [address], [place] [address] Jun, [facility] [address] [id number] [address] [place] [address], [place] [address] May, [facility] [address] [id number] [address] [place] [address], [place] [address] May, [facility] [address] [id number] [address] [place] [address], [place] [address] May, [facility] [address] [id number] [address] [place] [address], [place] [address] May, [facility] [address] [id number] [address] [place] [address], [place] [address] May, [facility] [address] [id number] [address] [place] [address], [place] [address] May, [facility] [address] [id number] [address] [place] [address], [place] [address] May, [facility] [address] [id number] [address] [place] [address], [place] [address] May, [facility] [address] [id number] [address] [place] [address], [place] [address] Apr, [facility] [address] [id number] [address] [address] Apr, [facility] [address] [id number] [address] [place] [address], [place] [address] Apr, [facility] [address] [id number] [address] [place] [address] Apr, [facility] [address] [id number] [address] [address] Apr, [facility] [address] [id number] [address] [place] [address] Apr, [facility] [address] [id number] [address] [place] [address], [place] [address] Mar, [facility] [address] [id number] [address] [place] [address] Mar, [facility] [address] [id number] [address] [place] [address], [place] [address] Mar, [facility] [address] [id number] [address] [place] [address], [place] [address] Mar, [facility] [address] [id number] [address] [place] [address], [place] [address] Mar, [facility] [address] [id number] [address] [place] [address], [place] [address] Mar, [facility] [address] [id number] [address] [place] [address], [place] [address] Mar, [facility] [address] [id number] [address] [place] [address], [place] [address] 30 Feb, 2012 [facility] [address] [id number] [address] [place] [address], [place] [address] 30 Feb, 2013 [facility] [address] [id number] [address] [place] [address], [place] [address] 27 Feb, 2013 [facility] [address] [id number] [address] [place] [address], [place] [address] Feb, 2012 [facility] [address] [id number] [address] [place] [address], [place] [address] Feb, [facility] [address] [id number] [address] [place] [address], [place] [address] Feb, [facility] [address] [id number] [address] [place] [address], [place] [address] Jan, [facility] [address] [id number] [address] [place] [address], [place] [address] Jan, [facility] [address] [id number] [address] [place] [address], [place] [address] Jan, [facility] [address] [id number] [address] [place] [address], [place] [address] Jan, [facility] [address] [id number] [address] [place] [address], [place] [address] Jan, [facility] [address] [id number] [address] [place] [address], [place] [address] Jan, [facility] [address] [id number] [address] [place] [address], [place] [address] Jan, [facility] [address] [id number] [address] [place] [address], [place] [address] Jan, [facility] [address] [id number] [address] [place] [address], [place] [address] Jan, [facility] [address] [id number] [address] [place] [address], [place] [address] Dec, [facility] [address] [id number] [address] [place] [address], [place] [address] Dec, [facility] [address] [id number] [address] [place] [address], [place] [address] Dec, [facility] [address] [id number] [address] [place] [address], [place] [address] Dec, [facility] [address] [id number] [address] [place] [address], [place] [address] Dec, [facility] [address] [id number] [address] [place] [address], [place] [address] Dec, [facility] [address] [id number] [address] [place] [address], [place] [address] Dec, [facility] [address] [id number] [address] [place] [address], [place] [address] Dec, [facility] [address] [id number] [address] [place] [address], [place] [address] Dec, [facility] [address] [id number] [address] [place] [address], [place] [address] Dec, [facility] [address] [id number] [address] [place] [address], [place] [address] Dec, [facility] [address] [id number] [address] [place] [address], [place] [address] Dec, [facility] [address] [id number] [address] [place] [address], [place] [address] Dec, [facility] [address] [id number] [address] [place] [address], [place] [address] Nov, [facility] [address] [id number] [address] [place] [address], [place] [address] Nov, [facility] [address] [id number] [address] [place] [address], [place] [address] Nov, [facility] [address] [id number] [address] [place] [address], [place] [address] Nov, [facility] [address] [id number] [address] [place] [address], [place] [address] October, [facility] [address] [id number] [address] [place] [address], [place] [address] October, [facility] [address] [id number] [address] [place] [address], [place] [address] October, [facility] [address] [id number] [address] [place] [address], [place] [address] October, [facility] [address] [id number] [address] [place] [address], [place] [address] October, [facility] [address] [id number] [address] [place] [address], [place] [address] October, [facility] [address] [id number] [address] [place] [address], [place] [address] Sep, [facility] [address] [id number] [address] [place] [address], [place] [address] Sep, [facility] [address] [id number] [address] [place] [address], [place] [address] Sep, [facility] [address] [id number] [address] [place] [address], [place] [address] Sep, [facility] [address] [id number] [address] [place] [address], [place] [address] Sep, [facility] [address] [id number] [facility] [place] [address] 16 Sep, 2012 [facility] [address] [id number] [address] [place] [address], [place] [address] 12 Sep, 2012 [facility] [address] [id number] [address] [place] [address], [place] [address] Sep, [facility] [address] [id number] [address] [place] [address], [place] [address] Sep, [facility] [address] [id number] [address] [place] [address], [place] [address] Sep, [facility] [address] [id number] [address] [place] [address], [place] [address] Sep, [facility] [address] [id number] [address] [place] [address], [place] [address] Aug, [facility] [address] [id number] [address] [place] [address], [place] [address] 25 Aug, 2012 [facility] [address] [id number] [address] [place] [address], [place] [address] 25 Aug, 2012 [facility] [address] [id number] [address] [place] [address], [place] [address] 21 Aug, 2012 [facility] [address] [id number] [address] [place] [address], [place] [address] 19 Aug, 2012 [facility] [address] [id number] [address] [place] [address], [place] [address] 18 Aug, 2012 [facility] [address] [id number] [address] [place] [address], [place] [address] 17 Aug, 2012 [facility] [address] [id number] [address] [place] [address], [place] [address] 15 Aug, 2012 [facility] [address] [id number] [address] [place] [address], [place] [address] 15 Aug, 2012 [facility] [address] [id number] [address] [place] [address], [place] [address] Aug, [facility] [address] [id number] [address] [place] [address], [place] [address] Aug, [facility] [address] [id number] [address] [place] [address], [place] [address] Aug, [facility] [address] [id number] [address] [place] [address], [place] [address] Jul, [facility] [address] [id number] [address] [place] [address], [place] [address] Jul, [facility] [address] [id number] [address] [place] [address], [place] [address] Jul, [facility] [address] [id number] [address] [place] [address], [place] [address] Jul, [facility] [address] [id number] [address] [place] [address], [place] [address] Jul, [facility] [address] [id number] [address] [place] [address], [place] [address] Jul, [facility] [address] [id number] [address] [place] [address], [place] [address] Jul, [facility] [address] [id number] [address] [place] [address], [place] [address] Jul, [facility] [address] [id number] [address] [place] [address], [place] [address] Jul, [facility] [address] [id number] [address] [place] [address], [place] [address] Jul, [facility] [address] [id number] [address] [place] [address], [place] [address] May, [facility] [address] [id number] [id number] May, [facility] [address] [id number] [address] [place] [address], [place] [address] May, [facility] [address] [id number] [address] [place] [address] May, [facility] [address] [facility] [id number] [address] [place] [id number] May, [facility] [address] [facility] [id number] [address] [place] [id number] Apr, [facility] [address] [id number] [place] [id number] Apr, [facility] [address] [facility] [id number] [address] [place] [id number] Apr, [facility] [address] [facility] [id number] [address] [place] [address] Mar, [facility] [address] [id number] [place] [id number] Mar, [facility] [address] [facility] [id number] [address] [place] [id number] Mar, [facility] [address] [id number] [place] [id number] Feb, [facility] [address] [facility] [id number] [address] [place] [id number] Feb, [facility] [address] [facility] [id number] [address] [place] [id number] Feb, [facility] [address] [id number] [place] [id number] Feb, [facility] [address] [id number] [place] [id number] Feb, [facility] [address] [id number] [place] [id number] Jan, [facility] [address] [id number] [address] [place] [address], [place] [address] Jan, [facility] [address] [id number] [place] [id number] Jan, [facility] [address] [id number] [place] [id number] Jan, [facility] [address] [id number] [place] [id number] Jan, [facility] [address] [facility] [id number] [address] [place] [address], [place] [address] Jan, [facility] [address] [facility] [id number] [address] [place] [address], [place] [address] Jan, [facility] [address] [facility] [id number] [address] [place] [address], [place] [address] Aug, [facility] [address] [id number] [place] [id number] Aug, [facility] [address] [facility] [id number] [address] [place] [address], [place] [address] Jul, [facility] [address] [facility] [id number] [address] [place] [address], [place] [address] Jul, [facility] [address] [facility] [id number] [address] [place] [address], [place] [address] Jul, [facility] [address] [id number] [place] [id number] Jul, [facility] [address] [facility] [id number] [address] [place] [address], [place] [address] Jul, [facility] [address] [id number] [place] [id number] Jul, [facility] [address] [facility] [id number] [address] [place] [address], [place] [address] Jul, [facility] [address] [id number] [place] [id number] Jul, [facility] [address] [id number] [place] [id number] Jul, [facility] [address] [id number] [place] [id number] Jul, [facility] [address] [facility] [id number] [address] [place] [address], [place] [address] May, [facility] [address] [id number] [address] [place] [id number] May, [facility] [address] [id number] [address] [place] [id number] May, [facility] [address] [id number] [address] [place] [id number] Apr, [facility] [address] [id number] [address] [place] [id number] Jan, [facility] [address] [id number] [address] [place] [id number] Jan, [facility] [address] [id number] [address] [place] [id number] Dec, [facility] [address] [id number] [address] [place] [id number] Dec, [facility] [address] [id number] [address] [place] [id number] May, [facility] [address] [id number] [address] [place] [address] Mar, [facility] [address] [id number] [address] [place] [id number] Mar, [facility] [address] [id number] [address] [place] [id number] Jan, IMMUNIZATIONS No Known Immunizations SOCIAL HISTORY Never Assessed REASON FOR VISIT PLAN OF CARE VITAL SIGNS Height 63 in 2014-07-11 Weight 195.2 lbs 2014-07-11 Temperature 98.5 degrees Fahrenheit 2014-07-11 Heart Rate 84 bpm 2014-07-11 Respiratory Rate 20 2014-07-11 Blood pressure systolic 126 mmHg 2014-07-11 Blood pressure diastolic 78 mmHg 2014-07-11 MEDICATIONS Unknown Medications RESULTS No Results PROCEDURES Procedure Date Ordered Result Body Site PROTHROMBIN TIME Jul 11, 2014 X-RAY EXAM OF ABDOMEN Jul 11, 2014 INSTRUCTIONS MEDICATIONS ADMINISTERED No Known [...]
--- OUTSIDE RECORDS SUMMARY | 2020-01-28 12:42 | XMS REPORT ---
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 816190365 Problem History of venous thromboembolism V12.51 Active 934034912 Problem Cellulitis of unspecified part of limb L03.119 Active 594610205 Problem Gastroesophageal reflux disease without esophagitis K21.9 Active 741833654 Problem History of pulmonary embolism Z86.711 Active 663995342 Problem Pseudotumor cerebri G93.2 Active 06576433 Problem History of DVT (deep vein thrombosis) Z86.718 Active 441803578 ALLERGIES No Information ENCOUNTERS Encounter Location Date Diagnosis [place] [id number] [facility] [id number] [address] [place] [address] Apr, care home (current) use of 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 Z79.01 [facility] [address] [facility] [id number] [address] [place] [address] Apr, care home 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.01 [facility] [address] [facility] [id number] [address] [place] [address] Apr, Cellulitis of unspecified pa rt of limb L03.119 ; Allergic contact dermatitis due to adhesives L23.1 and Chronic pain syndrome G89.4 [facility] [address] [facility] [id number] [address] [place] [address] Apr, [place] [address] [place] [id number] [address] [place] [address] Apr, 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 ; Cellulitis of unspecified part of limb L03.119 ; Chronic pain syndrome G89.4 and Anxiety F41.9 [facility] [address] [place] [id number] [address] [place] [address] 16 Apr, 2015 [facility] [address] [place] [id number] [place] [address] Apr, [place] [address] [place] [id number] [place] [address] Mar, [place] [address] [address] Mar, [place] [address] [address] Mar, Sore throat J02.9 ; Gastroes ophageal reflux disease without esophagitis K21.9 ; Pseudotumor cerebri G93.2 ; Chronic pain syndrome G89.4 ; Choriocarcinoma C58 ; History of pulmonary embolism Z86.711 ; History of DVT (deep vein thrombosis) Z86.718 ; Anxiety F41.9 and Tachycardia R00.0 [place] [address] [address] Feb, Anxiety 300.00 and Chronic p ain 338.29 [place] [address] [place] [id number] [address] [place] [address] Feb, [place] [address] [place] [id number] [address] [place] [address] Feb, [place] [address] [address] Jan, 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 V58.61 and Dysuria 788.1 [place] [address] [place] [id number] [place] [address] Jan, Dysuria 788.1 [facility] [address] [place] [id number] [address] [place] [address] Jan, Anxiety 300.00 and Chronic p ain 338.29 [facility] [address] [place] [id number] [place] [address] Jan, [facility] [address] [address] Jan, [facility] [address] [address] Jan, [place] [address] [address] Dec, Weakness 780.79 [place] [address] [address] Dec, care home 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 therapy V58.61 [place] [address] [address] Dec, Palpitations 785.1 ; Tremor 781.0 ; Weakness 780.79 ; care home current use of anticoagulant therapy V58.61 and Yeast vaginitis 112.1 [place] [address] [place] [id number] [address] [place] [address] Dec, [place] [address] [address] Dec, Cervicalgia 723.1 ; Tachycar yoseph 785.0 ; Pseudotumor cerebri 348.2 and History of venous thromboembolism V12.51 [place] [address] [address] Nov, [place] [address] [address] Nov, [place] [address] [address] Nov, Tachycardia 785.0 ; Pseudotu mor cerebri 348.2 ; Anxiety 300.00 and History of venous thromboembolism V12.51 [facility] [address] [id number] [address] [place] [address] Nov, [facility] [address] [id number] [address] [place] [address] 18 Nov, 2014 [facility] [address] [id number] [address] [place] [address] Nov, [facility] [address] [id number] [address] [place] [address] Nov, [facility] [address] [facility] [id number] [address] [place] [address] Nov, [facility] [address] [facility] [id number] [address] [place] [address] Nov, [facility] [address] [facility] [id number] [address] [place] [address] Nov, [facility] [address] [facility] [id number] [address] [place] [address] October, [facility] [address] [facility] [id number] [address] [place] [address] October, [facility] [address] [place] [id number] [address] [place] [address] October, Pain in thoracic spine 724.1 and Tachycardia 785.0 [facility] [address] [id number] [address] [place] [address] October, [facility] [address] [id number] [address] [place] [address] October, [facility] [address] [facility] [id number] [address] [place] [address] 14 Sep, 2014 [facility] [address] [facility] [id number] [address] [place] [address] Sep, [facility] [address] [id number] [facility] [place] [address] Aug, [facility] [address] [id number] [address] [place] [address], [place] [address] Aug, [facility] [address] [id number] [address] [place] [address], [place] [address] Aug, [facility] [address] [id number] [address] [place] [address], [place] [address] Aug, [facility] [address] [id number] [address] [place] [address], [place] [address] Aug, [facility] [address] [id number] [address] [place] [address], [place] [address] Aug, [facility] [address] [id number] [address] [place] [address], [place] [address] Aug, [facility] [address] [id number] [address] [place] [address], [place] [address] Aug, [facility] [address] [id number] [address] [place] [address], [place] [address] Aug, [facility] [address] [id number] [address] [place] [address], [place] [address] Aug, [facility] [address] [id number] [address] [place] [address], [place] [address] Aug, [facility] [address] [id number] [address] [place] [address], [place] [address] Aug, 2014 [facility] [address] [id number] [address] [place] [address], [place] [address] Jul, [facility] [address] [id number] [address] [place] [address], [place] [address] Jul, [facility] [address] [id number] [address] [place] [address], [place] [address] Jul, [facility] [address] [id number] [address] [place] [address], [place] [address] Jul, [facility] [address] [id number] [address] [place] [address], [place] [address] 23 Jul, 2014 [facility] [address] [id number] [address] [place] [address], [place] [address] 23 Jul, 2014 [facility] [address] [id number] [address] [place] [address], [place] [address] 23 Jul, 2014 [facility] [address] [id number] [address] [place] [address], [place] [address] 23 Jul, 2014 [facility] [address] [id number] [address] [place] [address], [place] [address] 20 Jul, 2014 [facility] [address] [id number] [address] [place] [address], [place] [address] 20 Jul, 2014 [facility] [address] [id number] [address] [place] [address], [place] [address] 19 Jul, 2014 [facility] [address] [id number] [address] [place] [address], [place] [address] 19 Jul, 2014 [facility] [address] [id number] [address] [place] [address], [place] [address] 17 Jul, 2014 [facility] [address] [id number] [address] [place] [address], [place] [address] 17 Jul, 2014 [facility] [address] [id number] [address] [place] [address], [place] [address] 16 Jul, 2014 [facility] [address] [id number] [address] [place] [address], [place] [address] 16 Jul, 2014 [facility] [address] [id number] [address] [place] [address], [place] [address] 16 Jul, 2014 [facility] [address] [id number] [address] [place] [address] 16 Jul, 2014 [facility] [address] [id number] [address] [place] [address] 13 Jul, 2014 [facility] [address] [id number] [address] [place] [address], [place] [address] Jul, [facility] [address] [id number] [address] [place] [address], [place] [address] Jul, [facility] [address] [id number] [address] [place] [address], [place] [address] Jul, 2014 [facility] [address] [id number] [address] [place] [address], [place] [address] Jul, 2014 [facility] [address] [id number] [address] [place] [address], [place] [address] Jul, [facility] [address] [id number] [address] [place] [address], [place] [address] Jul, [facility] [address] [id number] [address] [place] [address], [place] [address] Jul, [facility] [address] [id number] [address] [place] [address], [place] [address] Jul, [facility] [address] [id number] [address] [place] [address], [place] [address] Jul, [facility] [address] [id number] [address] [place] [address], [place] [address] Jul, [facility] [address] [id number] [address] [place] [address], [place] [address] Jul, [facility] [address] [id number] [address] [place] [address], [place] [address] Jun, [facility] [address] [id number] [address] [place] [address], [place] [address] Jun, [facility] [address] [id number] [address] [place] [address], [place] [address] Jun, [facility] [address] [id number] [address] [place] [address], [place] [address] Jun, [facility] [address] [id number] [address] [place] [address], [place] [address] Jun, [facility] [address] [id number] [address] [place] [address], [place] [address] Jun, [facility] [address] [id number] [address] [place] [address], [place] [address] Jun, [facility] [address] [id number] [address] [place] [address], [place] [address] Jun, [facility] [address] [id number] [address] [place] [address], [place] [address] Jun, [facility] [address] [id number] [address] [place] [address], [place] [address] Jun, [facility] [address] [id number] [address] [place] [address], [place] [address] Jun, [facility] [address] [id number] [address] [place] [address], [place] [address] Jun, [facility] [address] [id number] [address] [place] [address], [place] [address] Jun, [facility] [address] [id number] [address] [place] [address], [place] [address] Jun, [facility] [address] [id number] [address] [place] [address], [place] [address] Jun, [facility] [address] [id number] [address] [place] [address], [place] [address] Jun, [facility] [address] [id number] [address] [place] [address], [place] [address] Jun, [facility] [address] [id number] [address] [place] [address], [place] [address] Jun, [facility] [address] [id number] [address] [place] [address], [place] [address] Jun, [facility] [address] [id number] [address] [place] [address], [place] [address] Jun, [facility] [address] [id number] [address] [place] [address], [place] [address] May, [facility] [address] [id number] [address] [place] [address], [place] [address] May, [facility] [address] [id number] [address] [place] [address], [place] [address] May, [facility] [address] [id number] [address] [place] [address], [place] [address] May, [facility] [address] [id number] [address] [place] [address], [place] [address] May, [facility] [address] [id number] [address] [place] [address], [place] [address] May, [facility] [address] [id number] [address] [place] [address], [place] [address] May, [facility] [address] [id number] [address] [place] [address], [place] [address] May, [facility] [address] [id number] [address] [place] [address], [place] [address] May, [facility] [address] [id number] [address] [place] [address], [place] [address] May, [facility] [address] [id number] [address] [place] [address], [place] [address] May, [facility] [address] [id number] [address] [place] [address], [place] [address] 18 May, 2014 [facility] [address] [id number] [address] [place] [address], [place] [address] 18 May, 2014 [facility] [address] [id number] [address] [place] [address], [place] [address] 17 May, 2014 [facility] [address] [id number] [address] [place] [address], [place] [address] 16 May, 2014 [facility] [address] [id number] [address] [place] [address], [place] [address] 16 May, 2014 [facility] [address] [id number] [address] [place] [address], [place] [address] 15 May, 2014 [facility] [address] [id number] [address] [place] [address], [place] [address] 15 May, 2014 [facility] [address] [id number] [address] [place] [address], [place] [address] May, [facility] [address] [id number] [address] [place] [address], [place] [address] May, [facility] [address] [id number] [address] [place] [address], [place] [address] May, [facility] [address] [id number] [address] [place] [address], [place] [address] May, [facility] [address] [id number] [address] [place] [address], [place] [address] May, [facility] [address] [id number] [address] [place] [address], [place] [address] May, [facility] [address] [id number] [address] [place] [address], [place] [address] May, [facility] [address] [id number] [address] [place] [address], [place] [address] May, [facility] [address] [id number] [address] [place] [address], [place] [address] May, [facility] [address] [id number] [address] [place] [address], [place] [address] May, [facility] [address] [id number] [address] [place] [address], [place] [address] May, [facility] [address] [id number] [address] [place] [address], [place] [address] May, [facility] [address] [id number] [address] [place] [address], [place] [address] May, [facility] [address] [id number] [address] [place] [address], [place] [address] May, [facility] [address] [id number] [address] [place] [address], [place] [address] May, [facility] [address] [id number] [address] [place] [address], [place] [address] May, [facility] [address] [id number] [address] [place] [address], [place] [address] Apr, [facility] [address] [id number] [address] [place] [address], [place] [address] Apr, [facility] [address] [id number] [address] [place] [address], [place] [address] Apr, [facility] [address] [id number] [address] [place] [address], [place] [address] Apr, [facility] [address] [id number] [address] [place] [address], [place] [address] Apr, [facility] [address] [id number] [address] [place] [address], [place] [address] Apr, [facility] [address] [id number] [address] [place] [address], [place] [address] Apr, [facility] [address] [id number] [address] [place] [address], [place] [address] Apr, [facility] [address] [id number] [address] [place] [address], [place] [address] Apr, [facility] [address] [id number] [address] [place] [address], [place] [address] Apr, [facility] [address] [id number] [address] [place] [address], [place] [address] Mar, [facility] [address] [id number] [address] [place] [address], [place] [address] Mar, [facility] [address] [id number] [address] [place] [address] [address] Mar, [facility] [address] [id number] [address] [place] [address], [place] [address] 31 Mar, 2013 [facility] [address] [id number] [address] [place] [address], [place] [address] Mar, [facility] [address] [id number] [address] [place] [address], [place] [address] 30 Mar, 2014 [facility] [address] [id number] [address] [place] [address], [place] [address] Mar, [facility] [address] [id number] [address] [place] [address], [place] [address] Mar, [facility] [address] [id number] [address] [place] [address], [place] [address] Mar, [facility] [address] [id number] [address] [place] [address], [place] [address] Mar, [facility] [address] [id number] [address] [place] [id number] Mar, [facility] [address] [id number] [address] [place] [address] Mar, [facility] [address] [id number] [address] [place] [id number] Mar, [facility] [address] [id number] [address] [place] [address] Mar, 2013 [facility] [address] [id number] [address] [place] [address] Mar, 2013 [facility] [address] [id number] [address] [place] [id number] Mar, [facility] [address] [id number] [address] [place] [address] Mar, [facility] [address] [id number] [address] [place] [address] Mar, 2013 [facility] [address] [id number] [address] [place] [address], [place] [address] 02 Mar, 2013 [facility] [address] [id number] [address] [place] [address], [place] [address] 02 Mar, 2013 [facility] [address] [id number] [address] [place] [address], [place] [address] 05 Sep, 2013 [facility] [address] [id number] [address] [place] [address], [place] [address] 05 Sep, 2013 [facility] [address] [id number] [address] [place] [address], [place] [address] 04 Sep, 2013 [facility] [address] [id number] [address] [place] [address], [place] [address] 04 Sep, 2013 [facility] [address] [id number] [address] [place] [address], [place] [address] 03 Feb, 2013 [facility] [address] [id number] [address] [place] [address], [place] [address] 03 Feb, 2013 [facility] [address] [id number] [address] [place] [address], [place] [address] 02 Feb, 2013 [facility] [address] [id number] [address] [place] [address], [place] [address] Feb, 2013 [facility] [address] [id number] [address] [place] [address], [place] [address] 02 Feb, 2013 [facility] [address] [id number] [address] [place] [address], [place] [address] Feb, 2013 [facility] [address] [id number] [address] [place] [address], [place] [address] Jan, [facility] [address] [id number] [address] [place] [address], [place] [address] Jan, [facility] [address] [id number] [address] [place] [address], [place] [address] Jan, [facility] [address] [id number] [address] [place] [address], [place] [address] Jan, [facility] [address] [id number] [facility] [place] [address] Jan, [facility] [address] [id number] [address] [place] [address], [place] [address] Jan, [facility] [address] [id number] [address] [place] [address], [place] [address] Jan, [facility] [address] [id number] [address] [place] [address], [place] [address] Jan, [facility] [address] [id number] [address] [place] [address], [place] [address] Jan, [facility] [address] [id number] [address] [place] [address], [place] [address] Jan, [facility] [address] [id number] [address] [place] [address], [place] [address] Jan, [facility] [address] [id number] [address] [place] [address], [place] [address] Jan, [facility] [address] [id number] [address] [place] [address], [place] [address] Dec, [facility] [address] [id number] [address] [place] [address], [place] [address] Dec, [facility] [address] [id number] [address] [place] [address], [place] [address] Dec, [facility] [address] [address] [id number] [address] [place] [address], [place] [address] Dec, [facility] [address] [id number] [address] [place] [address], [place] [address] Dec, [facility] [address] [id number] [address] [place] [address], [place] [address] Dec, [facility] [address] [id number] [address] [place] [address], [place] [address] Dec, [facility] [address] [id number] [address] [place] [address], [place] [address] Dec, [facility] [address] [id number] [facility] [place] [address] Dec, [facility] [address] [id number] [address] [place] [address], [place] [address] Dec, [facility] [address] [id number] [address] [place] [address], [place] [address] Dec, [facility] [address] [id number] [address] [place] [address], [place] [address] Dec, [facility] [address] [id number] [address] [place] [address], [place] [address] Nov, [facility] [address] [id number] [address] [place] [address], [place] [address] Nov, [facility] [address] [id number] [address] [place] [address], [place] [address] Nov, [facility] [address] [id number] [address] [place] [address], [place] [address] Nov, [facility] [address] [id number] [address] [place] [address], [place] [address] Nov, [facility] [address] [id number] [address] [place] [address], [place] [address] Nov, [facility] [address] [id number] [address] [place] [address], [place] [address] Nov, [facility] [address] [id number] [address] [place] [address], [place] [address] Nov, [facility] [address] [id number] [address] [place] [address], [place] [address] Nov, [facility] [address] [id number] [address] [place] [address], [place] [address] Nov, [facility] [address] [id number] [address] [place] [address], [place] [address] Nov, [facility] [address] [id number] [facility] [place] [address] Nov, [facility] [address] [id number] [address] [place] [address], [place] [address] Nov, [facility] [address] [id number] [address] [place] [address], [place] [address] Nov, [facility] [address] [id number] [address] [place] [address], [place] [address] October, [facility] [address] [id number] [address] [place] [address], [place] [address] October, [facility] [address] [id number] [address] [place] [address], [place] [address] October, [facility] [address] [id number] [address] [place] [address], [place] [address] October, [facility] [address] [id number] [address] [place] [address], [place] [address] October, [facility] [address] [id number] [address] [place] [address], [place] [address] October, [facility] [address] [id number] [address] [place] [address], [place] [address] October, [facility] [address] [id number] [address] [place] [address], [place] [address] October, [facility] [address] [id number] [address] [place] [address], [place] [address] October, [facility] [address] [id number] [address] [place] [address], [place] [address] October, [facility] [address] [id number] [address] [place] [address], [place] [address] October, [facility] [address] [id number] [address] [place] [address], [place] [address] October, [facility] [address] [id number] [address] [place] [address], [place] [address] Sep, [facility] [address] [id number] [facility] [place] [address] Sep, [facility] [address] [id number] [address] [place] [address], [place] [address] Sep, [facility] [address] [id number] [facility] [place] [address] Sep, [facility] [address] [id number] [address] [place] [address], [place] [address] Sep, [facility] [address] [id number] [address] [place] [address], [place] [address] Sep, [facility] [address] [id number] [address] [place] [address], [place] [address] Aug, [facility] [address] [id number] [address] [place] [address], [place] [address] Aug, [facility] [address] [id number] [address] [place] [address], [place] [address] Aug, [facility] [address] [id number] [address] [place] [address], [place] [address] Aug, [facility] [address] [id number] [address] [place] [address], [place] [address] Aug, [facility] [address] [id number] [address] [place] [address], [place] [address] Aug, [facility] [address] [id number] [address] [place] [address], [place] [address] Jul, [facility] [address] [id number] [address] [place] [address], [place] [address] Jul, [facility] [address] [id number] [address] [place] [address], [place] [address] Jul, [facility] [address] [id number] [address] [place] [address], [place] [address] Jul, [facility] [address] [id number] [address] [place] [address], [place] [address] 13 Jul, 2013 [facility] [address] [id number] [address] [place] [address], [place] [address] Jul, [facility] [address] [id number] [address] [place] [address], [place] [address] Jul, [facility] [address] [id number] [address] [place] [address], [place] [address] Jul, [facility] [address] [id number] [address] [place] [address], [place] [address] Jul, [facility] [address] [id number] [address] [place] [address], [place] [address] Jul, [facility] [address] [id number] [address] [place] [address], [place] [address] Jun, [facility] [address] [id number] [address] [place] [address], [place] [address] Jun, [facility] [address] [id number] [address] [place] [address], [place] [address] Jun, [facility] [address] [id number] [address] [place] [address], [place] [address] Jun, [facility] [address] [id number] [address] [place] [address], [place] [address] Jun, [facility] [address] [id number] [address] [place] [address], [place] [address] Jun, [facility] [address] [id number] [address] [place] [address], [place] [address] Jun, [facility] [address] [id number] [address] [place] [address], [place] [address] Jun, [facility] [address] [id number] [address] [place] [address], [place] [address] May, [facility] [address] [id number] [address] [place] [address], [place] [address] May, [facility] [address] [id number] [address] [place] [address], [place] [address] May, [facility] [address] [id number] [address] [place] [address], [place] [address] May, [facility] [address] [id number] [address] [place] [address], [place] [address] May, [facility] [address] [id number] [address] [place] [address], [place] [address] May, [facility] [address] [id number] [address] [place] [address], [place] [address] May, [facility] [address] [id number] [address] [place] [address], [place] [address] May, [facility] [address] [id number] [address] [place] [address], [place] [address] Apr, [facility] [address] [id number] [address] [place] [address] Apr, [facility] [address] [id number] [address] [place] [address], [place] [address] Apr, [facility] [address] [id number] [address] [place] [address] Apr, [facility] [address] [id number] [address] [place] [address] Apr, [facility] [address] [id number] [address] [place] [address] Apr, [facility] [address] [id number] [address] [place] [address], [place] [address] Mar, [facility] [address] [id number] [address] [place] [address] Mar, [facility] [address] [id number] [address] [place] [address], [place] [address] Mar, [facility] [address] [id number] [address] [place] [address], [place] [address] Mar, [facility] [address] [id number] [address] [place] [address], [place] [address] Mar, [facility] [address] [id number] [address] [place] [address], [place] [address] Mar, [facility] [address] [id number] [address] [place] [address], [place] [address] Mar, [facility] [address] [id number] [address] [place] [address], [place] [address] 30 Feb, 2012 [facility] [address] [id number] [address] [place] [address], [place] [address] 30 Feb, 2013 [facility] [address] [id number] [address] [place] [address], [place] [address] 27 Feb, 2013 [facility] [address] [id number] [address] [place] [address], [place] [address] Feb, 2012 [facility] [address] [id number] [address] [place] [address], [place] [address] Feb, [facility] [address] [id number] [address] [place] [address], [place] [address] Feb, [facility] [address] [id number] [address] [place] [address], [place] [address] Jan, [facility] [address] [id number] [address] [place] [address], [place] [address] Jan, [facility] [address] [id number] [address] [place] [address], [place] [address] Jan, [facility] [address] [id number] [address] [place] [address], [place] [address] Jan, [facility] [address] [id number] [address] [place] [address], [place] [address] Jan, [facility] [address] [id number] [address] [place] [address], [place] [address] Jan, [facility] [address] [id number] [address] [place] [address], [place] [address] Jan, [facility] [address] [id number] [address] [place] [address], [place] [address] Jan, [facility] [address] [id number] [address] [place] [address], [place] [address] Jan, [facility] [address] [id number] [address] [place] [address], [place] [address] Dec, [facility] [address] [id number] [address] [place] [address], [place] [address] Dec, [facility] [address] [id number] [address] [place] [address], [place] [address] Dec, [facility] [address] [id number] [address] [place] [address], [place] [address] Dec, [facility] [address] [id number] [address] [place] [address], [place] [address] Dec, [facility] [address] [id number] [address] [place] [address], [place] [address] Dec, [facility] [address] [id number] [address] [place] [address], [place] [address] Dec, [facility] [address] [id number] [address] [place] [address], [place] [address] Dec, [facility] [address] [id number] [address] [place] [address], [place] [address] Dec, [facility] [address] [id number] [address] [place] [address], [place] [address] Dec, [facility] [address] [id number] [address] [place] [address], [place] [address] Dec, [facility] [address] [id number] [address] [place] [address], [place] [address] Dec, [facility] [address] [id number] [address] [place] [address], [place] [address] Dec, [facility] [address] [id number] [address] [place] [address], [place] [address] Nov, [facility] [address] [id number] [address] [place] [address], [place] [address] Nov, [facility] [address] [id number] [address] [place] [address], [place] [address] Nov, [facility] [address] [id number] [address] [place] [address], [place] [address] Nov, [facility] [address] [id number] [address] [place] [address], [place] [address] October, [facility] [address] [id number] [address] [place] [address], [place] [address] October, [facility] [address] [id number] [address] [place] [address], [place] [address] October, [facility] [address] [id number] [address] [place] [address], [place] [address] October, [facility] [address] [id number] [address] [place] [address], [place] [address] October, [facility] [address] [id number] [address] [place] [address], [place] [address] October, [facility] [address] [id number] [address] [place] [address], [place] [address] Sep, [facility] [address] [id number] [address] [place] [address], [place] [address] Sep, [facility] [address] [id number] [address] [place] [address], [place] [address] Sep, [facility] [address] [id number] [address] [place] [address], [place] [address] Sep, [facility] [address] [id number] [address] [place] [address], [place] [address] Sep, [facility] [address] [id number] [facility] [place] [address] 16 Sep, 2012 [facility] [address] [id number] [address] [place] [address], [place] [address] 12 Sep, 2012 [facility] [address] [id number] [address] [place] [address], [place] [address] Sep, [facility] [address] [id number] [address] [place] [address], [place] [address] Sep, [facility] [address] [id number] [address] [place] [address], [place] [address] Sep, [facility] [address] [id number] [address] [place] [address], [place] [address] Sep, [facility] [address] [id number] [address] [place] [address], [place] [address] Aug, [facility] [address] [id number] [address] [place] [address], [place] [address] 25 Aug, 2012 [facility] [address] [id number] [address] [place] [address], [place] [address] 25 Aug, 2012 [facility] [address] [id number] [address] [place] [address], [place] [address] 21 Aug, 2012 [facility] [address] [id number] [address] [place] [address], [place] [address] 19 Aug, 2012 [facility] [address] [id number] [address] [place] [address], [place] [address] 18 Aug, 2012 [facility] [address] [id number] [address] [place] [address], [place] [address] 17 Aug, 2012 [facility] [address] [id number] [address] [place] [address], [place] [address] 15 Aug, 2012 [facility] [address] [id number] [address] [place] [address], [place] [address] 15 Aug, 2012 [facility] [address] [id number] [address] [place] [address], [place] [address] Aug, [facility] [address] [id number] [address] [place] [address], [place] [address] Aug, [facility] [address] [id number] [address] [place] [address], [place] [address] Aug, [facility] [address] [id number] [address] [place] [address], [place] [address] Jul, [facility] [address] [id number] [address] [place] [address], [place] [address] Jul, [facility] [address] [id number] [address] [place] [address], [place] [address] Jul, [facility] [address] [id number] [address] [place] [address], [place] [address] Jul, [facility] [address] [id number] [address] [place] [address], [place] [address] Jul, [facility] [address] [id number] [address] [place] [address], [place] [address] Jul, [facility] [address] [id number] [address] [place] [address], [place] [address] Jul, [facility] [address] [id number] [address] [place] [address], [place] [address] Jul, [facility] [address] [id number] [address] [place] [address], [place] [address] Jul, [facility] [address] [id number] [address] [place] [address], [place] [address] Jul, [facility] [address] [id number] [address] [place] [address], [place] [address] May, [facility] [id number] [id number] [place] [id number] May, [facility] [address] [id number] [address] [place] [address], [place] [address] May, [facility] [address] [id number] [address] [place] [id number] May, [facility] [address] [facility] [id number] [address] [place] [address] May, [facility] [address] [facility] [id number] [address] [place] [address] Apr, [facility] [address] [id number] [place] [id number] Apr, [facility] [address] [facility] [id number] [address] [place] [address] Apr, [facility] [address] [facility] [id number] [address] [place] [id number] Mar, [facility] [address] [id number] [place] [id number] Mar, [facility] [address] [facility] [id number] [address] [place] [id number] Mar, [facility] [address] [id number] [place] [id number] Feb, [facility] [address] [facility] [id number] [address] [place] [id number] Feb, [facility] [address] [facility] [id number] [address] [place] [id number] Feb, [facility] [address] [id number] [place] [id number] Feb, [facility] [address] [id number] [place] [id number] Feb, [facility] [address] [id number] [place] [id number] Jan, [facility] [address] [id number] [address] [place] [address], [place] [address] Jan, [facility] [address] [id number] [place] [id number] Jan, [facility] [address] [id number] [place] [id number] Jan, [facility] [address] [id number] [place] [id number] Jan, [facility] [address] [facility] [id number] [address] [place] [address], [place] [address] Jan, [facility] [address] [facility] [id number] [address] [place] [address], [place] [address] Jan, [facility] [address] [facility] [id number] [address] [place] [address], [place] [address] Aug, [facility] [address] [id number] [place] [id number] Aug, [facility] [address] [facility] [id number] [address] [place] [address], [place] [address] Jul, [facility] [address] [facility] [id number] [address] [place] [address], [place] [address] Jul, [facility] [address] [facility] [id number] [address] [place] [address], [place] [address] Jul, [facility] [address] [id number] [place] [id number] Jul, [facility] [address] [facility] [id number] [address] [place] [address], [place] [address] Jul, [facility] [address] [id number] [place] [id number] Jul, [facility] [address] [facility] [id number] [address] [place] [address], [place] [address] Jul, [facility] [place] [address] [id number] [place] [id number] Jul, [facility] [address] [id number] [place] [id number] Jul, [facility] [address] [id number] [place] [id number] Jul, [facility] [address] [facility] [id number] [address] [place] [address], [place] [address] May, [facility] [address] [id number] [address] [place] [id number] May, [facility] [address] [id number] [address] [place] [id number] May, [facility] [address] [id number] [address] [place] [id number] Apr, [facility] [address] [id number] [address] [place] [id number] Jan, [facility] [address] [id number] [address] [place] [id number] Jan, [facility] [address] [id number] [address] [place] [id number] Dec, [facility] [address] [id number] [address] [place] [id number] Dec, [facility] [address] [id number] [address] [place] [id number] May, [facility] [address] [id number] [address] [place] [id number] Mar, [facility] [address] [id number] [address] [place] [id number] Mar, [facility] [address] [id number] [address] [place] [id number] Jan, IMMUNIZATIONS No Known Immunizations SOCIAL HISTORY Never Assessed REASON FOR VISIT PLAN OF CARE VITAL SIGNS MEDICATIONS Unknown Medications RESULTS No Results PROCEDURES Procedure Date Ordered Result Body Site PROTHROMBIN TIME Jul 22, 2014 INSTRUCTIONS MEDICATIONS ADMINISTERED No Known [...]
--- OUTSIDE RECORDS SUMMARY | 2020-01-28 12:42 | XMS REPORT ---
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 [id number] [address] [place] [address] Apr, [facility] (current) use of 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 Z79.01 [facility] [address] [facility] [id number] [address] [place] [address] Apr, [facility] 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.01 [facility] [address] [facility] [id number] [address] [place] [address] Apr, Cellulitis of unspecified pa rt of limb L03.119 ; Allergic contact dermatitis due to adhesives L23.1 and Chronic pain syndrome G89.4 [facility] [address] [facility] [id number] [address] [place] [address] Apr, [place] [address] [address] [place] [id number] [address] [place] [address] Apr, clerical grader 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.01 ; Cellulitis of unspecified part of limb L03.119 ; Chronic pain syndrome G89.4 and Anxiety F41.9 [facility] [address] [place] [id number] [address] [place] [address] 16 Apr, 2015 [facility] [address] [place] [id number] [place] [address] Apr, [place] [address] [place] [id number] [place] [address] Mar, [place] [address] [address] Mar, [place] [address] [address] Mar, Sore throat J02.9 ; Gastroes ophageal reflux disease without esophagitis K21.9 ; Pseudotumor cerebri G93.2 ; Chronic pain syndrome G89.4 ; Choriocarcinoma C58 ; History of pulmonary embolism Z86.711 ; History of DVT (deep vein thrombosis) Z86.718 ; Anxiety F41.9 and Tachycardia R00.0 [place] [address] [address] Feb, Anxiety 300.00 and Chronic p ain 338.29 [place] [address] [place] [id number] [address] [place] [address] Feb, [place] [address] [place] [id number] [address] [place] [address] Feb, [place] [address] [address] Jan, clerical grader 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 therapy V58.61 and Dysuria 788.1 [place] [address] [place] [id number] [place] [address] Jan, Dysuria 788.1 [facility] [address] [place] [id number] [address] [place] [address] Jan, Anxiety 300.00 and Chronic p ain 338.29 [facility] [address] [place] [id number] [place] [address] Jan, [facility] [address] [address] Jan, [facility] [address] [address] Jan, [place] [address] [address] Dec, Weakness 780.79 [place] [address] [address] Dec, [facility] 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 therapy V58.61 [place] [address] [address] Dec, Palpitations 785.1 ; Tremor 781.0 ; Weakness 780.79 ; [facility] current use of anticoagulant therapy V58.61 and Yeast vaginitis 112.1 [place] [address] [address] [place] [id number] [address] [place] [address] Dec, [place] [address] [address] Dec, Cervicalgia 723.1 ; Tachycar yoseph 785.0 ; Pseudotumor cerebri 348.2 and History of venous thromboembolism V12.51 [place] [address] [address] Nov, [place] [address] [address] Nov, [place] [address] [address] Nov, Tachycardia 785.0 ; Pseudotu mor cerebri 348.2 ; Anxiety 300.00 and History of venous thromboembolism V12.51 [facility] [address] [id number] [address] [place] [address] Nov, [facility] [address] [id number] [address] [place] [address] 18 Nov, 2014 [facility] [address] [id number] [address] [place] [address] Nov, [facility] [address] [id number] [address] [place] [address] Nov, [facility] [address] [facility] [id number] [address] [place] [address] Nov, [facility] [address] [facility] [id number] [address] [place] [address] Nov, [facility] [address] [facility] [id number] [address] [place] [address] Nov, [facility] [address] [facility] [id number] [address] [place] [address] October, [facility] [address] [facility] [id number] [address] [place] [address] October, [facility] [address] [place] [id number] [address] [place] [address] October, Pain in thoracic spine 724.1 and Tachycardia 785.0 [facility] [address] [id number] [address] [place] [address] October, [facility] [address] [id number] [address] [place] [address] October, [facility] [address] [facility] [id number] [address] [place] [address] 14 Sep, 2014 [facility] [address] [facility] [id number] [address] [place] [address] Sep, [facility] [address] [id number] [facility] [place] [address] Aug, [facility] [address] [id number] [address] [place] [address], [place] [address] Aug, [facility] [address] [id number] [address] [place] [address], [place] [address] Aug, [facility] [address] [id number] [address] [place] [address], [place] [address] Aug, [facility] [address] [id number] [address] [place] [address], [place] [address] Aug, [facility] [address] [id number] [address] [place] [address], [place] [address] Aug, [facility] [address] [id number] [address] [place] [address], [place] [address] Aug, [facility] [address] [id number] [address] [place] [address], [place] [address] Aug, [facility] [address] [id number] [address] [place] [address], [place] [address] Aug, [facility] [address] [id number] [address] [place] [address], [place] [address] Aug, [facility] [address] [id number] [address] [place] [address], [place] [address] Aug, [facility] [address] [id number] [address] [place] [address], [place] [address] Aug, 2014 [facility] [address] [id number] [address] [place] [address], [place] [address] Jul, [facility] [address] [id number] [address] [place] [address], [place] [address] Jul, [facility] [address] [id number] [address] [place] [address], [place] [address] Jul, [facility] [address] [id number] [address] [place] [address], [place] [address] Jul, [facility] [address] [id number] [address] [place] [address], [place] [address] 23 Jul, 2014 [facility] [address] [id number] [address] [place] [address], [place] [address] 23 Jul, 2014 [facility] [address] [id number] [address] [place] [address], [place] [address] 23 Jul, 2014 [facility] [address] [id number] [address] [place] [address], [place] [address] 23 Jul, 2014 [facility] [address] [id number] [address] [place] [address], [place] [address] 20 Jul, 2014 [facility] [address] [id number] [address] [place] [address], [place] [address] 20 Jul, 2014 [facility] [address] [id number] [address] [place] [address], [place] [address] 19 Jul, 2014 [facility] [address] [id number] [address] [place] [address], [place] [address] 19 Jul, 2014 [facility] [address] [id number] [address] [place] [address], [place] [address] 17 Jul, 2014 [facility] [address] [id number] [address] [place] [address], [place] [address] 17 Jul, 2014 [facility] [address] [id number] [address] [place] [address], [place] [address] 16 Jul, 2014 [facility] [address] [id number] [address] [place] [address], [place] [address] 16 Jul, 2014 [facility] [address] [id number] [address] [place] [address], [place] [address] 16 Jul, 2014 [facility] [address] [id number] [address] [place] [address] 16 Jul, 2014 [facility] [address] [id number] [address] [place] [address] 13 Jul, 2014 [facility] [address] [id number] [address] [place] [address], [place] [address] Jul, [facility] [address] [id number] [address] [place] [address], [place] [address] Jul, [facility] [address] [id number] [address] [place] [address], [place] [address] Jul, 2014 [facility] [address] [id number] [address] [place] [address], [place] [address] Jul, 2014 [facility] [address] [id number] [address] [place] [address], [place] [address] Jul, [facility] [address] [id number] [address] [place] [address], [place] [address] Jul, [facility] [address] [id number] [address] [place] [address], [place] [address] Jul, [facility] [address] [id number] [address] [place] [address], [place] [address] Jul, [facility] [address] [id number] [address] [place] [address], [place] [address] Jul, [facility] [address] [id number] [address] [place] [address], [place] [address] Jul, [facility] [address] [id number] [address] [place] [address], [place] [address] Jul, [facility] [address] [id number] [address] [place] [address], [place] [address] Jun, [facility] [address] [id number] [address] [place] [address], [place] [address] Jun, [facility] [address] [id number] [address] [place] [address], [place] [address] Jun, [facility] [address] [id number] [address] [place] [address], [place] [address] Jun, [facility] [address] [id number] [address] [place] [address], [place] [address] Jun, [facility] [address] [id number] [address] [place] [address], [place] [address] Jun, [facility] [address] [id number] [address] [place] [address], [place] [address] Jun, [facility] [address] [id number] [address] [place] [address], [place] [address] Jun, [facility] [address] [id number] [address] [place] [address], [place] [address] Jun, [facility] [address] [id number] [address] [place] [address], [place] [address] Jun, [facility] [address] [id number] [address] [place] [address], [place] [address] Jun, [facility] [address] [id number] [address] [place] [address], [place] [address] Jun, [facility] [address] [id number] [address] [place] [address], [place] [address] Jun, [facility] [address] [id number] [address] [place] [address], [place] [address] Jun, [facility] [address] [id number] [address] [place] [address], [place] [address] Jun, [facility] [address] [id number] [address] [place] [address], [place] [address] Jun, [facility] [address] [id number] [address] [place] [address], [place] [address] Jun, [facility] [address] [id number] [address] [place] [address], [place] [address] Jun, [facility] [address] [id number] [address] [place] [address], [place] [address] Jun, [facility] [address] [id number] [address] [place] [address], [place] [address] Jun, [facility] [address] [id number] [address] [place] [address], [place] [address] May, [facility] [address] [id number] [address] [place] [address], [place] [address] May, [facility] [address] [id number] [address] [place] [address], [place] [address] May, [facility] [address] [id number] [address] [place] [address], [place] [address] May, [facility] [address] [id number] [address] [place] [address], [place] [address] May, [facility] [address] [id number] [address] [place] [address], [place] [address] May, [facility] [address] [id number] [address] [place] [address], [place] [address] May, [facility] [address] [id number] [address] [place] [address], [place] [address] May, [facility] [address] [id number] [address] [place] [address], [place] [address] May, [facility] [address] [id number] [address] [place] [address], [place] [address] May, [facility] [address] [id number] [address] [place] [address], [place] [address] May, [facility] [address] [id number] [address] [place] [address], [place] [address] 18 May, 2014 [facility] [address] [id number] [address] [place] [address], [place] [address] 18 May, 2014 [facility] [address] [id number] [address] [place] [address], [place] [address] 17 May, 2014 [facility] [address] [id number] [address] [place] [address], [place] [address] 16 May, 2014 [facility] [address] [id number] [address] [place] [address], [place] [address] 16 May, 2014 [facility] [address] [id number] [address] [place] [address], [place] [address] 15 May, 2014 [facility] [address] [id number] [address] [place] [address], [place] [address] 15 May, 2014 [facility] [address] [id number] [address] [place] [address], [place] [address] May, [facility] [address] [id number] [address] [place] [address], [place] [address] May, [facility] [address] [id number] [address] [place] [address], [place] [address] May, [facility] [address] [id number] [address] [place] [address], [place] [address] May, [facility] [address] [id number] [address] [place] [address], [place] [address] May, [facility] [address] [id number] [address] [place] [address], [place] [address] May, [facility] [address] [id number] [address] [place] [address], [place] [address] May, [facility] [address] [id number] [address] [place] [address], [place] [address] May, [facility] [address] [id number] [address] [place] [address], [place] [address] May, [facility] [address] [id number] [address] [place] [address], [place] [address] May, [facility] [address] [id number] [address] [place] [address], [place] [address] May, [facility] [address] [id number] [address] [place] [address], [place] [address] May, [facility] [address] [id number] [address] [place] [address], [place] [address] May, [facility] [address] [id number] [address] [place] [address], [place] [address] May, [facility] [address] [id number] [address] [place] [address], [place] [address] May, [facility] [address] [id number] [address] [place] [address], [place] [address] May, [facility] [address] [id number] [address] [place] [address], [place] [address] Apr, [facility] [address] [id number] [address] [place] [address], [place] [address] Apr, [facility] [address] [id number] [address] [place] [address], [place] [address] Apr, [facility] [address] [id number] [address] [place] [address], [place] [address] Apr, [facility] [address] [id number] [address] [place] [address], [place] [address] Apr, [facility] [address] [id number] [address] [place] [address], [place] [address] Apr, [facility] [address] [id number] [address] [place] [address], [place] [address] Apr, [facility] [address] [id number] [address] [place] [address], [place] [address] Apr, [facility] [address] [id number] [address] [place] [address], [place] [address] Apr, [facility] [address] [id number] [address] [place] [address], [place] [address] Apr, [facility] [address] [id number] [address] [place] [address], [place] [address] Mar, [facility] [address] [id number] [address] [place] [address], [place] [address] Mar, [facility] [address] [id number] [address] [place] [address] [address] Mar, [facility] [address] [id number] [address] [place] [address], [place] [address] 31 Mar, 2013 [facility] [address] [id number] [address] [place] [address], [place] [address] Mar, [facility] [address] [id number] [address] [place] [address], [place] [address] 30 Mar, 2014 [facility] [address] [id number] [address] [place] [address], [place] [address] Mar, [facility] [address] [id number] [address] [place] [address], [place] [address] Mar, [facility] [address] [id number] [address] [place] [address], [place] [address] Mar, [facility] [address] [id number] [address] [place] [address], [place] [address] Mar, [facility] [address] [id number] [address] [place] [id number] Mar, [facility] [address] [id number] [address] [place] [id number] Mar, [facility] [address] [id number] [address] [place] [id number] Mar, [facility] [address] [id number] [address] [place] [id number] Mar, 2013 [facility] [address] [id number] [address] [place] [id number] Mar, 2013 [facility] [address] [id number] [address] [place] [address] Mar, [facility] [address] [id number] [address] [place] [address] Mar, [facility] [address] [id number] [address] [place] [id number] Mar, 2013 [facility] [address] [id number] [address] [place] [address], [place] [address] 02 Mar, 2013 [facility] [address] [id number] [address] [place] [address], [place] [address] 02 Mar, 2013 [facility] [address] [id number] [address] [place] [address], [place] [address] 05 Sep, 2013 [facility] [address] [id number] [address] [place] [address], [place] [address] 05 Sep, 2013 [facility] [address] [id number] [address] [place] [address], [place] [address] 04 Sep, 2013 [facility] [address] [id number] [address] [place] [address], [place] [address] 04 Sep, 2013 [facility] [address] [id number] [address] [place] [address], [place] [address] 03 Feb, 2013 [facility] [address] [id number] [address] [place] [address], [place] [address] 03 Feb, 2013 [facility] [address] [id number] [address] [place] [address], [place] [address] 02 Feb, 2013 [facility] [address] [id number] [address] [place] [address], [place] [address] Feb, 2013 [facility] [address] [id number] [address] [place] [address], [place] [address] 02 Feb, 2013 [facility] [address] [id number] [address] [place] [address], [place] [address] Feb, 2013 [facility] [address] [id number] [address] [place] [address], [place] [address] Jan, [facility] [address] [id number] [address] [place] [address], [place] [address] Jan, [facility] [address] [id number] [address] [place] [address], [place] [address] Jan, [facility] [address] [id number] [address] [place] [address], [place] [address] Jan, [facility] [address] [id number] [facility] [place] [address] Jan, [facility] [address] [id number] [address] [place] [address], [place] [address] Jan, [facility] [address] [id number] [address] [place] [address], [place] [address] Jan, [facility] [address] [id number] [address] [place] [address], [place] [address] Jan, [facility] [address] [id number] [address] [place] [address], [place] [address] Jan, [facility] [address] [id number] [address] [place] [address], [place] [address] Jan, [facility] [address] [id number] [address] [place] [address], [place] [address] Jan, [facility] [address] [id number] [address] [place] [address], [place] [address] Jan, [facility] [address] [id number] [address] [place] [address], [place] [address] Dec, [facility] [address] [id number] [address] [place] [address], [place] [address] Dec, [facility] [address] [id number] [address] [place] [address], [place] [address] Dec, [facility] [address] [id number] [address] [place] [address], [place] [address] Dec, [facility] [address] [id number] [address] [place] [address], [place] [address] Dec, [facility] [address] [id number] [address] [place] [address], [place] [address] Dec, [facility] [address] [id number] [address] [place] [address], [place] [address] Dec, [facility] [address] [id number] [address] [place] [address], [place] [address] Dec, [facility] [address] [id number] [address] [place] [address] Dec, [facility] [address] [id number] [address] [place] [address], [place] [address] Dec, [facility] [address] [id number] [address] [place] [address], [place] [address] Dec, [facility] [address] [id number] [address] [place] [address], [place] [address] Dec, [facility] [address] [id number] [address] [place] [address], [place] [address] Nov, [facility] [address] [id number] [address] [place] [address], [place] [address] Nov, [facility] [address] [id number] [address] [place] [address], [place] [address] Nov, [facility] [address] [id number] [address] [place] [address], [place] [address] Nov, [facility] [address] [id number] [address] [place] [address], [place] [address] Nov, [facility] [address] [id number] [address] [place] [address], [place] [address] Nov, [facility] [address] [id number] [address] [place] [address], [place] [address] Nov, [facility] [address] [id number] [address] [place] [address], [place] [address] Nov, [facility] [address] [id number] [address] [place] [address], [place] [address] Nov, [facility] [address] [id number] [address] [place] [address], [place] [address] Nov, [facility] [address] [id number] [address] [place] [address], [place] [address] Nov, [facility] [address] [id number] [facility] [place] [address] Nov, [facility] [address] [id number] [address] [place] [address], [place] [address] Nov, [facility] [address] [id number] [address] [place] [address], [place] [address] Nov, [facility] [address] [id number] [address] [place] [address], [place] [address] October, [facility] [address] [id number] [address] [place] [address], [place] [address] October, [facility] [address] [id number] [address] [place] [address], [place] [address] October, [facility] [address] [id number] [address] [place] [address], [place] [address] October, [facility] [address] [id number] [address] [place] [address], [place] [address] October, [facility] [address] [id number] [address] [place] [address], [place] [address] October, [facility] [address] [id number] [address] [place] [address], [place] [address] October, [facility] [address] [id number] [address] [place] [address], [place] [address] October, [facility] [address] [id number] [address] [place] [address], [place] [address] October, [facility] [address] [id number] [address] [place] [address], [place] [address] October, [facility] [address] [id number] [address] [place] [address], [place] [address] October, [facility] [address] [id number] [address] [place] [address], [place] [address] October, [facility] [address] [id number] [address] [place] [address], [place] [address] Sep, [facility] [address] [id number] [facility] [place] [address] Sep, [facility] [address] [id number] [address] [place] [address], [place] [address] Sep, [facility] [address] [id number] [facility] [place] [address] Sep, [facility] [address] [id number] [address] [place] [address], [place] [address] Sep, [facility] [address] [id number] [address] [place] [address], [place] [address] Sep, [facility] [address] [id number] [address] [place] [address], [place] [address] Aug, [facility] [address] [id number] [address] [place] [address], [place] [address] Aug, [facility] [address] [id number] [address] [place] [address], [place] [address] Aug, [facility] [address] [id number] [address] [place] [address], [place] [address] Aug, [facility] [address] [id number] [address] [place] [address], [place] [address] Aug, [facility] [address] [id number] [address] [place] [address], [place] [address] Aug, [facility] [address] [id number] [address] [place] [address], [place] [address] Jul, [facility] [address] [id number] [address] [place] [address], [place] [address] Jul, [facility] [address] [id number] [address] [place] [address], [place] [address] Jul, [facility] [address] [id number] [address] [place] [address], [place] [address] Jul, [facility] [address] [id number] [address] [place] [address], [place] [address] 13 Jul, 2013 [facility] [address] [id number] [address] [place] [address], [place] [address] Jul, [facility] [address] [id number] [address] [place] [address], [place] [address] Jul, [facility] [address] [id number] [address] [place] [address], [place] [address] Jul, [facility] [address] [id number] [address] [place] [address], [place] [address] Jul, [facility] [address] [id number] [address] [place] [address], [place] [address] Jul, [facility] [address] [id number] [address] [place] [address], [place] [address] Jun, [facility] [address] [id number] [address] [place] [address], [place] [address] Jun, [facility] [address] [id number] [address] [place] [address], [place] [address] Jun, [facility] [address] [id number] [address] [place] [address], [place] [address] Jun, [facility] [address] [id number] [address] [place] [address], [place] [address] Jun, [facility] [address] [id number] [address] [place] [address], [place] [address] Jun, [facility] [address] [id number] [address] [place] [address], [place] [address] Jun, [facility] [address] [id number] [address] [place] [address], [place] [address] Jun, [facility] [address] [id number] [address] [place] [address], [place] [address] May, [facility] [address] [id number] [address] [place] [address], [place] [address] May, [facility] [address] [id number] [address] [place] [address], [place] [address] May, [facility] [address] [id number] [address] [place] [address], [place] [address] May, [facility] [address] [id number] [address] [place] [address], [place] [address] May, [facility] [address] [id number] [address] [place] [address], [place] [address] May, [facility] [address] [id number] [address] [place] [address], [place] [address] May, [facility] [address] [id number] [address] [place] [address], [place] [address] May, [facility] [address] [id number] [address] [place] [address], [place] [address] Apr, [facility] [address] [id number] [address] [place] [address] Apr, [facility] [address] [id number] [address] [place] [address], [place] [address] Apr, [facility] [address] [id number] [address] [place] [address] Apr, [facility] [address] [id number] [address] [place] [address] Apr, [facility] [address] [id number] [address] [place] [address] Apr, [facility] [address] [id number] [address] [place] [address], [place] [address] Mar, [facility] [address] [id number] [address] [place] [address] Mar, [facility] [address] [id number] [address] [place] [address], [place] [address] Mar, [facility] [address] [id number] [address] [place] [address], [place] [address] Mar, [facility] [address] [id number] [address] [place] [address], [place] [address] Mar, [facility] [address] [id number] [address] [place] [address], [place] [address] Mar, [facility] [address] [id number] [address] [place] [address], [place] [address] Mar, [facility] [address] [id number] [address] [place] [address], [place] [address] 30 Feb, 2012 [facility] [address] [id number] [address] [place] [address], [place] [address] 30 Feb, 2013 [facility] [address] [id number] [address] [place] [address], [place] [address] 27 Feb, 2013 [facility] [address] [id number] [address] [place] [address], [place] [address] Feb, 2012 [facility] [address] [id number] [address] [place] [address], [place] [address] Feb, [facility] [address] [id number] [address] [place] [address], [place] [address] Feb, [facility] [address] [id number] [address] [place] [address], [place] [address] Jan, [facility] [address] [id number] [address] [place] [address], [place] [address] Jan, [facility] [address] [id number] [address] [place] [address], [place] [address] Jan, [facility] [address] [id number] [address] [place] [address], [place] [address] Jan, [facility] [address] [id number] [address] [place] [address], [place] [address] Jan, [facility] [address] [id number] [address] [place] [address], [place] [address] Jan, [facility] [address] [id number] [address] [place] [address], [place] [address] Jan, [facility] [address] [id number] [address] [place] [address], [place] [address] Jan, [facility] [address] [id number] [address] [place] [address], [place] [address] Jan, [facility] [address] [id number] [address] [place] [address], [place] [address] Dec, [facility] [address] [id number] [address] [place] [address], [place] [address] Dec, [facility] [address] [id number] [address] [place] [address], [place] [address] Dec, [facility] [address] [id number] [address] [place] [address], [place] [address] Dec, [facility] [address] [id number] [address] [place] [address], [place] [address] Dec, [facility] [address] [id number] [address] [place] [address], [place] [address] Dec, [facility] [address] [id number] [address] [place] [address], [place] [address] Dec, [facility] [address] [id number] [address] [place] [address], [place] [address] Dec, [facility] [address] [id number] [address] [place] [address], [place] [address] Dec, [facility] [address] [id number] [address] [place] [address], [place] [address] Dec, [facility] [address] [id number] [address] [place] [address], [place] [address] Dec, [facility] [address] [id number] [address] [place] [address], [place] [address] Dec, [facility] [address] [id number] [address] [place] [address], [place] [address] Dec, [facility] [address] [id number] [address] [place] [address], [place] [address] Nov, [facility] [address] [id number] [address] [place] [address], [place] [address] Nov, [facility] [address] [id number] [address] [place] [address], [place] [address] Nov, [facility] [address] [id number] [address] [place] [address], [place] [address] Nov, [facility] [address] [id number] [address] [place] [address], [place] [address] October, [facility] [address] [id number] [address] [place] [address], [place] [address] October, [facility] [address] [id number] [address] [place] [address], [place] [address] October, [facility] [address] [id number] [address] [place] [address], [place] [address] October, [facility] [address] [id number] [address] [place] [address], [place] [address] October, [facility] [address] [id number] [address] [place] [address], [place] [address] October, [facility] [address] [id number] [address] [place] [address], [place] [address] Sep, [facility] [address] [id number] [address] [place] [address], [place] [address] Sep, [facility] [address] [id number] [address] [place] [address], [place] [address] Sep, [facility] [address] [id number] [address] [place] [address], [place] [address] Sep, [facility] [address] [id number] [address] [place] [address], [place] [address] Sep, [facility] [address] [id number] [facility] [place] [address] 16 Sep, 2012 [facility] [address] [id number] [address] [place] [address], [place] [address] 12 Sep, 2012 [facility] [address] [id number] [address] [place] [address], [place] [address] Sep, [facility] [address] [id number] [address] [place] [address], [place] [address] Sep, [facility] [address] [id number] [address] [place] [address], [place] [address] Sep, [facility] [address] [id number] [address] [place] [address], [place] [address] Sep, [facility] [address] [id number] [address] [place] [address], [place] [address] Aug, [facility] [address] [id number] [address] [place] [address], [place] [address] 25 Aug, 2012 [facility] [address] [id number] [address] [place] [address], [place] [address] 25 Aug, 2012 [facility] [address] [id number] [address] [place] [address], [place] [address] 21 Aug, 2012 [facility] [address] [id number] [address] [place] [address], [place] [address] 19 Aug, 2012 [facility] [address] [id number] [address] [place] [address], [place] [address] 18 Aug, 2012 [facility] [address] [id number] [address] [place] [address], [place] [address] 17 Aug, 2012 [facility] [address] [id number] [address] [place] [address], [place] [address] 15 Aug, 2012 [facility] [address] [id number] [address] [place] [address], [place] [address] 15 Aug, 2012 [facility] [address] [id number] [address] [place] [address], [place] [address] Aug, [facility] [address] [id number] [address] [place] [address], [place] [address] Aug, [facility] [address] [id number] [address] [place] [address], [place] [address] Aug, [facility] [address] [id number] [address] [place] [address], [place] [address] Jul, [facility] [address] [id number] [address] [place] [address], [place] [address] Jul, [facility] [address] [id number] [address] [place] [address], [place] [address] Jul, [facility] [address] [id number] [address] [place] [address], [place] [address] Jul, [facility] [address] [id number] [address] [place] [address], [place] [address] Jul, [facility] [address] [id number] [address] [place] [address], [place] [address] Jul, [facility] [address] [id number] [address] [place] [address], [place] [address] Jul, [facility] [address] [id number] [address] [place] [address], [place] [address] Jul, [facility] [address] [id number] [address] [place] [address], [place] [address] Jul, [facility] [address] [id number] [address] [place] [address], [place] [address] Jul, [facility] [address] [id number] [address] [place] [address], [place] [address] May, [facility] [address] [id number] [place] [id number] May, [facility] [address] [id number] [address] [place] [address], [place] [address] May, [facility] [address] [id number] [address] [place] [address] May, [facility] [address] [facility] [id number] [address] [place] [address] May, [facility] [address] [facility] [id number] [address] [place] [address] Apr, [facility] [address] [id number] [place] [id number] Apr, [facility] [address] [facility] [id number] [address] [place] [address] Apr, [facility] [address] [facility] [id number] [address] [place] [phone] Mar, [facility] [address] [id number] [place] [id number] Mar, [facility] [address] [facility] [id number] [address] [place] [phone] Mar, [facility] [address] [id number] [place] [id number] Feb, [facility] [address] [facility] [id number] [address] [place] [phone] Feb, [facility] [address] [facility] [id number] [address] [place] [phone] Feb, [facility] [address] [id number] [place] [id number] Feb, [facility] [address] [id number] [place] [id number] Feb, [facility] [address] [id number] [place] [id number] Jan, [facility] [address] [id number] [address] [place] [address], [place] [phone] Jan, [facility] [address] [id number] [place] [id number] Jan, [facility] [address] [id number] [place] [id number] Jan, [facility] [address] [id number] [place] [id number] Jan, [facility] [address] [facility] [id number] [address] [place] [address], [place] [phone] Jan, [facility] [address] [facility] [id number] [address] [place] [address], [place] [phone] Jan, [facility] [address] [facility] [id number] [address] [place] [address], [place] [id number] Aug, [facility] [address] [id number] [place] [id number] Aug, [facility] [address] [facility] [id number] [address] [place] [address], [place] [id number] Jul, [facility] [address] [facility] [id number] [address] [place] [address], [place] [id number] Jul, [facility] [address] [facility] [id number] [address] [place] [address], [place] [id number] Jul, [facility] [address] [id number] [place] [id number] Jul, [facility] [address] [facility] [id number] [address] [place] [address], [place] [id number] Jul, [facility] [address] [id number] [place] [id number] Jul, [facility] [address] [facility] [id number] [address] [place] [address], [place] [id number] Jul, [facility] [address] [id number] [place] [id number] Jul, [facility] [address] [id number] [place] [id number] Jul, [facility] [address] [id number] [place] [id number] Jul, [facility] [address] [facility] [id number] [address] [place] [address], [place] [id number] May, [facility] [address] [id number] [address] [place] [phone] May, [facility] [address] [id number] [address] [place] [phone] May, [facility] [address] [id number] [address] [place] [id number] Apr, [facility] [address] [id number] [address] [place] [phone] Jan, [facility] [address] [id number] [address] [place] [phone] Jan, [facility] [address] [id number] [address] [place] [phone] Dec, [facility] [address] [id number] [address] [place] [phone] Dec, [facility] [address] [id number] [address] [place] [phone] May, [facility] [address] [id number] [address] [place] [phone] Mar, [facility] [address] [id number] [address] [place] [id number] Mar, [facility] [address] [id number] [address] [place] [phone] Jan, IMMUNIZATIONS No Known Immunizations SOCIAL HISTORY [...]
--- OUTSIDE RECORDS SUMMARY | 2020-01-28 12:43 | XMS REPORT ---
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 537735999 Problem History of venous thromboembolism V12.51 Active 843126785 Problem Cellulitis of unspecified part of limb L03.119 Active 944620528 Problem Gastroesophageal reflux disease without esophagitis K21.9 Active 441301403 Problem History of pulmonary embolism Z86.711 Active 058591500 Problem Pseudotumor cerebri G93.2 Active 71268836 Problem History of DVT (deep vein thrombosis) Z86.718 Active 979556920 ALLERGIES No Information ENCOUNTERS Encounter Location Date Diagnosis [place] [id number] [facility] [id number] [address] [place] [id number] Apr, detention (current) use of 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 Z79.01 [facility] [address] [facility] [id number] [address] [place] [id number] Apr, detention 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.01 [facility] [address] [facility] [id number] [address] [place] [id number] Apr, Cellulitis of unspecified pa rt of limb L03.119 ; Allergic contact dermatitis due to adhesives L23.1 and Chronic pain syndrome G89.4 [facility] [address] [facility] [id number] [address] [place] [id number] Apr, [place] [address] [place] [id number] [address] [place] [address] Apr, 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9 ; Pseudotumor cerebri G93.2 ; Chronic pain syndrome G89.4 ; Choriocarcinoma C58 ; History of pulmonary embolism Z86.711 ; History of DVT (deep vein thrombosis) Z86.718 ; Anxiety F41.9 and Tachycardia R00.0 [place] [address] [address] Feb, Anxiety 300.00 and Chronic p ain 338.29 [place] [address] [place] [id number] [address] [place] [phone] Feb, [place] [address] [place] [id number] [address] [place] [address] Feb, [place] [address] [address] Jan, 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 V58.61 and Dysuria 788.1 [place] [address] [place] [id number] [place] [address] Jan, Dysuria 788.1 [facility] [address] [place] [id number] [address] [place] [address] Jan, Anxiety 300.00 and Chronic p ain 338.29 [facility] [address] [place] [id number] [place] [address] Jan, [facility] [address] [address] Jan, [facility] [address] [address] Jan, [place] [address] [address] Dec, Weakness 780.79 [place] [address] [address] Dec, detention 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 therapy V58.61 [place] [address] [address] Dec, Palpitations 785.1 ; Tremor 781.0 ; Weakness 780.79 ; detention current use of anticoagulant therapy V58.61 and Yeast vaginitis 112.1 [place] [address] [place] [id number] [address] [place] [address] Dec, [place] [address] [address] Dec, Cervicalgia 723.1 ; Tachycar yoseph 785.0 ; Pseudotumor cerebri 348.2 and History of venous thromboembolism V12.51 [place] [address] [address] Nov, [place] [address] [address] Nov, [place] [address] [address] Nov, Tachycardia 785.0 ; Pseudotu mor cerebri 348.2 ; Anxiety 300.00 and History of venous thromboembolism V12.51 [facility] [address] [id number] [address] [place] [address] Nov, [facility] [address] [id number] [address] [place] [id number] 18 Nov, 2014 [facility] [address] [id number] [address] [place] [id number] Nov, [facility] [address] [id number] [address] [place] [id number] Nov, [facility] [address] [facility] [id number] [address] [place] [id number] Nov, [facility] [address] [facility] [id number] [address] [place] [phone] Nov, [facility] [address] [facility] [id number] [address] [place] [address] Nov, [facility] [address] [facility] [id number] [address] [place] [phone] October, [facility] [address] [facility] [id number] [address] [place] [phone] October, [facility] [address] [place] [id number] [address] [place] [id number] October, Pain in thoracic spine 724.1 and Tachycardia 785.0 [facility] [address] [id number] [address] [place] [id number] October, [facility] [address] [id number] [address] [place] [phone] October, [facility] [address] [facility] [id number] [address] [place] [id number] 14 Sep, 2014 [facility] [address] [facility] [id number] [address] [place] [phone] Sep, [facility] [address] [id number] [facility] [place] [address] Aug, [facility] [address] [id number] [address] [place] [address], [place] [address] Aug, [facility] [address] [id number] [address] [place] [address], [place] [address] Aug, [facility] [address] [id number] [address] [place] [address], [place] [address] Aug, [facility] [address] [id number] [address] [place] [address], [place] [address] Aug, [facility] [address] [id number] [address] [place] [address], [place] [address] Aug, [facility] [address] [id number] [address] [place] [address], [place] [address] Aug, [facility] [address] [id number] [address] [place] [address], [place] [address] Aug, [facility] [address] [id number] [address] [place] [address], [place] [address] Aug, [facility] [address] [id number] [address] [place] [address], [place] [address] Aug, [facility] [address] [id number] [address] [place] [address], [place] [address] Aug, [facility] [address] [id number] [address] [place] [address], [place] [address] Aug, 2014 [facility] [address] [id number] [address] [place] [address], [place] [address] Jul, [facility] [address] [id number] [address] [place] [address], [place] [address] Jul, [facility] [address] [id number] [address] [place] [address], [place] [address] Jul, [facility] [address] [id number] [address] [place] [address], [place] [address] Jul, [facility] [address] [id number] [address] [place] [address], [place] [address] 23 Jul, 2014 [facility] [address] [id number] [address] [place] [address], [place] [address] 23 Jul, 2014 [facility] [address] [id number] [address] [place] [address], [place] [address] 23 Jul, 2014 [facility] [address] [id number] [address] [place] [address], [place] [address] 23 Jul, 2014 [facility] [address] [id number] [address] [place] [address], [place] [address] 20 Jul, 2014 [facility] [address] [id number] [address] [place] [address], [place] [address] 20 Jul, 2014 [facility] [address] [id number] [address] [place] [address], [place] [address] 19 Jul, 2014 [facility] [address] [id number] [address] [place] [address], [place] [address] 19 Jul, 2014 [facility] [address] [id number] [address] [place] [address], [place] [address] 17 Jul, 2014 [facility] [address] [id number] [address] [place] [address], [place] [address] 17 Jul, 2014 [facility] [address] [id number] [address] [place] [address], [place] [address] 16 Jul, 2014 [facility] [address] [id number] [address] [place] [address], [place] [address] 16 Jul, 2014 [facility] [address] [id number] [address] [place] [address], [place] [address] 16 Jul, 2014 [facility] [address] [id number] [address] [place] [id number] 16 Jul, 2014 [facility] [address] [id number] [address] [place] [id number] 13 Jul, 2014 [facility] [address] [id number] [address] [place] [address], [place] [address] Jul, [facility] [address] [id number] [address] [place] [address], [place] [address] Jul, [facility] [address] [id number] [address] [place] [address], [place] [address] Jul, 2014 [facility] [address] [id number] [address] [place] [address], [place] [address] Jul, 2014 [facility] [address] [id number] [address] [place] [address], [place] [address] Jul, [facility] [address] [id number] [address] [place] [address], [place] [address] Jul, [facility] [address] [id number] [address] [place] [address], [place] [address] Jul, [facility] [address] [id number] [address] [place] [address], [place] [address] Jul, [facility] [address] [id number] [address] [place] [address], [place] [address] Jul, [facility] [address] [id number] [address] [place] [address], [place] [address] Jul, [facility] [address] [id number] [address] [place] [address], [place] [address] Jul, [facility] [address] [id number] [address] [place] [address], [place] [address] Jun, [facility] [address] [id number] [address] [place] [address], [place] [address] Jun, [facility] [address] [id number] [address] [place] [address], [place] [address] Jun, [facility] [address] [id number] [address] [place] [address], [place] [address] Jun, [facility] [address] [id number] [address] [place] [address], [place] [address] Jun, [facility] [address] [id number] [address] [place] [address], [place] [address] Jun, [facility] [address] [id number] [address] [place] [address], [place] [address] Jun, [facility] [address] [id number] [address] [place] [address], [place] [address] Jun, [facility] [address] [id number] [address] [place] [address], [place] [address] Jun, [facility] [address] [id number] [address] [place] [address], [place] [address] Jun, [facility] [address] [id number] [address] [place] [address], [place] [address] Jun, [facility] [address] [id number] [address] [place] [address], [place] [address] Jun, [facility] [address] [id number] [address] [place] [address], [place] [address] Jun, [facility] [address] [id number] [address] [place] [address], [place] [address] Jun, [facility] [address] [id number] [address] [place] [address], [place] [address] Jun, [facility] [address] [id number] [address] [place] [address], [place] [address] Jun, [facility] [address] [id number] [address] [place] [address], [place] [address] Jun, [facility] [address] [id number] [address] [place] [address], [place] [address] Jun, [facility] [address] [id number] [address] [place] [address], [place] [address] Jun, [facility] [address] [id number] [address] [place] [address], [place] [address] Jun, [facility] [address] [id number] [address] [place] [address], [place] [address] May, [facility] [address] [id number] [address] [place] [address], [place] [address] May, [facility] [address] [id number] [address] [place] [address], [place] [address] May, [facility] [address] [id number] [address] [place] [address], [place] [address] May, [facility] [address] [id number] [address] [place] [address], [place] [address] May, [facility] [address] [id number] [address] [place] [address], [place] [address] May, [facility] [address] [id number] [address] [place] [address], [place] [address] May, [facility] [address] [id number] [address] [place] [address], [place] [address] May, [facility] [address] [id number] [address] [place] [address], [place] [address] May, [facility] [address] [id number] [address] [place] [address], [place] [address] May, [facility] [address] [id number] [address] [place] [address], [place] [address] May, [facility] [address] [id number] [address] [place] [address], [place] [address] 18 May, 2014 [facility] [address] [id number] [address] [place] [address], [place] [address] 18 May, 2014 [facility] [address] [id number] [address] [place] [address], [place] [address] 17 May, 2014 [facility] [address] [id number] [address] [place] [address], [place] [address] 16 May, 2014 [facility] [address] [id number] [address] [place] [address], [place] [address] 16 May, 2014 [facility] [address] [id number] [address] [place] [address], [place] [address] 15 May, 2014 [facility] [address] [id number] [address] [place] [address], [place] [address] 15 May, 2014 [facility] [address] [id number] [address] [place] [address], [place] [address] May, [facility] [address] [id number] [address] [place] [address], [place] [address] May, [facility] [address] [id number] [address] [place] [address], [place] [address] May, [facility] [address] [id number] [address] [place] [address], [place] [address] May, [facility] [address] [id number] [address] [place] [address], [place] [address] May, [facility] [address] [id number] [address] [place] [address], [place] [address] May, [facility] [address] [id number] [address] [place] [address], [place] [address] May, [facility] [address] [id number] [address] [place] [address], [place] [address] May, [facility] [address] [id number] [address] [place] [address], [place] [address] May, [facility] [address] [id number] [address] [place] [address], [place] [address] May, [facility] [address] [id number] [address] [place] [address], [place] [address] May, [facility] [address] [id number] [address] [place] [address], [place] [address] May, [facility] [address] [id number] [address] [place] [address], [place] [address] May, [facility] [address] [id number] [address] [place] [address], [place] [address] May, [facility] [address] [id number] [address] [place] [address], [place] [address] May, [facility] [address] [id number] [address] [place] [address], [place] [address] May, [facility] [address] [id number] [address] [place] [address], [place] [address] Apr, [facility] [address] [id number] [address] [place] [address], [place] [address] Apr, [facility] [address] [id number] [address] [place] [address], [place] [address] Apr, [facility] [address] [id number] [address] [place] [address], [place] [address] Apr, [facility] [address] [id number] [address] [place] [address], [place] [address] Apr, [facility] [address] [id number] [address] [place] [address], [place] [address] Apr, [facility] [address] [id number] [address] [place] [address], [place] [address] Apr, [facility] [address] [id number] [address] [place] [address], [place] [address] Apr, [facility] [address] [id number] [address] [place] [address], [place] [address] Apr, [facility] [address] [id number] [address] [place] [address], [place] [id number] Apr, [facility] [address] [id number] [address] [place] [address], [place] [address] Mar, [facility] [address] [id number] [address] [place] [address], [place] [id number] Mar, [facility] [address] [id number] [address] [place] [address] [address] Mar, [facility] [address] [id number] [address] [place] [address], [place] [address] 31 Mar, 2013 [facility] [address] [id number] [address] [place] [address], [place] [address] Mar, [facility] [address] [id number] [address] [place] [address], [place] [id number] 30 Mar, 2014 [facility] [address] [id number] [address] [place] [address], [place] [address] Mar, [facility] [address] [id number] [address] [place] [address], [place] [address] Mar, [facility] [address] [id number] [address] [place] [address], [place] [address] Mar, [facility] [address] [id number] [address] [place] [address], [place] [address] Mar, [facility] [address] [id number] [address] [place] [id number] Mar, [facility] [address] [id number] [address] [place] [id number] Mar, [facility] [address] [id number] [address] [place] [id number] Mar, [facility] [address] [id number] [address] [place] [id number] Mar, 2013 [facility] [address] [id number] [address] [place] [id number] Mar, 2013 [facility] [address] [id number] [address] [place] [id number] Mar, [facility] [address] [id number] [address] [place] [id number] Mar, [facility] [address] [id number] [address] [place] [id number] Mar, 2013 [facility] [address] [id number] [address] [place] [address], [place] [id number] 02 Mar, 2013 [facility] [address] [id number] [address] [place] [address], [place] [address] 02 Mar, 2013 [facility] [address] [id number] [address] [place] [address], [place] [address] 05 Sep, 2013 [facility] [address] [id number] [address] [place] [address], [place] [address] 05 Sep, 2013 [facility] [address] [id number] [address] [place] [address], [place] [id number] 04 Sep, 2013 [facility] [address] [id number] [address] [place] [address], [place] [address] 04 Sep, 2013 [facility] [address] [id number] [address] [place] [address], [place] [address] 03 Feb, 2013 [facility] [address] [id number] [address] [place] [address], [place] [address] 03 Feb, 2013 [facility] [address] [id number] [address] [place] [address], [place] [id number] 02 Feb, 2013 [facility] [address] [id number] [address] [place] [address], [place] [address] Feb, 2013 [facility] [address] [id number] [address] [place] [address], [place] [address] 02 Feb, 2013 [facility] [address] [id number] [address] [place] [address], [place] [address] Feb, 2013 [facility] [address] [id number] [address] [place] [address], [place] [address] Jan, [facility] [address] [id number] [address] [place] [address], [place] [address] Jan, [facility] [address] [id number] [address] [place] [address], [place] [id number] Jan, [facility] [address] [id number] [address] [place] [address], [place] [address] Jan, [facility] [address] [id number] [facility] [place] [address] Jan, [facility] [address] [id number] [address] [place] [address], [place] [address] Jan, [facility] [address] [id number] [address] [place] [address], [place] [address] Jan, [facility] [address] [id number] [address] [place] [address], [place] [address] Jan, [facility] [address] [id number] [address] [place] [address], [place] [address] Jan, [facility] [address] [id number] [address] [place] [address], [place] [address] Jan, [facility] [address] [id number] [address] [place] [place] [address], [place] [address] Jan, [facility] [address] [id number] [address] [place] [address], [place] [address] Jan, [facility] [address] [id number] [address] [place] [address], [place] [address] Dec, [facility] [address] [id number] [address] [place] [address], [place] [address] Dec, [facility] [address] [id number] [address] [place] [address], [place] [address] Dec, [facility] [address] [id number] [address] [place] [address], [place] [address] Dec, [facility] [address] [id number] [address] [place] [address], [place] [address] Dec, [facility] [address] [id number] [address] [place] [address], [place] [address] Dec, [facility] [address] [id number] [address] [place] [address], [place] [address] Dec, [facility] [address] [id number] [address] [place] [address], [place] [address] Dec, [facility] [address] [id number] [facility] [place] [address] Dec, [facility] [address] [id number] [address] [place] [address], [place] [address] Dec, [facility] [address] [id number] [address] [place] [address], [place] [address] Dec, [facility] [address] [id number] [address] [place] [address], [place] [address] Dec, [facility] [address] [id number] [address] [place] [address], [place] [address] Nov, [facility] [address] [id number] [address] [place] [address], [place] [address] Nov, [facility] [address] [id number] [address] [place] [address], [place] [address] Nov, [facility] [address] [id number] [address] [place] [address], [place] [address] Nov, [facility] [address] [id number] [address] [place] [address], [place] [address] Nov, [facility] [address] [id number] [address] [place] [address], [place] [address] Nov, [facility] [address] [id number] [address] [place] [address], [place] [address] Nov, [facility] [address] [id number] [address] [place] [address], [place] [address] Nov, [facility] [address] [id number] [address] [place] [address], [place] [address] Nov, [facility] [address] [id number] [address] [place] [address], [place] [address] Nov, [facility] [address] [id number] [address] [place] [address], [place] [address] Nov, [facility] [address] [id number] [facility] [place] [address] Nov, [facility] [address] [id number] [address] [place] [address], [place] [address] Nov, [facility] [address] [id number] [address] [place] [address], [place] [address] Nov, [facility] [address] [id number] [address] [place] [address], [place] [address] October, [facility] [address] [id number] [address] [place] [address], [place] [address] October, [facility] [address] [id number] [address] [place] [address], [place] [address] October, [facility] [address] [id number] [address] [place] [address], [place] [address] October, [facility] [address] [id number] [address] [place] [address], [place] [address] October, [facility] [address] [id number] [address] [place] [address], [place] [address] October, [facility] [address] [id number] [address] [place] [address], [place] [address] October, [facility] [address] [id number] [address] [place] [address], [place] [address] October, [facility] [address] [id number] [address] [place] [address], [place] [address] October, [facility] [address] [id number] [address] [place] [address], [place] [address] October, [facility] [address] [id number] [address] [place] [address], [place] [address] October, [facility] [address] [id number] [address] [place] [address], [place] [address] October, [facility] [address] [id number] [address] [place] [address], [place] [address] Sep, [facility] [address] [id number] [facility] [place] [address] Sep, [facility] [address] [id number] [address] [place] [address], [place] [address] Sep, [facility] [address] [id number] [facility] [place] [address] Sep, [facility] [address] [id number] [address] [place] [address], [place] [address] Sep, [facility] [address] [id number] [address] [place] [address], [place] [address] Sep, [facility] [address] [id number] [address] [place] [address], [place] [address] Aug, [facility] [address] [id number] [address] [place] [address], [place] [address] Aug, [facility] [address] [id number] [address] [place] [address], [place] [address] Aug, [facility] [address] [id number] [address] [place] [address], [place] [address] Aug, [facility] [address] [id number] [address] [place] [address], [place] [address] Aug, [facility] [address] [id number] [address] [place] [address], [place] [address] Aug, [facility] [address] [id number] [address] [place] [address], [place] [address] Jul, [facility] [address] [id number] [address] [place] [address], [place] [address] Jul, [facility] [address] [id number] [address] [place] [address], [place] [address] Jul, [facility] [address] [id number] [address] [place] [address], [place] [address] Jul, [facility] [address] [id number] [address] [place] [address], [place] [address] 13 Jul, 2013 [facility] [address] [id number] [address] [place] [address], [place] [address] Jul, [facility] [address] [id number] [address] [place] [address], [place] [address] Jul, [facility] [address] [id number] [address] [place] [address], [place] [address] Jul, [facility] [address] [id number] [address] [place] [address], [place] [address] Jul, [facility] [address] [id number] [address] [place] [address], [place] [address] Jul, [facility] [address] [id number] [address] [place] [address], [place] [address] Jun, [facility] [address] [id number] [address] [place] [address], [place] [address] Jun, [facility] [address] [id number] [address] [place] [address], [place] [address] Jun, [facility] [address] [id number] [address] [place] [address], [place] [address] Jun, [facility] [address] [id number] [address] [place] [address], [place] [address] Jun, [facility] [address] [id number] [address] [place] [address], [place] [address] Jun, [facility] [address] [id number] [address] [place] [address], [place] [address] Jun, [facility] [address] [id number] [address] [place] [address], [place] [address] Jun, [facility] [address] [id number] [address] [place] [address], [place] [address] May, [facility] [address] [id number] [address] [place] [address], [place] [address] May, [facility] [address] [id number] [address] [place] [address], [place] [address] May, [facility] [address] [id number] [address] [place] [address], [place] [address] May, [facility] [address] [id number] [address] [place] [address], [place] [address] May, [facility] [address] [id number] [address] [place] [address], [place] [address] May, [facility] [address] [id number] [address] [place] [address], [place] [address] May, [facility] [address] [id number] [address] [place] [address], [place] [address] May, [facility] [address] [id number] [address] [place] [address], [place] [address] Apr, [facility] [address] [id number] [address] [place] [id number] Apr, [facility] [address] [id number] [address] [place] [address], [place] [address] Apr, [facility] [address] [id number] [address] [place] [id number] Apr, [facility] [address] [id number] [address] [place] [id number] Apr, [facility] [address] [id number] [address] [place] [address] Apr, [facility] [address] [id number] [address] [place] [address], [place] [address] Mar, [facility] [address] [id number] [address] [place] [id number] Mar, [facility] [address] [id number] [address] [place] [address], [place] [address] Mar, [facility] [address] [id number] [address] [place] [address], [place] [address] Mar, [facility] [address] [id number] [address] [place] [address], [place] [address] Mar, [facility] [address] [id number] [address] [place] [address], [place] [address] Mar, [facility] [address] [id number] [address] [place] [address], [place] [address] Mar, [facility] [address] [id number] [address] [place] [address], [place] [address] 30 Feb, 2012 [facility] [address] [id number] [address] [place] [address], [place] [address] 30 Feb, 2013 [facility] [address] [id number] [address] [place] [address], [place] [address] 27 Feb, 2013 [facility] [address] [id number] [address] [place] [address], [place] [address] Feb, 2012 [facility] [address] [id number] [address] [place] [address], [place] [address] Feb, [facility] [address] [id number] [address] [place] [address], [place] [address] Feb, [facility] [address] [id number] [address] [place] [address], [place] [address] Jan, [facility] [address] [id number] [address] [place] [address], [place] [address] Jan, [facility] [address] [id number] [address] [place] [address], [place] [address] Jan, [facility] [address] [id number] [address] [place] [address], [place] [address] Jan, [facility] [address] [id number] [address] [place] [address], [place] [address] Jan, [facility] [address] [id number] [address] [place] [address], [place] [address] Jan, [facility] [address] [id number] [address] [place] [address], [place] [address] Jan, [facility] [address] [id number] [address] [place] [address], [place] [address] Jan, [facility] [address] [id number] [address] [place] [address], [place] [address] Jan, [facility] [address] [id number] [address] [place] [address], [place] [address] Dec, [facility] [address] [id number] [address] [place] [address], [place] [address] Dec, [facility] [address] [id number] [address] [place] [address], [place] [address] Dec, [facility] [address] [id number] [address] [place] [address], [place] [address] Dec, [facility] [address] [id number] [address] [place] [address], [place] [address] Dec, [facility] [address] [id number] [address] [place] [address], [place] [address] Dec, [facility] [address] [id number] [address] [place] [address], [place] [address] Dec, [facility] [address] [id number] [address] [place] [address], [place] [address] Dec, [facility] [address] [id number] [address] [place] [address], [place] [address] Dec, [facility] [address] [id number] [address] [place] [address], [place] [address] Dec, [facility] [address] [id number] [address] [place] [address], [place] [address] Dec, [facility] [address] [id number] [address] [place] [address], [place] [address] Dec, [facility] [address] [id number] [address] [place] [address], [place] [address] Dec, [facility] [address] [id number] [address] [place] [address], [place] [address] Nov, [facility] [address] [id number] [address] [place] [address], [place] [address] Nov, [facility] [address] [id number] [address] [place] [address], [place] [address] Nov, [facility] [address] [id number] [address] [place] [address], [place] [address] Nov, [facility] [address] [id number] [address] [place] [address], [place] [address] October, [facility] [address] [id number] [address] [place] [address], [place] [address] October, [facility] [address] [id number] [address] [place] [address], [place] [address] October, [facility] [address] [id number] [address] [place] [address], [place] [address] October, [facility] [address] [id number] [address] [place] [address], [place] [address] October, [facility] [address] [id number] [address] [place] [address], [place] [address] October, [facility] [address] [id number] [address] [place] [address], [place] [address] Sep, [facility] [address] [id number] [address] [place] [address], [place] [address] Sep, [facility] [address] [id number] [address] [place] [address], [place] [address] Sep, [facility] [address] [id number] [address] [place] [address], [place] [address] Sep, [facility] [address] [id number] [address] [place] [address], [place] [address] Sep, [facility] [address] [id number] [facility] [place] [address] 16 Sep, 2012 [facility] [address] [id number] [address] [place] [address], [place] [address] 12 Sep, 2012 [facility] [address] [id number] [address] [place] [address], [place] [address] Sep, [facility] [address] [id number] [address] [place] [address], [place] [address] Sep, [facility] [address] [id number] [address] [place] [address], [place] [address] Sep, [facility] [address] [id number] [address] [place] [address], [place] [address] Sep, [facility] [address] [id number] [address] [place] [address], [place] [address] Aug, [facility] [address] [id number] [address] [place] [address], [place] [address] 25 Aug, 2012 [facility] [address] [id number] [address] [place] [address], [place] [address] 25 Aug, 2012 [facility] [address] [id number] [address] [place] [address], [place] [address] 21 Aug, 2012 [facility] [address] [id number] [address] [place] [address], [place] [address] 19 Aug, 2012 [facility] [address] [id number] [address] [place] [address], [place] [address] 18 Aug, 2012 [facility] [address] [id number] [address] [place] [address], [place] [address] 17 Aug, 2012 [facility] [address] [id number] [address] [place] [address], [place] [address] 15 Aug, 2012 [facility] [address] [id number] [address] [place] [address], [place] [address] 15 Aug, 2012 [facility] [address] [id number] [address] [place] [address], [place] [id number] Aug, [facility] [address] [id number] [address] [place] [address], [place] [id number] Aug, [facility] [address] [id number] [address] [place] [address], [place] [id number] Aug, [facility] [address] [id number] [address] [place] [address], [place] [id number] Jul, [facility] [address] [id number] [address] [place] [address], [place] [id number] Jul, [facility] [address] [id number] [address] [place] [address], [place] [id number] Jul, [facility] [address] [id number] [address] [place] [address], [place] [id number] Jul, [facility] [address] [id number] [address] [place] [address], [place] [id number] Jul, [facility] [address] [id number] [address] [place] [address], [place] [id number] Jul, [facility] [address] [id number] [address] [place] [address], [place] [id number] Jul, [facility] [address] [id number] [address] [place] [address], [place] [id number] Jul, [facility] [address] [id number] [address] [place] [address], [place] [id number] Jul, [facility] [address] [id number] [address] [place] [address], [place] [address] Jul, [facility] [address] [id number] [address] [place] [address], [place] [id number] May, [facility] [address] [id number] [place] [id number] May, [facility] [address] [id number] [address] [place] [address], [place] [id number] May, [facility] [address] [id number] [address] [place] [id number] May, [facility] [address] [facility] [id number] [address] [place] [id number] May, [facility] [address] [facility] [id number] [address] [place] [id number] Apr, [facility] [place] [address] [id number] [place] [id number] Apr, [facility] [address] [facility] [id number] [address] [place] [id number] Apr, [facility] [address] [facility] [id number] [address] [place] [id number] Mar, [facility] [place] [address] [id number] [place] [id number] Mar, [facility] [address] [facility] [id number] [address] [place] [id number] Mar, [facility] [place] [address] [id number] [place] [id number] Feb, [facility] [address] [facility] [id number] [address] [place] [id number] Feb, [facility] [address] [facility] [id number] [address] [place] [id number] Feb, [facility] [place] [address] [id number] [place] [id number] Feb, [facility] [place] [address] [id number] [place] [id number] Feb, [facility] [place] [address] [id number] [place] [id number] Jan, [facility] [address] [id number] [address] [place] [address], [place] [id number] Jan, [facility] [place] [address] [id number] [place] [id number] Jan, [facility] [place] [address] [id number] [place] [id number] Jan, [facility] [place] [address] [id number] [place] [id number] Jan, [facility] [address] [facility] [id number] [address] [place] [address], [place] [id number] Jan, [facility] [address] [facility] [id number] [address] [place] [address], [place] [id number] Jan, [facility] [address] [facility] [id number] [address] [place] [address], [place] [id number] Aug, [facility] [place] [address] [id number] [place] [id number] Aug, [facility] [address] [facility] [id number] [address] [place] [address], [place] [id number] Jul, [facility] [address] [facility] [id number] [address] [place] [address], [place] [id number] Jul, [facility] [address] [facility] [id number] [address] [place] [address], [place] [id number] Jul, [facility] [place] [address] [id number] [place] [id number] Jul, [facility] [address] [facility] [id number] [address] [place] [address], [place] [id number] Jul, [facility] [place] [address] [id number] [place] [id number] Jul, [facility] [address] [facility] [id number] [address] [place] [address], [place] [id number] Jul, [facility] [place] [address] [id number] [place] [id number] Jul, [facility] [place] [address] [id number] [place] [id number] Jul, [facility] [place] [address] [id number] [place] [id number] Jul, [facility] [address] [facility] [id number] [address] [place] [address], [place] [id number] May, [facility] [address] [id number] [address] [place] [id number] May, [facility] [address] [id number] [address] [place] [id number] May, [facility] [address] [id number] [address] [place] [id number] Apr, [facility] [address] [id number] [address] [place] [id number] Jan, [facility] [address] [address] [id number] [address] [place] [id number] Jan, [facility] [address] [id number] [address] [place] [phone] Dec, [facility] [address] [id number] [address] [place] [phone] Dec, [facility] [address] [id number] [address] [place] [phone] May, [facility] [address] [id number] [address] [place] [phone] Mar, [facility] [address] [id number] [address] [place] [id number] Mar, [facility] [address] [id number] [address] [place] [phone] Jan, IMMUNIZATIONS No Known Immunizations SOCIAL HISTORY Never Assessed REASON FOR VISIT PLAN OF CARE VITAL SIGNS Height 63 in 2014-08-09 Temperature 98.1 degrees Fahrenheit 2014-08-09 Heart Rate 86 bpm 2014-08-09 Respiratory Rate 18 2014-08-09 Blood pressure systolic 122 mmHg 2014-08-09 Blood pressure diastolic 78 mmHg 2014-08-09 MEDICATIONS Unknown Medications RESULTS No Results PROCEDURES Procedure Date Ordered Result Body Site PROTHROMBIN TIME Aug 09, 2014 INSTRUCTIONS MEDICATIONS ADMINISTERED No Known Medications [...]
--- OUTSIDE RECORDS SUMMARY | 2020-01-28 12:43 | XMS REPORT ---
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 Active 767912891 Problem History of venous thromboembolism V12.51 Active 829436206 Problem Cellulitis of unspecified part of limb L03.119 Active 964369228 Problem Gastroesophageal reflux disease without esophagitis K21.9 Active 964497249 Problem History of pulmonary embolism Z86.711 Active 588197522 Problem Pseudotumor cerebri G93.2 Active 17522905 Problem History of DVT (deep vein thrombosis) Z86.718 Active 698174189 ALLERGIES No Information ENCOUNTERS Encounter Location Date Diagnosis [place] [id number] [facility] [id number] [address] [place] [id number] Apr, [facility] (current) use of 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 Z79.01 [facility] [address] [facility] [id number] [address] [place] [address] Apr, [facility] 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.01 [facility] [address] [facility] [id number] [address] [place] [address] Apr, Cellulitis of unspecified pa rt of limb L03.119 ; Allergic contact dermatitis due to adhesives L23.1 and Chronic pain syndrome G89.4 [facility] [address] [facility] [id number] [address] [place] [phone] Apr, [place] [address] [place] [id number] [address] [place] [phone] Apr, 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 ; Cellulitis of unspecified part of limb L03.119 ; Chronic pain syndrome G89.4 and Anxiety F41.9 [facility] [address] [place] [id number] [address] [place] [id number] 16 Apr, 2015 [facility] [address] [place] [id number] [place] [phone] Apr, [place] [address] [place] [id number] [place] [phone] Mar, [place] [address] [address] Mar, [place] [address] [address] Mar, Sore throat J02.9 ; Gastroes ophageal reflux disease without esophagitis K21.9 ; Pseudotumor cerebri G93.2 ; Chronic pain syndrome G89.4 ; Choriocarcinoma C58 ; History of pulmonary embolism Z86.711 ; History of DVT (deep vein thrombosis) Z86.718 ; Anxiety F41.9 and Tachycardia R00.0 [place] [address] [address] Feb, Anxiety 300.00 and Chronic p ain 338.29 [place] [address] [place] [id number] [address] [place] [phone] Feb, [place] [address] [place] [id number] [address] [place] [phone] Feb, [place] [address] [address] Jan, 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 therapy V58.61 and Dysuria 788.1 [place] [address] [place] [id number] [place] [address] Jan, Dysuria 788.1 [facility] [address] [place] [id number] [address] [place] [address] Jan, Anxiety 300.00 and Chronic p ain 338.29 [facility] [address] [place] [id number] [place] [phone] Jan, [facility] [address] [address] Jan, [facility] [address] [address] Jan, [place] [address] [address] Dec, Weakness 780.79 [place] [address] [address] Dec, [facility] 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 therapy V58.61 [place] [address] [address] Dec, Palpitations 785.1 ; Tremor 781.0 ; Weakness 780.79 ; [facility] current use of anticoagulant therapy V58.61 and Yeast vaginitis 112.1 [place] [address] [place] [id number] [address] [place] [phone] Dec, [place] [address] [address] Dec, Cervicalgia 723.1 ; Tachycar yoseph 785.0 ; Pseudotumor cerebri 348.2 and History of venous thromboembolism V12.51 [place] [address] [address] Nov, [place] [address] [address] Nov, [place] [address] [address] Nov, Tachycardia 785.0 ; Pseudotu mor cerebri 348.2 ; Anxiety 300.00 and History of venous thromboembolism V12.51 [facility] [address] [id number] [address] [place] [phone] Nov, [facility] [address] [id number] [address] [place] [phone] 18 Nov, 2014 [facility] [address] [id number] [address] [place] [address] Nov, [facility] [address] [id number] [address] [place] [address] Nov, [facility] [address] [facility] [id number] [address] [place] [address] Nov, [facility] [address] [facility] [id number] [address] [place] [address] Nov, [facility] [address] [facility] [id number] [address] [place] [phone] Nov, [facility] [address] [facility] [id number] [address] [place] [phone] October, [facility] [address] [facility] [id number] [address] [place] [phone] October, [facility] [address] [place] [id number] [address] [place] [address] October, Pain in thoracic spine 724.1 and Tachycardia 785.0 [facility] [address] [id number] [address] [place] [phone] October, [facility] [address] [id number] [address] [place] [phone] October, [facility] [address] [facility] [id number] [address] [place] [phone] 14 Sep, 2014 [facility] [address] [facility] [id number] [address] [place] [phone] Sep, [facility] [address] [id number] [facility] [place] [address] Aug, [facility] [address] [id number] [address] [place] [address], [place] [address] Aug, [facility] [address] [id number] [address] [place] [address], [place] [address] Aug, [facility] [address] [id number] [address] [place] [address], [place] [address] Aug, [facility] [address] [id number] [address] [place] [address], [place] [address] Aug, [facility] [address] [id number] [address] [place] [address], [place] [address] Aug, [facility] [address] [id number] [address] [place] [address], [place] [address] Aug, [facility] [address] [id number] [address] [place] [address], [place] [address] Aug, [facility] [address] [id number] [address] [place] [address], [place] [address] Aug, [facility] [address] [id number] [address] [place] [address], [place] [address] Aug, [facility] [address] [id number] [address] [place] [address], [place] [address] Aug, [facility] [address] [id number] [address] [place] [address], [place] [address] Aug, 2014 [facility] [address] [id number] [address] [place] [address], [place] [address] Jul, [facility] [address] [id number] [address] [place] [address], [place] [address] Jul, [facility] [address] [id number] [address] [place] [address], [place] [address] Jul, [facility] [address] [id number] [address] [place] [address], [place] [address] Jul, [facility] [address] [id number] [address] [place] [address], [place] [address] 23 Jul, 2014 [facility] [address] [id number] [address] [place] [address], [place] [address] 23 Jul, 2014 [facility] [address] [id number] [address] [place] [address], [place] [address] 23 Jul, 2014 [facility] [address] [id number] [address] [place] [address], [place] [address] 23 Jul, 2014 [facility] [address] [id number] [address] [place] [address], [place] [address] 20 Jul, 2014 [facility] [address] [id number] [address] [place] [address], [place] [address] 20 Jul, 2014 [facility] [address] [id number] [address] [place] [address], [place] [address] 19 Jul, 2014 [facility] [address] [id number] [address] [place] [address], [place] [address] 19 Jul, 2014 [facility] [address] [id number] [address] [place] [address], [place] [address] 17 Jul, 2014 [facility] [address] [id number] [address] [place] [address], [place] [address] 17 Jul, 2014 [facility] [address] [id number] [address] [place] [address], [place] [address] 16 Jul, 2014 [facility] [address] [id number] [address] [place] [address], [place] [address] 16 Jul, 2014 [facility] [address] [id number] [address] [place] [address], [place] [address] 16 Jul, 2014 [facility] [address] [id number] [address] [place] [address] 16 Jul, 2014 [facility] [address] [id number] [address] [place] [phone] 13 Jul, 2014 [facility] [address] [id number] [address] [place] [address], [place] [address] Jul, [facility] [address] [id number] [address] [place] [address], [place] [address] Jul, [facility] [address] [id number] [address] [place] [address], [place] [address] Jul, 2014 [facility] [address] [id number] [address] [place] [address], [place] [address] Jul, 2014 [facility] [address] [id number] [address] [place] [address], [place] [address] Jul, [facility] [address] [id number] [address] [place] [address], [place] [address] Jul, [facility] [address] [id number] [address] [place] [address], [place] [address] Jul, [facility] [address] [id number] [address] [place] [address], [place] [address] Jul, [facility] [address] [id number] [address] [place] [address], [place] [address] Jul, [facility] [address] [id number] [address] [place] [address], [place] [address] Jul, [facility] [address] [id number] [address] [place] [address], [place] [address] Jul, [facility] [address] [id number] [address] [place] [address], [place] [address] Jun, [facility] [address] [id number] [address] [place] [address], [place] [address] Jun, [facility] [address] [id number] [address] [place] [address], [place] [address] Jun, [facility] [address] [id number] [address] [place] [address], [place] [address] Jun, [facility] [address] [id number] [address] [place] [address], [place] [address] Jun, [facility] [address] [id number] [address] [place] [address], [place] [address] Jun, [facility] [address] [id number] [address] [place] [address], [place] [address] Jun, [facility] [address] [id number] [address] [place] [address], [place] [address] Jun, [facility] [address] [id number] [address] [place] [address], [place] [address] Jun, [facility] [address] [id number] [address] [place] [address], [place] [address] Jun, [facility] [address] [id number] [address] [place] [address], [place] [address] Jun, [facility] [address] [id number] [address] [place] [address], [place] [address] Jun, [facility] [address] [id number] [address] [place] [address], [place] [address] Jun, [facility] [address] [id number] [address] [place] [address], [place] [address] Jun, [facility] [address] [id number] [address] [place] [address], [place] [address] Jun, [facility] [address] [id number] [address] [place] [address], [place] [address] Jun, [facility] [address] [id number] [address] [place] [address], [place] [address] Jun, [facility] [address] [id number] [address] [place] [address], [place] [address] Jun, [facility] [address] [id number] [address] [place] [address], [place] [address] Jun, [facility] [address] [id number] [address] [place] [address], [place] [address] Jun, [facility] [address] [id number] [address] [place] [address], [place] [address] May, [facility] [address] [id number] [address] [place] [address], [place] [address] May, [facility] [address] [id number] [address] [place] [address], [place] [address] May, [facility] [address] [id number] [address] [place] [address], [place] [address] May, [facility] [address] [id number] [address] [place] [address], [place] [address] May, [facility] [address] [id number] [address] [place] [address], [place] [address] May, [facility] [address] [id number] [address] [place] [address], [place] [address] May, [facility] [address] [id number] [address] [place] [address], [place] [address] May, [facility] [address] [id number] [address] [place] [address], [place] [address] May, [facility] [address] [id number] [address] [place] [address], [place] [address] May, [facility] [address] [id number] [address] [place] [address], [place] [address] May, [facility] [address] [id number] [address] [place] [address], [place] [address] 18 May, 2014 [facility] [address] [id number] [address] [place] [address], [place] [address] 18 May, 2014 [facility] [address] [id number] [address] [place] [address], [place] [address] 17 May, 2014 [facility] [address] [id number] [address] [place] [address], [place] [address] 16 May, 2014 [facility] [address] [id number] [address] [place] [address], [place] [address] 16 May, 2014 [facility] [address] [id number] [address] [place] [address], [place] [address] 15 May, 2014 [facility] [address] [id number] [address] [place] [address], [place] [address] 15 May, 2014 [facility] [address] [id number] [address] [place] [address], [place] [address] May, [facility] [address] [id number] [address] [place] [address], [place] [address] May, [facility] [address] [id number] [address] [place] [address], [place] [address] May, [facility] [address] [id number] [address] [place] [address], [place] [address] May, [facility] [address] [id number] [address] [place] [address], [place] [address] May, [facility] [address] [id number] [address] [place] [address], [place] [address] May, [facility] [address] [id number] [address] [place] [address], [place] [address] May, [facility] [address] [id number] [address] [place] [address], [place] [address] May, [facility] [address] [id number] [address] [place] [address], [place] [address] May, [facility] [address] [id number] [address] [place] [address], [place] [address] May, [facility] [address] [id number] [address] [place] [address], [place] [address] May, [facility] [address] [id number] [address] [place] [address], [place] [address] May, [facility] [address] [id number] [address] [place] [address], [place] [address] May, [facility] [address] [id number] [address] [place] [address], [place] [address] May, [facility] [address] [id number] [address] [place] [address], [place] [address] May, [facility] [address] [id number] [address] [place] [address], [place] [address] May, [facility] [address] [id number] [address] [place] [address], [place] [address] Apr, [facility] [address] [id number] [address] [place] [address], [place] [address] Apr, [facility] [address] [id number] [address] [place] [address], [place] [address] Apr, [facility] [address] [id number] [address] [place] [address], [place] [address] Apr, [facility] [address] [id number] [address] [place] [address], [place] [address] Apr, [facility] [address] [id number] [address] [place] [address], [place] [address] Apr, [facility] [address] [id number] [address] [place] [address], [place] [address] Apr, [facility] [address] [id number] [address] [place] [address], [place] [address] Apr, [facility] [address] [id number] [address] [place] [address], [place] [address] Apr, [facility] [address] [id number] [address] [place] [address], [place] [address] Apr, [facility] [address] [id number] [address] [place] [address], [place] [address] Mar, [facility] [address] [id number] [address] [place] [address], [place] [address] Mar, [facility] [address] [id number] [address] [place] [address] [address] Mar, [facility] [address] [id number] [address] [place] [address], [place] [address] 31 Mar, 2013 [facility] [address] [id number] [address] [place] [address], [place] [address] Mar, [facility] [address] [id number] [address] [place] [address], [place] [address] 30 Mar, 2014 [facility] [address] [id number] [address] [place] [address], [place] [address] Mar, [facility] [address] [id number] [address] [place] [address], [place] [address] Mar, [facility] [address] [id number] [address] [place] [address], [place] [address] Mar, [facility] [address] [id number] [address] [place] [address], [place] [address] Mar, [facility] [address] [id number] [address] [place] [id number] Mar, [facility] [address] [id number] [address] [place] [id number] Mar, [facility] [address] [id number] [address] [place] [id number] Mar, [facility] [address] [id number] [address] [place] [id number] Mar, 2013 [facility] [address] [id number] [address] [place] [id number] Mar, 2013 [facility] [address] [id number] [address] [place] [id number] Mar, [facility] [address] [id number] [address] [place] [id number] Mar, [facility] [address] [id number] [address] [place] [id number] Mar, 2013 [facility] [address] [id number] [address] [place] [address], [place] [address] 02 Mar, 2013 [facility] [address] [id number] [address] [place] [address], [place] [address] 02 Mar, 2013 [facility] [address] [id number] [address] [place] [address], [place] [address] 05 Sep, 2013 [facility] [address] [id number] [address] [place] [address], [place] [address] 05 Sep, 2013 [facility] [address] [id number] [address] [place] [address], [place] [address] 04 Sep, 2013 [facility] [address] [id number] [address] [place] [address], [place] [address] 04 Sep, 2013 [facility] [address] [id number] [address] [place] [address], [place] [address] 03 Feb, 2013 [facility] [address] [id number] [address] [place] [address], [place] [address] 03 Feb, 2013 [facility] [address] [id number] [address] [place] [address], [place] [address] 02 Feb, 2013 [facility] [address] [id number] [address] [place] [address], [place] [address] Feb, 2013 [facility] [address] [id number] [address] [place] [address], [place] [address] 02 Feb, 2013 [facility] [address] [id number] [address] [place] [address], [place] [address] Feb, 2013 [facility] [address] [id number] [address] [place] [address], [place] [address] Jan, [facility] [address] [id number] [address] [place] [address], [place] [address] Jan, [facility] [address] [id number] [address] [place] [address], [place] [address] Jan, [facility] [address] [id number] [address] [place] [address], [place] [address] Jan, [facility] [address] [id number] [facility] [place] [address] Jan, [facility] [address] [id number] [address] [place] [address], [place] [address] Jan, [facility] [address] [id number] [address] [place] [address], [place] [address] Jan, [facility] [address] [id number] [address] [place] [address], [place] [address] Jan, [facility] [address] [id number] [address] [place] [address], [place] [address] Jan, [facility] [address] [id number] [address] [place] [address], [place] [address] Jan, [facility] [address] [id number] [address] [place] [address], [place] [address] Jan, [facility] [address] [id number] [address] [place] [address], [place] [address] Jan, [facility] [address] [id number] [address] [place] [address], [place] [address] Dec, [facility] [address] [id number] [address] [place] [address], [place] [address] Dec, [facility] [address] [id number] [address] [place] [address], [place] [address] Dec, [facility] [address] [id number] [address] [place] [address], [place] [address] Dec, [facility] [address] [id number] [address] [place] [address], [place] [address] Dec, [facility] [address] [id number] [address] [place] [address], [place] [address] Dec, [facility] [address] [id number] [address] [place] [address], [place] [address] Dec, [facility] [address] [id number] [address] [place] [address], [place] [address] Dec, [facility] [address] [id number] [facility] [place] [address] Dec, [facility] [address] [id number] [address] [place] [address], [place] [address] Dec, [facility] [address] [id number] [address] [place] [address], [place] [address] Dec, [facility] [address] [id number] [address] [place] [address], [place] [address] Dec, [facility] [address] [id number] [address] [place] [address], [place] [address] Nov, [facility] [address] [id number] [address] [place] [address], [place] [address] Nov, [facility] [address] [id number] [address] [place] [address], [place] [address] Nov, [facility] [address] [id number] [address] [place] [address], [place] [address] Nov, [facility] [address] [id number] [address] [place] [address], [place] [address] Nov, [facility] [address] [id number] [address] [place] [address], [place] [address] Nov, [facility] [address] [id number] [address] [place] [address], [place] [address] Nov, [facility] [address] [id number] [address] [place] [address], [place] [address] Nov, [facility] [address] [id number] [address] [place] [address], [place] [address] Nov, [facility] [address] [id number] [address] [place] [address], [place] [address] Nov, [facility] [address] [id number] [address] [place] [address], [place] [address] Nov, [facility] [address] [id number] [facility] [place] [address] Nov, [facility] [address] [id number] [address] [place] [address], [place] [address] Nov, [facility] [address] [id number] [address] [place] [address], [place] [address] Nov, [facility] [address] [id number] [address] [place] [address], [place] [address] October, [facility] [address] [id number] [address] [place] [address], [place] [address] October, [facility] [address] [id number] [address] [place] [address], [place] [address] October, [facility] [address] [id number] [address] [place] [address], [place] [address] October, [facility] [address] [id number] [address] [place] [address], [place] [address] October, [facility] [address] [id number] [address] [place] [address], [place] [address] October, [facility] [address] [id number] [address] [place] [address], [place] [address] October, [facility] [address] [id number] [address] [place] [address], [place] [address] October, [facility] [address] [id number] [address] [place] [address], [place] [address] October, [facility] [address] [id number] [address] [place] [address], [place] [address] October, [facility] [address] [id number] [address] [place] [address], [place] [address] October, [facility] [address] [id number] [address] [place] [address], [place] [address] October, [facility] [address] [id number] [address] [place] [address], [place] [address] Sep, [facility] [address] [id number] [facility] [place] [address] Sep, [facility] [address] [id number] [address] [place] [address], [place] [address] Sep, [facility] [address] [id number] [facility] [place] [address] Sep, [facility] [address] [id number] [address] [place] [address], [place] [address] Sep, [facility] [address] [id number] [address] [place] [address], [place] [address] Sep, [facility] [address] [id number] [address] [place] [address], [place] [address] Aug, [facility] [address] [id number] [address] [place] [address], [place] [address] Aug, [facility] [address] [id number] [address] [place] [address], [place] [address] Aug, [facility] [address] [id number] [address] [place] [address], [place] [address] Aug, [facility] [address] [id number] [address] [place] [address], [place] [address] Aug, [facility] [address] [id number] [address] [place] [address], [place] [address] Aug, [facility] [address] [id number] [address] [place] [address], [place] [address] Jul, [facility] [address] [id number] [address] [place] [address], [place] [address] Jul, [facility] [address] [id number] [address] [place] [address], [place] [address] Jul, [facility] [address] [id number] [address] [place] [address], [place] [address] Jul, [facility] [address] [id number] [address] [place] [address], [place] [address] 13 Jul, 2013 [facility] [address] [id number] [address] [place] [address], [place] [address] Jul, [facility] [address] [id number] [address] [place] [address], [place] [address] Jul, [facility] [address] [id number] [address] [place] [address], [place] [address] Jul, [facility] [address] [id number] [address] [place] [address], [place] [address] Jul, [facility] [address] [id number] [address] [place] [address], [place] [address] Jul, [facility] [address] [id number] [address] [place] [address], [place] [address] Jun, [facility] [address] [id number] [address] [place] [address], [place] [address] Jun, [facility] [address] [id number] [address] [place] [address], [place] [address] Jun, [facility] [address] [id number] [address] [place] [address], [place] [address] Jun, [facility] [address] [id number] [address] [place] [address], [place] [address] Jun, [facility] [address] [id number] [address] [place] [address], [place] [address] Jun, [facility] [address] [id number] [address] [place] [address], [place] [address] Jun, [facility] [address] [id number] [address] [place] [address], [place] [address] Jun, [facility] [address] [id number] [address] [place] [address], [place] [address] May, [facility] [address] [id number] [address] [place] [address], [place] [address] May, [facility] [address] [id number] [address] [place] [address], [place] [address] May, [facility] [address] [id number] [address] [place] [address], [place] [address] May, [facility] [address] [id number] [address] [place] [address], [place] [address] May, [facility] [address] [id number] [address] [place] [address], [place] [address] May, [facility] [address] [id number] [address] [place] [address], [place] [address] May, [facility] [address] [id number] [address] [place] [address], [place] [address] May, [facility] [address] [id number] [address] [place] [address], [place] [address] Apr, [facility] [address] [id number] [address] [place] [address] Apr, [facility] [address] [id number] [address] [place] [address], [place] [address] Apr, [facility] [address] [id number] [address] [place] [address] Apr, [facility] [address] [id number] [address] [place] [address] Apr, [facility] [address] [id number] [address] [place] [address] Apr, [facility] [address] [id number] [address] [place] [address], [place] [address] Mar, [facility] [address] [id number] [address] [place] [address] Mar, [facility] [address] [id number] [address] [place] [address], [place] [address] Mar, [facility] [address] [id number] [address] [place] [address], [place] [address] Mar, [facility] [address] [id number] [address] [place] [address], [place] [address] Mar, [facility] [address] [id number] [address] [place] [address], [place] [address] Mar, [facility] [address] [id number] [address] [place] [address], [place] [address] Mar, [facility] [address] [id number] [address] [place] [address], [place] [address] 30 Feb, 2012 [facility] [address] [id number] [address] [place] [address], [place] [address] 30 Feb, 2013 [facility] [address] [id number] [address] [place] [address], [place] [address] 27 Feb, 2013 [facility] [address] [id number] [address] [place] [address], [place] [address] Feb, 2012 [facility] [address] [id number] [address] [place] [address], [place] [address] Feb, [facility] [address] [id number] [address] [place] [address], [place] [address] Feb, [facility] [address] [id number] [address] [place] [address], [place] [address] Jan, [facility] [address] [id number] [address] [place] [address], [place] [address] Jan, [facility] [address] [id number] [address] [place] [address], [place] [address] Jan, [facility] [address] [id number] [address] [place] [address], [place] [address] Jan, [facility] [address] [id number] [address] [place] [address], [place] [address] Jan, [facility] [address] [id number] [address] [place] [address], [place] [address] Jan, [facility] [address] [id number] [address] [place] [address], [place] [address] Jan, [facility] [address] [id number] [address] [place] [address], [place] [address] Jan, [facility] [address] [id number] [address] [place] [address], [place] [address] Jan, [facility] [address] [id number] [address] [place] [address], [place] [address] Dec, [facility] [address] [id number] [address] [place] [address], [place] [address] Dec, [facility] [address] [id number] [address] [place] [address], [place] [address] Dec, [facility] [address] [id number] [address] [place] [address], [place] [address] Dec, [facility] [address] [id number] [address] [place] [address], [place] [address] Dec, [facility] [address] [id number] [address] [place] [address], [place] [address] Dec, [facility] [address] [id number] [address] [place] [address], [place] [address] Dec, [facility] [address] [id number] [address] [place] [address], [place] [address] Dec, [facility] [address] [id number] [address] [place] [address], [place] [address] Dec, [facility] [address] [id number] [address] [place] [address], [place] [address] Dec, [facility] [address] [id number] [address] [place] [address], [place] [address] Dec, [facility] [address] [id number] [address] [place] [address], [place] [address] Dec, [facility] [address] [id number] [address] [place] [address], [place] [address] Dec, [facility] [address] [id number] [address] [place] [address], [place] [address] Nov, [facility] [address] [id number] [address] [place] [address], [place] [address] Nov, [facility] [address] [id number] [address] [place] [address], [place] [address] Nov, [facility] [address] [id number] [address] [place] [address], [place] [address] Nov, [facility] [address] [id number] [address] [place] [address], [place] [address] October, [facility] [address] [id number] [address] [place] [address], [place] [address] October, [facility] [address] [id number] [address] [place] [address], [place] [address] October, [facility] [address] [id number] [address] [place] [address], [place] [address] October, [facility] [address] [id number] [address] [place] [address], [place] [address] October, [facility] [address] [id number] [address] [place] [address], [place] [address] October, [facility] [address] [id number] [address] [place] [address], [place] [address] Sep, [facility] [address] [id number] [address] [place] [address], [place] [address] Sep, [facility] [address] [id number] [address] [place] [address], [place] [address] Sep, [facility] [address] [id number] [address] [place] [address], [place] [address] Sep, [facility] [address] [id number] [address] [place] [address], [place] [address] Sep, [facility] [address] [id number] [facility] [place] [address] 16 Sep, 2012 [facility] [address] [id number] [address] [place] [address], [place] [address] 12 Sep, 2012 [facility] [address] [id number] [address] [place] [address], [place] [address] Sep, [facility] [address] [id number] [address] [place] [address], [place] [address] Sep, [facility] [address] [id number] [address] [place] [address], [place] [address] Sep, [facility] [address] [id number] [address] [place] [address], [place] [address] Sep, [facility] [address] [id number] [address] [place] [address], [place] [address] Aug, [facility] [address] [id number] [address] [place] [address], [place] [address] 25 Aug, 2012 [facility] [address] [id number] [address] [place] [address], [place] [address] 25 Aug, 2012 [facility] [address] [id number] [address] [place] [address], [place] [address] 21 Aug, 2012 [facility] [address] [id number] [address] [place] [address], [place] [address] 19 Aug, 2012 [facility] [address] [id number] [address] [place] [address], [place] [address] 18 Aug, 2012 [facility] [address] [id number] [address] [place] [address], [place] [address] 17 Aug, 2012 [facility] [address] [id number] [address] [place] [address], [place] [address] 15 Aug, 2012 [facility] [address] [id number] [address] [place] [address], [place] [address] 15 Aug, 2012 [facility] [address] [id number] [address] [place] [address], [place] [address] Aug, [facility] [address] [id number] [address] [place] [address], [place] [address] Aug, [facility] [address] [id number] [address] [place] [address], [place] [address] Aug, [facility] [address] [id number] [address] [place] [address], [place] [address] Jul, [facility] [address] [id number] [address] [place] [address], [place] [address] Jul, [facility] [address] [id number] [address] [place] [address], [place] [address] Jul, [facility] [address] [id number] [address] [place] [address], [place] [address] Jul, [facility] [address] [id number] [address] [place] [address], [place] [address] Jul, [facility] [address] [id number] [address] [place] [address], [place] [address] Jul, [facility] [address] [id number] [address] [place] [address], [place] [address] Jul, [facility] [address] [id number] [address] [place] [address], [place] [address] Jul, [facility] [address] [id number] [address] [place] [address], [place] [address] Jul, [facility] [address] [id number] [address] [place] [address], [place] [address] Jul, [facility] [address] [id number] [address] [place] [address], [place] [address] May, [facility] [address] [id number] [id number] May, [facility] [address] [id number] [address] [place] [address], [place] [address] May, [facility] [address] [id number] [address] [place] [address] May, [facility] [address] [facility] [id number] [address] [place] [id number] May, [facility] [address] [facility] [id number] [address] [place] [id number] Apr, [facility] [place] [address] [id number] [place] [id number] Apr, [facility] [address] [facility] [id number] [address] [place] [phone] Apr, [facility] [address] [facility] [id number] [address] [place] [id number] Mar, [facility] [address] [id number] [place] [id number] Mar, [facility] [address] [facility] [id number] [address] [place] [phone] Mar, [facility] [address] [id number] [place] [id number] Feb, [facility] [address] [facility] [id number] [address] [place] [phone] Feb, [facility] [address] [facility] [id number] [address] [place] [phone] Feb, [facility] [place] [address] [id number] [place] [id number] Feb, [facility] [address] [id number] [place] [id number] Feb, [facility] [address] [id number] [place] [id number] Jan, [facility] [address] [id number] [address] [place] [address], [place] [address] Jan, [facility] [address] [id number] [place] [id number] Jan, [facility] [address] [id number] [place] [id number] Jan, [facility] [address] [id number] [place] [id number] Jan, [facility] [address] [facility] [id number] [address] [place] [address], [place] [address] Jan, [facility] [address] [facility] [id number] [address] [place] [address], [place] [address] Jan, [facility] [address] [facility] [id number] [address] [place] [address], [place] [address] Aug, [facility] [address] [id number] [place] [id number] Aug, [facility] [address] [facility] [id number] [address] [place] [address], [place] [address] Jul, [facility] [address] [facility] [id number] [address] [place] [address], [place] [address] Jul, [facility] [address] [facility] [id number] [address] [place] [address], [place] [address] Jul, [facility] [place] [address] [id number] [place] [id number] Jul, [facility] [address] [facility] [id number] [address] [place] [address], [place] [address] Jul, [facility] [address] [id number] [place] [id number] Jul, [facility] [address] [facility] [id number] [address] [place] [address], [place] [address] Jul, [facility] [address] [id number] [place] [id number] Jul, [facility] [place] [address] [id number] [place] [id number] Jul, [facility] [address] [id number] [place] [id number] Jul, [facility] [address] [facility] [id number] [address] [place] [address], [place] [address] May, [facility] [address] [id number] [address] [place] [phone] May, [facility] [address] [id number] [address] [place] [id number] May, [facility] [address] [id number] [address] [place] [phone] Apr, [facility] [address] [id number] [address] [place] [phone] Jan, [facility] [address] [id number] [address] [place] [id number] Jan, [facility] [address] [id number] [address] [place] [id number] Dec, [facility] [address] [id number] [address] [place] [phone] Dec, [facility] [address] [id number] [address] [place] [id number] May, [facility] [address] [id number] [address] [place] [phone] Mar, [facility] [address] [id number] [address] [place] [id number] Mar, [facility] [address] [id number] [address] [place] [id number] Jan, IMMUNIZATIONS No Known Immunizations SOCIAL HISTORY [...]
--- OUTSIDE RECORDS SUMMARY | 2020-01-28 12:43 | XMS REPORT ---
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 Z79.01 Active 836477569 Problem History of venous thromboembolism V12.51 Active 625840784 Problem Cellulitis of unspecified part of limb L03.119 Active 633685933 Problem Gastroesophageal reflux disease without esophagitis K21.9 Active 675162431 Problem History of pulmonary embolism Z86.711 Active 564058697 Problem Pseudotumor cerebri G93.2 Active 27382519 Problem History of DVT (deep vein thrombosis) Z86.718 Active 413245123 ALLERGIES No Information ENCOUNTERS Encounter Location Date Diagnosis [place] [id number] [facility] [id number] [address] [place] [id number] Apr, prison (current) use of 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 Z79.01 [facility] [address] [facility] [id number] [address] [place] [address] Apr, prison 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.01 [facility] [address] [facility] [id number] [address] [place] [address] Apr, Cellulitis of unspecified pa rt of limb L03.119 ; Allergic contact dermatitis due to adhesives L23.1 and Chronic pain syndrome G89.4 [facility] [address] [facility] [id number] [address] [place] [address] Apr, [place] [address] [place] [id number] [address] [place] [address] Apr, manager terminal 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.01 ; Cellulitis of unspecified part of limb L03.119 ; Chronic pain syndrome G89.4 and Anxiety F41.9 [facility] [address] [place] [id number] [address] [place] [address] 16 Apr, 2015 [facility] [address] [place] [id number] [place] [address] Apr, [place] [address] [place] [id number] [place] [address] Mar, [place] [address] [address] Mar, [place] [address] [address] Mar, Sore throat J02.9 ; Gastroes ophageal reflux disease without esophagitis K21.9 ; Pseudotumor cerebri G93.2 ; Chronic pain syndrome G89.4 ; Choriocarcinoma C58 ; History of pulmonary embolism Z86.711 ; History of DVT (deep vein thrombosis) Z86.718 ; Anxiety F41.9 and Tachycardia R00.0 [place] [address] [address] Feb, Anxiety 300.00 and Chronic p ain 338.29 [place] [address] [place] [id number] [address] [place] [address] Feb, [place] [address] [place] [id number] [address] [place] [address] Feb, [place] [address] [address] Jan, manager terminal 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 therapy V58.61 and Dysuria 788.1 [place] [address] [place] [id number] [place] [address] Jan, Dysuria 788.1 [facility] [address] [place] [id number] [address] [place] [address] Jan, Anxiety 300.00 and Chronic p ain 338.29 [facility] [address] [place] [id number] [place] [address] Jan, [facility] [address] [address] Jan, [facility] [address] [address] Jan, [place] [address] [address] Dec, Weakness 780.79 [place] [address] [address] Dec, prison 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 therapy V58.61 [place] [address] [address] Dec, Palpitations 785.1 ; Tremor 781.0 ; Weakness 780.79 ; prison current use of anticoagulant therapy V58.61 and Yeast vaginitis 112.1 [place] [address] [place] [id number] [address] [place] [address] Dec, [place] [address] [address] Dec, Cervicalgia 723.1 ; Tachycar yoseph 785.0 ; Pseudotumor cerebri 348.2 and History of venous thromboembolism V12.51 [place] [address] [address] Nov, [place] [address] [address] Nov, [place] [address] [address] Nov, Tachycardia 785.0 ; Pseudotu mor cerebri 348.2 ; Anxiety 300.00 and History of venous thromboembolism V12.51 [facility] [address] [id number] [address] [place] [address] Nov, [facility] [address] [id number] [address] [place] [address] 18 Nov, 2014 [facility] [address] [id number] [address] [place] [address] Nov, [facility] [address] [id number] [address] [place] [address] Nov, [facility] [address] [facility] [id number] [address] [place] [address] Nov, [facility] [address] [facility] [id number] [address] [place] [address] Nov, [facility] [address] [facility] [id number] [address] [place] [address] Nov, [facility] [address] [facility] [id number] [address] [place] [address] October, [facility] [address] [facility] [id number] [address] [place] [address] October, [facility] [address] [place] [id number] [address] [place] [address] October, Pain in thoracic spine 724.1 and Tachycardia 785.0 [facility] [address] [id number] [address] [place] [address] October, [facility] [address] [id number] [address] [place] [address] October, [facility] [address] [facility] [id number] [address] [place] [phone] 14 Sep, 2014 [facility] [address] [facility] [id number] [address] [place] [phone] Sep, [facility] [address] [id number] [facility] [address] Aug, [facility] [address] [id number] [address] [place] [address], [place] [address] Aug, [facility] [address] [id number] [address] [place] [address], [place] [address] Aug, [facility] [address] [id number] [address] [place] [address], [place] [address] Aug, [facility] [address] [id number] [address] [place] [address], [place] [address] Aug, [facility] [address] [id number] [address] [place] [address], [place] [address] Aug, [facility] [address] [id number] [address] [place] [address], [place] [address] Aug, [facility] [address] [id number] [address] [place] [address], [place] [address] Aug, [facility] [address] [id number] [address] [place] [address], [place] [address] Aug, [facility] [address] [id number] [address] [place] [address], [place] [address] Aug, [facility] [address] [id number] [address] [place] [address], [place] [address] Aug, [facility] [address] [id number] [address] [place] [address], [place] [address] Aug, 2014 [facility] [address] [id number] [address] [place] [address], [place] [address] Jul, [facility] [address] [id number] [address] [place] [address], [place] [address] Jul, [facility] [address] [id number] [address] [place] [address], [place] [address] Jul, [facility] [address] [id number] [address] [place] [address], [place] [address] Jul, [facility] [address] [id number] [address] [place] [address], [place] [address] 23 Jul, 2014 [facility] [address] [id number] [address] [place] [address], [place] [address] 23 Jul, 2014 [facility] [address] [id number] [address] [place] [address], [place] [address] 23 Jul, 2014 [facility] [address] [id number] [address] [place] [address], [place] [address] 23 Jul, 2014 [facility] [address] [id number] [address] [place] [address], [place] [address] 20 Jul, 2014 [facility] [address] [id number] [address] [place] [address], [place] [address] 20 Jul, 2014 [facility] [address] [id number] [address] [place] [address], [place] [address] 19 Jul, 2014 [facility] [address] [id number] [address] [place] [address], [place] [address] 19 Jul, 2014 [facility] [address] [id number] [address] [place] [address], [place] [address] 17 Jul, 2014 [facility] [address] [id number] [address] [place] [address], [place] [address] 17 Jul, 2014 [facility] [address] [id number] [address] [place] [address], [place] [address] 16 Jul, 2014 [facility] [address] [id number] [address] [place] [address], [place] [address] 16 Jul, 2014 [facility] [address] [id number] [address] [place] [address], [place] [address] 16 Jul, 2014 [facility] [address] [id number] [address] [place] [address] 16 Jul, 2014 [facility] [address] [id number] [address] [place] [address] 13 Jul, 2014 [facility] [address] [id number] [address] [place] [address], [place] [address] Jul, [facility] [address] [id number] [address] [place] [address], [place] [address] Jul, [facility] [address] [id number] [address] [place] [address], [place] [address] Jul, 2014 [facility] [address] [id number] [address] [place] [address], [place] [address] Jul, 2014 [facility] [address] [id number] [address] [place] [address], [place] [address] Jul, [facility] [address] [id number] [address] [place] [address], [place] [address] Jul, [facility] [address] [id number] [address] [place] [address], [place] [address] Jul, [facility] [address] [id number] [address] [place] [address], [place] [address] Jul, [facility] [address] [id number] [address] [place] [address], [place] [address] Jul, [facility] [address] [id number] [address] [place] [address], [place] [address] Jul, [facility] [address] [id number] [address] [place] [address], [place] [address] Jul, [facility] [address] [id number] [address] [place] [address], [place] [address] Jun, [facility] [address] [id number] [address] [place] [address], [place] [address] Jun, [facility] [address] [id number] [address] [place] [address], [place] [address] Jun, [facility] [address] [id number] [address] [place] [address], [place] [address] Jun, [facility] [address] [id number] [address] [place] [address], [place] [address] Jun, [facility] [address] [id number] [address] [place] [address], [place] [address] Jun, [facility] [address] [id number] [address] [place] [address], [place] [address] Jun, [facility] [address] [id number] [address] [place] [address], [place] [address] Jun, [facility] [address] [id number] [address] [place] [address], [place] [address] Jun, [facility] [address] [id number] [address] [place] [address], [place] [address] Jun, [facility] [address] [id number] [address] [place] [address], [place] [address] Jun, [facility] [address] [id number] [address] [place] [address], [place] [address] Jun, [facility] [address] [id number] [address] [place] [address], [place] [address] Jun, [facility] [address] [id number] [address] [place] [address], [place] [address] Jun, [facility] [address] [id number] [address] [place] [address], [place] [address] Jun, [facility] [address] [id number] [address] [place] [address], [place] [address] Jun, [facility] [address] [id number] [address] [place] [address], [place] [address] Jun, [facility] [address] [id number] [address] [place] [address], [place] [address] Jun, [facility] [address] [id number] [address] [place] [address], [place] [address] Jun, [facility] [address] [id number] [address] [place] [address], [place] [address] Jun, [facility] [address] [id number] [address] [place] [address], [place] [address] May, [facility] [address] [id number] [address] [place] [address], [place] [address] May, [facility] [address] [id number] [address] [place] [address], [place] [address] May, [facility] [address] [id number] [address] [place] [address], [place] [address] May, [facility] [address] [id number] [address] [place] [address], [place] [address] May, [facility] [address] [id number] [address] [place] [address], [place] [address] May, [facility] [address] [id number] [address] [place] [address], [place] [address] May, [facility] [address] [id number] [address] [place] [address], [place] [address] May, [facility] [address] [id number] [address] [place] [address], [place] [address] May, [facility] [address] [id number] [address] [place] [address], [place] [address] May, [facility] [address] [id number] [address] [place] [address], [place] [address] May, [facility] [address] [id number] [address] [place] [address], [place] [address] 18 May, 2014 [facility] [address] [id number] [address] [place] [address], [place] [address] 18 May, 2014 [facility] [address] [id number] [address] [place] [address], [place] [address] 17 May, 2014 [facility] [address] [id number] [address] [place] [address], [place] [address] 16 May, 2014 [facility] [address] [id number] [address] [place] [address], [place] [address] 16 May, 2014 [facility] [address] [id number] [address] [place] [address], [place] [address] 15 May, 2014 [facility] [address] [id number] [address] [place] [address], [place] [address] 15 May, 2014 [facility] [address] [id number] [address] [place] [address], [place] [address] May, [facility] [address] [id number] [address] [place] [address], [place] [address] May, [facility] [address] [id number] [address] [place] [address], [place] [address] May, [facility] [address] [id number] [address] [place] [address], [place] [address] May, [facility] [address] [id number] [address] [place] [address], [place] [address] May, [facility] [address] [id number] [address] [place] [address], [place] [address] May, [facility] [address] [id number] [address] [place] [address], [place] [address] May, [facility] [address] [id number] [address] [place] [address], [place] [address] May, [facility] [address] [id number] [address] [place] [address], [place] [address] May, [facility] [address] [id number] [address] [place] [address], [place] [address] May, [facility] [address] [id number] [address] [place] [address], [place] [address] May, [facility] [address] [id number] [address] [place] [address], [place] [address] May, [facility] [address] [id number] [address] [place] [address], [place] [address] May, [facility] [address] [id number] [address] [place] [address], [place] [address] May, [facility] [address] [id number] [address] [place] [address], [place] [address] May, [facility] [address] [id number] [address] [place] [address], [place] [address] May, [facility] [address] [id number] [address] [place] [address], [place] [address] Apr, [facility] [address] [id number] [address] [place] [address], [place] [address] Apr, [facility] [address] [id number] [address] [place] [address], [place] [address] Apr, [facility] [address] [id number] [address] [place] [address], [place] [address] Apr, [facility] [address] [id number] [address] [place] [address], [place] [address] Apr, [facility] [address] [id number] [address] [place] [address], [place] [address] Apr, [facility] [address] [id number] [address] [place] [address], [place] [address] Apr, [facility] [address] [id number] [address] [place] [address], [place] [address] Apr, [facility] [address] [id number] [address] [place] [address], [place] [address] Apr, [facility] [address] [id number] [address] [place] [address], [place] [address] Apr, [facility] [address] [id number] [address] [place] [address], [place] [address] Mar, [facility] [address] [id number] [address] [place] [address], [place] [address] Mar, [facility] [address] [id number] [address] [place] [address] [address] Mar, [facility] [address] [id number] [address] [place] [address], [place] [address] 31 Mar, 2013 [facility] [address] [id number] [address] [place] [address], [place] [address] Mar, [facility] [address] [id number] [address] [place] [address], [place] [address] 30 Mar, 2014 [facility] [address] [id number] [address] [place] [address], [place] [address] Mar, [facility] [address] [id number] [address] [place] [address], [place] [address] Mar, [facility] [address] [id number] [address] [place] [address], [place] [address] Mar, [facility] [address] [id number] [address] [place] [address], [place] [address] Mar, [facility] [address] [id number] [address] [place] [id number] Mar, [facility] [address] [id number] [address] [place] [id number] Mar, [facility] [address] [id number] [address] [place] [phone] Mar, [facility] [address] [id number] [address] [place] [phone] Mar, 2013 [facility] [address] [id number] [address] [place] [id number] Mar, 2013 [facility] [address] [id number] [address] [place] [id number] Mar, [facility] [address] [id number] [address] [place] [id number] Mar, [facility] [address] [id number] [address] [place] [id number] Mar, 2013 [facility] [address] [id number] [address] [place] [address], [place] [address] 02 Mar, 2013 [facility] [address] [id number] [address] [place] [address], [place] [address] 02 Mar, 2013 [facility] [address] [id number] [address] [place] [address], [place] [address] 05 Sep, 2013 [facility] [address] [id number] [address] [place] [address], [place] [address] 05 Sep, 2013 [facility] [address] [id number] [address] [place] [address], [place] [address] 04 Sep, 2013 [facility] [address] [id number] [address] [place] [address], [place] [address] 04 Sep, 2013 [facility] [address] [id number] [address] [place] [address], [place] [address] 03 Feb, 2013 [facility] [address] [id number] [address] [place] [address], [place] [address] 03 Feb, 2013 [facility] [address] [id number] [address] [place] [address], [place] [address] 02 Feb, 2013 [facility] [address] [id number] [address] [place] [address], [place] [address] Feb, 2013 [facility] [address] [id number] [address] [place] [address], [place] [address] 02 Feb, 2013 [facility] [address] [id number] [address] [place] [address], [place] [address] Feb, 2013 [facility] [address] [id number] [address] [place] [address], [place] [address] Jan, [facility] [address] [id number] [address] [place] [address], [place] [address] Jan, [facility] [address] [id number] [address] [place] [address], [place] [address] Jan, [facility] [address] [id number] [address] [place] [address], [place] [address] Jan, [facility] [address] [id number] [facility] [address] Jan, [facility] [address] [id number] [address] [place] [address], [place] [address] Jan, [facility] [address] [id number] [address] [place] [address], [place] [address] Jan, [facility] [address] [id number] [address] [place] [address], [place] [address] Jan, [facility] [address] [id number] [address] [place] [address], [place] [address] Jan, [facility] [address] [id number] [address] [place] [address], [place] [address] Jan, [facility] [address] [id number] [address] [place] [address], [place] [address] Jan, [facility] [address] [id number] [address] [place] [address], [place] [address] Jan, [facility] [address] [id number] [address] [place] [address], [place] [address] Dec, [facility] [address] [id number] [address] [place] [address], [place] [address] Dec, [facility] [address] [id number] [address] [place] [address], [place] [address] Dec, [facility] [address] [id number] [address] [place] [address], [place] [address] Dec, [facility] [address] [id number] [address] [place] [address], [place] [address] Dec, [facility] [address] [id number] [address] [place] [address], [place] [address] Dec, [facility] [address] [id number] [address] [place] [address], [place] [address] Dec, [facility] [address] [id number] [address] [place] [address], [place] [address] Dec, [facility] [address] [id number] [facility] [address] Dec, [facility] [address] [id number] [address] [place] [address], [place] [address] Dec, [facility] [address] [id number] [address] [place] [address], [place] [address] Dec, [facility] [address] [id number] [address] [place] [address], [place] [address] Dec, [facility] [address] [id number] [address] [place] [address], [place] [address] Nov, [facility] [address] [id number] [address] [place] [address], [place] [address] Nov, [facility] [address] [id number] [address] [place] [address], [place] [address] Nov, [facility] [address] [id number] [address] [place] [address], [place] [address] Nov, [facility] [address] [id number] [address] [place] [address], [place] [address] Nov, [facility] [address] [id number] [address] [place] [address], [place] [address] Nov, [facility] [address] [id number] [address] [place] [address], [place] [address] Nov, [facility] [address] [id number] [address] [place] [address], [place] [address] Nov, [facility] [address] [id number] [address] [place] [address], [place] [address] Nov, [facility] [address] [id number] [address] [place] [address], [place] [address] Nov, [facility] [address] [id number] [address] [place] [address], [place] [address] Nov, [facility] [address] [id number] [facility] [address] Nov, [facility] [address] [id number] [address] [place] [address], [place] [address] Nov, [facility] [address] [id number] [address] [place] [address], [place] [address] Nov, [facility] [address] [id number] [address] [place] [address], [place] [address] October, [facility] [address] [id number] [address] [place] [address], [place] [address] October, [facility] [address] [id number] [address] [place] [address], [place] [address] October, [facility] [address] [id number] [address] [place] [address], [place] [address] October, [facility] [address] [id number] [address] [place] [address], [place] [address] October, [facility] [address] [id number] [address] [place] [address], [place] [address] October, [facility] [address] [id number] [address] [place] [address], [place] [address] October, [facility] [address] [id number] [address] [place] [address], [place] [address] October, [facility] [address] [id number] [address] [place] [address], [place] [address] October, [facility] [address] [id number] [address] [place] [address], [place] [address] October, [facility] [address] [id number] [address] [place] [address], [place] [address] October, [facility] [address] [id number] [address] [place] [address], [place] [address] October, [facility] [address] [id number] [address] [place] [address], [place] [address] Sep, [facility] [address] [id number] [facility] [address] Sep, [facility] [address] [id number] [address] [place] [address], [place] [address] Sep, [facility] [address] [id number] [facility] [address] Sep, [facility] [address] [id number] [address] [place] [address], [place] [address] Sep, [facility] [address] [id number] [address] [place] [address], [place] [address] Sep, [facility] [address] [id number] [address] [place] [address], [place] [address] Aug, [facility] [address] [id number] [address] [place] [address], [place] [address] Aug, [facility] [address] [id number] [address] [place] [address], [place] [address] Aug, [facility] [address] [id number] [address] [place] [address], [place] [address] Aug, [facility] [address] [id number] [address] [place] [address], [place] [address] Aug, [facility] [address] [id number] [address] [place] [address], [place] [address] Aug, [facility] [address] [id number] [address] [place] [address], [place] [address] Jul, [facility] [address] [id number] [address] [place] [address], [place] [address] Jul, [facility] [address] [id number] [address] [place] [address], [place] [address] Jul, [facility] [address] [id number] [address] [place] [address], [place] [address] Jul, [facility] [address] [id number] [address] [place] [address], [place] [address] 13 Jul, 2013 [facility] [address] [id number] [address] [place] [address], [place] [address] Jul, [facility] [address] [id number] [address] [place] [address], [place] [address] Jul, [facility] [address] [id number] [address] [place] [address], [place] [address] Jul, [facility] [address] [id number] [address] [place] [address], [place] [address] Jul, [facility] [address] [id number] [address] [place] [address], [place] [address] Jul, [facility] [address] [id number] [address] [place] [address], [place] [address] Jun, [facility] [address] [id number] [address] [place] [address], [place] [address] Jun, [facility] [address] [id number] [address] [place] [address], [place] [address] Jun, [facility] [address] [id number] [address] [place] [address], [place] [address] Jun, [facility] [address] [id number] [address] [place] [address], [place] [address] Jun, [facility] [address] [id number] [address] [place] [address], [place] [address] Jun, [facility] [address] [id number] [address] [place] [address], [place] [address] Jun, [facility] [address] [id number] [address] [place] [address], [place] [address] Jun, [facility] [address] [id number] [address] [place] [address], [place] [address] May, [facility] [address] [id number] [address] [place] [address], [place] [address] May, [facility] [address] [id number] [address] [place] [address], [place] [address] May, [facility] [address] [id number] [address] [place] [address], [place] [address] May, [facility] [address] [id number] [address] [place] [address], [place] [address] May, [facility] [address] [id number] [address] [place] [address], [place] [address] May, [facility] [address] [id number] [address] [place] [address], [place] [address] May, [facility] [address] [id number] [address] [place] [address], [place] [address] May, [facility] [address] [id number] [address] [place] [address], [place] [address] Apr, [facility] [address] [id number] [address] [place] [address] Apr, [facility] [address] [id number] [address] [place] [address], [place] [address] Apr, [facility] [address] [id number] [address] [place] [address] Apr, [facility] [address] [id number] [address] [place] [address] Apr, [facility] [address] [id number] [address] [place] [address] Apr, [facility] [address] [id number] [address] [place] [address], [place] [address] Mar, [facility] [address] [id number] [address] [place] [address] Mar, [facility] [address] [id number] [address] [place] [address], [place] [address] Mar, [facility] [address] [id number] [address] [place] [address], [place] [address] Mar, [facility] [address] [id number] [address] [place] [address], [place] [address] Mar, [facility] [address] [id number] [address] [place] [address], [place] [address] Mar, [facility] [address] [id number] [address] [place] [address], [place] [address] Mar, [facility] [address] [id number] [address] [place] [address], [place] [address] 30 Feb, 2012 [facility] [address] [id number] [address] [place] [address], [place] [address] 30 Feb, 2013 [facility] [address] [id number] [address] [place] [address], [place] [address] 27 Feb, 2013 [facility] [address] [id number] [address] [place] [address], [place] [address] Feb, 2012 [facility] [address] [id number] [address] [place] [address], [place] [address] Feb, [facility] [address] [id number] [address] [place] [address], [place] [address] Feb, [facility] [address] [id number] [address] [place] [address], [place] [address] Jan, [facility] [address] [id number] [address] [place] [address], [place] [address] Jan, [facility] [address] [id number] [address] [place] [address], [place] [address] Jan, [facility] [address] [id number] [address] [place] [address], [place] [address] Jan, [facility] [address] [id number] [address] [place] [address], [place] [address] Jan, [facility] [address] [id number] [address] [place] [address], [place] [address] Jan, [facility] [address] [id number] [address] [place] [address], [place] [address] Jan, [facility] [address] [id number] [address] [place] [address], [place] [address] Jan, [facility] [address] [id number] [address] [place] [address], [place] [address] Jan, [facility] [address] [id number] [address] [place] [address], [place] [address] Dec, [facility] [address] [id number] [address] [place] [address], [place] [address] Dec, [facility] [address] [id number] [address] [place] [address], [place] [address] Dec, [facility] [address] [id number] [address] [place] [address], [place] [address] Dec, [facility] [address] [id number] [address] [place] [address], [place] [address] Dec, [facility] [address] [id number] [address] [place] [address], [place] [address] Dec, [facility] [address] [id number] [address] [place] [address], [place] [address] Dec, [facility] [address] [id number] [address] [place] [address], [place] [address] Dec, [facility] [address] [id number] [address] [place] [address], [place] [address] Dec, [facility] [address] [id number] [address] [place] [address], [place] [address] Dec, [facility] [address] [id number] [address] [place] [address], [place] [address] Dec, [facility] [address] [id number] [address] [place] [address], [place] [address] Dec, [facility] [address] [id number] [address] [place] [address], [place] [address] Dec, [facility] [address] [id number] [address] [place] [address], [place] [address] Nov, [facility] [address] [id number] [address] [place] [address], [place] [address] Nov, [facility] [address] [id number] [address] [place] [address], [place] [address] Nov, [facility] [address] [id number] [address] [place] [address], [place] [address] Nov, [facility] [address] [id number] [address] [place] [address], [place] [address] October, [facility] [address] [id number] [address] [place] [address], [place] [address] October, [facility] [address] [id number] [address] [place] [address], [place] [address] October, [facility] [address] [id number] [address] [place] [address], [place] [address] October, [facility] [address] [id number] [address] [place] [address], [place] [address] October, [facility] [address] [id number] [address] [place] [address], [place] [address] October, [facility] [address] [id number] [address] [place] [address], [place] [address] Sep, [facility] [address] [id number] [address] [place] [address], [place] [address] Sep, [facility] [address] [id number] [address] [place] [address], [place] [address] Sep, [facility] [address] [id number] [address] [place] [address], [place] [address] Sep, [facility] [address] [id number] [address] [place] [address], [place] [address] Sep, [facility] [address] [id number] [facility] [address] 16 Sep, 2012 [facility] [address] [id number] [address] [place] [address], [place] [address] 12 Sep, 2012 [facility] [address] [id number] [address] [place] [address], [place] [address] Sep, [facility] [address] [id number] [address] [place] [address], [place] [address] Sep, [facility] [address] [id number] [address] [place] [address], [place] [address] Sep, [facility] [address] [id number] [address] [place] [address], [place] [address] Sep, [facility] [address] [id number] [address] [place] [address], [place] [address] Aug, [facility] [address] [id number] [address] [place] [address], [place] [address] 25 Aug, 2012 [facility] [address] [id number] [address] [place] [address], [place] [address] 25 Aug, 2012 [facility] [address] [id number] [address] [place] [address], [place] [address] 21 Aug, 2012 [facility] [address] [id number] [address] [place] [address], [place] [address] 19 Aug, 2012 [facility] [address] [id number] [address] [place] [address], [place] [address] 18 Aug, 2012 [facility] [address] [id number] [address] [place] [address], [place] [address] 17 Aug, 2012 [facility] [address] [id number] [address] [place] [address], [place] [address] 15 Aug, 2012 [facility] [address] [id number] [address] [place] [address], [place] [address] 15 Aug, 2012 [facility] [address] [id number] [address] [place] [address], [place] [address] Aug, [facility] [address] [id number] [address] [place] [address], [place] [address] Aug, [facility] [address] [id number] [address] [place] [address], [place] [address] Aug, [facility] [address] [id number] [address] [place] [address], [place] [address] Jul, [facility] [address] [id number] [address] [place] [address], [place] [address] Jul, [facility] [address] [id number] [address] [place] [address], [place] [address] Jul, [facility] [address] [id number] [address] [place] [address], [place] [address] Jul, [facility] [address] [id number] [address] [place] [address], [place] [address] Jul, [facility] [address] [id number] [address] [place] [address], [place] [address] Jul, [facility] [address] [id number] [address] [place] [address], [place] [address] Jul, [facility] [address] [id number] [address] [place] [address], [place] [address] Jul, [facility] [address] [id number] [address] [place] [address], [place] [address] Jul, [facility] [address] [id number] [address] [place] [address], [place] [address] Jul, [facility] [address] [id number] [address] [place] [address], [place] [address] May, [facility] [address] [id number] [place] [id number] May, [facility] [address] [id number] [address] [place] [address], [place] [address] May, [facility] [address] [id number] [address] [place] [phone] May, [facility] [address] [facility] [id number] [address] [place] [phone] May, [facility] [address] [facility] [id number] [address] [place] [phone] Apr, [facility] [place] [address] [id number] [place] [id number] Apr, [facility] [address] [facility] [id number] [address] [place] [phone] Apr, [facility] [address] [facility] [id number] [address] [place] [phone] Mar, [facility] [place] [address] [id number] [place] [id number] Mar, [facility] [address] [facility] [id number] [address] [place] [phone] Mar, [facility] [address] [id number] [place] [id number] Feb, [facility] [address] [facility] [id number] [address] [place] [phone] Feb, [facility] [address] [facility] [id number] [address] [place] [phone] Feb, [facility] [place] [address] [id number] [place] [id number] Feb, [facility] [address] [id number] [place] [id number] Feb, [facility] [address] [id number] [place] [id number] Jan, [facility] [address] [id number] [address] [place] [address], [place] [address] Jan, [facility] [place] [address] [id number] [place] [id number] Jan, [facility] [address] [id number] [place] [id number] Jan, [facility] [place] [address] [id number] [place] [id number] Jan, [facility] [address] [facility] [id number] [address] [place] [address], [place] [address] Jan, [facility] [address] [facility] [id number] [address] [place] [address], [place] [address] Jan, [facility] [address] [facility] [id number] [address] [place] [address], [place] [address] Aug, [facility] [place] [address] [id number] [place] [id number] Aug, [facility] [address] [facility] [id number] [address] [place] [address], [place] [address] Jul, [facility] [address] [facility] [id number] [address] [place] [address], [place] [address] Jul, [facility] [address] [facility] [id number] [address] [place] [address], [place] [address] Jul, [facility] [place] [address] [id number] [place] [id number] Jul, [facility] [address] [facility] [id number] [address] [place] [address], [place] [address] Jul, [facility] [place] [address] [id number] [place] [id number] Jul, [facility] [address] [facility] [id number] [address] [place] [address], [place] [address] Jul, [facility] [place] [address] [id number] [place] [id number] Jul, [facility] [place] [address] [id number] [place] [id number] Jul, [facility] [place] [address] [id number] [place] [id number] Jul, [facility] [address] [facility] [id number] [address] [place] [address], [place] [address] May, [facility] [address] [id number] [address] [place] [phone] May, [facility] [address] [id number] [address] [place] [phone] May, [facility] [address] [id number] [address] [place] [phone] Apr, [facility] [address] [id number] [address] [place] [phone] Jan, [facility] [address] [id number] [address] [place] [phone] Jan, [facility] [address] [id number] [address] [place] [phone] Dec, [facility] [address] [id number] [address] [place] [phone] Dec, [facility] [address] [id number] [address] [place] [phone] May, [facility] [address] [id number] [address] [place] [phone] Mar, [facility] [address] [id number] [address] [place] [phone] Mar, [facility] [address] [id number] [address] [place] [phone] Jan, IMMUNIZATIONS No Known Immunizations SOCIAL HISTORY Never Assessed REASON FOR VISIT PLAN OF CARE VITAL SIGNS MEDICATIONS Unknown Medications RESULTS No Results PROCEDURES Procedure Date Ordered Result Body Site BLOOD PRESSURE, MEASURED Jun 30, 2014 PROTHROMBIN TIME Jun 30, 2014 INSTRUCTIONS MEDICATIONS ADMINISTERED No Known Medications [...]
--- OUTSIDE RECORDS SUMMARY | 2020-01-28 12:44 | XMS REPORT ---
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 Active 957042765 Problem History of venous thromboembolism V12.51 Active 217581782 Problem Cellulitis of unspecified part of limb L03.119 Active 748083446 Problem Gastroesophageal reflux disease without esophagitis K21.9 Active 890990031 Problem History of pulmonary embolism Z86.711 Active 072500029 Problem Pseudotumor cerebri G93.2 Active 30977354 Problem History of DVT (deep vein thrombosis) Z86.718 Active 276203580 ALLERGIES No Information ENCOUNTERS Encounter Location Date Diagnosis [place] [id number] [facility] [id number] [address] [place] [address] Apr, assisted (current) use of 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 Z79.01 [facility] [address] [facility] [id number] [address] [place] [address] Apr, assisted 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.01 [facility] [address] [facility] [id number] [address] [place] [address] Apr, Cellulitis of unspecified pa rt of limb L03.119 ; Allergic contact dermatitis due to adhesives L23.1 and Chronic pain syndrome G89.4 [facility] [address] [facility] [id number] [address] [place] [address] Apr, [place] [address] [place] [id number] [address] [place] [address] Apr, 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 ; Cellulitis of unspecified part of limb L03.119 ; Chronic pain syndrome G89.4 and Anxiety F41.9 [facility] [address] [place] [id number] [address] [place] [address] 16 Apr, 2015 [facility] [address] [place] [id number] [place] [address] Apr, [place] [address] [place] [id number] [place] [address] Mar, [place] [address] [address] Mar, [place] [address] [address] Mar, Sore throat J02.9 ; Gastroes ophageal reflux disease without esophagitis K21.9 ; Pseudotumor cerebri G93.2 ; Chronic pain syndrome G89.4 ; Choriocarcinoma C58 ; History of pulmonary embolism Z86.711 ; History of DVT (deep vein thrombosis) Z86.718 ; Anxiety F41.9 and Tachycardia R00.0 [place] [address] [address] Feb, Anxiety 300.00 and Chronic p ain 338.29 [place] [address] [place] [id number] [address] [place] [address] Feb, [place] [address] [place] [id number] [address] [place] [address] Feb, [place] [address] [address] Jan, 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 therapy V58.61 and Dysuria 788.1 [place] [address] [place] [id number] [place] [address] Jan, Dysuria 788.1 [facility] [address] [place] [id number] [address] [place] [address] Jan, Anxiety 300.00 and Chronic p ain 338.29 [facility] [address] [place] [id number] [place] [address] Jan, [facility] [address] [address] Jan, [facility] [address] [address] Jan, [place] [address] [address] Dec, Weakness 780.79 [place] [address] [address] Dec, assisted 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 therapy V58.61 [place] [address] [address] Dec, Palpitations 785.1 ; Tremor 781.0 ; Weakness 780.79 ; assisted current use of anticoagulant therapy V58.61 and Yeast vaginitis 112.1 [place] [address] [place] [id number] [address] [place] [address] Dec, [place] [address] [address] Dec, Cervicalgia 723.1 ; Tachycar yoseph 785.0 ; Pseudotumor cerebri 348.2 and History of venous thromboembolism V12.51 [place] [address] [address] Nov, [place] [address] [address] Nov, [place] [address] [address] Nov, Tachycardia 785.0 ; Pseudotu mor cerebri 348.2 ; Anxiety 300.00 and History of venous thromboembolism V12.51 [facility] [address] [id number] [address] [place] [address] Nov, [facility] [address] [id number] [address] [place] [address] 18 Nov, 2014 [facility] [address] [id number] [address] [place] [address] Nov, [facility] [address] [id number] [address] [place] [address] Nov, [facility] [address] [facility] [id number] [address] [place] [address] Nov, [facility] [address] [facility] [id number] [address] [place] [address] Nov, [facility] [address] [facility] [id number] [address] [place] [address] Nov, [facility] [address] [facility] [id number] [address] [place] [address] October, [facility] [address] [facility] [id number] [address] [place] [address] October, [facility] [address] [place] [id number] [address] [place] [address] October, Pain in thoracic spine 724.1 and Tachycardia 785.0 [facility] [address] [id number] [address] [place] [address] October, [facility] [address] [id number] [address] [place] [address] October, [facility] [address] [facility] [id number] [address] [place] [address] 14 Sep, 2014 [facility] [address] [facility] [id number] [address] [place] [address] Sep, [facility] [address] [id number] [facility] [place] [address] Aug, [facility] [address] [id number] [address] [place] [address], [place] [address] Aug, [facility] [address] [id number] [address] [place] [address], [place] [address] Aug, [facility] [address] [id number] [address] [place] [address], [place] [address] Aug, [facility] [address] [id number] [address] [place] [address], [place] [address] Aug, [facility] [address] [id number] [address] [place] [address], [place] [address] Aug, [facility] [address] [id number] [address] [place] [address], [place] [address] Aug, [facility] [address] [id number] [address] [place] [address], [place] [address] Aug, [facility] [address] [id number] [address] [place] [address], [place] [address] Aug, [facility] [address] [id number] [address] [place] [address], [place] [address] Aug, [facility] [address] [id number] [address] [place] [address], [place] [address] Aug, [facility] [address] [id number] [address] [place] [address], [place] [address] Aug, 2014 [facility] [address] [id number] [address] [place] [address], [place] [address] Jul, [facility] [address] [id number] [address] [place] [address], [place] [address] Jul, [facility] [address] [id number] [address] [place] [address], [place] [address] Jul, [facility] [address] [id number] [address] [place] [address], [place] [address] Jul, [facility] [address] [id number] [address] [place] [address], [place] [address] 23 Jul, 2014 [facility] [address] [id number] [address] [place] [address], [place] [address] 23 Jul, 2014 [facility] [address] [id number] [address] [place] [address], [place] [address] 23 Jul, 2014 [facility] [address] [id number] [address] [place] [address], [place] [address] 23 Jul, 2014 [facility] [address] [id number] [address] [place] [address], [place] [address] 20 Jul, 2014 [facility] [address] [id number] [address] [place] [address], [place] [address] 20 Jul, 2014 [facility] [address] [id number] [address] [place] [address], [place] [address] 19 Jul, 2014 [facility] [address] [id number] [address] [place] [address], [place] [address] 19 Jul, 2014 [facility] [address] [id number] [address] [place] [address], [place] [address] 17 Jul, 2014 [facility] [address] [id number] [address] [place] [address], [place] [address] 17 Jul, 2014 [facility] [address] [id number] [address] [place] [address], [place] [address] 16 Jul, 2014 [facility] [address] [id number] [address] [place] [address], [place] [address] 16 Jul, 2014 [facility] [address] [id number] [address] [place] [address], [place] [address] 16 Jul, 2014 [facility] [address] [id number] [address] [place] [address] 16 Jul, 2014 [facility] [address] [id number] [address] [place] [address] 13 Jul, 2014 [facility] [address] [id number] [address] [place] [address], [place] [address] Jul, [facility] [address] [id number] [address] [place] [address], [place] [address] Jul, [facility] [address] [id number] [address] [place] [address], [place] [address] Jul, 2014 [facility] [address] [id number] [address] [place] [address], [place] [address] Jul, 2014 [facility] [address] [id number] [address] [place] [address], [place] [address] Jul, [facility] [address] [id number] [address] [place] [address], [place] [address] Jul, [facility] [address] [id number] [address] [place] [address], [place] [address] Jul, [facility] [address] [id number] [address] [place] [address], [place] [address] Jul, [facility] [address] [id number] [address] [place] [address], [place] [address] Jul, [facility] [address] [id number] [address] [place] [address], [place] [address] Jul, [facility] [address] [id number] [address] [place] [address], [place] [address] Jul, [facility] [address] [id number] [address] [place] [address], [place] [address] Jun, [facility] [address] [id number] [address] [place] [address], [place] [address] Jun, [facility] [address] [id number] [address] [place] [address], [place] [address] Jun, [facility] [address] [id number] [address] [place] [address], [place] [address] Jun, [facility] [address] [id number] [address] [place] [address], [place] [address] Jun, [facility] [address] [id number] [address] [place] [address], [place] [address] Jun, [facility] [address] [id number] [address] [place] [address], [place] [address] Jun, [facility] [address] [id number] [address] [place] [address], [place] [address] Jun, [facility] [address] [id number] [address] [place] [address], [place] [address] Jun, [facility] [address] [id number] [address] [place] [address], [place] [address] Jun, [facility] [address] [id number] [address] [place] [address], [place] [address] Jun, [facility] [address] [id number] [address] [place] [address], [place] [address] Jun, [facility] [address] [id number] [address] [place] [address], [place] [address] Jun, [facility] [address] [id number] [address] [place] [address], [place] [address] Jun, [facility] [address] [id number] [address] [place] [address], [place] [address] Jun, [facility] [address] [id number] [address] [place] [address], [place] [address] Jun, [facility] [address] [id number] [address] [place] [address], [place] [address] Jun, [facility] [address] [id number] [address] [place] [address], [place] [address] Jun, [facility] [address] [id number] [address] [place] [address], [place] [address] Jun, [facility] [address] [id number] [address] [place] [address], [place] [address] Jun, [facility] [address] [id number] [address] [place] [address], [place] [address] May, [facility] [address] [id number] [address] [place] [address], [place] [address] May, [facility] [address] [id number] [address] [place] [address], [place] [address] May, [facility] [address] [id number] [address] [place] [address], [place] [address] May, [facility] [address] [id number] [address] [place] [address], [place] [address] May, [facility] [address] [id number] [address] [place] [address], [place] [address] May, [facility] [address] [id number] [address] [place] [address], [place] [address] May, [facility] [address] [id number] [address] [place] [address], [place] [address] May, [facility] [address] [id number] [address] [place] [address], [place] [address] May, [facility] [address] [id number] [address] [place] [address], [place] [address] May, [facility] [address] [id number] [address] [place] [address], [place] [address] May, [facility] [address] [id number] [address] [place] [address], [place] [address] 18 May, 2014 [facility] [address] [id number] [address] [place] [address], [place] [address] 18 May, 2014 [facility] [address] [id number] [address] [place] [address], [place] [address] 17 May, 2014 [facility] [address] [id number] [address] [place] [address], [place] [address] 16 May, 2014 [facility] [address] [id number] [address] [place] [address], [place] [address] 16 May, 2014 [facility] [address] [id number] [address] [place] [address], [place] [address] 15 May, 2014 [facility] [address] [id number] [address] [place] [address], [place] [address] 15 May, 2014 [facility] [address] [id number] [address] [place] [address], [place] [address] May, [facility] [address] [id number] [address] [place] [address], [place] [address] May, [facility] [address] [id number] [address] [place] [address], [place] [address] May, [facility] [address] [id number] [address] [place] [address], [place] [address] May, [facility] [address] [id number] [address] [place] [address], [place] [address] May, [facility] [address] [id number] [address] [place] [address], [place] [address] May, [facility] [address] [id number] [address] [place] [address], [place] [address] May, [facility] [address] [id number] [address] [place] [address], [place] [address] May, [facility] [address] [id number] [address] [place] [address], [place] [address] May, [facility] [address] [id number] [address] [place] [address], [place] [address] May, [facility] [address] [id number] [address] [place] [address], [place] [address] May, [facility] [address] [id number] [address] [place] [address], [place] [address] May, [facility] [address] [id number] [address] [place] [address], [place] [address] May, [facility] [address] [id number] [address] [place] [address], [place] [address] May, [facility] [address] [id number] [address] [place] [address], [place] [address] May, [facility] [address] [id number] [address] [place] [address], [place] [address] May, [facility] [address] [id number] [address] [place] [address], [place] [address] Apr, [facility] [address] [id number] [address] [place] [address], [place] [address] Apr, [facility] [address] [id number] [address] [place] [address], [place] [address] Apr, [facility] [address] [id number] [address] [place] [address], [place] [address] Apr, [facility] [address] [id number] [address] [place] [address], [place] [address] Apr, [facility] [address] [id number] [address] [place] [address], [place] [address] Apr, [facility] [address] [id number] [address] [place] [address], [place] [address] Apr, [facility] [address] [id number] [address] [place] [address], [place] [address] Apr, [facility] [address] [id number] [address] [place] [address], [place] [address] Apr, [facility] [address] [id number] [address] [place] [address], [place] [address] Apr, [facility] [address] [id number] [address] [place] [address], [place] [address] Mar, [facility] [address] [id number] [address] [place] [address], [place] [address] Mar, [facility] [address] [id number] [address] [place] [address] [address] Mar, [facility] [address] [id number] [address] [place] [address], [place] [address] 31 Mar, 2013 [facility] [address] [id number] [address] [place] [address], [place] [address] Mar, [facility] [address] [id number] [address] [place] [address], [place] [address] 30 Mar, 2014 [facility] [address] [id number] [address] [place] [address], [place] [address] Mar, [facility] [address] [id number] [address] [place] [address], [place] [address] Mar, [facility] [address] [id number] [address] [place] [address], [place] [address] Mar, [facility] [address] [id number] [address] [place] [address], [place] [address] Mar, [facility] [address] [id number] [address] [place] [address] Mar, [facility] [address] [id number] [address] [place] [address] Mar, [facility] [address] [id number] [address] [place] [address] Mar, [facility] [address] [id number] [address] [place] [address] Mar, 2013 [facility] [address] [id number] [address] [place] [address] Mar, 2013 [facility] [address] [id number] [address] [place] [address] Mar, [facility] [address] [id number] [address] [place] [address] Mar, [facility] [address] [id number] [address] [place] [id number] Mar, 2013 [facility] [address] [id number] [address] [place] [address], [place] [address] 02 Mar, 2013 [facility] [address] [id number] [address] [place] [address], [place] [address] 02 Mar, 2013 [facility] [address] [id number] [address] [place] [address], [place] [address] 05 Sep, 2013 [facility] [address] [id number] [address] [place] [address], [place] [address] 05 Sep, 2013 [facility] [address] [id number] [address] [place] [address], [place] [address] 04 Sep, 2013 [facility] [address] [id number] [address] [place] [address], [place] [address] 04 Sep, 2013 [facility] [address] [id number] [address] [place] [address], [place] [address] 03 Feb, 2013 [facility] [address] [id number] [address] [place] [address], [place] [address] 03 Feb, 2013 [facility] [address] [id number] [address] [place] [address], [place] [address] 02 Feb, 2013 [facility] [address] [id number] [address] [place] [address], [place] [address] Feb, 2013 [facility] [address] [id number] [address] [place] [address], [place] [address] 02 Feb, 2013 [facility] [address] [id number] [address] [place] [address], [place] [address] Feb, 2013 [facility] [address] [id number] [address] [place] [address], [place] [address] Jan, [facility] [address] [id number] [address] [place] [address], [place] [address] Jan, [facility] [address] [id number] [address] [place] [address], [place] [address] Jan, [facility] [address] [id number] [address] [place] [address], [place] [address] Jan, [facility] [address] [id number] [facility] [place] [address] Jan, [facility] [address] [id number] [address] [place] [address], [place] [address] Jan, [facility] [address] [id number] [address] [place] [address], [place] [address] Jan, [facility] [address] [id number] [address] [place] [address], [place] [address] Jan, [facility] [address] [id number] [address] [place] [address], [place] [address] Jan, [facility] [address] [id number] [address] [place] [address], [place] [address] Jan, [facility] [address] [id number] [address] [place] [address], [place] [address] Jan, [facility] [address] [id number] [address] [place] [address], [place] [address] Jan, [facility] [address] [id number] [address] [place] [address], [place] [address] Dec, [facility] [address] [id number] [address] [place] [address], [place] [address] Dec, [facility] [address] [id number] [address] [place] [address], [place] [address] Dec, [facility] [address] [id number] [address] [place] [address], [place] [address] Dec, [facility] [address] [id number] [address] [place] [address], [place] [address] Dec, [facility] [address] [id number] [address] [place] [address], [place] [address] Dec, [facility] [address] [id number] [address] [place] [address], [place] [address] Dec, [facility] [address] [id number] [address] [place] [address], [place] [address] Dec, [facility] [address] [id number] [facility] [place] [address] Dec, [facility] [address] [id number] [address] [place] [address], [place] [address] Dec, [facility] [address] [id number] [address] [place] [address], [place] [address] Dec, [facility] [address] [id number] [address] [place] [address], [place] [address] Dec, [facility] [address] [id number] [address] [place] [address], [place] [address] Nov, [facility] [address] [id number] [address] [place] [address], [place] [address] Nov, [facility] [address] [id number] [address] [place] [address], [place] [address] Nov, [facility] [address] [id number] [address] [place] [address], [place] [address] Nov, [facility] [facility] [address] [id number] [address] [place] [address], [place] [address] Nov, [facility] [address] [id number] [address] [place] [address], [place] [address] Nov, [facility] [address] [id number] [address] [place] [address], [place] [address] Nov, [facility] [address] [id number] [address] [place] [address], [place] [address] Nov, [facility] [address] [id number] [address] [place] [address], [place] [address] Nov, [facility] [address] [id number] [address] [place] [address], [place] [address] Nov, [facility] [address] [id number] [address] [place] [address], [place] [address] Nov, [facility] [address] [id number] [facility] [place] [address] Nov, [facility] [address] [id number] [address] [place] [address], [place] [address] Nov, [facility] [address] [id number] [address] [place] [address], [place] [address] Nov, [facility] [address] [id number] [address] [place] [address], [place] [address] October, [facility] [address] [id number] [address] [place] [address], [place] [address] October, [facility] [address] [id number] [address] [place] [address], [place] [address] October, [facility] [address] [id number] [address] [place] [address], [place] [address] October, [facility] [address] [id number] [address] [place] [address], [place] [address] October, [facility] [address] [id number] [address] [place] [address], [place] [address] October, [facility] [address] [id number] [address] [place] [address], [place] [address] October, [facility] [address] [id number] [address] [place] [address], [place] [address] October, [facility] [address] [id number] [address] [place] [address], [place] [address] October, [facility] [address] [id number] [address] [place] [address], [place] [address] October, [facility] [address] [id number] [address] [place] [address], [place] [address] October, [facility] [address] [id number] [address] [place] [address], [place] [address] October, [facility] [address] [id number] [address] [place] [address], [place] [address] Sep, [facility] [address] [id number] [facility] [place] [address] Sep, [facility] [address] [id number] [address] [place] [address], [place] [address] Sep, [facility] [address] [id number] [facility] [place] [address] Sep, [facility] [address] [id number] [address] [place] [address], [place] [address] Sep, [facility] [address] [id number] [address] [place] [address], [place] [address] Sep, [facility] [address] [id number] [address] [place] [address], [place] [address] Aug, [facility] [address] [id number] [address] [place] [address], [place] [address] Aug, [facility] [address] [id number] [address] [place] [address], [place] [address] Aug, [facility] [address] [id number] [address] [place] [address], [place] [address] Aug, [facility] [address] [id number] [address] [place] [address], [place] [address] Aug, [facility] [address] [id number] [address] [place] [address], [place] [address] Aug, [facility] [address] [id number] [address] [place] [address], [place] [address] Jul, [facility] [address] [id number] [address] [place] [address], [place] [address] Jul, [facility] [address] [id number] [address] [place] [address], [place] [address] Jul, [facility] [address] [id number] [address] [place] [address], [place] [address] Jul, [facility] [address] [id number] [address] [place] [address], [place] [address] 13 Jul, 2013 [facility] [address] [id number] [address] [place] [address], [place] [address] Jul, [facility] [address] [id number] [address] [place] [address], [place] [address] Jul, [facility] [address] [id number] [address] [place] [address], [place] [address] Jul, [facility] [address] [id number] [address] [place] [address], [place] [address] Jul, [facility] [address] [id number] [address] [place] [address], [place] [address] Jul, [facility] [address] [id number] [address] [place] [address], [place] [address] Jun, [facility] [address] [id number] [address] [place] [address], [place] [address] Jun, [facility] [address] [id number] [address] [place] [address], [place] [address] Jun, [facility] [address] [id number] [address] [place] [address], [place] [address] Jun, [facility] [address] [id number] [address] [place] [address], [place] [address] Jun, [facility] [address] [id number] [address] [place] [address], [place] [address] Jun, [facility] [address] [id number] [address] [place] [address], [place] [address] Jun, [facility] [address] [id number] [address] [place] [address], [place] [address] Jun, [facility] [address] [id number] [address] [place] [address], [place] [address] May, [facility] [address] [id number] [address] [place] [address], [place] [address] May, [facility] [address] [id number] [address] [place] [address], [place] [address] May, [facility] [address] [id number] [address] [place] [address], [place] [address] May, [facility] [address] [id number] [address] [place] [address], [place] [address] May, [facility] [address] [id number] [address] [place] [address], [place] [address] May, [facility] [address] [id number] [address] [place] [address], [place] [address] May, [facility] [address] [id number] [address] [place] [address], [place] [address] May, [facility] [address] [id number] [address] [place] [address], [place] [address] Apr, [facility] [address] [id number] [address] [place] [address] Apr, [facility] [address] [id number] [address] [place] [address], [place] [address] Apr, [facility] [address] [id number] [address] [place] [address] Apr, [facility] [address] [id number] [address] [place] [address] Apr, [facility] [address] [id number] [address] [place] [address] Apr, [facility] [address] [id number] [address] [place] [address], [place] [address] Mar, [facility] [address] [id number] [address] [place] [address] Mar, [facility] [address] [id number] [address] [place] [address], [place] [address] Mar, [facility] [address] [id number] [address] [place] [address], [place] [address] Mar, [facility] [address] [id number] [address] [place] [address], [place] [address] Mar, [facility] [address] [id number] [address] [place] [address], [place] [address] Mar, [facility] [address] [id number] [address] [place] [address], [place] [address] Mar, [facility] [address] [id number] [address] [place] [address], [place] [address] 30 Feb, 2012 [facility] [address] [id number] [address] [place] [address], [place] [address] 30 Feb, 2013 [facility] [address] [id number] [address] [place] [address], [place] [address] 27 Feb, 2013 [facility] [address] [id number] [address] [place] [address], [place] [address] Feb, 2012 [facility] [address] [id number] [address] [place] [address], [place] [address] Feb, [facility] [address] [id number] [address] [place] [address], [place] [address] Feb, [facility] [address] [id number] [address] [place] [address], [place] [address] Jan, [facility] [address] [id number] [address] [place] [address], [place] [address] Jan, [facility] [address] [id number] [address] [place] [address], [place] [address] Jan, [facility] [address] [id number] [address] [place] [address], [place] [address] Jan, [facility] [address] [id number] [address] [place] [address], [place] [address] Jan, [facility] [address] [id number] [address] [place] [address], [place] [address] Jan, [facility] [address] [id number] [address] [place] [address], [place] [address] Jan, [facility] [address] [id number] [address] [place] [address], [place] [address] Jan, [facility] [address] [id number] [address] [place] [address], [place] [address] Jan, [facility] [address] [id number] [address] [place] [address], [place] [address] Dec, [facility] [address] [id number] [address] [place] [address], [place] [address] Dec, [facility] [address] [id number] [address] [place] [address], [place] [address] Dec, [facility] [address] [id number] [address] [place] [address], [place] [address] Dec, [facility] [address] [id number] [address] [place] [address], [place] [address] Dec, [facility] [address] [id number] [address] [place] [address], [place] [address] Dec, [facility] [address] [id number] [address] [place] [address], [place] [address] Dec, [facility] [address] [id number] [address] [place] [address], [place] [address] Dec, [facility] [address] [id number] [address] [place] [address], [place] [address] Dec, [facility] [address] [id number] [address] [place] [address], [place] [address] Dec, [facility] [address] [id number] [address] [place] [address], [place] [address] Dec, [facility] [address] [id number] [address] [place] [address], [place] [address] Dec, [facility] [address] [id number] [address] [place] [address], [place] [address] Dec, [facility] [address] [id number] [address] [place] [address], [place] [address] Nov, [facility] [address] [id number] [address] [place] [address], [place] [address] Nov, [facility] [address] [id number] [address] [place] [address], [place] [address] Nov, [facility] [address] [id number] [address] [place] [address], [place] [address] Nov, [facility] [address] [id number] [address] [place] [address], [place] [address] October, [facility] [address] [id number] [address] [place] [address], [place] [address] October, [facility] [address] [id number] [address] [place] [address], [place] [address] October, [facility] [address] [id number] [address] [place] [address], [place] [address] October, [facility] [address] [id number] [address] [place] [address], [place] [address] October, [facility] [address] [id number] [address] [place] [address], [place] [address] October, [facility] [address] [id number] [address] [place] [address], [place] [address] Sep, [facility] [address] [id number] [address] [place] [address], [place] [address] Sep, [facility] [address] [id number] [address] [place] [address], [place] [address] Sep, [facility] [address] [id number] [address] [place] [address], [place] [address] Sep, [facility] [address] [id number] [address] [place] [address], [place] [address] Sep, [facility] [address] [id number] [facility] [place] [address] 16 Sep, 2012 [facility] [address] [id number] [address] [place] [address], [place] [address] 12 Sep, 2012 [facility] [address] [id number] [address] [place] [address], [place] [address] Sep, [facility] [address] [id number] [address] [place] [address], [place] [address] Sep, [facility] [address] [id number] [address] [place] [address], [place] [address] Sep, [facility] [address] [id number] [address] [place] [address], [place] [address] Sep, [facility] [address] [id number] [address] [place] [address], [place] [address] Aug, [facility] [address] [id number] [address] [place] [address], [place] [address] 25 Aug, 2012 [facility] [address] [id number] [address] [place] [address], [place] [address] 25 Aug, 2012 [facility] [address] [id number] [address] [place] [address], [place] [address] 21 Aug, 2012 [facility] [address] [id number] [address] [place] [address], [place] [address] 19 Aug, 2012 [facility] [address] [id number] [address] [place] [address], [place] [address] 18 Aug, 2012 [facility] [address] [id number] [address] [place] [address], [place] [address] 17 Aug, 2012 [facility] [address] [id number] [address] [place] [address], [place] [address] 15 Aug, 2012 [facility] [address] [id number] [address] [place] [address], [place] [address] 15 Aug, 2012 [facility] [address] [id number] [address] [place] [address], [place] [address] Aug, [facility] [address] [id number] [address] [place] [address], [place] [address] Aug, [facility] [address] [id number] [address] [place] [address], [place] [address] Aug, [facility] [address] [id number] [address] [place] [address], [place] [address] Jul, [facility] [address] [id number] [address] [place] [address], [place] [address] Jul, [facility] [address] [id number] [address] [place] [address], [place] [address] Jul, [facility] [address] [id number] [address] [place] [address], [place] [address] Jul, [facility] [address] [id number] [address] [place] [address], [place] [address] Jul, [facility] [address] [id number] [address] [place] [address], [place] [address] Jul, [facility] [address] [id number] [address] [place] [address], [place] [address] Jul, [facility] [address] [id number] [address] [place] [address], [place] [address] Jul, [facility] [address] [id number] [address] [place] [address], [place] [address] Jul, [facility] [address] [id number] [address] [place] [address], [place] [address] Jul, [facility] [address] [id number] [address] [place] [address], [place] [address] May, [facility] [address] [id number] [place] [id number] May, [facility] [address] [id number] [address] [place] [address], [place] [address] May, [facility] [address] [id number] [address] [place] [address] May, [facility] [address] [facility] [id number] [address] [place] [address] May, [facility] [address] [facility] [id number] [address] [place] [address] Apr, [facility] [address] [id number] [place] [id number] Apr, [facility] [address] [facility] [id number] [address] [place] [address] Apr, [facility] [address] [facility] [id number] [address] [place] [address] Mar, [facility] [address] [id number] [place] [id number] Mar, [facility] [address] [facility] [id number] [address] [place] [address] Mar, [facility] [address] [id number] [place] [id number] Feb, [facility] [address] [facility] [id number] [address] [place] [address] Feb, [facility] [address] [facility] [id number] [address] [place] [address] Feb, [facility] [place] [address] [id number] [place] [id number] Feb, [facility] [address] [id number] [place] [id number] Feb, [facility] [address] [id number] [place] [id number] Jan, [facility] [address] [id number] [address] [place] [address], [place] [address] Jan, [facility] [place] [address] [id number] [place] [id number] Jan, [facility] [address] [id number] [place] [id number] Jan, [facility] [address] [id number] [place] [id number] Jan, [facility] [address] [facility] [id number] [address] [place] [address], [place] [address] Jan, [facility] [address] [facility] [id number] [address] [place] [address], [place] [address] Jan, [facility] [address] [facility] [id number] [address] [place] [address], [place] [address] Aug, [facility] [address] [id number] [place] [id number] Aug, [facility] [address] [facility] [id number] [address] [place] [address], [place] [address] Jul, [facility] [address] [facility] [id number] [address] [place] [address], [place] [address] Jul, [facility] [address] [facility] [id number] [address] [place] [address], [place] [address] Jul, [facility] [address] [id number] [place] [id number] Jul, [facility] [address] [facility] [id number] [address] [place] [address], [place] [address] Jul, [facility] [address] [id number] [place] [id number] Jul, [facility] [address] [facility] [id number] [address] [place] [address], [place] [id number] Jul, [facility] [address] [id number] [place] [id number] Jul, [facility] [address] [id number] [place] [id number] Jul, [facility] [address] [id number] [place] [id number] Jul, [facility] [address] [facility] [id number] [address] [place] [address], [place] [id number] May, [facility] [address] [id number] [address] [place] [id number] May, [facility] [address] [id number] [address] [place] [id number] May, [facility] [address] [id number] [address] [place] [phone] Apr, [facility] [address] [id number] [address] [place] [phone] Jan, [facility] [address] [id number] [address] [place] [phone] Jan, [facility] [address] [id number] [address] [place] [phone] Dec, [facility] [address] [id number] [address] [place] [id number] Dec, [facility] [address] [id number] [address] [place] [phone] May, [facility] [address] [id number] [address] [place] [id number] Mar, [facility] [address] [id number] [address] [place] [id number] Mar, [facility] [address] [facility] [id number] [address] [place] [phone] Jan, IMMUNIZATIONS No Known Immunizations SOCIAL HISTORY Never Assessed REASON FOR VISIT PLAN OF CARE VITAL SIGNS MEDICATIONS Unknown Medications RESULTS No Results PROCEDURES Procedure Date Ordered Result Body Site PROTHROMBIN TIME Aug 04, 2014 VENIPUNCT, ROUTINE* Aug 04, 2014 INSTRUCTIONS MEDICATIONS ADMINISTERED No Known Medications [...]
--- OUTSIDE RECORDS SUMMARY | 2020-01-28 12:44 | XMS REPORT ---
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 615030121 Problem History of venous thromboembolism V12.51 Active 248121767 Problem Cellulitis of unspecified part of limb L03.119 Active 561692844 Problem Gastroesophageal reflux disease without esophagitis K21.9 Active 378335047 Problem History of pulmonary embolism Z86.711 Active 349872955 Problem Pseudotumor cerebri G93.2 Active 60472133 Problem History of DVT (deep vein thrombosis) Z86.718 Active 116411613 ALLERGIES No Information ENCOUNTERS Encounter Location Date Diagnosis [place] [id number] [facility] [id number] [address] [place] [address] Apr, longterm (current) use of 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 Z79.01 [facility] [address] [facility] [id number] [address] [place] [address] Apr, longterm 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.01 [facility] [address] [facility] [id number] [address] [place] [address] Apr, Cellulitis of unspecified pa rt of limb L03.119 ; Allergic contact dermatitis due to adhesives L23.1 and Chronic pain syndrome G89.4 [facility] [address] [facility] [id number] [address] [place] [address] Apr, [place] [address] [place] [id number] [address] [place] [address] Apr, 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 ; Cellulitis of unspecified part of limb L03.119 ; Chronic pain syndrome G89.4 and Anxiety F41.9 [facility] [address] [place] [id number] [address] [place] [address] 16 Apr, 2015 [facility] [address] [place] [id number] [place] [address] Apr, [place] [address] [place] [id number] [place] [address] Mar, [place] [address] [address] Mar, [place] [address] [address] Mar, Sore throat J02.9 ; Gastroes ophageal reflux disease without esophagitis K21.9 ; Pseudotumor cerebri G93.2 ; Chronic pain syndrome G89.4 ; Choriocarcinoma C58 ; History of pulmonary embolism Z86.711 ; History of DVT (deep vein thrombosis) Z86.718 ; Anxiety F41.9 and Tachycardia R00.0 [place] [address] [address] Feb, Anxiety 300.00 and Chronic p ain 338.29 [place] [address] [place] [id number] [address] [place] [address] Feb, [place] [address] [place] [id number] [address] [place] [address] Feb, [place] [address] [address] Jan, 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 V58.61 and Dysuria 788.1 [place] [address] [place] [id number] [place] [address] Jan, Dysuria 788.1 [facility] [address] [place] [id number] [address] [place] [address] Jan, Anxiety 300.00 and Chronic p ain 338.29 [facility] [address] [place] [id number] [place] [address] Jan, [facility] [address] [address] Jan, [facility] [address] [address] Jan, [place] [address] [address] Dec, Weakness 780.79 [place] [address] [address] Dec, longterm 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 therapy V58.61 [place] [address] [address] Dec, Palpitations 785.1 ; Tremor 781.0 ; Weakness 780.79 ; longterm current use of anticoagulant therapy V58.61 and Yeast vaginitis 112.1 [place] [address] [place] [id number] [address] [place] [address] Dec, [place] [address] [address] Dec, Cervicalgia 723.1 ; Tachycar yoseph 785.0 ; Pseudotumor cerebri 348.2 and History of venous thromboembolism V12.51 [place] [address] [address] Nov, [place] [address] [address] Nov, [place] [address] [address] Nov, Tachycardia 785.0 ; Pseudotu mor cerebri 348.2 ; Anxiety 300.00 and History of venous thromboembolism V12.51 [facility] [address] [id number] [address] [place] [address] Nov, [facility] [address] [id number] [address] [place] [address] 18 Nov, 2014 [facility] [address] [id number] [address] [place] [address] Nov, [facility] [address] [id number] [address] [place] [address] Nov, [facility] [address] [facility] [id number] [address] [place] [address] Nov, [facility] [address] [facility] [id number] [address] [place] [address] Nov, [facility] [address] [facility] [id number] [address] [place] [address] Nov, [facility] [address] [facility] [id number] [address] [place] [address] October, [facility] [address] [facility] [id number] [address] [place] [address] October, [facility] [address] [place] [id number] [address] [place] [address] October, Pain in thoracic spine 724.1 and Tachycardia 785.0 [facility] [address] [id number] [address] [place] [address] October, [facility] [address] [id number] [address] [place] [address] October, [facility] [address] [facility] [id number] [address] [place] [address] 14 Sep, 2014 [facility] [address] [facility] [id number] [address] [place] [address] Sep, [facility] [address] [id number] [facility] [place] [address] Aug, [facility] [address] [id number] [address] [place] [address], [place] [address] Aug, [facility] [address] [id number] [address] [place] [address], [place] [address] Aug, [facility] [address] [id number] [address] [place] [address], [place] [address] Aug, [facility] [address] [id number] [address] [place] [address], [place] [address] Aug, [facility] [address] [id number] [address] [place] [address], [place] [address] Aug, [facility] [address] [id number] [address] [place] [address], [place] [address] Aug, [facility] [address] [id number] [address] [place] [address], [place] [address] Aug, [facility] [address] [id number] [address] [place] [address], [place] [address] Aug, [facility] [address] [id number] [address] [place] [address], [place] [address] Aug, [facility] [address] [id number] [address] [place] [address], [place] [address] Aug, [facility] [address] [id number] [address] [place] [address], [place] [address] Aug, 2014 [facility] [address] [id number] [address] [place] [address], [place] [address] Jul, [facility] [address] [id number] [address] [place] [address], [place] [address] Jul, [facility] [address] [id number] [address] [place] [address], [place] [address] Jul, [facility] [address] [id number] [address] [place] [address], [place] [address] Jul, [facility] [address] [id number] [address] [place] [address], [place] [address] 23 Jul, 2014 [facility] [address] [id number] [address] [place] [address], [place] [address] 23 Jul, 2014 [facility] [address] [id number] [address] [place] [address], [place] [address] 23 Jul, 2014 [facility] [address] [id number] [address] [place] [address], [place] [address] 23 Jul, 2014 [facility] [address] [id number] [address] [place] [address], [place] [address] 20 Jul, 2014 [facility] [address] [id number] [address] [place] [address], [place] [address] 20 Jul, 2014 [facility] [address] [id number] [address] [place] [address], [place] [address] 19 Jul, 2014 [facility] [address] [id number] [address] [place] [address], [place] [address] 19 Jul, 2014 [facility] [address] [id number] [address] [place] [address], [place] [address] 17 Jul, 2014 [facility] [address] [id number] [address] [place] [address], [place] [address] 17 Jul, 2014 [facility] [address] [id number] [address] [place] [address], [place] [address] 16 Jul, 2014 [facility] [address] [id number] [address] [place] [address], [place] [address] 16 Jul, 2014 [facility] [address] [id number] [address] [place] [address], [place] [address] 16 Jul, 2014 [facility] [address] [id number] [address] [place] [address] 16 Jul, 2014 [facility] [address] [id number] [address] [place] [address] 13 Jul, 2014 [facility] [address] [id number] [address] [place] [address], [place] [address] Jul, [facility] [address] [id number] [address] [place] [address], [place] [address] Jul, [facility] [address] [id number] [address] [place] [address], [place] [address] Jul, 2014 [facility] [address] [id number] [address] [place] [address], [place] [address] Jul, 2014 [facility] [address] [id number] [address] [place] [address], [place] [address] Jul, [facility] [address] [id number] [address] [place] [address], [place] [address] Jul, [facility] [address] [id number] [address] [place] [address], [place] [address] Jul, [facility] [address] [id number] [address] [place] [address], [place] [address] Jul, [facility] [address] [id number] [address] [place] [address], [place] [address] Jul, [facility] [address] [id number] [address] [place] [address], [place] [address] Jul, [facility] [address] [id number] [address] [place] [address], [place] [address] Jul, [facility] [address] [id number] [address] [place] [address], [place] [address] Jun, [facility] [address] [id number] [address] [place] [address], [place] [address] Jun, [facility] [address] [id number] [address] [place] [address], [place] [address] Jun, [facility] [address] [id number] [address] [place] [address], [place] [address] Jun, [facility] [address] [id number] [address] [place] [address], [place] [address] Jun, [facility] [address] [id number] [address] [place] [address], [place] [address] Jun, [facility] [address] [id number] [address] [place] [address], [place] [address] Jun, [facility] [address] [id number] [address] [place] [address], [place] [address] Jun, [facility] [address] [id number] [address] [place] [address], [place] [address] Jun, [facility] [address] [id number] [address] [place] [address], [place] [address] Jun, [facility] [address] [id number] [address] [place] [address], [place] [address] Jun, [facility] [address] [id number] [address] [place] [address], [place] [address] Jun, [facility] [address] [id number] [address] [place] [address], [place] [address] Jun, [facility] [address] [id number] [address] [place] [address], [place] [address] Jun, [facility] [address] [id number] [address] [place] [address], [place] [address] Jun, [facility] [address] [id number] [address] [place] [address], [place] [address] Jun, [facility] [address] [id number] [address] [place] [address], [place] [address] Jun, [facility] [address] [id number] [address] [place] [address], [place] [address] Jun, [facility] [address] [id number] [address] [place] [address], [place] [address] Jun, [facility] [address] [id number] [address] [place] [address], [place] [address] Jun, [facility] [address] [id number] [address] [place] [address], [place] [address] May, [facility] [address] [id number] [address] [place] [address], [place] [address] May, [facility] [address] [id number] [address] [place] [address], [place] [address] May, [facility] [address] [id number] [address] [place] [address], [place] [address] May, [facility] [address] [id number] [address] [place] [address], [place] [address] May, [facility] [address] [id number] [address] [place] [address], [place] [address] May, [facility] [address] [id number] [address] [place] [address], [place] [address] May, [facility] [address] [id number] [address] [place] [address], [place] [address] May, [facility] [address] [id number] [address] [place] [address], [place] [address] May, [facility] [address] [id number] [address] [place] [address], [place] [address] May, [facility] [address] [id number] [address] [place] [address], [place] [address] May, [facility] [address] [id number] [address] [place] [address], [place] [address] 18 May, 2014 [facility] [address] [id number] [address] [place] [address], [place] [address] 18 May, 2014 [facility] [address] [id number] [address] [place] [address], [place] [address] 17 May, 2014 [facility] [address] [id number] [address] [place] [address], [place] [address] 16 May, 2014 [facility] [address] [id number] [address] [place] [address], [place] [address] 16 May, 2014 [facility] [address] [id number] [address] [place] [address], [place] [address] 15 May, 2014 [facility] [address] [id number] [address] [place] [address], [place] [address] 15 May, 2014 [facility] [address] [id number] [address] [place] [address], [place] [address] May, [facility] [address] [id number] [address] [place] [address], [place] [address] May, [facility] [address] [id number] [address] [place] [address], [place] [address] May, [facility] [address] [id number] [address] [place] [address], [place] [address] May, [facility] [address] [id number] [address] [place] [address], [place] [address] May, [facility] [address] [id number] [address] [place] [address], [place] [address] May, [facility] [address] [id number] [address] [place] [address], [place] [address] May, [facility] [address] [id number] [address] [place] [address], [place] [address] May, [facility] [address] [id number] [address] [place] [address], [place] [address] May, [facility] [address] [id number] [address] [place] [address], [place] [address] May, [facility] [address] [id number] [address] [place] [address], [place] [address] May, [facility] [address] [id number] [address] [place] [address], [place] [address] May, [facility] [address] [id number] [address] [place] [address], [place] [address] May, [facility] [address] [id number] [address] [place] [address], [place] [address] May, [facility] [address] [id number] [address] [place] [address], [place] [address] May, [facility] [address] [id number] [address] [place] [address], [place] [address] May, [facility] [address] [id number] [address] [place] [address], [place] [address] Apr, [facility] [address] [id number] [address] [place] [address], [place] [address] Apr, [facility] [address] [id number] [address] [place] [address], [place] [address] Apr, [facility] [address] [id number] [address] [place] [address], [place] [address] Apr, [facility] [address] [id number] [address] [place] [address], [place] [address] Apr, [facility] [address] [id number] [address] [place] [address], [place] [address] Apr, [facility] [address] [id number] [address] [place] [address], [place] [address] Apr, [facility] [address] [id number] [address] [place] [address], [place] [address] Apr, [facility] [address] [id number] [address] [place] [address], [place] [address] Apr, [facility] [address] [id number] [address] [place] [address], [place] [address] Apr, [facility] [address] [id number] [address] [place] [address], [place] [address] Mar, [facility] [address] [id number] [address] [place] [address], [place] [address] Mar, [facility] [address] [id number] [address] [place] [address] [address] Mar, [facility] [address] [id number] [address] [place] [address], [place] [address] 31 Mar, 2013 [facility] [address] [id number] [address] [place] [address], [place] [address] Mar, [facility] [address] [id number] [address] [place] [address], [place] [address] 30 Mar, 2014 [facility] [address] [id number] [address] [place] [address], [place] [address] Mar, [facility] [address] [id number] [address] [place] [address], [place] [address] Mar, [facility] [address] [id number] [address] [place] [address], [place] [address] Mar, [facility] [address] [id number] [address] [place] [address], [place] [address] Mar, [facility] [address] [id number] [address] [place] [address] Mar, [facility] [address] [id number] [address] [place] [address] Mar, [facility] [address] [id number] [address] [place] [address] Mar, [facility] [address] [id number] [address] [place] [address] Mar, 2013 [facility] [address] [id number] [address] [place] [address] Mar, 2013 [facility] [address] [id number] [address] [place] [address] Mar, [facility] [address] [id number] [address] [place] [id number] Mar, [facility] [address] [id number] [address] [place] [id number] Mar, 2013 [facility] [address] [id number] [address] [place] [address], [place] [address] 02 Mar, 2013 [facility] [address] [id number] [address] [place] [address], [place] [address] 02 Mar, 2013 [facility] [address] [id number] [address] [place] [address], [place] [address] 05 Sep, 2013 [facility] [address] [id number] [address] [place] [address], [place] [address] 05 Sep, 2013 [facility] [address] [id number] [address] [place] [address], [place] [address] 04 Sep, 2013 [facility] [address] [id number] [address] [place] [address], [place] [address] 04 Sep, 2013 [facility] [address] [id number] [address] [place] [address], [place] [address] 03 Feb, 2013 [facility] [address] [id number] [address] [place] [address], [place] [address] 03 Feb, 2013 [facility] [address] [id number] [address] [place] [address], [place] [address] 02 Feb, 2013 [facility] [address] [id number] [address] [place] [address], [place] [address] Feb, 2013 [facility] [address] [id number] [address] [place] [address], [place] [address] 02 Feb, 2013 [facility] [address] [id number] [address] [place] [address], [place] [address] Feb, 2013 [facility] [address] [id number] [address] [place] [address], [place] [address] Jan, [facility] [address] [id number] [address] [place] [address], [place] [address] Jan, [facility] [address] [id number] [address] [place] [address], [place] [address] Jan, [facility] [address] [id number] [address] [place] [address], [place] [address] Jan, [facility] [address] [id number] [address] [place] [address] Jan, [facility] [address] [id number] [address] [place] [address], [place] [address] Jan, [facility] [address] [id number] [address] [place] [address], [place] [address] Jan, [facility] [address] [id number] [address] [place] [address], [place] [address] Jan, [facility] [address] [id number] [address] [place] [address], [place] [address] Jan, [facility] [address] [id number] [address] [place] [address], [place] [address] Jan, [facility] [address] [id number] [address] [place] [address], [place] [address] Jan, [facility] [address] [id number] [address] [place] [address], [place] [address] Jan, [facility] [address] [id number] [address] [place] [address], [place] [address] Dec, [facility] [address] [id number] [address] [place] [address], [place] [address] Dec, [facility] [address] [id number] [address] [place] [address], [place] [address] Dec, [facility] [address] [id number] [address] [place] [address], [place] [address] Dec, [facility] [address] [id number] [address] [place] [address], [place] [address] Dec, [facility] [address] [id number] [address] [place] [address], [place] [address] Dec, [facility] [address] [id number] [address] [place] [address], [place] [address] Dec, [facility] [address] [id number] [address] [place] [address], [place] [address] Dec, [facility] [address] [id number] [address] [place] [address] Dec, [facility] [address] [id number] [address] [place] [address], [place] [address] Dec, [facility] [address] [id number] [address] [place], [place] [address], [place] [address] Dec, [facility] [address] [id number] [address] [place] [address], [place] [address] Dec, [facility] [address] [id number] [address] [place] [address], [place] [address] Nov, [facility] [address] [id number] [address] [place] [address], [place] [address] Nov, [facility] [address] [id number] [address] [place] [address], [place] [address] Nov, [facility] [address] [id number] [address] [place] [address], [place] [address] Nov, [facility] [address] [id number] [address] [place] [address], [place] [address] Nov, [facility] [address] [id number] [address] [place] [address], [place] [address] Nov, [facility] [address] [id number] [address] [place] [address], [place] [address] Nov, [facility] [address] [id number] [address] [place] [address], [place] [address] Nov, [facility] [address] [id number] [address] [place] [address], [place] [address] Nov, [facility] [address] [id number] [address] [place] [address], [place] [address] Nov, [facility] [address] [id number] [address] [place] [address], [place] [address] Nov, [facility] [address] [id number] [facility] [place] [address] Nov, [facility] [address] [id number] [address] [place] [address], [place] [address] Nov, [facility] [address] [id number] [address] [place] [address], [place] [address] Nov, [facility] [address] [id number] [address] [place] [address], [place] [address] October, [facility] [address] [id number] [address] [place] [address], [place] [address] October, [facility] [address] [id number] [address] [place] [address], [place] [address] October, [facility] [address] [id number] [address] [place] [address], [place] [address] October, [facility] [address] [id number] [address] [place] [address], [place] [address] October, [facility] [address] [id number] [address] [place] [address], [place] [address] October, [facility] [address] [id number] [address] [place] [address], [place] [address] October, [facility] [address] [id number] [address] [place] [address], [place] [address] October, [facility] [address] [id number] [address] [place] [address], [place] [address] October, [facility] [address] [id number] [address] [place] [address], [place] [address] October, [facility] [address] [id number] [address] [place] [address], [place] [address] October, [facility] [address] [id number] [address] [place] [address], [place] [address] October, [facility] [address] [id number] [address] [place] [address], [place] [address] Sep, [facility] [address] [id number] [facility] [place] [address] Sep, [facility] [address] [id number] [address] [place] [address], [place] [address] Sep, [facility] [address] [id number] [facility] [place] [address] Sep, [facility] [address] [id number] [address] [place] [address], [place] [address] Sep, [facility] [address] [id number] [address] [place] [address], [place] [address] Sep, [facility] [address] [id number] [address] [place] [address], [place] [address] Aug, [facility] [address] [id number] [address] [place] [address], [place] [address] Aug, [facility] [address] [id number] [address] [place] [address], [place] [address] Aug, [facility] [address] [id number] [address] [place] [address], [place] [address] Aug, [facility] [address] [id number] [address] [place] [address], [place] [address] Aug, [facility] [address] [id number] [address] [place] [address], [place] [address] Aug, [facility] [address] [id number] [address] [place] [address], [place] [address] Jul, [facility] [address] [id number] [address] [place] [address], [place] [address] Jul, [facility] [address] [id number] [address] [place] [address], [place] [address] Jul, [facility] [address] [id number] [address] [place] [address], [place] [address] Jul, [facility] [address] [id number] [address] [place] [address], [place] [address] 13 Jul, 2013 [facility] [address] [id number] [address] [place] [address], [place] [address] Jul, [facility] [address] [id number] [address] [place] [address], [place] [address] Jul, [facility] [address] [id number] [address] [place] [address], [place] [address] Jul, [facility] [address] [id number] [address] [place] [address], [place] [address] Jul, [facility] [address] [id number] [address] [place] [address], [place] [address] Jul, [facility] [address] [id number] [address] [place] [address], [place] [address] Jun, [facility] [address] [id number] [address] [place] [address], [place] [address] Jun, [facility] [address] [id number] [address] [place] [address], [place] [address] Jun, [facility] [address] [id number] [address] [place] [address], [place] [address] Jun, [facility] [address] [id number] [address] [place] [address], [place] [address] Jun, [facility] [address] [id number] [address] [place] [address], [place] [address] Jun, [facility] [address] [id number] [address] [place] [address], [place] [address] Jun, [facility] [address] [id number] [address] [place] [address], [place] [address] Jun, [facility] [address] [id number] [address] [place] [address], [place] [address] May, [facility] [address] [id number] [address] [place] [address], [place] [address] May, [facility] [address] [id number] [address] [place] [address], [place] [address] May, [facility] [address] [id number] [address] [place] [address], [place] [address] May, [facility] [address] [id number] [address] [place] [address], [place] [address] May, [facility] [address] [id number] [address] [place] [address], [place] [address] May, [facility] [address] [id number] [address] [place] [address], [place] [address] May, [facility] [address] [id number] [address] [place] [address], [place] [address] May, [facility] [address] [id number] [address] [place] [address], [place] [address] Apr, [facility] [address] [id number] [address] [place] [address] Apr, [facility] [address] [id number] [address] [place] [address], [place] [address] Apr, [facility] [address] [id number] [address] [place] [address] Apr, [facility] [address] [id number] [address] [place] [address] Apr, [facility] [address] [id number] [address] [place] [address] Apr, [facility] [address] [id number] [address] [place] [address], [place] [address] Mar, [facility] [address] [id number] [address] [place] [address] Mar, [facility] [address] [id number] [address] [place] [address], [place] [address] Mar, [facility] [address] [id number] [address] [place] [address], [place] [address] Mar, [facility] [address] [id number] [address] [place] [address], [place] [address] Mar, [facility] [address] [id number] [address] [place] [address], [place] [address] Mar, [facility] [address] [id number] [address] [place] [address], [place] [address] Mar, [facility] [address] [id number] [address] [place] [address], [place] [address] 30 Feb, 2012 [facility] [address] [id number] [address] [place] [address], [place] [address] 30 Feb, 2013 [facility] [address] [id number] [address] [place] [address], [place] [address] 27 Feb, 2013 [facility] [address] [id number] [address] [place] [address], [place] [address] Feb, 2012 [facility] [address] [id number] [address] [place] [address], [place] [address] Feb, [facility] [address] [id number] [address] [place] [address], [place] [address] Feb, [facility] [address] [id number] [address] [place] [address], [place] [address] Jan, [facility] [address] [id number] [address] [place] [address], [place] [address] Jan, [facility] [address] [id number] [address] [place] [address], [place] [address] Jan, [facility] [address] [id number] [address] [place] [address], [place] [address] Jan, [facility] [address] [id number] [address] [place] [address], [place] [address] Jan, [facility] [address] [id number] [address] [place] [address], [place] [address] Jan, [facility] [address] [id number] [address] [place] [address], [place] [address] Jan, [facility] [address] [id number] [address] [place] [address], [place] [address] Jan, [facility] [address] [id number] [address] [place] [address], [place] [address] Jan, [facility] [address] [id number] [address] [place] [address], [place] [address] Dec, [facility] [address] [id number] [address] [place] [address], [place] [address] Dec, [facility] [address] [id number] [address] [place] [address], [place] [address] Dec, [facility] [address] [id number] [address] [place] [address], [place] [address] Dec, [facility] [address] [id number] [address] [place] [address], [place] [address] Dec, [facility] [address] [id number] [address] [place] [address], [place] [address] Dec, [facility] [address] [id number] [address] [place] [address], [place] [address] Dec, [facility] [address] [id number] [address] [place] [address], [place] [address] Dec, [facility] [address] [id number] [address] [place] [address], [place] [address] Dec, [facility] [address] [id number] [address] [place] [address], [place] [address] Dec, [facility] [address] [id number] [address] [place] [address], [place] [address] Dec, [facility] [address] [id number] [address] [place] [address], [place] [address] Dec, [facility] [address] [id number] [address] [place] [address], [place] [address] Dec, [facility] [address] [id number] [address] [place] [address], [place] [address] Nov, [facility] [address] [id number] [address] [place] [address], [place] [address] Nov, [facility] [address] [id number] [address] [place] [address], [place] [address] Nov, [facility] [address] [id number] [address] [place] [address], [place] [address] Nov, [facility] [address] [id number] [address] [place] [address], [place] [address] October, [facility] [address] [id number] [address] [place] [address], [place] [address] October, [facility] [address] [id number] [address] [place] [address], [place] [address] October, [facility] [address] [id number] [address] [place] [address], [place] [address] October, [facility] [address] [id number] [address] [place] [address], [place] [address] October, [facility] [address] [id number] [address] [place] [address], [place] [address] October, [facility] [address] [id number] [address] [place] [address], [place] [address] Sep, [facility] [address] [id number] [address] [place] [address], [place] [address] Sep, [facility] [address] [id number] [address] [place] [address], [place] [address] Sep, [facility] [address] [id number] [address] [place] [address], [place] [address] Sep, [facility] [address] [id number] [address] [place] [address], [place] [address] Sep, [facility] [address] [id number] [facility] [place] [address] 16 Sep, 2012 [facility] [address] [id number] [address] [place] [address], [place] [address] 12 Sep, 2012 [facility] [address] [id number] [address] [place] [address], [place] [address] Sep, [facility] [address] [id number] [address] [place] [address], [place] [address] Sep, [facility] [address] [id number] [address] [place] [address], [place] [address] Sep, [facility] [address] [id number] [address] [place] [address], [place] [address] Sep, [facility] [address] [id number] [address] [place] [address], [place] [address] Aug, [facility] [address] [id number] [address] [place] [address], [place] [address] 25 Aug, 2012 [facility] [address] [id number] [address] [place] [address], [place] [address] 25 Aug, 2012 [facility] [address] [id number] [address] [place] [address], [place] [address] 21 Aug, 2012 [facility] [address] [id number] [address] [place] [address], [place] [address] 19 Aug, 2012 [facility] [address] [id number] [address] [place] [address], [place] [address] 18 Aug, 2012 [facility] [address] [id number] [address] [place] [address], [place] [address] 17 Aug, 2012 [facility] [address] [id number] [address] [place] [address], [place] [address] 15 Aug, 2012 [facility] [address] [id number] [address] [place] [address], [place] [address] 15 Aug, 2012 [facility] [address] [id number] [address] [place] [address], [place] [address] Aug, [facility] [address] [id number] [address] [place] [address], [place] [address] Aug, [facility] [address] [id number] [address] [place] [address], [place] [address] Aug, [facility] [address] [id number] [address] [place] [address], [place] [address] Jul, [facility] [address] [id number] [address] [place] [address], [place] [address] Jul, [facility] [address] [id number] [address] [place] [address], [place] [address] Jul, [facility] [address] [id number] [address] [place] [address], [place] [address] Jul, [facility] [address] [id number] [address] [place] [address], [place] [address] Jul, [facility] [address] [id number] [address] [place] [address], [place] [address] Jul, [facility] [address] [id number] [address] [place] [address], [place] [address] Jul, [facility] [address] [id number] [address] [place] [address], [place] [address] Jul, [facility] [address] [id number] [address] [place] [address], [place] [address] Jul, [facility] [address] [id number] [address] [place] [address], [place] [address] Jul, [facility] [address] [id number] [address] [place] [address], [place] [address] May, [facility] [address] [id number] [place] [id number] May, [facility] [address] [id number] [address] [place] [address], [place] [address] May, [facility] [address] [id number] [address] [place] [address] May, [facility] [address] [facility] [id number] [address] [place] [address] May, [facility] [address] [facility] [id number] [address] [place] [address] Apr, [facility] [place] [address] [id number] [place] [id number] Apr, [facility] [address] [facility] [id number] [address] [place] [address] Apr, [facility] [address] [facility] [id number] [address] [place] [address] Mar, [facility] [place] [address] [id number] [place] [id number] Mar, [facility] [address] [facility] [id number] [address] [place] [address] Mar, [facility] [place] [address] [id number] [place] [id number] Feb, [facility] [address] [facility] [id number] [address] [place] [address] Feb, [facility] [address] [facility] [id number] [address] [place] [phone] Feb, [facility] [place] [address] [id number] [place] [id number] Feb, [facility] [place] [address] [id number] [place] [id number] Feb, [facility] [place] [address] [id number] [place] [id number] Jan, [facility] [address] [id number] [address] [place] [address], [place] [address] Jan, [facility] [place] [address] [id number] [place] [id number] Jan, [facility] [place] [address] [id number] [place] [id number] Jan, [facility] [place] [address] [id number] [place] [id number] Jan, [facility] [address] [facility] [id number] [address] [place] [address], [place] [address] Jan, [facility] [address] [facility] [id number] [address] [place] [address], [place] [id number] Jan, [facility] [address] [facility] [id number] [address] [place] [address], [place] [address] Aug, [facility] [address] [id number] [place] [id number] Aug, [facility] [address] [facility] [id number] [address] [place] [address], [place] [id number] Jul, [facility] [address] [facility] [id number] [address] [place] [address], [place] [address] Jul, [facility] [address] [facility] [id number] [address] [place] [address], [place] [address] Jul, [facility] [address] [id number] [place] [id number] Jul, [facility] [address] [facility] [id number] [address] [place] [address], [place] [address] Jul, [facility] [address] [id number] [place] [id number] Jul, [facility] [address] [facility] [id number] [address] [place] [address], [place] [address] Jul, [facility] [address] [id number] [place] [id number] Jul, [facility] [address] [id number] [place] [id number] Jul, [facility] [address] [id number] [place] [id number] Jul, [facility] [address] [facility] [id number] [address] [place] [address], [place] [address] May, [facility] [address] [id number] [address] [place] [phone] May, [facility] [address] [id number] [address] [place] [id number] May, [facility] [address] [id number] [address] [place] [phone] Apr, [facility] [address] [id number] [address] [place] [phone] Jan, [facility] [address] [id number] [address] [place] [id number] Jan, [facility] [address] [id number] [address] [place] [phone] Dec, [facility] [address] [id number] [address] [place] [phone] Dec, [facility] [address] [id number] [address] [place] [phone] May, [facility] [address] [id number] [address] [place] [phone] Mar, [facility] [address] [id number] [address] [place] [id number] Mar, [facility] [address] [id number] [address] [place] [phone] Jan, IMMUNIZATIONS No Known Immunizations SOCIAL HISTORY [...]
--- OUTSIDE RECORDS SUMMARY | 2020-01-28 12:44 | XMS REPORT ---
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 Active 280070478 Problem History of venous thromboembolism V12.51 Active 768210191 Problem Cellulitis of unspecified part of limb L03.119 Active 548872260 Problem Gastroesophageal reflux disease without esophagitis K21.9 Active 516493932 Problem History of pulmonary embolism Z86.711 Active 203125802 Problem Pseudotumor cerebri G93.2 Active 05200579 Problem History of DVT (deep vein thrombosis) Z86.718 Active 568489946 ALLERGIES No Information ENCOUNTERS Encounter Location Date Diagnosis [place] [id number] [facility] [id number] [address] [place] [address] Apr, assisted (current) use of 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 Z79.01 [facility] [address] [facility] [id number] [address] [place] [address] Apr, assisted 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.01 [facility] [address] [facility] [id number] [address] [place] [address] Apr, Cellulitis of unspecified pa rt of limb L03.119 ; Allergic contact dermatitis due to adhesives L23.1 and Chronic pain syndrome G89.4 [facility] [address] [facility] [id number] [address] [place] [address] Apr, [place] [address] [place] [id number] [address] [place] [address] Apr, 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.01 ; Cellulitis of unspecified part of limb L03.119 ; Chronic pain syndrome G89.4 and Anxiety F41.9 [facility] [address] [place] [id number] [address] [place] [address] 16 Apr, 2015 [facility] [address] [place] [id number] [place] [address] Apr, [place] [address] [place] [id number] [place] [address] Mar, [place] [address] [address] Mar, [place] [address] [address] Mar, Sore throat J02.9 ; Gastroes ophageal reflux disease without esophagitis K21.9 ; Pseudotumor cerebri G93.2 ; Chronic pain syndrome G89.4 ; Choriocarcinoma C58 ; History of pulmonary embolism Z86.711 ; History of DVT (deep vein thrombosis) Z86.718 ; Anxiety F41.9 and Tachycardia R00.0 [place] [address] [address] Feb, Anxiety 300.00 and Chronic p ain 338.29 [place] [address] [place] [id number] [address] [place] [address] Feb, [place] [address] [place] [id number] [address] [place] [address] Feb, [place] [address] [address] Jan, 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 therapy V58.61 and Dysuria 788.1 [place] [address] [place] [id number] [place] [address] Jan, Dysuria 788.1 [facility] [address] [place] [id number] [address] [place] [address] Jan, Anxiety 300.00 and Chronic p ain 338.29 [facility] [address] [place] [id number] [place] [address] Jan, [facility] [address] [phone] Jan, [facility] [address] [address] Jan, [place] [address] [address] Dec, Weakness 780.79 [place] [address] [address] Dec, assisted 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 therapy V58.61 [place] [address] [address] Dec, Palpitations 785.1 ; Tremor 781.0 ; Weakness 780.79 ; assisted current use of anticoagulant therapy V58.61 and Yeast vaginitis 112.1 [place] [address] [place] [id number] [address] [place] [address] Dec, [place] [address] [address] Dec, Cervicalgia 723.1 ; Tachycar yoseph 785.0 ; Pseudotumor cerebri 348.2 and History of venous thromboembolism V12.51 [place] [address] [address] Nov, [place] [address] [address] Nov, [place] [address] [address] Nov, Tachycardia 785.0 ; Pseudotu mor cerebri 348.2 ; Anxiety 300.00 and History of venous thromboembolism V12.51 [facility] [address] [id number] [address] [place] [address] Nov, [facility] [address] [id number] [address] [place] [address] 18 Nov, 2014 [facility] [address] [id number] [address] [place] [address] Nov, [facility] [address] [id number] [address] [place] [address] Nov, [facility] [address] [facility] [id number] [address] [place] [address] Nov, [facility] [address] [facility] [id number] [address] [place] [address] Nov, [facility] [address] [facility] [id number] [address] [place] [address] Nov, [facility] [address] [facility] [id number] [address] [place] [address] October, [facility] [address] [facility] [id number] [address] [place] [address] October, [facility] [address] [place] [id number] [address] [place] [address] October, Pain in thoracic spine 724.1 and Tachycardia 785.0 [facility] [address] [id number] [address] [place] [address] October, [facility] [address] [id number] [address] [place] [address] October, [facility] [address] [facility] [id number] [address] [place] [address] 14 Sep, 2014 [facility] [address] [facility] [id number] [address] [place] [phone] Sep, [facility] [address] [id number] [facility] [place] [address] Aug, [facility] [address] [id number] [address] [place] [address], [place] [address] Aug, [facility] [address] [id number] [address] [place] [address], [place] [address] Aug, [facility] [address] [id number] [address] [place] [address], [place] [address] Aug, [facility] [address] [id number] [address] [place] [address], [place] [address] Aug, [facility] [address] [id number] [address] [place] [address], [place] [address] Aug, [facility] [address] [id number] [address] [place] [address], [place] [address] Aug, [facility] [address] [id number] [address] [place] [address], [place] [address] Aug, [facility] [address] [id number] [address] [place] [address], [place] [address] Aug, [facility] [address] [id number] [address] [place] [address], [place] [address] Aug, [facility] [address] [id number] [address] [place] [address], [place] [address] Aug, [facility] [address] [id number] [address] [place] [address], [place] [address] Aug, 2014 [facility] [address] [id number] [address] [place] [address], [place] [address] Jul, [facility] [address] [id number] [address] [place] [address], [place] [address] Jul, [facility] [address] [id number] [address] [place] [address], [place] [address] Jul, [facility] [address] [id number] [address] [place] [address], [place] [address] Jul, [facility] [address] [id number] [address] [place] [address], [place] [address] 23 Jul, 2014 [facility] [address] [id number] [address] [place] [address], [place] [address] 23 Jul, 2014 [facility] [address] [id number] [address] [place] [address], [place] [address] 23 Jul, 2014 [facility] [address] [id number] [address] [place] [address], [place] [address] 23 Jul, 2014 [facility] [address] [id number] [address] [place] [address], [place] [address] 20 Jul, 2014 [facility] [address] [id number] [address] [place] [address], [place] [address] 20 Jul, 2014 [facility] [address] [id number] [address] [place] [address], [place] [address] 19 Jul, 2014 [facility] [address] [id number] [address] [place] [address], [place] [address] 19 Jul, 2014 [facility] [address] [id number] [address] [place] [address], [place] [address] 17 Jul, 2014 [facility] [address] [id number] [address] [place] [address], [place] [address] 17 Jul, 2014 [facility] [address] [id number] [address] [place] [address], [place] [address] 16 Jul, 2014 [facility] [address] [id number] [address] [place] [address], [place] [address] 16 Jul, 2014 [facility] [address] [id number] [address] [place] [address], [place] [address] 16 Jul, 2014 [facility] [address] [id number] [address] [place] [address] 16 Jul, 2014 [facility] [address] [id number] [address] [place] [address] 13 Jul, 2014 [facility] [address] [id number] [address] [place] [address], [place] [address] Jul, [facility] [address] [id number] [address] [place] [address], [place] [address] Jul, [facility] [address] [id number] [address] [place] [address], [place] [address] Jul, 2014 [facility] [address] [id number] [address] [place] [address], [place] [address] Jul, 2014 [facility] [address] [id number] [address] [place] [address], [place] [address] Jul, [facility] [address] [id number] [address] [place] [address], [place] [address] Jul, [facility] [address] [id number] [address] [place] [address], [place] [address] Jul, [facility] [address] [id number] [address] [place] [address], [place] [address] Jul, [facility] [address] [id number] [address] [place] [address], [place] [address] Jul, [facility] [address] [id number] [address] [place] [address], [place] [address] Jul, [facility] [address] [id number] [address] [place] [address], [place] [address] Jul, [facility] [address] [id number] [address] [place] [address], [place] [address] Jun, [facility] [address] [id number] [address] [place] [address], [place] [address] Jun, [facility] [address] [id number] [address] [place] [address], [place] [address] Jun, [facility] [address] [id number] [address] [place] [address], [place] [address] Jun, [facility] [address] [id number] [address] [place] [address], [place] [address] Jun, [facility] [address] [id number] [address] [place] [address], [place] [address] Jun, [facility] [address] [id number] [address] [place] [address], [place] [address] Jun, [facility] [address] [id number] [address] [place] [address], [place] [address] Jun, [facility] [address] [id number] [address] [place] [address], [place] [address] Jun, [facility] [address] [id number] [address] [place] [address], [place] [address] Jun, [facility] [address] [id number] [address] [place] [address], [place] [address] Jun, [facility] [address] [id number] [address] [place] [address], [place] [address] Jun, [facility] [address] [id number] [address] [place] [address], [place] [address] Jun, [facility] [address] [id number] [address] [place] [address], [place] [address] Jun, [facility] [address] [id number] [address] [place] [address], [place] [address] Jun, [facility] [address] [id number] [address] [place] [address], [place] [address] Jun, [facility] [address] [id number] [address] [place] [address], [place] [address] Jun, [facility] [address] [id number] [address] [place] [address], [place] [address] Jun, [facility] [address] [id number] [address] [place] [address], [place] [address] Jun, [facility] [address] [id number] [address] [place] [address], [place] [address] Jun, [facility] [address] [id number] [address] [place] [address], [place] [address] May, [facility] [address] [id number] [address] [place] [address], [place] [address] May, [facility] [address] [id number] [address] [place] [address], [place] [address] May, [facility] [address] [id number] [address] [place] [address], [place] [address] May, [facility] [address] [id number] [address] [place] [address], [place] [address] May, [facility] [address] [id number] [address] [place] [address], [place] [address] May, [facility] [address] [id number] [address] [place] [address], [place] [address] May, [facility] [address] [id number] [address] [place] [address], [place] [address] May, [facility] [address] [id number] [address] [place] [address], [place] [address] May, [facility] [address] [id number] [address] [place] [address], [place] [address] May, [facility] [address] [id number] [address] [place] [address], [place] [address] May, [facility] [address] [id number] [address] [place] [address], [place] [address] 18 May, 2014 [facility] [address] [id number] [address] [place] [address], [place] [address] 18 May, 2014 [facility] [address] [id number] [address] [place] [address], [place] [address] 17 May, 2014 [facility] [address] [id number] [address] [place] [address], [place] [address] 16 May, 2014 [facility] [address] [id number] [address] [place] [address], [place] [address] 16 May, 2014 [facility] [address] [id number] [address] [place] [address], [place] [address] 15 May, 2014 [facility] [address] [id number] [address] [place] [address], [place] [address] 15 May, 2014 [facility] [address] [id number] [address] [place] [address], [place] [address] May, [facility] [address] [id number] [address] [place] [address], [place] [address] May, [facility] [address] [id number] [address] [place] [address], [place] [address] May, [facility] [address] [id number] [address] [place] [address], [place] [address] May, [facility] [address] [id number] [address] [place] [address], [place] [address] May, [facility] [address] [id number] [address] [place] [address], [place] [address] May, [facility] [address] [id number] [address] [place] [address], [place] [address] May, [facility] [address] [id number] [address] [place] [address], [place] [address] May, [facility] [address] [id number] [address] [place] [address], [place] [address] May, [facility] [address] [id number] [address] [place] [address], [place] [address] May, [facility] [address] [id number] [address] [place] [address], [place] [address] May, [facility] [address] [id number] [address] [place] [address], [place] [address] May, [facility] [address] [id number] [address] [place] [address], [place] [address] May, [facility] [address] [id number] [address] [place] [address], [place] [address] May, [facility] [address] [id number] [address] [place] [address], [place] [address] May, [facility] [address] [id number] [address] [place] [address], [place] [address] May, [facility] [address] [id number] [address] [place] [address], [place] [address] Apr, [facility] [address] [id number] [address] [place] [address], [place] [address] Apr, [facility] [address] [id number] [address] [place] [address], [place] [address] Apr, [facility] [address] [id number] [address] [place] [address], [place] [address] Apr, [facility] [address] [id number] [address] [place] [address], [place] [address] Apr, [facility] [address] [id number] [address] [place] [address], [place] [address] Apr, [facility] [address] [id number] [address] [place] [address], [place] [address] Apr, [facility] [address] [id number] [address] [place] [address], [place] [address] Apr, [facility] [address] [id number] [address] [place] [address], [place] [address] Apr, [facility] [address] [id number] [address] [place] [address], [place] [address] Apr, [facility] [address] [id number] [address] [place] [address], [place] [address] Mar, [facility] [address] [id number] [address] [place] [address], [place] [address] Mar, [facility] [address] [id number] [address] [place] [address] [address] Mar, [facility] [address] [id number] [address] [place] [address], [place] [address] 31 Mar, 2013 [facility] [address] [id number] [address] [place] [address], [place] [address] Mar, [facility] [address] [id number] [address] [place] [address], [place] [address] 30 Mar, 2014 [facility] [address] [id number] [address] [place] [address], [place] [address] Mar, [facility] [address] [id number] [address] [place] [address], [place] [address] Mar, [facility] [address] [id number] [address] [place] [address], [place] [address] Mar, [facility] [address] [id number] [address] [place] [address], [place] [address] Mar, [facility] [address] [id number] [address] [place] [address] Mar, [facility] [address] [id number] [address] [place] [address] Mar, [facility] [address] [id number] [address] [place] [id number] Mar, [facility] [address] [id number] [address] [place] [id number] Mar, 2013 [facility] [address] [id number] [address] [place] [id number] Mar, 2013 [facility] [address] [id number] [address] [place] [id number] Mar, [facility] [address] [id number] [address] [place] [id number] Mar, [facility] [address] [id number] [address] [place] [id number] Mar, 2013 [facility] [address] [id number] [address] [place] [address], [place] [address] 02 Mar, 2013 [facility] [address] [id number] [address] [place] [address], [place] [address] 02 Mar, 2013 [facility] [address] [id number] [address] [place] [address], [place] [address] 05 Sep, 2013 [facility] [address] [id number] [address] [place] [address], [place] [address] 05 Sep, 2013 [facility] [address] [id number] [address] [place] [address], [place] [address] 04 Sep, 2013 [facility] [address] [id number] [address] [place] [address], [place] [address] 04 Sep, 2013 [facility] [address] [id number] [address] [place] [address], [place] [address] 03 Feb, 2013 [facility] [address] [id number] [address] [place] [address], [place] [address] 03 Feb, 2013 [facility] [address] [id number] [address] [place] [address], [place] [address] 02 Feb, 2013 [facility] [address] [id number] [address] [place] [address], [place] [address] Feb, 2013 [facility] [address] [id number] [address] [place] [address], [place] [address] 02 Feb, 2013 [facility] [address] [id number] [address] [place] [address], [place] [address] Feb, 2013 [facility] [address] [id number] [address] [place] [address], [place] [address] Jan, [facility] [address] [id number] [address] [place] [address], [place] [address] Jan, [facility] [address] [id number] [address] [place] [address], [place] [address] Jan, [facility] [address] [id number] [address] [place] [address], [place] [address] Jan, [facility] [address] [id number] [facility] [place] [address] Jan, [facility] [address] [id number] [address] [place] [address], [place] [address] Jan, [facility] [address] [id number] [address] [place] [address], [place] [address] Jan, [facility] [address] [id number] [address] [place] [address], [place] [address] Jan, [facility] [address] [id number] [address] [place] [address], [place] [address] Jan, [facility] [address] [id number] [address] [place] [address], [place] [address] Jan, [facility] [address] [id number] [address] [place] [address], [place] [address] Jan, [facility] [address] [id number] [address] [place] [address], [place] [address] Jan, [facility] [address] [id number] [address] [place] [address], [place] [address] Dec, [facility] [address] [id number] [address] [place] [address], [place] [address] Dec, [facility] [address] [id number] [address] [place] [address], [place] [address] Dec, [facility] [address] [id number] [address] [place] [address], [place] [address] Dec, [facility] [address] [id number] [address] [place] [address], [place] [address] Dec, [facility] [address] [id number] [address] [place] [address], [place] [address] Dec, [facility] [address] [id number] [address] [place] [address], [place] [address] Dec, [facility] [address] [id number] [address] [place] [address], [place] [address] Dec, [facility] [address] [id number] [facility] [place] [address] Dec, [facility] [address] [id number] [address] [place] [address], [place] [address] Dec, [facility] [address] [id number] [address] [place] [address], [place] [address] Dec, [facility] [address] [id number] [address] [place] [address], [place] [address] Dec, [facility] [address] [id number] [address] [place] [address], [place] [address] Nov, [facility] [address] [id number] [address] [place] [address], [place] [address] Nov, [facility] [address] [id number] [address] [place] [address], [place] [address] Nov, [facility] [address] [id number] [address] [place] [address], [place] [address] Nov, [facility] [address] [id number] [address] [place] [address], [place] [address] Nov, [facility] [address] [id number] [address] [place] [address], [place] [address] Nov, [facility] [address] [id number] [address] [place] [address], [place] [address] Nov, [facility] [address] [id number] [address] [place] [address], [place] [address] Nov, [facility] [address] [id number] [address] [place] [address], [place] [address] Nov, [facility] [address] [id number] [address] [place] [address], [place] [address] Nov, [facility] [address] [id number] [address] [place] [address], [place] [address] Nov, [facility] [address] [id number] [facility] [place] [address] Nov, [facility] [address] [id number] [address] [place] [address], [place] [address] Nov, [facility] [address] [id number] [address] [place] [address], [place] [address] Nov, [facility] [address] [id number] [address] [place] [address], [place] [address] October, [facility] [address] [id number] [address] [place] [address], [place] [address] October, [facility] [address] [id number] [address] [place] [address], [place] [address] October, [facility] [address] [id number] [address] [place] [address], [place] [address] October, [facility] [address] [id number] [address] [place] [address], [place] [address] October, [facility] [address] [id number] [address] [place] [address], [place] [address] October, [facility] [address] [id number] [address] [place] [address], [place] [address] October, [facility] [address] [id number] [address] [place] [address], [place] [address] October, [facility] [address] [id number] [address] [place] [address], [place] [address] October, [facility] [address] [id number] [address] [place] [address], [place] [address] October, [facility] [address] [id number] [address] [place] [address], [place] [address] October, [facility] [address] [id number] [address] [place] [address], [place] [address] October, [facility] [address] [id number] [address] [place] [address], [place] [address] Sep, [facility] [address] [id number] [facility] [place] [address] Sep, [facility] [address] [id number] [address] [place] [address], [place] [address] Sep, [facility] [address] [id number] [facility] [place] [address] Sep, [facility] [address] [id number] [address] [place] [address], [place] [address] Sep, [facility] [address] [id number] [address] [place] [address], [place] [address] Sep, [facility] [address] [id number] [address] [place] [address], [place] [address] Aug, [facility] [address] [id number] [address] [place] [address], [place] [address] Aug, [facility] [address] [id number] [address] [place] [address], [place] [address] Aug, [facility] [address] [id number] [address] [place] [address], [place] [address] Aug, [facility] [address] [id number] [address] [place] [address], [place] [address] Aug, [facility] [address] [id number] [address] [place] [address], [place] [address] Aug, [facility] [address] [id number] [address] [place] [address], [place] [address] Jul, [facility] [address] [id number] [address] [place] [address], [place] [address] Jul, [facility] [address] [id number] [address] [place] [address], [place] [address] Jul, [facility] [address] [id number] [address] [place] [address], [place] [address] Jul, [facility] [address] [id number] [address] [place] [address], [place] [address] 13 Jul, 2013 [facility] [address] [id number] [address] [place] [address], [place] [address] Jul, [facility] [address] [id number] [address] [place] [address], [place] [address] Jul, [facility] [address] [id number] [address] [place] [address], [place] [address] Jul, [facility] [address] [id number] [address] [place] [address], [place] [address] Jul, [facility] [address] [id number] [address] [place] [address], [place] [address] Jul, [facility] [address] [id number] [address] [place] [address], [place] [address] Jun, [facility] [address] [id number] [address] [place] [address], [place] [address] Jun, [facility] [address] [id number] [address] [place] [address], [place] [address] Jun, [facility] [address] [id number] [address] [place] [address], [place] [address] Jun, [facility] [address] [id number] [address] [place] [address], [place] [address] Jun, [facility] [address] [id number] [address] [place] [address], [place] [address] Jun, [facility] [address] [id number] [address] [place] [address], [place] [address] Jun, [facility] [address] [id number] [address] [place] [address], [place] [address] Jun, [facility] [address] [id number] [address] [place] [address], [place] [address] May, [facility] [address] [id number] [address] [place] [address], [place] [address] May, [facility] [address] [id number] [address] [place] [address], [place] [address] May, [facility] [address] [id number] [address] [place] [address], [place] [address] May, [facility] [address] [id number] [address] [place] [address], [place] [address] May, [facility] [address] [id number] [address] [place] [address], [place] [address] May, [facility] [address] [id number] [address] [place] [address], [place] [address] May, [facility] [address] [id number] [address] [place] [address], [place] [address] May, [facility] [address] [id number] [address] [place] [address], [place] [address] Apr, [facility] [address] [id number] [address] [place] [address] Apr, [facility] [address] [id number] [address] [place] [address], [place] [address] Apr, [facility] [address] [id number] [address] [place] [address] Apr, [facility] [address] [id number] [address] [place] [address] Apr, [facility] [address] [id number] [address] [place] [address] Apr, [facility] [address] [id number] [address] [place] [address], [place] [address] Mar, [facility] [address] [id number] [address] [place] [address] Mar, [facility] [address] [id number] [address] [place] [address], [place] [address] Mar, [facility] [address] [id number] [address] [place] [address], [place] [address] Mar, [facility] [address] [id number] [address] [place] [address], [place] [address] Mar, [facility] [address] [id number] [address] [place] [address], [place] [address] Mar, [facility] [address] [id number] [address] [place] [address], [place] [address] Mar, [facility] [address] [id number] [address] [place] [address], [place] [address] 30 Feb, 2012 [facility] [address] [id number] [address] [place] [address], [place] [address] 30 Feb, 2013 [facility] [address] [id number] [address] [place] [address], [place] [address] 27 Feb, 2013 [facility] [address] [id number] [address] [place] [address], [place] [address] Feb, 2012 [facility] [address] [id number] [address] [place] [address], [place] [address] Feb, [facility] [address] [id number] [address] [place] [address], [place] [address] Feb, [facility] [address] [id number] [address] [place] [address], [place] [address] Jan, [facility] [address] [id number] [address] [place] [address], [place] [address] Jan, [facility] [address] [id number] [address] [place] [address], [place] [address] Jan, [facility] [address] [id number] [address] [place] [address], [place] [address] Jan, [facility] [address] [id number] [address] [place] [address], [place] [address] Jan, [facility] [address] [id number] [address] [place] [address], [place] [address] Jan, [facility] [address] [id number] [address] [place] [address], [place] [address] Jan, [facility] [address] [id number] [address] [place] [address], [place] [address] Jan, [facility] [address] [id number] [address] [place] [address], [place] [address] Jan, [facility] [address] [id number] [address] [place] [address], [place] [address] Dec, [facility] [address] [id number] [address] [place] [address], [place] [address] Dec, [facility] [address] [id number] [address] [place] [address], [place] [address] Dec, [facility] [address] [id number] [address] [place] [address], [place] [address] Dec, [facility] [address] [id number] [address] [place] [address], [place] [address] Dec, [facility] [address] [id number] [address] [place] [address], [place] [address] Dec, [facility] [address] [id number] [address] [place] [address], [place] [address] Dec, [facility] [address] [id number] [address] [place] [address], [place] [address] Dec, [facility] [address] [id number] [address] [place] [address], [place] [address] Dec, [facility] [address] [id number] [address] [place] [address], [place] [address] Dec, [facility] [address] [id number] [address] [place] [address], [place] [address] Dec, [facility] [address] [id number] [address] [place] [address], [place] [address] Dec, [facility] [address] [id number] [address] [place] [address], [place] [address] Dec, [facility] [address] [id number] [address] [place] [address], [place] [address] Nov, [facility] [address] [id number] [address] [place] [address], [place] [address] Nov, [facility] [address] [id number] [address] [place] [address], [place] [address] Nov, [facility] [address] [id number] [address] [place] [address], [place] [address] Nov, [facility] [address] [id number] [address] [place] [address], [place] [address] October, [facility] [address] [id number] [address] [place] [address], [place] [address] October, [facility] [address] [id number] [address] [place] [address], [place] [address] October, [facility] [address] [id number] [address] [place] [address], [place] [address] October, [facility] [address] [id number] [address] [place] [address], [place] [address] October, [facility] [address] [id number] [address] [place] [address], [place] [address] October, [facility] [address] [id number] [address] [place] [address], [place] [address] Sep, [facility] [address] [id number] [address] [place] [address], [place] [address] Sep, [facility] [address] [id number] [address] [place] [address], [place] [address] Sep, [facility] [address] [id number] [address] [place] [address], [place] [address] Sep, [facility] [address] [id number] [address] [place] [address], [place] [address] Sep, [facility] [address] [id number] [facility] [place] [address] 16 Sep, 2012 [facility] [address] [id number] [address] [place] [address], [place] [address] 12 Sep, 2012 [facility] [address] [id number] [address] [place] [address], [place] [address] Sep, [facility] [address] [id number] [address] [place] [address], [place] [address] Sep, [facility] [address] [id number] [address] [place] [address], [place] [address] Sep, [facility] [address] [id number] [address] [place] [address], [place] [address] Sep, [facility] [address] [id number] [address] [place] [address], [place] [address] Aug, [facility] [address] [id number] [address] [place] [address], [place] [address] 25 Aug, 2012 [facility] [address] [id number] [address] [place] [address], [place] [address] 25 Aug, 2012 [facility] [address] [id number] [address] [place] [address], [place] [address] 21 Aug, 2012 [facility] [address] [id number] [address] [place] [address], [place] [address] 19 Aug, 2012 [facility] [address] [id number] [address] [place] [address], [place] [address] 18 Aug, 2012 [facility] [address] [id number] [address] [place] [address], [place] [address] 17 Aug, 2012 [facility] [address] [id number] [address] [place] [address], [place] [address] 15 Aug, 2012 [facility] [address] [id number] [address] [place] [address], [place] [address] 15 Aug, 2012 [facility] [address] [id number] [address] [place] [address], [place] [address] Aug, [facility] [address] [id number] [address] [place] [address], [place] [address] Aug, [facility] [address] [id number] [address] [place] [address], [place] [address] Aug, [facility] [address] [id number] [address] [place] [address], [place] [address] Jul, [facility] [address] [id number] [address] [place] [address], [place] [address] Jul, [facility] [address] [id number] [address] [place] [address], [place] [address] Jul, [facility] [address] [id number] [address] [place] [address], [place] [address] Jul, [facility] [address] [id number] [address] [place] [address], [place] [address] Jul, [facility] [address] [id number] [address] [place] [address], [place] [address] Jul, [facility] [address] [id number] [address] [place] [address], [place] [address] Jul, [facility] [address] [id number] [address] [place] [address], [place] [address] Jul, [facility] [address] [id number] [address] [place] [address], [place] [address] Jul, [facility] [address] [id number] [address] [place] [address], [place] [address] Jul, [facility] [address] [id number] [address] [place] [address], [place] [address] May, [facility] [place] [address] [id number] [place] [id number] May, [facility] [address] [id number] [address] [place] [address], [place] [address] May, [facility] [address] [id number] [address] [place] [address] May, [facility] [address] [facility] [id number] [address] [place] [address] May, [facility] [address] [facility] [id number] [address] [place] [address] Apr, [facility] [place] [address] [id number] [place] [id number] Apr, [facility] [address] [facility] [id number] [address] [place] [address] Apr, [facility] [address] [facility] [id number] [address] [place] [address] Mar, [facility] [place] [address] [id number] [place] [id number] Mar, [facility] [address] [facility] [id number] [address] [place] [address] Mar, [facility] [place] [address] [id number] [place] [id number] Feb, [facility] [address] [facility] [id number] [address] [place] [address] Feb, [facility] [address] [facility] [id number] [address] [place] [address] Feb, [facility] [place] [address] [id number] [place] [id number] Feb, [facility] [place] [address] [id number] [place] [id number] Feb, [facility] [place] [address] [id number] [place] [id number] Jan, [facility] [address] [id number] [address] [place] [address], [place] [address] Jan, [facility] [place] [address] [id number] [place] [id number] Jan, [facility] [place] [address] [id number] [place] [id number] Jan, [facility] [place] [address] [id number] [place] [id number] Jan, [facility] [address] [facility] [id number] [address] [place] [address], [place] [address] Jan, [facility] [address] [facility] [id number] [address] [place] [address], [place] [address] Jan, [facility] [address] [facility] [id number] [address] [place] [address], [place] [address] Aug, [facility] [place] [address] [id number] [place] [id number] Aug, [facility] [address] [facility] [id number] [address] [place] [address], [place] [address] Jul, [facility] [address] [facility] [id number] [address] [place] [address], [place] [address] Jul, [facility] [address] [facility] [id number] [address] [place] [address], [place] [address] Jul, [facility] [place] [address] [id number] [place] [id number] Jul, [facility] [address] [facility] [id number] [address] [place] [address], [place] [address] Jul, [facility] [place] [address] [id number] [place] [id number] Jul, [facility] [address] [facility] [id number] [address] [place] [address], [place] [address] Jul, [facility] [place] [address] [id number] [place] [id number] Jul, [facility] [place] [address] [id number] [place] [id number] Jul, [facility] [place] [address] [id number] [place] [id number] Jul, [facility] [address] [facility] [id number] [address] [place] [address], [place] [address] May, [facility] [address] [id number] [address] [place] [id number] May, [facility] [address] [id number] [address] [place] [phone] May, [facility] [address] [id number] [address] [place] [id number] Apr, [facility] [address] [id number] [address] [place] [id number] Jan, [facility] [address] [id number] [address] [place] [id number] Jan, [facility] [address] [id number] [address] [place] [id number] Dec, [facility] [address] [id number] [address] [place] [id number] Dec, [facility] [address] [id number] [address] [place] [id number] May, [facility] [address] [id number] [address] [place] [id number] Mar, [facility] [address] [id number] [address] [place] [id number] Mar, [facility] [address] [id number] [address] [place] [phone] Jan, IMMUNIZATIONS No Known Immunizations SOCIAL HISTORY [...]
--- OUTSIDE RECORDS SUMMARY | 2020-01-28 12:45 | XMS REPORT ---
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.01 Active 453047624 Problem History of venous thromboembolism V12.51 Active 228581424 Problem Cellulitis of unspecified part of limb L03.119 Active 576573143 Problem Gastroesophageal reflux disease without esophagitis K21.9 Active 388812224 Problem History of pulmonary embolism Z86.711 Active 254868123 Problem Pseudotumor cerebri G93.2 Active 87536923 Problem History of DVT (deep vein thrombosis) Z86.718 Active [id number] ALLERGIES No Information ENCOUNTERS Encounter Location Date Diagnosis [place] [id number] [facility] [id number] [address] [place] [address] Apr, residential (current) use of 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 Z79.01 [facility] [address] [facility] [id number] [address] [place] [address] Apr, residential 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.01 [facility] [address] [facility] [id number] [address] [place] [address] Apr, Cellulitis of unspecified pa rt of limb L03.119 ; Allergic contact dermatitis due to adhesives L23.1 and Chronic pain syndrome G89.4 [facility] [address] [facility] [id number] [address] [place] [address] Apr, [place] [address] [place] [id number] [address] [place] [address] Apr, oil heaterman 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.01 ; Cellulitis of unspecified part of limb L03.119 ; Chronic pain syndrome G89.4 and Anxiety F41.9 [facility] [address] [place] [id number] [address] [place] [address] 16 Apr, 2015 [facility] [address] [place] [id number] [place] [address] Apr, [place] [address] [place] [id number] [place] [address] Mar, [place] [address] [address] Mar, [place] [address] [address] Mar, Sore throat J02.9 ; Gastroes ophageal reflux disease without esophagitis K21.9 ; Pseudotumor cerebri G93.2 ; Chronic pain syndrome G89.4 ; Choriocarcinoma C58 ; History of pulmonary embolism Z86.711 ; History of DVT (deep vein thrombosis) Z86.718 ; Anxiety F41.9 and Tachycardia R00.0 [place] [address] [address] Feb, Anxiety 300.00 and Chronic p ain 338.29 [place] [address] [place] [id number] [address] [place] [address] Feb, [place] [address] [place] [id number] [address] [place] [address] Feb, [place] [address] [address] Jan, oil heaterman 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 therapy V58.61 and Dysuria 788.1 [place] [address] [place] [id number] [place] [address] Jan, Dysuria 788.1 [facility] [address] [place] [id number] [address] [place] [address] Jan, Anxiety 300.00 and Chronic p ain 338.29 [facility] [address] [place] [id number] [place] [address] Jan, [facility] [address] [address] Jan, [facility] [address] [address] Jan, [place] [address] [address] Dec, Weakness 780.79 [place] [address] [address] Dec, residential 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 therapy V58.61 [place] [address] [address] Dec, Palpitations 785.1 ; Tremor 781.0 ; Weakness 780.79 ; residential current use of anticoagulant therapy V58.61 and Yeast vaginitis 112.1 [place] [address] [place] [id number] [address] [place] [address] Dec, [place] [address] [address] Dec, Cervicalgia 723.1 ; Tachycar yoseph 785.0 ; Pseudotumor cerebri 348.2 and History of venous thromboembolism V12.51 [place] [address] [address] Nov, [place] [address] [address] Nov, [place] [address] [address] Nov, Tachycardia 785.0 ; Pseudotu mor cerebri 348.2 ; Anxiety 300.00 and History of venous thromboembolism V12.51 [facility] [address] [id number] [address] [place] [address] Nov, [facility] [address] [id number] [address] [place] [address] 18 Nov, 2014 [facility] [address] [id number] [address] [place] [address] Nov, [facility] [address] [id number] [address] [place] [address] Nov, [facility] [address] [facility] [id number] [address] [place] [address] Nov, [facility] [address] [facility] [id number] [address] [place] [address] Nov, [facility] [address] [facility] [id number] [address] [place] [address] Nov, [facility] [address] [facility] [id number] [address] [place] [address] October, [facility] [address] [facility] [id number] [address] [place] [address] October, [facility] [address] [place] [id number] [address] [place] [address] October, Pain in thoracic spine 724.1 and Tachycardia 785.0 [facility] [address] [id number] [address] [place] [address] October, [facility] [address] [id number] [address] [place] [address] October, [facility] [address] [facility] [id number] [address] [place] [address] 14 Sep, 2014 [facility] [address] [facility] [id number] [address] [place] [address] Sep, [facility] [address] [id number] [facility] [place] [address] Aug, [facility] [address] [id number] [address] [place] [address], [place] [address] Aug, [facility] [address] [id number] [address] [place] [address], [place] [address] Aug, [facility] [address] [id number] [address] [place] [address], [place] [address] Aug, [facility] [address] [id number] [address] [place] [address], [place] [address] Aug, [facility] [address] [id number] [address] [place] [address], [place] [address] Aug, [facility] [address] [id number] [address] [place] [address], [place] [address] Aug, [facility] [address] [id number] [address] [place] [address], [place] [address] Aug, [facility] [address] [id number] [address] [place] [address], [place] [address] Aug, [facility] [address] [id number] [address] [place] [address], [place] [address] Aug, [facility] [address] [id number] [address] [place] [address], [place] [address] Aug, [facility] [address] [id number] [address] [place] [address], [place] [address] Aug, 2014 [facility] [address] [id number] [address] [place] [address], [place] [address] Jul, [facility] [address] [id number] [address] [place] [address], [place] [address] Jul, [facility] [address] [id number] [address] [place] [address], [place] [address] Jul, [facility] [address] [id number] [address] [place] [address], [place] [address] Jul, [facility] [address] [id number] [address] [place] [address], [place] [address] 23 Jul, 2014 [facility] [address] [id number] [address] [place] [address], [place] [address] 23 Jul, 2014 [facility] [address] [id number] [address] [place] [address], [place] [address] 23 Jul, 2014 [facility] [address] [id number] [address] [place] [address], [place] [address] 23 Jul, 2014 [facility] [address] [id number] [address] [place] [address], [place] [address] 20 Jul, 2014 [facility] [address] [id number] [address] [place] [address], [place] [address] 20 Jul, 2014 [facility] [address] [id number] [address] [place] [address], [place] [address] 19 Jul, 2014 [facility] [address] [id number] [address] [place] [address], [place] [address] 19 Jul, 2014 [facility] [address] [id number] [address] [place] [address], [place] [address] 17 Jul, 2014 [facility] [address] [id number] [address] [place] [address], [place] [address] 17 Jul, 2014 [facility] [address] [id number] [address] [place] [address], [place] [address] 16 Jul, 2014 [facility] [address] [id number] [address] [place] [address], [place] [address] 16 Jul, 2014 [facility] [address] [id number] [address] [place] [address], [place] [address] 16 Jul, 2014 [facility] [address] [id number] [address] [place] [address] 16 Jul, 2014 [facility] [address] [id number] [address] [place] [address] 13 Jul, 2014 [facility] [address] [id number] [address] [place] [address], [place] [address] Jul, [facility] [address] [id number] [address] [place] [address], [place] [address] Jul, [facility] [address] [id number] [address] [place] [address], [place] [address] Jul, 2014 [facility] [address] [id number] [address] [place] [address], [place] [address] Jul, 2014 [facility] [address] [id number] [address] [place] [address], [place] [address] Jul, [facility] [address] [id number] [address] [place] [address], [place] [address] Jul, [facility] [address] [id number] [address] [place] [address], [place] [address] Jul, [facility] [address] [id number] [address] [place] [address], [place] [address] Jul, [facility] [address] [id number] [address] [place] [address], [place] [address] Jul, [facility] [address] [id number] [address] [place] [address], [place] [address] Jul, [facility] [address] [id number] [address] [place] [address], [place] [address] Jul, [facility] [address] [id number] [address] [place] [address], [place] [address] Jun, [facility] [address] [id number] [address] [place] [address], [place] [address] Jun, [facility] [address] [id number] [address] [place] [address], [place] [address] Jun, [facility] [address] [id number] [address] [place] [address], [place] [address] Jun, [facility] [address] [id number] [address] [place] [address], [place] [address] Jun, [facility] [address] [id number] [address] [place] [address], [place] [address] Jun, [facility] [address] [id number] [address] [place] [address], [place] [address] Jun, [facility] [address] [id number] [address] [place] [address], [place] [address] Jun, [facility] [address] [id number] [address] [place] [address], [place] [address] Jun, [facility] [address] [id number] [address] [place] [address], [place] [address] Jun, [facility] [address] [id number] [address] [place] [address], [place] [address] Jun, [facility] [address] [id number] [address] [place] [address], [place] [address] Jun, [facility] [address] [id number] [address] [place] [address], [place] [address] Jun, [facility] [address] [id number] [address] [place] [address], [place] [address] Jun, [facility] [address] [id number] [address] [place] [address], [place] [address] Jun, [facility] [address] [id number] [address] [place] [address], [place] [address] Jun, [facility] [address] [id number] [address] [place] [address], [place] [address] Jun, [facility] [address] [id number] [address] [place] [address], [place] [address] Jun, [facility] [address] [id number] [address] [place] [address], [place] [address] Jun, [facility] [address] [id number] [address] [place] [address], [place] [address] Jun, [facility] [address] [id number] [address] [place] [address], [place] [address] May, [facility] [address] [id number] [address] [place] [address], [place] [address] May, [facility] [address] [id number] [address] [place] [address], [place] [address] May, [facility] [address] [id number] [address] [place] [address], [place] [address] May, [facility] [address] [id number] [address] [place] [address], [place] [address] May, [facility] [address] [id number] [address] [place] [address], [place] [address] May, [facility] [address] [id number] [address] [place] [address], [place] [address] May, [facility] [address] [id number] [address] [place] [address], [place] [address] May, [facility] [address] [id number] [address] [place] [address], [place] [address] May, [facility] [address] [id number] [address] [place] [address], [place] [address] May, [facility] [address] [id number] [address] [place] [address], [place] [address] May, [facility] [address] [id number] [address] [place] [address], [place] [address] 18 May, 2014 [facility] [address] [id number] [address] [place] [address], [place] [address] 18 May, 2014 [facility] [address] [id number] [address] [place] [address], [place] [address] 17 May, 2014 [facility] [address] [id number] [address] [place] [address], [place] [address] 16 May, 2014 [facility] [address] [id number] [address] [place] [address], [place] [address] 16 May, 2014 [facility] [address] [id number] [address] [place] [address], [place] [address] 15 May, 2014 [facility] [address] [id number] [address] [place] [address], [place] [address] 15 May, 2014 [facility] [address] [id number] [address] [place] [address], [place] [address] May, [facility] [address] [id number] [address] [place] [address], [place] [address] May, [facility] [address] [id number] [address] [place] [address], [place] [address] May, [facility] [address] [id number] [address] [place] [address], [place] [address] May, [facility] [address] [id number] [address] [place] [address], [place] [address] May, [facility] [address] [id number] [address] [place] [address], [place] [address] May, [facility] [address] [id number] [address] [place] [address], [place] [address] May, [facility] [address] [id number] [address] [place] [address], [place] [address] May, [facility] [address] [id number] [address] [place] [address], [place] [address] May, [facility] [address] [id number] [address] [place] [address], [place] [address] May, [facility] [address] [id number] [address] [place] [address], [place] [address] May, [facility] [address] [id number] [address] [place] [address], [place] [address] May, [facility] [address] [id number] [address] [place] [address], [place] [address] May, [facility] [address] [id number] [address] [place] [address], [place] [address] May, [facility] [address] [id number] [address] [place] [address], [place] [address] May, [facility] [address] [id number] [address] [place] [address], [place] [address] May, [facility] [address] [id number] [address] [place] [address], [place] [address] Apr, [facility] [address] [id number] [address] [place] [address], [place] [address] Apr, [facility] [address] [id number] [address] [place] [address], [place] [address] Apr, [facility] [address] [id number] [address] [place] [address], [place] [address] Apr, [facility] [address] [id number] [address] [place] [address], [place] [address] Apr, [facility] [address] [id number] [address] [place] [address], [place] [address] Apr, [facility] [address] [id number] [address] [place] [address], [place] [address] Apr, [facility] [address] [id number] [address] [place] [address], [place] [address] Apr, [facility] [address] [id number] [address] [place] [address], [place] [address] Apr, [facility] [address] [id number] [address] [place] [address], [place] [address] Apr, [facility] [address] [id number] [address] [place] [address], [place] [address] Mar, [facility] [address] [id number] [address] [place] [address], [place] [address] Mar, [facility] [address] [id number] [address] [place] [address] [address] Mar, [facility] [address] [id number] [address] [place] [address], [place] [address] 31 Mar, 2013 [facility] [address] [id number] [address] [place] [address], [place] [address] Mar, [facility] [address] [id number] [address] [place] [address], [place] [address] 30 Mar, 2014 [facility] [address] [id number] [address] [place] [address], [place] [address] Mar, [facility] [address] [id number] [address] [place] [address], [place] [address] Mar, [facility] [address] [id number] [address] [place] [address], [place] [address] Mar, [facility] [address] [id number] [address] [place] [address], [place] [address] Mar, [facility] [address] [id number] [address] [place] [id number] Mar, [facility] [address] [id number] [address] [place] [id number] Mar, [facility] [address] [id number] [address] [place] [id number] Mar, [facility] [address] [id number] [address] [place] [address] Mar, 2013 [facility] [address] [id number] [address] [place] [address] Mar, 2013 [facility] [address] [id number] [address] [place] [id number] Mar, [facility] [address] [id number] [address] [place] [id number] Mar, [facility] [address] [id number] [address] [place] [address] Mar, 2013 [facility] [address] [id number] [address] [place] [address], [place] [address] 02 Mar, 2013 [facility] [address] [id number] [address] [place] [address], [place] [address] 02 Mar, 2013 [facility] [address] [id number] [address] [place] [address], [place] [address] 05 Sep, 2013 [facility] [address] [id number] [address] [place] [address], [place] [address] 05 Sep, 2013 [facility] [address] [id number] [address] [place] [address], [place] [address] 04 Sep, 2013 [facility] [address] [id number] [address] [place] [address], [place] [address] 04 Sep, 2013 [facility] [address] [id number] [address] [place] [address], [place] [address] 03 Feb, 2013 [facility] [address] [id number] [address] [place] [address], [place] [address] 03 Feb, 2013 [facility] [address] [id number] [address] [place] [address], [place] [address] 02 Feb, 2013 [facility] [address] [id number] [address] [place] [address], [place] [address] Feb, 2013 [facility] [address] [id number] [address] [place] [address], [place] [address] 02 Feb, 2013 [facility] [address] [id number] [address] [place] [address], [place] [address] Feb, 2013 [facility] [address] [id number] [address] [place] [address], [place] [address] Jan, [facility] [address] [id number] [address] [place] [address], [place] [address] Jan, [facility] [address] [id number] [address] [place] [address], [place] [address] Jan, [facility] [address] [id number] [address] [place] [address], [place] [address] Jan, [facility] [address] [id number] [facility] [place] [address] Jan, [facility] [address] [id number] [address] [place] [address], [place] [address] Jan, [facility] [address] [id number] [address] [place] [address], [place] [address] Jan, [facility] [address] [id number] [address] [place] [address], [place] [address] Jan, [facility] [address] [id number] [address] [place] [address], [place] [address] Jan, [facility] [address] [id number] [address] [place] [address], [place] [address] Jan, [facility] [address] [id number] [address] [place] [address], [place] [address] Jan, [facility] [address] [id number] [address] [place] [address], [place] [address] Jan, [facility] [address] [id number] [address] [place] [address], [place] [address] Dec, [facility] [address] [id number] [address] [place] [address], [place] [address] Dec, [facility] [address] [id number] [address] [place] [address], [place] [address] Dec, [facility] [address] [address] [id number] [address] [place] [address], [place] [address] Dec, [facility] [address] [id number] [address] [place] [address], [place] [address] Dec, [facility] [address] [id number] [address] [place] [address], [place] [address] Dec, [facility] [address] [id number] [address] [place] [address], [place] [address] Dec, [facility] [address] [id number] [address] [place] [address], [place] [address] Dec, [facility] [address] [id number] [facility] [place] [address] Dec, [facility] [address] [id number] [address] [place] [address], [place] [address] Dec, [facility] [address] [id number] [address] [place] [address], [place] [address] Dec, [facility] [address] [id number] [address] [place] [address], [place] [address] Dec, [facility] [address] [id number] [address] [place] [address], [place] [address] Nov, [facility] [address] [id number] [address] [place] [address], [place] [address] Nov, [facility] [address] [id number] [address] [place] [address], [place] [address] Nov, [facility] [address] [id number] [address] [place] [address], [place] [address] Nov, [facility] [address] [id number] [address] [place] [address], [place] [address] Nov, [facility] [address] [id number] [address] [place] [address], [place] [address] Nov, [facility] [address] [id number] [address] [place] [address], [place] [address] Nov, [facility] [address] [id number] [address] [place] [address], [place] [address] Nov, [facility] [address] [id number] [address] [place] [address], [place] [address] Nov, [facility] [address] [id number] [address] [place] [address], [place] [address] Nov, [facility] [address] [id number] [address] [place] [address], [place] [address] Nov, [facility] [address] [id number] [facility] [place] [address] Nov, [facility] [address] [id number] [address] [place] [address], [place] [address] Nov, [facility] [address] [id number] [address] [place] [address], [place] [address] Nov, [facility] [address] [id number] [address] [place] [address], [place] [address] October, [facility] [address] [id number] [address] [place] [address], [place] [address] October, [facility] [address] [id number] [address] [place] [address], [place] [address] October, [facility] [address] [id number] [address] [place] [address], [place] [address] October, [facility] [address] [id number] [address] [place] [address], [place] [address] October, [facility] [address] [id number] [address] [place] [address], [place] [address] October, [facility] [address] [id number] [address] [place] [address], [place] [address] October, [facility] [address] [id number] [address] [place] [address], [place] [address] October, [facility] [address] [id number] [address] [place] [address], [place] [address] October, [facility] [address] [id number] [address] [place] [address], [place] [address] October, [facility] [address] [id number] [address] [place] [address], [place] [address] October, [facility] [address] [id number] [address] [place] [address], [place] [address] October, [facility] [address] [id number] [address] [place] [address], [place] [address] Sep, [facility] [address] [id number] [facility] [place] [address] Sep, [facility] [address] [id number] [address] [place] [address], [place] [address] Sep, [facility] [address] [id number] [facility] [place] [address] Sep, [facility] [address] [id number] [address] [place] [address], [place] [address] Sep, [facility] [address] [id number] [address] [place] [address], [place] [address] Sep, [facility] [address] [id number] [address] [place] [address], [place] [address] Aug, [facility] [address] [id number] [address] [place] [address], [place] [address] Aug, [facility] [address] [id number] [address] [place] [address], [place] [address] Aug, [facility] [address] [id number] [address] [place] [address], [place] [address] Aug, [facility] [address] [id number] [address] [place] [address], [place] [address] Aug, [facility] [address] [id number] [address] [place] [address], [place] [address] Aug, [facility] [address] [id number] [address] [place] [address], [place] [address] Jul, [facility] [address] [id number] [address] [place] [address], [place] [address] Jul, [facility] [address] [id number] [address] [place] [address], [place] [address] Jul, [facility] [address] [id number] [address] [place] [address], [place] [address] Jul, [facility] [address] [id number] [address] [place] [address], [place] [address] 13 Jul, 2013 [facility] [address] [id number] [address] [place] [address], [place] [address] Jul, [facility] [address] [id number] [address] [place] [address], [place] [address] Jul, [facility] [address] [id number] [address] [place] [address], [place] [address] Jul, [facility] [address] [id number] [address] [place] [address], [place] [address] Jul, [facility] [address] [id number] [address] [place] [address], [place] [address] Jul, [facility] [address] [id number] [address] [place] [address], [place] [address] Jun, [facility] [address] [id number] [address] [place] [address], [place] [address] Jun, [facility] [address] [id number] [address] [place] [address], [place] [address] Jun, [facility] [address] [id number] [address] [place] [address], [place] [address] Jun, [facility] [address] [id number] [address] [place] [address], [place] [address] Jun, [facility] [address] [id number] [address] [place] [address], [place] [address] Jun, [facility] [address] [id number] [address] [place] [address], [place] [address] Jun, [facility] [address] [id number] [address] [place] [address], [place] [address] Jun, [facility] [address] [id number] [address] [place] [address], [place] [address] May, [facility] [address] [id number] [address] [place] [address], [place] [address] May, [facility] [address] [id number] [address] [place] [address], [place] [address] May, [facility] [address] [id number] [address] [place] [address], [place] [address] May, [facility] [address] [id number] [address] [place] [address], [place] [address] May, [facility] [address] [id number] [address] [place] [address], [place] [address] May, [facility] [address] [id number] [address] [place] [address], [place] [address] May, [facility] [address] [id number] [address] [place] [address], [place] [address] May, [facility] [address] [id number] [address] [place] [address], [place] [address] Apr, [facility] [address] [id number] [address] [place] [address] Apr, [facility] [address] [id number] [address] [place] [address], [place] [address] Apr, [facility] [address] [id number] [address] [place] [address] Apr, [facility] [address] [id number] [address] [place] [address] Apr, [facility] [address] [id number] [address] [place] [address] Apr, [facility] [address] [id number] [address] [place] [address], [place] [address] Mar, [facility] [address] [id number] [address] [place] [address] Mar, [facility] [address] [id number] [address] [place] [address], [place] [address] Mar, [facility] [address] [id number] [address] [place] [address], [place] [address] Mar, [facility] [address] [id number] [address] [place] [address], [place] [address] Mar, [facility] [address] [id number] [address] [place] [address], [place] [address] Mar, [facility] [address] [id number] [address] [place] [address], [place] [address] Mar, [facility] [address] [id number] [address] [place] [address], [place] [address] 30 Feb, 2012 [facility] [address] [id number] [address] [place] [address], [place] [address] 30 Feb, 2013 [facility] [address] [id number] [address] [place] [address], [place] [address] 27 Feb, 2013 [facility] [address] [id number] [address] [place] [address], [place] [address] Feb, 2012 [facility] [address] [id number] [address] [place] [address], [place] [address] Feb, [facility] [address] [id number] [address] [place] [address], [place] [address] Feb, [facility] [address] [id number] [address] [place] [address], [place] [address] Jan, [facility] [address] [id number] [address] [place] [address], [place] [address] Jan, [facility] [address] [id number] [address] [place] [address], [place] [address] Jan, [facility] [address] [id number] [address] [place] [address], [place] [address] Jan, [facility] [address] [id number] [address] [place] [address], [place] [address] Jan, [facility] [address] [id number] [address] [place] [address], [place] [address] Jan, [facility] [address] [id number] [address] [place] [address], [place] [address] Jan, [facility] [address] [id number] [address] [place] [address], [place] [address] Jan, [facility] [address] [id number] [address] [place] [address], [place] [address] Jan, [facility] [address] [id number] [address] [place] [address], [place] [address] Dec, [facility] [address] [id number] [address] [place] [address], [place] [address] Dec, [facility] [address] [id number] [address] [place] [address], [place] [address] Dec, [facility] [address] [id number] [address] [place] [address], [place] [address] Dec, [facility] [address] [id number] [address] [place] [address], [place] [address] Dec, [facility] [address] [id number] [address] [place] [address], [place] [address] Dec, [facility] [address] [id number] [address] [place] [address], [place] [address] Dec, [facility] [address] [id number] [address] [place] [address], [place] [address] Dec, [facility] [address] [id number] [address] [place] [address], [place] [address] Dec, [facility] [address] [id number] [address] [place] [address], [place] [address] Dec, [facility] [address] [id number] [address] [place] [address], [place] [address] Dec, [facility] [address] [id number] [address] [place] [address], [place] [address] Dec, [facility] [address] [id number] [address] [place] [address], [place] [address] Dec, [facility] [address] [id number] [address] [place] [address], [place] [address] Nov, [facility] [address] [id number] [address] [place] [address], [place] [address] Nov, [facility] [address] [id number] [address] [place] [address], [place] [address] Nov, [facility] [address] [id number] [address] [place] [address], [place] [address] Nov, [facility] [address] [id number] [address] [place] [address], [place] [address] October, [facility] [address] [id number] [address] [place] [address], [place] [address] October, [facility] [address] [id number] [address] [place] [address], [place] [address] October, [facility] [address] [id number] [address] [place] [address], [place] [address] October, [facility] [address] [id number] [address] [place] [address], [place] [address] October, [facility] [address] [id number] [address] [place] [address], [place] [address] October, [facility] [address] [id number] [address] [place] [address], [place] [address] Sep, [facility] [address] [id number] [address] [place] [address], [place] [address] Sep, [facility] [address] [id number] [address] [place] [address], [place] [address] Sep, [facility] [address] [id number] [address] [place] [address], [place] [address] Sep, [facility] [address] [id number] [address] [place] [address], [place] [address] Sep, [facility] [address] [id number] [facility] [place] [address] 16 Sep, 2012 [facility] [address] [id number] [address] [place] [address], [place] [address] 12 Sep, 2012 [facility] [address] [id number] [address] [place] [address], [place] [address] Sep, [facility] [address] [id number] [address] [place] [address], [place] [address] Sep, [facility] [address] [id number] [address] [place] [address], [place] [address] Sep, [facility] [address] [id number] [address] [place] [address], [place] [address] Sep, [facility] [address] [id number] [address] [place] [address], [place] [address] Aug, [facility] [address] [id number] [address] [place] [address], [place] [address] 25 Aug, 2012 [facility] [address] [id number] [address] [place] [address], [place] [address] 25 Aug, 2012 [facility] [address] [id number] [address] [place] [address], [place] [address] 21 Aug, 2012 [facility] [address] [id number] [address] [place] [address], [place] [address] 19 Aug, 2012 [facility] [address] [id number] [address] [place] [address], [place] [address] 18 Aug, 2012 [facility] [address] [id number] [address] [place] [address], [place] [address] 17 Aug, 2012 [facility] [address] [id number] [address] [place] [address], [place] [address] 15 Aug, 2012 [facility] [address] [id number] [address] [place] [address], [place] [address] 15 Aug, 2012 [facility] [address] [id number] [address] [place] [address], [place] [address] Aug, [facility] [address] [id number] [address] [place] [address], [place] [address] Aug, [facility] [address] [id number] [address] [place] [address], [place] [address] Aug, [facility] [address] [id number] [address] [place] [address], [place] [address] Jul, [facility] [address] [id number] [address] [place] [address], [place] [address] Jul, [facility] [address] [id number] [address] [place] [address], [place] [address] Jul, [facility] [address] [id number] [address] [place] [address], [place] [address] Jul, [facility] [address] [id number] [address] [place] [address], [place] [address] Jul, [facility] [address] [id number] [address] [place] [address], [place] [address] Jul, [facility] [address] [id number] [address] [place] [address], [place] [address] Jul, [facility] [address] [id number] [address] [place] [address], [place] [id number] Jul, [facility] [address] [id number] [address] [place] [address], [place] [address] Jul, [facility] [address] [id number] [address] [place] [address], [place] [address] Jul, [facility] [address] [id number] [address] [place] [address], [place] [address] May, [facility] [address] [id number] [place] [id number] May, [facility] [address] [id number] [address] [place] [address], [place] [address] May, [facility] [address] [id number] [address] [place] [phone] May, [facility] [address] [facility] [id number] [address] [place] [phone] May, [facility] [address] [facility] [id number] [address] [place] [phone] Apr, [facility] [address] [id number] [place] [id number] Apr, [facility] [address] [facility] [id number] [address] [place] [phone] Apr, [facility] [address] [facility] [id number] [address] [place] [id number] Mar, [facility] [address] [id number] [place] [id number] Mar, [facility] [address] [facility] [id number] [address] [place] [phone] Mar, [facility] [address] [id number] [place] [id number] Feb, [facility] [address] [facility] [id number] [address] [place] [phone] Feb, [facility] [address] [facility] [id number] [address] [place] [phone] Feb, [facility] [address] [id number] [place] [id number] Feb, [facility] [address] [id number] [place] [id number] Feb, [facility] [address] [id number] [place] [id number] Jan, [facility] [address] [id number] [address] [place] [address], [place] [address] Jan, [facility] [address] [id number] [place] [id number] Jan, [facility] [address] [id number] [place] [id number] Jan, [facility] [address] [id number] [place] [id number] Jan, [facility] [address] [facility] [id number] [address] [place] [address], [place] [address] Jan, [facility] [address] [facility] [id number] [address] [place] [address], [place] [address] Jan, [facility] [address] [facility] [id number] [address] [place] [address], [place] [address] Aug, [facility] [address] [id number] [place] [id number] Aug, [facility] [address] [facility] [id number] [address] [place] [address], [place] [address] Jul, [facility] [address] [facility] [id number] [address] [place] [address], [place] [address] Jul, [facility] [address] [facility] [id number] [address] [place] [address], [place] [address] Jul, [facility] [address] [id number] [place] [id number] Jul, [facility] [address] [facility] [id number] [address] [place] [address], [place] [address] Jul, [facility] [address] [id number] [place] [id number] Jul, [facility] [address] [facility] [id number] [address] [place] [address], [place] [id number] Jul, [facility] [address] [id number] [place] [id number] Jul, [facility] [address] [id number] [place] [id number] Jul, [facility] [address] [id number] [place] [id number] Jul, [facility] [address] [facility] [id number] [address] [place] [address], [place] [address] May, [facility] [address] [id number] [address] [place] [phone] May, [facility] [address] [id number] [address] [place] [id number] May, [facility] [address] [id number] [address] [place] [id number] Apr, [facility] [address] [id number] [address] [place] [phone] Jan, [facility] [address] [id number] [address] [place] [id number] Jan, [facility] [address] [id number] [address] [place] [phone] Dec, [facility] [address] [id number] [address] [place] [phone] Dec, [facility] [address] [id number] [address] [place] [phone] May, [facility] [address] [id number] [address] [place] [id number] Mar, [facility] [address] [id number] [address] [place] [id number] Mar, [facility] [address] [id number] [address] [place] [phone] Jan, IMMUNIZATIONS No Known Immunizations SOCIAL HISTORY [...]
--- OUTSIDE RECORDS SUMMARY | 2020-01-28 12:45 | XMS REPORT ---
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 Active 764294151 Problem History of venous thromboembolism V12.51 Active 984638857 Problem Cellulitis of unspecified part of limb L03.119 Active 655210094 Problem Gastroesophageal reflux disease without esophagitis K21.9 Active 318874527 Problem History of pulmonary embolism Z86.711 Active 370956644 Problem Pseudotumor cerebri G93.2 Active 56658330 Problem History of DVT (deep vein thrombosis) Z86.718 Active [id number] ALLERGIES No Information ENCOUNTERS Encounter Location Date Diagnosis [place] [id number] [facility] [id number] [address] [place] [address] Apr, retirement (current) use of 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 Z79.01 [facility] [address] [facility] [id number] [address] [place] [address] Apr, retirement 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.01 [facility] [address] [facility] [id number] [address] [place] [address] Apr, Cellulitis of unspecified pa rt of limb L03.119 ; Allergic contact dermatitis due to adhesives L23.1 and Chronic pain syndrome G89.4 [facility] [address] [facility] [id number] [address] [place] [address] Apr, [place] [address] [place] [id number] [address] [place] [address] Apr, 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.01 ; Cellulitis of unspecified part of limb L03.119 ; Chronic pain syndrome G89.4 and Anxiety F41.9 [facility] [address] [place] [id number] [address] [place] [address] 16 Apr, 2015 [facility] [address] [place] [id number] [place] [address] Apr, [place] [address] [place] [id number] [place] [address] Mar, [place] [address] [address] Mar, [place] [address] [address] Mar, Sore throat J02.9 ; Gastroes ophageal reflux disease without esophagitis K21.9 ; Pseudotumor cerebri G93.2 ; Chronic pain syndrome G89.4 ; Choriocarcinoma C58 ; History of pulmonary embolism Z86.711 ; History of DVT (deep vein thrombosis) Z86.718 ; Anxiety F41.9 and Tachycardia R00.0 [place] [address] [address] Feb, Anxiety 300.00 and Chronic p ain 338.29 [place] [address] [place] [id number] [address] [place] [address] Feb, [place] [address] [place] [id number] [address] [place] [address] Feb, [place] [address] [address] Jan, 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 therapy V58.61 and Dysuria 788.1 [place] [address] [place] [id number] [place] [address] Jan, Dysuria 788.1 [facility] [address] [place] [id number] [address] [place] [address] Jan, Anxiety 300.00 and Chronic p ain 338.29 [facility] [address] [place] [id number] [place] [address] Jan, [facility] [address] [address] Jan, [facility] [address] [address] Jan, [place] [address] [address] Dec, Weakness 780.79 [place] [address] [address] Dec, retirement 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 therapy V58.61 [place] [address] [address] Dec, Palpitations 785.1 ; Tremor 781.0 ; Weakness 780.79 ; retirement current use of anticoagulant therapy V58.61 and Yeast vaginitis 112.1 [place] [address] [place] [id number] [address] [place] [address] Dec, [place] [address] [address] Dec, Cervicalgia 723.1 ; Tachycar yoseph 785.0 ; Pseudotumor cerebri 348.2 and History of venous thromboembolism V12.51 [place] [address] [address] Nov, [place] [address] [address] Nov, [place] [address] [address] Nov, Tachycardia 785.0 ; Pseudotu mor cerebri 348.2 ; Anxiety 300.00 and History of venous thromboembolism V12.51 [facility] [address] [id number] [address] [place] [address] Nov, [facility] [address] [id number] [address] [place] [address] 18 Nov, 2014 [facility] [address] [id number] [address] [place] [address] Nov, [facility] [address] [id number] [address] [place] [address] Nov, [facility] [address] [facility] [id number] [address] [place] [address] Nov, [facility] [address] [facility] [id number] [address] [place] [address] Nov, [facility] [address] [facility] [id number] [address] [place] [address] Nov, [facility] [address] [facility] [id number] [address] [place] [address] October, [facility] [address] [facility] [id number] [address] [place] [address] October, [facility] [address] [place] [id number] [address] [place] [address] October, Pain in thoracic spine 724.1 and Tachycardia 785.0 [facility] [address] [id number] [address] [place] [address] October, [facility] [address] [id number] [address] [place] [address] October, [facility] [address] [facility] [id number] [address] [place] [address] 14 Sep, 2014 [facility] [address] [facility] [id number] [address] [place] [id number] Sep, [facility] [address] [id number] [facility] [place] [address] Aug, [facility] [address] [id number] [address] [place] [address], [place] [address] Aug, [facility] [address] [id number] [address] [place] [address], [place] [address] Aug, [facility] [address] [id number] [address] [place] [address], [place] [address] Aug, [facility] [address] [id number] [address] [place] [address], [place] [address] Aug, [facility] [address] [id number] [address] [place] [address], [place] [address] Aug, [facility] [address] [id number] [address] [place] [address], [place] [address] Aug, [facility] [address] [id number] [address] [place] [address], [place] [address] Aug, [facility] [address] [id number] [address] [place] [address], [place] [address] Aug, [facility] [address] [id number] [address] [place] [address], [place] [address] Aug, [facility] [address] [id number] [address] [place] [address], [place] [address] Aug, [facility] [address] [id number] [address] [place] [address], [place] [address] Aug, 2014 [facility] [address] [id number] [address] [place] [address], [place] [address] Jul, [facility] [address] [id number] [address] [place] [address], [place] [address] Jul, [facility] [address] [id number] [address] [place] [address], [place] [address] Jul, [facility] [address] [id number] [address] [place] [address], [place] [address] Jul, [facility] [address] [id number] [address] [place] [address], [place] [address] 23 Jul, 2014 [facility] [address] [id number] [address] [place] [address], [place] [address] 23 Jul, 2014 [facility] [address] [id number] [address] [place] [address], [place] [address] 23 Jul, 2014 [facility] [address] [id number] [address] [place] [address], [place] [address] 23 Jul, 2014 [facility] [address] [id number] [address] [place] [address], [place] [address] 20 Jul, 2014 [facility] [address] [id number] [address] [place] [address], [place] [address] 20 Jul, 2014 [facility] [address] [id number] [address] [place] [address], [place] [address] 19 Jul, 2014 [facility] [address] [id number] [address] [place] [address], [place] [address] 19 Jul, 2014 [facility] [address] [id number] [address] [place] [address], [place] [address] 17 Jul, 2014 [facility] [address] [id number] [address] [place] [address], [place] [address] 17 Jul, 2014 [facility] [address] [id number] [address] [place] [address], [place] [address] 16 Jul, 2014 [facility] [address] [id number] [address] [place] [address], [place] [address] 16 Jul, 2014 [facility] [address] [id number] [address] [place] [address], [place] [address] 16 Jul, 2014 [facility] [address] [id number] [address] [place] [address] 16 Jul, 2014 [facility] [address] [id number] [address] [place] [address] 13 Jul, 2014 [facility] [address] [id number] [address] [place] [address], [place] [address] Jul, [facility] [address] [id number] [address] [place] [address], [place] [address] Jul, [facility] [address] [id number] [address] [place] [address], [place] [address] Jul, 2014 [facility] [address] [id number] [address] [place] [address], [place] [address] Jul, 2014 [facility] [address] [id number] [address] [place] [address], [place] [address] Jul, [facility] [address] [id number] [address] [place] [address], [place] [address] Jul, [facility] [address] [id number] [address] [place] [address], [place] [address] Jul, [facility] [address] [id number] [address] [place] [address], [place] [address] Jul, [facility] [address] [id number] [address] [place] [address], [place] [address] Jul, [facility] [address] [id number] [address] [place] [address], [place] [address] Jul, [facility] [address] [id number] [address] [place] [address], [place] [address] Jul, [facility] [address] [id number] [address] [place] [address], [place] [address] Jun, [facility] [address] [id number] [address] [place] [address], [place] [address] Jun, [facility] [address] [id number] [address] [place] [address], [place] [address] Jun, [facility] [address] [id number] [address] [place] [address], [place] [address] Jun, [facility] [address] [id number] [address] [place] [address], [place] [address] Jun, [facility] [address] [id number] [address] [place] [address], [place] [address] Jun, [facility] [address] [id number] [address] [place] [address], [place] [address] Jun, [facility] [address] [id number] [address] [place] [address], [place] [address] Jun, [facility] [address] [id number] [address] [place] [address], [place] [address] Jun, [facility] [address] [id number] [address] [place] [address], [place] [address] Jun, [facility] [address] [id number] [address] [place] [address], [place] [address] Jun, [facility] [address] [id number] [address] [place] [address], [place] [address] Jun, [facility] [address] [id number] [address] [place] [address], [place] [address] Jun, [facility] [address] [id number] [address] [place] [address], [place] [address] Jun, [facility] [address] [id number] [address] [place] [address], [place] [address] Jun, [facility] [address] [id number] [address] [place] [address], [place] [address] Jun, [facility] [address] [id number] [address] [place] [address], [place] [address] Jun, [facility] [address] [id number] [address] [place] [address], [place] [address] Jun, [facility] [address] [id number] [address] [place] [address], [place] [address] Jun, [facility] [address] [id number] [address] [place] [address], [place] [address] Jun, [facility] [address] [id number] [address] [place] [address], [place] [address] May, [facility] [address] [id number] [address] [place] [address], [place] [address] May, [facility] [address] [id number] [address] [place] [address], [place] [address] May, [facility] [address] [id number] [address] [place] [address], [place] [address] May, [facility] [address] [id number] [address] [place] [address], [place] [address] May, [facility] [address] [id number] [address] [place] [address], [place] [address] May, [facility] [address] [id number] [address] [place] [address], [place] [address] May, [facility] [address] [id number] [address] [place] [address], [place] [address] May, [facility] [address] [id number] [address] [place] [address], [place] [address] May, [facility] [address] [id number] [address] [place] [address], [place] [address] May, [facility] [address] [id number] [address] [place] [address], [place] [address] May, [facility] [address] [id number] [address] [place] [address], [place] [address] 18 May, 2014 [facility] [address] [id number] [address] [place] [address], [place] [address] 18 May, 2014 [facility] [address] [id number] [address] [place] [address], [place] [address] 17 May, 2014 [facility] [address] [id number] [address] [place] [address], [place] [address] 16 May, 2014 [facility] [address] [id number] [address] [place] [address], [place] [address] 16 May, 2014 [facility] [address] [id number] [address] [place] [address], [place] [address] 15 May, 2014 [facility] [address] [id number] [address] [place] [address], [place] [address] 15 May, 2014 [facility] [address] [id number] [address] [place] [address], [place] [address] May, [facility] [address] [id number] [address] [place] [address], [place] [address] May, [facility] [address] [id number] [address] [place] [address], [place] [address] May, [facility] [address] [id number] [address] [place] [address], [place] [address] May, [facility] [address] [id number] [address] [place] [address], [place] [address] May, [facility] [address] [id number] [address] [place] [address], [place] [address] May, [facility] [address] [id number] [address] [place] [address], [place] [address] May, [facility] [address] [id number] [address] [place] [address], [place] [address] May, [facility] [address] [id number] [address] [place] [address], [place] [address] May, [facility] [address] [id number] [address] [place] [address], [place] [address] May, [facility] [address] [id number] [address] [place] [address], [place] [address] May, [facility] [address] [id number] [address] [place] [address], [place] [address] May, [facility] [address] [id number] [address] [place] [address], [place] [address] May, [facility] [address] [id number] [address] [place] [address], [place] [address] May, [facility] [address] [id number] [address] [place] [address], [place] [address] May, [facility] [address] [id number] [address] [place] [address], [place] [address] May, [facility] [address] [id number] [address] [place] [address], [place] [address] Apr, [facility] [address] [id number] [address] [place] [address], [place] [address] Apr, [facility] [address] [id number] [address] [place] [address], [place] [address] Apr, [facility] [address] [id number] [address] [place] [address], [place] [address] Apr, [facility] [address] [id number] [address] [place] [address], [place] [address] Apr, [facility] [address] [id number] [address] [place] [address], [place] [address] Apr, [facility] [address] [id number] [address] [place] [address], [place] [address] Apr, [facility] [address] [id number] [address] [place] [address], [place] [address] Apr, [facility] [address] [id number] [address] [place] [address], [place] [address] Apr, [facility] [address] [id number] [address] [place] [address], [place] [address] Apr, [facility] [address] [id number] [address] [place] [address], [place] [address] Mar, [facility] [address] [id number] [address] [place] [address], [place] [address] Mar, [facility] [address] [id number] [address] [place] [address] [address] Mar, [facility] [address] [id number] [address] [place] [address], [place] [address] 31 Mar, 2013 [facility] [address] [id number] [address] [place] [address], [place] [address] Mar, [facility] [address] [id number] [address] [place] [address], [place] [address] 30 Mar, 2014 [facility] [address] [id number] [address] [place] [address], [place] [address] Mar, [facility] [address] [id number] [address] [place] [address], [place] [address] Mar, [facility] [address] [id number] [address] [place] [address], [place] [address] Mar, [facility] [address] [id number] [address] [place] [address], [place] [address] Mar, [facility] [address] [id number] [address] [place] [id number] Mar, [facility] [address] [id number] [address] [place] [id number] Mar, [facility] [address] [id number] [address] [place] [id number] Mar, [facility] [address] [id number] [address] [place] [id number] Mar, 2013 [facility] [address] [id number] [address] [place] [id number] Mar, 2013 [facility] [address] [id number] [address] [place] [id number] Mar, [facility] [address] [id number] [address] [place] [id number] Mar, [facility] [address] [id number] [address] [place] [id number] Mar, 2013 [facility] [address] [id number] [address] [place] [address], [place] [address] 02 Mar, 2013 [facility] [address] [id number] [address] [place] [address], [place] [address] 02 Mar, 2013 [facility] [address] [id number] [address] [place] [address], [place] [address] 05 Sep, 2013 [facility] [address] [id number] [address] [place] [address], [place] [address] 05 Sep, 2013 [facility] [address] [id number] [address] [place] [address], [place] [address] 04 Sep, 2013 [facility] [address] [id number] [address] [place] [address], [place] [address] 04 Sep, 2013 [facility] [address] [id number] [address] [place] [address], [place] [address] 03 Feb, 2013 [facility] [address] [id number] [address] [place] [address], [place] [address] 03 Feb, 2013 [facility] [address] [id number] [address] [place] [address], [place] [address] 02 Feb, 2013 [facility] [address] [id number] [address] [place] [address], [place] [address] Feb, 2013 [facility] [address] [id number] [address] [place] [address], [place] [address] 02 Feb, 2013 [facility] [address] [id number] [address] [place] [address], [place] [address] Feb, 2013 [facility] [address] [id number] [address] [place] [address], [place] [address] Jan, [facility] [address] [id number] [address] [place] [address], [place] [address] Jan, [facility] [address] [id number] [address] [place] [address], [place] [address] Jan, [facility] [address] [id number] [address] [place] [address], [place] [address] Jan, [facility] [address] [id number] [facility] [place] [address] Jan, [facility] [address] [id number] [address] [place] [address], [place] [address] Jan, [facility] [address] [id number] [address] [place] [address], [place] [address] Jan, [facility] [address] [id number] [address] [place] [address], [place] [address] Jan, [facility] [address] [id number] [address] [place] [address], [place] [address] Jan, [facility] [address] [id number] [address] [place] [address], [place] [address] Jan, [facility] [address] [id number] [address] [place] [address], [place] [address] Jan, [facility] [address] [id number] [address] [place] [address], [place] [address] Jan, [facility] [address] [id number] [address] [place] [address], [place] [address] Dec, [facility] [address] [id number] [address] [place] [address], [place] [address] Dec, [facility] [address] [id number] 17 [place] [address], [place] [address] Dec, [facility] [address] [id number] [address] [place] [address], [place] [address] Dec, [facility] [address] [id number] [address] [place] [address], [place] [address] Dec, [facility] [address] [id number] [address] [place] [address], [place] [address] Dec, [facility] [address] [id number] [address] [place] [address], [place] [address] Dec, [facility] [address] [id number] [address] [place] [address], [place] [address] Dec, [facility] [address] [id number] [facility] [place] [address] Dec, [facility] [address] [id number] [address] [place] [address], [place] [address] Dec, [facility] [address] [id number] [address] [place] [address], [place] [address] Dec, [facility] [address] [id number] [address] [place] [address], [place] [address] Dec, [facility] [address] [id number] [address] [place] [address], [place] [address] Nov, [facility] [address] [id number] [address] [place] [address], [place] [address] Nov, [facility] [address] [id number] [address] [place] [address], [place] [address] Nov, [facility] [address] [id number] [address] [place] [address], [place] [address] Nov, [facility] [address] [id number] [address] [place] [address], [place] [address] Nov, [facility] [address] [id number] [address] [place] [address], [place] [address] Nov, [facility] [address] [id number] [address] [place] [address], [place] [address] Nov, [facility] [address] [id number] [address] [place] [address], [place] [address] Nov, [facility] [address] [id number] [address] [place] [address], [place] [address] Nov, [facility] [address] [id number] [address] [place] [address], [place] [address] Nov, [facility] [address] [id number] [address] [place] [address], [place] [address] Nov, [facility] [address] [id number] [facility] [place] [address] Nov, [facility] [address] [id number] [address] [place] [address], [place] [address] Nov, [facility] [address] [id number] [address] [place] [address], [place] [address] Nov, [facility] [address] [id number] [address] [place] [address], [place] [address] October, [facility] [address] [id number] [address] [place] [address], [place] [address] October, [facility] [address] [id number] [address] [place] [address], [place] [address] October, [facility] [address] [id number] [address] [place] [address], [place] [address] October, [facility] [address] [id number] [address] [place] [address], [place] [address] October, [facility] [address] [id number] [address] [place] [address], [place] [address] October, [facility] [address] [id number] [address] [place] [address], [place] [address] October, [facility] [address] [id number] [address] [place] [address], [place] [address] October, [facility] [address] [id number] [address] [place] [address], [place] [address] October, [facility] [address] [id number] [address] [place] [address], [place] [address] October, [facility] [address] [id number] [address] [place] [address], [place] [address] October, [facility] [address] [id number] [address] [place] [address], [place] [address] October, [facility] [address] [id number] [address] [place] [address], [place] [address] Sep, [facility] [address] [id number] [facility] [place] [address] Sep, [facility] [address] [id number] [address] [place] [address], [place] [address] Sep, [facility] [address] [id number] [facility] [place] [address] Sep, [facility] [address] [id number] [address] [place] [address], [place] [address] Sep, [facility] [address] [id number] [address] [place] [address], [place] [address] Sep, [facility] [address] [id number] [address] [place] [address], [place] [address] Aug, [facility] [address] [id number] [address] [place] [address], [place] [address] Aug, [facility] [address] [id number] [address] [place] [address], [place] [address] Aug, [facility] [address] [id number] [address] [place] [address], [place] [address] Aug, [facility] [address] [id number] [address] [place] [address], [place] [address] Aug, [facility] [address] [id number] [address] [place] [address], [place] [address] Aug, [facility] [address] [id number] [address] [place] [address], [place] [address] Jul, [facility] [address] [id number] [address] [place] [address], [place] [address] Jul, [facility] [address] [id number] [address] [place] [address], [place] [address] Jul, [facility] [address] [id number] [address] [place] [address], [place] [address] Jul, [facility] [address] [id number] [address] [place] [address], [place] [address] 13 Jul, 2013 [facility] [address] [id number] [address] [place] [address], [place] [address] Jul, [facility] [address] [id number] [address] [place] [address], [place] [address] Jul, [facility] [address] [id number] [address] [place] [address], [place] [address] Jul, [facility] [address] [id number] [address] [place] [address], [place] [address] Jul, [facility] [address] [id number] [address] [place] [address], [place] [address] Jul, [facility] [address] [id number] [address] [place] [address], [place] [address] Jun, [facility] [address] [id number] [address] [place] [address], [place] [address] Jun, [facility] [address] [id number] [address] [place] [address], [place] [address] Jun, [facility] [address] [id number] [address] [place] [address], [place] [address] Jun, [facility] [address] [id number] [address] [place] [address], [place] [address] Jun, [facility] [address] [id number] [address] [place] [address], [place] [address] Jun, [facility] [address] [id number] [address] [place] [address], [place] [address] Jun, [facility] [address] [id number] [address] [place] [address], [place] [address] Jun, [facility] [address] [id number] [address] [place] [address], [place] [address] May, [facility] [address] [id number] [address] [place] [address], [place] [address] May, [facility] [address] [id number] [address] [place] [address], [place] [address] May, [facility] [address] [id number] [address] [place] [address], [place] [address] May, [facility] [address] [id number] [address] [place] [address], [place] [address] May, [facility] [address] [id number] [address] [place] [address], [place] [address] May, [facility] [address] [id number] [address] [place] [address], [place] [address] May, [facility] [address] [id number] [address] [place] [address], [place] [address] May, [facility] [address] [id number] [address] [place] [address], [place] [address] Apr, [facility] [address] [id number] [address] [place] [address] Apr, [facility] [address] [id number] [address] [place] [address], [place] [address] Apr, [facility] [address] [id number] [address] [place] [address] Apr, [facility] [address] [id number] [address] [place] [address] Apr, [facility] [address] [id number] [address] [place] [address] Apr, [facility] [address] [id number] [address] [place] [address], [place] [address] Mar, [facility] [address] [id number] [address] [place] [address] Mar, [facility] [address] [id number] [address] [place] [address], [place] [address] Mar, [facility] [address] [id number] [address] [place] [address], [place] [address] Mar, [facility] [address] [id number] [address] [place] [address], [place] [address] Mar, [facility] [address] [id number] [address] [place] [address], [place] [address] Mar, [facility] [address] [id number] [address] [place] [address], [place] [address] Mar, [facility] [address] [id number] [address] [place] [address], [place] [address] 30 Feb, 2012 [facility] [address] [id number] [address] [place] [address], [place] [address] 30 Feb, 2013 [facility] [address] [id number] [address] [place] [address], [place] [address] 27 Feb, 2013 [facility] [address] [id number] [address] [place] [address], [place] [address] Feb, 2012 [facility] [address] [id number] [address] [place] [address], [place] [address] Feb, [facility] [address] [id number] [address] [place] [address], [place] [address] Feb, [facility] [address] [id number] [address] [place] [address], [place] [address] Jan, [facility] [address] [id number] [address] [place] [address], [place] [address] Jan, [facility] [address] [id number] [address] [place] [address], [place] [address] Jan, [facility] [address] [id number] [address] [place] [address], [place] [address] Jan, [facility] [address] [id number] [address] [place] [address], [place] [address] Jan, [facility] [address] [id number] [address] [place] [address], [place] [address] Jan, [facility] [address] [id number] [address] [place] [address], [place] [address] Jan, [facility] [address] [id number] [address] [place] [address], [place] [address] Jan, [facility] [address] [id number] [address] [place] [address], [place] [address] Jan, [facility] [address] [id number] [address] [place] [address], [place] [address] Dec, [facility] [address] [id number] [address] [place] [address], [place] [address] Dec, [facility] [address] [id number] [address] [place] [address], [place] [address] Dec, [facility] [address] [id number] [address] [place] [address], [place] [address] Dec, [facility] [address] [id number] [address] [place] [address], [place] [address] Dec, [facility] [address] [id number] [address] [place] [address], [place] [address] Dec, [facility] [address] [id number] [address] [place] [address], [place] [address] Dec, [facility] [address] [id number] [address] [place] [address], [place] [address] Dec, [facility] [address] [id number] [address] [place] [address], [place] [address] Dec, [facility] [address] [id number] [address] [place] [address], [place] [address] Dec, [facility] [address] [id number] [address] [place] [address], [place] [address] Dec, [facility] [address] [id number] [address] [place] [address], [place] [address] Dec, [facility] [address] [id number] [address] [place] [address], [place] [address] Dec, [facility] [address] [id number] [address] [place] [address], [place] [address] Nov, [facility] [address] [id number] [address] [place] [address], [place] [address] Nov, [facility] [address] [id number] [address] [place] [address], [place] [address] Nov, [facility] [address] [id number] [address] [place] [address], [place] [address] Nov, [facility] [address] [id number] [address] [place] [address], [place] [address] October, [facility] [address] [id number] [address] [place] [address], [place] [address] October, [facility] [address] [id number] [address] [place] [address], [place] [address] October, [facility] [address] [id number] [address] [place] [address], [place] [address] October, [facility] [address] [id number] [address] [place] [address], [place] [address] October, [facility] [address] [id number] [address] [place] [address], [place] [address] October, [facility] [address] [id number] [address] [place] [address], [place] [address] Sep, [facility] [address] [id number] [address] [place] [address], [place] [address] Sep, [facility] [address] [id number] [address] [place] [address], [place] [address] Sep, [facility] [address] [id number] [address] [place] [address], [place] [address] Sep, [facility] [address] [id number] [address] [place] [address], [place] [address] Sep, [facility] [address] [id number] [facility] [place] [address] 16 Sep, 2012 [facility] [address] [id number] [address] [place] [address], [place] [address] 12 Sep, 2012 [facility] [address] [id number] [address] [place] [address], [place] [address] Sep, [facility] [address] [id number] [address] [place] [address], [place] [address] Sep, [facility] [address] [id number] [address] [place] [address], [place] [address] Sep, [facility] [address] [id number] [address] [place] [address], [place] [address] Sep, [facility] [address] [id number] [address] [place] [address], [place] [address] Aug, [facility] [address] [id number] [address] [place] [address], [place] [address] 25 Aug, 2012 [facility] [address] [id number] [address] [place] [address], [place] [address] 25 Aug, 2012 [facility] [address] [id number] [address] [place] [address], [place] [address] 21 Aug, 2012 [facility] [address] [id number] [address] [place] [address], [place] [address] 19 Aug, 2012 [facility] [address] [id number] [address] [place] [address], [place] [address] 18 Aug, 2012 [facility] [address] [id number] [address] [place] [address], [place] [address] 17 Aug, 2012 [facility] [address] [id number] [address] [place] [address], [place] [address] 15 Aug, 2012 [facility] [address] [id number] [address] [place] [address], [place] [address] 15 Aug, 2012 [facility] [address] [id number] [address] [place] [address], [place] [address] Aug, [facility] [address] [id number] [address] [place] [address], [place] [address] Aug, [facility] [address] [id number] [address] [place] [address], [place] [address] Aug, [facility] [address] [id number] [address] [place] [address], [place] [address] Jul, [facility] [address] [id number] [address] [place] [address], [place] [address] Jul, [facility] [address] [id number] [address] [place] [address], [place] [address] Jul, [facility] [address] [id number] [address] [place] [address], [place] [address] Jul, [facility] [address] [id number] [address] [place] [address], [place] [address] Jul, [facility] [address] [id number] [address] [place] [address], [place] [address] Jul, [facility] [address] [id number] [address] [place] [address], [place] [address] Jul, [facility] [address] [id number] [address] [place] [address], [place] [address] Jul, [facility] [address] [id number] [address] [place] [address], [place] [address] Jul, [facility] [address] [id number] [address] [place] [address], [place] [address] Jul, [facility] [address] [id number] [address] [place] [address], [place] [address] May, [facility] [address] [id number] [place] [id number] May, [facility] [address] [id number] [address] [place] [address], [place] [address] May, [facility] [address] [id number] [address] [place] [id number] May, [facility] [address] [facility] [id number] [address] [place] [phone] May, [facility] [address] [facility] [id number] [address] [place] [id number] Apr, [facility] [address] [id number] [place] [id number] Apr, [facility] [address] [facility] [id number] [address] [place] [phone] Apr, [facility] [address] [facility] [id number] [address] [place] [phone] Mar, [facility] [address] [id number] [place] [id number] Mar, [facility] [address] [facility] [id number] [address] [place] [id number] Mar, [facility] [address] [id number] [place] [id number] Feb, [facility] [address] [facility] [id number] [address] [place] [phone] Feb, [facility] [address] [facility] [id number] [address] [place] [phone] Feb, [facility] [place] [address] [id number] [place] [id number] Feb, [facility] [address] [id number] [place] [id number] Feb, [facility] [address] [id number] [place] [id number] Jan, [facility] [address] [id number] [address] [place] [address], [place] [address] Jan, [facility] [address] [id number] [place] [id number] Jan, [facility] [address] [id number] [place] [id number] Jan, [facility] [address] [id number] [place] [id number] Jan, [facility] [address] [facility] [id number] [address] [place] [address], [place] [address] Jan, [facility] [address] [facility] [id number] [address] [place] [address], [place] [address] Jan, [facility] [address] [facility] [id number] [address] [place] [address], [place] [address] Aug, [facility] [address] [id number] [place] [id number] Aug, [facility] [address] [facility] [id number] [address] [place] [address], [place] [address] Jul, [facility] [address] [facility] [id number] [address] [place] [address], [place] [address] Jul, [facility] [address] [facility] [id number] [address] [place] [address], [place] [address] Jul, [facility] [address] [id number] [place] [id number] Jul, [facility] [address] [facility] [id number] [address] [place] [address], [place] [address] Jul, [facility] [address] [id number] [place] [id number] Jul, [facility] [address] [facility] [id number] [address] [place] [address], [place] [address] Jul, [facility] [address] [id number] [place] [id number] Jul, [facility] [address] [id number] [place] [id number] Jul, [facility] [address] [id number] [place] [id number] Jul, [facility] [address] [facility] [id number] [address] [place] [address], [place] [address] May, [facility] [address] [id number] [address] [place] [phone] May, [facility] [address] [id number] [address] [place] [id number] May, [facility] [address] [id number] [address] [place] [phone] Apr, [facility] [address] [id number] [address] [place] [id number] Jan, [facility] [address] [id number] [address] [place] [phone] Jan, [facility] [address] [id number] [address] [place] [phone] Dec, [facility] [address] [id number] [address] [place] [phone] Dec, [facility] [address] [id number] [address] [place] [id number] May, [facility] [address] [id number] [address] [place] [id number] Mar, [facility] [address] [id number] [address] [place] [id number] Mar, [facility] [address] [id number] [address] [place] [phone] Jan, IMMUNIZATIONS No Known Immunizations SOCIAL HISTORY [...]
--- OUTSIDE RECORDS SUMMARY | 2020-01-28 12:45 | XMS REPORT ---
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 Active 205746962 Problem History of venous thromboembolism V12.51 Active 050802135 Problem Cellulitis of unspecified part of limb L03.119 Active 511857832 Problem Gastroesophageal reflux disease without esophagitis K21.9 Active 435841535 Problem History of pulmonary embolism Z86.711 Active 117205637 Problem Pseudotumor cerebri G93.2 Active 02491256 Problem History of DVT (deep vein thrombosis) Z86.718 Active 275013214 ALLERGIES No Information ENCOUNTERS Encounter Location Date Diagnosis [place] [id number] [facility] [id number] [address] [place] [address] Apr, [facility] (current) use of 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 Z79.01 [facility] [address] [facility] [id number] [address] [place] [address] Apr, [facility] 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.01 [facility] [address] [facility] [id number] [address] [place] [address] Apr, Cellulitis of unspecified pa rt of limb L03.119 ; Allergic contact dermatitis due to adhesives L23.1 and Chronic pain syndrome G89.4 [facility] [address] [facility] [id number] [address] [place] [address] Apr, [place] [address] [place] [id number] [address] [place] [address] Apr, 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.01 ; Cellulitis of unspecified part of limb L03.119 ; Chronic pain syndrome G89.4 and Anxiety F41.9 [facility] [address] [place] [id number] [address] [place] [address] 16 Apr, 2015 [facility] [address] [place] [id number] [place] [address] Apr, [place] [address] [place] [id number] [place] [address] Mar, [place] [address] [address] Mar, [place] [address] [address] Mar, Sore throat J02.9 ; Gastroes ophageal reflux disease without esophagitis K21.9 ; Pseudotumor cerebri G93.2 ; Chronic pain syndrome G89.4 ; Choriocarcinoma C58 ; History of pulmonary embolism Z86.711 ; History of DVT (deep vein thrombosis) Z86.718 ; Anxiety F41.9 and Tachycardia R00.0 [place] [address] [address] Feb, Anxiety 300.00 and Chronic p ain 338.29 [place] [address] [place] [id number] [address] [place] [address] Feb, [place] [address] [place] [id number] [address] [place] [address] Feb, [place] [address] [address] Jan, 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 therapy V58.61 and Dysuria 788.1 [place] [address] [place] [id number] [place] [address] Jan, Dysuria 788.1 [facility] [address] [place] [id number] [address] [place] [address] Jan, Anxiety 300.00 and Chronic p ain 338.29 [facility] [address] [place] [id number] [place] [address] Jan, [facility] [address] [address] Jan, [facility] [address] [address] Jan, [place] [address] [address] Dec, Weakness 780.79 [place] [address] [address] Dec, [facility] 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 therapy V58.61 [place] [address] [address] Dec, Palpitations 785.1 ; Tremor 781.0 ; Weakness 780.79 ; [facility] current use of anticoagulant therapy V58.61 and Yeast vaginitis 112.1 [place] [address] [place] [id number] [address] [place] [address] Dec, [place] [address] [address] Dec, Cervicalgia 723.1 ; Tachycar yoseph 785.0 ; Pseudotumor cerebri 348.2 and History of venous thromboembolism V12.51 [place] [address] [address] Nov, [place] [address] [address] Nov, [place] [address] [address] Nov, Tachycardia 785.0 ; Pseudotu mor cerebri 348.2 ; Anxiety 300.00 and History of venous thromboembolism V12.51 [facility] [address] [id number] [address] [place] [address] Nov, [facility] [address] [id number] [address] [place] [address] 18 Nov, 2014 [facility] [address] [id number] [address] [place] [address] Nov, [facility] [address] [id number] [address] [place] [address] Nov, [facility] [address] [facility] [id number] [address] [place] [address] Nov, [facility] [address] [facility] [id number] [address] [place] [address] Nov, [facility] [address] [facility] [id number] [address] [place] [address] Nov, [facility] [address] [facility] [id number] [address] [place] [address] October, [facility] [address] [facility] [id number] [address] [place] [address] October, [facility] [address] [place] [id number] [address] [place] [address] October, Pain in thoracic spine 724.1 and Tachycardia 785.0 [facility] [address] [id number] [address] [place] [address] October, [facility] [address] [id number] [address] [place] [address] October, [facility] [address] [facility] [id number] [address] [place] [address] 14 Sep, 2014 [facility] [address] [facility] [id number] [address] [place] [address] Sep, [facility] [address] [id number] [facility] [place] [address] Aug, [facility] [address] [id number] [address] [place] [address], [place] [address] Aug, [facility] [address] [id number] [address] [place] [address], [place] [address] Aug, [facility] [address] [id number] [address] [place] [address], [place] [address] Aug, [facility] [address] [id number] [address] [place] [address], [place] [address] Aug, [facility] [address] [id number] [address] [place] [address], [place] [address] Aug, [facility] [address] [id number] [address] [place] [address], [place] [address] Aug, [facility] [address] [id number] [address] [place] [address], [place] [address] Aug, [facility] [address] [id number] [address] [place] [address], [place] [address] Aug, [facility] [address] [id number] [address] [place] [address], [place] [address] Aug, [facility] [address] [id number] [address] [place] [address], [place] [address] Aug, [facility] [address] [id number] [address] [place] [address], [place] [address] Aug, 2014 [facility] [address] [id number] [address] [place] [address], [place] [address] Jul, [facility] [address] [id number] [address] [place] [address], [place] [address] Jul, [facility] [address] [id number] [address] [place] [address], [place] [address] Jul, [facility] [address] [id number] [address] [place] [address], [place] [address] Jul, [facility] [address] [id number] [address] [place] [address], [place] [address] 23 Jul, 2014 [facility] [address] [id number] [address] [place] [address], [place] [address] 23 Jul, 2014 [facility] [address] [id number] [address] [place] [address], [place] [address] 23 Jul, 2014 [facility] [address] [id number] [address] [place] [address], [place] [address] 23 Jul, 2014 [facility] [address] [id number] [address] [place] [address], [place] [address] 20 Jul, 2014 [facility] [address] [id number] [address] [place] [address], [place] [address] 20 Jul, 2014 [facility] [address] [id number] [address] [place] [address], [place] [address] 19 Jul, 2014 [facility] [address] [id number] [address] [place] [address], [place] [address] 19 Jul, 2014 [facility] [address] [id number] [address] [place] [address], [place] [address] 17 Jul, 2014 [facility] [address] [id number] [address] [place] [address], [place] [address] 17 Jul, 2014 [facility] [address] [id number] [address] [place] [address], [place] [address] 16 Jul, 2014 [facility] [address] [id number] [address] [place] [address], [place] [address] 16 Jul, 2014 [facility] [address] [id number] [address] [place] [address], [place] [address] 16 Jul, 2014 [facility] [address] [id number] [address] [place] [address] 16 Jul, 2014 [facility] [address] [id number] [address] [place] [address] 13 Jul, 2014 [facility] [address] [id number] [address] [place] [address], [place] [address] Jul, [facility] [address] [id number] [address] [place] [address], [place] [address] Jul, [facility] [address] [id number] [address] [place] [address], [place] [address] Jul, 2014 [facility] [address] [id number] [address] [place] [address], [place] [address] Jul, 2014 [facility] [address] [id number] [address] [place] [address], [place] [address] Jul, [facility] [address] [id number] [address] [place] [address], [place] [address] Jul, [facility] [address] [id number] [address] [place] [address], [place] [address] Jul, [facility] [address] [id number] [address] [place] [address], [place] [address] Jul, [facility] [address] [id number] [address] [place] [address], [place] [address] Jul, [facility] [address] [id number] [address] [place] [address], [place] [address] Jul, [facility] [address] [id number] [address] [place] [address], [place] [address] Jul, [facility] [address] [id number] [address] [place] [address], [place] [address] Jun, [facility] [address] [id number] [address] [place] [address], [place] [address] Jun, [facility] [address] [id number] [address] [place] [address], [place] [address] Jun, [facility] [address] [id number] [address] [place] [address], [place] [address] Jun, [facility] [address] [id number] [address] [place] [address], [place] [address] Jun, [facility] [address] [id number] [address] [place] [address], [place] [address] Jun, [facility] [address] [id number] [address] [place] [address], [place] [address] Jun, [facility] [address] [id number] [address] [place] [address], [place] [address] Jun, [facility] [address] [id number] [address] [place] [address], [place] [address] Jun, [facility] [address] [id number] [address] [place] [address], [place] [address] Jun, [facility] [address] [id number] [address] [place] [address], [place] [address] Jun, [facility] [address] [id number] [address] [place] [address], [place] [address] Jun, [facility] [address] [id number] [address] [place] [address], [place] [address] Jun, [facility] [address] [id number] [address] [place] [address], [place] [address] Jun, [facility] [address] [id number] [address] [place] [address], [place] [address] Jun, [facility] [address] [id number] [address] [place] [address], [place] [address] Jun, [facility] [address] [id number] [address] [place] [address], [place] [address] Jun, [facility] [address] [id number] [address] [place] [address], [place] [address] Jun, [facility] [address] [id number] [address] [place] [address], [place] [address] Jun, [facility] [address] [id number] [address] [place] [address], [place] [address] Jun, [facility] [address] [id number] [address] [place] [address], [place] [address] May, [facility] [address] [id number] [address] [place] [address], [place] [address] May, [facility] [address] [id number] [address] [place] [address], [place] [address] May, [facility] [address] [id number] [address] [place] [address], [place] [address] May, [facility] [address] [id number] [address] [place] [address], [place] [address] May, [facility] [address] [id number] [address] [place] [address], [place] [address] May, [facility] [address] [id number] [address] [place] [address], [place] [address] May, [facility] [address] [id number] [address] [place] [address], [place] [address] May, [facility] [address] [id number] [address] [place] [address], [place] [address] May, [facility] [address] [id number] [address] [place] [address], [place] [address] May, [facility] [address] [id number] [address] [place] [address], [place] [address] May, [facility] [address] [id number] [address] [place] [address], [place] [address] 18 May, 2014 [facility] [address] [id number] [address] [place] [address], [place] [address] 18 May, 2014 [facility] [address] [id number] [address] [place] [address], [place] [address] 17 May, 2014 [facility] [address] [id number] [address] [place] [address], [place] [address] 16 May, 2014 [facility] [address] [id number] [address] [place] [address], [place] [address] 16 May, 2014 [facility] [address] [id number] [address] [place] [address], [place] [address] 15 May, 2014 [facility] [address] [id number] [address] [place] [address], [place] [address] 15 May, 2014 [facility] [address] [id number] [address] [place] [address], [place] [address] May, [facility] [address] [id number] [address] [place] [address], [place] [address] May, [facility] [address] [id number] [address] [place] [address], [place] [address] May, [facility] [address] [id number] [address] [place] [address], [place] [address] May, [facility] [address] [id number] [address] [place] [address], [place] [address] May, [facility] [address] [id number] [address] [place] [address], [place] [address] May, [facility] [address] [id number] [address] [place] [address], [place] [address] May, [facility] [address] [id number] [address] [place] [address], [place] [address] May, [facility] [address] [id number] [address] [place] [address], [place] [address] May, [facility] [address] [id number] [address] [place] [address], [place] [address] May, [facility] [address] [id number] [address] [place] [address], [place] [address] May, [facility] [address] [id number] [address] [place] [address], [place] [address] May, [facility] [address] [id number] [address] [place] [address], [place] [address] May, [facility] [address] [id number] [address] [place] [address], [place] [address] May, [facility] [address] [id number] [address] [place] [address], [place] [address] May, [facility] [address] [id number] [address] [place] [address], [place] [address] May, [facility] [address] [id number] [address] [place] [address], [place] [address] Apr, [facility] [address] [id number] [address] [place] [address], [place] [address] Apr, [facility] [address] [id number] [address] [place] [address], [place] [address] Apr, [facility] [address] [id number] [address] [place] [address], [place] [address] Apr, [facility] [address] [id number] [address] [place] [address], [place] [address] Apr, [facility] [address] [id number] [address] [place] [address], [place] [address] Apr, [facility] [address] [id number] [address] [place] [address], [place] [address] Apr, [facility] [address] [id number] [address] [place] [address], [place] [address] Apr, [facility] [address] [id number] [address] [place] [address], [place] [address] Apr, [facility] [address] [id number] [address] [place] [address], [place] [address] Apr, [facility] [address] [id number] [address] [place] [address], [place] [address] Mar, [facility] [address] [id number] [address] [place] [address], [place] [address] Mar, [facility] [address] [id number] [address] [place] [address] [address] Mar, [facility] [address] [id number] [address] [place] [address], [place] [address] 31 Mar, 2013 [facility] [address] [id number] [address] [place] [address], [place] [address] Mar, [facility] [address] [id number] [address] [place] [address], [place] [address] 30 Mar, 2014 [facility] [address] [id number] [address] [place] [address], [place] [address] Mar, [facility] [address] [id number] [address] [place] [address], [place] [address] Mar, [facility] [address] [id number] [address] [place] [address], [place] [address] Mar, [facility] [address] [id number] [address] [place] [address], [place] [address] Mar, [facility] [address] [id number] [address] [place] [address] Mar, [facility] [address] [id number] [address] [place] [id number] Mar, [facility] [address] [id number] [address] [place] [id number] Mar, [facility] [address] [id number] [address] [place] [id number] Mar, 2013 [facility] [address] [id number] [address] [place] [id number] Mar, 2013 [facility] [address] [id number] [address] [place] [id number] Mar, [facility] [address] [id number] [address] [place] [id number] Mar, [facility] [address] [id number] [address] [place] [id number] Mar, 2013 [facility] [address] [id number] [address] [place] [address], [place] [address] 02 Mar, 2013 [facility] [address] [id number] [address] [place] [address], [place] [address] 02 Mar, 2013 [facility] [address] [id number] [address] [place] [address], [place] [address] 05 Sep, 2013 [facility] [address] [id number] [address] [place] [address], [place] [address] 05 Sep, 2013 [facility] [address] [id number] [address] [place] [address], [place] [address] 04 Sep, 2013 [facility] [address] [id number] [address] [place] [address], [place] [address] 04 Sep, 2013 [facility] [address] [id number] [address] [place] [address], [place] [address] 03 Feb, 2013 [facility] [address] [id number] [address] [place] [address], [place] [address] 03 Feb, 2013 [facility] [address] [id number] [address] [place] [address], [place] [address] 02 Feb, 2013 [facility] [address] [id number] [address] [place] [address], [place] [address] Feb, 2013 [facility] [address] [id number] [address] [place] [address], [place] [address] 02 Feb, 2013 [facility] [address] [id number] [address] [place] [address], [place] [address] Feb, 2013 [facility] [address] [id number] [address] [place] [address], [place] [address] Jan, [facility] [address] [id number] [address] [place] [address], [place] [address] Jan, [facility] [address] [id number] [address] [place] [address], [place] [address] Jan, [facility] [address] [id number] [address] [place] [address], [place] [address] Jan, [facility] [address] [id number] [facility] [place] [address] Jan, [facility] [address] [id number] [address] [place] [address], [place] [address] Jan, [facility] [address] [id number] [address] [place] [address], [place] [address] Jan, [facility] [address] [id number] [address] [place] [address], [place] [address] Jan, [facility] [address] [id number] [address] [place] [address], [place] [address] Jan, [facility] [address] [id number] [address] [place] [address], [place] [address] Jan, [facility] [address] [id number] [address] [place] [address], [place] [address] Jan, [facility] [address] [id number] [address] [place] [address], [place] [address] Jan, [facility] [address] [id number] [address] [place] [address], [place] [address] Dec, [facility] [address] [id number] [address] [place] [address], [place] [address] Dec, [facility] [address] [id number] [address] [place] [address], [place] [address] Dec, [facility] [address] [id number] [address] [place] [address], [place] [address] Dec, [facility] [address] [id number] [address] [place] [address], [place] [address] Dec, [facility] [address] [id number] [address] [place] [address], [place] [address] Dec, [facility] [address] [id number] [address] [place] [address], [place] [address] Dec, [facility] [address] [id number] [address] [place] [address], [place] [address] Dec, [facility] [address] [id number] [facility] [place] [address] Dec, [facility] [address] [id number] [address] [place] [address], [place] [address] Dec, [facility] [address] [address] [id number] [address] [place] [address], [place] [address] Dec, [facility] [address] [id number] [address] [place] [address], [place] [address] Dec, [facility] [address] [id number] [address] [place] [address], [place] [address] Nov, [facility] [address] [id number] [address] [place] [address], [place] [address] Nov, [facility] [address] [id number] [address] [place] [address], [place] [address] Nov, [facility] [address] [id number] [address] [place] [address], [place] [address] Nov, [facility] [address] [id number] [address] [place] [address], [place] [address] Nov, [facility] [address] [id number] [address] [place] [address], [place] [address] Nov, [facility] [address] [id number] [address] [place] [address], [place] [address] Nov, [facility] [address] [id number] [address] [place] [address], [place] [address] Nov, [facility] [address] [id number] [address] [place] [address], [place] [address] Nov, [facility] [address] [id number] [address] [place] [address], [place] [address] Nov, [facility] [address] [id number] [address] [place] [address], [place] [address] Nov, [facility] [address] [id number] [facility] [place] [address] Nov, [facility] [address] [id number] [address] [place] [address], [place] [address] Nov, [facility] [address] [id number] [address] [place] [address], [place] [address] Nov, [facility] [address] [id number] [address] [place] [address], [place] [address] October, [facility] [address] [id number] [address] [place] [address], [place] [address] October, [facility] [address] [id number] [address] [place] [address], [place] [address] October, [facility] [address] [id number] [address] [place] [address], [place] [address] October, [facility] [address] [id number] [address] [place] [address], [place] [address] October, [facility] [address] [id number] [address] [place] [address], [place] [address] October, [facility] [address] [id number] [address] [place] [address], [place] [address] October, [facility] [address] [id number] [address] [place] [address], [place] [address] October, [facility] [address] [id number] [address] [place] [address], [place] [address] October, [facility] [address] [id number] [address] [place] [address], [place] [address] October, [facility] [address] [id number] [address] [place] [address], [place] [address] October, [facility] [address] [id number] [address] [place] [address], [place] [address] October, [facility] [address] [id number] [address] [place] [address], [place] [address] Sep, [facility] [address] [id number] [facility] [place] [address] Sep, [facility] [address] [id number] [address] [place] [address], [place] [address] Sep, [facility] [address] [id number] [facility] [place] [address] Sep, [facility] [address] [id number] [address] [place] [address], [place] [address] Sep, [facility] [address] [id number] [address] [place] [address], [place] [address] Sep, [facility] [address] [id number] [address] [place] [address], [place] [address] Aug, [facility] [address] [id number] [address] [place] [address], [place] [address] Aug, [facility] [address] [id number] [address] [place] [address], [place] [address] Aug, [facility] [address] [id number] [address] [place] [address], [place] [address] Aug, [facility] [address] [id number] [address] [place] [address], [place] [address] Aug, [facility] [address] [id number] [address] [place] [address], [place] [address] Aug, [facility] [address] [id number] [address] [place] [address], [place] [address] Jul, [facility] [address] [id number] [address] [place] [address], [place] [address] Jul, [facility] [address] [id number] [address] [place] [address], [place] [address] Jul, [facility] [address] [id number] [address] [place] [address], [place] [address] Jul, [facility] [address] [id number] [address] [place] [address], [place] [address] 13 Jul, 2013 [facility] [address] [id number] [address] [place] [address], [place] [address] Jul, [facility] [address] [id number] [address] [place] [address], [place] [address] Jul, [facility] [address] [id number] [address] [place] [address], [place] [address] Jul, [facility] [address] [id number] [address] [place] [address], [place] [address] Jul, [facility] [address] [id number] [address] [place] [address], [place] [address] Jul, [facility] [address] [id number] [address] [place] [address], [place] [address] Jun, [facility] [address] [id number] [address] [place] [address], [place] [address] Jun, [facility] [address] [id number] [address] [place] [address], [place] [address] Jun, [facility] [address] [id number] [address] [place] [address], [place] [address] Jun, [facility] [address] [id number] [address] [place] [address], [place] [address] Jun, [facility] [address] [id number] [address] [place] [address], [place] [address] Jun, [facility] [address] [id number] [address] [place] [address], [place] [address] Jun, [facility] [address] [id number] [address] [place] [address], [place] [address] Jun, [facility] [address] [id number] [address] [place] [address], [place] [address] May, [facility] [address] [id number] [address] [place] [address], [place] [address] May, [facility] [address] [id number] [address] [place] [address], [place] [address] May, [facility] [address] [id number] [address] [place] [address], [place] [address] May, [facility] [address] [id number] [address] [place] [address], [place] [address] May, [facility] [address] [id number] [address] [place] [address], [place] [address] May, [facility] [address] [id number] [address] [place] [address], [place] [address] May, [facility] [address] [id number] [address] [place] [address], [place] [address] May, [facility] [address] [id number] [address] [place] [address], [place] [address] Apr, [facility] [address] [id number] [address] [place] [address] Apr, [facility] [address] [id number] [address] [place] [address], [place] [address] Apr, [facility] [address] [id number] [address] [place] [address] Apr, [facility] [address] [id number] [address] [place] [address] Apr, [facility] [address] [id number] [address] [place] [address] Apr, [facility] [address] [id number] [address] [place] [address], [place] [address] Mar, [facility] [address] [id number] [address] [place] [address] Mar, [facility] [address] [id number] [address] [place] [address], [place] [address] Mar, [facility] [address] [id number] [address] [place] [address], [place] [address] Mar, [facility] [address] [id number] [address] [place] [address], [place] [address] Mar, [facility] [address] [id number] [address] [place] [address], [place] [address] Mar, [facility] [address] [id number] [address] [place] [address], [place] [address] Mar, [facility] [address] [id number] [address] [place] [address], [place] [address] 30 Feb, 2012 [facility] [address] [id number] [address] [place] [address], [place] [address] 30 Feb, 2013 [facility] [address] [id number] [address] [place] [address], [place] [address] 27 Feb, 2013 [facility] [address] [id number] [address] [place] [address], [place] [address] Feb, 2012 [facility] [address] [id number] [address] [place] [address], [place] [address] Feb, [facility] [address] [id number] [address] [place] [address], [place] [address] Feb, [facility] [address] [id number] [address] [place] [address], [place] [address] Jan, [facility] [address] [id number] [address] [place] [address], [place] [address] Jan, [facility] [address] [id number] [address] [place] [address], [place] [address] Jan, [facility] [address] [id number] [address] [place] [address], [place] [address] Jan, [facility] [address] [id number] [address] [place] [address], [place] [address] Jan, [facility] [address] [id number] [address] [place] [address], [place] [address] Jan, [facility] [address] [id number] [address] [place] [address], [place] [address] Jan, [facility] [address] [id number] [address] [place] [address], [place] [address] Jan, [facility] [address] [id number] [address] [place] [address], [place] [address] Jan, [facility] [address] [id number] [address] [place] [address], [place] [address] Dec, [facility] [address] [id number] [address] [place] [address], [place] [address] Dec, [facility] [address] [id number] [address] [place] [address], [place] [address] Dec, [facility] [address] [id number] [address] [place] [address], [place] [address] Dec, [facility] [address] [id number] [address] [place] [address], [place] [address] Dec, [facility] [address] [id number] [address] [place] [address], [place] [address] Dec, [facility] [address] [id number] [address] [place] [address], [place] [address] Dec, [facility] [address] [id number] [address] [place] [address], [place] [address] Dec, [facility] [address] [id number] [address] [place] [address], [place] [address] Dec, [facility] [address] [id number] [address] [place] [address], [place] [address] Dec, [facility] [address] [id number] [address] [place] [address], [place] [address] Dec, [facility] [address] [id number] [address] [place] [address], [place] [address] Dec, [facility] [address] [id number] [address] [place] [address], [place] [address] Dec, [facility] [address] [id number] [address] [place] [address], [place] [address] Nov, [facility] [address] [id number] [address] [place] [address], [place] [address] Nov, [facility] [address] [id number] [address] [place] [address], [place] [address] Nov, [facility] [address] [id number] [address] [place] [address], [place] [address] Nov, [facility] [address] [id number] [address] [place] [address], [place] [address] October, [facility] [address] [id number] [address] [place] [address], [place] [address] October, [facility] [address] [id number] [address] [place] [address], [place] [address] October, [facility] [address] [id number] [address] [place] [address], [place] [address] October, [facility] [address] [id number] [address] [place] [address], [place] [address] October, [facility] [address] [id number] [address] [place] [address], [place] [address] October, [facility] [address] [id number] [address] [place] [address], [place] [address] Sep, [facility] [address] [id number] [address] [place] [address], [place] [address] Sep, [facility] [address] [id number] [address] [place] [address], [place] [address] Sep, [facility] [address] [id number] [address] [place] [address], [place] [address] Sep, [facility] [address] [id number] [address] [place] [address], [place] [address] Sep, [facility] [address] [id number] [facility] [place] [address] 16 Sep, 2012 [facility] [address] [id number] [address] [place] [address], [place] [address] 12 Sep, 2012 [facility] [address] [id number] [address] [place] [address], [place] [address] Sep, [facility] [address] [id number] [address] [place] [address], [place] [address] Sep, [facility] [address] [id number] [address] [place] [address], [place] [address] Sep, [facility] [address] [id number] [address] [place] [address], [place] [address] Sep, [facility] [address] [id number] [address] [place] [address], [place] [address] Aug, [facility] [address] [id number] [address] [place] [address], [place] [address] 25 Aug, 2012 [facility] [address] [id number] [address] [place] [address], [place] [address] 25 Aug, 2012 [facility] [address] [id number] [address] [place] [address], [place] [address] 21 Aug, 2012 [facility] [address] [id number] [address] [place] [address], [place] [address] 19 Aug, 2012 [facility] [address] [id number] [address] [place] [address], [place] [address] 18 Aug, 2012 [facility] [address] [id number] [address] [place] [address], [place] [address] 17 Aug, 2012 [facility] [address] [id number] [address] [place] [address], [place] [address] 15 Aug, 2012 [facility] [address] [id number] [address] [place] [address], [place] [address] 15 Aug, 2012 [facility] [address] [id number] [address] [place] [address], [place] [address] Aug, [facility] [address] [id number] [address] [place] [address], [place] [address] Aug, [facility] [address] [id number] [address] [place] [address], [place] [address] Aug, [facility] [address] [id number] [address] [place] [address], [place] [address] Jul, [facility] [address] [id number] [address] [place] [address], [place] [address] Jul, [facility] [address] [id number] [address] [place] [address], [place] [address] Jul, [facility] [address] [id number] [address] [place] [address], [place] [address] Jul, [facility] [address] [id number] [address] [place] [address], [place] [address] Jul, [facility] [address] [id number] [address] [place] [address], [place] [address] Jul, [facility] [address] [id number] [address] [place] [address], [place] [address] Jul, [facility] [address] [id number] [address] [place] [address], [place] [address] Jul, [facility] [address] [id number] [address] [place] [address], [place] [address] Jul, [facility] [address] [id number] [address] [place] [address], [place] [address] Jul, [facility] [address] [id number] [address] [place] [address], [place] [address] May, [facility] [address] [id number] [place] [id number] May, [facility] [address] [id number] [address] [place] [address], [place] [address] May, [facility] [address] [id number] [address] [place] [address] May, [facility] [address] [facility] [id number] [address] [place] [address] May, [facility] [address] [facility] [id number] [address] [place] [address] Apr, [facility] [place] [address] [id number] [place] [id number] Apr, [facility] [address] [facility] [id number] [address] [place] [address] Apr, [facility] [address] [facility] [id number] [address] [place] [address] Mar, [facility] [address] [id number] [place] [id number] Mar, [facility] [address] [facility] [id number] [address] [place] [address] Mar, [facility] [address] [id number] [place] [id number] Feb, [facility] [address] [facility] [id number] [address] [place] [address] Feb, [facility] [address] [facility] [id number] [address] [place] [id number] Feb, [facility] [address] [id number] [place] [id number] Feb, [facility] [address] [id number] [place] [id number] Feb, [facility] [address] [id number] [place] [id number] Jan, [facility] [address] [id number] [address] [place] [address], [place] [address] Jan, [facility] [address] [id number] [place] [id number] Jan, [facility] [address] [id number] [place] [id number] Jan, [facility] [address] [id number] [place] [id number] Jan, [facility] [address] [facility] [id number] [address] [place] [address], [place] [address] Jan, [facility] [address] [facility] [id number] [address] [place] [address], [place] [address] Jan, [facility] [address] [facility] [id number] [address] [place] [address], [place] [address] Aug, [facility] [address] [id number] [place] [id number] Aug, [facility] [address] [facility] [id number] [address] [place] [address], [place] [address] Jul, [facility] [address] [facility] [id number] [address] [place] [address], [place] [address] Jul, [facility] [address] [facility] [id number] [address] [place] [address], [place] [address] Jul, [facility] [address] [id number] [place] [id number] Jul, [facility] [address] [facility] [id number] [address] [place] [address], [place] [address] Jul, [facility] [address] [id number] [place] [id number] Jul, [facility] [address] [facility] [id number] [address] [place] [address], [place] [address] Jul, [facility] [address] [id number] [place] [id number] Jul, [facility] [address] [id number] [place] [id number] Jul, [facility] [address] [id number] [place] [id number] Jul, [facility] [address] [facility] [id number] [address] [place] [address], [place] [address] May, [facility] [address] [id number] [address] [place] [phone] May, [facility] [address] [id number] [address] [place] [id number] May, [facility] [address] [id number] [address] [place] [id number] Apr, [facility] [address] [id number] [address] [place] [id number] Jan, [facility] [address] [id number] [address] [place] [id number] Jan, [facility] [address] [id number] [address] [place] [id number] Dec, [facility] [address] [id number] [address] [place] [id number] Dec, [facility] [address] [id number] [address] [place] [id number] May, [facility] [address] [id number] [address] [place] [id number] Mar, [facility] [address] [id number] [address] [place] [id number] Mar, [facility] [address] [id number] [address] [place] [id number] Jan, IMMUNIZATIONS No Known Immunizations SOCIAL HISTORY Never Assessed REASON FOR VISIT PLAN OF CARE VITAL SIGNS Height 63 in 2014-03-28 Weight 194.4 lbs 2014-03-28 Temperature 98 degrees Fahrenheit 2014-03-28 Heart Rate 84 bpm 2014-03-28 Respiratory Rate 16 2014-03-28 Blood pressure systolic 126 mmHg 2014-03-28 Blood pressure diastolic 84 mmHg 2014-03-28 MEDICATIONS Unknown Medications RESULTS No Results PROCEDURES Procedure Date Ordered Result Body Site PROTHROMBIN TIME Mar 28, 2014 INSTRUCTIONS MEDICATIONS ADMINISTERED No Known Medications [...]
--- OUTSIDE RECORDS SUMMARY | 2020-01-28 12:46 | XMS REPORT ---
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 Active 794845873 Problem History of venous thromboembolism V12.51 Active 508738768 Problem Cellulitis of unspecified part of limb L03.119 Active 109118082 Problem Gastroesophageal reflux disease without esophagitis K21.9 Active 598254468 Problem History of pulmonary embolism Z86.711 Active 141740194 Problem Pseudotumor cerebri G93.2 Active 05382306 Problem History of DVT (deep vein thrombosis) Z86.718 Active 650764730 ALLERGIES No Information ENCOUNTERS Encounter Location Date Diagnosis [place] [address] [facility] [id number] [address] [place] [id number] Apr, snf (current) use of 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 Z79.01 [facility] [address] [facility] [id number] [address] [place] [phone] Apr, snf 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.01 [facility] [address] [facility] [id number] [address] [place] [phone] Apr, Cellulitis of unspecified pa rt of limb L03.119 ; Allergic contact dermatitis due to adhesives L23.1 and Chronic pain syndrome G89.4 [facility] [address] [facility] [id number] [address] [place] [phone] Apr, [place] [address] [place] [id number] [address] [place] [phone] Apr, 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.01 ; Cellulitis of unspecified part of limb L03.119 ; Chronic pain syndrome G89.4 and Anxiety F41.9 [facility] [address] [place] [id number] [address] [place] [id number] 16 Apr, 2015 [facility] [address] [place] [id number] [place] [phone] Apr, [place] [address] [place] [id number] [place] [phone] Mar, [place] [address] [address] Mar, [place] [address] [address] Mar, Sore throat J02.9 ; Gastroes ophageal reflux disease without esophagitis K21.9 ; Pseudotumor cerebri G93.2 ; Chronic pain syndrome G89.4 ; Choriocarcinoma C58 ; History of pulmonary embolism Z86.711 ; History of DVT (deep vein thrombosis) Z86.718 ; Anxiety F41.9 and Tachycardia R00.0 [place] [address] [address] Feb, Anxiety 300.00 and Chronic p ain 338.29 [place] [address] [place] [id number] [address] [place] [phone] Feb, [place] [address] [place] [id number] [address] [place] [phone] Feb, [place] [address] [address] Jan, 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 therapy V58.61 and Dysuria 788.1 [place] [address] [place] [id number] [place] [phone] Jan, Dysuria 788.1 [facility] [address] [place] [id number] [address] [place] [phone] Jan, Anxiety 300.00 and Chronic p ain 338.29 [facility] [address] [place] [id number] [place] [phone] Jan, [facility] [address] [address] Jan, [facility] [address] [address] Jan, [place] [address] [address] Dec, Weakness 780.79 [place] [address] [address] Dec, snf 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 therapy V58.61 [place] [address] [address] Dec, Palpitations 785.1 ; Tremor 781.0 ; Weakness 780.79 ; snf current use of anticoagulant therapy V58.61 and Yeast vaginitis 112.1 [place] [address] [place] [id number] [address] [place] [phone] Dec, [place] [address] [address] Dec, Cervicalgia 723.1 ; Tachycar yoseph 785.0 ; Pseudotumor cerebri 348.2 and History of venous thromboembolism V12.51 [place] [address] [address] Nov, [place] [address] [address] Nov, [place] [address] [address] Nov, Tachycardia 785.0 ; Pseudotu mor cerebri 348.2 ; Anxiety 300.00 and History of venous thromboembolism V12.51 [facility] [address] [id number] [address] [place] [phone] Nov, [facility] [address] [id number] [address] [place] [phone] 18 Nov, 2014 [facility] [address] [id number] [address] [place] [phone] Nov, [facility] [address] [id number] [address] [place] [phone] Nov, [facility] [address] [facility] [id number] [address] [place] [phone] Nov, [facility] [address] [facility] [id number] [address] [place] [phone] Nov, [facility] [address] [facility] [id number] [address] [place] [phone] Nov, [facility] [address] [facility] [id number] [address] [place] [phone] October, [facility] [address] [facility] [id number] [address] [place] [phone] October, [facility] [address] [place] [id number] [address] [place] [phone] October, Pain in thoracic spine 724.1 and Tachycardia 785.0 [facility] [address] [id number] [address] [place] [phone] October, [facility] [address] [id number] [address] [place] [phone] October, [facility] [address] [facility] [id number] [address] [place] [phone] 14 Sep, 2014 [facility] [address] [facility] [id number] [address] [place] [phone] Sep, [facility] [address] [id number] [facility] [place] [address] Aug, [facility] [address] [id number] [address] [place] [address], [place] [address] Aug, [facility] [address] [id number] [address] [place] [address], [place] [address] Aug, [facility] [address] [id number] [address] [place] [address], [place] [address] Aug, [facility] [address] [id number] [address] [place] [address], [place] [address] Aug, [facility] [address] [id number] [address] [place] [address], [place] [address] Aug, [facility] [address] [id number] [address] [place] [address], [place] [address] Aug, [facility] [address] [id number] [address] [place] [address], [place] [address] Aug, [facility] [address] [id number] [address] [place] [address], [place] [address] Aug, [facility] [address] [id number] [address] [place] [address], [place] [address] Aug, [facility] [address] [id number] [address] [place] [address], [place] [address] Aug, [facility] [address] [id number] [address] [place] [address], [place] [address] Aug, 2014 [facility] [address] [id number] [address] [place] [address], [place] [address] Jul, [facility] [address] [id number] [address] [place] [address], [place] [address] Jul, [facility] [address] [id number] [address] [place] [address], [place] [address] Jul, [facility] [address] [id number] [address] [place] [address], [place] [address] Jul, [facility] [address] [id number] [address] [place] [address], [place] [address] 23 Jul, 2014 [facility] [address] [id number] [address] [place] [address], [place] [address] 23 Jul, 2014 [facility] [address] [id number] [address] [place] [address], [place] [address] 23 Jul, 2014 [facility] [address] [id number] [address] [place] [address], [place] [address] 23 Jul, 2014 [facility] [address] [id number] [address] [place] [address], [place] [address] 20 Jul, 2014 [facility] [address] [id number] [address] [place] [address], [place] [address] 20 Jul, 2014 [facility] [address] [id number] [address] [place] [address], [place] [address] 19 Jul, 2014 [facility] [address] [id number] [address] [place] [address], [place] [address] 19 Jul, 2014 [facility] [address] [id number] [address] [place] [address], [place] [id number] 17 Jul, 2014 [facility] [address] [id number] [address] [place] [address], [place] [address] 17 Jul, 2014 [facility] [address] [id number] [address] [place] [address], [place] [address] 16 Jul, 2014 [facility] [address] [id number] [address] [place] [address], [place] [address] 16 Jul, 2014 [facility] [address] [id number] [address] [place] [address], [place] [address] 16 Jul, 2014 [facility] [address] [id number] [address] [place] [id number] 16 Jul, 2014 [facility] [address] [id number] [address] [place] [id number] 13 Jul, 2014 [facility] [address] [id number] [address] [place] [address], [place] [address] Jul, [facility] [address] [id number] [address] [place] [address], [place] [address] Jul, [facility] [address] [id number] [address] [place] [address], [place] [address] Jul, 2014 [facility] [address] [id number] [address] [place] [address], [place] [address] Jul, 2014 [facility] [address] [id number] [address] [place] [address], [place] [address] Jul, [facility] [address] [id number] [address] [place] [address], [place] [address] Jul, [facility] [address] [id number] [address] [place] [address], [place] [address] Jul, [facility] [address] [id number] [address] [place] [address], [place] [address] Jul, [facility] [address] [id number] [address] [place] [address], [place] [address] Jul, [facility] [address] [id number] [address] [place] [address], [place] [address] Jul, [facility] [address] [id number] [address] [place] [address], [place] [address] Jul, [facility] [address] [id number] [address] [place] [address], [place] [address] Jun, [facility] [address] [id number] [address] [place] [address], [place] [address] Jun, [facility] [address] [id number] [address] [place] [address], [place] [address] Jun, [facility] [address] [id number] [address] [place] [address], [place] [address] Jun, [facility] [address] [id number] [address] [place] [address], [place] [address] Jun, [facility] [address] [id number] [address] [place] [address], [place] [address] Jun, [facility] [address] [id number] [address] [place] [address], [place] [address] Jun, [facility] [address] [id number] [address] [place] [address], [place] [address] Jun, [facility] [address] [id number] [address] [place] [address], [place] [address] Jun, [facility] [address] [id number] [address] [place] [address], [place] [address] Jun, [facility] [address] [id number] [address] [place] [address], [place] [address] Jun, [facility] [address] [id number] [address] [place] [address], [place] [address] Jun, [facility] [address] [id number] [address] [place] [address], [place] [address] Jun, [facility] [address] [id number] [address] [place] [address], [place] [address] Jun, [facility] [address] [id number] [address] [place] [address], [place] [address] Jun, [facility] [address] [id number] [address] [place] [address], [place] [address] Jun, [facility] [address] [id number] [address] [place] [address], [place] [address] Jun, [facility] [address] [id number] [address] [place] [address], [place] [address] Jun, [facility] [address] [id number] [address] [place] [address], [place] [address] Jun, [facility] [address] [id number] [address] [place] [address], [place] [address] Jun, [facility] [address] [id number] [address] [place] [address], [place] [address] May, [facility] [address] [id number] [address] [place] [address], [place] [address] May, [facility] [address] [id number] [address] [place] [address], [place] [address] May, [facility] [address] [id number] [address] [place] [address], [place] [address] May, [facility] [address] [id number] [address] [place] [address], [place] [address] May, [facility] [address] [id number] [address] [place] [address], [place] [address] May, [facility] [address] [id number] [address] [place] [address], [place] [address] May, [facility] [address] [id number] [address] [place] [address], [place] [address] May, [facility] [address] [id number] [address] [place] [address], [place] [address] May, [facility] [address] [id number] [address] [place] [address], [place] [address] May, [facility] [address] [id number] [address] [place] [address], [place] [address] May, [facility] [address] [id number] [address] [place] [address], [place] [address] 18 May, 2014 [facility] [address] [id number] [address] [place] [address], [place] [address] 18 May, 2014 [facility] [address] [id number] [address] [place] [address], [place] [address] 17 May, 2014 [facility] [address] [id number] [address] [place] [address], [place] [address] 16 May, 2014 [facility] [address] [id number] [address] [place] [address], [place] [address] 16 May, 2014 [facility] [address] [id number] [address] [place] [address], [place] [address] 15 May, 2014 [facility] [address] [id number] [address] [place] [address], [place] [address] 15 May, 2014 [facility] [address] [id number] [address] [place] [address], [place] [address] May, [facility] [address] [id number] [address] [place] [address], [place] [address] May, [facility] [address] [id number] [address] [place] [address], [place] [address] May, [facility] [address] [id number] [address] [place] [address], [place] [address] May, [facility] [address] [id number] [address] [place] [address], [place] [address] May, [facility] [address] [id number] [address] [place] [address], [place] [address] May, [facility] [address] [id number] [address] [place] [address], [place] [address] May, [facility] [address] [id number] [address] [place] [address], [place] [address] May, [facility] [address] [id number] [address] [place] [address], [place] [address] May, [facility] [address] [id number] [address] [place] [address], [place] [address] May, [facility] [address] [id number] [address] [place] [address], [place] [address] May, [facility] [address] [id number] [address] [place] [address], [place] [address] May, [facility] [address] [id number] [address] [place] [address], [place] [address] May, [facility] [address] [id number] [address] [place] [address], [place] [address] May, [facility] [address] [id number] [address] [place] [address], [place] [address] May, [facility] [address] [id number] [address] [place] [address], [place] [address] May, [facility] [address] [id number] [address] [place] [address], [place] [address] Apr, [facility] [address] [id number] [address] [place] [address], [place] [address] Apr, [facility] [address] [id number] [address] [place] [address], [place] [address] Apr, [facility] [address] [id number] [address] [place] [address], [place] [address] Apr, [facility] [address] [id number] [address] [place] [address], [place] [address] Apr, [facility] [address] [id number] [address] [place] [address], [place] [address] Apr, [facility] [address] [id number] [address] [place] [address], [place] [address] Apr, [facility] [address] [id number] [address] [place] [address], [place] [address] Apr, [facility] [address] [id number] [address] [place] [address], [place] [address] Apr, [facility] [address] [id number] [address] [place] [address], [place] [address] Apr, [facility] [address] [id number] [address] [place] [address], [place] [address] Mar, [facility] [address] [id number] [address] [place] [address], [place] [address] Mar, [facility] [address] [id number] [address] [place] [address] [address] Mar, [facility] [address] [id number] [address] [place] [address], [place] [address] 31 Mar, 2013 [facility] [address] [id number] [address] [place] [address], [place] [address] Mar, [facility] [address] [id number] [address] [place] [address], [place] [address] 30 Mar, 2014 [facility] [address] [id number] [address] [place] [address], [place] [id number] Mar, [facility] [address] [id number] [address] [place] [address], [place] [id number] Mar, [facility] [address] [id number] [address] [place] [address], [place] [id number] Mar, [facility] [address] [id number] [address] [place] [address], [place] [id number] Mar, [facility] [address] [id number] [address] [place] [id number] Mar, [facility] [address] [id number] [address] [place] [id number] Mar, [facility] [address] [id number] [address] [place] [id number] Mar, [facility] [address] [id number] [address] [place] [id number] Mar, 2013 [facility] [address] [id number] [address] [place] [id number] Mar, 2013 [facility] [address] [id number] [address] [place] [id number] Mar, [facility] [address] [id number] [address] [place] [id number] Mar, [facility] [address] [id number] [address] [place] [id number] Mar, 2013 [facility] [address] [id number] [address] [place] [address], [place] [id number] 02 Mar, 2013 [facility] [address] [id number] [address] [place] [address], [place] [id number] 02 Mar, 2013 [facility] [address] [id number] [address] [place] [address], [place] [id number] 05 Sep, 2013 [facility] [address] [id number] [address] [place] [address], [place] [id number] 05 Sep, 2013 [facility] [address] [id number] [address] [place] [address], [place] [id number] 04 Sep, 2013 [facility] [address] [id number] [address] [place] [address], [place] [id number] 04 Sep, 2013 [facility] [address] [id number] [address] [place] [address], [place] [id number] 03 Feb, 2013 [facility] [address] [id number] [address] [place] [address], [place] [id number] 03 Feb, 2013 [facility] [address] [id number] [address] [place] [address], [place] [id number] 02 Feb, 2013 [facility] [address] [id number] [address] [place] [address], [place] [id number] Feb, 2013 [facility] [address] [id number] [address] [place] [address], [place] [id number] 02 Feb, 2013 [facility] [address] [id number] [address] [place] [address], [place] [id number] Feb, 2013 [facility] [address] [id number] [address] [place] [address], [place] [id number] Jan, [facility] [address] [id number] [address] [place] [address], [place] [id number] Jan, [facility] [address] [id number] [address] [place] [address], [place] [id number] Jan, [facility] [address] [id number] [address] [place] [address], [place] [id number] Jan, [facility] [address] [id number] [facility] [place] [id number] Jan, [facility] [address] [id number] [address] [place] [address], [place] [id number] Jan, [facility] [address] [id number] [address] [place] [address], [place] [id number] Jan, [facility] [address] [id number] [address] [place] [address], [place] [id number] Jan, [facility] [address] [id number] [address] [place] [address], [place] [id number] Jan, [facility] [address] [id number] [address] [place] [address], [place] [id number] Jan, [facility] [address] [id number] [address] [place] [address], [place] [id number] Jan, [facility] [address] [id number] [address] [place] [address], [place] [id number] Jan, [facility] [address] [id number] [address] [place] [address], [place] [id number] Dec, [facility] [address] [id number] [address] [place] [address], [place] [id number] Dec, [facility] [address] [id number] [address] [place] [address], [place] [id number] Dec, [facility] [address] [id number] [address] [place] [address], [place] [address] Dec, [facility] [address] [id number] [address] [place] [address], [place] [id number] Dec, [facility] [address] [id number] [address] [place] [address], [place] [address] Dec, [facility] [address] [id number] [address] [place] [address], [place] [address] Dec, [facility] [address] [id number] [address] [place] [address], [place] [address] Dec, [facility] [address] [id number] [facility] [place] [address] Dec, [facility] [address] [id number] [address] [place] [address], [place] [address] Dec, [facility] [address] [id number] [address] [place] [address], [place] [address] Dec, [facility] [address] [id number] [address] [place] [address], [place] [address] Dec, [facility] [address] [id number] [address] [place] [address], [place] [address] Nov, [facility] [address] [id number] [address] [place] [address], [place] [address] Nov, [facility] [address] [id number] [address] [place] [address], [place] [address] Nov, [facility] [address] [id number] [address] [place] [address], [place] [address] Nov, [facility] [address] [id number] [address] [place] [address], [place] [address] Nov, [facility] [address] [id number] [address] [place] [address], [place] [address] Nov, [facility] [address] [id number] [address] [place] [address], [place] [address] Nov, [facility] [address] [id number] [address] [place] [address], [place] [address] Nov, [facility] [address] [id number] [address] [place] [address], [place] [address] Nov, [facility] [address] [id number] [address] [place] [address], [place] [address] Nov, [facility] [address] [id number] [address] [place] [address], [place] [address] Nov, [facility] [address] [id number] [facility] [place] [address] Nov, [facility] [address] [id number] [address] [place] [address], [place] [address] Nov, [facility] [address] [id number] [address] [place] [address], [place] [address] Nov, [facility] [address] [id number] [address] [place] [address], [place] [id number] October, [facility] [address] [id number] [address] [place] [address], [place] [address] October, [facility] [address] [id number] [address] [place] [address], [place] [address] October, [facility] [address] [id number] [address] [place] [address], [place] [id number] October, [facility] [address] [id number] [address] [place] [address], [place] [address] October, [facility] [address] [id number] [address] [place] [address], [place] [id number] October, [facility] [address] [id number] [address] [place] [address], [place] [address] October, [facility] [address] [id number] [address] [place] [address], [place] [address] October, [facility] [address] [id number] [address] [place] [address], [place] [address] October, [facility] [address] [id number] [address] [place] [address], [place] [address] October, [facility] [address] [id number] [address] [place] [address], [place] [address] October, [facility] [address] [id number] [address] [place] [address], [place] [address] October, [facility] [address] [id number] [address] [place] [address], [place] [address] Sep, [facility] [address] [id number] [facility] [place] [address] Sep, [facility] [address] [id number] [address] [place] [address], [place] [address] Sep, [facility] [address] [id number] [facility] [place] [address] Sep, [facility] [address] [id number] [address] [place] [address], [place] [address] Sep, [facility] [address] [id number] [address] [place] [address], [place] [address] Sep, [facility] [address] [id number] [address] [place] [address], [place] [address] Aug, [facility] [address] [id number] [address] [place] [address], [place] [address] Aug, [facility] [address] [id number] [address] [place] [address], [place] [address] Aug, [facility] [address] [id number] [address] [place] [address], [place] [id number] Aug, [facility] [address] [id number] [address] [place] [address], [place] [address] Aug, [facility] [address] [id number] [address] [place] [address], [place] [address] Aug, [facility] [address] [id number] [address] [place] [address], [place] [address] Jul, [facility] [address] [id number] [address] [place] [address], [place] [address] Jul, [facility] [address] [id number] [address] [place] [address], [place] [address] Jul, [facility] [address] [id number] [address] [place] [address], [place] [address] Jul, [facility] [address] [id number] [address] [place] [address], [place] [address] 13 Jul, [address] [facility] [address] [id number] [address] [place] [address], [place] [address] Jul, [facility] [address] [id number] [address] [place] [address], [place] [address] Jul, [facility] [address] [id number] [address] [place] [address], [place] [address] Jul, [facility] [address] [id number] [address] [place] [address], [place] [address] Jul, [facility] [address] [id number] [address] [place] [address], [place] [address] Jul, [facility] [address] [id number] [address] [place] [address], [place] [address] Jun, [facility] [address] [id number] [address] [place] [address], [place] [address] Jun, [facility] [address] [id number] [address] [place] [address], [place] [address] Jun, [facility] [address] [id number] [address] [place] [address], [place] [address] Jun, [facility] [address] [id number] [address] [place] [address], [place] [address] Jun, [facility] [address] [id number] [address] [place] [address], [place] [address] Jun, [facility] [address] [id number] [address] [place] [address], [place] [address] Jun, [facility] [address] [id number] [address] [place] [address], [place] [address] Jun, [facility] [address] [id number] [address] [place] [address], [place] [address] May, [facility] [address] [id number] [address] [place] [address], [place] [address] May, [facility] [address] [id number] [address] [place] [address], [place] [address] May, [facility] [address] [id number] [address] [place] [address], [place] [address] May, [facility] [address] [id number] [address] [place] [address], [place] [address] May, [facility] [address] [id number] [address] [place] [address], [place] [address] May, [facility] [address] [id number] [address] [place] [address], [place] [address] May, [facility] [address] [id number] [address] [place] [address], [place] [address] May, [facility] [address] [id number] [address] [place] [address], [place] [address] Apr, [facility] [address] [id number] [address] [place] [id number] Apr, [facility] [address] [id number] [address] [place] [address], [place] [address] Apr, [facility] [address] [id number] [address] [place] [id number] Apr, [facility] [address] [id number] [address] [place] [id number] Apr, [facility] [address] [id number] [address] [place] [id number] Apr, [facility] [address] [id number] [address] [place] [address], [place] [address] Mar, [facility] [address] [id number] [address] [place] [id number] Mar, [facility] [address] [id number] [address] [place] [address], [place] [address] Mar, [facility] [address] [id number] [address] [place] [address], [place] [address] Mar, [facility] [address] [id number] [address] [place] [address], [place] [address] Mar, [facility] [address] [id number] [address] [place] [address], [place] [address] Mar, [facility] [address] [id number] [address] [place] [address], [place] [address] Mar, [facility] [address] [id number] [address] [place] [address], [place] [address] 30 Feb, 2012 [facility] [address] [id number] [address] [place] [address], [place] [id number] 30 Feb, 2013 [facility] [address] [id number] [address] [place] [address], [place] [address] 27 Feb, 2013 [facility] [address] [id number] [address] [place] [address], [place] [address] Feb, 2012 [facility] [address] [id number] [address] [place] [address], [place] [address] Feb, [facility] [address] [id number] [address] [place] [address], [place] [address] Feb, [facility] [address] [id number] [address] [place] [address], [place] [address] Jan, [facility] [address] [id number] [address] [place] [address], [place] [address] Jan, [facility] [address] [id number] [address] [place] [address], [place] [address] Jan, [facility] [address] [id number] [address] [place] [address], [place] [address] Jan, [facility] [address] [id number] [address] [place] [address], [place] [address] Jan, [facility] [address] [id number] [address] [place] [address], [place] [address] Jan, [facility] [address] [id number] [address] [place] [address], [place] [address] Jan, [facility] [address] [id number] [address] [place] [address], [place] [address] Jan, [facility] [address] [id number] [address] [place] [address], [place] [address] Jan, [facility] [address] [id number] [address] [place] [address], [place] [address] Dec, [facility] [address] [id number] [address] [place] [address], [place] [address] Dec, [facility] [address] [id number] [address] [place] [address], [place] [address] Dec, [facility] [address] [id number] [address] [place] [address], [place] [address] Dec, [facility] [address] [id number] [address] [place] [address], [place] [address] Dec, [facility] [address] [id number] [address] [place] [address], [place] [address] Dec, [facility] [address] [id number] [address] [place] [address], [place] [address] Dec, [facility] [address] [id number] [address] [place] [address], [place] [address] Dec, [facility] [address] [id number] [address] [place] [address], [place] [address] Dec, [facility] [address] [id number] [address] [place] [address], [place] [address] Dec, [facility] [address] [id number] [address] [place] [address], [place] [address] Dec, [facility] [address] [id number] [address] [place] [address], [place] [address] Dec, [facility] [address] [id number] [address] [place] [address], [place] [address] Dec, [facility] [address] [id number] [address] [place] [address], [place] [address] Nov, [facility] [address] [id number] [address] [place] [address], [place] [address] Nov, [facility] [address] [id number] [address] [place] [address], [place] [address] Nov, [facility] [address] [id number] [address] [place] [address], [place] [address] Nov, [facility] [address] [id number] [address] [place] [address], [place] [address] October, [facility] [address] [id number] [address] [place] [address], [place] [address] October, [facility] [address] [id number] [address] [place] [address], [place] [address] October, [facility] [address] [id number] [address] [place] [address], [place] [address] October, [facility] [address] [id number] [address] [place] [address], [place] [address] October, [facility] [address] [id number] [address] [place] [address], [place] [address] October, [facility] [address] [id number] [address] [place] [address], [place] [address] Sep, [facility] [address] [id number] [address] [place] [address], [place] [address] Sep, [facility] [address] [id number] [address] [place] [address], [place] [address] Sep, [facility] [address] [id number] [address] [place] [address], [place] [address] Sep, [facility] [address] [id number] [address] [place] [address], [place] [address] Sep, [facility] [address] [id number] [facility] [place] [address] 16 Sep, 2012 [facility] [address] [id number] [address] [place] [address], [place] [address] 12 Sep, 2012 [facility] [address] [id number] [address] [place] [address], [place] [address] Sep, [facility] [address] [id number] [address] [place] [address], [place] [address] Sep, [facility] [address] [id number] [address] [place] [address], [place] [address] Sep, [facility] [address] [id number] [address] [place] [address], [place] [address] Sep, [facility] [address] [id number] [address] [place] [address], [place] [address] Aug, [facility] [address] [id number] [address] [place] [address], [place] [id number] 25 Aug, 2012 [facility] [address] [id number] [address] [place] [address], [place] [address] 25 Aug, 2012 [facility] [address] [id number] [address] [place] [address], [place] [id number] 21 Aug, 2012 [facility] [address] [id number] [address] [place] [address], [place] [id number] 19 Aug, 2012 [facility] [address] [id number] [address] [place] [address], [place] [id number] 18 Aug, 2012 [facility] [address] [id number] [address] [place] [address], [place] [id number] 17 Aug, 2012 [facility] [address] [id number] [address] [place] [address], [place] [id number] 15 Aug, 2012 [facility] [address] [id number] [address] [place] [address], [place] [id number] 15 Aug, 2012 [facility] [address] [id number] [address] [place] [address], [place] [id number] Aug, [facility] [address] [id number] [address] [place] [address], [place] [id number] Aug, [facility] [address] [id number] [address] [place] [address], [place] [address] Aug, [facility] [address] [id number] [address] [place] [address], [place] [id number] Jul, [facility] [address] [id number] [address] [place] [address], [place] [id number] Jul, [facility] [address] [id number] [address] [place] [address], [place] [address] Jul, [facility] [address] [id number] [address] [place] [address], [place] [address] Jul, [facility] [address] [id number] [address] [place] [address], [place] [address] Jul, [facility] [address] [id number] [address] [place] [address], [place] [id number] Jul, [facility] [address] [id number] [address] [place] [address], [place] [id number] Jul, [facility] [address] [id number] [address] [place] [address], [place] [id number] Jul, [facility] [address] [id number] [address] [place] [address], [place] [id number] Jul, [facility] [address] [id number] [address] [place] [address], [place] [id number] Jul, [facility] [address] [id number] [address] [place] [address], [place] [id number] May, [facility] [address] [id number] [place] [id number] May, [facility] [address] [id number] [address] [place] [address], [place] [id number] May, [facility] [address] [id number] [address] [place] [id number] May, [facility] [address] [facility] [id number] [address] [place] [id number] May, [facility] [address] [facility] [id number] [address] [place] [id number] Apr, [facility] [address] [id number] [place] [id number] Apr, [facility] [address] [facility] [id number] [address] [place] [id number] Apr, [facility] [address] [facility] [id number] [address] [place] [id number] Mar, [facility] [address] [id number] [place] [id number] Mar, [facility] [address] [facility] [id number] [address] [place] [id number] Mar, [facility] [address] [id number] [place] [id number] Feb, [facility] [address] [facility] [id number] [address] [place] [id number] Feb, [facility] [address] [facility] [id number] [address] [place] [id number] Feb, [facility] [place] [address] [id number] [place] [id number] Feb, [facility] [address] [id number] [place] [id number] Feb, [facility] [address] [id number] [place] [id number] Jan, [facility] [address] [id number] [address] [place] [address], [place] [id number] Jan, [facility] [address] [id number] [place] [id number] Jan, [facility] [address] [id number] [place] [id number] Jan, [facility] [address] [id number] [place] [id number] Jan, [facility] [address] [facility] [id number] [address] [place] [address], [place] [id number] Jan, [facility] [address] [facility] [id number] [address] [place] [address], [place] [id number] Jan, [facility] [address] [facility] [id number] [address] [place] [address], [place] [id number] Aug, [facility] [address] [id number] [place] [id number] Aug, [facility] [address] [facility] [id number] [address] [place] [address], [place] [id number] Jul, [facility] [address] [facility] [id number] [address] [place] [address], [place] [id number] Jul, [facility] [address] [facility] [id number] [address] [place] [address], [place] [id number] Jul, [facility] [address] [id number] [place] [id number] Jul, [facility] [address] [facility] [id number] [address] [place] [address], [place] [id number] Jul, [facility] [address] [id number] [place] [id number] Jul, [facility] [address] [facility] [id number] [address] [place] [address], [place] [id number] Jul, [facility] [address] [id number] [place] [id number] Jul, [facility] [address] [id number] [place] [id number] Jul, [facility] [address] [id number] [place] [id number] Jul, [facility] [address] [facility] [id number] [address] [place] [address], [place] [id number] May, [facility] [address] [id number] [address] [place] [id number] May, [facility] [address] [id number] [address] [place] [id number] May, [facility] [address] [id number] [address] [place] [id number] Apr, [facility] [address] [id number] [address] [place] [id number] Jan, [facility] [address] [id number] [address] [place] [id number] Jan, [facility] [address] [id number] [address] [place] [id number] Dec, [facility] [address] [id number] [address] [place] [id number] Dec, [facility] [address] [id number] [address] [place] [id number] May, [facility] [address] [id number] [address] [place] [id number] Mar, [facility] [address] [id number] [address] [place] [id number] Mar, [facility] [address] [id number] [address] [place] [id number] Jan, IMMUNIZATIONS No Known Immunizations SOCIAL HISTORY [...]
--- OUTSIDE RECORDS SUMMARY | 2020-01-28 12:46 | XMS REPORT ---
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 Active 241976303 Problem History of venous thromboembolism V12.51 Active 207282866 Problem Cellulitis of unspecified part of limb L03.119 Active 270871168 Problem Gastroesophageal reflux disease without esophagitis K21.9 Active 098595922 Problem History of pulmonary embolism Z86.711 Active 291305949 Problem Pseudotumor cerebri G93.2 Active 76723644 Problem History of DVT (deep vein thrombosis) Z86.718 Active 652957630 ALLERGIES No Information ENCOUNTERS Encounter Location Date Diagnosis [place] [id number] [facility] [id number] [address] [place] [address] Apr, skilled nursing (current) use of 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 Z79.01 [facility] [place] [address] [facility] [id number] [address] [place] [address] Apr, skilled nursing 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.01 [facility] [place] [address] [facility] [id number] [address] [place] [address] Apr, Cellulitis of unspecified pa rt of limb L03.119 ; Allergic contact dermatitis due to adhesives L23.1 and Chronic pain syndrome G89.4 [facility] [place] [address] [facility] [id number] [address] [place] [address] Apr, [place] [address] [place] [id number] [address] [place] [address] Apr, buttermaker 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.01 ; Cellulitis of unspecified part of limb L03.119 ; Chronic pain syndrome G89.4 and Anxiety F41.9 [facility] [place] [address] [place] [id number] [address] [place] [address] 16 Apr, 2015 [facility] [place] [address] [place] [id number] [place] [address] Apr, [place] [address] [place] [id number] [place] [address] Mar, [place] [address] [address] Mar, [place] [address] [address] Mar, Sore throat J02.9 ; Gastroes ophageal reflux disease without esophagitis K21.9 ; Pseudotumor cerebri G93.2 ; Chronic pain syndrome G89.4 ; Choriocarcinoma C58 ; History of pulmonary embolism Z86.711 ; History of DVT (deep vein thrombosis) Z86.718 ; Anxiety F41.9 and Tachycardia R00.0 [place] [address] [address] Feb, Anxiety 300.00 and Chronic p ain 338.29 [place] [address] [place] [id number] [address] [place] [address] Feb, [place] [address] [place] [id number] [address] [place] [address] Feb, [place] [address] [address] Jan, buttermaker current use of ant icoagulant therapy V58.61 and Dysuria 788.1 [place] [address] [place] [id number] [place] [address] Jan, Dysuria 788.1 [facility] [place] [address] [place] [id number] [address] [place] [address] Jan, Anxiety 300.00 and Chronic p ain 338.29 [facility] [place] [address] [place] [id number] [place] [address] Jan, [facility] [place] [address] [address] Jan, [facility] [place] [address] [address] Jan, [place] [address] [address] Dec, Weakness 780.79 [place] [address] [address] Dec, skilled nursing current use of ant icoagulant therapy V58.61 [place] [address] [address] Dec, Palpitations 785.1 ; Tremor 781.0 ; Weakness 780.79 ; skilled nursing current use of anticoagulant therapy V58.61 and Yeast vaginitis 112.1 [place] [address] [place] [id number] [address] [place] [address] Dec, [place] [address] [address] Dec, Cervicalgia 723.1 ; Tachycar yoseph 785.0 ; Pseudotumor cerebri 348.2 and History of venous thromboembolism V12.51 [place] [address] [address] Nov, [place] [address] [address] Nov, [place] [address] [address] Nov, Tachycardia 785.0 ; Pseudotu mor cerebri 348.2 ; Anxiety 300.00 and History of venous thromboembolism V12.51 [facility] [place] [address] [id number] [address] [place] [address] Nov, [facility] [place] [address] [id number] [address] [place] [address] 18 Nov, 2014 [facility] [place] [address] [id number] [address] [place] [address] Nov, [facility] [place] [address] [id number] [address] [place] [address] Nov, [facility] [place] [address] [facility] [id number] [address] [place] [address] Nov, [facility] [place] [address] [facility] [id number] [address] [place] [address] Nov, [facility] [place] [address] [facility] [id number] [address] [place] [address] Nov, [facility] [place] [address] [facility] [id number] [address] [place] [address] October, [facility] [place] [address] [facility] [id number] [address] [place] [address] October, [facility] [place] [address] [place] [id number] [address] [place] [address] October, Pain in thoracic spine 724.1 and Tachycardia 785.0 [facility] [place] [address] [id number] [address] [place] [address] October, [facility] [place] [address] [id number] [address] [place] [address] October, [facility] [place] [address] [facility] [id number] [address] [place] [address] 14 Sep, 2014 [facility] [place] [address] [facility] [id number] [address] [place] [address] Sep, [facility] [address] [id number] [facility] [place] [address] Aug, [facility] [address] [id number] [address] [place] [address], [place] [address] Aug, [facility] [address] [id number] [address] [place] [address], [place] [address] Aug, [facility] [address] [id number] [address] [place] [address], [place] [address] Aug, [facility] [address] [id number] [address] [place] [address], [place] [address] Aug, [facility] [address] [id number] [address] [place] [address], [place] [address] Aug, [facility] [address] [id number] [address] [place] [address], [place] [address] Aug, [facility] [address] [id number] [address] [place] [address], [place] [address] Aug, [facility] [address] [id number] [address] [place] [address], [place] [address] Aug, [facility] [address] [id number] [address] [place] [address], [place] [address] Aug, [facility] [address] [id number] [address] [place] [address], [place] [address] Aug, [facility] [address] [id number] [address] [place] [address], [place] [address] Aug, 2014 [facility] [address] [id number] [address] [place] [address], [place] [address] Jul, [facility] [address] [id number] [address] [place] [address], [place] [address] Jul, [facility] [address] [id number] [address] [place] [address], [place] [address] Jul, [facility] [address] [id number] [address] [place] [address], [place] [address] Jul, [facility] [address] [id number] [address] [place] [address], [place] [address] 23 Jul, 2014 [facility] [address] [id number] [address] [place] [address], [place] [address] 23 Jul, 2014 [facility] [address] [id number] [address] [place] [address], [place] [address] 23 Jul, 2014 [facility] [address] [id number] [address] [place] [address], [place] [address] 23 Jul, 2014 [facility] [address] [id number] [address] [place] [address], [place] [address] 20 Jul, 2014 [facility] [address] [id number] [address] [place] [address], [place] [address] 20 Jul, 2014 [facility] [address] [id number] [address] [place] [address], [place] [address] 19 Jul, 2014 [facility] [address] [id number] [address] [place] [address], [place] [address] 19 Jul, 2014 [facility] [address] [id number] [address] [place] [address], [place] [address] 17 Jul, 2014 [facility] [address] [id number] [address] [place] [address], [place] [address] 17 Jul, 2014 [facility] [address] [id number] [address] [place] [address], [place] [address] 16 Jul, 2014 [facility] [address] [id number] [address] [place] [address], [place] [address] 16 Jul, 2014 [facility] [address] [id number] [address] [place] [address], [place] [address] 16 Jul, 2014 [facility] [address] [id number] [address] [place] [address] 16 Jul, 2014 [facility] [address] [id number] [address] [place] [address] 13 Jul, 2014 [facility] [address] [id number] [address] [place] [address], [place] [address] Jul, [facility] [address] [id number] [address] [place] [address], [place] [address] Jul, [facility] [address] [id number] [address] [place] [address], [place] [address] Jul, 2014 [facility] [address] [id number] [address] [place] [address], [place] [address] Jul, 2014 [facility] [address] [id number] [address] [place] [address], [place] [address] Jul, [facility] [address] [id number] [address] [place] [address], [place] [address] Jul, [facility] [address] [id number] [address] [place] [address], [place] [address] Jul, [facility] [address] [id number] [address] [place] [address], [place] [address] Jul, [facility] [address] [id number] [address] [place] [address], [place] [address] Jul, [facility] [address] [id number] [address] [place] [address], [place] [address] Jul, [facility] [address] [id number] [address] [place] [address], [place] [address] Jul, [facility] [address] [id number] [address] [place] [address], [place] [address] Jun, [facility] [address] [id number] [address] [place] [address], [place] [address] Jun, [facility] [address] [id number] [address] [place] [address], [place] [address] Jun, [facility] [address] [id number] [address] [place] [address], [place] [address] Jun, [facility] [address] [id number] [address] [place] [address], [place] [address] Jun, [facility] [address] [id number] [address] [place] [address], [place] [address] Jun, [facility] [address] [id number] [address] [place] [address], [place] [address] Jun, [facility] [address] [id number] [address] [place] [address], [place] [address] Jun, [facility] [address] [id number] [address] [place] [address], [place] [address] Jun, [facility] [address] [id number] [address] [place] [address], [place] [address] Jun, [facility] [address] [id number] [address] [place] [address], [place] [address] Jun, [facility] [address] [id number] [address] [place] [address], [place] [address] Jun, [facility] [address] [id number] [address] [place] [address], [place] [address] Jun, [facility] [address] [id number] [address] [place] [address], [place] [address] Jun, [facility] [address] [id number] [address] [place] [address], [place] [address] Jun, [facility] [address] [id number] [address] [place] [address], [place] [address] Jun, [facility] [address] [id number] [address] [place] [address], [place] [address] Jun, [facility] [address] [id number] [address] [place] [address], [place] [address] Jun, [facility] [address] [id number] [address] [place] [address], [place] [address] Jun, [facility] [address] [id number] [address] [place] [address], [place] [address] Jun, [facility] [address] [id number] [address] [place] [address], [place] [address] May, [facility] [address] [id number] [address] [place] [address], [place] [address] May, [facility] [address] [id number] [address] [place] [address], [place] [address] May, [facility] [address] [id number] [address] [place] [address], [place] [address] May, [facility] [address] [id number] [address] [place] [address], [place] [address] May, [facility] [address] [id number] [address] [place] [address], [place] [address] May, [facility] [address] [id number] [address] [place] [address], [place] [address] May, [facility] [address] [id number] [address] [place] [address], [place] [address] May, [facility] [address] [id number] [address] [place] [address], [place] [address] May, [facility] [address] [id number] [address] [place] [address], [place] [address] May, [facility] [address] [id number] [address] [place] [address], [place] [address] May, [facility] [address] [id number] [address] [place] [address], [place] [address] 18 May, 2014 [facility] [address] [id number] [address] [place] [address], [place] [address] 18 May, 2014 [facility] [address] [id number] [address] [place] [address], [place] [address] 17 May, 2014 [facility] [address] [id number] [address] [place] [address], [place] [address] 16 May, 2014 [facility] [address] [id number] [address] [place] [address], [place] [address] 16 May, 2014 [facility] [address] [id number] [address] [place] [address], [place] [address] 15 May, 2014 [facility] [address] [id number] [address] [place] [address], [place] [address] 15 May, 2014 [facility] [address] [id number] [address] [place] [address], [place] [address] May, [facility] [address] [id number] [address] [place] [address], [place] [address] May, [facility] [address] [id number] [address] [place] [address], [place] [address] May, [facility] [address] [id number] [address] [place] [address], [place] [address] May, [facility] [address] [id number] [address] [place] [address], [place] [address] May, [facility] [address] [id number] [address] [place] [address], [place] [address] May, [facility] [address] [id number] [address] [place] [address], [place] [address] May, [facility] [address] [id number] [address] [place] [address], [place] [address] May, [facility] [address] [id number] [address] [place] [address], [place] [address] May, [facility] [address] [id number] [address] [place] [address], [place] [address] May, [facility] [address] [id number] [address] [place] [address], [place] [address] May, [facility] [address] [id number] [address] [place] [address], [place] [address] May, [facility] [address] [id number] [address] [place] [address], [place] [address] May, [facility] [address] [id number] [address] [place] [address], [place] [address] May, [facility] [address] [id number] [address] [place] [address], [place] [address] May, [facility] [address] [id number] [address] [place] [address], [place] [address] May, [facility] [address] [id number] [address] [place] [address], [place] [address] Apr, [facility] [address] [id number] [address] [place] [address], [place] [address] Apr, [facility] [address] [id number] [address] [place] [address], [place] [address] Apr, [facility] [address] [id number] [address] [place] [address], [place] [address] Apr, [facility] [address] [id number] [address] [place] [address], [place] [address] Apr, [facility] [address] [id number] [address] [place] [address], [place] [address] Apr, [facility] [address] [id number] [address] [place] [address], [place] [address] Apr, [facility] [address] [id number] [address] [place] [address], [place] [address] Apr, [facility] [address] [id number] [address] [place] [address], [place] [address] Apr, [facility] [address] [id number] [address] [place] [address], [place] [address] Apr, [facility] [address] [id number] [address] [place] [address], [place] [address] Mar, [facility] [address] [id number] [address] [place] [address], [place] [address] Mar, [facility] [address] [id number] [address] [place] [address] [address] Mar, [facility] [address] [id number] [address] [place] [address], [place] [id number] 31 Mar, 2013 [facility] [address] [id number] [address] [place] [address], [place] [id number] Mar, [facility] [address] [id number] [address] [place] [address], [place] [address] 30 Mar, 2014 [facility] [address] [id number] [address] [place] [address], [place] [id number] Mar, [facility] [address] [id number] [address] [place] [address], [place] [address] Mar, [facility] [address] [id number] [address] [place] [address], [place] [address] Mar, [facility] [address] [id number] [address] [place] [address], [place] [address] Mar, [facility] [address] [id number] [address] [place] [id number] Mar, [facility] [address] [id number] [address] [place] [id number] Mar, [facility] [address] [id number] [address] [place] [id number] Mar, [facility] [address] [id number] [address] [place] [id number] Mar, 2013 [facility] [address] [id number] [address] [place] [id number] Mar, 2013 [facility] [address] [id number] [address] [place] [address] Mar, [facility] [address] [id number] [address] [place] [id number] Mar, [facility] [address] [id number] [address] [place] [id number] Mar, 2013 [facility] [address] [id number] [address] [place] [address], [place] [address] 02 Mar, 2013 [facility] [address] [id number] [address] [place] [address], [place] [address] 02 Mar, 2013 [facility] [address] [id number] [address] [place] [address], [place] [id number] 05 Sep, 2013 [facility] [address] [id number] [address] [place] [address], [place] [address] 05 Sep, 2013 [facility] [address] [id number] [address] [place] [address], [place] [id number] 04 Sep, 2013 [facility] [address] [id number] [address] [place] [address], [place] [id number] 04 Sep, 2013 [facility] [address] [id number] [address] [place] [address], [place] [id number] 03 Feb, 2013 [facility] [address] [id number] [address] [place] [address], [place] [id number] 03 Feb, 2013 [facility] [address] [id number] [address] [place] [address], [place] [id number] 02 Feb, 2013 [facility] [address] [id number] [address] [place] [address], [place] [id number] Feb, 2013 [facility] [address] [id number] [address] [place] [address], [place] [id number] 02 Feb, 2013 [facility] [address] [id number] [address] [place] [address], [place] [id number] Feb, 2013 [facility] [address] [id number] [address] [place] [address], [place] [address] Jan, [facility] [address] [id number] [address] [place] [address], [place] [id number] Jan, [facility] [address] [id number] [address] [place] [address], [place] [id number] Jan, [facility] [address] [id number] [address] [place] [address], [place] [address] Jan, [facility] [address] [id number] [facility] [place] [address] Jan, [facility] [address] [id number] [address] [place] [address], [place] [address] Jan, [facility] [address] [id number] [address] [place] [address], [place] [address] Jan, [facility] [address] [id number] [address] [place] [address], [place] [id number] Jan, [facility] [address] [id number] [address] [place] [address], [place] [address] Jan, [facility] [address] [id number] [address] [place] [address], [place] [address] Jan, [facility] [address] [id number] [address] [place] [address], [place] [id number] Jan, [facility] [address] [id number] [address] [place] [address], [place] [address] Jan, [facility] [address] [id number] [address] [place] [address], [place] [id number] Dec, [facility] [address] [id number] [address] [place] [address], [place] [id number] Dec, [facility] [address] [id number] [place] [address], [place] [address] Dec, [facility] [address] [id number] [address] [place] [address], [place] [address] Dec, [facility] [address] [id number] [address] [place] [address], [place] [address] Dec, [facility] [address] [id number] [address] [place] [address], [place] [address] Dec, [facility] [address] [id number] [address] [place] [address], [place] [address] Dec, [facility] [address] [id number] [address] [place] [address], [place] [address] Dec, [facility] [address] [id number] [facility] [place] [address] Dec, [facility] [address] [id number] [address] [place] [address], [place] [address] Dec, [facility] [address] [id number] [address] [place] [address], [place] [address] Dec, [facility] [address] [id number] [address] [place] [address], [place] [address] Dec, [facility] [address] [id number] [address] [place] [address], [place] [address] Nov, [facility] [address] [id number] [address] [place] [address], [place] [address] Nov, [facility] [address] [id number] [address] [place] [address], [place] [address] Nov, [facility] [address] [id number] [address] [place] [address], [place] [address] Nov, [facility] [address] [id number] [address] [place] [address], [place] [address] Nov, [facility] [address] [id number] [address] [place] [address], [place] [address] Nov, [facility] [address] [id number] [address] [place] [address], [place] [address] Nov, [facility] [address] [id number] [address] [place] [address], [place] [address] Nov, [facility] [address] [id number] [address] [place] [address], [place] [address] Nov, [facility] [address] [id number] [address] [place] [address], [place] [address] Nov, [facility] [address] [id number] [address] [place] [address], [place] [address] Nov, [facility] [address] [id number] [facility] [place] [address] Nov, [facility] [address] [id number] [address] [place] [address], [place] [address] Nov, [facility] [address] [id number] [address] [place] [address], [place] [address] Nov, [facility] [address] [id number] [address] [place] [address], [place] [address] October, [facility] [address] [id number] [address] [place] [address], [place] [address] October, [facility] [address] [id number] [address] [place] [address], [place] [address] October, [facility] [address] [id number] [address] [place] [address], [place] [address] October, [facility] [address] [id number] [address] [place] [address], [place] [address] October, [facility] [address] [id number] [address] [place] [address], [place] [address] October, [facility] [address] [id number] [address] [place] [address], [place] [address] October, [facility] [address] [id number] [address] [place] [address], [place] [address] October, [facility] [address] [id number] [address] [place] [address], [place] [address] October, [facility] [address] [id number] [address] [place] [address], [place] [address] October, [facility] [address] [id number] [address] [place] [address], [place] [address] October, [facility] [address] [id number] [address] [place] [address], [place] [address] October, [facility] [address] [id number] [address] [place] [address], [place] [address] Sep, [facility] [address] [id number] [facility] [place] [address] Sep, [facility] [address] [id number] [address] [place] [address], [place] [address] Sep, [facility] [address] [id number] [facility] [place] [address] Sep, [facility] [address] [id number] [address] [place] [address], [place] [address] Sep, [facility] [address] [id number] [address] [place] [address], [place] [address] Sep, [facility] [address] [id number] [address] [place] [address], [place] [address] Aug, [facility] [address] [id number] [address] [place] [address], [place] [address] Aug, [facility] [address] [id number] [address] [place] [address], [place] [address] Aug, [facility] [address] [id number] [address] [place] [address], [place] [address] Aug, [facility] [address] [id number] [address] [place] [address], [place] [address] Aug, [facility] [address] [id number] [address] [place] [address], [place] [address] Aug, [facility] [address] [id number] [address] [place] [address], [place] [address] Jul, [facility] [address] [id number] [address] [place] [address], [place] [address] Jul, [facility] [address] [id number] [address] [place] [address], [place] [address] Jul, [facility] [address] [id number] [address] [place] [address], [place] [address] Jul, [facility] [address] [id number] [address] [place] [address], [place] [address] 13 Jul, 2013 [facility] [address] [id number] [address] [place] [address], [place] [address] Jul, [facility] [address] [id number] [address] [place] [address], [place] [address] Jul, [facility] [address] [id number] [address] [place] [address], [place] [address] Jul, [facility] [address] [id number] [address] [place] [address], [place] [address] Jul, [facility] [address] [id number] [address] [place] [address], [place] [address] Jul, [facility] [address] [id number] [address] [place] [address], [place] [address] Jun, [facility] [address] [id number] [address] [place] [address], [place] [address] Jun, [facility] [address] [id number] [address] [place] [address], [place] [address] Jun, [facility] [address] [id number] [address] [place] [address], [place] [address] Jun, [facility] [address] [id number] [address] [place] [address], [place] [address] Jun, [facility] [address] [id number] [address] [place] [address], [place] [address] Jun, [facility] [address] [id number] [address] [place] [address], [place] [address] Jun, [facility] [address] [id number] [address] [place] [address], [place] [address] Jun, [facility] [address] [id number] [address] [place] [address], [place] [address] May, [facility] [address] [id number] [address] [place] [address], [place] [address] May, [facility] [address] [id number] [address] [place] [address], [place] [address] May, [facility] [address] [id number] [address] [place] [address], [place] [address] May, [facility] [address] [id number] [address] [place] [address], [place] [address] May, [facility] [address] [id number] [address] [place] [address], [place] [address] May, [facility] [address] [id number] [address] [place] [address], [place] [address] May, [facility] [address] [id number] [address] [place] [address], [place] [address] May, [facility] [address] [id number] [address] [place] [address], [place] [address] Apr, [facility] [address] [id number] [address] [place] [address] Apr, [facility] [address] [id number] [address] [place] [address], [place] [address] Apr, [facility] [address] [id number] [address] [place] [address] Apr, [facility] [address] [id number] [address] [place] [address] Apr, [facility] [address] [id number] [address] [place] [address] Apr, [facility] [address] [id number] [address] [place] [address], [place] [address] Mar, [facility] [address] [id number] [address] [place] [id number] Mar, [facility] [address] [id number] [address] [place] [address], [place] [address] Mar, [facility] [address] [id number] [address] [place] [address], [place] [address] Mar, [facility] [address] [id number] [address] [place] [address], [place] [address] Mar, [facility] [address] [id number] [address] [place] [address], [place] [address] Mar, [facility] [address] [id number] [address] [place] [address], [place] [address] Mar, [facility] [address] [id number] [address] [place] [address], [place] [address] 30 Feb, 2012 [facility] [address] [id number] [address] [place] [address], [place] [address] 30 Feb, 2013 [facility] [address] [id number] [address] [place] [address], [place] [address] 27 Feb, 2013 [facility] [address] [id number] [address] [place] [address], [place] [address] Feb, 2012 [facility] [address] [id number] [address] [place] [address], [place] [address] Feb, [facility] [address] [id number] [address] [place] [address], [place] [address] Feb, [facility] [address] [id number] [address] [place] [address], [place] [address] Jan, [facility] [address] [id number] [address] [place] [address], [place] [address] Jan, [facility] [address] [id number] [address] [place] [address], [place] [address] Jan, [facility] [address] [id number] [address] [place] [address], [place] [address] Jan, [facility] [address] [id number] [address] [place] [address], [place] [address] Jan, [facility] [address] [id number] [address] [place] [address], [place] [address] Jan, [facility] [address] [id number] [address] [place] [address], [place] [address] Jan, [facility] [address] [id number] [address] [place] [address], [place] [address] Jan, [facility] [address] [id number] [address] [place] [address], [place] [address] Jan, [facility] [address] [id number] [address] [place] [address], [place] [address] Dec, [facility] [address] [id number] [address] [place] [address], [place] [address] Dec, [facility] [address] [id number] [address] [place] [address], [place] [address] Dec, [facility] [address] [id number] [address] [place] [address], [place] [address] Dec, [facility] [address] [id number] [address] [place] [address], [place] [address] Dec, [facility] [address] [id number] [address] [place] [address], [place] [address] Dec, [facility] [address] [id number] [address] [place] [address], [place] [address] Dec, [facility] [address] [id number] [address] [place] [address], [place] [address] Dec, [facility] [address] [id number] [address] [place] [address], [place] [address] Dec, [facility] [address] [id number] [address] [place] [address], [place] [address] Dec, [facility] [address] [id number] [address] [place] [address], [place] [address] Dec, [facility] [address] [id number] [address] [place] [address], [place] [address] Dec, [facility] [address] [id number] [address] [place] [address], [place] [address] Dec, [facility] [address] [id number] [address] [place] [address], [place] [address] Nov, [facility] [address] [id number] [address] [place] [address], [place] [address] Nov, [facility] [address] [id number] [address] [place] [address], [place] [address] Nov, [facility] [address] [id number] [address] [place] [address], [place] [address] Nov, [facility] [address] [id number] [address] [place] [address], [place] [address] October, [facility] [address] [id number] [address] [place] [address], [place] [address] October, [facility] [address] [id number] [address] [place] [address], [place] [address] October, [facility] [address] [id number] [address] [place] [address], [place] [address] October, [facility] [address] [id number] [address] [place] [address], [place] [address] October, [facility] [address] [id number] [address] [place] [address], [place] [address] October, [facility] [address] [id number] [address] [place] [address], [place] [address] Sep, [facility] [address] [id number] [address] [place] [address], [place] [address] Sep, [facility] [address] [id number] [address] [place] [address], [place] [address] Sep, [facility] [address] [id number] [address] [place] [address], [place] [address] Sep, [facility] [address] [id number] [address] [place] [address], [place] [address] Sep, [facility] [address] [id number] [facility] [place] [address] 16 Sep, 2012 [facility] [address] [id number] [address] [place] [address], [place] [address] 12 Sep, 2012 [facility] [address] [id number] [address] [place] [address], [place] [address] Sep, [facility] [address] [id number] [address] [place] [address], [place] [address] Sep, [facility] [address] [id number] [address] [place] [address], [place] [address] Sep, [facility] [address] [id number] [address] [place] [address], [place] [address] Sep, [facility] [address] [id number] [address] [place] [address], [place] [address] Aug, [facility] [address] [id number] [address] [place] [address], [place] [address] 25 Aug, 2012 [facility] [address] [id number] [address] [place] [address], [place] [address] 25 Aug, 2012 [facility] [address] [id number] [address] [place] [address], [place] [address] 21 Aug, 2012 [facility] [address] [id number] [address] [place] [address], [place] [address] 19 Aug, 2012 [facility] [address] [id number] [address] [place] [address], [place] [address] 18 Aug, 2012 [facility] [address] [id number] [address] [place] [address], [place] [address] 17 Aug, 2012 [facility] [address] [id number] [address] [place] [address], [place] [address] 15 Aug, 2012 [facility] [address] [id number] [address] [place] [address], [place] [address] 15 Aug, 2012 [facility] [address] [id number] [address] [place] [address], [place] [address] Aug, [facility] [address] [id number] [address] [place] [address], [place] [address] Aug, [facility] [address] [id number] [address] [place] [address], [place] [address] Aug, [facility] [address] [id number] [address] [place] [address], [place] [address] Jul, [facility] [address] [id number] [address] [place] [address], [place] [address] Jul, [facility] [address] [id number] [address] [place] [address], [place] [address] Jul, [facility] [address] [id number] [address] [place] [address], [place] [address] Jul, [facility] [address] [id number] [address] [place] [address], [place] [address] Jul, [facility] [address] [id number] [address] [place] [address], [place] [address] Jul, [facility] [address] [id number] [address] [place] [address], [place] [address] Jul, [facility] [address] [id number] [address] [place] [address], [place] [id number] Jul, [facility] [address] [id number] [address] [place] [address], [place] [address] Jul, [facility] [address] [id number] [address] [place] [address], [place] [id number] Jul, [facility] [address] [id number] [address] [place] [address], [place] [address] May, [facility] [address] [id number] [place] [id number] May, [facility] [address] [id number] [address] [place] [address], [place] [address] May, [facility] [address] [id number] [address] [place] [id number] May, [facility] [address] [facility] [id number] [address] [place] [id number] May, [facility] [address] [facility] [id number] [address] [place] [id number] Apr, [facility] [place] [address] [id number] [place] [id number] Apr, [facility] [address] [facility] [id number] [address] [place] [id number] Apr, [facility] [address] [facility] [id number] [address] [place] [id number] Mar, [facility] [place] [address] [id number] [place] [id number] Mar, [facility] [address] [facility] [id number] [address] [place] [id number] Mar, [facility] [address] [id number] [place] [id number] Feb, [facility] [address] [facility] [id number] [address] [place] [id number] Feb, [facility] [address] [facility] [id number] [address] [place] [id number] Feb, [facility] [place] [address] [id number] [place] [id number] Feb, [facility] [address] [id number] [place] [id number] Feb, [facility] [address] [id number] [place] [id number] Jan, [facility] [address] [id number] [address] [place] [address], [place] [address] Jan, [facility] [place] [address] [id number] [place] [id number] Jan, [facility] [place] [address] [id number] [place] [id number] Jan, [facility] [place] [address] [id number] [place] [id number] Jan, [facility] [address] [facility] [id number] [address] [place] [address], [place] [id number] Jan, [facility] [address] [facility] [id number] [address] [place] [address], [place] [address] Jan, [facility] [address] [facility] [id number] [address] [place] [address], [place] [id number] Aug, [facility] [place] [address] [id number] [place] [id number] Aug, [facility] [address] [facility] [id number] [address] [place] [address], [place] [id number] Jul, [facility] [address] [facility] [id number] [address] [place] [address], [place] [id number] Jul, [facility] [address] [facility] [id number] [address] [place] [address], [place] [address] Jul, [facility] [place] [address] [id number] [place] [id number] Jul, [facility] [address] [facility] [id number] [address] [place] [address], [place] [id number] Jul, [facility] [place] [address] [id number] [place] [id number] Jul, [facility] [address] [facility] [id number] [address] [place] [address], [place] [address] Jul, [facility] [place] [address] [id number] [place] [id number] Jul, [facility] [place] [address] [id number] [place] [id number] Jul, [facility] [place] [address] [id number] [place] [id number] Jul, [facility] [address] [facility] [id number] [address] [place] [address], [place] [id number] May, [facility] [address] [id number] [address] [place] [id number] May, [facility] [place] [address] [id number] [address] [place] [id number] May, [facility] [place] [address] [id number] [address] [place] [id number] Apr, [facility] [place] [address] [id number] [address] [place] [id number] Jan, [facility] [place] [address] [id number] [address] [place] [id number] Jan, [facility] [place] [address] [id number] [address] [place] [id number] Dec, [facility] [place] [address] [id number] [address] [place] [id number] Dec, [facility] [place] [address] [id number] [address] [place] [id number] May, [facility] [place] [address] [id number] [address] [place] [id number] Mar, [facility] [place] [address] [id number] [address] [place] [id number] Mar, [facility] [place] [address] [id number] [address] [place] [id number] Jan, IMMUNIZATIONS No Known Immunizations SOCIAL HISTORY [...]
--- OUTSIDE RECORDS SUMMARY | 2020-01-28 12:46 | XMS REPORT ---
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 Active 511236324 Problem History of venous thromboembolism V12.51 Active 619675707 Problem Cellulitis of unspecified part of limb L03.119 Active 616257608 Problem Gastroesophageal reflux disease without esophagitis K21.9 Active 858283529 Problem History of pulmonary embolism Z86.711 Active 411296870 Problem Pseudotumor cerebri G93.2 Active 87090270 Problem History of DVT (deep vein thrombosis) Z86.718 Active 101826143 ALLERGIES No Information ENCOUNTERS Encounter Location Date Diagnosis [place] [id number] [facility] [id number] [address] [place] [address] Apr, [facility] (current) use of 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 Z79.01 [facility] [address] [facility] [id number] [address] [place] [address] Apr, [facility] 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.01 [facility] [address] [facility] [id number] [address] [place] [address] Apr, Cellulitis of unspecified pa rt of limb L03.119 ; Allergic contact dermatitis due to adhesives L23.1 and Chronic pain syndrome G89.4 [facility] [address] [facility] [id number] [address] [place] [address] Apr, [place] [address] [place] [id number] [address] [place] [address] Apr, 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 ; Cellulitis of unspecified part of limb L03.119 ; Chronic pain syndrome G89.4 and Anxiety F41.9 [facility] [address] [place] [id number] [address] [place] [address] 16 Apr, 2015 [facility] [address] [place] [id number] [place] [address] Apr, [place] [address] [place] [id number] [place] [address] Mar, [place] [address] [address] Mar, [place] [address] [address] Mar, Sore throat J02.9 ; Gastroes ophageal reflux disease without esophagitis K21.9 ; Pseudotumor cerebri G93.2 ; Chronic pain syndrome G89.4 ; Choriocarcinoma C58 ; History of pulmonary embolism Z86.711 ; History of DVT (deep vein thrombosis) Z86.718 ; Anxiety F41.9 and Tachycardia R00.0 [place] [address] [address] Feb, Anxiety 300.00 and Chronic p ain 338.29 [place] [address] [place] [id number] [address] [place] [address] Feb, [place] [address] [place] [id number] [address] [place] [address] Feb, [place] [address] [address] Jan, 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.61 and Dysuria 788.1 [place] [address] [place] [id number] [place] [address] Jan, Dysuria 788.1 [facility] [address] [place] [id number] [address] [place] [address] Jan, Anxiety 300.00 and Chronic p ain 338.29 [facility] [address] [place] [id number] [place] [address] Jan, [facility] [address] [address] Jan, [facility] [address] [address] Jan, [place] [address] [address] Dec, Weakness 780.79 [place] [address] [address] Dec, [facility] current use of ant icoagulant therapy V58.61 [place] [address] [address] Dec, Palpitations 785.1 ; Tremor 781.0 ; Weakness 780.79 ; [facility] current use of anticoagulant therapy V58.61 and Yeast vaginitis 112.1 [place] [address] [place] [id number] [address] [place] [address] Dec, [place] [address] [address] Dec, Cervicalgia 723.1 ; Tachycar yoseph 785.0 ; Pseudotumor cerebri 348.2 and History of venous thromboembolism V12.51 [place] [address] [address] Nov, [place] [address] [address] Nov, [place] [address] [address] Nov, Tachycardia 785.0 ; Pseudotu mor cerebri 348.2 ; Anxiety 300.00 and History of venous thromboembolism V12.51 [facility] [address] [id number] [address] [place] [address] Nov, [facility] [address] [id number] [address] [place] [address] 18 Nov, 2014 [facility] [address] [id number] [address] [place] [address] Nov, [facility] [address] [id number] [address] [place] [address] Nov, [facility] [address] [facility] [id number] [address] [place] [address] Nov, [facility] [address] [facility] [id number] [address] [place] [address] Nov, [facility] [address] [facility] [id number] [address] [place] [address] Nov, [facility] [address] [facility] [id number] [address] [place] [phone] October, [facility] [address] [facility] [id number] [address] [place] [address] October, [facility] [address] [place] [id number] [address] [place] [address] October, Pain in thoracic spine 724.1 and Tachycardia 785.0 [facility] [address] [id number] [address] [place] [address] October, [facility] [address] [id number] [address] [place] [address] October, [facility] [address] [facility] [id number] [address] [place] [address] 14 Sep, 2014 [facility] [address] [facility] [id number] [address] [place] [address] Sep, [facility] [address] [id number] [facility] [place] [address] Aug, [facility] [address] [id number] [address] [place] [address], [place] [address] Aug, [facility] [address] [id number] [address] [place] [address], [place] [address] Aug, [facility] [address] [id number] [address] [place] [address], [place] [address] Aug, [facility] [address] [id number] [address] [place] [address], [place] [address] Aug, [facility] [address] [id number] [address] [place] [address], [place] [address] Aug, [facility] [address] [id number] [address] [place] [address], [place] [address] Aug, [facility] [address] [id number] [address] [place] [address], [place] [address] Aug, [facility] [address] [id number] [address] [place] [address], [place] [address] Aug, [facility] [address] [id number] [address] [place] [address], [place] [address] Aug, [facility] [address] [id number] [address] [place] [address], [place] [address] Aug, [facility] [address] [id number] [address] [place] [address], [place] [address] Aug, 2014 [facility] [address] [id number] [address] [place] [address], [place] [address] Jul, [facility] [address] [id number] [address] [place] [address], [place] [address] Jul, [facility] [address] [id number] [address] [place] [address], [place] [address] Jul, [facility] [address] [id number] [address] [place] [address], [place] [address] Jul, [facility] [address] [id number] [address] [place] [address], [place] [address] 23 Jul, 2014 [facility] [address] [id number] [address] [place] [address], [place] [address] 23 Jul, 2014 [facility] [address] [id number] [address] [place] [address], [place] [address] 23 Jul, 2014 [facility] [address] [id number] [address] [place] [address], [place] [address] 23 Jul, 2014 [facility] [address] [id number] [address] [place] [address], [place] [address] 20 Jul, 2014 [facility] [address] [id number] [address] [place] [address], [place] [address] 20 Jul, 2014 [facility] [address] [id number] [address] [place] [address], [place] [address] 19 Jul, 2014 [facility] [address] [id number] [address] [place] [address], [place] [address] 19 Jul, 2014 [facility] [address] [id number] [address] [place] [address], [place] [address] 17 Jul, 2014 [facility] [address] [id number] [address] [place] [address], [place] [address] 17 Jul, 2014 [facility] [address] [id number] [address] [place] [address], [place] [address] 16 Jul, 2014 [facility] [address] [id number] [address] [place] [address], [place] [address] 16 Jul, 2014 [facility] [address] [id number] [address] [place] [address], [place] [address] 16 Jul, 2014 [facility] [address] [id number] [address] [place] [address] 16 Jul, 2014 [facility] [address] [id number] [address] [place] [address] 13 Jul, 2014 [facility] [address] [id number] [address] [place] [address], [place] [address] Jul, [facility] [address] [id number] [address] [place] [address], [place] [address] Jul, [facility] [address] [id number] [address] [place] [address], [place] [address] Jul, 2014 [facility] [address] [id number] [address] [place] [address], [place] [address] Jul, 2014 [facility] [address] [id number] [address] [place] [address], [place] [address] Jul, [facility] [address] [id number] [address] [place] [address], [place] [address] Jul, [facility] [address] [id number] [address] [place] [address], [place] [address] Jul, [facility] [address] [id number] [address] [place] [address], [place] [address] Jul, [facility] [address] [id number] [address] [place] [address], [place] [address] Jul, [facility] [address] [id number] [address] [place] [address], [place] [address] Jul, [facility] [address] [id number] [address] [place] [address], [place] [address] Jul, [facility] [address] [id number] [address] [place] [address], [place] [address] Jun, [facility] [address] [id number] [address] [place] [address], [place] [address] Jun, [facility] [address] [id number] [address] [place] [address], [place] [address] Jun, [facility] [address] [id number] [address] [place] [address], [place] [address] Jun, [facility] [address] [id number] [address] [place] [address], [place] [address] Jun, [facility] [address] [id number] [address] [place] [address], [place] [address] Jun, [facility] [address] [id number] [address] [place] [address], [place] [address] Jun, [facility] [address] [id number] [address] [place] [address], [place] [address] Jun, [facility] [address] [id number] [address] [place] [address], [place] [address] Jun, [facility] [address] [id number] [address] [place] [address], [place] [address] Jun, [facility] [address] [id number] [address] [place] [address], [place] [address] Jun, [facility] [address] [id number] [address] [place] [address], [place] [address] Jun, [facility] [address] [id number] [address] [place] [address], [place] [address] Jun, [facility] [address] [id number] [address] [place] [address], [place] [address] Jun, [facility] [address] [id number] [address] [place] [address], [place] [address] Jun, [facility] [address] [id number] [address] [place] [address], [place] [address] Jun, [facility] [address] [id number] [address] [place] [address], [place] [address] Jun, [facility] [address] [id number] [address] [place] [address], [place] [address] Jun, [facility] [address] [id number] [address] [place] [address], [place] [address] Jun, [facility] [address] [id number] [address] [place] [address], [place] [address] Jun, [facility] [address] [id number] [address] [place] [address], [place] [address] May, [facility] [address] [id number] [address] [place] [address], [place] [address] May, [facility] [address] [id number] [address] [place] [address], [place] [address] May, [facility] [address] [id number] [address] [place] [address], [place] [address] May, [facility] [address] [id number] [address] [place] [address], [place] [address] May, [facility] [address] [id number] [address] [place] [address], [place] [address] May, [facility] [address] [id number] [address] [place] [address], [place] [address] May, [facility] [address] [id number] [address] [place] [address], [place] [address] May, [facility] [address] [id number] [address] [place] [address], [place] [address] May, [facility] [address] [id number] [address] [place] [address], [place] [address] May, [facility] [address] [id number] [address] [place] [address], [place] [address] May, [facility] [address] [id number] [address] [place] [address], [place] [address] 18 May, 2014 [facility] [address] [id number] [address] [place] [address], [place] [address] 18 May, 2014 [facility] [address] [id number] [address] [place] [address], [place] [address] 17 May, 2014 [facility] [address] [id number] [address] [place] [address], [place] [address] 16 May, 2014 [facility] [address] [id number] [address] [place] [address], [place] [address] 16 May, 2014 [facility] [address] [id number] [address] [place] [address], [place] [address] 15 May, 2014 [facility] [address] [id number] [address] [place] [address], [place] [address] 15 May, 2014 [facility] [address] [id number] [address] [place] [address], [place] [address] May, [facility] [address] [id number] [address] [place] [address], [place] [address] May, [facility] [address] [id number] [address] [place] [address], [place] [address] May, [facility] [address] [id number] [address] [place] [address], [place] [address] May, [facility] [address] [id number] [address] [place] [address], [place] [address] May, [facility] [address] [id number] [address] [place] [address], [place] [address] May, [facility] [address] [id number] [address] [place] [address], [place] [address] May, [facility] [address] [id number] [address] [place] [address], [place] [address] May, [facility] [address] [id number] [address] [place] [address], [place] [address] May, [facility] [address] [id number] [address] [place] [address], [place] [address] May, [facility] [address] [id number] [address] [place] [address], [place] [address] May, [facility] [address] [id number] [address] [place] [address], [place] [address] May, [facility] [address] [id number] [address] [place] [address], [place] [address] May, [facility] [address] [id number] [address] [place] [address], [place] [address] May, [facility] [address] [id number] [address] [place] [address], [place] [address] May, [facility] [address] [id number] [address] [place] [address], [place] [address] May, [facility] [address] [id number] [address] [place] [address], [place] [address] Apr, [facility] [address] [id number] [address] [place] [address], [place] [address] Apr, [facility] [address] [id number] [address] [place] [address], [place] [address] Apr, [facility] [address] [id number] [address] [place] [address], [place] [address] Apr, [facility] [address] [id number] [address] [place] [address], [place] [address] Apr, [facility] [address] [id number] [address] [place] [address], [place] [address] Apr, [facility] [address] [id number] [address] [place] [address], [place] [address] Apr, [facility] [address] [id number] [address] [place] [address], [place] [address] Apr, [facility] [address] [id number] [address] [place] [address], [place] [address] Apr, [facility] [address] [id number] [address] [place] [address], [place] [address] Apr, [facility] [address] [id number] [address] [place] [address], [place] [address] Mar, [facility] [address] [id number] [address] [place] [address], [place] [address] Mar, [facility] [address] [id number] [address] [place] [address] [address] Mar, [facility] [address] [id number] [address] [place] [address], [place] [address] 31 Mar, 2013 [facility] [address] [id number] [address] [place] [address], [place] [address] Mar, [facility] [address] [id number] [address] [place] [address], [place] [address] 30 Mar, 2014 [facility] [address] [id number] [address] [place] [address], [place] [address] Mar, [facility] [address] [id number] [address] [place] [address], [place] [address] Mar, [facility] [address] [id number] [address] [place] [address], [place] [address] Mar, [facility] [address] [id number] [address] [place] [address], [place] [address] Mar, [facility] [address] [id number] [address] [place] [id number] Mar, [facility] [address] [id number] [address] [place] [id number] Mar, [facility] [address] [id number] [address] [place] [id number] Mar, [facility] [address] [id number] [address] [place] [id number] Mar, 2013 [facility] [address] [id number] [address] [place] [id number] Mar, 2013 [facility] [address] [id number] [address] [place] [id number] Mar, [facility] [address] [id number] [address] [place] [id number] Mar, [facility] [address] [id number] [address] [place] [id number] Mar, 2013 [facility] [address] [id number] [address] [place] [address], [place] [address] 02 Mar, 2013 [facility] [address] [id number] [address] [place] [address], [place] [address] 02 Mar, 2013 [facility] [address] [id number] [address] [place] [address], [place] [address] 05 Sep, 2013 [facility] [address] [id number] [address] [place] [address], [place] [address] 05 Sep, 2013 [facility] [address] [id number] [address] [place] [address], [place] [address] 04 Sep, 2013 [facility] [address] [id number] [address] [place] [address], [place] [address] 04 Sep, 2013 [facility] [address] [id number] [address] [place] [address], [place] [address] 03 Feb, 2013 [facility] [address] [id number] [address] [place] [address], [place] [address] 03 Feb, 2013 [facility] [address] [id number] [address] [place] [address], [place] [address] 02 Feb, 2013 [facility] [address] [id number] [address] [place] [address], [place] [address] Feb, 2013 [facility] [address] [id number] [address] [place] [address], [place] [address] 02 Feb, 2013 [facility] [address] [id number] [address] [place] [address], [place] [address] Feb, 2013 [facility] [address] [id number] [address] [place] [address], [place] [address] Jan, [facility] [address] [id number] [address] [place] [address], [place] [address] Jan, [facility] [address] [id number] [address] [place] [address], [place] [address] Jan, [facility] [address] [id number] [address] [place] [address], [place] [address] Jan, [facility] [address] [id number] [facility] [place] [address] Jan, [facility] [address] [id number] [address] [place] [address], [place] [address] Jan, [facility] [address] [id number] [address] [place] [address], [place] [address] Jan, [facility] [address] [id number] [address] [place] [address], [place] [address] Jan, [facility] [address] [id number] [address] [place] [address], [place] [address] Jan, [facility] [address] [id number] [address] [place] [address], [place] [address] Jan, [facility] [address] [id number] [address] [place] [address], [place] [address] Jan, [facility] [address] [id number] [address] [place] [address], [place] [address] Jan, [facility] [address] [id number] [address] [place] [address], [place] [address] Dec, [facility] [address] [id number] [address] [place] [address], [place] [address] Dec, [facility] [address] [id number] [address] [place] [address], [place] [address] Dec, [facility] [address] [id number] [address] [place] [address], [place] [address] Dec, [facility] [address] [id number] [address] [place] [address], [place] [address] Dec, [facility] [address] [id number] [address] [place] [address], [place] [address] Dec, [facility] [address] [id number] [address] [place] [address], [place] [address] Dec, [facility] [address] [id number] [address] [place] [address], [place] [address] Dec, [facility] [address] [id number] [facility] [place] [address] Dec, [facility] [address] [id number] [address] [place] [address], [place] [address] Dec, [facility] [address] [id number] 18 [place] [address], [place] [address] Dec, [facility] [address] [id number] [address] [place] [address], [place] [address] Dec, [facility] [address] [id number] [address] [place] [address], [place] [address] Nov, [facility] [address] [id number] [address] [place] [address], [place] [address] Nov, [facility] [address] [id number] [address] [place] [address], [place] [address] Nov, [facility] [address] [id number] [address] [place] [address], [place] [address] Nov, [facility] [address] [id number] [address] [place] [address], [place] [address] Nov, [facility] [address] [id number] [address] [place] [address], [place] [address] Nov, [facility] [address] [id number] [address] [place] [address], [place] [address] Nov, [facility] [address] [id number] [address] [place] [address], [place] [address] Nov, [facility] [address] [id number] [address] [place] [address], [place] [address] Nov, [facility] [address] [id number] [address] [place] [address], [place] [address] Nov, [facility] [address] [id number] [address] [place] [address], [place] [address] Nov, [facility] [address] [id number] [facility] [place] [address] Nov, [facility] [address] [id number] [address] [place] [address], [place] [address] Nov, [facility] [address] [id number] [address] [place] [address], [place] [address] Nov, [facility] [address] [id number] [address] [place] [address], [place] [address] October, [facility] [address] [id number] [address] [place] [address], [place] [address] October, [facility] [address] [id number] [address] [place] [address], [place] [address] October, [facility] [address] [id number] [address] [place] [address], [place] [address] October, [facility] [address] [id number] [address] [place] [address], [place] [address] October, [facility] [address] [id number] [address] [place] [address], [place] [address] October, [facility] [address] [id number] [address] [place] [address], [place] [address] October, [facility] [address] [id number] [address] [place] [address], [place] [address] October, [facility] [address] [id number] [address] [place] [address], [place] [address] October, [facility] [address] [id number] [address] [place] [address], [place] [address] October, [facility] [address] [id number] [address] [place] [address], [place] [address] October, [facility] [address] [id number] [address] [place] [address], [place] [address] October, [facility] [address] [id number] [address] [place] [address], [place] [address] Sep, [facility] [address] [id number] [facility] [place] [address] Sep, [facility] [address] [id number] [address] [place] [address], [place] [address] Sep, [facility] [address] [id number] [facility] [place] [address] Sep, [facility] [address] [id number] [address] [place] [address], [place] [address] Sep, [facility] [address] [id number] [address] [place] [address], [place] [address] Sep, [facility] [address] [id number] [address] [place] [address], [place] [address] Aug, [facility] [address] [id number] [address] [place] [address], [place] [address] Aug, [facility] [address] [id number] [address] [place] [address], [place] [address] Aug, [facility] [address] [id number] [address] [place] [address], [place] [address] Aug, [facility] [address] [id number] [address] [place] [address], [place] [address] Aug, [facility] [address] [id number] [address] [place] [address], [place] [address] Aug, [facility] [address] [id number] [address] [place] [address], [place] [address] Jul, [facility] [address] [id number] [address] [place] [address], [place] [address] Jul, [facility] [address] [id number] [address] [place] [address], [place] [address] Jul, [facility] [address] [id number] [address] [place] [address], [place] [address] Jul, [facility] [address] [id number] [address] [place] [address], [place] [address] 13 Jul, 2013 [facility] [address] [id number] [address] [place] [address], [place] [address] Jul, [facility] [address] [id number] [address] [place] [address], [place] [address] Jul, [facility] [address] [id number] [address] [place] [address], [place] [address] Jul, [facility] [address] [id number] [address] [place] [address], [place] [address] Jul, [facility] [address] [id number] [address] [place] [address], [place] [address] Jul, [facility] [address] [id number] [address] [place] [address], [place] [address] Jun, [facility] [address] [id number] [address] [place] [address], [place] [address] Jun, [facility] [address] [id number] [address] [place] [address], [place] [address] Jun, [facility] [address] [id number] [address] [place] [address], [place] [address] Jun, [facility] [address] [id number] [address] [place] [address], [place] [address] Jun, [facility] [address] [id number] [address] [place] [address], [place] [address] Jun, [facility] [address] [id number] [address] [place] [address], [place] [address] Jun, [facility] [address] [id number] [address] [place] [address], [place] [address] Jun, [facility] [address] [id number] [address] [place] [address], [place] [address] May, [facility] [address] [id number] [address] [place] [address], [place] [address] May, [facility] [address] [id number] [address] [place] [address], [place] [address] May, [facility] [address] [id number] [address] [place] [address], [place] [address] May, [facility] [address] [id number] [address] [place] [address], [place] [address] May, [facility] [address] [id number] [address] [place] [address], [place] [address] May, [facility] [address] [id number] [address] [place] [address], [place] [address] May, [facility] [address] [id number] [address] [place] [address], [place] [address] May, [facility] [address] [id number] [address] [place] [address], [place] [address] Apr, [facility] [address] [id number] [address] [place] [address] Apr, [facility] [address] [id number] [address] [place] [address], [place] [address] Apr, [facility] [address] [id number] [address] [place] [address] Apr, [facility] [address] [id number] [address] [place] [address] Apr, [facility] [address] [id number] [address] [place] [address] Apr, [facility] [address] [id number] [address] [place] [address], [place] [address] Mar, [facility] [address] [id number] [address] [place] [address] Mar, [facility] [address] [id number] [address] [place] [address], [place] [address] Mar, [facility] [address] [id number] [address] [place] [address], [place] [address] Mar, [facility] [address] [id number] [address] [place] [address], [place] [address] Mar, [facility] [address] [id number] [address] [place] [address], [place] [address] Mar, [facility] [address] [id number] [address] [place] [address], [place] [address] Mar, [facility] [address] [id number] [address] [place] [address], [place] [address] 30 Feb, 2012 [facility] [address] [id number] [address] [place] [address], [place] [address] 30 Feb, 2013 [facility] [address] [id number] [address] [place] [address], [place] [address] 27 Feb, 2013 [facility] [address] [id number] [address] [place] [address], [place] [address] Feb, 2012 [facility] [address] [id number] [address] [place] [address], [place] [address] Feb, [facility] [address] [id number] [address] [place] [address], [place] [address] Feb, [facility] [address] [id number] [address] [place] [address], [place] [address] Jan, [facility] [address] [id number] [address] [place] [address], [place] [address] Jan, [facility] [address] [id number] [address] [place] [address], [place] [address] Jan, [facility] [address] [id number] [address] [place] [address], [place] [address] Jan, [facility] [address] [id number] [address] [place] [address], [place] [address] Jan, [facility] [address] [id number] [address] [place] [address], [place] [address] Jan, [facility] [address] [id number] [address] [place] [address], [place] [address] Jan, [facility] [address] [id number] [address] [place] [address], [place] [address] Jan, [facility] [address] [id number] [address] [place] [address], [place] [address] Jan, [facility] [address] [id number] [address] [place] [address], [place] [address] Dec, [facility] [address] [id number] [address] [place] [address], [place] [address] Dec, [facility] [address] [id number] [address] [place] [address], [place] [address] Dec, [facility] [address] [id number] [address] [place] [address], [place] [address] Dec, [facility] [address] [id number] [address] [place] [address], [place] [address] Dec, [facility] [address] [id number] [address] [place] [address], [place] [address] Dec, [facility] [address] [id number] [address] [place] [address], [place] [address] Dec, [facility] [address] [id number] [address] [place] [address], [place] [address] Dec, [facility] [address] [id number] [address] [place] [address], [place] [address] Dec, [facility] [address] [id number] [address] [place] [address], [place] [address] Dec, [facility] [address] [id number] [address] [place] [address], [place] [address] Dec, [facility] [address] [id number] [address] [place] [address], [place] [address] Dec, [facility] [address] [id number] [address] [place] [address], [place] [address] Dec, [facility] [address] [id number] [address] [place] [address], [place] [address] Nov, [facility] [address] [id number] [address] [place] [address], [place] [address] Nov, [facility] [address] [id number] [address] [place] [address], [place] [address] Nov, [facility] [address] [id number] [address] [place] [address], [place] [address] Nov, [facility] [address] [id number] [address] [place] [address], [place] [address] October, [facility] [address] [id number] [address] [place] [address], [place] [address] October, [facility] [address] [id number] [address] [place] [address], [place] [address] October, [facility] [address] [id number] [address] [place] [address], [place] [address] October, [facility] [address] [id number] [address] [place] [address], [place] [address] October, [facility] [address] [id number] [address] [place] [address], [place] [address] October, [facility] [address] [id number] [address] [place] [address], [place] [address] Sep, [facility] [address] [id number] [address] [place] [address], [place] [address] Sep, [facility] [address] [id number] [address] [place] [address], [place] [address] Sep, [facility] [address] [id number] [address] [place] [address], [place] [address] Sep, [facility] [address] [id number] [address] [place] [address], [place] [address] Sep, [facility] [address] [id number] [facility] [place] [address] 16 Sep, 2012 [facility] [address] [id number] [address] [place] [address], [place] [address] 12 Sep, 2012 [facility] [address] [id number] [address] [place] [address], [place] [address] Sep, [facility] [address] [id number] [address] [place] [address], [place] [address] Sep, [facility] [address] [id number] [address] [place] [address], [place] [address] Sep, [facility] [address] [id number] [address] [place] [address], [place] [address] Sep, [facility] [address] [id number] [address] [place] [address], [place] [address] Aug, [facility] [address] [id number] [address] [place] [address], [place] [address] 25 Aug, 2012 [facility] [address] [id number] [address] [place] [address], [place] [address] 25 Aug, 2012 [facility] [address] [id number] [address] [place] [address], [place] [address] 21 Aug, 2012 [facility] [address] [id number] [address] [place] [address], [place] [address] 19 Aug, 2012 [facility] [address] [id number] [address] [place] [address], [place] [address] 18 Aug, 2012 [facility] [address] [id number] [address] [place] [address], [place] [address] 17 Aug, 2012 [facility] [address] [id number] [address] [place] [address], [place] [address] 15 Aug, 2012 [facility] [address] [id number] [address] [place] [address], [place] [address] 15 Aug, 2012 [facility] [address] [id number] [address] [place] [address], [place] [address] Aug, [facility] [address] [id number] [address] [place] [address], [place] [address] Aug, [facility] [address] [id number] [address] [place] [address], [place] [address] Aug, [facility] [address] [id number] [address] [place] [address], [place] [address] Jul, [facility] [address] [id number] [address] [place] [address], [place] [address] Jul, [facility] [address] [id number] [address] [place] [address], [place] [address] Jul, [facility] [address] [id number] [address] [place] [address], [place] [address] Jul, [facility] [address] [id number] [address] [place] [address], [place] [address] Jul, [facility] [address] [id number] [address] [place] [address], [place] [address] Jul, [facility] [address] [id number] [address] [place] [address], [place] [address] Jul, [facility] [address] [id number] [address] [place] [address], [place] [address] Jul, [facility] [address] [id number] [address] [place] [address], [place] [address] Jul, [facility] [address] [id number] [address] [place] [address], [place] [address] Jul, [facility] [address] [id number] [address] [place] [address], [place] [address] May, [facility] [address] [id number] [place] [id number] May, [facility] [address] [id number] [address] [place] [address], [place] [address] May, [facility] [address] [id number] [address] [place] [address] May, [facility] [address] [facility] [id number] [address] [place] [address] May, [facility] [address] [facility] [id number] [address] [place] [address] Apr, [facility] [address] [id number] [place] [id number] Apr, [facility] [address] [facility] [id number] [address] [place] [address] Apr, [facility] [address] [facility] [id number] [address] [place] [address] Mar, [facility] [address] [id number] [place] [id number] Mar, [facility] [address] [facility] [id number] [address] [place] [address] Mar, [facility] [address] [id number] [place] [id number] Feb, [facility] [address] [facility] [id number] [address] [place] [phone] Feb, [facility] [address] [facility] [id number] [address] [place] [phone] Feb, [facility] [address] [id number] [place] [id number] Feb, [facility] [address] [id number] [place] [id number] Feb, [facility] [address] [id number] [place] [id number] Jan, [facility] [address] [id number] [address] [place] [address], [place] [address] Jan, [facility] [address] [id number] [place] [id number] Jan, [facility] [address] [id number] [place] [id number] Jan, [facility] [address] [id number] [place] [id number] Jan, [facility] [address] [facility] [id number] [address] [place] [address], [place] [address] Jan, [facility] [address] [facility] [id number] [address] [place] [address], [place] [address] Jan, [facility] [address] [facility] [id number] [address] [place] [address], [place] [address] Aug, [facility] [address] [id number] [place] [id number] Aug, [facility] [address] [facility] [id number] [address] [place] [address], [place] [address] Jul, [facility] [address] [facility] [id number] [address] [place] [address], [place] [address] Jul, [facility] [address] [facility] [id number] [address] [place] [address], [place] [address] Jul, [facility] [address] [id number] [place] [id number] Jul, [facility] [address] [facility] [id number] [address] [place] [address], [place] [address] Jul, [facility] [address] [id number] [place] [id number] Jul, [facility] [address] [facility] [id number] [address] [place] [address], [place] [address] Jul, [facility] [address] [id number] [place] [id number] Jul, [facility] [address] [id number] [place] [id number] Jul, [facility] [address] [id number] [place] [id number] Jul, [facility] [address] [facility] [id number] [address] [place] [address], [place] [address] May, [facility] [address] [id number] [address] [place] [id number] May, [facility] [address] [id number] [address] [place] [id number] May, [facility] [address] [id number] [address] [place] [id number] Apr, [facility] [address] [id number] [address] [place] [id number] Jan, [facility] [address] [id number] [address] [place] [phone] Jan, [facility] [address] [id number] [address] [place] [id number] Dec, [facility] [address] [id number] [address] [place] [phone] Dec, [facility] [address] [id number] [address] [place] [phone] May, [facility] [address] [id number] [address] [place] [id number] Mar, [facility] [address] [id number] [address] [place] [id number] Mar, [facility] [address] [id number] [address] [place] [phone] Jan, IMMUNIZATIONS No Known Immunizations SOCIAL HISTORY [...]
--- OUTSIDE RECORDS SUMMARY | 2020-01-28 12:47 | XMS REPORT ---
Author Author Heydi ROBB [facility] Address [address] [place] [address] Care Team Providers Care Practice Assistant Name Role Phone CEZAR JIMI Unavailable PROBLEMS Type Condition ICD9-CM Code DZR79-MH Code Onset Dates Condition S tatus SNOMED Code Problem Chronic pain syndrome G89.4 Active 594297439 Problem Sore throat J02.9 Active 21049588 3 Problem Choriocarcinoma C58 Active 1881 03882 Problem director long term care current use of anticoagulant Z79.01 Active 964664274 Problem History of venous thromboembolism V12.51 Active 218511724 Problem Cellulitis of unspecified part of limb L03.119 Active 234280253 Problem Gastroesophageal reflux disease without esophagitis K21.9 Active 120007958 Problem History of pulmonary embolism Z86.711 Active 399482955 Problem Pseudotumor cerebri G93.2 Active 30292449 Problem History of DVT (deep vein thrombosis) Z86.718 Active 834317402 ALLERGIES No Information ENCOUNTERS Encounter Location Date Diagnosis [place] [id number] [id number] [address] [place] [address] Apr, alf (current) use of 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 Z79.01 [facility] [address] [id number] [address] [place] [address] Apr, alf 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.01 [facility] [address] [id number] [address] [place] [address] Apr, Cellulitis of unspecified pa rt of limb L03.119 ; Allergic contact dermatitis due to adhesives L23.1 and Chronic pain syndrome G89.4 [facility] [address] [id number] [address] [place] [address] Apr, [place] [address] [place] [id number] [address] [place] [address] Apr, director long term care 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.01 ; Cellulitis of unspecified part of limb L03.119 ; Chronic pain syndrome G89.4 and Anxiety F41.9 [facility] [address] [place] [id number] [address] [place] [address] 16 Apr, 2015 [facility] [address] [place] [id number] [place] [address] Apr, [place] [address] [place] [id number] [place] [address] Mar, [place] [address] [address] Mar, [place] [address] [address] Mar, Sore throat J02.9 ; Gastroes ophageal reflux disease without esophagitis K21.9 ; Pseudotumor cerebri G93.2 ; Chronic pain syndrome G89.4 ; Choriocarcinoma C58 ; History of pulmonary embolism Z86.711 ; History of DVT (deep vein thrombosis) Z86.718 ; Anxiety F41.9 and Tachycardia R00.0 [place] [address] [address] Feb, Anxiety 300.00 and Chronic p ain 338.29 [place] [address] [place] [id number] [address] [place] [address] Feb, [place] [address] [place] [id number] [address] [place] [address] Feb, [place] [address] [address] Jan, director long term care current use of ant icoagulant therapy V58.61 and Dysuria 788.1 [place] [address] [place] [id number] [place] [address] Jan, Dysuria 788.1 [facility] [address] [place] [id number] [address] [place] [address] Jan, Anxiety 300.00 and Chronic p ain 338.29 [facility] [address] [place] [id number] [place] [address] Jan, [facility] [address] [address] Jan, [facility] [address] [address] Jan, [place] [address] [address] Dec, Weakness 780.79 [place] [address] [address] Dec, alf current use of ant icoagulant therapy V58.61 [place] [address] [address] Dec, Palpitations 785.1 ; Tremor 781.0 ; Weakness 780.79 ; alf current use of anticoagulant therapy V58.61 and Yeast vaginitis 112.1 [place] [address] [place] [id number] [address] [place] [address] Dec, [place] [address] [address] Dec, Cervicalgia 723.1 ; Tachycar yoseph 785.0 ; Pseudotumor cerebri 348.2 and History of venous thromboembolism V12.51 [place] [address] [address] Nov, [place] [address] [address] Nov, [place] [address] [address] Nov, Tachycardia 785.0 ; Pseudotu mor cerebri 348.2 ; Anxiety 300.00 and History of venous thromboembolism V12.51 [facility] [address] [id number] [address] [place] [address] Nov, [facility] [address] [id number] [address] [place] [address] 18 Nov, 2014 [facility] [address] [id number] [address] [place] [address] Nov, [facility] [address] [id number] [address] [place] [address] Nov, [facility] [address] [id number] [address] [place] [address] Nov, [facility] [address] [id number] [address] [place] [address] Nov, [facility] [address] [id number] [address] [place] [address] Nov, [facility] [address] [id number] [address] [place] [address] October, [facility] [address] [id number] [address] [place] [address] October, [facility] [address] [place] [id number] [address] [place] [address] October, Pain in thoracic spine 724.1 and Tachycardia 785.0 [facility] [address] [id number] [address] [place] [address] October, [facility] [address] [id number] [address] [place] [address] October, [facility] [address] [id number] [address] [place] [address] 14 Sep, 2014 [facility] [address] [id number] [address] [place] [address] Sep, [facility] [address] [id number] [facility] [place] [address] Aug, [facility] [address] [id number] [address] [place] [address], [place] [address] Aug, [facility] [address] [id number] [address] [place] [address], [place] [address] Aug, [facility] [address] [id number] [address] [place] [address], [place] [address] Aug, [facility] [address] [id number] [address] [place] [address], [place] [address] Aug, [facility] [address] [id number] [address] [place] [address], [place] [address] Aug, [facility] [address] [id number] [address] [place] [address], [place] [address] Aug, [facility] [address] [id number] [address] [place] [address], [place] [address] Aug, [facility] [address] [id number] [address] [place] [address], [place] [address] Aug, [facility] [address] [id number] [address] [place] [address], [place] [address] Aug, [facility] [address] [id number] [address] [place] [address], [place] [address] Aug, [facility] [address] [id number] [address] [place] [address], [place] [address] Aug, 2014 [facility] [address] [id number] [address] [place] [address], [place] [address] Jul, [facility] [address] [id number] [address] [place] [address], [place] [address] Jul, [facility] [address] [id number] [address] [place] [address], [place] [address] Jul, [facility] [address] [id number] [address] [place] [address], [place] [address] Jul, [facility] [address] [id number] [address] [place] [address], [place] [address] 23 Jul, 2014 [facility] [address] [id number] [address] [place] [address], [place] [address] 23 Jul, 2014 [facility] [address] [id number] [address] [place] [address], [place] [address] 23 Jul, 2014 [facility] [address] [id number] [address] [place] [address], [place] [address] 23 Jul, 2014 [facility] [address] [id number] [address] [place] [address], [place] [address] 20 Jul, 2014 [facility] [address] [id number] [address] [place] [address], [place] [address] 20 Jul, 2014 [facility] [address] [id number] [address] [place] [address], [place] [address] 19 Jul, 2014 [facility] [address] [id number] [address] [place] [address], [place] [address] 19 Jul, 2014 [facility] [address] [id number] [address] [place] [address], [place] [address] 17 Jul, 2014 [facility] [address] [id number] [address] [place] [address], [place] [address] 17 Jul, 2014 [facility] [address] [id number] [address] [place] [address], [place] [address] 16 Jul, 2014 [facility] [address] [id number] [address] [place] [address], [place] [address] 16 Jul, 2014 [facility] [address] [id number] [address] [place] [address], [place] [address] 16 Jul, 2014 [facility] [address] [id number] [address] [place] [address] 16 Jul, 2014 [facility] [address] [id number] [address] [place] [address] 13 Jul, 2014 [facility] [address] [id number] [address] [place] [address], [place] [address] Jul, [facility] [address] [id number] [address] [place] [address], [place] [address] Jul, [facility] [address] [id number] [address] [place] [address], [place] [address] Jul, 2014 [facility] [address] [id number] [address] [place] [address], [place] [address] Jul, 2014 [facility] [address] [id number] [address] [place] [address], [place] [address] Jul, [facility] [address] [id number] [address] [place] [address], [place] [address] Jul, [facility] [address] [id number] [address] [place] [address], [place] [address] Jul, [facility] [address] [id number] [address] [place] [address], [place] [address] Jul, [facility] [address] [id number] [address] [place] [address], [place] [address] Jul, [facility] [address] [id number] [address] [place] [address], [place] [address] Jul, [facility] [address] [id number] [address] [place] [address], [place] [address] Jul, [facility] [address] [id number] [address] [place] [address], [place] [address] Jun, [facility] [address] [id number] [address] [place] [address], [place] [address] Jun, [facility] [address] [id number] [address] [place] [address], [place] [address] Jun, [facility] [address] [id number] [address] [place] [address], [place] [address] Jun, [facility] [address] [id number] [address] [place] [address], [place] [address] Jun, [facility] [address] [id number] [address] [place] [address], [place] [address] Jun, [facility] [address] [id number] [address] [place] [address], [place] [address] Jun, [facility] [address] [id number] [address] [place] [address], [place] [address] Jun, [facility] [address] [id number] [address] [place] [address], [place] [address] Jun, [facility] [address] [id number] [address] [place] [address], [place] [address] Jun, [facility] [address] [id number] [address] [place] [address], [place] [address] Jun, [facility] [address] [id number] [address] [place] [address], [place] [address] Jun, [facility] [address] [id number] [address] [place] [address], [place] [address] Jun, [facility] [address] [id number] [address] [place] [address], [place] [address] Jun, [facility] [address] [id number] [address] [place] [address], [place] [address] Jun, [facility] [address] [id number] [address] [place] [address], [place] [address] Jun, [facility] [address] [id number] [address] [place] [address], [place] [address] Jun, [facility] [address] [id number] [address] [place] [address], [place] [address] Jun, [facility] [address] [id number] [address] [place] [address], [place] [address] Jun, [facility] [address] [id number] [address] [place] [address], [place] [address] Jun, [facility] [address] [id number] [address] [place] [address], [place] [address] May, [facility] [address] [id number] [address] [place] [address], [place] [address] May, [facility] [address] [id number] [address] [place] [address], [place] [address] May, [facility] [address] [id number] [address] [place] [address], [place] [address] May, [facility] [address] [id number] [address] [place] [address], [place] [address] May, [facility] [address] [id number] [address] [place] [address], [place] [address] May, [facility] [address] [id number] [address] [place] [address], [place] [address] May, [facility] [address] [id number] [address] [place] [address], [place] [address] May, [facility] [address] [id number] [address] [place] [address], [place] [address] May, [facility] [address] [id number] [address] [place] [address], [place] [address] May, [facility] [address] [id number] [address] [place] [address], [place] [address] May, [facility] [address] [id number] [address] [place] [address], [place] [address] 18 May, 2014 [facility] [address] [id number] [address] [place] [address], [place] [address] 18 May, 2014 [facility] [address] [id number] [address] [place] [address], [place] [address] 17 May, 2014 [facility] [address] [id number] [address] [place] [address], [place] [address] 16 May, 2014 [facility] [address] [id number] [address] [place] [address], [place] [address] 16 May, 2014 [facility] [address] [id number] [address] [place] [address], [place] [address] 15 May, 2014 [facility] [address] [id number] [address] [place] [address], [place] [address] 15 May, 2014 [facility] [address] [id number] [address] [place] [address], [place] [address] May, [facility] [address] [id number] [address] [place] [address], [place] [address] May, [facility] [address] [id number] [address] [place] [address], [place] [address] May, [facility] [address] [id number] [address] [place] [address], [place] [address] May, [facility] [address] [id number] [address] [place] [address], [place] [address] May, [facility] [address] [id number] [address] [place] [address], [place] [address] May, [facility] [address] [id number] [address] [place] [address], [place] [address] May, [facility] [address] [id number] [address] [place] [address], [place] [address] May, [facility] [address] [id number] [address] [place] [address], [place] [address] May, [facility] [address] [id number] [address] [place] [address], [place] [address] May, [facility] [address] [id number] [address] [place] [address], [place] [address] May, [facility] [address] [id number] [address] [place] [address], [place] [address] May, [facility] [address] [id number] [address] [place] [address], [place] [address] May, [facility] [address] [id number] [address] [place] [address], [place] [address] May, [facility] [address] [id number] [address] [place] [address], [place] [address] May, [facility] [address] [id number] [address] [place] [address], [place] [address] May, [facility] [address] [id number] [address] [place] [address], [place] [address] Apr, [facility] [address] [id number] [address] [place] [address], [place] [address] Apr, [facility] [address] [id number] [address] [place] [address], [place] [address] Apr, [facility] [address] [id number] [address] [place] [address], [place] [address] Apr, [facility] [address] [id number] [address] [place] [address], [place] [address] Apr, [facility] [address] [id number] [address] [place] [address], [place] [address] Apr, [facility] [address] [id number] [address] [place] [address], [place] [address] Apr, [facility] [address] [id number] [address] [place] [address], [place] [address] Apr, [facility] [address] [id number] [address] [place] [address], [place] [address] Apr, [facility] [address] [id number] [address] [place] [address], [place] [address] Apr, [facility] [address] [id number] [address] [place] [address], [place] [address] Mar, [facility] [address] [id number] [address] [place] [address], [place] [address] Mar, [facility] [address] [id number] [address] [place] [address] [address] Mar, [facility] [address] [id number] [address] [place] [address], [place] [address] 31 Mar, 2013 [facility] [address] [id number] [address] [place] [address], [place] [address] Mar, [facility] [address] [id number] [address] [place] [address], [place] [address] 30 Mar, 2014 [facility] [address] [id number] [address] [place] [address], [place] [address] Mar, [facility] [address] [id number] [address] [place] [address], [place] [address] Mar, [facility] [address] [id number] [address] [place] [address], [place] [address] Mar, [facility] [address] [id number] [address] [place] [address], [place] [address] Mar, [facility] [address] [id number] [address] [place] [address] Mar, [facility] [address] [id number] [address] [place] [address] Mar, [facility] [address] [id number] [address] [place] [address] Mar, [facility] [address] [id number] [address] [place] [address] Mar, 2013 [facility] [address] [id number] [address] [place] [address] Mar, 2013 [facility] [address] [id number] [address] [place] [address] Mar, [facility] [address] [id number] [address] [place] [id number] Mar, [facility] [address] [id number] [address] [place] [id number] Mar, 2013 [facility] [address] [id number] [address] [place] [address], [place] [address] 02 Mar, 2013 [facility] [address] [id number] [address] [place] [address], [place] [address] 02 Mar, 2013 [facility] [address] [id number] [address] [place] [address], [place] [address] 05 Sep, 2013 [facility] [address] [id number] [address] [place] [address], [place] [address] 05 Sep, 2013 [facility] [address] [id number] [address] [place] [address], [place] [address] 04 Sep, 2013 [facility] [address] [id number] [address] [place] [address], [place] [address] 04 Sep, 2013 [facility] [address] [id number] [address] [place] [address], [place] [address] 03 Feb, 2013 [facility] [address] [id number] [address] [place] [address], [place] [address] 03 Feb, 2013 [facility] [address] [id number] [address] [place] [address], [place] [address] 02 Feb, 2013 [facility] [address] [id number] [address] [place] [address], [place] [address] Feb, 2013 [facility] [address] [id number] [address] [place] [address], [place] [address] 02 Feb, 2013 [facility] [address] [id number] [address] [place] [address], [place] [address] Feb, 2013 [facility] [address] [id number] [address] [place] [address], [place] [address] Jan, [facility] [address] [id number] [address] [place] [address], [place] [address] Jan, [facility] [address] [id number] [address] [place] [address], [place] [address] Jan, [facility] [address] [id number] [address] [place] [address], [place] [address] Jan, [facility] [address] [id number] [facility] [place] [address] Jan, [facility] [address] [id number] [address] [place] [address], [place] [address] Jan, [facility] [address] [id number] [address] [place] [address], [place] [address] Jan, [facility] [address] [id number] [address] [place] [address], [place] [address] Jan, [facility] [address] [id number] [address] [place] [address], [place] [address] Jan, [facility] [address] [id number] [address] [place] [address], [place] [address] Jan, [facility] [address] [id number] [address] [place] [address], [place] [address] Jan, [facility] [address] [id number] [address] [place] [address], [place] [address] Jan, [facility] [address] [id number] [address] [place] [address], [place] [address] Dec, [facility] [address] [id number] [address] [place] [address], [place] [address] Dec, [facility] [address] [id number] [address] [place] [address], [place] [address] Dec, [facility] [address] [id number] [address] [place] [address], [place] [address] Dec, [facility] [address] [id number] [address] [place] [address], [place] [address] Dec, [facility] [address] [id number] [address] [place] [address], [place] [address] Dec, [facility] [address] [id number] [address] [place] [address], [place] [address] Dec, [facility] [address] [id number] [address] [place] [address], [place] [address] Dec, [facility] [address] [id number] [facility] [place] [address] Dec, [facility] [address] [id number] [address] [place] [address], [place] [address] Dec, [facility] [address] [id number] [place] [address], [place] [address] Dec, [facility] [address] [id number] [address] [place] [address], [place] [address] Dec, [facility] [address] [id number] [address] [place] [address], [place] [address] Nov, [facility] [address] [id number] [address] [place] [address], [place] [address] Nov, [facility] [address] [id number] [address] [place] [address], [place] [address] Nov, [facility] [address] [id number] [address] [place] [address], [place] [address] Nov, [facility] [address] [id number] [address] [place] [address], [place] [address] Nov, [facility] [address] [id number] [address] [place] [address], [place] [address] Nov, [facility] [address] [id number] [address] [place] [address], [place] [address] Nov, [facility] [address] [id number] [address] [place] [address], [place] [address] Nov, [facility] [address] [id number] [address] [place] [address], [place] [address] Nov, [facility] [address] [id number] [address] [place] [address], [place] [address] Nov, [facility] [address] [id number] [address] [place] [address], [place] [address] Nov, [facility] [address] [id number] [facility] [place] [address] Nov, [facility] [address] [id number] [address] [place] [address], [place] [address] Nov, [facility] [address] [id number] [address] [place] [address], [place] [address] Nov, [facility] [address] [id number] [address] [place] [address], [place] [address] October, [facility] [address] [id number] [address] [place] [address], [place] [address] October, [facility] [address] [id number] [address] [place] [address], [place] [address] October, [facility] [address] [id number] [address] [place] [address], [place] [address] October, [facility] [address] [id number] [address] [place] [address], [place] [address] October, [facility] [address] [id number] [address] [place] [address], [place] [address] October, [facility] [address] [id number] [address] [place] [address], [place] [address] October, [facility] [address] [id number] [address] [place] [address], [place] [address] October, [facility] [address] [id number] [address] [place] [address], [place] [address] October, [facility] [address] [id number] [address] [place] [address], [place] [address] October, [facility] [address] [id number] [address] [place] [address], [place] [address] October, [facility] [address] [id number] [address] [place] [address], [place] [address] October, [facility] [address] [id number] [address] [place] [address], [place] [address] Sep, [facility] [address] [id number] [facility] [address] Sep, [facility] [address] [id number] [address] [place] [address], [place] [address] Sep, [facility] [address] [id number] [facility] [place] [address] Sep, [facility] [address] [id number] [address] [place] [address], [place] [address] Sep, [facility] [address] [id number] [address] [place] [address], [place] [address] Sep, [facility] [address] [id number] [address] [place] [address], [place] [address] Aug, [facility] [address] [id number] [address] [place] [address], [place] [address] Aug, [facility] [address] [id number] [address] [place] [address], [place] [address] Aug, [facility] [address] [id number] [address] [place] [address], [place] [address] Aug, [facility] [address] [id number] [address] [place] [address], [place] [address] Aug, [facility] [address] [id number] [address] [place] [address], [place] [address] Aug, [facility] [address] [id number] [address] [place] [address], [place] [address] Jul, [facility] [address] [id number] [address] [place] [address], [place] [address] Jul, [facility] [address] [id number] [address] [place] [address], [place] [address] Jul, [facility] [address] [id number] [address] [place] [address], [place] [address] Jul, [facility] [address] [id number] [address] [place] [address], [place] [address] 13 Jul, 2013 [facility] [address] [id number] [address] [place] [address], [place] [address] Jul, [facility] [address] [id number] [address] [place] [address], [place] [address] Jul, [facility] [address] [id number] [address] [place] [address], [place] [address] Jul, [facility] [address] [id number] [address] [place] [address], [place] [address] Jul, [facility] [address] [id number] [address] [place] [address], [place] [address] Jul, [facility] [address] [id number] [address] [place] [address], [place] [address] Jun, [facility] [address] [id number] [address] [place] [address], [place] [address] Jun, [facility] [address] [id number] [address] [place] [address], [place] [address] Jun, [facility] [address] [id number] [address] [place] [address], [place] [address] Jun, [facility] [address] [id number] [address] [place] [address], [place] [address] Jun, [facility] [address] [id number] [address] [place] [address], [place] [address] Jun, [facility] [address] [id number] [address] [place] [address], [place] [address] Jun, [facility] [address] [id number] [address] [place] [address], [place] [address] Jun, [facility] [address] [id number] [address] [place] [address], [place] [address] May, [facility] [address] [id number] [address] [place] [address], [place] [address] May, [facility] [address] [id number] [address] [place] [address], [place] [address] May, [facility] [address] [id number] [address] [place] [address], [place] [address] May, [facility] [address] [id number] [address] [place] [address], [place] [address] May, [facility] [address] [id number] [address] [place] [address], [place] [address] May, [facility] [address] [id number] [address] [place] [address], [place] [address] May, [facility] [address] [id number] [address] [place] [address], [place] [address] May, [facility] [address] [id number] [address] [place] [address], [place] [address] Apr, [facility] [address] [id number] [address] [place] [address] Apr, [facility] [address] [id number] [address] [place] [address], [place] [address] Apr, [facility] [address] [id number] [address] [place] [address] Apr, [facility] [address] [id number] [address] [place] [address] Apr, [facility] [address] [id number] [address] [place] [address] Apr, [facility] [address] [id number] [address] [place] [address], [place] [address] Mar, [facility] [address] [id number] [address] [place] [address] Mar, [facility] [address] [id number] [address] [place] [address], [place] [address] Mar, [facility] [address] [id number] [address] [place] [address], [place] [address] Mar, [facility] [address] [id number] [address] [place] [address], [place] [address] Mar, [facility] [address] [id number] [address] [place] [address], [place] [address] Mar, [facility] [address] [id number] [address] [place] [address], [place] [address] Mar, [facility] [address] [id number] [address] [place] [address], [place] [address] 30 Feb, 2012 [facility] [address] [id number] [address] [place] [address], [place] [address] 30 Feb, 2013 [facility] [address] [id number] [address] [place] [address], [place] [address] 27 Feb, 2013 [facility] [address] [id number] [address] [place] [address], [place] [address] Feb, 2012 [facility] [address] [id number] [address] [place] [address], [place] [address] Feb, [facility] [address] [id number] [address] [place] [address], [place] [address] Feb, [facility] [address] [id number] [address] [place] [address], [place] [address] Jan, [facility] [address] [id number] [address] [place] [address], [place] [address] Jan, [facility] [address] [id number] [address] [place] [address], [place] [address] Jan, [facility] [address] [id number] [address] [place] [address], [place] [address] Jan, [facility] [address] [id number] [address] [place] [address], [place] [address] Jan, [facility] [address] [id number] [address] [place] [address], [place] [address] Jan, [facility] [address] [id number] [address] [place] [address], [place] [address] Jan, [facility] [address] [id number] [address] [place] [address], [place] [address] Jan, [facility] [address] [id number] [address] [place] [address], [place] [address] Jan, [facility] [address] [id number] [address] [place] [address], [place] [address] Dec, [facility] [address] [id number] [address] [place] [address], [place] [address] Dec, [facility] [address] [id number] [address] [place] [address], [place] [address] Dec, [facility] [address] [id number] [address] [place] [address], [place] [address] Dec, [facility] [address] [id number] [address] [place] [address], [place] [address] Dec, [facility] [address] [id number] [address] [place] [address], [place] [address] Dec, [facility] [address] [id number] [address] [place] [address], [place] [address] Dec, [facility] [address] [id number] [address] [place] [address], [place] [address] Dec, [facility] [address] [id number] [address] [place] [address], [place] [address] Dec, [facility] [address] [id number] [address] [place] [address], [place] [address] Dec, [facility] [address] [id number] [address] [place] [address], [place] [address] Dec, [facility] [address] [id number] [address] [place] [address], [place] [address] Dec, [facility] [address] [id number] [address] [place] [address], [place] [address] Dec, [facility] [address] [id number] [address] [place] [address], [place] [address] Nov, [facility] [address] [id number] [address] [place] [address], [place] [address] Nov, [facility] [address] [id number] [address] [place] [address], [place] [address] Nov, [facility] [address] [id number] [address] [place] [address], [place] [address] Nov, [facility] [address] [id number] [address] [place] [address], [place] [address] October, [facility] [address] [id number] [address] [place] [address], [place] [address] October, [facility] [address] [id number] [address] [place] [address], [place] [address] October, [facility] [address] [id number] [address] [place] [address], [place] [address] October, [facility] [address] [id number] [address] [place] [address], [place] [address] October, [facility] [address] [id number] [address] [place] [address], [place] [address] October, [facility] [address] [id number] [address] [place] [address], [place] [address] Sep, [facility] [address] [id number] [address] [place] [address], [place] [address] Sep, [facility] [address] [id number] [address] [place] [address], [place] [address] Sep, [facility] [address] [id number] [address] [place] [address], [place] [address] Sep, [facility] [address] [id number] [address] [place] [address], [place] [address] Sep, [facility] [address] [id number] [facility] [place] [address] 16 Sep, 2012 [facility] [address] [id number] [address] [place] [address], [place] [address] 12 Sep, 2012 [facility] [address] [id number] [address] [place] [address], [place] [address] Sep, [facility] [address] [id number] [address] [place] [address], [place] [address] Sep, [facility] [address] [id number] [address] [place] [address], [place] [address] Sep, [facility] [address] [id number] [address] [place] [address], [place] [address] Sep, [facility] [address] [id number] [address] [place] [address], [place] [address] Aug, [facility] [address] [id number] [address] [place] [address], [place] [address] 25 Aug, 2012 [facility] [address] [id number] [address] [place] [address], [place] [address] 25 Aug, 2012 [facility] [address] [id number] [address] [place] [address], [place] [address] 21 Aug, 2012 [facility] [address] [id number] [address] [place] [address], [place] [address] 19 Aug, 2012 [facility] [address] [id number] [address] [place] [address], [place] [address] 18 Aug, 2012 [facility] [address] [id number] [address] [place] [address], [place] [address] 17 Aug, 2012 [facility] [address] [id number] [address] [place] [address], [place] [address] 15 Aug, 2012 [facility] [address] [id number] [address] [place] [address], [place] [address] 15 Aug, 2012 [facility] [address] [id number] [address] [place] [address], [place] [address] Aug, [facility] [address] [id number] [address] [place] [address], [place] [address] Aug, [facility] [address] [id number] [address] [place] [address], [place] [address] Aug, [facility] [address] [id number] [address] [place] [address], [place] [address] Jul, [facility] [address] [id number] [address] [place] [address], [place] [address] Jul, [facility] [address] [id number] [address] [place] [address], [place] [address] Jul, [facility] [address] [id number] [address] [place] [address], [place] [address] Jul, [facility] [address] [id number] [address] [place] [address], [place] [address] Jul, [facility] [address] [id number] [address] [place] [address], [place] [address] Jul, [facility] [address] [id number] [address] [place] [address], [place] [address] Jul, [facility] [address] [id number] [address] [place] [address], [place] [address] Jul, [facility] [address] [id number] [address] [place] [address], [place] [address] Jul, [facility] [address] [id number] [address] [place] [address], [place] [address] Jul, [facility] [address] [id number] [address] [place] [address], [place] [address] May, [facility] [address] [id number] [place] [id number] May, [facility] [address] [id number] [address] [place] [address], [place] [address] May, [facility] [address] [id number] [address] [place] [address] May, [facility] [address] [id number] [address] [place] [address] May, [facility] [address] [id number] [address] [place] [address] Apr, [facility] [address] [id number] [place] [id number] Apr, [facility] [address] [id number] [address] [place] [address] Apr, [facility] [address] [id number] [address] [place] [address] Mar, [facility] [address] [id number] [place] [id number] Mar, [facility] [address] [id number] [address] [place] [address] Mar, [facility] [address] [id number] [place] [id number] Feb, [facility] [address] [id number] [address] [place] [id number] Feb, [facility] [address] [id number] [address] [place] [id number] Feb, [facility] [address] [id number] [place] [id number] Feb, [facility] [address] [id number] [place] [id number] Feb, [facility] [address] [id number] [place] [id number] Jan, [facility] [address] [id number] [address] [place] [address], [place] [address] Jan, [facility] [address] [id number] [place] [id number] Jan, [facility] [address] [id number] [place] [id number] Jan, [facility] [address] [id number] [place] [id number] Jan, [facility] [address] [id number] [address] [place] [address], [place] [address] Jan, [facility] [address] [id number] [address] [place] [address], [place] [phone] Jan, [facility] [address] [id number] [address] [place] [address], [place] [address] Aug, [facility] [address] [id number] [place] [id number] Aug, [facility] [address] [id number] [address] [place] [address], [place] [address] Jul, [facility] [address] [id number] [address] [place] [address], [place] [address] Jul, [facility] [address] [id number] [address] [place] [address], [place] [address] Jul, [facility] [address] [id number] [place] [id number] Jul, [facility] [address] [id number] [address] [place] [address], [place] [address] Jul, [facility] [address] [id number] [place] [id number] Jul, [facility] [address] [id number] [address] [place] [address], [place] [address] Jul, [facility] [address] [id number] [place] [id number] Jul, [facility] [address] [id number] [place] [id number] Jul, [facility] [address] [id number] [place] [id number] Jul, [facility] [address] [id number] [address] [place] [address], [place] [address] May, [facility] [address] [id number] [address] [place] [id number] May, [facility] [address] [id number] [address] [place] [id number] May, [facility] [address] [id number] [address] [place] [id number] Apr, [facility] [address] [id number] [address] [place] [id number] Jan, [facility] [address] [id number] [address] [place] [id number] Jan, [facility] [address] [id number] [address] [place] [id number] Dec, [facility] [address] [id number] [address] [place] [id number] Dec, [facility] [address] [id number] [address] [place] [id number] May, [facility] [address] [id number] [address] [place] [id number] Mar, [facility] [address] [id number] [address] [place] [id number] Mar, [facility] [address] [id number] [address] [place] [id number] Jan, IMMUNIZATIONS No Known Immunizations SOCIAL HISTORY [...]
--- OUTSIDE RECORDS SUMMARY | 2020-01-28 12:47 | XMS REPORT ---
Author Author Heydi ROBB [facility] Address [address] [place] [address] Care Team Providers Care Cloth Shrinking Supervisor Name Role Phone CEZAR JIMI Unavailable PROBLEMS Type Condition ICD9-CM Code [id number] Code Onset Dates Condition S tatus SNOMED Code Problem Chronic pain syndrome G89.4 Active 495048188 Problem Sore throat J02.9 Active 01450743 3 Problem Choriocarcinoma C58 Active 1881 33912 Problem rn long term care current use of anticoagulant Z79.01 Active 405328747 Problem History of venous thromboembolism V12.51 Active 664308519 Problem Cellulitis of unspecified part of limb L03.119 Active 788716809 Problem Gastroesophageal reflux disease without esophagitis K21.9 Active 833838758 Problem History of pulmonary embolism Z86.711 Active 300904442 Problem Pseudotumor cerebri G93.2 Active 69708659 Problem History of DVT (deep vein thrombosis) Z86.718 Active 052854217 ALLERGIES No Information ENCOUNTERS Encounter Location Date Diagnosis [place] [id number] [facility] [id number] [address] [place] [address] Apr, nursing home (current) use of 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 Z79.01 [facility] [address] [facility] [id number] [address] [place] [address] Apr, nursing home 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.01 [facility] [address] [facility] [id number] [address] [place] [address] Apr, Cellulitis of unspecified pa rt of limb L03.119 ; Allergic contact dermatitis due to adhesives L23.1 and Chronic pain syndrome G89.4 [facility] [address] [facility] [id number] [address] [place] [address] Apr, [place] [address] [place] [id number] [address] [place] [address] Apr, rn long term care 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.01 ; Cellulitis of unspecified part of limb L03.119 ; Chronic pain syndrome G89.4 and Anxiety F41.9 [facility] [address] [place] [id number] [address] [place] [address] 16 Apr, 2015 [facility] [address] [place] [id number] [place] [address] Apr, [place] [address] [place] [id number] [place] [address] Mar, [place] [address] [address] Mar, [place] [address] [address] Mar, Sore throat J02.9 ; Gastroes ophageal reflux disease without esophagitis K21.9 ; Pseudotumor cerebri G93.2 ; Chronic pain syndrome G89.4 ; Choriocarcinoma C58 ; History of pulmonary embolism Z86.711 ; History of DVT (deep vein thrombosis) Z86.718 ; Anxiety F41.9 and Tachycardia R00.0 [place] [address] [address] Feb, Anxiety 300.00 and Chronic p ain 338.29 [place] [address] [place] [id number] [address] [place] [address] Feb, [place] [address] [place] [id number] [address] [place] [address] Feb, [place] [address] [address] Jan, rn long term care current use of ant icoagulant therapy V58.61 and Dysuria 788.1 [place] [address] [place] [id number] [place] [address] Jan, Dysuria 788.1 [facility] [address] [place] [id number] [address] [place] [address] Jan, Anxiety 300.00 and Chronic p ain 338.29 [facility] [address] [place] [id number] [place] [address] Jan, [facility] [address] [address] Jan, [facility] [address] [address] Jan, [place] [address] [address] Dec, Weakness 780.79 [place] [address] [address] Dec, nursing home current use of ant icoagulant therapy V58.61 [place] [address] [address] Dec, Palpitations 785.1 ; Tremor 781.0 ; Weakness 780.79 ; nursing home current use of anticoagulant therapy V58.61 and Yeast vaginitis 112.1 [place] [address] [place] [id number] [address] [place] [address] Dec, [place] [address] [address] Dec, Cervicalgia 723.1 ; Tachycar yoseph 785.0 ; Pseudotumor cerebri 348.2 and History of venous thromboembolism V12.51 [place] [address] [address] Nov, [place] [address] [address] Nov, [place] [address] [address] Nov, Tachycardia 785.0 ; Pseudotu mor cerebri 348.2 ; Anxiety 300.00 and History of venous thromboembolism V12.51 [facility] [address] [id number] [address] [place] [address] Nov, [facility] [address] [id number] [address] [place] [address] 18 Nov, 2014 [facility] [address] [id number] [address] [place] [address] Nov, [facility] [address] [id number] [address] [place] [address] Nov, [facility] [address] [facility] [id number] [address] [place] [address] Nov, [facility] [address] [facility] [id number] [address] [place] [address] Nov, [facility] [address] [facility] [id number] [address] [place] [address] Nov, [facility] [address] [facility] [id number] [address] [place] [address] October, [facility] [address] [facility] [id number] [address] [place] [address] October, [facility] [address] [place] [id number] [address] [place] [address] October, Pain in thoracic spine 724.1 and Tachycardia 785.0 [facility] [address] [id number] [address] [place] [address] October, [facility] [address] [id number] [address] [place] [address] October, [facility] [address] [facility] [id number] [address] [place] [address] 14 Sep, 2014 [facility] [address] [facility] [id number] [address] [place] [address] Sep, [facility] [address] [id number] [facility] [address] Aug, [facility] [address] [id number] [address] [place] [address], [place] [address] Aug, [facility] [address] [id number] [address] [place] [address], [place] [address] Aug, [facility] [address] [id number] [address] [place] [address], [place] [address] Aug, [facility] [address] [id number] [address] [place] [address], [place] [address] Aug, [facility] [address] [id number] [address] [place] [address], [place] [address] Aug, [facility] [address] [id number] [address] [place] [address], [place] [address] Aug, [facility] [address] [id number] [address] [place] [address], [place] [address] Aug, [facility] [address] [id number] [address] [place] [address], [place] [address] Aug, [facility] [address] [id number] [address] [place] [address], [place] [address] Aug, [facility] [address] [id number] [address] [place] [address], [place] [address] Aug, [facility] [address] [id number] [address] [place] [address], [place] [address] Aug, 2014 [facility] [address] [id number] [address] [place] [address], [place] [address] Jul, [facility] [address] [id number] [address] [place] [address], [place] [address] Jul, [facility] [address] [id number] [address] [place] [address], [place] [address] Jul, [facility] [address] [id number] [address] [place] [address], [place] [address] Jul, [facility] [address] [id number] [address] [place] [address], [place] [address] 23 Jul, 2014 [facility] [address] [id number] [address] [place] [address], [place] [address] 23 Jul, 2014 [facility] [address] [id number] [address] [place] [address], [place] [address] 23 Jul, 2014 [facility] [address] [id number] [address] [place] [address], [place] [address] 23 Jul, 2014 [facility] [address] [id number] [address] [place] [address], [place] [address] 20 Jul, 2014 [facility] [address] [id number] [address] [place] [address], [place] [address] 20 Jul, 2014 [facility] [address] [id number] [address] [place] [address], [place] [address] 19 Jul, 2014 [facility] [address] [id number] [address] [place] [address], [place] [address] 19 Jul, 2014 [facility] [address] [id number] [address] [place] [address], [place] [address] 17 Jul, 2014 [facility] [address] [id number] [address] [place] [address], [place] [address] 17 Jul, 2014 [facility] [address] [id number] [address] [place] [address], [place] [address] 16 Jul, 2014 [facility] [address] [id number] [address] [place] [address], [place] [address] 16 Jul, 2014 [facility] [address] [id number] [address] [place] [address], [place] [address] 16 Jul, 2014 [facility] [address] [id number] [address] [place] [address] 16 Jul, 2014 [facility] [address] [id number] [address] [place] [address] 13 Jul, 2014 [facility] [address] [id number] [address] [place] [address], [place] [address] Jul, [facility] [address] [id number] [address] [place] [address], [place] [address] Jul, [facility] [address] [id number] [address] [place] [address], [place] [address] Jul, 2014 [facility] [address] [id number] [address] [place] [address], [place] [address] Jul, 2014 [facility] [address] [id number] [address] [place] [address], [place] [address] Jul, [facility] [address] [id number] [address] [place] [address], [place] [address] Jul, [facility] [address] [id number] [address] [place] [address], [place] [address] Jul, [facility] [address] [id number] [address] [place] [address], [place] [address] Jul, [facility] [address] [id number] [address] [place] [address], [place] [address] Jul, [facility] [address] [id number] [address] [place] [address], [place] [address] Jul, [facility] [address] [id number] [address] [place] [address], [place] [address] Jul, [facility] [address] [id number] [address] [place] [address], [place] [address] Jun, [facility] [address] [id number] [address] [place] [address], [place] [address] Jun, [facility] [address] [id number] [address] [place] [address], [place] [address] Jun, [facility] [address] [id number] [address] [place] [address], [place] [address] Jun, [facility] [address] [id number] [address] [place] [address], [place] [address] Jun, [facility] [address] [id number] [address] [place] [address], [place] [address] Jun, [facility] [address] [id number] [address] [place] [address], [place] [address] Jun, [facility] [address] [id number] [address] [place] [address], [place] [address] Jun, [facility] [address] [id number] [address] [place] [address], [place] [address] Jun, [facility] [address] [id number] [address] [place] [address], [place] [address] Jun, [facility] [address] [id number] [address] [place] [address], [place] [address] Jun, [facility] [address] [id number] [address] [place] [address], [place] [address] Jun, [facility] [address] [id number] [address] [place] [address], [place] [address] Jun, [facility] [address] [id number] [address] [place] [address], [place] [address] Jun, [facility] [address] [id number] [address] [place] [address], [place] [address] Jun, [facility] [address] [id number] [address] [place] [address], [place] [address] Jun, [facility] [address] [id number] [address] [place] [address], [place] [address] Jun, [facility] [address] [id number] [address] [place] [address], [place] [address] Jun, [facility] [address] [id number] [address] [place] [address], [place] [address] Jun, [facility] [address] [id number] [address] [place] [address], [place] [address] Jun, [facility] [address] [id number] [address] [place] [address], [place] [address] May, [facility] [address] [id number] [address] [place] [address], [place] [address] May, [facility] [address] [id number] [address] [place] [address], [place] [address] May, [facility] [address] [id number] [address] [place] [address], [place] [address] May, [facility] [address] [id number] [address] [place] [address], [place] [address] May, [facility] [address] [id number] [address] [place] [address], [place] [address] May, [facility] [address] [id number] [address] [place] [address], [place] [address] May, [facility] [address] [id number] [address] [place] [address], [place] [address] May, [facility] [address] [id number] [address] [place] [address], [place] [address] May, [facility] [address] [id number] [address] [place] [address], [place] [address] May, [facility] [address] [id number] [address] [place] [address], [place] [address] May, [facility] [address] [id number] [address] [place] [address], [place] [address] 18 May, 2014 [facility] [address] [id number] [address] [place] [address], [place] [address] 18 May, 2014 [facility] [address] [id number] [address] [place] [address], [place] [address] 17 May, 2014 [facility] [address] [id number] [address] [place] [address], [place] [address] 16 May, 2014 [facility] [address] [id number] [address] [place] [address], [place] [address] 16 May, 2014 [facility] [address] [id number] [address] [place] [address], [place] [address] 15 May, 2014 [facility] [address] [id number] [address] [place] [address], [place] [address] 15 May, 2014 [facility] [address] [id number] [address] [place] [address], [place] [address] May, [facility] [address] [id number] [address] [place] [address], [place] [address] May, [facility] [address] [id number] [address] [place] [address], [place] [address] May, [facility] [address] [id number] [address] [place] [address], [place] [address] May, [facility] [address] [id number] [address] [place] [address], [place] [address] May, [facility] [address] [id number] [address] [place] [address], [place] [address] May, [facility] [address] [id number] [address] [place] [address], [place] [address] May, [facility] [address] [id number] [address] [place] [address], [place] [address] May, [facility] [address] [id number] [address] [place] [address], [place] [address] May, [facility] [address] [id number] [address] [place] [address], [place] [address] May, [facility] [address] [id number] [address] [place] [address], [place] [address] May, [facility] [address] [id number] [address] [place] [address], [place] [address] May, [facility] [address] [id number] [address] [place] [address], [place] [address] May, [facility] [address] [id number] [address] [place] [address], [place] [address] May, [facility] [address] [id number] [address] [place] [address], [place] [address] May, [facility] [address] [id number] [address] [place] [address], [place] [address] May, [facility] [address] [id number] [address] [place] [address], [place] [address] Apr, [facility] [address] [id number] [address] [place] [address], [place] [address] Apr, [facility] [address] [id number] [address] [place] [address], [place] [address] Apr, [facility] [address] [id number] [address] [place] [address], [place] [address] Apr, [facility] [address] [id number] [address] [place] [address], [place] [address] Apr, [facility] [address] [id number] [address] [place] [address], [place] [address] Apr, [facility] [address] [id number] [address] [place] [address], [place] [address] Apr, [facility] [address] [id number] [address] [place] [address], [place] [address] Apr, [facility] [address] [id number] [address] [place] [address], [place] [address] Apr, [facility] [address] [id number] [address] [place] [address], [place] [address] Apr, [facility] [address] [id number] [address] [place] [address], [place] [address] Mar, [facility] [address] [id number] [address] [place] [address], [place] [address] Mar, [facility] [address] [id number] [address] [place] [address] [address] Mar, [facility] [address] [id number] [address] [place] [address], [place] [address] 31 Mar, 2013 [facility] [address] [id number] [address] [place] [address], [place] [address] Mar, [facility] [address] [id number] [address] [place] [address], [place] [address] 30 Mar, 2014 [facility] [address] [id number] [address] [place] [address], [place] [address] Mar, [facility] [address] [id number] [address] [place] [address], [place] [address] Mar, [facility] [address] [id number] [address] [place] [address], [place] [address] Mar, [facility] [address] [id number] [address] [place] [address], [place] [address] Mar, [facility] [address] [id number] [address] [place] [id number] Mar, [facility] [address] [id number] [address] [place] [id number] Mar, [facility] [address] [id number] [address] [place] [id number] Mar, [facility] [address] [id number] [address] [place] [id number] Mar, 2013 [facility] [address] [id number] [address] [place] [id number] Mar, 2013 [facility] [address] [id number] [address] [place] [id number] Mar, [facility] [address] [id number] [address] [place] [id number] Mar, [facility] [address] [id number] [address] [place] [id number] Mar, 2013 [facility] [address] [id number] [address] [place] [address], [place] [address] 02 Mar, 2013 [facility] [address] [id number] [address] [place] [address], [place] [address] 02 Mar, 2013 [facility] [address] [id number] [address] [place] [address], [place] [address] 05 Sep, 2013 [facility] [address] [id number] [address] [place] [address], [place] [id number] 05 Sep, 2013 [facility] [address] [id number] [address] [place] [address], [place] [id number] 04 Sep, 2013 [facility] [address] [id number] [address] [place] [address], [place] [address] 04 Sep, 2013 [facility] [address] [id number] [address] [place] [address], [place] [id number] 03 Feb, 2013 [facility] [address] [id number] [address] [place] [address], [place] [address] 03 Feb, 2013 [facility] [address] [id number] [address] [place] [address], [place] [id number] 02 Feb, 2013 [facility] [address] [id number] [address] [place] [address], [place] [address] Feb, 2013 [facility] [address] [id number] [address] [place] [address], [place] [address] 02 Feb, 2013 [facility] [address] [id number] [address] [place] [address], [place] [address] Feb, 2013 [facility] [address] [id number] [address] [place] [address], [place] [address] Jan, [facility] [address] [id number] [address] [place] [address], [place] [address] Jan, [facility] [address] [id number] [address] [place] [address], [place] [address] Jan, [facility] [address] [id number] [address] [place] [address], [place] [address] Jan, [facility] [address] [id number] [facility] [place] [address] Jan, [facility] [address] [id number] [address] [place] [address], [place] [address] Jan, [facility] [address] [id number] [address] [place] [address], [place] [address] Jan, [facility] [address] [id number] [address] [place] [address], [place] [address] Jan, [facility] [address] [id number] [address] [place] [address], [place] [address] Jan, [facility] [address] [id number] [address] [place] [address], [place] [address] Jan, [facility] [address] [id number] [address] [place] [address], [place] [address] Jan, [facility] [address] [id number] [address] [place] [address], [place] [address] Jan, [facility] [address] [id number] [address] [place] [address], [place] [address] Dec, [facility] [address] [id number] [address] [place] [address], [place] [address] Dec, [facility] [address] [id number] [address] [place] [address], [place] [address] Dec, [facility] [address] [address] [id number] [address] [place] [address], [place] [address] Dec, [facility] [address] [id number] [address] [place] [address], [place] [address] Dec, [facility] [address] [id number] [address] [place] [address], [place] [address] Dec, [facility] [address] [id number] [address] [place] [address], [place] [address] Dec, [facility] [address] [id number] [address] [place] [address], [place] [address] Dec, [facility] [address] [id number] [facility] [place] [address] Dec, [facility] [address] [id number] [address] [place] [address], [place] [address] Dec, [facility] [address] [id number] [address] [place] [address], [place] [address] Dec, [facility] [address] [id number] [address] [place] [address], [place] [address] Dec, [facility] [address] [id number] [address] [place] [address], [place] [address] Nov, [facility] [address] [id number] [address] [place] [address], [place] [address] Nov, [facility] [address] [id number] [address] [place] [address], [place] [address] Nov, [facility] [address] [id number] [address] [place] [address], [place] [address] Nov, [facility] [address] [id number] [address] [place] [address], [place] [address] Nov, [facility] [address] [id number] [address] [place] [address], [place] [address] Nov, [facility] [address] [id number] [address] [place] [address], [place] [address] Nov, [facility] [address] [id number] [address] [place] [address], [place] [address] Nov, [facility] [address] [id number] [address] [place] [address], [place] [address] Nov, [facility] [address] [id number] [address] [place] [address], [place] [address] Nov, [facility] [address] [id number] [address] [place] [address], [place] [address] Nov, [facility] [address] [id number] [facility] [place] [address] Nov, [facility] [address] [id number] [address] [place] [address], [place] [address] Nov, [facility] [address] [id number] [address] [place] [address], [place] [address] Nov, [facility] [address] [id number] [address] [place] [address], [place] [address] October, [facility] [address] [id number] [address] [place] [address], [place] [address] October, [facility] [address] [id number] [address] [place] [address], [place] [address] October, [facility] [address] [id number] [address] [place] [address], [place] [address] October, [facility] [address] [id number] [address] [place] [address], [place] [address] October, [facility] [address] [id number] [address] [place] [address], [place] [address] October, [facility] [address] [id number] [address] [place] [address], [place] [address] October, [facility] [address] [id number] [address] [place] [address], [place] [address] October, [facility] [address] [id number] [address] [place] [address], [place] [address] October, [facility] [address] [id number] [address] [place] [address], [place] [address] October, [facility] [address] [id number] [address] [place] [address], [place] [address] October, [facility] [address] [id number] [address] [place] [address], [place] [address] October, [facility] [address] [id number] [address] [place] [address], [place] [address] Sep, [facility] [address] [id number] [facility] [place] [address] Sep, [facility] [address] [id number] [address] [place] [address], [place] [address] Sep, [facility] [address] [id number] [facility] [place] [address] Sep, [facility] [address] [id number] [address] [place] [address], [place] [address] Sep, [facility] [address] [id number] [address] [place] [address], [place] [address] Sep, [facility] [address] [id number] [address] [place] [address], [place] [address] Aug, [facility] [address] [id number] [address] [place] [address], [place] [address] Aug, [facility] [address] [id number] [address] [place] [address], [place] [address] Aug, [facility] [address] [id number] [address] [place] [address], [place] [address] Aug, [facility] [address] [id number] [address] [place] [address], [place] [address] Aug, [facility] [address] [id number] [address] [place] [address], [place] [address] Aug, [facility] [address] [id number] [address] [place] [address], [place] [address] Jul, [facility] [address] [id number] [address] [place] [address], [place] [address] Jul, [facility] [address] [id number] [address] [place] [address], [place] [address] Jul, [facility] [address] [id number] [address] [place] [address], [place] [address] Jul, [facility] [address] [id number] [address] [place] [address], [place] [address] 13 Jul, 2013 [facility] [address] [id number] [address] [place] [address], [place] [address] Jul, [facility] [address] [id number] [address] [place] [address], [place] [address] Jul, [facility] [address] [id number] [address] [place] [address], [place] [address] Jul, [facility] [address] [id number] [address] [place] [address], [place] [address] Jul, [facility] [address] [id number] [address] [place] [address], [place] [address] Jul, [facility] [address] [id number] [address] [place] [address], [place] [address] Jun, [facility] [address] [id number] [address] [place] [address], [place] [address] Jun, [facility] [address] [id number] [address] [place] [address], [place] [address] Jun, [facility] [address] [id number] [address] [place] [address], [place] [address] Jun, [facility] [address] [id number] [address] [place] [address], [place] [address] Jun, [facility] [address] [id number] [address] [place] [address], [place] [address] Jun, [facility] [address] [id number] [address] [place] [address], [place] [address] Jun, [facility] [address] [id number] [address] [place] [address], [place] [address] Jun, [facility] [address] [id number] [address] [place] [address], [place] [address] May, [facility] [address] [id number] [address] [place] [address], [place] [address] May, [facility] [address] [id number] [address] [place] [address], [place] [address] May, [facility] [address] [id number] [address] [place] [address], [place] [address] May, [facility] [address] [id number] [address] [place] [address], [place] [address] May, [facility] [address] [id number] [address] [place] [address], [place] [address] May, [facility] [address] [id number] [address] [place] [address], [place] [address] May, [facility] [address] [id number] [address] [place] [address], [place] [address] May, [facility] [address] [id number] [address] [place] [address], [place] [address] Apr, [facility] [address] [id number] [address] [place] [address] Apr, [facility] [address] [id number] [address] [place] [address], [place] [address] Apr, [facility] [address] [id number] [address] [place] [address] Apr, [facility] [address] [id number] [address] [place] [address] Apr, [facility] [address] [id number] [address] [place] [address] Apr, [facility] [address] [id number] [address] [place] [address], [place] [address] Mar, [facility] [address] [id number] [address] [place] [address] Mar, [facility] [address] [id number] [address] [place] [address], [place] [address] Mar, [facility] [address] [id number] [address] [place] [address], [place] [address] Mar, [facility] [address] [id number] [address] [place] [address], [place] [address] Mar, [facility] [address] [id number] [address] [place] [address], [place] [address] Mar, [facility] [address] [id number] [address] [place] [address], [place] [address] Mar, [facility] [address] [id number] [address] [place] [address], [place] [address] 30 Feb, 2012 [facility] [address] [id number] [address] [place] [address], [place] [address] 30 Feb, 2013 [facility] [address] [id number] [address] [place] [address], [place] [address] 27 Feb, 2013 [facility] [address] [id number] [address] [place] [address], [place] [address] Feb, 2012 [facility] [address] [id number] [address] [place] [address], [place] [address] Feb, [facility] [address] [id number] [address] [place] [address], [place] [address] Feb, [facility] [address] [id number] [address] [place] [address], [place] [address] Jan, [facility] [address] [id number] [address] [place] [address], [place] [address] Jan, [facility] [address] [id number] [address] [place] [address], [place] [address] Jan, [facility] [address] [id number] [address] [place] [address], [place] [address] Jan, [facility] [address] [id number] [address] [place] [address], [place] [address] Jan, [facility] [address] [id number] [address] [place] [address], [place] [address] Jan, [facility] [address] [id number] [address] [place] [address], [place] [address] Jan, [facility] [address] [id number] [address] [place] [address], [place] [address] Jan, [facility] [address] [id number] [address] [place] [address], [place] [address] Jan, [facility] [address] [id number] [address] [place] [address], [place] [address] Dec, [facility] [address] [id number] [address] [place] [address], [place] [address] Dec, [facility] [address] [id number] [address] [place] [address], [place] [address] Dec, [facility] [address] [id number] [address] [place] [address], [place] [address] Dec, [facility] [address] [id number] [address] [place] [address], [place] [address] Dec, [facility] [address] [id number] [address] [place] [address], [place] [address] Dec, [facility] [address] [id number] [address] [place] [address], [place] [address] Dec, [facility] [address] [id number] [address] [place] [address], [place] [address] Dec, [facility] [address] [id number] [address] [place] [address], [place] [address] Dec, [facility] [address] [id number] [address] [place] [address], [place] [address] Dec, [facility] [address] [id number] [address] [place] [address], [place] [address] Dec, [facility] [address] [id number] [address] [place] [address], [place] [address] Dec, [facility] [address] [id number] [address] [place] [address], [place] [address] Dec, [facility] [address] [id number] [address] [place] [address], [place] [address] Nov, [facility] [address] [id number] [address] [place] [address], [place] [address] Nov, [facility] [address] [id number] [address] [place] [address], [place] [address] Nov, [facility] [address] [id number] [address] [place] [address], [place] [address] Nov, [facility] [address] [id number] [address] [place] [address], [place] [address] October, [facility] [address] [id number] [address] [place] [address], [place] [address] October, [facility] [address] [id number] [address] [place] [address], [place] [address] October, [facility] [address] [id number] [address] [place] [address], [place] [address] October, [facility] [address] [id number] [address] [place] [address], [place] [address] October, [facility] [address] [id number] [address] [place] [address], [place] [address] October, [facility] [address] [id number] [address] [place] [address], [place] [address] Sep, [facility] [address] [id number] [address] [place] [address], [place] [address] Sep, [facility] [address] [id number] [address] [place] [address], [place] [address] Sep, [facility] [address] [id number] [address] [place] [address], [place] [address] Sep, [facility] [address] [id number] [address] [place] [address], [place] [address] Sep, [facility] [address] [id number] [facility] [place] [address] 16 Sep, 2012 [facility] [address] [id number] [address] [place] [address], [place] [address] 12 Sep, 2012 [facility] [address] [id number] [address] [place] [address], [place] [address] Sep, [facility] [address] [id number] [address] [place] [address], [place] [address] Sep, [facility] [address] [id number] [address] [place] [address], [place] [address] Sep, [facility] [address] [id number] [address] [place] [address], [place] [address] Sep, [facility] [address] [id number] [address] [place] [address], [place] [address] Aug, [facility] [address] [id number] [address] [place] [address], [place] [address] 25 Aug, 2012 [facility] [address] [id number] [address] [place] [address], [place] [address] 25 Aug, 2012 [facility] [address] [id number] [address] [place] [address], [place] [address] 21 Aug, 2012 [facility] [address] [id number] [address] [place] [address], [place] [address] 19 Aug, 2012 [facility] [address] [id number] [address] [place] [address], [place] [address] 18 Aug, 2012 [facility] [address] [id number] [address] [place] [address], [place] [address] 17 Aug, 2012 [facility] [address] [id number] [address] [place] [address], [place] [address] 15 Aug, 2012 [facility] [address] [id number] [address] [place] [address], [place] [address] 15 Aug, 2012 [facility] [address] [id number] [address] [place] [address], [place] [address] Aug, [facility] [address] [id number] [address] [place] [address], [place] [address] Aug, [facility] [address] [id number] [address] [place] [address], [place] [address] Aug, [facility] [address] [id number] [address] [place] [address], [place] [address] Jul, [facility] [address] [id number] [address] [place] [address], [place] [address] Jul, [facility] [address] [id number] [address] [place] [address], [place] [address] Jul, [facility] [address] [id number] [address] [place] [address], [place] [address] Jul, [facility] [address] [id number] [address] [place] [address], [place] [address] Jul, [facility] [address] [id number] [address] [place] [address], [place] [address] Jul, [facility] [address] [id number] [address] [place] [address], [place] [address] Jul, [facility] [address] [id number] [address] [place] [address], [place] [address] Jul, [facility] [address] [id number] [address] [place] [address], [place] [address] Jul, [facility] [address] [id number] [address] [place] [address], [place] [address] Jul, [facility] [address] [id number] [address] [place] [address], [place] [address] May, [facility] [address] [id number] [place] [id number] May, [facility] [address] [id number] [address] [place] [address], [place] [address] May, [facility] [address] [id number] [address] [place] [id number] May, [facility] [address] [facility] [id number] [address] [place] [id number] May, [facility] [address] [facility] [id number] [address] [place] [id number] Apr, [facility] [address] [id number] [place] [id number] Apr, [facility] [address] [facility] [id number] [address] [place] [id number] Apr, [facility] [address] [facility] [id number] [address] [place] [id number] Mar, [facility] [address] [id number] [place] [id number] Mar, [facility] [address] [facility] [id number] [address] [place] [id number] Mar, [facility] [address] [id number] [place] [id number] Feb, [facility] [address] [facility] [id number] [address] [place] [id number] Feb, [facility] [address] [facility] [id number] [address] [place] [id number] Feb, [facility] [place] [address] [id number] [place] [id number] Feb, [facility] [address] [id number] [place] [id number] Feb, [facility] [address] [id number] [place] [id number] Jan, [facility] [address] [id number] [address] [place] [address], [place] [address] Jan, [facility] [address] [id number] [place] [id number] Jan, [facility] [address] [id number] [place] [id number] Jan, [facility] [place] [address] [id number] [place] [id number] Jan, [facility] [address] [facility] [id number] [address] [place] [address], [place] [address] Jan, [facility] [address] [facility] [id number] [address] [place] [address], [place] [address] Jan, [facility] [address] [facility] [id number] [address] [place] [address], [place] [address] Aug, [facility] [place] [address] [id number] [place] [id number] Aug, [facility] [address] [facility] [id number] [address] [place] [address], [place] [address] Jul, [facility] [address] [facility] [id number] [address] [place] [address], [place] [address] Jul, [facility] [address] [facility] [id number] [address] [place] [address], [place] [address] Jul, [facility] [address] [id number] [place] [id number] Jul, [facility] [address] [facility] [id number] [address] [place] [address], [place] [address] Jul, [facility] [address] [id number] [place] [id number] Jul, [facility] [address] [facility] [id number] [address] [place] [address], [place] [address] Jul, [facility] [place] [address] [id number] [place] [id number] Jul, [facility] [place] [address] [id number] [place] [id number] Jul, [facility] [address] [id number] [place] [id number] Jul, [facility] [address] [facility] [id number] [address] [place] [address], [place] [address] May, [facility] [address] [id number] [address] [place] [id number] May, [facility] [address] [id number] [address] [place] [id number] May, [facility] [address] [id number] [address] [place] [id number] Apr, [facility] [address] [id number] [address] [place] [id number] Jan, [facility] [address] [id number] [address] [place] [id number] Jan, [facility] [address] [id number] [address] [place] [id number] Dec, [facility] [address] [id number] [address] [place] [id number] Dec, [facility] [address] [id number] [address] [place] [id number] May, [facility] [address] [id number] [address] [place] [id number] Mar, [facility] [address] [id number] [address] [place] [id number] Mar, [facility] [address] [id number] [address] [place] [id number] Jan, IMMUNIZATIONS No Known Immunizations SOCIAL HISTORY Never Assessed REASON FOR VISIT PLAN OF CARE VITAL SIGNS MEDICATIONS Unknown Medications RESULTS No Results PROCEDURES Procedure Date Ordered Result Body Site PROTHROMBIN TIME Feb 25, 2014 INSTRUCTIONS MEDICATIONS ADMINISTERED No Known Medications [...]
--- OUTSIDE RECORDS SUMMARY | 2020-01-28 12:47 | XMS REPORT ---
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 Active 595169521 Problem History of venous thromboembolism V12.51 Active 768086035 Problem Cellulitis of unspecified part of limb L03.119 Active 935877885 Problem Gastroesophageal reflux disease without esophagitis K21.9 Active 207961564 Problem History of pulmonary embolism Z86.711 Active 438056623 Problem Pseudotumor cerebri G93.2 Active 33501398 Problem History of DVT (deep vein thrombosis) Z86.718 Active 925296980 ALLERGIES No Information ENCOUNTERS Encounter Location Date Diagnosis [place] [id number] [facility] [id number] [address] [place] [address] Apr, [facility] (current) use of 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 Z79.01 [facility] [address] [facility] [id number] [address] [place] [address] Apr, [facility] 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.01 [facility] [address] [facility] [id number] [address] [place] [address] Apr, Cellulitis of unspecified pa rt of limb L03.119 ; Allergic contact dermatitis due to adhesives L23.1 and Chronic pain syndrome G89.4 [facility] [address] [facility] [id number] [address] [place] [address] Apr, [facility] [address] [place] [id number] [address] [place] [address] Apr, 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.01 ; Cellulitis of unspecified part of limb L03.119 ; Chronic pain syndrome G89.4 and Anxiety F41.9 [place] [address] [address] [place] [id number] [address] [place] [address] 16 Apr, 2015 [place] [address] [address] Apr, [place] [address] [address] Mar, [place] [address] [address] Mar, [place] [address] [address] Mar, Sore throat J02.9 ; Gastroes ophageal reflux disease without esophagitis K21.9 ; Pseudotumor cerebri G93.2 ; Chronic pain syndrome G89.4 ; Choriocarcinoma C58 ; History of pulmonary embolism Z86.711 ; History of DVT (deep vein thrombosis) Z86.718 ; Anxiety F41.9 and Tachycardia R00.0 [place] [address] [address] [place] [id number] [address] [place] [address] Feb, Anxiety 300.00 and Chronic p ain 338.29 [place] [id number] [place] [address] Feb, [place] [address] [address] [place] [id number] [address] [place] [address] Feb, [place] [address] [address] Jan, [facility] current use of ant icoagulant therapy V58.61 and Dysuria 788.1 [place] [address] [address] [place] [id number] [address] [place] [address] Jan, Dysuria 788.1 [place] [address] [place] [id number] [address] [place] [address] Jan, Anxiety 300.00 and Chronic p ain 338.29 [facility] [address] [address] Jan, [place] [address] [address] Jan, [place] [address] [address] Jan, [place] [address] [address] Dec, Weakness 780.79 [place] [address] [address] Dec, 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 use of ant icoagulant therapy V58.61 [place] [address] [address] Dec, Palpitations 785.1 ; Tremor 781.0 ; Weakness 780.79 ; 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 use of anticoagulant therapy V58.61 and Yeast vaginitis 112.1 [place] [address] [address] Dec, [place] [address] [address] Dec, Cervicalgia 723.1 ; Tachycar yoseph 785.0 ; Pseudotumor cerebri 348.2 and History of venous thromboembolism V12.51 [place] [address] [address] Nov, [place] [address] [address] Nov, [place] [address] [address] Nov, Tachycardia 785.0 ; Pseudotu mor cerebri 348.2 ; Anxiety 300.00 and History of venous thromboembolism V12.51 [facility] [address] [id number] [address] [place] [address] Nov, [facility] [address] [id number] [address] [place] [address] 18 Nov, 2014 [facility] [address] [id number] [address] [place] [address] 16 Nov, 2014 [facility] [address] [id number] [address] [place] [address] Nov, [facility] [address] [id number] [address] [place] [address] Nov, [facility] [address] [id number] [address] [place] [address] Nov, [facility] [address] [id number] [address] [place] [address] Nov, [facility] [address] [id number] [address] [place] [address] October, [facility] [address] [id number] [address] [place] [address] October, [facility] [address] [facility] [id number] [address] [place] [address] October, Pain in thoracic spine 724.1 and Tachycardia 785.0 [facility] [address] [id number] [address] [place] [address] October, [facility] [address] [id number] [address] [place] [address] October, [facility] [address] [id number] [address] [place] [address] 14 Sep, 2014 [facility] [address] [id number] [address] [place] [address] Sep, [facility] [address] [id number] [facility] [place] [address] Aug, [facility] [address] [id number] [address] [place] [address], [place] [address] Aug, [facility] [address] [id number] [facility] [place] [address] Aug, [facility] [address] [id number] [address] [place] [address], [place] [address] Aug, [facility] [address] [id number] [address] [place] [address], [place] [address] Aug, [facility] [address] [id number] [address] [place] [address], [place] [address] Aug, [facility] [address] [id number] [address] [place] [address], [place] [address] Aug, [facility] [address] [id number] [address] [place] [address], [place] [address] Aug, [facility] [address] [id number] [address] [place] [address], [place] [address] Aug, [facility] [address] [id number] [address] [place] [address], [place] [address] Aug, [facility] [address] [id number] [address] [place] [address], [place] [address] Aug, [facility] [address] [id number] [address] [place] [address], [place] [address] Aug, [facility] [address] [id number] [address] [place] [address], [place] [address] Jul, [facility] [address] [id number] [address] [place] [address], [place] [address] Jul, [facility] [address] [id number] [address] [place] [address], [place] [address] Jul, [facility] [address] [id number] [address] [place] [address], [place] [address] Jul, [facility] [address] [id number] [address] [place] [address], [place] [address] 23 Jul, 2014 [facility] [address] [id number] [address] [place] [address], [place] [address] 23 Jul, 2014 [facility] [address] [id number] [address] [place] [address], [place] [address] 23 Jul, 2014 [facility] [address] [id number] [address] [place] [address], [place] [address] 23 Jul, 2014 [facility] [address] [id number] [address] [place] [address], [place] [address] 20 Jul, 2014 [facility] [address] [id number] [address] [place] [address], [place] [address] 20 Jul, 2014 [facility] [address] [id number] [address] [place] [address], [place] [address] 19 Jul, 2014 [facility] [address] [id number] [address] [place] [address], [place] [address] 19 Jul, 2014 [facility] [address] [id number] [address] [place] [address], [place] [address] 17 Jul, 2014 [facility] [address] [id number] [address] [place] [address], [place] [address] 17 Jul, 2014 [facility] [address] [id number] [address] [place] [address], [place] [address] 16 Jul, 2014 [facility] [address] [id number] [address] [place] [address], [place] [address] 16 Jul, 2014 [facility] [address] [id number] [address] [place] [address], [place] [address] 16 Jul, 2014 [facility] [address] [id number] [address] [place] [address], [place] [address] 16 Jul, 2014 [facility] [address] [id number] [address] [place] [address], [place] [address] 13 Jul, 2014 [facility] [address] [id number] [address] [place] [address], [place] [address] Jul, 2014 [facility] [address] [id number] [address] [place] [address], [place] [address] Jul, 2014 [facility] [address] [id number] [address] [place] [address], [place] [address] Jul, 2014 [facility] [address] [id number] [address] [place] [address], [place] [address] Jul, 2014 [facility] [address] [id number] [address] [place] [address], [place] [address] Jul, 2014 [facility] [address] [id number] [address] [place] [address], [place] [address] Jul, [facility] [address] [id number] [address] [place] [address], [place] [address] Jul, [facility] [address] [id number] [address] [place] [address], [place] [address] Jul, [facility] [address] [id number] [address] [place] [address], [place] [address] Jul, [facility] [address] [id number] [address] [place] [address], [place] [address] Jul, [facility] [address] [id number] [address] [place] [address], [place] [address] Jul, [facility] [address] [id number] [address] [place] [address] Jun, [facility] [address] [id number] [address] [place] [address], [place] [address] Jun, [facility] [address] [id number] [address] [place] [address], [place] [address] Jun, [facility] [address] [id number] [address] [place] [address], [place] [address] Jun, [facility] [address] [id number] [address] [place] [address], [place] [address] Jun, [facility] [address] [id number] [address] [place] [address], [place] [address] Jun, [facility] [address] [id number] [address] [place] [address], [place] [address] Jun, [facility] [address] [id number] [address] [place] [address], [place] [address] Jun, [facility] [address] [id number] [address] [place] [address], [place] [address] Jun, [facility] [address] [id number] [address] [place] [address], [place] [address] Jun, [facility] [address] [id number] [address] [place] [address], [place] [address] Jun, [facility] [address] [id number] [address] [place] [address], [place] [address] Jun, [facility] [address] [id number] [address] [place] [address], [place] [address] Jun, [facility] [address] [id number] [address] [place] [address], [place] [address] Jun, [facility] [address] [id number] [address] [place] [address], [place] [address] Jun, [facility] [address] [id number] [address] [place] [address], [place] [address] Jun, [facility] [address] [id number] [address] [place] [address], [place] [address] Jun, [facility] [address] [id number] [address] [place] [address], [place] [address] Jun, [facility] [address] [id number] [address] [place] [address], [place] [address] Jun, [facility] [address] [id number] [address] [place] [address], [place] [address] Jun, [facility] [address] [id number] [address] [place] [address], [place] [address] May, [facility] [address] [id number] [address] [place] [address], [place] [address] May, [facility] [address] [id number] [address] [place] [address], [place] [address] May, [facility] [address] [id number] [address] [place] [address], [place] [address] May, [facility] [address] [id number] [address] [place] [address], [place] [address] May, [facility] [address] [id number] [address] [place] [address], [place] [address] May, [facility] [address] [id number] [address] [place] [address], [place] [address] May, [facility] [address] [id number] [address] [place] [address], [place] [address] May, [facility] [address] [id number] [address] [place] [address], [place] [address] May, [facility] [address] [id number] [address] [place] [address], [place] [address] May, [facility] [address] [id number] [address] [place] [address], [place] [address] May, [facility] [address] [id number] [address] [place] [address], [place] [address] 18 May, 2014 [facility] [address] [id number] [address] [place] [address], [place] [address] 18 May, 2014 [facility] [address] [id number] [address] [place] [address], [place] [address] 17 May, 2014 [facility] [address] [id number] [address] [place] [address], [place] [address] 16 May, 2014 [facility] [address] [id number] [address] [place] [address], [place] [address] 16 May, 2014 [facility] [address] [id number] [address] [place] [address], [place] [address] May, [facility] [address] [id number] [address] [place] [address], [place] [address] May, [facility] [address] [id number] [address] [place] [address], [place] [address] May, [facility] [address] [id number] [address] [place] [address], [place] [address] May, [facility] [address] [id number] [address] [place] [address], [place] [address] May, [facility] [address] [id number] [address] [place] [address], [place] [address] May, [facility] [address] [id number] [address] [place] [address], [place] [address] May, [facility] [address] [id number] [address] [place] [address], [place] [address] May, [facility] [address] [id number] [address] [place] [address], [place] [address] May, [facility] [address] [id number] [address] [place] [address], [place] [address] May, [facility] [address] [id number] [address] [place] [address], [place] [address] May, [facility] [address] [id number] [address] [place] [address], [place] [address] May, [facility] [address] [id number] [address] [place] [address], [place] [address] May, [facility] [address] [id number] [address] [place] [address], [place] [address] May, [facility] [address] [id number] [address] [place] [address], [place] [address] May, [facility] [address] [id number] [address] [place] [address], [place] [address] May, [facility] [address] [id number] [address] [place] [address], [place] [address] May, [facility] [address] [id number] [address] [place] [address], [place] [address] May, [facility] [address] [id number] [address] [place] [address], [place] [address] Apr, [facility] [address] [id number] [address] [place] [address], [place] [address] Apr, [facility] [address] [id number] [address] [place] [address], [place] [address] Apr, [facility] [address] [id number] [address] [place] [address], [place] [address] Apr, [facility] [address] [id number] [address] [place] [address], [place] [address] Apr, [facility] [address] [id number] [address] [place] [address], [place] [address] Apr, [facility] [address] [id number] [address] [place] [address], [place] [address] Apr, [facility] [address] [id number] [address] [place] [address], [place] [address] Apr, [facility] [address] [id number] [address] [place] [address], [place] [address] Apr, [facility] [address] [id number] [address] [place] [address], [place] [address] Apr, [facility] [address] [id number] [address] [place] [address], [place] [address] Mar, [facility] [address] [id number] [address] [place] [id number], [place] [address] Mar, [facility] [address] [id number] [address] [place] [id number], [place] [address] Mar, [facility] [address] [id number] [address] [place] [id number], [place] [address] 31 Mar, 2013 [facility] [address] [id number] [address] [place] [id number], [place] [address] Mar, 2013 [facility] [address] [id number] [address] [place] [id number], [place] [address] 30 Mar, 2013 [facility] [address] [id number] [address] [place] [id number], [place] [address] Mar, 2013 [facility] [address] [id number] [address] [place] [id number], [place] [address] Mar, 2013 [facility] [address] [id number] [address] [place] [id number], [place] [address] Mar, [facility] [address] [id number] [address] [place] [id number], [place] [address] Mar, [facility] [address] [id number] [address] [place] [id number] Mar, [facility] [address] [id number] [address] [place] [address], [place] [address] Mar, [facility] [address] [id number] [address] [place] [id number] Mar, [facility] [address] [id number] [address] [place] [address] Mar, [facility] [address] [id number] [address] [place] [address] Mar, [facility] [address] [id number] [address] [place] [id number] Mar, [facility] [address] [id number] [address] [place] [id number] Mar, [facility] [address] [id number] [address] [place] [id number] Mar, [facility] [address] [id number] [address] [place] [id number] 02 Mar, 2013 [facility] [address] [id number] [address] [place] [id number], [place] [address] 02 Mar, 2013 [facility] [address] [id number] [address] [place] [id number], [place] [id number] 05 Sep, 2013 [facility] [address] [id number] [address] [place] [id number], [place] [address] 05 Sep, 2013 [facility] [address] [id number] [address] [place] [id number], [place] [address] 04 Sep, 2013 [facility] [address] [id number] [address] [place] [id number], [place] [id number] 04 Sep, 2013 [facility] [address] [id number] [address] [place] [id number], [place] [address] 03 Feb, 2013 [facility] [address] [id number] [address] [place] [id number], [place] [address] 03 Feb, 2013 [facility] [address] [id number] [address] [place] [id number], [place] [address] Feb, 2013 [facility] [address] [id number] [address] [place] [id number], [place] [address] Feb, 2013 [facility] [address] [id number] [address] [place] [id number], [place] [address] Feb, 2013 [facility] [address] [id number] [address] [place] [id number], [place] [address] Feb, 2013 [facility] [address] [id number] [address] [place] [address], [place] [address] Jan, [facility] [address] [id number] [address] [place] [address], [place] [address] Jan, [facility] [address] [id number] [address] [place] [address], [place] [address] Jan, [facility] [address] [id number] [address] [place] [address], [place] [address] Jan, [facility] [address] [id number] [facility] [place] [address] Jan, [facility] [address] [id number] [facility] [place] [address] Jan, [facility] [address] [id number] [facility] [place] [address] Jan, [facility] [address] [id number] [facility] [place] [address] Jan, [facility] [address] [id number] [facility] [place] [address] Jan, [facility] [address] [id number] [address] [place] [address], [place] [address] Jan, [facility] [address] [id number] [address] [place] [address], [place] [address] Jan, [facility] [address] [id number] [address] [place] [address], [place] [address] Jan, [facility] [address] [id number] [address] [place] [address], [place] [address] Dec, [facility] [address] [id number] [address] [place] [address], [place] [address] Dec, [facility] [address] [id number] [address] [place] [address], [place] [address] Dec, [facility] [address] [id number] [address] [place] [address], [place] [address] Dec, [facility] [address] [id number] [address] [place] [address], [place] [address] Dec, [facility] [address] [id number] [address] [place] [address], [place] [address] Dec, [facility] [address] [id number] [address] [place] [address], [place] [address] Dec, [facility] [address] [id number] [address] [place] [address], [place] [address] Dec, [facility] [address] [id number] [facility] [place] [address] Dec, 2013 [facility] [address] [id number] [address] [place] [address], [place] [address] Dec, [facility] [address] [id number] [address] [place] [address], [place] [address] Dec, [facility] [address] [id number] [address] [place] [address], [place] [address] Dec, [facility] [address] [id number] [address] [place] [address], [place] [address] Nov, [facility] [address] [id number] [address] [place] [address], [place] [address] Nov, [facility] [address] [id number] [address] [place] [address], [place] [address] Nov, [facility] [address] [id number] [address] [place] [address], [place] [address] Nov, [facility] [address] [id number] [address] [place] [address], [place] [address] Nov, [facility] [address] [id number] [address] [place] [address], [place] [address] Nov, [facility] [address] [id number] [address] [place] [address], [place] [address] Nov, [facility] [address] [id number] [address] [place] [address], [place] [address] Nov, [facility] [address] [id number] [address] [place] [address], [place] [address] Nov, [facility] [address] [id number] [address] [place] [address], [place] [address] Nov, [facility] [address] [id number] [address] [place] [address], [place] [address] Nov, [facility] [address] [id number] [address] [place] [address], [place] [address] Nov, [facility] [address] [id number] [address] [place] [address], [place] [address] Nov, [facility] [address] [id number] [address] [place] [address], [place] [address] Nov, [facility] [address] [id number] [address] [place] [address], [place] [address] October, [facility] [address] [id number] [address] [place] [address], [place] [address] October, [facility] [address] [id number] [address] [place] [address], [place] [address] October, [facility] [address] [id number] [address] [place] [address], [place] [address] October, [facility] [address] [id number] [address] [place] [address], [place] [address] October, [facility] [address] [id number] [address] [place] [address], [place] [address] October, [facility] [address] [id number] [address] [place] [address], [place] [address] October, [facility] [address] [id number] [address] [place] [address], [place] [address] October, [facility] [address] [id number] [address] [place] [address], [place] [address] October, [facility] [address] [id number] [address] [place] [address], [place] [address] October, [facility] [address] [id number] [address] [place] [address], [place] [address] October, [facility] [address] [id number] [address] [place] [address], [place] [address] October, [facility] [address] [id number] [address] [place] [address], [place] [address] Sep, [facility] [address] [id number] [address] [place] [address], [place] [address] Sep, [facility] [address] [id number] [address] [place] [address], [place] [address] Sep, [facility] [address] [id number] [address] [place] [address], [place] [address] Sep, [facility] [address] [id number] [address] [place] [address], [place] [address] Sep, [facility] [address] [id number] [address] [place] [address], [place] [address] Sep, [facility] [address] [id number] [address] [place] [address], [place] [address] Aug, [facility] [address] [id number] [address] [place] [address], [place] [address] Aug, [facility] [address] [id number] [address] [place] [address], [place] [address] Aug, [facility] [address] [id number] [address] [place] [address], [place] [address] Aug, [facility] [address] [id number] [address] [place] [address], [place] [address] Aug, [facility] [address] [id number] [address] [place] [address], [place] [address] Aug, [facility] [address] [id number] [address] [place] [address], [place] [address] Jul, [facility] [address] [id number] [address] [place] [address], [place] [address] Jul, [facility] [address] [id number] [address] [place] [address], [place] [address] Jul, [facility] [address] [id number] [address] [place] [address], [place] [address] Jul, [facility] [address] [id number] [address] [place] [address], [place] [address] Jul, [facility] [address] [id number] [address] [place] [address], [place] [address] Jul, [facility] [address] [id number] [address] [place] [address], [place] [address] Jul, [facility] [address] [id number] [address] [place] [address], [place] [address] Jul, [facility] [address] [id number] [address] [place] [address], [place] [address] Jul, [facility] [address] [id number] [address] [place] [address], [place] [address] Jul, [facility] [address] [id number] [address] [place] [address], [place] [address] Jun, [facility] [address] [id number] [address] [place] [address], [place] [address] Jun, [facility] [address] [id number] [address] [place] [address], [place] [address] Jun, [facility] [address] [id number] [address] [place] [address], [place] [address] Jun, [facility] [address] [id number] [address] [place] [address], [place] [address] Jun, [facility] [address] [id number] [address] [place] [address], [place] [address] Jun, [facility] [address] [id number] [address] [place] [address], [place] [address] Jun, [facility] [address] [id number] [address] [place] [address], [place] [address] Jun, [facility] [address] [id number] [address] [place] [address], [place] [address] May, [facility] [address] [id number] [address] [place] [address], [place] [address] May, [facility] [address] [id number] [address] [place] [address], [place] [address] May, [facility] [address] [id number] [address] [place] [address], [place] [address] May, [facility] [address] [id number] [address] [place] [address], [place] [address] May, [facility] [address] [id number] [address] [place] [address], [place] [address] May, [facility] [address] [id number] [address] [place] [address], [place] [address] May, [facility] [address] [id number] [address] [place] [address], [place] [address] May, [facility] [address] [id number] [address] [place] [address], [place] [address] Apr, [facility] [address] [id number] [address] [place] [address] Apr, [facility] [address] [id number] [address] [place] [address], [place] [address] Apr, [facility] [address] [id number] [address] [place] [address] Apr, [facility] [address] [id number] [address] [place] [address] Apr, [facility] [address] [id number] [address] [place] [address] Apr, [facility] [address] [id number] [address] [place] [address] Mar, [facility] [address] [id number] [address] [place] [address] Mar, [facility] [address] [id number] [address] [place] [address] Mar, [facility] [address] [id number] [address] [place] [address] Mar, [facility] [address] [id number] [address] [place] [address], [place] [address] Mar, [facility] [address] [id number] [address] [place] [address], [place] [address] Mar, [facility] [address] [id number] [address] [place] [address], [place] [address] Mar, [facility] [address] [id number] [address] [place] [address], [place] [address] 30 Feb, 2013 [facility] [address] [id number] [address] [place] [address], [place] [address] 30 Feb, 2013 [facility] [address] [id number] [address] [place] [address], [place] [address] Feb, [facility] [address] [id number] [address] [place] [address], [place] [address] Feb, [facility] [address] [id number] [address] [place] [address], [place] [address] Feb, [facility] [address] [id number] [address] [place] [address], [place] [address] Feb, [facility] [address] [id number] [address] [place] [address], [place] [address] Jan, [facility] [address] [id number] [address] [place] [address], [place] [address] Jan, [facility] [address] [id number] [address] [place] [address], [place] [address] Jan, [facility] [address] [id number] [address] [place] [address], [place] [address] Jan, [facility] [address] [id number] [address] [place] [address], [place] [address] Jan, [facility] [address] [id number] [address] [place] [address], [place] [address] Jan, [facility] [address] [id number] [address] [place] [address], [place] [address] Jan, [facility] [address] [id number] [address] [place] [address], [place] [address] Jan, [facility] [address] [id number] [address] [place] [address], [place] [address] Jan, [facility] [address] [id number] [address] [place] [address], [place] [address] Dec, [facility] [address] [id number] [address] [place] [address], [place] [address] Dec, [facility] [address] [id number] [address] [place] [address], [place] [address] Dec, [facility] [address] [id number] [address] [place] [address], [place] [address] Dec, [facility] [address] [id number] [address] [place] [address], [place] [address] Dec, [facility] [address] [id number] [address] [place] [address], [place] [address] Dec, [facility] [address] [id number] [address] [place] [address], [place] [address] Dec, [facility] [address] [id number] [address] [place] [address], [place] [address] Dec, [facility] [address] [id number] [address] [place] [address], [place] [address] Dec, [facility] [address] [id number] [address] [place] [address], [place] [address] Dec, [facility] [address] [id number] [address] [place] [address], [place] [address] Dec, [facility] [address] [id number] [address] [place] [address], [place] [address] Dec, [facility] [address] [id number] [address] [place] [address], [place] [address] Dec, [facility] [address] [id number] [address] [place] [address], [place] [address] Nov, [facility] [address] [id number] [address] [place] [address], [place] [address] Nov, [facility] [address] [id number] [address] [place] [address], [place] [address] Nov, [facility] [address] [id number] [address] [place] [address], [place] [address] Nov, [facility] [address] [id number] [address] [place] [address], [place] [address] October, [facility] [address] [id number] [address] [place] [address], [place] [address] October, [facility] [address] [id number] [address] [place] [address], [place] [address] October, [facility] [address] [id number] [address] [place] [address], [place] [address] October, [facility] [address] [id number] [address] [place] [address], [place] [address] October, [facility] [address] [id number] [address] [place] [address], [place] [address] October, [facility] [address] [id number] [address] [place] [address], [place] [address] Sep, [facility] [address] [id number] [address] [place] [address], [place] [address] Sep, [facility] [address] [id number] [address] [place] [address], [place] [address] Sep, [facility] [address] [id number] [address] [place] [address], [place] [address] Sep, [facility] [address] [id number] [address] [place] [address], [place] [address] Sep, [facility] [address] [id number] [address] [place] [address], [place] [address] 16 Sep, 2012 [facility] [address] [id number] [address] [place] [address], [place] [address] 12 Sep, 2012 [facility] [address] [id number] [address] [place] [address], [place] [address] 08 Sep, 2012 [facility] [address] [id number] [address] [place] [address], [place] [address] Sep, [facility] [address] [id number] [address] [place] [address], [place] [address] Sep, [facility] [address] [id number] [address] [place] [address], [place] [address] Sep, [facility] [address] [id number] [address] [place] [address], [place] [address] Aug, [facility] [address] [id number] [address] [place] [address], [place] [address] 25 Aug, 2012 [facility] [address] [id number] [address] [place] [address], [place] [address] 25 Aug, 2012 [facility] [address] [id number] [address] [place] [address], [place] [address] 21 Aug, 2012 [facility] [address] [id number] [address] [place] [address], [place] [address] 19 Aug, 2012 [facility] [address] [id number] [address] [place] [address], [place] [address] 18 Aug, 2012 [facility] [address] [id number] [address] [place] [address], [place] [address] 17 Aug, 2012 [facility] [address] [id number] [address] [place] [address], [place] [address] 15 Aug, 2012 [facility] [address] [id number] [address] [place] [address], [place] [address] 15 Aug, 2012 [facility] [address] [id number] [address] [place] [address], [place] [address] 11 Aug, 2012 [facility] [address] [id number] [address] [place] [address], [place] [address] Aug, [facility] [address] [id number] [address] [place] [address], [place] [address] Aug, [facility] [address] [id number] [address] [place] [address], [place] [address] Jul, [facility] [address] [id number] [address] [place] [address], [place] [address] Jul, [facility] [address] [id number] [address] [place] [address], [place] [address] Jul, [facility] [address] [id number] [address] [place] [address], [place] [address] Jul, [facility] [address] [id number] [address] [place] [address], [place] [address] Jul, [facility] [address] [id number] [address] [place] [address] Jul, [facility] [address] [id number] [address] [place] [address], [place] [address] Jul, [facility] [address] [id number] [address] [place] [address] Jul, [facility] [address] [id number] [address] [place] [address] Jul, [facility] [address] [id number] [address] [place] [address] Jul, [facility] [address] [id number] [address] [place] [address] May, [facility] [address] [id number] [id number] May, [facility] [address] [id number] [address] [place] [id number] May, [facility] [address] [id number] [address] [place] [id number] May, [facility] [address] [facility] [id number] [address] [place] [id number] May, [facility] [address] [facility] [id number] [address] [place] [id number] Apr, [facility] [address] [id number] [place] [id number] Apr, [facility] [address] [id number] [address] [place] [phone] Apr, [facility] [address] [facility] [id number] [address] [place] [id number] Mar, [facility] [address] [id number] [place] [id number] Mar, [facility] [address] [facility] [id number] [address] [place] [id number] Mar, [facility] [address] [id number] [place] [id number] Feb, [facility] [address] [facility] [id number] [address] [place] [phone] Feb, [facility] [address] [facility] [id number] [address] [place] [id number] Feb, [facility] [address] [id number] [place] [id number] Feb, [facility] [address] [id number] [place] [id number] Feb, [facility] [address] [id number] [place] [id number] Jan, [facility] [address] [id number] [address] [place] [address], [place] [address] Jan, [facility] [address] [id number] [place] [id number] Jan, [facility] [address] [id number] [place] [id number] Jan, [facility] [address] [id number] [place] [id number] Jan, [facility] [address] [id number] [address] [place] [address], [place] [address] Jan, [facility] [address] [id number] [address] [place] [address], [place] [address] Jan, [facility] [address] [facility] [id number] [address] [place] [address], [place] [id number] Aug, [facility] [address] [id number] [place] [id number] Aug, [facility] [address] [facility] [id number] [address] [place] [address], [place] [id number] Jul, [facility] [address] [facility] [id number] [address] [place] [address], [place] [address] Jul, [facility] [address] [facility] [id number] [address] [place] [address], [place] [address] Jul, [facility] [place] [address] [id number] [place] [id number] Jul, [facility] [address] [facility] [id number] [address] [place] [address], [place] [address] Jul, [facility] [address] [id number] [place] [id number] Jul, [facility] [address] [facility] [id number] [address] [place] [address], [place] [address] Jul, [facility] [address] [id number] [place] [id number] Jul, [facility] [address] [id number] [place] [id number] Jul, [facility] [address] [id number] [place] [id number] Jul, [facility] [address] [facility] [id number] [address] [place] [address], [place] [address] May, [facility] [address] [facility] [id number] [address] [place] [id number] May, [facility] [address] [id number] [address] [place] [id number] May, [facility] [address] [id number] [address] [place] [id number] Apr, [facility] [address] [id number] [address] [place] [id number] Jan, [facility] [address] [id number] [address] [place] [id number] Jan, [facility] [address] [id number] [address] [place] [id number] Dec, [facility] [address] [id number] [address] [place] [id number] Dec, [facility] [address] [id number] [address] [place] [id number] May, [facility] [address] [id number] [address] [place] [id number] Mar, [facility] [address] [id number] [address] [place] [id number] Mar, [facility] [address] [id number] [address] [place] [phone] Jan, IMMUNIZATIONS No Known Immunizations SOCIAL HISTORY Never Assessed REASON FOR VISIT PLAN OF CARE VITAL SIGNS Height 63 in 2014-06-03 Weight 189.25 lbs 2014-06-03 Temperature 99.4 degrees Fahrenheit 2014-06-03 Heart Rate 100 bpm 2014-06-03 Respiratory Rate 20 2014-06-03 Blood pressure systolic 118 mmHg 2014-06-03 Blood pressure diastolic 82 mmHg 2014-06-03 MEDICATIONS Unknown Medications RESULTS No Results PROCEDURES Procedure Date Ordered Result Body Site STREP A ASSAY W/OPTIC Jun 03, 2014 MEASURE BLOOD OXYGEN LEVEL Jun 03, 2014 HETEROPHILE ANTIBODIES Jun 03, 2014 PROTHROMBIN TIME Jun 03, 2014 VITAMIN B-12 Jun 03, 2014 COMPREHEN METABOLIC PANEL Jun 03, 2014 CT ANGIOGRAPHY, CHEST Jun 03, 2014 VENIPUNCT, ROUTINE* Jun 03, 2014 INSTRUCTIONS MEDICATIONS ADMINISTERED No Known Medications [...]
--- OUTSIDE RECORDS SUMMARY | 2020-01-28 12:48 | XMS REPORT ---
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 Active 550201583 Problem History of venous thromboembolism V12.51 Active 825636994 Problem Cellulitis of unspecified part of limb L03.119 Active 760805185 Problem Gastroesophageal reflux disease without esophagitis K21.9 Active 825530391 Problem History of pulmonary embolism Z86.711 Active 370641387 Problem Pseudotumor cerebri G93.2 Active 80707906 Problem History of DVT (deep vein thrombosis) Z86.718 Active 190080647 ALLERGIES No Information ENCOUNTERS Encounter Location Date Diagnosis [place] [id number] [facility] [id number] [address] [place] [address] Apr, senior care (current) use of 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 Z79.01 [facility] [address] [facility] [id number] [address] [place] [address] Apr, senior care 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.01 [facility] [address] [facility] [id number] [address] [place] [address] Apr, Cellulitis of unspecified pa rt of limb L03.119 ; Allergic contact dermatitis due to adhesives L23.1 and Chronic pain syndrome G89.4 [facility] [address] [facility] [id number] [address] [place] [address] Apr, [place] [address] [place] [id number] [address] [place] [address] Apr, digital marketing manager 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.01 ; Cellulitis of unspecified part of limb L03.119 ; Chronic pain syndrome G89.4 and Anxiety F41.9 [facility] [address] [place] [id number] [address] [place] [address] 16 Apr, 2015 [facility] [address] [place] [id number] [place] [address] Apr, [place] [address] [place] [id number] [place] [address] Mar, [place] [address] [address] Mar, [place] [address] [address] Mar, Sore throat J02.9 ; Gastroes ophageal reflux disease without esophagitis K21.9 ; Pseudotumor cerebri G93.2 ; Chronic pain syndrome G89.4 ; Choriocarcinoma C58 ; History of pulmonary embolism Z86.711 ; History of DVT (deep vein thrombosis) Z86.718 ; Anxiety F41.9 and Tachycardia R00.0 [place] [address] [address] Feb, Anxiety 300.00 and Chronic p ain 338.29 [place] [address] [place] [id number] [address] [place] [address] Feb, [place] [address] [place] [id number] [address] [place] [address] Feb, [place] [address] [address] Jan, digital marketing manager current use of ant icoagulant therapy V58.61 and Dysuria 788.1 [place] [address] [place] [id number] [place] [address] Jan, Dysuria 788.1 [facility] [address] [place] [id number] [address] [place] [address] Jan, Anxiety 300.00 and Chronic p ain 338.29 [facility] [address] [place] [id number] [place] [address] Jan, [facility] [address] [address] Jan, [facility] [address] [address] Jan, [place] [address] [address] Dec, Weakness 780.79 [place] [address] [address] Dec, senior care current use of ant icoagulant therapy V58.61 [place] [address] [address] Dec, Palpitations 785.1 ; Tremor 781.0 ; Weakness 780.79 ; senior care current use of anticoagulant therapy V58.61 and Yeast vaginitis 112.1 [place] [address] [place] [id number] [address] [place] [address] Dec, [place] [address] [address] Dec, Cervicalgia 723.1 ; Tachycar yoseph 785.0 ; Pseudotumor cerebri 348.2 and History of venous thromboembolism V12.51 [place] [address] [address] Nov, [place] [address] [address] Nov, [place] [address] [address] Nov, Tachycardia 785.0 ; Pseudotu mor cerebri 348.2 ; Anxiety 300.00 and History of venous thromboembolism V12.51 [facility] [address] [id number] [address] [place] [address] Nov, [facility] [address] [id number] [address] [place] [address] 18 Nov, 2014 [facility] [address] [id number] [address] [place] [address] Nov, [facility] [address] [id number] [address] [place] [address] Nov, [facility] [address] [facility] [id number] [address] [place] [address] Nov, [facility] [address] [facility] [id number] [address] [place] [address] Nov, [facility] [address] [facility] [id number] [address] [place] [address] Nov, [facility] [address] [facility] [id number] [address] [place] [address] October, [facility] [address] [facility] [id number] [address] [place] [address] October, [facility] [address] [place] [id number] [address] [place] [address] October, Pain in thoracic spine 724.1 and Tachycardia 785.0 [facility] [address] [id number] [address] [place] [address] October, [facility] [address] [id number] [address] [place] [address] October, [facility] [address] [facility] [id number] [address] [place] [address] 14 Sep, 2014 [facility] [address] [facility] [id number] [address] [place] [address] Sep, [facility] [address] [id number] [facility] [address] Aug, [facility] [address] [id number] [address] [place] [address], [place] [address] Aug, [facility] [address] [id number] [address] [place] [address], [place] [address] Aug, [facility] [address] [id number] [address] [place] [address], [place] [address] Aug, [facility] [address] [id number] [address] [place] [address], [place] [address] Aug, [facility] [address] [id number] [address] [place] [address], [place] [address] Aug, [facility] [address] [id number] [address] [place] [address], [place] [address] Aug, [facility] [address] [id number] [address] [place] [address], [place] [address] Aug, [facility] [address] [id number] [address] [place] [address], [place] [address] Aug, [facility] [address] [id number] [address] [place] [address], [place] [address] Aug, [facility] [address] [id number] [address] [place] [address], [place] [address] Aug, [facility] [address] [id number] [address] [place] [address], [place] [address] Aug, 2014 [facility] [address] [id number] [address] [place] [address], [place] [address] Jul, [facility] [address] [id number] [address] [place] [address], [place] [address] Jul, [facility] [address] [id number] [address] [place] [address], [place] [address] Jul, [facility] [address] [id number] [address] [place] [address], [place] [address] Jul, [facility] [address] [id number] [address] [place] [address], [place] [address] 23 Jul, 2014 [facility] [address] [id number] [address] [place] [address], [place] [address] 23 Jul, 2014 [facility] [address] [id number] [address] [place] [address], [place] [address] 23 Jul, 2014 [facility] [address] [id number] [address] [place] [address], [place] [address] 23 Jul, 2014 [facility] [address] [id number] [address] [place] [address], [place] [address] 20 Jul, 2014 [facility] [address] [id number] [address] [place] [address], [place] [address] 20 Jul, 2014 [facility] [address] [id number] [address] [place] [address], [place] [address] 19 Jul, 2014 [facility] [address] [id number] [address] [place] [address], [place] [address] 19 Jul, 2014 [facility] [address] [id number] [address] [place] [address], [place] [address] 17 Jul, 2014 [facility] [address] [id number] [address] [place] [address], [place] [address] 17 Jul, 2014 [facility] [address] [id number] [address] [place] [address], [place] [address] 16 Jul, 2014 [facility] [address] [id number] [address] [place] [address], [place] [address] 16 Jul, 2014 [facility] [address] [id number] [address] [place] [address], [place] [address] 16 Jul, 2014 [facility] [address] [id number] [address] [place] [address] 16 Jul, 2014 [facility] [address] [id number] [address] [place] [address] 13 Jul, 2014 [facility] [address] [id number] [address] [place] [address], [place] [address] Jul, [facility] [address] [id number] [address] [place] [address], [place] [address] Jul, [facility] [address] [id number] [address] [place] [address], [place] [address] Jul, 2014 [facility] [address] [id number] [address] [place] [address], [place] [address] Jul, 2014 [facility] [address] [id number] [address] [place] [address], [place] [address] Jul, [facility] [address] [id number] [address] [place] [address], [place] [address] Jul, [facility] [address] [id number] [address] [place] [address], [place] [address] Jul, [facility] [address] [id number] [address] [place] [address], [place] [address] Jul, [facility] [address] [id number] [address] [place] [address], [place] [address] Jul, [facility] [address] [id number] [address] [place] [address], [place] [address] Jul, [facility] [address] [id number] [address] [place] [address], [place] [address] Jul, [facility] [address] [id number] [address] [place] [address], [place] [address] Jun, [facility] [address] [id number] [address] [place] [address], [place] [address] Jun, [facility] [address] [id number] [address] [place] [address], [place] [address] Jun, [facility] [address] [id number] [address] [place] [address], [place] [address] Jun, [facility] [address] [id number] [address] [place] [address], [place] [address] Jun, [facility] [address] [id number] [address] [place] [address], [place] [address] Jun, [facility] [address] [id number] [address] [place] [address], [place] [address] Jun, [facility] [address] [id number] [address] [place] [address], [place] [address] Jun, [facility] [address] [id number] [address] [place] [address], [place] [address] Jun, [facility] [address] [id number] [address] [place] [address], [place] [address] Jun, [facility] [address] [id number] [address] [place] [address], [place] [address] Jun, [facility] [address] [id number] [address] [place] [address], [place] [address] Jun, [facility] [address] [id number] [address] [place] [address], [place] [address] Jun, [facility] [address] [id number] [address] [place] [address], [place] [address] Jun, [facility] [address] [id number] [address] [place] [address], [place] [address] Jun, [facility] [address] [id number] [address] [place] [address], [place] [address] Jun, [facility] [address] [id number] [address] [place] [address], [place] [address] Jun, [facility] [address] [id number] [address] [place] [address], [place] [address] Jun, [facility] [address] [id number] [address] [place] [address], [place] [address] Jun, [facility] [address] [id number] [address] [place] [address], [place] [address] Jun, [facility] [address] [id number] [address] [place] [address], [place] [address] May, [facility] [address] [id number] [address] [place] [address], [place] [address] May, [facility] [address] [id number] [address] [place] [address], [place] [address] May, [facility] [address] [id number] [address] [place] [address], [place] [address] May, [facility] [address] [id number] [address] [place] [address], [place] [address] May, [facility] [address] [id number] [address] [place] [address], [place] [address] May, [facility] [address] [id number] [address] [place] [address], [place] [address] May, [facility] [address] [id number] [address] [place] [address], [place] [address] May, [facility] [address] [id number] [address] [place] [address], [place] [address] May, [facility] [address] [id number] [address] [place] [address], [place] [address] May, [facility] [address] [id number] [address] [place] [address], [place] [address] May, [facility] [address] [id number] [address] [place] [address], [place] [address] 18 May, 2014 [facility] [address] [id number] [address] [place] [address], [place] [address] 18 May, 2014 [facility] [address] [id number] [address] [place] [address], [place] [address] 17 May, 2014 [facility] [address] [id number] [address] [place] [address], [place] [address] 16 May, 2014 [facility] [address] [id number] [address] [place] [address], [place] [address] 16 May, 2014 [facility] [address] [id number] [address] [place] [address], [place] [address] 15 May, 2014 [facility] [address] [id number] [address] [place] [address], [place] [address] 15 May, 2014 [facility] [address] [id number] [address] [place] [address], [place] [address] May, [facility] [address] [id number] [address] [place] [address], [place] [address] May, [facility] [address] [id number] [address] [place] [address], [place] [address] May, [facility] [address] [id number] [address] [place] [address], [place] [address] May, [facility] [address] [id number] [address] [place] [address], [place] [address] May, [facility] [address] [id number] [address] [place] [address], [place] [address] May, [facility] [address] [id number] [address] [place] [address], [place] [address] May, [facility] [address] [id number] [address] [place] [address], [place] [address] May, [facility] [address] [id number] [address] [place] [address], [place] [address] May, [facility] [address] [id number] [address] [place] [address], [place] [address] May, [facility] [address] [id number] [address] [place] [address], [place] [address] May, [facility] [address] [id number] [address] [place] [address], [place] [address] May, [facility] [address] [id number] [address] [place] [address], [place] [address] May, [facility] [address] [id number] [address] [place] [address], [place] [address] May, [facility] [address] [id number] [address] [place] [address], [place] [address] May, [facility] [address] [id number] [address] [place] [address], [place] [address] May, [facility] [address] [id number] [address] [place] [address], [place] [address] Apr, [facility] [address] [id number] [address] [place] [address], [place] [address] Apr, [facility] [address] [id number] [address] [place] [address], [place] [address] Apr, [facility] [address] [id number] [address] [place] [address], [place] [address] Apr, [facility] [address] [id number] [address] [place] [address], [place] [address] Apr, [facility] [address] [id number] [address] [place] [address], [place] [address] Apr, [facility] [address] [id number] [address] [place] [address], [place] [address] Apr, [facility] [address] [id number] [address] [place] [address], [place] [address] Apr, [facility] [address] [id number] [address] [place] [address], [place] [address] Apr, [facility] [address] [id number] [address] [place] [address], [place] [address] Apr, [facility] [address] [id number] [address] [place] [address], [place] [address] Mar, [facility] [address] [id number] [address] [place] [address], [place] [address] Mar, [facility] [address] [id number] [address] [place] [address] [address] Mar, [facility] [address] [id number] [address] [place] [address], [place] [address] 31 Mar, 2013 [facility] [address] [id number] [address] [place] [address], [place] [address] Mar, [facility] [address] [id number] [address] [place] [address], [place] [address] 30 Mar, 2014 [facility] [address] [id number] [address] [place] [address], [place] [address] Mar, [facility] [address] [id number] [address] [place] [address], [place] [address] Mar, [facility] [address] [id number] [address] [place] [address], [place] [address] Mar, [facility] [address] [id number] [address] [place] [address], [place] [address] Mar, [facility] [address] [id number] [address] [place] [id number] Mar, [facility] [address] [id number] [address] [place] [id number] Mar, [facility] [address] [id number] [address] [place] [id number] Mar, [facility] [address] [id number] [address] [place] [id number] Mar, 2013 [facility] [address] [id number] [address] [place] [id number] Mar, 2013 [facility] [address] [id number] [address] [place] [id number] Mar, [facility] [address] [id number] [address] [place] [id number] Mar, [facility] [address] [id number] [address] [place] [id number] Mar, 2013 [facility] [address] [id number] [address] [place] [address], [place] [address] 02 Mar, 2013 [facility] [address] [id number] [address] [place] [address], [place] [address] 02 Mar, 2013 [facility] [address] [id number] [address] [place] [address], [place] [address] 05 Sep, 2013 [facility] [address] [id number] [address] [place] [address], [place] [address] 05 Sep, 2013 [facility] [address] [id number] [address] [place] [address], [place] [address] 04 Sep, 2013 [facility] [address] [id number] [address] [place] [address], [place] [address] 04 Sep, 2013 [facility] [address] [id number] [address] [place] [address], [place] [address] 03 Feb, 2013 [facility] [address] [id number] [address] [place] [address], [place] [address] 03 Feb, 2013 [facility] [address] [id number] [address] [place] [address], [place] [address] 02 Feb, 2013 [facility] [address] [id number] [address] [place] [address], [place] [address] Feb, 2013 [facility] [address] [id number] [address] [place] [address], [place] [address] 02 Feb, 2013 [facility] [address] [id number] [address] [place] [address], [place] [address] Feb, 2013 [facility] [address] [id number] [address] [place] [address], [place] [address] Jan, [facility] [address] [id number] [address] [place] [address], [place] [address] Jan, [facility] [address] [id number] [address] [place] [address], [place] [address] Jan, [facility] [address] [id number] [address] [place] [address], [place] [address] Jan, [facility] [address] [id number] [facility] [address] Jan, [facility] [address] [id number] [address] [place] [address], [place] [address] Jan, [facility] [address] [id number] [address] [place] [address], [place] [address] Jan, [facility] [address] [id number] [address] [place] [address], [place] [address] Jan, [facility] [address] [id number] [address] [place] [address], [place] [address] Jan, [facility] [address] [id number] [address] [place] [address], [place] [address] Jan, [facility] [address] [id number] [address] [place] [address], [place] [address] Jan, [facility] [address] [id number] [address] [place] [address], [place] [address] Jan, [facility] [address] [id number] [address] [place] [address], [place] [address] Dec, [facility] [address] [id number] [address] [place] [address], [place] [address] Dec, [facility] [address] [id number] [address] [place] [address], [place] [address] Dec, [facility] [address] [id number] [address] [place] [address], [place] [address] Dec, [facility] [address] [id number] [address] [place] [address], [place] [address] Dec, [facility] [address] [id number] [address] [place] [address], [place] [address] Dec, [facility] [address] [id number] [address] [place] [address], [place] [address] Dec, [facility] [address] [id number] [address] [place] [address], [place] [address] Dec, [facility] [address] [id number] [address] [address] Dec, [facility] [address] [id number] [address] [place] [address], [place] [address] Dec, [facility] [address] [id number] [address] [place] [address], [place] [address] Dec, [facility] [address] [id number] [address] [place] [address], [place] [address] Dec, [facility] [address] [id number] [address] [place] [address], [place] [address] Nov, [facility] [address] [id number] [address] [place] [address], [place] [address] Nov, [facility] [address] [id number] [address] [place] [address], [place] [address] Nov, [facility] [address] [id number] [address] [place] [address], [place] [address] Nov, [facility] [address] [id number] [address] [place] [address], [place] [address] Nov, [facility] [address] [id number] [address] [place] [address], [place] [address] Nov, [facility] [address] [id number] [address] [place] [address], [place] [address] Nov, [facility] [address] [id number] [address] [place] [address], [place] [address] Nov, [facility] [address] [id number] [address] [place] [address], [place] [address] Nov, [facility] [address] [id number] [address] [place] [address], [place] [address] Nov, [facility] [address] [id number] [address] [place] [address], [place] [address] Nov, [facility] [address] [id number] [address] [address] Nov, [facility] [address] [id number] [address] [place] [address], [place] [address] Nov, [facility] [address] [id number] [address] [place] [address], [place] [address] Nov, [facility] [address] [id number] [address] [place] [address], [place] [address] October, [facility] [address] [id number] [address] [place] [address], [place] [address] October, [facility] [address] [id number] [address] [place] [address], [place] [address] October, [facility] [address] [id number] [address] [place] [address], [place] [address] October, [facility] [address] [id number] [address] [place] [address], [place] [address] October, [facility] [address] [id number] [address] [place] [address], [place] [address] October, [facility] [address] [id number] [address] [place] [address], [place] [address] October, [facility] [address] [id number] [address] [place] [address], [place] [address] October, [facility] [address] [id number] [address] [place] [address], [place] [address] October, [facility] [address] [id number] [address] [place] [address], [place] [address] October, [facility] [address] [id number] [address] [place] [address], [place] [address] October, [facility] [address] [id number] [address] [place] [address], [place] [address] October, [facility] [address] [id number] [address] [place] [address], [place] [address] Sep, [facility] [address] [id number] [address] [address] Sep, [facility] [address] [id number] [address] [place] [address], [place] [address] Sep, [facility] [address] [id number] [address] [address] Sep, [facility] [address] [id number] [address] [place] [address], [place] [address] Sep, [facility] [address] [id number] [address] [place] [address], [place] [address] Sep, [facility] [address] [id number] [address] [place] [address], [place] [address] Aug, [facility] [address] [id number] [address] [place] [address], [place] [address] Aug, [facility] [address] [id number] [address] [place] [address], [place] [address] Aug, [facility] [address] [id number] [address] [place] [address], [place] [address] Aug, [facility] [address] [id number] [address] [place] [address], [place] [address] Aug, [facility] [address] [id number] [address] [place] [address], [place] [address] Aug, [facility] [address] [id number] [address] [place] [address], [place] [address] Jul, [facility] [address] [id number] [address] [place] [address], [place] [address] Jul, [facility] [address] [id number] [address] [place] [address], [place] [address] Jul, [facility] [address] [id number] [address] [place] [address], [place] [address] Jul, [facility] [address] [id number] [address] [place] [address], [place] [address] 13 Jul, 2013 [facility] [address] [id number] [address] [place] [address], [place] [address] Jul, [facility] [address] [id number] [address] [place] [address], [place] [address] Jul, [facility] [address] [id number] [address] [place] [address], [place] [address] Jul, [facility] [address] [id number] [address] [place] [address], [place] [address] Jul, [facility] [address] [id number] [address] [place] [address], [place] [address] Jul, [facility] [address] [id number] [address] [place] [address], [place] [address] Jun, [facility] [address] [id number] [address] [place] [address], [place] [address] Jun, [facility] [address] [id number] [address] [place] [address], [place] [address] Jun, [facility] [address] [id number] [address] [place] [address], [place] [address] Jun, [facility] [address] [id number] [address] [place] [address], [place] [address] Jun, [facility] [address] [id number] [address] [place] [address], [place] [address] Jun, [facility] [address] [id number] [address] [place] [address], [place] [address] Jun, [facility] [address] [id number] [address] [place] [address], [place] [address] Jun, [facility] [address] [id number] [address] [place] [address], [place] [address] May, [facility] [address] [id number] [address] [place] [address], [place] [address] May, [facility] [address] [id number] [address] [place] [address], [place] [address] May, [facility] [address] [id number] [address] [place] [address], [place] [address] May, [facility] [address] [id number] [address] [place] [address], [place] [address] May, [facility] [address] [id number] [address] [place] [address], [place] [address] May, [facility] [address] [id number] [address] [place] [address], [place] [address] May, [facility] [address] [id number] [address] [place] [address], [place] [address] May, [facility] [address] [id number] [address] [place] [address], [place] [address] Apr, [facility] [address] [id number] [address] [place] [address] Apr, [facility] [address] [id number] [address] [place] [address], [place] [address] Apr, [facility] [address] [id number] [address] [place] [address] Apr, [facility] [address] [id number] [address] [place] [address] Apr, [facility] [address] [id number] [address] [place] [address] Apr, [facility] [address] [id number] [address] [place] [address], [place] [address] Mar, [facility] [address] [id number] [address] [place] [address] Mar, [facility] [address] [id number] [address] [place] [address], [place] [address] Mar, [facility] [address] [id number] [address] [place] [address], [place] [address] Mar, [facility] [address] [id number] [address] [place] [address], [place] [address] Mar, [facility] [address] [id number] [address] [place] [address], [place] [address] Mar, [facility] [address] [id number] [address] [place] [address], [place] [address] Mar, [facility] [address] [id number] [address] [place] [address], [place] [address] 30 Feb, 2012 [facility] [address] [id number] [address] [place] [address], [place] [address] 30 Feb, 2013 [facility] [address] [id number] [address] [place] [address], [place] [address] 27 Feb, 2013 [facility] [address] [id number] [address] [place] [address], [place] [address] Feb, 2012 [facility] [address] [id number] [address] [place] [address], [place] [address] Feb, [facility] [address] [id number] [address] [place] [address], [place] [address] Feb, [facility] [address] [id number] [address] [place] [address], [place] [address] Jan, [facility] [address] [id number] [address] [place] [address], [place] [address] Jan, [facility] [address] [id number] [address] [place] [address], [place] [address] Jan, [facility] [address] [id number] [address] [place] [address], [place] [address] Jan, [facility] [address] [id number] [address] [place] [address], [place] [address] Jan, [facility] [address] [id number] [address] [place] [address], [place] [address] Jan, [facility] [address] [id number] [address] [place] [address], [place] [address] Jan, [facility] [address] [id number] [address] [place] [address], [place] [address] Jan, [facility] [address] [id number] [address] [place] [address], [place] [address] Jan, [facility] [address] [id number] [address] [place] [address], [place] [address] Dec, [facility] [address] [id number] [address] [place] [address], [place] [address] Dec, [facility] [address] [id number] [address] [place] [address], [place] [address] Dec, [facility] [address] [id number] [address] [place] [address], [place] [address] Dec, [facility] [address] [id number] [address] [place] [address], [place] [address] Dec, [facility] [address] [id number] [address] [place] [address], [place] [address] Dec, [facility] [address] [id number] [address] [place] [address], [place] [address] Dec, [facility] [address] [id number] [address] [place] [address], [place] [address] Dec, [facility] [address] [id number] [address] [place] [address], [place] [address] Dec, [facility] [address] [id number] [address] [place] [address], [place] [address] Dec, [facility] [address] [id number] [address] [place] [address], [place] [address] Dec, [facility] [address] [id number] [address] [place] [address], [place] [address] Dec, [facility] [address] [id number] [address] [place] [address], [place] [address] Dec, [facility] [address] [id number] [address] [place] [address], [place] [address] Nov, [facility] [address] [id number] [address] [place] [address], [place] [address] Nov, [facility] [address] [id number] [address] [place] [address], [place] [address] Nov, [facility] [address] [id number] [address] [place] [address], [place] [address] Nov, [facility] [address] [id number] [address] [place] [address], [place] [address] October, [facility] [address] [id number] [address] [place] [address], [place] [address] October, [facility] [address] [id number] [address] [place] [address], [place] [address] October, [facility] [address] [id number] [address] [place] [address], [place] [address] October, [facility] [address] [id number] [address] [place] [address], [place] [address] October, [facility] [address] [id number] [address] [place] [address], [place] [address] October, [facility] [address] [id number] [address] [place] [address], [place] [address] Sep, [facility] [address] [id number] [address] [place] [address], [place] [address] Sep, [facility] [address] [id number] [address] [place] [address], [place] [address] Sep, [facility] [address] [id number] [address] [place] [address], [place] [address] Sep, [facility] [address] [id number] [address] [place] [address], [place] [address] Sep, [facility] [address] [id number] [address] [address] 16 Sep, 2012 [facility] [address] [id number] [address] [place] [address], [place] [address] 12 Sep, 2012 [facility] [address] [id number] [address] [place] [address], [place] [address] Sep, [facility] [address] [id number] [address] [place] [address], [place] [address] Sep, [facility] [address] [id number] [address] [place] [address], [place] [address] Sep, [facility] [address] [id number] [address] [place] [address], [place] [address] Sep, [facility] [address] [id number] [address] [place] [address], [place] [address] Aug, [facility] [address] [id number] [address] [place] [address], [place] [address] 25 Aug, 2012 [facility] [address] [id number] [address] [place] [address], [place] [address] 25 Aug, 2012 [facility] [address] [id number] [address] [place] [address], [place] [address] 21 Aug, 2012 [facility] [address] [id number] [address] [place] [address], [place] [address] 19 Aug, 2012 [facility] [address] [id number] [address] [place] [address], [place] [address] 18 Aug, 2012 [facility] [address] [id number] [address] [place] [address], [place] [address] 17 Aug, 2012 [facility] [address] [id number] [address] [place] [address], [place] [address] 15 Aug, 2012 [facility] [address] [id number] [address] [place] [address], [place] [address] 15 Aug, 2012 [facility] [address] [id number] [address] [place] [address], [place] [address] Aug, [facility] [address] [id number] [address] [place] [address], [place] [address] Aug, [facility] [address] [id number] [address] [place] [address], [place] [address] Aug, [facility] [address] [id number] [address] [place] [address], [place] [address] Jul, [facility] [address] [id number] [address] [place] [address], [place] [address] Jul, [facility] [address] [id number] [address] [place] [address], [place] [address] Jul, [facility] [address] [id number] [address] [place] [address], [place] [address] Jul, [facility] [address] [id number] [address] [place] [address], [place] [address] Jul, [facility] [address] [id number] [address] [place] [address], [place] [address] Jul, [facility] [address] [id number] [address] [place] [address], [place] [address] Jul, [facility] [address] [id number] [address] [place] [address], [place] [address] Jul, [facility] [address] [id number] [address] [place] [address], [place] [address] Jul, [facility] [address] [id number] [address] [place] [address], [place] [address] Jul, [facility] [address] [id number] [address] [place] [address], [place] [address] May, [facility] [address] [id number] [place] [id number] May, [facility] [address] [id number] [address] [place] [address], [place] [address] May, [facility] [address] [id number] [address] [place] [id number] May, [facility] [address] [facility] [id number] [address] [place] [id number] May, [facility] [address] [facility] [id number] [address] [place] [id number] Apr, [facility] [place] [address] [id number] [place] [id number] Apr, [facility] [address] [facility] [id number] [address] [place] [id number] Apr, [facility] [address] [facility] [id number] [address] [place] [address] Mar, [facility] [address] [id number] [place] [id number] Mar, [facility] [address] [facility] [id number] [address] [place] [id number] Mar, [facility] [address] [id number] [place] [id number] Feb, [facility] [address] [facility] [id number] [address] [place] [id number] Feb, [facility] [address] [facility] [id number] [address] [place] [id number] Feb, [facility] [place] [address] [id number] [place] [id number] Feb, [facility] [address] [id number] [place] [id number] Feb, [facility] [address] [id number] [place] [id number] Jan, [facility] [address] [id number] [address] [place] [address], [place] [address] Jan, [facility] [address] [id number] [place] [id number] Jan, [facility] [address] [id number] [place] [id number] Jan, [facility] [address] [id number] [place] [id number] Jan, [facility] [address] [facility] [id number] [address] [place] [address], [place] [address] Jan, [facility] [address] [facility] [id number] [address] [place] [address], [place] [address] Jan, [facility] [address] [facility] [id number] [address] [place] [address], [place] [address] Aug, [facility] [address] [id number] [place] [id number] Aug, [facility] [address] [facility] [id number] [address] [place] [address], [place] [address] Jul, [facility] [address] [facility] [id number] [address] [place] [address], [place] [address] Jul, [facility] [address] [facility] [id number] [address] [place] [address], [place] [address] Jul, [facility] [address] [id number] [place] [id number] Jul, [facility] [address] [facility] [id number] [address] [place] [address], [place] [address] Jul, [facility] [place] [address] [id number] [place] [id number] Jul, [facility] [address] [facility] [id number] [address] [place] [address], [place] [address] Jul, [facility] [address] [id number] [place] [id number] Jul, [facility] [address] [id number] [place] [id number] Jul, [facility] [address] [id number] [place] [id number] Jul, [facility] [address] [facility] [id number] [address] [place] [address], [place] [address] May, [facility] [address] [id number] [address] [place] [id number] May, [facility] [address] [id number] [address] [place] [id number] May, [facility] [address] [id number] [address] [place] [phone] Apr, [facility] [address] [id number] [address] [place] [id number] Jan, [facility] [address] [id number] [address] [place] [id number] Jan, [facility] [address] [id number] [address] [place] [id number] Dec, [facility] [address] [id number] [address] [place] [id number] Dec, [facility] [address] [id number] [address] [place] [phone] May, [facility] [address] [id number] [address] [place] [id number] Mar, [facility] [address] [id number] [place] [id number] Mar, [facility] [address] [id number] [address] [place] [id number] Jan, IMMUNIZATIONS No Known Immunizations SOCIAL HISTORY [...]
--- OUTSIDE RECORDS SUMMARY | 2020-01-28 12:48 | XMS REPORT ---
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 Active 804340158 Problem History of venous thromboembolism V12.51 Active 971144011 Problem Cellulitis of unspecified part of limb L03.119 Active 453634377 Problem Gastroesophageal reflux disease without esophagitis K21.9 Active 345196217 Problem History of pulmonary embolism Z86.711 Active 401172273 Problem Pseudotumor cerebri G93.2 Active 57852472 Problem History of DVT (deep vein thrombosis) Z86.718 Active 145582034 ALLERGIES No Information ENCOUNTERS Encounter Location Date Diagnosis [place] [id number] [facility] [id number] [address] [place] [address] Apr, correction (current) use of 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 Z79.01 [facility] [address] [facility] [id number] [address] [place] [address] Apr, correction 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.01 [facility] [address] [facility] [id number] [address] [place] [address] Apr, Cellulitis of unspecified pa rt of limb L03.119 ; Allergic contact dermatitis due to adhesives L23.1 and Chronic pain syndrome G89.4 [facility] [address] [facility] [id number] [address] [place] [address] Apr, [place] [address] [place] [id number] [address] [place] [address] Apr, 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.01 ; Cellulitis of unspecified part of limb L03.119 ; Chronic pain syndrome G89.4 and Anxiety F41.9 [facility] [address] [place] [id number] [address] [place] [address] 16 Apr, 2015 [facility] [address] [place] [id number] [place] [address] Apr, [place] [address] [place] [id number] [place] [address] Mar, [place] [address] [address] Mar, [place] [address] [address] Mar, Sore throat J02.9 ; Gastroes ophageal reflux disease without esophagitis K21.9 ; Pseudotumor cerebri G93.2 ; Chronic pain syndrome G89.4 ; Choriocarcinoma C58 ; History of pulmonary embolism Z86.711 ; History of DVT (deep vein thrombosis) Z86.718 ; Anxiety F41.9 and Tachycardia R00.0 [place] [address] [address] Feb, Anxiety 300.00 and Chronic p ain 338.29 [place] [address] [place] [id number] [address] [place] [address] Feb, [place] [address] [place] [id number] [address] [place] [address] Feb, [place] [address] [address] Jan, 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 termite 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 ant icoagulant therapy V58.61 and Dysuria 788.1 [place] [address] [place] [id number] [place] [address] Jan, Dysuria 788.1 [facility] [address] [place] [id number] [address] [place] [address] Jan, Anxiety 300.00 and Chronic p ain 338.29 [facility] [address] [place] [id number] [place] [address] Jan, [facility] [address] [address] Jan, [facility] [address] [address] Jan, [place] [address] [address] Dec, Weakness 780.79 [place] [address] [address] Dec, correction current use of ant icoagulant therapy V58.61 [place] [address] [address] Dec, Palpitations 785.1 ; Tremor 781.0 ; Weakness 780.79 ; correction current use of anticoagulant therapy V58.61 and Yeast vaginitis 112.1 [place] [address] [place] [id number] [address] [place] [address] Dec, [place] [address] [address] Dec, Cervicalgia 723.1 ; Tachycar yoseph 785.0 ; Pseudotumor cerebri 348.2 and History of venous thromboembolism V12.51 [place] [address] [address] Nov, [place] [address] [address] Nov, [place] [address] [address] Nov, Tachycardia 785.0 ; Pseudotu mor cerebri 348.2 ; Anxiety 300.00 and History of venous thromboembolism V12.51 [facility] [address] [id number] [address] [place] [address] Nov, [facility] [address] [id number] [address] [place] [address] 18 Nov, 2014 [facility] [address] [id number] [address] [place] [address] Nov, [facility] [address] [id number] [address] [place] [address] Nov, [facility] [address] [facility] [id number] [address] [place] [address] Nov, [facility] [address] [facility] [id number] [address] [place] [address] Nov, [facility] [address] [facility] [id number] [address] [place] [address] Nov, [facility] [address] [facility] [id number] [address] [place] [address] October, [facility] [address] [facility] [id number] [address] [place] [address] October, [facility] [address] [place] [id number] [address] [place] [address] October, Pain in thoracic spine 724.1 and Tachycardia 785.0 [facility] [address] [id number] [address] [place] [address] October, [facility] [address] [id number] [address] [place] [address] October, [facility] [address] [facility] [id number] [address] [place] [address] 14 Sep, 2014 [facility] [address] [facility] [id number] [address] [place] [address] Sep, [facility] [address] [id number] [facility] [address] Aug, [facility] [address] [id number] [address] [place] [address], [place] [address] Aug, [facility] [address] [id number] [address] [place] [address], [place] [address] Aug, [facility] [address] [id number] [address] [place] [address], [place] [address] Aug, [facility] [address] [id number] [address] [place] [address], [place] [address] Aug, [facility] [address] [id number] [address] [place] [address], [place] [address] Aug, [facility] [address] [id number] [address] [place] [address], [place] [address] Aug, [facility] [address] [id number] [address] [place] [address], [place] [address] Aug, [facility] [address] [id number] [address] [place] [address], [place] [address] Aug, [facility] [address] [id number] [address] [place] [address], [place] [address] Aug, [facility] [address] [id number] [address] [place] [address], [place] [address] Aug, [facility] [address] [id number] [address] [place] [address], [place] [address] Aug, 2014 [facility] [address] [id number] [address] [place] [address], [place] [address] Jul, [facility] [address] [id number] [address] [place] [address], [place] [address] Jul, [facility] [address] [id number] [address] [place] [address], [place] [address] Jul, [facility] [address] [id number] [address] [place] [address], [place] [address] Jul, [facility] [address] [id number] [address] [place] [address], [place] [address] 23 Jul, 2014 [facility] [address] [id number] [address] [place] [address], [place] [address] 23 Jul, 2014 [facility] [address] [id number] [address] [place] [address], [place] [address] 23 Jul, 2014 [facility] [address] [id number] [address] [place] [address], [place] [address] 23 Jul, 2014 [facility] [address] [id number] [address] [place] [address], [place] [address] 20 Jul, 2014 [facility] [address] [id number] [address] [place] [address], [place] [address] 20 Jul, 2014 [facility] [address] [id number] [address] [place] [address], [place] [address] 19 Jul, 2014 [facility] [address] [id number] [address] [place] [address], [place] [address] 19 Jul, 2014 [facility] [address] [id number] [address] [place] [address], [place] [address] 17 Jul, 2014 [facility] [address] [id number] [address] [place] [address], [place] [address] 17 Jul, 2014 [facility] [address] [id number] [address] [place] [address], [place] [address] 16 Jul, 2014 [facility] [address] [id number] [address] [place] [address], [place] [address] 16 Jul, 2014 [facility] [address] [id number] [address] [place] [address], [place] [address] 16 Jul, 2014 [facility] [address] [id number] [address] [place] [address] 16 Jul, 2014 [facility] [address] [id number] [address] [place] [address] 13 Jul, 2014 [facility] [address] [id number] [address] [place] [address], [place] [address] Jul, [facility] [address] [id number] [address] [place] [address], [place] [address] Jul, [facility] [address] [id number] [address] [place] [address], [place] [address] Jul, 2014 [facility] [address] [id number] [address] [place] [address], [place] [address] Jul, 2014 [facility] [address] [id number] [address] [place] [address], [place] [address] Jul, [facility] [address] [id number] [address] [place] [address], [place] [address] Jul, [facility] [address] [id number] [address] [place] [address], [place] [address] Jul, [facility] [address] [id number] [address] [place] [address], [place] [address] Jul, [facility] [address] [id number] [address] [place] [address], [place] [address] Jul, [facility] [address] [id number] [address] [place] [address], [place] [address] Jul, [facility] [address] [id number] [address] [place] [address], [place] [address] Jul, [facility] [address] [id number] [address] [place] [address], [place] [address] Jun, [facility] [address] [id number] [address] [place] [address], [place] [address] Jun, [facility] [address] [id number] [address] [place] [address], [place] [address] Jun, [facility] [address] [id number] [address] [place] [address], [place] [address] Jun, [facility] [address] [id number] [address] [place] [address], [place] [address] Jun, [facility] [address] [id number] [address] [place] [address], [place] [address] Jun, [facility] [address] [id number] [address] [place] [address], [place] [address] Jun, [facility] [address] [id number] [address] [place] [address], [place] [address] Jun, [facility] [address] [id number] [address] [place] [address], [place] [address] Jun, [facility] [address] [id number] [address] [place] [address], [place] [address] Jun, [facility] [address] [id number] [address] [place] [address], [place] [address] Jun, [facility] [address] [id number] [address] [place] [address], [place] [address] Jun, [facility] [address] [id number] [address] [place] [address], [place] [address] Jun, [facility] [address] [id number] [address] [place] [address], [place] [address] Jun, [facility] [address] [id number] [address] [place] [address], [place] [address] Jun, [facility] [address] [id number] [address] [place] [address], [place] [address] Jun, [facility] [address] [id number] [address] [place] [address], [place] [address] Jun, [facility] [address] [id number] [address] [place] [address], [place] [address] Jun, [facility] [address] [id number] [address] [place] [address], [place] [address] Jun, [facility] [address] [id number] [address] [place] [address], [place] [address] Jun, [facility] [address] [id number] [address] [place] [address], [place] [address] May, [facility] [address] [id number] [address] [place] [address], [place] [address] May, [facility] [address] [id number] [address] [place] [address], [place] [address] May, [facility] [address] [id number] [address] [place] [address], [place] [address] May, [facility] [address] [id number] [address] [place] [address], [place] [address] May, [facility] [address] [id number] [address] [place] [address], [place] [address] May, [facility] [address] [id number] [address] [place] [address], [place] [address] May, [facility] [address] [id number] [address] [place] [address], [place] [address] May, [facility] [address] [id number] [address] [place] [address], [place] [address] May, [facility] [address] [id number] [address] [place] [address], [place] [address] May, [facility] [address] [id number] [address] [place] [address], [place] [address] May, [facility] [address] [id number] [address] [place] [address], [place] [address] 18 May, 2014 [facility] [address] [id number] [address] [place] [address], [place] [address] 18 May, 2014 [facility] [address] [id number] [address] [place] [address], [place] [address] 17 May, 2014 [facility] [address] [id number] [address] [place] [address], [place] [address] 16 May, 2014 [facility] [address] [id number] [address] [place] [address], [place] [address] 16 May, 2014 [facility] [address] [id number] [address] [place] [address], [place] [address] 15 May, 2014 [facility] [address] [id number] [address] [place] [address], [place] [address] 15 May, 2014 [facility] [address] [id number] [address] [place] [address], [place] [address] May, [facility] [address] [id number] [address] [place] [address], [place] [address] May, [facility] [address] [id number] [address] [place] [address], [place] [address] May, [facility] [address] [id number] [address] [place] [address], [place] [address] May, [facility] [address] [id number] [address] [place] [address], [place] [address] May, [facility] [address] [id number] [address] [place] [address], [place] [address] May, [facility] [address] [id number] [address] [place] [address], [place] [address] May, [facility] [address] [id number] [address] [place] [address], [place] [address] May, [facility] [address] [id number] [address] [place] [address], [place] [address] May, [facility] [address] [id number] [address] [place] [address], [place] [address] May, [facility] [address] [id number] [address] [place] [address], [place] [address] May, [facility] [address] [id number] [address] [place] [address], [place] [address] May, [facility] [address] [id number] [address] [place] [address], [place] [address] May, [facility] [address] [id number] [address] [place] [address], [place] [address] May, [facility] [address] [id number] [address] [place] [address], [place] [address] May, [facility] [address] [id number] [address] [place] [address], [place] [address] May, [facility] [address] [id number] [address] [place] [address], [place] [address] Apr, [facility] [address] [id number] [address] [place] [address], [place] [address] Apr, [facility] [address] [id number] [address] [place] [address], [place] [address] Apr, [facility] [address] [id number] [address] [place] [address], [place] [address] Apr, [facility] [address] [id number] [address] [place] [address], [place] [address] Apr, [facility] [address] [id number] [address] [place] [address], [place] [address] Apr, [facility] [address] [id number] [address] [place] [address], [place] [address] Apr, [facility] [address] [id number] [address] [place] [address], [place] [address] Apr, [facility] [address] [id number] [address] [place] [address], [place] [address] Apr, [facility] [address] [id number] [address] [place] [address], [place] [address] Apr, [facility] [address] [id number] [address] [place] [address], [place] [address] Mar, [facility] [address] [id number] [address] [place] [address], [place] [address] Mar, [facility] [address] [id number] [address] [place] [address] [address] Mar, [facility] [address] [id number] [address] [place] [address], [place] [address] 31 Mar, 2013 [facility] [address] [id number] [address] [place] [address], [place] [address] Mar, [facility] [address] [id number] [address] [place] [address], [place] [address] 30 Mar, 2014 [facility] [address] [id number] [address] [place] [address], [place] [address] Mar, [facility] [address] [id number] [address] [place] [address], [place] [address] Mar, [facility] [address] [id number] [address] [place] [address], [place] [address] Mar, [facility] [address] [id number] [address] [place] [address], [place] [address] Mar, [facility] [address] [id number] [address] [place] [id number] Mar, [facility] [address] [id number] [address] [place] [id number] Mar, [facility] [address] [id number] [address] [place] [id number] Mar, [facility] [address] [id number] [address] [place] [id number] Mar, 2013 [facility] [address] [id number] [address] [place] [id number] Mar, 2013 [facility] [address] [id number] [address] [place] [id number] Mar, [facility] [address] [id number] [address] [place] [id number] Mar, [facility] [address] [id number] [address] [place] [id number] Mar, 2013 [facility] [address] [id number] [address] [place] [address], [place] [address] 02 Mar, 2013 [facility] [address] [id number] [address] [place] [address], [place] [address] 02 Mar, 2013 [facility] [address] [id number] [address] [place] [address], [place] [address] 05 Sep, 2013 [facility] [address] [id number] [address] [place] [address], [place] [address] 05 Sep, 2013 [facility] [address] [id number] [address] [place] [address], [place] [address] 04 Sep, 2013 [facility] [address] [id number] [address] [place] [address], [place] [address] 04 Sep, 2013 [facility] [address] [id number] [address] [place] [address], [place] [address] 03 Feb, 2013 [facility] [address] [id number] [address] [place] [address], [place] [address] 03 Feb, 2013 [facility] [address] [id number] [address] [place] [address], [place] [address] 02 Feb, 2013 [facility] [address] [id number] [address] [place] [address], [place] [address] Feb, 2013 [facility] [address] [id number] [address] [place] [address], [place] [address] 02 Feb, 2013 [facility] [address] [id number] [address] [place] [address], [place] [address] Feb, 2013 [facility] [address] [id number] [address] [place] [address], [place] [address] Jan, [facility] [address] [id number] [address] [place] [address], [place] [address] Jan, [facility] [address] [id number] [address] [place] [address], [place] [address] Jan, [facility] [address] [id number] [address] [place] [address], [place] [address] Jan, [facility] [address] [id number] [address] [address] Jan, [facility] [address] [id number] [address] [place] [address], [place] [address] Jan, [facility] [address] [id number] [address] [place] [address], [place] [address] Jan, [facility] [address] [id number] [address] [place] [address], [place] [address] Jan, [facility] [address] [id number] [address] [place] [address], [place] [address] Jan, [facility] [address] [id number] [address] [place] [address], [place] [address] Jan, [facility] [address] [id number] [address] [place] [address], [place] [address] Jan, [facility] [address] [id number] [address] [place] [address], [place] [address] Jan, [facility] [address] [id number] [address] [place] [address], [place] [address] Dec, [facility] [address] [id number] [address] [place] [address], [place] [address] Dec, [facility] [address] [id number] [address] [place] [address], [place] [address] Dec, [facility] [address] [id number] [address] [place] [address], [place] [address] Dec, [facility] [address] [id number] [address] [place] [address], [place] [address] Dec, [facility] [address] [id number] [address] [place] [address], [place] [address] Dec, [facility] [address] [id number] [address] [place] [address], [place] [address] Dec, [facility] [address] [id number] [address] [place] [address], [place] [address] Dec, [facility] [address] [id number] [address] [address] Dec, [facility] [address] [id number] [address] [place] [address], [place] [address] Dec, [facility] [address] [id number] [address] [place] [address], [place] [address] Dec, [facility] [address] [id number] [address] [place] [address], [place] [address] Dec, [facility] [address] [id number] [address] [place] [address], [place] [address] Nov, [facility] [address] [id number] [address] [place] [address], [place] [address] Nov, [facility] [address] [id number] [address] [place] [address], [place] [address] Nov, [facility] [address] [id number] [address] [place] [address], [place] [address] Nov, [facility] [address] [id number] [address] [place] [address], [place] [address] Nov, [facility] [address] [id number] [address] [place] [address], [place] [address] Nov, [facility] [address] [id number] [address] [place] [address], [place] [address] Nov, [facility] [address] [id number] [address] [place] [address], [place] [address] Nov, [facility] [address] [id number] [address] [place] [address], [place] [address] Nov, [facility] [address] [id number] [address] [place] [address], [place] [address] Nov, [facility] [address] [id number] [address] [place] [address], [place] [address] Nov, [facility] [address] [id number] [facility] [address] Nov, [facility] [address] [id number] [address] [place] [address], [place] [address] Nov, [facility] [address] [id number] [address] [place] [address], [place] [address] Nov, [facility] [address] [id number] [address] [place] [address], [place] [address] October, [facility] [address] [id number] [address] [place] [address], [place] [address] October, [facility] [address] [id number] [address] [place] [address], [place] [address] October, [facility] [address] [id number] [address] [place] [address], [place] [address] October, [facility] [address] [id number] [address] [place] [address], [place] [address] October, [facility] [address] [id number] [address] [place] [address], [place] [address] October, [facility] [address] [id number] [address] [place] [address], [place] [address] October, [facility] [address] [id number] [address] [place] [address], [place] [address] October, [facility] [address] [id number] [address] [place] [address], [place] [address] October, [facility] [address] [id number] [address] [place] [address], [place] [address] October, [facility] [address] [id number] [address] [place] [address], [place] [address] October, [facility] [address] [id number] [address] [place] [address], [place] [address] October, [facility] [address] [id number] [address] [place] [address], [place] [address] Sep, [facility] [address] [id number] [facility] [address] Sep, [facility] [address] [id number] [address] [place] [address], [place] [address] Sep, [facility] [address] [id number] [facility] [place] [address] Sep, [facility] [address] [id number] [address] [place] [address], [place] [address] Sep, [facility] [address] [id number] [address] [place] [address], [place] [address] Sep, [facility] [address] [id number] [address] [place] [address], [place] [address] Aug, [facility] [address] [id number] [address] [place] [address], [place] [address] Aug, [facility] [address] [id number] [address] [place] [address], [place] [address] Aug, [facility] [address] [id number] [address] [place] [address], [place] [address] Aug, [facility] [address] [id number] [address] [place] [address], [place] [address] Aug, [facility] [address] [id number] [address] [place] [address], [place] [address] Aug, [facility] [address] [id number] [address] [place] [address], [place] [address] Jul, [facility] [address] [id number] [address] [place] [address], [place] [address] Jul, [facility] [address] [id number] [address] [place] [address], [place] [address] Jul, [facility] [address] [id number] [address] [place] [address], [place] [address] Jul, [facility] [address] [id number] [address] [place] [address], [place] [address] 13 Jul, 2013 [facility] [address] [id number] [address] [place] [address], [place] [address] Jul, [facility] [address] [id number] [address] [place] [address], [place] [address] Jul, [facility] [address] [id number] [address] [place] [address], [place] [address] Jul, [facility] [address] [id number] [address] [place] [address], [place] [address] Jul, [facility] [address] [id number] [address] [place] [address], [place] [address] Jul, [facility] [address] [id number] [address] [place] [address], [place] [address] Jun, [facility] [address] [id number] [address] [place] [address], [place] [address] Jun, [facility] [address] [id number] [address] [place] [address], [place] [address] Jun, [facility] [address] [id number] [address] [place] [address], [place] [address] Jun, [facility] [address] [id number] [address] [place] [address], [place] [address] Jun, [facility] [address] [id number] [address] [place] [address], [place] [address] Jun, [facility] [address] [id number] [address] [place] [address], [place] [address] Jun, [facility] [address] [id number] [address] [place] [address], [place] [address] Jun, [facility] [address] [id number] [address] [place] [address], [place] [address] May, [facility] [address] [id number] [address] [place] [address], [place] [address] May, [facility] [address] [id number] [address] [place] [address], [place] [address] May, [facility] [address] [id number] [address] [place] [address], [place] [address] May, [facility] [address] [id number] [address] [place] [address], [place] [address] May, [facility] [address] [id number] [address] [place] [address], [place] [address] May, [facility] [address] [id number] [address] [place] [address], [place] [address] May, [facility] [address] [id number] [address] [place] [address], [place] [address] May, [facility] [address] [id number] [address] [place] [address], [place] [address] Apr, [facility] [address] [id number] [address] [place] [address] Apr, [facility] [address] [id number] [address] [place] [address], [place] [address] Apr, [facility] [address] [id number] [address] [place] [address] Apr, [facility] [address] [id number] [address] [place] [address] Apr, [facility] [address] [id number] [address] [place] [address] Apr, [facility] [address] [id number] [address] [place] [address], [place] [address] Mar, [facility] [address] [id number] [address] [place] [address] Mar, [facility] [address] [id number] [address] [place] [address], [place] [address] Mar, [facility] [address] [id number] [address] [place] [address], [place] [address] Mar, [facility] [address] [id number] [address] [place] [address], [place] [address] Mar, [facility] [address] [id number] [address] [place] [address], [place] [address] Mar, [facility] [address] [id number] [address] [place] [address], [place] [address] Mar, [facility] [address] [id number] [address] [place] [address], [place] [address] 30 Feb, 2012 [facility] [address] [id number] [address] [place] [address], [place] [address] 30 Feb, 2013 [facility] [address] [id number] [address] [place] [address], [place] [address] 27 Feb, 2013 [facility] [address] [id number] [address] [place] [address], [place] [address] Feb, 2012 [facility] [address] [id number] [address] [place] [address], [place] [address] Feb, [facility] [address] [id number] [address] [place] [address], [place] [address] Feb, [facility] [address] [id number] [address] [place] [address], [place] [address] Jan, [facility] [address] [id number] [address] [place] [address], [place] [address] Jan, [facility] [address] [id number] [address] [place] [address], [place] [address] Jan, [facility] [address] [id number] [address] [place] [address], [place] [address] Jan, [facility] [address] [id number] [address] [place] [address], [place] [address] Jan, [facility] [address] [id number] [address] [place] [address], [place] [address] Jan, [facility] [address] [id number] [address] [place] [address], [place] [address] Jan, [facility] [address] [id number] [address] [place] [address], [place] [address] Jan, [facility] [address] [id number] [address] [place] [address], [place] [address] Jan, [facility] [address] [id number] [address] [place] [address], [place] [address] Dec, [facility] [address] [id number] [address] [place] [address], [place] [address] Dec, [facility] [address] [id number] [address] [place] [address], [place] [address] Dec, [facility] [address] [id number] [address] [place] [address], [place] [address] Dec, [facility] [address] [id number] [address] [place] [address], [place] [address] Dec, [facility] [address] [id number] [address] [place] [address], [place] [address] Dec, [facility] [address] [id number] [address] [place] [address], [place] [address] Dec, [facility] [address] [id number] [address] [place] [address], [place] [address] Dec, [facility] [address] [id number] [address] [place] [address], [place] [address] Dec, [facility] [address] [id number] [address] [place] [address], [place] [address] Dec, [facility] [address] [id number] [address] [place] [address], [place] [address] Dec, [facility] [address] [id number] [address] [place] [address], [place] [address] Dec, [facility] [address] [id number] [address] [place] [address], [place] [address] Dec, [facility] [address] [id number] [address] [place] [address], [place] [address] Nov, [facility] [address] [id number] [address] [place] [address], [place] [address] Nov, [facility] [address] [id number] [address] [place] [address], [place] [address] Nov, [facility] [address] [id number] [address] [place] [address], [place] [address] Nov, [facility] [address] [id number] [address] [place] [address], [place] [address] October, [facility] [address] [id number] [address] [place] [address], [place] [address] October, [facility] [address] [id number] [address] [place] [address], [place] [address] October, [facility] [address] [id number] [address] [place] [address], [place] [address] October, [facility] [address] [id number] [address] [place] [address], [place] [address] October, [facility] [address] [id number] [address] [place] [address], [place] [address] October, [facility] [address] [id number] [address] [place] [address], [place] [address] Sep, [facility] [address] [id number] [address] [place] [address], [place] [address] Sep, [facility] [address] [id number] [address] [place] [address], [place] [address] Sep, [facility] [address] [id number] [address] [place] [address], [place] [address] Sep, [facility] [address] [id number] [address] [place] [address], [place] [address] Sep, [facility] [address] [id number] [facility] [place] [address] 16 Sep, 2012 [facility] [address] [id number] [address] [place] [address], [place] [address] 12 Sep, 2012 [facility] [address] [id number] [address] [place] [address], [place] [address] Sep, [facility] [address] [id number] [address] [place] [address], [place] [address] Sep, [facility] [address] [id number] [address] [place] [address], [place] [address] Sep, [facility] [address] [id number] [address] [place] [address], [place] [address] Sep, [facility] [address] [id number] [address] [place] [address], [place] [address] Aug, [facility] [address] [id number] [address] [place] [address], [place] [address] 25 Aug, 2012 [facility] [address] [id number] [address] [place] [address], [place] [address] 25 Aug, 2012 [facility] [address] [id number] [address] [place] [address], [place] [address] 21 Aug, 2012 [facility] [address] [id number] [address] [place] [address], [place] [address] 19 Aug, 2012 [facility] [address] [id number] [address] [place] [address], [place] [address] 18 Aug, 2012 [facility] [address] [id number] [address] [place] [address], [place] [address] 17 Aug, 2012 [facility] [address] [id number] [address] [place] [address], [place] [address] 15 Aug, 2012 [facility] [address] [id number] [address] [place] [address], [place] [address] 15 Aug, 2012 [facility] [address] [id number] [address] [place] [address], [place] [address] Aug, [facility] [address] [id number] [address] [place] [address], [place] [address] Aug, [facility] [address] [id number] [address] [place] [address], [place] [address] Aug, [facility] [address] [id number] [address] [place] [address], [place] [address] Jul, [facility] [address] [id number] [address] [place] [address], [place] [address] Jul, [facility] [address] [id number] [address] [place] [address], [place] [address] Jul, [facility] [address] [id number] [address] [place] [address], [place] [address] Jul, [facility] [address] [id number] [address] [place] [address], [place] [address] Jul, [facility] [address] [id number] [address] [place] [address], [place] [address] Jul, [facility] [address] [id number] [address] [place] [address], [place] [address] Jul, [facility] [address] [id number] [address] [place] [address], [place] [address] Jul, [facility] [address] [id number] [address] [place] [address], [place] [address] Jul, [facility] [address] [id number] [address] [place] [address], [place] [address] Jul, [facility] [address] [id number] [address] [place] [address], [place] [address] May, [facility] [address] [id number] [place] [id number] May, [facility] [address] [id number] [address] [place] [address], [place] [address] May, [facility] [address] [id number] [address] [place] [address] May, [facility] [address] [facility] [id number] [address] [place] [address] May, [facility] [address] [facility] [id number] [address] [place] [address] Apr, [facility] [address] [id number] [place] [id number] Apr, [facility] [address] [facility] [id number] [address] [place] [address] Apr, [facility] [address] [facility] [id number] [address] [place] [address] Mar, [facility] [address] [id number] [place] [id number] Mar, [facility] [address] [facility] [id number] [address] [place] [address] Mar, [facility] [address] [id number] [place] [id number] Feb, [facility] [address] [facility] [id number] [address] [place] [id number] Feb, [facility] [address] [facility] [id number] [address] [place] [phone] Feb, [facility] [address] [id number] [place] [id number] Feb, [facility] [address] [id number] [place] [id number] Feb, [facility] [address] [id number] [place] [id number] Jan, [facility] [address] [id number] [address] [place] [address], [place] [address] Jan, [facility] [address] [id number] [place] [id number] Jan, [facility] [address] [id number] [place] [id number] Jan, [facility] [address] [id number] [place] [id number] Jan, [facility] [address] [facility] [id number] [address] [place] [address], [place] [address] Jan, [facility] [address] [facility] [id number] [address] [place] [address], [place] [address] Jan, [facility] [address] [facility] [id number] [address] [place] [address], [place] [address] Aug, [facility] [address] [id number] [place] [id number] Aug, [facility] [address] [facility] [id number] [address] [place] [address], [place] [address] Jul, [facility] [address] [facility] [id number] [address] [place] [address], [place] [id number] Jul, [facility] [address] [facility] [id number] [address] [place] [address], [place] [id number] Jul, [facility] [address] [id number] [place] [id number] Jul, [facility] [address] [facility] [id number] [address] [place] [address], [place] [address] Jul, [facility] [address] [id number] [place] [id number] Jul, [facility] [address] [facility] [id number] [address] [place] [address], [place] [address] Jul, [facility] [address] [id number] [place] [id number] Jul, [facility] [address] [id number] [place] [id number] Jul, [facility] [address] [id number] [place] [id number] Jul, [facility] [address] [facility] [id number] [address] [place] [address], [place] [address] May, [facility] [address] [id number] [address] [place] [phone] May, [facility] [address] [id number] [address] [place] [phone] May, [facility] [address] [id number] [address] [place] [id number] Apr, [facility] [address] [id number] [address] [place] [id number] Jan, [facility] [address] [id number] [address] [place] [id number] Jan, [facility] [address] [id number] [address] [place] [id number] Dec, [facility] [address] [id number] [address] [place] [id number] Dec, [facility] [address] [id number] [address] [place] [phone] May, [facility] [address] [id number] [address] [place] [phone] Mar, [facility] [address] [id number] [address] [place] [phone] Mar, [facility] [address] [id number] [address] [place] [id number] Jan, IMMUNIZATIONS No Known Immunizations SOCIAL HISTORY [...]
--- OUTSIDE RECORDS SUMMARY | 2020-01-28 12:48 | XMS REPORT ---
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 Active 408450511 Problem History of venous thromboembolism V12.51 Active 500885955 Problem Cellulitis of unspecified part of limb L03.119 Active 081939523 Problem Gastroesophageal reflux disease without esophagitis K21.9 Active 315488560 Problem History of pulmonary embolism Z86.711 Active 456177904 Problem Pseudotumor cerebri G93.2 Active 27636860 Problem History of DVT (deep vein thrombosis) Z86.718 Active 018412222 ALLERGIES No Information ENCOUNTERS Encounter Location Date Diagnosis [place] [id number] [facility] [id number] [address] [place] [address] Apr, [facility] (current) use of 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 Z79.01 [facility] [address] [facility] [id number] [address] [place] [address] Apr, [facility] 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.01 [facility] [address] [facility] [id number] [address] [place] [address] Apr, Cellulitis of unspecified pa rt of limb L03.119 ; Allergic contact dermatitis due to adhesives L23.1 and Chronic pain syndrome G89.4 [facility] [address] [facility] [id number] [address] [place] [address] Apr, [place] [address] [place] [id number] [address] [place] [address] Apr, 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.01 ; Cellulitis of unspecified part of limb L03.119 ; Chronic pain syndrome G89.4 and Anxiety F41.9 [facility] [address] [place] [id number] [address] [place] [address] 16 Apr, 2015 [facility] [address] [place] [id number] [place] [address] Apr, [place] [address] [place] [id number] [place] [address] Mar, [place] [address] [address] Mar, [place] [address] [address] Mar, Sore throat J02.9 ; Gastroes ophageal reflux disease without esophagitis K21.9 ; Pseudotumor cerebri G93.2 ; Chronic pain syndrome G89.4 ; Choriocarcinoma C58 ; History of pulmonary embolism Z86.711 ; History of DVT (deep vein thrombosis) Z86.718 ; Anxiety F41.9 and Tachycardia R00.0 [place] [address] [address] Feb, Anxiety 300.00 and Chronic p ain 338.29 [place] [address] [place] [id number] [address] [place] [address] Feb, [place] [address] [place] [id number] [address] [place] [address] Feb, [place] [address] [address] Jan, 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 use of ant icoagulant therapy V58.61 and Dysuria 788.1 [place] [address] [place] [id number] [place] [address] Jan, Dysuria 788.1 [facility] [address] [place] [id number] [address] [place] [address] Jan, Anxiety 300.00 and Chronic p ain 338.29 [facility] [address] [place] [id number] [place] [address] Jan, [facility] [address] [address] Jan, [facility] [address] [address] Jan, [place] [address] [address] Dec, Weakness 780.79 [place] [address] [address] Dec, [facility] current use of ant icoagulant therapy V58.61 [place] [address] [address] Dec, Palpitations 785.1 ; Tremor 781.0 ; Weakness 780.79 ; [facility] current use of anticoagulant therapy V58.61 and Yeast vaginitis 112.1 [place] [address] [place] [id number] [address] [place] [address] Dec, [place] [address] [address] Dec, Cervicalgia 723.1 ; Tachycar yoseph 785.0 ; Pseudotumor cerebri 348.2 and History of venous thromboembolism V12.51 [place] [address] [address] Nov, [place] [address] [address] Nov, [place] [address] [address] Nov, Tachycardia 785.0 ; Pseudotu mor cerebri 348.2 ; Anxiety 300.00 and History of venous thromboembolism V12.51 [facility] [address] [id number] [address] [place] [address] Nov, [facility] [address] [id number] [address] [place] [address] 18 Nov, 2014 [facility] [address] [id number] [address] [place] [address] Nov, [facility] [address] [id number] [address] [place] [address] Nov, [facility] [address] [facility] [id number] [address] [place] [address] Nov, [facility] [address] [facility] [id number] [address] [place] [address] Nov, [facility] [address] [facility] [id number] [address] [place] [address] Nov, [facility] [address] [facility] [id number] [address] [place] [address] October, [facility] [address] [facility] [id number] [address] [place] [address] October, [facility] [address] [place] [id number] [address] [place] [address] October, Pain in thoracic spine 724.1 and Tachycardia 785.0 [facility] [address] [id number] [address] [place] [address] October, [facility] [address] [id number] [address] [place] [address] October, [facility] [address] [facility] [id number] [address] [place] [address] 14 Sep, 2014 [facility] [address] [facility] [id number] [address] [place] [address] Sep, [facility] [address] [id number] [facility] [place] [address] Aug, [facility] [address] [id number] [address] [place] [address], [place] [address] Aug, [facility] [address] [id number] [address] [place] [address], [place] [address] Aug, [facility] [address] [id number] [address] [place] [address], [place] [address] Aug, [facility] [address] [id number] [address] [place] [address], [place] [address] Aug, [facility] [address] [id number] [address] [place] [address], [place] [address] Aug, [facility] [address] [id number] [address] [place] [address], [place] [address] Aug, [facility] [address] [id number] [address] [place] [address], [place] [address] Aug, [facility] [address] [id number] [address] [place] [address], [place] [address] Aug, [facility] [address] [id number] [address] [place] [address], [place] [address] Aug, [facility] [address] [id number] [address] [place] [address], [place] [address] Aug, [facility] [address] [id number] [address] [place] [address], [place] [address] Aug, 2014 [facility] [address] [id number] [address] [place] [address], [place] [address] Jul, [facility] [address] [id number] [address] [place] [address], [place] [address] Jul, [facility] [address] [id number] [address] [place] [address], [place] [address] Jul, [facility] [address] [id number] [address] [place] [address], [place] [address] Jul, [facility] [address] [id number] [address] [place] [address], [place] [address] 23 Jul, 2014 [facility] [address] [id number] [address] [place] [address], [place] [address] 23 Jul, 2014 [facility] [address] [id number] [address] [place] [address], [place] [address] 23 Jul, 2014 [facility] [address] [id number] [address] [place] [address], [place] [address] 23 Jul, 2014 [facility] [address] [id number] [address] [place] [address], [place] [address] 20 Jul, 2014 [facility] [address] [id number] [address] [place] [address], [place] [address] 20 Jul, 2014 [facility] [address] [id number] [address] [place] [address], [place] [address] 19 Jul, 2014 [facility] [address] [id number] [address] [place] [address], [place] [address] 19 Jul, 2014 [facility] [address] [id number] [address] [place] [address], [place] [address] 17 Jul, 2014 [facility] [address] [id number] [address] [place] [address], [place] [address] 17 Jul, 2014 [facility] [address] [id number] [address] [place] [address], [place] [address] 16 Jul, 2014 [facility] [address] [id number] [address] [place] [address], [place] [address] 16 Jul, 2014 [facility] [address] [id number] [address] [place] [address], [place] [address] 16 Jul, 2014 [facility] [address] [id number] [address] [place] [address] 16 Jul, 2014 [facility] [address] [id number] [address] [place] [address] 13 Jul, 2014 [facility] [address] [id number] [address] [place] [address], [place] [address] Jul, [facility] [address] [id number] [address] [place] [address], [place] [address] Jul, [facility] [address] [id number] [address] [place] [address], [place] [address] Jul, 2014 [facility] [address] [id number] [address] [place] [address], [place] [address] Jul, 2014 [facility] [address] [id number] [address] [place] [address], [place] [address] Jul, [facility] [address] [id number] [address] [place] [address], [place] [address] Jul, [facility] [address] [id number] [address] [place] [address], [place] [address] Jul, [facility] [address] [id number] [address] [place] [address], [place] [address] Jul, [facility] [address] [id number] [address] [place] [address], [place] [address] Jul, [facility] [address] [id number] [address] [place] [address], [place] [address] Jul, [facility] [address] [id number] [address] [place] [address], [place] [address] Jul, [facility] [address] [id number] [address] [place] [address], [place] [address] Jun, [facility] [address] [id number] [address] [place] [address], [place] [address] Jun, [facility] [address] [id number] [address] [place] [address], [place] [address] Jun, [facility] [address] [id number] [address] [place] [address], [place] [address] Jun, [facility] [address] [id number] [address] [place] [address], [place] [address] Jun, [facility] [address] [id number] [address] [place] [address], [place] [address] Jun, [facility] [address] [id number] [address] [place] [address], [place] [address] Jun, [facility] [address] [id number] [address] [place] [address], [place] [address] Jun, [facility] [address] [id number] [address] [place] [address], [place] [address] Jun, [facility] [address] [id number] [address] [place] [address], [place] [address] Jun, [facility] [address] [id number] [address] [place] [address], [place] [address] Jun, [facility] [address] [id number] [address] [place] [address], [place] [address] Jun, [facility] [address] [id number] [address] [place] [address], [place] [address] Jun, [facility] [address] [id number] [address] [place] [address], [place] [address] Jun, [facility] [address] [id number] [address] [place] [address], [place] [address] Jun, [facility] [address] [id number] [address] [place] [address], [place] [address] Jun, [facility] [address] [id number] [address] [place] [address], [place] [address] Jun, [facility] [address] [id number] [address] [place] [address], [place] [address] Jun, [facility] [address] [id number] [address] [place] [address], [place] [address] Jun, [facility] [address] [id number] [address] [place] [address], [place] [address] Jun, [facility] [address] [id number] [address] [place] [address], [place] [address] May, [facility] [address] [id number] [address] [place] [address], [place] [address] May, [facility] [address] [id number] [address] [place] [address], [place] [address] May, [facility] [address] [id number] [address] [place] [address], [place] [address] May, [facility] [address] [id number] [address] [place] [address], [place] [address] May, [facility] [address] [id number] [address] [place] [address], [place] [address] May, [facility] [address] [id number] [address] [place] [address], [place] [address] May, [facility] [address] [id number] [address] [place] [address], [place] [address] May, [facility] [address] [id number] [address] [place] [address], [place] [address] May, [facility] [address] [id number] [address] [place] [address], [place] [address] May, [facility] [address] [id number] [address] [place] [address], [place] [address] May, [facility] [address] [id number] [address] [place] [address], [place] [address] 18 May, 2014 [facility] [address] [id number] [address] [place] [address], [place] [address] 18 May, 2014 [facility] [address] [id number] [address] [place] [address], [place] [address] 17 May, 2014 [facility] [address] [id number] [address] [place] [address], [place] [address] 16 May, 2014 [facility] [address] [id number] [address] [place] [address], [place] [address] 16 May, 2014 [facility] [address] [id number] [address] [place] [address], [place] [address] 15 May, 2014 [facility] [address] [id number] [address] [place] [address], [place] [address] 15 May, 2014 [facility] [address] [id number] [address] [place] [address], [place] [address] May, [facility] [address] [id number] [address] [place] [address], [place] [address] May, [facility] [address] [id number] [address] [place] [address], [place] [address] May, [facility] [address] [id number] [address] [place] [address], [place] [address] May, [facility] [address] [id number] [address] [place] [address], [place] [address] May, [facility] [address] [id number] [address] [place] [address], [place] [address] May, [facility] [address] [id number] [address] [place] [address], [place] [address] May, [facility] [address] [id number] [address] [place] [address], [place] [address] May, [facility] [address] [id number] [address] [place] [address], [place] [address] May, [facility] [address] [id number] [address] [place] [address], [place] [address] May, [facility] [address] [id number] [address] [place] [address], [place] [address] May, [facility] [address] [id number] [address] [place] [address], [place] [address] May, [facility] [address] [id number] [address] [place] [address], [place] [address] May, [facility] [address] [id number] [address] [place] [address], [place] [address] May, [facility] [address] [id number] [address] [place] [address], [place] [address] May, [facility] [address] [id number] [address] [place] [address], [place] [address] May, [facility] [address] [id number] [address] [place] [address], [place] [address] Apr, [facility] [address] [id number] [address] [place] [address], [place] [address] Apr, [facility] [address] [id number] [address] [place] [address], [place] [address] Apr, [facility] [address] [id number] [address] [place] [address], [place] [address] Apr, [facility] [address] [id number] [address] [place] [address], [place] [address] Apr, [facility] [address] [id number] [address] [place] [address], [place] [address] Apr, [facility] [address] [id number] [address] [place] [address], [place] [address] Apr, [facility] [address] [id number] [address] [place] [address], [place] [address] Apr, [facility] [address] [id number] [address] [place] [address], [place] [address] Apr, [facility] [address] [id number] [address] [place] [address], [place] [address] Apr, [facility] [address] [id number] [address] [place] [address], [place] [address] Mar, [facility] [address] [id number] [address] [place] [address], [place] [address] Mar, [facility] [address] [id number] [address] [place] [address] [address] Mar, [facility] [address] [id number] [address] [place] [address], [place] [address] 31 Mar, 2013 [facility] [address] [id number] [address] [place] [address], [place] [address] Mar, [facility] [address] [id number] [address] [place] [address], [place] [address] 30 Mar, 2014 [facility] [address] [id number] [address] [place] [address], [place] [address] Mar, [facility] [address] [id number] [address] [place] [address], [place] [address] Mar, [facility] [address] [id number] [address] [place] [address], [place] [address] Mar, [facility] [address] [id number] [address] [place] [address], [place] [address] Mar, [facility] [address] [id number] [address] [place] [id number] Mar, [facility] [address] [id number] [address] [place] [address] Mar, [facility] [address] [id number] [address] [place] [address] Mar, [facility] [address] [id number] [address] [place] [id number] Mar, 2013 [facility] [address] [id number] [address] [place] [id number] Mar, 2013 [facility] [address] [id number] [address] [place] [id number] Mar, [facility] [address] [id number] [address] [place] [id number] Mar, [facility] [address] [id number] [address] [place] [id number] Mar, 2013 [facility] [address] [id number] [address] [place] [address], [place] [address] 02 Mar, 2013 [facility] [address] [id number] [address] [place] [address], [place] [address] 02 Mar, 2013 [facility] [address] [id number] [address] [place] [address], [place] [address] 05 Sep, 2013 [facility] [address] [id number] [address] [place] [address], [place] [address] 05 Sep, 2013 [facility] [address] [id number] [address] [place] [address], [place] [address] 04 Sep, 2013 [facility] [address] [id number] [address] [place] [address], [place] [address] 04 Sep, 2013 [facility] [address] [id number] [address] [place] [address], [place] [address] 03 Feb, 2013 [facility] [address] [id number] [address] [place] [address], [place] [address] 03 Feb, 2013 [facility] [address] [id number] [address] [place] [address], [place] [address] 02 Feb, 2013 [facility] [address] [id number] [address] [place] [address], [place] [address] Feb, 2013 [facility] [address] [id number] [address] [place] [address], [place] [address] 02 Feb, 2013 [facility] [address] [id number] [address] [place] [address], [place] [address] Feb, 2013 [facility] [address] [id number] [address] [place] [address], [place] [address] Jan, [facility] [address] [id number] [address] [place] [address], [place] [address] Jan, [facility] [address] [id number] [address] [place] [address], [place] [address] Jan, [facility] [address] [id number] [address] [place] [address], [place] [address] Jan, [facility] [address] [id number] [facility] [place] [address] Jan, [facility] [address] [id number] [address] [place] [address], [place] [address] Jan, [facility] [address] [id number] [address] [place] [address], [place] [address] Jan, [facility] [address] [id number] [address] [place] [address], [place] [address] Jan, [facility] [address] [id number] [address] [place] [address], [place] [address] Jan, [facility] [address] [id number] [address] [place] [address], [place] [address] Jan, [facility] [address] [id number] [address] [place] [address], [place] [address] Jan, [facility] [address] [id number] [address] [place] [address], [place] [address] Jan, [facility] [address] [id number] [address] [place] [address], [place] [address] Dec, [facility] [address] [id number] [address] [place] [address], [place] [address] Dec, [facility] [address] [id number] [address] [place] [address], [place] [address] Dec, [facility] [address] [id number] [address] [place] [address], [place] [address] Dec, [facility] [address] [id number] [address] [place] [address], [place] [address] Dec, [facility] [address] [id number] [address] [place] [address], [place] [address] Dec, [facility] [address] [id number] [address] [place] [address], [place] [address] Dec, [facility] [address] [id number] [address] [place] [address], [place] [address] Dec, [facility] [address] [id number] [facility] [place] [address] Dec, [facility] [address] [id number] [place] [address], [place] [address] Dec, [facility] [address] [id number] [address] [place] [address], [place] [address] Dec, [facility] [address] [id number] [address] [place] [address], [place] [address] Dec, [facility] [address] [id number] [address] [place] [address], [place] [address] Nov, [facility] [address] [id number] [address] [place] [address], [place] [address] Nov, [facility] [address] [id number] [address] [place] [address], [place] [address] Nov, [facility] [address] [id number] [address] [place] [address], [place] [address] Nov, [facility] [address] [id number] [address] [place] [address], [place] [address] Nov, [facility] [address] [id number] [address] [place] [address], [place] [address] Nov, [facility] [address] [id number] [address] [place] [address], [place] [address] Nov, [facility] [address] [id number] [address] [place] [address], [place] [address] Nov, [facility] [address] [id number] [address] [place] [address], [place] [address] Nov, [facility] [address] [id number] [address] [place] [address], [place] [address] Nov, [facility] [address] [id number] [address] [place] [address], [place] [address] Nov, [facility] [address] [id number] [facility] [place] [address] Nov, [facility] [address] [id number] [address] [place] [address], [place] [address] Nov, [facility] [address] [id number] [address] [place] [address], [place] [address] Nov, [facility] [address] [id number] [address] [place] [address], [place] [address] October, [facility] [address] [id number] [address] [place] [address], [place] [address] October, [facility] [address] [id number] [address] [place] [address], [place] [address] October, [facility] [address] [id number] [address] [place] [address], [place] [address] October, [facility] [address] [id number] [address] [place] [address], [place] [address] October, [facility] [address] [id number] [address] [place] [address], [place] [address] October, [facility] [address] [id number] [address] [place] [address], [place] [address] October, [facility] [address] [id number] [address] [place] [address], [place] [address] October, [facility] [address] [id number] [address] [place] [address], [place] [address] October, [facility] [address] [id number] [address] [place] [address], [place] [address] October, [facility] [address] [id number] [address] [place] [address], [place] [address] October, [facility] [address] [id number] [address] [place] [address], [place] [address] October, [facility] [address] [id number] [address] [place] [address], [place] [address] Sep, [facility] [address] [id number] [facility] [place] [address] Sep, [facility] [address] [id number] [address] [place] [address], [place] [address] Sep, [facility] [address] [id number] [facility] [place] [address] Sep, [facility] [address] [id number] [address] [place] [address], [place] [address] Sep, [facility] [address] [id number] [address] [place] [address], [place] [address] Sep, [facility] [address] [id number] [address] [place] [address], [place] [address] Aug, [facility] [address] [id number] [address] [place] [address], [place] [address] Aug, [facility] [address] [id number] [address] [place] [address], [place] [address] Aug, [facility] [address] [id number] [address] [place] [address], [place] [address] Aug, [facility] [address] [id number] [address] [place] [address], [place] [address] Aug, [facility] [address] [id number] [address] [place] [address], [place] [address] Aug, [facility] [address] [id number] [address] [place] [address], [place] [address] Jul, [facility] [address] [id number] [address] [place] [address], [place] [address] Jul, [facility] [address] [id number] [address] [place] [address], [place] [address] Jul, [facility] [address] [id number] [address] [place] [address], [place] [address] Jul, [facility] [address] [id number] [address] [place] [address], [place] [address] 13 Jul, 2013 [facility] [address] [id number] [address] [place] [address], [place] [address] Jul, [facility] [address] [id number] [address] [place] [address], [place] [address] Jul, [facility] [address] [id number] [address] [place] [address], [place] [address] Jul, [facility] [address] [id number] [address] [place] [address], [place] [address] Jul, [facility] [address] [id number] [address] [place] [address], [place] [address] Jul, [facility] [address] [id number] [address] [place] [address], [place] [address] Jun, [facility] [address] [id number] [address] [place] [address], [place] [address] Jun, [facility] [address] [id number] [address] [place] [address], [place] [address] Jun, [facility] [address] [id number] [address] [place] [address], [place] [address] Jun, [facility] [address] [id number] [address] [place] [address], [place] [address] Jun, [facility] [address] [id number] [address] [place] [address], [place] [address] Jun, [facility] [address] [id number] [address] [place] [address], [place] [address] Jun, [facility] [address] [id number] [address] [place] [address], [place] [address] Jun, [facility] [address] [id number] [address] [place] [address], [place] [address] May, [facility] [address] [id number] [address] [place] [address], [place] [address] May, [facility] [address] [id number] [address] [place] [address], [place] [address] May, [facility] [address] [id number] [address] [place] [address], [place] [address] May, [facility] [address] [id number] [address] [place] [address], [place] [address] May, [facility] [address] [id number] [address] [place] [address], [place] [address] May, [facility] [address] [id number] [address] [place] [address], [place] [address] May, [facility] [address] [id number] [address] [place] [address], [place] [address] May, [facility] [address] [id number] [address] [place] [address], [place] [address] Apr, [facility] [address] [id number] [address] [place] [address] Apr, [facility] [address] [id number] [address] [place] [address], [place] [address] Apr, [facility] [address] [id number] [address] [place] [address] Apr, [facility] [address] [id number] [address] [place] [address] Apr, [facility] [address] [id number] [address] [place] [address] Apr, [facility] [address] [id number] [address] [place] [address], [place] [address] Mar, [facility] [address] [id number] [address] [place] [address] Mar, [facility] [address] [id number] [address] [place] [address], [place] [address] Mar, [facility] [address] [id number] [address] [place] [address], [place] [address] Mar, [facility] [address] [id number] [address] [place] [address], [place] [address] Mar, [facility] [address] [id number] [address] [place] [address], [place] [address] Mar, [facility] [address] [id number] [address] [place] [address], [place] [address] Mar, [facility] [address] [id number] [address] [place] [address], [place] [address] 30 Feb, 2012 [facility] [address] [id number] [address] [place] [address], [place] [address] 30 Feb, 2013 [facility] [address] [id number] [address] [place] [address], [place] [address] 27 Feb, 2013 [facility] [address] [id number] [address] [place] [address], [place] [address] Feb, 2012 [facility] [address] [id number] [address] [place] [address], [place] [address] Feb, [facility] [address] [id number] [address] [place] [address], [place] [address] Feb, [facility] [address] [id number] [address] [place] [address], [place] [address] Jan, [facility] [address] [id number] [address] [place] [address], [place] [address] Jan, [facility] [address] [id number] [address] [place] [address], [place] [address] Jan, [facility] [address] [id number] [address] [place] [address], [place] [address] Jan, [facility] [address] [id number] [address] [place] [address], [place] [address] Jan, [facility] [address] [id number] [address] [place] [address], [place] [address] Jan, [facility] [address] [id number] [address] [place] [address], [place] [address] Jan, [facility] [address] [id number] [address] [place] [address], [place] [address] Jan, [facility] [address] [id number] [address] [place] [address], [place] [address] Jan, [facility] [address] [id number] [address] [place] [address], [place] [address] Dec, [facility] [address] [id number] [address] [place] [address], [place] [address] Dec, [facility] [address] [id number] [address] [place] [address], [place] [address] Dec, [facility] [address] [id number] [address] [place] [address], [place] [address] Dec, [facility] [address] [id number] [address] [place] [address], [place] [address] Dec, [facility] [address] [id number] [address] [place] [address], [place] [address] Dec, [facility] [address] [id number] [address] [place] [address], [place] [address] Dec, [facility] [address] [id number] [address] [place] [address], [place] [address] Dec, [facility] [address] [id number] [address] [place] [address], [place] [address] Dec, [facility] [address] [id number] [address] [place] [address], [place] [address] Dec, [facility] [address] [id number] [address] [place] [address], [place] [address] Dec, [facility] [address] [id number] [address] [place] [address], [place] [address] Dec, [facility] [address] [id number] [address] [place] [address], [place] [address] Dec, [facility] [address] [id number] [address] [place] [address], [place] [address] Nov, [facility] [address] [id number] [address] [place] [address], [place] [address] Nov, [facility] [address] [id number] [address] [place] [address], [place] [address] Nov, [facility] [address] [id number] [address] [place] [address], [place] [address] Nov, [facility] [address] [id number] [address] [place] [address], [place] [address] October, [facility] [address] [id number] [address] [place] [address], [place] [address] October, [facility] [address] [id number] [address] [place] [address], [place] [address] October, [facility] [address] [id number] [address] [place] [address], [place] [address] October, [facility] [address] [id number] [address] [place] [address], [place] [address] October, [facility] [address] [id number] [address] [place] [address], [place] [address] October, [facility] [address] [id number] [address] [place] [address], [place] [address] Sep, [facility] [address] [id number] [address] [place] [address], [place] [address] Sep, [facility] [address] [id number] [address] [place] [address], [place] [address] Sep, [facility] [address] [id number] [address] [place] [address], [place] [address] Sep, [facility] [address] [id number] [address] [place] [address], [place] [address] Sep, [facility] [address] [id number] [facility] [place] [address] 16 Sep, 2012 [facility] [address] [id number] [address] [place] [address], [place] [address] 12 Sep, 2012 [facility] [address] [id number] [address] [place] [address], [place] [address] Sep, [facility] [address] [id number] [address] [place] [address], [place] [address] Sep, [facility] [address] [id number] [address] [place] [address], [place] [address] Sep, [facility] [address] [id number] [address] [place] [address], [place] [address] Sep, [facility] [address] [id number] [address] [place] [address], [place] [address] Aug, [facility] [address] [id number] [address] [place] [address], [place] [address] 25 Aug, 2012 [facility] [address] [id number] [address] [place] [address], [place] [address] 25 Aug, 2012 [facility] [address] [id number] [address] [place] [address], [place] [address] 21 Aug, 2012 [facility] [address] [id number] [address] [place] [address], [place] [address] 19 Aug, 2012 [facility] [address] [id number] [address] [place] [address], [place] [address] 18 Aug, 2012 [facility] [address] [id number] [address] [place] [address], [place] [address] 17 Aug, 2012 [facility] [address] [id number] [address] [place] [address], [place] [address] 15 Aug, 2012 [facility] [address] [id number] [address] [place] [address], [place] [address] 15 Aug, 2012 [facility] [address] [id number] [address] [place] [address], [place] [address] Aug, [facility] [address] [id number] [address] [place] [address], [place] [address] Aug, [facility] [address] [id number] [address] [place] [address], [place] [address] Aug, [facility] [address] [id number] [address] [place] [address], [place] [address] Jul, [facility] [address] [id number] [address] [place] [address], [place] [address] Jul, [facility] [address] [id number] [address] [place] [address], [place] [address] Jul, [facility] [address] [id number] [address] [place] [address], [place] [address] Jul, [facility] [address] [id number] [address] [place] [address], [place] [address] Jul, [facility] [address] [id number] [address] [place] [address], [place] [address] Jul, [facility] [address] [id number] [address] [place] [address], [place] [address] Jul, [facility] [address] [id number] [address] [place] [address], [place] [address] Jul, [facility] [address] [id number] [address] [place] [address], [place] [address] Jul, [facility] [address] [id number] [address] [place] [address], [place] [address] Jul, [facility] [address] [id number] [address] [place] [address], [place] [address] May, [facility] [address] [id number] [place] [id number] May, [facility] [address] [id number] [address] [place] [address], [place] [address] May, [facility] [address] [id number] [address] [place] [address] May, [facility] [address] [facility] [id number] [address] [place] [address] May, [facility] [address] [facility] [id number] [address] [place] [address] Apr, [facility] [address] [id number] [place] [id number] Apr, [facility] [address] [facility] [id number] [address] [place] [address] Apr, [facility] [address] [facility] [id number] [address] [place] [address] Mar, [facility] [address] [id number] [place] [id number] Mar, [facility] [address] [facility] [id number] [address] [place] [id number] Mar, [facility] [address] [id number] [place] [id number] Feb, [facility] [address] [facility] [id number] [address] [place] [id number] Feb, [facility] [address] [facility] [id number] [address] [place] [id number] Feb, [facility] [address] [id number] [place] [id number] Feb, [facility] [address] [id number] [place] [id number] Feb, [facility] [address] [id number] [place] [id number] Jan, [facility] [address] [id number] [address] [place] [address], [place] [id number] Jan, [facility] [address] [id number] [place] [id number] Jan, [facility] [address] [id number] [place] [id number] Jan, [facility] [address] [id number] [place] [id number] Jan, [facility] [address] [facility] [id number] [address] [place] [address], [place] [id number] Jan, [facility] [address] [facility] [id number] [address] [place] [address], [place] [id number] Jan, [facility] [address] [facility] [id number] [address] [place] [address], [place] [id number] Aug, [facility] [address] [id number] [place] [id number] Aug, [facility] [address] [facility] [id number] [address] [place] [address], [place] [id number] Jul, [facility] [address] [facility] [id number] [address] [place] [address], [place] [id number] Jul, [facility] [address] [facility] [id number] [address] [place] [address], [place] [address] Jul, [facility] [address] [id number] [place] [id number] Jul, [facility] [address] [facility] [id number] [address] [place] [address], [place] [id number] Jul, [facility] [address] [id number] [place] [id number] Jul, [facility] [address] [facility] [id number] [address] [place] [address], [place] [id number] Jul, [facility] [place] [address] [id number] [place] [id number] Jul, [facility] [address] [id number] [place] [id number] Jul, [facility] [address] [id number] [place] [id number] Jul, [facility] [address] [facility] [id number] [address] [place] [address], [place] [id number] May, [facility] [address] [id number] [address] [place] [id number] May, [facility] [address] [id number] [address] [place] [id number] May, [facility] [address] [id number] [address] [place] [id number] Apr, [facility] [address] [id number] [address] [place] [id number] Jan, [facility] [address] [id number] [address] [place] [id number] Jan, [facility] [address] [id number] [address] [place] [id number] Dec, [facility] [address] [id number] [address] [place] [id number] Dec, [facility] [address] [id number] [address] [place] [id number] May, [facility] [address] [id number] [address] [place] [id number] Mar, [facility] [address] [id number] [address] [place] [id number] Mar, [facility] [address] [id number] [address] [place] [id number] Jan, IMMUNIZATIONS No Known Immunizations SOCIAL HISTORY [...]
--- OUTSIDE RECORDS SUMMARY | 2020-01-28 12:49 | XMS REPORT ---
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 358762518 Problem History of venous thromboembolism V12.51 Active 028200257 Problem Cellulitis of unspecified part of limb L03.119 Active 203523379 Problem Gastroesophageal reflux disease without esophagitis K21.9 Active 585507531 Problem History of pulmonary embolism Z86.711 Active 467655809 Problem Pseudotumor cerebri G93.2 Active 81281644 Problem History of DVT (deep vein thrombosis) Z86.718 Active [id number] ALLERGIES No Information ENCOUNTERS Encounter Location Date Diagnosis [place] [id number] [facility] [id number] [address] [place] [address] Apr, group home (current) use of 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 Z79.01 [facility] [address] [facility] [id number] [address] [place] [address] Apr, group home 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.01 [facility] [address] [facility] [id number] [address] [place] [address] Apr, Cellulitis of unspecified pa rt of limb L03.119 ; Allergic contact dermatitis due to adhesives L23.1 and Chronic pain syndrome G89.4 [facility] [address] [facility] [id number] [address] [place] [address] Apr, [place] [address] [place] [id number] [address] [place] [address] Apr, 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 ; Cellulitis of unspecified part of limb L03.119 ; Chronic pain syndrome G89.4 and Anxiety F41.9 [facility] [address] [place] [id number] [address] [place] [address] 16 Apr, 2015 [facility] [address] [place] [id number] [place] [address] Apr, [place] [address] [place] [id number] [place] [address] Mar, [place] [address] [address] Mar, [place] [address] [address] Mar, Sore throat J02.9 ; Gastroes ophageal reflux disease without esophagitis K21.9 ; Pseudotumor cerebri G93.2 ; Chronic pain syndrome G89.4 ; Choriocarcinoma C58 ; History of pulmonary embolism Z86.711 ; History of DVT (deep vein thrombosis) Z86.718 ; Anxiety F41.9 and Tachycardia R00.0 [place] [address] [address] Feb, Anxiety 300.00 and Chronic p ain 338.29 [place] [address] [place] [id number] [address] [place] [address] Feb, [place] [address] [place] [id number] [address] [place] [address] Feb, [place] [address] [address] Jan, 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.61 and Dysuria 788.1 [place] [address] [place] [id number] [place] [address] Jan, Dysuria 788.1 [facility] [address] [place] [id number] [address] [place] [address] Jan, Anxiety 300.00 and Chronic p ain 338.29 [facility] [address] [place] [id number] [place] [address] Jan, [facility] [address] [address] Jan, [facility] [address] [address] Jan, [place] [address] [address] Dec, Weakness 780.79 [place] [address] [address] Dec, group home current use of ant icoagulant therapy V58.61 [place] [address] [address] Dec, Palpitations 785.1 ; Tremor 781.0 ; Weakness 780.79 ; group home current use of anticoagulant therapy V58.61 and Yeast vaginitis 112.1 [place] [address] [place] [id number] [address] [place] [address] Dec, [place] [address] [address] Dec, Cervicalgia 723.1 ; Tachycar yoseph 785.0 ; Pseudotumor cerebri 348.2 and History of venous thromboembolism V12.51 [place] [address] [address] Nov, [place] [address] [address] Nov, [place] [address] [address] Nov, Tachycardia 785.0 ; Pseudotu mor cerebri 348.2 ; Anxiety 300.00 and History of venous thromboembolism V12.51 [facility] [address] [id number] [address] [place] [address] Nov, [facility] [address] [id number] [address] [place] [address] 18 Nov, 2014 [facility] [address] [id number] [address] [place] [address] Nov, [facility] [address] [id number] [address] [place] [address] Nov, [facility] [address] [facility] [id number] [address] [place] [address] Nov, [facility] [address] [facility] [id number] [address] [place] [address] Nov, [facility] [address] [facility] [id number] [address] [place] [address] Nov, [facility] [address] [facility] [id number] [address] [place] [address] October, [facility] [address] [facility] [id number] [address] [place] [address] October, [facility] [address] [place] [id number] [address] [place] [address] October, Pain in thoracic spine 724.1 and Tachycardia 785.0 [facility] [address] [id number] [address] [place] [address] October, [facility] [address] [id number] [address] [place] [address] October, [facility] [address] [facility] [id number] [address] [place] [address] 14 Sep, 2014 [facility] [address] [facility] [id number] [address] [place] [address] Sep, [facility] [address] [id number] [facility] [place] [address] Aug, [facility] [address] [id number] [address] [place] [address], [place] [address] Aug, [facility] [address] [id number] [address] [place] [address], [place] [address] Aug, [facility] [address] [id number] [address] [place] [address], [place] [address] Aug, [facility] [address] [id number] [address] [place] [address], [place] [address] Aug, [facility] [address] [id number] [address] [place] [address], [place] [address] Aug, [facility] [address] [id number] [address] [place] [address], [place] [address] Aug, [facility] [address] [id number] [address] [place] [address], [place] [address] Aug, [facility] [address] [id number] [address] [place] [address], [place] [address] Aug, [facility] [address] [id number] [address] [place] [address], [place] [address] Aug, [facility] [address] [id number] [address] [place] [address], [place] [address] Aug, [facility] [address] [id number] [address] [place] [address], [place] [address] Aug, 2014 [facility] [address] [id number] [address] [place] [address], [place] [address] Jul, [facility] [address] [id number] [address] [place] [address], [place] [address] Jul, [facility] [address] [id number] [address] [place] [address], [place] [address] Jul, [facility] [address] [id number] [address] [place] [address], [place] [address] Jul, [facility] [address] [id number] [address] [place] [address], [place] [address] 23 Jul, 2014 [facility] [address] [id number] [address] [place] [address], [place] [address] 23 Jul, 2014 [facility] [address] [id number] [address] [place] [address], [place] [address] 23 Jul, 2014 [facility] [address] [id number] [address] [place] [address], [place] [address] 23 Jul, 2014 [facility] [address] [id number] [address] [place] [address], [place] [address] 20 Jul, 2014 [facility] [address] [id number] [address] [place] [address], [place] [address] 20 Jul, 2014 [facility] [address] [id number] [address] [place] [address], [place] [address] 19 Jul, 2014 [facility] [address] [id number] [address] [place] [address], [place] [address] 19 Jul, 2014 [facility] [address] [id number] [address] [place] [address], [place] [address] 17 Jul, 2014 [facility] [address] [id number] [address] [place] [address], [place] [address] 17 Jul, 2014 [facility] [address] [id number] [address] [place] [address], [place] [address] 16 Jul, 2014 [facility] [address] [id number] [address] [place] [address], [place] [address] 16 Jul, 2014 [facility] [address] [id number] [address] [place] [address], [place] [address] 16 Jul, 2014 [facility] [address] [id number] [address] [place] [address] 16 Jul, 2014 [facility] [address] [id number] [address] [place] [address] 13 Jul, 2014 [facility] [address] [id number] [address] [place] [address], [place] [address] Jul, [facility] [address] [id number] [address] [place] [address], [place] [address] Jul, [facility] [address] [id number] [address] [place] [address], [place] [address] Jul, 2014 [facility] [address] [id number] [address] [place] [address], [place] [address] Jul, 2014 [facility] [address] [id number] [address] [place] [address], [place] [address] Jul, [facility] [address] [id number] [address] [place] [address], [place] [address] Jul, [facility] [address] [id number] [address] [place] [address], [place] [address] Jul, [facility] [address] [id number] [address] [place] [address], [place] [address] Jul, [facility] [address] [id number] [address] [place] [address], [place] [address] Jul, [facility] [address] [id number] [address] [place] [address], [place] [address] Jul, [facility] [address] [id number] [address] [place] [address], [place] [address] Jul, [facility] [address] [id number] [address] [place] [address], [place] [address] Jun, [facility] [address] [id number] [address] [place] [address], [place] [address] Jun, [facility] [address] [id number] [address] [place] [address], [place] [address] Jun, [facility] [address] [id number] [address] [place] [address], [place] [address] Jun, [facility] [address] [id number] [address] [place] [address], [place] [address] Jun, [facility] [address] [id number] [address] [place] [address], [place] [address] Jun, [facility] [address] [id number] [address] [place] [address], [place] [address] Jun, [facility] [address] [id number] [address] [place] [address], [place] [address] Jun, [facility] [address] [id number] [address] [place] [address], [place] [address] Jun, [facility] [address] [id number] [address] [place] [address], [place] [address] Jun, [facility] [address] [id number] [address] [place] [address], [place] [address] Jun, [facility] [address] [id number] [address] [place] [address], [place] [address] Jun, [facility] [address] [id number] [address] [place] [address], [place] [address] Jun, [facility] [address] [id number] [address] [place] [address], [place] [address] Jun, [facility] [address] [id number] [address] [place] [address], [place] [address] Jun, [facility] [address] [id number] [address] [place] [address], [place] [address] Jun, [facility] [address] [id number] [address] [place] [address], [place] [address] Jun, [facility] [address] [id number] [address] [place] [address], [place] [address] Jun, [facility] [address] [id number] [address] [place] [address], [place] [address] Jun, [facility] [address] [id number] [address] [place] [address], [place] [address] Jun, [facility] [address] [id number] [address] [place] [address], [place] [address] May, [facility] [address] [id number] [address] [place] [address], [place] [address] May, [facility] [address] [id number] [address] [place] [address], [place] [address] May, [facility] [address] [id number] [address] [place] [address], [place] [address] May, [facility] [address] [id number] [address] [place] [address], [place] [address] May, [facility] [address] [id number] [address] [place] [address], [place] [address] May, [facility] [address] [id number] [address] [place] [address], [place] [address] May, [facility] [address] [id number] [address] [place] [address], [place] [address] May, [facility] [address] [id number] [address] [place] [address], [place] [address] May, [facility] [address] [id number] [address] [place] [address], [place] [address] May, [facility] [address] [id number] [address] [place] [address], [place] [address] May, [facility] [address] [id number] [address] [place] [address], [place] [address] 18 May, 2014 [facility] [address] [id number] [address] [place] [address], [place] [address] 18 May, 2014 [facility] [address] [id number] [address] [place] [address], [place] [address] 17 May, 2014 [facility] [address] [id number] [address] [place] [address], [place] [address] 16 May, 2014 [facility] [address] [id number] [address] [place] [address], [place] [address] 16 May, 2014 [facility] [address] [id number] [address] [place] [address], [place] [address] 15 May, 2014 [facility] [address] [id number] [address] [place] [address], [place] [address] 15 May, 2014 [facility] [address] [id number] [address] [place] [address], [place] [address] May, [facility] [address] [id number] [address] [place] [address], [place] [address] May, [facility] [address] [id number] [address] [place] [address], [place] [address] May, [facility] [address] [id number] [address] [place] [address], [place] [address] May, [facility] [address] [id number] [address] [place] [address], [place] [address] May, [facility] [address] [id number] [address] [place] [address], [place] [address] May, [facility] [address] [id number] [address] [place] [address], [place] [address] May, [facility] [address] [id number] [address] [place] [address], [place] [address] May, [facility] [address] [id number] [address] [place] [address], [place] [address] May, [facility] [address] [id number] [address] [place] [address], [place] [address] May, [facility] [address] [id number] [address] [place] [address], [place] [address] May, [facility] [address] [id number] [address] [place] [address], [place] [address] May, [facility] [address] [id number] [address] [place] [address], [place] [address] May, [facility] [address] [id number] [address] [place] [address], [place] [address] May, [facility] [address] [id number] [address] [place] [address], [place] [address] May, [facility] [address] [id number] [address] [place] [address], [place] [address] May, [facility] [address] [id number] [address] [place] [address], [place] [address] Apr, [facility] [address] [id number] [address] [place] [address], [place] [address] Apr, [facility] [address] [id number] [address] [place] [address], [place] [address] Apr, [facility] [address] [id number] [address] [place] [address], [place] [address] Apr, [facility] [address] [id number] [address] [place] [address], [place] [address] Apr, [facility] [address] [id number] [address] [place] [address], [place] [address] Apr, [facility] [address] [id number] [address] [place] [address], [place] [address] Apr, [facility] [address] [id number] [address] [place] [address], [place] [address] Apr, [facility] [address] [id number] [address] [place] [address], [place] [address] Apr, [facility] [address] [id number] [address] [place] [address], [place] [address] Apr, [facility] [address] [id number] [address] [place] [address], [place] [address] Mar, [facility] [address] [id number] [address] [place] [address], [place] [address] Mar, [facility] [address] [id number] [address] [place] [address] [address] Mar, [facility] [address] [id number] [address] [place] [address], [place] [address] 31 Mar, 2013 [facility] [address] [id number] [address] [place] [address], [place] [address] Mar, [facility] [address] [id number] [address] [place] [address], [place] [address] 30 Mar, 2014 [facility] [address] [id number] [address] [place] [address], [place] [address] Mar, [facility] [address] [id number] [address] [place] [address], [place] [address] Mar, [facility] [address] [id number] [address] [place] [address], [place] [address] Mar, [facility] [address] [id number] [address] [place] [address], [place] [address] Mar, [facility] [address] [id number] [address] [place] [id number] Mar, [facility] [address] [id number] [address] [place] [id number] Mar, [facility] [address] [id number] [address] [place] [id number] Mar, [facility] [address] [id number] [address] [place] [id number] Mar, 2013 [facility] [address] [id number] [address] [place] [id number] Mar, 2013 [facility] [address] [id number] [address] [place] [id number] Mar, [facility] [address] [id number] [address] [place] [id number] Mar, [facility] [address] [id number] [address] [place] [id number] Mar, 2013 [facility] [address] [id number] [address] [place] [address], [place] [id number] 02 Mar, 2013 [facility] [address] [id number] [address] [place] [address], [place] [address] 02 Mar, 2013 [facility] [address] [id number] [address] [place] [address], [place] [id number] 05 Sep, 2013 [facility] [address] [id number] [address] [place] [address], [place] [id number] 05 Sep, 2013 [facility] [address] [id number] [address] [place] [address], [place] [id number] 04 Sep, 2013 [facility] [address] [id number] [address] [place] [address], [place] [id number] 04 Sep, 2013 [facility] [address] [id number] [address] [place] [address], [place] [id number] 03 Feb, 2013 [facility] [address] [id number] [address] [place] [address], [place] [id number] 03 Feb, 2013 [facility] [address] [id number] [address] [place] [address], [place] [address] 02 Feb, 2013 [facility] [address] [id number] [address] [place] [address], [place] [address] Feb, 2013 [facility] [address] [id number] [address] [place] [address], [place] [id number] 02 Feb, 2013 [facility] [address] [id number] [address] [place] [address], [place] [id number] Feb, 2013 [facility] [address] [id number] [address] [place] [address], [place] [address] Jan, [facility] [address] [id number] [address] [place] [address], [place] [address] Jan, [facility] [address] [id number] [address] [place] [address], [place] [address] Jan, [facility] [address] [id number] [address] [place] [address], [place] [address] Jan, [facility] [address] [id number] [facility] [place] [address] Jan, [facility] [address] [id number] [address] [place] [address], [place] [id number] Jan, [facility] [address] [id number] [address] [place] [address], [place] [address] Jan, [facility] [address] [id number] [address] [place] [address], [place] [address] Jan, [facility] [address] [id number] [address] [place] [address], [place] [address] Jan, [facility] [address] [id number] [address] [place] [address], [place] [address] Jan, [facility] [address] [id number] [address] [place] [address], [place] [address] Jan, [facility] [address] [id number] [address] [place] [address], [place] [address] Jan, [facility] [address] [id number] [address] [place] [address], [place] [address] Dec, [facility] [address] [id number] [address] [place] [address], [place] [id number] Dec, [facility] [address] [id number] [address] [place] [address], [place] [id number] Dec, [facility] [address] [id number] [address] [place] [address], [place] [id number] Dec, [facility] [address] [id number] [address] [place] [address], [place] [address] Dec, [facility] [address] [id number] [address] [place] [address], [place] [address] Dec, [facility] [address] [id number] [address] [place] [address], [place] [address] Dec, [facility] [address] [id number] [address] [place] [address], [place] [address] Dec, [facility] [address] [id number] [facility] [place] [address] Dec, [facility] [address] [id number] [address] [place] [address], [place] [address] Dec, [facility] [address] [id number] [address] [place] [address], [place] [address] Dec, [facility] [address] [id number] [address] [place] [address], [place] [address] Dec, [facility] [address] [id number] [address] [place] [address], [place] [address] Nov, [facility] [address] [id number] [address] [place] [address], [place] [address] Nov, [facility] [address] [id number] [address] [place] [address], [place] [address] Nov, [facility] [address] [id number] [address] [place] [address], [place] [address] Nov, [facility] [address] [id number] [address] [place] [address], [place] [address] Nov, [facility] [address] [id number] [address] [place] [address], [place] [address] Nov, [facility] [address] [id number] [address] [place] [address], [place] [address] Nov, [facility] [address] [id number] [address] [place] [address], [place] [address] Nov, [facility] [address] [id number] [address] [place] [address], [place] [address] Nov, [facility] [address] [id number] [address] [place] [address], [place] [address] Nov, [facility] [address] [id number] [address] [place] [address], [place] [address] Nov, [facility] [address] [id number] [facility] [place] [address] Nov, [facility] [address] [id number] [address] [place] [address], [place] [address] Nov, [facility] [address] [id number] [address] [place] [address], [place] [address] Nov, [facility] [address] [id number] [address] [place] [address], [place] [address] October, [facility] [address] [id number] [address] [place] [address], [place] [address] October, [facility] [address] [id number] [address] [place] [address], [place] [address] October, [facility] [address] [id number] [address] [place] [address], [place] [address] October, [facility] [address] [id number] [address] [place] [address], [place] [address] October, [facility] [address] [id number] [address] [place] [address], [place] [address] October, [facility] [address] [id number] [address] [place] [address], [place] [address] October, [facility] [address] [id number] [address] [place] [address], [place] [address] October, [facility] [address] [id number] [address] [place] [address], [place] [address] October, [facility] [address] [id number] [address] [place] [address], [place] [address] October, [facility] [address] [id number] [address] [place] [address], [place] [address] October, [facility] [address] [id number] [address] [place] [address], [place] [address] October, [facility] [address] [id number] [address] [place] [address], [place] [address] Sep, [facility] [address] [id number] [facility] [place] [address] Sep, [facility] [address] [id number] [address] [place] [address], [place] [address] Sep, [facility] [address] [id number] [facility] [place] [address] Sep, [facility] [address] [id number] [address] [place] [address], [place] [address] Sep, [facility] [address] [id number] [address] [place] [address], [place] [address] Sep, [facility] [address] [id number] [address] [place] [address], [place] [address] Aug, [facility] [address] [id number] [address] [place] [address], [place] [address] Aug, [facility] [address] [id number] [address] [place] [address], [place] [address] Aug, [facility] [address] [id number] [address] [place] [address], [place] [address] Aug, [facility] [address] [id number] [address] [place] [address], [place] [address] Aug, [facility] [address] [id number] [address] [place] [address], [place] [address] Aug, [facility] [address] [id number] [address] [place] [address], [place] [address] Jul, [facility] [address] [id number] [address] [place] [address], [place] [address] Jul, [facility] [address] [id number] [address] [place] [address], [place] [address] Jul, [facility] [address] [id number] [address] [place] [address], [place] [address] Jul, [facility] [address] [id number] [address] [place] [address], [place] [address] 13 Jul, 2013 [facility] [address] [id number] [address] [place] [address], [place] [address] Jul, [facility] [address] [id number] [address] [place] [address], [place] [address] Jul, [facility] [address] [id number] [address] [place] [address], [place] [address] Jul, [facility] [address] [id number] [address] [place] [address], [place] [address] Jul, [facility] [address] [id number] [address] [place] [address], [place] [address] Jul, [facility] [address] [id number] [address] [place] [address], [place] [address] Jun, [facility] [address] [id number] [address] [place] [address], [place] [address] Jun, [facility] [address] [id number] [address] [place] [address], [place] [address] Jun, [facility] [address] [id number] [address] [place] [address], [place] [address] Jun, [facility] [address] [id number] [address] [place] [address], [place] [address] Jun, [facility] [address] [id number] [address] [place] [address], [place] [address] Jun, [facility] [address] [id number] [address] [place] [address], [place] [address] Jun, [facility] [address] [id number] [address] [place] [address], [place] [address] Jun, [facility] [address] [id number] [address] [place] [address], [place] [address] May, [facility] [address] [id number] [address] [place] [address], [place] [address] May, [facility] [address] [id number] [address] [place] [address], [place] [address] May, [facility] [address] [id number] [address] [place] [address], [place] [address] May, [facility] [address] [id number] [address] [place] [address], [place] [address] May, [facility] [address] [id number] [address] [place] [address], [place] [address] May, [facility] [address] [id number] [address] [place] [address], [place] [address] May, [facility] [address] [id number] [address] [place] [address], [place] [address] May, [facility] [address] [id number] [address] [place] [address], [place] [address] Apr, [facility] [address] [id number] [address] [place] [address] Apr, [facility] [address] [id number] [address] [place] [address], [place] [address] Apr, [facility] [address] [id number] [address] [place] [address] Apr, [facility] [address] [id number] [address] [place] [address] Apr, [facility] [address] [id number] [address] [place] [address] Apr, [facility] [address] [id number] [address] [place] [address], [place] [address] Mar, [facility] [address] [id number] [address] [place] [address] Mar, [facility] [address] [id number] [address] [place] [address], [place] [address] Mar, [facility] [address] [id number] [address] [place] [address], [place] [address] Mar, [facility] [address] [id number] [address] [place] [address], [place] [address] Mar, [facility] [address] [id number] [address] [place] [address], [place] [address] Mar, [facility] [address] [id number] [address] [place] [address], [place] [address] Mar, [facility] [address] [id number] [address] [place] [address], [place] [address] 30 Feb, 2012 [facility] [address] [id number] [address] [place] [address], [place] [address] 30 Feb, 2013 [facility] [address] [id number] [address] [place] [address], [place] [address] 27 Feb, 2013 [facility] [address] [id number] [address] [place] [address], [place] [address] Feb, 2012 [facility] [address] [id number] [address] [place] [address], [place] [address] Feb, [facility] [address] [id number] [address] [place] [address], [place] [address] Feb, [facility] [address] [id number] [address] [place] [address], [place] [address] Jan, [facility] [address] [id number] [address] [place] [address], [place] [address] Jan, [facility] [address] [id number] [address] [place] [address], [place] [address] Jan, [facility] [address] [id number] [address] [place] [address], [place] [address] Jan, [facility] [address] [id number] [address] [place] [address], [place] [address] Jan, [facility] [address] [id number] [address] [place] [address], [place] [address] Jan, [facility] [address] [id number] [address] [place] [address], [place] [address] Jan, [facility] [address] [id number] [address] [place] [address], [place] [address] Jan, [facility] [address] [id number] [address] [place] [address], [place] [address] Jan, [facility] [address] [id number] [address] [place] [address], [place] [address] Dec, [facility] [address] [id number] [address] [place] [address], [place] [address] Dec, [facility] [address] [id number] [address] [place] [address], [place] [address] Dec, [facility] [address] [id number] [address] [place] [address], [place] [address] Dec, [facility] [address] [id number] [address] [place] [address], [place] [address] Dec, [facility] [address] [id number] [address] [place] [address], [place] [address] Dec, [facility] [address] [id number] [address] [place] [address], [place] [address] Dec, [facility] [address] [id number] [address] [place] [address], [place] [address] Dec, [facility] [address] [id number] [address] [place] [address], [place] [address] Dec, [facility] [address] [id number] [address] [place] [address], [place] [address] Dec, [facility] [address] [id number] [address] [place] [address], [place] [address] Dec, [facility] [address] [id number] [address] [place] [address], [place] [address] Dec, [facility] [address] [id number] [address] [place] [address], [place] [address] Dec, [facility] [address] [id number] [address] [place] [address], [place] [address] Nov, [facility] [address] [id number] [address] [place] [address], [place] [address] Nov, [facility] [address] [id number] [address] [place] [address], [place] [address] Nov, [facility] [address] [id number] [address] [place] [address], [place] [address] Nov, [facility] [address] [id number] [address] [place] [address], [place] [address] October, [facility] [address] [id number] [address] [place] [address], [place] [address] October, [facility] [address] [id number] [address] [place] [address], [place] [address] October, [facility] [address] [id number] [address] [place] [address], [place] [address] October, [facility] [address] [id number] [address] [place] [address], [place] [address] October, [facility] [address] [id number] [address] [place] [address], [place] [address] October, [facility] [address] [id number] [address] [place] [address], [place] [address] Sep, [facility] [address] [id number] [address] [place] [address], [place] [address] Sep, [facility] [address] [id number] [address] [place] [address], [place] [address] Sep, [facility] [address] [id number] [address] [place] [address], [place] [address] Sep, [facility] [address] [id number] [address] [place] [address], [place] [address] Sep, [facility] [address] [id number] [facility] [place] [address] 16 Sep, 2012 [facility] [address] [id number] [address] [place] [address], [place] [address] 12 Sep, 2012 [facility] [address] [id number] [address] [place] [address], [place] [address] Sep, [facility] [address] [id number] [address] [place] [address], [place] [address] Sep, [facility] [address] [id number] [address] [place] [address], [place] [address] Sep, [facility] [address] [id number] [address] [place] [address], [place] [address] Sep, [facility] [address] [id number] [address] [place] [address], [place] [address] Aug, [facility] [address] [id number] [address] [place] [address], [place] [address] 25 Aug, 2012 [facility] [address] [id number] [address] [place] [address], [place] [address] 25 Aug, 2012 [facility] [address] [id number] [address] [place] [address], [place] [address] 21 Aug, 2012 [facility] [address] [id number] [address] [place] [address], [place] [address] 19 Aug, 2012 [facility] [address] [id number] [address] [place] [address], [place] [address] 18 Aug, 2012 [facility] [address] [id number] [address] [place] [address], [place] [address] 17 Aug, 2012 [facility] [address] [id number] [address] [place] [address], [place] [address] 15 Aug, 2012 [facility] [address] [id number] [address] [place] [address], [place] [address] 15 Aug, 2012 [facility] [address] [id number] [address] [place] [address], [place] [address] Aug, [facility] [address] [id number] [address] [place] [address], [place] [address] Aug, [facility] [address] [id number] [address] [place] [address], [place] [address] Aug, [facility] [address] [id number] [address] [place] [address], [place] [address] Jul, [facility] [address] [id number] [address] [place] [address], [place] [address] Jul, [facility] [address] [id number] [address] [place] [address], [place] [address] Jul, [facility] [address] [id number] [address] [place] [address], [place] [address] Jul, [facility] [address] [id number] [address] [place] [address], [place] [address] Jul, [facility] [address] [id number] [address] [place] [address], [place] [address] Jul, [facility] [address] [id number] [address] [place] [address], [place] [address] Jul, [facility] [address] [id number] [address] [place] [address], [place] [address] Jul, [facility] [address] [id number] [address] [place] [address], [place] [address] Jul, [facility] [address] [id number] [address] [place] [address], [place] [address] Jul, [facility] [address] [id number] [address] [place] [address], [place] [address] May, [facility] [address] [id number] [place] [id number] May, [facility] [address] [id number] [address] [place] [address], [place] [address] May, [facility] [address] [id number] [address] [place] [id number] May, [facility] [address] [facility] [id number] [address] [place] [address] May, [facility] [address] [facility] [id number] [address] [place] [address] Apr, [facility] [place] [address] [id number] [place] [id number] Apr, [facility] [address] [facility] [id number] [address] [place] [address] Apr, [facility] [address] [facility] [id number] [address] [place] [address] Mar, [facility] [place] [address] [id number] [place] [id number] Mar, [facility] [address] [facility] [id number] [address] [place] [address] Mar, [facility] [address] [id number] [place] [id number] Feb, [facility] [address] [facility] [id number] [address] [place] [id number] Feb, [facility] [address] [facility] [id number] [address] [place] [id number] Feb, [facility] [place] [address] [id number] [place] [id number] Feb, [facility] [address] [id number] [place] [id number] Feb, [facility] [address] [id number] [place] [id number] Jan, [facility] [address] [id number] [address] [place] [address], [place] [id number] Jan, [facility] [address] [id number] [place] [id number] Jan, [facility] [address] [id number] [place] [id number] Jan, [facility] [address] [id number] [place] [id number] Jan, [facility] [address] [facility] [id number] [address] [place] [address], [place] [id number] Jan, [facility] [address] [facility] [id number] [address] [place] [address], [place] [id number] Jan, [facility] [address] [facility] [id number] [address] [place] [address], [place] [id number] Aug, [facility] [address] [id number] [place] [id number] Aug, [facility] [address] [facility] [id number] [address] [place] [address], [place] [id number] Jul, [facility] [address] [facility] [id number] [address] [place] [address], [place] [id number] Jul, [facility] [address] [facility] [id number] [address] [place] [address], [place] [id number] Jul, [facility] [address] [id number] [place] [id number] Jul, [facility] [address] [facility] [id number] [address] [place] [address], [place] [id number] Jul, [facility] [address] [id number] [place] [id number] Jul, [facility] [address] [facility] [id number] [address] [place] [address], [place] [id number] Jul, [facility] [address] [id number] [place] [id number] Jul, [facility] [address] [id number] [place] [id number] Jul, [facility] [address] [id number] [place] [id number] Jul, [facility] [address] [facility] [id number] [address] [place] [address], [place] [id number] May, [facility] [address] [id number] [address] [place] [id number] May, [facility] [address] [id number] [address] [place] [id number] May, [facility] [address] [id number] [address] [place] [id number] Apr, [facility] [address] [id number] [address] [place] [id number] Jan, [facility] [address] [id number] [address] [place] [id number] Jan, [facility] [address] [id number] [address] [place] [id number] Dec, [facility] [address] [id number] [address] [place] [id number] Dec, [facility] [address] [id number] [address] [place] [id number] May, [facility] [address] [id number] [address] [place] [id number] Mar, [facility] [address] [id number] [address] [place] [id number] Mar, [facility] [address] [id number] [address] [place] [id number] Jan, IMMUNIZATIONS No Known Immunizations SOCIAL HISTORY Never Assessed REASON FOR VISIT PLAN OF CARE VITAL SIGNS MEDICATIONS Unknown Medications RESULTS No Results PROCEDURES Procedure Date Ordered Result Body Site PROTHROMBIN TIME May 20, 2014 INSTRUCTIONS MEDICATIONS ADMINISTERED No Known Medications [...]
--- OUTSIDE RECORDS SUMMARY | 2020-01-28 12:49 | XMS REPORT ---
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 Active 335845341 Problem History of venous thromboembolism V12.51 Active 943199867 Problem Cellulitis of unspecified part of limb L03.119 Active 130556894 Problem Gastroesophageal reflux disease without esophagitis K21.9 Active 116144062 Problem History of pulmonary embolism Z86.711 Active 887599721 Problem Pseudotumor cerebri G93.2 Active 24824027 Problem History of DVT (deep vein thrombosis) Z86.718 Active 946498678 ALLERGIES No Information ENCOUNTERS Encounter Location Date Diagnosis [place] [id number] [facility] [id number] [address] [place] [id number] Apr, alf (current) use of 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 Z79.01 [facility] [address] [facility] [id number] [address] [place] [address] Apr, alf 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.01 [facility] [address] [facility] [id number] [address] [place] [id number] Apr, Cellulitis of unspecified pa rt of limb L03.119 ; Allergic contact dermatitis due to adhesives L23.1 and Chronic pain syndrome G89.4 [facility] [address] [facility] [id number] [address] [place] [address] Apr, [place] [address] [place] [id number] [address] [place] [address] Apr, 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 manager 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.01 ; Cellulitis of unspecified part of limb L03.119 ; Chronic pain syndrome G89.4 and Anxiety F41.9 [facility] [address] [place] [id number] [address] [place] [id number] 16 Apr, 2015 [facility] [address] [place] [id number] [place] [phone] Apr, [place] [address] [place] [id number] [place] [address] Mar, [place] [address] [address] Mar, [place] [address] [address] Mar, Sore throat J02.9 ; Gastroes ophageal reflux disease without esophagitis K21.9 ; Pseudotumor cerebri G93.2 ; Chronic pain syndrome G89.4 ; Choriocarcinoma C58 ; History of pulmonary embolism Z86.711 ; History of DVT (deep vein thrombosis) Z86.718 ; Anxiety F41.9 and Tachycardia R00.0 [place] [address] [address] Feb, Anxiety 300.00 and Chronic p ain 338.29 [place] [address] [place] [id number] [address] [place] [phone] Feb, [place] [address] [place] [id number] [address] [place] [phone] Feb, [place] [address] [address] Jan, 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 manager current use of ant icoagulant therapy V58.61 and Dysuria 788.1 [place] [address] [place] [id number] [place] [address] Jan, Dysuria 788.1 [facility] [address] [place] [id number] [address] [place] [address] Jan, Anxiety 300.00 and Chronic p ain 338.29 [facility] [address] [place] [id number] [place] [phone] Jan, [facility] [address] [address] Jan, [facility] [address] [address] Jan, [place] [address] [address] Dec, Weakness 780.79 [place] [address] [address] Dec, alf current use of ant icoagulant therapy V58.61 [place] [address] [address] Dec, Palpitations 785.1 ; Tremor 781.0 ; Weakness 780.79 ; alf current use of anticoagulant therapy V58.61 and Yeast vaginitis 112.1 [place] [address] [place] [id number] [address] [place] [phone] Dec, [place] [address] [address] Dec, Cervicalgia 723.1 ; Tachycar yoseph 785.0 ; Pseudotumor cerebri 348.2 and History of venous thromboembolism V12.51 [place] [address] [address] Nov, [place] [address] [address] Nov, [place] [address] [address] Nov, Tachycardia 785.0 ; Pseudotu mor cerebri 348.2 ; Anxiety 300.00 and History of venous thromboembolism V12.51 [facility] [address] [id number] [address] [place] [phone] Nov, [facility] [address] [id number] [address] [place] [id number] 18 Nov, 2014 [facility] [address] [id number] [address] [place] [address] Nov, [facility] [address] [id number] [address] [place] [phone] Nov, [facility] [address] [facility] [id number] [address] [place] [address] Nov, [facility] [address] [facility] [id number] [address] [place] [phone] Nov, [facility] [address] [facility] [id number] [address] [place] [address] Nov, [facility] [address] [facility] [id number] [address] [place] [phone] October, [facility] [address] [facility] [id number] [address] [place] [phone] October, [facility] [address] [place] [id number] [address] [place] [address] October, Pain in thoracic spine 724.1 and Tachycardia 785.0 [facility] [address] [id number] [address] [place] [phone] October, [facility] [address] [id number] [address] [place] [phone] October, [facility] [address] [facility] [id number] [address] [place] [id number] 14 Sep, 2014 [facility] [address] [facility] [id number] [address] [place] [phone] Sep, [facility] [address] [id number] [facility] [place] [address] Aug, [facility] [address] [id number] [address] [place] [address], [place] [address] Aug, [facility] [address] [id number] [address] [place] [address], [place] [address] Aug, [facility] [address] [id number] [address] [place] [address], [place] [address] Aug, [facility] [address] [id number] [address] [place] [address], [place] [address] Aug, [facility] [address] [id number] [address] [place] [address], [place] [address] Aug, [facility] [address] [id number] [address] [place] [address], [place] [address] Aug, [facility] [address] [id number] [address] [place] [address], [place] [address] Aug, [facility] [address] [id number] [address] [place] [address], [place] [address] Aug, [facility] [address] [id number] [address] [place] [address], [place] [address] Aug, [facility] [address] [id number] [address] [place] [address], [place] [address] Aug, [facility] [address] [id number] [address] [place] [address], [place] [address] Aug, 2014 [facility] [address] [id number] [address] [place] [address], [place] [address] Jul, [facility] [address] [id number] [address] [place] [address], [place] [address] Jul, [facility] [address] [id number] [address] [place] [address], [place] [address] Jul, [facility] [address] [id number] [address] [place] [address], [place] [address] Jul, [facility] [address] [id number] [address] [place] [address], [place] [address] 23 Jul, 2014 [facility] [address] [id number] [address] [place] [address], [place] [address] 23 Jul, 2014 [facility] [address] [id number] [address] [place] [address], [place] [address] 23 Jul, 2014 [facility] [address] [id number] [address] [place] [address], [place] [address] 23 Jul, 2014 [facility] [address] [id number] [address] [place] [address], [place] [address] 20 Jul, 2014 [facility] [address] [id number] [address] [place] [address], [place] [address] 20 Jul, 2014 [facility] [address] [id number] [address] [place] [address], [place] [address] 19 Jul, 2014 [facility] [address] [id number] [address] [place] [address], [place] [address] 19 Jul, 2014 [facility] [address] [id number] [address] [place] [address], [place] [address] 17 Jul, 2014 [facility] [address] [id number] [address] [place] [address], [place] [address] 17 Jul, 2014 [facility] [address] [id number] [address] [place] [address], [place] [address] 16 Jul, 2014 [facility] [address] [id number] [address] [place] [address], [place] [address] 16 Jul, 2014 [facility] [address] [id number] [address] [place] [address], [place] [address] 16 Jul, 2014 [facility] [address] [id number] [address] [place] [phone] 16 Jul, 2014 [facility] [address] [id number] [address] [place] [id number] 13 Jul, 2014 [facility] [address] [id number] [address] [place] [address], [place] [address] Jul, [facility] [address] [id number] [address] [place] [address], [place] [address] Jul, [facility] [address] [id number] [address] [place] [address], [place] [address] Jul, 2014 [facility] [address] [id number] [address] [place] [address], [place] [address] Jul, 2014 [facility] [address] [id number] [address] [place] [address], [place] [address] Jul, [facility] [address] [id number] [address] [place] [address], [place] [address] Jul, [facility] [address] [id number] [address] [place] [address], [place] [address] Jul, [facility] [address] [id number] [address] [place] [address], [place] [address] Jul, [facility] [address] [id number] [address] [place] [address], [place] [address] Jul, [facility] [address] [id number] [address] [place] [address], [place] [address] Jul, [facility] [address] [id number] [address] [place] [address], [place] [address] Jul, [facility] [address] [id number] [address] [place] [address], [place] [address] Jun, [facility] [address] [id number] [address] [place] [address], [place] [address] Jun, [facility] [address] [id number] [address] [place] [address], [place] [address] Jun, [facility] [address] [id number] [address] [place] [address], [place] [address] Jun, [facility] [address] [id number] [address] [place] [address], [place] [address] Jun, [facility] [address] [id number] [address] [place] [address], [place] [address] Jun, [facility] [address] [id number] [address] [place] [address], [place] [address] Jun, [facility] [address] [id number] [address] [place] [address], [place] [address] Jun, [facility] [address] [id number] [address] [place] [address], [place] [address] Jun, [facility] [address] [id number] [address] [place] [address], [place] [address] Jun, [facility] [address] [id number] [address] [place] [address], [place] [address] Jun, [facility] [address] [id number] [address] [place] [address], [place] [address] Jun, [facility] [address] [id number] [address] [place] [address], [place] [address] Jun, [facility] [address] [id number] [address] [place] [address], [place] [address] Jun, [facility] [address] [id number] [address] [place] [address], [place] [address] Jun, [facility] [address] [id number] [address] [place] [address], [place] [address] Jun, [facility] [address] [id number] [address] [place] [address], [place] [address] Jun, [facility] [address] [id number] [address] [place] [address], [place] [address] Jun, [facility] [address] [id number] [address] [place] [address], [place] [address] Jun, [facility] [address] [id number] [address] [place] [address], [place] [address] Jun, [facility] [address] [id number] [address] [place] [address], [place] [address] May, [facility] [address] [id number] [address] [place] [address], [place] [address] May, [facility] [address] [id number] [address] [place] [address], [place] [address] May, [facility] [address] [id number] [address] [place] [address], [place] [address] May, [facility] [address] [id number] [address] [place] [address], [place] [address] May, [facility] [address] [id number] [address] [place] [address], [place] [address] May, [facility] [address] [id number] [address] [place] [address], [place] [address] May, [facility] [address] [id number] [address] [place] [address], [place] [address] May, [facility] [address] [id number] [address] [place] [address], [place] [address] May, [facility] [address] [id number] [address] [place] [address], [place] [address] May, [facility] [address] [id number] [address] [place] [address], [place] [address] May, [facility] [address] [id number] [address] [place] [address], [place] [address] 18 May, 2014 [facility] [address] [id number] [address] [place] [address], [place] [address] 18 May, 2014 [facility] [address] [id number] [address] [place] [address], [place] [address] 17 May, 2014 [facility] [address] [id number] [address] [place] [address], [place] [address] 16 May, 2014 [facility] [address] [id number] [address] [place] [address], [place] [address] 16 May, 2014 [facility] [address] [id number] [address] [place] [address], [place] [address] 15 May, 2014 [facility] [address] [id number] [address] [place] [address], [place] [address] 15 May, 2014 [facility] [address] [id number] [address] [place] [address], [place] [address] May, [facility] [address] [id number] [address] [place] [address], [place] [address] May, [facility] [address] [id number] [address] [place] [address], [place] [address] May, [facility] [address] [id number] [address] [place] [address], [place] [address] May, [facility] [address] [id number] [address] [place] [address], [place] [address] May, [facility] [address] [id number] [address] [place] [address], [place] [address] May, [facility] [address] [id number] [address] [place] [address], [place] [address] May, [facility] [address] [id number] [address] [place] [address], [place] [address] May, [facility] [address] [id number] [address] [place] [address], [place] [address] May, [facility] [address] [id number] [address] [place] [address], [place] [address] May, [facility] [address] [id number] [address] [place] [address], [place] [address] May, [facility] [address] [id number] [address] [place] [address], [place] [address] May, [facility] [address] [id number] [address] [place] [address], [place] [address] May, [facility] [address] [id number] [address] [place] [address], [place] [address] May, [facility] [address] [id number] [address] [place] [address], [place] [address] May, [facility] [address] [id number] [address] [place] [address], [place] [address] May, [facility] [address] [id number] [address] [place] [address], [place] [address] Apr, [facility] [address] [id number] [address] [place] [address], [place] [address] Apr, [facility] [address] [id number] [address] [place] [address], [place] [address] Apr, [facility] [address] [id number] [address] [place] [address], [place] [address] Apr, [facility] [address] [id number] [address] [place] [address], [place] [address] Apr, [facility] [address] [id number] [address] [place] [address], [place] [address] Apr, [facility] [address] [id number] [address] [place] [address], [place] [address] Apr, [facility] [address] [id number] [address] [place] [address], [place] [address] Apr, [facility] [address] [id number] [address] [place] [address], [place] [address] Apr, [facility] [address] [id number] [address] [place] [address], [place] [address] Apr, [facility] [address] [id number] [address] [place] [address], [place] [address] Mar, [facility] [address] [id number] [address] [place] [address], [place] [address] Mar, [facility] [address] [id number] [address] [place] [address] [address] Mar, [facility] [address] [id number] [address] [place] [address], [place] [address] 31 Mar, 2013 [facility] [address] [id number] [address] [place] [address], [place] [address] Mar, [facility] [address] [id number] [address] [place] [address], [place] [address] 30 Mar, 2014 [facility] [address] [id number] [address] [place] [address], [place] [address] Mar, [facility] [address] [id number] [address] [place] [address], [place] [address] Mar, [facility] [address] [id number] [address] [place] [address], [place] [address] Mar, [facility] [address] [id number] [address] [place] [address], [place] [address] Mar, [facility] [address] [id number] [address] [place] [id number] Mar, [facility] [address] [id number] [address] [place] [id number] Mar, [facility] [address] [id number] [address] [place] [id number] Mar, [facility] [address] [id number] [address] [place] [id number] Mar, 2013 [facility] [address] [id number] [address] [place] [id number] Mar, 2013 [facility] [address] [id number] [address] [place] [id number] Mar, [facility] [address] [id number] [address] [place] [phone] Mar, [facility] [address] [id number] [address] [place] [phone] Mar, 2013 [facility] [address] [id number] [address] [place] [address], [place] [address] 02 Mar, 2013 [facility] [address] [id number] [address] [place] [address], [place] [address] 02 Mar, 2013 [facility] [address] [id number] [address] [place] [address], [place] [address] 05 Sep, 2013 [facility] [address] [id number] [address] [place] [address], [place] [id number] 05 Sep, 2013 [facility] [address] [id number] [address] [place] [address], [place] [id number] 04 Sep, 2013 [facility] [address] [id number] [address] [place] [address], [place] [id number] 04 Sep, 2013 [facility] [address] [id number] [address] [place] [address], [place] [id number] 03 Feb, 2013 [facility] [address] [id number] [address] [place] [address], [place] [address] 03 Feb, 2013 [facility] [address] [id number] [address] [place] [address], [place] [id number] 02 Feb, 2013 [facility] [address] [id number] [address] [place] [address], [place] [id number] Feb, 2013 [facility] [address] [id number] [address] [place] [address], [place] [id number] 02 Feb, 2013 [facility] [address] [id number] [address] [place] [address], [place] [address] Feb, 2013 [facility] [address] [id number] [address] [place] [address], [place] [address] Jan, [facility] [address] [id number] [address] [place] [address], [place] [address] Jan, [facility] [address] [id number] [address] [place] [address], [place] [id number] Jan, [facility] [address] [id number] [address] [place] [address], [place] [address] Jan, [facility] [address] [id number] [facility] [place] [address] Jan, [facility] [address] [id number] [address] [place] [address], [place] [id number] Jan, [facility] [address] [id number] [address] [place] [address], [place] [address] Jan, [facility] [address] [id number] [address] [place] [address], [place] [address] Jan, [facility] [address] [id number] [address] [place] [address], [place] [address] Jan, [facility] [address] [id number] [address] [place] [address], [place] [address] Jan, [facility] [address] [id number] [address] [place] [address], [place] [address] Jan, [facility] [address] [id number] [address] [place] [address], [place] [address] Jan, [facility] [address] [id number] [address] [place] [address], [place] [address] Dec, [facility] [address] [id number] [address] [place] [address], [place] [address] Dec, [facility] [address] [id number] [address] [place] [address], [place] [address] Dec, [facility] [address] [id number] [address] [place] [address], [place] [address] Dec, [facility] [address] [id number] [address] [place] [address], [place] [address] Dec, [facility] [address] [id number] [address] [place] [address], [place] [address] Dec, [facility] [address] [id number] [address] [place] [address], [place] [address] Dec, [facility] [address] [id number] [address] [place] [address], [place] [address] Dec, [facility] [address] [id number] [facility] [place] [address] Dec, [facility] [address] [id number] [address] [place] [address], [place] [address] Dec, [facility] [address] [id number] [address] [place] [address], [place] [address] Dec, [facility] [address] [id number] [address] [place] [address], [place] [address] Dec, [facility] [address] [id number] [address] [place] [address], [place] [address] Nov, [facility] [address] [id number] [address] [place] [address], [place] [address] Nov, [facility] [address] [id number] [address] [place] [address], [place] [address] Nov, [facility] [address] [id number] [address] [place] [address], [place] [address] Nov, [facility] [address] [id number] [address] [place] [address], [place] [address] Nov, [facility] [address] [id number] [address] [place] [address], [place] [address] Nov, [facility] [address] [id number] [address] [place] [address], [place] [address] Nov, [facility] [address] [id number] [address] [place] [address], [place] [address] Nov, [facility] [address] [id number] [address] [place] [address], [place] [address] Nov, [facility] [address] [id number] [address] [place] [address], [place] [address] Nov, [facility] [address] [id number] [address] [place] [address], [place] [address] Nov, [facility] [address] [id number] [facility] [place] [address] Nov, [facility] [address] [id number] [address] [place] [address], [place] [address] Nov, [facility] [address] [id number] [address] [place] [address], [place] [address] Nov, [facility] [address] [id number] [address] [place] [address], [place] [address] October, [facility] [address] [id number] [address] [place] [address], [place] [address] October, [facility] [address] [id number] [address] [place] [address], [place] [address] October, [facility] [address] [id number] [address] [place] [address], [place] [address] October, [facility] [address] [id number] [address] [place] [address], [place] [address] October, [facility] [address] [id number] [address] [place] [address], [place] [address] October, [facility] [address] [id number] [address] [place] [address], [place] [address] October, [facility] [address] [id number] [address] [place] [address], [place] [address] October, [facility] [address] [id number] [address] [place] [address], [place] [address] October, [facility] [address] [id number] [address] [place] [address], [place] [address] October, [facility] [address] [id number] [address] [place] [address], [place] [address] October, [facility] [address] [id number] [address] [place] [address], [place] [address] October, [facility] [address] [id number] [address] [place] [address], [place] [address] Sep, [facility] [address] [id number] [facility] [place] [address] Sep, [facility] [address] [id number] [address] [place] [address], [place] [address] Sep, [facility] [address] [id number] [facility] [place] [address] Sep, [facility] [address] [id number] [address] [place] [address], [place] [address] Sep, [facility] [address] [id number] [address] [place] [address], [place] [address] Sep, [facility] [address] [id number] [address] [place] [address], [place] [address] Aug, [facility] [address] [id number] [address] [place] [address], [place] [address] Aug, [facility] [address] [id number] [address] [place] [address], [place] [address] Aug, [facility] [address] [id number] [address] [place] [address], [place] [address] Aug, [facility] [address] [id number] [address] [place] [address], [place] [address] Aug, [facility] [address] [id number] [address] [place] [address], [place] [address] Aug, [facility] [address] [id number] [address] [place] [address], [place] [address] Jul, [facility] [address] [id number] [address] [place] [address], [place] [address] Jul, [facility] [address] [id number] [address] [place] [address], [place] [address] Jul, [facility] [address] [id number] [address] [place] [address], [place] [address] Jul, [facility] [address] [id number] [address] [place] [address], [place] [address] 13 Jul, 2013 [facility] [address] [id number] [address] [place] [address], [place] [address] Jul, [facility] [address] [id number] [address] [place] [address], [place] [address] Jul, [facility] [address] [id number] [address] [place] [address], [place] [address] Jul, [facility] [address] [id number] [address] [place] [address], [place] [address] Jul, [facility] [address] [id number] [address] [place] [address], [place] [address] Jul, [facility] [address] [id number] [address] [place] [address], [place] [address] Jun, [facility] [address] [id number] [address] [place] [address], [place] [address] Jun, [facility] [address] [id number] [address] [place] [address], [place] [address] Jun, [facility] [address] [id number] [address] [place] [address], [place] [address] Jun, [facility] [address] [id number] [address] [place] [address], [place] [address] Jun, [facility] [address] [id number] [address] [place] [address], [place] [address] Jun, [facility] [address] [id number] [address] [place] [address], [place] [address] Jun, [facility] [address] [id number] [address] [place] [address], [place] [address] Jun, [facility] [address] [id number] [address] [place] [address], [place] [address] May, [facility] [address] [id number] [address] [place] [address], [place] [address] May, [facility] [address] [id number] [address] [place] [address], [place] [address] May, [facility] [address] [id number] [address] [place] [address], [place] [address] May, [facility] [address] [id number] [address] [place] [address], [place] [address] May, [facility] [address] [id number] [address] [place] [address], [place] [address] May, [facility] [address] [id number] [address] [place] [address], [place] [address] May, [facility] [address] [id number] [address] [place] [address], [place] [address] May, [facility] [address] [id number] [address] [place] [address], [place] [address] Apr, [facility] [address] [id number] [address] [place] [address] Apr, [facility] [address] [id number] [address] [place] [address], [place] [address] Apr, [facility] [address] [id number] [address] [place] [address] Apr, [facility] [address] [id number] [address] [place] [address] Apr, [facility] [address] [id number] [address] [place] [address] Apr, [facility] [address] [id number] [address] [place] [address], [place] [address] Mar, [facility] [address] [id number] [address] [place] [address] Mar, [facility] [address] [id number] [address] [place] [address], [place] [address] Mar, [facility] [address] [id number] [address] [place] [address], [place] [address] Mar, [facility] [address] [id number] [address] [place] [address], [place] [address] Mar, [facility] [address] [id number] [address] [place] [address], [place] [address] Mar, [facility] [address] [id number] [address] [place] [address], [place] [address] Mar, [facility] [address] [id number] [address] [place] [address], [place] [address] 30 Feb, 2012 [facility] [address] [id number] [address] [place] [address], [place] [address] 30 Feb, 2013 [facility] [address] [id number] [address] [place] [address], [place] [address] 27 Feb, 2013 [facility] [address] [id number] [address] [place] [address], [place] [address] Feb, 2012 [facility] [address] [id number] [address] [place] [address], [place] [address] Feb, [facility] [address] [id number] [address] [place] [address], [place] [address] Feb, [facility] [address] [id number] [address] [place] [address], [place] [address] Jan, [facility] [address] [id number] [address] [place] [address], [place] [address] Jan, [facility] [address] [id number] [address] [place] [address], [place] [address] Jan, [facility] [address] [id number] [address] [place] [address], [place] [address] Jan, [facility] [address] [id number] [address] [place] [address], [place] [address] Jan, [facility] [address] [id number] [address] [place] [address], [place] [address] Jan, [facility] [address] [id number] [address] [place] [address], [place] [address] Jan, [facility] [address] [id number] [address] [place] [address], [place] [address] Jan, [facility] [address] [id number] [address] [place] [address], [place] [address] Jan, [facility] [address] [id number] [address] [place] [address], [place] [address] Dec, [facility] [address] [id number] [address] [place] [address], [place] [address] Dec, [facility] [address] [id number] [address] [place] [address], [place] [address] Dec, [facility] [address] [id number] [address] [place] [address], [place] [address] Dec, [facility] [address] [id number] [address] [place] [address], [place] [address] Dec, [facility] [address] [id number] [address] [place] [address], [place] [address] Dec, [facility] [address] [id number] [address] [place] [address], [place] [address] Dec, [facility] [address] [id number] [address] [place] [address], [place] [address] Dec, [facility] [address] [id number] [address] [place] [address], [place] [address] Dec, [facility] [address] [id number] [address] [place] [address], [place] [address] Dec, [facility] [address] [id number] [address] [place] [address], [place] [address] Dec, [facility] [address] [id number] [address] [place] [address], [place] [address] Dec, [facility] [address] [id number] [address] [place] [address], [place] [address] Dec, [facility] [address] [id number] [address] [place] [address], [place] [address] Nov, [facility] [address] [id number] [address] [place] [address], [place] [address] Nov, [facility] [address] [id number] [address] [place] [address], [place] [address] Nov, [facility] [address] [id number] [address] [place] [address], [place] [address] Nov, [facility] [address] [id number] [address] [place] [address], [place] [address] October, [facility] [address] [id number] [address] [place] [address], [place] [address] October, [facility] [address] [id number] [address] [place] [address], [place] [address] October, [facility] [address] [id number] [address] [place] [address], [place] [address] October, [facility] [address] [id number] [address] [place] [address], [place] [address] October, [facility] [address] [id number] [address] [place] [address], [place] [address] October, [facility] [address] [id number] [address] [place] [address], [place] [address] Sep, [facility] [address] [id number] [address] [place] [address], [place] [address] Sep, [facility] [address] [id number] [address] [place] [address], [place] [address] Sep, [facility] [address] [id number] [address] [place] [address], [place] [address] Sep, [facility] [address] [id number] [address] [place] [address], [place] [address] Sep, [facility] [address] [id number] [facility] [place] [address] 16 Sep, 2012 [facility] [address] [id number] [address] [place] [address], [place] [address] 12 Sep, 2012 [facility] [address] [id number] [address] [place] [address], [place] [address] Sep, [facility] [address] [id number] [address] [place] [address], [place] [address] Sep, [facility] [address] [id number] [address] [place] [address], [place] [address] Sep, [facility] [address] [id number] [address] [place] [address], [place] [address] Sep, [facility] [address] [id number] [address] [place] [address], [place] [address] Aug, [facility] [address] [id number] [address] [place] [address], [place] [address] 25 Aug, 2012 [facility] [address] [id number] [address] [place] [address], [place] [address] 25 Aug, 2012 [facility] [address] [id number] [address] [place] [address], [place] [address] 21 Aug, 2012 [facility] [address] [id number] [address] [place] [address], [place] [address] 19 Aug, 2012 [facility] [address] [id number] [address] [place] [address], [place] [address] 18 Aug, 2012 [facility] [address] [id number] [address] [place] [address], [place] [address] 17 Aug, 2012 [facility] [address] [id number] [address] [place] [address], [place] [address] 15 Aug, 2012 [facility] [address] [id number] [address] [place] [address], [place] [address] 15 Aug, 2012 [facility] [address] [id number] [address] [place] [address], [place] [address] Aug, [facility] [address] [id number] [address] [place] [address], [place] [address] Aug, [facility] [address] [id number] [address] [place] [address], [place] [address] Aug, [facility] [address] [id number] [address] [place] [address], [place] [address] Jul, [facility] [address] [id number] [address] [place] [address], [place] [address] Jul, [facility] [address] [id number] [address] [place] [address], [place] [address] Jul, [facility] [address] [id number] [address] [place] [address], [place] [address] Jul, [facility] [address] [id number] [address] [place] [address], [place] [address] Jul, [facility] [address] [id number] [address] [place] [address], [place] [address] Jul, [facility] [address] [id number] [address] [place] [address], [place] [address] Jul, [facility] [address] [id number] [address] [place] [address], [place] [address] Jul, [facility] [address] [id number] [address] [place] [address], [place] [address] Jul, [facility] [address] [id number] [address] [place] [address], [place] [address] Jul, [facility] [address] [id number] [address] [place] [address], [place] [address] May, [facility] [address] [id number] [place] [id number] May, [facility] [address] [id number] [address] [place] [address], [place] [address] May, [facility] [address] [id number] [address] [place] [phone] May, [facility] [address] [facility] [id number] [address] [place] [id number] May, [facility] [address] [facility] [id number] [address] [place] [phone] Apr, [facility] [place] [address] [id number] [place] [id number] Apr, [facility] [address] [facility] [id number] [address] [place] [id number] Apr, [facility] [address] [facility] [id number] [address] [place] [phone] Mar, [facility] [address] [id number] [place] [id number] Mar, [facility] [address] [facility] [id number] [address] [place] [id number] Mar, [facility] [address] [id number] [place] [id number] Feb, [facility] [address] [facility] [id number] [address] [place] [id number] Feb, [facility] [address] [facility] [id number] [address] [place] [phone] Feb, [facility] [place] [address] [id number] [place] [id number] Feb, [facility] [address] [id number] [place] [id number] Feb, [facility] [address] [id number] [place] [id number] Jan, [facility] [address] [id number] [address] [place] [address], [place] [address] Jan, [facility] [place] [address] [id number] [place] [id number] Jan, [facility] [address] [id number] [place] [id number] Jan, [facility] [place] [address] [id number] [place] [id number] Jan, [facility] [address] [facility] [id number] [address] [place] [address], [place] [address] Jan, [facility] [address] [facility] [id number] [address] [place] [address], [place] [address] Jan, [facility] [address] [facility] [id number] [address] [place] [address], [place] [address] Aug, [facility] [address] [id number] [place] [id number] Aug, [facility] [address] [facility] [id number] [address] [place] [address], [place] [id number] Jul, [facility] [address] [facility] [id number] [address] [place] [address], [place] [id number] Jul, [facility] [address] [facility] [id number] [address] [place] [address], [place] [address] Jul, [facility] [place] [address] [id number] [place] [id number] Jul, [facility] [address] [facility] [id number] [address] [place] [address], [place] [id number] Jul, [facility] [address] [id number] [place] [id number] Jul, [facility] [address] [facility] [id number] [address] [place] [address], [place] [address] Jul, [facility] [address] [id number] [place] [id number] Jul, [facility] [place] [address] [id number] [place] [id number] Jul, [facility] [address] [id number] [place] [id number] Jul, [facility] [address] [facility] [id number] [address] [place] [address], [place] [address] May, [facility] [address] [id number] [address] [place] [id number] May, [facility] [address] [id number] [address] [place] [id number] May, [facility] [address] [id number] [address] [place] [id number] Apr, [facility] [address] [id number] [address] [place] [id number] Jan, [facility] [address] [id number] [address] [place] [id number] Jan, [facility] [address] [id number] [place] [phone] Dec, [facility] [address] [id number] [address] [place] [phone] Dec, [facility] [address] [id number] [address] [place] [phone] May, [facility] [address] [id number] [address] [place] [phone] Mar, [facility] [address] [id number] [address] [place] [phone] Mar, [facility] [address] [id number] [address] [place] [phone] Jan, IMMUNIZATIONS No Known Immunizations SOCIAL HISTORY Never Assessed REASON FOR VISIT PLAN OF CARE VITAL SIGNS MEDICATIONS Unknown Medications RESULTS No Results PROCEDURES Procedure Date Ordered Result Body Site PROTHROMBIN TIME May 27, 2014 INSTRUCTIONS MEDICATIONS ADMINISTERED No Known Medications [...]
--- OUTSIDE RECORDS SUMMARY | 2020-01-28 12:49 | XMS REPORT ---
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 145290071 Problem History of venous thromboembolism V12.51 Active 324474154 Problem Cellulitis of unspecified part of limb L03.119 Active 515435827 Problem Gastroesophageal reflux disease without esophagitis K21.9 Active 413629317 Problem History of pulmonary embolism Z86.711 Active 238917284 Problem Pseudotumor cerebri G93.2 Active 04487668 Problem History of DVT (deep vein thrombosis) Z86.718 Active 414838780 ALLERGIES No Information ENCOUNTERS Encounter Location Date Diagnosis [place] [id number] [facility] [id number] [address] [place] [address] Apr, detention (current) use of 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 Z79.01 [facility] [address] [facility] [id number] [address] [place] [address] Apr, detention 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.01 [facility] [address] [facility] [id number] [address] [place] [address] Apr, Cellulitis of unspecified pa rt of limb L03.119 ; Allergic contact dermatitis due to adhesives L23.1 and Chronic pain syndrome G89.4 [facility] [address] [facility] [id number] [address] [place] [address] Apr, [place] [address] [place] [id number] [address] [place] [address] Apr, 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 ; Cellulitis of unspecified part of limb L03.119 ; Chronic pain syndrome G89.4 and Anxiety F41.9 [facility] [address] [place] [id number] [address] [place] [address] 16 Apr, 2015 [facility] [address] [place] [id number] [place] [address] Apr, [place] [address] [place] [id number] [place] [address] Mar, [place] [address] [address] Mar, [place] [address] [address] Mar, Sore throat J02.9 ; Gastroes ophageal reflux disease without esophagitis K21.9 ; Pseudotumor cerebri G93.2 ; Chronic pain syndrome G89.4 ; Choriocarcinoma C58 ; History of pulmonary embolism Z86.711 ; History of DVT (deep vein thrombosis) Z86.718 ; Anxiety F41.9 and Tachycardia R00.0 [place] [address] [address] Feb, Anxiety 300.00 and Chronic p ain 338.29 [place] [address] [place] [id number] [address] [place] [address] Feb, [place] [address] [place] [id number] [address] [place] [address] Feb, [place] [address] [address] Jan, 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 and Dysuria 788.1 [place] [address] [place] [id number] [place] [address] Jan, Dysuria 788.1 [facility] [address] [place] [id number] [address] [place] [address] Jan, Anxiety 300.00 and Chronic p ain 338.29 [facility] [address] [place] [id number] [place] [address] Jan, [facility] [address] [address] Jan, [facility] [address] [address] Jan, [place] [address] [address] Dec, Weakness 780.79 [place] [address] [address] Dec, detention current use of ant icoagulant therapy V58.61 [place] [address] [address] Dec, Palpitations 785.1 ; Tremor 781.0 ; Weakness 780.79 ; detention current use of anticoagulant therapy V58.61 and Yeast vaginitis 112.1 [place] [address] [place] [id number] [address] [place] [address] Dec, [place] [address] [address] Dec, Cervicalgia 723.1 ; Tachycar yoseph 785.0 ; Pseudotumor cerebri 348.2 and History of venous thromboembolism V12.51 [place] [address] [address] Nov, [place] [address] [address] Nov, [place] [address] [address] Nov, Tachycardia 785.0 ; Pseudotu mor cerebri 348.2 ; Anxiety 300.00 and History of venous thromboembolism V12.51 [facility] [address] [id number] [address] [place] [address] Nov, [facility] [address] [id number] [address] [place] [address] 18 Nov, 2014 [facility] [address] [id number] [address] [place] [address] Nov, [facility] [address] [id number] [address] [place] [address] Nov, [facility] [address] [facility] [id number] [address] [place] [address] Nov, [facility] [address] [facility] [id number] [address] [place] [address] Nov, [facility] [address] [facility] [id number] [address] [place] [address] Nov, [facility] [address] [facility] [id number] [address] [place] [address] October, [facility] [address] [facility] [id number] [address] [place] [address] October, [facility] [address] [place] [id number] [address] [place] [address] October, Pain in thoracic spine 724.1 and Tachycardia 785.0 [facility] [address] [id number] [address] [place] [address] October, [facility] [address] [id number] [address] [place] [address] October, [facility] [address] [facility] [id number] [address] [place] [address] 14 Sep, 2014 [facility] [address] [facility] [id number] [address] [place] [address] Sep, [facility] [address] [id number] [facility] [place] [address] Aug, [facility] [address] [id number] [address] [place] [address], [place] [address] Aug, [facility] [address] [id number] [address] [place] [address], [place] [address] Aug, [facility] [address] [id number] [address] [place] [address], [place] [address] Aug, [facility] [address] [id number] [address] [place] [address], [place] [address] Aug, [facility] [address] [id number] [address] [place] [address], [place] [address] Aug, [facility] [address] [id number] [address] [place] [address], [place] [address] Aug, [facility] [address] [id number] [address] [place] [address], [place] [address] Aug, [facility] [address] [id number] [address] [place] [address], [place] [address] Aug, [facility] [address] [id number] [address] [place] [address], [place] [address] Aug, [facility] [address] [id number] [address] [place] [address], [place] [address] Aug, [facility] [address] [id number] [address] [place] [address], [place] [address] Aug, 2014 [facility] [address] [id number] [address] [place] [address], [place] [address] Jul, [facility] [address] [id number] [address] [place] [address], [place] [address] Jul, [facility] [address] [id number] [address] [place] [address], [place] [address] Jul, [facility] [address] [id number] [address] [place] [address], [place] [address] Jul, [facility] [address] [id number] [address] [place] [address], [place] [address] 23 Jul, 2014 [facility] [address] [id number] [address] [place] [address], [place] [address] 23 Jul, 2014 [facility] [address] [id number] [address] [place] [address], [place] [address] 23 Jul, 2014 [facility] [address] [id number] [address] [place] [address], [place] [address] 23 Jul, 2014 [facility] [address] [id number] [address] [place] [address], [place] [address] 20 Jul, 2014 [facility] [address] [id number] [address] [place] [address], [place] [address] 20 Jul, 2014 [facility] [address] [id number] [address] [place] [address], [place] [address] 19 Jul, 2014 [facility] [address] [id number] [address] [place] [address], [place] [address] 19 Jul, 2014 [facility] [address] [id number] [address] [place] [address], [place] [address] 17 Jul, 2014 [facility] [address] [id number] [address] [place] [address], [place] [address] 17 Jul, 2014 [facility] [address] [id number] [address] [place] [address], [place] [address] 16 Jul, 2014 [facility] [address] [id number] [address] [place] [address], [place] [address] 16 Jul, 2014 [facility] [address] [id number] [address] [place] [address], [place] [address] 16 Jul, 2014 [facility] [address] [id number] [address] [place] [address] 16 Jul, 2014 [facility] [address] [id number] [address] [place] [address] 13 Jul, 2014 [facility] [address] [id number] [address] [place] [address], [place] [address] Jul, [facility] [address] [id number] [address] [place] [address], [place] [address] Jul, [facility] [address] [id number] [address] [place] [address], [place] [address] Jul, 2014 [facility] [address] [id number] [address] [place] [address], [place] [address] Jul, 2014 [facility] [address] [id number] [address] [place] [address], [place] [address] Jul, [facility] [address] [id number] [address] [place] [address], [place] [address] Jul, [facility] [address] [id number] [address] [place] [address], [place] [address] Jul, [facility] [address] [id number] [address] [place] [address], [place] [address] Jul, [facility] [address] [id number] [address] [place] [address], [place] [address] Jul, [facility] [address] [id number] [address] [place] [address], [place] [address] Jul, [facility] [address] [id number] [address] [place] [address], [place] [address] Jul, [facility] [address] [id number] [address] [place] [address], [place] [address] Jun, [facility] [address] [id number] [address] [place] [address], [place] [address] Jun, [facility] [address] [id number] [address] [place] [address], [place] [address] Jun, [facility] [address] [id number] [address] [place] [address], [place] [address] Jun, [facility] [address] [id number] [address] [place] [address], [place] [address] Jun, [facility] [address] [id number] [address] [place] [address], [place] [address] Jun, [facility] [address] [id number] [address] [place] [address], [place] [address] Jun, [facility] [address] [id number] [address] [place] [address], [place] [address] Jun, [facility] [address] [id number] [address] [place] [address], [place] [address] Jun, [facility] [address] [id number] [address] [place] [address], [place] [address] Jun, [facility] [address] [id number] [address] [place] [address], [place] [address] Jun, [facility] [address] [id number] [address] [place] [address], [place] [address] Jun, [facility] [address] [id number] [address] [place] [address], [place] [address] Jun, [facility] [address] [id number] [address] [place] [address], [place] [address] Jun, [facility] [address] [id number] [address] [place] [address], [place] [address] Jun, [facility] [address] [id number] [address] [place] [address], [place] [address] Jun, [facility] [address] [id number] [address] [place] [address], [place] [address] Jun, [facility] [address] [id number] [address] [place] [address], [place] [address] Jun, [facility] [address] [id number] [address] [place] [address], [place] [address] Jun, [facility] [address] [id number] [address] [place] [address], [place] [address] Jun, [facility] [address] [id number] [address] [place] [address], [place] [address] May, [facility] [address] [id number] [address] [place] [address], [place] [address] May, [facility] [address] [id number] [address] [place] [address], [place] [address] May, [facility] [address] [id number] [address] [place] [address], [place] [address] May, [facility] [address] [id number] [address] [place] [address], [place] [address] May, [facility] [address] [id number] [address] [place] [address], [place] [address] May, [facility] [address] [id number] [address] [place] [address], [place] [address] May, [facility] [address] [id number] [address] [place] [address], [place] [address] May, [facility] [address] [id number] [address] [place] [address], [place] [address] May, [facility] [address] [id number] [address] [place] [address], [place] [address] May, [facility] [address] [id number] [address] [place] [address], [place] [address] May, [facility] [address] [id number] [address] [place] [address], [place] [address] 18 May, 2014 [facility] [address] [id number] [address] [place] [address], [place] [address] 18 May, 2014 [facility] [address] [id number] [address] [place] [address], [place] [address] 17 May, 2014 [facility] [address] [id number] [address] [place] [address], [place] [address] 16 May, 2014 [facility] [address] [id number] [address] [place] [address], [place] [address] 16 May, 2014 [facility] [address] [id number] [address] [place] [address], [place] [address] 15 May, 2014 [facility] [address] [id number] [address] [place] [address], [place] [address] 15 May, 2014 [facility] [address] [id number] [address] [place] [address], [place] [address] May, [facility] [address] [id number] [address] [place] [address], [place] [address] May, [facility] [address] [id number] [address] [place] [address], [place] [address] May, [facility] [address] [id number] [address] [place] [address], [place] [address] May, [facility] [address] [id number] [address] [place] [address], [place] [address] May, [facility] [address] [id number] [address] [place] [address], [place] [address] May, [facility] [address] [id number] [address] [place] [address], [place] [address] May, [facility] [address] [id number] [address] [place] [address], [place] [address] May, [facility] [address] [id number] [address] [place] [address], [place] [address] May, [facility] [address] [id number] [address] [place] [address], [place] [address] May, [facility] [address] [id number] [address] [place] [address], [place] [address] May, [facility] [address] [id number] [address] [place] [address], [place] [address] May, [facility] [address] [id number] [address] [place] [address], [place] [address] May, [facility] [address] [id number] [address] [place] [address], [place] [address] May, [facility] [address] [id number] [address] [place] [address], [place] [address] May, [facility] [address] [id number] [address] [place] [address], [place] [address] May, [facility] [address] [id number] [address] [place] [address], [place] [address] Apr, [facility] [address] [id number] [address] [place] [address], [place] [address] Apr, [facility] [address] [id number] [address] [place] [address], [place] [address] Apr, [facility] [address] [id number] [address] [place] [address], [place] [address] Apr, [facility] [address] [id number] [address] [place] [address], [place] [address] Apr, [facility] [address] [id number] [address] [place] [address], [place] [address] Apr, [facility] [address] [id number] [address] [place] [address], [place] [address] Apr, [facility] [address] [id number] [address] [place] [address], [place] [address] Apr, [facility] [address] [id number] [address] [place] [address], [place] [address] Apr, [facility] [address] [id number] [address] [place] [address], [place] [address] Apr, [facility] [address] [id number] [address] [place] [address], [place] [address] Mar, [facility] [address] [id number] [address] [place] [address], [place] [address] Mar, [facility] [address] [id number] [address] [place], [place] [address] [address] Mar, [facility] [address] [id number] [address] [place] [address], [place] [address] 31 Mar, 2013 [facility] [address] [id number] [address] [place] [address], [place] [address] Mar, [facility] [address] [id number] [address] [place] [address], [place] [address] 30 Mar, 2014 [facility] [address] [id number] [address] [place] [address], [place] [address] Mar, [facility] [address] [id number] [address] [place] [address], [place] [address] Mar, [facility] [address] [id number] [address] [place] [address], [place] [address] Mar, [facility] [address] [id number] [address] [place] [address], [place] [address] Mar, [facility] [address] [id number] [address] [place] [id number] Mar, [facility] [address] [id number] [address] [place] [id number] Mar, [facility] [address] [id number] [address] [place] [id number] Mar, [facility] [address] [id number] [address] [place] [id number] Mar, 2013 [facility] [address] [id number] [address] [place] [id number] Mar, 2013 [facility] [address] [id number] [address] [place] [id number] Mar, [facility] [address] [id number] [address] [place] [id number] Mar, [facility] [address] [id number] [address] [place] [id number] Mar, 2013 [facility] [address] [id number] [address] [place] [address], [place] [address] 02 Mar, 2013 [facility] [address] [id number] [address] [place] [address], [place] [id number] 02 Mar, 2013 [facility] [address] [id number] [address] [place] [address], [place] [address] 05 Sep, 2013 [facility] [address] [id number] [address] [place] [address], [place] [address] 05 Sep, 2013 [facility] [address] [id number] [address] [place] [address], [place] [address] 04 Sep, 2013 [facility] [address] [id number] [address] [place] [address], [place] [address] 04 Sep, 2013 [facility] [address] [id number] [address] [place] [address], [place] [address] 03 Feb, 2013 [facility] [address] [id number] [address] [place] [address], [place] [address] 03 Feb, 2013 [facility] [address] [id number] [address] [place] [address], [place] [address] 02 Feb, 2013 [facility] [address] [id number] [address] [place] [address], [place] [id number] Feb, 2013 [facility] [address] [id number] [address] [place] [address], [place] [address] 02 Feb, 2013 [facility] [address] [id number] [address] [place] [address], [place] [address] Feb, 2013 [facility] [address] [id number] [address] [place] [address], [place] [address] Jan, [facility] [address] [id number] [address] [place] [address], [place] [id number] Jan, [facility] [address] [id number] [address] [place] [address], [place] [address] Jan, [facility] [address] [id number] [address] [place] [address], [place] [address] Jan, [facility] [address] [id number] [facility] [place] [address] Jan, [facility] [address] [id number] [address] [place] [address], [place] [id number] Jan, [facility] [address] [id number] [address] [place] [address], [place] [address] Jan, [facility] [address] [id number] [address] [place] [address], [place] [address] Jan, [facility] [address] [id number] [address] [place] [address], [place] [address] Jan, [facility] [address] [id number] [address] [place] [address], [place] [id number] Jan, [facility] [address] [id number] [address] [place] [address], [place] [id number] Jan, [facility] [address] [id number] [address] [place] [address], [place] [id number] Jan, [facility] [address] [id number] [address] [place] [address], [place] [address] Dec, [facility] [address] [id number] [address] [place] [address], [place] [address] Dec, [facility] [address] [id number] [address] [place] [address], [place] [address] Dec, [facility] [address] [id number] [address] [place] [address], [place] [address] Dec, [facility] [address] [id number] [address] [place] [address], [place] [address] Dec, [facility] [address] [id number] [address] [place] [address], [place] [address] Dec, [facility] [address] [id number] [address] [place] [address], [place] [id number] Dec, [facility] [address] [id number] [address] [place] [address], [place] [address] Dec, [facility] [address] [id number] [facility] [place] [place] [address] Dec, [facility] [address] [id number] [address] [place] [address], [place] [address] Dec, [facility] [address] [id number] [address] [place] [address], [place] [address] Dec, [facility] [address] [id number] [address] [place] [address], [place] [address] Dec, [facility] [address] [id number] [address] [place] [address], [place] [address] Nov, [facility] [address] [id number] [address] [place] [address], [place] [address] Nov, [facility] [address] [id number] [address] [place] [address], [place] [address] Nov, [facility] [address] [id number] [address] [place] [address], [place] [address] Nov, [facility] [address] [id number] [address] [place] [address], [place] [address] Nov, [facility] [address] [id number] [address] [place] [address], [place] [address] Nov, [facility] [address] [id number] [address] [place] [address], [place] [address] Nov, [facility] [address] [id number] [address] [place] [address], [place] [address] Nov, [facility] [address] [id number] [address] [place] [address], [place] [address] Nov, [facility] [address] [id number] [address] [place] [address], [place] [address] Nov, [facility] [address] [id number] [address] [place] [address], [place] [address] Nov, [facility] [address] [id number] [facility] [place] [address] Nov, [facility] [address] [id number] [address] [place] [address], [place] [address] Nov, [facility] [address] [id number] [address] [place] [address], [place] [address] Nov, [facility] [address] [id number] [address] [place] [address], [place] [address] October, [facility] [address] [id number] [address] [place] [address], [place] [address] October, [facility] [address] [id number] [address] [place] [address], [place] [address] October, [facility] [address] [id number] [address] [place] [address], [place] [address] October, [facility] [address] [id number] [address] [place] [address], [place] [address] October, [facility] [address] [id number] [address] [place] [address], [place] [address] October, [facility] [address] [id number] [address] [place] [address], [place] [address] October, [facility] [address] [id number] [address] [place] [address], [place] [address] October, [facility] [address] [id number] [address] [place] [address], [place] [address] October, [facility] [address] [id number] [address] [place] [address], [place] [address] October, [facility] [address] [id number] [address] [place] [address], [place] [address] October, [facility] [address] [id number] [address] [place] [address], [place] [address] October, [facility] [address] [id number] [address] [place] [address], [place] [address] Sep, [facility] [address] [id number] [facility] [place] [address] Sep, [facility] [address] [id number] [address] [place] [address], [place] [address] Sep, [facility] [address] [id number] [facility] [place] [address] Sep, [facility] [address] [id number] [address] [place] [address], [place] [address] Sep, [facility] [address] [id number] [address] [place] [address], [place] [address] Sep, [facility] [address] [id number] [address] [place] [address], [place] [address] Aug, [facility] [address] [id number] [address] [place] [address], [place] [address] Aug, [facility] [address] [id number] [address] [place] [address], [place] [address] Aug, [facility] [address] [id number] [address] [place] [address], [place] [address] Aug, [facility] [address] [id number] [address] [place] [address], [place] [address] Aug, [facility] [address] [id number] [address] [place] [address], [place] [address] Aug, [facility] [address] [id number] [address] [place] [address], [place] [address] Jul, [facility] [address] [id number] [address] [place] [address], [place] [address] Jul, [facility] [address] [id number] [address] [place] [address], [place] [address] Jul, [facility] [address] [id number] [address] [place] [address], [place] [address] Jul, [facility] [address] [id number] [address] [place] [address], [place] [address] 13 Jul, 2013 [facility] [address] [id number] [address] [place] [address], [place] [address] Jul, [facility] [address] [id number] [address] [place] [address], [place] [address] Jul, [facility] [address] [id number] [address] [place] [address], [place] [address] Jul, [facility] [address] [id number] [address] [place] [address], [place] [address] Jul, [facility] [address] [id number] [address] [place] [address], [place] [address] Jul, [facility] [address] [id number] [address] [place] [address], [place] [address] Jun, [facility] [address] [id number] [address] [place] [address], [place] [address] Jun, [facility] [address] [id number] [address] [place] [address], [place] [address] Jun, [facility] [address] [id number] [address] [place] [address], [place] [address] Jun, [facility] [address] [id number] [address] [place] [address], [place] [address] Jun, [facility] [address] [id number] [address] [place] [address], [place] [address] Jun, [facility] [address] [id number] [address] [place] [address], [place] [address] Jun, [facility] [address] [id number] [address] [place] [address], [place] [address] Jun, [facility] [address] [id number] [address] [place] [address], [place] [address] May, [facility] [address] [id number] [address] [place] [address], [place] [address] May, [facility] [address] [id number] [address] [place] [address], [place] [address] May, [facility] [address] [id number] [address] [place] [address], [place] [address] May, [facility] [address] [id number] [address] [place] [address], [place] [address] May, [facility] [address] [id number] [address] [place] [address], [place] [address] May, [facility] [address] [id number] [address] [place] [address], [place] [address] May, [facility] [address] [id number] [address] [place] [address], [place] [address] May, [facility] [address] [id number] [address] [place] [address], [place] [address] Apr, [facility] [address] [id number] [address] [place] [address] Apr, [facility] [address] [id number] [address] [place] [address], [place] [address] Apr, [facility] [address] [id number] [address] [place] [address] Apr, [facility] [address] [id number] [address] [place] [address] Apr, [facility] [address] [id number] [address] [place] [address] Apr, [facility] [address] [id number] [address] [place] [address], [place] [address] Mar, [facility] [address] [id number] [address] [place] [address] Mar, [facility] [address] [id number] [address] [place] [address], [place] [address] Mar, [facility] [address] [id number] [address] [place] [address], [place] [address] Mar, [facility] [address] [id number] [address] [place] [address], [place] [address] Mar, [facility] [address] [id number] [address] [place] [address], [place] [address] Mar, [facility] [address] [id number] [address] [place] [address], [place] [address] Mar, [facility] [address] [id number] [address] [place] [address], [place] [address] 30 Feb, 2012 [facility] [address] [id number] [address] [place] [address], [place] [address] 30 Feb, 2013 [facility] [address] [id number] [address] [place] [address], [place] [address] 27 Feb, 2013 [facility] [address] [id number] [address] [place] [address], [place] [address] Feb, 2012 [facility] [address] [id number] [address] [place] [address], [place] [address] Feb, [facility] [address] [id number] [address] [place] [address], [place] [address] Feb, [facility] [address] [id number] [address] [place] [address], [place] [address] Jan, [facility] [address] [id number] [address] [place] [address], [place] [address] Jan, [facility] [address] [id number] [address] [place] [address], [place] [address] Jan, [facility] [address] [id number] [address] [place] [address], [place] [address] Jan, [facility] [address] [id number] [address] [place] [address], [place] [address] Jan, [facility] [address] [id number] [address] [place] [address], [place] [address] Jan, [facility] [address] [id number] [address] [place] [address], [place] [address] Jan, [facility] [address] [id number] [address] [place] [address], [place] [address] Jan, [facility] [address] [id number] [address] [place] [address], [place] [address] Jan, [facility] [address] [id number] [address] [place] [address], [place] [address] Dec, [facility] [address] [id number] [address] [place] [address], [place] [address] Dec, [facility] [address] [id number] [address] [place] [address], [place] [address] Dec, [facility] [address] [id number] [address] [place] [address], [place] [address] Dec, [facility] [address] [id number] [address] [place] [address], [place] [address] Dec, [facility] [address] [id number] [address] [place] [address], [place] [address] Dec, [facility] [address] [id number] [address] [place] [address], [place] [address] Dec, [facility] [address] [id number] [address] [place] [address], [place] [address] Dec, [facility] [address] [id number] [address] [place] [address], [place] [address] Dec, [facility] [address] [id number] [address] [place] [address], [place] [address] Dec, [facility] [address] [id number] [address] [place] [address], [place] [address] Dec, [facility] [address] [id number] [address] [place] [address], [place] [address] Dec, [facility] [address] [id number] [address] [place] [address], [place] [address] Dec, [facility] [address] [id number] [address] [place] [address], [place] [address] Nov, [facility] [address] [id number] [address] [place] [address], [place] [address] Nov, [facility] [address] [id number] [address] [place] [address], [place] [address] Nov, [facility] [address] [id number] [address] [place] [address], [place] [address] Nov, [facility] [address] [id number] [address] [place] [address], [place] [address] October, [facility] [address] [id number] [address] [place] [address], [place] [address] October, [facility] [address] [id number] [address] [place] [address], [place] [address] October, [facility] [address] [id number] [address] [place] [address], [place] [address] October, [facility] [address] [id number] [address] [place] [address], [place] [address] October, [facility] [address] [id number] [address] [place] [address], [place] [address] October, [facility] [address] [id number] [address] [place] [address], [place] [address] Sep, [facility] [address] [id number] [address] [place] [address], [place] [address] Sep, [facility] [address] [id number] [address] [place] [address], [place] [address] Sep, [facility] [address] [id number] [address] [place] [address], [place] [address] Sep, [facility] [address] [id number] [address] [place] [address], [place] [address] Sep, [facility] [address] [id number] [facility] [place] [place] [address] 16 Sep, 2012 [facility] [address] [id number] [address] [place] [address], [place] [address] 12 Sep, 2012 [facility] [address] [id number] [address] [place] [address], [place] [address] Sep, [facility] [address] [id number] [address] [place] [address], [place] [address] Sep, [facility] [address] [id number] [address] [place] [address], [place] [address] Sep, [facility] [address] [id number] [address] [place] [address], [place] [address] Sep, [facility] [address] [id number] [address] [place] [address], [place] [address] Aug, [facility] [address] [id number] [address] [place] [address], [place] [address] 25 Aug, 2012 [facility] [address] [id number] [address] [place] [address], [place] [address] 25 Aug, 2012 [facility] [address] [id number] [address] [place] [address], [place] [address] 21 Aug, 2012 [facility] [address] [id number] [address] [place] [address], [place] [address] 19 Aug, 2012 [facility] [address] [id number] [address] [place] [address], [place] [address] 18 Aug, 2012 [facility] [address] [id number] [address] [place] [address], [place] [address] 17 Aug, 2012 [facility] [address] [id number] [address] [place] [address], [place] [address] 15 Aug, 2012 [facility] [address] [id number] [address] [place] [address], [place] [address] 15 Aug, 2012 [facility] [address] [id number] [address] [place] [address], [place] [address] Aug, [facility] [address] [id number] [address] [place] [address], [place] [address] Aug, [facility] [address] [id number] [address] [place] [address], [place] [address] Aug, [facility] [address] [id number] [address] [place] [address], [place] [address] Jul, [facility] [address] [id number] [address] [place] [address], [place] [address] Jul, [facility] [address] [id number] [address] [place] [address], [place] [address] Jul, [facility] [address] [id number] [address] [place] [address], [place] [address] Jul, [facility] [address] [id number] [address] [place] [address], [place] [address] Jul, [facility] [address] [id number] [address] [place] [address], [place] [address] Jul, [facility] [address] [id number] [address] [place] [address], [place] [address] Jul, [facility] [address] [id number] [address] [place] [address], [place] [address] Jul, [facility] [address] [id number] [address] [place] [address], [place] [address] Jul, [facility] [address] [id number] [address] [place] [address], [place] [address] Jul, [facility] [address] [id number] [address] [place] [address], [place] [address] May, [facility] [address] [id number] [place] [id number] May, [facility] [address] [id number] [address] [place] [address], [place] [address] May, [facility] [address] [id number] [address] [place] [address] May, [facility] [address] [facility] [id number] [address] [place] [address] May, [facility] [address] [facility] [id number] [address] [place] [address] Apr, [facility] [address] [id number] [place] [id number] Apr, [facility] [address] [facility] [id number] [address] [place] [address] Apr, [facility] [address] [facility] [id number] [address] [place] [address] Mar, [facility] [address] [id number] [place] [id number] Mar, [facility] [address] [facility] [id number] [address] [place] [phone] Mar, [facility] [address] [id number] [place] [id number] Feb, [facility] [address] [facility] [id number] [address] [place] [phone] Feb, [facility] [address] [facility] [id number] [address] [place] [phone] Feb, [facility] [place] [address] [id number] [place] [id number] Feb, [facility] [address] [id number] [place] [id number] Feb, [facility] [address] [id number] [place] [id number] Jan, [facility] [address] [id number] [address] [place] [address], [place] [id number] Jan, [facility] [place] [address] [id number] [place] [id number] Jan, [facility] [address] [id number] [place] [id number] Jan, [facility] [place] [address] [id number] [place] [id number] Jan, [facility] [address] [facility] [id number] [address] [place] [address], [place] [phone] Jan, [facility] [address] [facility] [id number] [address] [place] [address], [place] [phone] Jan, [facility] [address] [facility] [id number] [address] [place] [address], [place] [id number] Aug, [facility] [address] [id number] [place] [id number] Aug, [facility] [address] [facility] [id number] [address] [place] [address], [place] [id number] Jul, [facility] [address] [facility] [id number] [address] [place] [address], [place] [id number] Jul, [facility] [address] [facility] [id number] [address] [place] [address], [place] [id number] Jul, [facility] [address] [id number] [place] [id number] Jul, [facility] [address] [facility] [id number] [address] [place] [address], [place] [id number] Jul, [facility] [address] [id number] [place] [id number] Jul, [facility] [address] [facility] [id number] [address] [place] [address], [place] [id number] Jul, [facility] [address] [id number] [place] [id number] Jul, [facility] [address] [id number] [place] [id number] Jul, [facility] [address] [id number] [place] [id number] Jul, [facility] [address] [facility] [id number] [address] [place] [address], [place] [id number] May, [facility] [address] [id number] [address] [place] [id number] May, [facility] [address] [id number] [address] [place] [id number] May, [facility] [address] [id number] [address] [place] [phone] Apr, [facility] [address] [id number] [address] [place] [id number] Jan, [facility] [address] [id number] [address] [place] [phone] Jan, [facility] [address] [id number] [address] [place] [id number] Dec, [facility] [address] [id number] [address] [place] [id number] Dec, [facility] [address] [id number] [address] [place] [id number] May, [facility] [address] [id number] [address] [place] [id number] Mar, [facility] [address] [id number] [address] [place] [phone] Mar, [facility] [address] [id number] [address] [place] [phone] Jan, IMMUNIZATIONS No Known Immunizations SOCIAL HISTORY [...]
--- OUTSIDE RECORDS SUMMARY | 2020-01-28 12:50 | XMS REPORT ---
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 Active 230735125 Problem History of venous thromboembolism V12.51 Active 387600665 Problem Cellulitis of unspecified part of limb L03.119 Active 596232910 Problem Gastroesophageal reflux disease without esophagitis K21.9 Active 327100206 Problem History of pulmonary embolism Z86.711 Active 718883531 Problem Pseudotumor cerebri G93.2 Active 11014617 Problem History of DVT (deep vein thrombosis) Z86.718 Active 622402502 ALLERGIES No Information ENCOUNTERS Encounter Location Date Diagnosis [place] [id number] [facility] [id number] [address] [place] [phone] Apr, long-term (current) use of 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 Z79.01 [facility] [address] [facility] [id number] [address] [place] [phone] Apr, long-term 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.01 [facility] [address] [facility] [id number] [address] [place] [phone] Apr, Cellulitis of unspecified pa rt of limb L03.119 ; Allergic contact dermatitis due to adhesives L23.1 and Chronic pain syndrome G89.4 [facility] [address] [facility] [id number] [address] [place] [address] Apr, [place] [address] [place] [id number] [address] [place] [phone] Apr, 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.01 ; Cellulitis of unspecified part of limb L03.119 ; Chronic pain syndrome G89.4 and Anxiety F41.9 [facility] [address] [place] [id number] [address] [place] [phone] 16 Apr, 2015 [facility] [address] [place] [id number] [place] [address] Apr, [place] [address] [place] [id number] [place] [phone] Mar, [place] [address] [address] Mar, [place] [address] [address] Mar, Sore throat J02.9 ; Gastroes ophageal reflux disease without esophagitis K21.9 ; Pseudotumor cerebri G93.2 ; Chronic pain syndrome G89.4 ; Choriocarcinoma C58 ; History of pulmonary embolism Z86.711 ; History of DVT (deep vein thrombosis) Z86.718 ; Anxiety F41.9 and Tachycardia R00.0 [place] [address] [address] Feb, Anxiety 300.00 and Chronic p ain 338.29 [place] [address] [place] [id number] [address] [place] [phone] Feb, [place] [address] [place] [id number] [address] [place] [phone] Feb, [place] [address] [address] Jan, 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 of 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 icoagulant therapy V58.61 and Dysuria 788.1 [place] [address] [place] [id number] [place] [address] Jan, Dysuria 788.1 [facility] [address] [place] [id number] [address] [place] [address] Jan, Anxiety 300.00 and Chronic p ain 338.29 [facility] [address] [place] [id number] [place] [phone] Jan, [facility] [address] [address] Jan, [facility] [address] [phone] Jan, [place] [address] [address] Dec, Weakness 780.79 [place] [address] [address] Dec, long-term current use of ant icoagulant therapy V58.61 [place] [address] [address] Dec, Palpitations 785.1 ; Tremor 781.0 ; Weakness 780.79 ; long-term current use of anticoagulant therapy V58.61 and Yeast vaginitis 112.1 [place] [address] [place] [id number] [address] [place] [address] Dec, [place] [address] [address] Dec, Cervicalgia 723.1 ; Tachycar yoseph 785.0 ; Pseudotumor cerebri 348.2 and History of venous thromboembolism V12.51 [place] [address] [address] Nov, [place] [address] [address] Nov, [place] [address] [address] Nov, Tachycardia 785.0 ; Pseudotu mor cerebri 348.2 ; Anxiety 300.00 and History of venous thromboembolism V12.51 [facility] [address] [id number] [address] [place] [address] Nov, [facility] [address] [id number] [address] [place] [phone] 18 Nov, 2014 [facility] [address] [id number] [address] [place] [phone] Nov, [facility] [address] [id number] [address] [place] [phone] Nov, [facility] [address] [facility] [id number] [address] [place] [phone] Nov, [facility] [address] [facility] [id number] [address] [place] [phone] Nov, [facility] [address] [facility] [id number] [address] [place] [address] Nov, [facility] [address] [facility] [id number] [address] [place] [phone] October, [facility] [address] [facility] [id number] [address] [place] [address] October, [facility] [address] [place] [id number] [address] [place] [address] October, Pain in thoracic spine 724.1 and Tachycardia 785.0 [facility] [address] [id number] [address] [place] [address] October, [facility] [address] [id number] [address] [place] [phone] October, [facility] [address] [facility] [id number] [address] [place] [phone] 14 Sep, 2014 [facility] [address] [facility] [id number] [address] [place] [phone] Sep, [facility] [address] [id number] [facility] [place] [address] Aug, [facility] [address] [id number] [address] [place] [address], [place] [address] Aug, [facility] [address] [id number] [address] [place] [address], [place] [address] Aug, [facility] [address] [id number] [address] [place] [address], [place] [address] Aug, [facility] [address] [id number] [address] [place] [address], [place] [address] Aug, [facility] [address] [id number] [address] [place] [address], [place] [address] Aug, [facility] [address] [id number] [address] [place] [address], [place] [address] Aug, [facility] [address] [id number] [address] [place] [address], [place] [address] Aug, [facility] [address] [id number] [address] [place] [address], [place] [address] Aug, [facility] [address] [id number] [address] [place] [address], [place] [address] Aug, [facility] [address] [id number] [address] [place] [address], [place] [address] Aug, [facility] [address] [id number] [address] [place] [address], [place] [address] Aug, 2014 [facility] [address] [id number] [address] [place] [address], [place] [address] Jul, [facility] [address] [id number] [address] [place] [address], [place] [address] Jul, [facility] [address] [id number] [address] [place] [address], [place] [address] Jul, [facility] [address] [id number] [address] [place] [address], [place] [address] Jul, [facility] [address] [id number] [address] [place] [address], [place] [address] 23 Jul, 2014 [facility] [address] [id number] [address] [place] [address], [place] [address] 23 Jul, 2014 [facility] [address] [id number] [address] [place] [address], [place] [address] 23 Jul, 2014 [facility] [address] [id number] [address] [place] [address], [place] [address] 23 Jul, 2014 [facility] [address] [id number] [address] [place] [address], [place] [address] 20 Jul, 2014 [facility] [address] [id number] [address] [place] [address], [place] [address] 20 Jul, 2014 [facility] [address] [id number] [address] [place] [address], [place] [address] 19 Jul, 2014 [facility] [address] [id number] [address] [place] [address], [place] [address] 19 Jul, 2014 [facility] [address] [id number] [address] [place] [address], [place] [address] 17 Jul, 2014 [facility] [address] [id number] [address] [place] [address], [place] [address] 17 Jul, 2014 [facility] [address] [id number] [address] [place] [address], [place] [address] 16 Jul, 2014 [facility] [address] [id number] [address] [place] [address], [place] [address] 16 Jul, 2014 [facility] [address] [id number] [address] [place] [address], [place] [address] 16 Jul, 2014 [facility] [address] [id number] [address] [place] [phone] 16 Jul, 2014 [facility] [address] [id number] [address] [place] [phone] 13 Jul, 2014 [facility] [address] [id number] [address] [place] [address], [place] [address] Jul, [facility] [address] [id number] [address] [place] [address], [place] [address] Jul, [facility] [address] [id number] [address] [place] [address], [place] [address] Jul, 2014 [facility] [address] [id number] [address] [place] [address], [place] [address] Jul, 2014 [facility] [address] [id number] [address] [place] [address], [place] [address] Jul, [facility] [address] [id number] [address] [place] [address], [place] [address] Jul, [facility] [address] [id number] [address] [place] [address], [place] [address] Jul, [facility] [address] [id number] [address] [place] [address], [place] [address] Jul, [facility] [address] [id number] [address] [place] [address], [place] [address] Jul, [facility] [address] [id number] [address] [place] [address], [place] [address] Jul, [facility] [address] [id number] [address] [place] [address], [place] [address] Jul, [facility] [address] [id number] [address] [place] [address], [place] [address] Jun, [facility] [address] [id number] [address] [place] [address], [place] [address] Jun, [facility] [address] [id number] [address] [place] [address], [place] [address] Jun, [facility] [address] [id number] [address] [place] [address], [place] [address] Jun, [facility] [address] [id number] [address] [place] [address], [place] [address] Jun, [facility] [address] [id number] [address] [place] [address], [place] [address] Jun, [facility] [address] [id number] [address] [place] [address], [place] [address] Jun, [facility] [address] [id number] [address] [place] [address], [place] [address] Jun, [facility] [address] [id number] [address] [place] [address], [place] [address] Jun, [facility] [address] [id number] [address] [place] [address], [place] [address] Jun, [facility] [address] [id number] [address] [place] [address], [place] [address] Jun, [facility] [address] [id number] [address] [place] [address], [place] [address] Jun, [facility] [address] [id number] [address] [place] [address], [place] [address] Jun, [facility] [address] [id number] [address] [place] [address], [place] [address] Jun, [facility] [address] [id number] [address] [place] [address], [place] [address] Jun, [facility] [address] [id number] [address] [place] [address], [place] [address] Jun, [facility] [address] [id number] [address] [place] [address], [place] [address] Jun, [facility] [address] [id number] [address] [place] [address], [place] [address] Jun, [facility] [address] [id number] [address] [place] [address], [place] [address] Jun, [facility] [address] [id number] [address] [place] [address], [place] [address] Jun, [facility] [address] [id number] [address] [place] [address], [place] [address] May, [facility] [address] [id number] [address] [place] [address], [place] [address] May, [facility] [address] [id number] [address] [place] [address], [place] [address] May, [facility] [address] [id number] [address] [place] [address], [place] [address] May, [facility] [address] [id number] [address] [place] [address], [place] [address] May, [facility] [address] [id number] [address] [place] [address], [place] [address] May, [facility] [address] [id number] [address] [place] [address], [place] [address] May, [facility] [address] [id number] [address] [place] [address], [place] [address] May, [facility] [address] [id number] [address] [place] [address], [place] [address] May, [facility] [address] [id number] [address] [place] [address], [place] [address] May, [facility] [address] [id number] [address] [place] [address], [place] [address] May, [facility] [address] [id number] [address] [place] [address], [place] [address] 18 May, 2014 [facility] [address] [id number] [address] [place] [address], [place] [address] 18 May, 2014 [facility] [address] [id number] [address] [place] [address], [place] [address] 17 May, 2014 [facility] [address] [id number] [address] [place] [address], [place] [address] 16 May, 2014 [facility] [address] [id number] [address] [place] [address], [place] [address] 16 May, 2014 [facility] [address] [id number] [address] [place] [address], [place] [address] 15 May, 2014 [facility] [address] [id number] [address] [place] [address], [place] [address] 15 May, 2014 [facility] [address] [id number] [address] [place] [address], [place] [address] May, [facility] [address] [id number] [address] [place] [address], [place] [address] May, [facility] [address] [id number] [address] [place] [address], [place] [address] May, [facility] [address] [id number] [address] [place] [address], [place] [address] May, [facility] [address] [id number] [address] [place] [address], [place] [address] May, [facility] [address] [id number] [address] [place] [address], [place] [address] May, [facility] [address] [id number] [address] [place] [address], [place] [address] May, [facility] [address] [id number] [address] [place] [address], [place] [address] May, [facility] [address] [id number] [address] [place] [address], [place] [address] May, [facility] [address] [id number] [address] [place] [address], [place] [address] May, [facility] [address] [id number] [address] [place] [address], [place] [address] May, [facility] [address] [id number] [address] [place] [address], [place] [address] May, [facility] [address] [id number] [address] [place] [address], [place] [address] May, [facility] [address] [id number] [address] [place] [address], [place] [address] May, [facility] [address] [id number] [address] [place] [address], [place] [address] May, [facility] [address] [id number] [address] [place] [address], [place] [address] May, [facility] [address] [id number] [address] [place] [address], [place] [address] Apr, [facility] [address] [id number] [address] [place] [address], [place] [address] Apr, [facility] [address] [id number] [address] [place] [address], [place] [address] Apr, [facility] [address] [id number] [address] [place] [address], [place] [address] Apr, [facility] [address] [id number] [address] [place] [address], [place] [address] Apr, [facility] [address] [id number] [address] [place] [address], [place] [address] Apr, [facility] [address] [id number] [address] [place] [address], [place] [address] Apr, [facility] [address] [id number] [address] [place] [address], [place] [address] Apr, [facility] [address] [id number] [address] [place] [address], [place] [address] Apr, [facility] [address] [id number] [address] [place] [address], [place] [address] Apr, [facility] [address] [id number] [address] [place] [address], [place] [address] Mar, [facility] [address] [id number] [address] [place] [address], [place] [address] Mar, [facility] [address] [id number] [address] [place] [address] [address] Mar, [facility] [address] [id number] [address] [place] [address], [place] [address] 31 Mar, 2013 [facility] [address] [id number] [address] [place] [address], [place] [address] Mar, [facility] [address] [id number] [address] [place] [address], [place] [address] 30 Mar, 2014 [facility] [address] [id number] [address] [place] [address], [place] [address] Mar, [facility] [address] [id number] [address] [place] [address], [place] [address] Mar, [facility] [address] [id number] [address] [place] [address], [place] [address] Mar, [facility] [address] [id number] [address] [place] [address], [place] [address] Mar, [facility] [address] [id number] [address] [place] [id number] Mar, [facility] [address] [id number] [address] [place] [address] Mar, [facility] [address] [id number] [address] [place] [address] Mar, [facility] [address] [id number] [address] [place] [phone] Mar, 2013 [facility] [address] [id number] [address] [place] [id number] Mar, 2013 [facility] [address] [id number] [address] [place] [phone] Mar, [facility] [address] [id number] [address] [place] [address] Mar, [facility] [address] [id number] [address] [place] [phone] Mar, 2013 [facility] [address] [id number] [address] [place] [address], [place] [address] 02 Mar, 2013 [facility] [address] [id number] [address] [place] [address], [place] [address] 02 Mar, 2013 [facility] [address] [id number] [address] [place] [address], [place] [address] 05 Sep, 2013 [facility] [address] [id number] [address] [place] [address], [place] [address] 05 Sep, 2013 [facility] [address] [id number] [address] [place] [address], [place] [address] 04 Sep, 2013 [facility] [address] [id number] [address] [place] [address], [place] [address] 04 Sep, 2013 [facility] [address] [id number] [address] [place] [address], [place] [address] 03 Feb, 2013 [facility] [address] [id number] [address] [place] [address], [place] [address] 03 Feb, 2013 [facility] [address] [id number] [address] [place] [address], [place] [address] 02 Feb, 2013 [facility] [address] [id number] [address] [place] [address], [place] [address] Feb, 2013 [facility] [address] [id number] [address] [place] [address], [place] [address] 02 Feb, 2013 [facility] [address] [id number] [address] [place] [address], [place] [address] Feb, 2013 [facility] [address] [id number] [address] [place] [address], [place] [address] Jan, [facility] [address] [id number] [address] [place] [address], [place] [address] Jan, [facility] [address] [address] [id number] [address] [place] [address], [place] [address] Jan, [facility] [address] [id number] [address] [place] [address], [place] [address] Jan, [facility] [address] [id number] [facility] [place] [address] Jan, [facility] [address] [id number] [address] [place] [address], [place] [address] Jan, [facility] [address] [id number] [address] [place] [address], [place] [address] Jan, [facility] [address] [id number] [address] [place] [address], [place] [address] Jan, [facility] [address] [id number] [address] [place] [address], [place] [address] Jan, [facility] [address] [id number] [address] [place] [address], [place] [address] Jan, [facility] [address] [id number] [address] [place] [address], [place] [address] Jan, [facility] [address] [id number] [address] [place] [address], [place] [address] Jan, [facility] [address] [id number] [address] [place] [address], [place] [address] Dec, [facility] [address] [id number] [address] [place] [address], [place] [address] Dec, [facility] [address] [id number] [address] [place] [address], [place] [address] Dec, [facility] [address] [id number] [address] [place] [address], [place] [address] Dec, [facility] [address] [id number] [address] [place] [address], [place] [address] Dec, [facility] [address] [id number] [address] [place] [address], [place] [address] Dec, [facility] [address] [id number] [address] [place] [address], [place] [address] Dec, [facility] [address] [id number] [address] [place] [address], [place] [address] Dec, [facility] [address] [id number] [facility] [place] [address] Dec, [facility] [address] [id number] [address] [place] [address], [place] [address] Dec, [facility] [address] [id number] [address] [place] [address], [place] [address] Dec, [facility] [address] [id number] [address] [place] [address], [place] [address] Dec, [facility] [address] [id number] [address] [place] [address], [place] [address] Nov, [facility] [address] [id number] [address] [place] [address], [place] [address] Nov, [facility] [address] [id number] [address] [place] [address], [place] [address] Nov, [facility] [address] [id number] [address] [place] [address], [place] [address] Nov, [facility] [address] [id number] [address] [place] [address], [place] [address] Nov, [facility] [address] [id number] [address] [place] [address], [place] [address] Nov, [facility] [address] [id number] [address] [place] [address], [place] [address] Nov, [facility] [address] [id number] [address] [place] [address], [place] [address] Nov, [facility] [address] [id number] [address] [place] [address], [place] [address] Nov, [facility] [address] [id number] [address] [place] [address], [place] [address] Nov, [facility] [address] [id number] [address] [place] [address], [place] [address] Nov, [facility] [address] [id number] [facility] [place] [address] Nov, [facility] [address] [id number] [address] [place] [address], [place] [address] Nov, [facility] [address] [id number] [address] [place] [address], [place] [address] Nov, [facility] [address] [id number] [address] [place] [address], [place] [address] October, [facility] [address] [id number] [address] [place] [address], [place] [address] October, [facility] [address] [id number] [address] [place] [address], [place] [address] October, [facility] [address] [id number] [address] [place] [address], [place] [address] October, [facility] [address] [id number] [address] [place] [address], [place] [address] October, [facility] [address] [id number] [address] [place] [address], [place] [address] October, [facility] [address] [id number] [address] [place] [address], [place] [address] October, [facility] [address] [id number] [address] [place] [address], [place] [address] October, [facility] [address] [id number] [address] [place] [address], [place] [address] October, [facility] [address] [id number] [address] [place] [address], [place] [address] October, [facility] [address] [id number] [address] [place] [address], [place] [address] October, [facility] [address] [id number] [address] [place] [address], [place] [address] October, [facility] [address] [id number] [address] [place] [address], [place] [address] Sep, [facility] [address] [id number] [facility] [place] [address] Sep, [facility] [address] [id number] [address] [place] [address], [place] [address] Sep, [facility] [address] [id number] [facility] [place] [address] Sep, [facility] [address] [id number] [address] [place] [address], [place] [address] Sep, [facility] [address] [id number] [address] [place] [address], [place] [address] Sep, [facility] [address] [id number] [address] [place] [address], [place] [address] Aug, [facility] [address] [id number] [address] [place] [address], [place] [address] Aug, [facility] [address] [id number] [address] [place] [address], [place] [address] Aug, [facility] [address] [id number] [address] [place] [address], [place] [address] Aug, [facility] [address] [id number] [address] [place] [address], [place] [address] Aug, [facility] [address] [id number] [address] [place] [address], [place] [address] Aug, [facility] [address] [id number] [address] [place] [address], [place] [address] Jul, [facility] [address] [id number] [address] [place] [address], [place] [address] Jul, [facility] [address] [id number] [address] [place] [address], [place] [address] Jul, [facility] [address] [id number] [address] [place] [address], [place] [address] Jul, [facility] [address] [id number] [address] [place] [address], [place] [address] 13 Jul, 2013 [facility] [address] [id number] [address] [place] [address], [place] [address] Jul, [facility] [address] [id number] [address] [place] [address], [place] [address] Jul, [facility] [address] [id number] [address] [place] [address], [place] [address] Jul, [facility] [address] [id number] [address] [place] [address], [place] [address] Jul, [facility] [address] [id number] [address] [place] [address], [place] [address] Jul, [facility] [address] [id number] [address] [place] [address], [place] [address] Jun, [facility] [address] [id number] [address] [place] [address], [place] [address] Jun, [facility] [address] [id number] [address] [place] [address], [place] [address] Jun, [facility] [address] [id number] [address] [place] [address], [place] [address] Jun, [facility] [address] [id number] [address] [place] [address], [place] [address] Jun, [facility] [address] [id number] [address] [place] [address], [place] [address] Jun, [facility] [address] [id number] [address] [place] [address], [place] [address] Jun, [facility] [address] [id number] [address] [place] [address], [place] [address] Jun, [facility] [address] [id number] [address] [place] [address], [place] [address] May, [facility] [address] [id number] [address] [place] [address], [place] [address] May, [facility] [address] [id number] [address] [place] [address], [place] [address] May, [facility] [address] [id number] [address] [place] [address], [place] [address] May, [facility] [address] [id number] [address] [place] [address], [place] [address] May, [facility] [address] [id number] [address] [place] [address], [place] [address] May, [facility] [address] [id number] [address] [place] [address], [place] [address] May, [facility] [address] [id number] [address] [place] [address], [place] [address] May, [facility] [address] [id number] [address] [place] [address], [place] [address] Apr, [facility] [address] [id number] [address] [place] [address] Apr, [facility] [address] [id number] [address] [place] [address], [place] [address] Apr, [facility] [address] [id number] [address] [place] [address] Apr, [facility] [address] [id number] [address] [place] [address] Apr, [facility] [address] [id number] [address] [place] [address] Apr, [facility] [address] [id number] [address] [place] [address], [place] [address] Mar, [facility] [address] [id number] [address] [place] [address] Mar, [facility] [address] [id number] [address] [place] [address], [place] [address] Mar, [facility] [address] [id number] [address] [place] [address], [place] [address] Mar, [facility] [address] [id number] [address] [place] [address], [place] [address] Mar, [facility] [address] [id number] [address] [place] [address], [place] [address] Mar, [facility] [address] [id number] [address] [place] [address], [place] [address] Mar, [facility] [address] [id number] [address] [place] [address], [place] [address] 30 Feb, 2012 [facility] [address] [id number] [address] [place] [address], [place] [address] 30 Feb, 2013 [facility] [address] [id number] [address] [place] [address], [place] [address] 27 Feb, 2013 [facility] [address] [id number] [address] [place] [address], [place] [address] Feb, 2012 [facility] [address] [id number] [address] [place] [address], [place] [address] Feb, [facility] [address] [id number] [address] [place] [address], [place] [address] Feb, [facility] [address] [id number] [address] [place] [address], [place] [address] Jan, [facility] [address] [id number] [address] [place] [address], [place] [address] Jan, [facility] [address] [id number] [address] [place] [address], [place] [address] Jan, [facility] [address] [id number] [address] [place] [address], [place] [address] Jan, [facility] [address] [id number] [address] [place] [address], [place] [address] Jan, [facility] [address] [id number] [address] [place] [address], [place] [address] Jan, [facility] [address] [id number] [address] [place] [address], [place] [address] Jan, [facility] [address] [id number] [address] [place] [address], [place] [address] Jan, [facility] [address] [id number] [address] [place] [address], [place] [address] Jan, [facility] [address] [id number] [address] [place] [address], [place] [address] Dec, [facility] [address] [id number] [address] [place] [address], [place] [address] Dec, [facility] [address] [id number] [address] [place] [address], [place] [address] Dec, [facility] [address] [id number] [address] [place] [address], [place] [address] Dec, [facility] [address] [id number] [address] [place] [address], [place] [address] Dec, [facility] [address] [id number] [address] [place] [address], [place] [address] Dec, [facility] [address] [id number] [address] [place] [address], [place] [address] Dec, [facility] [address] [id number] [address] [place] [address], [place] [address] Dec, [facility] [address] [id number] [address] [place] [address], [place] [address] Dec, [facility] [address] [id number] [address] [place] [address], [place] [address] Dec, [facility] [address] [id number] [address] [place] [address], [place] [address] Dec, [facility] [address] [id number] [address] [place] [address], [place] [address] Dec, [facility] [address] [id number] [address] [place] [address], [place] [address] Dec, [facility] [address] [id number] [address] [place] [address], [place] [address] Nov, [facility] [address] [id number] [address] [place] [address], [place] [address] Nov, [facility] [address] [id number] [address] [place] [address], [place] [address] Nov, [facility] [address] [id number] [address] [place] [address], [place] [address] Nov, [facility] [address] [id number] [address] [place] [address], [place] [address] October, [facility] [address] [id number] [address] [place] [address], [place] [address] October, [facility] [address] [id number] [address] [place] [address], [place] [address] October, [facility] [address] [id number] [address] [place] [address], [place] [address] October, [facility] [address] [id number] [address] [place] [address], [place] [address] October, [facility] [address] [id number] [address] [place] [address], [place] [address] October, [facility] [address] [id number] [address] [place] [address], [place] [address] Sep, [facility] [address] [id number] [address] [place] [address], [place] [address] Sep, [facility] [address] [id number] [address] [place] [address], [place] [address] Sep, [facility] [address] [id number] [address] [place] [address], [place] [address] Sep, [facility] [address] [id number] [address] [place] [address], [place] [address] Sep, [facility] [address] [id number] [facility] [place] [address] 16 Sep, 2012 [facility] [address] [id number] [address] [place] [address], [place] [address] 12 Sep, 2012 [facility] [address] [id number] [address] [place] [address], [place] [address] Sep, [facility] [address] [id number] [address] [place] [address], [place] [address] Sep, [facility] [address] [id number] [address] [place] [address], [place] [address] Sep, [facility] [address] [id number] [address] [place] [address], [place] [address] Sep, [facility] [address] [id number] [address] [place] [address], [place] [address] Aug, [facility] [address] [id number] [address] [place] [address], [place] [address] 25 Aug, 2012 [facility] [address] [id number] [address] [place] [address], [place] [address] 25 Aug, 2012 [facility] [address] [id number] [address] [place] [address], [place] [address] 21 Aug, 2012 [facility] [address] [id number] [address] [place] [address], [place] [address] 19 Aug, 2012 [facility] [address] [id number] [address] [place] [address], [place] [address] 18 Aug, 2012 [facility] [address] [id number] [address] [place] [address], [place] [address] 17 Aug, 2012 [facility] [address] [id number] [address] [place] [address], [place] [address] 15 Aug, 2012 [facility] [address] [id number] [address] [place] [address], [place] [address] 15 Aug, 2012 [facility] [address] [id number] [address] [place] [address], [place] [address] Aug, [facility] [address] [id number] [address] [place] [address], [place] [address] Aug, [facility] [address] [id number] [address] [place] [address], [place] [address] Aug, [facility] [address] [id number] [address] [place] [address], [place] [address] Jul, [facility] [address] [id number] [address] [place] [address], [place] [address] Jul, [facility] [address] [id number] [address] [place] [address], [place] [address] Jul, [facility] [address] [id number] [address] [place] [address], [place] [address] Jul, [facility] [address] [id number] [address] [place] [address], [place] [address] Jul, [facility] [address] [id number] [address] [place] [address], [place] [address] Jul, [facility] [address] [id number] [address] [place] [address], [place] [address] Jul, [facility] [address] [id number] [address] [place] [address], [place] [address] Jul, [facility] [address] [id number] [address] [place] [address], [place] [address] Jul, [facility] [address] [id number] [address] [place] [address], [place] [address] Jul, [facility] [address] [id number] [address] [place] [address], [place] [address] May, [facility] [address] [id number] [id number] May, [facility] [address] [id number] [address] [place] [address], [place] [address] May, [facility] [address] [id number] [address] [place] [address] May, [facility] [address] [facility] [id number] [address] [place] [address] May, [facility] [address] [facility] [id number] [address] [place] [address] Apr, [facility] [place] [address] [id number] [place] [id number] Apr, [facility] [address] [facility] [id number] [address] [place] [address] Apr, [facility] [address] [facility] [id number] [address] [place] [address] Mar, [facility] [place] [address] [id number] [place] [id number] Mar, [facility] [address] [facility] [id number] [address] [place] [address] Mar, [facility] [place] [address] [id number] [place] [id number] Feb, [facility] [address] [facility] [id number] [address] [place] [address] Feb, [facility] [address] [facility] [id number] [address] [place] [address] Feb, [facility] [place] [address] [id number] [place] [id number] Feb, [facility] [place] [address] [id number] [place] [id number] Feb, [facility] [address] [id number] [place] [id number] Jan, [facility] [address] [id number] [address] [place] [address], [place] [address] Jan, [facility] [place] [address] [id number] [place] [id number] Jan, [facility] [address] [id number] [place] [id number] Jan, [facility] [place] [address] [id number] [place] [id number] Jan, [facility] [address] [facility] [id number] [address] [place] [place] [address], [place] [address] Jan, [facility] [address] [facility] [id number] [address] [place] [address], [place] [address] Jan, [facility] [address] [facility] [id number] [address] [place] [address], [place] [address] Aug, [facility] [place] [address] [id number] [place] [id number] Aug, [facility] [address] [facility] [id number] [address] [place] [address], [place] [address] Jul, [facility] [address] [facility] [id number] [address] [place] [address], [place] [phone] Jul, [facility] [address] [facility] [id number] [address] [place] [address], [place] [address] Jul, [facility] [place] [address] [id number] [place] [id number] Jul, [facility] [address] [facility] [id number] [address] [place] [address], [place] [address] Jul, [facility] [place] [address] [id number] [place] [id number] Jul, [facility] [address] [facility] [id number] [address] [place] [address], [place] [address] Jul, [facility] [place] [address] [id number] [place] [id number] Jul, [facility] [place] [address] [id number] [place] [id number] Jul, [facility] [place] [address] [id number] [place] [id number] Jul, [facility] [address] [facility] [id number] [address] [place] [address], [place] [address] May, [facility] [address] [id number] [address] [place] [phone] May, [facility] [address] [id number] [address] [place] [phone] May, [facility] [address] [id number] [address] [place] [phone] Apr, [facility] [address] [id number] [address] [place] [phone] Jan, [facility] [address] [id number] [address] [place] [phone] Jan, [facility] [address] [id number] [address] [place] [phone] Dec, [facility] [address] [id number] [address] [place] [id number] Dec, [facility] [address] [id number] [address] [place] [id number] May, [facility] [address] [id number] [address] [place] [id number] Mar, [facility] [address] [id number] [address] [place] [id number] Mar, [facility] [address] [id number] [address] [place] [phone] Jan, IMMUNIZATIONS No Known Immunizations SOCIAL HISTORY [...]
--- OUTSIDE RECORDS SUMMARY | 2020-01-28 12:50 | XMS REPORT ---
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 Active 158022025 Problem History of venous thromboembolism V12.51 Active 145361962 Problem Cellulitis of unspecified part of limb L03.119 Active 939450362 Problem Gastroesophageal reflux disease without esophagitis K21.9 Active 899999601 Problem History of pulmonary embolism Z86.711 Active 852625252 Problem Pseudotumor cerebri G93.2 Active 71128598 Problem History of DVT (deep vein thrombosis) Z86.718 Active 176333298 ALLERGIES No Information ENCOUNTERS Encounter Location Date Diagnosis [place] [id number] [facility] [id number] [address] [place] [address] Apr, jail (current) use of 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 Z79.01 [facility] [address] [facility] [id number] [address] [place] [address] Apr, jail 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.01 [facility] [address] [facility] [id number] [address] [place] [address] Apr, Cellulitis of unspecified pa rt of limb L03.119 ; Allergic contact dermatitis due to adhesives L23.1 and Chronic pain syndrome G89.4 [facility] [address] [facility] [id number] [address] [place] [address] Apr, [place] [address] [place] [id number] [address] [place] [address] Apr, [employer] customer service 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.01 ; Cellulitis of unspecified part of limb L03.119 ; Chronic pain syndrome G89.4 and Anxiety F41.9 [facility] [address] [place] [id number] [address] [place] [address] 16 Apr, 2015 [facility] [address] [place] [id number] [place] [address] Apr, [place] [address] [place] [id number] [place] [address] Mar, [place] [address] [address] Mar, [place] [address] [address] Mar, Sore throat J02.9 ; Gastroes ophageal reflux disease without esophagitis K21.9 ; Pseudotumor cerebri G93.2 ; Chronic pain syndrome G89.4 ; Choriocarcinoma C58 ; History of pulmonary embolism Z86.711 ; History of DVT (deep vein thrombosis) Z86.718 ; Anxiety F41.9 and Tachycardia R00.0 [place] [address] [address] Feb, Anxiety 300.00 and Chronic p ain 338.29 [place] [address] [place] [id number] [address] [place] [address] Feb, [place] [address] [place] [id number] [address] [place] [address] Feb, [place] [address] [address] Jan, [employer] customer service current use of ant icoagulant therapy V58.61 and Dysuria 788.1 [place] [address] [place] [id number] [place] [address] Jan, Dysuria 788.1 [facility] [address] [place] [id number] [address] [place] [address] Jan, Anxiety 300.00 and Chronic p ain 338.29 [facility] [address] [place] [id number] [place] [address] Jan, [facility] [address] [address] Jan, [facility] [address] [address] Jan, [place] [address] [address] Dec, Weakness 780.79 [place] [address] [address] Dec, jail current use of ant icoagulant therapy V58.61 [place] [address] [address] Dec, Palpitations 785.1 ; Tremor 781.0 ; Weakness 780.79 ; jail current use of anticoagulant therapy V58.61 and Yeast vaginitis 112.1 [place] [address] [place] [id number] [address] [place] [address] Dec, [place] [address] [address] Dec, Cervicalgia 723.1 ; Tachycar yoseph 785.0 ; Pseudotumor cerebri 348.2 and History of venous thromboembolism V12.51 [place] [address] [address] Nov, [place] [address] [address] Nov, [place] [address] [address] Nov, Tachycardia 785.0 ; Pseudotu mor cerebri 348.2 ; Anxiety 300.00 and History of venous thromboembolism V12.51 [facility] [address] [id number] [address] [place] [address] Nov, [facility] [address] [id number] [address] [place] [address] 18 Nov, 2014 [facility] [address] [id number] [address] [place] [address] Nov, [facility] [address] [id number] [address] [place] [address] Nov, [facility] [address] [facility] [id number] [address] [place] [address] Nov, [facility] [address] [facility] [id number] [address] [place] [address] Nov, [facility] [address] [facility] [id number] [address] [place] [address] Nov, [facility] [address] [facility] [id number] [address] [place] [address] October, [facility] [address] [facility] [id number] [address] [place] [address] October, [facility] [address] [place] [id number] [address] [place] [address] October, Pain in thoracic spine 724.1 and Tachycardia 785.0 [facility] [address] [id number] [address] [place] [address] October, [facility] [address] [id number] [address] [place] [address] October, [facility] [address] [facility] [id number] [address] [place] [address] 14 Sep, 2014 [facility] [address] [facility] [id number] [address] [place] [address] Sep, [facility] [address] [id number] [facility] [place] [address] Aug, [facility] [address] [id number] [address] [place] [address], [place] [address] Aug, [facility] [address] [id number] [address] [place] [address], [place] [address] Aug, [facility] [address] [id number] [address] [place] [address], [place] [address] Aug, [facility] [address] [id number] [address] [place] [address], [place] [address] Aug, [facility] [address] [id number] [address] [place] [address], [place] [address] Aug, [facility] [address] [id number] [address] [place] [address], [place] [address] Aug, [facility] [address] [id number] [address] [place] [address], [place] [address] Aug, [facility] [address] [id number] [address] [place] [address], [place] [address] Aug, [facility] [address] [id number] [address] [place] [address], [place] [address] Aug, [facility] [address] [id number] [address] [place] [address], [place] [address] Aug, [facility] [address] [id number] [address] [place] [address], [place] [address] Aug, 2014 [facility] [address] [id number] [address] [place] [address], [place] [address] Jul, [facility] [address] [id number] [address] [place] [address], [place] [address] Jul, [facility] [address] [id number] [address] [place] [address], [place] [address] Jul, [facility] [address] [id number] [address] [place] [address], [place] [address] Jul, [facility] [address] [id number] [address] [place] [address], [place] [address] 23 Jul, 2014 [facility] [address] [id number] [address] [place] [address], [place] [address] 23 Jul, 2014 [facility] [address] [id number] [address] [place] [address], [place] [address] 23 Jul, 2014 [facility] [address] [id number] [address] [place] [address], [place] [address] 23 Jul, 2014 [facility] [address] [id number] [address] [place] [address], [place] [address] 20 Jul, 2014 [facility] [address] [id number] [address] [place] [address], [place] [address] 20 Jul, 2014 [facility] [address] [id number] [address] [place] [address], [place] [address] 19 Jul, 2014 [facility] [address] [id number] [address] [place] [address], [place] [address] 19 Jul, 2014 [facility] [address] [id number] [address] [place] [address], [place] [address] 17 Jul, 2014 [facility] [address] [id number] [address] [place] [address], [place] [address] 17 Jul, 2014 [facility] [address] [id number] [address] [place] [address], [place] [address] 16 Jul, 2014 [facility] [address] [id number] [address] [place] [address], [place] [address] 16 Jul, 2014 [facility] [address] [id number] [address] [place] [address], [place] [address] 16 Jul, 2014 [facility] [address] [id number] [address] [place] [address] 16 Jul, 2014 [facility] [address] [id number] [address] [place] [address] 13 Jul, 2014 [facility] [address] [id number] [address] [place] [address], [place] [address] Jul, [facility] [address] [id number] [address] [place] [address], [place] [address] Jul, [facility] [address] [id number] [address] [place] [address], [place] [address] Jul, 2014 [facility] [address] [id number] [address] [place] [address], [place] [address] Jul, 2014 [facility] [address] [id number] [address] [place] [address], [place] [address] Jul, [facility] [address] [id number] [address] [place] [address], [place] [address] Jul, [facility] [address] [id number] [address] [place] [address], [place] [address] Jul, [facility] [address] [id number] [address] [place] [address], [place] [address] Jul, [facility] [address] [id number] [address] [place] [address], [place] [address] Jul, [facility] [address] [id number] [address] [place] [address], [place] [address] Jul, [facility] [address] [id number] [address] [place] [address], [place] [address] Jul, [facility] [address] [id number] [address] [place] [address], [place] [address] Jun, [facility] [address] [id number] [address] [place] [address], [place] [address] Jun, [facility] [address] [id number] [address] [place] [address], [place] [address] Jun, [facility] [address] [id number] [address] [place] [address], [place] [address] Jun, [facility] [address] [id number] [address] [place] [address], [place] [address] Jun, [facility] [address] [id number] [address] [place] [address], [place] [address] Jun, [facility] [address] [id number] [address] [place] [address], [place] [address] Jun, [facility] [address] [id number] [address] [place] [address], [place] [address] Jun, [facility] [address] [id number] [address] [place] [address], [place] [address] Jun, [facility] [address] [id number] [address] [place] [address], [place] [address] Jun, [facility] [address] [id number] [address] [place] [address], [place] [address] Jun, [facility] [place] [address] [id number] [address] [place] [address], [place] [address] Jun, [facility] [address] [id number] [address] [place] [address], [place] [address] Jun, [facility] [address] [id number] [address] [place] [address], [place] [address] Jun, [facility] [address] [id number] [address] [place] [address], [place] [address] Jun, [facility] [place] [address] [id number] [address] [place] [address], [place] [address] Jun, [facility] [address] [id number] [address] [place] [address], [place] [address] Jun, [facility] [address] [id number] [address] [place] [address], [place] [address] Jun, [facility] [address] [id number] [address] [place] [address], [place] [address] Jun, [facility] [address] [id number] [address] [place] [address], [place] [address] Jun, [facility] [address] [id number] [address] [place] [address], [place] [address] May, [facility] [address] [id number] [address] [place] [address], [place] [address] May, [facility] [address] [id number] [address] [place] [address], [place] [address] May, [facility] [address] [id number] [address] [place] [address], [place] [address] May, [facility] [address] [id number] [address] [place] [address], [place] [address] May, [facility] [address] [id number] [address] [place] [address], [place] [address] May, [facility] [address] [id number] [address] [place] [address], [place] [address] May, [facility] [address] [id number] [address] [place] [address], [place] [address] May, [facility] [address] [id number] [address] [place] [address], [place] [address] May, [facility] [address] [id number] [address] [place] [address], [place] [address] May, [facility] [address] [id number] [address] [place] [address], [place] [address] May, [facility] [address] [id number] [address] [place] [address], [place] [address] 18 May, 2014 [facility] [address] [id number] [address] [place] [address], [place] [address] 18 May, 2014 [facility] [address] [id number] [address] [place] [address], [place] [address] 17 May, 2014 [facility] [address] [id number] [address] [place] [address], [place] [address] 16 May, 2014 [facility] [address] [id number] [address] [place] [address], [place] [address] 16 May, 2014 [facility] [address] [id number] [address] [place] [address], [place] [address] 15 May, 2014 [facility] [address] [id number] [address] [place] [address], [place] [address] 15 May, 2014 [facility] [address] [id number] [address] [place] [address], [place] [address] May, [facility] [address] [id number] [address] [place] [address], [place] [address] May, [facility] [address] [id number] [address] [place] [address], [place] [address] May, [facility] [address] [id number] [address] [place] [address], [place] [address] May, [facility] [address] [id number] [address] [place] [address], [place] [address] May, [facility] [address] [id number] [address] [place] [address], [place] [address] May, [facility] [address] [id number] [address] [place] [address], [place] [address] May, [facility] [address] [id number] [address] [place] [address], [place] [address] May, [facility] [address] [id number] [address] [place] [address], [place] [address] May, [facility] [address] [id number] [address] [place] [address], [place] [address] May, [facility] [address] [id number] [address] [place] [address], [place] [address] May, [facility] [address] [id number] [address] [place] [address], [place] [address] May, [facility] [address] [id number] [address] [place] [address], [place] [address] May, [facility] [address] [id number] [address] [place] [address], [place] [address] May, [facility] [address] [id number] [address] [place] [address], [place] [address] May, [facility] [address] [id number] [address] [place] [address], [place] [address] May, [facility] [address] [id number] [address] [place] [address], [place] [address] Apr, [facility] [address] [id number] [address] [place] [address], [place] [address] Apr, [facility] [address] [id number] [address] [place] [address], [place] [address] Apr, [facility] [address] [id number] [address] [place] [address], [place] [address] Apr, [facility] [address] [id number] [address] [place] [address], [place] [address] Apr, [facility] [address] [id number] [address] [place] [address], [place] [address] Apr, [facility] [address] [id number] [address] [place] [address], [place] [address] Apr, [facility] [address] [id number] [address] [place] [address], [place] [address] Apr, [facility] [address] [id number] [address] [place] [address], [place] [address] Apr, [facility] [address] [id number] [address] [place] [address], [place] [address] Apr, [facility] [address] [id number] [address] [place] [address], [place] [address] Mar, [facility] [address] [id number] [address] [place] [address], [place] [address] Mar, [facility] [address] [id number] [address] [place] [address] [address] Mar, [facility] [address] [id number] [address] [place] [address], [place] [address] 31 Mar, 2013 [facility] [address] [id number] [address] [place] [address], [place] [address] Mar, [facility] [address] [id number] [address] [place] [address], [place] [address] 30 Mar, 2014 [facility] [address] [id number] [address] [place] [address], [place] [address] Mar, [facility] [address] [id number] [address] [place] [address], [place] [address] Mar, [facility] [address] [id number] [address] [place] [address], [place] [address] Mar, [facility] [address] [id number] [address] [place] [address], [place] [address] Mar, [facility] [address] [id number] [address] [place] [id number] Mar, [facility] [address] [id number] [address] [place] [id number] Mar, [facility] [address] [id number] [address] [place] [id number] Mar, [facility] [address] [id number] [address] [place] [id number] Mar, 2013 [facility] [address] [id number] [address] [place] [id number] Mar, 2013 [facility] [address] [id number] [address] [place] [id number] Mar, [facility] [address] [id number] [address] [place] [id number] Mar, [facility] [address] [id number] [address] [place] [id number] Mar, 2013 [facility] [address] [id number] [address] [place] [address], [place] [address] 02 Mar, 2013 [facility] [address] [id number] [address] [place] [address], [place] [address] 02 Mar, 2013 [facility] [address] [id number] [address] [place] [address], [place] [address] 05 Sep, 2013 [facility] [address] [id number] [address] [place] [address], [place] [address] 05 Sep, 2013 [facility] [address] [id number] [address] [place] [address], [place] [address] 04 Sep, 2013 [facility] [address] [id number] [address] [place] [address], [place] [address] 04 Sep, 2013 [facility] [address] [id number] [address] [place] [address], [place] [address] 03 Feb, 2013 [facility] [address] [id number] [address] [place] [address], [place] [address] 03 Feb, 2013 [facility] [address] [id number] [address] [place] [address], [place] [address] 02 Feb, 2013 [facility] [address] [id number] [address] [place] [address], [place] [address] Feb, 2013 [facility] [address] [id number] [address] [place] [address], [place] [address] 02 Feb, 2013 [facility] [address] [id number] [address] [place] [address], [place] [address] Feb, 2013 [facility] [address] [id number] [address] [place] [address], [place] [address] Jan, [facility] [address] [id number] [address] [place] [address], [place] [address] Jan, [facility] [address] [id number] [address] [place] [address], [place] [address] Jan, [facility] [address] [id number] [address] [place] [address], [place] [address] Jan, [facility] [address] [id number] [facility] [place] [address] Jan, [facility] [address] [id number] [address] [place] [address], [place] [address] Jan, [facility] [address] [id number] [address] [place] [address], [place] [address] Jan, [facility] [address] [id number] [address] [place] [address], [place] [address] Jan, [facility] [address] [id number] [address] [place] [address], [place] [address] Jan, [facility] [address] [id number] [address] [place] [address], [place] [address] Jan, [facility] [address] [id number] [address] [place] [address], [place] [address] Jan, [facility] [address] [id number] [address] [place] [address], [place] [address] Jan, [facility] [address] [id number] [address] [place] [address], [place] [address] Dec, [facility] [address] [id number] [address] [place] [address], [place] [address] Dec, [facility] [address] [id number] [address] [place] [address], [place] [address] Dec, [facility] [address] [id number] [address] [place] [address], [place] [address] Dec, [facility] [address] [id number] [address] [place] [address], [place] [address] Dec, [facility] [address] [id number] [address] [place] [address], [place] [address] Dec, [facility] [address] [id number] [address] [place] [address], [place] [address] Dec, [facility] [address] [id number] [address] [place] [address], [place] [address] Dec, [facility] [address] [id number] [facility] [place] [address] Dec, [facility] [address] [id number] [address] [place] [address], [place] [address] Dec, [facility] [address] [id number] [address] [place] [address], [place] [address] Dec, [facility] [address] [id number] [address] [place] [address], [place] [address] Dec, [facility] [address] [id number] [address] [place] [address], [place] [address] Nov, [facility] [address] [id number] [address] [place] [address], [place] [address] Nov, [facility] [address] [id number] [address] [place] [address], [place] [address] Nov, [facility] [address] [id number] [address] [place] [address], [place] [address] Nov, [facility] [address] [id number] [address] [place] [address], [place] [address] Nov, [facility] [address] [id number] [address] [place] [address], [place] [address] Nov, [facility] [address] [id number] [address] [place] [address], [place] [address] Nov, [facility] [address] [id number] [address] [place] [address], [place] [address] Nov, [facility] [address] [id number] [address] [place] [address], [place] [address] Nov, [facility] [address] [id number] [address] [place] [address], [place] [address] Nov, [facility] [address] [id number] [address] [place] [address], [place] [address] Nov, [facility] [address] [id number] [facility] [place] [address] Nov, [facility] [address] [id number] [address] [place] [address], [place] [address] Nov, [facility] [address] [id number] [address] [place] [address], [place] [address] Nov, [facility] [address] [id number] [address] [place] [address], [place] [address] October, [facility] [address] [id number] [address] [place] [address], [place] [address] October, [facility] [address] [id number] [address] [place] [address], [place] [address] October, [facility] [address] [id number] [address] [place] [address], [place] [address] October, [facility] [address] [id number] [address] [place] [address], [place] [address] October, [facility] [address] [id number] [address] [place] [address], [place] [address] October, [facility] [address] [id number] [address] [place] [address], [place] [address] October, [facility] [address] [id number] [address] [place] [address], [place] [address] October, [facility] [address] [id number] [address] [place] [address], [place] [address] October, [facility] [address] [id number] [address] [place] [address], [place] [address] October, [facility] [address] [id number] [address] [place] [address], [place] [address] October, [facility] [address] [id number] [address] [place] [address], [place] [address] October, [facility] [address] [id number] [address] [place] [address], [place] [address] Sep, [facility] [address] [id number] [facility] [place] [address] Sep, [facility] [address] [id number] [address] [place] [address], [place] [address] Sep, [facility] [address] [id number] [facility] [place] [address] Sep, [facility] [address] [id number] [address] [place] [address], [place] [address] Sep, [facility] [address] [id number] [address] [place] [address], [place] [address] Sep, [facility] [address] [id number] [address] [place] [address], [place] [address] Aug, [facility] [address] [id number] [address] [place] [address], [place] [address] Aug, [facility] [address] [id number] [address] [place] [address], [place] [address] Aug, [facility] [address] [id number] [address] [place] [address], [place] [address] Aug, [facility] [address] [id number] [address] [place] [address], [place] [address] Aug, [facility] [address] [id number] [address] [place] [address], [place] [address] Aug, [facility] [address] [id number] [address] [place] [address], [place] [address] Jul, [facility] [address] [id number] [address] [place] [address], [place] [address] Jul, [facility] [address] [id number] [address] [place] [address], [place] [address] Jul, [facility] [address] [id number] [address] [place] [address], [place] [address] Jul, [facility] [address] [id number] [address] [place] [address], [place] [address] 13 Jul, 2013 [facility] [address] [id number] [address] [place] [address], [place] [address] Jul, [facility] [address] [id number] [address] [place] [address], [place] [address] Jul, [facility] [address] [id number] [address] [place] [address], [place] [address] Jul, [facility] [address] [id number] [address] [place] [address], [place] [address] Jul, [facility] [address] [id number] [address] [place] [address], [place] [address] Jul, [facility] [address] [id number] [address] [place] [address], [place] [address] Jun, [facility] [address] [id number] [address] [place] [address], [place] [address] Jun, [facility] [place] [address] [id number] [address] [place] [address], [place] [address] Jun, [facility] [address] [id number] [address] [place] [address], [place] [address] Jun, [facility] [address] [id number] [address] [place] [address], [place] [address] Jun, [facility] [address] [id number] [address] [place] [address], [place] [address] Jun, [facility] [address] [id number] [address] [place] [address], [place] [address] Jun, [facility] [address] [id number] [address] [place] [address], [place] [address] Jun, [facility] [address] [id number] [address] [place] [address], [place] [address] May, [facility] [address] [id number] [address] [place] [address], [place] [address] May, [facility] [address] [id number] [address] [place] [address], [place] [address] May, [facility] [address] [id number] [address] [place] [address], [place] [address] May, [facility] [address] [id number] [address] [place] [address], [place] [address] May, [facility] [address] [id number] [address] [place] [address], [place] [address] May, [facility] [address] [id number] [address] [place] [address], [place] [address] May, [facility] [address] [id number] [address] [place] [address], [place] [address] May, [facility] [address] [id number] [address] [place] [address], [place] [address] Apr, [facility] [address] [id number] [address] [place] [address] Apr, [facility] [address] [id number] [address] [place] [address], [place] [address] Apr, [facility] [address] [id number] [address] [place] [address] Apr, [facility] [address] [id number] [address] [place] [address] Apr, [facility] [address] [id number] [address] [place] [address] Apr, [facility] [address] [id number] [address] [place] [address], [place] [address] Mar, [facility] [address] [id number] [address] [place] [address] Mar, [facility] [address] [id number] [address] [place] [address], [place] [address] Mar, [facility] [address] [id number] [address] [place] [address], [place] [address] Mar, [facility] [address] [id number] [address] [place] [address], [place] [address] Mar, [facility] [address] [id number] [address] [place] [address], [place] [address] Mar, [facility] [address] [id number] [address] [place] [address], [place] [address] Mar, [facility] [address] [id number] [address] [place] [address], [place] [address] 30 Feb, 2012 [facility] [address] [id number] [address] [place] [address], [place] [address] 30 Feb, 2013 [facility] [address] [id number] [address] [place] [address], [place] [address] 27 Feb, 2013 [facility] [address] [id number] [address] [place] [address], [place] [address] Feb, 2012 [facility] [address] [id number] [address] [place] [address], [place] [address] Feb, [facility] [address] [id number] [address] [place] [address], [place] [address] Feb, [facility] [address] [id number] [address] [place] [address], [place] [address] Jan, [facility] [address] [id number] [address] [place] [address], [place] [address] Jan, [facility] [address] [id number] [address] [place] [address], [place] [address] Jan, [facility] [address] [id number] [address] [place] [address], [place] [address] Jan, [facility] [address] [id number] [address] [place] [address], [place] [address] Jan, [facility] [address] [id number] [address] [place] [address], [place] [address] Jan, [facility] [address] [id number] [address] [place] [address], [place] [address] Jan, [facility] [address] [id number] [address] [place] [address], [place] [address] Jan, [facility] [address] [id number] [address] [place] [address], [place] [address] Jan, [facility] [address] [id number] [address] [place] [address], [place] [address] Dec, [facility] [address] [id number] [address] [place] [address], [place] [address] Dec, [facility] [address] [id number] [address] [place] [address], [place] [address] Dec, [facility] [address] [id number] [address] [place] [address], [place] [address] Dec, [facility] [address] [id number] [address] [place] [address], [place] [address] Dec, [facility] [address] [id number] [address] [place] [address], [place] [address] Dec, [facility] [address] [id number] [address] [place] [address], [place] [address] Dec, [facility] [address] [id number] [address] [place] [address], [place] [address] Dec, [facility] [address] [id number] [address] [place] [address], [place] [address] Dec, [facility] [address] [id number] [address] [place] [address], [place] [address] Dec, [facility] [address] [id number] [address] [place] [address], [place] [address] Dec, [facility] [address] [id number] [address] [place] [address], [place] [address] Dec, [facility] [address] [id number] [address] [place] [address], [place] [address] Dec, [facility] [place] [address] [id number] [address] [place] [address], [place] [address] Nov, [facility] [address] [id number] [address] [place] [address], [place] [address] Nov, [facility] [address] [id number] [address] [place] [address], [place] [address] Nov, [facility] [address] [id number] [address] [place] [address], [place] [address] Nov, [facility] [address] [id number] [address] [place] [address], [place] [address] October, [facility] [address] [id number] [address] [place] [address], [place] [address] October, [facility] [address] [id number] [address] [place] [address], [place] [address] October, [facility] [address] [id number] [address] [place] [address], [place] [address] October, [facility] [place] [address] [id number] [address] [place] [address], [place] [address] October, [facility] [address] [id number] [address] [place] [address], [place] [address] October, [facility] [place] [address] [id number] [address] [place] [address], [place] [address] Sep, [facility] [address] [id number] [address] [place] [address], [place] [address] Sep, [facility] [address] [id number] [address] [place] [address], [place] [address] Sep, [facility] [address] [id number] [address] [place] [address], [place] [address] Sep, [facility] [address] [id number] [address] [place] [address], [place] [address] Sep, [facility] [address] [id number] [facility] [place] [address] 16 Sep, 2012 [facility] [place] [address] [id number] [address] [place] [address], [place] [address] 12 Sep, 2012 [facility] [address] [id number] [address] [place] [address], [place] [address] Sep, [facility] [address] [id number] [address] [place] [address], [place] [address] Sep, [facility] [place] [address] [id number] [address] [place] [address], [place] [address] Sep, [facility] [place] [address] [id number] [address] [place] [address], [place] [address] Sep, [facility] [address] [id number] [address] [place] [address], [place] [address] Aug, [facility] [address] [id number] [address] [place] [address], [place] [address] 25 Aug, 2012 [facility] [address] [id number] [address] [place] [address], [place] [address] 25 Aug, 2012 [facility] [address] [id number] [address] [place] [address], [place] [address] 21 Aug, 2012 [facility] [address] [id number] [address] [place] [address], [place] [address] 19 Aug, 2012 [facility] [address] [id number] [address] [place] [address], [place] [address] 18 Aug, 2012 [facility] [address] [id number] [address] [place] [address], [place] [address] 17 Aug, 2012 [facility] [place] [address] [id number] [address] [place] [address], [place] [address] 15 Aug, 2012 [facility] [address] [id number] [address] [place] [address], [place] [address] 15 Aug, 2012 [facility] [address] [id number] [address] [place] [address], [place] [address] Aug, [facility] [address] [id number] [address] [place] [address], [place] [address] Aug, [facility] [address] [id number] [address] [place] [address], [place] [address] Aug, [facility] [address] [id number] [address] [place] [address], [place] [address] Jul, [facility] [address] [id number] [address] [place] [address], [place] [address] Jul, [facility] [address] [id number] [address] [place] [address], [place] [address] Jul, [facility] [address] [id number] [address] [place] [address], [place] [address] Jul, [facility] [address] [id number] [address] [place] [address], [place] [address] Jul, [facility] [address] [id number] [address] [place] [address], [place] [address] Jul, [facility] [address] [id number] [address] [place] [address], [place] [address] Jul, [facility] [place] [address] [id number] [address] [place] [address], [place] [address] Jul, [facility] [address] [id number] [address] [place] [address], [place] [address] Jul, [facility] [address] [id number] [address] [place] [address], [place] [address] Jul, [facility] [address] [id number] [address] [place] [address], [place] [address] May, [facility] [address] [id number] [id number] May, [facility] [address] [id number] [address] [place] [address], [place] [address] May, [facility] [address] [id number] [address] [place] [id number] May, [facility] [address] [facility] [id number] [address] [place] [id number] May, [facility] [address] [facility] [id number] [address] [place] [id number] Apr, [facility] [address] [id number] [place] [id number] Apr, [facility] [address] [facility] [id number] [address] [place] [id number] Apr, [facility] [address] [facility] [id number] [address] [place] [id number] Mar, [facility] [address] [id number] [place] [id number] Mar, [facility] [address] [facility] [id number] [address] [place] [id number] Mar, [facility] [address] [id number] [place] [id number] Feb, [facility] [address] [facility] [id number] [address] [place] [id number] Feb, [facility] [address] [facility] [id number] [address] [place] [id number] Feb, [facility] [place] [address] [id number] [place] [id number] Feb, [facility] [address] [id number] [place] [id number] Feb, [facility] [address] [id number] [place] [id number] Jan, [facility] [address] [id number] [address] [place] [address], [place] [address] Jan, [facility] [address] [id number] [place] [id number] Jan, [facility] [address] [id number] [place] [id number] Jan, [facility] [address] [id number] [place] [id number] Jan, [facility] [address] [facility] [id number] [address] [place] [address], [place] [address] Jan, [facility] [address] [facility] [id number] [address] [place] [address], [place] [address] Jan, [facility] [address] [facility] [id number] [address] [place] [address], [place] [address] Aug, [facility] [address] [id number] [place] [id number] Aug, [facility] [address] [facility] [id number] [address] [place] [address], [place] [address] Jul, [facility] [address] [facility] [id number] [address] [place] [address], [place] [address] Jul, [facility] [address] [facility] [id number] [address] [place] [address], [place] [address] Jul, [facility] [address] [id number] [place] [id number] Jul, [facility] [address] [facility] [id number] [address] [place] [address], [place] [address] Jul, [facility] [address] [id number] [place] [id number] Jul, [facility] [address] [facility] [id number] [address] [place] [address], [place] [address] Jul, [facility] [place] [address] [id number] [place] [id number] Jul, [facility] [place] [address] [id number] [place] [id number] Jul, [facility] [address] [id number] [place] [id number] Jul, [facility] [address] [facility] [id number] [address] [place] [address], [place] [address] May, [facility] [address] [id number] [address] [place] [id number] May, [facility] [address] [id number] [address] [place] [id number] May, [facility] [address] [id number] [address] [place] [id number] Apr, [facility] [address] [id number] [address] [place] [phone] Jan, [facility] [address] [id number] [address] [place] [id number] Jan, [facility] [address] [id number] [address] [place] [id number] Dec, [facility] [address] [id number] [address] [place] [id number] Dec, [facility] [address] [id number] [address] [place] [phone] May, [facility] [address] [id number] [address] [place] [phone] Mar, [facility] [address] [id number] [address] [place] [id number] Mar, [facility] [address] [id number] [address] [place] [id number] Jan, IMMUNIZATIONS No Known Immunizations SOCIAL HISTORY Never Assessed REASON FOR VISIT PLAN OF CARE VITAL SIGNS MEDICATIONS Unknown Medications RESULTS No Results PROCEDURES Procedure Date Ordered Result Body Site PROTHROMBIN TIME Apr 08, 2014 INSTRUCTIONS MEDICATIONS ADMINISTERED No Known [...]
--- OUTSIDE RECORDS SUMMARY | 2020-01-28 12:50 | XMS REPORT ---
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 Active 620246891 Problem History of venous thromboembolism V12.51 Active 920526779 Problem Cellulitis of unspecified part of limb L03.119 Active 078279803 Problem Gastroesophageal reflux disease without esophagitis K21.9 Active 311763432 Problem History of pulmonary embolism Z86.711 Active 955357692 Problem Pseudotumor cerebri G93.2 Active 76662263 Problem History of DVT (deep vein thrombosis) Z86.718 Active [id number] ALLERGIES No Information ENCOUNTERS Encounter Location Date Diagnosis [place] [id number] [facility] [id number] [address] [place] [id number] Apr, [facility]DC (current) use of 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 Z79.01 [facility] [address] [facility] [id number] [address] [place] [address] Apr, [facility]DC 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.01 [facility] [address] [facility] [id number] [address] [place] [id number] Apr, Cellulitis of unspecified pa rt of limb L03.119 ; Allergic contact dermatitis due to adhesives L23.1 and Chronic pain syndrome G89.4 [facility] [address] [facility] [id number] [address] [place] [address] Apr, [place] [address] [place] [id number] [address] [place] [address] Apr, 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 ; Cellulitis of unspecified part of limb L03.119 ; Chronic pain syndrome G89.4 and Anxiety F41.9 [facility] [address] [place] [id number] [address] [place] [phone] 16 Apr, 2015 [facility] [address] [place] [id number] [place] [address] Apr, [place] [address] [place] [id number] [place] [address] Mar, [place] [address] [address] Mar, [place] [address] [address] Mar, Sore throat J02.9 ; Gastroes ophageal reflux disease without esophagitis K21.9 ; Pseudotumor cerebri G93.2 ; Chronic pain syndrome G89.4 ; Choriocarcinoma C58 ; History of pulmonary embolism Z86.711 ; History of DVT (deep vein thrombosis) Z86.718 ; Anxiety F41.9 and Tachycardia R00.0 [place] [address] [address] Feb, Anxiety 300.00 and Chronic p ain 338.29 [place] [address] [place] [id number] [address] [place] [phone] Feb, [place] [address] [place] [id number] [address] [place] [phone] Feb, [place] [address] [address] Jan, 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 V58.61 and Dysuria 788.1 [place] [address] [place] [id number] [place] [address] Jan, Dysuria 788.1 [facility] [address] [place] [id number] [address] [place] [address] Jan, Anxiety 300.00 and Chronic p ain 338.29 [facility] [address] [place] [id number] [place] [address] Jan, [facility] [address] [address] Jan, [facility] [address] [address] Jan, [place] [address] [address] Dec, Weakness 780.79 [place] [address] [address] Dec, [facility]DC current use of ant icoagulant therapy V58.61 [place] [address] [address] Dec, Palpitations 785.1 ; Tremor 781.0 ; Weakness 780.79 ; [facility]DC current use of anticoagulant therapy V58.61 and Yeast vaginitis 112.1 [place] [address] [place] [id number] [address] [place] [address] Dec, [place] [address] [address] Dec, Cervicalgia 723.1 ; Tachycar yoseph 785.0 ; Pseudotumor cerebri 348.2 and History of venous thromboembolism V12.51 [place] [address] [address] Nov, [place] [address] [address] Nov, [place] [address] [address] Nov, Tachycardia 785.0 ; Pseudotu mor cerebri 348.2 ; Anxiety 300.00 and History of venous thromboembolism V12.51 [facility] [address] [id number] [address] [place] [phone] Nov, [facility] [address] [id number] [address] [place] [phone] 18 Nov, 2014 [facility] [address] [id number] [address] [place] [address] Nov, [facility] [address] [id number] [address] [place] [phone] Nov, [facility] [address] [facility] [id number] [address] [place] [phone] Nov, [facility] [address] [facility] [id number] [address] [place] [phone] Nov, [facility] [address] [facility] [id number] [address] [place] [address] Nov, [facility] [address] [facility] [id number] [address] [place] [phone] October, [facility] [address] [facility] [id number] [address] [place] [phone] October, [facility] [address] [place] [id number] [address] [place] [phone] October, Pain in thoracic spine 724.1 and Tachycardia 785.0 [facility] [address] [id number] [address] [place] [phone] October, [facility] [address] [id number] [address] [place] [phone] October, [facility] [address] [facility] [id number] [address] [place] [phone] 14 Sep, 2014 [facility] [address] [facility] [id number] [address] [place] [phone] Sep, [facility] [address] [id number] [facility] [place] [address] Aug, [facility] [address] [id number] [address] [place] [address], [place] [address] Aug, [facility] [address] [id number] [address] [place] [address], [place] [address] Aug, [facility] [address] [id number] [address] [place] [address], [place] [address] Aug, [facility] [address] [id number] [address] [place] [address], [place] [address] Aug, [facility] [address] [id number] [address] [place] [address], [place] [address] Aug, [facility] [address] [id number] [address] [place] [address], [place] [address] Aug, [facility] [address] [id number] [address] [place] [address], [place] [address] Aug, [facility] [address] [id number] [address] [place] [address], [place] [address] Aug, [facility] [address] [id number] [address] [place] [address], [place] [address] Aug, [facility] [address] [id number] [address] [place] [address], [place] [address] Aug, [facility] [address] [id number] [address] [place] [address], [place] [address] Aug, 2014 [facility] [address] [id number] [address] [place] [address], [place] [address] Jul, [facility] [address] [id number] [address] [place] [address], [place] [address] Jul, [facility] [address] [id number] [address] [place] [address], [place] [address] Jul, [facility] [address] [id number] [address] [place] [address], [place] [address] Jul, [facility] [address] [id number] [address] [place] [address], [place] [address] 23 Jul, 2014 [facility] [address] [id number] [address] [place] [address], [place] [address] 23 Jul, 2014 [facility] [address] [id number] [address] [place] [address], [place] [address] 23 Jul, 2014 [facility] [address] [id number] [address] [place] [address], [place] [address] 23 Jul, 2014 [facility] [address] [id number] [address] [place] [address], [place] [address] 20 Jul, 2014 [facility] [address] [id number] [address] [place] [address], [place] [address] 20 Jul, 2014 [facility] [address] [id number] [address] [place] [address], [place] [address] 19 Jul, 2014 [facility] [address] [id number] [address] [place] [address], [place] [address] 19 Jul, 2014 [facility] [address] [id number] [address] [place] [address], [place] [address] 17 Jul, 2014 [facility] [address] [id number] [address] [place] [address], [place] [address] 17 Jul, 2014 [facility] [address] [id number] [address] [place] [address], [place] [address] 16 Jul, 2014 [facility] [address] [id number] [address] [place] [address], [place] [address] 16 Jul, 2014 [facility] [address] [id number] [address] [place] [address], [place] [address] 16 Jul, 2014 [facility] [address] [id number] [address] [place] [address] 16 Jul, 2014 [facility] [address] [id number] [address] [place] [phone] 13 Jul, 2014 [facility] [address] [id number] [address] [place] [address], [place] [address] Jul, [facility] [address] [id number] [address] [place] [address], [place] [address] Jul, [facility] [address] [id number] [address] [place] [address], [place] [address] Jul, 2014 [facility] [address] [id number] [address] [place] [address], [place] [address] Jul, 2014 [facility] [address] [id number] [address] [place] [address], [place] [address] Jul, [facility] [address] [id number] [address] [place] [address], [place] [address] Jul, [facility] [address] [id number] [address] [place] [address], [place] [address] Jul, [facility] [address] [id number] [address] [place] [address], [place] [address] Jul, [facility] [address] [id number] [address] [place] [address], [place] [address] Jul, [facility] [address] [id number] [address] [place] [address], [place] [address] Jul, [facility] [address] [id number] [address] [place] [address], [place] [address] Jul, [facility] [address] [id number] [address] [place] [address], [place] [address] Jun, [facility] [address] [id number] [address] [place] [address], [place] [address] Jun, [facility] [address] [id number] [address] [place] [address], [place] [address] Jun, [facility] [address] [id number] [address] [place] [address], [place] [address] Jun, [facility] [address] [id number] [address] [place] [address], [place] [address] Jun, [facility] [address] [id number] [address] [place] [address], [place] [address] Jun, [facility] [address] [id number] [address] [place] [address], [place] [address] Jun, [facility] [address] [id number] [address] [place] [address], [place] [address] Jun, [facility] [address] [id number] [address] [place] [address], [place] [address] Jun, [facility] [address] [id number] [address] [place] [address], [place] [address] Jun, [facility] [address] [id number] [address] [place] [address], [place] [address] Jun, [facility] [address] [id number] [address] [place] [address], [place] [address] Jun, [facility] [address] [id number] [address] [place] [address], [place] [address] Jun, [facility] [address] [id number] [address] [place] [address], [place] [address] Jun, [facility] [address] [id number] [address] [place] [address], [place] [address] Jun, [facility] [address] [id number] [address] [place] [address], [place] [address] Jun, [facility] [address] [id number] [address] [place] [address], [place] [address] Jun, [facility] [address] [id number] [address] [place] [address], [place] [address] Jun, [facility] [address] [id number] [address] [place] [address], [place] [address] Jun, [facility] [address] [id number] [address] [place] [address], [place] [address] Jun, [facility] [address] [id number] [address] [place] [address], [place] [address] May, [facility] [address] [id number] [address] [place] [address], [place] [address] May, [facility] [address] [id number] [address] [place] [address], [place] [address] May, [facility] [address] [id number] [address] [place] [address], [place] [address] May, [facility] [address] [id number] [address] [place] [address], [place] [address] May, [facility] [address] [id number] [address] [place] [address], [place] [address] May, [facility] [address] [id number] [address] [place] [address], [place] [address] May, [facility] [address] [id number] [address] [place] [address], [place] [address] May, [facility] [address] [id number] [address] [place] [address], [place] [address] May, [facility] [address] [id number] [address] [place] [address], [place] [address] May, [facility] [address] [id number] [address] [place] [address], [place] [address] May, [facility] [address] [id number] [address] [place] [address], [place] [address] 18 May, 2014 [facility] [address] [id number] [address] [place] [address], [place] [address] 18 May, 2014 [facility] [address] [id number] [address] [place] [address], [place] [address] 17 May, 2014 [facility] [address] [id number] [address] [place] [address], [place] [address] 16 May, 2014 [facility] [address] [id number] [address] [place] [address], [place] [address] 16 May, 2014 [facility] [address] [id number] [address] [place] [address], [place] [address] 15 May, 2014 [facility] [address] [id number] [address] [place] [address], [place] [address] 15 May, 2014 [facility] [address] [id number] [address] [place] [address], [place] [address] May, [facility] [address] [id number] [address] [place] [address], [place] [address] May, [facility] [address] [id number] [address] [place] [address], [place] [address] May, [facility] [address] [id number] [address] [place] [address], [place] [address] May, [facility] [address] [id number] [address] [place] [address], [place] [address] May, [facility] [address] [id number] [address] [place] [address], [place] [address] May, [facility] [address] [id number] [address] [place] [address], [place] [address] May, [facility] [address] [id number] [address] [place] [address], [place] [address] May, [facility] [address] [id number] [address] [place] [address], [place] [address] May, [facility] [address] [id number] [address] [place] [address], [place] [address] May, [facility] [address] [id number] [address] [place] [address], [place] [address] May, [facility] [address] [id number] [address] [place] [address], [place] [address] May, [facility] [address] [id number] [address] [place] [address], [place] [address] May, [facility] [address] [id number] [address] [place] [address], [place] [address] May, [facility] [address] [id number] [address] [place] [address], [place] [address] May, [facility] [address] [id number] [address] [place] [address], [place] [address] May, [facility] [address] [id number] [address] [place] [address], [place] [address] Apr, [facility] [address] [id number] [address] [place] [address], [place] [address] Apr, [facility] [address] [id number] [address] [place] [address], [place] [address] Apr, [facility] [address] [id number] [address] [place] [address], [place] [address] Apr, [facility] [address] [id number] [address] [place] [address], [place] [address] Apr, [facility] [address] [id number] [address] [place] [address], [place] [address] Apr, [facility] [address] [id number] [address] [place] [address], [place] [address] Apr, [facility] [address] [id number] [address] [place] [address], [place] [address] Apr, [facility] [address] [id number] [address] [place] [address], [place] [address] Apr, [facility] [address] [id number] [address] [place] [address], [place] [address] Apr, [facility] [address] [id number] [address] [place] [address], [place] [address] Mar, [facility] [address] [id number] [address] [place] [address], [place] [address] Mar, [facility] [address] [id number] [address] [place] [address] [address] Mar, [facility] [address] [id number] [address] [place] [address], [place] [address] 31 Mar, 2013 [facility] [address] [id number] [address] [place] [address], [place] [address] Mar, [facility] [address] [id number] [address] [place] [address], [place] [address] 30 Mar, 2014 [facility] [address] [id number] [address] [place] [address], [place] [address] Mar, [facility] [address] [id number] [address] [place] [address], [place] [address] Mar, [facility] [address] [id number] [address] [place] [address], [place] [address] Mar, [facility] [address] [id number] [address] [place] [address], [place] [address] Mar, [facility] [address] [id number] [address] [place] [id number] Mar, [facility] [address] [id number] [address] [place] [id number] Mar, [facility] [address] [id number] [address] [place] [id number] Mar, [facility] [address] [id number] [address] [place] [id number] Mar, 2013 [facility] [address] [id number] [address] [place] [id number] Mar, 2013 [facility] [address] [id number] [address] [place] [id number] Mar, [facility] [address] [id number] [address] [place] [id number] Mar, [facility] [address] [id number] [address] [place] [id number] Mar, 2013 [facility] [address] [id number] [address] [place] [address], [place] [address] 02 Mar, 2013 [facility] [address] [id number] [address] [place] [address], [place] [address] 02 Mar, 2013 [facility] [address] [id number] [address] [place] [address], [place] [address] 05 Sep, 2013 [facility] [address] [id number] [address] [place] [address], [place] [address] 05 Sep, 2013 [facility] [address] [id number] [address] [place] [address], [place] [address] 04 Sep, 2013 [facility] [address] [id number] [address] [place] [address], [place] [address] 04 Sep, 2013 [facility] [address] [id number] [address] [place] [address], [place] [address] 03 Feb, 2013 [facility] [address] [id number] [address] [place] [address], [place] [address] 03 Feb, 2013 [facility] [address] [id number] [address] [place] [address], [place] [address] 02 Feb, 2013 [facility] [address] [id number] [address] [place] [address], [place] [address] Feb, 2013 [facility] [address] [id number] [address] [place] [address], [place] [address] 02 Feb, 2013 [facility] [address] [id number] [address] [place] [address], [place] [address] Feb, 2013 [facility] [address] [id number] [address] [place] [address], [place] [address] Jan, [facility] [address] [id number] [address] [place] [address], [place] [address] Jan, [facility] [address] [id number] [address] [place] [address], [place] [address] Jan, [facility] [address] [id number] [address] [place] [address], [place] [address] Jan, [facility] [address] [id number] [facility] [place] [address] Jan, [facility] [address] [id number] [address] [place] [address], [place] [address] Jan, [facility] [address] [id number] [address] [place] [address], [place] [address] Jan, [facility] [address] [id number] [address] [place] [address], [place] [address] Jan, [facility] [address] [id number] [address] [place] [address], [place] [address] Jan, [facility] [address] [id number] [address] [place] [address], [place] [address] Jan, [facility] [address] [id number] [address] [place] [address], [place] [address] Jan, [facility] [address] [id number] [address] [place] [address], [place] [address] Jan, [facility] [address] [id number] [address] [place] [address], [place] [address] Dec, [facility] [address] [id number] [address] [place] [address], [place] [address] Dec, [facility] [address] [id number] [address] [place] [address], [place] [address] Dec, [facility] [address] [id number] [address] [place] [address], [place] [address] Dec, [facility] [address] [id number] [address] [place] [address], [place] [address] Dec, [facility] [address] [id number] [address] [place] [address], [place] [address] Dec, [facility] [address] [id number] [address] [place] [address], [place] [address] Dec, [facility] [address] [id number] [address] [place] [address], [place] [address] Dec, [facility] [address] [id number] [facility] [place] [address] Dec, [facility] [address] [id number] [address] [place] [address], [place] [address] Dec, [facility] [address] [id number] [address] [place] [address], [place] [address] Dec, [facility] [address] [id number] [address] [place] [address], [place] [address] Dec, [facility] [address] [id number] [address] [place] [address], [place] [address] Nov, [facility] [address] [id number] [address] [place] [address], [place] [address] Nov, [facility] [address] [id number] [address] [place] [address], [place] [address] Nov, [facility] [address] [id number] [address] [place] [address], [place] [address] Nov, [facility] [address] [id number] [address] [place] [address], [place] [address] Nov, [facility] [address] [id number] [address] [place] [address], [place] [address] Nov, [facility] [address] [id number] [address] [place] [address], [place] [address] Nov, [facility] [address] [id number] [address] [place] [address], [place] [address] Nov, [facility] [address] [id number] [address] [place] [address], [place] [address] Nov, [facility] [address] [id number] [address] [place] [address], [place] [address] Nov, [facility] [address] [id number] [address] [place] [address], [place] [address] Nov, [facility] [address] [id number] [facility] [place] [address] Nov, [facility] [address] [id number] [address] [place] [address], [place] [address] Nov, [facility] [address] [id number] [address] [place] [address], [place] [address] Nov, [facility] [address] [id number] [address] [place] [address], [place] [address] October, [facility] [address] [id number] [address] [place] [address], [place] [address] October, [facility] [address] [id number] [address] [place] [address], [place] [address] October, [facility] [address] [id number] [address] [place] [address], [place] [address] October, [facility] [address] [id number] [address] [place] [address], [place] [address] October, [facility] [address] [id number] [address] [place] [address], [place] [address] October, [facility] [address] [id number] [address] [place] [address], [place] [address] October, [facility] [address] [id number] [address] [place] [address], [place] [address] October, [facility] [address] [id number] [address] [place] [address], [place] [address] October, [facility] [address] [id number] [address] [place] [address], [place] [address] October, [facility] [address] [id number] [address] [place] [address], [place] [address] October, [facility] [address] [id number] [address] [place] [address], [place] [address] October, [facility] [address] [id number] [address] [place] [address], [place] [address] Sep, [facility] [address] [id number] [facility] [place] [address] Sep, [facility] [address] [id number] [address] [place] [address], [place] [address] Sep, [facility] [address] [id number] [facility] [place] [address] Sep, [facility] [address] [id number] [address] [place] [address], [place] [address] Sep, [facility] [address] [id number] [address] [place] [address], [place] [address] Sep, [facility] [address] [id number] [address] [place] [address], [place] [address] Aug, [facility] [address] [id number] [address] [place] [address], [place] [address] Aug, [facility] [address] [id number] [address] [place] [address], [place] [address] Aug, [facility] [address] [id number] [address] [place] [address], [place] [address] Aug, [facility] [address] [id number] [address] [place] [address], [place] [address] Aug, [facility] [address] [id number] [address] [place] [address], [place] [address] Aug, [facility] [address] [id number] [address] [place] [address], [place] [address] Jul, [facility] [address] [id number] [address] [place] [address], [place] [address] Jul, [facility] [address] [id number] [address] [place] [address], [place] [address] Jul, [facility] [address] [id number] [address] [place] [address], [place] [address] Jul, [facility] [address] [id number] [address] [place] [address], [place] [address] 13 Jul, 2013 [facility] [address] [id number] [address] [place] [address], [place] [address] Jul, [facility] [address] [id number] [address] [place] [address], [place] [address] Jul, [facility] [address] [id number] [address] [place] [address], [place] [address] Jul, [facility] [address] [id number] [address] [place] [address], [place] [address] Jul, [facility] [address] [id number] [address] [place] [address], [place] [address] Jul, [facility] [address] [id number] [address] [place] [address], [place] [address] Jun, [facility] [address] [id number] [address] [place] [address], [place] [address] Jun, [facility] [address] [id number] [address] [place] [address], [place] [address] Jun, [facility] [address] [id number] [address] [place] [address], [place] [address] Jun, [facility] [address] [id number] [address] [place] [address], [place] [address] Jun, [facility] [address] [id number] [address] [place] [address], [place] [address] Jun, [facility] [address] [id number] [address] [place] [address], [place] [address] Jun, [facility] [address] [id number] [address] [place] [address], [place] [address] Jun, [facility] [address] [id number] [address] [place] [address], [place] [address] May, [facility] [address] [id number] [address] [place] [address], [place] [address] May, [facility] [address] [id number] [address] [place] [address], [place] [address] May, [facility] [address] [id number] [address] [place] [address], [place] [address] May, [facility] [address] [id number] [address] [place] [address], [place] [address] May, [facility] [address] [id number] [address] [place] [address], [place] [address] May, [facility] [address] [id number] [address] [place] [address], [place] [address] May, [facility] [address] [id number] [address] [place] [address], [place] [address] May, [facility] [address] [id number] [address] [place] [address], [place] [address] Apr, [facility] [address] [id number] [address] [place] [address] Apr, [facility] [address] [id number] [address] [place] [address], [place] [address] Apr, [facility] [address] [id number] [address] [place] [place] [address] Apr, [facility] [address] [id number] [address] [place] [place] [address] Apr, [facility] [address] [id number] [address] [place] [place] [address] Apr, [facility] [address] [id number] [address] [place] [address], [place] [address] Mar, [facility] [address] [id number] [address] [place] [id number] Mar, [facility] [address] [id number] [address] [place] [address], [place] [address] Mar, [facility] [address] [id number] [address] [place] [address], [place] [address] Mar, [facility] [address] [id number] [address] [place] [address], [place] [address] Mar, [facility] [address] [id number] [address] [place] [address], [place] [address] Mar, [facility] [address] [id number] [address] [place] [address], [place] [address] Mar, [facility] [address] [id number] [address] [place] [address], [place] [address] 30 Feb, 2012 [facility] [address] [id number] [address] [place] [address], [place] [address] 30 Feb, 2013 [facility] [address] [id number] [address] [place] [address], [place] [address] 27 Feb, 2013 [facility] [address] [id number] [address] [place] [address], [place] [address] Feb, 2012 [facility] [address] [id number] [address] [place] [address], [place] [address] Feb, [facility] [address] [id number] [address] [place] [address], [place] [address] Feb, [facility] [address] [id number] [address] [place] [address], [place] [address] Jan, [facility] [address] [id number] [address] [place] [address], [place] [address] Jan, [facility] [address] [id number] [address] [place] [address], [place] [address] Jan, [facility] [address] [id number] [address] [place] [address], [place] [address] Jan, [facility] [address] [id number] [address] [place] [address], [place] [address] Jan, [facility] [address] [id number] [address] [place] [address], [place] [address] Jan, [facility] [address] [id number] [address] [place] [address], [place] [address] Jan, [facility] [address] [id number] [address] [place] [address], [place] [address] Jan, [facility] [address] [id number] [address] [place] [address], [place] [address] Jan, [facility] [address] [id number] [address] [place] [address], [place] [address] Dec, [facility] [address] [id number] [address] [place] [address], [place] [address] Dec, [facility] [address] [id number] [address] [place] [address], [place] [address] Dec, [facility] [address] [id number] [address] [place] [address], [place] [address] Dec, [facility] [address] [id number] [address] [place] [address], [place] [address] Dec, [facility] [address] [id number] [address] [place] [address], [place] [address] Dec, [facility] [address] [id number] [address] [place] [address], [place] [address] Dec, [facility] [address] [id number] [address] [place] [address], [place] [address] Dec, [facility] [address] [id number] [address] [place] [address], [place] [address] Dec, [facility] [address] [id number] [address] [place] [address], [place] [address] Dec, [facility] [address] [id number] [address] [place] [address], [place] [address] Dec, [facility] [address] [id number] [address] [place] [address], [place] [address] Dec, [facility] [address] [id number] [address] [place] [address], [place] [address] Dec, [facility] [address] [id number] [address] [place] [address], [place] [address] Nov, [facility] [address] [id number] [address] [place] [address], [place] [address] Nov, [facility] [address] [id number] [address] [place] [address], [place] [address] Nov, [facility] [address] [id number] [address] [place] [address], [place] [address] Nov, [facility] [address] [id number] [address] [place] [address], [place] [address] October, [facility] [address] [id number] [address] [place] [address], [place] [address] October, [facility] [address] [id number] [address] [place] [address], [place] [address] October, [facility] [address] [id number] [address] [place] [address], [place] [address] October, [facility] [address] [id number] [address] [place] [address], [place] [address] October, [facility] [address] [id number] [address] [place] [address], [place] [address] October, [facility] [address] [id number] [address] [place] [address], [place] [address] Sep, [facility] [address] [id number] [address] [place] [address], [place] [address] Sep, [facility] [address] [id number] [address] [place] [address], [place] [address] Sep, [facility] [address] [id number] [address] [place] [address], [place] [address] Sep, [facility] [address] [id number] [address] [place] [address], [place] [address] Sep, [facility] [address] [id number] [facility] [place] [address] 16 Sep, 2012 [facility] [address] [id number] [address] [place] [address], [place] [address] 12 Sep, 2012 [facility] [address] [id number] [address] [place] [address], [place] [address] Sep, [facility] [address] [id number] [address] [place] [address], [place] [address] Sep, [facility] [address] [id number] [address] [place] [address], [place] [address] Sep, [facility] [address] [id number] [address] [place] [address], [place] [address] Sep, [facility] [address] [id number] [address] [place] [address], [place] [address] Aug, [facility] [address] [id number] [address] [place] [address], [place] [address] 25 Aug, 2012 [facility] [address] [id number] [address] [place] [address], [place] [address] 25 Aug, 2012 [facility] [address] [id number] [address] [place] [address], [place] [address] 21 Aug, 2012 [facility] [address] [id number] [address] [place] [address], [place] [address] 19 Aug, 2012 [facility] [address] [id number] [address] [place] [address], [place] [address] 18 Aug, 2012 [facility] [address] [id number] [address] [place] [address], [place] [address] 17 Aug, 2012 [facility] [address] [id number] [address] [place] [address], [place] [address] 15 Aug, 2012 [facility] [address] [id number] [address] [place] [address], [place] [address] 15 Aug, 2012 [facility] [address] [id number] [address] [place] [address], [place] [address] Aug, [facility] [address] [id number] [address] [place] [address], [place] [address] Aug, [facility] [address] [id number] [address] [place] [address], [place] [address] Aug, [facility] [address] [id number] [address] [place] [address], [place] [address] Jul, [facility] [address] [id number] [address] [place] [address], [place] [address] Jul, [facility] [address] [id number] [address] [place] [address], [place] [address] Jul, [facility] [address] [id number] [address] [place] [address], [place] [address] Jul, [facility] [address] [id number] [address] [place] [address], [place] [address] Jul, [facility] [address] [id number] [address] [place] [address], [place] [address] Jul, [facility] [address] [id number] [address] [place] [address], [place] [address] Jul, [facility] [address] [id number] [address] [place] [address], [place] [address] Jul, [facility] [address] [id number] [address] [place] [address], [place] [address] Jul, [facility] [address] [id number] [address] [place] [address], [place] [address] Jul, [facility] [address] [id number] [address] [place] [address], [place] [address] May, [facility] [address] [id number] [id number] May, [facility] [address] [id number] [address] [place] [address], [place] [address] May, [facility] [address] [id number] [address] [place] [place] [address] May, [facility] [address] [facility] [id number] [address] [place] [place] [address] May, [facility] [address] [facility] [id number] [address] [place] [place] [address] Apr, [facility] [address] [id number] [place] [id number] Apr, [facility] [address] [facility] [id number] [address] [place] [phone] Apr, [facility] [address] [facility] [id number] [address] [place] [phone] Mar, [facility] [address] [id number] [place] [id number] Mar, [facility] [address] [facility] [id number] [address] [place] [phone] Mar, [facility] [address] [id number] [place] [id number] Feb, [facility] [address] [facility] [id number] [address] [place] [phone] Feb, [facility] [address] [facility] [id number] [address] [place] [phone] Feb, [facility] [address] [id number] [place] [id number] Feb, [facility] [address] [id number] [place] [id number] Feb, [facility] [address] [id number] [place] [id number] Jan, [facility] [address] [id number] [address] [place] [address], [place] [phone] Jan, [facility] [address] [id number] [place] [id number] Jan, [facility] [address] [id number] [place] [id number] Jan, [facility] [address] [id number] [place] [id number] Jan, [facility] [address] [facility] [id number] [address] [place] [address], [place] [phone] Jan, [facility] [address] [facility] [id number] [address] [place] [address], [place] [phone] Jan, [facility] [address] [facility] [id number] [address] [place] [address], [place] [id number] Aug, [facility] [address] [id number] [place] [id number] Aug, [facility] [address] [facility] [id number] [address] [place] [address], [place] [phone] Jul, [facility] [address] [facility] [id number] [address] [place] [address], [place] [id number] Jul, [facility] [address] [facility] [id number] [address] [place] [address], [place] [phone] Jul, [facility] [address] [id number] [place] [id number] Jul, [facility] [address] [facility] [id number] [address] [place] [address], [place] [id number] Jul, [facility] [address] [id number] [place] [id number] Jul, [facility] [address] [facility] [id number] [address] [place] [address], [place] [id number] Jul, [facility] [address] [id number] [place] [id number] Jul, [facility] [address] [id number] [place] [id number] Jul, [facility] [address] [id number] [place] [id number] Jul, [facility] [address] [facility] [id number] [address] [place] [address], [place] [address] May, [facility] [address] [id number] [address] [place] [id number] May, [facility] [address] [id number] [address] [place] [id number] May, [facility] [address] [id number] [address] [place] [phone] Apr, [facility] [address] [id number] [address] [place] [phone] Jan, [facility] [address] [id number] [address] [place] [phone] Jan, [facility] [address] [id number] [address] [place] [phone] Dec, [facility] [address] [id number] [address] [place] [phone] Dec, [facility] [address] [id number] [address] [place] [phone] May, [facility] [address] [id number] [address] [place] [phone] Mar, [facility] [address] [id number] [address] [place] [phone] Mar, [facility] [address] [id number] [address] [place] [phone] Jan, IMMUNIZATIONS No Known Immunizations SOCIAL HISTORY [...] Surgical History removal of choriocarcinoma by Drake awng 08/2009 Surgical History hysterectomy 06/2012
--- OUTSIDE RECORDS SUMMARY | 2020-01-28 12:51 | XMS REPORT ---
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 Active 007828749 Problem History of venous thromboembolism V12.51 Active 805317702 Problem Cellulitis of unspecified part of limb L03.119 Active 060537398 Problem Gastroesophageal reflux disease without esophagitis K21.9 Active 361680330 Problem History of pulmonary embolism Z86.711 Active 152906345 Problem Pseudotumor cerebri G93.2 Active 23491150 Problem History of DVT (deep vein thrombosis) Z86.718 Active 706239215 ALLERGIES No Information ENCOUNTERS Encounter Location Date Diagnosis [place] [id number] [facility] [id number] [address] [place] [address] Apr, residential (current) use of 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 Z79.01 [facility] [address] [facility] [id number] [address] [place] [address] Apr, residential 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.01 [facility] [address] [facility] [id number] [address] [place] [address] Apr, Cellulitis of unspecified pa rt of limb L03.119 ; Allergic contact dermatitis due to adhesives L23.1 and Chronic pain syndrome G89.4 [facility] [address] [facility] [id number] [address] [place] [address] Apr, [place] [address] [place] [id number] [address] [place] [address] Apr, 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.01 ; Cellulitis of unspecified part of limb L03.119 ; Chronic pain syndrome G89.4 and Anxiety F41.9 [facility] [address] [place] [id number] [address] [place] [address] 16 Apr, 2015 [facility] [address] [place] [id number] [place] [address] Apr, [place] [address] [place] [id number] [place] [address] Mar, [place] [address] [address] Mar, [place] [address] [address] Mar, Sore throat J02.9 ; Gastroes ophageal reflux disease without esophagitis K21.9 ; Pseudotumor cerebri G93.2 ; Chronic pain syndrome G89.4 ; Choriocarcinoma C58 ; History of pulmonary embolism Z86.711 ; History of DVT (deep vein thrombosis) Z86.718 ; Anxiety F41.9 and Tachycardia R00.0 [place] [address] [address] Feb, Anxiety 300.00 and Chronic p ain 338.29 [place] [address] [place] [id number] [address] [place] [address] Feb, [place] [address] [place] [id number] [address] [place] [address] Feb, [place] [address] [address] Jan, 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 use of ant icoagulant therapy V58.61 and Dysuria 788.1 [place] [address] [place] [id number] [place] [address] Jan, Dysuria 788.1 [facility] [address] [place] [id number] [address] [place] [address] Jan, Anxiety 300.00 and Chronic p ain 338.29 [facility] [address] [place] [id number] [place] [address] Jan, [facility] [address] [address] Jan, [facility] [address] [address] Jan, [place] [address] [address] Dec, Weakness 780.79 [place] [address] [address] Dec, residential current use of ant icoagulant therapy V58.61 [place] [address] [address] Dec, Palpitations 785.1 ; Tremor 781.0 ; Weakness 780.79 ; residential current use of anticoagulant therapy V58.61 and Yeast vaginitis 112.1 [place] [address] [place] [id number] [address] [place] [address] Dec, [place] [address] [address] Dec, Cervicalgia 723.1 ; Tachycar yoseph 785.0 ; Pseudotumor cerebri 348.2 and History of venous thromboembolism V12.51 [place] [address] [address] Nov, [place] [address] [address] Nov, [place] [address] [address] Nov, Tachycardia 785.0 ; Pseudotu mor cerebri 348.2 ; Anxiety 300.00 and History of venous thromboembolism V12.51 [facility] [address] [id number] [address] [place] [address] Nov, [facility] [address] [id number] [address] [place] [address] 18 Nov, 2014 [facility] [address] [id number] [address] [place] [address] Nov, [facility] [address] [id number] [address] [place] [address] Nov, [facility] [address] [facility] [id number] [address] [place] [address] Nov, [facility] [address] [facility] [id number] [address] [place] [address] Nov, [facility] [address] [facility] [id number] [address] [place] [address] Nov, [facility] [address] [facility] [id number] [address] [place] [address] October, [facility] [address] [facility] [id number] [address] [place] [address] October, [facility] [address] [place] [id number] [address] [place] [address] October, Pain in thoracic spine 724.1 and Tachycardia 785.0 [facility] [address] [id number] [address] [place] [address] October, [facility] [address] [id number] [address] [place] [address] October, [facility] [address] [facility] [id number] [address] [place] [address] 14 Sep, 2014 [facility] [address] [facility] [id number] [address] [place] [address] Sep, [facility] [address] [id number] [facility] [place] [address] Aug, [facility] [address] [id number] [address] [place] [address], [place] [address] Aug, [facility] [address] [id number] [address] [place] [address], [place] [address] Aug, [facility] [address] [id number] [address] [place] [address], [place] [address] Aug, [facility] [address] [id number] [address] [place] [address], [place] [address] Aug, [facility] [address] [id number] [address] [place] [address], [place] [address] Aug, [facility] [address] [id number] [address] [place] [address], [place] [address] Aug, [facility] [address] [id number] [address] [place] [address], [place] [address] Aug, [facility] [address] [id number] [address] [place] [address], [place] [address] Aug, [facility] [address] [id number] [address] [place] [address], [place] [address] Aug, [facility] [address] [id number] [address] [place] [address], [place] [address] Aug, [facility] [address] [id number] [address] [place] [address], [place] [address] Aug, 2014 [facility] [address] [id number] [address] [place] [address], [place] [address] Jul, [facility] [address] [id number] [address] [place] [address], [place] [address] Jul, [facility] [address] [id number] [address] [place] [address], [place] [address] Jul, [facility] [address] [id number] [address] [place] [address], [place] [address] Jul, [facility] [address] [id number] [address] [place] [address], [place] [address] 23 Jul, 2014 [facility] [address] [id number] [address] [place] [address], [place] [address] 23 Jul, 2014 [facility] [address] [id number] [address] [place] [address], [place] [address] 23 Jul, 2014 [facility] [address] [id number] [address] [place] [address], [place] [address] 23 Jul, 2014 [facility] [address] [id number] [address] [place] [address], [place] [address] 20 Jul, 2014 [facility] [address] [id number] [address] [place] [address], [place] [address] 20 Jul, 2014 [facility] [address] [id number] [address] [place] [address], [place] [address] 19 Jul, 2014 [facility] [address] [id number] [address] [place] [address], [place] [address] 19 Jul, 2014 [facility] [address] [id number] [address] [place] [address], [place] [address] 17 Jul, 2014 [facility] [address] [id number] [address] [place] [address], [place] [address] 17 Jul, 2014 [facility] [address] [id number] [address] [place] [address], [place] [address] 16 Jul, 2014 [facility] [address] [id number] [address] [place] [address], [place] [address] 16 Jul, 2014 [facility] [address] [id number] [address] [place] [address], [place] [address] 16 Jul, 2014 [facility] [address] [id number] [address] [place] [address] 16 Jul, 2014 [facility] [address] [id number] [address] [place] [address] 13 Jul, 2014 [facility] [address] [id number] [address] [place] [address], [place] [address] Jul, [facility] [address] [id number] [address] [place] [address], [place] [address] Jul, [facility] [address] [id number] [address] [place] [address], [place] [address] Jul, 2014 [facility] [address] [id number] [address] [place] [address], [place] [address] Jul, 2014 [facility] [address] [id number] [address] [place] [address], [place] [address] Jul, [facility] [address] [id number] [address] [place] [address], [place] [address] Jul, [facility] [address] [id number] [address] [place] [address], [place] [address] Jul, [facility] [address] [id number] [address] [place] [address], [place] [address] Jul, [facility] [address] [id number] [address] [place] [address], [place] [address] Jul, [facility] [address] [id number] [address] [place] [address], [place] [address] Jul, [facility] [address] [id number] [address] [place] [address], [place] [address] Jul, [facility] [address] [id number] [address] [place] [address], [place] [address] Jun, [facility] [address] [id number] [address] [place] [address], [place] [address] Jun, [facility] [address] [id number] [address] [place] [address], [place] [address] Jun, [facility] [address] [id number] [address] [place] [address], [place] [address] Jun, [facility] [address] [id number] [address] [place] [address], [place] [address] Jun, [facility] [address] [id number] [address] [place] [address], [place] [address] Jun, [facility] [address] [id number] [address] [place] [address], [place] [address] Jun, [facility] [address] [id number] [address] [place] [address], [place] [address] Jun, [facility] [address] [id number] [address] [place] [address], [place] [address] Jun, [facility] [address] [id number] [address] [place] [address], [place] [address] Jun, [facility] [address] [id number] [address] [place] [address], [place] [address] Jun, [facility] [address] [id number] [address] [place] [address], [place] [address] Jun, [facility] [address] [id number] [address] [place] [address], [place] [address] Jun, [facility] [address] [id number] [address] [place] [address], [place] [address] Jun, [facility] [address] [id number] [address] [place] [address], [place] [address] Jun, [facility] [address] [id number] [address] [place] [address], [place] [address] Jun, [facility] [address] [id number] [address] [place] [address], [place] [address] Jun, [facility] [address] [id number] [address] [place] [address], [place] [address] Jun, [facility] [address] [id number] [address] [place] [address], [place] [address] Jun, [facility] [address] [id number] [address] [place] [address], [place] [address] Jun, [facility] [address] [id number] [address] [place] [address], [place] [address] May, [facility] [address] [id number] [address] [place] [address], [place] [address] May, [facility] [address] [id number] [address] [place] [address], [place] [address] May, [facility] [address] [id number] [address] [place] [address], [place] [address] May, [facility] [address] [id number] [address] [place] [address], [place] [address] May, [facility] [address] [id number] [address] [place] [address], [place] [address] May, [facility] [address] [id number] [address] [place] [address], [place] [address] May, [facility] [address] [id number] [address] [place] [address], [place] [address] May, [facility] [address] [id number] [address] [place] [address], [place] [address] May, [facility] [address] [id number] [address] [place] [address], [place] [address] May, [facility] [address] [id number] [address] [place] [address], [place] [address] May, [facility] [address] [id number] [address] [place] [address], [place] [address] 18 May, 2014 [facility] [address] [id number] [address] [place] [address], [place] [address] 18 May, 2014 [facility] [address] [id number] [address] [place] [address], [place] [address] 17 May, 2014 [facility] [address] [id number] [address] [place] [address], [place] [address] 16 May, 2014 [facility] [address] [id number] [address] [place] [address], [place] [address] 16 May, 2014 [facility] [address] [id number] [address] [place] [address], [place] [address] 15 May, 2014 [facility] [address] [id number] [address] [place] [address], [place] [address] 15 May, 2014 [facility] [address] [id number] [address] [place] [address], [place] [address] May, [facility] [address] [id number] [address] [place] [address], [place] [address] May, [facility] [address] [id number] [address] [place] [address], [place] [address] May, [facility] [address] [id number] [address] [place] [address], [place] [address] May, [facility] [address] [id number] [address] [place] [address], [place] [address] May, [facility] [address] [id number] [address] [place] [address], [place] [address] May, [facility] [address] [id number] [address] [place] [address], [place] [address] May, [facility] [address] [id number] [address] [place] [address], [place] [address] May, [facility] [address] [id number] [address] [place] [address], [place] [address] May, [facility] [address] [id number] [address] [place] [address], [place] [address] May, [facility] [address] [id number] [address] [place] [address], [place] [address] May, [facility] [address] [id number] [address] [place] [address], [place] [address] May, [facility] [address] [id number] [address] [place] [address], [place] [address] May, [facility] [address] [id number] [address] [place] [address], [place] [address] May, [facility] [address] [id number] [address] [place] [address], [place] [address] May, [facility] [address] [id number] [address] [place] [address], [place] [address] May, [facility] [address] [id number] [address] [place] [address], [place] [address] Apr, [facility] [address] [id number] [address] [place] [address], [place] [address] Apr, [facility] [address] [id number] [address] [place] [address], [place] [address] Apr, [facility] [address] [id number] [address] [place] [address], [place] [address] Apr, [facility] [address] [id number] [address] [place] [address], [place] [address] Apr, [facility] [address] [id number] [address] [place] [address], [place] [address] Apr, [facility] [address] [id number] [address] [place] [address], [place] [address] Apr, [facility] [address] [id number] [address] [place] [address], [place] [address] Apr, [facility] [address] [id number] [address] [place] [address], [place] [address] Apr, [facility] [address] [id number] [address] [place] [address], [place] [address] Apr, [facility] [address] [id number] [address] [place] [address], [place] [address] Mar, [facility] [address] [id number] [address] [place] [address], [place] [address] Mar, [facility] [address] [id number] [address] [place] [address] [address] Mar, [facility] [address] [id number] [address] [place] [address], [place] [address] 31 Mar, 2013 [facility] [address] [id number] [address] [place] [address], [place] [address] Mar, [facility] [address] [id number] [address] [place] [address], [place] [address] 30 Mar, 2014 [facility] [address] [id number] [address] [place] [address], [place] [address] Mar, [facility] [address] [id number] [address] [place] [address], [place] [address] Mar, [facility] [address] [id number] [address] [place] [address], [place] [address] Mar, [facility] [address] [id number] [address] [place] [address], [place] [address] Mar, [facility] [address] [id number] [address] [place] [address] Mar, [facility] [address] [id number] [address] [place] [address] Mar, [facility] [address] [id number] [address] [place] [address] Mar, [facility] [address] [id number] [address] [place] [address] Mar, 2013 [facility] [address] [id number] [address] [place] [address] Mar, 2013 [facility] [address] [id number] [address] [place] [address] Mar, [facility] [address] [id number] [address] [place] [address] Mar, [facility] [address] [id number] [address] [place] [address] Mar, 2013 [facility] [address] [id number] [address] [place] [address], [place] [address] 02 Mar, 2013 [facility] [address] [id number] [address] [place] [address], [place] [address] 02 Mar, 2013 [facility] [address] [id number] [address] [place] [address], [place] [address] 05 Sep, 2013 [facility] [address] [id number] [address] [place] [address], [place] [address] 05 Sep, 2013 [facility] [address] [id number] [address] [place] [address], [place] [address] 04 Sep, 2013 [facility] [address] [id number] [address] [place] [address], [place] [address] 04 Sep, 2013 [facility] [address] [id number] [address] [place] [address], [place] [address] 03 Feb, 2013 [facility] [address] [id number] [address] [place] [address], [place] [address] 03 Feb, 2013 [facility] [address] [id number] [address] [place] [address], [place] [address] 02 Feb, 2013 [facility] [address] [id number] [address] [place] [address], [place] [address] Feb, 2013 [facility] [address] [id number] [address] [place] [address], [place] [address] 02 Feb, 2013 [facility] [address] [id number] [address] [place] [address], [place] [address] Feb, 2013 [facility] [address] [id number] [address] [place] [address], [place] [address] Jan, [facility] [address] [id number] [address] [place] [address], [place] [address] Jan, [facility] [address] [id number] [address] [place] [address], [place] [address] Jan, [facility] [address] [id number] [address] [place] [address], [place] [address] Jan, [facility] [address] [id number] [facility] [place] [address] Jan, [facility] [address] [id number] [address] [place] [address], [place] [address] Jan, [facility] [address] [id number] [address] [place] [address], [place] [address] Jan, [facility] [address] [id number] [address] [place] [address], [place] [address] Jan, [facility] [address] [id number] [address] [place] [address], [place] [address] Jan, [facility] [address] [id number] [address] [place] [address], [place] [address] Jan, [facility] [address] [id number] [address] [place] [address], [place] [address] Jan, [facility] [address] [id number] [address] [place] [address], [place] [address] Jan, [facility] [address] [id number] [address] [place] [address], [place] [address] Dec, [facility] [address] [id number] [address] [place] [address], [place] [address] Dec, [facility] [address] [id number] [address] [place] [address], [place] [address] Dec, [facility] [address] [id number] [address] [place] [address], [place] [address] Dec, [facility] [address] [id number] [address] [place] [address], [place] [address] Dec, [facility] [address] [id number] [address] [place] [address], [place] [address] Dec, [facility] [address] [id number] [address] [place] [address], [place] [address] Dec, [facility] [address] [id number] [address] [place] [address], [place] [address] Dec, [facility] [address] [id number] [facility] [place] [address] Dec, [facility] [address] [id number] [address] [place] [address], [place] [address] Dec, [facility] [address] [id number] [address] [place] [address], [place] [address] Dec, [facility] [address] [id number] [address] [place] [address], [place] [address] Dec, [facility] [address] [id number] [address] [place] [address], [place] [address] Nov, [facility] [address] [id number] [address] [place] [address], [place] [address] Nov, [facility] [address] [id number] [address] [place] [address], [place] [address] Nov, [facility] [address] [id number] [address] [place] [address], [place] [address] Nov, [facility] [address] [id number] [address] [place] [address], [place] [address] Nov, [facility] [address] [id number] [address] [place] [address], [place] [address] Nov, [facility] [address] [id number] [address] [place] [address], [place] [address] Nov, [facility] [address] [id number] [address] [place] [address], [place] [address] Nov, [facility] [address] [id number] [address] [place] [address], [place] [address] Nov, [facility] [address] [id number] [address] [place] [address], [place] [address] Nov, [facility] [address] [id number] [address] [place] [address], [place] [address] Nov, [facility] [address] [id number] [facility] [place] [address] Nov, [facility] [address] [id number] [address] [place] [address], [place] [address] Nov, [facility] [address] [id number] [address] [place] [address], [place] [address] Nov, [facility] [address] [id number] [address] [place] [address], [place] [address] October, [facility] [address] [id number] [address] [place] [address], [place] [address] October, [facility] [address] [id number] [address] [place] [address], [place] [address] October, [facility] [address] [id number] [address] [place] [address], [place] [address] October, [facility] [address] [id number] [address] [place] [address], [place] [address] October, [facility] [address] [id number] [address] [place] [address], [place] [address] October, [facility] [address] [id number] [address] [place] [address], [place] [address] October, [facility] [address] [id number] [address] [place] [address], [place] [address] October, [facility] [address] [id number] [address] [place] [address], [place] [address] October, [facility] [address] [id number] [address] [place] [address], [place] [address] October, [facility] [address] [id number] [address] [place] [address], [place] [address] October, [facility] [address] [id number] [address] [place] [address], [place] [address] October, [facility] [address] [id number] [address] [place] [address], [place] [address] Sep, [facility] [address] [id number] [facility] [place] [address] Sep, [facility] [address] [id number] [address] [place] [address], [place] [address] Sep, [facility] [address] [id number] [facility] [place] [address] Sep, [facility] [address] [id number] [address] [place] [address], [place] [address] Sep, [facility] [address] [id number] [address] [place] [address], [place] [address] Sep, [facility] [address] [id number] [address] [place] [address], [place] [address] Aug, [facility] [address] [id number] [address] [place] [address], [place] [address] Aug, [facility] [address] [id number] [address] [place] [address], [place] [address] Aug, [facility] [address] [id number] [address] [place] [address], [place] [address] Aug, [facility] [address] [id number] [address] [place] [address], [place] [address] Aug, [facility] [address] [id number] [address] [place] [address], [place] [address] Aug, [facility] [address] [id number] [address] [place] [address], [place] [address] Jul, [facility] [address] [id number] [address] [place] [address], [place] [address] Jul, [facility] [address] [id number] [address] [place] [address], [place] [address] Jul, [facility] [address] [id number] [address] [place] [address], [place] [address] Jul, [facility] [address] [id number] [address] [place] [address], [place] [address] 13 Jul, 2013 [facility] [address] [id number] [address] [place] [address], [place] [address] Jul, [facility] [address] [id number] [address] [place] [address], [place] [address] Jul, [facility] [address] [id number] [address] [place] [address], [place] [address] Jul, [facility] [address] [id number] [address] [place] [address], [place] [address] Jul, [facility] [address] [id number] [address] [place] [address], [place] [address] Jul, [facility] [address] [id number] [address] [place] [address], [place] [address] Jun, [facility] [address] [id number] [address] [place] [address], [place] [address] Jun, [facility] [address] [id number] [address] [place] [address], [place] [address] Jun, [facility] [address] [id number] [address] [place] [address], [place] [address] Jun, [facility] [address] [id number] [address] [place] [address], [place] [address] Jun, [facility] [address] [id number] [address] [place] [address], [place] [address] Jun, [facility] [address] [id number] [address] [place] [address], [place] [address] Jun, [facility] [address] [id number] [address] [place] [address], [place] [address] Jun, [facility] [address] [id number] [address] [place] [address], [place] [address] May, [facility] [address] [id number] [address] [place] [address], [place] [address] May, [facility] [address] [id number] [address] [place] [address], [place] [address] May, [facility] [address] [id number] [address] [place] [address], [place] [address] May, [facility] [address] [id number] [address] [place] [address], [place] [address] May, [facility] [address] [id number] [address] [place] [address], [place] [address] May, [facility] [address] [id number] [address] [place] [address], [place] [address] May, [facility] [address] [id number] [address] [place] [address], [place] [address] May, [facility] [address] [id number] [address] [place] [address], [place] [address] Apr, [facility] [address] [id number] [address] [place] [address] Apr, [facility] [address] [id number] [address] [place] [address], [place] [address] Apr, [facility] [address] [id number] [address] [place] [address] Apr, [facility] [address] [id number] [address] [place] [address] Apr, [facility] [address] [id number] [address] [place] [address] Apr, [facility] [address] [id number] [address] [place] [address], [place] [address] Mar, [facility] [address] [id number] [address] [place] [address] Mar, [facility] [address] [id number] [address] [place] [address], [place] [address] Mar, [facility] [address] [id number] [address] [place] [address], [place] [address] Mar, [facility] [address] [id number] [address] [place] [address], [place] [address] Mar, [facility] [address] [id number] [address] [place] [address], [place] [address] Mar, [facility] [address] [id number] [address] [place] [address], [place] [address] Mar, [facility] [address] [id number] [address] [place] [address], [place] [address] 30 Feb, 2012 [facility] [address] [id number] [address] [place] [address], [place] [address] 30 Feb, 2013 [facility] [address] [id number] [address] [place] [address], [place] [address] 27 Feb, 2013 [facility] [address] [id number] [address] [place] [address], [place] [address] Feb, 2012 [facility] [address] [id number] [address] [place] [address], [place] [address] Feb, [facility] [address] [id number] [address] [place] [address], [place] [address] Feb, [facility] [address] [id number] [address] [place] [address], [place] [address] Jan, [facility] [address] [id number] [address] [place] [address], [place] [address] Jan, [facility] [address] [id number] [address] [place] [address], [place] [address] Jan, [facility] [address] [id number] [address] [place] [address], [place] [address] Jan, [facility] [address] [id number] [address] [place] [address], [place] [address] Jan, [facility] [address] [id number] [address] [place] [address], [place] [address] Jan, [facility] [address] [id number] [address] [place] [address], [place] [address] Jan, [facility] [address] [id number] [address] [place] [address], [place] [address] Jan, [facility] [address] [id number] [address] [place] [address], [place] [address] Jan, [facility] [address] [id number] [address] [place] [address], [place] [address] Dec, [facility] [address] [id number] [address] [place] [address], [place] [address] Dec, [facility] [address] [id number] [address] [place] [address], [place] [address] Dec, [facility] [address] [id number] [address] [place] [address], [place] [address] Dec, [facility] [address] [id number] [address] [place] [address], [place] [address] Dec, [facility] [address] [id number] [address] [place] [address], [place] [address] Dec, [facility] [address] [id number] [address] [place] [address], [place] [address] Dec, [facility] [address] [id number] [address] [place] [address], [place] [address] Dec, [facility] [address] [id number] [address] [place] [address], [place] [address] Dec, [facility] [address] [id number] [address] [place] [address], [place] [address] Dec, [facility] [address] [id number] [address] [place] [address], [place] [address] Dec, [facility] [address] [id number] [address] [place] [address], [place] [address] Dec, [facility] [address] [id number] [address] [place] [address], [place] [address] Dec, [facility] [address] [id number] [address] [place] [address], [place] [address] Nov, [facility] [address] [id number] [address] [place] [address], [place] [address] Nov, [facility] [address] [id number] [address] [place] [address], [place] [address] Nov, [facility] [address] [id number] [address] [place] [address], [place] [address] Nov, [facility] [address] [id number] [address] [place] [address], [place] [address] October, [facility] [address] [id number] [address] [place] [address], [place] [address] October, [facility] [address] [id number] [address] [place] [address], [place] [address] October, [facility] [address] [id number] [address] [place] [address], [place] [address] October, [facility] [address] [id number] [address] [place] [address], [place] [address] October, [facility] [address] [id number] [address] [place] [address], [place] [address] October, [facility] [address] [id number] [address] [place] [address], [place] [address] Sep, [facility] [address] [id number] [address] [place] [address], [place] [address] Sep, [facility] [address] [id number] [address] [place] [address], [place] [address] Sep, [facility] [address] [id number] [address] [place] [address], [place] [address] Sep, [facility] [address] [id number] [address] [place] [address], [place] [address] Sep, [facility] [address] [id number] [facility] [place] [address] 16 Sep, 2012 [facility] [address] [id number] [address] [place] [address], [place] [address] 12 Sep, 2012 [facility] [address] [id number] [address] [place] [address], [place] [address] Sep, [facility] [address] [id number] [address] [place] [address], [place] [address] Sep, [facility] [address] [id number] [address] [place] [address], [place] [address] Sep, [facility] [address] [id number] [address] [place] [address], [place] [address] Sep, [facility] [address] [id number] [address] [place] [address], [place] [address] Aug, [facility] [address] [id number] [address] [place] [address], [place] [address] 25 Aug, 2012 [facility] [address] [id number] [address] [place] [address], [place] [address] 25 Aug, 2012 [facility] [address] [id number] [address] [place] [address], [place] [address] 21 Aug, 2012 [facility] [address] [id number] [address] [place] [address], [place] [address] 19 Aug, 2012 [facility] [address] [id number] [address] [place] [address], [place] [address] 18 Aug, 2012 [facility] [address] [id number] [address] [place] [address], [place] [address] 17 Aug, 2012 [facility] [address] [id number] [address] [place] [address], [place] [address] 15 Aug, 2012 [facility] [address] [id number] [address] [place] [address], [place] [address] 15 Aug, 2012 [facility] [address] [id number] [address] [place] [address], [place] [address] Aug, [facility] [address] [id number] [address] [place] [address], [place] [address] Aug, [facility] [address] [id number] [address] [place] [address], [place] [address] Aug, [facility] [address] [id number] [address] [place] [address], [place] [address] Jul, [facility] [address] [id number] [address] [place] [address], [place] [address] Jul, [facility] [address] [id number] [address] [place] [address], [place] [address] Jul, [facility] [address] [id number] [address] [place] [address], [place] [address] Jul, [facility] [address] [id number] [address] [place] [address], [place] [address] Jul, [facility] [address] [id number] [address] [place] [address], [place] [address] Jul, [facility] [address] [id number] [address] [place] [address], [place] [address] Jul, [facility] [address] [id number] [address] [place] [address], [place] [address] Jul, [facility] [address] [id number] [address] [place] [address], [place] [address] Jul, [facility] [address] [id number] [address] [place] [address], [place] [address] Jul, [facility] [address] [id number] [address] [place] [address], [place] [address] May, [facility] [address] [id number] [id number] May, [facility] [address] [id number] [address] [place] [address], [place] [address] May, [facility] [address] [id number] [address] [place] [address] May, [facility] [address] [facility] [id number] [address] [place] [address] May, [facility] [address] [facility] [id number] [address] [place] [address] Apr, [facility] [address] [id number] [place] [id number] Apr, [facility] [address] [facility] [id number] [address] [place] [id number] Apr, [facility] [address] [facility] [id number] [address] [place] [id number] Mar, [facility] [address] [id number] [place] [id number] Mar, [facility] [address] [facility] [id number] [address] [place] [id number] Mar, [facility] [address] [id number] [place] [id number] Feb, [facility] [address] [facility] [id number] [address] [place] [id number] Feb, [facility] [address] [facility] [id number] [address] [place] [id number] Feb, [facility] [place] [address] [id number] [place] [id number] Feb, [facility] [place] [address] [id number] [place] [id number] Feb, [facility] [address] [id number] [place] [id number] Jan, [facility] [address] [id number] [address] [place] [address], [place] [address] Jan, [facility] [place] [address] [id number] [place] [id number] Jan, [facility] [address] [id number] [place] [id number] Jan, [facility] [address] [id number] [place] [id number] Jan, [facility] [address] [facility] [id number] [address] [place] [address], [place] [address] Jan, [facility] [address] [facility] [id number] [address] [place] [address], [place] [address] Jan, [facility] [address] [facility] [id number] [address] [place] [address], [place] [address] Aug, [facility] [place] [address] [id number] [place] [id number] Aug, [facility] [address] [facility] [id number] [address] [place] [address], [place] [address] Jul, [facility] [address] [facility] [id number] [address] [place] [address], [place] [address] Jul, [facility] [address] [facility] [id number] [address] [place] [address], [place] [address] Jul, [facility] [place] [address] [id number] [place] [id number] Jul, [facility] [address] [facility] [id number] [address] [place] [address], [place] [address] Jul, [facility] [place] [address] [id number] [place] [id number] Jul, [facility] [address] [facility] [id number] [address] [place] [address], [place] [address] Jul, [facility] [place] [address] [id number] [place] [id number] Jul, [facility] [place] [address] [id number] [place] [id number] Jul, [facility] [place] [address] [id number] [place] [id number] Jul, [facility] [address] [facility] [id number] [address] [place] [address], [place] [address] May, [facility] [address] [id number] [address] [place] [id number] May, [facility] [address] [id number] [address] [place] [id number] May, [facility] [address] [id number] [address] [place] [id number] Apr, [facility] [address] [id number] [address] [place] [id number] Jan, [facility] [address] [id number] [address] [place] [id number] Jan, [facility] [address] [id number] [address] [place] [id number] Dec, [facility] [address] [id number] [address] [place] [id number] Dec, [facility] [address] [id number] [address] [place] [id number] May, [facility] [address] [id number] [address] [place] [id number] Mar, [facility] [address] [id number] [address] [place] [id number] Mar, [facility] [address] [id number] [address] [place] [id number] Jan, IMMUNIZATIONS No Known Immunizations SOCIAL HISTORY [...]
--- OUTSIDE RECORDS SUMMARY | 2020-01-28 12:51 | XMS REPORT ---
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 544775235 Problem History of venous thromboembolism V12.51 Active 100106797 Problem Cellulitis of unspecified part of limb L03.119 Active 273439466 Problem Gastroesophageal reflux disease without esophagitis K21.9 Active 310564038 Problem History of pulmonary embolism Z86.711 Active 320561795 Problem Pseudotumor cerebri G93.2 Active 01606513 Problem History of DVT (deep vein thrombosis) Z86.718 Active 412972518 ALLERGIES No Information ENCOUNTERS Encounter Location Date Diagnosis [place] [address] [facility] [id number] [address] [place] [id number] Apr, jail (current) use of 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 Z79.01 [facility] [address] [facility] [id number] [address] [place] [address] Apr, jail 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.01 [facility] [address] [facility] [id number] [address] [place] [address] Apr, Cellulitis of unspecified pa rt of limb L03.119 ; Allergic contact dermatitis due to adhesives L23.1 and Chronic pain syndrome G89.4 [facility] [address] [facility] [id number] [address] [place] [address] Apr, [place] [address] [place] [id number] [address] [place] [address] Apr, 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 ; Cellulitis of unspecified part of limb L03.119 ; Chronic pain syndrome G89.4 and Anxiety F41.9 [facility] [address] [place] [id number] [address] [place] [address] 16 Apr, 2015 [facility] [address] [place] [id number] [place] [address] Apr, [place] [address] [place] [id number] [place] [address] Mar, [place] [address] [address] Mar, [place] [address] [address] Mar, Sore throat J02.9 ; Gastroes ophageal reflux disease without esophagitis K21.9 ; Pseudotumor cerebri G93.2 ; Chronic pain syndrome G89.4 ; Choriocarcinoma C58 ; History of pulmonary embolism Z86.711 ; History of DVT (deep vein thrombosis) Z86.718 ; Anxiety F41.9 and Tachycardia R00.0 [place] [address] [address] Feb, Anxiety 300.00 and Chronic p ain 338.29 [place] [address] [place] [id number] [address] [place] [address] Feb, [place] [address] [place] [id number] [address] [place] [address] Feb, [place] [address] [address] Jan, 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.61 and Dysuria 788.1 [place] [address] [place] [id number] [place] [address] Jan, Dysuria 788.1 [facility] [address] [place] [id number] [address] [place] [address] Jan, Anxiety 300.00 and Chronic p ain 338.29 [facility] [address] [place] [id number] [place] [address] Jan, [facility] [address] [address] Jan, [facility] [address] [address] Jan, [place] [address] [address] Dec, Weakness 780.79 [place] [address] [address] Dec, jail current use of ant icoagulant therapy V58.61 [place] [address] [address] Dec, Palpitations 785.1 ; Tremor 781.0 ; Weakness 780.79 ; jail current use of anticoagulant therapy V58.61 and Yeast vaginitis 112.1 [place] [address] [place] [id number] [address] [place] [address] Dec, [place] [address] [address] Dec, Cervicalgia 723.1 ; Tachycar yoseph 785.0 ; Pseudotumor cerebri 348.2 and History of venous thromboembolism V12.51 [place] [address] [address] Nov, [place] [address] [address] Nov, [place] [address] [address] Nov, Tachycardia 785.0 ; Pseudotu mor cerebri 348.2 ; Anxiety 300.00 and History of venous thromboembolism V12.51 [facility] [address] [id number] [address] [place] [address] Nov, [facility] [address] [id number] [address] [place] [address] 18 Nov, 2014 [facility] [address] [id number] [address] [place] [address] Nov, [facility] [address] [id number] [address] [place] [address] Nov, [facility] [address] [facility] [id number] [address] [place] [address] Nov, [facility] [address] [facility] [id number] [address] [place] [address] Nov, [facility] [address] [facility] [id number] [address] [place] [address] Nov, [facility] [address] [facility] [id number] [address] [place] [address] October, [facility] [address] [facility] [id number] [address] [place] [address] October, [facility] [address] [place] [id number] [address] [place] [address] October, Pain in thoracic spine 724.1 and Tachycardia 785.0 [facility] [address] [id number] [address] [place] [address] October, [facility] [address] [id number] [address] [place] [address] October, [facility] [address] [facility] [id number] [address] [place] [address] 14 Sep, 2014 [facility] [address] [facility] [id number] [address] [place] [address] Sep, [facility] [address] [id number] [facility] [address] Aug, [facility] [address] [id number] [address] [place] [address], [place] [address] Aug, [facility] [address] [id number] [address] [place] [address], [place] [address] Aug, [facility] [address] [id number] [address] [place] [address], [place] [id number] Aug, [facility] [address] [id number] [address] [place] [address], [place] [address] Aug, [facility] [address] [id number] [address] [place] [address], [place] [address] Aug, [facility] [address] [id number] [address] [place] [address], [place] [address] Aug, [facility] [address] [id number] [address] [place] [address], [place] [address] Aug, [facility] [address] [id number] [address] [place] [address], [place] [address] Aug, [facility] [address] [id number] [address] [place] [address], [place] [address] Aug, [facility] [address] [id number] [address] [place] [address], [place] [address] Aug, [facility] [address] [id number] [address] [place] [address], [place] [address] Aug, 2014 [facility] [address] [id number] [address] [place] [address], [place] [address] Jul, [facility] [address] [id number] [address] [place] [address], [place] [address] Jul, [facility] [address] [id number] [address] [place] [address], [place] [address] Jul, [facility] [address] [id number] [address] [place] [address], [place] [id number] Jul, [facility] [address] [id number] [address] [place] [address], [place] [id number] 23 Jul, 2014 [facility] [address] [id number] [address] [place] [address], [place] [id number] 23 Jul, 2014 [facility] [address] [id number] [address] [place] [address], [place] [id number] 23 Jul, 2014 [facility] [address] [id number] [address] [place] [address], [place] [id number] 23 Jul, 2014 [facility] [address] [id number] [address] [place] [address], [place] [id number] 20 Jul, 2014 [facility] [address] [id number] [address] [place] [address], [place] [id number] 20 Jul, 2014 [facility] [address] [id number] [address] [place] [address], [place] [id number] 19 Jul, 2014 [facility] [address] [id number] [address] [place] [address], [place] [id number] 19 Jul, 2014 [facility] [address] [id number] [address] [place] [address], [place] [id number] 17 Jul, 2014 [facility] [address] [id number] [address] [place] [address], [place] [id number] 17 Jul, 2014 [facility] [address] [id number] [address] [place] [address], [place] [id number] 16 Jul, 2014 [facility] [address] [id number] [address] [place] [address], [place] [id number] 16 Jul, 2014 [facility] [address] [id number] [address] [place] [address], [place] [id number] 16 Jul, 2014 [facility] [address] [id number] [address] [place] [id number] 16 Jul, 2014 [facility] [address] [id number] [address] [place] [id number] 13 Jul, 2014 [facility] [address] [id number] [address] [place] [address], [place] [id number] Jul, [facility] [address] [id number] [address] [place] [address], [place] [id number] Jul, [facility] [address] [id number] [address] [place] [address], [place] [address] Jul, 2014 [facility] [address] [id number] [address] [place] [address], [place] [id number] Jul, 2014 [facility] [address] [id number] [address] [place] [address], [place] [address] Jul, [facility] [address] [id number] [address] [place] [address], [place] [id number] Jul, [facility] [address] [id number] [address] [place] [address], [place] [id number] Jul, [facility] [address] [id number] [address] [place] [address], [place] [id number] Jul, [facility] [address] [id number] [address] [place] [address], [place] [address] Jul, [facility] [address] [id number] [address] [place] [address], [place] [address] Jul, [facility] [address] [id number] [address] [place] [address], [place] [address] Jul, [facility] [address] [id number] [address] [place] [address], [place] [address] Jun, [facility] [address] [id number] [address] [place] [address], [place] [address] Jun, [facility] [address] [id number] [address] [place] [address], [place] [address] Jun, [facility] [address] [id number] [address] [place] [address], [place] [address] Jun, [facility] [address] [id number] [address] [place] [address], [place] [address] Jun, [facility] [address] [id number] [address] [place] [address], [place] [address] Jun, [facility] [address] [id number] [address] [place] [address], [place] [address] Jun, [facility] [address] [id number] [address] [place] [address], [place] [id number] Jun, [facility] [address] [id number] [address] [place] [address], [place] [address] Jun, [facility] [address] [id number] [address] [place] [address], [place] [address] Jun, [facility] [address] [id number] [address] [place] [address], [place] [address] Jun, [facility] [address] [id number] [address] [place] [address], [place] [address] Jun, [facility] [address] [id number] [address] [place] [address], [place] [address] Jun, [facility] [address] [id number] [address] [place] [address], [place] [address] Jun, [facility] [address] [id number] [address] [place] [address], [place] [address] Jun, [facility] [address] [id number] [address] [place] [address], [place] [address] Jun, [facility] [address] [id number] [address] [place] [address], [place] [address] Jun, [facility] [address] [id number] [address] [place] [address], [place] [address] Jun, [facility] [address] [id number] [address] [place] [address], [place] [address] Jun, [facility] [address] [id number] [address] [place] [address], [place] [address] Jun, [facility] [address] [id number] [address] [place] [address], [place] [address] May, [facility] [address] [id number] [address] [place] [address], [place] [address] May, [facility] [address] [id number] [address] [place] [address], [place] [address] May, [facility] [address] [id number] [address] [place] [address], [place] [address] May, [facility] [address] [id number] [address] [place] [address], [place] [address] May, [facility] [address] [id number] [address] [place] [address], [place] [address] May, [facility] [address] [id number] [address] [place] [address], [place] [address] May, [facility] [address] [id number] [address] [place] [address], [place] [address] May, [facility] [address] [id number] [address] [place] [address], [place] [address] May, [facility] [address] [id number] [address] [place] [address], [place] [address] May, [facility] [address] [id number] [address] [place] [address], [place] [address] May, [facility] [address] [id number] [address] [place] [address], [place] [address] 18 May, 2014 [facility] [address] [id number] [address] [place] [address], [place] [address] 18 May, 2014 [facility] [address] [id number] [address] [place] [address], [place] [address] 17 May, 2014 [facility] [address] [id number] [address] [place] [address], [place] [address] 16 May, 2014 [facility] [address] [id number] [address] [place] [address], [place] [address] 16 May, 2014 [facility] [address] [id number] [address] [place] [address], [place] [address] 15 May, 2014 [facility] [address] [id number] [address] [place] [address], [place] [address] 15 May, 2014 [facility] [address] [id number] [address] [place] [address], [place] [address] May, [facility] [address] [id number] [address] [place] [address], [place] [address] May, [facility] [address] [id number] [address] [place] [address], [place] [address] May, [facility] [address] [id number] [address] [place] [address], [place] [address] May, [facility] [address] [id number] [address] [place] [address], [place] [address] May, [facility] [address] [id number] [address] [place] [address], [place] [address] May, [facility] [address] [id number] [address] [place] [address], [place] [address] May, [facility] [address] [id number] [address] [place] [address], [place] [address] May, [facility] [address] [id number] [address] [place] [address], [place] [address] May, [facility] [address] [id number] [address] [place] [address], [place] [address] May, [facility] [address] [id number] [address] [place] [address], [place] [address] May, [facility] [address] [id number] [address] [place] [address], [place] [address] May, [facility] [address] [id number] [address] [place] [address], [place] [address] May, [facility] [address] [id number] [address] [place] [address], [place] [address] May, [facility] [address] [id number] [address] [place] [address], [place] [address] May, [facility] [address] [id number] [address] [place] [address], [place] [address] May, [facility] [address] [id number] [address] [place] [address], [place] [address] Apr, [facility] [address] [id number] [address] [place] [address], [place] [address] Apr, [facility] [address] [id number] [address] [place] [address], [place] [address] Apr, [facility] [address] [id number] [address] [place] [address], [place] [address] Apr, [facility] [address] [id number] [address] [place] [address], [place] [address] Apr, [facility] [address] [id number] [address] [place] [address], [place] [address] Apr, [facility] [address] [id number] [address] [place] [address], [place] [address] Apr, [facility] [address] [id number] [address] [place] [address], [place] [address] Apr, [facility] [address] [id number] [address] [place] [address], [place] [id number] Apr, [facility] [address] [id number] [address] [place] [address], [place] [address] Apr, [facility] [address] [id number] [address] [place] [address], [place] [address] Mar, [facility] [address] [id number] [address] [place] [address], [place] [address] Mar, [facility] [address] [id number] [address] [place] [address] [address] Mar, [facility] [address] [id number] [address] [place] [address], [place] [id number] 31 Mar, 2013 [facility] [address] [id number] [address] [place] [address], [place] [address] Mar, [facility] [address] [id number] [address] [place] [address], [place] [address] 30 Mar, 2014 [facility] [address] [id number] [address] [place] [address], [place] [address] Mar, [facility] [address] [id number] [address] [place] [address], [place] [address] Mar, [facility] [address] [id number] [address] [place] [address], [place] [id number] Mar, [facility] [address] [id number] [address] [place] [address], [place] [id number] Mar, [facility] [address] [id number] [address] [place] [id number] Mar, [facility] [address] [id number] [address] [place] [id number] Mar, [facility] [address] [id number] [address] [place] [id number] Mar, [facility] [address] [id number] [address] [place] [id number] Mar, 2013 [facility] [address] [id number] [address] [place] [id number] Mar, 2013 [facility] [address] [id number] [address] [place] [id number] Mar, [facility] [address] [id number] [address] [place] [id number] Mar, [facility] [address] [id number] [address] [place] [id number] Mar, 2013 [facility] [address] [id number] [address] [place] [address], [place] [id number] 02 Mar, 2013 [facility] [address] [id number] [address] [place] [address], [place] [id number] 02 Mar, 2013 [facility] [address] [id number] [address] [place] [address], [place] [id number] 05 Sep, 2013 [facility] [address] [id number] [address] [place] [address], [place] [id number] 05 Sep, 2013 [facility] [address] [id number] [address] [place] [address], [place] [id number] 04 Sep, 2013 [facility] [address] [id number] [address] [place] [address], [place] [id number] 04 Sep, 2013 [facility] [address] [id number] [address] [place] [address], [place] [id number] 03 Feb, 2013 [facility] [address] [id number] [address] [place] [address], [place] [id number] 03 Feb, 2013 [facility] [address] [id number] [address] [place] [address], [place] [id number] 02 Feb, 2013 [facility] [address] [id number] [address] [place] [address], [place] [id number] Feb, 2013 [facility] [address] [id number] [address] [place] [address], [place] [id number] 02 Feb, 2013 [facility] [address] [id number] [address] [place] [address], [place] [id number] Feb, 2013 [facility] [address] [id number] [address] [place] [address], [place] [id number] Jan, [facility] [address] [id number] [address] [place] [address], [place] [id number] Jan, [facility] [address] [id number] [address] [place] [address], [place] [id number] Jan, [facility] [address] [id number] [address] [place] [address], [place] [id number] Jan, [facility] [address] [id number] [facility] [id number] Jan, [facility] [address] [id number] [address] [place] [address], [place] [id number] Jan, [facility] [address] [id number] [address] [place] [address], [place] [id number] Jan, [facility] [address] [id number] [address] [place] [address], [place] [id number] Jan, [facility] [address] [id number] [address] [place] [address], [place] [id number] Jan, [facility] [address] [id number] [address] [place] [address], [place] [id number] Jan, [facility] [address] [id number] [address] [place] [address], [place] [id number] Jan, [facility] [address] [id number] [address] [place] [address], [place] [id number] Jan, [facility] [address] [id number] [address] [place] [address], [place] [id number] Dec, [facility] [address] [id number] [address] [place] [address], [place] [id number] Dec, [facility] [address] [id number] [address] [place] [address], [place] [id number] Dec, [facility] [address] [id number] [address] [place] [address], [place] [id number] Dec, [facility] [address] [id number] [address] [place] [address], [place] [id number] Dec, [facility] [address] [id number] [address] [place] [address], [place] [id number] Dec, [facility] [address] [id number] [address] [place] [address], [place] [id number] Dec, [facility] [address] [id number] [address] [place] [address], [place] [id number] Dec, [facility] [address] [id number] [facility] [id number] Dec, [facility] [address] [id number] [address] [place] [address], [place] [id number] Dec, [facility] [address] [id number] [address] [place] [address], [place] [id number] Dec, [facility] [address] [id number] [address] [place] [address], [place] [id number] Dec, [facility] [address] [id number] [address] [place] [address], [place] [id number] Nov, [facility] [address] [id number] [address] [place] [address], [place] [id number] Nov, [facility] [address] [id number] [address] [place] [address], [place] [id number] Nov, [facility] [address] [id number] [address] [place] [address], [place] [address] Nov, [facility] [address] [id number] [address] [place] [address], [place] [address] Nov, [facility] [address] [id number] [address] [place] [address], [place] [address] Nov, [facility] [address] [id number] [address] [place] [address], [place] [id number] Nov, [facility] [address] [id number] [address] [place] [address], [place] [address] Nov, [facility] [address] [id number] [address] [place] [address], [place] [address] Nov, [facility] [address] [id number] [address] [place] [address], [place] [id number] Nov, [facility] [address] [id number] [address] [place] [address], [place] [id number] Nov, [facility] [address] [id number] [facility] [address] Nov, [facility] [address] [id number] [address] [place] [address], [place] [address] Nov, [facility] [address] [id number] [address] [place] [address], [place] [id number] Nov, [facility] [address] [id number] [address] [place] [address], [place] [id number] October, [facility] [address] [id number] [address] [place] [address], [place] [address] October, [facility] [address] [id number] [address] [place] [address], [place] [id number] October, [facility] [address] [id number] [address] [place] [address], [place] [id number] October, [facility] [address] [id number] [address] [place] [address], [place] [id number] October, [facility] [address] [id number] [address] [place] [address], [place] [address] October, [facility] [address] [id number] [address] [place] [address], [place] [address] October, [facility] [address] [id number] [address] [place] [address], [place] [id number] October, [facility] [address] [id number] [address] [place] [address], [place] [id number] October, [facility] [address] [id number] [address] [place] [address], [place] [address] October, [facility] [address] [id number] [address] [place] [address], [place] [address] October, [facility] [address] [id number] [address] [place] [address], [place] [address] October, [facility] [address] [id number] [address] [place] [address], [place] [id number] Sep, [facility] [address] [id number] [facility] [id number] Sep, [facility] [address] [id number] [address] [place] [address], [place] [id number] Sep, [facility] [address] [id number] [facility] [address] Sep, [facility] [address] [id number] [address] [place] [address], [place] [address] Sep, [facility] [address] [id number] [address] [place] [address], [place] [id number] Sep, [facility] [address] [id number] [address] [place] [address], [place] [address] Aug, [facility] [address] [id number] [address] [place] [address], [place] [id number] Aug, [facility] [address] [id number] [address] [place] [address], [place] [id number] Aug, [facility] [address] [id number] [address] [place] [address], [place] [address] Aug, [facility] [address] [id number] [address] [place] [address], [place] [address] Aug, [facility] [address] [id number] [address] [place] [address], [place] [address] Aug, [facility] [address] [id number] [address] [place] [address], [place] [address] Jul, [facility] [address] [id number] [address] [place] [address], [place] [id number] Jul, [facility] [address] [id number] [address] [place] [address], [place] [address] Jul, [facility] [address] [id number] [address] [place] [address], [place] [address] Jul, [facility] [address] [id number] [address] [place] [address], [place] [id number] 13 Jul, 2013 [facility] [address] [id number] [address] [place] [address], [place] [id number] Jul, [facility] [address] [id number] [address] [place] [address], [place] [id number] Jul, [facility] [address] [id number] [address] [place] [address], [place] [id number] Jul, [facility] [address] [id number] [address] [place] [address], [place] [id number] Jul, [facility] [address] [id number] [address] [place] [address], [place] [address] Jul, [facility] [address] [id number] [address] [place] [address], [place] [id number] Jun, [facility] [address] [id number] [address] [place] [address], [place] [address] Jun, [facility] [address] [id number] [address] [place] [address], [place] [id number] Jun, [facility] [address] [id number] [address] [place] [address], [place] [address] Jun, [facility] [address] [id number] [address] [place] [address], [place] [address] Jun, [facility] [address] [id number] [address] [place] [address], [place] [address] Jun, [facility] [address] [id number] [address] [place] [address], [place] [address] Jun, [facility] [address] [id number] [address] [place] [address], [place] [address] Jun, [facility] [address] [id number] [address] [place] [address], [place] [address] May, [facility] [address] [id number] [address] [place] [address], [place] [address] May, [facility] [address] [id number] [address] [place] [address], [place] [id number] May, [facility] [address] [id number] [address] [place] [address], [place] [address] May, [facility] [address] [id number] [address] [place] [address], [place] [address] May, [facility] [address] [id number] [address] [place] [address], [place] [address] May, [facility] [address] [id number] [address] [place] [address], [place] [address] May, [facility] [address] [id number] [address] [place] [address], [place] [id number] May, [facility] [address] [id number] [address] [place] [address], [place] [address] Apr, [facility] [address] [id number] [address] [place] [id number] Apr, [facility] [address] [id number] [address] [place] [address], [place] [address] Apr, [facility] [address] [id number] [address] [place] [id number] Apr, [facility] [address] [id number] [address] [place] [id number] Apr, [facility] [address] [id number] [address] [place] [id number] Apr, [facility] [address] [id number] [address] [place] [address], [place] [address] Mar, [facility] [address] [id number] [address] [place] [id number] Mar, [facility] [address] [id number] [address] [place] [address], [place] [id number] Mar, [facility] [address] [id number] [address] [place] [address], [place] [id number] Mar, [facility] [address] [id number] [address] [place] [address], [place] [id number] Mar, [facility] [address] [id number] [address] [place] [address], [place] [address] Mar, [facility] [address] [id number] [address] [place] [address], [place] [id number] Mar, [facility] [address] [id number] [address] [place] [address], [place] [id number] 30 Feb, 2012 [facility] [address] [id number] [address] [place] [address], [place] [id number] 30 Feb, 2013 [facility] [address] [id number] [address] [place] [address], [place] [id number] 27 Feb, 2013 [facility] [address] [id number] [address] [place] [address], [place] [address] Feb, 2012 [facility] [address] [id number] [address] [place] [address], [place] [address] Feb, [facility] [address] [id number] [address] [place] [address], [place] [address] Feb, [facility] [address] [id number] [address] [place] [address], [place] [address] Jan, [facility] [address] [id number] [address] [place] [address], [place] [address] Jan, [facility] [address] [id number] [address] [place] [address], [place] [address] Jan, [facility] [address] [id number] [address] [place] [address], [place] [address] Jan, [facility] [address] [id number] [address] [place] [address], [place] [address] Jan, [facility] [address] [id number] [address] [place] [address], [place] [address] Jan, [facility] [address] [id number] [address] [place] [address], [place] [address] Jan, [facility] [address] [id number] [address] [place] [address], [place] [address] Jan, [facility] [address] [id number] [address] [place] [address], [place] [id number] Jan, [facility] [address] [id number] [address] [place] [address], [place] [address] Dec, [facility] [address] [id number] [address] [place] [address], [place] [address] Dec, [facility] [address] [id number] [address] [place] [address], [place] [id number] Dec, [facility] [address] [id number] [address] [place] [address], [place] [address] Dec, [facility] [address] [id number] [address] [place] [address], [place] [address] Dec, [facility] [address] [id number] [address] [place] [address], [place] [address] Dec, [facility] [address] [id number] [address] [place] [address], [place] [id number] Dec, [facility] [address] [id number] [address] [place] [address], [place] [address] Dec, [facility] [address] [id number] [address] [place] [address], [place] [id number] Dec, [facility] [address] [id number] [address] [place] [address], [place] [address] Dec, [facility] [address] [id number] [address] [place] [address], [place] [address] Dec, [facility] [address] [id number] [address] [place] [address], [place] [address] Dec, [facility] [address] [id number] [address] [place] [address], [place] [address] Dec, [facility] [address] [id number] [address] [place] [address], [place] [address] Nov, [facility] [address] [id number] [address] [place] [address], [place] [address] Nov, [facility] [address] [id number] [address] [place] [address], [place] [address] Nov, [facility] [address] [id number] [address] [place] [address], [place] [address] Nov, [facility] [address] [id number] [address] [place] [address], [place] [address] October, [facility] [address] [id number] [address] [place] [address], [place] [address] October, [facility] [address] [id number] [address] [place] [address], [place] [address] October, [facility] [address] [id number] [address] [place] [address], [place] [address] October, [facility] [address] [id number] [address] [place] [address], [place] [id number] October, [facility] [address] [id number] [address] [place] [address], [place] [address] October, [facility] [address] [id number] [address] [place] [address], [place] [address] Sep, [facility] [address] [id number] [address] [place] [address], [place] [id number] Sep, [facility] [address] [id number] [address] [place] [address], [place] [id number] Sep, [facility] [address] [id number] [address] [place] [address], [place] [id number] Sep, [facility] [address] [id number] [address] [place] [address], [place] [address] Sep, [facility] [address] [id number] [facility] [address] 16 Sep, 2012 [facility] [address] [id number] [address] [place] [address], [place] [address] 12 Sep, 2012 [facility] [address] [id number] [address] [place] [address], [place] [id number] Sep, [facility] [address] [id number] [address] [place] [address], [place] [address] Sep, [facility] [address] [id number] [address] [place] [address], [place] [address] Sep, [facility] [address] [id number] [address] [place] [address], [place] [address] Sep, [facility] [address] [id number] [address] [place] [address], [place] [address] Aug, [facility] [address] [id number] [address] [place] [address], [place] [id number] 25 Aug, 2012 [facility] [address] [id number] [address] [place] [address], [place] [address] 25 Aug, 2012 [facility] [address] [id number] [address] [place] [address], [place] [id number] 21 Aug, 2012 [facility] [address] [id number] [address] [place] [address], [place] [id number] 19 Aug, 2012 [facility] [address] [id number] [address] [place] [address], [place] [id number] 18 Aug, 2012 [facility] [address] [id number] [address] [place] [address], [place] [id number] 17 Aug, 2012 [facility] [address] [id number] [address] [place] [address], [place] [id number] 15 Aug, 2012 [facility] [address] [id number] [address] [place] [address], [place] [id number] 15 Aug, 2012 [facility] [address] [id number] [address] [place] [address], [place] [id number] Aug, [facility] [address] [id number] [address] [place] [address], [place] [id number] Aug, [facility] [address] [id number] [address] [place] [address], [place] [id number] Aug, [facility] [address] [id number] [address] [place] [address], [place] [address] Jul, [facility] [address] [id number] [address] [place] [address], [place] [address] Jul, [facility] [address] [id number] [address] [place] [address], [place] [id number] Jul, [facility] [address] [id number] [address] [place] [address], [place] [id number] Jul, [facility] [address] [id number] [address] [place] [address], [place] [id number] Jul, [facility] [address] [id number] [address] [place] [address], [place] [address] Jul, [facility] [address] [id number] [address] [place] [address], [place] [address] Jul, [facility] [address] [id number] [address] [place] [address], [place] [id number] Jul, [facility] [address] [id number] [address] [place] [address], [place] [address] Jul, [facility] [address] [id number] [address] [place] [address], [place] [address] Jul, [facility] [address] [id number] [address] [place] [address], [place] [id number] May, [facility] [address] [id number] [id number] May, [facility] [address] [id number] [address] [place] [address], [place] [address] May, [facility] [address] [id number] [address] [place] [id number] May, [facility] [address] [facility] [id number] [address] [place] [id number] May, [facility] [address] [facility] [id number] [address] [place] [id number] Apr, [facility] [address] [id number] [place] [id number] Apr, [facility] [address] [facility] [id number] [address] [place] [id number] Apr, [facility] [address] [facility] [id number] [address] [place] [id number] Mar, [facility] [address] [id number] [place] [id number] Mar, [facility] [address] [facility] [id number] [address] [place] [id number] Mar, [facility] [address] [id number] [place] [id number] Feb, [facility] [address] [facility] [id number] [address] [place] [id number] Feb, [facility] [address] [facility] [id number] [address] [place] [id number] Feb, [facility] [address] [id number] [place] [id number] Feb, [facility] [address] [id number] [place] [id number] Feb, [facility] [address] [id number] [place] [id number] Jan, [facility] [address] [id number] [address] [place] [address], [place] [id number] Jan, [facility] [address] [id number] [place] [id number] Jan, [facility] [address] [id number] [place] [id number] Jan, [facility] [address] [id number] [place] [id number] Jan, [facility] [address] [facility] [id number] [address] [place] [address], [place] [id number] Jan, [facility] [address] [facility] [id number] [address] [place] [address], [place] [id number] Jan, [facility] [address] [facility] [id number] [address] [place] [address], [place] [id number] Aug, [facility] [address] [id number] [place] [id number] Aug, [facility] [address] [facility] [id number] [address] [place] [address], [place] [id number] Jul, [facility] [address] [facility] [id number] [address] [place] [address], [place] [id number] Jul, [facility] [address] [facility] [id number] [address] [place] [address], [place] [id number] Jul, [facility] [address] [id number] [place] [id number] Jul, [facility] [address] [facility] [id number] [address] [place] [address], [place] [id number] Jul, [facility] [address] [id number] [place] [id number] Jul, [facility] [address] [facility] [id number] [address] [place] [address], [place] [id number] Jul, [facility] [address] [id number] [place] [id number] Jul, [facility] [address] [id number] [place] [id number] Jul, [facility] [address] [id number] [place] [id number] Jul, [facility] [address] [facility] [id number] [address] [place] [address], [place] [id number] May, [facility] [address] [id number] [address] [place] [id number] May, [facility] [address] [id number] [address] [place] [id number] May, [facility] [address] [id number] [address] [place] [id number] Apr, [facility] [address] [id number] [address] [place] [id number] Jan, [facility] [address] [id number] [address] [place] [id number] Jan, [facility] [address] [id number] [address] [place] [id number] Dec, [facility] [address] [id number] [address] [place] [id number] Dec, [facility] [address] [id number] [address] [place] [phone] May, [facility] [address] [id number] [address] [place] [id number] Mar, [facility] [address] [id number] [address] [place] [id number] Mar, [facility] [address] [id number] [address] [place] [id number] Jan, IMMUNIZATIONS No Known Immunizations SOCIAL HISTORY [...]
--- OUTSIDE RECORDS SUMMARY | 2020-01-28 12:51 | XMS REPORT ---
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 855148293 Problem History of venous thromboembolism V12.51 Active 502944114 Problem Cellulitis of unspecified part of limb L03.119 Active 483311131 Problem Gastroesophageal reflux disease without esophagitis K21.9 Active 105878257 Problem History of pulmonary embolism Z86.711 Active 632292143 Problem Pseudotumor cerebri G93.2 Active 62994178 Problem History of DVT (deep vein thrombosis) Z86.718 Active 255245786 ALLERGIES No Information ENCOUNTERS Encounter Location Date Diagnosis [place] [id number] [facility] [id number] [address] [place] [id number] Apr, residential (current) use of 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 Z79.01 [facility] [address] [facility] [id number] [address] [place] [id number] Apr, residential 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.01 [facility] [address] [facility] [id number] [address] [place] [address] Apr, Cellulitis of unspecified pa rt of limb L03.119 ; Allergic contact dermatitis due to adhesives L23.1 and Chronic pain syndrome G89.4 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 [address] [place] [id number] [address] [place] [id number] 16 Apr, 2015 [facility] [address] [place] [id number] [place] [phone] Apr, [place] [address] [place] [id number] [place] [phone] Mar, [place] [address] [address] Mar, [place] [address] [address] Mar, Sore throat J02.9 ; Gastroes ophageal reflux disease without esophagitis K21.9 ; Pseudotumor cerebri G93.2 ; Chronic pain syndrome G89.4 ; Choriocarcinoma C58 ; History of pulmonary embolism Z86.711 ; History of DVT (deep vein thrombosis) Z86.718 ; Anxiety F41.9 and Tachycardia R00.0 [place] [address] [id number] Feb, Anxiety 300.00 and Chronic p ain 338.29 [place] [address] [address] [place] [id number] [address] [place] [address] Feb, [place] [address] [place] [id number] [address] [place] [address] Feb, [place] [address] [address] Jan, 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 [address] [place] [id number] [address] [place] [address] Jan, Anxiety 300.00 and Chronic p ain 338.29 [facility] [address] [place] [id number] [place] [address] Jan, [facility] [address] [address] Jan, [facility] [address] [address] Jan, [place] [address] [address] Dec, Weakness 780.79 [place] [address] [address] Dec, residential current use of ant icoagulant therapy V58.61 [place] [address] [address] Dec, Palpitations 785.1 ; Tremor 781.0 ; Weakness 780.79 ; residential current use of anticoagulant therapy V58.61 and Yeast vaginitis 112.1 [place] [address] [address] [place] [id number] [address] [place] [address] Dec, [place] [address] [address] Dec, Cervicalgia 723.1 ; Tachycar yoseph 785.0 ; Pseudotumor cerebri 348.2 and History of venous thromboembolism V12.51 [place] [address] [address] Nov, [place] [address] [address] Nov, [place] [address] [address] Nov, Tachycardia 785.0 ; Pseudotu mor cerebri 348.2 ; Anxiety 300.00 and History of venous thromboembolism V12.51 [facility] [address] [id number] [address] [place] [address] Nov, [facility] [address] [id number] [address] [place] [address] 18 Nov, 2014 [facility] [address] [id number] [address] [place] [address] Nov, [facility] [address] [id number] [address] [place] [address] Nov, [facility] [address] [facility] [id number] [address] [place] [address] Nov, [facility] [address] [facility] [id number] [address] [place] [address] Nov, [facility] [address] [facility] [id number] [address] [place] [address] Nov, [facility] [address] [facility] [id number] [address] [place] [phone] October, [facility] [address] [facility] [id number] [address] [place] [id number] October, [facility] [address] [place] [id number] [address] [place] [id number] October, Pain in thoracic spine 724.1 and Tachycardia 785.0 [facility] [address] [id number] [address] [place] [address] October, [facility] [address] [id number] [address] [place] [address] October, [facility] [address] [facility] [id number] [address] [place] [id number] 14 Sep, 2014 [facility] [address] [facility] [id number] [address] [place] [address] Sep, [facility] [address] [id number] [facility] [place] [id number] Aug, [facility] [address] [id number] [address] [place] [address], [place] [id number] Aug, [facility] [address] [id number] [address] [place] [address], [place] [id number] Aug, [facility] [address] [id number] [address] [place] [address], [place] [id number] Aug, [facility] [address] [id number] [address] [place] [address], [place] [id number] Aug, [facility] [address] [id number] [address] [place] [address], [place] [id number] Aug, [facility] [address] [id number] [address] [place] [address], [place] [id number] Aug, [facility] [address] [id number] [address] [place] [address], [place] [id number] Aug, [facility] [address] [id number] [address] [place] [address], [place] [id number] Aug, [facility] [address] [id number] [address] [place] [address], [place] [id number] Aug, [facility] [address] [id number] [address] [place] [address], [place] [id number] Aug, [facility] [address] [id number] [address] [place] [address], [place] [id number] Aug, 2014 [facility] [address] [id number] [address] [place] [address], [place] [id number] Jul, [facility] [address] [id number] [address] [place] [address], [place] [id number] Jul, [facility] [address] [id number] [address] [place] [address], [place] [id number] Jul, [facility] [address] [id number] [address] [place] [address], [place] [id number] Jul, [facility] [address] [id number] [address] [place] [address], [place] [id number] 23 Jul, 2014 [facility] [address] [id number] [address] [place] [address], [place] [id number] 23 Jul, 2014 [facility] [address] [id number] [address] [place] [address], [place] [id number] 23 Jul, 2014 [facility] [address] [id number] [address] [place] [address], [place] [id number] 23 Jul, 2014 [facility] [address] [id number] [address] [place] [address], [place] [id number] 20 Jul, 2014 [facility] [address] [id number] [address] [place] [address], [place] [id number] 20 Jul, 2014 [facility] [address] [id number] [address] [place] [address], [place] [id number] 19 Jul, 2014 [facility] [address] [id number] [address] [place] [address], [place] [id number] 19 Jul, 2014 [facility] [address] [id number] [address] [place] [address], [place] [id number] 17 Jul, 2014 [facility] [address] [id number] [address] [place] [address], [place] [id number] 17 Jul, 2014 [facility] [address] [id number] [address] [place] [address], [place] [id number] 16 Jul, 2014 [facility] [address] [id number] [address] [place] [address], [place] [id number] 16 Jul, 2014 [facility] [address] [id number] [address] [place] [address], [place] [id number] 16 Jul, 2014 [facility] [address] [id number] [address] [place] [id number] 16 Jul, 2014 [facility] [address] [id number] [address] [place] [id number] 13 Jul, 2014 [facility] [address] [id number] [address] [place] [address], [place] [id number] Jul, [facility] [address] [id number] [address] [place] [address], [place] [id number] Jul, [facility] [address] [id number] [address] [place] [address], [place] [id number] Jul, 2014 [facility] [address] [id number] [address] [place] [address], [place] [id number] Jul, 2014 [facility] [address] [id number] [address] [place] [address], [place] [id number] Jul, [facility] [address] [id number] [address] [place] [address], [place] [id number] Jul, [facility] [address] [id number] [address] [place] [address], [place] [id number] Jul, [facility] [address] [id number] [address] [place] [address], [place] [id number] Jul, [facility] [address] [id number] [address] [place] [address], [place] [id number] Jul, [facility] [address] [id number] [address] [place] [address], [place] [id number] Jul, [facility] [address] [id number] [address] [place] [address], [place] [id number] Jul, [facility] [address] [id number] [address] [place] [address], [place] [id number] Jun, [facility] [address] [id number] [address] [place] [address], [place] [id number] Jun, [facility] [address] [id number] [address] [place] [address], [place] [id number] Jun, [facility] [address] [id number] [address] [place] [address], [place] [id number] Jun, [facility] [address] [id number] [address] [place] [address], [place] [id number] Jun, [facility] [address] [id number] [address] [place] [address], [place] [id number] Jun, [facility] [address] [id number] [address] [place] [address], [place] [id number] Jun, [facility] [address] [id number] [address] [place] [address], [place] [id number] Jun, [facility] [address] [id number] [address] [place] [address], [place] [id number] Jun, [facility] [address] [id number] [address] [place] [address], [place] [id number] Jun, [facility] [address] [id number] [address] [place] [address], [place] [id number] Jun, [facility] [address] [id number] [address] [place] [address], [place] [id number] Jun, [facility] [address] [id number] [address] [place] [address], [place] [id number] Jun, [facility] [address] [id number] [address] [place] [address], [place] [id number] Jun, [facility] [address] [id number] [address] [place] [address], [place] [id number] Jun, [facility] [address] [id number] [address] [place] [address], [place] [id number] Jun, [facility] [address] [id number] [address] [place] [address], [place] [id number] Jun, [facility] [address] [id number] [address] [place] [address], [place] [id number] Jun, [facility] [address] [id number] [address] [place] [address], [place] [id number] Jun, [facility] [address] [id number] [address] [place] [address], [place] [id number] Jun, [facility] [address] [id number] [address] [place] [address], [place] [id number] May, [facility] [address] [id number] [address] [place] [address], [place] [id number] May, [facility] [address] [id number] [address] [place] [address], [place] [id number] May, [facility] [address] [id number] [address] [place] [address], [place] [id number] May, [facility] [address] [id number] [address] [place] [address], [place] [id number] May, [facility] [address] [id number] [address] [place] [address], [place] [id number] May, [facility] [address] [id number] [address] [place] [address], [place] [id number] May, [facility] [address] [id number] [address] [place] [address], [place] [id number] May, [facility] [address] [id number] [address] [place] [address], [place] [id number] May, [facility] [address] [id number] [address] [place] [address], [place] [id number] May, [facility] [address] [id number] [address] [place] [address], [place] [id number] May, [facility] [address] [id number] [address] [place] [address], [place] [id number] 18 May, 2014 [facility] [address] [id number] [address] [place] [address], [place] [id number] 18 May, 2014 [facility] [address] [id number] [address] [place] [address], [place] [id number] 17 May, 2014 [facility] [address] [id number] [address] [place] [address], [place] [id number] 16 May, 2014 [facility] [address] [id number] [address] [place] [address], [place] [id number] 16 May, 2014 [facility] [address] [id number] [address] [place] [address], [place] [id number] 15 May, 2014 [facility] [address] [id number] [address] [place] [address], [place] [id number] 15 May, 2014 [facility] [address] [id number] [address] [place] [address], [place] [id number] May, [facility] [address] [id number] [address] [place] [address], [place] [id number] May, [facility] [address] [id number] [address] [place] [address], [place] [id number] May, [facility] [address] [id number] [address] [place] [address], [place] [id number] May, [facility] [address] [id number] [address] [place] [address], [place] [id number] May, [facility] [address] [id number] [address] [place] [address], [place] [id number] May, [facility] [address] [id number] [address] [place] [address], [place] [id number] May, [facility] [address] [id number] [address] [place] [address], [place] [id number] May, [facility] [address] [id number] [address] [place] [address], [place] [id number] May, [facility] [address] [id number] [address] [place] [address], [place] [id number] May, [facility] [address] [id number] [address] [place] [address], [place] [id number] May, [facility] [address] [id number] [address] [place] [address], [place] [id number] May, [facility] [address] [id number] [address] [place] [address], [place] [id number] May, [facility] [address] [id number] [address] [place] [address], [place] [id number] May, [facility] [address] [id number] [address] [place] [address], [place] [id number] May, [facility] [address] [id number] [address] [place] [address], [place] [id number] May, [facility] [address] [id number] [address] [place] [address], [place] [id number] Apr, [facility] [address] [id number] [address] [place] [address], [place] [id number] Apr, [facility] [address] [id number] [address] [place] [address], [place] [id number] Apr, [facility] [address] [id number] [address] [place] [address], [place] [id number] Apr, [facility] [address] [id number] [address] [place] [address], [place] [id number] Apr, [facility] [address] [id number] [address] [place] [address], [place] [id number] Apr, [facility] [address] [id number] [address] [place] [address], [place] [id number] Apr, [facility] [address] [id number] [address] [place] [address], [place] [id number] Apr, [facility] [address] [id number] [address] [place] [address], [place] [id number] Apr, [facility] [address] [id number] [address] [place] [address], [place] [id number] Apr, [facility] [address] [id number] [address] [place] [address], [place] [id number] Mar, [facility] [address] [id number] [address] [place] [address], [place] [id number] Mar, [facility] [address] [id number] [address] [place] [address] [address] Mar, [facility] [address] [id number] [address] [place] [address], [place] [id number] 31 Mar, 2013 [facility] [address] [id number] [address] [place] [address], [place] [id number] Mar, [facility] [address] [id number] [address] [place] [address], [place] [id number] 30 Mar, 2014 [facility] [address] [id number] [address] [place] [address], [place] [id number] Mar, [facility] [address] [id number] [address] [place] [address], [place] [id number] Mar, [facility] [address] [id number] [address] [place] [address], [place] [id number] Mar, [facility] [address] [id number] [address] [place] [address], [place] [id number] Mar, [facility] [address] [id number] [address] [place] [id number] Mar, [facility] [address] [id number] [address] [place] [id number] Mar, [facility] [address] [id number] [address] [place] [id number] Mar, [facility] [address] [id number] [address] [place] [id number] Mar, 2013 [facility] [address] [id number] [address] [place] [id number] Mar, 2013 [facility] [address] [id number] [address] [place] [id number] Mar, [facility] [address] [id number] [address] [place] [id number] Mar, [facility] [address] [id number] [address] [place] [id number] Mar, 2013 [facility] [address] [id number] [address] [place] [address], [place] [id number] 02 Mar, 2013 [facility] [address] [id number] [address] [place] [address], [place] [id number] 02 Mar, 2013 [facility] [address] [id number] [address] [place] [address], [place] [id number] 05 Sep, 2013 [facility] [address] [id number] [address] [place] [address], [place] [id number] 05 Sep, 2013 [facility] [address] [id number] [address] [place] [address], [place] [id number] 04 Sep, 2013 [facility] [address] [id number] [address] [place] [address], [place] [id number] 04 Sep, 2013 [facility] [address] [id number] [address] [place] [address], [place] [id number] 03 Feb, 2013 [facility] [address] [id number] [address] [place] [address], [place] [id number] 03 Feb, 2013 [facility] [address] [id number] [address] [place] [address], [place] [id number] 02 Feb, 2013 [facility] [address] [id number] [address] [place] [address], [place] [id number] Feb, 2013 [facility] [address] [id number] [address] [place] [address], [place] [id number] 02 Feb, 2013 [facility] [address] [id number] [address] [place] [address], [place] [id number] Feb, 2013 [facility] [address] [id number] [address] [place] [address], [place] [id number] Jan, [facility] [address] [id number] [address] [place] [address], [place] [id number] Jan, [facility] [address] [id number] [address] [place] [address], [place] [id number] Jan, [facility] [address] [id number] [address] [place] [address], [place] [id number] Jan, [facility] [address] [id number] [facility] [place] [id number] Jan, [facility] [address] [id number] [address] [place] [address], [place] [id number] Jan, [facility] [address] [id number] [address] [place] [address], [place] [id number] Jan, [facility] [address] [id number] [address] [place] [address], [place] [id number] Jan, [facility] [address] [id number] [address] [place] [address], [place] [address] Jan, [facility] [address] [id number] [address] [place] [address], [place] [id number] Jan, [facility] [address] [id number] [address] [place] [address], [place] [id number] Jan, [facility] [address] [id number] [address] [place] [address], [place] [id number] Jan, [facility] [address] [id number] [address] [place] [address], [place] [id number] Dec, [facility] [address] [address] [id number] [address] [place] [address], [place] [id number] Dec, [facility] [address] [id number] [address] [place] [address], [place] [id number] Dec, [facility] [address] [id number] [address] [place] [address], [place] [id number] Dec, [facility] [address] [id number] [address] [place] [address], [place] [address] Dec, [facility] [address] [id number] [address] [place] [address], [place] [id number] Dec, [facility] [address] [id number] [address] [place] [address], [place] [id number] Dec, [facility] [address] [id number] [address] [place] [address], [place] [id number] Dec, [facility] [address] [id number] [facility] [place] [id number] Dec, [facility] [address] [id number] [address] [place] [address], [place] [id number] Dec, [facility] [address] [id number] [address] [place] [address], [place] [id number] Dec, [facility] [address] [id number] [address] [place] [address], [place] [id number] Dec, [facility] [address] [id number] [address] [place] [address], [place] [id number] Nov, [facility] [address] [id number] [address] [place] [address], [place] [id number] Nov, [facility] [address] [id number] [address] [place] [address], [place] [phone] Nov, [facility] [address] [id number] [address] [place] [address], [place] [id number] Nov, [facility] [address] [id number] [address] [place] [address], [place] [phone] Nov, [facility] [address] [id number] [address] [place] [address], [place] [id number] Nov, [facility] [address] [id number] [address] [place] [address], [place] [id number] Nov, [facility] [address] [id number] [address] [place] [address], [place] [id number] Nov, [facility] [address] [id number] [address] [place] [address], [place] [id number] Nov, [facility] [address] [id number] [address] [place] [address], [place] [id number] Nov, [facility] [address] [id number] [address] [place] [address], [place] [id number] Nov, [facility] [address] [id number] [facility] [place] [address] Nov, [facility] [address] [id number] [address] [place] [address], [place] [id number] Nov, [facility] [address] [id number] [address] [place] [address], [place] [id number] Nov, [facility] [address] [id number] [address] [place] [address], [place] [id number] October, [facility] [address] [id number] [address] [place] [address], [place] [address] October, [facility] [address] [id number] [address] [place] [address], [place] [id number] October, [facility] [address] [id number] [address] [place] [address], [place] [id number] October, [facility] [address] [id number] [address] [place] [address], [place] [id number] October, [facility] [address] [id number] [address] [place] [address], [place] [id number] October, [facility] [address] [id number] [address] [place] [address], [place] [id number] October, [facility] [address] [id number] [address] [place] [address], [place] [id number] October, [facility] [address] [id number] [address] [place] [address], [place] [id number] October, [facility] [address] [id number] [address] [place] [address], [place] [id number] October, [facility] [address] [id number] [address] [place] [address], [place] [id number] October, [facility] [address] [id number] [address] [place] [address], [place] [id number] October, [facility] [address] [id number] [address] [place] [address], [place] [id number] Sep, [facility] [address] [id number] [facility] [place] [id number] Sep, [facility] [address] [id number] [address] [place] [address], [place] [id number] Sep, [facility] [address] [id number] [facility] [place] [id number] Sep, [facility] [address] [id number] [address] [place] [address], [place] [id number] Sep, [facility] [address] [id number] [address] [place] [address], [place] [id number] Sep, [facility] [address] [id number] [address] [place] [address], [place] [id number] Aug, [facility] [address] [id number] [address] [place] [address], [place] [id number] Aug, [facility] [address] [id number] [address] [place] [address], [place] [id number] Aug, [facility] [address] [id number] [address] [place] [address], [place] [id number] Aug, [facility] [address] [id number] [address] [place] [address], [place] [id number] Aug, [facility] [address] [id number] [address] [place] [address], [place] [phone] Aug, [facility] [address] [id number] [address] [place] [address], [place] [id number] Jul, [facility] [address] [id number] [address] [place] [address], [place] [id number] Jul, [facility] [address] [id number] [address] [place] [address], [place] [id number] Jul, [facility] [address] [id number] [address] [place] [address], [place] [id number] Jul, [facility] [address] [id number] [address] [place] [address], [place] [id number] 13 Jul, 2013 [facility] [address] [id number] [address] [place] [address], [place] [id number] Jul, [facility] [address] [id number] [address] [place] [address], [place] [id number] Jul, [facility] [address] [id number] [address] [place] [address], [place] [id number] Jul, [facility] [address] [id number] [address] [place] [address], [place] [id number] Jul, [facility] [address] [id number] [address] [place] [address], [place] [id number] Jul, [facility] [address] [id number] [address] [place] [address], [place] [id number] Jun, [facility] [address] [id number] [address] [place] [address], [place] [id number] Jun, [facility] [address] [id number] [address] [place] [address], [place] [id number] Jun, [facility] [address] [id number] [address] [place] [address], [place] [id number] Jun, [facility] [address] [id number] [address] [place] [address], [place] [id number] Jun, [facility] [address] [id number] [address] [place] [address], [place] [id number] Jun, [facility] [address] [id number] [address] [place] [address], [place] [id number] Jun, [facility] [address] [id number] [address] [place] [address], [place] [id number] Jun, [facility] [address] [id number] [address] [place] [address], [place] [id number] May, [facility] [address] [id number] [address] [place] [address], [place] [id number] May, [facility] [address] [id number] [address] [place] [address], [place] [id number] May, [facility] [address] [id number] [address] [place] [address], [place] [id number] May, [facility] [address] [id number] [address] [place] [address], [place] [id number] May, [facility] [address] [id number] [address] [place] [address], [place] [id number] May, [facility] [address] [id number] [address] [place] [address], [place] [id number] May, [facility] [address] [id number] [address] [place] [address], [place] [id number] May, [facility] [address] [id number] [address] [place] [address], [place] [id number] Apr, [facility] [address] [id number] [address] [place] [id number] Apr, [facility] [address] [id number] [address] [place] [address], [place] [id number] Apr, [facility] [address] [id number] [address] [place] [id number] Apr, [facility] [address] [id number] [address] [place] [id number] Apr, [facility] [address] [id number] [address] [place] [id number] Apr, [facility] [address] [id number] [address] [place] [address], [place] [id number] Mar, [facility] [address] [id number] [address] [place] [id number] Mar, [facility] [address] [id number] [address] [place] [address], [place] [id number] Mar, [facility] [address] [id number] [address] [place] [address], [place] [id number] Mar, [facility] [address] [id number] [address] [place] [address], [place] [id number] Mar, [facility] [address] [id number] [address] [place] [address], [place] [id number] Mar, [facility] [address] [id number] [address] [place] [address], [place] [id number] Mar, [facility] [address] [id number] [address] [place] [address], [place] [id number] 30 Feb, 2012 [facility] [address] [id number] [address] [place] [address], [place] [id number] 30 Feb, 2013 [facility] [address] [id number] [address] [place] [address], [place] [id number] 27 Feb, 2013 [facility] [address] [id number] [address] [place] [address], [place] [id number] Feb, 2012 [facility] [address] [id number] [address] [place] [address], [place] [id number] Feb, [facility] [address] [id number] [address] [place] [address], [place] [id number] Feb, [facility] [address] [id number] [address] [place] [address], [place] [id number] Jan, [facility] [address] [id number] [address] [place] [address], [place] [id number] Jan, [facility] [address] [id number] [address] [place] [address], [place] [id number] Jan, [facility] [address] [id number] [address] [place] [address], [place] [id number] Jan, [facility] [address] [id number] [address] [place] [address], [place] [id number] Jan, [facility] [address] [id number] [address] [place] [address], [place] [id number] Jan, [facility] [address] [id number] [address] [place] [address], [place] [address] Jan, [facility] [address] [id number] [address] [place] [address], [place] [address] Jan, [facility] [address] [id number] [address] [place] [address], [place] [id number] Jan, [facility] [address] [id number] [address] [place] [address], [place] [address] Dec, [facility] [address] [id number] [address] [place] [address], [place] [address] Dec, [facility] [address] [id number] [address] [place] [address], [place] [id number] Dec, [facility] [address] [id number] [address] [place] [address], [place] [id number] Dec, [facility] [address] [id number] [address] [place] [address], [place] [id number] Dec, [facility] [address] [id number] [address] [place] [address], [place] [address] Dec, [facility] [address] [id number] [address] [place] [address], [place] [id number] Dec, [facility] [address] [id number] [address] [place] [address], [place] [id number] Dec, [facility] [address] [id number] [address] [place] [address], [place] [id number] Dec, [facility] [address] [id number] [address] [place] [address], [place] [address] Dec, [facility] [address] [id number] [address] [place] [address], [place] [id number] Dec, [facility] [address] [id number] [address] [place] [address], [place] [id number] Dec, [facility] [address] [id number] [address] [place] [address], [place] [id number] Dec, [facility] [address] [id number] [address] [place] [address], [place] [id number] Nov, [facility] [address] [id number] [address] [place] [address], [place] [id number] Nov, [facility] [address] [id number] [address] [place] [address], [place] [id number] Nov, [facility] [address] [id number] [address] [place] [address], [place] [id number] Nov, [facility] [address] [id number] [address] [place] [address], [place] [id number] October, [facility] [address] [id number] [address] [place] [address], [place] [id number] October, [facility] [address] [id number] [address] [place] [address], [place] [id number] October, [facility] [address] [id number] [address] [place] [address], [place] [id number] October, [facility] [address] [id number] [address] [place] [address], [place] [id number] October, [facility] [address] [id number] [address] [place] [address], [place] [id number] October, [facility] [address] [id number] [address] [place] [address], [place] [id number] Sep, [facility] [address] [id number] [address] [place] [address], [place] [id number] Sep, [facility] [address] [id number] [address] [place] [address], [place] [id number] Sep, [facility] [address] [id number] [address] [place] [address], [place] [id number] Sep, [facility] [address] [id number] [address] [place] [address], [place] [id number] Sep, [facility] [address] [id number] [facility] [place] [id number] 16 Sep, 2012 [facility] [address] [id number] [address] [place] [address], [place] [id number] 12 Sep, 2012 [facility] [address] [id number] [address] [place] [address], [place] [id number] Sep, [facility] [address] [id number] [address] [place] [address], [place] [id number] Sep, [facility] [address] [id number] [address] [place] [address], [place] [id number] Sep, [facility] [address] [id number] [address] [place] [address], [place] [id number] Sep, [facility] [address] [id number] [address] [place] [address], [place] [id number] Aug, [facility] [address] [id number] [address] [place] [address], [place] [id number] 25 Aug, 2012 [facility] [address] [id number] [address] [place] [address], [place] [id number] 25 Aug, 2012 [facility] [address] [id number] [address] [place] [address], [place] [id number] 21 Aug, 2012 [facility] [address] [id number] [address] [place] [address], [place] [id number] 19 Aug, 2012 [facility] [address] [id number] [address] [place] [address], [place] [id number] 18 Aug, 2012 [facility] [address] [id number] [address] [place] [address], [place] [id number] 17 Aug, 2012 [facility] [address] [id number] [address] [place] [address], [place] [id number] 15 Aug, 2012 [facility] [address] [id number] [address] [place] [address], [place] [id number] 15 Aug, 2012 [facility] [address] [id number] [address] [place] [address], [place] [id number] Aug, [facility] [address] [id number] [address] [place] [address], [place] [id number] Aug, [facility] [address] [id number] [address] [place] [address], [place] [id number] Aug, [facility] [address] [id number] [address] [place] [address], [place] [id number] Jul, [facility] [address] [id number] [address] [place] [address], [place] [id number] Jul, [facility] [address] [id number] [address] [place] [address], [place] [id number] Jul, [facility] [address] [id number] [address] [place] [address], [place] [id number] Jul, [facility] [address] [id number] [address] [place] [address], [place] [id number] Jul, [facility] [address] [id number] [address] [place] [address], [place] [id number] Jul, [facility] [address] [id number] [address] [place] [address], [place] [id number] Jul, [facility] [address] [id number] [address] [place] [address], [place] [id number] Jul, [facility] [address] [id number] [address] [place] [address], [place] [id number] Jul, [facility] [address] [id number] [address] [place] [address], [place] [id number] Jul, [facility] [address] [id number] [address] [place] [address], [place] [id number] May, [facility] [address] [place] [address] [id number] [place] [id number] May, [facility] [address] [id number] [address] [place] [address], [place] [id number] May, [facility] [address] [id number] [address] [place] [id number] May, [facility] [address] [facility] [id number] [address] [place] [id number] May, [facility] [address] [facility] [id number] [address] [place] [id number] Apr, [facility] [place] [address] [id number] [place] [id number] Apr, [facility] [address] [facility] [id number] [address] [place] [id number] Apr, [facility] [address] [facility] [id number] [address] [place] [phone] Mar, [facility] [place] [address] [id number] [place] [id number] Mar, [facility] [address] [facility] [id number] [address] [place] [phone] Mar, [facility] [address] [id number] [place] [id number] Feb, [facility] [address] [facility] [id number] [address] [place] [id number] Feb, [facility] [address] [facility] [id number] [address] [place] [phone] Feb, [facility] [place] [address] [id number] [place] [id number] Feb, [facility] [address] [id number] [place] [id number] Feb, [facility] [address] [id number] [place] [id number] Jan, [facility] [address] [id number] [address] [place] [address], [place] [id number] Jan, [facility] [place] [address] [id number] [place] [id number] Jan, [facility] [address] [id number] [place] [id number] Jan, [facility] [place] [address] [id number] [place] [id number] Jan, [facility] [address] [facility] [id number] [address] [place] [address], [place] [id number] Jan, [facility] [address] [facility] [id number] [address] [place] [address], [place] [id number] Jan, [facility] [address] [facility] [id number] [address] [place] [address], [place] [id number] Aug, [facility] [address] [id number] [place] [id number] Aug, [facility] [address] [facility] [id number] [address] [place] [address], [place] [id number] Jul, [facility] [address] [facility] [id number] [address] [place] [address], [place] [id number] Jul, [facility] [address] [facility] [id number] [address] [place] [address], [place] [id number] Jul, [facility] [address] [id number] [place] [id number] Jul, [facility] [address] [facility] [id number] [address] [place] [address], [place] [id number] Jul, [facility] [place] [address] [id number] [place] [id number] Jul, [facility] [address] [facility] [id number] [address] [place] [address], [place] [id number] Jul, [facility] [address] [id number] [place] [id number] Jul, [facility] [place] [address] [id number] [place] [id number] Jul, [facility] [address] [id number] [place] [id number] Jul, [facility] [address] [facility] [id number] [address] [place] [address], [place] [id number] May, [facility] [address] [id number] [address] [place] [id number] May, [facility] [address] [id number] [address] [place] [phone] May, [facility] [address] [id number] [address] [place] [id number] Apr, [facility] [address] [id number] [address] [place] [id number] Jan, [facility] [address] [id number] [address] [place] [id number] Jan, [facility] [address] [id number] [address] [place] [phone] Dec, [facility] [address] [id number] [address] [place] [id number] Dec, [facility] [address] [id number] [address] [place] [id number] May, [facility] [address] [id number] [address] [place] [id number] Mar, [facility] [address] [id number] [address] [place] [id number] Mar, [facility] [facility] [address] [id number] [address] [place] [id number] Jan, IMMUNIZATIONS No Known Immunizations SOCIAL HISTORY [...]
--- OUTSIDE RECORDS SUMMARY | 2020-01-28 12:52 | XMS REPORT ---
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 Active 433591377 Problem History of venous thromboembolism V12.51 Active 267682869 Problem Cellulitis of unspecified part of limb L03.119 Active 819165990 Problem Gastroesophageal reflux disease without esophagitis K21.9 Active 328358503 Problem History of pulmonary embolism Z86.711 Active 015690875 Problem Pseudotumor cerebri G93.2 Active 57529244 Problem History of DVT (deep vein thrombosis) Z86.718 Active 342994946 ALLERGIES No Information ENCOUNTERS Encounter Location Date Diagnosis [place] [id number] [facility] [id number] [address] [place] [phone] Apr, senior care (current) use of 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 Z79.01 [facility] [address] [facility] [id number] [address] [place] [phone] Apr, senior care 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.01 [facility] [address] [facility] [id number] [address] [place] [address] Apr, Cellulitis of unspecified pa rt of limb L03.119 ; Allergic contact dermatitis due to adhesives L23.1 and Chronic pain syndrome G89.4 [facility] [address] [facility] [id number] [address] [place] [address] Apr, [place] [address] [address] [place] [id number] [address] [place] [phone] Apr, 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 ; Cellulitis of unspecified part of limb L03.119 ; Chronic pain syndrome G89.4 and Anxiety F41.9 [facility] [address] [place] [id number] [address] [place] [phone] 16 Apr, 2015 [facility] [address] [place] [id number] [place] [phone] Apr, [place] [address] [place] [id number] [place] [phone] Mar, [place] [address] [address] Mar, [place] [address] [address] Mar, Sore throat J02.9 ; Gastroes ophageal reflux disease without esophagitis K21.9 ; Pseudotumor cerebri G93.2 ; Chronic pain syndrome G89.4 ; Choriocarcinoma C58 ; History of pulmonary embolism Z86.711 ; History of DVT (deep vein thrombosis) Z86.718 ; Anxiety F41.9 and Tachycardia R00.0 [place] [address] [address] Feb, Anxiety 300.00 and Chronic p ain 338.29 [place] [address] [place] [id number] [address] [place] [phone] Feb, [place] [address] [place] [id number] [address] [place] [phone] Feb, [place] [address] [address] Jan, 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 V58.61 and Dysuria 788.1 [place] [address] [place] [id number] [place] [address] Jan, Dysuria 788.1 [facility] [address] [place] [id number] [address] [place] [phone] Jan, Anxiety 300.00 and Chronic p ain 338.29 [facility] [address] [place] [id number] [place] [address] Jan, [facility] [address] [address] Jan, [facility] [address] [address] Jan, [place] [address] [address] Dec, Weakness 780.79 [place] [address] [address] Dec, senior care current use of ant icoagulant therapy V58.61 [place] [address] [address] Dec, Palpitations 785.1 ; Tremor 781.0 ; Weakness 780.79 ; senior care current use of anticoagulant therapy V58.61 and Yeast vaginitis 112.1 [place] [address] [place] [id number] [address] [place] [address] Dec, [place] [address] [address] Dec, Cervicalgia 723.1 ; Tachycar yoseph 785.0 ; Pseudotumor cerebri 348.2 and History of venous thromboembolism V12.51 [place] [address] [address] Nov, [place] [address] [address] Nov, [place] [address] [address] Nov, Tachycardia 785.0 ; Pseudotu mor cerebri 348.2 ; Anxiety 300.00 and History of venous thromboembolism V12.51 [facility] [address] [id number] [address] [place] [address] Nov, [facility] [address] [id number] [address] [place] [phone] 18 Nov, 2014 [facility] [address] [id number] [address] [place] [address] Nov, [facility] [address] [id number] [address] [place] [address] Nov, [facility] [address] [facility] [id number] [address] [place] [phone] Nov, [facility] [address] [facility] [id number] [address] [place] [phone] Nov, [facility] [address] [facility] [id number] [address] [place] [address] Nov, [facility] [address] [facility] [id number] [address] [place] [address] October, [facility] [address] [facility] [id number] [address] [place] [address] October, [facility] [address] [place] [id number] [address] [place] [phone] October, Pain in thoracic spine 724.1 and Tachycardia 785.0 [facility] [address] [id number] [address] [place] [address] October, [facility] [address] [id number] [address] [place] [phone] October, [facility] [address] [facility] [id number] [address] [place] [phone] 14 Sep, 2014 [facility] [address] [facility] [id number] [address] [place] [phone] Sep, [facility] [address] [id number] [facility] [place] [address] Aug, [facility] [address] [id number] [address] [place] [address], [place] [address] Aug, [facility] [address] [id number] [address] [place] [address], [place] [address] Aug, [facility] [address] [id number] [address] [place] [address], [place] [address] Aug, [facility] [address] [id number] [address] [place] [address], [place] [address] Aug, [facility] [address] [id number] [address] [place] [address], [place] [address] Aug, [facility] [address] [id number] [address] [place] [address], [place] [address] Aug, [facility] [address] [id number] [address] [place] [address], [place] [address] Aug, [facility] [address] [id number] [address] [place] [address], [place] [address] Aug, [facility] [address] [id number] [address] [place] [address], [place] [address] Aug, [facility] [address] [id number] [address] [place] [address], [place] [address] Aug, [facility] [address] [id number] [address] [place] [address], [place] [address] Aug, 2014 [facility] [address] [id number] [address] [place] [address], [place] [address] Jul, [facility] [address] [id number] [address] [place] [address], [place] [address] Jul, [facility] [address] [id number] [address] [place] [address], [place] [address] Jul, [facility] [address] [id number] [address] [place] [address], [place] [address] Jul, [facility] [address] [id number] [address] [place] [address], [place] [address] 23 Jul, 2014 [facility] [address] [id number] [address] [place] [address], [place] [address] 23 Jul, 2014 [facility] [address] [id number] [address] [place] [address], [place] [address] 23 Jul, 2014 [facility] [address] [id number] [address] [place] [address], [place] [address] 23 Jul, 2014 [facility] [address] [id number] [address] [place] [address], [place] [address] 20 Jul, 2014 [facility] [address] [id number] [address] [place] [address], [place] [address] 20 Jul, 2014 [facility] [address] [id number] [address] [place] [address], [place] [address] 19 Jul, 2014 [facility] [address] [id number] [address] [place] [address], [place] [address] 19 Jul, 2014 [facility] [address] [id number] [address] [place] [address], [place] [address] 17 Jul, 2014 [facility] [address] [id number] [address] [place] [address], [place] [address] 17 Jul, 2014 [facility] [address] [id number] [address] [place] [address], [place] [address] 16 Jul, 2014 [facility] [address] [id number] [address] [place] [address], [place] [address] 16 Jul, 2014 [facility] [address] [id number] [address] [place] [address], [place] [address] 16 Jul, 2014 [facility] [address] [id number] [address] [place] [address] 16 Jul, 2014 [facility] [address] [id number] [address] [place] [address] 13 Jul, 2014 [facility] [address] [id number] [address] [place] [address], [place] [address] Jul, [facility] [address] [id number] [address] [place] [address], [place] [address] Jul, [facility] [address] [id number] [address] [place] [address], [place] [address] Jul, 2014 [facility] [address] [id number] [address] [place] [address], [place] [address] Jul, 2014 [facility] [address] [id number] [address] [place] [address], [place] [address] Jul, [facility] [address] [id number] [address] [place] [address], [place] [address] Jul, [facility] [address] [id number] [address] [place] [address], [place] [address] Jul, [facility] [address] [id number] [address] [place] [address], [place] [address] Jul, [facility] [address] [id number] [address] [place] [address], [place] [address] Jul, [facility] [address] [id number] [address] [place] [address], [place] [address] Jul, [facility] [address] [id number] [address] [place] [address], [place] [address] Jul, [facility] [address] [id number] [address] [place] [address], [place] [address] Jun, [facility] [address] [id number] [address] [place] [address], [place] [address] Jun, [facility] [address] [id number] [address] [place] [address], [place] [address] Jun, [facility] [address] [id number] [address] [place] [address], [place] [address] Jun, [facility] [address] [id number] [address] [place] [address], [place] [address] Jun, [facility] [address] [id number] [address] [place] [address], [place] [address] Jun, [facility] [address] [id number] [address] [place] [address], [place] [address] Jun, [facility] [address] [id number] [address] [place] [address], [place] [address] Jun, [facility] [address] [id number] [address] [place] [address], [place] [address] Jun, [facility] [address] [id number] [address] [place] [address], [place] [address] Jun, [facility] [address] [id number] [address] [place] [address], [place] [address] Jun, [facility] [address] [id number] [address] [place] [address], [place] [address] Jun, [facility] [address] [id number] [address] [place] [address], [place] [address] Jun, [facility] [address] [id number] [address] [place] [address], [place] [address] Jun, [facility] [address] [id number] [address] [place] [address], [place] [address] Jun, [facility] [address] [id number] [address] [place] [address], [place] [address] Jun, [facility] [address] [id number] [address] [place] [address], [place] [address] Jun, [facility] [address] [id number] [address] [place] [address], [place] [address] Jun, [facility] [address] [id number] [address] [place] [address], [place] [address] Jun, [facility] [address] [id number] [address] [place] [address], [place] [address] Jun, [facility] [address] [id number] [address] [place] [address], [place] [address] May, [facility] [address] [id number] [address] [place] [address], [place] [address] May, [facility] [address] [id number] [address] [place] [address], [place] [address] May, [facility] [address] [id number] [address] [place] [address], [place] [address] May, [facility] [address] [id number] [address] [place] [address], [place] [address] May, [facility] [address] [id number] [address] [place] [address], [place] [address] May, [facility] [address] [id number] [address] [place] [address], [place] [address] May, [facility] [address] [id number] [address] [place] [address], [place] [address] May, [facility] [address] [id number] [address] [place] [address], [place] [address] May, [facility] [address] [id number] [address] [place] [address], [place] [address] May, [facility] [address] [id number] [address] [place] [address], [place] [address] May, [facility] [address] [id number] [address] [place] [address], [place] [address] 18 May, 2014 [facility] [address] [id number] [address] [place] [address], [place] [address] 18 May, 2014 [facility] [address] [id number] [address] [place] [address], [place] [address] 17 May, 2014 [facility] [address] [id number] [address] [place] [address], [place] [address] 16 May, 2014 [facility] [address] [id number] [address] [place] [address], [place] [address] 16 May, 2014 [facility] [address] [id number] [address] [place] [address], [place] [address] 15 May, 2014 [facility] [address] [id number] [address] [place] [address], [place] [address] 15 May, 2014 [facility] [address] [id number] [address] [place] [address], [place] [address] May, [facility] [address] [id number] [address] [place] [address], [place] [address] May, [facility] [address] [id number] [address] [place] [address], [place] [address] May, [facility] [address] [id number] [address] [place] [address], [place] [address] May, [facility] [address] [id number] [address] [place] [address], [place] [address] May, [facility] [address] [id number] [address] [place] [address], [place] [address] May, [facility] [address] [id number] [address] [place] [address], [place] [address] May, [facility] [address] [id number] [address] [place] [address], [place] [address] May, [facility] [address] [id number] [address] [place] [address], [place] [address] May, [facility] [address] [id number] [address] [place] [address], [place] [address] May, [facility] [address] [id number] [address] [place] [address], [place] [address] May, [facility] [address] [id number] [address] [place] [address], [place] [address] May, [facility] [address] [id number] [address] [place] [address], [place] [address] May, [facility] [address] [id number] [address] [place] [address], [place] [address] May, [facility] [address] [id number] [address] [place] [address], [place] [address] May, [facility] [address] [id number] [address] [place] [address], [place] [address] May, [facility] [address] [id number] [address] [place] [address], [place] [address] Apr, [facility] [address] [id number] [address] [place] [address], [place] [address] Apr, [facility] [address] [id number] [address] [place] [address], [place] [address] Apr, [facility] [address] [id number] [address] [place] [address], [place] [address] Apr, [facility] [address] [id number] [address] [place] [address], [place] [address] Apr, [facility] [address] [id number] [address] [place] [address], [place] [address] Apr, [facility] [address] [id number] [address] [place] [address], [place] [address] Apr, [facility] [address] [id number] [address] [place] [address], [place] [address] Apr, [facility] [address] [id number] [address] [place] [address], [place] [address] Apr, [facility] [address] [id number] [address] [place] [address], [place] [address] Apr, [facility] [address] [id number] [address] [place] [address], [place] [address] Mar, [facility] [address] [id number] [address] [place] [address], [place] [address] Mar, [facility] [address] [id number] [address] [place] [address] [address] Mar, [facility] [address] [id number] [address] [place] [address], [place] [address] 31 Mar, 2013 [facility] [address] [id number] [address] [place] [address], [place] [address] Mar, [facility] [address] [id number] [address] [place] [address], [place] [address] 30 Mar, 2014 [facility] [address] [id number] [address] [place] [address], [place] [address] Mar, [facility] [address] [id number] [address] [place] [address], [place] [address] Mar, [facility] [address] [id number] [address] [place] [address], [place] [address] Mar, [facility] [address] [id number] [address] [place] [address], [place] [address] Mar, [facility] [address] [id number] [address] [place] [id number] Mar, [facility] [address] [id number] [address] [place] [id number] Mar, [facility] [address] [id number] [address] [place] [id number] Mar, [facility] [address] [id number] [address] [place] [id number] Mar, 2013 [facility] [address] [id number] [address] [place] [id number] Mar, 2013 [facility] [address] [id number] [address] [place] [id number] Mar, [facility] [address] [id number] [address] [place] [id number] Mar, [facility] [address] [id number] [address] [place] [id number] Mar, 2013 [facility] [address] [id number] [address] [place] [address], [place] [address] 02 Mar, 2013 [facility] [address] [id number] [address] [place] [address], [place] [address] 02 Mar, 2013 [facility] [address] [id number] [address] [place] [address], [place] [address] 05 Sep, 2013 [facility] [address] [id number] [address] [place] [address], [place] [address] 05 Sep, 2013 [facility] [address] [id number] [address] [place] [address], [place] [address] 04 Sep, 2013 [facility] [address] [id number] [address] [place] [address], [place] [address] 04 Sep, 2013 [facility] [address] [id number] [address] [place] [address], [place] [address] 03 Feb, 2013 [facility] [address] [id number] [address] [place] [address], [place] [address] 03 Feb, 2013 [facility] [address] [id number] [address] [place] [address], [place] [address] 02 Feb, 2013 [facility] [address] [id number] [address] [place] [address], [place] [address] Feb, 2013 [facility] [address] [id number] [address] [place] [address], [place] [address] 02 Feb, 2013 [facility] [address] [id number] [address] [place] [address], [place] [address] Feb, 2013 [facility] [address] [id number] [address] [place] [address], [place] [address] Jan, [facility] [address] [id number] [address] [place] [address], [place] [address] Jan, [facility] [address] [id number] [address] [place] [address], [place] [address] Jan, [facility] [address] [id number] [address] [place] [address], [place] [address] Jan, [facility] [address] [id number] [facility] [place] [address] Jan, [facility] [address] [id number] [address] [place] [address], [place] [address] Jan, [facility] [address] [id number] [address] [place] [address], [place] [address] Jan, [facility] [address] [id number] [address] [place] [address], [place] [address] Jan, [facility] [address] [id number] [address] [place] [address], [place] [address] Jan, [facility] [address] [id number] [address] [place] [address], [place] [address] Jan, [facility] [address] [id number] [address] [place] [address], [place] [address] Jan, [facility] [address] [id number] [address] [place] [address], [place] [address] Jan, [facility] [address] [id number] [address] [place] [address], [place] [address] Dec, [facility] [address] [id number] [address] [place] [address], [place] [address] Dec, [facility] [address] [id number] [address] [place] [address], [place] [address] Dec, [facility] [address] [id number] [address] [place] [address], [place] [address] Dec, [facility] [address] [id number] [address] [place] [address], [place] [address] Dec, [facility] [address] [id number] [address] [place] [address], [place] [address] Dec, [facility] [address] [id number] [address] [place] [address], [place] [address] Dec, [facility] [address] [id number] [address] [place] [address], [place] [address] Dec, [facility] [address] [id number] [facility] [place] [address] Dec, [facility] [address] [id number] [address] [place] [address], [place] [address] Dec, [facility] [address] [id number] [address] [place] [address], [place] [address] Dec, [facility] [address] [id number] [address] [place] [address], [place] [address] Dec, [facility] [address] [id number] [address] [place] [address], [place] [address] Nov, [facility] [address] [id number] [address] [place] [address], [place] [address] Nov, [facility] [address] [id number] [address] [place] [address], [place] [address] Nov, [facility] [address] [id number] [address] [place] [address], [place] [address] Nov, [facility] [address] [id number] [address] [place] [address], [place] [address] Nov, [facility] [address] [id number] [address] [place] [address], [place] [address] Nov, [facility] [address] [id number] [address] [place] [address], [place] [address] Nov, [facility] [address] [id number] [address] [place] [address], [place] [address] Nov, [facility] [address] [id number] [address] [place] [address], [place] [address] Nov, [facility] [address] [id number] [address] [place] [address], [place] [address] Nov, [facility] [address] [id number] [address] [place] [address], [place] [address] Nov, [facility] [address] [id number] [facility] [place] [address] Nov, [facility] [address] [id number] [address] [place] [address], [place] [address] Nov, [facility] [address] [id number] [address] [place] [address], [place] [address] Nov, [facility] [address] [id number] [address] [place] [address], [place] [address] October, [facility] [address] [id number] [address] [place] [address], [place] [address] October, [facility] [address] [id number] [address] [place] [address], [place] [address] October, [facility] [address] [id number] [address] [place] [address], [place] [address] October, [facility] [address] [id number] [address] [place] [address], [place] [address] October, [facility] [address] [id number] [address] [place] [address], [place] [address] October, [facility] [address] [id number] [address] [place] [address], [place] [address] October, [facility] [address] [id number] [address] [place] [address], [place] [address] October, [facility] [address] [id number] [address] [place] [address], [place] [address] October, [facility] [address] [id number] [address] [place] [address], [place] [address] October, [facility] [address] [id number] [address] [place] [address], [place] [address] October, [facility] [address] [id number] [address] [place] [address], [place] [address] October, [facility] [address] [id number] [address] [place] [address], [place] [address] Sep, [facility] [address] [id number] [facility] [place] [address] Sep, [facility] [address] [id number] [address] [place] [address], [place] [address] Sep, [facility] [address] [id number] [facility] [place] [address] Sep, [facility] [address] [id number] [address] [place] [address], [place] [address] Sep, [facility] [address] [id number] [address] [place] [address], [place] [address] Sep, [facility] [address] [id number] [address] [place] [address], [place] [address] Aug, [facility] [address] [id number] [address] [place] [address], [place] [address] Aug, [facility] [address] [id number] [address] [place] [address], [place] [address] Aug, [facility] [address] [id number] [address] [place] [address], [place] [address] Aug, [facility] [address] [id number] [address] [place] [address], [place] [address] Aug, [facility] [address] [id number] [address] [place] [address], [place] [address] Aug, [facility] [address] [id number] [address] [place] [address], [place] [address] Jul, [facility] [address] [id number] [address] [place] [address], [place] [address] Jul, [facility] [address] [id number] [address] [place] [address], [place] [address] Jul, [facility] [address] [id number] [address] [place] [address], [place] [address] Jul, [facility] [address] [id number] [address] [place] [address], [place] [address] 13 Jul, 2013 [facility] [address] [id number] [address] [place] [address], [place] [address] Jul, [facility] [address] [id number] [address] [place] [address], [place] [address] Jul, [facility] [address] [id number] [address] [place] [address], [place] [address] Jul, [facility] [address] [id number] [address] [place] [address], [place] [address] Jul, [facility] [address] [id number] [address] [place] [address], [place] [address] Jul, [facility] [address] [id number] [address] [place] [address], [place] [address] Jun, [facility] [address] [id number] [address] [place] [address], [place] [address] Jun, [facility] [address] [id number] [address] [place] [address], [place] [address] Jun, [facility] [address] [id number] [address] [place] [address], [place] [address] Jun, [facility] [address] [id number] [address] [place] [address], [place] [address] Jun, [facility] [address] [id number] [address] [place] [address], [place] [address] Jun, [facility] [address] [id number] [address] [place] [address], [place] [address] Jun, [facility] [address] [id number] [address] [place] [address], [place] [address] Jun, [facility] [address] [id number] [address] [place] [address], [place] [address] May, [facility] [address] [id number] [address] [place] [address], [place] [address] May, [facility] [address] [id number] [address] [place] [address], [place] [address] May, [facility] [address] [id number] [address] [place] [address], [place] [address] May, [facility] [address] [id number] [address] [place] [address], [place] [address] May, [facility] [address] [id number] [address] [place] [address], [place] [address] May, [facility] [address] [id number] [address] [place] [address], [place] [address] May, [facility] [address] [id number] [address] [place] [address], [place] [address] May, [facility] [address] [id number] [address] [place] [address], [place] [address] Apr, [facility] [address] [id number] [address] [place] [address] Apr, [facility] [address] [id number] [address] [place] [address], [place] [address] Apr, [facility] [address] [id number] [address] [place] [address] Apr, [facility] [address] [id number] [address] [place] [address] Apr, [facility] [address] [id number] [address] [place] [address] Apr, [facility] [address] [id number] [address] [place] [address], [place] [address] Mar, [facility] [address] [id number] [address] [place] [address] Mar, [facility] [address] [id number] [address] [place] [address], [place] [address] Mar, [facility] [address] [id number] [address] [place] [address], [place] [address] Mar, [facility] [address] [id number] [address] [place] [address], [place] [address] Mar, [facility] [address] [id number] [address] [place] [address], [place] [address] Mar, [facility] [address] [id number] [address] [place] [address], [place] [address] Mar, [facility] [address] [id number] [address] [place] [address], [place] [address] 30 Feb, 2012 [facility] [address] [id number] [address] [place] [address], [place] [address] 30 Feb, 2013 [facility] [address] [id number] [address] [place] [address], [place] [address] 27 Feb, 2013 [facility] [address] [id number] [address] [place] [address], [place] [address] Feb, 2012 [facility] [address] [id number] [address] [place] [address], [place] [address] Feb, [facility] [address] [id number] [address] [place] [address], [place] [address] Feb, [facility] [address] [id number] [address] [place] [address], [place] [address] Jan, [facility] [address] [id number] [address] [place] [address], [place] [address] Jan, [facility] [address] [id number] [address] [place] [address], [place] [address] Jan, [facility] [address] [id number] [address] [place] [address], [place] [address] Jan, [facility] [address] [id number] [address] [place] [address], [place] [address] Jan, [facility] [address] [id number] [address] [place] [address], [place] [address] Jan, [facility] [address] [id number] [address] [place] [address], [place] [address] Jan, [facility] [address] [id number] [address] [place] [address], [place] [address] Jan, [facility] [address] [id number] [address] [place] [address], [place] [address] Jan, [facility] [address] [id number] [address] [place] [address], [place] [address] Dec, [facility] [address] [id number] [address] [place] [address], [place] [address] Dec, [facility] [address] [id number] [address] [place] [address], [place] [address] Dec, [facility] [address] [id number] [address] [place] [address], [place] [address] Dec, [facility] [address] [id number] [address] [place] [address], [place] [address] Dec, [facility] [address] [id number] [address] [place] [address], [place] [address] Dec, [facility] [address] [id number] [address] [place] [address], [place] [address] Dec, [facility] [address] [id number] [address] [place] [address], [place] [address] Dec, [facility] [address] [id number] [address] [place] [address], [place] [address] Dec, [facility] [address] [id number] [address] [place] [address], [place] [address] Dec, [facility] [address] [id number] [address] [place] [address], [place] [address] Dec, [facility] [address] [id number] [address] [place] [address], [place] [address] Dec, [facility] [address] [id number] [address] [place] [address], [place] [address] Dec, [facility] [address] [id number] [address] [place] [address], [place] [address] Nov, [facility] [address] [id number] [address] [place] [address], [place] [address] Nov, [facility] [address] [id number] [address] [place] [address], [place] [address] Nov, [facility] [address] [id number] [address] [place] [address], [place] [address] Nov, [facility] [address] [id number] [address] [place] [address], [place] [address] October, [facility] [address] [id number] [address] [place] [address], [place] [address] October, [facility] [address] [id number] [address] [place] [address], [place] [address] October, [facility] [address] [id number] [address] [place] [address], [place] [address] October, [facility] [address] [id number] [address] [place] [address], [place] [address] October, [facility] [address] [id number] [address] [place] [address], [place] [address] October, [facility] [address] [id number] [address] [place] [address], [place] [address] Sep, [facility] [address] [id number] [address] [place] [address], [place] [address] Sep, [facility] [address] [id number] [address] [place] [address], [place] [address] Sep, [facility] [address] [id number] [address] [place] [address], [place] [address] Sep, [facility] [address] [id number] [address] [place] [address], [place] [address] Sep, [facility] [address] [id number] [facility] [place] [address] 16 Sep, 2012 [facility] [address] [id number] [address] [place] [address], [place] [address] 12 Sep, [address] [facility] [address] [id number] [address] [place] [address], [place] [address] Sep, [facility] [address] [id number] [address] [place] [address], [place] [address] Sep, [facility] [address] [id number] [address] [place] [address], [place] [address] Sep, [facility] [address] [id number] [address] [place] [address], [place] [address] Sep, [facility] [address] [id number] [address] [place] [address], [place] [address] Aug, [facility] [address] [id number] [address] [place] [address], [place] [address] 25 Aug, [address] [facility] [address] [id number] [address] [place] [address], [place] [address] 25 Aug, [address] [facility] [address] [id number] [address] [place] [address], [place] [address] 21 Aug, [address] [facility] [address] [id number] [address] [place] [address], [place] [address] 19 Aug, [address] [facility] [address] [id number] [address] [place] [address], [place] [address] 18 Aug, [address] [facility] [address] [id number] [address] [place] [address], [place] [address] 17 Aug, 2012 [facility] [address] [id number] [address] [place] [address], [place] [address] 15 Aug, [address] [facility] [address] [id number] [address] [place] [address], [place] [address] 15 Aug, [address] [facility] [address] [id number] [address] [place] [address], [place] [address] Aug, [facility] [address] [id number] [address] [place] [address], [place] [address] Aug, [facility] [address] [id number] [address] [place] [address], [place] [address] Aug, [facility] [address] [id number] [address] [place] [address], [place] [address] Jul, [facility] [address] [id number] [address] [place] [address], [place] [address] Jul, [facility] [address] [id number] [address] [place] [address], [place] [address] Jul, [facility] [address] [id number] [address] [place] [address], [place] [address] Jul, [facility] [address] [id number] [address] [place] [address], [place] [address] Jul, [facility] [address] [id number] [address] [place] [address], [place] [address] Jul, [facility] [address] [id number] [address] [place] [address], [place] [address] Jul, [facility] [address] [id number] [address] [place] [address], [place] [address] Jul, [facility] [address] [id number] [address] [place] [address], [place] [address] Jul, [facility] [address] [id number] [address] [place] [address], [place] [address] Jul, [facility] [address] [id number] [address] [place] [address], [place] [address] May, [facility] [address] [id number] [id number] May, [facility] [address] [id number] [address] [place] [address], [place] [address] May, [facility] [address] [id number] [address] [place] [id number] May, [facility] [address] [facility] [id number] [address] [place] [id number] May, [facility] [address] [facility] [id number] [address] [place] [id number] Apr, [facility] [place] [address] [id number] [place] [id number] Apr, [facility] [address] [facility] [id number] [address] [place] [id number] Apr, [facility] [address] [facility] [id number] [address] [place] [id number] Mar, [facility] [place] [address] [id number] [place] [id number] Mar, [facility] [address] [facility] [id number] [address] [place] [id number] Mar, [facility] [place] [address] [id number] [place] [id number] Feb, [facility] [address] [facility] [id number] [address] [place] [id number] Feb, [facility] [address] [facility] [id number] [address] [place] [id number] Feb, [facility] [place] [address] [id number] [place] [id number] Feb, [facility] [place] [address] [id number] [place] [id number] Feb, [facility] [place] [address] [id number] [place] [id number] Jan, [facility] [address] [id number] [address] [place] [address], [place] [address] Jan, [facility] [place] [address] [id number] [place] [id number] Jan, [facility] [place] [address] [id number] [place] [id number] Jan, [facility] [place] [address] [id number] [place] [id number] Jan, [facility] [address] [facility] [id number] [address] [place] [address], [place] [id number] Jan, [facility] [address] [facility] [id number] [address] [place] [address], [place] [address] Jan, [facility] [address] [facility] [id number] [address] [place] [address], [place] [address] Aug, [facility] [place] [address] [id number] [place] [id number] Aug, [facility] [address] [facility] [id number] [address] [place] [address], [place] [address] Jul, [facility] [address] [facility] [id number] [address] [place] [address], [place] [id number] Jul, [facility] [address] [facility] [id number] [address] [place] [address], [place] [address] Jul, [facility] [place] [address] [id number] [place] [id number] Jul, [facility] [address] [facility] [id number] [address] [place] [address], [place] [address] Jul, [facility] [place] [address] [id number] [place] [id number] Jul, [facility] [address] [facility] [id number] [address] [place] [address], [place] [address] Jul, [facility] [place] [address] [id number] [place] [id number] Jul, [facility] [place] [address] [id number] [place] [id number] Jul, [facility] [place] [address] [id number] [place] [id number] Jul, [facility] [address] [facility] [id number] [address] [place] [address], [place] [address] May, [facility] [address] [id number] [address] [place] [id number] May, [facility] [address] [id number] [address] [place] [id number] May, [facility] [address] [id number] [address] [place] [id number] Apr, [facility] [address] [id number] [address] [place] [id number] Jan, [facility] [address] [id number] [address] [place] [id number] Jan, [facility] [address] [id number] [address] [place] [id number] Dec, [facility] [address] [id number] [address] [place] [id number] Dec, [facility] [address] [id number] [address] [place] [id number] May, [facility] [address] [id number] [address] [place] [id number] Mar, [facility] [address] [id number] [address] [place] [id number] Mar, [facility] [address] [id number] [address] [place] [id number] Jan, IMMUNIZATIONS No Known Immunizations SOCIAL HISTORY [...]
--- OUTSIDE RECORDS SUMMARY | 2020-01-28 12:52 | XMS REPORT ---
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 Active 090567034 Problem History of venous thromboembolism V12.51 Active 703644589 Problem Cellulitis of unspecified part of limb L03.119 Active 848805488 Problem Gastroesophageal reflux disease without esophagitis K21.9 Active 166530038 Problem History of pulmonary embolism Z86.711 Active 671853794 Problem Pseudotumor cerebri G93.2 Active 82882817 Problem History of DVT (deep vein thrombosis) Z86.718 Active 323023693 ALLERGIES No Information ENCOUNTERS Encounter Location Date Diagnosis [place] [id number] [facility] [id number] [address] [place] [address] Apr, prison (current) use of 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 Z79.01 [facility] [address] [facility] [id number] [address] [place] [address] Apr, prison 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.01 [facility] [address] [facility] [id number] [address] [place] [address] Apr, Cellulitis of unspecified pa rt of limb L03.119 ; Allergic contact dermatitis due to adhesives L23.1 and Chronic pain syndrome G89.4 [facility] [address] [facility] [id number] [address] [place] [address] Apr, [place] [address] [place] [id number] [address] [place] [address] Apr, terminal clerk 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.01 ; Cellulitis of unspecified part of limb L03.119 ; Chronic pain syndrome G89.4 and Anxiety F41.9 [facility] [address] [place] [id number] [address] [place] [address] 16 Apr, 2015 [facility] [address] [place] [id number] [place] [address] Apr, [place] [address] [place] [id number] [place] [address] Mar, [place] [address] [address] Mar, [place] [address] [address] Mar, Sore throat J02.9 ; Gastroes ophageal reflux disease without esophagitis K21.9 ; Pseudotumor cerebri G93.2 ; Chronic pain syndrome G89.4 ; Choriocarcinoma C58 ; History of pulmonary embolism Z86.711 ; History of DVT (deep vein thrombosis) Z86.718 ; Anxiety F41.9 and Tachycardia R00.0 [place] [address] [address] Feb, Anxiety 300.00 and Chronic p ain 338.29 [place] [address] [place] [id number] [address] [place] [address] Feb, [place] [address] [place] [id number] [address] [place] [address] Feb, [place] [address] [address] Jan, terminal clerk current use of ant icoagulant therapy V58.61 and Dysuria 788.1 [place] [address] [place] [id number] [place] [address] Jan, Dysuria 788.1 [facility] [address] [place] [id number] [address] [place] [address] Jan, Anxiety 300.00 and Chronic p ain 338.29 [facility] [address] [place] [id number] [place] [address] Jan, [facility] [address] [address] Jan, [facility] [address] [address] Jan, [place] [address] [address] Dec, Weakness 780.79 [place] [address] [address] Dec, prison current use of ant icoagulant therapy V58.61 [place] [address] [address] Dec, Palpitations 785.1 ; Tremor 781.0 ; Weakness 780.79 ; prison current use of anticoagulant therapy V58.61 and Yeast vaginitis 112.1 [place] [address] [place] [id number] [address] [place] [address] Dec, [place] [address] [address] Dec, Cervicalgia 723.1 ; Tachycar yoseph 785.0 ; Pseudotumor cerebri 348.2 and History of venous thromboembolism V12.51 [place] [address] [address] Nov, [place] [address] [address] Nov, [place] [address] [address] Nov, Tachycardia 785.0 ; Pseudotu mor cerebri 348.2 ; Anxiety 300.00 and History of venous thromboembolism V12.51 [facility] [address] [id number] [address] [place] [address] Nov, [facility] [address] [id number] [address] [place] [address] 18 Nov, 2014 [facility] [address] [id number] [address] [place] [address] Nov, [facility] [address] [id number] [address] [place] [address] Nov, [facility] [address] [facility] [id number] [address] [place] [address] Nov, [facility] [address] [facility] [id number] [address] [place] [address] Nov, [facility] [address] [facility] [id number] [address] [place] [address] Nov, [facility] [address] [facility] [id number] [address] [place] [address] October, [facility] [address] [facility] [id number] [address] [place] [address] October, [facility] [address] [place] [id number] [address] [place] [address] October, Pain in thoracic spine 724.1 and Tachycardia 785.0 [facility] [address] [id number] [address] [place] [address] October, [facility] [address] [id number] [address] [place] [address] October, [facility] [address] [facility] [id number] [address] [place] [address] 14 Sep, 2014 [facility] [address] [facility] [id number] [address] [place] [address] Sep, [facility] [address] [id number] [facility] [place] [address] Aug, [facility] [address] [id number] [address] [place] [address], [place] [address] Aug, [facility] [address] [id number] [address] [place] [address], [place] [address] Aug, [facility] [address] [id number] [address] [place] [address], [place] [address] Aug, [facility] [address] [id number] [address] [place] [address], [place] [address] Aug, [facility] [address] [id number] [address] [place] [address], [place] [address] Aug, [facility] [address] [id number] [address] [place] [address], [place] [address] Aug, [facility] [address] [id number] [address] [place] [address], [place] [address] Aug, [facility] [address] [id number] [address] [place] [address], [place] [address] Aug, [facility] [address] [id number] [address] [place] [address], [place] [address] Aug, [facility] [address] [id number] [address] [place] [address], [place] [address] Aug, [facility] [address] [id number] [address] [place] [address], [place] [address] Aug, 2014 [facility] [address] [id number] [address] [place] [address], [place] [address] Jul, [facility] [address] [id number] [address] [place] [address], [place] [address] Jul, [facility] [address] [id number] [address] [place] [address], [place] [address] Jul, [facility] [address] [id number] [address] [place] [address], [place] [address] Jul, [facility] [address] [id number] [address] [place] [address], [place] [address] 23 Jul, 2014 [facility] [address] [id number] [address] [place] [address], [place] [address] 23 Jul, 2014 [facility] [address] [id number] [address] [place] [address], [place] [address] 23 Jul, 2014 [facility] [address] [id number] [address] [place] [address], [place] [address] 23 Jul, 2014 [facility] [address] [id number] [address] [place] [address], [place] [address] 20 Jul, 2014 [facility] [address] [id number] [address] [place] [address], [place] [address] 20 Jul, 2014 [facility] [address] [id number] [address] [place] [address], [place] [address] 19 Jul, 2014 [facility] [address] [id number] [address] [place] [address], [place] [address] 19 Jul, 2014 [facility] [address] [id number] [address] [place] [address], [place] [address] 17 Jul, 2014 [facility] [address] [id number] [address] [place] [address], [place] [address] 17 Jul, 2014 [facility] [address] [id number] [address] [place] [address], [place] [address] 16 Jul, 2014 [facility] [address] [id number] [address] [place] [address], [place] [address] 16 Jul, 2014 [facility] [address] [id number] [address] [place] [address], [place] [address] 16 Jul, 2014 [facility] [address] [id number] [address] [place] [address] 16 Jul, 2014 [facility] [address] [id number] [address] [place] [address] 13 Jul, 2014 [facility] [address] [id number] [address] [place] [address], [place] [address] Jul, [facility] [address] [id number] [address] [place] [address], [place] [address] Jul, [facility] [address] [id number] [address] [place] [address], [place] [address] Jul, 2014 [facility] [address] [id number] [address] [place] [address], [place] [address] Jul, 2014 [facility] [address] [id number] [address] [place] [address], [place] [address] Jul, [facility] [address] [id number] [address] [place] [address], [place] [address] Jul, [facility] [address] [id number] [address] [place] [address], [place] [address] Jul, [facility] [address] [id number] [address] [place] [address], [place] [address] Jul, [facility] [address] [id number] [address] [place] [address], [place] [address] Jul, [facility] [address] [id number] [address] [place] [address], [place] [address] Jul, [facility] [address] [id number] [address] [place] [address], [place] [address] Jul, [facility] [address] [id number] [address] [place] [address], [place] [address] Jun, [facility] [address] [id number] [address] [place] [address], [place] [address] Jun, [facility] [address] [id number] [address] [place] [address], [place] [address] Jun, [facility] [address] [id number] [address] [place] [address], [place] [address] Jun, [facility] [address] [id number] [address] [place] [address], [place] [address] Jun, [facility] [address] [id number] [address] [place] [address], [place] [address] Jun, [facility] [address] [id number] [address] [place] [address], [place] [address] Jun, [facility] [address] [id number] [address] [place] [address], [place] [address] Jun, [facility] [address] [id number] [address] [place] [address], [place] [address] Jun, [facility] [address] [id number] [address] [place] [address], [place] [address] Jun, [facility] [address] [id number] [address] [place] [address], [place] [address] Jun, [facility] [address] [id number] [address] [place] [address], [place] [address] Jun, [facility] [address] [id number] [address] [place] [address], [place] [address] Jun, [facility] [address] [id number] [address] [place] [address], [place] [address] Jun, [facility] [address] [id number] [address] [place] [address], [place] [address] Jun, [facility] [address] [id number] [address] [place] [address], [place] [address] Jun, [facility] [address] [id number] [address] [place] [address], [place] [address] Jun, [facility] [address] [id number] [address] [place] [address], [place] [address] Jun, [facility] [address] [id number] [address] [place] [address], [place] [address] Jun, [facility] [address] [id number] [address] [place] [address], [place] [address] Jun, [facility] [address] [id number] [address] [place] [address], [place] [address] May, [facility] [address] [id number] [address] [place] [address], [place] [address] May, [facility] [address] [id number] [address] [place] [address], [place] [address] May, [facility] [address] [id number] [address] [place] [address], [place] [address] May, [facility] [address] [id number] [address] [place] [address], [place] [address] May, [facility] [address] [id number] [address] [place] [address], [place] [address] May, [facility] [address] [id number] [address] [place] [address], [place] [address] May, [facility] [address] [id number] [address] [place] [address], [place] [address] May, [facility] [address] [id number] [address] [place] [address], [place] [address] May, [facility] [address] [id number] [address] [place] [address], [place] [address] May, [facility] [address] [id number] [address] [place] [address], [place] [address] May, [facility] [address] [id number] [address] [place] [address], [place] [address] 18 May, 2014 [facility] [address] [id number] [address] [place] [address], [place] [address] 18 May, 2014 [facility] [address] [id number] [address] [place] [address], [place] [address] 17 May, 2014 [facility] [address] [id number] [address] [place] [address], [place] [address] 16 May, 2014 [facility] [address] [id number] [address] [place] [address], [place] [address] 16 May, 2014 [facility] [address] [id number] [address] [place] [address], [place] [address] 15 May, 2014 [facility] [address] [id number] [address] [place] [address], [place] [address] 15 May, 2014 [facility] [address] [id number] [address] [place] [address], [place] [address] May, [facility] [address] [id number] [address] [place] [address], [place] [address] May, [facility] [address] [id number] [address] [place] [address], [place] [address] May, [facility] [address] [id number] [address] [place] [address], [place] [address] May, [facility] [address] [id number] [address] [place] [address], [place] [address] May, [facility] [address] [id number] [address] [place] [address], [place] [address] May, [facility] [address] [id number] [address] [place] [address], [place] [address] May, [facility] [address] [id number] [address] [place] [address], [place] [address] May, [facility] [address] [id number] [address] [place] [address], [place] [address] May, [facility] [address] [id number] [address] [place] [address], [place] [address] May, [facility] [address] [id number] [address] [place] [address], [place] [address] May, [facility] [address] [id number] [address] [place] [address], [place] [address] May, [facility] [address] [id number] [address] [place] [address], [place] [address] May, [facility] [address] [id number] [address] [place] [address], [place] [address] May, [facility] [address] [id number] [address] [place] [address], [place] [address] May, [facility] [address] [id number] [address] [place] [address], [place] [address] May, [facility] [address] [id number] [address] [place] [address], [place] [address] Apr, [facility] [address] [id number] [address] [place] [address], [place] [address] Apr, [facility] [address] [id number] [address] [place] [address], [place] [address] Apr, [facility] [address] [id number] [address] [place] [address], [place] [address] Apr, [facility] [address] [id number] [address] [place] [address], [place] [address] Apr, [facility] [address] [id number] [address] [place] [address], [place] [address] Apr, [facility] [address] [id number] [address] [place] [address], [place] [address] Apr, [facility] [address] [id number] [address] [place] [address], [place] [address] Apr, [facility] [address] [id number] [address] [place] [address], [place] [address] Apr, [facility] [address] [id number] [address] [place] [address], [place] [address] Apr, [facility] [address] [id number] [address] [place] [address], [place] [address] Mar, [facility] [address] [id number] [address] [place] [address], [place] [address] Mar, [facility] [address] [id number] [address] [place] [address] [address] Mar, [facility] [address] [id number] [address] [place] [address], [place] [address] 31 Mar, 2013 [facility] [address] [id number] [address] [place] [address], [place] [address] Mar, [facility] [address] [id number] [address] [place] [address], [place] [address] 30 Mar, 2014 [facility] [address] [id number] [address] [place] [address], [place] [address] Mar, [facility] [address] [id number] [address] [place] [address], [place] [address] Mar, [facility] [address] [id number] [address] [place] [address], [place] [address] Mar, [facility] [address] [id number] [address] [place] [address], [place] [address] Mar, [facility] [address] [id number] [address] [place] [id number] Mar, [facility] [address] [id number] [address] [place] [id number] Mar, [facility] [address] [id number] [address] [place] [id number] Mar, [facility] [address] [id number] [address] [place] [id number] Mar, 2013 [facility] [address] [id number] [address] [place] [id number] Mar, 2013 [facility] [address] [id number] [address] [place] [id number] Mar, [facility] [address] [id number] [address] [place] [id number] Mar, [facility] [address] [id number] [address] [place] [id number] Mar, 2013 [facility] [address] [id number] [address] [place] [address], [place] [address] 02 Mar, 2013 [facility] [address] [id number] [address] [place] [address], [place] [address] 02 Mar, 2013 [facility] [address] [id number] [address] [place] [address], [place] [address] 05 Sep, 2013 [facility] [address] [id number] [address] [place] [address], [place] [address] 05 Sep, 2013 [facility] [address] [id number] [address] [place] [address], [place] [address] 04 Sep, 2013 [facility] [address] [id number] [address] [place] [address], [place] [address] 04 Sep, 2013 [facility] [address] [id number] [address] [place] [address], [place] [address] 03 Feb, 2013 [facility] [address] [id number] [address] [place] [address], [place] [address] 03 Feb, 2013 [facility] [address] [id number] [address] [place] [address], [place] [address] 02 Feb, 2013 [facility] [address] [id number] [address] [place] [address], [place] [address] Feb, 2013 [facility] [address] [id number] [address] [place] [address], [place] [address] 02 Feb, 2013 [facility] [address] [id number] [address] [place] [address], [place] [address] Feb, 2013 [facility] [address] [id number] [address] [place] [address], [place] [address] Jan, [facility] [address] [id number] [address] [place] [address], [place] [address] Jan, [facility] [address] [id number] [address] [place] [address], [place] [address] Jan, [facility] [address] [id number] [address] [place] [address], [place] [address] Jan, [facility] [address] [id number] [facility] [place] [address] Jan, [facility] [address] [id number] [address] [place] [address], [place] [address] Jan, [facility] [address] [id number] [address] [place] [address], [place] [address] Jan, [facility] [address] [id number] [address] [place] [address], [place] [address] Jan, [facility] [address] [id number] [address] [place] [address], [place] [address] Jan, [facility] [address] [id number] [address] [place] [address], [place] [address] Jan, [facility] [address] [id number] [address] [place] [address], [place] [address] Jan, [facility] [address] [id number] [address] [place] [address], [place] [address] Jan, [facility] [address] [id number] [place] [address], [place] [address] Dec, [facility] [address] [id number] [address] [place] [address], [place] [address] Dec, [facility] [address] [id number] [address] [place] [address], [place] [address] Dec, [facility] [address] [id number] [address] [place] [address], [place] [address] Dec, [facility] [address] [id number] [address] [place] [address], [place] [address] Dec, [facility] [address] [id number] [address] [place] [address], [place] [address] Dec, [facility] [address] [id number] [address] [place] [address], [place] [address] Dec, [facility] [address] [id number] [address] [place] [address], [place] [address] Dec, [facility] [address] [id number] [facility] [place] [place] [address] Dec, [facility] [address] [id number] [address] [place] [address], [place] [address] Dec, [facility] [address] [id number] [address] [place] [address], [place] [address] Dec, [facility] [address] [id number] [address] [place] [address], [place] [address] Dec, [facility] [address] [id number] [address] [place] [address], [place] [address] Nov, [facility] [address] [id number] [address] [place] [address], [place] [address] Nov, [facility] [address] [id number] [address] [place] [address], [place] [address] Nov, [facility] [address] [id number] [address] [place] [address], [place] [address] Nov, [facility] [address] [id number] [address] [place] [address], [place] [address] Nov, [facility] [address] [id number] [address] [place] [address], [place] [address] Nov, [facility] [address] [id number] [address] [place] [address], [place] [address] Nov, [facility] [address] [id number] [address] [place] [address], [place] [address] Nov, [facility] [address] [id number] [address] [place] [address], [place] [address] Nov, [facility] [address] [id number] [address] [place] [address], [place] [address] Nov, [facility] [address] [id number] [address] [place] [address], [place] [address] Nov, [facility] [address] [id number] [facility] [place] [place] [address] Nov, [facility] [address] [id number] [address] [place] [address], [place] [address] Nov, [facility] [address] [id number] [address] [place] [address], [place] [address] Nov, [facility] [address] [id number] [address] [place] [address], [place] [address] October, [facility] [address] [id number] [address] [place] [address], [place] [address] October, [facility] [address] [id number] [address] [place] [address], [place] [address] October, [facility] [address] [id number] [address] [place] [address], [place] [address] October, [facility] [address] [id number] [address] [place] [address], [place] [address] October, [facility] [address] [id number] [address] [place] [address], [place] [address] October, [facility] [address] [id number] [address] [place] [address], [place] [address] October, [facility] [address] [id number] [address] [place] [address], [place] [address] October, [facility] [address] [id number] [address] [place] [address], [place] [address] October, [facility] [address] [id number] [address] [place] [address], [place] [address] October, [facility] [address] [id number] [address] [place] [address], [place] [address] October, [facility] [address] [id number] [address] [place] [address], [place] [address] October, [facility] [address] [id number] [address] [place] [address], [place] [address] Sep, [facility] [address] [id number] [facility] [place] [place] [address] Sep, [facility] [address] [id number] [address] [place] [address], [place] [address] Sep, [facility] [address] [id number] [facility] [place] [place] [address] Sep, [facility] [address] [id number] [address] [place] [address], [place] [address] Sep, [facility] [address] [id number] [address] [place] [address], [place] [address] Sep, [facility] [address] [id number] [address] [place] [address], [place] [address] Aug, [facility] [address] [id number] [address] [place] [address], [place] [address] Aug, [facility] [address] [id number] [address] [place] [address], [place] [address] Aug, [facility] [address] [id number] [address] [place] [address], [place] [address] Aug, [facility] [address] [id number] [address] [place] [address], [place] [address] Aug, [facility] [address] [id number] [address] [place] [address], [place] [address] Aug, [facility] [address] [id number] [address] [place] [address], [place] [address] Jul, [facility] [address] [id number] [address] [place] [address], [place] [address] Jul, [facility] [address] [id number] [address] [place] [address], [place] [address] Jul, [facility] [address] [id number] [address] [place] [address], [place] [address] Jul, [facility] [address] [id number] [address] [place] [address], [place] [address] 13 Jul, 2013 [facility] [address] [id number] [address] [place] [address], [place] [address] Jul, [facility] [address] [id number] [address] [place] [address], [place] [address] Jul, [facility] [address] [id number] [address] [place] [address], [place] [address] Jul, [facility] [address] [id number] [address] [place] [address], [place] [address] Jul, [facility] [address] [id number] [address] [place] [address], [place] [address] Jul, [facility] [address] [id number] [address] [place] [address], [place] [address] Jun, [facility] [address] [id number] [address] [place] [address], [place] [address] Jun, [facility] [address] [id number] [address] [place] [address], [place] [address] Jun, [facility] [address] [id number] [address] [place] [address], [place] [address] Jun, [facility] [address] [id number] [address] [place] [address], [place] [address] Jun, [facility] [address] [id number] [address] [place] [address], [place] [address] Jun, [facility] [address] [id number] [address] [place] [address], [place] [address] Jun, [facility] [address] [id number] [address] [place] [address], [place] [address] Jun, [facility] [address] [id number] [address] [place] [address], [place] [address] May, [facility] [address] [id number] [address] [place] [address], [place] [address] May, [facility] [address] [id number] [address] [place] [address], [place] [address] May, [facility] [address] [id number] [address] [place] [address], [place] [address] May, [facility] [address] [id number] [address] [place] [address], [place] [address] May, [facility] [address] [id number] [address] [place] [address], [place] [address] May, [facility] [address] [id number] [address] [place] [address], [place] [address] May, [facility] [address] [id number] [address] [place] [address], [place] [address] May, [facility] [address] [id number] [address] [place] [address], [place] [address] Apr, [facility] [address] [id number] [address] [place] [address] Apr, [facility] [address] [id number] [address] [place] [address], [place] [address] Apr, [facility] [address] [id number] [address] [place] [address] Apr, [facility] [address] [id number] [address] [place] [address] Apr, [facility] [address] [id number] [address] [place] [address] Apr, [facility] [address] [id number] [address] [place] [address], [place] [address] Mar, [facility] [address] [id number] [address] [place] [address] Mar, [facility] [address] [id number] [address] [place] [address], [place] [address] Mar, [facility] [address] [id number] [address] [place] [address], [place] [address] Mar, [facility] [address] [id number] [address] [place] [address], [place] [address] Mar, [facility] [address] [id number] [address] [place] [address], [place] [address] Mar, [facility] [address] [id number] [address] [place] [address], [place] [address] Mar, [facility] [address] [id number] [address] [place] [address], [place] [address] 30 Feb, 2012 [facility] [address] [id number] [address] [place] [address], [place] [address] 30 Feb, 2013 [facility] [address] [id number] [address] [place] [address], [place] [address] 27 Feb, 2013 [facility] [address] [id number] [address] [place] [address], [place] [address] Feb, 2012 [facility] [address] [id number] [address] [place] [address], [place] [address] Feb, [facility] [address] [id number] [address] [place] [address], [place] [address] Feb, [facility] [address] [id number] [address] [place] [address], [place] [address] Jan, [facility] [address] [id number] [address] [place] [address], [place] [address] Jan, [facility] [address] [id number] [address] [place] [address], [place] [address] Jan, [facility] [address] [id number] [address] [place] [address], [place] [address] Jan, [facility] [address] [id number] [address] [place] [address], [place] [address] Jan, [facility] [address] [id number] [address] [place] [address], [place] [address] Jan, [facility] [address] [id number] [address] [place] [address], [place] [address] Jan, [facility] [address] [id number] [address] [place] [address], [place] [address] Jan, [facility] [address] [id number] [address] [place] [address], [place] [address] Jan, [facility] [address] [id number] [address] [place] [address], [place] [address] Dec, [facility] [address] [id number] [address] [place] [address], [place] [address] Dec, [facility] [address] [id number] [address] [place] [address], [place] [address] Dec, [facility] [address] [id number] [address] [place] [address], [place] [address] Dec, [facility] [address] [id number] [address] [place] [address], [place] [address] Dec, [facility] [address] [id number] [address] [place] [address], [place] [address] Dec, [facility] [address] [id number] [address] [place] [address], [place] [address] Dec, [facility] [address] [id number] [address] [place] [address], [place] [address] Dec, [facility] [address] [id number] [address] [place] [address], [place] [address] Dec, [facility] [address] [id number] [address] [place] [address], [place] [address] Dec, [facility] [address] [id number] [address] [place] [address], [place] [address] Dec, [facility] [address] [id number] [address] [place] [address], [place] [address] Dec, [facility] [address] [id number] [address] [place] [address], [place] [address] Dec, [facility] [address] [id number] [address] [place] [address], [place] [address] Nov, [facility] [address] [id number] [address] [place] [address], [place] [address] Nov, [facility] [address] [id number] [address] [place] [address], [place] [address] Nov, [facility] [address] [id number] [address] [place] [address], [place] [address] Nov, [facility] [address] [id number] [address] [place] [address], [place] [address] October, [facility] [address] [id number] [address] [place] [address], [place] [address] October, [facility] [address] [id number] [address] [place] [address], [place] [address] October, [facility] [address] [id number] [address] [place] [address], [place] [address] October, [facility] [address] [id number] [address] [place] [address], [place] [address] October, [facility] [address] [id number] [address] [place] [address], [place] [address] October, [facility] [address] [id number] [address] [place] [address], [place] [address] Sep, [facility] [address] [id number] [address] [place] [address], [place] [address] Sep, [facility] [address] [id number] [address] [place] [address], [place] [address] Sep, [facility] [address] [id number] [address] [place] [address], [place] [address] Sep, [facility] [address] [id number] [address] [place] [address], [place] [address] Sep, [facility] [address] [id number] [facility] [place] [place] [address] 16 Sep, 2012 [facility] [address] [id number] [address] [place] [address], [place] [address] 12 Sep, 2012 [facility] [address] [id number] [address] [place] [address], [place] [address] Sep, [facility] [address] [id number] [address] [place] [address], [place] [address] Sep, [facility] [address] [id number] [address] [place] [address], [place] [address] Sep, [facility] [address] [id number] [address] [place] [address], [place] [address] Sep, [facility] [address] [id number] [address] [place] [address], [place] [address] Aug, [facility] [address] [id number] [address] [place] [address], [place] [address] 25 Aug, 2012 [facility] [address] [id number] [address] [place] [address], [place] [address] 25 Aug, 2012 [facility] [address] [id number] [address] [place] [address], [place] [address] 21 Aug, 2012 [facility] [address] [id number] [address] [place] [address], [place] [address] 19 Aug, 2012 [facility] [address] [id number] [address] [place] [address], [place] [address] 18 Aug, 2012 [facility] [address] [id number] [address] [place] [address], [place] [address] 17 Aug, 2012 [facility] [address] [id number] [address] [place] [address], [place] [address] 15 Aug, 2012 [facility] [address] [id number] [address] [place] [address], [place] [address] 15 Aug, 2012 [facility] [address] [id number] [address] [place] [address], [place] [address] Aug, [facility] [address] [id number] [address] [place] [address], [place] [address] Aug, [facility] [address] [id number] [address] [place] [address], [place] [address] Aug, [facility] [address] [id number] [address] [place] [address], [place] [address] Jul, [facility] [address] [id number] [address] [place] [address], [place] [address] Jul, [facility] [address] [id number] [address] [place] [address], [place] [address] Jul, [facility] [address] [id number] [address] [place] [address], [place] [address] Jul, [facility] [address] [id number] [address] [place] [address], [place] [address] Jul, [facility] [address] [id number] [address] [place] [address], [place] [address] Jul, [facility] [address] [id number] [address] [place] [address], [place] [address] Jul, [facility] [address] [id number] [address] [place] [address], [place] [address] Jul, [facility] [address] [id number] [address] [place] [address], [place] [address] Jul, [facility] [address] [id number] [address] [place] [address], [place] [address] Jul, [facility] [address] [id number] [address] [place] [address], [place] [address] May, [facility] [address] [id number] [place] [id number] May, [facility] [address] [id number] [address] [place] [address], [place] [address] May, [facility] [address] [id number] [address] [place] [id number] May, [facility] [address] [facility] [id number] [address] [place] [id number] May, [facility] [address] [facility] [id number] [address] [place] [id number] Apr, [facility] [address] [id number] [place] [id number] Apr, [facility] [address] [facility] [id number] [address] [place] [id number] Apr, [facility] [address] [facility] [id number] [address] [place] [id number] Mar, [facility] [address] [id number] [place] [id number] Mar, [facility] [address] [facility] [id number] [address] [place] [id number] Mar, [facility] [address] [id number] [place] [id number] Feb, [facility] [address] [facility] [id number] [address] [place] [id number] Feb, [facility] [address] [facility] [id number] [address] [place] [id number] Feb, [facility] [address] [id number] [place] [id number] Feb, [facility] [address] [id number] [place] [id number] Feb, [facility] [address] [id number] [place] [id number] Jan, [facility] [address] [id number] [address] [place] [address], [place] [address] Jan, [facility] [address] [id number] [place] [id number] Jan, [facility] [address] [id number] [place] [id number] Jan, [facility] [address] [id number] [place] [id number] Jan, [facility] [address] [facility] [id number] [address] [place] [address], [place] [address] Jan, [facility] [address] [facility] [id number] [address] [place] [address], [place] [address] Jan, [facility] [address] [facility] [id number] [address] [place] [address], [place] [address] Aug, [facility] [address] [id number] [place] [id number] Aug, [facility] [address] [facility] [id number] [address] [place] [address], [place] [address] Jul, [facility] [address] [facility] [id number] [address] [place] [address], [place] [address] Jul, [facility] [address] [facility] [id number] [address] [place] [address], [place] [address] Jul, [facility] [address] [id number] [place] [id number] Jul, [facility] [address] [facility] [id number] [address] [place] [address], [place] [address] Jul, [facility] [address] [id number] [place] [id number] Jul, [facility] [address] [facility] [id number] [address] [place] [address], [place] [address] Jul, [facility] [address] [id number] [place] [id number] Jul, [facility] [address] [id number] [place] [id number] Jul, [facility] [address] [id number] [place] [id number] Jul, [facility] [address] [facility] [id number] [address] [place] [address], [place] [address] May, [facility] [address] [id number] [address] [place] [id number] May, [facility] [address] [id number] [address] [place] [id number] May, [facility] [address] [id number] [address] [place] [id number] Apr, [facility] [address] [id number] [address] [place] [id number] Jan, [facility] [address] [id number] [address] [place] [id number] Jan, [facility] [address] [id number] [address] [place] [id number] Dec, [facility] [address] [id number] [address] [place] [id number] Dec, [facility] [address] [id number] [address] [place] [address] [id number] May, [facility] [address] [id number] [address] [place] [id number] Mar, [facility] [address] [id number] [address] [place] [id number] Mar, [facility] [address] [id number] [address] [place] [id number] Jan, IMMUNIZATIONS No Known Immunizations SOCIAL HISTORY [...]
--- OUTSIDE RECORDS SUMMARY | 2020-01-28 12:52 | XMS REPORT ---
Author Author Heydi ROBB 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 [id number] [address] [place] [address] Apr, snf (current) use of 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 Z79.01 [facility] [address] [facility] [id number] [address] [place] [address] Apr, snf 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.01 [facility] [address] [facility] [id number] [address] [place] [address] Apr, Cellulitis of unspecified pa rt of limb L03.119 ; Allergic contact dermatitis due to adhesives L23.1 and Chronic pain syndrome G89.4 [facility] [address] 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.01 ; Cellulitis of unspecified part of limb L03.119 ; Chronic pain syndrome G89.4 and Anxiety F41.9 [facility] [address] [place] [id number] [address] [place] [id number] 16 Apr, 2015 [facility] [address] [place] [id number] [place] [address] Apr, [place] [address] [place] [id number] [place] [address] Mar, [place] [address] [address] Mar, [place] [address] [address] Mar, Sore throat J02.9 ; Gastroes ophageal reflux disease without esophagitis K21.9 ; Pseudotumor cerebri G93.2 ; Chronic pain syndrome G89.4 ; Choriocarcinoma C58 ; History of pulmonary embolism Z86.711 ; History of DVT (deep vein thrombosis) Z86.718 ; Anxiety F41.9 and Tachycardia R00.0 [place] [address] [address] Feb, Anxiety 300.00 and Chronic p ain 338.29 [place] [address] [place] [id number] [address] [place] [address] Feb, [place] [address] [place] [id number] [address] [place] [address] Feb, [place] [address] [address] Jan, 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 inspector 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 of ant icoagulant therapy V58.61 and Dysuria 788.1 [place] [address] [place] [id number] [place] [address] Jan, Dysuria 788.1 [facility] [address] [place] [id number] [address] [place] [address] Jan, Anxiety 300.00 and Chronic p ain 338.29 [facility] [address] [place] [id number] [place] [address] Jan, [facility] [address] [address] Jan, [facility] [address] [address] Jan, [place] [address] [address] Dec, Weakness 780.79 [place] [address] [address] Dec, snf current use of ant icoagulant therapy V58.61 [place] [address] [address] Dec, Palpitations 785.1 ; Tremor 781.0 ; Weakness 780.79 ; snf current use of anticoagulant therapy V58.61 and Yeast vaginitis 112.1 [place] [address] [place] [id number] [address] [place] [address] Dec, [place] [address] [address] Dec, Cervicalgia 723.1 ; Tachycar yoseph 785.0 ; Pseudotumor cerebri 348.2 and History of venous thromboembolism V12.51 [place] [address] [address] Nov, [place] [address] [address] Nov, [place] [address] [address] Nov, Tachycardia 785.0 ; Pseudotu mor cerebri 348.2 ; Anxiety 300.00 and History of venous thromboembolism V12.51 [facility] [address] [id number] [address] [place] [address] Nov, [facility] [address] [id number] [address] [place] [address] 18 Nov, 2014 [facility] [address] [id number] [address] [place] [address] Nov, [facility] [address] [id number] [address] [place] [phone] Nov, [facility] [address] [facility] [id number] [address] [place] [phone] Nov, [facility] [address] [facility] [id number] [address] [place] [address] Nov, [facility] [address] [facility] [id number] [address] [place] [phone] Nov, [facility] [address] [facility] [id number] [address] [place] [address] October, [facility] [address] [facility] [id number] [address] [place] [address] October, [facility] [address] [place] [id number] [address] [place] [address] October, Pain in thoracic spine 724.1 and Tachycardia 785.0 [facility] [address] [id number] [address] [place] [address] October, [facility] [address] [id number] [address] [place] [address] October, [facility] [address] [facility] [id number] [address] [place] [address] 14 Sep, 2014 [facility] [address] [facility] [id number] [address] [place] [phone] Sep, [facility] [address] [id number] [facility] [place] [address] Aug, [facility] [address] [id number] [address] [place] [address], [place] [address] Aug, [facility] [address] [id number] [address] [place] [address], [place] [address] Aug, [facility] [address] [id number] [address] [place] [address], [place] [address] Aug, [facility] [address] [id number] [address] [place] [address], [place] [address] Aug, [facility] [address] [id number] [address] [place] [address], [place] [address] Aug, [facility] [address] [id number] [address] [place] [address], [place] [address] Aug, [facility] [address] [id number] [address] [place] [address], [place] [address] Aug, [facility] [address] [id number] [address] [place] [address], [place] [address] Aug, [facility] [address] [id number] [address] [place] [address], [place] [address] Aug, [facility] [address] [id number] [address] [place] [address], [place] [address] Aug, [facility] [address] [id number] [address] [place] [address], [place] [address] Aug, 2014 [facility] [address] [id number] [address] [place] [address], [place] [address] Jul, [facility] [address] [id number] [address] [place] [address], [place] [address] Jul, [facility] [address] [id number] [address] [place] [address], [place] [address] Jul, [facility] [address] [id number] [address] [place] [address], [place] [address] Jul, [facility] [address] [id number] [address] [place] [address], [place] [address] 23 Jul, 2014 [facility] [address] [id number] [address] [place] [address], [place] [address] 23 Jul, 2014 [facility] [address] [id number] [address] [place] [address], [place] [address] 23 Jul, 2014 [facility] [address] [id number] [address] [place] [address], [place] [address] 23 Jul, 2014 [facility] [address] [id number] [address] [place] [address], [place] [address] 20 Jul, 2014 [facility] [address] [id number] [address] [place] [address], [place] [address] 20 Jul, 2014 [facility] [address] [id number] [address] [place] [address], [place] [address] 19 Jul, 2014 [facility] [address] [id number] [address] [place] [address], [place] [address] 19 Jul, 2014 [facility] [address] [id number] [address] [place] [address], [place] [address] 17 Jul, 2014 [facility] [address] [id number] [address] [place] [address], [place] [address] 17 Jul, 2014 [facility] [address] [id number] [address] [place] [address], [place] [address] 16 Jul, 2014 [facility] [address] [id number] [address] [place] [address], [place] [address] 16 Jul, 2014 [facility] [address] [id number] [address] [place] [address], [place] [address] 16 Jul, 2014 [facility] [address] [id number] [address] [place] [address] 16 Jul, 2014 [facility] [address] [id number] [address] [place] [id number] 13 Jul, 2014 [facility] [address] [id number] [address] [place] [address], [place] [address] Jul, [facility] [address] [id number] [address] [place] [address], [place] [address] Jul, [facility] [address] [id number] [address] [place] [address], [place] [address] Jul, 2014 [facility] [address] [id number] [address] [place] [address], [place] [address] Jul, 2014 [facility] [address] [id number] [address] [place] [address], [place] [address] Jul, [facility] [address] [id number] [address] [place] [address], [place] [address] Jul, [facility] [address] [id number] [address] [place] [address], [place] [address] Jul, [facility] [address] [id number] [address] [place] [address], [place] [address] Jul, [facility] [address] [id number] [address] [place] [address], [place] [address] Jul, [facility] [address] [id number] [address] [place] [address], [place] [address] Jul, [facility] [address] [id number] [address] [place] [address], [place] [address] Jul, [facility] [address] [id number] [address] [place] [address], [place] [address] Jun, [facility] [address] [id number] [address] [place] [address], [place] [address] Jun, [facility] [address] [id number] [address] [place] [address], [place] [address] Jun, [facility] [address] [id number] [address] [place] [address], [place] [address] Jun, [facility] [address] [id number] [address] [place] [address], [place] [address] Jun, [facility] [address] [id number] [address] [place] [address], [place] [address] Jun, [facility] [address] [id number] [address] [place] [address], [place] [address] Jun, [facility] [address] [id number] [address] [place] [address], [place] [address] Jun, [facility] [address] [id number] [address] [place] [address], [place] [address] Jun, [facility] [address] [id number] [address] [place] [address], [place] [address] Jun, [facility] [address] [id number] [address] [place] [address], [place] [address] Jun, [facility] [address] [id number] [address] [place] [address], [place] [address] Jun, [facility] [address] [id number] [address] [place] [address], [place] [address] Jun, [facility] [address] [id number] [address] [place] [address], [place] [address] Jun, [facility] [address] [id number] [address] [place] [address], [place] [address] Jun, [facility] [address] [id number] [address] [place] [address], [place] [address] Jun, [facility] [address] [id number] [address] [place] [address], [place] [address] Jun, [facility] [address] [id number] [address] [place] [address], [place] [address] Jun, [facility] [address] [id number] [address] [place] [address], [place] [address] Jun, [facility] [address] [id number] [address] [place] [address], [place] [address] Jun, [facility] [address] [id number] [address] [place] [address], [place] [address] May, [facility] [address] [id number] [address] [place] [address], [place] [address] May, [facility] [address] [id number] [address] [place] [address], [place] [address] May, [facility] [address] [id number] [address] [place] [address], [place] [address] May, [facility] [address] [id number] [address] [place] [address], [place] [address] May, [facility] [address] [id number] [address] [place] [address], [place] [address] May, [facility] [address] [id number] [address] [place] [address], [place] [address] May, [facility] [address] [id number] [address] [place] [address], [place] [address] May, [facility] [address] [id number] [address] [place] [address], [place] [address] May, [facility] [address] [id number] [address] [place] [address], [place] [address] May, [facility] [address] [id number] [address] [place] [address], [place] [address] May, [facility] [address] [id number] [address] [place] [address], [place] [address] 18 May, 2014 [facility] [address] [id number] [address] [place] [address], [place] [address] 18 May, 2014 [facility] [address] [id number] [address] [place] [address], [place] [address] 17 May, 2014 [facility] [address] [id number] [address] [place] [address], [place] [address] 16 May, 2014 [facility] [address] [id number] [address] [place] [address], [place] [address] 16 May, 2014 [facility] [address] [id number] [address] [place] [address], [place] [address] 15 May, 2014 [facility] [address] [id number] [address] [place] [address], [place] [address] 15 May, 2014 [facility] [address] [id number] [address] [place] [address], [place] [address] May, [facility] [address] [id number] [address] [place] [address], [place] [address] May, [facility] [address] [id number] [address] [place] [address], [place] [address] May, [facility] [address] [id number] [address] [place] [address], [place] [address] May, [facility] [address] [id number] [address] [place] [address], [place] [address] May, [facility] [address] [id number] [address] [place] [address], [place] [address] May, [facility] [address] [id number] [address] [place] [address], [place] [address] May, [facility] [address] [id number] [address] [place] [address], [place] [address] May, [facility] [address] [id number] [address] [place] [address], [place] [address] May, [facility] [address] [id number] [address] [place] [address], [place] [address] May, [facility] [address] [id number] [address] [place] [address], [place] [address] May, [facility] [address] [id number] [address] [place] [address], [place] [address] May, [facility] [address] [id number] [address] [place] [address], [place] [address] May, [facility] [address] [id number] [address] [place] [address], [place] [address] May, [facility] [address] [id number] [address] [place] [address], [place] [address] May, [facility] [address] [id number] [address] [place] [address], [place] [id number] May, [facility] [address] [id number] [address] [place] [address], [place] [address] Apr, [facility] [address] [id number] [address] [place] [address], [place] [address] Apr, [facility] [address] [id number] [address] [place] [address], [place] [address] Apr, [facility] [address] [id number] [address] [place] [address], [place] [address] Apr, [facility] [address] [id number] [address] [place] [address], [place] [id number] Apr, [facility] [address] [id number] [address] [place] [address], [place] [address] Apr, [facility] [address] [id number] [address] [place] [address], [place] [address] Apr, [facility] [address] [id number] [address] [place] [address], [place] [address] Apr, [facility] [address] [id number] [address] [place] [address], [place] [address] Apr, [facility] [address] [id number] [address] [place] [address], [place] [address] Apr, [facility] [address] [id number] [address] [place] [address], [place] [address] Mar, [facility] [address] [id number] [address] [place] [address], [place] [address] Mar, [facility] [address] [id number] [address] [place] [address] [address] Mar, [facility] [address] [id number] [address] [place] [address], [place] [address] 31 Mar, 2013 [facility] [address] [id number] [address] [place] [address], [place] [address] Mar, [facility] [address] [id number] [address] [place] [address], [place] [id number] 30 Mar, 2014 [facility] [address] [id number] [address] [place] [address], [place] [address] Mar, [facility] [address] [id number] [address] [place] [address], [place] [id number] Mar, [facility] [address] [id number] [address] [place] [address], [place] [id number] Mar, [facility] [address] [id number] [address] [place] [address], [place] [id number] Mar, [facility] [address] [id number] [address] [place] [id number] Mar, [facility] [address] [id number] [address] [place] [id number] Mar, [facility] [address] [id number] [address] [place] [id number] Mar, [facility] [address] [id number] [address] [place] [id number] Mar, 2013 [facility] [address] [id number] [address] [place] [id number] Mar, 2013 [facility] [address] [id number] [address] [place] [id number] Mar, [facility] [address] [id number] [address] [place] [id number] Mar, [facility] [address] [id number] [address] [place] [id number] Mar, 2013 [facility] [address] [id number] [address] [place] [address], [place] [id number] 02 Mar, 2013 [facility] [address] [id number] [address] [place] [address], [place] [id number] 02 Mar, 2013 [facility] [address] [id number] [address] [place] [address], [place] [id number] 05 Sep, 2013 [facility] [address] [id number] [address] [place] [address], [place] [id number] 05 Sep, 2013 [facility] [address] [id number] [address] [place] [address], [place] [id number] 04 Sep, 2013 [facility] [address] [id number] [address] [place] [address], [place] [id number] 04 Sep, 2013 [facility] [address] [id number] [address] [place] [address], [place] [id number] 03 Feb, 2013 [facility] [address] [id number] [address] [place] [address], [place] [id number] 03 Feb, 2013 [facility] [address] [id number] [address] [place] [address], [place] [id number] 02 Feb, 2013 [facility] [address] [id number] [address] [place] [address], [place] [id number] Feb, 2013 [facility] [address] [id number] [address] [place] [address], [place] [id number] 02 Feb, 2013 [facility] [address] [id number] [address] [place] [address], [place] [id number] Feb, 2013 [facility] [address] [id number] [address] [place] [address], [place] [id number] Jan, [facility] [address] [id number] [address] [place] [address], [place] [id number] Jan, [facility] [address] [id number] [address] [place] [address], [place] [id number] Jan, [facility] [address] [id number] [address] [place] [address], [place] [id number] Jan, [facility] [address] [id number] [facility] [place] [id number] Jan, [facility] [address] [id number] [address] [place] [address], [place] [id number] Jan, [facility] [address] [id number] [address] [place] [address], [place] [id number] Jan, [facility] [address] [id number] [address] [place] [address], [place] [id number] Jan, [facility] [address] [id number] [address] [place] [address], [place] [id number] Jan, [facility] [address] [id number] [address] [place] [address], [place] [id number] Jan, [facility] [address] [id number] [address] [place] [address], [place] [id number] Jan, [facility] [address] [id number] [address] [place] [address], [place] [id number] Jan, [facility] [address] [id number] [address] [place] [address], [place] [id number] Dec, [facility] [address] [id number] [address] [place] [address], [place] [id number] Dec, [facility] [address] [id number] [address] [place] [address], [place] [id number] Dec, [facility] [address] [id number] [address] [place] [address], [place] [id number] Dec, [facility] [address] [id number] [address] [place] [address], [place] [id number] Dec, [facility] [address] [id number] [address] [place] [address], [place] [id number] Dec, [facility] [address] [id number] [address] [place] [address], [place] [id number] Dec, [facility] [address] [id number] [address] [place] [address], [place] [id number] Dec, [facility] [address] [id number] [facility] [place] [id number] Dec, [facility] [address] [id number] [address] [place] [address], [place] [id number] Dec, [facility] [address] [id number] [place] [address], [place] [id number] Dec, [facility] [address] [id number] [address] [place] [address], [place] [id number] Dec, [facility] [address] [id number] [address] [place] [address], [place] [id number] Nov, [facility] [address] [id number] [address] [place] [address], [place] [address] Nov, [facility] [address] [id number] [address] [place] [address], [place] [address] Nov, [facility] [address] [id number] [address] [place] [address], [place] [address] Nov, [facility] [address] [id number] [address] [place] [address], [place] [id number] Nov, [facility] [address] [id number] [address] [place] [address], [place] [address] Nov, [facility] [address] [id number] [address] [place] [address], [place] [address] Nov, [facility] [address] [id number] [address] [place] [address], [place] [id number] Nov, [facility] [address] [id number] [address] [place] [address], [place] [address] Nov, [facility] [address] [id number] [address] [place] [address], [place] [address] Nov, [facility] [address] [id number] [address] [place] [address], [place] [address] Nov, [facility] [address] [id number] [facility] [place] [address] Nov, [facility] [address] [id number] [address] [place] [address], [place] [address] Nov, [facility] [address] [id number] [address] [place] [address], [place] [address] Nov, [facility] [address] [id number] [address] [place] [address], [place] [address] October, [facility] [address] [id number] [address] [place] [address], [place] [address] October, [facility] [address] [id number] [address] [place] [address], [place] [id number] October, [facility] [address] [id number] [address] [place] [address], [place] [address] October, [facility] [address] [id number] [address] [place] [address], [place] [address] October, [facility] [address] [id number] [address] [place] [address], [place] [address] October, [facility] [address] [id number] [address] [place] [address], [place] [id number] October, [facility] [address] [id number] [address] [place] [address], [place] [id number] October, [facility] [address] [id number] [address] [place] [address], [place] [address] October, [facility] [address] [id number] [address] [place] [address], [place] [address] October, [facility] [address] [id number] [address] [place] [address], [place] [address] October, [facility] [address] [id number] [address] [place] [address], [place] [id number] October, [facility] [address] [id number] [address] [place] [address], [place] [address] Sep, [facility] [address] [id number] [facility] [place] [address] Sep, [facility] [address] [id number] [address] [place] [address], [place] [address] Sep, [facility] [address] [id number] [facility] [place] [address] Sep, [facility] [address] [id number] [address] [place] [address], [place] [id number] Sep, [facility] [address] [id number] [address] [place] [address], [place] [address] Sep, [facility] [address] [id number] [address] [place] [address], [place] [address] Aug, [facility] [address] [id number] [address] [place] [address], [place] [address] Aug, [facility] [address] [id number] [address] [place] [address], [place] [address] Aug, [facility] [address] [id number] [address] [place] [address], [place] [address] Aug, [facility] [address] [id number] [address] [place] [address], [place] [address] Aug, [facility] [address] [id number] [address] [place] [address], [place] [address] Aug, [facility] [address] [id number] [address] [place] [address], [place] [address] Jul, [facility] [address] [id number] [address] [place] [address], [place] [address] Jul, [facility] [address] [id number] [address] [place] [address], [place] [address] Jul, [facility] [address] [id number] [address] [place] [address], [place] [address] Jul, [facility] [address] [id number] [address] [place] [address], [place] [id number] 13 Jul, 2013 [facility] [address] [id number] [address] [place] [address], [place] [address] Jul, [facility] [address] [id number] [address] [place] [address], [place] [address] Jul, [facility] [address] [id number] [address] [place] [address], [place] [address] Jul, [facility] [address] [id number] [address] [place] [address], [place] [address] Jul, [facility] [address] [id number] [address] [place] [address], [place] [id number] Jul, [facility] [address] [id number] [address] [place] [address], [place] [address] Jun, [facility] [address] [id number] [address] [place] [address], [place] [address] Jun, [facility] [address] [id number] [address] [place] [address], [place] [address] Jun, [facility] [address] [id number] [address] [place] [address], [place] [address] Jun, [facility] [address] [id number] [address] [place] [address], [place] [address] Jun, [facility] [address] [id number] [address] [place] [address], [place] [id number] Jun, [facility] [address] [id number] [address] [place] [address], [place] [id number] Jun, [facility] [address] [id number] [address] [place] [address], [place] [address] Jun, [facility] [address] [id number] [address] [place] [address], [place] [address] May, [facility] [address] [id number] [address] [place] [address], [place] [address] May, [facility] [address] [id number] [address] [place] [address], [place] [address] May, [facility] [address] [id number] [address] [place] [address], [place] [address] May, [facility] [address] [id number] [address] [place] [address], [place] [address] May, [facility] [address] [id number] [address] [place] [address], [place] [address] May, [facility] [address] [id number] [address] [place] [address], [place] [address] May, [facility] [address] [id number] [address] [place] [address], [place] [address] May, [facility] [address] [id number] [address] [place] [address], [place] [address] Apr, [facility] [address] [id number] [address] [place] [address] Apr, [facility] [address] [id number] [address] [place] [address], [place] [address] Apr, [facility] [address] [id number] [address] [place] [address] Apr, [facility] [address] [id number] [address] [place] [address] Apr, [facility] [address] [id number] [address] [place] [address] Apr, [facility] [address] [id number] [address] [place] [address], [place] [address] Mar, [facility] [address] [id number] [address] [place] [id number] Mar, [facility] [address] [id number] [address] [place] [address], [place] [address] Mar, [facility] [address] [id number] [address] [place] [address], [place] [address] Mar, [facility] [address] [id number] [address] [place] [address], [place] [address] Mar, [facility] [address] [id number] [address] [place] [address], [place] [address] Mar, [facility] [address] [id number] [address] [place] [address], [place] [address] Mar, [facility] [address] [id number] [address] [place] [address], [place] [id number] 30 Feb, 2012 [facility] [address] [id number] [address] [place] [address], [place] [id number] 30 Feb, 2013 [facility] [address] [id number] [address] [place] [address], [place] [id number] 27 Feb, 2013 [facility] [address] [id number] [address] [place] [address], [place] [address] Feb, 2012 [facility] [address] [id number] [address] [place] [address], [place] [address] Feb, [facility] [address] [id number] [address] [place] [address], [place] [address] Feb, [facility] [address] [id number] [address] [place] [address], [place] [address] Jan, [facility] [address] [id number] [address] [place] [address], [place] [address] Jan, [facility] [address] [id number] [address] [place] [address], [place] [address] Jan, [facility] [address] [id number] [address] [place] [address], [place] [address] Jan, [facility] [address] [id number] [address] [place] [address], [place] [address] Jan, [facility] [address] [id number] [address] [place] [address], [place] [address] Jan, [facility] [address] [id number] [address] [place] [address], [place] [address] Jan, [facility] [address] [id number] [address] [place] [address], [place] [address] Jan, [facility] [address] [id number] [address] [place] [address], [place] [id number] Jan, [facility] [address] [id number] [address] [place] [address], [place] [address] Dec, [facility] [address] [id number] [address] [place] [address], [place] [address] Dec, [facility] [address] [id number] [address] [place] [address], [place] [address] Dec, [facility] [address] [id number] [address] [place] [address], [place] [id number] Dec, [facility] [address] [id number] [address] [place] [address], [place] [id number] Dec, [facility] [address] [id number] [address] [place] [address], [place] [address] Dec, [facility] [address] [id number] [address] [place] [address], [place] [address] Dec, [facility] [address] [id number] [address] [place] [address], [place] [address] Dec, [facility] [address] [id number] [address] [place] [address], [place] [address] Dec, [facility] [address] [id number] [address] [place] [address], [place] [address] Dec, [facility] [address] [id number] [address] [place] [address], [place] [address] Dec, [facility] [address] [id number] [address] [place] [address], [place] [address] Dec, [facility] [address] [id number] [address] [place] [address], [place] [address] Dec, [facility] [address] [id number] [address] [place] [address], [place] [address] Nov, [facility] [address] [id number] [address] [place] [address], [place] [address] Nov, [facility] [address] [id number] [address] [place] [address], [place] [address] Nov, [facility] [address] [id number] [address] [place] [address], [place] [address] Nov, [facility] [address] [id number] [address] [place] [address], [place] [address] October, [facility] [address] [id number] [address] [place] [address], [place] [address] October, [facility] [address] [id number] [address] [place] [address], [place] [address] October, [facility] [address] [id number] [address] [place] [address], [place] [address] October, [facility] [address] [id number] [address] [place] [address], [place] [id number] October, [facility] [address] [id number] [address] [place] [address], [place] [address] October, [facility] [address] [id number] [address] [place] [address], [place] [id number] Sep, [facility] [address] [id number] [address] [place] [address], [place] [address] Sep, [facility] [address] [id number] [address] [place] [address], [place] [address] Sep, [facility] [address] [id number] [address] [place] [address], [place] [address] Sep, [facility] [address] [id number] [address] [place] [address], [place] [address] Sep, [facility] [address] [id number] [address] [place] [id number] 16 Sep, 2012 [facility] [address] [id number] [address] [place] [address], [place] [id number] 12 Sep, 2012 [facility] [address] [id number] [address] [place] [address], [place] [address] Sep, [facility] [address] [id number] [address] [place] [address], [place] [address] Sep, [facility] [address] [id number] [address] [place] [address], [place] [id number] Sep, [facility] [address] [id number] [address] [place] [address], [place] [id number] Sep, [facility] [address] [id number] [address] [place] [address], [place] [address] Aug, [facility] [address] [id number] [address] [place] [address], [place] [id number] 25 Aug, 2012 [facility] [address] [id number] [address] [place] [address], [place] [address] 25 Aug, 2012 [facility] [address] [id number] [address] [place] [address], [place] [id number] 21 Aug, 2012 [facility] [address] [id number] [address] [place] [address], [place] [id number] 19 Aug, 2012 [facility] [address] [id number] [address] [place] [address], [place] [id number] 18 Aug, 2012 [facility] [address] [id number] [address] [place] [address], [place] [id number] 17 Aug, 2012 [facility] [address] [id number] [address] [place] [address], [place] [id number] 15 Aug, 2012 [facility] [address] [id number] [address] [place] [address], [place] [id number] 15 Aug, 2012 [facility] [address] [id number] [address] [place] [address], [place] [id number] Aug, [facility] [address] [id number] [address] [place] [address], [place] [id number] Aug, [facility] [address] [id number] [address] [place] [address], [place] [address] Aug, [facility] [address] [id number] [address] [place] [address], [place] [id number] Jul, [facility] [address] [id number] [address] [place] [address], [place] [id number] Jul, [facility] [address] [id number] [address] [place] [address], [place] [address] Jul, [facility] [address] [id number] [address] [place] [address], [place] [address] Jul, [facility] [address] [id number] [address] [place] [address], [place] [id number] Jul, [facility] [address] [id number] [address] [place] [address], [place] [id number] Jul, [facility] [address] [id number] [address] [place] [address], [place] [id number] Jul, [facility] [address] [id number] [address] [place] [address], [place] [id number] Jul, [facility] [address] [id number] [address] [place] [address], [place] [address] Jul, [facility] [address] [id number] [address] [place] [address], [place] [address] Jul, [facility] [address] [id number] [address] [place] [address], [place] [address] May, [facility] [address] [id number] [place] [id number] May, [facility] [address] [id number] [address] [place] [address], [place] [id number] May, [facility] [address] [id number] [address] [place] [id number] May, [facility] [address] [facility] [id number] [address] [place] [id number] May, [facility] [address] [facility] [id number] [address] [place] [id number] Apr, [facility] [address] [id number] [place] [id number] Apr, [facility] [address] [facility] [id number] [address] [place] [id number] Apr, [facility] [address] [facility] [id number] [address] [place] [id number] Mar, [facility] [address] [id number] [place] [id number] Mar, [facility] [address] [facility] [id number] [address] [place] [id number] Mar, [facility] [address] [id number] [place] [id number] Feb, [facility] [address] [facility] [id number] [address] [place] [id number] Feb, [facility] [address] [facility] [id number] [address] [place] [id number] Feb, [facility] [address] [id number] [place] [id number] Feb, [facility] [address] [id number] [place] [id number] Feb, [facility] [address] [id number] [place] [id number] Jan, [facility] [address] [id number] [address] [place] [address], [place] [id number] Jan, [facility] [address] [id number] [place] [id number] Jan, [facility] [address] [id number] [place] [id number] Jan, [facility] [address] [id number] [place] [id number] Jan, [facility] [address] [facility] [id number] [address] [place] [address], [place] [id number] Jan, [facility] [address] [facility] [id number] [address] [place] [address], [place] [id number] Jan, [facility] [address] [facility] [id number] [address] [place] [address], [place] [id number] Aug, [facility] [address] [id number] [place] [id number] Aug, [facility] [address] [facility] [id number] [address] [place] [address], [place] [id number] Jul, [facility] [address] [facility] [id number] [address] [place] [address], [place] [id number] Jul, [facility] [address] [facility] [id number] [address] [place] [address], [place] [id number] Jul, [facility] [address] [id number] [place] [id number] Jul, [facility] [address] [facility] [id number] [address] [place] [address], [place] [id number] Jul, [facility] [address] [id number] [place] [id number] Jul, [facility] [address] [facility] [id number] [address] [place] [address], [place] [id number] Jul, [facility] [address] [id number] [place] [id number] Jul, [facility] [address] [id number] [place] [id number] Jul, [facility] [address] [id number] [place] [id number] Jul, [facility] [address] [facility] [id number] [address] [place] [address], [place] [id number] May, [facility] [address] [id number] [address] [place] [id number] May, [facility] [address] [id number] [address] [place] [phone] May, [facility] [address] [id number] [address] [place] [id number] Apr, [facility] [address] [id number] [address] [place] [id number] Jan, [facility] [address] [id number] [address] [place] [id number] Jan, [facility] [address] [id number] [address] [place] [id number] Dec, [facility] [address] [id number] [address] [place] [id number] Dec, [facility] [address] [id number] [address] [place] [phone] May, [facility] [address] [id number] [address] [place] [id number] Mar, [facility] [address] [id number] [address] [place] [id number] Mar, [facility] [address] [id number] [address] [place] [id number] Jan, IMMUNIZATIONS No Known Immunizations SOCIAL HISTORY Never Assessed REASON FOR VISIT PLAN OF CARE VITAL SIGNS MEDICATIONS Unknown Medications RESULTS No Results PROCEDURES Procedure Date Ordered Result Body Site PROTHROMBIN TIME Jun 22, 2014 INSTRUCTIONS MEDICATIONS ADMINISTERED No Known [...]
--- OUTSIDE RECORDS SUMMARY | 2020-01-28 12:53 | XMS REPORT ---
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 Active 840560820 Problem History of venous thromboembolism V12.51 Active 878481523 Problem Cellulitis of unspecified part of limb L03.119 Active 046943929 Problem Gastroesophageal reflux disease without esophagitis K21.9 Active 582359970 Problem History of pulmonary embolism Z86.711 Active 366032280 Problem Pseudotumor cerebri G93.2 Active 77099113 Problem History of DVT (deep vein thrombosis) Z86.718 Active 192190417 ALLERGIES No Information ENCOUNTERS Encounter Location Date Diagnosis [place] [id number] [facility] [id number] [address] [place] [address] Apr, [facility] (current) use of 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 Z79.01 [facility] [address] [facility] [id number] [address] [place] [address] Apr, [facility] 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.01 [facility] [address] [facility] [id number] [address] [place] [address] Apr, Cellulitis of unspecified pa rt of limb L03.119 ; Allergic contact dermatitis due to adhesives L23.1 and Chronic pain syndrome G89.4 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 [address] [place] [id number] [address] [place] [phone] 16 Apr, 2015 [facility] [address] [place] [id number] [place] [address] Apr, [place] [address] [place] [id number] [place] [address] Mar, [place] [address] [address] Mar, [place] [address] [address] Mar, Sore throat J02.9 ; Gastroes ophageal reflux disease without esophagitis K21.9 ; Pseudotumor cerebri G93.2 ; Chronic pain syndrome G89.4 ; Choriocarcinoma C58 ; History of pulmonary embolism Z86.711 ; History of DVT (deep vein thrombosis) Z86.718 ; Anxiety F41.9 and Tachycardia R00.0 [place] [address] [address] Feb, Anxiety 300.00 and Chronic p ain 338.29 [place] [address] [place] [id number] [address] [place] [phone] Feb, [place] [address] [place] [id number] [address] [place] [phone] Feb, [place] [address] [address] Jan, voice intercept technician current use of ant icoagulant therapy V58.61 and Dysuria 788.1 [place] [address] [place] [id number] [place] [address] Jan, Dysuria 788.1 [facility] [address] [place] [id number] [address] [place] [address] Jan, Anxiety 300.00 and Chronic p ain 338.29 [facility] [address] [place] [id number] [place] [address] Jan, [facility] [address] [address] Jan, [facility] [address] [address] Jan, [place] [address] [address] Dec, Weakness 780.79 [place] [address] [address] Dec, [facility] current use of ant icoagulant therapy V58.61 [place] [address] [address] Dec, Palpitations 785.1 ; Tremor 781.0 ; Weakness 780.79 ; [facility] current use of anticoagulant therapy V58.61 and Yeast vaginitis 112.1 [place] [address] [place] [id number] [address] [place] [phone] Dec, [place] [address] [address] Dec, Cervicalgia 723.1 ; Tachycar yoseph 785.0 ; Pseudotumor cerebri 348.2 and History of venous thromboembolism V12.51 [place] [address] [address] Nov, [place] [address] [address] Nov, [place] [address] [address] Nov, Tachycardia 785.0 ; Pseudotu mor cerebri 348.2 ; Anxiety 300.00 and History of venous thromboembolism V12.51 [facility] [address] [id number] [address] [place] [phone] Nov, [facility] [address] [id number] [address] [place] [phone] 18 Nov, 2014 [facility] [address] [id number] [address] [place] [address] Nov, [facility] [address] [id number] [address] [place] [phone] Nov, [facility] [address] [facility] [id number] [address] [place] [address] Nov, [facility] [address] [facility] [id number] [address] [place] [phone] Nov, [facility] [address] [facility] [id number] [address] [place] [address] Nov, [facility] [address] [facility] [id number] [address] [place] [address] October, [facility] [address] [facility] [id number] [address] [place] [phone] October, [facility] [address] [place] [id number] [address] [place] [phone] October, Pain in thoracic spine 724.[address] [facility] [address] [id number] [address] [place] [phone] October, [facility] [address] [id number] [address] [place] [phone] October, [facility] [address] [facility] [id number] [address] [place] [phone] [address], [address] [facility] [address] [facility] [id number] [address] [place] [phone] Sep, [facility] [address] [id number] [facility] [address] Aug, [facility] [address] [id number] [address] [place] [address], [place] [address] Aug, [facility] [address] [id number] [address] [place] [address], [place] [address] Aug, [facility] [address] [id number] [address] [place] [address], [place] [address] Aug, [facility] [address] [id number] [address] [place] [address], [place] [address] Aug, [facility] [address] [id number] [address] [place] [address], [place] [address] Aug, [facility] [address] [id number] [address] [place] [address], [place] [address] Aug, [facility] [address] [id number] [address] [place] [address], [place] [address] Aug, [facility] [address] [id number] [address] [place] [address], [place] [address] Aug, [facility] [address] [id number] [address] [place] [address], [place] [address] Aug, [facility] [address] [id number] [address] [place] [address], [place] [address] Aug, [facility] [address] [id number] [address] [place] [address], [place] [address] Aug, 2014 [facility] [address] [id number] [address] [place] [address], [place] [address] Jul, [facility] [address] [id number] [address] [place] [address], [place] [address] Jul, [facility] [address] [id number] [address] [place] [address], [place] [address] Jul, [facility] [address] [id number] [address] [place] [address], [place] [address] Jul, [facility] [address] [id number] [address] [place] [address], [place] [address] 23 Jul, 2014 [facility] [address] [id number] [address] [place] [address], [place] [address] 23 Jul, 2014 [facility] [address] [id number] [address] [place] [address], [place] [address] 23 Jul, 2014 [facility] [address] [id number] [address] [place] [address], [place] [address] 23 Jul, 2014 [facility] [address] [id number] [address] [place] [address], [place] [address] 20 Jul, 2014 [facility] [address] [id number] [address] [place] [address], [place] [address] 20 Jul, 2014 [facility] [address] [id number] [address] [place] [address], [place] [address] 19 Jul, 2014 [facility] [address] [id number] [address] [place] [address], [place] [address] 19 Jul, 2014 [facility] [address] [id number] [address] [place] [address], [place] [address] 17 Jul, 2014 [facility] [address] [id number] [address] [place] [address], [place] [address] 17 Jul, 2014 [facility] [address] [id number] [address] [place] [address], [place] [address] 16 Jul, 2014 [facility] [address] [id number] [address] [place] [address], [place] [address] 16 Jul, 2014 [facility] [address] [id number] [address] [place] [address], [place] [address] 16 Jul, 2014 [facility] [address] [id number] [address] [place] [address] 16 Jul, 2014 [facility] [address] [id number] [address] [place] [id number] 13 Jul, 2014 [facility] [address] [id number] [address] [place] [address], [place] [address] Jul, [facility] [address] [id number] [address] [place] [address], [place] [address] Jul, [facility] [address] [id number] [address] [place] [address], [place] [address] Jul, 2014 [facility] [address] [id number] [address] [place] [address], [place] [address] Jul, 2014 [facility] [address] [id number] [address] [place] [address], [place] [address] Jul, [facility] [address] [id number] [address] [place] [address], [place] [address] Jul, [facility] [address] [id number] [address] [place] [address], [place] [address] Jul, [facility] [address] [id number] [address] [place] [address], [place] [address] Jul, [facility] [address] [id number] [address] [place] [address], [place] [address] Jul, [facility] [address] [id number] [address] [place] [address], [place] [address] Jul, [facility] [address] [id number] [address] [place] [address], [place] [address] Jul, [facility] [address] [id number] [address] [place] [address], [place] [address] Jun, [facility] [address] [id number] [address] [place] [address], [place] [address] Jun, [facility] [address] [id number] [address] [place] [address], [place] [address] Jun, [facility] [address] [id number] [address] [place] [address], [place] [address] Jun, [facility] [address] [id number] [address] [place] [address], [place] [address] Jun, [facility] [address] [id number] [address] [place] [address], [place] [address] Jun, [facility] [address] [id number] [address] [place] [address], [place] [address] Jun, [facility] [address] [id number] [address] [place] [address], [place] [address] Jun, [facility] [address] [id number] [address] [place] [address], [place] [address] Jun, [facility] [address] [id number] [address] [place] [address], [place] [address] Jun, [facility] [address] [id number] [address] [place] [address], [place] [address] Jun, [facility] [address] [id number] [address] [place] [address], [place] [address] Jun, [facility] [address] [id number] [address] [place] [address], [place] [address] Jun, [facility] [address] [id number] [address] [place] [address], [place] [address] Jun, [facility] [address] [id number] [address] [place] [address], [place] [address] Jun, [facility] [address] [id number] [address] [place] [address], [place] [address] Jun, [facility] [address] [id number] [address] [place] [address], [place] [address] Jun, [facility] [address] [id number] [address] [place] [address], [place] [address] Jun, [facility] [address] [id number] [address] [place] [address], [place] [address] Jun, [facility] [address] [id number] [address] [place] [address], [place] [address] Jun, [facility] [address] [id number] [address] [place] [address], [place] [address] May, [facility] [address] [id number] [address] [place] [address], [place] [address] May, [facility] [address] [id number] [address] [place] [address], [place] [address] May, [facility] [address] [id number] [address] [place] [address], [place] [address] May, [facility] [address] [id number] [address] [place] [address], [place] [address] May, [facility] [address] [id number] [address] [place] [address], [place] [address] May, [facility] [address] [id number] [address] [place] [address], [place] [address] May, [facility] [address] [id number] [address] [place] [address], [place] [address] May, [facility] [address] [id number] [address] [place] [address], [place] [address] May, [facility] [address] [id number] [address] [place] [address], [place] [address] May, [facility] [address] [id number] [address] [place] [address], [place] [address] May, [facility] [address] [id number] [address] [place] [address], [place] [address] 18 May, 2014 [facility] [address] [id number] [address] [place] [address], [place] [address] 18 May, 2014 [facility] [address] [id number] [address] [place] [address], [place] [address] 17 May, 2014 [facility] [address] [id number] [address] [place] [address], [place] [address] 16 May, 2014 [facility] [address] [id number] [address] [place] [address], [place] [address] 16 May, 2014 [facility] [address] [id number] [address] [place] [address], [place] [address] 15 May, 2014 [facility] [address] [id number] [address] [place] [address], [place] [address] 15 May, 2014 [facility] [address] [id number] [address] [place] [address], [place] [address] May, [facility] [address] [id number] [address] [place] [address], [place] [address] May, [facility] [address] [id number] [address] [place] [address], [place] [address] May, [facility] [address] [id number] [address] [place] [address], [place] [address] May, [facility] [address] [id number] [address] [place] [address], [place] [address] May, [facility] [address] [id number] [address] [place] [address], [place] [address] May, [facility] [address] [id number] [address] [place] [address], [place] [address] May, [facility] [address] [id number] [address] [place] [address], [place] [address] May, [facility] [address] [id number] [address] [place] [address], [place] [address] May, [facility] [address] [id number] [address] [place] [address], [place] [address] May, [facility] [address] [id number] [address] [place] [address], [place] [address] May, [facility] [address] [id number] [address] [place] [address], [place] [address] May, [facility] [address] [id number] [address] [place] [address], [place] [address] May, [facility] [address] [id number] [address] [place] [address], [place] [address] May, [facility] [address] [id number] [address] [place] [address], [place] [address] May, [facility] [address] [id number] [address] [place] [address], [place] [address] May, [facility] [address] [id number] [address] [place] [address], [place] [address] Apr, [facility] [address] [id number] [address] [place] [address], [place] [address] Apr, [facility] [address] [id number] [address] [place] [address], [place] [address] Apr, [facility] [address] [id number] [address] [place] [address], [place] [address] Apr, [facility] [address] [id number] [address] [place] [address], [place] [address] Apr, [facility] [address] [id number] [address] [place] [address], [place] [address] Apr, [facility] [address] [id number] [address] [place] [address], [place] [address] Apr, [facility] [address] [id number] [address] [place] [address], [place] [address] Apr, [facility] [address] [id number] [address] [place] [address], [place] [address] Apr, [facility] [address] [id number] [address] [place] [address], [place] [address] Apr, [facility] [address] [id number] [address] [place] [address], [place] [address] Mar, [facility] [address] [id number] [address] [place] [address], [place] [address] Mar, [facility] [address] [id number] [address] [place] [address] [address] Mar, [facility] [address] [id number] [address] [place] [address], [place] [address] 31 Mar, 2013 [facility] [address] [id number] [address] [place] [address], [place] [address] Mar, [facility] [address] [id number] [address] [place] [address], [place] [address] 30 Mar, 2014 [facility] [address] [id number] [address] [place] [address], [place] [address] Mar, [facility] [address] [id number] [address] [place] [address], [place] [address] Mar, [facility] [address] [id number] [address] [place] [address], [place] [address] Mar, [facility] [address] [id number] [address] [place] [address], [place] [address] Mar, [facility] [address] [id number] [address] [place] [id number] Mar, [facility] [address] [id number] [address] [place] [id number] Mar, [facility] [address] [id number] [address] [place] [id number] Mar, [facility] [address] [id number] [address] [place] [id number] Mar, 2013 [facility] [address] [id number] [address] [place] [id number] Mar, 2013 [facility] [address] [id number] [address] [place] [id number] Mar, [facility] [address] [id number] [address] [place] [id number] Mar, [facility] [address] [id number] [address] [place] [id number] Mar, 2013 [facility] [address] [id number] [address] [place] [address], [place] [address] 02 Mar, 2013 [facility] [address] [id number] [address] [place] [address], [place] [address] 02 Mar, 2013 [facility] [address] [id number] [address] [place] [address], [place] [address] 05 Sep, 2013 [facility] [address] [id number] [address] [place] [address], [place] [address] 05 Sep, 2013 [facility] [address] [id number] [address] [place] [address], [place] [address] 04 Sep, 2013 [facility] [address] [id number] [address] [place] [address], [place] [address] 04 Sep, 2013 [facility] [address] [id number] [address] [place] [address], [place] [address] 03 Feb, 2013 [facility] [address] [id number] [address] [place] [address], [place] [address] 03 Feb, 2013 [facility] [address] [id number] [address] [place] [address], [place] [address] 02 Feb, 2013 [facility] [address] [id number] [address] [place] [address], [place] [address] Feb, 2013 [facility] [address] [id number] [address] [place] [address], [place] [address] 02 Feb, 2013 [facility] [address] [id number] [address] [place] [address], [place] [address] Feb, 2013 [facility] [address] [id number] [address] [place] [address], [place] [address] Jan, [facility] [address] [id number] [address] [place] [address], [place] [address] Jan, [facility] [address] [id number] [address] [place] [address], [place] [address] Jan, [facility] [address] [id number] [address] [place] [address], [place] [address] Jan, [facility] [address] [id number] [facility] [address] Jan, [facility] [address] [id number] [address] [place] [address], [place] [address] Jan, [facility] [address] [id number] [address] [place] [address], [place] [address] Jan, [facility] [address] [id number] [address] [place] [address], [place] [address] Jan, [facility] [address] [id number] [address] [place] [address], [place] [address] Jan, [facility] [address] [id number] [address] [place] [address], [place] [address] Jan, [facility] [address] [id number] [address] [place] [address], [place] [address] Jan, [facility] [address] [id number] [address] [place] [address], [place] [address] Jan, [facility] [address] [id number] [address] [place] [address], [place] [address] Dec, [facility] [address] [id number] [address] [place] [address], [place] [address] Dec, [facility] [address] [id number] [address] [place] [address], [place] [address] Dec, [facility] [address] [id number] [address] [place] [address], [place] [address] Dec, [facility] [address] [id number] [address] [place] [address], [place] [address] Dec, [facility] [address] [id number] [address] [place] [place] [address], [place] [address] Dec, [facility] [address] [id number] [address] [place] [address], [place] [address] Dec, [facility] [address] [id number] [address] [place] [address], [place] [address] Dec, [facility] [address] [id number] [facility] [place] [address] Dec, [facility] [address] [id number] [address] [place] [address], [place] [address] Dec, [facility] [address] [id number] [address] [place] [address], [place] [address] Dec, [facility] [address] [id number] [address] [place] [address], [place] [address] Dec, [facility] [address] [id number] [address] [place] [address], [place] [address] Nov, [facility] [address] [id number] [address] [place] [address], [place] [address] Nov, [facility] [address] [id number] [address] [place] [address], [place] [address] Nov, [facility] [address] [id number] [address] [place] [address], [place] [address] Nov, [facility] [address] [id number] [address] [place] [address], [place] [address] Nov, [facility] [address] [id number] [address] [place] [address], [place] [address] Nov, [facility] [address] [id number] [address] [place] [address], [place] [address] Nov, [facility] [address] [id number] [address] [place] [address], [place] [address] Nov, [facility] [address] [id number] [address] [place] [address], [place] [address] Nov, [facility] [address] [id number] [address] [place] [address], [place] [address] Nov, [facility] [address] [id number] [address] [place] [address], [place] [address] Nov, [facility] [address] [id number] [facility] [place] [address] Nov, [facility] [address] [id number] [address] [place] [address], [place] [address] Nov, [facility] [address] [id number] [address] [place] [address], [place] [address] Nov, [facility] [address] [id number] [address] [place] [address], [place] [address] October, [facility] [address] [id number] [address] [place] [address], [place] [address] October, [facility] [address] [id number] [address] [place] [address], [place] [address] October, [facility] [address] [id number] [address] [place] [address], [place] [address] October, [facility] [address] [id number] [address] [place] [address], [place] [address] October, [facility] [address] [id number] [address] [place] [address], [place] [address] October, [facility] [address] [id number] [address] [place] [address], [place] [address] October, [facility] [address] [id number] [address] [place] [address], [place] [address] October, [facility] [address] [id number] [address] [place] [address], [place] [address] October, [facility] [address] [id number] [address] [place] [address], [place] [address] October, [facility] [address] [id number] [address] [place] [address], [place] [address] October, [facility] [address] [id number] [address] [place] [address], [place] [address] October, [facility] [address] [id number] [address] [place] [address], [place] [address] Sep, [facility] [address] [id number] [facility] [place] [address] Sep, [facility] [address] [id number] [address] [place] [address], [place] [address] Sep, [facility] [address] [id number] [facility] [address] Sep, [facility] [address] [id number] [address] [place] [address], [place] [address] Sep, [facility] [address] [id number] [address] [place] [address], [place] [address] Sep, [facility] [address] [id number] [address] [place] [address], [place] [address] Aug, [facility] [address] [id number] [address] [place] [address], [place] [address] Aug, [facility] [address] [id number] [address] [place] [address], [place] [address] Aug, [facility] [address] [id number] [address] [place] [address], [place] [address] Aug, [facility] [address] [id number] [address] [place] [address], [place] [address] Aug, [facility] [address] [id number] [address] [place] [address], [place] [address] Aug, [facility] [address] [id number] [address] [place] [address], [place] [address] Jul, [facility] [address] [id number] [address] [place] [address], [place] [address] Jul, [facility] [address] [id number] [address] [place] [address], [place] [address] Jul, [facility] [address] [id number] [address] [place] [address], [place] [address] Jul, [facility] [address] [id number] [address] [place] [address], [place] [address] 13 Jul, 2013 [facility] [address] [id number] [address] [place] [address], [place] [address] Jul, [facility] [address] [id number] [address] [place] [address], [place] [address] Jul, [facility] [address] [id number] [address] [place] [address], [place] [address] Jul, [facility] [address] [id number] [address] [place] [address], [place] [address] Jul, [facility] [address] [id number] [address] [place] [address], [place] [address] Jul, [facility] [address] [id number] [address] [place] [address], [place] [address] Jun, [facility] [address] [id number] [address] [place] [address], [place] [address] Jun, [facility] [address] [id number] [address] [place] [address], [place] [address] Jun, [facility] [address] [id number] [address] [place] [address], [place] [address] Jun, [facility] [address] [id number] [address] [place] [address], [place] [address] Jun, [facility] [address] [id number] [address] [place] [address], [place] [address] Jun, [facility] [address] [id number] [address] [place] [address], [place] [address] Jun, [facility] [address] [id number] [address] [place] [address], [place] [address] Jun, [facility] [address] [id number] [address] [place] [address], [place] [address] May, [facility] [address] [id number] [address] [place] [address], [place] [address] May, [facility] [address] [id number] [address] [place] [address], [place] [address] May, [facility] [address] [id number] [address] [place] [address], [place] [address] May, [facility] [address] [id number] [address] [place] [address], [place] [address] May, [facility] [address] [id number] [address] [place] [address], [place] [address] May, [facility] [address] [id number] [address] [place] [address], [place] [address] May, [facility] [address] [id number] [address] [place] [address], [place] [address] May, [facility] [address] [id number] [address] [place] [address], [place] [address] Apr, [facility] [address] [id number] [address] [place] [address] Apr, [facility] [address] [id number] [address] [place] [address], [place] [address] Apr, [facility] [address] [id number] [address] [place] [address] Apr, [facility] [address] [id number] [address] [place] [address] Apr, [facility] [address] [id number] [address] [place] [address] Apr, [facility] [address] [id number] [address] [place] [address], [place] [address] Mar, [facility] [address] [id number] [address] [place] [address] Mar, [facility] [address] [id number] [address] [place] [address], [place] [address] Mar, [facility] [address] [id number] [address] [place] [address], [place] [address] Mar, [facility] [address] [id number] [address] [place] [address], [place] [address] Mar, [facility] [address] [id number] [address] [place] [address], [place] [address] Mar, [facility] [address] [id number] [address] [place] [address], [place] [address] Mar, [facility] [address] [id number] [address] [place] [address], [place] [address] 30 Feb, 2012 [facility] [address] [id number] [address] [place] [address], [place] [address] 30 Feb, 2013 [facility] [address] [id number] [address] [place] [address], [place] [address] 27 Feb, 2013 [facility] [address] [id number] [address] [place] [address], [place] [address] Feb, 2012 [facility] [address] [id number] [address] [place] [address], [place] [address] Feb, [facility] [address] [id number] [address] [place] [address], [place] [address] Feb, [facility] [address] [id number] [address] [place] [address], [place] [address] Jan, [facility] [address] [id number] [address] [place] [address], [place] [address] Jan, [facility] [address] [id number] [address] [place] [address], [place] [address] Jan, [facility] [address] [id number] [address] [place] [address], [place] [address] Jan, [facility] [address] [id number] [address] [place] [address], [place] [address] Jan, [facility] [address] [id number] [address] [place] [address], [place] [address] Jan, [facility] [address] [id number] [address] [place] [address], [place] [address] Jan, [facility] [address] [id number] [address] [place] [address], [place] [address] Jan, [facility] [address] [id number] [address] [place] [address], [place] [address] Jan, [facility] [address] [id number] [address] [place] [address], [place] [address] Dec, [facility] [address] [id number] [address] [place] [address], [place] [address] Dec, [facility] [address] [id number] [address] [place] [address], [place] [address] Dec, [facility] [address] [id number] [address] [place] [address], [place] [address] Dec, [facility] [address] [id number] [address] [place] [address], [place] [address] Dec, [facility] [address] [id number] [address] [place] [address], [place] [address] Dec, [facility] [address] [id number] [address] [place] [address], [place] [address] Dec, [facility] [address] [id number] [address] [place] [address], [place] [address] Dec, [facility] [address] [id number] [address] [place] [address], [place] [address] Dec, [facility] [address] [id number] [address] [place] [address], [place] [address] Dec, [facility] [address] [id number] [address] [place] [address], [place] [address] Dec, [facility] [address] [id number] [address] [place] [address], [place] [address] Dec, [facility] [address] [id number] [address] [place] [address], [place] [address] Dec, [facility] [address] [id number] [address] [place] [address], [place] [address] Nov, [facility] [address] [id number] [address] [place] [address], [place] [address] Nov, [facility] [address] [id number] [address] [place] [address], [place] [address] Nov, [facility] [address] [id number] [address] [place] [address], [place] [address] Nov, [facility] [address] [id number] [address] [place] [address], [place] [address] October, [facility] [address] [id number] [address] [place] [address], [place] [address] October, [facility] [address] [id number] [address] [place] [address], [place] [address] October, [facility] [address] [id number] [address] [place] [address], [place] [address] October, [facility] [address] [id number] [address] [place] [address], [place] [address] October, [facility] [address] [id number] [address] [place] [address], [place] [address] October, [facility] [address] [id number] [address] [place] [address], [place] [address] Sep, [facility] [address] [id number] [address] [place] [address], [place] [address] Sep, [facility] [address] [id number] [address] [place] [address], [place] [address] Sep, [facility] [address] [id number] [address] [place] [address], [place] [address] Sep, [facility] [address] [id number] [address] [place] [address], [place] [address] Sep, [facility] [address] [id number] [facility] [place] [address] 16 Sep, 2012 [facility] [address] [id number] [address] [place] [address], [place] [address] 12 Sep, 2012 [facility] [address] [id number] [address] [place] [address], [place] [address] Sep, [facility] [address] [id number] [address] [place] [address], [place] [address] Sep, [facility] [address] [id number] [address] [place] [address], [place] [address] Sep, [facility] [address] [id number] [address] [place] [address], [place] [address] Sep, [facility] [address] [id number] [address] [place] [address], [place] [address] Aug, [facility] [address] [id number] [address] [place] [address], [place] [address] 25 Aug, 2012 [facility] [address] [id number] [address] [place] [address], [place] [address] 25 Aug, 2012 [facility] [address] [id number] [address] [place] [address], [place] [address] 21 Aug, 2012 [facility] [address] [id number] [address] [place] [address], [place] [address] 19 Aug, 2012 [facility] [address] [id number] [address] [place] [address], [place] [address] 18 Aug, 2012 [facility] [address] [id number] [address] [place] [address], [place] [address] 17 Aug, 2012 [facility] [address] [id number] [address] [place] [address], [place] [address] 15 Aug, 2012 [facility] [address] [id number] [address] [place] [address], [place] [address] 15 Aug, 2012 [facility] [address] [id number] [address] [place] [address], [place] [address] Aug, [facility] [address] [id number] [address] [place] [address], [place] [address] Aug, [facility] [address] [id number] [address] [place] [address], [place] [address] Aug, [facility] [address] [id number] [address] [place] [address], [place] [address] Jul, [facility] [address] [id number] [address] [place] [address], [place] [address] Jul, [facility] [address] [id number] [address] [place] [address], [place] [address] Jul, [facility] [address] [id number] [address] [place] [address], [place] [address] Jul, [facility] [address] [id number] [address] [place] [address], [place] [address] Jul, [facility] [address] [id number] [address] [place] [address], [place] [address] Jul, [facility] [address] [id number] [address] [place] [address], [place] [address] Jul, [facility] [address] [id number] [address] [place] [address], [place] [address] Jul, [facility] [address] [id number] [address] [place] [address], [place] [address] Jul, [facility] [address] [id number] [address] [place] [address], [place] [address] Jul, [facility] [address] [id number] [address] [place] [address], [place] [address] May, [facility] [address] [id number] [place] [id number] May, [facility] [address] [id number] [address] [place] [address], [place] [address] May, [facility] [address] [id number] [address] [place] [phone] May, [facility] [address] [facility] [id number] [address] [place] [phone] May, [facility] [address] [facility] [id number] [address] [place] [id number] Apr, [facility] [address] [id number] [place] [id number] Apr, [facility] [address] [facility] [id number] [address] [place] [id number] Apr, [facility] [address] [facility] [id number] [address] [place] [phone] Mar, [facility] [address] [id number] [place] [id number] Mar, [facility] [address] [facility] [id number] [address] [place] [phone] Mar, [facility] [address] [id number] [place] [id number] Feb, [facility] [address] [facility] [id number] [address] [place] [phone] Feb, [facility] [address] [facility] [id number] [address] [place] [phone] Feb, [facility] [place] [address] [id number] [place] [id number] Feb, [facility] [address] [id number] [place] [id number] Feb, [facility] [address] [id number] [place] [id number] Jan, [facility] [address] [id number] [address] [place] [address], [place] [address] Jan, [facility] [place] [address] [id number] [place] [id number] Jan, [facility] [place] [address] [id number] [place] [id number] Jan, [facility] [place] [address] [id number] [place] [id number] Jan, [facility] [address] [facility] [id number] [address] [place] [address], [place] [address] Jan, [facility] [address] [facility] [id number] [address] [place] [address], [place] [address] Jan, [facility] [address] [facility] [id number] [address] [place] [address], [place] [address] Aug, [facility] [place] [address] [id number] [place] [id number] Aug, [facility] [address] [facility] [id number] [address] [place] [address], [place] [address] Jul, [facility] [address] [facility] [id number] [address] [place] [address], [place] [address] Jul, [facility] [address] [facility] [id number] [address] [place] [address], [place] [address] Jul, [facility] [place] [address] [id number] [place] [id number] Jul, [facility] [address] [facility] [id number] [address] [place] [address], [place] [address] Jul, [facility] [place] [address] [id number] [place] [id number] Jul, [facility] [address] [facility] [id number] [address] [place] [address], [place] [address] Jul, [facility] [place] [address] [id number] [place] [id number] Jul, [facility] [place] [address] [id number] [place] [id number] Jul, [facility] [place] [address] [id number] [place] [id number] Jul, [facility] [address] [facility] [id number] [address] [place] [address], [place] [address] May, [facility] [address] [id number] [address] [place] [phone] May, [facility] [address] [id number] [address] [place] [phone] May, [facility] [address] [id number] [address] [place] [id number] Apr, [facility] [address] [id number] [address] [place] [phone] Jan, [facility] [address] [id number] [address] [place] [id number] Jan, [facility] [address] [id number] [address] [place] [id number] Dec, [facility] [address] [id number] [address] [place] [phone] Dec, [facility] [address] [id number] [address] [place] [id number] May, [facility] [address] [id number] [address] [place] [id number] Mar, [facility] [address] [id number] [address] [place] [phone] Mar, [facility] [address] [id number] [address] [place] [id number] Jan, IMMUNIZATIONS No Known Immunizations SOCIAL HISTORY [...]
--- OUTSIDE RECORDS SUMMARY | 2020-01-28 12:53 | XMS REPORT ---
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 Name Role Phone CEZAR JIMI Unavailable PROBLEMS Type Condition ICD9-CM Code XWO82-RV Code Onset Dates Condition S tatus SNOMED Code Problem Chronic pain syndrome G89.4 Active 083656435 Problem Sore throat J02.9 Active 79368549 3 Problem Choriocarcinoma C58 Active 1881 60429 Problem dowel pointer current use of anticoagulant Z79.01 Active 334927849 Problem History of venous thromboembolism V12.51 Active 624856082 Problem Cellulitis of unspecified part of limb L03.119 Active 753839504 Problem Gastroesophageal reflux disease without esophagitis K21.9 Active 463913215 Problem History of pulmonary embolism Z86.711 Active 273331764 Problem Pseudotumor cerebri G93.2 Active 70881287 Problem History of DVT (deep vein thrombosis) Z86.718 Active 315147451 ALLERGIES No Information ENCOUNTERS Encounter Location Date Diagnosis [place] [id number] [facility] [id number] [address] [place] [address] Apr, residential (current) use of 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 Z79.01 [facility] [address] [facility] [id number] [address] [place] [address] Apr, residential 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.01 [facility] [address] [facility] [id number] [address] [place] [address] Apr, Cellulitis of unspecified pa rt of limb L03.119 ; Allergic contact dermatitis due to adhesives L23.1 and Chronic pain syndrome G89.4 [facility] [address] [facility] [id number] [address] [place] [address] Apr, [place] [address] [place] [id number] [address] [place] [address] Apr, dowel pointer 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.01 ; Cellulitis of unspecified part of limb L03.119 ; Chronic pain syndrome G89.4 and Anxiety F41.9 [facility] [address] [place] [id number] [address] [place] [address] 16 Apr, 2015 [facility] [address] [place] [id number] [place] [address] Apr, [place] [address] [place] [id number] [place] [address] Mar, [place] [address] [address] Mar, [place] [address] [address] Mar, Sore throat J02.9 ; Gastroes ophageal reflux disease without esophagitis K21.9 ; Pseudotumor cerebri G93.2 ; Chronic pain syndrome G89.4 ; Choriocarcinoma C58 ; History of pulmonary embolism Z86.711 ; History of DVT (deep vein thrombosis) Z86.718 ; Anxiety F41.9 and Tachycardia R00.0 [place] [address] [address] Feb, Anxiety 300.00 and Chronic p ain 338.29 [place] [address] [place] [id number] [address] [place] [address] Feb, [place] [address] [place] [id number] [address] [place] [address] Feb, [place] [address] [address] Jan, dowel pointer current use of ant icoagulant therapy V58.61 and Dysuria 788.1 [place] [address] [place] [id number] [place] [address] Jan, Dysuria 788.1 [facility] [address] [place] [id number] [address] [place] [address] Jan, Anxiety 300.00 and Chronic p ain 338.29 [facility] [address] [place] [id number] [place] [address] Jan, [facility] [address] [address] Jan, [facility] [address] [address] Jan, [place] [address] [address] Dec, Weakness 780.79 [place] [address] [address] Dec, residential current use of ant icoagulant therapy V58.61 [place] [address] [address] Dec, Palpitations 785.1 ; Tremor 781.0 ; Weakness 780.79 ; residential current use of anticoagulant therapy V58.61 and Yeast vaginitis 112.1 [place] [address] [place] [id number] [address] [place] [address] Dec, [place] [address] [address] Dec, Cervicalgia 723.1 ; Tachycar yoseph 785.0 ; Pseudotumor cerebri 348.2 and History of venous thromboembolism V12.51 [place] [address] [address] Nov, [place] [address] [address] Nov, [place] [address] [address] Nov, Tachycardia 785.0 ; Pseudotu mor cerebri 348.2 ; Anxiety 300.00 and History of venous thromboembolism V12.51 [facility] [address] [id number] [address] [place] [address] Nov, [facility] [address] [id number] [address] [place] [address] 18 Nov, 2014 [facility] [address] [id number] [address] [place] [address] Nov, [facility] [address] [id number] [address] [place] [address] Nov, [facility] [address] [facility] [id number] [address] [place] [address] Nov, [facility] [address] [facility] [id number] [address] [place] [address] Nov, [facility] [address] [facility] [id number] [address] [place] [address] Nov, [facility] [address] [facility] [id number] [address] [place] [address] October, [facility] [address] [facility] [id number] [address] [place] [address] October, [facility] [address] [place] [id number] [address] [place] [address] October, Pain in thoracic spine 724.1 and Tachycardia 785.0 [facility] [address] [id number] [address] [place] [address] October, [facility] [address] [id number] [address] [place] [address] October, [facility] [address] [facility] [id number] [address] [place] [address] 14 Sep, 2014 [facility] [address] [facility] [id number] [address] [place] [address] Sep, [facility] [address] [id number] [facility] [place] [address] Aug, [facility] [address] [id number] [address] [place] [address], [place] [address] Aug, [facility] [address] [id number] [address] [place] [address], [place] [address] Aug, [facility] [address] [id number] [address] [place] [address], [place] [address] Aug, [facility] [address] [id number] [address] [place] [address], [place] [address] Aug, [facility] [address] [id number] [address] [place] [address], [place] [address] Aug, [facility] [address] [id number] [address] [place] [address], [place] [address] Aug, [facility] [address] [id number] [address] [place] [address], [place] [address] Aug, [facility] [address] [id number] [address] [place] [address], [place] [address] Aug, [facility] [address] [id number] [address] [place] [address], [place] [address] Aug, [facility] [address] [id number] [address] [place] [address], [place] [address] Aug, [facility] [address] [id number] [address] [place] [address], [place] [address] Aug, 2014 [facility] [address] [id number] [address] [place] [address], [place] [address] Jul, [facility] [address] [id number] [address] [place] [address], [place] [address] Jul, [facility] [address] [id number] [address] [place] [address], [place] [address] Jul, [facility] [address] [id number] [address] [place] [address], [place] [address] Jul, [facility] [address] [id number] [address] [place] [address], [place] [address] 23 Jul, 2014 [facility] [address] [id number] [address] [place] [address], [place] [address] 23 Jul, 2014 [facility] [address] [id number] [address] [place] [address], [place] [address] 23 Jul, 2014 [facility] [address] [id number] [address] [place] [address], [place] [address] 23 Jul, 2014 [facility] [address] [id number] [address] [place] [address], [place] [address] 20 Jul, 2014 [facility] [address] [id number] [address] [place] [address], [place] [address] 20 Jul, 2014 [facility] [address] [id number] [address] [place] [address], [place] [address] 19 Jul, 2014 [facility] [address] [id number] [address] [place] [address], [place] [address] 19 Jul, 2014 [facility] [address] [id number] [address] [place] [address], [place] [address] 17 Jul, 2014 [facility] [address] [id number] [address] [place] [address], [place] [address] 17 Jul, 2014 [facility] [address] [id number] [address] [place] [address], [place] [address] 16 Jul, 2014 [facility] [address] [id number] [address] [place] [address], [place] [address] 16 Jul, 2014 [facility] [address] [id number] [address] [place] [address], [place] [address] 16 Jul, 2014 [facility] [address] [id number] [address] [place] [address] 16 Jul, 2014 [facility] [address] [id number] [address] [place] [address] 13 Jul, 2014 [facility] [address] [id number] [address] [place] [address], [place] [address] Jul, [facility] [address] [id number] [address] [place] [address], [place] [address] Jul, [facility] [address] [id number] [address] [place] [address], [place] [address] Jul, 2014 [facility] [address] [id number] [address] [place] [address], [place] [address] Jul, 2014 [facility] [address] [id number] [address] [place] [address], [place] [address] Jul, [facility] [address] [id number] [address] [place] [address], [place] [address] Jul, [facility] [address] [id number] [address] [place] [address], [place] [address] Jul, [facility] [address] [id number] [address] [place] [address], [place] [address] Jul, [facility] [address] [id number] [address] [place] [address], [place] [address] Jul, [facility] [address] [id number] [address] [place] [address], [place] [address] Jul, [facility] [address] [id number] [address] [place] [address], [place] [address] Jul, [facility] [address] [id number] [address] [place] [address], [place] [address] Jun, [facility] [address] [id number] [address] [place] [address], [place] [address] Jun, [facility] [address] [id number] [address] [place] [address], [place] [address] Jun, [facility] [address] [id number] [address] [place] [address], [place] [address] Jun, [facility] [address] [id number] [address] [place] [address], [place] [address] Jun, [facility] [address] [id number] [address] [place] [address], [place] [address] Jun, [facility] [address] [id number] [address] [place] [address], [place] [address] Jun, [facility] [address] [id number] [address] [place] [address], [place] [address] Jun, [facility] [address] [id number] [address] [place] [address], [place] [address] Jun, [facility] [address] [id number] [address] [place] [address], [place] [address] Jun, [facility] [address] [id number] [address] [place] [address], [place] [address] Jun, [facility] [address] [id number] [address] [place] [address], [place] [address] Jun, [facility] [address] [id number] [address] [place] [address], [place] [address] Jun, [facility] [address] [id number] [address] [place] [address], [place] [address] Jun, [facility] [address] [id number] [address] [place] [address], [place] [address] Jun, [facility] [address] [id number] [address] [place] [address], [place] [address] Jun, [facility] [address] [id number] [address] [place] [address], [place] [address] Jun, [facility] [address] [id number] [address] [place] [address], [place] [address] Jun, [facility] [address] [id number] [address] [place] [address], [place] [address] Jun, [facility] [address] [id number] [address] [place] [address], [place] [address] Jun, [facility] [address] [id number] [address] [place] [address], [place] [address] May, [facility] [address] [id number] [address] [place] [address], [place] [address] May, [facility] [address] [id number] [address] [place] [address], [place] [address] May, [facility] [address] [id number] [address] [place] [address], [place] [address] May, [facility] [address] [id number] [address] [place] [address], [place] [address] May, [facility] [address] [id number] [address] [place] [address], [place] [address] May, [facility] [address] [id number] [address] [place] [address], [place] [address] May, [facility] [address] [id number] [address] [place] [address], [place] [address] May, [facility] [address] [id number] [address] [place] [address], [place] [address] May, [facility] [address] [id number] [address] [place] [address], [place] [address] May, [facility] [address] [id number] [address] [place] [address], [place] [address] May, [facility] [address] [id number] [address] [place] [address], [place] [address] 18 May, 2014 [facility] [address] [id number] [address] [place] [address], [place] [address] 18 May, 2014 [facility] [address] [id number] [address] [place] [address], [place] [address] 17 May, 2014 [facility] [address] [id number] [address] [place] [address], [place] [address] 16 May, 2014 [facility] [address] [id number] [address] [place] [address], [place] [address] 16 May, 2014 [facility] [address] [id number] [address] [place] [address], [place] [address] 15 May, 2014 [facility] [address] [id number] [address] [place] [address], [place] [address] 15 May, 2014 [facility] [address] [id number] [address] [place] [address], [place] [address] May, [facility] [address] [id number] [address] [place] [address], [place] [address] May, [facility] [address] [id number] [address] [place] [address], [place] [address] May, [facility] [address] [id number] [address] [place] [address], [place] [address] May, [facility] [address] [id number] [address] [place] [address], [place] [address] May, [facility] [address] [id number] [address] [place] [address], [place] [address] May, [facility] [address] [id number] [address] [place] [address], [place] [address] May, [facility] [address] [id number] [address] [place] [address], [place] [address] May, [facility] [address] [id number] [address] [place] [address], [place] [address] May, [facility] [address] [id number] [address] [place] [address], [place] [address] May, [facility] [address] [id number] [address] [place] [address], [place] [address] May, [facility] [address] [id number] [address] [place] [address], [place] [address] May, [facility] [address] [id number] [address] [place] [address], [place] [address] May, [facility] [address] [id number] [address] [place] [address], [place] [address] May, [facility] [address] [id number] [address] [place] [address], [place] [address] May, [facility] [address] [id number] [address] [place] [address], [place] [address] May, [facility] [address] [id number] [address] [place] [address], [place] [address] Apr, [facility] [address] [id number] [address] [place] [address], [place] [address] Apr, [facility] [address] [id number] [address] [place] [address], [place] [address] Apr, [facility] [address] [id number] [address] [place] [address], [place] [address] Apr, [facility] [address] [id number] [address] [place] [address], [place] [address] Apr, [facility] [address] [id number] [address] [place] [address], [place] [address] Apr, [facility] [address] [id number] [address] [place] [address], [place] [address] Apr, [facility] [address] [id number] [address] [place] [address], [place] [address] Apr, [facility] [address] [id number] [address] [place] [address], [place] [address] Apr, [facility] [address] [id number] [address] [place] [address], [place] [address] Apr, [facility] [address] [id number] [address] [place] [address], [place] [address] Mar, [facility] [address] [id number] [address] [place] [address], [place] [address] Mar, [facility] [address] [id number] [address] [place] [id number] [address] Mar, [facility] [address] [id number] [address] [place] [address], [place] [address] 31 Mar, 2013 [facility] [address] [id number] [address] [place] [address], [place] [address] Mar, [facility] [address] [id number] [address] [place] [address], [place] [address] 30 Mar, 2014 [facility] [address] [id number] [address] [place] [address], [place] [address] Mar, [facility] [address] [id number] [address] [place] [address], [place] [address] Mar, [facility] [address] [id number] [address] [place] [address], [place] [address] Mar, [facility] [address] [id number] [address] [place] [address], [place] [address] Mar, [facility] [address] [id number] [address] [place] [id number] Mar, [facility] [address] [id number] [address] [place] [address] Mar, [facility] [address] [id number] [address] [place] [id number] Mar, [facility] [address] [id number] [address] [place] [address] Mar, 2013 [facility] [address] [id number] [address] [place] [address] Mar, 2013 [facility] [address] [id number] [address] [place] [address] Mar, [facility] [address] [id number] [address] [place] [id number] Mar, [facility] [address] [id number] [address] [place] [id number] Mar, 2013 [facility] [address] [id number] [address] [place] [address], [place] [address] 02 Mar, 2013 [facility] [address] [id number] [address] [place] [address], [place] [address] 02 Mar, 2013 [facility] [address] [id number] [address] [place] [address], [place] [address] 05 Sep, 2013 [facility] [address] [id number] [address] [place] [address], [place] [address] 05 Sep, 2013 [facility] [address] [id number] [address] [place] [address], [place] [address] 04 Sep, 2013 [facility] [address] [id number] [address] [place] [address], [place] [address] 04 Sep, 2013 [facility] [address] [id number] [address] [place] [address], [place] [address] 03 Feb, 2013 [facility] [address] [id number] [address] [place] [address], [place] [address] 03 Feb, 2013 [facility] [address] [id number] [address] [place] [address], [place] [address] 02 Feb, 2013 [facility] [address] [id number] [address] [place] [address], [place] [address] Feb, 2013 [facility] [address] [id number] [address] [place] [address], [place] [address] 02 Feb, 2013 [facility] [address] [id number] [address] [place] [address], [place] [address] Feb, 2013 [facility] [address] [id number] [address] [place] [address], [place] [address] Jan, [facility] [address] [id number] [address] [place] [address], [place] [address] Jan, [facility] [address] [id number] [address] [place] [address], [place] [address] Jan, [facility] [address] [id number] [address] [place] [address], [place] [address] Jan, [facility] [address] [id number] [facility] [place] [address] Jan, [facility] [address] [id number] [address] [place] [address], [place] [address] Jan, [facility] [address] [id number] [address] [place] [address], [place] [address] Jan, [facility] [address] [id number] [address] [place] [address], [place] [address] Jan, [facility] [address] [id number] [address] [place] [address], [place] [address] Jan, [facility] [address] [id number] [address] [place] [address], [place] [address] Jan, [facility] [address] [id number] [address] [place] [address], [place] [address] Jan, [facility] [address] [id number] [address] [place] [address], [place] [address] Jan, [facility] [address] [id number] [address] [place] [address], [place] [address] Dec, [facility] [address] [id number] [address] [place] [address], [place] [address] Dec, [facility] [address] [id number] [address] [place] [address], [place] [address] Dec, [facility] [address] [id number] [address] [place] [address], [place] [address] Dec, [facility] [address] [id number] [address] [place] [address], [place] [address] Dec, [facility] [address] [id number] [address] [place] [address], [place] [address] Dec, [facility] [address] [id number] [address] [place] [address], [place] [address] Dec, [facility] [address] [id number] [address] [place] [address], [place] [address] Dec, [facility] [address] [id number] [facility] [place] [address] Dec, [facility] [address] [id number] [address] [place] [address], [place] [address] Dec, [facility] [address] [id number] [address] [place] [address], [place] [address] Dec, [facility] [address] [id number] [address] [place] [address], [place] [address] Dec, [facility] [address] [id number] [address] [place] [address], [place] [address] Nov, [facility] [address] [id number] [address] [place] [address], [place] [address] Nov, [facility] [address] [id number] [address] [place] [address], [place] [address] Nov, [facility] [address] [id number] [address] [place] [address], [place] [address] Nov, [facility] [address] [id number] [address] [place] [address], [place] [address] Nov, [facility] [address] [id number] [address] [place] [address], [place] [address] Nov, [facility] [address] [id number] [address] [place] [address], [place] [address] Nov, [facility] [address] [id number] [address] [place] [address], [place] [address] Nov, [facility] [address] [id number] [address] [place] [address], [place] [address] Nov, [facility] [address] [id number] [address] [place] [address], [place] [address] Nov, [facility] [address] [id number] [address] [place] [address], [place] [address] Nov, [facility] [address] [id number] [facility] [place] [address] Nov, [facility] [address] [id number] [address] [place] [address], [place] [address] Nov, [facility] [address] [id number] [address] [place] [address], [place] [address] Nov, [facility] [address] [id number] [address] [place] [address], [place] [address] October, [facility] [address] [id number] [address] [place] [address], [place] [address] October, [facility] [address] [id number] [address] [place] [address], [place] [address] October, [facility] [address] [id number] [address] [place] [address], [place] [address] October, [facility] [address] [id number] [address] [place] [address], [place] [address] October, [facility] [address] [id number] [address] [place] [address], [place] [address] October, [facility] [address] [id number] [address] [place] [address], [place] [address] October, [facility] [address] [id number] [address] [place] [address], [place] [address] October, [facility] [address] [id number] [address] [place] [address], [place] [address] October, [facility] [address] [id number] [address] [place] [address], [place] [address] October, [facility] [address] [id number] [address] [place] [address], [place] [address] October, [facility] [address] [id number] [address] [place] [address], [place] [address] October, [facility] [address] [id number] [address] [place] [address], [place] [address] Sep, [facility] [address] [id number] [facility] [place] [address] Sep, [facility] [address] [id number] [address] [place] [address], [place] [address] Sep, [facility] [address] [id number] [facility] [place] [address] Sep, [facility] [address] [id number] [address] [place] [address], [place] [address] Sep, [facility] [address] [id number] [address] [place] [address], [place] [address] Sep, [facility] [address] [id number] [address] [place] [address], [place] [address] Aug, [facility] [address] [id number] [address] [place] [address], [place] [address] Aug, [facility] [address] [id number] [address] [place] [address], [place] [address] Aug, [facility] [address] [id number] [address] [place] [address], [place] [address] Aug, [facility] [address] [id number] [address] [place] [address], [place] [address] Aug, [facility] [address] [id number] [address] [place] [address], [place] [address] Aug, [facility] [address] [id number] [address] [place] [address], [place] [address] Jul, [facility] [address] [id number] [address] [place] [address], [place] [address] Jul, [facility] [address] [id number] [address] [place] [address], [place] [address] Jul, [facility] [address] [id number] [address] [place] [address], [place] [address] Jul, [facility] [address] [id number] [address] [place] [address], [place] [address] 13 Jul, 2013 [facility] [address] [id number] [address] [place] [address], [place] [address] Jul, [facility] [address] [id number] [address] [place] [address], [place] [address] Jul, [facility] [address] [id number] [address] [place] [address], [place] [address] Jul, [facility] [address] [id number] [address] [place] [address], [place] [address] Jul, [facility] [address] [id number] [address] [place] [address], [place] [address] Jul, [facility] [address] [id number] [address] [place] [address], [place] [address] Jun, [facility] [address] [id number] [address] [place] [address], [place] [address] Jun, [facility] [address] [id number] [address] [place] [address], [place] [address] Jun, [facility] [address] [id number] [address] [place] [address], [place] [address] Jun, [facility] [address] [id number] [address] [place] [address], [place] [address] Jun, [facility] [address] [id number] [address] [place] [address], [place] [address] Jun, [facility] [address] [id number] [address] [place] [address], [place] [address] Jun, [facility] [address] [id number] [address] [place] [address], [place] [address] Jun, [facility] [address] [id number] [address] [place] [address], [place] [address] May, [facility] [address] [id number] [address] [place] [address], [place] [address] May, [facility] [address] [id number] [address] [place] [address], [place] [address] May, [facility] [address] [id number] [address] [place] [address], [place] [address] May, [facility] [address] [id number] [address] [place] [address], [place] [address] May, [facility] [address] [id number] [address] [place] [address], [place] [address] May, [facility] [address] [id number] [address] [place] [address], [place] [address] May, [facility] [address] [id number] [address] [place] [address], [place] [address] May, [facility] [address] [id number] [address] [place] [address], [place] [address] Apr, [facility] [address] [id number] [address] [place] [address] Apr, [facility] [address] [id number] [address] [place] [address], [place] [address] Apr, [facility] [address] [id number] [address] [place] [address] Apr, [facility] [address] [id number] [address] [place] [address] Apr, [facility] [address] [id number] [address] [place] [address] Apr, [facility] [address] [id number] [address] [place] [address], [place] [address] Mar, [facility] [address] [id number] [address] [place] [address] Mar, [facility] [address] [id number] [address] [place] [address], [place] [address] Mar, [facility] [address] [id number] [address] [place] [address], [place] [address] Mar, [facility] [address] [id number] [address] [place] [address], [place] [address] Mar, [facility] [address] [id number] [address] [place] [address], [place] [address] Mar, [facility] [address] [id number] [address] [place] [address], [place] [address] Mar, [facility] [address] [id number] [address] [place] [address], [place] [address] 30 Feb, 2012 [facility] [address] [id number] [address] [place] [address], [place] [address] 30 Feb, 2013 [facility] [address] [id number] [address] [place] [address], [place] [address] 27 Feb, 2013 [facility] [address] [id number] [address] [place] [address], [place] [address] Feb, 2012 [facility] [address] [id number] [address] [place] [address], [place] [address] Feb, [facility] [address] [id number] [address] [place] [address], [place] [address] Feb, [facility] [address] [id number] [address] [place] [address], [place] [address] Jan, [facility] [address] [id number] [address] [place] [address], [place] [address] Jan, [facility] [address] [id number] [address] [place] [address], [place] [address] Jan, [facility] [address] [id number] [address] [place] [address], [place] [address] Jan, [facility] [address] [id number] [address] [place] [address], [place] [address] Jan, [facility] [address] [id number] [address] [place] [address], [place] [address] Jan, [facility] [address] [id number] [address] [place] [address], [place] [address] Jan, [facility] [address] [id number] [address] [place] [address], [place] [address] Jan, [facility] [address] [id number] [address] [place] [address], [place] [address] Jan, [facility] [address] [id number] [address] [place] [address], [place] [address] Dec, [facility] [address] [id number] [address] [place] [address], [place] [address] Dec, [facility] [address] [id number] [address] [place] [address], [place] [address] Dec, [facility] [address] [id number] [address] [place] [address], [place] [address] Dec, [facility] [address] [id number] [address] [place] [address], [place] [address] Dec, [facility] [address] [id number] [address] [place] [address], [place] [address] Dec, [facility] [address] [id number] [address] [place] [address], [place] [address] Dec, [facility] [address] [id number] [address] [place] [address], [place] [address] Dec, [facility] [address] [id number] [address] [place] [address], [place] [address] Dec, [facility] [address] [id number] [address] [place] [address], [place] [address] Dec, [facility] [address] [id number] [address] [place] [address], [place] [address] Dec, [facility] [address] [id number] [address] [place] [address], [place] [address] Dec, [facility] [address] [id number] [address] [place] [address], [place] [address] Dec, [facility] [address] [id number] [address] [place] [address], [place] [address] Nov, [facility] [address] [id number] [address] [place] [address], [place] [address] Nov, [facility] [address] [id number] [address] [place] [address], [place] [address] Nov, [facility] [address] [id number] [address] [place] [address], [place] [address] Nov, [facility] [address] [id number] [address] [place] [address], [place] [address] October, [facility] [address] [id number] [address] [place] [address], [place] [address] October, [facility] [address] [id number] [address] [place] [address], [place] [address] October, [facility] [address] [id number] [address] [place] [address], [place] [address] October, [facility] [address] [id number] [address] [place] [address], [place] [address] October, [facility] [address] [id number] [address] [place] [address], [place] [address] October, [facility] [address] [id number] [address] [place] [address], [place] [address] Sep, [facility] [address] [id number] [address] [place] [address], [place] [address] Sep, [facility] [address] [id number] [address] [place] [address], [place] [address] Sep, [facility] [address] [id number] [address] [place] [address], [place] [address] Sep, [facility] [address] [id number] [address] [place] [address], [place] [address] Sep, [facility] [address] [id number] [address] [place] [address] 16 Sep, 2012 [facility] [address] [id number] [address] [place] [address], [place] [address] 12 Sep, 2012 [facility] [address] [id number] [address] [place] [address], [place] [address] Sep, [facility] [address] [id number] [address] [place] [address], [place] [address] Sep, [facility] [address] [id number] [address] [place] [address], [place] [address] Sep, [facility] [address] [id number] [address] [place] [address], [place] [address] Sep, [facility] [address] [id number] [address] [place] [address], [place] [address] Aug, [facility] [address] [id number] [address] [place] [address], [place] [address] 25 Aug, 2012 [facility] [address] [id number] [address] [place] [address], [place] [address] 25 Aug, 2012 [facility] [address] [id number] [address] [place] [address], [place] [address] 21 Aug, 2012 [facility] [address] [id number] [address] [place] [address], [place] [address] 19 Aug, 2012 [facility] [address] [id number] [address] [place] [address], [place] [address] 18 Aug, 2012 [facility] [address] [id number] [address] [place] [address], [place] [address] 17 Aug, 2012 [facility] [address] [id number] [address] [place] [address], [place] [address] 15 Aug, 2012 [facility] [address] [id number] [address] [place] [address], [place] [address] 15 Aug, 2012 [facility] [address] [id number] [address] [place] [address], [place] [address] Aug, [facility] [address] [id number] [address] [place] [address], [place] [address] Aug, [facility] [address] [id number] [address] [place] [address], [place] [address] Aug, [facility] [address] [id number] [address] [place] [address], [place] [address] Jul, [facility] [address] [id number] [address] [place] [address], [place] [address] Jul, [facility] [address] [id number] [address] [place] [address], [place] [address] Jul, [facility] [address] [id number] [address] [place] [address], [place] [address] Jul, [facility] [address] [id number] [address] [place] [address], [place] [id number] Jul, [facility] [address] [id number] [address] [place] [address], [place] [id number] Jul, [facility] [address] [id number] [address] [place] [address], [place] [address] Jul, [facility] [address] [id number] [address] [place] [address], [place] [address] Jul, [facility] [address] [id number] [address] [place] [address], [place] [address] Jul, [facility] [address] [id number] [address] [place] [address], [place] [address] Jul, [facility] [address] [id number] [address] [place] [address], [place] [address] May, [facility] [address] [id number] [place] [id number] May, [facility] [address] [id number] [address] [place] [address], [place] [address] May, [facility] [address] [id number] [address] [place] [id number] May, [facility] [address] [facility] [id number] [address] [place] [id number] May, [facility] [address] [facility] [id number] [address] [place] [id number] Apr, [facility] [address] [id number] [place] [id number] Apr, [facility] [address] [facility] [id number] [address] [place] [id number] Apr, [facility] [address] [facility] [id number] [address] [place] [id number] Mar, [facility] [address] [id number] [place] [id number] Mar, [facility] [address] [facility] [id number] [address] [place] [id number] Mar, [facility] [address] [id number] [place] [id number] Feb, [facility] [address] [facility] [id number] [address] [place] [id number] Feb, [facility] [address] [facility] [id number] [address] [place] [phone] Feb, [facility] [address] [id number] [place] [id number] Feb, [facility] [address] [id number] [place] [id number] Feb, [facility] [address] [id number] [place] [id number] Jan, [facility] [address] [id number] [address] [place] [address], [place] [address] Jan, [facility] [address] [id number] [place] [id number] Jan, [facility] [address] [id number] [place] [id number] Jan, [facility] [address] [id number] [place] [id number] Jan, [facility] [address] [facility] [id number] [address] [place] [address], [place] [address] Jan, [facility] [address] [facility] [id number] [address] [place] [address], [place] [address] Jan, [facility] [address] [facility] [id number] [address] [place] [address], [place] [address] Aug, [facility] [address] [id number] [place] [id number] Aug, [facility] [address] [facility] [id number] [address] [place] [address], [place] [address] Jul, [facility] [address] [facility] [id number] [address] [place] [address], [place] [address] Jul, [facility] [address] [facility] [id number] [address] [place] [address], [place] [id number] Jul, [facility] [address] [id number] [place] [id number] Jul, [facility] [address] [facility] [id number] [address] [place] [address], [place] [address] Jul, [facility] [address] [id number] [place] [id number] Jul, [facility] [address] [facility] [id number] [address] [place] [address], [place] [address] Jul, [facility] [address] [id number] [place] [id number] Jul, [facility] [address] [id number] [place] [id number] Jul, [facility] [address] [id number] [place] [id number] Jul, [facility] [address] [facility] [id number] [address] [place] [address], [place] [id number] May, [facility] [address] [id number] [address] [place] [id number] May, [facility] [address] [id number] [address] [place] [id number] May, [facility] [address] [id number] [address] [place] [id number] Apr, [facility] [address] [id number] [address] [place] [id number] Jan, [facility] [address] [id number] [address] [place] [id number] Jan, [facility] [address] [id number] [address] [place] [id number] Dec, [facility] [address] [id number] [address] [place] [id number] Dec, [facility] [address] [id number] [address] [place] [id number] May, [facility] [address] [id number] [address] [place] [id number] Mar, [facility] [address] [id number] [address] [place] [id number] Mar, [facility] [address] [facility] [id number] [address] [place] [phone] Jan, IMMUNIZATIONS No Known Immunizations SOCIAL HISTORY Never Assessed REASON FOR VISIT PLAN OF CARE VITAL SIGNS MEDICATIONS Unknown Medications RESULTS No Results PROCEDURES Procedure Date Ordered Result Body Site PROTHROMBIN TIME Jul 21, 2014 ASSAY OF UREA NITROGEN Jul 21, 2014 ASSAY OF CREATININE Jul 21, 2014 VENIPUNCT, ROUTINE* Jul 21, 2014 INSTRUCTIONS MEDICATIONS ADMINISTERED No Known Medications [...]
--- OUTSIDE RECORDS SUMMARY | 2020-01-28 12:53 | XMS REPORT ---
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 Active 190222854 Problem History of venous thromboembolism V12.51 Active 356151983 Problem Cellulitis of unspecified part of limb L03.119 Active 398819227 Problem Gastroesophageal reflux disease without esophagitis K21.9 Active 992515548 Problem History of pulmonary embolism Z86.711 Active 668691576 Problem Pseudotumor cerebri G93.2 Active 15156882 Problem History of DVT (deep vein thrombosis) Z86.718 Active 182305636 ALLERGIES No Information ENCOUNTERS Encounter Location Date Diagnosis [place] [id number] [facility] [id number] [address] [place] [address] Apr, assisted (current) use of 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 Z79.01 [facility] [address] [facility] [id number] [address] [place] [address] Apr, assisted 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.01 [facility] [address] [facility] [id number] [address] [place] [address] Apr, Cellulitis of unspecified pa rt of limb L03.119 ; Allergic contact dermatitis due to adhesives L23.1 and Chronic pain syndrome G89.4 [facility] [address] [facility] [id number] [address] [place] [address] Apr, [place] [address] [place] [id number] [address] [place] [address] Apr, land 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.01 ; Cellulitis of unspecified part of limb L03.119 ; Chronic pain syndrome G89.4 and Anxiety F41.9 [facility] [address] [place] [id number] [address] [place] [address] 16 Apr, 2015 [facility] [address] [place] [id number] [place] [address] Apr, [place] [address] [place] [id number] [place] [address] Mar, [place] [address] [address] Mar, [place] [address] [address] Mar, Sore throat J02.9 ; Gastroes ophageal reflux disease without esophagitis K21.9 ; Pseudotumor cerebri G93.2 ; Chronic pain syndrome G89.4 ; Choriocarcinoma C58 ; History of pulmonary embolism Z86.711 ; History of DVT (deep vein thrombosis) Z86.718 ; Anxiety F41.9 and Tachycardia R00.0 [place] [address] [address] Feb, Anxiety 300.00 and Chronic p ain 338.29 [place] [address] [place] [id number] [address] [place] [address] Feb, [place] [address] [place] [id number] [address] [place] [address] Feb, [place] [address] [address] Jan, land surveyor current use of ant icoagulant therapy V58.61 and Dysuria 788.1 [place] [address] [place] [id number] [place] [address] Jan, Dysuria 788.1 [facility] [address] [place] [id number] [address] [place] [address] Jan, Anxiety 300.00 and Chronic p ain 338.29 [facility] [address] [place] [id number] [place] [address] Jan, [facility] [address] [address] Jan, [facility] [address] [address] Jan, [place] [address] [address] Dec, Weakness 780.79 [place] [address] [address] Dec, assisted current use of ant icoagulant therapy V58.61 [place] [address] [address] Dec, Palpitations 785.1 ; Tremor 781.0 ; Weakness 780.79 ; assisted current use of anticoagulant therapy V58.61 and Yeast vaginitis 112.1 [place] [address] [place] [id number] [address] [place] [address] Dec, [place] [address] [address] Dec, Cervicalgia 723.1 ; Tachycar yoseph 785.0 ; Pseudotumor cerebri 348.2 and History of venous thromboembolism V12.51 [place] [address] [address] Nov, [place] [address] [address] Nov, [place] [address] [address] Nov, Tachycardia 785.0 ; Pseudotu mor cerebri 348.2 ; Anxiety 300.00 and History of venous thromboembolism V12.51 [facility] [address] [id number] [address] [place] [address] Nov, [facility] [address] [id number] [address] [place] [address] 18 Nov, 2014 [facility] [address] [id number] [address] [place] [address] Nov, [facility] [address] [id number] [address] [place] [address] Nov, [facility] [address] [facility] [id number] [address] [place] [address] Nov, [facility] [address] [facility] [id number] [address] [place] [address] Nov, [facility] [address] [facility] [id number] [address] [place] [address] Nov, [facility] [address] [facility] [id number] [address] [place] [address] October, [facility] [address] [facility] [id number] [address] [place] [address] October, [facility] [address] [place] [id number] [address] [place] [address] October, Pain in thoracic spine 724.1 and Tachycardia 785.0 [facility] [address] [id number] [address] [place] [address] October, [facility] [address] [id number] [address] [place] [address] October, [facility] [address] [facility] [id number] [address] [place] [address] 14 Sep, 2014 [facility] [address] [facility] [id number] [address] [place] [address] Sep, [facility] [address] [id number] [facility] [place] [address] Aug, [facility] [address] [id number] [address] [place] [address], [place] [address] Aug, [facility] [address] [id number] [address] [place] [address], [place] [address] Aug, [facility] [address] [id number] [address] [place] [address], [place] [address] Aug, [facility] [address] [id number] [address] [place] [address], [place] [address] Aug, [facility] [address] [id number] [address] [place] [address], [place] [address] Aug, [facility] [address] [id number] [address] [place] [address], [place] [address] Aug, [facility] [address] [id number] [address] [place] [address], [place] [address] Aug, [facility] [address] [id number] [address] [place] [address], [place] [address] Aug, [facility] [address] [id number] [address] [place] [address], [place] [address] Aug, [facility] [address] [id number] [address] [place] [address], [place] [address] Aug, [facility] [address] [id number] [address] [place] [address], [place] [address] Aug, 2014 [facility] [address] [id number] [address] [place] [address], [place] [address] Jul, [facility] [address] [id number] [address] [place] [address], [place] [address] Jul, [facility] [address] [id number] [address] [place] [address], [place] [address] Jul, [facility] [address] [id number] [address] [place] [address], [place] [address] Jul, [facility] [address] [id number] [address] [place] [address], [place] [address] 23 Jul, 2014 [facility] [address] [id number] [address] [place] [address], [place] [address] 23 Jul, 2014 [facility] [address] [id number] [address] [place] [address], [place] [address] 23 Jul, 2014 [facility] [address] [id number] [address] [place] [address], [place] [address] 23 Jul, 2014 [facility] [address] [id number] [address] [place] [address], [place] [address] 20 Jul, 2014 [facility] [address] [id number] [address] [place] [address], [place] [address] 20 Jul, 2014 [facility] [address] [id number] [address] [place] [address], [place] [address] 19 Jul, 2014 [facility] [address] [id number] [address] [place] [address], [place] [address] 19 Jul, 2014 [facility] [address] [id number] [address] [place] [address], [place] [address] 17 Jul, 2014 [facility] [address] [id number] [address] [place] [address], [place] [address] 17 Jul, 2014 [facility] [address] [id number] [address] [place] [address], [place] [address] 16 Jul, 2014 [facility] [address] [id number] [address] [place] [address], [place] [address] 16 Jul, 2014 [facility] [address] [id number] [address] [place] [address], [place] [address] 16 Jul, 2014 [facility] [address] [id number] [address] [place] [address] 16 Jul, 2014 [facility] [address] [id number] [address] [place] [address] 13 Jul, 2014 [facility] [address] [id number] [address] [place] [address], [place] [address] Jul, [facility] [address] [id number] [address] [place] [address], [place] [address] Jul, [facility] [address] [id number] [address] [place] [address], [place] [address] Jul, 2014 [facility] [address] [id number] [address] [place] [address], [place] [address] Jul, 2014 [facility] [address] [id number] [address] [place] [address], [place] [address] Jul, [facility] [address] [id number] [address] [place] [address], [place] [address] Jul, [facility] [address] [id number] [address] [place] [address], [place] [address] Jul, [facility] [address] [id number] [address] [place] [address], [place] [address] Jul, [facility] [address] [id number] [address] [place] [address], [place] [address] Jul, [facility] [address] [id number] [address] [place] [address], [place] [address] Jul, [facility] [address] [id number] [address] [place] [address], [place] [address] Jul, [facility] [address] [id number] [address] [place] [address], [place] [address] Jun, [facility] [address] [id number] [address] [place] [address], [place] [address] Jun, [facility] [address] [id number] [address] [place] [address], [place] [address] Jun, [facility] [address] [id number] [address] [place] [address], [place] [address] Jun, [facility] [address] [id number] [address] [place] [address], [place] [address] Jun, [facility] [address] [id number] [address] [place] [address], [place] [address] Jun, [facility] [address] [id number] [address] [place] [address], [place] [address] Jun, [facility] [address] [id number] [address] [place] [address], [place] [address] Jun, [facility] [address] [id number] [address] [place] [address], [place] [address] Jun, [facility] [address] [id number] [address] [place] [address], [place] [address] Jun, [facility] [address] [id number] [address] [place] [address], [place] [address] Jun, [facility] [address] [id number] [address] [place] [address], [place] [address] Jun, [facility] [address] [id number] [address] [place] [address], [place] [address] Jun, [facility] [address] [id number] [address] [place] [address], [place] [address] Jun, [facility] [address] [id number] [address] [place] [address], [place] [address] Jun, [facility] [address] [id number] [address] [place] [address], [place] [address] Jun, [facility] [address] [id number] [address] [place] [address], [place] [address] Jun, [facility] [address] [id number] [address] [place] [address], [place] [address] Jun, [facility] [address] [id number] [address] [place] [address], [place] [address] Jun, [facility] [address] [id number] [address] [place] [address], [place] [address] Jun, [facility] [address] [id number] [address] [place] [address], [place] [address] May, [facility] [address] [id number] [address] [place] [address], [place] [address] May, [facility] [address] [id number] [address] [place] [address], [place] [address] May, [facility] [address] [id number] [address] [place] [address], [place] [address] May, [facility] [address] [id number] [address] [place] [address], [place] [address] May, [facility] [address] [id number] [address] [place] [address], [place] [address] May, [facility] [address] [id number] [address] [place] [address], [place] [address] May, [facility] [address] [id number] [address] [place] [address], [place] [address] May, [facility] [address] [id number] [address] [place] [address], [place] [address] May, [facility] [address] [id number] [address] [place] [address], [place] [address] May, [facility] [address] [id number] [address] [place] [address], [place] [address] May, [facility] [address] [id number] [address] [place] [address], [place] [address] 18 May, 2014 [facility] [address] [id number] [address] [place] [address], [place] [address] 18 May, 2014 [facility] [address] [id number] [address] [place] [address], [place] [address] 17 May, 2014 [facility] [address] [id number] [address] [place] [address], [place] [address] 16 May, 2014 [facility] [address] [id number] [address] [place] [address], [place] [address] 16 May, 2014 [facility] [address] [id number] [address] [place] [address], [place] [address] 15 May, 2014 [facility] [address] [id number] [address] [place] [address], [place] [address] 15 May, 2014 [facility] [address] [id number] [address] [place] [address], [place] [address] May, [facility] [address] [id number] [address] [place] [address], [place] [address] May, [facility] [address] [id number] [address] [place] [address], [place] [address] May, [facility] [address] [id number] [address] [place] [address], [place] [address] May, [facility] [address] [id number] [address] [place] [address], [place] [address] May, [facility] [address] [id number] [address] [place] [address], [place] [address] May, [facility] [address] [id number] [address] [place] [address], [place] [address] May, [facility] [address] [id number] [address] [place] [address], [place] [address] May, [facility] [address] [id number] [address] [place] [address], [place] [address] May, [facility] [address] [id number] [address] [place] [address], [place] [address] May, [facility] [address] [id number] [address] [place] [address], [place] [address] May, [facility] [address] [id number] [address] [place] [address], [place] [address] May, [facility] [address] [id number] [address] [place] [address], [place] [address] May, [facility] [address] [id number] [address] [place] [address], [place] [address] May, [facility] [address] [id number] [address] [place] [address], [place] [address] May, [facility] [address] [id number] [address] [place] [address], [place] [address] May, [facility] [address] [id number] [address] [place] [address], [place] [address] Apr, [facility] [address] [id number] [address] [place] [address], [place] [address] Apr, [facility] [address] [id number] [address] [place] [address], [place] [address] Apr, [facility] [address] [id number] [address] [place] [address], [place] [address] Apr, [facility] [address] [id number] [address] [place] [address], [place] [address] Apr, [facility] [address] [id number] [address] [place] [address], [place] [address] Apr, [facility] [address] [id number] [address] [place] [address], [place] [address] Apr, [facility] [address] [id number] [address] [place] [address], [place] [address] Apr, [facility] [address] [id number] [address] [place] [address], [place] [address] Apr, [facility] [address] [id number] [address] [place] [address], [place] [address] Apr, [facility] [address] [id number] [address] [place] [address], [place] [address] Mar, [facility] [address] [id number] [address] [place] [address], [place] [address] Mar, [facility] [address] [id number] [address] [place], [place] [address] [address] Mar, [facility] [address] [id number] [address] [place] [address], [place] [address] 31 Mar, 2013 [facility] [address] [id number] [address] [place] [address], [place] [address] Mar, [facility] [address] [id number] [address] [place] [address], [place] [address] 30 Mar, 2014 [facility] [address] [id number] [address] [place] [address], [place] [address] Mar, [facility] [address] [id number] [address] [place] [address], [place] [address] Mar, [facility] [address] [id number] [address] [place] [address], [place] [address] Mar, [facility] [address] [id number] [address] [place] [address], [place] [address] Mar, [facility] [address] [id number] [address] [place] [id number] Mar, [facility] [address] [id number] [address] [place] [id number] Mar, [facility] [address] [id number] [address] [place] [id number] Mar, [facility] [address] [id number] [address] [place] [id number] Mar, 2013 [facility] [address] [id number] [address] [place] [id number] Mar, 2013 [facility] [address] [id number] [address] [place] [id number] Mar, [facility] [address] [id number] [address] [place] [id number] Mar, [facility] [address] [id number] [address] [place] [id number] Mar, 2013 [facility] [address] [id number] [address] [place] [address], [place] [address] 02 Mar, 2013 [facility] [address] [id number] [address] [place] [address], [place] [address] 02 Mar, 2013 [facility] [address] [id number] [address] [place] [address], [place] [address] 05 Sep, 2013 [facility] [address] [id number] [address] [place] [address], [place] [address] 05 Sep, 2013 [facility] [address] [id number] [address] [place] [address], [place] [address] 04 Sep, 2013 [facility] [address] [id number] [address] [place] [address], [place] [address] 04 Sep, 2013 [facility] [address] [id number] [address] [place] [address], [place] [address] 03 Feb, 2013 [facility] [address] [id number] [address] [place] [address], [place] [address] 03 Feb, 2013 [facility] [address] [id number] [address] [place] [address], [place] [address] 02 Feb, 2013 [facility] [address] [id number] [address] [place] [address], [place] [address] Feb, 2013 [facility] [address] [id number] [address] [place] [address], [place] [address] 02 Feb, 2013 [facility] [address] [id number] [address] [place] [address], [place] [address] Feb, 2013 [facility] [address] [id number] [address] [place] [address], [place] [address] Jan, [facility] [address] [id number] [address] [place] [address], [place] [address] Jan, [facility] [address] [id number] [address] [place] [address], [place] [address] Jan, [facility] [address] [id number] [address] [place] [address], [place] [address] Jan, [facility] [address] [id number] [facility] [place] [address] Jan, [facility] [address] [id number] [address] [place] [address], [place] [address] Jan, [facility] [address] [id number] [address] [place] [address], [place] [address] Jan, [facility] [address] [id number] [address] [place] [address], [place] [address] Jan, [facility] [address] [id number] [address] [place] [address], [place] [address] Jan, [facility] [address] [id number] [address] [place] [address], [place] [address] Jan, [facility] [address] [id number] [address] [place] [address], [place] [address] Jan, [facility] [address] [id number] [address] [place] [address], [place] [address] Jan, [facility] [address] [id number] [address] [place] [address], [place] [address] Dec, [facility] [address] [id number] [address] [place] [address], [place] [address] Dec, [facility] [address] [id number] [address] [place] [address], [place] [address] Dec, [facility] [address] [address] [id number] [address] [place] [address], [place] [address] Dec, [facility] [address] [id number] [address] [place] [address], [place] [address] Dec, [facility] [address] [id number] [address] [place] [address], [place] [address] Dec, [facility] [address] [id number] [address] [place] [address], [place] [address] Dec, [facility] [address] [id number] [address] [place] [address], [place] [address] Dec, [facility] [address] [id number] [facility] [place] [address] Dec, [facility] [address] [id number] [address] [place] [address], [place] [address] Dec, [facility] [address] [id number] [address] [place] [address], [place] [address] Dec, [facility] [address] [id number] [address] [place] [address], [place] [address] Dec, [facility] [address] [id number] [address] [place] [address], [place] [address] Nov, [facility] [address] [id number] [address] [place] [address], [place] [address] Nov, [facility] [address] [id number] [address] [place] [address], [place] [address] Nov, [facility] [address] [id number] [address] [place] [address], [place] [address] Nov, [facility] [address] [id number] [address] [place] [address], [place] [address] Nov, [facility] [address] [id number] [address] [place] [address], [place] [address] Nov, [facility] [address] [id number] [address] [place] [address], [place] [address] Nov, [facility] [address] [id number] [address] [place] [address], [place] [address] Nov, [facility] [address] [id number] [address] [place] [address], [place] [address] Nov, [facility] [address] [id number] [address] [place] [address], [place] [address] Nov, [facility] [address] [id number] [address] [place] [address], [place] [address] Nov, [facility] [address] [id number] [facility] [place] [address] Nov, [facility] [address] [id number] [address] [place] [address], [place] [address] Nov, [facility] [address] [id number] [address] [place] [address], [place] [address] Nov, [facility] [address] [id number] [address] [place] [address], [place] [address] October, [facility] [address] [id number] [address] [place] [address], [place] [address] October, [facility] [address] [id number] [address] [place] [address], [place] [address] October, [facility] [address] [id number] [address] [place] [address], [place] [address] October, [facility] [address] [id number] [address] [place] [address], [place] [address] October, [facility] [address] [id number] [address] [place] [address], [place] [address] October, [facility] [address] [id number] [address] [place] [address], [place] [address] October, [facility] [address] [id number] [address] [place] [address], [place] [address] October, [facility] [address] [id number] [address] [place] [address], [place] [address] October, [facility] [address] [id number] [address] [place] [address], [place] [address] October, [facility] [address] [id number] [address] [place] [address], [place] [address] October, [facility] [address] [id number] [address] [place] [address], [place] [address] October, [facility] [address] [id number] [address] [place] [address], [place] [address] Sep, [facility] [address] [id number] [facility] [place] [address] Sep, [facility] [address] [id number] [address] [place] [address], [place] [address] Sep, [facility] [address] [id number] [facility] [place] [address] Sep, [facility] [address] [id number] [address] [place] [address], [place] [address] Sep, [facility] [address] [id number] [address] [place] [address], [place] [address] Sep, [facility] [address] [id number] [address] [place] [address], [place] [address] Aug, [facility] [address] [id number] [address] [place] [address], [place] [address] Aug, [facility] [address] [id number] [address] [place] [address], [place] [address] Aug, [facility] [address] [id number] [address] [place] [address], [place] [address] Aug, [facility] [address] [id number] [address] [place] [address], [place] [address] Aug, [facility] [address] [id number] [address] [place] [address], [place] [address] Aug, [facility] [address] [id number] [address] [place] [address], [place] [address] Jul, [facility] [address] [id number] [address] [place] [address], [place] [address] Jul, [facility] [address] [id number] [address] [place] [address], [place] [address] Jul, [facility] [address] [id number] [address] [place] [address], [place] [address] Jul, [facility] [address] [id number] [address] [place] [address], [place] [address] 13 Jul, 2013 [facility] [address] [id number] [address] [place] [address], [place] [address] Jul, [facility] [address] [id number] [address] [place] [address], [place] [address] Jul, [facility] [address] [id number] [address] [place] [address], [place] [address] Jul, [facility] [address] [id number] [address] [place] [address], [place] [address] Jul, [facility] [address] [id number] [address] [place] [address], [place] [address] Jul, [facility] [address] [id number] [address] [place] [address], [place] [address] Jun, [facility] [address] [id number] [address] [place] [address], [place] [address] Jun, [facility] [address] [id number] [address] [place] [address], [place] [address] Jun, [facility] [address] [id number] [address] [place] [address], [place] [address] Jun, [facility] [address] [id number] [address] [place] [address], [place] [address] Jun, [facility] [address] [id number] [address] [place] [address], [place] [address] Jun, [facility] [address] [id number] [address] [place] [address], [place] [address] Jun, [facility] [address] [id number] [address] [place] [address], [place] [address] Jun, [facility] [address] [id number] [address] [place] [address], [place] [address] May, [facility] [address] [id number] [address] [place] [address], [place] [address] May, [facility] [address] [id number] [address] [place] [address], [place] [address] May, [facility] [address] [id number] [address] [place] [address], [place] [address] May, [facility] [address] [id number] [address] [place] [address], [place] [address] May, [facility] [address] [id number] [address] [place] [address], [place] [address] May, [facility] [address] [id number] [address] [place] [address], [place] [address] May, [facility] [address] [id number] [address] [place] [address], [place] [address] May, [facility] [address] [id number] [address] [place] [address], [place] [address] Apr, [facility] [address] [id number] [address] [place] [address] Apr, [facility] [address] [id number] [address] [place] [address], [place] [address] Apr, [facility] [address] [id number] [address] [place] [address] Apr, [facility] [address] [id number] [address] [place] [address] Apr, [facility] [address] [id number] [address] [place] [address] Apr, [facility] [address] [id number] [address] [place] [address], [place] [address] Mar, [facility] [address] [id number] [address] [place] [address] Mar, [facility] [address] [id number] [address] [place] [address], [place] [address] Mar, [facility] [address] [id number] [address] [place] [address], [place] [address] Mar, [facility] [address] [id number] [address] [place] [address], [place] [address] Mar, [facility] [address] [id number] [address] [place] [address], [place] [address] Mar, [facility] [address] [id number] [address] [place] [address], [place] [address] Mar, [facility] [address] [id number] [address] [place] [address], [place] [address] 30 Feb, 2012 [facility] [address] [id number] [address] [place] [address], [place] [address] 30 Feb, 2013 [facility] [address] [id number] [address] [place] [address], [place] [address] 27 Feb, 2013 [facility] [address] [id number] [address] [place] [address], [place] [address] Feb, 2012 [facility] [address] [id number] [address] [place] [address], [place] [address] Feb, [facility] [address] [id number] [address] [place] [address], [place] [address] Feb, [facility] [address] [id number] [address] [place] [address], [place] [address] Jan, [facility] [address] [id number] [address] [place] [address], [place] [address] Jan, [facility] [address] [id number] [address] [place] [address], [place] [address] Jan, [facility] [address] [id number] [address] [place] [address], [place] [address] Jan, [facility] [address] [id number] [address] [place] [address], [place] [address] Jan, [facility] [address] [id number] [address] [place] [address], [place] [address] Jan, [facility] [address] [id number] [address] [place] [address], [place] [address] Jan, [facility] [address] [id number] [address] [place] [address], [place] [address] Jan, [facility] [address] [id number] [address] [place] [address], [place] [address] Jan, [facility] [address] [id number] [address] [place] [address], [place] [address] Dec, [facility] [address] [id number] [address] [place] [address], [place] [address] Dec, [facility] [address] [id number] [address] [place] [address], [place] [address] Dec, [facility] [address] [id number] [address] [place] [address], [place] [address] Dec, [facility] [address] [id number] [address] [place] [address], [place] [address] Dec, [facility] [address] [id number] [address] [place] [address], [place] [address] Dec, [facility] [address] [id number] [address] [place] [address], [place] [address] Dec, [facility] [address] [id number] [address] [place] [address], [place] [address] Dec, [facility] [address] [id number] [address] [place] [address], [place] [address] Dec, [facility] [address] [id number] [address] [place] [address], [place] [address] Dec, [facility] [address] [id number] [address] [place] [address], [place] [address] Dec, [facility] [address] [id number] [address] [place] [address], [place] [address] Dec, [facility] [address] [id number] [address] [place] [address], [place] [address] Dec, [facility] [address] [id number] [address] [place] [address], [place] [address] Nov, [facility] [address] [id number] [address] [place] [address], [place] [address] Nov, [facility] [address] [id number] [address] [place] [address], [place] [address] Nov, [facility] [address] [id number] [address] [place] [address], [place] [address] Nov, [facility] [address] [id number] [address] [place] [address], [place] [address] October, [facility] [address] [id number] [address] [place] [address], [place] [address] October, [facility] [address] [id number] [address] [place] [address], [place] [address] October, [facility] [address] [id number] [address] [place] [address], [place] [address] October, [facility] [address] [id number] [address] [place] [address], [place] [address] October, [facility] [address] [id number] [address] [place] [address], [place] [address] October, [facility] [address] [id number] [address] [place] [address], [place] [address] Sep, [facility] [address] [id number] [address] [place] [address], [place] [address] Sep, [facility] [address] [id number] [address] [place] [address], [place] [address] Sep, [facility] [address] [id number] [address] [place] [address], [place] [address] Sep, [facility] [address] [id number] [address] [place] [address], [place] [address] Sep, [facility] [address] [id number] [facility] [place] [address] 16 Sep, 2012 [facility] [address] [id number] [address] [place] [address], [place] [address] 12 Sep, 2012 [facility] [address] [id number] [address] [place] [address], [place] [address] Sep, [facility] [address] [id number] [address] [place] [address], [place] [address] Sep, [facility] [address] [id number] [address] [place] [address], [place] [address] Sep, [facility] [address] [id number] [address] [place] [address], [place] [address] Sep, [facility] [address] [id number] [address] [place] [address], [place] [address] Aug, [facility] [address] [id number] [address] [place] [address], [place] [address] 25 Aug, 2012 [facility] [address] [id number] [address] [place] [address], [place] [address] 25 Aug, 2012 [facility] [address] [id number] [address] [place] [address], [place] [address] 21 Aug, 2012 [facility] [address] [id number] [address] [place] [address], [place] [address] 19 Aug, 2012 [facility] [address] [id number] [address] [place] [address], [place] [address] 18 Aug, 2012 [facility] [address] [id number] [address] [place] [address], [place] [address] 17 Aug, 2012 [facility] [address] [id number] [address] [place] [address], [place] [address] 15 Aug, 2012 [facility] [address] [id number] [address] [place] [address], [place] [address] 15 Aug, 2012 [facility] [address] [id number] [address] [place] [address], [place] [address] Aug, [facility] [address] [id number] [address] [place] [address], [place] [address] Aug, [facility] [address] [id number] [address] [place] [address], [place] [address] Aug, [facility] [address] [id number] [address] [place] [address], [place] [address] Jul, [facility] [address] [id number] [address] [place] [address], [place] [address] Jul, [facility] [address] [id number] [address] [place] [address], [place] [address] Jul, [facility] [address] [id number] [address] [place] [address], [place] [address] Jul, [facility] [address] [id number] [address] [place] [address], [place] [address] Jul, [facility] [address] [id number] [address] [place] [address], [place] [address] Jul, [facility] [address] [id number] [address] [place] [address], [place] [address] Jul, [facility] [address] [id number] [address] [place] [address], [place] [address] Jul, [facility] [address] [id number] [address] [place] [address], [place] [address] Jul, [facility] [address] [id number] [address] [place] [address], [place] [address] Jul, [facility] [address] [id number] [address] [place] [address], [place] [address] May, [facility] [address] [id number] [place] [id number] May, [facility] [address] [id number] [address] [place] [address], [place] [address] May, [facility] [address] [id number] [address] [place] [id number] May, [facility] [address] [facility] [id number] [address] [place] [id number] May, [facility] [address] [facility] [id number] [address] [place] [address] Apr, [facility] [address] [id number] [place] [id number] Apr, [facility] [address] [facility] [id number] [address] [place] [address] Apr, [facility] [address] [facility] [id number] [address] [place] [address] Mar, [facility] [address] [id number] [place] [id number] Mar, [facility] [address] [facility] [id number] [address] [place] [id number] Mar, [facility] [address] [id number] [place] [id number] Feb, [facility] [address] [facility] [id number] [address] [place] [id number] Feb, [facility] [address] [facility] [id number] [address] [place] [address] Feb, [facility] [address] [id number] [place] [id number] Feb, [facility] [address] [id number] [place] [id number] Feb, [facility] [address] [id number] [place] [id number] Jan, [facility] [address] [id number] [address] [place] [address], [place] [address] Jan, [facility] [address] [id number] [place] [id number] Jan, [facility] [address] [id number] [place] [id number] Jan, [facility] [address] [id number] [place] [id number] Jan, [facility] [address] [facility] [id number] [address] [place] [address], [place] [address] Jan, [facility] [address] [facility] [id number] [address] [place] [address], [place] [address] Jan, [facility] [address] [facility] [id number] [address] [place] [address], [place] [address] Aug, [facility] [address] [id number] [place] [id number] Aug, [facility] [address] [facility] [id number] [address] [place] [address], [place] [address] Jul, [facility] [address] [facility] [id number] [address] [place] [address], [place] [address] Jul, [facility] [address] [facility] [id number] [address] [place] [address], [place] [address] Jul, [facility] [address] [id number] [place] [id number] Jul, [facility] [address] [facility] [id number] [address] [place] [address], [place] [address] Jul, [facility] [address] [id number] [place] [id number] Jul, [facility] [address] [facility] [id number] [address] [place] [address], [place] [address] Jul, [facility] [address] [id number] [place] [id number] Jul, [facility] [address] [id number] [place] [id number] Jul, [facility] [address] [id number] [place] [id number] Jul, [facility] [address] [facility] [id number] [address] [place] [address], [place] [address] May, [facility] [address] [id number] [address] [place] [id number] May, [facility] [address] [id number] [address] [place] [id number] May, [facility] [address] [id number] [address] [place] [id number] Apr, [facility] [address] [id number] [address] [place] [id number] Jan, [facility] [address] [id number] [address] [place] [id number] Jan, [facility] [address] [id number] [address] [place] [id number] Dec, [facility] [address] [id number] [address] [place] [id number] Dec, [facility] [address] [id number] [address] [place] [id number] May, [facility] [address] [id number] [address] [place] [id number] Mar, [facility] [address] [id number] [address] [place] [id number] Mar, [facility] [address] [id number] [address] [place] [id number] Jan, IMMUNIZATIONS No Known Immunizations SOCIAL HISTORY [...]
--- OUTSIDE RECORDS SUMMARY | 2020-01-28 12:54 | XMS REPORT ---
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 [id number] [address] [place] [address] Apr, [facility] (current) use of 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 Z79.01 [facility] [address] [facility] [id number] [address] [place] [address] Apr, [facility] 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.01 [facility] [address] [facility] [id number] [address] [place] [address] Apr, Cellulitis of unspecified pa rt of limb L03.119 ; Allergic contact dermatitis due to adhesives L23.1 and Chronic pain syndrome G89.4 [facility] [address] 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.01 ; Cellulitis of unspecified part of limb L03.119 ; Chronic pain syndrome G89.4 and Anxiety F41.9 [facility] [address] [place] [id number] [address] [place] [address] 16 Apr, 2015 [facility] [address] [place] [id number] [place] [address] Apr, [place] [address] [place] [id number] [place] [address] Mar, [place] [address] [address] Mar, [place] [address] [address] Mar, Sore throat J02.9 ; Gastroes ophageal reflux disease without esophagitis K21.9 ; Pseudotumor cerebri G93.2 ; Chronic pain syndrome G89.4 ; Choriocarcinoma C58 ; History of pulmonary embolism Z86.711 ; History of DVT (deep vein thrombosis) Z86.718 ; Anxiety F41.9 and Tachycardia R00.0 [place] [address] [address] Feb, Anxiety 300.00 and Chronic p ain 338.29 [place] [address] [place] [id number] [address] [place] [address] Feb, [place] [address] [place] [id number] [address] [place] [address] Feb, [place] [address] [address] Jan, 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 manager 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 use of ant icoagulant therapy V58.61 and Dysuria 788.1 [place] [address] [place] [id number] [place] [address] Jan, Dysuria 788.1 [facility] [address] [place] [id number] [address] [place] [address] Jan, Anxiety 300.00 and Chronic p ain 338.29 [facility] [address] [place] [id number] [place] [address] Jan, [facility] [address] [address] Jan, [facility] [address] [address] Jan, [place] [address] [address] Dec, Weakness 780.79 [place] [address] [address] Dec, [facility] current use of ant icoagulant therapy V58.61 [place] [address] [address] Dec, Palpitations 785.1 ; Tremor 781.0 ; Weakness 780.79 ; [facility] current use of anticoagulant therapy V58.61 and Yeast vaginitis 112.1 [place] [address] [place] [id number] [address] [place] [address] Dec, [place] [address] [address] Dec, Cervicalgia 723.1 ; Tachycar yoseph 785.0 ; Pseudotumor cerebri 348.2 and History of venous thromboembolism V12.51 [place] [address] [address] Nov, [place] [address] [address] Nov, [place] [address] [address] Nov, Tachycardia 785.0 ; Pseudotu mor cerebri 348.2 ; Anxiety 300.00 and History of venous thromboembolism V12.51 [facility] [address] [id number] [address] [place] [address] Nov, [facility] [address] [id number] [address] [place] [address] 18 Nov, 2014 [facility] [address] [id number] [address] [place] [address] Nov, [facility] [address] [id number] [address] [place] [address] Nov, [facility] [address] [facility] [id number] [address] [place] [address] Nov, [facility] [address] [facility] [id number] [address] [place] [address] Nov, [facility] [address] [facility] [id number] [address] [place] [address] Nov, [facility] [address] [id number] [address] [place] [address] October, [facility] [address] [id number] [address] [place] [address] October, [facility] [address] [place] [id number] [address] [place] [address] October, Pain in thoracic spine 724.1 and Tachycardia 785.0 [facility] [address] [id number] [address] [place] [address] October, [facility] [address] [id number] [address] [place] [address] October, [facility] [address] [id number] [address] [place] [address] 14 Sep, 2014 [facility] [address] [facility] [id number] [address] [place] [address] Sep, [facility] [address] [id number] [facility] [place] [address] Aug, [facility] [address] [id number] [address] [place] [address], [place] [address] Aug, [facility] [address] [id number] [address] [place] [address], [place] [address] Aug, [facility] [address] [id number] [address] [place] [address], [place] [address] Aug, [facility] [address] [id number] [address] [place] [address], [place] [address] Aug, [facility] [address] [id number] [address] [place] [address], [place] [address] Aug, [facility] [address] [id number] [address] [place] [address], [place] [address] Aug, [facility] [address] [id number] [address] [place] [address], [place] [address] Aug, [facility] [address] [id number] [address] [place] [address], [place] [address] Aug, [facility] [address] [id number] [address] [place] [address], [place] [address] Aug, [facility] [address] [id number] [address] [place] [address], [place] [address] Aug, [facility] [address] [id number] [address] [place] [address], [place] [address] Aug, 2014 [facility] [address] [id number] [address] [place] [address], [place] [address] Jul, [facility] [address] [id number] [address] [place] [address], [place] [address] Jul, [facility] [address] [id number] [address] [place] [address], [place] [address] Jul, [facility] [address] [id number] [address] [place] [address], [place] [address] Jul, [facility] [address] [id number] [address] [place] [address], [place] [address] 23 Jul, 2014 [facility] [address] [id number] [address] [place] [address], [place] [address] 23 Jul, 2014 [facility] [address] [id number] [address] [place] [address], [place] [address] 23 Jul, 2014 [facility] [address] [id number] [address] [place] [address], [place] [address] 23 Jul, 2014 [facility] [address] [id number] [address] [place] [address], [place] [address] 20 Jul, 2014 [facility] [address] [id number] [address] [place] [address], [place] [address] 20 Jul, 2014 [facility] [address] [id number] [address] [place] [address], [place] [address] 19 Jul, 2014 [facility] [address] [id number] [address] [place] [address], [place] [address] 19 Jul, 2014 [facility] [address] [id number] [address] [place] [address], [place] [address] 17 Jul, 2014 [facility] [address] [id number] [address] [place] [address], [place] [address] 17 Jul, 2014 [facility] [address] [id number] [address] [place] [address], [place] [address] 16 Jul, 2014 [facility] [address] [id number] [address] [place] [address], [place] [address] 16 Jul, 2014 [facility] [address] [id number] [address] [place] [address], [place] [address] 16 Jul, 2014 [facility] [address] [id number] [address] [place] [address] 16 Jul, 2014 [facility] [address] [id number] [address] [place] [address] 13 Jul, 2014 [facility] [address] [id number] [address] [place] [address], [place] [address] Jul, [facility] [address] [id number] [address] [place] [address], [place] [address] Jul, [facility] [address] [id number] [address] [place] [address], [place] [address] Jul, 2014 [facility] [address] [id number] [address] [place] [address], [place] [address] Jul, 2014 [facility] [address] [id number] [address] [place] [address], [place] [address] Jul, [facility] [address] [id number] [address] [place] [address], [place] [address] Jul, [facility] [address] [id number] [address] [place] [address], [place] [address] Jul, [facility] [address] [id number] [address] [place] [address], [place] [address] Jul, [facility] [address] [id number] [address] [place] [address], [place] [address] Jul, [facility] [address] [id number] [address] [place] [address], [place] [address] Jul, [facility] [address] [id number] [address] [place] [address], [place] [address] Jul, [facility] [address] [id number] [address] [place] [address], [place] [address] Jun, [facility] [address] [id number] [address] [place] [address], [place] [address] Jun, [facility] [address] [id number] [address] [place] [address], [place] [address] Jun, [facility] [address] [id number] [address] [place] [address], [place] [address] Jun, [facility] [address] [id number] [address] [place] [address], [place] [address] Jun, [facility] [address] [id number] [address] [place] [address], [place] [address] Jun, [facility] [address] [id number] [address] [place] [address], [place] [address] Jun, [facility] [address] [id number] [address] [place] [address], [place] [address] Jun, [facility] [address] [id number] [address] [place] [address], [place] [address] Jun, [facility] [address] [id number] [address] [place] [address], [place] [address] Jun, [facility] [address] [id number] [address] [place] [address], [place] [address] Jun, [facility] [address] [id number] [address] [place] [address], [place] [address] Jun, [facility] [address] [id number] [address] [place] [address], [place] [address] Jun, [facility] [address] [id number] [address] [place] [address], [place] [address] Jun, [facility] [address] [id number] [address] [place] [address], [place] [address] Jun, [facility] [address] [id number] [address] [place] [address], [place] [address] Jun, [facility] [address] [id number] [address] [place] [address], [place] [address] Jun, [facility] [address] [id number] [address] [place] [address], [place] [address] Jun, [facility] [address] [id number] [address] [place] [address], [place] [address] Jun, [facility] [address] [id number] [address] [place] [address], [place] [address] Jun, [facility] [address] [id number] [address] [place] [address], [place] [address] May, [facility] [address] [id number] [address] [place] [address], [place] [address] May, [facility] [address] [id number] [address] [place] [address], [place] [address] May, [facility] [address] [id number] [address] [place] [address], [place] [address] May, [facility] [address] [id number] [address] [place] [address], [place] [address] May, [facility] [address] [id number] [address] [place] [address], [place] [address] May, [facility] [address] [id number] [address] [place] [address], [place] [address] May, [facility] [address] [id number] [address] [place] [address], [place] [address] May, [facility] [address] [id number] [address] [place] [address], [place] [address] May, [facility] [address] [id number] [address] [place] [address], [place] [address] May, [facility] [address] [id number] [address] [place] [address], [place] [address] May, [facility] [address] [id number] [address] [place] [address], [place] [address] 18 May, 2014 [facility] [address] [id number] [address] [place] [address], [place] [address] 18 May, 2014 [facility] [address] [id number] [address] [place] [address], [place] [address] 17 May, 2014 [facility] [address] [id number] [address] [place] [address], [place] [address] 16 May, 2014 [facility] [address] [id number] [address] [place] [address], [place] [address] 16 May, 2014 [facility] [address] [id number] [address] [place] [address], [place] [address] 15 May, 2014 [facility] [address] [id number] [address] [place] [address], [place] [address] 15 May, 2014 [facility] [address] [id number] [address] [place] [address], [place] [address] May, [facility] [address] [id number] [address] [place] [address], [place] [address] May, [facility] [address] [id number] [address] [place] [address], [place] [address] May, [facility] [address] [id number] [address] [place] [address], [place] [address] May, [facility] [address] [id number] [address] [place] [address], [place] [address] May, [facility] [address] [id number] [address] [place] [address], [place] [address] May, [facility] [address] [id number] [address] [place] [address], [place] [address] May, [facility] [address] [id number] [address] [place] [address], [place] [address] May, [facility] [address] [id number] [address] [place] [address], [place] [address] May, [facility] [address] [id number] [address] [place] [address], [place] [address] May, [facility] [address] [id number] [address] [place] [address], [place] [address] May, [facility] [address] [id number] [address] [place] [address], [place] [address] May, [facility] [address] [id number] [address] [place] [address], [place] [address] May, [facility] [address] [id number] [address] [place] [address], [place] [address] May, [facility] [address] [id number] [address] [place] [address], [place] [address] May, [facility] [address] [id number] [address] [place] [address], [place] [address] May, [facility] [address] [id number] [address] [place] [address], [place] [address] Apr, [facility] [address] [id number] [address] [place] [address], [place] [address] Apr, [facility] [address] [id number] [address] [place] [address], [place] [address] Apr, [facility] [address] [id number] [address] [place] [address], [place] [address] Apr, [facility] [address] [id number] [address] [place] [address], [place] [address] Apr, [facility] [address] [id number] [address] [place] [address], [place] [address] Apr, [facility] [address] [id number] [address] [place] [address], [place] [address] Apr, [facility] [address] [id number] [address] [place] [address], [place] [address] Apr, [facility] [address] [id number] [address] [place] [address], [place] [address] Apr, [facility] [address] [id number] [address] [place] [address], [place] [address] Apr, [facility] [address] [id number] [address] [place] [address], [place] [address] Mar, [facility] [address] [id number] [address] [place] [address], [place] [address] Mar, [facility] [address] [id number] [address] [place] [address] [address] Mar, [facility] [address] [id number] [address] [place] [address], [place] [address] 31 Mar, 2013 [facility] [address] [id number] [address] [place] [address], [place] [address] Mar, [facility] [address] [id number] [address] [place] [address], [place] [address] 30 Mar, 2014 [facility] [address] [id number] [address] [place] [address], [place] [address] Mar, [facility] [address] [id number] [address] [place] [address], [place] [address] Mar, [facility] [address] [id number] [address] [place] [address], [place] [address] Mar, [facility] [address] [id number] [address] [place] [address], [place] [address] Mar, [facility] [address] [id number] [address] [place] [id number] Mar, [facility] [address] [id number] [address] [place] [address] Mar, [facility] [address] [id number] [address] [place] [address] Mar, [facility] [address] [id number] [address] [place] [address] Mar, 2013 [facility] [address] [id number] [address] [place] [id number] Mar, 2013 [facility] [address] [id number] [address] [place] [address] Mar, [facility] [address] [id number] [address] [place] [address] Mar, [facility] [address] [id number] [address] [place] [id number] Mar, 2013 [facility] [address] [id number] [address] [place] [address], [place] [address] 02 Mar, 2013 [facility] [address] [id number] [address] [place] [address], [place] [address] 02 Mar, 2013 [facility] [address] [id number] [address] [place] [address], [place] [address] 05 Sep, 2013 [facility] [address] [id number] [address] [place] [address], [place] [address] 05 Sep, 2013 [facility] [address] [id number] [address] [place] [address], [place] [address] 04 Sep, 2013 [facility] [address] [id number] [address] [place] [address], [place] [address] 04 Sep, 2013 [facility] [address] [id number] [address] [place] [address], [place] [address] 03 Feb, 2013 [facility] [address] [id number] [address] [place] [address], [place] [address] 03 Feb, 2013 [facility] [address] [id number] [address] [place] [address], [place] [address] 02 Feb, 2013 [facility] [address] [id number] [address] [place] [address], [place] [address] Feb, 2013 [facility] [address] [id number] [address] [place] [address], [place] [address] 02 Feb, 2013 [facility] [address] [id number] [address] [place] [address], [place] [address] Feb, 2013 [facility] [address] [id number] [address] [place] [address], [place] [address] Jan, [facility] [address] [id number] [address] [place] [address], [place] [address] Jan, [facility] [address] [id number] [address] [place] [address], [place] [address] Jan, [facility] [address] [id number] [address] [place] [address], [place] [address] Jan, [facility] [address] [id number] [facility] [place] [address] Jan, [facility] [address] [id number] [address] [place] [address], [place] [address] Jan, [facility] [address] [id number] [address] [place] [address], [place] [address] Jan, [facility] [address] [id number] [address] [place] [address], [place] [address] Jan, [facility] [address] [id number] [address] [place] [address], [place] [address] Jan, [facility] [address] [id number] [address] [place] [address], [place] [address] Jan, [facility] [address] [id number] [address] [place] [address], [place] [address] Jan, [facility] [address] [id number] [address] [place] [address], [place] [address] Jan, [facility] [address] [id number] [address] [place] [address], [place] [address] Dec, [facility] [address] [id number] [address] [place] [address], [place] [address] Dec, [facility] [address] [id number] [address] [place] [address], [place] [address] Dec, [facility] [address] [id number] [address] [place] [address], [place] [address] Dec, [facility] [address] [id number] [address] [place] [address], [place] [address] Dec, [facility] [address] [id number] [address] [place] [address], [place] [address] Dec, [facility] [address] [id number] [address] [place] [address], [place] [address] Dec, [facility] [address] [id number] [address] [place] [address], [place] [address] Dec, [facility] [address] [id number] [facility] [place] [address] Dec, [facility] [address] [id number] [address] [place] [address], [place] [address] Dec, [facility] [address] [id number] [address] [place] [address], [place] [address] Dec, [facility] [address] [id number] [address] [place] [address], [place] [address] Dec, [facility] [address] [id number] [address] [place] [address], [place] [address] Nov, [facility] [address] [id number] [address] [place] [address], [place] [address] Nov, [facility] [address] [id number] [address] [place] [address], [place] [address] Nov, [facility] [address] [id number] [address] [place] [address], [place] [address] Nov, [facility] [address] [id number] [address] [place] [address], [place] [address] Nov, [facility] [address] [id number] [address] [place] [address], [place] [address] Nov, [facility] [address] [id number] [address] [place] [address], [place] [address] Nov, [facility] [address] [id number] [address] [place] [address], [place] [address] Nov, [facility] [address] [id number] [address] [place] [address], [place] [address] Nov, [facility] [address] [id number] [address] [place] [address], [place] [address] Nov, [facility] [address] [id number] [address] [place] [address], [place] [address] Nov, [facility] [address] [id number] [facility] [place] [address] Nov, [facility] [address] [id number] [address] [place] [address], [place] [address] Nov, [facility] [address] [id number] [address] [place] [address], [place] [address] Nov, [facility] [address] [id number] [address] [place] [address], [place] [address] October, [facility] [address] [id number] [address] [place] [address], [place] [address] October, [facility] [address] [id number] [address] [place] [address], [place] [address] October, [facility] [address] [id number] [address] [place] [address], [place] [address] October, [facility] [address] [id number] [address] [place] [address], [place] [address] October, [facility] [address] [id number] [address] [place] [address], [place] [address] October, [facility] [address] [id number] [address] [place] [address], [place] [address] October, [facility] [address] [id number] [address] [place] [address], [place] [address] October, [facility] [address] [id number] [address] [place] [address], [place] [address] October, [facility] [address] [id number] [address] [place] [address], [place] [address] October, [facility] [address] [id number] [address] [place] [address], [place] [address] October, [facility] [address] [id number] [address] [place] [address], [place] [address] October, [facility] [address] [id number] [address] [place] [address], [place] [address] Sep, [facility] [address] [id number] [facility] [place] [address] Sep, [facility] [address] [id number] [address] [place] [address], [place] [address] Sep, [facility] [address] [id number] [facility] [place] [address] Sep, [facility] [address] [id number] [address] [place] [address], [place] [address] Sep, [facility] [address] [id number] [address] [place] [address], [place] [address] Sep, [facility] [address] [id number] [address] [place] [address], [place] [address] Aug, [facility] [address] [id number] [address] [place] [address], [place] [address] Aug, [facility] [address] [id number] [address] [place] [address], [place] [address] Aug, [facility] [address] [id number] [address] [place] [address], [place] [address] Aug, [facility] [address] [id number] [address] [place] [address], [place] [address] Aug, [facility] [address] [id number] [address] [place] [address], [place] [address] Aug, [facility] [address] [id number] [address] [place] [address], [place] [address] Jul, [facility] [address] [id number] [address] [place] [address], [place] [address] Jul, [facility] [address] [id number] [address] [place] [address], [place] [address] Jul, [facility] [address] [id number] [address] [place] [address], [place] [address] Jul, [facility] [address] [id number] [address] [place] [address], [place] [address] 13 Jul, 2013 [facility] [address] [id number] [address] [place] [address], [place] [address] Jul, [facility] [address] [id number] [address] [place] [address], [place] [address] Jul, [facility] [address] [id number] [address] [place] [address], [place] [address] Jul, [facility] [address] [id number] [address] [place] [address], [place] [address] Jul, [facility] [address] [id number] [address] [place] [address], [place] [address] Jul, [facility] [address] [id number] [address] [place] [address], [place] [address] Jun, [facility] [address] [id number] [address] [place] [address], [place] [address] Jun, [facility] [address] [id number] [address] [place] [address], [place] [address] Jun, [facility] [address] [id number] [address] [place] [address], [place] [address] Jun, [facility] [address] [id number] [address] [place] [address], [place] [address] Jun, [facility] [address] [id number] [address] [place] [address], [place] [address] Jun, [facility] [address] [id number] [address] [place] [address], [place] [address] Jun, [facility] [address] [id number] [address] [place] [address], [place] [address] Jun, [facility] [address] [id number] [address] [place] [address], [place] [address] May, [facility] [address] [id number] [address] [place] [address], [place] [address] May, [facility] [address] [id number] [address] [place] [address], [place] [address] May, [facility] [address] [id number] [address] [place] [address], [place] [address] May, [facility] [address] [id number] [address] [place] [address], [place] [address] May, [facility] [address] [id number] [address] [place] [address], [place] [address] May, [facility] [address] [id number] [address] [place] [address], [place] [address] May, [facility] [address] [id number] [address] [place] [address], [place] [address] May, [facility] [address] [id number] [address] [place] [address], [place] [address] Apr, [facility] [address] [id number] [address] [place] [address] Apr, [facility] [address] [id number] [address] [place] [address], [place] [address] Apr, [facility] [address] [id number] [address] [place] [address] Apr, [facility] [address] [id number] [address] [place] [address] Apr, [facility] [address] [id number] [address] [place] [address] Apr, [facility] [address] [id number] [address] [place] [address], [place] [address] Mar, [facility] [address] [id number] [address] [place] [address] Mar, [facility] [address] [id number] [address] [place] [address], [place] [address] Mar, [facility] [address] [id number] [address] [place] [address], [place] [address] Mar, [facility] [address] [id number] [address] [place] [address], [place] [address] Mar, [facility] [address] [id number] [address] [place] [address], [place] [address] Mar, [facility] [address] [id number] [address] [place] [address], [place] [address] Mar, [facility] [address] [id number] [address] [place] [address], [place] [address] 30 Feb, 2012 [facility] [address] [id number] [address] [place] [address], [place] [address] 30 Feb, 2013 [facility] [address] [id number] [address] [place] [address], [place] [address] 27 Feb, 2013 [facility] [address] [id number] [address] [place] [address], [place] [address] Feb, 2012 [facility] [address] [id number] [address] [place] [address], [place] [address] Feb, [facility] [address] [id number] [address] [place] [address], [place] [address] Feb, [facility] [address] [id number] [address] [place] [address], [place] [address] Jan, [facility] [address] [id number] [address] [place] [address], [place] [address] Jan, [facility] [address] [id number] [address] [place] [address], [place] [address] Jan, [facility] [address] [id number] [address] [place] [address], [place] [address] Jan, [facility] [address] [id number] [address] [place] [address], [place] [address] Jan, [facility] [address] [id number] [address] [place] [address], [place] [address] Jan, [facility] [address] [id number] [address] [place] [address], [place] [address] Jan, [facility] [address] [id number] [address] [place] [address], [place] [address] Jan, [facility] [address] [id number] [address] [place] [address], [place] [address] Jan, [facility] [address] [id number] [address] [place] [address], [place] [address] Dec, [facility] [address] [id number] [address] [place] [address], [place] [address] Dec, [facility] [address] [id number] [address] [place] [address], [place] [address] Dec, [facility] [address] [id number] [address] [place] [address], [place] [address] Dec, [facility] [address] [id number] [address] [place] [address], [place] [address] Dec, [facility] [address] [id number] [address] [place] [address], [place] [address] Dec, [facility] [address] [id number] [address] [place] [address], [place] [address] Dec, [facility] [address] [id number] [address] [place] [address], [place] [address] Dec, [facility] [address] [id number] [address] [place] [address], [place] [address] Dec, [facility] [address] [id number] [address] [place] [address], [place] [address] Dec, [facility] [address] [id number] [address] [place] [address], [place] [address] Dec, [facility] [address] [id number] [address] [place] [address], [place] [address] Dec, [facility] [address] [id number] [address] [place] [address], [place] [address] Dec, [facility] [address] [id number] [address] [place] [address], [place] [address] Nov, [facility] [address] [id number] [address] [place] [address], [place] [address] Nov, [facility] [address] [id number] [address] [place] [address], [place] [address] Nov, [facility] [address] [id number] [address] [place] [address], [place] [address] Nov, [facility] [address] [id number] [address] [place] [address], [place] [address] October, [facility] [address] [id number] [address] [place] [address], [place] [address] October, [facility] [address] [id number] [address] [place] [address], [place] [address] October, [facility] [address] [id number] [address] [place] [address], [place] [address] October, [facility] [address] [id number] [address] [place] [address], [place] [address] October, [facility] [address] [id number] [address] [place] [address], [place] [address] October, [facility] [address] [id number] [address] [place] [address], [place] [address] Sep, [facility] [address] [id number] [address] [place] [address], [place] [address] Sep, [facility] [address] [id number] [address] [place] [address], [place] [address] Sep, [facility] [address] [id number] [address] [place] [address], [place] [address] Sep, [facility] [address] [id number] [address] [place] [address], [place] [address] Sep, [facility] [address] [id number] [facility] [place] [address] 16 Sep, 2012 [facility] [address] [id number] [address] [place] [address], [place] [address] 12 Sep, 2012 [facility] [address] [id number] [address] [place] [address], [place] [address] Sep, [facility] [address] [id number] [address] [place] [address], [place] [address] Sep, [facility] [address] [id number] [address] [place] [address], [place] [address] Sep, [facility] [address] [id number] [address] [place] [address], [place] [address] Sep, [facility] [address] [id number] [address] [place] [address], [place] [address] Aug, [facility] [address] [id number] [address] [place] [address], [place] [address] 25 Aug, 2012 [facility] [address] [id number] [address] [place] [address], [place] [address] 25 Aug, 2012 [facility] [address] [id number] [address] [place] [address], [place] [address] 21 Aug, 2012 [facility] [address] [id number] [address] [place] [address], [place] [address] 19 Aug, 2012 [facility] [address] [id number] [address] [place] [address], [place] [address] 18 Aug, 2012 [facility] [address] [id number] [address] [place] [address], [place] [address] 17 Aug, 2012 [facility] [address] [id number] [address] [place] [address], [place] [address] 15 Aug, 2012 [facility] [address] [id number] [address] [place] [address], [place] [address] 15 Aug, 2012 [facility] [address] [id number] [address] [place] [address], [place] [address] Aug, [facility] [address] [id number] [address] [place] [address], [place] [address] Aug, [facility] [address] [id number] [address] [place] [address], [place] [address] Aug, [facility] [address] [id number] [address] [place] [address], [place] [address] Jul, [facility] [address] [id number] [address] [place] [address], [place] [address] Jul, [facility] [address] [id number] [address] [place] [address], [place] [address] Jul, [facility] [address] [id number] [address] [place] [address], [place] [address] Jul, [facility] [address] [id number] [address] [place] [address], [place] [address] Jul, [facility] [address] [id number] [address] [place] [address], [place] [address] Jul, [facility] [address] [id number] [address] [place] [address], [place] [address] Jul, [facility] [address] [id number] [address] [place] [address], [place] [address] Jul, [facility] [address] [id number] [address] [place] [address], [place] [address] Jul, [facility] [address] [id number] [address] [place] [address], [place] [address] Jul, [facility] [address] [id number] [address] [place] [address], [place] [address] May, [facility] [address] [id number] [place] [id number] May, [facility] [address] [id number] [address] [place] [address], [place] [address] May, [facility] [address] [id number] [address] [place] [id number] May, [facility] [address] [facility] [facility] [id number] [address] [place] [id number] May, [facility] [address] [facility] [id number] [address] [place] [id number] Apr, [facility] [place] [address] [id number] [place] [id number] Apr, [facility] [address] [facility] [id number] [address] [place] [id number] Apr, [facility] [address] [facility] [id number] [address] [place] [id number] Mar, [facility] [address] [id number] [place] [id number] Mar, [facility] [address] [facility] [id number] [address] [place] [address] Mar, [facility] [address] [id number] [place] [id number] Feb, [facility] [address] [facility] [id number] [address] [place] [id number] Feb, [facility] [address] [facility] [id number] [address] [place] [id number] Feb, [facility] [place] [address] [id number] [place] [id number] Feb, [facility] [address] [id number] [place] [id number] Feb, [facility] [address] [id number] [place] [id number] Jan, [facility] [address] [id number] [address] [place] [address], [place] [address] Jan, [facility] [place] [address] [id number] [place] [id number] Jan, [facility] [address] [id number] [place] [id number] Jan, [facility] [place] [address] [id number] [place] [id number] Jan, [facility] [address] [facility] [id number] [address] [place] [address], [place] [address] Jan, [facility] [address] [facility] [id number] [address] [place] [address], [place] [address] Jan, [facility] [address] [facility] [id number] [address] [place] [address], [place] [address] Aug, [facility] [address] [id number] [place] [id number] Aug, [facility] [address] [facility] [id number] [address] [place] [address], [place] [address] Jul, [facility] [address] [facility] [id number] [address] [place] [address], [place] [address] Jul, [facility] [address] [facility] [id number] [address] [place] [address], [place] [address] Jul, [facility] [address] [id number] [place] [id number] Jul, [facility] [address] [facility] [id number] [address] [place] [address], [place] [address] Jul, [facility] [place] [address] [id number] [place] [id number] Jul, [facility] [address] [facility] [id number] [address] [place] [address], [place] [address] Jul, [facility] [address] [id number] [place] [id number] Jul, [facility] [place] [address] [id number] [place] [id number] Jul, [facility] [address] [id number] [place] [id number] Jul, [facility] [address] [facility] [id number] [address] [place] [address], [place] [address] May, [facility] [address] [id number] [address] [place] [id number] May, [facility] [address] [id number] [address] [place] [id number] May, [facility] [address] [id number] [address] [place] [id number] Apr, [facility] [address] [id number] [address] [place] [id number] Jan, [facility] [address] [id number] [address] [place] [id number] Jan, [facility] [address] [id number] [address] [place] [id number] Dec, [facility] [address] [id number] [address] [place] [id number] Dec, [facility] [address] [id number] [address] [place] [id number] May, [facility] [address] [id number] [address] [place] [id number] Mar, [facility] [address] [id number] [address] [place] [id number] Mar, [facility] [address] [id number] [address] [place] [id number] Jan, IMMUNIZATIONS No Known Immunizations SOCIAL HISTORY Never Assessed REASON FOR VISIT PLAN OF CARE VITAL SIGNS Height 63 in 2014-06-09 Weight 184.49 lbs 2014-06-09 Temperature 99 degrees Fahrenheit 2014-06-09 Heart Rate 86 bpm 2014-06-09 Respiratory Rate 20 2014-06-09 Blood pressure systolic 122 mmHg 2014-06-09 Blood pressure diastolic 82 mmHg 2014-06-09 MEDICATIONS Unknown Medications RESULTS No Results PROCEDURES [...]
--- OUTSIDE RECORDS SUMMARY | 2020-01-28 12:54 | XMS REPORT ---
Author Author Heydi Candelario Doctor Organization [facility] Address Unknown Phone Unavailable Care Team Providers Care Digital Sales Executive Name Role Phone Migration, Doctor Unavailable Unavailable PROBLEMS Type Condition ICD9-CM Code [id number] Code Onset Dates Condition S tatus SNOMED Code Problem Chronic pain syndrome G89.4 Active 226006747 Problem Sore throat J02.9 Active 27467980 3 Problem Choriocarcinoma C58 Active 1881 78329 Problem halfway current use of anticoagulant Z79.01 Active 008083319 Problem History of venous thromboembolism V12.51 Active 439396213 Problem Cellulitis of unspecified part of limb L03.119 Active 626394027 Problem Gastroesophageal reflux disease without esophagitis K21.9 Active 719568952 Problem History of pulmonary embolism Z86.711 Active 092278247 Problem Pseudotumor cerebri G93.2 Active 83657957 Problem History of DVT (deep vein thrombosis) Z86.718 Active 975053027 ALLERGIES No Information ENCOUNTERS Encounter Location Date Diagnosis [place] [address] [address] 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 [id number] [address] [place] [address] Apr, Cellulitis of unspecified pa rt of limb L03.119 ; Allergic contact dermatitis due to adhesives L23.1 and Chronic pain syndrome G89.4 [facility] [address] [facility] [id number] [address] [place] [address] Apr, [place] [address] [facility] [id number] [address] [place] [phone] Apr, halfway 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.01 ; Cellulitis of unspecified part of limb L03.119 ; Chronic pain syndrome G89.4 and Anxiety F41.9 [place] [address] [address] [place] [id number] [address] [place] [phone] 16 Apr, 2015 [place] [address] [place] [id number] [place] [address] Apr, [place] [address] [address] Mar, [place] [address] [address] [place] [id number] [place] [address] Mar, [place] [address] [address] Mar, Sore throat J02.9 ; Gastroes ophageal reflux disease without esophagitis K21.9 ; Pseudotumor cerebri G93.2 ; Chronic pain syndrome G89.4 ; Choriocarcinoma C58 ; History of pulmonary embolism Z86.711 ; History of DVT (deep vein thrombosis) Z86.718 ; Anxiety F41.9 and Tachycardia R00.0 [place] [address] [address] Feb, Anxiety 300.00 and Chronic p ain 338.29 [place] [address] [address] [place] [id number] [address] [place] [phone] Feb, [place] [id number] [place] [address] Feb, [place] [address] [place] [id number] [place] [address] Jan, halfway current use of ant icoagulant therapy V58.61 and Dysuria 788.1 [place] [address] [address] [place] [id number] [address] [place] [address] Jan, Dysuria 788.1 [place] [address] [place] [id number] [place] [address] Jan, Anxiety 300.00 and Chronic p ain 338.29 [place] [address] [address] Jan, [facility] [address] [address] Jan, [place] [address] [address] Jan, [place] [address] [address] Dec, Weakness 780.79 [place] [address] [address] Dec, 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 use of ant icoagulant therapy V58.61 [place] [address] [address] Dec, Palpitations 785.1 ; Tremor 781.0 ; Weakness 780.79 ; halfway current use of anticoagulant therapy V58.61 and Yeast vaginitis 112.1 [place] [address] [address] Dec, [place] [address] [address] Dec, Cervicalgia 723.1 ; Tachycar yoseph 785.0 ; Pseudotumor cerebri 348.2 and History of venous thromboembolism V12.51 [place] [address] [place] [id number] [address] [place] [address] Nov, [place] [address] [address] Nov, [place] [address] [address] Nov, Tachycardia 785.0 ; Pseudotu mor cerebri 348.2 ; Anxiety 300.00 and History of venous thromboembolism V12.51 [facility] [address] [id number] [address] [place] [address], [place] [address] Nov, [facility] [address] [id number] [address] [place] [address], [place] [address] 18 Nov, 2014 [facility] [address] [id number] [address] [place] [address], [place] [address] 16 Nov, 2014 [facility] [address] [id number] [address] [place] [address], [place] [address] Nov, [facility] [address] [id number] [address] [place] [address], [place] [address] Nov, [facility] [address] [id number] [address] [place] [address], [place] [address] Nov, [facility] [address] [id number] [address] [place] [address], [place] [address] Nov, [facility] [address] [id number] [address] [place] [address] October, [facility] [address] [id number] [address] [place] [address] October, [facility] [address] [id number] [address] [place] [address] October, Pain in thoracic spine 724.1 and Tachycardia 785.0 [facility] [address] [id number] [address] [place] [address] October, [facility] [address] [id number] [address] [place] [address] October, [facility] [address] [id number] [address] [place] [address] Sep, [facility] [address] [id number] [address] [place] [address] Sep, [facility] [address] [id number] [address] [place] [phone] Aug, [facility] [address] [id number] [address] [place] [address], [place] [address] Aug, [facility] [address] [id number] [address] [place] [address], [place] [address] Aug, [facility] [address] [id number] [address] [place] [address], [place] [address] 17 Aug, 2014 [facility] [address] [id number] [address] [place] [address], [place] [address] Aug, [facility] [address] [id number] [address] [place] [address], [place] [address] 16 Aug, 2014 [facility] [address] [id number] [address] [place] [address], [place] [address] Aug, [facility] [address] [id number] [address] [place] [address], [place] [address] Aug, [facility] [address] [id number] [address] [place] [address], [place] [address] Aug, 2014 [facility] [address] [id number] [address] [place] [address], [place] [address] Aug, [facility] [address] [id number] [address] [place] [address], [place] [address] Aug, [facility] [address] [id number] [address] [place] [address], [place] [address] Aug, [facility] [address] [id number] [address] [place] [address], [place] [address] Jul, 2014 [facility] [address] [id number] [address] [place] [address], [place] [address] Jul, 2014 [facility] [address] [id number] [address] [place] [address], [place] [address] Jul, 2014 [facility] [address] [id number] [address] [place] [address], [place] [address] Jul, 2014 [facility] [address] [id number] [address] [place] [address], [place] [address] b, 2014 [facility] [address] [id number] [address] [place] [address], [place] [address] 23 Jul, 2014 [facility] [address] [id number] [address] [place] [address], [place] [address] 23 Jul, 2014 [facility] [address] [id number] [address] [place] [address], [place] [address] 23 Jul, 2014 [facility] [address] [id number] [address] [place] [address], [place] [address] 20 Jul, 2014 [facility] [address] [id number] [address] [place] [address], [place] [address] 20 Jul, 2014 [facility] [address] [id number] [address] [place] [address], [place] [address] 19 Jul, 2014 [facility] [address] [id number] [address] [place] [address], [place] [address] 19 Jul, 2014 [facility] [address] [id number] [address] [place] [address], [place] [address] 17 Jul, 2014 [facility] [address] [id number] [address] [place] [address], [place] [address] 17 Jul, 2014 [facility] [address] [id number] [address] [place] [address], [place] [address] 16 Jul, 2014 [facility] [address] [id number] [address] [place] [address], [place] [address] 16 Jul, 2014 [facility] [address] [id number] [address] [place] [address], [place] [address] 16 Jul, 2014 [facility] [address] [id number] [address] [place] [address], [place] [address] 16 Jul, 2014 [facility] [address] [id number] [address] [place] [address], [place] [address] 13 Jul, 2014 [facility] [address] [id number] [address] [place] [address], [place] [address] Jul, 2014 [facility] [address] [id number] [address] [place] [address], [place] [address] Jul, 2014 [facility] [address] [id number] [address] [place] [address], [place] [address] Jul, 2014 [facility] [address] [id number] [address] [place] [address], [place] [address] Jul, 2014 [facility] [address] [id number] [address] [place] [address], [place] [address] Jul, 2014 [facility] [address] [id number] [address] [place] [address], [place] [address] Jul, [facility] [address] [id number] [address] [place] [address], [place] [address] Jul, [facility] [address] [id number] [address] [place] [address], [place] [address] Jul, [facility] [address] [id number] [address] [place] [address], [place] [address] Jul, [facility] [address] [id number] [address] [place] [address], [place] [address] Jul, [facility] [address] [id number] [address] [place] [address], [place] [address] Jul, [facility] [address] [id number] [address] [place] [address], [place] [address] Jun, [facility] [address] [id number] [address] [place] [address], [place] [address] Jun, [facility] [address] [id number] [address] [place] [address], [place] [address] Jun, [facility] [address] [id number] [address] [place] [address], [place] [address] Jun, [facility] [address] [id number] [address] [place] [address], [place] [address] Jun, [facility] [address] [id number] [address] [place] [address], [place] [address] Jun, [facility] [address] [id number] [address] [place] [address], [place] [address] Jun, [facility] [address] [id number] [address] [place] [address], [place] [address] Jun, [facility] [address] [id number] [address] [place] [address], [place] [address] Jun, [facility] [address] [id number] [address] [place] [address], [place] [address] Jun, [facility] [address] [id number] [address] [place] [address], [place] [address] Jun, [facility] [address] [id number] [address] [place] [address], [place] [address] Jun, [facility] [address] [id number] [address] [place] [address], [place] [address] Jun, [facility] [address] [id number] [address] [place] [address], [place] [address] Jun, [facility] [address] [id number] [address] [place] [address], [place] [address] Jun, [facility] [address] [id number] [address] [place] [address], [place] [address] Jun, [facility] [address] [id number] [address] [place] [address], [place] [address] Jun, [facility] [address] [id number] [address] [place] [address], [place] [address] Jun, [facility] [address] [id number] [address] [place] [address], [place] [address] Jun, [facility] [address] [id number] [address] [place] [address], [place] [address] Jun, [facility] [address] [id number] [address] [place] [address], [place] [address] May, [facility] [address] [id number] [address] [place] [address], [place] [address] May, [facility] [address] [id number] [address] [place] [address], [place] [address] May, [facility] [address] [id number] [address] [place] [address], [place] [address] May, [facility] [address] [id number] [address] [place] [address], [place] [address] May, [facility] [address] [id number] [address] [place] [address], [place] [address] May, [facility] [address] [id number] [address] [place] [address], [place] [address] May, [facility] [address] [id number] [address] [place] [address], [place] [address] May, [facility] [address] [id number] [address] [place] [address], [place] [address] May, [facility] [address] [id number] [address] [place] [address], [place] [address] May, [facility] [address] [id number] [address] [place] [address], [place] [address] May, [facility] [address] [id number] [address] [place] [address], [place] [address] 18 May, 2014 [facility] [address] [id number] [address] [place] [address], [place] [address] 18 May, 2014 [facility] [address] [id number] [address] [place] [address], [place] [address] 17 May, 2014 [facility] [address] [id number] [address] [place] [address], [place] [address] 16 May, 2014 [facility] [address] [id number] [address] [place] [address], [place] [address] 16 May, 2014 [facility] [address] [id number] [address] [place] [address], [place] [address] 15 May, 2014 [facility] [address] [id number] [address] [place] [address], [place] [address] 15 May, 2014 [facility] [address] [id number] [address] [place] [address], [place] [address] May, [facility] [address] [id number] [address] [place] [address], [place] [address] May, [facility] [address] [id number] [address] [place] [address], [place] [address] May, [facility] [address] [id number] [address] [place] [address], [place] [address] May, [facility] [address] [id number] [address] [place] [address], [place] [address] May, [facility] [address] [id number] [address] [place] [address], [place] [address] May, [facility] [address] [id number] [address] [place] [address], [place] [address] May, [facility] [address] [id number] [address] [place] [address], [place] [address] May, [facility] [address] [id number] [address] [place] [address], [place] [address] May, [facility] [address] [id number] [address] [place] [address], [place] [address] May, [facility] [address] [id number] [address] [place] [address], [place] [address] May, [facility] [address] [id number] [address] [place] [address], [place] [address] May, [facility] [address] [id number] [address] [place] [address], [place] [address] May, [facility] [address] [id number] [address] [place] [address], [place] [address] May, [facility] [address] [id number] [address] [place] [address], [place] [address] May, [facility] [address] [id number] [address] [place] [address], [place] [address] May, [facility] [address] [id number] [address] [place] [address], [place] [address] Apr, [facility] [address] [id number] [address] [place] [address], [place] [address] Apr, [facility] [address] [id number] [address] [place] [address], [place] [address] Apr, [facility] [address] [id number] [address] [place] [address], [place] [address] Apr, [facility] [address] [id number] [address] [place] [address], [place] [address] Apr, [facility] [address] [id number] [address] [place] [address], [place] [address] Apr, [facility] [address] [id number] [address] [place] [address], [place] [address] Apr, [facility] [address] [id number] [address] [place] [address], [place] [address] Apr, [facility] [address] [id number] [address] [place] [address], [place] [address] Apr, [facility] [address] [id number] [address] [place] [address], [place] [address] Apr, [facility] [address] [id number] [address] [place] [address], [place] [address] Mar, [facility] [address] [id number] [address] [place] [address], [place] [address] Mar, [facility] [address] [id number] [address] [place] [address], [place] [address] Mar, [facility] [address] [id number] [address] [place] [address], [place] [address] 31 Mar, 2013 [facility] [address] [id number] [address] [place] [address], [place] [address] 30 Mar, 2013 [facility] [address] [id number] [address] [place] [address], [place] [id number] 30 Mar, 2014 [facility] [address] [id number] [address] [place] [address], [place] [id number] Mar, 2013 [facility] [address] [id number] [address] [place] [address], [place] [id number] 17 Mar, 2013 [facility] [address] [id number] [address] [place] [address], [place] [id number] 15 Mar, 2014 [facility] [address] [id number] [address] [place] [id number] 15 Mar, 2014 [facility] [address] [id number] [address] [place] [address], [place] [id number] 15 Mar, 2014 [facility] [address] [id number] [address] [place] [id number] Mar, [facility] [address] [id number] [address] [place] [address], [place] [id number] Mar, [facility] [address] [id number] [address] [place] [id number] Mar, [facility] [address] [id number] [address] [place] [id number] Mar, [facility] [address] [id number] [address] [place] [id number] Mar, 2013 [facility] [address] [id number] [address] [place] [address], [place] [id number] Mar, [facility] [address] [id number] [address] [place] [id number] Mar, [facility] [address] [id number] [address] [place] [id number] Mar, 2013 [facility] [address] [id number] [address] [place] [address], [place] [id number] 02 Mar, 2013 [facility] [address] [id number] [address] [place] [address], [place] [id number] 05 Sep, 2013 [facility] [address] [id number] [address] [place] [address], [place] [id number] 05 Sep, 2013 [facility] [address] [id number] [address] [place] [address], [place] [id number] 04 Sep, 2013 [facility] [address] [id number] [address] [place] [address], [place] [id number] 04 Sep, 2013 [facility] [address] [id number] [address] [place] [address], [place] [id number] 03 Feb, 2013 [facility] [address] [id number] [address] [place] [address], [place] [id number] Feb, 2013 [facility] [address] [id number] [address] [place] [address], [place] [id number] Feb, 2013 [facility] [address] [id number] [address] [place] [address], [place] [id number] Feb, 2013 [facility] [address] [id number] [address] [place] [address], [place] [id number] Feb, 2013 [facility] [address] [id number] [address] [place] [address], [place] [id number] Feb, 2013 [facility] [address] [id number] [address] [place] [address], [place] [id number] Jan, [facility] [address] [id number] [address] [place] [address], [place] [id number] Jan, [facility] [address] [id number] [address] [place] [address], [place] [id number] Jan, [facility] [address] [id number] [address] [place] [address], [place] [id number] Jan, [facility] [address] [id number] [address] [place] [address], [place] [id number] Jan, [facility] [address] [id number] [address] [place] [address], [place] [id number] Jan, [facility] [address] [id number] [address] [place] [address], [place] [id number] Jan, [facility] [address] [id number] [address] [place] [address], [place] [id number] Jan, [facility] [address] [id number] [address] [place] [address], [place] [id number] Jan, [facility] [address] [id number] [address] [place] [address], [place] [id number] Jan, [facility] [address] [id number] [address] [place] [address], [place] [id number] Jan, [facility] [address] [id number] [address] [place] [address], [place] [id number] Jan, [facility] [address] [id number] [address] [place] [address], [place] [id number] Dec, [facility] [address] [id number] [address] [place] [address], [place] [id number] Dec, [facility] [address] [id number] [address] [place] [address], [place] [id number] Dec, [facility] [facility] [address] [id number] [address] [place] [address], [place] [address] Dec, [facility] [address] [id number] [address] [place] [address], [place] [address] Dec, [facility] [address] [id number] [address] [place] [address], [place] [address] Dec, [facility] [address] [id number] [address] [place] [address], [place] [address] Dec, [facility] [address] [id number] [address] [place] [address], [place] [address] Dec, [facility] [address] [id number] [address] [place] [address], [place] [address] Dec, [facility] [address] [id number] [address] [place] [address], [place] [address] Dec, [facility] [address] [id number] [address] [place] [address], [place] [address] Dec, [facility] [address] [id number] [address] [place] [address], [place] [address] Dec, [facility] [address] [id number] [address] [place] [address], [place] [address] Nov, [facility] [address] [id number] [address] [place] [address], [place] [address] Nov, [facility] [address] [id number] [address] [place] [address], [place] [address] Nov, [facility] [address] [id number] [address] [place] [address], [place] [address] Nov, [facility] [address] [id number] [address] [place] [address], [place] [address] Nov, [facility] [address] [id number] [address] [place] [address], [place] [address] Nov, [facility] [address] [id number] [address] [place] [address], [place] [address] Nov, [facility] [address] [id number] [address] [place] [address], [place] [address] Nov, [facility] [address] [id number] [address] [place] [id number] Nov, [facility] [address] [id number] [address] [place] [address], [place] [address] Nov, [facility] [address] [id number] [address] [place] [address], [place] [address] Nov, [facility] [address] [id number] [address] [place] [address], [place] [address] Nov, [facility] [address] [id number] [address] [place] [address], [place] [address] Nov, [facility] [address] [id number] [address] [place] [address], [place] [address] Nov, [facility] [address] [id number] [address] [place] [address], [place] [address] October, [facility] [address] [id number] [address] [place] [address], [place] [address] October, [facility] [address] [id number] [address] [place] [address], [place] [address] October, [facility] [address] [id number] [address] [place] [address], [place] [address] October, [facility] [address] [id number] [address] [place] [address], [place] [address] October, [facility] [address] [id number] [address] [place] [address], [place] [address] October, [facility] [address] [id number] [address] [place] [address], [place] [address] October, [facility] [address] [id number] [address] [place] [address], [place] [address] October, [facility] [address] [id number] [address] [place] [address], [place] [address] October, [facility] [address] [id number] [address] [place] [address], [place] [address] October, [facility] [address] [id number] [address] [place] [address], [place] [address] October, [facility] [address] [id number] [address] [place] [address], [place] [address] October, [facility] [address] [id number] [address] [place] [address], [place] [address] Sep, [facility] [address] [id number] [address] [place] [address], [place] [address] Sep, [facility] [address] [id number] [facility] [place] [address] Sep, [facility] [address] [id number] [address] [place] [address], [place] [address] Sep, [facility] [address] [id number] [address] [place] [address], [place] [address] Sep, [facility] [address] [id number] [address] [place] [address], [place] [address] Sep, [facility] [address] [id number] [address] [place] [address], [place] [address] Aug, [facility] [address] [id number] [address] [place] [address], [place] [address] Aug, [facility] [address] [id number] [address] [place] [address], [place] [address] Aug, [facility] [address] [id number] [address] [place] [address], [place] [address] Aug, [facility] [address] [id number] [address] [place] [address], [place] [address] Aug, [facility] [address] [id number] [address] [place] [address], [place] [address] Aug, [facility] [address] [id number] [address] [place] [address], [place] [address] Jul, [facility] [address] [id number] [address] [place] [address], [place] [address] Jul, [facility] [address] [id number] [address] [place] [address], [place] [address] Jul, [facility] [address] [id number] [address] [place] [address], [place] [address] Jul, [facility] [address] [id number] [address] [place] [address], [place] [address] Jul, [facility] [address] [id number] [address] [place] [address], [place] [address] 13 Jul, 2013 [facility] [address] [id number] [address] [place] [address], [place] [address] Jul, [facility] [address] [id number] [address] [place] [address], [place] [address] Jul, [facility] [address] [id number] [address] [place] [address], [place] [address] Jul, [facility] [address] [id number] [address] [place] [address], [place] [address] Jul, [facility] [address] [id number] [address] [place] [address], [place] [address] Jun, [facility] [address] [id number] [address] [place] [address], [place] [address] Jun, [facility] [address] [id number] [address] [place] [address], [place] [address] Jun, [facility] [address] [id number] [address] [place] [address], [place] [address] Jun, [facility] [address] [id number] [address] [place] [address], [place] [address] Jun, [facility] [address] [id number] [address] [place] [address], [place] [address] Jun, [facility] [address] [id number] [address] [place] [address], [place] [address] Jun, [facility] [address] [id number] [address] [place] [address], [place] [address] Jun, [facility] [address] [id number] [address] [place] [address], [place] [address] May, [facility] [address] [id number] [address] [place] [address], [place] [address] May, [facility] [address] [id number] [address] [place] [address] [address] May, [facility] [address] [id number] [address] [place] [address], [place] [address] May, [facility] [address] [id number] [address] [place] [address], [place] [address] May, [facility] [address] [id number] [address] [place] [address], [place] [address] May, [facility] [address] [id number] [address] [place] [address], [place] [address] May, [facility] [address] [id number] [address] [place] [address], [place] [address] May, [facility] [address] [id number] [address] [place] [address], [place] [address] Apr, [facility] [address] [id number] [address] [place] [address], [place] [address] Apr, [facility] [address] [id number] [address] [place] [id number] Apr, [facility] [address] [id number] [address] [place] [phone] Apr, [facility] [address] [id number] [address] [place] [phone] Apr, [facility] [address] [id number] [address] [place] [id number] Apr, [facility] [address] [id number] [address] [place] [id number] Mar, [facility] [address] [id number] [address] [place] [id number] Mar, [facility] [address] [id number] [address] [place] [id number] Mar, [facility] [address] [id number] [address] [place] [phone] Mar, [facility] [address] [id number] [address] [place] [address], [place] [address] Mar, [facility] [address] [id number] [address] [place] [address], [place] [address] Mar, [facility] [address] [id number] [address] [place] [address], [place] [address] Mar, [facility] [address] [id number] [address] [place] [address], [place] [address] 30 Feb, 2013 [facility] [address] [id number] [address] [place] [address], [place] [address] 30 Feb, 2013 [facility] [address] [id number] [address] [place] [address], [place] [address] 27 Feb, 2013 [facility] [address] [id number] [address] [place] [address], [place] [address] Feb, [facility] [address] [id number] [address] [place] [address], [place] [address] Feb, [facility] [address] [id number] [address] [place] [address], [place] [address] Feb, [facility] [address] [id number] [address] [place] [address], [place] [address] Jan, [facility] [address] [id number] [address] [place] [address], [place] [address] Jan, [facility] [address] [id number] [address] [place] [address], [place] [address] Jan, [facility] [address] [id number] [address] [place] [address], [place] [address] Jan, [facility] [address] [id number] [address] [place] [address], [place] [address] Jan, [facility] [address] [id number] [address] [place] [address], [place] [address] Jan, [facility] [address] [id number] [address] [place] [address], [place] [address] Jan, [facility] [address] [id number] [address] [place] [address], [place] [address] Jan, [facility] [address] [id number] [address] [place] [address], [place] [address] Jan, [facility] [address] [id number] [address] [place] [address], [place] [address] Dec, [facility] [address] [id number] [address] [place] [address], [place] [address] Dec, [facility] [address] [id number] [address] [place] [address], [place] [address] Dec, [facility] [address] [id number] [address] [place] [address], [place] [address] Dec, [facility] [address] [id number] [address] [place] [address], [place] [address] Dec, [facility] [address] [id number] [address] [place] [address], [place] [address] Dec, [facility] [address] [id number] [address] [place] [address], [place] [address] Dec, [facility] [address] [id number] [address] [place] [address], [place] [address] Dec, [facility] [address] [id number] [address] [place] [address], [place] [address] Dec, [facility] [address] [id number] [address] [place] [address], [place] [address] Dec, [facility] [address] [id number] [address] [place] [address], [place] [address] Dec, [facility] [address] [id number] [address] [place] [address], [place] [address] Dec, [facility] [address] [id number] [address] [place] [address], [place] [address] Dec, [facility] [address] [id number] [address] [place] [address], [place] [address] Nov, [facility] [address] [id number] [address] [place] [address], [place] [address] Nov, [facility] [address] [id number] [address] [place] [address], [place] [address] Nov, [facility] [address] [id number] [address] [place] [address], [place] [address] Nov, [facility] [address] [id number] [address] [place] [address], [place] [address] October, [facility] [address] [id number] [address] [place] [address], [place] [address] October, [facility] [address] [id number] [address] [place] [address], [place] [address] October, [facility] [address] [id number] [address] [place] [address], [place] [address] October, [facility] [address] [id number] [address] [place] [address], [place] [address] October, [facility] [address] [id number] [address] [place] [address], [place] [address] October, [facility] [address] [id number] [address] [place] [address], [place] [address] 30 Sep, 2012 [facility] [address] [id number] [address] [place] [address], [place] [address] 29 Sep, 2012 [facility] [address] [id number] [address] [place] [address], [place] [address] 27 Sep, 2012 [facility] [address] [id number] [address] [place] [address], [place] [address] 23 Sep, 2012 [facility] [address] [id number] [address] [place] [address], [place] [address] Sep, [facility] [address] [id number] [address] [place] [address], [place] [address] 16 Sep, 2012 [facility] [address] [id number] [facility] [place] [address] 12 Sep, 2012 [facility] [address] [id number] [address] [place] [address], [place] [address] Sep, [facility] [address] [id number] [address] [place] [address], [place] [address] Sep, [facility] [address] [id number] [address] [place] [address], [place] [address] Sep, [facility] [address] [id number] [address] [place] [address], [place] [address] Sep, [facility] [address] [id number] [address] [place] [address], [place] [address] Aug, [facility] [address] [id number] [address] [place] [address], [place] [address] Aug, [facility] [address] [id number] [address] [place] [address], [place] [address] 25 Aug, 2012 [facility] [address] [id number] [address] [place] [address], [place] [address] 21 Aug, 2012 [facility] [address] [id number] [address] [place] [address], [place] [address] 19 Aug, 2012 [facility] [address] [id number] [address] [place] [address], [place] [address] 18 Aug, 2012 [facility] [address] [id number] [address] [place] [address], [place] [address] 17 Aug, 2012 [facility] [address] [id number] [address] [place] [address], [place] [address] 15 Aug, 2012 [facility] [address] [id number] [address] [place] [address], [place] [address] 15 Aug, 2012 [facility] [address] [id number] [address] [place] [address], [place] [address] 11 Aug, 2012 [facility] [address] [id number] [address] [place] [address], [place] [address] Aug, [facility] [address] [id number] [address] [place] [address], [place] [address] Aug, [facility] [address] [id number] [address] [place] [address], [place] [address] Jul, [facility] [address] [id number] [address] [place] [address], [place] [address] Jul, [facility] [address] [id number] [address] [place] [address], [place] [address] Jul, [facility] [address] [id number] [address] [place] [address], [place] [address] Jul, [facility] [address] [id number] [address] [place] [address], [place] [address] Jul, [facility] [address] [id number] [address] [place] [address], [place] [address] Jul, [facility] [address] [id number] [address] [place] [address], [place] [address] Jul, [facility] [address] [id number] [address] [place] [address], [place] [phone] Jul, [facility] [address] [id number] [address] [place] [address], [place] [phone] Jul, [facility] [address] [id number] [address] [place] [phone] Jul, [facility] [address] [id number] [address] [place] [phone] May, [facility] [address] [id number] [place] [id number] May, [facility] [address] [id number] [address] [place] [phone] May, [facility] [address] [id number] [address] [place] [address], [place] [phone] 14 May, 2012 [facility] [address] [id number] [address] [place] [address], [place] [phone] May, [facility] [address] [id number] [address] [place] [address], [place] [address] Apr, [facility] [place] [address] [id number] [place] [id number] Apr, [facility] [address] [facility] [id number] [address] [place] [address], [place] [phone] Apr, [facility] [address] [facility] [id number] [address] [place] [address], [place] [id number] Mar, [facility] [address] [id number] [place] [id number] Mar, [facility] [address] [facility] [id number] [address] [place] [address], [place] [phone] Mar, [facility] [place] [address] [id number] [place] [id number] Feb, [facility] [address] [facility] [id number] [address] [place] [address], [place] [phone] Feb, [facility] [address] [facility] [id number] [address] [place] [address], [place] [address] Feb, [facility] [address] [id number] [place] [id number] Feb, [facility] [address] [id number] [place] [id number] Feb, [facility] [address] [id number] [place] [id number] Jan, [facility] [address] [id number] [address] [place] [address], [place] [phone] Jan, [facility] [place] [address] [id number] [place] [id number] Jan, [facility] [address] [id number] [place] [id number] Jan, [facility] [place] [address] [id number] [place] [id number] Jan, [facility] [address] [id number] [address] [place] [address], [place] [id number] Jan, [facility] [address] [facility] [id number] [address] [place] [address], [place] [phone] Jan, [facility] [address] [facility] [id number] [address] [place] [address], [place] [phone] Aug, [facility] [place] [address] [facility] [id number] [place] [id number] Aug, [facility] [address] [facility] [id number] [address] [place] [address], [place] [id number] Jul, [facility] [address] [facility] [id number] [address] [place] [address], [place] [phone] Jul, [facility] [address] [facility] [id number] [address] [place] [address], [place] [phone] Jul, [facility] [place] [address] [facility] [id number] [place] [id number] Jul, [facility] [address] [facility] [id number] [address] [place] [address], [place] [phone] Jul, [facility] [place] [address] [facility] [id number] [place] [id number] Jul, [facility] [address] [facility] [id number] [address] [place] [address], [place] [phone] Jul, [facility] [place] [address] [id number] [place] [id number] Jul, [facility] [place] [address] [id number] [place] [id number] Jul, [facility] [place] [address] [id number] [place] [id number] Jul, [facility] [address] [facility] [id number] [address] [place] [address], [place] [phone] May, [facility] [address] [facility] [id number] [address] [place] [address], [place] [phone] May, [facility] [address] [id number] [address] [place] [phone] May, [facility] [address] [id number] [address] [place] [phone] Apr, [facility] [address] [id number] [address] [place] [phone] Jan, [facility] [address] [id number] [address] [place] [phone] Jan, [facility] [address] [id number] [address] [place] [phone] Dec, [facility] [address] [id number] [address] [place] [id number] Dec, [facility] [address] [id number] [address] [place] [phone] 16 May, 2009 [facility] [address] [id number] [address] [place] [phone] Mar, [facility] [address] [id number] [address] [place] [phone] Mar, [facility] [address] [id number] [address] [place] [phone] Jan, IMMUNIZATIONS No Known Immunizations SOCIAL HISTORY Never Assessed REASON FOR VISIT PLAN OF CARE VITAL SIGNS Height 63 in 2012-02-05 Weight 195.5 lbs 2012-02-05 Temperature 99 degrees Fahrenheit 2012-02-05 Heart Rate 88 bpm 2012-02-05 Respiratory Rate 18 2012-02-05 Blood pressure systolic 124 mmHg 2012-02-05 Blood pressure diastolic 82 mmHg 2012-02-05 MEDICATIONS Unknown Medications RESULTS No Results PROCEDURES Procedure Date Ordered Result Body Site ASSAY THYROID STIM HORMONE Feb 05, 2012 VENIPUNCT, ROUTINE* Feb 05, 2012 INSTRUCTIONS MEDICATIONS ADMINISTERED No Known Medications [...]
--- OUTSIDE RECORDS SUMMARY | 2020-01-28 12:54 | XMS REPORT ---
Author Author Heydi Candelario Doctor Organization [facility] Address Unknown Phone Unavailable Care Team Providers Care Finished Yarn Examiner Name Role Phone Migration, Doctor Unavailable Unavailable PROBLEMS Type Condition ICD9-CM Code WOL83-[place] Code Onset Dates Condition S tatus SNOMED Code Problem Chronic pain syndrome G89.4 Active 986934520 Problem Sore throat J02.9 Active 26615395 3 Problem Choriocarcinoma C58 Active 1881 53902 Problem [facility] current use of anticoagulant Z79.01 Active 625749306 Problem History of venous thromboembolism V12.51 Active 130274089 Problem Cellulitis of unspecified part of limb L03.119 Active 399493965 Problem Gastroesophageal reflux disease without esophagitis K21.9 Active 370382169 Problem History of pulmonary embolism Z86.711 Active 223268595 Problem Pseudotumor cerebri G93.2 Active 43872255 Problem History of DVT (deep vein thrombosis) Z86.718 Active 660700425 ALLERGIES No Information ENCOUNTERS Encounter Location Date Diagnosis [place] [address] [address] [facility] [id number] [address] [place] [address] Apr, manager 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 (current) use of 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 Z79.01 [id number] [facility] [id number] [address] [place] [address] Apr, manager 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.01 [id number] [facility] [id number] [address] [place] [address] Apr, Cellulitis of unspecified pa rt of limb L03.119 ; Allergic contact dermatitis due to adhesives L23.1 and Chronic pain syndrome G89.4 [facility] [address] [facility] [id number] [address] [place] [address] Apr, [place] [id number] [facility] [id number] [address] [place] [address] Apr, [facility] 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.01 ; Cellulitis of unspecified part of limb L03.119 ; Chronic pain syndrome G89.4 and Anxiety F41.9 [place] [address] [address] [place] [id number] [address] [place] [address] 16 Apr, 2015 [place] [address] [address] [place] [id number] [place] [address] Apr, [place] [address] [address] Mar, [place] [address] [address] [place] [id number] [place] [address] Mar, [place] [address] [address] Mar, Sore throat J02.9 ; Gastroes ophageal reflux disease without esophagitis K21.9 ; Pseudotumor cerebri G93.2 ; Chronic pain syndrome G89.4 ; Choriocarcinoma C58 ; History of pulmonary embolism Z86.711 ; History of DVT (deep vein thrombosis) Z86.718 ; Anxiety F41.9 and Tachycardia R00.0 [place] [address] [address] Feb, Anxiety 300.00 and Chronic p ain 338.29 [place] [address] [address] [place] [id number] [address] [place] [address] Feb, [place] [address] [id number] [place] [address] Feb, [place] [address] [address] [place] [id number] [place] [address] Jan, [facility] current use of ant icoagulant therapy V58.61 and Dysuria 788.1 [place] [address] [address] [place] [id number] [address] [place] [address] Jan, Dysuria 788.1 [place] [address] [address] [place] [id number] [place] [address] Jan, Anxiety 300.00 and Chronic p ain 338.29 [place] [address] [address] Jan, [facility] [address] [address] Jan, [place] [address] [address] Jan, [place] [address] [address] Dec, Weakness 780.79 [place] [address] [address] Dec, manager 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 current use of ant icoagulant therapy V58.61 [place] [address] [address] Dec, Palpitations 785.1 ; Tremor 781.0 ; Weakness 780.79 ; [facility] current use of anticoagulant therapy V58.61 and Yeast vaginitis 112.1 [place] [address] [address] Dec, [place] [address] [address] Dec, Cervicalgia 723.1 ; Tachycar yoseph 785.0 ; Pseudotumor cerebri 348.2 and History of venous thromboembolism V12.51 [place] [address] [address] [place] [id number] [address] [place] [address] Nov, [place] [address] [address] Nov, [place] [address] [address] Nov, Tachycardia 785.0 ; Pseudotu mor cerebri 348.2 ; Anxiety 300.00 and History of venous thromboembolism V12.51 [facility] [address] [id number] [address] [place] [address], [place] [address] Nov, [facility] [address] [id number] [address] [place] [address], [place] [address] 18 Nov, 2014 [facility] [address] [id number] [address] [place] [address], [place] [address] 16 Nov, 2014 [facility] [address] [id number] [address] [place] [address], [place] [address] Nov, [facility] [address] [id number] [address] [place] [address], [place] [address] Nov, [facility] [address] [id number] [address] [place] [address], [place] [address] Nov, [facility] [address] [id number] [address] [place] [address], [place] [address] Nov, [facility] [address] [id number] [address] [place] [address] October, [facility] [address] [id number] [address] [place] [address] October, [facility] [address] [id number] [address] [place] [address] October, Pain in thoracic spine 724.1 and Tachycardia 785.0 [facility] [address] [id number] [address] [place] [address] October, [facility] [address] [id number] [address] [place] [address] October, [facility] [address] [id number] [address] [place] [address] Sep, [facility] [address] [id number] [address] [place] [address] Sep, [facility] [address] [id number] [address] [place] [address] Aug, [facility] [address] [id number] [address] [place] [address], [place] [address] Aug, [facility] [address] [id number] [address] [place] [address], [place] [address] Aug, [facility] [address] [id number] [address] [place] [address], [place] [address] 17 Aug, 2014 [facility] [address] [id number] [address] [place] [address], [place] [address] Aug, [facility] [address] [id number] [address] [place] [address], [place] [address] 16 Aug, 2014 [facility] [address] [id number] [address] [place] [address], [place] [address] Aug, [facility] [address] [id number] [address] [place] [address], [place] [address] Aug, [facility] [address] [id number] [address] [place] [address], [place] [address] Aug, 2014 [facility] [address] [id number] [address] [place] [address], [place] [address] Aug, [facility] [address] [id number] [address] [place] [address], [place] [address] Aug, [facility] [address] [id number] [address] [place] [address], [place] [address] Aug, [facility] [address] [id number] [address] [place] [address], [place] [address] Jul, 2014 [facility] [address] [id number] [address] [place] [address], [place] [address] Jul, 2014 [facility] [address] [id number] [address] [place] [address], [place] [address] Jul, 2014 [facility] [address] [id number] [address] [place] [address], [place] [address] Jul, 2014 [facility] [address] [id number] [address] [place] [address], [place] [address] b, 2014 [facility] [address] [id number] [address] [place] [address], [place] [address] 23 Jul, 2014 [facility] [address] [id number] [address] [place] [address], [place] [address] 23 Jul, 2014 [facility] [address] [id number] [address] [place] [address], [place] [address] 23 Jul, 2014 [facility] [address] [id number] [address] [place] [address], [place] [address] 20 Jul, 2014 [facility] [address] [id number] [address] [place] [address], [place] [address] 20 Jul, 2014 [facility] [address] [id number] [address] [place] [address], [place] [address] 19 Jul, 2014 [facility] [address] [id number] [address] [place] [address], [place] [address] 19 Jul, 2014 [facility] [address] [id number] [address] [place] [address], [place] [address] 17 Jul, 2014 [facility] [address] [id number] [address] [place] [address], [place] [address] 17 Jul, 2014 [facility] [address] [id number] [address] [place] [address], [place] [address] 16 Jul, 2014 [facility] [address] [id number] [address] [place] [address], [place] [address] 16 Jul, 2014 [facility] [address] [id number] [address] [place] [address], [place] [address] 16 Jul, 2014 [facility] [address] [id number] [address] [place] [address], [place] [address] 16 Jul, 2014 [facility] [address] [id number] [address] [place] [address], [place] [address] 13 Jul, 2014 [facility] [address] [id number] [address] [place] [address], [place] [address] Jul, 2014 [facility] [address] [id number] [address] [place] [address], [place] [address] Jul, 2014 [facility] [address] [id number] [address] [place] [address], [place] [address] Jul, 2014 [facility] [address] [id number] [address] [place] [address], [place] [address] Jul, 2014 [facility] [address] [id number] [address] [place] [address], [place] [address] Jul, 2014 [facility] [address] [id number] [address] [place] [address], [place] [address] Jul, [facility] [address] [id number] [address] [place] [address], [place] [address] Jul, [facility] [address] [id number] [address] [place] [address], [place] [address] Jul, [facility] [address] [id number] [address] [place] [address], [place] [address] Jul, [facility] [address] [id number] [address] [place] [address], [place] [address] Jul, [facility] [address] [id number] [address] [place] [address], [place] [address] Jul, [facility] [address] [id number] [address] [place] [address], [place] [address] Jun, [facility] [address] [id number] [address] [place] [address], [place] [address] Jun, [facility] [address] [id number] [address] [place] [address], [place] [address] Jun, [facility] [address] [id number] [address] [place] [address], [place] [address] Jun, [facility] [address] [id number] [address] [place] [address], [place] [address] Jun, [facility] [address] [id number] [address] [place] [address], [place] [address] Jun, [facility] [address] [id number] [address] [place] [address], [place] [address] Jun, [facility] [address] [id number] [address] [place] [address], [place] [address] Jun, [facility] [address] [id number] [address] [place] [address], [place] [address] Jun, [facility] [address] [id number] [address] [place] [address], [place] [address] Jun, [facility] [address] [id number] [address] [place] [address], [place] [address] Jun, [facility] [address] [id number] [address] [place] [address], [place] [address] Jun, [facility] [address] [id number] [address] [place] [address], [place] [address] Jun, [facility] [address] [id number] [address] [place] [address], [place] [address] Jun, [facility] [address] [id number] [address] [place] [address], [place] [address] Jun, [facility] [address] [id number] [address] [place] [address], [place] [address] Jun, [facility] [address] [id number] [address] [place] [address], [place] [address] Jun, [facility] [address] [id number] [address] [place] [address], [place] [address] Jun, [facility] [address] [id number] [address] [place] [address], [place] [address] Jun, [facility] [address] [id number] [address] [place] [address], [place] [address] Jun, [facility] [address] [id number] [address] [place] [address], [place] [address] May, [facility] [address] [id number] [address] [place] [address], [place] [address] May, [facility] [address] [id number] [address] [place] [address], [place] [address] May, [facility] [address] [id number] [address] [place] [address], [place] [address] May, [facility] [address] [id number] [address] [place] [address], [place] [address] May, [facility] [address] [id number] [address] [place] [address], [place] [address] May, [facility] [address] [id number] [address] [place] [address], [place] [address] May, [facility] [address] [id number] [address] [place] [address], [place] [address] May, [facility] [address] [id number] [address] [place] [address], [place] [address] May, [facility] [address] [id number] [address] [place] [address], [place] [address] May, [facility] [address] [id number] [address] [place] [address], [place] [address] May, [facility] [address] [id number] [address] [place] [address], [place] [address] 18 May, 2014 [facility] [address] [id number] [address] [place] [address], [place] [address] 18 May, 2014 [facility] [address] [id number] [address] [place] [address], [place] [address] 17 May, 2014 [facility] [address] [id number] [address] [place] [address], [place] [address] 16 May, 2014 [facility] [address] [id number] [address] [place] [address], [place] [address] 16 May, 2014 [facility] [address] [id number] [address] [place] [address], [place] [address] 15 May, 2014 [facility] [address] [id number] [address] [place] [address], [place] [address] 15 May, 2014 [facility] [address] [id number] [address] [place] [address], [place] [address] May, [facility] [address] [id number] [address] [place] [address], [place] [address] May, [facility] [address] [id number] [address] [place] [address], [place] [address] May, [facility] [address] [id number] [address] [place] [address], [place] [address] May, [facility] [address] [id number] [address] [place] [address], [place] [address] May, [facility] [address] [id number] [address] [place] [address], [place] [address] May, [facility] [address] [id number] [address] [place] [address], [place] [address] May, [facility] [address] [id number] [address] [place] [address], [place] [address] May, [facility] [address] [id number] [address] [place] [address], [place] [address] May, [facility] [address] [id number] [address] [place] [address], [place] [address] May, [facility] [address] [id number] [address] [place] [address], [place] [address] May, [facility] [address] [id number] [address] [place] [address], [place] [address] May, [facility] [address] [id number] [address] [place] [address], [place] [address] May, [facility] [address] [id number] [address] [place] [address], [place] [address] May, [facility] [address] [id number] [address] [place] [address], [place] [address] May, [facility] [address] [id number] [address] [place] [address], [place] [address] May, [facility] [address] [id number] [address] [place] [address], [place] [address] Apr, [facility] [address] [id number] [address] [place] [address], [place] [address] Apr, [facility] [address] [id number] [address] [place] [address], [place] [address] Apr, [facility] [address] [id number] [address] [place] [address], [place] [address] Apr, [facility] [address] [id number] [address] [place] [address], [place] [address] Apr, [facility] [address] [id number] [address] [place] [address], [place] [address] Apr, [facility] [address] [id number] [address] [place] [address], [place] [address] Apr, [facility] [address] [id number] [address] [place] [address], [place] [address] Apr, [facility] [address] [id number] [address] [place] [address], [place] [address] Apr, [facility] [address] [id number] [address] [place] [address], [place] [address] Apr, [facility] [address] [id number] [address] [place] [address], [place] [address] Mar, [facility] [address] [id number] [address] [place] [address], [place] [address] Mar, [facility] [address] [id number] [address] [place] [address], [place] [address] Mar, [facility] [address] [id number] [address] [place] [address], [place] [address] 31 Mar, 2013 [facility] [address] [id number] [address] [place] [address], [place] [address] 30 Mar, 2013 [facility] [address] [id number] [address] [place] [address], [place] [address] 30 Mar, 2014 [facility] [address] [id number] [address] [place] [address], [place] [address] Mar, 2013 [facility] [address] [id number] [address] [place] [address], [place] [address] 17 Mar, 2013 [facility] [address] [id number] [address] [place] [address], [place] [address] 15 Mar, 2014 [facility] [address] [id number] [address] [place] [id number] 15 Mar, 2014 [facility] [address] [id number] [address] [place] [address], [place] [id number] 15 Mar, 2014 [facility] [address] [id number] [address] [place] [id number] Mar, [facility] [address] [id number] [address] [place] [address], [place] [address] Mar, [facility] [address] [id number] [address] [place] [id number] Mar, [facility] [address] [id number] [address] [place] [id number] Mar, [facility] [address] [id number] [address] [place] [id number] Mar, 2013 [facility] [address] [id number] [address] [place] [address], [place] [address] Mar, [facility] [address] [id number] [address] [place] [id number] Mar, [facility] [address] [id number] [address] [place] [id number] Mar, 2013 [facility] [address] [id number] [address] [place] [address], [place] [id number] 02 Mar, 2013 [facility] [address] [id number] [address] [place] [address], [place] [id number] 05 Sep, 2013 [facility] [address] [id number] [address] [place] [address], [place] [id number] 05 Sep, 2013 [facility] [address] [id number] [address] [place] [address], [place] [id number] 04 Sep, 2013 [facility] [address] [id number] [address] [place] [address], [place] [id number] 04 Sep, 2013 [facility] [address] [id number] [address] [place] [address], [place] [id number] 03 Feb, 2013 [facility] [address] [id number] [address] [place] [address], [place] [id number] Feb, 2013 [facility] [address] [id number] [address] [place] [address], [place] [id number] Feb, 2013 [facility] [address] [id number] [address] [place] [address], [place] [address] Feb, 2013 [facility] [address] [id number] [address] [place] [address], [place] [id number] Feb, 2013 [facility] [address] [id number] [address] [place] [address], [place] [address] Feb, 2013 [facility] [address] [id number] [address] [place] [address], [place] [id number] Jan, [facility] [address] [id number] [address] [place] [address], [place] [address] Jan, [facility] [address] [id number] [address] [place] [address], [place] [address] Jan, [facility] [address] [id number] [address] [place] [address], [place] [id number] Jan, [facility] [address] [id number] [address] [place] [address], [place] [address] Jan, [facility] [address] [id number] [address] [place] [address], [place] [address] Jan, [facility] [address] [id number] [address] [place] [address], [place] [address] Jan, [facility] [address] [id number] [address] [place] [address], [place] [address] Jan, [facility] [address] [id number] [address] [place] [address], [place] [id number] Jan, [facility] [address] [id number] [address] [place] [address], [place] [id number] Jan, [facility] [address] [id number] [address] [place] [address], [place] [id number] Jan, [facility] [address] [id number] [address] [place] [address], [place] [address] Jan, [facility] [address] [id number] [address] [place] [address], [place] [id number] Dec, [facility] [address] [id number] [address] [place] [address], [place] [address] Dec, [facility] [address] [id number] [address] [place] [address], [place] [address] Dec, [facility] [address] [address] [id number] [address] [place] [address], [place] [address] Dec, [facility] [address] [id number] [address] [place] [address], [place] [address] Dec, [facility] [address] [id number] [address] [place] [address], [place] [address] Dec, [facility] [address] [id number] [address] [place] [address], [place] [address] Dec, [facility] [address] [id number] [address] [place] [address], [place] [address] Dec, [facility] [address] [id number] [address] [place] [address], [place] [address] Dec, [facility] [address] [id number] [address] [place] [address], [place] [address] Dec, [facility] [address] [id number] [address] [place] [address], [place] [address] Dec, [facility] [address] [id number] [address] [place] [address], [place] [address] Dec, [facility] [address] [id number] [address] [place] [address], [place] [address] Nov, [facility] [address] [id number] [address] [place] [address], [place] [address] Nov, [facility] [address] [id number] [address] [place] [address], [place] [address] Nov, [facility] [address] [id number] [address] [place] [address], [place] [address] Nov, [facility] [address] [id number] [address] [place] [address], [place] [address] Nov, [facility] [address] [id number] [address] [place] [address], [place] [address] Nov, [facility] [address] [id number] [address] [place] [address], [place] [address] Nov, [facility] [address] [id number] [address] [place] [address], [place] [address] Nov, [facility] [address] [id number] [address] [place] [address] Nov, [facility] [address] [id number] [address] [place] [address], [place] [address] Nov, [facility] [address] [id number] [address] [place] [address], [place] [address] Nov, [facility] [address] [id number] [address] [place] [address], [place] [address] Nov, [facility] [address] [id number] [address] [place] [address], [place] [address] Nov, [facility] [address] [id number] [address] [place] [address], [place] [address] Nov, [facility] [address] [id number] [address] [place] [address], [place] [address] October, [facility] [address] [id number] [address] [place] [address], [place] [address] October, [facility] [address] [id number] [address] [place] [address], [place] [address] October, [facility] [address] [id number] [address] [place] [address], [place] [address] October, [facility] [address] [id number] [address] [place] [address], [place] [address] October, [facility] [address] [id number] [address] [place] [address], [place] [address] October, [facility] [address] [id number] [address] [place] [address], [place] [address] October, [facility] [address] [id number] [address] [place] [address], [place] [address] October, [facility] [address] [id number] [address] [place] [address], [place] [address] October, [facility] [address] [id number] [address] [place] [address], [place] [address] October, [facility] [address] [id number] [address] [place] [address], [place] [address] October, [facility] [address] [id number] [address] [place] [address], [place] [address] October, [facility] [address] [id number] [address] [place] [address], [place] [address] Sep, [facility] [address] [id number] [address] [place] [address], [place] [address] Sep, [facility] [address] [id number] [facility] [place] [address] Sep, [facility] [address] [id number] [address] [place] [address], [place] [address] Sep, [facility] [address] [id number] [address] [place] [address], [place] [address] Sep, [facility] [address] [id number] [address] [place] [address], [place] [address] Sep, [facility] [address] [id number] [address] [place] [address], [place] [address] Aug, [facility] [address] [id number] [address] [place] [address], [place] [address] Aug, [facility] [address] [id number] [address] [place] [address], [place] [address] Aug, [facility] [address] [id number] [address] [place] [address], [place] [address] Aug, [facility] [address] [id number] [address] [place] [address], [place] [address] Aug, [facility] [address] [id number] [address] [place] [address], [place] [address] Aug, [facility] [address] [id number] [address] [place] [address], [place] [address] Jul, [facility] [address] [id number] [address] [place] [address], [place] [address] Jul, [facility] [address] [id number] [address] [place] [address], [place] [address] Jul, [facility] [address] [id number] [address] [place] [address], [place] [address] Jul, [facility] [address] [id number] [address] [place] [address], [place] [address] Jul, [facility] [address] [id number] [address] [place] [address], [place] [address] 13 Jul, 2013 [facility] [address] [id number] [address] [place] [address], [place] [address] Jul, [facility] [address] [id number] [address] [place] [address], [place] [address] Jul, [facility] [address] [id number] [address] [place] [address], [place] [address] Jul, [facility] [address] [id number] [address] [place] [address], [place] [address] Jul, [facility] [address] [id number] [address] [place] [address], [place] [address] Jun, [facility] [address] [id number] [address] [place] [address], [place] [address] Jun, [facility] [address] [id number] [address] [place] [address], [place] [address] Jun, [facility] [address] [id number] [address] [place] [address], [place] [address] Jun, [facility] [address] [id number] [address] [place] [address], [place] [address] Jun, [facility] [address] [id number] [address] [place] [address], [place] [address] Jun, [facility] [address] [id number] [address] [place] [address], [place] [address] Jun, [facility] [address] [id number] [address] [place] [address], [place] [address] Jun, [facility] [address] [id number] [address] [place] [address], [place] [address] May, [facility] [address] [id number] [address] [place] [address], [place] [address] May, [facility] [address] [id number] [address] [place] [address] [address] May, [facility] [address] [id number] [address] [place] [address], [place] [address] May, [facility] [address] [id number] [address] [place] [address], [place] [address] May, [facility] [address] [id number] [address] [place] [address], [place] [address] May, [facility] [address] [id number] [address] [place] [address], [place] [address] May, [facility] [address] [id number] [address] [place] [address], [place] [address] May, [facility] [address] [id number] [address] [place] [address], [place] [address] Apr, [facility] [address] [id number] [address] [place] [address], [place] [address] Apr, [facility] [address] [id number] [address] [place] [address] Apr, [facility] [address] [id number] [address] [place] [address] Apr, [facility] [address] [id number] [address] [place] [address] Apr, [facility] [address] [id number] [address] [place] [address] Apr, [facility] [address] [id number] [address] [place] [address] Mar, [facility] [address] [id number] [address] [place] [address] Mar, [facility] [address] [id number] [address] [place] [address] Mar, [facility] [address] [id number] [address] [place] [address] Mar, [facility] [address] [id number] [address] [place] [address], [place] [address] Mar, [facility] [address] [id number] [address] [place] [address], [place] [address] Mar, [facility] [address] [id number] [address] [place] [address], [place] [address] Mar, [facility] [address] [id number] [address] [place] [address], [place] [address] 30 Feb, 2013 [facility] [address] [id number] [address] [place] [address], [place] [address] 30 Feb, 2013 [facility] [address] [id number] [address] [place] [address], [place] [address] 27 Feb, 2013 [facility] [address] [id number] [address] [place] [address], [place] [address] Feb, [facility] [address] [id number] [address] [place] [address], [place] [address] Feb, [facility] [address] [id number] [address] [place] [address], [place] [address] Feb, [facility] [address] [id number] [address] [place] [address], [place] [address] Jan, [facility] [address] [id number] [address] [place] [address], [place] [address] Jan, [facility] [address] [id number] [address] [place] [address], [place] [address] Jan, [facility] [address] [id number] [address] [place] [address], [place] [address] Jan, [facility] [address] [id number] [address] [place] [address], [place] [address] Jan, [facility] [address] [id number] [address] [place] [address], [place] [address] Jan, [facility] [address] [id number] [address] [place] [address], [place] [address] Jan, [facility] [address] [id number] [address] [place] [address], [place] [address] Jan, [facility] [address] [id number] [address] [place] [address], [place] [address] Jan, [facility] [address] [id number] [address] [place] [address], [place] [address] Dec, [facility] [address] [id number] [address] [place] [address], [place] [address] Dec, [facility] [address] [id number] [address] [place] [address], [place] [address] Dec, [facility] [address] [id number] [address] [place] [address], [place] [address] Dec, [facility] [address] [id number] [address] [place] [address], [place] [address] Dec, [facility] [address] [id number] [address] [place] [address], [place] [address] Dec, [facility] [address] [id number] [address] [place] [address], [place] [address] Dec, [facility] [address] [id number] [address] [place] [address], [place] [address] Dec, [facility] [address] [id number] [address] [place] [address], [place] [address] Dec, [facility] [address] [id number] [address] [place] [address], [place] [address] Dec, [facility] [address] [id number] [address] [place] [address], [place] [address] Dec, [facility] [address] [id number] [address] [place] [address], [place] [address] Dec, [facility] [address] [id number] [address] [place] [address], [place] [address] Dec, [facility] [address] [id number] [address] [place] [address], [place] [address] Nov, [facility] [address] [id number] [address] [place] [address], [place] [address] Nov, [facility] [address] [id number] [address] [place] [address], [place] [address] Nov, [facility] [address] [id number] [address] [place] [address], [place] [address] Nov, [facility] [address] [id number] [address] [place] [address], [place] [address] October, [facility] [address] [id number] [address] [place] [address], [place] [address] October, [facility] [address] [id number] [address] [place] [address], [place] [address] October, [facility] [address] [id number] [address] [place] [address], [place] [address] October, [facility] [address] [id number] [address] [place] [address], [place] [address] October, [facility] [address] [id number] [address] [place] [address], [place] [address] October, [facility] [address] [id number] [address] [place] [address], [place] [address] 30 Sep, 2012 [facility] [address] [id number] [address] [place] [address], [place] [address] 29 Sep, 2012 [facility] [address] [id number] [address] [place] [address], [place] [address] 27 Sep, 2012 [facility] [address] [id number] [address] [place] [address], [place] [address] 23 Sep, 2012 [facility] [address] [id number] [address] [place] [address], [place] [address] Sep, [facility] [address] [id number] [address] [place] [address], [place] [address] 16 Sep, 2012 [facility] [address] [id number] [facility] [place] [address] 12 Sep, 2012 [facility] [address] [id number] [address] [place] [address], [place] [address] Sep, [facility] [address] [id number] [address] [place] [address], [place] [address] Sep, [facility] [address] [id number] [address] [place] [address], [place] [address] Sep, [facility] [address] [id number] [address] [place] [address], [place] [address] Sep, [facility] [address] [id number] [address] [place] [address], [place] [address] Aug, [facility] [address] [id number] [address] [place] [address], [place] [address] Aug, [facility] [address] [id number] [address] [place] [address], [place] [address] 25 Aug, 2012 [facility] [address] [id number] [address] [place] [address], [place] [address] 21 Aug, 2012 [facility] [address] [id number] [address] [place] [address], [place] [address] 19 Aug, 2012 [facility] [address] [id number] [address] [place] [address], [place] [address] 18 Aug, 2012 [facility] [address] [id number] [address] [place] [address], [place] [address] 17 Aug, 2012 [facility] [address] [id number] [address] [place] [address], [place] [address] 15 Aug, 2012 [facility] [address] [id number] [address] [place] [address], [place] [address] 15 Aug, 2012 [facility] [address] [id number] [address] [place] [address], [place] [address] 11 Aug, 2012 [facility] [address] [id number] [address] [place] [address], [place] [address] Aug, [facility] [address] [id number] [address] [place] [address], [place] [address] Aug, [facility] [address] [id number] [address] [place] [address], [place] [address] Jul, [facility] [address] [id number] [address] [place] [address], [place] [address] Jul, [facility] [address] [id number] [address] [place] [address], [place] [address] Jul, [facility] [address] [id number] [address] [place] [address], [place] [address] Jul, [facility] [address] [id number] [address] [place] [address], [place] [address] Jul, [facility] [address] [id number] [address] [place] [address], [place] [address] Jul, [facility] [address] [id number] [address] [place] [address], [place] [address] Jul, [facility] [address] [id number] [address] [place] [address], [place] [address] Jul, [facility] [address] [id number] [address] [place] [address], [place] [address] Jul, [facility] [address] [id number] [address] [place] [address] Jul, [facility] [address] [id number] [address] [place] [address] May, [facility] [address] [id number] [place] [id number] May, [facility] [address] [id number] [address] [place] [address] May, [facility] [address] [id number] [address] [place] [address], [place] [address] 14 May, 2012 [facility] [address] [id number] [address] [place] [address], [place] [address] May, [facility] [address] [id number] [address] [place] [address], [place] [address] Apr, [facility] [address] [id number] [place] [id number] Apr, [facility] [address] [facility] [id number] [address] [place] [address], [place] [address] Apr, [facility] [address] [facility] [id number] [address] [place] [address], [place] [address] Mar, [facility] [address] [id number] [place] [id number] Mar, [facility] [address] [facility] [id number] [address] [place] [address], [place] [address] Mar, [facility] [address] [id number] [place] [id number] Feb, [facility] [address] [facility] [id number] [address] [place] [address], [place] [address] Feb, [facility] [address] [facility] [id number] [address] [place] [address], [place] [address] Feb, [facility] [address] [id number] [place] [id number] Feb, [facility] [address] [id number] [place] [id number] Feb, [facility] [address] [id number] [place] [id number] Jan, [facility] [address] [id number] [address] [place] [address], [place] [address] Jan, [facility] [address] [id number] [place] [id number] Jan, [facility] [address] [id number] [place] [id number] Jan, [facility] [address] [id number] [place] [id number] Jan, [facility] [address] [id number] [address] [place] [address], [place] [address] Jan, [facility] [address] [facility] [id number] [address] [place] [address], [place] [address] Jan, [facility] [address] [facility] [id number] [address] [place] [address], [place] [address] Aug, [facility] [address] [facility] [id number] [place] [id number] Aug, [facility] [address] [facility] [id number] [address] [place] [address], [place] [address] Jul, [facility] [address] [facility] [id number] [address] [place] [address], [place] [address] Jul, [facility] [address] [facility] [id number] [address] [place] [address], [place] [address] Jul, [facility] [address] [facility] [id number] [place] [id number] Jul, [facility] [address] [facility] [id number] [address] [place] [address], [place] [address] Jul, [facility] [address] [facility] [id number] [place] [id number] Jul, [facility] [address] [facility] [id number] [address] [place] [address], [place] [address] Jul, [facility] [address] [id number] [place] [id number] Jul, [facility] [address] [id number] [place] [id number] Jul, [facility] [address] [id number] [place] [id number] Jul, [facility] [address] [facility] [id number] [address] [place] [address], [place] [address] May, [facility] [address] [facility] [id number] [address] [place] [address], [place] [address] May, [facility] [address] [id number] [address] [place] [id number] May, [facility] [address] [id number] [address] [place] [id number] Apr, [facility] [address] [id number] [address] [place] [id number] Jan, [facility] [address] [id number] [address] [place] [id number] Jan, [facility] [address] [id number] [address] [place] [id number] Dec, [facility] [address] [id number] [address] [place] [id number] Dec, [facility] [address] [id number] [address] [place] [id number] 16 May, 2009 [facility] [address] [id number] [address] [place] [id number] Mar, [facility] [address] [id number] [address] [place] [id number] Mar, [facility] [address] [id number] [address] [place] [id number] Jan, IMMUNIZATIONS No Known Immunizations SOCIAL HISTORY [...]
--- OUTSIDE RECORDS SUMMARY | 2020-01-28 12:55 | XMS REPORT ---
Author Author Heydi ROBB [facility] Address [address] [place] [address] Care Team Providers Care Product Development Chemist Name Role Phone CEZAR JIMI Unavailable PROBLEMS Type Condition ICD9-CM Code JDG19-XD Code Onset Dates Condition S tatus SNOMED Code Problem Chronic pain syndrome G89.4 Active 851912173 Problem Sore throat J02.9 Active 97358266 3 Problem Choriocarcinoma C58 Active 1881 93983 Problem medical terminologist current use of anticoagulant Z79.01 Active 310715306 Problem History of venous thromboembolism V12.51 Active 026165176 Problem Cellulitis of unspecified part of limb L03.119 Active 976794089 Problem Gastroesophageal reflux disease without esophagitis K21.9 Active 937220908 Problem History of pulmonary embolism Z86.711 Active 972033236 Problem Pseudotumor cerebri G93.2 Active 95834289 Problem History of DVT (deep vein thrombosis) Z86.718 Active 211493703 ALLERGIES No Information ENCOUNTERS Encounter Location Date Diagnosis [place] [id number] [facility] [id number] [address] [place] [address] Apr, skilled nursing (current) use of 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 Z79.01 [facility] [address] [facility] [id number] [address] [place] [address] Apr, skilled nursing 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.01 [facility] [address] [facility] [id number] [address] [place] [address] Apr, Cellulitis of unspecified pa rt of limb L03.119 ; Allergic contact dermatitis due to adhesives L23.1 and Chronic pain syndrome G89.4 [facility] [address] [facility] [id number] [address] [place] [address] Apr, [place] [address] [place] [id number] [address] [place] [address] Apr, medical terminologist 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.01 ; Cellulitis of unspecified part of limb L03.119 ; Chronic pain syndrome G89.4 and Anxiety F41.9 [facility] [address] [place] [id number] [address] [place] [address] 16 Apr, 2015 [facility] [address] [place] [id number] [place] [address] Apr, [place] [address] [place] [id number] [place] [address] Mar, [place] [address] [address] Mar, [place] [address] [address] Mar, Sore throat J02.9 ; Gastroes ophageal reflux disease without esophagitis K21.9 ; Pseudotumor cerebri G93.2 ; Chronic pain syndrome G89.4 ; Choriocarcinoma C58 ; History of pulmonary embolism Z86.711 ; History of DVT (deep vein thrombosis) Z86.718 ; Anxiety F41.9 and Tachycardia R00.0 [place] [address] [address] Feb, Anxiety 300.00 and Chronic p ain 338.29 [place] [address] [place] [id number] [address] [place] [address] Feb, [place] [address] [place] [id number] [address] [place] [address] Feb, [place] [address] [address] Jan, medical terminologist current use of ant icoagulant therapy V58.61 and Dysuria 788.1 [place] [address] [place] [id number] [place] [address] Jan, Dysuria 788.1 [facility] [address] [place] [id number] [address] [place] [address] Jan, Anxiety 300.00 and Chronic p ain 338.29 [facility] [address] [place] [id number] [place] [address] Jan, [facility] [address] [address] Jan, [facility] [address] [address] Jan, [place] [address] [address] Dec, Weakness 780.79 [place] [address] [address] Dec, skilled nursing current use of ant icoagulant therapy V58.61 [place] [address] [address] Dec, Palpitations 785.1 ; Tremor 781.0 ; Weakness 780.79 ; skilled nursing current use of anticoagulant therapy V58.61 and Yeast vaginitis 112.1 [place] [address] [place] [id number] [address] [place] [address] Dec, [place] [address] [address] Dec, Cervicalgia 723.1 ; Tachycar yoseph 785.0 ; Pseudotumor cerebri 348.2 and History of venous thromboembolism V12.51 [place] [address] [address] Nov, [place] [address] [address] Nov, [place] [address] [address] Nov, Tachycardia 785.0 ; Pseudotu mor cerebri 348.2 ; Anxiety 300.00 and History of venous thromboembolism V12.51 [facility] [address] [id number] [address] [place] [address] Nov, [facility] [address] [id number] [address] [place] [address] 18 Nov, 2014 [facility] [address] [id number] [address] [place] [address] Nov, [facility] [address] [id number] [address] [place] [address] Nov, [facility] [address] [facility] [id number] [address] [place] [address] Nov, [facility] [address] [facility] [id number] [address] [place] [address] Nov, [facility] [address] [facility] [id number] [address] [place] [address] Nov, [facility] [address] [facility] [id number] [address] [place] [address] October, [facility] [address] [facility] [id number] [address] [place] [address] October, [facility] [address] [place] [id number] [address] [place] [address] October, Pain in thoracic spine 724.1 and Tachycardia 785.0 [facility] [address] [id number] [address] [place] [address] October, [facility] [address] [id number] [address] [place] [address] October, [facility] [address] [facility] [id number] [address] [place] [address] 14 Sep, 2014 [facility] [address] [facility] [id number] [address] [place] [address] Sep, [facility] [address] [id number] [facility] [place] [address] Aug, [facility] [address] [id number] [address] [place] [address], [place] [address] Aug, [facility] [address] [id number] [address] [place] [address], [place] [address] Aug, [facility] [address] [id number] [address] [place] [address], [place] [address] Aug, [facility] [address] [id number] [address] [place] [address], [place] [address] Aug, [facility] [address] [id number] [address] [place] [address], [place] [address] Aug, [facility] [address] [id number] [address] [place] [address], [place] [address] Aug, [facility] [address] [id number] [address] [place] [address], [place] [address] Aug, [facility] [address] [id number] [address] [place] [address], [place] [address] Aug, [facility] [address] [id number] [address] [place] [address], [place] [address] Aug, [facility] [address] [id number] [address] [place] [address], [place] [address] Aug, [facility] [address] [id number] [address] [place] [address], [place] [address] Aug, 2014 [facility] [address] [id number] [address] [place] [address], [place] [address] Jul, [facility] [address] [id number] [address] [place] [address], [place] [address] Jul, [facility] [address] [id number] [address] [place] [address], [place] [address] Jul, [facility] [address] [id number] [address] [place] [address], [place] [address] Jul, [facility] [address] [id number] [address] [place] [address], [place] [address] 23 Jul, 2014 [facility] [address] [id number] [address] [place] [address], [place] [address] 23 Jul, 2014 [facility] [address] [id number] [address] [place] [address], [place] [address] 23 Jul, 2014 [facility] [address] [id number] [address] [place] [address], [place] [address] 23 Jul, 2014 [facility] [address] [id number] [address] [place] [address], [place] [address] 20 Jul, 2014 [facility] [address] [id number] [address] [place] [address], [place] [address] 20 Jul, 2014 [facility] [address] [id number] [address] [place] [address], [place] [address] 19 Jul, 2014 [facility] [address] [id number] [address] [place] [address], [place] [address] 19 Jul, 2014 [facility] [address] [id number] [address] [place] [address], [place] [address] 17 Jul, 2014 [facility] [address] [id number] [address] [place] [address], [place] [address] 17 Jul, 2014 [facility] [address] [id number] [address] [place] [address], [place] [address] 16 Jul, 2014 [facility] [address] [id number] [address] [place] [address], [place] [address] 16 Jul, 2014 [facility] [address] [id number] [address] [place] [address], [place] [address] 16 Jul, 2014 [facility] [address] [id number] [address] [place] [address] 16 Jul, 2014 [facility] [address] [id number] [address] [place] [address] 13 Jul, 2014 [facility] [address] [id number] [address] [place] [address], [place] [address] Jul, [facility] [address] [id number] [address] [place] [address], [place] [address] Jul, [facility] [address] [id number] [address] [place] [address], [place] [address] Jul, 2014 [facility] [address] [id number] [address] [place] [address], [place] [address] Jul, 2014 [facility] [address] [id number] [address] [place] [address], [place] [address] Jul, [facility] [address] [id number] [address] [place] [address], [place] [address] Jul, [facility] [address] [id number] [address] [place] [address], [place] [address] Jul, [facility] [address] [id number] [address] [place] [address], [place] [address] Jul, [facility] [address] [id number] [address] [place] [address], [place] [address] Jul, [facility] [address] [id number] [address] [place] [address], [place] [address] Jul, [facility] [address] [id number] [address] [place] [address], [place] [address] Jul, [facility] [address] [id number] [address] [place] [address], [place] [address] Jun, [facility] [address] [id number] [address] [place] [address], [place] [address] Jun, [facility] [address] [id number] [address] [place] [address], [place] [address] Jun, [facility] [address] [id number] [address] [place] [address], [place] [address] Jun, [facility] [address] [id number] [address] [place] [address], [place] [address] Jun, [facility] [address] [id number] [address] [place] [address], [place] [address] Jun, [facility] [address] [id number] [address] [place] [address], [place] [address] Jun, [facility] [address] [id number] [address] [place] [address], [place] [address] Jun, [facility] [address] [id number] [address] [place] [address], [place] [address] Jun, [facility] [address] [id number] [address] [place] [address], [place] [address] Jun, [facility] [address] [id number] [address] [place] [address], [place] [address] Jun, [facility] [address] [id number] [address] [place] [address], [place] [address] Jun, [facility] [address] [id number] [address] [place] [address], [place] [address] Jun, [facility] [address] [id number] [address] [place] [address], [place] [address] Jun, [facility] [address] [id number] [address] [place] [address], [place] [address] Jun, [facility] [address] [id number] [address] [place] [address], [place] [address] Jun, [facility] [address] [id number] [address] [place] [address], [place] [address] Jun, [facility] [address] [id number] [address] [place] [address], [place] [address] Jun, [facility] [address] [id number] [address] [place] [address], [place] [address] Jun, [facility] [address] [id number] [address] [place] [address], [place] [address] Jun, [facility] [address] [id number] [address] [place] [address], [place] [address] May, [facility] [address] [id number] [address] [place] [address], [place] [address] May, [facility] [address] [id number] [address] [place] [address], [place] [address] May, [facility] [address] [id number] [address] [place] [address], [place] [address] May, [facility] [address] [id number] [address] [place] [address], [place] [address] May, [facility] [address] [id number] [address] [place] [address], [place] [address] May, [facility] [address] [id number] [address] [place] [address], [place] [address] May, [facility] [address] [id number] [address] [place] [address], [place] [address] May, [facility] [address] [id number] [address] [place] [address], [place] [address] May, [facility] [address] [id number] [address] [place] [address], [place] [address] May, [facility] [address] [id number] [address] [place] [address], [place] [address] May, [facility] [address] [id number] [address] [place] [address], [place] [address] 18 May, 2014 [facility] [address] [id number] [address] [place] [address], [place] [address] 18 May, 2014 [facility] [address] [id number] [address] [place] [address], [place] [address] 17 May, 2014 [facility] [address] [id number] [address] [place] [address], [place] [address] 16 May, 2014 [facility] [address] [id number] [address] [place] [address], [place] [address] 16 May, 2014 [facility] [address] [id number] [address] [place] [address], [place] [address] 15 May, 2014 [facility] [address] [id number] [address] [place] [address], [place] [address] 15 May, 2014 [facility] [address] [id number] [address] [place] [address], [place] [address] May, [facility] [address] [id number] [address] [place] [address], [place] [address] May, [facility] [address] [id number] [address] [place] [address], [place] [address] May, [facility] [address] [id number] [address] [place] [address], [place] [address] May, [facility] [address] [id number] [address] [place] [address], [place] [address] May, [facility] [address] [id number] [address] [place] [address], [place] [address] May, [facility] [address] [id number] [address] [place] [address], [place] [address] May, [facility] [address] [id number] [address] [place] [address], [place] [address] May, [facility] [address] [id number] [address] [place] [address], [place] [address] May, [facility] [address] [id number] [address] [place] [address], [place] [address] May, [facility] [address] [id number] [address] [place] [address], [place] [address] May, [facility] [address] [id number] [address] [place] [address], [place] [address] May, [facility] [address] [id number] [address] [place] [address], [place] [address] May, [facility] [address] [id number] [address] [place] [address], [place] [address] May, [facility] [address] [id number] [address] [place] [address], [place] [address] May, [facility] [address] [id number] [address] [place] [address], [place] [address] May, [facility] [address] [id number] [address] [place] [address], [place] [address] Apr, [facility] [address] [id number] [address] [place] [address], [place] [address] Apr, [facility] [address] [id number] [address] [place] [address], [place] [address] Apr, [facility] [address] [id number] [address] [place] [address], [place] [address] Apr, [facility] [address] [id number] [address] [place] [address], [place] [address] Apr, [facility] [address] [id number] [address] [place] [address], [place] [address] Apr, [facility] [address] [id number] [address] [place] [address], [place] [address] Apr, [facility] [address] [id number] [address] [place] [address], [place] [address] Apr, [facility] [address] [id number] [address] [place] [address], [place] [address] Apr, [facility] [address] [id number] [address] [place] [address], [place] [address] Apr, [facility] [address] [id number] [address] [place] [address], [place] [address] Mar, [facility] [address] [id number] [address] [place] [address], [place] [address] Mar, [facility] [address] [id number] [address] [place] [address] [address] Mar, [facility] [address] [id number] [address] [place] [address], [place] [address] 31 Mar, 2013 [facility] [address] [id number] [address] [place] [address], [place] [address] Mar, [facility] [address] [id number] [address] [place] [address], [place] [address] 30 Mar, 2014 [facility] [address] [id number] [address] [place] [address], [place] [address] Mar, [facility] [address] [id number] [address] [place] [address], [place] [address] Mar, [facility] [address] [id number] [address] [place] [address], [place] [address] Mar, [facility] [address] [id number] [address] [place] [address], [place] [address] Mar, [facility] [address] [id number] [address] [place] [address] Mar, [facility] [address] [id number] [address] [place] [id number] Mar, [facility] [address] [id number] [address] [place] [address] Mar, [facility] [address] [id number] [address] [place] [address] Mar, 2013 [facility] [address] [id number] [address] [place] [id number] Mar, 2013 [facility] [address] [id number] [address] [place] [id number] Mar, [facility] [address] [id number] [address] [place] [id number] Mar, [facility] [address] [id number] [address] [place] [id number] Mar, 2013 [facility] [address] [id number] [address] [place] [address], [place] [address] 02 Mar, 2013 [facility] [address] [id number] [address] [place] [address], [place] [address] 02 Mar, 2013 [facility] [address] [id number] [address] [place] [address], [place] [address] 05 Sep, 2013 [facility] [address] [id number] [address] [place] [address], [place] [address] 05 Sep, 2013 [facility] [address] [id number] [address] [place] [address], [place] [address] 04 Sep, 2013 [facility] [address] [id number] [address] [place] [address], [place] [address] 04 Sep, 2013 [facility] [address] [id number] [address] [place] [address], [place] [address] 03 Feb, 2013 [facility] [address] [id number] [address] [place] [address], [place] [address] 03 Feb, 2013 [facility] [address] [id number] [address] [place] [address], [place] [address] 02 Feb, 2013 [facility] [address] [id number] [address] [place] [address], [place] [address] Feb, 2013 [facility] [address] [id number] [address] [place] [address], [place] [address] 02 Feb, 2013 [facility] [address] [id number] [address] [place] [address], [place] [address] Feb, 2013 [facility] [address] [id number] [address] [place] [address], [place] [address] Jan, [facility] [address] [id number] [address] [place] [address], [place] [address] Jan, [facility] [address] [id number] [address] [place] [address], [place] [address] Jan, [facility] [address] [id number] [address] [place] [address], [place] [address] Jan, [facility] [address] [id number] [facility] [place] [address] Jan, [facility] [address] [id number] [address] [place] [address], [place] [address] Jan, [facility] [address] [id number] [address] [place] [address], [place] [address] Jan, [facility] [address] [id number] [address] [place] [address], [place] [address] Jan, [facility] [address] [id number] [address] [place] [address], [place] [address] Jan, [facility] [address] [id number] [address] [place] [address], [place] [address] Jan, [facility] [address] [id number] [address] [place] [address], [place] [address] Jan, [facility] [address] [id number] [address] [place] [address], [place] [address] Jan, [facility] [address] [id number] [address] [place] [address], [place] [address] Dec, [facility] [address] [id number] [address] [place] [address], [place] [address] Dec, [facility] [address] [id number] [address] [place] [address], [place] [address] Dec, [facility] [address] [id number] [address] [place] [address], [place] [address] Dec, [facility] [address] [id number] [address] [place] [address], [place] [address] Dec, [facility] [address] [id number] [address] [place] [address], [place] [address] Dec, [facility] [address] [id number] [address] [place] [address], [place] [address] Dec, [facility] [address] [id number] [address] [place] [address], [place] [address] Dec, [facility] [address] [id number] [facility] [place] [address] Dec, [facility] [address] [id number] [address] [place] [address], [place] [address] Dec, [facility] [address] [id number] [address] [place] [address], [place] [address] Dec, [facility] [address] [id number] [address] [place] [address], [place] [address] Dec, [facility] [address] [id number] [address] [place] [address], [place] [address] Nov, [facility] [address] [id number] [address] [place] [address], [place] [address] Nov, [facility] [address] [id number] [address] [place] [address], [place] [address] Nov, [facility] [address] [id number] [address] [place] [address], [place] [address] Nov, [facility] [address] [id number] [address] [place] [address], [place] [address] Nov, [facility] [address] [id number] [address] [place] [address], [place] [address] Nov, [facility] [address] [id number] [address] [place] [address], [place] [address] Nov, [facility] [address] [id number] [address] [place] [address], [place] [address] Nov, [facility] [address] [id number] [address] [place] [address], [place] [address] Nov, [facility] [address] [id number] [address] [place] [address], [place] [address] Nov, [facility] [address] [id number] [address] [place] [address], [place] [address] Nov, [facility] [address] [id number] [facility] [address] Nov, [facility] [address] [id number] [address] [place] [address], [place] [address] Nov, [facility] [address] [id number] [address] [place] [address], [place] [address] Nov, [facility] [address] [id number] [address] [place] [address], [place] [address] October, [facility] [address] [id number] [address] [place] [address], [place] [address] October, [facility] [address] [id number] [address] [place] [address], [place] [address] October, [facility] [address] [id number] [address] [place] [address], [place] [address] October, [facility] [address] [id number] [address] [place] [address], [place] [address] October, [facility] [address] [id number] [address] [place] [address], [place] [address] October, [facility] [address] [id number] [address] [place] [address], [place] [address] October, [facility] [address] [id number] [address] [place] [address], [place] [address] October, [facility] [address] [id number] [address] [place] [address], [place] [address] October, [facility] [address] [id number] [address] [place] [address], [place] [address] October, [facility] [address] [id number] [address] [place] [address], [place] [address] October, [facility] [address] [id number] [address] [place] [address], [place] [address] October, [facility] [address] [id number] [address] [place] [address], [place] [address] Sep, [facility] [address] [id number] [facility] [address] Sep, [facility] [address] [id number] [address] [place] [address], [place] [address] Sep, [facility] [address] [id number] [facility] [address] Sep, [facility] [address] [id number] [address] [place] [address], [place] [address] Sep, [facility] [address] [id number] [address] [place] [address], [place] [address] Sep, [facility] [address] [id number] [address] [place] [address], [place] [address] Aug, [facility] [address] [id number] [address] [place] [address], [place] [address] Aug, [facility] [address] [id number] [address] [place] [address], [place] [address] Aug, [facility] [address] [id number] [address] [place] [address], [place] [address] Aug, [facility] [address] [id number] [address] [place] [address], [place] [address] Aug, [facility] [address] [id number] [address] [place] [address], [place] [address] Aug, [facility] [address] [id number] [address] [place] [address], [place] [address] Jul, [facility] [address] [id number] [address] [place] [address], [place] [address] Jul, [facility] [address] [id number] [address] [place] [address], [place] [address] Jul, [facility] [address] [id number] [address] [place] [address], [place] [address] Jul, [facility] [address] [id number] [address] [place] [address], [place] [address] 13 Jul, 2013 [facility] [address] [id number] [address] [place] [address], [place] [address] Jul, [facility] [address] [id number] [address] [place] [address], [place] [address] Jul, [facility] [address] [id number] [address] [place] [address], [place] [address] Jul, [facility] [address] [id number] [address] [place] [address], [place] [address] Jul, [facility] [address] [id number] [address] [place] [address], [place] [address] Jul, [facility] [address] [id number] [address] [place] [address], [place] [address] Jun, [facility] [address] [id number] [address] [place] [address], [place] [address] Jun, [facility] [address] [id number] [address] [place] [address], [place] [address] Jun, [facility] [address] [id number] [address] [place] [address], [place] [address] Jun, [facility] [address] [id number] [address] [place] [address], [place] [address] Jun, [facility] [address] [id number] [address] [place] [address], [place] [address] Jun, [facility] [address] [id number] [address] [place] [address], [place] [address] Jun, [facility] [address] [id number] [address] [place] [address], [place] [address] Jun, [facility] [address] [id number] [address] [place] [address], [place] [address] May, [facility] [address] [id number] [address] [place] [address], [place] [address] May, [facility] [address] [id number] [address] [place] [address], [place] [address] May, [facility] [address] [id number] [address] [place] [address], [place] [address] May, [facility] [address] [id number] [address] [place] [address], [place] [address] May, [facility] [address] [id number] [address] [place] [address], [place] [address] May, [facility] [address] [id number] [address] [place] [address], [place] [address] May, [facility] [address] [id number] [address] [place] [address], [place] [address] May, [facility] [address] [id number] [address] [place] [address], [place] [address] Apr, [facility] [address] [id number] [address] [place] [address] Apr, [facility] [address] [id number] [address] [place] [address], [place] [address] Apr, [facility] [address] [id number] [address] [place] [address] Apr, [facility] [address] [id number] [address] [place] [address] Apr, [facility] [address] [id number] [address] [place] [address] Apr, [facility] [address] [id number] [address] [place] [address], [place] [address] Mar, [facility] [address] [id number] [address] [place] [address] Mar, [facility] [address] [id number] [address] [place] [address], [place] [address] Mar, [facility] [address] [id number] [address] [place] [address], [place] [address] Mar, [facility] [address] [id number] [address] [place] [address], [place] [address] Mar, [facility] [address] [id number] [address] [place] [address], [place] [address] Mar, [facility] [address] [id number] [address] [place] [address], [place] [address] Mar, [facility] [address] [id number] [address] [place] [address], [place] [address] 30 Feb, 2012 [facility] [address] [id number] [address] [place] [address], [place] [address] 30 Feb, 2013 [facility] [address] [id number] [address] [place] [address], [place] [address] 27 Feb, 2013 [facility] [address] [id number] [address] [place] [address], [place] [address] Feb, 2012 [facility] [address] [id number] [address] [place] [address], [place] [address] Feb, [facility] [address] [id number] [address] [place] [address], [place] [address] Feb, [facility] [address] [id number] [address] [place] [address], [place] [address] Jan, [facility] [address] [id number] [address] [place] [address], [place] [address] Jan, [facility] [address] [id number] [address] [place] [address], [place] [address] Jan, [facility] [address] [id number] [address] [place] [address], [place] [address] Jan, [facility] [address] [id number] [address] [place] [address], [place] [address] Jan, [facility] [address] [id number] [address] [place] [address], [place] [address] Jan, [facility] [address] [id number] [address] [place] [address], [place] [address] Jan, [facility] [address] [id number] [address] [place] [address], [place] [address] Jan, [facility] [address] [id number] [address] [place] [address], [place] [address] Jan, [facility] [address] [id number] [address] [place] [address], [place] [address] Dec, [facility] [address] [id number] [address] [place] [address], [place] [address] Dec, [facility] [address] [id number] [address] [place] [address], [place] [address] Dec, [facility] [address] [id number] [address] [place] [address], [place] [address] Dec, [facility] [address] [id number] [address] [place] [address], [place] [address] Dec, [facility] [address] [id number] [address] [place] [address], [place] [address] Dec, [facility] [address] [id number] [address] [place] [address], [place] [address] Dec, [facility] [address] [id number] [address] [place] [address], [place] [address] Dec, [facility] [address] [id number] [address] [place] [address], [place] [address] Dec, [facility] [address] [id number] [address] [place] [address], [place] [address] Dec, [facility] [address] [id number] [address] [place] [address], [place] [address] Dec, [facility] [address] [id number] [address] [place] [address], [place] [address] Dec, [facility] [address] [id number] [address] [place] [address], [place] [address] Dec, [facility] [address] [id number] [address] [place] [address], [place] [address] Nov, [facility] [address] [id number] [address] [place] [address], [place] [address] Nov, [facility] [address] [id number] [address] [place] [address], [place] [address] Nov, [facility] [address] [id number] [address] [place] [address], [place] [address] Nov, [facility] [address] [id number] [address] [place] [address], [place] [address] October, [facility] [address] [id number] [address] [place] [address], [place] [address] October, [facility] [address] [id number] [address] [place] [address], [place] [address] October, [facility] [address] [id number] [address] [place] [address], [place] [address] October, [facility] [address] [id number] [address] [place] [address], [place] [address] October, [facility] [address] [id number] [address] [place] [address], [place] [address] October, [facility] [address] [id number] [address] [place] [address], [place] [address] Sep, [facility] [address] [id number] [address] [place] [address], [place] [address] Sep, [facility] [address] [id number] [address] [place] [address], [place] [address] Sep, [facility] [address] [id number] [address] [place] [address], [place] [address] Sep, [facility] [address] [id number] [address] [place] [address], [place] [address] Sep, [facility] [address] [id number] [facility] [address] 16 Sep, 2012 [facility] [address] [id number] [address] [place] [address], [place] [address] 12 Sep, 2012 [facility] [address] [id number] [address] [place] [address], [place] [address] Sep, [facility] [address] [id number] [address] [place] [address], [place] [address] Sep, [facility] [address] [id number] [address] [place] [address], [place] [address] Sep, [facility] [address] [id number] [address] [place] [address], [place] [address] Sep, [facility] [address] [id number] [address] [place] [address], [place] [address] Aug, [facility] [address] [id number] [address] [place] [address], [place] [address] 25 Aug, 2012 [facility] [address] [id number] [address] [place] [address], [place] [address] 25 Aug, 2012 [facility] [address] [id number] [address] [place] [address], [place] [address] 21 Aug, 2012 [facility] [address] [id number] [address] [place] [address], [place] [address] 19 Aug, 2012 [facility] [address] [id number] [address] [place] [address], [place] [address] 18 Aug, 2012 [facility] [address] [id number] [address] [place] [address], [place] [address] 17 Aug, 2012 [facility] [address] [id number] [address] [place] [address], [place] [address] 15 Aug, 2012 [facility] [address] [id number] [address] [place] [address], [place] [address] 15 Aug, 2012 [facility] [address] [id number] [address] [place] [address], [place] [address] Aug, [facility] [address] [id number] [address] [place] [address], [place] [address] Aug, [facility] [address] [id number] [address] [place] [address], [place] [address] Aug, [facility] [address] [id number] [address] [place] [address], [place] [address] Jul, [facility] [address] [id number] [address] [place] [address], [place] [address] Jul, [facility] [address] [id number] [address] [place] [address], [place] [address] Jul, [facility] [address] [id number] [address] [place] [address], [place] [address] Jul, [facility] [address] [id number] [address] [place] [address], [place] [address] Jul, [facility] [address] [id number] [address] [place] [address], [place] [address] Jul, [facility] [address] [id number] [address] [place] [address], [place] [address] Jul, [facility] [address] [id number] [address] [place] [address], [place] [address] Jul, [facility] [address] [id number] [address] [place] [address], [place] [address] Jul, [facility] [address] [id number] [address] [place] [address], [place] [address] Jul, [facility] [address] [id number] [address] [place] [address], [place] [address] May, [facility] [address] [id number] [place] [id number] May, [facility] [address] [id number] [address] [place] [address], [place] [address] May, [facility] [address] [id number] [address] [place] [address] May, [facility] [address] [facility] [id number] [address] [place] [address] May, [facility] [address] [facility] [id number] [address] [place] [address] Apr, [facility] [place] [address] [id number] [place] [id number] Apr, [facility] [address] [facility] [id number] [address] [place] [address] Apr, [facility] [address] [facility] [id number] [address] [place] [address] Mar, [facility] [place] [address] [id number] [place] [id number] Mar, [facility] [address] [facility] [id number] [address] [place] [address] Mar, [facility] [place] [address] [id number] [place] [id number] Feb, [facility] [address] [facility] [id number] [address] [place] [address] Feb, [facility] [address] [facility] [id number] [address] [place] [address] Feb, [facility] [place] [address] [id number] [place] [id number] Feb, [facility] [place] [address] [id number] [place] [id number] Feb, [facility] [address] [id number] [place] [id number] Jan, [facility] [address] [id number] [address] [place] [address], [place] [address] Jan, [facility] [place] [address] [id number] [place] [id number] Jan, [facility] [address] [id number] [place] [id number] Jan, [facility] [address] [id number] [place] [id number] Jan, [facility] [address] [facility] [id number] [address] [place] [address], [place] [address] Jan, [facility] [address] [facility] [id number] [address] [place] [address], [place] [address] Jan, [facility] [address] [facility] [id number] [address] [place] [address], [place] [address] Aug, [facility] [address] [id number] [place] [id number] Aug, [facility] [address] [facility] [id number] [address] [place] [address], [place] [address] Jul, [facility] [address] [facility] [id number] [address] [place] [address], [place] [address] Jul, [facility] [address] [facility] [id number] [address] [place] [address], [place] [address] Jul, [facility] [address] [id number] [place] [id number] Jul, [facility] [address] [facility] [id number] [address] [place] [address], [place] [address] Jul, [facility] [address] [id number] [place] [id number] Jul, [facility] [address] [facility] [id number] [address] [place] [address], [place] [address] Jul, [facility] [address] [id number] [place] [id number] Jul, [facility] [address] [id number] [place] [id number] Jul, [facility] [address] [id number] [place] [id number] Jul, [facility] [address] [facility] [id number] [address] [place] [address], [place] [address] May, [facility] [address] [id number] [address] [place] [id number] May, [facility] [address] [id number] [address] [place] [id number] May, [facility] [address] [id number] [address] [place] [id number] Apr, [facility] [address] [id number] [address] [place] [phone] Jan, [facility] [address] [id number] [address] [place] [phone] Jan, [facility] [address] [id number] [address] [place] [id number] Dec, [facility] [address] [id number] [address] [place] [id number] Dec, [facility] [address] [id number] [address] [place] [phone] May, [facility] [address] [id number] [address] [place] [id number] Mar, [facility] [address] [id number] [address] [place] [id number] Mar, [facility] [address] [id number] [address] [place] [phone] Jan, IMMUNIZATIONS No Known Immunizations SOCIAL HISTORY Never Assessed REASON FOR VISIT PLAN OF CARE VITAL SIGNS Height 63 in 2014-01-03 Weight 195.25 lbs 2014-01-03 Temperature 98.2 degrees Fahrenheit 2014-01-03 Heart Rate 80 bpm 2014-01-03 Respiratory Rate 18 2014-01-03 Blood pressure systolic 132 mmHg 2014-01-03 Blood pressure diastolic 90 mmHg 2014-01-03 MEDICATIONS Unknown Medications RESULTS No Results PROCEDURES [...]
--- OUTSIDE RECORDS SUMMARY | 2020-01-28 12:55 | XMS REPORT ---
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 Active 844386561 Problem History of venous thromboembolism V12.51 Active 393440150 Problem Cellulitis of unspecified part of limb L03.119 Active 739061372 Problem Gastroesophageal reflux disease without esophagitis K21.9 Active 451964755 Problem History of pulmonary embolism Z86.711 Active 157456758 Problem Pseudotumor cerebri G93.2 Active 43724249 Problem History of DVT (deep vein thrombosis) Z86.718 Active 691595571 ALLERGIES No Information ENCOUNTERS Encounter Location Date Diagnosis [place] [id number] [facility] [id number] [address] [place] [id number] Apr, nursing home (current) use of 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 Z79.01 [facility] [address] [facility] [id number] [address] [place] [phone] Apr, nursing home 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.01 [facility] [address] [facility] [id number] [address] [place] [address] Apr, Cellulitis of unspecified pa rt of limb L03.119 ; Allergic contact dermatitis due to adhesives L23.1 and Chronic pain syndrome G89.4 [facility] [address] [facility] [id number] [address] [place] [address] Apr, [place] [address] [place] [id number] [address] [place] [address] Apr, 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 ; Cellulitis of unspecified part of limb L03.119 ; Chronic pain syndrome G89.4 and Anxiety F41.9 [facility] [address] [place] [id number] [address] [place] [phone] 16 Apr, 2015 [facility] [address] [place] [id number] [place] [phone] Apr, [place] [address] [place] [id number] [place] [phone] Mar, [place] [address] [address] Mar, [place] [address] [address] Mar, Sore throat J02.9 ; Gastroes ophageal reflux disease without esophagitis K21.9 ; Pseudotumor cerebri G93.2 ; Chronic pain syndrome G89.4 ; Choriocarcinoma C58 ; History of pulmonary embolism Z86.711 ; History of DVT (deep vein thrombosis) Z86.718 ; Anxiety F41.9 and Tachycardia R00.0 [place] [address] [address] Feb, Anxiety 300.00 and Chronic p ain 338.29 [place] [address] [place] [id number] [address] [place] [phone] Feb, [place] [address] [place] [id number] [address] [place] [address] Feb, [place] [address] [address] Jan, 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 V58.61 and Dysuria 788.1 [place] [address] [place] [id number] [place] [address] Jan, Dysuria 788.1 [facility] [address] [place] [id number] [address] [place] [phone] Jan, Anxiety 300.00 and Chronic p ain 338.29 [facility] [address] [place] [id number] [place] [address] Jan, [facility] [address] [address] Jan, [facility] [address] [address] Jan, [place] [address] [address] Dec, Weakness 780.79 [place] [address] [address] Dec, nursing home current use of ant icoagulant therapy V58.61 [place] [address] [address] Dec, Palpitations 785.1 ; Tremor 781.0 ; Weakness 780.79 ; nursing home current use of anticoagulant therapy V58.61 and Yeast vaginitis 112.1 [place] [address] [place] [id number] [address] [place] [phone] Dec, [place] [address] [address] Dec, Cervicalgia 723.1 ; Tachycar yoseph 785.0 ; Pseudotumor cerebri 348.2 and History of venous thromboembolism V12.51 [place] [address] [address] Nov, [place] [address] [address] Nov, [place] [address] [address] Nov, Tachycardia 785.0 ; Pseudotu mor cerebri 348.2 ; Anxiety 300.00 and History of venous thromboembolism V12.51 [facility] [address] [id number] [address] [place] [address] Nov, [facility] [address] [id number] [address] [place] [phone] 18 Nov, 2014 [facility] [address] [id number] [address] [place] [address] Nov, [facility] [address] [id number] [address] [place] [phone] Nov, [facility] [address] [facility] [id number] [address] [place] [phone] Nov, [facility] [address] [facility] [id number] [address] [place] [phone] Nov, [facility] [address] [facility] [id number] [address] [place] [phone] Nov, [facility] [address] [facility] [id number] [address] [place] [phone] October, [facility] [address] [facility] [id number] [address] [place] [address] October, [facility] [address] [place] [id number] [address] [place] [address] October, Pain in thoracic spine 724.1 and Tachycardia 785.0 [facility] [address] [id number] [address] [place] [phone] October, [facility] [address] [id number] [address] [place] [id number] October, [facility] [address] [facility] [id number] [address] [place] [phone] 14 Sep, 2014 [facility] [address] [facility] [id number] [address] [place] [phone] Sep, [facility] [address] [id number] [facility] [place] [address] Aug, [facility] [address] [id number] [address] [place] [address], [place] [address] Aug, [facility] [address] [id number] [address] [place] [address], [place] [address] Aug, [facility] [address] [id number] [address] [place] [address], [place] [address] Aug, [facility] [address] [id number] [address] [place] [address], [place] [address] Aug, [facility] [address] [id number] [address] [place] [address], [place] [address] Aug, [facility] [address] [id number] [address] [place] [address], [place] [address] Aug, [facility] [address] [id number] [address] [place] [address], [place] [address] Aug, [facility] [address] [id number] [address] [place] [address], [place] [address] Aug, [facility] [address] [id number] [address] [place] [address], [place] [address] Aug, [facility] [address] [id number] [address] [place] [address], [place] [address] Aug, [facility] [address] [id number] [address] [place] [address], [place] [address] Aug, 2014 [facility] [address] [id number] [address] [place] [address], [place] [address] Jul, [facility] [address] [id number] [address] [place] [address], [place] [address] Jul, [facility] [address] [id number] [address] [place] [address], [place] [address] Jul, [facility] [address] [id number] [address] [place] [address], [place] [address] Jul, [facility] [address] [id number] [address] [place] [address], [place] [address] 23 Jul, 2014 [facility] [address] [id number] [address] [place] [address], [place] [address] 23 Jul, 2014 [facility] [address] [id number] [address] [place] [address], [place] [address] 23 Jul, 2014 [facility] [address] [id number] [address] [place] [address], [place] [address] 23 Jul, 2014 [facility] [address] [id number] [address] [place] [address], [place] [address] 20 Jul, 2014 [facility] [address] [id number] [address] [place] [address], [place] [address] 20 Jul, 2014 [facility] [address] [id number] [address] [place] [address], [place] [address] 19 Jul, 2014 [facility] [address] [id number] [address] [place] [address], [place] [address] 19 Jul, 2014 [facility] [address] [id number] [address] [place] [address], [place] [address] 17 Jul, 2014 [facility] [address] [id number] [address] [place] [address], [place] [address] 17 Jul, 2014 [facility] [address] [id number] [address] [place] [address], [place] [address] 16 Jul, 2014 [facility] [address] [id number] [address] [place] [address], [place] [address] 16 Jul, 2014 [facility] [address] [id number] [address] [place] [address], [place] [address] 16 Jul, 2014 [facility] [address] [id number] [address] [place] [phone] 16 Jul, 2014 [facility] [address] [id number] [address] [place] [phone] 13 Jul, 2014 [facility] [address] [id number] [address] [place] [address], [place] [address] Jul, [facility] [address] [id number] [address] [place] [address], [place] [address] Jul, [facility] [address] [id number] [address] [place] [address], [place] [address] Jul, 2014 [facility] [address] [id number] [address] [place] [address], [place] [address] Jul, 2014 [facility] [address] [id number] [address] [place] [address], [place] [address] Jul, [facility] [address] [id number] [address] [place] [address], [place] [address] Jul, [facility] [address] [id number] [address] [place] [address], [place] [address] Jul, [facility] [address] [id number] [address] [place] [address], [place] [address] Jul, [facility] [address] [id number] [address] [place] [address], [place] [address] Jul, [facility] [address] [id number] [address] [place] [address], [place] [address] Jul, [facility] [address] [id number] [address] [place] [address], [place] [address] Jul, [facility] [address] [id number] [address] [place] [address], [place] [address] Jun, [facility] [address] [id number] [address] [place] [address], [place] [address] Jun, [facility] [address] [id number] [address] [place] [address], [place] [address] Jun, [facility] [address] [id number] [address] [place] [address], [place] [address] Jun, [facility] [address] [id number] [address] [place] [address], [place] [address] Jun, [facility] [address] [id number] [address] [place] [address], [place] [address] Jun, [facility] [address] [id number] [address] [place] [address], [place] [address] Jun, [facility] [address] [id number] [address] [place] [address], [place] [address] Jun, [facility] [address] [id number] [address] [place] [address], [place] [address] Jun, [facility] [address] [id number] [address] [place] [address], [place] [address] Jun, [facility] [address] [id number] [address] [place] [address], [place] [address] Jun, [facility] [address] [id number] [address] [place] [address], [place] [address] Jun, [facility] [address] [id number] [address] [place] [address], [place] [address] Jun, [facility] [address] [id number] [address] [place] [address], [place] [address] Jun, [facility] [address] [id number] [address] [place] [address], [place] [address] Jun, [facility] [address] [id number] [address] [place] [address], [place] [address] Jun, [facility] [address] [id number] [address] [place] [address], [place] [address] Jun, [facility] [address] [id number] [address] [place] [address], [place] [address] Jun, [facility] [address] [id number] [address] [place] [address], [place] [address] Jun, [facility] [address] [id number] [address] [place] [address], [place] [address] Jun, [facility] [address] [id number] [address] [place] [address], [place] [address] May, [facility] [address] [id number] [address] [place] [address], [place] [address] May, [facility] [address] [id number] [address] [place] [address], [place] [address] May, [facility] [address] [id number] [address] [place] [address], [place] [address] May, [facility] [address] [id number] [address] [place] [address], [place] [address] May, [facility] [address] [id number] [address] [place] [address], [place] [address] May, [facility] [address] [id number] [address] [place] [address], [place] [address] May, [facility] [address] [id number] [address] [place] [address], [place] [address] May, [facility] [address] [id number] [address] [place] [address], [place] [address] May, [facility] [address] [id number] [address] [place] [address], [place] [address] May, [facility] [address] [id number] [address] [place] [address], [place] [address] May, [facility] [address] [id number] [address] [place] [address], [place] [address] 18 May, 2014 [facility] [address] [id number] [address] [place] [address], [place] [address] 18 May, 2014 [facility] [address] [id number] [address] [place] [address], [place] [address] 17 May, 2014 [facility] [address] [id number] [address] [place] [address], [place] [address] 16 May, 2014 [facility] [address] [id number] [address] [place] [address], [place] [address] 16 May, 2014 [facility] [address] [id number] [address] [place] [address], [place] [address] 15 May, 2014 [facility] [address] [id number] [address] [place] [address], [place] [address] 15 May, 2014 [facility] [address] [id number] [address] [place] [address], [place] [address] May, [facility] [address] [id number] [address] [place] [address], [place] [address] May, [facility] [address] [id number] [address] [place] [address], [place] [address] May, [facility] [address] [id number] [address] [place] [address], [place] [address] May, [facility] [address] [id number] [address] [place] [address], [place] [address] May, [facility] [address] [id number] [address] [place] [address], [place] [address] May, [facility] [address] [id number] [address] [place] [address], [place] [address] May, [facility] [address] [id number] [address] [place] [address], [place] [address] May, [facility] [address] [id number] [address] [place] [address], [place] [address] May, [facility] [address] [id number] [address] [place] [address], [place] [address] May, [facility] [address] [id number] [address] [place] [address], [place] [address] May, [facility] [address] [id number] [address] [place] [address], [place] [address] May, [facility] [address] [id number] [address] [place] [address], [place] [address] May, [facility] [address] [id number] [address] [place] [address], [place] [address] May, [facility] [address] [id number] [address] [place] [address], [place] [address] May, [facility] [address] [id number] [address] [place] [address], [place] [address] May, [facility] [address] [id number] [address] [place] [address], [place] [address] Apr, [facility] [address] [id number] [address] [place] [address], [place] [address] Apr, [facility] [address] [id number] [address] [place] [address], [place] [address] Apr, [facility] [address] [id number] [address] [place] [address], [place] [address] Apr, [facility] [address] [id number] [address] [place] [address], [place] [address] Apr, [facility] [address] [id number] [address] [place] [address], [place] [address] Apr, [facility] [address] [id number] [address] [place] [address], [place] [address] Apr, [facility] [address] [id number] [address] [place] [address], [place] [address] Apr, [facility] [address] [id number] [address] [place] [address], [place] [address] Apr, [facility] [address] [id number] [address] [place] [address], [place] [address] Apr, [facility] [address] [id number] [address] [place] [address], [place] [address] Mar, [facility] [address] [id number] [address] [place] [address], [place] [address] Mar, [facility] [address] [id number] [address] [place] [address] [address] Mar, [facility] [address] [id number] [address] [place] [address], [place] [address] 31 Mar, 2013 [facility] [address] [id number] [address] [place] [address], [place] [address] Mar, [facility] [address] [id number] [address] [place] [address], [place] [address] 30 Mar, 2014 [facility] [address] [id number] [address] [place] [address], [place] [address] Mar, [facility] [address] [id number] [address] [place] [address], [place] [address] Mar, [facility] [address] [id number] [address] [place] [address], [place] [id number] Mar, [facility] [address] [id number] [address] [place] [address], [place] [id number] Mar, [facility] [address] [id number] [address] [place] [id number] Mar, [facility] [address] [id number] [address] [place] [id number] Mar, [facility] [address] [id number] [address] [place] [id number] Mar, [facility] [address] [id number] [address] [place] [id number] Mar, 2013 [facility] [address] [id number] [address] [place] [id number] Mar, 2013 [facility] [address] [id number] [address] [place] [id number] Mar, [facility] [address] [id number] [address] [place] [id number] Mar, [facility] [address] [id number] [address] [place] [id number] Mar, 2013 [facility] [address] [id number] [address] [place] [address], [place] [id number] 02 Mar, 2013 [facility] [address] [id number] [address] [place] [address], [place] [id number] 02 Mar, 2013 [facility] [address] [id number] [address] [place] [address], [place] [id number] 05 Sep, 2013 [facility] [address] [id number] [address] [place] [address], [place] [id number] 05 Sep, 2013 [facility] [address] [id number] [address] [place] [address], [place] [id number] 04 Sep, 2013 [facility] [address] [id number] [address] [place] [address], [place] [id number] 04 Sep, 2013 [facility] [address] [id number] [address] [place] [address], [place] [id number] 03 Feb, 2013 [facility] [address] [id number] [address] [place] [address], [place] [id number] 03 Feb, 2013 [facility] [address] [id number] [address] [place] [address], [place] [id number] 02 Feb, 2013 [facility] [address] [id number] [address] [place] [address], [place] [id number] Feb, 2013 [facility] [address] [id number] [address] [place] [address], [place] [id number] 02 Feb, 2013 [facility] [address] [id number] [address] [place] [address], [place] [id number] Feb, 2013 [facility] [address] [id number] [address] [place] [address], [place] [id number] Jan, [facility] [address] [id number] [address] [place] [address], [place] [id number] Jan, [facility] [address] [id number] [address] [place] [address], [place] [id number] Jan, [facility] [address] [id number] [address] [place] [address], [place] [id number] Jan, [facility] [address] [id number] [facility] [place] [id number] Jan, [facility] [address] [id number] [address] [place] [address], [place] [id number] Jan, [facility] [address] [id number] [address] [place] [address], [place] [id number] Jan, [facility] [address] [id number] [address] [place] [address], [place] [id number] Jan, [facility] [address] [id number] [address] [place] [address], [place] [address] Jan, [facility] [address] [id number] [address] [place] [address], [place] [id number] Jan, [facility] [address] [id number] [address] [place] [address], [place] [id number] Jan, [facility] [address] [id number] [address] [place] [address], [place] [id number] Jan, [facility] [address] [id number] [address] [place] [address], [place] [id number] Dec, [facility] [address] [id number] [address] [place] [address], [place] [id number] Dec, [facility] [address] [id number] [address] [place] [address], [place] [id number] Dec, [facility] [address] [id number] [address] [place] [address], [place] [id number] Dec, [facility] [address] [id number] [address] [place] [address], [place] [id number] Dec, [facility] [address] [id number] [address] [place] [address], [place] [id number] Dec, [facility] [facility] [address] [id number] [address] [place] [address], [place] [address] Dec, [facility] [address] [id number] [address] [place] [address], [place] [address] Dec, [facility] [address] [id number] [facility] [place] [address] Dec, [facility] [address] [id number] [address] [place] [address], [place] [address] Dec, [facility] [address] [id number] [address] [place] [address], [place] [address] Dec, [facility] [address] [id number] [address] [place] [address], [place] [address] Dec, [facility] [address] [id number] [address] [place] [address], [place] [address] Nov, [facility] [address] [id number] [address] [place] [address], [place] [address] Nov, [facility] [address] [id number] [address] [place] [address], [place] [address] Nov, [facility] [address] [id number] [address] [place] [address], [place] [address] Nov, [facility] [address] [id number] [address] [place] [address], [place] [address] Nov, [facility] [address] [id number] [address] [place] [address], [place] [address] Nov, [facility] [address] [id number] [address] [place] [address], [place] [address] Nov, [facility] [address] [id number] [address] [place] [address], [place] [address] Nov, [facility] [address] [id number] [address] [place] [address], [place] [address] Nov, [facility] [address] [id number] [address] [place] [address], [place] [address] Nov, [facility] [address] [id number] [address] [place] [address], [place] [address] Nov, [facility] [address] [id number] [facility] [place] [address] Nov, [facility] [address] [id number] [address] [place] [address], [place] [address] Nov, [facility] [address] [id number] [address] [place] [address], [place] [address] Nov, [facility] [address] [id number] [address] [place] [address], [place] [address] October, [facility] [address] [id number] [address] [place] [address], [place] [address] October, [facility] [address] [id number] [address] [place] [address], [place] [address] October, [facility] [address] [id number] [address] [place] [address], [place] [address] October, [facility] [address] [id number] [address] [place] [address], [place] [address] October, [facility] [address] [id number] [address] [place] [address], [place] [address] October, [facility] [address] [id number] [address] [place] [address], [place] [address] October, [facility] [address] [id number] [address] [place] [address], [place] [address] October, [facility] [address] [id number] [address] [place] [address], [place] [address] October, [facility] [address] [id number] [address] [place] [address], [place] [address] October, [facility] [address] [id number] [address] [place] [address], [place] [address] October, [facility] [address] [id number] [address] [place] [address], [place] [address] October, [facility] [address] [id number] [address] [place] [address], [place] [address] Sep, [facility] [address] [id number] [facility] [address] Sep, [facility] [address] [id number] [address] [place] [address], [place] [address] Sep, [facility] [address] [id number] [facility] [place] [address] Sep, [facility] [address] [id number] [address] [place] [address], [place] [address] Sep, [facility] [address] [id number] [address] [place] [address], [place] [address] Sep, [facility] [address] [id number] [address] [place] [address], [place] [address] Aug, [facility] [address] [id number] [address] [place] [address], [place] [address] Aug, [facility] [address] [id number] [address] [place] [address], [place] [address] Aug, [facility] [address] [id number] [address] [place] [address], [place] [address] Aug, [facility] [address] [id number] [address] [place] [address], [place] [address] Aug, [facility] [address] [id number] [address] [place] [address], [place] [address] Aug, [facility] [address] [id number] [address] [place] [address], [place] [address] Jul, [facility] [address] [id number] [address] [place] [address], [place] [address] Jul, [facility] [address] [id number] [address] [place] [address], [place] [address] Jul, [facility] [address] [id number] [address] [place] [address], [place] [address] Jul, [facility] [address] [id number] [address] [place] [address], [place] [address] 13 Jul, 2013 [facility] [address] [id number] [address] [place] [address], [place] [address] Jul, [facility] [address] [id number] [address] [place] [address], [place] [address] Jul, [facility] [address] [id number] [address] [place] [address], [place] [address] Jul, [facility] [address] [id number] [address] [place] [address], [place] [address] Jul, [facility] [address] [id number] [address] [place] [address], [place] [address] Jul, [facility] [address] [id number] [address] [place] [address], [place] [address] Jun, [facility] [address] [id number] [address] [place] [address], [place] [address] Jun, [facility] [address] [id number] [address] [place] [address], [place] [address] Jun, [facility] [address] [id number] [address] [place] [address], [place] [address] Jun, [facility] [address] [id number] [address] [place] [address], [place] [address] Jun, [facility] [address] [id number] [address] [place] [address], [place] [address] Jun, [facility] [address] [id number] [address] [place] [address], [place] [address] Jun, [facility] [address] [id number] [address] [place] [address], [place] [address] Jun, [facility] [address] [id number] [address] [place] [address], [place] [address] May, [facility] [address] [id number] [address] [place] [address], [place] [address] May, [facility] [address] [id number] [address] [place] [address], [place] [address] May, [facility] [address] [id number] [address] [place] [address], [place] [address] May, [facility] [address] [id number] [address] [place] [address], [place] [address] May, [facility] [address] [id number] [address] [place] [address], [place] [address] May, [facility] [address] [id number] [address] [place] [address], [place] [address] May, [facility] [address] [id number] [address] [place] [address], [place] [address] May, [facility] [address] [id number] [address] [place] [address], [place] [address] Apr, [facility] [address] [id number] [address] [place] [address] Apr, [facility] [address] [id number] [address] [place] [address], [place] [address] Apr, [facility] [address] [id number] [address] [place] [address] Apr, [facility] [address] [id number] [address] [place] [address] Apr, [facility] [address] [id number] [address] [place] [address] Apr, [facility] [address] [id number] [address] [place] [address], [place] [address] Mar, [facility] [address] [id number] [address] [place] [address] Mar, [facility] [address] [id number] [address] [place] [address], [place] [address] Mar, [facility] [address] [id number] [address] [place] [address], [place] [address] Mar, [facility] [address] [id number] [address] [place] [address], [place] [address] Mar, [facility] [address] [id number] [address] [place] [address], [place] [address] Mar, [facility] [address] [id number] [address] [place] [address], [place] [address] Mar, [facility] [address] [id number] [address] [place] [address], [place] [address] 30 Feb, 2012 [facility] [address] [id number] [address] [place] [address], [place] [address] 30 Feb, 2013 [facility] [address] [id number] [address] [place] [address], [place] [address] 27 Feb, 2013 [facility] [address] [id number] [address] [place] [address], [place] [address] Feb, 2012 [facility] [address] [id number] [address] [place] [address], [place] [address] Feb, [facility] [address] [id number] [address] [place] [address], [place] [address] Feb, [facility] [address] [id number] [address] [place] [address], [place] [address] Jan, [facility] [address] [id number] [address] [place] [address], [place] [address] Jan, [facility] [address] [id number] [address] [place] [address], [place] [address] Jan, [facility] [address] [id number] [address] [place] [address], [place] [address] Jan, [facility] [address] [id number] [address] [place] [address], [place] [address] Jan, [facility] [address] [id number] [address] [place] [address], [place] [address] Jan, [facility] [address] [id number] [address] [place] [address], [place] [address] Jan, [facility] [address] [id number] [address] [place] [address], [place] [address] Jan, [facility] [address] [id number] [address] [place] [address], [place] [address] Jan, [facility] [address] [id number] [address] [place] [address], [place] [address] Dec, [facility] [address] [id number] [address] [place] [address], [place] [address] Dec, [facility] [address] [id number] [address] [place] [address], [place] [id number] Dec, [facility] [address] [id number] [address] [place] [address], [place] [address] Dec, [facility] [address] [id number] [address] [place] [address], [place] [address] Dec, [facility] [address] [id number] [address] [place] [address], [place] [address] Dec, [facility] [address] [id number] [address] [place] [address], [place] [address] Dec, [facility] [address] [id number] [address] [place] [address], [place] [address] Dec, [facility] [address] [id number] [address] [place] [address], [place] [address] Dec, [facility] [address] [id number] [address] [place] [address], [place] [address] Dec, [facility] [address] [id number] [address] [place] [address], [place] [address] Dec, [facility] [address] [id number] [address] [place] [address], [place] [address] Dec, [facility] [address] [id number] [address] [place] [address], [place] [address] Dec, [facility] [address] [id number] [address] [place] [address], [place] [address] Nov, [facility] [address] [id number] [address] [place] [address], [place] [address] Nov, [facility] [address] [id number] [address] [place] [address], [place] [address] Nov, [facility] [address] [id number] [address] [place] [address], [place] [address] Nov, [facility] [address] [id number] [address] [place] [address], [place] [address] October, [facility] [address] [id number] [address] [place] [address], [place] [address] October, [facility] [address] [id number] [address] [place] [address], [place] [address] October, [facility] [address] [id number] [address] [place] [address], [place] [address] October, [facility] [address] [id number] [address] [place] [address], [place] [address] October, [facility] [address] [id number] [address] [place] [address], [place] [address] October, [facility] [address] [id number] [address] [place] [address], [place] [address] Sep, [facility] [address] [id number] [address] [place] [address], [place] [address] Sep, [facility] [address] [id number] [address] [place] [address], [place] [address] Sep, [facility] [address] [id number] [address] [place] [address], [place] [address] Sep, [facility] [address] [id number] [address] [place] [address], [place] [address] Sep, [facility] [address] [id number] [facility] [place] [address] 16 Sep, 2012 [facility] [address] [id number] [address] [place] [address], [place] [address] 12 Sep, 2012 [facility] [address] [id number] [address] [place] [address], [place] [address] Sep, [facility] [address] [id number] [address] [place] [address], [place] [address] Sep, [facility] [address] [id number] [address] [place] [address], [place] [address] Sep, [facility] [address] [id number] [address] [place] [address], [place] [address] Sep, [facility] [address] [id number] [address] [place] [address], [place] [address] Aug, [facility] [address] [id number] [address] [place] [address], [place] [address] 25 Aug, 2012 [facility] [address] [id number] [address] [place] [address], [place] [address] 25 Aug, 2012 [facility] [address] [id number] [address] [place] [address], [place] [address] 21 Aug, 2012 [facility] [address] [id number] [address] [place] [address], [place] [address] 19 Aug, 2012 [facility] [address] [id number] [address] [place] [address], [place] [address] 18 Aug, 2012 [facility] [address] [id number] [address] [place] [address], [place] [address] 17 Aug, 2012 [facility] [address] [id number] [address] [place] [address], [place] [id number] 15 Aug, 2012 [facility] [address] [id number] [address] [place] [address], [place] [address] 15 Aug, 2012 [facility] [address] [id number] [address] [place] [address], [place] [address] Aug, [facility] [address] [id number] [address] [place] [address], [place] [address] Aug, [facility] [address] [id number] [address] [place] [address], [place] [address] Aug, [facility] [address] [id number] [address] [place] [address], [place] [address] Jul, [facility] [address] [id number] [address] [place] [address], [place] [address] Jul, [facility] [address] [id number] [address] [place] [address], [place] [address] Jul, [facility] [address] [id number] [address] [place] [address], [place] [address] Jul, [facility] [address] [id number] [address] [place] [address], [place] [address] Jul, [facility] [address] [id number] [address] [place] [address], [place] [id number] Jul, [facility] [address] [id number] [address] [place] [address], [place] [address] Jul, [facility] [address] [id number] [address] [place] [address], [place] [address] Jul, [facility] [address] [id number] [address] [place] [address], [place] [address] Jul, [facility] [address] [id number] [address] [place] [address], [place] [address] Jul, [facility] [address] [id number] [address] [place] [address], [place] [address] May, [facility] [address] [id number] [id number] May, [facility] [address] [id number] [address] [place] [address], [place] [address] May, [facility] [address] [id number] [address] [place] [id number] May, [facility] [address] [facility] [id number] [address] [place] [phone] May, [facility] [address] [facility] [id number] [address] [place] [id number] Apr, [facility] [place] [address] [id number] [place] [id number] Apr, [facility] [address] [facility] [id number] [address] [place] [phone] Apr, [facility] [address] [facility] [id number] [address] [place] [phone] Mar, [facility] [place] [address] [id number] [place] [id number] Mar, [facility] [address] [facility] [id number] [address] [place] [phone] Mar, [facility] [address] [id number] [place] [id number] Feb, [facility] [address] [facility] [id number] [address] [place] [id number] Feb, [facility] [address] [facility] [id number] [address] [place] [phone] Feb, [facility] [place] [address] [id number] [place] [id number] Feb, [facility] [address] [id number] [place] [id number] Feb, [facility] [address] [id number] [place] [id number] Jan, [facility] [address] [id number] [address] [place] [address], [place] [id number] Jan, [facility] [place] [address] [id number] [place] [id number] Jan, [facility] [address] [id number] [place] [id number] Jan, [facility] [place] [address] [id number] [place] [id number] Jan, [facility] [address] [facility] [id number] [address] [place] [address], [place] [id number] Jan, [facility] [address] [facility] [id number] [address] [place] [address], [place] [id number] Jan, [facility] [address] [facility] [id number] [address] [place] [address], [place] [id number] Aug, [facility] [place] [address] [id number] [place] [id number] Aug, [facility] [address] [facility] [id number] [address] [place] [address], [place] [id number] Jul, [facility] [address] [facility] [id number] [address] [place] [address], [place] [id number] Jul, [facility] [address] [facility] [id number] [address] [place] [address], [place] [id number] Jul, [facility] [place] [address] [id number] [place] [id number] Jul, [facility] [address] [facility] [id number] [address] [place] [address], [place] [id number] Jul, [facility] [place] [address] [id number] [place] [id number] Jul, [facility] [address] [facility] [id number] [address] [place] [address], [place] [id number] Jul, [facility] [place] [address] [id number] [place] [id number] Jul, [facility] [place] [address] [id number] [place] [id number] Jul, [facility] [place] [address] [id number] [place] [id number] Jul, [facility] [address] [facility] [id number] [address] [place] [address], [place] [id number] May, [facility] [address] [id number] [address] [place] [phone] May, [facility] [address] [id number] [address] [place] [id number] May, [facility] [address] [id number] [address] [place] [id number] Apr, [facility] [address] [id number] [address] [place] [id number] Jan, [facility] [address] [id number] [address] [place] [phone] Jan, [facility] [address] [id number] [address] [place] [phone] Dec, [facility] [address] [id number] [address] [place] [id number] Dec, [facility] [address] [id number] [address] [place] [phone] May, [facility] [address] [id number] [address] [place] [id number] Mar, [facility] [address] [id number] [address] [place] [id number] Mar, [facility] [address] [id number] [address] [place] [id number] Jan, IMMUNIZATIONS No Known Immunizations SOCIAL HISTORY Never Assessed REASON FOR VISIT PLAN OF CARE VITAL SIGNS MEDICATIONS Unknown Medications RESULTS No Results PROCEDURES Procedure Date Ordered Result Body Site PROTHROMBIN TIME Aug 19, 2014 INSTRUCTIONS MEDICATIONS ADMINISTERED No Known Medications [...]
--- OUTSIDE RECORDS SUMMARY | 2020-01-28 12:55 | XMS REPORT ---
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 Active 773377027 Problem History of venous thromboembolism V12.51 Active 449197751 Problem Cellulitis of unspecified part of limb L03.119 Active 716479311 Problem Gastroesophageal reflux disease without esophagitis K21.9 Active 977237265 Problem History of pulmonary embolism Z86.711 Active 737795200 Problem Pseudotumor cerebri G93.2 Active 00973969 Problem History of DVT (deep vein thrombosis) Z86.718 Active [id number] ALLERGIES No Information ENCOUNTERS Encounter Location Date Diagnosis [place] [id number] [facility] [id number] [address] [place] [address] Apr, [facility] (current) use of 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 Z79.01 [facility] [address] [facility] [id number] [address] [place] [address] Apr, [facility] 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.01 [facility] [address] [facility] [id number] [address] [place] [address] Apr, Cellulitis of unspecified pa rt of limb L03.119 ; Allergic contact dermatitis due to adhesives L23.1 and Chronic pain syndrome G89.4 [facility] [address] [facility] [id number] [address] [place] [address] Apr, [place] [address] [place] [id number] [address] [place] [address] Apr, 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.01 ; Cellulitis of unspecified part of limb L03.119 ; Chronic pain syndrome G89.4 and Anxiety F41.9 [facility] [address] [place] [id number] [address] [place] [address] 16 Apr, 2015 [facility] [address] [place] [id number] [place] [address] Apr, [place] [address] [place] [id number] [place] [address] Mar, [place] [address] [address] Mar, [place] [address] [address] Mar, Sore throat J02.9 ; Gastroes ophageal reflux disease without esophagitis K21.9 ; Pseudotumor cerebri G93.2 ; Chronic pain syndrome G89.4 ; Choriocarcinoma C58 ; History of pulmonary embolism Z86.711 ; History of DVT (deep vein thrombosis) Z86.718 ; Anxiety F41.9 and Tachycardia R00.0 [place] [address] [address] Feb, Anxiety 300.00 and Chronic p ain 338.29 [place] [address] [place] [id number] [address] [place] [address] Feb, [place] [address] [place] [id number] [address] [place] [address] Feb, [place] [address] [address] Jan, 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 therapy V58.61 and Dysuria 788.1 [place] [address] [place] [id number] [place] [address] Jan, Dysuria 788.1 [facility] [address] [place] [id number] [address] [place] [address] Jan, Anxiety 300.00 and Chronic p ain 338.29 [facility] [address] [place] [id number] [place] [address] Jan, [facility] [address] [address] Jan, [facility] [address] [address] Jan, [place] [address] [address] Dec, Weakness 780.79 [place] [address] [address] Dec, [facility] current use of ant icoagulant therapy V58.61 [place] [address] [address] Dec, Palpitations 785.1 ; Tremor 781.0 ; Weakness 780.79 ; [facility] current use of anticoagulant therapy V58.61 and Yeast vaginitis 112.1 [place] [address] [place] [id number] [address] [place] [address] Dec, [place] [address] [address] Dec, Cervicalgia 723.1 ; Tachycar yoseph 785.0 ; Pseudotumor cerebri 348.2 and History of venous thromboembolism V12.51 [place] [address] [address] Nov, [place] [address] [address] Nov, [place] [address] [address] Nov, Tachycardia 785.0 ; Pseudotu mor cerebri 348.2 ; Anxiety 300.00 and History of venous thromboembolism V12.51 [facility] [address] [id number] [address] [place] [address] Nov, [facility] [address] [id number] [address] [place] [address] 18 Nov, 2014 [facility] [address] [id number] [address] [place] [address] Nov, [facility] [address] [id number] [address] [place] [address] Nov, [facility] [address] [facility] [id number] [address] [place] [address] Nov, [facility] [address] [facility] [id number] [address] [place] [address] Nov, [facility] [address] [facility] [id number] [address] [place] [address] Nov, [facility] [address] [facility] [id number] [address] [place] [address] October, [facility] [address] [facility] [id number] [address] [place] [address] October, [facility] [address] [place] [id number] [address] [place] [address] October, Pain in thoracic spine 724.1 and Tachycardia 785.0 [facility] [address] [id number] [address] [place] [address] October, [facility] [address] [id number] [address] [place] [address] October, [facility] [address] [facility] [id number] [address] [place] [address] 14 Sep, 2014 [facility] [address] [facility] [id number] [address] [place] [address] Sep, [facility] [address] [id number] [facility] [place] [address] Aug, [facility] [address] [id number] [address] [place] [address], [place] [address] Aug, [facility] [address] [id number] [address] [place] [place] [address], [place] [address] Aug, [facility] [address] [id number] [address] [place] [place] [address], [place] [address] Aug, [facility] [address] [id number] [address] [place] [place] [address], [place] [address] Aug, [facility] [address] [id number] [address] [place] [place] [address], [place] [address] Aug, [facility] [address] [id number] [address] [place] [place] [address], [place] [address] Aug, [facility] [address] [id number] [address] [place] [place] [address], [place] [address] Aug, [facility] [address] [id number] [address] [place] [place] [address], [place] [address] Aug, [facility] [address] [id number] [address] [place] [place] [address], [place] [address] Aug, [facility] [address] [id number] [address] [place] [place] [address], [place] [address] Aug, [facility] [address] [id number] [address] [place] [place] [address], [place] [address] Aug, 2014 [facility] [address] [id number] [address] [place] [place] [address], [place] [address] Jul, [facility] [address] [id number] [address] [place] [place] [address], [place] [address] Jul, [facility] [address] [id number] [address] [place] [place] [address], [place] [address] Jul, [facility] [address] [id number] [address] [place] [place] [address], [place] [address] Jul, [facility] [address] [id number] [address] [place] [place] [address], [place] [address] 23 Jul, 2014 [facility] [address] [id number] [address] [place] [place] [address], [place] [address] 23 Jul, 2014 [facility] [address] [id number] [address] [place] [place] [address], [place] [address] 23 Jul, 2014 [facility] [address] [id number] [address] [place] [place] [address], [place] [address] 23 Jul, 2014 [facility] [address] [id number] [address] [place] [place] [address], [place] [address] 20 Jul, 2014 [facility] [address] [id number] [address] [place] [place] [address], [place] [address] 20 Jul, 2014 [facility] [address] [id number] [address] [place] [place] [address], [place] [address] 19 Jul, 2014 [facility] [address] [id number] [address] [place] [place] [address], [place] [address] 19 Jul, 2014 [facility] [address] [id number] [address] [place] [place] [address], [place] [address] 17 Jul, 2014 [facility] [address] [id number] [address] [place] [place] [address], [place] [address] 17 Jul, 2014 [facility] [address] [id number] [address] [place] [place] [address], [place] [address] 16 Jul, 2014 [facility] [address] [id number] [address] [place] [place] [address], [place] [address] 16 Jul, 2014 [facility] [address] [id number] [address] [place] [place] [address], [place] [address] 16 Jul, 2014 [facility] [address] [id number] [address] [place] [address] 16 Jul, 2014 [facility] [address] [id number] [address] [place] [address] 13 Jul, 2014 [facility] [address] [id number] [address] [place] [place] [address], [place] [address] Jul, [facility] [address] [id number] [address] [place] [place] [address], [place] [address] Jul, [facility] [address] [id number] [address] [place] [place] [address], [place] [address] Jul, 2014 [facility] [address] [id number] [address] [place] [place] [address], [place] [address] Jul, 2014 [facility] [address] [id number] [address] [place] [place] [address], [place] [address] Jul, [facility] [address] [id number] [address] [place] [place] [address], [place] [address] Jul, [facility] [address] [id number] [address] [place] [place] [address], [place] [address] Jul, [facility] [address] [id number] [address] [place] [place] [address], [place] [address] Jul, [facility] [address] [id number] [address] [place] [place] [address], [place] [address] Jul, [facility] [address] [id number] [address] [place] [place] [address], [place] [address] Jul, [facility] [address] [id number] [address] [place] [place] [address], [place] [address] Jul, [facility] [address] [id number] [address] [place] [place] [address], [place] [address] Jun, [facility] [address] [id number] [address] [place] [place] [address], [place] [address] Jun, [facility] [address] [id number] [address] [place] [place] [address], [place] [address] Jun, [facility] [address] [id number] [address] [place] [place] [address], [place] [address] Jun, [facility] [address] [id number] [address] [place] [place] [address], [place] [address] Jun, [facility] [address] [id number] [address] [place] [place] [address], [place] [address] Jun, [facility] [address] [id number] [address] [place] [place] [address], [place] [address] Jun, [facility] [address] [id number] [address] [place] [place] [address], [place] [address] Jun, [facility] [address] [id number] [address] [place] [place] [address], [place] [address] Jun, [facility] [address] [id number] [address] [place] [place] [address], [place] [address] Jun, [facility] [address] [id number] [address] [place] [place] [address], [place] [address] Jun, [facility] [address] [id number] [address] [place] [address], [place] [address] Jun, [facility] [address] [id number] [address] [place] [place] [address], [place] [address] Jun, [facility] [address] [id number] [address] [place] [place] [address], [place] [address] Jun, [facility] [address] [id number] [address] [place] [place] [address], [place] [address] Jun, [facility] [address] [id number] [address] [place] [place] [address], [place] [address] Jun, [facility] [address] [id number] [address] [place] [place] [address], [place] [address] Jun, [facility] [address] [id number] [address] [place] [place] [address], [place] [address] Jun, [facility] [address] [id number] [address] [place] [place] [address], [place] [address] Jun, [facility] [address] [id number] [address] [place] [place] [address], [place] [address] Jun, [facility] [address] [id number] [address] [place] [address], [place] [address] May, [facility] [address] [id number] [address] [place] [place] [address], [place] [address] May, [facility] [address] [id number] [address] [place] [place] [address], [place] [address] May, [facility] [address] [id number] [address] [place] [place] [address], [place] [address] May, [facility] [address] [id number] [address] [place] [place] [address], [place] [address] May, [facility] [address] [id number] [address] [place] [place] [address], [place] [address] May, [facility] [address] [id number] [address] [place] [place] [address], [place] [address] May, [facility] [address] [id number] [address] [place] [place] [address], [place] [address] May, [facility] [address] [id number] [address] [place] [place] [address], [place] [address] May, [facility] [address] [id number] [address] [place] [place] [address], [place] [address] May, [facility] [address] [id number] [address] [place] [place] [address], [place] [address] May, [facility] [address] [id number] [address] [place] [place] [address], [place] [address] 18 May, 2014 [facility] [address] [id number] [address] [place] [place] [address], [place] [address] 18 May, 2014 [facility] [address] [id number] [address] [place] [place] [address], [place] [address] 17 May, 2014 [facility] [address] [id number] [address] [place] [place] [address], [place] [address] 16 May, 2014 [facility] [address] [id number] [address] [place] [place] [address], [place] [address] 16 May, 2014 [facility] [address] [id number] [address] [place] [place] [address], [place] [address] 15 May, 2014 [facility] [address] [id number] [address] [place] [place] [address], [place] [address] 15 May, 2014 [facility] [address] [id number] [address] [place] [place] [address], [place] [address] May, [facility] [address] [id number] [address] [place] [place] [address], [place] [address] May, [facility] [address] [id number] [address] [place] [place] [address], [place] [address] May, [facility] [address] [id number] [address] [place] [place] [address], [place] [address] May, [facility] [address] [id number] [address] [place] [place] [address], [place] [address] May, [facility] [address] [id number] [address] [place] [place] [address], [place] [address] May, [facility] [address] [id number] [address] [place] [place] [address], [place] [address] May, [facility] [address] [id number] [address] [place] [place] [address], [place] [address] May, [facility] [address] [id number] [address] [place] [place] [address], [place] [address] May, [facility] [address] [id number] [address] [place] [place] [address], [place] [address] May, [facility] [address] [id number] [address] [place] [place] [address], [place] [address] May, [facility] [address] [id number] [address] [place] [place] [address], [place] [address] May, [facility] [address] [id number] [address] [place] [address], [place] [address] May, [facility] [address] [id number] [address] [place] [place] [address], [place] [address] May, [facility] [address] [id number] [address] [place] [place] [address], [place] [address] May, [facility] [address] [id number] [address] [place] [place] [address], [place] [address] May, [facility] [address] [id number] [address] [place] [place] [address], [place] [address] Apr, [facility] [address] [id number] [address] [place] [place] [address], [place] [address] Apr, [facility] [address] [id number] [address] [place] [place] [address], [place] [address] Apr, [facility] [address] [id number] [address] [place] [place] [address], [place] [address] Apr, [facility] [address] [id number] [address] [place] [place] [address], [place] [address] Apr, [facility] [address] [id number] [address] [place] [place] [address], [place] [address] Apr, [facility] [address] [id number] [address] [place] [place] [address], [place] [address] Apr, [facility] [address] [id number] [address] [place] [place] [address], [place] [address] Apr, [facility] [address] [id number] [address] [place] [address], [place] [address] Apr, [facility] [address] [id number] [address] [place] [place] [address], [place] [address] Apr, [facility] [address] [id number] [address] [place] [place] [address], [place] [address] Mar, [facility] [address] [id number] [address] [place] [place] [address], [place] [address] Mar, [facility] [address] [id number] [address] [place] [address] [address] Mar, [facility] [address] [id number] [address] [place] [address], [place] [address] 31 Mar, 2013 [facility] [address] [id number] [address] [place] [address], [place] [address] Mar, [facility] [address] [id number] [address] [place] [address], [place] [address] 30 Mar, 2014 [facility] [address] [id number] [address] [place] [address], [place] [address] Mar, [facility] [address] [id number] [address] [place] [address], [place] [address] Mar, [facility] [address] [id number] [address] [place] [address], [place] [address] Mar, [facility] [address] [id number] [address] [place] [address], [place] [address] Mar, [facility] [address] [id number] [address] [place] [address] Mar, [facility] [address] [id number] [address] [place] [address] Mar, [facility] [address] [id number] [address] [place] [address] Mar, [facility] [address] [id number] [address] [place] [address] Mar, 2013 [facility] [address] [id number] [address] [place] [address] Mar, 2013 [facility] [address] [id number] [address] [place] [address] Mar, [facility] [address] [id number] [address] [place] [address] Mar, [facility] [address] [id number] [address] [place] [address] Mar, 2013 [facility] [address] [id number] [address] [place] [address], [place] [address] 02 Mar, 2013 [facility] [address] [id number] [address] [place] [address], [place] [address] 02 Mar, 2013 [facility] [address] [id number] [address] [place] [address], [place] [address] 05 Sep, 2013 [facility] [address] [id number] [address] [place] [address], [place] [address] 05 Sep, 2013 [facility] [address] [id number] [address] [place] [address], [place] [address] 04 Sep, 2013 [facility] [address] [id number] [address] [place] [address], [place] [address] 04 Sep, 2013 [facility] [address] [id number] [address] [place] [address], [place] [address] 03 Feb, 2013 [facility] [address] [id number] [address] [place] [address], [place] [address] 03 Feb, 2013 [facility] [address] [id number] [address] [place] [address], [place] [address] 02 Feb, 2013 [facility] [address] [id number] [address] [place] [address], [place] [address] Feb, 2013 [facility] [address] [id number] [address] [place] [address], [place] [address] 02 Feb, 2013 [facility] [address] [id number] [address] [place] [address], [place] [address] Feb, 2013 [facility] [address] [id number] [address] [place] [address], [place] [address] Jan, [facility] [address] [id number] [address] [place] [address], [place] [address] Jan, [facility] [address] [id number] [address] [place] [address], [place] [address] Jan, [facility] [address] [id number] [address] [place] [address], [place] [address] Jan, [facility] [address] [id number] [facility] [address] Jan, [facility] [address] [id number] [address] [place] [address], [place] [address] Jan, [facility] [address] [id number] [address] [place] [address], [place] [address] Jan, [facility] [address] [id number] [address] [place] [address], [place] [address] Jan, [facility] [address] [id number] [address] [place] [address], [place] [address] Jan, [facility] [address] [id number] [address] [place] [address], [place] [address] Jan, [facility] [address] [id number] [address] [place] [address], [place] [address] Jan, [facility] [address] [id number] [address] [place] [address], [place] [address] Jan, [facility] [address] [id number] [address] [place] [address], [place] [address] Dec, [facility] [address] [id number] [address] [place] [address], [place] [address] Dec, [facility] [address] [id number] [address] [place] [address], [place] [address] Dec, [facility] [address] [id number] [address] [place] [address], [place] [address] Dec, [facility] [address] [id number] [address] [place] [place] [address], [place] [address] Dec, [facility] [address] [id number] [address] [place] [address], [place] [address] Dec, [facility] [address] [id number] [address] [place] [address], [place] [address] Dec, [facility] [address] [id number] [address] [place] [address], [place] [address] Dec, [facility] [address] [id number] [facility] [place] [address] Dec, [facility] [address] [id number] [address] [place] [address], [place] [address] Dec, [facility] [address] [id number] [address] [place] [address], [place] [address] Dec, [facility] [address] [id number] [address] [place] [address], [place] [address] Dec, [facility] [address] [id number] [address] [place] [place] [address], [place] [address] Nov, [facility] [address] [id number] [address] [place] [address], [place] [address] Nov, [facility] [address] [id number] [address] [place] [place] [address], [place] [address] Nov, [facility] [address] [id number] [address] [place] [place] [address], [place] [address] Nov, [facility] [address] [id number] [address] [place] [address], [place] [address] Nov, [facility] [address] [id number] [address] [place] [address], [place] [address] Nov, [facility] [address] [id number] [address] [place] [address], [place] [address] Nov, [facility] [address] [id number] [address] [place] [address], [place] [address] Nov, [facility] [address] [id number] [address] [place] [address], [place] [address] Nov, [facility] [address] [id number] [address] [place] [address], [place] [address] Nov, [facility] [address] [id number] [address] [place] [address], [place] [address] Nov, [facility] [address] [id number] [facility] [place] [address] Nov, [facility] [address] [id number] [address] [place] [address], [place] [address] Nov, [facility] [address] [id number] [address] [place] [address], [place] [address] Nov, [facility] [address] [id number] [address] [place] [address], [place] [address] October, [facility] [address] [id number] [address] [place] [address], [place] [address] October, [facility] [address] [id number] [address] [place] [address], [place] [address] October, [facility] [address] [id number] [address] [place] [address], [place] [address] October, [facility] [address] [id number] [address] [place] [address], [place] [address] October, [facility] [address] [id number] [address] [place] [address], [place] [address] October, [facility] [address] [id number] [address] [place] [address], [place] [address] October, [facility] [address] [id number] [address] [place] [address], [place] [address] October, [facility] [address] [id number] [address] [place] [address], [place] [address] October, [facility] [address] [id number] [address] [place] [address], [place] [address] October, [facility] [address] [id number] [address] [place] [address], [place] [address] October, [facility] [address] [id number] [address] [place] [address], [place] [address] October, [facility] [address] [id number] [address] [place] [address], [place] [address] Sep, [facility] [address] [id number] [facility] [address] Sep, [facility] [address] [id number] [address] [place] [address], [place] [address] Sep, [facility] [address] [id number] [facility] [place] [address] Sep, [facility] [address] [id number] [address] [place] [address], [place] [address] Sep, [facility] [address] [id number] [address] [place] [address], [place] [address] Sep, [facility] [address] [id number] [address] [place] [address], [place] [address] Aug, [facility] [address] [id number] [address] [place] [place] [address], [place] [address] Aug, [facility] [address] [id number] [address] [place] [place] [address], [place] [address] Aug, [facility] [address] [id number] [address] [place] [place] [address], [place] [address] Aug, [facility] [address] [id number] [address] [place] [address], [place] [address] Aug, [facility] [address] [id number] [address] [place] [place] [address], [place] [address] Aug, [facility] [address] [id number] [address] [place] [address], [place] [address] Jul, [facility] [address] [id number] [address] [place] [place] [address], [place] [address] Jul, [facility] [address] [id number] [address] [place] [place] [address], [place] [address] Jul, [facility] [address] [id number] [address] [place] [place] [address], [place] [address] Jul, [facility] [address] [id number] [address] [place] [address], [place] [address] 13 Jul, 2013 [facility] [address] [id number] [address] [place] [place] [address], [place] [address] Jul, [facility] [address] [id number] [address] [place] [address], [place] [address] Jul, [facility] [address] [id number] [address] [place] [place] [address], [place] [address] Jul, [facility] [address] [id number] [address] [place] [place] [address], [place] [address] Jul, [facility] [address] [id number] [address] [place] [address], [place] [address] Jul, [facility] [address] [id number] [address] [place] [address], [place] [address] Jun, [facility] [address] [id number] [address] [place] [place] [address], [place] [address] Jun, [facility] [address] [id number] [address] [place] [place] [address], [place] [address] Jun, [facility] [address] [id number] [address] [place] [place] [address], [place] [address] Jun, [facility] [address] [id number] [address] [place] [place] [address], [place] [address] Jun, [facility] [address] [id number] [address] [place] [place] [address], [place] [address] Jun, [facility] [address] [id number] [address] [place] [place] [address], [place] [address] Jun, [facility] [address] [id number] [address] [place] [place] [address], [place] [address] Jun, [facility] [address] [id number] [address] [place] [place] [address], [place] [address] May, [facility] [address] [id number] [address] [place] [address], [place] [address] May, [facility] [address] [id number] [address] [place] [place] [address], [place] [address] May, [facility] [address] [id number] [address] [place] [place] [address], [place] [address] May, [facility] [address] [id number] [address] [place] [place] [address], [place] [address] May, [facility] [address] [id number] [address] [place] [place] [address], [place] [address] May, [facility] [address] [id number] [address] [place] [place] [address], [place] [address] May, [facility] [address] [id number] [address] [place] [place] [address], [place] [address] May, [facility] [address] [id number] [address] [place] [place] [address], [place] [address] Apr, [facility] [address] [id number] [address] [place] [address] Apr, [facility] [address] [id number] [address] [place] [place] [address], [place] [address] Apr, [facility] [address] [id number] [address] [place] [address] Apr, [facility] [address] [id number] [address] [place] [address] Apr, [facility] [address] [id number] [address] [place] [address] Apr, [facility] [address] [id number] [address] [place] [place] [address], [place] [address] Mar, [facility] [address] [id number] [address] [place] [address] Mar, [facility] [address] [id number] [address] [place] [place] [address], [place] [address] Mar, [facility] [address] [id number] [address] [place] [place] [address], [place] [address] Mar, [facility] [address] [id number] [address] [place] [place] [address], [place] [address] Mar, [facility] [address] [id number] [address] [place] [place] [address], [place] [address] Mar, [facility] [address] [id number] [address] [place] [place] [address], [place] [address] Mar, [facility] [address] [id number] [address] [place] [place] [address], [place] [address] 30 Feb, 2012 [facility] [address] [id number] [address] [place] [place] [address], [place] [address] 30 Feb, 2013 [facility] [address] [id number] [address] [place] [place] [address], [place] [address] 27 Feb, 2013 [facility] [address] [id number] [address] [place] [place] [address], [place] [address] Feb, 2012 [facility] [address] [id number] [address] [place] [place] [address], [place] [address] Feb, [facility] [address] [id number] [address] [place] [place] [address], [place] [address] Feb, [facility] [address] [id number] [address] [place] [address], [place] [address] Jan, [facility] [address] [id number] [address] [place] [place] [address], [place] [address] Jan, [facility] [address] [id number] [address] [place] [place] [address], [place] [address] Jan, [facility] [address] [id number] [address] [place] [place] [address], [place] [address] Jan, [facility] [address] [id number] [address] [place] [place] [address], [place] [address] Jan, [facility] [address] [id number] [address] [place] [place] [address], [place] [address] Jan, [facility] [address] [id number] [address] [place] [place] [address], [place] [address] Jan, [facility] [address] [id number] [address] [place] [place] [address], [place] [address] Jan, [facility] [address] [id number] [address] [place] [place] [address], [place] [address] Jan, [facility] [address] [id number] [address] [place] [place] [address], [place] [address] Dec, [facility] [address] [id number] [address] [place] [place] [address], [place] [address] Dec, [facility] [address] [id number] [address] [place] [place] [address], [place] [address] Dec, [facility] [address] [id number] [address] [place] [place] [address], [place] [address] Dec, [facility] [address] [id number] [address] [place] [place] [address], [place] [address] Dec, [facility] [address] [id number] [address] [place] [place] [address], [place] [address] Dec, [facility] [address] [id number] [address] [place] [place] [address], [place] [address] Dec, [facility] [address] [id number] [address] [place] [place] [address], [place] [address] Dec, [facility] [address] [id number] [address] [place] [place] [address], [place] [address] Dec, [facility] [address] [id number] [address] [place] [address], [place] [address] Dec, [facility] [address] [id number] [address] [place] [place] [address], [place] [address] Dec, [facility] [address] [id number] [address] [place] [place] [address], [place] [address] Dec, [facility] [address] [id number] [address] [place] [place] [address], [place] [address] Dec, [facility] [address] [id number] [address] [place] [place] [address], [place] [address] Nov, [facility] [address] [id number] [address] [place] [place] [address], [place] [address] Nov, [facility] [address] [id number] [address] [place] [place] [address], [place] [address] Nov, [facility] [address] [id number] [address] [place] [place] [address], [place] [address] Nov, [facility] [address] [id number] [address] [place] [place] [address], [place] [address] October, [facility] [address] [id number] [address] [place] [address], [place] [address] October, [facility] [address] [id number] [address] [place] [address], [place] [address] October, [facility] [address] [id number] [address] [place] [address], [place] [address] October, [facility] [address] [id number] [address] [place] [address], [place] [address] October, [facility] [address] [id number] [address] [place] [address], [place] [address] October, [facility] [address] [id number] [address] [place] [place] [address], [place] [address] Sep, [facility] [address] [id number] [address] [place] [place] [address], [place] [address] Sep, [facility] [address] [id number] [address] [place] [place] [address], [place] [address] Sep, [facility] [address] [id number] [address] [place] [place] [address], [place] [address] Sep, [facility] [address] [id number] [address] [place] [address], [place] [address] Sep, [facility] [address] [id number] [facility] [place] [address] 16 Sep, 2012 [facility] [address] [id number] [address] [place] [place] [address], [place] [address] 12 Sep, 2012 [facility] [address] [id number] [address] [place] [address], [place] [address] Sep, [facility] [address] [id number] [address] [place] [address], [place] [address] Sep, [facility] [address] [id number] [address] [place] [place] [address], [place] [address] Sep, [facility] [address] [id number] [address] [place] [place] [address], [place] [address] Sep, [facility] [address] [id number] [address] [place] [place] [address], [place] [address] Aug, [facility] [address] [id number] [address] [place] [place] [address], [place] [address] 25 Aug, 2012 [facility] [address] [id number] [address] [place] [place] [address], [place] [address] 25 Aug, 2012 [facility] [address] [id number] [address] [place] [address], [place] [address] 21 Aug, 2012 [facility] [address] [id number] [address] [place] [address], [place] [address] 19 Aug, 2012 [facility] [address] [id number] [address] [place] [address], [place] [address] 18 Aug, 2012 [facility] [address] [id number] [address] [place] [address], [place] [address] 17 Aug, 2012 [facility] [address] [id number] [address] [place] [place] [address], [place] [address] 15 Aug, 2012 [facility] [address] [id number] [address] [place] [place] [address], [place] [address] 15 Aug, 2012 [facility] [address] [id number] [address] [place] [address], [place] [address] Aug, [facility] [address] [id number] [address] [place] [address], [place] [address] Aug, [facility] [address] [id number] [address] [place] [place] [address], [place] [address] Aug, [facility] [address] [id number] [address] [place] [place] [address], [place] [address] Jul, [facility] [address] [id number] [address] [place] [place] [address], [place] [address] Jul, [facility] [address] [id number] [address] [place] [place] [address], [place] [address] Jul, [facility] [address] [id number] [address] [place] [place] [address], [place] [address] Jul, [facility] [address] [id number] [address] [place] [place] [address], [place] [address] Jul, [facility] [address] [id number] [address] [place] [place] [address], [place] [address] Jul, [facility] [address] [id number] [address] [place] [place] [address], [place] [address] Jul, [facility] [address] [id number] [address] [place] [address], [place] [address] Jul, [facility] [address] [id number] [address] [place] [place] [address], [place] [address] Jul, [facility] [address] [id number] [address] [place] [address], [place] [address] Jul, [facility] [address] [id number] [address] [place] [address], [place] [address] May, [facility] [address] [id number] [place] [id number] May, [facility] [address] [id number] [address] [place] [address], [place] [address] May, [facility] [address] [id number] [address] [place] [address] May, [facility] [address] [facility] [id number] [address] [place] [address] May, [facility] [address] [facility] [id number] [address] [place] [address] Apr, [facility] [address] [id number] [place] [id number] Apr, [facility] [address] [facility] [id number] [address] [place] [address] Apr, [facility] [address] [facility] [id number] [address] [place] [address] Mar, [facility] [place] [address] [id number] [place] [id number] Mar, [facility] [address] [facility] [id number] [address] [place] [address] Mar, [facility] [address] [id number] [place] [id number] Feb, [facility] [address] [facility] [id number] [address] [place] [address] Feb, [facility] [address] [facility] [id number] [address] [place] [address] Feb, [facility] [place] [address] [id number] [place] [id number] Feb, [facility] [address] [id number] [place] [id number] Feb, [facility] [address] [id number] [place] [id number] Jan, [facility] [address] [id number] [address] [place] [place] [address], [place] [address] Jan, [facility] [place] [address] [id number] [place] [id number] Jan, [facility] [address] [id number] [place] [id number] Jan, [facility] [address] [id number] [place] [id number] Jan, [facility] [address] [facility] [id number] [address] [place] [address], [place] [address] Jan, [facility] [address] [facility] [id number] [address] [place] [place] [address], [place] [address] Jan, [facility] [address] [facility] [id number] [address] [place] [place] [address], [place] [address] Aug, [facility] [place] [address] [id number] [place] [id number] Aug, [facility] [address] [facility] [id number] [address] [place] [address], [place] [address] Jul, [facility] [address] [facility] [id number] [address] [place] [address], [place] [address] Jul, [facility] [address] [facility] [id number] [address] [place] [place] [address], [place] [address] Jul, [facility] [address] [id number] [place] [id number] Jul, [facility] [address] [facility] [id number] [address] [place] [address], [place] [address] Jul, [facility] [address] [id number] [place] [id number] Jul, [facility] [address] [facility] [id number] [address] [place] [address], [place] [address] Jul, [facility] [place] [address] [id number] [place] [id number] Jul, [facility] [address] [id number] [place] [id number] Jul, [facility] [address] [id number] [place] [id number] Jul, [facility] [address] [facility] [id number] [address] [place] [address], [place] [address] May, [facility] [address] [id number] [address] [place] [address] May, [facility] [address] [id number] [address] [place] [address] May, [facility] [address] [id number] [address] [place] [address] Apr, [facility] [address] [id number] [address] [place] [address] Jan, [facility] [address] [id number] [address] [place] [address] Jan, [facility] [address] [id number] [address] [place] [address] Dec, [facility] [address] [id number] [address] [place] [address] Dec, [facility] [address] [id number] [address] [place] [address] May, [facility] [facility] [address] [id number] [address] [place] [id number] Mar, [facility] [address] [id number] [address] [place] [phone] Mar, [facility] [address] [id number] [address] [place] [id number] Jan, IMMUNIZATIONS No Known Immunizations SOCIAL HISTORY [...]
--- OUTSIDE RECORDS SUMMARY | 2020-01-28 12:56 | XMS REPORT ---
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 Active 157131546 Problem History of venous thromboembolism V12.51 Active 026310041 Problem Cellulitis of unspecified part of limb L03.119 Active 019533348 Problem Gastroesophageal reflux disease without esophagitis K21.9 Active 050032414 Problem History of pulmonary embolism Z86.711 Active 868139821 Problem Pseudotumor cerebri G93.2 Active 83759676 Problem History of DVT (deep vein thrombosis) Z86.718 Active 516153431 ALLERGIES No Information ENCOUNTERS Encounter Location Date Diagnosis [place] [id number] [facility] [id number] [address] [place] [id number] Apr, jail (current) use of 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 Z79.01 [facility] [address] [facility] [id number] [address] [place] [id number] Apr, jail 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.01 [facility] [address] [facility] [id number] [address] [place] [address] Apr, Cellulitis of unspecified pa rt of limb L03.119 ; Allergic contact dermatitis due to adhesives L23.1 and Chronic pain syndrome G89.4 [facility] [address] [facility] [id number] [address] [place] [address] Apr, [place] [address] [place] [id number] [address] [place] [address] Apr, roasterman 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.01 ; Cellulitis of unspecified part of limb L03.119 ; Chronic pain syndrome G89.4 and Anxiety F41.9 [facility] [address] [place] [id number] [address] [place] [id number] 16 Apr, 2015 [facility] [address] [place] [id number] [place] [address] Apr, [place] [address] [place] [id number] [place] [address] Mar, [place] [address] [address] Mar, [place] [address] [address] Mar, Sore throat J02.9 ; Gastroes ophageal reflux disease without esophagitis K21.9 ; Pseudotumor cerebri G93.2 ; Chronic pain syndrome G89.4 ; Choriocarcinoma C58 ; History of pulmonary embolism Z86.711 ; History of DVT (deep vein thrombosis) Z86.718 ; Anxiety F41.9 and Tachycardia R00.0 [place] [address] [address] Feb, Anxiety 300.00 and Chronic p ain 338.29 [place] [address] [place] [id number] [address] [place] [address] Feb, [place] [address] [place] [id number] [address] [place] [address] Feb, [place] [address] [address] Jan, roasterman current use of ant icoagulant therapy V58.61 and Dysuria 788.1 [place] [address] [place] [id number] [place] [address] Jan, Dysuria 788.1 [facility] [address] [place] [id number] [address] [place] [address] Jan, Anxiety 300.00 and Chronic p ain 338.29 [facility] [address] [place] [id number] [place] [address] Jan, [facility] [address] [address] Jan, [facility] [address] [address] Jan, [place] [address] [address] Dec, Weakness 780.79 [place] [address] [address] Dec, jail current use of ant icoagulant therapy V58.61 [place] [address] [address] Dec, Palpitations 785.1 ; Tremor 781.0 ; Weakness 780.79 ; jail current use of anticoagulant therapy V58.61 and Yeast vaginitis 112.1 [place] [address] [place] [id number] [address] [place] [address] Dec, [place] [address] [address] Dec, Cervicalgia 723.1 ; Tachycar yoseph 785.0 ; Pseudotumor cerebri 348.2 and History of venous thromboembolism V12.51 [place] [address] [address] Nov, [place] [address] [address] Nov, [place] [address] [address] Nov, Tachycardia 785.0 ; Pseudotu mor cerebri 348.2 ; Anxiety 300.00 and History of venous thromboembolism V12.51 [facility] [address] [id number] [address] [place] [address] Nov, [facility] [address] [id number] [address] [place] [address] 18 Nov, 2014 [facility] [address] [id number] [address] [place] [address] Nov, [facility] [address] [id number] [address] [place] [address] Nov, [facility] [address] [facility] [id number] [address] [place] [address] Nov, [facility] [address] [facility] [id number] [address] [place] [address] Nov, [facility] [address] [facility] [id number] [address] [place] [address] Nov, [facility] [address] [facility] [id number] [address] [place] [address] October, [facility] [address] [facility] [id number] [address] [place] [address] October, [facility] [address] [place] [id number] [address] [place] [address] October, Pain in thoracic spine 724.1 and Tachycardia 785.0 [facility] [address] [id number] [address] [place] [address] October, [facility] [address] [id number] [address] [place] [address] October, [facility] [address] [facility] [id number] [address] [place] [address] 14 Sep, 2014 [facility] [address] [facility] [id number] [address] [place] [phone] Sep, [facility] [address] [id number] [facility] [place] [address] Aug, [facility] [address] [id number] [address] [place] [address], [place] [address] Aug, [facility] [address] [id number] [address] [place] [address], [place] [address] Aug, [facility] [address] [id number] [address] [place] [address], [place] [address] Aug, [facility] [address] [id number] [address] [place] [address], [place] [address] Aug, [facility] [address] [id number] [address] [place] [address], [place] [address] Aug, [facility] [address] [id number] [address] [place] [address], [place] [address] Aug, [facility] [address] [id number] [address] [place] [address], [place] [address] Aug, [facility] [address] [id number] [address] [place] [address], [place] [address] Aug, [facility] [address] [id number] [address] [place] [address], [place] [address] Aug, [facility] [address] [id number] [address] [place] [address], [place] [address] Aug, [facility] [address] [id number] [address] [place] [address], [place] [address] Aug, 2014 [facility] [address] [id number] [address] [place] [address], [place] [address] Jul, [facility] [address] [id number] [address] [place] [address], [place] [address] Jul, [facility] [address] [id number] [address] [place] [address], [place] [address] Jul, [facility] [address] [id number] [address] [place] [address], [place] [address] Jul, [facility] [address] [id number] [address] [place] [address], [place] [address] 23 Jul, 2014 [facility] [address] [id number] [address] [place] [address], [place] [address] 23 Jul, 2014 [facility] [address] [id number] [address] [place] [address], [place] [address] 23 Jul, 2014 [facility] [address] [id number] [address] [place] [address], [place] [address] 23 Jul, 2014 [facility] [address] [id number] [address] [place] [address], [place] [address] 20 Jul, 2014 [facility] [address] [id number] [address] [place] [address], [place] [address] 20 Jul, 2014 [facility] [address] [id number] [address] [place] [address], [place] [address] 19 Jul, 2014 [facility] [address] [id number] [address] [place] [address], [place] [address] 19 Jul, 2014 [facility] [address] [id number] [address] [place] [address], [place] [address] 17 Jul, 2014 [facility] [address] [id number] [address] [place] [address], [place] [address] 17 Jul, 2014 [facility] [address] [id number] [address] [place] [address], [place] [address] 16 Jul, 2014 [facility] [address] [id number] [address] [place] [address], [place] [address] 16 Jul, 2014 [facility] [address] [id number] [address] [place] [address], [place] [address] 16 Jul, 2014 [facility] [address] [id number] [address] [place] [id number] 16 Jul, 2014 [facility] [address] [id number] [address] [place] [id number] 13 Jul, 2014 [facility] [address] [id number] [address] [place] [address], [place] [address] Jul, [facility] [address] [id number] [address] [place] [address], [place] [address] Jul, [facility] [address] [id number] [address] [place] [address], [place] [address] Jul, 2014 [facility] [address] [id number] [address] [place] [address], [place] [address] Jul, 2014 [facility] [address] [id number] [address] [place] [address], [place] [address] Jul, [facility] [address] [id number] [address] [place] [address], [place] [address] Jul, [facility] [address] [id number] [address] [place] [address], [place] [address] Jul, [facility] [address] [id number] [address] [place] [address], [place] [address] Jul, [facility] [address] [id number] [address] [place] [address], [place] [address] Jul, [facility] [address] [id number] [address] [place] [address], [place] [address] Jul, [facility] [address] [id number] [address] [place] [address], [place] [address] Jul, [facility] [address] [id number] [address] [place] [address], [place] [address] Jun, [facility] [address] [id number] [address] [place] [address], [place] [address] Jun, [facility] [address] [id number] [address] [place] [address], [place] [address] Jun, [facility] [address] [id number] [address] [place] [address], [place] [address] Jun, [facility] [address] [id number] [address] [place] [address], [place] [address] Jun, [facility] [address] [id number] [address] [place] [address], [place] [address] Jun, [facility] [address] [id number] [address] [place] [address], [place] [address] Jun, [facility] [address] [id number] [address] [place] [address], [place] [address] Jun, [facility] [address] [id number] [address] [place] [address], [place] [address] Jun, [facility] [address] [id number] [address] [place] [address], [place] [address] Jun, [facility] [address] [id number] [address] [place] [address], [place] [address] Jun, [facility] [address] [id number] [address] [place] [address], [place] [address] Jun, [facility] [address] [id number] [address] [place] [address], [place] [address] Jun, [facility] [address] [id number] [address] [place] [address], [place] [address] Jun, [facility] [address] [id number] [address] [place] [address], [place] [address] Jun, [facility] [address] [id number] [address] [place] [address], [place] [address] Jun, [facility] [address] [id number] [address] [place] [address], [place] [address] Jun, [facility] [address] [id number] [address] [place] [address], [place] [address] Jun, [facility] [address] [id number] [address] [place] [address], [place] [address] Jun, [facility] [address] [id number] [address] [place] [address], [place] [address] Jun, [facility] [address] [id number] [address] [place] [address], [place] [address] May, [facility] [address] [id number] [address] [place] [address], [place] [address] May, [facility] [address] [id number] [address] [place] [address], [place] [address] May, [facility] [address] [id number] [address] [place] [address], [place] [address] May, [facility] [address] [id number] [address] [place] [address], [place] [address] May, [facility] [address] [id number] [address] [place] [address], [place] [address] May, [facility] [address] [id number] [address] [place] [address], [place] [address] May, [facility] [address] [id number] [address] [place] [address], [place] [address] May, [facility] [address] [id number] [address] [place] [address], [place] [address] May, [facility] [address] [id number] [address] [place] [address], [place] [address] May, [facility] [address] [id number] [address] [place] [address], [place] [address] May, [facility] [address] [id number] [address] [place] [address], [place] [address] 18 May, 2014 [facility] [address] [id number] [address] [place] [address], [place] [address] 18 May, 2014 [facility] [address] [id number] [address] [place] [address], [place] [address] 17 May, 2014 [facility] [address] [id number] [address] [place] [address], [place] [address] 16 May, 2014 [facility] [address] [id number] [address] [place] [address], [place] [address] 16 May, 2014 [facility] [address] [id number] [address] [place] [address], [place] [address] 15 May, 2014 [facility] [address] [id number] [address] [place] [address], [place] [address] 15 May, 2014 [facility] [address] [id number] [address] [place] [address], [place] [address] May, [facility] [address] [id number] [address] [place] [address], [place] [address] May, [facility] [address] [id number] [address] [place] [address], [place] [address] May, [facility] [address] [id number] [address] [place] [address], [place] [address] May, [facility] [address] [id number] [address] [place] [address], [place] [address] May, [facility] [address] [id number] [address] [place] [address], [place] [address] May, [facility] [address] [id number] [address] [place] [address], [place] [address] May, [facility] [address] [id number] [address] [place] [address], [place] [address] May, [facility] [address] [id number] [address] [place] [address], [place] [address] May, [facility] [address] [id number] [address] [place] [address], [place] [address] May, [facility] [address] [id number] [address] [place] [address], [place] [address] May, [facility] [address] [id number] [address] [place] [address], [place] [address] May, [facility] [address] [id number] [address] [place] [address], [place] [address] May, [facility] [address] [id number] [address] [place] [address], [place] [address] May, [facility] [address] [id number] [address] [place] [address], [place] [address] May, [facility] [address] [id number] [address] [place] [address], [place] [address] May, [facility] [address] [id number] [address] [place] [address], [place] [address] Apr, [facility] [address] [id number] [address] [place] [address], [place] [address] Apr, [facility] [address] [id number] [address] [place] [address], [place] [address] Apr, [facility] [address] [id number] [address] [place] [address], [place] [address] Apr, [facility] [address] [id number] [address] [place] [address], [place] [address] Apr, [facility] [address] [id number] [address] [place] [address], [place] [address] Apr, [facility] [address] [id number] [address] [place] [address], [place] [address] Apr, [facility] [address] [id number] [address] [place] [address], [place] [address] Apr, [facility] [address] [id number] [address] [place] [address], [place] [address] Apr, [facility] [address] [id number] [address] [place] [address], [place] [address] Apr, [facility] [address] [id number] [address] [place] [address], [place] [id number] Mar, [facility] [address] [id number] [address] [place] [address], [place] [id number] Mar, [facility] [address] [id number] [address] [place] [address] [address] Mar, [facility] [address] [id number] [address] [place] [address], [place] [id number] 31 Mar, 2013 [facility] [address] [id number] [address] [place] [address], [place] [address] Mar, [facility] [address] [id number] [address] [place] [address], [place] [id number] 30 Mar, 2014 [facility] [address] [id number] [address] [place] [address], [place] [id number] Mar, [facility] [address] [id number] [address] [place] [address], [place] [id number] Mar, [facility] [address] [id number] [address] [place] [address], [place] [id number] Mar, [facility] [address] [id number] [address] [place] [address], [place] [id number] Mar, [facility] [address] [id number] [address] [place] [id number] Mar, [facility] [address] [id number] [address] [place] [id number] Mar, [facility] [address] [id number] [address] [place] [id number] Mar, [facility] [address] [id number] [address] [place] [id number] Mar, 2013 [facility] [address] [id number] [address] [place] [id number] Mar, 2013 [facility] [address] [id number] [address] [place] [id number] Mar, [facility] [address] [id number] [address] [place] [id number] Mar, [facility] [address] [id number] [address] [place] [id number] Mar, 2013 [facility] [address] [id number] [address] [place] [address], [place] [id number] 02 Mar, 2013 [facility] [address] [id number] [address] [place] [address], [place] [id number] 02 Mar, 2013 [facility] [address] [id number] [address] [place] [address], [place] [id number] 05 Sep, 2013 [facility] [address] [id number] [address] [place] [address], [place] [id number] 05 Sep, 2013 [facility] [address] [id number] [address] [place] [address], [place] [id number] 04 Sep, 2013 [facility] [address] [id number] [address] [place] [address], [place] [id number] 04 Sep, 2013 [facility] [address] [id number] [address] [place] [address], [place] [id number] 03 Feb, 2013 [facility] [address] [id number] [address] [place] [address], [place] [id number] 03 Feb, 2013 [facility] [address] [id number] [address] [place] [address], [place] [id number] 02 Feb, 2013 [facility] [address] [id number] [address] [place] [address], [place] [id number] Feb, 2013 [facility] [address] [id number] [address] [place] [address], [place] [id number] 02 Feb, 2013 [facility] [address] [id number] [address] [place] [address], [place] [id number] Feb, 2013 [facility] [address] [id number] [address] [place] [address], [place] [id number] Jan, [facility] [address] [id number] [address] [place] [address], [place] [address] Jan, [facility] [address] [id number] [address] [place] [address], [place] [id number] Jan, [facility] [address] [id number] [address] [place] [address], [place] [id number] Jan, [facility] [address] [id number] [facility] [place] [address] Jan, [facility] [address] [id number] [address] [place] [address], [place] [id number] Jan, [facility] [address] [id number] [address] [place] [address], [place] [id number] Jan, [facility] [address] [id number] [address] [place] [address], [place] [id number] Jan, [facility] [address] [id number] [address] [place] [address], [place] [address] Jan, [facility] [address] [id number] [address] [place] [address], [place] [id number] Jan, [facility] [address] [id number] [address] [place] [address] [place] [address] [address] Jan, [facility] [address] [id number] [address] [place] [address], [place] [address] Jan, [facility] [address] [id number] [address] [place] [address], [place] [address] Dec, [facility] [address] [id number] [address] [place] [address], [place] [address] Dec, [facility] [address] [id number] [address] [place] [address], [place] [address] Dec, [facility] [address] [id number] [address] [place] [address], [place] [address] Dec, [facility] [address] [id number] [address] [place] [address], [place] [address] Dec, [facility] [address] [id number] [address] [place] [address], [place] [address] Dec, [facility] [address] [id number] [address] [place] [address], [place] [address] Dec, [facility] [address] [id number] [address] [place] [address], [place] [address] Dec, [facility] [address] [id number] [facility] [place] [address] Dec, [facility] [address] [id number] [address] [place] [address], [place] [address] Dec, [facility] [address] [id number] [address] [place] [address], [place] [address] Dec, [facility] [address] [id number] [address] [place] [address], [place] [address] Dec, [facility] [address] [id number] [address] [place] [address], [place] [address] Nov, [facility] [address] [id number] [address] [place] [address], [place] [address] Nov, [facility] [address] [id number] [address] [place] [address], [place] [address] Nov, [facility] [address] [id number] [address] [place] [address], [place] [address] Nov, [facility] [address] [id number] [address] [place] [address], [place] [address] Nov, [facility] [address] [id number] [address] [place] [address], [place] [address] Nov, [facility] [address] [id number] [address] [place] [address], [place] [address] Nov, [facility] [address] [id number] [address] [place] [address], [place] [address] Nov, [facility] [address] [id number] [address] [place] [address], [place] [address] Nov, [facility] [address] [id number] [address] [place] [address], [place] [address] Nov, [facility] [address] [id number] [address] [place] [address], [place] [address] Nov, [facility] [address] [id number] [facility] [place] [address] Nov, [facility] [address] [id number] [address] [place] [address], [place] [address] Nov, [facility] [address] [id number] [address] [place] [address], [place] [address] Nov, [facility] [address] [id number] [address] [place] [address], [place] [address] October, [facility] [address] [id number] [address] [place] [address], [place] [address] October, [facility] [address] [id number] [address] [place] [address], [place] [address] October, [facility] [address] [id number] [address] [place] [address], [place] [address] October, [facility] [address] [id number] [address] [place] [address], [place] [address] October, [facility] [address] [id number] [address] [place] [address], [place] [address] October, [facility] [address] [id number] [address] [place] [address], [place] [address] October, [facility] [address] [id number] [address] [place] [address], [place] [address] October, [facility] [address] [id number] [address] [place] [address], [place] [address] October, [facility] [address] [id number] [address] [place] [address], [place] [address] October, [facility] [address] [id number] [address] [place] [address], [place] [address] October, [facility] [address] [id number] [address] [place] [address], [place] [address] October, [facility] [address] [id number] [address] [place] [address], [place] [address] Sep, [facility] [address] [id number] [facility] [place] [address] Sep, [facility] [address] [id number] [address] [place] [address], [place] [address] Sep, [facility] [address] [id number] [facility] [place] [address] Sep, [facility] [address] [id number] [address] [place] [address], [place] [address] Sep, [facility] [address] [id number] [address] [place] [address], [place] [address] Sep, [facility] [address] [id number] [address] [place] [address], [place] [address] Aug, [facility] [address] [id number] [address] [place] [address], [place] [address] Aug, [facility] [address] [id number] [address] [place] [address], [place] [address] Aug, [facility] [address] [id number] [address] [place] [address], [place] [address] Aug, [facility] [address] [id number] [address] [place] [address], [place] [address] Aug, [facility] [address] [id number] [address] [place] [address], [place] [address] Aug, [facility] [address] [id number] [address] [place] [address], [place] [address] Jul, [facility] [address] [id number] [address] [place] [address], [place] [address] Jul, [facility] [address] [id number] [address] [place] [address], [place] [address] Jul, [facility] [address] [id number] [address] [place] [address], [place] [address] Jul, [facility] [address] [id number] [address] [place] [address], [place] [address] 13 Jul, 2013 [facility] [address] [id number] [address] [place] [address], [place] [address] Jul, [facility] [address] [id number] [address] [place] [address], [place] [address] Jul, [facility] [address] [id number] [address] [place] [address], [place] [address] Jul, [facility] [address] [id number] [address] [place] [address], [place] [address] Jul, [facility] [address] [id number] [address] [place] [address], [place] [address] Jul, [facility] [address] [id number] [address] [place] [address], [place] [address] Jun, [facility] [address] [id number] [address] [place] [address], [place] [address] Jun, [facility] [address] [id number] [address] [place] [address], [place] [address] Jun, [facility] [address] [id number] [address] [place] [address], [place] [address] Jun, [facility] [address] [id number] [address] [place] [address], [place] [address] Jun, [facility] [address] [id number] [address] [place] [address], [place] [address] Jun, [facility] [address] [id number] [address] [place] [address], [place] [address] Jun, [facility] [address] [id number] [address] [place] [address], [place] [address] Jun, [facility] [address] [id number] [address] [place] [address], [place] [address] May, [facility] [address] [id number] [address] [place] [address], [place] [address] May, [facility] [address] [id number] [address] [place] [address], [place] [address] May, [facility] [address] [id number] [address] [place] [address], [place] [address] May, [facility] [address] [id number] [address] [place] [address], [place] [address] May, [facility] [address] [id number] [address] [place] [address], [place] [address] May, [facility] [address] [id number] [address] [place] [address], [place] [address] May, [facility] [address] [id number] [address] [place] [address], [place] [address] May, [facility] [address] [id number] [address] [place] [address], [place] [address] Apr, [facility] [address] [id number] [address] [place] [id number] Apr, [facility] [address] [id number] [address] [place] [address], [place] [address] Apr, [facility] [address] [id number] [address] [place] [address] Apr, [facility] [address] [id number] [address] [place] [address] Apr, [facility] [address] [id number] [address] [place] [address] Apr, [facility] [address] [id number] [address] [place] [address], [place] [address] Mar, [facility] [address] [id number] [address] [place] [address] Mar, [facility] [address] [id number] [address] [place] [address], [place] [address] Mar, [facility] [address] [id number] [address] [place] [address], [place] [address] Mar, [facility] [address] [id number] [address] [place] [address], [place] [address] Mar, [facility] [address] [id number] [address] [place] [address], [place] [address] Mar, [facility] [address] [id number] [address] [place] [address], [place] [address] Mar, [facility] [address] [id number] [address] [place] [address], [place] [address] 30 Feb, 2012 [facility] [address] [id number] [address] [place] [address], [place] [address] 30 Feb, 2013 [facility] [address] [id number] [address] [place] [address], [place] [address] 27 Feb, 2013 [facility] [address] [id number] [address] [place] [address], [place] [address] Feb, 2012 [facility] [address] [id number] [address] [place] [address], [place] [address] Feb, [facility] [address] [id number] [address] [place] [address], [place] [address] Feb, [facility] [address] [id number] [address] [place] [address], [place] [address] Jan, [facility] [address] [id number] [address] [place] [address], [place] [address] Jan, [facility] [address] [id number] [address] [place] [address], [place] [address] Jan, [facility] [address] [id number] [address] [place] [address], [place] [address] Jan, [facility] [address] [id number] [address] [place] [address], [place] [address] Jan, [facility] [address] [id number] [address] [place] [address], [place] [address] Jan, [facility] [address] [id number] [address] [place] [address], [place] [address] Jan, [facility] [address] [id number] [address] [place] [address], [place] [address] Jan, [facility] [address] [id number] [address] [place] [address], [place] [address] Jan, [facility] [address] [id number] [address] [place] [address], [place] [address] Dec, [facility] [address] [id number] [address] [place] [address], [place] [address] Dec, [facility] [address] [id number] [address] [place] [address], [place] [address] Dec, [facility] [address] [id number] [address] [place] [address], [place] [address] Dec, [facility] [address] [id number] [address] [place] [address], [place] [address] Dec, [facility] [address] [id number] [address] [place] [address], [place] [address] Dec, [facility] [address] [id number] [address] [place] [address], [place] [address] Dec, [facility] [address] [id number] [address] [place] [address], [place] [address] Dec, [facility] [address] [id number] [address] [place] [address], [place] [address] Dec, [facility] [address] [id number] [address] [place] [address], [place] [address] Dec, [facility] [address] [id number] [address] [place] [address], [place] [address] Dec, [facility] [address] [id number] [address] [place] [address], [place] [address] Dec, [facility] [address] [id number] [address] [place] [address], [place] [address] Dec, [facility] [address] [id number] [address] [place] [address], [place] [address] Nov, [facility] [address] [id number] [address] [place] [address], [place] [address] Nov, [facility] [address] [id number] [address] [place] [address], [place] [address] Nov, [facility] [address] [id number] [address] [place] [address], [place] [address] Nov, [facility] [address] [id number] [address] [place] [address], [place] [address] October, [facility] [address] [id number] [address] [place] [address], [place] [address] October, [facility] [address] [id number] [address] [place] [address], [place] [address] October, [facility] [address] [id number] [address] [place] [address], [place] [address] October, [facility] [address] [id number] [address] [place] [address], [place] [address] October, [facility] [address] [id number] [address] [place] [address], [place] [address] October, [facility] [address] [id number] [address] [place] [address], [place] [address] Sep, [facility] [address] [id number] [address] [place] [address], [place] [address] Sep, [facility] [address] [id number] [address] [place] [address], [place] [address] Sep, [facility] [address] [id number] [address] [place] [address], [place] [address] Sep, [facility] [address] [id number] [address] [place] [address], [place] [address] Sep, [facility] [address] [id number] [facility] [place] [address] 16 Sep, 2012 [facility] [address] [id number] [address] [place] [address], [place] [address] 12 Sep, 2012 [facility] [address] [id number] [address] [place] [address], [place] [address] Sep, [facility] [address] [id number] [address] [place] [address], [place] [address] Sep, [facility] [address] [id number] [address] [place] [address], [place] [address] Sep, [facility] [address] [id number] [address] [place] [address], [place] [address] Sep, [facility] [address] [id number] [address] [place] [address], [place] [address] Aug, [facility] [address] [id number] [address] [place] [address], [place] [address] 25 Aug, 2012 [facility] [address] [id number] [address] [place] [address], [place] [address] 25 Aug, 2012 [facility] [address] [id number] [address] [place] [address], [place] [address] 21 Aug, 2012 [facility] [address] [id number] [address] [place] [address], [place] [address] 19 Aug, 2012 [facility] [address] [id number] [address] [place] [address], [place] [address] 18 Aug, 2012 [facility] [address] [id number] [address] [place] [address], [place] [address] 17 Aug, 2012 [facility] [address] [id number] [address] [place] [address], [place] [address] 15 Aug, 2012 [facility] [address] [id number] [address] [place] [address], [place] [id number] 15 Aug, 2012 [facility] [address] [id number] [address] [place] [address], [place] [id number] Aug, [facility] [address] [id number] [address] [place] [address], [place] [id number] Aug, [facility] [address] [id number] [address] [place] [address], [place] [id number] Aug, [facility] [address] [id number] [address] [place] [address], [place] [id number] Jul, [facility] [address] [id number] [address] [place] [address], [place] [id number] Jul, [facility] [address] [id number] [address] [place] [address], [place] [id number] Jul, [facility] [address] [id number] [address] [place] [address], [place] [id number] Jul, [facility] [address] [id number] [address] [place] [address], [place] [id number] Jul, [facility] [address] [id number] [address] [place] [address], [place] [id number] Jul, [facility] [address] [id number] [address] [place] [address], [place] [id number] Jul, [facility] [address] [id number] [address] [place] [address], [place] [id number] Jul, [facility] [address] [id number] [address] [place] [address], [place] [id number] Jul, [facility] [address] [id number] [address] [place] [address], [place] [id number] Jul, [facility] [address] [id number] [address] [place] [address], [place] [id number] May, [facility] [address] [id number] [place] [id number] May, [facility] [address] [id number] [address] [place] [address], [place] [id number] May, [facility] [address] [id number] [address] [place] [id number] May, [facility] [address] [facility] [id number] [address] [place] [id number] May, [facility] [address] [facility] [id number] [address] [place] [id number] Apr, [facility] [place] [address] [id number] [place] [id number] Apr, [facility] [address] [facility] [id number] [address] [place] [id number] Apr, [facility] [address] [facility] [id number] [address] [place] [id number] Mar, [facility] [place] [address] [id number] [place] [id number] Mar, [facility] [address] [facility] [id number] [address] [place] [id number] Mar, [facility] [place] [address] [id number] [place] [id number] Feb, [facility] [address] [facility] [id number] [address] [place] [id number] Feb, [facility] [address] [facility] [id number] [address] [place] [id number] Feb, [facility] [place] [address] [id number] [place] [id number] Feb, [facility] [place] [address] [id number] [place] [id number] Feb, [facility] [address] [id number] [place] [id number] Jan, [facility] [address] [id number] [address] [place] [address], [place] [id number] Jan, [facility] [place] [address] [id number] [place] [id number] Jan, [facility] [place] [address] [id number] [place] [id number] Jan, [facility] [place] [address] [id number] [place] [id number] Jan, [facility] [address] [facility] [id number] [address] [place] [address], [place] [id number] Jan, [facility] [address] [facility] [id number] [address] [place] [address], [place] [id number] Jan, [facility] [address] [facility] [id number] [address] [place] [address], [place] [id number] Aug, [facility] [place] [address] [id number] [place] [id number] Aug, [facility] [address] [facility] [id number] [address] [place] [address], [place] [id number] Jul, [facility] [address] [facility] [id number] [address] [place] [address], [place] [id number] Jul, [facility] [address] [facility] [id number] [address] [place] [address], [place] [id number] Jul, [facility] [place] [address] [id number] [place] [id number] Jul, [facility] [address] [facility] [id number] [address] [place] [address], [place] [id number] Jul, [facility] [place] [address] [id number] [place] [id number] Jul, [facility] [address] [facility] [id number] [address] [place] [address], [place] [id number] Jul, [facility] [place] [address] [id number] [place] [id number] Jul, [facility] [place] [address] [id number] [place] [id number] Jul, [facility] [place] [address] [id number] [place] [id number] Jul, [facility] [address] [facility] [id number] [address] [place] [address], [place] [id number] May, [facility] [address] [id number] [address] [place] [id number] May, [facility] [address] [id number] [address] [place] [id number] May, [facility] [address] [id number] [address] [place] [id number] Apr, [facility] [address] [id number] [address] [place] [id number] Jan, [facility] [address] [id number] [address] [place] [id number] Jan, [facility] [address] [id number] [address] [place] [id number] Dec, [facility] [address] [id number] [address] [place] [id number] Dec, [facility] [address] [id number] [address] [place] [id number] May, [facility] [address] [id number] [address] [place] [id number] Mar, [facility] [address] [id number] [address] [place] [id number] Mar, [facility] [address] [id number] [address] [place] [id number] Jan, IMMUNIZATIONS No Known Immunizations SOCIAL HISTORY [...]
--- OUTSIDE RECORDS SUMMARY | 2020-01-28 12:56 | XMS REPORT ---
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 Active 573660165 Problem History of venous thromboembolism V12.51 Active 783458812 Problem Cellulitis of unspecified part of limb L03.119 Active 585440609 Problem Gastroesophageal reflux disease without esophagitis K21.9 Active 092480238 Problem History of pulmonary embolism Z86.711 Active 423501247 Problem Pseudotumor cerebri G93.2 Active 21654929 Problem History of DVT (deep vein thrombosis) Z86.718 Active 840991748 ALLERGIES No Information ENCOUNTERS Encounter Location Date Diagnosis [place] [id number] [facility] [id number] [address] [place] [id number] Apr, prison (current) use of 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 Z79.01 [facility] [address] [facility] [id number] [address] [place] [id number] Apr, prison 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.01 [facility] [address] [facility] [id number] [address] [place] [phone] Apr, Cellulitis of unspecified pa rt of limb L03.119 ; Allergic contact dermatitis due to adhesives L23.1 and Chronic pain syndrome G89.4 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 [address] [place] [id number] [address] [place] [id number] 16 Apr, 2015 [facility] [address] [place] [id number] [place] [phone] Apr, [place] [address] [place] [id number] [place] [phone] Mar, [place] [address] [address] Mar, [place] [address] [address] Mar, Sore throat J02.9 ; Gastroes ophageal reflux disease without esophagitis K21.9 ; Pseudotumor cerebri G93.2 ; Chronic pain syndrome G89.4 ; Choriocarcinoma C58 ; History of pulmonary embolism Z86.711 ; History of DVT (deep vein thrombosis) Z86.718 ; Anxiety F41.9 and Tachycardia R00.0 [place] [address] [address] Feb, Anxiety 300.00 and Chronic p ain 338.29 [place] [address] [place] [id number] [address] [place] [phone] Feb, [place] [address] [place] [id number] [address] [place] [phone] Feb, [place] [address] [address] Jan, 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 [address] [place] [id number] [address] [place] [phone] Jan, Anxiety 300.00 and Chronic p ain 338.29 [facility] [address] [place] [id number] [place] [address] Jan, [facility] [address] [address] Jan, [facility] [address] [address] Jan, [place] [address] [address] Dec, Weakness 780.79 [place] [address] [address] Dec, prison current use of ant icoagulant therapy V58.61 [place] [address] [address] Dec, Palpitations 785.1 ; Tremor 781.0 ; Weakness 780.79 ; prison current use of anticoagulant therapy V58.61 and Yeast vaginitis 112.1 [place] [address] [place] [id number] [address] [place] [address] Dec, [place] [address] [address] Dec, Cervicalgia 723.1 ; Tachycar yoseph 785.0 ; Pseudotumor cerebri 348.2 and History of venous thromboembolism V12.51 [place] [address] [address] Nov, [place] [address] [address] Nov, [place] [address] [address] Nov, Tachycardia 785.0 ; Pseudotu mor cerebri 348.2 ; Anxiety 300.00 and History of venous thromboembolism V12.51 [facility] [address] [id number] [address] [place] [phone] Nov, [facility] [address] [id number] [address] [place] [id number] 18 Nov, 2014 [facility] [address] [id number] [address] [place] [phone] Nov, [facility] [address] [id number] [address] [place] [phone] Nov, [facility] [address] [facility] [id number] [address] [place] [phone] Nov, [facility] [address] [facility] [id number] [address] [place] [phone] Nov, [facility] [address] [facility] [id number] [address] [place] [phone] Nov, [facility] [address] [facility] [id number] [address] [place] [phone] October, [facility] [address] [facility] [id number] [address] [place] [phone] October, [facility] [address] [place] [id number] [address] [place] [phone] October, Pain in thoracic spine 724.1 and Tachycardia 785.0 [facility] [address] [id number] [address] [place] [phone] October, [facility] [address] [id number] [address] [place] [phone] October, [facility] [address] [facility] [id number] [address] [place] [phone] 14 Sep, 2014 [facility] [address] [facility] [id number] [address] [place] [phone] Sep, [facility] [address] [id number] [facility] [place] [address] Aug, [facility] [address] [id number] [address] [place] [address], [place] [address] Aug, [facility] [address] [id number] [address] [place] [address], [place] [address] Aug, [facility] [address] [id number] [address] [place] [address], [place] [address] Aug, [facility] [address] [id number] [address] [place] [address], [place] [address] Aug, [facility] [address] [id number] [address] [place] [address], [place] [address] Aug, [facility] [address] [id number] [address] [place] [address], [place] [address] Aug, [facility] [address] [id number] [address] [place] [address], [place] [address] Aug, [facility] [address] [id number] [address] [place] [address], [place] [address] Aug, [facility] [address] [id number] [address] [place] [address], [place] [address] Aug, [facility] [address] [id number] [address] [place] [address], [place] [address] Aug, [facility] [address] [id number] [address] [place] [address], [place] [address] Aug, 2014 [facility] [address] [id number] [address] [place] [address], [place] [address] Jul, [facility] [address] [id number] [address] [place] [address], [place] [address] Jul, [facility] [address] [id number] [address] [place] [address], [place] [address] Jul, [facility] [address] [id number] [address] [place] [address], [place] [address] Jul, [facility] [address] [id number] [address] [place] [address], [place] [address] 23 Jul, 2014 [facility] [address] [id number] [address] [place] [address], [place] [address] 23 Jul, 2014 [facility] [address] [id number] [address] [place] [address], [place] [address] 23 Jul, 2014 [facility] [address] [id number] [address] [place] [address], [place] [address] 23 Jul, 2014 [facility] [address] [id number] [address] [place] [address], [place] [address] 20 Jul, 2014 [facility] [address] [id number] [address] [place] [address], [place] [address] 20 Jul, 2014 [facility] [address] [id number] [address] [place] [address], [place] [address] 19 Jul, 2014 [facility] [address] [id number] [address] [place] [address], [place] [address] 19 Jul, 2014 [facility] [address] [id number] [address] [place] [address], [place] [address] 17 Jul, 2014 [facility] [address] [id number] [address] [place] [address], [place] [address] 17 Jul, 2014 [facility] [address] [id number] [address] [place] [address], [place] [address] 16 Jul, 2014 [facility] [address] [id number] [address] [place] [address], [place] [address] 16 Jul, 2014 [facility] [address] [id number] [address] [place] [address], [place] [address] 16 Jul, 2014 [facility] [address] [id number] [address] [place] [phone] 16 Jul, 2014 [facility] [address] [id number] [address] [place] [phone] 13 Jul, 2014 [facility] [address] [id number] [address] [place] [address], [place] [address] Jul, [facility] [address] [id number] [address] [place] [address], [place] [address] Jul, [facility] [address] [id number] [address] [place] [address], [place] [address] Jul, 2014 [facility] [address] [id number] [address] [place] [address], [place] [address] Jul, 2014 [facility] [address] [id number] [address] [place] [address], [place] [address] Jul, [facility] [address] [id number] [address] [place] [address], [place] [address] Jul, [facility] [address] [id number] [address] [place] [address], [place] [address] Jul, [facility] [address] [id number] [address] [place] [address], [place] [address] Jul, [facility] [address] [id number] [address] [place] [address], [place] [address] Jul, [facility] [address] [id number] [address] [place] [address], [place] [address] Jul, [facility] [address] [id number] [address] [place] [address], [place] [address] Jul, [facility] [address] [id number] [address] [place] [address], [place] [address] Jun, [facility] [address] [id number] [address] [place] [address], [place] [address] Jun, [facility] [address] [id number] [address] [place] [address], [place] [address] Jun, [facility] [address] [id number] [address] [place] [address], [place] [address] Jun, [facility] [address] [id number] [address] [place] [address], [place] [address] Jun, [facility] [address] [id number] [address] [place] [address], [place] [address] Jun, [facility] [address] [id number] [address] [place] [address], [place] [address] Jun, [facility] [address] [id number] [address] [place] [address], [place] [address] Jun, [facility] [address] [id number] [address] [place] [address], [place] [address] Jun, [facility] [address] [id number] [address] [place] [address], [place] [address] Jun, [facility] [address] [id number] [address] [place] [address], [place] [address] Jun, [facility] [address] [id number] [address] [place] [address], [place] [address] Jun, [facility] [address] [id number] [address] [place] [address], [place] [address] Jun, [facility] [address] [id number] [address] [place] [address], [place] [address] Jun, [facility] [address] [id number] [address] [place] [address], [place] [address] Jun, [facility] [address] [id number] [address] [place] [address], [place] [address] Jun, [facility] [address] [id number] [address] [place] [address], [place] [address] Jun, [facility] [address] [id number] [address] [place] [address], [place] [address] Jun, [facility] [address] [id number] [address] [place] [address], [place] [address] Jun, [facility] [address] [id number] [address] [place] [address], [place] [address] Jun, [facility] [address] [id number] [address] [place] [address], [place] [address] May, [facility] [address] [id number] [address] [place] [address], [place] [address] May, [facility] [address] [id number] [address] [place] [address], [place] [address] May, [facility] [address] [id number] [address] [place] [address], [place] [address] May, [facility] [address] [id number] [address] [place] [address], [place] [address] May, [facility] [address] [id number] [address] [place] [address], [place] [address] May, [facility] [address] [id number] [address] [place] [address], [place] [address] May, [facility] [address] [id number] [address] [place] [address], [place] [address] May, [facility] [address] [id number] [address] [place] [address], [place] [address] May, [facility] [address] [id number] [address] [place] [address], [place] [address] May, [facility] [address] [id number] [address] [place] [address], [place] [address] May, [facility] [address] [id number] [address] [place] [address], [place] [address] 18 May, 2014 [facility] [address] [id number] [address] [place] [address], [place] [address] 18 May, 2014 [facility] [address] [id number] [address] [place] [address], [place] [address] 17 May, 2014 [facility] [address] [id number] [address] [place] [address], [place] [address] 16 May, 2014 [facility] [address] [id number] [address] [place] [address], [place] [address] 16 May, 2014 [facility] [address] [id number] [address] [place] [address], [place] [address] 15 May, 2014 [facility] [address] [id number] [address] [place] [address], [place] [address] 15 May, 2014 [facility] [address] [id number] [address] [place] [address], [place] [address] May, [facility] [address] [id number] [address] [place] [address], [place] [address] May, [facility] [address] [id number] [address] [place] [address], [place] [address] May, [facility] [address] [id number] [address] [place] [address], [place] [address] May, [facility] [address] [id number] [address] [place] [address], [place] [address] May, [facility] [address] [id number] [address] [place] [address], [place] [address] May, [facility] [address] [id number] [address] [place] [address], [place] [address] May, [facility] [address] [id number] [address] [place] [address], [place] [address] May, [facility] [address] [id number] [address] [place] [address], [place] [address] May, [facility] [address] [id number] [address] [place] [address], [place] [address] May, [facility] [address] [id number] [address] [place] [address], [place] [address] May, [facility] [address] [id number] [address] [place] [address], [place] [address] May, [facility] [address] [id number] [address] [place] [address], [place] [address] May, [facility] [address] [id number] [address] [place] [address], [place] [address] May, [facility] [address] [id number] [address] [place] [address], [place] [address] May, [facility] [address] [id number] [address] [place] [address], [place] [address] May, [facility] [address] [id number] [address] [place] [address], [place] [address] Apr, [facility] [address] [id number] [address] [place] [address], [place] [address] Apr, [facility] [address] [id number] [address] [place] [address], [place] [address] Apr, [facility] [address] [id number] [address] [place] [address], [place] [address] Apr, [facility] [address] [id number] [address] [place] [address], [place] [address] Apr, [facility] [address] [id number] [address] [place] [address], [place] [address] Apr, [facility] [address] [id number] [address] [place] [address], [place] [address] Apr, [facility] [address] [id number] [address] [place] [address], [place] [address] Apr, [facility] [address] [id number] [address] [place] [address], [place] [address] Apr, [facility] [address] [id number] [address] [place] [address], [place] [address] Apr, [facility] [address] [id number] [address] [place] [address], [place] [address] Mar, [facility] [address] [id number] [address] [place] [address], [place] [address] Mar, [facility] [address] [id number] [address] [place] [address] [address] Mar, [facility] [address] [id number] [address] [place] [address], [place] [address] 31 Mar, 2013 [facility] [address] [id number] [address] [place] [address], [place] [address] Mar, [facility] [address] [id number] [address] [place] [address], [place] [id number] 30 Mar, 2014 [facility] [address] [id number] [address] [place] [address], [place] [address] Mar, [facility] [address] [id number] [address] [place] [address], [place] [address] Mar, [facility] [address] [id number] [address] [place] [address], [place] [address] Mar, [facility] [address] [id number] [address] [place] [address], [place] [address] Mar, [facility] [address] [id number] [address] [place] [id number] Mar, [facility] [address] [id number] [address] [place] [id number] Mar, [facility] [address] [id number] [address] [place] [id number] Mar, [facility] [address] [id number] [address] [place] [id number] Mar, 2013 [facility] [address] [id number] [address] [place] [id number] Mar, 2013 [facility] [address] [id number] [address] [place] [id number] Mar, [facility] [address] [id number] [address] [place] [id number] Mar, [facility] [address] [id number] [address] [place] [id number] Mar, 2013 [facility] [address] [id number] [address] [place] [address], [place] [id number] 02 Mar, 2013 [facility] [address] [id number] [address] [place] [address], [place] [address] 02 Mar, 2013 [facility] [address] [id number] [address] [place] [address], [place] [id number] 05 Sep, 2013 [facility] [address] [id number] [address] [place] [address], [place] [id number] 05 Sep, 2013 [facility] [address] [id number] [address] [place] [address], [place] [address] 04 Sep, 2013 [facility] [address] [id number] [address] [place] [address], [place] [address] 04 Sep, 2013 [facility] [address] [id number] [address] [place] [address], [place] [id number] 03 Feb, 2013 [facility] [address] [id number] [address] [place] [address], [place] [address] 03 Feb, 2013 [facility] [address] [id number] [address] [place] [address], [place] [id number] 02 Feb, 2013 [facility] [address] [id number] [address] [place] [address], [place] [address] Feb, 2013 [facility] [address] [id number] [address] [place] [address], [place] [id number] 02 Feb, 2013 [facility] [address] [id number] [address] [place] [address], [place] [id number] Feb, 2013 [facility] [address] [id number] [address] [place] [address], [place] [address] Jan, [facility] [address] [id number] [address] [place] [address], [place] [id number] Jan, [facility] [address] [id number] [address] [place] [address], [place] [id number] Jan, [facility] [address] [id number] [address] [place] [address], [place] [id number] Jan, [facility] [address] [id number] [facility] [place] [id number] Jan, [facility] [address] [id number] [address] [place] [address], [place] [address] Jan, [facility] [address] [id number] [address] [place] [address], [place] [address] Jan, [facility] [address] [id number] [address] [place] [address], [place] [id number] Jan, [facility] [address] [id number] [address] [place] [address], [place] [address] Jan, [facility] [address] [id number] [address] [place] [address], [place] [id number] Jan, [facility] [address] [id number] [address] [place] [address], [place] [id number] Jan, [facility] [address] [id number] [address] [place] [address], [place] [address] Jan, [facility] [address] [id number] [address] [place] [address], [place] [id number] Dec, [facility] [address] [id number] [address] [place] [address], [place] [address] Dec, [facility] [address] [id number] [address] [place] [address], [place] [address] Dec, [facility] [address] [id number] [address] [place] [address], [place] [id number] Dec, [facility] [address] [id number] [address] [place] [address], [place] [address] Dec, [facility] [address] [id number] [address] [place] [address], [place] [id number] Dec, [facility] [address] [id number] [address] [place] [address], [place] [address] Dec, [facility] [address] [id number] [address] [place] [address], [place] [address] Dec, [facility] [address] [id number] [facility] [place] [id number] Dec, [facility] [facility] [address] [id number] [address] [place] [address], [place] [address] Dec, [facility] [address] [id number] [address] [place] [address], [place] [address] Dec, [facility] [address] [id number] [address] [place] [address], [place] [address] Dec, [facility] [address] [id number] [address] [place] [address], [place] [address] Nov, [facility] [address] [id number] [address] [place] [address], [place] [address] Nov, [facility] [address] [id number] [address] [place] [address], [place] [address] Nov, [facility] [address] [id number] [address] [place] [address], [place] [address] Nov, [facility] [address] [id number] [address] [place] [address], [place] [address] Nov, [facility] [address] [id number] [address] [place] [address], [place] [address] Nov, [facility] [address] [id number] [address] [place] [address], [place] [address] Nov, [facility] [address] [id number] [address] [place] [address], [place] [address] Nov, [facility] [address] [id number] [address] [place] [address], [place] [address] Nov, [facility] [address] [id number] [address] [place] [address], [place] [address] Nov, [facility] [address] [id number] [address] [place] [address], [place] [address] Nov, [facility] [address] [id number] [facility] [place] [address] Nov, [facility] [address] [id number] [address] [place] [address], [place] [address] Nov, [facility] [address] [id number] [address] [place] [address], [place] [address] Nov, [facility] [address] [id number] [address] [place] [address], [place] [address] October, [facility] [address] [id number] [address] [place] [address], [place] [address] October, [facility] [address] [id number] [address] [place] [address], [place] [address] October, [facility] [address] [id number] [address] [place] [address], [place] [address] October, [facility] [address] [id number] [address] [place] [address], [place] [address] October, [facility] [address] [id number] [address] [place] [address], [place] [address] October, [facility] [address] [id number] [address] [place] [address], [place] [address] October, [facility] [address] [id number] [address] [place] [address], [place] [address] October, [facility] [address] [id number] [address] [place] [address], [place] [address] October, [facility] [address] [id number] [address] [place] [address], [place] [address] October, [facility] [address] [id number] [address] [place] [address], [place] [address] October, [facility] [address] [id number] [address] [place] [address], [place] [address] October, [facility] [address] [id number] [address] [place] [address], [place] [address] Sep, [facility] [address] [id number] [facility] [place] [address] Sep, [facility] [address] [id number] [address] [place] [address], [place] [address] Sep, [facility] [address] [id number] [facility] [place] [address] Sep, [facility] [address] [id number] [address] [place] [address], [place] [address] Sep, [facility] [address] [id number] [address] [place] [address], [place] [address] Sep, [facility] [address] [id number] [address] [place] [address], [place] [address] Aug, [facility] [address] [id number] [address] [place] [address], [place] [address] Aug, [facility] [address] [id number] [address] [place] [address], [place] [address] Aug, [facility] [address] [id number] [address] [place] [address], [place] [address] Aug, [facility] [address] [id number] [address] [place] [address], [place] [address] Aug, [facility] [address] [id number] [address] [place] [address], [place] [address] Aug, [facility] [address] [id number] [address] [place] [address], [place] [address] Jul, [facility] [address] [id number] [address] [place] [address], [place] [address] Jul, [facility] [address] [id number] [address] [place] [address], [place] [address] Jul, [facility] [address] [id number] [address] [place] [address], [place] [address] Jul, [facility] [address] [id number] [address] [place] [address], [place] [address] 13 Jul, 2013 [facility] [address] [id number] [address] [place] [address], [place] [address] Jul, [facility] [address] [id number] [address] [place] [address], [place] [address] Jul, [facility] [address] [id number] [address] [place] [address], [place] [address] Jul, [facility] [address] [id number] [address] [place] [address], [place] [address] Jul, [facility] [address] [id number] [address] [place] [address], [place] [address] Jul, [facility] [address] [id number] [address] [place] [address], [place] [address] Jun, [facility] [address] [id number] [address] [place] [address], [place] [address] Jun, [facility] [address] [id number] [address] [place] [address], [place] [address] Jun, [facility] [address] [id number] [address] [place] [address], [place] [address] Jun, [facility] [address] [id number] [address] [place] [address], [place] [address] Jun, [facility] [address] [id number] [address] [place] [address], [place] [address] Jun, [facility] [address] [id number] [address] [place] [address], [place] [address] Jun, [facility] [address] [id number] [address] [place] [address], [place] [address] Jun, [facility] [address] [id number] [address] [place] [address], [place] [address] May, [facility] [address] [id number] [address] [place] [address], [place] [address] May, [facility] [address] [id number] [address] [place] [address], [place] [address] May, [facility] [address] [id number] [address] [place] [address], [place] [address] May, [facility] [address] [id number] [address] [place] [address], [place] [address] May, [facility] [address] [id number] [address] [place] [address], [place] [address] May, [facility] [address] [id number] [address] [place] [address], [place] [address] May, [facility] [address] [id number] [address] [place] [address], [place] [address] May, [facility] [address] [id number] [address] [place] [address], [place] [address] Apr, [facility] [address] [id number] [address] [place] [id number] Apr, [facility] [address] [id number] [address] [place] [address], [place] [address] Apr, [facility] [address] [id number] [address] [place] [address] Apr, [facility] [address] [id number] [address] [place] [address] Apr, [facility] [address] [id number] [address] [place] [id number] Apr, [facility] [address] [id number] [address] [place] [address], [place] [address] Mar, [facility] [address] [id number] [address] [place] [address] Mar, [facility] [address] [id number] [address] [place] [address], [place] [address] Mar, [facility] [address] [id number] [address] [place] [address], [place] [address] Mar, [facility] [address] [id number] [address] [place] [address], [place] [address] Mar, [facility] [address] [id number] [address] [place] [address], [place] [address] Mar, [facility] [address] [id number] [address] [place] [address], [place] [address] Mar, [facility] [address] [id number] [address] [place] [address], [place] [address] 30 Feb, 2012 [facility] [address] [id number] [address] [place] [address], [place] [address] 30 Feb, 2013 [facility] [address] [id number] [address] [place] [address], [place] [address] 27 Feb, 2013 [facility] [address] [id number] [address] [place] [address], [place] [address] Feb, 2012 [facility] [address] [id number] [address] [place] [address], [place] [address] Feb, [facility] [address] [id number] [address] [place] [address], [place] [address] Feb, [facility] [address] [id number] [address] [place] [address], [place] [address] Jan, [facility] [address] [id number] [address] [place] [address], [place] [address] Jan, [facility] [address] [id number] [address] [place] [address], [place] [address] Jan, [facility] [address] [id number] [address] [place] [address], [place] [address] Jan, [facility] [address] [id number] [address] [place] [address], [place] [address] Jan, [facility] [address] [id number] [address] [place] [address], [place] [address] Jan, [facility] [address] [id number] [address] [place] [address], [place] [address] Jan, [facility] [address] [id number] [address] [place] [address], [place] [address] Jan, [facility] [address] [id number] [address] [place] [address], [place] [address] Jan, [facility] [address] [id number] [address] [place] [address], [place] [address] Dec, [facility] [address] [id number] [address] [place] [address], [place] [address] Dec, [facility] [address] [id number] [address] [place] [address], [place] [address] Dec, [facility] [address] [id number] [address] [place] [address], [place] [address] Dec, [facility] [address] [id number] [address] [place] [address], [place] [address] Dec, [facility] [address] [id number] [address] [place] [address], [place] [address] Dec, [facility] [address] [id number] [address] [place] [address], [place] [address] Dec, [facility] [address] [id number] [address] [place] [address], [place] [address] Dec, [facility] [address] [id number] [address] [place] [address], [place] [address] Dec, [facility] [address] [id number] [address] [place] [address], [place] [address] Dec, [facility] [address] [id number] [address] [place] [address], [place] [address] Dec, [facility] [address] [id number] [address] [place] [address], [place] [address] Dec, [facility] [address] [id number] [address] [place] [address], [place] [address] Dec, [facility] [address] [id number] [address] [place] [address], [place] [address] Nov, [facility] [address] [id number] [address] [place] [address], [place] [address] Nov, [facility] [address] [id number] [address] [place] [address], [place] [address] Nov, [facility] [address] [id number] [address] [place] [address], [place] [address] Nov, [facility] [address] [id number] [address] [place] [address], [place] [address] October, [facility] [address] [id number] [address] [place] [address], [place] [address] October, [facility] [address] [id number] [address] [place] [address], [place] [address] October, [facility] [address] [id number] [address] [place] [address], [place] [address] October, [facility] [address] [id number] [address] [place] [address], [place] [address] October, [facility] [address] [id number] [address] [place] [address], [place] [address] October, [facility] [address] [id number] [address] [place] [address], [place] [address] Sep, [facility] [address] [id number] [address] [place] [address], [place] [address] Sep, [facility] [address] [id number] [address] [place] [address], [place] [address] Sep, [facility] [address] [id number] [address] [place] [address], [place] [address] Sep, [facility] [address] [id number] [address] [place] [address], [place] [address] Sep, [facility] [address] [id number] [facility] [place] [address] 16 Sep, 2012 [facility] [address] [id number] [address] [place] [address], [place] [address] 12 Sep, 2012 [facility] [address] [id number] [address] [place] [address], [place] [address] Sep, [facility] [address] [id number] [address] [place] [address], [place] [address] Sep, [facility] [address] [id number] [address] [place] [address], [place] [address] Sep, [facility] [address] [id number] [address] [place] [address], [place] [address] Sep, [facility] [address] [id number] [address] [place] [address], [place] [address] Aug, [facility] [address] [id number] [address] [place] [address], [place] [address] 25 Aug, 2012 [facility] [address] [id number] [address] [place] [address], [place] [address] 25 Aug, 2012 [facility] [address] [id number] [address] [place] [address], [place] [address] 21 Aug, 2012 [facility] [address] [id number] [address] [place] [address], [place] [address] 19 Aug, 2012 [facility] [address] [id number] [address] [place] [address], [place] [address] 18 Aug, 2012 [facility] [address] [id number] [address] [place] [address], [place] [address] 17 Aug, 2012 [facility] [address] [id number] [address] [place] [address], [place] [address] 15 Aug, 2012 [facility] [address] [id number] [address] [place] [address], [place] [address] 15 Aug, 2012 [facility] [address] [id number] [address] [place] [address], [place] [address] Aug, [facility] [address] [id number] [address] [place] [address], [place] [address] Aug, [facility] [address] [id number] [address] [place] [address], [place] [address] Aug, [facility] [address] [id number] [address] [place] [address], [place] [address] Jul, [facility] [address] [id number] [address] [place] [address], [place] [address] Jul, [facility] [address] [id number] [address] [place] [address], [place] [address] Jul, [facility] [address] [id number] [address] [place] [address], [place] [address] Jul, [facility] [address] [id number] [address] [place] [address], [place] [address] Jul, [facility] [address] [id number] [address] [place] [address], [place] [address] Jul, [facility] [address] [id number] [address] [place] [address], [place] [address] Jul, [facility] [address] [id number] [address] [place] [address], [place] [address] Jul, [facility] [address] [id number] [address] [place] [address], [place] [address] Jul, [facility] [address] [id number] [address] [place] [address], [place] [address] Jul, [facility] [address] [id number] [address] [place] [address], [place] [address] May, [facility] [id number] [id number] [id number] May, [facility] [address] [id number] [address] [place] [address], [place] [address] May, [facility] [address] [id number] [address] [place] [address] May, [facility] [address] [facility] [id number] [address] [place] [address] May, [facility] [address] [facility] [id number] [address] [place] [address] Apr, [facility] [address] [id number] [place] [id number] Apr, [facility] [address] [facility] [id number] [address] [place] [address] Apr, [facility] [address] [facility] [id number] [address] [place] [address] Mar, [facility] [address] [id number] [place] [id number] Mar, [facility] [address] [facility] [id number] [address] [place] [address] Mar, [facility] [address] [id number] [place] [id number] Feb, [facility] [address] [facility] [id number] [address] [place] [id number] Feb, [facility] [address] [facility] [id number] [address] [place] [address] Feb, [facility] [place] [address] [id number] [place] [id number] Feb, [facility] [address] [id number] [place] [id number] Feb, [facility] [address] [id number] [place] [id number] Jan, [facility] [address] [id number] [address] [place] [address], [place] [id number] Jan, [facility] [address] [id number] [place] [id number] Jan, [facility] [address] [id number] [place] [id number] Jan, [facility] [address] [id number] [place] [id number] Jan, [facility] [address] [facility] [id number] [address] [place] [address], [place] [id number] Jan, [facility] [address] [facility] [id number] [address] [place] [address], [place] [id number] Jan, [facility] [address] [facility] [id number] [address] [place] [address], [place] [id number] Aug, [facility] [address] [id number] [place] [id number] Aug, [facility] [address] [facility] [id number] [address] [place] [address], [place] [id number] Jul, [facility] [address] [facility] [id number] [address] [place] [address], [place] [id number] Jul, [facility] [address] [facility] [id number] [address] [place] [address], [place] [id number] Jul, [facility] [address] [id number] [place] [id number] Jul, [facility] [address] [facility] [id number] [address] [place] [address], [place] [id number] Jul, [facility] [address] [id number] [place] [id number] Jul, [facility] [address] [facility] [id number] [address] [place] [address], [place] [id number] Jul, [facility] [address] [id number] [place] [id number] Jul, [facility] [address] [id number] [place] [id number] Jul, [facility] [address] [id number] [place] [id number] Jul, [facility] [address] [facility] [id number] [address] [place] [address], [place] [id number] May, [facility] [address] [id number] [address] [place] [id number] May, [facility] [address] [id number] [address] [place] [id number] May, [facility] [address] [id number] [address] [place] [id number] Apr, [facility] [address] [id number] [address] [place] [id number] Jan, [facility] [address] [id number] [address] [place] [id number] Jan, [facility] [address] [id number] [address] [place] [id number] Dec, [facility] [address] [id number] [address] [place] [id number] Dec, [facility] [address] [id number] [address] [place] [id number] May, [facility] [address] [id number] [address] [place] [id number] Mar, [facility] [address] [id number] [address] [place] [id number] Mar, [facility] [address] [id number] [address] [place] [id number] Jan, IMMUNIZATIONS No Known Immunizations SOCIAL HISTORY [...]
--- OUTSIDE RECORDS SUMMARY | 2020-01-28 12:56 | XMS REPORT ---
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 136976452 Problem History of venous thromboembolism V12.51 Active 835763076 Problem Cellulitis of unspecified part of limb L03.119 Active 558617974 Problem Gastroesophageal reflux disease without esophagitis K21.9 Active 246249018 Problem History of pulmonary embolism Z86.711 Active 129414851 Problem Pseudotumor cerebri G93.2 Active 88554465 Problem History of DVT (deep vein thrombosis) Z86.718 Active 371904008 ALLERGIES No Information ENCOUNTERS Encounter Location Date Diagnosis [place] [id number] [facility] [id number] [address] [place] [address] Apr, retirement (current) use of 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 Z79.01 [facility] [address] [facility] [id number] [address] [place] [address] Apr, retirement 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.01 [facility] [address] [facility] [id number] [address] [place] [address] Apr, Cellulitis of unspecified pa rt of limb L03.119 ; Allergic contact dermatitis due to adhesives L23.1 and Chronic pain syndrome G89.4 [facility] [address] [facility] [id number] [address] [place] [address] Apr, [place] [address] [place] [id number] [address] [place] [address] Apr, 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 ; Cellulitis of unspecified part of limb L03.119 ; Chronic pain syndrome G89.4 and Anxiety F41.9 [facility] [address] [place] [id number] [address] [place] [address] 16 Apr, 2015 [facility] [address] [place] [id number] [place] [address] Apr, [place] [address] [place] [id number] [place] [address] Mar, [place] [address] [address] Mar, [place] [address] [address] Mar, Sore throat J02.9 ; Gastroes ophageal reflux disease without esophagitis K21.9 ; Pseudotumor cerebri G93.2 ; Chronic pain syndrome G89.4 ; Choriocarcinoma C58 ; History of pulmonary embolism Z86.711 ; History of DVT (deep vein thrombosis) Z86.718 ; Anxiety F41.9 and Tachycardia R00.0 [place] [address] [address] Feb, Anxiety 300.00 and Chronic p ain 338.29 [place] [address] [place] [id number] [address] [place] [address] Feb, [place] [address] [place] [id number] [address] [place] [address] Feb, [place] [address] [address] Jan, 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.61 and Dysuria 788.1 [place] [address] [place] [id number] [place] [address] Jan, Dysuria 788.1 [facility] [address] [place] [id number] [address] [place] [address] Jan, Anxiety 300.00 and Chronic p ain 338.29 [facility] [address] [place] [id number] [place] [address] Jan, [facility] [address] [address] Jan, [facility] [address] [address] Jan, [place] [address] [address] Dec, Weakness 780.79 [place] [address] [address] Dec, retirement current use of ant icoagulant therapy V58.61 [place] [address] [address] Dec, Palpitations 785.1 ; Tremor 781.0 ; Weakness 780.79 ; retirement current use of anticoagulant therapy V58.61 and Yeast vaginitis 112.1 [place] [address] [place] [id number] [address] [place] [address] Dec, [place] [address] [address] Dec, Cervicalgia 723.1 ; Tachycar yoseph 785.0 ; Pseudotumor cerebri 348.2 and History of venous thromboembolism V12.51 [place] [address] [address] Nov, [place] [address] [address] Nov, [place] [address] [address] Nov, Tachycardia 785.0 ; Pseudotu mor cerebri 348.2 ; Anxiety 300.00 and History of venous thromboembolism V12.51 [facility] [address] [id number] [address] [place] [address] Nov, [facility] [address] [id number] [address] [place] [address] 18 Nov, 2014 [facility] [address] [id number] [address] [place] [address] Nov, [facility] [address] [id number] [address] [place] [address] Nov, [facility] [address] [facility] [id number] [address] [place] [address] Nov, [facility] [address] [facility] [id number] [address] [place] [address] Nov, [facility] [address] [facility] [id number] [address] [place] [address] Nov, [facility] [address] [facility] [id number] [address] [place] [phone] October, [facility] [address] [facility] [id number] [address] [place] [address] October, [facility] [address] [place] [id number] [address] [place] [address] October, Pain in thoracic spine 724.1 and Tachycardia 785.0 [facility] [address] [id number] [address] [place] [address] October, [facility] [address] [id number] [address] [place] [address] October, [facility] [address] [facility] [id number] [address] [place] [phone] 14 Sep, 2014 [facility] [address] [facility] [id number] [address] [place] [phone] Sep, [facility] [address] [id number] [facility] [place] [address] Aug, [facility] [address] [id number] [address] [place] [address], [place] [address] Aug, [facility] [address] [id number] [address] [place] [address], [place] [address] Aug, [facility] [address] [id number] [address] [place] [address], [place] [address] Aug, [facility] [address] [id number] [address] [place] [address], [place] [address] Aug, [facility] [address] [id number] [address] [place] [address], [place] [address] Aug, [facility] [address] [id number] [address] [place] [address], [place] [address] Aug, [facility] [address] [id number] [address] [place] [address], [place] [address] Aug, [facility] [address] [id number] [address] [place] [address], [place] [address] Aug, [facility] [address] [id number] [address] [place] [address], [place] [address] Aug, [facility] [address] [id number] [address] [place] [address], [place] [address] Aug, [facility] [address] [id number] [address] [place] [address], [place] [address] Aug, 2014 [facility] [address] [id number] [address] [place] [address], [place] [address] Jul, [facility] [address] [id number] [address] [place] [address], [place] [address] Jul, [facility] [address] [id number] [address] [place] [address], [place] [address] Jul, [facility] [address] [id number] [address] [place] [address], [place] [address] Jul, [facility] [address] [id number] [address] [place] [address], [place] [address] 23 Jul, 2014 [facility] [address] [id number] [address] [place] [address], [place] [address] 23 Jul, 2014 [facility] [address] [id number] [address] [place] [address], [place] [address] 23 Jul, 2014 [facility] [address] [id number] [address] [place] [address], [place] [address] 23 Jul, 2014 [facility] [address] [id number] [address] [place] [address], [place] [address] 20 Jul, 2014 [facility] [address] [id number] [address] [place] [address], [place] [address] 20 Jul, 2014 [facility] [address] [id number] [address] [place] [address], [place] [address] 19 Jul, 2014 [facility] [address] [id number] [address] [place] [address], [place] [address] 19 Jul, 2014 [facility] [address] [id number] [address] [place] [address], [place] [address] 17 Jul, 2014 [facility] [address] [id number] [address] [place] [address], [place] [address] 17 Jul, 2014 [facility] [address] [id number] [address] [place] [address], [place] [address] 16 Jul, 2014 [facility] [address] [id number] [address] [place] [address], [place] [address] 16 Jul, 2014 [facility] [address] [id number] [address] [place] [address], [place] [address] 16 Jul, 2014 [facility] [address] [id number] [address] [place] [address] 16 Jul, 2014 [facility] [address] [id number] [address] [place] [address] 13 Jul, 2014 [facility] [address] [id number] [address] [place] [address], [place] [address] Jul, [facility] [address] [id number] [address] [place] [address], [place] [address] Jul, [facility] [address] [id number] [address] [place] [address], [place] [address] Jul, 2014 [facility] [address] [id number] [address] [place] [address], [place] [address] Jul, 2014 [facility] [address] [id number] [address] [place] [address], [place] [address] Jul, [facility] [address] [id number] [address] [place] [address], [place] [address] Jul, [facility] [address] [id number] [address] [place] [address], [place] [address] Jul, [facility] [address] [id number] [address] [place] [address], [place] [address] Jul, [facility] [address] [id number] [address] [place] [address], [place] [address] Jul, [facility] [address] [id number] [address] [place] [address], [place] [address] Jul, [facility] [address] [id number] [address] [place] [address], [place] [address] Jul, [facility] [address] [id number] [address] [place] [address], [place] [address] Jun, [facility] [address] [id number] [address] [place] [address], [place] [address] Jun, [facility] [address] [id number] [address] [place] [address], [place] [address] Jun, [facility] [address] [id number] [address] [place] [address], [place] [address] Jun, [facility] [address] [id number] [address] [place] [address], [place] [address] Jun, [facility] [address] [id number] [address] [place] [address], [place] [address] Jun, [facility] [address] [id number] [address] [place] [address], [place] [address] Jun, [facility] [address] [id number] [address] [place] [address], [place] [address] Jun, [facility] [address] [id number] [address] [place] [address], [place] [address] Jun, [facility] [address] [id number] [address] [place] [address], [place] [address] Jun, [facility] [address] [id number] [address] [place] [address], [place] [address] Jun, [facility] [address] [id number] [address] [place] [address], [place] [address] Jun, [facility] [address] [id number] [address] [place] [address], [place] [address] Jun, [facility] [address] [id number] [address] [place] [address], [place] [address] Jun, [facility] [address] [id number] [address] [place] [address], [place] [address] Jun, [facility] [address] [id number] [address] [place] [address], [place] [address] Jun, [facility] [address] [id number] [address] [place] [address], [place] [address] Jun, [facility] [address] [id number] [address] [place] [address], [place] [address] Jun, [facility] [address] [id number] [address] [place] [address], [place] [address] Jun, [facility] [address] [id number] [address] [place] [address], [place] [address] Jun, [facility] [address] [id number] [address] [place] [address], [place] [address] May, [facility] [address] [id number] [address] [place] [address], [place] [address] May, [facility] [address] [id number] [address] [place] [address], [place] [address] May, [facility] [address] [id number] [address] [place] [address], [place] [address] May, [facility] [address] [id number] [address] [place] [address], [place] [address] May, [facility] [address] [id number] [address] [place] [address], [place] [address] May, [facility] [address] [id number] [address] [place] [address], [place] [address] May, [facility] [address] [id number] [address] [place] [address], [place] [address] May, [facility] [address] [id number] [address] [place] [address], [place] [address] May, [facility] [address] [id number] [address] [place] [address], [place] [address] May, [facility] [address] [id number] [address] [place] [address], [place] [address] May, [facility] [address] [id number] [address] [place] [address], [place] [address] 18 May, 2014 [facility] [address] [id number] [address] [place] [address], [place] [address] 18 May, 2014 [facility] [address] [id number] [address] [place] [address], [place] [address] 17 May, 2014 [facility] [address] [id number] [address] [place] [address], [place] [address] 16 May, 2014 [facility] [address] [id number] [address] [place] [address], [place] [address] 16 May, 2014 [facility] [address] [id number] [address] [place] [address], [place] [address] 15 May, 2014 [facility] [address] [id number] [address] [place] [address], [place] [address] 15 May, 2014 [facility] [address] [id number] [address] [place] [address], [place] [address] May, [facility] [address] [id number] [address] [place] [address], [place] [address] May, [facility] [address] [id number] [address] [place] [address], [place] [address] May, [facility] [address] [id number] [address] [place] [address], [place] [address] May, [facility] [address] [id number] [address] [place] [address], [place] [address] May, [facility] [address] [id number] [address] [place] [address], [place] [address] May, [facility] [address] [id number] [address] [place] [address], [place] [address] May, [facility] [address] [id number] [address] [place] [address], [place] [address] May, [facility] [address] [id number] [address] [place] [address], [place] [address] May, [facility] [address] [id number] [address] [place] [address], [place] [address] May, [facility] [address] [id number] [address] [place] [address], [place] [address] May, [facility] [address] [id number] [address] [place] [address], [place] [address] May, [facility] [address] [id number] [address] [place] [address], [place] [address] May, [facility] [address] [id number] [address] [place] [address], [place] [address] May, [facility] [address] [id number] [address] [place] [address], [place] [address] May, [facility] [address] [id number] [address] [place] [address], [place] [address] May, [facility] [address] [id number] [address] [place] [address], [place] [address] Apr, [facility] [address] [id number] [address] [place] [address], [place] [address] Apr, [facility] [address] [id number] [address] [place] [address], [place] [address] Apr, [facility] [address] [id number] [address] [place] [address], [place] [address] Apr, [facility] [address] [id number] [address] [place] [address], [place] [address] Apr, [facility] [address] [id number] [address] [place] [address], [place] [address] Apr, [facility] [address] [id number] [address] [place] [address], [place] [address] Apr, [facility] [address] [id number] [address] [place] [address], [place] [address] Apr, [facility] [address] [id number] [address] [place] [address], [place] [address] Apr, [facility] [address] [id number] [address] [place] [address], [place] [address] Apr, [facility] [address] [id number] [address] [place] [address], [place] [address] Mar, [facility] [address] [id number] [address] [place] [address], [place] [address] Mar, [facility] [address] [id number] [address] [place] [address] [address] Mar, [facility] [address] [id number] [address] [place] [address], [place] [address] 31 Mar, 2013 [facility] [address] [id number] [address] [place] [address], [place] [address] Mar, [facility] [address] [id number] [address] [place] [address], [place] [address] 30 Mar, 2014 [facility] [address] [id number] [address] [place] [address], [place] [address] Mar, [facility] [address] [id number] [address] [place] [address], [place] [address] Mar, [facility] [address] [id number] [address] [place] [address], [place] [address] Mar, [facility] [address] [id number] [address] [place] [address], [place] [address] Mar, [facility] [address] [id number] [address] [place] [id number] Mar, [facility] [address] [id number] [address] [place] [id number] Mar, [facility] [address] [id number] [address] [place] [id number] Mar, [facility] [address] [id number] [address] [place] [id number] Mar, 2013 [facility] [address] [id number] [address] [place] [id number] Mar, 2013 [facility] [address] [id number] [address] [place] [id number] Mar, [facility] [address] [id number] [address] [place] [id number] Mar, [facility] [address] [id number] [address] [place] [id number] Mar, 2013 [facility] [address] [id number] [address] [place] [address], [place] [address] 02 Mar, 2013 [facility] [address] [id number] [address] [place] [address], [place] [address] 02 Mar, 2013 [facility] [address] [id number] [address] [place] [address], [place] [id number] 05 Sep, 2013 [facility] [address] [id number] [address] [place] [address], [place] [id number] 05 Sep, 2013 [facility] [address] [id number] [address] [place] [address], [place] [id number] 04 Sep, 2013 [facility] [address] [id number] [address] [place] [address], [place] [address] 04 Sep, 2013 [facility] [address] [id number] [address] [place] [address], [place] [address] 03 Feb, 2013 [facility] [address] [id number] [address] [place] [address], [place] [address] 03 Feb, 2013 [facility] [address] [id number] [address] [place] [address], [place] [id number] 02 Feb, 2013 [facility] [address] [id number] [address] [place] [address], [place] [address] Feb, 2013 [facility] [address] [id number] [address] [place] [address], [place] [address] 02 Feb, 2013 [facility] [address] [id number] [address] [place] [address], [place] [address] Feb, 2013 [facility] [address] [id number] [address] [place] [address], [place] [address] Jan, [facility] [address] [id number] [address] [place] [address], [place] [address] Jan, [facility] [address] [id number] [address] [place] [address], [place] [address] Jan, [facility] [address] [id number] [address] [place] [address], [place] [id number] Jan, [facility] [address] [id number] [facility] [place] [address] Jan, [facility] [address] [id number] [address] [place] [address], [place] [address] Jan, [facility] [address] [id number] [address] [place] [address], [place] [address] Jan, [facility] [address] [id number] [address] [place] [address], [place] [address] Jan, [facility] [address] [id number] [address] [place] [address], [place] [address] Jan, [facility] [address] [id number] [address] [place] [address], [place] [address] Jan, [facility] [address] [id number] [address] [place] [address], [place] [id number] Jan, [facility] [address] [id number] [address] [place] [address], [place] [address] Jan, [facility] [address] [id number] [address] [place] [address], [place] [address] Dec, [facility] [address] [id number] [address] [place] [address], [place] [id number] Dec, [facility] [address] [id number] [address] [place], [place] [address], [place] [address] Dec, [facility] [address] [id number] [address] [place] [address], [place] [address] Dec, [facility] [address] [id number] [address] [place] [address], [place] [address] Dec, [facility] [address] [id number] [address] [place] [address], [place] [address] Dec, [facility] [address] [id number] [address] [place] [address], [place] [address] Dec, [facility] [address] [id number] [address] [place] [address], [place] [address] Dec, [facility] [address] [id number] [facility] [place] [address] Dec, [facility] [address] [id number] [address] [place] [address], [place] [address] Dec, [facility] [address] [id number] [address] [place] [address], [place] [address] Dec, [facility] [address] [id number] [address] [place] [address], [place] [address] Dec, [facility] [address] [id number] [address] [place] [address], [place] [address] Nov, [facility] [address] [id number] [address] [place] [address], [place] [address] Nov, [facility] [address] [id number] [address] [place] [address], [place] [address] Nov, [facility] [address] [id number] [address] [place] [address], [place] [address] Nov, [facility] [address] [id number] [address] [place] [address], [place] [address] Nov, [facility] [address] [id number] [address] [place] [address], [place] [address] Nov, [facility] [address] [id number] [address] [place] [address], [place] [address] Nov, [facility] [address] [id number] [address] [place] [address], [place] [address] Nov, [facility] [address] [id number] [address] [place] [address], [place] [address] Nov, [facility] [address] [id number] [address] [place] [address], [place] [address] Nov, [facility] [address] [id number] [address] [place] [address], [place] [address] Nov, [facility] [address] [id number] [facility] [place] [address] Nov, [facility] [address] [id number] [address] [place] [address], [place] [address] Nov, [facility] [address] [id number] [address] [place] [address], [place] [address] Nov, [facility] [address] [id number] [address] [place] [address], [place] [address] October, [facility] [address] [id number] [address] [place] [address], [place] [address] October, [facility] [address] [id number] [address] [place] [address], [place] [address] October, [facility] [address] [id number] [address] [place] [address], [place] [address] October, [facility] [address] [id number] [address] [place] [address], [place] [address] October, [facility] [address] [id number] [address] [place] [address], [place] [address] October, [facility] [address] [id number] [address] [place] [address], [place] [address] October, [facility] [address] [id number] [address] [place] [address], [place] [address] October, [facility] [address] [id number] [address] [place] [address], [place] [address] October, [facility] [address] [id number] [address] [place] [address], [place] [address] October, [facility] [address] [id number] [address] [place] [address], [place] [address] October, [facility] [address] [id number] [address] [place] [address], [place] [address] October, [facility] [address] [id number] [address] [place] [address], [place] [address] Sep, [facility] [address] [id number] [facility] [place] [address] Sep, [facility] [address] [id number] [address] [place] [address], [place] [address] Sep, [facility] [address] [id number] [facility] [place] [address] Sep, [facility] [address] [id number] [address] [place] [address], [place] [address] Sep, [facility] [address] [id number] [address] [place] [address], [place] [address] Sep, [facility] [address] [id number] [address] [place] [address], [place] [address] Aug, [facility] [address] [id number] [address] [place] [address], [place] [address] Aug, [facility] [address] [id number] [address] [place] [address], [place] [address] Aug, [facility] [address] [id number] [address] [place] [address], [place] [address] Aug, [facility] [address] [id number] [address] [place] [address], [place] [address] Aug, [facility] [address] [id number] [address] [place] [address], [place] [address] Aug, [facility] [address] [id number] [address] [place] [address], [place] [address] Jul, [facility] [address] [id number] [address] [place] [address], [place] [address] Jul, [facility] [address] [id number] [address] [place] [address], [place] [address] Jul, [facility] [address] [id number] [address] [place] [address], [place] [address] Jul, [facility] [address] [id number] [address] [place] [address], [place] [address] 13 Jul, 2013 [facility] [address] [id number] [address] [place] [address], [place] [address] Jul, [facility] [address] [id number] [address] [place] [address], [place] [address] Jul, [facility] [address] [id number] [address] [place] [address], [place] [address] Jul, [facility] [address] [id number] [address] [place] [address], [place] [address] Jul, [facility] [address] [id number] [address] [place] [address], [place] [address] Jul, [facility] [address] [id number] [address] [place] [address], [place] [address] Jun, [facility] [address] [id number] [address] [place] [address], [place] [address] Jun, [facility] [address] [id number] [address] [place] [address], [place] [address] Jun, [facility] [address] [id number] [address] [place] [address], [place] [address] Jun, [facility] [address] [id number] [address] [place] [address], [place] [address] Jun, [facility] [address] [id number] [address] [place] [address], [place] [address] Jun, [facility] [address] [id number] [address] [place] [address], [place] [address] Jun, [facility] [address] [id number] [address] [place] [address], [place] [address] Jun, [facility] [address] [id number] [address] [place] [address], [place] [address] May, [facility] [address] [id number] [address] [place] [address], [place] [address] May, [facility] [address] [id number] [address] [place] [address], [place] [address] May, [facility] [address] [id number] [address] [place] [address], [place] [address] May, [facility] [address] [id number] [address] [place] [address], [place] [address] May, [facility] [address] [id number] [address] [place] [address], [place] [address] May, [facility] [address] [id number] [address] [place] [address], [place] [address] May, [facility] [address] [id number] [address] [place] [address], [place] [address] May, [facility] [address] [id number] [address] [place] [address], [place] [address] Apr, [facility] [address] [id number] [address] [place] [address] Apr, [facility] [address] [id number] [address] [place] [address], [place] [address] Apr, [facility] [address] [id number] [address] [place] [address] Apr, [facility] [address] [id number] [address] [place] [address] Apr, [facility] [address] [id number] [address] [place] [address] Apr, [facility] [address] [id number] [address] [place] [address], [place] [address] Mar, [facility] [address] [id number] [address] [place] [address] Mar, [facility] [address] [id number] [address] [place] [address], [place] [address] Mar, [facility] [address] [id number] [address] [place] [address], [place] [address] Mar, [facility] [address] [id number] [address] [place] [address], [place] [address] Mar, [facility] [address] [id number] [address] [place] [address], [place] [address] Mar, [facility] [address] [id number] [address] [place] [address], [place] [address] Mar, [facility] [address] [id number] [address] [place] [address], [place] [address] 30 Feb, 2012 [facility] [address] [id number] [address] [place] [address], [place] [address] 30 Feb, 2013 [facility] [address] [id number] [address] [place] [address], [place] [address] 27 Feb, 2013 [facility] [address] [id number] [address] [place] [address], [place] [address] Feb, 2012 [facility] [address] [id number] [address] [place] [address], [place] [address] Feb, [facility] [address] [id number] [address] [place] [address], [place] [address] Feb, [facility] [address] [id number] [address] [place] [address], [place] [address] Jan, [facility] [address] [id number] [address] [place] [address], [place] [address] Jan, [facility] [address] [id number] [address] [place] [address], [place] [address] Jan, [facility] [address] [id number] [address] [place] [address], [place] [address] Jan, [facility] [address] [id number] [address] [place] [address], [place] [address] Jan, [facility] [address] [id number] [address] [place] [address], [place] [address] Jan, [facility] [address] [id number] [address] [place] [address], [place] [address] Jan, [facility] [address] [id number] [address] [place] [address], [place] [address] Jan, [facility] [address] [id number] [address] [place] [address], [place] [address] Jan, [facility] [address] [id number] [address] [place] [address], [place] [address] Dec, [facility] [address] [id number] [address] [place] [address], [place] [address] Dec, [facility] [address] [id number] [address] [place] [address], [place] [address] Dec, [facility] [address] [id number] [address] [place] [address], [place] [address] Dec, [facility] [address] [id number] [address] [place] [address], [place] [address] Dec, [facility] [address] [id number] [address] [place] [address], [place] [address] Dec, [facility] [address] [id number] [address] [place] [address], [place] [address] Dec, [facility] [address] [id number] [address] [place] [address], [place] [address] Dec, [facility] [address] [id number] [address] [place] [address], [place] [address] Dec, [facility] [address] [id number] [address] [place] [address], [place] [address] Dec, [facility] [address] [id number] [address] [place] [address], [place] [address] Dec, [facility] [address] [id number] [address] [place] [address], [place] [address] Dec, [facility] [address] [id number] [address] [place] [address], [place] [address] Dec, [facility] [address] [id number] [address] [place] [address], [place] [address] Nov, [facility] [address] [id number] [address] [place] [address], [place] [address] Nov, [facility] [address] [id number] [address] [place] [address], [place] [address] Nov, [facility] [address] [id number] [address] [place] [address], [place] [address] Nov, [facility] [address] [id number] [address] [place] [address], [place] [address] October, [facility] [address] [id number] [address] [place] [address], [place] [address] October, [facility] [address] [id number] [address] [place] [address], [place] [address] October, [facility] [address] [id number] [address] [place] [address], [place] [address] October, [facility] [address] [id number] [address] [place] [address], [place] [address] October, [facility] [address] [id number] [address] [place] [address], [place] [address] October, [facility] [address] [id number] [address] [place] [address], [place] [address] Sep, [facility] [address] [id number] [address] [place] [address], [place] [address] Sep, [facility] [address] [id number] [address] [place] [address], [place] [address] Sep, [facility] [address] [id number] [address] [place] [address], [place] [address] Sep, [facility] [address] [id number] [address] [place] [address], [place] [address] Sep, [facility] [address] [id number] [facility] [place] [address] 16 Sep, 2012 [facility] [address] [id number] [address] [place] [address], [place] [address] 12 Sep, 2012 [facility] [address] [id number] [address] [place] [address], [place] [address] Sep, [facility] [address] [id number] [address] [place] [address], [place] [address] Sep, [facility] [address] [id number] [address] [place] [address], [place] [address] Sep, [facility] [address] [id number] [address] [place] [address], [place] [address] Sep, [facility] [address] [id number] [address] [place] [address], [place] [address] Aug, [facility] [address] [id number] [address] [place] [address], [place] [address] 25 Aug, 2012 [facility] [address] [id number] [address] [place] [address], [place] [address] 25 Aug, 2012 [facility] [address] [id number] [address] [place] [address], [place] [address] 21 Aug, 2012 [facility] [address] [id number] [address] [place] [address], [place] [address] 19 Aug, 2012 [facility] [address] [id number] [address] [place] [address], [place] [address] 18 Aug, 2012 [facility] [address] [id number] [address] [place] [address], [place] [address] 17 Aug, 2012 [facility] [address] [id number] [address] [place] [address], [place] [address] 15 Aug, 2012 [facility] [address] [id number] [address] [place] [address], [place] [address] 15 Aug, 2012 [facility] [address] [id number] [address] [place] [address], [place] [address] Aug, [facility] [address] [id number] [address] [place] [address], [place] [address] Aug, [facility] [address] [id number] [address] [place] [address], [place] [address] Aug, [facility] [address] [id number] [address] [place] [address], [place] [address] Jul, [facility] [address] [id number] [address] [place] [address], [place] [address] Jul, [facility] [address] [id number] [address] [place] [address], [place] [address] Jul, [facility] [address] [id number] [address] [place] [address], [place] [address] Jul, [facility] [address] [id number] [address] [place] [address], [place] [address] Jul, [facility] [address] [id number] [address] [place] [address], [place] [address] Jul, [facility] [address] [id number] [address] [place] [address], [place] [address] Jul, [facility] [address] [id number] [address] [place] [address], [place] [address] Jul, [facility] [address] [id number] [address] [place] [address], [place] [address] Jul, [facility] [address] [id number] [address] [place] [address], [place] [address] Jul, [facility] [address] [id number] [address] [place] [address], [place] [address] May, [facility] [address] [id number] [id number] May, [facility] [address] [id number] [address] [place] [address], [place] [address] May, [facility] [address] [id number] [address] [place] [address] May, [facility] [address] [facility] [id number] [address] [place] [address] May, [facility] [address] [facility] [id number] [address] [place] [id number] Apr, [facility] [address] [id number] [place] [id number] Apr, [facility] [address] [facility] [id number] [address] [place] [id number] Apr, [facility] [address] [facility] [id number] [address] [place] [id number] Mar, [facility] [address] [id number] [place] [id number] Mar, [facility] [address] [facility] [id number] [address] [place] [id number] Mar, [facility] [address] [id number] [place] [id number] Feb, [facility] [address] [facility] [id number] [address] [place] [id number] Feb, [facility] [address] [facility] [id number] [address] [place] [id number] Feb, [facility] [place] [address] [id number] [place] [id number] Feb, [facility] [address] [id number] [place] [id number] Feb, [facility] [address] [id number] [place] [id number] Jan, [facility] [address] [id number] [address] [place] [address], [place] [id number] Jan, [facility] [place] [address] [id number] [place] [id number] Jan, [facility] [address] [id number] [place] [id number] Jan, [facility] [place] [address] [id number] [place] [id number] Jan, [facility] [address] [facility] [id number] [address] [place] [address], [place] [id number] Jan, [facility] [address] [facility] [id number] [address] [place] [address], [place] [id number] Jan, [facility] [address] [facility] [id number] [address] [place] [address], [place] [id number] Aug, [facility] [address] [id number] [place] [id number] Aug, [facility] [address] [facility] [id number] [address] [place] [address], [place] [id number] Jul, [facility] [address] [facility] [id number] [address] [place] [address], [place] [id number] Jul, [facility] [address] [facility] [id number] [address] [place] [address], [place] [id number] Jul, [facility] [place] [address] [id number] [place] [id number] Jul, [facility] [address] [facility] [id number] [address] [place] [address], [place] [id number] Jul, [facility] [address] [id number] [place] [id number] Jul, [facility] [address] [facility] [id number] [address] [place] [address], [place] [address] Jul, [facility] [place] [address] [id number] [place] [id number] Jul, [facility] [place] [address] [id number] [place] [id number] Jul, [facility] [place] [address] [id number] [place] [id number] Jul, [facility] [address] [facility] [id number] [address] [place] [address], [place] [id number] May, [facility] [address] [id number] [address] [place] [id number] May, [facility] [address] [id number] [address] [place] [id number] May, [facility] [address] [id number] [address] [place] [id number] Apr, [facility] [address] [id number] [address] [place] [id number] Jan, [facility] [address] [id number] [address] [place] [id number] Jan, [facility] [address] [id number] [address] [place] [id number] Dec, [facility] [address] [id number] [address] [place] [phone] Dec, [facility] [address] [id number] [address] [place] [id number] May, [facility] [address] [id number] [address] [place] [id number] Mar, [facility] [address] [id number] [address] [place] [id number] Mar, [facility] [address] [id number] [address] [place] [id number] Jan, IMMUNIZATIONS No Known Immunizations SOCIAL HISTORY [...]
--- OUTSIDE RECORDS SUMMARY | 2020-01-28 12:57 | XMS REPORT ---
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 [id number] [address] [place] [address] Apr, residential (current) use of 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 Z79.01 [facility] [address] [facility] [id number] [address] [place] [address] Apr, residential 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.01 [facility] [address] [facility] [id number] [address] [place] [address] Apr, Cellulitis of unspecified pa rt of limb L03.119 ; Allergic contact dermatitis due to adhesives L23.1 and Chronic pain syndrome G89.4 [facility] [address] 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 ; Cellulitis of unspecified part of limb L03.119 ; Chronic pain syndrome G89.4 and Anxiety F41.9 [facility] [address] [place] [id number] [address] [place] [address] 16 Apr, 2015 [facility] [address] [place] [id number] [place] [address] Apr, [place] [address] [place] [id number] [place] [address] Mar, [place] [address] [address] Mar, [place] [address] [address] Mar, Sore throat J02.9 ; Gastroes ophageal reflux disease without esophagitis K21.9 ; Pseudotumor cerebri G93.2 ; Chronic pain syndrome G89.4 ; Choriocarcinoma C58 ; History of pulmonary embolism Z86.711 ; History of DVT (deep vein thrombosis) Z86.718 ; Anxiety F41.9 and Tachycardia R00.0 [place] [address] [address] Feb, Anxiety 300.00 and Chronic p ain 338.29 [place] [address] [place] [id number] [address] [place] [address] Feb, [place] [address] [place] [id number] [address] [place] [address] Feb, [place] [address] [address] Jan, 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 therapy V58.61 and Dysuria 788.1 [place] [address] [place] [id number] [place] [address] Jan, Dysuria 788.1 [facility] [address] [place] [id number] [address] [place] [address] Jan, Anxiety 300.00 and Chronic p ain 338.29 [facility] [address] [place] [id number] [place] [address] Jan, [facility] [address] [address] Jan, [facility] [address] [address] Jan, [place] [address] [address] Dec, Weakness 780.79 [place] [address] [address] Dec, residential current use of ant icoagulant therapy V58.61 [place] [address] [address] Dec, Palpitations 785.1 ; Tremor 781.0 ; Weakness 780.79 ; residential current use of anticoagulant therapy V58.61 and Yeast vaginitis 112.1 [place] [address] [place] [id number] [address] [place] [address] Dec, [place] [address] [address] Dec, Cervicalgia 723.1 ; Tachycar yoseph 785.0 ; Pseudotumor cerebri 348.2 and History of venous thromboembolism V12.51 [place] [address] [address] Nov, [place] [address] [address] Nov, [place] [address] [address] Nov, Tachycardia 785.0 ; Pseudotu mor cerebri 348.2 ; Anxiety 300.00 and History of venous thromboembolism V12.51 [facility] [address] [id number] [address] [place] [address] Nov, [facility] [address] [id number] [address] [place] [address] 18 Nov, 2014 [facility] [address] [id number] [address] [place] [address] Nov, [facility] [address] [id number] [address] [place] [address] Nov, [facility] [address] [facility] [id number] [address] [place] [address] Nov, [facility] [address] [facility] [id number] [address] [place] [address] Nov, [facility] [address] [facility] [id number] [address] [place] [address] Nov, [facility] [address] [facility] [id number] [address] [place] [address] October, [facility] [address] [facility] [id number] [address] [place] [address] October, [facility] [address] [place] [id number] [address] [place] [address] October, Pain in thoracic spine 724.1 and Tachycardia 785.0 [facility] [address] [id number] [address] [place] [address] October, [facility] [address] [id number] [address] [place] [address] October, [facility] [address] [facility] [id number] [address] [place] [address] 14 Sep, 2014 [facility] [address] [facility] [id number] [address] [place] [address] Sep, [facility] [address] [id number] [facility] [address] Aug, [facility] [address] [id number] [address] [place] [address], [place] [address] Aug, [facility] [address] [id number] [address] [place] [address], [place] [address] Aug, [facility] [address] [id number] [address] [place] [address], [place] [address] Aug, [facility] [address] [id number] [address] [place] [address], [place] [address] Aug, [facility] [address] [id number] [address] [place] [address], [place] [address] Aug, [facility] [address] [id number] [address] [place] [address], [place] [address] Aug, [facility] [address] [id number] [address] [place] [address], [place] [address] Aug, [facility] [address] [id number] [address] [place] [address], [place] [address] Aug, [facility] [address] [id number] [address] [place] [address], [place] [address] Aug, [facility] [address] [id number] [address] [place] [address], [place] [address] Aug, [facility] [address] [id number] [address] [place] [address], [place] [address] Aug, 2014 [facility] [address] [id number] [address] [place] [address], [place] [address] Jul, [facility] [address] [id number] [address] [place] [address], [place] [address] Jul, [facility] [address] [id number] [address] [place] [address], [place] [address] Jul, [facility] [address] [id number] [address] [place] [address], [place] [address] Jul, [facility] [address] [id number] [address] [place] [address], [place] [address] 23 Jul, 2014 [facility] [address] [id number] [address] [place] [address], [place] [address] 23 Jul, 2014 [facility] [address] [id number] [address] [place] [address], [place] [address] 23 Jul, 2014 [facility] [address] [id number] [address] [place] [address], [place] [address] 23 Jul, 2014 [facility] [address] [id number] [address] [place] [address], [place] [address] 20 Jul, 2014 [facility] [address] [id number] [address] [place] [address], [place] [address] 20 Jul, 2014 [facility] [address] [id number] [address] [place] [address], [place] [address] 19 Jul, 2014 [facility] [address] [id number] [address] [place] [address], [place] [address] 19 Jul, 2014 [facility] [address] [id number] [address] [place] [address], [place] [address] 17 Jul, 2014 [facility] [address] [id number] [address] [place] [address], [place] [address] 17 Jul, 2014 [facility] [address] [id number] [address] [place] [address], [place] [address] 16 Jul, 2014 [facility] [address] [id number] [address] [place] [address], [place] [address] 16 Jul, 2014 [facility] [address] [id number] [address] [place] [address], [place] [address] 16 Jul, 2014 [facility] [address] [id number] [address] [place] [address] 16 Jul, 2014 [facility] [address] [id number] [address] [place] [address] 13 Jul, 2014 [facility] [address] [id number] [address] [place] [address], [place] [address] Jul, [facility] [address] [id number] [address] [place] [address], [place] [address] Jul, [facility] [address] [id number] [address] [place] [address], [place] [address] Jul, 2014 [facility] [address] [id number] [address] [place] [address], [place] [address] Jul, 2014 [facility] [address] [id number] [address] [place] [address], [place] [address] Jul, [facility] [address] [id number] [address] [place] [address], [place] [address] Jul, [facility] [address] [id number] [address] [place] [address], [place] [address] Jul, [facility] [address] [id number] [address] [place] [address], [place] [address] Jul, [facility] [address] [id number] [address] [place] [address], [place] [address] Jul, [facility] [address] [id number] [address] [place] [address], [place] [address] Jul, [facility] [address] [id number] [address] [place] [address], [place] [address] Jul, [facility] [address] [id number] [address] [place] [address], [place] [address] Jun, [facility] [address] [id number] [address] [place] [address], [place] [address] Jun, [facility] [address] [id number] [address] [place] [address], [place] [address] Jun, [facility] [address] [id number] [address] [place] [address], [place] [address] Jun, [facility] [address] [id number] [address] [place] [address], [place] [address] Jun, [facility] [address] [id number] [address] [place] [address], [place] [address] Jun, [facility] [address] [id number] [address] [place] [address], [place] [address] Jun, [facility] [address] [id number] [address] [place] [address], [place] [address] Jun, [facility] [address] [id number] [address] [place] [address], [place] [address] Jun, [facility] [address] [id number] [address] [place] [address], [place] [address] Jun, [facility] [address] [id number] [address] [place] [address], [place] [address] Jun, [facility] [address] [id number] [address] [place] [address], [place] [address] Jun, [facility] [address] [id number] [address] [place] [address], [place] [address] Jun, [facility] [address] [id number] [address] [place] [address], [place] [address] Jun, [facility] [address] [id number] [address] [place] [address], [place] [address] Jun, [facility] [address] [id number] [address] [place] [address], [place] [address] Jun, [facility] [address] [id number] [address] [place] [address], [place] [address] Jun, [facility] [address] [id number] [address] [place] [address], [place] [address] Jun, [facility] [address] [id number] [address] [place] [address], [place] [address] Jun, [facility] [address] [id number] [address] [place] [address], [place] [address] Jun, [facility] [address] [id number] [address] [place] [address], [place] [address] May, [facility] [address] [id number] [address] [place] [address], [place] [address] May, [facility] [address] [id number] [address] [place] [address], [place] [address] May, [facility] [address] [id number] [address] [place] [address], [place] [address] May, [facility] [address] [id number] [address] [place] [address], [place] [address] May, [facility] [address] [id number] [address] [place] [address], [place] [address] May, [facility] [address] [id number] [address] [place] [address], [place] [address] May, [facility] [address] [id number] [address] [place] [address], [place] [address] May, [facility] [address] [id number] [address] [place] [address], [place] [address] May, [facility] [address] [id number] [address] [place] [address], [place] [address] May, [facility] [address] [id number] [address] [place] [address], [place] [address] May, [facility] [address] [id number] [address] [place] [address], [place] [address] 18 May, 2014 [facility] [address] [id number] [address] [place] [address], [place] [address] 18 May, 2014 [facility] [address] [id number] [address] [place] [address], [place] [address] 17 May, 2014 [facility] [address] [id number] [address] [place] [address], [place] [address] 16 May, 2014 [facility] [address] [id number] [address] [place] [address], [place] [address] 16 May, 2014 [facility] [address] [id number] [address] [place] [address], [place] [address] 15 May, 2014 [facility] [address] [id number] [address] [place] [address], [place] [address] 15 May, 2014 [facility] [address] [id number] [address] [place] [address], [place] [address] May, [facility] [address] [id number] [address] [place] [address], [place] [address] May, [facility] [address] [id number] [address] [place] [address], [place] [address] May, [facility] [address] [id number] [address] [place] [address], [place] [address] May, [facility] [address] [id number] [address] [place] [address], [place] [address] May, [facility] [address] [id number] [address] [place] [address], [place] [address] May, [facility] [address] [id number] [address] [place] [address], [place] [address] May, [facility] [address] [id number] [address] [place] [address], [place] [address] May, [facility] [address] [id number] [address] [place] [address], [place] [address] May, [facility] [address] [id number] [address] [place] [address], [place] [address] May, [facility] [address] [id number] [address] [place] [address], [place] [address] May, [facility] [address] [id number] [address] [place] [address], [place] [address] May, [facility] [address] [id number] [address] [place] [address], [place] [address] May, [facility] [address] [id number] [address] [place] [address], [place] [address] May, [facility] [address] [id number] [address] [place] [address], [place] [address] May, [facility] [address] [id number] [address] [place] [address], [place] [address] May, [facility] [address] [id number] [address] [place] [address], [place] [address] Apr, [facility] [address] [id number] [address] [place] [address], [place] [address] Apr, [facility] [address] [id number] [address] [place] [address], [place] [address] Apr, [facility] [address] [id number] [address] [place] [address], [place] [address] Apr, [facility] [address] [id number] [address] [place] [address], [place] [address] Apr, [facility] [address] [id number] [address] [place] [address], [place] [address] Apr, [facility] [address] [id number] [address] [place] [address], [place] [address] Apr, [facility] [address] [id number] [address] [place] [address], [place] [address] Apr, [facility] [address] [id number] [address] [place] [address], [place] [address] Apr, [facility] [address] [id number] [address] [place] [address], [place] [address] Apr, [facility] [address] [id number] [address] [place] [address], [place] [address] Mar, [facility] [address] [id number] [address] [place] [address], [place] [address] Mar, [facility] [address] [id number] [address] [place] [address] [address] Mar, [facility] [address] [id number] [address] [place] [address], [place] [address] 31 Mar, 2013 [facility] [address] [id number] [address] [place] [address], [place] [address] Mar, [facility] [address] [id number] [address] [place] [address], [place] [address] 30 Mar, 2014 [facility] [address] [id number] [address] [place] [address], [place] [address] Mar, [facility] [address] [id number] [address] [place] [address], [place] [address] Mar, [facility] [address] [id number] [address] [place] [address], [place] [address] Mar, [facility] [address] [id number] [address] [place] [address], [place] [address] Mar, [facility] [address] [id number] [address] [place] [address] Mar, [facility] [address] [id number] [address] [place] [address] Mar, [facility] [address] [id number] [address] [place] [address] Mar, [facility] [address] [id number] [address] [place] [address] Mar, 2013 [facility] [address] [id number] [address] [place] [address] Mar, 2013 [facility] [address] [id number] [address] [place] [address] Mar, [facility] [address] [id number] [address] [place] [address] Mar, [facility] [address] [id number] [address] [place] [address] Mar, 2013 [facility] [address] [id number] [address] [place] [address], [place] [address] 02 Mar, 2013 [facility] [address] [id number] [address] [place] [address], [place] [address] 02 Mar, 2013 [facility] [address] [id number] [address] [place] [address], [place] [address] 05 Sep, 2013 [facility] [address] [id number] [address] [place] [address], [place] [address] 05 Sep, 2013 [facility] [address] [id number] [address] [place] [address], [place] [address] 04 Sep, 2013 [facility] [address] [id number] [address] [place] [address], [place] [address] 04 Sep, 2013 [facility] [address] [id number] [address] [place] [address], [place] [address] 03 Feb, 2013 [facility] [address] [id number] [address] [place] [address], [place] [address] 03 Feb, 2013 [facility] [address] [id number] [address] [place] [address], [place] [address] 02 Feb, 2013 [facility] [address] [id number] [address] [place] [address], [place] [address] Feb, 2013 [facility] [address] [id number] [address] [place] [address], [place] [address] 02 Feb, 2013 [facility] [address] [id number] [address] [place] [address], [place] [address] Feb, 2013 [facility] [address] [id number] [address] [place] [address], [place] [address] Jan, [facility] [address] [id number] [address] [place] [address], [place] [address] Jan, [facility] [address] [id number] [address] [place] [address], [place] [address] Jan, [facility] [address] [id number] [address] [place] [address], [place] [address] Jan, [facility] [address] [id number] [facility] [place] [address] Jan, [facility] [address] [id number] [address] [place] [address], [place] [address] Jan, [facility] [address] [id number] [address] [place] [address], [place] [address] Jan, [facility] [address] [id number] [address] [place] [address], [place] [address] Jan, [facility] [address] [id number] [address] [place] [address], [place] [address] Jan, [facility] [address] [id number] [address] [place] [address], [place] [address] Jan, [facility] [address] [id number] [address] [place] [address], [place] [address] Jan, [facility] [address] [id number] [address] [place] [address], [place] [address] Jan, [facility] [address] [id number] [address] [place] [address], [place] [address] Dec, [facility] [address] [id number] [address] [place] [address], [place] [address] Dec, [facility] [address] [id number] [address] [place] [address], [place] [address] Dec, [facility] [address] [id number] [address] [place] [address], [place] [address] Dec, [facility] [facility] [address] [id number] [address] [place] [address], [place] [address] Dec, [facility] [address] [id number] [address] [place] [address], [place] [address] Dec, [facility] [address] [id number] [address] [place] [address], [place] [address] Dec, [facility] [address] [id number] [address] [place] [address], [place] [address] Dec, [facility] [address] [id number] [facility] [place] [address] Dec, [facility] [address] [id number] [address] [place] [address], [place] [address] Dec, [facility] [address] [id number] [address] [place] [address], [place] [address] Dec, [facility] [address] [id number] [address] [place] [address], [place] [address] Dec, [facility] [address] [id number] [address] [place] [address], [place] [address] Nov, [facility] [address] [id number] [address] [place] [address], [place] [address] Nov, [facility] [address] [id number] [address] [place] [address], [place] [address] Nov, [facility] [address] [id number] [address] [place] [address], [place] [address] Nov, [facility] [address] [id number] [address] [place] [address], [place] [address] Nov, [facility] [address] [id number] [address] [place] [address], [place] [address] Nov, [facility] [address] [id number] [address] [place] [address], [place] [address] Nov, [facility] [address] [id number] [address] [place] [address], [place] [address] Nov, [facility] [address] [id number] [address] [place] [address], [place] [address] Nov, [facility] [address] [id number] [address] [place] [address], [place] [address] Nov, [facility] [address] [id number] [address] [place] [address], [place] [address] Nov, [facility] [address] [id number] [facility] [place] [address] Nov, [facility] [address] [id number] [address] [place] [address], [place] [address] Nov, [facility] [address] [id number] [address] [place] [address], [place] [address] Nov, [facility] [address] [id number] [address] [place] [address], [place] [address] October, [facility] [address] [id number] [address] [place] [address], [place] [address] October, [facility] [address] [id number] [address] [place] [address], [place] [address] October, [facility] [address] [id number] [address] [place] [address], [place] [address] October, [facility] [address] [id number] [address] [place] [address], [place] [address] October, [facility] [address] [id number] [address] [place] [address], [place] [address] October, [facility] [address] [id number] [address] [place] [address], [place] [address] October, [facility] [address] [id number] [address] [place] [address], [place] [address] October, [facility] [address] [id number] [address] [place] [address], [place] [address] October, [facility] [address] [id number] [address] [place] [address], [place] [address] October, [facility] [address] [id number] [address] [place] [address], [place] [address] October, [facility] [address] [id number] [address] [place] [address], [place] [address] October, [facility] [address] [id number] [address] [place] [address], [place] [address] Sep, [facility] [address] [id number] [facility] [place] [address] Sep, [facility] [address] [id number] [address] [place] [address], [place] [address] Sep, [facility] [address] [id number] [facility] [place] [address] Sep, [facility] [address] [id number] [address] [place] [address], [place] [address] Sep, [facility] [address] [id number] [address] [place] [address], [place] [address] Sep, [facility] [address] [id number] [address] [place] [address], [place] [address] Aug, [facility] [address] [id number] [address] [place] [address], [place] [address] Aug, [facility] [address] [id number] [address] [place] [address], [place] [address] Aug, [facility] [address] [id number] [address] [place] [address], [place] [address] Aug, [facility] [address] [id number] [address] [place] [address], [place] [address] Aug, [facility] [address] [id number] [address] [place] [address], [place] [address] Aug, [facility] [address] [id number] [address] [place] [address], [place] [address] Jul, [facility] [address] [id number] [address] [place] [address], [place] [address] Jul, [facility] [address] [id number] [address] [place] [address], [place] [address] Jul, [facility] [address] [id number] [address] [place] [address], [place] [address] Jul, [facility] [address] [id number] [address] [place] [address], [place] [address] 13 Jul, 2013 [facility] [address] [id number] [address] [place] [address], [place] [address] Jul, [facility] [address] [id number] [address] [place] [address], [place] [address] Jul, [facility] [address] [id number] [address] [place] [address], [place] [address] Jul, [facility] [address] [id number] [address] [place] [address], [place] [address] Jul, [facility] [address] [id number] [address] [place] [address], [place] [address] Jul, [facility] [address] [id number] [address] [place] [address], [place] [address] Jun, [facility] [address] [id number] [address] [place] [address], [place] [address] Jun, [facility] [address] [id number] [address] [place] [address], [place] [address] Jun, [facility] [address] [id number] [address] [place] [address], [place] [address] Jun, [facility] [address] [id number] [address] [place] [address], [place] [address] Jun, [facility] [address] [id number] [address] [place] [address], [place] [address] Jun, [facility] [address] [id number] [address] [place] [address], [place] [address] Jun, [facility] [address] [id number] [address] [place] [address], [place] [address] Jun, [facility] [address] [id number] [address] [place] [address], [place] [address] May, [facility] [address] [id number] [address] [place] [address], [place] [address] May, [facility] [address] [id number] [address] [place] [address], [place] [address] May, [facility] [address] [id number] [address] [place] [address], [place] [address] May, [facility] [address] [id number] [address] [place] [address], [place] [address] May, [facility] [address] [id number] [address] [place] [address], [place] [address] May, [facility] [address] [id number] [address] [place] [address], [place] [address] May, [facility] [address] [id number] [address] [place] [address], [place] [address] May, [facility] [address] [id number] [address] [place] [address], [place] [address] Apr, [facility] [address] [id number] [address] [place] [address] Apr, [facility] [address] [id number] [address] [place] [address], [place] [address] Apr, [facility] [address] [id number] [address] [place] [address] Apr, [facility] [address] [id number] [address] [place] [address] Apr, [facility] [address] [id number] [address] [place] [address] Apr, [facility] [address] [id number] [address] [place] [address], [place] [address] Mar, [facility] [address] [id number] [address] [place] [address] Mar, [facility] [address] [id number] [address] [place] [address], [place] [address] Mar, [facility] [address] [id number] [address] [place] [address], [place] [address] Mar, [facility] [address] [id number] [address] [place] [address], [place] [address] Mar, [facility] [address] [id number] [address] [place] [address], [place] [address] Mar, [facility] [address] [id number] [address] [place] [address], [place] [address] Mar, [facility] [address] [id number] [address] [place] [address], [place] [address] 30 Feb, 2012 [facility] [address] [id number] [address] [place] [address], [place] [address] 30 Feb, 2013 [facility] [address] [id number] [address] [place] [address], [place] [address] 27 Feb, 2013 [facility] [address] [id number] [address] [place] [address], [place] [address] Feb, 2012 [facility] [address] [id number] [address] [place] [address], [place] [address] Feb, [facility] [address] [id number] [address] [place] [address], [place] [address] Feb, [facility] [address] [id number] [address] [place] [address], [place] [address] Jan, [facility] [address] [id number] [address] [place] [address], [place] [address] Jan, [facility] [address] [id number] [address] [place] [address], [place] [address] Jan, [facility] [address] [id number] [address] [place] [address], [place] [address] Jan, [facility] [address] [id number] [address] [place] [address], [place] [address] Jan, [facility] [address] [id number] [address] [place] [address], [place] [address] Jan, [facility] [address] [id number] [address] [place] [address], [place] [address] Jan, [facility] [address] [id number] [address] [place] [address], [place] [address] Jan, [facility] [address] [id number] [address] [place] [address], [place] [address] Jan, [facility] [address] [id number] [address] [place] [address], [place] [address] Dec, [facility] [address] [id number] [address] [place] [address], [place] [address] Dec, [facility] [address] [id number] [address] [place] [address], [place] [address] Dec, [facility] [address] [id number] [address] [place] [address], [place] [address] Dec, [facility] [address] [id number] [address] [place] [address], [place] [address] Dec, [facility] [address] [id number] [address] [place] [address], [place] [address] Dec, [facility] [address] [id number] [address] [place] [address], [place] [address] Dec, [facility] [address] [id number] [address] [place] [address], [place] [address] Dec, [facility] [address] [id number] [address] [place] [address], [place] [address] Dec, [facility] [address] [id number] [address] [place] [address], [place] [address] Dec, [facility] [address] [id number] [address] [place] [address], [place] [address] Dec, [facility] [address] [id number] [address] [place] [address], [place] [address] Dec, [facility] [address] [id number] [address] [place] [address], [place] [address] Dec, [facility] [address] [id number] [address] [place] [address], [place] [address] Nov, [facility] [address] [id number] [address] [place] [address], [place] [address] Nov, [facility] [address] [id number] [address] [place] [address], [place] [address] Nov, [facility] [address] [id number] [address] [place] [address], [place] [address] Nov, [facility] [address] [id number] [address] [place] [address], [place] [address] October, [facility] [address] [id number] [address] [place] [address], [place] [address] October, [facility] [address] [id number] [address] [place] [address], [place] [address] October, [facility] [address] [id number] [address] [place] [address], [place] [address] October, [facility] [address] [id number] [address] [place] [address], [place] [address] October, [facility] [address] [id number] [address] [place] [address], [place] [address] October, [facility] [address] [id number] [address] [place] [address], [place] [address] Sep, [facility] [address] [id number] [address] [place] [address], [place] [address] Sep, [facility] [address] [id number] [address] [place] [address], [place] [address] Sep, [facility] [address] [id number] [address] [place] [address], [place] [address] Sep, [facility] [address] [id number] [address] [place] [address], [place] [address] Sep, [facility] [address] [id number] [facility] [place] [address] 16 Sep, 2012 [facility] [address] [id number] [address] [place] [address], [place] [address] 12 Sep, 2012 [facility] [address] [id number] [address] [place] [address], [place] [address] Sep, [facility] [address] [id number] [address] [place] [address], [place] [address] Sep, [facility] [address] [id number] [address] [place] [address], [place] [address] Sep, [facility] [address] [id number] [address] [place] [address], [place] [address] Sep, [facility] [address] [id number] [address] [place] [address], [place] [address] Aug, [facility] [address] [id number] [address] [place] [address], [place] [address] 25 Aug, 2012 [facility] [address] [id number] [address] [place] [address], [place] [address] 25 Aug, 2012 [facility] [address] [id number] [address] [place] [address], [place] [address] 21 Aug, 2012 [facility] [address] [id number] [address] [place] [address], [place] [address] 19 Aug, 2012 [facility] [address] [id number] [address] [place] [address], [place] [address] 18 Aug, 2012 [facility] [address] [id number] [address] [place] [address], [place] [address] 17 Aug, 2012 [facility] [address] [id number] [address] [place] [address], [place] [address] 15 Aug, 2012 [facility] [address] [id number] [address] [place] [address], [place] [address] 15 Aug, 2012 [facility] [address] [id number] [address] [place] [address], [place] [address] Aug, [facility] [address] [id number] [address] [place] [address], [place] [address] Aug, [facility] [address] [id number] [address] [place] [address], [place] [address] Aug, [facility] [address] [id number] [address] [place] [address], [place] [address] Jul, [facility] [address] [id number] [address] [place] [address], [place] [address] Jul, [facility] [address] [id number] [address] [place] [address], [place] [address] Jul, [facility] [address] [id number] [address] [place] [address], [place] [address] Jul, [facility] [address] [id number] [address] [place] [address], [place] [address] Jul, [facility] [address] [id number] [address] [place] [address], [place] [address] Jul, [facility] [address] [id number] [address] [place] [address], [place] [address] Jul, [facility] [address] [id number] [address] [place] [address], [place] [address] Jul, [facility] [address] [id number] [address] [place] [address], [place] [address] Jul, [facility] [address] [id number] [address] [place] [address], [place] [address] Jul, [facility] [address] [id number] [address] [place] [address], [place] [address] May, [facility] [address] [id number] [id number] May, [facility] [address] [id number] [address] [place] [address], [place] [address] May, [facility] [address] [id number] [address] [place] [address] May, [facility] [address] [facility] [id number] [address] [place] [address] May, [facility] [address] [facility] [id number] [address] [place] [id number] Apr, [facility] [place] [address] [id number] [place] [id number] Apr, [facility] [address] [facility] [id number] [address] [place] [id number] Apr, [facility] [address] [facility] [id number] [address] [place] [phone] Mar, [facility] [address] [id number] [place] [id number] Mar, [facility] [address] [facility] [id number] [address] [place] [id number] Mar, [facility] [address] [id number] [place] [id number] Feb, [facility] [address] [facility] [id number] [address] [place] [id number] Feb, [facility] [address] [facility] [id number] [address] [place] [address] Feb, [facility] [place] [address] [id number] [place] [id number] Feb, [facility] [address] [id number] [place] [id number] Feb, [facility] [address] [id number] [place] [id number] Jan, [facility] [address] [id number] [address] [place] [address], [place] [address] Jan, [facility] [address] [id number] [place] [id number] Jan, [facility] [place] [address] [id number] [place] [id number] Jan, [facility] [place] [address] [id number] [place] [id number] Jan, [facility] [address] [facility] [id number] [address] [place] [address], [place] [id number] Jan, [facility] [address] [facility] [id number] [address] [place] [address], [place] [id number] Jan, [facility] [address] [facility] [id number] [address] [place] [address], [place] [id number] Aug, [facility] [place] [address] [id number] [place] [id number] Aug, [facility] [address] [facility] [id number] [address] [place] [address], [place] [address] Jul, [facility] [address] [facility] [id number] [address] [place] [address], [place] [address] Jul, [facility] [address] [facility] [id number] [address] [place] [address], [place] [address] Jul, [facility] [place] [address] [id number] [place] [id number] Jul, [facility] [address] [facility] [id number] [address] [place] [address], [place] [address] Jul, [facility] [place] [address] [id number] [place] [id number] Jul, [facility] [address] [facility] [id number] [address] [place] [address], [place] [address] Jul, [facility] [place] [address] [id number] [place] [id number] Jul, [facility] [address] [id number] [place] [id number] Jul, [facility] [address] [id number] [place] [id number] Jul, [facility] [address] [facility] [id number] [address] [place] [address], [place] [address] May, [facility] [address] [id number] [address] [place] [phone] May, [facility] [address] [id number] [address] [place] [address] May, [facility] [address] [id number] [address] [place] [id number] Apr, [facility] [address] [id number] [address] [place] [id number] Jan, [facility] [address] [id number] [address] [place] [id number] Jan, [facility] [address] [id number] [address] [place] [id number] Dec, [facility] [address] [id number] [address] [place] [address] Dec, [facility] [address] [id number] [address] [place] [id number] May, [facility] [address] [id number] [address] [place] [id number] Mar, [facility] [address] [id number] [address] [place] [address] Mar, [facility] [address] [id number] [address] [place] [id number] Jan, IMMUNIZATIONS No Known Immunizations SOCIAL HISTORY Never Assessed REASON FOR VISIT PLAN OF CARE VITAL SIGNS Height 63 in 2014-09-06 Weight 192.38 lbs 2014-09-06 Temperature 98.5 degrees Fahrenheit 2014-09-06 Heart Rate 80 bpm 2014-09-06 Respiratory Rate 18 2014-09-06 Blood pressure systolic 132 mmHg 2014-09-06 Blood pressure diastolic 84 mmHg 2014-09-06 MEDICATIONS Unknown Medications RESULTS No Results PROCEDURES Procedure Date Ordered Result Body Site PROTHROMBIN TIME September 06, 2014 INSTRUCTIONS MEDICATIONS ADMINISTERED No Known Medications [...]
--- OUTSIDE RECORDS SUMMARY | 2020-01-28 12:57 | XMS REPORT ---
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 Active 376577770 Problem History of venous thromboembolism V12.51 Active 515711004 Problem Cellulitis of unspecified part of limb L03.119 Active 452985360 Problem Gastroesophageal reflux disease without esophagitis K21.9 Active 396045215 Problem History of pulmonary embolism Z86.711 Active 393715142 Problem Pseudotumor cerebri G93.2 Active 51898176 Problem History of DVT (deep vein thrombosis) Z86.718 Active 661361706 ALLERGIES No Information ENCOUNTERS Encounter Location Date Diagnosis [place] [id number] [facility] [id number] [address] [place] [address] Apr, snf (current) use of 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 Z79.01 [facility] [place] [address] [facility] [id number] [address] [place] [address] Apr, snf 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.01 [facility] [place] [address] [facility] [id number] [address] [place] [address] Apr, Cellulitis of unspecified pa rt of limb L03.119 ; Allergic contact dermatitis due to adhesives L23.1 and Chronic pain syndrome G89.4 [facility] [place] [address] [facility] [id number] [address] [place] [address] Apr, [place] [address] [address] [place] [id number] [address] [place] [address] Apr, 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 ; Cellulitis of unspecified part of limb L03.119 ; Chronic pain syndrome G89.4 and Anxiety F41.9 [facility], [place] [address] [place] [id number] [address] [place] [address] 16 Apr, 2015 [facility] [place] [address] [place] [id number] [place] [address] Apr, [place] [address] [place] [id number] [place] [address] Mar, [place] [address] [address] Mar, [place] [address] [address] Mar, Sore throat J02.9 ; Gastroes ophageal reflux disease without esophagitis K21.9 ; Pseudotumor cerebri G93.2 ; Chronic pain syndrome G89.4 ; Choriocarcinoma C58 ; History of pulmonary embolism Z86.711 ; History of DVT (deep vein thrombosis) Z86.718 ; Anxiety F41.9 and Tachycardia R00.0 [place] [address] [address] Feb, Anxiety 300.00 and Chronic p ain 338.29 [place] [address] [place] [id number] [address] [place] [address] Feb, [place] [address] [place] [id number] [address] [place] [address] Feb, [place] [address] [address] Jan, 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 and Dysuria 788.1 [place] [address] [place] [id number] [place] [address] Jan, Dysuria 788.1 [facility], [place] [address] [place] [id number] [address] [place] [address] Jan, Anxiety 300.00 and Chronic p ain 338.29 [facility] [place] [address] [place] [id number] [place] [address] Jan, [facility] [place] [address] [address] Jan, [facility] [place] [address] [address] Jan, [place] [address] [address] Dec, Weakness 780.79 [place] [address] [address] Dec, snf current use of ant icoagulant therapy V58.61 [place] [address] [address] Dec, Palpitations 785.1 ; Tremor 781.0 ; Weakness 780.79 ; snf current use of anticoagulant therapy V58.61 and Yeast vaginitis 112.1 [place] [address] [place] [id number] [address] [place] [address] Dec, [place] [address] [address] Dec, Cervicalgia 723.1 ; Tachycar yoseph 785.0 ; Pseudotumor cerebri 348.2 and History of venous thromboembolism V12.51 [place] [address] [address] Nov, [place] [address] [address] Nov, [place] [address] [address] Nov, Tachycardia 785.0 ; Pseudotu mor cerebri 348.2 ; Anxiety 300.00 and History of venous thromboembolism V12.51 [facility] [place] [address] [id number] [address] [place] [address] Nov, [facility] [place] [address] [id number] [address] [place] [address] 18 Nov, 2014 [facility] [place] [address] [id number] [address] [place] [address] Nov, [facility] [place] [address] [id number] [address] [place] [address] Nov, [facility] [place] [address] [facility] [id number] [address] [place] [address] Nov, [facility] [place] [address] [facility] [id number] [address] [place] [address] Nov, [facility] [place] [address] [facility] [id number] [address] [place] [address] Nov, [facility] [place] [address] [facility] [id number] [address] [place] [address] October, [facility] [place] [address] [facility] [id number] [address] [place] [address] October, [facility] [place] [address] [place] [id number] [address] [place] [address] October, Pain in thoracic spine 724.1 and Tachycardia 785.0 [facility] [place] [address] [id number] [address] [place] [address] October, [facility] [place] [address] [id number] [address] [place] [address] October, [facility] [place] [address] [facility] [id number] [address] [place] [address] 14 Sep, 2014 [facility] [place] [address] [facility] [id number] [address] [place] [address] Sep, [facility] [address] [id number] [facility] [place] [address] Aug, [facility] [address] [id number] [address] [place] [address], [place] [address] Aug, [facility] [address] [id number] [address] [place] [address], [place] [address] Aug, [facility] [address] [id number] [address] [place] [address], [place] [address] Aug, [facility] [address] [id number] [address] [place] [address], [place] [address] Aug, [facility] [address] [id number] [address] [place] [address], [place] [address] Aug, [facility] [address] [id number] [address] [place] [address], [place] [address] Aug, [facility] [address] [id number] [address] [place] [address], [place] [address] Aug, [facility] [address] [id number] [address] [place] [address], [place] [address] Aug, [facility] [address] [id number] [address] [place] [address], [place] [address] Aug, [facility] [address] [id number] [address] [place] [address], [place] [address] Aug, [facility] [address] [id number] [address] [place] [address], [place] [address] Aug, 2014 [facility] [address] [id number] [address] [place] [address], [place] [address] Jul, [facility] [address] [id number] [address] [place] [address], [place] [address] Jul, [facility] [address] [id number] [address] [place] [address], [place] [address] Jul, [facility] [address] [id number] [address] [place] [address], [place] [address] Jul, [facility] [address] [id number] [address] [place] [address], [place] [address] 23 Jul, 2014 [facility] [address] [id number] [address] [place] [address], [place] [address] 23 Jul, 2014 [facility] [address] [id number] [address] [place] [address], [place] [address] 23 Jul, 2014 [facility] [address] [id number] [address] [place] [address], [place] [address] 23 Jul, 2014 [facility] [address] [id number] [address] [place] [address], [place] [address] 20 Jul, 2014 [facility] [address] [id number] [address] [place] [address], [place] [address] 20 Jul, 2014 [facility] [address] [id number] [address] [place] [address], [place] [address] 19 Jul, 2014 [facility] [address] [id number] [address] [place] [address], [place] [address] 19 Jul, 2014 [facility] [address] [id number] [address] [place] [address], [place] [address] 17 Jul, 2014 [facility] [address] [id number] [address] [place] [address], [place] [address] 17 Jul, 2014 [facility] [address] [id number] [address] [place] [address], [place] [address] 16 Jul, 2014 [facility] [address] [id number] [address] [place] [address], [place] [address] 16 Jul, 2014 [facility] [address] [id number] [address] [place] [address], [place] [address] 16 Jul, 2014 [facility] [address] [id number] [address] [place] [address] 16 Jul, 2014 [facility] [address] [id number] [address] [place] [address] 13 Jul, 2014 [facility] [address] [id number] [address] [place] [address], [place] [address] Jul, [facility] [address] [id number] [address] [place] [address], [place] [address] Jul, [facility] [address] [id number] [address] [place] [address], [place] [address] Jul, 2014 [facility] [address] [id number] [address] [place] [address], [place] [address] Jul, 2014 [facility] [address] [id number] [address] [place] [address], [place] [address] Jul, [facility] [address] [id number] [address] [place] [address], [place] [address] Jul, [facility] [address] [id number] [address] [place] [address], [place] [address] Jul, [facility] [address] [id number] [address] [place] [address], [place] [address] Jul, [facility] [address] [id number] [address] [place] [address], [place] [address] Jul, [facility] [address] [id number] [address] [place] [address], [place] [address] Jul, [facility] [address] [id number] [address] [place] [address], [place] [address] Jul, [facility] [address] [id number] [address] [place] [address], [place] [address] Jun, [facility] [address] [id number] [address] [place] [address], [place] [address] Jun, [facility] [address] [id number] [address] [place] [address], [place] [address] Jun, [facility] [address] [id number] [address] [place] [address], [place] [address] Jun, [facility] [address] [id number] [address] [place] [address], [place] [address] Jun, [facility] [address] [id number] [address] [place] [address], [place] [address] Jun, [facility] [address] [id number] [address] [place] [address], [place] [address] Jun, [facility] [address] [id number] [address] [place] [address], [place] [address] Jun, [facility] [address] [id number] [address] [place] [address], [place] [address] Jun, [facility] [address] [id number] [address] [place] [address], [place] [address] Jun, [facility] [address] [id number] [address] [place] [address], [place] [address] Jun, [facility] [address] [id number] [address] [place] [address], [place] [address] Jun, [facility] [address] [id number] [address] [place] [address], [place] [address] Jun, [facility] [address] [id number] [address] [place] [address], [place] [address] Jun, [facility] [address] [id number] [address] [place] [address], [place] [address] Jun, [facility] [address] [id number] [address] [place] [address], [place] [address] Jun, [facility] [address] [id number] [address] [place] [address], [place] [address] Jun, [facility] [address] [id number] [address] [place] [address], [place] [address] Jun, [facility] [address] [id number] [address] [place] [address], [place] [address] Jun, [facility] [address] [id number] [address] [place] [address], [place] [address] Jun, [facility] [address] [id number] [address] [place] [address], [place] [address] May, [facility] [address] [id number] [address] [place] [address], [place] [address] May, [facility] [address] [id number] [address] [place] [address], [place] [address] May, [facility] [address] [id number] [address] [place] [address], [place] [address] May, [facility] [address] [id number] [address] [place] [address], [place] [address] May, [facility] [address] [id number] [address] [place] [address], [place] [address] May, [facility] [address] [id number] [address] [place] [address], [place] [address] May, [facility] [address] [id number] [address] [place] [address], [place] [address] May, [facility] [address] [id number] [address] [place] [address], [place] [address] May, [facility] [address] [id number] [address] [place] [address], [place] [address] May, [facility] [address] [id number] [address] [place] [address], [place] [address] May, [facility] [address] [id number] [address] [place] [address], [place] [address] 18 May, 2014 [facility] [address] [id number] [address] [place] [address], [place] [address] 18 May, 2014 [facility] [address] [id number] [address] [place] [address], [place] [address] 17 May, 2014 [facility] [address] [id number] [address] [place] [address], [place] [address] 16 May, 2014 [facility] [address] [id number] [address] [place] [address], [place] [address] 16 May, 2014 [facility] [address] [id number] [address] [place] [address], [place] [address] 15 May, 2014 [facility] [address] [id number] [address] [place] [address], [place] [address] 15 May, 2014 [facility] [address] [id number] [address] [place] [address], [place] [address] May, [facility] [address] [id number] [address] [place] [address], [place] [address] May, [facility] [address] [id number] [address] [place] [address], [place] [address] May, [facility] [address] [id number] [address] [place] [address], [place] [address] May, [facility] [address] [id number] [address] [place] [address], [place] [address] May, [facility] [address] [id number] [address] [place] [address], [place] [address] May, [facility] [address] [id number] [address] [place] [address], [place] [address] May, [facility] [address] [id number] [address] [place] [address], [place] [address] May, [facility] [address] [id number] [address] [place] [address], [place] [address] May, [facility] [address] [id number] [address] [place] [address], [place] [address] May, [facility] [address] [id number] [address] [place] [address], [place] [address] May, [facility] [address] [id number] [address] [place] [address], [place] [address] May, [facility] [address] [id number] [address] [place] [address], [place] [address] May, [facility] [address] [id number] [address] [place] [address], [place] [address] May, [facility] [address] [id number] [address] [place] [address], [place] [address] May, [facility] [address] [id number] [address] [place] [address], [place] [address] May, [facility] [address] [id number] [address] [place] [address], [place] [address] Apr, [facility] [address] [id number] [address] [place] [address], [place] [address] Apr, [facility] [address] [id number] [address] [place] [address], [place] [address] Apr, [facility] [address] [id number] [address] [place] [address], [place] [address] Apr, [facility] [address] [id number] [address] [place] [address], [place] [address] Apr, [facility] [address] [id number] [address] [place] [address], [place] [address] Apr, [facility] [address] [id number] [address] [place] [address], [place] [address] Apr, [facility] [address] [id number] [address] [place] [address], [place] [address] Apr, [facility] [address] [id number] [address] [place] [address], [place] [address] Apr, [facility] [address] [id number] [address] [place] [address], [place] [address] Apr, [facility] [address] [id number] [address] [place] [address], [place] [address] Mar, [facility] [address] [id number] [address] [place] [address], [place] [address] Mar, [facility] [address] [id number] [address] [place] [address] [address] Mar, [facility] [address] [id number] [address] [place] [address], [place] [address] 31 Mar, 2013 [facility] [address] [id number] [address] [place] [address], [place] [address] Mar, [facility] [address] [id number] [address] [place] [address], [place] [address] 30 Mar, 2014 [facility] [address] [id number] [address] [place] [address], [place] [address] Mar, [facility] [address] [id number] [address] [place] [address], [place] [address] Mar, [facility] [address] [id number] [address] [place] [address], [place] [address] Mar, [facility] [address] [id number] [address] [place] [address], [place] [address] Mar, [facility] [address] [id number] [address] [place] [address] Mar, [facility] [address] [id number] [address] [place] [address] Mar, [facility] [address] [id number] [address] [place] [address] Mar, [facility] [address] [id number] [address] [place] [address] Mar, 2013 [facility] [address] [id number] [address] [place] [address] Mar, 2013 [facility] [address] [id number] [address] [place] [address] Mar, [facility] [address] [id number] [address] [place] [address] Mar, [facility] [address] [id number] [address] [place] [address] Mar, 2013 [facility] [address] [id number] [address] [place] [address], [place] [address] 02 Mar, 2013 [facility] [address] [id number] [address] [place] [address], [place] [address] 02 Mar, 2013 [facility] [address] [id number] [address] [place] [address], [place] [address] 05 Sep, 2013 [facility] [address] [id number] [address] [place] [address], [place] [address] 05 Sep, 2013 [facility] [address] [id number] [address] [place] [address], [place] [address] 04 Sep, 2013 [facility] [address] [id number] [address] [place] [address], [place] [address] 04 Sep, 2013 [facility] [address] [id number] [address] [place] [address], [place] [address] 03 Feb, 2013 [facility] [address] [id number] [address] [place] [address], [place] [address] 03 Feb, 2013 [facility] [address] [id number] [address] [place] [address], [place] [address] 02 Feb, 2013 [facility] [address] [id number] [address] [place] [address], [place] [address] Feb, 2013 [facility] [address] [id number] [address] [place] [address], [place] [address] 02 Feb, 2013 [facility] [address] [id number] [address] [place] [address], [place] [address] Feb, 2013 [facility] [address] [id number] [address] [place] [address], [place] [address] Jan, [facility] [address] [id number] [address] [place] [address], [place] [address] Jan, [facility] [address] [id number] [address] [place] [address], [place] [address] Jan, [facility] [address] [id number] [address] [place] [address], [place] [address] Jan, [facility] [address] [id number] [facility] [place] [address] Jan, [facility] [address] [id number] [address] [place] [address], [place] [address] Jan, [facility] [address] [id number] [address] [place] [address], [place] [address] Jan, [facility] [address] [id number] [address] [place] [address], [place] [address] Jan, [facility] [address] [id number] [address] [place] [address], [place] [address] Jan, [facility] [address] [id number] [address] [place] [address], [place] [address] Jan, [facility] [address] [id number] [address] [place] [address], [place] [address] Jan, [facility] [address] [id number] [address] [place] [address], [place] [address] Jan, [facility] [address] [id number] [address] [place] [address], [place] [address] Dec, [facility] [address] [id number] [address] [place] [address], [place] [address] Dec, [facility] [address] [id number] [address] [place] [address], [place] [address] Dec, [facility] [address] [id number] [address] [place] [address], [place] [address] Dec, [facility] [address] [id number] [address] [place] [address], [place] [address] Dec, [facility] [address] [id number] [address] [place] [address], [place] [address] Dec, [facility] [address] [id number] [address] [place] [address], [place] [address] Dec, [facility] [address] [id number] [address] [place] [address], [place] [address] Dec, [facility] [address] [id number] [facility] [place] [address] Dec, [facility] [address] [id number] [address] [place] [address], [place] [address] Dec, [facility] [address] [id number] [address] [place] [address], [place] [address] Dec, [facility] [address] [id number] [address] [place] [address], [place] [address] Dec, [facility] [address] [id number] [address] [place] [address], [place] [address] Nov, [facility] [address] [id number] [address] [place] [address], [place] [address] Nov, [facility] [address] [id number] [address] [place] [address], [place] [address] Nov, [facility] [address] [id number] [address] [place] [address], [place] [address] Nov, [facility] [address] [id number] [address] [place] [address], [place] [address] Nov, [facility] [address] [id number] [address] [place] [address], [place] [address] Nov, [facility] [address] [id number] [address] [place] [address], [place] [address] Nov, [facility] [address] [id number] [address] [place] [address], [place] [address] Nov, [facility] [address] [id number] [address] [place] [address], [place] [address] Nov, [facility] [address] [id number] [address] [place] [address], [place] [address] Nov, [facility] [address] [id number] [address] [place] [address], [place] [address] Nov, [facility] [address] [id number] [facility] [place] [address] Nov, [facility] [address] [id number] [address] [place] [address], [place] [address] Nov, [facility] [address] [id number] [address] [place] [address], [place] [address] Nov, [facility] [address] [id number] [address] [place] [address], [place] [address] October, [facility] [address] [id number] [address] [place] [address], [place] [address] October, [facility] [address] [id number] [address] [place] [address], [place] [address] October, [facility] [address] [id number] [address] [place] [address], [place] [address] October, [facility] [address] [id number] [address] [place] [address], [place] [address] October, [facility] [address] [id number] [address] [place] [address], [place] [address] October, [facility] [address] [id number] [address] [place] [address], [place] [address] October, [facility] [address] [id number] [address] [place] [address], [place] [address] October, [facility] [address] [id number] [address] [place] [address], [place] [address] October, [facility] [address] [id number] [address] [place] [address], [place] [address] October, [facility] [address] [id number] [address] [place] [address], [place] [address] October, [facility] [address] [id number] [address] [place] [address], [place] [address] October, [facility] [address] [id number] [address] [place] [address], [place] [address] Sep, [facility] [address] [id number] [facility] [place] [address] Sep, [facility] [address] [id number] [address] [place] [address], [place] [address] Sep, [facility] [address] [id number] [facility] [place] [address] Sep, [facility] [address] [id number] [address] [place] [address], [place] [address] Sep, [facility] [address] [id number] [address] [place] [address], [place] [address] Sep, [facility] [address] [id number] [address] [place] [address], [place] [address] Aug, [facility] [address] [id number] [address] [place] [address], [place] [address] Aug, [facility] [address] [id number] [address] [place] [address], [place] [address] Aug, [facility] [address] [id number] [address] [place] [address], [place] [address] Aug, [facility] [address] [id number] [address] [place] [address], [place] [address] Aug, [facility] [address] [id number] [address] [place] [address], [place] [address] Aug, [facility] [address] [id number] [address] [place] [address], [place] [address] Jul, [facility] [address] [id number] [address] [place] [address], [place] [address] Jul, [facility] [address] [id number] [address] [place] [address], [place] [address] Jul, [facility] [address] [id number] [address] [place] [address], [place] [address] Jul, [facility] [address] [id number] [address] [place] [address], [place] [address] 13 Jul, 2013 [facility] [address] [id number] [address] [place] [address], [place] [address] Jul, [facility] [address] [id number] [address] [place] [address], [place] [address] Jul, [facility] [address] [id number] [address] [place] [address], [place] [address] Jul, [facility] [address] [id number] [address] [place] [address], [place] [address] Jul, [facility] [address] [id number] [address] [place] [address], [place] [address] Jul, [facility] [address] [id number] [address] [place] [address], [place] [address] Jun, [facility] [address] [id number] [address] [place] [address], [place] [address] Jun, [facility] [address] [id number] [address] [place] [address], [place] [address] Jun, [facility] [address] [id number] [address] [place] [address], [place] [address] Jun, [facility] [address] [id number] [address] [place] [address], [place] [address] Jun, [facility] [address] [id number] [address] [place] [address], [place] [address] Jun, [facility] [address] [id number] [address] [place] [address], [place] [address] Jun, [facility] [address] [id number] [address] [place] [address], [place] [address] Jun, [facility] [address] [id number] [address] [place] [address], [place] [address] May, [facility] [address] [id number] [address] [place] [address], [place] [address] May, [facility] [address] [id number] [address] [place] [address], [place] [address] May, [facility] [address] [id number] [address] [place] [address], [place] [address] May, [facility] [address] [id number] [address] [place] [address], [place] [address] May, [facility] [address] [id number] [address] [place] [address], [place] [address] May, [facility] [address] [id number] [address] [place] [address], [place] [address] May, [facility] [address] [id number] [address] [place] [address], [place] [address] May, [facility] [address] [id number] [address] [place] [address], [place] [address] Apr, [facility] [address] [id number] [address] [place] [address] Apr, [facility] [address] [id number] [address] [place] [address], [place] [address] Apr, [facility] [address] [id number] [address] [place] [address] Apr, [facility] [address] [id number] [address] [place] [address] Apr, [facility] [address] [id number] [address] [place] [address] Apr, [facility] [address] [id number] [address] [place] [address], [place] [address] Mar, [facility] [address] [id number] [address] [place] [address] Mar, [facility] [address] [id number] [address] [place] [address], [place] [address] Mar, [facility] [address] [id number] [address] [place] [address], [place] [address] Mar, [facility] [address] [id number] [address] [place] [address], [place] [address] Mar, [facility] [address] [id number] [address] [place] [address], [place] [address] Mar, [facility] [address] [id number] [address] [place] [address], [place] [address] Mar, [facility] [address] [id number] [address] [place] [address], [place] [address] 30 Feb, 2012 [facility] [address] [id number] [address] [place] [address], [place] [address] 30 Feb, 2013 [facility] [address] [id number] [address] [place] [address], [place] [address] 27 Feb, 2013 [facility] [address] [id number] [address] [place] [address], [place] [address] Feb, 2012 [facility] [address] [id number] [address] [place] [address], [place] [address] Feb, [facility] [address] [id number] [address] [place] [address], [place] [address] Feb, [facility] [address] [id number] [address] [place] [address], [place] [address] Jan, [facility] [address] [id number] [address] [place] [address], [place] [address] Jan, [facility] [address] [id number] [address] [place] [address], [place] [address] Jan, [facility] [address] [id number] [address] [place] [address], [place] [address] Jan, [facility] [address] [id number] [address] [place] [address], [place] [address] Jan, [facility] [address] [id number] [address] [place] [address], [place] [address] Jan, [facility] [address] [id number] [address] [place] [address], [place] [address] Jan, [facility] [address] [id number] [address] [place] [address], [place] [address] Jan, [facility] [address] [id number] [address] [place] [address], [place] [address] Jan, [facility] [address] [id number] [address] [place] [address], [place] [address] Dec, [facility] [address] [id number] [address] [place] [address], [place] [address] Dec, [facility] [address] [id number] [address] [place] [address], [place] [address] Dec, [facility] [address] [id number] [address] [place] [address], [place] [address] Dec, [facility] [address] [id number] [address] [place] [address], [place] [address] Dec, [facility] [address] [id number] [address] [place] [address], [place] [address] Dec, [facility] [address] [id number] [address] [place] [address], [place] [address] Dec, [facility] [address] [id number] [address] [place] [address], [place] [address] Dec, [facility] [address] [id number] [address] [place] [address], [place] [address] Dec, [facility] [address] [id number] [address] [place] [address], [place] [address] Dec, [facility] [address] [id number] [address] [place] [address], [place] [address] Dec, [facility] [address] [id number] [address] [place] [address], [place] [address] Dec, [facility] [address] [id number] [address] [place] [address], [place] [address] Dec, [facility] [address] [id number] [address] [place] [address], [place] [address] Nov, [facility] [address] [id number] [address] [place] [address], [place] [address] Nov, [facility] [address] [id number] [address] [place] [address], [place] [address] Nov, [facility] [address] [id number] [address] [place] [address], [place] [address] Nov, [facility] [address] [id number] [address] [place] [address], [place] [address] October, [facility] [address] [id number] [address] [place] [address], [place] [address] October, [facility] [address] [id number] [address] [place] [address], [place] [address] October, [facility] [address] [id number] [address] [place] [address], [place] [address] October, [facility] [address] [id number] [address] [place] [address], [place] [address] October, [facility] [address] [id number] [address] [place] [address], [place] [address] October, [facility] [address] [id number] [address] [place] [address], [place] [address] Sep, [facility] [address] [id number] [address] [place] [address], [place] [address] Sep, [facility] [address] [id number] [address] [place] [address], [place] [address] Sep, [facility] [address] [id number] [address] [place] [address], [place] [address] Sep, [facility] [address] [id number] [address] [place] [address], [place] [address] Sep, [facility] [address] [id number] [facility] [place] [address] 16 Sep, 2012 [facility] [address] [id number] [address] [place] [address], [place] [address] 12 Sep, 2012 [facility] [address] [id number] [address] [place] [address], [place] [address] Sep, [facility] [address] [id number] [address] [place] [address], [place] [address] Sep, [facility] [address] [id number] [address] [place] [address], [place] [address] Sep, [facility] [address] [id number] [address] [place] [address], [place] [address] Sep, [facility] [address] [id number] [address] [place] [address], [place] [address] Aug, [facility] [address] [id number] [address] [place] [address], [place] [address] 25 Aug, 2012 [facility] [address] [id number] [address] [place] [address], [place] [address] 25 Aug, 2012 [facility] [address] [id number] [address] [place] [address], [place] [address] 21 Aug, 2012 [facility] [address] [id number] [address] [place] [address], [place] [address] 19 Aug, 2012 [facility] [address] [id number] [address] [place] [address], [place] [address] 18 Aug, 2012 [facility] [address] [id number] [address] [place] [address], [place] [address] 17 Aug, 2012 [facility] [address] [id number] [address] [place] [address], [place] [address] 15 Aug, 2012 [facility] [address] [id number] [address] [place] [address], [place] [address] 15 Aug, 2012 [facility] [address] [id number] [address] [place] [address], [place] [address] Aug, [facility] [address] [id number] [address] [place] [address], [place] [address] Aug, [facility] [address] [id number] [address] [place] [address], [place] [address] Aug, [facility] [address] [id number] [address] [place] [address], [place] [address] Jul, [facility] [address] [id number] [address] [place] [address], [place] [address] Jul, [facility] [address] [id number] [address] [place] [address], [place] [address] Jul, [facility] [address] [id number] [address] [place] [address], [place] [address] Jul, [facility] [address] [id number] [address] [place] [address], [place] [address] Jul, [facility] [address] [id number] [address] [place] [address], [place] [address] Jul, [facility] [address] [id number] [address] [place] [address], [place] [address] Jul, [facility] [address] [id number] [address] [place] [address], [place] [address] Jul, [facility] [address] [id number] [address] [place] [address], [place] [address] Jul, [facility] [address] [id number] [address] [place] [address], [place] [address] Jul, [facility] [address] [id number] [address] [place] [address], [place] [address] May, [facility] [address] [id number] [place] [id number] May, [facility] [address] [id number] [address] [place] [address], [place] [address] May, [facility] [address] [id number] [address] [place] [id number] May, [facility] [address] [facility] [id number] [address] [place] [id number] May, [facility] [address] [facility] [id number] [address] [place] [phone] Apr, [facility] [place] [address] [id number] [place] [id number] Apr, [facility] [address] [facility] [id number] [address] [place] [id number] Apr, [facility] [address] [facility] [id number] [address] [place] [id number] Mar, [facility] [place] [address] [id number] [place] [id number] Mar, [facility] [address] [facility] [id number] [address] [place] [id number] Mar, [facility] [address] [id number] [place] [id number] Feb, [facility] [address] [facility] [id number] [address] [place] [id number] Feb, [facility] [address] [facility] [id number] [address] [place] [id number] Feb, [facility] [place] [address] [id number] [place] [id number] Feb, [facility] [address] [id number] [place] [id number] Feb, [facility] [address] [id number] [place] [id number] Jan, [facility] [address] [id number] [address] [place] [address], [place] [address] Jan, [facility] [place] [address] [id number] [place] [id number] Jan, [facility] [place] [address] [id number] [place] [id number] Jan, [facility] [place] [address] [id number] [place] [id number] Jan, [facility] [address] [facility] [id number] [address] [place] [address], [place] [address] Jan, [facility] [address] [facility] [id number] [address] [place] [address], [place] [address] Jan, [facility] [address] [facility] [id number] [address] [place] [address], [place] [address] Aug, [facility] [place] [address] [id number] [place] [id number] Aug, [facility] [address] [facility] [id number] [address] [place] [address], [place] [address] Jul, [facility] [address] [facility] [id number] [address] [place] [address], [place] [address] Jul, [facility] [address] [facility] [id number] [address] [place] [address], [place] [address] Jul, [facility] [place] [address] [id number] [place] [id number] Jul, [facility] [address] [facility] [id number] [address] [place] [address], [place] [address] Jul, [facility] [place] [address] [id number] [place] [id number] Jul, [facility] [address] [facility] [id number] [address] [place] [address], [place] [address] Jul, [facility] [place] [address] [id number] [place] [id number] Jul, [facility] [place] [address] [id number] [place] [id number] Jul, [facility] [place] [address] [id number] [place] [id number] Jul, [facility] [address] [facility] [id number] [address] [place] [address], [place] [address] May, [facility] [address] [id number] [address] [place] [id number] May, [facility] [place] [address] [id number] [address] [place] [id number] May, [facility] [place] [address] [id number] [address] [place] [id number] Apr, [facility] [place] [address] [id number] [address] [place] [id number] Jan, [facility] [place] [address] [id number] [address] [place] [phone] Jan, [facility] [place] [address] [id number] [address] [place] [id number] Dec, [facility] [place] [address] [id number] [address] [place] [id number] Dec, [facility] [place] [address] [id number] [address] [place] [id number] May, [facility] [place] [address] [id number] [address] [place] [id number] Mar, [facility] [place] [address] [id number] [address] [place] [phone] Mar, [facility] [place] [address] [id number] [address] [place] [phone] Jan, IMMUNIZATIONS No Known Immunizations SOCIAL HISTORY Never Assessed REASON FOR VISIT PLAN OF CARE VITAL SIGNS MEDICATIONS Unknown Medications RESULTS No Results PROCEDURES Procedure Date Ordered Result Body Site PROTHROMBIN TIME September 14, 2014 INSTRUCTIONS MEDICATIONS ADMINISTERED No Known Medications [...]
--- OUTSIDE RECORDS SUMMARY | 2020-01-28 12:57 | XMS REPORT ---
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 907120643 Problem History of venous thromboembolism V12.51 Active 255316095 Problem Cellulitis of unspecified part of limb L03.119 Active 468397992 Problem Gastroesophageal reflux disease without esophagitis K21.9 Active 941609397 Problem History of pulmonary embolism Z86.711 Active 224355147 Problem Pseudotumor cerebri G93.2 Active 64804556 Problem History of DVT (deep vein thrombosis) Z86.718 Active [id number] ALLERGIES No Information ENCOUNTERS Encounter Location Date Diagnosis [place] [id number] [facility] [id number] [address] [place] [place] [id number] Apr, [facility] (current) use of 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 Z79.01 [facility] [address] [facility] [id number] [address] [place] [place] [phone] Apr, [facility] 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.01 [facility] [address] [facility] [id number] [address] [place] [place] [address] Apr, Cellulitis of unspecified pa rt of limb L03.119 ; Allergic contact dermatitis due to adhesives L23.1 and Chronic pain syndrome G89.4 [facility] [address] [facility] [id number] [address] [place] [place] [address] Apr, [place] [address] [place] [id number] [address] [place] [place] [address] Apr, 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 ; Cellulitis of unspecified part of limb L03.119 ; Chronic pain syndrome G89.4 and Anxiety F41.9 [facility] [address] [place] [id number] [address] [place] [place] [address] 16 Apr, 2015 [facility] [address] [place] [id number] [place] [address] Apr, [place] [address] [place] [id number] [place] [address] Mar, [place] [address] [address] Mar, [place] [address] [address] Mar, Sore throat J02.9 ; Gastroes ophageal reflux disease without esophagitis K21.9 ; Pseudotumor cerebri G93.2 ; Chronic pain syndrome G89.4 ; Choriocarcinoma C58 ; History of pulmonary embolism Z86.711 ; History of DVT (deep vein thrombosis) Z86.718 ; Anxiety F41.9 and Tachycardia R00.0 [place] [address] [address] Feb, Anxiety 300.00 and Chronic p ain 338.29 [place] [address] [place] [id number] [address] [place] [place] [address] Feb, [place] [address] [place] [id number] [address] [place] [place] [address] Feb, [place] [address] [address] Jan, 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 therapy V58.61 and Dysuria 788.1 [place] [address] [place] [id number] [place] [address] Jan, Dysuria 788.1 [facility] [address] [place] [id number] [address] [place] [place] [address] Jan, Anxiety 300.00 and Chronic p ain 338.29 [facility] [address] [place] [id number] [place] [address] Jan, [facility] [address] [address] Jan, [facility] [address] [address] Jan, [place] [address] [address] Dec, Weakness 780.79 [place] [address] [address] Dec, FDC current use of ant icoagulant therapy V58.61 [place] [address] [address] Dec, Palpitations 785.1 ; Tremor 781.0 ; Weakness 780.79 ; FDC current use of anticoagulant therapy V58.61 and Yeast vaginitis 112.1 [place] [address] [place] [id number] [address] [place] [address] Dec, [place] [address] [address] Dec, Cervicalgia 723.1 ; Tachycar yoseph 785.0 ; Pseudotumor cerebri 348.2 and History of venous thromboembolism V12.51 [place] [address] [address] Nov, [place] [address] [address] Nov, [place] [address] [address] Nov, Tachycardia 785.0 ; Pseudotu mor cerebri 348.2 ; Anxiety 300.00 and History of venous thromboembolism V12.51 [facility] [address] [id number] [address] [place] [address] Nov, [facility] [address] [id number] [address] [place] [place] [phone] 18 Nov, 2014 [facility] [address] [id number] [address] [place] [place] [phone] Nov, [facility] [address] [id number] [address] [place] [place] [address] Nov, [facility] [address] [facility] [id number] [address] [place] [place] [phone] Nov, [facility] [address] [facility] [id number] [address] [place] [place] [address] Nov, [facility] [address] [facility] [id number] [address] [place] [place] [address] Nov, [facility] [address] [facility] [id number] [address] [place] [place] [phone] October, [facility] [address] [facility] [id number] [address] [place] [phone] October, [facility] [address] [place] [id number] [address] [place] [place] [address] October, Pain in thoracic spine 724.1 and Tachycardia 785.0 [facility] [address] [id number] [address] [place] [place] [phone] October, [facility] [address] [id number] [address] [place] [place] [phone] October, [facility] [address] [facility] [id number] [address] [place] [place] [phone] 14 Sep, 2014 [facility] [address] [facility] [id number] [address] [place] [place] [phone] Sep, [facility] [address] [id number] [facility] [address] Aug, [facility] [address] [id number] [address] [place] [address], [place] [address] Aug, [facility] [address] [id number] [address] [place] [address], [place] [address] Aug, [facility] [address] [id number] [address] [place] [address], [place] [address] Aug, [facility] [address] [id number] [address] [place] [address], [place] [address] Aug, [facility] [address] [id number] [address] [place] [address], [place] [address] Aug, [facility] [address] [id number] [address] [place] [address], [place] [address] Aug, [facility] [address] [id number] [address] [place] [address], [place] [address] Aug, [facility] [address] [id number] [address] [place] [address], [place] [address] Aug, [facility] [address] [id number] [address] [place] [address], [place] [address] Aug, [facility] [address] [id number] [address] [place] [address], [place] [address] Aug, [facility] [address] [id number] [address] [place] [address], [place] [address] Aug, 2014 [facility] [address] [id number] [address] [place] [address], [place] [address] Jul, [facility] [address] [id number] [address] [place] [address], [place] [address] Jul, [facility] [address] [id number] [address] [place] [address], [place] [address] Jul, [facility] [address] [id number] [address] [place] [address], [place] [address] Jul, [facility] [address] [id number] [address] [place] [address], [place] [address] 23 Jul, 2014 [facility] [address] [id number] [address] [place] [address], [place] [address] 23 Jul, 2014 [facility] [address] [id number] [address] [place] [address], [place] [address] 23 Jul, 2014 [facility] [address] [id number] [address] [place] [address], [place] [address] 23 Jul, 2014 [facility] [address] [id number] [address] [place] [address], [place] [address] 20 Jul, 2014 [facility] [address] [id number] [address] [place] [address], [place] [address] 20 Jul, 2014 [facility] [address] [id number] [address] [place] [address], [place] [address] 19 Jul, 2014 [facility] [address] [id number] [address] [place] [address], [place] [address] 19 Jul, 2014 [facility] [address] [id number] [address] [place] [address], [place] [address] 17 Jul, 2014 [facility] [address] [id number] [address] [place] [address], [place] [address] 17 Jul, 2014 [facility] [address] [id number] [address] [place] [address], [place] [address] 16 Jul, 2014 [facility] [address] [id number] [address] [place] [address], [place] [address] 16 Jul, 2014 [facility] [address] [id number] [address] [place] [address], [place] [address] 16 Jul, 2014 [facility] [address] [id number] [address] [place] [place] [id number] 16 Jul, 2014 [facility] [address] [id number] [address] [place] [place] [id number] 13 Jul, 2014 [facility] [address] [id number] [address] [place] [address], [place] [address] Jul, [facility] [address] [id number] [address] [place] [address], [place] [address] Jul, [facility] [address] [id number] [address] [place] [address], [place] [address] Jul, 2014 [facility] [address] [id number] [address] [place] [address], [place] [address] Jul, 2014 [facility] [address] [id number] [address] [place] [address], [place] [address] Jul, [facility] [address] [id number] [address] [place] [address], [place] [address] Jul, [facility] [address] [id number] [address] [place] [address], [place] [address] Jul, [facility] [address] [id number] [address] [place] [address], [place] [address] Jul, [facility] [address] [id number] [address] [place] [address], [place] [address] Jul, [facility] [address] [id number] [address] [place] [address], [place] [address] Jul, [facility] [address] [id number] [address] [place] [address], [place] [address] Jul, [facility] [address] [id number] [address] [place] [address], [place] [address] Jun, [facility] [address] [id number] [address] [place] [address], [place] [address] Jun, [facility] [address] [id number] [address] [place] [address], [place] [address] Jun, [facility] [address] [id number] [address] [place] [address], [place] [address] Jun, [facility] [address] [id number] [address] [place] [address], [place] [address] Jun, [facility] [address] [id number] [address] [place] [address], [place] [address] Jun, [facility] [address] [id number] [address] [place] [address], [place] [address] Jun, [facility] [address] [id number] [address] [place] [address], [place] [address] Jun, [facility] [address] [id number] [address] [place] [address], [place] [address] Jun, [facility] [address] [id number] [address] [place] [address], [place] [address] Jun, [facility] [address] [id number] [address] [place] [address], [place] [address] Jun, [facility] [address] [id number] [address] [place] [address], [place] [address] Jun, [facility] [address] [id number] [address] [place] [address], [place] [address] Jun, [facility] [address] [id number] [address] [place] [address], [place] [address] Jun, [facility] [address] [id number] [address] [place] [address], [place] [address] Jun, [facility] [address] [id number] [address] [place] [address], [place] [address] Jun, [facility] [address] [id number] [address] [place] [address], [place] [address] Jun, [facility] [address] [id number] [address] [place] [address], [place] [address] Jun, [facility] [address] [id number] [address] [place] [address], [place] [address] Jun, [facility] [address] [id number] [address] [place] [address], [place] [address] Jun, [facility] [address] [id number] [address] [place] [address], [place] [address] May, [facility] [address] [id number] [address] [place] [address], [place] [address] May, [facility] [address] [id number] [address] [place] [address], [place] [address] May, [facility] [address] [id number] [address] [place] [address], [place] [address] May, [facility] [address] [id number] [address] [place] [address], [place] [address] May, [facility] [address] [id number] [address] [place] [address], [place] [address] May, [facility] [address] [id number] [address] [place] [address], [place] [address] May, [facility] [address] [id number] [address] [place] [address], [place] [address] May, [facility] [address] [id number] [address] [place] [address], [place] [address] May, [facility] [address] [id number] [address] [place] [address], [place] [address] May, [facility] [address] [id number] [address] [place] [address], [place] [address] May, [facility] [address] [id number] [address] [place] [address], [place] [address] 18 May, 2014 [facility] [address] [id number] [address] [place] [address], [place] [address] 18 May, 2014 [facility] [address] [id number] [address] [place] [address], [place] [address] 17 May, 2014 [facility] [address] [id number] [address] [place] [address], [place] [address] 16 May, 2014 [facility] [address] [id number] [address] [place] [address], [place] [address] 16 May, 2014 [facility] [address] [id number] [address] [place] [address], [place] [address] 15 May, 2014 [facility] [address] [id number] [address] [place] [address], [place] [address] 15 May, 2014 [facility] [address] [id number] [address] [place] [address], [place] [address] May, [facility] [address] [id number] [address] [place] [address], [place] [address] May, [facility] [address] [id number] [address] [place] [address], [place] [address] May, [facility] [address] [id number] [address] [place] [address], [place] [address] May, [facility] [address] [id number] [address] [place] [address], [place] [address] May, [facility] [address] [id number] [address] [place] [address], [place] [address] May, [facility] [address] [id number] [address] [place] [address], [place] [address] May, [facility] [address] [id number] [address] [place] [address], [place] [address] May, [facility] [address] [id number] [address] [place] [address], [place] [address] May, [facility] [address] [id number] [address] [place] [address], [place] [address] May, [facility] [address] [id number] [address] [place] [address], [place] [address] May, [facility] [address] [id number] [address] [place] [address], [place] [address] May, [facility] [address] [id number] [address] [place] [address], [place] [address] May, [facility] [address] [id number] [address] [place] [address], [place] [address] May, [facility] [address] [id number] [address] [place] [address], [place] [address] May, [facility] [address] [id number] [address] [place] [address], [place] [address] May, [facility] [address] [id number] [address] [place] [address], [place] [address] Apr, [facility] [address] [id number] [address] [place] [address], [place] [address] Apr, [facility] [address] [id number] [address] [place] [address], [place] [address] Apr, [facility] [address] [id number] [address] [place] [address], [place] [address] Apr, [facility] [address] [id number] [address] [place] [address], [place] [address] Apr, [facility] [address] [id number] [address] [place] [address], [place] [address] Apr, [facility] [address] [id number] [address] [place] [address], [place] [address] Apr, [facility] [address] [id number] [address] [place] [address], [place] [address] Apr, [facility] [address] [id number] [address] [place] [address], [place] [address] Apr, [facility] [address] [id number] [address] [place] [address], [place] [address] Apr, [facility] [address] [id number] [address] [place] [address], [place] [address] Mar, [facility] [address] [id number] [address] [place] [address], [place] [address] Mar, [facility] [address] [id number] [address] [place] [address] [address] Mar, [facility] [address] [id number] [address] [place] [address], [place] [address] 31 Mar, 2013 [facility] [address] [id number] [address] [place] [address], [place] [address] Mar, [facility] [address] [id number] [address] [place] [address], [place] [address] 30 Mar, 2014 [facility] [address] [id number] [address] [place] [address], [place] [address] Mar, [facility] [address] [id number] [address] [place] [address], [place] [address] Mar, [facility] [address] [id number] [address] [place] [address], [place] [address] Mar, [facility] [address] [id number] [address] [place] [address], [place] [address] Mar, [facility] [address] [id number] [address] [place] [id number] Mar, [facility] [address] [id number] [address] [place] [id number] Mar, [facility] [address] [id number] [address] [place] [id number] Mar, [facility] [address] [id number] [address] [place] [id number] Mar, 2013 [facility] [address] [id number] [address] [place] [id number] Mar, 2013 [facility] [address] [id number] [address] [place] [id number] Mar, [facility] [address] [id number] [address] [place] [id number] Mar, [facility] [address] [id number] [address] [place] [id number] Mar, 2013 [facility] [address] [id number] [address] [place] [address], [place] [id number] 02 Mar, 2013 [facility] [address] [id number] [address] [place] [address], [place] [id number] 02 Mar, 2013 [facility] [address] [id number] [address] [place] [address], [place] [id number] 05 Sep, 2013 [facility] [address] [id number] [address] [place] [address], [place] [id number] 05 Sep, 2013 [facility] [address] [id number] [address] [place] [address], [place] [id number] 04 Sep, 2013 [facility] [address] [id number] [address] [place] [address], [place] [id number] 04 Sep, 2013 [facility] [address] [id number] [address] [place] [address], [place] [id number] 03 Feb, 2013 [facility] [address] [id number] [address] [place] [address], [place] [id number] 03 Feb, 2013 [facility] [address] [id number] [address] [place] [address], [place] [id number] 02 Feb, 2013 [facility] [address] [id number] [address] [place] [address], [place] [id number] Feb, 2013 [facility] [address] [id number] [address] [place] [address], [place] [id number] 02 Feb, 2013 [facility] [address] [id number] [address] [place] [address], [place] [id number] Feb, 2013 [facility] [address] [id number] [address] [place] [address], [place] [id number] Jan, [facility] [address] [id number] [address] [place] [address], [place] [address] Jan, [facility] [address] [id number] [address] [place] [address], [place] [id number] Jan, [facility] [address] [id number] [address] [place] [address], [place] [id number] Jan, [facility] [address] [id number] [facility] [id number] Jan, [facility] [address] [id number] [address] [place] [address], [place] [id number] Jan, [facility] [address] [id number] [address] [place] [address], [place] [id number] Jan, [facility] [address] [id number] [address] [place] [address], [place] [id number] Jan, [facility] [address] [id number] [address] [place] [address], [place] [address] Jan, [facility] [address] [id number] [address] [place] [address], [place] [id number] Jan, [facility] [address] [id number] [address] [place] [address], [place] [id number] Jan, [facility] [address] [id number] [address] [place] [address], [place] [id number] Jan, [facility] [address] [id number] [address] [place] [address], [place] [id number] Dec, [facility] [address] [id number] [address] [place] [address], [place] [id number] Dec, [facility] [address] [id number] [address] [place] [address], [place] [id number] Dec, [facility] [address] [id number] [address] [place] [address], [place] [id number] Dec, [facility] [address] [id number] [address] [place] [address], [place] [address] Dec, [facility] [address] [id number] [address] [place] [address], [place] [address] Dec, [facility] [address] [id number] [address] [place] [address], [place] [id number] Dec, [facility] [address] [id number] [address] [place] [address], [place] [address] Dec, [facility] [address] [id number] [facility] [id number] Dec, [facility] [address] [id number] [address] [place] [address], [place] [id number] Dec, [facility] [address] [id number] [address] [place] [address], [place] [address] Dec, [facility] [address] [id number] [address] [place] [address], [place] [address] Dec, [facility] [address] [id number] [address] [place] [address], [place] [address] Nov, [facility] [address] [id number] [address] [place] [address], [place] [address] Nov, [facility] [address] [id number] [address] [place] [address], [place] [address] Nov, [facility] [address] [id number] [address] [place] [address], [place] [address] Nov, [facility] [address] [id number] [address] [place] [address], [place] [address] Nov, [facility] [address] [id number] [address] [place] [address], [place] [address] Nov, [facility] [address] [id number] [address] [place] [address], [place] [address] Nov, [facility] [address] [id number] [address] [place] [address], [place] [address] Nov, [facility] [address] [id number] [address] [place] [address], [place] [address] Nov, [facility] [address] [id number] [address] [place] [address], [place] [address] Nov, [facility] [address] [id number] [address] [place] [address], [place] [address] Nov, [facility] [address] [id number] [facility] [place] [address] Nov, [facility] [address] [id number] [address] [place] [address], [place] [address] Nov, [facility] [address] [id number] [address] [place] [address], [place] [address] Nov, [facility] [address] [id number] [address] [place] [address], [place] [address] October, [facility] [address] [id number] [address] [place] [address], [place] [address] October, [facility] [address] [id number] [address] [place] [address], [place] [address] October, [facility] [address] [id number] [address] [place] [address], [place] [address] October, [facility] [address] [id number] [address] [place] [address], [place] [address] October, [facility] [address] [id number] [address] [place] [address], [place] [address] October, [facility] [address] [id number] [address] [place] [address], [place] [address] October, [facility] [address] [id number] [address] [place] [address], [place] [address] October, [facility] [address] [id number] [address] [place] [address], [place] [address] October, [facility] [address] [id number] [address] [place] [address], [place] [address] October, [facility] [address] [id number] [address] [place] [address], [place] [address] October, [facility] [address] [id number] [address] [place] [address], [place] [address] October, [facility] [address] [id number] [address] [place] [address], [place] [address] Sep, [facility] [address] [id number] [facility] [place] [address] Sep, [facility] [address] [id number] [address] [place] [address], [place] [address] Sep, [facility] [address] [id number] [facility] [place] [address] Sep, [facility] [address] [id number] [address] [place] [address], [place] [address] Sep, [facility] [address] [id number] [address] [place] [address], [place] [address] Sep, [facility] [address] [id number] [address] [place] [address], [place] [address] Aug, [facility] [address] [id number] [address] [place] [address], [place] [address] Aug, [facility] [address] [id number] [address] [place] [address], [place] [address] Aug, [facility] [address] [id number] [address] [place] [address], [place] [address] Aug, [facility] [address] [id number] [address] [place] [address], [place] [address] Aug, [facility] [address] [id number] [address] [place] [address], [place] [address] Aug, [facility] [address] [id number] [address] [place] [address], [place] [address] Jul, [facility] [address] [id number] [address] [place] [address], [place] [address] Jul, [facility] [address] [id number] [address] [place] [address], [place] [address] Jul, [facility] [address] [id number] [address] [place] [address], [place] [address] Jul, [facility] [address] [id number] [address] [place] [address], [place] [address] 13 Jul, 2013 [facility] [address] [id number] [address] [place] [address], [place] [address] Jul, [facility] [address] [id number] [address] [place] [address], [place] [address] Jul, [facility] [address] [id number] [address] [place] [address], [place] [address] Jul, [facility] [address] [id number] [address] [place] [address], [place] [address] Jul, [facility] [address] [id number] [address] [place] [address], [place] [address] Jul, [facility] [address] [id number] [address] [place] [address], [place] [address] Jun, [facility] [address] [id number] [address] [place] [address], [place] [address] Jun, [facility] [address] [id number] [address] [place] [address], [place] [address] Jun, [facility] [address] [id number] [address] [place] [address], [place] [address] Jun, [facility] [address] [id number] [address] [place] [address], [place] [address] Jun, [facility] [address] [id number] [address] [place] [address], [place] [address] Jun, [facility] [address] [id number] [address] [place] [address], [place] [address] Jun, [facility] [address] [id number] [address] [place] [address], [place] [address] Jun, [facility] [address] [id number] [address] [place] [address], [place] [address] May, [facility] [address] [id number] [address] [place] [address], [place] [address] May, [facility] [address] [id number] [address] [place] [address], [place] [address] May, [facility] [address] [id number] [address] [place] [address], [place] [address] May, [facility] [address] [id number] [address] [place] [address], [place] [address] May, [facility] [address] [id number] [address] [place] [address], [place] [address] May, [facility] [address] [id number] [address] [place] [address], [place] [address] May, [facility] [address] [id number] [address] [place] [address], [place] [address] May, [facility] [address] [id number] [address] [place] [address], [place] [address] Apr, [facility] [address] [id number] [address] [place] [place] [address] Apr, [facility] [address] [id number] [address] [place] [address], [place] [address] Apr, [facility] [address] [id number] [address] [place] [address] Apr, [facility] [address] [id number] [address] [place] [address] Apr, [facility] [address] [id number] [address] [place] [address] Apr, [facility] [address] [id number] [address] [place] [address], [place] [address] Mar, [facility] [address] [id number] [address] [place] [address] Mar, [facility] [address] [id number] [address] [place] [address], [place] [address] Mar, [facility] [address] [id number] [address] [place] [address], [place] [address] Mar, [facility] [address] [id number] [address] [place] [address], [place] [address] Mar, [facility] [address] [id number] [address] [place] [address], [place] [address] Mar, [facility] [address] [id number] [address] [place] [address], [place] [address] Mar, [facility] [address] [id number] [address] [place] [address], [place] [address] 30 Feb, 2012 [facility] [address] [id number] [address] [place] [address], [place] [address] 30 Feb, 2013 [facility] [address] [id number] [address] [place] [address], [place] [address] 27 Feb, 2013 [facility] [address] [id number] [address] [place] [address], [place] [address] Feb, 2012 [facility] [address] [id number] [address] [place] [address], [place] [address] Feb, [facility] [address] [id number] [address] [place] [address], [place] [address] Feb, [facility] [address] [id number] [address] [place] [address], [place] [address] Jan, [facility] [address] [id number] [address] [place] [address], [place] [address] Jan, [facility] [address] [id number] [address] [place] [address], [place] [address] Jan, [facility] [address] [id number] [address] [place] [address], [place] [address] Jan, [facility] [address] [id number] [address] [place] [address], [place] [address] Jan, [facility] [address] [id number] [address] [place] [address], [place] [address] Jan, [facility] [address] [id number] [address] [place] [address], [place] [address] Jan, [facility] [address] [id number] [address] [place] [address], [place] [address] Jan, [facility] [address] [id number] [address] [place] [address], [place] [address] Jan, [facility] [address] [id number] [address] [place] [address], [place] [address] Dec, [facility] [address] [id number] [address] [place] [address], [place] [address] Dec, [facility] [address] [id number] [address] [place] [address], [place] [address] Dec, [facility] [address] [id number] [address] [place] [address], [place] [address] Dec, [facility] [address] [id number] [address] [place] [address], [place] [address] Dec, [facility] [address] [id number] [address] [place] [address], [place] [address] Dec, [facility] [address] [id number] [address] [place] [address], [place] [address] Dec, [facility] [address] [id number] [address] [place] [address], [place] [address] Dec, [facility] [address] [id number] [address] [place] [address], [place] [address] Dec, [facility] [address] [id number] [address] [place] [address], [place] [address] Dec, [facility] [address] [id number] [address] [place] [address], [place] [address] Dec, [facility] [address] [id number] [address] [place] [address], [place] [address] Dec, [facility] [address] [id number] [address] [place] [address], [place] [address] Dec, [facility] [address] [id number] [address] [place] [address], [place] [address] Nov, [facility] [address] [id number] [address] [place] [address], [place] [address] Nov, [facility] [address] [id number] [address] [place] [address], [place] [address] Nov, [facility] [address] [id number] [address] [place] [address], [place] [address] Nov, [facility] [address] [id number] [address] [place] [address], [place] [address] October, [facility] [address] [id number] [address] [place] [address], [place] [address] October, [facility] [address] [id number] [address] [place] [address], [place] [address] October, [facility] [address] [id number] [address] [place] [address], [place] [address] October, [facility] [address] [id number] [address] [place] [address], [place] [address] October, [facility] [address] [id number] [address] [place] [address], [place] [address] October, [facility] [address] [id number] [address] [place] [address], [place] [address] Sep, [facility] [address] [id number] [address] [place] [address], [place] [address] Sep, [facility] [address] [id number] [address] [place] [address], [place] [address] Sep, [facility] [address] [id number] [address] [place] [address], [place] [address] Sep, [facility] [address] [id number] [address] [place] [address], [place] [address] Sep, [facility] [address] [id number] [facility] [place] [address] 16 Sep, 2012 [facility] [address] [id number] [address] [place] [address], [place] [address] 12 Sep, 2012 [facility] [address] [id number] [address] [place] [address], [place] [address] Sep, [facility] [address] [id number] [address] [place] [address], [place] [address] Sep, [facility] [address] [id number] [address] [place] [address], [place] [address] Sep, [facility] [address] [id number] [address] [place] [address], [place] [address] Sep, [facility] [address] [id number] [address] [place] [address], [place] [address] Aug, [facility] [address] [id number] [address] [place] [address], [place] [address] 25 Aug, 2012 [facility] [address] [id number] [address] [place] [address], [place] [address] 25 Aug, 2012 [facility] [address] [id number] [address] [place] [address], [place] [address] 21 Aug, 2012 [facility] [address] [id number] [address] [place] [address], [place] [address] 19 Aug, 2012 [facility] [address] [id number] [address] [place] [address], [place] [address] 18 Aug, 2012 [facility] [address] [id number] [address] [place] [address], [place] [address] 17 Aug, 2012 [facility] [address] [id number] [address] [place] [address], [place] [address] 15 Aug, 2012 [facility] [address] [id number] [address] [place] [address], [place] [address] 15 Aug, 2012 [facility] [address] [id number] [address] [place] [address], [place] [address] Aug, [facility] [address] [id number] [address] [place] [address], [place] [address] Aug, [facility] [address] [id number] [address] [place] [address], [place] [address] Aug, [facility] [address] [id number] [address] [place] [address], [place] [address] Jul, [facility] [address] [id number] [address] [place] [address], [place] [address] Jul, [facility] [address] [id number] [address] [place] [address], [place] [address] Jul, [facility] [address] [id number] [address] [place] [address], [place] [address] Jul, [facility] [address] [id number] [address] [place] [address], [place] [address] Jul, [facility] [address] [id number] [address] [place] [address], [place] [address] Jul, [facility] [address] [id number] [address] [place] [address], [place] [address] Jul, [facility] [address] [id number] [address] [place] [address], [place] [address] Jul, [facility] [address] [id number] [address] [place] [address], [place] [address] Jul, [facility] [address] [id number] [address] [place] [address], [place] [address] Jul, [facility] [address] [id number] [address] [place] [address], [place] [address] May, [facility] [address] [id number] [place] [id number] May, [facility] [address] [id number] [address] [place] [address], [place] [address] May, [facility] [address] [id number] [address] [place] [address] May, [facility] [address] [facility] [id number] [address] [place] [address] May, [facility] [address] [facility] [id number] [address] [place] [address] Apr, [facility] [address] [id number] [place] [id number] Apr, [facility] [address] [facility] [id number] [address] [place] [address] Apr, [facility] [address] [facility] [id number] [address] [place] [id number] Mar, [facility] [place] [address] [id number] [place] [id number] Mar, [facility] [address] [facility] [id number] [address] [place] [id number] Mar, [facility] [place] [address] [id number] [place] [id number] Feb, [facility] [address] [facility] [id number] [address] [place] [place] [id number] Feb, [facility] [address] [facility] [id number] [address] [place] [id number] Feb, [facility] [place] [address] [id number] [place] [id number] Feb, [facility] [place] [address] [id number] [place] [id number] Feb, [facility] [place] [address] [id number] [place] [id number] Jan, [facility] [address] [id number] [address] [place] [address], [place] [id number] Jan, [facility] [place] [address] [id number] [place] [id number] Jan, [facility] [place] [address] [id number] [place] [id number] Jan, [facility] [place] [address] [id number] [place] [id number] Jan, [facility] [address] [facility] [id number] [address] [place] [address], [place] [id number] Jan, [facility] [address] [facility] [id number] [address] [place] [address], [place] [id number] Jan, [facility] [address] [facility] [id number] [address] [place] [address], [place] [id number] Aug, [facility] [place] [address] [id number] [place] [id number] Aug, [facility] [address] [facility] [id number] [address] [place] [address], [place] [id number] Jul, [facility] [address] [facility] [id number] [address] [place] [address], [place] [id number] Jul, [facility] [address] [facility] [id number] [address] [place] [address], [place] [id number] Jul, [facility] [place] [address] [id number] [place] [id number] Jul, [facility] [address] [facility] [id number] [address] [place] [address], [place] [id number] Jul, [facility] [place] [address] [id number] [place] [id number] Jul, [facility] [address] [facility] [id number] [address] [place] [address], [place] [id number] Jul, [facility] [place] [address] [id number] [place] [id number] Jul, [facility] [place] [address] [id number] [place] [id number] Jul, [facility] [place] [address] [id number] [place] [id number] Jul, [facility] [address] [facility] [id number] [address] [place] [address], [place] [id number] May, [facility] [address] [id number] [address] [place] [place] [phone] May, [facility] [address] [id number] [address] [place] [place] [id number] May, [facility] [address] [id number] [address] [place] [place] [id number] Apr, [facility] [address] [id number] [address] [place] [place] [phone] Jan, [facility] [address] [id number] [address] [place] [place] [id number] Jan, [facility] [address] [id number] [address] [place] [place] [id number] Dec, [facility] [address] [id number] [address] [place] [place] [id number] Dec, [facility] [address] [id number] [address] [place] [phone] May, [facility] [address] [id number] [address] [place] [place] [id number] Mar, [facility] [address] [id number] [address] [place] [id number] Mar, [facility] [address] [id number] [address] [place] [place] [phone] Jan, IMMUNIZATIONS No Known Immunizations SOCIAL HISTORY Never Assessed REASON FOR VISIT PLAN OF CARE VITAL SIGNS MEDICATIONS Unknown Medications RESULTS No Results PROCEDURES Procedure Date Ordered Result Body Site PROTHROMBIN TIME August 26, 2014 INSTRUCTIONS MEDICATIONS ADMINISTERED No Known Medications [...]
--- OUTSIDE RECORDS SUMMARY | 2020-01-28 12:58 | XMS REPORT ---
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 718011454 Problem History of venous thromboembolism V12.51 Active 797000387 Problem Cellulitis of unspecified part of limb L03.119 Active 786492184 Problem Gastroesophageal reflux disease without esophagitis K21.9 Active 603764031 Problem History of pulmonary embolism Z86.711 Active 987377044 Problem Pseudotumor cerebri G93.2 Active 76987963 Problem History of DVT (deep vein thrombosis) Z86.718 Active 063049107 ALLERGIES No Information ENCOUNTERS Encounter Location Date Diagnosis [place] [id number] [facility] [id number] [address] [place] [phone] Apr, skilled nursing (current) use of 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 Z79.01 [facility] [address] [facility] [id number] [address] [place] [phone] Apr, skilled nursing 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.01 [facility] [address] [facility] [id number] [address] [place] [phone] Apr, Cellulitis of unspecified pa rt of limb L03.119 ; Allergic contact dermatitis due to adhesives L23.1 and Chronic pain syndrome G89.4 [facility] [address] [facility] [id number] [address] [place] [phone] Apr, [place] [address] [place] [id number] [address] [phone] Apr, 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 ; Cellulitis of unspecified part of limb L03.119 ; Chronic pain syndrome G89.4 and Anxiety F41.9 [facility] [address] [place] [id number] [address] [place] [id number] 16 Apr, 2015 [facility] [address] [place] [id number] [place] [phone] Apr, [place] [address] [place] [id number] [place] [phone] Mar, [place] [address] [id number] Mar, [place] [address] [address] Mar, Sore throat J02.9 ; Gastroes ophageal reflux disease without esophagitis K21.9 ; Pseudotumor cerebri G93.2 ; Chronic pain syndrome G89.4 ; Choriocarcinoma C58 ; History of pulmonary embolism Z86.711 ; History of DVT (deep vein thrombosis) Z86.718 ; Anxiety F41.9 and Tachycardia R00.0 [place] [address] [address] Feb, Anxiety 300.00 and Chronic p ain 338.29 [place] [address] [place] [id number] [address] [place] [phone] Feb, [place] [address] [place] [id number] [address] [place] [phone] Feb, [place] [address] [address] Jan, 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 therapy V58.61 and Dysuria 788.1 [place] [address] [place] [id number] [place] [phone] Jan, Dysuria 788.1 [facility] [address] [place] [id number] [address] [place] [phone] Jan, Anxiety 300.00 and Chronic p ain 338.29 [facility] [address] [place] [id number] [place] [phone] Jan, [facility] [address] [address] Jan, [facility] [address] [address] Jan, [place] [address] [address] Dec, Weakness 780.79 [place] [address] [address] Dec, skilled nursing current use of ant icoagulant therapy V58.61 [place] [address] [address] Dec, Palpitations 785.1 ; Tremor 781.0 ; Weakness 780.79 ; skilled nursing current use of anticoagulant therapy V58.61 and Yeast vaginitis 112.1 [place] [address] [place] [id number] [address] [place] [phone] Dec, [place] [address] [address] Dec, Cervicalgia 723.1 ; Tachycar yoseph 785.0 ; Pseudotumor cerebri 348.2 and History of venous thromboembolism V12.51 [place] [address] [address] Nov, [place] [address] [address] Nov, [place] [address] [address] Nov, Tachycardia 785.0 ; Pseudotu mor cerebri 348.2 ; Anxiety 300.00 and History of venous thromboembolism V12.51 [facility] [address] [id number] [address] [place] [phone] Nov, [facility] [address] [id number] [address] [place] [place] [phone] 18 Nov, 2014 [facility] [address] [id number] [address] [place] [phone] Nov, [facility] [address] [id number] [address] [place] [phone] Nov, [facility] [address] [facility] [id number] [address] [place] [phone] Nov, [facility] [address] [facility] [id number] [address] [place] [phone] Nov, [facility] [address] [facility] [id number] [address] [place] [phone] Nov, [facility] [address] [facility] [id number] [address] [place] [phone] October, [facility] [address] [facility] [id number] [address] [place] [phone] October, [facility] [address] [place] [id number] [address] [place] [phone] October, Pain in thoracic spine 724.1 and Tachycardia 785.0 [facility] [address] [id number] [address] [place] [phone] October, [facility] [address] [id number] [address] [place] [phone] October, [facility] [address] [facility] [id number] [address] [place] [phone] 14 Sep, 2014 [facility] [address] [facility] [id number] [address] [place] [id number] Sep, [facility] [address] [id number] [facility] [place] [address] Aug, [facility] [address] [id number] [address] [place] [address], [place] [address] Aug, [facility] [address] [id number] [address] [place] [address], [place] [address] Aug, [facility] [address] [id number] [address] [place] [address], [place] [address] Aug, [facility] [address] [id number] [address] [place] [address], [place] [address] Aug, [facility] [address] [id number] [address] [place] [address], [place] [address] Aug, [facility] [address] [id number] [address] [place] [address], [place] [address] Aug, [facility] [address] [id number] [address] [place] [address], [place] [address] Aug, [facility] [address] [id number] [address] [place] [address], [place] [address] Aug, [facility] [address] [id number] [address] [place] [address], [place] [address] Aug, [facility] [address] [id number] [address] [place] [address], [place] [address] Aug, [facility] [address] [id number] [address] [place] [address], [place] [address] Aug, 2014 [facility] [address] [id number] [address] [place] [address], [place] [address] Jul, [facility] [address] [id number] [address] [place] [address], [place] [address] Jul, [facility] [address] [id number] [address] [place] [address], [place] [address] Jul, [facility] [address] [id number] [address] [place] [address], [place] [address] Jul, [facility] [address] [id number] [address] [place] [address], [place] [address] 23 Jul, 2014 [facility] [address] [id number] [address] [place] [address], [place] [id number] 23 Jul, 2014 [facility] [address] [id number] [address] [place] [address], [place] [address] 23 Jul, 2014 [facility] [address] [id number] [address] [place] [address], [place] [address] 23 Jul, 2014 [facility] [address] [id number] [address] [place] [address], [place] [id number] 20 Jul, 2014 [facility] [address] [id number] [address] [place] [address], [place] [address] 20 Jul, 2014 [facility] [address] [id number] [address] [place] [address], [place] [id number] 19 Jul, 2014 [facility] [address] [id number] [address] [place] [address], [place] [address] 19 Jul, 2014 [facility] [address] [id number] [address] [place] [address], [place] [address] 17 Jul, 2014 [facility] [address] [id number] [address] [place] [address], [place] [address] 17 Jul, 2014 [facility] [address] [id number] [address] [place] [address], [place] [id number] 16 Jul, 2014 [facility] [address] [id number] [address] [place] [address], [place] [address] 16 Jul, 2014 [facility] [address] [id number] [address] [place] [address], [place] [address] 16 Jul, 2014 [facility] [address] [id number] [address] [id number] 16 Jul, 2014 [facility] [address] [id number] [address] [place] [id number] 13 Jul, 2014 [facility] [address] [id number] [address] [place] [address], [place] [address] Jul, [facility] [address] [id number] [address] [place] [address], [place] [address] Jul, [facility] [address] [id number] [address] [place] [address], [place] [address] Jul, 2014 [facility] [address] [id number] [address] [place] [address], [place] [address] Jul, 2014 [facility] [address] [id number] [address] [place] [address], [place] [address] Jul, [facility] [address] [id number] [address] [place] [address], [place] [address] Jul, [facility] [address] [id number] [address] [place] [address], [place] [address] Jul, [facility] [address] [id number] [address] [place] [address], [place] [address] Jul, [facility] [address] [id number] [address] [place] [address], [place] [address] Jul, [facility] [address] [id number] [address] [place] [address], [place] [address] Jul, [facility] [address] [id number] [address] [place] [address], [place] [address] Jul, [facility] [address] [id number] [address] [place] [address], [place] [address] Jun, [facility] [address] [id number] [address] [place] [address], [place] [address] Jun, [facility] [address] [id number] [address] [place] [address], [place] [address] Jun, [facility] [address] [id number] [address] [place] [address], [place] [address] Jun, [facility] [address] [id number] [address] [place] [address], [place] [address] Jun, [facility] [address] [id number] [address] [place] [address], [place] [address] Jun, [facility] [address] [id number] [address] [place] [address], [place] [address] Jun, [facility] [address] [id number] [address] [place] [address], [place] [address] Jun, [facility] [address] [id number] [address] [place] [address], [place] [address] Jun, [facility] [address] [id number] [address] [place] [address], [place] [address] Jun, [facility] [address] [id number] [address] [place] [address], [place] [address] Jun, [facility] [address] [id number] [address] [place] [address], [place] [address] Jun, [facility] [address] [id number] [address] [place] [address], [place] [address] Jun, [facility] [address] [id number] [address] [place] [address], [place] [address] Jun, [facility] [address] [id number] [address] [place] [address], [place] [address] Jun, [facility] [address] [id number] [address] [place] [address], [place] [address] Jun, [facility] [address] [id number] [address] [place] [address], [place] [address] Jun, [facility] [address] [id number] [address] [place] [address], [place] [address] Jun, [facility] [address] [id number] [address] [place] [address], [place] [address] Jun, [facility] [address] [id number] [address] [place] [address], [place] [address] Jun, [facility] [address] [id number] [address] [place] [address], [place] [address] May, [facility] [address] [id number] [address] [place] [address], [place] [address] May, [facility] [address] [id number] [address] [place] [address], [place] [address] May, [facility] [address] [id number] [address] [place] [address], [place] [address] May, [facility] [address] [id number] [address] [place] [address], [place] [address] May, [facility] [address] [id number] [address] [place] [address], [place] [address] May, [facility] [address] [id number] [address] [place] [address], [place] [address] May, [facility] [address] [id number] [address] [place] [address], [place] [address] May, [facility] [address] [id number] [address] [place] [address], [place] [address] May, [facility] [address] [id number] [address] [place] [address], [place] [address] May, [facility] [address] [id number] [address] [place] [address], [place] [address] May, [facility] [address] [id number] [address] [place] [address], [place] [address] 18 May, 2014 [facility] [address] [id number] [address] [place] [address], [place] [address] 18 May, 2014 [facility] [address] [id number] [address] [place] [address], [place] [address] 17 May, 2014 [facility] [address] [id number] [address] [place] [address], [place] [address] 16 May, 2014 [facility] [address] [id number] [address] [place] [address], [place] [address] 16 May, 2014 [facility] [address] [id number] [address] [place] [address], [place] [address] 15 May, 2014 [facility] [address] [id number] [address] [place] [address], [place] [address] 15 May, 2014 [facility] [address] [id number] [address] [place] [address], [place] [address] May, [facility] [address] [id number] [address] [place] [address], [place] [address] May, [facility] [address] [id number] [address] [place] [address], [place] [address] May, [facility] [address] [id number] [address] [place] [address], [place] [address] May, [facility] [address] [id number] [address] [place] [address], [place] [address] May, [facility] [address] [id number] [address] [place] [address], [place] [address] May, [facility] [address] [id number] [address] [place] [address], [place] [address] May, [facility] [address] [id number] [address] [place] [address], [place] [address] May, [facility] [address] [id number] [address] [place] [address], [place] [address] May, [facility] [address] [id number] [address] [place] [address], [place] [address] May, [facility] [address] [id number] [address] [place] [address], [place] [address] May, [facility] [address] [id number] [address] [place] [address], [place] [address] May, [facility] [address] [id number] [address] [place] [address], [place] [address] May, [facility] [address] [id number] [address] [place] [address], [place] [address] May, [facility] [address] [id number] [address] [place] [address], [place] [address] May, [facility] [address] [id number] [address] [place] [address], [place] [address] May, [facility] [address] [id number] [address] [place] [address], [place] [address] Apr, [facility] [address] [id number] [address] [place] [address], [place] [address] Apr, [facility] [address] [id number] [address] [place] [address], [place] [address] Apr, [facility] [address] [id number] [address] [place] [address], [place] [address] Apr, [facility] [address] [id number] [address] [place] [address], [place] [address] Apr, [facility] [address] [id number] [address] [place] [address], [place] [address] Apr, [facility] [address] [id number] [address] [place] [address], [place] [address] Apr, [facility] [address] [id number] [address] [place] [address], [place] [address] Apr, [facility] [address] [id number] [address] [place] [address], [place] [address] Apr, [facility] [address] [id number] [address] [place] [address], [place] [address] Apr, [facility] [address] [id number] [address] [place] [address], [place] [address] Mar, [facility] [address] [id number] [address] [place] [address], [place] [address] Mar, [facility] [address] [id number] [address] [place] [address] [address] Mar, [facility] [address] [id number] [address] [place] [address], [place] [id number] 31 Mar, 2013 [facility] [address] [id number] [address] [place] [address], [place] [id number] Mar, [facility] [address] [id number] [address] [place] [address], [place] [id number] 30 Mar, 2014 [facility] [address] [id number] [address] [place] [address], [place] [id number] Mar, [facility] [address] [id number] [address] [place] [address], [place] [id number] Mar, [facility] [address] [id number] [address] [place] [address], [place] [id number] Mar, [facility] [address] [id number] [address] [place] [address], [place] [id number] Mar, [facility] [address] [id number] [address] [place] [id number] Mar, [facility] [address] [id number] [address] [place] [id number] Mar, [facility] [address] [id number] [address] [place] [id number] Mar, [facility] [address] [id number] [address] [place] [id number] Mar, 2013 [facility] [address] [id number] [address] [place] [id number] Mar, 2013 [facility] [address] [id number] [address] [place] [id number] Mar, [facility] [address] [id number] [address] [place] [id number] Mar, [facility] [address] [id number] [address] [place] [id number] Mar, 2013 [facility] [address] [id number] [address] [place] [address], [place] [id number] 02 Mar, 2013 [facility] [address] [id number] [address] [place] [address], [place] [id number] 02 Mar, 2013 [facility] [address] [id number] [address] [place] [address], [place] [id number] 05 Sep, 2013 [facility] [address] [id number] [address] [place] [address], [place] [id number] 05 Sep, 2013 [facility] [address] [id number] [address] [place] [address], [place] [id number] 04 Sep, 2013 [facility] [address] [id number] [address] [place] [address], [place] [id number] 04 Sep, 2013 [facility] [address] [id number] [address] [place] [address], [place] [id number] 03 Feb, 2013 [facility] [address] [id number] [address] [place] [address], [place] [id number] 03 Feb, 2013 [facility] [address] [id number] [address] [place] [address], [place] [id number] 02 Feb, 2013 [facility] [address] [id number] [address] [place] [address], [place] [id number] Feb, 2013 [facility] [address] [id number] [address] [place] [address], [place] [id number] 02 Feb, 2013 [facility] [address] [id number] [address] [place] [address], [place] [id number] Feb, 2013 [facility] [address] [id number] [address] [place] [address], [place] [id number] Jan, [facility] [address] [id number] [address] [place] [address], [place] [id number] Jan, [facility] [address] [id number] [address] [place] [address], [place] [id number] Jan, [facility] [address] [id number] [address] [place] [address], [place] [id number] Jan, [facility] [address] [id number] [facility] [place] [id number] Jan, [facility] [address] [id number] [address] [place] [address], [place] [id number] Jan, [facility] [address] [id number] [address] [place] [address], [place] [id number] Jan, [facility] [address] [id number] [address] [place] [address], [place] [id number] Jan, [facility] [address] [id number] [address] [place] [address], [place] [id number] Jan, [facility] [address] [address] [id number] [address] [place] [address], [place] [address] Jan, [facility] [address] [id number] [address] [place] [address], [place] [address] Jan, [facility] [address] [id number] [address] [place] [address], [place] [address] Jan, [facility] [address] [id number] [address] [place] [address], [place] [address] Dec, [facility] [address] [id number] [address] [place] [address], [place] [address] Dec, [facility] [address] [id number] [address] [place] [address], [place] [address] Dec, [facility] [address] [id number] [address] [place] [address], [place] [address] Dec, [facility] [address] [id number] [address] [place] [address], [place] [address] Dec, [facility] [address] [id number] [address] [place] [address], [place] [address] Dec, [facility] [address] [id number] [address] [place] [address], [place] [address] Dec, [facility] [address] [id number] [address] [place] [address], [place] [address] Dec, [facility] [address] [id number] [facility] [place] [address] Dec, [facility] [address] [id number] [address] [place] [address], [place] [address] Dec, [facility] [address] [id number] [address] [place] [address], [place] [address] Dec, [facility] [address] [id number] [address] [place] [address], [place] [address] Dec, [facility] [address] [id number] [address] [place] [address], [place] [address] Nov, [facility] [address] [id number] [address] [place] [address], [place] [address] Nov, [facility] [address] [id number] [address] [place] [address], [place] [address] Nov, [facility] [address] [id number] [address] [place] [address], [place] [address] Nov, [facility] [address] [id number] [address] [place] [address], [place] [address] Nov, [facility] [address] [id number] [address] [place] [address], [place] [address] Nov, [facility] [address] [id number] [address] [place] [address], [place] [address] Nov, [facility] [address] [id number] [address] [place] [address], [place] [address] Nov, [facility] [address] [id number] [address] [place] [address], [place] [address] Nov, [facility] [address] [id number] [address] [place] [address], [place] [address] Nov, [facility] [address] [id number] [address] [place] [address], [place] [address] Nov, [facility] [address] [id number] [facility] [place] [address] Nov, [facility] [address] [id number] [address] [place] [address], [place] [address] Nov, [facility] [address] [id number] [address] [place] [address], [place] [address] Nov, [facility] [address] [id number] [address] [place] [address], [place] [address] October, [facility] [address] [id number] [address] [place] [address], [place] [address] October, [facility] [address] [id number] [address] [place] [address], [place] [address] October, [facility] [address] [id number] [address] [place] [address], [place] [address] October, [facility] [address] [id number] [address] [place] [address], [place] [address] October, [facility] [address] [id number] [address] [place] [address], [place] [address] October, [facility] [address] [id number] [address] [place] [address], [place] [address] October, [facility] [address] [id number] [address] [place] [address], [place] [address] October, [facility] [address] [id number] [address] [place] [address], [place] [address] October, [facility] [address] [id number] [address] [place] [address], [place] [address] October, [facility] [address] [id number] [address] [place] [address], [place] [address] October, [facility] [address] [id number] [address] [place] [address], [place] [address] October, [facility] [address] [id number] [address] [place] [address], [place] [address] Sep, [facility] [address] [id number] [facility] [place] [address] Sep, [facility] [address] [id number] [address] [place] [address], [place] [address] Sep, [facility] [address] [id number] [facility] [place] [address] Sep, [facility] [address] [id number] [address] [place] [address], [place] [address] Sep, [facility] [address] [id number] [address] [place] [address], [place] [address] Sep, [facility] [address] [id number] [address] [place] [address], [place] [address] Aug, [facility] [address] [id number] [address] [place] [address], [place] [address] Aug, [facility] [address] [id number] [address] [place] [address], [place] [address] Aug, [facility] [address] [id number] [address] [place] [address], [place] [address] Aug, [facility] [address] [id number] [address] [place] [address], [place] [address] Aug, [facility] [address] [id number] [address] [place] [address], [place] [address] Aug, [facility] [address] [id number] [address] [place] [address], [place] [address] Jul, [facility] [address] [id number] [address] [place] [address], [place] [address] Jul, [facility] [address] [id number] [address] [place] [address], [place] [address] Jul, [facility] [address] [id number] [address] [place] [address], [place] [address] Jul, [facility] [address] [id number] [address] [place] [address], [place] [address] 13 Jul, 2013 [facility] [address] [id number] [address] [place] [address], [place] [address] Jul, [facility] [address] [id number] [address] [place] [address], [place] [address] Jul, [facility] [address] [id number] [address] [place] [address], [place] [address] Jul, [facility] [address] [id number] [address] [place] [address], [place] [address] Jul, [facility] [address] [id number] [address] [place] [address], [place] [address] Jul, [facility] [address] [id number] [address] [place] [address], [place] [address] Jun, [facility] [address] [id number] [address] [place] [address], [place] [address] Jun, [facility] [address] [id number] [address] [place] [address], [place] [address] Jun, [facility] [address] [id number] [address] [place] [address], [place] [address] Jun, [facility] [address] [id number] [address] [place] [address], [place] [address] Jun, [facility] [address] [id number] [address] [place] [address], [place] [address] Jun, [facility] [address] [id number] [address] [place] [address], [place] [address] Jun, [facility] [address] [id number] [address] [place] [address], [place] [address] Jun, [facility] [address] [id number] [address] [place] [address], [place] [address] May, [facility] [address] [id number] [address] [place] [address], [place] [address] May, [facility] [address] [id number] [address] [place] [address], [place] [address] May, [facility] [address] [id number] [address] [place] [address], [place] [address] May, [facility] [address] [id number] [address] [place] [address], [place] [address] May, [facility] [address] [id number] [address] [place] [address], [place] [address] May, [facility] [address] [id number] [address] [place] [address], [place] [address] May, [facility] [address] [id number] [address] [place] [address], [place] [address] May, [facility] [address] [id number] [address] [place] [address], [place] [address] Apr, [facility] [address] [id number] [address] [place] [id number] Apr, [facility] [address] [id number] [address] [place] [address], [place] [address] Apr, [facility] [address] [id number] [address] [place] [id number] Apr, [facility] [address] [id number] [address] [place] [id number] Apr, [facility] [address] [id number] [address] [place] [id number] Apr, [facility] [address] [id number] [address] [place] [address], [place] [address] Mar, [facility] [address] [id number] [address] [place] [id number] Mar, [facility] [address] [id number] [address] [place] [address], [place] [address] Mar, [facility] [address] [id number] [address] [place] [address], [place] [address] Mar, [facility] [address] [id number] [address] [place] [address], [place] [address] Mar, [facility] [address] [id number] [address] [place] [address], [place] [address] Mar, [facility] [address] [id number] [address] [place] [address], [place] [address] Mar, [facility] [address] [id number] [address] [place] [address], [place] [address] 30 Feb, 2012 [facility] [address] [id number] [address] [place] [address], [place] [address] 30 Feb, 2013 [facility] [address] [id number] [address] [place] [address], [place] [address] 27 Feb, 2013 [facility] [address] [id number] [address] [place] [address], [place] [address] Feb, 2012 [facility] [address] [id number] [address] [place] [address], [place] [address] Feb, [facility] [address] [id number] [address] [place] [address], [place] [address] Feb, [facility] [address] [id number] [address] [place] [address], [place] [address] Jan, [facility] [address] [id number] [address] [place] [address], [place] [address] Jan, [facility] [address] [id number] [address] [place] [address], [place] [address] Jan, [facility] [address] [id number] [address] [place] [address], [place] [address] Jan, [facility] [address] [id number] [address] [place] [address], [place] [address] Jan, [facility] [address] [id number] [address] [place] [address], [place] [address] Jan, [facility] [address] [id number] [address] [place] [address], [place] [address] Jan, [facility] [address] [id number] [address] [place] [address], [place] [address] Jan, [facility] [address] [id number] [address] [place] [address], [place] [address] Jan, [facility] [address] [id number] [address] [place] [address], [place] [address] Dec, [facility] [address] [id number] [address] [place] [address], [place] [address] Dec, [facility] [address] [id number] [address] [place] [address], [place] [address] Dec, [facility] [address] [id number] [address] [place] [address], [place] [address] Dec, [facility] [address] [id number] [address] [place] [address], [place] [address] Dec, [facility] [address] [id number] [address] [place] [address], [place] [address] Dec, [facility] [address] [id number] [address] [place] [address], [place] [address] Dec, [facility] [address] [id number] [address] [place] [address], [place] [address] Dec, [facility] [address] [id number] [address] [place] [address], [place] [address] Dec, [facility] [address] [id number] [address] [place] [address], [place] [address] Dec, [facility] [address] [id number] [address] [place] [address], [place] [address] Dec, [facility] [address] [id number] [address] [place] [address], [place] [address] Dec, [facility] [address] [id number] [address] [place] [address], [place] [address] Dec, [facility] [address] [id number] [address] [place] [address], [place] [address] Nov, [facility] [address] [id number] [address] [place] [address], [place] [address] Nov, [facility] [address] [id number] [address] [place] [address], [place] [address] Nov, [facility] [address] [id number] [address] [place] [address], [place] [address] Nov, [facility] [address] [id number] [address] [place] [address], [place] [address] October, [facility] [address] [id number] [address] [place] [address], [place] [address] October, [facility] [address] [id number] [address] [place] [address], [place] [address] October, [facility] [address] [id number] [address] [place] [address], [place] [address] October, [facility] [address] [id number] [address] [place] [address], [place] [address] October, [facility] [address] [id number] [address] [place] [address], [place] [address] October, [facility] [address] [id number] [address] [place] [address], [place] [address] Sep, [facility] [address] [id number] [address] [place] [address], [place] [address] Sep, [facility] [address] [id number] [address] [place] [address], [place] [address] Sep, [facility] [address] [id number] [address] [place] [address], [place] [address] Sep, [facility] [address] [id number] [address] [place] [address], [place] [address] Sep, [facility] [address] [id number] [facility] [place] [address] 16 Sep, 2012 [facility] [address] [id number] [address] [place] [address], [place] [address] 12 Sep, 2012 [facility] [address] [id number] [address] [place] [address], [place] [address] Sep, [facility] [address] [id number] [address] [place] [address], [place] [address] Sep, [facility] [address] [id number] [address] [place] [address], [place] [address] Sep, [facility] [address] [id number] [address] [place] [address], [place] [address] Sep, [facility] [address] [id number] [address] [place] [address], [place] [address] Aug, [facility] [address] [id number] [address] [place] [address], [place] [address] 25 Aug, 2012 [facility] [address] [id number] [address] [place] [address], [place] [address] 25 Aug, 2012 [facility] [address] [id number] [address] [place] [address], [place] [address] 21 Aug, 2012 [facility] [address] [id number] [address] [place] [address], [place] [address] 19 Aug, 2012 [facility] [address] [id number] [address] [place] [address], [place] [address] 18 Aug, 2012 [facility] [address] [id number] [address] [place] [address], [place] [address] 17 Aug, 2012 [facility] [address] [id number] [address] [place] [address], [place] [address] 15 Aug, 2012 [facility] [address] [id number] [address] [place] [address], [place] [address] 15 Aug, 2012 [facility] [address] [id number] [address] [place] [address], [place] [address] Aug, [facility] [address] [id number] [address] [place] [address], [place] [address] Aug, [facility] [address] [id number] [address] [place] [address], [place] [address] Aug, [facility] [address] [id number] [address] [place] [address], [place] [address] Jul, [facility] [address] [id number] [address] [place] [address], [place] [address] Jul, [facility] [address] [id number] [address] [place] [address], [place] [address] Jul, [facility] [address] [id number] [address] [place] [address], [place] [address] Jul, [facility] [address] [id number] [address] [place] [address], [place] [address] Jul, [facility] [address] [id number] [address] [place] [address], [place] [address] Jul, [facility] [address] [id number] [address] [place] [address], [place] [id number] Jul, [facility] [address] [id number] [address] [place] [address], [place] [id number] Jul, [facility] [address] [id number] [address] [place] [address], [place] [id number] Jul, [facility] [address] [id number] [address] [place] [address], [place] [id number] Jul, [facility] [address] [id number] [address] [place] [address], [place] [id number] May, [facility] [address] [id number] [place] [id number] May, [facility] [address] [id number] [address] [place] [address], [place] [id number] May, [facility] [address] [id number] [address] [place] [id number] May, [facility] [address] [facility] [id number] [address] [place] [id number] May, [facility] [address] [facility] [id number] [address] [place] [id number] Apr, [facility] [place] [address] [id number] [place] [id number] Apr, [facility] [address] [facility] [id number] [address] [place] [id number] Apr, [facility] [address] [facility] [id number] [address] [place] [id number] Mar, [facility] [place] [address] [id number] [place] [id number] Mar, [facility] [address] [facility] [id number] [address] [place] [id number] Mar, [facility] [place] [address] [id number] [place] [id number] Feb, [facility] [address] [facility] [id number] [address] [place] [id number] Feb, [facility] [address] [facility] [id number] [address] [place] [id number] Feb, [facility] [place] [address] [id number] [place] [id number] Feb, [facility] [place] [address] [id number] [place] [id number] Feb, [facility] [place] [address] [id number] [place] [id number] Jan, [facility] [address] [id number] [address] [place] [address], [place] [id number] Jan, [facility] [place] [address] [id number] [place] [id number] Jan, [facility] [place] [address] [id number] [place] [id number] Jan, [facility] [place] [address] [id number] [place] [id number] Jan, [facility] [address] [facility] [id number] [address] [place] [address], [place] [id number] Jan, [facility] [address] [facility] [id number] [address] [place] [address], [place] [id number] Jan, [facility] [address] [facility] [id number] [address] [place] [address], [place] [id number] Aug, [facility] [place] [address] [id number] [place] [id number] Aug, [facility] [address] [facility] [id number] [address] [place] [address], [place] [id number] Jul, [facility] [address] [facility] [id number] [address] [place] [address], [place] [id number] Jul, [facility] [address] [facility] [id number] [address] [place] [address], [place] [id number] Jul, [facility] [place] [address] [id number] [place] [id number] Jul, [facility] [address] [facility] [id number] [address] [place] [address], [place] [id number] Jul, [facility] [place] [address] [id number] [place] [id number] Jul, [facility] [address] [facility] [id number] [address] [place] [address], [place] [id number] Jul, [facility] [place] [address] [id number] [place] [id number] Jul, [facility] [place] [address] [id number] [place] [id number] Jul, [facility] [place] [address] [id number] [place] [id number] Jul, [facility] [address] [facility] [id number] [address] [place] [address], [place] [id number] May, [facility] [address] [id number] [address] [place] [id number] May, [facility] [address] [id number] 20 [address] [phone] May, [facility] [address] [id number] [address] [place] [phone] Apr, [facility] [address] [id number] [address] [place] [phone] Jan, [facility] [address] [id number] [address] [place] [phone] Jan, [facility] [address] [id number] [address] [place] [phone] Dec, [facility] [address] [id number] [address] [place] [phone] Dec, [facility] [address] [id number] [address] [place] [phone] May, [facility] [address] [id number] [address] [place] [phone] Mar, [facility] [address] [id number] [address] [place] [phone] Mar, [facility] [address] [id number] [address] [place] [phone] Jan, IMMUNIZATIONS No Known Immunizations SOCIAL HISTORY [...]
--- OUTSIDE RECORDS SUMMARY | 2020-01-28 12:58 | XMS REPORT ---
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 Z79.01 Active 303240587 Problem History of venous thromboembolism V12.51 Active 012505929 Problem Cellulitis of unspecified part of limb L03.119 Active 101940818 Problem Gastroesophageal reflux disease without esophagitis K21.9 Active 708248536 Problem History of pulmonary embolism Z86.711 Active 048988757 Problem Pseudotumor cerebri G93.2 Active 72925760 Problem History of DVT (deep vein thrombosis) Z86.718 Active 902593896 ALLERGIES No Information ENCOUNTERS Encounter Location Date Diagnosis [place] [id number] [facility] [id number] [address] [place] [address] Apr, snf (current) use of 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 Z79.01 [facility] [address] [facility] [id number] [address] [place] [address] Apr, snf 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.01 [facility] [address] [facility] [id number] [address] [place] [address] Apr, Cellulitis of unspecified pa rt of limb L03.119 ; Allergic contact dermatitis due to adhesives L23.1 and Chronic pain syndrome G89.4 [facility] [address] [facility] [id number] [address] [place] [address] Apr, [place] [address] [place] [id number] [address] [place] [address] Apr, 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 designer 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.01 ; Cellulitis of unspecified part of limb L03.119 ; Chronic pain syndrome G89.4 and Anxiety F41.9 [facility] [address] [place] [id number] [address] [place] [address] 16 Apr, 2015 [facility] [address] [place] [id number] [place] [address] Apr, [place] [address] [place] [id number] [place] [address] Mar, [place] [address] [address] Mar, [place] [address] [address] Mar, Sore throat J02.9 ; Gastroes ophageal reflux disease without esophagitis K21.9 ; Pseudotumor cerebri G93.2 ; Chronic pain syndrome G89.4 ; Choriocarcinoma C58 ; History of pulmonary embolism Z86.711 ; History of DVT (deep vein thrombosis) Z86.718 ; Anxiety F41.9 and Tachycardia R00.0 [place] [address] [address] Feb, Anxiety 300.00 and Chronic p ain 338.29 [place] [address] [place] [id number] [address] [place] [address] Feb, [place] [address] [place] [id number] [address] [place] [address] Feb, [place] [address] [address] Jan, 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 designer current use of ant icoagulant therapy V58.61 and Dysuria 788.1 [place] [address] [place] [id number] [place] [address] Jan, Dysuria 788.1 [facility] [address] [place] [id number] [address] [place] [address] Jan, Anxiety 300.00 and Chronic p ain 338.29 [facility] [address] [place] [id number] [place] [address] Jan, [facility] [address] [address] Jan, [facility] [address] [address] Jan, [place] [address] [address] Dec, Weakness 780.79 [place] [address] [address] Dec, snf current use of ant icoagulant therapy V58.61 [place] [address] [address] Dec, Palpitations 785.1 ; Tremor 781.0 ; Weakness 780.79 ; snf current use of anticoagulant therapy V58.61 and Yeast vaginitis 112.1 [place] [address] [place] [id number] [address] [place] [address] Dec, [place] [address] [address] Dec, Cervicalgia 723.1 ; Tachycar yoseph 785.0 ; Pseudotumor cerebri 348.2 and History of venous thromboembolism V12.51 [place] [address] [address] Nov, [place] [address] [address] Nov, [place] [address] [address] Nov, Tachycardia 785.0 ; Pseudotu mor cerebri 348.2 ; Anxiety 300.00 and History of venous thromboembolism V12.51 [facility] [address] [id number] [address] [place] [address] Nov, [facility] [address] [id number] [address] [place] [address] 18 Nov, 2014 [facility] [address] [id number] [address] [place] [address] Nov, [facility] [address] [id number] [address] [place] [address] Nov, [facility] [address] [facility] [id number] [address] [place] [address] Nov, [facility] [address] [facility] [id number] [address] [place] [address] Nov, [facility] [address] [facility] [id number] [address] [place] [address] Nov, [facility] [address] [facility] [id number] [address] [place] [address] October, [facility] [address] [facility] [id number] [address] [place] [address] October, [facility] [address] [place] [id number] [address] [place] [address] October, Pain in thoracic spine 724.1 and Tachycardia 785.0 [facility] [address] [id number] [address] [place] [address] October, [facility] [address] [id number] [address] [place] [address] October, [facility] [address] [facility] [id number] [address] [place] [address] 14 Sep, 2014 [facility] [address] [facility] [id number] [address] [place] [address] Sep, [facility] [address] [id number] [facility] [place] [address] Aug, [facility] [address] [id number] [address] [place] [address], [place] [address] Aug, [facility] [address] [id number] [address] [place] [address], [place] [address] Aug, [facility] [address] [id number] [address] [place] [address], [place] [address] Aug, [facility] [address] [id number] [address] [place] [address], [place] [address] Aug, [facility] [address] [id number] [address] [place] [address], [place] [address] Aug, [facility] [address] [id number] [address] [place] [address], [place] [address] Aug, [facility] [address] [id number] [address] [place] [address], [place] [address] Aug, [facility] [address] [id number] [address] [place] [address], [place] [address] Aug, [facility] [address] [id number] [address] [place] [address], [place] [address] Aug, [facility] [address] [id number] [address] [place] [address], [place] [address] Aug, [facility] [address] [id number] [address] [place] [address], [place] [address] Aug, 2014 [facility] [address] [id number] [address] [place] [address], [place] [address] Jul, [facility] [address] [id number] [address] [place] [address], [place] [address] Jul, [facility] [address] [id number] [address] [place] [address], [place] [address] Jul, [facility] [address] [id number] [address] [place] [address], [place] [address] Jul, [facility] [address] [id number] [address] [place] [address], [place] [address] 23 Jul, 2014 [facility] [address] [id number] [address] [place] [address], [place] [address] 23 Jul, 2014 [facility] [address] [id number] [address] [place] [address], [place] [address] 23 Jul, 2014 [facility] [address] [id number] [address] [place] [address], [place] [address] 23 Jul, 2014 [facility] [address] [id number] [address] [place] [address], [place] [address] 20 Jul, 2014 [facility] [address] [id number] [address] [place] [address], [place] [address] 20 Jul, 2014 [facility] [address] [id number] [address] [place] [address], [place] [address] 19 Jul, 2014 [facility] [address] [id number] [address] [place] [address], [place] [address] 19 Jul, 2014 [facility] [address] [id number] [address] [place] [address], [place] [address] 17 Jul, 2014 [facility] [address] [id number] [address] [place] [address], [place] [address] 17 Jul, 2014 [facility] [address] [id number] [address] [place] [address], [place] [address] 16 Jul, 2014 [facility] [address] [id number] [address] [place] [address], [place] [address] 16 Jul, 2014 [facility] [address] [id number] [address] [place] [address], [place] [address] 16 Jul, 2014 [facility] [address] [id number] [address] [place] [address] 16 Jul, 2014 [facility] [address] [id number] [address] [place] [address] 13 Jul, 2014 [facility] [address] [id number] [address] [place] [address], [place] [address] Jul, [facility] [address] [id number] [address] [place] [address], [place] [address] Jul, [facility] [address] [id number] [address] [place] [address], [place] [address] Jul, 2014 [facility] [address] [id number] [address] [place] [address], [place] [address] Jul, 2014 [facility] [address] [id number] [address] [place] [address], [place] [address] Jul, [facility] [address] [id number] [address] [place] [address], [place] [address] Jul, [facility] [address] [id number] [address] [place] [address], [place] [address] Jul, [facility] [address] [id number] [address] [place] [address], [place] [address] Jul, [facility] [address] [id number] [address] [place] [address], [place] [address] Jul, [facility] [address] [id number] [address] [place] [address], [place] [address] Jul, [facility] [address] [id number] [address] [place] [address], [place] [address] Jul, [facility] [address] [id number] [address] [place] [address], [place] [address] Jun, [facility] [address] [id number] [address] [place] [address], [place] [address] Jun, [facility] [address] [id number] [address] [place] [address], [place] [address] Jun, [facility] [address] [id number] [address] [place] [address], [place] [address] Jun, [facility] [address] [id number] [address] [place] [address], [place] [address] Jun, [facility] [address] [id number] [address] [place] [address], [place] [address] Jun, [facility] [address] [id number] [address] [place] [address], [place] [address] Jun, [facility] [address] [id number] [address] [place] [address], [place] [address] Jun, [facility] [address] [id number] [address] [place] [address], [place] [address] Jun, [facility] [address] [id number] [address] [place] [address], [place] [address] Jun, [facility] [address] [id number] [address] [place] [address], [place] [address] Jun, [facility] [address] [id number] [address] [place] [address], [place] [address] Jun, [facility] [address] [id number] [address] [place] [address], [place] [address] Jun, [facility] [address] [id number] [address] [place] [address], [place] [address] Jun, [facility] [address] [id number] [address] [place] [address], [place] [address] Jun, [facility] [address] [id number] [address] [place] [address], [place] [address] Jun, [facility] [address] [id number] [address] [place] [address], [place] [address] Jun, [facility] [address] [id number] [address] [place] [address], [place] [address] Jun, [facility] [address] [id number] [address] [place] [address], [place] [address] Jun, [facility] [address] [id number] [address] [place] [address], [place] [address] Jun, [facility] [address] [id number] [address] [place] [address], [place] [address] May, [facility] [address] [id number] [address] [place] [address], [place] [address] May, [facility] [address] [id number] [address] [place] [address], [place] [address] May, [facility] [address] [id number] [address] [place] [address], [place] [address] May, [facility] [address] [id number] [address] [place] [address], [place] [address] May, [facility] [address] [id number] [address] [place] [address], [place] [address] May, [facility] [address] [id number] [address] [place] [address], [place] [address] May, [facility] [address] [id number] [address] [place] [address], [place] [address] May, [facility] [address] [id number] [address] [place] [address], [place] [address] May, [facility] [address] [id number] [address] [place] [address], [place] [address] May, [facility] [address] [id number] [address] [place] [address], [place] [address] May, [facility] [address] [id number] [address] [place] [address], [place] [address] 18 May, 2014 [facility] [address] [id number] [address] [place] [address], [place] [address] 18 May, 2014 [facility] [address] [id number] [address] [place] [address], [place] [address] 17 May, 2014 [facility] [address] [id number] [address] [place] [address], [place] [address] 16 May, 2014 [facility] [address] [id number] [address] [place] [address], [place] [address] 16 May, 2014 [facility] [address] [id number] [address] [place] [address], [place] [address] 15 May, 2014 [facility] [address] [id number] [address] [place] [address], [place] [address] 15 May, 2014 [facility] [address] [id number] [address] [place] [address], [place] [address] May, [facility] [address] [id number] [address] [place] [address], [place] [address] May, [facility] [address] [id number] [address] [place] [address], [place] [address] May, [facility] [address] [id number] [address] [place] [address], [place] [address] May, [facility] [address] [id number] [address] [place] [address], [place] [address] May, [facility] [address] [id number] [address] [place] [address], [place] [address] May, [facility] [address] [id number] [address] [place] [address], [place] [address] May, [facility] [address] [id number] [address] [place] [address], [place] [address] May, [facility] [address] [id number] [address] [place] [address], [place] [address] May, [facility] [address] [id number] [address] [place] [address], [place] [address] May, [facility] [address] [id number] [address] [place] [address], [place] [address] May, [facility] [address] [id number] [address] [place] [address], [place] [address] May, [facility] [address] [id number] [address] [place] [address], [place] [address] May, [facility] [address] [id number] [address] [place] [address], [place] [address] May, [facility] [address] [id number] [address] [place] [address], [place] [address] May, [facility] [address] [id number] [address] [place] [address], [place] [address] May, [facility] [address] [id number] [address] [place] [address], [place] [address] Apr, [facility] [address] [id number] [address] [place] [address], [place] [address] Apr, [facility] [address] [id number] [address] [place] [address], [place] [address] Apr, [facility] [address] [id number] [address] [place] [address], [place] [address] Apr, [facility] [address] [id number] [address] [place] [address], [place] [address] Apr, [facility] [address] [id number] [address] [place] [address], [place] [address] Apr, [facility] [address] [id number] [address] [place] [address], [place] [address] Apr, [facility] [address] [id number] [address] [place] [address], [place] [address] Apr, [facility] [address] [id number] [address] [place] [address], [place] [address] Apr, [facility] [address] [id number] [address] [place] [address], [place] [address] Apr, [facility] [address] [id number] [address] [place] [address], [place] [address] Mar, [facility] [address] [id number] [address] [place] [address], [place] [address] Mar, [facility] [address] [id number] [address] [place], [place] [address] [address] Mar, [facility] [address] [id number] [address] [place] [address], [place] [address] 31 Mar, 2013 [facility] [address] [id number] [address] [place] [address], [place] [address] Mar, [facility] [address] [id number] [address] [place] [address], [place] [address] 30 Mar, 2014 [facility] [address] [id number] [address] [place] [address], [place] [address] Mar, [facility] [address] [id number] [address] [place] [address], [place] [address] Mar, [facility] [address] [id number] [address] [place] [address], [place] [address] Mar, [facility] [address] [id number] [address] [place] [address], [place] [address] Mar, [facility] [address] [id number] [address] [place] [address] Mar, [facility] [address] [id number] [address] [place] [address] Mar, [facility] [address] [id number] [address] [place] [address] Mar, [facility] [address] [id number] [address] [place] [address] Mar, 2013 [facility] [address] [id number] [address] [place] [address] Mar, 2013 [facility] [address] [id number] [address] [place] [address] Mar, [facility] [address] [id number] [address] [place] [id number] Mar, [facility] [address] [id number] [address] [place] [id number] Mar, 2013 [facility] [address] [id number] [address] [place] [address], [place] [address] 02 Mar, 2013 [facility] [address] [id number] [address] [place] [address], [place] [address] 02 Mar, 2013 [facility] [address] [id number] [address] [place] [address], [place] [address] 05 Sep, 2013 [facility] [address] [id number] [address] [place] [address], [place] [address] 05 Sep, 2013 [facility] [address] [id number] [address] [place] [address], [place] [address] 04 Sep, 2013 [facility] [address] [id number] [address] [place] [address], [place] [address] 04 Sep, 2013 [facility] [address] [id number] [address] [place] [address], [place] [address] 03 Feb, 2013 [facility] [address] [id number] [address] [place] [address], [place] [address] 03 Feb, 2013 [facility] [address] [id number] [address] [place] [address], [place] [address] 02 Feb, 2013 [facility] [address] [id number] [address] [place] [address], [place] [address] Feb, 2013 [facility] [address] [id number] [address] [place] [address], [place] [address] 02 Feb, 2013 [facility] [address] [id number] [address] [place] [address], [place] [address] Feb, 2013 [facility] [address] [id number] [address] [place] [address], [place] [address] Jan, [facility] [address] [id number] [address] [place] [address], [place] [address] Jan, [facility] [address] [id number] [address] [place] [address], [place] [address] Jan, [facility] [address] [id number] [address] [place] [address], [place] [address] Jan, [facility] [address] [id number] [facility] [address] Jan, [facility] [address] [id number] [address] [place] [address], [place] [address] Jan, [facility] [address] [id number] [address] [place] [address], [place] [address] Jan, [facility] [address] [id number] [address] [place] [address], [place] [address] Jan, [facility] [address] [id number] [address] [place] [address], [place] [address] Jan, [facility] [address] [id number] [address] [place] [address], [place] [address] Jan, [facility] [address] [id number] [address] [place] [address], [place] [address] Jan, [facility] [address] [id number] [address] [place] [address], [place] [address] Jan, [facility] [address] [id number] [address] [place] [address], [place] [address] Dec, [facility] [address] [id number] [address] [place] [address], [place] [address] Dec, [facility] [address] [id number] [address] [place] [address], [place] [address] Dec, [facility] [address] [id number] [address] [place] [address], [place] [address] Dec, [facility] [address] [id number] [address] [place] [address], [place] [address] Dec, [facility] [address] [id number] [address] [place] [address], [place] [address] Dec, [facility] [address] [id number] [address] [place] [address], [place] [address] Dec, [facility] [address] [id number] [address] [place] [address], [place] [address] Dec, [facility] [address] [id number] [facility] [address] Dec, [facility] [address] [id number] [address] [place] [address], [place] [address] Dec, [facility] [address] [id number] [address] [place] [address], [place] [address] Dec, [facility] [address] [id number] [address] [place] [address], [place] [address] Dec, [facility] [address] [id number] [address] [place] [address], [place] [address] Nov, [facility] [address] [id number] [address] [place] [address], [place] [address] Nov, [facility] [address] [id number] [address] [place] [address], [place] [address] Nov, [facility] [address] [id number] [address] [place] [address], [place] [address] Nov, [facility] [address] [id number] [address] [place] [address], [place] [address] Nov, [facility] [address] [id number] [address] [place] [address], [place] [address] Nov, [facility] [address] [id number] [address] [place] [address], [place] [address] Nov, [facility] [address] [id number] [address] [place] [address], [place] [address] Nov, [facility] [address] [id number] [address] [place] [address], [place] [address] Nov, [facility] [address] [id number] [address] [place] [address], [place] [address] Nov, [facility] [address] [id number] [address] [place] [address], [place] [address] Nov, [facility] [address] [id number] [facility] [place] [address] Nov, [facility] [address] [id number] [address] [place] [address], [place] [address] Nov, [facility] [address] [id number] [address] [place] [address], [place] [address] Nov, [facility] [address] [id number] [address] [place] [address], [place] [address] October, [facility] [address] [id number] [address] [place] [address], [place] [address] October, [facility] [address] [id number] [address] [place] [address], [place] [address] October, [facility] [address] [id number] [address] [place] [address], [place] [address] October, [facility] [address] [id number] [address] [place] [address], [place] [address] October, [facility] [address] [id number] [address] [place] [address], [place] [address] October, [facility] [address] [id number] [address] [place] [address], [place] [address] October, [facility] [address] [id number] [address] [place] [address], [place] [address] October, [facility] [address] [id number] [address] [place] [address], [place] [address] October, [facility] [address] [id number] [address] [place] [address], [place] [address] October, [facility] [address] [id number] [address] [place] [address], [place] [address] October, [facility] [address] [id number] [address] [place] [address], [place] [address] October, [facility] [address] [id number] [address] [place] [address], [place] [address] Sep, [facility] [address] [id number] [facility] [place] [address] Sep, [facility] [address] [id number] [address] [place] [address], [place] [address] Sep, [facility] [address] [id number] [facility] [place] [address] Sep, [facility] [address] [id number] [address] [place] [address], [place] [address] Sep, [facility] [address] [id number] [address] [place] [address], [place] [address] Sep, [facility] [address] [id number] [address] [place] [address], [place] [address] Aug, [facility] [address] [id number] [address] [place] [address], [place] [address] Aug, [facility] [address] [id number] [address] [place] [address], [place] [address] Aug, [facility] [address] [id number] [address] [place] [address], [place] [address] Aug, [facility] [address] [id number] [address] [place] [address], [place] [address] Aug, [facility] [address] [id number] [address] [place] [address], [place] [address] Aug, [facility] [address] [id number] [address] [place] [address], [place] [address] Jul, [facility] [address] [id number] [address] [place] [address], [place] [address] Jul, [facility] [address] [id number] [address] [place] [address], [place] [address] Jul, [facility] [address] [id number] [address] [place] [address], [place] [address] Jul, [facility] [address] [id number] [address] [place] [address], [place] [address] 13 Jul, 2013 [facility] [address] [id number] [address] [place] [address], [place] [address] Jul, [facility] [address] [id number] [address] [place] [address], [place] [address] Jul, [facility] [address] [id number] [address] [place] [address], [place] [address] Jul, [facility] [address] [id number] [address] [place] [address], [place] [address] Jul, [facility] [address] [id number] [address] [place] [address], [place] [address] Jul, [facility] [address] [id number] [address] [place] [address], [place] [address] Jun, [facility] [address] [id number] [address] [place] [address], [place] [address] Jun, [facility] [address] [id number] [address] [place] [address], [place] [address] Jun, [facility] [address] [id number] [address] [place] [address], [place] [address] Jun, [facility] [address] [id number] [address] [place] [address], [place] [address] Jun, [facility] [address] [id number] [address] [place] [address], [place] [address] Jun, [facility] [address] [id number] [address] [place] [address], [place] [address] Jun, [facility] [address] [id number] [address] [place] [address], [place] [address] Jun, [facility] [address] [id number] [address] [place] [address], [place] [address] May, [facility] [address] [id number] [address] [place] [address], [place] [address] May, [facility] [address] [id number] [address] [place] [address], [place] [address] May, [facility] [address] [id number] [address] [place] [address], [place] [address] May, [facility] [address] [id number] [address] [place] [address], [place] [address] May, [facility] [address] [id number] [address] [place] [address], [place] [address] May, [facility] [address] [id number] [address] [place] [address], [place] [address] May, [facility] [address] [id number] [address] [place] [address], [place] [address] May, [facility] [address] [id number] [address] [place] [address], [place] [address] Apr, [facility] [address] [id number] [address] [place] [address] Apr, [facility] [address] [id number] [address] [place] [address], [place] [address] Apr, [facility] [address] [id number] [address] [place] [address] Apr, [facility] [address] [id number] [address] [place] [address] Apr, [facility] [address] [id number] [address] [place] [address] Apr, [facility] [address] [id number] [address] [place] [address], [place] [address] Mar, [facility] [address] [id number] [address] [place] [address] Mar, [facility] [address] [id number] [address] [place] [address], [place] [address] Mar, [facility] [address] [id number] [address] [place] [address], [place] [address] Mar, [facility] [address] [id number] [address] [place] [address], [place] [address] Mar, [facility] [address] [id number] [address] [place] [address], [place] [address] Mar, [facility] [address] [id number] [address] [place] [address], [place] [address] Mar, [facility] [address] [id number] [address] [place] [address], [place] [address] 30 Feb, 2012 [facility] [address] [id number] [address] [place] [address], [place] [address] 30 Feb, 2013 [facility] [address] [id number] [address] [place] [address], [place] [address] 27 Feb, 2013 [facility] [address] [id number] [address] [place] [address], [place] [address] Feb, 2012 [facility] [address] [id number] [address] [place] [address], [place] [address] Feb, [facility] [address] [id number] [address] [place] [address], [place] [address] Feb, [facility] [address] [id number] [address] [place] [address], [place] [address] Jan, [facility] [address] [id number] [address] [place] [address], [place] [address] Jan, [facility] [address] [id number] [address] [place] [address], [place] [address] Jan, [facility] [address] [id number] [address] [place] [address], [place] [address] Jan, [facility] [address] [id number] [address] [place] [address], [place] [address] Jan, [facility] [address] [id number] [address] [place] [address], [place] [address] Jan, [facility] [address] [id number] [address] [place] [address], [place] [address] Jan, [facility] [address] [id number] [address] [place] [address], [place] [address] Jan, [facility] [address] [id number] [address] [place] [address], [place] [address] Jan, [facility] [address] [id number] [address] [place] [address], [place] [address] Dec, [facility] [address] [id number] [address] [place] [address], [place] [address] Dec, [facility] [address] [id number] [address] [place] [address], [place] [address] Dec, [facility] [address] [id number] [address] [place] [address], [place] [address] Dec, [facility] [address] [id number] [address] [place] [address], [place] [address] Dec, [facility] [address] [id number] [address] [place] [address], [place] [address] Dec, [facility] [address] [id number] [address] [place] [address], [place] [address] Dec, [facility] [address] [id number] [address] [place] [address], [place] [address] Dec, [facility] [address] [id number] [address] [place] [address], [place] [address] Dec, [facility] [address] [id number] [address] [place] [address], [place] [address] Dec, [facility] [address] [id number] [address] [place] [address], [place] [address] Dec, [facility] [address] [id number] [address] [place] [address], [place] [address] Dec, [facility] [address] [id number] [address] [place] [address], [place] [address] Dec, [facility] [address] [id number] [address] [place] [address], [place] [address] Nov, [facility] [address] [id number] [address] [place] [address], [place] [address] Nov, [facility] [address] [id number] [address] [place] [address], [place] [address] Nov, [facility] [address] [id number] [address] [place] [address], [place] [address] Nov, [facility] [address] [id number] [address] [place] [address], [place] [address] October, [facility] [address] [id number] [address] [place] [address], [place] [address] October, [facility] [address] [id number] [address] [place] [address], [place] [address] October, [facility] [address] [id number] [address] [place] [address], [place] [address] October, [facility] [address] [id number] [address] [place] [address], [place] [address] October, [facility] [address] [id number] [address] [place] [address], [place] [address] October, [facility] [address] [id number] [address] [place] [address], [place] [address] Sep, [facility] [address] [id number] [address] [place] [address], [place] [address] Sep, [facility] [address] [id number] [address] [place] [address], [place] [address] Sep, [facility] [address] [id number] [address] [place] [address], [place] [address] Sep, [facility] [address] [id number] [address] [place] [address], [place] [address] Sep, [facility] [address] [id number] [facility] [place] [address] 16 Sep, 2012 [facility] [address] [id number] [address] [place] [address], [place] [address] 12 Sep, 2012 [facility] [address] [id number] [address] [place] [address], [place] [address] Sep, [facility] [address] [id number] [address] [place] [address], [place] [address] Sep, [facility] [address] [id number] [address] [place] [address], [place] [address] Sep, [facility] [address] [id number] [address] [place] [address], [place] [address] Sep, [facility] [address] [id number] [address] [place] [address], [place] [address] Aug, [facility] [address] [id number] [address] [place] [address], [place] [address] 25 Aug, 2012 [facility] [address] [id number] [address] [place] [address], [place] [address] 25 Aug, 2012 [facility] [address] [id number] [address] [place] [address], [place] [address] 21 Aug, 2012 [facility] [address] [id number] [address] [place] [address], [place] [address] 19 Aug, 2012 [facility] [address] [id number] [address] [place] [address], [place] [address] 18 Aug, 2012 [facility] [address] [id number] [address] [place] [address], [place] [address] 17 Aug, 2012 [facility] [address] [id number] [address] [place] [address], [place] [address] 15 Aug, 2012 [facility] [address] [id number] [address] [place] [address], [place] [address] 15 Aug, 2012 [facility] [address] [id number] [address] [place] [address], [place] [address] Aug, [facility] [address] [id number] [address] [place] [address], [place] [address] Aug, [facility] [address] [id number] [address] [place] [address], [place] [address] Aug, [facility] [address] [id number] [address] [place] [address], [place] [address] Jul, [facility] [address] [id number] [address] [place] [address], [place] [address] Jul, [facility] [address] [id number] [address] [place] [address], [place] [address] Jul, [facility] [address] [id number] [address] [place] [address], [place] [address] Jul, [facility] [address] [id number] [address] [place] [address], [place] [address] Jul, [facility] [address] [id number] [address] [place] [address], [place] [address] Jul, [facility] [address] [id number] [address] [place] [address], [place] [address] Jul, [facility] [address] [id number] [address] [place] [address], [place] [address] Jul, [facility] [address] [id number] [address] [place] [address], [place] [address] Jul, [facility] [address] [id number] [address] [place] [address], [place] [address] Jul, [facility] [address] [id number] [address] [place] [address], [place] [address] May, [facility] [address] [id number] [place] [id number] May, [facility] [address] [id number] [address] [place] [address], [place] [address] May, [facility] [address] [id number] [address] [place] [address] May, [facility] [address] [facility] [id number] [address] [place] [address] May, [facility] [address] [facility] [id number] [address] [place] [address] Apr, [facility] [place] [address] [id number] [place] [id number] Apr, [facility] [address] [facility] [id number] [address] [place] [address] Apr, [facility] [address] [facility] [id number] [address] [place] [address] Mar, [facility] [place] [address] [id number] [place] [id number] Mar, [facility] [address] [facility] [id number] [address] [place] [address] Mar, [facility] [place] [address] [id number] [place] [id number] Feb, [facility] [address] [facility] [id number] [address] [place] [address] Feb, [facility] [address] [facility] [id number] [address] [place] [address] Feb, [facility] [place] [address] [id number] [place] [id number] Feb, [facility] [place] [address] [id number] [place] [id number] Feb, [facility] [place] [address] [id number] [place] [id number] Jan, [facility] [address] [id number] [address] [place] [address], [place] [address] Jan, [facility] [place] [address] [id number] [place] [id number] Jan, [facility] [place] [address] [id number] [place] [id number] Jan, [facility] [place] [address] [id number] [place] [id number] Jan, [facility] [address] [facility] [id number] [address] [place] [address], [place] [address] Jan, [facility] [address] [facility] [id number] [address] [place] [address], [place] [address] Jan, [facility] [address] [facility] [id number] [address] [place] [address], [place] [address] Aug, [facility] [place] [address] [id number] [place] [id number] Aug, [facility] [address] [facility] [id number] [address] [place] [address], [place] [id number] Jul, [facility] [address] [facility] [id number] [address] [place] [address], [place] [address] Jul, [facility] [address] [facility] [id number] [address] [place] [address], [place] [address] Jul, [facility] [place] [address] [id number] [place] [id number] Jul, [facility] [address] [facility] [id number] [address] [place] [address], [place] [address] Jul, [facility] [address] [id number] [place] [id number] Jul, [facility] [address] [facility] [id number] [address] [place] [address], [place] [address] Jul, [facility] [place] [address] [id number] [place] [id number] Jul, [facility] [address] [id number] [place] [id number] Jul, [facility] [address] [id number] [place] [id number] Jul, [facility] [address] [facility] [id number] [address] [place] [address], [place] [address] May, [facility] [address] [id number] [address] [place] [id number] May, [facility] [address] [id number] [address] [place] [id number] May, [facility] [address] [id number] [address] [place] [id number] Apr, [facility] [address] [id number] [address] [place] [id number] Jan, [facility] [address] [id number] [address] [place] [id number] Jan, [facility] [address] [id number] [address] [place] [id number] Dec, [facility] [address] [id number] [address] [place] [id number] Dec, [facility] [address] [id number] [address] [place] [id number] May, [facility] [address] [id number] [address] [place] [id number] Mar, [facility] [address] [id number] [address] [place] [id number] Mar, [facility] [address] [id number] [address] [place] [id number] Jan, IMMUNIZATIONS No Known Immunizations SOCIAL HISTORY [...]
--- OUTSIDE RECORDS SUMMARY | 2020-01-28 12:58 | XMS REPORT ---
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 Active 312208737 Problem History of venous thromboembolism V12.51 Active 493045531 Problem Cellulitis of unspecified part of limb L03.119 Active 510854457 Problem Gastroesophageal reflux disease without esophagitis K21.9 Active 426710019 Problem History of pulmonary embolism Z86.711 Active 458715019 Problem Pseudotumor cerebri G93.2 Active 34016672 Problem History of DVT (deep vein thrombosis) Z86.718 Active 105755495 ALLERGIES No Information ENCOUNTERS Encounter Location Date Diagnosis [place] [id number] [place] [facility] [place] [id number] [address] [place] [address] Apr, 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 [place] [id number] [place] [facility] [place] [id number] [address] [place] [address] Apr, 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.01 [facility] [address] [facility] [place] [id number] [address] [place] [address] Apr, Cellulitis of unspecified pa rt of limb L03.119 ; Allergic contact dermatitis due to adhesives L23.1 and Chronic pain syndrome G89.4 [facility] [address] [facility] [place] [id number] [address] [place] [address] Apr, [place] [address] [address] Apr, 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.01 ; Cellulitis of unspecified part of limb L03.119 ; Chronic pain syndrome G89.4 and Anxiety F41.9 [place] [address] [address] 16 Apr, 2015 [place] [address] [address] Apr, [place] [address] [address] Mar, [place] [address] [address] Mar, [place] [address] [address] Mar, Sore throat J02.9 ; Gastroes ophageal reflux disease without esophagitis K21.9 ; Pseudotumor cerebri G93.2 ; Chronic pain syndrome G89.4 ; Choriocarcinoma C58 ; History of pulmonary embolism Z86.711 ; History of DVT (deep vein thrombosis) Z86.718 ; Anxiety F41.9 and Tachycardia R00.0 [place] [address] [address] Feb, Anxiety 300.00 and Chronic p ain 338.29 [place] [address] [address] Feb, [place] [address] [address] Feb, [place] [address] [address] Jan, halfway current use of ant icoagulant therapy V58.61 and Dysuria 788.1 [place] [address] [address] Jan, Dysuria 788.1 [place] [address] [address] Jan, Anxiety 300.00 and Chronic p ain 338.29 [place] [address] [address] Jan, [place] [address] [address] Jan, [place] [address] [address] Jan, [place] [address] [address] Dec, Weakness 780.79 [place] [address] [address] Dec, 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 therapy V58.61 [place] [address] [address] Dec, Palpitations 785.1 ; Tremor 781.0 ; Weakness 780.79 ; halfway current use of anticoagulant therapy V58.61 and Yeast vaginitis 112.1 [place] [address] [address] Dec, [place] [address] [address] Dec, Cervicalgia 723.1 ; Tachycar yoseph 785.0 ; Pseudotumor cerebri 348.2 and History of venous thromboembolism V12.51 [place] [address] [address] Nov, [place] [address] [address] Nov, [place] [address] [address] Nov, Tachycardia 785.0 ; Pseudotu mor cerebri 348.2 ; Anxiety 300.00 and History of venous thromboembolism V12.51 [facility] [address] [id number] [address] [place] [address] Nov, [facility] [address] [id number] [address] [place] [address] 18 Nov, 2014 [facility] [address] [id number] [address] [place] [address] 16 Nov, 2014 [facility] [address] [id number] [address] [place] [address] Nov, [facility] [address] [id number] [address] [place] [address] Nov, [facility] [address] [id number] [address] [place] [address] Nov, [facility] [address] [id number] [address] [place] [address] Nov, [facility] [address] [id number] [address] [place] [address] October, [facility] [address] [id number] [address] [place] [address] October, [facility] [address] [facility] [place] [id number] [address] [place] [address] October, Pain in thoracic spine 724.1 and Tachycardia 785.0 [facility] [address] [id number] [address] [place] [address] October, [facility] [address] [id number] [address] [place] [address] October, [facility] [address] [id number] [address] [place] [address] 14 Sep, 2014 [facility] [address] [id number] [address] [place] [address] Sep, [facility] [address] [id number] [address] [place] [address] Aug, [facility] [address] [id number] [address] [place] [address], [place] [address] Aug, [facility] [address] [id number] [address] [place] [address], [place] [address] Aug, [facility] [address] [id number] [address] [place] [address], [place] [address] Aug, [facility] [address] [id number] [address] [place] [address], [place] [address] Aug, [facility] [address] [id number] [address] [place] [address], [place] [address] Aug, [facility] [address] [id number] [address] [place] [address], [place] [address] Aug, [facility] [address] [id number] [address] [place] [address], [place] [address] Aug, [facility] [address] [id number] [address] [place] [address], [place] [address] Aug, [facility] [address] [id number] [address] [place] [address], [place] [address] Aug, [facility] [address] [id number] [address] [place] [address], [place] [address] Aug, [facility] [address] [id number] [address] [place] [address], [place] [address] Aug, [facility] [address] [id number] [address] [place] [address], [place] [address] Jul, [facility] [address] [id number] [address] [place] [address], [place] [address] Jul, [facility] [address] [id number] [address] [place] [address], [place] [address] Jul, [facility] [address] [id number] [address] [place] [address], [place] [address] Jul, [facility] [address] [id number] [address] [place] [address], [place] [address] 23 Jul, 2014 [facility] [address] [id number] [address] [place] [address], [place] [address] 23 Jul, 2014 [facility] [address] [id number] [address] [place] [address], [place] [address] 23 Jul, 2014 [facility] [address] [id number] [address] [place] [address], [place] [address] 23 Jul, 2014 [facility] [address] [id number] [address] [place] [address], [place] [address] 20 Jul, 2014 [facility] [place] [address] [id number] [address] [place] [address], [place] [address] 20 Jul, 2014 [facility] [place] [address] [id number] [address] [place] [address], [place] [address] 19 Jul, 2014 [facility] [place] [address] [id number] [address] [place] [address], [place] [address] 19 Jul, 2014 [facility] [address] [id number] [address] [place] [address], [place] [address] 17 Jul, 2014 [facility] [address] [id number] [address] [place] [address], [place] [address] 17 Jul, 2014 [facility] [place] [facility] [address] [id number] [address] [place] [address], [place] [address] 16 Jul, 2014 [facility] [address] [id number] [address] [place] [address], [place] [address] 16 Jul, 2014 [facility] [address] [id number] [address] [place] [address], [place] [address] 16 Jul, 2014 [facility] [address] [id number] [address] [place] [address], [place] [address] 16 Jul, 2014 [facility] [address] [id number] [address] [place] [address], [place] [address] 13 Jul, 2014 [facility] [address] [id number] [address] [place] [address], [place] [address] 13 Jul, 2014 [facility] [address] [id number] [address] [place] [address], [place] [address] Jul, 2014 [facility] [address] [id number] [address] [place] [address], [place] [address] Jul, 2014 [facility] [address] [id number] [address] [place] [address], [place] [address] Jul, 2014 [facility] [address] [id number] [address] [place] [address], [place] [address] Jul, 2014 [facility] [address] [id number] [address] [place] [address], [place] [address] Jul, [facility] [place] [facility] [address] [id number] [address] [place] [address], [place] [address] Jul, [facility] [place] [address] [id number] [address] [place] [address], [place] [address] Jul, [facility] [place] [facility] [address] [id number] [address] [place] [address], [place] [address] Jul, [facility] [address] [id number] [address] [place] [address], [place] [address] Jul, [facility] [place] [facility] [address] [id number] [address] [place] [address], [place] [address] Jul, [facility] [place] [address] [id number] [address] [place] [address], [place] [address] Jun, [facility] [place] [address] [id number] [address] [place] [address], [place] [address] Jun, [facility] [place] [address] [id number] [address] [place] [address], [place] [address] Jun, [facility] [place] [facility] [address] [id number] [address] [place] [address], [place] [address] Jun, [facility] [address] [id number] [address] [place] [address] [place] [address] Jun, [facility] [address] [id number] [address] [place] [address], [place] [address] Jun, [facility] [address] [id number] [address] [place] [address], [place] [address] Jun, [facility] [address] [id number] [address] [place] [address], [place] [address] Jun, [facility] [address] [id number] [address] [place] [address], [place] [address] Jun, [facility] [address] [id number] [address] [place] [address], [place] [address] Jun, [facility] [address] [id number] [address] [place] [address], [place] [address] Jun, [facility] [address] [id number] [address] [place] [address], [place] [address] Jun, [facility] [address] [id number] [address] [place] [address], [place] [address] Jun, [facility] [address] [id number] [address] [place] [address], [place] [address] Jun, [facility] [address] [id number] [address] [place] [address], [place] [address] Jun, [facility] [address] [id number] [address] [place] [address], [place] [address] Jun, [facility] [address] [id number] [address] [place] [address], [place] [address] Jun, [facility] [address] [id number] [address] [place] [address], [place] [address] Jun, [facility] [address] [id number] [address] [place] [address], [place] [address] Jun, [facility] [address] [id number] [address] [place] [address], [place] [address] Jun, [facility] [address] [id number] [address] [place] [address], [place] [address] May, [facility] [address] [id number] [address] [place] [address], [place] [address] May, [facility] [address] [id number] [address] [place] [address], [place] [address] May, [facility] [address] [id number] [address] [place] [address], [place] [address] May, [facility] [address] [id number] [address] [place] [address], [place] [address] May, [facility] [address] [id number] [address] [place] [address], [place] [address] May, [facility] [address] [id number] [address] [place] [address], [place] [address] May, [facility] [address] [id number] [address] [place] [address], [place] [address] May, [facility] [address] [id number] [address] [place] [address], [place] [address] May, [facility] [address] [id number] [address] [place] [address], [place] [address] May, [facility] [address] [id number] [address] [place] [address], [place] [address] May, [facility] [address] [id number] [address] [place] [address], [place] [address] 18 May, 2014 [facility] [address] [id number] [address] [place] [address], [place] [address] 18 May, 2014 [facility] [place] [facility] [address] [id number] [address] [place] [address], [place] [address] 17 May, 2014 [facility] [address] [id number] [address] [place] [address], [place] [address] 16 May, 2014 [facility] [place] [facility] [address] [id number] [address] [place] [address], [place] [address] 16 May, 2014 [facility] [address] [id number] [facility] [place] [address] 15 May, 2014 [facility] [address] [id number] [address] [place] [address], [place] [address] 15 May, 2014 [facility] [address] [id number] [address] [place] [address], [place] [address] May, [facility] [address] [id number] [address] [place] [address], [place] [address] May, [facility] [address] [id number] [address] [place] [address], [place] [address] May, [facility] [address] [id number] [address] [place] [address], [place] [address] May, [facility] [address] [id number] [address] [place] [address], [place] [address] May, [facility] [address] [id number] [address] [place] [address], [place] [address] May, [facility] [address] [id number] [address] [place] [address], [place] [address] May, [facility] [address] [id number] [address] [place] [address], [place] [address] May, [facility] [address] [id number] [address] [place] [address], [place] [address] May, [facility] [address] [id number] [address] [place] [address], [place] [address] May, [facility] [address] [id number] [address] [place] [address], [place] [address] May, [facility] [address] [id number] [address] [place] [address], [place] [address] May, [facility] [place] [facility] [address] [id number] [address] [place] [address], [place] [address] May, [facility] [address] [id number] [address] [address] 05 May, 2014 [facility] [address] [id number] [address] [place] [address], [place] [address] May, [facility] [place] [facility] [address] [id number] [address] [place] [address], [place] [address] May, [facility] [address] [id number] [address] [place] [address], [place] [address] Apr, [facility] [place] [facility] [address] [id number] [address] [place] [address], [place] [address] Apr, [facility] [place] [facility] [address] [id number] [address] [place] [address], [place] [address] Apr, [facility] [place] [facility] [address] [id number] [address] [place] [address], [place] [address] Apr, [facility] [address] [id number] [address] [place] [address], [place] [address] Apr, [facility] [address] [id number] [address] [place] [address], [place] [address] Apr, [facility] [place] [facility] [address] [id number] [address] [place] [address], [place] [address] Apr, [facility] [address] [id number] [address] [place] [address], [place] [address] Apr, [facility] [place] [facility] [address] [id number] [address] [place] [address], [place] [address] Apr, [facility] [place] [facility] [address] [id number] [address] [place] [address], [place] [address] Apr, [facility] [place] [facility] [address] [id number] [address] [place] [address], [place] [address] Mar, [facility] [place] [facility] [address] [id number] [address] [place] [address], [place] [address] Mar, [facility] [place] [facility] [address] [id number] [address] [place] [address], [place] [address] Mar, [facility] [place] [facility] [address] [id number] [address] [place] [address], [place] [address] 31 Mar, 2013 [facility] [address] [id number] [address] [place] [address], [place] [address] Mar, 2013 [facility] [address] [id number] [address] [place] [address], [place] [address] Mar, 2013 [facility] [address] [id number] [address] [place] [address], [place] [address] Mar, 2013 [facility] [address] [id number] [address] [place] [address], [place] [address] Mar, 2013 [facility] [address] [id number] [address] [place] [address], [place] [address] Mar, 2013 [facility] [address] [id number] [address] [place] [address], [place] [address] Mar, 2013 [facility] [address] [id number] [address] [place] [address], [place] [address] Mar, 2013 [facility] [address] [id number] [address] [place] [address], [place] [address] Mar, [facility] [address] [id number] [address] [place] [address] Mar, [facility] [address] [id number] [address] [place] [address] Mar, [facility] [address] [id number] [address] [place] [address] Mar, 2013 [facility] [address] [id number] [address] [place] [address], [place] [address] Mar, [facility] [address] [id number] [address] [place] [address], [place] [address] Mar, [facility] [address] [id number] [address] [place] [address] Mar, 2013 [facility] [address] [id number] [address] [place] [address] Mar, [facility] [address] [id number] [address] [place] [address], [place] [address] 02 Mar, 2014 [facility] [address] [id number] [address] [place] [address], [place] [address] 05 Feb, 2013 [facility] [address] [id number] [address] [place] [address], [place] [address] 05 Sep, 2013 [facility] [address] [id number] [address] [place] [address], [place] [address] 04 Feb, 2013 [facility] [address] [id number] [address] [place] [address], [place] [address] 04 Feb, 2013 [facility] [address] [id number] [address] [place] [address], [place] [address] Feb, 2013 [facility] [address] [id number] [address] [place] [address], [place] [address] Feb, 2013 [facility] [address] [id number] [address] [place] [address], [place] [address] Feb, 2013 [facility] [address] [id number] [address] [place] [address], [place] [address] Feb, 2013 [facility] [address] [id number] [address] [place] [address], [place] [address] Feb, 2013 [facility] [address] [id number] [address] [place] [address], [place] [address] Feb, 2013 [facility] [address] [id number] [address] [place] [address], [place] [address] Jan, [facility] [address] [id number] [address] [place] [address], [place] [address] Jan, [facility] [address] [id number] [address] [place] [address], [place] [address] Jan, [facility] [address] [id number] [address] [place] [address], [place] [address] Jan, [facility] [address] [id number] [facility] [place] [address] Jan, [facility] [address] [id number] [facility] [place] [address] Jan, [facility] [address] [id number] [facility] [place] [address] Jan, [facility] [address] [id number] [facility] [place] [address] Jan, [facility] [address] [id number] [address] [place] [address], [place] [address] Jan, [facility] [address] [id number] [address] [place] [address], [place] [address] Jan, [facility] [address] [id number] [address] [place] [address], [place] [address] Jan, [facility] [address] [id number] [address] [place] [address], [place] [address] Jan, [facility] [address] [id number] [address] [place] [address], [place] [address] Dec, [facility] [address] [id number] [address] [place] [address], [place] [address] Dec, [facility] [address] [id number] [address] [place] [address], [place] [address] Dec, [facility] [address] [id number] [address] [place] [address], [place] [address] Dec, [facility] [address] [id number] [address] [place] [address], [place] [address] Dec, [facility] [address] [id number] [address] [place] [address], [place] [address] Dec, [facility] [address] [id number] [address] [place] [address], [place] [address] Dec, [facility] [address] [id number] [address] [place] [address], [place] [address] Dec, [facility] [address] [id number] [facility] [place] [address] Dec, 2013 [facility] [address] [id number] [address] [place] [address], [place] [address] Dec, [facility] [address] [id number] [address] [place] [address], [place] [address] Dec, 2013 [facility] [address] [id number] [address] [place] [address], [place] [address] Dec, [facility] [address] [id number] [address] [place] [address], [place] [address] Nov, [facility] [address] [id number] [address] [place] [address], [place] [address] Nov, [facility] [address] [id number] [address] [place] [address], [place] [address] Nov, [facility] [address] [id number] [address] [place] [address], [place] [address] Nov, [facility] [address] [id number] [address] [place] [address], [place] [address] Nov, [facility] [address] [id number] [address] [place] [address], [place] [address] Nov, [facility] [address] [id number] [address] [place] [address], [place] [address] Nov, [facility] [address] [id number] [address] [place] [address], [place] [address] Nov, [facility] [address] [id number] [address] [place] [address], [place] [address] Nov, [facility] [address] [id number] [address] [place] [address], [place] [address] Nov, [facility] [address] [id number] [address] [place] [address], [place] [address] Nov, [facility] [address] [id number] [address] [place] [address], [place] [address] Nov, [facility] [address] [id number] [address] [place] [address], [place] [address] Nov, [facility] [address] [id number] [address] [place] [address], [place] [address] Nov, [facility] [address] [id number] [address] [place] [address], [place] [address] October, [facility] [address] [id number] [address] [place] [address], [place] [address] October, [facility] [address] [id number] [address] [place] [address], [place] [address] October, [facility] [address] [id number] [address] [place] [address], [place] [address] October, [facility] [address] [id number] [address] [place] [address], [place] [address] October, [facility] [address] [id number] [address] [place] [address], [place] [address] October, [facility] [address] [id number] [address] [place] [address], [place] [address] October, [facility] [address] [id number] [address] [place] [address], [place] [address] October, [facility] [address] [id number] [address] [place] [address], [place] [address] October, [facility] [address] [id number] [address] [place] [address], [place] [address] October, [facility] [address] [id number] [address] [place] [address], [place] [address] October, [facility] [address] [id number] [address] [place] [address], [place] [address] October, [facility] [address] [id number] [address] [place] [address], [place] [address] Sep, [facility] [address] [id number] [facility] [place] [address] Sep, [facility] [address] [id number] [address] [place] [address], [place] [address] Sep, [facility] [address] [id number] [address] [place] [address], [place] [address] Sep, [facility] [address] [id number] [address] [place] [address], [place] [address] Sep, [facility] [address] [id number] [address] [place] [address], [place] [address] Sep, [facility] [address] [id number] [address] [place] [address], [place] [address] Aug, [facility] [address] [id number] [address] [place] [address], [place] [address] Aug, [facility] [address] [id number] [address] [place] [address], [place] [address] Aug, [facility] [address] [id number] [address] [place] [address], [place] [address] Aug, [facility] [address] [id number] [address] [place] [address], [place] [address] Aug, [facility] [address] [id number] [address] [place] [address], [place] [address] Aug, [facility] [address] [id number] [address] [place] [address], [place] [address] Jul, [facility] [address] [id number] [address] [place] [address], [place] [address] Jul, [facility] [address] [id number] [address] [place] [address], [place] [address] Jul, [facility] [address] [id number] [address] [place] [address], [place] [address] Jul, [facility] [address] [id number] [address] [place] [address], [place] [address] Jul, [facility] [address] [id number] [address] [place] [address], [place] [address] Jul, [facility] [address] [id number] [address] [place] [address], [place] [address] Jul, [facility] [address] [id number] [address] [place] [address], [place] [address] Jul, [facility] [address] [id number] [address] [place] [address], [place] [address] Jul, [facility] [address] [id number] [address] [place] [address], [place] [address] Jul, [facility] [address] [id number] [address] [place] [address], [place] [address] Jun, [facility] [address] [id number] [address] [place] [address], [place] [address] Jun, [facility] [address] [id number] [address] [place] [address], [place] [address] Jun, [facility] [address] [id number] [address] [place] [address], [place] [address] Jun, [facility] [address] [id number] [address] [place] [address], [place] [address] Jun, [facility] [address] [id number] [address] [place] [address], [place] [address] Jun, [facility] [address] [id number] [address] [place] [address], [place] [address] Jun, [facility] [address] [id number] [address] [place] [address], [place] [address] Jun, [facility] [address] [id number] [address] [place] [address], [place] [address] May, [facility] [address] [id number] [address] [place] [address], [place] [address] May, [facility] [address] [id number] [address] [place] [address], [place] [address] May, [facility] [address] [id number] [address] [place] [address], [place] [address] May, [facility] [address] [id number] [address] [place] [address], [place] [address] May, [facility] [address] [id number] [address] [place] [address], [place] [address] May, [facility] [address] [id number] [address] [place] [address], [place] [address] May, [facility] [address] [id number] [address] [place] [address], [place] [address] May, [facility] [address] [id number] [address] [place] [address], [place] [address] Apr, [facility] [address] [id number] [address] [place] [address], [place] [address] Apr, [facility] [address] [id number] [address] [place] [address], [place] [address] Apr, [facility] [address] [id number] [address] [place] [address], [place] [address] Apr, [facility] [address] [id number] [address] [place] [address], [place] [address] Apr, [facility] [address] [id number] [address] [place] [address], [place] [address] Apr, [facility] [address] [id number] [address] [place] [address], [place] [address] Mar, [facility] [address] [id number] [address] [place] [address], [place] [address] Mar, [facility] [address] [id number] [address] [place] [address], [place] [address] Mar, [facility] [address] [id number] [address] [place] [address], [place] [address] Mar, [facility] [address] [id number] [address] [place] [address], [place] [address] Mar, [facility] [address] [id number] [address] [place] [address], [place] [address] Mar, [facility] [address] [id number] [address] [place] [address], [place] [address] Mar, [facility] [address] [id number] [address] [place] [address], [place] [address] 30 Feb, 2013 [facility] [address] [id number] [address] [place] [address], [place] [address] 30 Feb, 2013 [facility] [address] [id number] [address] [place] [address], [place] [address] Feb, [facility] [address] [id number] [address] [place] [address], [place] [address] Feb, [facility] [address] [id number] [address] [place] [address], [place] [address] Feb, [facility] [address] [id number] [address] [place] [address], [place] [address] Feb, [facility] [address] [id number] [address] [place] [address], [place] [address] Jan, [facility] [address] [id number] [address] [place] [address], [place] [address] Jan, [facility] [address] [id number] [address] [place] [address], [place] [address] Jan, [facility] [address] [id number] [address] [place] [address], [place] [address] Jan, [facility] [address] [id number] [address] [place] [address], [place] [address] Jan, [facility] [address] [id number] [address] [place] [address], [place] [address] Jan, [facility] [address] [id number] [facility] [place] [address] Jan, [facility] [address] [id number] [address] [place] [address], [place] [address] Jan, [facility] [address] [id number] [address] [place] [address], [place] [address] Jan, [facility] [address] [id number] [address] [place] [address], [place] [address] Dec, [facility] [address] [id number] [address] [place] [address], [place] [address] Dec, [facility] [address] [id number] [address] [place] [address], [place] [address] Dec, [facility] [address] [id number] [address] [place] [address], [place] [address] Dec, [facility] [address] [id number] [address] [place] [address], [place] [address] Dec, [facility] [address] [id number] [address] [place] [address], [place] [address] Dec, [facility] [address] [id number] [address] [place] [address], [place] [address] Dec, [facility] [address] [id number] [address] [place] [address], [place] [address] Dec, [facility] [address] [id number] [address] [place] [address], [place] [address] Dec, [facility] [address] [id number] [address] [place] [address], [place] [address] Dec, [facility] [address] [id number] [address] [place] [address], [place] [address] Dec, [facility] [address] [id number] [address] [place] [address], [place] [address] Dec, [facility] [address] [id number] [address] [place] [address], [place] [address] Dec, [facility] [address] [id number] [address] [place] [address], [place] [address] Nov, [facility] [address] [id number] [address] [place] [address], [place] [address] Nov, [facility] [address] [id number] [address] [place] [address], [place] [address] Nov, [facility] [address] [id number] [address] [place] [address], [place] [address] Nov, [facility] [address] [id number] [address] [place] [address], [place] [address] October, [facility] [address] [id number] [address] [place] [address], [place] [address] October, [facility] [address] [id number] [address] [place] [address], [place] [address] October, [facility] [address] [id number] [address] [place] [address], [place] [address] October, [facility] [address] [id number] [address] [place] [address], [place] [address] October, [facility] [address] [id number] [address] [place] [address], [place] [address] October, [facility] [address] [id number] [address] [place] [address], [place] [address] Sep, [facility] [address] [id number] [address] [place] [address], [place] [address] Sep, [facility] [address] [id number] [address] [place] [address], [place] [address] Sep, [facility] [address] [id number] [address] [place] [address], [place] [address] Sep, [facility] [address] [id number] [address] [place] [address], [place] [address] Sep, [facility] [address] [id number] [address] [place] [address], [place] [address] 16 Sep, 2012 [facility] [address] [id number] [address] [place] [address], [place] [address] 12 Sep, 2012 [facility] [address] [id number] [address] [place] [address], [place] [address] 08 Sep, 2012 [facility] [address] [id number] [address] [place] [address], [place] [address] Sep, [facility] [address] [id number] [address] [place] [address], [place] [address] Sep, [facility] [address] [id number] [address] [place] [address], [place] [address] Sep, [facility] [address] [id number] [address] [place] [address], [place] [address] Aug, [facility] [address] [id number] [address] [place] [address], [place] [address] Aug, [facility] [address] [id number] [address] [place] [address], [place] [address] 25 Aug, 2012 [facility] [address] [id number] [address] [place] [address], [place] [address] 21 Aug, 2012 [facility] [address] [id number] [address] [place] [address], [place] [address] 19 Aug, 2012 [facility] [address] [id number] [address] [place] [address], [place] [address] 18 Aug, 2012 [facility] [address] [id number] [address] [place] [address], [place] [address] 17 Aug, 2012 [facility] [address] [id number] [address] [place] [address], [place] [address] 15 Aug, 2012 [facility] [address] [id number] [address] [place] [address], [place] [address] 15 Aug, 2012 [facility] [address] [id number] [address] [place] [address], [place] [address] 11 Aug, 2012 [facility] [address] [id number] [address] [place] [address], [place] [address] Aug, [facility] [address] [id number] [address] [place] [address], [place] [address] Aug, [facility] [address] [id number] [address] [place] [address], [place] [address] Jul, [facility] [address] [id number] [address] [place] [address], [place] [address] Jul, [facility] [address] [id number] [address] [place] [address], [place] [address] Jul, [facility] [address] [id number] [address] [place] [address], [place] [address] Jul, [facility] [address] [id number] [address] [place] [address], [place] [address] Jul, [facility] [address] [id number] [address] [place] [address], [place] [address] Jul, [facility] [address] [id number] [address] [place] [address], [place] [address] Jul, [facility] [address] [id number] [address] [place] [address], [place] [address] Jul, [facility] [address] [id number] [address] [place] [address], [place] [address] Jul, [facility] [address] [id number] [address] [place] [address] Jul, [facility] [address] [id number] [address] [place] [address], [place] [address] May, [facility] [address] [id number] [place] [id number] May, [facility] [address] [id number] [address] [place] [address] May, [facility] [address] [id number] [address] [place] [address] May, [facility] [address] [id number] [address] [place] [address] May, [facility] [address] [facility] [id number] [address] [place] [address] Apr, [facility] [address] [id number] [place] [id number] Apr, [facility] [address] [id number] [address] [place] [address] Apr, [facility] [address] [facility] [place] [id number] [address] [place] [address] Mar, [facility] [address] [id number] [place] [id number] Mar, [facility] [address] [facility] [place] [id number] [address] [place] [address] Mar, [facility] [address] [id number] [place] [id number] Feb, [facility] [address] [facility] [place] [id number] [address] [place] [id number] Feb, [facility] [address] [facility] [place] [id number] [address] [place] [id number] Feb, [facility] [address] [id number] [place] [id number] Feb, [facility] [address] [id number] [place] [id number] Feb, [facility] [address] [id number] [place] [id number] Jan, [facility] [address] [id number] [address] [place] [address], [place] [address] Jan, [facility] [address] [id number] [place] [id number] Jan, [facility] [address] [id number] [place] [id number] Jan, [facility] [address] [id number] [place] [id number] Jan, [facility] [address] [id number] [address] [place] [address], [place] [address] Jan, [facility] [address] [id number] [address] [place] [address], [place] [address] Jan, [facility] [address] [id number] [address] [place] [id number] Aug, [facility] [address] [id number] [place] [id number] Aug, [facility] [address] [id number] [address] [place] [address], [place] [address] Jul, [facility] [address] [facility] [facility] [place] [id number] [address] [place] [address], [place] [id number] Jul, [facility] [address] [facility] [place] [id number] [address] [place] [id number] Jul, [facility] [address] [id number] [place] [id number] Jul, [facility] [address] [facility] [place] [id number] [address] [place] [address], [place] [address] Jul, [facility] [address] [id number] [place] [id number] Jul, [facility] [address] [facility] [place] [id number] [address] [place] [address], [place] [address] Jul, [facility] [address] [id number] [place] [id number] Jul, [facility] [address] [id number] [place] [id number] Jul, [facility] [address] [id number] [place] [id number] Jul, [facility] [address] [facility] [place] [id number] [address] [place] [address], [place] [address] May, [facility] [address] [id number] [address] [place] [id number] 20 May, 2011 [facility] [address] [id number] [address] [place] [id number] May, [facility] [address] [id number] [address] [place] [id number] Apr, [facility] [address] [id number] [address] [place] [id number] Jan, [facility] [address] [id number] [address] [place] [id number] Jan, [facility] [address] [id number] [address] [place] [id number] Dec, [facility] [address] [id number] [address] [place] [id number] Dec, [facility] [address] [id number] [address] [place] [id number] 16 May, 2009 [facility] [address] [id number] [address] [place] [id number] Mar, [facility] [address] [id number] [address] [place] [id number] Mar, [facility] [address] [id number] [address] [place] [id number] Jan, IMMUNIZATIONS No Known Immunizations SOCIAL HISTORY [...]
--- OUTSIDE RECORDS SUMMARY | 2020-01-28 12:59 | XMS REPORT ---
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 Driver Name Role Phone Migration, Doctor Unavailable Unavailable PROBLEMS Type Condition ICD9-CM Code ISN02-DM Code Onset Dates Condition S tatus SNOMED Code Problem Chronic pain syndrome G89.4 Active 412389952 Problem Sore throat J02.9 Active 89453332 3 Problem Choriocarcinoma C58 Active 1881 39878 Problem correction current use of anticoagulant Z79.01 Active 419128519 Problem History of venous thromboembolism V12.51 Active 365593951 Problem Cellulitis of unspecified part of limb L03.119 Active 655891587 Problem Gastroesophageal reflux disease without esophagitis K21.9 Active 730818442 Problem History of pulmonary embolism Z86.711 Active 961146266 Problem Pseudotumor cerebri G93.2 Active 32833510 Problem History of DVT (deep vein thrombosis) Z86.718 Active 908477333 ALLERGIES Substance Reaction Event Type Date Status Xarelto bilat infiltrates from allergic rxn Drug Allergy 14 Ap r, 2014 Active ENCOUNTERS Encounter Location Date Diagnosis [facility] [address] [facility] [id number] [address] [place] [id number] Apr, correction (current) use of 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 Z79.01 [facility] [address] [id number] [address] [place] [id number] 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, 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 [facility] [address] [id number] [address] [place] [phone] Apr, Cellulitis of unspecified pa rt of limb L03.119 ; Allergic contact dermatitis due to adhesives L23.1 and Chronic pain syndrome G89.4 [facility] [address] [id number] [address] [place] [address] Apr, [facility] [address] [id number] Apr, correction 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.01 ; Cellulitis of unspecified part of limb L03.119 ; Chronic pain syndrome G89.4 and Anxiety F41.9 [facility] [address] [address] 16 Apr, 2015 [facility] [address] [address] Apr, [place] [address] [address] Mar, [place] [address] [address] Mar, [place] [address] [address] Mar, Sore throat J02.9 ; Gastroes ophageal reflux disease without esophagitis K21.9 ; Pseudotumor cerebri G93.2 ; Chronic pain syndrome G89.4 ; Choriocarcinoma C58 ; History of pulmonary embolism Z86.711 ; History of DVT (deep vein thrombosis) Z86.718 ; Anxiety F41.9 and Tachycardia R00.0 [place] [address] [address] Feb, Anxiety 300.00 and Chronic p ain 338.29 [place] [address] [address] Feb, [place] [address] [address] Feb, [place] [address] [address] 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, 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.61 and Dysuria 788.1 [place] [address] [address] Jan, Dysuria 788.1 [place] [address] [address] Jan, Anxiety 300.00 and Chronic p ain 338.29 [place] [address] [address] Jan, [place] [address] [id number] Jan, [place] [address] [address] Jan, [place] [address] [address] Dec, Weakness 780.79 [place] [address] [address] Dec, correction current use of ant icoagulant therapy V58.61 [place] [address] [address] Dec, Palpitations 785.1 ; Tremor 781.0 ; Weakness 780.79 ; correction current use of anticoagulant therapy V58.61 and Yeast vaginitis 112.1 [place] [address] [address] Dec, [place] [address] [address] Dec, Cervicalgia 723.1 ; Tachycar yoseph 785.0 ; Pseudotumor cerebri 348.2 and History of venous thromboembolism V12.51 [place] [address] [address] Nov, [place] [address] [address] Nov, [place] [address] [address] Nov, Tachycardia 785.0 ; Pseudotu mor cerebri 348.2 ; Anxiety 300.00 and History of venous thromboembolism V12.51 [facility] [address] [id number] [address] [place] [address] Nov, [facility] [address] [id number] [address] [place] [id number] 18 Nov, 2014 [facility] [address] [id number] [address] [place] [id number] 16 Nov, 2014 [facility] [address] [id number] [address] [place] [address] Nov, [facility] [address] [id number] [address] [place] [id number] Nov, [facility] [address] [id number] [address] [place] [phone] Nov, [facility] [address] [id number] [address] [place] [address] Nov, [facility] [address] [id number] [address] [place] [phone] October, [facility] [address] [id number] [address] [place] [phone] October, [facility] [address] [facility] [id number] [address] [place] [id number] October, Pain in thoracic spine 724.1 and Tachycardia 785.0 [facility] [address] [id number] [address] [place] [address] October, [facility] [address] [id number] [address] [place] [phone] October, [facility] [address] [id number] [address] [place] [address] 14 Sep, 2014 [facility] [address] [id number] [address] [place] [phone] Sep, [facility] [address] [id number] [address] [place] [address] Aug, [facility] [address] [id number] [address] [place] [address], [place] [address] Aug, [facility] [address] [id number] [address] [place] [address], [place] [address] Aug, [facility] [address] [id number] [address] [place] [address], [place] [address] Aug, [facility] [address] [id number] [address] [place] [address], [place] [address] Aug, [facility] [address] [id number] [address] [place] [address], [place] [address] Aug, [facility] [address] [id number] [address] [place] [address], [place] [address] Aug, [facility] [address] [id number] [address] [place] [address], [place] [id number] Aug, [facility] [address] [id number] [address] [place] [address], [place] [id number] Aug, [facility] [address] [id number] [address] [place] [address], [place] [address] Aug, [facility] [address] [id number] [address] [place] [address], [place] [id number] Aug, [facility] [address] [id number] [address] [place] [address], [place] [address] Aug, [facility] [address] [id number] [address] [place] [address], [place] [address] Jul, [facility] [address] [id number] [address] [place] [address], [place] [id number] Jul, [facility] [address] [id number] [address] [place] [address], [place] [address] Jul, [facility] [address] [id number] [address] [place] [address], [place] [id number] Jul, [facility] [address] [id number] [address] [place] [address], [place] [id number] 23 Jul, 2014 [facility] [address] [id number] [address] [place] [address], [place] [id number] 23 Jul, 2014 [facility] [address] [id number] [address] [place] [address], [place] [id number] 23 Jul, 2014 [facility] [address] [id number] [address] [place] [address], [place] [id number] 23 Jul, 2014 [facility] [address] [id number] [address] [place] [address], [place] [id number] 20 Jul, 2014 [facility] [address] [id number] [address] [place] [address], [place] [id number] 20 Jul, 2014 [facility] [address] [id number] [address] [place] [address], [place] [id number] 19 Jul, 2014 [facility] [address] [id number] [address] [place] [address], [place] [id number] 19 Jul, 2014 [facility] [address] [id number] [address] [place] [address], [place] [id number] 17 Jul, 2014 [facility] [address] [id number] [address] [place] [address], [place] [id number] 17 Jul, 2014 [facility] [address] [id number] [address] [place] [address], [place] [id number] 16 Jul, 2014 [facility] [address] [id number] [address] [place] [address], [place] [id number] 16 Jul, 2014 [facility] [address] [id number] [address] [place] [address], [place] [id number] 16 Jul, 2014 [facility] [address] [id number] [address] [place] [address], [place] [id number] 16 Jul, 2014 [facility] [address] [id number] [address] [place] [address], [place] [id number] 13 Jul, 2014 [facility] [address] [id number] [address] [place] [address], [place] [id number] Jul, 2014 [facility] [address] [id number] [address] [place] [address], [place] [id number] Jul, 2014 [facility] [address] [id number] [address] [place] [address], [place] [id number] Jul, 2014 [facility] [address] [id number] [address] [place] [address], [place] [id number] Jul, 2014 [facility] [address] [id number] [address] [place] [address], [place] [id number] Jul, 2014 [facility] [address] [id number] [address] [place] [address], [place] [address] Jul, [facility] [address] [id number] [address] [place] [address], [place] [id number] Jul, [facility] [address] [id number] [address] [place] [address], [place] [address] Jul, [facility] [address] [id number] [address] [place] [address], [place] [address] Jul, [facility] [address] [id number] [address] [place] [address], [place] [address] Jul, [facility] [address] [id number] [address] [place] [id number] Jul, [facility] [address] [id number] [address] [place] [phone] Jun, [facility] [address] [id number] [address] [place] [address], [place] [address] Jun, [facility] [address] [id number] [address] [place] [phone] Jun, [facility] [address] [id number] [address] [place] [id number] Jun, [facility] [address] [id number] [address] [place] [phone] Jun, [facility] [address] [id number] [address] [place] [address], [place] [id number] Jun, [facility] [address] [id number] [address] [place] [address], [place] [id number] Jun, [facility] [address] [id number] [address] [place] [address], [place] [id number] Jun, [facility] [address] [id number] [address] [place] [address], [place] [id number] Jun, [facility] [address] [id number] [address] [place] [address], [place] [id number] Jun, [facility] [address] [id number] [address] [place] [address], [place] [id number] Jun, [facility] [address] [id number] [address] [place] [address], [place] [id number] Jun, [facility] [address] [id number] [address] [place] [address], [place] [id number] Jun, [facility] [address] [id number] [address] [place] [address], [place] [id number] Jun, [facility] [address] [id number] [address] [place] [address], [place] [id number] Jun, [facility] [address] [id number] [address] [place] [address], [place] [id number] Jun, [facility] [address] [id number] [address] [place] [phone] Jun, [facility] [address] [id number] [address] [place] [address], [place] [address] Jun, [facility] [address] [id number] [address] [place] [address], [place] [address] Jun, [facility] [address] [id number] [address] [place] [address], [place] [address] Jun, [facility] [address] [id number] [facility] [place] [address] May, [facility] [address] [id number] [address] [place] [address], [place] [address] May, [facility] [address] [id number] [address] [place] [address], [place] [address] May, [facility] [address] [id number] [address] [place] [address], [place] [address] May, [facility] [address] [id number] [address] [place] [address], [place] [address] May, [facility] [address] [id number] [address] [place] [address], [place] [address] May, [facility] [address] [id number] [address] [place] [address], [place] [address] May, [facility] [address] [id number] [address] [place] [address], [place] [address] May, [facility] [address] [id number] [address] [place] [address], [place] [address] May, [facility] [address] [id number] [address] [place] [address], [place] [address] May, [facility] [address] [id number] [address] [place] [address], [place] [id number] May, [facility] [address] [id number] [address] [place] [address], [place] [address] 18 May, 2014 [facility] [address] [id number] [address] [place] [address], [place] [id number] 18 May, 2014 [facility] [address] [id number] [address] [place] [address], [place] [address] 17 May, 2014 [facility] [address] [id number] [address] [place] [address], [place] [id number] 16 May, 2014 [facility] [address] [id number] [address] [place] [address], [place] [id number] 16 May, 2014 [facility] [address] [id number] [facility] [place] [address] May, [facility] [address] [id number] [address] [place] [address], [place] [address] May, [facility] [address] [id number] [address] [place] [address], [place] [address] May, [facility] [address] [id number] [address] [place] [address], [place] [address] May, [facility] [address] [id number] [address] [place] [address], [place] [address] May, [facility] [address] [id number] [address] [place] [address], [place] [id number] May, [facility] [address] [id number] [address] [place] [address], [place] [id number] May, [facility] [address] [id number] [address] [place] [address], [place] [address] May, [facility] [address] [id number] [address] [place] [address], [place] [address] May, [facility] [address] [id number] [address] [place] [address], [place] [address] May, [facility] [address] [id number] [address] [place] [address], [place] [address] May, [facility] [address] [id number] [address] [place] [address], [place] [address] May, [facility] [address] [id number] [address] [place] [address], [place] [address] May, [facility] [address] [id number] [address] [place] [address], [place] [address] May, [facility] [address] [id number] [address] [place] [address], [place] [address] May, [facility] [address] [id number] [address] [place] [address], [place] [address] 05 May, 2014 [facility] [address] [id number] [address] [place] [address], [place] [address] May, [facility] [address] [id number] [address] [place] [address], [place] [address] May, [facility] [address] [id number] [address] [place] [address], [place] [address] Apr, [facility] [address] [id number] [address] [place] [address], [place] [address] Apr, [facility] [address] [id number] [address] [place] [address], [place] [address] Apr, [facility] [address] [id number] [address] [place] [address], [place] [address] Apr, [facility] [address] [id number] [address] [place] [address], [place] [address] Apr, [facility] [address] [id number] [address] [place] [address], [place] [address] Apr, [facility] [address] [id number] [address] [place] [address], [place] [id number] Apr, [facility] [address] [id number] [address] [place] [address], [place] [address] Apr, [facility] [address] [id number] [address] [place] [address], [place] [address] Apr, [facility] [address] [id number] [address] [place] [address], [place] [address] Apr, [facility] [address] [id number] [address] [place] [address], [place] [address] Mar, [facility] [address] [id number] [address] [place] [address], [place] [address] Mar, [facility] [address] [id number] [address] [place] [address], [place] [address] Mar, [facility] [address] [id number] [address] [place] [address], [place] [id number] Mar, 2013 [facility] [address] [id number] [address] [place] [address], [place] [address] Mar, 2013 [facility] [address] [id number] [address] [place] [address], [place] [id number] Mar, [facility] [address] [id number] [address] [place] [address], [place] [address] Mar, [facility] [address] [id number] [address] [place] [address], [place] [address] Mar, [facility] [address] [id number] [address] [place] [address], [place] [address] Mar, [facility] [address] [id number] [address] [place] [address], [place] [address] Mar, [facility] [address] [id number] [address] [place] [address], [place] [id number] Mar, [facility] [address] [id number] [address] [place] [address], [place] [id number] Mar, [facility] [address] [id number] [address] [place] [address], [place] [id number] Mar, [facility] [address] [id number] [address] [place] [address], [place] [id number] Mar, [facility] [address] [id number] [address] [place] [id number] Mar, 2013 [facility] [address] [id number] [address] [place] [address], [place] [id number] Mar, [facility] [address] [id number] [address] [place] [address], [place] [id number] Mar, [facility] [address] [id number] [address] [place] [address], [place] [id number] Mar, [facility] [address] [id number] [address] [place] [address], [place] [id number] Mar, [facility] [address] [id number] [address] [place] [address], [place] [id number] 02 Mar, 2014 [facility] [address] [id number] [address] [place] [address], [place] [id number] 05 Feb, 2013 [facility] [address] [id number] [address] [place] [address], [place] [id number] 05 Sep, 2013 [facility] [address] [id number] [address] [place] [address], [place] [id number] 04 Feb, 2013 [facility] [address] [id number] [address] [place] [address], [place] [id number] 04 Feb, 2013 [facility] [address] [id number] [address] [place] [address], [place] [id number] Feb, 2013 [facility] [address] [id number] [address] [place] [address], [place] [id number] Feb, 2013 [facility] [address] [id number] [address] [place] [address], [place] [id number] Feb, 2013 [facility] [address] [id number] [address] [place] [address], [place] [id number] Feb, 2013 [facility] [address] [id number] [address] [place] [address], [place] [id number] Feb, 2013 [facility] [address] [id number] [address] [place] [address], [place] [id number] Feb, 2013 [facility] [address] [id number] [address] [place] [address], [place] [id number] Jan, [facility] [address] [id number] [address] [place] [address], [place] [id number] Jan, [facility] [address] [id number] [address] [place] [address], [place] [id number] Jan, [facility] [address] [id number] [address] [place] [address], [place] [id number] Jan, [facility] [address] [id number] [facility] [place] [address] Jan, [facility] [address] [id number] [facility] [place] [id number] Jan, [facility] [address] [id number] [facility] [place] [id number] Jan, [facility] [address] [id number] [address] [place] [address], [place] [id number] Jan, [facility] [address] [id number] [address] [place] [address], [place] [id number] Jan, [facility] [address] [id number] [address] [place] [address], [place] [id number] Jan, [facility] [address] [id number] [address] [place] [address], [place] [id number] Jan, [facility] [address] [id number] [address] [place] [address], [place] [id number] Jan, [facility] [address] [id number] [address] [place] [address], [place] [id number] Dec, [facility] [address] [id number] [address] [place] [address], [place] [id number] Dec, [facility] [address] [id number] [address] [place] [address], [place] [id number] Dec, [facility] [address] [id number] [address] [place] [address], [place] [id number] Dec, [facility] [address] [id number] [address] [place] [address], [place] [id number] Dec, [facility] [address] [id number] [address] [place] [address], [place] [id number] Dec, [facility] [address] [id number] [address] [place] [address], [place] [id number] Dec, [facility] [address] [id number] [address] [place] [address], [place] [id number] Dec, [facility] [address] [id number] [address] [place] [id number] Dec, 2013 [facility] [address] [id number] [address] [place] [address], [place] [id number] Dec, [facility] [address] [id number] [address] [place] [address], [place] [id number] Dec, [facility] [address] [id number] [address] [place] [address], [place] [id number] Dec, [facility] [address] [id number] [address] [place] [address], [place] [id number] Nov, [facility] [address] [id number] [address] [place] [address], [place] [id number] Nov, [facility] [address] [id number] [address] [place] [address], [place] [id number] Nov, [facility] [address] [id number] [address] [place] [address], [place] [id number] Nov, [facility] [address] [id number] [address] [place] [address], [place] [id number] Nov, [facility] [address] [id number] [address] [place] [address], [place] [id number] Nov, [facility] [address] [id number] [address] [place] [address], [place] [id number] Nov, [facility] [address] [id number] [address] [place] [id number] Nov, [facility] [address] [id number] [address] [place] [address], [place] [id number] Nov, [facility] [address] [id number] [address] [place] [address], [place] [id number] Nov, [facility] [address] [id number] [address] [place] [address], [place] [id number] Nov, [facility] [address] [id number] [address] [place] [id number] Nov, [facility] [address] [id number] [address] [place] [address], [place] [id number] Nov, [facility] [address] [id number] [address] [place] [address], [place] [id number] Nov, [facility] [address] [id number] [address] [place] [address], [place] [id number] October, [facility] [address] [id number] [address] [place] [address], [place] [id number] October, [facility] [address] [id number] [address] [place] [address], [place] [id number] October, [facility] [address] [id number] [address] [place] [address], [place] [id number] October, [facility] [address] [id number] [address] [place] [address], [place] [id number] October, [facility] [address] [id number] [address] [place] [address], [place] [id number] October, [facility] [address] [id number] [address] [place] [address], [place] [id number] October, [facility] [address] [id number] [address] [place] [address], [place] [id number] October, [facility] [address] [id number] [address] [place] [address], [place] [id number] October, [facility] [address] [id number] [address] [place] [address], [place] [id number] October, [facility] [address] [id number] [address] [place] [address], [place] [id number] October, [facility] [address] [id number] [address] [place] [address], [place] [id number] October, [facility] [address] [id number] [address] [place] [address], [place] [id number] Sep, [facility] [address] [id number] [facility] [place] [id number] Sep, [facility] [address] [id number] [facility] [place] [id number] Sep, [facility] [address] [id number] [address] [place] [address], [place] [id number] Sep, [facility] [address] [id number] [address] [place] [address], [place] [id number] Sep, [facility] [address] [id number] [address] [place] [address], [place] [id number] Sep, [facility] [address] [id number] [address] [place] [address], [place] [id number] Aug, [facility] [address] [id number] [address] [place] [address], [place] [id number] Aug, [facility] [address] [id number] [address] [place] [address], [place] [id number] Aug, [facility] [address] [id number] [address] [place] [address], [place] [id number] Aug, [facility] [address] [id number] [address] [place] [address], [place] [id number] Aug, [facility] [address] [id number] [address] [place] [address], [place] [id number] Aug, [facility] [address] [id number] [address] [place] [address], [place] [id number] Jul, [facility] [address] [id number] [address] [place] [address], [place] [id number] Jul, [facility] [address] [id number] [address] [place] [address], [place] [id number] Jul, [facility] [address] [id number] [address] [place] [address], [place] [id number] Jul, [facility] [address] [id number] [address] [place] [address], [place] [id number] Jul, [facility] [address] [id number] [address] [place] [address], [place] [id number] Jul, [facility] [address] [id number] [address] [place] [address], [place] [id number] Jul, [facility] [address] [id number] [address] [place] [address], [place] [id number] Jul, [facility] [address] [id number] [address] [place] [address], [place] [id number] Jul, [facility] [address] [id number] [address] [place] [address], [place] [id number] Jul, [facility] [address] [id number] [address] [place] [address], [place] [id number] Jun, [facility] [address] [id number] [address] [place] [address], [place] [id number] Jun, [facility] [address] [id number] [address] [place] [address], [place] [id number] Jun, [facility] [address] [id number] [address] [place] [address], [place] [id number] Jun, [facility] [address] [id number] [address] [place] [address], [place] [id number] Jun, [facility] [address] [id number] [address] [place] [address], [place] [id number] Jun, [facility] [address] [id number] [address] [place] [address], [place] [id number] Jun, [facility] [address] [id number] [address] [place] [address], [place] [id number] Jun, [facility] [address] [id number] [address] [place] [address], [place] [id number] May, [facility] [address] [id number] [address] [place] [address], [place] [id number] May, [facility] [address] [id number] [address] [place] [address], [place] [id number] May, [facility] [address] [id number] [address] [place] [address], [place] [id number] May, [facility] [address] [id number] [address] [place] [address], [place] [id number] May, [facility] [address] [id number] [address] [place] [address], [place] [id number] May, [facility] [address] [id number] [address] [place] [address], [place] [id number] May, [facility] [address] [id number] [address] [place] [address], [place] [id number] May, [facility] [address] [id number] [address] [place] [address], [place] [id number] Apr, [facility] [address] [id number] [address] [place] [address], [place] [id number] Apr, [facility] [address] [id number] [address] [place] [address], [place] [id number] Apr, [facility] [address] [id number] [address] [place] [address], [place] [id number] Apr, [facility] [address] [id number] [address] [place] [address], [place] [id number] Apr, [facility] [address] [id number] [address] [place] [address], [place] [id number] Apr, [facility] [address] [id number] [address] [place] [address], [place] [id number] Mar, [facility] [address] [id number] [address] [place] [address], [place] [id number] Mar, [facility] [address] [id number] [address] [place] [address], [place] [id number] Mar, [facility] [address] [id number] [address] [place] [address], [place] [id number] Mar, [facility] [address] [id number] [address] [place] [address], [place] [id number] Mar, [facility] [address] [id number] [address] [place] [address], [place] [id number] Mar, [facility] [address] [id number] [address] [place] [address], [place] [id number] Mar, [facility] [address] [id number] [address] [place] [address], [place] [id number] 30 Feb, 2013 [facility] [address] [id number] [address] [place] [address], [place] [id number] 30 Feb, 2013 [facility] [address] [id number] [address] [place] [address], [place] [id number] Feb, [facility] [address] [id number] [address] [place] [address], [place] [id number] Feb, [facility] [address] [id number] [address] [place] [address], [place] [id number] Feb, [facility] [address] [id number] [address] [place] [address], [place] [id number] Feb, [facility] [address] [id number] [address] [place] [address], [place] [id number] Jan, [facility] [address] [id number] [address] [place] [address], [place] [id number] Jan, [facility] [address] [id number] [address] [place] [address], [place] [id number] Jan, [facility] [address] [id number] [address] [place] [address], [place] [id number] Jan, [facility] [address] [id number] [address] [place] [address], [place] [id number] Jan, [facility] [address] [id number] [address] [place] [address], [place] [id number] Jan, [facility] [address] [id number] [address] [place] [address], [place] [address] Jan, [facility] [address] [id number] [address] [place] [address], [place] [id number] Jan, [facility] [address] [id number] [address] [place] [address], [place] [id number] Jan, [facility] [address] [id number] [address] [place] [address], [place] [id number] Dec, [facility] [address] [id number] [address] [place] [address], [place] [address] Dec, [facility] [address] [id number] [address] [place] [address], [place] [id number] Dec, [facility] [address] [id number] [address] [place] [address], [place] [id number] Dec, [facility] [address] [id number] [address] [place] [address], [place] [id number] Dec, [facility] [address] [id number] [address] [place] [address], [place] [id number] Dec, [facility] [address] [id number] [address] [place] [address], [place] [id number] Dec, [facility] [address] [id number] [address] [place] [address], [place] [id number] Dec, [facility] [address] [id number] [address] [place] [address], [place] [id number] Dec, [facility] [address] [id number] [address] [place] [address], [place] [id number] Dec, [facility] [address] [id number] [address] [place] [address], [place] [id number] Dec, [facility] [address] [id number] [address] [place] [address], [place] [id number] Dec, [facility] [address] [id number] [address] [place] [address], [place] [id number] Dec, [facility] [address] [id number] [address] [place] [address], [place] [id number] Nov, [facility] [address] [id number] [address] [place] [address], [place] [id number] Nov, [facility] [address] [id number] [address] [place] [address], [place] [id number] Nov, [facility] [address] [id number] [address] [place] [address], [place] [id number] Nov, [facility] [address] [id number] [address] [place] [address], [place] [id number] October, [facility] [address] [id number] [address] [place] [address], [place] [id number] October, [facility] [address] [id number] [address] [place] [address], [place] [id number] October, [facility] [address] [id number] [address] [place] [address], [place] [id number] October, [facility] [address] [id number] [address] [place] [address], [place] [id number] October, [facility] [address] [id number] [address] [place] [address], [place] [id number] October, [facility] [address] [id number] [address] [place] [address], [place] [id number] Sep, [facility] [address] [id number] [address] [place] [address], [place] [id number] Sep, [facility] [address] [id number] [address] [place] [address], [place] [id number] Sep, [facility] [address] [id number] [address] [place] [address], [place] [id number] Sep, [facility] [address] [id number] [address] [place] [address], [place] [id number] Sep, [facility] [address] [id number] [address] [place] [address], [place] [id number] 16 Sep, 2012 [facility] [address] [id number] [address] [place] [address], [place] [id number] 12 Sep, 2012 [facility] [address] [id number] [address] [place] [address], [place] [id number] Sep, [facility] [address] [id number] [address] [place] [address], [place] [id number] Sep, [facility] [address] [id number] [address] [place] [address], [place] [id number] Sep, [facility] [address] [id number] [address] [place] [address], [place] [id number] Sep, [facility] [address] [id number] [address] [place] [address], [place] [id number] Aug, [facility] [address] [id number] [address] [place] [address], [place] [id number] Aug, [facility] [address] [id number] [address] [place] [address], [place] [id number] 25 Aug, 2012 [facility] [address] [id number] [address] [place] [address], [place] [id number] 21 Aug, 2012 [facility] [address] [id number] [address] [place] [address], [place] [id number] 19 Aug, 2012 [facility] [address] [id number] [address] [place] [address], [place] [id number] 18 Aug, 2012 [facility] [address] [id number] [address] [place] [address], [place] [id number] 17 Aug, 2012 [facility] [address] [id number] [address] [place] [address], [place] [id number] 15 Aug, 2012 [facility] [address] [id number] [address] [place] [address], [place] [id number] 15 Aug, 2012 [facility] [address] [id number] [address] [place] [address], [place] [id number] 11 Aug, 2012 [facility] [address] [id number] [address] [place] [address], [place] [id number] Aug, [facility] [address] [id number] [address] [place] [address], [place] [id number] Aug, [facility] [address] [id number] [address] [place] [address], [place] [id number] Jul, [facility] [address] [id number] [address] [place] [address], [place] [id number] Jul, [facility] [address] [id number] [address] [place] [address], [place] [id number] Jul, [facility] [address] [id number] [address] [place] [address], [place] [id number] Jul, [facility] [address] [id number] [address] [place] [address], [place] [id number] Jul, [facility] [address] [id number] [address] [place] [address], [place] [id number] Jul, [facility] [address] [id number] [address] [place] [address], [place] [id number] Jul, [facility] [address] [id number] [address] [place] [address], [place] [id number] Jul, [facility] [address] [id number] [address] [place] [address], [place] [id number] Jul, [facility] [address] [id number] [address] [place] [id number] Jul, [facility] [address] [id number] [address] [place] [address], [place] [id number] May, [facility] [address] [id number] [id number] May, [facility] [address] [id number] [address] [place] [address], [place] [id number] May, [facility] [address] [id number] [address] [place] [id number] May, [facility] [address] [id number] [address] [place] [id number] May, [facility] [address] [facility] [id number] [address] [place] [phone] Apr, [facility] [address] [id number] [place] [id number] Apr, [facility] [address] [id number] [address] [place] [phone] Apr, [facility] [address] [id number] [address] [place] [phone] Mar, [facility] [address] [id number] [place] [id number] Mar, [facility] [address] [facility] [id number] [address] [place] [phone] Mar, [facility] [address] [id number] [place] [id number] Feb, [facility] [address] [id number] [address] [place] [phone] Feb, [facility] [address] [facility] [id number] [address] [place] [phone] Feb, [facility] [address] [id number] [place] [id number] Feb, [facility] [address] [id number] [place] [id number] Feb, [facility] [address] [id number] [place] [id number] Jan, [facility] [address] [id number] [address] [place] [address], [place] [id number] Jan, [facility] [address] [id number] [place] [id number] Jan, [facility] [address] [id number] [place] [id number] Jan, [facility] [address] [id number] [place] [id number] Jan, [facility] [address] [id number] [address] [place] [phone] Jan, [facility] [address] [facility] [id number] [address] [place] [address], [place] [id number] Jan, [facility] [address] [facility] [id number] [address] [place] [phone] Aug, [facility] [address] [id number] [place] [id number] Aug, [facility] [address] [facility] [id number] [address] [place] [phone] Jul, [facility] [address] [facility] [id number] [address] [place] [address], [place] [id number] Jul, [facility] [address] [facility] [id number] [address] [place] [phone] Jul, [facility] [address] [id number] [place] [id number] Jul, [facility] [address] [facility] [id number] [address] [place] [phone] Jul, [facility] [address] [id number] [place] [id number] Jul, [facility] [address] [facility] [id number] [address] [place] [address], [place] [id number] Jul, [facility] [address] [id number] [place] [id number] Jul, [facility] [address] [id number] [place] [id number] Jul, [facility] [address] [id number] [place] [id number] Jul, [facility] [address] [facility] [id number] [address] [place] [address], [place] [id number] May, [facility] [address] [id number] [address] [place] [phone] May, [facility] [address] [id number] [address] [place] [phone] May, [facility] [address] [id number] [address] [place] [phone] Apr, [facility] [address] [id number] [address] [place] [phone] Jan, [facility] [address] [id number] [address] [place] [phone] Jan, [facility] [address] [id number] [address] [place] [phone] Dec, [facility] [address] [id number] [address] [place] [phone] Dec, [facility] [address] [id number] [address] [place] [phone] May, [facility] [address] [id number] [address] [place] [phone] Mar, [facility] [address] [id number] [address] [place] [phone] Mar, [facility] [address] [id number] [address] [place] [phone] Jan, IMMUNIZATIONS No Known Immunizations SOCIAL HISTORY Never Assessed REASON FOR VISIT [facility] [place] PLAN OF CARE VITAL SIGNS MEDICATIONS Medication Instructions Dosage Frequency Start Date End Date Duration S tatus Ofloxacin 0.3 % 3 drop by Otic route 2 times per day f or 10 day(s) Dec, Active Cipro HC 0.2-1 % 1 drop by Otic route 2 times per day for 7 day(s) Feb, Active Phenergan 25 mg 1 tablet by Oral route every 4 h ours PRN nausea with headache Mar, Active Questran 4 gram take 1 scoop dissolv ed in 2 to 6 ounces of water or noncarbonated beverage by Oral route 1 time per day Feb, Active Amoxicillin 500 mg 2 capsule by Oral route 2 times per day for 10 day(s) Sep, Active Coumadin 4 mg take 1 tablet by Ora l route 1 time per day take with 10mg tablet, 14mg total daily Jul, Act gauri Fioricet 50-325-40 mg 1 tablet by Oral route every 4 hours PRN Jul, Active Augmentin 875-125 mg 1 tablet by Oral route 2 times pe r day for 14 day(s) May, Active Azithromycin 250 mg 2 Tablet by Oral rou te on day 1 then take 1 daily for 4 days Sep, Active Ufvuyyfr-Vgzpmcicm-VZ 3.5-10,000-1 mg-unit/mL-% instill 4 drop by Otic route 3 times per day for 7 day(s) Jan, A ctive Hydrocodone-Acetaminophen 5-325 mg 1 tab let by Oral route every 4-6 hours PRN MUSTLAST 30 DAYS Aug, Active Diflucan 150 mg take 1 tablet by Oral route once 1 ti me per day for 2 days Jun, Active PredniSONE 10 mg 1 Tablet 1 time per day for 5 days 2014 Active Coumadin 10 mg 1 tablet by Oral rou te 1 time per day take with 3mg daily, 13mg total daily Jul, Active Flexeril 10 mg take 0.5 tablet by O ral route 3 times per day PRN as needed for muscle spasm May, Active Cipro 500 mg 1 tablet by Oral route every 12 hours for 10 day(s) Aug, Active Cipro 250 mg take 1 tablet by Oral route every 12 hour s for 3 days Feb, Active Pyridium 200 mg 1 tablet by Oral rou te 3 times per day for 3 day(s) for bladder pain. Take after meals. Aug, Active Amoxicillin 875 mg 1 tablet by Oral route 2 times per day for 10 day(s) Jun, Active RESULTS No Results PROCEDURES No Known procedures [...]
--- OUTSIDE RECORDS SUMMARY | 2020-01-28 12:59 | XMS REPORT ---
Author Author Heydi Candelario Doctor Organization [facility] Address Unknown Phone Unavailable Care Team Providers Care Cottrell Operator Name Role Phone Migration, Doctor Unavailable Unavailable PROBLEMS Type Condition ICD9-CM Code AFP18-KL Code Onset Dates Condition S tatus SNOMED Code Problem Chronic pain syndrome G89.4 Active 138328855 Problem Sore throat J02.9 Active 49349057 3 Problem Choriocarcinoma C58 Active 1881 95168 Problem alf current use of anticoagulant Z79.01 Active 952543969 Problem History of venous thromboembolism V12.51 Active 605586567 Problem Cellulitis of unspecified part of limb L03.119 Active 534630592 Problem Gastroesophageal reflux disease without esophagitis K21.9 Active 417786587 Problem History of pulmonary embolism Z86.711 Active 963722343 Problem Pseudotumor cerebri G93.2 Active 16467641 Problem History of DVT (deep vein thrombosis) Z86.718 Active 352720985 ALLERGIES No Information ENCOUNTERS Encounter Location Date Diagnosis [place] [address] [address] 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 [id number] [address] [place] [address] Apr, Cellulitis of unspecified pa rt of limb L03.119 ; Allergic contact dermatitis due to adhesives L23.1 and Chronic pain syndrome G89.4 [facility] [address] [facility] [id number] [address] [place] [address] Apr, [place] [address] [address] [facility] [id number] [address] [place] [address] Apr, alf 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.01 ; Cellulitis of unspecified part of limb L03.119 ; Chronic pain syndrome G89.4 and Anxiety F41.9 [place] [address] [place] [id number] [address] [place] [address] 16 Apr, 2015 [place] [address] [place] [id number] [place] [address] Apr, [place] [address] [address] Mar, [place] [address] [place] [id number] [place] [address] Mar, [place] [address] [address] Mar, Sore throat J02.9 ; Gastroes ophageal reflux disease without esophagitis K21.9 ; Pseudotumor cerebri G93.2 ; Chronic pain syndrome G89.4 ; Choriocarcinoma C58 ; History of pulmonary embolism Z86.711 ; History of DVT (deep vein thrombosis) Z86.718 ; Anxiety F41.9 and Tachycardia R00.0 [place] [address] [address] Feb, Anxiety 300.00 and Chronic p ain 338.29 [place] [address] [place] [id number] [address] [place] [address] Feb, [place] [address] [id number] [place] [address] Feb, [place] [address] [place] [id number] [place] [address] Jan, alf current use of ant icoagulant therapy V58.61 and Dysuria 788.1 [place] [address] [place] [id number] [address] [place] [address] Jan, Dysuria 788.1 [place] [address] [place] [id number] [place] [address] Jan, Anxiety 300.00 and Chronic p ain 338.29 [place] [address] [address] Jan, [facility] [address] [address] Jan, [place] [address] [address] Jan, [place] [address] [address] Dec, Weakness 780.79 [place] [address] [address] Dec, 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 V58.61 [place] [address] [address] Dec, Palpitations 785.1 ; Tremor 781.0 ; Weakness 780.79 ; alf current use of anticoagulant therapy V58.61 and Yeast vaginitis 112.1 [place] [address] [address] Dec, [place] [address] [address] Dec, Cervicalgia 723.1 ; Tachycar yoseph 785.0 ; Pseudotumor cerebri 348.2 and History of venous thromboembolism V12.51 [place] [address] [place] [id number] [address] [place] [address] Nov, [place] [address] [address] Nov, [place] [address] [address] Nov, Tachycardia 785.0 ; Pseudotu mor cerebri 348.2 ; Anxiety 300.00 and History of venous thromboembolism V12.51 [facility] [address] [id number] [address] [place] [address], [place] [address] Nov, [facility] [address] [id number] [address] [place] [address], [place] [address] 18 Nov, 2014 [facility] [address] [id number] [address] [place] [address], [place] [address] 16 Nov, 2014 [facility] [address] [id number] [address] [place] [address], [place] [address] Nov, [facility] [address] [id number] [address] [place] [address], [place] [address] Nov, [facility] [address] [id number] [address] [place] [address], [place] [address] Nov, [facility] [address] [id number] [address] [place] [address], [place] [address] Nov, [facility] [address] [id number] [address] [place] [address] October, [facility] [address] [id number] [address] [place] [address] October, [facility] [address] [id number] [address] [place] [address] October, Pain in thoracic spine 724.1 and Tachycardia 785.0 [facility] [address] [id number] [address] [place] [address] October, [facility] [address] [id number] [address] [place] [address] October, [facility] [address] [id number] [address] [place] [address] Sep, [facility] [address] [id number] [address] [place] [address] Sep, [facility] [address] [id number] [address] [place] [address] Aug, [facility] [address] [id number] [address] [place] [address], [place] [address] Aug, [facility] [address] [id number] [address] [place] [address], [place] [address] Aug, [facility] [address] [id number] [address] [place] [address], [place] [address] 17 Aug, 2014 [facility] [address] [id number] [address] [place] [address], [place] [address] Aug, [facility] [address] [id number] [address] [place] [address], [place] [address] 16 Aug, 2014 [facility] [address] [id number] [address] [place] [address], [place] [address] Aug, [facility] [address] [id number] [address] [place] [address], [place] [address] Aug, [facility] [address] [id number] [address] [place] [address], [place] [address] Aug, 2014 [facility] [address] [id number] [address] [place] [address], [place] [address] Aug, [facility] [address] [id number] [address] [place] [address], [place] [address] Aug, [facility] [address] [id number] [address] [place] [address], [place] [address] Aug, [facility] [address] [id number] [address] [place] [address], [place] [address] Jul, 2014 [facility] [address] [id number] [address] [place] [address], [place] [address] Jul, 2014 [facility] [address] [id number] [address] [place] [address], [place] [address] Jul, 2014 [facility] [address] [id number] [address] [place] [address], [place] [address] Jul, 2014 [facility] [address] [id number] [address] [place] [address], [place] [address] b, 2014 [facility] [address] [id number] [address] [place] [address], [place] [address] 23 Jul, 2014 [facility] [address] [id number] [address] [place] [address], [place] [address] 23 Jul, 2014 [facility] [address] [id number] [address] [place] [address], [place] [address] 23 Jul, 2014 [facility] [address] [id number] [address] [place] [address], [place] [address] 20 Jul, 2014 [facility] [address] [id number] [address] [place] [address], [place] [address] 20 Jul, 2014 [facility] [address] [id number] [address] [place] [address], [place] [address] 19 Jul, 2014 [facility] [address] [id number] [address] [place] [address], [place] [address] 19 Jul, 2014 [facility] [address] [id number] [address] [place] [address], [place] [address] 17 Jul, 2014 [facility] [address] [id number] [address] [place] [address], [place] [address] 17 Jul, 2014 [facility] [address] [id number] [address] [place] [address], [place] [address] 16 Jul, 2014 [facility] [address] [id number] [address] [place] [address], [place] [address] 16 Jul, 2014 [facility] [address] [id number] [address] [place] [address], [place] [address] 16 Jul, 2014 [facility] [address] [id number] [address] [place] [address], [place] [address] 16 Jul, 2014 [facility] [address] [id number] [address] [place] [address], [place] [address] 13 Jul, 2014 [facility] [address] [id number] [address] [place] [address], [place] [address] Jul, 2014 [facility] [address] [id number] [address] [place] [address], [place] [address] Jul, 2014 [facility] [address] [id number] [address] [place] [address], [place] [address] Jul, 2014 [facility] [address] [id number] [address] [place] [address], [place] [address] Jul, 2014 [facility] [address] [id number] [address] [place] [address], [place] [address] Jul, 2014 [facility] [address] [id number] [address] [place] [address], [place] [address] Jul, [facility] [address] [id number] [address] [place] [address], [place] [address] Jul, [facility] [address] [id number] [address] [place] [address], [place] [address] Jul, [facility] [address] [id number] [address] [place] [address], [place] [address] Jul, [facility] [address] [id number] [address] [place] [address], [place] [address] Jul, [facility] [address] [id number] [address] [place] [address], [place] [address] Jul, [facility] [address] [id number] [address] [place] [address], [place] [address] Jun, [facility] [address] [id number] [address] [place] [address], [place] [address] Jun, [facility] [address] [id number] [address] [place] [address], [place] [address] Jun, [facility] [address] [id number] [address] [place] [address], [place] [address] Jun, [facility] [address] [id number] [address] [place] [address], [place] [address] Jun, [facility] [address] [id number] [address] [place] [address], [place] [address] Jun, [facility] [address] [id number] [address] [place] [address], [place] [address] Jun, [facility] [address] [id number] [address] [place] [address], [place] [address] Jun, [facility] [address] [id number] [address] [place] [address], [place] [address] Jun, [facility] [address] [id number] [address] [place] [address], [place] [address] Jun, [facility] [address] [id number] [address] [place] [address], [place] [address] Jun, [facility] [address] [id number] [address] [place] [address], [place] [address] Jun, [facility] [address] [id number] [address] [place] [address], [place] [address] Jun, [facility] [address] [id number] [address] [place] [address], [place] [address] Jun, [facility] [address] [id number] [address] [place] [address], [place] [address] Jun, [facility] [address] [id number] [address] [place] [address], [place] [address] Jun, [facility] [address] [id number] [address] [place] [address], [place] [address] Jun, [facility] [address] [id number] [address] [place] [address], [place] [address] Jun, [facility] [address] [id number] [address] [place] [address], [place] [address] Jun, [facility] [address] [id number] [address] [place] [address], [place] [address] Jun, [facility] [address] [id number] [address] [place] [address], [place] [address] May, [facility] [address] [id number] [address] [place] [address], [place] [address] May, [facility] [address] [id number] [address] [place] [address], [place] [address] May, [facility] [address] [id number] [address] [place] [address], [place] [address] May, [facility] [address] [id number] [address] [place] [address], [place] [address] May, [facility] [address] [id number] [address] [place] [address], [place] [address] May, [facility] [address] [id number] [address] [place] [address], [place] [address] May, [facility] [address] [id number] [address] [place] [address], [place] [address] May, [facility] [address] [id number] [address] [place] [address], [place] [address] May, [facility] [address] [id number] [address] [place] [address], [place] [address] May, [facility] [address] [id number] [address] [place] [address], [place] [address] May, [facility] [address] [id number] [address] [place] [address], [place] [address] 18 May, 2014 [facility] [address] [id number] [address] [place] [address], [place] [address] 18 May, 2014 [facility] [address] [id number] [address] [place] [address], [place] [address] 17 May, 2014 [facility] [address] [id number] [address] [place] [address], [place] [address] 16 May, 2014 [facility] [address] [id number] [address] [place] [address], [place] [address] 16 May, 2014 [facility] [address] [id number] [address] [place] [address], [place] [address] 15 May, 2014 [facility] [address] [id number] [address] [place] [address], [place] [address] 15 May, 2014 [facility] [address] [id number] [address] [place] [address], [place] [address] May, [facility] [address] [id number] [address] [place] [address], [place] [address] May, [facility] [address] [id number] [address] [place] [address], [place] [address] May, [facility] [address] [id number] [address] [place] [address], [place] [address] May, [facility] [address] [id number] [address] [place] [address], [place] [address] May, [facility] [address] [id number] [address] [place] [address], [place] [address] May, [facility] [address] [id number] [address] [place] [address], [place] [address] May, [facility] [address] [id number] [address] [place] [address], [place] [address] May, [facility] [address] [id number] [address] [place] [address], [place] [address] May, [facility] [address] [id number] [address] [place] [address], [place] [address] May, [facility] [address] [id number] [address] [place] [address], [place] [address] May, [facility] [address] [id number] [address] [place] [address], [place] [address] May, [facility] [address] [id number] [address] [place] [address], [place] [address] May, [facility] [address] [id number] [address] [place] [address], [place] [address] May, [facility] [address] [id number] [address] [place] [address], [place] [address] May, [facility] [address] [id number] [address] [place] [address], [place] [address] May, [facility] [address] [id number] [address] [place] [address], [place] [address] Apr, [facility] [address] [id number] [address] [place] [address], [place] [address] Apr, [facility] [address] [id number] [address] [place] [address], [place] [address] Apr, [facility] [address] [id number] [address] [place] [address], [place] [address] Apr, [facility] [address] [id number] [address] [place] [address], [place] [address] Apr, [facility] [address] [id number] [address] [place] [address], [place] [address] Apr, [facility] [address] [id number] [address] [place] [address], [place] [address] Apr, [facility] [address] [id number] [address] [place] [address], [place] [address] Apr, [facility] [address] [id number] [address] [place] [address], [place] [address] Apr, [facility] [address] [id number] [address] [place] [address], [place] [address] Apr, [facility] [address] [id number] [address] [place] [address], [place] [address] Mar, [facility] [address] [id number] [address] [place] [address], [place] [address] Mar, [facility] [address] [id number] [address] [place] [address], [place] [address] Mar, [facility] [address] [id number] [address] [place] [address], [place] [address] 31 Mar, 2013 [facility] [address] [id number] [address] [place] [address], [place] [address] 30 Mar, 2013 [facility] [address] [id number] [address] [place] [address], [place] [address] 30 Mar, 2014 [facility] [address] [id number] [address] [place] [address], [place] [address] Mar, 2013 [facility] [address] [id number] [address] [place] [address], [place] [address] 17 Mar, 2013 [facility] [address] [id number] [address] [place] [address], [place] [address] 15 Mar, 2014 [facility] [address] [id number] [address] [place] [address] 15 Mar, 2014 [facility] [address] [id number] [address] [place] [address], [place] [address] 15 Mar, 2014 [facility] [address] [id number] [address] [place] [address] Mar, [facility] [address] [id number] [address] [place] [address], [place] [address] Mar, [facility] [address] [id number] [address] [place] [address] Mar, [facility] [address] [id number] [address] [place] [address] Mar, [facility] [address] [id number] [address] [place] [address] Mar, 2013 [facility] [address] [id number] [address] [place] [address], [place] [address] Mar, [facility] [address] [id number] [address] [place] [address] Mar, [facility] [address] [id number] [address] [place] [address] Mar, 2013 [facility] [address] [id number] [address] [place] [address], [place] [address] 02 Mar, 2013 [facility] [address] [id number] [address] [place] [address], [place] [address] 05 Sep, 2013 [facility] [address] [id number] [address] [place] [address], [place] [address] 05 Sep, 2013 [facility] [address] [id number] [address] [place] [address], [place] [address] 04 Sep, 2013 [facility] [address] [id number] [address] [place] [address], [place] [address] 04 Sep, 2013 [facility] [address] [id number] [address] [place] [address], [place] [address] 03 Feb, 2013 [facility] [address] [id number] [address] [place] [address], [place] [address] Feb, 2013 [facility] [address] [id number] [address] [place] [address], [place] [address] Feb, 2013 [facility] [address] [id number] [address] [place] [address], [place] [address] Feb, 2013 [facility] [address] [id number] [address] [place] [address], [place] [address] Feb, 2013 [facility] [address] [id number] [address] [place] [address], [place] [address] Feb, 2013 [facility] [address] [id number] [address] [place] [address], [place] [address] Jan, [facility] [address] [id number] [address] [place] [address], [place] [address] Jan, [facility] [address] [id number] [address] [place] [address], [place] [address] Jan, [facility] [address] [id number] [address] [place] [address], [place] [address] Jan, [facility] [address] [id number] [address] [place] [address], [place] [address] Jan, [facility] [address] [id number] [address] [place] [address], [place] [address] Jan, [facility] [address] [id number] [address] [place] [address], [place] [address] Jan, [facility] [address] [id number] [address] [place] [address], [place] [address] Jan, [facility] [address] [id number] [address] [place] [address], [place] [address] Jan, [facility] [address] [id number] [address] [place] [address], [place] [address] Jan, [facility] [address] [id number] [address] [place] [address], [place] [address] Jan, [facility] [address] [id number] [address] [place] [address], [place] [address] Jan, [facility] [address] [id number] [address] [place] [address], [place] [address] Dec, [facility] [address] [id number] [address] [place] [address], [place] [address] Dec, [facility] [address] [id number] [address] [place] [address], [place] [address] Dec, [facility] [address] [id number] [address] [place] [address], [place] [address] Dec, [facility] [address] [id number] [address] [place] [address], [place] [address] Dec, [facility] [address] [id number] [address] [place] [address], [place] [address] Dec, [facility] [address] [id number] [address] [place] [address], [place] [address] Dec, [facility] [address] [id number] [address] [place] [address], [place] [address] Dec, [facility] [facility] [address] [id number] [address] [place] [address], [place] [address] Dec, [facility] [address] [id number] [address] [place] [address], [place] [address] Dec, [facility] [address] [id number] [address] [place] [address], [place] [address] Dec, [facility] [address] [id number] [address] [place] [address], [place] [address] Dec, [facility] [address] [id number] [address] [place] [address], [place] [address] Nov, [facility] [address] [id number] [address] [place] [address], [place] [address] Nov, [facility] [address] [id number] [address] [place] [address], [place] [address] Nov, [facility] [address] [id number] [address] [place] [address], [place] [address] Nov, [facility] [address] [id number] [address] [place] [address], [place] [address] Nov, [facility] [address] [id number] [address] [place] [address], [place] [address] Nov, [facility] [address] [id number] [address] [place] [address], [place] [address] Nov, [facility] [address] [id number] [address] [place] [address], [place] [address] Nov, [facility] [address] [id number] [address] [place] [address] Nov, [facility] [address] [id number] [address] [place] [address], [place] [address] Nov, [facility] [address] [id number] [address] [place] [address], [place] [address] Nov, [facility] [address] [id number] [address] [place] [address], [place] [address] Nov, [facility] [address] [id number] [address] [place] [address], [place] [address] Nov, [facility] [address] [id number] [address] [place] [address], [place] [address] Nov, [facility] [address] [id number] [address] [place] [address], [place] [address] October, [facility] [address] [id number] [address] [place] [address], [place] [address] October, [facility] [address] [id number] [address] [place] [address], [place] [address] October, [facility] [address] [id number] [address] [place] [address], [place] [address] October, [facility] [address] [id number] [address] [place] [address], [place] [address] October, [facility] [address] [id number] [address] [place] [address], [place] [address] October, [facility] [address] [id number] [address] [place] [address], [place] [address] October, [facility] [address] [id number] [address] [place] [address], [place] [address] October, [facility] [address] [id number] [address] [place] [address], [place] [address] October, [facility] [address] [id number] [address] [place] [address], [place] [address] October, [facility] [address] [id number] [address] [place] [address], [place] [address] October, [facility] [address] [id number] [address] [place] [address], [place] [address] October, [facility] [address] [id number] [address] [place] [address], [place] [address] Sep, [facility] [address] [id number] [address] [place] [address], [place] [address] Sep, [facility] [address] [id number] [facility] [address] Sep, [facility] [address] [id number] [address] [place] [address], [place] [address] Sep, [facility] [address] [id number] [address] [place] [address], [place] [address] Sep, [facility] [address] [id number] [address] [place] [address], [place] [address] Sep, [facility] [address] [id number] [address] [place] [address], [place] [address] Aug, [facility] [address] [id number] [address] [place] [address], [place] [address] Aug, [facility] [address] [id number] [address] [place] [address], [place] [address] Aug, [facility] [address] [id number] [address] [place] [address], [place] [address] Aug, [facility] [address] [id number] [address] [place] [address], [place] [address] Aug, [facility] [address] [id number] [address] [place] [address], [place] [address] Aug, [facility] [address] [id number] [address] [place] [address], [place] [address] Jul, [facility] [address] [id number] [address] [place] [address], [place] [address] Jul, [facility] [address] [id number] [address] [place] [address], [place] [address] Jul, [facility] [address] [id number] [address] [place] [address], [place] [address] Jul, [facility] [address] [id number] [address] [place] [address], [place] [address] Jul, [facility] [address] [id number] [address] [place] [address], [place] [address] 13 Jul, 2013 [facility] [address] [id number] [address] [place] [address], [place] [address] Jul, [facility] [address] [id number] [address] [place] [address], [place] [address] Jul, [facility] [address] [id number] [address] [place] [address], [place] [address] Jul, [facility] [address] [id number] [address] [place] [address], [place] [address] Jul, [facility] [address] [id number] [address] [place] [address], [place] [address] Jun, [facility] [address] [id number] [address] [place] [address], [place] [address] Jun, [facility] [address] [id number] [address] [place] [address], [place] [address] Jun, [facility] [address] [id number] [address] [place] [address], [place] [address] Jun, [facility] [address] [id number] [address] [place] [address], [place] [address] Jun, [facility] [address] [id number] [address] [place] [address], [place] [address] Jun, [facility] [address] [id number] [address] [place] [address], [place] [address] Jun, [facility] [address] [id number] [address] [place] [address], [place] [address] Jun, [facility] [address] [id number] [address] [place] [address], [place] [address] May, [facility] [address] [id number] [address] [place] [address], [place] [address] May, [facility] [address] [id number] [address] [place] [address] [address] May, [facility] [address] [id number] [address] [place] [address], [place] [address] May, [facility] [address] [id number] [address] [place] [address], [place] [address] May, [facility] [address] [id number] [address] [place] [address], [place] [address] May, [facility] [address] [id number] [address] [place] [address], [place] [address] May, [facility] [address] [id number] [address] [place] [address], [place] [address] May, [facility] [address] [id number] [address] [place] [address], [place] [address] Apr, [facility] [address] [id number] [address] [place] [address], [place] [address] Apr, [facility] [address] [id number] [address] [place] [address] Apr, [facility] [address] [id number] [address] [place] [address] Apr, [facility] [address] [id number] [address] [place] [address] Apr, [facility] [address] [id number] [address] [place] [address] Apr, [facility] [address] [id number] [address] [place] [address] Mar, [facility] [address] [id number] [address] [place] [address] Mar, [facility] [address] [id number] [address] [place] [address] Mar, [facility] [address] [id number] [address] [place] [address] Mar, [facility] [address] [id number] [address] [place] [address], [place] [address] Mar, [facility] [address] [id number] [address] [place] [address], [place] [address] Mar, [facility] [address] [id number] [address] [place] [address], [place] [address] Mar, [facility] [address] [id number] [address] [place] [address], [place] [address] 30 Feb, 2013 [facility] [address] [id number] [address] [place] [address], [place] [address] 30 Feb, 2013 [facility] [address] [id number] [address] [place] [address], [place] [address] 27 Feb, 2013 [facility] [address] [id number] [address] [place] [address], [place] [address] Feb, [facility] [address] [id number] [address] [place] [address], [place] [address] Feb, [facility] [address] [id number] [address] [place] [address], [place] [address] Feb, [facility] [address] [id number] [address] [place] [address], [place] [address] Jan, [facility] [address] [id number] [address] [place] [address], [place] [address] Jan, [facility] [address] [id number] [address] [place] [address], [place] [address] Jan, [facility] [address] [id number] [address] [place] [address], [place] [address] Jan, [facility] [address] [id number] [address] [place] [address], [place] [address] Jan, [facility] [address] [id number] [address] [place] [address], [place] [address] Jan, [facility] [address] [id number] [address] [place] [address], [place] [address] Jan, [facility] [address] [id number] [address] [place] [address], [place] [address] Jan, [facility] [address] [id number] [address] [place] [address], [place] [address] Jan, [facility] [address] [id number] [address] [place] [address], [place] [address] Dec, [facility] [address] [id number] [address] [place] [address], [place] [address] Dec, [facility] [address] [id number] [address] [place] [address], [place] [address] Dec, [facility] [address] [id number] [address] [place] [address], [place] [address] Dec, [facility] [address] [id number] [address] [place] [address], [place] [address] Dec, [facility] [address] [id number] [address] [place] [address], [place] [address] Dec, [facility] [address] [id number] [address] [place] [address], [place] [address] Dec, [facility] [address] [id number] [address] [place] [address], [place] [address] Dec, [facility] [address] [id number] [address] [place] [address], [place] [address] Dec, [facility] [address] [id number] [address] [place] [address], [place] [address] Dec, [facility] [address] [id number] [address] [place] [address], [place] [address] Dec, [facility] [address] [id number] [address] [place] [address], [place] [address] Dec, [facility] [address] [id number] [address] [place] [address], [place] [address] Dec, [facility] [address] [id number] [address] [place] [address], [place] [address] Nov, [facility] [address] [id number] [address] [place] [address], [place] [address] Nov, [facility] [address] [id number] [address] [place] [address], [place] [address] Nov, [facility] [address] [id number] [address] [place] [address], [place] [address] Nov, [facility] [address] [id number] [address] [place] [address], [place] [address] October, [facility] [address] [id number] [address] [place] [address], [place] [address] October, [facility] [address] [id number] [address] [place] [address], [place] [address] October, [facility] [address] [id number] [address] [place] [address], [place] [address] October, [facility] [address] [id number] [address] [place] [address], [place] [address] October, [facility] [address] [id number] [address] [place] [address], [place] [address] October, [facility] [address] [id number] [address] [place] [address], [place] [address] 30 Sep, 2012 [facility] [address] [id number] [address] [place] [address], [place] [address] 29 Sep, 2012 [facility] [address] [id number] [address] [place] [address], [place] [address] 27 Sep, 2012 [facility] [address] [id number] [address] [place] [address], [place] [address] 23 Sep, 2012 [facility] [address] [id number] [address] [place] [address], [place] [address] Sep, [facility] [address] [id number] [address] [place] [address], [place] [address] 16 Sep, 2012 [facility] [address] [id number] [facility] [address] 12 Sep, 2012 [facility] [address] [id number] [address] [place] [address], [place] [address] Sep, [facility] [address] [id number] [address] [place] [address], [place] [address] Sep, [facility] [address] [id number] [address] [place] [address], [place] [address] Sep, [facility] [address] [id number] [address] [place] [address], [place] [address] Sep, [facility] [address] [id number] [address] [place] [address], [place] [address] Aug, [facility] [address] [id number] [address] [place] [address], [place] [address] Aug, [facility] [address] [id number] [address] [place] [address], [place] [address] 25 Aug, 2012 [facility] [address] [id number] [address] [place] [address], [place] [address] 21 Aug, 2012 [facility] [address] [id number] [address] [place] [address], [place] [address] 19 Aug, 2012 [facility] [address] [id number] [address] [place] [address], [place] [address] 18 Aug, 2012 [facility] [address] [id number] [address] [place] [address], [place] [address] 17 Aug, 2012 [facility] [address] [id number] [address] [place] [address], [place] [address] 15 Aug, 2012 [facility] [address] [id number] [address] [place] [address], [place] [address] 15 Aug, 2012 [facility] [address] [id number] [address] [place] [address], [place] [address] 11 Aug, 2012 [facility] [address] [id number] [address] [place] [address], [place] [address] Aug, [facility] [address] [id number] [address] [place] [address], [place] [address] Aug, [facility] [address] [id number] [address] [place] [address], [place] [address] Jul, [facility] [address] [id number] [address] [place] [address], [place] [address] Jul, [facility] [address] [id number] [address] [place] [address], [place] [address] Jul, [facility] [address] [id number] [address] [place] [address], [place] [address] Jul, [facility] [address] [id number] [address] [place] [address], [place] [address] Jul, [facility] [address] [id number] [address] [place] [address], [place] [address] Jul, [facility] [address] [id number] [address] [place] [address], [place] [address] Jul, [facility] [address] [id number] [address] [place] [address], [place] [address] Jul, [facility] [address] [id number] [address] [place] [address], [place] [address] Jul, [facility] [address] [id number] [address] [place] [address] Jul, [facility] [address] [id number] [address] [place] [id number] May, [facility] [address] [id number] [place] [id number] May, [facility] [address] [id number] [address] [place] [phone] May, [facility] [address] [id number] [address] [place] [address], [place] [address] 14 May, 2012 [facility] [address] [id number] [address] [place] [address], [place] [address] May, [facility] [address] [id number] [address] [place] [address], [place] [address] Apr, [facility] [address] [id number] [place] [id number] Apr, [facility] [address] [facility] [id number] [address] [place] [address], [place] [address] Apr, [facility] [address] [facility] [id number] [address] [place] [address], [place] [address] Mar, [facility] [address] [id number] [place] [id number] Mar, [facility] [address] [facility] [id number] [address] [place] [address], [place] [address] Mar, [facility] [place] [address] [id number] [place] [id number] Feb, [facility] [address] [facility] [id number] [address] [place] [address], [place] [address] Feb, [facility] [address] [facility] [id number] [address] [place] [address], [place] [address] Feb, [facility] [address] [id number] [place] [id number] Feb, [facility] [address] [id number] [place] [id number] Feb, [facility] [address] [id number] [place] [id number] Jan, [facility] [address] [id number] [address] [place] [address], [place] [address] Jan, [facility] [address] [id number] [place] [id number] Jan, [facility] [address] [id number] [place] [id number] Jan, [facility] [address] [id number] [place] [id number] Jan, [facility] [address] [id number] [address] [place] [address], [place] [address] Jan, [facility] [address] [facility] [id number] [address] [place] [address], [place] [address] Jan, [facility] [address] [facility] [id number] [address] [place] [address], [place] [address] Aug, [facility] [place] [address] [facility] [id number] [place] [id number] Aug, [facility] [address] [facility] [id number] [address] [place] [address], [place] [address] Jul, [facility] [address] [facility] [id number] [address] [place] [address], [place] [address] Jul, [facility] [address] [facility] [id number] [address] [place] [address], [place] [address] Jul, [facility] [address] [facility] [id number] [place] [id number] Jul, [facility] [address] [facility] [id number] [address] [place] [address], [place] [address] Jul, [facility] [place] [address] [facility] [id number] [place] [id number] Jul, [facility] [address] [facility] [id number] [address] [place] [address], [place] [address] Jul, [facility] [address] [id number] [place] [id number] Jul, [facility] [address] [id number] [place] [id number] Jul, [facility] [address] [id number] [place] [id number] Jul, [facility] [address] [facility] [id number] [address] [place] [address], [place] [address] May, [facility] [address] [facility] [id number] [address] [place] [address], [place] [address] May, [facility] [address] [id number] [address] [place] [address] May, [facility] [address] [id number] [address] [place] [address] Apr, [facility] [address] [id number] [address] [place] [address] Jan, [facility] [address] [id number] [address] [place] [address] Jan, [facility] [address] [id number] [address] [place] [address] Dec, [facility] [address] [id number] [address] [place] [id number] Dec, [facility] [address] [id number] [address] [place] [id number] 16 May, 2009 [facility] [address] [id number] [address] [place] [address] Mar, [facility] [address] [id number] [address] [place] [address] Mar, [facility] [address] [id number] [address] [place] [address] Jan, IMMUNIZATIONS No Known Immunizations SOCIAL HISTORY Never Assessed REASON FOR VISIT [facility] PLAN OF CARE VITAL SIGNS MEDICATIONS Unknown [...]
--- OUTSIDE RECORDS SUMMARY | 2020-01-28 12:59 | XMS REPORT ---
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 Active 409049634 Problem History of venous thromboembolism V12.51 Active 894257651 Problem Cellulitis of unspecified part of limb L03.119 Active 762093760 Problem Gastroesophageal reflux disease without esophagitis K21.9 Active 707438342 Problem History of pulmonary embolism Z86.711 Active 444041301 Problem Pseudotumor cerebri G93.2 Active 83604027 Problem History of DVT (deep vein thrombosis) Z86.718 Active 512907198 ALLERGIES No Information ENCOUNTERS Encounter Location Date Diagnosis [place] [id number] [facility] [id number] [address] [place] [address] Apr, snf (current) use of 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 Z79.01 [facility] [address] [facility] [id number] [address] [place] [address] Apr, snf 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.01 [facility] [address] [facility] [id number] [address] [place] [address] Apr, Cellulitis of unspecified pa rt of limb L03.119 ; Allergic contact dermatitis due to adhesives L23.1 and Chronic pain syndrome G89.4 [facility] [address] [facility] [id number] [address] [place] [address] Apr, [place] [address] [place] [id number] [address] [place] [address] Apr, 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.01 ; Cellulitis of unspecified part of limb L03.119 ; Chronic pain syndrome G89.4 and Anxiety F41.9 [facility] [address] [place] [id number] [address] [place] [address] 16 Apr, 2015 [facility] [address] [place] [id number] [place] [address] Apr, [place] [address] [place] [id number] [place] [address] Mar, [place] [address] [address] Mar, [place] [address] [address] Mar, Sore throat J02.9 ; Gastroes ophageal reflux disease without esophagitis K21.9 ; Pseudotumor cerebri G93.2 ; Chronic pain syndrome G89.4 ; Choriocarcinoma C58 ; History of pulmonary embolism Z86.711 ; History of DVT (deep vein thrombosis) Z86.718 ; Anxiety F41.9 and Tachycardia R00.0 [place] [address] [address] Feb, Anxiety 300.00 and Chronic p ain 338.29 [place] [address] [place] [id number] [address] [place] [address] Feb, [place] [address] [place] [id number] [address] [place] [address] Feb, [place] [address] [address] Jan, 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.61 and Dysuria 788.1 [place] [address] [place] [id number] [place] [address] Jan, Dysuria 788.1 [facility] [address] [place] [id number] [address] [place] [address] Jan, Anxiety 300.00 and Chronic p ain 338.29 [facility] [address] [place] [id number] [place] [address] Jan, [facility] [address] [address] Jan, [facility] [address] [address] Jan, [place] [address] [address] Dec, Weakness 780.79 [place] [address] [address] Dec, snf current use of ant icoagulant therapy V58.61 [place] [address] [address] Dec, Palpitations 785.1 ; Tremor 781.0 ; Weakness 780.79 ; snf current use of anticoagulant therapy V58.61 and Yeast vaginitis 112.1 [place] [address] [address] [place] [id number] [address] [place] [address] Dec, [place] [address] [address] Dec, Cervicalgia 723.1 ; Tachycar yoseph 785.0 ; Pseudotumor cerebri 348.2 and History of venous thromboembolism V12.51 [place] [address] [address] Nov, [place] [address] [address] Nov, [place] [address] [address] Nov, Tachycardia 785.0 ; Pseudotu mor cerebri 348.2 ; Anxiety 300.00 and History of venous thromboembolism V12.51 [facility] [address] [id number] [address] [place] [address] Nov, [facility] [address] [id number] [address] [place] [address] 18 Nov, 2014 [facility] [address] [id number] [address] [place] [address] Nov, [facility] [address] [id number] [address] [place] [address] Nov, [facility] [address] [facility] [id number] [address] [place] [address] Nov, [facility] [address] [facility] [id number] [address] [place] [address] Nov, [facility] [address] [facility] [id number] [address] [place] [address] Nov, [facility] [address] [facility] [id number] [address] [place] [address] October, [facility] [address] [facility] [id number] [address] [place] [address] October, [facility] [address] [place] [id number] [address] [place] [address] October, Pain in thoracic spine 724.1 and Tachycardia 785.0 [facility] [address] [id number] [address] [place] [address] October, [facility] [address] [id number] [address] [place] [address] October, [facility] [address] [facility] [id number] [address] [place] [address] 14 Sep, 2014 [facility] [address] [facility] [id number] [address] [place] [address] Sep, [facility] [address] [id number] [facility] [place] [address] Aug, [facility] [address] [id number] [address] [place] [address], [place] [address] Aug, [facility] [address] [id number] [address] [place] [address], [place] [address] Aug, [facility] [address] [id number] [address] [place] [address], [place] [address] Aug, [facility] [address] [id number] [address] [place] [address], [place] [address] Aug, [facility] [address] [id number] [address] [place] [address], [place] [address] Aug, [facility] [address] [id number] [address] [place] [address], [place] [address] Aug, [facility] [address] [id number] [address] [place] [address], [place] [address] Aug, [facility] [address] [id number] [address] [place] [address], [place] [address] Aug, [facility] [address] [id number] [address] [place] [address], [place] [address] Aug, [facility] [address] [id number] [address] [place] [address], [place] [address] Aug, [facility] [address] [id number] [address] [place] [address], [place] [address] Aug, 2014 [facility] [address] [id number] [address] [place] [address], [place] [address] Jul, [facility] [address] [id number] [address] [place] [address], [place] [address] Jul, [facility] [address] [id number] [address] [place] [address], [place] [address] Jul, [facility] [address] [id number] [address] [place] [address], [place] [address] Jul, [facility] [address] [id number] [address] [place] [address], [place] [address] 23 Jul, 2014 [facility] [address] [id number] [address] [place] [address], [place] [address] 23 Jul, 2014 [facility] [address] [id number] [address] [place] [address], [place] [address] 23 Jul, 2014 [facility] [address] [id number] [address] [place] [address], [place] [address] 23 Jul, 2014 [facility] [address] [id number] [address] [place] [address], [place] [address] 20 Jul, 2014 [facility] [address] [id number] [address] [place] [address], [place] [address] 20 Jul, 2014 [facility] [address] [id number] [address] [place] [address], [place] [address] 19 Jul, 2014 [facility] [address] [id number] [address] [place] [address], [place] [address] 19 Jul, 2014 [facility] [address] [id number] [address] [place] [address], [place] [address] 17 Jul, 2014 [facility] [address] [id number] [address] [place] [address], [place] [address] 17 Jul, 2014 [facility] [address] [id number] [address] [place] [address], [place] [address] 16 Jul, 2014 [facility] [address] [id number] [address] [place] [address], [place] [address] 16 Jul, 2014 [facility] [address] [id number] [address] [place] [address], [place] [address] 16 Jul, 2014 [facility] [address] [id number] [address] [place] [address] 16 Jul, 2014 [facility] [address] [id number] [address] [place] [address] 13 Jul, 2014 [facility] [address] [id number] [address] [place] [address], [place] [address] Jul, [facility] [address] [id number] [address] [place] [address], [place] [address] Jul, [facility] [address] [id number] [address] [place] [address], [place] [address] Jul, 2014 [facility] [address] [id number] [address] [place] [address], [place] [address] Jul, 2014 [facility] [address] [id number] [address] [place] [address], [place] [address] Jul, [facility] [address] [id number] [address] [place] [address], [place] [address] Jul, [facility] [address] [id number] [address] [place] [address], [place] [address] Jul, [facility] [address] [id number] [address] [place] [address], [place] [address] Jul, [facility] [address] [id number] [address] [place] [address], [place] [address] Jul, [facility] [address] [id number] [address] [place] [address], [place] [address] Jul, [facility] [address] [id number] [address] [place] [address], [place] [address] Jul, [facility] [address] [id number] [address] [place] [address], [place] [address] Jun, [facility] [address] [id number] [address] [place] [address], [place] [address] Jun, [facility] [address] [id number] [address] [place] [address], [place] [address] Jun, [facility] [address] [id number] [address] [place] [address], [place] [address] Jun, [facility] [address] [id number] [address] [place] [address], [place] [address] Jun, [facility] [address] [id number] [address] [place] [address], [place] [address] Jun, [facility] [address] [id number] [address] [place] [address], [place] [address] Jun, [facility] [address] [id number] [address] [place] [address], [place] [address] Jun, [facility] [address] [id number] [address] [place] [address], [place] [address] Jun, [facility] [address] [id number] [address] [place] [address], [place] [address] Jun, [facility] [address] [id number] [address] [place] [address], [place] [address] Jun, [facility] [address] [id number] [address] [place] [address], [place] [address] Jun, [facility] [address] [id number] [address] [place] [address], [place] [address] Jun, [facility] [address] [id number] [address] [place] [address], [place] [address] Jun, [facility] [address] [id number] [address] [place] [address], [place] [address] Jun, [facility] [address] [id number] [address] [place] [address], [place] [address] Jun, [facility] [address] [id number] [address] [place] [address], [place] [address] Jun, [facility] [address] [id number] [address] [place] [address], [place] [address] Jun, [facility] [address] [id number] [address] [place] [address], [place] [address] Jun, [facility] [address] [id number] [address] [place] [address], [place] [address] Jun, [facility] [address] [id number] [address] [place] [address], [place] [address] May, [facility] [address] [id number] [address] [place] [address], [place] [address] May, [facility] [address] [id number] [address] [place] [address], [place] [address] May, [facility] [address] [id number] [address] [place] [address], [place] [address] May, [facility] [address] [id number] [address] [place] [address], [place] [address] May, [facility] [address] [id number] [address] [place] [address], [place] [address] May, [facility] [address] [id number] [address] [place] [address], [place] [address] May, [facility] [address] [id number] [address] [place] [address], [place] [address] May, [facility] [address] [id number] [address] [place] [address], [place] [address] May, [facility] [address] [id number] [address] [place] [address], [place] [address] May, [facility] [address] [id number] [address] [place] [address], [place] [address] May, [facility] [address] [id number] [address] [place] [address], [place] [address] 18 May, 2014 [facility] [address] [id number] [address] [place] [address], [place] [address] 18 May, 2014 [facility] [address] [id number] [address] [place] [address], [place] [address] 17 May, 2014 [facility] [address] [id number] [address] [place] [address], [place] [address] 16 May, 2014 [facility] [address] [id number] [address] [place] [address], [place] [address] 16 May, 2014 [facility] [address] [id number] [address] [place] [address], [place] [address] 15 May, 2014 [facility] [address] [id number] [address] [place] [address], [place] [address] 15 May, 2014 [facility] [address] [id number] [address] [place] [address], [place] [address] May, [facility] [address] [id number] [address] [place] [address], [place] [address] May, [facility] [address] [id number] [address] [place] [address], [place] [address] May, [facility] [address] [id number] [address] [place] [address], [place] [address] May, [facility] [address] [id number] [address] [place] [address], [place] [address] May, [facility] [address] [id number] [address] [place] [address], [place] [address] May, [facility] [address] [id number] [address] [place] [address], [place] [address] May, [facility] [address] [id number] [address] [place] [address], [place] [address] May, [facility] [address] [id number] [address] [place] [address], [place] [address] May, [facility] [address] [id number] [address] [place] [address], [place] [address] May, [facility] [address] [id number] [address] [place] [address], [place] [address] May, [facility] [address] [id number] [address] [place] [address], [place] [address] May, [facility] [address] [id number] [address] [place] [address], [place] [address] May, [facility] [address] [id number] [address] [place] [address], [place] [address] May, [facility] [address] [id number] [address] [place] [address], [place] [address] May, [facility] [address] [id number] [address] [place] [address], [place] [address] May, [facility] [address] [id number] [address] [place] [address], [place] [address] Apr, [facility] [address] [id number] [address] [place] [address], [place] [address] Apr, [facility] [address] [id number] [address] [place] [address], [place] [address] Apr, [facility] [address] [id number] [address] [place] [address], [place] [address] Apr, [facility] [address] [id number] [address] [place] [address], [place] [address] Apr, [facility] [address] [id number] [address] [place] [address], [place] [address] Apr, [facility] [address] [id number] [address] [place] [address], [place] [address] Apr, [facility] [address] [id number] [address] [place] [address], [place] [address] Apr, [facility] [address] [id number] [address] [place] [address], [place] [address] Apr, [facility] [address] [id number] [address] [place] [address], [place] [address] Apr, [facility] [address] [id number] [address] [place] [address], [place] [address] Mar, [facility] [address] [id number] [address] [place] [address], [place] [address] Mar, [facility] [address] [id number] [address] [place] [address] [address] Mar, [facility] [address] [id number] [address] [place] [address], [place] [address] 31 Mar, 2013 [facility] [address] [id number] [address] [place] [address], [place] [address] Mar, [facility] [address] [id number] [address] [place] [address], [place] [address] 30 Mar, 2014 [facility] [address] [id number] [address] [place] [address], [place] [address] Mar, [facility] [address] [id number] [address] [place] [address], [place] [address] Mar, [facility] [address] [id number] [address] [place] [address], [place] [address] Mar, [facility] [address] [id number] [address] [place] [address], [place] [address] Mar, [facility] [address] [id number] [address] [place] [id number] Mar, [facility] [address] [id number] [address] [place] [id number] Mar, [facility] [address] [id number] [address] [place] [id number] Mar, [facility] [address] [id number] [address] [place] [id number] Mar, 2013 [facility] [address] [id number] [address] [place] [id number] Mar, 2013 [facility] [address] [id number] [address] [place] [id number] Mar, [facility] [address] [id number] [address] [place] [id number] Mar, [facility] [address] [id number] [address] [place] [id number] Mar, 2013 [facility] [address] [id number] [address] [place] [address], [place] [address] 02 Mar, 2013 [facility] [address] [id number] [address] [place] [address], [place] [address] 02 Mar, 2013 [facility] [address] [id number] [address] [place] [address], [place] [address] 05 Sep, 2013 [facility] [address] [id number] [address] [place] [address], [place] [address] 05 Sep, 2013 [facility] [address] [id number] [address] [place] [address], [place] [address] 04 Sep, 2013 [facility] [address] [id number] [address] [place] [address], [place] [address] 04 Sep, 2013 [facility] [address] [id number] [address] [place] [address], [place] [address] 03 Feb, 2013 [facility] [address] [id number] [address] [place] [address], [place] [address] 03 Feb, 2013 [facility] [address] [id number] [address] [place] [address], [place] [address] 02 Feb, 2013 [facility] [address] [id number] [address] [place] [address], [place] [address] Feb, 2013 [facility] [address] [id number] [address] [place] [address], [place] [address] 02 Feb, 2013 [facility] [address] [id number] [address] [place] [address], [place] [address] Feb, 2013 [facility] [address] [id number] [address] [place] [address], [place] [address] Jan, [facility] [address] [id number] [address] [place] [address], [place] [address] Jan, [facility] [address] [id number] [address] [place] [address], [place] [address] Jan, [facility] [address] [id number] [address] [place] [address], [place] [address] Jan, [facility] [address] [id number] [facility] [place] [address] Jan, [facility] [address] [id number] [address] [place] [address], [place] [address] Jan, [facility] [address] [id number] [address] [place] [address], [place] [address] Jan, [facility] [address] [id number] [address] [place] [address], [place] [address] Jan, [facility] [address] [id number] [address] [place] [address], [place] [address] Jan, [facility] [address] [id number] [address] [place] [address], [place] [address] Jan, [facility] [address] [id number] [address] [place] [place] [address], [place] [address] Jan, [facility] [address] [id number] [address] [place] [address], [place] [address] Jan, [facility] [address] [id number] [address] [place] [address], [place] [address] Dec, [facility] [address] [id number] [address] [place] [address], [place] [address] Dec, [facility] [address] [id number] [address] [place] [address], [place] [address] Dec, [facility] [address] [id number] [address] [place] [address], [place] [address] Dec, [facility] [address] [id number] [address] [place] [address], [place] [address] Dec, [facility] [address] [id number] [address] [place] [address], [place] [address] Dec, [facility] [address] [id number] [address] [place] [address], [place] [address] Dec, [facility] [address] [id number] [address] [place] [address], [place] [address] Dec, [facility] [address] [id number] [facility] [place] [address] Dec, [facility] [address] [id number] [address] [place] [address], [place] [address] Dec, [facility] [address] [id number] [address] [place] [address], [place] [address] Dec, [facility] [address] [id number] [address] [place] [address], [place] [address] Dec, [facility] [address] [id number] [address] [place] [address], [place] [address] Nov, [facility] [address] [id number] [address] [place] [address], [place] [address] Nov, [facility] [address] [id number] [address] [place] [address], [place] [address] Nov, [facility] [address] [id number] [address] [place] [address], [place] [address] Nov, [facility] [address] [id number] [address] [place] [address], [place] [address] Nov, [facility] [address] [id number] [address] [place] [address], [place] [address] Nov, [facility] [address] [id number] [address] [place] [address], [place] [address] Nov, [facility] [address] [id number] [address] [place] [address], [place] [address] Nov, [facility] [address] [id number] [address] [place] [address], [place] [address] Nov, [facility] [address] [id number] [address] [place] [address], [place] [address] Nov, [facility] [address] [id number] [address] [place] [address], [place] [address] Nov, [facility] [address] [id number] [facility] [place] [address] Nov, [facility] [address] [id number] [address] [place] [address], [place] [address] Nov, [facility] [address] [id number] [address] [place] [address], [place] [address] Nov, [facility] [address] [id number] [address] [place] [address], [place] [address] October, [facility] [address] [id number] [address] [place] [address], [place] [address] October, [facility] [address] [id number] [address] [place] [address], [place] [address] October, [facility] [address] [id number] [address] [place] [address], [place] [address] October, [facility] [address] [id number] [address] [place] [address], [place] [address] October, [facility] [address] [id number] [address] [place] [address], [place] [address] October, [facility] [address] [id number] [address] [place] [address], [place] [address] October, [facility] [address] [id number] [address] [place] [address], [place] [address] October, [facility] [address] [id number] [address] [place] [address], [place] [address] October, [facility] [address] [id number] [address] [place] [address], [place] [address] October, [facility] [address] [id number] [address] [place] [address], [place] [address] October, [facility] [address] [id number] [address] [place] [address], [place] [address] October, [facility] [address] [id number] [address] [place] [address], [place] [address] Sep, [facility] [address] [id number] [facility] [place] [address] Sep, [facility] [address] [id number] [address] [place] [address], [place] [address] Sep, [facility] [address] [id number] [facility] [place] [address] Sep, [facility] [address] [id number] [address] [place] [address], [place] [address] Sep, [facility] [address] [id number] [address] [place] [address], [place] [address] Sep, [facility] [address] [id number] [address] [place] [address], [place] [address] Aug, [facility] [address] [id number] [address] [place] [address], [place] [address] Aug, [facility] [address] [id number] [address] [place] [address], [place] [address] Aug, [facility] [address] [id number] [address] [place] [address], [place] [address] Aug, [facility] [address] [id number] [address] [place] [address], [place] [address] Aug, [facility] [address] [id number] [address] [place] [address], [place] [address] Aug, [facility] [address] [id number] [address] [place] [address], [place] [address] Jul, [facility] [address] [id number] [address] [place] [address], [place] [address] Jul, [facility] [address] [id number] [address] [place] [address], [place] [address] Jul, [facility] [address] [id number] [address] [place] [address], [place] [address] Jul, [facility] [address] [id number] [address] [place] [address], [place] [address] 13 Jul, 2013 [facility] [address] [id number] [address] [place] [address], [place] [address] Jul, [facility] [address] [id number] [address] [place] [address], [place] [address] Jul, [facility] [address] [id number] [address] [place] [address], [place] [address] Jul, [facility] [address] [id number] [address] [place] [address], [place] [address] Jul, [facility] [address] [id number] [address] [place] [address], [place] [address] Jul, [facility] [address] [id number] [address] [place] [address], [place] [address] Jun, [facility] [address] [id number] [address] [place] [address], [place] [address] Jun, [facility] [address] [id number] [address] [place] [address], [place] [address] Jun, [facility] [address] [id number] [address] [place] [address], [place] [address] Jun, [facility] [address] [id number] [address] [place] [address], [place] [address] Jun, [facility] [address] [id number] [address] [place] [address], [place] [address] Jun, [facility] [address] [id number] [address] [place] [address], [place] [address] Jun, [facility] [address] [id number] [address] [place] [address], [place] [address] Jun, [facility] [address] [id number] [address] [place] [address], [place] [address] May, [facility] [address] [id number] [address] [place] [address], [place] [address] May, [facility] [address] [id number] [address] [place] [address], [place] [address] May, [facility] [address] [id number] [address] [place] [address], [place] [address] May, [facility] [address] [id number] [address] [place] [address], [place] [address] May, [facility] [address] [id number] [address] [place] [address], [place] [address] May, [facility] [address] [id number] [address] [place] [address], [place] [address] May, [facility] [address] [id number] [address] [place] [address], [place] [address] May, [facility] [address] [id number] [address] [place] [address], [place] [address] Apr, [facility] [address] [id number] [address] [place] [address] Apr, [facility] [address] [id number] [address] [place] [address], [place] [address] Apr, [facility] [address] [id number] [address] [place] [address] Apr, [facility] [address] [id number] [address] [place] [address] Apr, [facility] [address] [id number] [address] [place] [address] Apr, [facility] [address] [id number] [address] [place] [address], [place] [address] Mar, [facility] [address] [id number] [address] [place] [address] Mar, [facility] [address] [id number] [address] [place] [address], [place] [address] Mar, [facility] [address] [id number] [address] [place] [address], [place] [address] Mar, [facility] [address] [id number] [address] [place] [address], [place] [address] Mar, [facility] [address] [id number] [address] [place] [address], [place] [address] Mar, [facility] [address] [id number] [address] [place] [address], [place] [address] Mar, [facility] [address] [id number] [address] [place] [address], [place] [address] 30 Feb, 2012 [facility] [address] [id number] [address] [place] [address], [place] [address] 30 Feb, 2013 [facility] [address] [id number] [address] [place] [address], [place] [address] 27 Feb, 2013 [facility] [address] [id number] [address] [place] [address], [place] [address] Feb, 2012 [facility] [address] [id number] [address] [place] [address], [place] [address] Feb, [facility] [address] [id number] [address] [place] [address], [place] [address] Feb, [facility] [address] [id number] [address] [place] [address], [place] [address] Jan, [facility] [address] [id number] [address] [place] [address], [place] [address] Jan, [facility] [address] [id number] [address] [place] [address], [place] [address] Jan, [facility] [address] [id number] [address] [place] [address], [place] [address] Jan, [facility] [address] [id number] [address] [place] [address], [place] [address] Jan, [facility] [address] [id number] [address] [place] [address], [place] [address] Jan, [facility] [address] [id number] [address] [place] [address], [place] [address] Jan, [facility] [address] [id number] [address] [place] [address], [place] [address] Jan, [facility] [address] [id number] [address] [place] [address], [place] [address] Jan, [facility] [address] [id number] [address] [place] [address], [place] [address] Dec, [facility] [address] [id number] [address] [place] [address], [place] [address] Dec, [facility] [address] [id number] [address] [place] [address], [place] [address] Dec, [facility] [address] [id number] [address] [place] [address], [place] [address] Dec, [facility] [address] [id number] [address] [place] [address], [place] [address] Dec, [facility] [address] [id number] [address] [place] [address], [place] [address] Dec, [facility] [address] [id number] [address] [place] [address], [place] [address] Dec, [facility] [address] [id number] [address] [place] [address], [place] [address] Dec, [facility] [address] [id number] [address] [place] [address], [place] [address] Dec, [facility] [address] [id number] [address] [place] [address], [place] [address] Dec, [facility] [address] [id number] [address] [place] [address], [place] [address] Dec, [facility] [address] [id number] [address] [place] [address], [place] [address] Dec, [facility] [address] [id number] [address] [place] [address], [place] [address] Dec, [facility] [address] [id number] [address] [place] [address], [place] [address] Nov, [facility] [address] [id number] [address] [place] [address], [place] [address] Nov, [facility] [address] [id number] [address] [place] [address], [place] [address] Nov, [facility] [address] [id number] [address] [place] [address], [place] [address] Nov, [facility] [address] [id number] [address] [place] [address], [place] [address] October, [facility] [address] [id number] [address] [place] [address], [place] [address] October, [facility] [address] [id number] [address] [place] [address], [place] [address] October, [facility] [address] [id number] [address] [place] [address], [place] [address] October, [facility] [address] [id number] [address] [place] [address], [place] [address] October, [facility] [address] [id number] [address] [place] [address], [place] [address] October, [facility] [address] [id number] [address] [place] [address], [place] [address] Sep, [facility] [address] [id number] [address] [place] [address], [place] [address] Sep, [facility] [address] [id number] [address] [place] [address], [place] [address] Sep, [facility] [address] [id number] [address] [place] [address], [place] [address] Sep, [facility] [address] [id number] [address] [place] [address], [place] [address] Sep, [facility] [address] [id number] [facility] [place] [address] 16 Sep, 2012 [facility] [address] [id number] [address] [place] [address], [place] [address] 12 Sep, 2012 [facility] [address] [id number] [address] [place] [address], [place] [address] Sep, [facility] [address] [id number] [address] [place] [address], [place] [address] Sep, [facility] [address] [id number] [address] [place] [address], [place] [address] Sep, [facility] [address] [id number] [address] [place] [address], [place] [address] Sep, [facility] [address] [id number] [address] [place] [address], [place] [address] Aug, [facility] [address] [id number] [address] [place] [address], [place] [address] 25 Aug, 2012 [facility] [address] [id number] [address] [place] [address], [place] [address] 25 Aug, 2012 [facility] [address] [id number] [address] [place] [address], [place] [address] 21 Aug, 2012 [facility] [address] [id number] [address] [place] [address], [place] [address] 19 Aug, 2012 [facility] [address] [id number] [address] [place] [address], [place] [address] 18 Aug, 2012 [facility] [address] [id number] [address] [place] [address], [place] [address] 17 Aug, 2012 [facility] [address] [id number] [address] [place] [address], [place] [address] 15 Aug, 2012 [facility] [address] [id number] [address] [place] [address], [place] [address] 15 Aug, 2012 [facility] [address] [id number] [address] [place] [address], [place] [address] Aug, [facility] [address] [id number] [address] [place] [address], [place] [address] Aug, [facility] [address] [id number] [address] [place] [address], [place] [address] Aug, [facility] [address] [id number] [address] [place] [address], [place] [address] Jul, [facility] [address] [id number] [address] [place] [address], [place] [address] Jul, [facility] [address] [id number] [address] [place] [address], [place] [address] Jul, [facility] [address] [id number] [address] [place] [address], [place] [address] Jul, [facility] [address] [id number] [address] [place] [address], [place] [address] Jul, [facility] [address] [id number] [address] [place] [address], [place] [address] Jul, [facility] [address] [id number] [address] [place] [address], [place] [address] Jul, [facility] [address] [id number] [address] [place] [address], [place] [address] Jul, [facility] [address] [id number] [address] [place] [address], [place] [address] Jul, [facility] [address] [id number] [address] [place] [address], [place] [address] Jul, [facility] [address] [id number] [address] [place] [address], [place] [address] May, [facility] [id number] [id number] [place] [id number] May, [facility] [address] [id number] [address] [place] [address], [place] [address] May, [facility] [address] [id number] [address] [place] [id number] May, [facility] [address] [facility] [id number] [address] [place] [id number] May, [facility] [address] [facility] [id number] [address] [place] [id number] Apr, [facility] [address] [id number] [place] [id number] Apr, [facility] [address] [facility] [id number] [address] [place] [id number] Apr, [facility] [address] [facility] [id number] [address] [place] [address] Mar, [facility] [address] [id number] [place] [id number] Mar, [facility] [address] [facility] [id number] [address] [place] [id number] Mar, [facility] [address] [id number] [place] [id number] Feb, [facility] [address] [facility] [id number] [address] [place] [address] Feb, [facility] [address] [facility] [id number] [address] [place] [address] Feb, [facility] [place] [address] [id number] [place] [id number] Feb, [facility] [address] [id number] [place] [id number] Feb, [facility] [address] [id number] [place] [id number] Jan, [facility] [address] [id number] [address] [place] [address], [place] [address] Jan, [facility] [address] [id number] [place] [id number] Jan, [facility] [address] [id number] [place] [id number] Jan, [facility] [address] [id number] [place] [id number] Jan, [facility] [address] [facility] [id number] [address] [place] [address], [place] [address] Jan, [facility] [address] [facility] [id number] [address] [place] [address], [place] [address] Jan, [facility] [address] [facility] [id number] [address] [place] [address], [place] [address] Aug, [facility] [address] [id number] [place] [id number] Aug, [facility] [address] [facility] [id number] [address] [place] [address], [place] [address] Jul, [facility] [address] [facility] [id number] [address] [place] [address], [place] [address] Jul, [facility] [address] [facility] [id number] [address] [place] [address], [place] [address] Jul, [facility] [address] [id number] [place] [id number] Jul, [facility] [address] [facility] [id number] [address] [place] [address], [place] [address] Jul, [facility] [address] [id number] [place] [id number] Jul, [facility] [address] [facility] [id number] [address] [place] [address], [place] [address] Jul, [facility] [address] [id number] [place] [id number] Jul, [facility] [address] [id number] [place] [id number] Jul, [facility] [address] [id number] [place] [id number] Jul, [facility] [address] [facility] [facility] [id number] [address] [place] [address], [place] [id number] May, [facility] [address] [id number] [address] [place] [id number] May, [facility] [address] [id number] [address] [place] [id number] May, [facility] [address] [id number] [address] [place] [id number] Apr, [facility] [address] [id number] [address] [place] [id number] Jan, [facility] [address] [id number] [address] [place] [id number] Jan, [facility] [address] [id number] [address] [place] [id number] Dec, [facility] [address] [id number] [address] [place] [id number] Dec, [facility] [address] [id number] [address] [place] [id number] May, [facility] [address] [id number] [address] [place] [id number] Mar, [facility] [address] [id number] [address] [place] [id number] Mar, [facility] [address] [id number] [address] [place] [id number] Jan, IMMUNIZATIONS No Known Immunizations SOCIAL HISTORY [...]
--- OUTSIDE RECORDS SUMMARY | 2020-01-28 13:00 | XMS REPORT ---
Author Author Heydi Candelario Doctor Organization [facility] Address Unknown Phone Unavailable Care Team Providers Care [employer] Consultant Name Role Phone Migration, Doctor Unavailable Unavailable PROBLEMS Type Condition ICD9-CM Code XIL37-EY Code Onset Dates Condition S tatus SNOMED Code Problem Chronic pain syndrome G89.4 Active 210070927 Problem Sore throat J02.9 Active 75842843 3 Problem Choriocarcinoma C58 Active 1881 08689 Problem [facility] current use of anticoagulant Z79.01 Active 723757751 Problem History of venous thromboembolism V12.51 Active 810951899 Problem Cellulitis of unspecified part of limb L03.119 Active 247877515 Problem Gastroesophageal reflux disease without esophagitis K21.9 Active 407839795 Problem History of pulmonary embolism Z86.711 Active 002095357 Problem Pseudotumor cerebri G93.2 Active 64808384 Problem History of DVT (deep vein thrombosis) Z86.718 Active [id number] ALLERGIES No Information ENCOUNTERS Encounter Location Date Diagnosis [place] [address] [address] [facility] [id number] [address] [place] [address] 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, 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 [place] N [facility] [id number] [address] [place] [address] Apr, 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 [place] 0423[place] N [facility] [id number] [address] [place] [address] Apr, Cellulitis of unspecified pa rt of limb L03.119 ; Allergic contact dermatitis due to adhesives L23.1 and Chronic pain syndrome G89.4 [facility] [place] [address] [facility] [id number] [address] [place] [address] Apr, [place] [address] [address] [facility] [id number] [address] [place] [address] Apr, [facility] 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.01 ; Cellulitis of unspecified part of limb L03.119 ; Chronic pain syndrome G89.4 and Anxiety F41.9 [place] [address] [place] [id number] [address] [place] [address] 16 Apr, 2015 [place] [address] [place] [id number] [place] [address] Apr, [place] [address] [address] Mar, [place] [address] [address] [place] [id number] [place] [address] Mar, [place] [address] [address] Mar, Sore throat J02.9 ; Gastroes ophageal reflux disease without esophagitis K21.9 ; Pseudotumor cerebri G93.2 ; Chronic pain syndrome G89.4 ; Choriocarcinoma C58 ; History of pulmonary embolism Z86.711 ; History of DVT (deep vein thrombosis) Z86.718 ; Anxiety F41.9 and Tachycardia R00.0 [place] [address] [address] Feb, Anxiety 300.00 and Chronic p ain 338.29 [place] [address] [place] [id number] [address] [place] [address] Feb, [place] [address] [id number] [place] [address] Feb, [place] [address] [place] [id number] [place] [address] Jan, [facility] current use of ant icoagulant therapy V58.61 and Dysuria 788.1 [place] [address] [place] [id number] [address] [place] [address] Jan, Dysuria 788.1 [place] [address] [address] [place] [id number] [place] [address] Jan, Anxiety 300.00 and Chronic p ain 338.29 [place] [address] [address] Jan, [facility] [place] [address] [address] Jan, [place] [address] [address] Jan, [place] [address] [address] Dec, Weakness 780.79 [place] [address] [address] 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, 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 [place] [address] [address] Dec, Palpitations 785.1 ; Tremor 781.0 ; Weakness 780.79 ; [facility] current use of anticoagulant therapy V58.61 and Yeast vaginitis 112.1 [place] [address] [address] Dec, [place] [address] [address] Dec, Cervicalgia 723.1 ; Tachycar yoseph 785.0 ; Pseudotumor cerebri 348.2 and History of venous thromboembolism V12.51 [place] [address] [place] [id number] [address] [place] [address] Nov, [place] [address] [address] Nov, [place] [address] [address] Nov, Tachycardia 785.0 ; Pseudotu mor cerebri 348.2 ; Anxiety 300.00 and History of venous thromboembolism V12.51 [facility] [address] [id number] [address] [place] [address], [place] [address] Nov, [facility] [address] [id number] [address] [place] [address], [place] [address] 18 Nov, 2014 [facility] [address] [id number] [address] [place] [address], [place] [address] 16 Nov, 2014 [facility] [address] [id number] [address] [place] [address], [place] [address] Nov, [facility] [address] [id number] [address] [place] [address], [place] [address] Nov, [facility] [address] [id number] [address] [place] [address], [place] [address] Nov, [facility] [address] [id number] [address] [place] [address], [place] [address] Nov, [facility] [address] [id number] [address] [place] [address] October, [facility] [address] [id number] [address] [place] [address] October, [facility] [address] [id number] [address] [place] [address] October, Pain in thoracic spine 724.1 and Tachycardia 785.0 [facility] [address] [id number] [address] [place] [address] October, [facility] [address] [id number] [address] [place] [address] October, [facility] [address] [id number] [address] [place] [address] Sep, [facility] [address] [id number] [address] [place] [address] Sep, [facility] [address] [id number] [address] [place] [address] Aug, [facility] [address] [id number] [address] [place] [address], [place] [address] Aug, [facility] [address] [id number] [address] [place] [address], [place] [address] Aug, [facility] [address] [id number] [address] [place] [address], [place] [address] 17 Aug, 2014 [facility] [address] [id number] [address] [place] [address], [place] [address] Aug, [facility] [address] [id number] [address] [place] [address], [place] [address] 16 Aug, 2014 [facility] [address] [id number] [address] [place] [address], [place] [address] Aug, [facility] [address] [id number] [address] [place] [address], [place] [address] Aug, [facility] [address] [id number] [address] [place] [address], [place] [address] Aug, 2014 [facility] [address] [id number] [address] [place] [address], [place] [address] Aug, [facility] [address] [id number] [address] [place] [address], [place] [address] Aug, [facility] [address] [id number] [address] [place] [address], [place] [address] Aug, [facility] [address] [id number] [address] [place] [address], [place] [address] Jul, 2014 [facility] [address] [id number] [address] [place] [address], [place] [address] Jul, 2014 [facility] [address] [id number] [address] [place] [address], [place] [address] Jul, 2014 [facility] [address] [id number] [address] [place] [address], [place] [address] Jul, 2014 [facility] [address] [id number] [address] [place] [address], [place] [address] b, 2014 [facility] [address] [id number] [address] [place] [address], [place] [address] 23 Jul, 2014 [facility] [address] [id number] [address] [place] [address], [place] [address] 23 Jul, 2014 [facility] [address] [id number] [address] [place] [address], [place] [address] 23 Jul, 2014 [facility] [address] [id number] [address] [place] [address], [place] [id number] 20 Jul, 2014 [facility] [address] [id number] [address] [place] [address], [place] [address] 20 Jul, 2014 [facility] [address] [id number] [address] [place] [address], [place] [address] 19 Jul, 2014 [facility] [address] [id number] [address] [place] [address], [place] [address] 19 Jul, 2014 [facility] [address] [id number] [address] [place] [address], [place] [address] 17 Jul, 2014 [facility] [address] [id number] [address] [place] [address], [place] [address] 17 Jul, 2014 [facility] [address] [id number] [address] [place] [address], [place] [address] 16 Jul, 2014 [facility] [address] [id number] [address] [place] [address], [place] [address] 16 Jul, 2014 [facility] [address] [id number] [address] [place] [address], [place] [address] 16 Jul, 2014 [facility] [address] [id number] [address] [place] [address], [place] [address] 16 Jul, 2014 [facility] [address] [id number] [address] [place] [address], [place] [id number] 13 Jul, 2014 [facility] [address] [id number] [address] [place] [address], [place] [address] Jul, 2014 [facility] [address] [id number] [address] [place] [address], [place] [address] Jul, 2014 [facility] [address] [id number] [address] [place] [address], [place] [address] Jul, 2014 [facility] [address] [id number] [address] [place] [address], [place] [address] Jul, 2014 [facility] [address] [id number] [address] [place] [address], [place] [address] Jul, 2014 [facility] [address] [id number] [address] [place] [address], [place] [address] Jul, [facility] [address] [id number] [address] [place] [address], [place] [address] Jul, [facility] [address] [id number] [address] [place] [address], [place] [address] Jul, [facility] [address] [id number] [address] [place] [address], [place] [address] Jul, [facility] [address] [id number] [address] [place] [address], [place] [address] Jul, [facility] [address] [id number] [address] [place] [address], [place] [address] Jul, [facility] [address] [id number] [address] [place] [address], [place] [address] Jun, [facility] [address] [id number] [address] [place] [address], [place] [address] Jun, [facility] [address] [id number] [address] [place] [address], [place] [address] Jun, [facility] [address] [id number] [address] [place] [address], [place] [address] Jun, [facility] [address] [id number] [address] [place] [address], [place] [address] Jun, [facility] [address] [id number] [address] [place] [address], [place] [address] Jun, [facility] [address] [id number] [address] [place] [address], [place] [address] Jun, [facility] [address] [id number] [address] [place] [address], [place] [address] Jun, [facility] [address] [id number] [address] [place] [address], [place] [address] Jun, [facility] [address] [id number] [address] [place] [address], [place] [address] Jun, [facility] [address] [id number] [address] [place] [address], [place] [address] Jun, [facility] [address] [id number] [address] [place] [address], [place] [address] Jun, [facility] [address] [id number] [address] [place] [address], [place] [address] Jun, [facility] [address] [id number] [address] [place] [address], [place] [address] Jun, [facility] [address] [id number] [address] [place] [address], [place] [address] Jun, [facility] [address] [id number] [address] [place] [address], [place] [address] Jun, [facility] [address] [id number] [address] [place] [address], [place] [address] Jun, [facility] [address] [id number] [address] [place] [address], [place] [address] Jun, [facility] [address] [id number] [address] [place] [address], [place] [address] Jun, [facility] [address] [id number] [address] [place] [address], [place] [address] Jun, [facility] [address] [id number] [address] [place] [address], [place] [address] May, [facility] [address] [id number] [address] [place] [address], [place] [address] May, [facility] [address] [id number] [address] [place] [address], [place] [address] May, [facility] [address] [id number] [address] [place] [address], [place] [address] May, [facility] [address] [id number] [address] [place] [address], [place] [address] May, [facility] [address] [id number] [address] [place] [address], [place] [address] May, [facility] [address] [id number] [address] [place] [address], [place] [address] May, [facility] [address] [id number] [address] [place] [address], [place] [address] May, [facility] [address] [id number] [address] [place] [address], [place] [address] May, [facility] [address] [id number] [address] [place] [address], [place] [address] May, [facility] [address] [id number] [address] [place] [address], [place] [address] May, [facility] [address] [id number] [address] [place] [address], [place] [address] 18 May, 2014 [facility] [address] [id number] [address] [place] [address], [place] [address] 18 May, 2014 [facility] [address] [id number] [address] [place] [address], [place] [address] 17 May, 2014 [facility] [address] [id number] [address] [place] [address], [place] [address] 16 May, 2014 [facility] [address] [id number] [address] [place] [address], [place] [address] 16 May, 2014 [facility] [address] [id number] [address] [place] [address], [place] [address] 15 May, 2014 [facility] [address] [id number] [address] [place] [address], [place] [id number] 15 May, 2014 [facility] [address] [id number] [address] [place] [address], [place] [address] May, [facility] [address] [id number] [address] [place] [address], [place] [address] May, [facility] [address] [id number] [address] [place] [address], [place] [address] May, [facility] [address] [id number] [address] [place] [address], [place] [address] May, [facility] [address] [id number] [address] [place] [address], [place] [address] May, [facility] [address] [id number] [address] [place] [address], [place] [address] May, [facility] [address] [id number] [address] [place] [address], [place] [address] May, [facility] [address] [id number] [address] [place] [address], [place] [address] May, [facility] [address] [id number] [address] [place] [address], [place] [address] May, [facility] [address] [id number] [address] [place] [address], [place] [address] May, [facility] [address] [id number] [address] [place] [address], [place] [address] May, [facility] [address] [id number] [address] [place] [address], [place] [address] May, [facility] [address] [id number] [address] [place] [address], [place] [address] May, [facility] [address] [id number] [address] [place] [address], [place] [address] May, [facility] [address] [id number] [address] [place] [address], [place] [address] May, [facility] [address] [id number] [address] [place] [address], [place] [address] May, [facility] [address] [id number] [address] [place] [address], [place] [address] Apr, [facility] [address] [id number] [address] [place] [address], [place] [address] Apr, [facility] [address] [id number] [address] [place] [address], [place] [address] Apr, [facility] [address] [id number] [address] [place] [address], [place] [address] Apr, [facility] [address] [id number] [address] [place] [address], [place] [address] Apr, [facility] [address] [id number] [address] [place] [address], [place] [id number] Apr, [facility] [address] [id number] [address] [place] [address], [place] [address] Apr, [facility] [address] [id number] [address] [place] [address], [place] [address] Apr, [facility] [address] [id number] [address] [place] [address], [place] [address] Apr, [facility] [address] [id number] [address] [place] [address], [place] [address] Apr, [facility] [address] [id number] [address] [place] [address], [place] [address] Mar, [facility] [address] [id number] [address] [place] [address], [place] [address] Mar, [facility] [address] [id number] [address] [place] [address], [place] [address] Mar, [facility] [address] [id number] [address] [place] [address], [place] [address] 31 Mar, 2013 [facility] [address] [id number] [address] [place] [address], [place] [address] 30 Mar, 2013 [facility] [address] [id number] [address] [place] [address], [place] [address] 30 Mar, 2014 [facility] [address] [id number] [address] [place] [address], [place] [address] Mar, 2013 [facility] [address] [id number] [address] [place] [address], [place] [address] 17 Mar, 2013 [facility] [address] [id number] [address] [place] [address], [place] [id number] 15 Mar, 2014 [facility] [address] [id number] [address] [place] [id number] 15 Mar, 2014 [facility] [address] [id number] [address] [place] [address], [place] [id number] 15 Mar, 2014 [facility] [address] [id number] [address] [place] [id number] Mar, [facility] [address] [id number] [address] [place] [address], [place] [id number] Mar, [facility] [address] [id number] [address] [place] [id number] Mar, [facility] [address] [id number] [address] [place] [id number] Mar, [facility] [address] [id number] [address] [place] [id number] Mar, 2013 [facility] [address] [id number] [address] [place] [address], [place] [id number] Mar, [facility] [address] [id number] [address] [place] [id number] Mar, [facility] [address] [id number] [address] [place] [id number] Mar, 2013 [facility] [address] [id number] [address] [place] [address], [place] [id number] 02 Mar, 2013 [facility] [address] [id number] [address] [place] [address], [place] [id number] 05 Sep, 2013 [facility] [address] [id number] [address] [place] [address], [place] [id number] 05 Sep, 2013 [facility] [address] [id number] [address] [place] [address], [place] [id number] 04 Sep, 2013 [facility] [address] [id number] [address] [place] [address], [place] [id number] 04 Sep, 2013 [facility] [address] [id number] [address] [place] [address], [place] [id number] 03 Feb, 2013 [facility] [address] [id number] [address] [place] [address], [place] [id number] Feb, 2013 [facility] [address] [id number] [address] [place] [address], [place] [id number] Feb, 2013 [facility] [address] [id number] [address] [place] [address], [place] [id number] Feb, 2013 [facility] [address] [id number] [address] [place] [address], [place] [id number] Feb, 2013 [facility] [address] [id number] [address] [place] [address], [place] [id number] Feb, 2013 [facility] [address] [id number] [address] [place] [address], [place] [id number] Jan, [facility] [address] [id number] [address] [place] [address], [place] [id number] Jan, [facility] [address] [id number] [address] [place] [address], [place] [id number] Jan, [facility] [address] [id number] [address] [place] [address], [place] [id number] Jan, [facility] [address] [id number] [address] [place] [address], [place] [id number] Jan, [facility] [address] [id number] [address] [place] [address], [place] [id number] Jan, [facility] [address] [id number] [address] [place] [address], [place] [id number] Jan, [facility] [address] [id number] [address] [place] [address], [place] [id number] Jan, [facility] [address] [id number] [address] [place] [address], [place] [id number] Jan, [facility] [address] [id number] [address] [place] [address], [place] [id number] Jan, [facility] [address] [id number] [address] [place] [address], [place] [id number] Jan, [facility] [address] [id number] [address] [place] [address], [place] [id number] Jan, [facility] [address] [id number] [address] [place] [address], [place] [id number] Dec, [facility] [address] [id number] [address] [place] [address], [place] [id number] Dec, [facility] [address] [id number] [address] [place] [address], [place] [id number] Dec, [facility] [address] [id number] [address] [place] [address], [place] [address] Dec, [facility] [address] [id number] [address] [place] [address], [place] [address] Dec, [facility] [address] [id number] [address] [place] [address], [place] [address] Dec, [facility] [address] [id number] [address] [place] [address], [place] [id number] Dec, [facility] [address] [id number] [address] [place] [address], [place] [address] Dec, [facility] [address] [id number] [address] [place] [address], [place] [address] Dec, [facility] [address] [id number] [address] [place] [address], [place] [id number] Dec, [facility] [address] [id number] [address] [place] [address], [place] [id number] Dec, [facility] [address] [id number] [address] [place] [address], [place] [id number] Dec, [facility] [address] [id number] [address] [place] [address], [place] [id number] Nov, [facility] [address] [id number] [address] [place] [address], [place] [address] Nov, [facility] [address] [id number] [address] [place] [address], [place] [address] Nov, [facility] [address] [id number] [address] [place] [address], [place] [id number] Nov, [facility] [address] [id number] [address] [place] [address], [place] [id number] Nov, [facility] [address] [id number] [address] [place] [address], [place] [address] Nov, [facility] [address] [id number] [address] [place] [address], [place] [id number] Nov, [facility] [address] [id number] [address] [place] [address], [place] [address] Nov, [facility] [address] [id number] [address] [place] [address] Nov, [facility] [address] [id number] [address] [place] [address], [place] [id number] Nov, [facility] [address] [id number] [address] [place] [address], [place] [id number] Nov, [facility] [address] [id number] [address] [place] [address], [place] [address] Nov, [facility] [address] [id number] [address] [place] [address], [place] [address] Nov, [facility] [address] [id number] [address] [place] [address], [place] [address] Nov, [facility] [address] [id number] [address] [place] [address], [place] [address] October, [facility] [address] [id number] [address] [place] [address], [place] [address] October, [facility] [address] [id number] [address] [place] [address], [place] [address] October, [facility] [address] [id number] [address] [place] [address], [place] [address] October, [facility] [address] [id number] [address] [place] [address], [place] [address] October, [facility] [address] [id number] [address] [place] [address], [place] [id number] October, [facility] [address] [id number] [address] [place] [address], [place] [address] October, [facility] [address] [id number] [address] [place] [address], [place] [id number] October, [facility] [address] [id number] [address] [place] [address], [place] [address] October, [facility] [address] [id number] [address] [place] [address], [place] [id number] October, [facility] [address] [id number] [address] [place] [address], [place] [id number] October, [facility] [address] [id number] [address] [place] [address], [place] [id number] October, [facility] [address] [id number] [address] [place] [address], [place] [address] Sep, [facility] [address] [id number] [address] [place] [address], [place] [id number] Sep, [facility] [address] [id number] [facility] [address] Sep, [facility] [address] [id number] [address] [place] [address], [place] [address] Sep, [facility] [address] [id number] [address] [place] [address], [place] [id number] Sep, [facility] [address] [id number] [address] [place] [address], [place] [address] Sep, [facility] [address] [id number] [address] [place] [address], [place] [address] Aug, [facility] [address] [id number] [address] [place] [address], [place] [address] Aug, [facility] [address] [id number] [address] [place] [address], [place] [address] Aug, [facility] [address] [id number] [address] [place] [address], [place] [address] Aug, [facility] [address] [id number] [address] [place] [address], [place] [address] Aug, [facility] [address] [id number] [address] [place] [address], [place] [address] Aug, [facility] [address] [id number] [address] [place] [address], [place] [address] Jul, [facility] [address] [id number] [address] [place] [address], [place] [address] Jul, [facility] [address] [id number] [address] [place] [address], [place] [address] Jul, [facility] [address] [id number] [address] [place] [address], [place] [id number] Jul, [facility] [address] [id number] [address] [place] [address], [place] [address] Jul, [facility] [address] [id number] [address] [place] [address], [place] [id number] 13 Jul, 2013 [facility] [address] [id number] [address] [place] [address], [place] [address] Jul, [facility] [address] [id number] [address] [place] [address], [place] [address] Jul, [facility] [address] [id number] [address] [place] [address], [place] [address] Jul, [facility] [address] [id number] [address] [place] [address], [place] [id number] Jul, [facility] [address] [id number] [address] [place] [address], [place] [address] Jun, [facility] [address] [id number] [address] [place] [address], [place] [address] Jun, [facility] [address] [id number] [address] [place] [address], [place] [address] Jun, [facility] [address] [id number] [address] [place] [address], [place] [id number] Jun, [facility] [address] [id number] [address] [place] [address], [place] [address] Jun, [facility] [address] [id number] [address] [place] [address], [place] [address] Jun, [facility] [address] [id number] [address] [place] [address], [place] [address] Jun, [facility] [address] [id number] [address] [place] [address], [place] [address] Jun, [facility] [address] [id number] [address] [place] [address], [place] [address] May, [facility] [address] [id number] [address] [place] [address], [place] [id number] May, [facility] [address] [id number] [address] [place] [address] [address] May, [facility] [address] [id number] [address] [place] [address], [place] [address] May, [facility] [address] [id number] [address] [place] [address], [place] [address] May, [facility] [address] [id number] [address] [place] [address], [place] [address] May, [facility] [address] [id number] [address] [place] [address], [place] [address] May, [facility] [address] [id number] [address] [place] [address], [place] [address] May, [facility] [address] [id number] [address] [place] [address], [place] [address] Apr, [facility] [address] [id number] [address] [place] [address], [place] [address] Apr, [facility] [address] [id number] [address] [place] [address] Apr, [facility] [address] [id number] [address] [place] [address] Apr, [facility] [address] [id number] [address] [place] [id number] Apr, [facility] [address] [id number] [address] [place] [address] Apr, [facility] [address] [id number] [address] [place] [address] Mar, [facility] [address] [id number] [address] [place] [address] Mar, [facility] [address] [id number] [address] [place] [address] Mar, [facility] [address] [id number] [address] [place] [address] Mar, [facility] [address] [id number] [address] [place] [address], [place] [address] Mar, [facility] [address] [id number] [address] [place] [address], [place] [id number] Mar, [facility] [address] [id number] [address] [place] [address], [place] [address] Mar, [facility] [address] [id number] [address] [place] [address], [place] [address] 30 Feb, 2013 [facility] [address] [id number] [address] [place] [address], [place] [address] 30 Feb, 2013 [facility] [address] [id number] [address] [place] [address], [place] [address] 27 Feb, 2013 [facility] [address] [id number] [address] [place] [address], [place] [id number] Feb, [facility] [address] [id number] [address] [place] [address], [place] [id number] Feb, [facility] [address] [id number] [address] [place] [address], [place] [id number] Feb, [facility] [address] [id number] [address] [place] [address], [place] [id number] Jan, [facility] [address] [id number] [address] [place] [address], [place] [id number] Jan, [facility] [address] [id number] [address] [place] [address], [place] [address] Jan, [facility] [address] [id number] [address] [place] [address], [place] [address] Jan, [facility] [address] [id number] [address] [place] [address], [place] [address] Jan, [facility] [address] [id number] [address] [place] [address], [place] [id number] Jan, [facility] [address] [id number] [address] [place] [address], [place] [id number] Jan, [facility] [address] [id number] [address] [place] [address], [place] [address] Jan, [facility] [address] [id number] [address] [place] [address], [place] [id number] Jan, [facility] [address] [id number] [address] [place] [address], [place] [address] Dec, [facility] [address] [id number] [address] [place] [address], [place] [address] Dec, [facility] [address] [id number] [address] [place] [address], [place] [address] Dec, [facility] [address] [id number] [address] [place] [address], [place] [id number] Dec, [facility] [address] [id number] [address] [place] [address], [place] [address] Dec, [facility] [address] [id number] [address] [place] [address], [place] [address] Dec, [facility] [address] [id number] [address] [place] [address], [place] [address] Dec, [facility] [address] [id number] [address] [place] [address], [place] [address] Dec, [facility] [address] [id number] [address] [place] [address], [place] [id number] Dec, [facility] [address] [id number] [address] [place] [address], [place] [address] Dec, [facility] [address] [id number] [address] [place] [address], [place] [address] Dec, [facility] [address] [id number] [address] [place] [address], [place] [address] Dec, [facility] [address] [id number] [address] [place] [address], [place] [id number] Dec, [facility] [address] [id number] [address] [place] [address], [place] [id number] Nov, [facility] [address] [id number] [address] [place] [address], [place] [address] Nov, [facility] [address] [id number] [address] [place] [address], [place] [address] Nov, [facility] [address] [id number] [address] [place] [address], [place] [address] Nov, [facility] [address] [id number] [address] [place] [address], [place] [address] October, [facility] [address] [id number] [address] [place] [address], [place] [address] October, [facility] [address] [id number] [address] [place] [address], [place] [id number] October, [facility] [address] [id number] [address] [place] [address], [place] [address] October, [facility] [address] [id number] [address] [place] [address], [place] [id number] October, [facility] [address] [id number] [address] [place] [address], [place] [id number] October, [facility] [address] [id number] [address] [place] [address], [place] [address] 30 Sep, 2012 [facility] [address] [id number] [address] [place] [address], [place] [address] 29 Sep, 2012 [facility] [address] [id number] [address] [place] [address], [place] [address] 27 Sep, 2012 [facility] [address] [id number] [address] [place] [address], [place] [address] 23 Sep, 2012 [facility] [address] [id number] [address] [place] [address], [place] [address] Sep, [facility] [address] [id number] [address] [place] [address], [place] [id number] 16 Sep, 2012 [facility] [address] [id number] [facility] [place] [id number] 12 Sep, 2012 [facility] [address] [id number] [address] [place] [address], [place] [address] Sep, [facility] [address] [id number] [address] [place] [address], [place] [address] Sep, [facility] [address] [id number] [address] [place] [address], [place] [address] Sep, [facility] [address] [id number] [address] [place] [address], [place] [address] Sep, [facility] [address] [id number] [address] [place] [address], [place] [address] Aug, [facility] [address] [id number] [address] [place] [address], [place] [id number] Aug, [facility] [address] [id number] [address] [place] [address], [place] [address] [address], [address] [facility] [address] [id number] [address] [place] [address], [place] [id number] 21 Aug, 2012 [facility] [address] [id number] [address] [place] [address], [place] [id number] [address], [address] [facility] [address] [id number] [address] [place] [address], [place] [id number] 18 Aug, 2012 [facility] [address] [id number] [address] [place] [address], [place] [id number] [address], [address] [facility] [address] [id number] [address] [place] [address], [place] [address] 15 Aug, 2012 [facility] [address] [id number] [address] [place] [address], [place] [id number] [address], [address] [facility] [address] [id number] [address] [place] [address], [place] [id number] 11 Aug, 2012 [facility] [address] [id number] [address] [place] [address], [place] [address] Aug, [facility] [address] [id number] [address] [place] [address], [place] [address] Aug, [facility] [address] [id number] [address] [place] [address], [place] [id number] Jul, [facility] [address] [id number] [address] [place] [address], [place] [address] Jul, [facility] [address] [id number] [address] [place] [address], [place] [id number] Jul, [facility] [address] [id number] [address] [place] [address], [place] [address] Jul, [facility] [address] [id number] [address] [place] [address], [place] [id number] Jul, [facility] [address] [id number] [address] [place] [address], [place] [id number] Jul, [facility] [address] [id number] [address] [place] [address], [place] [id number] Jul, [facility] [address] [id number] [address] [place] [address], [place] [address] Jul, [facility] [address] [id number] [address] [place] [address], [place] [address] Jul, [facility] [address] [id number] [address] [place] [id number] Jul, [facility] [address] [id number] [address] [place] [id number] May, [facility] [address] [id number] [place] [id number] May, [facility] [address] [id number] [address] [place] [id number] May, [facility] [address] [id number] [address] [place] [address], [place] [id number] 14 May, 2012 [facility] [address] [id number] [address] [place] [address], [place] [id number] May, [facility] [address] [id number] [address] [place] [address], [place] [id number] Apr, [facility] [address] [id number] [place] [id number] Apr, [facility] [address] [facility] [id number] [address] [place] [address], [place] [id number] Apr, [facility] [address] [facility] [id number] [address] [place] [address], [place] [id number] Mar, [facility] [address] [id number] [place] [id number] Mar, [facility] [address] [facility] [id number] [address] [place] [address], [place] [address] Mar, [facility] [address] [id number] [place] [id number] Feb, [facility] [address] [facility] [id number] [address] [place] [address], [place] [id number] Feb, [facility] [address] [facility] [id number] [address] [place] [address], [place] [id number] Feb, [facility] [address] [id number] [place] [id number] Feb, [facility] [address] [id number] [place] [id number] Feb, [facility] [address] [id number] [place] [id number] Jan, [facility] [address] [id number] [address] [place] [address], [place] [address] Jan, [facility] [address] [id number] [place] [id number] Jan, [facility] [address] [id number] [place] [id number] Jan, [facility] [address] [id number] [place] [id number] Jan, [facility] [address] [id number] [address] [place] [address], [place] [id number] Jan, [facility] [address] [facility] [id number] [address] [place] [address], [place] [id number] Jan, [facility] [address] [facility] [id number] [address] [place] [address], [place] [id number] Aug, [facility] [address] [facility] [id number] [place] [id number] Aug, [facility] [address] [facility] [id number] [address] [place] [address], [place] [id number] Jul, [facility] [address] [facility] [id number] [address] [place] [address], [place] [id number] Jul, [facility] [address] [facility] [id number] [address] [place] [address], [place] [id number] Jul, [facility] [place] [address] [facility] [id number] [place] [id number] Jul, [facility] [address] [facility] [id number] [address] [place] [address], [place] [id number] Jul, [facility] [address] [facility] [id number] [place] [id number] Jul, [facility] [address] [facility] [id number] [address] [place] [address], [place] [id number] Jul, [facility] [address] [id number] [place] [id number] Jul, [facility] [address] [id number] [place] [id number] Jul, [facility] [address] [id number] [place] [id number] Jul, [facility] [address] [facility] [id number] [address] [place] [address], [place] [id number] May, [facility] [address] [facility] [id number] [address] [place] [address], [place] [id number] May, [facility] [address] [id number] [address] [place] [id number] May, [facility] [place] [address] [id number] [address] [place] [id number] Apr, [facility] [place] [address] [id number] [address] [place] [id number] Jan, [facility] [place] [address] [id number] [address] [place] [id number] Jan, [facility] [place] [address] [id number] [address] [place] [id number] Dec, [facility] [place] [address] [id number] [address] [place] [id number] Dec, [facility] [place] [address] [id number] [address] [place] [id number] 16 May, 2009 [facility] [place] [address] [id number] [address] [place] [id number] Mar, [facility] [place] [address] [id number] [address] [place] [id number] Mar, [facility] [place] [address] [id number] [address] [place] [id number] Jan, IMMUNIZATIONS No Known Immunizations SOCIAL HISTORY Never Assessed REASON FOR VISIT [facility] [place]AN OF CARE VITAL SIGNS MEDICATIONS Unknown [...]
--- OUTSIDE RECORDS SUMMARY | 2020-01-28 13:00 | XMS REPORT ---
Author Author Heydi Candelario Doctor Organization [facility] Address Unknown Phone Unavailable Care Team Providers Care Window Covering Sales Consultant Name Role Phone Migration, Doctor Unavailable Unavailable PROBLEMS Type Condition ICD9-CM Code LND56-PG Code Onset Dates Condition S tatus SNOMED Code Problem Chronic pain syndrome G89.4 Active 357515661 Problem Sore throat J02.9 Active 34248449 3 Problem Choriocarcinoma C58 Active 1881 56424 Problem jail current use of anticoagulant Z79.01 Active 658261872 Problem History of venous thromboembolism V12.51 Active 188110976 Problem Cellulitis of unspecified part of limb L03.119 Active 428853087 Problem Gastroesophageal reflux disease without esophagitis K21.9 Active 283266609 Problem History of pulmonary embolism Z86.711 Active 878947596 Problem Pseudotumor cerebri G93.2 Active 62040969 Problem History of DVT (deep vein thrombosis) Z86.718 Active 941300981 ALLERGIES No Information ENCOUNTERS Encounter Location Date Diagnosis [place] [address] [address] [facility] [id number] [address] [place] [address] Apr, 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 [place] [facility] [id number] [address] [place] [address] Apr, 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 [place] [facility] [id number] [address] [place] [address] Apr, Cellulitis of unspecified pa rt of limb L03.119 ; Allergic contact dermatitis due to adhesives L23.1 and Chronic pain syndrome G89.4 [facility] [address] [facility] [id number] [address] [place] [address] Apr, [place] [address] [facility] [id number] [address] [place] [address] Apr, jail 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.01 ; Cellulitis of unspecified part of limb L03.119 ; Chronic pain syndrome G89.4 and Anxiety F41.9 [place] [address] [place] [id number] [address] [place] [address] 16 Apr, 2015 [place] [address] [place] [id number] [place] [address] Apr, [place] [address] [address] Mar, [place] [address] [place] [id number] [place] [address] Mar, [place] [address] [address] Mar, Sore throat J02.9 ; Gastroes ophageal reflux disease without esophagitis K21.9 ; Pseudotumor cerebri G93.2 ; Chronic pain syndrome G89.4 ; Choriocarcinoma C58 ; History of pulmonary embolism Z86.711 ; History of DVT (deep vein thrombosis) Z86.718 ; Anxiety F41.9 and Tachycardia R00.0 [place] [address] [address] Feb, Anxiety 300.00 and Chronic p ain 338.29 [place] [address] [place] [id number] [address] [place] [address] Feb, [place] [id number] [place] [address] Feb, [place] [address] [place] [id number] [place] [address] Jan, jail current use of ant icoagulant therapy V58.61 and Dysuria 788.1 [place] [address] [place] [id number] [address] [place] [address] Jan, Dysuria 788.1 [place] [address] [place] [id number] [place] [address] Jan, Anxiety 300.00 and Chronic p ain 338.29 [place] [address] [address] Jan, [facility] [address] [address] Jan, [place] [address] [address] Jan, [place] [address] [address] Dec, Weakness 780.79 [place] [address] [address] Dec, 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.61 [place] [address] [address] Dec, Palpitations 785.1 ; Tremor 781.0 ; Weakness 780.79 ; jail current use of anticoagulant therapy V58.61 and Yeast vaginitis 112.1 [place] [address] [address] Dec, [place] [address] [address] Dec, Cervicalgia 723.1 ; Tachycar yoseph 785.0 ; Pseudotumor cerebri 348.2 and History of venous thromboembolism V12.51 [place] [address] [place] [id number] [address] [place] [address] Nov, [place] [address] [address] Nov, [place] [address] [address] Nov, Tachycardia 785.0 ; Pseudotu mor cerebri 348.2 ; Anxiety 300.00 and History of venous thromboembolism V12.51 [facility] [address] [id number] [address] [place] [address], [place] [address] Nov, [facility] [address] [id number] [address] [place] [address], [place] [address] 18 Nov, 2014 [facility] [address] [id number] [address] [place] [address], [place] [address] 16 Nov, 2014 [facility] [address] [id number] [address] [place] [address], [place] [address] Nov, [facility] [address] [id number] [address] [place] [address], [place] [address] Nov, [facility] [address] [id number] [address] [place] [address], [place] [address] Nov, [facility] [address] [id number] [address] [place] [address], [place] [address] Nov, [facility] [address] [id number] [address] [place] [address] October, [facility] [address] [id number] [address] [place] [address] October, [facility] [address] [id number] [address] [place] [address] October, Pain in thoracic spine 724.1 and Tachycardia 785.0 [facility] [address] [id number] [address] [place] [address] October, [facility] [address] [id number] [address] [place] [address] October, [facility] [address] [id number] [address] [place] [address] Sep, [facility] [address] [id number] [address] [place] [address] Sep, [facility] [address] [id number] [address] [place] [address] Aug, [facility] [address] [id number] [address] [place] [address], [place] [address] Aug, [facility] [address] [id number] [address] [place] [address], [place] [address] Aug, [facility] [address] [id number] [address] [place] [address], [place] [address] 17 Aug, 2014 [facility] [address] [id number] [address] [place] [address], [place] [address] Aug, [facility] [address] [id number] [address] [place] [address], [place] [address] 16 Aug, 2014 [facility] [address] [id number] [address] [place] [address], [place] [address] Aug, [facility] [address] [id number] [address] [place] [address], [place] [address] Aug, [facility] [address] [id number] [address] [place] [address], [place] [address] Aug, 2014 [facility] [address] [id number] [address] [place] [address], [place] [address] Aug, [facility] [address] [id number] [address] [place] [address], [place] [address] Aug, [facility] [address] [id number] [address] [place] [address], [place] [address] Aug, [facility] [address] [id number] [address] [place] [address], [place] [address] Jul, [address] [facility] [address] [id number] [address] [place] [address], [place] [address] Jul, 2014 [facility] [address] [id number] [address] [place] [address], [place] [address] Jul, [address] [facility] [address] [id number] [address] [place] [address], [place] [address] Jul, 2014 [facility] [address] [id number] [address] [place] [address], [place] [address] b, 2014 [facility] [address] [id number] [address] [place] [address], [place] [address] 23 Jul, 2014 [facility] [address] [id number] [address] [place] [address], [place] [address] 23 Jul, 2014 [facility] [address] [id number] [address] [place] [address], [place] [address] 23 Jul, 2014 [facility] [address] [id number] [address] [place] [address], [place] [address] 20 Jul, 2014 [facility] [address] [id number] [address] [place] [address], [place] [address] 20 Jul, 2014 [facility] [address] [id number] [address] [place] [address], [place] [address] 19 Jul, 2014 [facility] [address] [id number] [address] [place] [address], [place] [address] 19 Jul, 2014 [facility] [address] [id number] [address] [place] [address], [place] [address] 17 Jul, 2014 [facility] [address] [id number] [address] [place] [address], [place] [address] 17 Jul, 2014 [facility] [address] [id number] [address] [place] [address], [place] [address] 16 Jul, 2014 [facility] [address] [id number] [address] [place] [address], [place] [address] 16 Jul, 2014 [facility] [address] [id number] [address] [place] [address], [place] [address] 16 Jul, 2014 [facility] [address] [id number] [address] [place] [address], [place] [address] 16 Jul, 2014 [facility] [address] [id number] [address] [place] [address], [place] [address] 13 Jul, 2014 [facility] [address] [id number] [address] [place] [address], [place] [address] Jul, 2014 [facility] [address] [id number] [address] [place] [address], [place] [address] Jul, 2014 [facility] [address] [id number] [address] [place] [address], [place] [address] Jul, 2014 [facility] [address] [id number] [address] [place] [address], [place] [address] Jul, 2014 [facility] [address] [id number] [address] [place] [address], [place] [address] Jul, 2014 [facility] [address] [id number] [address] [place] [address], [place] [address] Jul, [facility] [address] [id number] [address] [place] [address], [place] [address] Jul, [facility] [address] [id number] [address] [place] [address], [place] [address] Jul, [facility] [address] [id number] [address] [place] [address], [place] [address] Jul, [facility] [address] [id number] [address] [place] [address], [place] [address] Jul, [facility] [address] [id number] [address] [place] [address], [place] [address] Jul, [facility] [address] [id number] [address] [place] [address], [place] [address] Jun, [facility] [address] [id number] [address] [place] [address], [place] [address] Jun, [facility] [address] [id number] [address] [place] [address], [place] [address] Jun, [facility] [address] [id number] [address] [place] [address], [place] [address] Jun, [facility] [address] [id number] [address] [place] [address], [place] [address] Jun, [facility] [address] [id number] [address] [place] [address], [place] [address] Jun, [facility] [address] [id number] [address] [place] [address], [place] [address] Jun, [facility] [address] [id number] [address] [place] [address], [place] [address] Jun, [facility] [address] [id number] [address] [place] [address], [place] [address] Jun, [facility] [address] [id number] [address] [place] [address], [place] [address] Jun, [facility] [address] [id number] [address] [place] [address], [place] [address] Jun, [facility] [address] [id number] [address] [place] [address], [place] [address] Jun, [facility] [address] [id number] [address] [place] [address], [place] [address] Jun, [facility] [address] [id number] [address] [place] [address], [place] [address] Jun, [facility] [address] [id number] [address] [place] [address], [place] [address] Jun, [facility] [address] [id number] [address] [place] [address], [place] [address] Jun, [facility] [address] [id number] [address] [place] [address], [place] [address] Jun, [facility] [address] [id number] [address] [place] [address], [place] [address] Jun, [facility] [address] [id number] [address] [place] [address], [place] [address] Jun, [facility] [address] [id number] [address] [place] [address], [place] [address] Jun, [facility] [address] [id number] [address] [place] [address], [place] [address] May, [facility] [address] [id number] [address] [place] [address], [place] [address] May, [facility] [address] [id number] [address] [place] [address], [place] [address] May, [facility] [address] [id number] [address] [place] [address], [place] [address] May, [facility] [address] [id number] [address] [place] [address], [place] [address] May, [facility] [address] [id number] [address] [place] [address], [place] [address] May, [facility] [address] [id number] [address] [place] [address], [place] [address] May, [facility] [address] [id number] [address] [place] [address], [place] [address] May, [facility] [address] [id number] [address] [place] [address], [place] [address] May, [facility] [address] [id number] [address] [place] [address], [place] [address] May, [facility] [address] [id number] [address] [place] [address], [place] [address] May, [facility] [address] [id number] [address] [place] [address], [place] [address] 18 May, 2014 [facility] [address] [id number] [address] [place] [address], [place] [address] 18 May, 2014 [facility] [address] [id number] [address] [place] [address], [place] [address] 17 May, 2014 [facility] [address] [id number] [address] [place] [address], [place] [address] 16 May, 2014 [facility] [address] [id number] [address] [place] [address], [place] [address] 16 May, 2014 [facility] [address] [id number] [address] [place] [address], [place] [address] 15 May, 2014 [facility] [address] [id number] [address] [place] [address], [place] [address] 15 May, 2014 [facility] [address] [id number] [address] [place] [address], [place] [address] May, [facility] [address] [id number] [address] [place] [address], [place] [address] May, [facility] [address] [id number] [address] [place] [address], [place] [address] May, [facility] [address] [id number] [address] [place] [address], [place] [address] May, [facility] [address] [id number] [address] [place] [address], [place] [address] May, [facility] [address] [id number] [address] [place] [address], [place] [address] May, [facility] [address] [id number] [address] [place] [address], [place] [address] May, [facility] [address] [id number] [address] [place] [address], [place] [address] May, [facility] [address] [id number] [address] [place] [address], [place] [address] May, [facility] [address] [id number] [address] [place] [address], [place] [address] May, [facility] [address] [id number] [address] [place] [address], [place] [address] May, [facility] [address] [id number] [address] [place] [address], [place] [address] May, [facility] [address] [id number] [address] [place] [address], [place] [address] May, [facility] [address] [id number] [address] [place] [address], [place] [address] May, [facility] [address] [id number] [address] [place] [address], [place] [address] May, [facility] [address] [id number] [address] [place] [address], [place] [address] May, [facility] [address] [id number] [address] [place] [address], [place] [address] Apr, [facility] [address] [id number] [address] [place] [address], [place] [address] Apr, [facility] [address] [id number] [address] [place] [address], [place] [address] Apr, [facility] [address] [id number] [address] [place] [address], [place] [address] Apr, [facility] [address] [id number] [address] [place] [address], [place] [address] Apr, [facility] [address] [id number] [address] [place] [address], [place] [address] Apr, [facility] [address] [id number] [address] [place] [address], [place] [address] Apr, [facility] [address] [id number] [address] [place] [address], [place] [address] Apr, [facility] [address] [id number] [address] [place] [address], [place] [address] Apr, [facility] [address] [id number] [address] [place] [address], [place] [address] Apr, [facility] [address] [id number] [address] [place] [address], [place] [address] Mar, [facility] [address] [id number] [address] [place] [address], [place] [address] Mar, [facility] [address] [id number] [address] [place] [address], [place] [address] Mar, [facility] [address] [id number] [address] [place] [address], [place] [address] 31 Mar, 2013 [facility] [address] [id number] [address] [place] [address], [place] [address] 30 Mar, 2013 [facility] [address] [id number] [address] [place] [address], [place] [address] 30 Mar, 2014 [facility] [address] [id number] [address] [place] [address], [place] [address] Mar, 2013 [facility] [address] [id number] [address] [place] [address], [place] [address] 17 Mar, 2013 [facility] [address] [id number] [address] [place] [address], [place] [address] 15 Mar, 2014 [facility] [address] [id number] [address] [place] [address] 15 Mar, 2014 [facility] [address] [id number] [address] [place] [address], [place] [address] 15 Mar, 2014 [facility] [address] [id number] [address] [place] [address] Mar, [facility] [address] [id number] [address] [place] [address], [place] [address] Mar, [facility] [address] [id number] [address] [place] [address] Mar, [facility] [address] [id number] [address] [place] [address] Mar, [facility] [address] [id number] [address] [place] [address] Mar, 2013 [facility] [address] [id number] [address] [place] [address], [place] [address] Mar, [facility] [address] [id number] [address] [place] [address] Mar, [facility] [address] [id number] [address] [place] [address] Mar, 2013 [facility] [address] [id number] [address] [place] [address], [place] [address] 02 Mar, 2013 [facility] [address] [id number] [address] [place] [address], [place] [address] 05 Sep, 2013 [facility] [address] [id number] [address] [place] [address], [place] [address] 05 Sep, 2013 [facility] [address] [id number] [address] [place] [address], [place] [address] 04 Sep, 2013 [facility] [address] [id number] [address] [place] [address], [place] [address] 04 Sep, 2013 [facility] [address] [id number] [address] [place] [address], [place] [address] 03 Feb, 2013 [facility] [address] [id number] [address] [place] [address], [place] [address] Feb, [address] [facility] [address] [id number] [address] [place] [address], [place] [address] Feb, [address] [facility] [address] [id number] [address] [place] [address], [place] [address] Feb, [address] [facility] [address] [id number] [address] [place] [address], [place] [address] Feb, [address] [facility] [address] [id number] [address] [place] [address], [place] [address] Feb, [address] [facility] [address] [id number] [address] [place] [address], [place] [address] Jan, [facility] [address] [id number] [address] [place] [address], [place] [address] Jan, [facility] [address] [id number] [address] [place] [address], [place] [address] Jan, [facility] [address] [id number] [address] [place] [address], [place] [address] Jan, [facility] [address] [id number] [address] [place] [address], [place] [address] Jan, [facility] [address] [id number] [address] [place] [address], [place] [address] Jan, [facility] [address] [id number] [address] [place] [address], [place] [address] Jan, [facility] [address] [id number] [address] [place] [address], [place] [address] Jan, [facility] [address] [id number] [address] [place] [address], [place] [address] Jan, [facility] [address] [id number] [address] [place] [address], [place] [address] Jan, [facility] [address] [id number] [address] [place] [address], [place] [address] Jan, [facility] [address] [id number] [address] [place] [address], [place] [address] Jan, [facility] [address] [id number] [address] [place] [address], [place] [address] Dec, [facility] [address] [id number] [address] [place] [address], [place] [address] Dec, [facility] [address] [id number] [address] [place] [address], [place] [address] Dec, [facility] [address] [id number] [address] [place] [address], [place] [address] Dec, [facility] [address] [id number] [address] [place] [address], [place] [address] Dec, [facility] [address] [id number] [address] [place] [address], [place] [address] Dec, [facility] [address] [id number] [address] [place] [address], [place] [address] Dec, [facility] [address] [id number] [address] [place] [address], [place] [address] Dec, [facility] [address] [id number] [address] [place] [address], [place] [address] Dec, [facility] [facility] [address] [id number] [address] [place] [address], [place] [address] Dec, [facility] [address] [id number] [address] [place] [address], [place] [address] Dec, [facility] [address] [id number] [address] [place] [address], [place] [address] Dec, [facility] [address] [id number] [address] [place] [address], [place] [address] Nov, [facility] [address] [id number] [address] [place] [address], [place] [address] Nov, [facility] [address] [id number] [address] [place] [address], [place] [address] Nov, [facility] [address] [id number] [address] [place] [address], [place] [address] Nov, [facility] [address] [id number] [address] [place] [address], [place] [address] Nov, [facility] [address] [id number] [address] [place] [address], [place] [address] Nov, [facility] [address] [id number] [address] [place] [address], [place] [address] Nov, [facility] [address] [id number] [address] [place] [address], [place] [address] Nov, [facility] [address] [id number] [address] [place] [address] Nov, [facility] [address] [id number] [address] [place] [address], [place] [address] Nov, [facility] [address] [id number] [address] [place] [address], [place] [address] Nov, [facility] [address] [id number] [address] [place] [address], [place] [address] Nov, [facility] [address] [id number] [address] [place] [address], [place] [address] Nov, [facility] [address] [id number] [address] [place] [address], [place] [address] Nov, [facility] [address] [id number] [address] [place] [address], [place] [address] October, [facility] [address] [id number] [address] [place] [address], [place] [address] October, [facility] [address] [id number] [address] [place] [address], [place] [address] October, [facility] [address] [id number] [address] [place] [address], [place] [address] October, [facility] [address] [id number] [address] [place] [address], [place] [address] October, [facility] [address] [id number] [address] [place] [address], [place] [address] October, [facility] [address] [id number] [address] [place] [address], [place] [address] October, [facility] [address] [id number] [address] [place] [address], [place] [address] October, [facility] [address] [id number] [address] [place] [address], [place] [address] October, [facility] [address] [id number] [address] [place] [address], [place] [address] October, [facility] [address] [id number] [address] [place] [address], [place] [address] October, [facility] [address] [id number] [address] [place] [address], [place] [address] October, [facility] [address] [id number] [address] [place] [address], [place] [address] Sep, [facility] [address] [id number] [address] [place] [address], [place] [address] Sep, [facility] [address] [id number] [facility] [place] [address] Sep, [facility] [address] [id number] [address] [place] [address], [place] [address] Sep, [facility] [address] [id number] [address] [place] [address], [place] [address] Sep, [facility] [address] [id number] [address] [place] [address], [place] [address] Sep, [facility] [address] [id number] [address] [place] [address], [place] [address] Aug, [facility] [address] [id number] [address] [place] [address], [place] [address] Aug, [facility] [address] [id number] [address] [place] [address], [place] [address] Aug, [facility] [address] [id number] [address] [place] [address], [place] [address] Aug, [facility] [address] [id number] [address] [place] [address], [place] [address] Aug, [facility] [address] [id number] [address] [place] [address], [place] [address] Aug, [facility] [address] [id number] [address] [place] [address], [place] [address] Jul, [facility] [address] [id number] [address] [place] [address], [place] [address] Jul, [facility] [address] [id number] [address] [place] [address], [place] [address] Jul, [facility] [address] [id number] [address] [place] [address], [place] [address] Jul, [facility] [address] [id number] [address] [place] [address], [place] [address] Jul, [facility] [address] [id number] [address] [place] [address], [place] [address] 13 Jul, [address] [facility] [address] [id number] [address] [place] [address], [place] [address] Jul, [facility] [address] [id number] [address] [place] [address], [place] [address] Jul, [facility] [address] [id number] [address] [place] [address], [place] [address] Jul, [facility] [address] [id number] [address] [place] [address], [place] [address] Jul, [facility] [address] [id number] [address] [place] [address], [place] [address] Jun, [facility] [address] [id number] [address] [place] [address], [place] [address] Jun, [facility] [address] [id number] [address] [place] [address], [place] [address] Jun, [facility] [address] [id number] [address] [place] [address], [place] [address] Jun, [facility] [address] [id number] [address] [place] [address], [place] [address] Jun, [facility] [address] [id number] [address] [place] [address], [place] [address] Jun, [facility] [address] [id number] [address] [place] [address], [place] [address] Jun, [facility] [address] [id number] [address] [place] [address], [place] [address] Jun, [facility] [address] [id number] [address] [place] [address], [place] [address] May, [facility] [address] [id number] [address] [place] [address], [place] [address] May, [facility] [address] [id number] [address] [place] [address] [address] May, [facility] [address] [id number] [address] [place] [address], [place] [address] May, [facility] [address] [id number] [address] [place] [address], [place] [address] May, [facility] [address] [id number] [address] [place] [address], [place] [address] May, [facility] [address] [id number] [address] [place] [address], [place] [address] May, [facility] [address] [id number] [address] [place] [address], [place] [address] May, [facility] [address] [id number] [address] [place] [address], [place] [address] Apr, [facility] [address] [id number] [address] [place] [address], [place] [address] Apr, [facility] [address] [id number] [address] [place] [address] Apr, [facility] [address] [id number] [address] [place] [address] Apr, [facility] [address] [id number] [address] [place] [address] Apr, [facility] [address] [id number] [address] [place] [address] Apr, [facility] [address] [id number] [address] [place] [address] Mar, [facility] [address] [id number] [address] [place] [address] Mar, [facility] [address] [id number] [address] [place] [address] Mar, [facility] [address] [id number] [address] [place] [address] Mar, [facility] [address] [id number] [address] [place] [address], [place] [address] Mar, [facility] [address] [id number] [address] [place] [address], [place] [address] Mar, [facility] [address] [id number] [address] [place] [address], [place] [address] Mar, [facility] [address] [id number] [address] [place] [address], [place] [address] 30 Feb, 2013 [facility] [address] [id number] [address] [place] [address], [place] [address] 30 Feb, 2013 [facility] [address] [id number] [address] [place] [address], [place] [address] 27 Feb, 2013 [facility] [address] [id number] [address] [place] [address], [place] [address] Feb, [facility] [address] [id number] [address] [place] [address], [place] [address] Feb, [facility] [address] [id number] [address] [place] [address], [place] [address] Feb, [facility] [address] [id number] [address] [place] [address], [place] [address] Jan, [facility] [address] [id number] [address] [place] [address], [place] [address] Jan, [facility] [address] [id number] [address] [place] [address], [place] [address] Jan, [facility] [address] [id number] [address] [place] [address], [place] [address] Jan, [facility] [address] [id number] [address] [place] [address], [place] [address] Jan, [facility] [address] [id number] [address] [place] [address], [place] [address] Jan, [facility] [address] [id number] [address] [place] [address], [place] [address] Jan, [facility] [address] [id number] [address] [place] [address], [place] [address] Jan, [facility] [address] [id number] [address] [place] [address], [place] [address] Jan, [facility] [address] [id number] [address] [place] [address], [place] [address] Dec, [facility] [address] [id number] [address] [place] [address], [place] [address] Dec, [facility] [address] [id number] [address] [place] [address], [place] [address] Dec, [facility] [address] [id number] [address] [place] [address], [place] [address] Dec, [facility] [address] [id number] [address] [place] [address], [place] [address] Dec, [facility] [address] [id number] [address] [place] [address], [place] [address] Dec, [facility] [address] [id number] [address] [place] [address], [place] [address] Dec, [facility] [address] [id number] [address] [place] [address], [place] [address] Dec, [facility] [address] [id number] [address] [place] [address], [place] [address] Dec, [facility] [address] [id number] [address] [place] [address], [place] [address] Dec, [facility] [address] [id number] [address] [place] [address], [place] [address] Dec, [facility] [address] [id number] [address] [place] [address], [place] [address] Dec, [facility] [address] [id number] [address] [place] [address], [place] [address] Dec, [facility] [address] [id number] [address] [place] [address], [place] [address] Nov, [facility] [address] [id number] [address] [place] [address], [place] [address] Nov, [facility] [address] [id number] [address] [place] [address], [place] [address] Nov, [facility] [address] [id number] [address] [place] [address], [place] [address] Nov, [facility] [address] [id number] [address] [place] [address], [place] [address] October, [facility] [address] [id number] [address] [place] [address], [place] [address] October, [facility] [address] [id number] [address] [place] [address], [place] [address] October, [facility] [address] [id number] [address] [place] [address], [place] [address] October, [facility] [address] [id number] [address] [place] [address], [place] [address] October, [facility] [address] [id number] [address] [place] [address], [place] [address] October, [facility] [address] [id number] [address] [place] [address], [place] [address] 30 Sep, 2012 [facility] [address] [id number] [address] [place] [address], [place] [address] 29 Sep, 2012 [facility] [address] [id number] [address] [place] [address], [place] [address] 27 Sep, 2012 [facility] [address] [id number] [address] [place] [address], [place] [address] 23 Sep, 2012 [facility] [address] [id number] [address] [place] [address], [place] [address] Sep, [facility] [address] [id number] [address] [place] [address], [place] [address] 16 Sep, 2012 [facility] [address] [id number] [facility] [address] 12 Sep, 2012 [facility] [address] [id number] [address] [place] [address], [place] [address] Sep, [facility] [address] [id number] [address] [place] [address], [place] [address] Sep, [facility] [address] [id number] [address] [place] [address], [place] [address] Sep, [facility] [address] [id number] [address] [place] [address], [place] [address] Sep, [facility] [address] [id number] [address] [place] [address], [place] [address] Aug, [facility] [address] [id number] [address] [place] [address], [place] [address] Aug, [facility] [address] [id number] [address] [place] [address], [place] [address] 25 Aug, 2012 [facility] [address] [id number] [address] [place] [address], [place] [address] 21 Aug, 2012 [facility] [address] [id number] [address] [place] [address], [place] [address] 19 Aug, 2012 [facility] [address] [id number] [address] [place] [address], [place] [address] 18 Aug, 2012 [facility] [address] [id number] [address] [place] [address], [place] [address] 17 Aug, 2012 [facility] [address] [id number] [address] [place] [address], [place] [address] 15 Aug, [address] [facility] [address] [id number] [address] [place] [address], [place] [address] 15 Aug, 2012 [facility] [address] [id number] [address] [place] [address], [place] [address] 11 Aug, 2012 [facility] [address] [id number] [address] [place] [address], [place] [address] Aug, [facility] [address] [id number] [address] [place] [address], [place] [address] Aug, [facility] [address] [id number] [address] [place] [address], [place] [address] Jul, [facility] [address] [id number] [address] [place] [address], [place] [address] Jul, [facility] [address] [id number] [address] [place] [address], [place] [address] Jul, [facility] [address] [id number] [address] [place] [address], [place] [address] Jul, [facility] [address] [id number] [address] [place] [address], [place] [address] Jul, [facility] [address] [id number] [address] [place] [address], [place] [address] Jul, [facility] [address] [id number] [address] [place] [address], [place] [address] Jul, [facility] [address] [id number] [address] [place] [address], [place] [address] Jul, [facility] [address] [id number] [address] [place] [address], [place] [address] Jul, [facility] [address] [id number] [address] [place] [address] Jul, [facility] [address] [id number] [address] [place] [address] May, [facility] [address] [id number] [place] [id number] May, [facility] [address] [id number] [address] [place] [address] May, [facility] [address] [id number] [address] [place] [address], [place] [address] 14 May, 2012 [facility] [address] [id number] [address] [place] [address], [place] [address] May, [facility] [address] [id number] [address] [place] [address], [place] [address] Apr, [facility] [address] [id number] [place] [id number] Apr, [facility] [address] [facility] [id number] [address] [place] [address], [place] [address] Apr, [facility] [address] [facility] [id number] [address] [place] [address], [place] [address] Mar, [facility] [address] [id number] [place] [id number] Mar, [facility] [address] [facility] [id number] [address] [place] [address], [place] [address] Mar, [facility] [place] [address] [id number] [place] [id number] Feb, [facility] [address] [facility] [id number] [address] [place] [address], [place] [address] Feb, [facility] [address] [facility] [id number] [address] [place] [address], [place] [address] Feb, [facility] [address] [id number] [place] [id number] Feb, [facility] [address] [id number] [place] [id number] Feb, [facility] [address] [id number] [place] [id number] Jan, [facility] [address] [id number] [address] [place] [address], [place] [address] Jan, [facility] [address] [id number] [place] [id number] Jan, [facility] [address] [id number] [place] [id number] Jan, [facility] [address] [id number] [place] [id number] Jan, [facility] [address] [id number] [address] [place] [address], [place] [address] Jan, [facility] [address] [facility] [id number] [address] [place] [address], [place] [address] Jan, [facility] [address] [facility] [id number] [address] [place] [address], [place] [address] Aug, [facility] [place] [address] [facility] [id number] [place] [id number] Aug, [facility] [address] [facility] [id number] [address] [place] [address], [place] [address] Jul, [facility] [address] [facility] [id number] [address] [place] [address], [place] [address] Jul, [facility] [address] [facility] [id number] [address] [place] [address], [place] [address] Jul, [facility] [place] [address] [facility] [id number] [place] [id number] Jul, [facility] [address] [facility] [id number] [address] [place] [address], [place] [address] Jul, [facility] [place] [address] [facility] [id number] [place] [id number] Jul, [facility] [address] [facility] [id number] [address] [place] [address], [place] [address] Jul, [facility] [address] [id number] [place] [id number] Jul, [facility] [address] [id number] [place] [id number] Jul, [facility] [address] [id number] [place] [id number] Jul, [facility] [address] [facility] [id number] [address] [place] [address], [place] [address] May, [facility] [address] [facility] [id number] [address] [place] [address], [place] [address] May, [facility] [address] [id number] [address] [place] [address] May, [facility] [address] [id number] [address] [place] [address] Apr, [facility] [address] [id number] [address] [place] [address] Jan, [facility] [address] [id number] [address] [place] [address] Jan, [facility] [address] [id number] [address] [place] [address] Dec, [facility] [address] [id number] [address] [place] [address] Dec, [facility] [address] [id number] [address] [place] [id number] 16 May, 2009 [facility] [address] [id number] [address] [place] [address] Mar, [facility] [address] [id number] [address] [place] [address] Mar, [facility] [address] [id number] [address] [place] [address] Jan, IMMUNIZATIONS No Known Immunizations SOCIAL HISTORY Never Assessed REASON FOR VISIT [facility] [place] PLAN OF CARE VITAL SIGNS MEDICATIONS Unknown [...]
--- OUTSIDE RECORDS SUMMARY | 2020-01-28 13:01 | XMS REPORT ---
Author Author Heydi Candelario Doctor Organization [facility] Address Unknown Phone Unavailable Care Team Providers Care Contract Attorney Name Role Phone Migration, Doctor Unavailable Unavailable PROBLEMS Type Condition ICD9-CM Code FQN68-RU Code Onset Dates Condition S tatus SNOMED Code Problem Chronic pain syndrome G89.4 Active 637510903 Problem Sore throat J02.9 Active 01530920 3 Problem Choriocarcinoma C58 Active 1881 90711 Problem penitentiary current use of anticoagulant Z79.01 Active 698909068 Problem History of venous thromboembolism V12.51 Active 958224270 Problem Cellulitis of unspecified part of limb L03.119 Active 811930394 Problem Gastroesophageal reflux disease without esophagitis K21.9 Active 868007893 Problem History of pulmonary embolism Z86.711 Active 268101519 Problem Pseudotumor cerebri G93.2 Active 58903226 Problem History of DVT (deep vein thrombosis) Z86.718 Active 657788411 ALLERGIES No Information ENCOUNTERS Encounter Location Date Diagnosis [place] [address] [address] [facility] [id number] [address] [place] [address] Apr, 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 [place] [address] [facility] [id number] [address] [place] [address] Apr, 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.01 [place] [address] N [facility] [id number] [address] [place] [address] Apr, Cellulitis of unspecified pa rt of limb L03.119 ; Allergic contact dermatitis due to adhesives L23.1 and Chronic pain syndrome G89.4 [facility] [address] [facility] [id number] [address] [place] [address] Apr, [place] [address] [address] [facility] [id number] [address] [place] [address] Apr, penitentiary 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.01 ; Cellulitis of unspecified part of limb L03.119 ; Chronic pain syndrome G89.4 and Anxiety F41.9 [place] [address] [address] [place] [id number] [address] [place] [address] 16 Apr, 2015 [place] [address] [address] [place] [id number] [place] [address] Apr, [place] [address] [address] Mar, [place] [address] [address] [place] [id number] [place] [address] Mar, [place] [address] [address] Mar, Sore throat J02.9 ; Gastroes ophageal reflux disease without esophagitis K21.9 ; Pseudotumor cerebri G93.2 ; Chronic pain syndrome G89.4 ; Choriocarcinoma C58 ; History of pulmonary embolism Z86.711 ; History of DVT (deep vein thrombosis) Z86.718 ; Anxiety F41.9 and Tachycardia R00.0 [place] [address] [address] Feb, Anxiety 300.00 and Chronic p ain 338.29 [place] [address] [address] [place] [id number] [address] [place] [address] Feb, [place] [address] [id number] [place] [address] Feb, [place] [address] [address] [place] [id number] [place] [address] Jan, penitentiary current use of ant icoagulant therapy V58.61 and Dysuria 788.1 [place] [address] [address] [place] [id number] [address] [place] [address] Jan, Dysuria 788.1 [place] [address] [address] [place] [id number] [place] [address] Jan, Anxiety 300.00 and Chronic p ain 338.29 [place] [address] [address] Jan, [facility] [address] [address] Jan, [place] [address] [address] Jan, [place] [address] [address] Dec, Weakness 780.79 [place] [address] [address] Dec, 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 V58.61 [place] [address] [address] Dec, Palpitations 785.1 ; Tremor 781.0 ; Weakness 780.79 ; penitentiary current use of anticoagulant therapy V58.61 and Yeast vaginitis 112.1 [place] [address] [address] Dec, [place] [address] [address] Dec, Cervicalgia 723.1 ; Tachycar yoseph 785.0 ; Pseudotumor cerebri 348.2 and History of venous thromboembolism V12.51 [place] [address] [address] [place] [id number] [address] [place] [address] Nov, [place] [address] [address] Nov, [place] [address] [address] Nov, Tachycardia 785.0 ; Pseudotu mor cerebri 348.2 ; Anxiety 300.00 and History of venous thromboembolism V12.51 [facility] [address] [id number] [address] [place] [address], [place] [address] Nov, [facility] [address] [id number] [address] [place] [address], [place] [address] 18 Nov, 2014 [facility] [address] [id number] [address] [place] [address], [place] [address] 16 Nov, 2014 [facility] [address] [id number] [address] [place] [address], [place] [address] Nov, [facility] [address] [id number] [address] [place] [address], [place] [address] Nov, [facility] [address] [id number] [address] [place] [address], [place] [address] Nov, [facility] [address] [id number] [address] [place] [address], [place] [address] Nov, [facility] [address] [id number] [address] [place] [address] October, [facility] [address] [id number] [address] [place] [address] October, [facility] [address] [id number] [address] [place] [address] October, Pain in thoracic spine 724.1 and Tachycardia 785.0 [facility] [address] [id number] [address] [place] [address] October, [facility] [address] [id number] [address] [place] [address] October, [facility] [address] [id number] [address] [place] [address] Sep, [facility] [address] [id number] [address] [place] [address] Sep, [facility] [address] [id number] [address] [place] [address] Aug, [facility] [address] [id number] [address] [place] [address], [place] [address] Aug, [facility] [address] [id number] [address] [place] [address], [place] [address] Aug, [facility] [address] [id number] [address] [place] [address], [place] [address] 17 Aug, 2014 [facility] [address] [id number] [address] [place] [address], [place] [address] Aug, [facility] [address] [id number] [address] [place] [address], [place] [address] 16 Aug, 2014 [facility] [address] [id number] [address] [place] [address], [place] [address] Aug, [facility] [address] [id number] [address] [place] [address], [place] [address] Aug, [facility] [address] [id number] [address] [place] [address], [place] [address] Aug, 2014 [facility] [address] [id number] [address] [place] [address], [place] [address] Aug, [facility] [address] [id number] [address] [place] [address], [place] [address] Aug, [facility] [address] [id number] [address] [place] [address], [place] [address] Aug, [facility] [address] [id number] [address] [place] [address], [place] [address] Jul, 2014 [facility] [address] [id number] [address] [place] [address], [place] [address] Jul, 2014 [facility] [address] [id number] [address] [place] [address], [place] [address] Jul, 2014 [facility] [address] [id number] [address] [place] [address], [place] [address] Jul, 2014 [facility] [address] [id number] [address] [place] [address], [place] [address] b, 2014 [facility] [address] [id number] [address] [place] [address], [place] [address] 23 Jul, 2014 [facility] [address] [id number] [address] [place] [address], [place] [address] 23 Jul, 2014 [facility] [address] [id number] [address] [place] [address], [place] [address] 23 Jul, 2014 [facility] [address] [id number] [address] [place] [address], [place] [address] 20 Jul, 2014 [facility] [address] [id number] [address] [place] [address], [place] [address] 20 Jul, 2014 [facility] [address] [id number] [address] [place] [address], [place] [address] 19 Jul, 2014 [facility] [address] [id number] [address] [place] [address], [place] [address] 19 Jul, 2014 [facility] [address] [id number] [address] [place] [address], [place] [address] 17 Jul, 2014 [facility] [address] [id number] [address] [place] [address], [place] [address] 17 Jul, 2014 [facility] [address] [id number] [address] [place] [address], [place] [address] 16 Jul, 2014 [facility] [address] [id number] [address] [place] [address], [place] [address] 16 Jul, 2014 [facility] [address] [id number] [address] [place] [address], [place] [address] 16 Jul, 2014 [facility] [address] [id number] [address] [place] [address], [place] [address] 16 Jul, 2014 [facility] [address] [id number] [address] [place] [address], [place] [address] 13 Jul, 2014 [facility] [address] [id number] [address] [place] [address], [place] [address] Jul, 2014 [facility] [address] [id number] [address] [place] [address], [place] [address] Jul, 2014 [facility] [address] [id number] [address] [place] [address], [place] [address] Jul, 2014 [facility] [address] [id number] [address] [place] [address], [place] [address] Jul, 2014 [facility] [address] [id number] [address] [place] [address], [place] [address] Jul, 2014 [facility] [address] [id number] [address] [place] [address], [place] [address] Jul, [facility] [address] [id number] [address] [place] [address], [place] [address] Jul, [facility] [address] [id number] [address] [place] [address], [place] [address] Jul, [facility] [address] [id number] [address] [place] [address], [place] [address] Jul, [facility] [address] [id number] [address] [place] [address], [place] [address] Jul, [facility] [address] [id number] [address] [place] [address], [place] [address] Jul, [facility] [address] [id number] [address] [place] [address], [place] [address] Jun, [facility] [address] [id number] [address] [place] [address], [place] [address] Jun, [facility] [address] [id number] [address] [place] [address], [place] [address] Jun, [facility] [address] [id number] [address] [place] [address], [place] [address] Jun, [facility] [address] [id number] [address] [place] [address], [place] [address] Jun, [facility] [address] [id number] [address] [place] [address], [place] [address] Jun, [facility] [address] [id number] [address] [place] [address], [place] [address] Jun, [facility] [address] [id number] [address] [place] [address], [place] [address] Jun, [facility] [address] [id number] [address] [place] [address], [place] [address] Jun, [facility] [address] [id number] [address] [place] [address], [place] [address] Jun, [facility] [address] [id number] [address] [place] [address], [place] [address] Jun, [facility] [address] [id number] [address] [place] [address], [place] [address] Jun, [facility] [address] [id number] [address] [place] [address], [place] [address] Jun, [facility] [address] [id number] [address] [place] [address], [place] [address] Jun, [facility] [address] [id number] [address] [place] [address], [place] [address] Jun, [facility] [address] [id number] [address] [place] [address], [place] [address] Jun, [facility] [address] [id number] [address] [place] [address], [place] [address] Jun, [facility] [address] [id number] [address] [place] [address], [place] [address] Jun, [facility] [address] [id number] [address] [place] [address], [place] [address] Jun, [facility] [address] [id number] [address] [place] [address], [place] [address] Jun, [facility] [address] [id number] [address] [place] [address], [place] [address] May, [facility] [address] [id number] [address] [place] [address], [place] [address] May, [facility] [address] [id number] [address] [place] [address], [place] [address] May, [facility] [address] [id number] [address] [place] [address], [place] [address] May, [facility] [address] [id number] [address] [place] [address], [place] [address] May, [facility] [address] [id number] [address] [place] [address], [place] [address] May, [facility] [address] [id number] [address] [place] [address], [place] [address] May, [facility] [address] [id number] [address] [place] [address], [place] [address] May, [facility] [address] [id number] [address] [place] [address], [place] [address] May, [facility] [address] [id number] [address] [place] [address], [place] [address] May, [facility] [address] [id number] [address] [place] [address], [place] [address] May, [facility] [address] [id number] [address] [place] [address], [place] [address] 18 May, 2014 [facility] [address] [id number] [address] [place] [address], [place] [address] 18 May, 2014 [facility] [address] [id number] [address] [place] [address], [place] [address] 17 May, 2014 [facility] [address] [id number] [address] [place] [address], [place] [address] 16 May, 2014 [facility] [address] [id number] [address] [place] [address], [place] [address] 16 May, 2014 [facility] [address] [id number] [address] [place] [address], [place] [address] 15 May, 2014 [facility] [address] [id number] [address] [place] [address], [place] [address] 15 May, 2014 [facility] [address] [id number] [address] [place] [address], [place] [address] May, [facility] [address] [id number] [address] [place] [address], [place] [address] May, [facility] [address] [id number] [address] [place] [address], [place] [address] May, [facility] [address] [id number] [address] [place] [address], [place] [address] May, [facility] [address] [id number] [address] [place] [address], [place] [address] May, [facility] [address] [id number] [address] [place] [address], [place] [address] May, [facility] [address] [id number] [address] [place] [address], [place] [address] May, [facility] [address] [id number] [address] [place] [address], [place] [address] May, [facility] [address] [id number] [address] [place] [address], [place] [address] May, [facility] [address] [id number] [address] [place] [address], [place] [address] May, [facility] [address] [id number] [address] [place] [address], [place] [address] May, [facility] [address] [id number] [address] [place] [address], [place] [address] May, [facility] [address] [id number] [address] [place] [address], [place] [address] May, [facility] [address] [id number] [address] [place] [address], [place] [address] May, [facility] [address] [id number] [address] [place] [address], [place] [address] May, [facility] [address] [id number] [address] [place] [address], [place] [address] May, [facility] [address] [id number] [address] [place] [address], [place] [address] Apr, [facility] [address] [id number] [address] [place] [address], [place] [address] Apr, [facility] [address] [id number] [address] [place] [address], [place] [address] Apr, [facility] [address] [id number] [address] [place] [address], [place] [address] Apr, [facility] [address] [id number] [address] [place] [address], [place] [address] Apr, [facility] [address] [id number] [address] [place] [address], [place] [address] Apr, [facility] [address] [id number] [address] [place] [address], [place] [address] Apr, [facility] [address] [id number] [address] [place] [address], [place] [address] Apr, [facility] [address] [id number] [address] [place] [address], [place] [address] Apr, [facility] [address] [id number] [address] [place] [address], [place] [address] Apr, [facility] [address] [id number] [address] [place] [address], [place] [address] Mar, [facility] [address] [id number] [address] [place] [address], [place] [address] Mar, [facility] [address] [id number] [address] [place] [address], [place] [address] Mar, [facility] [address] [id number] [address] [place] [address], [place] [address] 31 Mar, 2013 [facility] [address] [id number] [address] [place] [address], [place] [address] 30 Mar, 2013 [facility] [address] [id number] [address] [place] [address], [place] [address] 30 Mar, 2014 [facility] [address] [id number] [address] [place] [address], [place] [address] Mar, 2013 [facility] [address] [id number] [address] [place] [address], [place] [address] 17 Mar, 2013 [facility] [address] [id number] [address] [place] [address], [place] [address] 15 Mar, 2014 [facility] [address] [id number] [address] [place] [address] 15 Mar, 2014 [facility] [address] [id number] [address] [place] [address], [place] [address] 15 Mar, 2014 [facility] [address] [id number] [address] [place] [address] Mar, [facility] [address] [id number] [address] [place] [address], [place] [address] Mar, [facility] [address] [id number] [address] [place] [id number] Mar, [facility] [address] [id number] [address] [place] [id number] Mar, [facility] [address] [id number] [address] [place] [id number] Mar, 2013 [facility] [address] [id number] [address] [place] [address], [place] [address] Mar, [facility] [address] [id number] [address] [place] [id number] Mar, [facility] [address] [id number] [address] [place] [id number] Mar, 2013 [facility] [address] [id number] [address] [place] [address], [place] [address] 02 Mar, 2013 [facility] [address] [id number] [address] [place] [address], [place] [address] 05 Sep, 2013 [facility] [address] [id number] [address] [place] [address], [place] [address] 05 Sep, 2013 [facility] [address] [id number] [address] [place] [address], [place] [address] 04 Sep, 2013 [facility] [address] [id number] [address] [place] [address], [place] [address] 04 Sep, 2013 [facility] [address] [id number] [address] [place] [address], [place] [address] 03 Feb, 2013 [facility] [address] [id number] [address] [place] [address], [place] [address] Feb, 2013 [facility] [address] [id number] [address] [place] [address], [place] [address] Feb, 2013 [facility] [address] [id number] [address] [place] [address], [place] [address] Feb, 2013 [facility] [address] [id number] [address] [place] [address], [place] [address] Feb, 2013 [facility] [address] [id number] [address] [place] [address], [place] [id number] Feb, 2013 [facility] [address] [id number] [address] [place] [address], [place] [address] Jan, [facility] [address] [id number] [address] [place] [address], [place] [address] Jan, [facility] [address] [id number] [address] [place] [address], [place] [address] Jan, [facility] [address] [id number] [address] [place] [address], [place] [address] Jan, [facility] [address] [id number] [address] [place] [address], [place] [address] Jan, [facility] [address] [id number] [address] [place] [address], [place] [address] Jan, [facility] [address] [id number] [address] [place] [address], [place] [address] Jan, [facility] [address] [id number] [address] [place] [address], [place] [address] Jan, [facility] [address] [id number] [address] [place] [address], [place] [address] Jan, [facility] [address] [id number] [address] [place] [address], [place] [address] Jan, [facility] [address] [id number] [address] [place] [address], [place] [address] Jan, [facility] [address] [id number] [address] [place] [address], [place] [address] Jan, [facility] [address] [id number] [address] [place] [address], [place] [address] Dec, [facility] [address] [id number] [address] [place] [address], [place] [address] Dec, [facility] [address] [id number] [address] [place] [address], [place] [address] Dec, [facility] [address] [id number] [address] [place] [address], [place] [address] Dec, [facility] [address] [id number] [address] [place] [address], [place] [address] Dec, [facility] [address] [id number] [address] [place] [address], [place] [address] Dec, [facility] [address] [id number] [address] [place] [address], [place] [address] Dec, [facility] [address] [id number] [address] [place] [address], [place] [address] Dec, [facility] [address] [id number] [address] [place] [address], [place] [address] Dec, [facility] [address] [id number] [address] [place] [address], [place] [address] Dec, [facility] [address] [id number] [address] [place] [address], [place] [address] Dec, [facility] [address] [id number] [address] [place] [address], [place] [address] Dec, [facility] [address] [id number] [address] [place] [address], [place] [address] Nov, [facility] [address] [id number] [address] [place] [address], [place] [address] Nov, [facility] [address] [id number] [address] [place] [address], [place] [address] Nov, [facility] [address] [id number] [address] [place] [address], [place] [address] Nov, [facility] [address] [id number] [address] [place] [address], [place] [address] Nov, [facility] [address] [id number] [address] [place] [address], [place] [address] Nov, [facility] [address] [id number] [address] [place] [address], [place] [address] Nov, [facility] [address] [id number] [address] [place] [address], [place] [address] Nov, [facility] [address] [id number] [address] [place] [address] Nov, [facility] [address] [id number] [address] [place] [address], [place] [address] Nov, [facility] [address] [id number] [address] [place] [address], [place] [address] Nov, [facility] [address] [id number] [address] [place] [address], [place] [address] Nov, [facility] [address] [id number] [address] [place] [address], [place] [address] Nov, [facility] [address] [id number] [address] [place] [address], [place] [address] Nov, [facility] [address] [id number] [address] [place] [address], [place] [address] October, [facility] [address] [id number] [address] [place] [address], [place] [address] October, [facility] [address] [id number] [address] [place] [address], [place] [address] October, [facility] [address] [id number] [address] [place] [address], [place] [address] October, [facility] [address] [id number] [address] [place] [address], [place] [address] October, [facility] [address] [id number] [address] [place] [address], [place] [address] October, [facility] [address] [id number] [address] [place] [address], [place] [address] October, [facility] [address] [id number] [address] [place] [address], [place] [address] October, [facility] [address] [id number] [address] [place] [address], [place] [address] October, [facility] [address] [id number] [address] [place] [address], [place] [address] October, [facility] [address] [id number] [address] [place] [address], [place] [address] October, [facility] [address] [id number] [address] [place] [address], [place] [address] October, [facility] [address] [id number] [address] [place] [address], [place] [address] Sep, [facility] [address] [id number] [address] [place] [address], [place] [address] Sep, [facility] [address] [id number] [facility] [place] [address] Sep, [facility] [address] [id number] [address] [place] [address], [place] [address] Sep, [facility] [address] [id number] [address] [place] [address], [place] [address] Sep, [facility] [address] [id number] [address] [place] [address], [place] [address] Sep, [facility] [address] [id number] [address] [place] [address], [place] [address] Aug, [facility] [address] [id number] [address] [place] [address], [place] [address] Aug, [facility] [address] [id number] [address] [place] [address], [place] [address] Aug, [facility] [address] [id number] [address] [place] [address], [place] [address] Aug, [facility] [address] [id number] [address] [place] [address], [place] [address] Aug, [facility] [address] [id number] [address] [place] [address], [place] [address] Aug, [facility] [address] [id number] [address] [place] [address], [place] [address] Jul, [facility] [address] [id number] [address] [place] [address], [place] [address] Jul, [facility] [address] [id number] [address] [place] [address], [place] [address] Jul, [facility] [address] [id number] [address] [place] [address], [place] [address] Jul, [facility] [address] [id number] [address] [place] [address], [place] [address] Jul, [facility] [address] [id number] [address] [place] [address], [place] [address] 13 Jul, 2013 [facility] [address] [id number] [address] [place] [address], [place] [address] Jul, [facility] [address] [id number] [address] [place] [address], [place] [address] Jul, [facility] [address] [id number] [address] [place] [address], [place] [address] Jul, [facility] [address] [id number] [address] [place] [address], [place] [address] Jul, [facility] [address] [id number] [address] [place] [address], [place] [address] Jun, [facility] [address] [id number] [address] [place] [address], [place] [address] Jun, [facility] [address] [id number] [address] [place] [address], [place] [address] Jun, [facility] [address] [id number] [address] [place] [address], [place] [address] Jun, [facility] [address] [id number] [address] [place] [address], [place] [address] Jun, [facility] [address] [id number] [address] [place] [address], [place] [address] Jun, [facility] [address] [id number] [address] [place] [address], [place] [address] Jun, [facility] [address] [id number] [address] [place] [address], [place] [address] Jun, [facility] [address] [id number] [address] [place] [address], [place] [address] May, [facility] [address] [id number] [address] [place] [address], [place] [address] May, [facility] [address] [id number] [address] [place] [address] [address] May, [facility] [address] [id number] [address] [place] [address], [place] [address] May, [facility] [address] [id number] [address] [place] [address], [place] [address] May, [facility] [address] [id number] [address] [place] [address], [place] [address] May, [facility] [address] [id number] [address] [place] [address], [place] [address] May, [facility] [address] [id number] [address] [place] [address], [place] [address] May, [facility] [address] [id number] [address] [place] [address], [place] [address] Apr, [facility] [address] [id number] [address] [place] [address], [place] [address] Apr, [facility] [address] [id number] [address] [place] [address] Apr, [facility] [address] [id number] [address] [place] [address] Apr, [facility] [address] [id number] [address] [place] [address] Apr, [facility] [address] [id number] [address] [place] [address] Apr, [facility] [address] [id number] [address] [place] [address] Mar, [facility] [address] [id number] [address] [place] [address] Mar, [facility] [address] [id number] [address] [place] [address] Mar, [facility] [address] [id number] [address] [place] [address] Mar, [facility] [address] [id number] [address] [place] [address], [place] [address] Mar, [facility] [address] [id number] [address] [place] [address], [place] [address] Mar, [facility] [address] [id number] [address] [place] [address], [place] [address] Mar, [facility] [address] [id number] [address] [place] [address], [place] [address] 30 Feb, 2013 [facility] [address] [id number] [address] [place] [address], [place] [address] 30 Feb, 2013 [facility] [address] [id number] [address] [place] [address], [place] [address] 27 Feb, 2013 [facility] [address] [id number] [address] [place] [address], [place] [address] Feb, [facility] [address] [id number] [address] [place] [address], [place] [address] Feb, [facility] [address] [id number] [address] [place] [address], [place] [address] Feb, [facility] [address] [id number] [address] [place] [address], [place] [address] Jan, [facility] [address] [id number] [address] [place] [address], [place] [address] Jan, [facility] [address] [id number] [address] [place] [address], [place] [address] Jan, [facility] [address] [id number] [address] [place] [address], [place] [address] Jan, [facility] [address] [id number] [address] [place] [address], [place] [address] Jan, [facility] [address] [id number] [address] [place] [address], [place] [address] Jan, [facility] [address] [id number] [address] [place] [address], [place] [address] Jan, [facility] [address] [id number] [address] [place] [address], [place] [address] Jan, [facility] [address] [id number] [address] [place] [address], [place] [address] Jan, [facility] [address] [id number] [address] [place] [address], [place] [address] Dec, [facility] [address] [id number] [address] [place] [address], [place] [address] Dec, [facility] [address] [id number] [address] [place] [address], [place] [address] Dec, [facility] [address] [id number] [address] [place] [address], [place] [address] Dec, [facility] [address] [id number] [address] [place] [address], [place] [address] Dec, [facility] [address] [id number] [address] [place] [address], [place] [address] Dec, [facility] [address] [id number] [address] [place] [address], [place] [address] Dec, [facility] [address] [id number] [address] [place] [address], [place] [address] Dec, [facility] [address] [id number] [address] [place] [address], [place] [address] Dec, [facility] [address] [id number] [address] [place] [address], [place] [address] Dec, [facility] [address] [id number] [address] [place] [address], [place] [address] Dec, [facility] [address] [id number] [address] [place] [address], [place] [address] Dec, [facility] [address] [id number] [address] [place] [address], [place] [address] Dec, [facility] [address] [id number] [address] [place] [address], [place] [address] Nov, [facility] [address] [id number] [address] [place] [address], [place] [address] Nov, [facility] [address] [id number] [address] [place] [address], [place] [address] Nov, [facility] [address] [id number] [address] [place] [address], [place] [address] Nov, [facility] [address] [id number] [address] [place] [address], [place] [address] October, [facility] [address] [id number] [address] [place] [address], [place] [address] October, [facility] [address] [id number] [address] [place] [address], [place] [address] October, [facility] [address] [id number] [address] [place] [address], [place] [address] October, [facility] [address] [id number] [address] [place] [address], [place] [address] October, [facility] [address] [id number] [address] [place] [address], [place] [address] October, [facility] [address] [id number] [address] [place] [address], [place] [address] 30 Sep, 2012 [facility] [address] [id number] [address] [place] [address], [place] [address] 29 Sep, 2012 [facility] [address] [id number] [address] [place] [address], [place] [address] 27 Sep, 2012 [facility] [address] [id number] [address] [place] [address], [place] [address] 23 Sep, 2012 [facility] [address] [id number] [address] [place] [address], [place] [address] Sep, [facility] [address] [id number] [address] [place] [address], [place] [address] 16 Sep, 2012 [facility] [address] [id number] [facility] [place] [address] 12 Sep, 2012 [facility] [address] [id number] [address] [place] [address], [place] [address] Sep, [facility] [address] [id number] [address] [place] [address], [place] [address] Sep, [facility] [address] [id number] [address] [place] [address], [place] [address] Sep, [facility] [address] [id number] [address] [place] [address], [place] [address] Sep, [facility] [address] [id number] [address] [place] [address], [place] [address] Aug, [facility] [address] [id number] [address] [place] [address], [place] [address] Aug, [facility] [address] [id number] [address] [place] [address], [place] [address] 25 Aug, 2012 [facility] [address] [id number] [address] [place] [address], [place] [address] 21 Aug, 2012 [facility] [address] [id number] [address] [place] [address], [place] [address] 19 Aug, 2012 [facility] [address] [id number] [address] [place] [address], [place] [address] 18 Aug, 2012 [facility] [address] [id number] [address] [place] [address], [place] [address] 17 Aug, 2012 [facility] [address] [id number] [address] [place] [address], [place] [address] 15 Aug, 2012 [facility] [address] [id number] [address] [place] [address], [place] [address] 15 Aug, 2012 [facility] [address] [id number] [address] [place] [address], [place] [address] 11 Aug, 2012 [facility] [address] [id number] [address] [place] [address], [place] [address] Aug, [facility] [address] [id number] [address] [place] [address], [place] [address] Aug, [facility] [address] [id number] [address] [place] [address], [place] [address] Jul, [facility] [address] [id number] [address] [place] [address], [place] [address] Jul, [facility] [address] [id number] [address] [place] [address], [place] [address] Jul, [facility] [address] [id number] [address] [place] [address], [place] [address] Jul, [facility] [address] [id number] [address] [place] [address], [place] [address] Jul, [facility] [address] [id number] [address] [place] [address], [place] [address] Jul, [facility] [address] [id number] [address] [place] [address], [place] [address] Jul, [facility] [address] [id number] [address] [place] [address], [place] [address] Jul, [facility] [address] [id number] [address] [place] [address], [place] [address] Jul, [facility] [address] [id number] [address] [place] [address] Jul, [facility] [address] [id number] [address] [place] [address] May, [facility] [address] [id number] [place] [id number] May, [facility] [address] [id number] [address] [place] [address] May, [facility] [address] [id number] [address] [place] [address], [place] [address] 14 May, 2012 [facility] [address] [id number] [address] [place] [address], [place] [address] May, [facility] [address] [id number] [address] [place] [address], [place] [address] Apr, [facility] [address] [id number] [place] [id number] Apr, [facility] [address] [facility] [id number] [address] [place] [address], [place] [address] Apr, [facility] [address] [facility] [id number] [address] [place] [address], [place] [address] Mar, [facility] [address] [id number] [place] [id number] Mar, [facility] [address] [facility] [id number] [address] [place] [address], [place] [address] Mar, [facility] [address] [id number] [place] [id number] Feb, [facility] [address] [facility] [id number] [address] [place] [address], [place] [address] Feb, [facility] [address] [facility] [id number] [address] [place] [address], [place] [address] Feb, [facility] [address] [id number] [place] [id number] Feb, [facility] [address] [id number] [place] [id number] Feb, [facility] [address] [id number] [place] [id number] Jan, [facility] [address] [id number] [address] [place] [address], [place] [address] Jan, [facility] [address] [id number] [place] [id number] Jan, [facility] [address] [id number] [place] [id number] Jan, [facility] [address] [id number] [place] [id number] Jan, [facility] [address] [id number] [address] [place] [address], [place] [address] Jan, [facility] [address] [facility] [id number] [address] [place] [address], [place] [address] Jan, [facility] [address] [facility] [id number] [address] [place] [address], [place] [address] Aug, [facility] [address] [facility] [id number] [place] [id number] Aug, [facility] [address] [facility] [id number] [address] [place] [address], [place] [address] Jul, [facility] [address] [facility] [id number] [address] [place] [address], [place] [address] Jul, [facility] [address] [facility] [id number] [address] [place] [address], [place] [address] Jul, [facility] [address] [facility] [id number] [place] [id number] Jul, [facility] [address] [facility] [id number] [address] [place] [address], [place] [address] Jul, [facility] [address] [facility] [id number] [place] [id number] Jul, [facility] [address] [facility] [id number] [address] [place] [address], [place] [address] Jul, [facility] [address] [id number] [place] [id number] Jul, [facility] [address] [id number] [place] [id number] Jul, [facility] [address] [id number] [place] [id number] Jul, [facility] [address] [facility] [id number] [address] [place] [address], [place] [address] May, [facility] [address] [facility] [id number] [address] [place] [address], [place] [address] May, [facility] [address] [id number] [address] [place] [id number] May, [facility] [address] [id number] [address] [place] [id number] Apr, [facility] [address] [id number] [address] [place] [id number] Jan, [facility] [address] [id number] [address] [place] [id number] Jan, [facility] [address] [id number] [address] [place] [id number] Dec, [facility] [address] [id number] [address] [place] [id number] Dec, [facility] [address] [id number] [address] [place] [id number] 16 May, 2009 [facility] [address] [id number] [address] [place] [id number] Mar, [facility] [address] [id number] [address] [place] [id number] Mar, [facility] [address] [id number] [address] [place] [id number] Jan, IMMUNIZATIONS No Known Immunizations SOCIAL HISTORY Never Assessed REASON FOR VISIT [facility] [place] [facility] [place] C[place] VITAL SIGNS MEDICATIONS Unknown [...]
--- OUTSIDE RECORDS SUMMARY | 2020-01-28 13:01 | XMS REPORT ---
Author Author Heydi Candelario Doctor Organization [facility] Address Unknown Phone Unavailable Care Team Providers Care Radiology Therapist Name Role Phone Migration, Doctor Unavailable Unavailable PROBLEMS Type Condition ICD9-CM Code [id number] Code Onset Dates Condition S tatus SNOMED Code Problem Chronic pain syndrome G89.4 Active 839512767 Problem Sore throat J02.9 Active 01117473 3 Problem Choriocarcinoma C58 Active 1881 83865 Problem skilled nursing current use of anticoagulant Z79.01 Active 258449911 Problem History of venous thromboembolism V12.51 Active 698154170 Problem Cellulitis of unspecified part of limb L03.119 Active 750317596 Problem Gastroesophageal reflux disease without esophagitis K21.9 Active 870728077 Problem History of pulmonary embolism Z86.711 Active 313249885 Problem Pseudotumor cerebri G93.2 Active 73493305 Problem History of DVT (deep vein thrombosis) Z86.718 Active 356981436 ALLERGIES No Information ENCOUNTERS Encounter Location Date Diagnosis [place] [address] 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 [id number] [address] [place] [address] Apr, manager long term care 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.01 [place] [address] [facility] [id number] [address] [place] [address] Apr, Cellulitis of unspecified pa rt of limb L03.119 ; Allergic contact dermatitis due to adhesives L23.1 and Chronic pain syndrome G89.4 [facility] [address] [facility] [id number] [address] [place] [address] Apr, [place] [address] [facility] [id number] [address] [place] [address] Apr, skilled nursing 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.01 ; Cellulitis of unspecified part of limb L03.119 ; Chronic pain syndrome G89.4 and Anxiety F41.9 [place] [address] [address] [place] [id number] [address] [place] [address] 16 Apr, 2015 [place] [address] [place] [id number] [place] [address] Apr, [place] [address] [address] Mar, [place] [address] [place] [id number] [place] [address] Mar, [place] [address] [address] Mar, Sore throat J02.9 ; Gastroes ophageal reflux disease without esophagitis K21.9 ; Pseudotumor cerebri G93.2 ; Chronic pain syndrome G89.4 ; Choriocarcinoma C58 ; History of pulmonary embolism Z86.711 ; History of DVT (deep vein thrombosis) Z86.718 ; Anxiety F41.9 and Tachycardia R00.0 [place] [address] [address] Feb, Anxiety 300.00 and Chronic p ain 338.29 [place] [address] [address] [place] [id number] [address] [place] [address] Feb, [place] [id number] [place] [address] Feb, [place] [address] [place] [id number] [place] [address] Jan, skilled nursing current use of ant icoagulant therapy V58.61 and Dysuria 788.1 [place] [address] [address] [place] [id number] [address] [place] [address] Jan, Dysuria 788.1 [place] [address] [place] [id number] [place] [address] Jan, Anxiety 300.00 and Chronic p ain 338.29 [place] [address] [address] Jan, [facility] [address] [address] Jan, [place] [address] [address] Jan, [place] [address] [address] Dec, Weakness 780.79 [place] [address] [address] Dec, manager long term care current use of ant icoagulant therapy V58.61 [place] [address] [address] Dec, Palpitations 785.1 ; Tremor 781.0 ; Weakness 780.79 ; skilled nursing current use of anticoagulant therapy V58.61 and Yeast vaginitis 112.1 [place] [address] [address] Dec, [place] [address] [address] Dec, Cervicalgia 723.1 ; Tachycar yoseph 785.0 ; Pseudotumor cerebri 348.2 and History of venous thromboembolism V12.51 [place] [address] [address] [place] [id number] [address] [place] [address] Nov, [place] [address] [address] Nov, [place] [address] [address] Nov, Tachycardia 785.0 ; Pseudotu mor cerebri 348.2 ; Anxiety 300.00 and History of venous thromboembolism V12.51 [facility] [address] [id number] [address] [place] [address], [place] [address] Nov, [facility] [address] [id number] [address] [place] [address], [place] [address] 18 Nov, 2014 [facility] [address] [id number] [address] [place] [address], [place] [address] 16 Nov, 2014 [facility] [address] [id number] [address] [place] [address], [place] [address] Nov, [facility] [address] [id number] [address] [place] [address], [place] [address] Nov, [facility] [address] [id number] [address] [place] [address], [place] [address] Nov, [facility] [address] [id number] [address] [place] [address], [place] [address] Nov, [facility] [address] [id number] [address] [place] [address] October, [facility] [address] [id number] [address] [place] [address] October, [facility] [address] [id number] [address] [place] [address] October, Pain in thoracic spine 724.1 and Tachycardia 785.0 [facility] [address] [id number] [address] [place] [address] October, [facility] [address] [id number] [address] [place] [address] October, [facility] [address] [id number] [address] [place] [address] Sep, [facility] [address] [id number] [address] [place] [address] Sep, [facility] [address] [id number] [address] [place] [address] Aug, [facility] [address] [id number] [address] [place] [address], [place] [address] Aug, [facility] [address] [id number] [address] [place] [address], [place] [address] Aug, [facility] [address] [id number] [address] [place] [address], [place] [address] 17 Aug, 2014 [facility] [address] [id number] [address] [place] [address], [place] [address] Aug, [facility] [address] [id number] [address] [place] [address], [place] [address] 16 Aug, 2014 [facility] [address] [id number] [address] [place] [address], [place] [address] Aug, [facility] [address] [id number] [address] [place] [address], [place] [address] Aug, [facility] [address] [id number] [address] [place] [address], [place] [address] Aug, 2014 [facility] [address] [id number] [address] [place] [address], [place] [address] Aug, [facility] [address] [id number] [address] [place] [address], [place] [address] Aug, [facility] [address] [id number] [address] [place] [address], [place] [address] Aug, [facility] [address] [id number] [address] [place] [address], [place] [address] Jul, 2014 [facility] [address] [id number] [address] [place] [address], [place] [address] Jul, 2014 [facility] [address] [id number] [address] [place] [address], [place] [address] Jul, 2014 [facility] [address] [id number] [address] [place] [address], [place] [address] Jul, 2014 [facility] [address] [id number] [address] [place] [address], [place] [address] b, 2014 [facility] [address] [id number] [address] [place] [address], [place] [address] 23 Jul, 2014 [facility] [address] [id number] [address] [place] [address], [place] [address] 23 Jul, 2014 [facility] [address] [id number] [address] [place] [address], [place] [address] 23 Jul, 2014 [facility] [address] [id number] [address] [place] [address], [place] [address] 20 Jul, 2014 [facility] [address] [id number] [address] [place] [address], [place] [address] 20 Jul, 2014 [facility] [address] [id number] [address] [place] [address], [place] [address] 19 Jul, 2014 [facility] [address] [id number] [address] [place] [address], [place] [address] 19 Jul, 2014 [facility] [address] [id number] [address] [place] [address], [place] [address] 17 Jul, 2014 [facility] [address] [id number] [address] [place] [address], [place] [address] 17 Jul, 2014 [facility] [address] [id number] [address] [place] [address], [place] [address] 16 Jul, 2014 [facility] [address] [id number] [address] [place] [address], [place] [address] 16 Jul, 2014 [facility] [address] [id number] [address] [place] [address], [place] [address] 16 Jul, 2014 [facility] [address] [id number] [address] [place] [address], [place] [address] 16 Jul, 2014 [facility] [address] [id number] [address] [place] [address], [place] [address] 13 Jul, 2014 [facility] [address] [id number] [address] [place] [address], [place] [address] Jul, 2014 [facility] [address] [id number] [address] [place] [address], [place] [address] Jul, 2014 [facility] [address] [id number] [address] [place] [address], [place] [address] Jul, 2014 [facility] [address] [id number] [address] [place] [address], [place] [address] Jul, 2014 [facility] [address] [id number] [address] [place] [address], [place] [address] Jul, 2014 [facility] [address] [id number] [address] [place] [address], [place] [address] Jul, [facility] [address] [id number] [address] [place] [address], [place] [address] Jul, [facility] [address] [id number] [address] [place] [address], [place] [address] Jul, [facility] [address] [id number] [address] [place] [address], [place] [address] Jul, [facility] [address] [id number] [address] [place] [address], [place] [address] Jul, [facility] [address] [id number] [address] [place] [address], [place] [address] Jul, [facility] [address] [id number] [address] [place] [address], [place] [address] Jun, [facility] [address] [id number] [address] [place] [address], [place] [address] Jun, [facility] [address] [id number] [address] [place] [address], [place] [address] Jun, [facility] [address] [id number] [address] [place] [address], [place] [address] Jun, [facility] [address] [id number] [address] [place] [address], [place] [address] Jun, [facility] [address] [id number] [address] [place] [address], [place] [address] Jun, [facility] [address] [id number] [address] [place] [address], [place] [address] Jun, [facility] [address] [id number] [address] [place] [address], [place] [address] Jun, [facility] [address] [id number] [address] [place] [address], [place] [address] Jun, [facility] [address] [id number] [address] [place] [address], [place] [address] Jun, [facility] [address] [id number] [address] [place] [address], [place] [address] Jun, [facility] [address] [id number] [address] [place] [address], [place] [address] Jun, [facility] [address] [id number] [address] [place] [address], [place] [address] Jun, [facility] [address] [id number] [address] [place] [address], [place] [address] Jun, [facility] [address] [id number] [address] [place] [address], [place] [address] Jun, [facility] [address] [id number] [address] [place] [address], [place] [address] Jun, [facility] [address] [id number] [address] [place] [address], [place] [address] Jun, [facility] [address] [id number] [address] [place] [address], [place] [address] Jun, [facility] [address] [id number] [address] [place] [address], [place] [address] Jun, [facility] [address] [id number] [address] [place] [address], [place] [address] Jun, [facility] [address] [id number] [address] [place] [address], [place] [address] May, [facility] [address] [id number] [address] [place] [address], [place] [address] May, [facility] [address] [id number] [address] [place] [address], [place] [address] May, [facility] [address] [id number] [address] [place] [address], [place] [address] May, [facility] [address] [id number] [address] [place] [address], [place] [address] May, [facility] [address] [id number] [address] [place] [address], [place] [address] May, [facility] [address] [id number] [address] [place] [address], [place] [address] May, [facility] [address] [id number] [address] [place] [address], [place] [address] May, [facility] [address] [id number] [address] [place] [address], [place] [address] May, [facility] [address] [id number] [address] [place] [address], [place] [address] May, [facility] [address] [id number] [address] [place] [address], [place] [address] May, [facility] [address] [id number] [address] [place] [address], [place] [address] 18 May, 2014 [facility] [address] [id number] [address] [place] [address], [place] [address] 18 May, 2014 [facility] [address] [id number] [address] [place] [address], [place] [address] 17 May, 2014 [facility] [address] [id number] [address] [place] [address], [place] [address] 16 May, 2014 [facility] [address] [id number] [address] [place] [address], [place] [address] 16 May, 2014 [facility] [address] [id number] [address] [place] [address], [place] [address] 15 May, 2014 [facility] [address] [id number] [address] [place] [address], [place] [address] 15 May, 2014 [facility] [address] [id number] [address] [place] [address], [place] [address] May, [facility] [address] [id number] [address] [place] [address], [place] [address] May, [facility] [address] [id number] [address] [place] [address], [place] [address] May, [facility] [address] [id number] [address] [place] [address], [place] [address] May, [facility] [address] [id number] [address] [place] [address], [place] [address] May, [facility] [address] [id number] [address] [place] [address], [place] [address] May, [facility] [address] [id number] [address] [place] [address], [place] [address] May, [facility] [address] [id number] [address] [place] [address], [place] [address] May, [facility] [address] [id number] [address] [place] [address], [place] [address] May, [facility] [address] [id number] [address] [place] [address], [place] [address] May, [facility] [address] [id number] [address] [place] [address], [place] [address] May, [facility] [address] [id number] [address] [place] [address], [place] [address] May, [facility] [address] [id number] [address] [place] [address], [place] [address] May, [facility] [address] [id number] [address] [place] [address], [place] [address] May, [facility] [address] [id number] [address] [place] [address], [place] [address] May, [facility] [address] [id number] [address] [place] [address], [place] [address] May, [facility] [address] [id number] [address] [place] [address], [place] [address] Apr, [facility] [address] [id number] [address] [place] [address], [place] [address] Apr, [facility] [address] [id number] [address] [place] [address], [place] [address] Apr, [facility] [address] [id number] [address] [place] [address], [place] [address] Apr, [facility] [address] [id number] [address] [place] [address], [place] [address] Apr, [facility] [address] [id number] [address] [place] [address], [place] [address] Apr, [facility] [address] [id number] [address] [place] [address], [place] [address] Apr, [facility] [address] [id number] [address] [place] [address], [place] [address] Apr, [facility] [address] [id number] [address] [place] [address], [place] [address] Apr, [facility] [address] [id number] [address] [place] [address], [place] [address] Apr, [facility] [address] [id number] [address] [place] [address], [place] [address] Mar, [facility] [address] [id number] [address] [place] [address], [place] [address] Mar, [facility] [address] [id number] [address] [place] [address], [place] [address] Mar, [facility] [address] [id number] [address] [place] [address], [place] [address] 31 Mar, 2013 [facility] [address] [id number] [address] [place] [address], [place] [address] 30 Mar, 2013 [facility] [address] [id number] [address] [place] [address], [place] [address] 30 Mar, 2014 [facility] [address] [id number] [address] [place] [address], [place] [id number] Mar, 2013 [facility] [address] [id number] [address] [place] [address], [place] [id number] 17 Mar, 2013 [facility] [address] [id number] [address] [place] [address], [place] [id number] 15 Mar, 2014 [facility] [address] [id number] [address] [place] [id number] 15 Mar, 2014 [facility] [address] [id number] [address] [place] [address], [place] [id number] 15 Mar, 2014 [facility] [address] [id number] [address] [place] [id number] Mar, [facility] [address] [id number] [address] [place] [address], [place] [id number] Mar, [facility] [address] [id number] [address] [place] [id number] Mar, [facility] [address] [id number] [address] [place] [id number] Mar, [facility] [address] [id number] [address] [place] [id number] Mar, 2013 [facility] [address] [id number] [address] [place] [address], [place] [id number] Mar, [facility] [address] [id number] [address] [place] [id number] Mar, [facility] [address] [id number] [address] [place] [id number] Mar, 2013 [facility] [address] [id number] [address] [place] [address], [place] [id number] 02 Mar, 2013 [facility] [address] [id number] [address] [place] [address], [place] [id number] 05 Sep, 2013 [facility] [address] [id number] [address] [place] [address], [place] [id number] 05 Sep, 2013 [facility] [address] [id number] [address] [place] [address], [place] [id number] 04 Sep, 2013 [facility] [address] [id number] [address] [place] [address], [place] [id number] 04 Sep, 2013 [facility] [address] [id number] [address] [place] [address], [place] [id number] 03 Feb, 2013 [facility] [address] [id number] [address] [place] [address], [place] [id number] Feb, 2013 [facility] [address] [id number] [address] [place] [address], [place] [id number] Feb, 2013 [facility] [address] [id number] [address] [place] [address], [place] [id number] Feb, 2013 [facility] [address] [id number] [address] [place] [address], [place] [id number] Feb, 2013 [facility] [address] [id number] [address] [place] [address], [place] [id number] Feb, 2013 [facility] [address] [id number] [address] [place] [address], [place] [id number] Jan, [facility] [address] [id number] [address] [place] [address], [place] [id number] Jan, [facility] [address] [id number] [address] [place] [address], [place] [id number] Jan, [facility] [address] [id number] [address] [place] [address], [place] [address] Jan, [facility] [address] [id number] [address] [place] [address], [place] [id number] Jan, [facility] [address] [id number] [address] [place] [address], [place] [id number] Jan, [facility] [address] [id number] [address] [place] [address], [place] [id number] Jan, [facility] [address] [id number] [address] [place] [address], [place] [id number] Jan, [facility] [address] [id number] [address] [place] [address], [place] [id number] Jan, [facility] [address] [id number] [address] [place] [address], [place] [id number] Jan, [facility] [address] [id number] [address] [place] [address], [place] [id number] Jan, [facility] [address] [id number] [address] [place] [address], [place] [id number] Jan, [facility] [address] [id number] [address] [place] [address], [place] [id number] Dec, [facility] [address] [id number] [address] [place] [address], [place] [id number] Dec, [facility] [address] [id number] [address] [place] [address], [place] [address] Dec, [facility] [address] [id number] [address] [place] [address], [place] [address] Dec, [facility] [address] [id number] [address] [place] [address], [place] [address] Dec, [facility] [address] [id number] [address] [place] [address], [place] [address] Dec, [facility] [address] [id number] [address] [place] [address], [place] [address] Dec, [facility] [address] [id number] [address] [place] [address], [place] [address] Dec, [facility] [address] [id number] [address] [place] [address], [place] [address] Dec, [facility] [address] [id number] [address] [place] [address], [place] [address] Dec, [facility] [address] [id number] [address] [place] [address], [place] [address] Dec, [facility] [address] [id number] [address] [place] [address], [place] [address] Dec, [facility] [address] [id number] [address] [place] [address], [place] [address] Nov, [facility] [address] [id number] [address] [place] [address], [place] [address] Nov, [facility] [address] [id number] [address] [place] [address], [place] [address] Nov, [facility] [address] [id number] [address] [place] [address], [place] [address] Nov, [facility] [address] [id number] [address] [place] [address], [place] [address] Nov, [facility] [address] [id number] [address] [place] [address], [place] [address] Nov, [facility] [address] [id number] [address] [place] [address], [place] [address] Nov, [facility] [address] [id number] [address] [place] [address], [place] [address] Nov, [facility] [address] [id number] [address] [place] [id number] Nov, [facility] [address] [id number] [address] [place] [address], [place] [address] Nov, [facility] [address] [id number] [address] [place] [address], [place] [address] Nov, [facility] [address] [id number] [address] [place] [address], [place] [address] Nov, [facility] [address] [id number] [address] [place] [address], [place] [address] Nov, [facility] [address] [id number] [address] [place] [address], [place] [address] Nov, [facility] [address] [id number] [address] [place] [address], [place] [address] October, [facility] [address] [id number] [address] [place] [address], [place] [address] October, [facility] [address] [id number] [address] [place] [address], [place] [address] October, [facility] [address] [id number] [address] [place] [address], [place] [address] October, [facility] [address] [id number] [address] [place] [address], [place] [address] October, [facility] [address] [id number] [address] [place] [address], [place] [address] October, [facility] [address] [id number] [address] [place] [address], [place] [address] October, [facility] [address] [id number] [address] [place] [address], [place] [address] October, [facility] [address] [id number] [address] [place] [address], [place] [address] October, [facility] [address] [id number] [address] [place] [address], [place] [address] October, [facility] [address] [id number] [address] [place] [address], [place] [address] October, [facility] [address] [id number] [address] [place] [address], [place] [address] October, [facility] [address] [id number] [address] [place] [address], [place] [address] Sep, [facility] [address] [id number] [address] [place] [address], [place] [address] Sep, [facility] [address] [id number] [facility] [place] [address] Sep, [facility] [address] [id number] [address] [place] [address], [place] [address] Sep, [facility] [address] [id number] [address] [place] [address], [place] [address] Sep, [facility] [address] [id number] [address] [place] [address], [place] [address] Sep, [facility] [address] [id number] [address] [place] [address], [place] [address] Aug, [facility] [address] [id number] [address] [place] [address], [place] [address] Aug, [facility] [address] [id number] [address] [place] [address], [place] [address] Aug, [facility] [address] [id number] [address] [place] [address], [place] [address] Aug, [facility] [address] [id number] [address] [place] [address], [place] [address] Aug, [facility] [address] [id number] [address] [place] [address], [place] [address] Aug, [facility] [address] [id number] [address] [place] [address], [place] [address] Jul, [facility] [address] [id number] [address] [place] [address], [place] [address] Jul, [facility] [address] [id number] [address] [place] [address], [place] [address] Jul, [facility] [address] [id number] [address] [place] [address], [place] [address] Jul, [facility] [address] [id number] [address] [place] [address], [place] [address] Jul, [facility] [address] [id number] [address] [place] [address], [place] [address] 13 Jul, 2013 [facility] [address] [id number] [address] [place] [address], [place] [address] Jul, [facility] [address] [id number] [address] [place] [address], [place] [address] Jul, [facility] [address] [id number] [address] [place] [address], [place] [address] Jul, [facility] [address] [id number] [address] [place] [address], [place] [address] Jul, [facility] [address] [id number] [address] [place] [address], [place] [address] Jun, [facility] [address] [id number] [address] [place] [address], [place] [address] Jun, [facility] [address] [id number] [address] [place] [address], [place] [address] Jun, [facility] [address] [id number] [address] [place] [address], [place] [address] Jun, [facility] [address] [id number] [address] [place] [address], [place] [address] Jun, [facility] [address] [id number] [address] [place] [address], [place] [address] Jun, [facility] [address] [id number] [address] [place] [address], [place] [address] Jun, [facility] [address] [id number] [address] [place] [address], [place] [address] Jun, [facility] [address] [id number] [address] [place] [address], [place] [address] May, [facility] [address] [id number] [address] [place] [address], [place] [address] May, [facility] [address] [id number] [address] [place] [address], [place] [address] May, [facility] [address] [id number] [address] [place] [address], [place] [address] May, [facility] [address] [id number] [address] [place] [address], [place] [address] May, [facility] [address] [id number] [address] [place] [address], [place] [address] May, [facility] [address] [id number] [address] [place] [address], [place] [address] May, [facility] [address] [id number] [address] [place] [address], [place] [address] May, [facility] [address] [id number] [address] [place] [address], [place] [address] Apr, [facility] [address] [id number] [address] [place] [address], [place] [address] Apr, [facility] [address] [id number] [address] [place] [address] Apr, [facility] [address] [id number] [address] [place] [address] Apr, [facility] [address] [id number] [address] [place] [address] Apr, [facility] [address] [id number] [address] [place] [address] Apr, [facility] [address] [id number] [address] [place] [id number] Mar, [facility] [address] [id number] [address] [place] [address] Mar, [facility] [address] [id number] [address] [place] [id number] Mar, [facility] [address] [id number] [address] [place] [id number] Mar, [facility] [address] [id number] [address] [place] [address], [place] [address] Mar, [facility] [address] [id number] [address] [place] [address], [place] [address] Mar, [facility] [address] [id number] [address] [place] [address], [place] [address] Mar, [facility] [address] [id number] [address] [place] [address], [place] [address] 30 Feb, 2013 [facility] [address] [id number] [address] [place] [address], [place] [address] 30 Feb, 2013 [facility] [address] [id number] [address] [place] [address], [place] [address] 27 Feb, 2013 [facility] [address] [id number] [address] [place] [address], [place] [address] Feb, [facility] [address] [id number] [address] [place] [address], [place] [address] Feb, [facility] [address] [id number] [address] [place] [address], [place] [address] Feb, [facility] [address] [id number] [address] [place] [address], [place] [address] Jan, [facility] [address] [id number] [address] [place] [address], [place] [address] Jan, [facility] [address] [id number] [address] [place] [address], [place] [address] Jan, [facility] [address] [id number] [address] [place] [address], [place] [address] Jan, [facility] [address] [id number] [address] [place] [address], [place] [address] Jan, [facility] [address] [id number] [address] [place] [address], [place] [address] Jan, [facility] [address] [id number] [address] [place] [address], [place] [address] Jan, [facility] [address] [id number] [address] [place] [address], [place] [address] Jan, [facility] [address] [id number] [address] [place] [address], [place] [address] Jan, [facility] [address] [id number] [address] [place] [address], [place] [address] Dec, [facility] [address] [id number] [address] [place] [address], [place] [address] Dec, [facility] [address] [id number] [address] [place] [address], [place] [address] Dec, [facility] [address] [id number] [address] [place] [address], [place] [address] Dec, [facility] [address] [id number] [address] [place] [address], [place] [address] Dec, [facility] [address] [id number] [address] [place] [address], [place] [address] Dec, [facility] [address] [id number] [address] [place] [address], [place] [address] Dec, [facility] [address] [id number] [address] [place] [address], [place] [address] Dec, [facility] [address] [id number] [address] [place] [address], [place] [address] Dec, [facility] [address] [id number] [address] [place] [address], [place] [address] Dec, [facility] [address] [id number] [address] [place] [address], [place] [address] Dec, [facility] [address] [id number] [address] [place] [address], [place] [address] Dec, [facility] [address] [id number] [address] [place] [address], [place] [address] Dec, [facility] [address] [id number] [address] [place] [address], [place] [address] Nov, [facility] [address] [id number] [address] [place] [address], [place] [address] Nov, [facility] [address] [id number] [address] [place] [address], [place] [address] Nov, [facility] [address] [id number] [address] [place] [address], [place] [address] Nov, [facility] [address] [id number] [address] [place] [address], [place] [address] October, [facility] [address] [id number] [address] [place] [address], [place] [address] October, [facility] [address] [id number] [address] [place] [address], [place] [address] October, [facility] [address] [id number] [address] [place] [address], [place] [address] October, [facility] [address] [id number] [address] [place] [address], [place] [address] October, [facility] [address] [id number] [address] [place] [address], [place] [address] October, [facility] [address] [id number] [address] [place] [address], [place] [address] 30 Sep, 2012 [facility] [address] [id number] [address] [place] [address], [place] [address] 29 Sep, 2012 [facility] [address] [id number] [address] [place] [address], [place] [address] 27 Sep, 2012 [facility] [address] [id number] [address] [place] [address], [place] [address] 23 Sep, 2012 [facility] [address] [id number] [address] [place] [address], [place] [address] Sep, [facility] [address] [id number] [address] [place] [address], [place] [address] 16 Sep, 2012 [facility] [address] [id number] [facility] [place] [address] 12 Sep, 2012 [facility] [address] [id number] [address] [place] [address], [place] [address] Sep, [facility] [address] [id number] [address] [place] [address], [place] [address] Sep, [facility] [address] [id number] [address] [place] [address], [place] [address] Sep, [facility] [address] [id number] [address] [place] [address], [place] [address] Sep, [facility] [address] [id number] [address] [place] [address], [place] [address] Aug, [facility] [address] [id number] [address] [place] [address], [place] [address] Aug, [facility] [address] [id number] [address] [place] [address], [place] [address] 25 Aug, 2012 [facility] [address] [id number] [address] [place] [address], [place] [address] 21 Aug, 2012 [facility] [address] [id number] [address] [place] [address], [place] [address] 19 Aug, 2012 [facility] [address] [id number] [address] [place] [address], [place] [address] 18 Aug, 2012 [facility] [address] [id number] [address] [place] [address], [place] [address] 17 Aug, 2012 [facility] [address] [id number] [address] [place] [address], [place] [address] 15 Aug, 2012 [facility] [address] [id number] [address] [place] [address], [place] [address] 15 Aug, 2012 [facility] [address] [id number] [address] [place] [address], [place] [address] 11 Aug, 2012 [facility] [address] [id number] [address] [place] [address], [place] [address] Aug, [facility] [address] [id number] [address] [place] [address], [place] [address] Aug, [facility] [address] [id number] [address] [place] [address], [place] [address] Jul, [facility] [address] [id number] [address] [place] [address], [place] [address] Jul, [facility] [address] [id number] [address] [place] [address], [place] [address] Jul, [facility] [address] [id number] [address] [place] [address], [place] [address] Jul, [facility] [address] [id number] [address] [place] [address], [place] [address] Jul, [facility] [address] [id number] [address] [place] [address], [place] [address] Jul, [facility] [address] [id number] [address] [place] [address], [place] [address] Jul, [facility] [address] [id number] [address] [place] [address], [place] [address] Jul, [facility] [address] [id number] [address] [place] [address], [place] [address] Jul, [facility] [address] [id number] [address] [place] [id number] Jul, [facility] [address] [id number] [address] [place] [id number] May, [facility] [address] [id number] [id number] May, [facility] [address] [id number] [address] [place] [id number] May, [facility] [address] [id number] [address] [place] [address], [place] [id number] 14 May, 2012 [facility] [address] [id number] [address] [place] [address], [place] [id number] May, [facility] [address] [id number] [address] [place] [address], [place] [id number] Apr, [facility] [place] [address] [id number] [place] [id number] Apr, [facility] [address] [facility] [id number] [address] [place] [address], [place] [id number] Apr, [facility] [address] [facility] [id number] [address] [place] [address], [place] [address] Mar, [facility] [address] [id number] [place] [id number] Mar, [facility] [address] [facility] [id number] [address] [place] [address], [place] [address] Mar, [facility] [place] [address] [id number] [place] [id number] Feb, [facility] [address] [facility] [id number] [address] [place] [address], [place] [address] Feb, [facility] [address] [facility] [id number] [address] [place] [address], [place] [address] Feb, [facility] [address] [id number] [place] [id number] Feb, [facility] [address] [id number] [place] [id number] Feb, [facility] [address] [id number] [place] [id number] Jan, [facility] [address] [id number] [address] [place] [address], [place] [address] Jan, [facility] [place] [address] [id number] [place] [id number] Jan, [facility] [place] [address] [id number] [place] [id number] Jan, [facility] [place] [address] [id number] [place] [id number] Jan, [facility] [address] [id number] [address] [place] [address], [place] [id number] Jan, [facility] [address] [facility] [id number] [address] [place] [address], [place] [address] Jan, [facility] [address] [facility] [id number] [address] [place] [address], [place] [id number] Aug, [facility] [place] [address] [facility] [id number] [place] [id number] Aug, [facility] [address] [facility] [id number] [address] [place] [address], [place] [address] Jul, [facility] [address] [facility] [id number] [address] [place] [address], [place] [address] Jul, [facility] [address] [facility] [id number] [address] [place] [address], [place] [id number] Jul, [facility] [place] [address] [facility] [id number] [place] [id number] Jul, [facility] [address] [facility] [id number] [address] [place] [address], [place] [address] Jul, [facility] [place] [address] [facility] [id number] [place] [id number] Jul, [facility] [address] [facility] [id number] [address] [place] [address], [place] [address] Jul, [facility] [place] [address] [id number] [place] [id number] Jul, [facility] [place] [address] [id number] [place] [id number] Jul, [facility] [place] [address] [id number] [place] [id number] Jul, [facility] [address] [facility] [id number] [address] [place] [address], [place] [id number] May, [facility] [address] [facility] [id number] [address] [place] [address], [place] [address] May, [facility] [address] [id number] [address] [place] [id number] May, [facility] [address] [id number] [address] [place] [id number] Apr, [facility] [address] [id number] [address] [place] [id number] Jan, [facility] [address] [id number] [address] [place] [id number] Jan, [facility] [address] [id number] [address] [place] [id number] Dec, [facility] [address] [id number] [address] [place] [id number] Dec, [facility] [address] [id number] [address] [place] [id number] 16 May, 2009 [facility] [address] [id number] [address] [place] [id number] Mar, [facility] [address] [id number] [address] [place] [id number] Mar, [facility] [address] [id number] [address] [place] [id number] Jan, IMMUNIZATIONS No Known Immunizations SOCIAL HISTORY Never Assessed REASON FOR VISIT [facility] PLAN OF CARE VITAL SIGNS [...]
--- OUTSIDE RECORDS SUMMARY | 2020-01-28 13:01 | XMS REPORT ---
Author Author Heydi Candelario Doctor Organization [facility] Address Unknown Phone Unavailable Care Team Providers Care Manufacturing Inspector Name Role Phone Migration, Doctor Unavailable Unavailable PROBLEMS Type Condition ICD9-CM Code ZPV85-UK Code Onset Dates Condition S tatus SNOMED Code Problem Chronic pain syndrome G89.4 Active 907813331 Problem Sore throat J02.9 Active 44935487 3 Problem Choriocarcinoma C58 Active 1881 44912 Problem half-way current use of anticoagulant Z79.01 Active 256463073 Problem History of venous thromboembolism V12.51 Active 971208322 Problem Cellulitis of unspecified part of limb L03.119 Active 914654362 Problem Gastroesophageal reflux disease without esophagitis K21.9 Active 057474145 Problem History of pulmonary embolism Z86.711 Active 396559563 Problem Pseudotumor cerebri G93.2 Active 18894269 Problem History of DVT (deep vein thrombosis) Z86.718 Active 540381267 ALLERGIES No Information ENCOUNTERS Encounter Location Date Diagnosis [place] [address] [address] [facility] [id number] [address] [place] [phone] Apr, 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 [place] [address] [facility] [id number] [address] [place] [address] Apr, 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 [place] [address] [facility] [id number] [address] [place] [address] Apr, Cellulitis of unspecified pa rt of limb L03.119 ; Allergic contact dermatitis due to adhesives L23.1 and Chronic pain syndrome G89.4 [facility] [address] [facility] [id number] [address] [place] [address] Apr, [place] [address] [address] [facility] [id number] [address] [place] [address] Apr, half-way 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.01 ; Cellulitis of unspecified part of limb L03.119 ; Chronic pain syndrome G89.4 and Anxiety F41.9 [place] [address] [address] [place] [id number] [address] [place] [address] 16 Apr, 2015 [place] [address] [place] [id number] [place] [address] Apr, [place] [address] [address] Mar, [place] [address] [place] [id number] [place] [address] Mar, [place] [address] [address] Mar, Sore throat J02.9 ; Gastroes ophageal reflux disease without esophagitis K21.9 ; Pseudotumor cerebri G93.2 ; Chronic pain syndrome G89.4 ; Choriocarcinoma C58 ; History of pulmonary embolism Z86.711 ; History of DVT (deep vein thrombosis) Z86.718 ; Anxiety F41.9 and Tachycardia R00.0 [place] [address] [address] Feb, Anxiety 300.00 and Chronic p ain 338.29 [place] [address] [place] [id number] [address] [place] [address] Feb, [place] [id number] [place] [address] Feb, [place] [address] [address] [place] [id number] [place] [address] Jan, half-way current use of ant icoagulant therapy V58.61 and Dysuria 788.1 [place] [address] [address] [place] [id number] [address] [place] [address] Jan, Dysuria 788.1 [place] [address] [place] [id number] [place] [address] Jan, Anxiety 300.00 and Chronic p ain 338.29 [place] [address] [address] Jan, [facility] [address] [address] Jan, [place] [address] [address] Jan, [place] [address] [address] Dec, Weakness 780.79 [place] [address] [address] Dec, 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 [place] [address] [address] Dec, Palpitations 785.1 ; Tremor 781.0 ; Weakness 780.79 ; half-way current use of anticoagulant therapy V58.61 and Yeast vaginitis 112.1 [place] [address] [address] Dec, [place] [address] [address] Dec, Cervicalgia 723.1 ; Tachycar yoseph 785.0 ; Pseudotumor cerebri 348.2 and History of venous thromboembolism V12.51 [place] [address] [address] [place] [id number] [address] [place] [address] Nov, [place] [address] [address] Nov, [place] [address] [address] Nov, Tachycardia 785.0 ; Pseudotu mor cerebri 348.2 ; Anxiety 300.00 and History of venous thromboembolism V12.51 [facility] [address] [id number] [address] [place] [address], [place] [address] Nov, [facility] [address] [id number] [address] [place] [address], [place] [address] 18 Nov, 2014 [facility] [address] [id number] [address] [place] [address], [place] [address] 16 Nov, 2014 [facility] [address] [id number] [address] [place] [address], [place] [address] Nov, [facility] [address] [id number] [address] [place] [address], [place] [address] Nov, [facility] [address] [id number] [address] [place] [address], [place] [address] Nov, [facility] [address] [id number] [address] [place] [address], [place] [address] Nov, [facility] [address] [id number] [address] [place] [address] October, [facility] [address] [id number] [address] [place] [address] October, [facility] [address] [id number] [address] [place] [address] October, Pain in thoracic spine 724.1 and Tachycardia 785.0 [facility] [address] [id number] [address] [place] [address] October, [facility] [address] [id number] [address] [place] [address] October, [facility] [address] [id number] [address] [place] [address] Sep, [facility] [address] [id number] [address] [place] [address] Sep, [facility] [address] [id number] [address] [place] [address] Aug, [facility] [address] [id number] [address] [place] [address], [place] [address] Aug, [facility] [address] [id number] [address] [place] [address], [place] [address] Aug, [facility] [address] [id number] [address] [place] [address], [place] [address] 17 Aug, 2014 [facility] [address] [id number] [address] [place] [address], [place] [address] Aug, [facility] [address] [id number] [address] [place] [address], [place] [address] 16 Aug, 2014 [facility] [address] [id number] [address] [place] [address], [place] [address] Aug, [facility] [address] [id number] [address] [place] [address], [place] [address] Aug, [facility] [address] [id number] [address] [place] [address], [place] [address] Aug, 2014 [facility] [address] [id number] [address] [place] [address], [place] [address] Aug, [facility] [address] [id number] [address] [place] [address], [place] [address] Aug, [facility] [address] [id number] [address] [place] [address], [place] [address] Aug, [facility] [address] [id number] [address] [place] [address], [place] [address] Jul, 2014 [facility] [address] [id number] [address] [place] [address], [place] [address] Jul, 2014 [facility] [address] [id number] [address] [place] [address], [place] [address] Jul, 2014 [facility] [address] [id number] [address] [place] [address], [place] [address] Jul, 2014 [facility] [address] [id number] [address] [place] [address], [place] [address] b, 2014 [facility] [address] [id number] [address] [place] [address], [place] [address] 23 Jul, 2014 [facility] [address] [id number] [address] [place] [address], [place] [address] 23 Jul, 2014 [facility] [address] [id number] [address] [place] [address], [place] [address] 23 Jul, 2014 [facility] [address] [id number] [address] [place] [address], [place] [address] 20 Jul, 2014 [facility] [address] [id number] [address] [place] [address], [place] [address] 20 Jul, 2014 [facility] [address] [id number] [address] [place] [address], [place] [address] 19 Jul, 2014 [facility] [address] [id number] [address] [place] [address], [place] [address] 19 Jul, 2014 [facility] [address] [id number] [address] [place] [address], [place] [address] 17 Jul, 2014 [facility] [address] [id number] [address] [place] [address], [place] [address] 17 Jul, 2014 [facility] [address] [id number] [address] [place] [address], [place] [address] 16 Jul, 2014 [facility] [address] [id number] [address] [place] [address], [place] [address] 16 Jul, 2014 [facility] [address] [id number] [address] [place] [address], [place] [address] 16 Jul, 2014 [facility] [address] [id number] [address] [place] [address], [place] [address] 16 Jul, 2014 [facility] [address] [id number] [address] [place] [address], [place] [address] 13 Jul, 2014 [facility] [address] [id number] [address] [place] [address], [place] [address] Jul, 2014 [facility] [address] [id number] [address] [place] [address], [place] [address] Jul, 2014 [facility] [address] [id number] [address] [place] [address], [place] [address] Jul, 2014 [facility] [address] [id number] [address] [place] [address], [place] [address] Jul, 2014 [facility] [address] [id number] [address] [place] [address], [place] [address] Jul, 2014 [facility] [address] [id number] [address] [place] [address], [place] [address] Jul, [facility] [address] [id number] [address] [place] [address], [place] [address] Jul, [facility] [address] [id number] [address] [place] [address], [place] [address] Jul, [facility] [address] [id number] [address] [place] [address], [place] [address] Jul, [facility] [address] [id number] [address] [place] [address], [place] [address] Jul, [facility] [address] [id number] [address] [place] [address], [place] [address] Jul, [facility] [address] [id number] [address] [place] [address], [place] [address] Jun, [facility] [address] [id number] [address] [place] [address], [place] [address] Jun, [facility] [address] [id number] [address] [place] [address], [place] [address] Jun, [facility] [address] [id number] [address] [place] [address], [place] [address] Jun, [facility] [address] [id number] [address] [place] [address], [place] [address] Jun, [facility] [address] [id number] [address] [place] [address], [place] [address] Jun, [facility] [address] [id number] [address] [place] [address], [place] [address] Jun, [facility] [address] [id number] [address] [place] [address], [place] [address] Jun, [facility] [address] [id number] [address] [place] [address], [place] [address] Jun, [facility] [address] [id number] [address] [place] [address], [place] [address] Jun, [facility] [address] [id number] [address] [place] [address], [place] [address] Jun, [facility] [address] [id number] [address] [place] [address], [place] [address] Jun, [facility] [address] [id number] [address] [place] [address], [place] [address] Jun, [facility] [address] [id number] [address] [place] [address], [place] [address] Jun, [facility] [address] [id number] [address] [place] [address], [place] [address] Jun, [facility] [address] [id number] [address] [place] [address], [place] [address] Jun, [facility] [address] [id number] [address] [place] [address], [place] [address] Jun, [facility] [address] [id number] [address] [place] [address], [place] [address] Jun, [facility] [address] [id number] [address] [place] [address], [place] [address] Jun, [facility] [address] [id number] [address] [place] [address], [place] [address] Jun, [facility] [address] [id number] [address] [place] [address], [place] [address] May, [facility] [address] [id number] [address] [place] [address], [place] [address] May, [facility] [address] [id number] [address] [place] [address], [place] [address] May, [facility] [address] [id number] [address] [place] [address], [place] [address] May, [facility] [address] [id number] [address] [place] [address], [place] [address] May, [facility] [address] [id number] [address] [place] [address], [place] [address] May, [facility] [address] [id number] [address] [place] [address], [place] [address] May, [facility] [address] [id number] [address] [place] [address], [place] [address] May, [facility] [address] [id number] [address] [place] [address], [place] [address] May, [facility] [address] [id number] [address] [place] [address], [place] [address] May, [facility] [address] [id number] [address] [place] [address], [place] [address] May, [facility] [address] [id number] [address] [place] [address], [place] [address] 18 May, 2014 [facility] [address] [id number] [address] [place] [address], [place] [address] 18 May, 2014 [facility] [address] [id number] [address] [place] [address], [place] [address] 17 May, 2014 [facility] [address] [id number] [address] [place] [address], [place] [address] 16 May, 2014 [facility] [address] [id number] [address] [place] [address], [place] [address] 16 May, 2014 [facility] [address] [id number] [address] [place] [address], [place] [address] 15 May, 2014 [facility] [address] [id number] [address] [place] [address], [place] [address] 15 May, 2014 [facility] [address] [id number] [address] [place] [address], [place] [address] May, [facility] [address] [id number] [address] [place] [address], [place] [address] May, [facility] [address] [id number] [address] [place] [address], [place] [address] May, [facility] [address] [id number] [address] [place] [address], [place] [address] May, [facility] [address] [id number] [address] [place] [address], [place] [address] May, [facility] [address] [id number] [address] [place] [address], [place] [address] May, [facility] [address] [id number] [address] [place] [address], [place] [address] May, [facility] [address] [id number] [address] [place] [address], [place] [address] May, [facility] [address] [id number] [address] [place] [address], [place] [address] May, [facility] [address] [id number] [address] [place] [address], [place] [address] May, [facility] [address] [id number] [address] [place] [address], [place] [address] May, [facility] [address] [id number] [address] [place] [address], [place] [address] May, [facility] [address] [id number] [address] [place] [address], [place] [address] May, [facility] [address] [id number] [address] [place] [address], [place] [address] May, [facility] [address] [id number] [address] [place] [address], [place] [address] May, [facility] [address] [id number] [address] [place] [address], [place] [address] May, [facility] [address] [id number] [address] [place] [address], [place] [address] Apr, [facility] [address] [id number] [address] [place] [address], [place] [address] Apr, [facility] [address] [id number] [address] [place] [address], [place] [address] Apr, [facility] [address] [id number] [address] [place] [address], [place] [address] Apr, [facility] [address] [id number] [address] [place] [address], [place] [address] Apr, [facility] [address] [id number] [address] [place] [address], [place] [address] Apr, [facility] [address] [id number] [address] [place] [address], [place] [address] Apr, [facility] [address] [id number] [address] [place] [address], [place] [address] Apr, [facility] [address] [id number] [address] [place] [address], [place] [address] Apr, [facility] [address] [id number] [address] [place] [address], [place] [address] Apr, [facility] [address] [id number] [address] [place] [address], [place] [address] Mar, [facility] [address] [id number] [address] [place] [address], [place] [address] Mar, [facility] [address] [id number] [address] [place] [address], [place] [address] Mar, [facility] [address] [id number] [address] [place] [address], [place] [address] 31 Mar, 2013 [facility] [address] [id number] [address] [place] [address], [place] [id number] 30 Mar, 2013 [facility] [address] [id number] [address] [place] [address], [place] [address] 30 Mar, 2014 [facility] [address] [id number] [address] [place] [address], [place] [address] Mar, 2013 [facility] [address] [id number] [address] [place] [address], [place] [id number] 17 Mar, 2013 [facility] [address] [id number] [address] [place] [address], [place] [address] 15 Mar, 2014 [facility] [address] [id number] [address] [place] [id number] 15 Mar, 2014 [facility] [address] [id number] [address] [place] [address], [place] [address] 15 Mar, 2014 [facility] [address] [id number] [address] [place] [id number] Mar, [facility] [address] [id number] [address] [place] [address], [place] [address] Mar, [facility] [address] [id number] [address] [place] [id number] Mar, [facility] [address] [id number] [address] [place] [id number] Mar, [facility] [address] [id number] [address] [place] [phone] Mar, 2013 [facility] [address] [id number] [address] [place] [address], [place] [address] Mar, [facility] [address] [id number] [address] [place] [id number] Mar, [facility] [address] [id number] [address] [place] [id number] Mar, 2013 [facility] [address] [id number] [address] [place] [address], [place] [id number] 02 Mar, 2013 [facility] [address] [id number] [address] [place] [address], [place] [id number] 05 Sep, 2013 [facility] [address] [id number] [address] [place] [address], [place] [id number] 05 Sep, 2013 [facility] [address] [id number] [address] [place] [address], [place] [id number] 04 Sep, 2013 [facility] [address] [id number] [address] [place] [address], [place] [id number] 04 Sep, 2013 [facility] [address] [id number] [address] [place] [address], [place] [id number] 03 Feb, 2013 [facility] [address] [id number] [address] [place] [address], [place] [address] Feb, 2013 [facility] [address] [id number] [address] [place] [address], [place] [id number] Feb, 2013 [facility] [address] [id number] [address] [place] [address], [place] [address] Feb, 2013 [facility] [address] [id number] [address] [place] [address], [place] [address] Feb, 2013 [facility] [address] [id number] [address] [place] [address], [place] [address] Feb, 2013 [facility] [address] [id number] [address] [place] [address], [place] [address] Jan, [facility] [address] [id number] [address] [place] [address], [place] [address] Jan, [facility] [address] [id number] [address] [place] [address], [place] [address] Jan, [facility] [address] [id number] [address] [place] [address], [place] [address] Jan, [facility] [address] [id number] [address] [place] [address], [place] [id number] Jan, [facility] [address] [id number] [address] [place] [address], [place] [address] Jan, [facility] [address] [id number] [address] [place] [address], [place] [address] Jan, [facility] [address] [id number] [address] [place] [address], [place] [address] Jan, [facility] [address] [id number] [address] [place] [address], [place] [address] Jan, [facility] [address] [id number] [address] [place] [address], [place] [address] Jan, [facility] [address] [id number] [address] [place] [address], [place] [address] Jan, [facility] [address] [id number] [address] [place] [address], [place] [address] Jan, [facility] [address] [id number] [address] [place] [address], [place] [address] Dec, [facility] [address] [id number] [address] [place] [address], [place] [address] Dec, [facility] [address] [id number] [address] [place] [address], [place] [id number] Dec, [facility] [address] [id number] [address] [place] [address], [place] [address] Dec, [facility] [address] [id number] [address] [place] [address], [place] [address] Dec, [facility] [address] [id number] [address] [place] [address], [place] [address] Dec, [facility] [address] [id number] [address] [place] [address], [place] [address] Dec, [facility] [address] [id number] [address] [place] [address], [place] [address] Dec, [facility] [address] [id number] [address] [place] [address], [place] [address] Dec, [facility] [address] [id number] [address] [place] [address], [place] [address] Dec, [facility] [address] [id number] [address] [place] [address], [place] [address] Dec, [facility] [address] [id number] [address] [place] [address], [place] [address] Dec, [facility] [address] [id number] [address] [place] [address], [place] [address] Nov, [facility] [address] [id number] [address] [place] [address], [place] [address] Nov, [facility] [address] [id number] [address] [place] [address], [place] [address] Nov, [facility] [address] [id number] [address] [place] [address], [place] [address] Nov, [facility] [address] [id number] [address] [place] [address], [place] [address] Nov, [facility] [address] [id number] [address] [place] [address], [place] [address] Nov, [facility] [address] [id number] [address] [place] [address], [place] [address] Nov, [facility] [address] [id number] [address] [place] [address], [place] [address] Nov, [facility] [address] [id number] [address] [place] [address] Nov, [facility] [address] [id number] [address] [place] [address], [place] [address] Nov, [facility] [address] [id number] [address] [place] [address], [place] [address] Nov, [facility] [address] [id number] [address] [place] [address], [place] [address] Nov, [facility] [address] [id number] [address] [place] [address], [place] [address] Nov, [facility] [address] [id number] [address] [place] [address], [place] [address] Nov, [facility] [address] [id number] [address] [place] [address], [place] [address] October, [facility] [address] [id number] [address] [place] [address], [place] [address] October, [facility] [address] [id number] [address] [place] [address], [place] [address] October, [facility] [address] [id number] [address] [place] [address], [place] [address] October, [facility] [address] [id number] [address] [place] [address], [place] [address] October, [facility] [address] [id number] [address] [place] [address], [place] [address] October, [facility] [address] [id number] [address] [place] [address], [place] [address] October, [facility] [address] [id number] [address] [place] [address], [place] [address] October, [facility] [address] [id number] [address] [place] [address], [place] [address] October, [facility] [address] [id number] [address] [place] [address], [place] [address] October, [facility] [address] [id number] [address] [place] [address], [place] [address] October, [facility] [address] [id number] [address] [place] [address], [place] [address] October, [facility] [address] [id number] [address] [place] [address], [place] [address] Sep, [facility] [address] [id number] [address] [place] [address], [place] [address] Sep, [facility] [address] [id number] [facility] [place] [address] Sep, [facility] [address] [id number] [address] [place] [address], [place] [address] Sep, [facility] [address] [id number] [address] [place] [address], [place] [address] Sep, [facility] [address] [id number] [address] [place] [address], [place] [address] Sep, [facility] [address] [id number] [address] [place] [address], [place] [address] Aug, [facility] [address] [id number] [address] [place] [address], [place] [address] Aug, [facility] [address] [id number] [address] [place] [address], [place] [address] Aug, [facility] [address] [id number] [address] [place] [address], [place] [address] Aug, [facility] [address] [id number] [address] [place] [address], [place] [address] Aug, [facility] [address] [id number] [address] [place] [address], [place] [address] Aug, [facility] [address] [id number] [address] [place] [address], [place] [address] Jul, [facility] [address] [id number] [address] [place] [address], [place] [address] Jul, [facility] [address] [id number] [address] [place] [address], [place] [address] Jul, [facility] [address] [id number] [address] [place] [address], [place] [address] Jul, [facility] [address] [id number] [address] [place] [address], [place] [address] Jul, [facility] [address] [id number] [address] [place] [address], [place] [address] 13 Jul, 2013 [facility] [address] [id number] [address] [place] [address], [place] [address] Jul, [facility] [address] [id number] [address] [place] [address], [place] [address] Jul, [facility] [address] [id number] [address] [place] [address], [place] [address] Jul, [facility] [address] [id number] [address] [place] [address], [place] [address] Jul, [facility] [address] [id number] [address] [place] [address], [place] [address] Jun, [facility] [address] [id number] [address] [place] [address], [place] [address] Jun, [facility] [address] [id number] [address] [place] [address], [place] [address] Jun, [facility] [address] [id number] [address] [place] [address], [place] [address] Jun, [facility] [address] [id number] [address] [place] [address], [place] [address] Jun, [facility] [address] [id number] [address] [place] [address], [place] [address] Jun, [facility] [address] [id number] [address] [place] [address], [place] [address] Jun, [facility] [address] [id number] [address] [place] [address], [place] [address] Jun, [facility] [address] [id number] [address] [place] [address], [place] [address] May, [facility] [address] [id number] [address] [place] [address], [place] [address] May, [facility] [address] [id number] [address] [place] [address] [address] May, [facility] [address] [id number] [address] [place] [address], [place] [address] May, [facility] [address] [id number] [address] [place] [address], [place] [address] May, [facility] [address] [id number] [address] [place] [address], [place] [address] May, [facility] [address] [id number] [address] [place] [address], [place] [address] May, [facility] [address] [id number] [address] [place] [address], [place] [address] May, [facility] [address] [id number] [address] [place] [address], [place] [address] Apr, [facility] [address] [id number] [address] [place] [address], [place] [address] Apr, [facility] [address] [id number] [address] [place] [address] Apr, [facility] [address] [id number] [address] [place] [address] Apr, [facility] [address] [id number] [address] [place] [address] Apr, [facility] [address] [id number] [address] [place] [address] Apr, [facility] [address] [id number] [address] [place] [address] Mar, [facility] [address] [id number] [address] [place] [address] Mar, [facility] [address] [id number] [address] [place] [address] Mar, [facility] [address] [id number] [address] [place] [address] Mar, [facility] [address] [id number] [address] [place] [address], [place] [address] Mar, [facility] [address] [id number] [address] [place] [address], [place] [address] Mar, [facility] [address] [id number] [address] [place] [address], [place] [address] Mar, [facility] [address] [id number] [address] [place] [address], [place] [address] 30 Feb, 2013 [facility] [address] [id number] [address] [place] [address], [place] [address] 30 Feb, 2013 [facility] [address] [id number] [address] [place] [address], [place] [address] 27 Feb, 2013 [facility] [address] [id number] [address] [place] [address], [place] [address] Feb, [facility] [address] [id number] [address] [place] [address], [place] [address] Feb, [facility] [address] [id number] [address] [place] [address], [place] [address] Feb, [facility] [address] [id number] [address] [place] [address], [place] [address] Jan, [facility] [address] [id number] [address] [place] [address], [place] [address] Jan, [facility] [address] [id number] [address] [place] [address], [place] [address] Jan, [facility] [address] [id number] [address] [place] [address], [place] [address] Jan, [facility] [address] [id number] [address] [place] [address], [place] [address] Jan, [facility] [address] [id number] [address] [place] [address], [place] [address] Jan, [facility] [address] [id number] [address] [place] [address], [place] [address] Jan, [facility] [address] [id number] [address] [place] [address], [place] [address] Jan, [facility] [address] [id number] [address] [place] [address], [place] [address] Jan, [facility] [address] [id number] [address] [place] [address], [place] [address] Dec, [facility] [address] [id number] [address] [place] [address], [place] [address] Dec, [facility] [address] [id number] [address] [place] [address], [place] [address] Dec, [facility] [address] [id number] [address] [place] [address], [place] [address] Dec, [facility] [address] [id number] [address] [place] [address], [place] [address] Dec, [facility] [address] [id number] [address] [place] [address], [place] [address] Dec, [facility] [address] [id number] [address] [place] [address], [place] [address] Dec, [facility] [address] [id number] [address] [place] [address], [place] [address] Dec, [facility] [address] [id number] [address] [place] [address], [place] [address] Dec, [facility] [address] [id number] [address] [place] [address], [place] [address] Dec, [facility] [address] [id number] [address] [place] [address], [place] [address] Dec, [facility] [address] [id number] [address] [place] [address], [place] [address] Dec, [facility] [address] [id number] [address] [place] [address], [place] [address] Dec, [facility] [address] [id number] [address] [place] [address], [place] [address] Nov, [facility] [address] [id number] [address] [place] [address], [place] [address] Nov, [facility] [address] [id number] [address] [place] [address], [place] [address] Nov, [facility] [address] [id number] [address] [place] [address], [place] [address] Nov, [facility] [address] [id number] [address] [place] [address], [place] [address] October, [facility] [address] [id number] [address] [place] [address], [place] [address] October, [facility] [address] [id number] [address] [place] [address], [place] [address] October, [facility] [address] [id number] [address] [place] [address], [place] [address] October, [facility] [address] [id number] [address] [place] [address], [place] [address] October, [facility] [address] [id number] [address] [place] [address], [place] [address] October, [facility] [address] [id number] [address] [place] [address], [place] [address] 30 Sep, 2012 [facility] [address] [id number] [address] [place] [address], [place] [address] 29 Sep, 2012 [facility] [address] [id number] [address] [place] [address], [place] [address] 27 Sep, 2012 [facility] [address] [id number] [address] [place] [address], [place] [address] 23 Sep, 2012 [facility] [address] [id number] [address] [place] [address], [place] [address] Sep, [facility] [address] [id number] [address] [place] [address], [place] [address] 16 Sep, 2012 [facility] [address] [id number] [facility] [place] [address] 12 Sep, 2012 [facility] [address] [id number] [address] [place] [address], [place] [address] Sep, [facility] [address] [id number] [address] [place] [address], [place] [address] Sep, [facility] [address] [id number] [address] [place] [address], [place] [address] Sep, [facility] [address] [id number] [address] [place] [address], [place] [address] Sep, [facility] [address] [id number] [address] [place] [address], [place] [address] Aug, [facility] [address] [id number] [address] [place] [address], [place] [address] Aug, [facility] [address] [id number] [address] [place] [address], [place] [address] 25 Aug, 2012 [facility] [address] [id number] [address] [place] [address], [place] [address] 21 Aug, 2012 [facility] [address] [id number] [address] [place] [address], [place] [address] 19 Aug, 2012 [facility] [address] [id number] [address] [place] [address], [place] [address] 18 Aug, 2012 [facility] [address] [id number] [address] [place] [address], [place] [address] 17 Aug, 2012 [facility] [address] [id number] [address] [place] [address], [place] [address] 15 Aug, 2012 [facility] [address] [id number] [address] [place] [address], [place] [address] 15 Aug, 2012 [facility] [address] [id number] [address] [place] [address], [place] [address] 11 Aug, 2012 [facility] [address] [id number] [address] [place] [address], [place] [address] Aug, [facility] [address] [id number] [address] [place] [address], [place] [address] Aug, [facility] [address] [id number] [address] [place] [address], [place] [address] Jul, [facility] [address] [id number] [address] [place] [address], [place] [address] Jul, [facility] [address] [id number] [address] [place] [address], [place] [address] Jul, [facility] [address] [id number] [address] [place] [address], [place] [address] Jul, [facility] [address] [id number] [address] [place] [address], [place] [id number] Jul, [facility] [address] [id number] [address] [place] [address], [place] [id number] Jul, [facility] [address] [id number] [address] [place] [address], [place] [id number] Jul, [facility] [address] [id number] [address] [place] [address], [place] [address] Jul, [facility] [address] [id number] [address] [place] [address], [place] [id number] Jul, [facility] [address] [id number] [address] [place] [id number] Jul, [facility] [address] [id number] [address] [place] [phone] May, [facility] [address] [id number] [place] [id number] May, [facility] [address] [id number] [address] [place] [phone] May, [facility] [address] [id number] [address] [place] [address], [place] [id number] 14 May, 2012 [facility] [address] [id number] [address] [place] [address], [place] [address] May, [facility] [address] [id number] [address] [place] [address], [place] [address] Apr, [facility] [place] [address] [id number] [place] [id number] Apr, [facility] [address] [facility] [id number] [address] [place] [address], [place] [address] Apr, [facility] [address] [facility] [id number] [address] [place] [address], [place] [address] Mar, [facility] [address] [id number] [place] [id number] Mar, [facility] [address] [facility] [id number] [address] [place] [address], [place] [id number] Mar, [facility] [place] [address] [id number] [place] [id number] Feb, [facility] [address] [facility] [id number] [address] [place] [address], [place] [id number] Feb, [facility] [address] [facility] [id number] [address] [place] [address], [place] [address] Feb, [facility] [address] [id number] [place] [id number] Feb, [facility] [address] [id number] [place] [id number] Feb, [facility] [address] [id number] [place] [id number] Jan, [facility] [address] [id number] [address] [place] [address], [place] [address] Jan, [facility] [place] [address] [id number] [place] [id number] Jan, [facility] [address] [id number] [place] [id number] Jan, [facility] [place] [address] [id number] [place] [id number] Jan, [facility] [address] [id number] [address] [place] [address], [place] [address] Jan, [facility] [address] [facility] [id number] [address] [place] [address], [place] [address] Jan, [facility] [address] [facility] [id number] [address] [place] [address], [place] [address] Aug, [facility] [place] [address] [facility] [id number] [place] [id number] Aug, [facility] [address] [facility] [id number] [address] [place] [address], [place] [id number] Jul, [facility] [address] [facility] [id number] [address] [place] [address], [place] [id number] Jul, [facility] [address] [facility] [id number] [address] [place] [address], [place] [id number] Jul, [facility] [place] [address] [facility] [id number] [place] [id number] Jul, [facility] [address] [facility] [id number] [address] [place] [address], [place] [address] Jul, [facility] [address] [facility] [id number] [place] [id number] Jul, [facility] [address] [facility] [id number] [address] [place] [address], [place] [address] Jul, [facility] [place] [address] [id number] [place] [id number] Jul, [facility] [place] [address] [id number] [place] [id number] Jul, [facility] [place] [address] [id number] [place] [id number] Jul, [facility] [address] [facility] [id number] [address] [place] [address], [place] [id number] May, [facility] [address] [facility] [id number] [address] [place] [address], [place] [phone] May, [facility] [address] [id number] [address] [place] [id number] May, [facility] [address] [id number] [address] [place] [id number] Apr, [facility] [address] [id number] [address] [place] [id number] Jan, [facility] [address] [id number] [address] [place] [id number] Jan, [facility] [address] [id number] [address] [place] [id number] Dec, [facility] [address] [id number] [address] [place] [id number] Dec, [facility] [address] [id number] [address] [place] [id number] 16 May, 2009 [facility] [address] [id number] [address] [place] [phone] Mar, [facility] [address] [id number] [address] [place] [id number] Mar, [facility] [address] [id number] [address] [place] [id number] Jan, IMMUNIZATIONS No Known Immunizations SOCIAL HISTORY Never Assessed REASON FOR VISIT [facility] PLAN OF CARE VITAL SIGNS MEDICATIONS [id number] [...]
--- OUTSIDE RECORDS SUMMARY | 2020-01-28 13:02 | XMS REPORT ---
Author Author Heydi Candelario Doctor Organization [facility] Address Unknown Phone Unavailable Care Team Providers Care Machining Supervisor Name Role Phone Migration, Doctor Unavailable Unavailable PROBLEMS Type Condition ICD9-CM Code [id number] Code Onset Dates Condition S tatus SNOMED Code Problem Chronic pain syndrome G89.4 Active 010828915 Problem Sore throat J02.9 Active 58424727 3 Problem Choriocarcinoma C58 Active 1881 06354 Problem longterm current use of anticoagulant Z79.01 Active 565876226 Problem History of venous thromboembolism V12.51 Active 066447466 Problem Cellulitis of unspecified part of limb L03.119 Active 029891001 Problem Gastroesophageal reflux disease without esophagitis K21.9 Active 785748215 Problem History of pulmonary embolism Z86.711 Active 948801685 Problem Pseudotumor cerebri G93.2 Active 95101138 Problem History of DVT (deep vein thrombosis) Z86.718 Active 842815521 ALLERGIES No Information ENCOUNTERS Encounter Location Date Diagnosis [place] [address] [address] [facility] [id number] [address] [place] [address] Apr, termination clerk (current) use of 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 Z79.01 [place] [facility] [id number] [address] [place] [address] Apr, termination clerk 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.01 [place] [address] [facility] [id number] [address] [place] [address] Apr, Cellulitis of unspecified pa rt of limb L03.119 ; Allergic contact dermatitis due to adhesives L23.1 and Chronic pain syndrome G89.4 [facility] [address] [facility] [id number] [address] [place] [address] Apr, [place] [address] [address] [facility] [id number] [address] [place] [address] Apr, longterm 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.01 ; Cellulitis of unspecified part of limb L03.119 ; Chronic pain syndrome G89.4 and Anxiety F41.9 [place] [address] [address] [place] [id number] [address] [place] [address] 16 Apr, 2015 [place] [address] [address] [place] [id number] [place] [address] Apr, [place] [address] [address] Mar, [place] [address] [address] [place] [id number] [place] [address] Mar, [place] [address] [address] Mar, Sore throat J02.9 ; Gastroes ophageal reflux disease without esophagitis K21.9 ; Pseudotumor cerebri G93.2 ; Chronic pain syndrome G89.4 ; Choriocarcinoma C58 ; History of pulmonary embolism Z86.711 ; History of DVT (deep vein thrombosis) Z86.718 ; Anxiety F41.9 and Tachycardia R00.0 [place] [address] [address] Feb, Anxiety 300.00 and Chronic p ain 338.29 [place] [address] [address] [place] [id number] [address] [place] [address] Feb, [place] [id number] [place] [address] Feb, [place] [address] [address] [place] [id number] [place] [address] Jan, longterm current use of ant icoagulant therapy V58.61 and Dysuria 788.1 [place] [address] [address] [place] [id number] [address] [place] [address] Jan, Dysuria 788.1 [place] [address] [address] [place] [id number] [place] [address] Jan, Anxiety 300.00 and Chronic p ain 338.29 [place] [address] [address] Jan, [facility] [address] [address] Jan, [place] [address] [address] Jan, [place] [address] [address] Dec, Weakness 780.79 [place] [address] [address] Dec, termination clerk current use of ant icoagulant therapy V58.61 [place] [address] [address] Dec, Palpitations 785.1 ; Tremor 781.0 ; Weakness 780.79 ; longterm current use of anticoagulant therapy V58.61 and Yeast vaginitis 112.1 [place] [address] [address] Dec, [place] [address] [address] Dec, Cervicalgia 723.1 ; Tachycar yoseph 785.0 ; Pseudotumor cerebri 348.2 and History of venous thromboembolism V12.51 [place] [address] [address] [place] [id number] [address] [place] [address] Nov, [place] [address] [address] Nov, [place] [address] [address] Nov, Tachycardia 785.0 ; Pseudotu mor cerebri 348.2 ; Anxiety 300.00 and History of venous thromboembolism V12.51 [facility] [address] [id number] [address] [place] [address], [place] [address] Nov, [facility] [address] [id number] [address] [place] [address], [place] [address] 18 Nov, 2014 [facility] [address] [id number] [address] [place] [address], [place] [address] 16 Nov, 2014 [facility] [address] [id number] [address] [place] [address], [place] [address] Nov, [facility] [address] [id number] [address] [place] [address], [place] [address] Nov, [facility] [address] [id number] [address] [place] [address], [place] [address] Nov, [facility] [address] [id number] [address] [place] [address], [place] [address] Nov, [facility] [address] [id number] [address] [place] [address] October, [facility] [address] [id number] [address] [place] [address] October, [facility] [address] [id number] [address] [place] [address] October, Pain in thoracic spine 724.1 and Tachycardia 785.0 [facility] [address] [id number] [address] [place] [address] October, [facility] [address] [id number] [address] [place] [address] October, [facility] [address] [id number] [address] [place] [address] Sep, [facility] [address] [id number] [address] [place] [address] Sep, [facility] [address] [id number] [address] [place] [address] Aug, [facility] [address] [id number] [address] [place] [address], [place] [address] Aug, [facility] [address] [id number] [address] [place] [address], [place] [address] Aug, [facility] [address] [id number] [address] [place] [address], [place] [address] 17 Aug, 2014 [facility] [address] [id number] [address] [place] [address], [place] [address] Aug, [facility] [address] [id number] [address] [place] [address], [place] [address] 16 Aug, 2014 [facility] [address] [id number] [address] [place] [address], [place] [address] Aug, [facility] [address] [id number] [address] [place] [address], [place] [address] Aug, [facility] [address] [id number] [address] [place] [address], [place] [address] Aug, 2014 [facility] [address] [id number] [address] [place] [address], [place] [address] Aug, [facility] [address] [id number] [address] [place] [address], [place] [address] Aug, [facility] [address] [id number] [address] [place] [address], [place] [address] Aug, [facility] [address] [id number] [address] [place] [address], [place] [address] Jul, 2014 [facility] [address] [id number] [address] [place] [address], [place] [address] Jul, 2014 [facility] [address] [id number] [address] [place] [address], [place] [address] Jul, 2014 [facility] [address] [id number] [address] [place] [address], [place] [address] Jul, 2014 [facility] [address] [id number] [address] [place] [address], [place] [address] b, 2014 [facility] [address] [id number] [address] [place] [address], [place] [address] 23 Jul, 2014 [facility] [address] [id number] [address] [place] [address], [place] [address] 23 Jul, 2014 [facility] [address] [id number] [address] [place] [address], [place] [address] 23 Jul, 2014 [facility] [address] [id number] [address] [place] [address], [place] [address] 20 Jul, 2014 [facility] [address] [id number] [address] [place] [address], [place] [address] 20 Jul, 2014 [facility] [address] [id number] [address] [place] [address], [place] [address] 19 Jul, 2014 [facility] [address] [id number] [address] [place] [address], [place] [address] 19 Jul, 2014 [facility] [address] [id number] [address] [place] [address], [place] [address] 17 Jul, 2014 [facility] [address] [id number] [address] [place] [address], [place] [address] 17 Jul, 2014 [facility] [address] [id number] [address] [place] [address], [place] [address] 16 Jul, 2014 [facility] [address] [id number] [address] [place] [address], [place] [address] 16 Jul, 2014 [facility] [address] [id number] [address] [place] [address], [place] [address] 16 Jul, 2014 [facility] [address] [id number] [address] [place] [address], [place] [address] 16 Jul, 2014 [facility] [address] [id number] [address] [place] [address], [place] [address] 13 Jul, 2014 [facility] [address] [id number] [address] [place] [address], [place] [address] Jul, 2014 [facility] [address] [id number] [address] [place] [address], [place] [address] Jul, 2014 [facility] [address] [id number] [address] [place] [address], [place] [address] Jul, 2014 [facility] [address] [id number] [address] [place] [address], [place] [address] Jul, 2014 [facility] [address] [id number] [address] [place] [address], [place] [address] Jul, 2014 [facility] [address] [id number] [address] [place] [address], [place] [address] Jul, [facility] [address] [id number] [address] [place] [address], [place] [address] Jul, [facility] [address] [id number] [address] [place] [address], [place] [address] Jul, [facility] [address] [id number] [address] [place] [address], [place] [address] Jul, [facility] [address] [id number] [address] [place] [address], [place] [address] Jul, [facility] [address] [id number] [address] [place] [address], [place] [address] Jul, [facility] [address] [id number] [address] [place] [address], [place] [address] Jun, [facility] [address] [id number] [address] [place] [address], [place] [address] Jun, [facility] [address] [id number] [address] [place] [address], [place] [address] Jun, [facility] [address] [id number] [address] [place] [address], [place] [address] Jun, [facility] [address] [id number] [address] [place] [address], [place] [address] Jun, [facility] [address] [id number] [address] [place] [address], [place] [address] Jun, [facility] [address] [id number] [address] [place] [address], [place] [address] Jun, [facility] [address] [id number] [address] [place] [address], [place] [address] Jun, [facility] [address] [id number] [address] [place] [address], [place] [address] Jun, [facility] [address] [id number] [address] [place] [address], [place] [address] Jun, [facility] [address] [id number] [address] [place] [address], [place] [address] Jun, [facility] [address] [id number] [address] [place] [address], [place] [address] Jun, [facility] [address] [id number] [address] [place] [address], [place] [address] Jun, [facility] [address] [id number] [address] [place] [address], [place] [address] Jun, [facility] [address] [id number] [address] [place] [address], [place] [address] Jun, [facility] [address] [id number] [address] [place] [address], [place] [address] Jun, [facility] [address] [id number] [address] [place] [address], [place] [address] Jun, [facility] [address] [id number] [address] [place] [address], [place] [address] Jun, [facility] [address] [id number] [address] [place] [address], [place] [address] Jun, [facility] [address] [id number] [address] [place] [address], [place] [address] Jun, [facility] [address] [id number] [address] [place] [address], [place] [address] May, [facility] [address] [id number] [address] [place] [address], [place] [address] May, [facility] [address] [id number] [address] [place] [address], [place] [address] May, [facility] [address] [id number] [address] [place] [address], [place] [address] May, [facility] [address] [id number] [address] [place] [address], [place] [address] May, [facility] [address] [id number] [address] [place] [address], [place] [address] May, [facility] [address] [id number] [address] [place] [address], [place] [address] May, [facility] [address] [id number] [address] [place] [address], [place] [address] May, [facility] [address] [id number] [address] [place] [address], [place] [address] May, [facility] [address] [id number] [address] [place] [address], [place] [address] May, [facility] [address] [id number] [address] [place] [address], [place] [address] May, [facility] [address] [id number] [address] [place] [address], [place] [address] 18 May, 2014 [facility] [address] [id number] [address] [place] [address], [place] [address] 18 May, 2014 [facility] [address] [id number] [address] [place] [address], [place] [address] 17 May, 2014 [facility] [address] [id number] [address] [place] [address], [place] [address] 16 May, 2014 [facility] [address] [id number] [address] [place] [address], [place] [address] 16 May, 2014 [facility] [address] [id number] [address] [place] [address], [place] [address] 15 May, 2014 [facility] [address] [id number] [address] [place] [address], [place] [address] 15 May, 2014 [facility] [address] [id number] [address] [place] [address], [place] [address] May, [facility] [address] [id number] [address] [place] [address], [place] [address] May, [facility] [address] [id number] [address] [place] [address], [place] [address] May, [facility] [address] [id number] [address] [place] [address], [place] [address] May, [facility] [address] [id number] [address] [place] [address], [place] [address] May, [facility] [address] [id number] [address] [place] [address], [place] [address] May, [facility] [address] [id number] [address] [place] [address], [place] [address] May, [facility] [address] [id number] [address] [place] [address], [place] [address] May, [facility] [address] [id number] [address] [place] [address], [place] [address] May, [facility] [address] [id number] [address] [place] [address], [place] [address] May, [facility] [address] [id number] [address] [place] [address], [place] [address] May, [facility] [address] [id number] [address] [place] [address], [place] [address] May, [facility] [address] [id number] [address] [place] [address], [place] [address] May, [facility] [address] [id number] [address] [place] [address], [place] [address] May, [facility] [address] [id number] [address] [place] [address], [place] [address] May, [facility] [address] [id number] [address] [place] [address], [place] [address] May, [facility] [address] [id number] [address] [place] [address], [place] [address] Apr, [facility] [address] [id number] [address] [place] [address], [place] [address] Apr, [facility] [address] [id number] [address] [place] [address], [place] [address] Apr, [facility] [address] [id number] [address] [place] [address], [place] [address] Apr, [facility] [address] [id number] [address] [place] [address], [place] [address] Apr, [facility] [address] [id number] [address] [place] [address], [place] [address] Apr, [facility] [address] [id number] [address] [place] [address], [place] [address] Apr, [facility] [address] [id number] [address] [place] [address], [place] [address] Apr, [facility] [address] [id number] [address] [place] [address], [place] [address] Apr, [facility] [address] [id number] [address] [place] [address], [place] [address] Apr, [facility] [address] [id number] [address] [place] [address], [place] [address] Mar, [facility] [address] [id number] [address] [place] [address], [place] [address] Mar, [facility] [address] [id number] [address] [place] [address], [place] [address] Mar, [facility] [address] [id number] [address] [place] [address], [place] [address] 31 Mar, 2013 [facility] [address] [id number] [address] [place] [address], [place] [address] 30 Mar, 2013 [facility] [address] [id number] [address] [place] [address], [place] [address] 30 Mar, 2014 [facility] [address] [id number] [address] [place] [address], [place] [address] Mar, 2013 [facility] [address] [id number] [address] [place] [address], [place] [address] 17 Mar, 2013 [facility] [address] [id number] [address] [place] [address], [place] [address] 15 Mar, 2014 [facility] [address] [id number] [address] [place] [id number] 15 Mar, 2014 [facility] [address] [id number] [address] [place] [address], [place] [address] 15 Mar, 2014 [facility] [address] [id number] [address] [place] [id number] Mar, [facility] [address] [id number] [address] [place] [address], [place] [address] Mar, [facility] [address] [id number] [address] [place] [id number] Mar, [facility] [address] [id number] [address] [place] [id number] Mar, [facility] [address] [id number] [address] [place] [id number] Mar, 2013 [facility] [address] [id number] [address] [place] [address], [place] [address] Mar, [facility] [address] [id number] [address] [place] [id number] Mar, [facility] [address] [id number] [address] [place] [id number] Mar, 2013 [facility] [address] [id number] [address] [place] [address], [place] [address] 02 Mar, 2013 [facility] [address] [id number] [address] [place] [address], [place] [address] 05 Sep, 2013 [facility] [address] [id number] [address] [place] [address], [place] [address] 05 Sep, 2013 [facility] [address] [id number] [address] [place] [address], [place] [address] 04 Sep, 2013 [facility] [address] [id number] [address] [place] [address], [place] [address] 04 Sep, 2013 [facility] [address] [id number] [address] [place] [address], [place] [address] 03 Feb, 2013 [facility] [address] [id number] [address] [place] [address], [place] [address] Feb, 2013 [facility] [address] [id number] [address] [place] [address], [place] [address] Feb, 2013 [facility] [address] [id number] [address] [place] [address], [place] [address] Feb, 2013 [facility] [address] [id number] [address] [place] [address], [place] [address] Feb, 2013 [facility] [address] [id number] [address] [place] [address], [place] [address] Feb, 2013 [facility] [address] [id number] [address] [place] [address], [place] [address] Jan, [facility] [address] [id number] [address] [place] [address], [place] [address] Jan, [facility] [address] [id number] [address] [place] [address], [place] [address] Jan, [facility] [address] [id number] [address] [place] [address], [place] [address] Jan, [facility] [address] [id number] [address] [place] [address], [place] [address] Jan, [facility] [address] [id number] [address] [place] [address], [place] [address] Jan, [facility] [address] [id number] [address] [place] [address], [place] [address] Jan, [facility] [address] [id number] [address] [place] [address], [place] [address] Jan, [facility] [address] [id number] [address] [place] [address], [place] [address] Jan, [facility] [address] [id number] [address] [place] [address], [place] [address] Jan, [facility] [address] [id number] [address] [place] [address], [place] [address] Jan, [facility] [address] [id number] [address] [place] [address], [place] [address] Jan, [facility] [address] [id number] [address] [place] [address], [place] [address] Dec, [facility] [address] [id number] [address] [place] [address], [place] [address] Dec, [facility] [address] [id number] [address] [place] [address], [place] [address] Dec, [facility] [address] [id number] [address] [place] [address], [place] [address] Dec, [facility] [address] [id number] [address] [place] [address], [place] [address] Dec, [facility] [address] [id number] [address] [place] [address], [place] [address] Dec, [facility] [address] [id number] [address] [place] [address], [place] [address] Dec, [facility] [address] [id number] [address] [place] [address], [place] [address] Dec, [facility] [address] [id number] [address] [place] [address], [place] [address] Dec, [facility] [address] [id number] [address] [place] [address], [place] [address] Dec, [facility] [address] [id number] [address] [place] [address], [place] [address] Dec, [facility] [address] [id number] [address] [place] [address], [place] [address] Dec, [facility] [address] [id number] [address] [place] [address], [place] [address] Nov, [facility] [address] [id number] [address] [place] [address], [place] [address] Nov, [facility] [address] [id number] [address] [place] [address], [place] [address] Nov, [facility] [address] [id number] [address] [place] [address], [place] [address] Nov, [facility] [address] [id number] [address] [place] [address], [place] [address] Nov, [facility] [address] [id number] [address] [place] [address], [place] [address] Nov, [facility] [address] [id number] [address] [place] [address], [place] [address] Nov, [facility] [address] [id number] [address] [place] [address], [place] [address] Nov, [facility] [address] [id number] [address] [place] [address] Nov, [facility] [address] [id number] [address] [place] [address], [place] [address] Nov, [facility] [address] [id number] [address] [place] [address], [place] [address] Nov, [facility] [address] [id number] [address] [place] [address], [place] [address] Nov, [facility] [address] [id number] [address] [place] [address], [place] [address] Nov, [facility] [address] [id number] [address] [place] [address], [place] [address] Nov, [facility] [address] [id number] [address] [place] [address], [place] [address] October, [facility] [address] [id number] [address] [place] [address], [place] [address] October, [facility] [address] [id number] [address] [place] [address], [place] [address] October, [facility] [address] [id number] [address] [place] [address], [place] [address] October, [facility] [address] [id number] [address] [place] [address], [place] [address] October, [facility] [address] [id number] [address] [place] [address], [place] [address] October, [facility] [address] [id number] [address] [place] [address], [place] [address] October, [facility] [address] [id number] [address] [place] [address], [place] [address] October, [facility] [address] [id number] [address] [place] [address], [place] [address] October, [facility] [address] [id number] [address] [place] [address], [place] [address] October, [facility] [address] [id number] [address] [place] [address], [place] [address] October, [facility] [address] [id number] [address] [place] [address], [place] [address] October, [facility] [address] [id number] [address] [place] [address], [place] [address] Sep, [facility] [address] [id number] [address] [place] [address], [place] [address] Sep, [facility] [address] [id number] [facility] [address] Sep, [facility] [address] [id number] [address] [place] [address], [place] [address] Sep, [facility] [address] [id number] [address] [place] [address], [place] [address] Sep, [facility] [address] [id number] [address] [place] [address], [place] [address] Sep, [facility] [address] [id number] [address] [place] [address], [place] [address] Aug, [facility] [address] [id number] [address] [place] [address], [place] [address] Aug, [facility] [address] [id number] [address] [place] [address], [place] [address] Aug, [facility] [address] [id number] [address] [place] [address], [place] [address] Aug, [facility] [address] [id number] [address] [place] [address], [place] [address] Aug, [facility] [address] [id number] [address] [place] [address], [place] [address] Aug, [facility] [address] [id number] [address] [place] [address], [place] [address] Jul, [facility] [address] [id number] [address] [place] [address], [place] [address] Jul, [facility] [address] [id number] [address] [place] [address], [place] [address] Jul, [facility] [address] [id number] [address] [place] [address], [place] [address] Jul, [facility] [address] [id number] [address] [place] [address], [place] [address] Jul, [facility] [address] [id number] [address] [place] [address], [place] [address] 13 Jul, 2013 [facility] [address] [id number] [address] [place] [address], [place] [address] Jul, [facility] [address] [id number] [address] [place] [address], [place] [address] Jul, [facility] [address] [id number] [address] [place] [address], [place] [address] Jul, [facility] [address] [id number] [address] [place] [address], [place] [address] Jul, [facility] [address] [id number] [address] [place] [address], [place] [address] Jun, [facility] [address] [id number] [address] [place] [address], [place] [address] Jun, [facility] [address] [id number] [address] [place] [address], [place] [address] Jun, [facility] [address] [id number] [address] [place] [address], [place] [address] Jun, [facility] [address] [id number] [address] [place] [address], [place] [address] Jun, [facility] [address] [id number] [address] [place] [address], [place] [address] Jun, [facility] [address] [id number] [address] [place] [address], [place] [address] Jun, [facility] [address] [id number] [address] [place] [address], [place] [address] Jun, [facility] [address] [id number] [address] [place] [address], [place] [address] May, [facility] [address] [id number] [address] [place] [address], [place] [address] May, [facility] [address] [id number] [address] [place] [address] [address] May, [facility] [address] [id number] [address] [place] [address], [place] [address] May, [facility] [address] [id number] [address] [place] [address], [place] [address] May, [facility] [address] [id number] [address] [place] [address], [place] [address] May, [facility] [address] [id number] [address] [place] [address], [place] [address] May, [facility] [address] [id number] [address] [place] [address], [place] [address] May, [facility] [address] [id number] [address] [place] [address], [place] [address] Apr, [facility] [address] [id number] [address] [place] [address], [place] [address] Apr, [facility] [address] [id number] [address] [place] [address] Apr, [facility] [address] [id number] [address] [place] [address] Apr, [facility] [address] [id number] [address] [place] [address] Apr, [facility] [address] [id number] [address] [place] [address] Apr, [facility] [address] [id number] [address] [place] [address] Mar, [facility] [address] [id number] [address] [place] [address] Mar, [facility] [address] [id number] [address] [place] [address] Mar, [facility] [address] [id number] [address] [place] [address] Mar, [facility] [address] [id number] [address] [place] [address], [place] [address] Mar, [facility] [address] [id number] [address] [place] [address], [place] [address] Mar, [facility] [address] [id number] [address] [place] [address], [place] [address] Mar, [facility] [address] [id number] [address] [place] [address], [place] [address] 30 Feb, 2013 [facility] [address] [id number] [address] [place] [address], [place] [address] 30 Feb, 2013 [facility] [address] [id number] [address] [place] [address], [place] [address] 27 Feb, 2013 [facility] [address] [id number] [address] [place] [address], [place] [address] Feb, [facility] [address] [id number] [address] [place] [address], [place] [address] Feb, [facility] [address] [id number] [address] [place] [address], [place] [address] Feb, [facility] [address] [id number] [address] [place] [address], [place] [address] Jan, [facility] [address] [id number] [address] [place] [address], [place] [address] Jan, [facility] [address] [id number] [address] [place] [address], [place] [address] Jan, [facility] [address] [id number] [address] [place] [address], [place] [address] Jan, [facility] [address] [id number] [address] [place] [address], [place] [address] Jan, [facility] [address] [id number] [address] [place] [address], [place] [address] Jan, [facility] [address] [id number] [address] [place] [address], [place] [address] Jan, [facility] [address] [id number] [address] [place] [address], [place] [address] Jan, [facility] [address] [id number] [address] [place] [address], [place] [address] Jan, [facility] [address] [id number] [address] [place] [address], [place] [address] Dec, [facility] [address] [id number] [address] [place] [address], [place] [address] Dec, [facility] [address] [id number] [address] [place] [address], [place] [address] Dec, [facility] [address] [id number] [address] [place] [address], [place] [address] Dec, [facility] [address] [id number] [address] [place] [address], [place] [address] Dec, [facility] [address] [id number] [address] [place] [address], [place] [address] Dec, [facility] [address] [id number] [address] [place] [address], [place] [address] Dec, [facility] [address] [id number] [address] [place] [address], [place] [address] Dec, [facility] [address] [id number] [address] [place] [address], [place] [address] Dec, [facility] [address] [id number] [address] [place] [address], [place] [address] Dec, [facility] [address] [id number] [address] [place] [address], [place] [address] Dec, [facility] [address] [id number] [address] [place] [address], [place] [address] Dec, [facility] [address] [id number] [address] [place] [address], [place] [address] Dec, [facility] [address] [id number] [address] [place] [address], [place] [address] Nov, [facility] [address] [id number] [address] [place] [address], [place] [address] Nov, [facility] [address] [id number] [address] [place] [address], [place] [address] Nov, [facility] [address] [id number] [address] [place] [address], [place] [address] Nov, [facility] [address] [id number] [address] [place] [address], [place] [address] October, [facility] [address] [id number] [address] [place] [address], [place] [address] October, [facility] [address] [id number] [address] [place] [address], [place] [address] October, [facility] [address] [id number] [address] [place] [address], [place] [address] October, [facility] [address] [id number] [address] [place] [address], [place] [address] October, [facility] [address] [id number] [address] [place] [address], [place] [address] October, [facility] [address] [id number] [address] [place] [address], [place] [address] 30 Sep, 2012 [facility] [address] [id number] [address] [place] [address], [place] [address] 29 Sep, 2012 [facility] [address] [id number] [address] [place] [address], [place] [address] 27 Sep, 2012 [facility] [address] [id number] [address] [place] [address], [place] [address] 23 Sep, 2012 [facility] [address] [id number] [address] [place] [address], [place] [address] Sep, [facility] [address] [id number] [address] [place] [address], [place] [address] 16 Sep, 2012 [facility] [address] [id number] [facility] [address] 12 Sep, 2012 [facility] [address] [id number] [address] [place] [address], [place] [address] Sep, [facility] [address] [id number] [address] [place] [address], [place] [address] Sep, [facility] [address] [id number] [address] [place] [address], [place] [address] Sep, [facility] [address] [id number] [address] [place] [address], [place] [address] Sep, [facility] [address] [id number] [address] [place] [address], [place] [address] Aug, [facility] [address] [id number] [address] [place] [address], [place] [address] Aug, [facility] [address] [id number] [address] [place] [address], [place] [address] 25 Aug, 2012 [facility] [address] [id number] [address] [place] [address], [place] [address] 21 Aug, 2012 [facility] [address] [id number] [address] [place] [address], [place] [address] 19 Aug, 2012 [facility] [address] [id number] [address] [place] [address], [place] [address] 18 Aug, 2012 [facility] [address] [id number] [address] [place] [address], [place] [address] 17 Aug, 2012 [facility] [address] [id number] [address] [place] [address], [place] [address] 15 Aug, 2012 [facility] [address] [id number] [address] [place] [address], [place] [address] 15 Aug, 2012 [facility] [address] [id number] [address] [place] [address], [place] [address] 11 Aug, 2012 [facility] [address] [id number] [address] [place] [address], [place] [address] Aug, [facility] [address] [id number] [address] [place] [address], [place] [address] Aug, [facility] [address] [id number] [address] [place] [address], [place] [address] Jul, [facility] [address] [id number] [address] [place] [address], [place] [address] Jul, [facility] [address] [id number] [address] [place] [address], [place] [address] Jul, [facility] [address] [id number] [address] [place] [address], [place] [address] Jul, [facility] [address] [id number] [address] [place] [address], [place] [address] Jul, [facility] [address] [id number] [address] [place] [address], [place] [address] Jul, [facility] [address] [id number] [address] [place] [address], [place] [address] Jul, [facility] [address] [id number] [address] [place] [address], [place] [address] Jul, [facility] [address] [id number] [address] [place] [address], [place] [address] Jul, [facility] [address] [id number] [address] [place] [address] Jul, [facility] [address] [id number] [address] [place] [address] May, [facility] [address] [id number] [place] [id number] May, [facility] [address] [id number] [address] [place] [address] May, [facility] [address] [id number] [address] [place] [address], [place] [address] 14 May, 2012 [facility] [address] [id number] [address] [place] [address], [place] [address] May, [facility] [address] [id number] [address] [place] [address], [place] [address] Apr, [facility] [place] [address] [id number] [place] [id number] Apr, [facility] [address] [facility] [id number] [address] [place] [address], [place] [address] Apr, [facility] [address] [facility] [id number] [address] [place] [address], [place] [address] Mar, [facility] [address] [id number] [place] [id number] Mar, [facility] [address] [facility] [id number] [address] [place] [address], [place] [address] Mar, [facility] [place] [address] [id number] [place] [id number] Feb, [facility] [address] [facility] [id number] [address] [place] [address], [place] [address] Feb, [facility] [address] [facility] [id number] [address] [place] [address], [place] [address] Feb, [facility] [address] [id number] [place] [id number] Feb, [facility] [address] [id number] [place] [id number] Feb, [facility] [address] [id number] [place] [id number] Jan, [facility] [address] [id number] [address] [place] [address], [place] [address] Jan, [facility] [address] [id number] [place] [id number] Jan, [facility] [address] [id number] [place] [id number] Jan, [facility] [address] [id number] [place] [id number] Jan, [facility] [address] [id number] [address] [place] [address], [place] [address] Jan, [facility] [address] [facility] [id number] [address] [place] [address], [place] [address] Jan, [facility] [address] [facility] [id number] [address] [place] [address], [place] [address] Aug, [facility] [address] [facility] [id number] [place] [id number] Aug, [facility] [address] [facility] [id number] [address] [place] [address], [place] [address] Jul, [facility] [address] [facility] [id number] [address] [place] [address], [place] [address] Jul, [facility] [address] [facility] [id number] [address] [place] [address], [place] [address] Jul, [facility] [address] [facility] [id number] [place] [id number] Jul, [facility] [address] [facility] [id number] [address] [place] [address], [place] [address] Jul, [facility] [address] [facility] [id number] [place] [id number] Jul, [facility] [address] [facility] [id number] [address] [place] [address], [place] [address] Jul, [facility] [address] [id number] [place] [id number] Jul, [facility] [address] [id number] [place] [id number] Jul, [facility] [address] [id number] [place] [id number] Jul, [facility] [address] [facility] [id number] [address] [place] [address], [place] [address] May, [facility] [address] [facility] [id number] [address] [place] [address], [place] [address] May, [facility] [address] [id number] [address] [place] [id number] May, [facility] [address] [id number] [address] [place] [id number] Apr, [facility] [address] [id number] [address] [place] [id number] Jan, [facility] [address] [id number] [address] [place] [id number] Jan, [facility] [address] [id number] [address] [place] [address] Dec, [facility] [address] [id number] [address] [place] [id number] Dec, [facility] [address] [id number] [address] [place] [id number] 16 May, 2009 [facility] [address] [id number] [address] [place] [id number] Mar, [facility] [address] [id number] [address] [place] [id number] Mar, [facility] [address] [id number] [address] [place] [id number] Jan, IMMUNIZATIONS No Known Immunizations SOCIAL HISTORY Never Assessed REASON FOR VISIT [facility] [place]AN OF CARE VITAL SIGNS MEDICATIONS Unknown [...]
--- OUTSIDE RECORDS SUMMARY | 2020-01-28 13:02 | XMS REPORT ---
Author Author Heydi Candelario Doctor Organization [facility] Address Unknown Phone Unavailable Care Team Providers Care Appellate Law Clerk Name Role Phone Migration, Doctor Unavailable Unavailable PROBLEMS Type Condition ICD9-CM Code QOM12-NS Code Onset Dates Condition S tatus SNOMED Code Problem Chronic pain syndrome G89.4 Active 820764468 Problem Sore throat J02.9 Active 75165931 3 Problem Choriocarcinoma C58 Active 1881 32487 Problem jail current use of anticoagulant Z79.01 Active 280954761 Problem History of venous thromboembolism V12.51 Active 786796487 Problem Cellulitis of unspecified part of limb L03.119 Active 445941849 Problem Gastroesophageal reflux disease without esophagitis K21.9 Active 494224016 Problem History of pulmonary embolism Z86.711 Active 621438234 Problem Pseudotumor cerebri G93.2 Active 17052888 Problem History of DVT (deep vein thrombosis) Z86.718 Active [id number] ALLERGIES No Information ENCOUNTERS Encounter Location Date Diagnosis [place] [address] [address] [facility] [id number] [address] [place] [address] Apr, meterman (current) use of 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 Z79.01 [place] [id number] [facility] [id number] [address] [place] [address] Apr, meterman 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.01 [place] [id number] [facility] [id number] [address] [place] [address] Apr, Cellulitis of unspecified pa rt of limb L03.119 ; Allergic contact dermatitis due to adhesives L23.1 and Chronic pain syndrome G89.4 [facility] [address] [facility] [id number] [address] [place] [address] Apr, [place] [address] [facility] [id number] [address] [place] [address] Apr, jail 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.01 ; Cellulitis of unspecified part of limb L03.119 ; Chronic pain syndrome G89.4 and Anxiety F41.9 [place] [address] [place] [id number] [address] [place] [address] 16 Apr, 2015 [place] [address] [place] [id number] [place] [address] Apr, [place] [address] [address] Mar, [place] [address] [place] [id number] [place] [address] Mar, [place] [address] [address] Mar, Sore throat J02.9 ; Gastroes ophageal reflux disease without esophagitis K21.9 ; Pseudotumor cerebri G93.2 ; Chronic pain syndrome G89.4 ; Choriocarcinoma C58 ; History of pulmonary embolism Z86.711 ; History of DVT (deep vein thrombosis) Z86.718 ; Anxiety F41.9 and Tachycardia R00.0 [place] [address] [address] Feb, Anxiety 300.00 and Chronic p ain 338.29 [place] [address] [address] [place] [id number] [address] [place] [address] Feb, [place] [id number] [place] [address] Feb, [place] [address] [place] [id number] [place] [address] Jan, jail current use of ant icoagulant therapy V58.61 and Dysuria 788.1 [place] [address] [place] [id number] [address] [place] [address] Jan, Dysuria 788.1 [place] [address] [place] [id number] [place] [address] Jan, Anxiety 300.00 and Chronic p ain 338.29 [place] [address] [address] Jan, [facility] [address] [address] Jan, [place] [address] [address] Jan, [place] [address] [address] Dec, Weakness 780.79 [place] [address] [address] Dec, meterman current use of ant icoagulant therapy V58.61 [place] [address] [address] Dec, Palpitations 785.1 ; Tremor 781.0 ; Weakness 780.79 ; jail current use of anticoagulant therapy V58.61 and Yeast vaginitis 112.1 [place] [address] [address] Dec, [place] [address] [address] Dec, Cervicalgia 723.1 ; Tachycar yoseph 785.0 ; Pseudotumor cerebri 348.2 and History of venous thromboembolism V12.51 [place] [address] [address] [place] [id number] [address] [place] [address] Nov, [place] [address] [address] Nov, [place] [address] [address] Nov, Tachycardia 785.0 ; Pseudotu mor cerebri 348.2 ; Anxiety 300.00 and History of venous thromboembolism V12.51 [facility] [address] [id number] [address] [place] [address], [place] [address] Nov, [facility] [address] [id number] [address] [place] [address], [place] [address] 18 Nov, 2014 [facility] [address] [id number] [address] [place] [address], [place] [address] 16 Nov, 2014 [facility] [address] [id number] [address] [place] [address], [place] [address] Nov, [facility] [address] [id number] [address] [place] [address], [place] [address] Nov, [facility] [address] [id number] [address] [place] [address], [place] [address] Nov, [facility] [address] [id number] [address] [place] [address], [place] [address] Nov, [facility] [address] [id number] [address] [place] [address] October, [facility] [address] [id number] [address] [place] [address] October, [facility] [address] [id number] [address] [place] [address] October, Pain in thoracic spine 724.1 and Tachycardia 785.0 [facility] [address] [id number] [address] [place] [address] October, [facility] [address] [id number] [address] [place] [address] October, [facility] [address] [id number] [address] [place] [address] Sep, [facility] [address] [id number] [address] [place] [address] Sep, [facility] [address] [id number] [address] [place] [address] Aug, [facility] [address] [id number] [address] [place] [address], [place] [address] Aug, [facility] [address] [id number] [address] [place] [address], [place] [address] Aug, [facility] [address] [id number] [address] [place] [address], [place] [address] 17 Aug, 2014 [facility] [address] [id number] [address] [place] [address], [place] [address] Aug, [facility] [address] [id number] [address] [place] [address], [place] [address] 16 Aug, 2014 [facility] [address] [id number] [address] [place] [address], [place] [address] Aug, [facility] [address] [id number] [address] [place] [address], [place] [address] Aug, [facility] [address] [id number] [address] [place] [address], [place] [address] Aug, 2014 [facility] [address] [id number] [address] [place] [address], [place] [address] Aug, [facility] [address] [id number] [address] [place] [address], [place] [address] Aug, [facility] [address] [id number] [address] [place] [address], [place] [address] Aug, [facility] [address] [id number] [address] [place] [address], [place] [address] Jul, 2014 [facility] [address] [id number] [address] [place] [address], [place] [address] Jul, 2014 [facility] [address] [id number] [address] [place] [address], [place] [address] Jul, 2014 [facility] [address] [id number] [address] [place] [address], [place] [address] Jul, 2014 [facility] [address] [id number] [address] [place] [address], [place] [address] b, 2014 [facility] [address] [id number] [address] [place] [address], [place] [address] 23 Jul, 2014 [facility] [address] [id number] [address] [place] [address], [place] [address] 23 Jul, 2014 [facility] [address] [id number] [address] [place] [address], [place] [address] 23 Jul, 2014 [facility] [address] [id number] [address] [place] [address], [place] [address] 20 Jul, 2014 [facility] [address] [id number] [address] [place] [address], [place] [address] 20 Jul, 2014 [facility] [address] [id number] [address] [place] [address], [place] [address] 19 Jul, 2014 [facility] [address] [id number] [address] [place] [address], [place] [address] 19 Jul, 2014 [facility] [address] [id number] [address] [place] [address], [place] [address] 17 Jul, 2014 [facility] [address] [id number] [address] [place] [address], [place] [address] 17 Jul, 2014 [facility] [address] [id number] [address] [place] [address], [place] [address] 16 Jul, 2014 [facility] [address] [id number] [address] [place] [address], [place] [address] 16 Jul, 2014 [facility] [address] [id number] [address] [place] [address], [place] [address] 16 Jul, 2014 [facility] [address] [id number] [address] [place] [address], [place] [address] 16 Jul, 2014 [facility] [address] [id number] [address] [place] [address], [place] [address] 13 Jul, 2014 [facility] [address] [id number] [address] [place] [address], [place] [address] Jul, 2014 [facility] [address] [id number] [address] [place] [address], [place] [address] Jul, 2014 [facility] [address] [id number] [address] [place] [address], [place] [address] Jul, 2014 [facility] [address] [id number] [address] [place] [address], [place] [address] Jul, 2014 [facility] [address] [id number] [address] [place] [address], [place] [address] Jul, 2014 [facility] [address] [id number] [address] [place] [address], [place] [address] Jul, [facility] [address] [id number] [address] [place] [address], [place] [address] Jul, [facility] [address] [id number] [address] [place] [address], [place] [address] Jul, [facility] [address] [id number] [address] [place] [address], [place] [address] Jul, [facility] [address] [id number] [address] [place] [address], [place] [address] Jul, [facility] [address] [id number] [address] [place] [address], [place] [address] Jul, [facility] [address] [id number] [address] [place] [address], [place] [address] Jun, [facility] [address] [id number] [address] [place] [address], [place] [address] Jun, [facility] [address] [id number] [address] [place] [address], [place] [address] Jun, [facility] [address] [id number] [address] [place] [address], [place] [address] Jun, [facility] [address] [id number] [address] [place] [address], [place] [address] Jun, [facility] [address] [id number] [address] [place] [address], [place] [address] Jun, [facility] [address] [id number] [address] [place] [address], [place] [address] Jun, [facility] [address] [id number] [address] [place] [address], [place] [address] Jun, [facility] [address] [id number] [address] [place] [address], [place] [address] Jun, [facility] [address] [id number] [address] [place] [address], [place] [address] Jun, [facility] [address] [id number] [address] [place] [address], [place] [address] Jun, [facility] [address] [id number] [address] [place] [address], [place] [address] Jun, [facility] [address] [id number] [address] [place] [address], [place] [address] Jun, [facility] [address] [id number] [address] [place] [address], [place] [address] Jun, [facility] [address] [id number] [address] [place] [address], [place] [address] Jun, [facility] [address] [id number] [address] [place] [address], [place] [address] Jun, [facility] [address] [id number] [address] [place] [address], [place] [address] Jun, [facility] [address] [id number] [address] [place] [address], [place] [address] Jun, [facility] [address] [id number] [address] [place] [address], [place] [address] Jun, [facility] [address] [id number] [address] [place] [address], [place] [address] Jun, [facility] [address] [id number] [address] [place] [address], [place] [address] May, [facility] [address] [id number] [address] [place] [address], [place] [address] May, [facility] [address] [id number] [address] [place] [address], [place] [address] May, [facility] [address] [id number] [address] [place] [address], [place] [address] May, [facility] [address] [id number] [address] [place] [address], [place] [address] May, [facility] [address] [id number] [address] [place] [address], [place] [address] May, [facility] [address] [id number] [address] [place] [address], [place] [address] May, [facility] [address] [id number] [address] [place] [address], [place] [address] May, [facility] [address] [id number] [address] [place] [address], [place] [address] May, [facility] [address] [id number] [address] [place] [address], [place] [address] May, [facility] [address] [id number] [address] [place] [address], [place] [address] May, [facility] [address] [id number] [address] [place] [address], [place] [address] 18 May, 2014 [facility] [address] [id number] [address] [place] [address], [place] [address] 18 May, 2014 [facility] [address] [id number] [address] [place] [address], [place] [address] 17 May, 2014 [facility] [address] [id number] [address] [place] [address], [place] [address] 16 May, 2014 [facility] [address] [id number] [address] [place] [address], [place] [address] 16 May, 2014 [facility] [address] [id number] [address] [place] [address], [place] [address] 15 May, 2014 [facility] [address] [id number] [address] [place] [address], [place] [address] 15 May, 2014 [facility] [address] [id number] [address] [place] [address], [place] [address] May, [facility] [address] [id number] [address] [place] [address], [place] [address] May, [facility] [address] [id number] [address] [place] [address], [place] [address] May, [facility] [address] [id number] [address] [place] [address], [place] [address] May, [facility] [address] [id number] [address] [place] [address], [place] [address] May, [facility] [address] [id number] [address] [place] [address], [place] [address] May, [facility] [address] [id number] [address] [place] [address], [place] [address] May, [facility] [address] [id number] [address] [place] [address], [place] [address] May, [facility] [address] [id number] [address] [place] [address], [place] [address] May, [facility] [address] [id number] [address] [place] [address], [place] [address] May, [facility] [address] [id number] [address] [place] [address], [place] [address] May, [facility] [address] [id number] [address] [place] [address], [place] [address] May, [facility] [address] [id number] [address] [place] [address], [place] [address] May, [facility] [address] [id number] [address] [place] [address], [place] [address] May, [facility] [address] [id number] [address] [place] [address], [place] [address] May, [facility] [address] [id number] [address] [place] [address], [place] [address] May, [facility] [address] [id number] [address] [place] [address], [place] [address] Apr, [facility] [address] [id number] [address] [place] [address], [place] [address] Apr, [facility] [address] [id number] [address] [place] [address], [place] [address] Apr, [facility] [address] [id number] [address] [place] [address], [place] [address] Apr, [facility] [address] [id number] [address] [place] [address], [place] [address] Apr, [facility] [address] [id number] [address] [place] [address], [place] [address] Apr, [facility] [address] [id number] [address] [place] [address], [place] [address] Apr, [facility] [address] [id number] [address] [place] [address], [place] [address] Apr, [facility] [address] [id number] [address] [place] [address], [place] [address] Apr, [facility] [address] [id number] [address] [place] [address], [place] [address] Apr, [facility] [address] [id number] [address] [place] [address], [place] [address] Mar, [facility] [address] [id number] [address] [place] [address], [place] [address] Mar, [facility] [address] [id number] [address] [place] [address], [place] [address] Mar, [facility] [address] [id number] [address] [place] [address], [place] [address] 31 Mar, 2013 [facility] [address] [id number] [address] [place] [address], [place] [address] 30 Mar, 2013 [facility] [address] [id number] [address] [place] [address], [place] [address] 30 Mar, 2014 [facility] [address] [id number] [address] [place] [address], [place] [address] Mar, 2013 [facility] [address] [id number] [address] [place] [address], [place] [address] 17 Mar, 2013 [facility] [address] [id number] [address] [place] [address], [place] [address] 15 Mar, 2014 [facility] [address] [id number] [address] [place] [id number] 15 Mar, 2014 [facility] [address] [id number] [address] [place] [address], [place] [address] 15 Mar, 2014 [facility] [address] [id number] [address] [place] [id number] Mar, [facility] [address] [id number] [address] [place] [address], [place] [address] Mar, [facility] [address] [id number] [address] [place] [id number] Mar, [facility] [address] [id number] [address] [place] [id number] Mar, [facility] [address] [id number] [address] [place] [id number] Mar, 2013 [facility] [address] [id number] [address] [place] [address], [place] [address] Mar, [facility] [address] [id number] [address] [place] [id number] Mar, [facility] [address] [id number] [address] [place] [id number] Mar, 2013 [facility] [address] [id number] [address] [place] [address], [place] [address] 02 Mar, 2013 [facility] [address] [id number] [address] [place] [address], [place] [address] 05 Sep, 2013 [facility] [address] [id number] [address] [place] [address], [place] [address] 05 Sep, 2013 [facility] [address] [id number] [address] [place] [address], [place] [address] 04 Sep, 2013 [facility] [address] [id number] [address] [place] [address], [place] [address] 04 Sep, 2013 [facility] [address] [id number] [address] [place] [address], [place] [address] 03 Feb, 2013 [facility] [address] [id number] [address] [place] [address], [place] [address] Feb, 2013 [facility] [address] [id number] [address] [place] [address], [place] [address] Feb, 2013 [facility] [address] [id number] [address] [place] [address], [place] [address] Feb, 2013 [facility] [address] [id number] [address] [place] [address], [place] [address] Feb, 2013 [facility] [address] [id number] [address] [place] [address], [place] [address] Feb, 2013 [facility] [address] [id number] [address] [place] [address], [place] [address] Jan, [facility] [address] [id number] [address] [place] [address], [place] [address] Jan, [facility] [address] [id number] [address] [place] [address], [place] [address] Jan, [facility] [address] [id number] [address] [place] [address], [place] [address] Jan, [facility] [address] [id number] [address] [place] [address], [place] [address] Jan, [facility] [address] [id number] [address] [place] [address], [place] [address] Jan, [facility] [address] [id number] [address] [place] [address], [place] [address] Jan, [facility] [address] [id number] [address] [place] [address], [place] [address] Jan, [facility] [address] [id number] [address] [place] [address], [place] [address] Jan, [facility] [address] [id number] [address] [place] [address], [place] [address] Jan, [facility] [address] [id number] [address] [place] [address], [place] [address] Jan, [facility] [address] [id number] [address] [place] [address], [place] [address] Jan, [facility] [address] [id number] [address] [place] [address], [place] [address] Dec, [facility] [address] [id number] [address] [place] [address], [place] [address] Dec, [facility] [address] [id number] [address] [place] [address], [place] [address] Dec, [facility] [address] [id number] [address] [place] [address], [place] [address] Dec, [facility] [address] [id number] [address] [place] [address], [place] [address] Dec, [facility] [address] [id number] [address] [place] [address], [place] [address] Dec, [facility] [address] [id number] [address] [place] [address], [place] [address] Dec, [facility] [address] [id number] [address] [place] [address], [place] [address] Dec, [facility] [address] [address] [id number] [address] [place] [address], [place] [address] Dec, [facility] [address] [id number] [address] [place] [address], [place] [address] Dec, [facility] [address] [id number] [address] [place] [address], [place] [address] Dec, [facility] [address] [id number] [address] [place] [address], [place] [address] Dec, [facility] [address] [id number] [address] [place] [address], [place] [address] Nov, [facility] [address] [id number] [address] [place] [address], [place] [address] Nov, [facility] [address] [id number] [address] [place] [address], [place] [address] Nov, [facility] [address] [id number] [address] [place] [address], [place] [address] Nov, [facility] [address] [id number] [address] [place] [address], [place] [address] Nov, [facility] [address] [id number] [address] [place] [address], [place] [address] Nov, [facility] [address] [id number] [address] [place] [address], [place] [address] Nov, [facility] [address] [id number] [address] [place] [address], [place] [address] Nov, [facility] [address] [id number] [address] [place] [id number] Nov, [facility] [address] [id number] [address] [place] [address], [place] [address] Nov, [facility] [address] [id number] [address] [place] [address], [place] [address] Nov, [facility] [address] [id number] [address] [place] [address], [place] [address] Nov, [facility] [address] [id number] [address] [place] [address], [place] [address] Nov, [facility] [address] [id number] [address] [place] [address], [place] [address] Nov, [facility] [address] [id number] [address] [place] [address], [place] [address] October, [facility] [address] [id number] [address] [place] [address], [place] [address] October, [facility] [address] [id number] [address] [place] [address], [place] [address] October, [facility] [address] [id number] [address] [place] [address], [place] [address] October, [facility] [address] [id number] [address] [place] [address], [place] [address] October, [facility] [address] [id number] [address] [place] [address], [place] [address] October, [facility] [address] [id number] [address] [place] [address], [place] [address] October, [facility] [address] [id number] [address] [place] [address], [place] [address] October, [facility] [address] [id number] [address] [place] [address], [place] [address] October, [facility] [address] [id number] [address] [place] [address], [place] [address] October, [facility] [address] [id number] [address] [place] [address], [place] [address] October, [facility] [address] [id number] [address] [place] [address], [place] [address] October, [facility] [address] [id number] [address] [place] [address], [place] [address] Sep, [facility] [address] [id number] [address] [place] [address], [place] [address] Sep, [facility] [address] [id number] [facility] [place] [address] Sep, [facility] [address] [id number] [address] [place] [address], [place] [address] Sep, [facility] [address] [id number] [address] [place] [address], [place] [address] Sep, [facility] [address] [id number] [address] [place] [address], [place] [address] Sep, [facility] [address] [id number] [address] [place] [address], [place] [address] Aug, [facility] [address] [id number] [address] [place] [address], [place] [address] Aug, [facility] [address] [id number] [address] [place] [address], [place] [address] Aug, [facility] [address] [id number] [address] [place] [address], [place] [address] Aug, [facility] [address] [id number] [address] [place] [address], [place] [address] Aug, [facility] [address] [id number] [address] [place] [address], [place] [address] Aug, [facility] [address] [id number] [address] [place] [address], [place] [address] Jul, [facility] [address] [id number] [address] [place] [address], [place] [address] Jul, [facility] [address] [id number] [address] [place] [address], [place] [address] Jul, [facility] [address] [id number] [address] [place] [address], [place] [address] Jul, [facility] [address] [id number] [address] [place] [address], [place] [address] Jul, [facility] [address] [id number] [address] [place] [address], [place] [address] 13 Jul, 2013 [facility] [address] [id number] [address] [place] [address], [place] [address] Jul, [facility] [address] [id number] [address] [place] [address], [place] [address] Jul, [facility] [address] [id number] [address] [place] [address], [place] [address] Jul, [facility] [address] [id number] [address] [place] [address], [place] [address] Jul, [facility] [address] [id number] [address] [place] [address], [place] [address] Jun, [facility] [address] [id number] [address] [place] [address], [place] [address] Jun, [facility] [address] [id number] [address] [place] [address], [place] [address] Jun, [facility] [address] [id number] [address] [place] [address], [place] [address] Jun, [facility] [address] [id number] [address] [place] [address], [place] [address] Jun, [facility] [address] [id number] [address] [place] [address], [place] [address] Jun, [facility] [address] [id number] [address] [place] [address], [place] [address] Jun, [facility] [address] [id number] [address] [place] [address], [place] [address] Jun, [facility] [address] [id number] [address] [place] [address], [place] [address] May, [facility] [address] [id number] [address] [place] [address], [place] [address] May, [facility] [address] [id number] [address] [place] [address] [address] May, [facility] [address] [id number] [address] [place] [address], [place] [address] May, [facility] [address] [id number] [address] [place] [address], [place] [address] May, [facility] [address] [id number] [address] [place] [address], [place] [address] May, [facility] [address] [id number] [address] [place] [address], [place] [address] May, [facility] [address] [id number] [address] [place] [address], [place] [address] May, [facility] [address] [id number] [address] [place] [address], [place] [address] Apr, [facility] [address] [id number] [address] [place] [address], [place] [address] Apr, [facility] [address] [id number] [address] [place] [id number] Apr, [facility] [address] [id number] [address] [place] [id number] Apr, [facility] [address] [id number] [address] [place] [id number] Apr, [facility] [address] [id number] [address] [place] [id number] Apr, [facility] [address] [id number] [address] [place] [id number] Mar, [facility] [address] [id number] [address] [place] [id number] Mar, [facility] [address] [id number] [address] [place] [id number] Mar, [facility] [address] [id number] [address] [place] [id number] Mar, [facility] [address] [id number] [address] [place] [address], [place] [address] Mar, [facility] [address] [id number] [address] [place] [address], [place] [address] Mar, [facility] [address] [id number] [address] [place] [address], [place] [address] Mar, [facility] [address] [id number] [address] [place] [address], [place] [address] 30 Feb, 2013 [facility] [address] [id number] [address] [place] [address], [place] [address] 30 Feb, 2013 [facility] [address] [id number] [address] [place] [address], [place] [address] 27 Feb, 2013 [facility] [address] [id number] [address] [place] [address], [place] [address] Feb, [facility] [address] [id number] [address] [place] [address], [place] [address] Feb, [facility] [address] [id number] [address] [place] [address], [place] [address] Feb, [facility] [address] [id number] [address] [place] [address], [place] [address] Jan, [facility] [address] [id number] [address] [place] [address], [place] [address] Jan, [facility] [address] [id number] [address] [place] [address], [place] [address] Jan, [facility] [address] [id number] [address] [place] [address], [place] [address] Jan, [facility] [address] [id number] [address] [place] [address], [place] [address] Jan, [facility] [address] [id number] [address] [place] [address], [place] [address] Jan, [facility] [address] [id number] [address] [place] [address], [place] [address] Jan, [facility] [address] [id number] [address] [place] [address], [place] [address] Jan, [facility] [address] [id number] [address] [place] [address], [place] [address] Jan, [facility] [address] [id number] [address] [place] [address], [place] [address] Dec, [facility] [address] [id number] [address] [place] [address], [place] [address] Dec, [facility] [address] [id number] [address] [place] [address], [place] [address] Dec, [facility] [address] [id number] [address] [place] [address], [place] [address] Dec, [facility] [address] [id number] [address] [place] [address], [place] [address] Dec, [facility] [address] [id number] [address] [place] [address], [place] [address] Dec, [facility] [address] [id number] [address] [place] [address], [place] [address] Dec, [facility] [address] [id number] [address] [place] [address], [place] [address] Dec, [facility] [address] [id number] [address] [place] [address], [place] [address] Dec, [facility] [address] [id number] [address] [place] [address], [place] [address] Dec, [facility] [address] [id number] [address] [place] [address], [place] [address] Dec, [facility] [address] [id number] [address] [place] [address], [place] [address] Dec, [facility] [address] [id number] [address] [place] [address], [place] [address] Dec, [facility] [address] [id number] [address] [place] [address], [place] [address] Nov, [facility] [address] [id number] [address] [place] [address], [place] [address] Nov, [facility] [address] [id number] [address] [place] [address], [place] [address] Nov, [facility] [address] [id number] [address] [place] [address], [place] [address] Nov, [facility] [address] [id number] [address] [place] [address], [place] [address] October, [facility] [address] [id number] [address] [place] [address], [place] [address] October, [facility] [address] [id number] [address] [place] [address], [place] [address] October, [facility] [address] [id number] [address] [place] [address], [place] [address] October, [facility] [address] [id number] [address] [place] [address], [place] [address] October, [facility] [address] [id number] [address] [place] [address], [place] [address] October, [facility] [address] [id number] [address] [place] [address], [place] [address] 30 Sep, 2012 [facility] [address] [id number] [address] [place] [address], [place] [address] 29 Sep, 2012 [facility] [address] [id number] [address] [place] [address], [place] [address] 27 Sep, 2012 [facility] [address] [id number] [address] [place] [address], [place] [address] 23 Sep, 2012 [facility] [address] [id number] [address] [place] [address], [place] [address] Sep, [facility] [address] [id number] [address] [place] [address], [place] [address] 16 Sep, 2012 [facility] [address] [id number] [facility] [place] [address] 12 Sep, 2012 [facility] [address] [id number] [address] [place] [address], [place] [address] Sep, [facility] [address] [id number] [address] [place] [address], [place] [address] Sep, [facility] [address] [id number] [address] [place] [address], [place] [address] Sep, [facility] [address] [id number] [address] [place] [address], [place] [address] Sep, [facility] [address] [id number] [address] [place] [address], [place] [address] Aug, [facility] [address] [id number] [address] [place] [address], [place] [address] Aug, [facility] [address] [id number] [address] [place] [address], [place] [address] 25 Aug, 2012 [facility] [address] [id number] [address] [place] [address], [place] [address] 21 Aug, 2012 [facility] [address] [id number] [address] [place] [address], [place] [address] 19 Aug, 2012 [facility] [address] [id number] [address] [place] [address], [place] [address] 18 Aug, 2012 [facility] [address] [id number] [address] [place] [address], [place] [address] 17 Aug, 2012 [facility] [address] [id number] [address] [place] [address], [place] [address] 15 Aug, 2012 [facility] [address] [id number] [address] [place] [address], [place] [address] 15 Aug, 2012 [facility] [address] [id number] [address] [place] [address], [place] [address] 11 Aug, 2012 [facility] [address] [id number] [address] [place] [address], [place] [address] Aug, [facility] [address] [id number] [address] [place] [address], [place] [address] Aug, [facility] [address] [id number] [address] [place] [address], [place] [address] Jul, [facility] [address] [id number] [address] [place] [address], [place] [address] Jul, [facility] [address] [id number] [address] [place] [address], [place] [address] Jul, [facility] [address] [id number] [address] [place] [address], [place] [address] Jul, [facility] [address] [id number] [address] [place] [address], [place] [address] Jul, [facility] [address] [id number] [address] [place] [address], [place] [address] Jul, [facility] [address] [id number] [address] [place] [address], [place] [address] Jul, [facility] [address] [id number] [address] [place] [address], [place] [address] Jul, [facility] [address] [id number] [address] [place] [address], [place] [address] Jul, [facility] [address] [id number] [address] [place] [address] Jul, [facility] [address] [id number] [address] [place] [id number] May, [facility] [address] [id number] [id number] May, [facility] [address] [id number] [address] [place] [id number] May, [facility] [address] [id number] [address] [place] [address], [place] [address] 14 May, 2012 [facility] [address] [id number] [address] [place] [address], [place] [address] May, [facility] [address] [id number] [address] [place] [address], [place] [address] Apr, [facility] [address] [id number] [place] [id number] Apr, [facility] [address] [facility] [id number] [address] [place] [address], [place] [address] Apr, [facility] [address] [facility] [id number] [address] [place] [address], [place] [address] Mar, [facility] [address] [id number] [place] [id number] Mar, [facility] [address] [facility] [id number] [address] [place] [address], [place] [address] Mar, [facility] [address] [id number] [place] [id number] Feb, [facility] [address] [facility] [id number] [address] [place] [address], [place] [address] Feb, [facility] [address] [facility] [id number] [address] [place] [address], [place] [address] Feb, [facility] [address] [id number] [place] [id number] Feb, [facility] [address] [id number] [place] [id number] Feb, [facility] [address] [id number] [place] [id number] Jan, [facility] [address] [id number] [address] [place] [address], [place] [address] Jan, [facility] [address] [id number] [place] [id number] Jan, [facility] [address] [id number] [place] [id number] Jan, [facility] [address] [id number] [place] [id number] Jan, [facility] [address] [id number] [address] [place] [address], [place] [address] Jan, [facility] [address] [facility] [id number] [address] [place] [address], [place] [address] Jan, [facility] [address] [facility] [id number] [address] [place] [address], [place] [address] Aug, [facility] [address] [facility] [id number] [place] [id number] Aug, [facility] [address] [facility] [id number] [address] [place] [address], [place] [address] Jul, [facility] [address] [facility] [id number] [address] [place] [address], [place] [address] Jul, [facility] [address] [facility] [id number] [address] [place] [address], [place] [address] Jul, [facility] [address] [facility] [id number] [place] [id number] Jul, [facility] [address] [facility] [id number] [address] [place] [address], [place] [address] Jul, [facility] [address] [facility] [id number] [place] [id number] Jul, [facility] [address] [facility] [id number] [address] [place] [address], [place] [address] Jul, [facility] [address] [id number] [place] [id number] Jul, [facility] [address] [id number] [place] [id number] Jul, [facility] [address] [id number] [place] [id number] Jul, [facility] [address] [facility] [id number] [address] [place] [address], [place] [address] May, [facility] [address] [facility] [id number] [address] [place] [address], [place] [address] May, [facility] [address] [id number] [address] [place] [id number] May, [facility] [address] [id number] [address] [place] [id number] Apr, [facility] [address] [id number] [address] [place] [id number] Jan, [facility] [address] [id number] [address] [place] [id number] Jan, [facility] [address] [id number] [address] [place] [id number] Dec, [facility] [address] [id number] [address] [place] [id number] Dec, [facility] [address] [id number] [address] [place] [id number] 16 May, 2009 [facility] [address] [id number] [address] [place] [id number] Mar, [facility] [address] [id number] [address] [place] [id number] Mar, [facility] [address] [id number] [address] [place] [id number] Jan, IMMUNIZATIONS No Known Immunizations SOCIAL HISTORY Never Assessed REASON FOR VISIT [facility] [place] PLAN OF CARE VITAL SIGNS MEDICATIONS Unknown [...]
--- OUTSIDE RECORDS SUMMARY | 2020-01-28 13:03 | XMS REPORT ---
Author Author Heydi Candelario Doctor Organization [facility] Address Unknown Phone Unavailable Care Team Providers Care Supervisor Travel Information Center Name Role Phone Migration, Doctor Unavailable Unavailable PROBLEMS Type Condition ICD9-CM Code PRX00-LK Code Onset Dates Condition S tatus SNOMED Code Problem Chronic pain syndrome G89.4 Active 744434714 Problem Sore throat J02.9 Active 52958297 3 Problem Choriocarcinoma C58 Active 1881 27849 Problem [facility] current use of anticoagulant Z79.01 Active 118747504 Problem History of venous thromboembolism V12.51 Active 325718504 Problem Cellulitis of unspecified part of limb L03.119 Active 984441433 Problem Gastroesophageal reflux disease without esophagitis K21.9 Active 815880605 Problem History of pulmonary embolism Z86.711 Active 972796766 Problem Pseudotumor cerebri G93.2 Active 81860460 Problem History of DVT (deep vein thrombosis) Z86.718 Active 777904348 ALLERGIES No Information ENCOUNTERS Encounter Location Date Diagnosis [place] [address] [address] [facility] [id number] [address] [place] [address] Apr, buttermaker (current) use of 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 Z79.01 [place] [id number] [facility] [id number] [address] [place] [address] Apr, buttermaker 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.01 [place] [address] N [facility] [id number] [address] [place] [address] Apr, Cellulitis of unspecified pa rt of limb L03.119 ; Allergic contact dermatitis due to adhesives L23.1 and Chronic pain syndrome G89.4 [facility] [address] [facility] [id number] [address] [place] [address] Apr, [place] [address] [address] [facility] [id number] [address] [place] [address] Apr, [facility] 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.01 ; Cellulitis of unspecified part of limb L03.119 ; Chronic pain syndrome G89.4 and Anxiety F41.9 [place] [address] [address] [place] [id number] [address] [place] [address] 16 Apr, 2015 [place] [address] [address] [place] [id number] [place] [address] Apr, [place] [address] [address] Mar, [place] [address] [address] [place] [id number] [place] [address] Mar, [place] [address] [address] Mar, Sore throat J02.9 ; Gastroes ophageal reflux disease without esophagitis K21.9 ; Pseudotumor cerebri G93.2 ; Chronic pain syndrome G89.4 ; Choriocarcinoma C58 ; History of pulmonary embolism Z86.711 ; History of DVT (deep vein thrombosis) Z86.718 ; Anxiety F41.9 and Tachycardia R00.0 [place] [address] [address] Feb, Anxiety 300.00 and Chronic p ain 338.29 [place] [address] [address] [place] [id number] [address] [place] [address] Feb, [place] [id number] [place] [address] Feb, [place] [address] [address] [place] [id number] [place] [address] Jan, [facility] current use of ant icoagulant therapy V58.61 and Dysuria 788.1 [place] [address] [address] [place] [id number] [address] [place] [address] Jan, Dysuria 788.1 [place] [address] [address] [place] [id number] [place] [address] Jan, Anxiety 300.00 and Chronic p ain 338.29 [place] [address] [address] Jan, [facility] [address] [address] Jan, [place] [address] [address] Jan, [place] [address] [address] Dec, Weakness 780.79 [place] [address] [address] Dec, buttermaker current use of ant icoagulant therapy V58.61 [place] [address] [address] Dec, Palpitations 785.1 ; Tremor 781.0 ; Weakness 780.79 ; [facility] current use of anticoagulant therapy V58.61 and Yeast vaginitis 112.1 [place] [address] [address] Dec, [place] [address] [address] Dec, Cervicalgia 723.1 ; Tachycar yoseph 785.0 ; Pseudotumor cerebri 348.2 and History of venous thromboembolism V12.51 [place] [address] [address] [place] [id number] [address] [place] [address] Nov, [place] [address] [address] Nov, [place] [address] [address] Nov, Tachycardia 785.0 ; Pseudotu mor cerebri 348.2 ; Anxiety 300.00 and History of venous thromboembolism V12.51 [facility] [address] [id number] [address] [place] [address], [place] [address] Nov, [facility] [address] [id number] [address] [place] [address], [place] [address] 18 Nov, 2014 [facility] [address] [id number] [address] [place] [address], [place] [address] 16 Nov, 2014 [facility] [address] [id number] [address] [place] [address], [place] [address] Nov, [facility] [address] [id number] [address] [place] [address], [place] [address] Nov, [facility] [address] [id number] [address] [place] [address], [place] [address] Nov, [facility] [address] [id number] [address] [place] [address], [place] [address] Nov, [facility] [address] [id number] [address] [place] [address] October, [facility] [address] [id number] [address] [place] [address] October, [facility] [address] [id number] [address] [place] [address] October, Pain in thoracic spine 724.1 and Tachycardia 785.0 [facility] [address] [id number] [address] [place] [address] October, [facility] [address] [id number] [address] [place] [address] October, [facility] [address] [id number] [address] [place] [address] Sep, [facility] [address] [id number] [address] [place] [address] Sep, [facility] [address] [id number] [address] [place] [address] Aug, [facility] [address] [id number] [address] [place] [address], [place] [address] Aug, [facility] [address] [id number] [address] [place] [address], [place] [address] Aug, [facility] [address] [id number] [address] [place] [address], [place] [address] 17 Aug, 2014 [facility] [address] [id number] [address] [place] [address], [place] [address] Aug, [facility] [address] [id number] [address] [place] [address], [place] [address] 16 Aug, 2014 [facility] [address] [id number] [address] [place] [address], [place] [address] Aug, [facility] [address] [id number] [address] [place] [address], [place] [address] Aug, [facility] [address] [id number] [address] [place] [address], [place] [address] Aug, 2014 [facility] [address] [id number] [address] [place] [address], [place] [address] Aug, [facility] [address] [id number] [address] [place] [address], [place] [address] Aug, [facility] [address] [id number] [address] [place] [address], [place] [address] Aug, [facility] [address] [id number] [address] [place] [address], [place] [address] Jul, 2014 [facility] [address] [id number] [address] [place] [address], [place] [address] Jul, 2014 [facility] [address] [id number] [address] [place] [address], [place] [address] Jul, 2014 [facility] [address] [id number] [address] [place] [address], [place] [address] Jul, 2014 [facility] [address] [id number] [address] [place] [address], [place] [address] b, 2014 [facility] [address] [id number] [address] [place] [address], [place] [address] 23 Jul, 2014 [facility] [address] [id number] [address] [place] [address], [place] [address] 23 Jul, 2014 [facility] [address] [id number] [address] [place] [address], [place] [address] 23 Jul, 2014 [facility] [address] [id number] [address] [place] [address], [place] [address] 20 Jul, 2014 [facility] [address] [id number] [address] [place] [address], [place] [address] 20 Jul, 2014 [facility] [address] [id number] [address] [place] [address], [place] [address] 19 Jul, 2014 [facility] [address] [id number] [address] [place] [address], [place] [address] 19 Jul, 2014 [facility] [address] [id number] [address] [place] [address], [place] [address] 17 Jul, 2014 [facility] [address] [id number] [address] [place] [address], [place] [address] 17 Jul, 2014 [facility] [address] [id number] [address] [place] [address], [place] [address] 16 Jul, 2014 [facility] [address] [id number] [address] [place] [address], [place] [address] 16 Jul, 2014 [facility] [address] [id number] [address] [place] [address], [place] [address] 16 Jul, 2014 [facility] [address] [id number] [address] [place] [address], [place] [address] 16 Jul, 2014 [facility] [address] [id number] [address] [place] [address], [place] [address] 13 Jul, 2014 [facility] [address] [id number] [address] [place] [address], [place] [address] Jul, 2014 [facility] [address] [id number] [address] [place] [address], [place] [address] Jul, 2014 [facility] [address] [id number] [address] [place] [address], [place] [address] Jul, 2014 [facility] [address] [id number] [address] [place] [address], [place] [address] Jul, 2014 [facility] [address] [id number] [address] [place] [address], [place] [address] Jul, 2014 [facility] [address] [id number] [address] [place] [address], [place] [address] Jul, [facility] [address] [id number] [address] [place] [address], [place] [address] Jul, [facility] [address] [id number] [address] [place] [address], [place] [address] Jul, [facility] [address] [id number] [address] [place] [address], [place] [address] Jul, [facility] [address] [id number] [address] [place] [address], [place] [address] Jul, [facility] [address] [id number] [address] [place] [address], [place] [address] Jul, [facility] [address] [id number] [address] [place] [address], [place] [address] Jun, [facility] [address] [id number] [address] [place] [address], [place] [address] Jun, [facility] [address] [id number] [address] [place] [address], [place] [address] Jun, [facility] [address] [id number] [address] [place] [address], [place] [address] Jun, [facility] [address] [id number] [address] [place] [address], [place] [address] Jun, [facility] [address] [id number] [address] [place] [address], [place] [address] Jun, [facility] [address] [id number] [address] [place] [address], [place] [address] Jun, [facility] [address] [id number] [address] [place] [address], [place] [address] Jun, [facility] [address] [id number] [address] [place] [address], [place] [address] Jun, [facility] [address] [id number] [address] [place] [address], [place] [address] Jun, [facility] [address] [id number] [address] [place] [address], [place] [address] Jun, [facility] [address] [id number] [address] [place] [address], [place] [address] Jun, [facility] [address] [id number] [address] [place] [address], [place] [address] Jun, [facility] [address] [id number] [address] [place] [address], [place] [address] Jun, [facility] [address] [id number] [address] [place] [address], [place] [address] Jun, [facility] [address] [id number] [address] [place] [address], [place] [address] Jun, [facility] [address] [id number] [address] [place] [address], [place] [address] Jun, [facility] [address] [id number] [address] [place] [address], [place] [address] Jun, [facility] [address] [id number] [address] [place] [address], [place] [address] Jun, [facility] [address] [id number] [address] [place] [address], [place] [address] Jun, [facility] [address] [id number] [address] [place] [address], [place] [address] May, [facility] [address] [id number] [address] [place] [address], [place] [address] May, [facility] [address] [id number] [address] [place] [address], [place] [address] May, [facility] [address] [id number] [address] [place] [address], [place] [address] May, [facility] [address] [id number] [address] [place] [address], [place] [address] May, [facility] [address] [id number] [address] [place] [address], [place] [address] May, [facility] [address] [id number] [address] [place] [address], [place] [address] May, [facility] [address] [id number] [address] [place] [address], [place] [address] May, [facility] [address] [id number] [address] [place] [address], [place] [address] May, [facility] [address] [id number] [address] [place] [address], [place] [address] May, [facility] [address] [id number] [address] [place] [address], [place] [address] May, [facility] [address] [id number] [address] [place] [address], [place] [address] 18 May, 2014 [facility] [address] [id number] [address] [place] [address], [place] [address] 18 May, 2014 [facility] [address] [id number] [address] [place] [address], [place] [address] 17 May, 2014 [facility] [address] [id number] [address] [place] [address], [place] [address] 16 May, 2014 [facility] [address] [id number] [address] [place] [address], [place] [address] 16 May, 2014 [facility] [address] [id number] [address] [place] [address], [place] [address] 15 May, 2014 [facility] [address] [id number] [address] [place] [address], [place] [address] 15 May, 2014 [facility] [address] [id number] [address] [place] [address], [place] [address] May, [facility] [address] [id number] [address] [place] [address], [place] [address] May, [facility] [address] [id number] [address] [place] [address], [place] [address] May, [facility] [address] [id number] [address] [place] [address], [place] [address] May, [facility] [address] [id number] [address] [place] [address], [place] [address] May, [facility] [address] [id number] [address] [place] [address], [place] [address] May, [facility] [address] [id number] [address] [place] [address], [place] [address] May, [facility] [address] [id number] [address] [place] [address], [place] [address] May, [facility] [address] [id number] [address] [place] [address], [place] [address] May, [facility] [address] [id number] [address] [place] [address], [place] [address] May, [facility] [address] [id number] [address] [place] [address], [place] [address] May, [facility] [address] [id number] [address] [place] [address], [place] [address] May, [facility] [address] [id number] [address] [place] [address], [place] [address] May, [facility] [address] [id number] [address] [place] [address], [place] [address] May, [facility] [address] [id number] [address] [place] [address], [place] [address] May, [facility] [address] [id number] [address] [place] [address], [place] [address] May, [facility] [address] [id number] [address] [place] [address], [place] [address] Apr, [facility] [address] [id number] [address] [place] [address], [place] [address] Apr, [facility] [address] [id number] [address] [place] [address], [place] [address] Apr, [facility] [address] [id number] [address] [place] [address], [place] [address] Apr, [facility] [address] [id number] [address] [place] [address], [place] [address] Apr, [facility] [address] [id number] [address] [place] [address], [place] [address] Apr, [facility] [address] [id number] [address] [place] [address], [place] [address] Apr, [facility] [address] [id number] [address] [place] [address], [place] [address] Apr, [facility] [address] [id number] [address] [place] [address], [place] [address] Apr, [facility] [address] [id number] [address] [place] [address], [place] [address] Apr, [facility] [address] [id number] [address] [place] [address], [place] [address] Mar, [facility] [address] [id number] [address] [place] [address], [place] [address] Mar, [facility] [address] [id number] [address] [place] [address], [place] [address] Mar, [facility] [address] [id number] [address] [place] [address], [place] [address] 31 Mar, 2013 [facility] [address] [id number] [address] [place] [address], [place] [address] 30 Mar, 2013 [facility] [address] [id number] [address] [place] [address], [place] [address] 30 Mar, 2014 [facility] [address] [id number] [address] [place] [address], [place] [address] Mar, 2013 [facility] [address] [id number] [address] [place] [address], [place] [address] 17 Mar, 2013 [facility] [address] [id number] [address] [place] [address], [place] [address] 15 Mar, 2014 [facility] [address] [id number] [address] [place] [id number] 15 Mar, 2014 [facility] [address] [id number] [address] [place] [address], [place] [address] 15 Mar, 2014 [facility] [address] [id number] [address] [place] [address] Mar, [facility] [address] [id number] [address] [place] [address], [place] [address] Mar, [facility] [address] [id number] [address] [place] [address] Mar, [facility] [address] [id number] [address] [place] [address] Mar, [facility] [address] [id number] [address] [place] [address] Mar, 2013 [facility] [address] [id number] [address] [place] [address], [place] [address] Mar, [facility] [address] [id number] [address] [place] [address] Mar, [facility] [address] [id number] [address] [place] [address] Mar, 2013 [facility] [address] [id number] [address] [place] [address], [place] [address] 02 Mar, 2013 [facility] [address] [id number] [address] [place] [address], [place] [address] 05 Sep, 2013 [facility] [address] [id number] [address] [place] [address], [place] [address] 05 Sep, 2013 [facility] [address] [id number] [address] [place] [address], [place] [address] 04 Sep, 2013 [facility] [address] [id number] [address] [place] [address], [place] [address] 04 Sep, 2013 [facility] [address] [id number] [address] [place] [address], [place] [address] 03 Feb, 2013 [facility] [address] [id number] [address] [place] [address], [place] [address] Feb, 2013 [facility] [address] [id number] [address] [place] [address], [place] [address] Feb, 2013 [facility] [address] [id number] [address] [place] [address], [place] [address] Feb, 2013 [facility] [address] [id number] [address] [place] [address], [place] [address] Feb, 2013 [facility] [address] [id number] [address] [place] [address], [place] [address] Feb, 2013 [facility] [address] [id number] [address] [place] [address], [place] [address] Jan, [facility] [address] [id number] [address] [place] [address], [place] [address] Jan, [facility] [address] [id number] [address] [place] [address], [place] [address] Jan, [facility] [address] [id number] [address] [place] [address], [place] [address] Jan, [facility] [address] [id number] [address] [place] [address], [place] [address] Jan, [facility] [address] [id number] [address] [place] [address], [place] [address] Jan, [facility] [address] [id number] [address] [place] [address], [place] [address] Jan, [facility] [address] [id number] [address] [place] [address], [place] [address] Jan, [facility] [address] [id number] [address] [place] [address], [place] [address] Jan, [facility] [address] [id number] [address] [place] [address], [place] [address] Jan, [facility] [address] [id number] [address] [place] [address], [place] [address] Jan, [facility] [address] [id number] [address] [place] [address], [place] [address] Jan, [facility] [address] [id number] [address] [place] [address], [place] [address] Dec, [facility] [address] [id number] [address] [place] [address], [place] [address] Dec, [facility] [address] [id number] [address] [place] [address], [place] [address] Dec, [facility] [address] [id number] [address] [place] [address], [place] [address] Dec, [facility] [address] [id number] [address] [place] [address], [place] [address] Dec, [facility] [address] [id number] [address] [place] [address], [place] [address] Dec, [facility] [address] [id number] [address] [place] [address], [place] [address] Dec, [facility] [address] [id number] [address] [place] [address], [place] [address] Dec, [facility] [address] [id number] [address] [place] [address], [place] [address] Dec, [facility] [address] [id number] [address] [place] [address], [place] [address] Dec, [facility] [address] [id number] [address] [place] [address], [place] [address] Dec, [facility] [address] [id number] [address] [place] [address], [place] [address] Dec, [facility] [address] [id number] [address] [place] [address], [place] [address] Nov, [facility] [address] [id number] [address] [place] [address], [place] [address] Nov, [facility] [address] [id number] [address] [place] [address], [place] [address] Nov, [facility] [address] [id number] [address] [place] [address], [place] [address] Nov, [facility] [address] [id number] [address] [place] [address], [place] [address] Nov, [facility] [address] [id number] [address] [place] [address], [place] [address] Nov, [facility] [address] [id number] [address] [place] [address], [place] [address] Nov, [facility] [address] [id number] [address] [place] [address], [place] [address] Nov, [facility] [address] [id number] [address] [place] [address] Nov, [facility] [address] [id number] [address] [place] [address], [place] [address] Nov, [facility] [address] [id number] [address] [place] [address], [place] [address] Nov, [facility] [address] [id number] [address] [place] [address], [place] [address] Nov, [facility] [address] [id number] [address] [place] [address], [place] [address] Nov, [facility] [address] [id number] [address] [place] [address], [place] [address] Nov, [facility] [address] [id number] [address] [place] [address], [place] [address] October, [facility] [address] [id number] [address] [place] [address], [place] [address] October, [facility] [address] [id number] [address] [place] [address], [place] [address] October, [facility] [address] [id number] [address] [place] [address], [place] [address] October, [facility] [address] [id number] [address] [place] [address], [place] [address] October, [facility] [address] [id number] [address] [place] [address], [place] [address] October, [facility] [address] [id number] [address] [place] [address], [place] [address] October, [facility] [address] [id number] [address] [place] [address], [place] [address] October, [facility] [address] [id number] [address] [place] [address], [place] [address] October, [facility] [address] [id number] [address] [place] [address], [place] [address] October, [facility] [address] [id number] [address] [place] [address], [place] [address] October, [facility] [address] [id number] [address] [place] [address], [place] [address] October, [facility] [address] [id number] [address] [place] [address], [place] [address] Sep, [facility] [address] [id number] [address] [place] [address], [place] [address] Sep, [facility] [address] [id number] [facility] [place] [address] Sep, [facility] [address] [id number] [address] [place] [address], [place] [address] Sep, [facility] [address] [id number] [address] [place] [address], [place] [address] Sep, [facility] [address] [id number] [address] [place] [address], [place] [address] Sep, [facility] [address] [id number] [address] [place] [address], [place] [address] Aug, [facility] [address] [id number] [address] [place] [address], [place] [address] Aug, [facility] [address] [id number] [address] [place] [address], [place] [address] Aug, [facility] [address] [id number] [address] [place] [address], [place] [address] Aug, [facility] [address] [id number] [address] [place] [address], [place] [address] Aug, [facility] [address] [id number] [address] [place] [address], [place] [address] Aug, [facility] [address] [id number] [address] [place] [address], [place] [address] Jul, [facility] [address] [id number] [address] [place] [address], [place] [address] Jul, [facility] [address] [id number] [address] [place] [address], [place] [address] Jul, [facility] [address] [id number] [address] [place] [address], [place] [address] Jul, [facility] [address] [id number] [address] [place] [address], [place] [address] Jul, [facility] [address] [id number] [address] [place] [address], [place] [address] 13 Jul, 2013 [facility] [address] [id number] [address] [place] [address], [place] [address] Jul, [facility] [address] [id number] [address] [place] [address], [place] [address] Jul, [facility] [address] [id number] [address] [place] [address], [place] [address] Jul, [facility] [address] [id number] [address] [place] [address], [place] [address] Jul, [facility] [address] [id number] [address] [place] [address], [place] [address] Jun, [facility] [address] [id number] [address] [place] [address], [place] [address] Jun, [facility] [address] [id number] [address] [place] [address], [place] [address] Jun, [facility] [address] [id number] [address] [place] [address], [place] [address] Jun, [facility] [address] [id number] [address] [place] [address], [place] [address] Jun, [facility] [address] [id number] [address] [place] [address], [place] [address] Jun, [facility] [address] [id number] [address] [place] [address], [place] [address] Jun, [facility] [address] [id number] [address] [place] [address], [place] [address] Jun, [facility] [address] [id number] [address] [place] [address], [place] [address] May, [facility] [address] [id number] [address] [place] [address], [place] [address] May, [facility] [address] [id number] [address] [place] [address] [address] May, [facility] [address] [id number] [address] [place] [address], [place] [address] May, [facility] [address] [id number] [address] [place] [address], [place] [address] May, [facility] [address] [id number] [address] [place] [address], [place] [address] May, [facility] [address] [id number] [address] [place] [address], [place] [address] May, [facility] [address] [id number] [address] [place] [address], [place] [address] May, [facility] [address] [id number] [address] [place] [address], [place] [address] Apr, [facility] [address] [id number] [address] [place] [address], [place] [address] Apr, [facility] [address] [id number] [address] [place] [address] Apr, [facility] [address] [id number] [address] [place] [address] Apr, [facility] [address] [id number] [address] [place] [address] Apr, [facility] [address] [id number] [address] [place] [address] Apr, [facility] [address] [id number] [address] [place] [address] Mar, [facility] [address] [id number] [address] [place] [address] Mar, [facility] [address] [id number] [address] [place] [address] Mar, [facility] [address] [id number] [address] [place] [address] Mar, [facility] [address] [id number] [address] [place] [address], [place] [address] Mar, [facility] [address] [id number] [address] [place] [address], [place] [address] Mar, [facility] [address] [id number] [address] [place] [address], [place] [address] Mar, [facility] [address] [id number] [address] [place] [address], [place] [address] 30 Feb, 2013 [facility] [address] [id number] [address] [place] [address], [place] [address] 30 Feb, 2013 [facility] [address] [id number] [address] [place] [address], [place] [address] 27 Feb, 2013 [facility] [address] [id number] [address] [place] [address], [place] [address] Feb, [facility] [address] [id number] [address] [place] [address], [place] [address] Feb, [facility] [address] [id number] [address] [place] [address], [place] [address] Feb, [facility] [address] [id number] [address] [place] [address], [place] [address] Jan, [facility] [address] [id number] [address] [place] [address], [place] [address] Jan, [facility] [address] [id number] [address] [place] [address], [place] [address] Jan, [facility] [address] [id number] [address] [place] [address], [place] [address] Jan, [facility] [address] [id number] [address] [place] [address], [place] [address] Jan, [facility] [address] [id number] [address] [place] [address], [place] [address] Jan, [facility] [address] [id number] [address] [place] [address], [place] [address] Jan, [facility] [address] [id number] [address] [place] [address], [place] [address] Jan, [facility] [address] [id number] [address] [place] [address], [place] [address] Jan, [facility] [address] [id number] [address] [place] [address], [place] [address] Dec, [facility] [address] [id number] [address] [place] [address], [place] [address] Dec, [facility] [address] [id number] [address] [place] [address], [place] [address] Dec, [facility] [address] [id number] [address] [place] [address], [place] [address] Dec, [facility] [address] [id number] [address] [place] [address], [place] [address] Dec, [facility] [address] [id number] [address] [place] [address], [place] [address] Dec, [facility] [address] [id number] [address] [place] [address], [place] [address] Dec, [facility] [address] [id number] [address] [place] [address], [place] [address] Dec, [facility] [address] [id number] [address] [place] [address], [place] [address] Dec, [facility] [address] [id number] [address] [place] [address], [place] [address] Dec, [facility] [address] [id number] [address] [place] [address], [place] [address] Dec, [facility] [address] [id number] [address] [place] [address], [place] [address] Dec, [facility] [address] [id number] [address] [place] [address], [place] [address] Dec, [facility] [address] [id number] [address] [place] [address], [place] [address] Nov, [facility] [address] [id number] [address] [place] [address], [place] [address] Nov, [facility] [address] [id number] [address] [place] [address], [place] [address] Nov, [facility] [address] [id number] [address] [place] [address], [place] [address] Nov, [facility] [address] [id number] [address] [place] [address], [place] [address] October, [facility] [address] [id number] [address] [place] [address], [place] [address] October, [facility] [address] [id number] [address] [place] [address], [place] [address] October, [facility] [address] [id number] [address] [place] [address], [place] [address] October, [facility] [address] [id number] [address] [place] [address], [place] [address] October, [facility] [address] [id number] [address] [place] [address], [place] [address] October, [facility] [address] [id number] [address] [place] [address], [place] [address] 30 Sep, 2012 [facility] [address] [id number] [address] [place] [address], [place] [address] 29 Sep, 2012 [facility] [address] [id number] [address] [place] [address], [place] [address] 27 Sep, 2012 [facility] [address] [id number] [address] [place] [address], [place] [address] 23 Sep, 2012 [facility] [address] [id number] [address] [place] [address], [place] [address] Sep, [facility] [address] [id number] [address] [place] [address], [place] [address] 16 Sep, 2012 [facility] [address] [id number] [facility] [place] [address] 12 Sep, 2012 [facility] [address] [id number] [address] [place] [address], [place] [address] Sep, [facility] [address] [id number] [address] [place] [address], [place] [address] Sep, [facility] [address] [id number] [address] [place] [address], [place] [address] Sep, [facility] [address] [id number] [address] [place] [address], [place] [address] Sep, [facility] [address] [id number] [address] [place] [address], [place] [address] Aug, [facility] [address] [id number] [address] [place] [address], [place] [address] Aug, [facility] [address] [id number] [address] [place] [address], [place] [address] 25 Aug, 2012 [facility] [address] [id number] [address] [place] [address], [place] [address] 21 Aug, 2012 [facility] [address] [id number] [address] [place] [address], [place] [address] 19 Aug, 2012 [facility] [address] [id number] [address] [place] [address], [place] [address] 18 Aug, 2012 [facility] [address] [id number] [address] [place] [address], [place] [address] 17 Aug, 2012 [facility] [address] [id number] [address] [place] [address], [place] [address] 15 Aug, 2012 [facility] [address] [id number] [address] [place] [address], [place] [address] 15 Aug, 2012 [facility] [address] [id number] [address] [place] [address], [place] [address] 11 Aug, 2012 [facility] [address] [id number] [address] [place] [address], [place] [address] Aug, [facility] [address] [id number] [address] [place] [address], [place] [address] Aug, [facility] [address] [id number] [address] [place] [address], [place] [address] Jul, [facility] [address] [id number] [address] [place] [address], [place] [address] Jul, [facility] [address] [id number] [address] [place] [address], [place] [address] Jul, [facility] [address] [id number] [address] [place] [address], [place] [address] Jul, [facility] [address] [id number] [address] [place] [address], [place] [address] Jul, [facility] [address] [id number] [address] [place] [address], [place] [address] Jul, [facility] [address] [id number] [address] [place] [address], [place] [address] Jul, [facility] [address] [id number] [address] [place] [address], [place] [address] Jul, [facility] [address] [id number] [address] [place] [address], [place] [address] Jul, [facility] [address] [id number] [address] [place] [id number] Jul, [facility] [address] [id number] [address] [place] [id number] May, [facility] [address] [id number] [place] [id number] May, [facility] [address] [id number] [address] [place] [address] May, [facility] [address] [id number] [address] [place] [address], [place] [address] 14 May, 2012 [facility] [address] [id number] [address] [place] [address], [place] [address] May, [facility] [address] [id number] [address] [place] [address], [place] [address] Apr, [facility] [place] [address] [id number] [place] [id number] Apr, [facility] [address] [facility] [id number] [address] [place] [address], [place] [address] Apr, [facility] [address] [facility] [id number] [address] [place] [address], [place] [address] Mar, [facility] [address] [id number] [place] [id number] Mar, [facility] [address] [facility] [id number] [address] [place] [address], [place] [address] Mar, [facility] [place] [address] [id number] [place] [id number] Feb, [facility] [address] [facility] [id number] [address] [place] [address], [place] [address] Feb, [facility] [address] [facility] [id number] [address] [place] [address], [place] [address] Feb, [facility] [address] [id number] [place] [id number] Feb, [facility] [address] [id number] [place] [id number] Feb, [facility] [address] [id number] [place] [id number] Jan, [facility] [address] [id number] [address] [place] [address], [place] [address] Jan, [facility] [place] [address] [id number] [place] [id number] Jan, [facility] [address] [id number] [place] [id number] Jan, [facility] [place] [address] [id number] [place] [id number] Jan, [facility] [address] [id number] [address] [place] [address], [place] [address] Jan, [facility] [address] [facility] [id number] [address] [place] [address], [place] [address] Jan, [facility] [address] [facility] [id number] [address] [place] [address], [place] [address] Aug, [facility] [place] [address] [facility] [id number] [place] [id number] Aug, [facility] [address] [facility] [id number] [address] [place] [address], [place] [address] Jul, [facility] [address] [facility] [id number] [address] [place] [address], [place] [address] Jul, [facility] [address] [facility] [id number] [address] [place] [address], [place] [address] Jul, [facility] [place] [address] [facility] [id number] [place] [id number] Jul, [facility] [address] [facility] [id number] [address] [place] [address], [place] [address] Jul, [facility] [place] [address] [facility] [id number] [place] [id number] Jul, [facility] [address] [facility] [id number] [address] [place] [address], [place] [address] Jul, [facility] [place] [address] [id number] [place] [id number] Jul, [facility] [place] [address] [id number] [place] [id number] Jul, [facility] [place] [address] [id number] [place] [id number] Jul, [facility] [address] [facility] [id number] [address] [place] [address], [place] [address] May, [facility] [address] [facility] [id number] [address] [place] [address], [place] [address] May, [facility] [address] [id number] [address] [place] [address] May, [facility] [address] [id number] [address] [place] [address] Apr, [facility] [address] [id number] [address] [place] [address] Jan, [facility] [address] [id number] [address] [place] [address] Jan, [facility] [address] [id number] [address] [place] [id number] Dec, [facility] [address] [id number] [address] [place] [address] Dec, [facility] [address] [id number] [address] [place] [id number] 16 May, 2009 [facility] [address] [id number] [address] [place] [address] Mar, [facility] [address] [id number] [address] [place] [address] Mar, [facility] [address] [id number] [address] [place] [address] Jan, IMMUNIZATIONS No Known Immunizations SOCIAL HISTORY Never Assessed REASON FOR [facility]ISIT [facility] [place] PLAN OF CARE VITAL SIGNS MEDICATIONS Unknown [...]
--- OUTSIDE RECORDS SUMMARY | 2020-01-28 13:03 | XMS REPORT ---
Author Author Heydi Candelario Doctor Organization [facility] Address Unknown Phone Unavailable Care Team Providers Care Stna Name Role Phone Migration, Doctor Unavailable Unavailable PROBLEMS Type Condition ICD9-CM Code [id number] Code Onset Dates Condition S tatus SNOMED Code Problem Chronic pain syndrome G89.4 Active 194610868 Problem Sore throat J02.9 Active 02609062 3 Problem Choriocarcinoma C58 Active 1881 50678 Problem 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 current use of anticoagulant Z79.01 Active 704916262 Problem History of venous thromboembolism V12.51 Active 088751031 Problem Cellulitis of unspecified part of limb L03.119 Active 328257728 Problem Gastroesophageal reflux disease without esophagitis K21.9 Active 085778710 Problem History of pulmonary embolism Z86.711 Active 573986400 Problem Pseudotumor cerebri G93.2 Active 83803222 Problem History of DVT (deep vein thrombosis) Z86.718 Active 631336209 ALLERGIES No Information ENCOUNTERS Encounter Location Date Diagnosis [place] [address] [address] [facility] [id number] [address] [place] [address] 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, 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 [place] [address] [facility] [id number] [address] [place] [address] Apr, 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 [place] [address] [facility] [id number] [address] [place] [address] Apr, Cellulitis of unspecified pa rt of limb L03.119 ; Allergic contact dermatitis due to adhesives L23.1 and Chronic pain syndrome G89.4 [facility] [address] [facility] [id number] [address] [place] [address] Apr, [place] [address] [address] [facility] [id number] [address] [place] [address] Apr, 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.01 ; Cellulitis of unspecified part of limb L03.119 ; Chronic pain syndrome G89.4 and Anxiety F41.9 [place] [address] [address] [place] [id number] [address] [place] [address] 16 Apr, 2015 [place] [address] [place] [id number] [place] [address] Apr, [place] [address] [address] Mar, [place] [address] [place] [id number] [place] [address] Mar, [place] [address] [address] Mar, Sore throat J02.9 ; Gastroes ophageal reflux disease without esophagitis K21.9 ; Pseudotumor cerebri G93.2 ; Chronic pain syndrome G89.4 ; Choriocarcinoma C58 ; History of pulmonary embolism Z86.711 ; History of DVT (deep vein thrombosis) Z86.718 ; Anxiety F41.9 and Tachycardia R00.0 [place] [address] [address] Feb, Anxiety 300.00 and Chronic p ain 338.29 [place] [address] [address] [place] [id number] [address] [place] [address] Feb, [place] [id number] [place] [address] Feb, [place] [address] [place] [id number] [place] [address] Jan, 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 current use of ant icoagulant therapy V58.61 and Dysuria 788.1 [place] [address] [address] [place] [id number] [address] [place] [address] Jan, Dysuria 788.1 [place] [address] [place] [id number] [place] [address] Jan, Anxiety 300.00 and Chronic p ain 338.29 [place] [address] [address] Jan, [facility] [address] [address] Jan, [place] [address] [address] Jan, [place] [address] [address] Dec, Weakness 780.79 [place] [address] [address] Dec, 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.61 [place] [address] [address] Dec, Palpitations 785.1 ; Tremor 781.0 ; Weakness 780.79 ; 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 current use of anticoagulant therapy V58.61 and Yeast vaginitis 112.1 [place] [address] [address] Dec, [place] [address] [address] Dec, Cervicalgia 723.1 ; Tachycar yoseph 785.0 ; Pseudotumor cerebri 348.2 and History of venous thromboembolism V12.51 [place] [address] [address] [place] [id number] [address] [place] [address] Nov, [place] [address] [address] Nov, [place] [address] [address] Nov, Tachycardia 785.0 ; Pseudotu mor cerebri 348.2 ; Anxiety 300.00 and History of venous thromboembolism V12.51 [facility] [address] [id number] [address] [place] [address], [place] [address] Nov, [facility] [address] [id number] [address] [place] [address], [place] [address] 18 Nov, 2014 [facility] [address] [id number] [address] [place] [address], [place] [address] 16 Nov, 2014 [facility] [address] [id number] [address] [place] [address], [place] [address] Nov, [facility] [address] [id number] [address] [place] [address], [place] [address] Nov, [facility] [address] [id number] [address] [place] [address], [place] [address] Nov, [facility] [address] [id number] [address] [place] [address], [place] [address] Nov, [facility] [address] [id number] [address] [place] [address] October, [facility] [address] [id number] [address] [place] [address] October, [facility] [address] [id number] [address] [place] [address] October, Pain in thoracic spine 724.1 and Tachycardia 785.0 [facility] [address] [id number] [address] [place] [address] October, [facility] [address] [id number] [address] [place] [address] October, [facility] [address] [id number] [address] [place] [address] Sep, [facility] [address] [id number] [address] [place] [address] Sep, [facility] [address] [id number] [address] [place] [address] Aug, [facility] [address] [id number] [address] [place] [address], [place] [address] Aug, [facility] [address] [id number] [address] [place] [address], [place] [address] Aug, [facility] [address] [id number] [address] [place] [address], [place] [address] 17 Aug, 2014 [facility] [address] [id number] [address] [place] [address], [place] [address] Aug, [facility] [address] [id number] [address] [place] [address], [place] [address] 16 Aug, 2014 [facility] [address] [id number] [address] [place] [address], [place] [address] Aug, [facility] [address] [id number] [address] [place] [address], [place] [address] Aug, [facility] [address] [id number] [address] [place] [address], [place] [address] Aug, 2014 [facility] [address] [id number] [address] [place] [address], [place] [address] Aug, [facility] [address] [id number] [address] [place] [address], [place] [address] Aug, [facility] [address] [id number] [address] [place] [address], [place] [address] Aug, [facility] [address] [id number] [address] [place] [address], [place] [address] Jul, 2014 [facility] [address] [id number] [address] [place] [address], [place] [address] Jul, 2014 [facility] [address] [id number] [address] [place] [address], [place] [address] Jul, 2014 [facility] [address] [id number] [address] [place] [address], [place] [address] Jul, 2014 [facility] [address] [id number] [address] [place] [address], [place] [address] b, 2014 [facility] [address] [id number] [address] [place] [address], [place] [address] 23 Jul, 2014 [facility] [address] [id number] [address] [place] [address], [place] [address] 23 Jul, 2014 [facility] [address] [id number] [address] [place] [address], [place] [address] 23 Jul, 2014 [facility] [address] [id number] [address] [place] [address], [place] [address] 20 Jul, 2014 [facility] [address] [id number] [address] [place] [address], [place] [address] 20 Jul, 2014 [facility] [address] [id number] [address] [place] [address], [place] [address] 19 Jul, 2014 [facility] [address] [id number] [address] [place] [address], [place] [address] 19 Jul, 2014 [facility] [address] [id number] [address] [place] [address], [place] [address] 17 Jul, 2014 [facility] [address] [id number] [address] [place] [address], [place] [address] 17 Jul, 2014 [facility] [address] [id number] [address] [place] [address], [place] [address] 16 Jul, 2014 [facility] [address] [id number] [address] [place] [address], [place] [address] 16 Jul, 2014 [facility] [address] [id number] [address] [place] [address], [place] [address] 16 Jul, 2014 [facility] [address] [id number] [address] [place] [address], [place] [address] 16 Jul, 2014 [facility] [address] [id number] [address] [place] [address], [place] [address] 13 Jul, 2014 [facility] [address] [id number] [address] [place] [address], [place] [address] Jul, 2014 [facility] [address] [id number] [address] [place] [address], [place] [address] Jul, 2014 [facility] [address] [id number] [address] [place] [address], [place] [address] Jul, 2014 [facility] [address] [id number] [address] [place] [address], [place] [address] Jul, 2014 [facility] [address] [id number] [address] [place] [address], [place] [address] Jul, 2014 [facility] [address] [id number] [address] [place] [address], [place] [address] Jul, [facility] [address] [id number] [address] [place] [address], [place] [address] Jul, [facility] [address] [id number] [address] [place] [address], [place] [address] Jul, [facility] [address] [id number] [address] [place] [address], [place] [address] Jul, [facility] [address] [id number] [address] [place] [address], [place] [address] Jul, [facility] [address] [id number] [address] [place] [address], [place] [address] Jul, [facility] [address] [id number] [address] [place] [address], [place] [address] Jun, [facility] [address] [id number] [address] [place] [address], [place] [address] Jun, [facility] [address] [id number] [address] [place] [address], [place] [address] Jun, [facility] [address] [id number] [address] [place] [address], [place] [address] Jun, [facility] [address] [id number] [address] [place] [address], [place] [address] Jun, [facility] [address] [id number] [address] [place] [address], [place] [address] Jun, [facility] [address] [id number] [address] [place] [address], [place] [address] Jun, [facility] [address] [id number] [address] [place] [address], [place] [address] Jun, [facility] [address] [id number] [address] [place] [address], [place] [address] Jun, [facility] [address] [id number] [address] [place] [address], [place] [address] Jun, [facility] [address] [id number] [address] [place] [address], [place] [address] Jun, [facility] [address] [id number] [address] [place] [address], [place] [address] Jun, [facility] [address] [id number] [address] [place] [address], [place] [address] Jun, [facility] [address] [id number] [address] [place] [address], [place] [address] Jun, [facility] [address] [id number] [address] [place] [address], [place] [address] Jun, [facility] [address] [id number] [address] [place] [address], [place] [address] Jun, [facility] [address] [id number] [address] [place] [address], [place] [address] Jun, [facility] [address] [id number] [address] [place] [address], [place] [address] Jun, [facility] [address] [id number] [address] [place] [address], [place] [address] Jun, [facility] [address] [id number] [address] [place] [address], [place] [address] Jun, [facility] [address] [id number] [address] [place] [address], [place] [address] May, [facility] [address] [id number] [address] [place] [address], [place] [address] May, [facility] [address] [id number] [address] [place] [address], [place] [address] May, [facility] [address] [id number] [address] [place] [address], [place] [address] May, [facility] [address] [id number] [address] [place] [address], [place] [address] May, [facility] [address] [id number] [address] [place] [address], [place] [address] May, [facility] [address] [id number] [address] [place] [address], [place] [address] May, [facility] [address] [id number] [address] [place] [address], [place] [address] May, [facility] [address] [id number] [address] [place] [address], [place] [address] May, [facility] [address] [id number] [address] [place] [address], [place] [address] May, [facility] [address] [id number] [address] [place] [address], [place] [address] May, [facility] [address] [id number] [address] [place] [address], [place] [address] 18 May, 2014 [facility] [address] [id number] [address] [place] [address], [place] [address] 18 May, 2014 [facility] [address] [id number] [address] [place] [address], [place] [address] 17 May, 2014 [facility] [address] [id number] [address] [place] [address], [place] [address] 16 May, 2014 [facility] [address] [id number] [address] [place] [address], [place] [address] 16 May, 2014 [facility] [address] [id number] [address] [place] [address], [place] [address] 15 May, 2014 [facility] [address] [id number] [address] [place] [address], [place] [address] 15 May, 2014 [facility] [address] [id number] [address] [place] [address], [place] [address] May, [facility] [address] [id number] [address] [place] [address], [place] [address] May, [facility] [address] [id number] [address] [place] [address], [place] [address] May, [facility] [address] [id number] [address] [place] [address], [place] [address] May, [facility] [address] [id number] [address] [place] [address], [place] [address] May, [facility] [address] [id number] [address] [place] [address], [place] [address] May, [facility] [address] [id number] [address] [place] [address], [place] [address] May, [facility] [address] [id number] [address] [place] [address], [place] [address] May, [facility] [address] [id number] [address] [place] [address], [place] [address] May, [facility] [address] [id number] [address] [place] [address], [place] [address] May, [facility] [address] [id number] [address] [place] [address], [place] [address] May, [facility] [address] [id number] [address] [place] [address], [place] [address] May, [facility] [address] [id number] [address] [place] [address], [place] [address] May, [facility] [address] [id number] [address] [place] [address], [place] [address] May, [facility] [address] [id number] [address] [place] [address], [place] [address] May, [facility] [address] [id number] [address] [place] [address], [place] [address] May, [facility] [address] [id number] [address] [place] [address], [place] [address] Apr, [facility] [address] [id number] [address] [place] [address], [place] [address] Apr, [facility] [address] [id number] [address] [place] [address], [place] [address] Apr, [facility] [address] [id number] [address] [place] [address], [place] [address] Apr, [facility] [address] [id number] [address] [place] [address], [place] [address] Apr, [facility] [address] [id number] [address] [place] [address], [place] [address] Apr, [facility] [address] [id number] [address] [place] [address], [place] [address] Apr, [facility] [address] [id number] [address] [place] [address], [place] [address] Apr, [facility] [address] [id number] [address] [place] [address], [place] [address] Apr, [facility] [address] [id number] [address] [place] [address], [place] [address] Apr, [facility] [address] [id number] [address] [place] [address], [place] [address] Mar, [facility] [address] [id number] [address] [place] [address], [place] [address] Mar, [facility] [address] [id number] [address] [place] [address], [place] [address] Mar, [facility] [address] [id number] [address] [place] [address], [place] [address] 31 Mar, 2013 [facility] [address] [id number] [address] [place] [address], [place] [address] 30 Mar, 2013 [facility] [address] [id number] [address] [place] [address], [place] [address] 30 Mar, 2014 [facility] [address] [id number] [address] [place] [address], [place] [address] Mar, 2013 [facility] [address] [id number] [address] [place] [address], [place] [address] 17 Mar, 2013 [facility] [address] [id number] [address] [place] [address], [place] [address] 15 Mar, 2014 [facility] [address] [id number] [address] [place] [id number] 15 Mar, 2014 [facility] [address] [id number] [address] [place] [address], [place] [address] 15 Mar, 2014 [facility] [address] [id number] [address] [place] [id number] Mar, [facility] [address] [id number] [address] [place] [address], [place] [address] Mar, [facility] [address] [id number] [address] [place] [id number] Mar, [facility] [address] [id number] [address] [place] [id number] Mar, [facility] [address] [id number] [address] [place] [id number] Mar, 2013 [facility] [address] [id number] [address] [place] [address], [place] [address] Mar, [facility] [address] [id number] [address] [place] [id number] Mar, [facility] [address] [id number] [address] [place] [id number] Mar, 2013 [facility] [address] [id number] [address] [place] [address], [place] [address] 02 Mar, 2013 [facility] [address] [id number] [address] [place] [address], [place] [address] 05 Sep, 2013 [facility] [address] [id number] [address] [place] [address], [place] [address] 05 Sep, 2013 [facility] [address] [id number] [address] [place] [address], [place] [address] 04 Sep, 2013 [facility] [address] [id number] [address] [place] [address], [place] [address] 04 Sep, 2013 [facility] [address] [id number] [address] [place] [address], [place] [address] 03 Feb, 2013 [facility] [address] [id number] [address] [place] [address], [place] [address] Feb, 2013 [facility] [address] [id number] [address] [place] [address], [place] [address] Feb, 2013 [facility] [address] [id number] [address] [place] [address], [place] [address] Feb, 2013 [facility] [address] [id number] [address] [place] [address], [place] [address] Feb, 2013 [facility] [address] [id number] [address] [place] [address], [place] [address] Feb, 2013 [facility] [address] [id number] [address] [place] [address], [place] [address] Jan, [facility] [address] [id number] [address] [place] [address], [place] [address] Jan, [facility] [address] [id number] [address] [place] [address], [place] [address] Jan, [facility] [address] [id number] [address] [place] [address], [place] [address] Jan, [facility] [address] [id number] [address] [place] [address], [place] [address] Jan, [facility] [address] [id number] [address] [place] [address], [place] [address] Jan, [facility] [address] [id number] [address] [place] [address], [place] [address] Jan, [facility] [address] [id number] [address] [place] [address], [place] [address] Jan, [facility] [address] [id number] [address] [place] [address], [place] [address] Jan, [facility] [address] [id number] [address] [place] [address], [place] [address] Jan, [facility] [address] [id number] [address] [place] [address], [place] [address] Jan, [facility] [address] [id number] [address] [place] [address], [place] [address] Jan, [facility] [address] [id number] [address] [place] [address], [place] [address] Dec, [facility] [facility] [address] [id number] [address] [place] [address], [place] [address] Dec, [facility] [address] [id number] [address] [place] [address], [place] [address] Dec, [facility] [address] [id number] [address] [place] [address], [place] [address] Dec, [facility] [address] [id number] [address] [place] [address], [place] [address] Dec, [facility] [address] [id number] [address] [place] [address], [place] [address] Dec, [facility] [address] [id number] [address] [place] [address], [place] [address] Dec, [facility] [address] [id number] [address] [place] [address], [place] [address] Dec, [facility] [address] [id number] [address] [place] [address], [place] [address] Dec, [facility] [address] [id number] [address] [place] [address], [place] [address] Dec, [facility] [address] [id number] [address] [place] [address], [place] [address] Dec, [facility] [address] [id number] [address] [place] [address], [place] [address] Dec, [facility] [address] [id number] [address] [place] [address], [place] [address] Nov, [facility] [address] [id number] [address] [place] [address], [place] [address] Nov, [facility] [address] [id number] [address] [place] [address], [place] [address] Nov, [facility] [address] [id number] [address] [place] [address], [place] [address] Nov, [facility] [address] [id number] [address] [place] [address], [place] [address] Nov, [facility] [address] [id number] [address] [place] [address], [place] [address] Nov, [facility] [address] [id number] [address] [place] [address], [place] [address] Nov, [facility] [address] [id number] [address] [place] [address], [place] [address] Nov, [facility] [address] [id number] [address] [place] [address] Nov, [facility] [address] [id number] [address] [place] [address], [place] [address] Nov, [facility] [address] [id number] [address] [place] [address], [place] [address] Nov, [facility] [address] [id number] [address] [place] [address], [place] [address] Nov, [facility] [address] [id number] [address] [place] [address], [place] [address] Nov, [facility] [address] [id number] [address] [place] [address], [place] [address] Nov, [facility] [address] [id number] [address] [place] [address], [place] [address] October, [facility] [address] [id number] [address] [place] [address], [place] [address] October, [facility] [address] [id number] [address] [place] [address], [place] [address] October, [facility] [address] [id number] [address] [place] [address], [place] [address] October, [facility] [address] [id number] [address] [place] [address], [place] [address] October, [facility] [address] [id number] [address] [place] [address], [place] [address] October, [facility] [address] [id number] [address] [place] [address], [place] [address] October, [facility] [address] [id number] [address] [place] [address], [place] [address] October, [facility] [address] [id number] [address] [place] [address], [place] [address] October, [facility] [address] [id number] [address] [place] [address], [place] [address] October, [facility] [address] [id number] [address] [place] [address], [place] [address] October, [facility] [address] [id number] [address] [place] [address], [place] [address] October, [facility] [address] [id number] [address] [place] [address], [place] [address] Sep, [facility] [address] [id number] [address] [place] [address], [place] [address] Sep, [facility] [address] [id number] [facility] [address] Sep, [facility] [address] [id number] [address] [place] [address], [place] [address] Sep, [facility] [address] [id number] [address] [place] [address], [place] [address] Sep, [facility] [address] [id number] [address] [place] [address], [place] [address] Sep, [facility] [address] [id number] [address] [place] [address], [place] [address] Aug, [facility] [address] [id number] [address] [place] [address], [place] [address] Aug, [facility] [address] [id number] [address] [place] [address], [place] [address] Aug, [facility] [address] [id number] [address] [place] [address], [place] [address] Aug, [facility] [address] [id number] [address] [place] [address], [place] [address] Aug, [facility] [address] [id number] [address] [place] [address], [place] [address] Aug, [facility] [address] [id number] [address] [place] [address], [place] [address] Jul, [facility] [address] [id number] [address] [place] [address], [place] [address] Jul, [facility] [address] [id number] [address] [place] [address], [place] [address] Jul, [facility] [address] [id number] [address] [place] [address], [place] [address] Jul, [facility] [address] [id number] [address] [place] [address], [place] [address] Jul, [facility] [address] [id number] [address] [place] [address], [place] [address] 13 Jul, 2013 [facility] [address] [id number] [address] [place] [address], [place] [address] Jul, [facility] [address] [id number] [address] [place] [address], [place] [address] Jul, [facility] [address] [id number] [address] [place] [address], [place] [address] Jul, [facility] [address] [id number] [address] [place] [address], [place] [address] Jul, [facility] [address] [id number] [address] [place] [address], [place] [address] Jun, [facility] [address] [id number] [address] [place] [address], [place] [address] Jun, [facility] [address] [id number] [address] [place] [address], [place] [address] Jun, [facility] [address] [id number] [address] [place] [address], [place] [address] Jun, [facility] [address] [id number] [address] [place] [address], [place] [address] Jun, [facility] [address] [id number] [address] [place] [address], [place] [address] Jun, [facility] [address] [id number] [address] [place] [address], [place] [address] Jun, [facility] [address] [id number] [address] [place] [address], [place] [address] Jun, [facility] [address] [id number] [address] [place] [address], [place] [address] May, [facility] [address] [id number] [address] [place] [address], [place] [address] May, [facility] [address] [id number] [address] [place] [address] [address] May, [facility] [address] [id number] [address] [place] [address], [place] [address] May, [facility] [address] [id number] [address] [place] [address], [place] [address] May, [facility] [address] [id number] [address] [place] [address], [place] [address] May, [facility] [address] [id number] [address] [place] [address], [place] [address] May, [facility] [address] [id number] [address] [place] [address], [place] [address] May, [facility] [address] [id number] [address] [place] [address], [place] [address] Apr, [facility] [address] [id number] [address] [place] [address], [place] [address] Apr, [facility] [address] [id number] [address] [place] [address] Apr, [facility] [address] [id number] [address] [place] [address] Apr, [facility] [address] [id number] [address] [place] [address] Apr, [facility] [address] [id number] [address] [place] [address] Apr, [facility] [address] [id number] [address] [place] [address] Mar, [facility] [address] [id number] [address] [place] [address] Mar, [facility] [address] [id number] [address] [place] [address] Mar, [facility] [address] [id number] [address] [place] [address] Mar, [facility] [address] [id number] [address] [place] [address], [place] [address] Mar, [facility] [address] [id number] [address] [place] [address], [place] [address] Mar, [facility] [address] [id number] [address] [place] [address], [place] [address] Mar, [facility] [address] [id number] [address] [place] [address], [place] [address] 30 Feb, 2013 [facility] [address] [id number] [address] [place] [address], [place] [address] 30 Feb, 2013 [facility] [address] [id number] [address] [place] [address], [place] [address] 27 Feb, 2013 [facility] [address] [id number] [address] [place] [address], [place] [address] Feb, [facility] [address] [id number] [address] [place] [address], [place] [address] Feb, [facility] [address] [id number] [address] [place] [address], [place] [address] Feb, [facility] [address] [id number] [address] [place] [address], [place] [address] Jan, [facility] [address] [id number] [address] [place] [address], [place] [address] Jan, [facility] [address] [id number] [address] [place] [address], [place] [address] Jan, [facility] [address] [id number] [address] [place] [address], [place] [address] Jan, [facility] [address] [id number] [address] [place] [address], [place] [address] Jan, [facility] [address] [id number] [address] [place] [address], [place] [address] Jan, [facility] [address] [id number] [address] [place] [address], [place] [address] Jan, [facility] [address] [id number] [address] [place] [address], [place] [address] Jan, [facility] [address] [id number] [address] [place] [address], [place] [address] Jan, [facility] [address] [id number] [address] [place] [address], [place] [address] Dec, [facility] [address] [id number] [address] [place] [address], [place] [address] Dec, [facility] [address] [id number] [address] [place] [address], [place] [address] Dec, [facility] [address] [id number] [address] [place] [address], [place] [address] Dec, [facility] [address] [id number] [address] [place] [address], [place] [address] Dec, [facility] [address] [id number] [address] [place] [address], [place] [address] Dec, [facility] [address] [id number] [address] [place] [address], [place] [address] Dec, [facility] [address] [id number] [address] [place] [address], [place] [address] Dec, [facility] [address] [id number] [address] [place] [address], [place] [address] Dec, [facility] [address] [id number] [address] [place] [address], [place] [address] Dec, [facility] [address] [id number] [address] [place] [address], [place] [address] Dec, [facility] [address] [id number] [address] [place] [address], [place] [address] Dec, [facility] [address] [id number] [address] [place] [address], [place] [address] Dec, [facility] [address] [id number] [address] [place] [address], [place] [address] Nov, [facility] [address] [id number] [address] [place] [address], [place] [address] Nov, [facility] [address] [id number] [address] [place] [address], [place] [address] Nov, [facility] [address] [id number] [address] [place] [address], [place] [address] Nov, [facility] [address] [id number] [address] [place] [address], [place] [address] October, [facility] [address] [id number] [address] [place] [address], [place] [address] October, [facility] [address] [id number] [address] [place] [address], [place] [address] October, [facility] [address] [id number] [address] [place] [address], [place] [address] October, [facility] [address] [id number] [address] [place] [address], [place] [address] October, [facility] [address] [id number] [address] [place] [address], [place] [address] October, [facility] [address] [id number] [address] [place] [address], [place] [address] 30 Sep, 2012 [facility] [address] [id number] [address] [place] [address], [place] [address] 29 Sep, 2012 [facility] [address] [id number] [address] [place] [address], [place] [address] 27 Sep, 2012 [facility] [address] [id number] [address] [place] [address], [place] [address] 23 Sep, 2012 [facility] [address] [id number] [address] [place] [address], [place] [address] Sep, [facility] [address] [id number] [address] [place] [address], [place] [address] 16 Sep, 2012 [facility] [address] [id number] [facility] [address] 12 Sep, 2012 [facility] [address] [id number] [address] [place] [address], [place] [address] Sep, [facility] [address] [id number] [address] [place] [address], [place] [address] Sep, [facility] [address] [id number] [address] [place] [address], [place] [address] Sep, [facility] [address] [id number] [address] [place] [address], [place] [address] Sep, [facility] [address] [id number] [address] [place] [address], [place] [address] Aug, [facility] [address] [id number] [address] [place] [address], [place] [address] Aug, [facility] [address] [id number] [address] [place] [address], [place] [address] 25 Aug, 2012 [facility] [address] [id number] [address] [place] [address], [place] [address] 21 Aug, 2012 [facility] [address] [id number] [address] [place] [address], [place] [address] 19 Aug, 2012 [facility] [address] [id number] [address] [place] [address], [place] [address] 18 Aug, 2012 [facility] [address] [id number] [address] [place] [address], [place] [address] 17 Aug, 2012 [facility] [address] [id number] [address] [place] [address], [place] [address] 15 Aug, 2012 [facility] [address] [id number] [address] [place] [address], [place] [address] 15 Aug, 2012 [facility] [address] [id number] [address] [place] [address], [place] [address] 11 Aug, 2012 [facility] [address] [id number] [address] [place] [address], [place] [address] Aug, [facility] [address] [id number] [address] [place] [address], [place] [address] Aug, [facility] [address] [id number] [address] [place] [address], [place] [address] Jul, [facility] [address] [id number] [address] [place] [address], [place] [address] Jul, [facility] [address] [id number] [address] [place] [address], [place] [address] Jul, [facility] [address] [id number] [address] [place] [address], [place] [address] Jul, [facility] [address] [id number] [address] [place] [address], [place] [address] Jul, [facility] [address] [id number] [address] [place] [address], [place] [address] Jul, [facility] [address] [id number] [address] [place] [address], [place] [address] Jul, [facility] [address] [id number] [address] [place] [address], [place] [address] Jul, [facility] [address] [id number] [address] [place] [address], [place] [address] Jul, [facility] [address] [id number] [address] [place] [id number] Jul, [facility] [address] [id number] [address] [place] [id number] May, [facility] [address] [id number] [place] [id number] May, [facility] [address] [id number] [address] [place] [id number] May, [facility] [address] [id number] [address] [place] [address], [place] [id number] 14 May, 2012 [facility] [address] [id number] [address] [place] [address], [place] [address] May, [facility] [address] [id number] [address] [place] [address], [place] [address] Apr, [facility] [place] [address] [id number] [place] [id number] Apr, [facility] [address] [facility] [id number] [address] [place] [address], [place] [address] Apr, [facility] [address] [facility] [id number] [address] [place] [address], [place] [address] Mar, [facility] [place] [address] [id number] [place] [id number] Mar, [facility] [address] [facility] [id number] [address] [place] [address], [place] [address] Mar, [facility] [place] [address] [id number] [place] [id number] Feb, [facility] [address] [facility] [id number] [address] [place] [address], [place] [address] Feb, [facility] [address] [facility] [id number] [address] [place] [address], [place] [address] Feb, [facility] [place] [address] [id number] [place] [id number] Feb, [facility] [place] [address] [id number] [place] [id number] Feb, [facility] [place] [address] [id number] [place] [id number] Jan, [facility] [address] [id number] [address] [place] [address], [place] [address] Jan, [facility] [place] [address] [id number] [place] [id number] Jan, [facility] [place] [address] [id number] [place] [id number] Jan, [facility] [place] [address] [id number] [place] [id number] Jan, [facility] [address] [id number] [address] [place] [address], [place] [address] Jan, [facility] [address] [facility] [id number] [address] [place] [address], [place] [address] Jan, [facility] [address] [facility] [id number] [address] [place] [address], [place] [address] Aug, [facility] [place] [address] [facility] [id number] [place] [id number] Aug, [facility] [address] [facility] [id number] [address] [place] [address], [place] [address] Jul, [facility] [address] [facility] [id number] [address] [place] [address], [place] [address] Jul, [facility] [address] [facility] [id number] [address] [place] [address], [place] [address] Jul, [facility] [place] [address] [facility] [id number] [place] [id number] Jul, [facility] [address] [facility] [id number] [address] [place] [address], [place] [address] Jul, [facility] [place] [address] [facility] [id number] [place] [id number] Jul, [facility] [address] [facility] [id number] [address] [place] [address], [place] [address] Jul, [facility] [place] [address] [id number] [place] [id number] Jul, [facility] [place] [address] [id number] [place] [id number] Jul, [facility] [place] [address] [id number] [place] [id number] Jul, [facility] [address] [facility] [id number] [address] [place] [address], [place] [address] May, [facility] [address] [facility] [id number] [address] [place] [address], [place] [address] May, [facility] [address] [id number] [address] [place] [id number] May, [facility] [address] [id number] [address] [place] [id number] Apr, [facility] [address] [id number] [address] [place] [phone] Jan, [facility] [address] [id number] [address] [place] [id number] Jan, [facility] [address] [id number] [address] [place] [phone] Dec, [facility] [address] [id number] [address] [place] [phone] Dec, [facility] [address] [id number] [address] [place] [id number] 16 May, 2009 [facility] [address] [id number] [address] [place] [id number] Mar, [facility] [address] [id number] [address] [place] [id number] Mar, [facility] [address] [id number] [address] [place] [id number] Jan, IMMUNIZATIONS No Known Immunizations SOCIAL HISTORY Never Assessed REASON FOR VISIT [facility] [place] V[place] SIGNS MEDICATIONS Unknown [...]
--- OUTSIDE RECORDS SUMMARY | 2020-01-28 13:03 | XMS REPORT ---
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 Heater Worker Name Role Phone Migration, Doctor Unavailable Unavailable PROBLEMS Type Condition ICD9-CM Code QKT93-MY Code Onset Dates Condition S tatus SNOMED Code Problem Chronic pain syndrome G89.4 Active 442542340 Problem Sore throat J02.9 Active 17519146 3 Problem Choriocarcinoma C58 Active 1881 76906 Problem penitentiary current use of anticoagulant Z79.01 Active 257070138 Problem History of venous thromboembolism V12.51 Active 605405082 Problem Cellulitis of unspecified part of limb L03.119 Active 591236706 Problem Gastroesophageal reflux disease without esophagitis K21.9 Active 064287766 Problem History of pulmonary embolism Z86.711 Active 010427162 Problem Pseudotumor cerebri G93.2 Active 25478863 Problem History of DVT (deep vein thrombosis) Z86.718 Active [id number] ALLERGIES No Information ENCOUNTERS Encounter Location Date Diagnosis [place] [address] 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 [id number] [address] [place] [address] Apr, Cellulitis of unspecified pa rt of limb L03.119 ; Allergic contact dermatitis due to adhesives L23.1 and Chronic pain syndrome G89.4 [facility] [address] [facility] [id number] [address] [place] [address] Apr, [place] [address] [facility] [id number] [address] [place] [address] Apr, penitentiary current use of ant icoagulant Z79.01 ; Cellulitis of unspecified part of limb L03.119 ; Chronic pain syndrome G89.4 and Anxiety F41.9 [place] [address] [address] [place] [id number] [address] [place] [address] 16 Apr, 2015 [place] [address] [place] [id number] [place] [address] Apr, [place] [address] [address] Mar, [place] [address] [place] [id number] [place] [address] Mar, [place] [address] [address] Mar, Sore throat J02.9 ; Gastroes ophageal reflux disease without esophagitis K21.9 ; Pseudotumor cerebri G93.2 ; Chronic pain syndrome G89.4 ; Choriocarcinoma C58 ; History of pulmonary embolism Z86.711 ; History of DVT (deep vein thrombosis) Z86.718 ; Anxiety F41.9 and Tachycardia R00.0 [place] [address] [address] Feb, Anxiety 300.00 and Chronic p ain 338.29 [place] [address] [place] [id number] [address] [place] [address] Feb, [place] [id number] [place] [address] Feb, [place] [address] [place] [id number] [place] [address] Jan, penitentiary current use of ant icoagulant therapy V58.61 and Dysuria 788.1 [place] [address] [place] [id number] [address] [place] [address] Jan, Dysuria 788.1 [place] [address] [place] [id number] [place] [address] Jan, Anxiety 300.00 and Chronic p ain 338.29 [place] [address] [address] Jan, [facility] [address] [address] Jan, [place] [address] [address] Jan, [place] [address] [address] Dec, Weakness 780.79 [place] [address] [address] Dec, 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 [place] [address] [address] Dec, Palpitations 785.1 ; Tremor 781.0 ; Weakness 780.79 ; penitentiary current use of anticoagulant therapy V58.61 and Yeast vaginitis 112.1 [place] [address] [address] Dec, [place] [address] [address] Dec, Cervicalgia 723.1 ; Tachycar yoseph 785.0 ; Pseudotumor cerebri 348.2 and History of venous thromboembolism V12.51 [place] [address] [address] [place] [id number] [address] [place] [address] Nov, [place] [address] [address] Nov, [place] [address] [address] Nov, Tachycardia 785.0 ; Pseudotu mor cerebri 348.2 ; Anxiety 300.00 and History of venous thromboembolism V12.51 [facility] [address] [id number] [address] [place] [address], [place] [address] Nov, [facility] [address] [id number] [address] [place] [address], [place] [address] 18 Nov, 2014 [facility] [address] [id number] [address] [place] [address], [place] [address] 16 Nov, 2014 [facility] [address] [id number] [address] [place] [address], [place] [address] Nov, [facility] [address] [id number] [address] [place] [address], [place] [address] Nov, [facility] [address] [id number] [address] [place] [address], [place] [address] Nov, [facility] [address] [id number] [address] [place] [address], [place] [address] Nov, [facility] [address] [id number] [address] [place] [address] October, [facility] [address] [id number] [address] [place] [address] October, [facility] [address] [id number] [address] [place] [address] October, Pain in thoracic spine 724.1 and Tachycardia 785.0 [facility] [address] [id number] [address] [place] [address] October, [facility] [address] [id number] [address] [place] [address] October, [facility] [address] [id number] [address] [place] [address] Sep, [facility] [address] [id number] [address] [place] [address] Sep, [facility] [address] [id number] [address] [place] [address] Aug, [facility] [address] [id number] [address] [place] [address], [place] [address] Aug, [facility] [address] [id number] [address] [place] [address], [place] [address] Aug, [facility] [address] [id number] [address] [place] [address], [place] [address] 17 Aug, 2014 [facility] [address] [id number] [address] [place] [address], [place] [address] Aug, [facility] [address] [id number] [address] [place] [address], [place] [address] 16 Aug, 2014 [facility] [address] [id number] [address] [place] [address], [place] [address] Aug, [facility] [address] [id number] [address] [place] [address], [place] [address] Aug, [facility] [address] [id number] [address] [place] [address], [place] [address] Aug, 2014 [facility] [address] [id number] [address] [place] [address], [place] [address] Aug, [facility] [address] [id number] [address] [place] [address], [place] [address] Aug, [facility] [address] [id number] [address] [place] [address], [place] [address] Aug, [facility] [address] [id number] [address] [place] [address], [place] [address] Jul, 2014 [facility] [address] [id number] [address] [place] [address], [place] [address] Jul, 2014 [facility] [address] [id number] [address] [place] [address], [place] [address] Jul, 2014 [facility] [address] [id number] [address] [place] [address], [place] [address] Jul, 2014 [facility] [address] [id number] [address] [place] [address], [place] [address] b, 2014 [facility] [address] [id number] [address] [place] [address], [place] [address] 23 Jul, 2014 [facility] [address] [id number] [address] [place] [address], [place] [address] 23 Jul, 2014 [facility] [address] [id number] [address] [place] [address], [place] [address] 23 Jul, 2014 [facility] [address] [id number] [address] [place] [address], [place] [address] 20 Jul, 2014 [facility] [address] [id number] [address] [place] [address], [place] [address] 20 Jul, 2014 [facility] [address] [id number] [address] [place] [address], [place] [address] 19 Jul, 2014 [facility] [address] [id number] [address] [place] [address], [place] [address] 19 Jul, 2014 [facility] [address] [id number] [address] [place] [address], [place] [address] 17 Jul, 2014 [facility] [address] [id number] [address] [place] [address], [place] [address] 17 Jul, 2014 [facility] [address] [id number] [address] [place] [address], [place] [address] 16 Jul, 2014 [facility] [address] [id number] [address] [place] [address], [place] [address] 16 Jul, 2014 [facility] [address] [id number] [address] [place] [address], [place] [address] 16 Jul, 2014 [facility] [address] [id number] [address] [place] [address], [place] [address] 16 Jul, 2014 [facility] [address] [id number] [address] [place] [address], [place] [address] 13 Jul, 2014 [facility] [address] [id number] [address] [place] [address], [place] [address] Jul, 2014 [facility] [address] [id number] [address] [place] [address], [place] [address] Jul, 2014 [facility] [address] [id number] [address] [place] [address], [place] [address] Jul, 2014 [facility] [address] [id number] [address] [place] [address], [place] [address] Jul, 2014 [facility] [address] [id number] [address] [place] [address], [place] [address] Jul, 2014 [facility] [address] [id number] [address] [place] [address], [place] [address] Jul, [facility] [address] [id number] [address] [place] [address], [place] [address] Jul, [facility] [address] [id number] [address] [place] [address], [place] [address] Jul, [facility] [address] [id number] [address] [place] [address], [place] [address] Jul, [facility] [address] [id number] [address] [place] [address], [place] [address] Jul, [facility] [address] [id number] [address] [place] [address], [place] [address] Jul, [facility] [address] [id number] [address] [place] [address], [place] [address] Jun, [facility] [address] [id number] [address] [place] [address], [place] [address] Jun, [facility] [address] [id number] [address] [place] [address], [place] [address] Jun, [facility] [address] [id number] [address] [place] [address], [place] [address] Jun, [facility] [address] [id number] [address] [place] [address], [place] [address] Jun, [facility] [address] [id number] [address] [place] [address], [place] [address] Jun, [facility] [address] [id number] [address] [place] [address], [place] [address] Jun, [facility] [address] [id number] [address] [place] [address], [place] [address] Jun, [facility] [address] [id number] [address] [place] [address], [place] [address] Jun, [facility] [address] [id number] [address] [place] [address], [place] [address] Jun, [facility] [address] [id number] [address] [place] [address], [place] [address] Jun, [facility] [address] [id number] [address] [place] [address], [place] [address] Jun, [facility] [address] [id number] [address] [place] [address], [place] [address] Jun, [facility] [address] [id number] [address] [place] [address], [place] [address] Jun, [facility] [address] [id number] [address] [place] [address], [place] [address] Jun, [facility] [address] [id number] [address] [place] [address], [place] [address] Jun, [facility] [address] [id number] [address] [place] [address], [place] [address] Jun, [facility] [address] [id number] [address] [place] [address], [place] [address] Jun, [facility] [address] [id number] [address] [place] [address], [place] [address] Jun, [facility] [address] [id number] [address] [place] [address], [place] [address] Jun, [facility] [address] [id number] [address] [place] [address], [place] [address] May, [facility] [address] [id number] [address] [place] [address], [place] [address] May, [facility] [address] [id number] [address] [place] [address], [place] [address] May, [facility] [address] [id number] [address] [place] [address], [place] [address] May, [facility] [address] [id number] [address] [place] [address], [place] [address] May, [facility] [address] [id number] [address] [place] [address], [place] [address] May, [facility] [address] [id number] [address] [place] [address], [place] [address] May, [facility] [address] [id number] [address] [place] [address], [place] [address] May, [facility] [address] [id number] [address] [place] [address], [place] [address] May, [facility] [address] [id number] [address] [place] [address], [place] [address] May, [facility] [address] [id number] [address] [place] [address], [place] [address] May, [facility] [address] [id number] [address] [place] [address], [place] [address] 18 May, 2014 [facility] [address] [id number] [address] [place] [address], [place] [address] 18 May, 2014 [facility] [address] [id number] [address] [place] [address], [place] [address] 17 May, 2014 [facility] [address] [id number] [address] [place] [address], [place] [address] 16 May, 2014 [facility] [address] [id number] [address] [place] [address], [place] [address] 16 May, 2014 [facility] [address] [id number] [address] [place] [address], [place] [address] 15 May, 2014 [facility] [address] [id number] [address] [place] [address], [place] [address] 15 May, 2014 [facility] [address] [id number] [address] [place] [address], [place] [address] May, [facility] [address] [id number] [address] [place] [address], [place] [address] May, [facility] [address] [id number] [address] [place] [address], [place] [address] May, [facility] [address] [id number] [address] [place] [address], [place] [address] May, [facility] [address] [id number] [address] [place] [address], [place] [address] May, [facility] [address] [id number] [address] [place] [address], [place] [address] May, [facility] [address] [id number] [address] [place] [address], [place] [address] May, [facility] [address] [id number] [address] [place] [address], [place] [address] May, [facility] [address] [id number] [address] [place] [address], [place] [address] May, [facility] [address] [id number] [address] [place] [address], [place] [address] May, [facility] [address] [id number] [address] [place] [address], [place] [address] May, [facility] [address] [id number] [address] [place] [address], [place] [address] May, [facility] [address] [id number] [address] [place] [address], [place] [address] May, [facility] [address] [id number] [address] [place] [address], [place] [address] May, [facility] [address] [id number] [address] [place] [address], [place] [address] May, [facility] [address] [id number] [address] [place] [address], [place] [address] May, [facility] [address] [id number] [address] [place] [address], [place] [address] Apr, [facility] [address] [id number] [address] [place] [address], [place] [address] Apr, [facility] [address] [id number] [address] [place] [address], [place] [address] Apr, [facility] [address] [id number] [address] [place] [address], [place] [address] Apr, [facility] [address] [id number] [address] [place] [address], [place] [address] Apr, [facility] [address] [id number] [address] [place] [address], [place] [address] Apr, [facility] [address] [id number] [address] [place] [address], [place] [address] Apr, [facility] [address] [id number] [address] [place] [address], [place] [address] Apr, [facility] [address] [id number] [address] [place] [address], [place] [address] Apr, [facility] [address] [id number] [address] [place] [address], [place] [address] Apr, [facility] [address] [id number] [address] [place] [address], [place] [address] Mar, [facility] [address] [id number] [address] [place] [address], [place] [address] Mar, [facility] [address] [id number] [address] [place] [address], [place] [address] Mar, [facility] [address] [id number] [address] [place] [address], [place] [address] 31 Mar, 2013 [facility] [address] [id number] [address] [place] [address], [place] [address] 30 Mar, 2013 [facility] [address] [id number] [address] [place] [address], [place] [address] 30 Mar, 2014 [facility] [address] [id number] [address] [place] [address], [place] [address] Mar, 2013 [facility] [address] [id number] [address] [place] [address], [place] [address] 17 Mar, 2013 [facility] [address] [id number] [address] [place] [address], [place] [address] 15 Mar, 2014 [facility] [address] [id number] [address] [place] [address] 15 Mar, 2014 [facility] [address] [id number] [address] [place] [address], [place] [address] 15 Mar, 2014 [facility] [address] [id number] [address] [place] [id number] Mar, [facility] [address] [id number] [address] [place] [address], [place] [address] Mar, [facility] [address] [id number] [address] [place] [id number] Mar, [facility] [address] [id number] [address] [place] [id number] Mar, [facility] [address] [id number] [address] [place] [id number] Mar, 2013 [facility] [address] [id number] [address] [place] [address], [place] [address] Mar, [facility] [address] [id number] [address] [place] [id number] Mar, [facility] [address] [id number] [address] [place] [id number] Mar, 2013 [facility] [address] [id number] [address] [place] [address], [place] [address] 02 Mar, 2013 [facility] [address] [id number] [address] [place] [address], [place] [address] 05 Sep, 2013 [facility] [address] [id number] [address] [place] [address], [place] [address] 05 Sep, 2013 [facility] [address] [id number] [address] [place] [address], [place] [address] 04 Sep, 2013 [facility] [address] [id number] [address] [place] [address], [place] [address] 04 Sep, 2013 [facility] [address] [id number] [address] [place] [address], [place] [address] 03 Feb, 2013 [facility] [address] [id number] [address] [place] [address], [place] [address] Feb, 2013 [facility] [address] [id number] [address] [place] [address], [place] [address] Feb, 2013 [facility] [address] [id number] [address] [place] [address], [place] [address] Feb, 2013 [facility] [address] [id number] [address] [place] [address], [place] [address] Feb, 2013 [facility] [address] [id number] [address] [place] [address], [place] [address] Feb, 2013 [facility] [address] [id number] [address] [place] [address], [place] [address] Jan, [facility] [address] [id number] [address] [place] [address], [place] [address] Jan, [facility] [address] [id number] [address] [place] [address], [place] [address] Jan, [facility] [address] [id number] [address] [place] [address], [place] [address] Jan, [facility] [address] [id number] [address] [place] [address], [place] [address] Jan, [facility] [address] [id number] [address] [place] [address], [place] [address] Jan, [facility] [address] [id number] [address] [place] [address], [place] [address] Jan, [facility] [address] [id number] [address] [place] [address], [place] [address] Jan, [facility] [address] [id number] [address] [place] [address], [place] [address] Jan, [facility] [address] [id number] [address] [place] [address], [place] [address] Jan, [facility] [address] [id number] [address] [place] [address], [place] [address] Jan, [facility] [address] [id number] [address] [place] [address], [place] [address] Jan, [facility] [address] [id number] [address] [place] [address], [place] [address] Dec, [facility] [address] [id number] [address] [place] [address], [place] [address] Dec, [facility] [address] [id number] [address] [place] [address], [place] [address] Dec, [facility] [address] [id number] [address] [place] [address], [place] [address] Dec, [facility] [address] [id number] [address] [place] [address], [place] [address] Dec, [facility] [address] [id number] [address] [place] [address], [place] [address] Dec, [facility] [address] [id number] [address] [place] [address], [place] [address] Dec, [facility] [address] [id number] [address] [place] [address], [place] [address] Dec, [facility] [address] [id number] [address] [place] [address], [place] [address] Dec, [facility] [address] [id number] [address] [place] [address], [place] [address] Dec, [facility] [address] [id number] [address] [place] [address], [place] [address] Dec, [facility] [address] [id number] [address] [place] [address], [place] [address] Dec, [facility] [address] [id number] [address] [place] [address], [place] [address] Nov, [facility] [address] [id number] [address] [place] [address], [place] [address] Nov, [facility] [address] [id number] [address] [place] [address], [place] [address] Nov, [facility] [address] [id number] [address] [place] [address], [place] [address] Nov, [facility] [address] [id number] [address] [place] [address], [place] [address] Nov, [facility] [address] [id number] [address] [place] [address], [place] [address] Nov, [facility] [address] [id number] [address] [place] [address], [place] [address] Nov, [facility] [address] [id number] [address] [place] [address], [place] [address] Nov, [facility] [address] [id number] [address] [place] [address] Nov, [facility] [address] [id number] [address] [place] [address], [place] [address] Nov, [facility] [address] [id number] [address] [place] [address], [place] [address] Nov, [facility] [address] [id number] [address] [place] [address], [place] [address] Nov, [facility] [address] [id number] [address] [place] [address], [place] [address] Nov, [facility] [address] [id number] [address] [place] [address], [place] [address] Nov, [facility] [address] [id number] [address] [place] [address], [place] [address] October, [facility] [address] [id number] [address] [place] [address], [place] [address] October, [facility] [address] [id number] [address] [place] [address], [place] [address] October, [facility] [address] [id number] [address] [place] [address], [place] [address] October, [facility] [address] [id number] [address] [place] [address], [place] [address] October, [facility] [address] [id number] [address] [place] [address], [place] [address] October, [facility] [address] [id number] [address] [place] [address], [place] [address] October, [facility] [address] [id number] [address] [place] [address], [place] [address] October, [facility] [address] [id number] [address] [place] [address], [place] [address] October, [facility] [address] [id number] [address] [place] [address], [place] [address] October, [facility] [address] [id number] [address] [place] [address], [place] [address] October, [facility] [address] [id number] [address] [place] [address], [place] [address] October, [facility] [address] [id number] [address] [place] [address], [place] [address] Sep, [facility] [address] [id number] [address] [place] [address], [place] [address] Sep, [facility] [address] [id number] [facility] [address] Sep, [facility] [address] [id number] [address] [place] [address], [place] [address] Sep, [facility] [address] [id number] [address] [place] [address], [place] [address] Sep, [facility] [address] [id number] [address] [place] [address], [place] [address] Sep, [facility] [address] [id number] [address] [place] [address], [place] [address] Aug, [facility] [address] [id number] [address] [place] [address], [place] [address] Aug, [facility] [address] [id number] [address] [place] [address], [place] [address] Aug, [facility] [address] [id number] [address] [place] [address], [place] [address] Aug, [facility] [address] [id number] [address] [place] [address], [place] [address] Aug, [facility] [address] [id number] [address] [place] [address], [place] [address] Aug, [facility] [address] [id number] [address] [place] [address], [place] [address] Jul, [facility] [address] [id number] [address] [place] [address], [place] [address] Jul, [facility] [address] [id number] [address] [place] [address], [place] [address] Jul, [facility] [address] [id number] [address] [place] [address], [place] [address] Jul, [facility] [address] [id number] [address] [place] [address], [place] [address] Jul, [facility] [address] [id number] [address] [place] [address], [place] [address] 13 Jul, 2013 [facility] [address] [id number] [address] [place] [address], [place] [address] Jul, [facility] [address] [id number] [address] [place] [address], [place] [address] Jul, [facility] [address] [id number] [address] [place] [address], [place] [address] Jul, [facility] [address] [id number] [address] [place] [address], [place] [address] Jul, [facility] [address] [id number] [address] [place] [address], [place] [address] Jun, [facility] [address] [id number] [address] [place] [address], [place] [address] Jun, [facility] [address] [id number] [address] [place] [address], [place] [address] Jun, [facility] [address] [id number] [address] [place] [address], [place] [address] Jun, [facility] [address] [id number] [address] [place] [address], [place] [address] Jun, [facility] [address] [id number] [address] [place] [address], [place] [address] Jun, [facility] [address] [id number] [address] [place] [address], [place] [address] Jun, [facility] [address] [id number] [address] [place] [address], [place] [address] Jun, [facility] [address] [id number] [address] [place] [address], [place] [address] May, [facility] [address] [id number] [address] [place] [address], [place] [address] May, [facility] [address] [id number] [address] [place] [address] [address] May, [facility] [address] [id number] [address] [place] [address], [place] [address] May, [facility] [address] [id number] [address] [place] [address], [place] [address] May, [facility] [address] [id number] [address] [place] [address], [place] [address] May, [facility] [address] [id number] [address] [place] [address], [place] [address] May, [facility] [address] [id number] [address] [place] [address], [place] [address] May, [facility] [address] [id number] [address] [place] [address], [place] [address] Apr, [facility] [address] [id number] [address] [place] [address], [place] [address] Apr, [facility] [address] [id number] [address] [place] [address] Apr, [facility] [address] [id number] [address] [place] [address] Apr, [facility] [address] [id number] [address] [place] [address] Apr, [facility] [address] [id number] [address] [place] [address] Apr, [facility] [address] [id number] [address] [place] [address] Mar, [facility] [address] [id number] [address] [place] [address] Mar, [facility] [address] [id number] [address] [place] [address] Mar, [facility] [address] [id number] [address] [place] [address] Mar, [facility] [address] [id number] [address] [place] [address], [place] [address] Mar, [facility] [address] [id number] [address] [place] [address], [place] [address] Mar, [facility] [address] [id number] [address] [place] [address], [place] [address] Mar, [facility] [address] [id number] [address] [place] [address], [place] [address] 30 Feb, 2013 [facility] [address] [id number] [address] [place] [address], [place] [address] 30 Feb, 2013 [facility] [address] [id number] [address] [place] [address], [place] [address] 27 Feb, 2013 [facility] [address] [id number] [address] [place] [address], [place] [address] Feb, [facility] [address] [id number] [address] [place] [address], [place] [address] Feb, [facility] [address] [id number] [address] [place] [address], [place] [address] Feb, [facility] [address] [id number] [address] [place] [address], [place] [address] Jan, [facility] [address] [id number] [address] [place] [address], [place] [address] Jan, [facility] [address] [id number] [address] [place] [address], [place] [address] Jan, [facility] [address] [id number] [address] [place] [address], [place] [address] Jan, [facility] [address] [id number] [address] [place] [address], [place] [address] Jan, [facility] [address] [id number] [address] [place] [address], [place] [address] Jan, [facility] [address] [id number] [address] [place] [address], [place] [address] Jan, [facility] [address] [id number] [address] [place] [address], [place] [address] Jan, [facility] [address] [id number] [address] [place] [address], [place] [address] Jan, [facility] [address] [id number] [address] [place] [address], [place] [address] Dec, [facility] [address] [id number] [address] [place] [address], [place] [address] Dec, [facility] [address] [id number] [address] [place] [address], [place] [address] Dec, [facility] [address] [id number] [address] [place] [address], [place] [address] Dec, [facility] [address] [id number] [address] [place] [address], [place] [address] Dec, [facility] [address] [id number] [address] [place] [address], [place] [address] Dec, [facility] [address] [id number] [address] [place] [address], [place] [address] Dec, [facility] [address] [id number] [address] [place] [address], [place] [address] Dec, [facility] [address] [id number] [address] [place] [address], [place] [address] Dec, [facility] [address] [id number] [address] [place] [address], [place] [address] Dec, [facility] [address] [id number] [address] [place] [address], [place] [address] Dec, [facility] [address] [id number] [address] [place] [address], [place] [address] Dec, [facility] [address] [id number] [address] [place] [address], [place] [address] Dec, [facility] [address] [id number] [address] [place] [address], [place] [address] Nov, [facility] [address] [id number] [address] [place] [address], [place] [address] Nov, [facility] [address] [id number] [address] [place] [address], [place] [address] Nov, [facility] [address] [id number] [address] [place] [address], [place] [address] Nov, [facility] [address] [id number] [address] [place] [address], [place] [address] October, [facility] [address] [id number] [address] [place] [address], [place] [address] October, [facility] [address] [id number] [address] [place] [address], [place] [address] October, [facility] [address] [id number] [address] [place] [address], [place] [address] October, [facility] [address] [id number] [address] [place] [address], [place] [address] October, [facility] [address] [id number] [address] [place] [address], [place] [address] October, [facility] [address] [id number] [address] [place] [address], [place] [address] 30 Sep, 2012 [facility] [address] [id number] [address] [place] [address], [place] [address] 29 Sep, 2012 [facility] [address] [id number] [address] [place] [address], [place] [address] 27 Sep, 2012 [facility] [address] [id number] [address] [place] [address], [place] [address] 23 Sep, 2012 [facility] [address] [id number] [address] [place] [address], [place] [address] Sep, [facility] [address] [id number] [address] [place] [address], [place] [address] 16 Sep, 2012 [facility] [address] [id number] [facility] [place] [address] 12 Sep, 2012 [facility] [address] [id number] [address] [place] [address], [place] [address] Sep, [facility] [address] [id number] [address] [place] [address], [place] [address] Sep, [facility] [address] [id number] [address] [place] [address], [place] [address] Sep, [facility] [address] [id number] [address] [place] [address], [place] [address] Sep, [facility] [address] [id number] [address] [place] [address], [place] [address] Aug, [facility] [address] [id number] [address] [place] [address], [place] [address] Aug, [facility] [address] [id number] [address] [place] [address], [place] [address] 25 Aug, 2012 [facility] [address] [id number] [address] [place] [address], [place] [address] 21 Aug, 2012 [facility] [address] [id number] [address] [place] [address], [place] [address] 19 Aug, 2012 [facility] [address] [id number] [address] [place] [address], [place] [address] 18 Aug, 2012 [facility] [address] [id number] [address] [place] [address], [place] [address] 17 Aug, 2012 [facility] [address] [id number] [address] [place] [address], [place] [address] 15 Aug, 2012 [facility] [address] [id number] [address] [place] [address], [place] [address] 15 Aug, 2012 [facility] [address] [id number] [address] [place] [address], [place] [address] 11 Aug, 2012 [facility] [address] [id number] [address] [place] [address], [place] [address] Aug, [facility] [address] [id number] [address] [place] [address], [place] [address] Aug, [facility] [address] [id number] [address] [place] [address], [place] [address] Jul, [facility] [address] [id number] [address] [place] [address], [place] [address] Jul, [facility] [address] [id number] [address] [place] [address], [place] [address] Jul, [facility] [address] [id number] [address] [place] [address], [place] [address] Jul, [facility] [address] [id number] [address] [place] [address], [place] [address] Jul, [facility] [address] [id number] [address] [place] [address], [place] [address] Jul, [facility] [address] [id number] [address] [place] [address], [place] [address] Jul, [facility] [address] [id number] [address] [place] [address], [place] [address] Jul, [facility] [address] [id number] [address] [place] [address], [place] [address] Jul, [facility] [address] [id number] [address] [place] [address] Jul, [facility] [address] [id number] [address] [place] [address] May, [facility] [address] [id number] [place] [id number] May, [facility] [address] [id number] [address] [place] [address] May, [facility] [address] [id number] [address] [place] [address], [place] [address] 14 May, 2012 [facility] [address] [id number] [address] [place] [address], [place] [address] May, [facility] [address] [id number] [address] [place] [address], [place] [address] Apr, [facility] [address] [id number] [place] [id number] Apr, [facility] [address] [facility] [id number] [address] [place] [address], [place] [address] Apr, [facility] [address] [facility] [id number] [address] [place] [address], [place] [address] Mar, [facility] [address] [id number] [place] [id number] Mar, [facility] [address] [facility] [id number] [address] [place] [address], [place] [address] Mar, [facility] [place] [address] [id number] [place] [id number] Feb, [facility] [address] [facility] [id number] [address] [place] [address], [place] [address] Feb, [facility] [address] [facility] [id number] [address] [place] [address], [place] [address] Feb, [facility] [address] [id number] [place] [id number] Feb, [facility] [address] [id number] [place] [id number] Feb, [facility] [address] [id number] [place] [id number] Jan, [facility] [address] [id number] [address] [place] [address], [place] [address] Jan, [facility] [address] [id number] [place] [id number] Jan, [facility] [address] [id number] [place] [id number] Jan, [facility] [address] [id number] [place] [id number] Jan, [facility] [address] [id number] [address] [place] [address], [place] [address] Jan, [facility] [address] [facility] [id number] [address] [place] [address], [place] [address] Jan, [facility] [address] [facility] [id number] [address] [place] [address], [place] [address] Aug, [facility] [place] [address] [facility] [id number] [place] [id number] Aug, [facility] [address] [facility] [id number] [address] [place] [address], [place] [address] Jul, [facility] [address] [facility] [id number] [address] [place] [address], [place] [address] Jul, [facility] [address] [facility] [id number] [address] [place] [address], [place] [address] Jul, [facility] [place] [address] [facility] [id number] [place] [id number] Jul, [facility] [address] [facility] [id number] [address] [place] [address], [place] [address] Jul, [facility] [place] [address] [facility] [id number] [place] [id number] Jul, [facility] [address] [facility] [id number] [address] [place] [address], [place] [address] Jul, [facility] [address] [id number] [place] [id number] Jul, [facility] [place] [address] [id number] [place] [id number] Jul, [facility] [place] [address] [id number] [place] [id number] Jul, [facility] [address] [facility] [id number] [address] [place] [address], [place] [address] May, [facility] [address] [facility] [id number] [address] [place] [address], [place] [address] May, [facility] [address] [id number] [address] [place] [id number] May, [facility] [address] [id number] [address] [place] [phone] Apr, [facility] [address] [id number] [address] [place] [id number] Jan, [facility] [address] [id number] [address] [place] [phone] Jan, [facility] [address] [id number] [address] [place] [id number] Dec, [facility] [address] [id number] [address] [place] [id number] Dec, [facility] [address] [id number] [address] [place] [id number] 16 May, 2009 [facility] [address] [id number] [address] [place] [id number] Mar, [facility] [address] [id number] [address] [place] [id number] Mar, [facility] [address] [id number] [address] [place] [phone] Jan, IMMUNIZATIONS No Known Immunizations SOCIAL HISTORY Never Assessed REASON FOR VISIT [facility] [place] CARE VITAL SIGNS MEDICATIONS Unknown [...]
--- OUTSIDE RECORDS SUMMARY | 2020-01-28 13:04 | XMS REPORT ---
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 Role Phone Migration, Doctor Unavailable Unavailable PROBLEMS Type Condition ICD9-CM Code EPM66-BV Code Onset Dates Condition S tatus SNOMED Code Problem Chronic pain syndrome G89.4 Active 456855783 Problem Sore throat J02.9 Active 53419280 3 Problem Choriocarcinoma C58 Active 1881 43087 Problem penitentiary current use of anticoagulant Z79.01 Active 193691763 Problem History of venous thromboembolism V12.51 Active 660098120 Problem Cellulitis of unspecified part of limb L03.119 Active 945133231 Problem Gastroesophageal reflux disease without esophagitis K21.9 Active 953377679 Problem History of pulmonary embolism Z86.711 Active 228501633 Problem Pseudotumor cerebri G93.2 Active 86731389 Problem History of DVT (deep vein thrombosis) Z86.718 Active 178499980 ALLERGIES No Information ENCOUNTERS Encounter Location Date Diagnosis [place] [address] [address] [facility] [id number] [address] [place] [id number] Apr, 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 [place] [address] [facility] [id number] [address] [place] [id number] Apr, 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 [place] [address] N [facility] [id number] [address] [place] [id number] Apr, Cellulitis of unspecified pa rt of limb L03.119 ; Allergic contact dermatitis due to adhesives L23.1 and Chronic pain syndrome G89.4 [facility] [address] [facility] [id number] [address] [place] [id number] Apr, [place] [address] [address] [facility] [id number] [address] [place] [id number] Apr, penitentiary current use of ant icoagulant Z79.01 ; Cellulitis of unspecified part of limb L03.119 ; Chronic pain syndrome G89.4 and Anxiety F41.9 [place] [address] [address] [place] [id number] [address] [place] [id number] 16 Apr, 2015 [place] [address] [address] [place] [id number] [place] [phone] Apr, [place] [address] [id number] Mar, [place] [address] [address] [place] [id number] [place] [phone] Mar, [place] [address] [id number] Mar, Sore throat J02.9 ; Gastroes ophageal reflux disease without esophagitis K21.9 ; Pseudotumor cerebri G93.2 ; Chronic pain syndrome G89.4 ; Choriocarcinoma C58 ; History of pulmonary embolism Z86.711 ; History of DVT (deep vein thrombosis) Z86.718 ; Anxiety F41.9 and Tachycardia R00.0 [place] [address] [id number] Feb, Anxiety 300.00 and Chronic p ain 338.29 [place] [address] [address] [place] [id number] [address] [place] [phone] Feb, [place] [id number] [place] [phone] Feb, [place] [address] [address] [place] [id number] [place] [id number] Jan, penitentiary current use of ant icoagulant therapy V58.61 and Dysuria 788.1 [place] [address] [address] [place] [id number] [address] [place] [id number] Jan, Dysuria 788.1 [place] [address] [address] [place] [id number] [place] [phone] Jan, Anxiety 300.00 and Chronic p ain 338.29 [place] [address] [address] Jan, [facility] [address] [id number] Jan, [place] [address] [address] Jan, [place] [address] [id number] Dec, Weakness 780.79 [place] [address] [id number] Dec, 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 [place] [address] [address] Dec, Palpitations 785.1 ; Tremor 781.0 ; Weakness 780.79 ; penitentiary current use of anticoagulant therapy V58.61 and Yeast vaginitis 112.1 [place] [address] [address] Dec, [place] [address] [address] Dec, Cervicalgia 723.1 ; Tachycar yoseph 785.0 ; Pseudotumor cerebri 348.2 and History of venous thromboembolism V12.51 [place] [address] [address] [place] [id number] [address] [place] [phone] Nov, [place] [address] [address] Nov, [place] [address] [address] Nov, Tachycardia 785.0 ; Pseudotu mor cerebri 348.2 ; Anxiety 300.00 and History of venous thromboembolism V12.51 [facility] [address] [id number] [address] [place] [address], [place] [address] Nov, [facility] [address] [id number] [address] [place] [address], [place] [address] 18 Nov, 2014 [facility] [address] [id number] [address] [place] [address], [place] [address] 16 Nov, 2014 [facility] [address] [id number] [address] [place] [address], [place] [address] Nov, [facility] [address] [id number] [address] [place] [address], [place] [address] Nov, [facility] [address] [id number] [address] [place] [address], [place] [address] Nov, [facility] [address] [id number] [address] [place] [address], [place] [address] Nov, [facility] [address] [id number] [address] [place] [phone] October, [facility] [address] [id number] [address] [place] [id number] October, [facility] [address] [id number] [address] [place] [id number] October, Pain in thoracic spine 724.1 and Tachycardia 785.0 [facility] [address] [id number] [address] [place] [phone] October, [facility] [address] [id number] [address] [place] [id number] October, [facility] [address] [id number] [address] [place] [phone] Sep, [facility] [address] [id number] [address] [place] [phone] Sep, [facility] [address] [id number] [address] [place] [phone] Aug, [facility] [address] [id number] [address] [place] [address], [place] [address] Aug, [facility] [address] [id number] [address] [place] [address], [place] [address] Aug, [facility] [address] [id number] [address] [place] [address], [place] [address] 17 Aug, 2014 [facility] [address] [id number] [address] [place] [address], [place] [address] Aug, [facility] [address] [id number] [address] [place] [address], [place] [address] 16 Aug, 2014 [facility] [address] [id number] [address] [place] [address], [place] [address] Aug, [facility] [address] [id number] [address] [place] [address], [place] [address] Aug, [facility] [address] [id number] [address] [place] [address], [place] [address] Aug, 2014 [facility] [address] [id number] [address] [place] [address], [place] [address] Aug, [facility] [address] [id number] [address] [place] [address], [place] [address] Aug, [facility] [address] [id number] [address] [place] [address], [place] [address] Aug, [facility] [address] [id number] [address] [place] [address], [place] [address] Jul, 2014 [facility] [address] [id number] [address] [place] [address], [place] [address] Jul, 2014 [facility] [address] [id number] [address] [place] [address], [place] [address] Jul, 2014 [facility] [address] [id number] [address] [place] [address], [place] [address] Jul, 2014 [facility] [address] [id number] [address] [place] [address], [place] [address] b, 2014 [facility] [address] [id number] [address] [place] [address], [place] [address] 23 Jul, 2014 [facility] [address] [id number] [address] [place] [address], [place] [address] 23 Jul, 2014 [facility] [address] [id number] [address] [place] [address], [place] [address] 23 Jul, 2014 [facility] [address] [id number] [address] [place] [address], [place] [address] 20 Jul, 2014 [facility] [address] [id number] [address] [place] [address], [place] [address] 20 Jul, 2014 [facility] [address] [id number] [address] [place] [address], [place] [address] 19 Jul, 2014 [facility] [address] [id number] [address] [place] [address], [place] [address] 19 Jul, 2014 [facility] [address] [id number] [address] [place] [address], [place] [address] 17 Jul, 2014 [facility] [address] [id number] [address] [place] [address], [place] [address] 17 Jul, 2014 [facility] [address] [id number] [address] [place] [address], [place] [address] 16 Jul, 2014 [facility] [address] [id number] [address] [place] [address], [place] [address] 16 Jul, 2014 [facility] [address] [id number] [address] [place] [address], [place] [address] 16 Jul, 2014 [facility] [address] [id number] [address] [place] [address], [place] [address] 16 Jul, 2014 [facility] [address] [id number] [address] [place] [address], [place] [address] 13 Jul, 2014 [facility] [address] [id number] [address] [place] [address], [place] [address] Jul, 2014 [facility] [address] [id number] [address] [place] [address], [place] [address] Jul, 2014 [facility] [address] [id number] [address] [place] [address], [place] [address] Jul, 2014 [facility] [address] [id number] [address] [place] [address], [place] [address] Jul, 2014 [facility] [address] [id number] [address] [place] [address], [place] [address] Jul, 2014 [facility] [address] [id number] [address] [place] [address], [place] [address] Jul, [facility] [address] [id number] [address] [place] [address], [place] [address] Jul, [facility] [address] [id number] [address] [place] [address], [place] [address] Jul, [facility] [address] [id number] [address] [place] [address], [place] [address] Jul, [facility] [address] [id number] [address] [place] [address], [place] [address] Jul, [facility] [address] [id number] [address] [place] [address], [place] [address] Jul, [facility] [address] [id number] [address] [place] [address], [place] [address] Jun, [facility] [address] [id number] [address] [place] [address], [place] [address] Jun, [facility] [address] [id number] [address] [place] [address], [place] [address] Jun, [facility] [address] [id number] [address] [place] [address], [place] [address] Jun, [facility] [address] [id number] [address] [place] [address], [place] [address] Jun, [facility] [address] [id number] [address] [place] [address], [place] [address] Jun, [facility] [address] [id number] [address] [place] [address], [place] [address] Jun, [facility] [address] [id number] [address] [place] [address], [place] [address] Jun, [facility] [address] [id number] [address] [place] [address], [place] [address] Jun, [facility] [address] [id number] [address] [place] [address], [place] [address] Jun, [facility] [address] [id number] [address] [place] [address], [place] [address] Jun, [facility] [address] [id number] [address] [place] [address], [place] [address] Jun, [facility] [address] [id number] [address] [place] [address], [place] [address] Jun, [facility] [address] [id number] [address] [place] [address], [place] [address] Jun, [facility] [address] [id number] [address] [place] [address], [place] [address] Jun, [facility] [address] [id number] [address] [place] [address], [place] [address] Jun, [facility] [address] [id number] [address] [place] [address], [place] [address] Jun, [facility] [address] [id number] [address] [place] [address], [place] [address] Jun, [facility] [address] [id number] [address] [place] [address], [place] [address] Jun, [facility] [address] [id number] [address] [place] [address], [place] [address] Jun, [facility] [address] [id number] [address] [place] [address], [place] [address] May, [facility] [address] [id number] [address] [place] [address], [place] [address] May, [facility] [address] [id number] [address] [place] [address], [place] [address] May, [facility] [address] [id number] [address] [place] [address], [place] [address] May, [facility] [address] [id number] [address] [place] [address], [place] [address] May, [facility] [address] [id number] [address] [place] [address], [place] [address] May, [facility] [address] [id number] [address] [place] [address], [place] [address] May, [facility] [address] [id number] [address] [place] [address], [place] [address] May, [facility] [address] [id number] [address] [place] [address], [place] [address] May, [facility] [address] [id number] [address] [place] [address], [place] [address] May, [facility] [address] [id number] [address] [place] [address], [place] [address] May, [facility] [address] [id number] [address] [place] [address], [place] [address] 18 May, 2014 [facility] [address] [id number] [address] [place] [address], [place] [address] 18 May, 2014 [facility] [address] [id number] [address] [place] [address], [place] [address] 17 May, 2014 [facility] [address] [id number] [address] [place] [address], [place] [address] 16 May, 2014 [facility] [address] [id number] [address] [place] [address], [place] [address] 16 May, 2014 [facility] [address] [id number] [address] [place] [address], [place] [address] 15 May, 2014 [facility] [address] [id number] [address] [place] [address], [place] [address] 15 May, 2014 [facility] [address] [id number] [address] [place] [address], [place] [address] May, [facility] [address] [id number] [address] [place] [address], [place] [address] May, [facility] [address] [id number] [address] [place] [address], [place] [address] May, [facility] [address] [id number] [address] [place] [address], [place] [address] May, [facility] [address] [id number] [address] [place] [address], [place] [address] May, [facility] [address] [id number] [address] [place] [address], [place] [address] May, [facility] [address] [id number] [address] [place] [address], [place] [address] May, [facility] [address] [id number] [address] [place] [address], [place] [address] May, [facility] [address] [id number] [address] [place] [address], [place] [address] May, [facility] [address] [id number] [address] [place] [address], [place] [address] May, [facility] [address] [id number] [address] [place] [address], [place] [address] May, [facility] [address] [id number] [address] [place] [address], [place] [address] May, [facility] [address] [id number] [address] [place] [address], [place] [address] May, [facility] [address] [id number] [address] [place] [address], [place] [address] May, [facility] [address] [id number] [address] [place] [address], [place] [address] May, [facility] [address] [id number] [address] [place] [address], [place] [address] May, [facility] [address] [id number] [address] [place] [address], [place] [address] Apr, [facility] [address] [id number] [address] [place] [address], [place] [address] Apr, [facility] [address] [id number] [address] [place] [address], [place] [address] Apr, [facility] [address] [id number] [address] [place] [address], [place] [address] Apr, [facility] [address] [id number] [address] [place] [address], [place] [address] Apr, [facility] [address] [id number] [address] [place] [address], [place] [address] Apr, [facility] [address] [id number] [address] [place] [address], [place] [address] Apr, [facility] [address] [id number] [address] [place] [address], [place] [address] Apr, [facility] [address] [id number] [address] [place] [address], [place] [address] Apr, [facility] [address] [id number] [address] [place] [address], [place] [address] Apr, [facility] [address] [id number] [address] [place] [address], [place] [address] Mar, [facility] [address] [id number] [address] [place] [address], [place] [address] Mar, [facility] [address] [id number] [address] [place] [address], [place] [address] Mar, [facility] [address] [id number] [address] [place] [address], [place] [id number] 31 Mar, 2013 [facility] [address] [id number] [address] [place] [address], [place] [id number] 30 Mar, 2013 [facility] [address] [id number] [address] [place] [address], [place] [id number] 30 Mar, 2014 [facility] [address] [id number] [address] [place] [address], [place] [id number] Mar, 2013 [facility] [address] [id number] [address] [place] [address], [place] [id number] 17 Mar, 2013 [facility] [address] [id number] [address] [place] [address], [place] [id number] 15 Mar, 2014 [facility] [address] [id number] [address] [place] [id number] 15 Mar, 2014 [facility] [address] [id number] [address] [place] [address], [place] [address] 15 Mar, 2014 [facility] [address] [id number] [address] [place] [id number] Mar, [facility] [address] [id number] [address] [place] [address], [place] [id number] Mar, [facility] [address] [id number] [address] [place] [id number] Mar, [facility] [address] [id number] [address] [place] [id number] Mar, [facility] [address] [id number] [address] [place] [id number] Mar, 2013 [facility] [address] [id number] [address] [place] [address], [place] [id number] Mar, [facility] [address] [id number] [address] [place] [id number] Mar, [facility] [address] [id number] [address] [place] [id number] Mar, 2013 [facility] [address] [id number] [address] [place] [address], [place] [id number] 02 Mar, 2013 [facility] [address] [id number] [address] [place] [address], [place] [id number] 05 Sep, 2013 [facility] [address] [id number] [address] [place] [address], [place] [id number] 05 Sep, 2013 [facility] [address] [id number] [address] [place] [address], [place] [id number] 04 Sep, 2013 [facility] [address] [id number] [address] [place] [address], [place] [id number] 04 Sep, 2013 [facility] [address] [id number] [address] [place] [address], [place] [id number] 03 Feb, 2013 [facility] [address] [id number] [address] [place] [address], [place] [id number] Feb, 2013 [facility] [address] [id number] [address] [place] [address], [place] [id number] Feb, 2013 [facility] [address] [id number] [address] [place] [address], [place] [id number] Feb, 2013 [facility] [address] [id number] [address] [place] [address], [place] [id number] Feb, 2013 [facility] [address] [id number] [address] [place] [address], [place] [id number] Feb, 2013 [facility] [address] [id number] [address] [place] [address], [place] [id number] Jan, [facility] [address] [id number] [address] [place] [address], [place] [id number] Jan, [facility] [address] [id number] [address] [place] [address], [place] [id number] Jan, [facility] [address] [id number] [address] [place] [address], [place] [id number] Jan, [facility] [address] [id number] [address] [place] [address], [place] [address] Jan, [facility] [address] [id number] [address] [place] [address], [place] [address] Jan, [facility] [address] [id number] [address] [place] [address], [place] [id number] Jan, [facility] [address] [id number] [address] [place] [address], [place] [address] Jan, [facility] [address] [id number] [address] [place] [address], [place] [address] Jan, [facility] [address] [id number] [address] [place] [address], [place] [address] Jan, [facility] [address] [id number] [address] [place] [address], [place] [address] Jan, [facility] [address] [id number] [address] [place] [address], [place] [address] Jan, [facility] [address] [id number] [address] [place] [address], [place] [address] Dec, [facility] [address] [id number] [address] [place] [address], [place] [address] Dec, [facility] [address] [id number] [address] [place] [address], [place] [address] Dec, [facility] [address] [id number] [address] [place] [address], [place] [address] Dec, [facility] [address] [id number] [address] [place] [address], [place] [address] Dec, [facility] [address] [id number] [address] [place] [address], [place] [address] Dec, [facility] [address] [id number] [address] [place] [address], [place] [address] Dec, [facility] [address] [id number] [address] [place] [address], [place] [address] Dec, [facility] [address] [id number] [address] [place] [address], [place] [address] Dec, [facility] [address] [id number] [address] [place] [address], [place] [address] Dec, [facility] [address] [id number] [address] [place] [address], [place] [address] Dec, [facility] [address] [id number] [address] [place] [address], [place] [address] Dec, [facility] [address] [id number] [address] [place] [address], [place] [address] Nov, [facility] [address] [id number] [address] [place] [address], [place] [address] Nov, [facility] [address] [id number] [address] [place] [address], [place] [address] Nov, [facility] [address] [id number] [address] [place] [address], [place] [address] Nov, [facility] [address] [id number] [address] [place] [address], [place] [address] Nov, [facility] [address] [id number] [address] [place] [address], [place] [address] Nov, [facility] [address] [id number] [address] [place] [address], [place] [address] Nov, [facility] [address] [id number] [address] [place] [address], [place] [address] Nov, [facility] [address] [id number] [address] [place] [id number] Nov, [facility] [address] [id number] [address] [place] [address], [place] [address] Nov, [facility] [address] [id number] [address] [place] [address], [place] [address] Nov, [facility] [address] [id number] [address] [place] [address], [place] [address] Nov, [facility] [address] [id number] [address] [place] [address], [place] [address] Nov, [facility] [address] [id number] [address] [place] [address], [place] [address] Nov, [facility] [address] [id number] [address] [place] [address], [place] [address] October, [facility] [address] [id number] [address] [place] [address], [place] [address] October, [facility] [address] [id number] [address] [place] [address], [place] [address] October, [facility] [address] [id number] [address] [place] [address], [place] [address] October, [facility] [address] [id number] [address] [place] [address], [place] [address] October, [facility] [address] [id number] [address] [place] [address], [place] [address] October, [facility] [address] [id number] [address] [place] [address], [place] [address] October, [facility] [address] [id number] [address] [place] [address], [place] [address] October, [facility] [address] [id number] [address] [place] [address], [place] [address] October, [facility] [address] [id number] [address] [place] [address], [place] [address] October, [facility] [address] [id number] [address] [place] [address], [place] [address] October, [facility] [address] [id number] [address] [place] [address], [place] [address] October, [facility] [address] [id number] [address] [place] [address], [place] [address] Sep, [facility] [address] [id number] [address] [place] [address], [place] [address] Sep, [facility] [address] [id number] [facility] [place] [address] Sep, [facility] [address] [id number] [address] [place] [address], [place] [address] Sep, [facility] [address] [id number] [address] [place] [address], [place] [address] Sep, [facility] [address] [id number] [address] [place] [address], [place] [address] Sep, [facility] [address] [id number] [address] [place] [address], [place] [address] Aug, [facility] [address] [id number] [address] [place] [address], [place] [address] Aug, [facility] [address] [id number] [address] [place] [address], [place] [address] Aug, [facility] [address] [id number] [address] [place] [address], [place] [address] Aug, [facility] [address] [id number] [address] [place] [address], [place] [address] Aug, [facility] [address] [id number] [address] [place] [address], [place] [address] Aug, [facility] [address] [id number] [address] [place] [address], [place] [address] Jul, [facility] [address] [id number] [address] [place] [address], [place] [address] Jul, [facility] [address] [id number] [address] [place] [address], [place] [address] Jul, [facility] [address] [id number] [address] [place] [address], [place] [address] Jul, [facility] [address] [id number] [address] [place] [address], [place] [address] Jul, [facility] [address] [id number] [address] [place] [address], [place] [address] 13 Jul, 2013 [facility] [address] [id number] [address] [place] [address], [place] [address] Jul, [facility] [address] [id number] [address] [place] [address], [place] [address] Jul, [facility] [address] [id number] [address] [place] [address], [place] [address] Jul, [facility] [address] [id number] [address] [place] [address], [place] [address] Jul, [facility] [address] [id number] [address] [place] [address], [place] [address] Jun, [facility] [address] [id number] [address] [place] [address], [place] [address] Jun, [facility] [address] [id number] [address] [place] [address], [place] [address] Jun, [facility] [address] [id number] [address] [place] [address], [place] [address] Jun, [facility] [address] [id number] [address] [place] [address], [place] [address] Jun, [facility] [address] [id number] [address] [place] [address], [place] [address] Jun, [facility] [address] [id number] [address] [place] [address], [place] [address] Jun, [facility] [address] [id number] [address] [place] [address], [place] [address] Jun, [facility] [address] [id number] [address] [place] [address], [place] [address] May, [facility] [address] [id number] [address] [place] [address], [place] [address] May, [facility] [address] [id number] [address] [place] [address] [address] May, [facility] [address] [id number] [address] [place] [address], [place] [address] May, [facility] [address] [id number] [address] [place] [address], [place] [address] May, [facility] [address] [id number] [address] [place] [address], [place] [address] May, [facility] [address] [id number] [address] [place] [address], [place] [address] May, [facility] [address] [id number] [address] [place] [address], [place] [address] May, [facility] [address] [id number] [address] [place] [address], [place] [address] Apr, [facility] [address] [id number] [address] [place] [address], [place] [address] Apr, [facility] [address] [id number] [address] [place] [id number] Apr, [facility] [address] [id number] [address] [place] [id number] Apr, [facility] [address] [id number] [address] [place] [id number] Apr, [facility] [address] [id number] [address] [place] [id number] Apr, [facility] [address] [id number] [address] [place] [id number] Mar, [facility] [address] [id number] [address] [place] [id number] Mar, [facility] [address] [id number] [address] [place] [id number] Mar, [facility] [address] [id number] [address] [place] [id number] Mar, [facility] [address] [id number] [address] [place] [address], [place] [address] Mar, [facility] [address] [id number] [address] [place] [address], [place] [address] Mar, [facility] [address] [id number] [address] [place] [address], [place] [address] Mar, [facility] [address] [id number] [address] [place] [address], [place] [address] 30 Feb, 2013 [facility] [address] [id number] [address] [place] [address], [place] [address] 30 Feb, 2013 [facility] [address] [id number] [address] [place] [address], [place] [address] 27 Feb, 2013 [facility] [address] [id number] [address] [place] [address], [place] [address] Feb, [facility] [address] [id number] [address] [place] [address], [place] [address] Feb, [facility] [address] [id number] [address] [place] [address], [place] [address] Feb, [facility] [address] [id number] [address] [place] [address], [place] [address] Jan, [facility] [address] [id number] [address] [place] [address], [place] [address] Jan, [facility] [address] [id number] [address] [place] [address], [place] [address] Jan, [facility] [address] [id number] [address] [place] [address], [place] [address] Jan, [facility] [address] [id number] [address] [place] [address], [place] [address] Jan, [facility] [address] [id number] [address] [place] [address], [place] [address] Jan, [facility] [address] [id number] [address] [place] [address], [place] [address] Jan, [facility] [address] [id number] [address] [place] [address], [place] [address] Jan, [facility] [address] [id number] [address] [place] [address], [place] [address] Jan, [facility] [address] [id number] [address] [place] [address], [place] [address] Dec, [facility] [address] [id number] [address] [place] [address], [place] [address] Dec, [facility] [address] [id number] [address] [place] [address], [place] [address] Dec, [facility] [address] [id number] [address] [place] [address], [place] [address] Dec, [facility] [address] [id number] [address] [place] [address], [place] [address] Dec, [facility] [address] [id number] [address] [place] [address], [place] [address] Dec, [facility] [address] [id number] [address] [place] [address], [place] [address] Dec, [facility] [address] [id number] [address] [place] [address], [place] [address] Dec, [facility] [address] [id number] [address] [place] [address], [place] [address] Dec, [facility] [address] [id number] [address] [place] [address], [place] [address] Dec, [facility] [address] [id number] [address] [place] [address], [place] [address] Dec, [facility] [address] [id number] [address] [place] [address], [place] [address] Dec, [facility] [address] [id number] [address] [place] [address], [place] [address] Dec, [facility] [address] [id number] [address] [place] [address], [place] [address] Nov, [facility] [address] [id number] [address] [place] [address], [place] [address] Nov, [facility] [address] [id number] [address] [place] [address], [place] [address] Nov, [facility] [address] [id number] [address] [place] [address], [place] [address] Nov, [facility] [address] [id number] [address] [place] [address], [place] [address] October, [facility] [address] [id number] [address] [place] [address], [place] [address] October, [facility] [address] [id number] [address] [place] [address], [place] [address] October, [facility] [address] [id number] [address] [place] [address], [place] [address] October, [facility] [address] [id number] [address] [place] [address], [place] [address] October, [facility] [address] [id number] [address] [place] [address], [place] [address] October, [facility] [address] [id number] [address] [place] [address], [place] [address] 30 Sep, 2012 [facility] [address] [id number] [address] [place] [address], [place] [address] 29 Sep, 2012 [facility] [address] [id number] [address] [place] [address], [place] [address] 27 Sep, 2012 [facility] [address] [id number] [address] [place] [address], [place] [address] 23 Sep, 2012 [facility] [address] [id number] [address] [place] [address], [place] [address] Sep, [facility] [address] [id number] [address] [place] [address], [place] [address] 16 Sep, 2012 [facility] [address] [id number] [facility] [place] [address] 12 Sep, 2012 [facility] [address] [id number] [address] [place] [address], [place] [address] Sep, [facility] [address] [id number] [address] [place] [address], [place] [address] Sep, [facility] [address] [id number] [address] [place] [address], [place] [address] Sep, [facility] [address] [id number] [address] [place] [address], [place] [address] Sep, [facility] [address] [id number] [address] [place] [address], [place] [address] Aug, [facility] [address] [id number] [address] [place] [address], [place] [address] Aug, [facility] [address] [id number] [address] [place] [address], [place] [address] 25 Aug, 2012 [facility] [address] [id number] [address] [place] [address], [place] [address] 21 Aug, 2012 [facility] [address] [id number] [address] [place] [address], [place] [address] 19 Aug, 2012 [facility] [address] [id number] [address] [place] [address], [place] [address] 18 Aug, 2012 [facility] [address] [id number] [address] [place] [address], [place] [address] 17 Aug, 2012 [facility] [address] [id number] [address] [place] [address], [place] [address] 15 Aug, 2012 [facility] [address] [id number] [address] [place] [address], [place] [address] 15 Aug, 2012 [facility] [address] [id number] [address] [place] [address], [place] [address] 11 Aug, 2012 [facility] [address] [id number] [address] [place] [address], [place] [address] Aug, [facility] [address] [id number] [address] [place] [address], [place] [address] Aug, [facility] [address] [id number] [address] [place] [address], [place] [address] Jul, [facility] [address] [id number] [address] [place] [address], [place] [id number] Jul, [facility] [address] [id number] [address] [place] [address], [place] [address] Jul, [facility] [address] [id number] [address] [place] [address], [place] [address] Jul, [facility] [address] [id number] [address] [place] [address], [place] [address] Jul, [facility] [address] [id number] [address] [place] [address], [place] [id number] Jul, [facility] [address] [id number] [address] [place] [address], [place] [id number] Jul, [facility] [address] [id number] [address] [place] [address], [place] [address] Jul, [facility] [address] [id number] [address] [place] [address], [place] [id number] Jul, [facility] [address] [id number] [address] [place] [id number] Jul, [facility] [address] [id number] [address] [place] [id number] May, [facility] [address] [id number] [place] [id number] May, [facility] [address] [id number] [address] [place] [id number] May, [facility] [address] [id number] [address] [place] [address], [place] [id number] 14 May, 2012 [facility] [address] [id number] [address] [place] [address], [place] [address] May, [facility] [address] [id number] [address] [place] [address], [place] [address] Apr, [facility] [address] [id number] [place] [id number] Apr, [facility] [address] [facility] [id number] [address] [place] [address], [place] [id number] Apr, [facility] [address] [facility] [id number] [address] [place] [address], [place] [address] Mar, [facility] [address] [id number] [place] [id number] Mar, [facility] [address] [facility] [id number] [address] [place] [address], [place] [address] Mar, [facility] [address] [id number] [place] [id number] Feb, [facility] [address] [facility] [id number] [address] [place] [address], [place] [address] Feb, [facility] [address] [facility] [id number] [address] [place] [address], [place] [address] Feb, [facility] [address] [id number] [place] [id number] Feb, [facility] [address] [id number] [place] [id number] Feb, [facility] [address] [id number] [place] [id number] Jan, [facility] [address] [id number] [address] [place] [address], [place] [id number] Jan, [facility] [address] [id number] [place] [id number] Jan, [facility] [address] [id number] [place] [id number] Jan, [facility] [address] [id number] [place] [id number] Jan, [facility] [address] [id number] [address] [place] [address], [place] [address] Jan, [facility] [address] [facility] [id number] [address] [place] [address], [place] [id number] Jan, [facility] [address] [facility] [id number] [address] [place] [address], [place] [address] Aug, [facility] [address] [facility] [id number] [place] [id number] Aug, [facility] [address] [facility] [id number] [address] [place] [address], [place] [id number] Jul, [facility] [address] [facility] [id number] [address] [place] [address], [place] [address] Jul, [facility] [address] [facility] [id number] [address] [place] [address], [place] [address] Jul, [facility] [address] [facility] [id number] [place] [id number] Jul, [facility] [address] [facility] [id number] [address] [place] [address], [place] [id number] Jul, [facility] [address] [facility] [id number] [place] [id number] Jul, [facility] [address] [facility] [id number] [address] [place] [address], [place] [address] Jul, [facility] [address] [id number] [place] [id number] Jul, [facility] [address] [id number] [place] [id number] Jul, [facility] [address] [id number] [place] [id number] Jul, [facility] [address] [facility] [id number] [address] [place] [address], [place] [address] May, [facility] [address] [facility] [id number] [address] [place] [address], [place] [address] May, [facility] [address] [id number] [address] [place] [id number] May, [facility] [address] [id number] [address] [place] [phone] Apr, [facility] [address] [id number] [address] [place] [phone] Jan, [facility] [address] [id number] [address] [place] [phone] Jan, [facility] [address] [id number] [address] [place] [phone] Dec, [facility] [address] [id number] [address] [place] [phone] Dec, [facility] [address] [id number] [address] [place] [phone] 16 May, 2009 [facility] [address] [id number] [address] [place] [id number] Mar, [facility] [address] [id number] [address] [place] [phone] Mar, [facility] [address] [id number] [address] [place] [phone] Jan, IMMUNIZATIONS No Known Immunizations SOCIAL HISTORY Never Assessed REASON FOR VISIT [facility] VITAL SIGNS MEDICATIONS Unknown [...]
--- OUTSIDE RECORDS SUMMARY | 2020-01-28 13:04 | XMS REPORT ---
Author Author Heydi Candelario Doctor Organization [facility] Address Unknown Phone Unavailable Care Team Providers Care Pay Station Collector Name Role Phone Migration, Doctor Unavailable Unavailable PROBLEMS Type Condition ICD9-CM Code GOU83-XC Code Onset Dates Condition S tatus SNOMED Code Problem Chronic pain syndrome G89.4 Active 088544445 Problem Sore throat J02.9 Active 03038068 3 Problem Choriocarcinoma C58 Active 1881 33015 Problem skilled nursing current use of anticoagulant Z79.01 Active 391227826 Problem History of venous thromboembolism V12.51 Active 160017794 Problem Cellulitis of unspecified part of limb L03.119 Active 717374954 Problem Gastroesophageal reflux disease without esophagitis K21.9 Active 988141985 Problem History of pulmonary embolism Z86.711 Active 679472464 Problem Pseudotumor cerebri G93.2 Active 74723191 Problem History of DVT (deep vein thrombosis) Z86.718 Active 015845979 ALLERGIES No Information ENCOUNTERS Encounter Location Date Diagnosis [place] [address] [facility] [id number] [address] [place] [id number] Apr, 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 [place] [address] [facility] [id number] [address] [place] [address] Apr, 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 of 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 Z79.01 [place] [facility] [id number] [address] [place] [address] Apr, Cellulitis of unspecified pa rt of limb L03.119 ; Allergic contact dermatitis due to adhesives L23.1 and Chronic pain syndrome G89.4 [facility] [place] [address] [facility] [id number] [address] [place] [address] Apr, [place] [address] [facility] [id number] [address] [place] [address] Apr, skilled nursing current use of ant icoagulant Z79.01 ; Cellulitis of unspecified part of limb L03.119 ; Chronic pain syndrome G89.4 and Anxiety F41.9 [place] [address] [address] [place] [id number] [address] [place] [address] 16 Apr, 2015 [place] [address] [place] [id number] [place] [address] Apr, [place] [address] [address] Mar, [place] [address] [place] [id number] [place] [address] Mar, [place] [address] [address] Mar, Sore throat J02.9 ; Gastroes ophageal reflux disease without esophagitis K21.9 ; Pseudotumor cerebri G93.2 ; Chronic pain syndrome G89.4 ; Choriocarcinoma C58 ; History of pulmonary embolism Z86.711 ; History of DVT (deep vein thrombosis) Z86.718 ; Anxiety F41.9 and Tachycardia R00.0 [place] [address] [address] Feb, Anxiety 300.00 and Chronic p ain 338.29 [place] [address] [place] [id number] [address] [place] [address] Feb, [place] [id number] [place] [address] Feb, [place] [address] [place] [id number] [place] [address] Jan, skilled nursing current use of ant icoagulant therapy V58.61 and Dysuria 788.1 [place] [address] [address] [place] [id number] [address] [place] [address] Jan, Dysuria 788.1 [place] [address] [place] [id number] [place] [address] Jan, Anxiety 300.00 and Chronic p ain 338.29 [place] [address] [address] Jan, [facility] [place] [address] [address] Jan, [place] [address] [address] Jan, [place] [address] [address] Dec, Weakness 780.79 [place] [address] [address] Dec, 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 V58.61 [place] [address] [address] Dec, Palpitations 785.1 ; Tremor 781.0 ; Weakness 780.79 ; skilled nursing current use of anticoagulant therapy V58.61 and Yeast vaginitis 112.1 [place] [address] [address] Dec, [place] [address] [address] Dec, Cervicalgia 723.1 ; Tachycar yoseph 785.0 ; Pseudotumor cerebri 348.2 and History of venous thromboembolism V12.51 [place] [address] [address] [place] [id number] [address] [place] [address] Nov, [place] [address] [address] Nov, [place] [address] [address] Nov, Tachycardia 785.0 ; Pseudotu mor cerebri 348.2 ; Anxiety 300.00 and History of venous thromboembolism V12.51 [facility] [address] [id number] [address] [place] [address], [place] [address] Nov, [facility] [address] [id number] [address] [place] [address], [place] [address] 18 Nov, 2014 [facility] [address] [id number] [address] [place] [address], [place] [address] 16 Nov, 2014 [facility] [address] [id number] [address] [place] [address], [place] [address] Nov, [facility] [address] [id number] [address] [place] [address], [place] [address] Nov, [facility] [address] [id number] [address] [place] [address], [place] [address] Nov, [facility] [address] [id number] [address] [place] [address], [place] [address] Nov, [facility] [address] [id number] [address] [place] [address] October, [facility] [address] [id number] [address] [place] [address] October, [facility] [address] [id number] [address] [place] [address] October, Pain in thoracic spine 724.1 and Tachycardia 785.0 [facility] [address] [id number] [address] [place] [address] October, [facility] [address] [id number] [address] [place] [address] October, [facility] [address] [id number] [address] [place] [address] Sep, [facility] [address] [id number] [address] [place] [id number] Sep, [facility] [address] [id number] [address] [place] [address] Aug, [facility] [address] [id number] [address] [place] [address], [place] [address] Aug, [facility] [address] [id number] [address] [place] [address], [place] [address] Aug, [facility] [address] [id number] [address] [place] [address], [place] [address] 17 Aug, 2014 [facility] [address] [id number] [address] [place] [address], [place] [address] Aug, [facility] [address] [id number] [address] [place] [address], [place] [address] 16 Aug, 2014 [facility] [address] [id number] [address] [place] [address], [place] [address] Aug, [facility] [address] [id number] [address] [place] [address], [place] [address] Aug, [facility] [address] [id number] [address] [place] [address], [place] [address] Aug, 2014 [facility] [address] [id number] [address] [place] [address], [place] [address] Aug, [facility] [address] [id number] [address] [place] [address], [place] [address] Aug, [facility] [address] [id number] [address] [place] [address], [place] [address] Aug, [facility] [address] [id number] [address] [place] [address], [place] [address] Jul, 2014 [facility] [address] [id number] [address] [place] [address], [place] [address] Jul, 2014 [facility] [address] [id number] [address] [place] [address], [place] [address] Jul, 2014 [facility] [address] [id number] [address] [place] [address], [place] [address] Jul, 2014 [facility] [address] [id number] [address] [place] [address], [place] [address] b, 2014 [facility] [address] [id number] [address] [place] [address], [place] [address] 23 Jul, 2014 [facility] [address] [id number] [address] [place] [address], [place] [address] 23 Jul, 2014 [facility] [address] [id number] [address] [place] [address], [place] [address] 23 Jul, 2014 [facility] [address] [id number] [address] [place] [address], [place] [address] 20 Jul, 2014 [facility] [address] [id number] [address] [place] [address], [place] [address] 20 Jul, 2014 [facility] [address] [id number] [address] [place] [address], [place] [address] 19 Jul, 2014 [facility] [address] [id number] [address] [place] [address], [place] [address] 19 Jul, 2014 [facility] [address] [id number] [address] [place] [address], [place] [address] 17 Jul, 2014 [facility] [address] [id number] [address] [place] [address], [place] [address] 17 Jul, 2014 [facility] [address] [id number] [address] [place] [address], [place] [address] 16 Jul, 2014 [facility] [address] [id number] [address] [place] [address], [place] [address] 16 Jul, 2014 [facility] [address] [id number] [address] [place] [address], [place] [address] 16 Jul, 2014 [facility] [address] [id number] [address] [place] [address], [place] [address] 16 Jul, 2014 [facility] [address] [id number] [address] [place] [address], [place] [address] 13 Jul, 2014 [facility] [address] [id number] [address] [place] [address], [place] [address] Jul, 2014 [facility] [address] [id number] [address] [place] [address], [place] [address] Jul, 2014 [facility] [address] [id number] [address] [place] [address], [place] [address] Jul, 2014 [facility] [address] [id number] [address] [place] [address], [place] [address] Jul, 2014 [facility] [address] [id number] [address] [place] [address], [place] [address] Jul, 2014 [facility] [address] [id number] [address] [place] [address], [place] [address] Jul, [facility] [address] [id number] [address] [place] [address], [place] [address] Jul, [facility] [address] [id number] [address] [place] [address], [place] [address] Jul, [facility] [address] [id number] [address] [place] [address], [place] [address] Jul, [facility] [address] [id number] [address] [place] [address], [place] [address] Jul, [facility] [address] [id number] [address] [place] [address], [place] [address] Jul, [facility] [address] [id number] [address] [place] [address], [place] [address] Jun, [facility] [address] [id number] [address] [place] [address], [place] [address] Jun, [facility] [address] [id number] [address] [place] [address], [place] [address] Jun, [facility] [address] [id number] [address] [place] [address], [place] [address] Jun, [facility] [address] [id number] [address] [place] [address], [place] [address] Jun, [facility] [address] [id number] [address] [place] [address], [place] [address] Jun, [facility] [address] [id number] [address] [place] [address], [place] [address] Jun, [facility] [address] [id number] [address] [place] [address], [place] [address] Jun, [facility] [address] [id number] [address] [place] [address], [place] [address] Jun, [facility] [address] [id number] [address] [place] [address], [place] [address] Jun, [facility] [address] [id number] [address] [place] [address], [place] [address] Jun, [facility] [address] [id number] [address] [place] [address], [place] [address] Jun, [facility] [address] [id number] [address] [place] [address], [place] [address] Jun, [facility] [address] [id number] [address] [place] [address], [place] [address] Jun, [facility] [address] [id number] [address] [place] [address], [place] [address] Jun, [facility] [address] [id number] [address] [place] [address], [place] [address] Jun, [facility] [address] [id number] [address] [place] [address], [place] [address] Jun, [facility] [address] [id number] [address] [place] [address], [place] [address] Jun, [facility] [address] [id number] [address] [place] [address], [place] [address] Jun, [facility] [address] [id number] [address] [place] [address], [place] [address] Jun, [facility] [address] [id number] [address] [place] [address], [place] [address] May, [facility] [address] [id number] [address] [place] [address], [place] [address] May, [facility] [address] [id number] [address] [place] [address], [place] [address] May, [facility] [address] [id number] [address] [place] [address], [place] [address] May, [facility] [address] [id number] [address] [place] [address], [place] [address] May, [facility] [address] [id number] [address] [place] [address], [place] [address] May, [facility] [address] [id number] [address] [place] [address], [place] [address] May, [facility] [address] [id number] [address] [place] [address], [place] [address] May, [facility] [address] [id number] [address] [place] [address], [place] [address] May, [facility] [address] [id number] [address] [place] [address], [place] [address] May, [facility] [address] [id number] [address] [place] [address], [place] [address] May, [facility] [address] [id number] [address] [place] [address], [place] [address] 18 May, 2014 [facility] [address] [id number] [address] [place] [address], [place] [address] 18 May, 2014 [facility] [address] [id number] [address] [place] [address], [place] [address] 17 May, 2014 [facility] [address] [id number] [address] [place] [address], [place] [address] 16 May, 2014 [facility] [address] [id number] [address] [place] [address], [place] [address] 16 May, 2014 [facility] [address] [id number] [address] [place] [address], [place] [address] 15 May, 2014 [facility] [address] [id number] [address] [place] [address], [place] [address] 15 May, 2014 [facility] [address] [id number] [address] [place] [address], [place] [address] May, [facility] [address] [id number] [address] [place] [address], [place] [address] May, [facility] [address] [id number] [address] [place] [address], [place] [address] May, [facility] [address] [id number] [address] [place] [address], [place] [address] May, [facility] [address] [id number] [address] [place] [address], [place] [address] May, [facility] [address] [id number] [address] [place] [address], [place] [address] May, [facility] [address] [id number] [address] [place] [address], [place] [address] May, [facility] [address] [id number] [address] [place] [address], [place] [address] May, [facility] [address] [id number] [address] [place] [address], [place] [address] May, [facility] [address] [id number] [address] [place] [address], [place] [address] May, [facility] [address] [id number] [address] [place] [address], [place] [address] May, [facility] [address] [id number] [address] [place] [address], [place] [address] May, [facility] [address] [id number] [address] [place] [address], [place] [address] May, [facility] [address] [id number] [address] [place] [address], [place] [address] May, [facility] [address] [id number] [address] [place] [address], [place] [address] May, [facility] [address] [id number] [address] [place] [address], [place] [address] May, [facility] [address] [id number] [address] [place] [address], [place] [address] Apr, [facility] [address] [id number] [address] [place] [address], [place] [address] Apr, [facility] [address] [id number] [address] [place] [address], [place] [address] Apr, [facility] [address] [id number] [address] [place] [address], [place] [address] Apr, [facility] [address] [id number] [address] [place] [address], [place] [address] Apr, [facility] [address] [id number] [address] [place] [address], [place] [address] Apr, [facility] [address] [id number] [address] [place] [address], [place] [address] Apr, [facility] [address] [id number] [address] [place] [address], [place] [address] Apr, [facility] [address] [id number] [address] [place] [address], [place] [address] Apr, [facility] [address] [id number] [address] [place] [address], [place] [address] Apr, [facility] [address] [id number] [address] [place] [address], [place] [address] Mar, [facility] [address] [id number] [address] [place] [address], [place] [address] Mar, [facility] [address] [id number] [address] [place] [address], [place] [address] Mar, [facility] [address] [id number] [address] [place] [address], [place] [address] 31 Mar, 2013 [facility] [address] [id number] [address] [place] [address], [place] [address] 30 Mar, 2013 [facility] [address] [id number] [address] [place] [address], [place] [address] 30 Mar, 2014 [facility] [address] [id number] [address] [place] [address], [place] [address] Mar, 2013 [facility] [address] [id number] [address] [place] [address], [place] [address] 17 Mar, 2013 [facility] [address] [id number] [address] [place] [address], [place] [address] 15 Mar, 2014 [facility] [address] [id number] [address] [place] [id number] 15 Mar, 2014 [facility] [address] [id number] [address] [place] [address], [place] [address] 15 Mar, 2014 [facility] [address] [id number] [address] [place] [id number] Mar, [facility] [address] [id number] [address] [place] [address], [place] [address] Mar, [facility] [address] [id number] [address] [place] [id number] Mar, [facility] [address] [id number] [address] [place] [id number] Mar, [facility] [address] [id number] [address] [place] [id number] Mar, 2013 [facility] [address] [id number] [address] [place] [address], [place] [address] Mar, [facility] [address] [id number] [address] [place] [id number] Mar, [facility] [address] [id number] [address] [place] [id number] Mar, 2013 [facility] [address] [id number] [address] [place] [address], [place] [address] 02 Mar, 2013 [facility] [address] [id number] [address] [place] [address], [place] [address] 05 Sep, 2013 [facility] [address] [id number] [address] [place] [address], [place] [address] 05 Sep, 2013 [facility] [address] [id number] [address] [place] [address], [place] [address] 04 Sep, 2013 [facility] [address] [id number] [address] [place] [address], [place] [id number] 04 Sep, 2013 [facility] [address] [id number] [address] [place] [address], [place] [address] 03 Feb, 2013 [facility] [address] [id number] [address] [place] [address], [place] [address] Feb, 2013 [facility] [address] [id number] [address] [place] [address], [place] [address] Feb, 2013 [facility] [address] [id number] [address] [place] [address], [place] [address] Feb, 2013 [facility] [address] [id number] [address] [place] [address], [place] [address] Feb, 2013 [facility] [address] [id number] [address] [place] [address], [place] [address] Feb, 2013 [facility] [address] [id number] [address] [place] [address], [place] [address] Jan, [facility] [address] [id number] [address] [place] [address], [place] [address] Jan, [facility] [address] [id number] [address] [place] [address], [place] [address] Jan, [facility] [address] [id number] [address] [place] [address], [place] [address] Jan, [facility] [address] [id number] [address] [place] [address], [place] [address] Jan, [facility] [address] [id number] [address] [place] [address], [place] [address] Jan, [facility] [address] [id number] [address] [place] [address], [place] [address] Jan, [facility] [address] [id number] [address] [place] [address], [place] [address] Jan, [facility] [address] [id number] [address] [place] [address], [place] [address] Jan, [facility] [address] [id number] [address] [place] [address], [place] [address] Jan, [facility] [address] [id number] [address] [place] [address], [place] [address] Jan, [facility] [address] [id number] [address] [place] [address], [place] [address] Jan, [facility] [address] [id number] [address] [place] [address], [place] [address] Dec, [facility] [address] [id number] 20 [place] [address], [place] [address] Dec, [facility] [address] [id number] [address] [place] [address], [place] [address] Dec, [facility] [address] [id number] [address] [place] [address], [place] [address] Dec, [facility] [address] [id number] [address] [place] [address], [place] [address] Dec, [facility] [address] [id number] [address] [place] [address], [place] [address] Dec, [facility] [address] [id number] [address] [place] [address], [place] [address] Dec, [facility] [address] [id number] [address] [place] [address], [place] [address] Dec, [facility] [address] [id number] [address] [place] [address], [place] [address] Dec, [facility] [address] [id number] [address] [place] [address], [place] [address] Dec, [facility] [address] [id number] [address] [place] [address], [place] [address] Dec, [facility] [address] [id number] [address] [place] [address], [place] [address] Dec, [facility] [address] [id number] [address] [place] [address], [place] [address] Nov, [facility] [address] [id number] [address] [place] [address], [place] [address] Nov, [facility] [address] [id number] [address] [place] [address], [place] [address] Nov, [facility] [address] [id number] [address] [place] [address], [place] [address] Nov, [facility] [address] [id number] [address] [place] [address], [place] [address] Nov, [facility] [address] [id number] [address] [place] [address], [place] [address] Nov, [facility] [address] [id number] [address] [place] [address], [place] [address] Nov, [facility] [address] [id number] [address] [place] [address], [place] [address] Nov, [facility] [address] [id number] [address] [place] [address] Nov, [facility] [address] [id number] [address] [place] [address], [place] [address] Nov, [facility] [address] [id number] [address] [place] [address], [place] [address] Nov, [facility] [address] [id number] [address] [place] [address], [place] [address] Nov, [facility] [address] [id number] [address] [place] [address], [place] [address] Nov, [facility] [address] [id number] [address] [place] [address], [place] [address] Nov, [facility] [address] [id number] [address] [place] [address], [place] [address] October, [facility] [address] [id number] [address] [place] [address], [place] [address] October, [facility] [address] [id number] [address] [place] [address], [place] [address] October, [facility] [address] [id number] [address] [place] [address], [place] [address] October, [facility] [address] [id number] [address] [place] [address], [place] [address] October, [facility] [address] [id number] [address] [place] [address], [place] [address] October, [facility] [address] [id number] [address] [place] [address], [place] [address] October, [facility] [address] [id number] [address] [place] [address], [place] [address] October, [facility] [address] [id number] [address] [place] [address], [place] [address] October, [facility] [address] [id number] [address] [place] [address], [place] [address] October, [facility] [address] [id number] [address] [place] [address], [place] [address] October, [facility] [address] [id number] [address] [place] [address], [place] [address] October, [facility] [address] [id number] [address] [place] [address], [place] [address] Sep, [facility] [address] [id number] [address] [place] [address], [place] [address] Sep, [facility] [address] [id number] [facility] [place] [address] Sep, [facility] [address] [id number] [address] [place] [address], [place] [address] Sep, [facility] [address] [id number] [address] [place] [address], [place] [address] Sep, [facility] [address] [id number] [address] [place] [address], [place] [address] Sep, [facility] [address] [id number] [address] [place] [address], [place] [address] Aug, [facility] [address] [id number] [address] [place] [address], [place] [address] Aug, [facility] [address] [id number] [address] [place] [address], [place] [address] Aug, [facility] [address] [id number] [address] [place] [address], [place] [address] Aug, [facility] [address] [id number] [address] [place] [address], [place] [address] Aug, [facility] [address] [id number] [address] [place] [address], [place] [address] Aug, [facility] [address] [id number] [address] [place] [address], [place] [address] Jul, [facility] [address] [id number] [address] [place] [address], [place] [address] Jul, [facility] [address] [id number] [address] [place] [address], [place] [address] Jul, [facility] [address] [id number] [address] [place] [address], [place] [address] Jul, [facility] [address] [id number] [address] [place] [address], [place] [address] Jul, [facility] [address] [id number] [address] [place] [address], [place] [address] 13 Jul, 2013 [facility] [address] [id number] [address] [place] [address], [place] [address] Jul, [facility] [address] [id number] [address] [place] [address], [place] [address] Jul, [facility] [address] [id number] [address] [place] [address], [place] [address] Jul, [facility] [address] [id number] [address] [place] [address], [place] [address] Jul, [facility] [address] [id number] [address] [place] [address], [place] [address] Jun, [facility] [address] [id number] [address] [place] [address], [place] [address] Jun, [facility] [address] [id number] [address] [place] [address], [place] [address] Jun, [facility] [address] [id number] [address] [place] [address], [place] [address] Jun, [facility] [address] [id number] [address] [place] [address], [place] [address] Jun, [facility] [address] [id number] [address] [place] [address], [place] [address] Jun, [facility] [address] [id number] [address] [place] [address], [place] [address] Jun, [facility] [address] [id number] [address] [place] [address], [place] [address] Jun, [facility] [address] [id number] [address] [place] [address], [place] [address] May, [facility] [address] [id number] [address] [place] [address], [place] [address] May, [facility] [address] [id number] [address] [place] [address] [address] May, [facility] [address] [id number] [address] [place] [address], [place] [address] May, [facility] [address] [id number] [address] [place] [address], [place] [address] May, [facility] [address] [id number] [address] [place] [address], [place] [address] May, [facility] [address] [id number] [address] [place] [address], [place] [address] May, [facility] [address] [id number] [address] [place] [address], [place] [address] May, [facility] [address] [id number] [address] [place] [address], [place] [address] Apr, [facility] [address] [id number] [address] [place] [address], [place] [address] Apr, [facility] [address] [id number] [address] [place] [address] Apr, [facility] [address] [id number] [address] [place] [address] Apr, [facility] [address] [id number] [address] [place] [address] Apr, [facility] [address] [id number] [address] [place] [address] Apr, [facility] [address] [id number] [address] [place] [address] Mar, [facility] [address] [id number] [address] [place] [address] Mar, [facility] [address] [id number] [address] [place] [address] Mar, [facility] [address] [id number] [address] [place] [address] Mar, [facility] [address] [id number] [address] [place] [address], [place] [address] Mar, [facility] [address] [id number] [address] [place] [address], [place] [address] Mar, [facility] [address] [id number] [address] [place] [address], [place] [address] Mar, [facility] [address] [id number] [address] [place] [address], [place] [address] 30 Feb, 2013 [facility] [address] [id number] [address] [place] [address], [place] [address] 30 Feb, 2013 [facility] [address] [id number] [address] [place] [address], [place] [address] 27 Feb, 2013 [facility] [address] [id number] [address] [place] [address], [place] [address] Feb, [facility] [address] [id number] [address] [place] [address], [place] [address] Feb, [facility] [address] [id number] [address] [place] [address], [place] [address] Feb, [facility] [address] [id number] [address] [place] [address], [place] [address] Jan, [facility] [address] [id number] [address] [place] [address], [place] [address] Jan, [facility] [address] [id number] [address] [place] [address], [place] [address] Jan, [facility] [address] [id number] [address] [place] [address], [place] [address] Jan, [facility] [address] [id number] [address] [place] [address], [place] [address] Jan, [facility] [address] [id number] [address] [place] [address], [place] [address] Jan, [facility] [address] [id number] [address] [place] [address], [place] [address] Jan, [facility] [address] [id number] [address] [place] [address], [place] [address] Jan, [facility] [address] [id number] [address] [place] [address], [place] [address] Jan, [facility] [address] [id number] [address] [place] [address], [place] [address] Dec, [facility] [address] [id number] [address] [place] [address], [place] [address] Dec, [facility] [address] [id number] [address] [place] [address], [place] [address] Dec, [facility] [address] [id number] [address] [place] [address], [place] [address] Dec, [facility] [address] [id number] [address] [place] [address], [place] [address] Dec, [facility] [address] [id number] [address] [place] [address], [place] [address] Dec, [facility] [address] [id number] [address] [place] [address], [place] [address] Dec, [facility] [address] [id number] [address] [place] [address], [place] [address] Dec, [facility] [address] [id number] [address] [place] [address], [place] [address] Dec, [facility] [address] [id number] [address] [place] [address], [place] [address] Dec, [facility] [address] [id number] [address] [place] [address], [place] [address] Dec, [facility] [address] [id number] [address] [place] [address], [place] [address] Dec, [facility] [address] [id number] [address] [place] [address], [place] [address] Dec, [facility] [address] [id number] [address] [place] [address], [place] [address] Nov, [facility] [address] [id number] [address] [place] [address], [place] [address] Nov, [facility] [address] [id number] [address] [place] [address], [place] [address] Nov, [facility] [address] [id number] [address] [place] [address], [place] [address] Nov, [facility] [address] [id number] [address] [place] [address], [place] [address] October, [facility] [address] [id number] [address] [place] [address], [place] [address] October, [facility] [address] [id number] [address] [place] [address], [place] [address] October, [facility] [address] [id number] [address] [place] [address], [place] [address] October, [facility] [address] [id number] [address] [place] [address], [place] [address] October, [facility] [address] [id number] [address] [place] [address], [place] [address] October, [facility] [address] [id number] [address] [place] [address], [place] [address] 30 Sep, 2012 [facility] [address] [id number] [address] [place] [address], [place] [address] 29 Sep, 2012 [facility] [address] [id number] [address] [place] [address], [place] [address] 27 Sep, 2012 [facility] [address] [id number] [address] [place] [address], [place] [address] 23 Sep, 2012 [facility] [address] [id number] [address] [place] [address], [place] [address] Sep, [facility] [address] [id number] [address] [place] [address], [place] [address] 16 Sep, 2012 [facility] [address] [id number] [facility] [place] [address] 12 Sep, 2012 [facility] [address] [id number] [address] [place] [address], [place] [address] Sep, [facility] [address] [id number] [address] [place] [address], [place] [address] Sep, [facility] [address] [id number] [address] [place] [address], [place] [address] Sep, [facility] [address] [id number] [address] [place] [address], [place] [address] Sep, [facility] [address] [id number] [address] [place] [address], [place] [address] Aug, [facility] [address] [id number] [address] [place] [address], [place] [address] Aug, [facility] [address] [id number] [address] [place] [address], [place] [address] 25 Aug, 2012 [facility] [address] [id number] [address] [place] [address], [place] [address] 21 Aug, 2012 [facility] [address] [id number] [address] [place] [address], [place] [address] 19 Aug, 2012 [facility] [address] [id number] [address] [place] [address], [place] [address] 18 Aug, 2012 [facility] [address] [id number] [address] [place] [address], [place] [address] 17 Aug, 2012 [facility] [address] [id number] [address] [place] [address], [place] [address] 15 Aug, 2012 [facility] [address] [id number] [address] [place] [address], [place] [address] 15 Aug, 2012 [facility] [address] [id number] [address] [place] [address], [place] [address] 11 Aug, 2012 [facility] [address] [id number] [address] [place] [address], [place] [address] Aug, [facility] [address] [id number] [address] [place] [address], [place] [address] Aug, [facility] [address] [id number] [address] [place] [address], [place] [address] Jul, [facility] [address] [id number] [address] [place] [address], [place] [address] Jul, [facility] [address] [id number] [address] [place] [address], [place] [address] Jul, [facility] [address] [id number] [address] [place] [address], [place] [address] Jul, [facility] [address] [id number] [address] [place] [address], [place] [address] Jul, [facility] [address] [id number] [address] [place] [address], [place] [address] Jul, [facility] [address] [id number] [address] [place] [address], [place] [address] Jul, [facility] [address] [id number] [address] [place] [address], [place] [address] Jul, [facility] [address] [id number] [address] [place] [address], [place] [address] Jul, [facility] [address] [id number] [address] [place] [address] Jul, [facility] [address] [id number] [address] [place] [address] May, [facility] [address] [id number] [id number] May, [facility] [address] [id number] [address] [place] [phone] May, [facility] [address] [id number] [address] [place] [address], [place] [id number] 14 May, 2012 [facility] [address] [id number] [address] [place] [address], [place] [address] May, [facility] [address] [id number] [address] [place] [address], [place] [address] Apr, [facility] [place] [address] [id number] [place] [id number] Apr, [facility] [address] [facility] [id number] [address] [place] [address], [place] [address] Apr, [facility] [address] [facility] [id number] [address] [place] [address], [place] [address] Mar, [facility] [place] [address] [id number] [place] [id number] Mar, [facility] [address] [facility] [id number] [address] [place] [address], [place] [address] Mar, [facility] [place] [address] [id number] [place] [id number] Feb, [facility] [address] [facility] [id number] [address] [place] [address], [place] [address] Feb, [facility] [address] [facility] [id number] [address] [place] [address], [place] [address] Feb, [facility] [address] [id number] [place] [id number] Feb, [facility] [address] [id number] [place] [id number] Feb, [facility] [address] [id number] [place] [id number] Jan, [facility] [address] [id number] [address] [place] [address], [place] [address] Jan, [facility] [place] [address] [id number] [place] [id number] Jan, [facility] [address] [id number] [place] [id number] Jan, [facility] [place] [address] [id number] [place] [id number] Jan, [facility] [address] [id number] [address] [place] [address], [place] [address] Jan, [facility] [address] [facility] [id number] [address] [place] [address], [place] [address] Jan, [facility] [address] [facility] [id number] [address] [place] [address], [place] [address] Aug, [facility] [place] [address] [facility] [id number] [place] [id number] Aug, [facility] [address] [facility] [id number] [address] [place] [address], [place] [address] Jul, [facility] [address] [facility] [id number] [address] [place] [address], [place] [address] Jul, [facility] [address] [facility] [id number] [address] [place] [address], [place] [address] Jul, [facility] [place] [address] [facility] [id number] [place] [id number] Jul, [facility] [address] [facility] [id number] [address] [place] [address], [place] [address] Jul, [facility] [place] [address] [facility] [id number] [place] [id number] Jul, [facility] [address] [facility] [id number] [address] [place] [address], [place] [address] Jul, [facility] [place] [address] [id number] [place] [id number] Jul, [facility] [place] [address] [id number] [place] [id number] Jul, [facility] [place] [address] [id number] [place] [id number] Jul, [facility] [address] [facility] [id number] [address] [place] [address], [place] [address] May, [facility] [address] [facility] [id number] [address] [place] [address], [place] [address] May, [facility] [address] [id number] [address] [place] [id number] May, [facility] [place] [address] [id number] [address] [place] [id number] Apr, [facility] [place] [address] [id number] [address] [place] [phone] Jan, [facility] [place] [address] [id number] [address] [place] [id number] Jan, [facility] [place] [address] [id number] [address] [place] [phone] Dec, [facility] [place] [address] [id number] [address] [place] [id number] Dec, [facility] [place] [address] [id number] [address] [place] [id number] 16 May, 2009 [facility] [place] [address] [id number] [address] [place] [id number] Mar, [facility] [place] [address] [id number] [address] [place] [id number] Mar, [facility] [place] [address] [id number] [address] [place] [phone] Jan, IMMUNIZATIONS No Known Immunizations SOCIAL HISTORY Never Assessed REASON FOR VISIT [facility] [place] PLAN OF CARE VITAL SIGNS MEDICATIONS Unknown [...]
--- OUTSIDE RECORDS SUMMARY | 2020-01-28 13:04 | XMS REPORT ---
Author Author Heydi Candelario Doctor Organization 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 Web Site Developer Name Role Phone Migration, Doctor Unavailable Unavailable PROBLEMS Type Condition ICD9-CM Code [id number] Code Onset Dates Condition S tatus SNOMED Code Problem Chronic pain syndrome G89.4 Active 643769941 Problem Sore throat J02.9 Active 53303280 3 Problem Choriocarcinoma C58 Active 1881 20686 Problem jail current use of anticoagulant Z79.01 Active 928007624 Problem History of venous thromboembolism V12.51 Active 767555874 Problem Cellulitis of unspecified part of limb L03.119 Active 812055794 Problem Gastroesophageal reflux disease without esophagitis K21.9 Active 043440857 Problem History of pulmonary embolism Z86.711 Active 866310335 Problem Pseudotumor cerebri G93.2 Active 96257216 Problem History of DVT (deep vein thrombosis) Z86.718 Active 085928129 ALLERGIES No Information ENCOUNTERS Encounter Location Date Diagnosis [place] [address] [address] [facility] [id number] [address] [place] [address] 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, 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 [place] [id number] [facility] [id number] [address] [place] [address] Apr, 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 [place] [id number] [facility] [id number] [address] [place] [address] Apr, Cellulitis of unspecified pa rt of limb L03.119 ; Allergic contact dermatitis due to adhesives L23.1 and Chronic pain syndrome G89.4 [facility] [address] [facility] [id number] [address] [place] [address] Apr, [place] [address] [address] [facility] [id number] [address] [place] [address] Apr, jail current use of ant icoagulant Z79.01 ; Cellulitis of unspecified part of limb L03.119 ; Chronic pain syndrome G89.4 and Anxiety F41.9 [place] [address] [place] [id number] [address] [place] [address] 16 Apr, 2015 [place] [address] [address] [place] [id number] [place] [address] Apr, [place] [address] [address] Mar, [place] [address] [address] [place] [id number] [place] [address] Mar, [place] [address] [address] Mar, Sore throat J02.9 ; Gastroes ophageal reflux disease without esophagitis K21.9 ; Pseudotumor cerebri G93.2 ; Chronic pain syndrome G89.4 ; Choriocarcinoma C58 ; History of pulmonary embolism Z86.711 ; History of DVT (deep vein thrombosis) Z86.718 ; Anxiety F41.9 and Tachycardia R00.0 [place] [address] [address] Feb, Anxiety 300.00 and Chronic p ain 338.29 [place] [address] [address] [place] [id number] [address] [place] [address] Feb, [place] [id number] [place] [address] Feb, [place] [address] [address] [place] [id number] [place] [address] Jan, jail current use of ant icoagulant therapy V58.61 and Dysuria 788.1 [place] [address] [address] [place] [id number] [address] [place] [address] Jan, Dysuria 788.1 [place] [address] [address] [place] [id number] [place] [address] Jan, Anxiety 300.00 and Chronic p ain 338.29 [place] [address] [address] Jan, [facility] [address] [address] Jan, [place] [address] [address] Jan, [place] [address] [address] Dec, Weakness 780.79 [place] [address] [address] Dec, 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 [place] [address] [address] Dec, Palpitations 785.1 ; Tremor 781.0 ; Weakness 780.79 ; jail current use of anticoagulant therapy V58.61 and Yeast vaginitis 112.1 [place] [address] [address] Dec, [place] [address] [address] Dec, Cervicalgia 723.1 ; Tachycar yoseph 785.0 ; Pseudotumor cerebri 348.2 and History of venous thromboembolism V12.51 [place] [address] [address] [place] [id number] [address] [place] [address] Nov, [place] [address] [address] Nov, [place] [address] [address] Nov, Tachycardia 785.0 ; Pseudotu mor cerebri 348.2 ; Anxiety 300.00 and History of venous thromboembolism V12.51 [facility] [address] [id number] [address] [place] [address], [place] [address] Nov, [facility] [address] [id number] [address] [place] [address], [place] [address] 18 Nov, 2014 [facility] [address] [id number] [address] [place] [address], [place] [address] 16 Nov, 2014 [facility] [address] [id number] [address] [place] [address], [place] [address] Nov, [facility] [address] [id number] [address] [place] [address], [place] [address] Nov, [facility] [address] [id number] [address] [place] [address], [place] [address] Nov, [facility] [address] [id number] [address] [place] [address], [place] [address] Nov, [facility] [address] [id number] [address] [place] [address] October, [facility] [address] [id number] [address] [place] [address] October, [facility] [address] [id number] [address] [place] [address] October, Pain in thoracic spine 724.1 and Tachycardia 785.0 [facility] [address] [id number] [address] [place] [address] October, [facility] [address] [id number] [address] [place] [address] October, [facility] [address] [id number] [address] [place] [address] Sep, [facility] [address] [id number] [address] [place] [address] Sep, [facility] [address] [id number] [address] [place] [address] Aug, [facility] [address] [id number] [address] [place] [address], [place] [address] Aug, [facility] [address] [id number] [address] [place] [address], [place] [address] Aug, [facility] [address] [id number] [address] [place] [address], [place] [address] 17 Aug, 2014 [facility] [address] [id number] [address] [place] [address], [place] [address] Aug, [facility] [address] [id number] [address] [place] [address], [place] [address] 16 Aug, 2014 [facility] [address] [id number] [address] [place] [address], [place] [address] Aug, [facility] [address] [id number] [address] [place] [address], [place] [address] Aug, [facility] [address] [id number] [address] [place] [address], [place] [address] Aug, 2014 [facility] [address] [id number] [address] [place] [address], [place] [address] Aug, [facility] [address] [id number] [address] [place] [address], [place] [address] Aug, [facility] [address] [id number] [address] [place] [address], [place] [address] Aug, [facility] [address] [id number] [address] [place] [address], [place] [address] Jul, 2014 [facility] [address] [id number] [address] [place] [address], [place] [address] Jul, 2014 [facility] [address] [id number] [address] [place] [address], [place] [address] Jul, 2014 [facility] [address] [id number] [address] [place] [address], [place] [address] Jul, 2014 [facility] [address] [id number] [address] [place] [address], [place] [address] b, 2014 [facility] [address] [id number] [address] [place] [address], [place] [address] 23 Jul, 2014 [facility] [address] [id number] [address] [place] [address], [place] [address] 23 Jul, 2014 [facility] [address] [id number] [address] [place] [address], [place] [address] 23 Jul, 2014 [facility] [address] [id number] [address] [place] [address], [place] [address] 20 Jul, 2014 [facility] [address] [id number] [address] [place] [address], [place] [address] 20 Jul, 2014 [facility] [address] [id number] [address] [place] [address], [place] [address] 19 Jul, 2014 [facility] [address] [id number] [address] [place] [address], [place] [address] 19 Jul, 2014 [facility] [address] [id number] [address] [place] [address], [place] [address] 17 Jul, 2014 [facility] [address] [id number] [address] [place] [address], [place] [address] 17 Jul, 2014 [facility] [address] [id number] [address] [place] [address], [place] [address] 16 Jul, 2014 [facility] [address] [id number] [address] [place] [address], [place] [address] 16 Jul, 2014 [facility] [address] [id number] [address] [place] [address], [place] [address] 16 Jul, 2014 [facility] [address] [id number] [address] [place] [address], [place] [address] 16 Jul, 2014 [facility] [address] [id number] [address] [place] [address], [place] [address] 13 Jul, 2014 [facility] [address] [id number] [address] [place] [address], [place] [address] Jul, 2014 [facility] [address] [id number] [address] [place] [address], [place] [address] Jul, 2014 [facility] [address] [id number] [address] [place] [address], [place] [address] Jul, 2014 [facility] [address] [id number] [address] [place] [address], [place] [address] Jul, 2014 [facility] [address] [id number] [address] [place] [address], [place] [address] Jul, 2014 [facility] [address] [id number] [address] [place] [address], [place] [address] Jul, [facility] [address] [id number] [address] [place] [address], [place] [address] Jul, [facility] [address] [id number] [address] [place] [address], [place] [address] Jul, [facility] [address] [id number] [address] [place] [address], [place] [address] Jul, [facility] [address] [id number] [address] [place] [address], [place] [address] Jul, [facility] [address] [id number] [address] [place] [address], [place] [address] Jul, [facility] [address] [id number] [address] [place] [address], [place] [address] Jun, [facility] [address] [id number] [address] [place] [address], [place] [address] Jun, [facility] [address] [id number] [address] [place] [address], [place] [address] Jun, [facility] [address] [id number] [address] [place] [address], [place] [address] Jun, [facility] [address] [id number] [address] [place] [address], [place] [address] Jun, [facility] [address] [id number] [address] [place] [address], [place] [address] Jun, [facility] [address] [id number] [address] [place] [address], [place] [address] Jun, [facility] [address] [id number] [address] [place] [address], [place] [address] Jun, [facility] [address] [id number] [address] [place] [address], [place] [address] Jun, [facility] [address] [id number] [address] [place] [address], [place] [address] Jun, [facility] [address] [id number] [address] [place] [address], [place] [address] Jun, [facility] [address] [id number] [address] [place] [address], [place] [address] Jun, [facility] [address] [id number] [address] [place] [address], [place] [address] Jun, [facility] [address] [id number] [address] [place] [address], [place] [address] Jun, [facility] [address] [id number] [address] [place] [address], [place] [address] Jun, [facility] [address] [id number] [address] [place] [address], [place] [address] Jun, [facility] [address] [id number] [address] [place] [address], [place] [address] Jun, [facility] [address] [id number] [address] [place] [address], [place] [address] Jun, [facility] [address] [id number] [address] [place] [address], [place] [address] Jun, [facility] [address] [id number] [address] [place] [address], [place] [address] Jun, [facility] [address] [id number] [address] [place] [address], [place] [address] May, [facility] [address] [id number] [address] [place] [address], [place] [address] May, [facility] [address] [id number] [address] [place] [address], [place] [address] May, [facility] [address] [id number] [address] [place] [address], [place] [address] May, [facility] [address] [id number] [address] [place] [address], [place] [address] May, [facility] [address] [id number] [address] [place] [address], [place] [address] May, [facility] [address] [id number] [address] [place] [address], [place] [address] May, [facility] [address] [id number] [address] [place] [address], [place] [address] May, [facility] [address] [id number] [address] [place] [address], [place] [address] May, [facility] [address] [id number] [address] [place] [address], [place] [address] May, [facility] [address] [id number] [address] [place] [address], [place] [address] May, [facility] [address] [id number] [address] [place] [address], [place] [address] 18 May, 2014 [facility] [address] [id number] [address] [place] [address], [place] [address] 18 May, 2014 [facility] [address] [id number] [address] [place] [address], [place] [address] 17 May, 2014 [facility] [address] [id number] [address] [place] [address], [place] [address] 16 May, 2014 [facility] [address] [id number] [address] [place] [address], [place] [address] 16 May, 2014 [facility] [address] [id number] [address] [place] [address], [place] [address] 15 May, 2014 [facility] [address] [id number] [address] [place] [address], [place] [address] 15 May, 2014 [facility] [address] [id number] [address] [place] [address], [place] [address] May, [facility] [address] [id number] [address] [place] [address], [place] [address] May, [facility] [address] [id number] [address] [place] [address], [place] [address] May, [facility] [address] [id number] [address] [place] [address], [place] [address] May, [facility] [address] [id number] [address] [place] [address], [place] [address] May, [facility] [address] [id number] [address] [place] [address], [place] [address] May, [facility] [address] [id number] [address] [place] [address], [place] [address] May, [facility] [address] [id number] [address] [place] [address], [place] [address] May, [facility] [address] [id number] [address] [place] [address], [place] [address] May, [facility] [address] [id number] [address] [place] [address], [place] [address] May, [facility] [address] [id number] [address] [place] [address], [place] [address] May, [facility] [address] [id number] [address] [place] [address], [place] [address] May, [facility] [address] [id number] [address] [place] [address], [place] [address] May, [facility] [address] [id number] [address] [place] [address], [place] [address] May, [facility] [address] [id number] [address] [place] [address], [place] [address] May, [facility] [address] [id number] [address] [place] [address], [place] [address] May, [facility] [address] [id number] [address] [place] [address], [place] [address] Apr, [facility] [address] [id number] [address] [place] [address], [place] [address] Apr, [facility] [address] [id number] [address] [place] [address], [place] [address] Apr, [facility] [address] [id number] [address] [place] [address], [place] [address] Apr, [facility] [address] [id number] [address] [place] [address], [place] [address] Apr, [facility] [address] [id number] [address] [place] [address], [place] [address] Apr, [facility] [address] [id number] [address] [place] [address], [place] [address] Apr, [facility] [address] [id number] [address] [place] [address], [place] [address] Apr, [facility] [address] [id number] [address] [place] [address], [place] [address] Apr, [facility] [address] [id number] [address] [place] [address], [place] [address] Apr, [facility] [address] [id number] [address] [place] [address], [place] [address] Mar, [facility] [address] [id number] [address] [place] [address], [place] [address] Mar, [facility] [address] [id number] [address] [place] [address], [place] [address] Mar, [facility] [address] [id number] [address] [place] [address], [place] [address] 31 Mar, 2013 [facility] [address] [id number] [address] [place] [address], [place] [address] 30 Mar, 2013 [facility] [address] [id number] [address] [place] [address], [place] [address] 30 Mar, 2014 [facility] [address] [id number] [address] [place] [address], [place] [address] Mar, 2013 [facility] [address] [id number] [address] [place] [address], [place] [address] 17 Mar, 2013 [facility] [address] [id number] [address] [place] [address], [place] [address] 15 Mar, 2014 [facility] [address] [id number] [address] [place] [id number] 15 Mar, 2014 [facility] [address] [id number] [address] [place] [address], [place] [address] 15 Mar, 2014 [facility] [address] [id number] [address] [place] [id number] Mar, [facility] [address] [id number] [address] [place] [address], [place] [address] Mar, [facility] [address] [id number] [address] [place] [id number] Mar, [facility] [address] [id number] [address] [place] [id number] Mar, [facility] [address] [id number] [address] [place] [id number] Mar, 2013 [facility] [address] [id number] [address] [place] [address], [place] [address] Mar, [facility] [address] [id number] [address] [place] [id number] Mar, [facility] [address] [id number] [address] [place] [id number] Mar, 2013 [facility] [address] [id number] [address] [place] [address], [place] [id number] 02 Mar, 2013 [facility] [address] [id number] [address] [place] [address], [place] [address] 05 Sep, 2013 [facility] [address] [id number] [address] [place] [address], [place] [address] 05 Sep, 2013 [facility] [address] [id number] [address] [place] [address], [place] [address] 04 Sep, 2013 [facility] [address] [id number] [address] [place] [address], [place] [id number] 04 Sep, 2013 [facility] [address] [id number] [address] [place] [address], [place] [address] 03 Feb, 2013 [facility] [address] [id number] [address] [place] [address], [place] [address] Feb, 2013 [facility] [address] [id number] [address] [place] [address], [place] [address] Feb, 2013 [facility] [address] [id number] [address] [place] [address], [place] [address] Feb, 2013 [facility] [address] [id number] [address] [place] [address], [place] [address] Feb, 2013 [facility] [address] [id number] [address] [place] [address], [place] [address] Feb, 2013 [facility] [address] [id number] [address] [place] [address], [place] [address] Jan, [facility] [address] [id number] [address] [place] [address], [place] [address] Jan, [facility] [address] [id number] [address] [place] [address], [place] [address] Jan, [facility] [address] [id number] [address] [place] [address], [place] [address] Jan, [facility] [address] [id number] [address] [place] [address], [place] [address] Jan, [facility] [address] [id number] [address] [place] [address], [place] [address] Jan, [facility] [address] [id number] [address] [place] [address], [place] [address] Jan, [facility] [address] [id number] [address] [place] [address], [place] [address] Jan, [facility] [address] [id number] [address] [place] [address], [place] [address] Jan, [facility] [address] [id number] [address] [place] [address], [place] [address] Jan, [facility] [address] [id number] [address] [place] [address], [place] [address] Jan, [facility] [address] [id number] [address] [place] [address], [place] [address] Jan, [facility] [address] [id number] [address] [place] [address], [place] [address] Dec, [facility] [address] [id number] [address] [place] [address], [place] [address] Dec, [facility] [address] [id number] [address] [place] [address], [place] [address] Dec, [facility] [address] [id number] [address] [place] [address], [place] [address] Dec, [facility] [address] [id number] [address] [place] [address], [place] [address] Dec, [facility] [address] [id number] [address] [place] [address], [place] [address] Dec, [facility] [address] [id number] [address] [place] [address], [place] [address] Dec, [facility] [address] [id number] [address] [place] [address], [place] [address] Dec, [facility] [address] [id number] [address] [place] [address], [place] [address] Dec, [facility] [address] [id number] [address] [place] [address], [place] [address] Dec, [facility] [address] [id number] [address] [place] [address], [place] [address] Dec, [facility] [address] [id number] [address] [place] [address], [place] [address] Dec, [facility] [address] [id number] [address] [address], [place] [address] Nov, [facility] [address] [id number] [address] [address], [place] [address] Nov, [facility] [address] [id number] [address] [address], [place] [address] Nov, [facility] [address] [id number] [address] [place] [address], [place] [address] Nov, [facility] [address] [id number] [address] [address], [place] [address] Nov, [facility] [address] [id number] [address] [place] [address], [place] [address] Nov, [facility] [address] [id number] [address] [address], [place] [address] Nov, [facility] [address] [id number] [address] [place] [address], [place] [address] Nov, [facility] [address] [id number] [address] [place] [address] Nov, [facility] [address] [id number] [address] [place] [address], [place] [address] Nov, [facility] [address] [id number] [address] [address], [place] [address] Nov, [facility] [address] [id number] [address] [place] [address], [place] [address] Nov, [facility] [address] [id number] [address] [place] [address], [place] [address] Nov, [facility] [address] [id number] [address] [place] [address], [place] [address] Nov, [facility] [address] [id number] [address] [address], [place] [address] October, [facility] [address] [id number] [address] [place] [address], [place] [address] October, [facility] [address] [id number] [address] [place] [address], [place] [address] October, [facility] [address] [id number] [address] [address], [place] [address] October, [facility] [address] [id number] [address] [place] [address], [place] [address] October, [facility] [address] [id number] [address] [place] [address], [place] [address] October, [facility] [address] [id number] [address] [place] [address], [place] [address] October, [facility] [address] [id number] [address] [place] [address], [place] [address] October, [facility] [address] [id number] [address] [place] [address], [place] [address] October, [facility] [address] [id number] [address] [place] [address], [place] [address] October, [facility] [address] [id number] [address] [place] [address], [place] [address] October, [facility] [address] [id number] [address] [place] [address], [place] [address] October, [facility] [address] [id number] [address] [place] [address], [place] [address] Sep, [facility] [address] [id number] [address] [place] [address], [place] [address] Sep, [facility] [address] [id number] [facility] [place] [address] Sep, [facility] [address] [id number] [address] [place] [address], [place] [address] Sep, [facility] [address] [id number] [address] [address], [place] [address] Sep, [facility] [address] [id number] [address] [address], [place] [address] Sep, [facility] [address] [id number] [address] [address], [place] [address] Aug, [facility] [address] [id number] [address] [address], [place] [address] Aug, [facility] [address] [id number] [address] [address], [place] [address] Aug, [facility] [address] [id number] [address] [address], [place] [address] Aug, [facility] [address] [id number] [address] [address], [place] [address] Aug, [facility] [address] [id number] [address] [address], [place] [address] Aug, [facility] [address] [id number] [address] [address], [place] [address] Jul, [facility] [address] [id number] [address] [address], [place] [address] Jul, [facility] [address] [id number] [address] [address], [place] [address] Jul, [facility] [address] [id number] [address] [address], [place] [address] Jul, [facility] [address] [id number] [address] [address], [place] [address] Jul, [facility] [address] [id number] [address] [address], [place] [address] 13 Jul, 2013 [facility] [address] [id number] [address] [address], [place] [address] Jul, [facility] [address] [id number] [address] [address], [place] [address] Jul, [facility] [address] [id number] [address] [address], [place] [address] Jul, [facility] [address] [id number] [address] [place] [address], [place] [address] Jul, [facility] [address] [id number] [address] [address], [place] [address] Jun, [facility] [address] [id number] [address] [place] [address], [place] [address] Jun, [facility] [address] [id number] [address] [address], [place] [address] Jun, [facility] [address] [id number] [address] [place] [address], [place] [address] Jun, [facility] [address] [id number] [address] [address], [place] [address] Jun, [facility] [address] [id number] [address] [address], [place] [address] Jun, [facility] [address] [id number] [address] [address], [place] [address] Jun, [facility] [address] [id number] [address] [place] [address], [place] [address] Jun, [facility] [address] [id number] [address] [address], [place] [address] May, [facility] [address] [id number] [address] [place] [address], [place] [address] May, [facility] [address] [id number] [address] [place] [address] [address] May, [facility] [address] [id number] [address] [address], [place] [address] May, [facility] [address] [id number] [address] [address], [place] [address] May, [facility] [address] [id number] [address] [address], [place] [address] May, [facility] [address] [id number] [address] [address], [place] [address] May, [facility] [address] [id number] [address] [address], [place] [address] May, [facility] [address] [id number] [address] [address], [place] [address] Apr, [facility] [address] [id number] [address] [address], [place] [address] Apr, [facility] [address] [id number] [address] [place] [address] Apr, [facility] [address] [id number] [address] [place] [address] Apr, [facility] [address] [id number] [address] [place] [address] Apr, [facility] [address] [id number] [address] [place] [address] Apr, [facility] [address] [id number] [address] [place] [address] Mar, [facility] [address] [id number] [address] [place] [address] Mar, [facility] [address] [id number] [address] [place] [address] Mar, [facility] [address] [id number] [address] [place] [address] Mar, [facility] [address] [id number] [address] [address], [place] [address] Mar, [facility] [address] [id number] [address] [address], [place] [address] Mar, [facility] [address] [id number] [address] [address], [place] [address] Mar, [facility] [address] [id number] [address] [address], [place] [address] 30 Feb, 2013 [facility] [address] [id number] [address] [address], [place] [address] 30 Feb, 2013 [facility] [address] [id number] [address] [address], [place] [address] 27 Feb, 2013 [facility] [address] [id number] [address] [address], [place] [address] Feb, [facility] [address] [id number] [address] [address], [place] [address] Feb, [facility] [address] [id number] [address] [address], [place] [address] Feb, [facility] [address] [id number] [address] [address], [place] [address] Jan, [facility] [address] [id number] [address] [address], [place] [address] Jan, [facility] [address] [id number] [address] [address], [place] [address] Jan, [facility] [address] [id number] [address] [address], [place] [address] Jan, [facility] [address] [id number] [address] [address], [place] [address] Jan, [facility] [address] [id number] [address] [address], [place] [address] Jan, [facility] [address] [id number] [address] [place] [address], [place] [address] Jan, [facility] [address] [id number] [address] [address], [place] [address] Jan, [facility] [address] [id number] [address] [address], [place] [address] Jan, [facility] [address] [id number] [address] [address], [place] [address] Dec, [facility] [address] [id number] [address] [address], [place] [address] Dec, [facility] [address] [id number] [address] [address], [place] [address] Dec, [facility] [address] [id number] [address] [address], [place] [address] Dec, [facility] [address] [id number] [address] [address], [place] [address] Dec, [facility] [address] [id number] [address] [address], [place] [address] Dec, [facility] [address] [id number] [address] [address], [place] [address] Dec, [facility] [address] [id number] [address] [address], [place] [address] Dec, [facility] [address] [id number] [address] [address], [place] [address] Dec, [facility] [address] [id number] [address] [address], [place] [address] Dec, [facility] [address] [id number] [address] [address], [place] [address] Dec, [facility] [address] [id number] [address] [address], [place] [address] Dec, [facility] [address] [id number] [address] [address], [place] [address] Dec, [facility] [address] [id number] [address] [address], [place] [address] Nov, [facility] [address] [id number] [address] [address], [place] [address] Nov, [facility] [address] [id number] [address] [address], [place] [address] Nov, [facility] [address] [id number] [address] [address], [place] [address] Nov, [facility] [address] [id number] [address] [address], [place] [address] October, [facility] [address] [id number] [address] [place] [address], [place] [address] October, [facility] [address] [id number] [address] [place] [address], [place] [address] October, [facility] [address] [id number] [address] [place] [address], [place] [address] October, [facility] [address] [id number] [address] [place] [address], [place] [address] October, [facility] [address] [id number] [address] [address], [place] [address] October, [facility] [address] [id number] [address] [place] [address], [place] [address] 30 Sep, 2012 [facility] [address] [id number] [address] [place] [address], [place] [address] 29 Sep, 2012 [facility] [address] [id number] [address] [place] [address], [place] [address] 27 Sep, 2012 [facility] [address] [id number] [address] [place] [address], [place] [address] 23 Sep, 2012 [facility] [address] [id number] [address] [place] [address], [place] [address] Sep, [facility] [address] [id number] [address] [place] [address], [place] [address] 16 Sep, 2012 [facility] [address] [id number] [facility] [place] [address] 12 Sep, 2012 [facility] [address] [id number] [address] [place] [address], [place] [address] Sep, [facility] [address] [id number] [address] [place] [address], [place] [address] Sep, [facility] [address] [id number] [address] [place] [address], [place] [address] Sep, [facility] [address] [id number] [address] [place] [address], [place] [address] Sep, [facility] [address] [id number] [address] [place] [address], [place] [address] Aug, [facility] [address] [id number] [address] [place] [address], [place] [address] Aug, [facility] [address] [id number] [address] [place] [address], [place] [address] 25 Aug, [address] [facility] [address] [id number] [address] [place] [address], [place] [address] 21 Aug, 2012 [facility] [address] [id number] [address] [place] [address], [place] [address] 19 Aug, [address] [facility] [address] [id number] [address] [place] [address], [place] [address] 18 Aug, 2012 [facility] [address] [id number] [address] [place] [address], [place] [address] 17 Aug, [address] [facility] [address] [id number] [address] [place] [address], [place] [address] 15 Aug, 2012 [facility] [address] [id number] [address] [place] [address], [place] [address] 15 Aug, [address] [facility] [address] [id number] [address] [place] [address], [place] [address] 11 Aug, 2012 [facility] [address] [id number] [address] [place] [address], [place] [address] Aug, [facility] [address] [id number] [address] [address], [place] [address] Aug, [facility] [address] [id number] [address] [address], [place] [address] Jul, [facility] [address] [id number] [address] [address], [place] [address] Jul, [facility] [address] [id number] [address] [place] [address], [place] [address] Jul, [facility] [address] [id number] [address] [place] [address], [place] [address] Jul, [facility] [address] [id number] [address] [place] [address], [place] [address] Jul, [facility] [address] [id number] [address] [place] [address], [place] [address] Jul, [facility] [address] [id number] [address] [address], [place] [address] Jul, [facility] [address] [id number] [address] [place] [address], [place] [address] Jul, [facility] [address] [id number] [address] [address], [place] [address] Jul, [facility] [address] [id number] [address] [place] [id number] Jul, [facility] [address] [id number] [address] [place] [id number] May, [facility] [address] [id number] [place] [id number] May, [facility] [address] [id number] [address] [place] [id number] May, [facility] [address] [id number] [address] [place] [address], [place] [address] 14 May, 2012 [facility] [address] [id number] [address] [address], [place] [address] May, [facility] [address] [id number] [address] [place] [address], [place] [address] Apr, [facility] [place] [address] [id number] [place] [id number] Apr, [facility] [address] [facility] [id number] [address] [place] [address], [place] [address] Apr, [facility] [address] [facility] [id number] [address] [address], [place] [address] Mar, [facility] [place] [address] [id number] [place] [id number] Mar, [facility] [address] [facility] [id number] [address] [place] [address], [place] [address] Mar, [facility] [place] [address] [id number] [place] [id number] Feb, [facility] [address] [facility] [id number] [address] [address], [place] [address] Feb, [facility] [address] [facility] [id number] [address] [place] [address], [place] [address] Feb, [facility] [place] [address] [id number] [place] [id number] Feb, [facility] [place] [address] [id number] [place] [id number] Feb, [facility] [address] [id number] [place] [id number] Jan, [facility] [address] [id number] [address] [place] [address], [place] [address] Jan, [facility] [place] [address] [id number] [place] [id number] Jan, [facility] [place] [address] [id number] [place] [id number] Jan, [facility] [place] [address] [id number] [place] [id number] Jan, [facility] [address] [id number] [address] [place] [address], [place] [address] Jan, [facility] [address] [facility] [id number] [address] [place] [address], [place] [address] Jan, [facility] [address] [facility] [id number] [address] [place] [address], [place] [address] Aug, [facility] [place] [address] [facility] [id number] [place] [id number] Aug, [facility] [address] [facility] [id number] [address] [place] [address], [place] [address] Jul, [facility] [address] [facility] [id number] [address] [place] [address], [place] [address] Jul, [facility] [address] [facility] [id number] [address] [place] [address], [place] [address] Jul, [facility] [place] [address] [facility] [id number] [place] [id number] Jul, [facility] [address] [facility] [id number] [address] [place] [address], [place] [address] Jul, [facility] [place] [address] [facility] [id number] [place] [id number] Jul, [facility] [address] [facility] [id number] [address] [place] [address], [place] [address] Jul, [facility] [place] [address] [id number] [place] [id number] Jul, [facility] [place] [address] [id number] [place] [id number] Jul, [facility] [place] [address] [address] [id number] [place] [id number] Jul, [facility] [address] [facility] [id number] [address] [address], [place] [id number] May, [facility] [address] [facility] [id number] [address] [place] [address], [place] [id number] May, [facility] [address] [id number] [address] [place] [phone] May, [facility] [address] [id number] [address] [place] [id number] Apr, [facility] [address] [id number] [address] [place] [id number] Jan, [facility] [address] [id number] [address] [place] [id number] Jan, [facility] [address] [id number] [address] [place] [id number] Dec, [facility] [address] [id number] [address] [place] [id number] Dec, [facility] [address] [id number] [address] [place] [id number] 16 May, 2009 [facility] [address] [id number] [address] [place] [phone] Mar, [facility] [address] [id number] [address] [place] [id number] Mar, [facility] [address] [id number] [address] [place] [id number] Jan, IMMUNIZATIONS No Known Immunizations SOCIAL HISTORY Never Assessed REASON FOR VISIT [facility] [place] [facility] [...]
--- OUTSIDE RECORDS SUMMARY | 2020-01-28 13:05 | XMS REPORT ---
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 Name Role Phone Migration, Doctor Unavailable Unavailable PROBLEMS Type Condition ICD9-CM Code QHK29-EP Code Onset Dates Condition S tatus SNOMED Code Problem Chronic pain syndrome G89.4 Active 969619788 Problem Sore throat J02.9 Active 10946543 3 Problem Choriocarcinoma C58 Active 1881 17326 Problem custodial current use of anticoagulant Z79.01 Active 099958367 Problem History of venous thromboembolism V12.51 Active 512143221 Problem Cellulitis of unspecified part of limb L03.119 Active 176507343 Problem Gastroesophageal reflux disease without esophagitis K21.9 Active 643250817 Problem History of pulmonary embolism Z86.711 Active 744299730 Problem Pseudotumor cerebri G93.2 Active 88812825 Problem History of DVT (deep vein thrombosis) Z86.718 Active 086177199 ALLERGIES No Information ENCOUNTERS Encounter Location Date Diagnosis [place] [address] [place] [id number] [address] [place] [address] 14 Nov, 2019 Encounter for screening labo ratory testing for COVID-19 virus Z11.59 [place] [address] [place] [id number] [address] [place] [address] Apr, 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 [place] [address] [facility] [id number] [address] [place] [address] Apr, custodial current use of ant icoagulant Z79.01 [place] [address] [facility] [id number] [address] [place] [address] Apr, Cellulitis of unspecified pa rt of limb L03.119 ; Allergic contact dermatitis due to adhesives L23.1 and Chronic pain syndrome G89.4 [place] [address] [address] Apr, [facility] [address] [address] Apr, custodial current use of ant icoagulant Z79.01 ; Cellulitis of unspecified part of limb L03.119 ; Chronic pain syndrome G89.4 and Anxiety F41.9 [place] [address] [address] Apr, [facility] [address] [address] Apr, [place] [address] [address] Mar, [place] [address] [address] Mar, [place] [address] [address] Mar, Sore throat J02.9 ; Gastroes ophageal reflux disease without esophagitis K21.9 ; Pseudotumor cerebri G93.2 ; Chronic pain syndrome G89.4 ; Choriocarcinoma C58 ; History of pulmonary embolism Z86.711 ; History of DVT (deep vein thrombosis) Z86.718 ; Anxiety F41.9 and Tachycardia R00.0 [place] [address] [place] [id number] [address] [place] [address] Feb, Anxiety 300.00 and Chronic p ain 338.29 [facility] [address] [place] [id number] [address] [place] [address] Feb, [facility] [address] [address] Feb, [facility] [address] [place] [id number] [address] [place] [address] Jan, 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 use of ant icoagulant therapy V58.61 and Dysuria 788.1 [place] [address] [place] [id number] [address] [place] [address] Jan, Dysuria 788.1 [place] [address] [address] Jan, Anxiety 300.00 and Chronic p ain 338.29 [place] [address] [address] Jan, [place] [address] [address] Jan, [place] [address] [address] Jan, [place] [address] [address] Dec, Weakness 780.79 [place] [address] [address] Dec, 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 use of ant icoagulant therapy V58.[address] [address] Dec, Palpitations 785.1 ; Tremor 781.0 ; Weakness 780.79 ; custodial current use of anticoagulant therapy V58.61 and Yeast vaginitis 112.1 [place] [address] [place] [id number] [address] [place] [address] Dec, [place] [address] [address] Dec, Cervicalgia 723.1 ; Tachycar yoseph 785.0 ; Pseudotumor cerebri 348.2 and History of venous thromboembolism V12.51 [place] [address] [address] Nov, [place] [address] [place] [id number] [address] [place] [address] Nov, [place] [address] [place] [address] [place] [address] 24 Nov, 2014 Tachycardia 785.0 ; Pseudotu mor cerebri 348.2 ; Anxiety 300.00 and History of venous thromboembolism V12.51 [facility] [address] [id number] [address] [place] [address] 19 Nov, 2014 [facility] [address] [id number] [address] [place] [address] 18 Nov, 2014 [facility] [address] [id number] [address] [place] [address] 16 Nov, 2014 [facility] [address] [id number] [address] [place] [address] Nov, [facility] [address] [facility] [id number] [address] [place] [address] Nov, [facility] [address] [facility] [id number] [address] [place] [address] Nov, [facility] [address] [id number] [address] [place] [address] Nov, [facility] [address] [facility] [id number] [address] [place] [address] October, [facility] [address] [facility] [id number] [address] [place] [address] October, [facility] [address] [facility] [id number] [address] [place] [address] October, Pain in thoracic spine 724.1 and Tachycardia 785.0 [facility] [address] [id number] [address] [place] [address] October, [facility] [address] [facility] [id number] [address] [place] [address] October, [facility] [address] [facility] [id number] [address] [place] [address] 14 Sep, 2014 [facility] [address] [facility] [id number] [address] [place] [address] Sep, [facility] [address] [id number] [address] [place] [address], [place] [address] Aug, [facility] [address] [id number] [address] [place] [address], [place] [address] Aug, [facility] [address] [id number] [address] [place] [address], [place] [address] Aug, [facility] [address] [id number] [address] [place] [address], [place] [address] Aug, [facility] [address] [id number] [address] [place] [address], [place] [address] Aug, [facility] [address] [id number] [address] [place] [address], [place] [address] Aug, [facility] [address] [id number] [address] [place] [address], [place] [address] Aug, [facility] [address] [id number] [address] [place] [address], [place] [address] Aug, [facility] [address] [id number] [address] [place] [address], [place] [address] Aug, [facility] [address] [id number] [address] [place] [address], [place] [address] Aug, [facility] [address] [id number] [address] [place] [address], [place] [address] Aug, [facility] [address] [id number] [address] [place] [address], [place] [address] Aug, [facility] [address] [id number] [address] [place] [address], [place] [address] Jul, [facility] [address] [id number] [address] [place] [address], [place] [address] Jul, [facility] [address] [id number] [address] [place] [address], [place] [address] Jul, [facility] [address] [id number] [address] [place] [address], [place] [address] 23 Jul, 2014 [facility] [address] [id number] [address] [place] [address], [place] [address] 23 Jul, 2014 [facility] [address] [id number] [address] [place] [address], [place] [address] 23 Jul, 2014 [facility] [address] [id number] [address] [place] [address], [place] [address] 23 Jul, 2014 [facility] [address] [id number] [address] [place] [address], [place] [address] 23 Jul, 2014 [facility] [address] [id number] [address] [place] [address], [place] [address] 20 Jul, 2014 [facility] [address] [id number] [address] [place] [address], [place] [address] 20 Jul, 2014 [facility] [address] [id number] [address] [place] [address] 19 Jul, 2014 [facility] [address] [id number] [address] [place] [address], [place] [address] 19 Jul, 2014 [facility] [address] [id number] [address] [place] [address] 17 Jul, 2014 [facility] [address] [id number] [address] [place] [address] 17 Jul, 2014 [facility] [address] [id number] [address] [place] [address] 16 Jul, 2014 [facility] [address] [id number] [address] [place] [address], [place] [address] 16 Jul, 2014 [facility] [address] [id number] [address] [place] [address] 16 Jul, 2014 [facility] [address] [id number] [address] [place] [address] 16 Jul, 2014 [facility] [address] [id number] [address] [place] [address], [place] [address] 13 Jul, 2014 [facility] [address] [id number] [address] [place] [address], [place] [address] Jul, 2014 [facility] [address] [id number] [address] [place] [address], [place] [address] Jul, 2014 [facility] [address] [id number] [address] [place] [address], [place] [address] Jul, 2014 [facility] [address] [id number] [address] [place] [address], [place] [address] Jul, 2014 [facility] [address] [id number] [address] [place] [address], [place] [address] Jul, [facility] [address] [id number] [address] [place] [address], [place] [address] Jul, 2014 [facility] [address] [id number] [address] [place] [address], [place] [address] Jul, [facility] [address] [id number] [address] [place] [address], [place] [address] Jul, [facility] [address] [id number] [address] [place] [address], [place] [address] Jul, [facility] [address] [id number] [address] [place] [address] Jul, [facility] [address] [id number] [address] [place] [address] Jul, [facility] [address] [id number] [address] [place] [address], [place] [address] Jun, [facility] [address] [id number] [address] [place] [address] Jun, [facility] [address] [id number] [address] [place] [address] Jun, [facility] [address] [id number] [address] [place] [address] Jun, [facility] [address] [id number] [address] [place] [address], [place] [address] Jun, [facility] [address] [id number] [address] [place] [address], [place] [address] Jun, [facility] [address] [id number] [address] [place] [address], [place] [address] Jun, [facility] [address] [id number] [address] [place] [address], [place] [address] Jun, [facility] [address] [id number] [address] [place] [address], [place] [address] Jun, [facility] [address] [id number] [address] [place] [address], [place] [address] Jun, [facility] [address] [id number] [address] [place] [address], [place] [address] Jun, [facility] [address] [id number] [address] [place] [address], [place] [address] Jun, [facility] [address] [id number] [address] [place] [address], [place] [address] Jun, [facility] [address] [id number] [address] [place] [address], [place] [address] Jun, [facility] [address] [id number] [address] [place] [address], [place] [address] Jun, [facility] [address] [id number] [address] [place] [address], [place] [address] Jun, [facility] [address] [id number] [address] [place] [address], [place] [address] Jun, [facility] [address] [id number] [address] [place] [address], [place] [address] Jun, [facility] [address] [id number] [address] [place] [address], [place] [address] Jun, [facility] [address] [id number] [address] [place] [address], [place] [address] Jun, [facility] [address] [id number] [address] [place] [address], [place] [address] May, [facility] [address] [id number] [address] [place] [address], [place] [address] May, [facility] [address] [id number] [address] [place] [address], [place] [address] May, [facility] [address] [id number] [address] [place] [address], [place] [address] May, [facility] [address] [id number] [address] [place] [address], [place] [address] May, [facility] [address] [id number] [address] [place] [address], [place] [address] May, [facility] [address] [id number] [address] [place] [address], [place] [address] May, [facility] [address] [id number] [address] [place] [address], [place] [address] May, [facility] [address] [id number] [address] [place] [address], [place] [address] May, [facility] [address] [id number] [address] [place] [address], [place] [address] May, [facility] [address] [id number] [address] [place] [address], [place] [address] May, [facility] [address] [id number] [address] [place] [address], [place] [address] 18 May, 2014 [facility] [address] [id number] [address] [place] [address], [place] [address] 18 May, 2014 [facility] [address] [id number] [address] [place] [address], [place] [address] 17 May, 2014 [facility] [address] [id number] [address] [place] [address], [place] [address] 16 May, 2014 [facility] [address] [id number] [facility] [place] [address] 16 May, 2014 [facility] [address] [id number] [facility] [place] [address] 15 May, 2014 [facility] [address] [id number] [address] [place] [address], [place] [address] 15 May, 2014 [facility] [address] [id number] [address] [place] [address], [place] [address] May, [facility] [address] [id number] [address] [place] [address], [place] [address] May, [facility] [address] [id number] [address] [place] [address], [place] [address] May, [facility] [address] [id number] [address] [place] [address], [place] [address] May, [facility] [address] [id number] [address] [place] [address], [place] [address] May, [facility] [address] [id number] [address] [place] [address], [place] [address] May, [facility] [address] [id number] [address] [place] [address], [place] [address] May, [facility] [address] [id number] [address] [place] [address], [place] [address] May, [facility] [address] [id number] [address] [place] [address], [place] [address] May, [facility] [address] [id number] [address] [place] [address], [place] [address] May, [facility] [address] [id number] [address] [place] [address], [place] [address] May, [facility] [address] [id number] [address] [place] [address], [place] [address] May, [facility] [address] [id number] [address] [place] [address], [place] [address] 05 May, 2014 [facility] [address] [id number] [address] [place] [address], [place] [address] May, [facility] [address] [id number] [address] [place] [address], [place] [address] May, [facility] [address] [id number] [address] [place] [address], [place] [address] May, [facility] [address] [id number] [address] [place] [address], [place] [address] Apr, [facility] [address] [id number] [address] [place] [address], [place] [address] Apr, [facility] [address] [id number] [address] [place] [address], [place] [address] Apr, [facility] [address] [id number] [address] [place] [address], [place] [address] Apr, [facility] [address] [id number] [address] [place] [address], [place] [address] Apr, [facility] [address] [id number] [address] [place] [address], [place] [address] Apr, [facility] [address] [id number] [address] [place] [address], [place] [address] Apr, [facility] [address] [id number] [address] [place] [address], [place] [address] Apr, [facility] [address] [id number] [address] [place] [address], [place] [address] Apr, [facility] [address] [id number] [address] [place] [address], [place] [address] Apr, [facility] [address] [id number] [address] [place] [address], [place] [address] Mar, [facility] [address] [id number] [address] [place] [address], [place] [address] Mar, [facility] [address] [id number] [address] [place] [address], [place] [address] 31 Mar, 2013 [facility] [address] [id number] [address] [place] [address], [place] [address] Mar, 2013 [facility] [address] [id number] [address] [place] [address], [place] [address] 30 Mar, 2014 [facility] [address] [id number] [address] [place] [address], [place] [address] 30 Mar, 2014 [facility] [address] [id number] [address] [place] [address], [place] [address] Mar, [facility] [address] [id number] [address] [place] [address], [place] [address] Mar, [facility] [address] [id number] [address] [place] [address], [place] [address] Mar, [facility] [address] [id number] [address] [place] [address], [place] [address] Mar, [facility] [address] [id number] [address] [place] [address], [place] [address] Mar, [facility] [address] [id number] [address] [place] [address], [place] [address] Mar, [facility] [address] [id number] [address] [place] [address], [place] [address] Mar, [facility] [address] [id number] [address] [place] [address], [place] [address] Mar, [facility] [address] [id number] [address] [place] [address], [place] [address] Mar, [facility] [address] [id number] [address] [place] [address], [place] [address] Mar, [facility] [address] [id number] [address] [place] [address], [place] [address] Mar, [facility] [address] [id number] [address] [place] [id number] Mar, [facility] [address] [id number] [address] [place] [address], [place] [address] Mar, [facility] [address] [id number] [address] [place] [address], [place] [address] Mar, [facility] [address] [id number] [address] [place] [address], [place] [id number] 05 Sep, 2013 [facility] [address] [id number] [address] [place] [address], [place] [address] 05 Sep, 2013 [facility] [address] [id number] [address] [place] [address], [place] [id number] 04 Feb, 2013 [facility] [address] [id number] [address] [place] [address], [place] [id number] 04 Feb, 2013 [facility] [address] [id number] [address] [place] [address], [place] [address] Feb, 2013 [facility] [address] [id number] [address] [place] [address], [place] [address] Feb, 2013 [facility] [address] [id number] [address] [place] [address], [place] [id number] Feb, 2013 [facility] [address] [id number] [address] [place] [address], [place] [address] Feb, 2013 [facility] [address] [id number] [address] [place] [address], [place] [address] Feb, 2013 [facility] [address] [id number] [address] [place] [address], [place] [address] Feb, 2013 [facility] [address] [id number] [address] [place] [address], [place] [address] Jan, [facility] [address] [id number] [address] [place] [address], [place] [address] Jan, [facility] [address] [id number] [address] [place] [address], [place] [address] Jan, [facility] [address] [id number] [facility] [place] [address] Jan, [facility] [address] [id number] [facility] [place] [address] Jan, [facility] [address] [id number] [facility] [place] [address] Jan, [facility] [address] [id number] [address] [place] [address], [place] [address] Jan, [facility] [address] [id number] [address] [place] [address], [place] [address] Jan, [facility] [address] [id number] [address] [place] [address], [place] [address] Jan, [facility] [address] [id number] [address] [place] [address], [place] [address] Jan, [facility] [address] [id number] [address] [place] [address], [place] [address] Jan, [facility] [address] [id number] [address] [place] [address], [place] [address] Jan, [facility] [address] [id number] [address] [place] [address], [place] [address] Dec, [facility] [address] [id number] [address] [place] [address], [place] [address] Dec, [facility] [address] [id number] [address] [place] [address], [place] [address] Dec, [facility] [address] [id number] [address] [place] [address], [place] [address] Dec, [facility] [address] [id number] [address] [place] [address], [place] [address] Dec, [facility] [address] [id number] [address] [place] [address], [place] [address] Dec, [facility] [address] [id number] [address] [place] [address], [place] [address] Dec, [facility] [address] [id number] [address] [place] [address], [place] [address] Dec, 2013 [facility] [address] [id number] [address] [place] [address], [place] [address] Dec, [facility] [address] [id number] [address] [place] [address], [place] [address] Dec, [facility] [address] [id number] [address] [place] [address], [place] [address] Dec, [facility] [address] [id number] [address] [place] [address], [place] [address] Dec, [facility] [address] [id number] [address] [place] [address], [place] [address] Nov, [facility] [address] [id number] [address] [place] [address], [place] [address] Nov, [facility] [address] [id number] [address] [place] [address], [place] [address] Nov, [facility] [address] [id number] [address] [place] [address], [place] [address] Nov, [facility] [address] [id number] [address] [place] [address], [place] [address] Nov, [facility] [address] [id number] [address] [place] [address], [place] [address] Nov, [facility] [address] [id number] [address] [place] [address], [place] [address] Nov, [facility] [address] [id number] [address] [place] [address], [place] [address] Nov, [facility] [address] [id number] [address] [place] [address], [place] [address] Nov, [facility] [address] [id number] [address] [place] [address], [place] [address] Nov, [facility] [address] [id number] [address] [place] [address], [place] [address] Nov, [facility] [address] [id number] [address] [place] [address], [place] [address] Nov, [facility] [address] [id number] [address] [place] [address], [place] [address] Nov, [facility] [address] [id number] [address] [place] [address], [place] [address] Nov, [facility] [address] [id number] [address] [place] [address], [place] [address] October, [facility] [address] [id number] [address] [place] [address], [place] [address] October, [facility] [address] [id number] [address] [place] [address], [place] [address] October, [facility] [address] [id number] [address] [place] [address], [place] [address] October, [facility] [address] [id number] [address] [place] [address], [place] [address] October, [facility] [address] [id number] [address] [place] [address], [place] [address] October, [facility] [address] [id number] [address] [place] [address], [place] [address] October, [facility] [address] [id number] [address] [place] [address], [place] [address] October, [facility] [address] [id number] [address] [place] [address], [place] [address] October, [facility] [address] [id number] [address] [place] [address], [place] [address] October, [facility] [address] [id number] [address] [place] [address], [place] [address] October, [facility] [address] [id number] [address] [place] [address], [place] [address] October, [facility] [address] [id number] [facility] [place] [address] Sep, [facility] [address] [id number] [facility] [place] [address] Sep, [facility] [address] [id number] [facility] [place] [address] Sep, [facility] [address] [id number] [address] [place] [address], [place] [address] Sep, [facility] [address] [id number] [address] [place] [address], [place] [address] Sep, [facility] [address] [id number] [address] [place] [address], [place] [address] Sep, [facility] [address] [id number] [address] [place] [address], [place] [address] Aug, [facility] [address] [id number] [address] [place] [address], [place] [address] Aug, [facility] [address] [id number] [address] [place] [address], [place] [address] Aug, [facility] [address] [id number] [address] [place] [address], [place] [address] Aug, [facility] [address] [id number] [address] [place] [address], [place] [address] Aug, [facility] [address] [id number] [address] [place] [address], [place] [address] Aug, [facility] [address] [id number] [address] [place] [address], [place] [address] Jul, [facility] [address] [id number] [address] [place] [address], [place] [address] Jul, [facility] [address] [id number] [address] [place] [address], [place] [address] Jul, [facility] [address] [id number] [address] [place] [address], [place] [address] Jul, [facility] [address] [id number] [address] [place] [address], [place] [address] Jul, [facility] [address] [id number] [address] [place] [address], [place] [address] Jul, [facility] [address] [id number] [address] [place] [address], [place] [address] Jul, [facility] [address] [id number] [address] [place] [address], [place] [address] Jul, [facility] [address] [id number] [address] [place] [address], [place] [address] Jul, [facility] [address] [id number] [address] [place] [address], [place] [address] Jul, [facility] [address] [id number] [address] [place] [address], [place] [address] Jun, [facility] [address] [id number] [address] [place] [address], [place] [address] Jun, [facility] [address] [id number] [address] [place] [address], [place] [address] Jun, [facility] [address] [id number] [address] [place] [address], [place] [address] Jun, [facility] [address] [id number] [address] [place] [address], [place] [address] Jun, [facility] [address] [id number] [address] [place] [address], [place] [address] Jun, [facility] [address] [id number] [address] [place] [address], [place] [address] Jun, [facility] [address] [id number] [address] [place] [address], [place] [address] Jun, [facility] [address] [id number] [address] [place] [address], [place] [address] May, [facility] [address] [id number] [address] [place] [address], [place] [address] May, [facility] [address] [id number] [address] [place] [address], [place] [address] May, [facility] [address] [id number] [address] [place] [address], [place] [address] May, [facility] [address] [id number] [address] [place] [address], [place] [address] May, [facility] [address] [id number] [address] [place] [address], [place] [address] May, [facility] [address] [id number] [address] [place] [address], [place] [address] May, [facility] [address] [id number] [address] [place] [address], [place] [address] May, [facility] [address] [id number] [address] [place] [address], [place] [address] Apr, [facility] [address] [id number] [address] [place] [address], [place] [address] Apr, [facility] [address] [id number] [address] [place] [address], [place] [address] Apr, [facility] [address] [id number] [address] [place] [address], [place] [address] Apr, [facility] [address] [id number] [address] [place] [address], [place] [address] Apr, [facility] [address] [id number] [address] [place] [address], [place] [address] Apr, [facility] [address] [id number] [address] [place] [address], [place] [address] Mar, [facility] [address] [id number] [address] [place] [address], [place] [address] Mar, [facility] [address] [id number] [address] [place] [address], [place] [address] Mar, [facility] [address] [id number] [address] [place] [address], [place] [address] Mar, [facility] [address] [id number] [address] [place] [address], [place] [address] Mar, [facility] [address] [id number] [address] [place] [address], [place] [address] Mar, [facility] [address] [id number] [address] [place] [address], [place] [address] Mar, [facility] [address] [id number] [address] [place] [address], [place] [address] 30 Feb, 2013 [facility] [address] [id number] [address] [place] [address], [place] [address] 30 Feb, 2013 [facility] [address] [id number] [address] [place] [address], [place] [address] Feb, [facility] [address] [id number] [address] [place] [address], [place] [address] Feb, [facility] [address] [id number] [address] [place] [address], [place] [address] Feb, [facility] [address] [id number] [address] [place] [address], [place] [address] Feb, [facility] [address] [id number] [address] [place] [address], [place] [address] Jan, [facility] [address] [id number] [address] [place] [address], [place] [address] Jan, [facility] [address] [id number] [address] [place] [address], [place] [address] Jan, [facility] [address] [id number] [address] [place] [address], [place] [address] Jan, [facility] [address] [id number] [address] [place] [address], [place] [address] Jan, [facility] [address] [id number] [address] [place] [address], [place] [address] Jan, [facility] [address] [id number] [address] [place] [address], [place] [address] Jan, [facility] [address] [id number] [address] [place] [address], [place] [address] Jan, [facility] [address] [id number] [address] [place] [address], [place] [address] Jan, [facility] [address] [id number] [address] [place] [address], [place] [address] Dec, [facility] [address] [id number] [address] [place] [address], [place] [address] Dec, [facility] [address] [id number] [address] [place] [address], [place] [address] Dec, [facility] [address] [id number] [address] [place] [address], [place] [address] Dec, [facility] [address] [id number] [address] [place] [address], [place] [address] Dec, [facility] [address] [id number] [address] [place] [address], [place] [address] Dec, [facility] [address] [id number] [address] [place] [address], [place] [address] Dec, [facility] [address] [id number] [address] [place] [address], [place] [address] Dec, [facility] [address] [id number] [address] [place] [address], [place] [address] Dec, [facility] [address] [id number] [address] [place] [address], [place] [address] Dec, [facility] [address] [id number] [address] [place] [address], [place] [address] Dec, [facility] [address] [id number] [address] [place] [address], [place] [address] Dec, [facility] [address] [id number] [address] [place] [address], [place] [address] Dec, [facility] [address] [id number] [address] [place] [address], [place] [address] Nov, [facility] [address] [id number] [address] [place] [address], [place] [address] Nov, [facility] [address] [id number] [address] [place] [address], [place] [address] Nov, [facility] [address] [id number] [address] [place] [address], [place] [address] Nov, [facility] [address] [id number] [address] [place] [address], [place] [address] October, [facility] [address] [id number] [address] [place] [address], [place] [address] October, [facility] [address] [id number] [address] [place] [address], [place] [address] October, [facility] [address] [id number] [address] [place] [address], [place] [address] October, [facility] [address] [id number] [address] [place] [address], [place] [address] October, [facility] [address] [id number] [address] [place] [address], [place] [address] October, [facility] [address] [id number] [address] [place] [address], [place] [address] Sep, [facility] [address] [id number] [address] [place] [address], [place] [address] Sep, [facility] [address] [id number] [address] [place] [address], [place] [address] Sep, [facility] [address] [id number] [address] [place] [address], [place] [address] Sep, [facility] [address] [id number] [address] [place] [address], [place] [address] 19 Sep, 2012 [facility] [address] [id number] [address] [place] [address], [place] [address] 16 Sep, 2012 [facility] [address] [id number] [address] [place] [address], [place] [address] Sep, [facility] [address] [id number] [address] [place] [address], [place] [address] Sep, [facility] [address] [id number] [address] [place] [address], [place] [address] Sep, [facility] [address] [id number] [address] [place] [address], [place] [address] Sep, [facility] [address] [id number] [address] [place] [address], [place] [address] Sep, [facility] [address] [id number] [address] [place] [address], [place] [address] Aug, [facility] [address] [id number] [address] [place] [address], [place] [address] Aug, [facility] [address] [id number] [address] [place] [address], [place] [address] 25 Aug, 2012 [facility] [address] [id number] [address] [place] [address], [place] [address] Aug, [facility] [address] [id number] [address] [place] [address], [place] [address] 19 Aug, 2012 [facility] [address] [id number] [address] [place] [address], [place] [address] 18 Aug, 2012 [facility] [address] [id number] [address] [place] [address], [place] [address] 17 Aug, 2012 [facility] [address] [id number] [address] [place] [address], [place] [address] 15 Aug, 2012 [facility] [address] [id number] [address] [place] [address], [place] [address] 15 Aug, 2012 [facility] [address] [id number] [address] [place] [address], [place] [address] Aug, [facility] [address] [id number] [address] [place] [address], [place] [address] Aug, [facility] [address] [id number] [address] [place] [address], [place] [address] Aug, [facility] [address] [id number] [address] [place] [address], [place] [address] Jul, [facility] [address] [id number] [address] [place] [address], [place] [address] Jul, [facility] [address] [id number] [address] [place] [address], [place] [address] Jul, [facility] [address] [id number] [address] [place] [address], [place] [address] Jul, [facility] [address] [id number] [address] [place] [address], [place] [address] Jul, [facility] [address] [id number] [address] [place] [address], [place] [address] Jul, [facility] [address] [id number] [address] [place] [address], [place] [address] Jul, [facility] [address] [id number] [address] [place] [address], [place] [address] Jul, [facility] [address] [id number] [address] [place] [address], [place] [address] Jul, [facility] [address] [id number] [address] [place] [address], [place] [address] Jul, [facility] [address] [id number] [address] [place] [address], [place] [address] May, [facility] [address] [id number] [place] [id number] May, [facility] [address] [id number] [address] [address] May, [facility] [address] [id number] [address] [place] [address] May, [facility] [address] [id number] [address] [place] [address] May, [facility] [address] [id number] [address] [place] [address] Apr, [facility] [address] [id number] [place] [id number] Apr, [facility] [address] [id number] [address] [place] [address] Apr, [facility] [address] [id number] [address] [place] [address] Mar, [facility] [address] [id number] [place] [id number] Mar, [facility] [address] [id number] [address] [place] [address] Mar, [facility] [address] [id number] [place] [id number] Feb, [facility] [address] [id number] [address] [place] [id number] Feb, [facility] [address] [id number] [address] [place] [address] Feb, [facility] [address] [id number] [place] [id number] Feb, [facility] [address] [id number] [place] [id number] Feb, [facility] [address] [id number] [place] [id number] Jan, [facility] [address] [id number] [address] [place] [id number] Jan, [facility] [address] [id number] [place] [id number] Jan, [facility] [address] [id number] [place] [id number] Jan, [facility] [address] [id number] [place] [id number] Jan, [facility] [address] [facility] [id number] [address] [address] Jan, [facility] [address] [facility] [id number] [address] [place] [id number] Jan, [facility] [address] [facility] [id number] [address] [place] [id number] Aug, [facility] [address] [id number] [place] [id number] Aug, [facility] [address] [facility] [id number] [address] [place] [id number] Jul, [facility] [address] [facility] [id number] [address] [place] [id number] Jul, [facility] [address] [facility] [id number] [address] [place] [id number] Jul, [facility] [address] [id number] [place] [id number] Jul, 2011 [facility] [address] [facility] [id number] [address] [place] [id number] Jul, [facility] [address] [id number] [place] [id number] Jul, [facility] [address] [facility] [id number] [address] [place] [id number] Jul, [facility] [address] [id number] [place] [id number] Jul, [facility] [address] [id number] [place] [id number] Jul, [facility] [address] [id number] [place] [id number] Jul, [facility] [address] [facility] [id number] [address] [place] [id number] May, [facility] [address] [id number] [address] [place] [id number] May, [facility] [address] [id number] [address] [place] [id number] May, [facility] [address] [id number] [address] [place] [id number] Apr, [facility] [address] [id number] [address] [place] [id number] Jan, [facility] [address] [id number] [address] [place] [id number] Jan, [facility] [address] [id number] [address] [place] [id number] Dec, [facility] [address] [id number] [address] [place] [id number] Dec, [facility] [address] [id number] [address] [place] [id number] May, [facility] [address] [id number] [address] [place] [id number] Mar, [facility] [address] [id number] [address] [place] [id number] Mar, [facility] [address] [id number] [address] [place] [id number] 14 Jan, 2009 IMMUNIZATIONS No Known Immunizations [...]
--- OUTSIDE RECORDS SUMMARY | 2020-01-28 13:05 | XMS REPORT ---
Author Author Heydi Candelario Doctor Organization [facility] Address Unknown Phone Unavailable Care Team Providers Care Pension Manager Name Role Phone Migration, Doctor Unavailable Unavailable PROBLEMS Type Condition ICD9-CM Code [id number] Code Onset Dates Condition S tatus SNOMED Code Problem Chronic pain syndrome G89.4 Active 949593332 Problem Sore throat J02.9 Active 27920397 3 Problem Choriocarcinoma C58 Active 1881 64824 Problem halfway current use of anticoagulant Z79.01 Active 253310275 Problem History of venous thromboembolism V12.51 Active 449159877 Problem Cellulitis of unspecified part of limb L03.119 Active 119819036 Problem Gastroesophageal reflux disease without esophagitis K21.9 Active 563894329 Problem History of pulmonary embolism Z86.711 Active 373341249 Problem Pseudotumor cerebri G93.2 Active 37616979 Problem History of DVT (deep vein thrombosis) Z86.718 Active 494292429 ALLERGIES No Information ENCOUNTERS Encounter Location Date Diagnosis [place] [address] [facility] [id number] [address] [place] [address] Apr, 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 [place] [address] [facility] [id number] [address] [place] [address] Apr, 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 [place] [address] [facility] [id number] [address] [place] [address] Apr, Cellulitis of unspecified pa rt of limb L03.119 ; Allergic contact dermatitis due to adhesives L23.1 and Chronic pain syndrome G89.4 [facility] [address] [facility] [id number] [address] [place] [address] Apr, [place] [address] [facility] [id number] [address] [place] [address] Apr, halfway current use of ant icoagulant Z79.01 ; Cellulitis of unspecified part of limb L03.119 ; Chronic pain syndrome G89.4 and Anxiety F41.9 [place] [address] [place] [id number] [address] [place] [address] 16 Apr, 2015 [place] [address] [place] [id number] [place] [address] Apr, [place] [address] [address] Mar, [place] [address] [place] [id number] [place] [address] Mar, [place] [address] [address] Mar, Sore throat J02.9 ; Gastroes ophageal reflux disease without esophagitis K21.9 ; Pseudotumor cerebri G93.2 ; Chronic pain syndrome G89.4 ; Choriocarcinoma C58 ; History of pulmonary embolism Z86.711 ; History of DVT (deep vein thrombosis) Z86.718 ; Anxiety F41.9 and Tachycardia R00.0 [place] [address] [address] Feb, Anxiety 300.00 and Chronic p ain 338.29 [place] [address] [place] [id number] [address] [place] [address] Feb, [place] [id number] [place] [address] Feb, [place] [address] [place] [id number] [place] [address] Jan, halfway current use of ant icoagulant therapy V58.61 and Dysuria 788.1 [place] [address] [place] [id number] [address] [place] [address] Jan, Dysuria 788.1 [place] [address] [place] [id number] [place] [address] Jan, Anxiety 300.00 and Chronic p ain 338.29 [place] [address] [address] Jan, [facility] [address] [address] Jan, [place] [address] [address] Jan, [place] [address] [address] Dec, Weakness 780.79 [place] [address] [address] Dec, 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.61 [place] [address] [address] Dec, Palpitations 785.1 ; Tremor 781.0 ; Weakness 780.79 ; halfway current use of anticoagulant therapy V58.61 and Yeast vaginitis 112.1 [place] [address] [address] Dec, [place] [address] [address] Dec, Cervicalgia 723.1 ; Tachycar yoseph 785.0 ; Pseudotumor cerebri 348.2 and History of venous thromboembolism V12.51 [place] [address] [place] [id number] [address] [place] [address] Nov, [place] [address] [address] Nov, [place] [address] [address] Nov, Tachycardia 785.0 ; Pseudotu mor cerebri 348.2 ; Anxiety 300.00 and History of venous thromboembolism V12.51 [facility] [address] [id number] [address] [place] [address], [place] [address] Nov, [facility] [address] [id number] [address] [place] [address], [place] [address] 18 Nov, 2014 [facility] [address] [id number] [address] [place] [address], [place] [address] 16 Nov, 2014 [facility] [address] [id number] [address] [place] [address], [place] [address] Nov, [facility] [address] [id number] [address] [place] [address], [place] [address] Nov, [facility] [address] [id number] [address] [place] [address], [place] [address] Nov, [facility] [address] [id number] [address] [place] [address], [place] [address] Nov, [facility] [address] [id number] [address] [place] [address] October, [facility] [address] [id number] [address] [place] [address] October, [facility] [address] [id number] [address] [place] [address] October, Pain in thoracic spine 724.1 and Tachycardia 785.0 [facility] [address] [id number] [address] [place] [address] October, [facility] [address] [id number] [address] [place] [address] October, [facility] [address] [id number] [address] [place] [address] Sep, [facility] [address] [id number] [address] [place] [address] Sep, [facility] [address] [id number] [address] [place] [address] Aug, [facility] [address] [id number] [address] [place] [address], [place] [address] Aug, [facility] [address] [id number] [address] [place] [address], [place] [address] Aug, [facility] [address] [id number] [address] [place] [address], [place] [address] 17 Aug, 2014 [facility] [address] [id number] [address] [place] [address], [place] [address] Aug, [facility] [address] [id number] [address] [place] [address], [place] [address] 16 Aug, 2014 [facility] [address] [id number] [address] [place] [address], [place] [address] Aug, [facility] [address] [id number] [address] [place] [address], [place] [address] Aug, [facility] [address] [id number] [address] [place] [address], [place] [address] Aug, 2014 [facility] [address] [id number] [address] [place] [address], [place] [address] Aug, [facility] [address] [id number] [address] [place] [address], [place] [address] Aug, [facility] [address] [id number] [address] [place] [address], [place] [address] Aug, [facility] [address] [id number] [address] [place] [address], [place] [address] Jul, 2014 [facility] [address] [id number] [address] [place] [address], [place] [address] Jul, 2014 [facility] [address] [id number] [address] [place] [address], [place] [address] Jul, 2014 [facility] [address] [id number] [address] [place] [address], [place] [address] Jul, 2014 [facility] [address] [id number] [address] [place] [address], [place] [address] b, 2014 [facility] [address] [id number] [address] [place] [address], [place] [address] 23 Jul, 2014 [facility] [address] [id number] [address] [place] [address], [place] [address] 23 Jul, 2014 [facility] [address] [id number] [address] [place] [address], [place] [address] 23 Jul, 2014 [facility] [address] [id number] [address] [place] [address], [place] [address] 20 Jul, 2014 [facility] [address] [id number] [address] [place] [address], [place] [address] 20 Jul, 2014 [facility] [address] [id number] [address] [place] [address], [place] [address] 19 Jul, 2014 [facility] [address] [id number] [address] [place] [address], [place] [address] 19 Jul, 2014 [facility] [address] [id number] [address] [place] [address], [place] [address] 17 Jul, 2014 [facility] [address] [id number] [address] [place] [address], [place] [address] 17 Jul, 2014 [facility] [address] [id number] [address] [place] [address], [place] [address] 16 Jul, 2014 [facility] [address] [id number] [address] [place] [address], [place] [address] 16 Jul, 2014 [facility] [address] [id number] [address] [place] [address], [place] [address] 16 Jul, 2014 [facility] [address] [id number] [address] [place] [address], [place] [address] 16 Jul, 2014 [facility] [address] [id number] [address] [place] [address], [place] [address] 13 Jul, 2014 [facility] [address] [id number] [address] [place] [address], [place] [address] Jul, 2014 [facility] [address] [id number] [address] [place] [address], [place] [address] Jul, 2014 [facility] [address] [id number] [address] [place] [address], [place] [address] Jul, 2014 [facility] [address] [id number] [address] [place] [address], [place] [address] Jul, 2014 [facility] [address] [id number] [address] [place] [address], [place] [address] Jul, 2014 [facility] [address] [id number] [address] [place] [address], [place] [address] Jul, [facility] [address] [id number] [address] [place] [address], [place] [address] Jul, [facility] [address] [id number] [address] [place] [address], [place] [address] Jul, [facility] [address] [id number] [address] [place] [address], [place] [address] Jul, [facility] [address] [id number] [address] [place] [address], [place] [address] Jul, [facility] [address] [id number] [address] [place] [address], [place] [address] Jul, [facility] [address] [id number] [address] [place] [address], [place] [address] Jun, [facility] [address] [id number] [address] [place] [address], [place] [address] Jun, [facility] [address] [id number] [address] [place] [address], [place] [address] Jun, [facility] [address] [id number] [address] [place] [address], [place] [address] Jun, [facility] [address] [id number] [address] [place] [address], [place] [address] Jun, [facility] [address] [id number] [address] [place] [address], [place] [address] Jun, [facility] [address] [id number] [address] [place] [address], [place] [address] Jun, [facility] [address] [id number] [address] [place] [address], [place] [address] Jun, [facility] [address] [id number] [address] [place] [address], [place] [address] Jun, [facility] [address] [id number] [address] [place] [address], [place] [address] Jun, [facility] [address] [id number] [address] [place] [address], [place] [address] Jun, [facility] [address] [id number] [address] [place] [address], [place] [address] Jun, [facility] [address] [id number] [address] [place] [address], [place] [address] Jun, [facility] [address] [id number] [address] [place] [address], [place] [address] Jun, [facility] [address] [id number] [address] [place] [address], [place] [address] Jun, [facility] [address] [id number] [address] [place] [address], [place] [address] Jun, [facility] [address] [id number] [address] [place] [address], [place] [address] Jun, [facility] [address] [id number] [address] [place] [address], [place] [address] Jun, [facility] [address] [id number] [address] [place] [address], [place] [address] Jun, [facility] [address] [id number] [address] [place] [address], [place] [address] Jun, [facility] [address] [id number] [address] [place] [address], [place] [address] May, [facility] [address] [id number] [address] [place] [address], [place] [address] May, [facility] [address] [id number] [address] [place] [address], [place] [address] May, [facility] [address] [id number] [address] [place] [address], [place] [address] May, [facility] [address] [id number] [address] [place] [address], [place] [address] May, [facility] [address] [id number] [address] [place] [address], [place] [address] May, [facility] [address] [id number] [address] [place] [address], [place] [address] May, [facility] [address] [id number] [address] [place] [address], [place] [address] May, [facility] [address] [id number] [address] [place] [address], [place] [address] May, [facility] [address] [id number] [address] [place] [address], [place] [address] May, [facility] [address] [id number] [address] [place] [address], [place] [address] May, [facility] [address] [id number] [address] [place] [address], [place] [address] 18 May, 2014 [facility] [address] [id number] [address] [place] [address], [place] [address] 18 May, 2014 [facility] [address] [id number] [address] [place] [address], [place] [address] 17 May, 2014 [facility] [address] [id number] [address] [place] [address], [place] [address] 16 May, 2014 [facility] [address] [id number] [address] [place] [address], [place] [address] 16 May, 2014 [facility] [address] [id number] [address] [place] [address], [place] [address] 15 May, 2014 [facility] [address] [id number] [address] [place] [address], [place] [address] 15 May, 2014 [facility] [address] [id number] [address] [place] [address], [place] [address] May, [facility] [address] [id number] [address] [place] [address], [place] [address] May, [facility] [address] [id number] [address] [place] [address], [place] [address] May, [facility] [address] [id number] [address] [place] [address], [place] [address] May, [facility] [address] [id number] [address] [place] [address], [place] [address] May, [facility] [address] [id number] [address] [place] [address], [place] [address] May, [facility] [address] [id number] [address] [place] [address], [place] [address] May, [facility] [address] [id number] [address] [place] [address], [place] [address] May, [facility] [address] [id number] [address] [place] [address], [place] [address] May, [facility] [address] [id number] [address] [place] [address], [place] [address] May, [facility] [address] [id number] [address] [place] [address], [place] [address] May, [facility] [address] [id number] [address] [place] [address], [place] [address] May, [facility] [address] [id number] [address] [place] [address], [place] [address] May, [facility] [address] [id number] [address] [place] [address], [place] [address] May, [facility] [address] [id number] [address] [place] [address], [place] [address] May, [facility] [address] [id number] [address] [place] [address], [place] [address] May, [facility] [address] [id number] [address] [place] [address], [place] [address] Apr, [facility] [address] [id number] [address] [place] [address], [place] [address] Apr, [facility] [address] [id number] [address] [place] [address], [place] [address] Apr, [facility] [address] [id number] [address] [place] [address], [place] [address] Apr, [facility] [address] [id number] [address] [place] [address], [place] [address] Apr, [facility] [address] [id number] [address] [place] [address], [place] [address] Apr, [facility] [address] [id number] [address] [place] [address], [place] [address] Apr, [facility] [address] [id number] [address] [place] [address], [place] [address] Apr, [facility] [address] [id number] [address] [place] [address], [place] [address] Apr, [facility] [address] [id number] [address] [place] [address], [place] [address] Apr, [facility] [address] [id number] [address] [place] [address], [place] [address] Mar, [facility] [address] [id number] [address] [place] [address], [place] [address] Mar, [facility] [address] [id number] [address] [place] [address], [place] [address] Mar, [facility] [address] [id number] [address] [place] [address], [place] [address] 31 Mar, 2013 [facility] [address] [id number] [address] [place] [address], [place] [address] 30 Mar, 2013 [facility] [address] [id number] [address] [place] [address], [place] [address] 30 Mar, 2014 [facility] [address] [id number] [address] [place] [address], [place] [address] Mar, 2013 [facility] [address] [id number] [address] [place] [address], [place] [address] 17 Mar, 2013 [facility] [address] [id number] [address] [place] [address], [place] [address] 15 Mar, 2014 [facility] [address] [id number] [address] [place] [id number] 15 Mar, 2014 [facility] [address] [id number] [address] [place] [address], [place] [address] 15 Mar, 2014 [facility] [address] [id number] [address] [place] [id number] Mar, [facility] [address] [id number] [address] [place] [address], [place] [address] Mar, [facility] [address] [id number] [address] [place] [id number] Mar, [facility] [address] [id number] [address] [place] [id number] Mar, [facility] [address] [id number] [address] [place] [id number] Mar, 2013 [facility] [address] [id number] [address] [place] [address], [place] [address] Mar, [facility] [address] [id number] [address] [place] [id number] Mar, [facility] [address] [id number] [address] [place] [id number] Mar, 2013 [facility] [address] [id number] [address] [place] [address], [place] [address] 02 Mar, 2013 [facility] [address] [id number] [address] [place] [address], [place] [address] 05 Sep, 2013 [facility] [address] [id number] [address] [place] [address], [place] [address] 05 Sep, 2013 [facility] [address] [id number] [address] [place] [address], [place] [address] 04 Sep, 2013 [facility] [address] [id number] [address] [place] [address], [place] [address] 04 Sep, 2013 [facility] [address] [id number] [address] [place] [address], [place] [address] 03 Feb, 2013 [facility] [address] [id number] [address] [place] [address], [place] [address] Feb, 2013 [facility] [address] [id number] [address] [place] [address], [place] [address] Feb, 2013 [facility] [address] [id number] [address] [place] [address], [place] [address] Feb, 2013 [facility] [address] [id number] [address] [place] [address], [place] [address] Feb, 2013 [facility] [address] [id number] [address] [place] [address], [place] [address] Feb, 2013 [facility] [address] [id number] [address] [place] [address], [place] [address] Jan, [facility] [address] [id number] [address] [place] [address], [place] [address] Jan, [facility] [address] [id number] [address] [place] [address], [place] [address] Jan, [facility] [address] [id number] [address] [place] [address], [place] [address] Jan, [facility] [address] [id number] [address] [place] [address], [place] [address] Jan, [facility] [address] [id number] [address] [place] [address], [place] [address] Jan, [facility] [address] [id number] [address] [place] [address], [place] [address] Jan, [facility] [address] [id number] [address] [place] [address], [place] [address] Jan, [facility] [address] [id number] [address] [place] [address], [place] [address] Jan, [facility] [address] [id number] [address] [place] [address], [place] [address] Jan, [facility] [address] [id number] [address] [place] [address], [place] [address] Jan, [facility] [address] [id number] [address] [place] [address], [place] [address] Jan, [facility] [address] [id number] [address] [place] [address], [place] [address] Dec, [facility] [address] [id number] [address] [place] [address], [place] [address] Dec, [facility] [address] [id number] [address] [place] [address], [place] [address] Dec, [facility] [address] [id number] [address] [place] [address], [place] [address] Dec, [facility] [address] [id number] [address] [place] [address], [place] [address] Dec, [facility] [address] [id number] [address] [place] [address], [place] [address] Dec, [facility] [address] [id number] [address] [place] [address], [place] [address] Dec, [facility] [address] [id number] [address] [place] [address], [place] [address] Dec, [facility] [address] [id number] [address] [place] [address], [place] [address] Dec, [facility] [address] [id number] [address] [place] [address], [place] [address] Dec, [facility] [address] [id number] [address] [place] [address], [place] [address] Dec, [facility] [address] [id number] [address] [place] [address], [place] [address] Dec, [facility] [address] [id number] [address] [place] [address], [place] [address] Nov, [facility] [address] [id number] [address] [place] [address], [place] [address] Nov, [facility] [address] [id number] [address] [place] [address], [place] [address] Nov, [facility] [address] [id number] [address] [place] [address], [place] [address] Nov, [facility] [address] [id number] [address] [place] [address], [place] [address] Nov, [facility] [address] [id number] [address] [place] [address], [place] [address] Nov, [facility] [address] [id number] [address] [place] [address], [place] [address] Nov, [facility] [address] [id number] [address] [place] [address], [place] [address] Nov, [facility] [address] [id number] [address] [place] [address] Nov, [facility] [address] [id number] [address] [place] [address], [place] [address] Nov, [facility] [address] [id number] [address] [place] [address], [place] [address] Nov, [facility] [address] [id number] [address] [place] [address], [place] [address] Nov, [facility] [address] [id number] [address] [place] [address], [place] [address] Nov, [facility] [address] [id number] [address] [place] [address], [place] [address] Nov, [facility] [address] [id number] [address] [place] [address], [place] [address] October, [facility] [address] [id number] [address] [place] [address], [place] [address] October, [facility] [address] [id number] [address] [place] [address], [place] [address] October, [facility] [address] [id number] [address] [place] [address], [place] [address] October, [facility] [address] [id number] [address] [place] [address], [place] [address] October, [facility] [address] [id number] [address] [place] [address], [place] [address] October, [facility] [address] [id number] [address] [place] [address], [place] [address] October, [facility] [address] [id number] [address] [place] [address], [place] [address] October, [facility] [address] [id number] [address] [place] [address], [place] [address] October, [facility] [address] [id number] [address] [place] [address], [place] [address] October, [facility] [address] [id number] [address] [place] [address], [place] [address] October, [facility] [address] [id number] [address] [place] [address], [place] [address] October, [facility] [address] [id number] [address] [place] [address], [place] [address] Sep, [facility] [address] [id number] [address] [place] [address], [place] [address] Sep, [facility] [address] [id number] [facility] [address] Sep, [facility] [address] [id number] [address] [place] [address], [place] [address] Sep, [facility] [address] [id number] [address] [place] [address], [place] [address] Sep, [facility] [address] [id number] [address] [place] [address], [place] [address] Sep, [facility] [address] [id number] [address] [place] [address], [place] [address] Aug, [facility] [address] [id number] [address] [place] [address], [place] [address] Aug, [facility] [address] [id number] [address] [place] [address], [place] [address] Aug, [facility] [address] [id number] [address] [place] [address], [place] [address] Aug, [facility] [address] [id number] [address] [place] [address], [place] [address] Aug, [facility] [address] [id number] [address] [place] [address], [place] [address] Aug, [facility] [address] [id number] [address] [place] [address], [place] [address] Jul, [facility] [address] [id number] [address] [place] [address], [place] [address] Jul, [facility] [address] [id number] [address] [place] [address], [place] [address] Jul, [facility] [address] [id number] [address] [place] [address], [place] [address] Jul, [facility] [address] [id number] [address] [place] [address], [place] [address] Jul, [facility] [address] [id number] [address] [place] [address], [place] [address] 13 Jul, 2013 [facility] [address] [id number] [address] [place] [address], [place] [address] Jul, [facility] [address] [id number] [address] [place] [address], [place] [address] Jul, [facility] [address] [id number] [address] [place] [address], [place] [address] Jul, [facility] [address] [id number] [address] [place] [address], [place] [address] Jul, [facility] [address] [id number] [address] [place] [address], [place] [address] Jun, [facility] [address] [id number] [address] [place] [address], [place] [address] Jun, [facility] [address] [id number] [address] [place] [address], [place] [address] Jun, [facility] [address] [id number] [address] [place] [address], [place] [address] Jun, [facility] [address] [id number] [address] [place] [address], [place] [address] Jun, [facility] [address] [id number] [address] [place] [address], [place] [address] Jun, [facility] [address] [id number] [address] [place] [address], [place] [address] Jun, [facility] [address] [id number] [address] [place] [address], [place] [address] Jun, [facility] [address] [id number] [address] [place] [address], [place] [address] May, [facility] [address] [id number] [address] [place] [address], [place] [address] May, [facility] [address] [id number] [address] [place] [address] [address] May, [facility] [address] [id number] [address] [place] [address], [place] [address] May, [facility] [address] [id number] [address] [place] [address], [place] [address] May, [facility] [address] [id number] [address] [place] [address], [place] [address] May, [facility] [address] [id number] [address] [place] [address], [place] [address] May, [facility] [address] [id number] [address] [place] [address], [place] [address] May, [facility] [address] [id number] [address] [place] [address], [place] [address] Apr, [facility] [address] [id number] [address] [place] [address], [place] [address] Apr, [facility] [address] [id number] [address] [place] [address] Apr, [facility] [address] [id number] [address] [place] [address] Apr, [facility] [address] [id number] [address] [place] [address] Apr, [facility] [address] [id number] [address] [place] [address] Apr, [facility] [address] [id number] [address] [place] [address] Mar, [facility] [address] [id number] [address] [place] [address] Mar, [facility] [address] [id number] [address] [place] [address] Mar, [facility] [address] [id number] [address] [place] [address] Mar, [facility] [address] [id number] [address] [place] [address], [place] [address] Mar, [facility] [address] [id number] [address] [place] [address], [place] [address] Mar, [facility] [address] [id number] [address] [place] [address], [place] [address] Mar, [facility] [address] [id number] [address] [place] [address], [place] [address] 30 Feb, 2013 [facility] [address] [id number] [address] [place] [address], [place] [address] 30 Feb, 2013 [facility] [address] [id number] [address] [place] [address], [place] [address] 27 Feb, 2013 [facility] [address] [id number] [address] [place] [address], [place] [address] Feb, [facility] [address] [id number] [address] [place] [address], [place] [address] Feb, [facility] [address] [id number] [address] [place] [address], [place] [address] Feb, [facility] [address] [id number] [address] [place] [address], [place] [address] Jan, [facility] [address] [id number] [address] [place] [address], [place] [address] Jan, [facility] [address] [id number] [address] [place] [address], [place] [address] Jan, [facility] [address] [id number] [address] [place] [address], [place] [address] Jan, [facility] [address] [id number] [address] [place] [address], [place] [address] Jan, [facility] [address] [id number] [address] [place] [address], [place] [address] Jan, [facility] [address] [id number] [address] [place] [address], [place] [address] Jan, [facility] [address] [id number] [address] [place] [address], [place] [address] Jan, [facility] [address] [id number] [address] [place] [address], [place] [address] Jan, [facility] [address] [id number] [address] [place] [address], [place] [address] Dec, [facility] [address] [id number] [address] [place] [address], [place] [address] Dec, [facility] [address] [id number] [address] [place] [address], [place] [address] Dec, [facility] [address] [id number] [address] [place] [address], [place] [address] Dec, [facility] [address] [id number] [address] [place] [address], [place] [address] Dec, [facility] [address] [id number] [address] [place] [address], [place] [address] Dec, [facility] [address] [id number] [address] [place] [address], [place] [address] Dec, [facility] [address] [id number] [address] [place] [address], [place] [address] Dec, [facility] [address] [id number] [address] [place] [address], [place] [address] Dec, [facility] [address] [id number] [address] [place] [address], [place] [address] Dec, [facility] [address] [id number] [address] [place] [address], [place] [address] Dec, [facility] [address] [id number] [address] [place] [address], [place] [address] Dec, [facility] [address] [id number] [address] [place] [address], [place] [address] Dec, [facility] [address] [id number] [address] [place] [address], [place] [address] Nov, [facility] [address] [id number] [address] [place] [address], [place] [address] Nov, [facility] [address] [id number] [address] [place] [address], [place] [address] Nov, [facility] [address] [id number] [address] [place] [address], [place] [address] Nov, [facility] [address] [id number] [address] [place] [address], [place] [address] October, [facility] [address] [id number] [address] [place] [address], [place] [address] October, [facility] [address] [id number] [address] [place] [address], [place] [address] October, [facility] [address] [id number] [address] [place] [address], [place] [address] October, [facility] [address] [id number] [address] [place] [address], [place] [address] October, [facility] [address] [id number] [address] [place] [address], [place] [address] October, [facility] [address] [id number] [address] [place] [address], [place] [address] 30 Sep, 2012 [facility] [address] [id number] [address] [place] [address], [place] [address] 29 Sep, 2012 [facility] [address] [id number] [address] [place] [address], [place] [address] 27 Sep, 2012 [facility] [address] [id number] [address] [place] [address], [place] [address] 23 Sep, 2012 [facility] [address] [id number] [address] [place] [address], [place] [address] Sep, [facility] [address] [id number] [address] [place] [address], [place] [address] 16 Sep, 2012 [facility] [address] [id number] [facility] [place] [address] 12 Sep, 2012 [facility] [address] [id number] [address] [place] [address], [place] [address] Sep, [facility] [address] [id number] [address] [place] [address], [place] [address] Sep, [facility] [address] [id number] [address] [place] [address], [place] [address] Sep, [facility] [address] [id number] [address] [place] [address], [place] [address] Sep, [facility] [address] [id number] [address] [place] [address], [place] [address] Aug, [facility] [address] [id number] [address] [place] [address], [place] [address] Aug, [facility] [address] [id number] [address] [place] [address], [place] [address] 25 Aug, 2012 [facility] [address] [id number] [address] [place] [address], [place] [address] 21 Aug, 2012 [facility] [address] [id number] [address] [place] [address], [place] [address] 19 Aug, 2012 [facility] [address] [id number] [address] [place] [address], [place] [address] 18 Aug, 2012 [facility] [address] [id number] [address] [place] [address], [place] [address] 17 Aug, 2012 [facility] [address] [id number] [address] [place] [address], [place] [address] 15 Aug, 2012 [facility] [address] [id number] [address] [place] [address], [place] [address] 15 Aug, 2012 [facility] [address] [id number] [address] [place] [address], [place] [address] 11 Aug, 2012 [facility] [address] [id number] [address] [place] [address], [place] [address] Aug, [facility] [address] [id number] [address] [place] [address], [place] [address] Aug, [facility] [address] [id number] [address] [place] [address], [place] [address] Jul, [facility] [address] [id number] [address] [place] [address], [place] [address] Jul, [facility] [address] [id number] [address] [place] [address], [place] [address] Jul, [facility] [address] [id number] [address] [place] [address], [place] [address] Jul, [facility] [address] [id number] [address] [place] [address], [place] [address] Jul, [facility] [address] [id number] [address] [place] [address], [place] [address] Jul, [facility] [address] [id number] [address] [place] [address], [place] [address] Jul, [facility] [address] [id number] [address] [place] [address], [place] [address] Jul, [facility] [address] [id number] [address] [place] [address], [place] [address] Jul, [facility] [address] [id number] [address] [place] [address] Jul, [facility] [address] [id number] [address] [place] [address] May, [facility] [address] [id number] [place] [id number] May, [facility] [address] [id number] [address] [place] [address] May, [facility] [address] [id number] [address] [place] [address], [place] [address] 14 May, 2012 [facility] [address] [id number] [address] [place] [address], [place] [address] May, [facility] [address] [id number] [address] [place] [address], [place] [address] Apr, [facility] [address] [id number] [place] [id number] Apr, [facility] [address] [facility] [id number] [address] [place] [address], [place] [address] Apr, [facility] [address] [facility] [id number] [address] [place] [address], [place] [address] Mar, [facility] [address] [id number] [place] [id number] Mar, [facility] [address] [facility] [id number] [address] [place] [address], [place] [address] Mar, [facility] [address] [id number] [place] [id number] Feb, [facility] [address] [facility] [id number] [address] [place] [address], [place] [address] Feb, [facility] [address] [facility] [id number] [address] [place] [address], [place] [address] Feb, [facility] [address] [id number] [place] [id number] Feb, [facility] [address] [id number] [place] [id number] Feb, [facility] [address] [id number] [place] [id number] Jan, [facility] [address] [id number] [address] [place] [address], [place] [address] Jan, [facility] [address] [id number] [place] [id number] Jan, [facility] [address] [id number] [place] [id number] Jan, [facility] [address] [id number] [place] [id number] Jan, [facility] [address] [id number] [address] [place] [address], [place] [address] Jan, [facility] [address] [facility] [id number] [address] [place] [address], [place] [address] Jan, [facility] [address] [facility] [id number] [address] [place] [address], [place] [address] Aug, [facility] [address] [facility] [id number] [place] [id number] Aug, [facility] [address] [facility] [id number] [address] [place] [address], [place] [address] Jul, [facility] [address] [facility] [id number] [address] [place] [address], [place] [address] Jul, [facility] [address] [facility] [id number] [address] [place] [address], [place] [address] Jul, [facility] [address] [facility] [id number] [place] [id number] Jul, [facility] [address] [facility] [id number] [address] [place] [address], [place] [address] Jul, [facility] [address] [facility] [id number] [place] [id number] Jul, [facility] [address] [facility] [id number] [address] [place] [address], [place] [address] Jul, [facility] [address] [id number] [place] [id number] Jul, [facility] [address] [id number] [place] [id number] Jul, [facility] [address] [id number] [place] [id number] Jul, [facility] [address] [facility] [id number] [address] [place] [address], [place] [address] May, [facility] [address] [facility] [id number] [address] [place] [address], [place] [address] May, [facility] [address] [id number] [address] [place] [phone] May, [facility] [address] [id number] [address] [place] [id number] Apr, [facility] [address] [id number] [address] [place] [phone] Jan, [facility] [address] [id number] [address] [place] [phone] Jan, [facility] [address] [id number] [address] [place] [id number] Dec, [facility] [address] [id number] [address] [place] [phone] Dec, [facility] [address] [id number] [address] [place] [id number] 16 May, 2009 [facility] [address] [id number] [address] [place] [phone] Mar, [facility] [address] [id number] [address] [place] [phone] Mar, [facility] [address] [id number] [address] [place] [phone] Jan, IMMUNIZATIONS No Known Immunizations SOCIAL HISTORY Never Assessed REASON FOR VISIT [facility] [place] PLAN OF CARE VITAL SIGNS [...]
--- OUTSIDE RECORDS SUMMARY | 2020-01-28 13:06 | XMS REPORT ---
Author Author Heydi Candelario Doctor Organization [facility] Address Unknown Phone Unavailable Care Team Providers Care Nurse Transplant Name Role Phone Migration, Doctor Unavailable Unavailable PROBLEMS Type Condition ICD9-CM Code ONS68-KI Code Onset Dates Condition S tatus SNOMED Code Problem Chronic pain syndrome G89.4 Active 323713444 Problem Sore throat J02.9 Active 05347144 3 Problem Choriocarcinoma C58 Active 1881 19513 Problem penitentiary current use of anticoagulant Z79.01 Active 859883599 Problem History of venous thromboembolism V12.51 Active 790982469 Problem Cellulitis of unspecified part of limb L03.119 Active 924703821 Problem Gastroesophageal reflux disease without esophagitis K21.9 Active 069512295 Problem History of pulmonary embolism Z86.711 Active 569206233 Problem Pseudotumor cerebri G93.2 Active 72551521 Problem History of DVT (deep vein thrombosis) Z86.718 Active 952484134 ALLERGIES No Information ENCOUNTERS Encounter Location Date Diagnosis [place] [address] [place] [id number] [address] [place] [address] 14 Nov, 2019 Encounter for screening labo ratory testing for COVID-19 virus Z11.59 [place] [address] [place] [id number] [address] [place] [address] Apr, watermaster (current) use of 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 Z79.01 [place] [id number] [facility] [id number] [address] [place] [address] Apr, penitentiary current use of ant icoagulant Z79.01 [place] [address] [address] [facility] [id number] [address] [place] [address] Apr, Cellulitis of unspecified pa rt of limb L03.119 ; Allergic contact dermatitis due to adhesives L23.1 and Chronic pain syndrome G89.4 [place] [address] [address] Apr, [facility] [address] [address] Apr, penitentiary current use of ant icoagulant Z79.01 ; Cellulitis of unspecified part of limb L03.119 ; Chronic pain syndrome G89.4 and Anxiety F41.9 [place] [address] [address] Apr, [facility] [address] [address] Apr, [place] [address] [address] Mar, [place] [address] [address] Mar, [place] [address] [address] Mar, Sore throat J02.9 ; Gastroes ophageal reflux disease without esophagitis K21.9 ; Pseudotumor cerebri G93.2 ; Chronic pain syndrome G89.4 ; Choriocarcinoma C58 ; History of pulmonary embolism Z86.711 ; History of DVT (deep vein thrombosis) Z86.718 ; Anxiety F41.9 and Tachycardia R00.0 [place] [address] [place] [id number] [address] [place] [address] Feb, Anxiety 300.00 and Chronic p ain 338.29 [facility] [address] [place] [id number] [address] [place] [address] Feb, [facility] [address] [address] Feb, [facility] [address] [place] [id number] [address] [place] [address] Jan, watermaster current use of ant icoagulant therapy V58.61 and Dysuria 788.1 [place] [address] [place] [id number] [address] [place] [address] Jan, Dysuria 788.1 [place] [address] [address] Jan, Anxiety 300.00 and Chronic p ain 338.29 [place] [address] [address] Jan, [place] [address] [address] Jan, [place] [address] [address] Jan, [place] [address] [address] Dec, Weakness 780.79 [place] [address] [address] Dec, watermaster current use of ant icoagulant therapy V58.[address] [address] Dec, Palpitations 785.1 ; Tremor 781.0 ; Weakness 780.79 ; penitentiary current use of anticoagulant therapy V58.61 and Yeast vaginitis 112.1 [place] [address] [place] [id number] [address] [place] [address] Dec, [place] [address] [address] Dec, Cervicalgia 723.1 ; Tachycar yoseph 785.0 ; Pseudotumor cerebri 348.2 and History of venous thromboembolism V12.51 [place] [address] [address] Nov, [place] [address] [place] [id number] [address] [place] [address] Nov, [place] [address] [place] [address] [place] [address] 24 Nov, 2014 Tachycardia 785.0 ; Pseudotu mor cerebri 348.2 ; Anxiety 300.00 and History of venous thromboembolism V12.51 [facility] [address] [id number] [address] [place] [address] 19 Nov, 2014 [facility] [address] [id number] [address] [place] [address] 18 Nov, 2014 [facility] [address] [id number] [address] [place] [address] 16 Nov, 2014 [facility] [address] [id number] [address] [place] [address] Nov, [facility] [address] [facility] [id number] [address] [place] [address] Nov, [facility] [address] [facility] [id number] [address] [place] [address] Nov, [facility] [address] [id number] [address] [place] [address] Nov, [facility] [address] [facility] [id number] [address] [place] [address] October, [facility] [address] [facility] [id number] [address] [place] [address] October, [facility] [address] [facility] [id number] [address] [place] [address] October, Pain in thoracic spine 724.1 and Tachycardia 785.0 [facility] [address] [id number] [address] [place] [address] October, [facility] [address] [facility] [id number] [address] [place] [address] October, [facility] [address] [facility] [id number] [address] [place] [address] 14 Sep, 2014 [facility] [address] [facility] [id number] [address] [place] [address] Sep, [facility] [address] [id number] [address] [place] [address], [place] [address] Aug, [facility] [address] [id number] [address] [place] [address], [place] [address] Aug, [facility] [address] [id number] [address] [place] [address], [place] [address] Aug, [facility] [address] [id number] [address] [place] [address], [place] [address] Aug, [facility] [address] [id number] [address] [place] [address], [place] [address] Aug, [facility] [address] [id number] [address] [place] [address], [place] [address] Aug, [facility] [address] [id number] [address] [place] [address], [place] [address] Aug, [facility] [address] [id number] [address] [place] [address], [place] [address] Aug, [facility] [address] [id number] [address] [place] [address], [place] [address] Aug, [facility] [address] [id number] [address] [place] [address], [place] [address] Aug, [facility] [address] [id number] [address] [place] [address], [place] [address] Aug, [facility] [address] [id number] [address] [place] [address], [place] [address] Aug, [facility] [address] [id number] [address] [place] [address], [place] [address] Jul, [facility] [address] [id number] [address] [place] [address], [place] [address] Jul, [facility] [address] [id number] [address] [place] [address], [place] [address] Jul, [facility] [address] [id number] [address] [place] [address], [place] [address] 23 Jul, 2014 [facility] [address] [id number] [address] [place] [address], [place] [address] 23 Jul, 2014 [facility] [address] [id number] [address] [place] [address], [place] [address] 23 Jul, 2014 [facility] [address] [id number] [address] [place] [address], [place] [address] 23 Jul, 2014 [facility] [address] [id number] [address] [place] [address], [place] [address] 23 Jul, 2014 [facility] [address] [id number] [address] [place] [address], [place] [address] 20 Jul, 2014 [facility] [address] [id number] [address] [place] [address], [place] [address] 20 Jul, 2014 [facility] [address] [id number] [address] [place] [address] 19 Jul, 2014 [facility] [address] [id number] [address] [place] [address], [place] [address] 19 Jul, 2014 [facility] [address] [id number] [address] [place] [address] 17 Jul, 2014 [facility] [address] [id number] [address] [place] [address] 17 Jul, 2014 [facility] [address] [id number] [address] [place] [address] 16 Jul, 2014 [facility] [address] [id number] [address] [place] [address], [place] [address] 16 Jul, 2014 [facility] [address] [id number] [address] [place] [address] 16 Jul, 2014 [facility] [address] [id number] [address] [place] [address] 16 Jul, 2014 [facility] [address] [id number] [address] [place] [address], [place] [address] 13 Jul, 2014 [facility] [address] [id number] [address] [place] [address], [place] [address] Jul, 2014 [facility] [address] [id number] [address] [place] [address], [place] [address] Jul, 2014 [facility] [address] [id number] [address] [place] [address], [place] [address] Jul, 2014 [facility] [address] [id number] [address] [place] [address], [place] [address] Jul, 2014 [facility] [address] [id number] [address] [place] [address], [place] [address] Jul, [facility] [address] [id number] [address] [place] [address], [place] [address] Jul, 2014 [facility] [address] [id number] [address] [place] [address], [place] [address] Jul, [facility] [address] [id number] [address] [place] [address], [place] [address] Jul, [facility] [address] [id number] [address] [place] [address], [place] [address] Jul, [facility] [address] [id number] [address] [place] [address] Jul, [facility] [address] [id number] [address] [place] [address] Jul, [facility] [address] [id number] [address] [place] [address], [place] [address] Jun, [facility] [address] [id number] [address] [place] [address] Jun, [facility] [address] [id number] [address] [place] [address] Jun, [facility] [address] [id number] [address] [place] [address] Jun, [facility] [address] [id number] [address] [place] [address], [place] [address] Jun, [facility] [address] [id number] [address] [place] [address], [place] [address] Jun, [facility] [address] [id number] [address] [place] [address], [place] [address] Jun, [facility] [address] [id number] [address] [place] [address], [place] [address] Jun, [facility] [address] [id number] [address] [place] [address], [place] [address] Jun, [facility] [address] [id number] [address] [place] [address], [place] [address] Jun, [facility] [address] [id number] [address] [place] [address], [place] [address] Jun, [facility] [address] [id number] [address] [place] [address], [place] [address] Jun, [facility] [address] [id number] [address] [place] [address], [place] [address] Jun, [facility] [address] [id number] [address] [place] [address], [place] [address] Jun, [facility] [address] [id number] [address] [place] [address], [place] [address] Jun, [facility] [address] [id number] [address] [place] [address], [place] [address] Jun, [facility] [address] [id number] [address] [place] [address], [place] [address] Jun, [facility] [address] [id number] [address] [place] [address], [place] [address] Jun, [facility] [address] [id number] [address] [place] [address], [place] [address] Jun, [facility] [address] [id number] [address] [place] [address], [place] [address] Jun, [facility] [address] [id number] [address] [place] [address], [place] [address] May, [facility] [address] [id number] [address] [place] [address], [place] [address] May, [facility] [address] [id number] [address] [place] [address], [place] [address] May, [facility] [address] [id number] [address] [place] [address], [place] [address] May, [facility] [address] [id number] [address] [place] [address], [place] [address] May, [facility] [address] [id number] [address] [place] [address], [place] [address] May, [facility] [address] [id number] [address] [place] [address], [place] [address] May, [facility] [address] [id number] [address] [place] [address], [place] [address] May, [facility] [address] [id number] [address] [place] [address], [place] [address] May, [facility] [address] [id number] [address] [place] [address], [place] [address] May, [facility] [address] [id number] [address] [place] [address], [place] [address] May, [facility] [address] [id number] [address] [place] [address], [place] [address] 18 May, 2014 [facility] [address] [id number] [address] [place] [address], [place] [address] 18 May, 2014 [facility] [address] [id number] [address] [place] [address], [place] [address] 17 May, 2014 [facility] [address] [id number] [address] [place] [address], [place] [address] 16 May, 2014 [facility] [address] [id number] [facility] [place] [address] 16 May, 2014 [facility] [address] [id number] [facility] [place] [address] 15 May, 2014 [facility] [address] [id number] [address] [place] [address], [place] [address] 15 May, 2014 [facility] [address] [id number] [address] [place] [address], [place] [address] May, [facility] [address] [id number] [address] [place] [address], [place] [address] May, [facility] [address] [id number] [address] [place] [address], [place] [address] May, [facility] [address] [id number] [address] [place] [address], [place] [address] May, [facility] [address] [id number] [address] [place] [address], [place] [address] May, [facility] [address] [id number] [address] [place] [address], [place] [address] May, [facility] [address] [id number] [address] [place] [address], [place] [address] May, [facility] [address] [id number] [address] [place] [address], [place] [address] May, [facility] [address] [id number] [address] [place] [address], [place] [address] May, [facility] [address] [id number] [address] [place] [address], [place] [address] May, [facility] [address] [id number] [address] [place] [address], [place] [address] May, [facility] [address] [id number] [address] [place] [address], [place] [address] May, [facility] [address] [id number] [address] [place] [address], [place] [address] 05 May, 2014 [facility] [address] [id number] [address] [place] [address], [place] [address] May, [facility] [address] [id number] [address] [place] [address], [place] [address] May, [facility] [address] [id number] [address] [place] [address], [place] [address] May, [facility] [address] [id number] [address] [place] [address], [place] [address] Apr, [facility] [address] [id number] [address] [place] [address], [place] [address] Apr, [facility] [address] [id number] [address] [place] [address], [place] [address] Apr, [facility] [address] [id number] [address] [place] [address], [place] [address] Apr, [facility] [address] [id number] [address] [place] [address], [place] [address] Apr, [facility] [address] [id number] [address] [place] [address], [place] [address] Apr, [facility] [address] [id number] [address] [place] [address], [place] [address] Apr, [facility] [address] [id number] [address] [place] [address], [place] [address] Apr, [facility] [address] [id number] [address] [place] [address], [place] [address] Apr, [facility] [address] [id number] [address] [place] [address], [place] [address] Apr, [facility] [address] [id number] [address] [place] [address], [place] [address] Mar, [facility] [address] [id number] [address] [place] [address], [place] [address] Mar, [facility] [address] [id number] [address] [place] [address], [place] [address] 31 Mar, 2013 [facility] [address] [id number] [address] [place] [address], [place] [address] Mar, 2013 [facility] [address] [id number] [address] [place] [address], [place] [address] 30 Mar, 2014 [facility] [address] [id number] [address] [place] [address], [place] [address] 30 Mar, 2014 [facility] [address] [id number] [address] [place] [address], [place] [address] Mar, [facility] [address] [id number] [address] [place] [address], [place] [address] Mar, [facility] [address] [id number] [address] [place] [address], [place] [address] Mar, [facility] [address] [id number] [address] [place] [address], [place] [address] Mar, [facility] [address] [id number] [address] [place] [address], [place] [address] Mar, [facility] [address] [id number] [address] [place] [address], [place] [address] Mar, [facility] [address] [id number] [address] [place] [address], [place] [address] Mar, [facility] [address] [id number] [address] [place] [address], [place] [address] Mar, [facility] [address] [id number] [address] [place] [address], [place] [address] Mar, [facility] [address] [id number] [address] [place] [address], [place] [address] Mar, [facility] [address] [id number] [address] [place] [address], [place] [address] Mar, [facility] [address] [id number] [address] [place] [address] Mar, [facility] [address] [id number] [address] [place] [address], [place] [address] Mar, [facility] [address] [id number] [address] [place] [address], [place] [address] Mar, [facility] [address] [id number] [address] [place] [address], [place] [address] 05 Sep, 2013 [facility] [address] [id number] [address] [place] [address], [place] [address] 05 Sep, 2013 [facility] [address] [id number] [address] [place] [address], [place] [address] 04 Feb, 2013 [facility] [address] [id number] [address] [place] [address], [place] [address] 04 Feb, 2013 [facility] [address] [id number] [address] [place] [address], [place] [address] Feb, 2013 [facility] [address] [id number] [address] [place] [address], [place] [address] Feb, 2013 [facility] [address] [id number] [address] [place] [address], [place] [address] Feb, 2013 [facility] [address] [id number] [address] [place] [address], [place] [address] Feb, 2013 [facility] [address] [id number] [address] [place] [address], [place] [address] Feb, 2013 [facility] [address] [id number] [address] [place] [address], [place] [address] Feb, 2013 [facility] [address] [id number] [address] [place] [address], [place] [address] Jan, [facility] [address] [id number] [address] [place] [address], [place] [address] Jan, [facility] [address] [id number] [address] [place] [address], [place] [address] Jan, [facility] [address] [id number] [facility] [place] [address] Jan, [facility] [address] [id number] [facility] [place] [address] Jan, [facility] [address] [id number] [facility] [place] [address] Jan, [facility] [address] [id number] [address] [place] [address], [place] [address] Jan, [facility] [address] [id number] [address] [place] [address], [place] [address] Jan, [facility] [address] [id number] [address] [place] [address], [place] [address] Jan, [facility] [address] [id number] [address] [place] [address], [place] [address] Jan, [facility] [address] [id number] [address] [place] [address], [place] [address] Jan, [facility] [address] [id number] [address] [place] [address], [place] [address] Jan, [facility] [address] [id number] [address] [place] [address], [place] [address] Dec, [facility] [address] [id number] [address] [place] [address], [place] [address] Dec, [facility] [address] [id number] [address] [place] [address], [place] [address] Dec, [facility] [address] [id number] [address] [place] [address], [place] [address] Dec, [facility] [address] [id number] [address] [place] [address], [place] [address] Dec, [facility] [address] [id number] [address] [place] [address], [place] [address] Dec, [facility] [address] [id number] [address] [place] [address], [place] [address] Dec, [facility] [address] [id number] [address] [place] [address], [place] [address] Dec, 2013 [facility] [address] [id number] [address] [place] [address], [place] [address] Dec, [facility] [address] [id number] [address] [place] [address], [place] [address] Dec, [facility] [address] [id number] [address] [place] [address], [place] [address] Dec, [facility] [address] [id number] [address] [place] [address], [place] [address] Dec, [facility] [address] [id number] [address] [place] [address], [place] [address] Nov, [facility] [address] [id number] [address] [place] [address], [place] [address] Nov, [facility] [address] [id number] [address] [place] [address], [place] [address] Nov, [facility] [address] [id number] [address] [place] [address], [place] [address] Nov, [facility] [address] [id number] [address] [place] [address], [place] [address] Nov, [facility] [address] [id number] [address] [place] [address], [place] [address] Nov, [facility] [address] [id number] [address] [place] [address], [place] [address] Nov, [facility] [address] [id number] [address] [place] [address], [place] [address] Nov, [facility] [address] [id number] [address] [place] [address], [place] [address] Nov, [facility] [address] [id number] [address] [place] [address], [place] [address] Nov, [facility] [address] [id number] [address] [place] [address], [place] [address] Nov, [facility] [address] [id number] [address] [place] [address], [place] [address] Nov, [facility] [address] [id number] [address] [place] [address], [place] [address] Nov, [facility] [address] [id number] [address] [place] [address], [place] [address] Nov, [facility] [address] [id number] [address] [place] [address], [place] [address] October, [facility] [address] [id number] [address] [place] [address], [place] [address] October, [facility] [address] [id number] [address] [place] [address], [place] [address] October, [facility] [address] [id number] [address] [place] [address], [place] [address] October, [facility] [address] [id number] [address] [place] [address], [place] [address] October, [facility] [address] [id number] [address] [place] [address], [place] [address] October, [facility] [address] [id number] [address] [place] [address], [place] [address] October, [facility] [address] [id number] [address] [place] [address], [place] [address] October, [facility] [address] [id number] [address] [place] [address], [place] [address] October, [facility] [address] [id number] [address] [place] [address], [place] [address] October, [facility] [address] [id number] [address] [place] [address], [place] [address] October, [facility] [address] [id number] [address] [place] [address], [place] [address] October, [facility] [address] [id number] [facility] [place] [address] Sep, [facility] [address] [id number] [facility] [place] [address] Sep, [facility] [address] [id number] [facility] [place] [address] Sep, [facility] [address] [id number] [address] [place] [address], [place] [address] Sep, [facility] [address] [id number] [address] [place] [address], [place] [address] Sep, [facility] [address] [id number] [address] [place] [address], [place] [address] Sep, [facility] [address] [id number] [address] [place] [address], [place] [address] Aug, [facility] [address] [id number] [address] [place] [address], [place] [address] Aug, [facility] [address] [id number] [address] [place] [address], [place] [address] Aug, [facility] [address] [id number] [address] [place] [address], [place] [address] Aug, [facility] [address] [id number] [address] [place] [address], [place] [address] Aug, [facility] [address] [id number] [address] [place] [address], [place] [address] Aug, [facility] [address] [id number] [address] [place] [address], [place] [address] Jul, [facility] [address] [id number] [address] [place] [address], [place] [address] Jul, [facility] [address] [id number] [address] [place] [address], [place] [address] Jul, [facility] [address] [id number] [address] [place] [address], [place] [address] Jul, [facility] [address] [id number] [address] [place] [address], [place] [address] Jul, [facility] [address] [id number] [address] [place] [address], [place] [address] Jul, [facility] [address] [id number] [address] [place] [address], [place] [address] Jul, [facility] [address] [id number] [address] [place] [address], [place] [address] Jul, [facility] [address] [id number] [address] [place] [address], [place] [address] Jul, [facility] [address] [id number] [address] [place] [address], [place] [address] Jul, [facility] [address] [id number] [address] [place] [address], [place] [address] Jun, [facility] [address] [id number] [address] [place] [address], [place] [address] Jun, [facility] [address] [id number] [address] [place] [address], [place] [address] Jun, [facility] [address] [id number] [address] [place] [address], [place] [address] Jun, [facility] [address] [id number] [address] [place] [address], [place] [address] Jun, [facility] [address] [id number] [address] [place] [address], [place] [address] Jun, [facility] [address] [id number] [address] [place] [address], [place] [address] Jun, [facility] [address] [id number] [address] [place] [address], [place] [address] Jun, [facility] [address] [id number] [address] [place] [address], [place] [address] May, [facility] [address] [id number] [address] [place] [address], [place] [address] May, [facility] [address] [id number] [address] [place] [address], [place] [address] May, [facility] [address] [id number] [address] [place] [address], [place] [address] May, [facility] [address] [id number] [address] [place] [address], [place] [address] May, [facility] [address] [id number] [address] [place] [address], [place] [address] May, [facility] [address] [id number] [address] [place] [address], [place] [address] May, [facility] [address] [id number] [address] [place] [address], [place] [address] May, [facility] [address] [id number] [address] [place] [address], [place] [address] Apr, [facility] [address] [id number] [address] [place] [address], [place] [address] Apr, [facility] [address] [id number] [address] [place] [address], [place] [address] Apr, [facility] [address] [id number] [address] [place] [address], [place] [address] Apr, [facility] [address] [id number] [address] [place] [address], [place] [address] Apr, [facility] [address] [id number] [address] [place] [address], [place] [address] Apr, [facility] [address] [id number] [address] [place] [address], [place] [address] Mar, [facility] [address] [id number] [address] [place] [address], [place] [address] Mar, [facility] [address] [id number] [address] [place] [address], [place] [address] Mar, [facility] [address] [id number] [address] [place] [address], [place] [address] Mar, [facility] [address] [id number] [address] [place] [address], [place] [address] Mar, [facility] [address] [id number] [address] [place] [address], [place] [address] Mar, [facility] [address] [id number] [address] [place] [address], [place] [address] Mar, [facility] [address] [id number] [address] [place] [address], [place] [address] 30 Feb, 2013 [facility] [address] [id number] [address] [place] [address], [place] [address] 30 Feb, 2013 [facility] [address] [id number] [address] [place] [address], [place] [address] Feb, [facility] [address] [id number] [address] [place] [address], [place] [address] Feb, [facility] [address] [id number] [address] [place] [address], [place] [address] Feb, [facility] [address] [id number] [address] [place] [address], [place] [address] Feb, [facility] [address] [id number] [address] [place] [address], [place] [address] Jan, [facility] [address] [id number] [address] [place] [address], [place] [address] Jan, [facility] [address] [id number] [address] [place] [address], [place] [address] Jan, [facility] [address] [id number] [address] [place] [address], [place] [address] Jan, [facility] [address] [id number] [address] [place] [address], [place] [address] Jan, [facility] [address] [id number] [address] [place] [address], [place] [address] Jan, [facility] [address] [id number] [address] [place] [address], [place] [address] Jan, [facility] [address] [id number] [address] [place] [address], [place] [address] Jan, [facility] [address] [id number] [address] [place] [address], [place] [address] Jan, [facility] [address] [id number] [address] [place] [address], [place] [address] Dec, [facility] [address] [id number] [address] [place] [address], [place] [address] Dec, [facility] [address] [id number] [address] [place] [address], [place] [address] Dec, [facility] [address] [id number] [address] [place] [address], [place] [address] Dec, [facility] [address] [id number] [address] [place] [address], [place] [address] Dec, [facility] [address] [id number] [address] [place] [address], [place] [address] Dec, [facility] [address] [id number] [address] [place] [address], [place] [address] Dec, [facility] [address] [id number] [address] [place] [address], [place] [address] Dec, [facility] [address] [id number] [address] [place] [address], [place] [address] Dec, [facility] [address] [id number] [address] [place] [address], [place] [address] Dec, [facility] [address] [id number] [address] [place] [address], [place] [address] Dec, [facility] [address] [id number] [address] [place] [address], [place] [address] Dec, [facility] [address] [id number] [address] [place] [address], [place] [address] Dec, [facility] [address] [id number] [address] [place] [address], [place] [address] Nov, [facility] [address] [id number] [address] [place] [address], [place] [address] Nov, [facility] [address] [id number] [address] [place] [address], [place] [address] Nov, [facility] [address] [id number] [address] [place] [address], [place] [address] Nov, [facility] [address] [id number] [address] [place] [address], [place] [address] October, [facility] [address] [id number] [address] [place] [address], [place] [address] October, [facility] [address] [id number] [address] [place] [address], [place] [address] October, [facility] [address] [id number] [address] [place] [address], [place] [address] October, [facility] [address] [id number] [address] [place] [address], [place] [address] October, [facility] [address] [id number] [address] [place] [address], [place] [address] October, [facility] [address] [id number] [address] [place] [address], [place] [address] Sep, [facility] [address] [id number] [address] [place] [address], [place] [address] Sep, [facility] [address] [id number] [address] [place] [address], [place] [address] Sep, [facility] [address] [id number] [address] [place] [address], [place] [address] Sep, [facility] [address] [id number] [address] [place] [address], [place] [address] 19 Sep, 2012 [facility] [address] [id number] [address] [place] [address], [place] [address] 16 Sep, 2012 [facility] [address] [id number] [address] [place] [address], [place] [address] Sep, [facility] [address] [id number] [address] [place] [address], [place] [address] Sep, [facility] [address] [id number] [address] [place] [address], [place] [address] Sep, [facility] [address] [id number] [address] [place] [address], [place] [address] Sep, [facility] [address] [id number] [address] [place] [address], [place] [address] Sep, [facility] [address] [id number] [address] [place] [address], [place] [address] Aug, [facility] [address] [id number] [address] [place] [address], [place] [address] Aug, [facility] [address] [id number] [address] [place] [address], [place] [address] 25 Aug, 2012 [facility] [address] [id number] [address] [place] [address], [place] [address] Aug, [facility] [address] [id number] [address] [place] [address], [place] [address] 19 Aug, 2012 [facility] [address] [id number] [address] [place] [address], [place] [address] 18 Aug, 2012 [facility] [address] [id number] [address] [place] [address], [place] [address] 17 Aug, 2012 [facility] [address] [id number] [address] [place] [address], [place] [address] 15 Aug, 2012 [facility] [address] [id number] [address] [place] [address], [place] [address] 15 Aug, 2012 [facility] [address] [id number] [address] [place] [address], [place] [address] Aug, [facility] [address] [id number] [address] [place] [address], [place] [address] Aug, [facility] [address] [id number] [address] [place] [address], [place] [address] Aug, [facility] [address] [id number] [address] [place] [address], [place] [address] Jul, [facility] [address] [id number] [address] [place] [address], [place] [address] Jul, [facility] [address] [id number] [address] [place] [address], [place] [address] Jul, [facility] [address] [id number] [address] [place] [address], [place] [address] Jul, [facility] [address] [id number] [address] [place] [address], [place] [address] Jul, [facility] [address] [id number] [address] [place] [address], [place] [address] Jul, [facility] [address] [id number] [address] [place] [address], [place] [address] Jul, [facility] [address] [id number] [address] [place] [address], [place] [address] Jul, [facility] [address] [id number] [address] [place] [address], [place] [address] Jul, [facility] [address] [id number] [address] [place] [address], [place] [address] Jul, [facility] [address] [id number] [address] [place] [address], [place] [address] May, [facility] [id number] [id number] [place] [id number] May, [facility] [address] [id number] [place] [address] May, [facility] [address] [id number] [address] [place] [id number] May, [facility] [address] [id number] [address] [place] [id number] May, [facility] [address] [id number] [address] [place] [id number] Apr, [facility] [address] [id number] [place] [id number] Apr, [facility] [address] [id number] [address] [place] [id number] Apr, [facility] [address] [id number] [address] [place] [id number] Mar, [facility] [address] [id number] [place] [id number] Mar, [facility] [address] [id number] [address] [place] [id number] Mar, [facility] [address] [id number] [place] [id number] Feb, [facility] [address] [id number] [address] [place] [id number] Feb, [facility] [address] [id number] [address] [place] [id number] Feb, [facility] [address] [id number] [place] [id number] Feb, [facility] [address] [id number] [place] [id number] Feb, [facility] [address] [id number] [place] [id number] Jan, [facility] [address] [id number] [address] [place] [id number] Jan, [facility] [address] [id number] [place] [id number] Jan, [facility] [place] [address] [id number] [place] [id number] Jan, [facility] [address] [id number] [place] [id number] Jan, [facility] [address] [facility] [id number] [place] [address] Jan, [facility] [address] [facility] [id number] [address] [place] [id number] Jan, [facility] [address] [facility] [id number] [address] [place] [id number] Aug, [facility] [address] [id number] [place] [id number] Aug, [facility] [address] [facility] [id number] [address] [place] [id number] Jul, [facility] [address] [facility] [id number] [address] [place] [id number] Jul, [facility] [address] [facility] [id number] [address] [place] [id number] Jul, [facility] [address] [id number] [place] [id number] Jul, 2011 [facility] [address] [facility] [id number] [address] [place] [id number] Jul, [facility] [address] [id number] [place] [id number] Jul, [facility] [address] [facility] [id number] [address] [place] [id number] Jul, [facility] [address] [id number] [place] [id number] Jul, [facility] [address] [id number] [place] [id number] Jul, [facility] [address] [id number] [place] [id number] Jul, [facility] [address] [facility] [id number] [address] [place] [id number] May, [facility] [address] [id number] [address] [place] [id number] May, [facility] [address] [id number] [address] [place] [id number] May, [facility] [address] [id number] [address] [place] [id number] Apr, [facility] [address] [id number] [address] [place] [id number] Jan, [facility] [address] [id number] [address] [place] [id number] Jan, [facility] [address] [id number] [address] [place] [id number] Dec, [facility] [address] [id number] [address] [place] [id number] Dec, [facility] [address] [id number] [address] [place] [id number] May, [facility] [address] [id number] [address] [place] [id number] Mar, [facility] [address] [id number] [address] [place] [id number] Mar, [facility] [address] [id number] [address] [place] [id number] 14 Jan, 2009 IMMUNIZATIONS No Known Immunizations [...]
--- OUTSIDE RECORDS SUMMARY | 2020-01-28 13:06 | XMS REPORT ---
Author Author Heydi Candelario Doctor Organization [facility] Address Unknown Phone Unavailable Care Team Providers Care Bartacker Name Role Phone Migration, Doctor Unavailable Unavailable PROBLEMS Type Condition ICD9-CM Code [id number] Code Onset Dates Condition S tatus SNOMED Code Problem Chronic pain syndrome G89.4 Active 994831808 Problem Sore throat J02.9 Active 25392314 3 Problem Choriocarcinoma C58 Active 1881 21602 Problem [facility] current use of anticoagulant Z79.01 Active 258804199 Problem History of venous thromboembolism V12.51 Active 324839267 Problem Cellulitis of unspecified part of limb L03.119 Active 086405936 Problem Gastroesophageal reflux disease without esophagitis K21.9 Active 099585404 Problem History of pulmonary embolism Z86.711 Active 417955496 Problem Pseudotumor cerebri G93.2 Active 15995087 Problem History of DVT (deep vein thrombosis) Z86.718 Active [id number] ALLERGIES No Information ENCOUNTERS Encounter Location Date Diagnosis [place] [address] [place] [id number] [address] [place] [id number] 14 Nov, 2019 Encounter for screening labo ratory testing for COVID-19 virus Z11.59 [place] [address] [place] [id number] [address] [place] [address] Apr, 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 [place] [id number] [facility] [id number] [address] [place] [address] Apr, [facility] current use of ant icoagulant Z79.01 [place] [address] [facility] [id number] [address] [place] [address] Apr, Cellulitis of unspecified pa rt of limb L03.119 ; Allergic contact dermatitis due to adhesives L23.1 and Chronic pain syndrome G89.4 [place] [address] [address] Apr, [facility] [address] [address] Apr, [facility] current use of ant icoagulant Z79.01 ; Cellulitis of unspecified part of limb L03.119 ; Chronic pain syndrome G89.4 and Anxiety F41.9 [place] [address] [address] Apr, [facility] [address] [address] Apr, [place] [address] [address] Mar, [place] [address] [address] Mar, [place] [address] [address] Mar, Sore throat J02.9 ; Gastroes ophageal reflux disease without esophagitis K21.9 ; Pseudotumor cerebri G93.2 ; Chronic pain syndrome G89.4 ; Choriocarcinoma C58 ; History of pulmonary embolism Z86.711 ; History of DVT (deep vein thrombosis) Z86.718 ; Anxiety F41.9 and Tachycardia R00.0 [place] [address] [place] [id number] [address] [place] [address] Feb, Anxiety 300.00 and Chronic p ain 338.29 [facility] [address] [place] [id number] [address] [place] [address] Feb, [facility] [address] [address] Feb, [facility] [address] [place] [id number] [address] [place] [address] Jan, 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 use of ant icoagulant therapy V58.61 and Dysuria 788.1 [place] [address] [place] [id number] [address] [place] [address] Jan, Dysuria 788.1 [place] [address] [address] Jan, Anxiety 300.00 and Chronic p ain 338.29 [place] [address] [address] Jan, [place] [address] [address] Jan, [place] [address] [address] Jan, [place] [address] [address] Dec, Weakness 780.79 [place] [address] [address] Dec, 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 use of ant icoagulant therapy V58.[address] [address] Dec, Palpitations 785.1 ; Tremor 781.0 ; Weakness 780.79 ; [facility] current use of anticoagulant therapy V58.61 and Yeast vaginitis 112.1 [place] [address] [place] [id number] [address] [place] [address] Dec, [place] [address] [address] Dec, Cervicalgia 723.1 ; Tachycar yoseph 785.0 ; Pseudotumor cerebri 348.2 and History of venous thromboembolism V12.51 [place] [address] [address] Nov, [place] [address] [place] [id number] [address] [place] [address] Nov, [place] [address] [place] [address] [place] [address] 24 Nov, 2014 Tachycardia 785.0 ; Pseudotu mor cerebri 348.2 ; Anxiety 300.00 and History of venous thromboembolism V12.51 [facility] [address] [id number] [address] [place] [address] 19 Nov, 2014 [facility] [address] [id number] [address] [place] [address] 18 Nov, 2014 [facility] [address] [id number] [address] [place] [address] 16 Nov, 2014 [facility] [address] [id number] [address] [place] [address] Nov, [facility] [address] [facility] [id number] [address] [place] [address] Nov, [facility] [address] [facility] [id number] [address] [place] [address] Nov, [facility] [address] [id number] [address] [place] [address] Nov, [facility] [address] [facility] [id number] [address] [place] [address] October, [facility] [address] [facility] [id number] [address] [place] [address] October, [facility] [address] [facility] [id number] [address] [place] [address] October, Pain in thoracic spine 724.1 and Tachycardia 785.0 [facility] [address] [id number] [address] [place] [address] October, [facility] [address] [facility] [id number] [address] [place] [address] October, [facility] [address] [facility] [id number] [address] [place] [address] 14 Sep, 2014 [facility] [address] [facility] [id number] [address] [place] [phone] Sep, [facility] [address] [id number] [address] [place] [address], [place] [address] Aug, [facility] [address] [id number] [address] [place] [address], [place] [address] Aug, [facility] [address] [id number] [address] [place] [address], [place] [address] Aug, [facility] [address] [id number] [address] [place] [address], [place] [address] Aug, [facility] [address] [id number] [address] [place] [address], [place] [address] Aug, [facility] [address] [id number] [address] [place] [address], [place] [address] Aug, [facility] [address] [id number] [address] [place] [address], [place] [address] Aug, [facility] [address] [id number] [address] [place] [address], [place] [address] Aug, [facility] [address] [id number] [address] [place] [address], [place] [address] Aug, [facility] [address] [id number] [address] [place] [address], [place] [address] Aug, [facility] [address] [id number] [address] [place] [address], [place] [address] Aug, [facility] [address] [id number] [address] [place] [address], [place] [address] Aug, [facility] [address] [id number] [address] [place] [address], [place] [address] Jul, [facility] [address] [id number] [address] [place] [address], [place] [address] Jul, [facility] [address] [id number] [address] [place] [address], [place] [address] Jul, [facility] [address] [id number] [address] [place] [address], [place] [address] 23 Jul, 2014 [facility] [address] [id number] [address] [place] [address], [place] [address] 23 Jul, 2014 [facility] [address] [id number] [address] [place] [address], [place] [address] 23 Jul, 2014 [facility] [address] [id number] [address] [place] [address], [place] [address] 23 Jul, 2014 [facility] [address] [id number] [address] [place] [address], [place] [address] 23 Jul, 2014 [facility] [address] [id number] [address] [place] [address], [place] [address] 20 Jul, 2014 [facility] [address] [id number] [address] [place] [address], [place] [address] 20 Jul, 2014 [facility] [address] [id number] [address] [place] [id number] 19 Jul, 2014 [facility] [address] [id number] [address] [place] [address], [place] [address] 19 Jul, 2014 [facility] [address] [id number] [address] [place] [address] 17 Jul, 2014 [facility] [address] [id number] [address] [place] [address] 17 Jul, 2014 [facility] [address] [id number] [address] [place] [address] 16 Jul, 2014 [facility] [address] [id number] [address] [place] [address], [place] [address] 16 Jul, 2014 [facility] [address] [id number] [address] [place] [address] 16 Jul, 2014 [facility] [address] [id number] [address] [place] [address] 16 Jul, 2014 [facility] [address] [id number] [address] [place] [address], [place] [address] 13 Jul, 2014 [facility] [address] [id number] [address] [place] [address], [place] [address] Jul, 2014 [facility] [address] [id number] [address] [place] [address], [place] [address] Jul, 2014 [facility] [address] [id number] [address] [place] [address], [place] [address] Jul, 2014 [facility] [address] [id number] [address] [place] [address], [place] [address] Jul, 2014 [facility] [address] [id number] [address] [place] [address], [place] [address] Jul, [facility] [address] [id number] [address] [place] [address], [place] [address] Jul, 2014 [facility] [address] [id number] [address] [place] [address], [place] [address] Jul, [facility] [address] [id number] [address] [place] [address], [place] [address] Jul, [facility] [address] [id number] [address] [place] [address], [place] [address] Jul, [facility] [address] [id number] [address] [place] [address] Jul, [facility] [address] [id number] [address] [place] [address] Jul, [facility] [address] [id number] [address] [place] [address], [place] [address] Jun, [facility] [address] [id number] [address] [place] [address] Jun, [facility] [address] [id number] [address] [place] [address] Jun, [facility] [address] [id number] [address] [place] [address] Jun, [facility] [address] [id number] [address] [place] [address], [place] [address] Jun, [facility] [address] [id number] [address] [place] [address], [place] [address] Jun, [facility] [address] [id number] [address] [place] [address], [place] [address] Jun, [facility] [address] [id number] [address] [place] [address], [place] [address] Jun, [facility] [address] [id number] [address] [place] [address], [place] [address] Jun, [facility] [address] [id number] [address] [place] [address], [place] [address] Jun, [facility] [address] [id number] [address] [place] [address], [place] [address] Jun, [facility] [address] [id number] [address] [place] [address], [place] [address] Jun, [facility] [address] [id number] [address] [place] [address], [place] [address] Jun, [facility] [address] [id number] [address] [place] [address], [place] [address] Jun, [facility] [address] [id number] [address] [place] [address], [place] [address] Jun, [facility] [address] [id number] [address] [place] [address], [place] [address] Jun, [facility] [address] [id number] [address] [place] [address], [place] [address] Jun, [facility] [address] [id number] [address] [place] [address], [place] [address] Jun, [facility] [address] [id number] [address] [place] [address], [place] [address] Jun, [facility] [address] [id number] [address] [place] [address], [place] [address] Jun, [facility] [address] [id number] [address] [place] [address], [place] [address] May, [facility] [address] [id number] [address] [place] [address], [place] [address] May, [facility] [address] [id number] [address] [place] [address], [place] [address] May, [facility] [address] [id number] [address] [place] [address], [place] [address] May, [facility] [address] [id number] [address] [place] [address], [place] [address] May, [facility] [address] [id number] [address] [place] [address], [place] [address] May, [facility] [address] [id number] [address] [place] [address], [place] [address] May, [facility] [address] [id number] [address] [place] [address], [place] [address] May, [facility] [address] [id number] [address] [place] [address], [place] [address] May, [facility] [address] [id number] [address] [place] [address], [place] [address] May, [facility] [address] [id number] [address] [place] [address], [place] [address] May, [facility] [address] [id number] [address] [place] [address], [place] [address] 18 May, 2014 [facility] [address] [id number] [address] [place] [address], [place] [address] 18 May, 2014 [facility] [address] [id number] [address] [place] [address], [place] [address] 17 May, 2014 [facility] [address] [id number] [address] [place] [address], [place] [address] 16 May, 2014 [facility] [address] [id number] [facility] [place] [place] [address] 16 May, 2014 [facility] [address] [id number] [facility] [place] [place] [address] 15 May, 2014 [facility] [address] [id number] [address] [place] [address], [place] [address] 15 May, 2014 [facility] [address] [id number] [address] [place] [address], [place] [address] May, [facility] [address] [id number] [address] [place] [address], [place] [address] May, [facility] [address] [id number] [address] [place] [address], [place] [address] May, [facility] [address] [id number] [address] [place] [address], [place] [address] May, [facility] [address] [id number] [address] [place] [address], [place] [address] May, [facility] [address] [id number] [address] [place] [address], [place] [address] May, [facility] [address] [id number] [address] [place] [address], [place] [address] May, [facility] [address] [id number] [address] [place] [address], [place] [address] May, [facility] [address] [id number] [address] [place] [address], [place] [address] May, [facility] [address] [id number] [address] [place] [address], [place] [address] May, [facility] [address] [id number] [address] [place] [address], [place] [address] May, [facility] [address] [id number] [address] [place] [address], [place] [address] May, [facility] [address] [id number] [address] [place] [address], [place] [address] 05 May, 2014 [facility] [address] [id number] [address] [place] [address], [place] [address] May, [facility] [address] [id number] [address] [place] [address], [place] [address] May, [facility] [address] [id number] [address] [place] [address], [place] [address] May, [facility] [address] [id number] [address] [place] [address], [place] [address] Apr, [facility] [address] [id number] [address] [place] [address], [place] [address] Apr, [facility] [address] [id number] [address] [place] [address], [place] [address] Apr, [facility] [address] [id number] [address] [place] [address], [place] [address] Apr, [facility] [address] [id number] [address] [place] [address], [place] [address] Apr, [facility] [address] [id number] [address] [place] [address], [place] [address] Apr, [facility] [address] [id number] [address] [place] [address], [place] [address] Apr, [facility] [address] [id number] [address] [place] [address], [place] [address] Apr, [facility] [address] [id number] [address] [place] [address], [place] [address] Apr, [facility] [address] [id number] [address] [place] [address], [place] [address] Apr, [facility] [address] [id number] [address] [place] [address], [place] [address] Mar, [facility] [address] [id number] [address] [place] [address], [place] [address] Mar, [facility] [address] [id number] [address] [place] [address], [place] [address] 31 Mar, 2013 [facility] [address] [id number] [address] [place] [address], [place] [address] Mar, 2013 [facility] [address] [id number] [address] [place] [address], [place] [address] 30 Mar, 2014 [facility] [address] [id number] [address] [place] [address], [place] [address] 30 Mar, 2014 [facility] [address] [id number] [address] [place] [address], [place] [address] Mar, [facility] [address] [id number] [address] [place] [address], [place] [address] Mar, [facility] [address] [id number] [address] [place] [address], [place] [address] Mar, [facility] [address] [id number] [address] [place] [address], [place] [address] Mar, [facility] [address] [id number] [address] [place] [address], [place] [address] Mar, [facility] [address] [id number] [address] [place] [address], [place] [address] Mar, [facility] [address] [id number] [address] [place] [address], [place] [address] Mar, [facility] [address] [id number] [address] [place] [address], [place] [address] Mar, [facility] [address] [id number] [address] [place] [address], [place] [address] Mar, [facility] [address] [id number] [address] [place] [address], [place] [address] Mar, [facility] [address] [id number] [address] [place] [address], [place] [address] Mar, [facility] [address] [id number] [address] [place] [address] Mar, [facility] [address] [id number] [address] [place] [address], [place] [address] Mar, [facility] [address] [id number] [address] [place] [address], [place] [address] Mar, [facility] [address] [id number] [address] [place] [address], [place] [address] 05 Sep, 2013 [facility] [address] [id number] [address] [place] [address], [place] [address] 05 Sep, 2013 [facility] [address] [id number] [address] [place] [address], [place] [address] 04 Feb, 2013 [facility] [address] [id number] [address] [place] [address], [place] [address] 04 Feb, 2013 [facility] [address] [id number] [address] [place] [address], [place] [address] Feb, 2013 [facility] [address] [id number] [address] [place] [address], [place] [address] Feb, 2013 [facility] [address] [id number] [address] [place] [address], [place] [address] Feb, 2013 [facility] [address] [id number] [address] [place] [address], [place] [address] Feb, 2013 [facility] [address] [id number] [address] [place] [address], [place] [address] Feb, 2013 [facility] [address] [id number] [address] [place] [address], [place] [address] Feb, 2013 [facility] [address] [id number] [address] [place] [address], [place] [address] Jan, [facility] [address] [id number] [address] [place] [address], [place] [address] Jan, [facility] [address] [id number] [address] [place] [address], [place] [address] Jan, [facility] [address] [id number] [facility] [place] [place] [address] Jan, [facility] [address] [id number] [facility] [place] [place] [address] Jan, [facility] [address] [id number] [facility] [place] [place] [address] Jan, [facility] [address] [id number] [address] [place] [address], [place] [address] Jan, [facility] [address] [id number] [address] [place] [address], [place] [address] Jan, [facility] [address] [id number] [address] [place] [address], [place] [address] Jan, [facility] [address] [id number] [address] [place] [address], [place] [address] Jan, [facility] [address] [id number] [address] [place] [address], [place] [address] Jan, [facility] [address] [id number] [address] [place] [address], [place] [address] Jan, [facility] [address] [id number] [address] [place] [address], [place] [address] Dec, [facility] [address] [id number] [address] [place] [address], [place] [address] Dec, [facility] [address] [id number] [address] [place] [address], [place] [address] Dec, [facility] [address] [id number] [address] [place] [place] [address] [address] Dec, [facility] [address] [id number] [address] [place] [address], [place] [address] Dec, [facility] [address] [id number] [address] [place] [address], [place] [address] Dec, [facility] [address] [id number] [address] [place] [address], [place] [address] Dec, [facility] [address] [id number] [address] [place] [address], [place] [address] Dec, 2013 [facility] [address] [id number] [address] [place] [address], [place] [address] Dec, [facility] [address] [id number] [address] [place] [address], [place] [address] Dec, [facility] [address] [id number] [address] [place] [address], [place] [address] Dec, [facility] [address] [id number] [address] [place] [address], [place] [address] Dec, [facility] [address] [id number] [address] [place] [address], [place] [address] Nov, [facility] [address] [id number] [address] [place] [address], [place] [address] Nov, [facility] [address] [id number] [address] [place] [address], [place] [address] Nov, [facility] [address] [id number] [address] [place] [address], [place] [address] Nov, [facility] [address] [id number] [address] [place] [address], [place] [address] Nov, [facility] [address] [id number] [address] [place] [address], [place] [address] Nov, [facility] [address] [id number] [address] [place] [address], [place] [address] Nov, [facility] [address] [id number] [address] [place] [address], [place] [address] Nov, [facility] [address] [id number] [address] [place] [address], [place] [address] Nov, [facility] [address] [id number] [address] [place] [address], [place] [address] Nov, [facility] [address] [id number] [address] [place] [address], [place] [address] Nov, [facility] [address] [id number] [address] [place] [address], [place] [address] Nov, [facility] [address] [id number] [address] [place] [address], [place] [address] Nov, [facility] [address] [id number] [address] [place] [address], [place] [address] Nov, [facility] [address] [id number] [address] [place] [address], [place] [address] October, [facility] [address] [id number] [address] [place] [address], [place] [address] October, [facility] [address] [id number] [address] [place] [address], [place] [address] October, [facility] [address] [id number] [address] [place] [address], [place] [address] October, [facility] [address] [id number] [address] [place] [address], [place] [address] October, [facility] [address] [id number] [address] [place] [address], [place] [address] October, [facility] [address] [id number] [address] [place] [address], [place] [address] October, [facility] [address] [id number] [address] [place] [address], [place] [address] October, [facility] [address] [id number] [address] [place] [address], [place] [address] October, [facility] [address] [id number] [address] [place] [address], [place] [address] October, [facility] [address] [id number] [address] [place] [address], [place] [address] October, [facility] [address] [id number] [address] [place] [address], [place] [address] October, [facility] [address] [id number] [facility] [place] [address] Sep, [facility] [address] [id number] [facility] [place] [place] [address] Sep, [facility] [address] [id number] [facility] [place] [place] [address] Sep, [facility] [address] [id number] [address] [place] [address], [place] [address] Sep, [facility] [address] [id number] [address] [place] [address], [place] [address] Sep, [facility] [address] [id number] [address] [place] [address], [place] [address] Sep, [facility] [address] [id number] [address] [place] [address], [place] [address] Aug, [facility] [address] [id number] [address] [place] [address], [place] [address] Aug, [facility] [address] [id number] [address] [place] [address], [place] [address] Aug, [facility] [address] [id number] [address] [place] [address], [place] [address] Aug, [facility] [address] [id number] [address] [place] [address], [place] [address] Aug, [facility] [address] [id number] [address] [place] [address], [place] [address] Aug, [facility] [address] [id number] [address] [place] [address], [place] [address] Jul, [facility] [address] [id number] [address] [place] [address], [place] [address] Jul, [facility] [address] [id number] [address] [place] [address], [place] [address] Jul, [facility] [address] [id number] [address] [place] [address], [place] [address] Jul, [facility] [address] [id number] [address] [place] [address], [place] [address] Jul, [facility] [address] [id number] [address] [place] [address], [place] [address] Jul, [facility] [address] [id number] [address] [place] [address], [place] [address] Jul, [facility] [address] [id number] [address] [place] [address], [place] [address] Jul, [facility] [address] [id number] [address] [place] [address], [place] [address] Jul, [facility] [address] [id number] [address] [place] [address], [place] [address] Jul, [facility] [address] [id number] [address] [place] [address], [place] [address] Jun, [facility] [address] [id number] [address] [place] [address], [place] [address] Jun, [facility] [address] [id number] [address] [place] [address], [place] [address] Jun, [facility] [address] [id number] [address] [place] [address], [place] [address] Jun, [facility] [address] [id number] [address] [place] [address], [place] [address] Jun, [facility] [address] [id number] [address] [place] [address], [place] [address] Jun, [facility] [address] [id number] [address] [place] [address], [place] [address] Jun, [facility] [address] [id number] [address] [place] [address], [place] [address] Jun, [facility] [address] [id number] [address] [place] [address], [place] [address] May, [facility] [address] [id number] [address] [place] [address], [place] [address] May, [facility] [address] [id number] [address] [place] [address], [place] [address] May, [facility] [address] [id number] [address] [place] [address], [place] [address] May, [facility] [address] [id number] [address] [place] [address], [place] [address] May, [facility] [address] [id number] [address] [place] [address], [place] [address] May, [facility] [address] [id number] [address] [place] [address], [place] [address] May, [facility] [address] [id number] [address] [place] [address], [place] [address] May, [facility] [address] [id number] [address] [place] [address], [place] [address] Apr, [facility] [address] [id number] [address] [place] [address], [place] [address] Apr, [facility] [address] [id number] [address] [place] [address], [place] [address] Apr, [facility] [address] [id number] [address] [place] [address], [place] [address] Apr, [facility] [address] [id number] [address] [place] [address], [place] [address] Apr, [facility] [address] [id number] [address] [place] [address], [place] [address] Apr, [facility] [address] [id number] [address] [place] [address], [place] [address] Mar, [facility] [address] [id number] [address] [place] [address], [place] [address] Mar, [facility] [address] [id number] [address] [place] [address], [place] [address] Mar, [facility] [address] [id number] [address] [place] [address], [place] [address] Mar, [facility] [address] [id number] [address] [place] [address], [place] [address] Mar, [facility] [address] [id number] [address] [place] [address], [place] [address] Mar, [facility] [address] [id number] [address] [place] [address], [place] [address] Mar, [facility] [address] [id number] [address] [place] [address], [place] [address] 30 Feb, 2013 [facility] [address] [id number] [address] [place] [address], [place] [address] 30 Feb, 2013 [facility] [address] [id number] [address] [place] [address], [place] [address] Feb, [facility] [address] [id number] [address] [place] [address], [place] [address] Feb, [facility] [address] [id number] [address] [place] [address], [place] [address] Feb, [facility] [address] [id number] [address] [place] [address], [place] [address] Feb, [facility] [address] [id number] [address] [place] [address], [place] [address] Jan, [facility] [address] [id number] [address] [place] [address], [place] [address] Jan, [facility] [address] [id number] [address] [place] [address], [place] [address] Jan, [facility] [address] [id number] [address] [place] [address], [place] [address] Jan, [facility] [address] [id number] [address] [place] [address], [place] [address] Jan, [facility] [address] [id number] [address] [place] [address], [place] [address] Jan, [facility] [address] [id number] [address] [place] [address], [place] [address] Jan, [facility] [address] [id number] [address] [place] [address], [place] [address] Jan, [facility] [address] [id number] [address] [place] [address], [place] [address] Jan, [facility] [address] [id number] [address] [place] [address], [place] [address] Dec, [facility] [address] [id number] [address] [place] [address], [place] [address] Dec, [facility] [address] [id number] [address] [place] [address], [place] [address] Dec, [facility] [address] [id number] [address] [place] [address], [place] [address] Dec, [facility] [address] [id number] [address] [place] [address], [place] [address] Dec, [facility] [address] [id number] [address] [place] [address], [place] [address] Dec, [facility] [address] [id number] [address] [place] [address], [place] [address] Dec, [facility] [address] [id number] [address] [place] [address], [place] [address] Dec, [facility] [address] [id number] [address] [place] [address], [place] [address] Dec, [facility] [address] [id number] [address] [place] [address], [place] [address] Dec, [facility] [address] [id number] [address] [place] [address], [place] [address] Dec, [facility] [address] [id number] [address] [place] [address], [place] [address] Dec, [facility] [address] [id number] [address] [place] [address], [place] [address] Dec, [facility] [address] [id number] [address] [place] [address], [place] [address] Nov, [facility] [address] [id number] [address] [place] [address], [place] [address] Nov, [facility] [address] [id number] [address] [place] [address], [place] [address] Nov, [facility] [address] [id number] [address] [place] [address], [place] [address] Nov, [facility] [address] [id number] [address] [place] [address], [place] [address] October, [facility] [address] [id number] [address] [place] [address], [place] [address] October, [facility] [address] [id number] [address] [place] [address], [place] [address] October, [facility] [address] [id number] [address] [place] [address], [place] [address] October, [facility] [address] [id number] [address] [place] [address], [place] [address] October, [facility] [address] [id number] [address] [place] [address], [place] [address] October, [facility] [address] [id number] [address] [place] [address], [place] [address] Sep, [facility] [address] [id number] [address] [place] [address], [place] [address] Sep, [facility] [address] [id number] [address] [place] [address], [place] [address] Sep, [facility] [address] [id number] [address] [place] [address], [place] [address] Sep, [facility] [address] [id number] [address] [place] [address], [place] [address] 19 Sep, 2012 [facility] [address] [id number] [address] [place] [address], [place] [address] 16 Sep, 2012 [facility] [address] [id number] [address] [place] [address], [place] [address] Sep, [facility] [address] [id number] [address] [place] [address], [place] [address] Sep, [facility] [address] [id number] [address] [place] [address], [place] [address] Sep, [facility] [address] [id number] [address] [place] [address], [place] [address] Sep, [facility] [address] [id number] [address] [place] [address], [place] [address] Sep, [facility] [address] [id number] [address] [place] [address], [place] [address] Aug, [facility] [address] [id number] [address] [place] [address], [place] [address] Aug, [facility] [address] [id number] [address] [place] [address], [place] [address] 25 Aug, 2012 [facility] [address] [id number] [address] [place] [address], [place] [address] Aug, [facility] [address] [id number] [address] [place] [address], [place] [address] 19 Aug, 2012 [facility] [address] [id number] [address] [place] [address], [place] [address] 18 Aug, 2012 [facility] [address] [id number] [address] [place] [address], [place] [address] 17 Aug, 2012 [facility] [address] [id number] [address] [place] [address], [place] [address] 15 Aug, 2012 [facility] [address] [id number] [address] [place] [address], [place] [address] 15 Aug, 2012 [facility] [address] [id number] [address] [place] [address], [place] [address] Aug, [facility] [address] [id number] [address] [place] [address], [place] [address] Aug, [facility] [address] [id number] [address] [place] [address], [place] [address] Aug, [facility] [address] [id number] [address] [place] [address], [place] [address] Jul, [facility] [address] [id number] [address] [place] [address], [place] [address] Jul, [facility] [address] [id number] [address] [place] [address], [place] [address] Jul, [facility] [address] [id number] [address] [place] [address], [place] [address] Jul, [facility] [address] [id number] [address] [place] [address], [place] [address] Jul, [facility] [address] [id number] [address] [place] [address], [place] [address] Jul, [facility] [address] [id number] [address] [place] [address], [place] [address] Jul, [facility] [address] [id number] [address] [place] [address], [place] [address] Jul, [facility] [address] [id number] [address] [place] [address], [place] [address] Jul, [facility] [address] [id number] [address] [place] [address], [place] [address] Jul, [facility] [address] [id number] [address] [place] [address], [place] [address] May, [facility] [address] [id number] [place] [id number] May, [facility] [address] [id number] [address] [address] May, [facility] [address] [id number] [address] [place] [id number] May, [facility] [address] [id number] [address] [place] [id number] May, [facility] [address] [id number] [address] [place] [id number] Apr, [facility] [address] [id number] [place] [id number] Apr, [facility] [address] [id number] [address] [place] [id number] Apr, [facility] [address] [id number] [address] [place] [id number] Mar, [facility] [place] [address] [id number] [place] [id number] Mar, [facility] [address] [id number] [address] [place] [id number] Mar, [facility] [address] [id number] [place] [id number] Feb, [facility] [address] [id number] [address] [place] [id number] Feb, [facility] [address] [id number] [address] [place] [id number] Feb, [facility] [address] [id number] [place] [id number] Feb, [facility] [place] [address] [id number] [place] [id number] Feb, [facility] [place] [address] [id number] [place] [id number] Jan, [facility] [address] [id number] [address] [place] [id number] Jan, [facility] [place] [address] [id number] [place] [id number] Jan, [facility] [place] [address] [id number] [place] [id number] Jan, [facility] [place] [address] [id number] [place] [id number] Jan, [facility] [address] [facility] [id number] [address] [place] [address] Jan, [facility] [address] [facility] [id number] [address] [place] [id number] Jan, [facility] [address] [facility] [id number] [address] [place] [id number] Aug, [facility] [place] [address] [id number] [place] [id number] Aug, [facility] [address] [facility] [id number] [address] [place] [id number] Jul, [facility] [address] [facility] [id number] [address] [place] [id number] Jul, [facility] [address] [facility] [id number] [address] [place] [id number] Jul, [facility] [place] [address] [id number] [place] [id number] Jul, 2011 [facility] [address] [facility] [id number] [address] [place] [id number] Jul, [facility] [place] [address] [id number] [place] [id number] Jul, [facility] [address] [facility] [id number] [address] [place] [id number] Jul, [facility] [place] [address] [id number] [place] [id number] Jul, [facility] [place] [address] [id number] [place] [id number] Jul, [facility] [place] [address] [id number] [place] [id number] Jul, [facility] [address] [facility] [id number] [address] [place] [id number] May, [facility] [address] [id number] [address] [place] [id number] May, [facility] [address] [id number] [address] [place] [id number] May, [facility] [address] [id number] [address] [place] [id number] Apr, [facility] [address] [id number] [address] [place] [id number] Jan, [facility] [address] [id number] [address] [place] [id number] Jan, [facility] [address] [id number] [address] [place] [id number] Dec, [facility] [address] [id number] [address] [place] [id number] Dec, [facility] [address] [id number] [address] [place] [id number] May, [facility] [address] [id number] [address] [place] [id number] Mar, [facility] [address] [id number] [address] [place] [id number] Mar, [facility] [address] [id number] [address] [place] [id number] 14 Jan, 2009 IMMUNIZATIONS No Known Immunizations SOCIAL HISTORY Never Assessed REASON FOR VISIT PLAN OF CARE VITAL SIGNS MEDICATIONS Unknown Medications RESULTS No Results PROCEDURES Procedure Date Ordered Result Body Site PROTHROMBIN TIME October 26, 2012 INSTRUCTIONS MEDICATIONS ADMINISTERED No Known Medications [...]
--- OUTSIDE RECORDS SUMMARY | 2020-01-28 13:06 | XMS REPORT ---
Author Author Heydi Candelario Doctor Organization [facility] Address Unknown Phone Unavailable Care Team Providers Care Skein Washer Name Role Phone Migration, Doctor Unavailable Unavailable PROBLEMS Type Condition ICD9-CM Code SWV87-GG Code Onset Dates Condition S tatus SNOMED Code Problem Chronic pain syndrome G89.4 Active 902892484 Problem Sore throat J02.9 Active 46642315 3 Problem Choriocarcinoma C58 Active 1881 07804 Problem half-way current use of anticoagulant Z79.01 Active 466448274 Problem History of venous thromboembolism V12.51 Active 592347281 Problem Cellulitis of unspecified part of limb L03.119 Active 903549627 Problem Gastroesophageal reflux disease without esophagitis K21.9 Active 319842091 Problem History of pulmonary embolism Z86.711 Active 788587467 Problem Pseudotumor cerebri G93.2 Active 38359257 Problem History of DVT (deep vein thrombosis) Z86.718 Active 882657103 ALLERGIES No Information ENCOUNTERS Encounter Location Date Diagnosis [place] [address] [place] [id number] [address] [place] [id number] 14 Nov, 2019 Encounter for screening labo ratory testing for COVID-19 virus Z11.59 [place] [address] [place] [id number] [address] [place] [id number] Apr, 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 Z79.01 [place] [id number] [facility] [id number] [address] [place] [address] Apr, half-way current use of ant icoagulant Z79.01 [place] [address] [address] [facility] [id number] [address] [place] [address] Apr, Cellulitis of unspecified pa rt of limb L03.119 ; Allergic contact dermatitis due to adhesives L23.1 and Chronic pain syndrome G89.4 [place] [address] [address] Apr, [facility] [address] [address] Apr, half-way current use of ant icoagulant Z79.01 ; Cellulitis of unspecified part of limb L03.119 ; Chronic pain syndrome G89.4 and Anxiety F41.9 [place] [address] [address] Apr, [facility] [address] [address] Apr, [place] [address] [address] Mar, [place] [address] [address] Mar, [place] [address] [address] Mar, Sore throat J02.9 ; Gastroes ophageal reflux disease without esophagitis K21.9 ; Pseudotumor cerebri G93.2 ; Chronic pain syndrome G89.4 ; Choriocarcinoma C58 ; History of pulmonary embolism Z86.711 ; History of DVT (deep vein thrombosis) Z86.718 ; Anxiety F41.9 and Tachycardia R00.0 [place] [address] [place] [id number] [address] [place] [address] Feb, Anxiety 300.00 and Chronic p ain 338.29 [facility] [address] [place] [id number] [address] [place] [address] Feb, [facility] [address] [address] Feb, [facility] [address] [place] [id number] [address] [place] [address] Jan, field trainer current use of ant icoagulant therapy V58.61 and Dysuria 788.1 [place] [address] [place] [id number] [address] [place] [address] Jan, Dysuria 788.1 [place] [address] [address] Jan, Anxiety 300.00 and Chronic p ain 338.29 [place] [address] [address] Jan, [place] [address] [address] Jan, [place] [address] [address] Jan, [place] [address] [address] Dec, Weakness 780.79 [place] [address] [address] Dec, field trainer current use of ant icoagulant therapy V58.[address] [address] Dec, Palpitations 785.1 ; Tremor 781.0 ; Weakness 780.79 ; half-way current use of anticoagulant therapy V58.61 and Yeast vaginitis 112.1 [place] [address] [place] [id number] [address] [place] [address] Dec, [place] [address] [address] Dec, Cervicalgia 723.1 ; Tachycar yoseph 785.0 ; Pseudotumor cerebri 348.2 and History of venous thromboembolism V12.51 [place] [address] [address] Nov, [place] [address] [place] [id number] [address] [place] [address] Nov, [place] [address] [place] [address] [place] [address] 24 Nov, 2014 Tachycardia 785.0 ; Pseudotu mor cerebri 348.2 ; Anxiety 300.00 and History of venous thromboembolism V12.51 [facility] [address] [id number] [address] [place] [address] 19 Nov, 2014 [facility] [address] [id number] [address] [place] [address] 18 Nov, 2014 [facility] [address] [id number] [address] [place] [address] 16 Nov, 2014 [facility] [address] [id number] [address] [place] [address] Nov, [facility] [address] [facility] [id number] [address] [place] [address] Nov, [facility] [address] [facility] [id number] [address] [place] [address] Nov, [facility] [address] [id number] [address] [place] [address] Nov, [facility] [address] [facility] [id number] [address] [place] [address] October, [facility] [address] [facility] [id number] [address] [place] [address] October, [facility] [address] [facility] [id number] [address] [place] [address] October, Pain in thoracic spine 724.1 and Tachycardia 785.0 [facility] [address] [id number] [address] [place] [address] October, [facility] [address] [facility] [id number] [address] [place] [address] October, [facility] [address] [facility] [id number] [address] [place] [address] 14 Sep, 2014 [facility] [address] [facility] [id number] [address] [place] [address] Sep, [facility] [address] [id number] [address] [place] [address], [place] [address] Aug, [facility] [address] [id number] [address] [place] [address], [place] [address] Aug, [facility] [address] [id number] [address] [place] [address], [place] [address] Aug, [facility] [address] [id number] [address] [place] [address], [place] [address] Aug, [facility] [address] [id number] [address] [place] [address], [place] [address] Aug, [facility] [address] [id number] [address] [place] [address], [place] [address] Aug, [facility] [address] [id number] [address] [place] [address], [place] [address] Aug, [facility] [address] [id number] [address] [place] [address], [place] [address] Aug, [facility] [address] [id number] [address] [place] [address], [place] [address] Aug, [facility] [address] [id number] [address] [place] [address], [place] [address] Aug, [facility] [address] [id number] [address] [place] [address], [place] [address] Aug, [facility] [address] [id number] [address] [place] [address], [place] [address] Aug, [facility] [address] [id number] [address] [place] [address], [place] [address] Jul, [facility] [address] [id number] [address] [place] [address], [place] [address] Jul, [facility] [address] [id number] [address] [place] [address], [place] [address] Jul, [facility] [address] [id number] [address] [place] [address], [place] [address] 23 Jul, 2014 [facility] [address] [id number] [address] [place] [address], [place] [address] 23 Jul, 2014 [facility] [address] [id number] [address] [place] [address], [place] [address] 23 Jul, 2014 [facility] [address] [id number] [address] [place] [address], [place] [address] 23 Jul, 2014 [facility] [address] [id number] [address] [place] [address], [place] [address] 23 Jul, 2014 [facility] [address] [id number] [address] [place] [address], [place] [address] 20 Jul, 2014 [facility] [address] [id number] [address] [place] [address], [place] [address] 20 Jul, 2014 [facility] [address] [id number] [address] [place] [phone] 19 Jul, 2014 [facility] [address] [id number] [address] [place] [address], [place] [address] 19 Jul, 2014 [facility] [address] [id number] [address] [place] [address] 17 Jul, 2014 [facility] [address] [id number] [address] [place] [address] 17 Jul, 2014 [facility] [address] [id number] [address] [place] [address] 16 Jul, 2014 [facility] [address] [id number] [address] [place] [address], [place] [address] 16 Jul, 2014 [facility] [address] [id number] [address] [place] [id number] 16 Jul, 2014 [facility] [address] [id number] [address] [place] [address] 16 Jul, 2014 [facility] [address] [id number] [address] [place] [address], [place] [address] 13 Jul, 2014 [facility] [address] [id number] [address] [place] [address], [place] [address] Jul, 2014 [facility] [address] [id number] [address] [place] [address], [place] [address] Jul, 2014 [facility] [address] [id number] [address] [place] [address], [place] [address] Jul, 2014 [facility] [address] [id number] [address] [place] [address], [place] [address] Jul, 2014 [facility] [address] [id number] [address] [place] [address], [place] [address] Jul, [facility] [address] [id number] [address] [place] [address], [place] [address] Jul, 2014 [facility] [address] [id number] [address] [place] [address], [place] [address] Jul, [facility] [address] [id number] [address] [place] [address], [place] [address] Jul, [facility] [address] [id number] [address] [place] [address], [place] [address] Jul, [facility] [address] [id number] [address] [place] [address] Jul, [facility] [address] [id number] [address] [place] [address] Jul, [facility] [address] [id number] [address] [place] [address], [place] [address] Jun, [facility] [address] [id number] [address] [place] [address] Jun, [facility] [address] [id number] [address] [place] [address] Jun, [facility] [address] [id number] [address] [place] [address] Jun, [facility] [address] [id number] [address] [place] [address], [place] [address] Jun, [facility] [address] [id number] [address] [place] [address], [place] [address] Jun, [facility] [address] [id number] [address] [place] [address], [place] [address] Jun, [facility] [address] [id number] [address] [place] [address], [place] [address] Jun, [facility] [address] [id number] [address] [place] [address], [place] [address] Jun, [facility] [address] [id number] [address] [place] [address], [place] [address] Jun, [facility] [address] [id number] [address] [place] [address], [place] [address] Jun, [facility] [address] [id number] [address] [place] [address], [place] [address] Jun, [facility] [address] [id number] [address] [place] [address], [place] [address] Jun, [facility] [address] [id number] [address] [place] [address], [place] [address] Jun, [facility] [address] [id number] [address] [place] [address], [place] [address] Jun, [facility] [address] [id number] [address] [place] [address], [place] [address] Jun, [facility] [address] [id number] [address] [place] [address], [place] [address] Jun, [facility] [address] [id number] [address] [place] [address], [place] [address] Jun, [facility] [address] [id number] [address] [place] [address], [place] [address] Jun, [facility] [address] [id number] [address] [place] [address], [place] [address] Jun, [facility] [address] [id number] [address] [place] [address], [place] [address] May, [facility] [address] [id number] [address] [place] [address], [place] [address] May, [facility] [address] [id number] [address] [place] [address], [place] [address] May, [facility] [address] [id number] [address] [place] [address], [place] [address] May, [facility] [address] [id number] [address] [place] [address], [place] [address] May, [facility] [address] [id number] [address] [place] [address], [place] [address] May, [facility] [address] [id number] [address] [place] [address], [place] [address] May, [facility] [address] [id number] [address] [place] [address], [place] [address] May, [facility] [address] [id number] [address] [place] [address], [place] [address] May, [facility] [address] [id number] [address] [place] [address], [place] [address] May, [facility] [address] [id number] [address] [place] [address], [place] [address] May, [facility] [address] [id number] [address] [place] [address], [place] [address] 18 May, 2014 [facility] [address] [id number] [address] [place] [address], [place] [address] 18 May, 2014 [facility] [address] [id number] [address] [place] [address], [place] [address] 17 May, 2014 [facility] [address] [id number] [address] [place] [address], [place] [address] 16 May, 2014 [facility] [address] [id number] [facility] [place] [address] 16 May, 2014 [facility] [address] [id number] [facility] [place] [address] 15 May, 2014 [facility] [address] [id number] [address] [place] [address], [place] [address] 15 May, 2014 [facility] [address] [id number] [address] [place] [address], [place] [address] May, [facility] [address] [id number] [address] [place] [address], [place] [address] May, [facility] [address] [id number] [address] [place] [address], [place] [address] May, [facility] [address] [id number] [address] [place] [address], [place] [address] May, [facility] [address] [id number] [address] [place] [address], [place] [address] May, [facility] [address] [id number] [address] [place] [address], [place] [address] May, [facility] [address] [id number] [address] [place] [address], [place] [address] May, [facility] [address] [id number] [address] [place] [address], [place] [address] May, [facility] [address] [id number] [address] [place] [address], [place] [address] May, [facility] [address] [id number] [address] [place] [address], [place] [address] May, [facility] [address] [id number] [address] [place] [address], [place] [address] May, [facility] [address] [id number] [address] [place] [address], [place] [address] May, [facility] [address] [id number] [address] [place] [address], [place] [address] 05 May, 2014 [facility] [address] [id number] [address] [place] [address], [place] [address] May, [facility] [address] [id number] [address] [place] [address], [place] [address] May, [facility] [address] [id number] [address] [place] [address], [place] [address] May, [facility] [address] [id number] [address] [place] [address], [place] [address] Apr, [facility] [address] [id number] [address] [place] [address], [place] [address] Apr, [facility] [address] [id number] [address] [place] [address], [place] [address] Apr, [facility] [address] [id number] [address] [place] [address], [place] [address] Apr, [facility] [address] [id number] [address] [place] [address], [place] [address] Apr, [facility] [address] [id number] [address] [place] [address], [place] [address] Apr, [facility] [address] [id number] [address] [place] [address], [place] [address] Apr, [facility] [address] [id number] [address] [place] [address], [place] [address] Apr, [facility] [address] [id number] [address] [place] [address], [place] [address] Apr, [facility] [address] [id number] [address] [place] [address], [place] [address] Apr, [facility] [address] [id number] [address] [place] [address], [place] [address] Mar, [facility] [address] [id number] [address] [place] [address], [place] [address] Mar, [facility] [address] [id number] [address] [place] [address], [place] [address] 31 Mar, 2013 [facility] [address] [id number] [address] [place] [address], [place] [address] Mar, 2013 [facility] [address] [id number] [address] [place] [address], [place] [address] 30 Mar, 2014 [facility] [address] [id number] [address] [place] [address], [place] [address] 30 Mar, 2014 [facility] [address] [id number] [address] [place] [address], [place] [address] Mar, [facility] [address] [id number] [address] [place] [address], [place] [address] Mar, [facility] [address] [id number] [address] [place] [address], [place] [address] Mar, [facility] [address] [id number] [address] [place] [address], [place] [address] Mar, [facility] [address] [id number] [address] [place] [address], [place] [address] Mar, [facility] [address] [id number] [address] [place] [address], [place] [address] Mar, [facility] [address] [id number] [address] [place] [address], [place] [address] Mar, [facility] [address] [id number] [address] [place] [address], [place] [address] Mar, [facility] [address] [id number] [address] [place] [address], [place] [address] Mar, [facility] [address] [id number] [address] [place] [address], [place] [address] Mar, [facility] [address] [id number] [address] [place] [address], [place] [address] Mar, [facility] [address] [id number] [address] [place] [id number] Mar, [facility] [address] [id number] [address] [place] [address], [place] [address] Mar, [facility] [address] [id number] [address] [place] [address], [place] [address] Mar, [facility] [address] [id number] [address] [place] [address], [place] [address] 05 Sep, 2013 [facility] [address] [id number] [address] [place] [address], [place] [address] 05 Sep, 2013 [facility] [address] [id number] [address] [place] [address], [place] [address] 04 Feb, 2013 [facility] [address] [id number] [address] [place] [address], [place] [address] 04 Feb, 2013 [facility] [address] [id number] [address] [place] [address], [place] [address] Feb, 2013 [facility] [address] [id number] [address] [place] [address], [place] [address] Feb, 2013 [facility] [address] [id number] [address] [place] [address], [place] [address] Feb, 2013 [facility] [address] [id number] [address] [place] [address], [place] [address] Feb, 2013 [facility] [address] [id number] [address] [place] [address], [place] [address] Feb, 2013 [facility] [address] [id number] [address] [place] [address], [place] [address] Feb, 2013 [facility] [address] [id number] [address] [place] [address], [place] [address] Jan, [facility] [address] [id number] [address] [place] [address], [place] [address] Jan, [facility] [address] [id number] [address] [place] [address], [place] [address] Jan, [facility] [address] [id number] [facility] [place] [address] Jan, [facility] [address] [id number] [facility] [place] [address] Jan, [facility] [address] [id number] [address] [place] [address] Jan, [facility] [address] [id number] [address] [place] [address], [place] [address] Jan, [facility] [address] [id number] [address] [place] [address], [place] [address] Jan, [facility] [address] [id number] [address] [place] [address], [place] [address] Jan, [facility] [address] [id number] [address] [place] [address], [place] [address] Jan, [facility] [address] [id number] [address] [place] [address], [place] [address] Jan, [facility] [address] [id number] [address] [place] [address], [place] [address] Jan, [facility] [address] [id number] [address] [place] [address], [place] [address] Dec, [facility] [address] [id number] [address] [place] [address], [place] [address] Dec, [facility] [address] [id number] [address] [place] [address], [place] [address] Dec, [facility] [address] [id number] [address] [place] [address], [place] [address] Dec, [facility] [address] [id number] [address] [place] [address], [place] [address] Dec, [facility] [address] [id number] [address] [place] [address], [place] [address] Dec, [facility] [address] [id number] [address] [place] [address], [place] [address] Dec, [facility] [address] [id number] [address] [place] [address], [place] [address] Dec, 2013 [facility] [address] [id number] [address] [place] [address], [place] [address] Dec, [facility] [address] [id number] [address] [place] [address], [place] [address] Dec, [facility] [address] [id number] [address] [place] [address], [place] [address] Dec, [facility] [address] [id number] [address] [place] [address], [place] [address] Dec, [facility] [address] [id number] [address] [place] [address], [place] [address] Nov, [facility] [address] [id number] [address] [place] [address], [place] [address] Nov, [facility] [address] [id number] [address] [place] [address], [place] [address] Nov, [facility] [address] [id number] [address] [place] [address], [place] [address] Nov, [facility] [address] [id number] [address] [place] [address], [place] [address] Nov, [facility] [address] [id number] [address] [place] [address], [place] [address] Nov, [facility] [address] [id number] [address] [place] [address], [place] [address] Nov, [facility] [address] [id number] [address] [place] [address], [place] [address] Nov, [facility] [address] [id number] [address] [place] [address], [place] [address] Nov, [facility] [address] [id number] [address] [place] [address], [place] [address] Nov, [facility] [address] [id number] [address] [place] [address], [place] [address] Nov, [facility] [address] [id number] [address] [place] [address], [place] [address] Nov, [facility] [address] [id number] [address] [place] [address], [place] [address] Nov, [facility] [address] [id number] [address] [place] [address], [place] [address] Nov, [facility] [address] [id number] [address] [place] [address], [place] [address] October, [facility] [address] [id number] [address] [place] [address], [place] [address] October, [facility] [address] [id number] [address] [place] [address], [place] [address] October, [facility] [address] [id number] [address] [place] [address], [place] [address] October, [facility] [address] [id number] [address] [place] [address], [place] [address] October, [facility] [address] [id number] [address] [place] [address], [place] [address] October, [facility] [address] [id number] [address] [place] [address], [place] [address] October, [facility] [address] [id number] [address] [place] [address], [place] [address] October, [facility] [address] [id number] [address] [place] [address], [place] [address] October, [facility] [address] [id number] [address] [place] [address], [place] [address] October, [facility] [address] [id number] [address] [place] [address], [place] [address] October, [facility] [address] [id number] [address] [place] [address], [place] [address] October, [facility] [address] [id number] [facility] [place] [address] Sep, [facility] [address] [id number] [facility] [place] [address] Sep, [facility] [address] [id number] [address] [place] [address] Sep, [facility] [address] [id number] [address] [place] [address], [place] [address] Sep, [facility] [address] [id number] [address] [place] [address], [place] [address] Sep, [facility] [address] [id number] [address] [place] [address], [place] [address] Sep, [facility] [address] [id number] [address] [place] [address], [place] [address] Aug, [facility] [address] [id number] [address] [place] [address], [place] [address] Aug, [facility] [address] [id number] [address] [place] [address], [place] [address] Aug, [facility] [address] [id number] [address] [place] [address], [place] [address] Aug, [facility] [address] [id number] [address] [place] [address], [place] [address] Aug, [facility] [address] [id number] [address] [place] [address], [place] [address] Aug, [facility] [address] [id number] [address] [place] [address], [place] [address] Jul, [facility] [address] [id number] [address] [place] [address], [place] [address] Jul, [facility] [address] [id number] [address] [place] [address], [place] [address] Jul, [facility] [address] [id number] [address] [place] [address], [place] [address] Jul, [facility] [address] [id number] [address] [place] [address], [place] [address] Jul, [facility] [address] [id number] [address] [place] [address], [place] [address] Jul, [facility] [address] [id number] [address] [place] [address], [place] [address] Jul, [facility] [address] [id number] [address] [place] [address], [place] [address] Jul, [facility] [address] [id number] [address] [place] [address], [place] [address] Jul, [facility] [address] [id number] [address] [place] [address], [place] [address] Jul, [facility] [address] [id number] [address] [place] [address], [place] [address] Jun, [facility] [address] [id number] [address] [place] [address], [place] [address] Jun, [facility] [address] [id number] [address] [place] [address], [place] [address] Jun, [facility] [address] [id number] [address] [place] [address], [place] [address] Jun, [facility] [address] [id number] [address] [place] [address], [place] [address] Jun, [facility] [address] [id number] [address] [place] [address], [place] [address] Jun, [facility] [address] [id number] [address] [place] [address], [place] [address] Jun, [facility] [address] [id number] [address] [place] [address], [place] [address] Jun, [facility] [address] [id number] [address] [place] [address], [place] [address] May, [facility] [address] [id number] [address] [place] [address], [place] [address] May, [facility] [address] [id number] [address] [place] [address], [place] [address] May, [facility] [address] [id number] [address] [place] [address], [place] [address] May, [facility] [address] [id number] [address] [place] [address], [place] [address] May, [facility] [address] [id number] [address] [place] [address], [place] [address] May, [facility] [address] [id number] [address] [place] [address], [place] [address] May, [facility] [address] [id number] [address] [place] [address], [place] [address] May, [facility] [address] [id number] [address] [place] [address], [place] [address] Apr, [facility] [address] [id number] [address] [place] [address], [place] [address] Apr, [facility] [address] [id number] [address] [place] [address], [place] [address] Apr, [facility] [address] [id number] [address] [place] [address], [place] [address] Apr, [facility] [address] [id number] [address] [place] [address], [place] [address] Apr, [facility] [address] [id number] [address] [place] [address], [place] [address] Apr, [facility] [address] [id number] [address] [place] [address], [place] [address] Mar, [facility] [address] [id number] [address] [place] [address], [place] [address] Mar, [facility] [address] [id number] [address] [place] [address], [place] [address] Mar, [facility] [address] [id number] [address] [place] [address], [place] [address] Mar, [facility] [address] [id number] [address] [place] [address], [place] [address] Mar, [facility] [address] [id number] [address] [place] [address], [place] [address] Mar, [facility] [address] [id number] [address] [place] [address], [place] [address] Mar, [facility] [address] [id number] [address] [place] [address], [place] [address] 30 Feb, 2013 [facility] [address] [id number] [address] [place] [address], [place] [address] 30 Feb, 2013 [facility] [address] [id number] [address] [place] [address], [place] [address] Feb, [facility] [address] [id number] [address] [place] [address], [place] [address] Feb, [facility] [address] [id number] [address] [place] [address], [place] [address] Feb, [facility] [address] [id number] [address] [place] [address], [place] [address] Feb, [facility] [address] [id number] [address] [place] [address], [place] [address] Jan, [facility] [address] [id number] [address] [place] [address], [place] [address] Jan, [facility] [address] [id number] [address] [place] [address], [place] [address] Jan, [facility] [address] [id number] [address] [place] [address], [place] [address] Jan, [facility] [address] [id number] [address] [place] [address], [place] [address] Jan, [facility] [address] [id number] [address] [place] [address], [place] [address] Jan, [facility] [address] [id number] [address] [place] [address], [place] [address] Jan, [facility] [address] [id number] [address] [place] [address], [place] [address] Jan, [facility] [address] [id number] [address] [place] [address], [place] [address] Jan, [facility] [address] [id number] [address] [place] [address], [place] [address] Dec, [facility] [address] [id number] [address] [place] [address], [place] [address] Dec, [facility] [address] [id number] [address] [place] [address], [place] [address] Dec, [facility] [address] [id number] [address] [place] [address], [place] [address] Dec, [facility] [address] [id number] [address] [place] [address], [place] [address] Dec, [facility] [address] [id number] [address] [place] [address], [place] [address] Dec, [facility] [address] [id number] [address] [place] [address], [place] [address] Dec, [facility] [address] [id number] [address] [place] [address], [place] [address] Dec, [facility] [address] [id number] [address] [place] [address], [place] [address] Dec, [facility] [address] [id number] [address] [place] [address], [place] [address] Dec, [facility] [address] [id number] [address] [place] [address], [place] [address] Dec, [facility] [address] [id number] [address] [place] [address], [place] [address] Dec, [facility] [address] [id number] [address] [place] [address], [place] [address] Dec, [facility] [address] [id number] [address] [place] [address], [place] [address] Nov, [facility] [address] [id number] [address] [place] [address], [place] [address] Nov, [facility] [address] [id number] [address] [place] [address], [place] [address] Nov, [facility] [address] [id number] [address] [place] [address], [place] [address] Nov, [facility] [address] [id number] [address] [place] [address], [place] [address] October, [facility] [address] [id number] [address] [place] [address], [place] [address] October, [facility] [address] [id number] [address] [place] [address], [place] [address] October, [facility] [address] [id number] [address] [place] [address], [place] [address] October, [facility] [address] [id number] [address] [place] [address], [place] [address] October, [facility] [address] [id number] [address] [place] [address], [place] [address] October, [facility] [address] [id number] [address] [place] [address], [place] [address] Sep, [facility] [address] [id number] [address] [place] [address], [place] [address] Sep, [facility] [address] [id number] [address] [place] [address], [place] [address] Sep, [facility] [address] [id number] [address] [place] [address], [place] [address] Sep, [facility] [address] [id number] [address] [place] [address], [place] [address] 19 Sep, 2012 [facility] [address] [id number] [address] [place] [address], [place] [address] 16 Sep, 2012 [facility] [address] [id number] [address] [place] [address], [place] [address] Sep, [facility] [address] [id number] [address] [place] [address], [place] [address] Sep, [facility] [address] [id number] [address] [place] [address], [place] [address] Sep, [facility] [address] [id number] [address] [place] [address], [place] [address] Sep, [facility] [address] [id number] [address] [place] [address], [place] [address] Sep, [facility] [address] [id number] [address] [place] [address], [place] [address] Aug, [facility] [address] [id number] [address] [place] [address], [place] [address] Aug, [facility] [address] [id number] [address] [place] [address], [place] [address] 25 Aug, 2012 [facility] [address] [id number] [address] [place] [address], [place] [address] Aug, [facility] [address] [id number] [address] [place] [address], [place] [address] 19 Aug, 2012 [facility] [address] [id number] [address] [place] [address], [place] [address] 18 Aug, 2012 [facility] [address] [id number] [address] [place] [address], [place] [address] 17 Aug, 2012 [facility] [address] [id number] [address] [place] [address], [place] [address] 15 Aug, 2012 [facility] [address] [id number] [address] [place] [address], [place] [address] 15 Aug, 2012 [facility] [address] [id number] [address] [place] [address], [place] [address] Aug, [facility] [address] [id number] [address] [place] [address], [place] [address] Aug, [facility] [address] [id number] [address] [place] [address], [place] [address] Aug, [facility] [address] [id number] [address] [place] [address], [place] [address] Jul, [facility] [address] [id number] [address] [place] [address], [place] [address] Jul, [facility] [address] [id number] [address] [place] [address], [place] [address] Jul, [facility] [address] [id number] [address] [place] [address], [place] [address] Jul, [facility] [address] [id number] [address] [place] [address], [place] [address] Jul, [facility] [address] [id number] [address] [place] [address], [place] [address] Jul, [facility] [address] [id number] [address] [place] [address], [place] [address] Jul, [facility] [address] [id number] [address] [place] [address], [place] [address] Jul, [facility] [address] [id number] [address] [place] [address], [place] [address] Jul, [facility] [address] [id number] [address] [place] [address], [place] [address] Jul, [facility] [address] [id number] [address] [place] [address], [place] [address] May, [facility] [address] [id number] [place] [id number] May, [facility] [address] [id number] [address] [place] [address] May, [facility] [address] [id number] [address] [place] [id number] May, [facility] [address] [id number] [address] [place] [id number] May, [facility] [address] [id number] [address] [place] [id number] Apr, [facility] [place] [address] [id number] [place] [id number] Apr, [facility] [address] [id number] [address] [place] [id number] Apr, [facility] [address] [id number] [address] [place] [address] Mar, [facility] [address] [id number] [place] [id number] Mar, [facility] [address] [id number] [address] [place] [id number] Mar, [facility] [address] [id number] [place] [id number] Feb, [facility] [address] [id number] [address] [place] [id number] Feb, [facility] [address] [id number] [address] [place] [id number] Feb, [facility] [address] [id number] [place] [id number] Feb, [facility] [address] [id number] [place] [id number] Feb, [facility] [place] [address] [id number] [place] [id number] Jan, [facility] [address] [id number] [address] [place] [phone] Jan, [facility] [place] [address] [id number] [place] [id number] Jan, [facility] [address] [id number] [place] [id number] Jan, [facility] [address] [id number] [place] [id number] Jan, [facility] [address] [facility] [id number] [address] [place] [address] Jan, [facility] [address] [facility] [id number] [address] [place] [phone] Jan, [facility] [address] [facility] [id number] [address] [place] [address] Aug, [facility] [address] [id number] [place] [id number] Aug, [facility] [address] [facility] [id number] [address] [place] [id number] Jul, [facility] [address] [facility] [id number] [address] [place] [phone] Jul, [facility] [address] [facility] [id number] [address] [place] [phone] Jul, [facility] [address] [id number] [place] [id number] Jul, 2011 [facility] [address] [facility] [id number] [address] [place] [id number] Jul, [facility] [address] [id number] [place] [id number] Jul, [facility] [address] [facility] [id number] [address] [place] [id number] Jul, [facility] [address] [id number] [place] [id number] Jul, [facility] [place] [address] [id number] [place] [id number] Jul, [facility] [address] [id number] [place] [id number] Jul, [facility] [address] [facility] [id number] [address] [place] [phone] May, [facility] [address] [id number] [address] [place] [phone] May, [facility] [address] [id number] [address] [place] [id number] May, [facility] [address] [id number] [address] [place] [id number] Apr, [facility] [address] [id number] [address] [place] [id number] Jan, [facility] [address] [id number] [address] [place] [phone] Jan, [facility] [address] [id number] [address] [place] [id number] Dec, [facility] [address] [id number] [address] [place] [id number] Dec, [facility] [address] [id number] [address] [place] [id number] May, [facility] [address] [id number] [address] [place] [id number] Mar, [facility] [address] [id number] [address] [place] [id number] Mar, [facility] [address] [id number] [address] [place] [id number] 14 Jan, 2009 IMMUNIZATIONS No Known Immunizations [...]
--- OUTSIDE RECORDS SUMMARY | 2020-01-28 13:07 | XMS REPORT ---
Author Author Heydi Candelario Doctor Organization [facility] Address Unknown Phone Unavailable Care Team Providers Care Rn Rehabilitation Name Role Phone Migration, Doctor Unavailable Unavailable PROBLEMS Type Condition ICD9-CM Code CMS62-GQ Code Onset Dates Condition S tatus SNOMED Code Problem Chronic pain syndrome G89.4 Active 059241279 Problem Sore throat J02.9 Active 69381749 3 Problem Choriocarcinoma C58 Active 1881 26755 Problem [facility] current use of anticoagulant Z79.01 Active 646666202 Problem History of venous thromboembolism V12.51 Active 575384125 Problem Cellulitis of unspecified part of limb L03.119 Active 187698496 Problem Gastroesophageal reflux disease without esophagitis K21.9 Active 574322390 Problem History of pulmonary embolism Z86.711 Active 817108389 Problem Pseudotumor cerebri G93.2 Active 28198096 Problem History of DVT (deep vein thrombosis) Z86.718 Active 060430250 ALLERGIES No Information ENCOUNTERS Encounter Location Date Diagnosis [place] [address] [place] [id number] [address] [place] [phone] 14 Nov, 2019 Encounter for screening labo ratory testing for COVID-19 virus Z11.59 [place] [address] [place] [id number] [address] [place] [phone] 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, 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 [place] [address] [facility] [id number] [address] [place] [address] Apr, [facility] current use of ant icoagulant Z79.01 [place] [address] [facility] [id number] [address] [place] [address] Apr, Cellulitis of unspecified pa rt of limb L03.119 ; Allergic contact dermatitis due to adhesives L23.1 and Chronic pain syndrome G89.4 [place] [address] [address] Apr, [facility] [address] [address] Apr, [facility] current use of ant icoagulant Z79.01 ; Cellulitis of unspecified part of limb L03.119 ; Chronic pain syndrome G89.4 and Anxiety F41.9 [place] [address] [address] Apr, [facility] [address] [address] Apr, [place] [address] [address] Mar, [place] [address] [address] Mar, [place] [address] [address] Mar, Sore throat J02.9 ; Gastroes ophageal reflux disease without esophagitis K21.9 ; Pseudotumor cerebri G93.2 ; Chronic pain syndrome G89.4 ; Choriocarcinoma C58 ; History of pulmonary embolism Z86.711 ; History of DVT (deep vein thrombosis) Z86.718 ; Anxiety F41.9 and Tachycardia R00.0 [place] [address] [place] [id number] [address] [place] [address] Feb, Anxiety 300.00 and Chronic p ain 338.29 [facility] [address] [place] [id number] [address] [place] [address] Feb, [facility] [address] [address] Feb, [facility] [address] [place] [id number] [address] [place] [address] Jan, 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.61 and Dysuria 788.1 [place] [address] [place] [id number] [address] [place] [address] Jan, Dysuria 788.1 [place] [address] [address] Jan, Anxiety 300.00 and Chronic p ain 338.29 [place] [address] [address] Jan, [place] [address] [address] Jan, [place] [address] [address] Jan, [place] [address] [address] Dec, Weakness 780.79 [place] [address] [address] Dec, 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.[address] [address] Dec, Palpitations 785.1 ; Tremor 781.0 ; Weakness 780.79 ; [facility] current use of anticoagulant therapy V58.61 and Yeast vaginitis 112.1 [place] [address] [place] [id number] [address] [place] [address] Dec, [place] [address] [address] Dec, Cervicalgia 723.1 ; Tachycar yoseph 785.0 ; Pseudotumor cerebri 348.2 and History of venous thromboembolism V12.51 [place] [address] [address] Nov, [place] [address] [place] [id number] [address] [place] [address] Nov, [place] [address] [place] [id number] [place] [address] 24 Nov, 2014 Tachycardia 785.0 ; Pseudotu mor cerebri 348.2 ; Anxiety 300.00 and History of venous thromboembolism V12.51 [facility] [address] [id number] [address] [place] [address] 19 Nov, 2014 [facility] [address] [id number] [address] [place] [address] 18 Nov, 2014 [facility] [address] [id number] [address] [place] [address] 16 Nov, 2014 [facility] [address] [id number] [address] [place] [address] Nov, [facility] [address] [facility] [id number] [address] [place] [address] Nov, [facility] [address] [facility] [id number] [address] [place] [address] Nov, [facility] [address] [id number] [address] [place] [address] Nov, [facility] [address] [facility] [id number] [address] [place] [address] October, [facility] [address] [facility] [id number] [address] [place] [address] October, [facility] [address] [facility] [id number] [address] [place] [address] October, Pain in thoracic spine 724.1 and Tachycardia 785.0 [facility] [address] [id number] [address] [place] [address] October, [facility] [address] [facility] [id number] [address] [place] [address] October, [facility] [address] [facility] [id number] [address] [place] [phone] 14 Sep, 2014 [facility] [address] [facility] [id number] [address] [place] [address] Sep, [facility] [address] [id number] [address] [place] [address], [place] [address] Aug, [facility] [address] [id number] [address] [place] [address], [place] [address] Aug, [facility] [address] [id number] [address] [place] [address], [place] [address] Aug, [facility] [address] [id number] [address] [place] [address], [place] [address] Aug, [facility] [address] [id number] [address] [place] [address], [place] [address] Aug, [facility] [address] [id number] [address] [place] [address], [place] [address] Aug, [facility] [address] [id number] [address] [place] [address], [place] [address] Aug, [facility] [address] [id number] [address] [place] [address], [place] [address] Aug, [facility] [address] [id number] [address] [place] [address], [place] [address] Aug, [facility] [address] [id number] [address] [place] [address], [place] [address] Aug, [facility] [address] [id number] [address] [place] [address], [place] [address] Aug, [facility] [address] [id number] [address] [place] [address], [place] [address] Aug, [facility] [address] [id number] [address] [place] [address], [place] [address] Jul, [facility] [address] [id number] [address] [place] [address], [place] [address] Jul, [facility] [address] [id number] [address] [place] [address], [place] [address] Jul, [facility] [address] [id number] [address] [place] [address], [place] [address] 23 Jul, 2014 [facility] [address] [id number] [address] [place] [address], [place] [address] 23 Jul, 2014 [facility] [address] [id number] [address] [place] [address], [place] [address] 23 Jul, 2014 [facility] [address] [id number] [address] [place] [address], [place] [address] 23 Jul, 2014 [facility] [address] [id number] [address] [place] [address], [place] [address] 23 Jul, 2014 [facility] [address] [id number] [address] [place] [address], [place] [address] 20 Jul, 2014 [facility] [address] [id number] [address] [place] [address], [place] [address] 20 Jul, 2014 [facility] [address] [id number] [address] [place] [phone] 19 Jul, 2014 [facility] [address] [id number] [address] [place] [address], [place] [address] 19 Jul, 2014 [facility] [address] [id number] [address] [place] [phone] 17 Jul, 2014 [facility] [address] [id number] [address] [place] [address] 17 Jul, 2014 [facility] [address] [id number] [address] [place] [phone] 16 Jul, 2014 [facility] [address] [id number] [address] [place] [address], [place] [address] 16 Jul, 2014 [facility] [address] [id number] [address] [place] [address] 16 Jul, 2014 [facility] [address] [id number] [address] [place] [address] 16 Jul, 2014 [facility] [address] [id number] [address] [place] [address], [place] [address] 13 Jul, 2014 [facility] [address] [id number] [address] [place] [address], [place] [address] Jul, 2014 [facility] [address] [id number] [address] [place] [address], [place] [address] Jul, 2014 [facility] [address] [id number] [address] [place] [address], [place] [address] Jul, 2014 [facility] [address] [id number] [address] [place] [address], [place] [address] Jul, 2014 [facility] [address] [id number] [address] [place] [address], [place] [address] Jul, [facility] [address] [id number] [address] [place] [address], [place] [address] Jul, 2014 [facility] [address] [id number] [address] [place] [address], [place] [address] Jul, [facility] [address] [id number] [address] [place] [address], [place] [address] Jul, [facility] [address] [id number] [address] [place] [address], [place] [address] Jul, [facility] [address] [id number] [address] [place] [address] Jul, [facility] [address] [id number] [address] [place] [address] Jul, [facility] [address] [id number] [address] [place] [address], [place] [address] Jun, [facility] [address] [id number] [address] [place] [address] Jun, [facility] [address] [id number] [address] [place] [address] Jun, [facility] [address] [id number] [address] [place] [address] Jun, [facility] [address] [id number] [address] [place] [address], [place] [address] Jun, [facility] [address] [id number] [address] [place] [address], [place] [address] Jun, [facility] [address] [id number] [address] [place] [address], [place] [address] Jun, [facility] [address] [id number] [address] [place] [address], [place] [address] Jun, [facility] [address] [id number] [address] [place] [address], [place] [address] Jun, [facility] [address] [id number] [address] [place] [address], [place] [address] Jun, [facility] [address] [id number] [address] [place] [address], [place] [address] Jun, [facility] [address] [id number] [address] [place] [address], [place] [address] Jun, [facility] [address] [id number] [address] [place] [address], [place] [address] Jun, [facility] [address] [id number] [address] [place] [address], [place] [address] Jun, [facility] [address] [id number] [address] [place] [address], [place] [address] Jun, [facility] [address] [id number] [address] [place] [address], [place] [address] Jun, [facility] [address] [id number] [address] [place] [address], [place] [address] Jun, [facility] [address] [id number] [address] [place] [address], [place] [address] Jun, [facility] [address] [id number] [address] [place] [address], [place] [address] Jun, [facility] [address] [id number] [address] [place] [address], [place] [address] Jun, [facility] [address] [id number] [address] [place] [address], [place] [address] May, [facility] [address] [id number] [address] [place] [address], [place] [address] May, [facility] [address] [id number] [address] [place] [address], [place] [address] May, [facility] [address] [id number] [address] [place] [address], [place] [address] May, [facility] [address] [id number] [address] [place] [address], [place] [address] May, [facility] [address] [id number] [address] [place] [address], [place] [address] May, [facility] [address] [id number] [address] [place] [address], [place] [address] May, [facility] [address] [id number] [address] [place] [address], [place] [address] May, [facility] [address] [id number] [address] [place] [address], [place] [address] May, [facility] [address] [id number] [address] [place] [address], [place] [address] May, [facility] [address] [id number] [address] [place] [address], [place] [address] May, [facility] [address] [id number] [address] [place] [address], [place] [address] 18 May, 2014 [facility] [address] [id number] [address] [place] [address], [place] [address] 18 May, 2014 [facility] [address] [id number] [address] [place] [address], [place] [address] 17 May, 2014 [facility] [address] [id number] [address] [place] [address], [place] [address] 16 May, 2014 [facility] [address] [id number] [facility] [place] [address] 16 May, 2014 [facility] [address] [id number] [facility] [place] [address] 15 May, 2014 [facility] [address] [id number] [address] [place] [address], [place] [address] 15 May, 2014 [facility] [address] [id number] [address] [place] [address], [place] [address] May, [facility] [address] [id number] [address] [place] [address], [place] [address] May, [facility] [address] [id number] [address] [place] [address], [place] [address] May, [facility] [address] [id number] [address] [place] [address], [place] [address] May, [facility] [address] [id number] [address] [place] [address], [place] [address] May, [facility] [address] [id number] [address] [place] [address], [place] [address] May, [facility] [address] [id number] [address] [place] [address], [place] [address] May, [facility] [address] [id number] [address] [place] [address], [place] [address] May, [facility] [address] [id number] [address] [place] [address], [place] [address] May, [facility] [address] [id number] [address] [place] [address], [place] [address] May, [facility] [address] [id number] [address] [place] [address], [place] [address] May, [facility] [address] [id number] [address] [place] [address], [place] [address] May, [facility] [address] [id number] [address] [place] [address], [place] [address] 05 May, 2014 [facility] [address] [id number] [address] [place] [address], [place] [address] May, [facility] [address] [id number] [address] [place] [address], [place] [address] May, [facility] [address] [id number] [address] [place] [address], [place] [address] May, [facility] [address] [id number] [address] [place] [address], [place] [address] Apr, [facility] [address] [id number] [address] [place] [address], [place] [address] Apr, [facility] [address] [id number] [address] [place] [address], [place] [address] Apr, [facility] [address] [id number] [address] [place] [address], [place] [address] Apr, [facility] [address] [id number] [address] [place] [address], [place] [address] Apr, [facility] [address] [id number] [address] [place] [address], [place] [address] Apr, [facility] [address] [id number] [address] [place] [address], [place] [address] Apr, [facility] [address] [id number] [address] [place] [address], [place] [address] Apr, [facility] [address] [id number] [address] [place] [address], [place] [address] Apr, [facility] [address] [id number] [address] [place] [address], [place] [address] Apr, [facility] [address] [id number] [address] [place] [address], [place] [address] Mar, [facility] [address] [id number] [address] [place] [address], [place] [address] Mar, [facility] [address] [id number] [address] [place] [address], [place] [address] 31 Mar, 2013 [facility] [address] [id number] [address] [place] [address], [place] [address] Mar, 2013 [facility] [address] [id number] [address] [place] [address], [place] [address] 30 Mar, 2014 [facility] [address] [id number] [address] [place] [address], [place] [address] 30 Mar, 2014 [facility] [address] [id number] [address] [place] [address], [place] [address] Mar, [facility] [address] [id number] [address] [place] [address], [place] [address] Mar, [facility] [address] [id number] [address] [place] [address], [place] [address] Mar, [facility] [address] [id number] [address] [place] [address], [place] [address] Mar, [facility] [address] [id number] [address] [place] [address], [place] [address] Mar, [facility] [address] [id number] [address] [place] [address], [place] [address] Mar, [facility] [address] [id number] [address] [place] [address], [place] [address] Mar, [facility] [address] [id number] [address] [place] [address], [place] [address] Mar, [facility] [address] [id number] [address] [place] [address], [place] [address] Mar, [facility] [address] [id number] [address] [place] [address], [place] [address] Mar, [facility] [address] [id number] [address] [place] [address], [place] [address] Mar, [facility] [address] [id number] [address] [place] [address] Mar, [facility] [address] [id number] [address] [place] [address], [place] [address] Mar, [facility] [address] [id number] [address] [place] [address], [place] [address] Mar, [facility] [address] [id number] [address] [place] [address], [place] [address] 05 Sep, 2013 [facility] [address] [id number] [address] [place] [address], [place] [address] 05 Sep, 2013 [facility] [address] [id number] [address] [place] [address], [place] [address] 04 Feb, 2013 [facility] [address] [id number] [address] [place] [address], [place] [address] 04 Feb, 2013 [facility] [address] [id number] [address] [place] [address], [place] [address] Feb, 2013 [facility] [address] [id number] [address] [place] [address], [place] [address] Feb, 2013 [facility] [address] [id number] [address] [place] [address], [place] [address] Feb, 2013 [facility] [address] [id number] [address] [place] [address], [place] [address] Feb, 2013 [facility] [address] [id number] [address] [place] [address], [place] [address] Feb, 2013 [facility] [address] [id number] [address] [place] [address], [place] [address] Feb, 2013 [facility] [address] [id number] [address] [place] [address], [place] [address] Jan, [facility] [address] [id number] [address] [place] [address], [place] [address] Jan, [facility] [address] [id number] [address] [place] [address], [place] [address] Jan, [facility] [address] [id number] [facility] [place] [address] Jan, [facility] [address] [id number] [facility] [place] [address] Jan, [facility] [address] [id number] [facility] [place] [address] Jan, [facility] [address] [id number] [address] [place] [address], [place] [address] Jan, [facility] [address] [id number] [address] [place] [address], [place] [address] Jan, [facility] [address] [id number] [address] [place] [address], [place] [address] Jan, [facility] [address] [id number] [address] [place] [address], [place] [address] Jan, [facility] [address] [id number] [address] [place] [address], [place] [address] Jan, [facility] [address] [id number] [address] [place] [address], [place] [address] Jan, [facility] [address] [id number] [address] [place] [place] [address], [place] [address] Dec, [facility] [address] [id number] [address] [place] [address], [place] [address] Dec, [facility] [address] [id number] [address] [place] [address], [place] [address] Dec, [facility] [address] [id number] [address] [place] [address], [place] [address] Dec, [facility] [address] [id number] [address] [place] [address], [place] [address] Dec, [facility] [address] [id number] [address] [place] [address], [place] [address] Dec, [facility] [address] [id number] [address] [place] [address], [place] [address] Dec, [facility] [address] [id number] [address] [place] [address], [place] [address] Dec, 2013 [facility] [address] [id number] [address] [place] [address], [place] [address] Dec, [facility] [address] [id number] [address] [place] [address], [place] [address] Dec, [facility] [address] [id number] [address] [place] [address], [place] [address] Dec, [facility] [address] [id number] [address] [place] [address], [place] [address] Dec, [facility] [address] [id number] [address] [place] [address], [place] [address] Nov, [facility] [address] [id number] [address] [place] [address], [place] [address] Nov, [facility] [address] [id number] [address] [place] [address], [place] [address] Nov, [facility] [address] [id number] [address] [place] [address], [place] [address] Nov, [facility] [address] [id number] [address] [place] [address], [place] [address] Nov, [facility] [address] [id number] [address] [place] [address], [place] [address] Nov, [facility] [address] [id number] [address] [place] [address], [place] [address] Nov, [facility] [address] [id number] [address] [place] [address], [place] [address] Nov, [facility] [address] [id number] [address] [place] [address], [place] [address] Nov, [facility] [address] [id number] [address] [place] [address], [place] [address] Nov, [facility] [address] [id number] [address] [place] [address], [place] [address] Nov, [facility] [address] [id number] [address] [place] [address], [place] [address] Nov, [facility] [address] [id number] [address] [place] [address], [place] [address] Nov, [facility] [address] [id number] [address] [place] [address], [place] [address] Nov, [facility] [address] [id number] [address] [place] [address], [place] [address] October, [facility] [address] [id number] [address] [place] [address], [place] [address] October, [facility] [address] [id number] [address] [place] [address], [place] [address] October, [facility] [address] [id number] [address] [place] [address], [place] [address] October, [facility] [address] [id number] [address] [place] [address], [place] [address] October, [facility] [address] [id number] [address] [place] [address], [place] [address] October, [facility] [address] [id number] [address] [place] [address], [place] [address] October, [facility] [address] [id number] [address] [place] [address], [place] [address] October, [facility] [address] [id number] [address] [place] [address], [place] [address] October, [facility] [address] [id number] [address] [place] [address], [place] [address] October, [facility] [address] [id number] [address] [place] [address], [place] [address] October, [facility] [address] [id number] [address] [place] [address], [place] [address] October, [facility] [address] [id number] [facility] [place] [address] Sep, [facility] [address] [id number] [facility] [place] [address] Sep, [facility] [address] [id number] [facility] [place] [address] Sep, [facility] [address] [id number] [address] [place] [address], [place] [address] Sep, [facility] [address] [id number] [address] [place] [address], [place] [address] Sep, [facility] [address] [id number] [address] [place] [address], [place] [address] Sep, [facility] [address] [id number] [address] [place] [address], [place] [address] Aug, [facility] [address] [id number] [address] [place] [address], [place] [address] Aug, [facility] [address] [id number] [address] [place] [address], [place] [address] Aug, [facility] [address] [id number] [address] [place] [address], [place] [address] Aug, [facility] [address] [id number] [address] [place] [address], [place] [address] Aug, [facility] [address] [id number] [address] [place] [address], [place] [address] Aug, [facility] [address] [id number] [address] [place] [address], [place] [address] Jul, [facility] [address] [id number] [address] [place] [address], [place] [address] Jul, [facility] [address] [id number] [address] [place] [address], [place] [address] Jul, [facility] [address] [id number] [address] [place] [address], [place] [address] Jul, [facility] [address] [id number] [address] [place] [address], [place] [address] Jul, [facility] [address] [id number] [address] [place] [address], [place] [address] Jul, [facility] [address] [id number] [address] [place] [address], [place] [address] Jul, [facility] [address] [id number] [address] [place] [address], [place] [address] Jul, [facility] [address] [id number] [address] [place] [address], [place] [address] Jul, [facility] [address] [id number] [address] [place] [address], [place] [address] Jul, [facility] [address] [id number] [address] [place] [address], [place] [address] Jun, [facility] [address] [id number] [address] [place] [address], [place] [address] Jun, [facility] [address] [id number] [address] [place] [address], [place] [address] Jun, [facility] [address] [id number] [address] [place] [address], [place] [address] Jun, [facility] [address] [id number] [address] [place] [address], [place] [address] Jun, [facility] [address] [id number] [address] [place] [address], [place] [address] Jun, [facility] [address] [id number] [address] [place] [address], [place] [address] Jun, [facility] [address] [id number] [address] [place] [address], [place] [address] Jun, [facility] [address] [id number] [address] [place] [address], [place] [address] May, [facility] [address] [id number] [address] [place] [address], [place] [address] May, [facility] [address] [id number] [address] [place] [address], [place] [address] May, [facility] [address] [id number] [address] [place] [address], [place] [address] May, [facility] [address] [id number] [address] [place] [address], [place] [address] May, [facility] [address] [id number] [address] [place] [address], [place] [address] May, [facility] [address] [id number] [address] [place] [address], [place] [address] May, [facility] [address] [id number] [address] [place] [address], [place] [address] May, [facility] [address] [id number] [address] [place] [address], [place] [address] Apr, [facility] [address] [id number] [address] [place] [address], [place] [address] Apr, [facility] [address] [id number] [address] [place] [address], [place] [address] Apr, [facility] [address] [id number] [address] [place] [address], [place] [address] Apr, [facility] [address] [id number] [address] [place] [address], [place] [address] Apr, [facility] [address] [id number] [address] [place] [address], [place] [address] Apr, [facility] [address] [id number] [address] [place] [address], [place] [address] Mar, [facility] [address] [id number] [address] [place] [address], [place] [address] Mar, [facility] [address] [id number] [address] [place] [address], [place] [address] Mar, [facility] [address] [id number] [address] [place] [address], [place] [address] Mar, [facility] [address] [id number] [address] [place] [address], [place] [address] Mar, [facility] [address] [id number] [address] [place] [address], [place] [address] Mar, [facility] [address] [id number] [address] [place] [address], [place] [address] Mar, [facility] [address] [id number] [address] [place] [address], [place] [address] 30 Feb, 2013 [facility] [address] [id number] [address] [place] [address], [place] [address] 30 Feb, 2013 [facility] [address] [id number] [address] [place] [address], [place] [address] Feb, [facility] [address] [id number] [address] [place] [address], [place] [address] Feb, [facility] [address] [id number] [address] [place] [address], [place] [address] Feb, [facility] [address] [id number] [address] [place] [address], [place] [address] Feb, [facility] [address] [id number] [address] [place] [address], [place] [address] Jan, [facility] [address] [id number] [address] [place] [address], [place] [address] Jan, [facility] [address] [id number] [address] [place] [address], [place] [address] Jan, [facility] [address] [id number] [address] [place] [address], [place] [address] Jan, [facility] [address] [id number] [address] [place] [address], [place] [address] Jan, [facility] [address] [id number] [address] [place] [address], [place] [address] Jan, [facility] [address] [id number] [address] [place] [address], [place] [address] Jan, [facility] [address] [id number] [address] [place] [address], [place] [address] Jan, [facility] [address] [id number] [address] [place] [address], [place] [address] Jan, [facility] [address] [id number] [address] [place] [address], [place] [address] Dec, [facility] [address] [id number] [address] [place] [address], [place] [address] Dec, [facility] [address] [id number] [address] [place] [address], [place] [address] Dec, [facility] [address] [id number] [address] [place] [address], [place] [address] Dec, [facility] [address] [id number] [address] [place] [address], [place] [address] Dec, [facility] [address] [id number] [address] [place] [address], [place] [address] Dec, [facility] [address] [id number] [address] [place] [address], [place] [address] Dec, [facility] [address] [id number] [address] [place] [address], [place] [address] Dec, [facility] [address] [id number] [address] [place] [address], [place] [address] Dec, [facility] [address] [id number] [address] [place] [address], [place] [address] Dec, [facility] [address] [id number] [address] [place] [address], [place] [address] Dec, [facility] [address] [id number] [address] [place] [address], [place] [address] Dec, [facility] [address] [id number] [address] [place] [address], [place] [address] Dec, [facility] [address] [id number] [address] [place] [address], [place] [address] Nov, [facility] [address] [id number] [address] [place] [address], [place] [address] Nov, [facility] [address] [id number] [address] [place] [address], [place] [address] Nov, [facility] [address] [id number] [address] [place] [address], [place] [address] Nov, [facility] [address] [id number] [address] [place] [address], [place] [address] October, [facility] [address] [id number] [address] [place] [address], [place] [address] October, [facility] [address] [id number] [address] [place] [address], [place] [address] October, [facility] [address] [id number] [address] [place] [address], [place] [address] October, [facility] [address] [id number] [address] [place] [address], [place] [address] October, [facility] [address] [id number] [address] [place] [address], [place] [address] October, [facility] [address] [id number] [address] [place] [address], [place] [address] Sep, [facility] [address] [id number] [address] [place] [address], [place] [address] Sep, [facility] [address] [id number] [address] [place] [address], [place] [address] Sep, [facility] [address] [id number] [address] [place] [address], [place] [address] Sep, [facility] [address] [id number] [address] [place] [address], [place] [address] 19 Sep, 2012 [facility] [address] [id number] [address] [place] [address], [place] [address] 16 Sep, 2012 [facility] [address] [id number] [address] [place] [address], [place] [address] Sep, [facility] [address] [id number] [address] [place] [address], [place] [address] Sep, [facility] [address] [id number] [address] [place] [address], [place] [address] Sep, [facility] [address] [id number] [address] [place] [address], [place] [address] Sep, [facility] [address] [id number] [address] [place] [address], [place] [address] Sep, [facility] [address] [id number] [address] [place] [address], [place] [address] Aug, [facility] [address] [id number] [address] [place] [address], [place] [address] Aug, [facility] [address] [id number] [address] [place] [address], [place] [address] 25 Aug, 2012 [facility] [address] [id number] [address] [place] [address], [place] [address] Aug, [facility] [address] [id number] [address] [place] [address], [place] [address] 19 Aug, 2012 [facility] [address] [id number] [address] [place] [address], [place] [address] 18 Aug, 2012 [facility] [address] [id number] [address] [place] [address], [place] [address] 17 Aug, 2012 [facility] [address] [id number] [address] [place] [address], [place] [address] 15 Aug, 2012 [facility] [address] [id number] [address] [place] [address], [place] [address] 15 Aug, 2012 [facility] [address] [id number] [address] [place] [address], [place] [address] Aug, [facility] [address] [id number] [address] [place] [address], [place] [address] Aug, [facility] [address] [id number] [address] [place] [address], [place] [address] Aug, [facility] [address] [id number] [address] [place] [address], [place] [address] Jul, [facility] [address] [id number] [address] [place] [address], [place] [address] Jul, [facility] [address] [id number] [address] [place] [address], [place] [address] Jul, [facility] [address] [id number] [address] [place] [address], [place] [address] Jul, [facility] [address] [id number] [address] [place] [address], [place] [address] Jul, [facility] [address] [id number] [address] [place] [address], [place] [address] Jul, [facility] [address] [id number] [address] [place] [address], [place] [address] Jul, [facility] [address] [id number] [address] [place] [address], [place] [address] Jul, [facility] [address] [id number] [address] [place] [address], [place] [address] Jul, [facility] [address] [id number] [address] [place] [address], [place] [address] Jul, [facility] [address] [id number] [address] [place] [address], [place] [address] May, [facility] [address] [id number] [place] [id number] May, [facility] [address] [id number] [address] [address] May, [facility] [address] [id number] [address] [place] [id number] May, [facility] [address] [id number] [address] [place] [address] May, [facility] [address] [id number] [address] [place] [address] Apr, [facility] [address] [id number] [place] [id number] Apr, [facility] [address] [id number] [address] [place] [address] Apr, [facility] [address] [id number] [address] [place] [address] Mar, [facility] [address] [id number] [place] [id number] Mar, [facility] [address] [id number] [address] [place] [id number] Mar, [facility] [address] [id number] [place] [id number] Feb, [facility] [address] [id number] [address] [place] [address] Feb, [facility] [address] [id number] [address] [place] [address] Feb, [facility] [address] [id number] [place] [id number] Feb, [facility] [address] [id number] [place] [id number] Feb, [facility] [address] [id number] [place] [id number] Jan, [facility] [address] [id number] [address] [place] [address] Jan, [facility] [address] [id number] [place] [id number] Jan, [facility] [place] [address] [id number] [place] [id number] Jan, [facility] [address] [id number] [place] [id number] Jan, [facility] [address] [facility] [id number] [address] [address] Jan, [facility] [address] [facility] [id number] [address] [place] [address] Jan, [facility] [address] [facility] [id number] [address] [place] [id number] Aug, [facility] [place] [address] [id number] [place] [id number] Aug, [facility] [address] [facility] [id number] [address] [place] [id number] Jul, [facility] [address] [facility] [id number] [address] [place] [address] Jul, [facility] [address] [facility] [id number] [address] [place] [address] Jul, [facility] [address] [id number] [place] [id number] Jul, 2011 [facility] [address] [facility] [id number] [address] [place] [id number] Jul, [facility] [address] [id number] [place] [id number] Jul, [facility] [address] [facility] [id number] [address] [place] [id number] Jul, [facility] [address] [id number] [place] [id number] Jul, [facility] [address] [id number] [place] [id number] Jul, [facility] [address] [id number] [place] [id number] Jul, [facility] [address] [facility] [id number] [address] [place] [address] May, [facility] [address] [id number] [address] [place] [id number] May, [facility] [address] [id number] [address] [place] [id number] May, [facility] [address] [id number] [address] [place] [id number] Apr, [facility] [address] [id number] [address] [place] [id number] Jan, [facility] [address] [id number] [address] [place] [id number] Jan, [facility] [address] [id number] [address] [place] [phone] Dec, [facility] [address] [id number] [address] [place] [phone] Dec, [facility] [address] [id number] [address] [place] [id number] May, [facility] [address] [id number] [address] [place] [id number] Mar, [facility] [address] [id number] [address] [place] [id number] Mar, [facility] [address] [id number] [address] [place] [phone] 14 Jan, 2009 IMMUNIZATIONS No Known Immunizations SOCIAL HISTORY Never Assessed REASON FOR VISIT PLAN OF CARE VITAL SIGNS MEDICATIONS Unknown Medications RESULTS No Results PROCEDURES Procedure Date Ordered Result Body Site PROTHROMBIN TIME October 19, 2012 INSTRUCTIONS MEDICATIONS ADMINISTERED No Known Medications [...]
--- OUTSIDE RECORDS SUMMARY | 2020-01-28 13:07 | XMS REPORT ---
Author Author Heydi Candelario Doctor Organization [facility] Address Unknown Phone Unavailable Care Team Providers Care Dry Pan Feeder Name Role Phone Migration, Doctor Unavailable Unavailable PROBLEMS Type Condition ICD9-CM Code [id number] Code Onset Dates Condition S tatus SNOMED Code Problem Chronic pain syndrome G89.4 Active 313220544 Problem Sore throat J02.9 Active 13009974 3 Problem Choriocarcinoma C58 Active 1881 31071 Problem senior living current use of anticoagulant Z79.01 Active 567797613 Problem History of venous thromboembolism V12.51 Active 072378362 Problem Cellulitis of unspecified part of limb L03.119 Active 186100165 Problem Gastroesophageal reflux disease without esophagitis K21.9 Active 491900051 Problem History of pulmonary embolism Z86.711 Active 481781208 Problem Pseudotumor cerebri G93.2 Active 89044762 Problem History of DVT (deep vein thrombosis) Z86.718 Active 683528326 ALLERGIES No Information ENCOUNTERS Encounter Location Date Diagnosis [place] [address] [place] [id number] [address] [place] [address] 14 Nov, 2019 Encounter for screening labo ratory testing for COVID-19 virus Z11.59 [place] [address] [place] [id number] [address] [place] [address] Apr, 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 Z79.01 [place] [address] [facility] [id number] [address] [place] [address] Apr, senior living current use of ant icoagulant Z79.01 [place] [address] [facility] [id number] [address] [place] [address] Apr, Cellulitis of unspecified pa rt of limb L03.119 ; Allergic contact dermatitis due to adhesives L23.1 and Chronic pain syndrome G89.4 [place] [address] [address] Apr, [facility] [address] [address] Apr, senior living current use of ant icoagulant Z79.01 ; Cellulitis of unspecified part of limb L03.119 ; Chronic pain syndrome G89.4 and Anxiety F41.9 [place] [address] [address] Apr, [facility] [address] [address] Apr, [place] [address] [address] Mar, [place] [address] [address] Mar, [place] [address] [address] Mar, Sore throat J02.9 ; Gastroes ophageal reflux disease without esophagitis K21.9 ; Pseudotumor cerebri G93.2 ; Chronic pain syndrome G89.4 ; Choriocarcinoma C58 ; History of pulmonary embolism Z86.711 ; History of DVT (deep vein thrombosis) Z86.718 ; Anxiety F41.9 and Tachycardia R00.0 [place] [address] [place] [id number] [address] [place] [address] Feb, Anxiety 300.00 and Chronic p ain 338.29 [facility] [address] [place] [id number] [address] [place] [address] Feb, [facility] [address] [address] Feb, [facility] [address] [place] [id number] [address] [place] [address] Jan, 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 use of ant icoagulant therapy V58.61 and Dysuria 788.1 [place] [address] [place] [id number] [address] [place] [address] Jan, Dysuria 788.1 [place] [address] [address] Jan, Anxiety 300.00 and Chronic p ain 338.29 [place] [address] [address] Jan, [place] [address] [address] Jan, [place] [address] [address] Jan, [place] [address] [address] Dec, Weakness 780.79 [place] [address] [address] Dec, 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 use of ant icoagulant therapy V58.[address] [address] Dec, Palpitations 785.1 ; Tremor 781.0 ; Weakness 780.79 ; senior living current use of anticoagulant therapy V58.61 and Yeast vaginitis 112.1 [place] [address] [place] [id number] [address] [place] [address] Dec, [place] [address] [address] Dec, Cervicalgia 723.1 ; Tachycar yoseph 785.0 ; Pseudotumor cerebri 348.2 and History of venous thromboembolism V12.51 [place] [address] [address] Nov, [place] [address] [place] [id number] [address] [place] [address] Nov, [place] [address] [place] [id number] [place] [address] 24 Nov, 2014 Tachycardia 785.0 ; Pseudotu mor cerebri 348.2 ; Anxiety 300.00 and History of venous thromboembolism V12.51 [facility] [address] [id number] [address] [place] [address] 19 Nov, 2014 [facility] [address] [id number] [address] [place] [address] 18 Nov, 2014 [facility] [address] [id number] [address] [place] [address] 16 Nov, 2014 [facility] [address] [id number] [address] [place] [address] Nov, [facility] [address] [facility] [id number] [address] [place] [address] Nov, [facility] [address] [facility] [id number] [address] [place] [address] Nov, [facility] [address] [id number] [address] [place] [address] Nov, [facility] [address] [facility] [id number] [address] [place] [address] October, [facility] [address] [facility] [id number] [address] [place] [address] October, [facility] [address] [facility] [id number] [address] [place] [address] October, Pain in thoracic spine 724.1 and Tachycardia 785.0 [facility] [address] [id number] [address] [place] [address] October, [facility] [address] [facility] [id number] [address] [place] [address] October, [facility] [address] [facility] [id number] [address] [place] [address] 14 Sep, 2014 [facility] [address] [facility] [id number] [address] [place] [address] Sep, [facility] [address] [id number] [address] [place] [address], [place] [address] Aug, [facility] [address] [id number] [address] [place] [address], [place] [address] Aug, [facility] [address] [id number] [address] [place] [address], [place] [address] Aug, [facility] [address] [id number] [address] [place] [address], [place] [address] Aug, [facility] [address] [id number] [address] [place] [address], [place] [address] Aug, [facility] [address] [id number] [address] [place] [address], [place] [address] Aug, [facility] [address] [id number] [address] [place] [address], [place] [address] Aug, [facility] [address] [id number] [address] [place] [address], [place] [address] Aug, [facility] [address] [id number] [address] [place] [address], [place] [address] Aug, [facility] [address] [id number] [address] [place] [address], [place] [address] Aug, [facility] [address] [id number] [address] [place] [address], [place] [address] Aug, [facility] [address] [id number] [address] [place] [address], [place] [address] Aug, [facility] [address] [id number] [address] [place] [address], [place] [address] Jul, [facility] [address] [id number] [address] [place] [address], [place] [address] Jul, [facility] [address] [id number] [address] [place] [address], [place] [address] Jul, [facility] [address] [id number] [address] [place] [address], [place] [address] 23 Jul, 2014 [facility] [address] [id number] [address] [place] [address], [place] [address] 23 Jul, 2014 [facility] [address] [id number] [address] [place] [address], [place] [address] 23 Jul, 2014 [facility] [address] [id number] [address] [place] [address], [place] [address] 23 Jul, 2014 [facility] [address] [id number] [address] [place] [address], [place] [address] 23 Jul, 2014 [facility] [address] [id number] [address] [place] [address], [place] [address] 20 Jul, 2014 [facility] [address] [id number] [address] [place] [address], [place] [address] 20 Jul, 2014 [facility] [address] [id number] [address] [place] [address] 19 Jul, 2014 [facility] [address] [id number] [address] [place] [address], [place] [address] 19 Jul, 2014 [facility] [address] [id number] [address] [place] [address] 17 Jul, 2014 [facility] [address] [id number] [address] [place] [address] 17 Jul, 2014 [facility] [address] [id number] [address] [place] [address] 16 Jul, 2014 [facility] [address] [id number] [address] [place] [address], [place] [address] 16 Jul, 2014 [facility] [address] [id number] [address] [place] [address] 16 Jul, 2014 [facility] [address] [id number] [address] [place] [address] 16 Jul, 2014 [facility] [address] [id number] [address] [place] [address], [place] [address] 13 Jul, 2014 [facility] [address] [id number] [address] [place] [address], [place] [address] Jul, 2014 [facility] [address] [id number] [address] [place] [address], [place] [address] Jul, 2014 [facility] [address] [id number] [address] [place] [address], [place] [address] Jul, 2014 [facility] [address] [id number] [address] [place] [address], [place] [address] Jul, 2014 [facility] [address] [id number] [address] [place] [address], [place] [address] Jul, [facility] [address] [id number] [address] [place] [address], [place] [address] Jul, 2014 [facility] [address] [id number] [address] [place] [address], [place] [address] Jul, [facility] [address] [id number] [address] [place] [address], [place] [address] Jul, [facility] [address] [id number] [address] [place] [address], [place] [address] Jul, [facility] [address] [id number] [address] [place] [address] Jul, [facility] [address] [id number] [address] [place] [address] Jul, [facility] [address] [id number] [address] [place] [address], [place] [address] Jun, [facility] [address] [id number] [address] [place] [address] Jun, [facility] [address] [id number] [address] [place] [address] Jun, [facility] [address] [id number] [address] [place] [address] Jun, [facility] [address] [id number] [address] [place] [address], [place] [address] Jun, [facility] [address] [id number] [address] [place] [address], [place] [address] Jun, [facility] [address] [id number] [address] [place] [address], [place] [address] Jun, [facility] [address] [id number] [address] [place] [address], [place] [address] Jun, [facility] [address] [id number] [address] [place] [address], [place] [address] Jun, [facility] [address] [id number] [address] [place] [address], [place] [address] Jun, [facility] [address] [id number] [address] [place] [address], [place] [address] Jun, [facility] [address] [id number] [address] [place] [address], [place] [address] Jun, [facility] [address] [id number] [address] [place] [address], [place] [address] Jun, [facility] [address] [id number] [address] [place] [address], [place] [address] Jun, [facility] [address] [id number] [address] [place] [address], [place] [address] Jun, [facility] [address] [id number] [address] [place] [address], [place] [address] Jun, [facility] [address] [id number] [address] [place] [address], [place] [address] Jun, [facility] [address] [id number] [address] [place] [address], [place] [address] Jun, [facility] [address] [id number] [address] [place] [address], [place] [address] Jun, [facility] [address] [id number] [address] [place] [address], [place] [address] Jun, [facility] [address] [id number] [address] [place] [address], [place] [address] May, [facility] [address] [id number] [address] [place] [address], [place] [address] May, [facility] [address] [id number] [address] [place] [address], [place] [address] May, [facility] [address] [id number] [address] [place] [address], [place] [address] May, [facility] [address] [id number] [address] [place] [address], [place] [address] May, [facility] [address] [id number] [address] [place] [address], [place] [address] May, [facility] [address] [id number] [address] [place] [address], [place] [address] May, [facility] [address] [id number] [address] [place] [address], [place] [address] May, [facility] [address] [id number] [address] [place] [address], [place] [address] May, [facility] [address] [id number] [address] [place] [address], [place] [address] May, [facility] [address] [id number] [address] [place] [address], [place] [address] May, [facility] [address] [id number] [address] [place] [address], [place] [address] 18 May, 2014 [facility] [address] [id number] [address] [place] [address], [place] [address] 18 May, 2014 [facility] [address] [id number] [address] [place] [address], [place] [address] 17 May, 2014 [facility] [address] [id number] [address] [place] [address], [place] [address] 16 May, 2014 [facility] [address] [id number] [facility] [place] [address] 16 May, 2014 [facility] [address] [id number] [facility] [address] 15 May, 2014 [facility] [address] [id number] [address] [place] [address], [place] [address] 15 May, 2014 [facility] [address] [id number] [address] [place] [address], [place] [address] May, [facility] [address] [id number] [address] [place] [address], [place] [address] May, [facility] [address] [id number] [address] [place] [address], [place] [address] May, [facility] [address] [id number] [address] [place] [address], [place] [address] May, [facility] [address] [id number] [address] [place] [address], [place] [address] May, [facility] [address] [id number] [address] [place] [address], [place] [address] May, [facility] [address] [id number] [address] [place] [address], [place] [address] May, [facility] [address] [id number] [address] [place] [address], [place] [address] May, [facility] [address] [id number] [address] [place] [address], [place] [address] May, [facility] [address] [id number] [address] [place] [address], [place] [address] May, [facility] [address] [id number] [address] [place] [address], [place] [address] May, [facility] [address] [id number] [address] [place] [address], [place] [address] May, [facility] [address] [id number] [address] [place] [address], [place] [address] 05 May, 2014 [facility] [address] [id number] [address] [place] [address], [place] [address] May, [facility] [address] [id number] [address] [place] [address], [place] [address] May, [facility] [address] [id number] [address] [place] [address], [place] [address] May, [facility] [address] [id number] [address] [place] [address], [place] [address] Apr, [facility] [address] [id number] [address] [place] [address], [place] [address] Apr, [facility] [address] [id number] [address] [place] [address], [place] [address] Apr, [facility] [address] [id number] [address] [place] [address], [place] [address] Apr, [facility] [address] [id number] [address] [place] [address], [place] [address] Apr, [facility] [address] [id number] [address] [place] [address], [place] [address] Apr, [facility] [address] [id number] [address] [place] [address], [place] [address] Apr, [facility] [address] [id number] [address] [place] [address], [place] [address] Apr, [facility] [address] [id number] [address] [place] [address], [place] [address] Apr, [facility] [address] [id number] [address] [place] [address], [place] [address] Apr, [facility] [address] [id number] [address] [place] [address], [place] [address] Mar, [facility] [address] [id number] [address] [place] [address], [place] [address] Mar, [facility] [address] [id number] [address] [place] [address], [place] [address] 31 Mar, 2013 [facility] [address] [id number] [address] [place] [address], [place] [address] Mar, 2013 [facility] [address] [id number] [address] [place] [address], [place] [address] 30 Mar, 2014 [facility] [address] [id number] [address] [place] [address], [place] [address] 30 Mar, 2014 [facility] [address] [id number] [address] [place] [address], [place] [address] Mar, [facility] [address] [id number] [address] [place] [address], [place] [address] Mar, [facility] [address] [id number] [address] [place] [address], [place] [address] Mar, [facility] [address] [id number] [address] [place] [address], [place] [address] Mar, [facility] [address] [id number] [address] [place] [address], [place] [address] Mar, [facility] [address] [id number] [address] [place] [address], [place] [address] Mar, [facility] [address] [id number] [address] [place] [address], [place] [address] Mar, [facility] [address] [id number] [address] [place] [address], [place] [address] Mar, [facility] [address] [id number] [address] [place] [address], [place] [address] Mar, [facility] [address] [id number] [address] [place] [address], [place] [address] Mar, [facility] [address] [id number] [address] [place] [address], [place] [address] Mar, [facility] [address] [id number] [address] [place] [id number] Mar, [facility] [address] [id number] [address] [place] [address], [place] [address] Mar, [facility] [address] [id number] [address] [place] [address], [place] [address] Mar, [facility] [address] [id number] [address] [place] [address], [place] [id number] 05 Sep, 2013 [facility] [address] [id number] [address] [place] [address], [place] [id number] 05 Sep, 2013 [facility] [address] [id number] [address] [place] [address], [place] [id number] 04 Feb, 2013 [facility] [address] [id number] [address] [place] [address], [place] [id number] 04 Feb, 2013 [facility] [address] [id number] [address] [place] [address], [place] [address] Feb, 2013 [facility] [address] [id number] [address] [place] [address], [place] [address] Feb, 2013 [facility] [address] [id number] [address] [place] [address], [place] [address] Feb, 2013 [facility] [address] [id number] [address] [place] [address], [place] [address] Feb, 2013 [facility] [address] [id number] [address] [place] [address], [place] [address] Feb, 2013 [facility] [address] [id number] [address] [place] [address], [place] [address] Feb, 2013 [facility] [address] [id number] [address] [place] [address], [place] [address] Jan, [facility] [address] [id number] [address] [place] [address], [place] [address] Jan, [facility] [address] [id number] [address] [place] [address], [place] [address] Jan, [facility] [address] [id number] [facility] [place] [address] Jan, [facility] [address] [id number] [facility] [place] [address] Jan, [facility] [address] [id number] [facility] [address] Jan, [facility] [address] [id number] [address] [place] [address], [place] [address] Jan, [facility] [address] [id number] [address] [place] [address], [place] [address] Jan, [facility] [address] [id number] [address] [place] [address], [place] [address] Jan, [facility] [address] [id number] [address] [place] [address], [place] [address] Jan, [facility] [address] [id number] [address] [place] [address], [place] [address] Jan, [facility] [address] [id number] [address] [place] [address], [place] [address] Jan, [facility] [address] [id number] [address] [place] [address], [place] [address] Dec, [facility] [address] [id number] [address] [place] [address], [place] [address] Dec, [facility] [address] [id number] [address] [place] [address], [place] [address] Dec, [facility] [address] [id number] [address] [place] [address], [place] [address] Dec, [facility] [address] [id number] [address] [place] [address], [place] [address] Dec, [facility] [address] [id number] [address] [place] [address], [place] [address] Dec, [facility] [address] [id number] [address] [place] [address], [place] [address] Dec, [facility] [address] [id number] [address] [place] [address], [place] [address] Dec, 2013 [facility] [address] [id number] [address] [place] [address], [place] [address] Dec, [facility] [address] [id number] [address] [place] [address], [place] [address] Dec, [facility] [address] [id number] [address] [place] [address], [place] [address] Dec, [facility] [address] [id number] [address] [place] [address], [place] [address] Dec, [facility] [address] [id number] [address] [place] [address], [place] [address] Nov, [facility] [address] [id number] [address] [place] [address], [place] [address] Nov, [facility] [address] [id number] [address] [place] [address], [place] [address] Nov, [facility] [address] [id number] [address] [place] [address], [place] [address] Nov, [facility] [address] [id number] [address] [place] [address], [place] [address] Nov, [facility] [address] [id number] [address] [place] [address], [place] [address] Nov, [facility] [address] [id number] [address] [place] [address], [place] [address] Nov, [facility] [address] [id number] [address] [place] [address], [place] [address] Nov, [facility] [address] [id number] [address] [place] [address], [place] [address] Nov, [facility] [address] [id number] [address] [place] [address], [place] [address] Nov, [facility] [address] [id number] [address] [place] [address], [place] [address] Nov, [facility] [address] [id number] [address] [place] [address], [place] [address] Nov, [facility] [address] [id number] [address] [place] [address], [place] [address] Nov, [facility] [address] [id number] [address] [place] [address], [place] [address] Nov, [facility] [address] [id number] [address] [place] [address], [place] [address] October, [facility] [address] [id number] [address] [place] [address], [place] [address] October, [facility] [address] [id number] [address] [place] [address], [place] [address] October, [facility] [address] [id number] [address] [place] [address], [place] [address] October, [facility] [address] [id number] [address] [place] [address], [place] [address] October, [facility] [address] [id number] [address] [place] [address], [place] [address] October, [facility] [address] [id number] [address] [place] [address], [place] [address] October, [facility] [address] [id number] [address] [place] [address], [place] [address] October, [facility] [address] [id number] [address] [place] [address], [place] [address] October, [facility] [address] [id number] [address] [place] [address], [place] [address] October, [facility] [address] [id number] [address] [place] [address], [place] [address] October, [facility] [address] [id number] [address] [place] [address], [place] [address] October, [facility] [address] [id number] [facility] [address] Sep, [facility] [address] [id number] [facility] [place] [address] Sep, [facility] [address] [id number] [facility] [place] [address] Sep, [facility] [address] [id number] [address] [place] [address], [place] [address] Sep, [facility] [address] [id number] [address] [place] [address], [place] [address] Sep, [facility] [address] [id number] [address] [place] [address], [place] [address] Sep, [facility] [address] [id number] [address] [place] [address], [place] [address] Aug, [facility] [address] [id number] [address] [place] [address], [place] [address] Aug, [facility] [address] [id number] [address] [place] [address], [place] [address] Aug, [facility] [address] [id number] [address] [place] [address], [place] [address] Aug, [facility] [address] [id number] [address] [place] [address], [place] [address] Aug, [facility] [address] [id number] [address] [place] [address], [place] [address] Aug, [facility] [address] [id number] [address] [place] [address], [place] [address] Jul, [facility] [address] [id number] [address] [place] [address], [place] [address] Jul, [facility] [address] [id number] [address] [place] [address], [place] [address] Jul, [facility] [address] [id number] [address] [place] [address], [place] [address] Jul, [facility] [address] [id number] [address] [place] [address], [place] [address] Jul, [facility] [address] [id number] [address] [place] [address], [place] [address] Jul, [facility] [address] [id number] [address] [place] [address], [place] [address] Jul, [facility] [address] [id number] [address] [place] [address], [place] [address] Jul, [facility] [address] [id number] [address] [place] [address], [place] [address] Jul, [facility] [address] [id number] [address] [place] [address], [place] [address] Jul, [facility] [address] [id number] [address] [place] [address], [place] [address] Jun, [facility] [address] [id number] [address] [place] [address], [place] [address] Jun, [facility] [address] [id number] [address] [place] [address], [place] [address] Jun, [facility] [address] [id number] [address] [place] [address], [place] [address] Jun, [facility] [address] [id number] [address] [place] [address], [place] [address] Jun, [facility] [address] [id number] [address] [place] [address], [place] [address] Jun, [facility] [address] [id number] [address] [place] [address], [place] [address] Jun, [facility] [address] [id number] [address] [place] [address], [place] [address] Jun, [facility] [address] [id number] [address] [place] [address], [place] [address] May, [facility] [address] [id number] [address] [place] [address], [place] [address] May, [facility] [address] [id number] [address] [place] [address], [place] [address] May, [facility] [address] [id number] [address] [place] [address], [place] [address] May, [facility] [address] [id number] [address] [place] [address], [place] [address] May, [facility] [address] [id number] [address] [place] [address], [place] [address] May, [facility] [address] [id number] [address] [place] [address], [place] [address] May, [facility] [address] [id number] [address] [place] [address], [place] [address] May, [facility] [address] [id number] [address] [place] [address], [place] [address] Apr, [facility] [address] [id number] [address] [place] [address], [place] [address] Apr, [facility] [address] [id number] [address] [place] [address], [place] [address] Apr, [facility] [address] [id number] [address] [place] [address], [place] [address] Apr, [facility] [address] [id number] [address] [place] [address], [place] [address] Apr, [facility] [address] [id number] [address] [place] [address], [place] [address] Apr, [facility] [address] [id number] [address] [place] [address], [place] [address] Mar, [facility] [address] [id number] [address] [place] [address], [place] [address] Mar, [facility] [address] [id number] [address] [place] [address], [place] [address] Mar, [facility] [address] [id number] [address] [place] [address], [place] [address] Mar, [facility] [address] [id number] [address] [place] [address], [place] [address] Mar, [facility] [address] [id number] [address] [place] [address], [place] [address] Mar, [facility] [address] [id number] [address] [place] [address], [place] [address] Mar, [facility] [address] [id number] [address] [place] [address], [place] [address] 30 Feb, 2013 [facility] [address] [id number] [address] [place] [address], [place] [address] 30 Feb, 2013 [facility] [address] [id number] [address] [place] [address], [place] [address] Feb, [facility] [address] [id number] [address] [place] [address], [place] [address] Feb, [facility] [address] [id number] [address] [place] [address], [place] [address] Feb, [facility] [address] [id number] [address] [place] [address], [place] [address] Feb, [facility] [address] [id number] [address] [place] [address], [place] [address] Jan, [facility] [address] [id number] [address] [place] [address], [place] [address] Jan, [facility] [address] [id number] [address] [place] [address], [place] [address] Jan, [facility] [address] [id number] [address] [place] [address], [place] [address] Jan, [facility] [address] [id number] [address] [place] [address], [place] [address] Jan, [facility] [address] [id number] [address] [place] [address], [place] [address] Jan, [facility] [address] [id number] [address] [place] [address], [place] [address] Jan, [facility] [address] [id number] [address] [place] [address], [place] [address] Jan, [facility] [address] [id number] [address] [place] [address], [place] [address] Jan, [facility] [address] [id number] [address] [place] [address], [place] [address] Dec, [facility] [address] [id number] [address] [place] [address], [place] [address] Dec, [facility] [address] [id number] [address] [place] [address], [place] [address] Dec, [facility] [address] [id number] [address] [place] [address], [place] [address] Dec, [facility] [address] [id number] [address] [place] [address], [place] [address] Dec, [facility] [address] [id number] [address] [place] [address], [place] [address] Dec, [facility] [address] [id number] [address] [place] [address], [place] [address] Dec, [facility] [address] [id number] [address] [place] [address], [place] [address] Dec, [facility] [address] [id number] [address] [place] [address], [place] [address] Dec, [facility] [address] [id number] [address] [place] [address], [place] [address] Dec, [facility] [address] [id number] [address] [place] [address], [place] [address] Dec, [facility] [address] [id number] [address] [place] [address], [place] [address] Dec, [facility] [address] [id number] [address] [place] [address], [place] [address] Dec, [facility] [address] [id number] [address] [place] [address], [place] [address] Nov, [facility] [address] [id number] [address] [place] [address], [place] [address] Nov, [facility] [address] [id number] [address] [place] [address], [place] [address] Nov, [facility] [address] [id number] [address] [place] [address], [place] [address] Nov, [facility] [address] [id number] [address] [place] [address], [place] [address] October, [facility] [address] [id number] [address] [place] [address], [place] [address] October, [facility] [address] [id number] [address] [place] [address], [place] [address] October, [facility] [address] [id number] [address] [place] [address], [place] [address] October, [facility] [address] [id number] [address] [place] [address], [place] [address] October, [facility] [address] [id number] [address] [place] [address], [place] [address] October, [facility] [address] [id number] [address] [place] [address], [place] [address] Sep, [facility] [address] [id number] [address] [place] [address], [place] [address] Sep, [facility] [address] [id number] [address] [place] [address], [place] [address] Sep, [facility] [address] [id number] [address] [place] [address], [place] [address] Sep, [facility] [address] [id number] [address] [place] [address], [place] [address] 19 Sep, 2012 [facility] [address] [id number] [address] [place] [address], [place] [address] 16 Sep, 2012 [facility] [address] [id number] [address] [place] [address], [place] [address] Sep, [facility] [address] [id number] [address] [place] [address], [place] [address] Sep, [facility] [address] [id number] [address] [place] [address], [place] [address] Sep, [facility] [address] [id number] [address] [place] [address], [place] [address] Sep, [facility] [address] [id number] [address] [place] [address], [place] [address] Sep, [facility] [address] [id number] [address] [place] [address], [place] [address] Aug, [facility] [address] [id number] [address] [place] [address], [place] [address] Aug, [facility] [address] [id number] [address] [place] [address], [place] [address] 25 Aug, 2012 [facility] [address] [id number] [address] [place] [address], [place] [address] Aug, [facility] [address] [id number] [address] [place] [address], [place] [address] 19 Aug, 2012 [facility] [address] [id number] [address] [place] [address], [place] [address] 18 Aug, 2012 [facility] [address] [id number] [address] [place] [address], [place] [address] 17 Aug, 2012 [facility] [address] [id number] [address] [place] [address], [place] [address] 15 Aug, 2012 [facility] [address] [id number] [address] [place] [address], [place] [address] 15 Aug, 2012 [facility] [address] [id number] [address] [place] [address], [place] [address] Aug, [facility] [address] [id number] [address] [place] [address], [place] [address] Aug, [facility] [address] [id number] [address] [place] [address], [place] [address] Aug, [facility] [address] [id number] [address] [place] [address], [place] [address] Jul, [facility] [address] [id number] [address] [place] [address], [place] [address] Jul, [facility] [address] [id number] [address] [place] [address], [place] [address] Jul, [facility] [address] [id number] [address] [place] [address], [place] [address] Jul, [facility] [address] [id number] [address] [place] [address], [place] [address] Jul, [facility] [address] [id number] [address] [place] [address], [place] [address] Jul, [facility] [address] [id number] [address] [place] [address], [place] [address] Jul, [facility] [address] [id number] [address] [place] [address], [place] [address] Jul, [facility] [address] [id number] [address] [place] [address], [place] [address] Jul, [facility] [address] [id number] [address] [place] [address], [place] [address] Jul, [facility] [address] [id number] [address] [place] [address], [place] [address] May, [facility] [address] [id number] [place] [id number] May, [facility] [address] [id number] [address] [address] May, [facility] [address] [id number] [address] [place] [address] May, [facility] [address] [id number] [address] [place] [address] May, [facility] [address] [id number] [address] [place] [address] Apr, [facility] [address] [id number] [place] [id number] Apr, [facility] [address] [id number] [address] [place] [address] Apr, [facility] [address] [id number] [address] [place] [address] Mar, [facility] [address] [id number] [place] [id number] Mar, [facility] [address] [id number] [address] [place] [address] Mar, [facility] [address] [id number] [place] [id number] Feb, [facility] [address] [id number] [address] [place] [id number] Feb, [facility] [address] [id number] [address] [place] [id number] Feb, [facility] [address] [id number] [place] [id number] Feb, [facility] [address] [id number] [place] [id number] Feb, [facility] [address] [id number] [place] [id number] Jan, [facility] [address] [id number] [address] [place] [id number] Jan, [facility] [address] [id number] [place] [id number] Jan, [facility] [address] [id number] [place] [id number] Jan, [facility] [address] [id number] [place] [id number] Jan, [facility] [address] [facility] [id number] [address] [address] Jan, [facility] [address] [facility] [id number] [address] [place] [id number] Jan, [facility] [address] [facility] [id number] [address] [place] [id number] Aug, [facility] [address] [id number] [place] [id number] Aug, [facility] [address] [facility] [id number] [address] [place] [id number] Jul, [facility] [address] [facility] [id number] [address] [place] [id number] Jul, [facility] [address] [facility] [id number] [address] [place] [id number] Jul, [facility] [address] [id number] [place] [id number] Jul, 2011 [facility] [address] [facility] [id number] [address] [place] [id number] Jul, [facility] [address] [id number] [place] [id number] Jul, [facility] [address] [facility] [id number] [address] [place] [id number] Jul, [facility] [address] [id number] [place] [id number] Jul, [facility] [address] [id number] [place] [id number] Jul, [facility] [address] [id number] [place] [id number] Jul, [facility] [address] [facility] [id number] [address] [place] [id number] May, [facility] [address] [id number] [address] [place] [id number] May, [facility] [address] [id number] [address] [place] [id number] May, [facility] [address] [id number] [address] [place] [id number] Apr, [facility] [address] [id number] [address] [place] [id number] Jan, [facility] [address] [id number] [address] [place] [id number] Jan, [facility] [address] [id number] [address] [place] [id number] Dec, [facility] [address] [id number] [address] [place] [id number] Dec, [facility] [address] [id number] [address] [place] [id number] May, [facility] [address] [id number] [address] [place] [id number] Mar, [facility] [address] [id number] [address] [place] [id number] Mar, [facility] [address] [id number] [address] [place] [id number] 14 Jan, 2009 IMMUNIZATIONS No Known Immunizations [...]
--- OUTSIDE RECORDS SUMMARY | 2020-01-28 13:08 | XMS REPORT ---
Author Author Heydi Candelario Doctor Organization [facility] Address Unknown Phone Unavailable Care Team Providers Care Auditor Appraiser Name Role Phone Migration, Doctor Unavailable Unavailable PROBLEMS Type Condition ICD9-CM Code EOQ02-OG Code Onset Dates Condition S tatus SNOMED Code Problem Chronic pain syndrome G89.4 Active 523645444 Problem Sore throat J02.9 Active 96336940 3 Problem Choriocarcinoma C58 Active 1881 44411 Problem nursing home current use of anticoagulant Z79.01 Active 739879978 Problem History of venous thromboembolism V12.51 Active 395075068 Problem Cellulitis of unspecified part of limb L03.119 Active 397429405 Problem Gastroesophageal reflux disease without esophagitis K21.9 Active 790834920 Problem History of pulmonary embolism Z86.711 Active 235090676 Problem Pseudotumor cerebri G93.2 Active 86371704 Problem History of DVT (deep vein thrombosis) Z86.718 Active 414741219 ALLERGIES No Information ENCOUNTERS Encounter Location Date Diagnosis [place] [address] [place] [id number] [address] [place] [address] 14 Nov, 2019 Encounter for screening labo ratory testing for COVID-19 virus Z11.59 [place] [address] [place] [id number] [address] [place] [address] 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, 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 [place] [address] [facility] [id number] [address] [place] [address] Apr, nursing home current use of ant icoagulant Z79.01 [place] [address] [facility] [id number] [address] [place] [address] Apr, Cellulitis of unspecified pa rt of limb L03.119 ; Allergic contact dermatitis due to adhesives L23.1 and Chronic pain syndrome G89.4 [place] [address] [address] Apr, [facility] [address] [address] Apr, nursing home current use of ant icoagulant Z79.01 ; Cellulitis of unspecified part of limb L03.119 ; Chronic pain syndrome G89.4 and Anxiety F41.9 [place] [address] [address] Apr, [facility] [address] [address] Apr, [place] [address] [address] Mar, [place] [address] [address] Mar, [place] [address] [address] Mar, Sore throat J02.9 ; Gastroes ophageal reflux disease without esophagitis K21.9 ; Pseudotumor cerebri G93.2 ; Chronic pain syndrome G89.4 ; Choriocarcinoma C58 ; History of pulmonary embolism Z86.711 ; History of DVT (deep vein thrombosis) Z86.718 ; Anxiety F41.9 and Tachycardia R00.0 [place] [address] [place] [id number] [address] [place] [address] Feb, Anxiety 300.00 and Chronic p ain 338.29 [facility] [address] [place] [id number] [address] [place] [address] Feb, [facility] [address] [address] Feb, [facility] [address] [place] [id number] [address] [place] [address] Jan, 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.61 and Dysuria 788.1 [place] [address] [place] [id number] [address] [place] [address] Jan, Dysuria 788.1 [place] [address] [address] Jan, Anxiety 300.00 and Chronic p ain 338.29 [place] [address] [address] Jan, [place] [address] [address] Jan, [place] [address] [address] Jan, [place] [address] [address] Dec, Weakness 780.79 [place] [address] [address] Dec, 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.[address] [address] Dec, Palpitations 785.1 ; Tremor 781.0 ; Weakness 780.79 ; nursing home current use of anticoagulant therapy V58.61 and Yeast vaginitis 112.1 [place] [address] [place] [id number] [address] [place] [address] Dec, [place] [address] [address] Dec, Cervicalgia 723.1 ; Tachycar yoseph 785.0 ; Pseudotumor cerebri 348.2 and History of venous thromboembolism V12.51 [place] [address] [address] Nov, [place] [address] [place] [id number] [address] [place] [address] Nov, [place] [address] [place] [id number] [place] [address] 24 Nov, 2014 Tachycardia 785.0 ; Pseudotu mor cerebri 348.2 ; Anxiety 300.00 and History of venous thromboembolism V12.51 [facility] [address] [id number] [address] [place] [address] 19 Nov, 2014 [facility] [address] [id number] [address] [place] [address] 18 Nov, 2014 [facility] [address] [id number] [address] [place] [address] 16 Nov, 2014 [facility] [address] [id number] [address] [place] [address] Nov, [facility] [address] [facility] [id number] [address] [place] [address] Nov, [facility] [address] [facility] [id number] [address] [place] [address] Nov, [facility] [address] [id number] [address] [place] [address] Nov, [facility] [address] [facility] [id number] [address] [place] [address] October, [facility] [address] [facility] [id number] [address] [place] [address] October, [facility] [address] [facility] [id number] [address] [place] [address] October, Pain in thoracic spine 724.1 and Tachycardia 785.0 [facility] [address] [id number] [address] [place] [address] October, [facility] [address] [facility] [id number] [address] [place] [address] October, [facility] [address] [facility] [id number] [address] [place] [address] 14 Sep, 2014 [facility] [address] [facility] [id number] [address] [place] [address] Sep, [facility] [address] [id number] [address] [place] [address], [place] [address] Aug, [facility] [address] [id number] [address] [place] [address], [place] [address] Aug, [facility] [address] [id number] [address] [place] [address], [place] [address] Aug, [facility] [address] [id number] [address] [place] [address], [place] [address] Aug, [facility] [address] [id number] [address] [place] [address], [place] [address] Aug, [facility] [address] [id number] [address] [place] [address], [place] [address] Aug, [facility] [address] [id number] [address] [place] [address], [place] [address] Aug, [facility] [address] [id number] [address] [place] [address], [place] [address] Aug, [facility] [address] [id number] [address] [place] [address], [place] [address] Aug, [facility] [address] [id number] [address] [place] [address], [place] [address] Aug, [facility] [address] [id number] [address] [place] [address], [place] [address] Aug, [facility] [address] [id number] [address] [place] [address], [place] [address] Aug, [facility] [address] [id number] [address] [place] [address], [place] [address] Jul, [facility] [address] [id number] [address] [place] [address], [place] [address] Jul, [facility] [address] [id number] [address] [place] [address], [place] [address] Jul, [facility] [address] [id number] [address] [place] [address], [place] [address] 23 Jul, 2014 [facility] [address] [id number] [address] [place] [address], [place] [address] 23 Jul, 2014 [facility] [address] [id number] [address] [place] [address], [place] [address] 23 Jul, 2014 [facility] [address] [id number] [address] [place] [address], [place] [address] 23 Jul, 2014 [facility] [address] [id number] [address] [place] [address], [place] [address] 23 Jul, 2014 [facility] [address] [id number] [address] [place] [address], [place] [address] 20 Jul, 2014 [facility] [address] [id number] [address] [place] [address], [place] [address] 20 Jul, 2014 [facility] [address] [id number] [address] [place] [address] 19 Jul, 2014 [facility] [address] [id number] [address] [place] [address], [place] [address] 19 Jul, 2014 [facility] [address] [id number] [address] [place] [address] 17 Jul, 2014 [facility] [address] [id number] [address] [place] [address] 17 Jul, 2014 [facility] [address] [id number] [address] [place] [address] 16 Jul, 2014 [facility] [address] [id number] [address] [place] [address], [place] [address] 16 Jul, 2014 [facility] [address] [id number] [address] [place] [address] 16 Jul, 2014 [facility] [address] [id number] [address] [place] [address] 16 Jul, 2014 [facility] [address] [id number] [address] [place] [address], [place] [address] 13 Jul, 2014 [facility] [address] [id number] [address] [place] [address], [place] [address] Jul, 2014 [facility] [address] [id number] [address] [place] [address], [place] [address] Jul, 2014 [facility] [address] [id number] [address] [place] [address], [place] [address] Jul, 2014 [facility] [address] [id number] [address] [place] [address], [place] [address] Jul, 2014 [facility] [address] [id number] [address] [place] [address], [place] [address] Jul, [facility] [address] [id number] [address] [place] [address], [place] [address] Jul, 2014 [facility] [address] [id number] [address] [place] [address], [place] [address] Jul, [facility] [address] [id number] [address] [place] [address], [place] [address] Jul, [facility] [address] [id number] [address] [place] [address], [place] [address] Jul, [facility] [address] [id number] [address] [place] [address] Jul, [facility] [address] [id number] [address] [place] [address] Jul, [facility] [address] [id number] [address] [place] [address], [place] [address] Jun, [facility] [address] [id number] [address] [place] [address] Jun, [facility] [address] [id number] [address] [place] [address] Jun, [facility] [address] [id number] [address] [place] [address] Jun, [facility] [address] [id number] [address] [place] [address], [place] [address] Jun, [facility] [address] [id number] [address] [place] [address], [place] [address] Jun, [facility] [address] [id number] [address] [place] [address], [place] [address] Jun, [facility] [address] [id number] [address] [place] [address], [place] [address] Jun, [facility] [address] [id number] [address] [place] [address], [place] [address] Jun, [facility] [address] [id number] [address] [place] [address], [place] [address] Jun, [facility] [address] [id number] [address] [place] [address], [place] [address] Jun, [facility] [address] [id number] [address] [place] [address], [place] [address] Jun, [facility] [address] [id number] [address] [place] [address], [place] [address] Jun, [facility] [address] [id number] [address] [place] [address], [place] [address] Jun, [facility] [address] [id number] [address] [place] [address], [place] [address] Jun, [facility] [address] [id number] [address] [place] [address], [place] [address] Jun, [facility] [address] [id number] [address] [place] [address], [place] [address] Jun, [facility] [address] [id number] [address] [place] [address], [place] [address] Jun, [facility] [address] [id number] [address] [place] [address], [place] [address] Jun, [facility] [address] [id number] [address] [place] [address], [place] [address] Jun, [facility] [address] [id number] [address] [place] [address], [place] [address] May, [facility] [address] [id number] [address] [place] [address], [place] [address] May, [facility] [address] [id number] [address] [place] [address], [place] [address] May, [facility] [address] [id number] [address] [place] [address], [place] [address] May, [facility] [address] [id number] [address] [place] [address], [place] [address] May, [facility] [address] [id number] [address] [place] [address], [place] [address] May, [facility] [address] [id number] [address] [place] [address], [place] [address] May, [facility] [address] [id number] [address] [place] [address], [place] [address] May, [facility] [address] [id number] [address] [place] [address], [place] [address] May, [facility] [address] [id number] [address] [place] [address], [place] [address] May, [facility] [address] [id number] [address] [place] [address], [place] [address] May, [facility] [address] [id number] [address] [place] [address], [place] [address] 18 May, 2014 [facility] [address] [id number] [address] [place] [address], [place] [address] 18 May, 2014 [facility] [address] [id number] [address] [place] [address], [place] [address] 17 May, 2014 [facility] [address] [id number] [address] [place] [address], [place] [address] 16 May, 2014 [facility] [address] [id number] [facility] [place] [address] 16 May, 2014 [facility] [address] [id number] [facility] [place] [address] 15 May, 2014 [facility] [address] [id number] [address] [place] [address], [place] [address] 15 May, 2014 [facility] [address] [id number] [address] [place] [address], [place] [address] May, [facility] [address] [id number] [address] [place] [address], [place] [address] May, [facility] [address] [id number] [address] [place] [address], [place] [address] May, [facility] [address] [id number] [address] [place] [address], [place] [address] May, [facility] [address] [id number] [address] [place] [address], [place] [address] May, [facility] [address] [id number] [address] [place] [address], [place] [address] May, [facility] [address] [id number] [address] [place] [address], [place] [address] May, [facility] [address] [id number] [address] [place] [address], [place] [address] May, [facility] [address] [id number] [address] [place] [address], [place] [address] May, [facility] [address] [id number] [address] [place] [address], [place] [address] May, [facility] [address] [id number] [address] [place] [address], [place] [address] May, [facility] [address] [id number] [address] [place] [address], [place] [address] May, [facility] [address] [id number] [address] [place] [address], [place] [address] 05 May, 2014 [facility] [address] [id number] [address] [place] [address], [place] [address] May, [facility] [address] [id number] [address] [place] [address], [place] [address] May, [facility] [address] [id number] [address] [place] [address], [place] [address] May, [facility] [address] [id number] [address] [place] [address], [place] [address] Apr, [facility] [address] [id number] [address] [place] [address], [place] [address] Apr, [facility] [address] [id number] [address] [place] [address], [place] [address] Apr, [facility] [address] [id number] [address] [place] [address], [place] [address] Apr, [facility] [address] [id number] [address] [place] [address], [place] [address] Apr, [facility] [address] [id number] [address] [place] [address], [place] [address] Apr, [facility] [address] [id number] [address] [place] [address], [place] [address] Apr, [facility] [address] [id number] [address] [place] [address], [place] [address] Apr, [facility] [address] [id number] [address] [place] [address], [place] [address] Apr, [facility] [address] [id number] [address] [place] [address], [place] [address] Apr, [facility] [address] [id number] [address] [place] [address], [place] [address] Mar, [facility] [address] [id number] [address] [place] [address], [place] [address] Mar, [facility] [address] [id number] [address] [place] [address], [place] [address] 31 Mar, 2013 [facility] [address] [id number] [address] [place] [address], [place] [address] Mar, 2013 [facility] [address] [id number] [address] [place] [address], [place] [address] 30 Mar, 2014 [facility] [address] [id number] [address] [place] [address], [place] [address] 30 Mar, 2014 [facility] [address] [id number] [address] [place] [address], [place] [address] Mar, [facility] [address] [id number] [address] [place] [address], [place] [address] Mar, [facility] [address] [id number] [address] [place] [address], [place] [address] Mar, [facility] [address] [id number] [address] [place] [address], [place] [address] Mar, [facility] [address] [id number] [address] [place] [address], [place] [address] Mar, [facility] [address] [id number] [address] [place] [address], [place] [address] Mar, [facility] [address] [id number] [address] [place] [address], [place] [address] Mar, [facility] [address] [id number] [address] [place] [address], [place] [address] Mar, [facility] [address] [id number] [address] [place] [address], [place] [address] Mar, [facility] [address] [id number] [address] [place] [address], [place] [address] Mar, [facility] [address] [id number] [address] [place] [address], [place] [address] Mar, [facility] [address] [id number] [address] [place] [address] Mar, [facility] [address] [id number] [address] [place] [address], [place] [address] Mar, [facility] [address] [id number] [address] [place] [address], [place] [address] Mar, [facility] [address] [id number] [address] [place] [address], [place] [address] 05 Sep, 2013 [facility] [address] [id number] [address] [place] [address], [place] [address] 05 Sep, 2013 [facility] [address] [id number] [address] [place] [address], [place] [address] 04 Feb, 2013 [facility] [address] [id number] [address] [place] [address], [place] [address] 04 Feb, 2013 [facility] [address] [id number] [address] [place] [address], [place] [address] Feb, 2013 [facility] [address] [id number] [address] [place] [address], [place] [address] Feb, 2013 [facility] [address] [id number] [address] [place] [address], [place] [address] Feb, 2013 [facility] [address] [id number] [address] [place] [address], [place] [address] Feb, 2013 [facility] [address] [id number] [address] [place] [address], [place] [address] Feb, 2013 [facility] [address] [id number] [address] [place] [address], [place] [address] Feb, 2013 [facility] [address] [id number] [address] [place] [address], [place] [address] Jan, [facility] [address] [id number] [address] [place] [address], [place] [address] Jan, [facility] [address] [id number] [address] [place] [address], [place] [address] Jan, [facility] [address] [id number] [facility] [place] [address] Jan, [facility] [address] [id number] [facility] [place] [address] Jan, [facility] [address] [id number] [facility] [place] [address] Jan, [facility] [address] [id number] [address] [place] [address], [place] [address] Jan, [facility] [address] [id number] [address] [place] [address], [place] [address] Jan, [facility] [address] [id number] [address] [place] [address], [place] [address] Jan, [facility] [address] [id number] [address] [place] [address], [place] [address] Jan, [facility] [address] [id number] [address] [place] [address], [place] [address] Jan, [facility] [address] [id number] [address] [place] [address], [place] [address] Jan, [facility] [address] [id number] [address] [place] [address], [place] [address] Dec, [facility] [address] [id number] [address] [place] [address], [place] [address] Dec, [facility] [address] [id number] [address] [place] [address], [place] [address] Dec, [facility] [facility] [address] [id number] [address] [place] [address], [place] [address] Dec, [facility] [address] [id number] [address] [place] [address], [place] [address] Dec, [facility] [address] [id number] [address] [place] [address], [place] [address] Dec, [facility] [address] [id number] [address] [place] [address], [place] [address] Dec, [facility] [address] [id number] [address] [place] [address], [place] [address] Dec, 2013 [facility] [address] [id number] [address] [place] [address], [place] [address] Dec, [facility] [address] [id number] [address] [place] [address], [place] [address] Dec, [facility] [address] [id number] [address] [place] [address], [place] [address] Dec, [facility] [address] [id number] [address] [place] [address], [place] [address] Dec, [facility] [address] [id number] [address] [place] [address], [place] [address] Nov, [facility] [address] [id number] [address] [place] [address], [place] [address] Nov, [facility] [address] [id number] [address] [place] [address], [place] [address] Nov, [facility] [address] [id number] [address] [place] [address], [place] [address] Nov, [facility] [address] [id number] [address] [place] [address], [place] [address] Nov, [facility] [address] [id number] [address] [place] [address], [place] [address] Nov, [facility] [address] [id number] [address] [place] [address], [place] [address] Nov, [facility] [address] [id number] [address] [place] [address], [place] [address] Nov, [facility] [address] [id number] [address] [place] [address], [place] [address] Nov, [facility] [address] [id number] [address] [place] [address], [place] [address] Nov, [facility] [address] [id number] [address] [place] [address], [place] [address] Nov, [facility] [address] [id number] [address] [place] [address], [place] [address] Nov, [facility] [address] [id number] [address] [place] [address], [place] [address] Nov, [facility] [address] [id number] [address] [place] [address], [place] [address] Nov, [facility] [address] [id number] [address] [place] [address], [place] [address] October, [facility] [address] [id number] [address] [place] [address], [place] [address] October, [facility] [address] [id number] [address] [place] [address], [place] [address] October, [facility] [address] [id number] [address] [place] [address], [place] [address] October, [facility] [address] [id number] [address] [place] [address], [place] [address] October, [facility] [address] [id number] [address] [place] [address], [place] [address] October, [facility] [address] [id number] [address] [place] [address], [place] [address] October, [facility] [address] [id number] [address] [place] [address], [place] [address] October, [facility] [address] [id number] [address] [place] [address], [place] [address] October, [facility] [address] [id number] [address] [place] [address], [place] [address] October, [facility] [address] [id number] [address] [place] [address], [place] [address] October, [facility] [address] [id number] [address] [place] [address], [place] [address] October, [facility] [address] [id number] [facility] [place] [address] Sep, [facility] [address] [id number] [facility] [place] [address] Sep, [facility] [address] [id number] [facility] [place] [address] Sep, [facility] [address] [id number] [address] [place] [address], [place] [address] Sep, [facility] [address] [id number] [address] [place] [address], [place] [address] Sep, [facility] [address] [id number] [address] [place] [address], [place] [address] Sep, [facility] [address] [id number] [address] [place] [address], [place] [address] Aug, [facility] [address] [id number] [address] [place] [address], [place] [address] Aug, [facility] [address] [id number] [address] [place] [address], [place] [address] Aug, [facility] [address] [id number] [address] [place] [address], [place] [address] Aug, [facility] [address] [id number] [address] [place] [address], [place] [address] Aug, [facility] [address] [id number] [address] [place] [address], [place] [address] Aug, [facility] [address] [id number] [address] [place] [address], [place] [address] Jul, [facility] [address] [id number] [address] [place] [address], [place] [address] Jul, [facility] [address] [id number] [address] [place] [address], [place] [address] Jul, [facility] [address] [id number] [address] [place] [address], [place] [address] Jul, [facility] [address] [id number] [address] [place] [address], [place] [address] Jul, [facility] [address] [id number] [address] [place] [address], [place] [address] Jul, [facility] [address] [id number] [address] [place] [address], [place] [address] Jul, [facility] [address] [id number] [address] [place] [address], [place] [address] Jul, [facility] [address] [id number] [address] [place] [address], [place] [address] Jul, [facility] [address] [id number] [address] [place] [address], [place] [address] Jul, [facility] [address] [id number] [address] [place] [address], [place] [address] Jun, [facility] [address] [id number] [address] [place] [address], [place] [address] Jun, [facility] [address] [id number] [address] [place] [address], [place] [address] Jun, [facility] [address] [id number] [address] [place] [address], [place] [address] Jun, [facility] [address] [id number] [address] [place] [address], [place] [address] Jun, [facility] [address] [id number] [address] [place] [address], [place] [address] Jun, [facility] [address] [id number] [address] [place] [address], [place] [address] Jun, [facility] [address] [id number] [address] [place] [address], [place] [address] Jun, [facility] [address] [id number] [address] [place] [address], [place] [address] May, [facility] [address] [id number] [address] [place] [address], [place] [address] May, [facility] [address] [id number] [address] [place] [address], [place] [address] May, [facility] [address] [id number] [address] [place] [address], [place] [address] May, [facility] [address] [id number] [address] [place] [address], [place] [address] May, [facility] [address] [id number] [address] [place] [address], [place] [address] May, [facility] [address] [id number] [address] [place] [address], [place] [address] May, [facility] [address] [id number] [address] [place] [address], [place] [address] May, [facility] [address] [id number] [address] [place] [address], [place] [address] Apr, [facility] [address] [id number] [address] [place] [address], [place] [address] Apr, [facility] [address] [id number] [address] [place] [address], [place] [address] Apr, [facility] [address] [id number] [address] [place] [address], [place] [address] Apr, [facility] [address] [id number] [address] [place] [address], [place] [address] Apr, [facility] [address] [id number] [address] [place] [address], [place] [address] Apr, [facility] [address] [id number] [address] [place] [address], [place] [address] Mar, [facility] [address] [id number] [address] [place] [address], [place] [address] Mar, [facility] [address] [id number] [address] [place] [address], [place] [address] Mar, [facility] [address] [id number] [address] [place] [address], [place] [address] Mar, [facility] [address] [id number] [address] [place] [address], [place] [address] Mar, [facility] [address] [id number] [address] [place] [address], [place] [address] Mar, [facility] [address] [id number] [address] [place] [address], [place] [address] Mar, [facility] [address] [id number] [address] [place] [address], [place] [address] 30 Feb, 2013 [facility] [address] [id number] [address] [place] [address], [place] [address] 30 Feb, 2013 [facility] [address] [id number] [address] [place] [address], [place] [address] Feb, [facility] [address] [id number] [address] [place] [address], [place] [address] Feb, [facility] [address] [id number] [address] [place] [address], [place] [address] Feb, [facility] [address] [id number] [address] [place] [address], [place] [address] Feb, [facility] [address] [id number] [address] [place] [address], [place] [address] Jan, [facility] [address] [id number] [address] [place] [address], [place] [address] Jan, [facility] [address] [id number] [address] [place] [address], [place] [address] Jan, [facility] [address] [id number] [address] [place] [address], [place] [address] Jan, [facility] [address] [id number] [address] [place] [address], [place] [address] Jan, [facility] [address] [id number] [address] [place] [address], [place] [address] Jan, [facility] [address] [id number] [address] [place] [address], [place] [address] Jan, [facility] [address] [id number] [address] [place] [address], [place] [address] Jan, [facility] [address] [id number] [address] [place] [address], [place] [address] Jan, [facility] [address] [id number] [address] [place] [address], [place] [address] Dec, [facility] [address] [id number] [address] [place] [address], [place] [address] Dec, [facility] [address] [id number] [address] [place] [address], [place] [address] Dec, [facility] [address] [id number] [address] [place] [address], [place] [address] Dec, [facility] [address] [id number] [address] [place] [address], [place] [address] Dec, [facility] [address] [id number] [address] [place] [address], [place] [address] Dec, [facility] [address] [id number] [address] [place] [address], [place] [address] Dec, [facility] [address] [id number] [address] [place] [address], [place] [address] Dec, [facility] [address] [id number] [address] [place] [address], [place] [address] Dec, [facility] [address] [id number] [address] [place] [address], [place] [address] Dec, [facility] [address] [id number] [address] [place] [address], [place] [address] Dec, [facility] [address] [id number] [address] [place] [address], [place] [address] Dec, [facility] [address] [id number] [address] [place] [address], [place] [address] Dec, [facility] [address] [id number] [address] [place] [address], [place] [address] Nov, [facility] [address] [id number] [address] [place] [address], [place] [address] Nov, [facility] [address] [id number] [address] [place] [address], [place] [address] Nov, [facility] [address] [id number] [address] [place] [address], [place] [address] Nov, [facility] [address] [id number] [address] [place] [address], [place] [address] October, [facility] [address] [id number] [address] [place] [address], [place] [address] October, [facility] [address] [id number] [address] [place] [address], [place] [address] October, [facility] [address] [id number] [address] [place] [address], [place] [address] October, [facility] [address] [id number] [address] [place] [address], [place] [address] October, [facility] [address] [id number] [address] [place] [address], [place] [address] October, [facility] [address] [id number] [address] [place] [address], [place] [address] Sep, [facility] [address] [id number] [address] [place] [address], [place] [address] Sep, [facility] [address] [id number] [address] [place] [address], [place] [address] Sep, [facility] [address] [id number] [address] [place] [address], [place] [address] Sep, [facility] [address] [id number] [address] [place] [address], [place] [address] 19 Sep, 2012 [facility] [address] [id number] [address] [place] [address], [place] [address] 16 Sep, 2012 [facility] [address] [id number] [address] [place] [address], [place] [address] Sep, [facility] [address] [id number] [address] [place] [address], [place] [address] Sep, [facility] [address] [id number] [address] [place] [address], [place] [address] Sep, [facility] [address] [id number] [address] [place] [address], [place] [address] Sep, [facility] [address] [id number] [address] [place] [address], [place] [address] Sep, [facility] [address] [id number] [address] [place] [address], [place] [address] Aug, [facility] [address] [id number] [address] [place] [address], [place] [address] Aug, [facility] [address] [id number] [address] [place] [address], [place] [address] 25 Aug, 2012 [facility] [address] [id number] [address] [place] [address], [place] [address] Aug, [facility] [address] [id number] [address] [place] [address], [place] [address] 19 Aug, 2012 [facility] [address] [id number] [address] [place] [address], [place] [address] 18 Aug, 2012 [facility] [address] [id number] [address] [place] [address], [place] [address] 17 Aug, 2012 [facility] [address] [id number] [address] [place] [address], [place] [address] 15 Aug, 2012 [facility] [address] [id number] [address] [place] [address], [place] [address] 15 Aug, 2012 [facility] [address] [id number] [address] [place] [address], [place] [address] Aug, [facility] [address] [id number] [address] [place] [address], [place] [address] Aug, [facility] [address] [id number] [address] [place] [address], [place] [address] Aug, [facility] [address] [id number] [address] [place] [address], [place] [address] Jul, [facility] [address] [id number] [address] [place] [address], [place] [address] Jul, [facility] [address] [id number] [address] [place] [address], [place] [address] Jul, [facility] [address] [id number] [address] [place] [address], [place] [address] Jul, [facility] [address] [id number] [address] [place] [address], [place] [address] Jul, [facility] [address] [id number] [address] [place] [address], [place] [address] Jul, [facility] [address] [id number] [address] [place] [address], [place] [address] Jul, [facility] [address] [id number] [address] [place] [address], [place] [address] Jul, [facility] [address] [id number] [address] [place] [address], [place] [address] Jul, [facility] [address] [id number] [address] [place] [address], [place] [address] Jul, [facility] [address] [id number] [address] [place] [address], [place] [address] May, [facility] [address] [id number] [place] [id number] May, [facility] [address] [id number] [address] [place] [address] May, [facility] [address] [id number] [address] [place] [id number] May, [facility] [address] [id number] [address] [place] [id number] May, [facility] [address] [id number] [address] [place] [phone] Apr, [facility] [place] [address] [id number] [place] [id number] Apr, [facility] [address] [id number] [address] [place] [id number] Apr, [facility] [address] [id number] [address] [place] [id number] Mar, [facility] [place] [address] [id number] [place] [id number] Mar, [facility] [address] [id number] [address] [place] [id number] Mar, [facility] [place] [address] [id number] [place] [id number] Feb, [facility] [address] [id number] [address] [place] [id number] Feb, [facility] [address] [id number] [address] [place] [id number] Feb, [facility] [address] [id number] [place] [id number] Feb, [facility] [place] [address] [id number] [place] [id number] Feb, [facility] [place] [address] [id number] [place] [id number] Jan, [facility] [address] [id number] [address] [place] [id number] Jan, [facility] [place] [address] [id number] [place] [id number] Jan, [facility] [place] [address] [id number] [place] [id number] Jan, [facility] [place] [address] [id number] [place] [id number] Jan, [facility] [address] [facility] [id number] [address] [place] [address] Jan, [facility] [address] [facility] [id number] [address] [place] [phone] Jan, [facility] [address] [facility] [id number] [address] [place] [phone] Aug, [facility] [place] [address] [id number] [place] [id number] Aug, [facility] [address] [facility] [id number] [address] [place] [id number] Jul, [facility] [address] [facility] [id number] [address] [place] [id number] Jul, [facility] [address] [facility] [id number] [address] [place] [id number] Jul, [facility] [place] [address] [id number] [place] [id number] Jul, 2011 [facility] [address] [facility] [id number] [address] [place] [id number] Jul, [facility] [place] [address] [id number] [place] [id number] Jul, [facility] [address] [facility] [id number] [address] [place] [id number] Jul, [facility] [place] [address] [id number] [place] [id number] Jul, [facility] [place] [address] [id number] [place] [id number] Jul, [facility] [place] [address] [id number] [place] [id number] Jul, [facility] [address] [facility] [id number] [address] [place] [id number] May, [facility] [address] [id number] [address] [place] [id number] May, [facility] [address] [id number] [address] [place] [id number] May, [facility] [address] [id number] [address] [place] [id number] Apr, [facility] [address] [id number] [address] [place] [id number] Jan, [facility] [address] [id number] [address] [place] [id number] Jan, [facility] [address] [id number] [address] [place] [id number] Dec, [facility] [address] [id number] [address] [place] [id number] Dec, [facility] [address] [id number] [address] [place] [id number] May, [facility] [address] [id number] [address] [place] [id number] Mar, [facility] [address] [id number] [address] [place] [id number] Mar, [facility] [address] [id number] [address] [place] [id number] 14 Jan, 2009 IMMUNIZATIONS No Known Immunizations [...]
--- OUTSIDE RECORDS SUMMARY | 2020-01-28 13:08 | XMS REPORT ---
Author Author Heydi Candelario Doctor Organization [facility] Address Unknown Phone Unavailable Care Team Providers Care Electrical Controls Technician Name Role Phone Migration, Doctor Unavailable Unavailable PROBLEMS Type Condition ICD9-CM Code [id number] Code Onset Dates Condition S tatus SNOMED Code Problem Chronic pain syndrome G89.4 Active 551194018 Problem Sore throat J02.9 Active 60076467 3 Problem Choriocarcinoma C58 Active 1881 60731 Problem [facility] current use of anticoagulant Z79.01 Active 559442367 Problem History of venous thromboembolism V12.51 Active 401955997 Problem Cellulitis of unspecified part of limb L03.119 Active 890909772 Problem Gastroesophageal reflux disease without esophagitis K21.9 Active 042163499 Problem History of pulmonary embolism Z86.711 Active 417094564 Problem Pseudotumor cerebri G93.2 Active 93918855 Problem History of DVT (deep vein thrombosis) Z86.718 Active 331642716 ALLERGIES No Information ENCOUNTERS Encounter Location Date Diagnosis [place] [address] [place] [id number] [address] [place] [id number] 14 Nov, 2019 Encounter for screening labo ratory testing for COVID-19 virus Z11.59 [place] [address] [place] [id number] [address] [place] [address] 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, 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 [place] [id number] [facility] [id number] [address] [place] [address] Apr, [facility] current use of ant icoagulant Z79.01 [place] [address] [facility] [id number] [address] [place] [address] Apr, Cellulitis of unspecified pa rt of limb L03.119 ; Allergic contact dermatitis due to adhesives L23.1 and Chronic pain syndrome G89.4 [place] [address] [address] Apr, [facility] [address] [address] Apr, [facility] current use of ant icoagulant Z79.01 ; Cellulitis of unspecified part of limb L03.119 ; Chronic pain syndrome G89.4 and Anxiety F41.9 [place] [address] [address] Apr, [facility] [address] [address] Apr, [place] [address] [address] Mar, [place] [address] [address] Mar, [place] [address] [address] Mar, Sore throat J02.9 ; Gastroes ophageal reflux disease without esophagitis K21.9 ; Pseudotumor cerebri G93.2 ; Chronic pain syndrome G89.4 ; Choriocarcinoma C58 ; History of pulmonary embolism Z86.711 ; History of DVT (deep vein thrombosis) Z86.718 ; Anxiety F41.9 and Tachycardia R00.0 [place] [address] [place] [id number] [address] [place] [address] Feb, Anxiety 300.00 and Chronic p ain 338.29 [facility] [address] [place] [id number] [address] [place] [address] Feb, [facility] [address] [address] Feb, [facility] [address] [place] [id number] [address] [place] [address] Jan, 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.61 and Dysuria 788.1 [place] [address] [place] [id number] [address] [place] [address] Jan, Dysuria 788.1 [place] [address] [address] Jan, Anxiety 300.00 and Chronic p ain 338.29 [place] [address] [address] Jan, [place] [address] [address] Jan, [place] [address] [address] Jan, [place] [address] [address] Dec, Weakness 780.79 [place] [address] [address] Dec, 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.[address] [address] Dec, Palpitations 785.1 ; Tremor 781.0 ; Weakness 780.79 ; [facility] current use of anticoagulant therapy V58.61 and Yeast vaginitis 112.1 [place] [address] [place] [id number] [address] [place] [address] Dec, [place] [address] [address] Dec, Cervicalgia 723.1 ; Tachycar yoseph 785.0 ; Pseudotumor cerebri 348.2 and History of venous thromboembolism V12.51 [place] [address] [address] Nov, [place] [address] [place] [id number] [address] [place] [address] Nov, [place] [address] [place] [address] [place] [address] 24 Nov, 2014 Tachycardia 785.0 ; Pseudotu mor cerebri 348.2 ; Anxiety 300.00 and History of venous thromboembolism V12.51 [facility] [address] [id number] [address] [place] [address] 19 Nov, 2014 [facility] [address] [id number] [address] [place] [address] 18 Nov, 2014 [facility] [address] [id number] [address] [place] [address] 16 Nov, 2014 [facility] [address] [id number] [address] [place] [address] Nov, [facility] [address] [facility] [id number] [address] [place] [address] Nov, [facility] [address] [facility] [id number] [address] [place] [address] Nov, [facility] [address] [id number] [address] [place] [address] Nov, [facility] [address] [facility] [id number] [address] [place] [address] October, [facility] [address] [facility] [id number] [address] [place] [address] October, [facility] [address] [facility] [id number] [address] [place] [address] October, Pain in thoracic spine 724.1 and Tachycardia 785.0 [facility] [address] [id number] [address] [place] [address] October, [facility] [address] [facility] [id number] [address] [place] [address] October, [facility] [address] [facility] [id number] [address] [place] [address] 14 Sep, 2014 [facility] [address] [facility] [id number] [address] [place] [address] Sep, [facility] [address] [id number] [address] [place] [address], [place] [address] Aug, [facility] [address] [id number] [address] [place] [address], [place] [address] Aug, [facility] [address] [id number] [address] [place] [address], [place] [address] Aug, [facility] [address] [id number] [address] [place] [address], [place] [address] Aug, [facility] [address] [id number] [address] [place] [address], [place] [address] Aug, [facility] [address] [id number] [address] [place] [address], [place] [address] Aug, [facility] [address] [id number] [address] [place] [address], [place] [address] Aug, [facility] [address] [id number] [address] [place] [address], [place] [address] Aug, [facility] [address] [id number] [address] [place] [address], [place] [address] Aug, [facility] [address] [id number] [address] [place] [address], [place] [address] Aug, [facility] [address] [id number] [address] [place] [address], [place] [address] Aug, [facility] [address] [id number] [address] [place] [address], [place] [address] Aug, [facility] [address] [id number] [address] [place] [address], [place] [address] Jul, [facility] [address] [id number] [address] [place] [address], [place] [address] Jul, [facility] [address] [id number] [address] [place] [address], [place] [address] Jul, [facility] [address] [id number] [address] [place] [address], [place] [address] 23 Jul, 2014 [facility] [address] [id number] [address] [place] [address], [place] [address] 23 Jul, 2014 [facility] [address] [id number] [address] [place] [address], [place] [address] 23 Jul, 2014 [facility] [address] [id number] [address] [place] [address], [place] [address] 23 Jul, 2014 [facility] [address] [id number] [address] [place] [address], [place] [address] 23 Jul, 2014 [facility] [address] [id number] [address] [place] [address], [place] [address] 20 Jul, 2014 [facility] [address] [id number] [address] [place] [address], [place] [address] 20 Jul, 2014 [facility] [address] [id number] [address] [place] [address] 19 Jul, 2014 [facility] [address] [id number] [address] [place] [address], [place] [address] 19 Jul, 2014 [facility] [address] [id number] [address] [place] [id number] 17 Jul, 2014 [facility] [address] [id number] [address] [place] [address] 17 Jul, 2014 [facility] [address] [id number] [address] [place] [address] 16 Jul, 2014 [facility] [address] [id number] [address] [place] [address], [place] [address] 16 Jul, 2014 [facility] [address] [id number] [address] [place] [id number] 16 Jul, 2014 [facility] [address] [id number] [address] [place] [address] 16 Jul, 2014 [facility] [address] [id number] [address] [place] [address], [place] [address] 13 Jul, 2014 [facility] [address] [id number] [address] [place] [address], [place] [address] Jul, 2014 [facility] [address] [id number] [address] [place] [address], [place] [address] Jul, 2014 [facility] [address] [id number] [address] [place] [address], [place] [address] Jul, 2014 [facility] [address] [id number] [address] [place] [address], [place] [address] Jul, 2014 [facility] [address] [id number] [address] [place] [address], [place] [address] Jul, [facility] [address] [id number] [address] [place] [address], [place] [address] Jul, 2014 [facility] [address] [id number] [address] [place] [address], [place] [address] Jul, [facility] [address] [id number] [address] [place] [address], [place] [address] Jul, [facility] [address] [id number] [address] [place] [address], [place] [address] Jul, [facility] [address] [id number] [address] [place] [address] Jul, [facility] [address] [id number] [address] [place] [id number] Jul, [facility] [address] [id number] [address] [place] [address], [place] [address] Jun, [facility] [address] [id number] [address] [place] [address] Jun, [facility] [address] [id number] [address] [place] [address] Jun, [facility] [address] [id number] [address] [place] [address] Jun, [facility] [address] [id number] [address] [place] [address], [place] [address] Jun, [facility] [address] [id number] [address] [place] [address], [place] [address] Jun, [facility] [address] [id number] [address] [place] [address], [place] [address] Jun, [facility] [address] [id number] [address] [place] [address], [place] [address] Jun, [facility] [address] [id number] [address] [place] [address], [place] [address] Jun, [facility] [address] [id number] [address] [place] [address], [place] [address] Jun, [facility] [address] [id number] [address] [place] [address], [place] [address] Jun, [facility] [address] [id number] [address] [place] [address], [place] [address] Jun, [facility] [address] [id number] [address] [place] [address], [place] [address] Jun, [facility] [address] [id number] [address] [place] [address], [place] [address] Jun, [facility] [address] [id number] [address] [place] [address], [place] [address] Jun, [facility] [address] [id number] [address] [place] [address], [place] [address] Jun, [facility] [address] [id number] [address] [place] [address], [place] [address] Jun, [facility] [address] [id number] [address] [place] [address], [place] [address] Jun, [facility] [address] [id number] [address] [place] [address], [place] [address] Jun, [facility] [address] [id number] [address] [place] [address], [place] [address] Jun, [facility] [address] [id number] [address] [place] [address], [place] [address] May, [facility] [address] [id number] [address] [place] [address], [place] [address] May, [facility] [address] [id number] [address] [place] [address], [place] [address] May, [facility] [address] [id number] [address] [place] [address], [place] [address] May, [facility] [address] [id number] [address] [place] [address], [place] [address] May, [facility] [address] [id number] [address] [place] [address], [place] [address] May, [facility] [address] [id number] [address] [place] [address], [place] [address] May, [facility] [address] [id number] [address] [place] [address], [place] [address] May, [facility] [address] [id number] [address] [place] [address], [place] [address] May, [facility] [address] [id number] [address] [place] [address], [place] [address] May, [facility] [address] [id number] [address] [place] [address], [place] [address] May, [facility] [address] [id number] [address] [place] [address], [place] [address] 18 May, 2014 [facility] [address] [id number] [address] [place] [address], [place] [address] 18 May, 2014 [facility] [address] [id number] [address] [place] [address], [place] [address] 17 May, 2014 [facility] [address] [id number] [address] [place] [address], [place] [address] 16 May, 2014 [facility] [address] [id number] [facility] [place] [address] 16 May, 2014 [facility] [address] [id number] [facility] [place] [address] 15 May, 2014 [facility] [address] [id number] [address] [place] [address], [place] [address] 15 May, 2014 [facility] [address] [id number] [address] [place] [address], [place] [address] May, [facility] [address] [id number] [address] [place] [address], [place] [address] May, [facility] [address] [id number] [address] [place] [address], [place] [address] May, [facility] [address] [id number] [address] [place] [address], [place] [address] May, [facility] [address] [id number] [address] [place] [address], [place] [address] May, [facility] [address] [id number] [address] [place] [address], [place] [address] May, [facility] [address] [id number] [address] [place] [address], [place] [address] May, [facility] [address] [id number] [address] [place] [address], [place] [address] May, [facility] [address] [id number] [address] [place] [address], [place] [address] May, [facility] [address] [id number] [address] [place] [address], [place] [address] May, [facility] [address] [id number] [address] [place] [address], [place] [address] May, [facility] [address] [id number] [address] [place] [address], [place] [address] May, [facility] [address] [id number] [address] [place] [address], [place] [address] 05 May, 2014 [facility] [address] [id number] [address] [place] [address], [place] [address] May, [facility] [address] [id number] [address] [place] [address], [place] [address] May, [facility] [address] [id number] [address] [place] [address], [place] [address] May, [facility] [address] [id number] [address] [place] [address], [place] [address] Apr, [facility] [address] [id number] [address] [place] [address], [place] [address] Apr, [facility] [address] [id number] [address] [place] [address], [place] [address] Apr, [facility] [address] [id number] [address] [place] [address], [place] [address] Apr, [facility] [address] [id number] [address] [place] [address], [place] [address] Apr, [facility] [address] [id number] [address] [place] [address], [place] [address] Apr, [facility] [address] [id number] [address] [place] [address], [place] [address] Apr, [facility] [address] [id number] [address] [place] [address], [place] [address] Apr, [facility] [address] [id number] [address] [place] [address], [place] [address] Apr, [facility] [address] [id number] [address] [place] [address], [place] [address] Apr, [facility] [address] [id number] [address] [place] [address], [place] [address] Mar, [facility] [address] [id number] [address] [place] [address], [place] [address] Mar, [facility] [address] [id number] [address] [place] [address], [place] [address] 31 Mar, 2013 [facility] [address] [id number] [address] [place] [address], [place] [address] Mar, 2013 [facility] [address] [id number] [address] [place] [address], [place] [address] 30 Mar, 2014 [facility] [address] [id number] [address] [place] [address], [place] [address] 30 Mar, 2014 [facility] [address] [id number] [address] [place] [address], [place] [address] Mar, [facility] [address] [id number] [address] [place] [address], [place] [address] Mar, [facility] [address] [id number] [address] [place] [address], [place] [address] Mar, [facility] [address] [id number] [address] [place] [address], [place] [address] Mar, [facility] [address] [id number] [address] [place] [address], [place] [address] Mar, [facility] [address] [id number] [address] [place] [address], [place] [address] Mar, [facility] [address] [id number] [address] [place] [address], [place] [address] Mar, [facility] [address] [id number] [address] [place] [address], [place] [address] Mar, [facility] [address] [id number] [address] [place] [address], [place] [address] Mar, [facility] [address] [id number] [address] [place] [address], [place] [address] Mar, [facility] [address] [id number] [address] [place] [address], [place] [address] Mar, [facility] [address] [id number] [address] [place] [id number] Mar, [facility] [address] [id number] [address] [place] [address], [place] [address] Mar, [facility] [address] [id number] [address] [place] [address], [place] [address] Mar, [facility] [address] [id number] [address] [place] [address], [place] [address] 05 Sep, 2013 [facility] [address] [id number] [address] [place] [address], [place] [address] 05 Sep, 2013 [facility] [address] [id number] [address] [place] [address], [place] [address] 04 Feb, 2013 [facility] [address] [id number] [address] [place] [address], [place] [address] 04 Feb, 2013 [facility] [address] [id number] [address] [place] [address], [place] [address] Feb, 2013 [facility] [address] [id number] [address] [place] [address], [place] [address] Feb, 2013 [facility] [address] [id number] [address] [place] [address], [place] [address] Feb, 2013 [facility] [address] [id number] [address] [place] [address], [place] [address] Feb, 2013 [facility] [address] [id number] [address] [place] [address], [place] [address] Feb, 2013 [facility] [address] [id number] [address] [place] [address], [place] [address] Feb, 2013 [facility] [address] [id number] [address] [place] [address], [place] [address] Jan, [facility] [address] [id number] [address] [place] [address], [place] [address] Jan, [facility] [address] [id number] [address] [place] [address], [place] [address] Jan, [facility] [address] [id number] [facility] [place] [address] Jan, [facility] [address] [id number] [facility] [place] [address] Jan, [facility] [address] [id number] [facility] [place] [address] Jan, [facility] [address] [id number] [address] [place] [address], [place] [address] Jan, [facility] [address] [id number] [address] [place] [address], [place] [address] Jan, [facility] [address] [id number] [address] [place] [address], [place] [address] Jan, [facility] [address] [id number] [address] [place] [address], [place] [address] Jan, [facility] [address] [id number] [address] [place] [address], [place] [address] Jan, [facility] [address] [id number] [address] [place] [address], [place] [address] Jan, [facility] [address] [id number] [address] [place] [address], [place] [address] Dec, [facility] [address] [id number] [address] [place] [address], [place] [address] Dec, [facility] [address] [id number] [address] [place] [address], [place] [address] Dec, [facility] [address] [id number] [address] [place] [address], [place] [address] Dec, [facility] [address] [id number] [address] [place] [address], [place] [address] Dec, [facility] [address] [id number] [address] [place] [address], [place] [address] Dec, [facility] [address] [id number] [address] [place] [address], [place] [address] Dec, [facility] [address] [id number] [address] [place] [address], [place] [address] Dec, 2013 [facility] [address] [id number] [address] [place] [address], [place] [address] Dec, [facility] [address] [id number] [address] [place] [address], [place] [address] Dec, [facility] [address] [id number] [address] [place] [address], [place] [address] Dec, [facility] [address] [id number] [address] [place] [address], [place] [address] Dec, [facility] [address] [id number] [address] [place] [address], [place] [address] Nov, [facility] [address] [id number] [address] [place] [address], [place] [address] Nov, [facility] [address] [id number] [address] [place] [address], [place] [address] Nov, [facility] [address] [id number] [address] [place] [address], [place] [address] Nov, [facility] [address] [id number] [address] [place] [address], [place] [address] Nov, [facility] [address] [id number] [address] [place] [address], [place] [address] Nov, [facility] [address] [id number] [address] [place] [address], [place] [address] Nov, [facility] [address] [id number] [address] [place] [address], [place] [address] Nov, [facility] [address] [id number] [address] [place] [address], [place] [address] Nov, [facility] [address] [id number] [address] [place] [address], [place] [address] Nov, [facility] [address] [id number] [address] [place] [address], [place] [address] Nov, [facility] [address] [id number] [address] [place] [address], [place] [address] Nov, [facility] [address] [id number] [address] [place] [address], [place] [address] Nov, [facility] [address] [id number] [address] [place] [address], [place] [address] Nov, [facility] [address] [id number] [address] [place] [address], [place] [address] October, [facility] [address] [id number] [address] [place] [address], [place] [address] October, [facility] [address] [id number] [address] [place] [address], [place] [address] October, [facility] [address] [id number] [address] [place] [address], [place] [address] October, [facility] [address] [id number] [address] [place] [address], [place] [address] October, [facility] [address] [id number] [address] [place] [address], [place] [address] October, [facility] [address] [id number] [address] [place] [address], [place] [address] October, [facility] [address] [id number] [address] [place] [address], [place] [address] October, [facility] [address] [id number] [address] [place] [address], [place] [address] October, [facility] [address] [id number] [address] [place] [address], [place] [address] October, [facility] [address] [id number] [address] [place] [address], [place] [address] October, [facility] [address] [id number] [address] [place] [address], [place] [address] October, [facility] [address] [id number] [facility] [place] [address] Sep, [facility] [address] [id number] [facility] [place] [address] Sep, [facility] [address] [id number] [facility] [place] [address] Sep, [facility] [address] [id number] [address] [place] [address], [place] [address] Sep, [facility] [address] [id number] [address] [place] [address], [place] [address] Sep, [facility] [address] [id number] [address] [place] [address], [place] [address] Sep, [facility] [address] [id number] [address] [place] [address], [place] [address] Aug, [facility] [address] [id number] [address] [place] [address], [place] [address] Aug, [facility] [address] [id number] [address] [place] [address], [place] [address] Aug, [facility] [address] [id number] [address] [place] [address], [place] [address] Aug, [facility] [address] [id number] [address] [place] [address], [place] [address] Aug, [facility] [address] [id number] [address] [place] [address], [place] [address] Aug, [facility] [address] [id number] [address] [place] [address], [place] [address] Jul, [facility] [address] [id number] [address] [place] [address], [place] [address] Jul, [facility] [address] [id number] [address] [place] [address], [place] [address] Jul, [facility] [address] [id number] [address] [place] [address], [place] [address] Jul, [facility] [address] [id number] [address] [place] [address], [place] [address] Jul, [facility] [address] [id number] [address] [place] [address], [place] [address] Jul, [facility] [address] [id number] [address] [place] [address], [place] [address] Jul, [facility] [address] [id number] [address] [place] [address], [place] [address] Jul, [facility] [address] [id number] [address] [place] [address], [place] [address] Jul, [facility] [address] [id number] [address] [place] [address], [place] [address] Jul, [facility] [address] [id number] [address] [place] [address], [place] [address] Jun, [facility] [address] [id number] [address] [place] [address], [place] [address] Jun, [facility] [address] [id number] [address] [place] [address], [place] [address] Jun, [facility] [address] [id number] [address] [place] [address], [place] [address] Jun, [facility] [address] [id number] [address] [place] [address], [place] [address] Jun, [facility] [address] [id number] [address] [place] [address], [place] [address] Jun, [facility] [address] [id number] [address] [place] [address], [place] [address] Jun, [facility] [address] [id number] [address] [place] [address], [place] [address] Jun, [facility] [address] [id number] [address] [place] [address], [place] [address] May, [facility] [address] [id number] [address] [place] [address], [place] [address] May, [facility] [address] [id number] [address] [place] [address], [place] [address] May, [facility] [address] [id number] [address] [place] [address], [place] [address] May, [facility] [address] [id number] [address] [place] [address], [place] [address] May, [facility] [address] [id number] [address] [place] [address], [place] [address] May, [facility] [address] [id number] [address] [place] [address], [place] [address] May, [facility] [address] [id number] [address] [place] [address], [place] [address] May, [facility] [address] [id number] [address] [place] [address], [place] [address] Apr, [facility] [address] [id number] [address] [place] [address], [place] [address] Apr, [facility] [address] [id number] [address] [place] [address], [place] [address] Apr, [facility] [address] [id number] [address] [place] [address], [place] [address] Apr, [facility] [address] [id number] [address] [place] [address], [place] [address] Apr, [facility] [address] [id number] [address] [place] [address], [place] [address] Apr, [facility] [address] [id number] [address] [place] [address], [place] [address] Mar, [facility] [address] [id number] [address] [place] [address], [place] [address] Mar, [facility] [address] [id number] [address] [place] [address], [place] [address] Mar, [facility] [address] [id number] [address] [place] [address], [place] [address] Mar, [facility] [address] [id number] [address] [place] [address], [place] [address] Mar, [facility] [address] [id number] [address] [place] [address], [place] [address] Mar, [facility] [address] [id number] [address] [place] [address], [place] [address] Mar, [facility] [address] [id number] [address] [place] [address], [place] [address] 30 Feb, 2013 [facility] [address] [id number] [address] [place] [address], [place] [address] 30 Feb, 2013 [facility] [address] [id number] [address] [place] [address], [place] [address] Feb, [facility] [address] [id number] [address] [place] [address], [place] [address] Feb, [facility] [address] [id number] [address] [place] [address], [place] [address] Feb, [facility] [address] [id number] [address] [place] [address], [place] [address] Feb, [facility] [address] [id number] [address] [place] [address], [place] [address] Jan, [facility] [address] [id number] [address] [place] [address], [place] [address] Jan, [facility] [address] [id number] [address] [place] [address], [place] [address] Jan, [facility] [address] [id number] [address] [place] [address], [place] [address] Jan, [facility] [address] [id number] [address] [place] [address], [place] [address] Jan, [facility] [address] [id number] [address] [place] [address], [place] [address] Jan, [facility] [address] [id number] [address] [place] [address], [place] [address] Jan, [facility] [address] [id number] [address] [place] [address], [place] [address] Jan, [facility] [address] [id number] [address] [place] [address], [place] [address] Jan, [facility] [address] [id number] [address] [place] [address], [place] [address] Dec, [facility] [address] [id number] [address] [place] [address], [place] [address] Dec, [facility] [address] [id number] [address] [place] [address], [place] [address] Dec, [facility] [address] [id number] [address] [place] [address], [place] [address] Dec, [facility] [address] [id number] [address] [place] [address], [place] [address] Dec, [facility] [address] [id number] [address] [place] [address], [place] [address] Dec, [facility] [address] [id number] [address] [place] [address], [place] [address] Dec, [facility] [address] [id number] [address] [place] [address], [place] [address] Dec, [facility] [address] [id number] [address] [place] [address], [place] [address] Dec, [facility] [address] [id number] [address] [place] [address], [place] [address] Dec, [facility] [address] [id number] [address] [place] [address], [place] [address] Dec, [facility] [address] [id number] [address] [place] [address], [place] [address] Dec, [facility] [address] [id number] [address] [place] [address], [place] [address] Dec, [facility] [address] [id number] [address] [place] [address], [place] [address] Nov, [facility] [address] [id number] [address] [place] [address], [place] [address] Nov, [facility] [address] [id number] [address] [place] [address], [place] [address] Nov, [facility] [address] [id number] [address] [place] [address], [place] [address] Nov, [facility] [address] [id number] [address] [place] [address], [place] [address] October, [facility] [address] [id number] [address] [place] [address], [place] [address] October, [facility] [address] [id number] [address] [place] [address], [place] [address] October, [facility] [address] [id number] [address] [place] [address], [place] [address] October, [facility] [address] [id number] [address] [place] [address], [place] [address] October, [facility] [address] [id number] [address] [place] [address], [place] [address] October, [facility] [address] [id number] [address] [place] [address], [place] [address] Sep, [facility] [address] [id number] [address] [place] [address], [place] [address] Sep, [facility] [address] [id number] [address] [place] [address], [place] [address] Sep, [facility] [address] [id number] [address] [place] [address], [place] [address] Sep, [facility] [address] [id number] [address] [place] [address], [place] [address] 19 Sep, 2012 [facility] [address] [id number] [address] [place] [address], [place] [address] 16 Sep, 2012 [facility] [address] [id number] [address] [place] [address], [place] [address] Sep, [facility] [address] [id number] [address] [place] [address], [place] [address] Sep, [facility] [address] [id number] [address] [place] [address], [place] [address] Sep, [facility] [address] [id number] [address] [place] [address], [place] [address] Sep, [facility] [address] [id number] [address] [place] [address], [place] [address] Sep, [facility] [address] [id number] [address] [place] [address], [place] [address] Aug, [facility] [address] [id number] [address] [place] [address], [place] [address] Aug, [facility] [address] [id number] [address] [place] [address], [place] [address] 25 Aug, 2012 [facility] [address] [id number] [address] [place] [address], [place] [address] Aug, [facility] [address] [id number] [address] [place] [address], [place] [address] 19 Aug, 2012 [facility] [address] [id number] [address] [place] [address], [place] [address] 18 Aug, 2012 [facility] [address] [id number] [address] [place] [address], [place] [address] 17 Aug, 2012 [facility] [address] [id number] [address] [place] [address], [place] [address] 15 Aug, 2012 [facility] [address] [id number] [address] [place] [address], [place] [address] 15 Aug, 2012 [facility] [address] [id number] [address] [place] [address], [place] [address] Aug, [facility] [address] [id number] [address] [place] [address], [place] [address] Aug, [facility] [address] [id number] [address] [place] [address], [place] [address] Aug, [facility] [address] [id number] [address] [place] [address], [place] [address] Jul, [facility] [address] [id number] [address] [place] [address], [place] [address] Jul, [facility] [address] [id number] [address] [place] [address], [place] [address] Jul, [facility] [address] [id number] [address] [place] [address], [place] [address] Jul, [facility] [address] [id number] [address] [place] [address], [place] [address] Jul, [facility] [address] [id number] [address] [place] [address], [place] [address] Jul, [facility] [address] [id number] [address] [place] [address], [place] [address] Jul, [facility] [address] [id number] [address] [place] [address], [place] [address] Jul, [facility] [address] [id number] [address] [place] [address], [place] [address] Jul, [facility] [address] [id number] [address] [place] [address], [place] [address] Jul, [facility] [address] [id number] [address] [place] [address], [place] [address] May, [facility] [address] [id number] [id number] May, [facility] [address] [id number] [address] [address] May, [facility] [address] [id number] [address] [place] [address] May, [facility] [address] [id number] [address] [place] [id number] May, [facility] [address] [id number] [address] [place] [address] Apr, [facility] [address] [id number] [place] [id number] Apr, [facility] [address] [id number] [address] [place] [id number] Apr, [facility] [address] [id number] [address] [place] [id number] Mar, [facility] [address] [id number] [place] [id number] Mar, [facility] [address] [id number] [address] [place] [phone] Mar, [facility] [address] [id number] [place] [id number] Feb, [facility] [address] [id number] [address] [place] [id number] Feb, [facility] [address] [id number] [address] [place] [id number] Feb, [facility] [address] [id number] [place] [id number] Feb, [facility] [address] [id number] [place] [id number] Feb, [facility] [address] [id number] [place] [id number] Jan, [facility] [address] [id number] [address] [place] [id number] Jan, [facility] [address] [id number] [place] [id number] Jan, [facility] [address] [id number] [place] [id number] Jan, [facility] [address] [id number] [place] [id number] Jan, [facility] [address] [facility] [id number] [place] [address] Jan, [facility] [address] [facility] [id number] [address] [place] [phone] Jan, [facility] [address] [facility] [id number] [address] [place] [id number] Aug, [facility] [address] [id number] [place] [id number] Aug, [facility] [address] [facility] [id number] [address] [place] [id number] Jul, [facility] [address] [facility] [id number] [address] [place] [id number] Jul, [facility] [address] [facility] [id number] [address] [place] [id number] Jul, [facility] [address] [id number] [place] [id number] Jul, 2011 [facility] [address] [facility] [id number] [address] [place] [id number] Jul, [facility] [address] [id number] [place] [id number] Jul, [facility] [address] [facility] [id number] [address] [place] [id number] Jul, [facility] [address] [id number] [place] [id number] Jul, [facility] [address] [id number] [place] [id number] Jul, [facility] [address] [id number] [place] [id number] Jul, [facility] [address] [facility] [id number] [address] [place] [id number] May, [facility] [address] [id number] [address] [place] [id number] May, [facility] [address] [id number] [address] [place] [id number] May, [facility] [address] [id number] [address] [place] [id number] Apr, [facility] [address] [id number] [address] [place] [id number] Jan, [facility] [address] [id number] [address] [place] [id number] Jan, [facility] [address] [id number] [address] [place] [id number] Dec, [facility] [address] [id number] [address] [place] [id number] Dec, [facility] [address] [id number] [address] [place] [id number] May, [facility] [address] [id number] [address] [place] [id number] Mar, [facility] [address] [id number] [address] [place] [id number] Mar, [facility] [address] [id number] [address] [place] [id number] 14 Jan, 2009 IMMUNIZATIONS No Known Immunizations [...]
--- OUTSIDE RECORDS SUMMARY | 2020-01-28 13:08 | XMS REPORT ---
Author Author Heydi Candelario Doctor Organization [facility] Address Unknown Phone Unavailable Care Team Providers Care Worship Pastor Name Role Phone Migration, Doctor Unavailable Unavailable PROBLEMS Type Condition ICD9-CM Code ANX91-BY Code Onset Dates Condition S tatus SNOMED Code Problem Chronic pain syndrome G89.4 Active 069522017 Problem Sore throat J02.9 Active 94800363 3 Problem Choriocarcinoma C58 Active 1881 68888 Problem retirement current use of anticoagulant Z79.01 Active 835284044 Problem History of venous thromboembolism V12.51 Active 570448941 Problem Cellulitis of unspecified part of limb L03.119 Active 838167537 Problem Gastroesophageal reflux disease without esophagitis K21.9 Active 164272696 Problem History of pulmonary embolism Z86.711 Active 098968617 Problem Pseudotumor cerebri G93.2 Active 07864866 Problem History of DVT (deep vein thrombosis) Z86.718 Active 113142492 ALLERGIES No Information ENCOUNTERS Encounter Location Date Diagnosis [place] [address] [place] [id number] [address] [place] [address] 14 Nov, 2019 Encounter for screening labo ratory testing for COVID-19 virus Z11.59 [place] [address] [place] [id number] [address] [place] [address] 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 [id number] [address] [place] [address] Apr, retirement current use of ant icoagulant Z79.01 [place] [address] [facility] [id number] [address] [place] [address] Apr, Cellulitis of unspecified pa rt of limb L03.119 ; Allergic contact dermatitis due to adhesives L23.1 and Chronic pain syndrome G89.4 [place] [address] [address] Apr, [facility] [address] [address] Apr, retirement current use of ant icoagulant Z79.01 ; Cellulitis of unspecified part of limb L03.119 ; Chronic pain syndrome G89.4 and Anxiety F41.9 [place] [address] [address] Apr, [facility] [address] [address] Apr, [place] [address] [address] Mar, [place] [address] [address] Mar, [place] [address] [address] Mar, Sore throat J02.9 ; Gastroes ophageal reflux disease without esophagitis K21.9 ; Pseudotumor cerebri G93.2 ; Chronic pain syndrome G89.4 ; Choriocarcinoma C58 ; History of pulmonary embolism Z86.711 ; History of DVT (deep vein thrombosis) Z86.718 ; Anxiety F41.9 and Tachycardia R00.0 [place] [address] [place] [id number] [address] [place] [address] Feb, Anxiety 300.00 and Chronic p ain 338.29 [facility] [address] [place] [id number] [address] [place] [address] Feb, [facility] [address] [address] Feb, [facility] [address] [place] [id number] [address] [place] [address] Jan, 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 therapy V58.61 and Dysuria 788.1 [place] [address] [place] [id number] [address] [place] [address] Jan, Dysuria 788.1 [place] [address] [address] Jan, Anxiety 300.00 and Chronic p ain 338.29 [place] [address] [address] Jan, [place] [address] [address] Jan, [place] [address] [address] Jan, [place] [address] [address] Dec, Weakness 780.79 [place] [address] [address] Dec, 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 therapy V58.[address] [address] Dec, Palpitations 785.1 ; Tremor 781.0 ; Weakness 780.79 ; retirement current use of anticoagulant therapy V58.61 and Yeast vaginitis 112.1 [place] [address] [place] [id number] [address] [place] [address] Dec, [place] [address] [address] Dec, Cervicalgia 723.1 ; Tachycar yoseph 785.0 ; Pseudotumor cerebri 348.2 and History of venous thromboembolism V12.51 [place] [address] [address] Nov, [place] [address] [place] [id number] [address] [place] [address] Nov, [place] [address] [place] [id number] [place] [address] 24 Nov, 2014 Tachycardia 785.0 ; Pseudotu mor cerebri 348.2 ; Anxiety 300.00 and History of venous thromboembolism V12.51 [facility] [address] [id number] [address] [place] [address] 19 Nov, 2014 [facility] [address] [id number] [address] [place] [address] 18 Nov, 2014 [facility] [address] [id number] [address] [place] [address] 16 Nov, 2014 [facility] [address] [id number] [address] [place] [address] Nov, [facility] [address] [facility] [id number] [address] [place] [address] Nov, [facility] [address] [facility] [id number] [address] [place] [address] Nov, [facility] [address] [id number] [address] [place] [address] Nov, [facility] [address] [facility] [id number] [address] [place] [address] October, [facility] [address] [facility] [id number] [address] [place] [address] October, [facility] [address] [facility] [id number] [address] [place] [address] October, Pain in thoracic spine 724.1 and Tachycardia 785.0 [facility] [address] [id number] [address] [place] [address] October, [facility] [address] [facility] [id number] [address] [place] [address] October, [facility] [address] [facility] [id number] [address] [place] [address] 14 Sep, 2014 [facility] [address] [facility] [id number] [address] [place] [address] Sep, [facility] [address] [id number] [address] [place] [address], [place] [address] Aug, [facility] [address] [id number] [address] [place] [address], [place] [address] Aug, [facility] [address] [id number] [address] [place] [address], [place] [address] Aug, [facility] [address] [id number] [address] [place] [address], [place] [address] Aug, [facility] [address] [id number] [address] [place] [address], [place] [address] Aug, [facility] [address] [id number] [address] [place] [address], [place] [address] Aug, [facility] [address] [id number] [address] [place] [address], [place] [address] Aug, [facility] [address] [id number] [address] [place] [address], [place] [address] Aug, [facility] [address] [id number] [address] [place] [address], [place] [address] Aug, [facility] [address] [id number] [address] [place] [address], [place] [address] Aug, [facility] [address] [id number] [address] [place] [address], [place] [address] Aug, [facility] [address] [id number] [address] [place] [address], [place] [address] Aug, [facility] [address] [id number] [address] [place] [address], [place] [address] Jul, [facility] [address] [id number] [address] [place] [address], [place] [address] Jul, [facility] [address] [id number] [address] [place] [address], [place] [address] Jul, [facility] [address] [id number] [address] [place] [address], [place] [address] 23 Jul, 2014 [facility] [address] [id number] [address] [place] [address], [place] [address] 23 Jul, 2014 [facility] [address] [id number] [address] [place] [address], [place] [address] 23 Jul, 2014 [facility] [address] [id number] [address] [place] [address], [place] [address] 23 Jul, 2014 [facility] [address] [id number] [address] [place] [address], [place] [address] 23 Jul, 2014 [facility] [address] [id number] [address] [place] [address], [place] [address] 20 Jul, 2014 [facility] [address] [id number] [address] [place] [address], [place] [address] 20 Jul, 2014 [facility] [address] [id number] [address] [place] [address] 19 Jul, 2014 [facility] [address] [id number] [address] [place] [address], [place] [address] 19 Jul, 2014 [facility] [address] [id number] [address] [place] [address] 17 Jul, 2014 [facility] [address] [id number] [address] [place] [address] 17 Jul, 2014 [facility] [address] [id number] [address] [place] [address] 16 Jul, 2014 [facility] [address] [id number] [address] [place] [address], [place] [address] 16 Jul, 2014 [facility] [address] [id number] [address] [place] [address] 16 Jul, 2014 [facility] [address] [id number] [address] [place] [address] 16 Jul, 2014 [facility] [address] [id number] [address] [place] [address], [place] [address] 13 Jul, 2014 [facility] [address] [id number] [address] [place] [address], [place] [address] Jul, 2014 [facility] [address] [id number] [address] [place] [address], [place] [address] Jul, 2014 [facility] [address] [id number] [address] [place] [address], [place] [address] Jul, 2014 [facility] [address] [id number] [address] [place] [address], [place] [address] Jul, 2014 [facility] [address] [id number] [address] [place] [address], [place] [address] Jul, [facility] [address] [id number] [address] [place] [address], [place] [address] Jul, 2014 [facility] [address] [id number] [address] [place] [address], [place] [address] Jul, [facility] [address] [id number] [address] [place] [address], [place] [address] Jul, [facility] [address] [id number] [address] [place] [address], [place] [address] Jul, [facility] [address] [id number] [address] [place] [address] Jul, [facility] [address] [id number] [address] [place] [address] Jul, [facility] [address] [id number] [address] [place] [address], [place] [address] Jun, [facility] [address] [id number] [address] [place] [address] Jun, [facility] [address] [id number] [address] [place] [address] Jun, [facility] [address] [id number] [address] [place] [address] Jun, [facility] [address] [id number] [address] [place] [address], [place] [address] Jun, [facility] [address] [id number] [address] [place] [address], [place] [address] Jun, [facility] [address] [id number] [address] [place] [address], [place] [address] Jun, [facility] [address] [id number] [address] [place] [address], [place] [address] Jun, [facility] [address] [id number] [address] [place] [address], [place] [address] Jun, [facility] [address] [id number] [address] [place] [address], [place] [address] Jun, [facility] [address] [id number] [address] [place] [address], [place] [address] Jun, [facility] [address] [id number] [address] [place] [address], [place] [address] Jun, [facility] [address] [id number] [address] [place] [address], [place] [address] Jun, [facility] [address] [id number] [address] [place] [address], [place] [address] Jun, [facility] [address] [id number] [address] [place] [address], [place] [address] Jun, [facility] [address] [id number] [address] [place] [address], [place] [address] Jun, [facility] [address] [id number] [address] [place] [address], [place] [address] Jun, [facility] [address] [id number] [address] [place] [address], [place] [address] Jun, [facility] [address] [id number] [address] [place] [address], [place] [address] Jun, [facility] [address] [id number] [address] [place] [address], [place] [address] Jun, [facility] [address] [id number] [address] [place] [address], [place] [address] May, [facility] [address] [id number] [address] [place] [address], [place] [address] May, [facility] [address] [id number] [address] [place] [address], [place] [address] May, [facility] [address] [id number] [address] [place] [address], [place] [address] May, [facility] [address] [id number] [address] [place] [address], [place] [address] May, [facility] [address] [id number] [address] [place] [address], [place] [address] May, [facility] [address] [id number] [address] [place] [address], [place] [address] May, [facility] [address] [id number] [address] [place] [address], [place] [address] May, [facility] [address] [id number] [address] [place] [address], [place] [address] May, [facility] [address] [id number] [address] [place] [address], [place] [address] May, [facility] [address] [id number] [address] [place] [address], [place] [address] May, [facility] [address] [id number] [address] [place] [address], [place] [address] 18 May, 2014 [facility] [address] [id number] [address] [place] [address], [place] [address] 18 May, 2014 [facility] [address] [id number] [address] [place] [address], [place] [address] 17 May, 2014 [facility] [address] [id number] [address] [place] [address], [place] [address] 16 May, 2014 [facility] [address] [id number] [facility] [place] [address] 16 May, 2014 [facility] [address] [id number] [facility] [place] [address] 15 May, 2014 [facility] [address] [id number] [address] [place] [address], [place] [address] 15 May, 2014 [facility] [address] [id number] [address] [place] [address], [place] [address] May, [facility] [address] [id number] [address] [place] [address], [place] [address] May, [facility] [address] [id number] [address] [place] [address], [place] [address] May, [facility] [address] [id number] [address] [place] [address], [place] [address] May, [facility] [address] [id number] [address] [place] [address], [place] [address] May, [facility] [address] [id number] [address] [place] [address], [place] [address] May, [facility] [address] [id number] [address] [place] [address], [place] [address] May, [facility] [address] [id number] [address] [place] [address], [place] [address] May, [facility] [address] [id number] [address] [place] [address], [place] [address] May, [facility] [address] [id number] [address] [place] [address], [place] [address] May, [facility] [address] [id number] [address] [place] [address], [place] [address] May, [facility] [address] [id number] [address] [place] [address], [place] [address] May, [facility] [address] [id number] [address] [place] [address], [place] [address] 05 May, 2014 [facility] [address] [id number] [address] [place] [address], [place] [address] May, [facility] [address] [id number] [address] [place] [address], [place] [address] May, [facility] [address] [id number] [address] [place] [address], [place] [address] May, [facility] [address] [id number] [address] [place] [address], [place] [address] Apr, [facility] [address] [id number] [address] [place] [address], [place] [address] Apr, [facility] [address] [id number] [address] [place] [address], [place] [address] Apr, [facility] [address] [id number] [address] [place] [address], [place] [address] Apr, [facility] [address] [id number] [address] [place] [address], [place] [address] Apr, [facility] [address] [id number] [address] [place] [address], [place] [address] Apr, [facility] [address] [id number] [address] [place] [address], [place] [address] Apr, [facility] [address] [id number] [address] [place] [address], [place] [address] Apr, [facility] [address] [id number] [address] [place] [address], [place] [address] Apr, [facility] [address] [id number] [address] [place] [address], [place] [address] Apr, [facility] [address] [id number] [address] [place] [address], [place] [address] Mar, [facility] [address] [id number] [address] [place] [address], [place] [address] Mar, [facility] [address] [id number] [address] [place] [address], [place] [address] 31 Mar, 2013 [facility] [address] [id number] [address] [place] [address], [place] [address] Mar, 2013 [facility] [address] [id number] [address] [place] [address], [place] [address] 30 Mar, 2014 [facility] [address] [id number] [address] [place] [address], [place] [address] 30 Mar, 2014 [facility] [address] [id number] [address] [place] [address], [place] [address] Mar, [facility] [address] [id number] [address] [place] [address], [place] [address] Mar, [facility] [address] [id number] [address] [place] [address], [place] [address] Mar, [facility] [address] [id number] [address] [place] [address], [place] [address] Mar, [facility] [address] [id number] [address] [place] [address], [place] [address] Mar, [facility] [address] [id number] [address] [place] [address], [place] [address] Mar, [facility] [address] [id number] [address] [place] [address], [place] [address] Mar, [facility] [address] [id number] [address] [place] [address], [place] [address] Mar, [facility] [address] [id number] [address] [place] [address], [place] [address] Mar, [facility] [address] [id number] [address] [place] [address], [place] [address] Mar, [facility] [address] [id number] [address] [place] [address], [place] [address] Mar, [facility] [address] [id number] [address] [place] [address] Mar, [facility] [address] [id number] [address] [place] [address], [place] [address] Mar, [facility] [address] [id number] [address] [place] [address], [place] [address] Mar, [facility] [address] [id number] [address] [place] [address], [place] [address] 05 Sep, 2013 [facility] [address] [id number] [address] [place] [address], [place] [address] 05 Sep, 2013 [facility] [address] [id number] [address] [place] [address], [place] [address] 04 Feb, 2013 [facility] [address] [id number] [address] [place] [address], [place] [address] 04 Feb, 2013 [facility] [address] [id number] [address] [place] [address], [place] [address] Feb, 2013 [facility] [address] [id number] [address] [place] [address], [place] [address] Feb, 2013 [facility] [address] [id number] [address] [place] [address], [place] [address] Feb, 2013 [facility] [address] [id number] [address] [place] [address], [place] [address] Feb, 2013 [facility] [address] [id number] [address] [place] [address], [place] [address] Feb, 2013 [facility] [address] [id number] [address] [place] [address], [place] [address] Feb, 2013 [facility] [address] [id number] [address] [place] [address], [place] [address] Jan, [facility] [address] [id number] [address] [place] [address], [place] [address] Jan, [facility] [address] [id number] [address] [place] [address], [place] [address] Jan, [facility] [address] [id number] [facility] [place] [address] Jan, [facility] [address] [id number] [address] [place] [address] Jan, [facility] [address] [id number] [address] [place] [address] Jan, [facility] [address] [id number] [address] [place] [address], [place] [address] Jan, [facility] [address] [id number] [address] [place] [address], [place] [address] Jan, [facility] [address] [id number] [address] [place] [address], [place] [address] Jan, [facility] [address] [id number] [address] [place] [address], [place] [address] Jan, [facility] [address] [id number] [address] [place] [address], [place] [address] Jan, [facility] [address] [id number] [address] [place] [address], [place] [address] Jan, [facility] [address] [id number] [address] [place] [address], [place] [address] Dec, [facility] [address] [id number] [address] [place] [address], [place] [address] Dec, [facility] [address] [id number] [address] [place] [address], [place] [address] Dec, [facility] [address] [id number] [address] [place] [address], [place] [address] Dec, [facility] [address] [id number] [address] [place] [address], [place] [address] Dec, [facility] [address] [id number] [address] [place] [address], [place] [address] Dec, [facility] [address] [id number] [address] [place] [address], [place] [address] Dec, [facility] [address] [id number] [address] [place] [address], [place] [address] Dec, 2013 [facility] [address] [id number] [address] [place] [address], [place] [address] Dec, [facility] [address] [id number] [address] [place] [address], [place] [address] Dec, [facility] [address] [id number] [address] [place] [address], [place] [address] Dec, [facility] [address] [id number] [address] [place] [address], [place] [address] Dec, [facility] [address] [id number] [address] [place] [address], [place] [address] Nov, [facility] [address] [id number] [address] [place] [address], [place] [address] Nov, [facility] [address] [id number] [address] [place] [address], [place] [address] Nov, [facility] [address] [id number] [address] [place] [address], [place] [address] Nov, [facility] [address] [id number] [address] [place] [address], [place] [address] Nov, [facility] [address] [id number] [address] [place] [address], [place] [address] Nov, [facility] [address] [id number] [address] [place] [address], [place] [address] Nov, [facility] [address] [id number] [address] [place] [address], [place] [address] Nov, [facility] [address] [id number] [address] [place] [address], [place] [address] Nov, [facility] [address] [id number] [address] [place] [address], [place] [address] Nov, [facility] [address] [id number] [address] [place] [address], [place] [address] Nov, [facility] [address] [id number] [address] [place] [address], [place] [address] Nov, [facility] [address] [id number] [address] [place] [address], [place] [address] Nov, [facility] [address] [id number] [address] [place] [address], [place] [address] Nov, [facility] [address] [id number] [address] [place] [address], [place] [address] October, [facility] [address] [id number] [address] [place] [address], [place] [address] October, [facility] [address] [id number] [address] [place] [address], [place] [address] October, [facility] [address] [id number] [address] [place] [address], [place] [address] October, [facility] [address] [id number] [address] [place] [address], [place] [address] October, [facility] [address] [id number] [address] [place] [address], [place] [address] October, [facility] [address] [id number] [address] [place] [address], [place] [address] October, [facility] [address] [id number] [address] [place] [address], [place] [address] October, [facility] [address] [id number] [address] [place] [address], [place] [address] October, [facility] [address] [id number] [address] [place] [address], [place] [address] October, [facility] [address] [id number] [address] [place] [address], [place] [address] October, [facility] [address] [id number] [address] [place] [address], [place] [address] October, [facility] [address] [id number] [facility] [place] [address] Sep, [facility] [address] [id number] [facility] [place] [address] Sep, [facility] [address] [id number] [facility] [place] [address] Sep, [facility] [address] [id number] [address] [place] [address], [place] [address] Sep, [facility] [address] [id number] [address] [place] [address], [place] [address] Sep, [facility] [address] [id number] [address] [place] [address], [place] [address] Sep, [facility] [address] [id number] [address] [place] [address], [place] [address] Aug, [facility] [address] [id number] [address] [place] [address], [place] [address] Aug, [facility] [address] [id number] [address] [place] [address], [place] [address] Aug, [facility] [address] [id number] [address] [place] [address], [place] [address] Aug, [facility] [address] [id number] [address] [place] [address], [place] [address] Aug, [facility] [address] [id number] [address] [place] [address], [place] [address] Aug, [facility] [address] [id number] [address] [place] [address], [place] [address] Jul, [facility] [address] [id number] [address] [place] [address], [place] [address] Jul, [facility] [address] [id number] [address] [place] [address], [place] [address] Jul, [facility] [address] [id number] [address] [place] [address], [place] [address] Jul, [facility] [address] [id number] [address] [place] [address], [place] [address] Jul, [facility] [address] [id number] [address] [place] [address], [place] [address] Jul, [facility] [address] [id number] [address] [place] [address], [place] [address] Jul, [facility] [address] [id number] [address] [place] [address], [place] [address] Jul, [facility] [address] [id number] [address] [place] [address], [place] [address] Jul, [facility] [address] [id number] [address] [place] [address], [place] [address] Jul, [facility] [address] [id number] [address] [place] [address], [place] [address] Jun, [facility] [address] [id number] [address] [place] [address], [place] [address] Jun, [facility] [address] [id number] [address] [place] [address], [place] [address] Jun, [facility] [address] [id number] [address] [place] [address], [place] [address] Jun, [facility] [address] [id number] [address] [place] [address], [place] [address] Jun, [facility] [address] [id number] [address] [place] [address], [place] [address] Jun, [facility] [address] [id number] [address] [place] [address], [place] [address] Jun, [facility] [address] [id number] [address] [place] [address], [place] [address] Jun, [facility] [address] [id number] [address] [place] [address], [place] [address] May, [facility] [address] [id number] [address] [place] [address], [place] [address] May, [facility] [address] [id number] [address] [place] [address], [place] [address] May, [facility] [address] [id number] [address] [place] [address], [place] [address] May, [facility] [address] [id number] [address] [place] [address], [place] [address] May, [facility] [address] [id number] [address] [place] [address], [place] [address] May, [facility] [address] [id number] [address] [place] [address], [place] [address] May, [facility] [address] [id number] [address] [place] [address], [place] [address] May, [facility] [address] [id number] [address] [place] [address], [place] [address] Apr, [facility] [address] [id number] [address] [place] [address], [place] [address] Apr, [facility] [address] [id number] [address] [place] [address], [place] [address] Apr, [facility] [address] [id number] [address] [place] [address], [place] [address] Apr, [facility] [address] [id number] [address] [place] [address], [place] [address] Apr, [facility] [address] [id number] [address] [place] [address], [place] [address] Apr, [facility] [address] [id number] [address] [place] [address], [place] [address] Mar, [facility] [address] [id number] [address] [place] [address], [place] [address] Mar, [facility] [address] [id number] [address] [place] [address], [place] [address] Mar, [facility] [address] [id number] [address] [place] [address], [place] [address] Mar, [facility] [address] [id number] [address] [place] [address], [place] [address] Mar, [facility] [address] [id number] [address] [place] [address], [place] [address] Mar, [facility] [address] [id number] [address] [place] [address], [place] [address] Mar, [facility] [address] [id number] [address] [place] [address], [place] [address] 30 Feb, 2013 [facility] [address] [id number] [address] [place] [address], [place] [address] 30 Feb, 2013 [facility] [address] [id number] [address] [place] [address], [place] [address] Feb, [facility] [address] [id number] [address] [place] [address], [place] [address] Feb, [facility] [address] [id number] [address] [place] [address], [place] [address] Feb, [facility] [address] [id number] [address] [place] [address], [place] [address] Feb, [facility] [address] [id number] [address] [place] [address], [place] [address] Jan, [facility] [address] [id number] [address] [place] [address], [place] [address] Jan, [facility] [address] [id number] [address] [place] [address], [place] [address] Jan, [facility] [address] [id number] [address] [place] [address], [place] [address] Jan, [facility] [address] [id number] [address] [place] [address], [place] [address] Jan, [facility] [address] [id number] [address] [place] [address], [place] [address] Jan, [facility] [address] [id number] [address] [place] [address], [place] [address] Jan, [facility] [address] [id number] [address] [place] [address], [place] [address] Jan, [facility] [address] [id number] [address] [place] [address], [place] [address] Jan, [facility] [address] [id number] [address] [place] [address], [place] [address] Dec, [facility] [address] [id number] [address] [place] [address], [place] [address] Dec, [facility] [address] [id number] [address] [place] [address], [place] [address] Dec, [facility] [address] [id number] [address] [place] [address], [place] [address] Dec, [facility] [address] [id number] [address] [place] [address], [place] [address] Dec, [facility] [address] [id number] [address] [place] [address], [place] [address] Dec, [facility] [address] [id number] [address] [place] [address], [place] [address] Dec, [facility] [address] [id number] [address] [place] [address], [place] [address] Dec, [facility] [address] [id number] [address] [place] [address], [place] [address] Dec, [facility] [address] [id number] [address] [place] [address], [place] [address] Dec, [facility] [address] [id number] [address] [place] [address], [place] [address] Dec, [facility] [address] [id number] [address] [place] [address], [place] [address] Dec, [facility] [address] [id number] [address] [place] [address], [place] [address] Dec, [facility] [address] [id number] [address] [place] [address], [place] [address] Nov, [facility] [address] [id number] [address] [place] [address], [place] [address] Nov, [facility] [address] [id number] [address] [place] [address], [place] [address] Nov, [facility] [address] [id number] [address] [place] [address], [place] [address] Nov, [facility] [address] [id number] [address] [place] [address], [place] [address] October, [facility] [address] [id number] [address] [place] [address], [place] [address] October, [facility] [address] [id number] [address] [place] [address], [place] [address] October, [facility] [address] [id number] [address] [place] [address], [place] [address] October, [facility] [address] [id number] [address] [place] [address], [place] [address] October, [facility] [address] [id number] [address] [place] [address], [place] [address] October, [facility] [address] [id number] [address] [place] [address], [place] [address] Sep, [facility] [address] [id number] [address] [place] [address], [place] [address] Sep, [facility] [address] [id number] [address] [place] [address], [place] [address] Sep, [facility] [address] [id number] [address] [place] [address], [place] [address] Sep, [facility] [address] [id number] [address] [place] [address], [place] [address] 19 Sep, 2012 [facility] [address] [id number] [address] [place] [address], [place] [address] 16 Sep, 2012 [facility] [address] [id number] [address] [place] [address], [place] [address] Sep, [facility] [address] [id number] [address] [place] [address], [place] [address] Sep, [facility] [address] [id number] [address] [place] [address], [place] [address] Sep, [facility] [address] [id number] [address] [place] [address], [place] [address] Sep, [facility] [address] [id number] [address] [place] [address], [place] [address] Sep, [facility] [address] [id number] [address] [place] [address], [place] [address] Aug, [facility] [address] [id number] [address] [place] [address], [place] [address] Aug, [facility] [address] [id number] [address] [place] [address], [place] [address] 25 Aug, 2012 [facility] [address] [id number] [address] [place] [address], [place] [address] Aug, [facility] [address] [id number] [address] [place] [address], [place] [address] 19 Aug, 2012 [facility] [address] [id number] [address] [place] [address], [place] [address] 18 Aug, 2012 [facility] [address] [id number] [address] [place] [address], [place] [address] 17 Aug, 2012 [facility] [address] [id number] [address] [place] [address], [place] [address] 15 Aug, 2012 [facility] [address] [id number] [address] [place] [address], [place] [address] 15 Aug, 2012 [facility] [address] [id number] [address] [place] [address], [place] [address] Aug, [facility] [address] [id number] [address] [place] [address], [place] [address] Aug, [facility] [address] [id number] [address] [place] [address], [place] [address] Aug, [facility] [address] [id number] [address] [place] [address], [place] [address] Jul, [facility] [address] [id number] [address] [place] [address], [place] [address] Jul, [facility] [address] [id number] [address] [place] [address], [place] [address] Jul, [facility] [address] [id number] [address] [place] [address], [place] [address] Jul, [facility] [address] [id number] [address] [place] [address], [place] [address] Jul, [facility] [address] [id number] [address] [place] [address], [place] [address] Jul, [facility] [address] [id number] [address] [place] [address], [place] [address] Jul, [facility] [address] [id number] [address] [place] [address], [place] [address] Jul, [facility] [address] [id number] [address] [place] [address], [place] [address] Jul, [facility] [address] [id number] [address] [place] [address], [place] [address] Jul, [facility] [address] [id number] [address] [place] [address], [place] [address] May, [facility] [address] [id number] [place] [id number] May, [facility] [address] [id number] [address] [address] May, [facility] [address] [id number] [address] [place] [address] May, [facility] [address] [id number] [address] [place] [address] May, [facility] [address] [id number] [address] [place] [address] Apr, [facility] [address] [id number] [place] [id number] Apr, [facility] [address] [id number] [address] [place] [address] Apr, [facility] [address] [id number] [address] [place] [address] Mar, [facility] [address] [id number] [place] [id number] Mar, [facility] [address] [id number] [address] [place] [address] Mar, [facility] [address] [id number] [place] [id number] Feb, [facility] [address] [id number] [address] [place] [address] Feb, [facility] [address] [id number] [address] [place] [address] Feb, [facility] [address] [id number] [place] [id number] Feb, [facility] [address] [id number] [place] [id number] Feb, [facility] [address] [id number] [place] [id number] Jan, [facility] [address] [id number] [address] [place] [address] Jan, [facility] [place] [address] [id number] [place] [id number] Jan, [facility] [address] [id number] [place] [id number] Jan, [facility] [address] [id number] [place] [id number] Jan, [facility] [address] [facility] [id number] [address] [address] Jan, [facility] [address] [facility] [id number] [address] [place] [address] Jan, [facility] [address] [facility] [id number] [address] [place] [address] Aug, [facility] [address] [id number] [place] [id number] Aug, [facility] [address] [facility] [id number] [address] [place] [address] Jul, [facility] [address] [facility] [id number] [address] [place] [address] Jul, [facility] [address] [facility] [id number] [address] [place] [id number] Jul, [facility] [address] [id number] [place] [id number] Jul, 2011 [facility] [address] [facility] [id number] [address] [place] [id number] Jul, [facility] [address] [id number] [place] [id number] Jul, [facility] [address] [facility] [id number] [address] [place] [id number] Jul, [facility] [address] [id number] [place] [id number] Jul, [facility] [address] [id number] [place] [id number] Jul, [facility] [address] [id number] [place] [id number] Jul, [facility] [address] [facility] [id number] [address] [place] [id number] May, [facility] [address] [id number] [address] [place] [id number] May, [facility] [address] [id number] [address] [place] [id number] May, [facility] [address] [id number] [address] [place] [id number] Apr, [facility] [address] [id number] [address] [place] [id number] Jan, [facility] [address] [id number] [address] [place] [id number] Jan, [facility] [address] [id number] [address] [place] [id number] Dec, [facility] [address] [id number] [address] [place] [id number] Dec, [facility] [address] [id number] [address] [place] [id number] May, [facility] [address] [id number] [address] [place] [id number] Mar, [facility] [address] [id number] [address] [place] [id number] Mar, [facility] [address] [id number] [address] [place] [id number] 14 Jan, 2009 IMMUNIZATIONS No Known Immunizations SOCIAL HISTORY Never Assessed REASON FOR VISIT PLAN OF CARE VITAL SIGNS MEDICATIONS Unknown Medications RESULTS No Results PROCEDURES Procedure Date Ordered Result Body Site PROTHROMBIN TIME September 21, 2012 INSTRUCTIONS MEDICATIONS ADMINISTERED No Known Medications [...]
--- OUTSIDE RECORDS SUMMARY | 2020-01-28 13:09 | XMS REPORT ---
Author Author Heydi Candelario Doctor Organization [facility] Address Unknown Phone Unavailable Care Team Providers Care Auto Emissions Technician Name Role Phone Migration, Doctor Unavailable Unavailable PROBLEMS Type Condition ICD9-CM Code [id number] Code Onset Dates Condition S tatus SNOMED Code Problem Chronic pain syndrome G89.4 Active 164319121 Problem Sore throat J02.9 Active 61633450 3 Problem Choriocarcinoma C58 Active 1881 08499 Problem [facility] current use of anticoagulant Z79.01 Active 660649095 Problem History of venous thromboembolism V12.51 Active 116064302 Problem Cellulitis of unspecified part of limb L03.119 Active 667353582 Problem Gastroesophageal reflux disease without esophagitis K21.9 Active 773967353 Problem History of pulmonary embolism Z86.711 Active 236595589 Problem Pseudotumor cerebri G93.2 Active 12830530 Problem History of DVT (deep vein thrombosis) Z86.718 Active 397664976 ALLERGIES No Information ENCOUNTERS Encounter Location Date Diagnosis [place] [address] [place] [id number] [address] [place] [id number] 14 Nov, 2019 Encounter for screening labo ratory testing for COVID-19 virus Z11.59 [place] [address] [place] [id number] [address] [place] [address] 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, 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 [place] [id number] [facility] [id number] [address] [place] [address] Apr, [facility] current use of ant icoagulant Z79.01 [place] [address] [facility] [id number] [address] [place] [address] Apr, Cellulitis of unspecified pa rt of limb L03.119 ; Allergic contact dermatitis due to adhesives L23.1 and Chronic pain syndrome G89.4 [place] [address] [address] Apr, [facility] [place] [address] [address] Apr, [facility] current use of ant icoagulant Z79.01 ; Cellulitis of unspecified part of limb L03.119 ; Chronic pain syndrome G89.4 and Anxiety F41.9 [place] [address] [address] Apr, [facility] [place] [address] [address] Apr, [place] [address] [address] Mar, [place] [address] [address] Mar, [place] [address] [address] Mar, Sore throat J02.9 ; Gastroes ophageal reflux disease without esophagitis K21.9 ; Pseudotumor cerebri G93.2 ; Chronic pain syndrome G89.4 ; Choriocarcinoma C58 ; History of pulmonary embolism Z86.711 ; History of DVT (deep vein thrombosis) Z86.718 ; Anxiety F41.9 and Tachycardia R00.0 [place] [address] [place] [id number] [address] [place] [address] Feb, Anxiety 300.00 and Chronic p ain 338.29 [facility] [place] [address] [place] [id number] [address] [place] [address] Feb, [facility] [place] [address] [address] Feb, [facility] [place] [address] [place] [id number] [address] [place] [address] Jan, 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 inspector current use of ant icoagulant therapy V58.61 and Dysuria 788.1 [place] [address] [place] [id number] [address] [place] [address] Jan, Dysuria 788.1 [place] [address] [address] Jan, Anxiety 300.00 and Chronic p ain 338.29 [place] [address] [address] Jan, [place] [address] [address] Jan, [place] [address] [address] Jan, [place] [address] [address] Dec, Weakness 780.79 [place] [address] [address] Dec, 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 inspector current use of ant icoagulant therapy V58.[address] [address] Dec, Palpitations 785.1 ; Tremor 781.0 ; Weakness 780.79 ; [facility] current use of anticoagulant therapy V58.61 and Yeast vaginitis 112.1 [place] [address] [place] [id number] [address] [place] [address] Dec, [place] [address] [address] Dec, Cervicalgia 723.1 ; Tachycar yoseph 785.0 ; Pseudotumor cerebri 348.2 and History of venous thromboembolism V12.51 [place] [address] [address] Nov, [place] [address] [place] [id number] [address] [place] [address] Nov, [place] [address] [place] [id number] [place] [address] 24 Nov, 2014 Tachycardia 785.0 ; Pseudotu mor cerebri 348.2 ; Anxiety 300.00 and History of venous thromboembolism V12.51 [facility] [place] [address] [id number] [address] [place] [address] 19 Nov, 2014 [facility] [place] [address] [id number] [address] [place] [address] 18 Nov, 2014 [facility] [place] [address] [id number] [address] [place] [address] 16 Nov, 2014 [facility] [place] [address] [id number] [address] [place] [address] Nov, [facility] [place] [address] [facility] [id number] [address] [place] [address] Nov, [facility] [place] [address] [facility] [id number] [address] [place] [address] Nov, [facility] [place] [address] [id number] [address] [place] [address] Nov, [facility] [place] [address] [facility] [id number] [address] [place] [address] October, [facility] [place] [address] [facility] [id number] [address] [place] [address] October, [facility] [place] [address] [facility] [id number] [address] [place] [address] October, Pain in thoracic spine 724.1 and Tachycardia 785.0 [facility] [place] [address] [id number] [address] [place] [address] October, [facility] [place] [address] [facility] [id number] [address] [place] [address] October, [facility] [place] [address] [facility] [id number] [address] [place] [address] 14 Sep, 2014 [facility] [place] [address] [facility] [id number] [address] [place] [address] Sep, [facility] [address] [id number] [address] [place] [address], [place] [address] Aug, [facility] [address] [id number] [address] [place] [address], [place] [address] Aug, [facility] [address] [id number] [address] [place] [address], [place] [address] Aug, [facility] [address] [id number] [address] [place] [address], [place] [address] Aug, [facility] [address] [id number] [address] [place] [address], [place] [address] Aug, [facility] [address] [id number] [address] [place] [address], [place] [address] Aug, [facility] [address] [id number] [address] [place] [address], [place] [address] Aug, [facility] [address] [id number] [address] [place] [address], [place] [address] Aug, [facility] [address] [id number] [address] [place] [address], [place] [address] Aug, [facility] [address] [id number] [address] [place] [address], [place] [address] Aug, [facility] [address] [id number] [address] [place] [address], [place] [address] Aug, [facility] [address] [id number] [address] [place] [address], [place] [address] Aug, [facility] [address] [id number] [address] [place] [address], [place] [address] Jul, [facility] [address] [id number] [address] [place] [address], [place] [address] Jul, [facility] [address] [id number] [address] [place] [address], [place] [address] Jul, [facility] [address] [id number] [address] [place] [address], [place] [address] 23 Jul, 2014 [facility] [address] [id number] [address] [place] [address], [place] [address] 23 Jul, 2014 [facility] [address] [id number] [address] [place] [address], [place] [address] 23 Jul, 2014 [facility] [address] [id number] [address] [place] [address], [place] [address] 23 Jul, 2014 [facility] [address] [id number] [address] [place] [address], [place] [address] 23 Jul, 2014 [facility] [address] [id number] [address] [place] [address], [place] [address] 20 Jul, 2014 [facility] [address] [id number] [address] [place] [address], [place] [address] 20 Jul, 2014 [facility] [address] [id number] [address] [place] [phone] 19 Jul, 2014 [facility] [address] [id number] [address] [place] [address], [place] [address] 19 Jul, 2014 [facility] [address] [id number] [address] [place] [address] 17 Jul, 2014 [facility] [address] [id number] [address] [place] [address] 17 Jul, 2014 [facility] [address] [id number] [address] [place] [address] 16 Jul, 2014 [facility] [address] [id number] [address] [place] [address], [place] [address] 16 Jul, 2014 [facility] [address] [id number] [address] [place] [address] 16 Jul, 2014 [facility] [address] [id number] [address] [place] [address] 16 Jul, 2014 [facility] [address] [id number] [address] [place] [address], [place] [address] 13 Jul, 2014 [facility] [address] [id number] [address] [place] [address], [place] [address] Jul, 2014 [facility] [address] [id number] [address] [place] [address], [place] [address] Jul, 2014 [facility] [address] [id number] [address] [place] [address], [place] [address] Jul, 2014 [facility] [address] [id number] [address] [place] [address], [place] [address] Jul, 2014 [facility] [address] [id number] [address] [place] [address], [place] [address] Jul, [facility] [address] [id number] [address] [place] [address], [place] [address] Jul, 2014 [facility] [address] [id number] [address] [place] [address], [place] [address] Jul, [facility] [address] [id number] [address] [place] [address], [place] [address] Jul, [facility] [address] [id number] [address] [place] [address], [place] [address] Jul, [facility] [address] [id number] [address] [place] [address] Jul, [facility] [address] [id number] [address] [place] [address] Jul, [facility] [address] [id number] [address] [place] [address], [place] [address] Jun, [facility] [address] [id number] [address] [place] [address] Jun, [facility] [address] [id number] [address] [place] [address] Jun, [facility] [address] [id number] [address] [place] [address] Jun, [facility] [address] [id number] [address] [place] [address], [place] [address] Jun, [facility] [address] [id number] [address] [place] [address], [place] [address] Jun, [facility] [address] [id number] [address] [place] [address], [place] [address] Jun, [facility] [address] [id number] [address] [place] [address], [place] [address] Jun, [facility] [address] [id number] [address] [place] [address], [place] [address] Jun, [facility] [address] [id number] [address] [place] [address], [place] [address] Jun, [facility] [address] [id number] [address] [place] [address], [place] [address] Jun, [facility] [address] [id number] [address] [place] [address], [place] [address] Jun, [facility] [address] [id number] [address] [place] [address], [place] [address] Jun, [facility] [address] [id number] [address] [place] [address], [place] [address] Jun, [facility] [address] [id number] [address] [place] [address], [place] [address] Jun, [facility] [address] [id number] [address] [place] [address], [place] [address] Jun, [facility] [address] [id number] [address] [place] [address], [place] [address] Jun, [facility] [address] [id number] [address] [place] [address], [place] [address] Jun, [facility] [address] [id number] [address] [place] [address], [place] [address] Jun, [facility] [address] [id number] [address] [place] [address], [place] [address] Jun, [facility] [address] [id number] [address] [place] [address], [place] [address] May, [facility] [address] [id number] [address] [place] [address], [place] [address] May, [facility] [address] [id number] [address] [place] [address], [place] [address] May, [facility] [address] [id number] [address] [place] [address], [place] [address] May, [facility] [address] [id number] [address] [place] [address], [place] [address] May, [facility] [address] [id number] [address] [place] [address], [place] [address] May, [facility] [address] [id number] [address] [place] [address], [place] [address] May, [facility] [address] [id number] [address] [place] [address], [place] [address] May, [facility] [address] [id number] [address] [place] [address], [place] [address] May, [facility] [address] [id number] [address] [place] [address], [place] [address] May, [facility] [address] [id number] [address] [place] [address], [place] [address] May, [facility] [address] [id number] [address] [place] [address], [place] [address] 18 May, 2014 [facility] [address] [id number] [address] [place] [address], [place] [address] 18 May, 2014 [facility] [address] [id number] [address] [place] [address], [place] [address] 17 May, 2014 [facility] [address] [id number] [address] [place] [address], [place] [address] 16 May, 2014 [facility] [address] [id number] [facility] [address] 16 May, 2014 [facility] [address] [id number] [facility] [address] 15 May, 2014 [facility] [address] [id number] [address] [place] [address], [place] [address] 15 May, 2014 [facility] [address] [id number] [address] [place] [address], [place] [address] May, [facility] [address] [id number] [address] [place] [address], [place] [address] May, [facility] [address] [id number] [address] [place] [address], [place] [address] May, [facility] [address] [id number] [address] [place] [address], [place] [address] May, [facility] [address] [id number] [address] [place] [address], [place] [address] May, [facility] [address] [id number] [address] [place] [address], [place] [address] May, [facility] [address] [id number] [address] [place] [address], [place] [address] May, [facility] [address] [id number] [address] [place] [address], [place] [address] May, [facility] [address] [id number] [address] [place] [address], [place] [address] May, [facility] [address] [id number] [address] [place] [address], [place] [address] May, [facility] [address] [id number] [address] [place] [address], [place] [address] May, [facility] [address] [id number] [address] [place] [address], [place] [address] May, [facility] [address] [id number] [address] [place] [address], [place] [address] 05 May, 2014 [facility] [address] [id number] [address] [place] [address], [place] [address] May, [facility] [address] [id number] [address] [place] [address], [place] [address] May, [facility] [address] [id number] [address] [place] [address], [place] [address] May, [facility] [address] [id number] [address] [place] [address], [place] [address] Apr, [facility] [address] [id number] [address] [place] [address], [place] [address] Apr, [facility] [address] [id number] [address] [place] [address], [place] [address] Apr, [facility] [address] [id number] [address] [place] [address], [place] [address] Apr, [facility] [address] [id number] [address] [place] [address], [place] [address] Apr, [facility] [address] [id number] [address] [place] [address], [place] [address] Apr, [facility] [address] [id number] [address] [place] [address], [place] [address] Apr, [facility] [address] [id number] [address] [place] [address], [place] [address] Apr, [facility] [address] [id number] [address] [place] [address], [place] [address] Apr, [facility] [address] [id number] [address] [place] [address], [place] [address] Apr, [facility] [address] [id number] [address] [place] [address], [place] [address] Mar, [facility] [address] [id number] [address] [place] [address], [place] [address] Mar, [facility] [address] [id number] [address] [place] [address], [place] [address] 31 Mar, 2013 [facility] [address] [id number] [address] [place] [address], [place] [address] Mar, 2013 [facility] [address] [id number] [address] [place] [address], [place] [address] 30 Mar, 2014 [facility] [address] [id number] [address] [place] [address], [place] [address] 30 Mar, 2014 [facility] [address] [id number] [address] [place] [address], [place] [address] Mar, [facility] [address] [id number] [address] [place] [address], [place] [address] Mar, [facility] [address] [id number] [address] [place] [address], [place] [address] Mar, [facility] [address] [id number] [address] [place] [address], [place] [address] Mar, [facility] [address] [id number] [address] [place] [address], [place] [address] Mar, [facility] [address] [id number] [address] [place] [address], [place] [address] Mar, [facility] [address] [id number] [address] [place] [address], [place] [address] Mar, [facility] [address] [id number] [address] [place] [address], [place] [address] Mar, [facility] [address] [id number] [address] [place] [address], [place] [address] Mar, [facility] [address] [id number] [address] [place] [address], [place] [address] Mar, [facility] [address] [id number] [address] [place] [address], [place] [address] Mar, [facility] [address] [id number] [address] [place] [address] Mar, [facility] [address] [id number] [address] [place] [address], [place] [address] Mar, [facility] [address] [id number] [address] [place] [address], [place] [address] Mar, [facility] [address] [id number] [address] [place] [address], [place] [address] 05 Sep, 2013 [facility] [address] [id number] [address] [place] [address], [place] [address] 05 Sep, 2013 [facility] [address] [id number] [address] [place] [address], [place] [address] 04 Feb, 2013 [facility] [address] [id number] [address] [place] [address], [place] [address] 04 Feb, 2013 [facility] [address] [id number] [address] [place] [address], [place] [address] Feb, 2013 [facility] [address] [id number] [address] [place] [address], [place] [address] Feb, 2013 [facility] [address] [id number] [address] [place] [address], [place] [address] Feb, 2013 [facility] [address] [id number] [address] [place] [address], [place] [address] Feb, 2013 [facility] [address] [id number] [address] [place] [address], [place] [address] Feb, 2013 [facility] [address] [id number] [address] [place] [address], [place] [address] Feb, 2013 [facility] [address] [id number] [address] [place] [address], [place] [address] Jan, [facility] [address] [id number] [address] [place] [address], [place] [address] Jan, [facility] [address] [id number] [address] [place] [address], [place] [address] Jan, [facility] [address] [id number] [facility] [place] [address] Jan, [facility] [address] [id number] [facility] [address] Jan, [facility] [address] [id number] [facility] [address] Jan, [facility] [address] [id number] [address] [place] [address], [place] [address] Jan, [facility] [address] [id number] [address] [place] [address], [place] [address] Jan, [facility] [address] [id number] [address] [place] [address], [place] [address] Jan, [facility] [facility] [address] [id number] [address] [place] [address], [place] [address] Jan, [facility] [address] [id number] [address] [place] [address], [place] [address] Jan, [facility] [address] [id number] [address] [place] [address], [place] [address] Jan, [facility] [address] [id number] [address] [place] [address], [place] [address] Dec, [facility] [address] [id number] [address] [place] [address], [place] [address] Dec, [facility] [address] [id number] [address] [place] [address], [place] [address] Dec, [facility] [address] [id number] [address] [place] [address], [place] [address] Dec, [facility] [address] [id number] [address] [place] [address], [place] [address] Dec, [facility] [address] [id number] [address] [place] [address], [place] [address] Dec, [facility] [address] [id number] [address] [place] [address], [place] [address] Dec, [facility] [address] [id number] [address] [place] [address], [place] [address] Dec, 2013 [facility] [address] [id number] [address] [place] [address], [place] [address] Dec, [facility] [address] [id number] [address] [place] [address], [place] [address] Dec, [facility] [address] [id number] [address] [place] [address], [place] [address] Dec, [facility] [address] [id number] [address] [place] [address], [place] [address] Dec, [facility] [address] [id number] [address] [place] [address], [place] [address] Nov, [facility] [address] [id number] [address] [place] [address], [place] [address] Nov, [facility] [address] [id number] [address] [place] [address], [place] [address] Nov, [facility] [address] [id number] [address] [place] [address], [place] [address] Nov, [facility] [address] [id number] [address] [place] [address], [place] [address] Nov, [facility] [address] [id number] [address] [place] [address], [place] [address] Nov, [facility] [address] [id number] [address] [place] [address], [place] [address] Nov, [facility] [address] [id number] [address] [place] [address], [place] [address] Nov, [facility] [address] [id number] [address] [place] [address], [place] [address] Nov, [facility] [address] [id number] [address] [place] [address], [place] [address] Nov, [facility] [address] [id number] [address] [place] [address], [place] [address] Nov, [facility] [address] [id number] [address] [place] [address], [place] [address] Nov, [facility] [address] [id number] [address] [place] [address], [place] [address] Nov, [facility] [address] [id number] [address] [place] [address], [place] [address] Nov, [facility] [address] [id number] [address] [place] [address], [place] [address] October, [facility] [address] [id number] [address] [place] [address], [place] [address] October, [facility] [address] [id number] [address] [place] [address], [place] [address] October, [facility] [address] [id number] [address] [place] [address], [place] [address] October, [facility] [address] [id number] [address] [place] [address], [place] [address] October, [facility] [address] [id number] [address] [place] [address], [place] [address] October, [facility] [address] [id number] [address] [place] [address], [place] [address] October, [facility] [address] [id number] [address] [place] [address], [place] [address] October, [facility] [address] [id number] [address] [place] [address], [place] [address] October, [facility] [address] [id number] [address] [place] [address], [place] [address] October, [facility] [address] [id number] [address] [place] [address], [place] [address] October, [facility] [address] [id number] [address] [place] [address], [place] [address] October, [facility] [address] [id number] [facility] [address] Sep, [facility] [address] [id number] [facility] [address] Sep, [facility] [address] [id number] [facility] [address] Sep, [facility] [address] [id number] [address] [place] [address], [place] [address] Sep, [facility] [address] [id number] [address] [place] [address], [place] [address] Sep, [facility] [address] [id number] [address] [place] [address], [place] [address] Sep, [facility] [address] [id number] [address] [place] [address], [place] [address] Aug, [facility] [address] [id number] [address] [place] [address], [place] [address] Aug, [facility] [address] [id number] [address] [place] [address], [place] [address] Aug, [facility] [address] [id number] [address] [place] [address], [place] [address] Aug, [facility] [address] [id number] [address] [place] [address], [place] [address] Aug, [facility] [address] [id number] [address] [place] [address], [place] [address] Aug, [facility] [address] [id number] [address] [place] [address], [place] [address] Jul, [facility] [address] [id number] [address] [place] [address], [place] [address] Jul, [facility] [address] [id number] [address] [place] [address], [place] [address] Jul, [facility] [address] [id number] [address] [place] [address], [place] [address] Jul, [facility] [address] [id number] [address] [place] [address], [place] [address] Jul, [facility] [address] [id number] [address] [place] [address], [place] [address] Jul, [facility] [address] [id number] [address] [place] [address], [place] [address] Jul, [facility] [address] [id number] [address] [place] [address], [place] [address] Jul, [facility] [address] [id number] [address] [place] [address], [place] [address] Jul, [facility] [address] [id number] [address] [place] [address], [place] [address] Jul, [facility] [address] [id number] [address] [place] [address], [place] [address] Jun, [facility] [address] [id number] [address] [place] [address], [place] [address] Jun, [facility] [address] [id number] [address] [place] [address], [place] [address] Jun, [facility] [address] [id number] [address] [place] [address], [place] [address] Jun, [facility] [address] [id number] [address] [place] [address], [place] [address] Jun, [facility] [address] [id number] [address] [place] [address], [place] [address] Jun, [facility] [address] [id number] [address] [place] [address], [place] [address] Jun, [facility] [address] [id number] [address] [place] [address], [place] [address] Jun, [facility] [address] [id number] [address] [place] [address], [place] [address] May, [facility] [address] [id number] [address] [place] [address], [place] [address] May, [facility] [address] [id number] [address] [place] [address], [place] [address] May, [facility] [address] [id number] [address] [place] [address], [place] [address] May, [facility] [address] [id number] [address] [place] [address], [place] [address] May, [facility] [address] [id number] [address] [place] [address], [place] [address] May, [facility] [address] [id number] [address] [place] [address], [place] [address] May, [facility] [address] [id number] [address] [place] [address], [place] [address] May, [facility] [address] [id number] [address] [place] [address], [place] [address] Apr, [facility] [address] [id number] [address] [place] [address], [place] [address] Apr, [facility] [address] [id number] [address] [place] [address], [place] [address] Apr, [facility] [address] [id number] [address] [place] [address], [place] [address] Apr, [facility] [address] [id number] [address] [place] [address], [place] [address] Apr, [facility] [address] [id number] [address] [place] [address], [place] [address] Apr, [facility] [address] [id number] [address] [place] [address], [place] [address] Mar, [facility] [address] [id number] [address] [place] [address], [place] [address] Mar, [facility] [address] [id number] [address] [place] [address], [place] [address] Mar, [facility] [address] [id number] [address] [place] [address], [place] [address] Mar, [facility] [address] [id number] [address] [place] [address], [place] [address] Mar, [facility] [address] [id number] [address] [place] [address], [place] [address] Mar, [facility] [address] [id number] [address] [place] [address], [place] [address] Mar, [facility] [address] [id number] [address] [place] [address], [place] [address] 30 Feb, 2013 [facility] [address] [id number] [address] [place] [address], [place] [address] 30 Feb, 2013 [facility] [address] [id number] [address] [place] [address], [place] [address] Feb, [facility] [address] [id number] [address] [place] [address], [place] [address] Feb, [facility] [address] [id number] [address] [place] [address], [place] [address] Feb, [facility] [address] [id number] [address] [place] [address], [place] [address] Feb, [facility] [address] [id number] [address] [place] [address], [place] [address] Jan, [facility] [address] [id number] [address] [place] [address], [place] [address] Jan, [facility] [address] [id number] [address] [place] [address], [place] [address] Jan, [facility] [address] [id number] [address] [place] [address], [place] [address] Jan, [facility] [address] [id number] [address] [place] [address], [place] [address] Jan, [facility] [address] [id number] [address] [place] [address], [place] [address] Jan, [facility] [address] [id number] [address] [place] [address], [place] [address] Jan, [facility] [address] [id number] [address] [place] [address], [place] [address] Jan, [facility] [address] [id number] [address] [place] [address], [place] [address] Jan, [facility] [address] [id number] [address] [place] [address], [place] [address] Dec, [facility] [address] [id number] [address] [place] [address], [place] [address] Dec, [facility] [address] [id number] [address] [place] [address], [place] [address] Dec, [facility] [address] [id number] [address] [place] [address], [place] [address] Dec, [facility] [address] [id number] [address] [place] [address], [place] [address] Dec, [facility] [address] [id number] [address] [place] [address], [place] [address] Dec, [facility] [address] [id number] [address] [place] [address], [place] [address] Dec, [facility] [address] [id number] [address] [place] [address], [place] [address] Dec, [facility] [address] [id number] [address] [place] [address], [place] [address] Dec, [facility] [address] [id number] [address] [place] [address], [place] [address] Dec, [facility] [address] [id number] [address] [place] [address], [place] [address] Dec, [facility] [address] [id number] [address] [place] [address], [place] [address] Dec, [facility] [address] [id number] [address] [place] [address], [place] [address] Dec, [facility] [address] [id number] [address] [place] [address], [place] [address] Nov, [facility] [address] [id number] [address] [place] [address], [place] [address] Nov, [facility] [address] [id number] [address] [place] [address], [place] [address] Nov, [facility] [address] [id number] [address] [place] [address], [place] [address] Nov, [facility] [address] [id number] [address] [place] [address], [place] [address] October, [facility] [address] [id number] [address] [place] [address], [place] [address] October, [facility] [address] [id number] [address] [place] [address], [place] [address] October, [facility] [address] [id number] [address] [place] [address], [place] [address] October, [facility] [address] [id number] [address] [place] [address], [place] [address] October, [facility] [address] [id number] [address] [place] [address], [place] [address] October, [facility] [address] [id number] [address] [place] [address], [place] [address] Sep, [facility] [address] [id number] [address] [place] [address], [place] [address] Sep, [facility] [address] [id number] [address] [place] [address], [place] [address] Sep, [facility] [address] [id number] [address] [place] [address], [place] [address] Sep, [facility] [address] [id number] [address] [place] [address], [place] [address] 19 Sep, 2012 [facility] [address] [id number] [address] [place] [address], [place] [address] 16 Sep, 2012 [facility] [address] [id number] [address] [place] [address], [place] [address] Sep, [facility] [address] [id number] [address] [place] [address], [place] [address] Sep, [facility] [address] [id number] [address] [place] [address], [place] [address] Sep, [facility] [address] [id number] [address] [place] [address], [place] [address] Sep, [facility] [address] [id number] [address] [place] [address], [place] [address] Sep, [facility] [address] [id number] [address] [place] [address], [place] [address] Aug, [facility] [address] [id number] [address] [place] [address], [place] [address] Aug, [facility] [address] [id number] [address] [place] [address], [place] [address] 25 Aug, 2012 [facility] [address] [id number] [address] [place] [address], [place] [address] Aug, [facility] [address] [id number] [address] [place] [address], [place] [address] 19 Aug, 2012 [facility] [address] [id number] [address] [place] [address], [place] [address] 18 Aug, 2012 [facility] [address] [id number] [address] [place] [address], [place] [address] 17 Aug, 2012 [facility] [address] [id number] [address] [place] [address], [place] [address] 15 Aug, 2012 [facility] [address] [id number] [address] [place] [address], [place] [address] 15 Aug, 2012 [facility] [address] [id number] [address] [place] [address], [place] [address] Aug, [facility] [address] [id number] [address] [place] [address], [place] [address] Aug, [facility] [address] [id number] [address] [place] [address], [place] [address] Aug, [facility] [address] [id number] [address] [place] [address], [place] [address] Jul, [facility] [address] [id number] [address] [place] [address], [place] [address] Jul, [facility] [address] [id number] [address] [place] [address], [place] [address] Jul, [facility] [address] [id number] [address] [place] [address], [place] [address] Jul, [facility] [address] [id number] [address] [place] [address], [place] [address] Jul, [facility] [address] [id number] [address] [place] [address], [place] [address] Jul, [facility] [address] [id number] [address] [place] [address], [place] [address] Jul, [facility] [address] [id number] [address] [place] [address], [place] [address] Jul, [facility] [address] [id number] [address] [place] [address], [place] [address] Jul, [facility] [address] [id number] [address] [place] [address], [place] [address] Jul, [facility] [address] [id number] [address] [place] [address], [place] [address] May, [facility] [place] [address] [id number] [place] [id number] May, [facility] [address] [id number] [address] [address] May, [facility] [address] [id number] [address] [place] [address] May, [facility] [address] [id number] [address] [place] [address] May, [facility] [address] [id number] [address] [place] [address] Apr, [facility] [place] [address] [id number] [place] [id number] Apr, [facility] [address] [id number] [address] [place] [address] Apr, [facility] [address] [id number] [address] [place] [address] Mar, [facility] [place] [address] [id number] [place] [id number] Mar, [facility] [address] [id number] [address] [place] [address] Mar, [facility] [address] [id number] [place] [id number] Feb, [facility] [address] [id number] [address] [place] [id number] Feb, [facility] [address] [id number] [address] [place] [address] Feb, [facility] [address] [id number] [place] [id number] Feb, [facility] [address] [id number] [place] [id number] Feb, [facility] [place] [address] [id number] [place] [id number] Jan, [facility] [address] [id number] [address] [place] [address] Jan, [facility] [place] [address] [id number] [place] [id number] Jan, [facility] [place] [address] [id number] [place] [id number] Jan, [facility] [place] [address] [id number] [place] [id number] Jan, [facility] [address] [facility] [id number] [place] [address] Jan, [facility] [address] [facility] [id number] [address] [place] [address] Jan, [facility] [address] [facility] [id number] [address] [place] [address] Aug, [facility] [place] [address] [id number] [place] [id number] Aug, [facility] [address] [facility] [id number] [address] [place] [id number] Jul, [facility] [address] [facility] [id number] [address] [place] [address] Jul, [facility] [address] [facility] [id number] [address] [place] [address] Jul, [facility] [place] [address] [id number] [place] [id number] Jul, 2011 [facility] [address] [facility] [id number] [address] [place] [address] Jul, [facility] [address] [id number] [place] [id number] Jul, [facility] [address] [facility] [id number] [address] [place] [address] Jul, [facility] [place] [address] [id number] [place] [id number] Jul, [facility] [place] [address] [id number] [place] [id number] Jul, [facility] [address] [id number] [place] [id number] Jul, [facility] [address] [facility] [id number] [address] [place] [address] May, [facility] [place] [address] [id number] [address] [place] [id number] May, [facility] [place] [address] [id number] [address] [place] [id number] May, [facility] [place] [address] [id number] [address] [place] [id number] Apr, [facility] [place] [address] [id number] [address] [place] [id number] Jan, [facility] [place] [address] [id number] [address] [place] [id number] Jan, [facility] [place] [address] [id number] [address] [place] [id number] Dec, [facility] [place] [place] [address] [id number] [address] [place] [id number] Dec, [facility] [place], [facility] [address] [id number] [address] [place] [id number] May, [facility] [place], [facility] [address] [id number] [address] [place] [id number] Mar, [facility] [place], [facility] [address] [id number] [address] [place] [id number] Mar, [facility], [place], [facility] [address] [id number] [address] [place] [phone] 14 Jan, 2009 IMMUNIZATIONS No Known Immunizations SOCIAL HISTORY Never Assessed REASON FOR VISIT PLAN OF CARE VITAL SIGNS Height 63 in 2012-10-17 Weight 197 lbs 2012-10-17 Temperature 98.6 degrees Fahrenheit 2012-10-17 Heart Rate 72 bpm 2012-10-17 Respiratory Rate 18 2012-10-17 Blood pressure systolic 122 mmHg 2012-10-17 Blood pressure diastolic 80 mmHg 2012-10-17 MEDICATIONS Unknown Medications RESULTS No Results PROCEDURES Procedure Date Ordered Result Body Site THER/PROPH/DIAG INJ, SC/IM October 17, 2012 INJ METHYLPRDNISOLONE ACTAT 80 MG October 17, 2012 INSTRUCTIONS MEDICATIONS ADMINISTERED No Known Medications [...]
--- OUTSIDE RECORDS SUMMARY | 2020-01-28 13:09 | XMS REPORT ---
Author Author Heydi Candelario Doctor Organization [facility] Address Unknown Phone Unavailable Care Team Providers Care Harnessmaker Name Role Phone Migration, Doctor Unavailable Unavailable PROBLEMS Type Condition ICD9-CM Code VKE07-MK Code Onset Dates Condition S tatus SNOMED Code Problem Chronic pain syndrome G89.4 Active 004282367 Problem Sore throat J02.9 Active 27664888 3 Problem Choriocarcinoma C58 Active 1881 87465 Problem halfway current use of anticoagulant Z79.01 Active 848707248 Problem History of venous thromboembolism V12.51 Active 021918239 Problem Cellulitis of unspecified part of limb L03.119 Active 405596508 Problem Gastroesophageal reflux disease without esophagitis K21.9 Active 136227098 Problem History of pulmonary embolism Z86.711 Active 850243325 Problem Pseudotumor cerebri G93.2 Active 01517222 Problem History of DVT (deep vein thrombosis) Z86.718 Active 334722709 ALLERGIES No Information ENCOUNTERS Encounter Location Date Diagnosis [place] [address] [place] [id number] [address] [place] [address] 14 Nov, 2019 Encounter for screening labo ratory testing for COVID-19 virus Z11.59 [place] [address] [place] [id number] [address] [place] [address] 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, 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 [place] [id number] [facility] [id number] [address] [place] [address] Apr, halfway current use of ant icoagulant Z79.01 [place] [address] [facility] [id number] [address] [place] [address] Apr, Cellulitis of unspecified pa rt of limb L03.119 ; Allergic contact dermatitis due to adhesives L23.1 and Chronic pain syndrome G89.4 [place] [address] [address] Apr, [facility] [address] [address] Apr, halfway current use of ant icoagulant Z79.01 ; Cellulitis of unspecified part of limb L03.119 ; Chronic pain syndrome G89.4 and Anxiety F41.9 [place] [address] [address] Apr, [facility] [address] [address] Apr, [place] [address] [address] Mar, [place] [address] [address] Mar, [place] [address] [address] Mar, Sore throat J02.9 ; Gastroes ophageal reflux disease without esophagitis K21.9 ; Pseudotumor cerebri G93.2 ; Chronic pain syndrome G89.4 ; Choriocarcinoma C58 ; History of pulmonary embolism Z86.711 ; History of DVT (deep vein thrombosis) Z86.718 ; Anxiety F41.9 and Tachycardia R00.0 [place] [address] [place] [id number] [address] [place] [address] Feb, Anxiety 300.00 and Chronic p ain 338.29 [facility] [address] [place] [id number] [address] [place] [address] Feb, [facility] [address] [address] Feb, [facility] [address] [address] [id number] [address] [place] [address] Jan, watermelon inspector current use of ant icoagulant therapy V58.61 and Dysuria 788.1 [place] [address] [place] [id number] [address] [place] [address] Jan, Dysuria 788.1 [place] [address] [address] Jan, Anxiety 300.00 and Chronic p ain 338.29 [place] [address] [address] Jan, [place] [address] [address] Jan, [place] [address] [address] Jan, [place] [address] [address] Dec, Weakness 780.79 [place] [address] [address] Dec, watermelon inspector current use of ant icoagulant therapy V58.[address] [address] Dec, Palpitations 785.1 ; Tremor 781.0 ; Weakness 780.79 ; halfway current use of anticoagulant therapy V58.61 and Yeast vaginitis 112.1 [place] [address] [place] [id number] [address] [place] [address] Dec, [place] [address] [address] Dec, Cervicalgia 723.1 ; Tachycar yoseph 785.0 ; Pseudotumor cerebri 348.2 and History of venous thromboembolism V12.51 [place] [address] [address] Nov, [place] [address] [place] [id number] [address] [place] [address] Nov, [place] [address] [place] [id number] [place] [address] 24 Nov, 2014 Tachycardia 785.0 ; Pseudotu mor cerebri 348.2 ; Anxiety 300.00 and History of venous thromboembolism V12.51 [facility] [address] [id number] [address] [place] [address] 19 Nov, 2014 [facility] [address] [id number] [address] [place] [address] 18 Nov, 2014 [facility] [address] [id number] [address] [place] [address] 16 Nov, 2014 [facility] [address] [id number] [address] [place] [address] Nov, [facility] [address] [facility] [id number] [address] [place] [address] Nov, [facility] [address] [facility] [id number] [address] [place] [address] Nov, [facility] [address] [id number] [address] [place] [address] Nov, [facility] [address] [facility] [id number] [address] [place] [address] October, [facility] [address] [facility] [id number] [address] [place] [address] October, [facility] [address] [facility] [id number] [address] [place] [address] October, Pain in thoracic spine 724.1 and Tachycardia 785.0 [facility] [address] [id number] [address] [place] [address] October, [facility] [address] [facility] [id number] [address] [place] [address] October, [facility] [address] [facility] [id number] [address] [place] [address] 14 Sep, 2014 [facility] [address] [facility] [id number] [address] [place] [address] Sep, [facility] [address] [id number] [address] [place] [address], [place] [address] Aug, [facility] [address] [id number] [address] [place] [address], [place] [address] Aug, [facility] [address] [id number] [address] [place] [address], [place] [address] Aug, [facility] [address] [id number] [address] [place] [address], [place] [address] Aug, [facility] [address] [id number] [address] [place] [address], [place] [address] Aug, [facility] [address] [id number] [address] [place] [address], [place] [address] Aug, [facility] [address] [id number] [address] [place] [address], [place] [address] Aug, [facility] [address] [id number] [address] [place] [address], [place] [address] Aug, [facility] [address] [id number] [address] [place] [address], [place] [address] Aug, [facility] [address] [id number] [address] [place] [address], [place] [address] Aug, [facility] [address] [id number] [address] [place] [address], [place] [address] Aug, [facility] [address] [id number] [address] [place] [address], [place] [address] Aug, [facility] [address] [id number] [address] [place] [address], [place] [address] Jul, [facility] [address] [id number] [address] [place] [address], [place] [address] Jul, [facility] [address] [id number] [address] [place] [address], [place] [address] Jul, [facility] [address] [id number] [address] [place] [address], [place] [address] 23 Jul, 2014 [facility] [address] [id number] [address] [place] [address], [place] [address] 23 Jul, 2014 [facility] [address] [id number] [address] [place] [address], [place] [address] 23 Jul, 2014 [facility] [address] [id number] [address] [place] [address], [place] [address] 23 Jul, 2014 [facility] [address] [id number] [address] [place] [address], [place] [address] 23 Jul, 2014 [facility] [address] [id number] [address] [place] [address], [place] [address] 20 Jul, 2014 [facility] [address] [id number] [address] [place] [address], [place] [address] 20 Jul, 2014 [facility] [address] [id number] [address] [place] [address] 19 Jul, 2014 [facility] [address] [id number] [address] [place] [address], [place] [address] 19 Jul, 2014 [facility] [address] [id number] [address] [place] [address] 17 Jul, 2014 [facility] [address] [id number] [address] [place] [address] 17 Jul, 2014 [facility] [address] [id number] [address] [place] [address] 16 Jul, 2014 [facility] [address] [id number] [address] [place] [address], [place] [address] 16 Jul, 2014 [facility] [address] [id number] [address] [place] [address] 16 Jul, 2014 [facility] [address] [id number] [address] [place] [address] 16 Jul, 2014 [facility] [address] [id number] [address] [place] [address], [place] [address] 13 Jul, 2014 [facility] [address] [id number] [address] [place] [address], [place] [address] Jul, 2014 [facility] [address] [id number] [address] [place] [address], [place] [address] Jul, 2014 [facility] [address] [id number] [address] [place] [address], [place] [address] Jul, 2014 [facility] [address] [id number] [address] [place] [address], [place] [address] Jul, 2014 [facility] [address] [id number] [address] [place] [address], [place] [address] Jul, [facility] [address] [id number] [address] [place] [address], [place] [address] Jul, 2014 [facility] [address] [id number] [address] [place] [address], [place] [address] Jul, [facility] [address] [id number] [address] [place] [address], [place] [address] Jul, [facility] [address] [id number] [address] [place] [address], [place] [address] Jul, [facility] [address] [id number] [address] [place] [address] Jul, [facility] [address] [id number] [address] [place] [address] Jul, [facility] [address] [id number] [address] [place] [address], [place] [address] Jun, [facility] [address] [id number] [address] [place] [address] Jun, [facility] [address] [id number] [address] [place] [address] Jun, [facility] [address] [id number] [address] [place] [address] Jun, [facility] [address] [id number] [address] [place] [address], [place] [address] Jun, [facility] [address] [id number] [address] [place] [address], [place] [address] Jun, [facility] [address] [id number] [address] [place] [address], [place] [address] Jun, [facility] [address] [id number] [address] [place] [address], [place] [address] Jun, [facility] [address] [id number] [address] [place] [address], [place] [address] Jun, [facility] [address] [id number] [address] [place] [address], [place] [address] Jun, [facility] [address] [id number] [address] [place] [address], [place] [address] Jun, [facility] [address] [id number] [address] [place] [address], [place] [address] Jun, [facility] [address] [id number] [address] [place] [address], [place] [address] Jun, [facility] [address] [id number] [address] [place] [address], [place] [address] Jun, [facility] [address] [id number] [address] [place] [address], [place] [address] Jun, [facility] [address] [id number] [address] [place] [address], [place] [address] Jun, [facility] [address] [id number] [address] [place] [address], [place] [address] Jun, [facility] [address] [id number] [address] [place] [address], [place] [address] Jun, [facility] [address] [id number] [address] [place] [address], [place] [address] Jun, [facility] [address] [id number] [address] [place] [address], [place] [address] Jun, [facility] [address] [id number] [address] [place] [address], [place] [address] May, [facility] [address] [id number] [address] [place] [address], [place] [address] May, [facility] [address] [id number] [address] [place] [address], [place] [address] May, [facility] [address] [id number] [address] [place] [address], [place] [address] May, [facility] [address] [id number] [address] [place] [address], [place] [address] May, [facility] [address] [id number] [address] [place] [address], [place] [address] May, [facility] [address] [id number] [address] [place] [address], [place] [address] May, [facility] [address] [id number] [address] [place] [address], [place] [address] May, [facility] [address] [id number] [address] [place] [address], [place] [address] May, [facility] [address] [id number] [address] [place] [address], [place] [address] May, [facility] [address] [id number] [address] [place] [address], [place] [address] May, [facility] [address] [id number] [address] [place] [address], [place] [address] 18 May, 2014 [facility] [address] [id number] [address] [place] [address], [place] [address] 18 May, 2014 [facility] [address] [id number] [address] [place] [address], [place] [address] 17 May, 2014 [facility] [address] [id number] [address] [place] [address], [place] [address] 16 May, 2014 [facility] [address] [id number] [facility] [place] [address] 16 May, 2014 [facility] [address] [id number] [facility] [place] [address] 15 May, 2014 [facility] [address] [id number] [address] [place] [address], [place] [address] 15 May, 2014 [facility] [address] [id number] [address] [place] [address], [place] [address] May, [facility] [address] [id number] [address] [place] [address], [place] [address] May, [facility] [address] [id number] [address] [place] [address], [place] [address] May, [facility] [address] [id number] [address] [place] [address], [place] [address] May, [facility] [address] [id number] [address] [place] [address], [place] [address] May, [facility] [address] [id number] [address] [place] [address], [place] [address] May, [facility] [address] [id number] [address] [place] [address], [place] [address] May, [facility] [address] [id number] [address] [place] [address], [place] [address] May, [facility] [address] [id number] [address] [place] [address], [place] [address] May, [facility] [address] [id number] [address] [place] [address], [place] [address] May, [facility] [address] [id number] [address] [place] [address], [place] [address] May, [facility] [address] [id number] [address] [place] [address], [place] [address] May, [facility] [address] [id number] [address] [place] [address], [place] [address] 05 May, 2014 [facility] [address] [id number] [address] [place] [address], [place] [address] May, [facility] [address] [id number] [address] [place] [address], [place] [address] May, [facility] [address] [id number] [address] [place] [address], [place] [address] May, [facility] [address] [id number] [address] [place] [address], [place] [address] Apr, [facility] [address] [id number] [address] [place] [address], [place] [address] Apr, [facility] [address] [id number] [address] [place] [address], [place] [address] Apr, [facility] [address] [id number] [address] [place] [address], [place] [address] Apr, [facility] [address] [id number] [address] [place] [address], [place] [address] Apr, [facility] [address] [id number] [address] [place] [address], [place] [address] Apr, [facility] [address] [id number] [address] [place] [address], [place] [address] Apr, [facility] [address] [id number] [address] [place] [address], [place] [address] Apr, [facility] [address] [id number] [address] [place] [address], [place] [address] Apr, [facility] [address] [id number] [address] [place] [address], [place] [address] Apr, [facility] [address] [id number] [address] [place] [address], [place] [address] Mar, [facility] [address] [id number] [address] [place] [address], [place] [address] Mar, [facility] [address] [id number] [address] [place] [address], [place] [address] 31 Mar, 2013 [facility] [address] [id number] [address] [place] [address], [place] [address] Mar, 2013 [facility] [address] [id number] [address] [place] [address], [place] [address] 30 Mar, 2014 [facility] [address] [id number] [address] [place] [address], [place] [address] 30 Mar, 2014 [facility] [address] [id number] [address] [place] [address], [place] [address] Mar, [facility] [address] [id number] [address] [place] [address], [place] [address] Mar, [facility] [address] [id number] [address] [place] [address], [place] [address] Mar, [facility] [address] [id number] [address] [place] [address], [place] [address] Mar, [facility] [address] [id number] [address] [place] [address], [place] [address] Mar, [facility] [address] [id number] [address] [place] [address], [place] [address] Mar, [facility] [address] [id number] [address] [place] [address], [place] [address] Mar, [facility] [address] [id number] [address] [place] [address], [place] [address] Mar, [facility] [address] [id number] [address] [place] [address], [place] [address] Mar, [facility] [address] [id number] [address] [place] [address], [place] [address] Mar, [facility] [address] [id number] [address] [place] [address], [place] [address] Mar, [facility] [address] [id number] [address] [place] [address] Mar, [facility] [address] [id number] [address] [place] [address], [place] [address] Mar, [facility] [address] [id number] [address] [place] [address], [place] [address] Mar, [facility] [address] [id number] [address] [place] [address], [place] [address] 05 Sep, 2013 [facility] [address] [id number] [address] [place] [address], [place] [address] 05 Sep, 2013 [facility] [address] [id number] [address] [place] [address], [place] [address] 04 Feb, 2013 [facility] [address] [id number] [address] [place] [address], [place] [address] 04 Feb, 2013 [facility] [address] [id number] [address] [place] [address], [place] [address] Feb, 2013 [facility] [address] [id number] [address] [place] [address], [place] [address] Feb, 2013 [facility] [address] [id number] [address] [place] [address], [place] [address] Feb, 2013 [facility] [address] [id number] [address] [place] [address], [place] [address] Feb, 2013 [facility] [address] [id number] [address] [place] [address], [place] [address] Feb, 2013 [facility] [address] [id number] [address] [place] [address], [place] [address] Feb, 2013 [facility] [address] [id number] [address] [place] [address], [place] [address] Jan, [facility] [address] [id number] [address] [place] [address], [place] [address] Jan, [facility] [address] [id number] [address] [place] [address], [place] [address] Jan, [facility] [address] [id number] [facility] [place] [address] Jan, [facility] [address] [id number] [facility] [place] [address] Jan, [facility] [address] [id number] [facility] [place] [address] Jan, [facility] [address] [id number] [address] [place] [address], [place] [address] Jan, [facility] [address] [id number] [address] [place] [address], [place] [address] Jan, [facility] [address] [id number] [address] [place] [address], [place] [address] Jan, [facility] [address] [id number] [address] [place] [address], [place] [address] Jan, [facility] [address] [id number] [address] [place] [address], [place] [address] Jan, [facility] [address] [id number] [address] [place] [address], [place] [address] Jan, [facility] [address] [id number] [address] [place] [address], [place] [address] Dec, [facility] [address] [id number] [address] [place] [address], [place] [address] Dec, [facility] [address] [id number] [address] [place] [address], [place] [address] Dec, [facility] [address] [id number] [address] [place] [address], [place] [address] Dec, [facility] [address] [id number] [address] [place] [address], [place] [address] Dec, [facility] [address] [id number] [address] [place] [address], [place] [address] Dec, [facility] [address] [id number] [address] [place] [address], [place] [address] Dec, [facility] [address] [id number] [address] [place] [address], [place] [address] Dec, 2013 [facility] [address] [id number] [address] [place] [address], [place] [address] Dec, [facility] [address] [id number] [address] [place] [address], [place] [address] Dec, [facility] [address] [id number] [address] [place] [address], [place] [address] Dec, [facility] [address] [id number] [address] [place] [address], [place] [address] Dec, [facility] [address] [id number] [address] [place] [address], [place] [address] Nov, [facility] [address] [id number] [address] [place] [address], [place] [address] Nov, [facility] [address] [id number] [address] [place] [address], [place] [address] Nov, [facility] [address] [id number] [address] [place] [address], [place] [address] Nov, [facility] [address] [id number] [address] [place] [address], [place] [address] Nov, [facility] [address] [id number] [address] [place] [address], [place] [address] Nov, [facility] [address] [id number] [address] [place] [address], [place] [address] Nov, [facility] [address] [id number] [address] [place] [address], [place] [address] Nov, [facility] [address] [id number] [address] [place] [address], [place] [address] Nov, [facility] [address] [id number] [address] [place] [address], [place] [address] Nov, [facility] [address] [id number] [address] [place] [address], [place] [address] Nov, [facility] [address] [id number] [address] [place] [address], [place] [address] Nov, [facility] [address] [id number] [address] [place] [address], [place] [address] Nov, [facility] [address] [id number] [address] [place] [address], [place] [address] Nov, [facility] [address] [id number] [address] [place] [address], [place] [address] October, [facility] [address] [id number] [address] [place] [address], [place] [address] October, [facility] [address] [id number] [address] [place] [address], [place] [address] October, [facility] [address] [id number] [address] [place] [address], [place] [address] October, [facility] [address] [id number] [address] [place] [address], [place] [address] October, [facility] [address] [id number] [address] [place] [address], [place] [address] October, [facility] [address] [id number] [address] [place] [address], [place] [address] October, [facility] [address] [id number] [address] [place] [address], [place] [address] October, [facility] [address] [id number] [address] [place] [address], [place] [address] October, [facility] [address] [id number] [address] [place] [address], [place] [address] October, [facility] [address] [id number] [address] [place] [address], [place] [address] October, [facility] [address] [id number] [address] [place] [address], [place] [address] October, [facility] [address] [id number] [facility] [place] [address] Sep, [facility] [address] [id number] [facility] [place] [address] Sep, [facility] [address] [id number] [facility] [place] [address] Sep, [facility] [address] [id number] [address] [place] [address], [place] [address] Sep, [facility] [address] [id number] [address] [place] [address], [place] [address] Sep, [facility] [address] [id number] [address] [place] [address], [place] [address] Sep, [facility] [address] [id number] [address] [place] [address], [place] [address] Aug, [facility] [address] [id number] [address] [place] [address], [place] [address] Aug, [facility] [address] [id number] [address] [place] [address], [place] [address] Aug, [facility] [address] [id number] [address] [place] [address], [place] [address] Aug, [facility] [address] [id number] [address] [place] [address], [place] [address] Aug, [facility] [address] [id number] [address] [place] [address], [place] [address] Aug, [facility] [address] [id number] [address] [place] [address], [place] [address] Jul, [facility] [address] [id number] [address] [place] [address], [place] [address] Jul, [facility] [address] [id number] [address] [place] [address], [place] [address] Jul, [facility] [address] [id number] [address] [place] [address], [place] [address] Jul, [facility] [address] [id number] [address] [place] [address], [place] [address] Jul, [facility] [address] [id number] [address] [place] [address], [place] [address] Jul, [facility] [address] [id number] [address] [place] [address], [place] [address] Jul, [facility] [address] [id number] [address] [place] [address], [place] [address] Jul, [facility] [address] [id number] [address] [place] [address], [place] [address] Jul, [facility] [address] [id number] [address] [place] [address], [place] [address] Jul, [facility] [address] [id number] [address] [place] [address], [place] [address] Jun, [facility] [address] [id number] [address] [place] [address], [place] [address] Jun, [facility] [address] [id number] [address] [place] [address], [place] [address] Jun, [facility] [address] [id number] [address] [place] [address], [place] [address] Jun, [facility] [address] [id number] [address] [place] [address], [place] [address] Jun, [facility] [address] [id number] [address] [place] [address], [place] [address] Jun, [facility] [address] [id number] [address] [place] [address], [place] [address] Jun, [facility] [address] [id number] [address] [place] [address], [place] [address] Jun, [facility] [address] [id number] [address] [place] [address], [place] [address] May, [facility] [address] [id number] [address] [place] [address], [place] [address] May, [facility] [address] [id number] [address] [place] [address], [place] [address] May, [facility] [address] [id number] [address] [place] [address], [place] [address] May, [facility] [address] [id number] [address] [place] [address], [place] [address] May, [facility] [address] [id number] [address] [place] [address], [place] [address] May, [facility] [address] [id number] [address] [place] [address], [place] [address] May, [facility] [address] [id number] [address] [place] [address], [place] [address] May, [facility] [address] [id number] [address] [place] [address], [place] [address] Apr, [facility] [address] [id number] [address] [place] [address], [place] [address] Apr, [facility] [address] [id number] [address] [place] [address], [place] [address] Apr, [facility] [address] [id number] [address] [place] [address], [place] [address] Apr, [facility] [address] [id number] [address] [place] [address], [place] [address] Apr, [facility] [address] [id number] [address] [place] [address], [place] [address] Apr, [facility] [address] [id number] [address] [place] [address], [place] [address] Mar, [facility] [address] [id number] [address] [place] [address], [place] [address] Mar, [facility] [address] [id number] [address] [place] [address], [place] [address] Mar, [facility] [address] [id number] [address] [place] [address], [place] [address] Mar, [facility] [address] [id number] [address] [place] [address], [place] [address] Mar, [facility] [address] [id number] [address] [place] [address], [place] [address] Mar, [facility] [address] [id number] [address] [place] [address], [place] [address] Mar, [facility] [address] [id number] [address] [place] [address], [place] [address] 30 Feb, 2013 [facility] [address] [id number] [address] [place] [address], [place] [address] 30 Feb, 2013 [facility] [address] [id number] [address] [place] [address], [place] [address] Feb, [facility] [address] [id number] [address] [place] [address], [place] [address] Feb, [facility] [address] [id number] [address] [place] [address], [place] [address] Feb, [facility] [address] [id number] [address] [place] [address], [place] [address] Feb, [facility] [address] [id number] [address] [place] [address], [place] [address] Jan, [facility] [address] [id number] [address] [place] [address], [place] [address] Jan, [facility] [address] [id number] [address] [place] [address], [place] [address] Jan, [facility] [address] [id number] [address] [place] [address], [place] [address] Jan, [facility] [address] [id number] [address] [place] [address], [place] [address] Jan, [facility] [address] [id number] [address] [place] [address], [place] [address] Jan, [facility] [address] [id number] [address] [place] [address], [place] [address] Jan, [facility] [address] [id number] [address] [place] [address], [place] [address] Jan, [facility] [address] [id number] [address] [place] [address], [place] [address] Jan, [facility] [address] [id number] [address] [place] [address], [place] [address] Dec, [facility] [address] [id number] [address] [place] [address], [place] [address] Dec, [facility] [address] [id number] [address] [place] [address], [place] [address] Dec, [facility] [address] [id number] [address] [place] [address], [place] [address] Dec, [facility] [address] [id number] [address] [place] [address], [place] [address] Dec, [facility] [address] [id number] [address] [place] [address], [place] [address] Dec, [facility] [address] [id number] [address] [place] [address], [place] [address] Dec, [facility] [address] [id number] [address] [place] [address], [place] [address] Dec, [facility] [address] [id number] [address] [place] [address], [place] [address] Dec, [facility] [address] [id number] [address] [place] [address], [place] [address] Dec, [facility] [address] [id number] [address] [place] [address], [place] [address] Dec, [facility] [address] [id number] [address] [place] [address], [place] [address] Dec, [facility] [address] [id number] [address] [place] [address], [place] [address] Dec, [facility] [address] [id number] [address] [place] [address], [place] [address] Nov, [facility] [address] [id number] [address] [place] [address], [place] [address] Nov, [facility] [address] [id number] [address] [place] [address], [place] [address] Nov, [facility] [address] [id number] [address] [place] [address], [place] [address] Nov, [facility] [address] [id number] [address] [place] [address], [place] [address] October, [facility] [address] [id number] [address] [place] [address], [place] [address] October, [facility] [address] [id number] [address] [place] [address], [place] [address] October, [facility] [address] [id number] [address] [place] [address], [place] [address] October, [facility] [address] [id number] [address] [place] [address], [place] [address] October, [facility] [address] [id number] [address] [place] [address], [place] [address] October, [facility] [address] [id number] [address] [place] [address], [place] [address] Sep, [facility] [address] [id number] [address] [place] [address], [place] [address] Sep, [facility] [address] [id number] [address] [place] [address], [place] [address] Sep, [facility] [address] [id number] [address] [place] [address], [place] [address] Sep, [facility] [address] [id number] [address] [place] [address], [place] [address] 19 Sep, 2012 [facility] [address] [id number] [address] [place] [address], [place] [address] 16 Sep, 2012 [facility] [address] [id number] [address] [place] [address], [place] [address] Sep, [facility] [address] [id number] [address] [place] [address], [place] [address] Sep, [facility] [address] [id number] [address] [place] [address], [place] [address] Sep, [facility] [address] [id number] [address] [place] [address], [place] [address] Sep, [facility] [address] [id number] [address] [place] [address], [place] [address] Sep, [facility] [address] [id number] [address] [place] [address], [place] [address] Aug, [facility] [address] [id number] [address] [place] [address], [place] [address] Aug, [facility] [address] [id number] [address] [place] [address], [place] [address] 25 Aug, 2012 [facility] [address] [id number] [address] [place] [address], [place] [address] Aug, [facility] [address] [id number] [address] [place] [address], [place] [address] 19 Aug, 2012 [facility] [address] [id number] [address] [place] [address], [place] [address] 18 Aug, 2012 [facility] [address] [id number] [address] [place] [address], [place] [address] 17 Aug, 2012 [facility] [address] [id number] [address] [place] [address], [place] [address] 15 Aug, 2012 [facility] [address] [id number] [address] [place] [address], [place] [address] 15 Aug, 2012 [facility] [address] [id number] [address] [place] [address], [place] [address] Aug, [facility] [address] [id number] [address] [place] [address], [place] [address] Aug, [facility] [address] [id number] [address] [place] [address], [place] [address] Aug, [facility] [address] [id number] [address] [place] [address], [place] [address] Jul, [facility] [address] [id number] [address] [place] [address], [place] [address] Jul, [facility] [address] [id number] [address] [place] [address], [place] [address] Jul, [facility] [address] [id number] [address] [place] [address], [place] [address] Jul, [facility] [address] [id number] [address] [place] [address], [place] [address] Jul, [facility] [address] [id number] [address] [place] [address], [place] [address] Jul, [facility] [address] [id number] [address] [place] [address], [place] [address] Jul, [facility] [address] [id number] [address] [place] [address], [place] [address] Jul, [facility] [address] [id number] [address] [place] [address], [place] [address] Jul, [facility] [address] [id number] [address] [place] [address], [place] [address] Jul, [facility] [address] [id number] [address] [place] [address], [place] [address] May, [facility] [address] [id number] [place] [id number] May, [facility] [address] [id number] [address] [address] May, [facility] [address] [id number] [address] [place] [address] May, [facility] [address] [id number] [address] [place] [address] May, [facility] [address] [id number] [address] [place] [address] Apr, [facility] [address] [id number] [place] [id number] Apr, [facility] [address] [id number] [address] [place] [address] Apr, [facility] [address] [id number] [address] [place] [address] Mar, [facility] [address] [id number] [place] [id number] Mar, [facility] [address] [id number] [address] [place] [address] Mar, [facility] [address] [id number] [place] [id number] Feb, [facility] [address] [id number] [address] [place] [address] Feb, [facility] [address] [id number] [address] [place] [address] Feb, [facility] [address] [id number] [place] [id number] Feb, [facility] [address] [id number] [place] [id number] Feb, [facility] [address] [id number] [place] [id number] Jan, [facility] [address] [id number] [address] [place] [id number] Jan, [facility] [address] [id number] [place] [id number] Jan, [facility] [address] [id number] [place] [id number] Jan, [facility] [address] [id number] [place] [id number] Jan, [facility] [address] [facility] [id number] [address] [address] Jan, [facility] [address] [facility] [id number] [address] [place] [id number] Jan, [facility] [address] [facility] [id number] [address] [place] [id number] Aug, [facility] [address] [id number] [place] [id number] Aug, [facility] [address] [facility] [id number] [address] [place] [id number] Jul, [facility] [address] [facility] [id number] [address] [place] [id number] Jul, [facility] [address] [facility] [id number] [address] [place] [id number] Jul, [facility] [address] [id number] [place] [id number] Jul, 2011 [facility] [address] [facility] [id number] [address] [place] [id number] Jul, [facility] [address] [id number] [place] [id number] Jul, [facility] [address] [facility] [id number] [address] [place] [id number] Jul, [facility] [address] [id number] [place] [id number] Jul, [facility] [address] [id number] [place] [id number] Jul, [facility] [address] [id number] [place] [id number] Jul, [facility] [address] [facility] [id number] [address] [place] [id number] May, [facility] [address] [id number] [address] [place] [id number] May, [facility] [address] [id number] [address] [place] [id number] May, [facility] [address] [id number] [address] [place] [id number] Apr, [facility] [address] [id number] [address] [place] [id number] Jan, [facility] [address] [id number] [address] [place] [id number] Jan, [facility] [address] [id number] [address] [place] [id number] Dec, [facility] [address] [id number] [address] [place] [id number] Dec, [facility] [address] [id number] [address] [place] [id number] May, [facility] [address] [id number] [address] [place] [id number] Mar, [facility] [address] [id number] [address] [place] [id number] Mar, [facility] [address] [id number] [address] [place] [id number] 14 Jan, 2009 IMMUNIZATIONS No Known Immunizations [...]
--- OUTSIDE RECORDS SUMMARY | 2020-01-28 13:10 | XMS REPORT ---
Author Author Heydi Candelario Doctor Organization [facility] Address Unknown Phone Unavailable Care Team Providers Care Student Success Advisor Name Role Phone Migration, Doctor Unavailable Unavailable PROBLEMS Type Condition ICD9-CM Code [id number] Code Onset Dates Condition S tatus SNOMED Code Problem Chronic pain syndrome G89.4 Active 069343130 Problem Sore throat J02.9 Active 14021248 3 Problem Choriocarcinoma C58 Active 1881 67851 Problem residential current use of anticoagulant Z79.01 Active 409441526 Problem History of venous thromboembolism V12.51 Active 090879451 Problem Cellulitis of unspecified part of limb L03.119 Active 799808021 Problem Gastroesophageal reflux disease without esophagitis K21.9 Active 589710059 Problem History of pulmonary embolism Z86.711 Active 942302693 Problem Pseudotumor cerebri G93.2 Active 46569659 Problem History of DVT (deep vein thrombosis) Z86.718 Active 710580265 ALLERGIES No Information ENCOUNTERS Encounter Location Date Diagnosis [place] [address] [place] [id number] [address] [place] [address] 14 Nov, 2019 Encounter for screening labo ratory testing for COVID-19 virus Z11.59 [place] [address] [place] [id number] [address] [place] [address] 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, 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 [place] [id number] [facility] [id number] [address] [place] [address] Apr, residential current use of ant icoagulant Z79.01 [place] [address] [facility] [id number] [address] [place] [address] Apr, Cellulitis of unspecified pa rt of limb L03.119 ; Allergic contact dermatitis due to adhesives L23.1 and Chronic pain syndrome G89.4 [place] [address] [address] Apr, [facility] [address] [address] Apr, residential current use of ant icoagulant Z79.01 ; Cellulitis of unspecified part of limb L03.119 ; Chronic pain syndrome G89.4 and Anxiety F41.9 [place] [address] [address] Apr, [facility] [address] [address] Apr, [place] [address] [address] Mar, [place] [address] [address] Mar, [place] [address] [address] Mar, Sore throat J02.9 ; Gastroes ophageal reflux disease without esophagitis K21.9 ; Pseudotumor cerebri G93.2 ; Chronic pain syndrome G89.4 ; Choriocarcinoma C58 ; History of pulmonary embolism Z86.711 ; History of DVT (deep vein thrombosis) Z86.718 ; Anxiety F41.9 and Tachycardia R00.0 [place] [address] [place] [id number] [address] [place] [address] Feb, Anxiety 300.00 and Chronic p ain 338.29 [facility] [address] [place] [id number] [address] [place] [address] Feb, [facility] [address] [address] Feb, [facility] [address] [place] [id number] [address] [place] [address] Jan, 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.61 and Dysuria 788.1 [place] [address] [place] [id number] [address] [place] [address] Jan, Dysuria 788.1 [place] [address] [address] Jan, Anxiety 300.00 and Chronic p ain 338.29 [place] [address] [address] Jan, [place] [address] [address] Jan, [place] [address] [address] Jan, [place] [address] [address] Dec, Weakness 780.79 [place] [address] [address] Dec, 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.[address] [address] Dec, Palpitations 785.1 ; Tremor 781.0 ; Weakness 780.79 ; residential current use of anticoagulant therapy V58.61 and Yeast vaginitis 112.1 [place] [address] [place] [id number] [address] [place] [address] Dec, [place] [address] [address] Dec, Cervicalgia 723.1 ; Tachycar yoseph 785.0 ; Pseudotumor cerebri 348.2 and History of venous thromboembolism V12.51 [place] [address] [address] Nov, [place] [address] [place] [id number] [address] [place] [address] Nov, [place] [address] [place] [address] [place] [address] 24 Nov, 2014 Tachycardia 785.0 ; Pseudotu mor cerebri 348.2 ; Anxiety 300.00 and History of venous thromboembolism V12.51 [facility] [address] [id number] [address] [place] [address] 19 Nov, 2014 [facility] [address] [id number] [address] [place] [address] 18 Nov, 2014 [facility] [address] [id number] [address] [place] [address] 16 Nov, 2014 [facility] [address] [id number] [address] [place] [address] Nov, [facility] [address] [facility] [id number] [address] [place] [address] Nov, [facility] [address] [facility] [id number] [address] [place] [address] Nov, [facility] [address] [id number] [address] [place] [address] Nov, [facility] [address] [facility] [id number] [address] [place] [address] October, [facility] [address] [facility] [id number] [address] [place] [address] October, [facility] [address] [facility] [id number] [address] [place] [address] October, Pain in thoracic spine 724.1 and Tachycardia 785.0 [facility] [address] [id number] [address] [place] [address] October, [facility] [address] [facility] [id number] [address] [place] [address] October, [facility] [address] [facility] [id number] [address] [place] [address] 14 Sep, 2014 [facility] [address] [facility] [id number] [address] [place] [address] Sep, [facility] [address] [id number] [address] [place] [address], [place] [address] Aug, [facility] [address] [id number] [address] [place] [address], [place] [address] Aug, [facility] [address] [id number] [address] [place] [address], [place] [address] Aug, [facility] [address] [id number] [address] [place] [address], [place] [address] Aug, [facility] [address] [id number] [address] [place] [address], [place] [address] Aug, [facility] [address] [id number] [address] [place] [address], [place] [address] Aug, [facility] [address] [id number] [address] [place] [address], [place] [address] Aug, [facility] [address] [id number] [address] [place] [address], [place] [address] Aug, [facility] [address] [id number] [address] [place] [address], [place] [address] Aug, [facility] [address] [id number] [address] [place] [address], [place] [address] Aug, [facility] [address] [id number] [address] [place] [address], [place] [address] Aug, [facility] [address] [id number] [address] [place] [address], [place] [address] Aug, [facility] [address] [id number] [address] [place] [address], [place] [address] Jul, [facility] [address] [id number] [address] [place] [address], [place] [address] Jul, [facility] [address] [id number] [address] [place] [address], [place] [address] Jul, [facility] [address] [id number] [address] [place] [address], [place] [address] 23 Jul, 2014 [facility] [address] [id number] [address] [place] [address], [place] [address] 23 Jul, 2014 [facility] [address] [id number] [address] [place] [address], [place] [address] 23 Jul, 2014 [facility] [address] [id number] [address] [place] [address], [place] [address] 23 Jul, 2014 [facility] [address] [id number] [address] [place] [address], [place] [address] 23 Jul, 2014 [facility] [address] [id number] [address] [place] [address], [place] [address] 20 Jul, 2014 [facility] [address] [id number] [address] [place] [address], [place] [address] 20 Jul, 2014 [facility] [address] [id number] [address] [place] [address] 19 Jul, 2014 [facility] [address] [id number] [address] [place] [address], [place] [address] 19 Jul, 2014 [facility] [address] [id number] [address] [place] [address] 17 Jul, 2014 [facility] [address] [id number] [address] [place] [address] 17 Jul, 2014 [facility] [address] [id number] [address] [place] [address] 16 Jul, 2014 [facility] [address] [id number] [address] [place] [address], [place] [address] 16 Jul, 2014 [facility] [address] [id number] [address] [place] [address] 16 Jul, 2014 [facility] [address] [id number] [address] [place] [address] 16 Jul, 2014 [facility] [address] [id number] [address] [place] [address], [place] [address] 13 Jul, 2014 [facility] [address] [id number] [address] [place] [address], [place] [address] Jul, 2014 [facility] [address] [id number] [address] [place] [address], [place] [address] Jul, 2014 [facility] [address] [id number] [address] [place] [address], [place] [address] Jul, 2014 [facility] [address] [id number] [address] [place] [address], [place] [address] Jul, 2014 [facility] [address] [id number] [address] [place] [address], [place] [address] Jul, [facility] [address] [id number] [address] [place] [address], [place] [address] Jul, 2014 [facility] [address] [id number] [address] [place] [address], [place] [address] Jul, [facility] [address] [id number] [address] [place] [address], [place] [address] Jul, [facility] [address] [id number] [address] [place] [address], [place] [address] Jul, [facility] [address] [id number] [address] [place] [address] Jul, [facility] [address] [id number] [address] [place] [address] Jul, [facility] [address] [id number] [address] [place] [address], [place] [address] Jun, [facility] [address] [id number] [address] [place] [address] Jun, [facility] [address] [id number] [address] [place] [address] Jun, [facility] [address] [id number] [address] [place] [address] Jun, [facility] [address] [id number] [address] [place] [address], [place] [address] Jun, [facility] [address] [id number] [address] [place] [address], [place] [address] Jun, [facility] [address] [id number] [address] [place] [address], [place] [address] Jun, [facility] [address] [id number] [address] [place] [address], [place] [address] Jun, [facility] [address] [id number] [address] [place] [address], [place] [address] Jun, [facility] [address] [id number] [address] [place] [address], [place] [address] Jun, [facility] [address] [id number] [address] [place] [address], [place] [address] Jun, [facility] [address] [id number] [address] [place] [address], [place] [address] Jun, [facility] [address] [id number] [address] [place] [address], [place] [address] Jun, [facility] [address] [id number] [address] [place] [address], [place] [address] Jun, [facility] [address] [id number] [address] [place] [address], [place] [address] Jun, [facility] [address] [id number] [address] [place] [address], [place] [address] Jun, [facility] [address] [id number] [address] [place] [address], [place] [address] Jun, [facility] [address] [id number] [address] [place] [address], [place] [address] Jun, [facility] [address] [id number] [address] [place] [address], [place] [address] Jun, [facility] [address] [id number] [address] [place] [address], [place] [address] Jun, [facility] [address] [id number] [address] [place] [address], [place] [address] May, [facility] [address] [id number] [address] [place] [address], [place] [address] May, [facility] [address] [id number] [address] [place] [address], [place] [address] May, [facility] [address] [id number] [address] [place] [address], [place] [address] May, [facility] [address] [id number] [address] [place] [address], [place] [address] May, [facility] [address] [id number] [address] [place] [address], [place] [address] May, [facility] [address] [id number] [address] [place] [address], [place] [address] May, [facility] [address] [id number] [address] [place] [address], [place] [address] May, [facility] [address] [id number] [address] [place] [address], [place] [address] May, [facility] [address] [id number] [address] [place] [address], [place] [address] May, [facility] [address] [id number] [address] [place] [address], [place] [address] May, [facility] [address] [id number] [address] [place] [address], [place] [address] 18 May, 2014 [facility] [address] [id number] [address] [place] [address], [place] [address] 18 May, 2014 [facility] [address] [id number] [address] [place] [address], [place] [address] 17 May, 2014 [facility] [address] [id number] [address] [place] [address], [place] [address] 16 May, 2014 [facility] [address] [id number] [facility] [address] 16 May, 2014 [facility] [address] [id number] [facility] [address] 15 May, 2014 [facility] [address] [id number] [address] [place] [address], [place] [address] 15 May, 2014 [facility] [address] [id number] [address] [place] [address], [place] [address] May, [facility] [address] [id number] [address] [place] [address], [place] [address] May, [facility] [address] [id number] [address] [place] [address], [place] [address] May, [facility] [address] [id number] [address] [place] [address], [place] [address] May, [facility] [address] [id number] [address] [place] [address], [place] [address] May, [facility] [address] [id number] [address] [place] [address], [place] [address] May, [facility] [address] [id number] [address] [place] [address], [place] [address] May, [facility] [address] [id number] [address] [place] [address], [place] [address] May, [facility] [address] [id number] [address] [place] [address], [place] [address] May, [facility] [address] [id number] [address] [place] [address], [place] [address] May, [facility] [address] [id number] [address] [place] [address], [place] [address] May, [facility] [address] [id number] [address] [place] [address], [place] [address] May, [facility] [address] [id number] [address] [place] [address], [place] [address] 05 May, 2014 [facility] [address] [id number] [address] [place] [address], [place] [address] May, [facility] [address] [id number] [address] [place] [address], [place] [address] May, [facility] [address] [id number] [address] [place] [address], [place] [address] May, [facility] [address] [id number] [address] [place] [address], [place] [address] Apr, [facility] [address] [id number] [address] [place] [address], [place] [address] Apr, [facility] [address] [id number] [address] [place] [address], [place] [address] Apr, [facility] [address] [id number] [address] [place] [address], [place] [address] Apr, [facility] [address] [id number] [address] [place] [address], [place] [address] Apr, [facility] [address] [id number] [address] [place] [address], [place] [address] Apr, [facility] [address] [id number] [address] [place] [address], [place] [address] Apr, [facility] [address] [id number] [address] [place] [address], [place] [address] Apr, [facility] [address] [id number] [address] [place] [address], [place] [address] Apr, [facility] [address] [id number] [address] [place] [address], [place] [address] Apr, [facility] [address] [id number] [address] [place] [address], [place] [address] Mar, [facility] [address] [id number] [address] [place] [address], [place] [address] Mar, [facility] [address] [id number] [address] [place] [address], [place] [address] 31 Mar, 2013 [facility] [address] [id number] [address] [place] [address], [place] [address] Mar, 2013 [facility] [address] [id number] [address] [place] [address], [place] [address] 30 Mar, 2014 [facility] [address] [id number] [address] [place] [address], [place] [address] 30 Mar, 2014 [facility] [address] [id number] [address] [place] [address], [place] [address] Mar, [facility] [address] [id number] [address] [place] [address], [place] [address] Mar, [facility] [address] [id number] [address] [place] [address], [place] [address] Mar, [facility] [address] [id number] [address] [place] [address], [place] [address] Mar, [facility] [address] [id number] [address] [place] [address], [place] [address] Mar, [facility] [address] [id number] [address] [place] [address], [place] [address] Mar, [facility] [address] [id number] [address] [place] [address], [place] [address] Mar, [facility] [address] [id number] [address] [place] [address], [place] [address] Mar, [facility] [address] [id number] [address] [place] [address], [place] [address] Mar, [facility] [address] [id number] [address] [place] [address], [place] [address] Mar, [facility] [address] [id number] [address] [place] [address], [place] [address] Mar, [facility] [address] [id number] [address] [place] [id number] Mar, [facility] [address] [id number] [address] [place] [address], [place] [address] Mar, [facility] [address] [id number] [address] [place] [address], [place] [address] Mar, [facility] [address] [id number] [address] [place] [address], [place] [address] 05 Sep, 2013 [facility] [address] [id number] [address] [place] [address], [place] [address] 05 Sep, 2013 [facility] [address] [id number] [address] [place] [address], [place] [address] 04 Feb, 2013 [facility] [address] [id number] [address] [place] [address], [place] [address] 04 Feb, 2013 [facility] [address] [id number] [address] [place] [address], [place] [address] Feb, 2013 [facility] [address] [id number] [address] [place] [address], [place] [address] Feb, 2013 [facility] [address] [id number] [address] [place] [address], [place] [address] Feb, 2013 [facility] [address] [id number] [address] [place] [address], [place] [address] Feb, 2013 [facility] [address] [id number] [address] [place] [address], [place] [address] Feb, 2013 [facility] [address] [id number] [address] [place] [address], [place] [address] Feb, 2013 [facility] [address] [id number] [address] [place] [address], [place] [address] Jan, [facility] [address] [id number] [address] [place] [address], [place] [address] Jan, [facility] [address] [id number] [address] [place] [address], [place] [address] Jan, [facility] [address] [id number] [facility] [address] Jan, [facility] [address] [id number] [facility] [address] Jan, [facility] [address] [id number] [facility] [address] Jan, [facility] [address] [id number] [address] [place] [address], [place] [address] Jan, [facility] [address] [id number] [address] [place] [address], [place] [address] Jan, [facility] [address] [id number] [address] [place] [address], [place] [address] Jan, [facility] [address] [id number] [address] [place] [address], [place] [address] Jan, [facility] [address] [id number] [address] [place] [address], [place] [address] Jan, [facility] [address] [id number] [address] [place] [address], [place] [address] Jan, [facility] [address] [id number] [address] [place] [address], [place] [address] Dec, [facility] [address] [id number] [address] [place] [address], [place] [address] Dec, [facility] [address] [id number] [address] [place] [address], [place] [address] Dec, [facility] [address] [id number] [address] [place] [address], [place] [address] Dec, [facility] [address] [id number] [address] [place] [address], [place] [address] Dec, [facility] [address] [id number] [address] [place] [address], [place] [address] Dec, [facility] [address] [id number] [address] [place] [address], [place] [address] Dec, [facility] [address] [id number] [address] [place] [address], [place] [address] Dec, 2013 [facility] [address] [id number] [address] [place] [address], [place] [address] Dec, [facility] [address] [id number] [address] [place] [address], [place] [address] Dec, [facility] [address] [id number] [address] [place] [address], [place] [address] Dec, [facility] [address] [id number] [address] [place] [address], [place] [address] Dec, [facility] [address] [id number] [address] [place] [address], [place] [address] Nov, [facility] [address] [id number] [address] [place] [address], [place] [address] Nov, [facility] [address] [id number] [address] [place] [address], [place] [address] Nov, [facility] [address] [id number] [address] [place] [address], [place] [address] Nov, [facility] [address] [id number] [address] [place] [address], [place] [address] Nov, [facility] [address] [id number] [address] [place] [address], [place] [address] Nov, [facility] [address] [id number] [address] [place] [address], [place] [address] Nov, [facility] [address] [id number] [address] [place] [address], [place] [address] Nov, [facility] [address] [id number] [address] [place] [address], [place] [address] Nov, [facility] [address] [id number] [address] [place] [address], [place] [address] Nov, [facility] [address] [id number] [address] [place] [address], [place] [address] Nov, [facility] [address] [id number] [address] [place] [address], [place] [address] Nov, [facility] [address] [id number] [address] [place] [address], [place] [address] Nov, [facility] [address] [id number] [address] [place] [address], [place] [address] Nov, [facility] [address] [id number] [address] [place] [address], [place] [address] October, [facility] [address] [id number] [address] [place] [address], [place] [address] October, [facility] [address] [id number] [address] [place] [address], [place] [address] October, [facility] [address] [id number] [address] [place] [address], [place] [address] October, [facility] [address] [id number] [address] [place] [address], [place] [address] October, [facility] [address] [id number] [address] [place] [address], [place] [address] October, [facility] [address] [id number] [address] [place] [address], [place] [address] October, [facility] [address] [id number] [address] [place] [address], [place] [address] October, [facility] [address] [id number] [address] [place] [address], [place] [address] October, [facility] [address] [id number] [address] [place] [address], [place] [address] October, [facility] [address] [id number] [address] [place] [address], [place] [address] October, [facility] [address] [id number] [address] [place] [address], [place] [address] October, [facility] [address] [id number] [facility] [address] Sep, [facility] [address] [id number] [facility] [address] Sep, [facility] [address] [id number] [facility] [address] Sep, [facility] [address] [id number] [address] [place] [address], [place] [address] Sep, [facility] [address] [id number] [address] [place] [address], [place] [address] Sep, [facility] [address] [id number] [address] [place] [address], [place] [address] Sep, [facility] [address] [id number] [address] [place] [address], [place] [address] Aug, [facility] [address] [id number] [address] [place] [address], [place] [address] Aug, [facility] [address] [id number] [address] [place] [address], [place] [address] Aug, [facility] [address] [id number] [address] [place] [address], [place] [address] Aug, [facility] [address] [id number] [address] [place] [address], [place] [address] Aug, [facility] [address] [id number] [address] [place] [address], [place] [address] Aug, [facility] [address] [id number] [address] [place] [address], [place] [address] Jul, [facility] [address] [id number] [address] [place] [address], [place] [address] Jul, [facility] [address] [id number] [address] [place] [address], [place] [address] Jul, [facility] [address] [id number] [address] [place] [address], [place] [address] Jul, [facility] [address] [id number] [address] [place] [address], [place] [address] Jul, [facility] [address] [id number] [address] [place] [address], [place] [address] Jul, [facility] [address] [id number] [address] [place] [address], [place] [address] Jul, [facility] [address] [id number] [address] [place] [address], [place] [address] Jul, [facility] [address] [id number] [address] [place] [address], [place] [address] Jul, [facility] [address] [id number] [address] [place] [address], [place] [address] Jul, [facility] [address] [id number] [address] [place] [address], [place] [address] Jun, [facility] [address] [id number] [address] [place] [address], [place] [address] Jun, [facility] [address] [id number] [address] [place] [address], [place] [address] Jun, [facility] [address] [id number] [address] [place] [address], [place] [address] Jun, [facility] [address] [id number] [address] [place] [address], [place] [address] Jun, [facility] [address] [id number] [address] [place] [address], [place] [address] Jun, [facility] [address] [id number] [address] [place] [address], [place] [address] Jun, [facility] [address] [id number] [address] [place] [address], [place] [address] Jun, [facility] [address] [id number] [address] [place] [address], [place] [address] May, [facility] [address] [id number] [address] [place] [address], [place] [address] May, [facility] [address] [id number] [address] [place] [address], [place] [address] May, [facility] [address] [id number] [address] [place] [address], [place] [address] May, [facility] [address] [id number] [address] [place] [address], [place] [address] May, [facility] [address] [id number] [address] [place] [address], [place] [address] May, [facility] [address] [id number] [address] [place] [address], [place] [address] May, [facility] [address] [id number] [address] [place] [address], [place] [address] May, [facility] [address] [id number] [address] [place] [address], [place] [address] Apr, [facility] [address] [id number] [address] [place] [address], [place] [address] Apr, [facility] [address] [id number] [address] [place] [address], [place] [address] Apr, [facility] [address] [id number] [address] [place] [address], [place] [address] Apr, [facility] [address] [id number] [address] [place] [address], [place] [address] Apr, [facility] [address] [id number] [address] [place] [address], [place] [address] Apr, [facility] [address] [id number] [address] [place] [address], [place] [address] Mar, [facility] [address] [id number] [address] [place] [address], [place] [address] Mar, [facility] [address] [id number] [address] [place] [address], [place] [address] Mar, [facility] [address] [id number] [address] [place] [address], [place] [address] Mar, [facility] [address] [id number] [address] [place] [address], [place] [address] Mar, [facility] [address] [id number] [address] [place] [address], [place] [address] Mar, [facility] [address] [id number] [address] [place] [address], [place] [address] Mar, [facility] [address] [id number] [address] [place] [address], [place] [address] 30 Feb, 2013 [facility] [address] [id number] [address] [place] [address], [place] [address] 30 Feb, 2013 [facility] [address] [id number] [address] [place] [address], [place] [address] Feb, [facility] [address] [id number] [address] [place] [address], [place] [address] Feb, [facility] [address] [id number] [address] [place] [address], [place] [address] Feb, [facility] [address] [id number] [address] [place] [address], [place] [address] Feb, [facility] [address] [id number] [address] [place] [address], [place] [address] Jan, [facility] [address] [id number] [address] [place] [address], [place] [address] Jan, [facility] [address] [id number] [address] [place] [address], [place] [address] Jan, [facility] [address] [id number] [address] [place] [address], [place] [address] Jan, [facility] [address] [id number] [address] [place] [address], [place] [address] Jan, [facility] [address] [id number] [address] [place] [address], [place] [address] Jan, [facility] [address] [id number] [address] [place] [address], [place] [address] Jan, [facility] [address] [id number] [address] [place] [address], [place] [address] Jan, [facility] [address] [id number] [address] [place] [address], [place] [address] Jan, [facility] [address] [id number] [address] [place] [address], [place] [address] Dec, [facility] [address] [id number] [address] [place] [address], [place] [address] Dec, [facility] [address] [id number] [address] [place] [address], [place] [address] Dec, [facility] [address] [id number] [address] [place] [address], [place] [address] Dec, [facility] [address] [id number] [address] [place] [address], [place] [address] Dec, [facility] [address] [id number] [address] [place] [address], [place] [address] Dec, [facility] [address] [id number] [address] [place] [address], [place] [address] Dec, [facility] [address] [id number] [address] [place] [address], [place] [address] Dec, [facility] [address] [id number] [address] [place] [address], [place] [address] Dec, [facility] [address] [id number] [address] [place] [address], [place] [address] Dec, [facility] [address] [id number] [address] [place] [address], [place] [address] Dec, [facility] [address] [id number] [address] [place] [address], [place] [address] Dec, [facility] [address] [id number] [address] [place] [address], [place] [address] Dec, [facility] [address] [id number] [address] [place] [address], [place] [address] Nov, [facility] [address] [id number] [address] [place] [address], [place] [address] Nov, [facility] [address] [id number] [address] [place] [address], [place] [address] Nov, [facility] [address] [id number] [address] [place] [address], [place] [address] Nov, [facility] [address] [id number] [address] [place] [address], [place] [address] October, [facility] [address] [id number] [address] [place] [address], [place] [address] October, [facility] [address] [id number] [address] [place] [address], [place] [address] October, [facility] [address] [id number] [address] [place] [address], [place] [address] October, [facility] [address] [id number] [address] [place] [address], [place] [address] October, [facility] [address] [id number] [address] [place] [address], [place] [address] October, [facility] [address] [id number] [address] [place] [address], [place] [address] Sep, [facility] [address] [id number] [address] [place] [address], [place] [address] Sep, [facility] [address] [id number] [address] [place] [address], [place] [address] Sep, [facility] [address] [id number] [address] [place] [address], [place] [address] Sep, [facility] [address] [id number] [address] [place] [address], [place] [address] 19 Sep, 2012 [facility] [address] [id number] [address] [place] [address], [place] [address] 16 Sep, 2012 [facility] [address] [id number] [address] [place] [address], [place] [address] Sep, [facility] [address] [id number] [address] [place] [address], [place] [address] Sep, [facility] [address] [id number] [address] [place] [address], [place] [address] Sep, [facility] [address] [id number] [address] [place] [address], [place] [address] Sep, [facility] [address] [id number] [address] [place] [address], [place] [address] Sep, [facility] [address] [id number] [address] [place] [address], [place] [address] Aug, [facility] [address] [id number] [address] [place] [address], [place] [address] Aug, [facility] [address] [id number] [address] [place] [address], [place] [address] 25 Aug, 2012 [facility] [address] [id number] [address] [place] [address], [place] [address] Aug, [facility] [address] [id number] [address] [place] [address], [place] [address] 19 Aug, 2012 [facility] [address] [id number] [address] [place] [address], [place] [address] 18 Aug, 2012 [facility] [address] [id number] [address] [place] [address], [place] [address] 17 Aug, 2012 [facility] [address] [id number] [address] [place] [address], [place] [address] 15 Aug, 2012 [facility] [address] [id number] [address] [place] [address], [place] [address] 15 Aug, 2012 [facility] [address] [id number] [address] [place] [address], [place] [address] Aug, [facility] [address] [id number] [address] [place] [address], [place] [address] Aug, [facility] [address] [id number] [address] [place] [address], [place] [address] Aug, [facility] [address] [id number] [address] [place] [address], [place] [address] Jul, [facility] [address] [id number] [address] [place] [address], [place] [address] Jul, [facility] [address] [id number] [address] [place] [address], [place] [address] Jul, [facility] [address] [id number] [address] [place] [address], [place] [address] Jul, [facility] [address] [id number] [address] [place] [address], [place] [address] Jul, [facility] [address] [id number] [address] [place] [address], [place] [address] Jul, [facility] [address] [id number] [address] [place] [address], [place] [address] Jul, [facility] [address] [id number] [address] [place] [address], [place] [address] Jul, [facility] [address] [id number] [address] [place] [address], [place] [address] Jul, [facility] [address] [id number] [address] [place] [address], [place] [address] Jul, [facility] [address] [id number] [address] [place] [address], [place] [address] May, [facility] [address] [id number] [place] [id number] May, [facility] [address] [id number] [address] [address] May, [facility] [address] [id number] [address] [place] [address] May, [facility] [address] [id number] [address] [place] [address] May, [facility] [address] [id number] [address] [place] [address] Apr, [facility] [address] [id number] [place] [id number] Apr, [facility] [address] [id number] [address] [place] [address] Apr, [facility] [address] [id number] [address] [place] [address] Mar, [facility] [address] [id number] [place] [id number] Mar, [facility] [address] [id number] [address] [place] [address] Mar, [facility] [address] [id number] [place] [id number] Feb, [facility] [address] [id number] [address] [place] [address] Feb, [facility] [address] [id number] [address] [place] [id number] Feb, [facility] [address] [id number] [place] [id number] Feb, [facility] [address] [id number] [place] [id number] Feb, [facility] [address] [id number] [place] [id number] Jan, [facility] [address] [id number] [address] [place] [id number] Jan, [facility] [address] [id number] [place] [id number] Jan, [facility] [address] [id number] [place] [id number] Jan, [facility] [address] [id number] [place] [id number] Jan, [facility] [address] [facility] [id number] [address] [address] Jan, [facility] [address] [facility] [id number] [address] [place] [id number] Jan, [facility] [address] [facility] [id number] [address] [place] [id number] Aug, [facility] [address] [id number] [place] [id number] Aug, [facility] [address] [facility] [id number] [address] [place] [id number] Jul, [facility] [address] [facility] [id number] [address] [place] [id number] Jul, [facility] [address] [facility] [id number] [address] [place] [id number] Jul, [facility] [address] [id number] [place] [id number] Jul, 2011 [facility] [address] [facility] [id number] [address] [place] [id number] Jul, [facility] [address] [id number] [place] [id number] Jul, [facility] [address] [facility] [id number] [address] [place] [id number] Jul, [facility] [address] [id number] [place] [id number] Jul, [facility] [address] [id number] [place] [id number] Jul, [facility] [address] [id number] [place] [id number] Jul, [facility] [address] [facility] [id number] [address] [place] [id number] May, [facility] [address] [id number] [address] [place] [id number] May, [facility] [address] [id number] [address] [place] [id number] May, [facility] [address] [id number] [address] [place] [id number] Apr, [facility] [address] [id number] [address] [place] [id number] Jan, [facility] [address] [id number] [address] [place] [id number] Jan, [facility] [address] [id number] [address] [place] [id number] Dec, [facility] [address] [id number] [address] [place] [id number] Dec, [facility] [address] [id number] [address] [place] [id number] May, [facility] [address] [id number] [address] [place] [id number] Mar, [facility] [address] [id number] [address] [place] [id number] Mar, [facility] [address] [id number] [address] [place] [id number] 14 Jan, 2009 IMMUNIZATIONS No Known Immunizations [...]
--- OUTSIDE RECORDS SUMMARY | 2020-01-28 13:10 | XMS REPORT ---
Author Author Heydi Candelario Doctor Organization [facility] Address Unknown Phone Unavailable Care Team Providers Care Merchandising Assistant Name Role Phone Migration, Doctor Unavailable Unavailable PROBLEMS Type Condition ICD9-CM Code AGU28-MT Code Onset Dates Condition S tatus SNOMED Code Problem Chronic pain syndrome G89.4 Active 254009067 Problem Sore throat J02.9 Active 75506507 3 Problem Choriocarcinoma C58 Active 1881 38226 Problem halfway current use of anticoagulant Z79.01 Active 266453335 Problem History of venous thromboembolism V12.51 Active 112569990 Problem Cellulitis of unspecified part of limb L03.119 Active 409194453 Problem Gastroesophageal reflux disease without esophagitis K21.9 Active 241254199 Problem History of pulmonary embolism Z86.711 Active 224017982 Problem Pseudotumor cerebri G93.2 Active 82998669 Problem History of DVT (deep vein thrombosis) Z86.718 Active 412838713 ALLERGIES No Information ENCOUNTERS Encounter Location Date Diagnosis [place] [address] [place] [id number] [address] [place] [address] 14 Nov, 2019 Encounter for screening labo ratory testing for COVID-19 virus Z11.59 [place] [address] [place] [id number] [address] [place] [address] Apr, long term (current) use of 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 Z79.01 [place] [id number] [facility] [id number] [address] [place] [address] Apr, halfway current use of ant icoagulant Z79.01 [place] [address] [address] [facility] [id number] [address] [place] [address] Apr, Cellulitis of unspecified pa rt of limb L03.119 ; Allergic contact dermatitis due to adhesives L23.1 and Chronic pain syndrome G89.4 [place] [address] [address] Apr, [facility] [address] [address] Apr, halfway current use of ant icoagulant Z79.01 ; Cellulitis of unspecified part of limb L03.119 ; Chronic pain syndrome G89.4 and Anxiety F41.9 [place] [address] [address] Apr, [facility] [address] [address] Apr, [place] [address] [address] Mar, [place] [address] [address] Mar, [place] [address] [address] Mar, Sore throat J02.9 ; Gastroes ophageal reflux disease without esophagitis K21.9 ; Pseudotumor cerebri G93.2 ; Chronic pain syndrome G89.4 ; Choriocarcinoma C58 ; History of pulmonary embolism Z86.711 ; History of DVT (deep vein thrombosis) Z86.718 ; Anxiety F41.9 and Tachycardia R00.0 [place] [address] [place] [id number] [address] [place] [address] Feb, Anxiety 300.00 and Chronic p ain 338.29 [facility] [address] [place] [id number] [address] [place] [address] Feb, [facility] [address] [address] Feb, [facility] [address] [place] [id number] [address] [place] [address] Jan, long term current use of ant icoagulant therapy V58.61 and Dysuria 788.1 [place] [address] [place] [id number] [address] [place] [address] Jan, Dysuria 788.1 [place] [address] [address] Jan, Anxiety 300.00 and Chronic p ain 338.29 [place] [address] [address] Jan, [place] [address] [address] Jan, [place] [address] [address] Jan, [place] [address] [address] Dec, Weakness 780.79 [place] [address] [address] Dec, long term current use of ant icoagulant therapy V58.[address] [address] Dec, Palpitations 785.1 ; Tremor 781.0 ; Weakness 780.79 ; halfway current use of anticoagulant therapy V58.61 and Yeast vaginitis 112.1 [place] [address] [place] [id number] [address] [place] [address] Dec, [place] [address] [address] Dec, Cervicalgia 723.1 ; Tachycar yoseph 785.0 ; Pseudotumor cerebri 348.2 and History of venous thromboembolism V12.51 [place] [address] [address] Nov, [place] [address] [place] [id number] [address] [place] [address] Nov, [place] [address] [place] [address] [place] [address] 24 Nov, 2014 Tachycardia 785.0 ; Pseudotu mor cerebri 348.2 ; Anxiety 300.00 and History of venous thromboembolism V12.51 [facility] [address] [id number] [address] [place] [address] 19 Nov, 2014 [facility] [address] [id number] [address] [place] [address] 18 Nov, 2014 [facility] [address] [id number] [address] [place] [address] 16 Nov, 2014 [facility] [address] [id number] [address] [place] [address] Nov, [facility] [address] [facility] [id number] [address] [place] [address] Nov, [facility] [address] [facility] [id number] [address] [place] [address] Nov, [facility] [address] [id number] [address] [place] [address] Nov, [facility] [address] [facility] [id number] [address] [place] [address] October, [facility] [address] [facility] [id number] [address] [place] [address] October, [facility] [address] [facility] [id number] [address] [place] [address] October, Pain in thoracic spine 724.1 and Tachycardia 785.0 [facility] [address] [id number] [address] [place] [address] October, [facility] [address] [facility] [id number] [address] [place] [address] October, [facility] [address] [facility] [id number] [address] [place] [address] 14 Sep, 2014 [facility] [address] [facility] [id number] [address] [place] [address] Sep, [facility] [address] [id number] [address] [place] [address], [place] [address] Aug, [facility] [address] [id number] [address] [place] [address], [place] [address] Aug, [facility] [address] [id number] [address] [place] [address], [place] [address] Aug, [facility] [address] [id number] [address] [place] [address], [place] [address] Aug, [facility] [address] [id number] [address] [place] [address], [place] [address] Aug, [facility] [address] [id number] [address] [place] [address], [place] [address] Aug, [facility] [address] [id number] [address] [place] [address], [place] [address] Aug, [facility] [address] [id number] [address] [place] [address], [place] [address] Aug, [facility] [address] [id number] [address] [place] [address], [place] [address] Aug, [facility] [address] [id number] [address] [place] [address], [place] [address] Aug, [facility] [address] [id number] [address] [place] [address], [place] [address] Aug, [facility] [address] [id number] [address] [place] [address], [place] [address] Aug, [facility] [address] [id number] [address] [place] [address], [place] [address] Jul, [facility] [address] [id number] [address] [place] [address], [place] [address] Jul, [facility] [address] [id number] [address] [place] [address], [place] [address] Jul, [facility] [address] [id number] [address] [place] [address], [place] [address] 23 Jul, 2014 [facility] [address] [id number] [address] [place] [address], [place] [address] 23 Jul, 2014 [facility] [address] [id number] [address] [place] [address], [place] [address] 23 Jul, 2014 [facility] [address] [id number] [address] [place] [address], [place] [address] 23 Jul, 2014 [facility] [address] [id number] [address] [place] [address], [place] [address] 23 Jul, 2014 [facility] [address] [id number] [address] [place] [address], [place] [address] 20 Jul, 2014 [facility] [address] [id number] [address] [place] [address], [place] [address] 20 Jul, 2014 [facility] [address] [id number] [address] [place] [address] 19 Jul, 2014 [facility] [address] [id number] [address] [place] [address], [place] [address] 19 Jul, 2014 [facility] [address] [id number] [address] [place] [address] 17 Jul, 2014 [facility] [address] [id number] [address] [place] [address] 17 Jul, 2014 [facility] [address] [id number] [address] [place] [address] 16 Jul, 2014 [facility] [address] [id number] [address] [place] [address], [place] [address] 16 Jul, 2014 [facility] [address] [id number] [address] [place] [address] 16 Jul, 2014 [facility] [address] [id number] [address] [place] [address] 16 Jul, 2014 [facility] [address] [id number] [address] [place] [address], [place] [address] 13 Jul, 2014 [facility] [address] [id number] [address] [place] [address], [place] [address] Jul, 2014 [facility] [address] [id number] [address] [place] [address], [place] [address] Jul, 2014 [facility] [address] [id number] [address] [place] [address], [place] [address] Jul, 2014 [facility] [address] [id number] [address] [place] [address], [place] [address] Jul, 2014 [facility] [address] [id number] [address] [place] [address], [place] [address] Jul, [facility] [address] [id number] [address] [place] [address], [place] [address] Jul, 2014 [facility] [address] [id number] [address] [place] [address], [place] [address] Jul, [facility] [address] [id number] [address] [place] [address], [place] [address] Jul, [facility] [address] [id number] [address] [place] [address], [place] [address] Jul, [facility] [address] [id number] [address] [place] [address] Jul, [facility] [address] [id number] [address] [place] [address] Jul, [facility] [address] [id number] [address] [place] [address], [place] [address] Jun, [facility] [address] [id number] [address] [place] [address] Jun, [facility] [address] [id number] [address] [place] [address] Jun, [facility] [address] [id number] [address] [place] [address] Jun, [facility] [address] [id number] [address] [place] [address], [place] [address] Jun, [facility] [address] [id number] [address] [place] [address], [place] [address] Jun, [facility] [address] [id number] [address] [place] [address], [place] [address] Jun, [facility] [address] [id number] [address] [place] [address], [place] [address] Jun, [facility] [address] [id number] [address] [place] [address], [place] [address] Jun, [facility] [address] [id number] [address] [place] [address], [place] [address] Jun, [facility] [address] [id number] [address] [place] [address], [place] [address] Jun, [facility] [address] [id number] [address] [place] [address], [place] [address] Jun, [facility] [address] [id number] [address] [place] [address], [place] [address] Jun, [facility] [address] [id number] [address] [place] [address], [place] [address] Jun, [facility] [address] [id number] [address] [place] [address], [place] [address] Jun, [facility] [address] [id number] [address] [place] [address], [place] [address] Jun, [facility] [address] [id number] [address] [place] [address], [place] [address] Jun, [facility] [address] [id number] [address] [place] [address], [place] [address] Jun, [facility] [address] [id number] [address] [place] [address], [place] [address] Jun, [facility] [address] [id number] [address] [place] [address], [place] [address] Jun, [facility] [address] [id number] [address] [place] [address], [place] [address] May, [facility] [address] [id number] [address] [place] [address], [place] [address] May, [facility] [address] [id number] [address] [place] [address], [place] [address] May, [facility] [address] [id number] [address] [place] [address], [place] [address] May, [facility] [address] [id number] [address] [place] [address], [place] [address] May, [facility] [address] [id number] [address] [place] [address], [place] [address] May, [facility] [address] [id number] [address] [place] [address], [place] [address] May, [facility] [address] [id number] [address] [place] [address], [place] [address] May, [facility] [address] [id number] [address] [place] [address], [place] [address] May, [facility] [address] [id number] [address] [place] [address], [place] [address] May, [facility] [address] [id number] [address] [place] [address], [place] [address] May, [facility] [address] [id number] [address] [place] [address], [place] [address] 18 May, 2014 [facility] [address] [id number] [address] [place] [address], [place] [address] 18 May, 2014 [facility] [address] [id number] [address] [place] [address], [place] [address] 17 May, 2014 [facility] [address] [id number] [address] [place] [address], [place] [address] 16 May, 2014 [facility] [address] [id number] [facility] [place] [address] 16 May, 2014 [facility] [address] [id number] [facility] [place] [address] 15 May, 2014 [facility] [address] [id number] [address] [place] [address], [place] [address] 15 May, 2014 [facility] [address] [id number] [address] [place] [address], [place] [address] May, [facility] [address] [id number] [address] [place] [address], [place] [address] May, [facility] [address] [id number] [address] [place] [address], [place] [address] May, [facility] [address] [id number] [address] [place] [address], [place] [address] May, [facility] [address] [id number] [address] [place] [address], [place] [address] May, [facility] [address] [id number] [address] [place] [address], [place] [address] May, [facility] [address] [id number] [address] [place] [address], [place] [address] May, [facility] [address] [id number] [address] [place] [address], [place] [address] May, [facility] [address] [id number] [address] [place] [address], [place] [address] May, [facility] [address] [id number] [address] [place] [address], [place] [address] May, [facility] [address] [id number] [address] [place] [address], [place] [address] May, [facility] [address] [id number] [address] [place] [address], [place] [address] May, [facility] [address] [id number] [address] [place] [address], [place] [address] 05 May, 2014 [facility] [address] [id number] [address] [place] [address], [place] [address] May, [facility] [address] [id number] [address] [place] [address], [place] [address] May, [facility] [address] [id number] [address] [place] [address], [place] [address] May, [facility] [address] [id number] [address] [place] [address], [place] [address] Apr, [facility] [address] [id number] [address] [place] [address], [place] [address] Apr, [facility] [address] [id number] [address] [place] [address], [place] [address] Apr, [facility] [address] [id number] [address] [place] [address], [place] [address] Apr, [facility] [address] [id number] [address] [place] [address], [place] [address] Apr, [facility] [address] [id number] [address] [place] [address], [place] [address] Apr, [facility] [address] [id number] [address] [place] [address], [place] [address] Apr, [facility] [address] [id number] [address] [place] [address], [place] [address] Apr, [facility] [address] [id number] [address] [place] [address], [place] [address] Apr, [facility] [address] [id number] [address] [place] [address], [place] [address] Apr, [facility] [address] [id number] [address] [place] [address], [place] [address] Mar, [facility] [address] [id number] [address] [place] [address], [place] [address] Mar, [facility] [address] [id number] [address] [place] [address], [place] [address] 31 Mar, 2013 [facility] [address] [id number] [address] [place] [address], [place] [address] Mar, 2013 [facility] [address] [id number] [address] [place] [address], [place] [address] 30 Mar, 2014 [facility] [address] [id number] [address] [place] [address], [place] [address] 30 Mar, 2014 [facility] [address] [id number] [address] [place] [address], [place] [address] Mar, [facility] [address] [id number] [address] [place] [address], [place] [address] Mar, [facility] [address] [id number] [address] [place] [address], [place] [address] Mar, [facility] [address] [id number] [address] [place] [address], [place] [address] Mar, [facility] [address] [id number] [address] [place] [address], [place] [address] Mar, [facility] [address] [id number] [address] [place] [address], [place] [address] Mar, [facility] [address] [id number] [address] [place] [address], [place] [address] Mar, [facility] [address] [id number] [address] [place] [address], [place] [address] Mar, [facility] [address] [id number] [address] [place] [address], [place] [address] Mar, [facility] [address] [id number] [address] [place] [address], [place] [address] Mar, [facility] [address] [id number] [address] [place] [address], [place] [address] Mar, [facility] [address] [id number] [address] [place] [address] Mar, [facility] [address] [id number] [address] [place] [address], [place] [address] Mar, [facility] [address] [id number] [address] [place] [address], [place] [address] Mar, [facility] [address] [id number] [address] [place] [address], [place] [address] 05 Sep, 2013 [facility] [address] [id number] [address] [place] [address], [place] [address] 05 Sep, 2013 [facility] [address] [id number] [address] [place] [address], [place] [address] 04 Feb, 2013 [facility] [address] [id number] [address] [place] [address], [place] [address] 04 Feb, 2013 [facility] [address] [id number] [address] [place] [address], [place] [address] Feb, 2013 [facility] [address] [id number] [address] [place] [address], [place] [address] Feb, 2013 [facility] [address] [id number] [address] [place] [address], [place] [address] Feb, 2013 [facility] [address] [id number] [address] [place] [address], [place] [address] Feb, 2013 [facility] [address] [id number] [address] [place] [address], [place] [address] Feb, 2013 [facility] [address] [id number] [address] [place] [address], [place] [address] Feb, 2013 [facility] [address] [id number] [address] [place] [address], [place] [address] Jan, [facility] [address] [id number] [address] [place] [address], [place] [address] Jan, [facility] [address] [id number] [address] [place] [address], [place] [address] Jan, [facility] [address] [id number] [facility] [place] [address] Jan, [facility] [address] [id number] [facility] [place] [address] Jan, [facility] [address] [id number] [facility] [place] [address] Jan, [facility] [address] [id number] [address] [place] [address], [place] [address] Jan, [facility] [address] [id number] [address] [place] [address], [place] [address] Jan, [facility] [address] [id number] [address] [place] [address], [place] [address] Jan, [facility] [address] [id number] [address] [place] [address], [place] [address] Jan, [facility] [address] [id number] [address] [place] [address], [place] [address] Jan, [facility] [address] [id number] [address] [place] [address], [place] [address] Jan, [facility] [address] [id number] [address] [place] [address], [place] [address] Dec, [facility] [address] [id number] [address] [place] [address], [place] [address] Dec, [facility] [address] [id number] [address] [place] [address], [place] [address] Dec, [facility] [address] [id number] [address] [place] [address], [place] [address] Dec, [facility] [address] [id number] [address] [place] [address], [place] [address] Dec, [facility] [address] [id number] [address] [place] [address], [place] [address] Dec, [facility] [facility] [address] [id number] [address] [place] [address], [place] [address] Dec, [facility] [address] [id number] [address] [place] [address], [place] [address] Dec, 2013 [facility] [address] [id number] [address] [place] [address], [place] [address] Dec, [facility] [address] [id number] [address] [place] [address], [place] [address] Dec, [facility] [address] [id number] [address] [place] [address], [place] [address] Dec, [facility] [address] [id number] [address] [place] [address], [place] [address] Dec, [facility] [address] [id number] [address] [place] [address], [place] [address] Nov, [facility] [address] [id number] [address] [place] [address], [place] [address] Nov, [facility] [address] [id number] [address] [place] [address], [place] [address] Nov, [facility] [address] [id number] [address] [place] [address], [place] [address] Nov, [facility] [address] [id number] [address] [place] [address], [place] [address] Nov, [facility] [address] [id number] [address] [place] [address], [place] [address] Nov, [facility] [address] [id number] [address] [place] [address], [place] [address] Nov, [facility] [address] [id number] [address] [place] [address], [place] [address] Nov, [facility] [address] [id number] [address] [place] [address], [place] [address] Nov, [facility] [address] [id number] [address] [place] [address], [place] [address] Nov, [facility] [address] [id number] [address] [place] [address], [place] [address] Nov, [facility] [address] [id number] [address] [place] [address], [place] [address] Nov, [facility] [address] [id number] [address] [place] [address], [place] [address] Nov, [facility] [address] [id number] [address] [place] [address], [place] [address] Nov, [facility] [address] [id number] [address] [place] [address], [place] [address] October, [facility] [address] [id number] [address] [place] [address], [place] [address] October, [facility] [address] [id number] [address] [place] [address], [place] [address] October, [facility] [address] [id number] [address] [place] [address], [place] [address] October, [facility] [address] [id number] [address] [place] [address], [place] [address] October, [facility] [address] [id number] [address] [place] [address], [place] [address] October, [facility] [address] [id number] [address] [place] [address], [place] [address] October, [facility] [address] [id number] [address] [place] [address], [place] [address] October, [facility] [address] [id number] [address] [place] [address], [place] [address] October, [facility] [address] [id number] [address] [place] [address], [place] [address] October, [facility] [address] [id number] [address] [place] [address], [place] [address] October, [facility] [address] [id number] [address] [place] [address], [place] [address] October, [facility] [address] [id number] [facility] [place] [address] Sep, [facility] [address] [id number] [facility] [place] [address] Sep, [facility] [address] [id number] [facility] [place] [address] Sep, [facility] [address] [id number] [address] [place] [address], [place] [address] Sep, [facility] [address] [id number] [address] [place] [address], [place] [address] Sep, [facility] [address] [id number] [address] [place] [address], [place] [address] Sep, [facility] [address] [id number] [address] [place] [address], [place] [address] Aug, [facility] [address] [id number] [address] [place] [address], [place] [address] Aug, [facility] [address] [id number] [address] [place] [address], [place] [address] Aug, [facility] [address] [id number] [address] [place] [address], [place] [address] Aug, [facility] [address] [id number] [address] [place] [address], [place] [address] Aug, [facility] [address] [id number] [address] [place] [address], [place] [address] Aug, [facility] [address] [id number] [address] [place] [address], [place] [address] Jul, [facility] [address] [id number] [address] [place] [address], [place] [address] Jul, [facility] [address] [id number] [address] [place] [address], [place] [address] Jul, [facility] [address] [id number] [address] [place] [address], [place] [address] Jul, [facility] [address] [id number] [address] [place] [address], [place] [address] Jul, [facility] [address] [id number] [address] [place] [address], [place] [address] Jul, [facility] [address] [id number] [address] [place] [address], [place] [address] Jul, [facility] [address] [id number] [address] [place] [address], [place] [address] Jul, [facility] [address] [id number] [address] [place] [address], [place] [address] Jul, [facility] [address] [id number] [address] [place] [address], [place] [address] Jul, [facility] [address] [id number] [address] [place] [address], [place] [address] Jun, [facility] [address] [id number] [address] [place] [address], [place] [address] Jun, [facility] [address] [id number] [address] [place] [address], [place] [address] Jun, [facility] [address] [id number] [address] [place] [address], [place] [address] Jun, [facility] [address] [id number] [address] [place] [address], [place] [address] Jun, [facility] [address] [id number] [address] [place] [address], [place] [address] Jun, [facility] [address] [id number] [address] [place] [address], [place] [address] Jun, [facility] [address] [id number] [address] [place] [address], [place] [address] Jun, [facility] [address] [id number] [address] [place] [address], [place] [address] May, [facility] [address] [id number] [address] [place] [address], [place] [address] May, [facility] [address] [id number] [address] [place] [address], [place] [address] May, [facility] [address] [id number] [address] [place] [address], [place] [address] May, [facility] [address] [id number] [address] [place] [address], [place] [address] May, [facility] [address] [id number] [address] [place] [address], [place] [address] May, [facility] [address] [id number] [address] [place] [address], [place] [address] May, [facility] [address] [id number] [address] [place] [address], [place] [address] May, [facility] [address] [id number] [address] [place] [address], [place] [address] Apr, [facility] [address] [id number] [address] [place] [address], [place] [address] Apr, [facility] [address] [id number] [address] [place] [address], [place] [address] Apr, [facility] [address] [id number] [address] [place] [address], [place] [address] Apr, [facility] [address] [id number] [address] [place] [address], [place] [address] Apr, [facility] [address] [id number] [address] [place] [address], [place] [address] Apr, [facility] [address] [id number] [address] [place] [address], [place] [address] Mar, [facility] [address] [id number] [address] [place] [address], [place] [address] Mar, [facility] [address] [id number] [address] [place] [address], [place] [address] Mar, [facility] [address] [id number] [address] [place] [address], [place] [address] Mar, [facility] [address] [id number] [address] [place] [address], [place] [address] Mar, [facility] [address] [id number] [address] [place] [address], [place] [address] Mar, [facility] [address] [id number] [address] [place] [address], [place] [address] Mar, [facility] [address] [id number] [address] [place] [address], [place] [address] 30 Feb, 2013 [facility] [address] [id number] [address] [place] [address], [place] [address] 30 Feb, 2013 [facility] [address] [id number] [address] [place] [address], [place] [address] Feb, [facility] [address] [id number] [address] [place] [address], [place] [address] Feb, [facility] [address] [id number] [address] [place] [address], [place] [address] Feb, [facility] [address] [id number] [address] [place] [address], [place] [address] Feb, [facility] [address] [id number] [address] [place] [address], [place] [address] Jan, [facility] [address] [id number] [address] [place] [address], [place] [address] Jan, [facility] [address] [id number] [address] [place] [address], [place] [address] Jan, [facility] [address] [id number] [address] [place] [address], [place] [address] Jan, [facility] [address] [id number] [address] [place] [address], [place] [address] Jan, [facility] [address] [id number] [address] [place] [address], [place] [address] Jan, [facility] [address] [id number] [address] [place] [address], [place] [address] Jan, [facility] [address] [id number] [address] [place] [address], [place] [address] Jan, [facility] [address] [id number] [address] [place] [address], [place] [address] Jan, [facility] [address] [id number] [address] [place] [address], [place] [address] Dec, [facility] [address] [id number] [address] [place] [address], [place] [address] Dec, [facility] [address] [id number] [address] [place] [address], [place] [address] Dec, [facility] [address] [id number] [address] [place] [address], [place] [address] Dec, [facility] [address] [id number] [address] [place] [address], [place] [address] Dec, [facility] [address] [id number] [address] [place] [address], [place] [address] Dec, [facility] [address] [id number] [address] [place] [address], [place] [address] Dec, [facility] [address] [id number] [address] [place] [address], [place] [address] Dec, [facility] [address] [id number] [address] [place] [address], [place] [address] Dec, [facility] [address] [id number] [address] [place] [address], [place] [address] Dec, [facility] [address] [id number] [address] [place] [address], [place] [address] Dec, [facility] [address] [id number] [address] [place] [address], [place] [address] Dec, [facility] [address] [id number] [address] [place] [address], [place] [address] Dec, [facility] [address] [id number] [address] [place] [address], [place] [address] Nov, [facility] [address] [id number] [address] [place] [address], [place] [address] Nov, [facility] [address] [id number] [address] [place] [address], [place] [address] Nov, [facility] [address] [id number] [address] [place] [address], [place] [address] Nov, [facility] [address] [id number] [address] [place] [address], [place] [address] October, [facility] [address] [id number] [address] [place] [address], [place] [address] October, [facility] [address] [id number] [address] [place] [address], [place] [address] October, [facility] [address] [id number] [address] [place] [address], [place] [address] October, [facility] [address] [id number] [address] [place] [address], [place] [address] October, [facility] [address] [id number] [address] [place] [address], [place] [address] October, [facility] [address] [id number] [address] [place] [address], [place] [address] Sep, [facility] [address] [id number] [address] [place] [address], [place] [address] Sep, [facility] [address] [id number] [address] [place] [address], [place] [address] Sep, [facility] [address] [id number] [address] [place] [address], [place] [address] Sep, [facility] [address] [id number] [address] [place] [address], [place] [address] 19 Sep, 2012 [facility] [address] [id number] [address] [place] [address], [place] [address] 16 Sep, 2012 [facility] [address] [id number] [address] [place] [address], [place] [address] Sep, [facility] [address] [id number] [address] [place] [address], [place] [address] Sep, [facility] [address] [id number] [address] [place] [address], [place] [address] Sep, [facility] [address] [id number] [address] [place] [address], [place] [address] Sep, [facility] [address] [id number] [address] [place] [address], [place] [address] Sep, [facility] [address] [id number] [address] [place] [address], [place] [address] Aug, [facility] [address] [id number] [address] [place] [address], [place] [address] Aug, [facility] [address] [id number] [address] [place] [address], [place] [address] 25 Aug, 2012 [facility] [address] [id number] [address] [place] [address], [place] [address] Aug, [facility] [address] [id number] [address] [place] [address], [place] [address] 19 Aug, 2012 [facility] [address] [id number] [address] [place] [address], [place] [address] 18 Aug, 2012 [facility] [address] [id number] [address] [place] [address], [place] [address] 17 Aug, 2012 [facility] [address] [id number] [address] [place] [address], [place] [address] 15 Aug, 2012 [facility] [address] [id number] [address] [place] [address], [place] [address] 15 Aug, 2012 [facility] [address] [id number] [address] [place] [address], [place] [address] Aug, [facility] [address] [id number] [address] [place] [address], [place] [address] Aug, [facility] [address] [id number] [address] [place] [address], [place] [address] Aug, [facility] [address] [id number] [address] [place] [address], [place] [address] Jul, [facility] [address] [id number] [address] [place] [address], [place] [address] Jul, [facility] [address] [id number] [address] [place] [address], [place] [address] Jul, [facility] [address] [id number] [address] [place] [address], [place] [address] Jul, [facility] [address] [id number] [address] [place] [address], [place] [address] Jul, [facility] [address] [id number] [address] [place] [address], [place] [address] Jul, [facility] [address] [id number] [address] [place] [address], [place] [address] Jul, [facility] [address] [id number] [address] [place] [address], [place] [address] Jul, [facility] [address] [id number] [address] [place] [address], [place] [address] Jul, [facility] [address] [id number] [address] [place] [address], [place] [address] Jul, [facility] [address] [id number] [address] [place] [address], [place] [address] May, [facility] [address] [id number] [id number] May, [facility] [address] [id number] [address] [address] May, [facility] [address] [id number] [address] [place] [id number] May, [facility] [address] [id number] [address] [place] [id number] May, [facility] [address] [id number] [address] [place] [id number] Apr, [facility] [address] [id number] [place] [id number] Apr, [facility] [address] [id number] [address] [place] [id number] Apr, [facility] [address] [id number] [address] [place] [id number] Mar, [facility] [address] [id number] [place] [id number] Mar, [facility] [address] [id number] [address] [place] [id number] Mar, [facility] [address] [id number] [place] [id number] Feb, [facility] [address] [id number] [address] [place] [id number] Feb, [facility] [address] [id number] [address] [place] [id number] Feb, [facility] [address] [id number] [place] [id number] Feb, [facility] [address] [id number] [place] [id number] Feb, [facility] [place] [address] [id number] [place] [id number] Jan, [facility] [address] [id number] [address] [place] [id number] Jan, [facility] [address] [id number] [place] [id number] Jan, [facility] [address] [id number] [place] [id number] Jan, [facility] [address] [id number] [place] [id number] Jan, [facility] [address] [facility] [id number] [address] [address] Jan, [facility] [address] [facility] [id number] [address] [place] [id number] Jan, [facility] [address] [facility] [id number] [address] [place] [id number] Aug, [facility] [address] [id number] [place] [id number] Aug, [facility] [address] [facility] [id number] [address] [place] [id number] Jul, [facility] [address] [facility] [id number] [address] [place] [id number] Jul, [facility] [address] [facility] [id number] [address] [place] [id number] Jul, [facility] [address] [id number] [place] [id number] Jul, 2011 [facility] [address] [facility] [id number] [address] [place] [id number] Jul, [facility] [address] [id number] [place] [id number] Jul, [facility] [address] [facility] [id number] [address] [place] [id number] Jul, [facility] [address] [id number] [place] [id number] Jul, [facility] [address] [id number] [place] [id number] Jul, [facility] [address] [id number] [place] [id number] Jul, [facility] [address] [facility] [id number] [address] [place] [id number] May, [facility] [address] [id number] [address] [place] [id number] May, [facility] [address] [id number] [address] [place] [id number] May, [facility] [address] [id number] [address] [place] [id number] Apr, [facility] [address] [id number] [address] [place] [id number] Jan, [facility] [address] [id number] [address] [place] [id number] Jan, [facility] [address] [id number] [address] [place] [id number] Dec, [facility] [address] [id number] [address] [place] [id number] Dec, [facility] [address] [id number] [address] [place] [id number] May, [facility] [address] [id number] [address] [place] [id number] Mar, [facility] [address] [id number] [address] [place] [id number] Mar, [facility] [address] [id number] [address] [place] [id number] 14 Jan, 2009 IMMUNIZATIONS No Known Immunizations [...]
--- OUTSIDE RECORDS SUMMARY | 2020-01-28 13:10 | XMS REPORT ---
Author Author Heydi Candelario Doctor Organization [facility] Address Unknown Phone Unavailable Care Team Providers Care Manager Public Name Role Phone Migration, Doctor Unavailable Unavailable PROBLEMS Type Condition ICD9-CM Code [id number] Code Onset Dates Condition S tatus SNOMED Code Problem Chronic pain syndrome G89.4 Active 618866106 Problem Sore throat J02.9 Active 10940090 3 Problem Choriocarcinoma C58 Active 1881 38904 Problem care home current use of anticoagulant Z79.01 Active 869112783 Problem History of venous thromboembolism V12.51 Active 223322343 Problem Cellulitis of unspecified part of limb L03.119 Active 532470272 Problem Gastroesophageal reflux disease without esophagitis K21.9 Active 791264416 Problem History of pulmonary embolism Z86.711 Active 124299005 Problem Pseudotumor cerebri G93.2 Active 87551009 Problem History of DVT (deep vein thrombosis) Z86.718 Active [id number] ALLERGIES No Information ENCOUNTERS Encounter Location Date Diagnosis [place] [address] [place] [id number] [address] [place] [address] 14 Nov, 2019 Encounter for screening labo ratory testing for COVID-19 virus Z11.59 [place] [address] [place] [id number] [address] [place] [address] Apr, 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 [place] [address] [facility] [id number] [address] [place] [address] Apr, care home current use of ant icoagulant Z79.01 [place] [address] [facility] [id number] [address] [place] [address] Apr, Cellulitis of unspecified pa rt of limb L03.119 ; Allergic contact dermatitis due to adhesives L23.1 and Chronic pain syndrome G89.4 [place] [address] [address] Apr, [facility] [address] [address] Apr, care home current use of ant icoagulant Z79.01 ; Cellulitis of unspecified part of limb L03.119 ; Chronic pain syndrome G89.4 and Anxiety F41.9 [place] [address] [address] Apr, [facility] [address] [address] Apr, [place] [address] [address] Mar, [place] [address] [address] Mar, [place] [address] [address] Mar, Sore throat J02.9 ; Gastroes ophageal reflux disease without esophagitis K21.9 ; Pseudotumor cerebri G93.2 ; Chronic pain syndrome G89.4 ; Choriocarcinoma C58 ; History of pulmonary embolism Z86.711 ; History of DVT (deep vein thrombosis) Z86.718 ; Anxiety F41.9 and Tachycardia R00.0 [place] [address] [place] [id number] [address] [place] [address] Feb, Anxiety 300.00 and Chronic p ain 338.29 [facility] [address] [place] [id number] [address] [place] [address] Feb, [facility] [address] [address] Feb, [facility] [address] [place] [id number] [address] [place] [address] Jan, 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 and Dysuria 788.1 [place] [address] [place] [id number] [address] [place] [address] Jan, Dysuria 788.1 [place] [address] [address] Jan, Anxiety 300.00 and Chronic p ain 338.29 [place] [address] [address] Jan, [place] [address] [address] Jan, [place] [address] [address] Jan, [place] [address] [address] Dec, Weakness 780.79 [place] [address] [address] Dec, 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 [address] Dec, Palpitations 785.1 ; Tremor 781.0 ; Weakness 780.79 ; care home current use of anticoagulant therapy V58.61 and Yeast vaginitis 112.1 [place] [address] [place] [id number] [address] [place] [address] Dec, [place] [address] [address] Dec, Cervicalgia 723.1 ; Tachycar yoseph 785.0 ; Pseudotumor cerebri 348.2 and History of venous thromboembolism V12.51 [place] [address] [address] Nov, [place] [address] [place] [id number] [address] [place] [address] Nov, [place] [address] [place] [id number] [place] [address] 24 Nov, 2014 Tachycardia 785.0 ; Pseudotu mor cerebri 348.2 ; Anxiety 300.00 and History of venous thromboembolism V12.51 [facility] [address] [id number] [address] [place] [address] 19 Nov, 2014 [facility] [address] [id number] [address] [place] [address] 18 Nov, 2014 [facility] [address] [id number] [address] [place] [address] 16 Nov, 2014 [facility] [address] [id number] [address] [place] [address] Nov, [facility] [address] [facility] [id number] [address] [place] [address] Nov, [facility] [address] [facility] [id number] [address] [place] [address] Nov, [facility] [address] [id number] [address] [place] [address] Nov, [facility] [address] [facility] [id number] [address] [place] [address] October, [facility] [address] [facility] [id number] [address] [place] [address] October, [facility] [address] [facility] [id number] [address] [place] [address] October, Pain in thoracic spine 724.1 and Tachycardia 785.0 [facility] [address] [id number] [address] [place] [address] October, [facility] [address] [facility] [id number] [address] [place] [address] October, [facility] [address] [facility] [id number] [address] [place] [address] 14 Sep, 2014 [facility] [address] [facility] [id number] [address] [place] [address] Sep, [facility] [address] [id number] [address] [place] [address], [place] [address] Aug, [facility] [address] [id number] [address] [place] [address], [place] [address] Aug, [facility] [address] [id number] [address] [place] [address], [place] [address] Aug, [facility] [address] [id number] [address] [place] [address], [place] [address] Aug, [facility] [address] [id number] [address] [place] [address], [place] [address] Aug, [facility] [address] [id number] [address] [place] [address], [place] [address] Aug, [facility] [address] [id number] [address] [place] [address], [place] [address] Aug, [facility] [address] [id number] [address] [place] [address], [place] [address] Aug, [facility] [address] [id number] [address] [place] [address], [place] [address] Aug, [facility] [address] [id number] [address] [place] [address], [place] [address] Aug, [facility] [address] [id number] [address] [place] [address], [place] [address] Aug, [facility] [address] [id number] [address] [place] [address], [place] [address] Aug, [facility] [address] [id number] [address] [place] [address], [place] [address] Jul, [facility] [address] [id number] [address] [place] [address], [place] [address] Jul, [facility] [address] [id number] [address] [place] [address], [place] [address] Jul, [facility] [address] [id number] [address] [place] [address], [place] [address] 23 Jul, 2014 [facility] [address] [id number] [address] [place] [address], [place] [address] 23 Jul, 2014 [facility] [address] [id number] [address] [place] [address], [place] [address] 23 Jul, 2014 [facility] [address] [id number] [address] [place] [address], [place] [address] 23 Jul, 2014 [facility] [address] [id number] [address] [place] [address], [place] [address] 23 Jul, 2014 [facility] [address] [id number] [address] [place] [address], [place] [address] 20 Jul, 2014 [facility] [address] [id number] [address] [place] [address], [place] [address] 20 Jul, 2014 [facility] [address] [id number] [address] [place] [address] 19 Jul, 2014 [facility] [address] [id number] [address] [place] [address], [place] [address] 19 Jul, 2014 [facility] [address] [id number] [address] [place] [address] 17 Jul, 2014 [facility] [address] [id number] [address] [place] [address] 17 Jul, 2014 [facility] [address] [id number] [address] [place] [address] 16 Jul, 2014 [facility] [address] [id number] [address] [place] [address], [place] [address] 16 Jul, 2014 [facility] [address] [id number] [address] [place] [address] 16 Jul, 2014 [facility] [address] [id number] [address] [place] [address] 16 Jul, 2014 [facility] [address] [id number] [address] [place] [address], [place] [address] 13 Jul, 2014 [facility] [address] [id number] [address] [place] [address], [place] [address] Jul, 2014 [facility] [address] [id number] [address] [place] [address], [place] [address] Jul, 2014 [facility] [address] [id number] [address] [place] [address], [place] [address] Jul, 2014 [facility] [address] [id number] [address] [place] [address], [place] [address] Jul, 2014 [facility] [address] [id number] [address] [place] [address], [place] [address] Jul, [facility] [address] [id number] [address] [place] [address], [place] [address] Jul, 2014 [facility] [address] [id number] [address] [place] [address], [place] [address] Jul, [facility] [address] [id number] [address] [place] [address], [place] [address] Jul, [facility] [address] [id number] [address] [place] [address], [place] [address] Jul, [facility] [address] [id number] [address] [place] [address] Jul, [facility] [address] [id number] [address] [place] [address] Jul, [facility] [address] [id number] [address] [place] [address], [place] [address] Jun, [facility] [address] [id number] [address] [place] [address] Jun, [facility] [address] [id number] [address] [place] [address] Jun, [facility] [address] [id number] [address] [place] [address] Jun, [facility] [address] [id number] [address] [place] [address], [place] [address] Jun, [facility] [address] [id number] [address] [place] [address], [place] [address] Jun, [facility] [address] [id number] [address] [place] [address], [place] [address] Jun, [facility] [address] [id number] [address] [place] [address], [place] [address] Jun, [facility] [address] [id number] [address] [place] [address], [place] [address] Jun, [facility] [address] [id number] [address] [place] [address], [place] [address] Jun, [facility] [address] [id number] [address] [place] [address], [place] [address] Jun, [facility] [address] [id number] [address] [place] [address], [place] [address] Jun, [facility] [address] [id number] [address] [place] [address], [place] [address] Jun, [facility] [address] [id number] [address] [place] [address], [place] [address] Jun, [facility] [address] [id number] [address] [place] [address], [place] [address] Jun, [facility] [address] [id number] [address] [place] [address], [place] [address] Jun, [facility] [address] [id number] [address] [place] [address], [place] [address] Jun, [facility] [address] [id number] [address] [place] [address], [place] [address] Jun, [facility] [address] [id number] [address] [place] [address], [place] [address] Jun, [facility] [address] [id number] [address] [place] [address], [place] [address] Jun, [facility] [address] [id number] [address] [place] [address], [place] [address] May, [facility] [address] [id number] [address] [place] [address], [place] [address] May, [facility] [address] [id number] [address] [place] [address], [place] [address] May, [facility] [address] [id number] [address] [place] [address], [place] [address] May, [facility] [address] [id number] [address] [place] [address], [place] [address] May, [facility] [address] [id number] [address] [place] [address], [place] [address] May, [facility] [address] [id number] [address] [place] [address], [place] [address] May, [facility] [address] [id number] [address] [place] [address], [place] [address] May, [facility] [address] [id number] [address] [place] [address], [place] [address] May, [facility] [address] [id number] [address] [place] [address], [place] [address] May, [facility] [address] [id number] [address] [place] [address], [place] [address] May, [facility] [address] [id number] [address] [place] [address], [place] [address] 18 May, 2014 [facility] [address] [id number] [address] [place] [address], [place] [address] 18 May, 2014 [facility] [address] [id number] [address] [place] [address], [place] [address] 17 May, 2014 [facility] [address] [id number] [address] [place] [address], [place] [address] 16 May, 2014 [facility] [address] [id number] [facility] [place] [address] 16 May, 2014 [facility] [address] [id number] [facility] [place] [address] 15 May, 2014 [facility] [address] [id number] [address] [place] [address], [place] [address] 15 May, 2014 [facility] [address] [id number] [address] [place] [address], [place] [address] May, [facility] [address] [id number] [address] [place] [address], [place] [address] May, [facility] [address] [id number] [address] [place] [address], [place] [address] May, [facility] [address] [id number] [address] [place] [address], [place] [address] May, [facility] [address] [id number] [address] [place] [address], [place] [address] May, [facility] [address] [id number] [address] [place] [address], [place] [address] May, [facility] [address] [id number] [address] [place] [address], [place] [address] May, [facility] [address] [id number] [address] [place] [address], [place] [address] May, [facility] [address] [id number] [address] [place] [address], [place] [address] May, [facility] [address] [id number] [address] [place] [address], [place] [address] May, [facility] [address] [id number] [address] [place] [address], [place] [address] May, [facility] [address] [id number] [address] [place] [address], [place] [address] May, [facility] [address] [id number] [address] [place] [address], [place] [address] 05 May, 2014 [facility] [address] [id number] [address] [place] [address], [place] [address] May, [facility] [address] [id number] [address] [place] [address], [place] [address] May, [facility] [address] [id number] [address] [place] [address], [place] [address] May, [facility] [address] [id number] [address] [place] [address], [place] [address] Apr, [facility] [address] [id number] [address] [place] [address], [place] [address] Apr, [facility] [address] [id number] [address] [place] [address], [place] [address] Apr, [facility] [address] [id number] [address] [place] [address], [place] [address] Apr, [facility] [address] [id number] [address] [place] [address], [place] [address] Apr, [facility] [address] [id number] [address] [place] [address], [place] [address] Apr, [facility] [address] [id number] [address] [place] [address], [place] [address] Apr, [facility] [address] [id number] [address] [place] [address], [place] [address] Apr, [facility] [address] [id number] [address] [place] [address], [place] [address] Apr, [facility] [address] [id number] [address] [place] [address], [place] [address] Apr, [facility] [address] [id number] [address] [place] [address], [place] [address] Mar, [facility] [address] [id number] [address] [place] [address], [place] [address] Mar, [facility] [address] [id number] [address] [place] [address], [place] [address] 31 Mar, 2013 [facility] [address] [id number] [address] [place] [address], [place] [address] Mar, 2013 [facility] [address] [id number] [address] [place] [address], [place] [address] 30 Mar, 2014 [facility] [address] [id number] [address] [place] [address], [place] [address] 30 Mar, 2014 [facility] [address] [id number] [address] [place] [address], [place] [address] Mar, [facility] [address] [id number] [address] [place] [address], [place] [address] Mar, [facility] [address] [id number] [address] [place] [address], [place] [address] Mar, [facility] [address] [id number] [address] [place] [address], [place] [address] Mar, [facility] [address] [id number] [address] [place] [address], [place] [address] Mar, [facility] [address] [id number] [address] [place] [address], [place] [address] Mar, [facility] [address] [id number] [address] [place] [address], [place] [address] Mar, [facility] [address] [id number] [address] [place] [address], [place] [address] Mar, [facility] [address] [id number] [address] [place] [address], [place] [address] Mar, [facility] [address] [id number] [address] [place] [address], [place] [address] Mar, [facility] [address] [id number] [address] [place] [address], [place] [address] Mar, [facility] [address] [id number] [address] [place] [address] Mar, [facility] [address] [id number] [address] [place] [address], [place] [address] Mar, [facility] [address] [id number] [address] [place] [address], [place] [address] Mar, [facility] [address] [id number] [address] [place] [address], [place] [address] 05 Sep, 2013 [facility] [address] [id number] [address] [place] [address], [place] [address] 05 Sep, 2013 [facility] [address] [id number] [address] [place] [address], [place] [address] 04 Feb, 2013 [facility] [address] [id number] [address] [place] [address], [place] [address] 04 Feb, 2013 [facility] [address] [id number] [address] [place] [address], [place] [address] Feb, 2013 [facility] [address] [id number] [address] [place] [address], [place] [address] Feb, 2013 [facility] [address] [id number] [address] [place] [address], [place] [address] Feb, 2013 [facility] [address] [id number] [address] [place] [address], [place] [address] Feb, 2013 [facility] [address] [id number] [address] [place] [address], [place] [address] Feb, 2013 [facility] [address] [id number] [address] [place] [address], [place] [address] Feb, 2013 [facility] [address] [id number] [address] [place] [address], [place] [address] Jan, [facility] [address] [id number] [address] [place] [address], [place] [address] Jan, [facility] [address] [id number] [address] [place] [address], [place] [address] Jan, [facility] [address] [id number] [facility] [place] [address] Jan, [facility] [address] [id number] [facility] [place] [address] Jan, [facility] [address] [id number] [facility] [place] [address] Jan, [facility] [address] [id number] [address] [place] [address], [place] [address] Jan, [facility] [address] [id number] [address] [place] [address], [place] [address] Jan, [facility] [address] [id number] [address] [place] [address], [place] [address] Jan, [facility] [address] [id number] [address] [place] [address], [place] [address] Jan, [facility] [address] [id number] [address] [place] [address], [place] [address] Jan, [facility] [address] [id number] [address] [place] [address], [place] [address] Jan, [facility] [address] [id number] [address] [place] [address], [place] [address] Dec, [facility] [address] [id number] [address] [place] [address], [place] [address] Dec, [facility] [address] [id number] [address] [place] [address], [place] [address] Dec, [facility] [address] [id number] [address] [place] [address], [place] [address] Dec, [facility] [address] [id number] [address] [place] [address], [place] [address] Dec, [facility] [address] [id number] [address] [place] [address], [place] [address] Dec, [facility] [address] [id number] [address] [place] [address], [place] [address] Dec, [facility] [address] [id number] [address] [place] [address], [place] [address] Dec, 2013 [facility] [address] [id number] [address] [place] [address], [place] [address] Dec, [facility] [address] [id number] [address] [place] [address], [place] [address] Dec, [facility] [address] [id number] [address] [place] [address], [place] [address] Dec, [facility] [address] [id number] [address] [place] [address], [place] [address] Dec, [facility] [address] [id number] [address] [place] [address], [place] [address] Nov, [facility] [address] [id number] [address] [place] [address], [place] [address] Nov, [facility] [address] [id number] [address] [place] [address], [place] [address] Nov, [facility] [address] [id number] [address] [place] [address], [place] [address] Nov, [facility] [address] [id number] [address] [place] [address], [place] [address] Nov, [facility] [address] [id number] [address] [place] [address], [place] [address] Nov, [facility] [address] [id number] [address] [place] [address], [place] [address] Nov, [facility] [address] [id number] [address] [place] [address], [place] [address] Nov, [facility] [address] [id number] [address] [place] [address], [place] [address] Nov, [facility] [address] [id number] [address] [place] [address], [place] [address] Nov, [facility] [address] [id number] [address] [place] [address], [place] [address] Nov, [facility] [address] [id number] [address] [place] [address], [place] [address] Nov, [facility] [address] [id number] [address] [place] [address], [place] [address] Nov, [facility] [address] [id number] [address] [place] [address], [place] [address] Nov, [facility] [address] [id number] [address] [place] [address], [place] [address] October, [facility] [address] [id number] [address] [place] [address], [place] [address] October, [facility] [address] [id number] [address] [place] [address], [place] [address] October, [facility] [address] [id number] [address] [place] [address], [place] [address] October, [facility] [address] [id number] [address] [place] [address], [place] [address] October, [facility] [address] [id number] [address] [place] [address], [place] [address] October, [facility] [address] [id number] [address] [place] [address], [place] [address] October, [facility] [address] [id number] [address] [place] [address], [place] [address] October, [facility] [address] [id number] [address] [place] [address], [place] [address] October, [facility] [address] [id number] [address] [place] [address], [place] [address] October, [facility] [address] [id number] [address] [place] [address], [place] [address] October, [facility] [address] [id number] [address] [place] [address], [place] [address] October, [facility] [address] [id number] [facility] [place] [address] Sep, [facility] [address] [id number] [facility] [place] [address] Sep, [facility] [address] [id number] [facility] [place] [address] Sep, [facility] [address] [id number] [address] [place] [address], [place] [address] Sep, [facility] [address] [id number] [address] [place] [address], [place] [address] Sep, [facility] [address] [id number] [address] [place] [address], [place] [address] Sep, [facility] [address] [id number] [address] [place] [address], [place] [address] Aug, [facility] [address] [id number] [address] [place] [address], [place] [address] Aug, [facility] [address] [id number] [address] [place] [address], [place] [address] Aug, [facility] [address] [id number] [address] [place] [address], [place] [address] Aug, [facility] [address] [id number] [address] [place] [address], [place] [address] Aug, [facility] [address] [id number] [address] [place] [address], [place] [address] Aug, [facility] [address] [id number] [address] [place] [address], [place] [address] Jul, [facility] [address] [id number] [address] [place] [address], [place] [address] Jul, [facility] [address] [id number] [address] [place] [address], [place] [address] Jul, [facility] [address] [id number] [address] [place] [address], [place] [address] Jul, [facility] [address] [id number] [address] [place] [address], [place] [address] Jul, [facility] [address] [id number] [address] [place] [address], [place] [address] Jul, [facility] [address] [id number] [address] [place] [address], [place] [address] Jul, [facility] [address] [id number] [address] [place] [address], [place] [address] Jul, [facility] [address] [id number] [address] [place] [address], [place] [address] Jul, [facility] [address] [id number] [address] [place] [address], [place] [address] Jul, [facility] [address] [id number] [address] [place] [address], [place] [address] Jun, [facility] [address] [id number] [address] [place] [address], [place] [address] Jun, [facility] [address] [id number] [address] [place] [address], [place] [address] Jun, [facility] [address] [id number] [address] [place] [address], [place] [address] Jun, [facility] [address] [id number] [address] [place] [address], [place] [address] Jun, [facility] [address] [id number] [address] [place] [address], [place] [address] Jun, [facility] [address] [id number] [address] [place] [address], [place] [address] Jun, [facility] [address] [id number] [address] [place] [address], [place] [address] Jun, [facility] [address] [id number] [address] [place] [address], [place] [address] May, [facility] [address] [id number] [address] [place] [address], [place] [address] May, [facility] [address] [id number] [address] [place] [address], [place] [address] May, [facility] [address] [id number] [address] [place] [address], [place] [address] May, [facility] [address] [id number] [address] [place] [address], [place] [address] May, [facility] [address] [id number] [address] [place] [address], [place] [address] May, [facility] [address] [id number] [address] [place] [address], [place] [address] May, [facility] [address] [id number] [address] [place] [address], [place] [address] May, [facility] [address] [id number] [address] [place] [address], [place] [address] Apr, [facility] [address] [id number] [address] [place] [address], [place] [address] Apr, [facility] [address] [id number] [address] [place] [address], [place] [address] Apr, [facility] [address] [id number] [address] [place] [address], [place] [address] Apr, [facility] [address] [id number] [address] [place] [address], [place] [address] Apr, [facility] [address] [id number] [address] [place] [address], [place] [address] Apr, [facility] [address] [id number] [address] [place] [address], [place] [address] Mar, [facility] [address] [id number] [address] [place] [address], [place] [address] Mar, [facility] [address] [id number] [address] [place] [address], [place] [address] Mar, [facility] [address] [id number] [address] [place] [address], [place] [address] Mar, [facility] [address] [id number] [address] [place] [address], [place] [address] Mar, [facility] [address] [id number] [address] [place] [address], [place] [address] Mar, [facility] [address] [id number] [address] [place] [address], [place] [address] Mar, [facility] [address] [id number] [address] [place] [address], [place] [address] 30 Feb, 2013 [facility] [address] [id number] [address] [place] [address], [place] [address] 30 Feb, 2013 [facility] [address] [id number] [address] [place] [address], [place] [address] Feb, [facility] [address] [id number] [address] [place] [address], [place] [address] Feb, [facility] [address] [id number] [address] [place] [address], [place] [address] Feb, [facility] [address] [id number] [address] [place] [address], [place] [address] Feb, [facility] [address] [id number] [address] [place] [address], [place] [address] Jan, [facility] [address] [id number] [address] [place] [address], [place] [address] Jan, [facility] [address] [id number] [address] [place] [address], [place] [address] Jan, [facility] [address] [id number] [address] [place] [address], [place] [address] Jan, [facility] [address] [id number] [address] [place] [address], [place] [address] Jan, [facility] [address] [id number] [address] [place] [address], [place] [address] Jan, [facility] [address] [id number] [address] [place] [address], [place] [address] Jan, [facility] [address] [id number] [address] [place] [address], [place] [address] Jan, [facility] [address] [id number] [address] [place] [address], [place] [address] Jan, [facility] [address] [id number] [address] [place] [address], [place] [address] Dec, [facility] [address] [id number] [address] [place] [address], [place] [address] Dec, [facility] [address] [id number] [address] [place] [address], [place] [address] Dec, [facility] [address] [id number] [address] [place] [address], [place] [address] Dec, [facility] [address] [id number] [address] [place] [address], [place] [address] Dec, [facility] [address] [id number] [address] [place] [address], [place] [address] Dec, [facility] [address] [id number] [address] [place] [address], [place] [address] Dec, [facility] [address] [id number] [address] [place] [address], [place] [address] Dec, [facility] [address] [id number] [address] [place] [address], [place] [address] Dec, [facility] [address] [id number] [address] [place] [address], [place] [address] Dec, [facility] [address] [id number] [address] [place] [address], [place] [address] Dec, [facility] [address] [id number] [address] [place] [address], [place] [address] Dec, [facility] [address] [id number] [address] [place] [address], [place] [address] Dec, [facility] [address] [id number] [address] [place] [address], [place] [address] Nov, [facility] [address] [id number] [address] [place] [address], [place] [address] Nov, [facility] [address] [id number] [address] [place] [address], [place] [address] Nov, [facility] [address] [id number] [address] [place] [address], [place] [address] Nov, [facility] [address] [id number] [address] [place] [address], [place] [address] October, [facility] [address] [id number] [address] [place] [address], [place] [address] October, [facility] [address] [id number] [address] [place] [address], [place] [address] October, [facility] [address] [id number] [address] [place] [address], [place] [address] October, [facility] [address] [id number] [address] [place] [address], [place] [address] October, [facility] [address] [id number] [address] [place] [address], [place] [address] October, [facility] [address] [id number] [address] [place] [address], [place] [address] Sep, [facility] [address] [id number] [address] [place] [address], [place] [address] Sep, [facility] [address] [id number] [address] [place] [address], [place] [address] Sep, [facility] [address] [id number] [address] [place] [address], [place] [address] Sep, [facility] [address] [id number] [address] [place] [address], [place] [address] 19 Sep, 2012 [facility] [address] [id number] [address] [place] [address], [place] [address] 16 Sep, 2012 [facility] [address] [id number] [address] [place] [address], [place] [address] Sep, [facility] [address] [id number] [address] [place] [address], [place] [address] Sep, [facility] [address] [id number] [address] [place] [address], [place] [address] Sep, [facility] [address] [id number] [address] [place] [address], [place] [address] Sep, [facility] [address] [id number] [address] [place] [address], [place] [address] Sep, [facility] [address] [id number] [address] [place] [address], [place] [address] Aug, [facility] [address] [id number] [address] [place] [address], [place] [address] Aug, [facility] [address] [id number] [address] [place] [address], [place] [address] 25 Aug, 2012 [facility] [address] [id number] [address] [place] [address], [place] [address] Aug, [facility] [address] [id number] [address] [place] [address], [place] [address] 19 Aug, 2012 [facility] [address] [id number] [address] [place] [address], [place] [address] 18 Aug, 2012 [facility] [address] [id number] [address] [place] [address], [place] [address] 17 Aug, 2012 [facility] [address] [id number] [address] [place] [address], [place] [address] 15 Aug, 2012 [facility] [address] [id number] [address] [place] [address], [place] [address] 15 Aug, 2012 [facility] [address] [id number] [address] [place] [address], [place] [address] Aug, [facility] [address] [id number] [address] [place] [address], [place] [address] Aug, [facility] [address] [id number] [address] [place] [address], [place] [address] Aug, [facility] [address] [id number] [address] [place] [address], [place] [address] Jul, [facility] [address] [id number] [address] [place] [address], [place] [address] Jul, [facility] [address] [id number] [address] [place] [address], [place] [address] Jul, [facility] [address] [id number] [address] [place] [address], [place] [address] Jul, [facility] [address] [id number] [address] [place] [address], [place] [address] Jul, [facility] [address] [id number] [address] [place] [address], [place] [address] Jul, [facility] [address] [id number] [address] [place] [address], [place] [address] Jul, [facility] [address] [id number] [address] [place] [address], [place] [address] Jul, [facility] [address] [id number] [address] [place] [address], [place] [address] Jul, [facility] [address] [id number] [address] [place] [address], [place] [address] Jul, [facility] [address] [id number] [address] [place] [address], [place] [address] May, [facility] [address] [id number] [place] [id number] May, [facility] [address] [id number] [address] [address] May, [facility] [address] [id number] [address] [place] [address] May, [facility] [address] [id number] [address] [place] [address] May, [facility] [address] [id number] [address] [place] [address] Apr, [facility] [address] [id number] [place] [id number] Apr, [facility] [address] [id number] [address] [place] [address] Apr, [facility] [address] [id number] [address] [place] [address] Mar, [facility] [address] [id number] [place] [id number] Mar, [facility] [address] [id number] [address] [place] [address] Mar, [facility] [address] [id number] [place] [id number] Feb, [facility] [address] [id number] [address] [place] [address] Feb, [facility] [address] [id number] [address] [place] [address] Feb, [facility] [address] [id number] [place] [id number] Feb, [facility] [address] [id number] [place] [id number] Feb, [facility] [place] [address] [id number] [place] [id number] Jan, [facility] [address] [id number] [address] [place] [address] Jan, [facility] [address] [id number] [place] [id number] Jan, [facility] [address] [id number] [place] [id number] Jan, [facility] [address] [id number] [place] [id number] Jan, [facility] [address] [facility] [id number] [address] [address] Jan, [facility] [address] [facility] [id number] [address] [place] [id number] Jan, [facility] [address] [facility] [id number] [address] [place] [id number] Aug, [facility] [address] [id number] [place] [id number] Aug, [facility] [address] [facility] [id number] [address] [place] [id number] Jul, [facility] [address] [facility] [id number] [address] [place] [id number] Jul, [facility] [address] [facility] [id number] [address] [place] [id number] Jul, [facility] [address] [id number] [place] [id number] Jul, 2011 [facility] [address] [facility] [id number] [address] [place] [id number] Jul, [facility] [address] [id number] [place] [id number] Jul, [facility] [address] [facility] [id number] [address] [place] [id number] Jul, [facility] [address] [id number] [place] [id number] Jul, [facility] [address] [id number] [place] [id number] Jul, [facility] [address] [id number] [place] [id number] Jul, [facility] [address] [facility] [id number] [address] [place] [id number] May, [facility] [address] [id number] [address] [place] [id number] May, [facility] [address] [id number] [address] [place] [id number] May, [facility] [address] [id number] [address] [place] [id number] Apr, [facility] [address] [id number] [address] [place] [id number] Jan, [facility] [address] [id number] [address] [place] [id number] Jan, [facility] [address] [id number] [address] [place] [id number] Dec, [facility] [address] [id number] [address] [place] [id number] Dec, [facility] [address] [id number] [address] [place] [id number] May, [facility] [address] [id number] [address] [place] [id number] Mar, [facility] [address] [id number] [address] [place] [id number] Mar, [facility] [address] [id number] [address] [place] [id number] 14 Jan, 2009 IMMUNIZATIONS No Known Immunizations [...]
--- OUTSIDE RECORDS SUMMARY | 2020-01-28 13:11 | XMS REPORT ---
Author Author Heydi Candelario Doctor Organization [facility] Address Unknown Phone Unavailable Care Team Providers Care Privacy Compliance Manager Name Role Phone Migration, Doctor Unavailable Unavailable PROBLEMS Type Condition ICD9-CM Code OID04-VC Code Onset Dates Condition S tatus SNOMED Code Problem Chronic pain syndrome G89.4 Active 748237737 Problem Sore throat J02.9 Active 93389227 3 Problem Choriocarcinoma C58 Active 1881 25097 Problem retirement current use of anticoagulant Z79.01 Active 382355981 Problem History of venous thromboembolism V12.51 Active 641543920 Problem Cellulitis of unspecified part of limb L03.119 Active 789212301 Problem Gastroesophageal reflux disease without esophagitis K21.9 Active 344884224 Problem History of pulmonary embolism Z86.711 Active 525553312 Problem Pseudotumor cerebri G93.2 Active 23871953 Problem History of DVT (deep vein thrombosis) Z86.718 Active 046863378 ALLERGIES No Information ENCOUNTERS Encounter Location Date Diagnosis [place] [address] [place] [id number] [address] [place] [address] 14 Nov, 2019 Encounter for screening labo ratory testing for COVID-19 virus Z11.59 [place] [address] [place] [id number] [address] [place] [address] Apr, 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 [place] [id number] [facility] [id number] [address] [place] [address] Apr, retirement current use of ant icoagulant Z79.01 [place] [address] [facility] [id number] [address] [place] [address] Apr, Cellulitis of unspecified pa rt of limb L03.119 ; Allergic contact dermatitis due to adhesives L23.1 and Chronic pain syndrome G89.4 [place] [address] [address] Apr, [facility] [address] [address] Apr, retirement current use of ant icoagulant Z79.01 ; Cellulitis of unspecified part of limb L03.119 ; Chronic pain syndrome G89.4 and Anxiety F41.9 [place] [address] [address] Apr, [facility] [address] [address] Apr, [place] [address] [address] Mar, [place] [address] [address] Mar, [place] [address] [address] Mar, Sore throat J02.9 ; Gastroes ophageal reflux disease without esophagitis K21.9 ; Pseudotumor cerebri G93.2 ; Chronic pain syndrome G89.4 ; Choriocarcinoma C58 ; History of pulmonary embolism Z86.711 ; History of DVT (deep vein thrombosis) Z86.718 ; Anxiety F41.9 and Tachycardia R00.0 [place] [address] [place] [id number] [address] [place] [address] Feb, Anxiety 300.00 and Chronic p ain 338.29 [facility] [address] [place] [id number] [address] [place] [address] Feb, [facility] [address] [address] Feb, [facility] [address] [place] [id number] [address] [place] [address] Jan, 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 therapy V58.61 and Dysuria 788.1 [place] [address] [place] [id number] [address] [place] [address] Jan, Dysuria 788.1 [place] [address] [address] Jan, Anxiety 300.00 and Chronic p ain 338.29 [place] [address] [address] Jan, [place] [address] [address] Jan, [place] [address] [address] Jan, [place] [address] [address] Dec, Weakness 780.79 [place] [address] [address] Dec, 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 therapy V58.[address] [address] Dec, Palpitations 785.1 ; Tremor 781.0 ; Weakness 780.79 ; retirement current use of anticoagulant therapy V58.61 and Yeast vaginitis 112.1 [place] [address] [place] [id number] [address] [place] [address] Dec, [place] [address] [address] Dec, Cervicalgia 723.1 ; Tachycar yoseph 785.0 ; Pseudotumor cerebri 348.2 and History of venous thromboembolism V12.51 [place] [address] [address] Nov, [place] [address] [place] [id number] [address] [place] [address] Nov, [place] [address] [place] [id number] [place] [address] 24 Nov, 2014 Tachycardia 785.0 ; Pseudotu mor cerebri 348.2 ; Anxiety 300.00 and History of venous thromboembolism V12.51 [facility] [address] [id number] [address] [place] [address] 19 Nov, 2014 [facility] [address] [id number] [address] [place] [address] 18 Nov, 2014 [facility] [address] [id number] [address] [place] [address] 16 Nov, 2014 [facility] [address] [id number] [address] [place] [address] Nov, [facility] [address] [facility] [id number] [address] [place] [address] Nov, [facility] [address] [facility] [id number] [address] [place] [address] Nov, [facility] [address] [id number] [address] [place] [address] Nov, [facility] [address] [facility] [id number] [address] [place] [address] October, [facility] [address] [facility] [id number] [address] [place] [address] October, [facility] [address] [facility] [id number] [address] [place] [address] October, Pain in thoracic spine 724.1 and Tachycardia 785.0 [facility] [address] [id number] [address] [place] [address] October, [facility] [address] [facility] [id number] [address] [place] [address] October, [facility] [address] [facility] [id number] [address] [place] [address] 14 Sep, 2014 [facility] [address] [facility] [id number] [address] [place] [address] Sep, [facility] [address] [id number] [address] [place] [address], [place] [address] Aug, [facility] [address] [id number] [address] [place] [address], [place] [address] Aug, [facility] [address] [id number] [address] [place] [address], [place] [address] Aug, [facility] [address] [id number] [address] [place] [address], [place] [address] Aug, [facility] [address] [id number] [address] [place] [address], [place] [address] Aug, [facility] [address] [id number] [address] [place] [address], [place] [address] Aug, [facility] [address] [id number] [address] [place] [address], [place] [address] Aug, [facility] [address] [id number] [address] [place] [address], [place] [address] Aug, [facility] [address] [id number] [address] [place] [address], [place] [address] Aug, [facility] [address] [id number] [address] [place] [address], [place] [address] Aug, [facility] [address] [id number] [address] [place] [address], [place] [address] Aug, [facility] [address] [id number] [address] [place] [address], [place] [address] Aug, [facility] [address] [id number] [address] [place] [address], [place] [address] Jul, [facility] [address] [id number] [address] [place] [address], [place] [address] Jul, [facility] [address] [id number] [address] [place] [address], [place] [address] Jul, [facility] [address] [id number] [address] [place] [address], [place] [address] 23 Jul, 2014 [facility] [address] [id number] [address] [place] [address], [place] [address] 23 Jul, 2014 [facility] [address] [id number] [address] [place] [address], [place] [address] 23 Jul, 2014 [facility] [address] [id number] [address] [place] [address], [place] [address] 23 Jul, 2014 [facility] [address] [id number] [address] [place] [address], [place] [address] 23 Jul, 2014 [facility] [address] [id number] [address] [place] [address], [place] [address] 20 Jul, 2014 [facility] [address] [id number] [address] [place] [address], [place] [address] 20 Jul, 2014 [facility] [address] [id number] [address] [place] [address] 19 Jul, 2014 [facility] [address] [id number] [address] [place] [address], [place] [address] 19 Jul, 2014 [facility] [address] [id number] [address] [place] [address] 17 Jul, 2014 [facility] [address] [id number] [address] [place] [address] 17 Jul, 2014 [facility] [address] [id number] [address] [place] [address] 16 Jul, 2014 [facility] [address] [id number] [address] [place] [address], [place] [address] 16 Jul, 2014 [facility] [address] [id number] [address] [place] [address] 16 Jul, 2014 [facility] [address] [id number] [address] [place] [address] 16 Jul, 2014 [facility] [address] [id number] [address] [place] [address], [place] [address] 13 Jul, 2014 [facility] [address] [id number] [address] [place] [address], [place] [address] Jul, 2014 [facility] [address] [id number] [address] [place] [address], [place] [address] Jul, 2014 [facility] [address] [id number] [address] [place] [address], [place] [address] Jul, 2014 [facility] [address] [id number] [address] [place] [address], [place] [address] Jul, 2014 [facility] [address] [id number] [address] [place] [address], [place] [address] Jul, [facility] [address] [id number] [address] [place] [address], [place] [address] Jul, 2014 [facility] [address] [id number] [address] [place] [address], [place] [address] Jul, [facility] [address] [id number] [address] [place] [address], [place] [address] Jul, [facility] [address] [id number] [address] [place] [address], [place] [address] Jul, [facility] [address] [id number] [address] [place] [address] Jul, [facility] [address] [id number] [address] [place] [address] Jul, [facility] [address] [id number] [address] [place] [address], [place] [address] Jun, [facility] [address] [id number] [address] [place] [address] Jun, [facility] [address] [id number] [address] [place] [address] Jun, [facility] [address] [id number] [address] [place] [address] Jun, [facility] [address] [id number] [address] [place] [address], [place] [address] Jun, [facility] [address] [id number] [address] [place] [address], [place] [address] Jun, [facility] [address] [id number] [address] [place] [address], [place] [address] Jun, [facility] [address] [id number] [address] [place] [address], [place] [address] Jun, [facility] [address] [id number] [address] [place] [address], [place] [address] Jun, [facility] [address] [id number] [address] [place] [address], [place] [address] Jun, [facility] [address] [id number] [address] [place] [address], [place] [address] Jun, [facility] [address] [id number] [address] [place] [address], [place] [address] Jun, [facility] [address] [id number] [address] [place] [address], [place] [address] Jun, [facility] [address] [id number] [address] [place] [address], [place] [address] Jun, [facility] [address] [id number] [address] [place] [address], [place] [address] Jun, [facility] [address] [id number] [address] [place] [address], [place] [address] Jun, [facility] [address] [id number] [address] [place] [address], [place] [address] Jun, [facility] [address] [id number] [address] [place] [address], [place] [address] Jun, [facility] [address] [id number] [address] [place] [address], [place] [address] Jun, [facility] [address] [id number] [address] [place] [address], [place] [address] Jun, [facility] [address] [id number] [address] [place] [address], [place] [address] May, [facility] [address] [id number] [address] [place] [address], [place] [address] May, [facility] [address] [id number] [address] [place] [address], [place] [address] May, [facility] [address] [id number] [address] [place] [address], [place] [address] May, [facility] [address] [id number] [address] [place] [address], [place] [address] May, [facility] [address] [id number] [address] [place] [address], [place] [address] May, [facility] [address] [id number] [address] [place] [address], [place] [address] May, [facility] [address] [id number] [address] [place] [address], [place] [address] May, [facility] [address] [id number] [address] [place] [address], [place] [address] May, [facility] [address] [id number] [address] [place] [address], [place] [address] May, [facility] [address] [id number] [address] [place] [address], [place] [address] May, [facility] [address] [id number] [address] [place] [address], [place] [address] 18 May, 2014 [facility] [address] [id number] [address] [place] [address], [place] [address] 18 May, 2014 [facility] [address] [id number] [address] [place] [address], [place] [address] 17 May, 2014 [facility] [address] [id number] [address] [place] [address], [place] [address] 16 May, 2014 [facility] [address] [id number] [facility] [place] [address] 16 May, 2014 [facility] [address] [id number] [facility] [place] [address] 15 May, 2014 [facility] [address] [id number] [address] [place] [address], [place] [address] 15 May, 2014 [facility] [address] [id number] [address] [place] [address], [place] [address] May, [facility] [address] [id number] [address] [place] [address], [place] [address] May, [facility] [address] [id number] [address] [place] [address], [place] [address] May, [facility] [address] [id number] [address] [place] [address], [place] [address] May, [facility] [address] [id number] [address] [place] [address], [place] [address] May, [facility] [address] [id number] [address] [place] [address], [place] [address] May, [facility] [address] [id number] [address] [place] [address], [place] [address] May, [facility] [address] [id number] [address] [place] [address], [place] [address] May, [facility] [address] [id number] [address] [place] [address], [place] [address] May, [facility] [address] [id number] [address] [place] [address], [place] [address] May, [facility] [address] [id number] [address] [place] [address], [place] [address] May, [facility] [address] [id number] [address] [place] [address], [place] [address] May, [facility] [address] [id number] [address] [place] [address], [place] [address] 05 May, 2014 [facility] [address] [id number] [address] [place] [address], [place] [address] May, [facility] [address] [id number] [address] [place] [address], [place] [address] May, [facility] [address] [id number] [address] [place] [address], [place] [address] May, [facility] [address] [id number] [address] [place] [address], [place] [address] Apr, [facility] [address] [id number] [address] [place] [address], [place] [address] Apr, [facility] [address] [id number] [address] [place] [address], [place] [address] Apr, [facility] [address] [id number] [address] [place] [address], [place] [address] Apr, [facility] [address] [id number] [address] [place] [address], [place] [address] Apr, [facility] [address] [id number] [address] [place] [address], [place] [address] Apr, [facility] [address] [id number] [address] [place] [address], [place] [address] Apr, [facility] [address] [id number] [address] [place] [address], [place] [address] Apr, [facility] [address] [id number] [address] [place] [address], [place] [address] Apr, [facility] [address] [id number] [address] [place] [address], [place] [address] Apr, [facility] [address] [id number] [address] [place] [address], [place] [address] Mar, [facility] [address] [id number] [address] [place] [address], [place] [address] Mar, [facility] [address] [id number] [address] [place] [address], [place] [address] 31 Mar, 2013 [facility] [address] [id number] [address] [place] [address], [place] [address] Mar, 2013 [facility] [address] [id number] [address] [place] [address], [place] [address] 30 Mar, 2014 [facility] [address] [id number] [address] [place] [address], [place] [address] 30 Mar, 2014 [facility] [address] [id number] [address] [place] [address], [place] [address] Mar, [facility] [address] [id number] [address] [place] [address], [place] [address] Mar, [facility] [address] [id number] [address] [place] [address], [place] [address] Mar, [facility] [address] [id number] [address] [place] [address], [place] [address] Mar, [facility] [address] [id number] [address] [place] [address], [place] [address] Mar, [facility] [address] [id number] [address] [place] [address], [place] [address] Mar, [facility] [address] [id number] [address] [place] [address], [place] [address] Mar, [facility] [address] [id number] [address] [place] [address], [place] [address] Mar, [facility] [address] [id number] [address] [place] [address], [place] [address] Mar, [facility] [address] [id number] [address] [place] [address], [place] [address] Mar, [facility] [address] [id number] [address] [place] [address], [place] [address] Mar, [facility] [address] [id number] [address] [place] [address] Mar, [facility] [address] [id number] [address] [place] [address], [place] [address] Mar, [facility] [address] [id number] [address] [place] [address], [place] [address] Mar, [facility] [address] [id number] [address] [place] [address], [place] [address] 05 Sep, 2013 [facility] [address] [id number] [address] [place] [address], [place] [address] 05 Sep, 2013 [facility] [address] [id number] [address] [place] [address], [place] [address] 04 Feb, 2013 [facility] [address] [id number] [address] [place] [address], [place] [address] 04 Feb, 2013 [facility] [address] [id number] [address] [place] [address], [place] [address] Feb, 2013 [facility] [address] [id number] [address] [place] [address], [place] [address] Feb, 2013 [facility] [address] [id number] [address] [place] [address], [place] [address] Feb, 2013 [facility] [address] [id number] [address] [place] [address], [place] [address] Feb, 2013 [facility] [address] [id number] [address] [place] [address], [place] [address] Feb, 2013 [facility] [address] [id number] [address] [place] [address], [place] [address] Feb, 2013 [facility] [address] [id number] [address] [place] [address], [place] [address] Jan, [facility] [address] [id number] [address] [place] [address], [place] [address] Jan, [facility] [address] [id number] [address] [place] [address], [place] [address] Jan, [facility] [address] [id number] [address] [place] [address] Jan, [facility] [address] [id number] [facility] [place] [address] Jan, [facility] [address] [id number] [facility] [place] [address] Jan, [facility] [address] [id number] [address] [place] [address], [place] [address] Jan, [facility] [address] [id number] [address] [place] [address], [place] [address] Jan, [facility] [address] [id number] [address] [place] [address], [place] [address] Jan, [facility] [address] [id number] [address] [place] [address], [place] [address] Jan, [facility] [address] [id number] [address] [place] [address], [place] [address] Jan, [facility] [address] [id number] [address] [place] [address], [place] [address] Jan, [facility] [address] [id number] [address] [place] [address], [place] [address] Dec, [facility] [address] [id number] [address] [place] [address], [place] [address] Dec, [facility] [address] [id number] [address] [place] [address], [place] [address] Dec, [facility] [address] [id number] [address] [place] [address], [place] [address] Dec, [facility] [address] [id number] [address] [place] [address], [place] [address] Dec, [facility] [address] [id number] [address] [place] [address], [place] [address] Dec, [facility] [address] [id number] [address] [place] [address], [place] [address] Dec, [facility] [address] [id number] [address] [place] [address], [place] [address] Dec, 2013 [facility] [address] [id number] [address] [place] [address], [place] [address] Dec, [facility] [address] [id number] [address] [place] [address], [place] [address] Dec, [facility] [address] [id number] [address] [place] [address], [place] [address] Dec, [facility] [address] [id number] [address] [place] [address], [place] [address] Dec, [facility] [address] [id number] [address] [place] [address], [place] [address] Nov, [facility] [address] [id number] [address] [place] [address], [place] [address] Nov, [facility] [address] [id number] [address] [place] [address], [place] [address] Nov, [facility] [address] [id number] [address] [place] [address], [place] [address] Nov, [facility] [address] [id number] [address] [place] [address], [place] [address] Nov, [facility] [address] [id number] [address] [place] [address], [place] [address] Nov, [facility] [address] [id number] [address] [place] [address], [place] [address] Nov, [facility] [address] [id number] [address] [place] [address], [place] [address] Nov, [facility] [address] [id number] [address] [place] [address], [place] [address] Nov, [facility] [address] [id number] [address] [place] [address], [place] [address] Nov, [facility] [address] [id number] [address] [place] [address], [place] [address] Nov, [facility] [address] [id number] [address] [place] [address], [place] [address] Nov, [facility] [address] [id number] [address] [place] [address], [place] [address] Nov, [facility] [address] [id number] [address] [place] [address], [place] [address] Nov, [facility] [address] [id number] [address] [place] [address], [place] [address] October, [facility] [address] [id number] [address] [place] [address], [place] [address] October, [facility] [address] [id number] [address] [place] [address], [place] [address] October, [facility] [address] [id number] [address] [place] [address], [place] [address] October, [facility] [address] [id number] [address] [place] [address], [place] [address] October, [facility] [address] [id number] [address] [place] [address], [place] [address] October, [facility] [address] [id number] [address] [place] [address], [place] [address] October, [facility] [address] [id number] [address] [place] [address], [place] [address] October, [facility] [address] [id number] [address] [place] [address], [place] [address] October, [facility] [address] [id number] [address] [place] [address], [place] [address] October, [facility] [address] [id number] [address] [place] [address], [place] [address] October, [facility] [address] [id number] [address] [place] [address], [place] [address] October, [facility] [address] [id number] [facility] [place] [address] Sep, [facility] [address] [id number] [facility] [place] [address] Sep, [facility] [address] [id number] [facility] [place] [address] Sep, [facility] [address] [id number] [address] [place] [address], [place] [address] Sep, [facility] [address] [id number] [address] [place] [address], [place] [address] Sep, [facility] [address] [id number] [address] [place] [address], [place] [address] Sep, [facility] [address] [id number] [address] [place] [address], [place] [address] Aug, [facility] [address] [id number] [address] [place] [address], [place] [address] Aug, [facility] [address] [id number] [address] [place] [address], [place] [address] Aug, [facility] [address] [id number] [address] [place] [address], [place] [address] Aug, [facility] [address] [id number] [address] [place] [address], [place] [address] Aug, [facility] [address] [id number] [address] [place] [address], [place] [address] Aug, [facility] [address] [id number] [address] [place] [address], [place] [address] Jul, [facility] [address] [id number] [address] [place] [address], [place] [address] Jul, [facility] [address] [id number] [address] [place] [address], [place] [address] Jul, [facility] [address] [id number] [address] [place] [address], [place] [address] Jul, [facility] [address] [id number] [address] [place] [address], [place] [address] Jul, [facility] [address] [id number] [address] [place] [address], [place] [address] Jul, [facility] [address] [id number] [address] [place] [address], [place] [address] Jul, [facility] [address] [id number] [address] [place] [address], [place] [address] Jul, [facility] [address] [id number] [address] [place] [address], [place] [address] Jul, [facility] [address] [id number] [address] [place] [address], [place] [address] Jul, [facility] [address] [id number] [address] [place] [address], [place] [address] Jun, [facility] [address] [id number] [address] [place] [address], [place] [address] Jun, [facility] [address] [id number] [address] [place] [address], [place] [address] Jun, [facility] [address] [id number] [address] [place] [address], [place] [address] Jun, [facility] [address] [id number] [address] [place] [address], [place] [address] Jun, [facility] [address] [id number] [address] [place] [address], [place] [address] Jun, [facility] [address] [id number] [address] [place] [address], [place] [address] Jun, [facility] [address] [id number] [address] [place] [address], [place] [address] Jun, [facility] [address] [id number] [address] [place] [address], [place] [address] May, [facility] [address] [id number] [address] [place] [address], [place] [address] May, [facility] [address] [id number] [address] [place] [address], [place] [address] May, [facility] [address] [id number] [address] [place] [address], [place] [address] May, [facility] [address] [id number] [address] [place] [address], [place] [address] May, [facility] [address] [id number] [address] [place] [address], [place] [address] May, [facility] [address] [id number] [address] [place] [address], [place] [address] May, [facility] [address] [id number] [address] [place] [address], [place] [address] May, [facility] [address] [id number] [address] [place] [address], [place] [address] Apr, [facility] [address] [id number] [address] [place] [address], [place] [address] Apr, [facility] [address] [id number] [address] [place] [address], [place] [address] Apr, [facility] [address] [id number] [address] [place] [address], [place] [address] Apr, [facility] [address] [id number] [address] [place] [address], [place] [address] Apr, [facility] [address] [id number] [address] [place] [address], [place] [address] Apr, [facility] [address] [id number] [address] [place] [address], [place] [address] Mar, [facility] [address] [id number] [address] [place] [address], [place] [address] Mar, [facility] [address] [id number] [address] [place] [address], [place] [address] Mar, [facility] [address] [id number] [address] [place] [address], [place] [address] Mar, [facility] [address] [id number] [address] [place] [address], [place] [address] Mar, [facility] [address] [id number] [address] [place] [address], [place] [address] Mar, [facility] [address] [id number] [address] [place] [address], [place] [address] Mar, [facility] [address] [id number] [address] [place] [address], [place] [address] 30 Feb, 2013 [facility] [address] [id number] [address] [place] [address], [place] [address] 30 Feb, 2013 [facility] [address] [id number] [address] [place] [address], [place] [address] Feb, [facility] [address] [id number] [address] [place] [address], [place] [address] Feb, [facility] [address] [id number] [address] [place] [address], [place] [address] Feb, [facility] [address] [id number] [address] [place] [address], [place] [address] Feb, [facility] [address] [id number] [address] [place] [address], [place] [address] Jan, [facility] [address] [id number] [address] [place] [address], [place] [address] Jan, [facility] [address] [id number] [address] [place] [address], [place] [address] Jan, [facility] [address] [id number] [address] [place] [address], [place] [address] Jan, [facility] [address] [id number] [address] [place] [address], [place] [address] Jan, [facility] [address] [id number] [address] [place] [address], [place] [address] Jan, [facility] [address] [id number] [address] [place] [address], [place] [address] Jan, [facility] [address] [id number] [address] [place] [address], [place] [address] Jan, [facility] [address] [id number] [address] [place] [address], [place] [address] Jan, [facility] [address] [id number] [address] [place] [address], [place] [address] Dec, [facility] [address] [id number] [address] [place] [address], [place] [address] Dec, [facility] [address] [id number] [address] [place] [address], [place] [address] Dec, [facility] [address] [id number] [address] [place] [address], [place] [address] Dec, [facility] [address] [id number] [address] [place] [address], [place] [address] Dec, [facility] [address] [id number] [address] [place] [address], [place] [address] Dec, [facility] [address] [id number] [address] [place] [address], [place] [address] Dec, [facility] [address] [id number] [address] [place] [address], [place] [address] Dec, [facility] [address] [id number] [address] [place] [address], [place] [address] Dec, [facility] [address] [id number] [address] [place] [address], [place] [address] Dec, [facility] [address] [id number] [address] [place] [address], [place] [address] Dec, [facility] [address] [id number] [address] [place] [address], [place] [address] Dec, [facility] [address] [id number] [address] [place] [address], [place] [address] Dec, [facility] [address] [id number] [address] [place] [address], [place] [address] Nov, [facility] [address] [id number] [address] [place] [address], [place] [address] Nov, [facility] [address] [id number] [address] [place] [address], [place] [address] Nov, [facility] [address] [id number] [address] [place] [address], [place] [address] Nov, [facility] [address] [id number] [address] [place] [address], [place] [address] October, [facility] [address] [id number] [address] [place] [address], [place] [address] October, [facility] [address] [id number] [address] [place] [address], [place] [address] October, [facility] [address] [id number] [address] [place] [address], [place] [address] October, [facility] [address] [id number] [address] [place] [address], [place] [address] October, [facility] [address] [id number] [address] [place] [address], [place] [address] October, [facility] [address] [id number] [address] [place] [address], [place] [address] Sep, [facility] [address] [id number] [address] [place] [address], [place] [address] Sep, [facility] [address] [id number] [address] [place] [address], [place] [address] Sep, [facility] [address] [id number] [address] [place] [address], [place] [address] Sep, [facility] [address] [id number] [address] [place] [address], [place] [address] 19 Sep, 2012 [facility] [address] [id number] [address] [place] [address], [place] [address] 16 Sep, 2012 [facility] [address] [id number] [address] [place] [address], [place] [address] Sep, [facility] [address] [id number] [address] [place] [address], [place] [address] Sep, [facility] [address] [id number] [address] [place] [address], [place] [address] Sep, [facility] [address] [id number] [address] [place] [address], [place] [address] Sep, [facility] [address] [id number] [address] [place] [address], [place] [address] Sep, [facility] [address] [id number] [address] [place] [address], [place] [address] Aug, [facility] [address] [id number] [address] [place] [address], [place] [address] Aug, [facility] [address] [id number] [address] [place] [address], [place] [address] 25 Aug, 2012 [facility] [address] [id number] [address] [place] [address], [place] [address] Aug, [facility] [address] [id number] [address] [place] [address], [place] [address] 19 Aug, 2012 [facility] [address] [id number] [address] [place] [address], [place] [address] 18 Aug, 2012 [facility] [address] [id number] [address] [place] [address], [place] [address] 17 Aug, 2012 [facility] [address] [id number] [address] [place] [address], [place] [address] 15 Aug, 2012 [facility] [address] [id number] [address] [place] [address], [place] [address] 15 Aug, 2012 [facility] [address] [id number] [address] [place] [address], [place] [address] Aug, [facility] [address] [id number] [address] [place] [address], [place] [address] Aug, [facility] [address] [id number] [address] [place] [address], [place] [address] Aug, [facility] [address] [id number] [address] [place] [address], [place] [address] Jul, [facility] [address] [id number] [address] [place] [address], [place] [address] Jul, [facility] [address] [id number] [address] [place] [address], [place] [address] Jul, [facility] [address] [id number] [address] [place] [address], [place] [address] Jul, [facility] [address] [id number] [address] [place] [address], [place] [address] Jul, [facility] [address] [id number] [address] [place] [address], [place] [address] Jul, [facility] [address] [id number] [address] [place] [address], [place] [address] Jul, [facility] [address] [id number] [address] [place] [address], [place] [address] Jul, [facility] [address] [id number] [address] [place] [address], [place] [address] Jul, [facility] [address] [id number] [address] [place] [address], [place] [address] Jul, [facility] [address] [id number] [address] [place] [address], [place] [address] May, [facility] [address] [id number] [place] [id number] May, [facility] [address] [id number] [address] [address] May, [facility] [address] [id number] [address] [place] [address] May, [facility] [address] [id number] [address] [place] [address] May, [facility] [address] [id number] [address] [place] [address] Apr, [facility] [address] [id number] [place] [id number] Apr, [facility] [address] [id number] [address] [place] [address] Apr, [facility] [address] [id number] [address] [place] [address] Mar, [facility] [address] [id number] [place] [id number] Mar, [facility] [address] [id number] [address] [place] [address] Mar, [facility] [address] [id number] [place] [id number] Feb, [facility] [address] [id number] [address] [place] [address] Feb, [facility] [address] [id number] [address] [place] [id number] Feb, [facility] [address] [id number] [place] [id number] Feb, [facility] [address] [id number] [place] [id number] Feb, [facility] [address] [id number] [place] [id number] Jan, [facility] [address] [id number] [address] [place] [id number] Jan, [facility] [address] [id number] [place] [id number] Jan, [facility] [address] [id number] [place] [id number] Jan, [facility] [address] [id number] [place] [id number] Jan, [facility] [address] [facility] [id number] [place] [address] Jan, [facility] [address] [facility] [id number] [address] [place] [address] Jan, [facility] [address] [facility] [id number] [address] [place] [id number] Aug, [facility] [address] [id number] [place] [id number] Aug, [facility] [address] [facility] [id number] [address] [place] [id number] Jul, [facility] [address] [facility] [id number] [address] [place] [phone] Jul, [facility] [address] [facility] [id number] [address] [place] [id number] Jul, [facility] [address] [id number] [place] [id number] Jul, 2011 [facility] [address] [facility] [id number] [address] [place] [id number] Jul, [facility] [address] [id number] [place] [id number] Jul, [facility] [address] [facility] [id number] [address] [place] [address] Jul, [facility] [address] [id number] [place] [id number] Jul, [facility] [address] [id number] [place] [id number] Jul, [facility] [address] [id number] [place] [id number] Jul, [facility] [address] [facility] [id number] [address] [place] [id number] May, [facility] [address] [id number] [address] [place] [id number] May, [facility] [address] [id number] [address] [place] [address] [id number] May, [facility] [address] [id number] [address] [place] [id number] Apr, [facility] [address] [id number] [address] [place] [id number] Jan, [facility] [address] [id number] [address] [place] [id number] Jan, [facility] [address] [id number] [address] [place] [id number] Dec, [facility] [address] [id number] [address] [place] [id number] Dec, [facility] [address] [id number] [address] [place] [id number] May, [facility] [address] [id number] [address] [place] [id number] Mar, [facility] [address] [id number] [address] [place] [id number] Mar, [facility] [address] [id number] [address] [place] [id number] 14 Jan, 2009 IMMUNIZATIONS No Known Immunizations [...]
--- OUTSIDE RECORDS SUMMARY | 2020-01-28 13:11 | XMS REPORT ---
Author Author Heydi Candelario Doctor Organization [facility] Address Unknown Phone Unavailable Care Team Providers Care Monogram Machine Operator Name Role Phone Migration, Doctor Unavailable Unavailable PROBLEMS Type Condition ICD9-CM Code [id number] Code Onset Dates Condition S tatus SNOMED Code Problem Chronic pain syndrome G89.4 Active 423029789 Problem Sore throat J02.9 Active 52706124 3 Problem Choriocarcinoma C58 Active 1881 40067 Problem detention current use of anticoagulant Z79.01 Active 660194655 Problem History of venous thromboembolism V12.51 Active 504773282 Problem Cellulitis of unspecified part of limb L03.119 Active 460210859 Problem Gastroesophageal reflux disease without esophagitis K21.9 Active 594348838 Problem History of pulmonary embolism Z86.711 Active 597944527 Problem Pseudotumor cerebri G93.2 Active 74061956 Problem History of DVT (deep vein thrombosis) Z86.718 Active 413839532 ALLERGIES No Information ENCOUNTERS Encounter Location Date Diagnosis [place] [address] [place] [id number] [address] [place] [id number] 14 Nov, 2019 Encounter for screening labo ratory testing for COVID-19 virus Z11.59 [place] [address] [place] [id number] [address] [place] [id number] Apr, 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 [place] [address] [facility] [id number] [address] [place] [address] Apr, detention current use of ant icoagulant Z79.01 [place] [address] [address] [facility] [id number] [address] [place] [id number] Apr, Cellulitis of unspecified pa rt of limb L03.119 ; Allergic contact dermatitis due to adhesives L23.1 and Chronic pain syndrome G89.4 [place] [address] [address] Apr, [facility] [address] [address] Apr, detention current use of ant icoagulant Z79.01 ; Cellulitis of unspecified part of limb L03.119 ; Chronic pain syndrome G89.4 and Anxiety F41.9 [place] [address] [address] Apr, [facility] [address] [address] Apr, [place] [address] [address] Mar, [place] [address] [address] Mar, [place] [address] [address] Mar, Sore throat J02.9 ; Gastroes ophageal reflux disease without esophagitis K21.9 ; Pseudotumor cerebri G93.2 ; Chronic pain syndrome G89.4 ; Choriocarcinoma C58 ; History of pulmonary embolism Z86.711 ; History of DVT (deep vein thrombosis) Z86.718 ; Anxiety F41.9 and Tachycardia R00.0 [place] [address] [place] [id number] [address] [place] [address] Feb, Anxiety 300.00 and Chronic p ain 338.29 [facility] [address] [place] [id number] [address] [place] [address] Feb, [facility] [address] [address] Feb, [facility] [address] [place] [id number] [address] [place] [address] Jan, 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 and Dysuria 788.1 [place] [address] [place] [id number] [address] [place] [address] Jan, Dysuria 788.1 [place] [address] [address] Jan, Anxiety 300.00 and Chronic p ain 338.29 [place] [address] [address] Jan, [place] [address] [address] Jan, [place] [address] [address] Jan, [place] [address] [address] Dec, Weakness 780.79 [place] [address] [address] Dec, 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 [address] Dec, Palpitations 785.1 ; Tremor 781.0 ; Weakness 780.79 ; detention current use of anticoagulant therapy V58.61 and Yeast vaginitis 112.1 [place] [address] [place] [id number] [address] [place] [address] Dec, [place] [address] [address] Dec, Cervicalgia 723.1 ; Tachycar yoseph 785.0 ; Pseudotumor cerebri 348.2 and History of venous thromboembolism V12.51 [place] [address] [address] Nov, [place] [address] [place] [id number] [address] [place] [address] Nov, [place] [address] [place] [id number] [place] [address] 24 Nov, 2014 Tachycardia 785.0 ; Pseudotu mor cerebri 348.2 ; Anxiety 300.00 and History of venous thromboembolism V12.51 [facility] [address] [id number] [address] [place] [id number] 19 Nov, 2014 [facility] [address] [id number] [address] [place] [id number] 18 Nov, 2014 [facility] [address] [id number] [address] [place] [address] 16 Nov, 2014 [facility] [address] [id number] [address] [place] [id number] Nov, [facility] [address] [facility] [id number] [address] [place] [address] Nov, [facility] [address] [facility] [id number] [address] [place] [address] Nov, [facility] [address] [id number] [address] [place] [address] Nov, [facility] [address] [facility] [id number] [address] [place] [address] October, [facility] [address] [facility] [id number] [address] [place] [address] October, [facility] [address] [facility] [id number] [address] [place] [address] October, Pain in thoracic spine 724.1 and Tachycardia 785.0 [facility] [address] [id number] [address] [place] [address] October, [facility] [address] [facility] [id number] [address] [place] [address] October, [facility] [address] [facility] [id number] [address] [place] [address] 14 Sep, 2014 [facility] [address] [facility] [id number] [address] [place] [address] Sep, [facility] [address] [id number] [address] [place] [address], [place] [id number] Aug, [facility] [address] [id number] [address] [place] [address], [place] [id number] Aug, [facility] [address] [id number] [address] [place] [address], [place] [id number] Aug, [facility] [address] [id number] [address] [place] [address], [place] [id number] Aug, [facility] [address] [id number] [address] [place] [address], [place] [address] Aug, [facility] [address] [id number] [address] [place] [address], [place] [id number] Aug, [facility] [address] [id number] [address] [place] [address], [place] [address] Aug, [facility] [address] [id number] [address] [place] [address], [place] [id number] Aug, [facility] [address] [id number] [address] [place] [address], [place] [address] Aug, [facility] [address] [id number] [address] [place] [address], [place] [id number] Aug, [facility] [address] [id number] [address] [place] [address], [place] [id number] Aug, [facility] [address] [id number] [address] [place] [address], [place] [id number] Aug, [facility] [address] [id number] [address] [place] [address], [place] [id number] Jul, [facility] [address] [id number] [address] [place] [address], [place] [id number] Jul, [facility] [address] [id number] [address] [place] [address], [place] [id number] Jul, [facility] [address] [id number] [address] [place] [address], [place] [id number] 23 Jul, 2014 [facility] [address] [id number] [address] [place] [address], [place] [id number] 23 Jul, 2014 [facility] [address] [id number] [address] [place] [address], [place] [id number] 23 Jul, 2014 [facility] [address] [id number] [address] [place] [address], [place] [id number] 23 Jul, 2014 [facility] [address] [id number] [address] [place] [address], [place] [id number] 23 Jul, 2014 [facility] [address] [id number] [address] [place] [address], [place] [id number] 20 Jul, 2014 [facility] [address] [id number] [address] [place] [address], [place] [id number] 20 Jul, 2014 [facility] [address] [id number] [address] [place] [id number] 19 Jul, 2014 [facility] [address] [id number] [address] [place] [address], [place] [id number] 19 Jul, 2014 [facility] [address] [id number] [address] [place] [id number] 17 Jul, 2014 [facility] [address] [id number] [address] [place] [id number] 17 Jul, 2014 [facility] [address] [id number] [address] [place] [id number] 16 Jul, 2014 [facility] [address] [id number] [address] [place] [address], [place] [id number] 16 Jul, 2014 [facility] [address] [id number] [address] [place] [id number] 16 Jul, 2014 [facility] [address] [id number] [address] [place] [id number] 16 Jul, 2014 [facility] [address] [id number] [address] [place] [address], [place] [id number] 13 Jul, 2014 [facility] [address] [id number] [address] [place] [address], [place] [id number] Jul, 2014 [facility] [address] [id number] [address] [place] [address], [place] [id number] Jul, 2014 [facility] [address] [id number] [address] [place] [address], [place] [id number] Jul, 2014 [facility] [address] [id number] [address] [place] [address], [place] [id number] Jul, 2014 [facility] [address] [id number] [address] [place] [address], [place] [id number] Jul, [facility] [address] [id number] [address] [place] [address], [place] [id number] Jul, 2014 [facility] [address] [id number] [address] [place] [address], [place] [id number] Jul, [facility] [address] [id number] [address] [place] [address], [place] [id number] Jul, [facility] [address] [id number] [address] [place] [address], [place] [id number] Jul, [facility] [address] [id number] [address] [place] [id number] Jul, [facility] [address] [id number] [address] [place] [id number] Jul, [facility] [address] [id number] [address] [place] [address], [place] [id number] Jun, [facility] [address] [id number] [address] [place] [id number] Jun, [facility] [address] [id number] [address] [place] [id number] Jun, [facility] [address] [id number] [address] [place] [id number] Jun, [facility] [address] [id number] [address] [place] [address], [place] [id number] Jun, [facility] [address] [id number] [address] [place] [address], [place] [address] Jun, [facility] [address] [id number] [address] [place] [address], [place] [id number] Jun, [facility] [address] [id number] [address] [place] [address], [place] [id number] Jun, [facility] [address] [id number] [address] [place] [address], [place] [id number] Jun, [facility] [address] [id number] [address] [place] [address], [place] [id number] Jun, [facility] [address] [id number] [address] [place] [address], [place] [address] Jun, [facility] [address] [id number] [address] [place] [address], [place] [address] Jun, [facility] [address] [id number] [address] [place] [address], [place] [id number] Jun, [facility] [address] [id number] [address] [place] [address], [place] [id number] Jun, [facility] [address] [id number] [address] [place] [address], [place] [id number] Jun, [facility] [address] [id number] [address] [place] [address], [place] [address] Jun, [facility] [address] [id number] [address] [place] [address], [place] [address] Jun, [facility] [address] [id number] [address] [place] [address], [place] [id number] Jun, [facility] [address] [id number] [address] [place] [address], [place] [address] Jun, [facility] [address] [id number] [address] [place] [address], [place] [address] Jun, [facility] [address] [id number] [address] [place] [address], [place] [id number] May, [facility] [address] [id number] [address] [place] [address], [place] [id number] May, [facility] [address] [id number] [address] [place] [address], [place] [id number] May, [facility] [address] [id number] [address] [place] [address], [place] [address] May, [facility] [address] [id number] [address] [place] [address], [place] [address] May, [facility] [address] [id number] [address] [place] [address], [place] [address] May, [facility] [address] [id number] [address] [place] [address], [place] [id number] May, [facility] [address] [id number] [address] [place] [address], [place] [id number] May, [facility] [address] [id number] [address] [place] [address], [place] [address] May, [facility] [address] [id number] [address] [place] [address], [place] [id number] May, [facility] [address] [id number] [address] [place] [address], [place] [id number] May, [facility] [address] [id number] [address] [place] [address], [place] [id number] 18 May, 2014 [facility] [address] [id number] [address] [place] [address], [place] [id number] 18 May, 2014 [facility] [address] [id number] [address] [place] [address], [place] [id number] 17 May, 2014 [facility] [address] [id number] [address] [place] [address], [place] [id number] 16 May, 2014 [facility] [address] [id number] [facility] [place] [address] 16 May, 2014 [facility] [address] [id number] [facility] [place] [address] 15 May, 2014 [facility] [address] [id number] [address] [place] [address], [place] [id number] 15 May, 2014 [facility] [address] [id number] [address] [place] [address], [place] [id number] May, [facility] [address] [id number] [address] [place] [address], [place] [address] May, [facility] [address] [id number] [address] [place] [address], [place] [address] May, [facility] [address] [id number] [address] [place] [address], [place] [address] May, [facility] [address] [id number] [address] [place] [address], [place] [id number] May, [facility] [address] [id number] [address] [place] [address], [place] [address] May, [facility] [address] [id number] [address] [place] [address], [place] [address] May, [facility] [address] [id number] [address] [place] [address], [place] [address] May, [facility] [address] [id number] [address] [place] [address], [place] [address] May, [facility] [address] [id number] [address] [place] [address], [place] [address] May, [facility] [address] [id number] [address] [place] [address], [place] [address] May, [facility] [address] [id number] [address] [place] [address], [place] [id number] May, [facility] [address] [id number] [address] [place] [address], [place] [id number] 05 May, 2014 [facility] [address] [id number] [address] [place] [address], [place] [id number] May, [facility] [address] [id number] [address] [place] [address], [place] [address] May, [facility] [address] [id number] [address] [place] [address], [place] [address] May, [facility] [address] [id number] [address] [place] [address], [place] [id number] Apr, [facility] [address] [id number] [address] [place] [address], [place] [id number] Apr, [facility] [address] [id number] [address] [place] [address], [place] [address] Apr, [facility] [address] [id number] [address] [place] [address], [place] [id number] Apr, [facility] [address] [id number] [address] [place] [address], [place] [address] Apr, [facility] [address] [id number] [address] [place] [address], [place] [id number] Apr, [facility] [address] [id number] [address] [place] [address], [place] [id number] Apr, [facility] [address] [id number] [address] [place] [address], [place] [address] Apr, [facility] [address] [id number] [address] [place] [address], [place] [id number] Apr, [facility] [address] [id number] [address] [place] [address], [place] [address] Apr, [facility] [address] [id number] [address] [place] [address], [place] [id number] Mar, [facility] [address] [id number] [address] [place] [address], [place] [address] Mar, [facility] [address] [id number] [address] [place] [address], [place] [id number] 31 Mar, 2013 [facility] [address] [id number] [address] [place] [address], [place] [id number] Mar, 2013 [facility] [address] [id number] [address] [place] [address], [place] [id number] 30 Mar, 2014 [facility] [address] [id number] [address] [place] [address], [place] [id number] 30 Mar, 2014 [facility] [address] [id number] [address] [place] [address], [place] [id number] Mar, [facility] [address] [id number] [address] [place] [address], [place] [id number] Mar, [facility] [address] [id number] [address] [place] [address], [place] [id number] Mar, [facility] [address] [id number] [address] [place] [address], [place] [id number] Mar, [facility] [address] [id number] [address] [place] [address], [place] [id number] Mar, [facility] [address] [id number] [address] [place] [address], [place] [id number] Mar, [facility] [address] [id number] [address] [place] [address], [place] [id number] Mar, [facility] [address] [id number] [address] [place] [address], [place] [id number] Mar, [facility] [address] [id number] [address] [place] [address], [place] [id number] Mar, [facility] [address] [id number] [address] [place] [address], [place] [id number] Mar, [facility] [address] [id number] [address] [place] [address], [place] [id number] Mar, [facility] [address] [id number] [address] [place] [id number] Mar, [facility] [address] [id number] [address] [place] [address], [place] [id number] Mar, [facility] [address] [id number] [address] [place] [address], [place] [id number] Mar, [facility] [address] [id number] [address] [place] [address], [place] [id number] 05 Sep, 2013 [facility] [address] [id number] [address] [place] [address], [place] [id number] 05 Sep, 2013 [facility] [address] [id number] [address] [place] [address], [place] [id number] 04 Feb, 2013 [facility] [address] [id number] [address] [place] [address], [place] [id number] 04 Feb, 2013 [facility] [address] [id number] [address] [place] [address], [place] [id number] Feb, 2013 [facility] [address] [id number] [address] [place] [address], [place] [id number] Feb, 2013 [facility] [address] [id number] [address] [place] [address], [place] [id number] Feb, 2013 [facility] [address] [id number] [address] [place] [address], [place] [id number] Feb, 2013 [facility] [address] [id number] [address] [place] [address], [place] [id number] Feb, 2013 [facility] [address] [id number] [address] [place] [address], [place] [id number] Feb, 2013 [facility] [address] [id number] [address] [place] [address], [place] [id number] Jan, [facility] [address] [id number] [address] [place] [address], [place] [id number] Jan, [facility] [address] [id number] [address] [place] [address], [place] [id number] Jan, [facility] [address] [id number] [facility] [place] [id number] Jan, [facility] [address] [id number] [facility] [place] [id number] Jan, [facility] [address] [id number] [facility] [place] [id number] Jan, [facility] [address] [id number] [address] [place] [address], [place] [id number] Jan, [facility] [address] [id number] [address] [place] [address], [place] [id number] Jan, [facility] [address] [id number] [address] [place] [address], [place] [id number] Jan, [facility] [address] [id number] [address] [place] [address], [place] [id number] Jan, [facility] [address] [id number] [address] [place] [address], [place] [id number] Jan, [facility] [address] [id number] [address] [place] [address], [place] [id number] Jan, [facility] [address] [id number] [address] [place] [address], [place] [id number] Dec, [facility] [address] [id number] [address] [place] [address], [place] [id number] Dec, [facility] [address] [id number] [address] [place] [address], [place] [id number] Dec, [facility] [address] [id number] [address] [place] [address], [place] [id number] Dec, [facility] [address] [id number] [address] [place] [address], [place] [id number] Dec, [facility] [address] [id number] [address] [place] [address], [place] [id number] Dec, [facility] [address] [id number] [address] [place] [address], [place] [address] Dec, [facility] [address] [id number] [address] [place] [address], [place] [id number] Dec, 2013 [facility] [address] [id number] [address] [place] [address], [place] [id number] Dec, [facility] [address] [id number] [address] [place] [address], [place] [id number] Dec, [facility] [address] [id number] [address] [place] [address], [place] [address] Dec, [facility] [address] [id number] [address] [place] [address], [place] [id number] Dec, [facility] [address] [id number] [address] [place] [address], [place] [address] Nov, [facility] [address] [id number] [address] [place] [address], [place] [address] Nov, [facility] [address] [id number] [address] [place] [address], [place] [id number] Nov, [facility] [address] [id number] [address] [place] [address], [place] [address] Nov, [facility] [address] [id number] [address] [place] [address], [place] [address] Nov, [facility] [address] [id number] [address] [place] [address], [place] [id number] Nov, [facility] [address] [id number] [address] [place] [address], [place] [address] Nov, [facility] [address] [id number] [address] [place] [address], [place] [id number] Nov, [facility] [address] [id number] [address] [place] [address], [place] [id number] Nov, [facility] [address] [id number] [address] [place] [address], [place] [address] Nov, [facility] [address] [id number] [address] [place] [address], [place] [address] Nov, [facility] [address] [id number] [address] [place] [address], [place] [address] Nov, [facility] [address] [id number] [address] [place] [address], [place] [id number] Nov, [facility] [address] [id number] [address] [place] [address], [place] [address] Nov, [facility] [address] [id number] [address] [place] [address], [place] [address] October, [facility] [address] [id number] [address] [place] [address], [place] [id number] October, [facility] [address] [id number] [address] [place] [address], [place] [address] October, [facility] [address] [id number] [address] [place] [address], [place] [id number] October, [facility] [address] [id number] [address] [place] [address], [place] [id number] October, [facility] [address] [id number] [address] [place] [address], [place] [address] October, [facility] [address] [id number] [address] [place] [address], [place] [id number] October, [facility] [address] [id number] [address] [place] [address], [place] [id number] October, [facility] [address] [id number] [address] [place] [address], [place] [id number] October, [facility] [address] [id number] [address] [place] [address], [place] [id number] October, [facility] [address] [id number] [address] [place] [address], [place] [id number] October, [facility] [address] [id number] [address] [place] [address], [place] [id number] October, [facility] [address] [id number] [facility] [place] [address] Sep, [facility] [address] [id number] [facility] [place] [address] Sep, [facility] [address] [id number] [facility] [place] [address] Sep, [facility] [address] [id number] [address] [place] [address], [place] [id number] Sep, [facility] [address] [id number] [address] [place] [address], [place] [id number] Sep, [facility] [address] [id number] [address] [place] [address], [place] [id number] Sep, [facility] [address] [id number] [address] [place] [address], [place] [id number] Aug, [facility] [address] [id number] [address] [place] [address], [place] [address] Aug, [facility] [address] [id number] [address] [place] [address], [place] [address] Aug, [facility] [address] [id number] [address] [place] [address], [place] [id number] Aug, [facility] [address] [id number] [address] [place] [address], [place] [id number] Aug, [facility] [address] [id number] [address] [place] [address], [place] [id number] Aug, [facility] [address] [id number] [address] [place] [address], [place] [id number] Jul, [facility] [address] [id number] [address] [place] [address], [place] [id number] Jul, [facility] [address] [id number] [address] [place] [address], [place] [id number] Jul, [facility] [address] [id number] [address] [place] [address], [place] [id number] Jul, [facility] [address] [id number] [address] [place] [address], [place] [address] Jul, [facility] [address] [id number] [address] [place] [address], [place] [address] Jul, [facility] [address] [id number] [address] [place] [address], [place] [id number] Jul, [facility] [address] [id number] [address] [place] [address], [place] [id number] Jul, [facility] [address] [id number] [address] [place] [address], [place] [id number] Jul, [facility] [address] [id number] [address] [place] [address], [place] [id number] Jul, [facility] [address] [id number] [address] [place] [address], [place] [id number] Jun, [facility] [address] [id number] [address] [place] [address], [place] [id number] Jun, [facility] [address] [id number] [address] [place] [address], [place] [address] Jun, [facility] [address] [id number] [address] [place] [address], [place] [address] Jun, [facility] [address] [id number] [address] [place] [address], [place] [id number] Jun, [facility] [address] [id number] [address] [place] [address], [place] [id number] Jun, [facility] [address] [id number] [address] [place] [address], [place] [id number] Jun, [facility] [address] [id number] [address] [place] [address], [place] [id number] Jun, [facility] [address] [id number] [address] [place] [address], [place] [id number] May, [facility] [address] [id number] [address] [place] [address], [place] [address] May, [facility] [address] [id number] [address] [place] [address], [place] [id number] May, [facility] [address] [id number] [address] [place] [address], [place] [id number] May, [facility] [address] [id number] [address] [place] [address], [place] [id number] May, [facility] [address] [id number] [address] [place] [address], [place] [id number] May, [facility] [address] [id number] [address] [place] [address], [place] [id number] May, [facility] [address] [id number] [address] [place] [address], [place] [id number] May, [facility] [address] [id number] [address] [place] [address], [place] [id number] Apr, [facility] [address] [id number] [address] [place] [address], [place] [id number] Apr, [facility] [address] [id number] [address] [place] [address], [place] [address] Apr, [facility] [address] [id number] [address] [place] [address], [place] [id number] Apr, [facility] [address] [id number] [address] [place] [address], [place] [id number] Apr, [facility] [address] [id number] [address] [place] [address], [place] [id number] Apr, [facility] [address] [id number] [address] [place] [address], [place] [address] Mar, [facility] [address] [id number] [address] [place] [address], [place] [id number] Mar, [facility] [address] [id number] [address] [place] [address], [place] [id number] Mar, [facility] [address] [id number] [address] [place] [address], [place] [address] Mar, [facility] [address] [id number] [address] [place] [address], [place] [id number] Mar, [facility] [address] [id number] [address] [place] [address], [place] [id number] Mar, [facility] [address] [id number] [address] [place] [address], [place] [id number] Mar, [facility] [address] [id number] [address] [place] [address], [place] [id number] 30 Feb, 2013 [facility] [address] [id number] [address] [place] [address], [place] [id number] 30 Feb, 2013 [facility] [address] [id number] [address] [place] [address], [place] [address] Feb, [facility] [address] [id number] [address] [place] [address], [place] [id number] Feb, [facility] [address] [id number] [address] [place] [address], [place] [address] Feb, [facility] [address] [id number] [address] [place] [address], [place] [id number] Feb, [facility] [address] [id number] [address] [place] [address], [place] [id number] Jan, [facility] [address] [id number] [address] [place] [address], [place] [id number] Jan, [facility] [address] [id number] [address] [place] [address], [place] [id number] Jan, [facility] [address] [id number] [address] [place] [address], [place] [id number] Jan, [facility] [address] [id number] [address] [place] [address], [place] [id number] Jan, [facility] [address] [id number] [address] [place] [address], [place] [address] Jan, [facility] [address] [id number] [address] [place] [address], [place] [address] Jan, [facility] [address] [id number] [address] [place] [address], [place] [address] Jan, [facility] [address] [id number] [address] [place] [address], [place] [id number] Jan, [facility] [address] [id number] [address] [place] [address], [place] [id number] Dec, [facility] [address] [id number] [address] [place] [address], [place] [id number] Dec, [facility] [address] [id number] [address] [place] [address], [place] [id number] Dec, [facility] [address] [id number] [address] [place] [address], [place] [id number] Dec, [facility] [address] [id number] [address] [place] [address], [place] [id number] Dec, [facility] [address] [id number] [address] [place] [address], [place] [id number] Dec, [facility] [address] [id number] [address] [place] [address], [place] [id number] Dec, [facility] [address] [id number] [address] [place] [address], [place] [id number] Dec, [facility] [address] [id number] [address] [place] [address], [place] [id number] Dec, [facility] [address] [id number] [address] [place] [address], [place] [id number] Dec, [facility] [address] [id number] [address] [place] [address], [place] [address] Dec, [facility] [address] [id number] [address] [place] [address], [place] [id number] Dec, [facility] [address] [id number] [address] [place] [address], [place] [id number] Dec, [facility] [address] [id number] [address] [place] [address], [place] [address] Nov, [facility] [address] [id number] [address] [place] [address], [place] [id number] Nov, [facility] [address] [id number] [address] [place] [address], [place] [address] Nov, [facility] [address] [id number] [address] [place] [address], [place] [address] Nov, [facility] [address] [id number] [address] [place] [address], [place] [id number] October, [facility] [address] [id number] [address] [place] [address], [place] [id number] October, [facility] [address] [id number] [address] [place] [address], [place] [address] October, [facility] [address] [id number] [address] [place] [address], [place] [address] October, [facility] [address] [id number] [address] [place] [address], [place] [id number] October, [facility] [address] [id number] [address] [place] [address], [place] [address] October, [facility] [address] [id number] [address] [place] [address], [place] [id number] Sep, [facility] [address] [id number] [address] [place] [address], [place] [id number] Sep, [facility] [address] [id number] [address] [place] [address], [place] [id number] Sep, [facility] [address] [id number] [address] [place] [address], [place] [id number] Sep, [facility] [address] [id number] [address] [place] [address], [place] [id number] 19 Sep, 2012 [facility] [address] [id number] [address] [place] [address], [place] [id number] 16 Sep, 2012 [facility] [address] [id number] [address] [place] [address], [place] [id number] Sep, [facility] [address] [id number] [address] [place] [address], [place] [id number] Sep, [facility] [address] [id number] [address] [place] [address], [place] [id number] Sep, [facility] [address] [id number] [address] [place] [address], [place] [id number] Sep, [facility] [address] [id number] [address] [place] [address], [place] [id number] Sep, [facility] [address] [id number] [address] [place] [address], [place] [id number] Aug, [facility] [address] [id number] [address] [place] [address], [place] [id number] Aug, [facility] [address] [id number] [address] [place] [address], [place] [id number] 25 Aug, 2012 [facility] [address] [id number] [address] [place] [address], [place] [id number] Aug, [facility] [address] [id number] [address] [place] [address], [place] [id number] 19 Aug, 2012 [facility] [address] [id number] [address] [place] [address], [place] [id number] 18 Aug, 2012 [facility] [address] [id number] [address] [place] [address], [place] [id number] 17 Aug, 2012 [facility] [address] [id number] [address] [place] [address], [place] [id number] 15 Aug, 2012 [facility] [address] [id number] [address] [place] [address], [place] [id number] 15 Aug, 2012 [facility] [address] [id number] [address] [place] [address], [place] [id number] Aug, [facility] [address] [id number] [address] [place] [address], [place] [id number] Aug, [facility] [address] [id number] [address] [place] [address], [place] [id number] Aug, [facility] [address] [id number] [address] [place] [address], [place] [id number] Jul, [facility] [address] [id number] [address] [place] [address], [place] [id number] Jul, [facility] [address] [id number] [address] [place] [address], [place] [id number] Jul, [facility] [address] [id number] [address] [place] [address], [place] [id number] Jul, [facility] [address] [id number] [address] [place] [address], [place] [id number] Jul, [facility] [address] [id number] [address] [place] [address], [place] [id number] Jul, [facility] [address] [id number] [address] [place] [address], [place] [id number] Jul, [facility] [address] [id number] [address] [place] [address], [place] [id number] Jul, [facility] [address] [id number] [address] [place] [address], [place] [id number] Jul, [facility] [address] [id number] [address] [place] [address], [place] [id number] Jul, [facility] [address] [id number] [address] [place] [address], [place] [address] May, [facility] [address] [id number] [id number] May, [facility] [address] [id number] [address] [address] May, [facility] [address] [id number] [address] [place] [id number] May, [facility] [address] [id number] [address] [place] [id number] May, [facility] [address] [id number] [address] [place] [id number] Apr, [facility] [address] [id number] [place] [id number] Apr, [facility] [address] [id number] [address] [place] [id number] Apr, [facility] [address] [id number] [address] [place] [id number] Mar, [facility] [address] [id number] [place] [id number] Mar, [facility] [address] [id number] [address] [place] [id number] Mar, [facility] [address] [id number] [place] [id number] Feb, [facility] [address] [id number] [address] [place] [id number] Feb, [facility] [address] [id number] [address] [place] [id number] Feb, [facility] [address] [id number] [place] [id number] Feb, [facility] [address] [id number] [place] [id number] Feb, [facility] [place] [address] [id number] [place] [id number] Jan, [facility] [address] [id number] [address] [place] [id number] Jan, [facility] [place] [address] [id number] [place] [id number] Jan, [facility] [address] [id number] [place] [id number] Jan, [facility] [address] [id number] [place] [id number] Jan, [facility] [address] [facility] [id number] [address] [address] Jan, [facility] [address] [facility] [id number] [address] [place] [id number] Jan, [facility] [address] [facility] [id number] [address] [place] [id number] Aug, [facility] [address] [id number] [place] [id number] Aug, [facility] [address] [facility] [id number] [address] [place] [id number] Jul, [facility] [address] [facility] [id number] [address] [place] [id number] Jul, [facility] [address] [facility] [id number] [address] [place] [id number] Jul, [facility] [address] [id number] [place] [id number] Jul, 2011 [facility] [address] [facility] [id number] [address] [place] [id number] Jul, [facility] [address] [id number] [place] [id number] Jul, [facility] [address] [facility] [id number] [address] [place] [id number] Jul, [facility] [address] [id number] [place] [id number] Jul, [facility] [address] [id number] [place] [id number] Jul, [facility] [address] [id number] [place] [id number] Jul, [facility] [address] [facility] [id number] [address] [place] [id number] May, [facility] [address] [id number] [address] [place] [id number] May, [facility] [address] [id number] [address] [place] [id number] May, [facility] [address] [id number] [address] [place] [id number] Apr, [facility] [address] [id number] [address] [place] [id number] Jan, [facility] [address] [id number] [address] [place] [id number] Jan, [facility] [address] [id number] [address] [place] [id number] Dec, [facility] [address] [id number] [address] [place] [id number] Dec, [facility] [address] [id number] [address] [place] [id number] May, [facility] [address] [id number] [address] [place] [id number] Mar, [facility] [address] [id number] [address] [place] [id number] Mar, [facility] [address] [id number] [address] [place] [id number] 14 Jan, 2009 IMMUNIZATIONS No Known Immunizations [...]
--- OUTSIDE RECORDS SUMMARY | 2020-01-28 13:11 | XMS REPORT ---
Author Author Heydi Candelario Doctor Organization [facility] Address Unknown Phone Unavailable Care Team Providers Care Remote Broadcast Engineer Name Role Phone Migration, Doctor Unavailable Unavailable PROBLEMS Type Condition ICD9-CM Code [id number] Code Onset Dates Condition S tatus SNOMED Code Problem Chronic pain syndrome G89.4 Active 504656533 Problem Sore throat J02.9 Active 49738459 3 Problem Choriocarcinoma C58 Active 1881 30452 Problem longterm current use of anticoagulant Z79.01 Active 188598117 Problem History of venous thromboembolism V12.51 Active 170485208 Problem Cellulitis of unspecified part of limb L03.119 Active 168354955 Problem Gastroesophageal reflux disease without esophagitis K21.9 Active 979216772 Problem History of pulmonary embolism Z86.711 Active 511593715 Problem Pseudotumor cerebri G93.2 Active 67945326 Problem History of DVT (deep vein thrombosis) Z86.718 Active 025646259 ALLERGIES No Information ENCOUNTERS Encounter Location Date Diagnosis [place] [address] [place] [id number] [address] [place] [id number] 14 Nov, 2019 Encounter for screening labo ratory testing for COVID-19 virus Z11.59 [place] [address] [place] [id number] [address] [place] [address] Apr, 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 manager (current) use of 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 Z79.01 [place] [id number] [facility] [id number] [address] [place] [address] Apr, longterm current use of ant icoagulant Z79.01 [place] [address] [facility] [id number] [address] [place] [address] Apr, Cellulitis of unspecified pa rt of limb L03.119 ; Allergic contact dermatitis due to adhesives L23.1 and Chronic pain syndrome G89.4 [place] [address] [address] Apr, [facility] [address] [address] Apr, longterm current use of ant icoagulant Z79.01 ; Cellulitis of unspecified part of limb L03.119 ; Chronic pain syndrome G89.4 and Anxiety F41.9 [place] [address] [address] Apr, [facility] [address] [address] Apr, [place] [address] [address] Mar, [place] [address] [address] Mar, [place] [address] [address] Mar, Sore throat J02.9 ; Gastroes ophageal reflux disease without esophagitis K21.9 ; Pseudotumor cerebri G93.2 ; Chronic pain syndrome G89.4 ; Choriocarcinoma C58 ; History of pulmonary embolism Z86.711 ; History of DVT (deep vein thrombosis) Z86.718 ; Anxiety F41.9 and Tachycardia R00.0 [place] [address] [place] [id number] [address] [place] [address] Feb, Anxiety 300.00 and Chronic p ain 338.29 [facility] [address] [place] [id number] [address] [place] [phone] Feb, [facility] [address] [address] Feb, [facility] [address] [place] [id number] [address] [place] [address] Jan, 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 manager current use of ant icoagulant therapy V58.61 and Dysuria 788.1 [place] [address] [place] [id number] [address] [place] [address] Jan, Dysuria 788.1 [place] [address] [address] Jan, Anxiety 300.00 and Chronic p ain 338.29 [place] [address] [address] Jan, [place] [address] [address] Jan, [place] [address] [address] Jan, [place] [address] [address] Dec, Weakness 780.79 [place] [address] [address] Dec, 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 manager current use of ant icoagulant therapy V58.[address] [address] Dec, Palpitations 785.1 ; Tremor 781.0 ; Weakness 780.79 ; longterm current use of anticoagulant therapy V58.61 and Yeast vaginitis 112.1 [place] [address] [place] [id number] [place] [address] Dec, [place] [address] [address] Dec, Cervicalgia 723.1 ; Tachycar yoseph 785.0 ; Pseudotumor cerebri 348.2 and History of venous thromboembolism V12.51 [place] [address] [address] Nov, [place] [address] [place] [id number] [address] [place] [address] Nov, [place] [address] [place] [id number] [place] [address] 24 Nov, 2014 Tachycardia 785.0 ; Pseudotu mor cerebri 348.2 ; Anxiety 300.00 and History of venous thromboembolism V12.51 [facility] [address] [id number] [address] [place] [address] 19 Nov, 2014 [facility] [address] [id number] [address] [place] [address] 18 Nov, 2014 [facility] [address] [id number] [address] [place] [address] 16 Nov, 2014 [facility] [address] [id number] [address] [place] [address] Nov, [facility] [address] [facility] [id number] [address] [place] [address] Nov, [facility] [address] [facility] [id number] [address] [place] [address] Nov, [facility] [address] [id number] [address] [place] [address] Nov, [facility] [address] [facility] [id number] [address] [place] [address] October, [facility] [address] [facility] [id number] [address] [place] [address] October, [facility] [address] [facility] [id number] [address] [place] [address] October, Pain in thoracic spine 724.1 and Tachycardia 785.0 [facility] [address] [id number] [address] [place] [address] October, [facility] [address] [facility] [id number] [address] [place] [address] October, [facility] [address] [facility] [id number] [address] [place] [address] 14 Sep, 2014 [facility] [address] [facility] [id number] [address] [place] [address] Sep, [facility] [address] [id number] [address] [place] [address], [place] [address] Aug, [facility] [address] [id number] [address] [place] [address], [place] [address] Aug, [facility] [address] [id number] [address] [place] [address], [place] [address] Aug, [facility] [address] [id number] [address] [place] [address], [place] [address] Aug, [facility] [address] [id number] [address] [place] [address], [place] [address] Aug, [facility] [address] [id number] [address] [place] [address], [place] [address] Aug, [facility] [address] [id number] [address] [place] [address], [place] [address] Aug, [facility] [address] [id number] [address] [place] [address], [place] [address] Aug, [facility] [address] [id number] [address] [place] [address], [place] [address] Aug, [facility] [address] [id number] [address] [place] [address], [place] [address] Aug, [facility] [address] [id number] [address] [place] [address], [place] [address] Aug, [facility] [address] [id number] [address] [place] [address], [place] [address] Aug, [facility] [address] [id number] [address] [place] [address], [place] [address] Jul, [facility] [address] [id number] [address] [place] [address], [place] [address] Jul, [facility] [address] [id number] [address] [place] [address], [place] [address] Jul, [facility] [address] [id number] [address] [place] [address], [place] [address] 23 Jul, 2014 [facility] [address] [id number] [address] [place] [address], [place] [address] 23 Jul, 2014 [facility] [address] [id number] [address] [place] [address], [place] [address] 23 Jul, 2014 [facility] [address] [id number] [address] [place] [address], [place] [address] 23 Jul, 2014 [facility] [address] [id number] [address] [place] [address], [place] [address] 23 Jul, 2014 [facility] [address] [id number] [address] [place] [address], [place] [address] 20 Jul, 2014 [facility] [address] [id number] [address] [place] [address], [place] [address] 20 Jul, 2014 [facility] [address] [id number] [address] [place] [id number] 19 Jul, 2014 [facility] [address] [id number] [address] [place] [address], [place] [address] 19 Jul, 2014 [facility] [address] [id number] [address] [place] [phone] 17 Jul, 2014 [facility] [address] [id number] [address] [place] [id number] 17 Jul, 2014 [facility] [address] [id number] [address] [place] [address] 16 Jul, 2014 [facility] [address] [id number] [address] [place] [address], [place] [address] 16 Jul, 2014 [facility] [address] [id number] [address] [place] [id number] 16 Jul, 2014 [facility] [address] [id number] [address] [place] [address] 16 Jul, 2014 [facility] [address] [id number] [address] [place] [address], [place] [address] 13 Jul, 2014 [facility] [address] [id number] [address] [place] [address], [place] [address] Jul, 2014 [facility] [address] [id number] [address] [place] [address], [place] [address] Jul, 2014 [facility] [address] [id number] [address] [place] [address], [place] [address] Jul, 2014 [facility] [address] [id number] [address] [place] [address], [place] [address] Jul, 2014 [facility] [address] [id number] [address] [place] [address], [place] [address] Jul, [facility] [address] [id number] [address] [place] [address], [place] [address] Jul, 2014 [facility] [address] [id number] [address] [place] [address], [place] [address] Jul, [facility] [address] [id number] [address] [place] [address], [place] [address] Jul, [facility] [address] [id number] [address] [place] [address], [place] [address] Jul, [facility] [address] [id number] [address] [place] [address] Jul, [facility] [address] [id number] [address] [place] [address] Jul, [facility] [address] [id number] [address] [place] [address], [place] [address] Jun, [facility] [address] [id number] [address] [place] [address] Jun, [facility] [address] [id number] [address] [place] [id number] Jun, [facility] [address] [id number] [address] [place] [address] Jun, [facility] [address] [id number] [address] [place] [address], [place] [address] Jun, [facility] [address] [id number] [address] [place] [address], [place] [address] Jun, [facility] [address] [id number] [address] [place] [address], [place] [address] Jun, [facility] [address] [id number] [address] [place] [address], [place] [address] Jun, [facility] [address] [id number] [address] [place] [address], [place] [address] Jun, [facility] [address] [id number] [address] [place] [address], [place] [address] Jun, [facility] [address] [id number] [address] [place] [address], [place] [address] Jun, [facility] [address] [id number] [address] [place] [address], [place] [address] Jun, [facility] [address] [id number] [address] [place] [address], [place] [address] Jun, [facility] [address] [id number] [address] [place] [address], [place] [address] Jun, [facility] [address] [id number] [address] [place] [address], [place] [address] Jun, [facility] [address] [id number] [address] [place] [address], [place] [address] Jun, [facility] [address] [id number] [address] [place] [address], [place] [address] Jun, [facility] [address] [id number] [address] [place] [address], [place] [address] Jun, [facility] [address] [id number] [address] [place] [address], [place] [address] Jun, [facility] [address] [id number] [address] [place] [address], [place] [address] Jun, [facility] [address] [id number] [address] [place] [address], [place] [address] May, [facility] [address] [id number] [address] [place] [address], [place] [address] May, [facility] [address] [id number] [address] [place] [address], [place] [address] May, [facility] [address] [id number] [address] [place] [address], [place] [address] May, [facility] [address] [id number] [address] [place] [address], [place] [address] May, [facility] [address] [id number] [address] [place] [address], [place] [address] May, [facility] [address] [id number] [address] [place] [address], [place] [address] May, [facility] [address] [id number] [address] [place] [address], [place] [address] May, [facility] [address] [id number] [address] [place] [address], [place] [address] May, [facility] [address] [id number] [address] [place] [address], [place] [address] May, [facility] [address] [id number] [address] [place] [address], [place] [address] May, [facility] [address] [id number] [address] [place] [address], [place] [address] 18 May, 2014 [facility] [address] [id number] [address] [place] [address], [place] [address] 18 May, 2014 [facility] [address] [id number] [address] [place] [address], [place] [address] 17 May, 2014 [facility] [address] [id number] [address] [place] [address], [place] [address] 16 May, 2014 [facility] [address] [id number] [facility] [address] 16 May, 2014 [facility] [address] [id number] [facility] [address] 15 May, 2014 [facility] [address] [id number] [address] [place] [address], [place] [address] 15 May, 2014 [facility] [address] [id number] [address] [place] [address], [place] [address] May, [facility] [address] [id number] [address] [place] [address], [place] [address] May, [facility] [address] [id number] [address] [place] [address], [place] [address] May, [facility] [address] [id number] [address] [place] [address], [place] [address] May, [facility] [address] [id number] [address] [place] [address], [place] [address] May, [facility] [address] [id number] [address] [place] [address], [place] [address] May, [facility] [address] [id number] [address] [place] [address], [place] [address] May, [facility] [address] [id number] [address] [place] [address], [place] [address] May, [facility] [address] [id number] [address] [place] [address], [place] [address] May, [facility] [address] [id number] [address] [place] [address], [place] [address] May, [facility] [address] [id number] [address] [place] [address], [place] [address] May, [facility] [address] [id number] [address] [place] [address], [place] [address] May, [facility] [address] [id number] [address] [place] [address], [place] [address] 05 May, 2014 [facility] [address] [id number] [address] [place] [address], [place] [address] May, [facility] [address] [id number] [address] [place] [address], [place] [address] May, [facility] [address] [id number] [address] [place] [address], [place] [address] May, [facility] [address] [id number] [address] [place] [address], [place] [address] Apr, [facility] [address] [id number] [address] [place] [address], [place] [address] Apr, [facility] [address] [id number] [address] [place] [address], [place] [address] Apr, [facility] [address] [id number] [address] [place] [address], [place] [address] Apr, [facility] [address] [id number] [address] [place] [address], [place] [address] Apr, [facility] [address] [id number] [address] [place] [address], [place] [address] Apr, [facility] [address] [id number] [address] [place] [address], [place] [address] Apr, [facility] [address] [id number] [address] [place] [address], [place] [address] Apr, [facility] [address] [id number] [address] [place] [address], [place] [address] Apr, [facility] [address] [id number] [address] [place] [address], [place] [address] Apr, [facility] [address] [id number] [address] [place] [address], [place] [address] Mar, [facility] [address] [id number] [address] [place] [address], [place] [id number] Mar, [facility] [address] [id number] [address] [place] [address], [place] [id number] 31 Mar, 2013 [facility] [address] [id number] [address] [place] [address], [place] [id number] Mar, 2013 [facility] [address] [id number] [address] [place] [address], [place] [id number] 30 Mar, 2014 [facility] [address] [id number] [address] [place] [address], [place] [id number] 30 Mar, 2014 [facility] [address] [id number] [address] [place] [address], [place] [id number] Mar, [facility] [address] [id number] [address] [place] [address], [place] [id number] Mar, [facility] [address] [id number] [address] [place] [address], [place] [id number] Mar, [facility] [address] [id number] [address] [place] [address], [place] [id number] Mar, [facility] [address] [id number] [address] [place] [address], [place] [id number] Mar, [facility] [address] [id number] [address] [place] [address], [place] [id number] Mar, [facility] [address] [id number] [address] [place] [address], [place] [address] Mar, [facility] [address] [id number] [address] [place] [address], [place] [id number] Mar, [facility] [address] [id number] [address] [place] [address], [place] [id number] Mar, [facility] [address] [id number] [address] [place] [address], [place] [id number] Mar, [facility] [address] [id number] [address] [place] [address], [place] [id number] Mar, [facility] [address] [id number] [address] [place] [id number] Mar, [facility] [address] [id number] [address] [place] [address], [place] [address] Mar, [facility] [address] [id number] [address] [place] [address], [place] [address] Mar, [facility] [address] [id number] [address] [place] [address], [place] [id number] 05 Sep, 2013 [facility] [address] [id number] [address] [place] [address], [place] [id number] 05 Sep, 2013 [facility] [address] [id number] [address] [place] [address], [place] [id number] 04 Feb, 2013 [facility] [address] [id number] [address] [place] [address], [place] [id number] 04 Feb, 2013 [facility] [address] [id number] [address] [place] [address], [place] [id number] Feb, 2013 [facility] [address] [id number] [address] [place] [address], [place] [id number] Feb, 2013 [facility] [address] [id number] [address] [place] [address], [place] [address] Feb, 2013 [facility] [address] [id number] [address] [place] [address], [place] [address] Feb, 2013 [facility] [address] [id number] [address] [place] [address], [place] [id number] Feb, 2013 [facility] [address] [id number] [address] [place] [address], [place] [address] Feb, 2013 [facility] [address] [id number] [address] [place] [address], [place] [id number] Jan, [facility] [address] [id number] [address] [place] [address], [place] [address] Jan, [facility] [address] [id number] [address] [place] [address], [place] [address] Jan, [facility] [address] [id number] [facility] [id number] Jan, [facility] [address] [id number] [facility] [address] Jan, [facility] [address] [id number] [facility] [id number] Jan, [facility] [address] [id number] [address] [place] [address], [place] [address] Jan, [facility] [address] [id number] [address] [place] [address], [place] [address] Jan, [facility] [address] [id number] [address] [place] [address], [place] [id number] Jan, [facility] [address] [id number] [address] [place] [address], [place] [id number] Jan, [facility] [address] [id number] [address] [place] [address], [place] [address] Jan, [facility] [address] [id number] [address] [place] [address], [place] [id number] Jan, [facility] [address] [id number] [address] [place] [address], [place] [id number] Dec, [facility] [address] [id number] [address] [place] [address], [place] [id number] Dec, [facility] [address] [id number] [address] [place] [address], [place] [address] Dec, [facility] [address] [id number] [address] [place] [address], [place] [address] Dec, [facility] [address] [id number] 95 [place] [address], [place] [address] Dec, [facility] [address] [id number] [address] [place] [address], [place] [address] Dec, [facility] [address] [id number] [address] [place] [address], [place] [address] Dec, [facility] [address] [id number] [address] [place] [address], [place] [address] Dec, 2013 [facility] [address] [id number] [address] [place] [address], [place] [address] Dec, [facility] [address] [id number] [address] [place] [address], [place] [address] Dec, [facility] [address] [id number] [address] [place] [address], [place] [address] Dec, [facility] [address] [id number] [address] [place] [address], [place] [address] Dec, [facility] [address] [id number] [address] [place] [address], [place] [address] Nov, [facility] [address] [id number] [address] [place] [address], [place] [address] Nov, [facility] [address] [id number] [address] [place] [address], [place] [address] Nov, [facility] [address] [id number] [address] [place] [address], [place] [address] Nov, [facility] [address] [id number] [address] [place] [address], [place] [id number] Nov, [facility] [address] [id number] [address] [place] [address], [place] [address] Nov, [facility] [address] [id number] [address] [place] [address], [place] [address] Nov, [facility] [address] [id number] [address] [place] [address], [place] [address] Nov, [facility] [address] [id number] [address] [place] [address], [place] [address] Nov, [facility] [address] [id number] [address] [place] [address], [place] [address] Nov, [facility] [address] [id number] [address] [place] [address], [place] [address] Nov, [facility] [address] [id number] [address] [place] [address], [place] [address] Nov, [facility] [address] [id number] [address] [place] [address], [place] [address] Nov, [facility] [address] [id number] [address] [place] [address], [place] [address] Nov, [facility] [address] [id number] [address] [place] [address], [place] [address] October, [facility] [address] [id number] [address] [place] [address], [place] [address] October, [facility] [address] [id number] [address] [place] [address], [place] [address] October, [facility] [address] [id number] [address] [place] [address], [place] [address] October, [facility] [address] [id number] [address] [place] [address], [place] [address] October, [facility] [address] [id number] [address] [place] [address], [place] [address] October, [facility] [address] [id number] [address] [place] [address], [place] [address] October, [facility] [address] [id number] [address] [place] [address], [place] [address] October, [facility] [address] [id number] [address] [place] [address], [place] [address] October, [facility] [address] [id number] [address] [place] [address], [place] [address] October, [facility] [address] [id number] [address] [place] [address], [place] [address] October, [facility] [address] [id number] [address] [place] [address], [place] [address] October, [facility] [address] [id number] [facility] [id number] Sep, [facility] [address] [id number] [facility] [address] Sep, [facility] [address] [id number] [facility] [address] Sep, [facility] [address] [id number] [address] [place] [address], [place] [address] Sep, [facility] [address] [id number] [address] [place] [address], [place] [address] Sep, [facility] [address] [id number] [address] [place] [address], [place] [address] Sep, [facility] [address] [id number] [address] [place] [address], [place] [address] Aug, [facility] [address] [id number] [address] [place] [address], [place] [address] Aug, [facility] [address] [id number] [address] [place] [address], [place] [address] Aug, [facility] [address] [id number] [address] [place] [address], [place] [address] Aug, [facility] [address] [id number] [address] [place] [address], [place] [address] Aug, [facility] [address] [id number] [address] [place] [address], [place] [address] Aug, [facility] [address] [id number] [address] [place] [address], [place] [address] Jul, [facility] [address] [id number] [address] [place] [address], [place] [address] Jul, [facility] [address] [id number] [address] [place] [address], [place] [address] Jul, [facility] [address] [id number] [address] [place] [address], [place] [address] Jul, [facility] [address] [id number] [address] [place] [address], [place] [address] Jul, [facility] [address] [id number] [address] [place] [address], [place] [address] Jul, [facility] [address] [id number] [address] [place] [address], [place] [address] Jul, [facility] [address] [id number] [address] [place] [address], [place] [address] Jul, [facility] [address] [id number] [address] [place] [address], [place] [address] Jul, [facility] [address] [id number] [address] [place] [address], [place] [address] Jul, [facility] [address] [id number] [address] [place] [address], [place] [address] Jun, [facility] [address] [id number] [address] [place] [address], [place] [address] Jun, [facility] [address] [id number] [address] [place] [address], [place] [address] Jun, [facility] [address] [id number] [address] [place] [address], [place] [address] Jun, [facility] [address] [id number] [address] [place] [address], [place] [address] Jun, [facility] [address] [id number] [address] [place] [address], [place] [address] Jun, [facility] [address] [id number] [address] [place] [address], [place] [address] Jun, [facility] [address] [id number] [address] [place] [address], [place] [address] Jun, [facility] [address] [id number] [address] [place] [address], [place] [address] May, [facility] [address] [id number] [address] [place] [address], [place] [address] May, [facility] [address] [id number] [address] [place] [address], [place] [address] May, [facility] [address] [id number] [address] [place] [address], [place] [address] May, [facility] [address] [id number] [address] [place] [address], [place] [address] May, [facility] [address] [id number] [address] [place] [address], [place] [address] May, [facility] [address] [id number] [address] [place] [address], [place] [address] May, [facility] [address] [id number] [address] [place] [address], [place] [address] May, [facility] [address] [id number] [address] [place] [address], [place] [address] Apr, [facility] [address] [id number] [address] [place] [address], [place] [address] Apr, [facility] [address] [id number] [address] [place] [address], [place] [address] Apr, [facility] [address] [id number] [address] [place] [address], [place] [address] Apr, [facility] [address] [id number] [address] [place] [address], [place] [address] Apr, [facility] [address] [id number] [address] [place] [address], [place] [address] Apr, [facility] [address] [id number] [address] [place] [address], [place] [address] Mar, [facility] [address] [id number] [address] [place] [address], [place] [address] Mar, [facility] [address] [id number] [address] [place] [address], [place] [address] Mar, [facility] [address] [id number] [address] [place] [address], [place] [address] Mar, [facility] [address] [id number] [address] [place] [address], [place] [address] Mar, [facility] [address] [id number] [address] [place] [address], [place] [address] Mar, [facility] [address] [id number] [address] [place] [address], [place] [address] Mar, [facility] [address] [id number] [address] [place] [address], [place] [address] 30 Feb, 2013 [facility] [address] [id number] [address] [place] [address], [place] [address] 30 Feb, 2013 [facility] [address] [id number] [address] [place] [address], [place] [address] Feb, [facility] [address] [id number] [address] [place] [address], [place] [address] Feb, [facility] [address] [id number] [address] [place] [address], [place] [address] Feb, [facility] [address] [id number] [address] [place] [address], [place] [address] Feb, [facility] [address] [id number] [address] [place] [address], [place] [address] Jan, [facility] [address] [id number] [address] [place] [address], [place] [address] Jan, [facility] [address] [id number] [address] [place] [address], [place] [address] Jan, [facility] [address] [id number] [address] [place] [address], [place] [address] Jan, [facility] [address] [id number] [address] [place] [address], [place] [address] Jan, [facility] [address] [id number] [address] [place] [address], [place] [address] Jan, [facility] [address] [id number] [address] [place] [address], [place] [address] Jan, [facility] [address] [id number] [address] [place] [address], [place] [address] Jan, [facility] [address] [id number] [address] [place] [address], [place] [address] Jan, [facility] [address] [id number] [address] [place] [address], [place] [address] Dec, [facility] [address] [id number] [address] [place] [address], [place] [address] Dec, [facility] [address] [id number] [address] [place] [address], [place] [address] Dec, [facility] [address] [id number] [address] [place] [address], [place] [address] Dec, [facility] [address] [id number] [address] [place] [address], [place] [address] Dec, [facility] [address] [id number] [address] [place] [address], [place] [address] Dec, [facility] [address] [id number] [address] [place] [address], [place] [address] Dec, [facility] [address] [id number] [address] [place] [address], [place] [address] Dec, [facility] [address] [id number] [address] [place] [address], [place] [address] Dec, [facility] [address] [id number] [address] [place] [address], [place] [address] Dec, [facility] [address] [id number] [address] [place] [address], [place] [address] Dec, [facility] [address] [id number] [address] [place] [address], [place] [address] Dec, [facility] [address] [id number] [address] [place] [address], [place] [address] Dec, [facility] [address] [id number] [address] [place] [address], [place] [address] Nov, [facility] [address] [id number] [address] [place] [address], [place] [address] Nov, [facility] [address] [id number] [address] [place] [address], [place] [address] Nov, [facility] [address] [id number] [address] [place] [address], [place] [address] Nov, [facility] [address] [id number] [address] [place] [address], [place] [address] October, [facility] [address] [id number] [address] [place] [address], [place] [address] October, [facility] [address] [id number] [address] [place] [address], [place] [address] October, [facility] [address] [id number] [address] [place] [address], [place] [address] October, [facility] [address] [id number] [address] [place] [address], [place] [address] October, [facility] [address] [id number] [address] [place] [address], [place] [address] October, [facility] [address] [id number] [address] [place] [address], [place] [address] Sep, [facility] [address] [id number] [address] [place] [address], [place] [address] Sep, [facility] [address] [id number] [address] [place] [address], [place] [address] Sep, [facility] [address] [id number] [address] [place] [address], [place] [address] Sep, [facility] [address] [id number] [address] [place] [address], [place] [id number] 19 Sep, 2012 [facility] [address] [id number] [address] [place] [address], [place] [address] 16 Sep, 2012 [facility] [address] [id number] [address] [place] [address], [place] [address] Sep, [facility] [address] [id number] [address] [place] [address], [place] [address] Sep, [facility] [address] [id number] [address] [place] [address], [place] [address] Sep, [facility] [address] [id number] [address] [place] [address], [place] [address] Sep, [facility] [address] [id number] [address] [place] [address], [place] [address] Sep, [facility] [address] [id number] [address] [place] [address], [place] [address] Aug, [facility] [address] [id number] [address] [place] [address], [place] [address] Aug, [facility] [address] [id number] [address] [place] [address], [place] [address] 25 Aug, 2012 [facility] [address] [id number] [address] [place] [address], [place] [address] Aug, [facility] [address] [id number] [address] [place] [address], [place] [address] 19 Aug, 2012 [facility] [address] [id number] [address] [place] [address], [place] [address] 18 Aug, 2012 [facility] [address] [id number] [address] [place] [address], [place] [address] 17 Aug, 2012 [facility] [address] [id number] [address] [place] [address], [place] [address] 15 Aug, 2012 [facility] [address] [id number] [address] [place] [address], [place] [address] 15 Aug, 2012 [facility] [address] [id number] [address] [place] [address], [place] [address] Aug, [facility] [address] [id number] [address] [place] [address], [place] [address] Aug, [facility] [address] [id number] [address] [place] [address], [place] [id number] Aug, [facility] [address] [id number] [address] [place] [address], [place] [id number] Jul, [facility] [address] [id number] [address] [place] [address], [place] [id number] Jul, [facility] [address] [id number] [address] [place] [address], [place] [id number] Jul, [facility] [address] [id number] [address] [place] [address], [place] [id number] Jul, [facility] [address] [id number] [address] [place] [address], [place] [id number] Jul, [facility] [address] [id number] [address] [place] [address], [place] [address] Jul, [facility] [address] [id number] [address] [place] [address], [place] [id number] Jul, [facility] [address] [id number] [address] [place] [address], [place] [address] Jul, [facility] [address] [id number] [address] [place] [address], [place] [address] Jul, [facility] [address] [id number] [address] [place] [address], [place] [id number] Jul, [facility] [address] [id number] [address] [place] [address], [place] [id number] May, [facility] [address] [id number] [place] [id number] May, [facility] [address] [id number] [place] [address] May, [facility] [address] [id number] [address] [place] [id number] May, [facility] [address] [id number] [address] [place] [address] May, [facility] [address] [id number] [address] [place] [id number] Apr, [facility] [address] [id number] [place] [id number] Apr, [facility] [address] [id number] [address] [place] [id number] Apr, [facility] [address] [id number] [address] [place] [id number] Mar, [facility] [address] [id number] [place] [id number] Mar, [facility] [address] [id number] [address] [place] [id number] Mar, [facility] [address] [id number] [place] [id number] Feb, [facility] [address] [id number] [address] [place] [id number] Feb, [facility] [address] [id number] [address] [place] [id number] Feb, [facility] [address] [id number] [place] [id number] Feb, [facility] [address] [id number] [place] [id number] Feb, [facility] [address] [id number] [place] [id number] Jan, [facility] [address] [id number] [address] [place] [id number] Jan, [facility] [place] [address] [id number] [place] [id number] Jan, [facility] [place] [address] [id number] [place] [id number] Jan, [facility] [address] [id number] [place] [id number] Jan, [facility] [address] [facility] [id number] [place] [address] Jan, [facility] [address] [facility] [id number] [address] [place] [id number] Jan, [facility] [address] [facility] [id number] [address] [place] [id number] Aug, [facility] [address] [id number] [place] [id number] Aug, [facility] [address] [facility] [id number] [address] [place] [id number] Jul, [facility] [address] [facility] [id number] [address] [place] [id number] Jul, [facility] [address] [facility] [id number] [address] [place] [id number] Jul, [facility] [address] [id number] [place] [id number] Jul, 2011 [facility] [address] [facility] [id number] [address] [place] [id number] Jul, [facility] [address] [id number] [place] [id number] Jul, [facility] [address] [facility] [id number] [address] [place] [id number] Jul, [facility] [address] [id number] [place] [id number] Jul, [facility] [address] [id number] [place] [id number] Jul, [facility] [address] [id number] [place] [id number] Jul, [facility] [address] [facility] [id number] [address] [place] [id number] May, [facility] [address] [id number] [address] [place] [id number] May, [facility] [address] [id number] [address] [place] [id number] May, [facility] [address] [id number] [address] [place] [id number] Apr, [facility] [address] [id number] [address] [place] [id number] Jan, [facility] [address] [id number] [address] [place] [id number] Jan, [facility] [address] [id number] [address] [place] [id number] Dec, [facility] [address] [id number] [address] [place] [id number] Dec, [facility] [address] [id number] [address] [place] [id number] May, [facility] [address] [id number] [address] [place] [id number] Mar, [facility] [address] [id number] [address] [place] [id number] Mar, [facility] [address] [id number] [address] [place] [id number] Jan, IMMUNIZATIONS No Known Immunizations SOCIAL HISTORY Never Assessed REASON FOR VISIT PLAN OF CARE VITAL SIGNS Height 63 in 2012-12-22 Weight 192.2 lbs 2012-12-22 Temperature 99.4 degrees Fahrenheit 2012-12-22 Heart Rate 112 bpm 2012-12-22 Respiratory Rate 18 2012-12-22 Blood pressure systolic 122 mmHg 2012-12-22 Blood pressure diastolic 78 mmHg 2012-12-22 MEDICATIONS Unknown Medications RESULTS No Results PROCEDURES Procedure Date Ordered Result Body Site PROTHROMBIN TIME December 22, 2012 INSTRUCTIONS MEDICATIONS ADMINISTERED No Known Medications [...]
--- OUTSIDE RECORDS SUMMARY | 2020-01-28 13:12 | XMS REPORT ---
Author Author Heydi Candelario Doctor Organization [facility] Address Unknown Phone Unavailable Care Team Providers Care Enzyme Chemist Name Role Phone Migration, Doctor Unavailable Unavailable PROBLEMS Type Condition ICD9-CM Code GSB28-UC Code Onset Dates Condition S tatus SNOMED Code Problem Chronic pain syndrome G89.4 Active 566434427 Problem Sore throat J02.9 Active 90815881 3 Problem Choriocarcinoma C58 Active 1881 62831 Problem longterm current use of anticoagulant Z79.01 Active 808795905 Problem History of venous thromboembolism V12.51 Active 239407499 Problem Cellulitis of unspecified part of limb L03.119 Active 639885315 Problem Gastroesophageal reflux disease without esophagitis K21.9 Active 242284603 Problem History of pulmonary embolism Z86.711 Active 482033982 Problem Pseudotumor cerebri G93.2 Active 47873405 Problem History of DVT (deep vein thrombosis) Z86.718 Active 739258379 ALLERGIES No Information ENCOUNTERS Encounter Location Date Diagnosis [place] [address] [place] [id number] [address] [place] [address] 14 Nov, 2019 Encounter for screening labo ratory testing for COVID-19 virus Z11.59 [place] [address] [place] [id number] [address] [place] [address] Apr, 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 [place] [address] [facility] [id number] [address] [place] [address] Apr, longterm current use of ant icoagulant Z79.01 [place] [address] [facility] [id number] [address] [place] [address] Apr, Cellulitis of unspecified pa rt of limb L03.119 ; Allergic contact dermatitis due to adhesives L23.1 and Chronic pain syndrome G89.4 [place] [address] [address] Apr, [facility] [address] [address] Apr, longterm current use of ant icoagulant Z79.01 ; Cellulitis of unspecified part of limb L03.119 ; Chronic pain syndrome G89.4 and Anxiety F41.9 [place] [address] [address] Apr, [facility] [address] [address] Apr, [place] [address] [address] Mar, [place] [address] [address] Mar, [place] [address] [address] Mar, Sore throat J02.9 ; Gastroes ophageal reflux disease without esophagitis K21.9 ; Pseudotumor cerebri G93.2 ; Chronic pain syndrome G89.4 ; Choriocarcinoma C58 ; History of pulmonary embolism Z86.711 ; History of DVT (deep vein thrombosis) Z86.718 ; Anxiety F41.9 and Tachycardia R00.0 [place] [address] [place] [id number] [address] [place] [address] Feb, Anxiety 300.00 and Chronic p ain 338.29 [facility] [address] [place] [id number] [address] [place] [address] Feb, [facility] [address] [address] Feb, [facility] [address] [place] [id number] [address] [place] [address] Jan, 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.61 and Dysuria 788.1 [place] [address] [place] [id number] [address] [place] [address] Jan, Dysuria 788.1 [place] [address] [address] Jan, Anxiety 300.00 and Chronic p ain 338.29 [place] [address] [address] Jan, [place] [address] [address] Jan, [place] [address] [address] Jan, [place] [address] [address] Dec, Weakness 780.79 [place] [address] [address] Dec, 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.[address] [address] Dec, Palpitations 785.1 ; Tremor 781.0 ; Weakness 780.79 ; longterm current use of anticoagulant therapy V58.61 and Yeast vaginitis 112.1 [place] [address] [place] [id number] [address] [place] [address] Dec, [place] [address] [address] Dec, Cervicalgia 723.1 ; Tachycar yoseph 785.0 ; Pseudotumor cerebri 348.2 and History of venous thromboembolism V12.51 [place] [address] [address] Nov, [place] [address] [place] [id number] [address] [place] [address] Nov, [place] [address] [place] [address] [place] [address] 24 Nov, 2014 Tachycardia 785.0 ; Pseudotu mor cerebri 348.2 ; Anxiety 300.00 and History of venous thromboembolism V12.51 [facility] [address] [id number] [address] [address] 19 Nov, 2014 [facility] [address] [id number] [address] [place] [address] 18 Nov, 2014 [facility] [address] [id number] [address] [place] [address] 16 Nov, 2014 [facility] [address] [id number] [address] [place] [address] Nov, [facility] [address] [facility] [id number] [address] [place] [address] Nov, [facility] [address] [facility] [id number] [address] [place] [address] Nov, [facility] [address] [id number] [address] [place] [address] Nov, [facility] [address] [facility] [id number] [address] [place] [address] October, [facility] [address] [facility] [id number] [address] [place] [address] October, [facility] [address] [facility] [id number] [address] [place] [address] October, Pain in thoracic spine 724.1 and Tachycardia 785.0 [facility] [address] [id number] [address] [place] [address] October, [facility] [address] [facility] [id number] [address] [place] [address] October, [facility] [address] [facility] [id number] [address] [place] [address] 14 Sep, 2014 [facility] [address] [facility] [id number] [address] [place] [address] Sep, [facility] [address] [id number] [address] [place] [address], [place] [address] Aug, [facility] [address] [id number] [address] [place] [address], [place] [address] Aug, [facility] [address] [id number] [address] [place] [address], [place] [address] Aug, [facility] [address] [id number] [address] [place] [address], [place] [address] Aug, [facility] [address] [id number] [address] [place] [address], [place] [address] Aug, [facility] [address] [id number] [address] [place] [address], [place] [address] Aug, [facility] [address] [id number] [address] [place] [address], [place] [address] Aug, [facility] [address] [id number] [address] [place] [address], [place] [address] Aug, [facility] [address] [id number] [address] [place] [address], [place] [address] Aug, [facility] [address] [id number] [address] [place] [address], [place] [address] Aug, [facility] [address] [id number] [address] [place] [address], [place] [address] Aug, [facility] [address] [id number] [address] [place] [address], [place] [address] Aug, [facility] [address] [id number] [address] [place] [address], [place] [address] Jul, [facility] [address] [id number] [address] [place] [address], [place] [address] Jul, [facility] [address] [id number] [address] [place] [address], [place] [address] Jul, [facility] [address] [id number] [address] [place] [address], [place] [address] 23 Jul, 2014 [facility] [address] [id number] [address] [place] [address], [place] [address] 23 Jul, 2014 [facility] [address] [id number] [address] [place] [address], [place] [address] 23 Jul, 2014 [facility] [address] [id number] [address] [place] [address], [place] [address] 23 Jul, 2014 [facility] [address] [id number] [address] [place] [address], [place] [address] 23 Jul, 2014 [facility] [address] [id number] [address] [place] [address], [place] [address] 20 Jul, 2014 [facility] [address] [id number] [address] [place] [address], [place] [address] 20 Jul, 2014 [facility] [address] [id number] [address] [place] [address] 19 Jul, 2014 [facility] [address] [id number] [address] [place] [address], [place] [address] 19 Jul, 2014 [facility] [address] [id number] [address] [place] [address] 17 Jul, 2014 [facility] [address] [id number] [address] [place] [address] 17 Jul, 2014 [facility] [address] [id number] [address] [place] [address] 16 Jul, 2014 [facility] [address] [id number] [address] [place] [address], [place] [address] 16 Jul, 2014 [facility] [address] [id number] [address] [place] [address] 16 Jul, 2014 [facility] [address] [id number] [address] [place] [address] 16 Jul, 2014 [facility] [address] [id number] [address] [place] [address], [place] [address] 13 Jul, 2014 [facility] [address] [id number] [address] [place] [address], [place] [address] Jul, 2014 [facility] [address] [id number] [address] [place] [address], [place] [address] Jul, 2014 [facility] [address] [id number] [address] [place] [address], [place] [address] Jul, 2014 [facility] [address] [id number] [address] [place] [address], [place] [address] Jul, 2014 [facility] [address] [id number] [address] [place] [address], [place] [address] Jul, [facility] [address] [id number] [address] [place] [address], [place] [address] Jul, 2014 [facility] [address] [id number] [address] [place] [address], [place] [address] Jul, [facility] [address] [id number] [address] [place] [address], [place] [address] Jul, [facility] [address] [id number] [address] [place] [address], [place] [address] Jul, [facility] [address] [id number] [address] [place] [address] Jul, [facility] [address] [id number] [address] [place] [address] Jul, [facility] [address] [id number] [address] [place] [address], [place] [address] Jun, [facility] [address] [id number] [address] [place] [address] Jun, [facility] [address] [id number] [address] [place] [address] Jun, [facility] [address] [id number] [address] [place] [place] [address] Jun, [facility] [address] [id number] [address] [place] [address], [place] [address] Jun, [facility] [address] [id number] [address] [place] [address], [place] [address] Jun, [facility] [address] [id number] [address] [place] [address], [place] [address] Jun, [facility] [address] [id number] [address] [place] [address], [place] [address] Jun, [facility] [address] [id number] [address] [place] [address], [place] [address] Jun, [facility] [address] [id number] [address] [place] [address], [place] [address] Jun, [facility] [address] [id number] [address] [place] [address], [place] [address] Jun, [facility] [address] [id number] [address] [place] [address], [place] [address] Jun, [facility] [address] [id number] [address] [place] [address], [place] [address] Jun, [facility] [address] [id number] [address] [place] [address], [place] [address] Jun, [facility] [address] [id number] [address] [place] [address], [place] [address] Jun, [facility] [address] [id number] [address] [place] [address], [place] [address] Jun, [facility] [address] [id number] [address] [place] [address], [place] [address] Jun, [facility] [address] [id number] [address] [place] [address], [place] [address] Jun, [facility] [address] [id number] [address] [place] [address], [place] [address] Jun, [facility] [address] [id number] [address] [place] [address], [place] [address] Jun, [facility] [address] [id number] [address] [place] [address], [place] [address] May, [facility] [address] [id number] [address] [place] [address], [place] [address] May, [facility] [address] [id number] [address] [place] [address], [place] [address] May, [facility] [address] [id number] [address] [place] [address], [place] [address] May, [facility] [address] [id number] [address] [place] [address], [place] [address] May, [facility] [address] [id number] [address] [place] [address], [place] [address] May, [facility] [address] [id number] [address] [place] [address], [place] [address] May, [facility] [address] [id number] [address] [place] [address], [place] [address] May, [facility] [address] [id number] [address] [place] [address], [place] [address] May, [facility] [address] [id number] [address] [place] [address], [place] [address] May, [facility] [address] [id number] [address] [place] [address], [place] [address] May, [facility] [address] [id number] [address] [place] [address], [place] [address] 18 May, 2014 [facility] [address] [id number] [address] [place] [address], [place] [address] 18 May, 2014 [facility] [address] [id number] [address] [place] [address], [place] [address] 17 May, 2014 [facility] [address] [id number] [address] [place] [address], [place] [address] 16 May, 2014 [facility] [address] [id number] [facility] [place] [address] 16 May, 2014 [facility] [address] [id number] [facility] [place] [address] 15 May, 2014 [facility] [address] [id number] [address] [place] [address], [place] [address] 15 May, 2014 [facility] [address] [id number] [address] [place] [address], [place] [address] May, [facility] [address] [id number] [address] [place] [address], [place] [address] May, [facility] [address] [id number] [address] [place] [address], [place] [address] May, [facility] [address] [id number] [address] [place] [address], [place] [address] May, [facility] [address] [id number] [address] [place] [address], [place] [address] May, [facility] [address] [id number] [address] [place] [address], [place] [address] May, [facility] [address] [id number] [address] [place] [address], [place] [address] May, [facility] [address] [id number] [address] [place] [address], [place] [address] May, [facility] [address] [id number] [address] [place] [address], [place] [address] May, [facility] [address] [id number] [address] [place] [address], [place] [address] May, [facility] [address] [id number] [address] [place] [address], [place] [address] May, [facility] [address] [id number] [address] [place] [address], [place] [address] May, [facility] [address] [id number] [address] [place] [address], [place] [address] 05 May, 2014 [facility] [address] [id number] [address] [place] [address], [place] [address] May, [facility] [address] [id number] [address] [place] [address], [place] [address] May, [facility] [address] [id number] [address] [place] [address], [place] [address] May, [facility] [address] [id number] [address] [place] [address], [place] [address] Apr, [facility] [address] [id number] [address] [place] [address], [place] [address] Apr, [facility] [address] [id number] [address] [place] [address], [place] [address] Apr, [facility] [address] [id number] [address] [place] [address], [place] [address] Apr, [facility] [address] [id number] [address] [place] [address], [place] [address] Apr, [facility] [address] [id number] [address] [place] [address], [place] [address] Apr, [facility] [address] [id number] [address] [place] [address], [place] [address] Apr, [facility] [address] [id number] [address] [place] [address], [place] [address] Apr, [facility] [address] [id number] [address] [place] [address], [place] [address] Apr, [facility] [address] [id number] [address] [place] [address], [place] [address] Apr, [facility] [address] [id number] [address] [place] [address], [place] [address] Mar, [facility] [address] [id number] [address] [place] [address], [place] [address] Mar, [facility] [address] [id number] [address] [place] [address], [place] [address] 31 Mar, 2013 [facility] [address] [id number] [address] [place] [address], [place] [address] Mar, 2013 [facility] [address] [id number] [address] [place] [address], [place] [address] 30 Mar, 2014 [facility] [address] [id number] [address] [place] [address], [place] [address] 30 Mar, 2014 [facility] [address] [id number] [address] [place] [address], [place] [address] Mar, [facility] [address] [id number] [address] [place] [address], [place] [address] Mar, [facility] [address] [id number] [address] [place] [address], [place] [address] Mar, [facility] [address] [id number] [address] [place] [address], [place] [address] Mar, [facility] [address] [id number] [address] [place] [address], [place] [address] Mar, [facility] [address] [id number] [address] [place] [address], [place] [address] Mar, [facility] [address] [id number] [address] [place] [address], [place] [address] Mar, [facility] [address] [id number] [address] [place] [address], [place] [address] Mar, [facility] [address] [id number] [address] [place] [address], [place] [address] Mar, [facility] [address] [id number] [address] [place] [address], [place] [address] Mar, [facility] [address] [id number] [address] [place] [address], [place] [address] Mar, [facility] [address] [id number] [address] [place] [id number] Mar, [facility] [address] [id number] [address] [place] [address], [place] [address] Mar, [facility] [address] [id number] [address] [place] [address], [place] [address] Mar, [facility] [address] [id number] [address] [place] [address], [place] [id number] 05 Sep, 2013 [facility] [address] [id number] [address] [place] [address], [place] [address] 05 Sep, 2013 [facility] [address] [id number] [address] [place] [address], [place] [address] 04 Feb, 2013 [facility] [address] [id number] [address] [place] [address], [place] [address] 04 Feb, 2013 [facility] [address] [id number] [address] [place] [address], [place] [address] Feb, 2013 [facility] [address] [id number] [address] [place] [address], [place] [address] Feb, 2013 [facility] [address] [id number] [address] [place] [address], [place] [address] Feb, 2013 [facility] [address] [id number] [address] [place] [address], [place] [address] Feb, 2013 [facility] [address] [id number] [address] [place] [address], [place] [address] Feb, 2013 [facility] [address] [id number] [address] [place] [address], [place] [address] Feb, 2013 [facility] [address] [id number] [address] [place] [address], [place] [address] Jan, [facility] [address] [id number] [address] [place] [address], [place] [address] Jan, [facility] [address] [id number] [address] [place] [address], [place] [address] Jan, [facility] [address] [id number] [facility] [place] [address] Jan, [facility] [address] [id number] [facility] [place] [address] Jan, [facility] [address] [id number] [facility] [place] [address] Jan, [facility] [address] [id number] [address] [place] [address], [place] [address] Jan, [facility] [address] [id number] [address] [place] [address], [place] [address] Jan, [facility] [address] [id number] [address] [place] [address], [place] [address] Jan, [facility] [address] [id number] [address] [place] [address], [place] [address] Jan, [facility] [address] [id number] [address] [place] [address], [place] [address] Jan, [facility] [address] [id number] [address] [place] [address], [place] [address] Jan, [facility] [address] [id number] [address] [place] [address], [place] [address] Dec, [facility] [address] [id number] [address] [place] [address], [place] [address] Dec, [facility] [address] [id number] [address] [place] [address], [place] [address] Dec, [facility] [address] [id number] [address] [place] [address], [place] [address] Dec, [facility] [address] [id number] [address] [place] [address], [place] [address] Dec, [facility] [address] [id number] [address] [place] [address], [place] [address] Dec, [facility] [address] [id number] [address] [place] [address], [place] [address] Dec, [facility] [address] [id number] [address] [place] [address], [place] [address] Dec, 2013 [facility] [address] [id number] [address] [place] [address], [place] [address] Dec, [facility] [address] [id number] [address] [place] [address], [place] [address] Dec, [facility] [address] [id number] [address] [place] [address], [place] [address] Dec, [facility] [address] [id number] [address] [place] [address], [place] [address] Dec, [facility] [address] [id number] [address] [place] [address], [place] [address] Nov, [facility] [address] [id number] [address] [place] [address], [place] [address] Nov, [facility] [address] [id number] [address] [place] [address], [place] [address] Nov, [facility] [address] [id number] [address] [place] [address], [place] [address] Nov, [facility] [address] [id number] [address] [place] [address], [place] [address] Nov, [facility] [address] [id number] [address] [place] [address], [place] [address] Nov, [facility] [address] [id number] [address] [place] [address], [place] [address] Nov, [facility] [address] [id number] [address] [place] [address], [place] [address] Nov, [facility] [address] [id number] [address] [place] [address], [place] [address] Nov, [facility] [address] [id number] [address] [place] [address], [place] [address] Nov, [facility] [address] [id number] [address] [place] [address], [place] [address] Nov, [facility] [address] [id number] [address] [place] [address], [place] [address] Nov, [facility] [address] [id number] [address] [place] [address], [place] [address] Nov, [facility] [address] [id number] [address] [place] [address], [place] [address] Nov, [facility] [address] [id number] [address] [place] [address], [place] [address] October, [facility] [address] [id number] [address] [place] [address], [place] [address] October, [facility] [address] [id number] [address] [place] [address], [place] [address] October, [facility] [address] [id number] [address] [place] [address], [place] [address] October, [facility] [address] [id number] [address] [place] [address], [place] [address] October, [facility] [address] [id number] [address] [place] [address], [place] [address] October, [facility] [address] [id number] [address] [place] [address], [place] [address] October, [facility] [address] [id number] [address] [place] [address], [place] [address] October, [facility] [address] [id number] [address] [place] [address], [place] [address] October, [facility] [address] [id number] [address] [place] [address], [place] [address] October, [facility] [address] [id number] [address] [place] [address], [place] [address] October, [facility] [address] [id number] [address] [place] [address], [place] [address] October, [facility] [address] [id number] [facility] [place] [address] Sep, [facility] [address] [id number] [facility] [place] [address] Sep, [facility] [address] [id number] [facility] [place] [address] Sep, [facility] [address] [id number] [address] [place] [address], [place] [address] Sep, [facility] [address] [id number] [address] [place] [address], [place] [address] Sep, [facility] [address] [id number] [address] [place] [address], [place] [address] Sep, [facility] [address] [id number] [address] [place] [address], [place] [address] Aug, [facility] [address] [id number] [address] [place] [address], [place] [address] Aug, [facility] [address] [id number] [address] [place] [address], [place] [address] Aug, [facility] [address] [id number] [address] [place] [address], [place] [address] Aug, [facility] [address] [id number] [address] [place] [address], [place] [address] Aug, [facility] [address] [id number] [address] [place] [address], [place] [address] Aug, [facility] [address] [id number] [address] [place] [address], [place] [address] Jul, [facility] [address] [id number] [address] [place] [address], [place] [address] Jul, [facility] [address] [id number] [address] [place] [address], [place] [address] Jul, [facility] [address] [id number] [address] [place] [address], [place] [address] Jul, [facility] [address] [id number] [address] [place] [address], [place] [address] Jul, [facility] [address] [id number] [address] [place] [address], [place] [address] Jul, [facility] [address] [id number] [address] [place] [address], [place] [address] Jul, [facility] [address] [id number] [address] [place] [address], [place] [address] Jul, [facility] [address] [id number] [address] [place] [address], [place] [address] Jul, [facility] [address] [id number] [address] [place] [address], [place] [address] Jul, [facility] [address] [id number] [address] [place] [address], [place] [address] Jun, [facility] [address] [id number] [address] [place] [address], [place] [address] Jun, [facility] [address] [id number] [address] [place] [address], [place] [address] Jun, [facility] [address] [id number] [address] [place] [address], [place] [address] Jun, [facility] [address] [id number] [address] [place] [address], [place] [address] Jun, [facility] [address] [id number] [address] [place] [address], [place] [address] Jun, [facility] [address] [id number] [address] [place] [address], [place] [address] Jun, [facility] [address] [id number] [address] [place] [address], [place] [address] Jun, [facility] [address] [id number] [address] [place] [address], [place] [address] May, [facility] [address] [id number] [address] [place] [address], [place] [address] May, [facility] [address] [id number] [address] [place] [address], [place] [address] May, [facility] [address] [id number] [address] [place] [address], [place] [address] May, [facility] [address] [id number] [address] [place] [address], [place] [address] May, [facility] [address] [id number] [address] [place] [address], [place] [address] May, [facility] [address] [id number] [address] [place] [address], [place] [address] May, [facility] [address] [id number] [address] [place] [address], [place] [address] May, [facility] [address] [id number] [address] [place] [address], [place] [address] Apr, [facility] [address] [id number] [address] [place] [address], [place] [address] Apr, [facility] [address] [id number] [address] [place] [address], [place] [address] Apr, [facility] [address] [id number] [address] [place] [address], [place] [address] Apr, [facility] [address] [id number] [address] [place] [address], [place] [address] Apr, [facility] [address] [id number] [address] [place] [address], [place] [address] Apr, [facility] [address] [id number] [address] [place] [address], [place] [address] Mar, [facility] [address] [id number] [address] [place] [address], [place] [address] Mar, [facility] [address] [id number] [address] [place] [address], [place] [address] Mar, [facility] [address] [id number] [address] [place] [address], [place] [address] Mar, [facility] [address] [id number] [address] [place] [address], [place] [address] Mar, [facility] [address] [id number] [address] [place] [address], [place] [address] Mar, [facility] [address] [id number] [address] [place] [address], [place] [address] Mar, [facility] [address] [id number] [address] [place] [address], [place] [address] 30 Feb, 2013 [facility] [address] [id number] [address] [place] [address], [place] [address] 30 Feb, 2013 [facility] [address] [id number] [address] [place] [address], [place] [address] Feb, [facility] [address] [id number] [address] [place] [address], [place] [address] Feb, [facility] [address] [id number] [address] [place] [address], [place] [address] Feb, [facility] [address] [id number] [address] [place] [address], [place] [address] Feb, [facility] [address] [id number] [address] [place] [address], [place] [address] Jan, [facility] [address] [id number] [address] [place] [address], [place] [address] Jan, [facility] [address] [id number] [address] [place] [address], [place] [address] Jan, [facility] [address] [id number] [address] [place] [address], [place] [address] Jan, [facility] [address] [id number] [address] [place] [address], [place] [address] Jan, [facility] [address] [id number] [address] [place] [address], [place] [address] Jan, [facility] [address] [id number] [address] [place] [address], [place] [address] Jan, [facility] [address] [id number] [address] [place] [address], [place] [address] Jan, [facility] [address] [id number] [address] [place] [address], [place] [address] Jan, [facility] [address] [id number] [address] [place] [address], [place] [address] Dec, [facility] [address] [id number] [address] [place] [address], [place] [address] Dec, [facility] [address] [id number] [address] [place] [address], [place] [address] Dec, [facility] [address] [id number] [address] [place] [address], [place] [address] Dec, [facility] [address] [id number] [address] [place] [address], [place] [address] Dec, [facility] [address] [id number] [address] [place] [address], [place] [address] Dec, [facility] [address] [id number] [address] [place] [address], [place] [address] Dec, [facility] [address] [id number] [address] [place] [address], [place] [address] Dec, [facility] [address] [id number] [address] [place] [address], [place] [address] Dec, [facility] [address] [id number] [address] [place] [address], [place] [address] Dec, [facility] [address] [id number] [address] [place] [address], [place] [address] Dec, [facility] [address] [id number] [address] [place] [address], [place] [address] Dec, [facility] [address] [id number] [address] [place] [address], [place] [address] Dec, [facility] [address] [id number] [address] [place] [address], [place] [address] Nov, [facility] [address] [id number] [address] [place] [address], [place] [address] Nov, [facility] [address] [id number] [address] [place] [address], [place] [address] Nov, [facility] [address] [id number] [address] [place] [address], [place] [address] Nov, [facility] [address] [id number] [address] [place] [address], [place] [address] October, [facility] [address] [id number] [address] [place] [address], [place] [address] October, [facility] [address] [id number] [address] [place] [address], [place] [address] October, [facility] [address] [id number] [address] [place] [address], [place] [address] October, [facility] [address] [id number] [address] [place] [address], [place] [address] October, [facility] [address] [id number] [address] [place] [address], [place] [address] October, [facility] [address] [id number] [address] [place] [address], [place] [address] Sep, [facility] [address] [id number] [address] [place] [address], [place] [address] Sep, [facility] [address] [id number] [address] [place] [address], [place] [address] Sep, [facility] [address] [id number] [address] [place] [address], [place] [address] Sep, [facility] [address] [id number] [address] [place] [address], [place] [address] 19 Sep, 2012 [facility] [address] [id number] [address] [place] [address], [place] [address] 16 Sep, 2012 [facility] [address] [id number] [address] [place] [address], [place] [address] Sep, [facility] [address] [id number] [address] [place] [address], [place] [address] Sep, [facility] [address] [id number] [address] [place] [address], [place] [address] Sep, [facility] [address] [id number] [address] [place] [address], [place] [address] Sep, [facility] [address] [id number] [address] [place] [address], [place] [address] Sep, [facility] [address] [id number] [address] [place] [address], [place] [address] Aug, [facility] [address] [id number] [address] [place] [address], [place] [address] Aug, [facility] [address] [id number] [address] [place] [address], [place] [address] 25 Aug, 2012 [facility] [address] [id number] [address] [place] [address], [place] [address] Aug, [facility] [address] [id number] [address] [place] [address], [place] [address] 19 Aug, 2012 [facility] [address] [id number] [address] [place] [address], [place] [address] 18 Aug, 2012 [facility] [address] [id number] [address] [place] [address], [place] [address] 17 Aug, 2012 [facility] [address] [id number] [address] [place] [address], [place] [address] 15 Aug, 2012 [facility] [address] [id number] [address] [place] [address], [place] [address] 15 Aug, 2012 [facility] [address] [id number] [address] [place] [address], [place] [address] Aug, [facility] [address] [id number] [address] [place] [address], [place] [address] Aug, [facility] [address] [id number] [address] [place] [address], [place] [address] Aug, [facility] [address] [id number] [address] [place] [address], [place] [address] Jul, [facility] [address] [id number] [address] [place] [address], [place] [address] Jul, [facility] [address] [id number] [address] [place] [address], [place] [address] Jul, [facility] [address] [id number] [address] [place] [address], [place] [address] Jul, [facility] [address] [id number] [address] [place] [address], [place] [address] Jul, [facility] [address] [id number] [address] [place] [address], [place] [address] Jul, [facility] [address] [id number] [address] [place] [address], [place] [address] Jul, [facility] [address] [id number] [address] [place] [address], [place] [address] Jul, [facility] [address] [id number] [address] [place] [address], [place] [address] Jul, [facility] [address] [id number] [address] [place] [address], [place] [address] Jul, [facility] [address] [id number] [address] [place] [address], [place] [address] May, [facility] [address] [id number] [place] [id number] May, [facility] [address] [id number] [place] [address] May, [facility] [address] [id number] [address] [place] [address] May, [facility] [address] [id number] [address] [place] [address] May, [facility] [address] [id number] [address] [place] [address] Apr, [facility] [place] [address] [id number] [place] [id number] Apr, [facility] [address] [id number] [address] [place] [place] [address] Apr, [facility] [address] [id number] [address] [place] [address] Mar, [facility] [address] [id number] [place] [id number] Mar, [facility] [address] [id number] [address] [place] [address] Mar, [facility] [address] [id number] [place] [id number] Feb, [facility] [address] [id number] [address] [place] [id number] Feb, [facility] [address] [id number] [address] [place] [place] [address] Feb, [facility] [address] [id number] [place] [id number] Feb, [facility] [address] [id number] [place] [id number] Feb, [facility] [place] [address] [id number] [place] [id number] Jan, [facility] [address] [id number] [address] [place] [id number] Jan, [facility] [address] [id number] [place] [id number] Jan, [facility] [address] [id number] [place] [id number] Jan, [facility] [address] [id number] [place] [id number] Jan, [facility] [address] [facility] [id number] [place] [address] Jan, [facility] [address] [facility] [id number] [address] [place] [id number] Jan, [facility] [address] [facility] [id number] [address] [place] [id number] Aug, [facility] [address] [id number] [place] [id number] Aug, [facility] [address] [facility] [id number] [address] [place] [id number] Jul, [facility] [address] [facility] [id number] [address] [place] [id number] Jul, [facility] [address] [facility] [id number] [address] [place] [id number] Jul, [facility] [address] [id number] [place] [id number] Jul, 2011 [facility] [address] [facility] [id number] [address] [place] [id number] Jul, [facility] [address] [id number] [place] [id number] Jul, [facility] [address] [facility] [id number] [address] [place] [id number] Jul, [facility] [address] [id number] [place] [id number] Jul, [facility] [address] [id number] [place] [id number] Jul, [facility] [address] [id number] [place] [id number] Jul, [facility] [address] [facility] [id number] [address] [place] [id number] May, [facility] [address] [id number] [address] [place] [id number] May, [facility] [address] [id number] [address] [place] [id number] May, [facility] [address] [id number] [address] [place] [id number] Apr, [facility] [address] [id number] [address] [place] [id number] Jan, [facility] [address] [id number] [address] [place] [id number] Jan, [facility] [address] [id number] [address] [place] [id number] Dec, [facility] [address] [id number] [address] [place] [id number] Dec, [facility] [address] [id number] [address] [place] [id number] May, [facility] [address] [id number] [address] [place] [id number] Mar, [facility] [address] [id number] [address] [place] [id number] Mar, [facility] [address] [id number] [address] [place] [place] [id number] 14 Jan, 2009 IMMUNIZATIONS No Known Immunizations [...]
--- OUTSIDE RECORDS SUMMARY | 2020-01-28 13:12 | XMS REPORT ---
Author Author Heydi Candelario Doctor Organization [facility] Address Unknown Phone Unavailable Care Team Providers Care Manager Packaging Name Role Phone Migration, Doctor Unavailable Unavailable PROBLEMS Type Condition ICD9-CM Code [id number] Code Onset Dates Condition S tatus SNOMED Code Problem Chronic pain syndrome G89.4 Active 862271301 Problem Sore throat J02.9 Active 09833576 3 Problem Choriocarcinoma C58 Active 1881 76314 Problem skilled nursing current use of anticoagulant Z79.01 Active 628558701 Problem History of venous thromboembolism V12.51 Active 069229151 Problem Cellulitis of unspecified part of limb L03.119 Active 329825526 Problem Gastroesophageal reflux disease without esophagitis K21.9 Active 239586963 Problem History of pulmonary embolism Z86.711 Active 603004550 Problem Pseudotumor cerebri G93.2 Active 90294354 Problem History of DVT (deep vein thrombosis) Z86.718 Active 928689917 ALLERGIES No Information ENCOUNTERS Encounter Location Date Diagnosis [place] [address] [place] [id number] [address] [place] [address] 14 Nov, 2019 Encounter for screening labo ratory testing for COVID-19 virus Z11.59 [place] [address] [place] [id number] [address] [place] [address] Apr, 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 [place] [address] [facility] [id number] [address] [place] [address] Apr, skilled nursing current use of ant icoagulant Z79.01 [place] [address] [facility] [id number] [address] [place] [address] Apr, Cellulitis of unspecified pa rt of limb L03.119 ; Allergic contact dermatitis due to adhesives L23.1 and Chronic pain syndrome G89.4 [place] [address] [address] Apr, [facility] [address] [address] Apr, skilled nursing current use of ant icoagulant Z79.01 ; Cellulitis of unspecified part of limb L03.119 ; Chronic pain syndrome G89.4 and Anxiety F41.9 [place] [address] [address] Apr, [facility] [address] [address] Apr, [place] [address] [address] Mar, [place] [address] [address] Mar, [place] [address] [address] Mar, Sore throat J02.9 ; Gastroes ophageal reflux disease without esophagitis K21.9 ; Pseudotumor cerebri G93.2 ; Chronic pain syndrome G89.4 ; Choriocarcinoma C58 ; History of pulmonary embolism Z86.711 ; History of DVT (deep vein thrombosis) Z86.718 ; Anxiety F41.9 and Tachycardia R00.0 [place] [address] [place] [id number] [address] [place] [address] Feb, Anxiety 300.00 and Chronic p ain 338.29 [facility] [address] [place] [id number] [address] [place] [address] Feb, [facility] [address] [address] Feb, [facility] [address] [place] [id number] [address] [place] [address] Jan, 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.61 and Dysuria 788.1 [place] [address] [place] [id number] [address] [place] [address] Jan, Dysuria 788.1 [place] [address] [address] Jan, Anxiety 300.00 and Chronic p ain 338.29 [place] [address] [address] Jan, [place] [address] [address] Jan, [place] [address] [address] Jan, [place] [address] [address] Dec, Weakness 780.79 [place] [address] [address] Dec, 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.[address] [address] Dec, Palpitations 785.1 ; Tremor 781.0 ; Weakness 780.79 ; skilled nursing current use of anticoagulant therapy V58.61 and Yeast vaginitis 112.1 [place] [address] [place] [id number] [address] [place] [address] Dec, [place] [address] [address] Dec, Cervicalgia 723.1 ; Tachycar yoseph 785.0 ; Pseudotumor cerebri 348.2 and History of venous thromboembolism V12.51 [place] [address] [address] Nov, [place] [address] [place] [id number] [address] [place] [address] Nov, [place] [address] [place] [id number] [place] [address] 24 Nov, 2014 Tachycardia 785.0 ; Pseudotu mor cerebri 348.2 ; Anxiety 300.00 and History of venous thromboembolism V12.51 [facility] [address] [id number] [address] [place] [address] 19 Nov, 2014 [facility] [address] [id number] [address] [place] [address] 18 Nov, 2014 [facility] [address] [id number] [address] [place] [address] 16 Nov, 2014 [facility] [address] [id number] [address] [place] [address] Nov, [facility] [address] [facility] [id number] [address] [place] [address] Nov, [facility] [address] [facility] [id number] [address] [place] [address] Nov, [facility] [address] [id number] [address] [place] [address] Nov, [facility] [address] [facility] [id number] [address] [place] [address] October, [facility] [address] [facility] [id number] [address] [place] [address] October, [facility] [address] [facility] [id number] [address] [place] [address] October, Pain in thoracic spine 724.1 and Tachycardia 785.0 [facility] [address] [id number] [address] [place] [address] October, [facility] [address] [facility] [id number] [address] [place] [address] October, [facility] [address] [facility] [id number] [address] [place] [address] 14 Sep, 2014 [facility] [address] [facility] [id number] [address] [place] [address] Sep, [facility] [address] [id number] [address] [place] [address], [place] [address] Aug, [facility] [address] [id number] [address] [place] [address], [place] [address] Aug, [facility] [address] [id number] [address] [place] [address], [place] [address] Aug, [facility] [address] [id number] [address] [place] [address], [place] [address] Aug, [facility] [address] [id number] [address] [place] [address], [place] [address] Aug, [facility] [address] [id number] [address] [place] [address], [place] [address] Aug, [facility] [address] [id number] [address] [place] [address], [place] [address] Aug, [facility] [address] [id number] [address] [place] [address], [place] [address] Aug, [facility] [address] [id number] [address] [place] [address], [place] [address] Aug, [facility] [address] [id number] [address] [place] [address], [place] [address] Aug, [facility] [address] [id number] [address] [place] [address], [place] [address] Aug, [facility] [address] [id number] [address] [place] [address], [place] [address] Aug, [facility] [address] [id number] [address] [place] [address], [place] [address] Jul, [facility] [address] [id number] [address] [place] [address], [place] [address] Jul, [facility] [address] [id number] [address] [place] [address], [place] [address] Jul, [facility] [address] [id number] [address] [place] [address], [place] [address] 23 Jul, 2014 [facility] [address] [id number] [address] [place] [address], [place] [address] 23 Jul, 2014 [facility] [address] [id number] [address] [place] [address], [place] [address] 23 Jul, 2014 [facility] [address] [id number] [address] [place] [address], [place] [address] 23 Jul, 2014 [facility] [address] [id number] [address] [place] [address], [place] [address] 23 Jul, 2014 [facility] [address] [id number] [address] [place] [address], [place] [address] 20 Jul, 2014 [facility] [address] [id number] [address] [place] [address], [place] [address] 20 Jul, 2014 [facility] [address] [id number] [address] [place] [address] 19 Jul, 2014 [facility] [address] [id number] [address] [place] [address], [place] [address] 19 Jul, 2014 [facility] [address] [id number] [address] [place] [address] 17 Jul, 2014 [facility] [address] [id number] [address] [place] [address] 17 Jul, 2014 [facility] [address] [id number] [address] [place] [address] 16 Jul, 2014 [facility] [address] [id number] [address] [place] [address], [place] [address] 16 Jul, 2014 [facility] [address] [id number] [address] [place] [address] 16 Jul, 2014 [facility] [address] [id number] [address] [place] [address] 16 Jul, 2014 [facility] [address] [id number] [address] [place] [address], [place] [address] 13 Jul, 2014 [facility] [address] [id number] [address] [place] [address], [place] [address] Jul, 2014 [facility] [address] [id number] [address] [place] [address], [place] [address] Jul, 2014 [facility] [address] [id number] [address] [place] [address], [place] [address] Jul, 2014 [facility] [address] [id number] [address] [place] [address], [place] [address] Jul, 2014 [facility] [address] [id number] [address] [place] [address], [place] [address] Jul, [facility] [address] [id number] [address] [place] [address], [place] [address] Jul, 2014 [facility] [address] [id number] [address] [place] [address], [place] [address] Jul, [facility] [address] [id number] [address] [place] [address], [place] [address] Jul, [facility] [address] [id number] [address] [place] [address], [place] [address] Jul, [facility] [address] [id number] [address] [place] [address] Jul, [facility] [address] [id number] [address] [place] [address] Jul, [facility] [address] [id number] [address] [place] [address], [place] [address] Jun, [facility] [address] [id number] [address] [place] [address] Jun, [facility] [address] [id number] [address] [place] [address] Jun, [facility] [address] [id number] [address] [place] [address] Jun, [facility] [address] [id number] [address] [place] [address], [place] [address] Jun, [facility] [address] [id number] [address] [place] [address], [place] [address] Jun, [facility] [address] [id number] [address] [place] [address], [place] [address] Jun, [facility] [address] [id number] [address] [place] [address], [place] [address] Jun, [facility] [address] [id number] [address] [place] [address], [place] [address] Jun, [facility] [address] [id number] [address] [place] [address], [place] [address] Jun, [facility] [address] [id number] [address] [place] [address], [place] [address] Jun, [facility] [address] [id number] [address] [place] [address], [place] [address] Jun, [facility] [address] [id number] [address] [place] [address], [place] [address] Jun, [facility] [address] [id number] [address] [place] [address], [place] [address] Jun, [facility] [address] [id number] [address] [place] [address], [place] [address] Jun, [facility] [address] [id number] [address] [place] [address], [place] [address] Jun, [facility] [address] [id number] [address] [place] [address], [place] [address] Jun, [facility] [address] [id number] [address] [place] [address], [place] [address] Jun, [facility] [address] [id number] [address] [place] [address], [place] [address] Jun, [facility] [address] [id number] [address] [place] [address], [place] [address] Jun, [facility] [address] [id number] [address] [place] [address], [place] [address] May, [facility] [address] [id number] [address] [place] [address], [place] [address] May, [facility] [address] [id number] [address] [place] [address], [place] [address] May, [facility] [address] [id number] [address] [place] [address], [place] [address] May, [facility] [address] [id number] [address] [place] [address], [place] [address] May, [facility] [address] [id number] [address] [place] [address], [place] [address] May, [facility] [address] [id number] [address] [place] [address], [place] [address] May, [facility] [address] [id number] [address] [place] [address], [place] [address] May, [facility] [address] [id number] [address] [place] [address], [place] [address] May, [facility] [address] [id number] [address] [place] [address], [place] [address] May, [facility] [address] [id number] [address] [place] [address], [place] [address] May, [facility] [address] [id number] [address] [place] [address], [place] [address] 18 May, 2014 [facility] [address] [id number] [address] [place] [address], [place] [address] 18 May, 2014 [facility] [address] [id number] [address] [place] [address], [place] [address] 17 May, 2014 [facility] [address] [id number] [address] [place] [address], [place] [address] 16 May, 2014 [facility] [address] [id number] [facility] [place] [address] 16 May, 2014 [facility] [address] [id number] [facility] [place] [address] 15 May, 2014 [facility] [address] [id number] [address] [place] [address], [place] [address] 15 May, 2014 [facility] [address] [id number] [address] [place] [address], [place] [address] May, [facility] [address] [id number] [address] [place] [address], [place] [address] May, [facility] [address] [id number] [address] [place] [address], [place] [address] May, [facility] [address] [id number] [address] [place] [address], [place] [address] May, [facility] [address] [id number] [address] [place] [address], [place] [address] May, [facility] [address] [id number] [address] [place] [address], [place] [address] May, [facility] [address] [id number] [address] [place] [address], [place] [address] May, [facility] [address] [id number] [address] [place] [address], [place] [address] May, [facility] [address] [id number] [address] [place] [address], [place] [address] May, [facility] [address] [id number] [address] [place] [address], [place] [address] May, [facility] [address] [id number] [address] [place] [address], [place] [address] May, [facility] [address] [id number] [address] [place] [address], [place] [address] May, [facility] [address] [id number] [address] [place] [address], [place] [address] 05 May, 2014 [facility] [address] [id number] [address] [place] [address], [place] [address] May, [facility] [address] [id number] [address] [place] [address], [place] [address] May, [facility] [address] [id number] [address] [place] [address], [place] [address] May, [facility] [address] [id number] [address] [place] [address], [place] [address] Apr, [facility] [address] [id number] [address] [place] [address], [place] [address] Apr, [facility] [address] [id number] [address] [place] [address], [place] [address] Apr, [facility] [address] [id number] [address] [place] [address], [place] [address] Apr, [facility] [address] [id number] [address] [place] [address], [place] [address] Apr, [facility] [address] [id number] [address] [place] [address], [place] [address] Apr, [facility] [address] [id number] [address] [place] [address], [place] [address] Apr, [facility] [address] [id number] [address] [place] [address], [place] [address] Apr, [facility] [address] [id number] [address] [place] [address], [place] [address] Apr, [facility] [address] [id number] [address] [place] [address], [place] [address] Apr, [facility] [address] [id number] [address] [place] [address], [place] [address] Mar, [facility] [address] [id number] [address] [place] [address], [place] [address] Mar, [facility] [address] [id number] [address] [place] [address], [place] [address] 31 Mar, 2013 [facility] [address] [id number] [address] [place] [address], [place] [address] Mar, 2013 [facility] [address] [id number] [address] [place] [address], [place] [address] 30 Mar, 2014 [facility] [address] [id number] [address] [place] [address], [place] [address] 30 Mar, 2014 [facility] [address] [id number] [address] [place] [address], [place] [address] Mar, [facility] [address] [id number] [address] [place] [address], [place] [address] Mar, [facility] [address] [id number] [address] [place] [address], [place] [address] Mar, [facility] [address] [id number] [address] [place] [address], [place] [address] Mar, [facility] [address] [id number] [address] [place] [address], [place] [address] Mar, [facility] [address] [id number] [address] [place] [address], [place] [address] Mar, [facility] [address] [id number] [address] [place] [address], [place] [address] Mar, [facility] [address] [id number] [address] [place] [address], [place] [address] Mar, [facility] [address] [id number] [address] [place] [address], [place] [address] Mar, [facility] [address] [id number] [address] [place] [address], [place] [address] Mar, [facility] [address] [id number] [address] [place] [address], [place] [address] Mar, [facility] [address] [id number] [address] [place] [address] Mar, [facility] [address] [id number] [address] [place] [address], [place] [address] Mar, [facility] [address] [id number] [address] [place] [address], [place] [address] Mar, [facility] [address] [id number] [address] [place] [address], [place] [address] 05 Sep, 2013 [facility] [address] [id number] [address] [place] [address], [place] [address] 05 Sep, 2013 [facility] [address] [id number] [address] [place] [address], [place] [address] 04 Feb, 2013 [facility] [address] [id number] [address] [place] [address], [place] [address] 04 Feb, 2013 [facility] [address] [id number] [address] [place] [address], [place] [address] Feb, 2013 [facility] [address] [id number] [address] [place] [address], [place] [address] Feb, 2013 [facility] [address] [id number] [address] [place] [address], [place] [address] Feb, 2013 [facility] [address] [id number] [address] [place] [address], [place] [address] Feb, 2013 [facility] [address] [id number] [address] [place] [address], [place] [address] Feb, 2013 [facility] [address] [id number] [address] [place] [address], [place] [address] Feb, 2013 [facility] [address] [id number] [address] [place] [address], [place] [address] Jan, [facility] [address] [id number] [address] [place] [address], [place] [address] Jan, [facility] [address] [id number] [address] [place] [address], [place] [address] Jan, [facility] [address] [id number] [facility] [place] [address] Jan, [facility] [address] [id number] [facility] [place] [address] Jan, [facility] [address] [id number] [facility] [place] [address] Jan, [facility] [address] [id number] [address] [place] [address], [place] [address] Jan, [facility] [address] [id number] [address] [place] [address], [place] [address] Jan, [facility] [address] [id number] [address] [place] [address], [place] [address] Jan, [facility] [address] [id number] [address] [place] [address], [place] [address] Jan, [facility] [address] [id number] [address] [place] [address], [place] [address] Jan, [facility] [address] [id number] [address] [place] [address], [place] [address] Jan, [facility] [address] [id number] [address] [place] [address], [place] [address] Dec, [facility] [address] [id number] [address] [place] [address], [place] [address] Dec, [facility] [address] [id number] [address] [place] [address], [place] [address] Dec, [facility] [address] [id number] [address] [place] [address], [place] [address] Dec, [facility] [address] [id number] [address] [place] [address], [place] [address] Dec, [facility] [address] [id number] [address] [place] [address], [place] [address] Dec, [facility] [facility] [address] [id number] [address] [place] [address], [place] [address] Dec, [facility] [address] [id number] [address] [place] [address], [place] [address] Dec, 2013 [facility] [address] [id number] [address] [place] [address], [place] [address] Dec, [facility] [address] [id number] [address] [place] [address], [place] [address] Dec, [facility] [address] [id number] [address] [place] [address], [place] [address] Dec, [facility] [address] [id number] [address] [place] [address], [place] [address] Dec, [facility] [address] [id number] [address] [place] [address], [place] [address] Nov, [facility] [address] [id number] [address] [place] [address], [place] [address] Nov, [facility] [address] [id number] [address] [place] [address], [place] [address] Nov, [facility] [address] [id number] [address] [place] [address], [place] [address] Nov, [facility] [address] [id number] [address] [place] [address], [place] [address] Nov, [facility] [address] [id number] [address] [place] [address], [place] [address] Nov, [facility] [address] [id number] [address] [place] [address], [place] [address] Nov, [facility] [address] [id number] [address] [place] [address], [place] [address] Nov, [facility] [address] [id number] [address] [place] [address], [place] [address] Nov, [facility] [address] [id number] [address] [place] [address], [place] [address] Nov, [facility] [address] [id number] [address] [place] [address], [place] [address] Nov, [facility] [address] [id number] [address] [place] [address], [place] [address] Nov, [facility] [address] [id number] [address] [place] [address], [place] [address] Nov, [facility] [address] [id number] [address] [place] [address], [place] [address] Nov, [facility] [address] [id number] [address] [place] [address], [place] [address] October, [facility] [address] [id number] [address] [place] [address], [place] [address] October, [facility] [address] [id number] [address] [place] [address], [place] [address] October, [facility] [address] [id number] [address] [place] [address], [place] [address] October, [facility] [address] [id number] [address] [place] [address], [place] [address] October, [facility] [address] [id number] [address] [place] [address], [place] [address] October, [facility] [address] [id number] [address] [place] [address], [place] [address] October, [facility] [address] [id number] [address] [place] [address], [place] [address] October, [facility] [address] [id number] [address] [place] [address], [place] [address] October, [facility] [address] [id number] [address] [place] [address], [place] [address] October, [facility] [address] [id number] [address] [place] [address], [place] [address] October, [facility] [address] [id number] [address] [place] [address], [place] [address] October, [facility] [address] [id number] [facility] [place] [address] Sep, [facility] [address] [id number] [facility] [place] [address] Sep, [facility] [address] [id number] [facility] [place] [address] Sep, [facility] [address] [id number] [address] [place] [address], [place] [address] Sep, [facility] [address] [id number] [address] [place] [address], [place] [address] Sep, [facility] [address] [id number] [address] [place] [address], [place] [address] Sep, [facility] [address] [id number] [address] [place] [address], [place] [address] Aug, [facility] [address] [id number] [address] [place] [address], [place] [address] Aug, [facility] [address] [id number] [address] [place] [address], [place] [address] Aug, [facility] [address] [id number] [address] [place] [address], [place] [address] Aug, [facility] [address] [id number] [address] [place] [address], [place] [address] Aug, [facility] [address] [id number] [address] [place] [address], [place] [address] Aug, [facility] [address] [id number] [address] [place] [address], [place] [address] Jul, [facility] [address] [id number] [address] [place] [address], [place] [address] Jul, [facility] [address] [id number] [address] [place] [address], [place] [address] Jul, [facility] [address] [id number] [address] [place] [address], [place] [address] Jul, [facility] [address] [id number] [address] [place] [address], [place] [address] Jul, [facility] [address] [id number] [address] [place] [address], [place] [address] Jul, [facility] [address] [id number] [address] [place] [address], [place] [address] Jul, [facility] [address] [id number] [address] [place] [address], [place] [address] Jul, [facility] [address] [id number] [address] [place] [address], [place] [address] Jul, [facility] [address] [id number] [address] [place] [address], [place] [address] Jul, [facility] [address] [id number] [address] [place] [address], [place] [address] Jun, [facility] [address] [id number] [address] [place] [address], [place] [address] Jun, [facility] [address] [id number] [address] [place] [address], [place] [address] Jun, [facility] [address] [id number] [address] [place] [address], [place] [address] Jun, [facility] [address] [id number] [address] [place] [address], [place] [address] Jun, [facility] [address] [id number] [address] [place] [address], [place] [address] Jun, [facility] [address] [id number] [address] [place] [address], [place] [address] Jun, [facility] [address] [id number] [address] [place] [address], [place] [address] Jun, [facility] [address] [id number] [address] [place] [address], [place] [address] May, [facility] [address] [id number] [address] [place] [address], [place] [address] May, [facility] [address] [id number] [address] [place] [address], [place] [address] May, [facility] [address] [id number] [address] [place] [address], [place] [address] May, [facility] [address] [id number] [address] [place] [address], [place] [address] May, [facility] [address] [id number] [address] [place] [address], [place] [address] May, [facility] [address] [id number] [address] [place] [address], [place] [address] May, [facility] [address] [id number] [address] [place] [address], [place] [address] May, [facility] [address] [id number] [address] [place] [address], [place] [address] Apr, [facility] [address] [id number] [address] [place] [address], [place] [address] Apr, [facility] [address] [id number] [address] [place] [address], [place] [address] Apr, [facility] [address] [id number] [address] [place] [address], [place] [address] Apr, [facility] [address] [id number] [address] [place] [address], [place] [address] Apr, [facility] [address] [id number] [address] [place] [address], [place] [address] Apr, [facility] [address] [id number] [address] [place] [address], [place] [address] Mar, [facility] [address] [id number] [address] [place] [address], [place] [address] Mar, [facility] [address] [id number] [address] [place] [address], [place] [address] Mar, [facility] [address] [id number] [address] [place] [address], [place] [address] Mar, [facility] [address] [id number] [address] [place] [address], [place] [address] Mar, [facility] [address] [id number] [address] [place] [address], [place] [address] Mar, [facility] [address] [id number] [address] [place] [address], [place] [address] Mar, [facility] [address] [id number] [address] [place] [address], [place] [address] 30 Feb, 2013 [facility] [address] [id number] [address] [place] [address], [place] [address] 30 Feb, 2013 [facility] [address] [id number] [address] [place] [address], [place] [address] Feb, [facility] [address] [id number] [address] [place] [address], [place] [address] Feb, [facility] [address] [id number] [address] [place] [address], [place] [address] Feb, [facility] [address] [id number] [address] [place] [address], [place] [address] Feb, [facility] [address] [id number] [address] [place] [address], [place] [address] Jan, [facility] [address] [id number] [address] [place] [address], [place] [address] Jan, [facility] [address] [id number] [address] [place] [address], [place] [address] Jan, [facility] [address] [id number] [address] [place] [address], [place] [address] Jan, [facility] [address] [id number] [address] [place] [address], [place] [address] Jan, [facility] [address] [id number] [address] [place] [address], [place] [address] Jan, [facility] [address] [id number] [address] [place] [address], [place] [address] Jan, [facility] [address] [id number] [address] [place] [address], [place] [address] Jan, [facility] [address] [id number] [address] [place] [address], [place] [address] Jan, [facility] [address] [id number] [address] [place] [address], [place] [address] Dec, [facility] [address] [id number] [address] [place] [address], [place] [address] Dec, [facility] [address] [id number] [address] [place] [address], [place] [address] Dec, [facility] [address] [id number] [address] [place] [address], [place] [address] Dec, [facility] [address] [id number] [address] [place] [address], [place] [address] Dec, [facility] [address] [id number] [address] [place] [address], [place] [address] Dec, [facility] [address] [id number] [address] [place] [address], [place] [address] Dec, [facility] [address] [id number] [address] [place] [address], [place] [address] Dec, [facility] [address] [id number] [address] [place] [address], [place] [address] Dec, [facility] [address] [id number] [address] [place] [address], [place] [address] Dec, [facility] [address] [id number] [address] [place] [address], [place] [address] Dec, [facility] [address] [id number] [address] [place] [address], [place] [address] Dec, [facility] [address] [id number] [address] [place] [address], [place] [address] Dec, [facility] [address] [id number] [address] [place] [address], [place] [address] Nov, [facility] [address] [id number] [address] [place] [address], [place] [address] Nov, [facility] [address] [id number] [address] [place] [address], [place] [address] Nov, [facility] [address] [id number] [address] [place] [address], [place] [address] Nov, [facility] [address] [id number] [address] [place] [address], [place] [address] October, [facility] [address] [id number] [address] [place] [address], [place] [address] October, [facility] [address] [id number] [address] [place] [address], [place] [address] October, [facility] [address] [id number] [address] [place] [address], [place] [address] October, [facility] [address] [id number] [address] [place] [address], [place] [address] October, [facility] [address] [id number] [address] [place] [address], [place] [address] October, [facility] [address] [id number] [address] [place] [address], [place] [address] Sep, [facility] [address] [id number] [address] [place] [address], [place] [address] Sep, [facility] [address] [id number] [address] [place] [address], [place] [address] Sep, [facility] [address] [id number] [address] [place] [address], [place] [address] Sep, [facility] [address] [id number] [address] [place] [address], [place] [address] 19 Sep, 2012 [facility] [address] [id number] [address] [place] [address], [place] [address] 16 Sep, 2012 [facility] [address] [id number] [address] [place] [address], [place] [address] Sep, [facility] [address] [id number] [address] [place] [address], [place] [address] Sep, [facility] [address] [id number] [address] [place] [address], [place] [address] Sep, [facility] [address] [id number] [address] [place] [address], [place] [address] Sep, [facility] [address] [id number] [address] [place] [address], [place] [address] Sep, [facility] [address] [id number] [address] [place] [address], [place] [address] Aug, [facility] [address] [id number] [address] [place] [address], [place] [address] Aug, [facility] [address] [id number] [address] [place] [address], [place] [address] 25 Aug, 2012 [facility] [address] [id number] [address] [place] [address], [place] [address] Aug, [facility] [address] [id number] [address] [place] [address], [place] [address] 19 Aug, 2012 [facility] [address] [id number] [address] [place] [address], [place] [address] 18 Aug, 2012 [facility] [address] [id number] [address] [place] [address], [place] [address] 17 Aug, 2012 [facility] [address] [id number] [address] [place] [address], [place] [address] 15 Aug, 2012 [facility] [address] [id number] [address] [place] [address], [place] [address] 15 Aug, 2012 [facility] [address] [id number] [address] [place] [address], [place] [address] Aug, [facility] [address] [id number] [address] [place] [address], [place] [address] Aug, [facility] [address] [id number] [address] [place] [address], [place] [address] Aug, [facility] [address] [id number] [address] [place] [address], [place] [address] Jul, [facility] [address] [id number] [address] [place] [address], [place] [address] Jul, [facility] [address] [id number] [address] [place] [address], [place] [address] Jul, [facility] [address] [id number] [address] [place] [address], [place] [address] Jul, [facility] [address] [id number] [address] [place] [address], [place] [address] Jul, [facility] [address] [id number] [address] [place] [address], [place] [address] Jul, [facility] [address] [id number] [address] [place] [address], [place] [address] Jul, [facility] [address] [id number] [address] [place] [address], [place] [address] Jul, [facility] [address] [id number] [address] [place] [address], [place] [address] Jul, [facility] [address] [id number] [address] [place] [address], [place] [address] Jul, [facility] [address] [id number] [address] [place] [address], [place] [address] May, [facility] [address] [id number] [place] [id number] May, [facility] [address] [id number] [address] [place] [address] May, [facility] [address] [id number] [address] [place] [phone] May, [facility] [address] [id number] [address] [place] [address] May, [facility] [address] [id number] [address] [place] [address] Apr, [facility] [place] [address] [id number] [place] [id number] Apr, [facility] [address] [id number] [address] [place] [address] Apr, [facility] [address] [id number] [address] [place] [address] Mar, [facility] [place] [address] [id number] [place] [id number] Mar, [facility] [address] [id number] [address] [place] [address] Mar, [facility] [place] [address] [id number] [place] [id number] Feb, [facility] [address] [id number] [address] [place] [address] Feb, [facility] [address] [id number] [address] [place] [address] Feb, [facility] [address] [id number] [place] [id number] Feb, [facility] [address] [id number] [place] [id number] Feb, [facility] [place] [address] [id number] [place] [id number] Jan, [facility] [address] [id number] [address] [place] [address] Jan, [facility] [place] [address] [id number] [place] [id number] Jan, [facility] [place] [address] [id number] [place] [id number] Jan, [facility] [place] [address] [id number] [place] [id number] Jan, [facility] [address] [facility] [id number] [address] [place] [address] Jan, [facility] [address] [facility] [id number] [address] [place] [id number] Jan, [facility] [address] [facility] [id number] [address] [place] [address] Aug, [facility] [place] [address] [id number] [place] [id number] Aug, [facility] [address] [facility] [id number] [address] [place] [address] Jul, [facility] [address] [facility] [id number] [address] [place] [address] Jul, [facility] [address] [facility] [id number] [address] [place] [address] Jul, [facility] [place] [address] [id number] [place] [id number] Jul, 2011 [facility] [address] [facility] [id number] [address] [place] [address] Jul, [facility] [address] [id number] [place] [id number] Jul, [facility] [address] [facility] [id number] [address] [place] [address] Jul, [facility] [place] [address] [id number] [place] [id number] Jul, [facility] [place] [address] [id number] [place] [id number] Jul, [facility] [place] [address] [id number] [place] [id number] Jul, [facility] [address] [facility] [id number] [address] [place] [address] May, [facility] [address] [id number] [address] [place] [address] May, [facility] [address] [id number] [address] [place] [id number] May, [facility] [address] [id number] [address] [place] [address] Apr, [facility] [address] [id number] [address] [place] [id number] Jan, [facility] [address] [id number] [address] [place] [address] Jan, [facility] [address] [id number] [address] [place] [id number] Dec, [facility] [address] [id number] [address] [place] [address] Dec, [facility] [address] [id number] [address] [place] [address] May, [facility] [address] [id number] [address] [place] [address] Mar, [facility] [address] [id number] [address] [place] [id number] Mar, [facility] [address] [id number] [address] [place] [id number] 14 Jan, 2009 IMMUNIZATIONS No Known Immunizations [...]
--- OUTSIDE RECORDS SUMMARY | 2020-01-28 13:13 | XMS REPORT ---
Author Author Heydi Candelario Doctor Organization [facility] Address Unknown Phone Unavailable Care Team Providers Care Rn Admit Name Role Phone Migration, Doctor Unavailable Unavailable PROBLEMS Type Condition ICD9-CM Code GNG81-MP Code Onset Dates Condition S tatus SNOMED Code Problem Chronic pain syndrome G89.4 Active 322598718 Problem Sore throat J02.9 Active 07820356 3 Problem Choriocarcinoma C58 Active 1881 63957 Problem retirement current use of anticoagulant Z79.01 Active 519898173 Problem History of venous thromboembolism V12.51 Active 390640801 Problem Cellulitis of unspecified part of limb L03.119 Active 046162731 Problem Gastroesophageal reflux disease without esophagitis K21.9 Active 695851716 Problem History of pulmonary embolism Z86.711 Active 650362343 Problem Pseudotumor cerebri G93.2 Active 12105778 Problem History of DVT (deep vein thrombosis) Z86.718 Active 597438895 ALLERGIES No Information ENCOUNTERS Encounter Location Date Diagnosis [place] [address] [place] [id number] [address] [place] [address] 14 Nov, 2019 Encounter for screening labo ratory testing for COVID-19 virus Z11.59 [place] [address] [place] [id number] [address] [place] [address]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, 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 [place] [address] [facility] [id number] [address] [place] [address] Apr, retirement current use of ant icoagulant Z79.01 [place] [address] [facility] [id number] [address] [place] [address] Apr, Cellulitis of unspecified pa rt of limb L03.119 ; Allergic contact dermatitis due to adhesives L23.1 and Chronic pain syndrome G89.4 [place] [address] [address] Apr, [facility] [address] [address] Apr, retirement current use of ant icoagulant Z79.01 ; Cellulitis of unspecified part of limb L03.119 ; Chronic pain syndrome G89.4 and Anxiety F41.9 [place] [address] [address] Apr, [facility] [address] [address] Apr, [place] [address] [address] Mar, [place] [address] [address] Mar, [place] [address] [address] Mar, Sore throat J02.9 ; Gastroes ophageal reflux disease without esophagitis K21.9 ; Pseudotumor cerebri G93.2 ; Chronic pain syndrome G89.4 ; Choriocarcinoma C58 ; History of pulmonary embolism Z86.711 ; History of DVT (deep vein thrombosis) Z86.718 ; Anxiety F41.9 and Tachycardia R00.0 [place] [address] [place] [id number] [address] [place] [address] Feb, Anxiety 300.00 and Chronic p ain 338.29 [facility] [address] [place] [id number] [address] [place] [address] Feb, [facility] [address] [address] Feb, [facility] [address] [place] [id number] [address] [place] [address] 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, 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 and Dysuria 788.1 [place] [address] [place] [id number] [address] [place] [address] Jan, Dysuria 788.1 [place] [address] [address] Jan, Anxiety 300.00 and Chronic p ain 338.29 [place] [address] [address] Jan, [place] [address] [address] Jan, [place] [address] [address] Jan, [place] [address] [address] Dec, Weakness 780.79 [place] [address] [address] 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, 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 [address] Dec, Palpitations 785.1 ; Tremor 781.0 ; Weakness 780.79 ; retirement current use of anticoagulant therapy V58.61 and Yeast vaginitis 112.1 [place] [address] [place] [id number] [address] [place] [address] Dec, [place] [address] [address] Dec, Cervicalgia 723.1 ; Tachycar yoseph 785.0 ; Pseudotumor cerebri 348.2 and History of venous thromboembolism V12.51 [place] [address] [address] Nov, [place] [address] [place] [id number] [address] [place] [address] Nov, [place] [address] [place] [id number] [place] [address] 24 Nov, 2014 Tachycardia 785.0 ; Pseudotu mor cerebri 348.2 ; Anxiety 300.00 and History of venous thromboembolism V12.51 [facility] [address] [id number] [address] [place] [address] 19 Nov, 2014 [facility] [address] [id number] [address] [place] [address] 18 Nov, 2014 [facility] [address] [id number] [address] [place] [address] 16 Nov, 2014 [facility] [address] [id number] [address] [place] [address] Nov, [facility] [address] [facility] [id number] [address] [place] [address] Nov, [facility] [address] [facility] [id number] [address] [place] [address] Nov, [facility] [address] [id number] [address] [place] [address] Nov, [facility] [address] [facility] [id number] [address] [place] [address] October, [facility] [address] [facility] [id number] [address] [place] [address] October, [facility] [address] [facility] [id number] [address] [place] [address] October, Pain in thoracic spine 724.1 and Tachycardia 785.0 [facility] [address] [id number] [address] [place] [address] October, [facility] [address] [facility] [id number] [address] [place] [address] October, [facility] [address] [facility] [id number] [address] [place] [address] 14 Sep, 2014 [facility] [address] [facility] [id number] [address] [place] [address] Sep, [facility] [address] [id number] [address] [place] [address], [place] [address] Aug, [facility] [address] [id number] [address] [place] [address], [place] [address] Aug, [facility] [address] [id number] [address] [place] [address], [place] [address] Aug, [facility] [address] [id number] [address] [place] [address], [place] [address] Aug, [facility] [address] [id number] [address] [place] [address], [place] [address] Aug, [facility] [address] [id number] [address] [place] [address], [place] [address] Aug, [facility] [address] [id number] [address] [place] [address], [place] [address] Aug, [facility] [address] [id number] [address] [place] [address], [place] [address] Aug, [facility] [address] [id number] [address] [place] [address], [place] [address] Aug, [facility] [address] [id number] [address] [place] [address], [place] [address] Aug, [facility] [address] [id number] [address] [place] [address], [place] [address] Aug, [facility] [address] [id number] [address] [place] [address], [place] [address] Aug, [facility] [address] [id number] [address] [place] [address], [place] [address] Jul, [facility] [address] [id number] [address] [place] [address], [place] [address] Jul, [facility] [address] [id number] [address] [place] [address], [place] [address] Jul, [facility] [address] [id number] [address] [place] [address], [place] [address] 23 Jul, 2014 [facility] [address] [id number] [address] [place] [address], [place] [address] 23 Jul, 2014 [facility] [address] [id number] [address] [place] [address], [place] [address] 23 Jul, 2014 [facility] [address] [id number] [address] [place] [address], [place] [address] 23 Jul, 2014 [facility] [address] [id number] [address] [place] [address], [place] [address] 23 Jul, 2014 [facility] [address] [id number] [address] [place] [address], [place] [address] 20 Jul, 2014 [facility] [address] [id number] [address] [place] [address], [place] [address] 20 Jul, 2014 [facility] [address] [id number] [address] [place] [address] 19 Jul, 2014 [facility] [address] [id number] [address] [place] [address], [place] [address] 19 Jul, 2014 [facility] [address] [id number] [address] [place] [address] 17 Jul, 2014 [facility] [address] [id number] [address] [place] [address] 17 Jul, 2014 [facility] [address] [id number] [address] [place] [address] 16 Jul, 2014 [facility] [address] [id number] [address] [place] [address], [place] [address] 16 Jul, 2014 [facility] [address] [id number] [address] [place] [address] 16 Jul, 2014 [facility] [address] [id number] [address] [place] [address] 16 Jul, 2014 [facility] [address] [id number] [address] [place] [address], [place] [address] 13 Jul, 2014 [facility] [address] [id number] [address] [place] [address], [place] [address] Jul, 2014 [facility] [address] [id number] [address] [place] [address], [place] [address] Jul, 2014 [facility] [address] [id number] [address] [place] [address], [place] [address] Jul, 2014 [facility] [address] [id number] [address] [place] [address], [place] [address] Jul, 2014 [facility] [address] [id number] [address] [place] [address], [place] [address] Jul, [facility] [address] [id number] [address] [place] [address], [place] [address] Jul, 2014 [facility] [address] [id number] [address] [place] [address], [place] [address] Jul, [facility] [address] [id number] [address] [place] [address], [place] [address] Jul, [facility] [address] [id number] [address] [place] [address], [place] [address] Jul, [facility] [address] [id number] [address] [place] [address] Jul, [facility] [address] [id number] [address] [place] [address] Jul, [facility] [address] [id number] [address] [place] [address], [place] [address] Jun, [facility] [address] [id number] [address] [place] [address] Jun, [facility] [address] [id number] [address] [place] [address] Jun, [facility] [address] [id number] [address] [place] [address] Jun, [facility] [address] [id number] [address] [place] [address], [place] [address] Jun, [facility] [address] [id number] [address] [place] [address], [place] [address] Jun, [facility] [address] [id number] [address] [place] [address], [place] [address] Jun, [facility] [address] [id number] [address] [place] [address], [place] [address] Jun, [facility] [address] [id number] [address] [place] [address], [place] [address] Jun, [facility] [address] [id number] [address] [place] [address], [place] [address] Jun, [facility] [address] [id number] [address] [place] [address], [place] [address] Jun, [facility] [address] [id number] [address] [place] [address], [place] [address] Jun, [facility] [address] [id number] [address] [place] [address], [place] [address] Jun, [facility] [address] [id number] [address] [place] [address], [place] [address] Jun, [facility] [address] [id number] [address] [place] [address], [place] [address] Jun, [facility] [address] [id number] [address] [place] [address], [place] [address] Jun, [facility] [address] [id number] [address] [place] [address], [place] [address] Jun, [facility] [address] [id number] [address] [place] [address], [place] [address] Jun, [facility] [address] [id number] [address] [place] [address], [place] [address] Jun, [facility] [address] [id number] [address] [place] [address], [place] [address] Jun, [facility] [address] [id number] [address] [place] [address], [place] [address] May, [facility] [address] [id number] [address] [place] [address], [place] [address] May, [facility] [address] [id number] [address] [place] [address], [place] [address] May, [facility] [address] [id number] [address] [place] [address], [place] [address] May, [facility] [address] [id number] [address] [place] [address], [place] [address] May, [facility] [address] [id number] [address] [place] [address], [place] [address] May, [facility] [address] [id number] [address] [place] [address], [place] [address] May, [facility] [address] [id number] [address] [place] [address], [place] [address] May, [facility] [address] [id number] [address] [place] [address], [place] [address] May, [facility] [address] [id number] [address] [place] [address], [place] [address] May, [facility] [address] [id number] [address] [place] [address], [place] [address] May, [facility] [address] [id number] [address] [place] [address], [place] [address] 18 May, 2014 [facility] [address] [id number] [address] [place] [address], [place] [address] 18 May, 2014 [facility] [address] [id number] [address] [place] [address], [place] [address] 17 May, 2014 [facility] [address] [id number] [address] [place] [address], [place] [address] 16 May, 2014 [facility] [address] [id number] [facility] [place] [address] 16 May, 2014 [facility] [address] [id number] [facility] [place] [address] 15 May, 2014 [facility] [address] [id number] [address] [place] [address], [place] [address] 15 May, 2014 [facility] [address] [id number] [address] [place] [address], [place] [address] May, [facility] [address] [id number] [address] [place] [address], [place] [address] May, [facility] [address] [id number] [address] [place] [address], [place] [address] May, [facility] [address] [id number] [address] [place] [address], [place] [address] May, [facility] [address] [id number] [address] [place] [address], [place] [address] May, [facility] [address] [id number] [address] [place] [address], [place] [address] May, [facility] [address] [id number] [address] [place] [address], [place] [address] May, [facility] [address] [id number] [address] [place] [address], [place] [address] May, [facility] [address] [id number] [address] [place] [address], [place] [address] May, [facility] [address] [id number] [address] [place] [address], [place] [address] May, [facility] [address] [id number] [address] [place] [address], [place] [address] May, [facility] [address] [id number] [address] [place] [address], [place] [address] May, [facility] [address] [id number] [address] [place] [address], [place] [address] 05 May, 2014 [facility] [address] [id number] [address] [place] [address], [place] [address] May, [facility] [address] [id number] [address] [place] [address], [place] [address] May, [facility] [address] [id number] [address] [place] [address], [place] [address] May, [facility] [address] [id number] [address] [place] [address], [place] [address] Apr, [facility] [address] [id number] [address] [place] [address], [place] [address] Apr, [facility] [address] [id number] [address] [place] [address], [place] [address] Apr, [facility] [address] [id number] [address] [place] [address], [place] [address] Apr, [facility] [address] [id number] [address] [place] [address], [place] [address] Apr, [facility] [address] [id number] [address] [place] [address], [place] [address] Apr, [facility] [address] [id number] [address] [place] [address], [place] [address] Apr, [facility] [address] [id number] [address] [place] [address], [place] [address] Apr, [facility] [address] [id number] [address] [place] [address], [place] [address] Apr, [facility] [address] [id number] [address] [place] [address], [place] [address] Apr, [facility] [address] [id number] [address] [place] [address], [place] [address] Mar, [facility] [address] [id number] [address] [place] [address], [place] [address] Mar, [facility] [address] [id number] [address] [place] [address], [place] [address] 31 Mar, 2013 [facility] [address] [id number] [address] [place] [address], [place] [address] Mar, 2013 [facility] [address] [id number] [address] [place] [address], [place] [address] 30 Mar, 2014 [facility] [address] [id number] [address] [place] [address], [place] [address] 30 Mar, 2014 [facility] [address] [id number] [address] [place] [address], [place] [address] Mar, [facility] [address] [id number] [address] [place] [address], [place] [address] Mar, [facility] [address] [id number] [address] [place] [address], [place] [address] Mar, [facility] [address] [id number] [address] [place] [address], [place] [address] Mar, [facility] [address] [id number] [address] [place] [address], [place] [address] Mar, [facility] [address] [id number] [address] [place] [address], [place] [address] Mar, [facility] [address] [id number] [address] [place] [address], [place] [address] Mar, [facility] [address] [id number] [address] [place] [address], [place] [address] Mar, [facility] [address] [id number] [address] [place] [address], [place] [address] Mar, [facility] [address] [id number] [address] [place] [address], [place] [address] Mar, [facility] [address] [id number] [address] [place] [address], [place] [address] Mar, [facility] [address] [id number] [address] [place] [address] Mar, [facility] [address] [id number] [address] [place] [address], [place] [address] Mar, [facility] [address] [id number] [address] [place] [address], [place] [address] Mar, [facility] [address] [id number] [address] [place] [address], [place] [address] 05 Sep, 2013 [facility] [address] [id number] [address] [place] [address], [place] [address] 05 Sep, 2013 [facility] [address] [id number] [address] [place] [address], [place] [address] 04 Feb, 2013 [facility] [address] [id number] [address] [place] [address], [place] [address] 04 Feb, 2013 [facility] [address] [id number] [address] [place] [address], [place] [address] Feb, 2013 [facility] [address] [id number] [address] [place] [address], [place] [address] Feb, 2013 [facility] [address] [id number] [address] [place] [address], [place] [address] Feb, 2013 [facility] [address] [id number] [address] [place] [address], [place] [address] Feb, 2013 [facility] [address] [id number] [address] [place] [address], [place] [address] Feb, 2013 [facility] [address] [id number] [address] [place] [address], [place] [address] Feb, 2013 [facility] [address] [id number] [address] [place] [address], [place] [address] Jan, [facility] [address] [id number] [address] [place] [address], [place] [address] Jan, [facility] [address] [id number] [address] [place] [address], [place] [address] Jan, [facility] [address] [id number] [facility] [place] [address] Jan, [facility] [address] [id number] [facility] [place] [address] Jan, [facility] [address] [id number] [facility] [place] [address] Jan, [facility] [address] [id number] [address] [place] [address], [place] [address] Jan, [facility] [address] [id number] [address] [place] [address], [place] [address] Jan, [facility] [address] [id number] [address] [place] [address], [place] [address] Jan, [facility] [address] [id number] [address] [place] [address], [place] [address] Jan, [facility] [address] [id number] [address] [place] [address], [place] [address] Jan, [facility] [address] [id number] [address] [place] [address], [place] [address] Jan, [facility] [address] [id number] [address] [place] [address], [place] [address] Dec, [facility] [address] [id number] [address] [place] [address], [place] [address] Dec, [facility] [address] [id number] [address] [place] [address], [place] [address] Dec, [facility] [address] [id number] [address] [place] [address], [place] [address] Dec, [facility] [address] [id number] [address] [place] [address], [place] [address] Dec, [facility] [address] [id number] [address] [place] [address], [place] [address] Dec, [facility] [address] [id number] [address] [place] [address], [place] [address] Dec, [facility] [address] [id number] [address] [place] [address], [place] [address] Dec, 2013 [facility] [address] [id number] [address] [place] [address], [place] [address] Dec, [facility] [address] [id number] [address] [place] [address], [place] [address] Dec, [facility] [address] [id number] [address] [place] [address], [place] [address] Dec, [facility] [address] [id number] [address] [place] [address], [place] [address] Dec, [facility] [address] [id number] [address] [place] [address], [place] [address] Nov, [facility] [address] [id number] [address] [place] [address], [place] [address] Nov, [facility] [address] [id number] [address] [place] [address], [place] [address] Nov, [facility] [address] [id number] [address] [place] [address], [place] [address] Nov, [facility] [address] [id number] [address] [place] [address], [place] [address] Nov, [facility] [address] [id number] [address] [place] [address], [place] [address] Nov, [facility] [address] [id number] [address] [place] [address], [place] [address] Nov, [facility] [address] [id number] [address] [place] [address], [place] [address] Nov, [facility] [address] [id number] [address] [place] [address], [place] [address] Nov, [facility] [address] [id number] [address] [place] [address], [place] [address] Nov, [facility] [address] [id number] [address] [place] [address], [place] [address] Nov, [facility] [address] [id number] [address] [place] [address], [place] [address] Nov, [facility] [address] [id number] [address] [place] [address], [place] [address] Nov, [facility] [address] [id number] [address] [place] [address], [place] [address] Nov, [facility] [address] [id number] [address] [place] [address], [place] [address] October, [facility] [address] [id number] [address] [place] [address], [place] [address] October, [facility] [address] [id number] [address] [place] [address], [place] [address] October, [facility] [address] [id number] [address] [place] [address], [place] [address] October, [facility] [address] [id number] [address] [place] [address], [place] [address] October, [facility] [address] [id number] [address] [place] [address], [place] [address] October, [facility] [address] [id number] [address] [place] [address], [place] [address] October, [facility] [address] [id number] [address] [place] [address], [place] [address] October, [facility] [address] [id number] [address] [place] [address], [place] [address] October, [facility] [address] [id number] [address] [place] [address], [place] [address] October, [facility] [address] [id number] [address] [place] [address], [place] [address] October, [facility] [address] [id number] [address] [place] [address], [place] [address] October, [facility] [address] [id number] [facility] [place] [address] Sep, [facility] [address] [id number] [facility] [place] [address] Sep, [facility] [address] [id number] [facility] [place] [address] Sep, [facility] [address] [id number] [address] [place] [address], [place] [address] Sep, [facility] [address] [id number] [address] [place] [address], [place] [address] Sep, [facility] [address] [id number] [address] [place] [address], [place] [address] Sep, [facility] [address] [id number] [address] [place] [address], [place] [address] Aug, [facility] [address] [id number] [address] [place] [address], [place] [address] Aug, [facility] [address] [id number] [address] [place] [address], [place] [address] Aug, [facility] [address] [id number] [address] [place] [address], [place] [address] Aug, [facility] [address] [id number] [address] [place] [address], [place] [address] Aug, [facility] [address] [id number] [address] [place] [address], [place] [address] Aug, [facility] [address] [id number] [address] [place] [address], [place] [address] Jul, [facility] [address] [id number] [address] [place] [address], [place] [address] Jul, [facility] [address] [id number] [address] [place] [address], [place] [address] Jul, [facility] [address] [id number] [address] [place] [address], [place] [address] Jul, [facility] [address] [id number] [address] [place] [address], [place] [address] Jul, [facility] [address] [id number] [address] [place] [address], [place] [address] Jul, [facility] [address] [id number] [address] [place] [address], [place] [address] Jul, [facility] [address] [id number] [address] [place] [address], [place] [address] Jul, [facility] [address] [id number] [address] [place] [address], [place] [address] Jul, [facility] [address] [id number] [address] [place] [address], [place] [address] Jul, [facility] [address] [id number] [address] [place] [address], [place] [address] Jun, [facility] [address] [id number] [address] [place] [address], [place] [address] Jun, [facility] [address] [id number] [address] [place] [address], [place] [address] Jun, [facility] [address] [id number] [address] [place] [address], [place] [address] Jun, [facility] [address] [id number] [address] [place] [address], [place] [address] Jun, [facility] [address] [id number] [address] [place] [address], [place] [address] Jun, [facility] [address] [id number] [address] [place] [address], [place] [address] Jun, [facility] [address] [id number] [address] [place] [address], [place] [address] Jun, [facility] [address] [id number] [address] [place] [address], [place] [address] May, [facility] [address] [id number] [address] [place] [address], [place] [address] May, [facility] [address] [id number] [address] [place] [address], [place] [address] May, [facility] [address] [id number] [address] [place] [address], [place] [address] May, [facility] [address] [id number] [address] [place] [address], [place] [address] May, [facility] [address] [id number] [address] [place] [address], [place] [address] May, [facility] [address] [id number] [address] [place] [address], [place] [address] May, [facility] [address] [id number] [address] [place] [address], [place] [address] May, [facility] [address] [id number] [address] [place] [address], [place] [address] Apr, [facility] [address] [id number] [address] [place] [address], [place] [address] Apr, [facility] [address] [id number] [address] [place] [address], [place] [address] Apr, [facility] [address] [id number] [address] [place] [address], [place] [address] Apr, [facility] [address] [id number] [address] [place] [address], [place] [address] Apr, [facility] [address] [id number] [address] [place] [address], [place] [address] Apr, [facility] [address] [id number] [address] [place] [address], [place] [address] Mar, [facility] [address] [id number] [address] [place] [address], [place] [address] Mar, [facility] [address] [id number] [address] [place] [address], [place] [address] Mar, [facility] [address] [id number] [address] [place] [address], [place] [address] Mar, [facility] [address] [id number] [address] [place] [address], [place] [address] Mar, [facility] [address] [id number] [address] [place] [address], [place] [address] Mar, [facility] [address] [id number] [address] [place] [address], [place] [address] Mar, [facility] [address] [id number] [address] [place] [address], [place] [address] 30 Feb, 2013 [facility] [address] [id number] [address] [place] [address], [place] [address] 30 Feb, 2013 [facility] [address] [id number] [address] [place] [address], [place] [address] Feb, [facility] [address] [id number] [address] [place] [address], [place] [address] Feb, [facility] [address] [id number] [address] [place] [address], [place] [address] Feb, [facility] [address] [id number] [address] [place] [address], [place] [address] Feb, [facility] [address] [id number] [address] [place] [address], [place] [address] Jan, [facility] [address] [id number] [address] [place] [address], [place] [address] Jan, [facility] [address] [id number] [address] [place] [address], [place] [address] Jan, [facility] [address] [id number] [address] [place] [address], [place] [address] Jan, [facility] [address] [id number] [address] [place] [address], [place] [address] Jan, [facility] [address] [id number] [address] [place] [address], [place] [address] Jan, [facility] [address] [id number] [address] [place] [address], [place] [address] Jan, [facility] [address] [id number] [address] [place] [address], [place] [address] Jan, [facility] [address] [id number] [address] [place] [address], [place] [address] Jan, [facility] [address] [id number] [address] [place] [address], [place] [address] Dec, [facility] [address] [id number] [address] [place] [address], [place] [address] Dec, [facility] [address] [id number] [address] [place] [address], [place] [address] Dec, [facility] [address] [id number] [address] [place] [address], [place] [address] Dec, [facility] [address] [id number] [address] [place] [address], [place] [address] Dec, [facility] [address] [id number] [address] [place] [address], [place] [address] Dec, [facility] [address] [id number] [address] [place] [address], [place] [address] Dec, [facility] [address] [id number] [address] [place] [address], [place] [address] Dec, [facility] [address] [id number] [address] [place] [address], [place] [address] Dec, [facility] [address] [id number] [address] [place] [address], [place] [address] Dec, [facility] [address] [id number] [address] [place] [address], [place] [address] Dec, [facility] [address] [id number] [address] [place] [address], [place] [address] Dec, [facility] [address] [id number] [address] [place] [address], [place] [address] Dec, [facility] [address] [id number] [address] [place] [address], [place] [address] Nov, [facility] [address] [id number] [address] [place] [address], [place] [address] Nov, [facility] [address] [id number] [address] [place] [address], [place] [address] Nov, [facility] [address] [id number] [address] [place] [address], [place] [address] Nov, [facility] [address] [id number] [address] [place] [address], [place] [address] October, [facility] [address] [id number] [address] [place] [address], [place] [address] October, [facility] [address] [id number] [address] [place] [address], [place] [address] October, [facility] [address] [id number] [address] [place] [address], [place] [address] October, [facility] [address] [id number] [address] [place] [address], [place] [address] October, [facility] [address] [id number] [address] [place] [address], [place] [address] October, [facility] [address] [id number] [address] [place] [address], [place] [address] Sep, [facility] [address] [id number] [address] [place] [address], [place] [address] Sep, [facility] [address] [id number] [address] [place] [address], [place] [address] Sep, [facility] [address] [id number] [address] [place] [address], [place] [address] Sep, [facility] [address] [id number] [address] [place] [address], [place] [address] 19 Sep, 2012 [facility] [address] [id number] [address] [place] [address], [place] [address] 16 Sep, 2012 [facility] [address] [id number] [address] [place] [address], [place] [address] Sep, [facility] [address] [id number] [address] [place] [address], [place] [address] Sep, [facility] [address] [id number] [address] [place] [address], [place] [address] Sep, [facility] [address] [id number] [address] [place] [address], [place] [address] Sep, [facility] [address] [id number] [address] [place] [address], [place] [address] Sep, [facility] [address] [id number] [address] [place] [address], [place] [address] Aug, [facility] [address] [id number] [address] [place] [address], [place] [address] Aug, [facility] [address] [id number] [address] [place] [address], [place] [address] 25 Aug, 2012 [facility] [address] [id number] [address] [place] [address], [place] [address] Aug, [facility] [address] [id number] [address] [place] [address], [place] [address] 19 Aug, 2012 [facility] [address] [id number] [address] [place] [address], [place] [address] 18 Aug, 2012 [facility] [address] [id number] [address] [place] [address], [place] [address] 17 Aug, 2012 [facility] [address] [id number] [address] [place] [address], [place] [address] 15 Aug, 2012 [facility] [address] [id number] [address] [place] [address], [place] [address] 15 Aug, 2012 [facility] [address] [id number] [address] [place] [address], [place] [address] Aug, [facility] [address] [id number] [address] [place] [address], [place] [address] Aug, [facility] [address] [id number] [address] [place] [address], [place] [address] Aug, [facility] [address] [id number] [address] [place] [address], [place] [address] Jul, [facility] [address] [id number] [address] [place] [address], [place] [address] Jul, [facility] [address] [id number] [address] [place] [address], [place] [address] Jul, [facility] [address] [id number] [address] [place] [address], [place] [address] Jul, [facility] [address] [id number] [address] [place] [address], [place] [address] Jul, [facility] [address] [id number] [address] [place] [address], [place] [address] Jul, [facility] [address] [id number] [address] [place] [address], [place] [address] Jul, [facility] [address] [id number] [address] [place] [address], [place] [address] Jul, [facility] [address] [id number] [address] [place] [address], [place] [address] Jul, [facility] [address] [id number] [address] [place] [address], [place] [address] Jul, [facility] [address] [id number] [address] [place] [address], [place] [address] May, [facility] [address] [id number] [id number] May, [facility] [address] [id number] [place] [address] May, [facility] [address] [id number] [address] [place] [id number] May, [facility] [address] [id number] [address] [place] [id number] May, [facility] [address] [id number] [address] [place] [id number] Apr, [facility] [address] [id number] [place] [id number] Apr, [facility] [address] [id number] [address] [place] [id number] Apr, [facility] [address] [id number] [address] [place] [id number] Mar, [facility] [address] [id number] [place] [id number] Mar, [facility] [address] [id number] [address] [place] [id number] Mar, [facility] [address] [id number] [place] [id number] Feb, [facility] [address] [id number] [address] [place] [id number] Feb, [facility] [address] [id number] [address] [place] [id number] Feb, [facility] [address] [id number] [place] [id number] Feb, [facility] [address] [id number] [place] [id number] Feb, [facility] [place] [address] [id number] [place] [id number] Jan, [facility] [address] [id number] [address] [place] [id number] Jan, [facility] [place] [address] [id number] [place] [id number] Jan, [facility] [place] [address] [id number] [place] [id number] Jan, [facility] [address] [id number] [place] [id number] Jan, [facility] [address] [facility] [id number] [place] [address] Jan, [facility] [address] [facility] [id number] [address] [place] [id number] Jan, [facility] [address] [facility] [id number] [address] [place] [id number] Aug, [facility] [place] [address] [id number] [place] [id number] Aug, [facility] [address] [facility] [id number] [address] [place] [id number] Jul, [facility] [address] [facility] [id number] [address] [place] [id number] Jul, [facility] [address] [facility] [id number] [address] [place] [id number] Jul, [facility] [place] [address] [id number] [place] [id number] Jul, 2011 [facility] [address] [facility] [id number] [address] [place] [id number] Jul, [facility] [place] [address] [id number] [place] [id number] Jul, [facility] [address] [facility] [id number] [address] [place] [id number] Jul, [facility] [place] [address] [id number] [place] [id number] Jul, [facility] [place] [address] [id number] [place] [id number] Jul, [facility] [address] [id number] [place] [id number] Jul, [facility] [address] [facility] [id number] [address] [place] [id number] May, [facility] [address] [id number] [address] [place] [id number] May, [facility] [address] [id number] [address] [place] [id number] May, [facility] [address] [id number] [address] [place] [id number] Apr, [facility] [address] [id number] [address] [place] [id number] Jan, [facility] [address] [id number] [address] [place] [id number] Jan, [facility] [address] [id number] [address] [place] [id number] Dec, [facility] [address] [id number] [address] [place] [id number] Dec, [facility] [address] [id number] [address] [place] [id number] May, [facility] [address] [id number] [address] [place] [id number] Mar, [facility] [address] [id number] [address] [place] [id number] Mar, [facility] [address] [id number] [address] [place] [id number] 14 Jan, 2009 IMMUNIZATIONS No Known Immunizations SOCIAL HISTORY Never Assessed REASON FOR VISIT PLAN OF CARE VITAL SIGNS MEDICATIONS Unknown Medications RESULTS No Results PROCEDURES Procedure Date Ordered Result Body Site PROTHROMBIN TIME May 21, 2013 INSTRUCTIONS MEDICATIONS ADMINISTERED No Known Medications [...]
--- OUTSIDE RECORDS SUMMARY | 2020-01-28 13:13 | XMS REPORT ---
Author Author Heydi MARINO Organization [facility] Address [address] [place] [address] Care Team Providers Care Continuous Improvement Manager Name Role Phone CELESTE MARINO Unavailable PROBLEMS Type Condition ICD9-CM Code KTI47-CG Code Onset Dates Condition S tatus SNOMED Code Problem Chronic pain syndrome G89.4 Active 789251496 Problem Sore throat J02.9 Active 85357828 3 Problem Choriocarcinoma C58 Active 1881 79582 Problem jail current use of anticoagulant Z79.01 Active 787755347 Problem History of venous thromboembolism V12.51 Active 521569659 Problem Cellulitis of unspecified part of limb L03.119 Active 081013119 Problem Gastroesophageal reflux disease without esophagitis K21.9 Active 367532187 Problem History of pulmonary embolism Z86.711 Active 619052895 Problem Pseudotumor cerebri G93.2 Active 88718045 Problem History of DVT (deep vein thrombosis) Z86.718 Active 589188670 ALLERGIES No Information ENCOUNTERS Encounter Location Date Diagnosis [place] [address] [place] [id number] [place] [phone] 14 Nov, 2019 Encounter for screening labo ratory testing for COVID-19 virus Z11.59 [place] [address] [place] [id number] [address] [place] [address] Apr, 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 [address] [facility] [id number] [address] [place] [address] Apr, [facility] [address] [facility] [id number] [address] [place] [address] Apr, jail current use of ant icoagulant Z79.01 ; Cellulitis of unspecified part of limb L03.119 ; Chronic pain syndrome G89.4 and Anxiety F41.9 [place] [address] [place] [id number] [address] [place] [address] Apr, [place] [address] [place] [id number] [place] [address] Apr, [place] [address] [place] [id number] [place] [address] Mar, [place] [address] [place] [id number] [place] [address] Mar, [place] [address] [place] [id number] [place] [address] Mar, Sore throat J02.9 ; Gastroes ophageal reflux disease without esophagitis K21.9 ; Pseudotumor cerebri G93.2 ; Chronic pain syndrome G89.4 ; Choriocarcinoma C58 ; History of pulmonary embolism Z86.711 ; History of DVT (deep vein thrombosis) Z86.718 ; Anxiety F41.9 and Tachycardia R00.0 [place] [address] [place] [id number] [address] [place] [address] Feb, Anxiety 300.00 and Chronic p ain 338.29 [place] [address] [place] [id number] [address] [place] [address] Feb, [place] [address] [place] [id number] [place] [address] Feb, [place] [address] [place] [id number] [address] [place] [address] Jan, jail current use of ant icoagulant therapy V58.61 and Dysuria 788.1 [place] [address] [facility] [id number] [address] [place] [address] Jan, Dysuria 788.1 [place] [address] [facility] [id number] [address] [place] [address] Jan, Anxiety 300.00 and Chronic p ain 338.29 [place] [address] [facility] [id number] [address] [place] [address] Jan, [place] [address] [place] [id number] [address] [place] [address] Jan, [place] [address] [place] [id number] [address] [place] [address] Jan, [place] [address] [place] [id number] [address] [place] [address] Dec, Weakness 780.79 [place] [address] [place] [id number] [address] [place] [address] Dec, jail current use of ant icoagulant therapy V58.61 [place] [address] [place] [id number] [address] [place] [address] Dec, Palpitations 785.1 ; Tremor 781.0 ; Weakness 780.79 ; 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 [address] [id number] [address] [place] [address] Nov, Tachycardia 785.0 ; Pseudotu mor cerebri 348.2 ; Anxiety 300.00 and History of venous thromboembolism V12.51 [facility] [address] [id number] [address] [place] [address] Nov, [facility] [address] [id number] [address] [place] [address] Nov, [facility] [address] [id number] [address] [place] [address] Nov, [facility] [address] [id number] [address] [place] [address] Nov, [facility] [address] [facility] [id number] [address] [place] [address] Nov, [facility] [address] [id number] [address] [place] [address] Nov, [facility] [address] [id number] [address] [place] [address] Nov, [facility] [address] [facility] [id number] [address] [place] [phone] October, [facility] [address] [id number] [address] [place] [address] October, [facility] [address] [facility] [id number] [address] [place] [phone] October, Pain in thoracic spine 724.1 and Tachycardia 785.0 [facility] [address] [id number] [address] [place] [address] October, [facility] [address] [facility] [id number] [address] [place] [address] October, [facility] [address] [facility] [id number] [address] [place] [phone] 14 Sep, 2014 [facility] [address] [id number] [facility] [address] 13 Sep, 2014 [facility] [address] [id number] [address] [place] [address], [place] [address] 25 Aug, 2014 [facility] [address] [id number] [address] [place] [address], [place] [address] 25 Aug, 2014 [facility] [address] [id number] [address] [place] [address], [place] [address] 17 Aug, 2014 [facility] [address] [id number] [address] [place] [address], [place] [address] 17 Aug, 2014 [facility] [address] [id number] [address] [place] [address], [place] [address] 16 Aug, 2014 [facility] [address] [id number] [address] [place] [address], [place] [address] Aug, [facility] [address] [id number] [address] [place] [address], [place] [address] Aug, [facility] [address] [id number] [address] [place] [address], [place] [address] Aug, [facility] [address] [id number] [address] [place] [address], [place] [address] Aug, [facility] [address] [id number] [address] [place] [address], [place] [address] Aug, [facility] [address] [id number] [address] [place] [address], [place] [address] Aug, [facility] [address] [id number] [address] [place] [address], [place] [address] Aug, [facility] [address] [id number] [address] [place] [address], [place] [address] Jul, [facility] [address] [id number] [address] [place] [address], [place] [address] Jul, [facility] [address] [id number] [address] [place] [address], [place] [address] 23 Jul, 2014 [facility] [address] [id number] [address] [place] [address], [place] [address] Jul, 2014 [facility] [address] [id number] [address] [place] [address], [place] [address] 23 Jul, 2014 [facility] [address] [id number] [address] [place] [address], [place] [address] 23 Jul, 2014 [facility] [address] [id number] [address] [place] [address], [place] [address] Jul, 2014 [facility] [address] [id number] [address] [place] [address], [place] [address] Jul, 2014 [facility] [address] [id number] [address] [place] [phone] 20 Jul, 2014 [facility] [address] [id number] [address] [place] [address], [place] [address] 20 Jul, 2014 [facility] [address] [id number] [address] [place] [address], [place] [address] 19 Jul, 2014 [facility] [address] [id number] [address] [place] [phone] 19 Jul, 2014 [facility] [address] [id number] [address] [place] [address] 17 Jul, 2014 [facility] [address] [id number] [address] [place] [address] 17 Jul, 2014 [facility] [address] [id number] [address] [place] [address], [place] [address] 16 Jul, 2014 [facility] [address] [id number] [address] [place] [address] 16 Jul, 2014 [facility] [address] [id number] [address] [place] [phone] 16 Jul, 2014 [facility] [address] [id number] [address] [place] [phone] 16 Jul, 2014 [facility] [address] [id number] [address] [place] [address], [place] [address] Jul, 2014 [facility] [address] [id number] [address] [place] [address], [place] [address] Jul, 2014 [facility] [address] [id number] [address] [place] [address], [place] [address] Jul, 2014 [facility] [address] [id number] [address] [place] [address], [place] [address] Jul, 2014 [facility] [address] [id number] [address] [place] [address], [place] [address] Jul, 2014 [facility] [address] [id number] [address] [place] [address], [place] [address] Jul, 2014 [facility] [address] [id number] [address] [place] [address], [place] [address] Jul, 2014 [facility] [address] [id number] [address] [place] [address], [place] [address] Jul, [facility] [address] [id number] [address] [place] [address], [place] [address] Jul, [facility] [address] [id number] [address] [place] [address] Jul, [facility] [address] [id number] [address] [place] [address], [place] [address] Jul, [facility] [address] [id number] [address] [place] [address] Jul, [facility] [address] [id number] [address] [place] [address], [place] [address] Jun, [facility] [address] [id number] [address] [place] [address] Jun, [facility] [address] [id number] [address] [place] [address] Jun, [facility] [address] [id number] [address] [place] [address], [place] [address] Jun, [facility] [address] [id number] [address] [place] [address], [place] [address] Jun, [facility] [address] [id number] [address] [place] [address], [place] [address] Jun, [facility] [address] [id number] [address] [place] [address], [place] [address] Jun, [facility] [address] [id number] [address] [place] [address], [place] [address] Jun, [facility] [address] [id number] [address] [place] [address], [place] [address] Jun, [facility] [address] [id number] [address] [place] [address], [place] [address] Jun, [facility] [address] [id number] [address] [place] [address], [place] [address] Jun, [facility] [address] [id number] [address] [place] [address], [place] [address] Jun, [facility] [address] [id number] [address] [place] [address], [place] [address] Jun, [facility] [address] [id number] [address] [place] [address] Jun, [facility] [address] [id number] [address] [place] [address] Jun, [facility] [address] [id number] [address] [place] [address], [place] [address] Jun, [facility] [address] [id number] [address] [place] [address] Jun, [facility] [address] [id number] [address] [place] [address], [place] [address] Jun, [facility] [address] [id number] [address] [place] [address], [place] [address] 08 Jun, 2014 [facility] [address] [id number] [address] [place] [address], [place] [address] Jun, [facility] [address] [id number] [address] [place] [address], [place] [address] May, [facility] [address] [id number] [address] [place] [address], [place] [address] May, [facility] [address] [id number] [address] [place] [address], [place] [address] May, [facility] [address] [id number] [address] [place] [address], [place] [address] May, [facility] [address] [id number] [address] [place] [address], [place] [address] May, [facility] [address] [id number] [address] [place] [address], [place] [address] May, [facility] [address] [id number] [address] [place] [address], [place] [address] May, [facility] [address] [id number] [address] [place] [address], [place] [address] May, [facility] [address] [id number] [address] [place] [address], [place] [address] May, [facility] [address] [id number] [address] [place] [address], [place] [address] May, [facility] [address] [id number] [address] [place] [address] [address] 2014 [facility] [address] [id number] [address] [place] [address], [place] [address] 18 May, 2014 [facility] [address] [id number] [address] [place] [address], [place] [address] 18 May, 2014 [facility] [address] [id number] [address] [place] [address], [place] [address] 17 May, 2014 [facility] [address] [id number] [address] [place] [address], [place] [address] 16 May, 2014 [facility] [address] [id number] [address] [place] [address], [place] [address] 16 May, 2014 [facility] [address] [id number] [address] [place] [address], [place] [address] 15 May, 2014 [facility] [address] [id number] [address] [place] [address], [place] [address] 15 May, 2014 [facility] [address] [id number] [address] [place] [address], [place] [address] May, [facility] [address] [id number] [address] [place] [address], [place] [address] May, [facility] [address] [id number] [address] [place] [address], [place] [address] May, [facility] [address] [id number] [address] [place] [address], [place] [address] May, [facility] [address] [id number] [address] [place] [address], [place] [address] May, [facility] [address] [id number] [address] [place] [address], [place] [address] May, [facility] [address] [id number] [address] [place] [address], [place] [address] May, [facility] [address] [id number] [address] [place] [address], [place] [address] May, [facility] [address] [id number] [address] [place] [address], [place] [address] May, [facility] [address] [id number] [address] [place] [address], [place] [address] May, [facility] [address] [id number] [address] [place] [address], [place] [address] 08 May, 2014 [facility] [address] [id number] [address] [place] [address], [place] [address] May, [facility] [address] [id number] [address] [place] [address], [place] [address] May, [facility] [address] [id number] [address] [place] [address], [place] [address] May, [facility] [address] [id number] [address] [place] [address], [place] [address] May, [facility] [address] [id number] [address] [place] [address], [place] [address] May, [facility] [address] [id number] [address] [place] [address], [place] [address] Apr, [facility] [address] [id number] [address] [place] [address], [place] [address] Apr, [facility] [address] [id number] [address] [place] [address], [place] [address] Apr, [facility] [address] [id number] [address] [place] [address], [place] [address] Apr, [facility] [address] [id number] [address] [place] [address], [place] [address] Apr, [facility] [address] [id number] [address] [place] [address], [place] [address] Apr, [facility] [address] [id number] [address] [place] [address], [place] [address] Apr, [facility] [address] [id number] [address] [place] [address], [place] [address] Apr, [facility] [address] [id number] [address] [place] [address], [place] [address] Apr, [facility] [address] [id number] [address] [place] [address], [place] [address] Apr, [facility] [address] [id number] [address] [place] [address], [place] [address] Mar, [facility] [address] [id number] [address] [place] [address], [place] [address] 31 Mar, 2013 [facility] [address] [id number] [address] [place] [address], [place] [address] 31 Mar, 2013 [facility] [address] [id number] [address] [place] [address], [place] [address] 31 Mar, 2013 [facility] [address] [id number] [address] [place] [address], [place] [address] 30 Mar, 2013 [facility] [address] [id number] [address] [place] [address], [place] [address] 30 Mar, 2013 [facility] [address] [id number] [address] [place] [address], [place] [address] Mar, 2013 [facility] [address] [id number] [address] [place] [address], [place] [address] Mar, 2013 [facility] [address] [id number] [address] [place] [address], [place] [address] 15 Mar, 2013 [facility] [address] [id number] [address] [place] [address], [place] [address] 15 Mar, 2013 [facility] [address] [id number] [address] [place] [address], [place] [address] 15 Mar, 2013 [facility] [address] [id number] [address] [place] [address], [place] [address] 15 Mar, 2013 [facility] [address] [id number] [address] [place] [address], [place] [address] Mar, 2013 [facility] [address] [id number] [address] [place] [address], [place] [address] Mar, 2013 [facility] [address] [id number] [address] [place] [address], [place] [address] Mar, 2013 [facility] [address] [id number] [address] [place] [address], [place] [address] Mar, 2013 [facility] [address] [id number] [address] [place] [address], [place] [address] Mar, 2013 [facility] [address] [id number] [address] [place] [address], [place] [address] Mar, 2013 [facility] [address] [id number] [address] [place] [address], [place] [address] Mar, 2013 [facility] [address] [id number] [address] [place] [address], [place] [address] Mar, 2013 [facility] [address] [id number] [address] [place] [address], [place] [address] 05 Feb, 2013 [facility] [address] [id number] [address] [place] [address], [place] [address] 05 Sep, 2013 [facility] [address] [id number] [address] [place] [address], [place] [address] 04 Feb, 2013 [facility] [address] [id number] [address] [place] [address], [place] [address] 04 Feb, 2013 [facility] [address] [id number] [address] [place] [address], [place] [address] Feb, 2013 [facility] [address] [id number] [address] [place] [address], [place] [address] Feb, 2013 [facility] [address] [id number] [address] [place] [address], [place] [address] Feb, 2013 [facility] [address] [id number] [address] [place] [address], [place] [address] Feb, 2013 [facility] [address] [id number] [address] [place] [address], [place] [address] Feb, 2013 [facility] [address] [id number] [address] [place] [address], [place] [address] Feb, 2013 [facility] [address] [id number] [address] [place] [address], [place] [address] Jan, [facility] [address] [id number] [address] [place] [address], [place] [address] Jan, [facility] [address] [id number] [address] [place] [address], [place] [address] Jan, [facility] [address] [id number] [address] [address] Jan, [facility] [address] [id number] [address] [place] [address], [place] [address] Jan, [facility] [address] [id number] [address] [place] [address], [place] [address] Jan, [facility] [address] [id number] [address] [place] [address], [place] [address] Jan, [facility] [address] [id number] [address] [place] [address], [place] [address] Jan, [facility] [address] [id number] [address] [place] [address], [place] [address] Jan, [facility] [address] [id number] [address] [place] [address], [place] [address] Jan, [facility] [address] [id number] [address] [place] [address], [place] [address] Jan, [facility] [address] [id number] [address] [place] [address], [place] [address] Jan, [facility] [address] [id number] [address] [place] [address], [place] [address] Dec, [facility] [address] [id number] [address] [place] [address], [place] [address] Dec, [facility] [address] [id number] [address] [place] [address], [place] [address] Dec, [facility] [address] [id number] [address] [place] [address], [place] [address] Dec, [facility] [address] [id number] [address] [place] [address], [place] [address] Dec, [facility] [address] [id number] [address] [place] [address], [place] [address] Dec, [facility] [address] [id number] [address] [place] [address] 10 Dec, 2013 [facility] [address] [id number] [facility] [place] [address] 10 Dec, 2013 [facility] [address] [id number] [address] [place] [address], [place] [address] 07 Dec, 2013 [facility] [address] [id number] [address] [place] [address], [place] [address] 07 Dec, 2013 [facility] [address] [id number] [address] [place] [address], [place] [address] Dec, 2013 [facility] [address] [id number] [address] [place] [address], [place] [address] Dec, 2013 [facility] [address] [id number] [address] [place] [address], [place] [address] Nov, [facility] [address] [id number] [address] [place] [address], [place] [address] Nov, [facility] [address] [id number] [address] [place] [address], [place] [address] Nov, [facility] [address] [id number] [address] [place] [address], [place] [address] Nov, [facility] [address] [id number] [address] [place] [address], [place] [address] 17 Nov, 2013 [facility] [address] [id number] [address] [place] [address], [place] [address] 17 Nov, 2013 [facility] [address] [id number] [address] [place] [address], [place] [address] 09 Nov, 2013 [facility] [address] [id number] [address] [place] [address], [place] [address] Nov, [facility] [address] [id number] [address] [place] [address], [place] [address] 05 Nov, 2013 [facility] [address] [id number] [address] [place] [address], [place] [address] Nov, [facility] [address] [id number] [address] [place] [address] Nov, [facility] [address] [id number] [address] [place] [address], [place] [address] Nov, [facility] [address] [id number] [address] [place] [address], [place] [address] Nov, [facility] [address] [id number] [address] [place] [address], [place] [address] Nov, [facility] [address] [id number] [address] [address] October, [facility] [address] [id number] [address] [place] [address], [place] [address] October, [facility] [address] [id number] [address] [place] [address], [place] [address] October, [facility] [address] [id number] [address] [place] [address], [place] [address] October, [facility] [address] [id number] [address] [place] [address], [place] [address] October, [facility] [address] [id number] [address] [place] [address], [place] [address] October, [facility] [address] [id number] [address] [place] [address], [place] [address] October, [facility] [address] [id number] [address] [place] [address], [place] [address] October, [facility] [address] [id number] [address] [place] [address], [place] [address] October, [facility] [address] [id number] [address] [place] [address], [place] [address] October, [facility] [address] [id number] [address] [place] [address], [place] [address] October, [facility] [address] [id number] [address] [address] October, [facility] [address] [id number] [address] [place] [address], [place] [address] Sep, [facility] [address] [id number] [address] [address] Sep, [facility] [address] [id number] [address] [place] [address], [place] [address] Sep, [facility] [address] [id number] [address] [place] [address], [place] [address] Sep, [facility] [address] [id number] [address] [place] [address], [place] [address] Sep, [facility] [address] [id number] [address] [place] [address], [place] [address] Sep, [facility] [address] [id number] [address] [place] [address], [place] [address] Aug, [facility] [address] [id number] [address] [place] [address], [place] [address] Aug, [facility] [address] [id number] [address] [place] [address], [place] [address] Aug, [facility] [address] [id number] [address] [place] [address], [place] [address] Aug, [facility] [address] [id number] [address] [place] [address], [place] [address] Aug, [facility] [address] [id number] [address] [place] [address], [place] [address] Aug, [facility] [address] [id number] [address] [place] [address], [place] [address] Jul, [facility] [address] [id number] [address] [place] [address], [place] [address] Jul, [facility] [address] [id number] [address] [place] [address], [place] [address] Jul, [facility] [address] [id number] [address] [address] Jul, [facility] [address] [id number] [address] [place] [address], [place] [address] Jul, [facility] [address] [id number] [address] [place] [address], [place] [address] Jul, [facility] [address] [id number] [address] [place] [address], [place] [address] Jul, [facility] [address] [id number] [address] [place] [address], [place] [address] Jul, [facility] [address] [id number] [address] [place] [address], [place] [address] Jul, [facility] [address] [id number] [address] [place] [address], [place] [address] Jul, [facility] [address] [id number] [address] [place] [address], [place] [address] Jun, [facility] [address] [id number] [address] [place] [address], [place] [address] Jun, [facility] [address] [id number] [address] [place] [address], [place] [address] Jun, [facility] [address] [id number] [address] [place] [address], [place] [address] Jun, [facility] [address] [id number] [address] [place] [address], [place] [address] Jun, [facility] [address] [id number] [address] [place] [address], [place] [address] Jun, [facility] [address] [id number] [address] [place] [address], [place] [address] Jun, [facility] [address] [id number] [address] [place] [address], [place] [address] Jun, [facility] [address] [id number] [address] [place] [address], [place] [address] May, [facility] [address] [id number] [address] [place] [address], [place] [address] May, [facility] [address] [id number] [address] [place] [address], [place] [address] May, [facility] [address] [id number] [address] [place] [address], [place] [address] May, [facility] [address] [id number] [address] [place] [address], [place] [address] May, [facility] [address] [id number] [address] [place] [address], [place] [address] May, [facility] [address] [id number] [address] [place] [address], [place] [address] May, [facility] [address] [id number] [address] [place] [address], [place] [address] May, [facility] [address] [id number] [address] [place] [address], [place] [address] Apr, [facility] [address] [id number] [address] [place] [address], [place] [address] Apr, [facility] [address] [id number] [address] [place] [address], [place] [address] Apr, [facility] [address] [id number] [address] [place] [address], [place] [address] Apr, [facility] [address] [id number] [address] [place] [address], [place] [address] Apr, [facility] [address] [id number] [address] [place] [address], [place] [address] Apr, [facility] [address] [id number] [address] [place] [address], [place] [address] Mar, [facility] [address] [id number] [address] [place] [address], [place] [address] Mar, [facility] [address] [id number] [address] [place] [address], [place] [address] Mar, [facility] [address] [id number] [address] [place] [address], [place] [address] Mar, [facility] [address] [id number] [address] [place] [address], [place] [address] Mar, [facility] [address] [id number] [address] [place] [address], [place] [address] Mar, [facility] [address] [id number] [address] [place] [address], [place] [address] Mar, [facility] [address] [id number] [address] [place] [address], [place] [address] 30 Feb, 2013 [facility] [address] [id number] [address] [place] [address], [place] [address] 30 Feb, 2013 [facility] [address] [id number] [address] [place] [address], [place] [address] 27 Feb, 2013 [facility] [address] [id number] [address] [place] [address], [place] [address] Feb, [facility] [address] [id number] [address] [place] [address], [place] [address] Feb, [facility] [address] [id number] [address] [place] [address], [place] [address] Feb, [facility] [address] [id number] [address] [place] [address], [place] [address] Jan, [facility] [address] [id number] [address] [place] [address], [place] [address] Jan, [facility] [address] [id number] [address] [place] [address], [place] [address] Jan, [facility] [address] [id number] [address] [place] [address], [place] [address] Jan, [facility] [address] [id number] [address] [place] [address], [place] [address] Jan, [facility] [address] [id number] [address] [place] [address], [place] [address] Jan, [facility] [address] [id number] [address] [place] [address], [place] [address] Jan, [facility] [address] [id number] [address] [place] [address], [place] [address] Jan, [facility] [address] [id number] [address] [place] [address], [place] [address] Jan, [facility] [address] [id number] [address] [place] [address], [place] [address] Dec, [facility] [address] [id number] [address] [place] [address], [place] [address] Dec, [facility] [address] [id number] [address] [place] [address], [place] [address] Dec, [facility] [address] [id number] [address] [place] [address], [place] [address] Dec, [facility] [address] [id number] [address] [place] [address], [place] [address] Dec, [facility] [address] [id number] [address] [place] [address], [place] [address] Dec, [facility] [address] [id number] [address] [place] [address], [place] [address] Dec, [facility] [address] [id number] [address] [place] [address], [place] [address] Dec, [facility] [address] [id number] [address] [place] [address], [place] [address] Dec, [facility] [address] [id number] [address] [place] [address], [place] [address] Dec, [facility] [address] [id number] [address] [place] [address], [place] [address] Dec, [facility] [address] [id number] [address] [place] [address], [place] [address] Dec, [facility] [address] [id number] [address] [place] [address], [place] [address] Dec, [facility] [address] [id number] [address] [place] [address], [place] [address] Nov, [facility] [address] [id number] [address] [place] [address], [place] [address] Nov, [facility] [address] [id number] [address] [place] [address], [place] [address] Nov, [facility] [address] [id number] [address] [place] [address], [place] [address] Nov, [facility] [address] [id number] [address] [place] [address], [place] [address] October, [facility] [address] [id number] [address] [place] [address], [place] [address] October, [facility] [address] [id number] [address] [place] [address], [place] [address] October, [facility] [address] [id number] [address] [place] [address], [place] [address] October, [facility] [address] [id number] [address] [place] [address], [place] [address] October, [facility] [address] [id number] [address] [place] [address], [place] [address] October, [facility] [address] [id number] [address] [place] [address], [place] [address] Sep, [facility] [address] [id number] [address] [place] [address], [place] [address] Sep, [facility] [address] [id number] [address] [place] [address], [place] [address] Sep, [facility] [address] [id number] [address] [place] [address], [place] [address] 23 Sep, 2012 [facility] [address] [id number] [facility] [place] [address] Sep, [facility] [address] [id number] [address] [place] [address], [place] [address] 16 Sep, 2012 [facility] [address] [id number] [address] [place] [address], [place] [address] Sep, [facility] [address] [id number] [address] [place] [address], [place] [address] Sep, [facility] [address] [id number] [address] [place] [address], [place] [address] Sep, [facility] [address] [id number] [address] [place] [address], [place] [address] Sep, [facility] [address] [id number] [address] [place] [address], [place] [address] Sep, [facility] [address] [id number] [address] [place] [address], [place] [address] 26 Aug, 2012 [facility] [address] [id number] [address] [place] [address], [place] [address] 25 Aug, 2012 [facility] [address] [id number] [address] [place] [address], [place] [address] 25 Aug, 2012 [facility] [address] [id number] [address] [place] [address], [place] [address] Aug, [facility] [address] [id number] [address] [place] [address], [place] [address] 19 Aug, 2012 [facility] [address] [id number] [address] [place] [address], [place] [address] 18 Aug, 2012 [facility] [address] [id number] [address] [place] [address], [place] [address] 17 Aug, 2012 [facility] [address] [id number] [address] [place] [address], [place] [address] 15 Aug, 2012 [facility] [address] [id number] [address] [place] [address], [place] [address] 15 Aug, 2012 [facility] [address] [id number] [address] [place] [address], [place] [address] 11 Aug, 2012 [facility] [address] [id number] [address] [place] [address], [place] [address] 11 Aug, 2012 [facility] [address] [id number] [address] [place] [address], [place] [address] 07 Aug, 2012 [facility] [address] [id number] [address] [place] [address], [place] [address] 27 Jul, 2012 [facility] [address] [id number] [address] [place] [address], [place] [address] Jul, [facility] [address] [id number] [address] [place] [address], [place] [address] Jul, [facility] [address] [id number] [address] [place] [address], [place] [address] Jul, [facility] [address] [id number] [address] [place] [address], [place] [address] Jul, [facility] [address] [id number] [address] [place] [address], [place] [address] Jul, [facility] [address] [id number] [address] [place] [address], [place] [address] 18 Jul, 2012 [facility] [address] [id number] [address] [place] [address], [place] [address] 18 Jul, 2012 [facility] [address] [id number] [address] [place] [address], [place] [address] 12 Jul, 2012 [facility] [address] [id number] [address] [place] [address], [place] [address] Jul, [facility] [address] [id number] [address] [place] [address], [place] [address] May, [facility] [address] [id number] [id number] May, [facility] [address] [id number] [address] [place] [address], [place] [address] May, [facility] [address] [id number] [address] [place] [address], [place] [address] May, [facility] [address] [facility] [id number] [address] [place] [address], [place] [address] May, [facility] [address] [id number] [address] [place] [address], [place] [address] Apr, [facility] [address] [id number] [place] [id number] Apr, [facility] [address] [id number] [address] [place] [address], [place] [address] Apr, [facility] [address] [facility] [id number] [address] [place] [address], [place] [address] Mar, [facility] [address] [id number] [place] [id number] Mar, [facility] [address] [id number] [address] [place] [address], [place] [address] Mar, [facility] [address] [id number] [place] [id number] Feb, [facility] [address] [id number] [address] [place] [address], [place] [address] Feb, [facility] [address] [id number] [address] [place] [address], [place] [address] Feb, [facility] [address] [id number] [place] [id number] Feb, [facility] [address] [id number] [place] [id number] Feb, [facility] [address] [id number] [place] [id number] Jan, [facility] [address] [id number] [address] [place] [address], [place] [address] Jan, [facility] [address] [id number] [place] [id number] Jan, [facility] [address] [id number] [place] [id number] Jan, [facility] [address] [id number] [place] [id number] Jan, [facility] [address] [facility] [id number] [address] [place] [address], [place] [address] Jan, [facility] [address] [id number] [address] [place] [address] Jan, [facility] [address] [facility] [id number] [address] [place] [address] Aug, [facility] [address] [id number] [place] [id number] Aug, [facility] [address] [facility] [id number] [address] [place] [address] Jul, [facility] [address] [facility] [id number] [address] [place] [address] Jul, [facility] [address] [facility] [id number] [address] [place] [address] Jul, [facility] [address] [id number] [place] [id number] Jul, [facility] [address] [facility] [id number] [address] [place] [address] Jul, [facility] [address] [id number] [place] [id number] Jul, [facility] [address] [id number] [address] [place] [address], [place] [address] Jul, [facility] [address] [id number] [place] [id number] Jul, [facility] [address] [id number] [place] [id number] Jul, [facility] [address] [id number] [id number] Jul, 2011 [facility] [address] [id number] [address] [place] [address] May, [facility] [address] [id number] [address] [place] [address] May, [facility] [address] [id number] [address] [place] [id number] May, [facility] [address] [id number] [address] [place] [address] Apr, [facility] [address] [id number] [address] [place] [id number] Jan, [facility] [address] [id number] [address] [place] [id number] Jan, [facility] [address] [id number] [address] [place] [phone] Dec, [facility] [address] [id number] [address] [place] [id number] Dec, [facility] [address] [id number] [address] [place] [phone] May, [facility] [address] [id number] [address] [place] [id number] Mar, [facility] [address] [id number] [address] [place] [phone] Mar, [facility] [address] [id number] [address] [place] [id number] 14 Jan, 2009 IMMUNIZATIONS No Known Immunizations [...]
--- OUTSIDE RECORDS SUMMARY | 2020-01-28 13:13 | XMS REPORT ---
Author Author Heydi Candelario Doctor Organization [facility] Address Unknown Phone Unavailable Care Team Providers Care Etcher Enameling Name Role Phone Migration, Doctor Unavailable Unavailable PROBLEMS Type Condition ICD9-CM Code [id number] Code Onset Dates Condition S tatus SNOMED Code Problem Chronic pain syndrome G89.4 Active 929165400 Problem Sore throat J02.9 Active 22601268 3 Problem Choriocarcinoma C58 Active 1881 93286 Problem alf current use of anticoagulant Z79.01 Active 155549126 Problem History of venous thromboembolism V12.51 Active 334413553 Problem Cellulitis of unspecified part of limb L03.119 Active 742773064 Problem Gastroesophageal reflux disease without esophagitis K21.9 Active 905436559 Problem History of pulmonary embolism Z86.711 Active 827958676 Problem Pseudotumor cerebri G93.2 Active 95467649 Problem History of DVT (deep vein thrombosis) Z86.718 Active 802424171 ALLERGIES No Information ENCOUNTERS Encounter Location Date Diagnosis [place] [address] [place] [id number] [address] [place] [address] 14 Nov, 2019 Encounter for screening labo ratory testing for COVID-19 virus Z11.59 [place] [address] [place] [id number] [address] [place] [address]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, 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 [place] [address] [facility] [id number] [address] [place] [address] Apr, alf current use of ant icoagulant Z79.01 [place] [address] [facility] [id number] [address] [place] [address] Apr, Cellulitis of unspecified pa rt of limb L03.119 ; Allergic contact dermatitis due to adhesives L23.1 and Chronic pain syndrome G89.4 [place] [address] [address] Apr, [facility] [address] [address] Apr, alf current use of ant icoagulant Z79.01 ; Cellulitis of unspecified part of limb L03.119 ; Chronic pain syndrome G89.4 and Anxiety F41.9 [place] [address] [address] Apr, [facility] [address] [address] Apr, [place] [address] [address] Mar, [place] [address] [address] Mar, [place] [address] [address] Mar, Sore throat J02.9 ; Gastroes ophageal reflux disease without esophagitis K21.9 ; Pseudotumor cerebri G93.2 ; Chronic pain syndrome G89.4 ; Choriocarcinoma C58 ; History of pulmonary embolism Z86.711 ; History of DVT (deep vein thrombosis) Z86.718 ; Anxiety F41.9 and Tachycardia R00.0 [place] [address] [place] [id number] [address] [place] [address] Feb, Anxiety 300.00 and Chronic p ain 338.29 [facility] [address] [place] [id number] [address] [place] [address] Feb, [facility] [address] [address] Feb, [facility] [address] [place] [id number] [address] [place] [address] 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, 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 and Dysuria 788.1 [place] [address] [place] [id number] [address] [place] [address] Jan, Dysuria 788.1 [place] [address] [address] Jan, Anxiety 300.00 and Chronic p ain 338.29 [place] [address] [address] Jan, [place] [address] [address] Jan, [place] [address] [address] Jan, [place] [address] [address] Dec, Weakness 780.79 [place] [address] [address] Dec, 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 [address] Dec, Palpitations 785.1 ; Tremor 781.0 ; Weakness 780.79 ; alf current use of anticoagulant therapy V58.61 and Yeast vaginitis 112.1 [place] [address] [place] [id number] [place] [address] Dec, [place] [address] [address] Dec, Cervicalgia 723.1 ; Tachycar yoseph 785.0 ; Pseudotumor cerebri 348.2 and History of venous thromboembolism V12.51 [place] [address] [address] Nov, [place] [address] [place] [id number] [place] [address] Nov, [place] [address] [place] [address] [place] [address] 24 Nov, 2014 Tachycardia 785.0 ; Pseudotu mor cerebri 348.2 ; Anxiety 300.00 and History of venous thromboembolism V12.51 [facility] [address] [id number] [address] [place] [address] 19 Nov, 2014 [facility] [address] [id number] [address] [place] [address] 18 Nov, 2014 [facility] [address] [id number] [address] [place] [address] 16 Nov, 2014 [facility] [address] [id number] [address] [place] [address] Nov, [facility] [address] [facility] [id number] [address] [place] [address] Nov, [facility] [address] [facility] [id number] [address] [place] [address] Nov, [facility] [address] [id number] [address] [place] [address] Nov, [facility] [address] [facility] [id number] [address] [place] [address] October, [facility] [address] [facility] [id number] [address] [place] [address] October, [facility] [address] [facility] [id number] [address] [place] [address] October, Pain in thoracic spine 724.1 and Tachycardia 785.0 [facility] [address] [id number] [address] [place] [address] October, [facility] [address] [facility] [id number] [address] [place] [address] October, [facility] [address] [facility] [id number] [address] [place] [address] 14 Sep, 2014 [facility] [address] [facility] [id number] [address] [place] [address] Sep, [facility] [address] [id number] [address] [place] [address], [place] [address] Aug, [facility] [address] [id number] [address] [place] [address], [place] [address] Aug, [facility] [address] [id number] [address] [place] [address], [place] [address] Aug, [facility] [address] [id number] [address] [place] [address], [place] [address] Aug, [facility] [address] [id number] [address] [place] [address], [place] [address] Aug, [facility] [address] [id number] [address] [place] [address], [place] [address] Aug, [facility] [address] [id number] [address] [place] [address], [place] [address] Aug, [facility] [address] [id number] [address] [place] [address], [place] [address] Aug, [facility] [address] [id number] [address] [place] [address], [place] [address] Aug, [facility] [address] [id number] [address] [place] [address], [place] [address] Aug, [facility] [address] [id number] [address] [place] [address], [place] [address] Aug, [facility] [address] [id number] [address] [place] [address], [place] [address] Aug, [facility] [address] [id number] [address] [place] [address], [place] [address] Jul, [facility] [address] [id number] [address] [place] [address], [place] [address] Jul, [facility] [address] [id number] [address] [place] [address], [place] [address] Jul, [facility] [address] [id number] [address] [place] [address], [place] [address] 23 Jul, 2014 [facility] [address] [id number] [address] [place] [address], [place] [address] 23 Jul, 2014 [facility] [address] [id number] [address] [place] [address], [place] [address] 23 Jul, 2014 [facility] [address] [id number] [address] [place] [address], [place] [address] 23 Jul, 2014 [facility] [address] [id number] [address] [place] [address], [place] [address] 23 Jul, 2014 [facility] [address] [id number] [address] [place] [address], [place] [address] 20 Jul, 2014 [facility] [address] [id number] [address] [place] [address], [place] [address] 20 Jul, 2014 [facility] [address] [id number] [address] [place] [address] 19 Jul, 2014 [facility] [address] [id number] [address] [place] [address], [place] [address] 19 Jul, 2014 [facility] [address] [id number] [address] [place] [address] 17 Jul, 2014 [facility] [address] [id number] [address] [place] [address] 17 Jul, 2014 [facility] [address] [id number] [address] [place] [address] 16 Jul, 2014 [facility] [address] [id number] [address] [place] [address], [place] [address] 16 Jul, 2014 [facility] [address] [id number] [address] [place] [address] 16 Jul, 2014 [facility] [address] [id number] [address] [place] [address] 16 Jul, 2014 [facility] [address] [id number] [address] [place] [address], [place] [address] 13 Jul, 2014 [facility] [address] [id number] [address] [place] [address], [place] [address] Jul, 2014 [facility] [address] [id number] [address] [place] [address], [place] [address] Jul, 2014 [facility] [address] [id number] [address] [place] [address], [place] [address] Jul, 2014 [facility] [address] [id number] [address] [place] [address], [place] [address] Jul, 2014 [facility] [address] [id number] [address] [place] [address], [place] [address] Jul, [facility] [address] [id number] [address] [place] [address], [place] [address] Jul, 2014 [facility] [address] [id number] [address] [place] [address], [place] [address] Jul, [facility] [address] [id number] [address] [place] [address], [place] [address] Jul, [facility] [address] [id number] [address] [place] [address], [place] [address] Jul, [facility] [address] [id number] [address] [place] [address] Jul, [facility] [address] [id number] [address] [place] [address] Jul, [facility] [address] [id number] [address] [place] [address], [place] [address] Jun, [facility] [address] [id number] [address] [place] [address] Jun, [facility] [address] [id number] [address] [place] [address] Jun, [facility] [address] [id number] [address] [place] [address] Jun, [facility] [address] [id number] [address] [place] [address], [place] [address] Jun, [facility] [address] [id number] [address] [place] [address], [place] [address] Jun, [facility] [address] [id number] [address] [place] [address], [place] [address] Jun, [facility] [address] [id number] [address] [place] [address], [place] [address] Jun, [facility] [address] [id number] [address] [place] [address], [place] [address] Jun, [facility] [address] [id number] [address] [place] [address], [place] [address] Jun, [facility] [address] [id number] [address] [place] [address], [place] [address] Jun, [facility] [address] [id number] [address] [place] [address], [place] [address] Jun, [facility] [address] [id number] [address] [place] [address], [place] [address] Jun, [facility] [address] [id number] [address] [place] [address], [place] [address] Jun, [facility] [address] [id number] [address] [place] [address], [place] [address] Jun, [facility] [address] [id number] [address] [place] [address], [place] [address] Jun, [facility] [address] [id number] [address] [place] [address], [place] [address] Jun, [facility] [address] [id number] [address] [place] [address], [place] [address] Jun, [facility] [address] [id number] [address] [place] [address], [place] [address] Jun, [facility] [address] [id number] [address] [place] [address], [place] [address] Jun, [facility] [address] [id number] [address] [place] [address], [place] [address] May, [facility] [address] [id number] [address] [place] [address], [place] [address] May, [facility] [address] [id number] [address] [place] [address], [place] [address] May, [facility] [address] [id number] [address] [place] [address], [place] [address] May, [facility] [address] [id number] [address] [place] [address], [place] [address] May, [facility] [address] [id number] [address] [place] [address], [place] [address] May, [facility] [address] [id number] [address] [place] [address], [place] [address] May, [facility] [address] [id number] [address] [place] [address], [place] [address] May, [facility] [address] [id number] [address] [place] [address], [place] [address] May, [facility] [address] [id number] [address] [place] [address], [place] [address] May, [facility] [address] [id number] [address] [place] [address], [place] [address] May, [facility] [address] [id number] [address] [place] [address], [place] [address] 18 May, 2014 [facility] [address] [id number] [address] [place] [address], [place] [address] 18 May, 2014 [facility] [address] [id number] [address] [place] [address], [place] [address] 17 May, 2014 [facility] [address] [id number] [address] [place] [address], [place] [address] 16 May, 2014 [facility] [address] [id number] [facility] [place] [address] 16 May, 2014 [facility] [address] [id number] [facility] [place] [address] 15 May, 2014 [facility] [address] [id number] [address] [place] [address], [place] [address] 15 May, 2014 [facility] [address] [id number] [address] [place] [address], [place] [address] May, [facility] [address] [id number] [address] [place] [address], [place] [address] May, [facility] [address] [id number] [address] [place] [address], [place] [address] May, [facility] [address] [id number] [address] [place] [address], [place] [address] May, [facility] [address] [id number] [address] [place] [address], [place] [address] May, [facility] [address] [id number] [address] [place] [address], [place] [address] May, [facility] [address] [id number] [address] [place] [address], [place] [address] May, [facility] [address] [id number] [address] [place] [address], [place] [address] May, [facility] [address] [id number] [address] [place] [address], [place] [address] May, [facility] [address] [id number] [address] [place] [address], [place] [address] May, [facility] [address] [id number] [address] [place] [address], [place] [address] May, [facility] [address] [id number] [address] [place] [address], [place] [address] May, [facility] [address] [id number] [address] [place] [address], [place] [address] 05 May, 2014 [facility] [address] [id number] [address] [place] [address], [place] [address] May, [facility] [address] [id number] [address] [place] [address], [place] [address] May, [facility] [address] [id number] [address] [place] [address], [place] [address] May, [facility] [address] [id number] [address] [place] [address], [place] [address] Apr, [facility] [address] [id number] [address] [place] [address], [place] [address] Apr, [facility] [address] [id number] [address] [place] [address], [place] [address] Apr, [facility] [address] [id number] [address] [place] [address], [place] [address] Apr, [facility] [address] [id number] [address] [place] [address], [place] [address] Apr, [facility] [address] [id number] [address] [place] [address], [place] [address] Apr, [facility] [address] [id number] [address] [place] [address], [place] [address] Apr, [facility] [address] [id number] [address] [place] [address], [place] [address] Apr, [facility] [address] [id number] [address] [place] [address], [place] [address] Apr, [facility] [address] [id number] [address] [place] [address], [place] [address] Apr, [facility] [address] [id number] [address] [place] [address], [place] [address] Mar, [facility] [address] [id number] [address] [place] [address], [place] [address] Mar, [facility] [address] [id number] [address] [place] [address], [place] [address] 31 Mar, 2013 [facility] [address] [id number] [address] [place] [address], [place] [address] Mar, 2013 [facility] [address] [id number] [address] [place] [address], [place] [address] 30 Mar, 2014 [facility] [address] [id number] [address] [place] [address], [place] [address] 30 Mar, 2014 [facility] [address] [id number] [address] [place] [address], [place] [address] Mar, [facility] [address] [id number] [address] [place] [address], [place] [address] Mar, [facility] [address] [id number] [address] [place] [address], [place] [address] Mar, [facility] [address] [id number] [address] [place] [address], [place] [address] Mar, [facility] [address] [id number] [address] [place] [address], [place] [address] Mar, [facility] [address] [id number] [address] [place] [address], [place] [address] Mar, [facility] [address] [id number] [address] [place] [address], [place] [address] Mar, [facility] [address] [id number] [address] [place] [address], [place] [address] Mar, [facility] [address] [id number] [address] [place] [address], [place] [address] Mar, [facility] [address] [id number] [address] [place] [address], [place] [address] Mar, [facility] [address] [id number] [address] [place] [address], [place] [address] Mar, [facility] [address] [id number] [address] [place] [address] Mar, [facility] [address] [id number] [address] [place] [address], [place] [address] Mar, [facility] [address] [id number] [address] [place] [address], [place] [address] Mar, [facility] [address] [id number] [address] [place] [address], [place] [address] 05 Sep, 2013 [facility] [address] [id number] [address] [place] [address], [place] [address] 05 Sep, 2013 [facility] [address] [id number] [address] [place] [address], [place] [address] 04 Feb, 2013 [facility] [address] [id number] [address] [place] [address], [place] [address] 04 Feb, 2013 [facility] [address] [id number] [address] [place] [address], [place] [address] Feb, 2013 [facility] [address] [id number] [address] [place] [address], [place] [address] Feb, 2013 [facility] [address] [id number] [address] [place] [address], [place] [address] Feb, 2013 [facility] [address] [id number] [address] [place] [address], [place] [address] Feb, 2013 [facility] [address] [id number] [address] [place] [address], [place] [address] Feb, 2013 [facility] [address] [id number] [address] [place] [address], [place] [address] Feb, 2013 [facility] [address] [id number] [address] [place] [address], [place] [address] Jan, [facility] [address] [id number] [address] [place] [address], [place] [address] Jan, [facility] [address] [id number] [address] [place] [address], [place] [address] Jan, [facility] [address] [id number] [facility] [place] [address] Jan, [facility] [address] [id number] [address] [place] [address] Jan, [facility] [address] [id number] [address] [place] [address] Jan, [facility] [address] [id number] [address] [place] [address], [place] [address] Jan, [facility] [address] [id number] [address] [place] [address], [place] [address] Jan, [facility] [address] [id number] [address] [place] [address], [place] [address] Jan, [facility] [address] [id number] [address] [place] [address], [place] [address] Jan, [facility] [address] [id number] [address] [place] [address], [place] [address] Jan, [facility] [address] [id number] [address] [place] [address], [place] [address] Jan, [facility] [address] [id number] [address] [place] [address], [place] [address] Dec, [facility] [address] [id number] [address] [place] [address], [place] [address] Dec, [facility] [address] [id number] [address] [place] [address], [place] [address] Dec, [facility] [address] [id number] [address] [place] [address], [place] [address] Dec, [facility] [address] [id number] [address] [place] [address], [place] [address] Dec, [facility] [address] [id number] [address] [place] [address], [place] [address] Dec, [facility] [address] [id number] [address] [place] [address], [place] [address] Dec, [facility] [address] [id number] [address] [place] [address], [place] [address] Dec, 2013 [facility] [address] [id number] [address] [place] [address], [place] [address] Dec, [facility] [address] [id number] [address] [place] [address], [place] [address] Dec, [facility] [address] [id number] [address] [place] [address], [place] [address] Dec, [facility] [address] [id number] [address] [place] [address], [place] [address] Dec, [facility] [address] [id number] [address] [place] [address], [place] [address] Nov, [facility] [address] [id number] [address] [place] [address], [place] [address] Nov, [facility] [address] [id number] [address] [place] [address], [place] [address] Nov, [facility] [address] [id number] [address] [place] [address], [place] [address] Nov, [facility] [address] [id number] [address] [place] [address], [place] [address] Nov, [facility] [address] [id number] [address] [place] [address], [place] [address] Nov, [facility] [address] [id number] [address] [place] [address], [place] [address] Nov, [facility] [address] [id number] [address] [place] [address], [place] [address] Nov, [facility] [address] [id number] [address] [place] [address], [place] [address] Nov, [facility] [address] [id number] [address] [place] [address], [place] [address] Nov, [facility] [address] [id number] [address] [place] [address], [place] [address] Nov, [facility] [address] [id number] [address] [place] [address], [place] [address] Nov, [facility] [address] [id number] [address] [place] [address], [place] [address] Nov, [facility] [address] [id number] [address] [place] [address], [place] [address] Nov, [facility] [address] [id number] [address] [place] [address], [place] [address] October, [facility] [address] [id number] [address] [place] [address], [place] [address] October, [facility] [address] [id number] [address] [place] [address], [place] [address] October, [facility] [address] [id number] [address] [place] [address], [place] [address] October, [facility] [address] [id number] [address] [place] [address], [place] [address] October, [facility] [address] [id number] [address] [place] [address], [place] [address] October, [facility] [address] [id number] [address] [place] [address], [place] [address] October, [facility] [address] [id number] [address] [place] [address], [place] [address] October, [facility] [address] [id number] [address] [place] [address], [place] [address] October, [facility] [address] [id number] [address] [place] [address], [place] [address] October, [facility] [address] [id number] [address] [place] [address], [place] [address] October, [facility] [address] [id number] [address] [place] [address], [place] [address] October, [facility] [address] [id number] [facility] [place] [address] Sep, [facility] [address] [id number] [facility] [place] [address] Sep, [facility] [address] [id number] [facility] [place] [address] Sep, [facility] [address] [id number] [address] [place] [address], [place] [address] Sep, [facility] [address] [id number] [address] [place] [address], [place] [address] Sep, [facility] [address] [id number] [address] [place] [address], [place] [address] Sep, [facility] [address] [id number] [address] [place] [address], [place] [address] Aug, [facility] [address] [id number] [address] [place] [address], [place] [address] Aug, [facility] [address] [id number] [address] [place] [address], [place] [address] Aug, [facility] [address] [id number] [address] [place] [address], [place] [address] Aug, [facility] [address] [id number] [address] [place] [address], [place] [address] Aug, [facility] [address] [id number] [address] [place] [address], [place] [address] Aug, [facility] [address] [id number] [address] [place] [address], [place] [address] Jul, [facility] [address] [id number] [address] [place] [address], [place] [address] Jul, [facility] [address] [id number] [address] [place] [address], [place] [address] Jul, [facility] [address] [id number] [address] [place] [address], [place] [address] Jul, [facility] [address] [id number] [address] [place] [address], [place] [address] Jul, [facility] [address] [id number] [address] [place] [address], [place] [address] Jul, [facility] [address] [id number] [address] [place] [address], [place] [address] Jul, [facility] [address] [id number] [address] [place] [address], [place] [address] Jul, [facility] [address] [id number] [address] [place] [address], [place] [address] Jul, [facility] [address] [id number] [address] [place] [address], [place] [address] Jul, [facility] [address] [id number] [address] [place] [address], [place] [address] Jun, [facility] [address] [id number] [address] [place] [address], [place] [address] Jun, [facility] [address] [id number] [address] [place] [address], [place] [address] Jun, [facility] [address] [id number] [address] [place] [address], [place] [address] Jun, [facility] [address] [id number] [address] [place] [address], [place] [address] Jun, [facility] [address] [id number] [address] [place] [address], [place] [address] Jun, [facility] [address] [id number] [address] [place] [address], [place] [address] Jun, [facility] [address] [id number] [address] [place] [address], [place] [address] Jun, [facility] [address] [id number] [address] [place] [address], [place] [address] May, [facility] [address] [id number] [address] [place] [address], [place] [address] May, [facility] [address] [id number] [address] [place] [address], [place] [address] May, [facility] [address] [id number] [address] [place] [address], [place] [address] May, [facility] [address] [id number] [address] [place] [address], [place] [address] May, [facility] [address] [id number] [address] [place] [address], [place] [address] May, [facility] [address] [id number] [address] [place] [address], [place] [address] May, [facility] [address] [id number] [address] [place] [address], [place] [address] May, [facility] [address] [id number] [address] [place] [address], [place] [address] Apr, [facility] [address] [id number] [address] [place] [address], [place] [address] Apr, [facility] [address] [id number] [address] [place] [address], [place] [address] Apr, [facility] [address] [id number] [address] [place] [address], [place] [address] Apr, [facility] [address] [id number] [address] [place] [address], [place] [address] Apr, [facility] [address] [id number] [address] [place] [address], [place] [address] Apr, [facility] [address] [id number] [address] [place] [address], [place] [address] Mar, [facility] [address] [id number] [address] [place] [address], [place] [address] Mar, [facility] [address] [id number] [address] [place] [address], [place] [address] Mar, [facility] [address] [id number] [address] [place] [address], [place] [address] Mar, [facility] [address] [id number] [address] [place] [address], [place] [address] Mar, [facility] [address] [id number] [address] [place] [address], [place] [address] Mar, [facility] [address] [id number] [address] [place] [address], [place] [address] Mar, [facility] [address] [id number] [address] [place] [address], [place] [address] 30 Feb, 2013 [facility] [address] [id number] [address] [place] [address], [place] [address] 30 Feb, 2013 [facility] [address] [id number] [address] [place] [address], [place] [address] Feb, [facility] [address] [id number] [address] [place] [address], [place] [address] Feb, [facility] [address] [id number] [address] [place] [address], [place] [address] Feb, [facility] [address] [id number] [address] [place] [address], [place] [address] Feb, [facility] [address] [id number] [address] [place] [address], [place] [address] Jan, [facility] [address] [id number] [address] [place] [address], [place] [address] Jan, [facility] [address] [id number] [address] [place] [address], [place] [address] Jan, [facility] [address] [id number] [address] [place] [address], [place] [address] Jan, [facility] [address] [id number] [address] [place] [address], [place] [address] Jan, [facility] [address] [id number] [address] [place] [address], [place] [address] Jan, [facility] [address] [id number] [address] [place] [address], [place] [address] Jan, [facility] [address] [id number] [address] [place] [address], [place] [address] Jan, [facility] [address] [id number] [address] [place] [address], [place] [address] Jan, [facility] [address] [id number] [address] [place] [address], [place] [address] Dec, [facility] [address] [id number] [address] [place] [address], [place] [address] Dec, [facility] [address] [id number] [address] [place] [address], [place] [address] Dec, [facility] [address] [id number] [address] [place] [address], [place] [address] Dec, [facility] [address] [id number] [address] [place] [address], [place] [address] Dec, [facility] [address] [id number] [address] [place] [address], [place] [address] Dec, [facility] [address] [id number] [address] [place] [address], [place] [address] Dec, [facility] [address] [id number] [address] [place] [address], [place] [address] Dec, [facility] [address] [id number] [address] [place] [address], [place] [address] Dec, [facility] [address] [id number] [address] [place] [address], [place] [address] Dec, [facility] [address] [id number] [address] [place] [address], [place] [address] Dec, [facility] [address] [id number] [address] [place] [address], [place] [address] Dec, [facility] [address] [id number] [address] [place] [address], [place] [address] Dec, [facility] [address] [id number] [address] [place] [address], [place] [address] Nov, [facility] [address] [id number] [address] [place] [address], [place] [address] Nov, [facility] [address] [id number] [address] [place] [address], [place] [address] Nov, [facility] [address] [id number] [address] [place] [address], [place] [address] Nov, [facility] [address] [id number] [address] [place] [address], [place] [address] October, [facility] [address] [id number] [address] [place] [address], [place] [address] October, [facility] [address] [id number] [address] [place] [address], [place] [address] October, [facility] [address] [id number] [address] [place] [address], [place] [address] October, [facility] [address] [id number] [address] [place] [address], [place] [address] October, [facility] [address] [id number] [address] [place] [address], [place] [address] October, [facility] [address] [id number] [address] [place] [address], [place] [address] Sep, [facility] [address] [id number] [address] [place] [address], [place] [address] Sep, [facility] [address] [id number] [address] [place] [address], [place] [address] Sep, [facility] [address] [id number] [address] [place] [address], [place] [address] Sep, [facility] [address] [id number] [address] [place] [address], [place] [address] 19 Sep, 2012 [facility] [address] [id number] [address] [place] [address], [place] [address] 16 Sep, 2012 [facility] [address] [id number] [address] [place] [address], [place] [address] Sep, [facility] [address] [id number] [address] [place] [address], [place] [address] Sep, [facility] [address] [id number] [address] [place] [address], [place] [address] Sep, [facility] [address] [id number] [address] [place] [address], [place] [address] Sep, [facility] [address] [id number] [address] [place] [address], [place] [address] Sep, [facility] [address] [id number] [address] [place] [address], [place] [address] Aug, [facility] [address] [id number] [address] [place] [address], [place] [address] Aug, [facility] [address] [id number] [address] [place] [address], [place] [address] 25 Aug, 2012 [facility] [address] [id number] [address] [place] [address], [place] [address] Aug, [facility] [address] [id number] [address] [place] [address], [place] [address] 19 Aug, 2012 [facility] [address] [id number] [address] [place] [address], [place] [address] 18 Aug, 2012 [facility] [address] [id number] [address] [place] [address], [place] [address] 17 Aug, 2012 [facility] [address] [id number] [address] [place] [address], [place] [address] 15 Aug, 2012 [facility] [address] [id number] [address] [place] [address], [place] [address] 15 Aug, 2012 [facility] [address] [id number] [address] [place] [address], [place] [address] Aug, [facility] [address] [id number] [address] [place] [address], [place] [address] Aug, [facility] [address] [id number] [address] [place] [address], [place] [address] Aug, [facility] [address] [id number] [address] [place] [address], [place] [address] Jul, [facility] [address] [id number] [address] [place] [address], [place] [address] Jul, [facility] [address] [id number] [address] [place] [address], [place] [address] Jul, [facility] [address] [id number] [address] [place] [address], [place] [address] Jul, [facility] [address] [id number] [address] [place] [address], [place] [address] Jul, [facility] [address] [id number] [address] [place] [address], [place] [address] Jul, [facility] [address] [id number] [address] [place] [address], [place] [address] Jul, [facility] [address] [id number] [address] [place] [address], [place] [address] Jul, [facility] [address] [id number] [address] [place] [address], [place] [address] Jul, [facility] [address] [id number] [address] [place] [address], [place] [address] Jul, [facility] [address] [id number] [address] [place] [address], [place] [address] May, [facility] [address] [id number] [place] [id number] May, [facility] [address] [id number] [place] [address] May, [facility] [address] [id number] [address] [place] [address] May, [facility] [address] [id number] [address] [place] [address] May, [facility] [address] [id number] [address] [place] [address] Apr, [facility] [address] [id number] [place] [id number] Apr, [facility] [address] [id number] [address] [place] [address] Apr, [facility] [address] [id number] [address] [place] [address] Mar, [facility] [address] [id number] [place] [id number] Mar, [facility] [address] [id number] [address] [place] [address] Mar, [facility] [address] [id number] [place] [id number] Feb, [facility] [address] [id number] [address] [place] [address] Feb, [facility] [address] [id number] [address] [place] [address] Feb, [facility] [address] [id number] [place] [id number] Feb, [facility] [address] [id number] [place] [id number] Feb, [facility] [address] [id number] [place] [id number] Jan, [facility] [address] [id number] [address] [place] [address] Jan, [facility] [address] [id number] [place] [id number] Jan, [facility] [address] [id number] [place] [id number] Jan, [facility] [address] [id number] [place] [id number] Jan, [facility] [address] [facility] [id number] [place] [address] Jan, [facility] [address] [facility] [id number] [address] [place] [address] Jan, [facility] [address] [facility] [id number] [address] [place] [id number] Aug, [facility] [address] [id number] [place] [id number] Aug, [facility] [address] [facility] [id number] [address] [place] [address] Jul, [facility] [address] [facility] [id number] [address] [place] [address] Jul, [facility] [address] [facility] [id number] [address] [place] [id number] Jul, [facility] [address] [id number] [place] [id number] Jul, 2011 [facility] [address] [facility] [id number] [address] [place] [phone] Jul, [facility] [address] [id number] [place] [id number] Jul, [facility] [address] [facility] [id number] [address] [place] [id number] Jul, [facility] [address] [id number] [place] [id number] Jul, [facility] [address] [id number] [place] [id number] Jul, [facility] [address] [id number] [place] [id number] Jul, [facility] [address] [facility] [id number] [address] [place] [id number] May, [facility] [address] [id number] [address] [place] [id number] May, [facility] [address] [id number] [address] [place] [id number] May, [facility] [address] [id number] [address] [place] [id number] Apr, [facility] [address] [id number] [address] [place] [phone] Jan, [facility] [address] [id number] [address] [place] [id number] Jan, [facility] [address] [id number] [address] [place] [phone] Dec, [facility] [address] [id number] [address] [place] [phone] Dec, [facility] [address] [id number] [address] [place] [phone] May, [facility] [address] [id number] [address] [place] [id number] Mar, [facility] [address] [id number] [address] [place] [id number] Mar, [facility] [address] [id number] [address] [place] [id number] 14 Jan, 2009 IMMUNIZATIONS No Known Immunizations [...]
--- OUTSIDE RECORDS SUMMARY | 2020-01-28 13:14 | XMS REPORT ---
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 Name Role Phone Migration, Doctor Unavailable Unavailable PROBLEMS Type Condition ICD9-CM Code POP35-EC Code Onset Dates Condition S tatus SNOMED Code Problem Chronic pain syndrome G89.4 Active 400111155 Problem Sore throat J02.9 Active 89081543 3 Problem Choriocarcinoma C58 Active 1881 05649 Problem custodial current use of anticoagulant Z79.01 Active 162022463 Problem History of venous thromboembolism V12.51 Active 914618056 Problem Cellulitis of unspecified part of limb L03.119 Active 007897605 Problem Gastroesophageal reflux disease without esophagitis K21.9 Active 637628215 Problem History of pulmonary embolism Z86.711 Active 759014577 Problem Pseudotumor cerebri G93.2 Active 30013537 Problem History of DVT (deep vein thrombosis) Z86.718 Active 470568299 ALLERGIES No Information ENCOUNTERS Encounter Location Date Diagnosis [place] [address] [place] [id number] [address] [place] [address] 14 Nov, 2019 Encounter for screening labo ratory testing for COVID-19 virus Z11.59 [place] [address] [place] [id number] [address] [place] [address] Apr, 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 [place] [address] [facility] [id number] [address] [place] [address] Apr, custodial current use of ant icoagulant Z79.01 [place] [address] [facility] [id number] [address] [place] [address] Apr, Cellulitis of unspecified pa rt of limb L03.119 ; Allergic contact dermatitis due to adhesives L23.1 and Chronic pain syndrome G89.4 [place] [address] [address] Apr, [facility] [address] [address] Apr, custodial current use of ant icoagulant Z79.01 ; Cellulitis of unspecified part of limb L03.119 ; Chronic pain syndrome G89.4 and Anxiety F41.9 [place] [address] [address] Apr, [facility] [address] [address] Apr, [place] [address] [address] Mar, [place] [address] [address] Mar, [place] [address] [address] Mar, Sore throat J02.9 ; Gastroes ophageal reflux disease without esophagitis K21.9 ; Pseudotumor cerebri G93.2 ; Chronic pain syndrome G89.4 ; Choriocarcinoma C58 ; History of pulmonary embolism Z86.711 ; History of DVT (deep vein thrombosis) Z86.718 ; Anxiety F41.9 and Tachycardia R00.0 [place] [address] [place] [id number] [address] [place] [address] Feb, Anxiety 300.00 and Chronic p ain 338.29 [facility] [address] [place] [id number] [address] [place] [address] Feb, [facility] [address] [address] Feb, [facility] [address] [place] [id number] [address] [place] [address] Jan, 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.61 and Dysuria 788.1 [place] [address] [place] [id number] [address] [place] [address] Jan, Dysuria 788.1 [place] [address] [address] Jan, Anxiety 300.00 and Chronic p ain 338.29 [place] [address] [address] Jan, [place] [address] [address] Jan, [place] [address] [address] Jan, [place] [address] [address] Dec, Weakness 780.79 [place] [address] [address] Dec, 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.[address] [address] Dec, Palpitations 785.1 ; Tremor 781.0 ; Weakness 780.79 ; custodial current use of anticoagulant therapy V58.61 and Yeast vaginitis 112.1 [place] [address] [place] [id number] [address] [place] [address] Dec, [place] [address] [address] Dec, Cervicalgia 723.1 ; Tachycar yoseph 785.0 ; Pseudotumor cerebri 348.2 and History of venous thromboembolism V12.51 [place] [address] [address] Nov, [place] [address] [place] [id number] [address] [place] [address] Nov, [place] [address] [place] [id number] [place] [address] 24 Nov, 2014 Tachycardia 785.0 ; Pseudotu mor cerebri 348.2 ; Anxiety 300.00 and History of venous thromboembolism V12.51 [facility] [address] [id number] [address] [place] [address] 19 Nov, 2014 [facility] [address] [id number] [address] [place] [address] 18 Nov, 2014 [facility] [address] [id number] [address] [place] [address] 16 Nov, 2014 [facility] [address] [id number] [address] [place] [address] Nov, [facility] [address] [facility] [id number] [address] [place] [address] Nov, [facility] [address] [facility] [id number] [address] [place] [address] Nov, [facility] [address] [id number] [address] [place] [address] Nov, [facility] [address] [facility] [id number] [address] [place] [address] October, [facility] [address] [facility] [id number] [address] [place] [address] October, [facility] [address] [facility] [id number] [address] [place] [address] October, Pain in thoracic spine 724.1 and Tachycardia 785.0 [facility] [address] [id number] [address] [place] [address] October, [facility] [address] [facility] [id number] [address] [place] [address] October, [facility] [address] [facility] [id number] [address] [place] [address] 14 Sep, 2014 [facility] [address] [facility] [id number] [address] [place] [address] Sep, [facility] [address] [id number] [address] [place] [address], [place] [address] Aug, [facility] [address] [id number] [address] [place] [address], [place] [address] Aug, [facility] [address] [id number] [address] [place] [address], [place] [address] Aug, [facility] [address] [id number] [address] [place] [address], [place] [address] Aug, [facility] [address] [id number] [address] [place] [address], [place] [address] Aug, [facility] [address] [id number] [address] [place] [address], [place] [address] Aug, [facility] [address] [id number] [address] [place] [address], [place] [address] Aug, [facility] [address] [id number] [address] [place] [address], [place] [address] Aug, [facility] [address] [id number] [address] [place] [address], [place] [address] Aug, [facility] [address] [id number] [address] [place] [address], [place] [address] Aug, [facility] [address] [id number] [address] [place] [address], [place] [address] Aug, [facility] [address] [id number] [address] [place] [address], [place] [address] Aug, [facility] [address] [id number] [address] [place] [address], [place] [address] Jul, [facility] [address] [id number] [address] [place] [address], [place] [address] Jul, [facility] [address] [id number] [address] [place] [address], [place] [address] Jul, [facility] [address] [id number] [address] [place] [address], [place] [address] 23 Jul, 2014 [facility] [address] [id number] [address] [place] [address], [place] [address] 23 Jul, 2014 [facility] [address] [id number] [address] [place] [address], [place] [address] 23 Jul, 2014 [facility] [address] [id number] [address] [place] [address], [place] [address] 23 Jul, 2014 [facility] [address] [id number] [address] [place] [address], [place] [address] 23 Jul, 2014 [facility] [address] [id number] [address] [place] [address], [place] [address] 20 Jul, 2014 [facility] [address] [id number] [address] [place] [address], [place] [address] 20 Jul, 2014 [facility] [address] [id number] [address] [place] [address] 19 Jul, 2014 [facility] [address] [id number] [address] [place] [address], [place] [address] 19 Jul, 2014 [facility] [address] [id number] [address] [place] [address] 17 Jul, 2014 [facility] [address] [id number] [address] [place] [address] 17 Jul, 2014 [facility] [address] [id number] [address] [place] [address] 16 Jul, 2014 [facility] [address] [id number] [address] [place] [address], [place] [address] 16 Jul, 2014 [facility] [address] [id number] [address] [place] [address] 16 Jul, 2014 [facility] [address] [id number] [address] [place] [address] 16 Jul, 2014 [facility] [address] [id number] [address] [place] [address], [place] [address] 13 Jul, 2014 [facility] [address] [id number] [address] [place] [address], [place] [address] Jul, 2014 [facility] [address] [id number] [address] [place] [address], [place] [address] Jul, 2014 [facility] [address] [id number] [address] [place] [address], [place] [address] Jul, 2014 [facility] [address] [id number] [address] [place] [address], [place] [address] Jul, 2014 [facility] [address] [id number] [address] [place] [address], [place] [address] Jul, [facility] [address] [id number] [address] [place] [address], [place] [address] Jul, 2014 [facility] [address] [id number] [address] [place] [address], [place] [address] Jul, [facility] [address] [id number] [address] [place] [address], [place] [address] Jul, [facility] [address] [id number] [address] [place] [address], [place] [address] Jul, [facility] [address] [id number] [address] [place] [address] Jul, [facility] [address] [id number] [address] [place] [address] Jul, [facility] [address] [id number] [address] [place] [address], [place] [address] Jun, [facility] [address] [id number] [address] [place] [address] Jun, [facility] [address] [id number] [address] [place] [address] Jun, [facility] [address] [id number] [address] [place] [address] Jun, [facility] [address] [id number] [address] [place] [address], [place] [address] Jun, [facility] [address] [id number] [address] [place] [address], [place] [address] Jun, [facility] [address] [id number] [address] [place] [address], [place] [address] Jun, [facility] [address] [id number] [address] [place] [address], [place] [address] Jun, [facility] [address] [id number] [address] [place] [address], [place] [address] Jun, [facility] [address] [id number] [address] [place] [address], [place] [address] Jun, [facility] [address] [id number] [address] [place] [address], [place] [address] Jun, [facility] [address] [id number] [address] [place] [address], [place] [address] Jun, [facility] [address] [id number] [address] [place] [address], [place] [address] Jun, [facility] [address] [id number] [address] [place] [address], [place] [address] Jun, [facility] [address] [id number] [address] [place] [address], [place] [address] Jun, [facility] [address] [id number] [address] [place] [address], [place] [address] Jun, [facility] [address] [id number] [address] [place] [address], [place] [address] Jun, [facility] [address] [id number] [address] [place] [address], [place] [address] Jun, [facility] [address] [id number] [address] [place] [address], [place] [address] Jun, [facility] [address] [id number] [address] [place] [address], [place] [address] Jun, [facility] [address] [id number] [address] [place] [address], [place] [address] May, [facility] [address] [id number] [address] [place] [address], [place] [address] May, [facility] [address] [id number] [address] [place] [address], [place] [address] May, [facility] [address] [id number] [address] [place] [address], [place] [address] May, [facility] [address] [id number] [address] [place] [address], [place] [address] May, [facility] [address] [id number] [address] [place] [address], [place] [address] May, [facility] [address] [id number] [address] [place] [address], [place] [address] May, [facility] [address] [id number] [address] [place] [address], [place] [address] May, [facility] [address] [id number] [address] [place] [address], [place] [address] May, [facility] [address] [id number] [address] [place] [address], [place] [address] May, [facility] [address] [id number] [address] [place] [address], [place] [address] May, [facility] [address] [id number] [address] [place] [address], [place] [address] 18 May, 2014 [facility] [address] [id number] [address] [place] [address], [place] [address] 18 May, 2014 [facility] [address] [id number] [address] [place] [address], [place] [address] 17 May, 2014 [facility] [address] [id number] [address] [place] [address], [place] [address] 16 May, 2014 [facility] [address] [id number] [facility] [address] 16 May, 2014 [facility] [address] [id number] [facility] [address] 15 May, 2014 [facility] [address] [id number] [address] [place] [address], [place] [address] 15 May, 2014 [facility] [address] [id number] [address] [place] [address], [place] [address] May, [facility] [address] [id number] [address] [place] [address], [place] [address] May, [facility] [address] [id number] [address] [place] [address], [place] [address] May, [facility] [address] [id number] [address] [place] [address], [place] [address] May, [facility] [address] [id number] [address] [place] [address], [place] [address] May, [facility] [address] [id number] [address] [place] [address], [place] [address] May, [facility] [address] [id number] [address] [place] [address], [place] [address] May, [facility] [address] [id number] [address] [place] [address], [place] [address] May, [facility] [address] [id number] [address] [place] [address], [place] [address] May, [facility] [address] [id number] [address] [place] [address], [place] [address] May, [facility] [address] [id number] [address] [place] [address], [place] [address] May, [facility] [address] [id number] [address] [place] [address], [place] [address] May, [facility] [address] [id number] [address] [place] [address], [place] [address] 05 May, 2014 [facility] [address] [id number] [address] [place] [address], [place] [address] May, [facility] [address] [id number] [address] [place] [address], [place] [address] May, [facility] [address] [id number] [address] [place] [address], [place] [address] May, [facility] [address] [id number] [address] [place] [address], [place] [address] Apr, [facility] [address] [id number] [address] [place] [address], [place] [address] Apr, [facility] [address] [id number] [address] [place] [address], [place] [address] Apr, [facility] [address] [id number] [address] [place] [address], [place] [address] Apr, [facility] [address] [id number] [address] [place] [address], [place] [address] Apr, [facility] [address] [id number] [address] [place] [address], [place] [address] Apr, [facility] [address] [id number] [address] [place] [address], [place] [address] Apr, [facility] [address] [id number] [address] [place] [address], [place] [address] Apr, [facility] [address] [id number] [address] [place] [address], [place] [address] Apr, [facility] [address] [id number] [address] [place] [address], [place] [address] Apr, [facility] [address] [id number] [address] [place] [address], [place] [address] Mar, [facility] [address] [id number] [address] [place] [address], [place] [address] Mar, [facility] [address] [id number] [address] [place] [address], [place] [address] 31 Mar, 2013 [facility] [address] [id number] [address] [place] [address], [place] [address] Mar, 2013 [facility] [address] [id number] [address] [place] [address], [place] [address] 30 Mar, 2014 [facility] [address] [id number] [address] [place] [address], [place] [address] 30 Mar, 2014 [facility] [address] [id number] [address] [place] [address], [place] [address] Mar, [facility] [address] [id number] [address] [place] [address], [place] [address] Mar, [facility] [address] [id number] [address] [place] [address], [place] [address] Mar, [facility] [address] [id number] [address] [place] [address], [place] [address] Mar, [facility] [address] [id number] [address] [place] [address], [place] [address] Mar, [facility] [address] [id number] [address] [place] [address], [place] [address] Mar, [facility] [address] [id number] [address] [place] [address], [place] [address] Mar, [facility] [address] [id number] [address] [place] [address], [place] [address] Mar, [facility] [address] [id number] [address] [place] [address], [place] [address] Mar, [facility] [address] [id number] [address] [place] [address], [place] [address] Mar, [facility] [address] [id number] [address] [place] [address], [place] [address] Mar, [facility] [address] [id number] [address] [place] [id number] Mar, [facility] [address] [id number] [address] [place] [address], [place] [address] Mar, [facility] [address] [id number] [address] [place] [address], [place] [address] Mar, [facility] [address] [id number] [address] [place] [address], [place] [address] 05 Sep, 2013 [facility] [address] [id number] [address] [place] [address], [place] [id number] 05 Sep, 2013 [facility] [address] [id number] [address] [place] [address], [place] [address] 04 Feb, 2013 [facility] [address] [id number] [address] [place] [address], [place] [id number] 04 Feb, 2013 [facility] [address] [id number] [address] [place] [address], [place] [address] Feb, 2013 [facility] [address] [id number] [address] [place] [address], [place] [address] Feb, 2013 [facility] [address] [id number] [address] [place] [address], [place] [address] Feb, 2013 [facility] [address] [id number] [address] [place] [address], [place] [address] Feb, 2013 [facility] [address] [id number] [address] [place] [address], [place] [address] Feb, 2013 [facility] [address] [id number] [address] [place] [address], [place] [address] Feb, 2013 [facility] [address] [id number] [address] [place] [address], [place] [address] Jan, [facility] [address] [id number] [address] [place] [address], [place] [address] Jan, [facility] [address] [id number] [address] [place] [address], [place] [address] Jan, [facility] [address] [id number] [address] [address] Jan, [facility] [address] [id number] [address] [place] [address] Jan, [facility] [address] [id number] [address] [address] Jan, [facility] [address] [id number] [address] [place] [address], [place] [address] Jan, [facility] [address] [id number] [address] [place] [address], [place] [address] Jan, [facility] [address] [id number] [address] [place] [address], [place] [address] Jan, [facility] [address] [id number] [address] [place] [address], [place] [address] Jan, [facility] [address] [id number] [address] [place] [address], [place] [address] Jan, [facility] [address] [id number] [address] [place] [address], [place] [address] Jan, [facility] [address] [id number] [address] [place] [address], [place] [address] Dec, [facility] [address] [id number] [address] [place] [address], [place] [address] Dec, [facility] [address] [id number] [address] [place] [address], [place] [address] Dec, [facility] [address] [id number] [address] [place] [address], [place] [address] Dec, [facility] [address] [address] [id number] [address] [place] [address], [place] [address] Dec, [facility] [address] [id number] [address] [place] [address], [place] [address] Dec, [facility] [address] [id number] [address] [place] [address], [place] [address] Dec, [facility] [address] [id number] [address] [place] [address], [place] [address] Dec, 2013 [facility] [address] [id number] [address] [place] [address], [place] [address] Dec, [facility] [address] [id number] [address] [place] [address], [place] [address] Dec, [facility] [address] [id number] [address] [place] [address], [place] [address] Dec, [facility] [address] [id number] [address] [place] [address], [place] [address] Dec, [facility] [address] [id number] [address] [place] [address], [place] [address] Nov, [facility] [address] [id number] [address] [place] [address], [place] [address] Nov, [facility] [address] [id number] [address] [place] [address], [place] [address] Nov, [facility] [address] [id number] [address] [place] [address], [place] [address] Nov, [facility] [address] [id number] [address] [place] [address], [place] [address] Nov, [facility] [address] [id number] [address] [place] [address], [place] [address] Nov, [facility] [address] [id number] [address] [place] [address], [place] [address] Nov, [facility] [address] [id number] [address] [place] [address], [place] [address] Nov, [facility] [address] [id number] [address] [place] [address], [place] [address] Nov, [facility] [address] [id number] [address] [place] [address], [place] [address] Nov, [facility] [address] [id number] [address] [place] [address], [place] [address] Nov, [facility] [address] [id number] [address] [place] [address], [place] [address] Nov, [facility] [address] [id number] [address] [place] [address], [place] [address] Nov, [facility] [address] [id number] [address] [place] [address], [place] [address] Nov, [facility] [address] [id number] [address] [place] [address], [place] [address] October, [facility] [address] [id number] [address] [place] [address], [place] [address] October, [facility] [address] [id number] [address] [place] [address], [place] [address] October, [facility] [address] [id number] [address] [place] [address], [place] [address] October, [facility] [address] [id number] [address] [place] [address], [place] [address] October, [facility] [address] [id number] [address] [place] [address], [place] [address] October, [facility] [address] [id number] [address] [place] [address], [place] [address] October, [facility] [address] [id number] [address] [place] [address], [place] [address] October, [facility] [address] [id number] [address] [place] [address], [place] [address] October, [facility] [address] [id number] [address] [place] [address], [place] [address] October, [facility] [address] [id number] [address] [place] [address], [place] [address] October, [facility] [address] [id number] [address] [place] [address], [place] [address] October, [facility] [address] [id number] [address] [address] Sep, [facility] [address] [id number] [facility] [address] Sep, [facility] [address] [id number] [facility] [address] Sep, [facility] [address] [id number] [address] [place] [address], [place] [address] Sep, [facility] [address] [id number] [address] [place] [address], [place] [address] Sep, [facility] [address] [id number] [address] [place] [address], [place] [address] Sep, [facility] [address] [id number] [address] [place] [address], [place] [address] Aug, [facility] [address] [id number] [address] [place] [address], [place] [address] Aug, [facility] [address] [id number] [address] [place] [address], [place] [address] Aug, [facility] [address] [id number] [address] [place] [address], [place] [address] Aug, [facility] [address] [id number] [address] [place] [address], [place] [address] Aug, [facility] [address] [id number] [address] [place] [address], [place] [address] Aug, [facility] [address] [id number] [address] [place] [address], [place] [address] Jul, [facility] [address] [id number] [address] [place] [address], [place] [address] Jul, [facility] [address] [id number] [address] [place] [address], [place] [address] Jul, [facility] [address] [id number] [address] [place] [address], [place] [address] Jul, [facility] [address] [id number] [address] [place] [address], [place] [address] Jul, [facility] [address] [id number] [address] [place] [address], [place] [address] Jul, [facility] [address] [id number] [address] [place] [address], [place] [address] Jul, [facility] [address] [id number] [address] [place] [address], [place] [address] Jul, [facility] [address] [id number] [address] [place] [address], [place] [address] Jul, [facility] [address] [id number] [address] [place] [address], [place] [address] Jul, [facility] [address] [id number] [address] [place] [address], [place] [address] Jun, [facility] [address] [id number] [address] [place] [address], [place] [address] Jun, [facility] [address] [id number] [address] [place] [address], [place] [address] Jun, [facility] [address] [id number] [address] [place] [address], [place] [address] Jun, [facility] [address] [id number] [address] [place] [address], [place] [address] Jun, [facility] [address] [id number] [address] [place] [address], [place] [address] Jun, [facility] [address] [id number] [address] [place] [address], [place] [address] Jun, [facility] [address] [id number] [address] [place] [address], [place] [address] Jun, [facility] [address] [id number] [address] [place] [address], [place] [address] May, [facility] [address] [id number] [address] [place] [address], [place] [address] May, [facility] [address] [id number] [address] [place] [address], [place] [address] May, [facility] [address] [id number] [address] [place] [address], [place] [address] May, [facility] [address] [id number] [address] [place] [address], [place] [address] May, [facility] [address] [id number] [address] [place] [address], [place] [address] May, [facility] [address] [id number] [address] [place] [address], [place] [address] May, [facility] [address] [id number] [address] [place] [address], [place] [address] May, [facility] [address] [id number] [address] [place] [address], [place] [address] Apr, [facility] [address] [id number] [address] [place] [address], [place] [address] Apr, [facility] [address] [id number] [address] [place] [address], [place] [address] Apr, [facility] [address] [id number] [address] [place] [address], [place] [address] Apr, [facility] [address] [id number] [address] [place] [address], [place] [address] Apr, [facility] [address] [id number] [address] [place] [address], [place] [address] Apr, [facility] [address] [id number] [address] [place] [address], [place] [address] Mar, [facility] [address] [id number] [address] [place] [address], [place] [address] Mar, [facility] [address] [id number] [address] [place] [address], [place] [address] Mar, [facility] [address] [id number] [address] [place] [address], [place] [address] Mar, [facility] [address] [id number] [address] [place] [address], [place] [address] Mar, [facility] [address] [id number] [address] [place] [address], [place] [address] Mar, [facility] [address] [id number] [address] [place] [address], [place] [address] Mar, [facility] [address] [id number] [address] [place] [address], [place] [address] 30 Feb, 2013 [facility] [address] [id number] [address] [place] [address], [place] [address] 30 Feb, 2013 [facility] [address] [id number] [address] [place] [address], [place] [address] Feb, [facility] [address] [id number] [address] [place] [address], [place] [address] Feb, [facility] [address] [id number] [address] [place] [address], [place] [address] Feb, [facility] [address] [id number] [address] [place] [address], [place] [address] Feb, [facility] [address] [id number] [address] [place] [address], [place] [address] Jan, [facility] [address] [id number] [address] [place] [address], [place] [address] Jan, [facility] [address] [id number] [address] [place] [address], [place] [address] Jan, [facility] [address] [id number] [address] [place] [address], [place] [address] Jan, [facility] [address] [id number] [address] [place] [address], [place] [address] Jan, [facility] [address] [id number] [address] [place] [address], [place] [address] Jan, [facility] [address] [id number] [address] [place] [address], [place] [address] Jan, [facility] [address] [id number] [address] [place] [address], [place] [address] Jan, [facility] [address] [id number] [address] [place] [address], [place] [address] Jan, [facility] [address] [id number] [address] [place] [address], [place] [address] Dec, [facility] [address] [id number] [address] [place] [address], [place] [address] Dec, [facility] [address] [id number] [address] [place] [address], [place] [address] Dec, [facility] [address] [id number] [address] [place] [address], [place] [address] Dec, [facility] [address] [id number] [address] [place] [address], [place] [address] Dec, [facility] [address] [id number] [address] [place] [address], [place] [address] Dec, [facility] [address] [id number] [address] [place] [address], [place] [address] Dec, [facility] [address] [id number] [address] [place] [address], [place] [address] Dec, [facility] [address] [id number] [address] [place] [address], [place] [address] Dec, [facility] [address] [id number] [address] [place] [address], [place] [address] Dec, [facility] [address] [id number] [address] [place] [address], [place] [address] Dec, [facility] [address] [id number] [address] [place] [address], [place] [address] Dec, [facility] [address] [id number] [address] [place] [address], [place] [address] Dec, [facility] [address] [id number] [address] [place] [address], [place] [address] Nov, [facility] [address] [id number] [address] [place] [address], [place] [address] Nov, [facility] [address] [id number] [address] [place] [address], [place] [address] Nov, [facility] [address] [id number] [address] [place] [address], [place] [address] Nov, [facility] [address] [id number] [address] [place] [address], [place] [address] October, [facility] [address] [id number] [address] [place] [address], [place] [address] October, [facility] [address] [id number] [address] [place] [address], [place] [address] October, [facility] [address] [id number] [address] [place] [address], [place] [address] October, [facility] [address] [id number] [address] [place] [address], [place] [address] October, [facility] [address] [id number] [address] [place] [address], [place] [address] October, [facility] [address] [id number] [address] [place] [address], [place] [address] Sep, [facility] [address] [id number] [address] [place] [address], [place] [address] Sep, [facility] [address] [id number] [address] [place] [address], [place] [address] Sep, [facility] [address] [id number] [address] [place] [address], [place] [address] Sep, [facility] [address] [id number] [address] [place] [address], [place] [address] 19 Sep, 2012 [facility] [address] [id number] [address] [place] [address], [place] [address] 16 Sep, 2012 [facility] [address] [id number] [address] [place] [address], [place] [address] Sep, [facility] [address] [id number] [address] [place] [address], [place] [address] Sep, [facility] [address] [id number] [address] [place] [address], [place] [address] Sep, [facility] [address] [id number] [address] [place] [address], [place] [address] Sep, [facility] [address] [id number] [address] [place] [address], [place] [address] Sep, [facility] [address] [id number] [address] [place] [address], [place] [address] Aug, [facility] [address] [id number] [address] [place] [address], [place] [address] Aug, [facility] [address] [id number] [address] [place] [address], [place] [address] 25 Aug, 2012 [facility] [address] [id number] [address] [place] [address], [place] [address] Aug, [facility] [address] [id number] [address] [place] [address], [place] [address] 19 Aug, 2012 [facility] [address] [id number] [address] [place] [address], [place] [address] 18 Aug, 2012 [facility] [address] [id number] [address] [place] [address], [place] [address] 17 Aug, 2012 [facility] [address] [id number] [address] [place] [address], [place] [address] 15 Aug, 2012 [facility] [address] [id number] [address] [place] [address], [place] [address] 15 Aug, 2012 [facility] [address] [id number] [address] [place] [address], [place] [address] Aug, [facility] [address] [id number] [address] [place] [address], [place] [address] Aug, [facility] [address] [id number] [address] [place] [address], [place] [address] Aug, [facility] [address] [id number] [address] [place] [address], [place] [address] Jul, [facility] [address] [id number] [address] [place] [address], [place] [address] Jul, [facility] [address] [id number] [address] [place] [address], [place] [address] Jul, [facility] [address] [id number] [address] [place] [address], [place] [address] Jul, [facility] [address] [id number] [address] [place] [address], [place] [address] Jul, [facility] [address] [id number] [address] [place] [address], [place] [address] Jul, [facility] [address] [id number] [address] [place] [address], [place] [address] Jul, [facility] [address] [id number] [address] [place] [address], [place] [address] Jul, [facility] [address] [id number] [address] [place] [address], [place] [address] Jul, [facility] [address] [id number] [address] [place] [address], [place] [address] Jul, [facility] [address] [id number] [address] [place] [address], [place] [address] May, [facility] [id number] [id number] [place] [id number] May, [facility] [address] [id number] [address] [address] May, [facility] [address] [id number] [address] [place] [address] May, [facility] [address] [id number] [address] [place] [address] May, [facility] [address] [id number] [address] [place] [address] Apr, [facility] [place] [address] [id number] [place] [id number] Apr, [facility] [address] [id number] [address] [place] [address] Apr, [facility] [address] [id number] [address] [place] [address] Mar, [facility] [place] [address] [id number] [place] [id number] Mar, [facility] [address] [id number] [address] [place] [address] Mar, [facility] [address] [id number] [place] [id number] Feb, [facility] [address] [id number] [address] [place] [address] Feb, [facility] [address] [id number] [address] [place] [address] Feb, [facility] [address] [id number] [place] [id number] Feb, [facility] [place] [address] [id number] [place] [id number] Feb, [facility] [place] [address] [id number] [place] [id number] Jan, [facility] [address] [id number] [address] [place] [address] Jan, [facility] [place] [address] [id number] [place] [id number] Jan, [facility] [place] [address] [id number] [place] [id number] Jan, [facility] [place] [address] [id number] [place] [id number] Jan, [facility] [address] [facility] [id number] [place] [address] Jan, [facility] [address] [facility] [id number] [address] [place] [address] Jan, [facility] [address] [facility] [id number] [address] [place] [address] Aug, [facility] [place] [address] [id number] [place] [id number] Aug, [facility] [address] [facility] [id number] [address] [place] [address] Jul, [facility] [address] [facility] [id number] [address] [place] [address] Jul, [facility] [address] [facility] [id number] [address] [place] [address] Jul, [facility] [place] [address] [id number] [place] [id number] Jul, 2011 [facility] [address] [facility] [id number] [address] [place] [address] Jul, [facility] [place] [address] [id number] [place] [id number] Jul, [facility] [address] [facility] [id number] [address] [place] [address] Jul, [facility] [place] [address] [id number] [place] [id number] Jul, [facility] [place] [address] [id number] [place] [id number] Jul, [facility] [place] [address] [id number] [place] [id number] Jul, [facility] [address] [facility] [id number] [address] [place] [address] May, [facility] [address] [id number] [address] [place] [address] May, [facility] [address] [id number] [address] [place] [address] May, [facility] [address] [id number] [address] [place] [address] Apr, [facility] [address] [id number] [address] [place] [address] Jan, [facility] [address] [id number] [address] [place] [address] Jan, [facility] [address] [id number] [address] [place] [address] Dec, [facility] [address] [id number] [address] [place] [address] Dec, [facility] [address] [id number] [address] [place] [id number] May, [facility] [address] [id number] [address] [place] [id number] Mar, [facility] [address] [id number] [address] [place] [address] Mar, [facility] [address] [id number] [address] [place] [id number] 14 Jan, 2009 IMMUNIZATIONS No Known Immunizations [...]
--- OUTSIDE RECORDS SUMMARY | 2020-01-28 13:14 | XMS REPORT ---
Author Author Heydi Candelario Doctor Organization [facility] Address Unknown Phone Unavailable Care Team Providers Care Preassembler And Inspector Name Role Phone Migration, Doctor Unavailable Unavailable PROBLEMS Type Condition ICD9-CM Code HNQ29-DP Code Onset Dates Condition S tatus SNOMED Code Problem Chronic pain syndrome G89.4 Active 782553732 Problem Sore throat J02.9 Active 44804101 3 Problem Choriocarcinoma C58 Active 1881 51884 Problem [facility] current use of anticoagulant Z79.01 Active 948723281 Problem History of venous thromboembolism V12.51 Active 340138856 Problem Cellulitis of unspecified part of limb L03.119 Active 208092020 Problem Gastroesophageal reflux disease without esophagitis K21.9 Active 995323459 Problem History of pulmonary embolism Z86.711 Active 098172622 Problem Pseudotumor cerebri G93.2 Active 70880527 Problem History of DVT (deep vein thrombosis) Z86.718 Active 278523437 ALLERGIES No Information ENCOUNTERS Encounter Location Date Diagnosis [place] [address] [place] [id number] [address] [place] [address] 14 Nov, 2019 Encounter for screening labo ratory testing for COVID-19 virus Z11.59 [place] [address] [place] [id number] [address] [place] [address] 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, 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 [place] [id number] [facility] [id number] [address] [place] [address] Apr, [facility] current use of ant icoagulant Z79.01 [place] [address] [address] [facility] [id number] [address] [place] [address] Apr, Cellulitis of unspecified pa rt of limb L03.119 ; Allergic contact dermatitis due to adhesives L23.1 and Chronic pain syndrome G89.4 [place] [address] [address] Apr, [facility] [address] [address] Apr, [facility] current use of ant icoagulant Z79.01 ; Cellulitis of unspecified part of limb L03.119 ; Chronic pain syndrome G89.4 and Anxiety F41.9 [place] [address] [address] Apr, [facility] [address] [address] Apr, [place] [address] [address] Mar, [place] [address] [address] Mar, [place] [address] [address] Mar, Sore throat J02.9 ; Gastroes ophageal reflux disease without esophagitis K21.9 ; Pseudotumor cerebri G93.2 ; Chronic pain syndrome G89.4 ; Choriocarcinoma C58 ; History of pulmonary embolism Z86.711 ; History of DVT (deep vein thrombosis) Z86.718 ; Anxiety F41.9 and Tachycardia R00.0 [place] [address] [place] [id number] [address] [place] [address] Feb, Anxiety 300.00 and Chronic p ain 338.29 [facility] [address] [place] [id number] [address] [place] [address] Feb, [facility] [address] [address] Feb, [facility] [address] [place] [id number] [address] [place] [address] Jan, 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.61 and Dysuria 788.1 [place] [address] [place] [id number] [address] [place] [address] Jan, Dysuria 788.1 [place] [address] [address] Jan, Anxiety 300.00 and Chronic p ain 338.29 [place] [address] [address] Jan, [place] [address] [address] Jan, [place] [address] [address] Jan, [place] [address] [address] Dec, Weakness 780.79 [place] [address] [address] Dec, 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.[address] [address] Dec, Palpitations 785.1 ; Tremor 781.0 ; Weakness 780.79 ; [facility] current use of anticoagulant therapy V58.61 and Yeast vaginitis 112.1 [place] [address] [place] [id number] [address] [place] [address] Dec, [place] [address] [address] Dec, Cervicalgia 723.1 ; Tachycar yoseph 785.0 ; Pseudotumor cerebri 348.2 and History of venous thromboembolism V12.51 [place] [address] [address] Nov, [place] [address] [place] [id number] [address] [place] [address] Nov, [place] [address] [place] [address] [place] [address] 24 Nov, 2014 Tachycardia 785.0 ; Pseudotu mor cerebri 348.2 ; Anxiety 300.00 and History of venous thromboembolism V12.51 [facility] [address] [id number] [address] [place] [address] 19 Nov, 2014 [facility] [address] [id number] [address] [place] [address] 18 Nov, 2014 [facility] [address] [id number] [address] [place] [address] 16 Nov, 2014 [facility] [address] [id number] [address] [place] [address] Nov, [facility] [address] [facility] [id number] [address] [place] [address] Nov, [facility] [address] [facility] [id number] [address] [place] [address] Nov, [facility] [address] [id number] [address] [place] [address] Nov, [facility] [address] [facility] [id number] [address] [place] [address] October, [facility] [address] [facility] [id number] [address] [place] [address] October, [facility] [address] [facility] [id number] [address] [place] [address] October, Pain in thoracic spine 724.1 and Tachycardia 785.0 [facility] [address] [id number] [address] [place] [address] October, [facility] [address] [facility] [id number] [address] [place] [address] October, [facility] [address] [facility] [id number] [address] [place] [address] 14 Sep, 2014 [facility] [address] [facility] [id number] [address] [place] [address] Sep, [facility] [address] [id number] [address] [place] [address], [place] [address] Aug, [facility] [address] [id number] [address] [place] [address], [place] [address] Aug, [facility] [address] [id number] [address] [place] [address], [place] [address] Aug, [facility] [address] [id number] [address] [place] [address], [place] [address] Aug, [facility] [address] [id number] [address] [place] [address], [place] [address] Aug, [facility] [address] [id number] [address] [place] [address], [place] [address] Aug, [facility] [address] [id number] [address] [place] [address], [place] [address] Aug, [facility] [address] [id number] [address] [place] [address], [place] [address] Aug, [facility] [address] [id number] [address] [place] [address], [place] [address] Aug, [facility] [address] [id number] [address] [place] [address], [place] [address] Aug, [facility] [address] [id number] [address] [place] [address], [place] [address] Aug, [facility] [address] [id number] [address] [place] [address], [place] [address] Aug, [facility] [address] [id number] [address] [place] [address], [place] [address] Jul, [facility] [address] [id number] [address] [place] [address], [place] [address] Jul, [facility] [address] [id number] [address] [place] [address], [place] [address] Jul, [facility] [address] [id number] [address] [place] [address], [place] [address] 23 Jul, 2014 [facility] [address] [id number] [address] [place] [address], [place] [address] 23 Jul, 2014 [facility] [address] [id number] [address] [place] [address], [place] [address] 23 Jul, 2014 [facility] [address] [id number] [address] [place] [address], [place] [address] 23 Jul, 2014 [facility] [address] [id number] [address] [place] [address], [place] [address] 23 Jul, 2014 [facility] [address] [id number] [address] [place] [address], [place] [address] 20 Jul, 2014 [facility] [address] [id number] [address] [place] [address], [place] [address] 20 Jul, 2014 [facility] [address] [id number] [address] [place] [address] 19 Jul, 2014 [facility] [address] [id number] [address] [place] [address], [place] [address] 19 Jul, 2014 [facility] [address] [id number] [address] [place] [address] 17 Jul, 2014 [facility] [address] [id number] [address] [place] [address] 17 Jul, 2014 [facility] [address] [id number] [address] [place] [address] 16 Jul, 2014 [facility] [address] [id number] [address] [place] [address], [place] [address] 16 Jul, 2014 [facility] [address] [id number] [address] [place] [address] 16 Jul, 2014 [facility] [address] [id number] [address] [place] [address] 16 Jul, 2014 [facility] [address] [id number] [address] [place] [address], [place] [address] 13 Jul, 2014 [facility] [address] [id number] [address] [place] [address], [place] [address] Jul, 2014 [facility] [address] [id number] [address] [place] [address], [place] [address] Jul, 2014 [facility] [address] [id number] [address] [place] [address], [place] [address] Jul, 2014 [facility] [address] [id number] [address] [place] [address], [place] [address] Jul, 2014 [facility] [address] [id number] [address] [place] [address], [place] [address] Jul, [facility] [address] [id number] [address] [place] [address], [place] [address] Jul, 2014 [facility] [address] [id number] [address] [place] [address], [place] [address] Jul, [facility] [address] [id number] [address] [place] [address], [place] [address] Jul, [facility] [address] [id number] [address] [place] [address], [place] [address] Jul, [facility] [address] [id number] [address] [place] [address] Jul, [facility] [address] [id number] [address] [place] [address] Jul, [facility] [address] [id number] [address] [place] [address], [place] [address] Jun, [facility] [address] [id number] [address] [place] [address] Jun, [facility] [address] [id number] [address] [place] [address] Jun, [facility] [address] [id number] [address] [place] [address] Jun, [facility] [address] [id number] [address] [place] [address], [place] [address] Jun, [facility] [address] [id number] [address] [place] [address], [place] [address] Jun, [facility] [address] [id number] [address] [place] [address], [place] [address] Jun, [facility] [address] [id number] [address] [place] [address], [place] [address] Jun, [facility] [address] [id number] [address] [place] [address], [place] [address] Jun, [facility] [address] [id number] [address] [place] [address], [place] [address] Jun, [facility] [address] [id number] [address] [place] [address], [place] [address] Jun, [facility] [address] [id number] [address] [place] [address], [place] [address] Jun, [facility] [address] [id number] [address] [place] [address], [place] [address] Jun, [facility] [address] [id number] [address] [place] [address], [place] [address] Jun, [facility] [address] [id number] [address] [place] [address], [place] [address] Jun, [facility] [address] [id number] [address] [place] [address], [place] [address] Jun, [facility] [address] [id number] [address] [place] [address], [place] [address] Jun, [facility] [address] [id number] [address] [place] [address], [place] [address] Jun, [facility] [address] [id number] [address] [place] [address], [place] [address] Jun, [facility] [address] [id number] [address] [place] [address], [place] [address] Jun, [facility] [address] [id number] [address] [place] [address], [place] [address] May, [facility] [address] [id number] [address] [place] [address], [place] [address] May, [facility] [address] [id number] [address] [place] [address], [place] [address] May, [facility] [address] [id number] [address] [place] [address], [place] [address] May, [facility] [address] [id number] [address] [place] [address], [place] [address] May, [facility] [address] [id number] [address] [place] [address], [place] [address] May, [facility] [address] [id number] [address] [place] [address], [place] [address] May, [facility] [address] [id number] [address] [place] [address], [place] [address] May, [facility] [address] [id number] [address] [place] [address], [place] [address] May, [facility] [address] [id number] [address] [place] [address], [place] [address] May, [facility] [address] [id number] [address] [place] [address], [place] [address] May, [facility] [address] [id number] [address] [place] [address], [place] [address] 18 May, 2014 [facility] [address] [id number] [address] [place] [address], [place] [address] 18 May, 2014 [facility] [address] [id number] [address] [place] [address], [place] [address] 17 May, 2014 [facility] [address] [id number] [address] [place] [address], [place] [address] 16 May, 2014 [facility] [address] [id number] [facility] [place] [address] 16 May, 2014 [facility] [address] [id number] [facility] [address] 15 May, 2014 [facility] [address] [id number] [address] [place] [address], [place] [address] 15 May, 2014 [facility] [address] [id number] [address] [place] [address], [place] [address] May, [facility] [address] [id number] [address] [place] [address], [place] [address] May, [facility] [address] [id number] [address] [place] [address], [place] [address] May, [facility] [address] [id number] [address] [place] [address], [place] [address] May, [facility] [address] [id number] [address] [place] [address], [place] [address] May, [facility] [address] [id number] [address] [place] [address], [place] [address] May, [facility] [address] [id number] [address] [place] [address], [place] [address] May, [facility] [address] [id number] [address] [place] [address], [place] [address] May, [facility] [address] [id number] [address] [place] [address], [place] [address] May, [facility] [address] [id number] [address] [place] [address], [place] [address] May, [facility] [address] [id number] [address] [place] [address], [place] [address] May, [facility] [address] [id number] [address] [place] [address], [place] [address] May, [facility] [address] [id number] [address] [place] [address], [place] [address] 05 May, 2014 [facility] [address] [id number] [address] [place] [address], [place] [address] May, [facility] [address] [id number] [address] [place] [address], [place] [address] May, [facility] [address] [id number] [address] [place] [address], [place] [address] May, [facility] [address] [id number] [address] [place] [address], [place] [address] Apr, [facility] [address] [id number] [address] [place] [address], [place] [address] Apr, [facility] [address] [id number] [address] [place] [address], [place] [address] Apr, [facility] [address] [id number] [address] [place] [address], [place] [address] Apr, [facility] [address] [id number] [address] [place] [address], [place] [address] Apr, [facility] [address] [id number] [address] [place] [address], [place] [address] Apr, [facility] [address] [id number] [address] [place] [address], [place] [address] Apr, [facility] [address] [id number] [address] [place] [address], [place] [address] Apr, [facility] [address] [id number] [address] [place] [address], [place] [address] Apr, [facility] [address] [id number] [address] [place] [address], [place] [address] Apr, [facility] [address] [id number] [address] [place] [address], [place] [address] Mar, [facility] [address] [id number] [address] [place] [address], [place] [address] Mar, [facility] [address] [id number] [address] [place] [address], [place] [address] 31 Mar, 2013 [facility] [address] [id number] [address] [place] [address], [place] [address] Mar, 2013 [facility] [address] [id number] [address] [place] [address], [place] [address] 30 Mar, 2014 [facility] [address] [id number] [address] [place] [address], [place] [address] 30 Mar, 2014 [facility] [address] [id number] [address] [place] [address], [place] [address] Mar, [facility] [address] [id number] [address] [place] [address], [place] [address] Mar, [facility] [address] [id number] [address] [place] [address], [place] [address] Mar, [facility] [address] [id number] [address] [place] [address], [place] [address] Mar, [facility] [address] [id number] [address] [place] [address], [place] [address] Mar, [facility] [address] [id number] [address] [place] [address], [place] [address] Mar, [facility] [address] [id number] [address] [place] [address], [place] [address] Mar, [facility] [address] [id number] [address] [place] [address], [place] [address] Mar, [facility] [address] [id number] [address] [place] [address], [place] [address] Mar, [facility] [address] [id number] [address] [place] [address], [place] [address] Mar, [facility] [address] [id number] [address] [place] [address], [place] [address] Mar, [facility] [address] [id number] [address] [place] [address] Mar, [facility] [address] [id number] [address] [place] [address], [place] [address] Mar, [facility] [address] [id number] [address] [place] [address], [place] [address] Mar, [facility] [address] [id number] [address] [place] [address], [place] [address] 05 Sep, 2013 [facility] [address] [id number] [address] [place] [address], [place] [address] 05 Sep, 2013 [facility] [address] [id number] [address] [place] [address], [place] [address] 04 Feb, 2013 [facility] [address] [id number] [address] [place] [address], [place] [address] 04 Feb, 2013 [facility] [address] [id number] [address] [place] [address], [place] [address] Feb, 2013 [facility] [address] [id number] [address] [place] [address], [place] [address] Feb, 2013 [facility] [address] [id number] [address] [place] [address], [place] [address] Feb, 2013 [facility] [address] [id number] [address] [place] [address], [place] [address] Feb, 2013 [facility] [address] [id number] [address] [place] [address], [place] [address] Feb, 2013 [facility] [address] [id number] [address] [place] [address], [place] [address] Feb, 2013 [facility] [address] [id number] [address] [place] [address], [place] [address] Jan, [facility] [address] [id number] [address] [place] [address], [place] [address] Jan, [facility] [address] [id number] [address] [place] [address], [place] [address] Jan, [facility] [address] [id number] [facility] [place] [address] Jan, [facility] [address] [id number] [facility] [address] Jan, [facility] [address] [id number] [facility] [address] Jan, [facility] [address] [id number] [address] [place] [address], [place] [address] Jan, [facility] [address] [id number] [address] [place] [address], [place] [address] Jan, [facility] [address] [id number] [address] [place] [address], [place] [address] Jan, [facility] [address] [id number] [address] [place] [address], [place] [address] Jan, [facility] [address] [id number] [address] [place] [address], [place] [address] Jan, [facility] [address] [id number] [address] [place] [address], [place] [address] Jan, [facility] [address] [id number] [address] [place] [address], [place] [address] Dec, [facility] [address] [id number] [address] [place] [address], [place] [address] Dec, [facility] [address] [id number] [address] [place] [address], [place] [address] Dec, [facility] [address] [id number] [address] [place] [address], [place] [address] Dec, [facility] [address] [id number] [address] [place] [address], [place] [address] Dec, [facility] [address] [address] [id number] [address] [place] [address], [place] [address] Dec, [facility] [address] [id number] [address] [place] [address], [place] [address] Dec, [facility] [address] [id number] [address] [place] [address], [place] [address] Dec, 2013 [facility] [address] [id number] [address] [place] [address], [place] [address] Dec, [facility] [address] [id number] [address] [place] [address], [place] [address] Dec, [facility] [address] [id number] [address] [place] [address], [place] [address] Dec, [facility] [address] [id number] [address] [place] [address], [place] [address] Dec, [facility] [address] [id number] [address] [place] [address], [place] [address] Nov, [facility] [address] [id number] [address] [place] [address], [place] [address] Nov, [facility] [address] [id number] [address] [place] [address], [place] [address] Nov, [facility] [address] [id number] [address] [place] [address], [place] [address] Nov, [facility] [address] [id number] [address] [place] [address], [place] [address] Nov, [facility] [address] [id number] [address] [place] [address], [place] [address] Nov, [facility] [address] [id number] [address] [place] [address], [place] [address] Nov, [facility] [address] [id number] [address] [place] [address], [place] [address] Nov, [facility] [address] [id number] [address] [place] [address], [place] [address] Nov, [facility] [address] [id number] [address] [place] [address], [place] [address] Nov, [facility] [address] [id number] [address] [place] [address], [place] [address] Nov, [facility] [address] [id number] [address] [place] [address], [place] [address] Nov, [facility] [address] [id number] [address] [place] [address], [place] [address] Nov, [facility] [address] [id number] [address] [place] [address], [place] [address] Nov, [facility] [address] [id number] [address] [place] [address], [place] [address] October, [facility] [address] [id number] [address] [place] [address], [place] [address] October, [facility] [address] [id number] [address] [place] [address], [place] [address] October, [facility] [address] [id number] [address] [place] [address], [place] [address] October, [facility] [address] [id number] [address] [place] [address], [place] [address] October, [facility] [address] [id number] [address] [place] [address], [place] [address] October, [facility] [address] [id number] [address] [place] [address], [place] [address] October, [facility] [address] [id number] [address] [place] [address], [place] [address] October, [facility] [address] [id number] [address] [place] [address], [place] [address] October, [facility] [address] [id number] [address] [place] [address], [place] [address] October, [facility] [address] [id number] [address] [place] [address], [place] [address] October, [facility] [address] [id number] [address] [place] [address], [place] [address] October, [facility] [address] [id number] [facility] [place] [address] Sep, [facility] [address] [id number] [facility] [address] Sep, [facility] [address] [id number] [facility] [place] [address] Sep, [facility] [address] [id number] [address] [place] [address], [place] [address] Sep, [facility] [address] [id number] [address] [place] [address], [place] [address] Sep, [facility] [address] [id number] [address] [place] [address], [place] [address] Sep, [facility] [address] [id number] [address] [place] [address], [place] [address] Aug, [facility] [address] [id number] [address] [place] [address], [place] [address] Aug, [facility] [address] [id number] [address] [place] [address], [place] [address] Aug, [facility] [address] [id number] [address] [place] [address], [place] [address] Aug, [facility] [address] [id number] [address] [place] [address], [place] [address] Aug, [facility] [address] [id number] [address] [place] [address], [place] [address] Aug, [facility] [address] [id number] [address] [place] [address], [place] [address] Jul, [facility] [address] [id number] [address] [place] [address], [place] [address] Jul, [facility] [address] [id number] [address] [place] [address], [place] [address] Jul, [facility] [address] [id number] [address] [place] [address], [place] [address] Jul, [facility] [address] [id number] [address] [place] [address], [place] [address] Jul, [facility] [address] [id number] [address] [place] [address], [place] [address] Jul, [facility] [address] [id number] [address] [place] [address], [place] [address] Jul, [facility] [address] [id number] [address] [place] [address], [place] [address] Jul, [facility] [address] [id number] [address] [place] [address], [place] [address] Jul, [facility] [address] [id number] [address] [place] [address], [place] [address] Jul, [facility] [address] [id number] [address] [place] [address], [place] [address] Jun, [facility] [address] [id number] [address] [place] [address], [place] [address] Jun, [facility] [address] [id number] [address] [place] [address], [place] [address] Jun, [facility] [address] [id number] [address] [place] [address], [place] [address] Jun, [facility] [address] [id number] [address] [place] [address], [place] [address] Jun, [facility] [address] [id number] [address] [place] [address], [place] [address] Jun, [facility] [address] [id number] [address] [place] [address], [place] [address] Jun, [facility] [address] [id number] [address] [place] [address], [place] [address] Jun, [facility] [address] [id number] [address] [place] [address], [place] [address] May, [facility] [address] [id number] [address] [place] [address], [place] [address] May, [facility] [address] [id number] [address] [place] [address], [place] [address] May, [facility] [address] [id number] [address] [place] [address], [place] [address] May, [facility] [address] [id number] [address] [place] [address], [place] [address] May, [facility] [address] [id number] [address] [place] [address], [place] [address] May, [facility] [address] [id number] [address] [place] [address], [place] [address] May, [facility] [address] [id number] [address] [place] [address], [place] [address] May, [facility] [address] [id number] [address] [place] [address], [place] [address] Apr, [facility] [address] [id number] [address] [place] [address], [place] [address] Apr, [facility] [address] [id number] [address] [place] [address], [place] [address] Apr, [facility] [address] [id number] [address] [place] [address], [place] [address] Apr, [facility] [address] [id number] [address] [place] [address], [place] [address] Apr, [facility] [address] [id number] [address] [place] [address], [place] [address] Apr, [facility] [address] [id number] [address] [place] [address], [place] [address] Mar, [facility] [address] [id number] [address] [place] [address], [place] [address] Mar, [facility] [address] [id number] [address] [place] [address], [place] [address] Mar, [facility] [address] [id number] [address] [place] [address], [place] [address] Mar, [facility] [address] [id number] [address] [place] [address], [place] [address] Mar, [facility] [address] [id number] [address] [place] [address], [place] [address] Mar, [facility] [address] [id number] [address] [place] [address], [place] [address] Mar, [facility] [address] [id number] [address] [place] [address], [place] [address] 30 Feb, 2013 [facility] [address] [id number] [address] [place] [address], [place] [address] 30 Feb, 2013 [facility] [address] [id number] [address] [place] [address], [place] [address] Feb, [facility] [address] [id number] [address] [place] [address], [place] [address] Feb, [facility] [address] [id number] [address] [place] [address], [place] [address] Feb, [facility] [address] [id number] [address] [place] [address], [place] [address] Feb, [facility] [address] [id number] [address] [place] [address], [place] [address] Jan, [facility] [address] [id number] [address] [place] [address], [place] [address] Jan, [facility] [address] [id number] [address] [place] [address], [place] [address] Jan, [facility] [address] [id number] [address] [place] [address], [place] [address] Jan, [facility] [address] [id number] [address] [place] [address], [place] [address] Jan, [facility] [address] [id number] [address] [place] [address], [place] [address] Jan, [facility] [address] [id number] [address] [place] [address], [place] [address] Jan, [facility] [address] [id number] [address] [place] [address], [place] [address] Jan, [facility] [address] [id number] [address] [place] [address], [place] [address] Jan, [facility] [address] [id number] [address] [place] [address], [place] [address] Dec, [facility] [address] [id number] [address] [place] [address], [place] [address] Dec, [facility] [address] [id number] [address] [place] [address], [place] [address] Dec, [facility] [address] [id number] [address] [place] [address], [place] [address] Dec, [facility] [address] [id number] [address] [place] [address], [place] [address] Dec, [facility] [address] [id number] [address] [place] [address], [place] [address] Dec, [facility] [address] [id number] [address] [place] [address], [place] [address] Dec, [facility] [address] [id number] [address] [place] [address], [place] [address] Dec, [facility] [address] [id number] [address] [place] [address], [place] [address] Dec, [facility] [address] [id number] [address] [place] [address], [place] [address] Dec, [facility] [address] [id number] [address] [place] [address], [place] [address] Dec, [facility] [address] [id number] [address] [place] [address], [place] [address] Dec, [facility] [address] [id number] [address] [place] [address], [place] [address] Dec, [facility] [address] [id number] [address] [place] [address], [place] [address] Nov, [facility] [address] [id number] [address] [place] [address], [place] [address] Nov, [facility] [address] [id number] [address] [place] [address], [place] [address] Nov, [facility] [address] [id number] [address] [place] [address], [place] [address] Nov, [facility] [address] [id number] [address] [place] [address], [place] [address] October, [facility] [address] [id number] [address] [place] [address], [place] [address] October, [facility] [address] [id number] [address] [place] [address], [place] [address] October, [facility] [address] [id number] [address] [place] [address], [place] [address] October, [facility] [address] [id number] [address] [place] [address], [place] [address] October, [facility] [address] [id number] [address] [place] [address], [place] [address] October, [facility] [address] [id number] [address] [place] [address], [place] [address] Sep, [facility] [address] [id number] [address] [place] [address], [place] [address] Sep, [facility] [address] [id number] [address] [place] [address], [place] [address] Sep, [facility] [address] [id number] [address] [place] [address], [place] [address] Sep, [facility] [address] [id number] [address] [place] [address], [place] [address] 19 Sep, 2012 [facility] [address] [id number] [address] [place] [address], [place] [address] 16 Sep, 2012 [facility] [address] [id number] [address] [place] [address], [place] [address] Sep, [facility] [address] [id number] [address] [place] [address], [place] [address] Sep, [facility] [address] [id number] [address] [place] [address], [place] [address] Sep, [facility] [address] [id number] [address] [place] [address], [place] [address] Sep, [facility] [address] [id number] [address] [place] [address], [place] [address] Sep, [facility] [address] [id number] [address] [place] [address], [place] [address] Aug, [facility] [address] [id number] [address] [place] [address], [place] [address] Aug, [facility] [address] [id number] [address] [place] [address], [place] [address] 25 Aug, 2012 [facility] [address] [id number] [address] [place] [address], [place] [address] Aug, [facility] [address] [id number] [address] [place] [address], [place] [address] 19 Aug, 2012 [facility] [address] [id number] [address] [place] [address], [place] [address] 18 Aug, 2012 [facility] [address] [id number] [address] [place] [address], [place] [address] 17 Aug, 2012 [facility] [address] [id number] [address] [place] [address], [place] [address] 15 Aug, 2012 [facility] [address] [id number] [address] [place] [address], [place] [address] 15 Aug, 2012 [facility] [address] [id number] [address] [place] [address], [place] [address] Aug, [facility] [address] [id number] [address] [place] [address], [place] [address] Aug, [facility] [address] [id number] [address] [place] [address], [place] [address] Aug, [facility] [address] [id number] [address] [place] [address], [place] [address] Jul, [facility] [address] [id number] [address] [place] [address], [place] [address] Jul, [facility] [address] [id number] [address] [place] [address], [place] [address] Jul, [facility] [address] [id number] [address] [place] [address], [place] [address] Jul, [facility] [address] [id number] [address] [place] [address], [place] [address] Jul, [facility] [address] [id number] [address] [place] [address], [place] [address] Jul, [facility] [address] [id number] [address] [place] [address], [place] [address] Jul, [facility] [address] [id number] [address] [place] [address], [place] [address] Jul, [facility] [address] [id number] [address] [place] [address], [place] [address] Jul, [facility] [address] [id number] [address] [place] [address], [place] [address] Jul, [facility] [address] [id number] [address] [place] [address], [place] [address] May, [facility] [address] [id number] [id number] May, [facility] [address] [id number] [address] [address] May, [facility] [address] [id number] [address] [place] [address] May, [facility] [address] [id number] [address] [place] [phone] May, [facility] [address] [id number] [address] [place] [id number] Apr, [facility] [address] [id number] [place] [id number] Apr, [facility] [address] [id number] [address] [place] [phone] Apr, [facility] [address] [id number] [address] [place] [phone] Mar, [facility] [address] [id number] [place] [id number] Mar, [facility] [address] [id number] [address] [place] [id number] Mar, [facility] [address] [id number] [place] [id number] Feb, [facility] [address] [id number] [address] [place] [id number] Feb, [facility] [address] [id number] [address] [place] [phone] Feb, [facility] [address] [id number] [place] [id number] Feb, [facility] [address] [id number] [place] [id number] Feb, [facility] [address] [id number] [place] [id number] Jan, [facility] [address] [id number] [address] [place] [phone] Jan, [facility] [address] [id number] [place] [id number] Jan, [facility] [address] [id number] [place] [id number] Jan, [facility] [address] [id number] [place] [id number] Jan, [facility] [address] [facility] [id number] [address] [address] Jan, [facility] [address] [facility] [id number] [address] [place] [id number] Jan, [facility] [address] [facility] [id number] [address] [place] [phone] Aug, [facility] [address] [id number] [place] [id number] Aug, [facility] [address] [facility] [id number] [address] [place] [phone] Jul, [facility] [address] [facility] [id number] [address] [place] [id number] Jul, [facility] [address] [facility] [id number] [address] [place] [phone] Jul, [facility] [address] [id number] [place] [id number] Jul, 2011 [facility] [address] [facility] [id number] [address] [place] [id number] Jul, [facility] [address] [id number] [place] [id number] Jul, [facility] [address] [facility] [id number] [address] [place] [id number] Jul, [facility] [address] [id number] [place] [id number] Jul, [facility] [address] [id number] [place] [id number] Jul, [facility] [address] [id number] [place] [id number] Jul, [facility] [address] [facility] [id number] [address] [place] [phone] May, [facility] [address] [id number] [address] [place] [id number] May, [facility] [address] [id number] [address] [place] [phone] May, [facility] [address] [id number] [address] [place] [phone] Apr, [facility] [address] [id number] [address] [place] [id number] Jan, [facility] [address] [id number] [address] [place] [id number] Jan, [facility] [address] [id number] [address] [place] [id number] Dec, [facility] [address] [id number] [address] [place] [id number] Dec, [facility] [address] [id number] [address] [place] [id number] May, [facility] [address] [id number] [address] [place] [id number] Mar, [facility] [address] [id number] [address] [place] [id number] Mar, [facility] [address] [id number] [address] [place] [phone] [id number] Jan, 2009 IMMUNIZATIONS No Known Immunizations [...]
--- OUTSIDE RECORDS SUMMARY | 2020-01-28 13:15 | XMS REPORT ---
Author Author Heydi Candelario Doctor Organization 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 Operator Name Role Phone Migration, Doctor Unavailable Unavailable PROBLEMS Type Condition ICD9-CM Code [id number] Code Onset Dates Condition S tatus SNOMED Code Problem Chronic pain syndrome G89.4 Active 819817516 Problem Sore throat J02.9 Active 28902480 3 Problem Choriocarcinoma C58 Active 1881 67677 Problem [facility] current use of anticoagulant Z79.01 Active 172805118 Problem History of venous thromboembolism V12.51 Active 855701605 Problem Cellulitis of unspecified part of limb L03.119 Active 963019292 Problem Gastroesophageal reflux disease without esophagitis K21.9 Active 659154542 Problem History of pulmonary embolism Z86.711 Active 189249033 Problem Pseudotumor cerebri G93.2 Active 66861073 Problem History of DVT (deep vein thrombosis) Z86.718 Active 136428968 ALLERGIES No Information ENCOUNTERS Encounter Location Date Diagnosis [place] [address] [place] [id number] [address] [place] [address] 14 Nov, 2019 Encounter for screening labo ratory testing for COVID-19 virus Z11.59 [place] [address] [place] [id number] [address] [place] [address] Apr, 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.01 [place] [address] [facility] [id number] [address] [place] [address] Apr, [facility] current use of ant icoagulant Z79.01 [place] [address] [facility] [id number] [address] [place] [address] Apr, Cellulitis of unspecified pa rt of limb L03.119 ; Allergic contact dermatitis due to adhesives L23.1 and Chronic pain syndrome G89.4 [place] [address] [address] Apr, [facility] [address] [address] Apr, [facility] current use of ant icoagulant Z79.01 ; Cellulitis of unspecified part of limb L03.119 ; Chronic pain syndrome G89.4 and Anxiety F41.9 [place] [address] [address] Apr, [facility] [address] [address] Apr, [place] [address] [address] Mar, [place] [address] [address] Mar, [place] [address] [address] Mar, Sore throat J02.9 ; Gastroes ophageal reflux disease without esophagitis K21.9 ; Pseudotumor cerebri G93.2 ; Chronic pain syndrome G89.4 ; Choriocarcinoma C58 ; History of pulmonary embolism Z86.711 ; History of DVT (deep vein thrombosis) Z86.718 ; Anxiety F41.9 and Tachycardia R00.0 [place] [address] [place] [id number] [address] [place] [address] Feb, Anxiety 300.00 and Chronic p ain 338.29 [facility] [address] [place] [id number] [address] [place] [address] Feb, [facility] [address] [address] Feb, [facility] [address] [place] [id number] [address] [place] [address] Jan, 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 manager 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 use of ant icoagulant therapy V58.61 and Dysuria 788.1 [place] [address] [place] [id number] [address] [place] [address] Jan, Dysuria 788.1 [place] [address] [address] Jan, Anxiety 300.00 and Chronic p ain 338.29 [place] [address] [address] Jan, [place] [address] [address] Jan, [place] [address] [address] Jan, [place] [address] [address] Dec, Weakness 780.79 [place] [address] [address] Dec, 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 manager current use of ant icoagulant therapy V58.[address] [address] Dec, Palpitations 785.1 ; Tremor 781.0 ; Weakness 780.79 ; [facility] current use of anticoagulant therapy V58.61 and Yeast vaginitis 112.1 [place] [address] [place] [id number] [address] [place] [address] Dec, [place] [address] [address] Dec, Cervicalgia 723.1 ; Tachycar yoseph 785.0 ; Pseudotumor cerebri 348.2 and History of venous thromboembolism V12.51 [place] [address] [address] Nov, [place] [address] [place] [id number] [address] [place] [address] Nov, [place] [address] [place] [id number] [place] [address] 24 Nov, 2014 Tachycardia 785.0 ; Pseudotu mor cerebri 348.2 ; Anxiety 300.00 and History of venous thromboembolism V12.51 [facility] [address] [id number] [address] [place] [address] 19 Nov, 2014 [facility] [address] [id number] [address] [place] [address] 18 Nov, 2014 [facility] [address] [id number] [address] [place] [address] 16 Nov, 2014 [facility] [address] [id number] [address] [place] [address] Nov, [facility] [address] [facility] [id number] [address] [place] [address] Nov, [facility] [address] [facility] [id number] [address] [place] [address] Nov, [facility] [address] [id number] [address] [place] [address] Nov, [facility] [address] [facility] [id number] [address] [place] [address] October, [facility] [address] [facility] [id number] [address] [place] [address] October, [facility] [address] [facility] [id number] [address] [place] [address] October, Pain in thoracic spine 724.1 and Tachycardia 785.0 [facility] [address] [id number] [address] [place] [address] October, [facility] [address] [facility] [id number] [address] [place] [address] October, [facility] [address] [facility] [id number] [address] [place] [address] 14 Sep, 2014 [facility] [address] [facility] [id number] [address] [place] [address] Sep, [facility] [address] [id number] [address] [place] [address], [place] [address] Aug, [facility] [address] [id number] [address] [place] [address], [place] [address] Aug, [facility] [address] [id number] [address] [place] [address], [place] [address] Aug, [facility] [address] [id number] [address] [place] [address], [place] [address] Aug, [facility] [address] [id number] [address] [place] [address], [place] [address] Aug, [facility] [address] [id number] [address] [place] [address], [place] [address] Aug, [facility] [address] [id number] [address] [place] [address], [place] [address] Aug, [facility] [address] [id number] [address] [place] [address], [place] [address] Aug, [facility] [address] [id number] [address] [place] [address], [place] [address] Aug, [facility] [address] [id number] [address] [place] [address], [place] [address] Aug, [facility] [address] [id number] [address] [place] [address], [place] [address] Aug, [facility] [address] [id number] [address] [place] [address], [place] [address] Aug, [facility] [address] [id number] [address] [place] [address], [place] [address] Jul, [facility] [address] [id number] [address] [place] [address], [place] [address] Jul, [facility] [address] [id number] [address] [place] [address], [place] [address] Jul, [facility] [address] [id number] [address] [place] [address], [place] [address] 23 Jul, 2014 [facility] [address] [id number] [address] [place] [address], [place] [address] 23 Jul, 2014 [facility] [address] [id number] [address] [place] [address], [place] [address] 23 Jul, 2014 [facility] [address] [id number] [address] [place] [address], [place] [address] 23 Jul, 2014 [facility] [address] [id number] [address] [place] [address], [place] [address] 23 Jul, 2014 [facility] [address] [id number] [address] [place] [address], [place] [address] 20 Jul, 2014 [facility] [address] [id number] [address] [place] [address], [place] [address] 20 Jul, 2014 [facility] [address] [id number] [address] [place] [address] 19 Jul, 2014 [facility] [address] [id number] [address] [place] [address], [place] [address] 19 Jul, 2014 [facility] [address] [id number] [address] [place] [address] 17 Jul, 2014 [facility] [address] [id number] [address] [place] [address] 17 Jul, 2014 [facility] [address] [id number] [address] [place] [address] 16 Jul, 2014 [facility] [address] [id number] [address] [place] [address], [place] [address] 16 Jul, 2014 [facility] [address] [id number] [address] [place] [address] 16 Jul, 2014 [facility] [address] [id number] [address] [place] [address] 16 Jul, 2014 [facility] [address] [id number] [address] [place] [address], [place] [address] 13 Jul, 2014 [facility] [address] [id number] [address] [place] [address], [place] [address] Jul, 2014 [facility] [address] [id number] [address] [place] [address], [place] [address] Jul, 2014 [facility] [address] [id number] [address] [place] [address], [place] [address] Jul, 2014 [facility] [address] [id number] [address] [place] [address], [place] [address] Jul, 2014 [facility] [address] [id number] [address] [place] [address], [place] [address] Jul, [facility] [address] [id number] [address] [place] [address], [place] [address] Jul, 2014 [facility] [address] [id number] [address] [place] [address], [place] [address] Jul, [facility] [address] [id number] [address] [place] [address], [place] [address] Jul, [facility] [address] [id number] [address] [place] [address], [place] [address] Jul, [facility] [address] [id number] [address] [place] [address] Jul, [facility] [address] [id number] [address] [place] [address] Jul, [facility] [address] [id number] [address] [place] [address], [place] [address] Jun, [facility] [address] [id number] [address] [place] [address] Jun, [facility] [address] [id number] [address] [place] [address] Jun, [facility] [address] [id number] [address] [place] [address] Jun, [facility] [address] [id number] [address] [place] [address], [place] [address] Jun, [facility] [address] [id number] [address] [place] [address], [place] [address] Jun, [facility] [address] [id number] [address] [place] [address], [place] [address] Jun, [facility] [address] [id number] [address] [place] [address], [place] [address] Jun, [facility] [address] [id number] [address] [place] [address], [place] [address] Jun, [facility] [address] [id number] [address] [place] [address], [place] [address] Jun, [facility] [address] [id number] [address] [place] [address], [place] [address] Jun, [facility] [address] [id number] [address] [place] [address], [place] [address] Jun, [facility] [address] [id number] [address] [place] [address], [place] [address] Jun, [facility] [address] [id number] [address] [place] [address], [place] [address] Jun, [facility] [address] [id number] [address] [place] [address], [place] [address] Jun, [facility] [address] [id number] [address] [place] [address], [place] [address] Jun, [facility] [address] [id number] [address] [place] [address], [place] [address] Jun, [facility] [address] [id number] [address] [place] [address], [place] [address] Jun, [facility] [address] [id number] [address] [place] [address], [place] [address] Jun, [facility] [address] [id number] [address] [place] [address], [place] [address] Jun, [facility] [address] [id number] [address] [place] [address], [place] [address] May, [facility] [address] [id number] [address] [place] [address], [place] [address] May, [facility] [address] [id number] [address] [place] [address], [place] [address] May, [facility] [address] [id number] [address] [place] [address], [place] [address] May, [facility] [address] [id number] [address] [place] [address], [place] [address] May, [facility] [address] [id number] [address] [place] [address], [place] [address] May, [facility] [address] [id number] [address] [place] [address], [place] [address] May, [facility] [address] [id number] [address] [place] [address], [place] [address] May, [facility] [address] [id number] [address] [place] [address], [place] [address] May, [facility] [address] [id number] [address] [place] [address], [place] [address] May, [facility] [address] [id number] [address] [place] [address], [place] [address] May, [facility] [address] [id number] [address] [place] [address], [place] [address] 18 May, 2014 [facility] [address] [id number] [address] [place] [address], [place] [address] 18 May, 2014 [facility] [address] [id number] [address] [place] [address], [place] [address] 17 May, 2014 [facility] [address] [id number] [address] [place] [address], [place] [address] 16 May, 2014 [facility] [address] [id number] [facility] [place] [address] 16 May, 2014 [facility] [address] [id number] [facility] [place] [address] 15 May, 2014 [facility] [address] [id number] [address] [place] [address], [place] [address] 15 May, 2014 [facility] [address] [id number] [address] [place] [address], [place] [address] May, [facility] [address] [id number] [address] [place] [address], [place] [address] May, [facility] [address] [id number] [address] [place] [address], [place] [address] May, [facility] [address] [id number] [address] [place] [address], [place] [address] May, [facility] [address] [id number] [address] [place] [address], [place] [address] May, [facility] [address] [id number] [address] [place] [address], [place] [address] May, [facility] [address] [id number] [address] [place] [address], [place] [address] May, [facility] [address] [id number] [address] [place] [address], [place] [address] May, [facility] [address] [id number] [address] [place] [address], [place] [address] May, [facility] [address] [id number] [address] [place] [address], [place] [address] May, [facility] [address] [id number] [address] [place] [address], [place] [address] May, [facility] [address] [id number] [address] [place] [address], [place] [address] May, [facility] [address] [id number] [address] [place] [address], [place] [address] 05 May, 2014 [facility] [address] [id number] [address] [place] [address], [place] [address] May, [facility] [address] [id number] [address] [place] [address], [place] [address] May, [facility] [address] [id number] [address] [place] [address], [place] [address] May, [facility] [address] [id number] [address] [place] [address], [place] [address] Apr, [facility] [address] [id number] [address] [place] [address], [place] [address] Apr, [facility] [address] [id number] [address] [place] [address], [place] [address] Apr, [facility] [address] [id number] [address] [place] [address], [place] [address] Apr, [facility] [address] [id number] [address] [place] [address], [place] [address] Apr, [facility] [address] [id number] [address] [place] [address], [place] [address] Apr, [facility] [address] [id number] [address] [place] [address], [place] [address] Apr, [facility] [address] [id number] [address] [place] [address], [place] [address] Apr, [facility] [address] [id number] [address] [place] [address], [place] [address] Apr, [facility] [address] [id number] [address] [place] [address], [place] [address] Apr, [facility] [address] [id number] [address] [place] [address], [place] [address] Mar, [facility] [address] [id number] [address] [place] [address], [place] [address] Mar, [facility] [address] [id number] [address] [place] [address], [place] [address] 31 Mar, 2013 [facility] [address] [id number] [address] [place] [address], [place] [address] Mar, 2013 [facility] [address] [id number] [address] [place] [address], [place] [address] 30 Mar, 2014 [facility] [address] [id number] [address] [place] [address], [place] [address] 30 Mar, 2014 [facility] [address] [id number] [address] [place] [address], [place] [address] Mar, [facility] [address] [id number] [address] [place] [address], [place] [address] Mar, [facility] [address] [id number] [address] [place] [address], [place] [address] Mar, [facility] [address] [id number] [address] [place] [address], [place] [address] Mar, [facility] [address] [id number] [address] [place] [address], [place] [address] Mar, [facility] [address] [id number] [address] [place] [address], [place] [address] Mar, [facility] [address] [id number] [address] [place] [address], [place] [address] Mar, [facility] [address] [id number] [address] [place] [address], [place] [address] Mar, [facility] [address] [id number] [address] [place] [address], [place] [address] Mar, [facility] [address] [id number] [address] [place] [address], [place] [address] Mar, [facility] [address] [id number] [address] [place] [address], [place] [address] Mar, [facility] [address] [id number] [address] [place] [address] Mar, [facility] [address] [id number] [address] [place] [address], [place] [address] Mar, [facility] [address] [id number] [address] [place] [address], [place] [address] Mar, [facility] [address] [id number] [address] [place] [address], [place] [address] 05 Sep, 2013 [facility] [address] [id number] [address] [place] [address], [place] [address] 05 Sep, 2013 [facility] [address] [id number] [address] [place] [address], [place] [address] 04 Feb, 2013 [facility] [address] [id number] [address] [place] [address], [place] [address] 04 Feb, 2013 [facility] [address] [id number] [address] [place] [address], [place] [address] Feb, 2013 [facility] [address] [id number] [address] [place] [address], [place] [address] Feb, 2013 [facility] [address] [id number] [address] [place] [address], [place] [address] Feb, 2013 [facility] [address] [id number] [address] [place] [address], [place] [address] Feb, 2013 [facility] [address] [id number] [address] [place] [address], [place] [address] Feb, 2013 [facility] [address] [id number] [address] [place] [address], [place] [address] Feb, 2013 [facility] [address] [id number] [address] [place] [address], [place] [address] Jan, [facility] [address] [id number] [address] [place] [address], [place] [address] Jan, [facility] [address] [id number] [address] [place] [address], [place] [address] Jan, [facility] [address] [id number] [facility] [place] [address] Jan, [facility] [address] [id number] [facility] [place] [address] Jan, [facility] [address] [id number] [facility] [place] [address] Jan, [facility] [address] [id number] [address] [place] [address], [place] [address] Jan, [facility] [address] [id number] [address] [place] [address], [place] [address] Jan, [facility] [address] [id number] [address] [place] [address], [place] [address] Jan, [facility] [address] [id number] [address] [place] [address], [place] [address] Jan, [facility] [address] [id number] [address] [place] [address], [place] [address] Jan, [facility] [address] [id number] [address] [place] [address], [place] [address] Jan, [facility] [address] [id number] [address] [place] [address], [place] [address] Dec, [facility] [address] [id number] [address] [place] [address], [place] [address] Dec, [facility] [address] [id number] [address] [place] [address], [place] [address] Dec, [facility] [address] [id number] [address] [place] [address], [place] [address] Dec, [facility] [address] [id number] [address] [place] [address], [place] [address] Dec, [facility] [address] [id number] [address] [place] [address], [place] [address] Dec, [facility] [facility] [address] [id number] [address] [place] [address], [place] [address] Dec, [facility] [address] [id number] [address] [place] [address], [place] [address] Dec, 2013 [facility] [address] [id number] [address] [place] [address], [place] [address] Dec, [facility] [address] [id number] [address] [place] [address], [place] [address] Dec, [facility] [address] [id number] [address] [place] [address], [place] [address] Dec, [facility] [address] [id number] [address] [place] [address], [place] [address] Dec, [facility] [address] [id number] [address] [place] [address], [place] [address] Nov, [facility] [address] [id number] [address] [place] [address], [place] [address] Nov, [facility] [address] [id number] [address] [place] [address], [place] [address] Nov, [facility] [address] [id number] [address] [place] [address], [place] [address] Nov, [facility] [address] [id number] [address] [place] [address], [place] [address] Nov, [facility] [address] [id number] [address] [place] [address], [place] [address] Nov, [facility] [address] [id number] [address] [place] [address], [place] [address] Nov, [facility] [address] [id number] [address] [place] [address], [place] [address] Nov, [facility] [address] [id number] [address] [place] [address], [place] [address] Nov, [facility] [address] [id number] [address] [place] [address], [place] [address] Nov, [facility] [address] [id number] [address] [place] [address], [place] [address] Nov, [facility] [address] [id number] [address] [place] [address], [place] [address] Nov, [facility] [address] [id number] [address] [place] [address], [place] [address] Nov, [facility] [address] [id number] [address] [place] [address], [place] [address] Nov, [facility] [address] [id number] [address] [place] [address], [place] [address] October, [facility] [address] [id number] [address] [place] [address], [place] [address] October, [facility] [address] [id number] [address] [place] [address], [place] [address] October, [facility] [address] [id number] [address] [place] [address], [place] [address] October, [facility] [address] [id number] [address] [place] [address], [place] [address] October, [facility] [address] [id number] [address] [place] [address], [place] [address] October, [facility] [address] [id number] [address] [place] [address], [place] [address] October, [facility] [address] [id number] [address] [place] [address], [place] [address] October, [facility] [address] [id number] [address] [place] [address], [place] [address] October, [facility] [address] [id number] [address] [place] [address], [place] [address] October, [facility] [address] [id number] [address] [place] [address], [place] [address] October, [facility] [address] [id number] [address] [place] [address], [place] [address] October, [facility] [address] [id number] [facility] [place] [address] Sep, [facility] [address] [id number] [facility] [place] [address] Sep, [facility] [address] [id number] [facility] [place] [address] Sep, [facility] [address] [id number] [address] [place] [address], [place] [address] Sep, [facility] [address] [id number] [address] [place] [address], [place] [address] Sep, [facility] [address] [id number] [address] [place] [address], [place] [address] Sep, [facility] [address] [id number] [address] [place] [address], [place] [address] Aug, [facility] [address] [id number] [address] [place] [address], [place] [address] Aug, [facility] [address] [id number] [address] [place] [address], [place] [address] Aug, [facility] [address] [id number] [address] [place] [address], [place] [address] Aug, [facility] [address] [id number] [address] [place] [address], [place] [address] Aug, [facility] [address] [id number] [address] [place] [address], [place] [address] Aug, [facility] [address] [id number] [address] [place] [address], [place] [address] Jul, [facility] [address] [id number] [address] [place] [address], [place] [address] Jul, [facility] [address] [id number] [address] [place] [address], [place] [address] Jul, [facility] [address] [id number] [address] [place] [address], [place] [address] Jul, [facility] [address] [id number] [address] [place] [address], [place] [address] Jul, [facility] [address] [id number] [address] [place] [address], [place] [address] Jul, [facility] [address] [id number] [address] [place] [address], [place] [address] Jul, [facility] [address] [id number] [address] [place] [address], [place] [address] Jul, [facility] [address] [id number] [address] [place] [address], [place] [address] Jul, [facility] [address] [id number] [address] [place] [address], [place] [address] Jul, [facility] [address] [id number] [address] [place] [address], [place] [address] Jun, [facility] [address] [id number] [address] [place] [address], [place] [address] Jun, [facility] [address] [id number] [address] [place] [address], [place] [address] Jun, [facility] [address] [id number] [address] [place] [address], [place] [address] Jun, [facility] [address] [id number] [address] [place] [address], [place] [address] Jun, [facility] [address] [id number] [address] [place] [address], [place] [address] Jun, [facility] [address] [id number] [address] [place] [address], [place] [address] Jun, [facility] [address] [id number] [address] [place] [address], [place] [address] Jun, [facility] [address] [id number] [address] [place] [address], [place] [address] May, [facility] [address] [id number] [address] [place] [address], [place] [address] May, [facility] [address] [id number] [address] [place] [address], [place] [address] May, [facility] [address] [id number] [address] [place] [address], [place] [address] May, [facility] [address] [id number] [address] [place] [address], [place] [address] May, [facility] [address] [id number] [address] [place] [address], [place] [address] May, [facility] [address] [id number] [address] [place] [address], [place] [address] May, [facility] [address] [id number] [address] [place] [address], [place] [address] May, [facility] [address] [id number] [address] [place] [address], [place] [address] Apr, [facility] [address] [id number] [address] [place] [address], [place] [address] Apr, [facility] [address] [id number] [address] [place] [address], [place] [address] Apr, [facility] [address] [id number] [address] [place] [address], [place] [address] Apr, [facility] [address] [id number] [address] [place] [address], [place] [address] Apr, [facility] [address] [id number] [address] [place] [address], [place] [address] Apr, [facility] [address] [id number] [address] [place] [address], [place] [address] Mar, [facility] [address] [id number] [address] [place] [address], [place] [address] Mar, [facility] [address] [id number] [address] [place] [address], [place] [address] Mar, [facility] [address] [id number] [address] [place] [address], [place] [address] Mar, [facility] [address] [id number] [address] [place] [address], [place] [address] Mar, [facility] [address] [id number] [address] [place] [address], [place] [address] Mar, [facility] [address] [id number] [address] [place] [address], [place] [address] Mar, [facility] [address] [id number] [address] [place] [address], [place] [address] 30 Feb, 2013 [facility] [address] [id number] [address] [place] [address], [place] [address] 30 Feb, 2013 [facility] [address] [id number] [address] [place] [address], [place] [address] Feb, [facility] [address] [id number] [address] [place] [address], [place] [address] Feb, [facility] [address] [id number] [address] [place] [address], [place] [address] Feb, [facility] [address] [id number] [address] [place] [address], [place] [address] Feb, [facility] [address] [id number] [address] [place] [address], [place] [address] Jan, [facility] [address] [id number] [address] [place] [address], [place] [address] Jan, [facility] [address] [id number] [address] [place] [address], [place] [address] Jan, [facility] [address] [id number] [address] [place] [address], [place] [address] Jan, [facility] [address] [id number] [address] [place] [address], [place] [address] Jan, [facility] [address] [id number] [address] [place] [address], [place] [address] Jan, [facility] [address] [id number] [address] [place] [address], [place] [address] Jan, [facility] [address] [id number] [address] [place] [address], [place] [address] Jan, [facility] [address] [id number] [address] [place] [address], [place] [address] Jan, [facility] [address] [id number] [address] [place] [address], [place] [address] Dec, [facility] [address] [id number] [address] [place] [address], [place] [address] Dec, [facility] [address] [id number] [address] [place] [address], [place] [address] Dec, [facility] [address] [id number] [address] [place] [address], [place] [address] Dec, [facility] [address] [id number] [address] [place] [address], [place] [address] Dec, [facility] [address] [id number] [address] [place] [address], [place] [address] Dec, [facility] [address] [id number] [address] [place] [address], [place] [address] Dec, [facility] [address] [id number] [address] [place] [address], [place] [address] Dec, [facility] [address] [id number] [address] [place] [address], [place] [address] Dec, [facility] [address] [id number] [address] [place] [address], [place] [address] Dec, [facility] [address] [id number] [address] [place] [address], [place] [address] Dec, [facility] [address] [id number] [address] [place] [address], [place] [address] Dec, [facility] [address] [id number] [address] [place] [address], [place] [address] Dec, [facility] [address] [id number] [address] [place] [address], [place] [address] Nov, [facility] [address] [id number] [address] [place] [address], [place] [address] Nov, [facility] [address] [id number] [address] [place] [address], [place] [address] Nov, [facility] [address] [id number] [address] [place] [address], [place] [address] Nov, [facility] [address] [id number] [address] [place] [address], [place] [address] October, [facility] [address] [id number] [address] [place] [address], [place] [address] October, [facility] [address] [id number] [address] [place] [address], [place] [address] October, [facility] [address] [id number] [address] [place] [address], [place] [address] October, [facility] [address] [id number] [address] [place] [address], [place] [address] October, [facility] [address] [id number] [address] [place] [address], [place] [address] October, [facility] [address] [id number] [address] [place] [address], [place] [address] Sep, [facility] [address] [id number] [address] [place] [address], [place] [address] Sep, [facility] [address] [id number] [address] [place] [address], [place] [address] Sep, [facility] [address] [id number] [address] [place] [address], [place] [address] Sep, [facility] [address] [id number] [address] [place] [address], [place] [address] 19 Sep, 2012 [facility] [address] [id number] [address] [place] [address], [place] [address] 16 Sep, 2012 [facility] [address] [id number] [address] [place] [address], [place] [address] Sep, [facility] [address] [id number] [address] [place] [address], [place] [address] Sep, [facility] [address] [id number] [address] [place] [address], [place] [address] Sep, [facility] [address] [id number] [address] [place] [address], [place] [address] Sep, [facility] [address] [id number] [address] [place] [address], [place] [address] Sep, [facility] [address] [id number] [address] [place] [address], [place] [address] Aug, [facility] [address] [id number] [address] [place] [address], [place] [address] Aug, [facility] [address] [id number] [address] [place] [address], [place] [address] 25 Aug, 2012 [facility] [address] [id number] [address] [place] [address], [place] [address] Aug, [facility] [address] [id number] [address] [place] [address], [place] [address] 19 Aug, 2012 [facility] [address] [id number] [address] [place] [address], [place] [address] 18 Aug, 2012 [facility] [address] [id number] [address] [place] [address], [place] [address] 17 Aug, 2012 [facility] [address] [id number] [address] [place] [address], [place] [address] 15 Aug, 2012 [facility] [address] [id number] [address] [place] [address], [place] [address] 15 Aug, 2012 [facility] [address] [id number] [address] [place] [address], [place] [address] Aug, [facility] [address] [id number] [address] [place] [address], [place] [address] Aug, [facility] [address] [id number] [address] [place] [address], [place] [address] Aug, [facility] [address] [id number] [address] [place] [address], [place] [address] Jul, [facility] [address] [id number] [address] [place] [address], [place] [address] Jul, [facility] [address] [id number] [address] [place] [address], [place] [address] Jul, [facility] [address] [id number] [address] [place] [address], [place] [address] Jul, [facility] [address] [id number] [address] [place] [address], [place] [address] Jul, [facility] [address] [id number] [address] [place] [address], [place] [address] Jul, [facility] [address] [id number] [address] [place] [address], [place] [address] Jul, [facility] [address] [id number] [address] [place] [address], [place] [address] Jul, [facility] [address] [id number] [address] [place] [address], [place] [address] Jul, [facility] [address] [id number] [address] [place] [address], [place] [address] Jul, [facility] [address] [id number] [address] [place] [address], [place] [address] May, [facility] [address] [id number] [place] [id number] May, [facility] [address] [id number] [address] [address] May, [facility] [address] [id number] [address] [place] [id number] May, [facility] [address] [id number] [address] [place] [id number] May, [facility] [address] [id number] [address] [place] [id number] Apr, [facility] [place] [address] [id number] [place] [id number] Apr, [facility] [address] [id number] [address] [place] [id number] Apr, [facility] [address] [id number] [address] [place] [id number] Mar, [facility] [place] [address] [id number] [place] [id number] Mar, [facility] [address] [id number] [address] [place] [id number] Mar, [facility] [address] [id number] [place] [id number] Feb, [facility] [address] [id number] [address] [place] [id number] Feb, [facility] [address] [id number] [address] [place] [id number] Feb, [facility] [address] [id number] [place] [id number] Feb, [facility] [address] [id number] [place] [id number] Feb, [facility] [place] [address] [id number] [place] [id number] Jan, [facility] [address] [id number] [address] [place] [id number] Jan, [facility] [place] [address] [id number] [place] [id number] Jan, [facility] [place] [address] [id number] [place] [id number] Jan, [facility] [place] [address] [id number] [place] [id number] Jan, [facility] [address] [facility] [id number] [address] [address] Jan, [facility] [address] [facility] [id number] [address] [place] [id number] Jan, [facility] [address] [facility] [id number] [address] [place] [id number] Aug, [facility] [place] [address] [id number] [place] [id number] Aug, [facility] [address] [facility] [id number] [address] [place] [id number] Jul, [facility] [address] [facility] [id number] [address] [place] [id number] Jul, [facility] [address] [facility] [id number] [address] [place] [id number] Jul, [facility] [place] [address] [id number] [place] [id number] Jul, 2011 [facility] [address] [facility] [id number] [address] [place] [id number] Jul, [facility] [address] [id number] [place] [id number] Jul, [facility] [address] [facility] [id number] [address] [place] [id number] Jul, [facility] [address] [id number] [place] [id number] Jul, [facility] [place] [address] [id number] [place] [id number] Jul, [facility] [place] [address] [id number] [place] [id number] Jul, [facility] [address] [facility] [id number] [address] [place] [id number] May, [facility] [address] [id number] [address] [place] [id number] May, [facility] [address] [id number] [address] [place] [id number] May, [facility] [address] [id number] [address] [place] [id number] Apr, [facility] [address] [id number] [address] [place] [id number] Jan, [facility] [address] [id number] [address] [place] [id number] Jan, [facility] [address] [id number] [address] [place] [id number] Dec, [facility] [address] [id number] [address] [place] [id number] Dec, [facility] [address] [id number] [address] [place] [id number] May, [facility] [address] [id number] [address] [place] [id number] Mar, [facility] [address] [id number] [address] [place] [id number] Mar, [facility] [address] [id number] [address] [place] [id number] Jan, IMMUNIZATIONS No Known Immunizations SOCIAL HISTORY Never Assessed REASON FOR VISIT PLAN OF CARE VITAL SIGNS Height 63 in 2013-01-05 Weight 190.8 lbs 2013-01-05 Temperature 98.7 degrees Fahrenheit 2013-01-05 Heart Rate 80 bpm 2013-01-05 Respiratory Rate 18 2013-01-05 Blood pressure systolic 122 mmHg 2013-01-05 Blood pressure diastolic 84 mmHg 2013-01-05 MEDICATIONS Unknown Medications RESULTS No Results PROCEDURES [...]
--- OUTSIDE RECORDS SUMMARY | 2020-01-28 13:15 | XMS REPORT ---
Author Author Heydi Candelario Doctor Organization [facility] Address Unknown Phone Unavailable Care Team Providers Care Fitness Consultant Name Role Phone Migration, Doctor Unavailable Unavailable PROBLEMS Type Condition ICD9-CM Code TPC32-GO Code Onset Dates Condition S tatus SNOMED Code Problem Chronic pain syndrome G89.4 Active 410028558 Problem Sore throat J02.9 Active 92608148 3 Problem Choriocarcinoma C58 Active 1881 32530 Problem FDC current use of anticoagulant Z79.01 Active 268178127 Problem History of venous thromboembolism V12.51 Active 181551451 Problem Cellulitis of unspecified part of limb L03.119 Active 621730105 Problem Gastroesophageal reflux disease without esophagitis K21.9 Active 471951292 Problem History of pulmonary embolism Z86.711 Active 904029041 Problem Pseudotumor cerebri G93.2 Active 97595671 Problem History of DVT (deep vein thrombosis) Z86.718 Active 170346487 ALLERGIES No Information ENCOUNTERS Encounter Location Date Diagnosis [place] [address] [place] [id number] [address] [place] [address] 14 Nov, 2019 Encounter for screening labo ratory testing for COVID-19 virus Z11.59 [place] [address] [place] [id number] [address] [place] [address] Apr, oysterman (current) use of 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 Z79.01 [place] [id number] [place] [id number] [address] [place] [address] Apr, [facility]DC current use of ant icoagulant Z79.01 [place] [address] [id number] [address] [place] [address] Apr, Cellulitis of unspecified pa rt of limb L03.119 ; Allergic contact dermatitis due to adhesives L23.1 and Chronic pain syndrome G89.4 [place] [address] [address] Apr, [facility] [address] [address] Apr, [facility]DC current use of ant icoagulant Z79.01 ; Cellulitis of unspecified part of limb L03.119 ; Chronic pain syndrome G89.4 and Anxiety F41.9 [place] [address] [address] Apr, [facility] [address] [address] Apr, [place] [address] [address] Mar, [place] [address] [address] Mar, [place] [address] [address] Mar, Sore throat J02.9 ; Gastroes ophageal reflux disease without esophagitis K21.9 ; Pseudotumor cerebri G93.2 ; Chronic pain syndrome G89.4 ; Choriocarcinoma C58 ; History of pulmonary embolism Z86.711 ; History of DVT (deep vein thrombosis) Z86.718 ; Anxiety F41.9 and Tachycardia R00.0 [place] [address] [place] [id number] [address] [place] [address] Feb, Anxiety 300.00 and Chronic p ain 338.29 [facility] [address] [place] [id number] [address] [place] [address] Feb, [facility] [address] [address] Feb, [facility] [address] [place] [id number] [address] [place] [address] Jan, oysterman current use of ant icoagulant therapy V58.61 and Dysuria 788.1 [place] [address] [place] [id number] [address] [place] [address] Jan, Dysuria 788.1 [place] [address] [address] Jan, Anxiety 300.00 and Chronic p ain 338.29 [place] [address] [address] Jan, [place] [address] [address] Jan, [place] [address] [address] Jan, [place] [address] [address] Dec, Weakness 780.79 [place] [address] [address] Dec, oysterman current use of ant icoagulant therapy V58.[address] [address] Dec, Palpitations 785.1 ; Tremor 781.0 ; Weakness 780.79 ; [facility]DC current use of anticoagulant therapy V58.61 and Yeast vaginitis 112.1 [place] [address] [place] [id number] [address] [place] [address] Dec, [place] [address] [address] Dec, Cervicalgia 723.1 ; Tachycar yoseph 785.0 ; Pseudotumor cerebri 348.2 and History of venous thromboembolism V12.51 [place] [address] [address] Nov, [place] [address] [place] [id number] [address] [place] [address] Nov, [place] [address] [place] [id number] [place] [address] 24 Nov, 2014 Tachycardia 785.0 ; Pseudotu mor cerebri 348.2 ; Anxiety 300.00 and History of venous thromboembolism V12.51 [facility] [address] [id number] [address] [place] [address] 19 Nov, 2014 [facility] [address] [id number] [address] [place] [address] 18 Nov, 2014 [facility] [address] [id number] [address] [place] [address] 16 Nov, 2014 [facility] [address] [id number] [address] [place] [address] Nov, [facility] [address] [id number] [address] [place] [address] Nov, [facility] [address] [id number] [address] [place] [address] Nov, [facility] [address] [id number] [address] [place] [address] Nov, [facility] [address] [id number] [address] [place] [address] October, [facility] [address] [id number] [address] [place] [address] October, [facility] [address] [id number] [address] [place] [address] October, Pain in thoracic spine 724.1 and Tachycardia 785.0 [facility] [address] [id number] [address] [place] [address] October, [facility] [address] [id number] [address] [place] [address] October, [facility] [address] [id number] [address] [place] [address] 14 Sep, 2014 [facility] [address] [id number] [address] [place] [address] Sep, [facility] [address] [id number] [address] [place] [address], [place] [address] Aug, [facility] [address] [id number] [address] [place] [address], [place] [address] Aug, [facility] [address] [id number] [address] [place] [address], [place] [address] Aug, [facility] [address] [id number] [address] [place] [address], [place] [address] Aug, [facility] [address] [id number] [address] [place] [address], [place] [address] Aug, [facility] [address] [id number] [address] [place] [address], [place] [address] Aug, [facility] [address] [id number] [address] [place] [address], [place] [address] Aug, [facility] [address] [id number] [address] [place] [address], [place] [address] Aug, [facility] [address] [id number] [address] [place] [address], [place] [address] Aug, [facility] [address] [id number] [address] [place] [address], [place] [address] Aug, [facility] [address] [id number] [address] [place] [address], [place] [address] Aug, [facility] [address] [id number] [address] [place] [address], [place] [address] Aug, [facility] [address] [id number] [address] [place] [address], [place] [address] Jul, [facility] [address] [id number] [address] [place] [address], [place] [address] Jul, [facility] [address] [id number] [address] [place] [address], [place] [address] Jul, [facility] [address] [id number] [address] [place] [address], [place] [address] 23 Jul, 2014 [facility] [address] [id number] [address] [place] [address], [place] [address] 23 Jul, 2014 [facility] [address] [id number] [address] [place] [address], [place] [address] 23 Jul, 2014 [facility] [address] [id number] [address] [place] [address], [place] [address] 23 Jul, 2014 [facility] [address] [id number] [address] [place] [address], [place] [address] 23 Jul, 2014 [facility] [address] [id number] [address] [place] [address], [place] [address] 20 Jul, 2014 [facility] [address] [id number] [address] [place] [address], [place] [address] 20 Jul, 2014 [facility] [address] [id number] [address] [place] [address] 19 Jul, 2014 [facility] [address] [id number] [address] [place] [address], [place] [address] 19 Jul, 2014 [facility] [address] [id number] [address] [place] [address] 17 Jul, 2014 [facility] [address] [id number] [address] [place] [address] 17 Jul, 2014 [facility] [address] [id number] [address] [place] [address] 16 Jul, 2014 [facility] [address] [id number] [address] [place] [address], [place] [address] 16 Jul, 2014 [facility] [address] [id number] [address] [place] [address] 16 Jul, 2014 [facility] [address] [id number] [address] [place] [address] 16 Jul, 2014 [facility] [address] [id number] [address] [place] [address], [place] [address] 13 Jul, 2014 [facility] [address] [id number] [address] [place] [address], [place] [address] Jul, 2014 [facility] [address] [id number] [address] [place] [address], [place] [address] Jul, 2014 [facility] [address] [id number] [address] [place] [address], [place] [address] Jul, 2014 [facility] [address] [id number] [address] [place] [address], [place] [address] Jul, 2014 [facility] [address] [id number] [address] [place] [address], [place] [address] Jul, [facility] [address] [id number] [address] [place] [address], [place] [address] Jul, 2014 [facility] [address] [id number] [address] [place] [address], [place] [address] Jul, [facility] [address] [id number] [address] [place] [address], [place] [address] Jul, [facility] [address] [id number] [address] [place] [address], [place] [address] Jul, [facility] [address] [id number] [address] [place] [address] Jul, [facility] [address] [id number] [address] [place] [address] Jul, [facility] [address] [id number] [address] [place] [address], [place] [address] Jun, [facility] [address] [id number] [address] [place] [address] Jun, [facility] [address] [id number] [address] [place] [address] Jun, [facility] [address] [id number] [address] [place] [address] Jun, [facility] [address] [id number] [address] [place] [address], [place] [address] Jun, [facility] [address] [id number] [address] [place] [address], [place] [address] Jun, [facility] [address] [id number] [address] [place] [address], [place] [address] Jun, [facility] [address] [id number] [address] [place] [address], [place] [address] Jun, [facility] [address] [id number] [address] [place] [address], [place] [address] Jun, [facility] [address] [id number] [address] [place] [address], [place] [address] Jun, [facility] [address] [id number] [address] [place] [address], [place] [address] Jun, [facility] [address] [id number] [address] [place] [address], [place] [address] Jun, [facility] [address] [id number] [address] [place] [address], [place] [address] Jun, [facility] [address] [id number] [address] [place] [address], [place] [address] Jun, [facility] [address] [id number] [address] [place] [address], [place] [address] Jun, [facility] [address] [id number] [address] [place] [address], [place] [address] Jun, [facility] [address] [id number] [address] [place] [address], [place] [address] Jun, [facility] [address] [id number] [address] [place] [address], [place] [address] Jun, [facility] [address] [id number] [address] [place] [address], [place] [address] Jun, [facility] [address] [id number] [address] [place] [address], [place] [address] Jun, [facility] [address] [id number] [address] [place] [address], [place] [address] May, [facility] [address] [id number] [address] [place] [address], [place] [address] May, [facility] [address] [id number] [address] [place] [address], [place] [address] May, [facility] [address] [id number] [address] [place] [address], [place] [address] May, [facility] [address] [id number] [address] [place] [address], [place] [address] May, [facility] [address] [id number] [address] [place] [address], [place] [address] May, [facility] [address] [id number] [address] [place] [address], [place] [address] May, [facility] [address] [id number] [address] [place] [address], [place] [address] May, [facility] [address] [id number] [address] [place] [address], [place] [address] May, [facility] [address] [id number] [address] [place] [address], [place] [address] May, [facility] [address] [id number] [address] [place] [address], [place] [address] May, [facility] [address] [id number] [address] [place] [address], [place] [address] 18 May, 2014 [facility] [address] [id number] [address] [place] [address], [place] [address] 18 May, 2014 [facility] [address] [id number] [address] [place] [address], [place] [address] 17 May, 2014 [facility] [address] [id number] [address] [place] [address], [place] [address] 16 May, 2014 [facility] [address] [id number] [facility] [address] 16 May, 2014 [facility] [address] [id number] [facility] [place] [address] 15 May, 2014 [facility] [address] [id number] [address] [place] [address], [place] [address] 15 May, 2014 [facility] [address] [id number] [address] [place] [address], [place] [address] May, [facility] [address] [id number] [address] [place] [address], [place] [address] May, [facility] [address] [id number] [address] [place] [address], [place] [address] May, [facility] [address] [id number] [address] [place] [address], [place] [address] May, [facility] [address] [id number] [address] [place] [address], [place] [address] May, [facility] [address] [id number] [address] [place] [address], [place] [address] May, [facility] [address] [id number] [address] [place] [address], [place] [address] May, [facility] [address] [id number] [address] [place] [address], [place] [address] May, [facility] [address] [id number] [address] [place] [address], [place] [address] May, [facility] [address] [id number] [address] [place] [address], [place] [address] May, [facility] [address] [id number] [address] [place] [address], [place] [address] May, [facility] [address] [id number] [address] [place] [address], [place] [address] May, [facility] [address] [id number] [address] [place] [address], [place] [address] 05 May, 2014 [facility] [address] [id number] [address] [place] [address], [place] [address] May, [facility] [address] [id number] [address] [place] [address], [place] [address] May, [facility] [address] [id number] [address] [place] [address], [place] [address] May, [facility] [address] [id number] [address] [place] [address], [place] [address] Apr, [facility] [address] [id number] [address] [place] [address], [place] [address] Apr, [facility] [address] [id number] [address] [place] [address], [place] [address] Apr, [facility] [address] [id number] [address] [place] [address], [place] [address] Apr, [facility] [address] [id number] [address] [place] [address], [place] [address] Apr, [facility] [address] [id number] [address] [place] [address], [place] [address] Apr, [facility] [address] [id number] [address] [place] [address], [place] [address] Apr, [facility] [address] [id number] [address] [place] [address], [place] [address] Apr, [facility] [address] [id number] [address] [place] [address], [place] [address] Apr, [facility] [address] [id number] [address] [place] [address], [place] [address] Apr, [facility] [address] [id number] [address] [place] [address], [place] [address] Mar, [facility] [address] [id number] [address] [place] [address], [place] [address] Mar, [facility] [address] [id number] [address] [place] [address], [place] [address] 31 Mar, 2013 [facility] [address] [id number] [address] [place] [address], [place] [address] Mar, 2013 [facility] [address] [id number] [address] [place] [address], [place] [address] 30 Mar, 2014 [facility] [address] [id number] [address] [place] [address], [place] [address] 30 Mar, 2014 [facility] [address] [id number] [address] [place] [address], [place] [address] Mar, [facility] [address] [id number] [address] [place] [address], [place] [address] Mar, [facility] [address] [id number] [address] [place] [address], [place] [address] Mar, [facility] [address] [id number] [address] [place] [address], [place] [address] Mar, [facility] [address] [id number] [address] [place] [address], [place] [address] Mar, [facility] [address] [id number] [address] [place] [address], [place] [address] Mar, [facility] [address] [id number] [address] [place] [address], [place] [address] Mar, [facility] [address] [id number] [address] [place] [address], [place] [address] Mar, [facility] [address] [id number] [address] [place] [address], [place] [address] Mar, [facility] [address] [id number] [address] [place] [address], [place] [address] Mar, [facility] [address] [id number] [address] [place] [address], [place] [address] Mar, [facility] [address] [id number] [address] [place] [address] Mar, [facility] [address] [id number] [address] [place] [address], [place] [address] Mar, [facility] [address] [id number] [address] [place] [address], [place] [address] Mar, [facility] [address] [id number] [address] [place] [address], [place] [address] 05 Sep, 2013 [facility] [address] [id number] [address] [place] [address], [place] [address] 05 Sep, 2013 [facility] [address] [id number] [address] [place] [address], [place] [address] 04 Feb, 2013 [facility] [address] [id number] [address] [place] [address], [place] [address] 04 Feb, 2013 [facility] [address] [id number] [address] [place] [address], [place] [address] Feb, 2013 [facility] [address] [id number] [address] [place] [address], [place] [address] Feb, 2013 [facility] [address] [id number] [address] [place] [address], [place] [address] Feb, 2013 [facility] [address] [id number] [address] [place] [address], [place] [address] Feb, 2013 [facility] [address] [id number] [address] [place] [address], [place] [address] Feb, 2013 [facility] [address] [id number] [address] [place] [address], [place] [address] Feb, 2013 [facility] [address] [id number] [address] [place] [address], [place] [address] Jan, [facility] [address] [id number] [address] [place] [address], [place] [address] Jan, [facility] [address] [id number] [address] [place] [address], [place] [address] Jan, [facility] [address] [id number] [facility] [place] [address] Jan, [facility] [address] [id number] [facility] [address] Jan, [facility] [address] [id number] [facility] [place] [address] Jan, [facility] [address] [id number] [address] [place] [address], [place] [address] Jan, [facility] [address] [id number] [address] [place] [address], [place] [address] Jan, [facility] [address] [id number] [address] [place] [address], [place] [address] Jan, [facility] [address] [id number] [address] [place] [address], [place] [address] Jan, [facility] [address] [id number] [address] [place] [address], [place] [address] Jan, [facility] [address] [id number] [address] [place] [address], [place] [address] Jan, [facility] [address] [id number] [address] [place] [address], [place] [address] Dec, [facility] [address] [id number] [address] [place] [address], [place] [address] Dec, [facility] [address] [id number] [address] [place] [address], [place] [address] Dec, [facility] [address] [id number] [address] [place] [address], [place] [address] Dec, [facility] [address] [id number] [address] [place] [address], [place] [address] Dec, [facility] [address] [id number] [address] [place] [address], [place] [address] Dec, [facility] [address] [id number] [address] [place] [address], [place] [address] Dec, [facility] [address] [id number] [address] [place] [address], [place] [address] Dec, 2013 [facility] [address] [id number] 49 [place] [address], [place] [address] Dec, [facility] [address] [id number] [address] [place] [address], [place] [address] Dec, [facility] [address] [id number] [address] [place] [address], [place] [address] Dec, [facility] [address] [id number] [address] [place] [address], [place] [address] Dec, [facility] [address] [id number] [address] [place] [address], [place] [address] Nov, [facility] [address] [id number] [address] [place] [address], [place] [address] Nov, [facility] [address] [id number] [address] [place] [address], [place] [address] Nov, [facility] [address] [id number] [address] [place] [address], [place] [address] Nov, [facility] [address] [id number] [address] [place] [address], [place] [address] Nov, [facility] [address] [id number] [address] [place] [address], [place] [address] Nov, [facility] [address] [id number] [address] [place] [address], [place] [address] Nov, [facility] [address] [id number] [address] [place] [address], [place] [address] Nov, [facility] [address] [id number] [address] [place] [address], [place] [address] Nov, [facility] [address] [id number] [address] [place] [address], [place] [address] Nov, [facility] [address] [id number] [address] [place] [address], [place] [address] Nov, [facility] [address] [id number] [address] [place] [address], [place] [address] Nov, [facility] [address] [id number] [address] [place] [address], [place] [address] Nov, [facility] [address] [id number] [address] [place] [address], [place] [address] Nov, [facility] [address] [id number] [address] [place] [address], [place] [address] October, [facility] [address] [id number] [address] [place] [address], [place] [address] October, [facility] [address] [id number] [address] [place] [address], [place] [address] October, [facility] [address] [id number] [address] [place] [address], [place] [address] October, [facility] [address] [id number] [address] [place] [address], [place] [address] October, [facility] [address] [id number] [address] [place] [address], [place] [address] October, [facility] [address] [id number] [address] [place] [address], [place] [address] October, [facility] [address] [id number] [address] [place] [address], [place] [address] October, [facility] [address] [id number] [address] [place] [address], [place] [address] October, [facility] [address] [id number] [address] [place] [address], [place] [address] October, [facility] [address] [id number] [address] [place] [address], [place] [address] October, [facility] [address] [id number] [address] [place] [address], [place] [address] October, [facility] [address] [id number] [facility] [place] [address] Sep, [facility] [address] [id number] [facility] [place] [address] Sep, [facility] [address] [id number] [facility] [address] Sep, [facility] [address] [id number] [address] [place] [address], [place] [address] Sep, [facility] [address] [id number] [address] [place] [address], [place] [address] Sep, [facility] [address] [id number] [address] [place] [address], [place] [address] Sep, [facility] [address] [id number] [address] [place] [address], [place] [address] Aug, [facility] [address] [id number] [address] [place] [address], [place] [address] Aug, [facility] [address] [id number] [address] [place] [address], [place] [address] Aug, [facility] [address] [id number] [address] [place] [address], [place] [address] Aug, [facility] [address] [id number] [address] [place] [address], [place] [address] Aug, [facility] [address] [id number] [address] [place] [address], [place] [address] Aug, [facility] [address] [id number] [address] [place] [address], [place] [address] Jul, [facility] [address] [id number] [address] [place] [address], [place] [address] Jul, [facility] [address] [id number] [address] [place] [address], [place] [address] Jul, [facility] [address] [id number] [address] [place] [address], [place] [address] Jul, [facility] [address] [id number] [address] [place] [address], [place] [address] Jul, [facility] [address] [id number] [address] [place] [address], [place] [address] Jul, [facility] [address] [id number] [address] [place] [address], [place] [address] Jul, [facility] [address] [id number] [address] [place] [address], [place] [address] Jul, [facility] [address] [id number] [address] [place] [address], [place] [address] Jul, [facility] [address] [id number] [address] [place] [address], [place] [address] Jul, [facility] [address] [id number] [address] [place] [address], [place] [address] Jun, [facility] [address] [id number] [address] [place] [address], [place] [address] Jun, [facility] [address] [id number] [address] [place] [address], [place] [address] Jun, [facility] [address] [id number] [address] [place] [address], [place] [address] Jun, [facility] [address] [id number] [address] [place] [address], [place] [address] Jun, [facility] [address] [id number] [address] [place] [address], [place] [address] Jun, [facility] [address] [id number] [address] [place] [address], [place] [address] Jun, [facility] [address] [id number] [address] [place] [address], [place] [address] Jun, [facility] [address] [id number] [address] [place] [address], [place] [address] May, [facility] [address] [id number] [address] [place] [address], [place] [address] May, [facility] [address] [id number] [address] [place] [address], [place] [address] May, [facility] [address] [id number] [address] [place] [address], [place] [address] May, [facility] [address] [id number] [address] [place] [address], [place] [address] May, [facility] [address] [id number] [address] [place] [address], [place] [address] May, [facility] [address] [id number] [address] [place] [address], [place] [address] May, [facility] [address] [id number] [address] [place] [address], [place] [address] May, [facility] [address] [id number] [address] [place] [address], [place] [address] Apr, [facility] [address] [id number] [address] [place] [address], [place] [address] Apr, [facility] [address] [id number] [address] [place] [address], [place] [address] Apr, [facility] [address] [id number] [address] [place] [address], [place] [address] Apr, [facility] [address] [id number] [address] [place] [address], [place] [address] Apr, [facility] [address] [id number] [address] [place] [address], [place] [address] Apr, [facility] [address] [id number] [address] [place] [address], [place] [address] Mar, [facility] [address] [id number] [address] [place] [address], [place] [address] Mar, [facility] [address] [id number] [address] [place] [address], [place] [address] Mar, [facility] [address] [id number] [address] [place] [address], [place] [address] Mar, [facility] [address] [id number] [address] [place] [address], [place] [address] Mar, [facility] [address] [id number] [address] [place] [address], [place] [address] Mar, [facility] [address] [id number] [address] [place] [address], [place] [address] Mar, [facility] [address] [id number] [address] [place] [address], [place] [address] 30 Feb, 2013 [facility] [address] [id number] [address] [place] [address], [place] [address] 30 Feb, 2013 [facility] [address] [id number] [address] [place] [address], [place] [address] Feb, [facility] [address] [id number] [address] [place] [address], [place] [address] Feb, [facility] [address] [id number] [address] [place] [address], [place] [address] Feb, [facility] [address] [id number] [address] [place] [address], [place] [address] Feb, [facility] [address] [id number] [address] [place] [address], [place] [address] Jan, [facility] [address] [id number] [address] [place] [address], [place] [address] Jan, [facility] [address] [id number] [address] [place] [address], [place] [address] Jan, [facility] [address] [id number] [address] [place] [address], [place] [address] Jan, [facility] [address] [id number] [address] [place] [address], [place] [address] Jan, [facility] [address] [id number] [address] [place] [address], [place] [address] Jan, [facility] [address] [id number] [address] [place] [address], [place] [address] Jan, [facility] [address] [id number] [address] [place] [address], [place] [address] Jan, [facility] [address] [id number] [address] [place] [address], [place] [address] Jan, [facility] [address] [id number] [address] [place] [address], [place] [address] Dec, [facility] [address] [id number] [address] [place] [address], [place] [address] Dec, [facility] [address] [id number] [address] [place] [address], [place] [address] Dec, [facility] [address] [id number] [address] [place] [address], [place] [address] Dec, [facility] [address] [id number] [address] [place] [address], [place] [address] Dec, [facility] [address] [id number] [address] [place] [address], [place] [address] Dec, [facility] [address] [id number] [address] [place] [address], [place] [address] Dec, [facility] [address] [id number] [address] [place] [address], [place] [address] Dec, [facility] [address] [id number] [address] [place] [address], [place] [address] Dec, [facility] [address] [id number] [address] [place] [address], [place] [address] Dec, [facility] [address] [id number] [address] [place] [address], [place] [address] Dec, [facility] [address] [id number] [address] [place] [address], [place] [address] Dec, [facility] [address] [id number] [address] [place] [address], [place] [address] Dec, [facility] [address] [id number] [address] [place] [address], [place] [address] Nov, [facility] [address] [id number] [address] [place] [address], [place] [address] Nov, [facility] [address] [id number] [address] [place] [address], [place] [address] Nov, [facility] [address] [id number] [address] [place] [address], [place] [address] Nov, [facility] [address] [id number] [address] [place] [address], [place] [address] October, [facility] [address] [id number] [address] [place] [address], [place] [address] October, [facility] [address] [id number] [address] [place] [address], [place] [address] October, [facility] [address] [id number] [address] [place] [address], [place] [address] October, [facility] [address] [id number] [address] [place] [address], [place] [address] October, [facility] [address] [id number] [address] [place] [address], [place] [address] October, [facility] [address] [id number] [address] [place] [address], [place] [address] Sep, [facility] [address] [id number] [address] [place] [address], [place] [address] Sep, [facility] [address] [id number] [address] [place] [address], [place] [address] Sep, [facility] [address] [id number] [address] [place] [address], [place] [address] Sep, [facility] [address] [id number] [address] [place] [address], [place] [address] 19 Sep, 2012 [facility] [address] [id number] [address] [place] [address], [place] [address] 16 Sep, 2012 [facility] [address] [id number] [address] [place] [address], [place] [address] Sep, [facility] [address] [id number] [address] [place] [address], [place] [address] Sep, [facility] [address] [id number] [address] [place] [address], [place] [address] Sep, [facility] [address] [id number] [address] [place] [address], [place] [address] Sep, [facility] [address] [id number] [address] [place] [address], [place] [address] Sep, [facility] [address] [id number] [address] [place] [address], [place] [address] Aug, [facility] [address] [id number] [address] [place] [address], [place] [address] Aug, [facility] [address] [id number] [address] [place] [address], [place] [address] 25 Aug, 2012 [facility] [address] [id number] [address] [place] [address], [place] [address] Aug, [facility] [address] [id number] [address] [place] [address], [place] [address] 19 Aug, 2012 [facility] [address] [id number] [address] [place] [address], [place] [address] 18 Aug, 2012 [facility] [address] [id number] [address] [place] [address], [place] [address] 17 Aug, 2012 [facility] [address] [id number] [address] [place] [address], [place] [address] 15 Aug, 2012 [facility] [address] [id number] [address] [place] [address], [place] [address] 15 Aug, 2012 [facility] [address] [id number] [address] [place] [address], [place] [address] Aug, [facility] [address] [id number] [address] [place] [address], [place] [address] Aug, [facility] [address] [id number] [address] [place] [address], [place] [address] Aug, [facility] [address] [id number] [address] [place] [address], [place] [address] Jul, [facility] [address] [id number] [address] [place] [address], [place] [address] Jul, [facility] [address] [id number] [address] [place] [address], [place] [address] Jul, [facility] [address] [id number] [address] [place] [address], [place] [address] Jul, [facility] [address] [id number] [address] [place] [address], [place] [address] Jul, [facility] [address] [id number] [address] [place] [address], [place] [address] Jul, [facility] [address] [id number] [address] [place] [address], [place] [address] Jul, [facility] [address] [id number] [address] [place] [address], [place] [address] Jul, [facility] [address] [id number] [address] [place] [address], [place] [address] Jul, [facility] [address] [id number] [address] [place] [address], [place] [address] Jul, [facility] [address] [id number] [address] [place] [address], [place] [address] May, [facility] [address] [id number] [place] [id number] May, [facility] [address] [id number] [address] [address] May, [facility] [address] [id number] [address] [place] [address] May, [facility] [address] [id number] [address] [place] [address] May, [facility] [address] [id number] [address] [place] [address] Apr, [facility] [address] [id number] [place] [id number] Apr, [facility] [address] [id number] [address] [place] [id number] Apr, [facility] [address] [id number] [address] [place] [id number] Mar, [facility] [address] [id number] [place] [id number] Mar, [facility] [address] [id number] [address] [place] [id number] Mar, [facility] [address] [id number] [place] [id number] Feb, [facility] [address] [id number] [address] [place] [id number] Feb, [facility] [address] [id number] [address] [place] [id number] Feb, [facility] [address] [id number] [place] [id number] Feb, [facility] [address] [id number] [place] [id number] Feb, [facility] [address] [id number] [place] [id number] Jan, [facility] [address] [id number] [address] [place] [id number] Jan, [facility] [address] [id number] [place] [id number] Jan, [facility] [address] [id number] [place] [id number] Jan, [facility] [address] [id number] [place] [id number] Jan, [facility] [address] [id number] [place] [address] Jan, [facility] [address] [id number] [address] [place] [id number] Jan, [facility] [address] [id number] [address] [place] [id number] Aug, [facility] [address] [id number] [place] [id number] Aug, [facility] [address] [id number] [address] [place] [id number] Jul, [facility] [address] [id number] [address] [place] [id number] Jul, [facility] [address] [id number] [address] [place] [id number] Jul, [facility] [address] [id number] [place] [id number] Jul, 2011 [facility] [address] [id number] [address] [place] [id number] Jul, [facility] [address] [id number] [place] [id number] Jul, [facility] [address] [id number] [address] [place] [id number] Jul, [facility] [address] [id number] [place] [id number] Jul, [facility] [address] [id number] [place] [id number] Jul, [facility] [address] [id number] [place] [id number] Jul, [facility] [address] [id number] [address] [place] [id number] May, [facility] [address] [id number] [address] [place] [id number] May, [facility] [address] [id number] [address] [place] [id number] May, [facility] [address] [id number] [address] [place] [id number] Apr, [facility] [address] [id number] [address] [place] [id number] Jan, [facility] [address] [id number] [address] [place] [id number] Jan, [facility] [address] [id number] [address] [place] [id number] Dec, [facility] [address] [id number] [address] [place] [id number] Dec, [facility] [address] [id number] [address] [place] [id number] May, [facility] [address] [id number] [address] [place] [id number] Mar, [facility] [address] [id number] [address] [place] [id number] Mar, [facility] [address] [id number] [address] [place] [id number] 14 Jan, 2009 IMMUNIZATIONS No Known Immunizations [...]
--- OUTSIDE RECORDS SUMMARY | 2020-01-28 13:15 | XMS REPORT ---
Author Author Heydi Candelario Doctor Organization [facility] Address Unknown Phone Unavailable Care Team Providers Care Technical Asst Name Role Phone Migration, Doctor Unavailable Unavailable PROBLEMS Type Condition ICD9-CM Code AEE26-PE Code Onset Dates Condition S tatus SNOMED Code Problem Chronic pain syndrome G89.4 Active 951969773 Problem Sore throat J02.9 Active 72376511 3 Problem Choriocarcinoma C58 Active 1881 63328 Problem care home current use of anticoagulant Z79.01 Active 628050608 Problem History of venous thromboembolism V12.51 Active 470347661 Problem Cellulitis of unspecified part of limb L03.119 Active 314024912 Problem Gastroesophageal reflux disease without esophagitis K21.9 Active 115285004 Problem History of pulmonary embolism Z86.711 Active 066512428 Problem Pseudotumor cerebri G93.2 Active 21400879 Problem History of DVT (deep vein thrombosis) Z86.718 Active 623638163 ALLERGIES No Information ENCOUNTERS Encounter Location Date Diagnosis [place] [address] [place] [id number] [address] [place] [address] 14 Nov, 2019 Encounter for screening labo ratory testing for COVID-19 virus Z11.59 [place] [address] [place] [id number] [address] [place] [address] 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 [id number] [address] [place] [address] Apr, care home current use of ant icoagulant Z79.01 [place] [address] [facility] [id number] [address] [place] [address] Apr, Cellulitis of unspecified pa rt of limb L03.119 ; Allergic contact dermatitis due to adhesives L23.1 and Chronic pain syndrome G89.4 [place] [address] [address] Apr, [facility] [address] [address] Apr, care home current use of ant icoagulant Z79.01 ; Cellulitis of unspecified part of limb L03.119 ; Chronic pain syndrome G89.4 and Anxiety F41.9 [place] [address] [address] Apr, [facility] [address] [address] Apr, [place] [address] [address] Mar, [place] [address] [address] Mar, [place] [address] [address] Mar, Sore throat J02.9 ; Gastroes ophageal reflux disease without esophagitis K21.9 ; Pseudotumor cerebri G93.2 ; Chronic pain syndrome G89.4 ; Choriocarcinoma C58 ; History of pulmonary embolism Z86.711 ; History of DVT (deep vein thrombosis) Z86.718 ; Anxiety F41.9 and Tachycardia R00.0 [place] [address] [place] [id number] [address] [place] [address] Feb, Anxiety 300.00 and Chronic p ain 338.29 [facility] [address] [place] [id number] [address] [place] [address] Feb, [facility] [address] [address] Feb, [facility] [address] [place] [id number] [address] [place] [address] 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, 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.61 and Dysuria 788.1 [place] [address] [place] [id number] [address] [place] [address] Jan, Dysuria 788.1 [place] [address] [address] Jan, Anxiety 300.00 and Chronic p ain 338.29 [place] [address] [address] Jan, [place] [address] [address] Jan, [place] [address] [address] Jan, [place] [address] [address] Dec, Weakness 780.79 [place] [address] [address] Dec, 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.[address] [address] Dec, Palpitations 785.1 ; Tremor 781.0 ; Weakness 780.79 ; care home current use of anticoagulant therapy V58.61 and Yeast vaginitis 112.1 [place] [address] [place] [id number] [address] [place] [address] Dec, [place] [address] [address] Dec, Cervicalgia 723.1 ; Tachycar yoseph 785.0 ; Pseudotumor cerebri 348.2 and History of venous thromboembolism V12.51 [place] [address] [address] Nov, [place] [address] [place] [id number] [address] [place] [address] Nov, [place] [address] [place] [id number] [place] [address] 24 Nov, 2014 Tachycardia 785.0 ; Pseudotu mor cerebri 348.2 ; Anxiety 300.00 and History of venous thromboembolism V12.51 [facility] [address] [id number] [address] [place] [address] 19 Nov, 2014 [facility] [address] [id number] [address] [place] [address] 18 Nov, 2014 [facility] [address] [id number] [address] [place] [address] 16 Nov, 2014 [facility] [address] [id number] [address] [place] [address] Nov, [facility] [address] [facility] [id number] [address] [place] [address] Nov, [facility] [address] [facility] [id number] [address] [place] [address] Nov, [facility] [address] [id number] [address] [place] [address] Nov, [facility] [address] [facility] [id number] [address] [place] [address] October, [facility] [address] [facility] [id number] [address] [place] [address] October, [facility] [address] [facility] [id number] [address] [place] [address] October, Pain in thoracic spine 724.1 and Tachycardia 785.0 [facility] [address] [id number] [address] [place] [address] October, [facility] [address] [facility] [id number] [address] [place] [address] October, [facility] [address] [facility] [id number] [address] [place] [address] 14 Sep, 2014 [facility] [address] [facility] [id number] [address] [place] [address] Sep, [facility] [address] [id number] [address] [place] [address], [place] [address] Aug, [facility] [address] [id number] [address] [place] [address], [place] [address] Aug, [facility] [address] [id number] [address] [place] [address], [place] [address] Aug, [facility] [address] [id number] [address] [place] [address], [place] [address] Aug, [facility] [address] [id number] [address] [place] [address], [place] [address] Aug, [facility] [address] [id number] [address] [place] [address], [place] [address] Aug, [facility] [address] [id number] [address] [place] [address], [place] [address] Aug, [facility] [address] [id number] [address] [place] [address], [place] [address] Aug, [facility] [address] [id number] [address] [place] [address], [place] [address] Aug, [facility] [address] [id number] [address] [place] [address], [place] [address] Aug, [facility] [address] [id number] [address] [place] [address], [place] [address] Aug, [facility] [address] [id number] [address] [place] [address], [place] [address] Aug, [facility] [address] [id number] [address] [place] [address], [place] [address] Jul, [facility] [address] [id number] [address] [place] [address], [place] [address] Jul, [facility] [address] [id number] [address] [place] [address], [place] [address] Jul, [facility] [address] [id number] [address] [place] [address], [place] [address] 23 Jul, 2014 [facility] [address] [id number] [address] [place] [address], [place] [address] 23 Jul, 2014 [facility] [address] [id number] [address] [place] [address], [place] [address] 23 Jul, 2014 [facility] [address] [id number] [address] [place] [address], [place] [address] 23 Jul, 2014 [facility] [address] [id number] [address] [place] [address], [place] [address] 23 Jul, 2014 [facility] [address] [id number] [address] [place] [address], [place] [address] 20 Jul, 2014 [facility] [address] [id number] [address] [place] [address], [place] [address] 20 Jul, 2014 [facility] [address] [id number] [address] [place] [address] 19 Jul, 2014 [facility] [address] [id number] [address] [place] [address], [place] [address] 19 Jul, 2014 [facility] [address] [id number] [address] [place] [address] 17 Jul, 2014 [facility] [address] [id number] [address] [place] [address] 17 Jul, 2014 [facility] [address] [id number] [address] [place] [address] 16 Jul, 2014 [facility] [address] [id number] [address] [place] [address], [place] [address] 16 Jul, 2014 [facility] [address] [id number] [address] [place] [address] 16 Jul, 2014 [facility] [address] [id number] [address] [place] [address] 16 Jul, 2014 [facility] [address] [id number] [address] [place] [address], [place] [address] 13 Jul, 2014 [facility] [address] [id number] [address] [place] [address], [place] [address] Jul, 2014 [facility] [address] [id number] [address] [place] [address], [place] [address] Jul, 2014 [facility] [address] [id number] [address] [place] [address], [place] [address] Jul, 2014 [facility] [address] [id number] [address] [place] [address], [place] [address] Jul, 2014 [facility] [address] [id number] [address] [place] [address], [place] [address] Jul, [facility] [address] [id number] [address] [place] [address], [place] [address] Jul, 2014 [facility] [address] [id number] [address] [place] [address], [place] [address] Jul, [facility] [address] [id number] [address] [place] [address], [place] [address] Jul, [facility] [address] [id number] [address] [place] [address], [place] [address] Jul, [facility] [address] [id number] [address] [place] [address] Jul, [facility] [address] [id number] [address] [place] [address] Jul, [facility] [address] [id number] [address] [place] [address], [place] [address] Jun, [facility] [address] [id number] [address] [place] [address] Jun, [facility] [address] [id number] [address] [place] [address] Jun, [facility] [address] [id number] [address] [place] [address] Jun, [facility] [address] [id number] [address] [place] [address], [place] [address] Jun, [facility] [address] [id number] [address] [place] [address], [place] [address] Jun, [facility] [address] [id number] [address] [place] [address], [place] [address] Jun, [facility] [address] [id number] [address] [place] [address], [place] [address] Jun, [facility] [address] [id number] [address] [place] [address], [place] [address] Jun, [facility] [address] [id number] [address] [place] [address], [place] [address] Jun, [facility] [address] [id number] [address] [place] [address], [place] [address] Jun, [facility] [address] [id number] [address] [place] [address], [place] [address] Jun, [facility] [address] [id number] [address] [place] [address], [place] [address] Jun, [facility] [address] [id number] [address] [place] [address], [place] [address] Jun, [facility] [address] [id number] [address] [place] [address], [place] [address] Jun, [facility] [address] [id number] [address] [place] [address], [place] [address] Jun, [facility] [address] [id number] [address] [place] [address], [place] [address] Jun, [facility] [address] [id number] [address] [place] [address], [place] [address] Jun, [facility] [address] [id number] [address] [place] [address], [place] [address] Jun, [facility] [address] [id number] [address] [place] [address], [place] [address] Jun, [facility] [address] [id number] [address] [place] [address], [place] [address] May, [facility] [address] [id number] [address] [place] [address], [place] [address] May, [facility] [address] [id number] [address] [place] [address], [place] [address] May, [facility] [address] [id number] [address] [place] [address], [place] [address] May, [facility] [address] [id number] [address] [place] [address], [place] [address] May, [facility] [address] [id number] [address] [place] [address], [place] [address] May, [facility] [address] [id number] [address] [place] [address], [place] [address] May, [facility] [address] [id number] [address] [place] [address], [place] [address] May, [facility] [address] [id number] [address] [place] [address], [place] [address] May, [facility] [address] [id number] [address] [place] [address], [place] [address] May, [facility] [address] [id number] [address] [place] [address], [place] [address] May, [facility] [address] [id number] [address] [place] [address], [place] [address] 18 May, 2014 [facility] [address] [id number] [address] [place] [address], [place] [address] 18 May, 2014 [facility] [address] [id number] [address] [place] [address], [place] [address] 17 May, 2014 [facility] [address] [id number] [address] [place] [address], [place] [address] 16 May, 2014 [facility] [address] [id number] [facility] [place] [address] 16 May, 2014 [facility] [address] [id number] [facility] [place] [address] 15 May, 2014 [facility] [address] [id number] [address] [place] [address], [place] [address] 15 May, 2014 [facility] [address] [id number] [address] [place] [address], [place] [address] May, [facility] [address] [id number] [address] [place] [address], [place] [address] May, [facility] [address] [id number] [address] [place] [address], [place] [address] May, [facility] [address] [id number] [address] [place] [address], [place] [address] May, [facility] [address] [id number] [address] [place] [address], [place] [address] May, [facility] [address] [id number] [address] [place] [address], [place] [address] May, [facility] [address] [id number] [address] [place] [address], [place] [address] May, [facility] [address] [id number] [address] [place] [address], [place] [address] May, [facility] [address] [id number] [address] [place] [address], [place] [address] May, [facility] [address] [id number] [address] [place] [address], [place] [address] May, [facility] [address] [id number] [address] [place] [address], [place] [address] May, [facility] [address] [id number] [address] [place] [address], [place] [address] May, [facility] [address] [id number] [address] [place] [address], [place] [address] 05 May, 2014 [facility] [address] [id number] [address] [place] [address], [place] [address] May, [facility] [address] [id number] [address] [place] [address], [place] [address] May, [facility] [address] [id number] [address] [place] [address], [place] [address] May, [facility] [address] [id number] [address] [place] [address], [place] [address] Apr, [facility] [address] [id number] [address] [place] [address], [place] [address] Apr, [facility] [address] [id number] [address] [place] [address], [place] [address] Apr, [facility] [address] [id number] [address] [place] [address], [place] [address] Apr, [facility] [address] [id number] [address] [place] [address], [place] [address] Apr, [facility] [address] [id number] [address] [place] [address], [place] [address] Apr, [facility] [address] [id number] [address] [place] [address], [place] [address] Apr, [facility] [address] [id number] [address] [place] [address], [place] [address] Apr, [facility] [address] [id number] [address] [place] [address], [place] [address] Apr, [facility] [address] [id number] [address] [place] [address], [place] [address] Apr, [facility] [address] [id number] [address] [place] [address], [place] [address] Mar, [facility] [address] [id number] [address] [place] [address], [place] [address] Mar, [facility] [address] [id number] [address] [place] [address], [place] [address] 31 Mar, 2013 [facility] [address] [id number] [address] [place] [address], [place] [address] Mar, 2013 [facility] [address] [id number] [address] [place] [address], [place] [address] 30 Mar, 2014 [facility] [address] [id number] [address] [place] [address], [place] [address] 30 Mar, 2014 [facility] [address] [id number] [address] [place] [address], [place] [address] Mar, [facility] [address] [id number] [address] [place] [address], [place] [address] Mar, [facility] [address] [id number] [address] [place] [address], [place] [address] Mar, [facility] [address] [id number] [address] [place] [address], [place] [address] Mar, [facility] [address] [id number] [address] [place] [address], [place] [address] Mar, [facility] [address] [id number] [address] [place] [address], [place] [address] Mar, [facility] [address] [id number] [address] [place] [address], [place] [address] Mar, [facility] [address] [id number] [address] [place] [address], [place] [address] Mar, [facility] [address] [id number] [address] [place] [address], [place] [address] Mar, [facility] [address] [id number] [address] [place] [address], [place] [address] Mar, [facility] [address] [id number] [address] [place] [address], [place] [address] Mar, [facility] [address] [id number] [address] [place] [id number] Mar, [facility] [address] [id number] [address] [place] [address], [place] [address] Mar, [facility] [address] [id number] [address] [place] [address], [place] [address] Mar, [facility] [address] [id number] [address] [place] [address], [place] [id number] 05 Sep, 2013 [facility] [address] [id number] [address] [place] [address], [place] [address] 05 Sep, 2013 [facility] [address] [id number] [address] [place] [address], [place] [address] 04 Feb, 2013 [facility] [address] [id number] [address] [place] [address], [place] [address] 04 Feb, 2013 [facility] [address] [id number] [address] [place] [address], [place] [address] Feb, 2013 [facility] [address] [id number] [address] [place] [address], [place] [address] Feb, 2013 [facility] [address] [id number] [address] [place] [address], [place] [address] Feb, 2013 [facility] [address] [id number] [address] [place] [address], [place] [address] Feb, 2013 [facility] [address] [id number] [address] [place] [address], [place] [address] Feb, 2013 [facility] [address] [id number] [address] [place] [address], [place] [address] Feb, 2013 [facility] [address] [id number] [address] [place] [address], [place] [address] Jan, [facility] [address] [id number] [address] [place] [address], [place] [address] Jan, [facility] [address] [id number] [address] [place] [address], [place] [address] Jan, [facility] [address] [id number] [facility] [place] [address] Jan, [facility] [address] [id number] [facility] [place] [address] Jan, [facility] [address] [id number] [facility] [place] [address] Jan, [facility] [address] [id number] [address] [place] [address], [place] [address] Jan, [facility] [address] [id number] [address] [place] [address], [place] [address] Jan, [facility] [address] [id number] [address] [place] [address], [place] [address] Jan, [facility] [address] [id number] [address] [place] [address], [place] [address] Jan, [facility] [address] [id number] [address] [place] [address], [place] [address] Jan, [facility] [address] [id number] [address] [place] [address], [place] [address] Jan, [facility] [address] [id number] [address] [place] [address], [place] [address] Dec, [facility] [address] [id number] [address] [place] [address], [place] [address] Dec, [facility] [address] [id number] [address] [place] [address], [place] [address] Dec, [facility] [address] [id number] [address] [place] [address], [place] [address] Dec, [facility] [address] [id number] [address] [place] [address], [place] [address] Dec, [facility] [address] [id number] [address] [place] [address], [place] [address] Dec, [facility] [address] [id number] [address] [place] [address], [place] [address] Dec, [facility] [address] [id number] [address] [place] [address], [place] [address] Dec, 2013 [facility] [address] [id number] [address] [place] [address], [place] [address] Dec, [facility] [address] [id number] [address] [place] [address], [place] [address] Dec, [facility] [address] [id number] [address] [place] [address], [place] [address] Dec, [facility] [address] [id number] [address] [place] [address], [place] [address] Dec, [facility] [address] [id number] [address] [place] [address], [place] [address] Nov, [facility] [address] [id number] [address] [place] [address], [place] [address] Nov, [facility] [address] [id number] [address] [place] [address], [place] [address] Nov, [facility] [address] [id number] [address] [place] [address], [place] [address] Nov, [facility] [address] [id number] [address] [place] [address], [place] [address] Nov, [facility] [address] [id number] [address] [place] [address], [place] [address] Nov, [facility] [address] [id number] [address] [place] [address], [place] [address] Nov, [facility] [address] [id number] [address] [place] [address], [place] [address] Nov, [facility] [address] [id number] [address] [place] [address], [place] [address] Nov, [facility] [address] [id number] [address] [place] [address], [place] [address] Nov, [facility] [address] [id number] [address] [place] [address], [place] [address] Nov, [facility] [address] [id number] [address] [place] [address], [place] [address] Nov, [facility] [address] [id number] [address] [place] [address], [place] [address] Nov, [facility] [address] [id number] [address] [place] [address], [place] [address] Nov, [facility] [address] [id number] [address] [place] [address], [place] [address] October, [facility] [address] [id number] [address] [place] [address], [place] [address] October, [facility] [address] [id number] [address] [place] [address], [place] [address] October, [facility] [address] [id number] [address] [place] [address], [place] [address] October, [facility] [address] [id number] [address] [place] [address], [place] [address] October, [facility] [address] [id number] [address] [place] [address], [place] [address] October, [facility] [address] [id number] [address] [place] [address], [place] [address] October, [facility] [address] [id number] [address] [place] [address], [place] [address] October, [facility] [address] [id number] [address] [place] [address], [place] [address] October, [facility] [address] [id number] [address] [place] [address], [place] [address] October, [facility] [address] [id number] [address] [place] [address], [place] [address] October, [facility] [address] [id number] [address] [place] [address], [place] [address] October, [facility] [address] [id number] [facility] [place] [address] Sep, [facility] [address] [id number] [facility] [place] [address] Sep, [facility] [address] [id number] [facility] [place] [address] Sep, [facility] [address] [id number] [address] [place] [address], [place] [address] Sep, [facility] [address] [id number] [address] [place] [address], [place] [address] Sep, [facility] [address] [id number] [address] [place] [address], [place] [address] Sep, [facility] [address] [id number] [address] [place] [address], [place] [address] Aug, [facility] [address] [id number] [address] [place] [address], [place] [address] Aug, [facility] [address] [id number] [address] [place] [address], [place] [address] Aug, [facility] [address] [id number] [address] [place] [address], [place] [address] Aug, [facility] [address] [id number] [address] [place] [address], [place] [address] Aug, [facility] [address] [id number] [address] [place] [address], [place] [address] Aug, [facility] [address] [id number] [address] [place] [address], [place] [address] Jul, [facility] [address] [id number] [address] [place] [address], [place] [address] Jul, [facility] [address] [id number] [address] [place] [address], [place] [address] Jul, [facility] [address] [id number] [address] [place] [address], [place] [address] Jul, [facility] [address] [id number] [address] [place] [address], [place] [address] Jul, [facility] [address] [id number] [address] [place] [address], [place] [address] Jul, [facility] [address] [id number] [address] [place] [address], [place] [address] Jul, [facility] [address] [id number] [address] [place] [address], [place] [address] Jul, [facility] [address] [id number] [address] [place] [address], [place] [address] Jul, [facility] [address] [id number] [address] [place] [address], [place] [address] Jul, [facility] [address] [id number] [address] [place] [address], [place] [address] Jun, [facility] [address] [id number] [address] [place] [address], [place] [address] Jun, [facility] [address] [id number] [address] [place] [address], [place] [address] Jun, [facility] [address] [id number] [address] [place] [address], [place] [address] Jun, [facility] [address] [id number] [address] [place] [address], [place] [address] Jun, [facility] [address] [id number] [address] [place] [address], [place] [address] Jun, [facility] [address] [id number] [address] [place] [address], [place] [address] Jun, [facility] [address] [id number] [address] [place] [address], [place] [address] Jun, [facility] [address] [id number] [address] [place] [address], [place] [address] May, [facility] [address] [id number] [address] [place] [address], [place] [address] May, [facility] [address] [id number] [address] [place] [address], [place] [address] May, [facility] [address] [id number] [address] [place] [address], [place] [address] May, [facility] [address] [id number] [address] [place] [address], [place] [address] May, [facility] [address] [id number] [address] [place] [address], [place] [address] May, [facility] [address] [id number] [address] [place] [address], [place] [address] May, [facility] [address] [id number] [address] [place] [address], [place] [address] May, [facility] [address] [id number] [address] [place] [address], [place] [address] Apr, [facility] [address] [id number] [address] [place] [address], [place] [address] Apr, [facility] [address] [id number] [address] [place] [address], [place] [address] Apr, [facility] [address] [id number] [address] [place] [address], [place] [address] Apr, [facility] [address] [id number] [address] [place] [address], [place] [address] Apr, [facility] [address] [id number] [address] [place] [address], [place] [address] Apr, [facility] [address] [id number] [address] [place] [address], [place] [address] Mar, [facility] [address] [id number] [address] [place] [address], [place] [address] Mar, [facility] [address] [id number] [address] [place] [address], [place] [address] Mar, [facility] [address] [id number] [address] [place] [address], [place] [address] Mar, [facility] [address] [id number] [address] [place] [address], [place] [address] Mar, [facility] [address] [id number] [address] [place] [address], [place] [address] Mar, [facility] [address] [id number] [address] [place] [address], [place] [address] Mar, [facility] [address] [id number] [address] [place] [address], [place] [address] 30 Feb, 2013 [facility] [address] [id number] [address] [place] [address], [place] [address] 30 Feb, 2013 [facility] [address] [id number] [address] [place] [address], [place] [address] Feb, [facility] [address] [id number] [address] [place] [address], [place] [address] Feb, [facility] [address] [id number] [address] [place] [address], [place] [address] Feb, [facility] [address] [id number] [address] [place] [address], [place] [address] Feb, [facility] [address] [id number] [address] [place] [address], [place] [address] Jan, [facility] [address] [id number] [address] [place] [address], [place] [address] Jan, [facility] [address] [id number] [address] [place] [address], [place] [address] Jan, [facility] [address] [id number] [address] [place] [address], [place] [address] Jan, [facility] [address] [id number] [address] [place] [address], [place] [address] Jan, [facility] [address] [id number] [address] [place] [address], [place] [address] Jan, [facility] [address] [id number] [address] [place] [address], [place] [address] Jan, [facility] [address] [id number] [address] [place] [address], [place] [address] Jan, [facility] [address] [id number] [address] [place] [address], [place] [address] Jan, [facility] [address] [id number] [address] [place] [address], [place] [address] Dec, [facility] [address] [id number] [address] [place] [address], [place] [address] Dec, [facility] [address] [id number] [address] [place] [address], [place] [address] Dec, [facility] [address] [id number] [address] [place] [address], [place] [address] Dec, [facility] [address] [id number] [address] [place] [address], [place] [address] Dec, [facility] [address] [id number] [address] [place] [address], [place] [address] Dec, [facility] [address] [id number] [address] [place] [address], [place] [address] Dec, [facility] [address] [id number] [address] [place] [address], [place] [address] Dec, [facility] [address] [id number] [address] [place] [address], [place] [address] Dec, [facility] [address] [id number] [address] [place] [address], [place] [address] Dec, [facility] [address] [id number] [address] [place] [address], [place] [address] Dec, [facility] [address] [id number] [address] [place] [address], [place] [address] Dec, [facility] [address] [id number] [address] [place] [address], [place] [address] Dec, [facility] [address] [id number] [address] [place] [address], [place] [address] Nov, [facility] [address] [id number] [address] [place] [address], [place] [address] Nov, [facility] [address] [id number] [address] [place] [address], [place] [address] Nov, [facility] [address] [id number] [address] [place] [address], [place] [address] Nov, [facility] [address] [id number] [address] [place] [address], [place] [address] October, [facility] [address] [id number] [address] [place] [address], [place] [address] October, [facility] [address] [id number] [address] [place] [address], [place] [address] October, [facility] [address] [id number] [address] [place] [address], [place] [address] October, [facility] [address] [id number] [address] [place] [address], [place] [address] October, [facility] [address] [id number] [address] [place] [address], [place] [address] October, [facility] [address] [id number] [address] [place] [address], [place] [address] Sep, [facility] [address] [id number] [address] [place] [address], [place] [address] Sep, [facility] [address] [id number] [address] [place] [address], [place] [address] Sep, [facility] [address] [id number] [address] [place] [address], [place] [address] Sep, [facility] [address] [id number] [address] [place] [address], [place] [address] 19 Sep, 2012 [facility] [address] [id number] [address] [place] [address], [place] [address] 16 Sep, 2012 [facility] [address] [id number] [address] [place] [address], [place] [address] Sep, [facility] [address] [id number] [address] [place] [address], [place] [address] Sep, [facility] [address] [id number] [address] [place] [address], [place] [address] Sep, [facility] [address] [id number] [address] [place] [address], [place] [address] Sep, [facility] [address] [id number] [address] [place] [address], [place] [address] Sep, [facility] [address] [id number] [address] [place] [address], [place] [address] Aug, [facility] [address] [id number] [address] [place] [address], [place] [address] Aug, [facility] [address] [id number] [address] [place] [address], [place] [address] 25 Aug, 2012 [facility] [address] [id number] [address] [place] [address], [place] [address] Aug, [facility] [address] [id number] [address] [place] [address], [place] [address] 19 Aug, 2012 [facility] [address] [id number] [address] [place] [address], [place] [address] 18 Aug, 2012 [facility] [address] [id number] [address] [place] [address], [place] [address] 17 Aug, 2012 [facility] [address] [id number] [address] [place] [address], [place] [address] 15 Aug, 2012 [facility] [address] [id number] [address] [place] [address], [place] [address] 15 Aug, 2012 [facility] [address] [id number] [address] [place] [address], [place] [address] Aug, [facility] [address] [id number] [address] [place] [address], [place] [address] Aug, [facility] [address] [id number] [address] [place] [address], [place] [address] Aug, [facility] [address] [id number] [address] [place] [address], [place] [address] Jul, [facility] [address] [id number] [address] [place] [address], [place] [address] Jul, [facility] [address] [id number] [address] [place] [address], [place] [address] Jul, [facility] [address] [id number] [address] [place] [address], [place] [address] Jul, [facility] [address] [id number] [address] [place] [address], [place] [address] Jul, [facility] [address] [id number] [address] [place] [address], [place] [address] Jul, [facility] [address] [id number] [address] [place] [address], [place] [address] Jul, [facility] [address] [id number] [address] [place] [address], [place] [address] Jul, [facility] [address] [id number] [address] [place] [address], [place] [address] Jul, [facility] [address] [id number] [address] [place] [address], [place] [address] Jul, [facility] [address] [id number] [address] [place] [address], [place] [address] May, [facility] [address] [id number] [place] [id number] May, [facility] [address] [id number] [address] [address] May, [facility] [address] [id number] [address] [place] [address] May, [facility] [address] [id number] [address] [place] [id number] May, [facility] [address] [id number] [address] [place] [address] Apr, [facility] [place] [address] [id number] [place] [id number] Apr, [facility] [address] [id number] [address] [place] [address] Apr, [facility] [address] [id number] [address] [place] [address] Mar, [facility] [place] [address] [id number] [place] [id number] Mar, [facility] [address] [id number] [address] [place] [id number] Mar, [facility] [place] [address] [id number] [place] [id number] Feb, [facility] [address] [id number] [address] [place] [id number] Feb, [facility] [address] [id number] [address] [place] [address] Feb, [facility] [place] [address] [id number] [place] [id number] Feb, [facility] [place] [address] [id number] [place] [id number] Feb, [facility] [place] [address] [id number] [place] [id number] Jan, [facility] [address] [id number] [address] [place] [address] Jan, [facility] [place] [address] [id number] [place] [id number] Jan, [facility] [place] [address] [id number] [place] [id number] Jan, [facility] [place] [address] [id number] [place] [id number] Jan, [facility] [address] [facility] [id number] [address] [place] [address] Jan, [facility] [address] [facility] [id number] [address] [place] [id number] Jan, [facility] [address] [facility] [id number] [address] [place] [id number] Aug, [facility] [address] [id number] [place] [id number] Aug, [facility] [address] [facility] [id number] [address] [place] [id number] Jul, [facility] [address] [facility] [id number] [address] [place] [id number] Jul, [facility] [address] [facility] [id number] [address] [place] [id number] Jul, [facility] [address] [id number] [place] [id number] Jul, 2011 [facility] [address] [facility] [id number] [address] [place] [id number] Jul, [facility] [address] [id number] [place] [id number] Jul, [facility] [address] [facility] [id number] [address] [place] [id number] Jul, [facility] [address] [id number] [place] [id number] Jul, [facility] [address] [id number] [place] [id number] Jul, [facility] [address] [id number] [place] [id number] Jul, [facility] [address] [facility] [id number] [address] [place] [id number] May, [facility] [address] [id number] [address] [place] [id number] May, [facility] [address] [id number] [address] [place] [id number] May, [facility] [address] [id number] [address] [place] [id number] Apr, [facility] [address] [id number] [address] [place] [id number] Jan, [facility] [address] [id number] [address] [place] [id number] Jan, [facility] [address] [id number] [address] [place] [id number] Dec, [facility] [address] [id number] [address] [place] [id number] Dec, [facility] [address] [id number] [address] [place] [id number] May, [facility] [address] [id number] [address] [place] [id number] Mar, [facility] [address] [id number] [address] [place] [id number] Mar, [facility] [address] [id number] [address] [place] [id number] 14 Jan, 2009 IMMUNIZATIONS No Known Immunizations [...]
--- OUTSIDE RECORDS SUMMARY | 2020-01-28 13:16 | XMS REPORT ---
Author Author Heydi Candelario Doctor Organization [facility] Address Unknown Phone Unavailable Care Team Providers Care Transformer Assembly Supervisor Name Role Phone Migration, Doctor Unavailable Unavailable PROBLEMS Type Condition ICD9-CM Code [id number] Code Onset Dates Condition S tatus SNOMED Code Problem Chronic pain syndrome G89.4 Active 048552116 Problem Sore throat J02.9 Active 82213512 3 Problem Choriocarcinoma C58 Active 1881 14909 Problem care home current use of anticoagulant Z79.01 Active 503885530 Problem History of venous thromboembolism V12.51 Active 071518667 Problem Cellulitis of unspecified part of limb L03.119 Active 649455721 Problem Gastroesophageal reflux disease without esophagitis K21.9 Active 547434548 Problem History of pulmonary embolism Z86.711 Active 811054679 Problem Pseudotumor cerebri G93.2 Active 19544111 Problem History of DVT (deep vein thrombosis) Z86.718 Active 676088504 ALLERGIES No Information ENCOUNTERS Encounter Location Date Diagnosis [place] [address] [place] [id number] [address] [place] [address] 14 Nov, 2019 Encounter for screening labo ratory testing for COVID-19 virus Z11.59 [place] [address] [place] [id number] [address] [place] [address] Apr, 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 [id number] [address] [place] [address] Apr, care home current use of ant icoagulant Z79.01 [place] [address] [facility] [id number] [address] [place] [address] Apr, Cellulitis of unspecified pa rt of limb L03.119 ; Allergic contact dermatitis due to adhesives L23.1 and Chronic pain syndrome G89.4 [place] [address] [address] Apr, [facility] [address] [address] Apr, care home current use of ant icoagulant Z79.01 ; Cellulitis of unspecified part of limb L03.119 ; Chronic pain syndrome G89.4 and Anxiety F41.9 [place] [address] [address] Apr, [facility] [address] [address] Apr, [place] [address] [address] Mar, [place] [address] [address] Mar, [place] [address] [address] Mar, Sore throat J02.9 ; Gastroes ophageal reflux disease without esophagitis K21.9 ; Pseudotumor cerebri G93.2 ; Chronic pain syndrome G89.4 ; Choriocarcinoma C58 ; History of pulmonary embolism Z86.711 ; History of DVT (deep vein thrombosis) Z86.718 ; Anxiety F41.9 and Tachycardia R00.0 [place] [address] [place] [id number] [address] [place] [address] Feb, Anxiety 300.00 and Chronic p ain 338.29 [facility] [address] [place] [id number] [address] [place] [address] Feb, [facility] [address] [address] Feb, [facility] [address] [place] [id number] [address] [place] [address] Jan, 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 and Dysuria 788.1 [place] [address] [place] [id number] [address] [place] [address] Jan, Dysuria 788.1 [place] [address] [address] Jan, Anxiety 300.00 and Chronic p ain 338.29 [place] [address] [address] Jan, [place] [address] [address] Jan, [place] [address] [address] Jan, [place] [address] [address] Dec, Weakness 780.79 [place] [address] [address] Dec, 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 [address] Dec, Palpitations 785.1 ; Tremor 781.0 ; Weakness 780.79 ; care home current use of anticoagulant therapy V58.61 and Yeast vaginitis 112.1 [place] [address] [place] [id number] [address] [place] [address] Dec, [place] [address] [address] Dec, Cervicalgia 723.1 ; Tachycar yoseph 785.0 ; Pseudotumor cerebri 348.2 and History of venous thromboembolism V12.51 [place] [address] [address] Nov, [place] [address] [place] [id number] [address] [place] [address] Nov, [place] [address] [place] [id number] [place] [address] 24 Nov, 2014 Tachycardia 785.0 ; Pseudotu mor cerebri 348.2 ; Anxiety 300.00 and History of venous thromboembolism V12.51 [facility] [address] [id number] [address] [place] [address] 19 Nov, 2014 [facility] [address] [id number] [address] [place] [address] 18 Nov, 2014 [facility] [address] [id number] [address] [place] [address] 16 Nov, 2014 [facility] [address] [id number] [address] [place] [address] Nov, [facility] [address] [facility] [id number] [address] [place] [address] Nov, [facility] [address] [facility] [id number] [address] [place] [address] Nov, [facility] [address] [id number] [address] [place] [address] Nov, [facility] [address] [facility] [id number] [address] [place] [address] October, [facility] [address] [facility] [id number] [address] [place] [address] October, [facility] [address] [facility] [id number] [address] [place] [address] October, Pain in thoracic spine 724.1 and Tachycardia 785.0 [facility] [address] [id number] [address] [place] [address] October, [facility] [address] [facility] [id number] [address] [place] [address] October, [facility] [address] [facility] [id number] [address] [place] [address] 14 Sep, 2014 [facility] [address] [facility] [id number] [address] [place] [address] Sep, [facility] [address] [id number] [address] [place] [address], [place] [address] Aug, [facility] [address] [id number] [address] [place] [address], [place] [address] Aug, [facility] [address] [id number] [address] [place] [address], [place] [address] Aug, [facility] [address] [id number] [address] [place] [address], [place] [address] Aug, [facility] [address] [id number] [address] [place] [address], [place] [address] Aug, [facility] [address] [id number] [address] [place] [address], [place] [address] Aug, [facility] [address] [id number] [address] [place] [address], [place] [address] Aug, [facility] [address] [id number] [address] [place] [address], [place] [address] Aug, [facility] [address] [id number] [address] [place] [address], [place] [address] Aug, [facility] [address] [id number] [address] [place] [address], [place] [address] Aug, [facility] [address] [id number] [address] [place] [address], [place] [address] Aug, [facility] [address] [id number] [address] [place] [address], [place] [address] Aug, [facility] [address] [id number] [address] [place] [address], [place] [address] Jul, [facility] [address] [id number] [address] [place] [address], [place] [address] Jul, [facility] [address] [id number] [address] [place] [address], [place] [address] Jul, [facility] [address] [id number] [address] [place] [address], [place] [address] 23 Jul, 2014 [facility] [address] [id number] [address] [place] [address], [place] [address] 23 Jul, 2014 [facility] [address] [id number] [address] [place] [address], [place] [address] 23 Jul, 2014 [facility] [address] [id number] [address] [place] [address], [place] [address] 23 Jul, 2014 [facility] [address] [id number] [address] [place] [address], [place] [address] 23 Jul, 2014 [facility] [address] [id number] [address] [place] [address], [place] [address] 20 Jul, 2014 [facility] [address] [id number] [address] [place] [address], [place] [address] 20 Jul, 2014 [facility] [address] [id number] [address] [place] [address] 19 Jul, 2014 [facility] [address] [id number] [address] [place] [address], [place] [address] 19 Jul, 2014 [facility] [address] [id number] [address] [place] [address] 17 Jul, 2014 [facility] [address] [id number] [address] [place] [address] 17 Jul, 2014 [facility] [address] [id number] [address] [place] [address] 16 Jul, 2014 [facility] [address] [id number] [address] [place] [address], [place] [address] 16 Jul, 2014 [facility] [address] [id number] [address] [place] [address] 16 Jul, 2014 [facility] [address] [id number] [address] [place] [address] 16 Jul, 2014 [facility] [address] [id number] [address] [place] [address], [place] [address] 13 Jul, 2014 [facility] [address] [id number] [address] [place] [address], [place] [address] Jul, 2014 [facility] [address] [id number] [address] [place] [address], [place] [address] Jul, 2014 [facility] [address] [id number] [address] [place] [address], [place] [address] Jul, 2014 [facility] [address] [id number] [address] [place] [address], [place] [address] Jul, 2014 [facility] [address] [id number] [address] [place] [address], [place] [address] Jul, [facility] [address] [id number] [address] [place] [address], [place] [address] Jul, 2014 [facility] [address] [id number] [address] [place] [address], [place] [address] Jul, [facility] [address] [id number] [address] [place] [address], [place] [address] Jul, [facility] [address] [id number] [address] [place] [address], [place] [address] Jul, [facility] [address] [id number] [address] [place] [address] Jul, [facility] [address] [id number] [address] [place] [address] Jul, [facility] [address] [id number] [address] [place] [address], [place] [address] Jun, [facility] [address] [id number] [address] [place] [address] Jun, [facility] [address] [id number] [address] [place] [address] Jun, [facility] [address] [id number] [address] [place] [address] Jun, [facility] [address] [id number] [address] [place] [address], [place] [address] Jun, [facility] [address] [id number] [address] [place] [address], [place] [address] Jun, [facility] [address] [id number] [address] [place] [address], [place] [address] Jun, [facility] [address] [id number] [address] [place] [address], [place] [address] Jun, [facility] [address] [id number] [address] [place] [address], [place] [address] Jun, [facility] [address] [id number] [address] [place] [address], [place] [address] Jun, [facility] [address] [id number] [address] [place] [address], [place] [address] Jun, [facility] [address] [id number] [address] [place] [address], [place] [address] Jun, [facility] [address] [id number] [address] [place] [address], [place] [address] Jun, [facility] [address] [id number] [address] [place] [address], [place] [address] Jun, [facility] [address] [id number] [address] [place] [address], [place] [address] Jun, [facility] [address] [id number] [address] [place] [address], [place] [address] Jun, [facility] [address] [id number] [address] [place] [address], [place] [address] Jun, [facility] [address] [id number] [address] [place] [address], [place] [address] Jun, [facility] [address] [id number] [address] [place] [address], [place] [address] Jun, [facility] [address] [id number] [address] [place] [address], [place] [address] Jun, [facility] [address] [id number] [address] [place] [address], [place] [address] May, [facility] [address] [id number] [address] [place] [address], [place] [address] May, [facility] [address] [id number] [address] [place] [address], [place] [address] May, [facility] [address] [id number] [address] [place] [address], [place] [address] May, [facility] [address] [id number] [address] [place] [address], [place] [address] May, [facility] [address] [id number] [address] [place] [address], [place] [address] May, [facility] [address] [id number] [address] [place] [address], [place] [address] May, [facility] [address] [id number] [address] [place] [address], [place] [address] May, [facility] [address] [id number] [address] [place] [address], [place] [address] May, [facility] [address] [id number] [address] [place] [address], [place] [address] May, [facility] [address] [id number] [address] [place] [address], [place] [address] May, [facility] [address] [id number] [address] [place] [address], [place] [address] 18 May, 2014 [facility] [address] [id number] [address] [place] [address], [place] [address] 18 May, 2014 [facility] [address] [id number] [address] [place] [address], [place] [address] 17 May, 2014 [facility] [address] [id number] [address] [place] [address], [place] [address] 16 May, 2014 [facility] [address] [id number] [facility] [place] [address] 16 May, 2014 [facility] [address] [id number] [facility] [place] [address] 15 May, 2014 [facility] [address] [id number] [address] [place] [address], [place] [address] 15 May, 2014 [facility] [address] [id number] [address] [place] [address], [place] [address] May, [facility] [address] [id number] [address] [place] [address], [place] [address] May, [facility] [address] [id number] [address] [place] [address], [place] [address] May, [facility] [address] [id number] [address] [place] [address], [place] [address] May, [facility] [address] [id number] [address] [place] [address], [place] [address] May, [facility] [address] [id number] [address] [place] [address], [place] [address] May, [facility] [address] [id number] [address] [place] [address], [place] [address] May, [facility] [address] [id number] [address] [place] [address], [place] [address] May, [facility] [address] [id number] [address] [place] [address], [place] [address] May, [facility] [address] [id number] [address] [place] [address], [place] [address] May, [facility] [address] [id number] [address] [place] [address], [place] [address] May, [facility] [address] [id number] [address] [place] [address], [place] [address] May, [facility] [address] [id number] [address] [place] [address], [place] [address] 05 May, 2014 [facility] [address] [id number] [address] [place] [address], [place] [address] May, [facility] [address] [id number] [address] [place] [address], [place] [address] May, [facility] [address] [id number] [address] [place] [address], [place] [address] May, [facility] [address] [id number] [address] [place] [address], [place] [address] Apr, [facility] [address] [id number] [address] [place] [address], [place] [address] Apr, [facility] [address] [id number] [address] [place] [address], [place] [address] Apr, [facility] [address] [id number] [address] [place] [address], [place] [address] Apr, [facility] [address] [id number] [address] [place] [address], [place] [address] Apr, [facility] [address] [id number] [address] [place] [address], [place] [address] Apr, [facility] [address] [id number] [address] [place] [address], [place] [address] Apr, [facility] [address] [id number] [address] [place] [address], [place] [address] Apr, [facility] [address] [id number] [address] [place] [address], [place] [address] Apr, [facility] [address] [id number] [address] [place] [address], [place] [address] Apr, [facility] [address] [id number] [address] [place] [address], [place] [address] Mar, [facility] [address] [id number] [address] [place] [address], [place] [address] Mar, [facility] [address] [id number] [address] [place] [address], [place] [address] 31 Mar, 2013 [facility] [address] [id number] [address] [place] [address], [place] [address] Mar, 2013 [facility] [address] [id number] [address] [place] [address], [place] [address] 30 Mar, 2014 [facility] [address] [id number] [address] [place] [address], [place] [address] 30 Mar, 2014 [facility] [address] [id number] [address] [place] [address], [place] [address] Mar, [facility] [address] [id number] [address] [place] [address], [place] [address] Mar, [facility] [address] [id number] [address] [place] [address], [place] [address] Mar, [facility] [address] [id number] [address] [place] [address], [place] [address] Mar, [facility] [address] [id number] [address] [place] [address], [place] [address] Mar, [facility] [address] [id number] [address] [place] [address], [place] [address] Mar, [facility] [address] [id number] [address] [place] [address], [place] [address] Mar, [facility] [address] [id number] [address] [place] [address], [place] [address] Mar, [facility] [address] [id number] [address] [place] [address], [place] [address] Mar, [facility] [address] [id number] [address] [place] [address], [place] [address] Mar, [facility] [address] [id number] [address] [place] [address], [place] [address] Mar, [facility] [address] [id number] [address] [place] [address] Mar, [facility] [address] [id number] [address] [place] [address], [place] [address] Mar, [facility] [address] [id number] [address] [place] [address], [place] [address] Mar, [facility] [address] [id number] [address] [place] [address], [place] [address] 05 Sep, 2013 [facility] [address] [id number] [address] [place] [address], [place] [address] 05 Sep, 2013 [facility] [address] [id number] [address] [place] [address], [place] [address] 04 Feb, 2013 [facility] [address] [id number] [address] [place] [address], [place] [address] 04 Feb, 2013 [facility] [address] [id number] [address] [place] [address], [place] [address] Feb, 2013 [facility] [address] [id number] [address] [place] [address], [place] [address] Feb, 2013 [facility] [address] [id number] [address] [place] [address], [place] [address] Feb, 2013 [facility] [address] [id number] [address] [place] [address], [place] [address] Feb, 2013 [facility] [address] [id number] [address] [place] [address], [place] [address] Feb, 2013 [facility] [address] [id number] [address] [place] [address], [place] [address] Feb, 2013 [facility] [address] [id number] [address] [place] [address], [place] [address] Jan, [facility] [address] [id number] [address] [place] [address], [place] [address] Jan, [facility] [address] [id number] [address] [place] [address], [place] [address] Jan, [facility] [address] [id number] [facility] [place] [address] Jan, [facility] [address] [id number] [facility] [place] [address] Jan, [facility] [address] [id number] [facility] [place] [address] Jan, [facility] [address] [id number] [address] [place] [address], [place] [address] Jan, [facility] [address] [id number] [address] [place] [address], [place] [address] Jan, [facility] [address] [id number] [address] [place] [address], [place] [address] Jan, [facility] [address] [id number] [address] [place] [address], [place] [address] Jan, [facility] [address] [id number] [address] [place] [address], [place] [address] Jan, [facility] [address] [id number] [address] [place] [address], [place] [address] Jan, [facility] [address] [id number] [address] [place] [address], [place] [address] Dec, [facility] [address] [id number] [address] [place] [address], [place] [address] Dec, [facility] [address] [id number] [address] [place] [address], [place] [address] Dec, [facility] [address] [id number] [address] [place] [address], [place] [address] Dec, [facility] [address] [id number] [address] [place] [address], [place] [address] Dec, [facility] [address] [id number] [address] [place] [address], [place] [address] Dec, [facility] [address] [id number] [address] [place] [address], [place] [address] Dec, [facility] [address] [id number] [address] [place] [address], [place] [address] Dec, 2013 [facility] [address] [id number] [address] [place] [address], [place] [address] Dec, [facility] [address] [id number] [address] [place] [address], [place] [address] Dec, [facility] [address] [id number] [address] [place] [address], [place] [address] Dec, [facility] [address] [id number] [address] [place] [address], [place] [address] Dec, [facility] [address] [id number] [address] [place] [address], [place] [address] Nov, [facility] [address] [id number] [address] [place] [address], [place] [address] Nov, [facility] [address] [id number] [address] [place] [address], [place] [address] Nov, [facility] [address] [id number] [address] [place] [address], [place] [address] Nov, [facility] [address] [id number] [address] [place] [address], [place] [address] Nov, [facility] [address] [id number] [address] [place] [address], [place] [address] Nov, [facility] [address] [id number] [address] [place] [address], [place] [address] Nov, [facility] [address] [id number] [address] [place] [address], [place] [address] Nov, [facility] [address] [id number] [address] [place] [address], [place] [address] Nov, [facility] [address] [id number] [address] [place] [address], [place] [address] Nov, [facility] [address] [id number] [address] [place] [address], [place] [address] Nov, [facility] [address] [id number] [address] [place] [address], [place] [address] Nov, [facility] [address] [id number] [address] [place] [address], [place] [address] Nov, [facility] [address] [id number] [address] [place] [address], [place] [address] Nov, [facility] [address] [id number] [address] [place] [address], [place] [address] October, [facility] [address] [id number] [address] [place] [address], [place] [address] October, [facility] [address] [id number] [address] [place] [address], [place] [address] October, [facility] [address] [id number] [address] [place] [address], [place] [address] October, [facility] [address] [id number] [address] [place] [address], [place] [address] October, [facility] [address] [id number] [address] [place] [address], [place] [address] October, [facility] [address] [id number] [address] [place] [address], [place] [address] October, [facility] [address] [id number] [address] [place] [address], [place] [address] October, [facility] [address] [id number] [address] [place] [address], [place] [address] October, [facility] [address] [id number] [address] [place] [address], [place] [address] October, [facility] [address] [id number] [address] [place] [address], [place] [address] October, [facility] [address] [id number] [address] [place] [address], [place] [address] October, [facility] [address] [id number] [facility] [place] [address] Sep, [facility] [address] [id number] [facility] [place] [address] Sep, [facility] [address] [id number] [facility] [place] [address] Sep, [facility] [address] [id number] [address] [place] [address], [place] [address] Sep, [facility] [address] [id number] [address] [place] [address], [place] [address] Sep, [facility] [address] [id number] [address] [place] [address], [place] [address] Sep, [facility] [address] [id number] [address] [place] [address], [place] [address] Aug, [facility] [address] [id number] [address] [place] [address], [place] [address] Aug, [facility] [address] [id number] [address] [place] [address], [place] [address] Aug, [facility] [address] [id number] [address] [place] [address], [place] [address] Aug, [facility] [address] [id number] [address] [place] [address], [place] [address] Aug, [facility] [address] [id number] [address] [place] [address], [place] [address] Aug, [facility] [address] [id number] [address] [place] [address], [place] [address] Jul, [facility] [address] [id number] [address] [place] [address], [place] [address] Jul, [facility] [address] [id number] [address] [place] [address], [place] [address] Jul, [facility] [address] [id number] [address] [place] [address], [place] [address] Jul, [facility] [address] [id number] [address] [place] [address], [place] [address] Jul, [facility] [address] [id number] [address] [place] [address], [place] [address] Jul, [facility] [address] [id number] [address] [place] [address], [place] [address] Jul, [facility] [address] [id number] [address] [place] [address], [place] [address] Jul, [facility] [address] [id number] [address] [place] [address], [place] [address] Jul, [facility] [address] [id number] [address] [place] [address], [place] [address] Jul, [facility] [address] [id number] [address] [place] [address], [place] [address] Jun, [facility] [address] [id number] [address] [place] [address], [place] [address] Jun, [facility] [address] [id number] [address] [place] [address], [place] [address] Jun, [facility] [address] [id number] [address] [place] [address], [place] [address] Jun, [facility] [address] [id number] [address] [place] [address], [place] [address] Jun, [facility] [address] [id number] [address] [place] [address], [place] [address] Jun, [facility] [address] [id number] [address] [place] [address], [place] [address] Jun, [facility] [address] [id number] [address] [place] [address], [place] [address] Jun, [facility] [address] [id number] [address] [place] [address], [place] [address] May, [facility] [address] [id number] [address] [place] [address], [place] [address] May, [facility] [address] [id number] [address] [place] [address], [place] [address] May, [facility] [address] [id number] [address] [place] [address], [place] [address] May, [facility] [address] [id number] [address] [place] [address], [place] [address] May, [facility] [address] [id number] [address] [place] [address], [place] [address] May, [facility] [address] [id number] [address] [place] [address], [place] [address] May, [facility] [address] [id number] [address] [place] [address], [place] [address] May, [facility] [address] [id number] [address] [place] [address], [place] [address] Apr, [facility] [address] [id number] [address] [place] [address], [place] [address] Apr, [facility] [address] [id number] [address] [place] [address], [place] [address] Apr, [facility] [address] [id number] [address] [place] [address], [place] [address] Apr, [facility] [address] [id number] [address] [place] [address], [place] [address] Apr, [facility] [address] [id number] [address] [place] [address], [place] [address] Apr, [facility] [address] [id number] [address] [place] [address], [place] [address] Mar, [facility] [address] [id number] [address] [place] [address], [place] [address] Mar, [facility] [address] [id number] [address] [place] [address], [place] [address] Mar, [facility] [address] [id number] [address] [place] [address], [place] [address] Mar, [facility] [address] [id number] [address] [place] [address], [place] [address] Mar, [facility] [address] [id number] [address] [place] [address], [place] [address] Mar, [facility] [address] [id number] [address] [place] [address], [place] [address] Mar, [facility] [address] [id number] [address] [place] [address], [place] [address] 30 Feb, 2013 [facility] [address] [id number] [address] [place] [address], [place] [address] 30 Feb, 2013 [facility] [address] [id number] [address] [place] [address], [place] [address] Feb, [facility] [address] [id number] [address] [place] [address], [place] [address] Feb, [facility] [address] [id number] [address] [place] [address], [place] [address] Feb, [facility] [address] [id number] [address] [place] [address], [place] [address] Feb, [facility] [address] [id number] [address] [place] [address], [place] [address] Jan, [facility] [address] [id number] [address] [place] [address], [place] [address] Jan, [facility] [address] [id number] [address] [place] [address], [place] [address] Jan, [facility] [address] [id number] [address] [place] [address], [place] [address] Jan, [facility] [address] [id number] [address] [place] [address], [place] [address] Jan, [facility] [address] [id number] [address] [place] [address], [place] [address] Jan, [facility] [address] [id number] [address] [place] [address], [place] [address] Jan, [facility] [address] [id number] [address] [place] [address], [place] [address] Jan, [facility] [address] [id number] [address] [place] [address], [place] [address] Jan, [facility] [address] [id number] [address] [place] [address], [place] [address] Dec, [facility] [address] [id number] [address] [place] [address], [place] [address] Dec, [facility] [address] [id number] [address] [place] [address], [place] [address] Dec, [facility] [address] [id number] [address] [place] [address], [place] [address] Dec, [facility] [address] [id number] [address] [place] [address], [place] [address] Dec, [facility] [address] [id number] [address] [place] [address], [place] [address] Dec, [facility] [address] [id number] [address] [place] [address], [place] [address] Dec, [facility] [address] [id number] [address] [place] [address], [place] [address] Dec, [facility] [address] [id number] [address] [place] [address], [place] [address] Dec, [facility] [address] [id number] [address] [place] [address], [place] [address] Dec, [facility] [address] [id number] [address] [place] [address], [place] [address] Dec, [facility] [address] [id number] [address] [place] [address], [place] [address] Dec, [facility] [address] [id number] [address] [place] [address], [place] [address] Dec, [facility] [address] [id number] [address] [place] [address], [place] [address] Nov, [facility] [address] [id number] [address] [place] [address], [place] [address] Nov, [facility] [address] [id number] [address] [place] [address], [place] [address] Nov, [facility] [address] [id number] [address] [place] [address], [place] [address] Nov, [facility] [address] [id number] [address] [place] [address], [place] [address] October, [facility] [address] [id number] [address] [place] [address], [place] [address] October, [facility] [address] [id number] [address] [place] [address], [place] [address] October, [facility] [address] [id number] [address] [place] [address], [place] [address] October, [facility] [address] [id number] [address] [place] [address], [place] [address] October, [facility] [address] [id number] [address] [place] [address], [place] [address] October, [facility] [address] [id number] [address] [place] [address], [place] [address] Sep, [facility] [address] [id number] [address] [place] [address], [place] [address] Sep, [facility] [address] [id number] [address] [place] [address], [place] [address] Sep, [facility] [address] [id number] [address] [place] [address], [place] [address] Sep, [facility] [address] [id number] [address] [place] [address], [place] [address] 19 Sep, 2012 [facility] [address] [id number] [address] [place] [address], [place] [address] 16 Sep, 2012 [facility] [address] [id number] [address] [place] [address], [place] [address] Sep, [facility] [address] [id number] [address] [place] [address], [place] [address] Sep, [facility] [address] [id number] [address] [place] [address], [place] [address] Sep, [facility] [address] [id number] [address] [place] [address], [place] [address] Sep, [facility] [address] [id number] [address] [place] [address], [place] [address] Sep, [facility] [address] [id number] [address] [place] [address], [place] [address] Aug, [facility] [address] [id number] [address] [place] [address], [place] [address] Aug, [facility] [address] [id number] [address] [place] [address], [place] [address] 25 Aug, 2012 [facility] [address] [id number] [address] [place] [address], [place] [address] Aug, [facility] [address] [id number] [address] [place] [address], [place] [address] 19 Aug, 2012 [facility] [address] [id number] [address] [place] [address], [place] [address] 18 Aug, 2012 [facility] [address] [id number] [address] [place] [address], [place] [address] 17 Aug, 2012 [facility] [address] [id number] [address] [place] [address], [place] [address] 15 Aug, 2012 [facility] [address] [id number] [address] [place] [address], [place] [address] 15 Aug, 2012 [facility] [address] [id number] [address] [place] [address], [place] [address] Aug, [facility] [address] [id number] [address] [place] [address], [place] [address] Aug, [facility] [address] [id number] [address] [place] [address], [place] [address] Aug, [facility] [address] [id number] [address] [place] [address], [place] [address] Jul, [facility] [address] [id number] [address] [place] [address], [place] [address] Jul, [facility] [address] [id number] [address] [place] [address], [place] [address] Jul, [facility] [address] [id number] [address] [place] [address], [place] [address] Jul, [facility] [address] [id number] [address] [place] [address], [place] [address] Jul, [facility] [address] [id number] [address] [place] [address], [place] [address] Jul, [facility] [address] [id number] [address] [place] [address], [place] [address] Jul, [facility] [address] [id number] [address] [place] [address], [place] [address] Jul, [facility] [address] [id number] [address] [place] [address], [place] [address] Jul, [facility] [address] [id number] [address] [place] [address], [place] [address] Jul, [facility] [address] [id number] [address] [place] [address], [place] [address] May, [facility] [address] [id number] [place] [id number] May, [facility] [address] [id number] [address] [address] May, [facility] [address] [id number] [address] [place] [id number] May, [facility] [address] [id number] [address] [place] [id number] May, [facility] [address] [id number] [address] [place] [address] Apr, [facility] [address] [id number] [place] [id number] Apr, [facility] [address] [id number] [address] [place] [id number] Apr, [facility] [address] [id number] [address] [place] [address] Mar, [facility] [address] [id number] [place] [id number] Mar, [facility] [address] [id number] [address] [place] [address] Mar, [facility] [address] [id number] [place] [id number] Feb, [facility] [address] [id number] [address] [place] [address] Feb, [facility] [address] [id number] [address] [place] [id number] Feb, [facility] [address] [id number] [place] [id number] Feb, [facility] [address] [id number] [place] [id number] Feb, [facility] [place] [address] [id number] [place] [id number] Jan, [facility] [address] [id number] [address] [place] [address] Jan, [facility] [place] [address] [id number] [place] [id number] Jan, [facility] [place] [address] [id number] [place] [id number] Jan, [facility] [address] [id number] [place] [id number] Jan, [facility] [address] [facility] [id number] [address] [address] Jan, [facility] [address] [facility] [id number] [address] [place] [id number] Jan, [facility] [address] [facility] [id number] [address] [place] [address] Aug, [facility] [address] [id number] [place] [id number] Aug, [facility] [address] [facility] [id number] [address] [place] [id number] Jul, [facility] [address] [facility] [id number] [address] [place] [address] Jul, [facility] [address] [facility] [id number] [address] [place] [id number] Jul, [facility] [address] [id number] [place] [id number] Jul, 2011 [facility] [address] [facility] [id number] [address] [place] [address] Jul, [facility] [address] [id number] [place] [id number] Jul, [facility] [address] [facility] [id number] [address] [place] [id number] Jul, [facility] [address] [id number] [place] [id number] Jul, [facility] [address] [id number] [place] [id number] Jul, [facility] [address] [id number] [place] [id number] Jul, [facility] [address] [facility] [id number] [address] [place] [id number] May, [facility] [address] [id number] [address] [place] [id number] May, [facility] [address] [id number] [address] [place] [id number] May, [facility] [address] [id number] [address] [place] [id number] Apr, [facility] [address] [id number] [address] [place] [id number] Jan, [facility] [address] [id number] [address] [place] [id number] Jan, [facility] [address] [id number] [address] [place] [id number] Dec, [facility] [address] [id number] [address] [place] [address] Dec, [facility] [address] [id number] [address] [place] [id number] May, [facility] [address] [id number] [address] [place] [id number] Mar, [facility] [address] [id number] [address] [place] [id number] Mar, [facility] [address] [id number] [address] [place] [id number] 14 Jan, 2009 IMMUNIZATIONS No Known Immunizations [...]
--- OUTSIDE RECORDS SUMMARY | 2020-01-28 13:16 | XMS REPORT ---
Author Author Heydi Candelario Doctor Organization [facility] Address Unknown Phone Unavailable Care Team Providers Care Manager Quality Compliance Name Role Phone Migration, Doctor Unavailable Unavailable PROBLEMS Type Condition ICD9-CM Code [id number] Code Onset Dates Condition S tatus SNOMED Code Problem Chronic pain syndrome G89.4 Active 827492105 Problem Sore throat J02.9 Active 96554054 3 Problem Choriocarcinoma C58 Active 1881 27471 Problem halfway current use of anticoagulant Z79.01 Active 744944498 Problem History of venous thromboembolism V12.51 Active 521030028 Problem Cellulitis of unspecified part of limb L03.119 Active 950687599 Problem Gastroesophageal reflux disease without esophagitis K21.9 Active 628556738 Problem History of pulmonary embolism Z86.711 Active 044246762 Problem Pseudotumor cerebri G93.2 Active 77404608 Problem History of DVT (deep vein thrombosis) Z86.718 Active 145596361 ALLERGIES No Information ENCOUNTERS Encounter Location Date Diagnosis [place] [address] [address] [place] [id number] [address] [place] [phone] 14 Nov, 2019 Encounter for screening labo ratory testing for COVID-19 virus Z11.59 [place] [address] [place] [id number] [address] [place] [address] Apr, 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) use of 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 Z79.01 [place] [facility] [id number] [address] [place] [address] Apr, halfway current use of ant icoagulant Z79.01 [place] [address] [address] [facility] [id number] [address] [place] [address] Apr, Cellulitis of unspecified pa rt of limb L03.119 ; Allergic contact dermatitis due to adhesives L23.1 and Chronic pain syndrome G89.4 [place] [address] [address] Apr, [facility] [address] [address] Apr, halfway current use of ant icoagulant Z79.01 ; Cellulitis of unspecified part of limb L03.119 ; Chronic pain syndrome G89.4 and Anxiety F41.9 [place] [address] [address] Apr, [facility] [address] [address] Apr, [place] [address] [address] Mar, [place] [address] [address] Mar, [place] [address] [address] Mar, Sore throat J02.9 ; Gastroes ophageal reflux disease without esophagitis K21.9 ; Pseudotumor cerebri G93.2 ; Chronic pain syndrome G89.4 ; Choriocarcinoma C58 ; History of pulmonary embolism Z86.711 ; History of DVT (deep vein thrombosis) Z86.718 ; Anxiety F41.9 and Tachycardia R00.0 [place] [address] [place] [id number] [address] [place] [address] Feb, Anxiety 300.00 and Chronic p ain 338.29 [facility] [address] [place] [id number] [address] [place] [address] Feb, [facility] [address] [address] Feb, [facility] [address] [place] [id number] [address] [place] [address] Jan, 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 current use of ant icoagulant therapy V58.61 and Dysuria 788.1 [place] [address] [place] [id number] [address] [place] [address] Jan, Dysuria 788.1 [place] [address] [address] Jan, Anxiety 300.00 and Chronic p ain 338.29 [place] [address] [address] Jan, [place] [address] [address] Jan, [place] [address] [address] Jan, [place] [address] [address] Dec, Weakness 780.79 [place] [address] [address] Dec, 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 current use of ant icoagulant therapy V58.[address] [address] Dec, Palpitations 785.1 ; Tremor 781.0 ; Weakness 780.79 ; halfway current use of anticoagulant therapy V58.61 and Yeast vaginitis 112.1 [place] [address] [place] [id number] [address] [place] [address] Dec, [place] [address] [address] Dec, Cervicalgia 723.1 ; Tachycar yoseph 785.0 ; Pseudotumor cerebri 348.2 and History of venous thromboembolism V12.51 [place] [address] [address] Nov, [place] [address] [place] [id number] [address] [place] [address] Nov, [place] [address] [place] [id number] [place] [address] 24 Nov, 2014 Tachycardia 785.0 ; Pseudotu mor cerebri 348.2 ; Anxiety 300.00 and History of venous thromboembolism V12.51 [facility] [address] [id number] [address] [place] [address] 19 Nov, 2014 [facility] [address] [id number] [address] [place] [address] 18 Nov, 2014 [facility] [address] [id number] [address] [place] [address] 16 Nov, 2014 [facility] [address] [id number] [address] [place] [address] Nov, [facility] [address] [facility] [id number] [address] [place] [address] Nov, [facility] [address] [facility] [id number] [address] [place] [address] Nov, [facility] [address] [id number] [address] [place] [address] Nov, [facility] [address] [facility] [id number] [address] [place] [address] October, [facility] [address] [facility] [id number] [address] [place] [address] October, [facility] [address] [facility] [id number] [address] [place] [address] October, Pain in thoracic spine 724.1 and Tachycardia 785.0 [facility] [address] [id number] [address] [place] [address] October, [facility] [address] [facility] [id number] [address] [place] [address] October, [facility] [address] [facility] [id number] [address] [place] [address] 14 Sep, 2014 [facility] [address] [facility] [id number] [address] [place] [address] Sep, [facility] [address] [id number] [address] [place] [address], [place] [address] Aug, [facility] [address] [id number] [address] [place] [address], [place] [address] Aug, [facility] [address] [id number] [address] [place] [address], [place] [address] Aug, [facility] [address] [id number] [address] [place] [address], [place] [address] Aug, [facility] [address] [id number] [address] [place] [address], [place] [address] Aug, [facility] [address] [id number] [address] [place] [address], [place] [address] Aug, [facility] [address] [id number] [address] [place] [address], [place] [address] Aug, [facility] [address] [id number] [address] [place] [address], [place] [address] Aug, [facility] [address] [id number] [address] [place] [address], [place] [address] Aug, [facility] [address] [id number] [address] [place] [address], [place] [address] Aug, [facility] [address] [id number] [address] [place] [address], [place] [address] Aug, [facility] [address] [id number] [address] [place] [address], [place] [address] Aug, [facility] [address] [id number] [address] [place] [address], [place] [address] Jul, [facility] [address] [id number] [address] [place] [address], [place] [address] Jul, [facility] [address] [id number] [address] [place] [address], [place] [address] Jul, [facility] [address] [id number] [address] [place] [address], [place] [address] 23 Jul, 2014 [facility] [address] [id number] [address] [place] [address], [place] [address] 23 Jul, 2014 [facility] [address] [id number] [address] [place] [address], [place] [address] 23 Jul, 2014 [facility] [address] [id number] [address] [place] [address], [place] [address] 23 Jul, 2014 [facility] [address] [id number] [address] [place] [address], [place] [address] 23 Jul, 2014 [facility] [address] [id number] [address] [place] [address], [place] [address] 20 Jul, 2014 [facility] [address] [id number] [address] [place] [address], [place] [address] 20 Jul, 2014 [facility] [address] [id number] [address] [place] [address] 19 Jul, 2014 [facility] [address] [id number] [address] [place] [address], [place] [address] 19 Jul, 2014 [facility] [address] [id number] [address] [place] [address] 17 Jul, 2014 [facility] [address] [id number] [address] [place] [address] 17 Jul, 2014 [facility] [address] [id number] [address] [place] [address] 16 Jul, 2014 [facility] [address] [id number] [address] [place] [address], [place] [address] 16 Jul, 2014 [facility] [address] [id number] [address] [place] [address] 16 Jul, 2014 [facility] [address] [id number] [address] [place] [address] 16 Jul, 2014 [facility] [address] [id number] [address] [place] [address], [place] [address] 13 Jul, 2014 [facility] [address] [id number] [address] [place] [address], [place] [address] Jul, 2014 [facility] [address] [id number] [address] [place] [address], [place] [address] Jul, 2014 [facility] [address] [id number] [address] [place] [address], [place] [address] Jul, 2014 [facility] [address] [id number] [address] [place] [address], [place] [address] Jul, 2014 [facility] [address] [id number] [address] [place] [address], [place] [address] Jul, [facility] [address] [id number] [address] [place] [address], [place] [address] Jul, 2014 [facility] [address] [id number] [address] [place] [address], [place] [address] Jul, [facility] [address] [id number] [address] [place] [address], [place] [address] Jul, [facility] [address] [id number] [address] [place] [address], [place] [address] Jul, [facility] [address] [id number] [address] [place] [address] Jul, [facility] [address] [id number] [address] [place] [address] Jul, [facility] [address] [id number] [address] [place] [address], [place] [address] Jun, [facility] [address] [id number] [address] [place] [address] Jun, [facility] [address] [id number] [address] [place] [address] Jun, [facility] [address] [id number] [address] [place] [address] Jun, [facility] [address] [id number] [address] [place] [address], [place] [address] Jun, [facility] [address] [id number] [address] [place] [address], [place] [address] Jun, [facility] [address] [id number] [address] [place] [address], [place] [address] Jun, [facility] [address] [id number] [address] [place] [address], [place] [address] Jun, [facility] [address] [id number] [address] [place] [address], [place] [address] Jun, [facility] [address] [id number] [address] [place] [address], [place] [address] Jun, [facility] [address] [id number] [address] [place] [address], [place] [address] Jun, [facility] [address] [id number] [address] [place] [address], [place] [address] Jun, [facility] [address] [id number] [address] [place] [address], [place] [address] Jun, [facility] [address] [id number] [address] [place] [address], [place] [address] Jun, [facility] [address] [id number] [address] [place] [address], [place] [address] Jun, [facility] [address] [id number] [address] [place] [address], [place] [address] Jun, [facility] [address] [id number] [address] [place] [address], [place] [address] Jun, [facility] [address] [id number] [address] [place] [address], [place] [address] Jun, [facility] [address] [id number] [address] [place] [address], [place] [address] Jun, [facility] [address] [id number] [address] [place] [address], [place] [address] Jun, [facility] [address] [id number] [address] [place] [address], [place] [address] May, [facility] [address] [id number] [address] [place] [address], [place] [address] May, [facility] [address] [id number] [address] [place] [address], [place] [address] May, [facility] [address] [id number] [address] [place] [address], [place] [address] May, [facility] [address] [id number] [address] [place] [address], [place] [address] May, [facility] [address] [id number] [address] [place] [address], [place] [address] May, [facility] [address] [id number] [address] [place] [address], [place] [address] May, [facility] [address] [id number] [address] [place] [address], [place] [address] May, [facility] [address] [id number] [address] [place] [address], [place] [address] May, [facility] [address] [id number] [address] [place] [address], [place] [address] May, [facility] [address] [id number] [address] [place] [address], [place] [address] May, [facility] [address] [id number] [address] [place] [address], [place] [address] 18 May, 2014 [facility] [address] [id number] [address] [place] [address], [place] [address] 18 May, 2014 [facility] [address] [id number] [address] [place] [address], [place] [address] 17 May, 2014 [facility] [address] [id number] [address] [place] [address], [place] [address] 16 May, 2014 [facility] [address] [id number] [facility] [place] [address] 16 May, 2014 [facility] [address] [id number] [facility] [place] [address] 15 May, 2014 [facility] [address] [id number] [address] [place] [address], [place] [address] 15 May, 2014 [facility] [address] [id number] [address] [place] [address], [place] [address] May, [facility] [address] [id number] [address] [place] [address], [place] [address] May, [facility] [address] [id number] [address] [place] [address], [place] [address] May, [facility] [address] [id number] [address] [place] [address], [place] [address] May, [facility] [address] [id number] [address] [place] [address], [place] [address] May, [facility] [address] [id number] [address] [place] [address], [place] [address] May, [facility] [address] [id number] [address] [place] [address], [place] [address] May, [facility] [address] [id number] [address] [place] [address], [place] [address] May, [facility] [address] [id number] [address] [place] [address], [place] [address] May, [facility] [address] [id number] [address] [place] [address], [place] [address] May, [facility] [address] [id number] [address] [place] [address], [place] [address] May, [facility] [address] [id number] [address] [place] [address], [place] [address] May, [facility] [address] [id number] [address] [place] [address], [place] [address] 05 May, 2014 [facility] [address] [id number] [address] [place] [address], [place] [address] May, [facility] [address] [id number] [address] [place] [address], [place] [address] May, [facility] [address] [id number] [address] [place] [address], [place] [address] May, [facility] [address] [id number] [address] [place] [address], [place] [address] Apr, [facility] [address] [id number] [address] [place] [address], [place] [address] Apr, [facility] [address] [id number] [address] [place] [address], [place] [address] Apr, [facility] [address] [id number] [address] [place] [address], [place] [address] Apr, [facility] [address] [id number] [address] [place] [address], [place] [address] Apr, [facility] [address] [id number] [address] [place] [address], [place] [address] Apr, [facility] [address] [id number] [address] [place] [address], [place] [address] Apr, [facility] [address] [id number] [address] [place] [address], [place] [address] Apr, [facility] [address] [id number] [address] [place] [address], [place] [address] Apr, [facility] [address] [id number] [address] [place] [address], [place] [address] Apr, [facility] [address] [id number] [address] [place] [address], [place] [address] Mar, [facility] [address] [id number] [address] [place] [address], [place] [address] Mar, [facility] [address] [id number] [address] [place] [address], [place] [address] 31 Mar, 2013 [facility] [address] [id number] [address] [place] [address], [place] [address] Mar, 2013 [facility] [address] [id number] [address] [place] [address], [place] [address] 30 Mar, 2014 [facility] [address] [id number] [address] [place] [address], [place] [address] 30 Mar, 2014 [facility] [address] [id number] [address] [place] [address], [place] [address] Mar, [facility] [address] [id number] [address] [place] [address], [place] [address] Mar, [facility] [address] [id number] [address] [place] [address], [place] [address] Mar, [facility] [address] [id number] [address] [place] [address], [place] [address] Mar, [facility] [address] [id number] [address] [place] [address], [place] [address] Mar, [facility] [address] [id number] [address] [place] [address], [place] [address] Mar, [facility] [address] [id number] [address] [place] [address], [place] [address] Mar, [facility] [address] [id number] [address] [place] [address], [place] [address] Mar, [facility] [address] [id number] [address] [place] [address], [place] [address] Mar, [facility] [address] [id number] [address] [place] [address], [place] [id number] Mar, [facility] [address] [id number] [address] [place] [address], [place] [id number] Mar, [facility] [address] [id number] [address] [place] [id number] Mar, [facility] [address] [id number] [address] [place] [address], [place] [id number] Mar, [facility] [address] [id number] [address] [place] [address], [place] [id number] Mar, [facility] [address] [id number] [address] [place] [address], [place] [id number] 05 Sep, 2013 [facility] [address] [id number] [address] [place] [address], [place] [id number] 05 Sep, 2013 [facility] [address] [id number] [address] [place] [address], [place] [id number] 04 Feb, 2013 [facility] [address] [id number] [address] [place] [address], [place] [id number] 04 Feb, 2013 [facility] [address] [id number] [address] [place] [address], [place] [id number] Feb, 2013 [facility] [address] [id number] [address] [place] [address], [place] [id number] Feb, 2013 [facility] [address] [id number] [address] [place] [address], [place] [id number] Feb, 2013 [facility] [address] [id number] [address] [place] [address], [place] [id number] Feb, 2013 [facility] [address] [id number] [address] [place] [address], [place] [id number] Feb, 2013 [facility] [address] [id number] [address] [place] [address], [place] [id number] Feb, 2013 [facility] [address] [id number] [address] [place] [address], [place] [id number] Jan, [facility] [address] [id number] [address] [place] [address], [place] [id number] Jan, [facility] [address] [id number] [address] [place] [address], [place] [address] Jan, [facility] [address] [id number] [facility] [place] [id number] Jan, [facility] [address] [id number] [facility] [place] [id number] Jan, [facility] [address] [id number] [facility] [place] [id number] Jan, [facility] [address] [id number] [address] [place] [address], [place] [id number] Jan, [facility] [address] [id number] [address] [place] [address], [place] [id number] Jan, [facility] [address] [id number] [address] [place] [address], [place] [id number] Jan, [facility] [address] [id number] [address] [place] [address], [place] [id number] Jan, [facility] [address] [id number] [address] [place] [address], [place] [id number] Jan, [facility] [address] [id number] [address] [place] [address], [place] [id number] Jan, [facility] [address] [id number] [address] [place] [address], [place] [id number] Dec, [facility] [address] [id number] [address] [place] [address], [place] [id number] Dec, [facility] [address] [id number] [address] [place] [address], [place] [id number] Dec, [facility] [address] [id number] [address] [place] [address], [place] [address] Dec, [facility] [address] [id number] [address] [place] [address], [place] [id number] Dec, [facility] [address] [id number] [address] [place] [address], [place] [id number] Dec, [facility] [address] [id number] [address] [place] [address], [place] [id number] Dec, [facility] [address] [id number] [address] [place] [address], [place] [id number] Dec, 2013 [facility] [address] [id number] [address] [place] [address], [place] [id number] Dec, [facility] [address] [id number] [address] [place] [address], [place] [id number] Dec, [facility] [address] [id number] [address] [place] [address], [place] [id number] Dec, [facility] [address] [id number] [address] [place] [address], [place] [address] Dec, [facility] [address] [id number] [address] [place] [address], [place] [address] Nov, [facility] [address] [id number] [address] [place] [address], [place] [address] Nov, [facility] [address] [id number] [address] [place] [address], [place] [address] Nov, [facility] [address] [id number] [address] [place] [address], [place] [address] Nov, [facility] [address] [id number] [address] [place] [address], [place] [id number] Nov, [facility] [address] [id number] [address] [place] [address], [place] [address] Nov, [facility] [address] [id number] [address] [place] [address], [place] [address] Nov, [facility] [address] [id number] [address] [place] [address], [place] [address] Nov, [facility] [address] [id number] [address] [place] [address], [place] [address] Nov, [facility] [address] [id number] [address] [place] [address], [place] [address] Nov, [facility] [address] [id number] [address] [place] [address], [place] [address] Nov, [facility] [address] [id number] [address] [place] [address], [place] [address] Nov, [facility] [address] [id number] [address] [place] [address], [place] [address] Nov, [facility] [address] [id number] [address] [place] [address], [place] [address] Nov, [facility] [address] [id number] [address] [place] [address], [place] [address] October, [facility] [address] [id number] [address] [place] [address], [place] [address] October, [facility] [address] [id number] [address] [place] [address], [place] [address] October, [facility] [address] [id number] [address] [place] [address], [place] [address] October, [facility] [address] [id number] [address] [place] [address], [place] [address] October, [facility] [address] [id number] [address] [place] [address], [place] [address] October, [facility] [address] [id number] [address] [place] [address], [place] [address] October, [facility] [address] [id number] [address] [place] [address], [place] [address] October, [facility] [address] [id number] [address] [place] [address], [place] [address] October, [facility] [address] [id number] [address] [place] [address], [place] [address] October, [facility] [address] [id number] [address] [place] [address], [place] [address] October, [facility] [address] [id number] [address] [place] [address], [place] [address] October, [facility] [address] [id number] [facility] [place] [address] Sep, [facility] [address] [id number] [facility] [place] [address] Sep, [facility] [address] [id number] [facility] [place] [address] Sep, [facility] [address] [id number] [address] [place] [address], [place] [address] Sep, [facility] [address] [id number] [address] [place] [address], [place] [address] Sep, [facility] [address] [id number] [address] [place] [address], [place] [address] Sep, [facility] [address] [id number] [address] [place] [address], [place] [address] Aug, [facility] [address] [id number] [address] [place] [address], [place] [address] Aug, [facility] [address] [id number] [address] [place] [address], [place] [address] Aug, [facility] [address] [id number] [address] [place] [address], [place] [address] Aug, [facility] [address] [id number] [address] [place] [address], [place] [address] Aug, [facility] [address] [id number] [address] [place] [address], [place] [address] Aug, [facility] [address] [id number] [address] [place] [address], [place] [address] Jul, [facility] [address] [id number] [address] [place] [address], [place] [address] Jul, [facility] [address] [id number] [address] [place] [address], [place] [address] Jul, [facility] [address] [id number] [address] [place] [address], [place] [address] Jul, [facility] [address] [id number] [address] [place] [address], [place] [address] Jul, [facility] [address] [id number] [address] [place] [address], [place] [address] Jul, [facility] [address] [id number] [address] [place] [address], [place] [address] Jul, [facility] [address] [id number] [address] [place] [address], [place] [address] Jul, [facility] [address] [id number] [address] [place] [address], [place] [address] Jul, [facility] [address] [id number] [address] [place] [address], [place] [address] Jul, [facility] [address] [id number] [address] [place] [address], [place] [address] Jun, [facility] [address] [id number] [address] [place] [address], [place] [address] Jun, [facility] [address] [id number] [address] [place] [address], [place] [address] Jun, [facility] [address] [id number] [address] [place] [address], [place] [address] Jun, [facility] [address] [id number] [address] [place] [address], [place] [address] Jun, [facility] [address] [id number] [address] [place] [address], [place] [address] Jun, [facility] [address] [id number] [address] [place] [address], [place] [address] Jun, [facility] [address] [id number] [address] [place] [address], [place] [address] Jun, [facility] [address] [id number] [address] [place] [address], [place] [address] May, [facility] [address] [id number] [address] [place] [address], [place] [address] May, [facility] [address] [id number] [address] [place] [address], [place] [address] May, [facility] [address] [id number] [address] [place] [address], [place] [address] May, [facility] [address] [id number] [address] [place] [address], [place] [address] May, [facility] [address] [id number] [address] [place] [address], [place] [address] May, [facility] [address] [id number] [address] [place] [address], [place] [address] May, [facility] [address] [id number] [address] [place] [address], [place] [address] May, [facility] [address] [id number] [address] [place] [address], [place] [address] Apr, [facility] [address] [id number] [address] [place] [address], [place] [address] Apr, [facility] [address] [id number] [address] [place] [address], [place] [address] Apr, [facility] [address] [id number] [address] [place] [address], [place] [address] Apr, [facility] [address] [id number] [address] [place] [address], [place] [address] Apr, [facility] [address] [id number] [address] [place] [address], [place] [address] Apr, [facility] [address] [id number] [address] [place] [address], [place] [address] Mar, [facility] [address] [id number] [address] [place] [address], [place] [address] Mar, [facility] [address] [id number] [address] [place] [address], [place] [address] Mar, [facility] [address] [id number] [address] [place] [address], [place] [address] Mar, [facility] [address] [id number] [address] [place] [address], [place] [phone] Mar, [facility] [address] [id number] [address] [place] [address], [place] [address] Mar, [facility] [address] [id number] [address] [place] [address], [place] [address] Mar, [facility] [address] [id number] [address] [place] [address], [place] [address] 30 Feb, 2013 [facility] [address] [id number] [address] [place] [address], [place] [address] 30 Feb, 2013 [facility] [address] [id number] [address] [place] [address], [place] [address] Feb, [facility] [address] [id number] [address] [place] [address], [place] [address] Feb, [facility] [address] [id number] [address] [place] [address], [place] [address] Feb, [facility] [address] [id number] [address] [place] [address], [place] [address] Feb, [facility] [address] [id number] [address] [place] [address], [place] [address] Jan, [facility] [address] [id number] [address] [place] [address], [place] [address] Jan, [facility] [address] [id number] [address] [place] [address], [place] [address] Jan, [facility] [address] [id number] [address] [place] [address], [place] [address] Jan, [facility] [address] [id number] [address] [place] [address], [place] [address] Jan, [facility] [address] [id number] [address] [place] [address], [place] [address] Jan, [facility] [address] [id number] [address] [place] [address], [place] [address] Jan, [facility] [address] [id number] [address] [place] [address], [place] [address] Jan, [facility] [address] [id number] [address] [place] [address], [place] [address] Jan, [facility] [address] [id number] [address] [place] [address], [place] [address] Dec, [facility] [address] [id number] [address] [place] [address], [place] [address] Dec, [facility] [address] [id number] [address] [place] [address], [place] [address] Dec, [facility] [address] [id number] [address] [place] [address], [place] [address] Dec, [facility] [address] [id number] [address] [place] [address], [place] [address] Dec, [facility] [address] [id number] [address] [place] [address], [place] [address] Dec, [facility] [address] [id number] [address] [place] [address], [place] [id number] Dec, [facility] [address] [id number] [address] [place] [address], [place] [phone] Dec, [facility] [address] [id number] [address] [place] [address], [place] [address] Dec, [facility] [address] [id number] [address] [place] [address], [place] [address] Dec, [facility] [address] [id number] [address] [place] [address], [place] [address] Dec, [facility] [address] [id number] [address] [place] [address], [place] [address] Dec, [facility] [address] [id number] [address] [place] [address], [place] [address] Dec, [facility] [address] [id number] [address] [place] [address], [place] [address] Nov, [facility] [address] [id number] [address] [place] [address], [place] [address] Nov, [facility] [address] [id number] [address] [place] [address], [place] [address] Nov, [facility] [address] [id number] [address] [place] [address], [place] [address] Nov, [facility] [address] [id number] [address] [place] [address], [place] [address] October, [facility] [address] [id number] [address] [place] [address], [place] [address] October, [facility] [address] [id number] [address] [place] [address], [place] [address] October, [facility] [address] [id number] [address] [place] [address], [place] [address] October, [facility] [address] [id number] [address] [place] [address], [place] [address] October, [facility] [address] [id number] [address] [place] [address], [place] [address] October, [facility] [address] [id number] [address] [place] [address], [place] [address] Sep, [facility] [address] [id number] [address] [place] [address], [place] [address] Sep, [facility] [address] [id number] [address] [place] [address], [place] [address] Sep, [facility] [address] [id number] [address] [place] [address], [place] [address] Sep, [facility] [address] [id number] [address] [place] [address], [place] [address] 19 Sep, 2012 [facility] [address] [id number] [address] [place] [address], [place] [address] 16 Sep, 2012 [facility] [address] [id number] [address] [place] [address], [place] [address] Sep, [facility] [address] [id number] [address] [place] [address], [place] [address] Sep, [facility] [address] [id number] [address] [place] [address], [place] [address] Sep, [facility] [address] [id number] [address] [place] [address], [place] [address] Sep, [facility] [address] [id number] [address] [place] [address], [place] [address] Sep, [facility] [address] [id number] [address] [place] [address], [place] [address] Aug, [facility] [address] [id number] [address] [place] [address], [place] [address] Aug, [facility] [address] [id number] [address] [place] [address], [place] [id number] 25 Aug, 2012 [facility] [address] [id number] [address] [place] [address], [place] [address] Aug, [facility] [address] [id number] [address] [place] [address], [place] [address] 19 Aug, 2012 [facility] [address] [id number] [address] [place] [address], [place] [address] 18 Aug, 2012 [facility] [address] [id number] [address] [place] [address], [place] [id number] 17 Aug, 2012 [facility] [address] [id number] [address] [place] [address], [place] [id number] 15 Aug, 2012 [facility] [address] [id number] [address] [place] [address], [place] [address] 15 Aug, 2012 [facility] [address] [id number] [address] [place] [address], [place] [address] Aug, [facility] [address] [id number] [address] [place] [address], [place] [address] Aug, [facility] [address] [id number] [address] [place] [address], [place] [address] Aug, [facility] [address] [id number] [address] [place] [address], [place] [address] Jul, [facility] [address] [id number] [address] [place] [address], [place] [address] Jul, [facility] [address] [id number] [address] [place] [address], [place] [address] Jul, [facility] [address] [id number] [address] [place] [address], [place] [address] Jul, [facility] [address] [id number] [address] [place] [address], [place] [address] Jul, [facility] [address] [id number] [address] [place] [address], [place] [address] Jul, [facility] [address] [id number] [address] [place] [address], [place] [address] Jul, [facility] [address] [id number] [address] [place] [address], [place] [address] Jul, [facility] [address] [id number] [address] [place] [address], [place] [address] Jul, [facility] [address] [id number] [address] [place] [address], [place] [address] Jul, [facility] [address] [id number] [address] [place] [address], [place] [address] May, [facility] [address] [id number] [place] [id number] May, [facility] [address] [id number] [address] [address] May, [facility] [address] [id number] [address] [place] [id number] May, [facility] [address] [id number] [address] [place] [id number] May, [facility] [address] [id number] [address] [place] [id number] Apr, [facility] [address] [id number] [place] [id number] Apr, [facility] [address] [id number] [address] [place] [id number] Apr, [facility] [address] [id number] [address] [place] [id number] Mar, [facility] [address] [id number] [place] [id number] Mar, [facility] [address] [id number] [address] [place] [id number] Mar, [facility] [address] [id number] [place] [id number] Feb, [facility] [address] [id number] [address] [place] [id number] Feb, [facility] [address] [id number] [address] [place] [id number] Feb, [facility] [address] [id number] [place] [id number] Feb, [facility] [address] [id number] [place] [id number] Feb, [facility] [address] [id number] [place] [id number] Jan, [facility] [address] [id number] [address] [place] [id number] Jan, [facility] [address] [id number] [place] [id number] Jan, [facility] [address] [id number] [place] [id number] Jan, [facility] [address] [id number] [place] [id number] Jan, [facility] [address] [facility] [id number] [place] [address] Jan, [facility] [address] [facility] [id number] [address] [place] [phone] Jan, [facility] [address] [facility] [id number] [address] [place] [phone] Aug, [facility] [address] [id number] [place] [id number] Aug, [facility] [address] [facility] [id number] [address] [place] [phone] Jul, [facility] [address] [facility] [id number] [address] [place] [id number] Jul, [facility] [address] [facility] [id number] [address] [place] [id number] Jul, [facility] [address] [id number] [place] [id number] Jul, 2011 [facility] [address] [facility] [id number] [address] [place] [id number] Jul, [facility] [address] [id number] [place] [id number] Jul, [facility] [address] [facility] [id number] [address] [place] [id number] Jul, [facility] [address] [id number] [place] [id number] Jul, [facility] [address] [id number] [place] [id number] Jul, [facility] [address] [id number] [place] [id number] Jul, [facility] [address] [facility] [id number] [address] [place] [id number] May, [facility] [address] [id number] [address] [place] [id number] May, [facility] [address] [id number] [address] [place] [phone] May, [facility] [address] [id number] [address] [place] [id number] Apr, [facility] [address] [id number] [address] [place] [id number] Jan, [facility] [address] [id number] [address] [place] [id number] Jan, [facility] [address] [id number] [address] [place] [id number] Dec, [facility] [address] [id number] [address] [place] [id number] Dec, [facility] [address] [id number] [address] [place] [phone] May, [facility] [address] [id number] [address] [place] [id number] Mar, [facility] [address] [id number] [address] [place] [id number] Mar, [facility] [address] [id number] [address] [place] [id number] 14 Jan, 2009 IMMUNIZATIONS No Known Immunizations [...]
--- OUTSIDE RECORDS SUMMARY | 2020-01-28 13:17 | XMS REPORT ---
Author Author Heydi Candelario Doctor Organization [facility] Address Unknown Phone Unavailable Care Team Providers Care Field Court Researcher Name Role Phone Migration, Doctor Unavailable Unavailable PROBLEMS Type Condition ICD9-CM Code [id number] Code Onset Dates Condition S tatus SNOMED Code Problem Chronic pain syndrome G89.4 Active 935203382 Problem Sore throat J02.9 Active 90023538 3 Problem Choriocarcinoma C58 Active 1881 30205 Problem care home current use of anticoagulant Z79.01 Active 741641281 Problem History of venous thromboembolism V12.51 Active 845767421 Problem Cellulitis of unspecified part of limb L03.119 Active 299947859 Problem Gastroesophageal reflux disease without esophagitis K21.9 Active 329480905 Problem History of pulmonary embolism Z86.711 Active 912761858 Problem Pseudotumor cerebri G93.2 Active 02680596 Problem History of DVT (deep vein thrombosis) Z86.718 Active 519510564 ALLERGIES No Information ENCOUNTERS Encounter Location Date Diagnosis [place] [address] [place] [id number] [address] [place] [address] 14 Nov, 2019 Encounter for screening labo ratory testing for COVID-19 virus Z11.59 [place] [address] [place] [id number] [address] [place] [address] Apr, warp clamper (current) use of 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 Z79.01 [place] [id number] [facility] [id number] [address] [place] [address] Apr, care home current use of ant icoagulant Z79.01 [place] [address] [facility] [id number] [address] [place] [address] Apr, Cellulitis of unspecified pa rt of limb L03.119 ; Allergic contact dermatitis due to adhesives L23.1 and Chronic pain syndrome G89.4 [place] [address] [address] Apr, [facility] [address] [address] Apr, care home current use of ant icoagulant Z79.01 ; Cellulitis of unspecified part of limb L03.119 ; Chronic pain syndrome G89.4 and Anxiety F41.9 [place] [address] [address] Apr, [facility] [address] [address] Apr, [place] [address] [address] Mar, [place] [address] [address] Mar, [place] [address] [address] Mar, Sore throat J02.9 ; Gastroes ophageal reflux disease without esophagitis K21.9 ; Pseudotumor cerebri G93.2 ; Chronic pain syndrome G89.4 ; Choriocarcinoma C58 ; History of pulmonary embolism Z86.711 ; History of DVT (deep vein thrombosis) Z86.718 ; Anxiety F41.9 and Tachycardia R00.0 [place] [address] [place] [id number] [address] [place] [address] Feb, Anxiety 300.00 and Chronic p ain 338.29 [facility] [address] [place] [id number] [address] [place] [address] Feb, [facility] [address] [address] Feb, [facility] [address] [place] [id number] [address] [place] [address] Jan, warp clamper current use of ant icoagulant therapy V58.61 and Dysuria 788.1 [place] [address] [place] [id number] [address] [place] [address] Jan, Dysuria 788.1 [place] [address] [address] Jan, Anxiety 300.00 and Chronic p ain 338.29 [place] [address] [address] Jan, [place] [address] [address] Jan, [place] [address] [address] Jan, [place] [address] [address] Dec, Weakness 780.79 [place] [address] [address] Dec, warp clamper current use of ant icoagulant therapy V58.[address] [address] Dec, Palpitations 785.1 ; Tremor 781.0 ; Weakness 780.79 ; care home current use of anticoagulant therapy V58.61 and Yeast vaginitis 112.1 [place] [address] [place] [id number] [address] [place] [address] Dec, [place] [address] [address] Dec, Cervicalgia 723.1 ; Tachycar yoseph 785.0 ; Pseudotumor cerebri 348.2 and History of venous thromboembolism V12.51 [place] [address] [address] Nov, [place] [address] [place] [id number] [address] [place] [address] Nov, [place] [address] [place] [id number] [place] [address] 24 Nov, 2014 Tachycardia 785.0 ; Pseudotu mor cerebri 348.2 ; Anxiety 300.00 and History of venous thromboembolism V12.51 [facility] [address] [id number] [address] [place] [address] 19 Nov, 2014 [facility] [address] [id number] [address] [place] [address] 18 Nov, 2014 [facility] [address] [id number] [address] [place] [address] 16 Nov, 2014 [facility] [address] [id number] [address] [place] [address] Nov, [facility] [address] [facility] [id number] [address] [place] [address] Nov, [facility] [address] [facility] [id number] [address] [place] [address] Nov, [facility] [address] [id number] [address] [place] [address] Nov, [facility] [address] [facility] [id number] [address] [place] [address] October, [facility] [address] [facility] [id number] [address] [place] [address] October, [facility] [address] [facility] [id number] [address] [place] [address] October, Pain in thoracic spine 724.1 and Tachycardia 785.0 [facility] [address] [id number] [address] [place] [address] October, [facility] [address] [facility] [id number] [address] [place] [address] October, [facility] [address] [facility] [id number] [address] [place] [address] 14 Sep, 2014 [facility] [address] [facility] [id number] [address] [place] [address] Sep, [facility] [address] [id number] [address] [place] [address], [place] [address] Aug, [facility] [address] [id number] [address] [place] [address], [place] [address] Aug, [facility] [address] [id number] [address] [place] [address], [place] [address] Aug, [facility] [address] [id number] [address] [place] [address], [place] [address] Aug, [facility] [address] [id number] [address] [place] [address], [place] [address] Aug, [facility] [address] [id number] [address] [place] [address], [place] [address] Aug, [facility] [address] [id number] [address] [place] [address], [place] [address] Aug, [facility] [address] [id number] [address] [place] [address], [place] [address] Aug, [facility] [address] [id number] [address] [place] [address], [place] [address] Aug, [facility] [address] [id number] [address] [place] [address], [place] [address] Aug, [facility] [address] [id number] [address] [place] [address], [place] [address] Aug, [facility] [address] [id number] [address] [place] [address], [place] [address] Aug, [facility] [address] [id number] [address] [place] [address], [place] [address] Jul, [facility] [address] [id number] [address] [place] [address], [place] [address] Jul, [facility] [address] [id number] [address] [place] [address], [place] [address] Jul, [facility] [address] [id number] [address] [place] [address], [place] [address] 23 Jul, 2014 [facility] [address] [id number] [address] [place] [address], [place] [address] 23 Jul, 2014 [facility] [address] [id number] [address] [place] [address], [place] [address] 23 Jul, 2014 [facility] [address] [id number] [address] [place] [address], [place] [address] 23 Jul, 2014 [facility] [address] [id number] [address] [place] [address], [place] [address] 23 Jul, 2014 [facility] [address] [id number] [address] [place] [address], [place] [address] 20 Jul, 2014 [facility] [address] [id number] [address] [place] [address], [place] [address] 20 Jul, 2014 [facility] [address] [id number] [address] [place] [address] 19 Jul, 2014 [facility] [address] [id number] [address] [place] [address], [place] [address] 19 Jul, 2014 [facility] [address] [id number] [address] [place] [address] 17 Jul, 2014 [facility] [address] [id number] [address] [place] [address] 17 Jul, 2014 [facility] [address] [id number] [address] [place] [address] 16 Jul, 2014 [facility] [address] [id number] [address] [place] [address], [place] [address] 16 Jul, 2014 [facility] [address] [id number] [address] [place] [address] 16 Jul, 2014 [facility] [address] [id number] [address] [place] [address] 16 Jul, 2014 [facility] [address] [id number] [address] [place] [address], [place] [address] 13 Jul, 2014 [facility] [address] [id number] [address] [place] [address], [place] [address] Jul, 2014 [facility] [address] [id number] [address] [place] [address], [place] [address] Jul, 2014 [facility] [address] [id number] [address] [place] [address], [place] [address] Jul, 2014 [facility] [address] [id number] [address] [place] [address], [place] [address] Jul, 2014 [facility] [address] [id number] [address] [place] [address], [place] [address] Jul, [facility] [address] [id number] [address] [place] [address], [place] [address] Jul, 2014 [facility] [address] [id number] [address] [place] [address], [place] [address] Jul, [facility] [address] [id number] [address] [place] [address], [place] [address] Jul, [facility] [address] [id number] [address] [place] [address], [place] [address] Jul, [facility] [address] [id number] [address] [place] [address] Jul, [facility] [address] [id number] [address] [place] [address] Jul, [facility] [address] [id number] [address] [place] [address], [place] [address] Jun, [facility] [address] [id number] [address] [place] [address] Jun, [facility] [address] [id number] [address] [place] [address] Jun, [facility] [address] [id number] [address] [place] [address] Jun, [facility] [address] [id number] [address] [place] [address], [place] [address] Jun, [facility] [address] [id number] [address] [place] [address], [place] [address] Jun, [facility] [address] [id number] [address] [place] [address], [place] [address] Jun, [facility] [address] [id number] [address] [place] [address], [place] [address] Jun, [facility] [address] [id number] [address] [place] [address], [place] [address] Jun, [facility] [address] [id number] [address] [place] [address], [place] [address] Jun, [facility] [address] [id number] [address] [place] [address], [place] [address] Jun, [facility] [address] [id number] [address] [place] [address], [place] [address] Jun, [facility] [address] [id number] [address] [place] [address], [place] [address] Jun, [facility] [address] [id number] [address] [place] [address], [place] [address] Jun, [facility] [address] [id number] [address] [place] [address], [place] [address] Jun, [facility] [address] [id number] [address] [place] [address], [place] [address] Jun, [facility] [address] [id number] [address] [place] [address], [place] [address] Jun, [facility] [address] [id number] [address] [place] [address], [place] [address] Jun, [facility] [address] [id number] [address] [place] [address], [place] [address] Jun, [facility] [address] [id number] [address] [place] [address], [place] [address] Jun, [facility] [address] [id number] [address] [place] [address], [place] [address] May, [facility] [address] [id number] [address] [place] [address], [place] [address] May, [facility] [address] [id number] [address] [place] [address], [place] [address] May, [facility] [address] [id number] [address] [place] [address], [place] [address] May, [facility] [address] [id number] [address] [place] [address], [place] [address] May, [facility] [address] [id number] [address] [place] [address], [place] [address] May, [facility] [address] [id number] [address] [place] [address], [place] [address] May, [facility] [address] [id number] [address] [place] [address], [place] [address] May, [facility] [address] [id number] [address] [place] [address], [place] [address] May, [facility] [address] [id number] [address] [place] [address], [place] [address] May, [facility] [address] [id number] [address] [place] [address], [place] [address] May, [facility] [address] [id number] [address] [place] [address], [place] [address] 18 May, 2014 [facility] [address] [id number] [address] [place] [address], [place] [address] 18 May, 2014 [facility] [address] [id number] [address] [place] [address], [place] [address] 17 May, 2014 [facility] [address] [id number] [address] [place] [address], [place] [address] 16 May, 2014 [facility] [address] [id number] [facility] [place] [address] 16 May, 2014 [facility] [address] [id number] [facility] [place] [address] 15 May, 2014 [facility] [address] [id number] [address] [place] [address], [place] [address] 15 May, 2014 [facility] [address] [id number] [address] [place] [address], [place] [address] May, [facility] [address] [id number] [address] [place] [address], [place] [address] May, [facility] [address] [id number] [address] [place] [address], [place] [address] May, [facility] [address] [id number] [address] [place] [address], [place] [address] May, [facility] [address] [id number] [address] [place] [address], [place] [address] May, [facility] [address] [id number] [address] [place] [address], [place] [address] May, [facility] [address] [id number] [address] [place] [address], [place] [address] May, [facility] [address] [id number] [address] [place] [address], [place] [address] May, [facility] [address] [id number] [address] [place] [address], [place] [address] May, [facility] [address] [id number] [address] [place] [address], [place] [address] May, [facility] [address] [id number] [address] [place] [address], [place] [address] May, [facility] [address] [id number] [address] [place] [address], [place] [address] May, [facility] [address] [id number] [address] [place] [address], [place] [address] 05 May, 2014 [facility] [address] [id number] [address] [place] [address], [place] [address] May, [facility] [address] [id number] [address] [place] [address], [place] [address] May, [facility] [address] [id number] [address] [place] [address], [place] [address] May, [facility] [address] [id number] [address] [place] [address], [place] [address] Apr, [facility] [address] [id number] [address] [place] [address], [place] [address] Apr, [facility] [address] [id number] [address] [place] [address], [place] [address] Apr, [facility] [address] [id number] [address] [place] [address], [place] [address] Apr, [facility] [address] [id number] [address] [place] [address], [place] [address] Apr, [facility] [address] [id number] [address] [place] [address], [place] [address] Apr, [facility] [address] [id number] [address] [place] [address], [place] [address] Apr, [facility] [address] [id number] [address] [place] [address], [place] [address] Apr, [facility] [address] [id number] [address] [place] [address], [place] [address] Apr, [facility] [address] [id number] [address] [place] [address], [place] [address] Apr, [facility] [address] [id number] [address] [place] [address], [place] [address] Mar, [facility] [address] [id number] [address] [place] [address], [place] [address] Mar, [facility] [address] [id number] [address] [place] [address], [place] [address] 31 Mar, 2013 [facility] [address] [id number] [address] [place] [address], [place] [address] Mar, 2013 [facility] [address] [id number] [address] [place] [address], [place] [address] 30 Mar, 2014 [facility] [address] [id number] [address] [place] [address], [place] [address] 30 Mar, 2014 [facility] [address] [id number] [address] [place] [address], [place] [address] Mar, [facility] [address] [id number] [address] [place] [address], [place] [address] Mar, [facility] [address] [id number] [address] [place] [address], [place] [address] Mar, [facility] [address] [id number] [address] [place] [address], [place] [address] Mar, [facility] [address] [id number] [address] [place] [address], [place] [address] Mar, [facility] [address] [id number] [address] [place] [address], [place] [address] Mar, [facility] [address] [id number] [address] [place] [address], [place] [address] Mar, [facility] [address] [id number] [address] [place] [address], [place] [address] Mar, [facility] [address] [id number] [address] [place] [address], [place] [address] Mar, [facility] [address] [id number] [address] [place] [address], [place] [address] Mar, [facility] [address] [id number] [address] [place] [address], [place] [address] Mar, [facility] [address] [id number] [address] [place] [address] Mar, [facility] [address] [id number] [address] [place] [address], [place] [address] Mar, [facility] [address] [id number] [address] [place] [address], [place] [address] Mar, [facility] [address] [id number] [address] [place] [address], [place] [address] 05 Sep, 2013 [facility] [address] [id number] [address] [place] [address], [place] [address] 05 Sep, 2013 [facility] [address] [id number] [address] [place] [address], [place] [address] 04 Feb, 2013 [facility] [address] [id number] [address] [place] [address], [place] [address] 04 Feb, 2013 [facility] [address] [id number] [address] [place] [address], [place] [address] Feb, 2013 [facility] [address] [id number] [address] [place] [address], [place] [address] Feb, 2013 [facility] [address] [id number] [address] [place] [address], [place] [address] Feb, 2013 [facility] [address] [id number] [address] [place] [address], [place] [address] Feb, 2013 [facility] [address] [id number] [address] [place] [address], [place] [address] Feb, 2013 [facility] [address] [id number] [address] [place] [address], [place] [address] Feb, 2013 [facility] [address] [id number] [address] [place] [address], [place] [address] Jan, [facility] [address] [id number] [address] [place] [address], [place] [address] Jan, [facility] [address] [id number] [address] [place] [address], [place] [address] Jan, [facility] [address] [id number] [facility] [place] [address] Jan, [facility] [address] [id number] [facility] [place] [address] Jan, [facility] [address] [id number] [facility] [place] [address] Jan, [facility] [address] [id number] [address] [place] [address], [place] [address] Jan, [facility] [address] [id number] [address] [place] [address], [place] [address] Jan, [facility] [address] [id number] [address] [place] [address], [place] [address] Jan, [facility] [address] [id number] [address] [place] [address], [place] [address] Jan, [facility] [address] [id number] [address] [place] [address], [place] [address] Jan, [facility] [address] [id number] [address] [place] [address], [place] [address] Jan, [facility] [address] [address] [id number] [address] [place] [address], [place] [address] Dec, [facility] [address] [id number] [address] [place] [address], [place] [address] Dec, [facility] [address] [id number] [address] [place] [address], [place] [address] Dec, [facility] [address] [id number] [address] [place] [address], [place] [address] Dec, [facility] [address] [id number] [address] [place] [address], [place] [address] Dec, [facility] [address] [id number] [address] [place] [address], [place] [address] Dec, [facility] [address] [id number] [address] [place] [address], [place] [address] Dec, [facility] [address] [id number] [address] [place] [address], [place] [address] Dec, 2013 [facility] [address] [id number] [address] [place] [address], [place] [address] Dec, [facility] [address] [id number] [address] [place] [address], [place] [address] Dec, [facility] [address] [id number] [address] [place] [address], [place] [address] Dec, [facility] [address] [id number] [address] [place] [address], [place] [address] Dec, [facility] [address] [id number] [address] [place] [address], [place] [address] Nov, [facility] [address] [id number] [address] [place] [address], [place] [address] Nov, [facility] [address] [id number] [address] [place] [address], [place] [address] Nov, [facility] [address] [id number] [address] [place] [address], [place] [address] Nov, [facility] [address] [id number] [address] [place] [address], [place] [address] Nov, [facility] [address] [id number] [address] [place] [address], [place] [address] Nov, [facility] [address] [id number] [address] [place] [address], [place] [address] Nov, [facility] [address] [id number] [address] [place] [address], [place] [address] Nov, [facility] [address] [id number] [address] [place] [address], [place] [address] Nov, [facility] [address] [id number] [address] [place] [address], [place] [address] Nov, [facility] [address] [id number] [address] [place] [address], [place] [address] Nov, [facility] [address] [id number] [address] [place] [address], [place] [address] Nov, [facility] [address] [id number] [address] [place] [address], [place] [address] Nov, [facility] [address] [id number] [address] [place] [address], [place] [address] Nov, [facility] [address] [id number] [address] [place] [address], [place] [address] October, [facility] [address] [id number] [address] [place] [address], [place] [address] October, [facility] [address] [id number] [address] [place] [address], [place] [address] October, [facility] [address] [id number] [address] [place] [address], [place] [address] October, [facility] [address] [id number] [address] [place] [address], [place] [address] October, [facility] [address] [id number] [address] [place] [address], [place] [address] October, [facility] [address] [id number] [address] [place] [address], [place] [address] October, [facility] [address] [id number] [address] [place] [address], [place] [address] October, [facility] [address] [id number] [address] [place] [address], [place] [address] October, [facility] [address] [id number] [address] [place] [address], [place] [address] October, [facility] [address] [id number] [address] [place] [address], [place] [address] October, [facility] [address] [id number] [address] [place] [address], [place] [address] October, [facility] [address] [id number] [facility] [place] [address] Sep, [facility] [address] [id number] [facility] [place] [address] Sep, [facility] [address] [id number] [facility] [place] [address] Sep, [facility] [address] [id number] [address] [place] [address], [place] [address] Sep, [facility] [address] [id number] [address] [place] [address], [place] [address] Sep, [facility] [address] [id number] [address] [place] [address], [place] [address] Sep, [facility] [address] [id number] [address] [place] [address], [place] [address] Aug, [facility] [address] [id number] [address] [place] [address], [place] [address] Aug, [facility] [address] [id number] [address] [place] [address], [place] [address] Aug, [facility] [address] [id number] [address] [place] [address], [place] [address] Aug, [facility] [address] [id number] [address] [place] [address], [place] [address] Aug, [facility] [address] [id number] [address] [place] [address], [place] [address] Aug, [facility] [address] [id number] [address] [place] [address], [place] [address] Jul, [facility] [address] [id number] [address] [place] [address], [place] [address] Jul, [facility] [address] [id number] [address] [place] [address], [place] [address] Jul, [facility] [address] [id number] [address] [place] [address], [place] [address] Jul, [facility] [address] [id number] [address] [place] [address], [place] [address] Jul, [facility] [address] [id number] [address] [place] [address], [place] [address] Jul, [facility] [address] [id number] [address] [place] [address], [place] [address] Jul, [facility] [address] [id number] [address] [place] [address], [place] [address] Jul, [facility] [address] [id number] [address] [place] [address], [place] [address] Jul, [facility] [address] [id number] [address] [place] [address], [place] [address] Jul, [facility] [address] [id number] [address] [place] [address], [place] [address] Jun, [facility] [address] [id number] [address] [place] [address], [place] [address] Jun, [facility] [address] [id number] [address] [place] [address], [place] [address] Jun, [facility] [address] [id number] [address] [place] [address], [place] [address] Jun, [facility] [address] [id number] [address] [place] [address], [place] [address] Jun, [facility] [address] [id number] [address] [place] [address], [place] [address] Jun, [facility] [address] [id number] [address] [place] [address], [place] [address] Jun, [facility] [address] [id number] [address] [place] [address], [place] [address] Jun, [facility] [address] [id number] [address] [place] [address], [place] [address] May, [facility] [address] [id number] [address] [place] [address], [place] [address] May, [facility] [address] [id number] [address] [place] [address], [place] [address] May, [facility] [address] [id number] [address] [place] [address], [place] [address] May, [facility] [address] [id number] [address] [place] [address], [place] [address] May, [facility] [address] [id number] [address] [place] [address], [place] [address] May, [facility] [address] [id number] [address] [place] [address], [place] [address] May, [facility] [address] [id number] [address] [place] [address], [place] [address] May, [facility] [address] [id number] [address] [place] [address], [place] [address] Apr, [facility] [address] [id number] [address] [place] [address], [place] [address] Apr, [facility] [address] [id number] [address] [place] [address], [place] [address] Apr, [facility] [address] [id number] [address] [place] [address], [place] [address] Apr, [facility] [address] [id number] [address] [place] [address], [place] [address] Apr, [facility] [address] [id number] [address] [place] [address], [place] [address] Apr, [facility] [address] [id number] [address] [place] [address], [place] [address] Mar, [facility] [address] [id number] [address] [place] [address], [place] [address] Mar, [facility] [address] [id number] [address] [place] [address], [place] [address] Mar, [facility] [address] [id number] [address] [place] [address], [place] [address] Mar, [facility] [address] [id number] [address] [place] [address], [place] [address] Mar, [facility] [address] [id number] [address] [place] [address], [place] [address] Mar, [facility] [address] [id number] [address] [place] [address], [place] [address] Mar, [facility] [address] [id number] [address] [place] [address], [place] [address] 30 Feb, 2013 [facility] [address] [id number] [address] [place] [address], [place] [address] 30 Feb, 2013 [facility] [address] [id number] [address] [place] [address], [place] [address] Feb, [facility] [address] [id number] [address] [place] [address], [place] [address] Feb, [facility] [address] [id number] [address] [place] [address], [place] [address] Feb, [facility] [address] [id number] [address] [place] [address], [place] [address] Feb, [facility] [address] [id number] [address] [place] [address], [place] [address] Jan, [facility] [address] [id number] [address] [place] [address], [place] [address] Jan, [facility] [address] [id number] [address] [place] [address], [place] [address] Jan, [facility] [address] [id number] [address] [place] [address], [place] [address] Jan, [facility] [address] [id number] [address] [place] [address], [place] [address] Jan, [facility] [address] [id number] [address] [place] [address], [place] [address] Jan, [facility] [address] [id number] [address] [place] [address], [place] [address] Jan, [facility] [address] [id number] [address] [place] [address], [place] [address] Jan, [facility] [address] [id number] [address] [place] [address], [place] [address] Jan, [facility] [address] [id number] [address] [place] [address], [place] [address] Dec, [facility] [address] [id number] [address] [place] [address], [place] [address] Dec, [facility] [address] [id number] [address] [place] [address], [place] [address] Dec, [facility] [address] [id number] [address] [place] [address], [place] [address] Dec, [facility] [address] [id number] [address] [place] [address], [place] [address] Dec, [facility] [address] [id number] [address] [place] [address], [place] [address] Dec, [facility] [address] [id number] [address] [place] [address], [place] [address] Dec, [facility] [address] [id number] [address] [place] [address], [place] [address] Dec, [facility] [address] [id number] [address] [place] [address], [place] [address] Dec, [facility] [address] [id number] [address] [place] [address], [place] [address] Dec, [facility] [address] [id number] [address] [place] [address], [place] [address] Dec, [facility] [address] [id number] [address] [place] [address], [place] [address] Dec, [facility] [address] [id number] [address] [place] [address], [place] [address] Dec, [facility] [address] [id number] [address] [place] [address], [place] [address] Nov, [facility] [address] [id number] [address] [place] [address], [place] [address] Nov, [facility] [address] [id number] [address] [place] [address], [place] [address] Nov, [facility] [address] [id number] [address] [place] [address], [place] [address] Nov, [facility] [address] [id number] [address] [place] [address], [place] [address] October, [facility] [address] [id number] [address] [place] [address], [place] [address] October, [facility] [address] [id number] [address] [place] [address], [place] [address] October, [facility] [address] [id number] [address] [place] [address], [place] [address] October, [facility] [address] [id number] [address] [place] [address], [place] [address] October, [facility] [address] [id number] [address] [place] [address], [place] [address] October, [facility] [address] [id number] [address] [place] [address], [place] [address] Sep, [facility] [address] [id number] [address] [place] [address], [place] [address] Sep, [facility] [address] [id number] [address] [place] [address], [place] [address] Sep, [facility] [address] [id number] [address] [place] [address], [place] [address] Sep, [facility] [address] [id number] [address] [place] [address], [place] [address] 19 Sep, 2012 [facility] [address] [id number] [address] [place] [address], [place] [address] 16 Sep, 2012 [facility] [address] [id number] [address] [place] [address], [place] [address] Sep, [facility] [address] [id number] [address] [place] [address], [place] [address] Sep, [facility] [address] [id number] [address] [place] [address], [place] [address] Sep, [facility] [address] [id number] [address] [place] [address], [place] [address] Sep, [facility] [address] [id number] [address] [place] [address], [place] [address] Sep, [facility] [address] [id number] [address] [place] [address], [place] [address] Aug, [facility] [address] [id number] [address] [place] [address], [place] [address] Aug, [facility] [address] [id number] [address] [place] [address], [place] [address] 25 Aug, 2012 [facility] [address] [id number] [address] [place] [address], [place] [address] Aug, [facility] [address] [id number] [address] [place] [address], [place] [address] 19 Aug, 2012 [facility] [address] [id number] [address] [place] [address], [place] [address] 18 Aug, 2012 [facility] [address] [id number] [address] [place] [address], [place] [address] 17 Aug, 2012 [facility] [address] [id number] [address] [place] [address], [place] [address] 15 Aug, 2012 [facility] [address] [id number] [address] [place] [address], [place] [address] 15 Aug, 2012 [facility] [address] [id number] [address] [place] [address], [place] [address] Aug, [facility] [address] [id number] [address] [place] [address], [place] [address] Aug, [facility] [address] [id number] [address] [place] [address], [place] [address] Aug, [facility] [address] [id number] [address] [place] [address], [place] [address] Jul, [facility] [address] [id number] [address] [place] [address], [place] [address] Jul, [facility] [address] [id number] [address] [place] [address], [place] [address] Jul, [facility] [address] [id number] [address] [place] [address], [place] [address] Jul, [facility] [address] [id number] [address] [place] [address], [place] [address] Jul, [facility] [address] [id number] [address] [place] [address], [place] [address] Jul, [facility] [address] [id number] [address] [place] [address], [place] [address] Jul, [facility] [address] [id number] [address] [place] [address], [place] [address] Jul, [facility] [address] [id number] [address] [place] [address], [place] [address] Jul, [facility] [address] [id number] [address] [place] [address], [place] [address] Jul, [facility] [address] [id number] [address] [place] [address], [place] [address] May, [facility] [address] [id number] [place] [id number] May, [facility] [address] [id number] [address] [address] May, [facility] [address] [id number] [address] [place] [address] May, [facility] [address] [id number] [address] [place] [address] May, [facility] [address] [id number] [address] [place] [address] Apr, [facility] [place] [address] [id number] [place] [id number] Apr, [facility] [address] [id number] [address] [place] [id number] Apr, [facility] [address] [id number] [address] [place] [id number] Mar, [facility] [address] [id number] [place] [id number] Mar, [facility] [address] [id number] [address] [place] [id number] Mar, [facility] [address] [id number] [place] [id number] Feb, [facility] [address] [id number] [address] [place] [id number] Feb, [facility] [address] [id number] [address] [place] [id number] Feb, [facility] [address] [id number] [place] [id number] Feb, [facility] [address] [id number] [place] [id number] Feb, [facility] [place] [address] [id number] [place] [id number] Jan, [facility] [address] [id number] [address] [place] [address] Jan, [facility] [place] [address] [id number] [place] [id number] Jan, [facility] [address] [id number] [place] [id number] Jan, [facility] [place] [address] [id number] [place] [id number] Jan, [facility] [address] [facility] [id number] [address] [address] Jan, [facility] [address] [facility] [id number] [address] [place] [id number] Jan, [facility] [address] [facility] [id number] [address] [place] [id number] Aug, [facility] [address] [id number] [place] [id number] Aug, [facility] [address] [facility] [id number] [address] [place] [id number] Jul, [facility] [address] [facility] [id number] [address] [place] [id number] Jul, [facility] [address] [facility] [id number] [address] [place] [id number] Jul, [facility] [address] [id number] [place] [id number] Jul, 2011 [facility] [address] [facility] [id number] [address] [place] [id number] Jul, [facility] [address] [id number] [place] [id number] Jul, [facility] [address] [facility] [id number] [address] [place] [id number] Jul, [facility] [address] [id number] [place] [id number] Jul, [facility] [address] [id number] [place] [id number] Jul, [facility] [address] [id number] [place] [id number] Jul, [facility] [address] [facility] [id number] [address] [place] [id number] May, [facility] [address] [id number] [address] [place] [id number] May, [facility] [address] [id number] [address] [place] [id number] May, [facility] [address] [id number] [address] [place] [id number] Apr, [facility] [address] [id number] [address] [place] [id number] Jan, [facility] [address] [id number] [address] [place] [id number] Jan, [facility] [address] [id number] [address] [place] [id number] Dec, [facility] [address] [id number] [address] [place] [id number] Dec, [facility] [address] [id number] [address] [place] [id number] May, [facility] [address] [id number] [address] [place] [id number] Mar, [facility] [address] [id number] [address] [place] [id number] Mar, [facility] [address] [id number] [address] [place] [id number] 14 Jan, 2009 IMMUNIZATIONS No Known Immunizations [...]
--- OUTSIDE RECORDS SUMMARY | 2020-01-28 13:17 | XMS REPORT ---
Author Author Heydi Candelario Doctor Organization [facility] Address Unknown Phone Unavailable Care Team Providers Care Breast Splitter Name Role Phone Migration, Doctor Unavailable Unavailable PROBLEMS Type Condition ICD9-CM Code [id number] Code Onset Dates Condition S tatus SNOMED Code Problem Chronic pain syndrome G89.4 Active 829184925 Problem Sore throat J02.9 Active 67689810 3 Problem Choriocarcinoma C58 Active 1881 55672 Problem [facility] current use of anticoagulant Z79.01 Active 923090110 Problem History of venous thromboembolism V12.51 Active 227942868 Problem Cellulitis of unspecified part of limb L03.119 Active 480666588 Problem Gastroesophageal reflux disease without esophagitis K21.9 Active 417468028 Problem History of pulmonary embolism Z86.711 Active 384329290 Problem Pseudotumor cerebri G93.2 Active 01789075 Problem History of DVT (deep vein thrombosis) Z86.718 Active 803689795 ALLERGIES No Information ENCOUNTERS Encounter Location Date Diagnosis [place] [address] [place] [id number] [address] [place] [address] 14 Nov, 2019 Encounter for screening labo ratory testing for COVID-19 virus Z11.59 [place] [address] [place] [id number] [address] [place] [address] 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 [id number] [address] [place] [address] Apr, [facility] current use of ant icoagulant Z79.01 [place] [address] [facility] [id number] [address] [place] [address] Apr, Cellulitis of unspecified pa rt of limb L03.119 ; Allergic contact dermatitis due to adhesives L23.1 and Chronic pain syndrome G89.4 [place] [address] [address] Apr, [facility] [address] [address] Apr, [facility] current use of ant icoagulant Z79.01 ; Cellulitis of unspecified part of limb L03.119 ; Chronic pain syndrome G89.4 and Anxiety F41.9 [place] [address] [address] Apr, [facility] [address] [address] Apr, [place] [address] [address] Mar, [place] [address] [address] Mar, [place] [address] [address] Mar, Sore throat J02.9 ; Gastroes ophageal reflux disease without esophagitis K21.9 ; Pseudotumor cerebri G93.2 ; Chronic pain syndrome G89.4 ; Choriocarcinoma C58 ; History of pulmonary embolism Z86.711 ; History of DVT (deep vein thrombosis) Z86.718 ; Anxiety F41.9 and Tachycardia R00.0 [place] [address] [place] [id number] [address] [place] [address] Feb, Anxiety 300.00 and Chronic p ain 338.29 [facility] [address] [place] [id number] [address] [place] [address] Feb, [facility] [address] [address] Feb, [facility] [address] [place] [id number] [address] [place] [address] Jan, 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 V58.61 and Dysuria 788.1 [place] [address] [place] [id number] [address] [place] [address] Jan, Dysuria 788.1 [place] [address] [address] Jan, Anxiety 300.00 and Chronic p ain 338.29 [place] [address] [address] Jan, [place] [address] [address] Jan, [place] [address] [address] Jan, [place] [address] [address] Dec, Weakness 780.79 [place] [address] [address] Dec, 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 V58.[address] [address] Dec, Palpitations 785.1 ; Tremor 781.0 ; Weakness 780.79 ; [facility] current use of anticoagulant therapy V58.61 and Yeast vaginitis 112.1 [place] [address] [place] [id number] [address] [place] [address] Dec, [place] [address] [address] Dec, Cervicalgia 723.1 ; Tachycar yoseph 785.0 ; Pseudotumor cerebri 348.2 and History of venous thromboembolism V12.51 [place] [address] [address] Nov, [place] [address] [place] [id number] [address] [place] [address] Nov, [place] [address] [place] [id number] [place] [address] 24 Nov, 2014 Tachycardia 785.0 ; Pseudotu mor cerebri 348.2 ; Anxiety 300.00 and History of venous thromboembolism V12.51 [facility] [address] [id number] [address] [place] [address] 19 Nov, 2014 [facility] [address] [id number] [address] [place] [address] 18 Nov, 2014 [facility] [address] [id number] [address] [place] [address] 16 Nov, 2014 [facility] [address] [id number] [address] [place] [address] Nov, [facility] [address] [facility] [id number] [address] [place] [address] Nov, [facility] [address] [facility] [id number] [address] [place] [address] Nov, [facility] [address] [id number] [address] [place] [address] Nov, [facility] [address] [facility] [id number] [address] [place] [address] October, [facility] [address] [facility] [id number] [address] [place] [address] October, [facility] [address] [facility] [id number] [address] [place] [address] October, Pain in thoracic spine 724.1 and Tachycardia 785.0 [facility] [address] [id number] [address] [place] [address] October, [facility] [address] [facility] [id number] [address] [place] [address] October, [facility] [address] [facility] [id number] [address] [place] [address] 14 Sep, 2014 [facility] [address] [facility] [id number] [address] [place] [address] Sep, [facility] [address] [id number] [address] [place] [address], [place] [address] Aug, [facility] [address] [id number] [address] [place] [address], [place] [address] Aug, [facility] [address] [id number] [address] [place] [address], [place] [address] Aug, [facility] [address] [id number] [address] [place] [address], [place] [address] Aug, [facility] [address] [id number] [address] [place] [address], [place] [address] Aug, [facility] [address] [id number] [address] [place] [address], [place] [address] Aug, [facility] [address] [id number] [address] [place] [address], [place] [address] Aug, [facility] [address] [id number] [address] [place] [address], [place] [address] Aug, [facility] [address] [id number] [address] [place] [address], [place] [address] Aug, [facility] [address] [id number] [address] [place] [address], [place] [address] Aug, [facility] [address] [id number] [address] [place] [address], [place] [address] Aug, [facility] [address] [id number] [address] [place] [address], [place] [address] Aug, [facility] [address] [id number] [address] [place] [address], [place] [address] Jul, [facility] [address] [id number] [address] [place] [address], [place] [address] Jul, [facility] [address] [id number] [address] [place] [address], [place] [address] Jul, [facility] [address] [id number] [address] [place] [address], [place] [address] 23 Jul, 2014 [facility] [address] [id number] [address] [place] [address], [place] [address] 23 Jul, 2014 [facility] [address] [id number] [address] [place] [address], [place] [address] 23 Jul, 2014 [facility] [address] [id number] [address] [place] [address], [place] [address] 23 Jul, 2014 [facility] [address] [id number] [address] [place] [address], [place] [address] 23 Jul, 2014 [facility] [address] [id number] [address] [place] [address], [place] [address] 20 Jul, 2014 [facility] [address] [id number] [address] [place] [address], [place] [address] 20 Jul, 2014 [facility] [address] [id number] [address] [place] [address] 19 Jul, 2014 [facility] [address] [id number] [address] [place] [address], [place] [address] 19 Jul, 2014 [facility] [address] [id number] [address] [place] [address] 17 Jul, 2014 [facility] [address] [id number] [address] [place] [address] 17 Jul, 2014 [facility] [address] [id number] [address] [place] [address] 16 Jul, 2014 [facility] [address] [id number] [address] [place] [address], [place] [address] 16 Jul, 2014 [facility] [address] [id number] [address] [place] [address] 16 Jul, 2014 [facility] [address] [id number] [address] [place] [address] 16 Jul, 2014 [facility] [address] [id number] [address] [place] [address], [place] [address] 13 Jul, 2014 [facility] [address] [id number] [address] [place] [address], [place] [address] Jul, 2014 [facility] [address] [id number] [address] [place] [address], [place] [address] Jul, 2014 [facility] [address] [id number] [address] [place] [address], [place] [address] Jul, 2014 [facility] [address] [id number] [address] [place] [address], [place] [address] Jul, 2014 [facility] [address] [id number] [address] [place] [address], [place] [address] Jul, [facility] [address] [id number] [address] [place] [address], [place] [address] Jul, 2014 [facility] [address] [id number] [address] [place] [address], [place] [address] Jul, [facility] [address] [id number] [address] [place] [address], [place] [address] Jul, [facility] [address] [id number] [address] [place] [address], [place] [address] Jul, [facility] [address] [id number] [address] [place] [address] Jul, [facility] [address] [id number] [address] [place] [address] Jul, [facility] [address] [id number] [address] [place] [address], [place] [address] Jun, [facility] [address] [id number] [address] [place] [address] Jun, [facility] [address] [id number] [address] [place] [address] Jun, [facility] [address] [id number] [address] [place] [address] Jun, [facility] [address] [id number] [address] [place] [address], [place] [address] Jun, [facility] [address] [id number] [address] [place] [address], [place] [address] Jun, [facility] [address] [id number] [address] [place] [address], [place] [address] Jun, [facility] [address] [id number] [address] [place] [address], [place] [address] Jun, [facility] [address] [id number] [address] [place] [address], [place] [address] Jun, [facility] [address] [id number] [address] [place] [address], [place] [address] Jun, [facility] [address] [id number] [address] [place] [address], [place] [address] Jun, [facility] [address] [id number] [address] [place] [address], [place] [address] Jun, [facility] [address] [id number] [address] [place] [address], [place] [address] Jun, [facility] [address] [id number] [address] [place] [address], [place] [address] Jun, [facility] [address] [id number] [address] [place] [address], [place] [address] Jun, [facility] [address] [id number] [address] [place] [address], [place] [address] Jun, [facility] [address] [id number] [address] [place] [address], [place] [address] Jun, [facility] [address] [id number] [address] [place] [address], [place] [address] Jun, [facility] [address] [id number] [address] [place] [address], [place] [address] Jun, [facility] [address] [id number] [address] [place] [address], [place] [address] Jun, [facility] [address] [id number] [address] [place] [address], [place] [address] May, [facility] [address] [id number] [address] [place] [address], [place] [address] May, [facility] [address] [id number] [address] [place] [address], [place] [address] May, [facility] [address] [id number] [address] [place] [address], [place] [address] May, [facility] [address] [id number] [address] [place] [address], [place] [address] May, [facility] [address] [id number] [address] [place] [address], [place] [address] May, [facility] [address] [id number] [address] [place] [address], [place] [address] May, [facility] [address] [id number] [address] [place] [address], [place] [address] May, [facility] [address] [id number] [address] [place] [address], [place] [address] May, [facility] [address] [id number] [address] [place] [address], [place] [address] May, [facility] [address] [id number] [address] [place] [address], [place] [address] May, [facility] [address] [id number] [address] [place] [address], [place] [address] 18 May, 2014 [facility] [address] [id number] [address] [place] [address], [place] [address] 18 May, 2014 [facility] [address] [id number] [address] [place] [address], [place] [address] 17 May, 2014 [facility] [address] [id number] [address] [place] [address], [place] [address] 16 May, 2014 [facility] [address] [id number] [facility] [address] 16 May, 2014 [facility] [address] [id number] [facility] [address] 15 May, 2014 [facility] [address] [id number] [address] [place] [address], [place] [address] 15 May, 2014 [facility] [address] [id number] [address] [place] [address], [place] [address] May, [facility] [address] [id number] [address] [place] [address], [place] [address] May, [facility] [address] [id number] [address] [place] [address], [place] [address] May, [facility] [address] [id number] [address] [place] [address], [place] [address] May, [facility] [address] [id number] [address] [place] [address], [place] [address] May, [facility] [address] [id number] [address] [place] [address], [place] [address] May, [facility] [address] [id number] [address] [place] [address], [place] [address] May, [facility] [address] [id number] [address] [place] [address], [place] [address] May, [facility] [address] [id number] [address] [place] [address], [place] [address] May, [facility] [address] [id number] [address] [place] [address], [place] [address] May, [facility] [address] [id number] [address] [place] [address], [place] [address] May, [facility] [address] [id number] [address] [place] [address], [place] [address] May, [facility] [address] [id number] [address] [place] [address], [place] [address] 05 May, 2014 [facility] [address] [id number] [address] [place] [address], [place] [address] May, [facility] [address] [id number] [address] [place] [address], [place] [address] May, [facility] [address] [id number] [address] [place] [address], [place] [address] May, [facility] [address] [id number] [address] [place] [address], [place] [address] Apr, [facility] [address] [id number] [address] [place] [address], [place] [address] Apr, [facility] [address] [id number] [address] [place] [address], [place] [address] Apr, [facility] [address] [id number] [address] [place] [address], [place] [address] Apr, [facility] [address] [id number] [address] [place] [address], [place] [address] Apr, [facility] [address] [id number] [address] [place] [address], [place] [address] Apr, [facility] [address] [id number] [address] [place] [address], [place] [address] Apr, [facility] [address] [id number] [address] [place] [address], [place] [address] Apr, [facility] [address] [id number] [address] [place] [address], [place] [address] Apr, [facility] [address] [id number] [address] [place] [address], [place] [address] Apr, [facility] [address] [id number] [address] [place] [address], [place] [address] Mar, [facility] [address] [id number] [address] [place] [address], [place] [address] Mar, [facility] [address] [id number] [address] [place] [address], [place] [address] 31 Mar, 2013 [facility] [address] [id number] [address] [place] [address], [place] [address] Mar, 2013 [facility] [address] [id number] [address] [place] [address], [place] [address] 30 Mar, 2014 [facility] [address] [id number] [address] [place] [address], [place] [address] 30 Mar, 2014 [facility] [address] [id number] [address] [place] [address], [place] [address] Mar, [facility] [address] [id number] [address] [place] [address], [place] [address] Mar, [facility] [address] [id number] [address] [place] [address], [place] [address] Mar, [facility] [address] [id number] [address] [place] [address], [place] [address] Mar, [facility] [address] [id number] [address] [place] [address], [place] [address] Mar, [facility] [address] [id number] [address] [place] [address], [place] [address] Mar, [facility] [address] [id number] [address] [place] [address], [place] [address] Mar, [facility] [address] [id number] [address] [place] [address], [place] [address] Mar, [facility] [address] [id number] [address] [place] [address], [place] [address] Mar, [facility] [address] [id number] [address] [place] [address], [place] [address] Mar, [facility] [address] [id number] [address] [place] [address], [place] [address] Mar, [facility] [address] [id number] [address] [place] [address] Mar, [facility] [address] [id number] [address] [place] [address], [place] [address] Mar, [facility] [address] [id number] [address] [place] [address], [place] [address] Mar, [facility] [address] [id number] [address] [place] [address], [place] [address] 05 Sep, 2013 [facility] [address] [id number] [address] [place] [address], [place] [address] 05 Sep, 2013 [facility] [address] [id number] [address] [place] [address], [place] [address] 04 Feb, 2013 [facility] [address] [id number] [address] [place] [address], [place] [address] 04 Feb, 2013 [facility] [address] [id number] [address] [place] [address], [place] [address] Feb, 2013 [facility] [address] [id number] [address] [place] [address], [place] [address] Feb, 2013 [facility] [address] [id number] [address] [place] [address], [place] [address] Feb, 2013 [facility] [address] [id number] [address] [place] [address], [place] [address] Feb, 2013 [facility] [address] [id number] [address] [place] [address], [place] [address] Feb, 2013 [facility] [address] [id number] [address] [place] [address], [place] [address] Feb, 2013 [facility] [address] [id number] [address] [place] [address], [place] [address] Jan, [facility] [address] [id number] [address] [place] [address], [place] [address] Jan, [facility] [address] [id number] [address] [place] [address], [place] [address] Jan, [facility] [address] [id number] [facility] [address] Jan, [facility] [address] [id number] [facility] [address] Jan, [facility] [address] [id number] [facility] [address] Jan, [facility] [address] [id number] [address] [place] [address], [place] [address] Jan, [facility] [address] [id number] [address] [place] [address], [place] [address] Jan, [facility] [address] [id number] [address] [place] [address], [place] [address] Jan, [facility] [address] [id number] [address] [place] [address], [place] [address] Jan, [facility] [address] [id number] [address] [place] [address], [place] [address] Jan, [facility] [address] [id number] [address] [place] [address], [place] [address] Jan, [facility] [address] [id number] [address] [place] [address], [place] [address] Dec, [facility] [address] [id number] [address] [place] [address], [place] [address] Dec, [facility] [address] [id number] [address] [place] [address], [place] [address] Dec, [facility] [address] [id number] [address] [place] [address], [place] [address] Dec, [facility] [address] [id number] [address] [place] [address], [place] [address] Dec, [facility] [address] [id number] [address] [place] [address], [place] [address] Dec, [facility] [address] [id number] [address] [place] [address], [place] [address] Dec, [facility] [address] [id number] [address] [place] [address], [place] [address] Dec, 2013 [facility] [address] [id number] [address] [place] [address], [place] [address] Dec, [facility] [address] [id number] [address] [place] [address], [place] [address] Dec, [facility] [address] [id number] [address] [place] [address], [place] [address] Dec, [facility] [address] [id number] [address] [place] [address], [place] [address] Dec, [facility] [address] [id number] [address] [place] [address], [place] [address] Nov, [facility] [address] [id number] [address] [place] [address], [place] [address] Nov, [facility] [address] [id number] [address] [place] [address], [place] [address] Nov, [facility] [address] [id number] [address] [place] [address], [place] [address] Nov, [facility] [address] [id number] [address] [place] [address], [place] [address] Nov, [facility] [address] [id number] [address] [place] [address], [place] [address] Nov, [facility] [address] [id number] [address] [place] [address], [place] [address] Nov, [facility] [address] [id number] [address] [place] [address], [place] [address] Nov, [facility] [address] [id number] [address] [place] [address], [place] [address] Nov, [facility] [address] [id number] [address] [place] [address], [place] [address] Nov, [facility] [address] [id number] [address] [place] [address], [place] [address] Nov, [facility] [address] [id number] [address] [place] [address], [place] [address] Nov, [facility] [address] [id number] [address] [place] [address], [place] [address] Nov, [facility] [address] [id number] [address] [place] [address], [place] [address] Nov, [facility] [address] [id number] [address] [place] [address], [place] [address] October, [facility] [address] [id number] [address] [place] [address], [place] [address] October, [facility] [address] [id number] [address] [place] [address], [place] [address] October, [facility] [address] [id number] [address] [place] [address], [place] [address] October, [facility] [address] [id number] [address] [place] [address], [place] [address] October, [facility] [address] [id number] [address] [place] [address], [place] [address] October, [facility] [address] [id number] [address] [place] [address], [place] [address] October, [facility] [address] [id number] [address] [place] [address], [place] [address] October, [facility] [address] [id number] [address] [place] [address], [place] [address] October, [facility] [address] [id number] [address] [place] [address], [place] [address] October, [facility] [address] [id number] [address] [place] [address], [place] [address] October, [facility] [address] [id number] [address] [place] [address], [place] [address] October, [facility] [address] [id number] [facility] [address] Sep, [facility] [address] [id number] [facility] [address] Sep, [facility] [address] [id number] [facility] [address] Sep, [facility] [address] [id number] [address] [place] [address], [place] [address] Sep, [facility] [address] [id number] [address] [place] [address], [place] [address] Sep, [facility] [address] [id number] [address] [place] [address], [place] [address] Sep, [facility] [address] [id number] [address] [place] [address], [place] [address] Aug, [facility] [address] [id number] [address] [place] [address], [place] [address] Aug, [facility] [address] [id number] [address] [place] [address], [place] [address] Aug, [facility] [address] [id number] [address] [place] [address], [place] [address] Aug, [facility] [address] [id number] [address] [place] [address], [place] [address] Aug, [facility] [address] [id number] [address] [place] [address], [place] [address] Aug, [facility] [address] [id number] [address] [place] [address], [place] [address] Jul, [facility] [address] [id number] [address] [place] [address], [place] [address] Jul, [facility] [address] [id number] [address] [place] [address], [place] [address] Jul, [facility] [address] [id number] [address] [place] [address], [place] [address] Jul, [facility] [address] [id number] [address] [place] [address], [place] [address] Jul, [facility] [address] [id number] [address] [place] [address], [place] [address] Jul, [facility] [address] [id number] [address] [place] [address], [place] [address] Jul, [facility] [address] [id number] [address] [place] [address], [place] [address] Jul, [facility] [address] [id number] [address] [place] [address], [place] [address] Jul, [facility] [address] [id number] [address] [place] [address], [place] [address] Jul, [facility] [address] [id number] [address] [place] [address], [place] [address] Jun, [facility] [address] [id number] [address] [place] [address], [place] [address] Jun, [facility] [address] [id number] [address] [place] [address], [place] [address] Jun, [facility] [address] [id number] [address] [place] [address], [place] [address] Jun, [facility] [address] [id number] [address] [place] [address], [place] [address] Jun, [facility] [address] [id number] [address] [place] [address], [place] [address] Jun, [facility] [address] [id number] [address] [place] [address], [place] [address] Jun, [facility] [address] [id number] [address] [place] [address], [place] [address] Jun, [facility] [address] [id number] [address] [place] [address], [place] [address] May, [facility] [address] [id number] [address] [place] [address], [place] [address] May, [facility] [address] [id number] [address] [place] [address], [place] [address] May, [facility] [address] [id number] [address] [place] [address], [place] [address] May, [facility] [address] [id number] [address] [place] [address], [place] [address] May, [facility] [address] [id number] [address] [place] [address], [place] [address] May, [facility] [address] [id number] [address] [place] [address], [place] [address] May, [facility] [address] [id number] [address] [place] [address], [place] [address] May, [facility] [address] [id number] [address] [place] [address], [place] [address] Apr, [facility] [address] [id number] [address] [place] [address], [place] [address] Apr, [facility] [address] [id number] [address] [place] [address], [place] [address] Apr, [facility] [address] [id number] [address] [place] [address], [place] [address] Apr, [facility] [address] [id number] [address] [place] [address], [place] [address] Apr, [facility] [address] [id number] [address] [place] [address], [place] [address] Apr, [facility] [address] [id number] [address] [place] [address], [place] [address] Mar, [facility] [address] [id number] [address] [place] [address], [place] [address] Mar, [facility] [address] [id number] [address] [place] [address], [place] [address] Mar, [facility] [address] [id number] [address] [place] [address], [place] [address] Mar, [facility] [address] [id number] [address] [place] [address], [place] [address] Mar, [facility] [address] [id number] [address] [place] [address], [place] [address] Mar, [facility] [address] [id number] [address] [place] [address], [place] [address] Mar, [facility] [address] [id number] [address] [place] [address], [place] [address] 30 Feb, 2013 [facility] [address] [id number] [address] [place] [address], [place] [address] 30 Feb, 2013 [facility] [address] [id number] [address] [place] [address], [place] [address] Feb, [facility] [address] [id number] [address] [place] [address], [place] [address] Feb, [facility] [address] [id number] [address] [place] [address], [place] [address] Feb, [facility] [address] [id number] [address] [place] [address], [place] [address] Feb, [facility] [address] [id number] [address] [place] [address], [place] [address] Jan, [facility] [address] [id number] [address] [place] [address], [place] [address] Jan, [facility] [address] [id number] [address] [place] [address], [place] [address] Jan, [facility] [address] [id number] [address] [place] [address], [place] [address] Jan, [facility] [address] [id number] [address] [place] [address], [place] [address] Jan, [facility] [address] [id number] [address] [place] [address], [place] [address] Jan, [facility] [address] [id number] [address] [place] [address], [place] [address] Jan, [facility] [address] [id number] [address] [place] [address], [place] [address] Jan, [facility] [address] [id number] [address] [place] [address], [place] [address] Jan, [facility] [address] [id number] [address] [place] [address], [place] [address] Dec, [facility] [address] [id number] [address] [place] [address], [place] [address] Dec, [facility] [address] [id number] [address] [place] [address], [place] [address] Dec, [facility] [address] [id number] [address] [place] [address], [place] [address] Dec, [facility] [address] [id number] [address] [place] [address], [place] [address] Dec, [facility] [address] [id number] [address] [place] [address], [place] [address] Dec, [facility] [address] [id number] [address] [place] [address], [place] [address] Dec, [facility] [address] [id number] [address] [place] [address], [place] [address] Dec, [facility] [address] [id number] [address] [place] [address], [place] [address] Dec, [facility] [address] [id number] [address] [place] [address], [place] [address] Dec, [facility] [address] [id number] [address] [place] [address], [place] [address] Dec, [facility] [address] [id number] [address] [place] [address], [place] [address] Dec, [facility] [address] [id number] [address] [place] [address], [place] [address] Dec, [facility] [address] [id number] [address] [place] [address], [place] [address] Nov, [facility] [address] [id number] [address] [place] [address], [place] [address] Nov, [facility] [address] [id number] [address] [place] [address], [place] [address] Nov, [facility] [address] [id number] [address] [place] [address], [place] [address] Nov, [facility] [address] [id number] [address] [place] [address], [place] [address] October, [facility] [address] [id number] [address] [place] [address], [place] [address] October, [facility] [address] [id number] [address] [place] [address], [place] [address] October, [facility] [address] [id number] [address] [place] [address], [place] [address] October, [facility] [address] [id number] [address] [place] [address], [place] [address] October, [facility] [address] [id number] [address] [place] [address], [place] [address] October, [facility] [address] [id number] [address] [place] [address], [place] [address] Sep, [facility] [address] [id number] [address] [place] [address], [place] [address] Sep, [facility] [address] [id number] [address] [place] [address], [place] [address] Sep, [facility] [address] [id number] [address] [place] [address], [place] [address] Sep, [facility] [address] [id number] [address] [place] [address], [place] [address] 19 Sep, 2012 [facility] [address] [id number] [address] [place] [address], [place] [address] 16 Sep, 2012 [facility] [address] [id number] [address] [place] [address], [place] [address] Sep, [facility] [address] [id number] [address] [place] [address], [place] [address] Sep, [facility] [address] [id number] [address] [place] [address], [place] [address] Sep, [facility] [address] [id number] [address] [place] [address], [place] [address] Sep, [facility] [address] [id number] [address] [place] [address], [place] [address] Sep, [facility] [address] [id number] [address] [place] [address], [place] [address] Aug, [facility] [address] [id number] [address] [place] [address], [place] [address] Aug, [facility] [address] [id number] [address] [place] [address], [place] [address] 25 Aug, 2012 [facility] [address] [id number] [address] [place] [address], [place] [address] Aug, [facility] [address] [id number] [address] [place] [address], [place] [address] 19 Aug, 2012 [facility] [address] [id number] [address] [place] [address], [place] [address] 18 Aug, 2012 [facility] [address] [id number] [address] [place] [address], [place] [address] 17 Aug, 2012 [facility] [address] [id number] [address] [place] [address], [place] [address] 15 Aug, 2012 [facility] [address] [id number] [address] [place] [address], [place] [address] 15 Aug, 2012 [facility] [address] [id number] [address] [place] [address], [place] [address] Aug, [facility] [address] [id number] [address] [place] [address], [place] [address] Aug, [facility] [address] [id number] [address] [place] [address], [place] [address] Aug, [facility] [address] [id number] [address] [place] [address], [place] [address] Jul, [facility] [address] [id number] [address] [place] [address], [place] [address] Jul, [facility] [address] [id number] [address] [place] [address], [place] [address] Jul, [facility] [address] [id number] [address] [place] [address], [place] [address] Jul, [facility] [address] [id number] [address] [place] [address], [place] [address] Jul, [facility] [address] [id number] [address] [place] [address], [place] [address] Jul, [facility] [address] [id number] [address] [place] [address], [place] [address] Jul, [facility] [address] [id number] [address] [place] [address], [place] [address] Jul, [facility] [address] [id number] [address] [place] [address], [place] [address] Jul, [facility] [address] [id number] [address] [place] [address], [place] [address] Jul, [facility] [address] [id number] [address] [place] [address], [place] [address] May, [facility] [address] [id number] [place] [id number] May, [facility] [address] [id number] [address] [address] May, [facility] [address] [id number] [address] [place] [address] May, [facility] [address] [id number] [address] [place] [address] May, [facility] [address] [id number] [address] [place] [address] Apr, [facility] [place] [address] [id number] [place] [id number] Apr, [facility] [address] [id number] [address] [place] [address] Apr, [facility] [address] [id number] [address] [place] [address] Mar, [facility] [address] [id number] [place] [id number] Mar, [facility] [address] [id number] [address] [place] [address] Mar, [facility] [address] [id number] [place] [id number] Feb, [facility] [address] [id number] [address] [place] [address] Feb, [facility] [address] [id number] [address] [place] [address] Feb, [facility] [address] [id number] [place] [id number] Feb, [facility] [place] [address] [id number] [place] [id number] Feb, [facility] [place] [address] [id number] [place] [id number] Jan, [facility] [address] [id number] [address] [place] [phone] Jan, [facility] [place] [address] [id number] [place] [id number] Jan, [facility] [address] [id number] [place] [id number] Jan, [facility] [place] [address] [id number] [place] [id number] Jan, [facility] [address] [facility] [id number] [place] [address] Jan, [facility] [address] [facility] [id number] [address] [place] [phone] Jan, [facility] [address] [facility] [id number] [address] [place] [phone] Aug, [facility] [place] [address] [id number] [place] [id number] Aug, [facility] [address] [facility] [id number] [address] [place] [phone] Jul, [facility] [address] [facility] [id number] [address] [place] [phone] Jul, [facility] [address] [facility] [id number] [address] [place] [phone] Jul, [facility] [address] [id number] [place] [id number] Jul, 2011 [facility] [address] [facility] [id number] [address] [place] [phone] Jul, [facility] [place] [address] [id number] [place] [id number] Jul, [facility] [address] [facility] [id number] [address] [place] [phone] Jul, [facility] [place] [address] [id number] [place] [id number] Jul, [facility] [address] [id number] [place] [id number] Jul, [facility] [address] [id number] [place] [id number] Jul, [facility] [address] [facility] [id number] [address] [place] [phone] May, [facility] [address] [id number] [address] [place] [phone] May, [facility] [address] [id number] [address] [place] [phone] May, [facility] [address] [id number] [address] [place] [phone] Apr, [facility] [address] [id number] [address] [place] [phone] Jan, [facility] [address] [id number] [address] [place] [phone] Jan, [facility] [address] [id number] [address] [place] [phone] Dec, [facility] [address] [id number] [address] [place] [phone] Dec, [facility] [address] [id number] [address] [place] [phone] May, [facility] [address] [id number] [address] [place] [phone] Mar, [facility] [address] [id number] [address] [place] [phone] Mar, [facility] [address] [id number] [address] [place] [id number] Jan, 2009 IMMUNIZATIONS No Known Immunizations SOCIAL HISTORY Never Assessed REASON FOR VISIT PLAN OF CARE VITAL SIGNS MEDICATIONS Unknown Medications RESULTS No Results PROCEDURES Procedure Date Ordered Result Body Site PROTHROMBIN TIME January 18, 2013 INSTRUCTIONS MEDICATIONS ADMINISTERED No Known Medications [...]
--- OUTSIDE RECORDS SUMMARY | 2020-01-28 13:17 | XMS REPORT ---
Author Author Heydi Candelario Doctor Organization [facility] Address Unknown Phone Unavailable Care Team Providers Care Commercial [employer] Professional Name Role Phone Migration, Doctor Unavailable Unavailable PROBLEMS Type Condition ICD9-CM Code YMB32-SC Code Onset Dates Condition S tatus SNOMED Code Problem Chronic pain syndrome G89.4 Active 964855098 Problem Sore throat J02.9 Active 62094595 3 Problem Choriocarcinoma C58 Active 1881 25258 Problem snf current use of anticoagulant Z79.01 Active 636894815 Problem History of venous thromboembolism V12.51 Active 207485889 Problem Cellulitis of unspecified part of limb L03.119 Active 389916270 Problem Gastroesophageal reflux disease without esophagitis K21.9 Active 704014904 Problem History of pulmonary embolism Z86.711 Active 421057320 Problem Pseudotumor cerebri G93.2 Active 98282816 Problem History of DVT (deep vein thrombosis) Z86.718 Active [id number] ALLERGIES No Information ENCOUNTERS Encounter Location Date Diagnosis [place] [address] [place] [id number] [address] [place] [address] 14 Nov, 2019 Encounter for screening labo ratory testing for COVID-19 virus Z11.59 [place] [address] [place] [id number] [address] [place] [address] Apr, 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 [place] [id number] [facility] [id number] [address] [place] [address] Apr, snf current use of ant icoagulant Z79.01 [place] [address] [facility] [id number] [address] [place] [address] Apr, Cellulitis of unspecified pa rt of limb L03.119 ; Allergic contact dermatitis due to adhesives L23.1 and Chronic pain syndrome G89.4 [place] [address] [address] Apr, [facility] [address] [address] Apr, snf current use of ant icoagulant Z79.01 ; Cellulitis of unspecified part of limb L03.119 ; Chronic pain syndrome G89.4 and Anxiety F41.9 [place] [address] [address] Apr, [facility] [address] [address] Apr, [place] [address] [address] Mar, [place] [address] [address] Mar, [place] [address] [address] Mar, Sore throat J02.9 ; Gastroes ophageal reflux disease without esophagitis K21.9 ; Pseudotumor cerebri G93.2 ; Chronic pain syndrome G89.4 ; Choriocarcinoma C58 ; History of pulmonary embolism Z86.711 ; History of DVT (deep vein thrombosis) Z86.718 ; Anxiety F41.9 and Tachycardia R00.0 [place] [address] [place] [id number] [address] [place] [address] Feb, Anxiety 300.00 and Chronic p ain 338.29 [facility] [address] [place] [id number] [address] [place] [address] Feb, [facility] [address] [address] Feb, [facility] [address] [place] [id number] [address] [place] [address] Jan, 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.61 and Dysuria 788.1 [place] [address] [place] [id number] [address] [place] [address] Jan, Dysuria 788.1 [place] [address] [address] Jan, Anxiety 300.00 and Chronic p ain 338.29 [place] [address] [address] Jan, [place] [address] [address] Jan, [place] [address] [address] Jan, [place] [address] [address] Dec, Weakness 780.79 [place] [address] [address] Dec, 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.[address] [address] Dec, Palpitations 785.1 ; Tremor 781.0 ; Weakness 780.79 ; snf current use of anticoagulant therapy V58.61 and Yeast vaginitis 112.1 [place] [address] [place] [id number] [address] [place] [address] Dec, [place] [address] [address] Dec, Cervicalgia 723.1 ; Tachycar yoseph 785.0 ; Pseudotumor cerebri 348.2 and History of venous thromboembolism V12.51 [place] [address] [address] Nov, [place] [address] [place] [id number] [address] [place] [address] Nov, [place] [address] [place] [id number] [place] [address] 24 Nov, 2014 Tachycardia 785.0 ; Pseudotu mor cerebri 348.2 ; Anxiety 300.00 and History of venous thromboembolism V12.51 [facility] [address] [id number] [address] [place] [address] 19 Nov, 2014 [facility] [address] [id number] [address] [place] [address] 18 Nov, 2014 [facility] [address] [id number] [address] [place] [address] 16 Nov, 2014 [facility] [address] [id number] [address] [place] [address] Nov, [facility] [address] [facility] [id number] [address] [place] [address] Nov, [facility] [address] [facility] [id number] [address] [place] [address] Nov, [facility] [address] [id number] [address] [place] [address] Nov, [facility] [address] [facility] [id number] [address] [place] [address] October, [facility] [address] [facility] [id number] [address] [place] [address] October, [facility] [address] [facility] [id number] [address] [place] [address] October, Pain in thoracic spine 724.1 and Tachycardia 785.0 [facility] [address] [id number] [address] [place] [address] October, [facility] [address] [facility] [id number] [address] [place] [address] October, [facility] [address] [facility] [id number] [address] [place] [address] 14 Sep, 2014 [facility] [address] [facility] [id number] [address] [place] [address] Sep, [facility] [address] [id number] [address] [place] [address], [place] [address] Aug, [facility] [address] [id number] [address] [place] [address], [place] [address] Aug, [facility] [address] [id number] [address] [place] [address], [place] [address] Aug, [facility] [address] [id number] [address] [place] [address], [place] [address] Aug, [facility] [address] [id number] [address] [place] [address], [place] [address] Aug, [facility] [address] [id number] [address] [place] [address], [place] [address] Aug, [facility] [address] [id number] [address] [place] [address], [place] [address] Aug, [facility] [address] [id number] [address] [place] [address], [place] [address] Aug, [facility] [address] [id number] [address] [place] [address], [place] [address] Aug, [facility] [address] [id number] [address] [place] [address], [place] [address] Aug, [facility] [address] [id number] [address] [place] [address], [place] [address] Aug, [facility] [address] [id number] [address] [place] [address], [place] [address] Aug, [facility] [address] [id number] [address] [place] [address], [place] [address] Jul, [facility] [address] [id number] [address] [place] [address], [place] [address] Jul, [facility] [address] [id number] [address] [place] [address], [place] [address] Jul, [facility] [address] [id number] [address] [place] [address], [place] [address] 23 Jul, 2014 [facility] [address] [id number] [address] [place] [address], [place] [address] 23 Jul, 2014 [facility] [address] [id number] [address] [place] [address], [place] [address] 23 Jul, 2014 [facility] [address] [id number] [address] [place] [address], [place] [address] 23 Jul, 2014 [facility] [address] [id number] [address] [place] [address], [place] [address] 23 Jul, 2014 [facility] [address] [id number] [address] [place] [address], [place] [address] 20 Jul, 2014 [facility] [address] [id number] [address] [place] [address], [place] [address] 20 Jul, 2014 [facility] [address] [id number] [address] [place] [address] 19 Jul, 2014 [facility] [address] [id number] [address] [place] [address], [place] [address] 19 Jul, 2014 [facility] [address] [id number] [address] [place] [address] 17 Jul, 2014 [facility] [address] [id number] [address] [place] [address] 17 Jul, 2014 [facility] [address] [id number] [address] [place] [address] 16 Jul, 2014 [facility] [address] [id number] [address] [place] [address], [place] [address] 16 Jul, 2014 [facility] [address] [id number] [address] [place] [address] 16 Jul, 2014 [facility] [address] [id number] [address] [place] [address] 16 Jul, 2014 [facility] [address] [id number] [address] [place] [address], [place] [address] 13 Jul, 2014 [facility] [address] [id number] [address] [place] [address], [place] [address] Jul, 2014 [facility] [address] [id number] [address] [place] [address], [place] [address] Jul, 2014 [facility] [address] [id number] [address] [place] [address], [place] [address] Jul, 2014 [facility] [address] [id number] [address] [place] [address], [place] [address] Jul, 2014 [facility] [address] [id number] [address] [place] [address], [place] [address] Jul, [facility] [address] [id number] [address] [place] [address], [place] [address] Jul, 2014 [facility] [address] [id number] [address] [place] [address], [place] [address] Jul, [facility] [address] [id number] [address] [place] [address], [place] [address] Jul, [facility] [address] [id number] [address] [place] [address], [place] [address] Jul, [facility] [address] [id number] [address] [place] [address] Jul, [facility] [address] [id number] [address] [place] [address] Jul, [facility] [address] [id number] [address] [place] [address], [place] [address] Jun, [facility] [address] [id number] [address] [place] [address] Jun, [facility] [address] [id number] [address] [place] [address] Jun, [facility] [address] [id number] [address] [place] [address] Jun, [facility] [address] [id number] [address] [place] [address], [place] [address] Jun, [facility] [address] [id number] [address] [place] [address], [place] [address] Jun, [facility] [address] [id number] [address] [place] [address], [place] [address] Jun, [facility] [address] [id number] [address] [place] [address], [place] [address] Jun, [facility] [address] [id number] [address] [place] [address], [place] [address] Jun, [facility] [address] [id number] [address] [place] [address], [place] [address] Jun, [facility] [address] [id number] [address] [place] [address], [place] [address] Jun, [facility] [address] [id number] [address] [place] [address], [place] [address] Jun, [facility] [address] [id number] [address] [place] [address], [place] [address] Jun, [facility] [address] [id number] [address] [place] [address], [place] [address] Jun, [facility] [address] [id number] [address] [place] [address], [place] [address] Jun, [facility] [address] [id number] [address] [place] [address], [place] [address] Jun, [facility] [address] [id number] [address] [place] [address], [place] [address] Jun, [facility] [address] [id number] [address] [place] [address], [place] [address] Jun, [facility] [address] [id number] [address] [place] [address], [place] [address] Jun, [facility] [address] [id number] [address] [place] [address], [place] [address] Jun, [facility] [address] [id number] [address] [place] [address], [place] [address] May, [facility] [address] [id number] [address] [place] [address], [place] [address] May, [facility] [address] [id number] [address] [place] [address], [place] [address] May, [facility] [address] [id number] [address] [place] [address], [place] [address] May, [facility] [address] [id number] [address] [place] [address], [place] [address] May, [facility] [address] [id number] [address] [place] [address], [place] [address] May, [facility] [address] [id number] [address] [place] [address], [place] [address] May, [facility] [address] [id number] [address] [place] [address], [place] [address] May, [facility] [address] [id number] [address] [place] [address], [place] [address] May, [facility] [address] [id number] [address] [place] [address], [place] [address] May, [facility] [address] [id number] [address] [place] [address], [place] [address] May, [facility] [address] [id number] [address] [place] [address], [place] [address] 18 May, 2014 [facility] [address] [id number] [address] [place] [address], [place] [address] 18 May, 2014 [facility] [address] [id number] [address] [place] [address], [place] [address] 17 May, 2014 [facility] [address] [id number] [address] [place] [address], [place] [address] 16 May, 2014 [facility] [address] [id number] [facility] [place] [address] 16 May, 2014 [facility] [address] [id number] [facility] [place] [address] 15 May, 2014 [facility] [address] [id number] [address] [place] [address], [place] [address] 15 May, 2014 [facility] [address] [id number] [address] [place] [address], [place] [address] May, [facility] [address] [id number] [address] [place] [address], [place] [address] May, [facility] [address] [id number] [address] [place] [address], [place] [address] May, [facility] [address] [id number] [address] [place] [address], [place] [address] May, [facility] [address] [id number] [address] [place] [address], [place] [address] May, [facility] [address] [id number] [address] [place] [address], [place] [address] May, [facility] [address] [id number] [address] [place] [address], [place] [address] May, [facility] [address] [id number] [address] [place] [address], [place] [address] May, [facility] [address] [id number] [address] [place] [address], [place] [address] May, [facility] [address] [id number] [address] [place] [address], [place] [address] May, [facility] [address] [id number] [address] [place] [address], [place] [address] May, [facility] [address] [id number] [address] [place] [address], [place] [address] May, [facility] [address] [id number] [address] [place] [address], [place] [address] 05 May, 2014 [facility] [address] [id number] [address] [place] [address], [place] [address] May, [facility] [address] [id number] [address] [place] [address], [place] [address] May, [facility] [address] [id number] [address] [place] [address], [place] [address] May, [facility] [address] [id number] [address] [place] [address], [place] [address] Apr, [facility] [address] [id number] [address] [place] [address], [place] [address] Apr, [facility] [address] [id number] [address] [place] [address], [place] [address] Apr, [facility] [address] [id number] [address] [place] [address], [place] [address] Apr, [facility] [address] [id number] [address] [place] [address], [place] [address] Apr, [facility] [address] [id number] [address] [place] [address], [place] [address] Apr, [facility] [address] [id number] [address] [place] [address], [place] [address] Apr, [facility] [address] [id number] [address] [place] [address], [place] [address] Apr, [facility] [address] [id number] [address] [place] [address], [place] [address] Apr, [facility] [address] [id number] [address] [place] [address], [place] [address] Apr, [facility] [address] [id number] [address] [place] [address], [place] [address] Mar, [facility] [address] [id number] [address] [place] [address], [place] [address] Mar, [facility] [address] [id number] [address] [place] [address], [place] [address] 31 Mar, 2013 [facility] [address] [id number] [address] [place] [address], [place] [address] Mar, 2013 [facility] [address] [id number] [address] [place] [address], [place] [address] 30 Mar, 2014 [facility] [address] [id number] [address] [place] [address], [place] [address] 30 Mar, 2014 [facility] [address] [id number] [address] [place] [address], [place] [address] Mar, [facility] [address] [id number] [address] [place] [address], [place] [address] Mar, [facility] [address] [id number] [address] [place] [address], [place] [address] Mar, [facility] [address] [id number] [address] [place] [address], [place] [address] Mar, [facility] [address] [id number] [address] [place] [address], [place] [address] Mar, [facility] [address] [id number] [address] [place] [address], [place] [address] Mar, [facility] [address] [id number] [address] [place] [address], [place] [address] Mar, [facility] [address] [id number] [address] [place] [address], [place] [address] Mar, [facility] [address] [id number] [address] [place] [address], [place] [address] Mar, [facility] [address] [id number] [address] [place] [address], [place] [address] Mar, [facility] [address] [id number] [address] [place] [address], [place] [address] Mar, [facility] [address] [id number] [address] [place] [address] Mar, [facility] [address] [id number] [address] [place] [address], [place] [address] Mar, [facility] [address] [id number] [address] [place] [address], [place] [address] Mar, [facility] [address] [id number] [address] [place] [address], [place] [address] 05 Sep, 2013 [facility] [address] [id number] [address] [place] [address], [place] [address] 05 Sep, 2013 [facility] [address] [id number] [address] [place] [address], [place] [address] 04 Feb, 2013 [facility] [address] [id number] [address] [place] [address], [place] [address] 04 Feb, 2013 [facility] [address] [id number] [address] [place] [address], [place] [address] Feb, 2013 [facility] [address] [id number] [address] [place] [address], [place] [address] Feb, 2013 [facility] [address] [id number] [address] [place] [address], [place] [address] Feb, 2013 [facility] [address] [id number] [address] [place] [address], [place] [address] Feb, 2013 [facility] [address] [id number] [address] [place] [address], [place] [address] Feb, 2013 [facility] [address] [id number] [address] [place] [address], [place] [address] Feb, 2013 [facility] [address] [id number] [address] [place] [address], [place] [address] Jan, [facility] [address] [id number] [address] [place] [address], [place] [address] Jan, [facility] [address] [id number] [address] [place] [address], [place] [address] Jan, [facility] [address] [id number] [facility] [place] [address] Jan, [facility] [address] [id number] [facility] [place] [address] Jan, [facility] [address] [id number] [facility] [place] [address] Jan, [facility] [address] [id number] [address] [place] [address], [place] [address] Jan, [facility] [address] [id number] [address] [place] [address], [place] [address] Jan, [facility] [address] [id number] [address] [place] [address], [place] [address] Jan, [facility] [address] [id number] [address] [place] [address], [place] [address] Jan, [facility] [address] [id number] [address] [place] [address], [place] [address] Jan, [facility] [address] [id number] [address] [place] [address], [place] [address] Jan, [facility] [address] [id number] [address] [place] [address], [place] [address] Dec, [facility] [address] [id number] [address] [place] [address], [place] [address] Dec, [facility] [address] [id number] [address] [place] [address], [place] [address] Dec, [facility] [address] [id number] [address] [place] [address], [place] [address] Dec, [facility] [address] [id number] [address] [place] [address], [place] [address] Dec, [facility] [address] [id number] [address] [place] [address], [place] [address] Dec, [facility] [address] [id number] [address] [place] [address], [place] [address] Dec, [facility] [address] [id number] [address] [place] [address], [place] [address] Dec, 2013 [facility] [address] [id number] [address] [place] [address], [place] [address] Dec, [facility] [address] [id number] [address] [place] [address], [place] [address] Dec, [facility] [address] [id number] [address] [place] [address], [place] [address] Dec, [facility] [address] [id number] [address] [place] [address], [place] [address] Dec, [facility] [address] [id number] [address] [place] [address], [place] [address] Nov, [facility] [address] [id number] [address] [place] [address], [place] [address] Nov, [facility] [address] [id number] [address] [place] [address], [place] [address] Nov, [facility] [address] [id number] [address] [place] [address], [place] [address] Nov, [facility] [address] [id number] [address] [place] [address], [place] [address] Nov, [facility] [address] [id number] [address] [place] [address], [place] [address] Nov, [facility] [address] [id number] [address] [place] [address], [place] [address] Nov, [facility] [address] [id number] [address] [place] [address], [place] [address] Nov, [facility] [address] [id number] [address] [place] [address], [place] [address] Nov, [facility] [address] [id number] [address] [place] [address], [place] [address] Nov, [facility] [address] [id number] [address] [place] [address], [place] [address] Nov, [facility] [address] [id number] [address] [place] [address], [place] [address] Nov, [facility] [address] [id number] [address] [place] [address], [place] [address] Nov, [facility] [address] [id number] [address] [place] [address], [place] [address] Nov, [facility] [address] [id number] [address] [place] [address], [place] [address] October, [facility] [address] [id number] [address] [place] [address], [place] [address] October, [facility] [address] [id number] [address] [place] [address], [place] [address] October, [facility] [address] [id number] [address] [place] [address], [place] [address] October, [facility] [address] [id number] [address] [place] [address], [place] [address] October, [facility] [address] [id number] [address] [place] [address], [place] [address] October, [facility] [address] [id number] [address] [place] [address], [place] [address] October, [facility] [address] [id number] [address] [place] [address], [place] [address] October, [facility] [address] [id number] [address] [place] [address], [place] [address] October, [facility] [address] [id number] [address] [place] [address], [place] [address] October, [facility] [address] [id number] [address] [place] [address], [place] [address] October, [facility] [address] [id number] [address] [place] [address], [place] [address] October, [facility] [address] [id number] [facility] [place] [address] Sep, [facility] [address] [id number] [facility] [place] [address] Sep, [facility] [address] [id number] [facility] [place] [address] Sep, [facility] [address] [id number] [address] [place] [address], [place] [address] Sep, [facility] [address] [id number] [address] [place] [address], [place] [address] Sep, [facility] [address] [id number] [address] [place] [address], [place] [address] Sep, [facility] [address] [id number] [address] [place] [address], [place] [address] Aug, [facility] [address] [id number] [address] [place] [address], [place] [address] Aug, [facility] [address] [id number] [address] [place] [address], [place] [address] Aug, [facility] [address] [id number] [address] [place] [address], [place] [address] Aug, [facility] [address] [id number] [address] [place] [address], [place] [address] Aug, [facility] [address] [id number] [address] [place] [address], [place] [address] Aug, [facility] [address] [id number] [address] [place] [address], [place] [address] Jul, [facility] [address] [id number] [address] [place] [address], [place] [address] Jul, [facility] [address] [id number] [address] [place] [address], [place] [address] Jul, [facility] [address] [id number] [address] [place] [address], [place] [address] Jul, [facility] [address] [id number] [address] [place] [address], [place] [address] Jul, [facility] [address] [id number] [address] [place] [address], [place] [address] Jul, [facility] [address] [id number] [address] [place] [address], [place] [address] Jul, [facility] [address] [id number] [address] [place] [address], [place] [address] Jul, [facility] [address] [id number] [address] [place] [address], [place] [address] Jul, [facility] [address] [id number] [address] [place] [address], [place] [address] Jul, [facility] [address] [id number] [address] [place] [address], [place] [address] Jun, [facility] [address] [id number] [address] [place] [address], [place] [address] Jun, [facility] [address] [id number] [address] [place] [address], [place] [address] Jun, [facility] [address] [id number] [address] [place] [address], [place] [address] Jun, [facility] [address] [id number] [address] [place] [address], [place] [address] Jun, [facility] [address] [id number] [address] [place] [address], [place] [address] Jun, [facility] [address] [id number] [address] [place] [address], [place] [address] Jun, [facility] [address] [id number] [address] [place] [address], [place] [address] Jun, [facility] [address] [id number] [address] [place] [address], [place] [address] May, [facility] [address] [id number] [address] [place] [address], [place] [address] May, [facility] [address] [id number] [address] [place] [address], [place] [address] May, [facility] [address] [id number] [address] [place] [address], [place] [address] May, [facility] [address] [id number] [address] [place] [address], [place] [address] May, [facility] [address] [id number] [address] [place] [address], [place] [address] May, [facility] [address] [id number] [address] [place] [address], [place] [address] May, [facility] [address] [id number] [address] [place] [address], [place] [address] May, [facility] [address] [id number] [address] [place] [address], [place] [address] Apr, [facility] [address] [id number] [address] [place] [address], [place] [address] Apr, [facility] [address] [id number] [address] [place] [address], [place] [address] Apr, [facility] [address] [id number] [address] [place] [address], [place] [address] Apr, [facility] [address] [id number] [address] [place] [address], [place] [address] Apr, [facility] [address] [id number] [address] [place] [address], [place] [address] Apr, [facility] [address] [id number] [address] [place] [address], [place] [address] Mar, [facility] [address] [id number] [address] [place] [address], [place] [address] Mar, [facility] [address] [id number] [address] [place] [address], [place] [address] Mar, [facility] [address] [id number] [address] [place] [address], [place] [address] Mar, [facility] [address] [id number] [address] [place] [address], [place] [address] Mar, [facility] [address] [id number] [address] [place] [address], [place] [address] Mar, [facility] [address] [id number] [address] [place] [address], [place] [address] Mar, [facility] [address] [id number] [address] [place] [address], [place] [address] 30 Feb, 2013 [facility] [address] [id number] [address] [place] [address], [place] [address] 30 Feb, 2013 [facility] [address] [id number] [address] [place] [address], [place] [address] Feb, [facility] [address] [id number] [address] [place] [address], [place] [address] Feb, [facility] [address] [id number] [address] [place] [address], [place] [address] Feb, [facility] [address] [id number] [address] [place] [address], [place] [address] Feb, [facility] [address] [id number] [address] [place] [address], [place] [address] Jan, [facility] [address] [id number] [address] [place] [address], [place] [address] Jan, [facility] [address] [id number] [address] [place] [address], [place] [address] Jan, [facility] [address] [id number] [address] [place] [address], [place] [address] Jan, [facility] [address] [id number] [address] [place] [address], [place] [address] Jan, [facility] [address] [id number] [address] [place] [address], [place] [address] Jan, [facility] [address] [id number] [address] [place] [address], [place] [address] Jan, [facility] [address] [id number] [address] [place] [address], [place] [address] Jan, [facility] [address] [id number] [address] [place] [address], [place] [address] Jan, [facility] [address] [id number] [address] [place] [address], [place] [address] Dec, [facility] [address] [id number] [address] [place] [address], [place] [address] Dec, [facility] [address] [id number] [address] [place] [address], [place] [address] Dec, [facility] [address] [id number] [address] [place] [address], [place] [address] Dec, [facility] [address] [id number] [address] [place] [address], [place] [address] Dec, [facility] [address] [id number] [address] [place] [address], [place] [address] Dec, [facility] [address] [id number] [address] [place] [address], [place] [address] Dec, [facility] [address] [id number] [address] [place] [address], [place] [address] Dec, [facility] [address] [id number] [address] [place] [address], [place] [address] Dec, [facility] [address] [id number] [address] [place] [address], [place] [address] Dec, [facility] [address] [id number] [address] [place] [address], [place] [address] Dec, [facility] [address] [id number] [address] [place] [address], [place] [address] Dec, [facility] [address] [id number] [address] [place] [address], [place] [address] Dec, [facility] [address] [id number] [address] [place] [address], [place] [address] Nov, [facility] [address] [id number] [address] [place] [address], [place] [address] Nov, [facility] [address] [id number] [address] [place] [address], [place] [address] Nov, [facility] [address] [id number] [address] [place] [address], [place] [address] Nov, [facility] [address] [id number] [address] [place] [address], [place] [address] October, [facility] [address] [id number] [address] [place] [address], [place] [address] October, [facility] [address] [id number] [address] [place] [address], [place] [address] October, [facility] [address] [id number] [address] [place] [address], [place] [address] October, [facility] [address] [id number] [address] [place] [address], [place] [address] October, [facility] [address] [id number] [address] [place] [address], [place] [address] October, [facility] [address] [id number] [address] [place] [address], [place] [address] Sep, [facility] [address] [id number] [address] [place] [address], [place] [address] Sep, [facility] [address] [id number] [address] [place] [address], [place] [address] Sep, [facility] [address] [id number] [address] [place] [address], [place] [address] Sep, [facility] [address] [id number] [address] [place] [address], [place] [address] 19 Sep, 2012 [facility] [address] [id number] [address] [place] [address], [place] [address] 16 Sep, 2012 [facility] [address] [id number] [address] [place] [address], [place] [address] Sep, [facility] [address] [id number] [address] [place] [address], [place] [address] Sep, [facility] [address] [id number] [address] [place] [address], [place] [address] Sep, [facility] [address] [id number] [address] [place] [address], [place] [address] Sep, [facility] [address] [id number] [address] [place] [address], [place] [address] Sep, [facility] [address] [id number] [address] [place] [address], [place] [address] Aug, [facility] [address] [id number] [address] [place] [address], [place] [address] Aug, [facility] [address] [id number] [address] [place] [address], [place] [address] 25 Aug, 2012 [facility] [address] [id number] [address] [place] [address], [place] [address] Aug, [facility] [address] [id number] [address] [place] [address], [place] [address] 19 Aug, 2012 [facility] [address] [id number] [address] [place] [address], [place] [address] 18 Aug, 2012 [facility] [address] [id number] [address] [place] [address], [place] [address] 17 Aug, 2012 [facility] [address] [id number] [address] [place] [address], [place] [address] 15 Aug, 2012 [facility] [address] [id number] [address] [place] [address], [place] [address] 15 Aug, 2012 [facility] [address] [id number] [address] [place] [address], [place] [address] Aug, [facility] [address] [id number] [address] [place] [address], [place] [address] Aug, [facility] [address] [id number] [address] [place] [address], [place] [address] Aug, [facility] [address] [id number] [address] [place] [address], [place] [address] Jul, [facility] [address] [id number] [address] [place] [address], [place] [address] Jul, [facility] [address] [id number] [address] [place] [address], [place] [address] Jul, [facility] [address] [id number] [address] [place] [address], [place] [address] Jul, [facility] [address] [id number] [address] [place] [address], [place] [address] Jul, [facility] [address] [id number] [address] [place] [address], [place] [address] Jul, [facility] [address] [id number] [address] [place] [address], [place] [address] Jul, [facility] [address] [id number] [address] [place] [address], [place] [address] Jul, [facility] [address] [id number] [address] [place] [address], [place] [address] Jul, [facility] [address] [id number] [address] [place] [address], [place] [address] Jul, [facility] [address] [id number] [address] [place] [address], [place] [address] May, [facility] [address] [id number] [place] [id number] May, [facility] [address] [id number] [address] [place] [address] May, [facility] [address] [id number] [address] [place] [address] May, [facility] [address] [id number] [address] [place] [address] May, [facility] [address] [id number] [address] [place] [address] Apr, [facility] [address] [id number] [place] [id number] Apr, [facility] [address] [id number] [address] [place] [address] Apr, [facility] [address] [id number] [address] [place] [address] Mar, [facility] [address] [id number] [place] [id number] Mar, [facility] [address] [id number] [address] [place] [id number] Mar, [facility] [address] [id number] [place] [id number] Feb, [facility] [address] [id number] [address] [place] [id number] Feb, [facility] [address] [id number] [address] [place] [id number] Feb, [facility] [address] [id number] [place] [id number] Feb, [facility] [address] [id number] [place] [id number] Feb, [facility] [address] [id number] [place] [id number] Jan, [facility] [address] [id number] [address] [place] [id number] Jan, [facility] [place] [address] [id number] [place] [id number] Jan, [facility] [place] [address] [id number] [place] [id number] Jan, [facility] [address] [id number] [place] [id number] Jan, [facility] [address] [facility] [id number] [address] [place] [address] Jan, [facility] [address] [facility] [id number] [address] [place] [id number] Jan, [facility] [address] [facility] [id number] [address] [place] [id number] Aug, [facility] [address] [id number] [place] [id number] Aug, [facility] [address] [facility] [id number] [address] [place] [id number] Jul, [facility] [address] [facility] [id number] [address] [place] [id number] Jul, [facility] [address] [facility] [id number] [address] [place] [id number] Jul, [facility] [address] [id number] [place] [id number] Jul, 2011 [facility] [address] [facility] [id number] [address] [place] [id number] Jul, [facility] [address] [id number] [place] [id number] Jul, [facility] [address] [facility] [id number] [address] [place] [id number] Jul, [facility] [place] [address] [id number] [place] [id number] Jul, [facility] [address] [id number] [place] [id number] Jul, [facility] [address] [id number] [place] [id number] Jul, [facility] [address] [facility] [id number] [address] [place] [id number] May, [facility] [address] [id number] [address] [place] [id number] May, [facility] [address] [id number] [address] [place] [id number] May, [facility] [address] [id number] [address] [place] [id number] Apr, [facility] [address] [id number] [address] [place] [id number] Jan, [facility] [address] [id number] [address] [place] [id number] Jan, [facility] [address] [id number] [address] [place] [id number] Dec, [facility] [address] [id number] [address] [place] [id number] Dec, [facility] [address] [id number] [address] [place] [id number] May, [facility] [address] [id number] [address] [place] [id number] Mar, [facility] [address] [id number] [address] [place] [id number] Mar, [facility] [address] [id number] [address] [place] [id number] 14 Jan, 2009 IMMUNIZATIONS No Known Immunizations [...]
--- OUTSIDE RECORDS SUMMARY | 2020-01-28 13:18 | XMS REPORT ---
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 Name Role Phone Migration, Doctor Unavailable Unavailable PROBLEMS Type Condition ICD9-CM Code JJI87-PC Code Onset Dates Condition S tatus SNOMED Code Problem Chronic pain syndrome G89.4 Active 089278435 Problem Sore throat J02.9 Active 79515435 3 Problem Choriocarcinoma C58 Active 1881 29261 Problem alf current use of anticoagulant Z79.01 Active 436819440 Problem History of venous thromboembolism V12.51 Active 236594659 Problem Cellulitis of unspecified part of limb L03.119 Active 012205753 Problem Gastroesophageal reflux disease without esophagitis K21.9 Active 593594499 Problem History of pulmonary embolism Z86.711 Active 755744808 Problem Pseudotumor cerebri G93.2 Active 13685294 Problem History of DVT (deep vein thrombosis) Z86.718 Active 041301399 ALLERGIES No Information ENCOUNTERS Encounter Location Date Diagnosis [place] [address] [place] [id number] [address] [place] [id number] 14 Nov, 2019 Encounter for screening labo ratory testing for COVID-19 virus Z11.59 [place] [address] [place] [id number] [address] [place] [address] Apr, 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 Z79.01 [place] [address] [facility] [id number] [address] [place] [address] Apr, alf current use of ant icoagulant Z79.01 [place] [address] [facility] [id number] [address] [place] [address] Apr, Cellulitis of unspecified pa rt of limb L03.119 ; Allergic contact dermatitis due to adhesives L23.1 and Chronic pain syndrome G89.4 [place] [address] [address] Apr, [facility] [place] [address] [address] Apr, alf current use of ant icoagulant Z79.01 ; Cellulitis of unspecified part of limb L03.119 ; Chronic pain syndrome G89.4 and Anxiety F41.9 [place] [address] [address] Apr, [facility] [place] [address] [address] Apr, [place] [address] [address] Mar, [place] [address] [address] Mar, [place] [address] [address] Mar, Sore throat J02.9 ; Gastroes ophageal reflux disease without esophagitis K21.9 ; Pseudotumor cerebri G93.2 ; Chronic pain syndrome G89.4 ; Choriocarcinoma C58 ; History of pulmonary embolism Z86.711 ; History of DVT (deep vein thrombosis) Z86.718 ; Anxiety F41.9 and Tachycardia R00.0 [place] [address] [place] [id number] [address] [place] [address] Feb, Anxiety 300.00 and Chronic p ain 338.29 [facility], [place] [address] [place] [id number] [address] [place] [address] Feb, [facility] [place] [address] [address] Feb, [facility], [place] [address] [place] [id number] [address] [place] [address] Jan, 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 use of ant icoagulant therapy V58.61 and Dysuria 788.1 [place] [address] [place] [id number] [address] [place] [address] Jan, Dysuria 788.1 [place] [address] [address] Jan, Anxiety 300.00 and Chronic p ain 338.29 [place] [address] [address] Jan, [place] [address] [address] Jan, [place] [address] [address] Jan, [place] [address] [address] Dec, Weakness 780.79 [place] [address] [address] Dec, 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 use of ant icoagulant therapy V58.[address] [address] Dec, Palpitations 785.1 ; Tremor 781.0 ; Weakness 780.79 ; alf current use of anticoagulant therapy V58.61 and Yeast vaginitis 112.1 [place] [address] [place] [id number] [address] [place] [address] Dec, [place] [address] [address] Dec, Cervicalgia 723.1 ; Tachycar yoseph 785.0 ; Pseudotumor cerebri 348.2 and History of venous thromboembolism V12.51 [place] [address] [address] Nov, [place] [address] [place] [id number] [address] [place] [address] Nov, [place] [address] [place] [id number] [place] [address] 24 Nov, 2014 Tachycardia 785.0 ; Pseudotu mor cerebri 348.2 ; Anxiety 300.00 and History of venous thromboembolism V12.51 [facility], [place] [address] [id number] [address] [place] [address] 19 Nov, 2014 [facility] [place] [address] [id number] [address] [place] [id number] 18 Nov, 2014 [facility] [place] [address] [id number] [address] [place] [address] 16 Nov, 2014 [facility] [place] [address] [id number] [address] [place] [address] Nov, [facility] [place] [address] [facility] [id number] [address] [place] [address] Nov, [facility] [place] [address] [facility] [id number] [address] [place] [address] Nov, [facility] [place] [address] [id number] [address] [place] [address] Nov, [facility] [place] [address] [facility] [id number] [address] [place] [address] October, [facility] [place] [address] [facility] [id number] [address] [place] [address] October, [facility] [place] [address] [facility] [id number] [address] [place] [address] October, Pain in thoracic spine 724.1 and Tachycardia 785.0 [facility] [place] [address] [id number] [address] [place] [phone] October, [facility] [place] [address] [facility] [id number] [address] [place] [address] October, [facility] [place] [address] [facility] [id number] [address] [place] [phone] 14 Sep, 2014 [facility] [place] [address] [facility] [id number] [address] [place] [phone] Sep, [facility] [address] [id number] [address] [place] [address], [place] [address] Aug, [facility] [address] [id number] [address] [place] [address], [place] [address] Aug, [facility] [address] [id number] [address] [place] [address], [place] [address] Aug, [facility] [address] [id number] [address] [place] [address], [place] [address] Aug, [facility] [address] [id number] [address] [place] [address], [place] [address] Aug, [facility] [address] [id number] [address] [place] [address], [place] [address] Aug, [facility] [address] [id number] [address] [place] [address], [place] [address] Aug, [facility] [address] [id number] [address] [place] [address], [place] [address] Aug, [facility] [address] [id number] [address] [place] [address], [place] [address] Aug, [facility] [address] [id number] [address] [place] [address], [place] [address] Aug, [facility] [address] [id number] [address] [place] [address], [place] [address] Aug, [facility] [address] [id number] [address] [place] [address], [place] [address] Aug, [facility] [address] [id number] [address] [place] [address], [place] [address] Jul, [facility] [address] [id number] [address] [place] [address], [place] [address] Jul, [facility] [address] [id number] [address] [place] [address], [place] [address] Jul, [facility] [address] [id number] [address] [place] [address], [place] [address] 23 Jul, 2014 [facility] [address] [id number] [address] [place] [address], [place] [address] 23 Jul, 2014 [facility] [address] [id number] [address] [place] [address], [place] [address] 23 Jul, 2014 [facility] [address] [id number] [address] [place] [address], [place] [address] 23 Jul, 2014 [facility] [address] [id number] [address] [place] [address], [place] [address] 23 Jul, 2014 [facility] [address] [id number] [address] [place] [address], [place] [address] 20 Jul, 2014 [facility] [address] [id number] [address] [place] [address], [place] [address] 20 Jul, 2014 [facility] [address] [id number] [address] [place] [id number] 19 Jul, 2014 [facility] [address] [id number] [address] [place] [address], [place] [address] 19 Jul, 2014 [facility] [address] [id number] [address] [place] [id number] 17 Jul, 2014 [facility] [address] [id number] [address] [place] [id number] 17 Jul, 2014 [facility] [address] [id number] [address] [place] [address] 16 Jul, 2014 [facility] [address] [id number] [address] [place] [address], [place] [address] 16 Jul, 2014 [facility] [address] [id number] [address] [place] [id number] 16 Jul, 2014 [facility] [address] [id number] [address] [place] [address] 16 Jul, 2014 [facility] [address] [id number] [address] [place] [address], [place] [address] 13 Jul, 2014 [facility] [address] [id number] [address] [place] [address], [place] [address] Jul, 2014 [facility] [address] [id number] [address] [place] [address], [place] [address] Jul, 2014 [facility] [address] [id number] [address] [place] [address], [place] [address] Jul, 2014 [facility] [address] [id number] [address] [place] [address], [place] [address] Jul, 2014 [facility] [address] [id number] [address] [place] [address], [place] [address] Jul, [facility] [address] [id number] [address] [place] [address], [place] [address] Jul, 2014 [facility] [address] [id number] [address] [place] [address], [place] [address] Jul, [facility] [address] [id number] [address] [place] [address], [place] [address] Jul, [facility] [address] [id number] [address] [place] [address], [place] [address] Jul, [facility] [address] [id number] [address] [place] [address] Jul, [facility] [address] [id number] [address] [place] [address] Jul, [facility] [address] [id number] [address] [place] [address], [place] [address] Jun, [facility] [address] [id number] [address] [place] [address] Jun, [facility] [address] [id number] [address] [place] [address] Jun, [facility] [address] [id number] [address] [place] [address] Jun, [facility] [address] [id number] [address] [place] [address], [place] [address] Jun, [facility] [address] [id number] [address] [place] [address], [place] [address] Jun, [facility] [address] [id number] [address] [place] [address], [place] [address] Jun, [facility] [address] [id number] [address] [place] [address], [place] [address] Jun, [facility] [address] [id number] [address] [place] [address], [place] [address] Jun, [facility] [address] [id number] [address] [place] [address], [place] [address] Jun, [facility] [address] [id number] [address] [place] [address], [place] [address] Jun, [facility] [address] [id number] [address] [place] [address], [place] [address] Jun, [facility] [address] [id number] [address] [place] [address], [place] [address] Jun, [facility] [address] [id number] [address] [place] [address], [place] [address] Jun, [facility] [address] [id number] [address] [place] [address], [place] [address] Jun, [facility] [address] [id number] [address] [place] [address], [place] [address] Jun, [facility] [address] [id number] [address] [place] [address], [place] [address] Jun, [facility] [address] [id number] [address] [place] [address], [place] [address] Jun, [facility] [address] [id number] [address] [place] [address], [place] [address] Jun, [facility] [address] [id number] [address] [place] [address], [place] [address] Jun, [facility] [address] [id number] [address] [place] [address], [place] [address] May, [facility] [address] [id number] [address] [place] [address], [place] [address] May, [facility] [address] [id number] [address] [place] [address], [place] [address] May, [facility] [address] [id number] [address] [place] [address], [place] [address] May, [facility] [address] [id number] [address] [place] [address], [place] [address] May, [facility] [address] [id number] [address] [place] [address], [place] [address] May, [facility] [address] [id number] [address] [place] [address], [place] [address] May, [facility] [address] [id number] [address] [place] [address], [place] [address] May, [facility] [address] [id number] [address] [place] [address], [place] [address] May, [facility] [address] [id number] [address] [place] [address], [place] [address] May, [facility] [address] [id number] [address] [place] [address], [place] [address] May, [facility] [address] [id number] [address] [place] [address], [place] [address] 18 May, 2014 [facility] [address] [id number] [address] [place] [address], [place] [address] 18 May, 2014 [facility] [address] [id number] [address] [place] [address], [place] [address] 17 May, 2014 [facility] [address] [id number] [address] [place] [address], [place] [address] 16 May, 2014 [facility] [address] [id number] [facility] [place] [address] 16 May, 2014 [facility] [address] [id number] [facility] [place] [address] 15 May, 2014 [facility] [address] [id number] [address] [place] [address], [place] [address] 15 May, 2014 [facility] [address] [id number] [address] [place] [address], [place] [address] May, [facility] [address] [id number] [address] [place] [address], [place] [address] May, [facility] [address] [id number] [address] [place] [address], [place] [address] May, [facility] [address] [id number] [address] [place] [address], [place] [address] May, [facility] [address] [id number] [address] [place] [address], [place] [address] May, [facility] [address] [id number] [address] [place] [address], [place] [address] May, [facility] [address] [id number] [address] [place] [address], [place] [address] May, [facility] [address] [id number] [address] [place] [address], [place] [address] May, [facility] [address] [id number] [address] [place] [address], [place] [address] May, [facility] [address] [id number] [address] [place] [address], [place] [address] May, [facility] [address] [id number] [address] [place] [address], [place] [address] May, [facility] [address] [id number] [address] [place] [address], [place] [address] May, [facility] [address] [id number] [address] [place] [address], [place] [address] 05 May, 2014 [facility] [address] [id number] [address] [place] [address], [place] [address] May, [facility] [address] [id number] [address] [place] [address], [place] [address] May, [facility] [address] [id number] [address] [place] [address], [place] [address] May, [facility] [address] [id number] [address] [place] [address], [place] [address] Apr, [facility] [address] [id number] [address] [place] [address], [place] [address] Apr, [facility] [address] [id number] [address] [place] [address], [place] [address] Apr, [facility] [address] [id number] [address] [place] [address], [place] [address] Apr, [facility] [address] [id number] [address] [place] [address], [place] [address] Apr, [facility] [address] [id number] [address] [place] [address], [place] [address] Apr, [facility] [address] [id number] [address] [place] [address], [place] [address] Apr, [facility] [address] [id number] [address] [place] [address], [place] [address] Apr, [facility] [address] [id number] [address] [place] [address], [place] [address] Apr, [facility] [address] [id number] [address] [place] [address], [place] [address] Apr, [facility] [address] [id number] [address] [place] [address], [place] [address] Mar, [facility] [address] [id number] [address] [place] [address], [place] [address] Mar, [facility] [address] [id number] [address] [place] [address], [place] [address] 31 Mar, 2013 [facility] [address] [id number] [address] [place] [address], [place] [address] Mar, 2013 [facility] [address] [id number] [address] [place] [address], [place] [address] 30 Mar, 2014 [facility] [address] [id number] [address] [place] [address], [place] [address] 30 Mar, 2014 [facility] [address] [id number] [address] [place] [address], [place] [address] Mar, [facility] [address] [id number] [address] [place] [address], [place] [address] Mar, [facility] [address] [id number] [address] [place] [address], [place] [address] Mar, [facility] [address] [id number] [address] [place] [address], [place] [address] Mar, [facility] [address] [id number] [address] [place] [address], [place] [address] Mar, [facility] [address] [id number] [address] [place] [address], [place] [address] Mar, [facility] [address] [id number] [address] [place] [address], [place] [address] Mar, [facility] [address] [id number] [address] [place] [address], [place] [address] Mar, [facility] [address] [id number] [address] [place] [address], [place] [address] Mar, [facility] [address] [id number] [address] [place] [address], [place] [address] Mar, [facility] [address] [id number] [address] [place] [address], [place] [address] Mar, [facility] [address] [id number] [address] [place] [address] Mar, [facility] [address] [id number] [address] [place] [address], [place] [address] Mar, [facility] [address] [id number] [address] [place] [address], [place] [address] Mar, [facility] [address] [id number] [address] [place] [address], [place] [address] 05 Sep, 2013 [facility] [address] [id number] [address] [place] [address], [place] [address] 05 Sep, 2013 [facility] [address] [id number] [address] [place] [address], [place] [address] 04 Feb, 2013 [facility] [address] [id number] [address] [place] [address], [place] [address] 04 Feb, 2013 [facility] [address] [id number] [address] [place] [address], [place] [address] Feb, 2013 [facility] [address] [id number] [address] [place] [address], [place] [address] Feb, 2013 [facility] [address] [id number] [address] [place] [address], [place] [address] Feb, 2013 [facility] [address] [id number] [address] [place] [address], [place] [address] Feb, 2013 [facility] [address] [id number] [address] [place] [address], [place] [address] Feb, 2013 [facility] [address] [id number] [address] [place] [address], [place] [address] Feb, 2013 [facility] [address] [id number] [address] [place] [address], [place] [address] Jan, [facility] [address] [id number] [address] [place] [address], [place] [address] Jan, [facility] [address] [id number] [address] [place] [address], [place] [address] Jan, [facility] [address] [id number] [facility] [place] [address] Jan, [facility] [address] [id number] [facility] [place] [address] Jan, [facility] [address] [id number] [facility] [place] [address] Jan, [facility] [address] [id number] [address] [place] [address], [place] [address] Jan, [facility] [address] [id number] [address] [place] [address], [place] [address] Jan, [facility] [address] [id number] [address] [place] [address], [place] [address] Jan, [facility] [address] [id number] [address] [place] [address], [place] [address] Jan, [facility] [address] [id number] [address] [place] [address], [place] [address] Jan, [facility] [address] [id number] [address] [place] [address], [place] [address] Jan, [facility] [address] [id number] [address] [place] [address], [place] [address] Dec, [facility] [address] [id number] [address] [place] [address], [place] [address] Dec, [facility] [address] [id number] [address] [place] [address], [place] [address] Dec, [facility] [address] [id number] [address] [place] [address], [place] [address] Dec, [facility] [address] [id number] [address] [place] [address], [place] [address] Dec, [facility] [address] [id number] [address] [place] [address], [place] [address] Dec, [facility] [address] [id number] [address] [place] [address], [place] [address] Dec, [facility] [address] [id number] [address] [place] [address], [place] [address] Dec, 2013 [facility] [address] [id number] [address] [place] [address], [place] [address] Dec, [facility] [address] [id number] [address] [place] [address], [place] [address] Dec, [facility] [address] [id number] [address] [place] [address], [place] [address] Dec, [facility] [address] [id number] [address] [place] [address], [place] [address] Dec, [facility] [address] [id number] [address] [place] [address], [place] [address] Nov, [facility] [address] [id number] [address] [place] [address], [place] [address] Nov, [facility] [address] [id number] [address] [place] [address], [place] [address] Nov, [facility] [address] [id number] [address] [place] [address], [place] [address] Nov, [facility] [address] [id number] [address] [place] [address], [place] [address] Nov, [facility] [address] [id number] [address] [place] [address], [place] [address] Nov, [facility] [address] [id number] [address] [place] [address], [place] [address] Nov, [facility] [address] [id number] [address] [place] [address], [place] [address] Nov, [facility] [address] [id number] [address] [place] [address], [place] [address] Nov, [facility] [address] [id number] [address] [place] [address], [place] [address] Nov, [facility] [address] [id number] [address] [place] [address], [place] [address] Nov, [facility] [address] [id number] [address] [place] [address], [place] [address] Nov, [facility] [address] [id number] [address] [place] [address], [place] [address] Nov, [facility] [address] [id number] [address] [place] [address], [place] [address] Nov, [facility] [address] [id number] [address] [place] [address], [place] [address] October, [facility] [address] [id number] [address] [place] [address], [place] [address] October, [facility] [address] [id number] [address] [place] [address], [place] [address] October, [facility] [address] [id number] [address] [place] [address], [place] [address] October, [facility] [address] [id number] [address] [place] [address], [place] [address] October, [facility] [address] [id number] [address] [place] [address], [place] [address] October, [facility] [address] [id number] [address] [place] [address], [place] [address] October, [facility] [address] [id number] [address] [place] [address], [place] [address] October, [facility] [address] [id number] [address] [place] [address], [place] [address] October, [facility] [address] [id number] [address] [place] [address], [place] [address] October, [facility] [address] [id number] [address] [place] [address], [place] [address] October, [facility] [address] [id number] [address] [place] [address], [place] [address] October, [facility] [address] [id number] [facility] [place] [address] Sep, [facility] [address] [id number] [facility] [place] [address] Sep, [facility] [address] [id number] [facility] [place] [address] Sep, [facility] [address] [id number] [address] [place] [address], [place] [address] Sep, [facility] [address] [id number] [address] [place] [address], [place] [address] Sep, [facility] [address] [id number] [address] [place] [address], [place] [address] Sep, [facility] [address] [id number] [address] [place] [address], [place] [address] Aug, [facility] [address] [id number] [address] [place] [address], [place] [address] Aug, [facility] [address] [id number] [address] [place] [address], [place] [address] Aug, [facility] [address] [id number] [address] [place] [address], [place] [address] Aug, [facility] [address] [id number] [address] [place] [address], [place] [address] Aug, [facility] [address] [id number] [address] [place] [address], [place] [address] Aug, [facility] [address] [id number] [address] [place] [address], [place] [address] Jul, [facility] [address] [id number] [address] [place] [address], [place] [address] Jul, [facility] [address] [id number] [address] [place] [address], [place] [address] Jul, [facility] [address] [id number] [address] [place] [address], [place] [address] Jul, [facility] [address] [id number] [address] [place] [address], [place] [address] Jul, [facility] [address] [id number] [address] [place] [address], [place] [address] Jul, [facility] [address] [id number] [address] [place] [address], [place] [address] Jul, [facility] [address] [id number] [address] [place] [address], [place] [address] Jul, [facility] [address] [id number] [address] [place] [address], [place] [address] Jul, [facility] [address] [id number] [address] [place] [address], [place] [address] Jul, [facility] [address] [id number] [address] [place] [address], [place] [address] Jun, [facility] [address] [id number] [address] [place] [address], [place] [address] Jun, [facility] [address] [id number] [address] [place] [address], [place] [address] Jun, [facility] [address] [id number] [address] [place] [address], [place] [address] Jun, [facility] [address] [id number] [address] [place] [address], [place] [address] Jun, [facility] [address] [id number] [address] [place] [address], [place] [address] Jun, [facility] [address] [id number] [address] [place] [address], [place] [address] Jun, [facility] [address] [id number] [address] [place] [address], [place] [address] Jun, [facility] [address] [id number] [address] [place] [address], [place] [address] May, [facility] [address] [id number] [address] [place] [address], [place] [address] May, [facility] [address] [id number] [address] [place] [address], [place] [address] May, [facility] [address] [id number] [address] [place] [address], [place] [address] May, [facility] [address] [id number] [address] [place] [address], [place] [address] May, [facility] [address] [id number] [address] [place] [address], [place] [address] May, [facility] [address] [id number] [address] [place] [address], [place] [address] May, [facility] [address] [id number] [address] [place] [address], [place] [address] May, [facility] [address] [id number] [address] [place] [address], [place] [address] Apr, [facility] [address] [id number] [address] [place] [address], [place] [address] Apr, [facility] [address] [id number] [address] [place] [address], [place] [address] Apr, [facility] [address] [id number] [address] [place] [address], [place] [address] Apr, [facility] [address] [id number] [address] [place] [address], [place] [address] Apr, [facility] [address] [id number] [address] [place] [address], [place] [address] Apr, [facility] [address] [id number] [address] [place] [address], [place] [address] Mar, [facility] [address] [id number] [address] [place] [address], [place] [address] Mar, [facility] [address] [id number] [address] [place] [address], [place] [address] Mar, [facility] [address] [id number] [address] [place] [address], [place] [address] Mar, [facility] [address] [id number] [address] [place] [address], [place] [address] Mar, [facility] [address] [id number] [address] [place] [address], [place] [address] Mar, [facility] [address] [id number] [address] [place] [address], [place] [address] Mar, [facility] [address] [id number] [address] [place] [address], [place] [address] 30 Feb, 2013 [facility] [address] [id number] [address] [place] [address], [place] [address] 30 Feb, 2013 [facility] [address] [id number] [address] [place] [address], [place] [address] Feb, [facility] [address] [id number] [address] [place] [address], [place] [address] Feb, [facility] [address] [id number] [address] [place] [address], [place] [address] Feb, [facility] [address] [id number] [address] [place] [address], [place] [address] Feb, [facility] [address] [id number] [address] [place] [address], [place] [address] Jan, [facility] [address] [id number] [address] [place] [address], [place] [address] Jan, [facility] [address] [id number] [address] [place] [address], [place] [address] Jan, [facility] [address] [id number] [address] [place] [address], [place] [address] Jan, [facility] [address] [id number] [address] [place] [address], [place] [address] Jan, [facility] [address] [id number] [address] [place] [address], [place] [address] Jan, [facility] [address] [id number] [address] [place] [address], [place] [address] Jan, [facility] [address] [id number] [address] [place] [address], [place] [address] Jan, [facility] [address] [id number] [address] [place] [address], [place] [address] Jan, [facility] [address] [id number] [address] [place] [address], [place] [address] Dec, [facility] [address] [id number] [address] [place] [address], [place] [address] Dec, [facility] [address] [id number] [address] [place] [address], [place] [address] Dec, [facility] [address] [id number] [address] [place] [address], [place] [address] Dec, [facility] [address] [id number] [address] [place] [address], [place] [address] Dec, [facility] [address] [id number] [address] [place] [address], [place] [address] Dec, [facility] [address] [id number] [address] [place] [address], [place] [address] Dec, [facility] [address] [id number] [address] [place] [address], [place] [address] Dec, [facility] [address] [id number] [address] [place] [address], [place] [address] Dec, [facility] [address] [id number] [address] [place] [address], [place] [address] Dec, [facility] [address] [id number] [address] [place] [address], [place] [address] Dec, [facility] [address] [id number] [address] [place] [address], [place] [address] Dec, [facility] [address] [id number] [address] [place] [address], [place] [address] Dec, [facility] [address] [id number] [address] [place] [address], [place] [address] Nov, [facility] [address] [id number] [address] [place] [address], [place] [address] Nov, [facility] [address] [id number] [address] [place] [address], [place] [address] Nov, [facility] [address] [id number] [address] [place] [address], [place] [address] Nov, [facility] [address] [id number] [address] [place] [address], [place] [address] October, [facility] [address] [id number] [address] [place] [address], [place] [address] October, [facility] [address] [id number] [address] [place] [address], [place] [address] October, [facility] [address] [id number] [address] [place] [address], [place] [address] October, [facility] [address] [id number] [address] [place] [address], [place] [address] October, [facility] [address] [id number] [address] [place] [address], [place] [address] October, [facility] [address] [id number] [address] [place] [address], [place] [address] Sep, [facility] [address] [id number] [address] [place] [address], [place] [address] Sep, [facility] [address] [id number] [address] [place] [address], [place] [address] Sep, [facility] [address] [id number] [address] [place] [address], [place] [address] Sep, [facility] [address] [id number] [address] [place] [address], [place] [address] 19 Sep, 2012 [facility] [address] [id number] [address] [place] [address], [place] [address] 16 Sep, 2012 [facility] [address] [id number] [address] [place] [address], [place] [address] Sep, [facility] [address] [id number] [address] [place] [address], [place] [address] Sep, [facility] [address] [id number] [address] [place] [address], [place] [address] Sep, [facility] [address] [id number] [address] [place] [address], [place] [address] Sep, [facility] [address] [id number] [address] [place] [address], [place] [address] Sep, [facility] [address] [id number] [address] [place] [address], [place] [address] Aug, [facility] [address] [id number] [address] [place] [address], [place] [address] Aug, [facility] [address] [id number] [address] [place] [address], [place] [address] 25 Aug, 2012 [facility] [address] [id number] [address] [place] [address], [place] [address] Aug, [facility] [address] [id number] [address] [place] [address], [place] [address] 19 Aug, 2012 [facility] [address] [id number] [address] [place] [address], [place] [address] 18 Aug, 2012 [facility] [address] [id number] [address] [place] [address], [place] [address] 17 Aug, 2012 [facility] [address] [id number] [address] [place] [address], [place] [address] 15 Aug, 2012 [facility] [address] [id number] [address] [place] [address], [place] [address] 15 Aug, 2012 [facility] [address] [id number] [address] [place] [address], [place] [address] Aug, [facility] [address] [id number] [address] [place] [address], [place] [address] Aug, [facility] [address] [id number] [address] [place] [address], [place] [address] Aug, [facility] [address] [id number] [address] [place] [address], [place] [address] Jul, [facility] [address] [id number] [address] [place] [address], [place] [address] Jul, [facility] [address] [id number] [address] [place] [address], [place] [address] Jul, [facility] [address] [id number] [address] [place] [address], [place] [address] Jul, [facility] [address] [id number] [address] [place] [address], [place] [address] Jul, [facility] [address] [id number] [address] [place] [address], [place] [address] Jul, [facility] [address] [id number] [address] [place] [address], [place] [address] Jul, [facility] [address] [id number] [address] [place] [address], [place] [address] Jul, [facility] [address] [id number] [address] [place] [address], [place] [address] Jul, [facility] [address] [id number] [address] [place] [address], [place] [address] Jul, [facility] [address] [id number] [address] [place] [address], [place] [address] May, [facility] [address] [id number] [id number] May, [facility] [address] [id number] [place] [address] May, [facility] [address] [id number] [address] [place] [address] May, [facility] [address] [id number] [address] [place] [id number] May, [facility] [address] [id number] [address] [place] [id number] Apr, [facility] [address] [id number] [place] [id number] Apr, [facility] [address] [id number] [address] [place] [id number] Apr, [facility] [address] [id number] [address] [place] [id number] Mar, [facility] [address] [id number] [place] [id number] Mar, [facility] [address] [id number] [address] [place] [phone] Mar, [facility] [address] [id number] [place] [id number] Feb, [facility] [address] [id number] [address] [place] [phone] Feb, [facility] [address] [id number] [address] [place] [phone] Feb, [facility] [address] [id number] [place] [id number] Feb, [facility] [address] [id number] [place] [id number] Feb, [facility] [address] [id number] [place] [id number] Jan, [facility] [address] [id number] [address] [place] [phone] Jan, [facility] [address] [id number] [place] [id number] Jan, [facility] [address] [id number] [place] [id number] Jan, [facility] [address] [id number] [place] [id number] Jan, [facility] [address] [facility] [id number] [place] [address] Jan, [facility] [address] [facility] [id number] [address] [place] [phone] Jan, [facility] [address] [facility] [id number] [address] [place] [id number] Aug, [facility] [address] [id number] [place] [id number] Aug, [facility] [address] [facility] [id number] [address] [place] [phone] Jul, [facility] [address] [facility] [id number] [address] [place] [phone] Jul, [facility] [address] [facility] [id number] [address] [place] [phone] Jul, [facility] [address] [id number] [place] [id number] Jul, 2011 [facility] [address] [facility] [id number] [address] [place] [id number] Jul, [facility] [address] [id number] [place] [id number] Jul, [facility] [address] [facility] [id number] [address] [place] [id number] Jul, [facility] [address] [id number] [place] [id number] Jul, [facility] [address] [id number] [place] [id number] Jul, [facility] [address] [id number] [place] [id number] Jul, [facility] [address] [facility] [id number] [address] [place] [phone] May, [facility] [place] [address] [id number] [address] [place] [id number] May, [facility] [place] [address] [id number] [address] [place] [id number] May, [facility] [place] [address] [id number] [address] [place] [id number] Apr, [facility] [place] [address] [id number] [address] [place] [phone] Jan, [facility] [place] [address] [id number] [address] [place] [phone] Jan, [facility] [place] [address] [id number] [address] [place] [id number] Dec, [facility] [place] [address] [id number] [address] [place] [id number] Dec, [facility] [place] [address] [id number] [address] [place] [phone] May, [facility] [place] [address] [id number] [address] [place] [phone] Mar, [facility] [place] [address] [id number] [address] [place] [id number] Mar, [facility] [place] [address] [id number] [address] [place] [id number] 14 Jan, 2009 IMMUNIZATIONS No Known Immunizations [...]
--- OUTSIDE RECORDS SUMMARY | 2020-01-28 13:18 | XMS REPORT ---
Author Author Heydi Candelario Doctor Organization [facility] Address Unknown Phone Unavailable Care Team Providers Care School Office Manager Name Role Phone Migration, Doctor Unavailable Unavailable PROBLEMS Type Condition ICD9-CM Code [id number] Code Onset Dates Condition S tatus SNOMED Code Problem Chronic pain syndrome G89.4 Active 349140478 Problem Sore throat J02.9 Active 93308717 3 Problem Choriocarcinoma C58 Active 1881 22328 Problem care home current use of anticoagulant Z79.01 Active 668291551 Problem History of venous thromboembolism V12.51 Active 629223948 Problem Cellulitis of unspecified part of limb L03.119 Active 584977060 Problem Gastroesophageal reflux disease without esophagitis K21.9 Active 463572997 Problem History of pulmonary embolism Z86.711 Active 809702572 Problem Pseudotumor cerebri G93.2 Active 52489036 Problem History of DVT (deep vein thrombosis) Z86.718 Active 382949311 ALLERGIES No Information ENCOUNTERS Encounter Location Date Diagnosis [place] [address] [place] [id number] [address] [place] [address] 14 Nov, 2019 Encounter for screening labo ratory testing for COVID-19 virus Z11.59 [place] [address] [place] [id number] [address] [place] [address] Apr, 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 [place] [facility] [place] [id number] [address] [place] [address] Apr, care home current use of ant icoagulant Z79.01 [place] [address] [address] [facility] [place] [id number] [address] [place] [address] Apr, Cellulitis of unspecified pa rt of limb L03.119 ; Allergic contact dermatitis due to adhesives L23.1 and Chronic pain syndrome G89.4 [place] [address] [address] Apr, [facility] [address] [address] Apr, care home current use of ant icoagulant Z79.01 ; Cellulitis of unspecified part of limb L03.119 ; Chronic pain syndrome G89.4 and Anxiety F41.9 [place] [address] [address] Apr, [facility] [address] [address] Apr, [place] [address] [address] Mar, [place] [address] [address] Mar, [place] [address] [address] Mar, Sore throat J02.9 ; Gastroes ophageal reflux disease without esophagitis K21.9 ; Pseudotumor cerebri G93.2 ; Chronic pain syndrome G89.4 ; Choriocarcinoma C58 ; History of pulmonary embolism Z86.711 ; History of DVT (deep vein thrombosis) Z86.718 ; Anxiety F41.9 and Tachycardia R00.0 [place] [address] [address] [place] [id number] [address] [place] [address] Feb, Anxiety 300.00 and Chronic p ain 338.29 [facility] [address] [place] [id number] [address] [place] [address] Feb, [facility] [address] [address] Feb, [facility] [address] [place] [id number] [address] [place] [address] Jan, 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 therapy V58.61 and Dysuria 788.1 [place] [address] [place] [id number] [address] [place] [address] Jan, Dysuria 788.1 [place] [address] [address] Jan, Anxiety 300.00 and Chronic p ain 338.29 [place] [address] [address] Jan, [place] [address] [address] Jan, [place] [address] [address] Jan, [place] [address] [address] Dec, Weakness 780.79 [place] [address] [address] Dec, 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 therapy V58.[address] [address] Dec, Palpitations 785.1 ; Tremor 781.0 ; Weakness 780.79 ; care home current use of anticoagulant therapy V58.61 and Yeast vaginitis 112.1 [place] [address] [place] [id number] [address] [place] [address] Dec, [place] [address] [address] Dec, Cervicalgia 723.1 ; Tachycar yoseph 785.0 ; Pseudotumor cerebri 348.2 and History of venous thromboembolism V12.51 [place] [address] [address] Nov, [place] [address] [place] [id number] [address] [place] [address] Nov, [place] [address] [place] [address] [place] [address] 24 Nov, 2014 Tachycardia 785.0 ; Pseudotu mor cerebri 348.2 ; Anxiety 300.00 and History of venous thromboembolism V12.51 [facility] [address] [id number] [address] [place] [address] 19 Nov, 2014 [facility] [address] [id number] [address] [place] [address] 18 Nov, 2014 [facility] [address] [id number] [address] [place] [address] 16 Nov, 2014 [facility] [address] [id number] [address] [place] [address] Nov, [facility] [address] [facility] [place] [id number] [address] [place] [address] Nov, [facility] [address] [facility] [place] [id number] [address] [place] [address] Nov, [facility] [address] [id number] [address] [place] [address] Nov, [facility] [address] [facility] [place] [id number] [address] [place] [address] October, [facility] [address] [facility] [place] [id number] [address] [place] [address] October, [facility] [address] [facility] [place] [id number] [address] [place] [address] October, Pain in thoracic spine 724.1 and Tachycardia 785.0 [facility] [address] [id number] [address] [place] [address] October, [facility] [address] [facility] [place] [id number] [address] [place] [address] October, [facility] [address] [facility] [place] [id number] [address] [place] [address] 14 Sep, 2014 [facility] [address] [facility] [place] [id number] [address] [place] [address] Sep, [facility] [address] [id number] [address] [place] [address], [place] [address] Aug, [facility] [address] [id number] [address] [place] [address], [place] [address] Aug, [facility] [address] [id number] [address] [place] [address], [place] [address] Aug, [facility] [address] [id number] [address] [place] [address], [place] [address] Aug, [facility] [address] [id number] [address] [place] [address], [place] [address] Aug, [facility] [address] [id number] [address] [place] [address], [place] [address] Aug, [facility] [address] [id number] [address] [place] [address], [place] [address] Aug, [facility] [address] [id number] [address] [place] [address], [place] [address] Aug, [facility] [address] [id number] [address] [place] [address], [place] [address] Aug, [facility] [address] [id number] [address] [place] [address], [place] [address] Aug, [facility] [address] [id number] [address] [place] [address], [place] [address] Aug, [facility] [address] [id number] [address] [place] [address], [place] [address] Aug, [facility] [address] [id number] [address] [place] [address], [place] [address] Jul, [facility] [address] [id number] [address] [place] [address], [place] [address] Jul, [facility] [address] [id number] [address] [place] [address], [place] [address] Jul, [facility] [address] [id number] [address] [place] [address], [place] [address] 23 Jul, 2014 [facility] [address] [id number] [address] [place] [address], [place] [address] 23 Jul, 2014 [facility] [address] [id number] [address] [place] [address], [place] [address] 23 Jul, 2014 [facility] [address] [id number] [address] [place] [address], [place] [address] 23 Jul, 2014 [facility] [address] [id number] [address] [place] [address], [place] [address] 23 Jul, 2014 [facility] [address] [id number] [address] [place] [address], [place] [address] 20 Jul, 2014 [facility] [address] [id number] [address] [place] [address], [place] [address] 20 Jul, 2014 [facility] [address] [id number] [address] [place] [address] 19 Jul, 2014 [facility] [address] [id number] [address] [place] [address], [place] [address] 19 Jul, 2014 [facility] [address] [id number] [address] [place] [address] 17 Jul, 2014 [facility] [address] [id number] [address] [place] [address] 17 Jul, 2014 [facility] [address] [id number] [address] [place] [address] 16 Jul, 2014 [facility] [address] [id number] [address] [place] [address], [place] [address] 16 Jul, 2014 [facility] [address] [id number] [address] [place] [address] 16 Jul, 2014 [facility] [address] [id number] [address] [place] [address] 16 Jul, 2014 [facility] [address] [id number] [address] [place] [address], [place] [address] 13 Jul, 2014 [facility] [address] [id number] [address] [place] [address], [place] [address] Jul, 2014 [facility] [address] [id number] [address] [place] [address], [place] [address] Jul, 2014 [facility] [address] [id number] [address] [place] [address], [place] [address] Jul, 2014 [facility] [address] [id number] [address] [place] [address], [place] [address] Jul, 2014 [facility] [address] [id number] [address] [place] [address], [place] [address] Jul, [facility] [address] [id number] [address] [place] [address], [place] [address] Jul, 2014 [facility] [address] [id number] [address] [place] [address], [place] [address] Jul, [facility] [address] [id number] [address] [place] [address], [place] [address] Jul, [facility] [address] [id number] [address] [place] [address], [place] [address] Jul, [facility] [address] [id number] [address] [place] [address] Jul, [facility] [address] [id number] [address] [place] [address] Jul, [facility] [address] [id number] [address] [place] [address], [place] [address] Jun, [facility] [address] [id number] [address] [place] [address] Jun, [facility] [address] [id number] [address] [place] [address] Jun, [facility] [address] [id number] [address] [place] [address] Jun, [facility] [address] [id number] [address] [place] [address], [place] [address] Jun, [facility] [address] [id number] [address] [place] [address], [place] [address] Jun, [facility] [address] [id number] [address] [place] [address], [place] [address] Jun, [facility] [address] [id number] [address] [place] [address], [place] [address] Jun, [facility] [address] [id number] [address] [place] [address], [place] [address] Jun, [facility] [address] [id number] [address] [place] [address], [place] [address] Jun, [facility] [address] [id number] [address] [place] [address], [place] [address] Jun, [facility] [address] [id number] [address] [place] [address], [place] [address] Jun, [facility] [address] [id number] [address] [place] [address], [place] [address] Jun, [facility] [address] [id number] [address] [place] [address], [place] [address] Jun, [facility] [address] [id number] [address] [place] [address], [place] [address] Jun, [facility] [address] [id number] [address] [place] [address], [place] [address] Jun, [facility] [address] [id number] [address] [place] [address], [place] [address] Jun, [facility] [address] [id number] [address] [place] [address], [place] [address] Jun, [facility] [address] [id number] [address] [place] [address], [place] [address] Jun, [facility] [address] [id number] [address] [place] [address], [place] [address] Jun, [facility] [address] [id number] [address] [place] [address], [place] [address] May, [facility] [address] [id number] [address] [place] [address], [place] [address] May, [facility] [address] [id number] [address] [place] [address], [place] [address] May, [facility] [address] [id number] [address] [place] [address], [place] [address] May, [facility] [address] [id number] [address] [place] [address], [place] [address] May, [facility] [address] [id number] [address] [place] [address], [place] [address] May, [facility] [address] [id number] [address] [place] [address], [place] [address] May, [facility] [address] [id number] [address] [place] [address], [place] [address] May, [facility] [address] [id number] [address] [place] [address], [place] [address] May, [facility] [address] [id number] [address] [place] [address], [place] [address] May, [facility] [address] [id number] [address] [place] [address], [place] [address] May, [facility] [address] [id number] [address] [place] [address], [place] [address] 18 May, 2014 [facility] [address] [id number] [address] [place] [address], [place] [address] 18 May, 2014 [facility] [address] [id number] [address] [place] [address], [place] [address] 17 May, 2014 [facility] [address] [id number] [address] [place] [address], [place] [address] 16 May, 2014 [facility] [address] [id number] [address] [address] 16 May, 2014 [facility] [address] [id number] [address] [address] 15 May, 2014 [facility] [address] [id number] [address] [place] [address], [place] [address] 15 May, 2014 [facility] [address] [id number] [address] [place] [address], [place] [address] May, [facility] [address] [id number] [address] [place] [address], [place] [address] May, [facility] [address] [id number] [address] [place] [address], [place] [address] May, [facility] [address] [id number] [address] [place] [address], [place] [address] May, [facility] [address] [id number] [address] [place] [address], [place] [address] May, [facility] [address] [id number] [address] [place] [address], [place] [address] May, [facility] [address] [id number] [address] [place] [address], [place] [address] May, [facility] [address] [id number] [address] [place] [address], [place] [address] May, [facility] [address] [id number] [address] [place] [address], [place] [address] May, [facility] [address] [id number] [address] [place] [address], [place] [address] May, [facility] [address] [id number] [address] [place] [address], [place] [address] May, [facility] [address] [id number] [address] [place] [address], [place] [address] May, [facility] [address] [id number] [address] [place] [address], [place] [address] 05 May, 2014 [facility] [address] [id number] [address] [place] [address], [place] [address] May, [facility] [address] [id number] [address] [place] [address], [place] [address] May, [facility] [address] [id number] [address] [place] [address], [place] [address] May, [facility] [address] [id number] [address] [place] [address], [place] [address] Apr, [facility] [address] [id number] [address] [place] [address], [place] [address] Apr, [facility] [address] [id number] [address] [place] [address], [place] [address] Apr, [facility] [address] [id number] [address] [place] [address], [place] [address] Apr, [facility] [address] [id number] [address] [place] [address], [place] [address] Apr, [facility] [address] [id number] [address] [place] [address], [place] [address] Apr, [facility] [address] [id number] [address] [place] [address], [place] [address] Apr, [facility] [address] [id number] [address] [place] [address], [place] [address] Apr, [facility] [address] [id number] [address] [place] [address], [place] [address] Apr, [facility] [address] [id number] [address] [place] [address], [place] [address] Apr, [facility] [address] [id number] [address] [place] [address], [place] [address] Mar, [facility] [address] [id number] [address] [place] [address], [place] [address] Mar, [facility] [address] [id number] [address] [place] [address], [place] [address] 31 Mar, 2013 [facility] [address] [id number] [address] [place] [address], [place] [address] Mar, 2013 [facility] [address] [id number] [address] [place] [address], [place] [address] 30 Mar, 2014 [facility] [address] [id number] [address] [place] [address], [place] [address] 30 Mar, 2014 [facility] [address] [id number] [address] [place] [address], [place] [id number] Mar, [facility] [address] [id number] [address] [place] [address], [place] [address] Mar, [facility] [address] [id number] [address] [place] [address], [place] [address] Mar, [facility] [address] [id number] [address] [place] [address], [place] [address] Mar, [facility] [address] [id number] [address] [place] [address], [place] [address] Mar, [facility] [address] [id number] [address] [place] [address], [place] [address] Mar, [facility] [address] [id number] [address] [place] [address], [place] [address] Mar, [facility] [address] [id number] [address] [place] [address], [place] [address] Mar, [facility] [address] [id number] [address] [place] [address], [place] [address] Mar, [facility] [address] [id number] [address] [place] [address], [place] [address] Mar, [facility] [address] [id number] [address] [place] [address], [place] [address] Mar, [facility] [address] [id number] [address] [place] [address] Mar, [facility] [address] [id number] [address] [place] [address], [place] [address] Mar, [facility] [address] [id number] [address] [place] [address], [place] [address] Mar, [facility] [address] [id number] [address] [place] [address], [place] [address] 05 Sep, 2013 [facility] [address] [id number] [address] [place] [address], [place] [address] 05 Sep, 2013 [facility] [address] [id number] [address] [place] [address], [place] [address] 04 Feb, 2013 [facility] [address] [id number] [address] [place] [address], [place] [address] 04 Feb, 2013 [facility] [address] [id number] [address] [place] [address], [place] [address] Feb, 2013 [facility] [address] [id number] [address] [place] [address], [place] [address] Feb, 2013 [facility] [address] [id number] [address] [place] [address], [place] [address] Feb, 2013 [facility] [address] [id number] [address] [place] [address], [place] [address] Feb, 2013 [facility] [address] [id number] [address] [place] [address], [place] [address] Feb, 2013 [facility] [address] [id number] [address] [place] [address], [place] [address] Feb, 2013 [facility] [address] [id number] [address] [place] [address], [place] [address] Jan, [facility] [address] [id number] [address] [place] [address], [place] [address] Jan, [facility] [address] [id number] [address] [place] [address], [place] [address] Jan, [facility] [address] [id number] [address] [address] Jan, [facility] [address] [id number] [address] [address] Jan, [facility] [address] [id number] [address] [address] Jan, [facility] [address] [id number] [address] [place] [address], [place] [address] Jan, [facility] [address] [id number] [address] [place] [address], [place] [address] Jan, [facility] [address] [id number] [address] [place] [address], [place] [address] Jan, [facility] [address] [id number] [address] [place] [address], [place] [address] Jan, [facility] [address] [id number] [address] [place] [address], [place] [address] Jan, [facility] [address] [id number] [address] [place] [address], [place] [address] Jan, [facility] [address] [id number] [address] [place] [address], [place] [address] Dec, [facility] [address] [id number] [address] [place] [address], [place] [address] Dec, [facility] [address] [id number] [address] [place] [address], [place] [address] Dec, [facility] [address] [id number] [address] [place] [address], [place] [address] Dec, [facility] [address] [id number] [address] [place] [address], [place] [address] Dec, [facility] [address] [id number] [address] [place] [address], [place] [address] Dec, [facility] [address] [id number] [address] [place] [address], [place] [address] Dec, [facility] [address] [id number] [address] [place] [address], [place] [address] Dec, 2013 [facility] [address] [id number] [address] [place] [address], [place] [address] Dec, [facility] [address] [id number] [address] [place] [address], [place] [address] Dec, [facility] [address] [id number] [address] [place] [address], [place] [address] Dec, [facility] [address] [id number] [address] [place] [address], [place] [address] Dec, [facility] [address] [id number] [address] [place] [address], [place] [address] Nov, [facility] [address] [id number] [address] [place] [address], [place] [address] Nov, [facility] [address] [id number] [address] [place] [address], [place] [address] Nov, [facility] [address] [id number] [address] [place] [address], [place] [address] Nov, [facility] [address] [id number] [address] [place] [address], [place] [address] Nov, [facility] [address] [id number] [address] [place] [address], [place] [address] Nov, [facility] [address] [id number] [address] [place] [address], [place] [address] Nov, [facility] [address] [id number] [address] [place] [address], [place] [address] Nov, [facility] [address] [id number] [address] [place] [address], [place] [address] Nov, [facility] [address] [id number] [address] [place] [address], [place] [address] Nov, [facility] [address] [id number] [address] [place] [address], [place] [address] Nov, [facility] [address] [id number] [address] [place] [address], [place] [address] Nov, [facility] [address] [id number] [address] [place] [address], [place] [address] Nov, [facility] [address] [id number] [address] [place] [address], [place] [address] Nov, [facility] [address] [id number] [address] [place] [address], [place] [address] October, [facility] [address] [id number] [address] [place] [address], [place] [address] October, [facility] [address] [id number] [address] [place] [address], [place] [address] October, [facility] [address] [id number] [address] [place] [address], [place] [address] October, [facility] [address] [id number] [address] [place] [address], [place] [address] October, [facility] [address] [id number] [address] [place] [address], [place] [address] October, [facility] [address] [id number] [address] [place] [address], [place] [address] October, [facility] [address] [id number] [address] [place] [address], [place] [address] October, [facility] [address] [id number] [address] [place] [address], [place] [address] October, [facility] [address] [id number] [address] [place] [address], [place] [address] October, [facility] [address] [id number] [address] [place] [address], [place] [address] October, [facility] [address] [id number] [address] [place] [address], [place] [address] October, [facility] [address] [id number] [address] [address] Sep, [facility] [address] [id number] [address] [address] Sep, [facility] [address] [id number] [address] [address] Sep, [facility] [address] [id number] [address] [place] [address], [place] [address] Sep, [facility] [address] [id number] [address] [place] [address], [place] [address] Sep, [facility] [address] [id number] [address] [place] [address], [place] [address] Sep, [facility] [address] [id number] [address] [place] [address], [place] [address] Aug, [facility] [address] [id number] [address] [place] [address], [place] [address] Aug, [facility] [address] [id number] [address] [place] [address], [place] [address] Aug, [facility] [address] [id number] [address] [place] [address], [place] [address] Aug, [facility] [address] [id number] [address] [place] [address], [place] [address] Aug, [facility] [address] [id number] [address] [place] [address], [place] [address] Aug, [facility] [address] [id number] [address] [place] [address], [place] [address] Jul, [facility] [address] [id number] [address] [place] [address], [place] [address] Jul, [facility] [address] [id number] [address] [place] [address], [place] [address] Jul, [facility] [address] [id number] [address] [place] [address], [place] [address] Jul, [facility] [address] [id number] [address] [place] [address], [place] [address] Jul, [facility] [address] [id number] [address] [place] [address], [place] [address] Jul, [facility] [address] [id number] [address] [place] [address], [place] [address] Jul, [facility] [address] [id number] [address] [place] [address], [place] [address] Jul, [facility] [address] [id number] [address] [place] [address], [place] [address] Jul, [facility] [address] [id number] [address] [place] [address], [place] [address] Jul, [facility] [address] [id number] [address] [place] [address], [place] [address] Jun, [facility] [address] [id number] [address] [place] [address], [place] [address] Jun, [facility] [address] [id number] [address] [place] [address], [place] [address] Jun, [facility] [address] [id number] [address] [place] [address], [place] [address] Jun, [facility] [address] [id number] [address] [place] [address], [place] [address] Jun, [facility] [address] [id number] [address] [place] [address], [place] [address] Jun, [facility] [address] [id number] [address] [place] [address], [place] [address] Jun, [facility] [address] [id number] [address] [place] [address], [place] [address] Jun, [facility] [address] [id number] [address] [place] [address], [place] [address] May, [facility] [address] [id number] [address] [place] [address], [place] [address] May, [facility] [address] [id number] [address] [place] [address], [place] [address] May, [facility] [address] [id number] [address] [place] [address], [place] [address] May, [facility] [address] [id number] [address] [place] [address], [place] [address] May, [facility] [address] [id number] [address] [place] [address], [place] [address] May, [facility] [address] [id number] [address] [place] [address], [place] [address] May, [facility] [address] [id number] [address] [place] [address], [place] [address] May, [facility] [address] [id number] [address] [place] [address], [place] [address] Apr, [facility] [address] [id number] [address] [place] [address], [place] [address] Apr, [facility] [address] [id number] [address] [place] [address], [place] [address] Apr, [facility] [address] [id number] [address] [place] [address], [place] [address] Apr, [facility] [address] [id number] [address] [place] [address], [place] [address] Apr, [facility] [address] [id number] [address] [place] [address], [place] [address] Apr, [facility] [address] [id number] [address] [place] [address], [place] [address] Mar, [facility] [address] [id number] [address] [place] [address], [place] [address] Mar, [facility] [address] [id number] [address] [place] [address], [place] [address] Mar, [facility] [address] [id number] [address] [place] [address], [place] [address] Mar, [facility] [address] [id number] [address] [place] [address], [place] [address] Mar, [facility] [address] [id number] [address] [place] [address], [place] [address] Mar, [facility] [address] [id number] [address] [place] [address], [place] [address] Mar, [facility] [address] [id number] [address] [place] [address], [place] [address] 30 Feb, 2013 [facility] [address] [id number] [address] [place] [address], [place] [address] 30 Feb, 2013 [facility] [address] [id number] [address] [place] [address], [place] [address] Feb, [facility] [address] [id number] [address] [place] [address], [place] [address] Feb, [facility] [address] [id number] [address] [place] [address], [place] [address] Feb, [facility] [address] [id number] [address] [place] [address], [place] [address] Feb, [facility] [address] [id number] [address] [place] [address], [place] [address] Jan, [facility] [address] [id number] [address] [place] [address], [place] [address] Jan, [facility] [address] [id number] [address] [place] [address], [place] [address] Jan, [facility] [address] [id number] [address] [place] [address], [place] [address] Jan, [facility] [address] [id number] [address] [place] [address], [place] [address] Jan, [facility] [address] [id number] [address] [place] [address], [place] [address] Jan, [facility] [address] [id number] [address] [place] [address], [place] [address] Jan, [facility] [address] [id number] [address] [place] [address], [place] [address] Jan, [facility] [address] [id number] [address] [place] [address], [place] [address] Jan, [facility] [address] [id number] [address] [place] [address], [place] [address] Dec, [facility] [address] [id number] [address] [place] [address], [place] [address] Dec, [facility] [address] [id number] [address] [place] [address], [place] [address] Dec, [facility] [address] [id number] [address] [place] [address], [place] [address] Dec, [facility] [address] [id number] [address] [place] [address], [place] [address] Dec, [facility] [address] [id number] [address] [place] [address], [place] [address] Dec, [facility] [address] [id number] [address] [place] [address], [place] [address] Dec, [facility] [address] [id number] [address] [place] [address], [place] [address] Dec, [facility] [address] [id number] [address] [place] [address], [place] [address] Dec, [facility] [address] [id number] [address] [place] [address], [place] [address] Dec, [facility] [address] [id number] [address] [place] [address], [place] [address] Dec, [facility] [address] [id number] [address] [place] [address], [place] [address] Dec, [facility] [address] [id number] [address] [place] [address], [place] [address] Dec, [facility] [address] [id number] [address] [place] [address], [place] [address] Nov, [facility] [address] [id number] [address] [place] [address], [place] [address] Nov, [facility] [address] [id number] [address] [place] [address], [place] [address] Nov, [facility] [address] [id number] [address] [place] [address], [place] [address] Nov, [facility] [address] [id number] [address] [place] [address], [place] [address] October, [facility] [address] [id number] [address] [place] [address], [place] [address] October, [facility] [address] [id number] [address] [place] [address], [place] [address] October, [facility] [address] [id number] [address] [place] [address], [place] [address] October, [facility] [address] [id number] [address] [place] [address], [place] [address] October, [facility] [address] [id number] [address] [place] [address], [place] [address] October, [facility] [address] [id number] [address] [place] [address], [place] [address] Sep, [facility] [address] [id number] [address] [place] [address], [place] [address] Sep, [facility] [address] [id number] [address] [place] [address], [place] [address] Sep, [facility] [address] [id number] [address] [place] [address], [place] [address] Sep, [facility] [address] [id number] [address] [place] [address], [place] [address] 19 Sep, 2012 [facility] [address] [id number] [address] [place] [address], [place] [address] 16 Sep, 2012 [facility] [address] [id number] [address] [place] [address], [place] [address] Sep, [facility] [address] [id number] [address] [place] [address], [place] [address] Sep, [facility] [address] [id number] [address] [place] [address], [place] [address] Sep, [facility] [address] [id number] [address] [place] [address], [place] [address] Sep, [facility] [address] [id number] [address] [place] [address], [place] [address] Sep, [facility] [address] [id number] [address] [place] [address], [place] [address] Aug, [facility] [address] [id number] [address] [place] [address], [place] [address] Aug, [facility] [address] [id number] [address] [place] [address], [place] [address] 25 Aug, 2012 [facility] [address] [id number] [address] [place] [address], [place] [address] Aug, [facility] [address] [id number] [address] [place] [address], [place] [address] 19 Aug, 2012 [facility] [address] [id number] [address] [place] [address], [place] [address] 18 Aug, 2012 [facility] [address] [id number] [address] [place] [address], [place] [address] 17 Aug, 2012 [facility] [address] [id number] [address] [place] [address], [place] [address] 15 Aug, 2012 [facility] [address] [id number] [address] [place] [address], [place] [address] 15 Aug, 2012 [facility] [address] [id number] [address] [place] [address], [place] [address] Aug, [facility] [address] [id number] [address] [place] [address], [place] [address] Aug, [facility] [address] [id number] [address] [place] [address], [place] [address] Aug, [facility] [address] [id number] [address] [place] [address], [place] [address] Jul, [facility] [address] [id number] [address] [place] [address], [place] [address] Jul, [facility] [address] [id number] [address] [place] [address], [place] [address] Jul, [facility] [address] [id number] [address] [place] [address], [place] [address] Jul, [facility] [address] [id number] [address] [place] [address], [place] [address] Jul, [facility] [address] [id number] [address] [place] [address], [place] [address] Jul, [facility] [address] [id number] [address] [place] [address], [place] [address] Jul, [facility] [address] [id number] [address] [place] [address], [place] [address] Jul, [facility] [address] [id number] [address] [place] [address], [place] [address] Jul, [facility] [address] [id number] [address] [place] [address], [place] [address] Jul, [facility] [address] [id number] [address] [place] [address], [place] [id number] May, [facility] [address] [id number] [place] [id number] May, [facility] [address] [id number] [address] [address] May, [facility] [address] [id number] [address] [place] [id number] May, [facility] [address] [id number] [address] [place] [id number] May, [facility] [address] [id number] [address] [place] [id number] Apr, [facility] [address] [id number] [place] [id number] Apr, [facility] [address] [id number] [address] [place] [id number] Apr, [facility] [address] [id number] [address] [place] [id number] Mar, [facility] [address] [id number] [place] [id number] Mar, [facility] [address] [id number] [address] [place] [id number] Mar, [facility] [address] [id number] [place] [id number] Feb, [facility] [address] [id number] [address] [place] [id number] Feb, [facility] [address] [id number] [address] [place] [id number] Feb, [facility] [address] [id number] [place] [id number] Feb, [facility] [address] [id number] [place] [id number] Feb, [facility] [address] [id number] [place] [id number] Jan, [facility] [address] [id number] [address] [place] [id number] Jan, [facility] [place] [address] [id number] [place] [id number] Jan, [facility] [address] [id number] [place] [id number] Jan, [facility] [address] [id number] [place] [id number] Jan, [facility] [address] [facility] [place] [id number] [address] [address] Jan, [facility] [address] [facility] [id number] [address] [place] [id number] Jan, [facility] [address] [facility] [place] [id number] [address] [place] [id number] Aug, [facility] [place] [address] [id number] [place] [id number] Aug, [facility] [address] [facility] [place] [id number] [address] [place] [id number] Jul, [facility] [address] [facility] [place] [id number] [address] [place] [id number] Jul, [facility] [address] [facility] [place] [id number] [address] [place] [id number] Jul, [facility] [address] [id number] [place] [id number] Jul, 2011 [facility] [address] [facility] [place] [id number] [address] [place] [id number] Jul, [facility] [address] [id number] [place] [id number] Jul, [facility] [address] [facility] [place] [id number] [address] [place] [id number] Jul, [facility] [address] [id number] [place] [id number] Jul, [facility] [address] [id number] [place] [id number] Jul, [facility] [address] [id number] [place] [id number] Jul, [facility] [address] [facility] [place] [id number] [address] [place] [id number] May, [facility] [address] [id number] [address] [place] [id number] May, [facility] [address] [id number] [address] [place] [id number] May, [facility] [address] [id number] [address] [place] [id number] Apr, [facility] [address] [id number] [address] [place] [id number] Jan, [facility] [address] [id number] [address] [place] [id number] Jan, [facility] [address] [id number] [address] [place] [id number] Dec, [facility] [address] [id number] [address] [place] [id number] Dec, [facility] [address] [id number] [address] [place] [id number] May, [facility] [address] [id number] [address] [place] [id number] Mar, [facility] [address] [id number] [address] [place] [id number] Mar, [facility] [address] [id number] [address] [place] [id number] 14 Jan, 2009 IMMUNIZATIONS No Known Immunizations [...]
--- OUTSIDE RECORDS SUMMARY | 2020-01-28 13:19 | XMS REPORT ---
Author Author Heydi Candelario Doctor Organization [facility] Address Unknown Phone Unavailable Care Team Providers Care Tool Crib Manager Name Role Phone Migration, Doctor Unavailable Unavailable PROBLEMS Type Condition ICD9-CM Code SJS23-FP Code Onset Dates Condition S tatus SNOMED Code Problem Chronic pain syndrome G89.4 Active 026622508 Problem Sore throat J02.9 Active 78326664 3 Problem Choriocarcinoma C58 Active 1881 36935 Problem nursing home current use of anticoagulant Z79.01 Active 732571919 Problem History of venous thromboembolism V12.51 Active 747847902 Problem Cellulitis of unspecified part of limb L03.119 Active 940954809 Problem Gastroesophageal reflux disease without esophagitis K21.9 Active 832054126 Problem History of pulmonary embolism Z86.711 Active 632199331 Problem Pseudotumor cerebri G93.2 Active 24910969 Problem History of DVT (deep vein thrombosis) Z86.718 Active 448883995 ALLERGIES No Information ENCOUNTERS Encounter Location Date Diagnosis [place] [address] [place] [id number] [address] [place] [address] 14 Nov, 2019 Encounter for screening labo ratory testing for COVID-19 virus Z11.59 [place] [address] [place] [id number] [address] [place] [address] Apr, 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 [place] [address] [facility] [id number] [address] [place] [address] Apr, nursing home current use of ant icoagulant Z79.01 [place] [address] [facility] [id number] [address] [place] [address] Apr, Cellulitis of unspecified pa rt of limb L03.119 ; Allergic contact dermatitis due to adhesives L23.1 and Chronic pain syndrome G89.4 [place] [address] [address] Apr, [facility] [address] [address] Apr, nursing home current use of ant icoagulant Z79.01 ; Cellulitis of unspecified part of limb L03.119 ; Chronic pain syndrome G89.4 and Anxiety F41.9 [place] [address] [address] Apr, [facility] [address] [address] Apr, [place] [address] [address] Mar, [place] [address] [address] Mar, [place] [address] [address] Mar, Sore throat J02.9 ; Gastroes ophageal reflux disease without esophagitis K21.9 ; Pseudotumor cerebri G93.2 ; Chronic pain syndrome G89.4 ; Choriocarcinoma C58 ; History of pulmonary embolism Z86.711 ; History of DVT (deep vein thrombosis) Z86.718 ; Anxiety F41.9 and Tachycardia R00.0 [place] [address] [place] [id number] [address] [place] [address] Feb, Anxiety 300.00 and Chronic p ain 338.29 [facility] [address] [place] [id number] [address] [place] [address] Feb, [facility] [address] [address] Feb, [facility] [address] [place] [id number] [address] [place] [address] Jan, 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.61 and Dysuria 788.1 [place] [address] [place] [id number] [address] [place] [address] Jan, Dysuria 788.1 [place] [address] [address] Jan, Anxiety 300.00 and Chronic p ain 338.29 [place] [address] [address] Jan, [place] [address] [address] Jan, [place] [address] [address] Jan, [place] [address] [address] Dec, Weakness 780.79 [place] [address] [address] Dec, 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.[address] [address] Dec, Palpitations 785.1 ; Tremor 781.0 ; Weakness 780.79 ; nursing home current use of anticoagulant therapy V58.61 and Yeast vaginitis 112.1 [place] [address] [place] [id number] [place] [address] Dec, [place] [address] [address] Dec, Cervicalgia 723.1 ; Tachycar yoseph 785.0 ; Pseudotumor cerebri 348.2 and History of venous thromboembolism V12.51 [place] [address] [address] Nov, [place] [address] [place] [id number] [place] [address] Nov, [place] [address] [place] [id number] [place] [address] 24 Nov, 2014 Tachycardia 785.0 ; Pseudotu mor cerebri 348.2 ; Anxiety 300.00 and History of venous thromboembolism V12.51 [facility] [address] [id number] [address] [place] [address] 19 Nov, 2014 [facility] [address] [id number] [address] [place] [address] 18 Nov, 2014 [facility] [address] [id number] [address] [place] [address] 16 Nov, 2014 [facility] [address] [id number] [address] [place] [address] Nov, [facility] [address] [facility] [id number] [address] [place] [address] Nov, [facility] [address] [facility] [id number] [address] [place] [address] Nov, [facility] [address] [id number] [address] [place] [address] Nov, [facility] [address] [facility] [id number] [address] [place] [address] October, [facility] [address] [facility] [id number] [address] [place] [address] October, [facility] [address] [facility] [id number] [address] [place] [address] October, Pain in thoracic spine 724.1 and Tachycardia 785.0 [facility] [address] [id number] [address] [place] [address] October, [facility] [address] [facility] [id number] [address] [place] [address] October, [facility] [address] [facility] [id number] [address] [place] [address] 14 Sep, 2014 [facility] [address] [facility] [id number] [address] [place] [address] Sep, [facility] [address] [id number] [address] [place] [address], [place] [address] Aug, [facility] [address] [id number] [address] [place] [address], [place] [address] Aug, [facility] [address] [id number] [address] [place] [address], [place] [address] Aug, [facility] [address] [id number] [address] [place] [address], [place] [address] Aug, [facility] [address] [id number] [address] [place] [address], [place] [address] Aug, [facility] [address] [id number] [address] [place] [address], [place] [address] Aug, [facility] [address] [id number] [address] [place] [address], [place] [address] Aug, [facility] [address] [id number] [address] [place] [address], [place] [address] Aug, [facility] [address] [id number] [address] [place] [address], [place] [address] Aug, [facility] [address] [id number] [address] [place] [address], [place] [address] Aug, [facility] [address] [id number] [address] [place] [address], [place] [address] Aug, [facility] [address] [id number] [address] [place] [address], [place] [address] Aug, [facility] [address] [id number] [address] [place] [address], [place] [address] Jul, [facility] [address] [id number] [address] [place] [address], [place] [address] Jul, [facility] [address] [id number] [address] [place] [address], [place] [address] Jul, [facility] [address] [id number] [address] [place] [address], [place] [address] 23 Jul, 2014 [facility] [address] [id number] [address] [place] [address], [place] [address] 23 Jul, 2014 [facility] [address] [id number] [address] [place] [address], [place] [address] 23 Jul, 2014 [facility] [address] [id number] [address] [place] [address], [place] [address] 23 Jul, 2014 [facility] [address] [id number] [address] [place] [address], [place] [address] 23 Jul, 2014 [facility] [address] [id number] [address] [place] [address], [place] [address] 20 Jul, 2014 [facility] [address] [id number] [address] [place] [address], [place] [address] 20 Jul, 2014 [facility] [address] [id number] [address] [place] [address] 19 Jul, 2014 [facility] [address] [id number] [address] [place] [address], [place] [address] 19 Jul, 2014 [facility] [address] [id number] [address] [place] [address] 17 Jul, 2014 [facility] [address] [id number] [address] [place] [address] 17 Jul, 2014 [facility] [address] [id number] [address] [place] [address] 16 Jul, 2014 [facility] [address] [id number] [address] [place] [address], [place] [address] 16 Jul, 2014 [facility] [address] [id number] [address] [place] [address] 16 Jul, 2014 [facility] [address] [id number] [address] [place] [address] 16 Jul, 2014 [facility] [address] [id number] [address] [place] [address], [place] [address] 13 Jul, 2014 [facility] [address] [id number] [address] [place] [address], [place] [address] Jul, 2014 [facility] [address] [id number] [address] [place] [address], [place] [address] Jul, 2014 [facility] [address] [id number] [address] [place] [address], [place] [address] Jul, 2014 [facility] [address] [id number] [address] [place] [address], [place] [address] Jul, 2014 [facility] [address] [id number] [address] [place] [address], [place] [address] Jul, [facility] [address] [id number] [address] [place] [address], [place] [address] Jul, 2014 [facility] [address] [id number] [address] [place] [address], [place] [address] Jul, [facility] [address] [id number] [address] [place] [address], [place] [address] Jul, [facility] [address] [id number] [address] [place] [address], [place] [address] Jul, [facility] [address] [id number] [address] [place] [address] Jul, [facility] [address] [id number] [address] [place] [address] Jul, [facility] [address] [id number] [address] [place] [address], [place] [address] Jun, [facility] [address] [id number] [address] [place] [address] Jun, [facility] [address] [id number] [address] [place] [address] Jun, [facility] [address] [id number] [address] [place] [address] Jun, [facility] [address] [id number] [address] [place] [address], [place] [address] Jun, [facility] [address] [id number] [address] [place] [address], [place] [address] Jun, [facility] [address] [id number] [address] [place] [address], [place] [address] Jun, [facility] [address] [id number] [address] [place] [address], [place] [address] Jun, [facility] [address] [id number] [address] [place] [address], [place] [address] Jun, [facility] [address] [id number] [address] [place] [address], [place] [address] Jun, [facility] [address] [id number] [address] [place] [address], [place] [address] Jun, [facility] [address] [id number] [address] [place] [address], [place] [address] Jun, [facility] [address] [id number] [address] [place] [address], [place] [address] Jun, [facility] [address] [id number] [address] [place] [address], [place] [address] Jun, [facility] [address] [id number] [address] [place] [address], [place] [address] Jun, [facility] [address] [id number] [address] [place] [address], [place] [address] Jun, [facility] [address] [id number] [address] [place] [address], [place] [address] Jun, [facility] [address] [id number] [address] [place] [address], [place] [address] Jun, [facility] [address] [id number] [address] [place] [address], [place] [address] Jun, [facility] [address] [id number] [address] [place] [address], [place] [address] Jun, [facility] [address] [id number] [address] [place] [address], [place] [address] May, [facility] [address] [id number] [address] [place] [address], [place] [address] May, [facility] [address] [id number] [address] [place] [address], [place] [address] May, [facility] [address] [id number] [address] [place] [address], [place] [address] May, [facility] [address] [id number] [address] [place] [address], [place] [address] May, [facility] [address] [id number] [address] [place] [address], [place] [address] May, [facility] [address] [id number] [address] [place] [address], [place] [address] May, [facility] [address] [id number] [address] [place] [address], [place] [address] May, [facility] [address] [id number] [address] [place] [address], [place] [address] May, [facility] [address] [id number] [address] [place] [address], [place] [address] May, [facility] [address] [id number] [address] [place] [address], [place] [address] May, [facility] [address] [id number] [address] [place] [address], [place] [address] 18 May, 2014 [facility] [address] [id number] [address] [place] [address], [place] [address] 18 May, 2014 [facility] [address] [id number] [address] [place] [address], [place] [address] 17 May, 2014 [facility] [address] [id number] [address] [place] [address], [place] [address] 16 May, 2014 [facility] [address] [id number] [facility] [place] [address] 16 May, 2014 [facility] [address] [id number] [facility] [place] [address] 15 May, 2014 [facility] [address] [id number] [address] [place] [address], [place] [address] 15 May, 2014 [facility] [address] [id number] [address] [place] [address], [place] [address] May, [facility] [address] [id number] [address] [place] [address], [place] [address] May, [facility] [address] [id number] [address] [place] [address], [place] [address] May, [facility] [address] [id number] [address] [place] [address], [place] [address] May, [facility] [address] [id number] [address] [place] [address], [place] [address] May, [facility] [address] [id number] [address] [place] [address], [place] [address] May, [facility] [address] [id number] [address] [place] [address], [place] [address] May, [facility] [address] [id number] [address] [place] [address], [place] [address] May, [facility] [address] [id number] [address] [place] [address], [place] [address] May, [facility] [address] [id number] [address] [place] [address], [place] [address] May, [facility] [address] [id number] [address] [place] [address], [place] [address] May, [facility] [address] [id number] [address] [place] [address], [place] [address] May, [facility] [address] [id number] [address] [place] [address], [place] [address] 05 May, 2014 [facility] [address] [id number] [address] [place] [address], [place] [address] May, [facility] [address] [id number] [address] [place] [address], [place] [address] May, [facility] [address] [id number] [address] [place] [address], [place] [address] May, [facility] [address] [id number] [address] [place] [address], [place] [address] Apr, [facility] [address] [id number] [address] [place] [address], [place] [address] Apr, [facility] [address] [id number] [address] [place] [address], [place] [address] Apr, [facility] [address] [id number] [address] [place] [address], [place] [address] Apr, [facility] [address] [id number] [address] [place] [address], [place] [address] Apr, [facility] [address] [id number] [address] [place] [address], [place] [address] Apr, [facility] [address] [id number] [address] [place] [address], [place] [address] Apr, [facility] [address] [id number] [address] [place] [address], [place] [address] Apr, [facility] [address] [id number] [address] [place] [address], [place] [address] Apr, [facility] [address] [id number] [address] [place] [address], [place] [address] Apr, [facility] [address] [id number] [address] [place] [address], [place] [address] Mar, [facility] [address] [id number] [address] [place] [address], [place] [address] Mar, [facility] [address] [id number] [address] [place] [address], [place] [address] 31 Mar, 2013 [facility] [address] [id number] [address] [place] [address], [place] [address] Mar, 2013 [facility] [address] [id number] [address] [place] [address], [place] [address] 30 Mar, 2014 [facility] [address] [id number] [address] [place] [address], [place] [address] 30 Mar, 2014 [facility] [address] [id number] [address] [place] [address], [place] [address] Mar, [facility] [address] [id number] [address] [place] [address], [place] [address] Mar, [facility] [address] [id number] [address] [place] [address], [place] [address] Mar, [facility] [address] [id number] [address] [place] [address], [place] [address] Mar, [facility] [address] [id number] [address] [place] [address], [place] [address] Mar, [facility] [address] [id number] [address] [place] [address], [place] [address] Mar, [facility] [address] [id number] [address] [place] [address], [place] [address] Mar, [facility] [address] [id number] [address] [place] [address], [place] [address] Mar, [facility] [address] [id number] [address] [place] [address], [place] [address] Mar, [facility] [address] [id number] [address] [place] [address], [place] [address] Mar, [facility] [address] [id number] [address] [place] [address], [place] [address] Mar, [facility] [address] [id number] [address] [place] [id number] Mar, [facility] [address] [id number] [address] [place] [address], [place] [address] Mar, [facility] [address] [id number] [address] [place] [address], [place] [address] Mar, [facility] [address] [id number] [address] [place] [address], [place] [address] 05 Sep, 2013 [facility] [address] [id number] [address] [place] [address], [place] [address] 05 Sep, 2013 [facility] [address] [id number] [address] [place] [address], [place] [address] 04 Feb, 2013 [facility] [address] [id number] [address] [place] [address], [place] [address] 04 Feb, 2013 [facility] [address] [id number] [address] [place] [address], [place] [address] Feb, 2013 [facility] [address] [id number] [address] [place] [address], [place] [address] Feb, 2013 [facility] [address] [id number] [address] [place] [address], [place] [address] Feb, 2013 [facility] [address] [id number] [address] [place] [address], [place] [address] Feb, 2013 [facility] [address] [id number] [address] [place] [address], [place] [address] Feb, 2013 [facility] [address] [id number] [address] [place] [address], [place] [address] Feb, 2013 [facility] [address] [id number] [address] [place] [address], [place] [address] Jan, [facility] [address] [id number] [address] [place] [address], [place] [address] Jan, [facility] [address] [id number] [address] [place] [address], [place] [address] Jan, [facility] [address] [id number] [facility] [place] [address] Jan, [facility] [address] [id number] [facility] [place] [address] Jan, [facility] [address] [id number] [facility] [place] [address] Jan, [facility] [address] [id number] [address] [place] [address], [place] [address] Jan, [facility] [address] [id number] [address] [place] [address], [place] [address] Jan, [facility] [address] [id number] [address] [place] [address], [place] [address] Jan, [facility] [address] [id number] [address] [place] [address], [place] [address] Jan, [facility] [address] [id number] [address] [place] [address], [place] [address] Jan, [facility] [address] [id number] [address] [place] [address], [place] [address] Jan, [facility] [address] [id number] [address] [place] [address], [place] [address] Dec, [facility] [address] [id number] [address] [place] [address], [place] [address] Dec, [facility] [address] [id number] [address] [place] [address], [place] [address] Dec, [facility] [address] [id number] [address] [place] [address], [place] [address] Dec, [facility] [address] [id number] [address] [place] [address], [place] [address] Dec, [facility] [address] [id number] [address] [place] [address], [place] [address] Dec, [facility] [address] [id number] [address] [place] [address], [place] [address] Dec, [facility] [address] [id number] [address] [place] [address], [place] [address] Dec, 2013 [facility] [address] [id number] [address] [place] [address], [place] [address] Dec, [facility] [address] [id number] [address] [place] [address], [place] [address] Dec, [facility] [address] [id number] [address] [place] [address], [place] [address] Dec, [facility] [address] [id number] [address] [place] [address], [place] [address] Dec, [facility] [address] [id number] [address] [place] [address], [place] [address] Nov, [facility] [address] [id number] [address] [place] [address], [place] [address] Nov, [facility] [address] [id number] [address] [place] [address], [place] [address] Nov, [facility] [address] [id number] [address] [place] [address], [place] [address] Nov, [facility] [address] [id number] [address] [place] [address], [place] [address] Nov, [facility] [address] [id number] [address] [place] [address], [place] [address] Nov, [facility] [address] [id number] [address] [place] [address], [place] [address] Nov, [facility] [address] [id number] [address] [place] [address], [place] [address] Nov, [facility] [address] [id number] [address] [place] [address], [place] [address] Nov, [facility] [address] [id number] [address] [place] [address], [place] [address] Nov, [facility] [address] [id number] [address] [place] [address], [place] [address] Nov, [facility] [address] [id number] [address] [place] [address], [place] [address] Nov, [facility] [address] [id number] [address] [place] [address], [place] [address] Nov, [facility] [address] [id number] [address] [place] [address], [place] [address] Nov, [facility] [address] [id number] [address] [place] [address], [place] [address] October, [facility] [address] [id number] [address] [place] [address], [place] [address] October, [facility] [address] [id number] [address] [place] [address], [place] [address] October, [facility] [address] [id number] [address] [place] [address], [place] [address] October, [facility] [address] [id number] [address] [place] [address], [place] [address] October, [facility] [address] [id number] [address] [place] [address], [place] [address] October, [facility] [address] [id number] [address] [place] [address], [place] [address] October, [facility] [address] [id number] [address] [place] [address], [place] [address] October, [facility] [address] [id number] [address] [place] [address], [place] [address] October, [facility] [address] [id number] [address] [place] [address], [place] [address] October, [facility] [address] [id number] [address] [place] [address], [place] [address] October, [facility] [address] [id number] [address] [place] [address], [place] [address] October, [facility] [address] [id number] [facility] [place] [address] Sep, [facility] [address] [id number] [facility] [place] [address] Sep, [facility] [address] [id number] [facility] [place] [address] Sep, [facility] [address] [id number] [address] [place] [address], [place] [address] Sep, [facility] [address] [id number] [address] [place] [address], [place] [address] Sep, [facility] [address] [id number] [address] [place] [address], [place] [address] Sep, [facility] [address] [id number] [address] [place] [address], [place] [address] Aug, [facility] [address] [id number] [address] [place] [address], [place] [address] Aug, [facility] [address] [id number] [address] [place] [address], [place] [address] Aug, [facility] [address] [id number] [address] [place] [address], [place] [address] Aug, [facility] [address] [id number] [address] [place] [address], [place] [address] Aug, [facility] [address] [id number] [address] [place] [address], [place] [address] Aug, [facility] [address] [id number] [address] [place] [address], [place] [address] Jul, [facility] [address] [id number] [address] [place] [address], [place] [address] Jul, [facility] [address] [id number] [address] [place] [address], [place] [address] Jul, [facility] [address] [id number] [address] [place] [address], [place] [address] Jul, [facility] [address] [id number] [address] [place] [address], [place] [address] Jul, [facility] [address] [id number] [address] [place] [address], [place] [address] Jul, [facility] [address] [id number] [address] [place] [address], [place] [address] Jul, [facility] [address] [id number] [address] [place] [address], [place] [address] Jul, [facility] [address] [id number] [address] [place] [address], [place] [address] Jul, [facility] [address] [id number] [address] [place] [address], [place] [address] Jul, [facility] [address] [id number] [address] [place] [address], [place] [address] Jun, [facility] [address] [id number] [address] [place] [address], [place] [address] Jun, [facility] [address] [id number] [address] [place] [address], [place] [address] Jun, [facility] [address] [id number] [address] [place] [address], [place] [address] Jun, [facility] [address] [id number] [address] [place] [address], [place] [address] Jun, [facility] [address] [id number] [address] [place] [address], [place] [address] Jun, [facility] [address] [id number] [address] [place] [address], [place] [address] Jun, [facility] [address] [id number] [address] [place] [address], [place] [address] Jun, [facility] [address] [id number] [address] [place] [address], [place] [address] May, [facility] [address] [id number] [address] [place] [address], [place] [address] May, [facility] [address] [id number] [address] [place] [address], [place] [address] May, [facility] [address] [id number] [address] [place] [address], [place] [address] May, [facility] [address] [id number] [address] [place] [address], [place] [address] May, [facility] [address] [id number] [address] [place] [address], [place] [address] May, [facility] [address] [id number] [address] [place] [address], [place] [address] May, [facility] [address] [id number] [address] [place] [address], [place] [address] May, [facility] [address] [id number] [address] [place] [address], [place] [address] Apr, [facility] [address] [id number] [address] [place] [address], [place] [address] Apr, [facility] [address] [id number] [address] [place] [address], [place] [address] Apr, [facility] [address] [id number] [address] [place] [address], [place] [address] Apr, [facility] [address] [id number] [address] [place] [address], [place] [address] Apr, [facility] [address] [id number] [address] [place] [address], [place] [address] Apr, [facility] [address] [id number] [address] [place] [address], [place] [address] Mar, [facility] [address] [id number] [address] [place] [address], [place] [address] Mar, [facility] [address] [id number] [address] [place] [address], [place] [address] Mar, [facility] [address] [id number] [address] [place] [address], [place] [address] Mar, [facility] [address] [id number] [address] [place] [address], [place] [address] Mar, [facility] [address] [id number] [address] [place] [address], [place] [address] Mar, [facility] [address] [id number] [address] [place] [address], [place] [address] Mar, [facility] [address] [id number] [address] [place] [address], [place] [address] 30 Feb, 2013 [facility] [address] [id number] [address] [place] [address], [place] [address] 30 Feb, 2013 [facility] [address] [id number] [address] [place] [address], [place] [address] Feb, [facility] [address] [id number] [address] [place] [address], [place] [address] Feb, [facility] [address] [id number] [address] [place] [address], [place] [address] Feb, [facility] [address] [id number] [address] [place] [address], [place] [address] Feb, [facility] [address] [id number] [address] [place] [address], [place] [address] Jan, [facility] [address] [id number] [address] [place] [address], [place] [address] Jan, [facility] [address] [id number] [address] [place] [address], [place] [address] Jan, [facility] [address] [id number] [address] [place] [address], [place] [address] Jan, [facility] [address] [id number] [address] [place] [address], [place] [address] Jan, [facility] [address] [id number] [address] [place] [address], [place] [address] Jan, [facility] [address] [id number] [address] [place] [address], [place] [address] Jan, [facility] [address] [id number] [address] [place] [address], [place] [address] Jan, [facility] [address] [id number] [address] [place] [address], [place] [address] Jan, [facility] [address] [id number] [address] [place] [address], [place] [address] Dec, [facility] [address] [id number] [address] [place] [address], [place] [address] Dec, [facility] [address] [id number] [address] [place] [address], [place] [address] Dec, [facility] [address] [id number] [address] [place] [address], [place] [address] Dec, [facility] [address] [id number] [address] [place] [address], [place] [address] Dec, [facility] [address] [id number] [address] [place] [address], [place] [address] Dec, [facility] [address] [id number] [address] [place] [address], [place] [address] Dec, [facility] [address] [id number] [address] [place] [address], [place] [address] Dec, [facility] [address] [id number] [address] [place] [address], [place] [address] Dec, [facility] [address] [id number] [address] [place] [address], [place] [address] Dec, [facility] [address] [id number] [address] [place] [address], [place] [address] Dec, [facility] [address] [id number] [address] [place] [address], [place] [address] Dec, [facility] [address] [id number] [address] [place] [address], [place] [address] Dec, [facility] [address] [id number] [address] [place] [address], [place] [address] Nov, [facility] [address] [id number] [address] [place] [address], [place] [address] Nov, [facility] [address] [id number] [address] [place] [address], [place] [address] Nov, [facility] [address] [id number] [address] [place] [address], [place] [address] Nov, [facility] [address] [id number] [address] [place] [address], [place] [address] October, [facility] [address] [id number] [address] [place] [address], [place] [address] October, [facility] [address] [id number] [address] [place] [address], [place] [address] October, [facility] [address] [id number] [address] [place] [address], [place] [address] October, [facility] [address] [id number] [address] [place] [address], [place] [address] October, [facility] [address] [id number] [address] [place] [address], [place] [address] October, [facility] [address] [id number] [address] [place] [address], [place] [address] Sep, [facility] [address] [id number] [address] [place] [address], [place] [address] Sep, [facility] [address] [id number] [address] [place] [address], [place] [address] Sep, [facility] [address] [id number] [address] [place] [address], [place] [address] Sep, [facility] [address] [id number] [address] [place] [address], [place] [address] 19 Sep, 2012 [facility] [address] [id number] [address] [place] [address], [place] [address] 16 Sep, 2012 [facility] [address] [id number] [address] [place] [address], [place] [address] Sep, [facility] [address] [id number] [address] [place] [address], [place] [address] Sep, [facility] [address] [id number] [address] [place] [address], [place] [address] Sep, [facility] [address] [id number] [address] [place] [address], [place] [address] Sep, [facility] [address] [id number] [address] [place] [address], [place] [address] Sep, [facility] [address] [id number] [address] [place] [address], [place] [address] Aug, [facility] [address] [id number] [address] [place] [address], [place] [address] Aug, [facility] [address] [id number] [address] [place] [address], [place] [address] 25 Aug, 2012 [facility] [address] [id number] [address] [place] [address], [place] [address] Aug, [facility] [address] [id number] [address] [place] [address], [place] [address] 19 Aug, 2012 [facility] [address] [id number] [address] [place] [address], [place] [address] 18 Aug, 2012 [facility] [address] [id number] [address] [place] [address], [place] [address] 17 Aug, 2012 [facility] [address] [id number] [address] [place] [address], [place] [address] 15 Aug, 2012 [facility] [address] [id number] [address] [place] [address], [place] [address] 15 Aug, 2012 [facility] [address] [id number] [address] [place] [address], [place] [address] Aug, [facility] [address] [id number] [address] [place] [address], [place] [address] Aug, [facility] [address] [id number] [address] [place] [address], [place] [address] Aug, [facility] [address] [id number] [address] [place] [address], [place] [address] Jul, [facility] [address] [id number] [address] [place] [address], [place] [address] Jul, [facility] [address] [id number] [address] [place] [address], [place] [address] Jul, [facility] [address] [id number] [address] [place] [address], [place] [address] Jul, [facility] [address] [id number] [address] [place] [address], [place] [address] Jul, [facility] [address] [id number] [address] [place] [address], [place] [address] Jul, [facility] [address] [id number] [address] [place] [address], [place] [address] Jul, [facility] [address] [id number] [address] [place] [address], [place] [address] Jul, [facility] [address] [id number] [address] [place] [address], [place] [address] Jul, [facility] [address] [id number] [address] [place] [address], [place] [address] Jul, [facility] [address] [id number] [address] [place] [address], [place] [address] May, [facility] [id number] [id number] [place] [id number] May, [facility] [address] [id number] [address] [address] May, [facility] [address] [id number] [address] [place] [id number] May, [facility] [address] [id number] [address] [place] [address] May, [facility] [address] [id number] [address] [place] [address] Apr, [facility] [address] [id number] [place] [id number] Apr, [facility] [address] [id number] [address] [place] [address] Apr, [facility] [address] [id number] [address] [place] [id number] Mar, [facility] [address] [id number] [place] [id number] Mar, [facility] [address] [id number] [address] [place] [id number] Mar, [facility] [address] [id number] [place] [id number] Feb, [facility] [address] [id number] [address] [place] [id number] Feb, [facility] [address] [id number] [address] [place] [address] Feb, [facility] [address] [id number] [place] [id number] Feb, [facility] [address] [id number] [place] [id number] Feb, [facility] [place] [address] [id number] [place] [id number] Jan, [facility] [address] [id number] [address] [place] [id number] Jan, [facility] [address] [id number] [place] [id number] Jan, [facility] [address] [id number] [place] [id number] Jan, [facility] [address] [id number] [place] [id number] Jan, [facility] [address] [facility] [id number] [address] [address] Jan, [facility] [address] [facility] [id number] [address] [place] [address] Jan, [facility] [address] [facility] [id number] [address] [place] [address] Aug, [facility] [address] [id number] [place] [id number] Aug, [facility] [address] [facility] [id number] [address] [place] [id number] Jul, [facility] [address] [facility] [id number] [address] [place] [id number] Jul, [facility] [address] [facility] [id number] [address] [place] [id number] Jul, [facility] [address] [id number] [place] [id number] Jul, 2011 [facility] [address] [facility] [id number] [address] [place] [id number] Jul, [facility] [address] [id number] [place] [id number] Jul, [facility] [address] [facility] [id number] [address] [place] [id number] Jul, [facility] [address] [id number] [place] [id number] Jul, [facility] [address] [id number] [place] [id number] Jul, [facility] [address] [id number] [place] [id number] Jul, [facility] [address] [facility] [id number] [address] [place] [id number] May, [facility] [address] [id number] [address] [place] [id number] May, [facility] [address] [id number] [address] [place] [id number] May, [facility] [address] [id number] [address] [place] [id number] Apr, [facility] [address] [id number] [address] [place] [id number] Jan, [facility] [address] [id number] [address] [place] [id number] Jan, [facility] [address] [id number] [address] [place] [id number] Dec, [facility] [address] [id number] [address] [place] [id number] Dec, [facility] [address] [id number] [address] [place] [id number] May, [facility] [address] [id number] [address] [place] [id number] Mar, [facility] [address] [id number] [address] [place] [id number] Mar, [facility] [address] [id number] [address] [place] [id number] 14 Jan, 2009 IMMUNIZATIONS No Known Immunizations [...]
--- OUTSIDE RECORDS SUMMARY | 2020-01-28 13:19 | XMS REPORT ---
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 [id number] [address] [place] [address], [place] [id number] Mar, [facility] [address] [id number] [address] [place] [address], [place] [id number] Mar, [facility] [address] [id number] [address] [place] [address], [place] [id number] Mar, [facility] [address] [id number] [address] [place] [address], [place] [id number] Mar, [facility] [address] [id number] [address] [place] [address], [place] [id number] Mar, [facility] [address] [id number] [address] [place] [address], [place] [id number] Mar, [facility] [address] [id number] [address] [place] [address], [place] [id number] 30 Feb, 2013 [facility] [address] [id number] [address] [place] [address], [place] [id number] 30 Feb, 2013 [facility] [address] [id number] [address] [place] [address], [place] [id number] Feb, [facility] [address] [id number] [address] [place] [address], [place] [id number] Feb, [facility] [address] [id number] [address] [place] [address], [place] [id number] Feb, [facility] [address] [id number] [address] [place] [address], [place] [id number] Feb, [facility] [address] [id number] [address] [place] [address], [place] [id number] Jan, [facility] [address] [id number] [address] [place] [address], [place] [id number] Jan, [facility] [address] [id number] [address] [place] [address], [place] [id number] Jan, [facility] [address] [id number] [address] [place] [address], [place] [id number] Jan, [facility] [address] [id number] [address] [place] [address], [place] [id number] Jan, [facility] [address] [id number] [address] [place] [address], [place] [id number] Jan, [facility] [address] [id number] [address] [place] [address], [place] [id number] Jan, [facility] [address] [id number] [address] [place] [address], [place] [id number] Jan, [facility] [address] [id number] [address] [place] [address], [place] [id number] Jan, [facility] [address] [id number] [address] [place] [address], [place] [id number] Dec, [facility] [address] [id number] [address] [place] [address], [place] [id number] Dec, [facility] [address] [id number] [address] [place] [address], [place] [id number] Dec, [facility] [address] [id number] [address] [place] [address], [place] [id number] Dec, [facility] [address] [id number] [address] [place] [address], [place] [id number] Dec, [facility] [address] [id number] [address] [place] [address], [place] [id number] Dec, [facility] [address] [id number] [address] [place] [address], [place] [id number] Dec, [facility] [address] [id number] [address] [place] [address], [place] [id number] Dec, [facility] [address] [id number] [address] [place] [address], [place] [id number] Dec, [facility] [address] [id number] [address] [place] [address], [place] [id number] Dec, [facility] [address] [id number] [address] [place] [address], [place] [id number] Dec, [facility] [address] [id number] [address] [place] [address], [place] [id number] Dec, [facility] [address] [id number] [address] [place] [address], [place] [id number] Dec, [facility] [address] [id number] [address] [place] [address], [place] [id number] Nov, [facility] [address] [id number] [address] [place] [address], [place] [id number] Nov, [facility] [address] [id number] [address] [place] [address], [place] [id number] Nov, [facility] [address] [id number] [address] [place] [address], [place] [id number] Nov, [facility] [address] [id number] [address] [place] [address], [place] [id number] October, [facility] [address] [id number] [address] [place] [address], [place] [id number] October, [facility] [address] [id number] [address] [place] [address], [place] [id number] October, [facility] [address] [id number] [address] [place] [address], [place] [id number] October, [facility] [address] [id number] [address] [place] [address], [place] [id number] October, [facility] [address] [id number] [address] [place] [address], [place] [id number] October, [facility] [address] [id number] [address] [place] [address], [place] [id number] Sep, [facility] [address] [id number] [address] [place] [address], [place] [id number] Sep, [facility] [address] [id number] [address] [place] [address], [place] [id number] Sep, [facility] [address] [id number] [address] [place] [address], [place] [id number] Sep, [facility] [address] [id number] [address] [place] [address], [place] [id number] 19 Sep, 2012 [facility] [address] [id number] [address] [place] [address], [place] [id number] 16 Sep, 2012 [facility] [address] [id number] [address] [place] [address], [place] [id number] Sep, [facility] [address] [id number] [address] [place] [address], [place] [id number] Sep, [facility] [address] [id number] [address] [place] [address], [place] [id number] Sep, [facility] [address] [id number] [address] [place] [address], [place] [id number] Sep, [facility] [address] [id number] [address] [place] [address], [place] [id number] Sep, [facility] [address] [id number] [address] [place] [address], [place] [id number] Aug, [facility] [address] [id number] [address] [place] [address], [place] [id number] Aug, [facility] [address] [id number] [address] [place] [address], [place] [id number] 25 Aug, 2012 [facility] [address] [id number] [address] [place] [address], [place] [id number] Aug, [facility] [address] [id number] [address] [place] [address], [place] [id number] 19 Aug, 2012 [facility] [address] [id number] [address] [place] [address], [place] [id number] 18 Aug, 2012 [facility] [address] [id number] [address] [place] [address], [place] [id number] 17 Aug, 2012 [facility] [address] [id number] [address] [place] [address], [place] [id number] 15 Aug, 2012 [facility] [address] [id number] [address] [place] [address], [place] [id number] 15 Aug, 2012 [facility] [address] [id number] [address] [place] [address], [place] [id number] Aug, [facility] [address] [id number] [address] [place] [address], [place] [id number] Aug, [facility] [address] [id number] [address] [place] [address], [place] [id number] Aug, [facility] [address] [id number] [address] [place] [address], [place] [id number] Jul, [facility] [address] [id number] [address] [place] [address], [place] [id number] Jul, [facility] [address] [id number] [address] [place] [address], [place] [id number] Jul, [facility] [address] [id number] [address] [place] [address], [place] [id number] Jul, [facility] [address] [id number] [address] [place] [address], [place] [id number] Jul, [facility] [address] [id number] [address] [place] [address], [place] [id number] Jul, [facility] [address] [id number] [address] [place] [address], [place] [id number] Jul, [facility] [address] [id number] [address] [place] [address], [place] [id number] Jul, [facility] [address] [id number] [address] [place] [address], [place] [id number] Jul, [facility] [address] [id number] [address] [place] [address], [place] [id number] Jul, [facility] [address] [id number] [address] [place] [address], [place] [id number] May, [facility] [address] [id number] [id number] May, [facility] [address] [id number] [address] [address] May, [facility] [address] [id number] [address] [place] [id number] May, [facility] [address] [id number] [address] [place] [id number] May, [facility] [address] [id number] [address] [place] [id number] Apr, [facility] [address] [id number] [place] [id number] Apr, [facility] [address] [id number] [address] [place] [id number] Apr, [facility] [address] [id number] [address] [place] [id number] Mar, [facility] [address] [id number] [place] [id number] Mar, [facility] [address] [id number] [address] [place] [id number] Mar, [facility] [address] [id number] [place] [id number] Feb, [facility] [address] [id number] [address] [place] [id number] Feb, [facility] [address] [id number] [address] [place] [id number] Feb, [facility] [address] [id number] [place] [id number] Feb, [facility] [address] [id number] [place] [id number] Feb, [facility] [address] [id number] [place] [id number] Jan, [facility] [address] [id number] [address] [place] [id number] Jan, [facility] [address] [id number] [place] [id number] Jan, [facility] [address] [id number] [place] [id number] Jan, [facility] [address] [id number] [place] [id number] Jan, [facility] [address] [facility] [id number] [address] [address] Jan, [facility] [address] [facility] [id number] [address] [place] [phone] Jan, [facility] [address] [facility] [id number] [address] [place] [id number] Aug, [facility] [address] [id number] [place] [id number] Aug, [facility] [address] [facility] [id number] [address] [place] [id number] Jul, [facility] [address] [facility] [id number] [address] [place] [id number] Jul, [facility] [address] [facility] [id number] [address] [place] [id number] Jul, [facility] [address] [id number] [place] [id number] Jul, 2011 [facility] [address] [facility] [id number] [address] [place] [id number] Jul, [facility] [address] [id number] [place] [id number] Jul, [facility] [address] [facility] [id number] [address] [place] [id number] Jul, [facility] [address] [id number] [place] [id number] Jul, [facility] [address] [id number] [place] [id number] Jul, [facility] [address] [id number] [place] [id number] Jul, [facility] [address] [facility] [id number] [address] [place] [id number] May, [facility] [address] [id number] [address] [place] [id number] May, [facility] [address] [id number] [address] [place] [id number] May, [facility] [address] [id number] [address] [place] [id number] Apr, [facility] [address] [id number] [address] [place] [id number] Jan, [facility] [address] [id number] [address] [place] [id number] Jan, [facility] [address] [id number] [address] [place] [id number] Dec, [facility] [address] [id number] [address] [place] [id number] Dec, [facility] [address] [id number] [address] [place] [id number] May, [facility] [address] [id number] [address] [place] [id number] Mar, [facility] [address] [id number] [address] [place] [id number] Mar, [facility] [address] [id number] [address] [place] [id number] 14 Jan, 2009 IMMUNIZATIONS No Known Immunizations [...]
--- OUTSIDE RECORDS SUMMARY | 2020-01-28 13:22 | XMS REPORT | CCD ---
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 Name Role Phone Kristine Brambila D.O., PP Unavailable CCM Unavailable Summary Purpose Interface Exchange Insurance Providers Payer name Policy type / Coverage type Covered republican ID Effective Begin Date Effective End Date Blue Cross Blue Shield Blue Cross/Bl ue Shield [id number] 2018 Un known Family History Family History data not found Social History Social History Element Codes Description Effective Dates Tobacco history SNOMED CT: 32018544 Current every day smoker 06/08/2015 Allergies, Adverse Reactions, Alerts Substance Reaction Codes Entered Date Inactivated Date Status _ Unknown 05/24/2015 No Inactive Date Active * NO KNOWN ENVIRONME NTAL ALLERGIES Unknown 05/24/2015 No Inactive Date Active _ Unknown 09/28/2018 No Inactive Date Active _ Unknown 03/03/2017 No Inactive Date Active SULFA(SULFONAMIDE AN TIBIOTICS) Unknown 05/24/2015 No Inactive Date Active Past Medical History Illness Codes Condition Status Onset Date Resolved Date Encounter for therap eutic drug level monitoring ICD-9: V58.83 ICD-10: Z51.81 Active 01/21/2016 Unknown assisted (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 ICD-9: V58.61 ICD-10: Z79.01 Active 2016 Unknown Rash and other nonsp ecific skin eruption ICD-9: 782.1 ICD-10: R21 Active 03/08/2019 Unknown Epistaxis ICD-9: 784.7 ICD-10: R04.0 Active 02/17/2019 Unknown Radiculopathy, site unspecified ICD-9: 724.4 ICD-10: M54.10 Active 02/17/2019 Unknown Irritable bowel synd jose guadalupe with constipation ICD-9: 564.1 ICD-10: K58.1 Active 02/08/2019 Unknown Low back pain ICD-9: 724.2 ICD-10: M54.5 Active 02/08/2019 Unknown Unspecified urinary incontinence ICD-9: 788.30 ICD-10: R32 Active 02/08/2019 Unknown Abnormal levels of o ther serum enzymes ICD-9: 790.5 ICD-10: R74.8 Active 2016 Unknown Acute pharyngitis du e to other specified organisms ICD-9: 462 ICD-10: J02.8 Active 01/13/2017 Unknown COUGH ICD-9: 786.2 ICD-10: R05 Active 07/21/2017 Unknown Other fatigue ICD-9: 780.79 ICD-10: R53.83 Active 10/01/2015 Unknown Otalgia, left ear ICD-9: 388.70 ICD-10: H92.02 Active 01/01/2018 Unknown Dehydration ICD-9: 276.51 ICD-10: E86.0 Active 12/16/2018 Unknown Anemia, unspecified ICD- 9: 285.9 ICD-10: D64.9 Active 12/03/2018 Unknown Benign lipomatous ne oplasm of skin and subcutaneous tissue of trunk ICD-9: 214.1 ICD-10: D17.1 Active 12/03/2018 Unknown Acute pharyngitis, u nspecified ICD-9: 462 ICD-10: J02.9 Active 02/05/2017 Unknown Enlarged lymph nodes , unspecified ICD-9: 785.6 ICD-10: R59.9 Active 12/02/2018 Unknown Acute suppurative ot itis media without spontaneous rupture of ear drum, left ear ICD-9: 382.00 ICD-10: H66.002 Active 11/30/2018 Unknown Dysuria ICD-9: 788.1 ICD-10: R30.0 Active 06/29/2015 Unknown Streptococcal pharyn gitis ICD-9: 034.0 ICD-10: J02.0 Active 11/11/2018 Unknown Streptococcal infect ion, unspecified site ICD-9: 041.00 ICD-10: A49.1 Active 07/02/2018 Unknown Personal history of diseases of the blood and blood-forming organs and certain disorders involving the immune mechanism ICD-9: V12.3 ICD-10: Z86.2 Active 10/01/2017 Unknown Other allergic rhinitis ICD-9: 477.8 ICD-10: J30.89 Active 01/26/2018 Unknown Acute recurrent maxi llary sinusitis ICD-9: 461.0 ICD-10: J01.01 Active 10/07/2018 Unknown Acute mastoiditis wi thout complications, left ear ICD-9: 383.00 ICD-10: H70.002 Active 05/11/2018 Unknown Acute upper respirat ory infection, unspecified ICD-9: 465.9 ICD-10: J06.9 Active 10/01/2015 Unknown Dizziness and giddiness ICD-9: 780.4 ICD-10: R42 Active 09/25/2018 Unknown Personal history of pulmonary embolism ICD-9: V12.55 ICD-10: Z86.711 Active 2015 Unknown Furuncle right hand ICD- 9: 680.4 ICD-10: L02.521 Active 09/08/2018 Unknown Localized swelling, mass and lump, neck ICD-9: 784.2 ICD-10: R22.1 Active 10/09/2015 Unknown Acute sinusitis, uns pecified ICD-9: 461.9 ICD-10: J01.90 Active 06/26/2015 Unknown Localized enlarged l ymph nodes ICD-9: 785.6 ICD-10: R59.0 Active 2015 Unknown Periapical abscess w ith sinus ICD-9: 522.7 ICD-10: K04.6 Active 07/02/2018 Unknown Pain in unspecified joint ICD-9: 719.49 ICD-10: M25.50 Active 11/27/2016 Unknown Paroxysmal tachycard ia, unspecified ICD-9: 427.2 ICD-10: I47.9 Active 06/17/2018 Unknown FLU VACCINE ICD-9: V04.81 ICD-10: Z23 Active 03/24/2018 Unknown Migraine, unspecifie d, not intractable, without status migrainosus ICD-9: 346.90 ICD-10: G43.909 Active 03/11/2016 Unknown Abdominal distension (gaseous) ICD-9: 787.3 ICD-10: R14.0 Active 02/16/2018 Unknown Diarrhea, unspecified ICD-9: 787.91 ICD-10: R19.7 Active 02/16/2018 Unknown Epigastric pain ICD-9: 789.06 ICD-10: R10.13 Active 02/16/2018 Unknown Urinary tract infect ion, site not specified ICD-9: 599.0 ICD-10: N39.0 Active 04/22/2016 Unknown Acute suppurative ot itis media without spontaneous rupture of ear drum, right ear ICD-9: 382.00 ICD-10: H66.001 Active 01/26/2018 Unknown Contact with and (carmona spected) exposure to potentially hazardous body fluids ICD-9: V15.85 ICD-10: Z77.21 Active 01/26/2018 Unknown Other lesions of ora l mucosa ICD-9: 528.9 ICD-10: K13.79 Active 01/01/2018 Unknown Acute suppurative ot itis media with spontaneous rupture of ear drum, left ear ICD-9: 382.01 ICD-10: H66.012 Active 12/25/2017 Unknown Other specified abno rmal immunological findings in serum ICD-9: 795.79 ICD-10: R76.8 Active 10/14/2017 Unknown Tachycardia, unspeci fied ICD-9: 785.0 ICD-10: R00.0 Active 07/08/2016 Unknown Vitamin D deficiency , unspecified ICD-9: 268.9 ICD-10: E55.9 Active 10/01/2017 Unknown Encounter for genera l adult medical examination without abnormal findings ICD-9: V70.9 ICD-10: Z00.00 Active 11/05/2017 Unknown Encounter for gyneco logical examination (general) (routine) without abnormal findings ICD-9: V72.31 ICD-10: Z01.419 Active 11/05/2017 Unknown Pain in right shoulder ICD-9: 719.41 ICD-10: M25.511 Active 10/06/2017 Unknown Acute stress reaction ICD-9: 308.9 ICD-10: F43.0 Active 02/05/2017 Unknown Myalgia ICD-9: 729.1 ICD-10: M79.1 Active 10/01/2017 Unknown Pain in unspecified joint ICD-9: 719.40 ICD-10: M25.50 Active 09/05/2017 Unknown Paresthesia of skin ICD- 9: 782.0 ICD-10: R20.2 Active 10/01/2017 Unknown Polyneuropathy, unsp ecified ICD-9: 355.9 ICD-10: G62.9 Active 10/01/2017 Unknown Raynaud's syndrome w ithout gangrene ICD-9: 443.0 ICD-10: I73.00 Active 10/01/2017 Unknown Burn of second degre e of back of left hand, initial encounter ICD-9: 944.26 ICD-10: T23.262A Active 09/10/2017 Unknown Fever, unspecified ICD- 9: 780.60 ICD-10: R50.9 Active 07/15/2017 Unknown Dyspnea, unspecified ICD-9: 786.09 ICD-10: R06.00 Active 07/21/2017 Unknown Gastro-esophageal re flux disease without esophagitis ICD-9: 530.81 ICD-10: K21.9 Active 07/15/2017 Unknown Otitis media, unspec ified, left ear ICD-9: 380.14 ICD-10: H66.92 Active 07/01/2017 Unknown Insomnia, unspecified ICD-9: 780.52 ICD-10: G47.00 Active 05/20/2017 Unknown Pneumonia, unspecifi ed organism ICD-9: 486 ICD-10: J18.9 Active 05/27/2017 Unknown Other chronic pain ICD- 9: 338.29 ICD-10: G89.29 Active 10/01/2015 Unknown Diplopia ICD-9: 368.2 ICD-10: H53.2 Active 04/22/2017 Unknown Headache ICD-9: 784.0 ICD-10: R51 Active 04/22/2017 Unknown Calculus of kidney ICD- 9: 592.0 ICD-10: N20.0 Active 02/27/2017 Unknown Unspecified abdomina l pain ICD-9: 789.09 ICD-10: R10.9 Active 02/27/2017 Unknown Disorder of pituitar y gland, unspecified ICD-9: 253.9 ICD-10: E23.7 Active 02/12/2017 Unknown Hematuria, unspecified ICD-9: 599.70 ICD-10: R31.9 Active 02/10/2017 Unknown Pelvic and perineal pain ICD-9: [id number] ICD-10: R10.2 Active 02/10/2017 Unknown Cervicalgia ICD-9: 723.1 ICD-10: M54.2 Active 02/05/2017 Unknown Recurrent oral aphthae ICD-9: 528.2 ICD-10: K12.0 Active 01/13/2017 Unknown Abrasion, left lower leg, initial encounter ICD-9: 916.0 ICD-10: S80.812A Active 04/16/2016 Unknown Fibromyalgia ICD-9: 729.1 ICD-10: M79.7 Active 03/11/2016 Unknown Acute tonsillitis, u nspecified ICD-9: 463 ICD-10: J03.90 Active 11/09/2015 Unknown Pain in left hip ICD-9: 719.45 ICD-10: M25.552 Active 10/09/2015 Unknown Pain in right hip ICD-9: 719.45 ICD-10: M25.551 Active 10/09/2015 Unknown Candidiasis, unspeci fied ICD-9: 112.9 ICD-10: B37.9 Active 10/01/2015 Unknown Generalized enlarged lymph nodes ICD-9: 785.6 ICD-10: R59.1 Active 10/01/2015 Unknown Tachycardia, unspeci fied ICD-9: 427.89 ICD-10: R00.0 Active 07/09/2015 Unknown Scar conditions and fibrosis of skin ICD-9: 709.2 ICD-10: L90.5 Active 06/26/2015 Unknown Benign intracranial hypertension ICD-9: 348.2 ICD-10: G93.2 Active 2015 Unknown Problems Condition Codes Effectiv e Dates Condition Status Encounter for therap eutic drug level monitoring ICD-9: V58.83 ICD-10: Z51.81 01/21/2016 Active 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 ICD-9: V58.61 ICD-10: Z79.01 2016 Active Rash and other nonsp ecific skin eruption ICD-9: 782.1 ICD-10: R21 03/08/2019 Active Epistaxis ICD-9: 784.7 ICD-10: R04.0 02/17/2019 Active Radiculopathy, site unspecified ICD-9: 724.4 ICD-10: M54.10 02/17/2019 Active Irritable bowel synd jose guadalupe with constipation ICD-9: 564.1 ICD-10: K58.1 02/08/2019 Active Low back pain ICD-9: 724.2 ICD-10: M54.5 02/08/2019 Active Unspecified urinary incontinence ICD-9: 788.30 ICD-10: R32 02/08/2019 Active Abnormal levels of o ther serum enzymes ICD-9: 790.5 ICD-10: R74.8 2016 Active Acute pharyngitis du e to other specified organisms ICD-9: 462 ICD-10: J02.8 01/13/2017 Active COUGH ICD-9: 786.2 ICD-10: R05 07/21/2017 Active Other fatigue ICD-9: 780.79 ICD-10: R53.83 10/01/2015 Active Otalgia, left ear ICD-9: 388.70 ICD-10: H92.02 01/01/2018 Active Dehydration ICD-9: 276.51 ICD-10: E86.0 12/16/2018 Active Anemia, unspecified ICD- 9: 285.9 ICD-10: D64.9 12/03/2018 Active Benign lipomatous ne oplasm of skin and subcutaneous tissue of trunk ICD-9: 214.1 ICD-10: D17.1 12/03/2018 Active Acute pharyngitis, u nspecified ICD-9: 462 ICD-10: J02.9 02/05/2017 Active Enlarged lymph nodes , unspecified ICD-9: 785.6 ICD-10: R59.9 12/02/2018 Active Acute suppurative ot itis media without spontaneous rupture of ear drum, left ear ICD-9: 382.00 ICD-10: H66.002 11/30/2018 Active Dysuria ICD-9: 788.1 ICD-10: R30.0 06/29/2015 Active Streptococcal pharyn gitis ICD-9: 034.0 ICD-10: J02.0 11/11/2018 Active Streptococcal infect ion, unspecified site ICD-9: 041.00 ICD-10: A49.1 07/02/2018 Active Personal history of diseases of the blood and blood-forming organs and certain disorders involving the immune mechanism ICD-9: V12.3 ICD-10: Z86.2 10/01/2017 Active Other allergic rhinitis ICD-9: 477.8 ICD-10: J30.89 01/26/2018 Active Acute recurrent maxi llary sinusitis ICD-9: 461.0 ICD-10: J01.01 10/07/2018 Active Acute mastoiditis wi thout complications, left ear ICD-9: 383.00 ICD-10: H70.002 05/11/2018 Active Acute upper respirat ory infection, unspecified ICD-9: 465.9 ICD-10: J06.9 10/01/2015 Active Dizziness and giddiness ICD-9: 780.4 ICD-10: R42 09/25/2018 Active Personal history of pulmonary embolism ICD-9: V12.55 ICD-10: Z86.711 2015 Active Furuncle right hand ICD- 9: 680.4 ICD-10: L02.521 09/08/2018 Active Localized swelling, mass and lump, neck ICD-9: 784.2 ICD-10: R22.1 10/09/2015 Active Acute sinusitis, uns pecified ICD-9: 461.9 ICD-10: J01.90 06/26/2015 Active Localized enlarged l ymph nodes ICD-9: 785.6 ICD-10: R59.0 2015 Active Periapical abscess w ith sinus ICD-9: 522.7 ICD-10: K04.6 07/02/2018 Active Pain in unspecified joint ICD-9: 719.49 ICD-10: M25.50 11/27/2016 Active Paroxysmal tachycard ia, unspecified ICD-9: 427.2 ICD-10: I47.9 06/17/2018 Active FLU VACCINE ICD-9: V04.81 ICD-10: Z23 03/24/2018 Active Migraine, unspecifie d, not intractable, without status migrainosus ICD-9: 346.90 ICD-10: G43.909 03/11/2016 Active Abdominal distension (gaseous) ICD-9: 787.3 ICD-10: R14.0 02/16/2018 Active Diarrhea, unspecified ICD-9: 787.91 ICD-10: R19.7 02/16/2018 Active Epigastric pain ICD-9: 789.06 ICD-10: R10.13 02/16/2018 Active Urinary tract infect ion, site not specified ICD-9: 599.0 ICD-10: N39.0 04/22/2016 Active Acute suppurative ot itis media without spontaneous rupture of ear drum, right ear ICD-9: 382.00 ICD-10: H66.001 01/26/2018 Active Contact with and (carmona spected) exposure to potentially hazardous body fluids ICD-9: V15.85 ICD-10: Z77.21 01/26/2018 Active Other lesions of ora l mucosa ICD-9: 528.9 ICD-10: K13.79 01/01/2018 Active Acute suppurative ot itis media with spontaneous rupture of ear drum, left ear ICD-9: 382.01 ICD-10: H66.012 12/25/2017 Active Other specified abno rmal immunological findings in serum ICD-9: 795.79 ICD-10: R76.8 10/14/2017 Active Tachycardia, unspeci fied ICD-9: 785.0 ICD-10: R00.0 07/08/2016 Active Vitamin D deficiency , unspecified ICD-9: 268.9 ICD-10: E55.9 10/01/2017 Active Encounter for genera l adult medical examination without abnormal findings ICD-9: V70.9 ICD-10: Z00.00 11/05/2017 Active Encounter for gyneco logical examination (general) (routine) without abnormal findings ICD-9: V72.31 ICD-10: Z01.419 11/05/2017 Active Pain in right shoulder ICD-9: 719.41 ICD-10: M25.511 10/06/2017 Active Acute stress reaction ICD-9: 308.9 ICD-10: F43.0 02/05/2017 Active Myalgia ICD-9: 729.1 ICD-10: M79.1 10/01/2017 Active Pain in unspecified joint ICD-9: 719.40 ICD-10: M25.50 09/05/2017 Active Paresthesia of skin ICD- 9: 782.0 ICD-10: R20.2 10/01/2017 Active Polyneuropathy, unsp ecified ICD-9: 355.9 ICD-10: G62.9 10/01/2017 Active Raynaud's syndrome w ithout gangrene ICD-9: 443.0 ICD-10: I73.00 10/01/2017 Active Burn of second degre e of back of left hand, initial encounter ICD-9: 944.26 ICD-10: T23.262A 09/10/2017 Active Fever, unspecified ICD- 9: 780.60 ICD-10: R50.9 07/15/2017 Active Dyspnea, unspecified ICD-9: 786.09 ICD-10: R06.00 07/21/2017 Active Gastro-esophageal re flux disease without esophagitis ICD-9: 530.81 ICD-10: K21.9 07/15/2017 Active Otitis media, unspec ified, left ear ICD-9: 380.14 ICD-10: H66.92 07/01/2017 Active Insomnia, unspecified ICD-9: 780.52 ICD-10: G47.00 05/20/2017 Active Pneumonia, unspecifi ed organism ICD-9: 486 ICD-10: J18.9 05/27/2017 Active Other chronic pain ICD- 9: 338.29 ICD-10: G89.29 10/01/2015 Active Diplopia ICD-9: 368.2 ICD-10: H53.2 04/22/2017 Active Headache ICD-9: 784.0 ICD-10: R51 04/22/2017 Active Calculus of kidney ICD- 9: 592.0 ICD-10: N20.0 02/27/2017 Active Unspecified abdomina l pain ICD-9: 789.09 ICD-10: R10.9 02/27/2017 Active Disorder of pituitar y gland, unspecified ICD-9: 253.9 ICD-10: E23.7 02/12/2017 Active Hematuria, unspecified ICD-9: 599.70 ICD-10: R31.9 02/10/2017 Active Pelvic and perineal pain ICD-9: PVS3876 ICD-10: R10.2 02/10/2017 Active Cervicalgia ICD-9: 723.1 ICD-10: M54.2 02/05/2017 Active Recurrent oral aphthae ICD-9: 528.2 ICD-10: K12.0 01/13/2017 Active Abrasion, left lower leg, initial encounter ICD-9: 916.0 ICD-10: S80.812A 04/16/2016 Active Fibromyalgia ICD-9: 729.1 ICD-10: M79.7 03/11/2016 Active Acute tonsillitis, u nspecified ICD-9: 463 ICD-10: J03.90 11/09/2015 Active Pain in left hip ICD-9: 719.45 ICD-10: M25.552 10/09/2015 Active Pain in right hip ICD-9: 719.45 ICD-10: M25.551 10/09/2015 Active Candidiasis, unspeci fied ICD-9: 112.9 ICD-10: B37.9 10/01/2015 Active Generalized enlarged lymph nodes ICD-9: 785.6 ICD-10: R59.1 10/01/2015 Active Tachycardia, unspeci fied ICD-9: 427.89 ICD-10: R00.0 07/09/2015 Active Scar conditions and fibrosis of skin ICD-9: 709.2 ICD-10: L90.5 06/26/2015 Active Benign intracranial hypertension ICD-9: 348.2 ICD-10: G93.2 2015 Active Medications Medication Codes Instruc tions Start Date Stop Date Sta tus Fill Instructions mupirocin 2 % topica l cream RxNorm: 739712 1 Application TOP TID 03/08/2019 03/14/2019 Active Vistaril 25 mg capsule RxNorm: 470194 Capsule(s) 1 Capsule(s) PO TID as needed for anxiety 03/02/2019 05/30/2019 Active cyclobenzaprine 10 m g tablet RxNorm: 128832 Tablet(s) 1 TABLET(S) PO QD NEEDED 03/02/2019 08/28/2019 Ac tive hydrocodone 10 mg-ac etaminophen 325 mg tablet RxNorm: 170894 1 Tablet(s) PO Q4-6H as needed for pain 03/02/2019 No Stop Date Active Vitamin D2 50,000 un it capsule RxNorm: 3574596 1 CAPSULE(S) PO QW 02/26/2019 08/24/2019 Active warfarin 5 mg tablet RxNorm: 522471 1 Tablet(s) PO QD 02/17/2019 04/17/2019 Active acetazolamide 125 mg tablet RxNorm: 167494 1 TABLET(S) PO BID 02/15/2019 04/15/2019 Active cholestyramine (with sugar) 4 gram oral powder RxNorm: 315547 1 UNIT DOSE PO QD 02/15/2019 04/15/2019 Ac tive penicillin V potassi um 500 mg tablet RxNorm: 444662 1 Tablet(s) PO BID 02/10/2019 02/09/2019 In active penicillin V potassi um 500 mg tablet RxNorm: 894273 1 Tablet(s) PO BID 02/10/2019 02/16/2019 In active Diflucan 150 mg tablet RxNorm: 408746 TABLET(S) 1 TABLET(S) PO QW NEEDED 02/08/2019 No Stop Date Active Anusol-HC 25 mg rect al suppository RxNorm: 3336961 1 Suppository RTL QD as needed 02/08/2019 03/09/2019 In active hydrocodone 10 mg-ac etaminophen 325 mg tablet RxNorm: 846679 1 Tablet(s) PO Q4-6H as needed for pain 02/01/2019 No Stop Date Active hydrocodone 10 mg-ac etaminophen 325 mg tablet RxNorm: 081163 1 Tablet(s) PO Q4-6H as needed for pain 02/01/2019 03/01/2019 Inactive Diflucan 150 mg tablet RxNorm: 435221 Tablet(s) TABLET(S) 1 TABLET(S) PO QW NEEDED 01/28/2019 No Stop Date Active Vistaril 25 mg capsule RxNorm: 761911 1 Capsule(s) PO TID 01/27/2019 07/25/2019 Active ProAir HFA 90 mcg/ac tuation aerosol inhaler RxNorm: 555095 2 Puff(s) INH Q4H as needed 01/20/2019 No Stop Date Active Tessalon Perles 100 mg capsule RxNorm: 568096 1 Capsule(s) PO TID a s needed for cough 01/20/2019 No Stop Date Active doxycycline hyclate 100 mg capsule RxNorm: 8101439 1 Capsule(s) PO BID 01/20/2019 01/19/2019 In active doxycycline hyclate 100 mg capsule RxNorm: 4943480 1 Capsule(s) PO BID 01/20/2019 01/26/2019 In active Coumadin 5 mg tablet RxNorm: 273952 1 Tablet(s) PO QD (on Mon, , Fri, , Fri and Sun) 01/05/2019 06/09/2019 Active Generic For:COUMADIN 5MG TAB 05/25/2018 3:20:45 PM N O T I C E Last quantity doesn't match original quantity amoxicillin 500 mg c apsule RxNorm: 423862 1 Capsule(s) PO BID 01/05/2019 01/14/2019 Inactive amoxicillin 500 mg c apsule RxNorm: 575636 1 Capsule(s) PO BID 01/05/2019 01/04/2019 Inactive hydrocodone 10 mg-ac etaminophen 325 mg tablet RxNorm: 906141 1 Tablet(s) PO Q4-6H as needed for pain 01/01/2019 01/31/2019 Inactive Coumadin 5 mg tablet RxNorm: 073369 Tablet(s) TAKE 1 TABLET(S) BY MOUTH FRI, FRI, FRI, Friday12/23/2018 01/04/2019 Inactive Generic For:COUMADIN 5MG TA B 05/25/2018 3:20:45 PM N O T I C E Last quantity doesn't match original quantity Diflucan 150 mg tablet RxNorm: 576818 Tablet(s) TABLET(S) 1 TABLET(S) PO QW NEEDED 12/23/2018 01/27/2019 Inactive cyclobenzaprine 10 m g tablet RxNorm: 273923 1 TABLET(S) PO QD NEEDED 12/23/2018 03/01/2019 In active Vitamin D2 50,000 un it capsule RxNorm: 4361395 1 Capsule(s) PO QW 12/04/2018 02/25/2019 Inactive Medrol (Juan Francisco) 4 mg ta blets in a dose pack RxNorm: 260181 Tablet(s) PO as direc liane 12/04/2018 12/03/2018 In active Vitamin D2 50,000 un it capsule RxNorm: 4527661 1 Capsule(s) PO QW 12/04/2018 12/03/2018 Inactive Medrol (Juan Francisco) 4 mg ta blets in a dose pack RxNorm: 575783 Tablet(s) PO as direc liane 12/04/2018 01/19/2019 In active Zithromax Z-Juan Francisco 250 mg tablet RxNorm: 552128 Tablet(s) PO take as directed 12/02/2018 02/16/2019 In active Coumadin 5 mg tablet RxNorm: 457093 Tablet(s) TAKE 1 TABLET(S) BY MOUTH FRI, FRI, FRI, Friday11/30/2018 12/22/2018 Inactive Generic For:COUMADIN 5MG TA B 05/25/2018 3:20:45 PM N O T I C E Last quantity doesn't match original quantity Vistaril 25 mg capsule RxNorm: 912138 Capsule(s) 1 Capsule(s) PO TID as needed for anxiety 11/30/2018 02/27/2019 Inactive Diflucan 150 mg tablet RxNorm: 752392 Tablet(s) TABLET(S) 1 TABLET(S) PO QW NEEDED 11/26/2018 12/22/2018 Inactive cholestyramine (with sugar) 4 gram oral powder RxNorm: 867752 1 UNIT DOSE PO QD 11/24/2018 02/14/2019 In active acetazolamide 125 mg tablet RxNorm: 195009 1 Tablet(s) PO BID 11/24/2018 02/14/2019 Inactive cyclobenzaprine 10 m g tablet RxNorm: 018265 1 Tablet(s) PO QD as needed 11/17/2018 12/22/2018 In active hydrocodone 10 mg-ac etaminophen 325 mg tablet RxNorm: 853092 1 Tablet(s) PO Q4-6H as needed for pain 11/05/2018 01/31/2019 Inactive acetazolamide 125 mg tablet RxNorm: 196233 1 TABLET(S) PO BID 10/26/2018 11/23/2018 Inactive cholestyramine (with sugar) 4 gram oral powder RxNorm: 375977 1 UNIT DOSE PO QD 10/26/2018 11/23/2018 In active Coumadin 5 mg tablet RxNorm: 247763 TAKE 1 TABLET(S) BY MOUTH FRI, FRI, FRI, Friday10/26/2018 11/29/2018 Inactive Generic For:COUMADIN 5MG TAB 05/25/2018 3:20:45 PM N O T I C E Last quantity doesn't match original quantity Diflucan 150 mg tablet RxNorm: 509682 TABLET(S) 1 TABLET(S) PO QW NEEDED 10/26/2018 11/25/2018 In active hydrocodone 10 mg-ac etaminophen 325 mg tablet RxNorm: 911660 1 Tablet(s) PO Q4-6H as needed for pain 10/08/2018 11/04/2018 Inactive acetazolamide 125 mg tablet RxNorm: 535725 1 Tablet(s) PO BID 09/24/2018 10/23/2018 Inactive Coumadin 5 mg tablet RxNorm: 022127 TAKE 1 TABLET(S) BY MOUTH MON, FRI, FRI, Friday09/24/2018 10/25/2018 Inactive Generic For:COUMADIN 5MG TAB 05/25/2018 3:20:45 PM N O T I C E Last quantity doesn't match original quantity Diflucan 150 mg tablet RxNorm: 681515 Tablet(s) 1 Tablet(s) PO QW as needed 09/24/2018 10/25/2018 In active cyclobenzaprine 10 m g tablet RxNorm: 348423 1 Tablet(s) PO QD as needed 09/24/2018 11/16/2018 In active Vistaril 25 mg capsule RxNorm: 380409 1 Capsule(s) PO TID as needed for anxiet y 09/24/2018 11/29/2018 In active cholestyramine (with sugar) 4 gram oral powder RxNorm: 757346 1 Unit Dose PO QD 09/24/2018 10/23/2018 In active Pyridium 200 mg tablet RxNorm: 8727681 1 Tablet(s) PO TID 09/10/2018 09/19/2018 Inactive Pyridium 200 mg tablet RxNorm: 6028564 1 Tablet(s) PO TID 09/10/2018 09/09/2018 Inactive hydrocodone 10 mg-ac etaminophen 325 mg tablet RxNorm: 661067 1 Tablet(s) PO Q4-6H as needed for pain 09/08/2018 10/07/2018 Inactive cefdinir 300 mg capsule RxNorm: 493027 1 Capsule(s) PO BID 09/08/2018 09/21/2018 Inactive hydrocodone 10 mg-ac etaminophen 325 mg tablet RxNorm: 690068 1 Tablet(s) PO Q4-6H as needed for pain 08/13/2018 09/07/2018 Inactive cyclobenzaprine 10 m g tablet RxNorm: 933532 1 Tablet(s) PO QD as needed 07/23/2018 09/23/2018 In active Diflucan 150 mg tablet RxNorm: 374552 Tablet(s) 1 Tablet(s) PO QW as needed 07/23/2018 09/23/2018 In active Ciprodex 0.3 %-0.1 % ear drops,suspension RxNorm: 729045 4 Drop(s) left otic ( ear) BID 07/23/2018 07/29/2018 Inactive hydrocodone 10 mg-ac etaminophen 325 mg tablet RxNorm: 184661 1 Tablet(s) PO Q4-6H as needed for pain 07/16/2018 08/12/2018 Inactive penicillin V potassi um 500 mg tablet RxNorm: 896258 1 Tablet(s) PO Q6H 07/08/2018 07/17/2018 In active cyclobenzaprine 10 m g tablet RxNorm: 732080 1 Tablet(s) PO QD as needed 06/22/2018 07/22/2018 In active Vistaril 25 mg capsule RxNorm: 770061 1 Capsule(s) PO TID as needed for anxiet y 06/22/2018 09/23/2018 In active cholestyramine (with sugar) 4 gram oral powder RxNorm: 477914 1 Unit Dose PO QD 06/22/2018 09/23/2018 In active hydrocodone 10 mg-ac etaminophen 325 mg tablet RxNorm: 426521 1 Tablet(s) PO Q4-6H as needed for pain 06/17/2018 07/15/2018 Inactive cefdinir 300 mg capsule RxNorm: 695654 1 Capsule(s) PO BID 06/02/2018 06/11/2018 Inactive Diflucan 150 mg tablet RxNorm: 471293 Tablet(s) 1 Tablet(s) PO QW as needed 06/02/2018 07/22/2018 In active Coumadin 5 mg tablet RxNorm: 255427 TAKE 1 TABLET(S) BY MOUTH FRI, FRI, FRI, Friday05/25/2018 07/15/2018 Inactive Generic For:COUMADIN 5MG TAB 05/25/2018 3:20:45 PM N O T I C E Last quantity doesn't match original quantity Imitrex 50 mg tablet RxNorm: 020680 Tablet(s) 1 Tablet(s) PO at headache. re peat in 2 hours if no relief. no more than 2 tabs per day 05/19/2018 No Stop Date Active cholestyramine (with sugar) 4 gram oral powder RxNorm: 846871 1 Unit Dose PO QD 05/19/2018 11/14/2018 In active Vistaril 25 mg capsule RxNorm: 895353 1 Capsule(s) PO TID 05/19/2018 11/14/2018 Inactive Coumadin 5 mg tablet RxNorm: 327406 Tablet(s) TAKE 1 TABLET(S) BY MOUTH FRI, FRI, FRI, Friday05/19/2018 05/24/2018 Inactive Generic For:COUMADIN 5MG TA B N O T I C E Last quantity doesn't match original quantity acetazolamide 125 mg tablet RxNorm: 761889 1 Tablet(s) PO BID 05/19/2018 09/23/2018 Inactive cyclobenzaprine 10 m g tablet RxNorm: 532284 1 Tablet(s) PO QD as needed 05/19/2018 11/17/2018 In active Coumadin 7.5 mg tablet RxNorm: 180909 1 Tablet(s) PO QD , , 05/19/2018 01/04/2019 In active ketorolac 10 mg tablet RxNorm: 839978 1 Tablet(s) PO QHS as needed 05/11/2018 No Stop Date Active promethazine 12.5 mg tablet RxNorm: 757485 1 Tablet(s) PO Q6H as needed 04/23/2018 04/22/2018 In active acetazolamide 125 mg tablet RxNorm: 568934 1 Tablet(s) PO BID 04/23/2018 05/18/2018 Inactive Coumadin 5 mg tablet RxNorm: 351225 TAKE 1 TABLET(S) BY MOUTH FRI, FRI, FRI, Friday04/23/2018 05/18/2018 Inactive Generic For:COUMADIN 5MG TAB N O T I C E Last quantity doesn't match original quantity Imitrex 50 mg tablet RxNorm: 251787 1 Tablet(s) PO at headache. repeat in 2 hours if no relief. no more than 2 tabs per day 04/23/2018 05/18/2018 Inactive cyclobenzaprine 10 m g tablet RxNorm: 452563 1 Tablet(s) PO QD as needed 04/23/2018 05/18/2018 In active clindamycin HCl 300 mg capsule RxNorm: 411392 1 Capsule(s) PO TID 04/02/2018 04/11/2018 Inactive hydrocodone 10 mg-ac etaminophen 325 mg tablet RxNorm: 640636 1 Tablet(s) PO Q4-6H as needed for pain 03/24/2018 06/16/2018 Inactive promethazine 12.5 mg tablet RxNorm: 412049 1 Tablet(s) PO Q6H 03/23/2018 04/23/2018 Inactive Imitrex 50 mg tablet RxNorm: 700778 1 Tablet(s) PO at headache. repeat in 2 hours if no relief. no more than 2 tabs per day 03/23/2018 04/22/2018 Inactive Diflucan 150 mg tablet RxNorm: 659542 1 Tablet(s) PO QW as needed 03/23/2018 06/01/2018 Inactive Coumadin 5 mg tablet RxNorm: 429964 Tablet(s) 1 Tablet(s) PO Mon, Wed, Fri, Sun 03/23/2018 04/22/2018 In active Imitrex 100 mg tablet RxNorm: 487354 Tablet(s) PO take one tablet at sign of headache and repeat in 2 hours if ineffective 03/16/2018 04/01/2018 Inactive ondansetron HCl 4 mg tablet RxNorm: 606421 1 Tablet(s) PO Q4H as needed for nausea 02/24/2018 04/01/2018 In active hydrocodone 10 mg-ac etaminophen 325 mg tablet RxNorm: 876559 1 Tablet(s) PO Q4-6H as needed for pain 02/24/2018 03/23/2018 Inactive Coumadin 5 mg tablet RxNorm: 327744 Tablet(s) 1 Tablet(s) PO Mon, Wed, Fri, Sun 02/20/2018 03/22/2018 In active promethazine 12.5 mg tablet RxNorm: 216488 1 Tablet(s) PO Q6H 02/20/2018 03/22/2018 Inactive Pepcid 40 mg tablet RxNorm: 740248 1 Tablet(s) PO BID for stomach 02/16/2018 03/17/2018 In active Flagyl 500 mg tablet RxNorm: 918572 1 Tablet(s) PO TID 02/16/2018 02/25/2018 Inactive Imitrex 50 mg tablet RxNorm: 990360 1 Tablet(s) PO at headache. repeat in 2 hours if no relief. no more than 2 tabs per day 01/27/2018 03/15/2018 Inactive Coumadin 5 mg tablet RxNorm: 832982 1 Tablet(s) PO Mon, Wed, Fri, Sun 01/27/2018 02/20/2018 In active amoxicillin 875 mg t ablet RxNorm: 087085 1 Tablet(s) PO BID 01/26/2018 02/04/2018 Inactive Imitrex 50 mg tablet RxNorm: 978827 1 Tablet(s) PO at headache. repeat in 2 hours if no relief. no more than 2 tabs per day 01/26/2018 03/22/2018 Inactive cyclobenzaprine 10 m g tablet RxNorm: 458907 1 Tablet(s) PO QD as needed 01/23/2018 03/23/2018 In active promethazine 12.5 mg tablet RxNorm: 000133 1 Tablet(s) PO Q6H 01/23/2018 02/19/2018 Inactive Diflucan 150 mg tablet RxNorm: 070589 1 Tablet(s) PO QW as needed 01/22/2018 03/22/2018 Inactive acetazolamide 125 mg tablet RxNorm: 068376 1 Tablet(s) PO BID 01/22/2018 04/21/2018 Inactive Imitrex 50 mg tablet RxNorm: 614371 1 Tablet(s) PO at headache. repeat in 2 hours if no relief. no more than 2 tabs per day 01/02/2018 01/25/2018 Inactive Ciprodex 0.3 %-0.1 % ear drops,suspension RxNorm: 667026 4 Drop(s) otic (ear) BID 01/01/2018 01/07/2018 In active Coumadin 7.5 mg tablet RxNorm: 319935 1 Tablet(s) PO QD , , 12/29/2017 05/18/2018 In active Coumadin 5 mg tablet RxNorm: 721779 1 Tablet(s) PO Mon, Wed, Fri, Sun 12/29/2017 01/26/2018 In active cyclobenzaprine 10 m g tablet RxNorm: 683848 1 Tablet(s) PO QD as needed 12/29/2017 01/22/2018 In active clindamycin HCl 300 mg capsule RxNorm: 451833 1 Capsule(s) PO TID 12/26/2017 12/25/2017 Inactive Imitrex 50 mg tablet RxNorm: 856570 1 Tablet(s) PO at headache. repeat in 2 hours if no relief. no more than 2 tabs per day 12/26/2017 01/01/2018 Inactive clindamycin HCl 300 mg capsule RxNorm: 868517 1 Capsule(s) PO TID 12/26/2017 01/04/2018 Inactive Zithromax Z-Juan Francisco 250 mg tablet RxNorm: 916217 Tablet(s) PO take as directed 12/25/2017 12/25/2017 In active promethazine 12.5 mg tablet RxNorm: 254494 1 Tablet(s) PO Q6H 12/25/2017 01/22/2018 Inactive clindamycin HCl 300 mg capsule RxNorm: 853694 1 Capsule(s) PO TID 12/11/2017 12/17/2017 Inactive Vistaril 25 mg capsule RxNorm: 153518 1 Capsule(s) PO TID as needed for anxiet y 12/04/2017 05/18/2018 In active cholestyramine (with sugar) 4 gram oral powder RxNorm: 695088 1 Unit Dose PO QD 12/04/2017 05/18/2018 In active Coumadin 7.5 mg tablet RxNorm: 712121 1 Tablet(s) PO QD 12/04/2017 12/28/2017 Inactive Coumadin 5 mg tablet RxNorm: 872162 1 Tablet(s) PO Friday through Friday12/04/2017 12/28/2017 In active hydrocodone 10 mg-ac etaminophen 325 mg tablet RxNorm: 058090 1 Tablet(s) PO Q4-6H as needed for pain 12/01/2017 02/23/2018 Inactive hydrocodone 10 mg-ac etaminophen 325 mg tablet RxNorm: 175356 1 Tablet(s) PO Q4-6H as needed for pain 11/03/2017 11/30/2017 Inactive cyclobenzaprine 10 m g tablet RxNorm: 659410 1 Tablet(s) PO QD as needed 10/30/2017 12/28/2017 In active cholestyramine (with sugar) 4 gram oral powder RxNorm: 697637 1 Unit Dose PO QD 10/30/2017 11/28/2017 In active amoxicillin 875 mg t ablet RxNorm: 707853 1 Tablet(s) PO BID 10/08/2017 10/07/2017 Inactive amoxicillin 875 mg t ablet RxNorm: 197686 1 Tablet(s) PO BID 10/08/2017 10/17/2017 Inactive penicillin V potassi um 500 mg tablet RxNorm: 133934 1 Tablet(s) PO BID 10/06/2017 10/07/2017 In active hydrocodone 10 mg-ac etaminophen 325 mg tablet RxNorm: 379325 1 Tablet(s) PO Q4-6H as needed for pain 10/06/2017 11/02/2017 Inactive hydrocodone 10 mg-ac etaminophen 325 mg tablet RxNorm: 156350 1 Tablet(s) PO Q4-6H as needed for pain 10/06/2017 12/31/2018 Inactive Vigamox 0.5 % eye drops RxNorm: 180879 1 Drop(s) ophthalmic (eye) TID ONLY ADMI NISTER IF INFECTION 10/03/2017 10/02/2017 Inactive Vigamox 0.5 % eye drops RxNorm: 508092 1 Drop(s) ophthalmic (eye) TID ONLY ADMI NISTER IF INFECTION 10/03/2017 10/09/2017 Inactive cholestyramine (with sugar) 4 gram oral powder RxNorm: 287869 1 Unit Dose PO QD 09/23/2017 10/30/2017 In active acetazolamide 125 mg tablet RxNorm: 235055 1 Tablet(s) PO BID 09/23/2017 12/21/2017 Inactive Coumadin 5 mg tablet RxNorm: 345765 1 Tablet(s) PO QD FRIDAY THROUGH Friday09/17/2017 11/04/2017 In active mupirocin 2 % topica l ointment RxNorm: 987527 1 Application TOP TID 09/10/2017 11/04/2017 Inactive hydrocodone 10 mg-ac etaminophen 325 mg tablet RxNorm: 356413 1 Tablet(s) PO Q4-6H as needed for pain 09/08/2017 10/05/2017 Inactive Questran 4 gram powd er for susp in a packet RxNorm: 852927 MIX ONE PACKET IN 6 O UNCES OF APPLE SAUCE OR OTHER SOFT FOOD AND EAT ONCE DAILY 09/02/2017 11/04/2017 Inactive Diflucan 150 mg tablet RxNorm: 303944 1 Tablet(s) PO QW as needed 08/14/2017 01/21/2018 Inactive hydrocodone 10 mg-ac etaminophen 325 mg tablet RxNorm: 830387 1 Tablet(s) PO Q4-6H as needed for pain 08/11/2017 09/07/2017 Inactive Tamiflu 75 mg capsule RxNorm: 887551 1 Capsule(s) PO QD 08/11/2017 08/10/2017 Inactive Tamiflu 75 mg capsule RxNorm: 989917 1 Capsule(s) PO QD 08/11/2017 08/20/2017 Inactive Coumadin 5 mg tablet RxNorm: 321735 1 Tablet(s) PO QD FRIDAY THROUGH Friday07/22/2017 09/16/2017 In active Coumadin 5 mg tablet RxNorm: 568821 TAKE ONE TABLET BY MOUTH ONCE DAILY THROUGH Friday07/16/2017 07/21/2017 Inactive cyclobenzaprine 10 m g tablet RxNorm: 327256 1 Tablet(s) PO QD as needed 07/15/2017 10/30/2017 In active hydrocodone 10 mg-ac etaminophen 325 mg tablet RxNorm: 055671 1 Tablet(s) PO Q4-6H as needed for pain 07/14/2017 08/10/2017 Inactive warfarin 5 mg tablet RxNorm: 804567 1 Tablet(s) PO Fri Sat Sun-patibindu nt is due for PT/INR 06/18/2017 02/16/2019 Inactive Questran Light 4 gra m powder for susp in a packet RxNorm: 4229250 1 PO QD 06/18/2017 11/04/2017 In active cyclobenzaprine 10 m g tablet RxNorm: 271191 1 Tablet(s) PO QD as needed 06/18/2017 07/14/2017 In active hydrocodone 10 mg-ac etaminophen 325 mg tablet RxNorm: 950355 1 Tablet(s) PO Q4-6H as needed for pain 06/18/2017 07/13/2017 Inactive Lunesta 1 mg tablet RxNorm: 143155 1 Tablet(s) PO QHS as needed 05/27/2017 06/25/2017 Inactive Zithromax Z-Juan Francisco 250 mg tablet RxNorm: 164547 1 Tablet(s) PO Take a s directed 05/27/2017 11/04/2017 In active ProAir HFA 90 mcg/ac tuation aerosol inhaler RxNorm: 134362 2 Puff(s) INH Q4H 05/27/2017 01/19/2019 In active ProAir HFA 90 mcg/ac tuation aerosol inhaler RxNorm: 725486 2 Puff(s) INH Q4H 05/27/2017 05/26/2017 In active promethazine 6.25 mg -codeine 10 mg/5 mL syrup RxNorm: 285055 5 Milliliter(s) PO Q4 H as needed 05/27/2017 11/04/2017 Inactive Diflucan 150 mg tablet RxNorm: 462078 1 Tablet(s) PO QW as needed 05/26/2017 05/25/2017 Inactive cyclobenzaprine 10 m g tablet RxNorm: 398684 1 Tablet(s) PO QD as needed 05/20/2017 06/18/2017 In active Lunesta 2 mg tablet RxNorm: 032452 1 Tablet(s) PO QHS 05/20/2017 05/27/2017 Inactive Zithromax Z-Juan Francisco 250 mg tablet RxNorm: 783788 Tablet(s) PO As Direc liane 05/12/2017 05/19/2017 In active cyclobenzaprine 5 mg tablet RxNorm: 745347 1 Tablet(s) PO QPM 03/28/2017 05/19/2017 Inactive Vistaril 25 mg capsule RxNorm: 208511 1 Capsule(s) PO TID as needed for anxiet y 03/28/2017 09/23/2017 In active Questran 4 gram powd er for susp in a packet RxNorm: 331736 1 Unit(s) PO QD 03/06/2017 06/18/2017 In active Cipro 500 mg tablet RxNorm: 318740 1 Tablet(s) PO BID 02/27/2017 02/26/2017 Inactive Pyridium 200 mg tablet RxNorm: 3132322 1 Tablet(s) PO TID for bladder spasms 02/27/2017 03/31/2017 In active Cipro 500 mg tablet RxNorm: 801020 1 Tablet(s) PO BID 02/27/2017 03/05/2017 Inactive Levsin 0.125 mg tablet RxNorm: 4023352 1 Tablet(s) PO QID as needed for spasm 02/25/2017 11/04/2017 In active tamsulosin 0.4 mg ca psule RxNorm: 466937 1 Capsule(s) PO QPM 02/25/2017 03/26/2017 Inactive tamsulosin 0.4 mg ca psule RxNorm: 914085 1 Capsule(s) PO QPM 02/25/2017 02/24/2017 Inactive Pyridium 100 mg tablet RxNorm: 5937715 1 Tablet(s) PO TID as needed 02/21/2017 03/31/2017 In active acetazolamide 125 mg tablet RxNorm: 229450 1 Tablet(s) PO BID 02/07/2017 09/23/2017 Inactive Questran 4 gram powd er for susp in a packet RxNorm: 944238 1 Unit(s) PO QD 02/06/2017 03/06/2017 In active cyclobenzaprine 5 mg tablet RxNorm: 700418 1 Tablet(s) PO QPM 02/05/2017 03/27/2017 Inactive BuSpar 5 mg tablet RxNorm: 409443 1 Tablet(s) PO BID 02/03/2017 03/31/2017 Inactive Diflucan 150 mg tablet RxNorm: 106771 1 Tablet(s) PO QW as needed 01/15/2017 05/26/2017 Inactive Valtrex 1 gram tablet RxNorm: 214150 1 Tablet(s) PO TID 01/13/2017 01/19/2017 Inactive Vistaril 25 mg capsule RxNorm: 735689 1 Capsule(s) PO TID as needed for anxiet y 01/13/2017 03/27/2017 In active hydrocodone 10 mg-ac etaminophen 325 mg tablet RxNorm: 273515 1 Tablet(s) PO Q4-6H as needed for pain 01/13/2017 06/17/2017 Inactive Questran 4 gram powd er for susp in a packet RxNorm: 516597 1 Unit(s) PO QD 01/13/2017 09/23/2017 In active acetazolamide 125 mg tablet RxNorm: 728472 1 Tablet(s) PO BID 01/13/2017 02/06/2017 Inactive methotrexate (PF) 20 mg/0.4 mL subcutaneous auto-injector RxNorm: 4592887 Milliliter(s) SQ QW 12/26/2016 01/05/2017 Inactive Compazine 10 mg tablet RxNorm: 739067 1 Tablet(s) PO TID as needed for nausea 12/18/2016 11/04/2017 In active hydrocodone 10 mg-ac etaminophen 325 mg tablet RxNorm: 663816 1 Tablet(s) PO Q4-6H as needed for pain 12/17/2016 01/12/2017 Inactive Questran 4 gram powd er for susp in a packet RxNorm: 310725 1 Unit(s) PO QD 12/17/2016 01/13/2017 In active cyclobenzaprine 5 mg tablet RxNorm: 509320 1 Tablet(s) PO QPM 12/17/2016 02/05/2017 Inactive Questran Light 4 gra m powder for susp in a packet RxNorm: 4108517 1 PO QD 11/29/2016 06/17/2017 In active Zofran ODT 4 mg disi ntegrating tablet RxNorm: 476473 1 Tablet(s) PO Q4H as needed for nausea 11/29/2016 12/17/2016 Inactive methotrexate sodium 2.5 mg tablet RxNorm: 384473 4 Tablet(s) PO week 1 then 5 tablets po week 2 then 6 tablets weekly 11/27/2016 12/25/2016 Inactive warfarin 7.5 mg tablet RxNorm: 889023 1 Tablet(s) PO three times weekly 11/14/2016 03/31/2017 In active warfarin 7.5 mg tablet RxNorm: 966845 1 Tablet(s) PO three times weekly 11/13/2016 11/13/2016 In active Diflucan 150 mg tablet RxNorm: 087122 1 Tablet(s) PO QW as needed 11/05/2016 01/14/2017 Inactive Vistaril 25 mg capsule RxNorm: 300512 1 Capsule(s) PO TID as needed for anxiet y 11/04/2016 11/03/2016 In active Coumadin 5 mg tablet RxNorm: 459262 1 Tablet(s) PO Friday through Friday11/04/2016 06/18/2017 In active acetazolamide 125 mg tablet RxNorm: 905424 1 Tablet(s) PO BID 11/04/2016 01/13/2017 Inactive sumatriptan 100 mg t ablet RxNorm: 816832 1 Tablet(s) PO at hea dache onset. May repeat in 2 hours if headache remains 11/04/2016 11/04/2017 Inactive Vistaril 25 mg capsule RxNorm: 546517 1 Capsule(s) PO TID as needed for anxiet y 11/04/2016 01/12/2017 In active hydrocodone 10 mg-ac etaminophen 325 mg tablet RxNorm: 021716 1 Tablet(s) PO Q4-6H as needed for pain 11/04/2016 12/16/2016 Inactive Coumadin 5 mg tablet RxNorm: 720424 TAKE ONE TABLET BY MOUTH ON SUN., MON., WED., AND FRI., AND TAKE ONE AND ONE-HALF TABLETS TUE., TH., AND 10/16/2016 10/25/2016 In active Coumadin 5 mg tablet RxNorm: 631353 1 Tablet(s) PO Friday through Friday10/15/2016 11/03/2016 In active hydrocodone 10 mg-ac etaminophen 325 mg tablet RxNorm: 792162 1 Tablet(s) PO Q4-6H as needed for pain 10/14/2016 11/03/2016 Inactive hydrocodone 10 mg-ac etaminophen 325 mg tablet RxNorm: 944685 1 Tablet(s) PO Q4-6H as needed for pain 09/20/2016 10/13/2016 Inactive warfarin 7.5 mg tablet RxNorm: 488512 1 Tablet(s) PO three times weekly 09/20/2016 11/12/2016 In active Diflucan 150 mg tablet RxNorm: 548988 1 Tablet(s) PO QW as needed 08/20/2016 11/04/2016 Inactive acetazolamide 125 mg tablet RxNorm: 457543 1 Tablet(s) PO BID 08/20/2016 11/04/2016 Inactive Diflucan 150 mg tablet RxNorm: 197626 1 Tablet(s) PO QW as needed 08/20/2016 08/19/2016 Inactive Vistaril 25 mg capsule RxNorm: 721703 Capsule(s) TAKE ONE CAPSULE BY MOUTH THR EE TIMES DAILY NEEDED FOR ANXIETY 08/19/2016 11/04/2016 Inactive hydrocodone 10 mg-ac etaminophen 325 mg tablet RxNorm: 241546 1 Tablet(s) PO Q4-6H as needed for pain 08/05/2016 09/19/2016 Inactive Diflucan 150 mg tablet RxNorm: 605602 1 Tablet(s) PO QW as needed 07/19/2016 08/19/2016 Inactive tizanidine 4 mg tablet RxNorm: 643143 1-2 Tablet(s) PO QHS as needed for muscl e spasm and sleep 06/03/2016 06/10/2016 Inactive Questran Light 4 gra m powder for susp in a packet RxNorm: 2310148 1 PO QD 05/14/2016 08/11/2016 In active Macrobid 100 mg capsule RxNorm: 544899 1 Capsule(s) PO BID 04/23/2016 05/02/2016 Inactive mupirocin 2 % topica l ointment RxNorm: 852479 Apply topically to af fected area 2-3 times daily 04/17/2016 07/07/2016 Inactive Vistaril 25 mg capsule RxNorm: 384979 TAKE ONE CAPSULE BY MOUTH THREE TIMES DA LOLI NEEDED FOR ANXIETY 04/17/2016 11/04/2016 Inactive Diflucan 150 mg tablet RxNorm: 607387 1 Tablet(s) PO QW as needed 04/16/2016 07/18/2016 Inactive cyclobenzaprine 5 mg tablet RxNorm: 069761 TAKE ONE TABLET BY [facility] ONCE DAILY IN THE EVENING 03/25/2016 12/17/2016 Inactive Pyridium 100 mg tablet RxNorm: 1492277 1 Tablet(s) PO TID as needed 03/20/2016 03/19/2016 In active Diflucan 150 mg tablet RxNorm: 932099 1 Tablet(s) PO QW as needed 03/20/2016 04/15/2016 Inactive Pyridium 100 mg tablet RxNorm: 9870489 1 Tablet(s) PO TID as needed 03/20/2016 08/26/2016 In active Diflucan 150 mg tablet RxNorm: 433606 1 Tablet(s) PO QW as needed 03/19/2016 03/19/2016 Inactive Coumadin 7.5 mg tablet RxNorm: 090563 1 Tablet(s) PO QD 03/14/2016 05/12/2016 Inactive acetazolamide 125 mg tablet RxNorm: 292171 1 Tablet(s) PO BID 02/28/2016 08/20/2016 Inactive Coumadin 5 mg tablet RxNorm: 796661 1 TABLET(S) PO QD THREE TIMES A WEEK AND 1 1/2 TAB (7.5MG) FOUR TIMES A WEEK 02/28/2016 03/13/2016 Inactive Questran Light 4 gra m powder for susp in a packet RxNorm: 0239344 1 PO QD 02/13/2016 05/12/2016 In active Diflucan 150 mg tablet RxNorm: 647843 1 Tablet(s) PO QW as needed 01/19/2016 03/11/2016 Inactive Diflucan 150 mg tablet RxNorm: 488276 1 Tablet(s) PO QW as needed 01/18/2016 01/18/2016 Inactive promethazine 25 mg t ablet RxNorm: 232774 1 Tablet(s) PO Q4H as needed for nausea 12/05/2015 12/17/2016 In active Imitrex 100 mg tablet RxNorm: 446221 1 Tablet(s) PO at headache onset and may repeat in 2 hours if needed 12/05/2015 03/31/2017 Inactive Diflucan 150 mg tablet RxNorm: 114292 1 Tablet(s) PO QW as needed 11/24/2015 01/17/2016 Inactive Diflucan 150 mg tablet RxNorm: 619163 1 Tablet(s) PO QW as needed 11/21/2015 11/23/2015 Inactive Coumadin 5 mg tablet RxNorm: 635653 1 Tablet(s) PO QD three times a week and 1 1/2 tab (7.5mg) four times a week 11/13/2015 02/01/2016 Inactive Questran Light 4 gra m powder for susp in a packet RxNorm: 534229 1 PO QD 11/13/2015 02/10/2016 In active acetazolamide 125 mg tablet RxNorm: 974977 1 Tablet(s) PO BID 11/13/2015 02/10/2016 Inactive amoxicillin 875 mg t ablet RxNorm: 731610 1 Tablet(s) PO BID 11/09/2015 11/18/2015 Inactive Coumadin 7.5 mg tablet RxNorm: 776269 1 Tablet(s) PO on and 10/26/2015 10/25/2015 In active Coumadin 7.5 mg tablet RxNorm: 235088 1 Tablet(s) PO on and 10/26/2015 11/12/2015 In active Coumadin 5 mg tablet RxNorm: 138588 1 Tablet(s) PO Friday, Friday, Friday and Friday. 1.5 tablets Friday, and Friday. 10/26/2015 10/25/2015 Inactive Coumadin 5 mg tablet RxNorm: 129958 1 Tablet(s) PO Friday, Friday, Friday , and Friday. Take 1 1/2 on Friday, and Friday10/26/2015 11/12/2015 Inactive Coumadin 7.5 mg tablet RxNorm: 611523 1 Tablet(s) PO on and 10/26/2015 10/26/2015 In active Coumadin 5 mg tablet RxNorm: 201418 1 Tablet(s) PO Friday, Friday, Friday and Friday. 1.5 tablets Friday, and Friday. 10/26/2015 02/14/2016 Inactive Vistaril 25 mg capsule RxNorm: 445015 1 Capsule(s) PO TID as needed for anxiet y 10/10/2015 04/06/2016 In active cyclobenzaprine 5 mg tablet RxNorm: 027598 1 Tablet(s) PO QPM 10/10/2015 03/24/2016 Inactive Vistaril 25 mg capsule RxNorm: 170667 1 Capsule(s) PO TID as needed for anxiet y 10/10/2015 10/09/2015 In active cyclobenzaprine 5 mg tablet RxNorm: 783851 1 Tablet(s) PO QPM 10/10/2015 10/09/2015 Inactive Coumadin 5 mg tablet RxNorm: 497934 1 Tablet(s) PO Friday, Friday, Friday and Friday. 1.5 tablets Friday, and Friday. 10/02/2015 10/01/2015 Inactive Coumadin 5 mg tablet RxNorm: 025388 1 Tablet(s) PO Friday, Friday, Friday and Friday. 1.5 tablets Friday, and Friday. 10/02/2015 10/25/2015 Inactive amoxicillin 500 mg t ablet RxNorm: 932393 1 Tablet(s) PO TID 10/02/2015 10/11/2015 Inactive hydrocodone 10 mg-ac etaminophen 325 mg tablet RxNorm: 642634 1 Tablet(s) PO Q4-6H as needed for pain 10/02/2015 08/04/2016 Inactive Diflucan 150 mg tablet RxNorm: 176132 1 Tablet(s) PO QW as needed 10/02/2015 10/01/2015 Inactive amoxicillin 500 mg t ablet RxNorm: 701181 1 Tablet(s) PO TID 10/02/2015 10/01/2015 Inactive Diflucan 150 mg tablet RxNorm: 501505 1 Tablet(s) PO QW as needed 10/02/2015 10/09/2015 Inactive Coumadin 5 mg tablet RxNorm: 068478 1 Tablet(s) PO Mon.,Fri.,Fri., Sat. and Sun. 09/14/2015 10/01/2015 Inactive acetazolamide 125 mg tablet RxNorm: 343529 1 Tablet(s) PO BID 09/14/2015 11/12/2015 Inactive hydrocodone 10 mg-ac etaminophen 325 mg tablet RxNorm: 586022 1 Tablet(s) PO Q4-6H as needed for pain 09/01/2015 10/01/2015 Inactive Vistaril 25 mg capsule RxNorm: 639199 1 Capsule(s) PO TID as needed for anxiet y 08/24/2015 09/22/2015 In active baclofen 10 mg tablet RxNorm: 630873 1/2 Tablet(s) PO QAM and 1 tablet at bed time 07/27/2015 10/09/2015 Inactive Vistaril 25 mg capsule RxNorm: 483639 1 Capsule(s) PO BID 07/24/2015 08/22/2015 Inactive Savella 12.5 mg (5)- 25 mg(8)-50mg(42) tablets in a dose pack RxNorm: 391999 Tablet(s) PO as directed 07/10/2015 07/26/2015 Inactive hydrocodone 10 mg-ac etaminophen 325 mg tablet RxNorm: 468642 1 Tablet(s) PO Q6H as needed for pain 06/29/2015 08/10/2015 Inactive Coumadin 7.5 mg tablet RxNorm: 823651 1 Tablet(s) PO on and 06/21/2015 10/25/2015 In active Vistaril 25 mg capsule RxNorm: 356110 1 Capsule(s) PO BID 06/20/2015 07/24/2015 Inactive Cymbalta 30 mg capsu le,delayed release RxNorm: 162245 1 Capsule(s) PO QD 06/08/2015 07/09/2015 In active Coumadin 5 mg tablet RxNorm: 259896 1 Tablet(s) PO Mon.,Wed.,Fri., Sat. and Sun. 06/08/2015 07/07/2015 Inactive Coumadin 5 mg tablet RxNorm: 004866 1 Tablet(s) PO Mon.,Wed.,Fri., Sat. and Sun. 05/24/2015 06/07/2015 Inactive Coumadin 7.5 mg tablet RxNorm: 024533 1 Tablet(s) PO on and 05/24/2015 06/20/2015 In active Coumadin 7.5 mg tablet RxNorm: 374797 1 Tablet(s) PO on Friday No Start Date Active Vitamin B12 1000mcg Tablet RxNorm: 1/2 Tablet(s) PO QD No Start Date Active Bystolic 10 mg tablet RxNorm: 929537 3 Tablet(s) PO QAM No Start Date Active Vitamin D3 5,000 uni t tablet RxNorm: 281269 1 Tablet(s) PO QD No Start Date Active Bystolic 5 mg tablet RxNorm: 559465 1 Tablet(s) PO NOON No Start Date Active sumatriptan 100 mg t ablet RxNorm: 510287 1 Tablet(s) PO at hea dache onset. May repeat in 2 hours if headache remains No Start Date 11/03/2016 Inactive warfarin 7.5 mg tablet RxNorm: 929120 1 Tablet(s) PO three times weekly No Start Date 09/19/2016 Inactive ondansetron HCl 4 mg tablet RxNorm: 625770 1 Tablet(s) PO Q4H as needed for nausea No Start Date 02/23/2018 Inactive Imitrex 100 mg tablet RxNorm: 649021 1 Tablet(s) PO at headache onset and may repeat in 2 hours if needed No Start Date 12/04/2015 Inactive Vitamin B12 1000mcg Tablet RxNorm: 1/2 Tablet(s) PO on , hur, Sat and Sun and 1 tab all other days No Start Date 04/01/2018 Inactive warfarin 5 mg tablet RxNorm: 284625 1 Tablet(s) PO QD No Start Date 02/16/2019 Inactive baclofen 10 mg tablet RxNorm: 115726 1/2 Tablet(s) PO QAM and 1 tablet at bed time No Start Date 07/26/2015 Inactive tizanidine 4 mg tablet RxNorm: 379532 1-2 Tablet(s) PO QHS as needed for muscl e spasm and sleep No Start Date 06/02/2016 Inactive Flexeril 5 mg tablet RxNorm: 243320 1 Tablet(s) PO QD No Start Date 10/09/2015 Inactive methotrexate (PF) 20 mg/0.4 mL subcutaneous auto-injector RxNorm: 1138275 SQ QW No Start Date 12/25/2016 Inactive Bystolic 5 mg tablet RxNorm: 578026 1 Tablet(s) PO as needed No Start Date 03/15/2018 Inactive Questran Light 4 gra m powder for susp in a packet RxNorm: 612895 1 PO QD No Start Date 11/12/2015 Inactive Bystolic 10 mg tablet RxNorm: 958397 1 Tablet(s) PO QAM No Start Date 11/04/2017 Inactive warfarin 5 mg tablet RxNorm: 376194 1 Tablet(s) PO Fri Sun No Start Date 06/17/2017 Inactive hydrocodone 10 mg-ac etaminophen 325 mg tablet RxNorm: 693519 1 Tablet(s) PO 4-6hou rs as needed for pain No Start Date 08/31/2015 Inactive cyclobenzaprine 5 mg tablet RxNorm: 804491 1 Tablet(s) PO QPM No Start Date 12/16/2016 Inactive Lovenox 100 mg/mL carmona bcutaneous syringe RxNorm: 657288 1 Milliliter(s) SQ QD No Start Date 06/07/2015 Inactive Levsin 0.125 mg tablet RxNorm: 2594642 1 Tablet(s) PO QID as needed for spasm No Start Date 02/24/2017 Inactive Savella 12.5 mg (5)- 25 mg(8)-50mg(42) tablets in a dose pack RxNorm: 909481 Tablet(s) PO as directed No Start Date 07/09/2015 Inactive Coumadin 10 mg tablet RxNorm: 444272 1 Tablet(s) PO QD No Start Date 2015 Inactive tramadol 50 mg tablet RxNorm: 428109 1 Tablet(s) PO TID as needed for pain No Start Date 03/31/2017 Inactive BuSpar 5 mg tablet RxNorm: 343722 1 Tablet(s) PO BID No Start Date 02/02/2017 Inactive Vistaril 25 mg capsule RxNorm: 783541 1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 10/01/2017 VITAMIN B 12 32669 VITAM IN B12 377 pg/mL 10/01/2017 FREE T4 30378 T4 Free 1.31 ng/dL 10/01/2017 URIC ACID 51341 URIC ACID 3.9 mg/dL 10/01/2017 FERRITIN 35510 FERRITIN 68.0 ng/mL 10/01/2017 THYROID STIMULATING HORMONE 04199 TSH 1.401 uIU/mL 8 GLYCOSYLATED HEMOGLOBIN TEST 21381 Hgb A1c 15991-7 5.4 % 10/01/2017 FOLIC ACID 80451 Folate >24.0 ng/mL 10/01/2017 ASSAY TRIIODOTHYRONINE (T3) 99231 T3 Total 1.0 ng/mL 10/01/2017 ERYTHROCYTE SEDIMENTATION RATE 41367 Sed Rate 5 mm/hr 10/01/2017 MEAN GLUC 2640945 Calc M zach Gluc 108 mg/dL 10/01/2017 PT 7436085 PT 18.6 Seconds 08/07/2017 PT 1650925 INR 1.5 08/07/2017 COMPREHENSIVE METABOLIC 14228 AST 21 U/L 08/07/2017 COMPREHENSIVE METABOLIC 55407 ALT 37 U/L 08/07/2017 COMPREHENSIVE METABOLIC 75277 BUN 14 mg/dL 08/07/2017 COMPREHENSIVE METABOLIC 36508 ALBUMIN 4.5 g/dL 08/07/2017 COMPREHENSIVE METABOLIC 50789 CHLORIDE 104 mmol/L 08/07/2017 COMPREHENSIVE METABOLIC 39847 Bili Total 0.3 mg/dL 08/07/2017 COMPREHENSIVE METABOLIC 08161 ALK PHOS 55 U/L 08/07/2017 COMPREHENSIVE METABOLIC 42060 SODIUM 139 mmol/L 08/07/2017 COMPREHENSIVE METABOLIC 78001 CREATININE 0.77 mg/dL 08/07/2017 COMPREHENSIVE METABOLIC 47312 CALCIUM 9.2 mg/dL 08/07/2017 COMPREHENSIVE METABOLIC 39019 POTASSIUM 3.7 mmol/L 08/07/2017 COMPREHENSIVE METABOLIC 08256 Total Protein 6.5 g/dL 08/07/2017 COMPREHENSIVE METABOLIC 82923 Glucose 101 mg/dL 08/07/2017 COMPREHENSIVE METABOLIC 06319 Bicarbonate 25 mmol/L 08/07/2017 COMPREHENSIVE METABOLIC 79297 AGAP 10 mmol/L 08/07/2017 COMPLETE BLOOD COUNT 4903041 WBC 9.4 10e9/L 08/07/2017 COMPLETE BLOOD COUNT 9911778 RBC 4.38 10e12/L 8 COMPLETE BLOOD COUNT 2999799 HEMOGLOBIN 14.5 g/dL 08/07/2017 COMPLETE BLOOD COUNT 1454608 HEMATOCRIT 42.7 % 08/07/2017 COMPLETE BLOOD COUNT 2063463 MCV 97.5 fL 08/07/2017 COMPLETE BLOOD COUNT 0654780 MCH 33.1 pg 08/07/2017 COMPLETE BLOOD COUNT 3865997 MCHC 34.0 g/dL 08/07/2017 COMPLETE BLOOD COUNT 3417008 PLATELET COUNT 313 10e9/L 08/07/2017 COMPLETE BLOOD COUNT 2086553 Mean Plt Volume 8.6 fL 08/07/2017 COMPLETE BLOOD COUNT 3280714 Neut Auto 51.6 % 08/07/2017 COMPLETE BLOOD COUNT 1812695 Lymph Auto 40.0 % 08/07/2017 COMPLETE BLOOD COUNT 7986994 [place] Auto 6.8 % 08/07/2017 COMPLETE BLOOD COUNT 5455324 RDW 12.9 % 08/07/2017 COMPLETE BLOOD COUNT 3556031 Eos Auto 1.4 % 08/07/2017 COMPLETE BLOOD COUNT 2159898 Baso Auto 0.2 % 08/07/2017 COMPLETE BLOOD COUNT 3434009 Neutrophil Abs 4.85 10e9/L 08/07/2017 COMPLETE BLOOD COUNT 2429235 Lymphocyte Abs 3.76 10e9/L 08/07/2017 COMPLETE BLOOD COUNT 5996734 Monocyte Abs 0.64 10e9/L 08/07/2017 COMPLETE BLOOD COUNT 2877325 Eosinophil Abs 0.13 10e9/L 08/07/2017 COMPLETE BLOOD COUNT 5538072 RDW-SD 45.1 fL 08/07/2017 COMPLETE BLOOD COUNT 1506562 Basophil Abs 0.02 10e9/L 08/07/2017 GFR CALC 3804412 GFR Non Afr Amr >60 mL/min 08/07/2017 GFR CALC 3549983 GFR Afr Amr >60 mL/min 08/07/2017 COMPLETE BLOOD COUNT 6511817 WBC 9.2 10e9/L 07/15/2017 COMPLETE BLOOD COUNT 3141939 RBC 4.70 10e12/L 8 COMPLETE BLOOD COUNT 7000431 HEMOGLOBIN 15.4 g/dL 07/15/2017 COMPLETE BLOOD COUNT 0188655 HEMATOCRIT 46.2 % 07/15/2017 COMPLETE BLOOD COUNT 6951945 MCV 98.3 fL 07/15/2017 COMPLETE BLOOD COUNT 8882253 MCH 32.8 pg 07/15/2017 COMPLETE BLOOD COUNT 5959110 MCHC 33.3 g/dL 07/15/2017 COMPLETE BLOOD COUNT 9441395 PLATELET COUNT 348 10e9/L 07/15/2017 COMPLETE BLOOD COUNT 6867760 Mean Plt Volume 8.9 fL 07/15/2017 COMPLETE BLOOD COUNT 3112638 Neut Auto 60.6 % 07/15/2017 COMPLETE BLOOD COUNT 9213917 Lymph Auto 30.9 % 07/15/2017 COMPLETE BLOOD COUNT 8573910 [place] Auto 7.1 % 07/15/2017 COMPLETE BLOOD COUNT 8243753 RDW 13.1 % 07/15/2017 COMPLETE BLOOD COUNT 8148003 Eos Auto 1.2 % 07/15/2017 COMPLETE BLOOD COUNT 1470861 Baso Auto 0.2 % 07/15/2017 COMPLETE BLOOD COUNT 7681082 Neutrophil Abs 5.58 10e9/L 07/15/2017 COMPLETE BLOOD COUNT 1721552 Lymphocyte Abs 2.84 10e9/L 07/15/2017 COMPLETE BLOOD COUNT 5154741 Monocyte Abs 0.65 10e9/L 07/15/2017 COMPLETE BLOOD COUNT 4490357 Eosinophil Abs 0.11 10e9/L 07/15/2017 COMPLETE BLOOD COUNT 9652962 RDW-SD 46.1 fL 07/15/2017 COMPLETE BLOOD COUNT 3340391 Basophil Abs 0.02 10e9/L 07/15/2017 GFR CALC 1509547 GFR Non Afr Amr >60 mL/min 07/15/2017 GFR CALC 8519659 GFR Afr Amr >60 mL/min 07/15/2017 COMPREHENSIVE METABOLIC 31822 AST 16 U/L 07/15/2017 COMPREHENSIVE METABOLIC 03930 ALT 20 U/L 07/15/2017 COMPREHENSIVE METABOLIC 82850 BUN 13 mg/dL 07/15/2017 COMPREHENSIVE METABOLIC 35492 ALBUMIN 4.6 g/dL 07/15/2017 COMPREHENSIVE METABOLIC 50316 CHLORIDE 106 mmol/L 07/15/2017 COMPREHENSIVE METABOLIC 04951 Bili Total 0.3 mg/dL 07/15/2017 COMPREHENSIVE METABOLIC 50509 ALK PHOS 50 U/L 07/15/2017 COMPREHENSIVE METABOLIC 88188 SODIUM 137 mmol/L 07/15/2017 COMPREHENSIVE METABOLIC 70333 CREATININE 0.62 mg/dL 07/15/2017 COMPREHENSIVE METABOLIC 74279 CALCIUM 9.2 mg/dL 07/15/2017 COMPREHENSIVE METABOLIC 96833 POTASSIUM 3.8 mmol/L 07/15/2017 COMPREHENSIVE METABOLIC 85619 Total Protein 6.7 g/dL 07/15/2017 COMPREHENSIVE METABOLIC 46003 Glucose 83 mg/dL 07/15/2017 COMPREHENSIVE METABOLIC 82336 Bicarbonate 30 mmol/L 07/15/2017 COMPREHENSIVE METABOLIC 76434 AGAP 1 mmol/L 07/15/2017 THYROID STIMULATING HORMONE 15450 TSH 2.111 uIU/mL 201 7 COMPREHENSIVE METABOLIC 98126 AST 33 U/L 08/27/2016 COMPREHENSIVE METABOLIC 28718 ALT 55 U/L 08/27/2016 COMPREHENSIVE METABOLIC 41436 BUN 11 mg/dL 08/27/2016 COMPREHENSIVE METABOLIC 27796 ALBUMIN 4.6 g/dL 08/27/2016 COMPREHENSIVE METABOLIC 29926 CHLORIDE 103 mmol/L 08/27/2016 COMPREHENSIVE METABOLIC 18533 Bili Total 0.3 mg/dL 08/27/2016 COMPREHENSIVE METABOLIC 37899 ALK PHOS 60 U/L 08/27/2016 COMPREHENSIVE METABOLIC 55301 SODIUM 140 mmol/L 08/27/2016 COMPREHENSIVE METABOLIC 72989 CREATININE 0.69 mg/dL 08/27/2016 COMPREHENSIVE METABOLIC 56428 CALCIUM 9.3 mg/dL 08/27/2016 COMPREHENSIVE METABOLIC 28079 POTASSIUM 3.7 mmol/L 08/27/2016 COMPREHENSIVE METABOLIC 29752 Total Protein 6.8 g/dL 08/27/2016 COMPREHENSIVE METABOLIC 70069 Glucose 79 mg/dL 08/27/2016 COMPREHENSIVE METABOLIC 70642 Bicarbonate 25 mmol/L 08/27/2016 COMPREHENSIVE METABOLIC 32571 AGAP 12 mmol/L 08/27/2016 COMPLETE BLOOD COUNT 6429546 WBC 9.4 10e9/L 08/27/2016 COMPLETE BLOOD COUNT 2694568 RBC 4.35 10e12/L 7 COMPLETE BLOOD COUNT 6750289 HEMOGLOBIN 14.2 g/dL 08/27/2016 COMPLETE BLOOD COUNT 5526907 HEMATOCRIT 41.5 % 08/27/2016 COMPLETE BLOOD COUNT 6571819 MCV 95.4 fL 08/27/2016 COMPLETE BLOOD COUNT 3120333 MCH 32.6 pg 08/27/2016 COMPLETE BLOOD COUNT 4081476 MCHC 34.2 g/dL 08/27/2016 COMPLETE BLOOD COUNT 0177413 PLATELET COUNT 289 10e9/L 08/27/2016 COMPLETE BLOOD COUNT 3994672 Mean Plt Volume 9.8 fL 08/27/2016 COMPLETE BLOOD COUNT 9296436 Neut Auto 47.7 % 08/27/2016 COMPLETE BLOOD COUNT 2440544 Lymph Auto 44.2 % 08/27/2016 COMPLETE BLOOD COUNT 5866114 [place] Auto 6.6 % 08/27/2016 COMPLETE BLOOD COUNT 9084088 RDW 12.9 % 08/27/2016 COMPLETE BLOOD COUNT 6012069 Eos Auto 1.4 % 08/27/2016 COMPLETE BLOOD COUNT 4407435 Baso Auto 0.1 % 08/27/2016 COMPLETE BLOOD COUNT 8248984 Neutrophil Abs 4.48 10e9/L 08/27/2016 COMPLETE BLOOD COUNT 9841536 Lymphocyte Abs 4.15 10e9/L 08/27/2016 COMPLETE BLOOD COUNT 4326679 Monocyte Abs 0.62 10e9/L 08/27/2016 COMPLETE BLOOD COUNT 4605719 Eosinophil Abs 0.13 10e9/L 08/27/2016 COMPLETE BLOOD COUNT 2783513 RDW-SD 43.9 fL 08/27/2016 COMPLETE BLOOD COUNT 3141873 Basophil Abs 0.01 10e9/L 08/27/2016 PT 2742338 PT 15.0 Seconds 08/27/2016 PT 9768096 INR 1.2 08/27/2016 GFR CALC 3439096 GFR Afr Amr >60 mL/min 08/27/2016 GFR CALC 4138015 GFR Non Afr Amr >60 mL/min 08/27/2016 GFR CALC 3134658 GFR Non Afr Amr >60 mL/min 05/24/2016 GFR CALC 3343163 GFR Afr Amr >60 mL/min 05/24/2016 COMPREHENSIVE METABOLIC 57710 AST 19 U/L 05/24/2016 COMPREHENSIVE METABOLIC 79236 ALT 23 U/L 05/24/2016 COMPREHENSIVE METABOLIC 97219 BUN 12 mg/dL 05/24/2016 COMPREHENSIVE METABOLIC 81803 ALBUMIN 4.1 g/dL 05/24/2016 COMPREHENSIVE METABOLIC 12391 CHLORIDE 105 mmol/L 05/24/2016 COMPREHENSIVE METABOLIC 11569 Bili Total 0.4 mg/dL 05/24/2016 COMPREHENSIVE METABOLIC 98132 ALK PHOS 52 U/L 05/24/2016 COMPREHENSIVE METABOLIC 85232 SODIUM 136 mmol/L 05/24/2016 COMPREHENSIVE METABOLIC 46748 CREATININE 0.61 mg/dL 05/24/2016 COMPREHENSIVE METABOLIC 14649 CALCIUM 8.8 mg/dL 05/24/2016 COMPREHENSIVE METABOLIC 63221 POTASSIUM 3.8 mmol/L 05/24/2016 COMPREHENSIVE METABOLIC 53921 Total Protein 6.2 g/dL 05/24/2016 COMPREHENSIVE METABOLIC 72223 Glucose 95 mg/dL 05/24/2016 COMPREHENSIVE METABOLIC 14057 Bicarbonate 19 mmol/L 05/24/2016 COMPREHENSIVE METABOLIC 63717 AGAP 12 mmol/L 05/24/2016 PT 3761063 PT 25.7 Seconds 05/24/2016 PT 1292236 INR 2.4 05/24/2016 PT 9809181 PT 22.2 Seconds 04/11/2016 PT 9614364 INR 2.0 04/11/2016 PT 9799464 PT 16.5 Seconds 03/13/2016 PT 6352234 INR 1.4 03/13/2016 THYROID STIMULATING HORMONE 05933 TSH 1.151 uIU/mL 6 COMPLETE BLOOD COUNT 3291454 WBC 10.0 10e9/L 03/12/2016 COMPLETE BLOOD COUNT 0156250 RBC 4.08 10e12/L 6 COMPLETE BLOOD COUNT 6869986 HEMOGLOBIN 13.5 g/dL 03/12/2016 COMPLETE BLOOD COUNT 7058331 HEMATOCRIT 38.8 % 03/12/2016 COMPLETE BLOOD COUNT 3375342 MCV 95.1 fL 03/12/2016 COMPLETE BLOOD COUNT 1425003 MCH 33.1 pg 03/12/2016 COMPLETE BLOOD COUNT 8339337 MCHC 34.8 g/dL 03/12/2016 COMPLETE BLOOD COUNT 9512630 PLATELET COUNT 282 10e9/L 03/12/2016 COMPLETE BLOOD COUNT 2351112 Mean Plt Volume 9.6 fL 03/12/2016 COMPLETE BLOOD COUNT 9130988 Neut Auto 53.5 % 03/12/2016 COMPLETE BLOOD COUNT 6736073 Lymph Auto 39.0 % 03/12/2016 COMPLETE BLOOD COUNT 2286163 [place] Auto 5.9 % 03/12/2016 COMPLETE BLOOD COUNT 1342939 RDW 12.6 % 03/12/2016 COMPLETE BLOOD COUNT 9043487 Eos Auto 1.4 % 03/12/2016 COMPLETE BLOOD COUNT 1442329 Baso Auto 0.2 % 03/12/2016 COMPLETE BLOOD COUNT 3549341 Neutrophil Abs 5.35 10e9/L 03/12/2016 COMPLETE BLOOD COUNT 5811320 Lymphocyte Abs 3.90 10e9/L 03/12/2016 COMPLETE BLOOD COUNT 9966857 Monocyte Abs 0.59 10e9/L 03/12/2016 COMPLETE BLOOD COUNT 4167532 Eosinophil Abs 0.14 10e9/L 03/12/2016 COMPLETE BLOOD COUNT 3673274 RDW-SD 42.7 fL 03/12/2016 COMPLETE BLOOD COUNT 4098924 Basophil Abs 0.02 10e9/L 03/12/2016 COMPREHENSIVE METABOLIC 31461 AST 13 U/L 03/12/2016 COMPREHENSIVE METABOLIC 34053 ALT 11 U/L 03/12/2016 COMPREHENSIVE METABOLIC 81149 BUN 11 mg/dL 03/12/2016 COMPREHENSIVE METABOLIC 50065 ALBUMIN 4.1 g/dL 03/12/2016 COMPREHENSIVE METABOLIC 44363 CHLORIDE 107 mmol/L 03/12/2016 COMPREHENSIVE METABOLIC 10963 Bili Total 0.3 mg/dL 03/12/2016 COMPREHENSIVE METABOLIC 86553 ALK PHOS 41 U/L 03/12/2016 COMPREHENSIVE METABOLIC 79871 SODIUM 137 mmol/L 03/12/2016 COMPREHENSIVE METABOLIC 92034 CREATININE 0.62 mg/dL 03/12/2016 COMPREHENSIVE METABOLIC 46487 CALCIUM 9.0 mg/dL 03/12/2016 COMPREHENSIVE METABOLIC 10778 POTASSIUM 3.8 mmol/L 03/12/2016 COMPREHENSIVE METABOLIC 94937 Total Protein 6.1 g/dL 03/12/2016 COMPREHENSIVE METABOLIC 65885 Glucose 95 mg/dL 03/12/2016 COMPREHENSIVE METABOLIC 39488 Bicarbonate 23 mmol/L 03/12/2016 COMPREHENSIVE METABOLIC 30415 AGAP 7 mmol/L 03/12/2016 GFR CALC 8959934 GFR Non Afr Amr >60 mL/min 03/12/2016 GFR CALC 8157734 GFR Afr Amr >60 mL/min 03/12/2016 PT 4420619 PT 14.4 Seconds 02/12/2016 PT 3010121 INR 1.2 02/12/2016 PT 6479028 PT 26.1 Seconds 02/01/2016 PT 4733456 INR 2.4 02/01/2016 EB VIRUS VCA G/M + EBNA + [place] [address]|8 6665 x 2|31538 EBV VCA Ab IgG 3.70 11/13/2015 [place] VCA G/M + [place] + [place] [address]|8 6665 x 2|17803 EBV VCA Ab IgM 0.47 11/13/2015 [place] VCA G/M + [place] + [place] [address]|8 6665 x 2|16948 EBV Nuclear Ab 2.24 11/13/2015 EB VIRUS VCA G/M + EB[place] + [place] [address]|8 6665 x 2|68865 EBV Early Ab 1.37 11/13/2015 PT 6173187 PT 18.9 Seconds 11/10/2015 PT 0844190 INR 1.6 11/10/2015 PT 7026263 PT 16.8 Seconds 09/29/2015 PT 0080389 INR 1.4 09/29/2015 COMPLETE BLOOD COUNT 3393502 WBC 9.6 10e9/L 09/29/2015 COMPLETE BLOOD COUNT 0193855 RBC 4.51 10e12/L 6 COMPLETE BLOOD COUNT 8128740 HEMOGLOBIN 14.8 g/dL 09/29/2015 COMPLETE BLOOD COUNT 5604534 HEMATOCRIT 43.3 % 09/29/2015 COMPLETE BLOOD COUNT 3679531 MCV 96.0 fL 09/29/2015 COMPLETE BLOOD COUNT 0581811 MCH 32.8 pg 09/29/2015 COMPLETE BLOOD COUNT 5281395 MCHC 34.2 g/dL 09/29/2015 COMPLETE BLOOD COUNT 0892192 PLATELET COUNT 310 10e9/L 09/29/2015 COMPLETE BLOOD COUNT 4775508 Mean Plt Volume 9.7 fL 09/29/2015 COMPLETE BLOOD COUNT 1595109 Neutrophil 60.3 % 09/29/2015 COMPLETE BLOOD COUNT 9588101 Lymph Auto % 32.4 % 09/29/2015 COMPLETE BLOOD COUNT 2302957 Monocyte Auto % 6.5 % 09/29/2015 COMPLETE BLOOD COUNT 4483796 RDW 12.8 % 09/29/2015 COMPLETE BLOOD COUNT 4731026 Eosinophil 0.7 % 09/29/2015 COMPLETE BLOOD COUNT 8546937 Basophil 0.1 % 09/29/2015 COMPLETE BLOOD COUNT 4824545 Neutrophil Abs 5.79 10e9/L 09/29/2015 COMPLETE BLOOD COUNT 6893274 Lymphoctye Abs 3.11 10e9/L 09/29/2015 COMPLETE BLOOD COUNT 0156174 Monocyte Abs 0.62 10e9/L 09/29/2015 COMPLETE BLOOD COUNT 4664761 Eosinophil Abs 0.07 10e9/L 09/29/2015 COMPLETE BLOOD COUNT 2174583 RDW-SD 43.6 fL 09/29/2015 COMPLETE BLOOD COUNT 3160852 Basophil Abs 0.01 10e9/L 09/29/2015 IRON 61372 Iron 86 ug/dL 09/29/2015 COMPLETE BLOOD COUNT 1328598 WBC 9.6 10e9/L 09/29/2015 COMPLETE BLOOD COUNT 5521984 RBC 4.51 10e12/L 6 COMPLETE BLOOD COUNT 0489799 HEMOGLOBIN 14.8 g/dL 09/29/2015 COMPLETE BLOOD COUNT 1006552 HEMATOCRIT 43.3 % 09/29/2015 COMPLETE BLOOD COUNT 9274039 MCV 96.0 fL 09/29/2015 COMPLETE BLOOD COUNT 4033215 MCH 32.8 pg 09/29/2015 COMPLETE BLOOD COUNT 9354399 MCHC 34.2 g/dL 09/29/2015 COMPLETE BLOOD COUNT 0826348 PLATELET COUNT 310 10e9/L 09/29/2015 COMPLETE BLOOD COUNT 6209920 Mean Plt Volume 9.7 fL 09/29/2015 COMPLETE BLOOD COUNT 4505605 Neutrophil 60.3 % 09/29/2015 COMPLETE BLOOD COUNT 7594082 Lymph Auto % 32.4 % 09/29/2015 COMPLETE BLOOD COUNT 3103765 Monocyte Auto % 6.5 % 09/29/2015 COMPLETE BLOOD COUNT 8583913 RDW 12.8 % 09/29/2015 COMPLETE BLOOD COUNT 1905365 Eosinophil 0.7 % 09/29/2015 COMPLETE BLOOD COUNT 7681008 Basophil 0.1 % 09/29/2015 COMPLETE BLOOD COUNT 6544048 Neutrophil Abs 5.79 10e9/L 09/29/2015 COMPLETE BLOOD COUNT 0938529 Lymphoctye Abs 3.11 10e9/L 09/29/2015 COMPLETE BLOOD COUNT 3307155 Monocyte Abs 0.62 10e9/L 09/29/2015 COMPLETE BLOOD COUNT 4039836 Eosinophil Abs 0.07 10e9/L 09/29/2015 COMPLETE BLOOD COUNT 6472329 RDW-SD 43.6 fL 09/29/2015 COMPLETE BLOOD COUNT 3311894 Basophil Abs 0.01 10e9/L 09/29/2015 PT 6278832 PT 16.8 Seconds 09/29/2015 PT 5856722 INR 1.4 09/29/2015 IRON 12178 Iron 86 ug/dL 09/29/2015 PT MT IVANNA 90521 PRO T PAULIE 19.4 SEC 07/27/2015 PT MT IVANNA 06844 INR M CMC 1.7 07/27/2015 PT MT IVANNA 52944 PRO T PAULIE 21.4 SEC 06/21/2015 PT MT IVANNA 68430 INR M CMC 1.9 06/21/2015 PT MT IVANNA 87039 PRO T PAULIE 24.5 SEC 05/24/2015 PT MT IVANNA 81420 INR M CMC 2.3 05/24/2015 Review of Systems System Result Effective Dates Constitutional No fever 03/08/2019 Constitutional No fatigue 03/08/2019 Constitutional No chills 03/08/2019 Respiratory No dyspnea 0 03/08/2019 Respiratory No cough Dermatologic rash 2018 Neurologic paresthesia 0 02/17/2019 Ears/Nose/Throat/Neck epistaxis 02/17/2019 Constitutional No fever 02/08/2019 Constitutional No fatigue 02/08/2019 Constitutional No chills 02/08/2019 Respiratory No cough Respiratory No dyspnea 0 02/08/2019 Gastrointestinal constipation 02/08/2019 Gastrointestinal No abdominal pain 02/08/2019 Gastrointestinal No nausea 02/08/2019 Genitourinary/Nephrology flank pain 02/08/2019 Genitourinary/Nephrology No hematuria 02/08/2019 Genitourinary/Nephrology urinary inc ontinence 02/08/2019 Genitourinary/Nephrology urinary urgency 02/08/2019 Dermatologic No rash Musculoskeletal No myalgias 02/08/2019 Constitutional fatigue 0 01/19/2019 Constitutional No fever 01/19/2019 Constitutional chills Respiratory cough 2018 Respiratory No dyspnea 0 01/19/2019 Respiratory chest congestion 01/19/2019 Musculoskeletal myalgias 01/19/2019 Gastrointestinal No abdominal pain 01/19/2019 Gastrointestinal No constipation 01/19/2019 Gastrointestinal No diarrhea 01/19/2019 Ears/Nose/Throat/Neck sore throat 01/19/2019 Ears/Nose/Throat/Neck No sinus congestion 01/19/2019 Ears/Nose/Throat/Neck postnasal drip 01/19/2019 Ears/Nose/Throat/Neck No otalgia 01/19/2019 Ears/Nose/Throat/Neck No nasal discharge 01/19/2019 Constitutional fatigue 0 01/04/2019 Constitutional No fever 01/04/2019 Constitutional No chills 01/04/2019 Constitutional diaphoresis 01/04/2019 Respiratory No cough Respiratory No chest congestion 01/04/2019 Respiratory No chest tightness 01/04/2019 Ears/Nose/Throat/Neck sore throat 01/04/2019 Musculoskeletal myalgias 01/04/2019 Gastrointestinal No abdominal pain 01/04/2019 Gastrointestinal No constipation 01/04/2019 Gastrointestinal No diarrhea 01/04/2019 Ears/Nose/Throat/Neck otalgia 01/04/2019 Ears/Nose/Throat/Neck otorrhea 01/04/2019 Constitutional fatigue 0 12/02/2018 Constitutional No fever 12/02/2018 Constitutional No chills 12/02/2018 Gastrointestinal No abdominal pain 12/02/2018 Gastrointestinal No constipation 12/02/2018 Gastrointestinal No diarrhea 12/02/2018 Respiratory No dyspnea 0 12/02/2018 Respiratory No cough 05/2019 Ears/Nose/Throat/Neck sore throat 12/02/2018 Ears/Nose/Throat/Neck sinus congestion 12/02/2018 Ears/Nose/Throat/Neck No otalgia 12/02/2018 Ears/Nose/Throat/Neck nasal discharge 12/02/2018 Ears/Nose/Throat/Neck neck pain 12/02/2018 Dermatologic No rash 05/2019 Hematologic/Lymphatic lymph node enl argement/mass 12/02/2018 Constitutional No fever 11/30/2018 Constitutional No fatigue 11/30/2018 Constitutional No chills 11/30/2018 Neurologic dizziness 03/2019 Neurologic headache 11/21 Musculoskeletal No myalgias 11/30/2018 Respiratory No daytime hypersomnolence 11/30/2018 Respiratory No chest congestion 11/30/2018 Respiratory No chest tightness 11/30/2018 Respiratory No dyspnea 0 11/30/2018 Ears/Nose/Throat/Neck No sore throat 11/30/2018 Ears/Nose/Throat/Neck otalgia 11/30/2018 Ears/Nose/Throat/Neck otorrhea 11/30/2018 Ears/Nose/Throat/Neck sinus congestion 11/30/2018 Ears/Nose/Throat/Neck No sinusitis 11/30/2018 Ears/Nose/Throat/Neck nasal allergies 11/30/2018 Constitutional No fussiness 11/11/2018 Constitutional No night sweats 11/11/2018 Constitutional No anorexia 11/11/2018 Constitutional No chills 11/11/2018 Constitutional No diaphoresis 11/11/2018 Constitutional recent illness 11/11/2018 Constitutional fatigue 0 11/11/2018 Constitutional No fever 11/11/2018 Constitutional No insomnia 11/11/2018 Constitutional malaise 0 11/11/2018 Constitutional No weight gain/obesity 11/11/2018 Constitutional No weight loss 11/11/2018 Eyes No eye pain 019 Eyes No eyelid pain 10/22 Ears/Nose/Throat/Neck No dizziness 11/11/2018 Ears/Nose/Throat/Neck No headache 11/11/2018 Cardiovascular No dyspnea 11/11/2018 Cardiovascular No chest pain/pressure 11/11/2018 Respiratory No chest congestion 11/11/2018 Respiratory No chest tightness 11/11/2018 Respiratory No cough Gastrointestinal No constipation 11/11/2018 Gastrointestinal No diarrhea 11/11/2018 Genitourinary/Nephrology No dysuria 11/11/2018 Musculoskeletal myalgias 11/11/2018 Dermatologic No rash Dermatologic No sores Neurologic No alteration of consciousness 11/11/2018 Neurologic No headache 0 11/11/2018 Psychiatric No anxiety 0 11/11/2018 Psychiatric No depression 11/11/2018 Hematologic/Lymphatic No abnormal ec chymoses 11/11/2018 Hematologic/Lymphatic No abnormal bl eeding and bruising 11/11/2018 Constitutional No fussiness 10/08/2018 Constitutional No night sweats 10/08/2018 Constitutional No anorexia 10/08/2018 Constitutional No chills 10/08/2018 Constitutional No diaphoresis 10/08/2018 Constitutional recent illness 10/08/2018 Constitutional fatigue 0 10/08/2018 Constitutional No fever 10/08/2018 Constitutional No insomnia 10/08/2018 Constitutional No malaise 10/08/2018 Constitutional No weight gain/obesity 10/08/2018 Constitutional No weight loss 10/08/2018 Eyes No eye pain 019 Eyes No vision change Ears/Nose/Throat/Neck No dizziness 10/08/2018 Ears/Nose/Throat/Neck No nasal discharge 10/08/2018 Ears/Nose/Throat/Neck postnasal drip 10/08/2018 Ears/Nose/Throat/Neck No sinus congestion 10/08/2018 Ears/Nose/Throat/Neck No sinusitis 10/08/2018 Ears/Nose/Throat/Neck No sore throat 10/08/2018 Cardiovascular No arrhythmia 10/08/2018 Cardiovascular No cardiac murmur 10/08/2018 Cardiovascular No chest pain/pressure 10/08/2018 Cardiovascular No dyspnea 10/08/2018 Cardiovascular No fatigue 10/08/2018 Respiratory No chest congestion 10/08/2018 Respiratory No chest tightness 10/08/2018 Respiratory No cough Respiratory No dyspnea 0 10/08/2018 Gastrointestinal No abdominal pain 10/08/2018 Gastrointestinal No vomiting 10/08/2018 Genitourinary/Nephrology No dysuria 10/08/2018 Musculoskeletal No low back pain 10/08/2018 Musculoskeletal No arthralgia(s) 10/08/2018 Dermatologic No rash Dermatologic No sores Neurologic No alteration of consciousness 10/08/2018 Neurologic No dizziness 10/08/2018 Neurologic No vision change 10/08/2018 Neurologic No weakness 0 10/08/2018 Psychiatric No anxiety 0 10/08/2018 Psychiatric No depression 10/08/2018 Hematologic/Lymphatic No abnormal ec chymoses 10/08/2018 Hematologic/Lymphatic No abnormal bl eeding and bruising 10/08/2018 Constitutional No fussiness 10/07/2018 Constitutional No night sweats 10/07/2018 Constitutional No anorexia 10/07/2018 Constitutional No chills 10/07/2018 Constitutional No diaphoresis 10/07/2018 Constitutional recent illness 10/07/2018 Constitutional fatigue 0 10/07/2018 Constitutional No fever 10/07/2018 Constitutional No insomnia 10/07/2018 Constitutional malaise 0 10/07/2018 Constitutional No weight gain/obesity 10/07/2018 Constitutional No weight loss 10/07/2018 Eyes No eye pain 019 Eyes No vision change Ears/Nose/Throat/Neck No dizziness 10/07/2018 Ears/Nose/Throat/Neck nasal discharge 10/07/2018 Ears/Nose/Throat/Neck postnasal drip 10/07/2018 Ears/Nose/Throat/Neck sinus congestion 10/07/2018 Ears/Nose/Throat/Neck sinusitis 10/07/2018 Ears/Nose/Throat/Neck sore throat 10/07/2018 Cardiovascular No arrhythmia 10/07/2018 Cardiovascular No cardiac murmur 10/07/2018 Cardiovascular No chest pain/pressure 10/07/2018 Cardiovascular No dyspnea 10/07/2018 Cardiovascular No fatigue 10/07/2018 Respiratory No chest congestion 10/07/2018 Respiratory No chest tightness 10/07/2018 Respiratory No cough Respiratory No dyspnea 0 10/07/2018 Gastrointestinal No abdominal pain 10/07/2018 Gastrointestinal No vomiting 10/07/2018 Genitourinary/Nephrology No dysuria 10/07/2018 Musculoskeletal No low back pain 10/07/2018 Musculoskeletal No arthralgia(s) 10/07/2018 Dermatologic No rash Dermatologic No sores Neurologic No alteration of consciousness 10/07/2018 Neurologic No dizziness 10/07/2018 Neurologic No vision change 10/07/2018 Neurologic No weakness 0 10/07/2018 Psychiatric No anxiety 0 10/07/2018 Psychiatric No depression 10/07/2018 Hematologic/Lymphatic No abnormal ec chymoses 10/07/2018 Hematologic/Lymphatic No abnormal bl eeding and bruising 10/07/2018 Ears/Nose/Throat/Neck nasal allergies 10/07/2018 Constitutional No fussiness 09/25/2018 Constitutional No night sweats 09/25/2018 Constitutional No anorexia 09/25/2018 Constitutional No chills 09/25/2018 Constitutional No diaphoresis 09/25/2018 Constitutional No recent illness 09/25/2018 Constitutional fatigue 0 09/25/2018 Constitutional No fever 09/25/2018 Constitutional No insomnia 09/25/2018 Constitutional No malaise 09/25/2018 Constitutional No weight gain/obesity 09/25/2018 Constitutional No weight loss 09/25/2018 Eyes No eye pain 019 Eyes No vision change Eyes No cataract 019 Ears/Nose/Throat/Neck dizziness 09/25/2018 Ears/Nose/Throat/Neck headache 09/25/2018 Ears/Nose/Throat/Neck nasal allergies 09/25/2018 Ears/Nose/Throat/Neck nasal discharge 09/25/2018 Ears/Nose/Throat/Neck No otalgia 09/25/2018 Ears/Nose/Throat/Neck No postnasal drip 09/25/2018 Ears/Nose/Throat/Neck No sinus congestion 09/25/2018 Ears/Nose/Throat/Neck No sinusitis 09/25/2018 Ears/Nose/Throat/Neck No sore throat 09/25/2018 Cardiovascular No cardiac murmur 09/25/2018 Cardiovascular No chest pain/pressure 09/25/2018 Cardiovascular No dyspnea 09/25/2018 Cardiovascular No palpitations 09/25/2018 Cardiovascular No syncope 09/25/2018 Respiratory No asthma Respiratory No chest congestion 09/25/2018 Respiratory No chest tightness 09/25/2018 Respiratory No cough 10/2018 Respiratory No wheezing 09/25/2018 Gastrointestinal No abdominal pain 09/25/2018 Gastrointestinal No diarrhea 09/25/2018 Gastrointestinal No nausea 09/25/2018 Gastrointestinal No vomiting 09/25/2018 Genitourinary/Nephrology No dysuria 09/25/2018 Musculoskeletal No back pain 09/25/2018 Musculoskeletal No myalgias 09/25/2018 Dermatologic No rash 10/2018 Dermatologic No sores Neurologic No alteration of consciousness 09/25/2018 Neurologic No headache 0 09/25/2018 Psychiatric No anxiety 0 09/25/2018 Psychiatric No depression 09/25/2018 Hematologic/Lymphatic No abnormal ec chymoses 09/25/2018 Hematologic/Lymphatic No abnormal bl eeding and bruising 09/25/2018 Constitutional fatigue 0 09/08/2018 Musculoskeletal arthralgia(s) 09/08/2018 Musculoskeletal myalgias 09/08/2018 Dermatologic skin lesion 09/08/2018 Constitutional No fatigue 07/23/2018 Constitutional No fever 07/23/2018 Constitutional No chills 07/23/2018 Ears/Nose/Throat/Neck No sore throat 07/23/2018 Ears/Nose/Throat/Neck otalgia 07/23/2018 Ears/Nose/Throat/Neck sinus congestion 07/23/2018 Dermatologic No rash Musculoskeletal No myalgias 07/23/2018 Respiratory No cough Respiratory No chest congestion 07/23/2018 Respiratory No chest tightness 07/23/2018 Respiratory No dyspnea on exertion 07/23/2018 Gastrointestinal No abdominal pain 07/23/2018 Ears/Nose/Throat/Neck jaw pain 07/23/2018 Ears/Nose/Throat/Neck No hearing loss 07/08/2018 Ears/Nose/Throat/Neck No nasal discharge 07/08/2018 Ears/Nose/Throat/Neck No sinus congestion 07/08/2018 Ears/Nose/Throat/Neck No sore throat 07/08/2018 Musculoskeletal myalgias 07/08/2018 Constitutional No fever 07/02/2018 Constitutional fatigue 0 07/02/2018 Gastrointestinal No abdominal pain 07/02/2018 Gastrointestinal No constipation 07/02/2018 Gastrointestinal No diarrhea 07/02/2018 Ears/Nose/Throat/Neck sore throat 07/02/2018 Ears/Nose/Throat/Neck sinus congestion 07/02/2018 Ears/Nose/Throat/Neck otalgia 07/02/2018 Ears/Nose/Throat/Neck dental pain 07/02/2018 Respiratory No cough 03/2019 Respiratory No chest congestion 07/02/2018 Respiratory No chest tightness 07/02/2018 Dermatologic No rash 03/2019 Hematologic/Lymphatic lymph node enl argement/mass 07/02/2018 Musculoskeletal myalgias 07/02/2018 Musculoskeletal muscle weakness 07/02/2018 Constitutional fatigue 1 08/03/2017 Constitutional No fever 06/02/2018 Constitutional chills Respiratory cough 2017 Respiratory chest congestion 06/02/2018 Respiratory chest tightness 06/02/2018 Gastrointestinal No abdominal pain 06/02/2018 Gastrointestinal No constipation 06/02/2018 Gastrointestinal No diarrhea 06/02/2018 Gastrointestinal No nausea 06/02/2018 Gastrointestinal No vomiting 06/02/2018 Musculoskeletal myalgias 06/02/2018 Ears/Nose/Throat/Neck sore throat 06/02/2018 Ears/Nose/Throat/Neck otalgia 06/02/2018 Ears/Nose/Throat/Neck sinus congestion 06/02/2018 Ears/Nose/Throat/Neck sinusitis 06/02/2018 Ears/Nose/Throat/Neck nasal discharge 06/02/2018 Constitutional No fatigue 05/11/2018 Constitutional No fever 05/11/2018 Constitutional No chills 05/11/2018 Ears/Nose/Throat/Neck No dizziness 05/11/2018 Ears/Nose/Throat/Neck No dysphagia 05/11/2018 Ears/Nose/Throat/Neck facial pain 05/11/2018 Ears/Nose/Throat/Neck headache 05/11/2018 Ears/Nose/Throat/Neck sore throat 05/11/2018 Ears/Nose/Throat/Neck No postnasal drip 05/11/2018 Ears/Nose/Throat/Neck No sinus congestion 05/11/2018 Ears/Nose/Throat/Neck No sinusitis 05/11/2018 Ears/Nose/Throat/Neck otalgia 05/11/2018 Ears/Nose/Throat/Neck oral pain 05/11/2018 Gastrointestinal No abdominal pain 05/11/2018 Gastrointestinal No constipation 05/11/2018 Gastrointestinal No diarrhea 05/11/2018 Musculoskeletal No myalgias 05/11/2018 Dermatologic No rash Respiratory No cough Respiratory No chest congestion 05/11/2018 Respiratory No chest tightness 05/11/2018 Respiratory No dyspnea 1 07/11/2017 Constitutional No fatigue 04/02/2018 Constitutional No fever 04/02/2018 Respiratory No cough 04/2018 Respiratory No chest congestion 04/02/2018 Respiratory No chest tightness 04/02/2018 Ears/Nose/Throat/Neck nasal pain 04/02/2018 Ears/Nose/Throat/Neck No nasal discharge 04/02/2018 Ears/Nose/Throat/Neck No otalgia 04/02/2018 Ears/Nose/Throat/Neck sinus congestion 04/02/2018 Ears/Nose/Throat/Neck No sore throat 04/02/2018 Gastrointestinal No abdominal pain 04/02/2018 Gastrointestinal No constipation 04/02/2018 Gastrointestinal No diarrhea 04/02/2018 Dermatologic No rash 04/2018 Genitourinary/Nephrology No anuria/oliguri a 04/02/2018 Constitutional No fatigue 03/16/2018 Constitutional No fever 03/16/2018 Constitutional No chills 03/16/2018 Ears/Nose/Throat/Neck headache 03/16/2018 Ears/Nose/Throat/Neck otalgia 03/16/2018 Ears/Nose/Throat/Neck sinus congestion 03/16/2018 Ears/Nose/Throat/Neck postnasal drip 03/16/2018 Ears/Nose/Throat/Neck No sore throat 03/16/2018 Respiratory No cough Respiratory No chest congestion 03/16/2018 Respiratory No chest tightness 03/16/2018 Gastrointestinal No abdominal pain 03/16/2018 Gastrointestinal No constipation 03/16/2018 Gastrointestinal No diarrhea 03/16/2018 Musculoskeletal No myalgias 03/16/2018 Neurologic headache /09/2017 Gastrointestinal abdominal pain 02/16/2018 Gastrointestinal gas and bloating 02/16/2018 Gastrointestinal gastroesophageal reflux 02/16/2018 Gastrointestinal diarrhea 02/16/2018 Constitutional No fever 01/26/2018 Constitutional fatigue 0 01/26/2018 Musculoskeletal myalgias 01/26/2018 Ears/Nose/Throat/Neck otalgia 01/26/2018 Gastrointestinal No abdominal pain 01/26/2018 Gastrointestinal No constipation 01/26/2018 Gastrointestinal No diarrhea 01/26/2018 Gastrointestinal No nausea 01/26/2018 Genitourinary/Nephrology No anuria/oliguri a 01/26/2018 Genitourinary/Nephrology No flank pain 01/26/2018 Genitourinary/Nephrology No dysuria 01/26/2018 Genitourinary/Nephrology urinary frequency 01/26/2018 Dermatologic No rash 11/2017 Respiratory No cough 11/2017 Ears/Nose/Throat/Neck sinusitis 01/26/2018 Ears/Nose/Throat/Neck nasal discharge 01/26/2018 Neurologic dizziness 10/2017 Neurologic headache 07/0 10/2017 Ears/Nose/Throat/Neck otalgia 12/25/2017 Constitutional fatigue 0 12/11/2017 Constitutional No fever 12/11/2017 Constitutional No chills 12/11/2017 Gastrointestinal No abdominal pain 12/11/2017 Gastrointestinal No constipation 12/11/2017 Gastrointestinal No diarrhea 12/11/2017 Gastrointestinal No nausea 12/11/2017 Genitourinary/Nephrology menopausal symptoms 11/05/2017 Musculoskeletal myalgias 11/05/2017 Constitutional No fever 10/06/2017 Constitutional No fatigue 10/06/2017 Musculoskeletal arthralgia(s) 10/06/2017 Hematologic/Lymphatic pulmonary embolus 10/06/2017 Neurologic paresthesia 0 10/01/2017 Constitutional fatigue 0 07/15/2017 Constitutional No fever 07/15/2017 Constitutional chills Ears/Nose/Throat/Neck sore throat 07/15/2017 Ears/Nose/Throat/Neck No otalgia 07/15/2017 Ears/Nose/Throat/Neck nasal discharge 07/15/2017 Respiratory cough 2017 Gastrointestinal abdominal pain 07/15/2017 Gastrointestinal No diarrhea 07/15/2017 Gastrointestinal No vomiting 07/15/2017 Gastrointestinal No nausea 07/15/2017 Genitourinary/Nephrology No anuria/oliguri a 07/15/2017 Genitourinary/Nephrology No dysuria 07/15/2017 Musculoskeletal myalgias 07/15/2017 Dermatologic No rash Neurologic headache 06/24 Ears/Nose/Throat/Neck headache 07/15/2017 Ears/Nose/Throat/Neck sinus congestion 07/15/2017 Cardiovascular No chest pain/pressure 07/15/2017 Gastrointestinal gastroesophageal reflux 07/15/2017 Hematologic/Lymphatic lymph node enl argement/mass 07/15/2017 Hematologic/Lymphatic pulmonary embolus 07/15/2017 Psychiatric stress 07/15 Constitutional chills Constitutional fatigue 0 07/01/2017 Constitutional fever 02/2018 Respiratory cough 2017 Respiratory chest congestion 07/01/2017 Respiratory chest tightness 07/01/2017 Respiratory No dyspnea on exertion 07/01/2017 Cardiovascular No dyspnea 07/01/2017 Cardiovascular No exercise intolerance 07/01/2017 Ears/Nose/Throat/Neck sore throat 07/01/2017 Ears/Nose/Throat/Neck otalgia 07/01/2017 Hematologic/Lymphatic lymph node enl argement/mass 07/01/2017 Constitutional fever 10/2016 Constitutional chills Ears/Nose/Throat/Neck No headache 05/27/2017 Cardiovascular No fatigue 05/27/2017 Musculoskeletal myalgias 05/27/2017 Ears/Nose/Throat/Neck No postnasal drip 05/27/2017 Ears/Nose/Throat/Neck No sore throat 05/27/2017 Respiratory cough 2016 Respiratory chest tightness 05/27/2017 Respiratory chest congestion 05/27/2017 Respiratory dyspnea on exertion 05/27/2017 Constitutional insomnia 05/27/2017 Constitutional insomnia 05/20/2017 Constitutional fatigue 1 07/20/2016 Musculoskeletal back pain 05/20/2017 Psychiatric No drug abuse 05/20/2017 Psychiatric anxiety 04/24 Psychiatric stress 05/20 Constitutional No night sweats 04/22/2017 Constitutional No fatigue 04/22/2017 Constitutional No fever 04/22/2017 Constitutional No insomnia 04/22/2017 Constitutional No weight loss 04/22/2017 Neurologic headache 03/25 Eyes vision change 04/22 Constitutional fatigue 1 Ears/Nose/Throat/Neck sinus congestion 04/01/2017 Ears/Nose/Throat/Neck sinusitis 04/01/2017 Respiratory No asthma Respiratory No cough 03/2017 Respiratory No dyspnea 1 Respiratory No pleuritic pain 04/01/2017 Respiratory No productive sputum 04/01/2017 Respiratory No wheezing 04/01/2017 Neurologic headache 03/23 Constitutional fatigue 0 02/05/2017 Constitutional fever Ears/Nose/Throat/Neck sore throat 02/05/2017 Respiratory No asthma Respiratory No cough Respiratory No dyspnea 0 02/05/2017 Respiratory No pleuritic pain 02/05/2017 Respiratory No productive sputum 02/05/2017 Respiratory No wheezing 02/05/2017 Musculoskeletal myalgias 02/05/2017 Neurologic No dizziness 02/05/2017 Neurologic No headache 0 02/05/2017 Neurologic No neck pain 02/05/2017 Neurologic No syncope Musculoskeletal neck pain 02/05/2017 Constitutional fatigue 0 01/13/2017 Constitutional fever Ears/Nose/Throat/Neck No hearing loss 01/13/2017 Ears/Nose/Throat/Neck No nasal discharge 01/13/2017 Ears/Nose/Throat/Neck No sinus congestion 01/13/2017 Ears/Nose/Throat/Neck sore throat 01/13/2017 Respiratory No asthma Respiratory No cough Respiratory No dyspnea 0 01/13/2017 Respiratory No pleuritic pain 01/13/2017 Respiratory No productive sputum 01/13/2017 Respiratory No wheezing 01/13/2017 Musculoskeletal myalgias 01/13/2017 Neurologic No dizziness 01/13/2017 Neurologic No headache 0 01/13/2017 Neurologic No neck pain 01/13/2017 Neurologic No syncope Musculoskeletal arthralgia(s) 11/27/2016 Musculoskeletal myalgias 11/27/2016 Constitutional fever 12/2016 Musculoskeletal arthralgia(s) 08/27/2016 Musculoskeletal myalgias 08/27/2016 Cardiovascular No arrhythmia 08/27/2016 Cardiovascular No chest pain/pressure 08/27/2016 Cardiovascular No edema 08/27/2016 Cardiovascular No exercise intolerance 08/27/2016 Cardiovascular No orthopnea 08/27/2016 Cardiovascular No palpitations 08/27/2016 Respiratory No asthma Respiratory cough 2016 Respiratory No dyspnea 0 08/27/2016 Respiratory No pleuritic pain 08/27/2016 Respiratory No productive sputum 08/27/2016 Respiratory No wheezing 08/27/2016 Ears/Nose/Throat/Neck nasal discharge 08/27/2016 Constitutional No night sweats 04/23/2016 Constitutional No anorexia 04/23/2016 Constitutional No chills 04/23/2016 Constitutional fatigue 1 06/23/2015 Constitutional fever 06/2015 Cardiovascular No arrhythmia 04/23/2016 Cardiovascular No chest pain/pressure 04/23/2016 Cardiovascular No edema 04/23/2016 Cardiovascular No exercise intolerance 04/23/2016 Cardiovascular No orthopnea 04/23/2016 Cardiovascular No palpitations 04/23/2016 Respiratory No asthma Respiratory No cough 06/2015 Respiratory No dyspnea 1 06/23/2015 Respiratory No pleuritic pain 04/23/2016 Respiratory No productive sputum 04/23/2016 Respiratory No wheezing 04/23/2016 Gastrointestinal No hemorrhoids 04/23/2016 Gastrointestinal No hepatitis 04/23/2016 Gastrointestinal abdominal pain 04/23/2016 Gastrointestinal No constipation 04/23/2016 Gastrointestinal No diarrhea 04/23/2016 Gastrointestinal No gastroesophageal reflu x 04/23/2016 Gastrointestinal No melena 04/23/2016 Gastrointestinal No nausea 04/23/2016 Gastrointestinal No vomiting 04/23/2016 Genitourinary/Nephrology dysuria 04/23/2016 Genitourinary/Nephrology No flank pain 04/23/2016 Genitourinary/Nephrology No hematuria 04/23/2016 Genitourinary/Nephrology pelvic pain 04/23/2016 Genitourinary/Nephrology No urinary urgenc y 04/23/2016 Genitourinary/Nephrology No urinary frequency 04/23/2016 Genitourinary/Nephrology No urinary incontinence 04/23/2016 Dermatologic No rash 06/2015 Dermatologic No scar 06/2015 Hematologic/Lymphatic No abnormal ec chymoses 04/23/2016 Hematologic/Lymphatic No petechiae 04/23/2016 Hematologic/Lymphatic No abnormal bl eeding and bruising 04/23/2016 Hematologic/Lymphatic No anemia 04/23/2016 Hematologic/Lymphatic No lymph node enlargement/mass 04/23/2016 Musculoskeletal myalgias 04/23/2016 Constitutional No night sweats 04/17/2016 Constitutional No recent illness 04/17/2016 Constitutional No fatigue 04/17/2016 Constitutional No fever 04/17/2016 Constitutional No insomnia 04/17/2016 Constitutional No weight loss 04/17/2016 Cardiovascular No arrhythmia 04/17/2016 Cardiovascular No chest pain/pressure 04/17/2016 Cardiovascular No edema 04/17/2016 Cardiovascular No exercise intolerance 04/17/2016 Cardiovascular No orthopnea 04/17/2016 Cardiovascular No palpitations 04/17/2016 Respiratory No asthma Respiratory No cough Respiratory No dyspnea 1 Respiratory No pleuritic pain 04/17/2016 Respiratory No productive sputum 04/17/2016 Respiratory No wheezing 04/17/2016 Gastrointestinal No hemorrhoids 04/17/2016 Gastrointestinal No hepatitis 04/17/2016 Gastrointestinal No abdominal pain 04/17/2016 Gastrointestinal No constipation 04/17/2016 Gastrointestinal No diarrhea 04/17/2016 Gastrointestinal No gastroesophageal reflu x 04/17/2016 Gastrointestinal No melena 04/17/2016 Gastrointestinal No nausea 04/17/2016 Gastrointestinal No vomiting 04/17/2016 Dermatologic No rash Dermatologic No scar Dermatologic sores 04/17 Neurologic headache 02/22 Musculoskeletal arthralgia(s) 03/12/2016 Musculoskeletal myalgias 03/12/2016 Constitutional fatigue 0 11/10/2015 Constitutional fever Constitutional anorexia 11/10/2015 Ears/Nose/Throat/Neck dysphagia 11/10/2015 Ears/Nose/Throat/Neck sore throat 11/10/2015 Respiratory No cough Constitutional No night sweats 11/09/2015 Constitutional No recent illness 11/09/2015 Constitutional fatigue 0 11/09/2015 Constitutional No fever 11/09/2015 Constitutional No insomnia 11/09/2015 Constitutional No weight loss 11/09/2015 Constitutional chills Eyes No eye pain 016 Eyes No photophobia 10/21 Eyes No vision change Eyes No visual disturbance 11/09/2015 Ears/Nose/Throat/Neck No hearing loss 11/09/2015 Ears/Nose/Throat/Neck No nasal discharge 11/09/2015 Ears/Nose/Throat/Neck No sinus congestion 11/09/2015 Ears/Nose/Throat/Neck sore throat 11/09/2015 Cardiovascular No chest pain/pressure 11/09/2015 Cardiovascular No edema 11/09/2015 Cardiovascular No exercise intolerance 11/09/2015 Cardiovascular No orthopnea 11/09/2015 Cardiovascular No palpitations 11/09/2015 Respiratory No asthma Respiratory No cough Respiratory No dyspnea 0 11/09/2015 Respiratory No pleuritic pain 11/09/2015 Respiratory No productive sputum 11/09/2015 Respiratory No wheezing 11/09/2015 Dermatologic No rash Dermatologic No scar Hematologic/Lymphatic No abnormal ec chymoses 11/09/2015 Hematologic/Lymphatic No petechiae 11/09/2015 Hematologic/Lymphatic No abnormal bl eeding and bruising 11/09/2015 Hematologic/Lymphatic No anemia 11/09/2015 Hematologic/Lymphatic lymph node enl argement/mass 11/09/2015 Musculoskeletal arthralgia(s) 10/10/2015 Musculoskeletal low back pain 10/10/2015 Constitutional fatigue 0 10/02/2015 Constitutional No fever 10/02/2015 Hematologic/Lymphatic lymph node enl argement/mass 10/02/2015 Ears/Nose/Throat/Neck No facial pain 10/02/2015 Ears/Nose/Throat/Neck nasal discharge 10/02/2015 Ears/Nose/Throat/Neck otalgia 10/02/2015 Ears/Nose/Throat/Neck No otorrhea 10/02/2015 Ears/Nose/Throat/Neck postnasal drip 10/02/2015 Ears/Nose/Throat/Neck sore throat 10/02/2015 Ears/Nose/Throat/Neck sinus congestion 10/02/2015 Psychiatric stress 07/10 Psychiatric disturbances of emotion 07/10/2015 Cardiovascular arrhythmia 07/10/2015 Ears/Nose/Throat/Neck sinus congestion 06/27/2015 Ears/Nose/Throat/Neck eustachian tub e dysfunction 06/27/2015 Dermatologic scar 2015 Constitutional fatigue 0 06/27/2015 Constitutional No fever 06/27/2015 Respiratory cough 2015 Constitutional fatigue 1 08/09/2014 Constitutional fever Neurologic pain, generalized 06/08/2015 Psychiatric stress 06/08 Psychiatric anxiety 05/23 Cardiovascular palpitations 05/24/2015 Musculoskeletal stiffness 05/24/2015 Musculoskeletal myalgias 05/24/2015 Musculoskeletal joint complaint 05/24/2015 Musculoskeletal No swelling 05/24/2015 Musculoskeletal back pain 05/24/2015 Genitourinary/Nephrology urinary urgency 05/24/2015 Constitutional fatigue 1 07/25/2014 Ears/Nose/Throat/Neck eustachian tub e dysfunction 05/24/2015 Ears/Nose/Throat/Neck otalgia 05/24/2015 Hematologic/Lymphatic lymph node enl argement/mass 05/24/2015 Respiratory No asthma Respiratory No cough 07/2014 Respiratory No dyspnea 1 07/25/2014 Respiratory No pleuritic pain 05/24/2015 Respiratory No productive sputum 05/24/2015 Respiratory No wheezing 05/24/2015 Eyes visual disturbance 05/24/2015 Dermatologic No rash 07/2014 Dermatologic No scar 07/2014 Psychiatric anxiety 07/2014 Gastrointestinal No hemorrhoids 05/24/2015 Gastrointestinal No hepatitis 05/24/2015 Gastrointestinal No abdominal pain 05/24/2015 Gastrointestinal No constipation 05/24/2015 Gastrointestinal No diarrhea 05/24/2015 Gastrointestinal No gastroesophageal reflu x 05/24/2015 Gastrointestinal No melena 05/24/2015 Gastrointestinal No nausea 05/24/2015 Gastrointestinal No vomiting 05/24/2015 Neurologic No dizziness 05/24/2015 Neurologic No headache 1 07/25/2014 Neurologic No neck pain 05/24/2015 Neurologic No syncope Endocrine No goiter 07/2014 Endocrine No hyperglycemia 05/24/2015 Endocrine No hypoglycemia 05/24/2015 Physical Exam Exam Name System Name It em Name Status Result Effective Dates Notes Full Exam - General Constitutional general appearance Overall: well nourished 03/08/2019 None Full Exam - General Constitutional general appearance Overall: in no acute distress 03/08/2019 None Full Exam - General Integument inspection of skin Location: right leg 03/08/2019 posterior thigh near buttocks there is a collection of small vesicles that are tender to touch. area is approx 1.5 cm in diameter. Full Exam - General Neurologic mental status Overall: alert 9 None Full Exam - General Neurologic mental status Overall: oriented 03/08/2019 None Full Exam - General Constitutional general appearance Overall: well nourished 02/17/2019 None Full Exam - General Constitutional general appearance Overall: well developed 02/17/2019 None Full Exam - General Constitutional general appearance Overall: in no acute distress 02/17/2019 None Full Exam - General Neurologic mental status Overall: alert 9 None Full Exam - General Neurologic mental status Overall: oriented 02/17/2019 None Full Exam - General Psychiatric mood and affect Overall: normal mood and affect 02/17/2019 None Full Exam - General Ears/Nose/Throat otoscopic exam Overall: external auditory canals clear 02/17/2019 None Full Exam - General Ears/Nose/Throat otoscopic exam Overall: tympanic membranes clear 02/17/2019 None Full Exam - General Ears/Nose/Throat internal nose Overall: bilateral nasal cavities clear 02/17/2019 None Full Exam - General Ears/Nose/Throat oral cavity/pharynx/larynx Overall: oral mucosa clear 02/17/2019 None Full Exam - General Ears/Nose/Throat oral cavity/pharynx/larynx Oropharynx: postnasal drainage 02/17/2019 with cobbestoning Full Exam - General Constitutional general appearance Overall: well nourished 02/08/2019 None Full Exam - General Constitutional general appearance Overall: in no acute distress 02/08/2019 None Full Exam - General Respiratory respiratory effort/rhythm Overall: no retractions 02/08/2019 None Full Exam - General Respiratory respiratory effort/rhythm Overall: normal rate 02/08/2019 None Full Exam - General Respiratory auscultation Overall: breath sounds clear bilater ally 02/08/2019 None Full Exam - General Cardiovascular auscultation of heart Overall: regular rate 02/08/2019 None Full Exam - General Cardiovascular auscultation of heart Overall: no murmurs 02/08/2019 None Full Exam - General Neurologic mental status Overall: alert 9 None Full Exam - General Neurologic mental status Overall: oriented 02/08/2019 None Full Exam - General Constitutional general appearance Overall: well nourished 01/19/2019 None Full Exam - General Constitutional general appearance Overall: in no acute distress 01/19/2019 None Full Exam - General Ears/Nose/Throat otoscopic exam Overall: external auditory canals clear 01/19/2019 None Full Exam - General Ears/Nose/Throat otoscopic exam Overall: tympanic membranes clear 01/19/2019 None Full Exam - General Ears/Nose/Throat oral cavity/pharynx/larynx Right tonsil: enlarged 01/19/2019 None Full Exam - General Ears/Nose/Throat oral cavity/pharynx/larynx Right tonsil: erythematous 01/19/2019 None Full Exam - General Ears/Nose/Throat oral cavity/pharynx/larynx Left tonsil: erythematous 01/19/2019 None Full Exam - General Ears/Nose/Throat oral cavity/pharynx/larynx Oropharynx: postnasal drainage 01/19/2019 None Full Exam - General Respiratory respiratory effort/rhythm Overall: no retractions 01/19/2019 None Full Exam - General Respiratory respiratory effort/rhythm Overall: normal rate 01/19/2019 None Full Exam - General Respiratory auscultation Overall: breath sounds clear bilater ally 01/19/2019 None Full Exam - General Cardiovascular auscultation of heart Overall: regular rate 01/19/2019 None Full Exam - General Cardiovascular auscultation of heart Overall: no murmurs 01/19/2019 None Full Exam - General Lymphatic neck nodes Left anterior cervical chain: shotty 01/19/2019 None Full Exam - General Lymphatic neck nodes Left anterior cervical chain: tender 01/19/2019 None Full Exam - General Lymphatic neck nodes Right anterior cervical chain: shott y 01/19/2019 None Full Exam - General Lymphatic neck nodes Right anterior cervical chain: tende r 01/19/2019 None Full Exam - General Neurologic mental status Overall: alert 9 None Full Exam - General Neurologic mental status Overall: oriented 01/19/2019 None Full Exam - General Constitutional general appearance Overall: well nourished 01/04/2019 None Full Exam - General Constitutional general appearance Overall: in no acute distress 01/04/2019 None Full Exam - General Ears/Nose/Throat otoscopic exam Left tympanic membrane: air- fluid level 01/04/2019 None Full Exam - General Ears/Nose/Throat otoscopic exam Right tympanic membrane: air- fluid level 01/04/2019 None Full Exam - General Ears/Nose/Throat oral cavity/pharynx/larynx Oropharynx: postnasal drainage 01/04/2019 None Full Exam - General Ears/Nose/Throat oral cavity/pharynx/larynx Oropharynx: erythema 01/04/2019 None Full Exam - General Respiratory respiratory effort/rhythm Overall: no retractions 01/04/2019 None Full Exam - General Respiratory respiratory effort/rhythm Overall: normal rate 01/04/2019 None Full Exam - General Respiratory auscultation Overall: breath sounds clear bilater ally 01/04/2019 None Full Exam - General Lymphatic neck nodes Left anterior cervical chain: shotty 01/04/2019 None Full Exam - General Lymphatic neck nodes Left anterior cervical chain: tender 01/04/2019 None Full Exam - General Lymphatic neck nodes Right anterior cervical chain: shott y 01/04/2019 None Full Exam - General Lymphatic neck nodes Right anterior cervical chain: tende r 01/04/2019 None Full Exam - General Neurologic mental status Overall: alert 9 None Full Exam - General Neurologic mental status Overall: oriented 01/04/2019 None Full Exam - General Constitutional general appearance Overall: well nourished 12/03/2018 None Full Exam - General Constitutional general appearance Overall: well developed 12/03/2018 None Full Exam - General Constitutional general appearance Overall: in no acute distress 12/03/2018 None Full Exam - General Neurologic mental status Overall: alert 06/13/201 9 None Full Exam - General Neurologic mental status Overall: oriented 12/03/2018 None Full Exam - General Psychiatric mood and affect Overall: normal mood and affect 12/03/2018 None Full Exam - General Respiratory auscultation Overall: breath sounds clear bilater ally 12/03/2018 None Full Exam - General Cardiovascular auscultation of heart Overall: regular rate 12/03/2018 None Full Exam - General Cardiovascular auscultation of heart Overall: normal heart sounds 12/03/2018 None Full Exam - General Cardiovascular auscultation of heart Overall: no murmurs 12/03/2018 None Full Exam - General Abdomen abdominal exam Overall: no masses 12/03/2018 None Full Exam - General Abdomen abdominal exam Overall: normal bowel sounds 12/03/2018 None Full Exam - General Abdomen abdominal exam Overall: soft 12/03/2018 None Full Exam - General Abdomen abdominal exam Left upper quadrant: tender to palpa tion 12/03/2018 None Full Exam - General Abdomen abdominal exam Left lower quadrant: tender to palpa tion 12/03/2018 None Full Exam - General Abdomen abdominal exam Left lower quadrant: mass present 12/03/2018 small marble sized lipoma lateral side area Full Exam - General Constitutional general appearance Overall: well nourished 12/02/2018 None Full Exam - General Constitutional general appearance Overall: in no acute distress 12/02/2018 None Full Exam - General Respiratory respiratory effort/rhythm Overall: normal rate 12/02/2018 None Full Exam - General Respiratory respiratory effort/rhythm Overall: no retractions 12/02/2018 None Full Exam - General Respiratory auscultation Overall: breath sounds clear bilater ally 12/02/2018 None Full Exam - General Cardiovascular auscultation of heart Overall: regular rate 12/02/2018 None Full Exam - General Cardiovascular auscultation of heart Overall: no murmurs 12/02/2018 None Full Exam - General Ears/Nose/Throat otoscopic exam Overall: external auditory canals clear 12/02/2018 None Full Exam - General Ears/Nose/Throat otoscopic exam Overall: tympanic membranes clear 12/02/2018 None Full Exam - General Ears/Nose/Throat oral cavity/pharynx/larynx Oropharynx: postnasal drainage 12/02/2018 None Full Exam - General Ears/Nose/Throat oral cavity/pharynx/larynx Oropharynx: erythema 12/02/2018 None Full Exam - General Lymphatic neck nodes Overall: anterior cervical chain stevie ign 12/02/2018 None Full Exam - General Lymphatic neck nodes Right posterior cervical chain: numb er of palpable nodes: 1 12/02/2018 None Full Exam - General Lymphatic neck nodes Right posterior cervical chain: tend er 12/02/2018 None Full Exam - General Neurologic mental status Overall: alert 9 None Full Exam - General Neurologic mental status Overall: oriented 12/02/2018 None Full Exam - General Constitutional general appearance Overall: well nourished 11/30/2018 None Full Exam - General Constitutional general appearance Overall: in no acute distress 11/30/2018 None Full Exam - General Respiratory respiratory effort/rhythm Overall: no retractions 11/30/2018 None Full Exam - General Respiratory respiratory effort/rhythm Overall: normal rate 11/30/2018 None Full Exam - General Respiratory auscultation Overall: breath sounds clear bilater ally 11/30/2018 None Full Exam - General Cardiovascular auscultation of heart Overall: regular rate 11/30/2018 None Full Exam - General Cardiovascular auscultation of heart Overall: no murmurs 11/30/2018 None Full Exam - General Ears/Nose/Throat otoscopic exam Right tympanic membrane: a normal exam 11/30/2018 None Full Exam - General Ears/Nose/Throat otoscopic exam Left tympanic membrane: air- fluid level 11/30/2018 None Full Exam - General Ears/Nose/Throat otoscopic exam Left tympanic membrane: erythematous 11/30/2018 None Full Exam - General Ears/Nose/Throat oral cavity/pharynx/larynx Oropharynx: a normal exam 11/30/2018 None Full Exam - General Lymphatic neck nodes Overall: anterior cervical chain stevie ign 11/30/2018 None Full Exam - General Neurologic mental status Overall: alert 9 None Full Exam - General Neurologic mental status Overall: oriented 11/30/2018 None Full Exam - General Constitutional general appearance Overall: well nourished 11/11/2018 None Full Exam - General Constitutional general appearance Overall: well developed 11/11/2018 None Full Exam - General Constitutional general appearance Overall: in no acute distress 11/11/2018 None Full Exam - General Eyes conjunctiva/eyelids Overall: conjunctiva clear 11/11/2018 None Full Exam - General Eyes conjunctiva/eyelids Overall: cornea clear 11/11/2018 None Full Exam - General Eyes conjunctiva/eyelids Overall: eyelids normal 11/11/2018 None Full Exam - General Eyes pupils and irises Overall: pupils equal, round, reacti ve to light and accomodation 11/11/2018 None Full Exam - General Ears/Nose/Throat otoscopic exam Overall: external auditory canals clear 11/11/2018 None Full Exam - General Ears/Nose/Throat otoscopic exam Overall: tympanic membranes clear 11/11/2018 None Full Exam - General Ears/Nose/Throat oral cavity/pharynx/larynx Overall: oral mucosa clear 11/11/2018 None Full Exam - General Neck inspection of neck Overall: normal size 11/11/2018 None Full Exam - General Neck inspection of neck Overall: normal appearance 11/11/2018 None Full Exam - General Respiratory auscultation Overall: breath sounds clear bilater ally 11/11/2018 None Full Exam - General Cardiovascular auscultation of heart Overall: regular rate 11/11/2018 None Full Exam - General Cardiovascular auscultation of heart Overall: normal heart sounds 11/11/2018 None Full Exam - General Respiratory respiratory effort/rhythm Overall: no retractions 11/11/2018 None Full Exam - General Respiratory respiratory effort/rhythm Overall: normal rate 11/11/2018 None Full Exam - General Cardiovascular extremities Overall: No edema 11/11/2018 None Full Exam - General Cardiovascular extremities Overall: No cyanosis 11/11/2018 None Full Exam - General Abdomen abdominal exam Overall: no tenderness 11/11/2018 None Full Exam - General Abdomen abdominal exam Overall: soft 11/11/2018 None Full Exam - General Abdomen abdominal exam Overall: no masses 11/11/2018 None Full Exam - General Abdomen abdominal exam Overall: normal bowel sounds 11/11/2018 None Full Exam - General Lymphatic neck nodes Overall: anterior cervical chain stevie ign 11/11/2018 None Full Exam - General Lymphatic neck nodes Overall: posterior cervical chain be nign 11/11/2018 None Full Exam - General Musculoskeletal head and neck Overall: head atraumatic 11/11/2018 None Full Exam - General Musculoskeletal head and neck Overall: cervical spine benign 11/11/2018 None Full Exam - General Musculoskeletal gait and station Overall: normal gait 11/11/2018 None Full Exam - General Musculoskeletal gait and station Overall: normal station 11/11/2018 None Full Exam - General Integument inspection of skin Overall: no rash, lesions 11/11/2018 None Full Exam - General Neurologic mental status Overall: alert 9 None Full Exam - General Neurologic mental status Overall: oriented 11/11/2018 None Full Exam - General Psychiatric mood and affect Overall: normal mood and affect 11/11/2018 None Full Exam - General Constitutional general appearance Overall: well nourished 10/08/2018 None Full Exam - General Constitutional general appearance Overall: well developed 10/08/2018 None Full Exam - General Constitutional general appearance Overall: in no acute distress 10/08/2018 None Full Exam - General Eyes conjunctiva/eyelids Overall: conjunctiva clear 10/08/2018 None Full Exam - General Eyes conjunctiva/eyelids Overall: cornea clear 10/08/2018 None Full Exam - General Eyes conjunctiva/eyelids Overall: eyelids normal 10/08/2018 None Full Exam - General Eyes pupils and irises Overall: pupils equal, round, reacti ve to light and accomodation 10/08/2018 None Full Exam - General Ears/Nose/Throat otoscopic exam Overall: external auditory canals clear 10/08/2018 None Full Exam - General Ears/Nose/Throat otoscopic exam Overall: tympanic membranes clear 10/08/2018 None Full Exam - General Ears/Nose/Throat internal nose Turbinates: erythema 10/08/2018 None Full Exam - General Ears/Nose/Throat internal nose Turbinates: bilateral 10/08/2018 None Full Exam - General Ears/Nose/Throat internal nose Drainage: purulent 10/08/2018 None Full Exam - General Ears/Nose/Throat internal nose Drainage: bilateral 10/08/2018 None Full Exam - General Ears/Nose/Throat internal nose Drainage: thick 10/08/2018 None Full Exam - General Ears/Nose/Throat internal nose Left nasal cavity: mucosal edema 10/08/2018 None Full Exam - General Ears/Nose/Throat internal nose Right nasal cavity: mucosal edema 10/08/2018 None Full Exam - General Ears/Nose/Throat internal nose Sinus tenderness: left maxillary 10/08/2018 None Full Exam - General Ears/Nose/Throat internal nose Sinus tenderness: right maxillary 10/08/2018 None Full Exam - General Ears/Nose/Throat oral cavity/pharynx/larynx Posterior Pharynx: clear post nasal drainage 10/08/2018 None Full Exam - General Ears/Nose/Throat oral cavity/pharynx/larynx Oropharynx: erythema 10/08/2018 None Full Exam - General Neck inspection of neck Overall: normal size 10/08/2018 None Full Exam - General Neck inspection of neck Overall: normal appearance 10/08/2018 None Full Exam - General Respiratory auscultation Overall: breath sounds clear bilater ally 10/08/2018 None Full Exam - General Respiratory respiratory effort/rhythm Overall: no retractions 10/08/2018 None Full Exam - General Respiratory respiratory effort/rhythm Overall: normal rate 10/08/2018 None Full Exam - General Cardiovascular auscultation of heart Overall: regular rate 10/08/2018 None Full Exam - General Cardiovascular auscultation of heart Overall: normal heart sounds 10/08/2018 None Full Exam - General Cardiovascular auscultation of heart Overall: no murmurs 10/08/2018 None Full Exam - General Cardiovascular extremities Overall: No edema 10/08/2018 None Full Exam - General Lymphatic neck nodes Overall: anterior cervical chain stevie ign 10/08/2018 None Full Exam - General Lymphatic neck nodes Overall: posterior cervical chain be nign 10/08/2018 None Full Exam - General Musculoskeletal head and neck Overall: head atraumatic 10/08/2018 None Full Exam - General Musculoskeletal head and neck Overall: cervical spine benign 10/08/2018 None Full Exam - General Musculoskeletal gait and station Overall: normal gait 10/08/2018 None Full Exam - General Musculoskeletal gait and station Overall: normal station 10/08/2018 None Full Exam - General Integument inspection of skin Overall: no rash, lesions 10/08/2018 None Full Exam - General Neurologic mental status Overall: alert 9 None Full Exam - General Neurologic mental status Overall: oriented 10/08/2018 None Full Exam - General Neurologic motor Overall: normal bulk, tone 10/08/2018 None Full Exam - General Psychiatric orientation/consciousness Overall: oriented to person, place and time 10/08/2018 None Full Exam - General Psychiatric mood and affect Overall: normal mood and affect 10/08/2018 None Full Exam - General Psychiatric judgment/insight Overall: judgment and insight intact 10/08/2018 None Full Exam - General Constitutional general appearance Overall: well nourished 10/07/2018 None Full Exam - General Constitutional general appearance Overall: well developed 10/07/2018 None Full Exam - General Constitutional general appearance Overall: in no acute distress 10/07/2018 None Full Exam - General Eyes conjunctiva/eyelids Overall: conjunctiva clear 10/07/2018 None Full Exam - General Eyes conjunctiva/eyelids Overall: cornea clear 10/07/2018 None Full Exam - General Eyes conjunctiva/eyelids Overall: eyelids normal 10/07/2018 None Full Exam - General Eyes pupils and irises Overall: pupils equal, round, reacti ve to light and accomodation 10/07/2018 None Full Exam - General Ears/Nose/Throat otoscopic exam Overall: external auditory canals clear 10/07/2018 None Full Exam - General Ears/Nose/Throat otoscopic exam Overall: tympanic membranes clear 10/07/2018 None Full Exam - General Ears/Nose/Throat internal nose Turbinates: erythema 10/07/2018 None Full Exam - General Ears/Nose/Throat internal nose Turbinates: bilateral 10/07/2018 None Full Exam - General Ears/Nose/Throat internal nose Drainage: purulent 10/07/2018 None Full Exam - General Ears/Nose/Throat internal nose Drainage: bilateral 10/07/2018 None Full Exam - General Ears/Nose/Throat internal nose Drainage: thick 10/07/2018 None Full Exam - General Ears/Nose/Throat internal nose Left nasal cavity: mucosal edema 10/07/2018 None Full Exam - General Ears/Nose/Throat internal nose Right nasal cavity: mucosal edema 10/07/2018 None Full Exam - General Ears/Nose/Throat internal nose Sinus tenderness: left maxillary 10/07/2018 None Full Exam - General Ears/Nose/Throat internal nose Sinus tenderness: right maxillary 10/07/2018 None Full Exam - General Ears/Nose/Throat oral cavity/pharynx/larynx Posterior Pharynx: clear post nasal drainage 10/07/2018 None Full Exam - General Ears/Nose/Throat oral cavity/pharynx/larynx Oropharynx: erythema 10/07/2018 None Full Exam - General Neck inspection of neck Overall: normal size 10/07/2018 None Full Exam - General Neck inspection of neck Overall: normal appearance 10/07/2018 None Full Exam - General Respiratory auscultation Overall: breath sounds clear bilater ally 10/07/2018 None Full Exam - General Respiratory respiratory effort/rhythm Overall: no retractions 10/07/2018 None Full Exam - General Respiratory respiratory effort/rhythm Overall: normal rate 10/07/2018 None Full Exam - General Cardiovascular auscultation of heart Overall: regular rate 10/07/2018 None Full Exam - General Cardiovascular auscultation of heart Overall: normal heart sounds 10/07/2018 None Full Exam - General Cardiovascular auscultation of heart Overall: no murmurs 10/07/2018 None Full Exam - General Cardiovascular extremities Overall: No edema 10/07/2018 None Full Exam - General Lymphatic neck nodes Overall: anterior cervical chain stevie ign 10/07/2018 None Full Exam - General Lymphatic neck nodes Overall: posterior cervical chain be nign 10/07/2018 None Full Exam - General Musculoskeletal head and neck Overall: head atraumatic 10/07/2018 None Full Exam - General Musculoskeletal head and neck Overall: cervical spine benign 10/07/2018 None Full Exam - General Musculoskeletal gait and station Overall: normal gait 10/07/2018 None Full Exam - General Musculoskeletal gait and station Overall: normal station 10/07/2018 None Full Exam - General Integument inspection of skin Overall: no rash, lesions 10/07/2018 None Full Exam - General Neurologic mental status Overall: alert 9 None Full Exam - General Neurologic mental status Overall: oriented 10/07/2018 None Full Exam - General Neurologic motor Overall: normal bulk, tone 10/07/2018 None Full Exam - General Psychiatric orientation/consciousness Overall: oriented to person, place and time 10/07/2018 None Full Exam - General Psychiatric mood and affect Overall: normal mood and affect 10/07/2018 None Full Exam - General Psychiatric judgment/insight Overall: judgment and insight intact 10/07/2018 None Full Exam - General Ears/Nose/Throat otoscopic exam Left tympanic membrane: effusion 10/07/2018 None Full Exam - General Ears/Nose/Throat otoscopic exam Right tympanic membrane: bulging 10/07/2018 None Full Exam - General Ears/Nose/Throat otoscopic exam Right tympanic membrane: erythematous 10/07/2018 None Full Exam - General Constitutional general appearance Overall: well nourished 09/25/2018 None Full Exam - General Constitutional general appearance Overall: well developed 09/25/2018 None Full Exam - General Constitutional general appearance Overall: in no acute distress 09/25/2018 None Full Exam - General Eyes conjunctiva/eyelids Overall: conjunctiva clear 09/25/2018 None Full Exam - General Eyes conjunctiva/eyelids Overall: cornea clear 09/25/2018 None Full Exam - General Eyes conjunctiva/eyelids Overall: eyelids normal 09/25/2018 None Full Exam - General Eyes pupils and irises Overall: pupils equal, round, reacti ve to light and accomodation 09/25/2018 None Full Exam - General Ears/Nose/Throat otoscopic exam Overall: external auditory canals clear 09/25/2018 None Full Exam - General Ears/Nose/Throat otoscopic exam Overall: tympanic membranes clear 09/25/2018 None Full Exam - General Ears/Nose/Throat oral cavity/pharynx/larynx Overall: oral mucosa clear 09/25/2018 None Full Exam - General Ears/Nose/Throat oral cavity/pharynx/larynx Posterior Pharynx: clear post nasal drainage 09/25/2018 None Full Exam - General Ears/Nose/Throat oral cavity/pharynx/larynx Overall: mobile tongue benign 09/25/2018 None Full Exam - General Neck inspection of neck Overall: normal size 09/25/2018 None Full Exam - General Neck inspection of neck Overall: normal appearance 09/25/2018 None Full Exam - General Respiratory auscultation Overall: breath sounds clear bilater ally 09/25/2018 None Full Exam - General Respiratory respiratory effort/rhythm Overall: no retractions 09/25/2018 None Full Exam - General Respiratory respiratory effort/rhythm Overall: normal rate 09/25/2018 None Full Exam - General Cardiovascular auscultation of heart Overall: regular rate 09/25/2018 None Full Exam - General Cardiovascular auscultation of heart Overall: normal heart sounds 09/25/2018 None Full Exam - General Cardiovascular extremities Overall: No edema 09/25/2018 None Full Exam - General Lymphatic neck nodes Overall: anterior cervical chain stevie ign 09/25/2018 None Full Exam - General Lymphatic neck nodes Overall: posterior cervical chain be nign 09/25/2018 None Full Exam - General Musculoskeletal head and neck Overall: head atraumatic 09/25/2018 None Full Exam - General Musculoskeletal head and neck Overall: cervical spine benign 09/25/2018 None Full Exam - General Musculoskeletal gait and station Overall: normal gait 09/25/2018 None Full Exam - General Musculoskeletal gait and station Overall: normal station 09/25/2018 None Full Exam - General Neurologic gait Overall: no ataxia, no unsteadiness 09/25/2018 None Full Exam - General Psychiatric orientation/consciousness Overall: oriented to person, place and time 09/25/2018 None Full Exam - General Psychiatric mood and affect Overall: normal mood and affect 09/25/2018 None Full Exam - General Integument inspection of skin Location right hand 09/25/2018 None Full Exam - General Integument inspection of skin Dermatitis: erythema 09/25/2018 had spot taken off of hand yesterday by dermatology- minimal redness, no swelling, oozing Full Exam - General Constitutional general appearance Overall: well nourished 09/08/2018 None Full Exam - General Constitutional general appearance Overall: well developed 09/08/2018 None Full Exam - General Constitutional general appearance Overall: in no acute distress 09/08/2018 None Full Exam - General Neurologic mental status Overall: alert 9 None Full Exam - General Neurologic mental status Overall: oriented 09/08/2018 None Full Exam - General Psychiatric mood and affect Overall: normal mood and affect 09/08/2018 None Full Exam - General Integument inspection of skin Location: right hand 09/08/2018 erythemic papule 3mm with scaling to daksha k of right hand Full Exam - General Ears/Nose/Throat oral cavity/pharynx/larynx Oropharynx: erythema 09/08/2018 injected Full Exam - General Constitutional general appearance Overall: well nourished 07/23/2018 None Full Exam - General Constitutional general appearance Overall: in no acute distress 07/23/2018 None Full Exam - General Respiratory respiratory effort/rhythm Overall: no retractions 07/23/2018 None Full Exam - General Respiratory respiratory effort/rhythm Overall: normal rate 07/23/2018 None Full Exam - General Respiratory auscultation Overall: breath sounds clear bilater ally 07/23/2018 None Full Exam - General Ears/Nose/Throat otoscopic exam Left external auditory canal: erythematous 07/23/2018 None Full Exam - General Ears/Nose/Throat otoscopic exam Left external auditory canal: edematous 07/23/2018 Non e Full Exam - General Ears/Nose/Throat otoscopic exam Left tympanic membrane: a normal exam 07/23/2018 None Full Exam - General Ears/Nose/Throat otoscopic exam Right external auditory canal: a normal exam 07/23/2018 None Full Exam - General Ears/Nose/Throat otoscopic exam Right external auditory canal: minimal cerumen 07/23/2018 None Full Exam - General Ears/Nose/Throat otoscopic exam Right tympanic membrane: a normal exam 07/23/2018 None Full Exam - General Ears/Nose/Throat oral cavity/pharynx/larynx Oropharynx: postnasal drainage 07/23/2018 None Full Exam - General Ears/Nose/Throat oral cavity/pharynx/larynx Oropharynx: erythema 07/23/2018 None Full Exam - General Ears/Nose/Throat internal nose Sinus tenderness: left frontal 07/23/2018 None Full Exam - General Ears/Nose/Throat internal nose Sinus tenderness: left maxillary 07/23/2018 None Full Exam - General Lymphatic neck nodes Overall: anterior cervical chain stevie ign 07/23/2018 None Full Exam - General Lymphatic neck nodes Overall: posterior cervical chain be nign 07/23/2018 None Full Exam - General Neurologic mental status Overall: alert 9 None Full Exam - General Neurologic mental status Overall: oriented 07/23/2018 None Full Exam - General Constitutional general appearance Overall: well nourished 07/08/2018 None Full Exam - General Constitutional general appearance Overall: well developed 07/08/2018 None Full Exam - General Constitutional general appearance Overall: in no acute distress 07/08/2018 None Full Exam - General Neurologic mental status Overall: alert 9 None Full Exam - General Neurologic mental status Overall: oriented 07/08/2018 None Full Exam - General Psychiatric mood and affect Overall: normal mood and affect 07/08/2018 None Full Exam - General Respiratory auscultation Overall: breath sounds clear bilater ally 07/08/2018 None Full Exam - General Cardiovascular auscultation of heart Overall: regular rate 07/08/2018 None Full Exam - General Cardiovascular auscultation of heart Overall: normal heart sounds 07/08/2018 None Full Exam - General Cardiovascular auscultation of heart Overall: no murmurs 07/08/2018 None Full Exam - General Constitutional general appearance Overall: well nourished 07/02/2018 None Full Exam - General Constitutional general appearance Overall: in no acute distress 07/02/2018 None Full Exam - General Respiratory respiratory effort/rhythm Overall: no retractions 07/02/2018 None Full Exam - General Respiratory respiratory effort/rhythm Overall: normal rate 07/02/2018 None Full Exam - General Respiratory auscultation Overall: breath sounds clear bilater ally 07/02/2018 None Full Exam - General Cardiovascular auscultation of heart Overall: regular rate 07/02/2018 None Full Exam - General Cardiovascular auscultation of heart Overall: no murmurs 07/02/2018 None Full Exam - General Ears/Nose/Throat otoscopic exam Left tympanic membrane: air- fluid level 07/02/2018 None Full Exam - General Ears/Nose/Throat otoscopic exam Right tympanic membrane: air- fluid level 07/02/2018 None Full Exam - General Ears/Nose/Throat oral cavity/pharynx/larynx Oropharynx: postnasal drainage 07/02/2018 None Full Exam - General Ears/Nose/Throat oral cavity/pharynx/larynx Oropharynx: erythema 07/02/2018 None Full Exam - General Lymphatic neck nodes Right posterior cervical chain: tend er 07/02/2018 and enlarged Full Exam - General Lymphatic neck nodes Left anterior cervical chain: tender 07/02/2018 None Full Exam - General Lymphatic neck nodes Right anterior cervical chain: tende r 07/02/2018 None Full Exam - General Constitutional general appearance Overall: well nourished 06/02/2018 None Full Exam - General Constitutional general appearance Overall: in no acute distress 06/02/2018 None Full Exam - General Cardiovascular auscultation of heart Overall: regular rate 06/02/2018 None Full Exam - General Cardiovascular auscultation of heart Overall: no murmurs 06/02/2018 None Full Exam -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 Left tympanic membrane: erythematous 07/01/2017 None Full Exam - General Ears/Nose/Throat otoscopic exam Left tympanic membrane: bulging 07/01/2017 None Full Exam - General Ears/Nose/Throat otoscopic exam Right tympanic membrane: a normal exam 07/01/2017 None Full Exam - General Lymphatic neck nodes Left posterior cervical chain: tende r 07/01/2017 enlarged Full Exam - General Lymphatic neck nodes Right posterior cervical chain: firm 07/01/2017 enlarged Full Exam - General Neurologic mental status Overall: alert 8 None Full Exam - General Neurologic mental status Overall: oriented 07/01/2017 None Full Exam - General Constitutional general appearance Overall: well nourished 05/27/2017 None Full Exam - General Constitutional general appearance Overall: in no acute distress 05/27/2017 None Full Exam - General Ears/Nose/Throat otoscopic exam Overall: external auditory canals clear 05/27/2017 None Full Exam - General Ears/Nose/Throat otoscopic exam Overall: tympanic membranes clear 05/27/2017 None Full Exam - General Ears/Nose/Throat oral cavity/pharynx/larynx Overall: oral mucosa clear 05/27/2017 None Full Exam - General Ears/Nose/Throat internal nose Turbinates: erythema 05/27/2017 None Full Exam - General Ears/Nose/Throat internal nose Turbinates: bilateral edema 05/27/2017 None Full Exam - General Ears/Nose/Throat internal nose Drainage: cloudy 05/27/2017 None Full Exam - General Respiratory respiratory effort/rhythm Overall: no retractions 05/27/2017 None Full Exam - General Respiratory respiratory effort/rhythm Overall: normal rate 05/27/2017 None Full Exam - General Respiratory auscultation Right upper lung field: diminished 05/27/2017 None Full Exam - General Cardiovascular auscultation of heart Overall: regular rate 05/27/2017 None Full Exam - General Cardiovascular auscultation of heart Overall: no murmurs 05/27/2017 None Full Exam - General Lymphatic neck nodes Left anterior cervical chain: shotty 05/27/2017 None Full Exam - General Lymphatic neck nodes Left anterior cervical chain: tender 05/27/2017 None Full Exam - General Lymphatic neck nodes Right anterior cervical chain: shott y 05/27/2017 None Full Exam - General Lymphatic neck nodes Right anterior cervical chain: tende r 05/27/2017 None Full Exam - General Respiratory auscultation Right lower lung field: diminished 05/27/2017 None Full Exam - General Respiratory auscultation Right lower lung field: crackles 05/27/2017 None Full Exam - General Neurologic mental status Overall: alert 7 None Full Exam - General Neurologic mental status Overall: oriented 05/27/2017 None Full Exam - General Constitutional general appearance Overall: well nourished 05/20/2017 None Full Exam - General Constitutional general appearance Overall: in no acute distress 05/20/2017 None Full Exam - General Musculoskeletal spine, ribs and pelvis Spine: tender @ cervical spine 05/20/2017 bilaterally, more muscula r. Full Exam - General Psychiatric orientation/consciousness Overall: oriented to person, place and time 05/20/2017 None Full Exam - General Psychiatric behavior/psychomotor activity Overall: no tics, normal psychomotor activity 05/20/2017 None Full Exam - General Psychiatric mood and affect Overall: normal mood and affect 05/20/2017 None Full Exam - General Psychiatric appearance Overall: well-groomed, good eye cont act 05/20/2017 None Full Exam - General Psychiatric speech Overall: normal quality, no aphasia 05/20/2017 None Full Exam - General Psychiatric attention Overall: normal digit recall and num felix repeating 05/20/2017 None Full Exam - General Psychiatric thought Overall: normal form and content 05/20/2017 None Full Exam - General Psychiatric cognition/memory Overall: immediate, recent, remote memory intact 05/20/2017 None Full Exam - General Psychiatric judgment/insight Overall: judgment and insight intact 05/20/2017 None Full Exam - General Neurologic mental status Overall: alert 7 None Full Exam - General Neurologic mental status Overall: oriented 05/20/2017 None Full Exam - General Neurologic motor Overall: normal bulk, tone 05/20/2017 None Full Exam - General Neurologic coordination Overall: no dysdiadochokinesis, no d ysmetria 05/20/2017 None Full Exam - General Neurologic gait Overall: no ataxia, no unsteadiness 05/20/2017 None Full Exam - General Neurologic sensation Overall: intact to touch, pin, vibra tion, proprioception 05/20/2017 None Full Exam - General Constitutional general appearance Overall: well nourished 04/22/2017 None Full Exam - General Constitutional general appearance Overall: well developed 04/22/2017 None Full Exam - General Constitutional general appearance Overall: in no acute distress 04/22/2017 None Full Exam - General Neurologic mental status Overall: alert 7 None Full Exam - General Neurologic mental status Overall: oriented 04/22/2017 None Full Exam - General Psychiatric mood and affect Overall: normal mood and affect 04/22/2017 None Full Exam - General Respiratory auscultation Overall: breath sounds clear bilater ally 04/22/2017 None Full Exam - General Cardiovascular auscultation of heart Overall: regular rate 04/22/2017 None Full Exam - General Cardiovascular auscultation of heart Overall: normal heart sounds 04/22/2017 None Full Exam - General Cardiovascular auscultation of heart S4 (atrial gallop): present 04/22/2017 None Full Exam - General Cardiovascular auscultation of heart Murmur: previously known murmur unchanged 04/22/2017 None Full Exam - General Cardiovascular extremities Overall: no clubbing 04/22/2017 None Full Exam - General Cardiovascular extremities Overall: No edema 04/22/2017 None Full Exam - General Cardiovascular extremities Overall: No cyanosis 04/22/2017 None Full Exam - General Constitutional general appearance Overall: well nourished 04/01/2017 None Full Exam - General Constitutional general appearance Overall: well developed 04/01/2017 None Full Exam - General Constitutional general appearance Overall: in no acute distress 04/01/2017 None Full Exam - General Ears/Nose/Throat otoscopic exam Overall: external auditory canals clear 04/01/2017 None Full Exam - General Ears/Nose/Throat otoscopic exam Left tympanic membrane: air- fluid level 04/01/2017 None Full Exam - General Ears/Nose/Throat otoscopic exam Right tympanic membrane: air- fluid level 04/01/2017 None Full Exam - General Ears/Nose/Throat internal nose Turbinates: erythema 04/01/2017 None Full Exam - General Ears/Nose/Throat internal nose Turbinates: hypertrophy 04/01/2017 None Full Exam - General Ears/Nose/Throat internal nose Drainage: cloudy 04/01/2017 None Full Exam - General Ears/Nose/Throat oral cavity/pharynx/larynx Oropharynx: postnasal drainage 04/01/2017 None Full Exam - General Neck inspection of neck Overall: normal size 04/01/2017 None Full Exam - General Neck inspection of neck Overall: no masses 04/01/2017 None Full Exam - General Respiratory auscultation Overall: breath sounds clear bilater ally 04/01/2017 None Full Exam - General Cardiovascular auscultation of heart Overall: regular rate 04/01/2017 None Full Exam - General Cardiovascular auscultation of heart Overall: normal heart sounds 04/01/2017 None Full Exam - General Cardiovascular auscultation of heart Overall: no murmurs 04/01/2017 None Full Exam - General Lymphatic neck nodes Left anterior cervical chain: shotty 04/01/2017 None Full Exam - General Lymphatic neck nodes Left anterior cervical chain: tender 04/01/2017 None Full Exam - General Lymphatic neck nodes Right anterior cervical chain: shott y 04/01/2017 None Full Exam - General Lymphatic neck nodes Right anterior cervical chain: tende r 04/01/2017 None Full Exam - General Neurologic mental status Overall: alert 7 None Full Exam - General Neurologic mental status Overall: oriented 04/01/2017 None Full Exam - General Psychiatric mood and affect Overall: normal mood and affect 04/01/2017 None Full Exam - General Constitutional general appearance Overall: well nourished 02/05/2017 None Full Exam - General Constitutional general appearance Overall: well developed 02/05/2017 None Full Exam - General Constitutional general appearance Overall: in no acute distress 02/05/2017 None Full Exam - General Ears/Nose/Throat otoscopic exam Overall: external auditory canals clear 02/05/2017 None Full Exam - General Ears/Nose/Throat otoscopic exam Overall: tympanic membranes clear 02/05/2017 None Full Exam - General Ears/Nose/Throat internal nose Turbinates: hypertrophy 02/05/2017 None Full Exam - General Ears/Nose/Throat internal nose Drainage: clear 02/05/2017 None Full Exam - General Ears/Nose/Throat oral cavity/pharynx/larynx Oropharynx: erythema 02/05/2017 None Full Exam - General Neck inspection of neck Overall: normal size 02/05/2017 None Full Exam - General Neck inspection of neck Overall: no masses 02/05/2017 None Full Exam - General Respiratory auscultation Overall: breath sounds clear bilater ally 02/05/2017 None Full Exam - General Cardiovascular auscultation of heart Overall: regular rate 02/05/2017 None Full Exam - General Cardiovascular auscultation of heart Overall: normal heart sounds 02/05/2017 None Full Exam - General Cardiovascular auscultation of heart Overall: no murmurs 02/05/2017 None Full Exam - General Lymphatic neck nodes Left anterior cervical chain: shotty 02/05/2017 None Full Exam - General Lymphatic neck nodes Left anterior cervical chain: tender 02/05/2017 None Full Exam - General Lymphatic neck nodes Right anterior cervical chain: shott y 02/05/2017 None Full Exam - General Lymphatic neck nodes Right anterior cervical chain: tende r 02/05/2017 None Full Exam - General Neurologic mental status Overall: alert 7 None Full Exam - General Neurologic mental status Overall: oriented 02/05/2017 None Full Exam - General Psychiatric mood and affect Overall: normal mood and affect 02/05/2017 None Full Exam - General Constitutional general appearance Overall: well nourished 01/13/2017 None Full Exam - General Constitutional general appearance Overall: well developed 01/13/2017 None Full Exam - General Constitutional general appearance Overall: in no acute distress 01/13/2017 None Full Exam - General Neurologic mental status Overall: alert 7 None Full Exam - General Neurologic mental status Overall: oriented 01/13/2017 None Full Exam - General Psychiatric mood and affect Overall: normal mood and affect 01/13/2017 None Full Exam - General Ears/Nose/Throat otoscopic exam Overall: external auditory canals clear 01/13/2017 None Full Exam - General Ears/Nose/Throat otoscopic exam Overall: tympanic membranes clear 01/13/2017 None Full Exam - General Ears/Nose/Throat internal nose Turbinates: hypertrophy 01/13/2017 None Full Exam - General Ears/Nose/Throat internal nose Drainage: clear 01/13/2017 None Full Exam - General Ears/Nose/Throat oral cavity/pharynx/larynx Oropharynx: erythema 01/13/2017 None Full Exam - General Neck inspection of neck Overall: normal size 01/13/2017 None Full Exam - General Neck inspection of neck Overall: no masses 01/13/2017 None Full Exam - General Respiratory auscultation Overall: breath sounds clear bilater ally 01/13/2017 None Full Exam - General Cardiovascular auscultation of heart Overall: regular rate 01/13/2017 None Full Exam - General Cardiovascular auscultation of heart Overall: normal heart sounds 01/13/2017 None Full Exam - General Cardiovascular auscultation of heart Overall: no murmurs 01/13/2017 None Full Exam - General Lymphatic neck nodes Left anterior cervical chain: shotty 01/13/2017 None Full Exam - General Lymphatic neck nodes Left anterior cervical chain: tender 01/13/2017 None Full Exam - General Lymphatic neck nodes Right anterior cervical chain: shott y 01/13/2017 None Full Exam - General Lymphatic neck nodes Right anterior cervical chain: tende r 01/13/2017 None Full Exam - General Ears/Nose/Throat oral cavity/pharynx/larynx Oral mucosa: aphthous ulcer 01/13/2017 None Full Exam - General Constitutional general appearance Overall: well nourished 11/27/2016 None Full Exam - General Constitutional general appearance Overall: well developed 11/27/2016 None Full Exam - General Constitutional general appearance Overall: in no acute distress 11/27/2016 None Full Exam - General Neurologic mental status Overall: alert 7 None Full Exam - General Neurologic mental status Overall: oriented 11/27/2016 None Full Exam - General Psychiatric mood and affect Overall: normal mood and affect 11/27/2016 None Full Exam - General Constitutional general appearance Overall: well nourished 08/27/2016 None Full Exam - General Constitutional general appearance Overall: well developed 08/27/2016 None Full Exam - General Constitutional general appearance Overall: in no acute distress 08/27/2016 None Full Exam - General Neurologic mental status Overall: alert 7 None Full Exam - General Neurologic mental status Overall: oriented 08/27/2016 None Full Exam - General Psychiatric mood and affect Overall: normal mood and affect 08/27/2016 None Full Exam - General Respiratory auscultation Overall: breath sounds clear bilater ally 08/27/2016 None Full Exam - General Cardiovascular auscultation of heart Overall: regular rate 08/27/2016 None Full Exam - General Cardiovascular auscultation of heart Overall: normal heart sounds 08/27/2016 None Full Exam - General Cardiovascular extremities Overall: no clubbing 08/27/2016 None Full Exam - General Cardiovascular extremities Overall: No edema 08/27/2016 None Full Exam - General Cardiovascular extremities Overall: No cyanosis 08/27/2016 None Full Exam - General Ears/Nose/Throat otoscopic exam Overall: external auditory canals clear 08/27/2016 None Full Exam - General Ears/Nose/Throat otoscopic exam Left tympanic membrane: injected 08/27/2016 None Full Exam - General Ears/Nose/Throat otoscopic exam Right tympanic membrane: injected 08/27/2016 None Full Exam - General Ears/Nose/Throat internal nose Overall: bilateral nasal cavities clear 08/27/2016 None Full Exam - General Ears/Nose/Throat oral cavity/pharynx/larynx Overall: oral mucosa clear 08/27/2016 None Full Exam - General Abdomen abdominal exam Overall: no masses 08/27/2016 None Full Exam - General Abdomen abdominal exam Overall: no tenderness 08/27/2016 None Full Exam - General Abdomen abdominal exam Overall: normal bowel sounds 08/27/2016 None Full Exam - General Abdomen abdominal exam Overall: soft 08/27/2016 None Full Exam - General Ears/Nose/Throat otoscopic exam Overall: tympanic membranes clear 08/27/2016 None Full Exam - General Ears/Nose/Throat internal nose Drainage: clear 08/27/2016 None Full Exam - General Ears/Nose/Throat oral cavity/pharynx/larynx Oropharynx: erythema 08/27/2016 None Full Exam - General Constitutional general appearance Overall: well nourished 04/23/2016 None Full Exam - General Constitutional general appearance Overall: well developed 04/23/2016 None Full Exam - General Constitutional general appearance Overall: in no acute distress 04/23/2016 None Full Exam - General Respiratory auscultation Overall: breath sounds clear bilater ally 04/23/2016 None Full Exam - General Cardiovascular auscultation of heart Overall: regular rate 04/23/2016 None Full Exam - General Cardiovascular auscultation of heart Overall: normal heart sounds 04/23/2016 None Full Exam - General Abdomen abdominal exam Overall: soft 04/23/2016 None Full Exam - General Abdomen abdominal exam Overall: no masses 04/23/2016 None Full Exam - General Abdomen abdominal exam Overall: normal bowel sounds 04/23/2016 None Full Exam - General Integument inspection of skin Overall: no rash, lesions 04/23/2016 None Full Exam - General Abdomen abdominal exam Suprapubic: tender to palpation 04/23/2016 None Full Exam - General Abdomen abdominal exam Suprapubic: no guarding 04/23/2016 None Full Exam - General Constitutional general appearance Overall: well nourished 04/17/2016 None Full Exam - General Constitutional general appearance Overall: well developed 04/17/2016 None Full Exam - General Constitutional general appearance Overall: in no acute distress 04/17/2016 None Full Exam - General Respiratory respiratory effort/rhythm Overall: no retractions 04/17/2016 None Full Exam - General Respiratory respiratory effort/rhythm Overall: normal rate 04/17/2016 None Full Exam - General Cardiovascular extremities Overall: no clubbing 04/17/2016 None Full Exam - General Cardiovascular extremities Overall: No edema 04/17/2016 None Full Exam - General Cardiovascular extremities Overall: No cyanosis 04/17/2016 None Full Exam - General Integument inspection of skin Location left leg 04/17/2016 1/2 inch linear superficial abrasion. s cant yellowish drainage. mild erythema and inflammation surrounding. Full Exam - General Neurologic mental status Overall: alert 6 None Full Exam - General Neurologic mental status Overall: oriented 04/17/2016 None Full Exam - General Constitutional general appearance Overall: well nourished 03/12/2016 None Full Exam - General Constitutional general appearance Overall: well developed 03/12/2016 None Full Exam - General Constitutional general appearance Overall: in no acute distress 03/12/2016 None Full Exam - General Neurologic mental status Overall: alert 6 None Full Exam - General Neurologic mental status Overall: oriented 03/12/2016 None Full Exam - General Psychiatric mood and affect Overall: normal mood and affect 03/12/2016 None Full Exam - General Respiratory auscultation Overall: breath sounds clear bilater ally 03/12/2016 None Full Exam - General Cardiovascular auscultation of heart Overall: regular rate 03/12/2016 None Full Exam - General Cardiovascular auscultation of heart Overall: normal heart sounds 03/12/2016 None Full Exam - General Cardiovascular auscultation of heart Overall: no murmurs 03/12/2016 None Full Exam - General Cardiovascular extremities Overall: no clubbing 03/12/2016 None Full Exam - General Cardiovascular extremities Overall: No edema 03/12/2016 None Full Exam - General Cardiovascular extremities Overall: No cyanosis 03/12/2016 None Full Exam - General Constitutional general appearance Overall: well nourished 11/10/2015 None Full Exam - General Constitutional general appearance Overall: well developed 11/10/2015 None Full Exam - General Constitutional general appearance Overall: in no acute distress 11/10/2015 appear tired and not to f eel well Full Exam - General Ears/Nose/Throat otoscopic exam Overall: external auditory canals clear 11/10/2015 None Full Exam - General Ears/Nose/Throat otoscopic exam Overall: tympanic membranes clear 11/10/2015 None Full Exam - General Ears/Nose/Throat internal nose Overall: bilateral nasal cavities clear 11/10/2015 None Full Exam - General Ears/Nose/Throat oral cavity/pharynx/larynx Left tonsil: 2+ size 11/10/2015 None Full Exam - General Ears/Nose/Throat oral cavity/pharynx/larynx Left tonsil: enlarged 11/10/2015 None Full Exam - General Ears/Nose/Throat oral cavity/pharynx/larynx Left tonsil: erythematous 11/10/2015 None Full Exam - General Ears/Nose/Throat oral cavity/pharynx/larynx Right tonsil: enlarged 11/10/2015 None Full Exam - General Ears/Nose/Throat oral cavity/pharynx/larynx Right tonsil: exudate 11/10/2015 None Full Exam - General Ears/Nose/Throat oral cavity/pharynx/larynx Right tonsil: erythematous 11/10/2015 None Full Exam - General Ears/Nose/Throat oral cavity/pharynx/larynx Right tonsil: 3+ size 11/10/2015 None Full Exam - General Respiratory auscultation Overall: breath sounds clear bilater ally 11/10/2015 None Full Exam - General Cardiovascular auscultation of heart Overall: regular rate 11/10/2015 None Full Exam - General Cardiovascular auscultation of heart Overall: normal heart sounds 11/10/2015 None Full Exam - General Cardiovascular auscultation of heart Overall: no murmurs 11/10/2015 None Full Exam - General Neurologic mental status Overall: alert 6 None Full Exam - General Neurologic mental status Overall: oriented 11/10/2015 None Full Exam - General Constitutional general appearance Overall: well nourished 11/09/2015 None Full Exam - General Constitutional general appearance Overall: well developed 11/09/2015 None Full Exam - General Constitutional general appearance Overall: in no acute distress 11/09/2015 None Full Exam - General Eyes conjunctiva/eyelids Overall: conjunctiva clear 11/09/2015 None Full Exam - General Eyes conjunctiva/eyelids Overall: eyelids normal 11/09/2015 None Full Exam - General Ears/Nose/Throat external ear Overall: normal appearance 11/09/2015 None Full Exam - General Ears/Nose/Throat external nose Overall: benign appearance 11/09/2015 None Full Exam - General Ears/Nose/Throat otoscopic exam Overall: external auditory canals clear 11/09/2015 None Full Exam - General Ears/Nose/Throat otoscopic exam Overall: tympanic membranes clear 11/09/2015 None Full Exam - General Ears/Nose/Throat internal nose Overall: bilateral nasal cavities clear 11/09/2015 None Full Exam - General Ears/Nose/Throat internal nose Overall: no drainage 11/09/2015 None Full Exam - General Ears/Nose/Throat lips/teeth/gingiva Overall: benign lips 11/09/2015 None Full Exam - General Ears/Nose/Throat lips/teeth/gingiva Overall: normal dentition 11/09/2015 None Full Exam - General Ears/Nose/Throat oral cavity/pharynx/larynx Overall: oral mucosa clear 11/09/2015 None Full Exam - General Ears/Nose/Throat oral cavity/pharynx/larynx Left tonsil: 2+ size 11/09/2015 None Full Exam - General Ears/Nose/Throat oral cavity/pharynx/larynx Left tonsil: erythematous 11/09/2015 None Full Exam - General Ears/Nose/Throat oral cavity/pharynx/larynx Right tonsil: 2+ size 11/09/2015 None Full Exam - General Ears/Nose/Throat oral cavity/pharynx/larynx Right tonsil: erythematous 11/09/2015 None Full Exam - General Ears/Nose/Throat oral cavity/pharynx/larynx Right tonsil: exudate 11/09/2015 None Full Exam - General Respiratory auscultation Overall: breath sounds clear bilater ally 11/09/2015 None Full Exam - General Respiratory respiratory effort/rhythm Overall: no retractions 11/09/2015 None Full Exam - General Respiratory respiratory effort/rhythm Overall: normal rate 11/09/2015 None Full Exam - General Cardiovascular auscultation of heart Overall: regular rate 11/09/2015 None Full Exam - General Cardiovascular auscultation of heart Overall: normal heart sounds 11/09/2015 None Full Exam - General Lymphatic neck nodes Overall: shotty lymphadenopathy 11/09/2015 None Full Exam - General Integument inspection of skin Overall: no rash, lesions 11/09/2015 None Full Exam - General Neurologic mental status Overall: alert 6 None Full Exam - General Neurologic mental status Overall: oriented 11/09/2015 None Full Exam - General Constitutional general appearance Overall: well nourished 10/10/2015 None Full Exam - General Constitutional general appearance Overall: well developed 10/10/2015 None Full Exam - General Constitutional general appearance Overall: in no acute distress 10/10/2015 None Full Exam - General Neurologic mental status Overall: alert 6 None Full Exam - General Neurologic mental status Overall: oriented 10/10/2015 None Full Exam - General Psychiatric mood and affect Overall: normal mood and affect 10/10/2015 None Full Exam - General Musculoskeletal gait and station Overall: normal gait 10/10/2015 None Full Exam - General Musculoskeletal gait and station Overall: normal station 10/10/2015 None Full Exam - General Musculoskeletal spine, ribs and pelvis ROM - right hip: pain with flexion 10/10/2015 None Full Exam - General Musculoskeletal spine, ribs and pelvis ROM - right hip: pain with extension 10/10/2015 None Full Exam - General Musculoskeletal spine, ribs and pelvis ROM - left hip: pain with flexion 10/10/2015 None Full Exam - General Musculoskeletal spine, ribs and pelvis ROM - left hip: pain with extension 10/10/2015 None Full Exam - General Neck inspection of neck Swelling: right 10/10/19 16 lateral neck Full Exam - General Neck inspection of neck Swelling: tender 016 None Full Exam - General Constitutional general appearance Overall: well nourished 10/02/2015 None Full Exam - General Constitutional general appearance Overall: well developed 10/02/2015 None Full Exam - General Constitutional general appearance Overall: in no acute distress 10/02/2015 None Full Exam - General Ears/Nose/Throat external ear Overall: normal appearance 10/02/2015 None Full Exam - General Eyes conjunctiva/eyelids Overall: conjunctiva clear 10/02/2015 None Full Exam - General Eyes conjunctiva/eyelids Overall: eyelids normal 10/02/2015 None Full Exam - General Eyes pupils and irises Overall: pupils equal, round, reacti ve to light and accomodation 10/02/2015 None Full Exam - General Ears/Nose/Throat external nose Overall: benign appearance 10/02/2015 None Full Exam - General Ears/Nose/Throat otoscopic exam Overall: external auditory canals clear 10/02/2015 None Full Exam - General Ears/Nose/Throat otoscopic exam Overall: tympanic membranes clear 10/02/2015 None Full Exam - General Ears/Nose/Throat internal nose Overall: bilateral nasal cavities clear 10/02/2015 None Full Exam - General Ears/Nose/Throat internal nose Overall: no drainage 10/02/2015 None Full Exam - General Ears/Nose/Throat lips/teeth/gingiva Overall: benign lips 10/02/2015 None Full Exam - General Ears/Nose/Throat oral cavity/pharynx/larynx Overall: oral mucosa clear 10/02/2015 None Full Exam - General Ears/Nose/Throat oral cavity/pharynx/larynx Overall: oropharyngeal mucosa clear 10/02/2015 None Full Exam - General Respiratory auscultation Overall: breath sounds clear bilater ally 10/02/2015 None Full Exam - General Cardiovascular auscultation of heart Overall: regular rate 10/02/2015 None Full Exam - General Cardiovascular auscultation of heart Overall: normal heart sounds 10/02/2015 None Full Exam - General Neck thyroid Overall: normal size 04/2016 None Full Exam - General Neck thyroid Overall: normal consistency 10/02/2015 None Full Exam - General Neck inspection of neck Overall: normal size 10/02/2015 None Full Exam - General Neck inspection of neck Overall: normal appearance 10/02/2015 None Full Exam - General Neck inspection of neck Masses: right 10/02/2015 None Full Exam - General Neck inspection of neck Masses: tender 6 None Full Exam - General Neck inspection of neck Masses: soft 10/02/2015 None Full Exam - General Lymphatic neck nodes Left anterior cervical chain: a norm al exam 10/02/2015 None Full Exam - General Lymphatic neck nodes Left posterior cervical chain: a nor mal exam 10/02/2015 None Full Exam - General Lymphatic neck nodes Right anterior cervical chain: a nor mal exam 10/02/2015 None Full Exam - General Lymphatic neck nodes Right posterior cervical chain: numb er of palpable nodes: 1 10/02/2015 None Full Exam - General Lymphatic neck nodes Right posterior cervical chain: tend er 10/02/2015 None Full Exam - General Integument inspection of skin Overall: no rash, lesions 10/02/2015 None Full Exam - General Neurologic mental status Overall: alert 6 None Full Exam - General Neurologic mental status Overall: oriented 10/02/2015 None Full Exam - General Psychiatric mood and affect Overall: normal mood and affect 10/02/2015 None Full Exam - General Constitutional general appearance Overall: well nourished 07/10/2015 None Full Exam - General Constitutional general appearance Overall: well developed 07/10/2015 None Full Exam - General Constitutional general appearance Overall: in no acute distress 07/10/2015 None Full Exam - General Neurologic mental status Overall: alert 6 None Full Exam - General Neurologic mental status Overall: oriented 07/10/2015 None Full Exam - General Psychiatric mood and affect Overall: normal mood and affect 07/10/2015 None Full Exam - General Respiratory auscultation Overall: breath sounds clear bilater ally 07/10/2015 None Full Exam - General Cardiovascular auscultation of heart Overall: regular rate 07/10/2015 None Full Exam - General Cardiovascular auscultation of heart Overall: normal heart sounds 07/10/2015 None Full Exam - General Cardiovascular auscultation of heart S3 (ventricular gallop): present 07/10/2015 None Full Exam - General Integument inspection of skin Location right arm 06/27/2015 former PICC-line site of upper arm has 3 mm scaring with slight palpable thickening. No inflammation or erythema surrounding site. Slight tenderness with palpation. Full Exam - General Constitutional general appearance Overall: well nourished 06/27/2015 None Full Exam - General Constitutional general appearance Overall: well developed 06/27/2015 None Full Exam - General Constitutional general appearance Overall: in no acute distress 06/27/2015 None Full Exam - General Ears/Nose/Throat otoscopic exam Right tympanic membrane: air- fluid level 06/27/2015 None Full Exam - General Ears/Nose/Throat otoscopic exam Left tympanic membrane: a normal exam 06/27/2015 None Full Exam - General Ears/Nose/Throat oral cavity/pharynx/larynx Overall: oral mucosa clear 06/27/2015 None Full Exam - General Lymphatic neck nodes Overall: anterior cervical chain stevie ign 06/27/2015 None Full Exam - General Lymphatic neck nodes Overall: posterior cervical chain be nign 06/27/2015 None Full Exam - General Psychiatric mood and affect Overall: normal mood and affect 06/27/2015 None Full Exam - General Respiratory auscultation Overall: breath sounds clear bilater ally 06/27/2015 None Full Exam - General Cardiovascular auscultation of heart Overall: regular rate 06/27/2015 None Full Exam - General Cardiovascular auscultation of heart Overall: normal heart sounds 06/27/2015 None Full Exam - General Cardiovascular auscultation of heart Overall: no murmurs 06/27/2015 None Full Exam - General Constitutional general appearance Overall: well nourished 06/08/2015 None Full Exam - General Constitutional general appearance Overall: well developed 06/08/2015 None Full Exam - General Constitutional general appearance Overall: in no acute distress 06/08/2015 None Full Exam - General Neurologic mental status Overall: alert 5 None Full Exam - General Neurologic mental status Overall: oriented 06/08/2015 None Full Exam - General Psychiatric mood and affect Overall: normal mood and affect 06/08/2015 None Full Exam - General Constitutional general appearance Overall: well nourished 05/24/2015 None Full Exam - General Constitutional general appearance Overall: well developed 05/24/2015 None Full Exam - General Constitutional general appearance Overall: in no acute distress 05/24/2015 None Full Exam - General Cardiovascular auscultation of heart Overall: regular rate 05/24/2015 None Full Exam - General Cardiovascular auscultation of heart Overall: no murmurs 05/24/2015 None Full Exam - General Cardiovascular auscultation of heart Overall: normal heart sounds 05/24/2015 None Full Exam - General Ears/Nose/Throat otoscopic exam Overall: tympanic membranes clear 05/24/2015 None Full Exam - General Ears/Nose/Throat otoscopic exam Left tympanic membrane: air- fluid level 05/24/2015 None Full Exam - General Ears/Nose/Throat otoscopic exam Right tympanic membrane: air- fluid level 05/24/2015 None Full Exam - General Ears/Nose/Throat oral cavity/pharynx/larynx Overall: oral mucosa clear 05/24/2015 None Full Exam - General Respiratory auscultation Overall: breath sounds clear bilater ally 05/24/2015 None Full Exam - General Psychiatric mood and affect Overall: normal mood and affect 05/24/2015 None Full Exam - General Abdomen abdominal exam Right lower quadrant: tender to palp ation 05/24/2015 None Full Exam - General Abdomen abdominal exam Left lower quadrant: tender to palpa tion 05/24/2015 None Full Exam - General Lymphatic axilla/arm nodes Right axillary: tender 05/24/2015 with palpation; no lymph node enlargement upon exam Full Exam - General Lymphatic neck nodes Right anterior cervical chain: numbe r of palpable nodes: 1 05/24/2015 None Full Exam - General Lymphatic neck nodes Right anterior cervical chain: tende r 05/24/2015 None Full Exam - General Lymphatic neck nodes Right anterior cervical chain: size (cm): 2 05/24/2015 None Full Exam - General Cardiovascular extremities Edema present: bilateral 05/24/2015 None Full Exam - General Cardiovascular extremities Edema present: severity 1+ - 4+: 1+ 05/24/2015 None Full Exam - General Neurologic mental status Overall: alert 5 None Full Exam - General Neurologic mental status Overall: oriented 05/24/2015 None Full Exam - General Musculoskeletal gait and station Overall: normal gait 05/24/2015 None Full Exam - General Musculoskeletal gait and station Overall: normal station 05/24/2015 None Procedures Procedure Codes Date PT CPT-4: 5511610 03/08/2019 VIRUS INOCULATION TI SSUE CPT-4: 51572 03/08/2019 AEROBIC WOUND CULTUR E & STN CPT-4: 55274 03/08/2019 ROUTINE VENIPUNCTURE CPT-4: 87417 02/17/2019 PT CPT-4: 0572364 02/17/2019 URINE CULTURE/ COLON Y COUNT CPT-4: 19125 02/08/2019 ROUTINE VENIPUNCTURE CPT-4: 53138 01/19/2019 PROTHROMBIN TIME CPT-4: 34957 01/19/2019 COMPLETE CBC W/AUTO DIFF WBC CPT-4: 32464 01/19/2019 ANTISTREPTOLYSIN O T ITER CPT-4: 21475 01/19/2019 HEPATIC FUNCTION PANEL CPT-4: 85178 01/19/2019 MYCOPLASMA ANTIBODY, IFA CPT-4: 05758J9 01/19/2019 RESPIRATORY CULTURE & STAIN CPT-4: 69558 01/19/2019 STREP A ASSAY W/OPTIC CPT-4: 54870 01/19/2019 THER/PROPH/DIAG INJ SC/IM CPT-4: 51129 01/04/2019 TRIAMCINOLONE ACET I NJ NOS CPT-4: J3301 01/04/2019 ROUTINE VENIPUNCTURE CPT-4: 61539 12/18/2018 COMPLETE CBC W/AUTO DIFF WBC CPT-4: 84989 12/18/2018 COMPREHEN METABOLIC PANEL CPT-4: 74124 12/18/2018 HYDRATION IV INFUSIO N INIT CPT-4: 79001 12/16/2018 STREP A ASSAY W/OPTIC CPT-4: 97383 12/02/2018 ROUTINE VENIPUNCTURE CPT-4: 17533 11/30/2018 PT CPT-4: 3137399 11/30/2018 CEFTRIAXONE SODIUM I NJECTION CPT-4: J0696 11/30/2018 THER/PROPH/DIAG INJ SC/IM CPT-4: 00791 11/30/2018 URINE CULTURE/ COLON Y COUNT CPT-4: 75013 11/20/2018 URINALYSIS NONAUTO W /O SCOPE CPT-4: 62582 11/20/2018 CEFTRIAXONE SODIUM I NJECTION CPT-4: J0696 11/12/2018 THER/PROPH/DIAG INJ SC/IM CPT-4: 14422 11/12/2018 STREP A ASSAY W/OPTIC CPT-4: 99574 11/11/2018 CEFTRIAXONE SODIUM I NJECTION CPT-4: J0696 11/11/2018 THER/PROPH/DIAG INJ SC/IM CPT-4: 13927 11/11/2018 ROUTINE VENIPUNCTURE CPT-4: 34473 11/11/2018 ANTISTREPTOLYSIN O T ITER CPT-4: 52243 11/11/2018 COMPLETE CBC W/AUTO DIFF WBC CPT-4: 13194 11/11/2018 ROUTINE VENIPUNCTURE CPT-4: 53506 10/27/2018 PT CPT-4: 0728937 10/27/2018 THER/PROPH/DIAG INJ SC/IM CPT-4: 89410 10/09/2018 TRIAMCINOLONE ACET I NJ NOS CPT-4: J3301 10/09/2018 CEFTRIAXONE SODIUM I NJECTION CPT-4: J0696 10/08/2018 THER/PROPH/DIAG INJ SC/IM CPT-4: 46307 10/08/2018 CEFTRIAXONE SODIUM I NJECTION CPT-4: J0696 10/07/2018 THER/PROPH/DIAG INJ SC/IM CPT-4: 47495 10/07/2018 ROUTINE VENIPUNCTURE CPT-4: 34579 09/25/2018 COMPREHEN METABOLIC PANEL CPT-4: 21010 09/25/2018 COMPLETE CBC W/AUTO DIFF WBC CPT-4: 34680 09/25/2018 PT CPT-4: 7132903 09/25/2018 URINE CULTURE/ COLON Y COUNT CPT-4: 60585 09/10/2018 URINALYSIS NONAUTO W /O SCOPE CPT-4: 00428 09/10/2018 CEFTRIAXONE SODIUM I NJECTION CPT-4: J0696 09/08/2018 THER/PROPH/DIAG INJ SC/IM CPT-4: 28815 09/08/2018 ROUTINE VENIPUNCTURE CPT-4: 78623 08/14/2018 PT CPT-4: 3211594 08/14/2018 CEFTRIAXONE SODIUM I NJECTION CPT-4: J0696 07/02/2018 THER/PROPH/DIAG INJ SC/IM CPT-4: 06317 07/02/2018 THER/PROPH/DIAG INJ SC/IM CPT-4: 69132 07/02/2018 TRIAMCINOLONE ACET I NJ NOS CPT-4: J3301 07/02/2018 ROUTINE VENIPUNCTURE CPT-4: 04292 06/22/2018 ANTISTREPTOLYSIN O T ITER CPT-4: 85148 06/22/2018 ROUTINE VENIPUNCTURE CPT-4: 31929 06/17/2018 PROTHROMBIN TIME CPT-4: 20830 06/17/2018 URINE CULTURE/ COLON Y COUNT CPT-4: 49211 06/17/2018 CEFTRIAXONE SODIUM I NJECTION CPT-4: J0696 05/12/2018 THER/PROPH/DIAG INJ SC/IM CPT-4: 82647 05/12/2018 PROTHROMBIN TIME CPT-4: 79716 05/11/2018 CEFTRIAXONE SODIUM I NJECTION CPT-4: J0696 05/11/2018 THER/PROPH/DIAG INJ SC/IM CPT-4: 12815 05/11/2018 ROUTINE VENIPUNCTURE CPT-4: 97963 04/30/2018 PROTHROMBIN TIME CPT-4: 94038 04/30/2018 THER/PROPH/DIAG INJ SC/IM CPT-4: 61744 04/02/2018 TRIAMCINOLONE ACET I NJ NOS CPT-4: J3301 04/02/2018 IIV4 VACCINE 3 YRS+ IM AND UP CPT-4: 08055 03/24/2018 IMMUNIZATION ADMIN CPT- 4: 88348 03/24/2018 ROUTINE VENIPUNCTURE CPT-4: 46122 03/24/2018 PT CPT-4: 2433854 03/24/2018 PROTHROMBIN TIME CPT-4: 60475 02/24/2018 ROUTINE VENIPUNCTURE CPT-4: 94147 02/24/2018 ROUTINE VENIPUNCTURE CPT-4: 98107 02/05/2018 PROTHROMBIN TIME CPT-4: 67397 02/05/2018 URINE CULTURE/ COLON Y COUNT CPT-4: 95943 02/05/2018 CEFTRIAXONE SODIUM I NJECTION CPT-4: J0696 01/29/2018 THER/PROPH/DIAG INJ SC/IM CPT-4: 19734 01/29/2018 CEFTRIAXONE SODIUM I NJECTION CPT-4: J0696 01/28/2018 THER/PROPH/DIAG INJ SC/IM CPT-4: 67615 01/28/2018 URINALYSIS NONAUTO W /O SCOPE CPT-4: 12434 01/26/2018 URINE CULTURE/ COLON Y COUNT CPT-4: 28647 01/26/2018 ROUTINE VENIPUNCTURE CPT-4: 05207 01/01/2018 PROTHROMBIN TIME CPT-4: 86828 01/01/2018 THER/PROPH/DIAG INJ SC/IM CPT-4: 50327 12/25/2017 TRIAMCINOLONE ACET I NJ NOS CPT-4: J3301 12/25/2017 DEXAMETHASONE SODIUM PHOS CPT-4: J1100 12/25/2017 STREP A ASSAY W/OPTIC CPT-4: 43856 12/11/2017 CEFTRIAXONE SODIUM I NJECTION CPT-4: J0696 12/11/2017 THER/PROPH/DIAG INJ SC/IM CPT-4: 66969 12/11/2017 ROUTINE VENIPUNCTURE CPT-4: 78955 12/01/2017 ANTISTREPTOLYSIN O T ITER CPT-4: 43541 12/01/2017 PROTHROMBIN TIME CPT-4: 47984 12/01/2017 VITAMIN D TOTAL (25 HYDROXY) CPT-4: 43768 12/01/2017 VITAMIN B-12 CPT-4: 18738 12/01/2017 SPECIMEN HANDLING OF [facility] CPT-4: 35521 11/05/2017 ROUTINE VENIPUNCTURE CPT-4: 06888 10/14/2017 ANTISTREPTOLYSIN O T ITER CPT-4: 23300 10/14/2017 ROUTINE VENIPUNCTURE CPT-4: 80777 10/06/2017 PROTHROMBIN TIME CPT-4: 54678 10/06/2017 THER/PROPH/DIAG INJ SC/IM CPT-4: 85688 10/06/2017 TRIAMCINOLONE ACET I NJ NOS CPT-4: J3301 10/06/2017 ROUTINE VENIPUNCTURE CPT-4: 56956 10/01/2017 VITAMIN B-12 CPT-4: 37939 10/01/2017 FOLIC ACID CPT-4: 11805 10/01/2017 ASSAY THYROID STIM H ORMONE CPT-4: 48361 10/01/2017 ASSAY OF FREE THYROXINE CPT-4: 74588 10/01/2017 ASSAY TRIIODOTHYRONI NE (T3) CPT-4: 25775 10/01/2017 ASSAY OF BLOOD/URIC ACID CPT-4: 74862 10/01/2017 RHEUMATOID FACTOR QUANT CPT-4: 50217 10/01/2017 RBC SED RATE AUTOMATED CPT-4: 91280 10/01/2017 ANTISTREPTOLYSIN O T ITER CPT-4: 39776 10/01/2017 ASSAY OF IRON CPT-4: 98577 10/01/2017 ASSAY OF FERRITIN CPT-4: 75801 10/01/2017 ANTINUCLEAR ANTIBODIES CPT-4: 06650 10/01/2017 A1C HPLC CPT-4: 29468 10/01/2017 VITAMIN D TOTAL (25 HYDROXY) CPT-4: 49123 10/01/2017 THER/PROPH/DIAG INJ SC/IM CPT-4: 35164 09/05/2017 TRIAMCINOLONE ACET I NJ NOS CPT-4: J3301 09/05/2017 URINALYSIS NONAUTO W /O SCOPE CPT-4: 81172 09/05/2017 URINE CULTURE/ COLON Y COUNT CPT-4: 02001 09/05/2017 ROUTINE VENIPUNCTURE CPT-4: 14812 09/04/2017 PROTHROMBIN TIME CPT-4: 17279 09/04/2017 ROUTINE VENIPUNCTURE CPT-4: 25619 08/07/2017 COMPLETE CBC W/AUTO DIFF WBC CPT-4: 89587 08/07/2017 COMPREHEN METABOLIC PANEL CPT-4: 93880 08/07/2017 PROTHROMBIN TIME CPT-4: 24537 08/07/2017 INFLUENZA ASSAY W/OPTIC CPT-4: 59297 07/15/2017 ROUTINE VENIPUNCTURE CPT-4: 09365 07/15/2017 COMPREHEN METABOLIC PANEL CPT-4: 87207 07/15/2017 COMPLETE CBC W/AUTO DIFF WBC CPT-4: 93440 07/15/2017 CEFTRIAXONE SODIUM I NJECTION CPT-4: J0696 07/04/2017 THER/PROPH/DIAG INJ SC/IM CPT-4: 07257 07/04/2017 THER/PROPH/DIAG INJ SC/IM CPT-4: 09172 07/04/2017 TRIAMCINOLONE ACET I NJ NOS CPT-4: J3301 07/04/2017 CEFTRIAXONE SODIUM I NJECTION CPT-4: J0696 07/02/2017 THER/PROPH/DIAG INJ SC/IM CPT-4: 40711 07/02/2017 CEFTRIAXONE SODIUM I NJECTION CPT-4: J0696 07/01/2017 THER/PROPH/DIAG INJ SC/IM CPT-4: 48786 07/01/2017 ROUTINE VENIPUNCTURE CPT-4: 93877 06/19/2017 PROTHROMBIN TIME CPT-4: 51824 06/19/2017 THER/PROPH/DIAG INJ SC/IM CPT-4: 25389 04/01/2017 TRIAMCINOLONE ACET I NJ NOS CPT-4: J3301 04/01/2017 ROUTINE VENIPUNCTURE CPT-4: 21055 02/10/2017 PROTHROMBIN TIME CPT-4: 01712 02/10/2017 URINALYSIS NONAUTO W /O SCOPE CPT-4: 05065 02/10/2017 URINE CULTURE/ COLON Y COUNT CPT-4: 32928 02/10/2017 ROUTINE VENIPUNCTURE CPT-4: 32731 02/05/2017 PROTHROMBIN TIME CPT-4: 28342 02/05/2017 THROAT CULTURE CPT-4: 24936 02/03/2017 STREP A ASSAY W/OPTIC CPT-4: 94094 01/13/2017 ROUTINE VENIPUNCTURE CPT-4: 67792 12/18/2016 PROTHROMBIN TIME CPT-4: 19352 12/18/2016 URINE CULTURE/ COLON Y COUNT CPT-4: 37495 08/27/2016 ASSAY THYROID STIM H ORMONE CPT-4: 37365 08/27/2016 COMPREHEN METABOLIC PANEL CPT-4: 66105 08/27/2016 COMPLETE CBC W/AUTO DIFF WBC CPT-4: 46844 08/27/2016 PROTHROMBIN TIME CPT-4: 22272 08/27/2016 ROUTINE VENIPUNCTURE CPT-4: 06676 08/27/2016 ROUTINE VENIPUNCTURE CPT-4: 21877 05/24/2016 COMPREHEN METABOLIC PANEL CPT-4: 79863 05/24/2016 PROTHROMBIN TIME CPT-4: 85267 05/24/2016 URINALYSIS NONAUTO W /O SCOPE CPT-4: 97759 04/23/2016 URINE CULTURE/ COLON Y COUNT CPT-4: 24924 04/23/2016 PRESCRIP TRANSMIT A ERX SY CPT-4: G8553 04/23/2016 AEROBIC WOUND CULTUR E & STN CPT-4: 55403 04/17/2016 ROUTINE VENIPUNCTURE CPT-4: 84722 04/11/2016 PROTHROMBIN TIME CPT-4: 06171 04/11/2016 ROUTINE VENIPUNCTURE CPT-4: 98442 03/12/2016 COMPLETE CBC W/AUTO DIFF WBC CPT-4: 81608 03/12/2016 COMPREHEN METABOLIC PANEL CPT-4: 05768 03/12/2016 ASSAY THYROID STIM H ORMONE CPT-4: 77505 03/12/2016 PROTHROMBIN TIME CPT-4: 22963 03/12/2016 ROUTINE VENIPUNCTURE CPT-4: 70435 02/12/2016 PROTHROMBIN TIME CPT-4: 36354 02/12/2016 ROUTINE VENIPUNCTURE CPT-4: 26574 02/01/2016 PROTHROMBIN TIME CPT-4: 39160 02/01/2016 ROUTINE VENIPUNCTURE CPT-4: 59839 01/22/2016 PROTHROMBIN TIME CPT-4: 10506 01/22/2016 ROUTINE VENIPUNCTURE CPT-4: 26230 11/10/2015 PROTHROMBIN TIME CPT-4: 19462 11/10/2015 CEFTRIAXONE SODIUM I NJECTION CPT-4: J0696 11/10/2015 THER/PROPH/DIAG INJ SC/IM CPT-4: 08609 11/10/2015 EB VIRUS VCA G/M + E BNA + EA CPT-4: 20823|28129 x 2|31820 016 THROAT CULTURE CPT-4: 05186 11/09/2015 STREP A ASSAY W/OPTIC CPT-4: 75477 11/09/2015 STREP A ASSAY W/OPTIC CPT-4: 48626 10/02/2015 ROUTINE VENIPUNCTURE CPT-4: 59482 09/29/2015 COMPLETE CBC W/AUTO DIFF WBC CPT-4: 83417 09/29/2015 ASSAY OF IRON CPT-4: 82201 09/29/2015 PROTHROMBIN TIME CPT-4: 91685 09/29/2015 ROUTINE VENIPUNCTURE CPT-4: 26150 07/27/2015 PROTHROMBIN TIME CPT-4: 70513 07/27/2015 URINALYSIS NONAUTO W /O SCOPE CPT-4: 11113 06/30/2015 URINE CULTURE/ COLON Y COUNT CPT-4: 45267 06/30/2015 ROUTINE VENIPUNCTURE CPT-4: 92220 06/21/2015 PROTHROMBIN TIME CPT-4: 60940 06/21/2015 URINE CULTURE/ COLON Y COUNT CPT-4: 78032 05/31/2015 ROUTINE VENIPUNCTURE CPT-4: 12731 05/24/2015 PROTHROMBIN TIME CPT-4: 80112 05/24/2015 URINALYSIS NONAUTO W /O SCOPE CPT-4: 68855 05/24/2015 Vital Signs Date Vital 03/08/2019 Blood Pressure 1: 110/78 Code: 8480-6 Heart Rate 1: 77 bpm SpO2: 97% Temperature: 35.8 (C ) / 96.4 (F) Weight: 183 lbs 02/17/2019 Blood Pressure 1: 124/76 Code: 8480-6 Heart Rate 1: 76 bpm Respiratory Rate: 20 bpm Temperature: 36.7 (C) / 98.1 (F) Weight: 187 lbs 02/08/2019 Blood Pressure 1: 120/72 Code: 8480-6 Heart Rate 1: 68 bpm SpO2: 97% Temperature: 36.8 (C ) / 98.3 (F) Weight: 183 lbs 01/19/2019 Blood Pressure 1: 130/80 Code: 8480-6 Heart Rate 1: 87 bpm SpO2: 97% Temperature: 36.8 (C ) / 98.2 (F) Weight: 179 lbs 01/04/2019 Blood Pressure 1: 128/82 Code: 8480-6 Heart Rate 1: 72 bpm Respiratory Rate: 16 bpm SpO2: 97% Temperature: 36.8 (C ) / 98.2 (F) 12/16/2018 Blood Pressure 1: 90/64 Code: 8480-6 Heart Rate 1: 75 bpm Respiratory Rate: 18 bpm SpO2: 97% Temperature: 36.5 (C ) / 97.7 (F) 12/03/2018 Blood Pressure 1: 130/82 Code: 8480-6 Heart Rate 1: 79 bpm Respiratory Rate: 18 bpm SpO2: 97% Temperature: 36.7 (C ) / 98.1 (F) Weight: 179 lbs 12/02/2018 Blood Pressure 1: 126/90 Code: 8480-6 Heart Rate 1: 82 bpm Respiratory Rate: 18 bpm SpO2: 97% Temperature: 36.7 (C ) / 98.0 (F) Weight: 180 lbs 11/30/2018 Blood Pressure 1: 122/90 Code: 8480-6 Heart Rate 1: 85 bpm Respiratory Rate: 18 bpm SpO2: 98% Temperature: 36.7 (C ) / 98.0 (F) Weight: 180 lbs 11/11/2018 Blood Pressure 1: 126/84 Code: 8480-6 Heart Rate 1: 96 bpm SpO2: 95% Temperature: 36.9 (C ) / 98.4 (F) Weight: 178 lbs 10/08/2018 Blood Pressure 1: 122/86 Code: 8480-6 Heart Rate 1: 88 bpm Respiratory Rate: 18 bpm SpO2: 98% Temperature: 36.3 (C ) / 97.3 (F) Weight: 181 lbs 10/07/2018 Blood Pressure 1: 128/86 Code: 8480-6 Heart Rate 1: 82 bpm Respiratory Rate: 18 bpm SpO2: 96% Temperature: 36.6 (C ) / 97.8 (F) Weight: 181 lbs 09/25/2018 Blood Pressure 1: 120/80 Code: 8480-6 Heart Rate 1: 83 bpm Respiratory Rate: 18 bpm SpO2: 97% Temperature: 36.7 (C ) / 98.0 (F) Weight: 180 lbs 09/08/2018 Blood Pressure 1: 122/70 Code: 8480-6 BMI: 32.2 Code: 60941-3 Heart Rate 1: 88 bpm Height: 5'3" Respiratory Rate: 20 bpm SpO2: 96% Temperature: 36.8 (C ) / 98.2 (F) Weight: 182 lbs 07/23/2018 Blood Pressure 1: 132/80 Code: 8480-6 Heart Rate 1: 84 bpm Respiratory Rate: 20 bpm SpO2: 96% Temperature: 36.6 (C ) / 97.8 (F) Weight: 187 lbs 07/08/2018 Blood Pressure 1: 122/70 Code: 8480-6 BMI: 32.2 Code: 45490-0 Heart Rate 1: 88 bpm Height: 5'3" Respiratory Rate: 20 bpm Temperature: 36.6 (C ) / 97.8 (F) Weight: 182 lbs 07/02/2018 Blood Pressure 1: 124/68 Code: 8480-6 BMI: 32.8 Code: 18813-9 Heart Rate 1: 84 bpm Height: 5'3" Respiratory Rate: 20 bpm SpO2: 98% Temperature: 36.3 (C ) / 97.3 (F) Weight: 185 lbs 06/02/2018 Blood Pressure 1: 132/90 Code: 8480-6 Heart Rate 1: 84 bpm Respiratory Rate: 18 bpm SpO2: 97% Temperature: 36.6 (C ) / 97.9 (F) Weight: 180 lbs 05/11/2018 Blood Pressure 1: 124/80 Code: 8480-6 BMI: 31.7 Code: 22713-4 Heart Rate 1: 88 bpm Height: 5'3" Respiratory Rate: 20 bpm Temperature: 37.0 (C ) / 98.6 (F) Weight: 179 lbs 04/02/2018 Blood Pressure 1: 122/80 Code: 8480-6 Heart Rate 1: 78 bpm Respiratory Rate: 18 bpm SpO2: 97% Temperature: 36.2 (C ) / 97.1 (F) Weight: 181 lbs 8 oz 03/16/2018 Blood Pressure 1: 114/82 Code: 8480-6 BMI: 31.4 Code: 93561-9 Heart Rate 1: 76 bpm Height: 5'3" Respiratory Rate: 20 bpm Temperature: 37.0 (C ) / 98.6 (F) Weight: 177 lbs 02/16/2018 Blood Pressure 1: 114/72 Code: 8480-6 BMI: 31.7 Code: 55366-2 Heart Rate 1: 84 bpm Height: 5'3" Respiratory Rate: 20 bpm Temperature: 37.0 (C ) / 98.6 (F) Weight: 179 lbs 01/26/2018 Blood Pressure 1: 118/78 Code: 8480-6 BMI: 31.7 Code: 60206-0 Heart Rate 1: 80 bpm Height: 5'3" Respiratory Rate: 20 bpm SpO2: 98% Temperature: 36.4 (C ) / 97.6 (F) Weight: 179 lbs 01/01/2018 Blood Pressure 1: 11278 Code: 8480-6 Heart Rate 1: 86 bpm Height: 5'3" Respiratory Rate: 22 bpm SpO2: 98% Temperature: 36.6 (C ) / 97.8 (F) Weight: 12/25/2017 Blood Pressure 1: 136/78 Code: 8480-6 BMI: 31.5 Code: 57022-0 Heart Rate 1: 84 bpm Height: 5'3" Respiratory Rate: 22 bpm SpO2: 98% Temperature: 36.6 (C ) / 97.9 (F) Weight: 178 lbs 12/11/2017 Blood Pressure 1: 122/74 Code: 8480-6 BMI: 31.2 Code: 03835-5 Heart Rate 1: 86 bpm Height: 5'3" Respiratory Rate: 24 bpm SpO2: 98% Temperature: 35.9 (C ) / 96.6 (F) Weight: 176 lbs 11/05/2017 Blood Pressure 1: 126/82 Code: 8480-6 BMI: 31.5 Code: 53111-9 Heart Rate 1: 84 bpm Height: 5'3" Respiratory Rate: 20 bpm SpO2: 97% Temperature: 36.8 (C ) / 98.3 (F) Weight: 178 lbs 10/06/2017 Blood Pressure 1: 114/78 Code: 8480-6 BMI: 31.4 Code: 16665-6 Heart Rate 1: 80 bpm Height: 5'3" Respiratory Rate: 20 bpm Temperature: 36.9 (C ) / 98.4 (F) Weight: 177 lbs 10/01/2017 Blood Pressure 1: 122/70 Code: 8480-6 BMI: 31.5 Code: 01940-6 Heart Rate 1: 84 bpm Height: 5'3" Respiratory Rate: 20 bpm Temperature: 36.6 (C ) / 97.8 (F) Weight: 178 lbs 09/10/2017 Blood Pressure 1: 114/70 Code: 8480-6 Heart Rate 1: 80 bpm Height: 5'3" SpO2: 97% Temperature: 36.7 (C ) / 98.0 (F) 07/15/2017 Blood Pressure 1: 122/78 Code: 8480-6 Heart Rate 1: 84 bpm Respiratory Rate: 22 bpm SpO2: 92% Temperature: 36.2 (C ) / 97.1 (F) 07/01/2017 Blood Pressure 1: 132/78 Code: 8480-6 BMI: 32.1 Code: 27411-5 Heart Rate 1: 92 bpm Height: 5'3" Respiratory Rate: 20 bpm SpO2: 96% Temperature: 36.7 (C ) / 98.0 (F) Weight: 181 lbs 05/27/2017 Blood Pressure 1: 142/78 Code: 8480-6 Heart Rate 1: 90 bpm Height: 5'3" Respiratory Rate: 22 bpm SpO2: 98% Temperature: 36.1 (C ) / 97.0 (F) Weight: 05/20/2017 Blood Pressure 1: 122/76 Code: 8480-6 BMI: 31.2 Code: 08614-7 Heart Rate 1: 86 bpm Height: 5'3" Respiratory Rate: 20 bpm SpO2: 98% Temperature: 36.5 (C ) / 97.7 (F) Weight: 176 lbs 04/22/2017 Blood Pressure 1: 132/80 Code: 8480-6 BMI: 31.0 Code: 43388-9 Heart Rate 1: 84 bpm Height: 5'3" Respiratory Rate: 20 bpm Temperature: 36.8 (C ) / 98.2 (F) Weight: 175 lbs 04/01/2017 Blood Pressure 1: 124/70 Code: 8480-6 BMI: 30.8 Code: 23729-6 Heart Rate 1: 88 bpm Height: 5'3" Respiratory Rate: 20 bpm SpO2: 96% Temperature: 36.6 (C ) / 97.9 (F) Weight: 174 lbs 02/05/2017 Blood Pressure 1: 116/58 Code: 8480-6 Heart Rate 1: 96 bpm Height: 5'3" Respiratory Rate: 22 bpm SpO2: 99% Temperature: 36.7 (C ) / 98.1 (F) 01/13/2017 Blood Pressure 1: 136/78 Code: 8480-6 BMI: 30.3 Code: 12297-8 Heart Rate 1: 86 bpm Height: 5'3" Respiratory Rate: 18 bpm SpO2: 98% Temperature: 36.7 (C ) / 98.1 (F) Weight: 171 lbs 11/27/2016 Blood Pressure 1: 114/70 Code: 8480-6 BMI: 30.3 Code: 29322-5 Heart Rate 1: 76 bpm Height: 5'3" Respiratory Rate: 20 bpm SpO2: 96% Temperature: 36.7 (C ) / 98.0 (F) Weight: 171 lbs 08/27/2016 Blood Pressure 1: 126/70 Code: 8480-6 Heart Rate 1: 80 bpm Respiratory Rate: 20 bpm Temperature: 37.3 (C) / 99.2 (F) Weight: 172 lbs 07/08/2016 Blood Pressure 1: 116/70 Code: 8480-6 Heart Rate 1: 96 bpm SpO2: 98% 04/23/2016 Blood Pressure 1: 124/78 Code: 8480-6 Heart Rate 1: 88 bpm Respiratory Rate: 24 bpm SpO2: 97% Temperature: 36.1 (C ) / 96.9 (F) Weight: 170 lbs 04/17/2016 Blood Pressure 1: 122/78 Code: 8480-6 Heart Rate 1: 82 bpm Height: Respiratory Rate: 24 bpm SpO2: 96% Temperature: 36.8 (C ) / 98.3 (F) Weight: 03/12/2016 Blood Pressure 1: 122/78 Code: 8480-6 BMI: 31.0 Code: 34298-8 Heart Rate 1: 76 bpm Height: 5'3" Respiratory Rate: 20 bpm Temperature: 36.8 (C ) / 98.2 (F) Weight: 175 lbs 11/10/2015 Blood Pressure 1: 116/72 Code: 8480-6 BMI: 31.2 Code: 83491-9 Heart Rate 1: 76 bpm Height: 5'3" Respiratory Rate: 20 bpm Temperature: 37.2 (C ) / 98.9 (F) Weight: 176 lbs 11/09/2015 Blood Pressure 1: 122/78 Code: 8480-6 Heart Rate 1: 82 bpm Respiratory Rate: 20 bpm SpO2: 96% Temperature: 36.4 (C ) / 97.6 (F) Weight: 176 lbs 10/10/2015 BMI: 31.5 Code: 67154-9 Heart Rate 1: 72 bpm Height: 5'3" Respiratory Rate: 20 bpm Temperature: 36.6 (C ) / 97.8 (F) Weight: 178 lbs 10/02/2015 Blood Pressure 1: 124/78 Code: 8480-6 Heart Rate 1: 92 bpm Respiratory Rate: 22 bpm SpO2: 96% Temperature: 36.7 (C ) / 98.1 (F) Weight: 178 lbs 07/10/2015 Blood Pressure 1: 112/60 Code: 8480-6 BMI: 33.1 Code: 84791-4 Heart Rate 1: 92 bpm Height: 5'3" Respiratory Rate: 20 bpm Temperature: 36.9 (C ) / 98.4 (F) Weight: 187 lbs 06/27/2015 Blood Pressure 1: 106/62 Code: 8480-6 Heart Rate 1: 88 bpm Respiratory Rate: 22 bpm Temperature: 37.0 (C) / 98.6 (F) Weight: 190 lbs 06/08/2015 Blood Pressure 1: 112/78 Code: 8480-6 BMI: 33.1 Code: 57747-6 Heart Rate 1: 84 bpm Height: 5'3" Respiratory Rate: 20 bpm Temperature: 37.0 (C ) / 98.6 (F) Weight: 187 lbs 05/24/2015 Blood Pressure 1: 126/82 Code: 8480-6 BMI: 33.1 Code: 82006-6 Heart Rate 1: 92 bpm Height: 5'3" Respiratory Rate: 22 bpm Temperature: 37.1 (C ) / 98.8 (F) Weight: 187 lbs Functional Status No Functional Status data History of Present Illness Symptom Name Status Resu lt Effective Date Notes Location on both legs 02/17/2019 None Quality numbness 02/17/2019 None Quality tingling 02/17/2019 None Onset and Resolution g radual in onset 02/17/2019 None Exacerbating Factors s itting 02/17/2019 None Location in the right nare 02/17/2019 None Onset of Symptom 1 wee ks ago 02/17/2019 None Location on both sides 02/08/2019 None Quality acute 02/08/2019 None Location on the left 01/04/2019 None Quality sharp 01/04/2019 None Quality acute 01/04/2019 None Onset and Resolution s udden in onset 01/04/2019 None Onset of Symptom 1 day s ago 01/04/2019 None Location on the left 01/04/2019 None Quality thin pink drai nage 01/04/2019 None Quality acute 01/04/2019 Patient does notice an odor with it Onset of Symptom 8 og rs ago 12/02/2018 some what tender to touch Location on the left 11/30/2018 None Onset of Symptom 2 day s ago 11/30/2018 None Location diffusely 11/11/2018 None Quality aching 11/11/2018 None Quality acute 11/11/2018 Patient has recurrent strep Quality acute 11/11/2018 None Onset of Symptom 4 day s ago 11/11/2018 None Onset of Symptom 4 day s ago 11/11/2018 None Onset of Symptom 1 day s ago 10/07/2018 scratchy throat yesterday Onset of Symptom 1 day s ago 10/07/2018 None Onset of Symptom _ day s ago 09/25/2018 None Location on both sides 09/25/2018 None Onset of Symptom _ day s ago 09/25/2018 None Onset of Symptom _ day s ago 09/25/2018 None Onset of Symptom _ day s ago 09/25/2018 None Location diffusely 09/08/2018 None Quality aching 09/08/2018 None Quality acute 09/08/2018 None Onset and Resolution o ngoing 09/08/2018 None Onset of Symptom 2 day s ago 09/08/2018 None Quality acute 09/08/2018 None Onset of Symptom 2 day s ago 09/08/2018 None Quality burning 09/08/2018 None Location on the left 07/23/2018 None Quality acute 07/23/2018 None Location in the left 07/23/2018 None Quality pain 07/23/2018 None Quality purulent 07/23/2018 None Quality bloody 07/23/2018 None Onset of Symptom 2 day s ago 07/23/2018 None Onset of Symptom 2 day s ago 07/23/2018 None Location diffusely 07/08/2018 None Quality aching 07/08/2018 None Quality dull pain 07/08/2018 None Quality recurrent. 07/08/2018 Patient wants to discuss recurrent strep /ASO elevation. She has seen infectious disease and said she was just going to live with it Quality acute 07/02/2018 None Quality intermittent 07/02/2018 None Quality worsening 07/02/2018 None Onset and Resolution o ngoing 07/02/2018 None Location diffusely 07/02/2018 None Location on both sides 07/02/2018 None Quality acute 07/02/2018 None Quality aching 07/02/2018 None Onset and Resolution o ngoing 07/02/2018 None Location diffusely 07/02/2018 None Quality acute 07/02/2018 None Quality aching 07/02/2018 None Onset and Resolution o ngoing 07/02/2018 None sore throat Onset of Symptom 5 days ago 06/02/2018 None sinus pain Onset of Symptom 5 days ago 06/02/2018 None otalgia Location on the left 06/02/2018 None otalgia Onset of Symptom 5 days ago 06/02/2018 None otalgia Location on the left 05/11/2018 None otalgia Quality stabbing 05/11/2018 None jaw pain Location in the left angle 05/11/2018 None jaw pain Quality stabbing 05/11/2018 None otalgia Onset and Resolution ongoing 05/11/2018 None jaw pain Onset and Resolution ongoing 05/11/2018 None sinusitis Onset of Symptom 1 weeks ago 04/02/2018 None headache Location diffus sushil 03/16/2018 None headache Quality sharp 03/16/2018 None headache Quality stabbing 03/16/2018 None otalgia Location on the left 03/16/2018 None otalgia Quality throbbing 03/16/2018 None otalgia Onset of Symptom 1 days ago 03/16/2018 None headache Onset of Symptom 1 days ago 03/16/2018 None abdominal pain Location in the epigastric area 02/16/2018 None diarrhea Quality loose 02/16/2018 None gas and bloating Location in the suprapubic area 02/16/2018 None gas and bloating Quality acute 02/16/2018 None abdominal pain Quality a cute 02/16/2018 None abdominal pain Quality s harp 02/16/2018 None abdominal pain Quality s queezing 02/16/2018 None abdominal pain Quality s tabbing 02/16/2018 None diarrhea Onset of Symptom 1 weeks ago. 02/16/2018 Patient is still taking q uestran diarrhea Quality intermi ttent 02/16/2018 None otalgia Location on both sides 01/26/2018 None otalgia Quality acute 01/26/2018 None otalgia Onset and Resolution ongoing 01/26/2018 None otalgia Quality achy 01/26/2018 None otalgia Onset of Symptom 3 days ago 01/26/2018 None joint complaint Location bilateral knee pain and left elbow 01/26/2018 None joint complaint Quality acute 01/26/2018 None joint complaint Quality aching 01/26/2018 None joint complaint Quality burning 01/26/2018 None joint complaint Onset and Resolution ongoing 01/26/2018 None joint complaint Onset of Symptom 1-2 days ago 01/26/2018 None otalgia Quality acute 01/01/2018 None otalgia Quality intermit tent 01/01/2018 None otalgia Quality worsening 01/01/2018 None otalgia Onset and Resolution ongoing 01/01/2018 None otalgia Location on the left 01/01/2018 None otalgia Location on the left 12/25/2017 None otalgia Quality acute 12/25/2017 None otalgia Quality stable 12/25/2017 None otalgia Onset and Resolution ongoing 12/25/2017 None sore throat Location dif fusely 12/11/2017 None sore throat Quality acute 12/11/2017 None sore throat Quality achi ng 12/11/2017 None sore throat Quality burn ing 12/11/2017 None sore throat Onset and Resolution gradual in onset 12/11/2017 None sore throat Onset and Resolution ongoing 12/11/2017 None postnasal drip Quality a cute 12/11/2017 None postnasal drip Quality i ntermittent 12/11/2017 None postnasal drip Quality g reen 12/11/2017 None postnasal drip Onset and Resolution ongoing 12/11/2017 None postnasal drip Onset of Symptom 1-2 days ago 12/11/2017 None otalgia Location on both sides 12/11/2017 None otalgia Quality acute 12/11/2017 None otalgia Quality intermit tent 12/11/2017 None otalgia Quality worsening 12/11/2017 None otalgia Onset and Resolution ongoing 12/11/2017 None otalgia Onset of Symptom 1-2 days ago 12/11/2017 None sinus pain Location diff usely 12/11/2017 None sinus pain Quality acute 12/11/2017 None sinus pain Quality fulln ess 12/11/2017 None sinus pain Onset and Resolution ongoing 12/11/2017 None sinus pain Onset of Symptom 1-2 days ago 12/11/2017 None well woman exam (40-65 years) Pap Smear normal results 11/05/2017 None well woman exam (40-65 years) Pap Smear 3+ years ago 11/05/2017 None well woman exam (40-65 years) Contro l hysterectomy. 11/05/2017 Patient still has ovaries paresthesia Location on both feet 10/01/2017 None paresthesia Location on both hands 10/01/2017 None paresthesia Quality numb ness 10/01/2017 None paresthesia Quality ting ling 10/01/2017 None paresthesia Quality cold 10/01/2017 None paresthesia Onset and Resolution ongoing 10/01/2017 None paresthesia Quality wors ening 10/01/2017 None burn Infection worsening 09/10/2017 None burn Initial treatment a ntibiotic ointment 09/10/2017 None burn Location hand 09/10/2017 None cough Location in the th roat 07/15/2017 None cough Quality acute 07/15/2017 None cough Quality dry 07/15/2017 None cough Onset and Resolution ongoing 07/15/2017 None fatigue Quality acute 07/15/2017 None fatigue Quality intermit tent 07/15/2017 None fatigue Quality worsening 07/15/2017 None fatigue Onset and Resolution gradual in onset 07/15/2017 None fatigue Onset of Symptom 1-2 days ago 07/15/2017 None headache Location diffus suhsil 07/15/2017 None headache Quality acute 07/15/2017 None headache Quality aching 07/15/2017 None headache Onset and Resolution gradual in onset 07/15/2017 None headache Onset of Symptom 1-2 Days ago 07/15/2017 None myalgias Location diffus sushil 07/15/2017 None myalgias Quality acute 07/15/2017 None myalgias Quality aching 07/15/2017 None myalgias Quality burning 07/15/2017 None myalgias Onset and Resolution gradual in onset 07/15/2017 None myalgias Onset of Symptom 1-2 days ago 07/15/2017 None chest tightness Location diffusely 07/15/2017 None chest tightness Quality acute 07/15/2017 None chest tightness Quality intermittent 07/15/2017 None chest tightness Quality worsening 07/15/2017 None chest tightness Onset and Resolution ongoing 07/15/2017 None chest tightness Onset of Symptom 1-2 days ago 07/15/2017 None sore throat Onset of Symptom 2 days ago 07/01/2017 None sore throat Location dif fusely 07/01/2017 None otalgia Location on both sides 07/01/2017 None otalgia Quality dull 07/01/2017 None otalgia Quality acute 07/01/2017 None cough Location in the th roat 07/01/2017 None cough Quality hacking 07/01/2017 None cough Quality productive 07/01/2017 None cough Onset of Symptom 2 days ago 07/01/2017 None cough Location in the th roat 05/27/2017 None cough Quality acute 05/27/2017 None cough Quality dry 05/27/2017 None cough Quality hacking 05/27/2017 None cough Onset and Resolution ongoing 05/27/2017 None fatigue Quality acute 05/27/2017 None fatigue Quality worsening 05/27/2017 None fatigue Onset and Resolution gradual in onset 05/27/2017 None fatigue Onset of Symptom 1-2 days ago 05/27/2017 None cough Onset of Symptom 1 -2 days ago 05/27/2017 None headache Location diffus sushil 05/27/2017 None headache Quality acute 05/27/2017 None headache Quality aching 05/27/2017 None headache Onset and Resolution gradual in onset 05/27/2017 None headache Onset of Symptom 1-2 days ago 05/27/2017 None sinus congestion Quality acute 05/27/2017 None sinus congestion Quality fullness 05/27/2017 None sinus congestion Quality pain 05/27/2017 None sinus congestion Quality pressure 05/27/2017 None sinus congestion Quality worsening 05/27/2017 None sinus congestion Location on both sides 05/27/2017 None sinus congestion Onset of Symptom 1-2 days ago 05/27/2017 None chest congestion Quality acute 05/27/2017 None chest congestion Quality intermittent 05/27/2017 None chest congestion Quality painful 05/27/2017 None chest congestion Quality thick secretions 05/27/2017 None chest congestion Onset and Resolution ongoing 05/27/2017 None chest congestion Onset of Symptom 1-2 days ago 05/27/2017 None insomnia Quality acute 05/20/2017 None insomnia Quality difficu lty falling asleep 05/20/2017 None insomnia Quality disrupt ed sleep 05/20/2017 None insomnia Quality early a wakening 05/20/2017 None anxiety Quality acute 05/20/2017 None anxiety Quality agitation 05/20/2017 None headache Location diffus sushil 04/22/2017 None headache Quality chronic 04/22/2017 None vision change Location i n both eyes 04/22/2017 None vision change Quality di plopia 04/22/2017 None vision change Quality in termittent 04/22/2017 None sinus congestion Location on both sides 04/01/2017 None sinus congestion Quality fullness 04/01/2017 None sinus congestion Quality pain 04/01/2017 None sinus congestion Quality pressure 04/01/2017 None sinus congestion Onset and Resolution ongoing 04/01/2017 Taking Tylenol Sinus and Benadryl sinus congestion Onset of Symptom 4 days ago 04/01/2017 None otalgia Location on the left 04/01/2017 None otalgia Quality dull 04/01/2017 None otalgia Quality throbbing 04/01/2017 None sinus congestion Quality acute 04/01/2017 None sinus pain Location diff usely 04/01/2017 None sinus pain Quality acute 04/01/2017 None flank pain Location diff usely 02/10/2017 None flank pain Radiating the back 02/10/2017 None flank pain Quality acute 02/10/2017 None flank pain Quality aching 02/10/2017 None flank pain Quality burni ng 02/10/2017 None flank pain Onset and Resolution ongoing 02/10/2017 None flank pain Onset of Symptom 3 days ago 02/10/2017 None neck pain Location in th e cervical spine 02/05/2017 None neck pain Location in th e posterior area 02/05/2017 None neck pain Quality acute 02/05/2017 None neck pain Quality aching 02/05/2017 None neck pain Onset and Resolution ongoing 02/05/2017 None otalgia Location on the left 02/05/2017 None otalgia Quality acute 02/05/2017 None otalgia Quality dull 02/05/2017 None otalgia Quality worsening 02/05/2017 None otalgia Onset and Resolution ongoing 02/05/2017 None sore throat Location dif fusely 02/05/2017 None sore throat Quality acute 02/05/2017 None sore throat Quality achi ng 02/05/2017 None sore throat Quality burn ing 02/05/2017 None sore throat Onset and Resolution gradual in onset 02/05/2017 None sore throat Onset of Symptom 2-3 weeks ago 02/05/2017 None anxiety Quality acute 02/05/2017 None anxiety Quality agitation 02/05/2017 None anxiety Quality panic at tacks 02/05/2017 None anxiety Onset and Resolution ongoing 02/05/2017 None fever Quality acute 02/05/2017 None sore throat Onset and Resolution sudden in onset 02/05/2017 None sore throat Location dif fusely 01/13/2017 None sore throat Quality acute 01/13/2017 None sore throat Quality achi ng 01/13/2017 None sore throat Quality burn ing 01/13/2017 None sore throat Onset and Resolution gradual in onset 01/13/2017 None sore throat Onset and Resolution ongoing 01/13/2017 None fever Quality acute 01/13/2017 None fever Quality intermitte nt 01/13/2017 None fever Quality waxing and waning 01/13/2017 None fever Quality worsening 01/13/2017 None fever Onset and Resolution gradual in onset 01/13/2017 None fever Onset and Resolution ongoing 01/13/2017 None sores in the mouth Frequency of Episodes daily 01/13/2017 None sores in the mouth Location diffusely 01/13/2017 None myalgias Location diffus sushil 01/13/2017 None myalgias Quality acute 01/13/2017 None myalgias Quality aching 01/13/2017 None myalgias Quality constant 01/13/2017 None myalgias Quality stiffne ss 01/13/2017 None myalgias Onset and Resolution ongoing 01/13/2017 None sore throat Onset and Resolution sudden in onset 01/13/2017 None pain, generalized Location diffusely 11/27/2016 None pain, generalized Quality chronic 11/27/2016 None pain, generalized Quality stable. 11/27/2016 Patient is stable on hydr ocodone pain, generalized Quality worsening 11/27/2016 only thing that has helpe d in past is ibuprofen and methotrexate dysuria Quality dull 08/27/2016 None dysuria Quality burning 08/27/2016 None pain, generalized Location diffusely 08/27/2016 None pain, generalized Quality chronic. 08/27/2016 Medication monitoring for hydrocodone dysuria Quality acute 08/27/2016 None fever Length of Episodes _ days 08/27/2016 None sinus congestion Location on both sides 08/27/2016 None sinus congestion Quality acute 08/27/2016 None fever Temperature 99 deg taina 08/27/2016 None fever Quality acute 04/23/2016 None fever Quality worsening 04/23/2016 None fever Onset and Resolution sudden in onset 04/23/2016 None fever Onset of Symptom 3 -4 days ago 04/23/2016 None myalgias Location diffus sushil 04/23/2016 None myalgias Quality acute 04/23/2016 None myalgias Quality aching 04/23/2016 None myalgias Onset and Resolution sudden in onset 04/23/2016 None myalgias Onset of Symptom 3-4 days ago 04/23/2016 None pelvic pain Location dif fusely 04/23/2016 None pelvic pain Location on both sides 04/23/2016 None pelvic pain Quality acute 04/23/2016 None pelvic pain Quality achi ng 04/23/2016 None pelvic pain Quality coli cky 04/23/2016 None pelvic pain Quality cram ping 04/23/2016 None pelvic pain Quality spas ms 04/23/2016 None pelvic pain Onset of Symptom 3-4 days ago 04/23/2016 None dysuria Quality aching 04/23/2016 None dysuria Quality acute 04/23/2016 None dysuria Quality worsening 04/23/2016 None dysuria Onset of Symptom _ days ago 04/23/2016 None pelvic pain Quality dull 04/23/2016 None pelvic pain Quality heav iness 04/23/2016 None skin lesion Quality acute 04/17/2016 None skin lesion Location Lef t ankle 04/17/2016 None skin lesion Quality flat 04/17/2016 None skin lesion Quality oozi ng 04/17/2016 None skin lesion Quality tend er 04/17/2016 None skin lesion Quality pigm ented 04/17/2016 None skin lesion Onset and Resolution gradual in onset 04/17/2016 patient has been exposed to impetigo through son skin lesion Onset of Symptom 1-2 weeks ago 04/17/2016 None pain, generalized Location diffusely 03/12/2016 None pain, generalized Quality chronic 03/12/2016 Medication monitoring for hydrocodone---patient due for urine screening and signed pain contract headache Location diffus sushil 03/12/2016 None headache Quality improvi ng 03/12/2016 with botox sore throat Location on both sides 11/10/2015 None sore throat Quality wors ening. 11/10/2015 Patient has had two doses of amoxil 875mg sore throat Limitation on Activities limits oral intake 11/10/2015 None sore throat Onset of Symptom 2 days ago 11/10/2015 None sore throat Location dif fusely 11/09/2015 None sore throat Location on both sides 11/09/2015 None sore throat Quality acute 11/09/2015 None sore throat Quality burn ing 11/09/2015 None sore throat Quality achi ng 11/09/2015 None sore throat Onset of Symptom 3 days ago 11/09/2015 None pain, generalized Location diffusely 10/10/2015 None pain, generalized Quality chronic. 10/10/2015 Fibromyalgia check up pain, generalized Quality aching 10/10/2015 None lymph node enlargement/mass Quality non- tender 10/10/2015 None lymph node enlargement/mass Location in the right posterior cervical chain 10/10/2015 None stress Exacerbating Factors insomnia 10/02/2015 None stress Exacerbating Factors stressful life changes 10/02/2015 None muscle weakness Location diffusely 10/02/2015 None muscle weakness Quality upper extremities 10/02/2015 None muscle weakness Quality lower extremities 10/02/2015 None muscle weakness Onset and Resolution ongoing 10/02/2015 None muscle weakness Onset of Symptom 1 week ago 10/02/2015 None fatigue Quality acute 10/02/2015 None fatigue Quality intermit tent 10/02/2015 None fatigue Quality worsening 10/02/2015 None fatigue Onset and Resolution gradual in onset 10/02/2015 patient states has been having trouble even staying awake while driving. pain, generalized Location diffusely 07/10/2015 None pain, generalized Quality chronic 07/10/2015 None pain, generalized Quality aching 07/10/2015 None pain, generalized Quality worsening. 07/10/2015 Patient thinks may be rel ated to weather change anxiety Quality agitation 07/10/2015 None anxiety Quality chronic 07/10/2015 None anxiety Quality worsenin g. 07/10/2015 Doesn't think cymbalta is working anxiety Quality panic at tacks 07/10/2015 None arrhythmia Quality chan cardia 07/10/2015 None arrhythmia Quality inter mittent 07/10/2015 None anxiety Onset and Resolution ongoing 07/10/2015 None dysuria Quality burning 06/30/2015 and cloudy urine fever Quality waxing and waning 06/08/2015 None pulmonary embolus Onset and Resolution resolved 06/08/2015 Currently on coumadin for TIA's urinary frequency Quality chronic 05/31/2015 None urinary frequency Onset and Resolution ongoing 05/31/2015 None urinary frequency Quality worsening 05/31/2015 last 2 days flank pain Location diff usely 05/31/2015 None flank pain Radiating the back 05/31/2015 None flank pain Onset of Symptom 2 days ago 05/31/2015 None dysuria Quality acute 05/31/2015 None dysuria Quality burning 05/31/2015 None dysuria Onset of Symptom 2 days ago 05/31/2015 None fever Quality acute 05/24/2015 None lymph node enlargement/mass Location in the right anterior cervical chain 05/24/2015 None lymph node enlargement/mass Location in the right axilla 05/24/2015 None lymph node enlargement/mass Quality acute 05/24/2015 None lymph node enlargement/mass Quality hard 05/24/2015 None lymph node enlargement/mass Quality stable 05/24/2015 None pain, generalized Location diffusely 05/24/2015 None pain, generalized Quality acute 05/24/2015 None pain, generalized Quality throbbing 05/24/2015 None pain, generalized Onset of Symptom during adulthood 05/24/2015 None pain, generalized Onset and Resolution ongoing 05/24/2015 None pain, generalized Alleviating Factors activity 05/24/2015 None pain, generalized Pertinent Findings fatigue 05/24/2015 None pain, generalized Pertinent Findings abdominal pain 05/24/2015 None Advance Directives No Advance Directive data Encounters Encounter Performer Loca tion Codes Date ([id number]) OFFICE/OUTPA TIENT VISIT EST Diagnosis: Encounter for therapeutic drug level monitoring[ICD10: Z51.81] 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] Ivon BALL DO [facility] CPT-4: 46146 03/08/2019 ([id number]) OFFICE/OUTPA TIENT VISIT EST Diagnosis: Epistaxis[ICD10: R04.0] Diagnosis: Radiculopathy, site unspecified[ICD10: M54.10] Diagnosis: Encounter for therapeutic drug level monitoring[ICD10: Z51.81] Kristine BRAMBILA DO [facility] CPT-4: 01136 02/17/2019 ([id number]) OFFICE/OUTPA TIENT VISIT EST Diagnosis: Unspecified urinary incontinence[ICD10: R32] Diagnosis: Irritable bowel syndrome with constipation[ICD10: K58.1] Diagnosis: Low back pain[ICD10: M54.5] Ivon BRAMBILA DO [facility] CPT-4: 32669 02/08/2019 ([id number]) OFFICE/OUTPA TIENT VISIT EST Diagnosis: Other fatigue[ICD10: R53.83] Diagnosis: COUGH[ICD10: R05] Diagnosis: Acute pharyngitis due to other specified organisms[ICD10: J02.8] 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] Diagnosis: Abnormal levels of other serum enzymes[ICD10: R74.8] Ivon SHAW DO [facility] CPT-4: 35878 01/19/2019 ([id number]) OFFICE/OUTPA TIENT VISIT EST Diagnosis: Otalgia, left ear[ICD10: H92.02] Diagnosis: Other fatigue[ICD10: R53.83] Ivon BRAMBILA DO [facility] CPT-4: 94910 01/04/2019 ([id number]) NURSE/OUTPAT IENT VISIT EST Diagnosis: Dehydration[ICD10: E86.0] Kristine BRAMBILA DO [facility] CPT-4: 70675 12/18/2018 ([id number]) NURSE/OUTPAT IENT VISIT EST Diagnosis: Dehydration[ICD10: E86.0] Kristine BRAMBILA DO [facility] CPT-4: 34286 12/16/2018 ([id number]) OFFICE/OUTPA TIENT VISIT EST Diagnosis: Other fatigue[ICD10: R53.83] Diagnosis: Anemia, unspecified[ICD10: D64.9] Diagnosis: Benign lipomatous neoplasm of skin and subcutaneous tissue of trunk[ICD10: D17.1] Kristine BRAMBILA DO [facility] CPT-4: 02772 12/03/2018 ([id number]) OFFICE/OUTPA TIENT VISIT EST Diagnosis: Acute pharyngitis, unspecified[ICD10: J02.9] Diagnosis: Enlarged lymph nodes, unspecified[ICD10: R59.9] Ivon SHAW [facility] CPT-4: 96709 12/02/2018 ([id number]) OFFICE/OUTPA TIENT VISIT EST Diagnosis: Encounter for therapeutic drug level monitoring[ICD10: Z51.81] Diagnosis: assisted (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[ICD10: Z79.01] Diagnosis: Acute suppurative otitis media without spontaneous rupture of ear drum, left ear[ICD10: H66.002] Ivon BRAMBILA [facility] CPT-4: 21427 11/30/2018 ([id number]) NURSE/OUTPAT IENT VISIT EST Diagnosis: Dysuria[ICD10: R30.0] Kristine YULINE KalinImelda PATTY [facility] CPT-4: 20521 11/20/2018 ([id number]) NURSE/OUTPAT IENT VISIT EST Diagnosis: Streptococcal pharyngitis[ICD10: J02.0] Kristine YULINE Luisa [facility] CPT-4: 62224 11/12/2018 ([id number]) OFFICE/OUTPA TIENT VISIT EST Diagnosis: Streptococcal pharyngitis[ICD10: J02.0] Lulu Navarro KRISTINE KalinImelda PATTY [facility] CPT-4: 66984 11/11/2018 ([id number]) NURSE/OUTPAT IENT VISIT EST Diagnosis: Personal history of diseases of the blood and blood-forming organs and certain disorders involving the immune mechanism[ICD10: Z86.2] Kristine Patty YULINE KalinImelda YONATHAN ROWLAND [facility] CPT-4: 96346 10/27/2018 ([id number]) NURSE/OUTPAT IENT VISIT EST Diagnosis: Other allergic rhinitis[ICD10: J30.89] Kristine Yonathandanielgordo YUKRISTINE KalinImelda YONATHAN TERRELLR [facility] CPT-4: 69318 10/09/2018 ([id number]) OFFICE/OUTPA TIENT VISIT EST Diagnosis: Acute recurrent maxillary sinusitis[ICD10: J01.01] Lulu BRAMBILA DO [facility] CPT-4: 86778 10/08/2018 ([id number]) OFFICE/OUTPA TIENT VISIT EST Diagnosis: Acute recurrent maxillary sinusitis[ICD10: J01.01] Diagnosis: Acute pharyngitis, unspecified[ICD10: J02.9] Lulu BRAMBILA DO [facility] CPT-4: 33659 10/07/2018 ([id number]) OFFICE/OUTPA TIENT VISIT EST Diagnosis: Dizziness and giddiness[ICD10: R42] Diagnosis: Personal history of pulmonary embolism[ICD10: Z86.711] Lulu BRAMBILA DO [facility] CPT-4: 56746 09/25/2018 ([id number]) NURSE/OUTPAT IENT VISIT EST Diagnosis: Dysuria[ICD10: R30.0] Kristine BRAMBILA [employer] [facility] CPT-4: 06130 09/10/2018 ([id number]) OFFICE/OUTPA TIENT VISIT EST Diagnosis: Streptococcal infection, unspecified site[ICD10: A49.1] Diagnosis: Furuncle right hand[ICD10: L02.521] Diagnosis: Localized swelling, mass and lump, neck[ICD10: R22.1] Kristine ROWLAND [employer] [facility] CPT-4: 42694 09/08/2018 ([id number]) NURSE/OUTPAT IENT VISIT EST Diagnosis: Encounter for therapeutic drug level monitoring[ICD10: Z51.81] Kristine BRAMBILA [employer] [facility] CPT-4: 03631 08/14/2018 ([id number]) OFFICE/OUTPA TIENT VISIT EST Diagnosis: Acute sinusitis, unspecified[ICD10: J01.90] Diagnosis: Otalgia, left ear[ICD10: H92.02] Ivon BRAMBILA [employer] [facility] CPT-4: 37112 07/23/2018 ([id number]) OFFICE/OUTPA TIENT VISIT EST Diagnosis: Streptococcal infection, unspecified site[ICD10: A49.1] Kristine ROWLAND [facility] CPT-4: 60972 07/08/2018 ([id number]) OFFICE/OUTPA TIENT VISIT EST Diagnosis: Periapical abscess with sinus[ICD10: K04.6] Diagnosis: Streptococcal infection, unspecified site[ICD10: A49.1] Diagnosis: Localized enlarged lymph nodes[ICD10: R59.0] Ivon SHAW [facility] CPT-4: 46934 07/02/2018 ([id number]) NURSE/OUTPAT IENT VISIT EST Diagnosis: Pain in unspecified joint[ICD10: M25.50] Kristine ROWLAND [facility] CPT-4: 68796 06/22/2018 ([id number]) NURSE/OUTPAT IENT VISIT EST Diagnosis: Paroxysmal tachycardia, unspecified[ICD10: I47.9] Diagnosis: Dysuria[ICD10: R30.0] Kristine BRAMBILA [facility] CPT-4: 81792 06/17/2018 ([id number]) OFFICE/OUTPA TIENT VISIT EST Diagnosis: Acute sinusitis, unspecified[ICD10: J01.90] Ivon SHAW [facility] CPT-4: 40264 06/02/2018 ([id number]) NURSE/OUTPAT IENT VISIT EST Diagnosis: Acute mastoiditis without complications, left ear[ICD10: H70.002] Kristine BRAMBILA DO [facility] CPT-4: 79108 05/12/2018 ([id number]) OFFICE/OUTPA TIENT VISIT EST Diagnosis: Acute mastoiditis without complications, left ear[ICD10: H70.002] Diagnosis: assisted (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[ICD10: Z79.01] Ivon SHAW [facility] CPT-4: 06265 05/11/2018 ([id number]) NURSE/OUTPAT IENT VISIT EST Diagnosis: Personal history of diseases of the blood and blood-forming organs and certain disorders involving the immune mechanism[ICD10: Z86.2] Kristine ROWLAND [facility] CPT-4: 70113 04/30/2018 ([id number]) OFFICE/OUTPA TIENT VISIT EST Diagnosis: Acute sinusitis, unspecified[ICD10: J01.90] Ivon SHAW DO [facility] CPT-4: 90216 04/02/2018 ([id number]) NURSE/OUTPAT IENT VISIT EST Diagnosis: FLU VACCINE[ICD10: Z23] Diagnosis: Encounter for therapeutic drug level monitoring[ICD10: Z51.81] Diagnosis: assisted (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[ICD10: Z79.01] Kristine BRAMBILA DO [facility] CPT-4: 38299 03/24/2018 ([id number]) OFFICE/OUTPA TIENT VISIT EST Diagnosis: Other allergic rhinitis[ICD10: J30.89] Diagnosis: Migraine, unspecified, not intractable, without status migrainosus[ICD10: G43.909] Ivon BRAMBILA DO [facility] CPT-4: 10596 03/16/2018 ([id number]) NURSE/OUTPAT IENT VISIT EST Diagnosis: Encounter for therapeutic drug level monitoring[ICD10: Z51.81] Kristine BRAMBILA [facility] CPT-4: 39726 02/24/2018 OFFICE/OUTPATIENT SIT EST Diagnosis: Diarrhea, unspecified[ICD10: R19.7] Diagnosis: Abdominal distension (gaseous)[ICD10: R14.0] Diagnosis: Epigastric pain[ICD10: R10.13] Kristine BRAMBILA DO [facility] CPT-4: 15226 02/16/2018 ([id number]) NURSE/OUTPAT IENT VISIT EST Diagnosis: assisted (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[ICD10: Z79.01] Diagnosis: Urinary tract infection, site not specified[ICD10: N39.0] Kristine BRAMBILA DO [facility] CPT-4: 43362 02/05/2018 ([id number]) NURSE/OUTPAT IENT VISIT EST Diagnosis: Urinary tract infection, site not specified[ICD10: N39.0] Kristine BRAMBILA DO [facility] CPT-4: 49531 01/29/2018 ([id number]) NURSE/OUTPAT IENT VISIT EST Diagnosis: Urinary tract infection, site not specified[ICD10: N39.0] Kristine BRAMBILA DO [facility] CPT-4: 42091 01/28/2018 ([id number]) OFFICE/OUTPA TIENT VISIT EST Diagnosis: Other allergic rhinitis[ICD10: J30.89] Diagnosis: Acute suppurative otitis media without spontaneous rupture of ear drum, right ear[ICD10: H66.001] Diagnosis: Contact with and (suspected) exposure to potentially hazardous body fluids[ICD10: Z77.21] Ivon BRAMBILA DO [facility] CPT-4: 75518 01/26/2018 ([id number]) OFFICE/OUTPA TIENT VISIT EST Diagnosis: Otalgia, left ear[ICD10: H92.02] Diagnosis: Other lesions of oral mucosa[ICD10: K13.79] Ivon SHAW DO [facility] CPT-4: 66425 01/01/2018 ([id number]) OFFICE/OUTPA TIENT VISIT EST Diagnosis: Acute suppurative otitis media with spontaneous rupture of ear drum, left ear[ICD10: H66.012] Diagnosis: Migraine, unspecified, not intractable, without status migrainosus[ICD10: G43.909] Ivon BRAMBILA DO [facility] CPT-4: 84283 12/25/2017 ([id number]) OFFICE/OUTPA TIENT VISIT EST Diagnosis: Acute pharyngitis, unspecified[ICD10: J02.9] Ivon SHAW DO [facility] CPT-4: 25660 12/11/2017 ([id number]) NURSE/OUTPAT IENT VISIT EST Diagnosis: Encounter for therapeutic drug level monitoring[ICD10: Z51.81] Diagnosis: Other specified abnormal immunological findings in serum[ICD10: R76.8] Diagnosis: Vitamin D deficiency, unspecified[ICD10: E55.9] Diagnosis: Tachycardia, unspecified[ICD10: R00.0] Kristine ROWLAND [employer] CPT-4: 13762 12/01/2017 ([id number]) PREV VISIT E ST AGE 40-64 Diagnosis: Encounter for general adult medical examination without abnormal findings[ICD10: Z00.00] Diagnosis: Encounter for gynecological examination (general) (routine) without abnormal findings[ICD10: Z01.419] Kristine BRAMBILA DO [facility] CPT-4: 31948 11/05/2017 ([id number]) OFFICE/OUTPA TIENT VISIT EST Diagnosis: Other specified abnormal immunological findings in serum[ICD10: R76.8] Kristine BRAMBILA DO [facility] CPT-4: 28868 10/14/2017 ([id number]) OFFICE/OUTPA TIENT VISIT EST Diagnosis: Pain in right shoulder[ICD10: M25.511] 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] Ivon SHAW [employer] CPT-4: 68773 10/06/2017 OFFICE/OUTPATIENT SIT EST Diagnosis: Paresthesia of skin[ICD10: R20.2] Diagnosis: Other fatigue[ICD10: R53.83] Diagnosis: Pain in unspecified joint[ICD10: M25.50] Diagnosis: Raynaud's syndrome without gangrene[ICD10: I73.00] Diagnosis: Myalgia[ICD10: M79.1] Diagnosis: Acute stress reaction[ICD10: F43.0] Diagnosis: Polyneuropathy, unspecified[ICD10: G62.9] Diagnosis: Personal history of diseases of the blood and blood-forming organs and certain disorders involving the immune mechanism[ICD10: Z86.2] Diagnosis: Vitamin D deficiency, unspecified[ICD10: E55.9] Kristine ROWLAND [employer] CPT-4: 21671 10/01/2017 ([id number]) OFFICE/OUTPA TIENT VISIT EST Diagnosis: Burn of second degree of back of left hand, initial encounter[ICD10: T23.262A] Ivon BRAMBILA [employer] CPT-4: 62106 09/10/2017 ([id number]) OFFICE/OUTPA TIENT VISIT EST Diagnosis: Pain in unspecified joint[ICD10: M25.50] Diagnosis: Dysuria[ICD10: R30.0] Kristine BRAMBILA DO [facility] CPT-4: 51963 09/05/2017 ([id number]) OFFICE/OUTPA TIENT VISIT EST Diagnosis: assisted (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[ICD10: Z79.01] Kristine BRAMBILA DO [facility] CPT-4: 04564 09/04/2017 ([id number]) OFFICE/OUTPA TIENT VISIT EST Diagnosis: Fever, unspecified[ICD10: R50.9] Diagnosis: Encounter for therapeutic drug level monitoring[ICD10: Z51.81] Kristine BRAMBILA DO [facility] CPT-4: 50933 08/07/2017 OFFICE/OUTPATIENT SIT EST Diagnosis: Acute upper respiratory infection, unspecified[ICD10: J06.9] Diagnosis: Gastro-esophageal reflux disease without esophagitis[ICD10: K21.9] Diagnosis: Fever, unspecified[ICD10: R50.9] Ivon BRAMBILA [facility] CPT-4: 06892 07/15/2017 ([id number]) OFFICE/OUTPA TIENT VISIT EST Diagnosis: Otitis media, unspecified, left ear[ICD10: H66.92] Diagnosis: Localized enlarged lymph nodes[ICD10: R59.0] Kristine ROWLAND [facility] CPT-4: 20196 07/04/2017 ([id number]) OFFICE/OUTPA TIENT VISIT EST Diagnosis: Localized enlarged lymph nodes[ICD10: R59.0] Diagnosis: Otitis media, unspecified, left ear[ICD10: H66.92] Kristine ROWLAND [facility] CPT-4: 30631 07/02/2017 OFFICE/OUTPATIENT SIT EST Diagnosis: Otitis media, unspecified, left ear[ICD10: H66.92] Diagnosis: Localized enlarged lymph nodes[ICD10: R59.0] Ivon SHAW [facility] CPT-4: 82807 07/01/2017 ([id number]) OFFICE/OUTPA TIENT VISIT EST Diagnosis: Encounter for therapeutic drug level monitoring[ICD10: Z51.81] Kristine BRAMBILA DO [facility] CPT-4: 22681 06/19/2017 OFFICE/OUTPATIENT SIT EST Diagnosis: Pneumonia, unspecified organism[ICD10: J18.9] Diagnosis: Insomnia, unspecified[ICD10: G47.00] Ivon BALL [facility] CPT-4: 42549 05/27/2017 OFFICE/OUTPATIENT SIT EST Diagnosis: Insomnia, unspecified[ICD10: G47.00] Diagnosis: Other chronic pain[ICD10: G89.29] Ivon BALL [facility] CPT-4: 98360 05/20/2017 ([id number]) OFFICE/OUTPA TIENT VISIT EST Diagnosis: Headache[ICD10: R51] Diagnosis: Diplopia[ICD10: H53.2] Kristine BRAMBILA [facility] CPT-4: 04946 04/22/2017 ([id number]) OFFICE/OUTPA TIENT VISIT EST Diagnosis: Acute sinusitis, unspecified[ICD10: J01.90] Kristine [facility] CPT-4: 93110 04/01/2017 ([id number]) OFFICE/OUTPA TIENT VISIT EST Diagnosis: Pelvic and perineal pain[ICD10: R10.2] 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] Diagnosis: Hematuria, unspecified[ICD10: R31.9] Kristine ROWLAND [facility] CPT-4: 41677 02/10/2017 ([id number]) OFFICE/OUTPA TIENT VISIT EST Diagnosis: Acute pharyngitis, unspecified[ICD10: J02.9] Diagnosis: Cervicalgia[ICD10: M54.2] Diagnosis: Localized enlarged lymph nodes[ICD10: R59.0] Diagnosis: Acute stress reaction[ICD10: F43.0] Kristine [facility] CPT-4: 17098 02/05/2017 ([id number]) OFFICE/OUTPA TIENT VISIT EST Diagnosis: Acute pharyngitis due to other specified organisms[ICD10: J02.8] Kristine BRAMBILA [facility] CPT-4: 88008 02/03/2017 ([id number]) OFFICE/OUTPA TIENT VISIT EST Diagnosis: Acute pharyngitis due to other specified organisms[ICD10: J02.8] 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] Kristine ROWLAND [facility] CPT-4: 02480 01/13/2017 ([id number]) OFFICE/OUTPA TIENT VISIT EST Diagnosis: Encounter for therapeutic drug level monitoring[ICD10: Z51.81] Kristine BRAMBILA [facility] CPT-4: 57907 12/18/2016 ([id number]) OFFICE/OUTPA TIENT VISIT EST Diagnosis: Pain in unspecified joint[ICD10: M25.50] Kristine ROWLAND [facility] CPT-4: 35965 11/27/2016 ([id number]) OFFICE/OUTPA TIENT VISIT EST Diagnosis: URI, ACUTE[ICD10: J06.9] Diagnosis: Dysuria[ICD10: R30.0] Diagnosis: assisted (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[ICD10: Z79.01] Diagnosis: Encounter for therapeutic drug level monitoring[ICD10: Z51.81] Kristine BRAMBILA [facility] CPT-4: 32544 08/27/2016 ([id number]) OFFICE/OUTPA TIENT VISIT EST Diagnosis: assisted (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[ICD10: Z79.01] Diagnosis: Abnormal levels of other serum enzymes[ICD10: R74.8] Kristine ROWLAND [facility] CPT-4: 35355 05/24/2016 ([id number]) OFFICE/OUTPA TIENT VISIT EST Diagnosis: Urinary tract infection, site not specified[ICD10: N39.0] Nayeli Anderson KRISTINE BRAMBILA [facility] CPT-4: 48932 04/23/2016 ([id number]) OFFICE/OUTPA TIENT VISIT EST Diagnosis: Abrasion, left lower leg, initial encounter[ICD10: S80.812A] Nayeli Anderson KRISTINE KalinImelda PATTY [facility] CPT-4: 94715 04/17/2016 ([id number]) OFFICE/OUTPA TIENT VISIT EST Diagnosis: assisted (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[ICD10: Z79.01] Kristine Patty KRISTINE KalinImelda [facility] CPT-4: 05213 04/11/2016 ([id number]) OFFICE/OUTPA TIENT VISIT EST Diagnosis: Migraine, unspecified, not intractable, without status migrainosus[ICD10: G43.909] Diagnosis: Fibromyalgia[ICD10: M79.7] Kristine Yonathandanielgordo KRISTINE KalinImelda [facility] CPT-4: 29352 03/12/2016 ([id number]) OFFICE/OUTPA TIENT VISIT EST Diagnosis: assisted (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[ICD10: Z79.01] Kristine Yonathandanielgordo KRISTINE KalinImelda PATTY [facility] CPT-4: 45098 02/12/2016 ([id number]) OFFICE/OUTPA TIENT VISIT EST 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] Kristine Patty KRISTINE KalinImelda PATTY [facility] CPT-4: 97168 02/01/2016 ([id number]) OFFICE/OUTPA TIENT VISIT EST Diagnosis: Encounter for therapeutic drug level monitoring[ICD10: Z51.81] Kristine MINER KalinImelda PATT[facility] CPT-4: 97459 01/22/2016 OFFICE/OUTPATIENT SIT EST Diagnosis: Encounter for therapeutic drug level monitoring[ICD10: Z51.81] 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] Diagnosis: Acute tonsillitis, unspecified[ICD10: J03.90] Julee MINER KalinImelda YONATHAN TERRELLQuita [facility] CPT-4: 91151 11/10/2015 ([id number]) OFFICE/OUTPA TIENT VISIT EST Diagnosis: Acute tonsillitis, unspecified[ICD10: J03.90] Nayeli BRAMBILA DO [facility] CPT-4: 46207 11/09/2015 ([id number]) OFFICE/OUTPA TIENT VISIT EST Diagnosis: Localized swelling, mass and lump, neck[ICD10: R22.1] Diagnosis: Pain in left hip[ICD10: M25.552] Diagnosis: Pain in right hip[ICD10: M25.551] Kristine ROWLAND [employer] CPT-4: 24873 10/10/2015 ([id number]) OFFICE/OUTPA TIENT VISIT EST Diagnosis: Other fatigue[ICD10: R53.83] Diagnosis: Localized swelling, mass and lump, neck[ICD10: R22.1] Diagnosis: Generalized enlarged lymph nodes[ICD10: R59.1] 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] Diagnosis: Candidiasis, unspecified[ICD10: B37.9] Diagnosis: Other chronic pain[ICD10: G89.29] Diagnosis: Acute upper respiratory infection, unspecified[ICD10: J06.9] Nayeli BRAMBILA [employer] CPT-4: 90025 10/02/2015 ([id number]) OFFICE/OUTPA TIENT VISIT EST 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] Diagnosis: Other fatigue[ICD10: R53.83] Kristine BRAMBILA [employer] CPT-4: 92387 09/29/2015 ([id number]) OFFICE/OUTPA TIENT VISIT EST 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] Kristine BRAMBILA [employer] CPT-4: 78214 07/27/2015 ([id number]) OFFICE/OUTPA TIENT VISIT EST Diagnosis: Fibromyalgia[ICD10: M79.7] Diagnosis: Tachycardia, unspecified[ICD10: R00.0] Kristine ROWLAND [employer] CPT-4: 54097 07/10/2015 ([id number]) OFFICE/OUTPA TIENT VISIT EST Diagnosis: Encounter for therapeutic drug level monitoring[ICD10: Z51.81] Diagnosis: Dysuria[ICD10: R30.0] Kristine BRAMBILA DO [facility] CPT-4: 14193 06/30/2015 OFFICE/OUTPATIENT SIT EST Diagnosis: Scar conditions and fibrosis of skin[ICD10: 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 RENDER DO [facility] CPT-4: 80650 06/27/2015 ([id number]) OFFICE/OUTPA TIENT VISIT EST Diagnosis: assisted (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[ICD10: Z79.01] Kristine BRAMBILA DO [facility] CPT-4: 10488 06/21/2015 OFFICE/OUTPATIENT SIT EST Diagnosis: Fibromyalgia[ICD10: M79.7] Kristine BRAMBILA [employer] [facility] CPT-4: 20935 06/08/2015 ([id number]) OFFICE/OUTPA TIENT VISIT EST Diagnosis: Dysuria[ICD10: R30.0] Kristine BRAMBILA [employer] [facility] CPT-4: 80909 05/31/2015 OFFICE/OUTPATIENT SIT NEW Diagnosis: Localized enlarged lymph nodes[ICD10: R59.0] Diagnosis: Benign intracranial hypertension[ICD10: G93.2] Diagnosis: Personal history of pulmonary embolism[ICD10: Z86.711] Diagnosis: assisted (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[ICD10: Z79.01] Diagnosis: Tachycardia, unspecified[ICD10: R00.0] Meli MINER [employer] [facility] CPT-4: 31539 05/24/2015 Plan of Care Planned Activity Notes C odes Status Date Visit Diagnosis Plan: assisted (current ) use of 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 Discussion: updated pt/inr ICD-9 : V58.61 ICD-10 : Z79.01 03/08/2019 Visit Diagnosis Plan: Rash and other non specific skin eruption Discussion: discussed that the rash had the appearance of shingles but was in a region that is atypical for shingles. patient very concerned. viral swab and bacterial swab obtained for diagnosis. will check for herpes simplex and herpes zoster. instructed to use mupirocin ointment tid to cover for bacterial cause. ICD-9 : 782.1 ICD-10 : R21 03/08/2019 Appointment: Ivon Sky [address] [place], [place] [id number] ACUTE ILLNESS 03/08/2019 Patient Education: mupirocin calcium- Op [employer] Coupon [id number] [email or web address] Completed 03/08/2019 Visit Diagnosis Plan: Epistaxis Disc ussion: Afrin to right nares BID x 3 days Check PT/INR now ICD-9 : 784.7 ICD-10 : R04.0 02/17/2019 Visit Diagnosis Plan: Radiculopathy, site unspecified Discussion: Check L/S spine x-ray to start with ICD-9 : 724.4 ICD-10 : M54.10 02/17/2019 Appointment: [facility] [phone] [facility] [facility] 02/17/2019 Care Plan: X-RAY EXAM L-S SPINE 2/3 VWS LOINC : 94471-5 Pending 02/17/2019 Appointment: Ivon Sky [address] [place], [place] [id number] US CANCELED 02/16/2019 Visit Diagnosis Plan: Unspecified urinary incontinence Discussion: will send urine off for culture. instructed patient on kegels. call office with any worsening s/s. ICD-9 : 788.30 ICD-10 : R32 02/08/2019 Visit Diagnosis Plan: Low back pain Discussion: will send urine off for culture. instructed to call with worsening symptoms and may need imagine to rule out kidney stone. go to ed if severe over night. ICD-9 : 724.2 ICD-10 : M54.5 02/08/2019 Visit Diagnosis Plan: Irritable bowel sy ndrome with constipation Discussion: samples of 72 mcg linzess gi samina to patient to take daily. instructed to call office if no improvement and will try stronger dose. if works, call office and will send rx to pharmacy. ICD-9 : 564.1 ICD-10 : K58.1 02/08/2019 Appointment: Ivon Sky [address] [place] [address] ACUTE ILLNESS 02/08/2019 Patient Education: Tr[employer]- [employer] Coupon [id number] [email or web address] Completed 02/08/2019 Visit Diagnosis Plan: Other fatigue Discussion: will obtain cbc, aso, lft, pt/inr, mycoplasma, legionairres due to symptoms. educated patient that we will wait for results to be completed before administering medication due to patient being on multiple antibiotics int he past and risk of medications being ineffective for her. ICD-9 : 780.79 ICD-10 : R53.83 01/19/2019 Visit Diagnosis Plan: Abnormal levels of other serum e nzymes Discussion: updated LFT ordered. ICD-9 : 790.5 ICD-10 : R74.8 01/19/2019 Visit Diagnosis Plan: Acute pharyngitis due to other specified organisms Discussion: rapid strep neg. ICD-9 : 462 ICD-10 : J02.8 01/19/2019 Visit Diagnosis Plan: assisted (current ) use of 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 Discussion: pt/inr ordered ICD-9 : V58.61 ICD-10 : Z79.01 01/19/2019 Visit Diagnosis Plan: COUGH Discussi on: see other plans. sputum culture to be obtained as well. instructed patient to start taking daily allergy medication but patient does not believe it to be allergies and would like to wait for blood work to return. ICD-9 : 786.2 ICD-10 : R05 01/19/2019 Appointment: Ivon Sky [address] [facility] ACUTE ILLNESS 01/19/2019 Visit Diagnosis Plan: Otalgia, left ear Discussion: 40 mg kenalog to be given in office to cover for allergy etiology. call office with new or worsening symptoms. ICD-9 : 388.70 ICD-10 : H92.02 01/04/2019 Visit Diagnosis Plan: Other fatigue Discussion: aso blood test ordered to be completed since patient has recurring strep. ICD-9 : 780.79 ICD-10 : R53.83 01/04/2019 Appointment: Ivon Sky [address] [place] [address] ACUTE ILLNESS 01/04/2019 Appointment: Kristine Brambila WPtel: [address] [place] [address] LAB 12/18/2018 Appointment: Kristine Brambila WPtel: [address] [place] [address] ACUTE ILLNESS 12/16/2018 Visit Diagnosis Plan: Anemia, unspecified Discussion: Check B12, iron, ferritin levels ICD-9 : 285.9 ICD-10 : D64.9 12/03/2018 Visit Diagnosis Plan: Benign lipomatous neoplasm of skin and subcutaneous tissue of trunk Discussion: Monitor/Observe ICD-9 : 214.1 ICD-10 : D17.1 12/03/2018 Visit Diagnosis Plan: Other fatigue Discussion: Update CBC, TSH, Free T4, CMP ICD-9 : 780.79 ICD-10 : R53.83 12/03/2018 Appointment: Kristine Brambila WPtel: [address] [place] [address] ACUTE ILLNESS 12/03/2018 Visit Diagnosis Plan: Enlarged lymph nodes, unspecifie d Discussion: if no improvement in one week, call clininc and may need updated ultrasound of lymph node. ICD-9 : 785.6 ICD-10 : R59.9 12/02/2018 Visit Diagnosis Plan: Acute pharyngitis, unspecified Discussion: rapid strep negative. zithromax prescribed to cover for variety of infections due to painful, swollen lymph node as well. patient unable to tolerate medrol packs and had a steroid shot recently. ICD-9 : 462 ICD-10 : J02.9 12/02/2018 Appointment: Ivon Sky [address] [place] [address] FOLLOW UP 12/02/2018 Visit Diagnosis Plan: 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 (current ) use of 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 Discussion: pt/inr drawn in office ICD-9 : V58.61 ICD-10 : Z79.01 11/30/2018 Visit Diagnosis Plan: Acute suppurative otitis media without spontaneous rupture of ear drum, left ear Discussion: rocephin shot given in office. instructed to call or rtc with any new or worsening concerns. tylenol prn pain. ICD-9 : 382.00 ICD-10 : H66.002 11/30/2018 Appointment: Ivon Sky [address] ACUTE ILLNESS 11/30/2018 Patient Education: Coumadin- [employer] Coupon [id number] https://[email or web address]/resources/[email or web address] Completed 11/30/2018 Appointment: Kristine Brambila WPtel: [address] [place] [address] UA 11/20/2018 Appointment: Kristine Brambila WPtel: [address] [place] [address] US INJECTION 11/12/2018 Visit Diagnosis Plan: Streptococcal pharyngitis Discussion: Strep A- positive ASO titer today along with CBC. Rocephin 1 gram. RTC tmrw for another injection. Patient states understanding. ICD-9 : 034.0 ICD-10 : J02.0 11/11/2018 Appointment: Lulu Navarro [address] [place] [address] ACUTE ILLNESS 11/11/2018 Appointment: Kristine Brambila WPtel: [address] [place] [address] ACUTE ILLNESS 10/27/2018 Appointment: Kristine Brambila WPtel: [address] [place] [address] [place] INJECTION 10/09/2018 Visit Diagnosis Plan: Acute recurrent maxillary sinusi tis Discussion: Rocephin 1 gram administered in clinic- patient tolerated well. Continue with supportive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 oral abx 04/17/2016 Appointment: Justin Nayeli [address] [id number] ACUTE ILLNESS 04/17/2016 Patient Education: Patient Medication Summary Completed 04/17/2016 Patient Education: [facility] - Saving AutoInj - 18-64 - Dynamic Portal ID Completed 04/17/2016 Appointment: Kristine Brambila WPtel: [address] [place] [address] LAB 04/11/2016 Patient Education: Patient Medication Summary Completed 04/11/2016 Visit Plan: Check CMP, CBC, TSH, PT /INR today Continue current meds Patient going for botox injections for migraines 03/12/2016 Visit Plan: Check CMP, CBC, TSH, PT /INR today Continue current meds Patient going for botox injections for migraines 03/12/2016 Visit Plan: Check CMP, CBC, TSH, PT /INR today Continue current meds Patient going for botox injections for migraines 03/12/2016 Appointment: Kristine Brambila WPtel: [address] [place], [place] [phone] 03/12 confirmed-sp FOLLOW UP 03/12/2016 Patient Education: Patient Medication Summary Completed 03/12/2016 Appointment: Kristine Brambila WPtel: [address] [place], [place] [phone] LAB 02/12/2016 Patient Education: Patient Medication Summary Completed 02/12/2016 Appointment: Kristine Brambila WPtel: [address] [place], [place] [phone] [place] LAB 02/01/2016 Patient Education: Patient Medication Summary Completed 02/01/2016 Appointment: Kristine Brambila WPtel: [address] [place], [place] [phone] LAB 01/22/2016 Patient Education: Patient Medication Summary Completed 01/22/2016 Visit Plan: Rocephin 1gm IM now EBV Antibodies (PT/INR) Same supportive information as yesterday. UC for worsening, call Friday if no improvement 11/10/2015 Visit Plan: Rocephin 1gm IM now EBV Antibodies (PT/INR) Same supportive information as yesterday. UC for worsening, call Friday if no improvement 11/10/2015 Visit Plan: Rocephin 1gm IM now EBV Antibodies (PT/INR) Same supportive information as yesterday. UC for worsening, call Friday if no improvement 11/10/2015 Visit Plan: Rocephin 1gm IM now EBV Antibodies (PT/INR) Same supportive information as yesterday. UC for worsening, call Friday if no improvement 11/10/2015 Appointment: Julee Slater WPtel: [phone] [id number] ACUTE ILLNESS 11/10/2015 Patient Education: Patient Medication Summary Completed 11/10/2015 Visit Plan: Rapid strep negative Cu lture pending Rx as above New toothbrush in 24 hours Supportive care otherwise 11/09/2015 Visit Plan: Rapid strep negative Cu lture pending Rx as above New toothbrush in 24 hours Supportive care otherwise 11/09/2015 Visit Plan: Rapid strep negative Cu lture pending Rx as above New toothbrush in 24 hours Supportive care otherwise 11/09/2015 Appointment: Nayeli Anderson [address] [id number] ACUTE ILLNESS 11/09/2015 Patient Education: Patient Medication Summary Completed 11/09/2015 Referral: Maximiliano Neves WPtel: [phone] [id number] [place] Spoke with Sally at Dr. Ta's offic e. Patient is scheduled for 10/16/15 at 3:15pm. Demographics and notes have been faxed. Patient has been informed. -sp Initi ated 10/16/2015 Visit Plan: Proceed with biopsy/rem oval of right posterior neck node Mammogram ordered--US of right axilla if needed 10/10/2015 Appointment: Kristine Brambila WPtel: [phone] [facility] 10/08 confirmed ~sl FOLLOW UP 10/10/2015 Patient Education: Patient Medication Summary Completed 10/10/2015 Patient Education: [facility] - [employer] - 18-64 - Dynamic Portal ID Completed 10/10/2015 Care Plan: MAMMOGRAM SCREENING LOINC : 82266-5 Pending 10/10/2015 Visit Plan: Labs ordered - peripher al smear, tsh, b12 - see order requisition Soft tissue US of neck ordered as well to further evaluate mass to right reported to be there over a year Antibiotic as well for URI that is not resolving - rapid strep was negative Diflucan given - Dr Patty garcia and torres Discussed INR with Dr Brambila - coumadin change as above Refill written for hydros - needs to keep appt with Dr Brambila for next week for longterm management of pain 10/02/2015 Visit Plan: Labs ordered - peripher al smear, tsh, b12 - see order requisition Soft tissue US of neck ordered as well to further evaluate mass to right reported to be there over a year Antibiotic as well for URI that is not resolving - rapid strep was negative Diflucan given - Dr Patty garcia and torres Discussed INR with Dr Brambila - coumadin change as above Refill written for hydros - needs to keep appt with Dr Brambila for next week for longterm management of pain 10/02/2015 Appointment: Nayeli Anderson [address] ACUTE ILLNESS 10/02/2015 Patient Education: Patient Medication Summary Completed 10/02/2015 Patient Education: JUANCHO Shuklaj - 18-64 - Dynamic Portal ID Completed 10/02/2015 Care Plan: US EXAM OF HEAD AND NECK Pending 10/02/2015 Appointment: Kristine Brambila WPtel: [address] [place], [place] [phone] [place] LAB 09/29/2015 Patient Education: Patient Medication Summary Completed 09/29/2015 Appointment: Kristine Brambila WPtel: [address] [place], [place] [phone] [place] LAB 07/27/2015 Patient Education: Patient Medication Summary Completed 07/27/2015 Visit Plan: Trial of Savella Did no t tolerate lyrica Did not tolerate cymbalta 07/10/2015 Appointment: Kristine Brambila WPtel: [address] [place], [place] [phone] 07/10 appt confirmed cn FOLLOW UP 07/10/2015 Patient Education: Patient Medication Summary Completed 07/10/2015 Appointment: Kristine Brambila WPtel: [facility]5 [facility] UA 06/30/2015 Patient Education: Patient Medication Summary Completed 06/30/2015 Visit Plan: Recommended Vitamin E o il topically bid to area of scar. Currently taking Amoxicillin for sinusitis. Recommend Flonase nasal spray 06/27/2015 Visit Plan: Recommended Vitamin E o il topically bid to area of scar. Currently taking Amoxicillin for sinusitis. Recommend Flonase nasal spray 06/27/2015 Appointment: Meli Hatch WPtel: [address] [place], [place] [phone] ACUTE ILLNESS 06/27/2015 Patient Education: Patient Medication Summary Completed 06/27/2015 Appointment: Meli Hatch WPtel: [address] [place], [place] [phone] 06/22/15 appt confirmed and she will drea ng new insurance card cn ACUTE ILLNESS 06/26/2015 Appointment: Kristine Brambila WPtel: [address] [place], [place] [phone] [facility] 06/21/2015 Patient Education: Patient Medication Summary Completed 06/21/2015 Visit Plan: Add cymbalta at 30mg da loli Repeat PT/INR in 2weeks Recheck 1mo Awaiting ID to reschedule 06/08/2015 Visit Plan: Add cymbalta at 30mg da loli Repeat PT/INR in 2weeks Recheck 1mo Awaiting ID to reschedule 06/08/2015 Appointment: Kristine Brambila WPtel: [address] [place], [place] [phone] 06/07 lm ~sl 06/08 confirmed ~sl FOLLOW UP 06/08/2015 Patient Education: Patient Medication Summary Completed 06/08/2015 Patient Education: [facility] - Saving AutoInj - Cymbalta - 18-64 - Dynamic Portal ID Completed 06/08/2015 Patient Education: JUANCHO Azevedo AutoInj - 18-64 - Dynamic Portal ID Completed 06/08/2015 Appointment: Kristine Brambila WPtel: [phone] [id number] [place] [address] 05/31/2015 Patient Education: Patient Medication Summary Completed 05/31/2015 Visit Plan: Check PT/INR today Stop ped Lyrica due to fluid retention Has appt. scheduled at [facility] with hematology and infectious disease 06/08 Follow-up appt. in 2 weeks following appt. at . 05/24/2015 Visit Plan: Check PT/INR today Stop ped Lyrica due to fluid retention Has appt. scheduled at [facility] with hematology and infectious disease 06/08 Follow-up appt. in 2 weeks following appt. at . 05/24/2015 Appointment: Meli Hatch WPtel: [phone] NEW PATIENT 05/24/2015 Patient Education: Patient Medication Summary Completed 05/24/2015 Patient Education: [facility] Jennifer Azevedo Auto[employer]j - 18-64 - Dynamic Portal ID Completed 05/24/2015 Referral: Annamarie Melo WPtel: [facility] [address] Referral Initiated Instructions Comment . Rapid strep negati ve Culture pending Rx as above New toothbrush in 24 hours Supportive care otherwise . Rapid strep negati ve Culture pending Rx as above New toothbrush in 24 hours Supportive care otherwise . Rapid strep negati ve Culture pending Rx as above New toothbrush in 24 hours Supportive care otherwise . Supportive care. Rest, Fluids, Tylenol/Motrin prn fever or bodyaches. Notify if worsening symptoms. . Supportive care. Rest, Fluids, Tylenol/Motrin prn fever or bodyaches. Notify if worsening symptoms. . Saline nasal flush es prn. Tylenol/Motrin prn headache. Notify if persists/symptoms worsening. . Saline nasal flush es prn. Tylenol/Motrin prn headache. Notify if persists/symptoms worsening. . Trial of Savella Did not tolerate lyrica Did not tolerate cymbalta . Check PT/INR today Stopped Lyrica due to fluid retention Has appt. scheduled at [facility] with hematology and infectious disease 06/08 Follow-up appt. in 2 weeks following appt. at . . Check PT/INR today Stopped Lyrica due to fluid retention Has appt. scheduled at [facility] with hematology and infectious disease 06/08 Follow-up appt. in 2 weeks following appt. at . . Add cymbalta at 30 mg daily Repeat PT/INR in 2weeks Recheck 1mo Awaiting ID to reschedule . Add cymbalta at 30 mg daily Repeat PT/INR in 2weeks Recheck 1mo Awaiting ID to reschedule . Culture collected Infection appears very mild Start with topical rx as above Good wound care reviewed Will call with culture results Pt to call if worsening and will add oral abx . Culture collected Infection appears very mild Start with topical rx as above Good wound care reviewed Will call with culture results Pt to call if worsening and will add oral abx . 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 Recommended Vitami n E oil topically bid to area of scar. Currently taking Amoxicillin for sinusitis. Recommend Flonase nasal spray . Recommended Vitami n E oil topically bid to area of scar. Currently taking Amoxicillin for sinusitis. Recommend Flonase nasal spray . Check CMP, CBC, TS H, PT/INR today Continue current meds Patient going for botox injections for migraines . Check CMP, CBC, TS H, PT/INR today Continue current meds Patient going for botox injections for migraines . Check CMP, CBC, TS H, PT/INR today Continue current meds Patient going for botox injections for migraines . Office dip positiv e for leuks - on pyridium Rx as above Culture pending Supportive care reviewed Will call with culture results . Office dip positiv e for leuks - on pyridium Rx as above Culture pending Supportive care reviewed Will call with culture results . Supportive care. Rest, Fluids, Tylenol/Motrin prn fever or bodyaches. Notify if worsening symptoms.New toothebrush in 5 days . Supportive care. Rest, Fluids, Tylenol/Motrin prn fever or bodyaches. Notify if worsening symptoms.New toothebrush in 5 days . Supportive care. Rest, Fluids, Tylenol/Motrin prn fever or bodyaches. Notify if worsening symptoms.New toothebrush in 5 days . Supportive care. Rest, Fluids, Tylenol/Motrin prn fever or bodyaches. Notify if worsening symptoms.New toothebrush in 5 days . Supportive care. Rest, Fluids, Tylenol/Motrin prn fever or bodyaches. Notify if worsening symptoms.New toothebrush in 5 days . Rocephin 1gm IM no w EBV Antibodies (PT/INR) Same supportive information as yesterday. UC for worsening, call Friday if no improvement . Rocephin 1gm IM no w EBV Antibodies (PT/INR) Same supportive information as yesterday. UC for worsening, call Friday if no improvement . Rocephin 1gm IM no w EBV Antibodies (PT/INR) Same supportive information as yesterday. UC for worsening, call Friday if no improvement . Rocephin 1gm IM no w EBV Antibodies (PT/INR) Same supportive information as yesterday. UC for worsening, call Friday if no improvement . Proceed with biops y/removal of right posterior neck node Mammogram ordered--US of right axilla if needed
--- OUTSIDE RECORDS SUMMARY | 2020-01-28 13:27 | XMS REPORT | CCD ---
Author Author Heydi Hatch APRN Organization [facility] Address [address] [place] [address] Phone Care Team Providers Care Director Global Market Research Name Role Phone Kristine Brambila D.O., PP Unavailable CCM Unavailable Summary Purpose Interface Exchange Insurance Providers Payer name Policy type / Coverage type Covered republican ID Effective Begin Date Effective End Date Blue Cross Blue Shield Blue Cross/Bl ue Shield [id number] 2018 Un known Family History Family History data not found Social History Social History Element Codes Description Effective Dates Tobacco history SNOMED CT: 74175983 Current every day smoker 06/08/2015 Allergies, Adverse [...] ICD-9: V58.83 ICD-10: Z51.81 Active 01/21/2016 Unknown [facility] (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 ICD-9: V58.61 ICD-10: [...] 02/10/2017 Unknown Pelvic and perineal pain ICD-9: [id number] ICD-10: R10.2 Active 02/10/2017 Unknown Cervicalgia ICD-9: [...] monitoring ICD-9: V58.83 ICD-10: Z51.81 01/21/2016 Active 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 ICD-9: V58.61 ICD-10: [...] 02/10/2017 Active Pelvic and perineal pain ICD-9: [id number] ICD-10: R10.2 02/10/2017 Active Cervicalgia ICD-9: 723.1 [...] mupirocin 2 % topica l cream RxNorm: 586672 1 Application TOP TID 03/08/2019 03/14/2019 Active Vistaril 25 mg capsule RxNorm: 155922 Capsule(s) 1 Capsule(s) PO TID as needed for anxiety 03/02/2019 05/30/2019 Active cyclobenzaprine 10 m g tablet RxNorm: 241524 Tablet(s) 1 TABLET(S) PO QD NEEDED 03/02/2019 08/28/2019 Ac tive hydrocodone 10 mg-ac etaminophen 325 mg tablet RxNorm: 214972 1 Tablet(s) PO Q4-6H as needed for pain 03/02/2019 No Stop Date Active Vitamin D2 50,000 un it capsule RxNorm: 0441255 1 CAPSULE(S) PO QW 02/26/2019 08/24/2019 Active warfarin 5 mg tablet RxNorm: 134724 1 Tablet(s) PO QD 02/17/2019 04/17/2019 Active acetazolamide 125 mg tablet RxNorm: 835282 1 TABLET(S) PO BID 02/15/2019 04/15/2019 Active cholestyramine (with sugar) 4 gram oral powder RxNorm: 174314 1 UNIT DOSE PO QD 02/15/2019 04/15/2019 Ac tive penicillin V potassi um 500 mg tablet RxNorm: 930658 1 Tablet(s) PO BID 02/10/2019 02/09/2019 In active penicillin V potassi um 500 mg tablet RxNorm: 074705 1 Tablet(s) PO BID 02/10/2019 02/16/2019 In active Diflucan 150 mg tablet RxNorm: 518219 TABLET(S) 1 TABLET(S) PO QW NEEDED 02/08/2019 No Stop Date Active Anusol-HC 25 mg rect al suppository RxNorm: 7485928 1 Suppository RTL QD as needed 02/08/2019 03/09/2019 In active hydrocodone 10 mg-ac etaminophen 325 mg tablet RxNorm: 420678 1 Tablet(s) PO Q4-6H as needed for pain 02/01/2019 No Stop Date Active hydrocodone 10 mg-ac etaminophen 325 mg tablet RxNorm: 714154 1 Tablet(s) PO Q4-6H as needed for pain 02/01/2019 03/01/2019 Inactive Diflucan 150 mg tablet RxNorm: 464665 Tablet(s) TABLET(S) 1 TABLET(S) PO QW NEEDED 01/28/2019 No Stop Date Active Vistaril 25 mg capsule RxNorm: 234776 1 Capsule(s) PO TID 01/27/2019 07/25/2019 Active ProAir HFA 90 mcg/ac tuation aerosol inhaler RxNorm: 128650 2 Puff(s) INH Q4H as needed 01/20/2019 No Stop Date Active Tessalon Perles 100 mg capsule RxNorm: 412584 1 Capsule(s) PO TID a s needed for cough 01/20/2019 No Stop Date Active doxycycline hyclate 100 mg capsule RxNorm: 6339429 1 Capsule(s) PO BID 01/20/2019 01/19/2019 In active doxycycline hyclate 100 mg capsule RxNorm: 6601999 1 Capsule(s) PO BID 01/20/2019 01/26/2019 In active Coumadin 5 mg tablet RxNorm: 205467 1 Tablet(s) PO QD (on Mon, , Fri, , Fri and Sun) 01/05/2019 06/09/2019 Active Generic For:COUMADIN 5MG TAB 05/25/2018 3:20:45 PM N O T I C E Last quantity doesn't match original quantity amoxicillin 500 mg c apsule RxNorm: 416140 1 Capsule(s) PO BID 01/05/2019 01/14/2019 Inactive amoxicillin 500 mg c apsule RxNorm: 857853 1 Capsule(s) PO BID 01/05/2019 01/04/2019 Inactive hydrocodone 10 mg-ac etaminophen 325 mg tablet RxNorm: 819134 1 Tablet(s) PO Q4-6H as needed for pain 01/01/2019 01/31/2019 Inactive Coumadin 5 mg tablet RxNorm: 816267 Tablet(s) TAKE 1 TABLET(S) BY MOUTH FRI, FRI, FRI, Friday12/23/2018 01/04/2019 Inactive Generic For:COUMADIN 5MG TA B 05/25/2018 3:20:45 PM N O T I C E Last quantity doesn't match original quantity Diflucan 150 mg tablet RxNorm: 573801 Tablet(s) TABLET(S) 1 TABLET(S) PO QW NEEDED 12/23/2018 01/27/2019 Inactive cyclobenzaprine 10 m g tablet RxNorm: 871824 1 TABLET(S) PO QD NEEDED 12/23/2018 03/01/2019 In active Vitamin D2 50,000 un it capsule RxNorm: 0465563 1 Capsule(s) PO QW 12/04/2018 02/25/2019 Inactive Medrol (Juan Francisco) 4 mg ta blets in a dose pack RxNorm: 848918 Tablet(s) PO as direc liane 12/04/2018 12/03/2018 In active Vitamin D2 50,000 un it capsule RxNorm: 0124984 1 Capsule(s) PO QW 12/04/2018 12/03/2018 Inactive Medrol (Juan Francisco) 4 mg ta blets in a dose pack RxNorm: 970046 Tablet(s) PO as direc liane 12/04/2018 01/19/2019 In active Zithromax Z-Juan Francisco 250 mg tablet RxNorm: 565966 Tablet(s) PO take as directed 12/02/2018 02/16/2019 In active Coumadin 5 mg tablet RxNorm: 106440 Tablet(s) TAKE 1 TABLET(S) BY MOUTH FRI, FRI, FRI, Friday11/30/2018 12/22/2018 Inactive Generic For:COUMADIN 5MG TA B 05/25/2018 3:20:45 PM N O T I C E Last quantity doesn't match original quantity Vistaril 25 mg capsule RxNorm: 205210 Capsule(s) 1 Capsule(s) PO TID as needed for anxiety 11/30/2018 02/27/2019 Inactive Diflucan 150 mg tablet RxNorm: 021721 Tablet(s) TABLET(S) 1 TABLET(S) PO QW NEEDED 11/26/2018 12/22/2018 Inactive cholestyramine (with sugar) 4 gram oral powder RxNorm: 410518 1 UNIT DOSE PO QD 11/24/2018 02/14/2019 In active acetazolamide 125 mg tablet RxNorm: 630100 1 Tablet(s) PO BID 11/24/2018 02/14/2019 Inactive cyclobenzaprine 10 m g tablet RxNorm: 972040 1 Tablet(s) PO QD as needed 11/17/2018 12/22/2018 In active hydrocodone 10 mg-ac etaminophen 325 mg tablet RxNorm: 728041 1 Tablet(s) PO Q4-6H as needed for pain 11/05/2018 01/31/2019 Inactive acetazolamide 125 mg tablet RxNorm: 684074 1 TABLET(S) PO BID 10/26/2018 11/23/2018 Inactive cholestyramine (with sugar) 4 gram oral powder RxNorm: 661396 1 UNIT DOSE PO QD 10/26/2018 11/23/2018 In active Coumadin 5 mg tablet RxNorm: 884829 TAKE 1 TABLET(S) BY MOUTH FRI, FRI, FRI, Friday10/26/2018 11/29/2018 Inactive Generic For:COUMADIN 5MG TAB 05/25/2018 3:20:45 PM N O T I C E Last quantity doesn't match original quantity Diflucan 150 mg tablet RxNorm: 614426 TABLET(S) 1 TABLET(S) PO QW NEEDED 10/26/2018 11/25/2018 In active hydrocodone 10 mg-ac etaminophen 325 mg tablet RxNorm: 886788 1 Tablet(s) PO Q4-6H as needed for pain 10/08/2018 11/04/2018 Inactive acetazolamide 125 mg tablet RxNorm: 779358 1 Tablet(s) PO BID 09/24/2018 10/23/2018 Inactive Coumadin 5 mg tablet RxNorm: 102646 TAKE 1 TABLET(S) BY MOUTH MON, FRI, FRI, Friday09/24/2018 10/25/2018 Inactive Generic For:COUMADIN 5MG TAB 05/25/2018 3:20:45 PM N O T I C E Last quantity doesn't match original quantity Diflucan 150 mg tablet RxNorm: 994066 Tablet(s) 1 Tablet(s) PO QW as needed 09/24/2018 10/25/2018 In active cyclobenzaprine 10 m g tablet RxNorm: 243142 1 Tablet(s) PO QD as needed 09/24/2018 11/16/2018 In active Vistaril 25 mg capsule RxNorm: 356690 1 Capsule(s) PO TID as needed for anxiet y 09/24/2018 11/29/2018 In active cholestyramine (with sugar) 4 gram oral powder RxNorm: 925927 1 Unit Dose PO QD 09/24/2018 10/23/2018 In active Pyridium 200 mg tablet RxNorm: 5762721 1 Tablet(s) PO TID 09/10/2018 09/19/2018 Inactive Pyridium 200 mg tablet RxNorm: 7938624 1 Tablet(s) PO TID 09/10/2018 09/09/2018 Inactive hydrocodone 10 mg-ac etaminophen 325 mg tablet RxNorm: 750160 1 Tablet(s) PO Q4-6H as needed for pain 09/08/2018 10/07/2018 Inactive cefdinir 300 mg capsule RxNorm: 132212 1 Capsule(s) PO BID 09/08/2018 09/21/2018 Inactive hydrocodone 10 mg-ac etaminophen 325 mg tablet RxNorm: 518425 1 Tablet(s) PO Q4-6H as needed for pain 08/13/2018 09/07/2018 Inactive cyclobenzaprine 10 m g tablet RxNorm: 537378 1 Tablet(s) PO QD as needed 07/23/2018 09/23/2018 In active Diflucan 150 mg tablet RxNorm: 008801 Tablet(s) 1 Tablet(s) PO QW as needed 07/23/2018 09/23/2018 In active Ciprodex 0.3 %-0.1 % ear drops,suspension RxNorm: 426754 4 Drop(s) left otic ( ear) BID 07/23/2018 07/29/2018 Inactive hydrocodone 10 mg-ac etaminophen 325 mg tablet RxNorm: 081242 1 Tablet(s) PO Q4-6H as needed for pain 07/16/2018 08/12/2018 Inactive penicillin V potassi um 500 mg tablet RxNorm: 297093 1 Tablet(s) PO Q6H 07/08/2018 07/17/2018 In active cyclobenzaprine 10 m g tablet RxNorm: 287485 1 Tablet(s) PO QD as needed 06/22/2018 07/22/2018 In active Vistaril 25 mg capsule RxNorm: 833166 1 Capsule(s) PO TID as needed for anxiet y 06/22/2018 09/23/2018 In active cholestyramine (with sugar) 4 gram oral powder RxNorm: 333637 1 Unit Dose PO QD 06/22/2018 09/23/2018 In active hydrocodone 10 mg-ac etaminophen 325 mg tablet RxNorm: 345834 1 Tablet(s) PO Q4-6H as needed for pain 06/17/2018 07/15/2018 Inactive cefdinir 300 mg capsule RxNorm: 770034 1 Capsule(s) PO BID 06/02/2018 06/11/2018 Inactive Diflucan 150 mg tablet RxNorm: 038441 Tablet(s) 1 Tablet(s) PO QW as needed 06/02/2018 07/22/2018 In active Coumadin 5 mg tablet RxNorm: 949080 TAKE 1 TABLET(S) BY MOUTH FRI, FRI, FRI, Friday05/25/2018 07/15/2018 Inactive Generic For:COUMADIN 5MG TAB 05/25/2018 3:20:45 PM N O T I C E Last quantity doesn't match original quantity Imitrex 50 mg tablet RxNorm: 631684 Tablet(s) 1 Tablet(s) PO at headache. re peat in 2 hours if no relief. no more than 2 tabs per day 05/19/2018 No Stop Date Active cholestyramine (with sugar) 4 gram oral powder RxNorm: 833855 1 Unit Dose PO QD 05/19/2018 11/14/2018 In active Vistaril 25 mg capsule RxNorm: 718265 1 Capsule(s) PO TID 05/19/2018 11/14/2018 Inactive Coumadin 5 mg tablet RxNorm: 703779 Tablet(s) TAKE 1 TABLET(S) BY MOUTH FRI, FRI, FRI, Friday05/19/2018 05/24/2018 Inactive Generic For:COUMADIN 5MG TA B N O T I C E Last quantity doesn't match original quantity acetazolamide 125 mg tablet RxNorm: 467558 1 Tablet(s) PO BID 05/19/2018 09/23/2018 Inactive cyclobenzaprine 10 m g tablet RxNorm: 445801 1 Tablet(s) PO QD as needed 05/19/2018 11/17/2018 In active Coumadin 7.5 mg tablet RxNorm: 459267 1 Tablet(s) PO QD , , 05/19/2018 01/04/2019 In active ketorolac 10 mg tablet RxNorm: 118621 1 Tablet(s) PO QHS as needed 05/11/2018 No Stop Date Active promethazine 12.5 mg tablet RxNorm: 011828 1 Tablet(s) PO Q6H as needed 04/23/2018 04/22/2018 In active acetazolamide 125 mg tablet RxNorm: 328562 1 Tablet(s) PO BID 04/23/2018 05/18/2018 Inactive Coumadin 5 mg tablet RxNorm: 018152 TAKE 1 TABLET(S) BY MOUTH FRI, FRI, FRI, Friday04/23/2018 05/18/2018 Inactive Generic For:COUMADIN 5MG TAB N O T I C E Last quantity doesn't match original quantity Imitrex 50 mg tablet RxNorm: 638554 1 Tablet(s) PO at headache. repeat in 2 hours if no relief. no more than 2 tabs per day 04/23/2018 05/18/2018 Inactive cyclobenzaprine 10 m g tablet RxNorm: 274997 1 Tablet(s) PO QD as needed 04/23/2018 05/18/2018 In active clindamycin HCl 300 mg capsule RxNorm: 596178 1 Capsule(s) PO TID 04/02/2018 04/11/2018 Inactive hydrocodone 10 mg-ac etaminophen 325 mg tablet RxNorm: 097231 1 Tablet(s) PO Q4-6H as needed for pain 03/24/2018 06/16/2018 Inactive promethazine 12.5 mg tablet RxNorm: 185664 1 Tablet(s) PO Q6H 03/23/2018 04/23/2018 Inactive Imitrex 50 mg tablet RxNorm: 569579 1 Tablet(s) PO at headache. repeat in 2 hours if no relief. no more than 2 tabs per day 03/23/2018 04/22/2018 Inactive Diflucan 150 mg tablet RxNorm: 615097 1 Tablet(s) PO QW as needed 03/23/2018 06/01/2018 Inactive Coumadin 5 mg tablet RxNorm: 254827 Tablet(s) 1 Tablet(s) PO Mon, Wed, Fri, Sun 03/23/2018 04/22/2018 In active Imitrex 100 mg tablet RxNorm: 534347 Tablet(s) PO take one tablet at sign of headache and repeat in 2 hours if ineffective 03/16/2018 04/01/2018 Inactive ondansetron HCl 4 mg tablet RxNorm: 734646 1 Tablet(s) PO Q4H as needed for nausea 02/24/2018 04/01/2018 In active hydrocodone 10 mg-ac etaminophen 325 mg tablet RxNorm: 449986 1 Tablet(s) PO Q4-6H as needed for pain 02/24/2018 03/23/2018 Inactive Coumadin 5 mg tablet RxNorm: 010196 Tablet(s) 1 Tablet(s) PO Mon, Wed, Fri, Sun 02/20/2018 03/22/2018 In active promethazine 12.5 mg tablet RxNorm: 282289 1 Tablet(s) PO Q6H 02/20/2018 03/22/2018 Inactive Pepcid 40 mg tablet RxNorm: 167232 1 Tablet(s) PO BID for stomach 02/16/2018 03/17/2018 In active Flagyl 500 mg tablet RxNorm: 203662 1 Tablet(s) PO TID 02/16/2018 02/25/2018 Inactive Imitrex 50 mg tablet RxNorm: 574275 1 Tablet(s) PO at headache. repeat in 2 hours if no relief. no more than 2 tabs per day 01/27/2018 03/15/2018 Inactive Coumadin 5 mg tablet RxNorm: 422341 1 Tablet(s) PO Mon, Wed, Fri, Sun 01/27/2018 02/20/2018 In active amoxicillin 875 mg t ablet RxNorm: 621876 1 Tablet(s) PO BID 01/26/2018 02/04/2018 Inactive Imitrex 50 mg tablet RxNorm: 079990 1 Tablet(s) PO at headache. repeat in 2 hours if no relief. no more than 2 tabs per day 01/26/2018 03/22/2018 Inactive cyclobenzaprine 10 m g tablet RxNorm: 431438 1 Tablet(s) PO QD as needed 01/23/2018 03/23/2018 In active promethazine 12.5 mg tablet RxNorm: 346573 1 Tablet(s) PO Q6H 01/23/2018 02/19/2018 Inactive Diflucan 150 mg tablet RxNorm: 276072 1 Tablet(s) PO QW as needed 01/22/2018 03/22/2018 Inactive acetazolamide 125 mg tablet RxNorm: 118101 1 Tablet(s) PO BID 01/22/2018 04/21/2018 Inactive Imitrex 50 mg tablet RxNorm: 717155 1 Tablet(s) PO at headache. repeat in 2 hours if no relief. no more than 2 tabs per day 01/02/2018 01/25/2018 Inactive Ciprodex 0.3 %-0.1 % ear drops,suspension RxNorm: 794957 4 Drop(s) otic (ear) BID 01/01/2018 01/07/2018 In active Coumadin 7.5 mg tablet RxNorm: 673730 1 Tablet(s) PO QD , , 12/29/2017 05/18/2018 In active Coumadin 5 mg tablet RxNorm: 608417 1 Tablet(s) PO Mon, Wed, Fri, Sun 12/29/2017 01/26/2018 In active cyclobenzaprine 10 m g tablet RxNorm: 013993 1 Tablet(s) PO QD as needed 12/29/2017 01/22/2018 In active clindamycin HCl 300 mg capsule RxNorm: 162512 1 Capsule(s) PO TID 12/26/2017 12/25/2017 Inactive Imitrex 50 mg tablet RxNorm: 520485 1 Tablet(s) PO at headache. repeat in 2 hours if no relief. no more than 2 tabs per day 12/26/2017 01/01/2018 Inactive clindamycin HCl 300 mg capsule RxNorm: 491092 1 Capsule(s) PO TID 12/26/2017 01/04/2018 Inactive Zithromax Z-Juan Francisco 250 mg tablet RxNorm: 077314 Tablet(s) PO take as directed 12/25/2017 12/25/2017 In active promethazine 12.5 mg tablet RxNorm: 639496 1 Tablet(s) PO Q6H 12/25/2017 01/22/2018 Inactive clindamycin HCl 300 mg capsule RxNorm: 655879 1 Capsule(s) PO TID 12/11/2017 12/17/2017 Inactive Vistaril 25 mg capsule RxNorm: 411231 1 Capsule(s) PO TID as needed for anxiet y 12/04/2017 05/18/2018 In active cholestyramine (with sugar) 4 gram oral powder RxNorm: 787305 1 Unit Dose PO QD 12/04/2017 05/18/2018 In active Coumadin 7.5 mg tablet RxNorm: 871961 1 Tablet(s) PO QD 12/04/2017 12/28/2017 Inactive Coumadin 5 mg tablet RxNorm: 984344 1 Tablet(s) PO Friday through Friday12/04/2017 12/28/2017 In active hydrocodone 10 mg-ac etaminophen 325 mg tablet RxNorm: 632088 1 Tablet(s) PO Q4-6H as needed for pain 12/01/2017 02/23/2018 Inactive hydrocodone 10 mg-ac etaminophen 325 mg tablet RxNorm: 714440 1 Tablet(s) PO Q4-6H as needed for pain 11/03/2017 11/30/2017 Inactive cyclobenzaprine 10 m g tablet RxNorm: 750571 1 Tablet(s) PO QD as needed 10/30/2017 12/28/2017 In active cholestyramine (with sugar) 4 gram oral powder RxNorm: 869182 1 Unit Dose PO QD 10/30/2017 11/28/2017 In active amoxicillin 875 mg t ablet RxNorm: 477767 1 Tablet(s) PO BID 10/08/2017 10/07/2017 Inactive amoxicillin 875 mg t ablet RxNorm: 906677 1 Tablet(s) PO BID 10/08/2017 10/17/2017 Inactive penicillin V potassi um 500 mg tablet RxNorm: 914072 1 Tablet(s) PO BID 10/06/2017 10/07/2017 In active hydrocodone 10 mg-ac etaminophen 325 mg tablet RxNorm: 887419 1 Tablet(s) PO Q4-6H as needed for pain 10/06/2017 11/02/2017 Inactive hydrocodone 10 mg-ac etaminophen 325 mg tablet RxNorm: 684209 1 Tablet(s) PO Q4-6H as needed for pain 10/06/2017 12/31/2018 Inactive Vigamox 0.5 % eye drops RxNorm: 189664 1 Drop(s) ophthalmic (eye) TID ONLY ADMI NISTER IF INFECTION 10/03/2017 10/02/2017 Inactive Vigamox 0.5 % eye drops RxNorm: 675276 1 Drop(s) ophthalmic (eye) TID ONLY ADMI NISTER IF INFECTION 10/03/2017 10/09/2017 Inactive cholestyramine (with sugar) 4 gram oral powder RxNorm: 341772 1 Unit Dose PO QD 09/23/2017 10/30/2017 In active acetazolamide 125 mg tablet RxNorm: 764379 1 Tablet(s) PO BID 09/23/2017 12/21/2017 Inactive Coumadin 5 mg tablet RxNorm: 995130 1 Tablet(s) PO QD FRIDAY THROUGH Friday09/17/2017 11/04/2017 In active mupirocin 2 % topica l ointment RxNorm: 537750 1 Application TOP TID 09/10/2017 11/04/2017 Inactive hydrocodone 10 mg-ac etaminophen 325 mg tablet RxNorm: 816721 1 Tablet(s) PO Q4-6H as needed for pain 09/08/2017 10/05/2017 Inactive Questran 4 gram powd er for susp in a packet RxNorm: 359982 MIX ONE PACKET IN 6 O UNCES OF APPLE SAUCE OR OTHER SOFT FOOD AND EAT ONCE DAILY 09/02/2017 11/04/2017 Inactive Diflucan 150 mg tablet RxNorm: 241741 1 Tablet(s) PO QW as needed 08/14/2017 01/21/2018 Inactive hydrocodone 10 mg-ac etaminophen 325 mg tablet RxNorm: 704367 1 Tablet(s) PO Q4-6H as needed for pain 08/11/2017 09/07/2017 Inactive Tamiflu 75 mg capsule RxNorm: 996646 1 Capsule(s) PO QD 08/11/2017 08/10/2017 Inactive Tamiflu 75 mg capsule RxNorm: 274425 1 Capsule(s) PO QD 08/11/2017 08/20/2017 Inactive Coumadin 5 mg tablet RxNorm: 594931 1 Tablet(s) PO QD FRIDAY THROUGH Friday07/22/2017 09/16/2017 In active Coumadin 5 mg tablet RxNorm: 654015 TAKE ONE TABLET BY MOUTH ONCE DAILY THROUGH Friday07/16/2017 07/21/2017 Inactive cyclobenzaprine 10 m g tablet RxNorm: 515924 1 Tablet(s) PO QD as needed 07/15/2017 10/30/2017 In active hydrocodone 10 mg-ac etaminophen 325 mg tablet RxNorm: 034448 1 Tablet(s) PO Q4-6H as needed for pain 07/14/2017 08/10/2017 Inactive warfarin 5 mg tablet RxNorm: 147306 1 Tablet(s) PO Fri Sat Sun-patibindu nt is due for PT/INR 06/18/2017 02/16/2019 Inactive Questran Light 4 gra m powder for susp in a packet RxNorm: 6746820 1 PO QD 06/18/2017 11/04/2017 In active cyclobenzaprine 10 m g tablet RxNorm: 506276 1 Tablet(s) PO QD as needed 06/18/2017 07/14/2017 In active hydrocodone 10 mg-ac etaminophen 325 mg tablet RxNorm: 190040 1 Tablet(s) PO Q4-6H as needed for pain 06/18/2017 07/13/2017 Inactive Lunesta 1 mg tablet RxNorm: 637540 1 Tablet(s) PO QHS as needed 05/27/2017 06/25/2017 Inactive Zithromax Z-Juan Francisco 250 mg tablet RxNorm: 049828 1 Tablet(s) PO Take a s directed 05/27/2017 11/04/2017 In active ProAir HFA 90 mcg/ac tuation aerosol inhaler RxNorm: 690978 2 Puff(s) INH Q4H 05/27/2017 01/19/2019 In active ProAir HFA 90 mcg/ac tuation aerosol inhaler RxNorm: 064164 2 Puff(s) INH Q4H 05/27/2017 05/26/2017 In active promethazine 6.25 mg -codeine 10 mg/5 mL syrup RxNorm: 416966 5 Milliliter(s) PO Q4 H as needed 05/27/2017 11/04/2017 Inactive Diflucan 150 mg tablet RxNorm: 971087 1 Tablet(s) PO QW as needed 05/26/2017 05/25/2017 Inactive cyclobenzaprine 10 m g tablet RxNorm: 156101 1 Tablet(s) PO QD as needed 05/20/2017 06/18/2017 In active Lunesta 2 mg tablet RxNorm: 215619 1 Tablet(s) PO QHS 05/20/2017 05/27/2017 Inactive Zithromax Z-Juan Francisco 250 mg tablet RxNorm: 867248 Tablet(s) PO As Direc liane 05/12/2017 05/19/2017 In active cyclobenzaprine 5 mg tablet RxNorm: 475142 1 Tablet(s) PO QPM 03/28/2017 05/19/2017 Inactive Vistaril 25 mg capsule RxNorm: 491008 1 Capsule(s) PO TID as needed for anxiet y 03/28/2017 09/23/2017 In active Questran 4 gram powd er for susp in a packet RxNorm: 330483 1 Unit(s) PO QD 03/06/2017 06/18/2017 In active Cipro 500 mg tablet RxNorm: 548133 1 Tablet(s) PO BID 02/27/2017 02/26/2017 Inactive Pyridium 200 mg tablet RxNorm: 2511693 1 Tablet(s) PO TID for bladder spasms 02/27/2017 03/31/2017 In active Cipro 500 mg tablet RxNorm: 683720 1 Tablet(s) PO BID 02/27/2017 03/05/2017 Inactive Levsin 0.125 mg tablet RxNorm: 8530663 1 Tablet(s) PO QID as needed for spasm 02/25/2017 11/04/2017 In active tamsulosin 0.4 mg ca psule RxNorm: 797679 1 Capsule(s) PO QPM 02/25/2017 03/26/2017 Inactive tamsulosin 0.4 mg ca psule RxNorm: 507286 1 Capsule(s) PO QPM 02/25/2017 02/24/2017 Inactive Pyridium 100 mg tablet RxNorm: 5026938 1 Tablet(s) PO TID as needed 02/21/2017 03/31/2017 In active acetazolamide 125 mg tablet RxNorm: 234832 1 Tablet(s) PO BID 02/07/2017 09/23/2017 Inactive Questran 4 gram powd er for susp in a packet RxNorm: 601952 1 Unit(s) PO QD 02/06/2017 03/06/2017 In active cyclobenzaprine 5 mg tablet RxNorm: 461253 1 Tablet(s) PO QPM 02/05/2017 03/27/2017 Inactive BuSpar 5 mg tablet RxNorm: 571661 1 Tablet(s) PO BID 02/03/2017 03/31/2017 Inactive Diflucan 150 mg tablet RxNorm: 845783 1 Tablet(s) PO QW as needed 01/15/2017 05/26/2017 Inactive Valtrex 1 gram tablet RxNorm: 457246 1 Tablet(s) PO TID 01/13/2017 01/19/2017 Inactive Vistaril 25 mg capsule RxNorm: 681118 1 Capsule(s) PO TID as needed for anxiet y 01/13/2017 03/27/2017 In active hydrocodone 10 mg-ac etaminophen 325 mg tablet RxNorm: 333362 1 Tablet(s) PO Q4-6H as needed for pain 01/13/2017 06/17/2017 Inactive Questran 4 gram powd er for susp in a packet RxNorm: 001644 1 Unit(s) PO QD 01/13/2017 09/23/2017 In active acetazolamide 125 mg tablet RxNorm: 313745 1 Tablet(s) PO BID 01/13/2017 02/06/2017 Inactive methotrexate (PF) 20 mg/0.4 mL subcutaneous auto-injector RxNorm: 3903440 Milliliter(s) SQ QW 12/26/2016 01/05/2017 Inactive Compazine 10 mg tablet RxNorm: 997106 1 Tablet(s) PO TID as needed for nausea 12/18/2016 11/04/2017 In active hydrocodone 10 mg-ac etaminophen 325 mg tablet RxNorm: 404862 1 Tablet(s) PO Q4-6H as needed for pain 12/17/2016 01/12/2017 Inactive Questran 4 gram powd er for susp in a packet RxNorm: 379964 1 Unit(s) PO QD 12/17/2016 01/13/2017 In active cyclobenzaprine 5 mg tablet RxNorm: 417757 1 Tablet(s) PO QPM 12/17/2016 02/05/2017 Inactive Questran Light 4 gra m powder for susp in a packet RxNorm: 4034046 1 PO QD 11/29/2016 06/17/2017 In active Zofran ODT 4 mg disi ntegrating tablet RxNorm: 406048 1 Tablet(s) PO Q4H as needed for nausea 11/29/2016 12/17/2016 Inactive methotrexate sodium 2.5 mg tablet RxNorm: 240591 4 Tablet(s) PO week 1 then 5 tablets po week 2 then 6 tablets weekly 11/27/2016 12/25/2016 Inactive warfarin 7.5 mg tablet RxNorm: 767796 1 Tablet(s) PO three times weekly 11/14/2016 03/31/2017 In active warfarin 7.5 mg tablet RxNorm: 705612 1 Tablet(s) PO three times weekly 11/13/2016 11/13/2016 In active Diflucan 150 mg tablet RxNorm: 693699 1 Tablet(s) PO QW as needed 11/05/2016 01/14/2017 Inactive Vistaril 25 mg capsule RxNorm: 254181 1 Capsule(s) PO TID as needed for anxiet y 11/04/2016 11/03/2016 In active Coumadin 5 mg tablet RxNorm: 120242 1 Tablet(s) PO Friday through Friday11/04/2016 06/18/2017 In active acetazolamide 125 mg tablet RxNorm: 174301 1 Tablet(s) PO BID 11/04/2016 01/13/2017 Inactive sumatriptan 100 mg t ablet RxNorm: 158891 1 Tablet(s) PO at hea dache onset. May repeat in 2 hours if headache remains 11/04/2016 11/04/2017 Inactive Vistaril 25 mg capsule RxNorm: 461067 1 Capsule(s) PO TID as needed for anxiet y 11/04/2016 01/12/2017 In active hydrocodone 10 mg-ac etaminophen 325 mg tablet RxNorm: 349006 1 Tablet(s) PO Q4-6H as needed for pain 11/04/2016 12/16/2016 Inactive Coumadin 5 mg tablet RxNorm: 897882 TAKE ONE TABLET BY MOUTH ON SUN., MON., WED., AND FRI., AND TAKE ONE AND ONE-HALF TABLETS TUE., TH., AND 10/16/2016 10/25/2016 In active Coumadin 5 mg tablet RxNorm: 364875 1 Tablet(s) PO Friday through Friday10/15/2016 11/03/2016 In active hydrocodone 10 mg-ac etaminophen 325 mg tablet RxNorm: 229078 1 Tablet(s) PO Q4-6H as needed for pain 10/14/2016 11/03/2016 Inactive hydrocodone 10 mg-ac etaminophen 325 mg tablet RxNorm: 414197 1 Tablet(s) PO Q4-6H as needed for pain 09/20/2016 10/13/2016 Inactive warfarin 7.5 mg tablet RxNorm: 395123 1 Tablet(s) PO three times weekly 09/20/2016 11/12/2016 In active Diflucan 150 mg tablet RxNorm: 295693 1 Tablet(s) PO QW as needed 08/20/2016 11/04/2016 Inactive acetazolamide 125 mg tablet RxNorm: 962603 1 Tablet(s) PO BID 08/20/2016 11/04/2016 Inactive Diflucan 150 mg tablet RxNorm: 759059 1 Tablet(s) PO QW as needed 08/20/2016 08/19/2016 Inactive Vistaril 25 mg capsule RxNorm: 760535 Capsule(s) TAKE ONE CAPSULE BY MOUTH THR EE TIMES DAILY NEEDED FOR ANXIETY 08/19/2016 11/04/2016 Inactive hydrocodone 10 mg-ac etaminophen 325 mg tablet RxNorm: 738003 1 Tablet(s) PO Q4-6H as needed for pain 08/05/2016 09/19/2016 Inactive Diflucan 150 mg tablet RxNorm: 951451 1 Tablet(s) PO QW as needed 07/19/2016 08/19/2016 Inactive tizanidine 4 mg tablet RxNorm: 771224 1-2 Tablet(s) PO QHS as needed for muscl e spasm and sleep 06/03/2016 06/10/2016 Inactive Questran Light 4 gra m powder for susp in a packet RxNorm: 9404423 1 PO QD 05/14/2016 08/11/2016 In active Macrobid 100 mg capsule RxNorm: 310643 1 Capsule(s) PO BID 04/23/2016 05/02/2016 Inactive mupirocin 2 % topica l ointment RxNorm: 938887 Apply topically to af fected area 2-3 times daily 04/17/2016 07/07/2016 Inactive Vistaril 25 mg capsule RxNorm: 458050 TAKE ONE CAPSULE BY MOUTH THREE TIMES DA LOLI NEEDED FOR ANXIETY 04/17/2016 11/04/2016 Inactive Diflucan 150 mg tablet RxNorm: 143726 1 Tablet(s) PO QW as needed 04/16/2016 07/18/2016 Inactive cyclobenzaprine 5 mg tablet RxNorm: 428973 TAKE ONE TABLET BY [facility] ONCE DAILY IN THE EVENING 03/25/2016 12/17/2016 Inactive Pyridium 100 mg tablet RxNorm: 7671184 1 Tablet(s) PO TID as needed 03/20/2016 03/19/2016 In active Diflucan 150 mg tablet RxNorm: 094650 1 Tablet(s) PO QW as needed 03/20/2016 04/15/2016 Inactive Pyridium 100 mg tablet RxNorm: 5557780 1 Tablet(s) PO TID as needed 03/20/2016 08/26/2016 In active Diflucan 150 mg tablet RxNorm: 194010 1 Tablet(s) PO QW as needed 03/19/2016 03/19/2016 Inactive Coumadin 7.5 mg tablet RxNorm: 435460 1 Tablet(s) PO QD 03/14/2016 05/12/2016 Inactive acetazolamide 125 mg tablet RxNorm: 563439 1 Tablet(s) PO BID 02/28/2016 08/20/2016 Inactive Coumadin 5 mg tablet RxNorm: 968342 1 TABLET(S) PO QD THREE TIMES A WEEK AND 1 1/2 TAB (7.5MG) FOUR TIMES A WEEK 02/28/2016 03/13/2016 Inactive Questran Light 4 gra m powder for susp in a packet RxNorm: 4942012 1 PO QD 02/13/2016 05/12/2016 In active Diflucan 150 mg tablet RxNorm: 482826 1 Tablet(s) PO QW as needed 01/19/2016 03/11/2016 Inactive Diflucan 150 mg tablet RxNorm: 998318 1 Tablet(s) PO QW as needed 01/18/2016 01/18/2016 Inactive promethazine 25 mg t ablet RxNorm: 503143 1 Tablet(s) PO Q4H as needed for nausea 12/05/2015 12/17/2016 In active Imitrex 100 mg tablet RxNorm: 161431 1 Tablet(s) PO at headache onset and may repeat in 2 hours if needed 12/05/2015 03/31/2017 Inactive Diflucan 150 mg tablet RxNorm: 328435 1 Tablet(s) PO QW as needed 11/24/2015 01/17/2016 Inactive Diflucan 150 mg tablet RxNorm: 910939 1 Tablet(s) PO QW as needed 11/21/2015 11/23/2015 Inactive Coumadin 5 mg tablet RxNorm: 411721 1 Tablet(s) PO QD three times a week and 1 1/2 tab (7.5mg) four times a week 11/13/2015 02/01/2016 Inactive Questran Light 4 gra m powder for susp in a packet RxNorm: 038187 1 PO QD 11/13/2015 02/10/2016 In active acetazolamide 125 mg tablet RxNorm: 659294 1 Tablet(s) PO BID 11/13/2015 02/10/2016 Inactive amoxicillin 875 mg t ablet RxNorm: 797517 1 Tablet(s) PO BID 11/09/2015 11/18/2015 Inactive Coumadin 7.5 mg tablet RxNorm: 287936 1 Tablet(s) PO on and 10/26/2015 10/25/2015 In active Coumadin 7.5 mg tablet RxNorm: 750089 1 Tablet(s) PO on and 10/26/2015 11/12/2015 In active Coumadin 5 mg tablet RxNorm: 253865 1 Tablet(s) PO Friday, Friday, Friday and Friday. 1.5 tablets Friday, and Friday. 10/26/2015 10/25/2015 Inactive Coumadin 5 mg tablet RxNorm: 418938 1 Tablet(s) PO Friday, Friday, Friday , and Friday. Take 1 1/2 on Friday, and Friday10/26/2015 11/12/2015 Inactive Coumadin 7.5 mg tablet RxNorm: 265031 1 Tablet(s) PO on and 10/26/2015 10/26/2015 In active Coumadin 5 mg tablet RxNorm: 337442 1 Tablet(s) PO Friday, Friday, Friday and Friday. 1.5 tablets Friday, and Friday. 10/26/2015 02/14/2016 Inactive Vistaril 25 mg capsule RxNorm: 083847 1 Capsule(s) PO TID as needed for anxiet y 10/10/2015 04/06/2016 In active cyclobenzaprine 5 mg tablet RxNorm: 042287 1 Tablet(s) PO QPM 10/10/2015 03/24/2016 Inactive Vistaril 25 mg capsule RxNorm: 899093 1 Capsule(s) PO TID as needed for anxiet y 10/10/2015 10/09/2015 In active cyclobenzaprine 5 mg tablet RxNorm: 675976 1 Tablet(s) PO QPM 10/10/2015 10/09/2015 Inactive Coumadin 5 mg tablet RxNorm: 408754 1 Tablet(s) PO Friday, Friday, Friday and Friday. 1.5 tablets Friday, and Friday. 10/02/2015 10/01/2015 Inactive Coumadin 5 mg tablet RxNorm: 226070 1 Tablet(s) PO Friday, Friday, Friday and Friday. 1.5 tablets Friday, and Friday. 10/02/2015 10/25/2015 Inactive amoxicillin 500 mg t ablet RxNorm: 468839 1 Tablet(s) PO TID 10/02/2015 10/11/2015 Inactive hydrocodone 10 mg-ac etaminophen 325 mg tablet RxNorm: 044412 1 Tablet(s) PO Q4-6H as needed for pain 10/02/2015 08/04/2016 Inactive Diflucan 150 mg tablet RxNorm: 306024 1 Tablet(s) PO QW as needed 10/02/2015 10/01/2015 Inactive amoxicillin 500 mg t ablet RxNorm: 869343 1 Tablet(s) PO TID 10/02/2015 10/01/2015 Inactive Diflucan 150 mg tablet RxNorm: 079506 1 Tablet(s) PO QW as needed 10/02/2015 10/09/2015 Inactive Coumadin 5 mg tablet RxNorm: 086553 1 Tablet(s) PO Mon.,Fri.,Fri., Sat. and Sun. 09/14/2015 10/01/2015 Inactive acetazolamide 125 mg tablet RxNorm: 167254 1 Tablet(s) PO BID 09/14/2015 11/12/2015 Inactive hydrocodone 10 mg-ac etaminophen 325 mg tablet RxNorm: 275706 1 Tablet(s) PO Q4-6H as needed for pain 09/01/2015 10/01/2015 Inactive Vistaril 25 mg capsule RxNorm: 919459 1 Capsule(s) PO TID as needed for anxiet y 08/24/2015 09/22/2015 In active baclofen 10 mg tablet RxNorm: 451710 1/2 Tablet(s) PO QAM and 1 tablet at bed time 07/27/2015 10/09/2015 Inactive Vistaril 25 mg capsule RxNorm: 425282 1 Capsule(s) PO BID 07/24/2015 08/22/2015 Inactive Savella 12.5 mg (5)- 25 mg(8)-50mg(42) tablets in a dose pack RxNorm: 248496 Tablet(s) PO as directed 07/10/2015 07/26/2015 Inactive hydrocodone 10 mg-ac etaminophen 325 mg tablet RxNorm: 475767 1 Tablet(s) PO Q6H as needed for pain 06/29/2015 08/10/2015 Inactive Coumadin 7.5 mg tablet RxNorm: 615737 1 Tablet(s) PO on and 06/21/2015 10/25/2015 In active Vistaril 25 mg capsule RxNorm: 447462 1 Capsule(s) PO BID 06/20/2015 07/24/2015 Inactive Cymbalta 30 mg capsu le,delayed release RxNorm: 557066 1 Capsule(s) PO QD 06/08/2015 07/09/2015 In active Coumadin 5 mg tablet RxNorm: 092074 1 Tablet(s) PO Mon.,Wed.,Fri., Sat. and Sun. 06/08/2015 07/07/2015 Inactive Coumadin 5 mg tablet RxNorm: 590750 1 Tablet(s) PO Mon.,Wed.,Fri., Sat. and Sun. 05/24/2015 06/07/2015 Inactive Coumadin 7.5 mg tablet RxNorm: 797946 1 Tablet(s) PO on and 05/24/2015 06/20/2015 In active Coumadin 7.5 mg tablet RxNorm: 382740 1 Tablet(s) PO on Friday No Start Date Active Vitamin B12 1000mcg Tablet RxNorm: 1/2 Tablet(s) PO QD No Start Date Active Bystolic 10 mg tablet RxNorm: 421898 3 Tablet(s) PO QAM No Start Date Active Vitamin D3 5,000 uni t tablet RxNorm: 886352 1 Tablet(s) PO QD No Start Date Active Bystolic 5 mg tablet RxNorm: 618605 1 Tablet(s) PO NOON No Start Date Active sumatriptan 100 mg t ablet RxNorm: 504075 1 Tablet(s) PO at hea dache onset. May repeat in 2 hours if headache remains No Start Date 11/03/2016 Inactive warfarin 7.5 mg tablet RxNorm: 653967 1 Tablet(s) PO three times weekly No Start Date 09/19/2016 Inactive ondansetron HCl 4 mg tablet RxNorm: 680869 1 Tablet(s) PO Q4H as needed for nausea No Start Date 02/23/2018 Inactive Imitrex 100 mg tablet RxNorm: 332005 1 Tablet(s) PO at headache onset and may repeat in 2 hours if needed No Start Date 12/04/2015 Inactive Vitamin B12 1000mcg Tablet RxNorm: 1/2 Tablet(s) PO on , hur, Sat and Sun and 1 tab all other days No Start Date 04/01/2018 Inactive warfarin 5 mg tablet RxNorm: 671676 1 Tablet(s) PO QD No Start Date 02/16/2019 Inactive baclofen 10 mg tablet RxNorm: 849884 1/2 Tablet(s) PO QAM and 1 tablet at bed time No Start Date 07/26/2015 Inactive tizanidine 4 mg tablet RxNorm: 389284 1-2 Tablet(s) PO QHS as needed for muscl e spasm and sleep No Start Date 06/02/2016 Inactive Flexeril 5 mg tablet RxNorm: 745115 1 Tablet(s) PO QD No Start Date 10/09/2015 Inactive methotrexate (PF) 20 mg/0.4 mL subcutaneous auto-injector RxNorm: 6390976 SQ QW No Start Date 12/25/2016 Inactive Bystolic 5 mg tablet RxNorm: 795234 1 Tablet(s) PO as needed No Start Date 03/15/2018 Inactive Questran Light 4 gra m powder for susp in a packet RxNorm: 755593 1 PO QD No Start Date 11/12/2015 Inactive Bystolic 10 mg tablet RxNorm: 366829 1 Tablet(s) PO QAM No Start Date 11/04/2017 Inactive warfarin 5 mg tablet RxNorm: 464550 1 Tablet(s) PO Fri Sun No Start Date 06/17/2017 Inactive hydrocodone 10 mg-ac etaminophen 325 mg tablet RxNorm: 337443 1 Tablet(s) PO 4-6hou rs as needed for pain No Start Date 08/31/2015 Inactive cyclobenzaprine 5 mg tablet RxNorm: 791995 1 Tablet(s) PO QPM No Start Date 12/16/2016 Inactive Lovenox 100 mg/mL carmona bcutaneous syringe RxNorm: 047871 1 Milliliter(s) SQ QD No Start Date 06/07/2015 Inactive Levsin 0.125 mg tablet RxNorm: 0349058 1 Tablet(s) PO QID as needed for spasm No Start Date 02/24/2017 Inactive Savella 12.5 mg (5)- 25 mg(8)-50mg(42) tablets in a dose pack RxNorm: 280478 Tablet(s) PO as directed No Start Date 07/09/2015 Inactive Coumadin 10 mg tablet RxNorm: 365665 1 Tablet(s) PO QD No Start Date 2015 Inactive tramadol 50 mg tablet RxNorm: 893273 1 Tablet(s) PO TID as needed for pain No Start Date 03/31/2017 Inactive BuSpar 5 mg tablet RxNorm: 297183 1 Tablet(s) PO BID No Start Date 02/02/2017 Inactive Vistaril 25 mg capsule RxNorm: 925676 1 Capsule(s) PO BID No Start Date 06/19/2015 Inactive Tessalon Perles 100 mg capsule RxNorm: 828603 1 Capsule(s) PO TID a s needed for cough No Start Date 01/19/2019 Inactive promethazine 12.5 mg tablet RxNorm: 112386 1 Tablet(s) PO Q6H as needed No Start Date 04/22/2018 Inactive Coumadin 7.5 mg tablet RxNorm: 434501 1 Tablet(s) PO Fri and Friday No Start Date 03/13/2016 Inactive Imitrex 50 mg tablet RxNorm: 062032 1 Tablet(s) PO at headache. repeat in 2 hours if no relief. no more than 2 tabs per day No Start Date 12/25/2017 Inactive acetazolamide 125 mg tablet RxNorm: 206393 1 Tablet(s) PO BID No Start Date 09/13/2015 Inactive methotrexate (PF) 12 .5 mg/0.4 mL subcutaneous auto-injector RxNorm: 4291194 1 Milliliter(s) SQ QW No Start Date 03/31/2017 Inactive Bystolic 10 mg tablet RxNorm: 589809 1 Tablet(s) PO QAM No Start Date 03/25/2018 Inactive Zithromax Z-Juan Francisco 250 mg tablet RxNorm: 726899 Tablet(s) PO As Direc liane No Start Date 05/11/2017 Inactive Bystolic 20 mg tablet RxNorm: 100295 1 Tablet(s) PO QD No Start Date 03/15/2018 Inactive Questran 4 gram powd er for susp in a packet RxNorm: 452816 1 Unit(s) PO QD No Start Date 12/16/2016 Inactive Vitamin D3 1,000 uni t tablet RxNorm: 800471 1 Tablet(s) PO QD No Start Date 04/01/2018 Inactive Coumadin 5 mg tablet RxNorm: 119311 1 Tablet(s) PO Friday through Friday No Start Date 03/13/2016 Inactive warfarin 5 mg tablet RxNorm: 963075 1 Tablet(s) PO four days per week No Start Date 04/01/2018 Inactive ProAir HFA 90 mcg/ac tuation aerosol inhaler RxNorm: 459710 2 Puff(s) INH Q4H as needed No Start Date 01/19/2019 Inactive Bystolic 5 mg tablet RxNorm: 200355 1 Tablet(s) PO QHS No Start Date 03/25/2018 Inactive Compazine 10 mg tablet RxNorm: 587299 1 Tablet(s) PO TID as needed for nausea No Start Date 12/17/2016 Inactive Pyridium 200 mg tablet RxNorm: 3272041 1 Tablet(s) PO TID for bladder spasms No Start Date 02/26/2017 Inactive hydrocodone 10 mg-ac etaminophen 325 mg tablet RxNorm: 371340 1 Tablet(s) PO as nee ded No Start Date 06/28/2015 Inactive warfarin 7.5 mg tablet RxNorm: 182779 1 Tablet(s) PO on Friday and No Start Date 04/01/2018 Inactive promethazine 25 mg t ablet RxNorm: 741644 1 Tablet(s) PO Q4H as needed for nausea No Start Date 12/04/2015 Inactive Lovenox 30 mg/0.3 mL subcutaneous syringe RxNorm: 417232 1 Milliliter(s) SQ QD No Start Date 06/07/2015 Inactive Vitamin B12 1000mcg Tablet RxNorm: 1/2 Tablet(s) PO QD No Start Date 12/02/2017 Inactive Vitamin B12 1000mcg Tablet RxNorm: 1 Tablet(s) PO M// QD No Start Date 12/02/2017 Inactive Medication Administered No Medication Administered data Immunizations Vaccine Codes Date Status Influenza CVX: 141 03/24 completed Assessments Condition Codes Effectiv e Dates 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 ICD-10: Z79.01 ICD-9: [...] and perineal pain ICD-10: R10 .2 ICD-9: [id number] 02/10/2017 Hematuria, unspecified ICD-10: R31.9 ICD-9: 599.70 [...] Code Item Item Code Result Date PT 7029092 PT 23.5 Seconds 03/08/2019 PT [id number] INR 2.0 03/08/2019 ANTI STREPTOLYSIN O TITER(ASO) 62818 ASO Titr 110 IU/mL 9 MYCOPLASMA ANTIBODY, IFA [id number] Mycoplas Ab IgG 1:64 01/20/2019 MYCOPLASMA ANTIBODY, IFA [id number] Mycoplas Ab IgM <1:10 01/20/2019 MYCOPLASMA ANTIBODY, IFA 85097M4 Mycoplasma Intp See Below 01/20/2019 LEGIONELLA [id number] Legio adore Ab <1:128 01/20/2019 HEPATIC FUNCTION PANEL A 88559 Total Protein 6.3 g/dL 01/19/2019 HEPATIC FUNCTION PANEL A 81386 AST 16 U/L 01/19/2019 HEPATIC FUNCTION PANEL A 13903 ALK PHOS 52 U/L 01/19/2019 HEPATIC FUNCTION PANEL A 88082 Bili Total 0.2 mg/dL 01/19/2019 HEPATIC FUNCTION PANEL A 27178 ALT 20 U/L 01/19/2019 HEPATIC FUNCTION PANEL A 48260 ALBUMIN 4.3 g/dL 01/19/2019 HEPATIC FUNCTION PANEL A 44767 Bili Direct 0.1 mg/dL 01/19/2019 PT 6429899 PT 27.5 Seconds 01/19/2019 PT 3112475 INR 2.6 01/19/2019 COMPLETE BLOOD COUNT 2160330 WBC 11.1 10e9/L 01/19/2019 COMPLETE BLOOD COUNT 5160245 RBC 4.14 10e12/L 9 COMPLETE BLOOD COUNT 7009938 HEMOGLOBIN 13.9 g/dL 01/19/2019 COMPLETE BLOOD COUNT 4368230 HEMATOCRIT 40.7 % 01/19/2019 COMPLETE BLOOD COUNT 7564951 MCV 98.3 fL 01/19/2019 COMPLETE BLOOD COUNT 8047491 MCH 33.6 pg 01/19/2019 COMPLETE BLOOD COUNT 5005506 MCHC 34.2 g/dL 01/19/2019 COMPLETE BLOOD COUNT 7961984 PLATELET COUNT 334 10e9/L 01/19/2019 COMPLETE BLOOD COUNT 1620918 Mean Plt Volume 8.9 fL 01/19/2019 COMPLETE BLOOD COUNT 4911197 Neut Auto 60.2 % 01/19/2019 COMPLETE BLOOD COUNT 1140958 Lymph Auto 32.5 % 01/19/2019 COMPLETE BLOOD COUNT 3392210 Ellis Auto 6.1 % 01/19/2019 COMPLETE BLOOD COUNT 8293090 RDW 12.5 % 01/19/2019 COMPLETE BLOOD COUNT 0833314 Eos Auto 1.0 % 01/19/2019 COMPLETE BLOOD COUNT 4027162 Baso Auto 0.2 % 01/19/2019 COMPLETE BLOOD COUNT 6326011 Neutrophil Abs 6.68 10e9/L 01/19/2019 COMPLETE BLOOD COUNT 3642004 Lymphocyte Abs 3.61 10e9/L 01/19/2019 COMPLETE BLOOD COUNT 1699514 Monocyte Abs 0.68 10e9/L 01/19/2019 COMPLETE BLOOD COUNT 9911343 Eosinophil Abs 0.11 10e9/L 01/19/2019 COMPLETE BLOOD COUNT 1941143 RDW-SD 43.4 fL 01/19/2019 COMPLETE BLOOD COUNT 4544689 Basophil Abs 0.02 10e9/L 01/19/2019 COMPLETE BLOOD COUNT 8151277 WBC 7.4 10e9/L 12/18/2018 COMPLETE BLOOD COUNT 0389654 RBC 4.32 10e12/L 9 COMPLETE BLOOD COUNT 2341266 HEMOGLOBIN 14.2 g/dL 12/18/2018 COMPLETE BLOOD COUNT 7646752 HEMATOCRIT 42.0 % 12/18/2018 COMPLETE BLOOD COUNT 8032036 MCV 97.2 fL 12/18/2018 COMPLETE BLOOD COUNT 3853543 MCH 32.9 pg 12/18/2018 COMPLETE BLOOD COUNT 0222380 MCHC 33.8 g/dL 12/18/2018 COMPLETE BLOOD COUNT 0569843 PLATELET COUNT 273 10e9/L 12/18/2018 COMPLETE BLOOD COUNT 3657310 Mean Plt Volume 9.4 fL 12/18/2018 COMPLETE BLOOD COUNT 9198499 Neut Auto 57.7 % 12/18/2018 COMPLETE BLOOD COUNT 7968646 Lymph Auto 34.8 % 12/18/2018 COMPLETE BLOOD COUNT 3320475 Ellis Auto 6.4 % 12/18/2018 COMPLETE BLOOD COUNT 4494848 RDW 12.6 % 12/18/2018 COMPLETE BLOOD COUNT 4882037 Eos Auto 0.8 % 12/18/2018 COMPLETE BLOOD COUNT 3718397 Baso Auto 0.3 % 12/18/2018 COMPLETE BLOOD COUNT 9873152 Neutrophil Abs 4.27 10e9/L 12/18/2018 COMPLETE BLOOD COUNT 6628088 Lymphocyte Abs 2.58 10e9/L 12/18/2018 COMPLETE BLOOD COUNT 5611099 Monocyte Abs 0.47 10e9/L 12/18/2018 COMPLETE BLOOD COUNT 1205616 Eosinophil Abs 0.06 10e9/L 12/18/2018 COMPLETE BLOOD COUNT 2586339 RDW-SD 43.8 fL 12/18/2018 COMPLETE BLOOD COUNT 6575695 Basophil Abs 0.02 10e9/L 12/18/2018 GFR CALC 3684298 GFR Non Afr Amr >60 mL/min 12/18/2018 GFR CALC 5898589 GFR Afr Amr >60 mL/min 12/18/2018 COMPREHENSIVE METABOLIC 76458 AST 33 U/L 12/18/2018 COMPREHENSIVE METABOLIC 12156 ALT 60 U/L 12/18/2018 COMPREHENSIVE METABOLIC 66380 BUN 9 mg/dL 12/18/2018 COMPREHENSIVE METABOLIC 89009 ALBUMIN 4.3 g/dL 12/18/2018 COMPREHENSIVE METABOLIC 52980 CHLORIDE 104 mmol/L 12/18/2018 COMPREHENSIVE METABOLIC 28780 Bili Total 0.3 mg/dL 12/18/2018 COMPREHENSIVE METABOLIC 92184 ALK PHOS 63 U/L 12/18/2018 COMPREHENSIVE METABOLIC 15978 SODIUM 139 mmol/L 12/18/2018 COMPREHENSIVE METABOLIC 05986 CREATININE 0.55 mg/dL 12/18/2018 COMPREHENSIVE METABOLIC 54568 CALCIUM 9.0 mg/dL 12/18/2018 COMPREHENSIVE METABOLIC 77822 POTASSIUM 3.9 mmol/L 12/18/2018 COMPREHENSIVE METABOLIC 27835 Total Protein 6.4 g/dL 12/18/2018 COMPREHENSIVE METABOLIC 68402 Glucose 83 mg/dL 12/18/2018 COMPREHENSIVE METABOLIC 87875 Bicarbonate 27 mmol/L 12/18/2018 COMPREHENSIVE METABOLIC 95825 AGAP 8 mmol/L 12/18/2018 ERYTHROCYTE SEDIMENTATION RATE 34723 Sed Rate 17 mm/hr 12/04/2018 MEAN GLUC 4161473 Calc M zach Gluc 108 mg/dL 12/03/2018 VITAMIN B 12 62245 VITAM IN B12 329 pg/mL 12/03/2018 COMPREHENSIVE METABOLIC 39564 AST 18 U/L 12/03/2018 COMPREHENSIVE METABOLIC 51889 ALT 21 U/L 12/03/2018 COMPREHENSIVE METABOLIC 75685 BUN 11 mg/dL 12/03/2018 COMPREHENSIVE METABOLIC 41379 ALBUMIN 4.5 g/dL 12/03/2018 COMPREHENSIVE METABOLIC 99220 CHLORIDE 106 mmol/L 12/03/2018 COMPREHENSIVE METABOLIC 48787 Bili Total 0.4 mg/dL 12/03/2018 COMPREHENSIVE METABOLIC 41049 ALK PHOS 49 U/L 12/03/2018 COMPREHENSIVE METABOLIC 51601 SODIUM 138 mmol/L 12/03/2018 COMPREHENSIVE METABOLIC 75161 CREATININE 0.61 mg/dL 12/03/2018 COMPREHENSIVE METABOLIC 83203 CALCIUM 9.2 mg/dL 12/03/2018 COMPREHENSIVE METABOLIC 55361 POTASSIUM 3.7 mmol/L 12/03/2018 COMPREHENSIVE METABOLIC 76510 Total Protein 6.8 g/dL 12/03/2018 COMPREHENSIVE METABOLIC 37676 Glucose 94 mg/dL 12/03/2018 COMPREHENSIVE METABOLIC 79557 Bicarbonate 25 mmol/L 12/03/2018 COMPREHENSIVE METABOLIC 13013 AGAP 7 mmol/L 12/03/2018 FREE T4 51305 T4 Free 0.96 ng/dL 12/03/2018 ASSAY TRIIODOTHYRONINE (T3) 95578 T3 Total 1.02 ng/mL 12/03/2018 GFR CALC 3983301 GFR Non Afr Amr >60 mL/min 12/03/2018 GFR CALC 1741331 GFR Afr Amr >60 mL/min 12/03/2018 GLYCOSYLATED HEMOGLOBIN TEST 63381 Hgb A1c 35548-2 5.4 % 12/03/2018 VITAMIN D TOTAL (25 HYDROXY) 41064 Vitamin D 25 OH 11.1 ng/mL 12/03/2018 IRON 24302 Iron 106 ug/dL 12/03/2018 THYROID STIMULATING HORMONE 85373 TSH 0.978 uIU/mL 9 COMPLETE BLOOD COUNT 2947452 WBC 9.4 10e9/L 12/03/2018 COMPLETE BLOOD COUNT 3540946 RBC 4.41 10e12/L 9 COMPLETE BLOOD COUNT 0248173 HEMOGLOBIN 14.5 g/dL 12/03/2018 COMPLETE BLOOD COUNT 7359540 HEMATOCRIT 43.0 % 12/03/2018 COMPLETE BLOOD COUNT 5759304 MCV 97.5 fL 12/03/2018 COMPLETE BLOOD COUNT 4881328 MCH 32.9 pg 12/03/2018 COMPLETE BLOOD COUNT 0378910 MCHC 33.7 g/dL 12/03/2018 COMPLETE BLOOD COUNT 5304154 PLATELET COUNT 336 10e9/L 12/03/2018 COMPLETE BLOOD COUNT 1229558 Mean Plt Volume 9.1 fL 12/03/2018 COMPLETE BLOOD COUNT 2506420 Neut Auto 56.4 % 12/03/2018 COMPLETE BLOOD COUNT 1722670 Lymph Auto 35.6 % 12/03/2018 COMPLETE BLOOD COUNT 9308572 Ellis Auto 6.8 % 12/03/2018 COMPLETE BLOOD COUNT 3785657 RDW 12.6 % 12/03/2018 COMPLETE BLOOD COUNT 8955141 Eos Auto 1.0 % 12/03/2018 COMPLETE BLOOD COUNT 9807041 Baso Auto 0.2 % 12/03/2018 COMPLETE BLOOD COUNT 9146391 Neutrophil Abs 5.30 10e9/L 12/03/2018 COMPLETE BLOOD COUNT 6409603 Lymphocyte Abs 3.35 10e9/L 12/03/2018 COMPLETE BLOOD COUNT 2909313 Monocyte Abs 0.64 10e9/L 12/03/2018 COMPLETE BLOOD COUNT 8007169 Eosinophil Abs 0.09 10e9/L 12/03/2018 COMPLETE BLOOD COUNT 0781289 RDW-SD 44.3 fL 12/03/2018 COMPLETE BLOOD COUNT 7296501 Basophil Abs 0.02 10e9/L 12/03/2018 FERRITIN 93190 FERRITIN 87.8 ng/mL 12/03/2018 PT 7423110 PT 23.1 Seconds 11/30/2018 PT 0359991 INR 2.0 11/30/2018 ANTI STREPTOLYSIN O TITER(ASO) 73366 ASO Titr 117 IU/mL 9 COMPLETE BLOOD COUNT 9023634 WBC 10.7 10e9/L 11/11/2018 COMPLETE BLOOD COUNT 3048798 RBC 4.42 10e12/L 9 COMPLETE BLOOD COUNT 3655522 HEMOGLOBIN 14.5 g/dL 11/11/2018 COMPLETE BLOOD COUNT 6685701 HEMATOCRIT 43.1 % 11/11/2018 COMPLETE BLOOD COUNT 6056525 MCV 97.5 fL 11/11/2018 COMPLETE BLOOD COUNT 1702233 MCH 32.8 pg 11/11/2018 COMPLETE BLOOD COUNT 2185146 MCHC 33.6 g/dL 11/11/2018 COMPLETE BLOOD COUNT 8435141 PLATELET COUNT 324 10e9/L 11/11/2018 COMPLETE BLOOD COUNT 6947745 Mean Plt Volume 9.2 fL 11/11/2018 COMPLETE BLOOD COUNT 0568776 Neut Auto 62.3 % 11/11/2018 COMPLETE BLOOD COUNT 2831759 Lymph Auto 30.8 % 11/11/2018 COMPLETE BLOOD COUNT 1189079 Ellis Auto 6.1 % 11/11/2018 COMPLETE BLOOD COUNT 9990667 RDW 12.7 % 11/11/2018 COMPLETE BLOOD COUNT 8071760 Eos Auto 0.7 % 11/11/2018 COMPLETE BLOOD COUNT 3328442 Baso Auto 0.1 % 11/11/2018 COMPLETE BLOOD COUNT 0511804 Neutrophil Abs 6.67 10e9/L 11/11/2018 COMPLETE BLOOD COUNT 1192485 Lymphocyte Abs 3.30 10e9/L 11/11/2018 COMPLETE BLOOD COUNT 8652759 Monocyte Abs 0.65 10e9/L 11/11/2018 COMPLETE BLOOD COUNT 3117474 Eosinophil Abs 0.07 10e9/L 11/11/2018 COMPLETE BLOOD COUNT 9100258 RDW-SD 44.3 fL 11/11/2018 COMPLETE BLOOD COUNT 3122627 Basophil Abs 0.01 10e9/L 11/11/2018 PT 4796549 PT 23.4 Seconds 10/27/2018 PT 9518781 INR 2.0 10/27/2018 COMPLETE BLOOD COUNT 1401868 WBC 8.1 10e9/L 09/25/2018 COMPLETE BLOOD COUNT 0331402 RBC 4.37 10e12/L 9 COMPLETE BLOOD COUNT 8920890 HEMOGLOBIN 14.5 g/dL 09/25/2018 COMPLETE BLOOD COUNT 6217329 HEMATOCRIT 42.1 % 09/25/2018 COMPLETE BLOOD COUNT 4933186 MCV 96.3 fL 09/25/2018 COMPLETE BLOOD COUNT 5184604 MCH 33.2 pg 09/25/2018 COMPLETE BLOOD COUNT 8554653 MCHC 34.4 g/dL 09/25/2018 COMPLETE BLOOD COUNT 6176938 PLATELET COUNT 313 10e9/L 09/25/2018 COMPLETE BLOOD COUNT 8209028 Mean Plt Volume 9.2 fL 09/25/2018 COMPLETE BLOOD COUNT 5754001 Neut Auto 57.4 % 09/25/2018 COMPLETE BLOOD COUNT 2235041 Lymph Auto 35.0 % 09/25/2018 COMPLETE BLOOD COUNT 8327429 Ellis Auto 6.3 % 09/25/2018 COMPLETE BLOOD COUNT 1553560 RDW 12.6 % 09/25/2018 COMPLETE BLOOD COUNT 9211576 Eos Auto 1.1 % 09/25/2018 COMPLETE BLOOD COUNT 9583453 Baso Auto 0.2 % 09/25/2018 COMPLETE BLOOD COUNT 3927914 Neutrophil Abs 4.65 10e9/L 09/25/2018 COMPLETE BLOOD COUNT 2459004 Lymphocyte Abs 2.84 10e9/L 09/25/2018 COMPLETE BLOOD COUNT 6462642 Monocyte Abs 0.51 10e9/L 09/25/2018 COMPLETE BLOOD COUNT 3042246 Eosinophil Abs 0.09 10e9/L 09/25/2018 COMPLETE BLOOD COUNT 7349150 RDW-SD 43.0 fL 09/25/2018 COMPLETE BLOOD COUNT 8143909 Basophil Abs 0.02 10e9/L 09/25/2018 COMPREHENSIVE METABOLIC 44552 AST 15 U/L 09/25/2018 COMPREHENSIVE METABOLIC 40614 ALT 20 U/L 09/25/2018 COMPREHENSIVE METABOLIC 04652 BUN 9 mg/dL 09/25/2018 COMPREHENSIVE METABOLIC 71109 ALBUMIN 4.3 g/dL 09/25/2018 COMPREHENSIVE METABOLIC 47740 CHLORIDE 107 mmol/L 09/25/2018 COMPREHENSIVE METABOLIC 13479 Bili Total 0.4 mg/dL 09/25/2018 COMPREHENSIVE METABOLIC 87277 ALK PHOS 51 U/L 09/25/2018 COMPREHENSIVE METABOLIC 95211 SODIUM 139 mmol/L 09/25/2018 COMPREHENSIVE METABOLIC 53882 CREATININE 0.61 mg/dL 09/25/2018 COMPREHENSIVE METABOLIC 62105 CALCIUM 9.1 mg/dL 09/25/2018 COMPREHENSIVE METABOLIC 21423 POTASSIUM 3.7 mmol/L 09/25/2018 COMPREHENSIVE METABOLIC 76357 Total Protein 6.3 g/dL 09/25/2018 COMPREHENSIVE METABOLIC 24920 Glucose 92 mg/dL 09/25/2018 COMPREHENSIVE METABOLIC 79365 Bicarbonate 24 mmol/L 09/25/2018 COMPREHENSIVE METABOLIC 24323 AGAP 8 mmol/L 09/25/2018 PT 8365290 PT 25.0 Seconds 09/25/2018 PT 1007733 INR 2.2 09/25/2018 GFR CALC 0761392 GFR Non Afr Amr >60 mL/min 09/25/2018 GFR CALC 1296399 GFR Afr Amr >60 mL/min 09/25/2018 PT 8331141 PT 25.7 Seconds 05/12/2018 PT 3399390 INR 2.3 05/12/2018 PT 1863037 PT TNP:Improper Specimen 04/30/2018 PT 8066397 INR TNP:Improper Specimen 04/30/2018 PT 0399017 PT 26.3 Seconds 02/05/2018 PT 0267481 INR 2.4 02/05/2018 ANTI STREPTOLYSIN O TITER(ASO) 50898 ASO Titr 118 IU/mL 8 VITAMIN B 12 06632 VITAM IN B12 302 pg/mL 12/02/2017 VITAMIN D TOTAL (25 HYDROXY) 12282 Vitamin D 25 OH 27.0 ng/mL 12/02/2017 PT 4943053 PT 17.3 Seconds 12/01/2017 PT 5713869 INR 1.4 12/01/2017 ANTI STREPTOLYSIN O TITER(ASO) 74383 ASO Titr 127 IU/mL 8 ANTI STREPTOLYSIN O TITER(ASO) 47061 ASO Titr 130 IU/mL 8 ANTINUCLEAR ANTIBODY SCREEN 76508 MAGALIE Ab Scr <1:80 10/02/2017 RA FACTOR 47914 RA FACTOR <20 IU/mL 10/02/2017 RA FACTOR 98385 RA Facto r Intp Negative 10/02/2017 VITAMIN D TOTAL (25 HYDROXY) 91877 Vitamin D 25 OH 18 ng/mL 8 IRON 00230 Iron 70 ug/dL 10/01/2017 VITAMIN B 12 79520 VITAM IN B12 377 pg/mL 10/01/2017 FREE T4 76524 T4 Free 1.31 ng/dL 10/01/2017 URIC ACID 43249 URIC ACID 3.9 mg/dL 10/01/2017 FERRITIN 22107 FERRITIN 68.0 ng/mL 10/01/2017 THYROID STIMULATING HORMONE 71432 TSH 1.401 uIU/mL 8 GLYCOSYLATED HEMOGLOBIN TEST 94773 Hgb A1c 41171-7 5.4 % 10/01/2017 FOLIC ACID 32832 Folate >24.0 ng/mL 10/01/2017 ASSAY TRIIODOTHYRONINE (T3) 28261 T3 Total 1.0 ng/mL 10/01/2017 ERYTHROCYTE SEDIMENTATION RATE 63268 Sed Rate 5 mm/hr 10/01/2017 MEAN GLUC 8241014 Calc M zach Gluc 108 mg/dL 10/01/2017 PT 5441465 PT 18.6 Seconds 08/07/2017 PT 8915042 INR 1.5 08/07/2017 COMPREHENSIVE METABOLIC 54520 AST 21 U/L 08/07/2017 COMPREHENSIVE METABOLIC 81788 ALT 37 U/L 08/07/2017 COMPREHENSIVE METABOLIC 95153 BUN 14 mg/dL 08/07/2017 COMPREHENSIVE METABOLIC 44899 ALBUMIN 4.5 g/dL 08/07/2017 COMPREHENSIVE METABOLIC 84905 CHLORIDE 104 mmol/L 08/07/2017 COMPREHENSIVE METABOLIC 10735 Bili Total 0.3 mg/dL 08/07/2017 COMPREHENSIVE METABOLIC 87539 ALK PHOS 55 U/L 08/07/2017 COMPREHENSIVE METABOLIC 08277 SODIUM 139 mmol/L 08/07/2017 COMPREHENSIVE METABOLIC 33728 CREATININE 0.77 mg/dL 08/07/2017 COMPREHENSIVE METABOLIC 01901 CALCIUM 9.2 mg/dL 08/07/2017 COMPREHENSIVE METABOLIC 80988 POTASSIUM 3.7 mmol/L 08/07/2017 COMPREHENSIVE METABOLIC 83842 Total Protein 6.5 g/dL 08/07/2017 COMPREHENSIVE METABOLIC 77964 Glucose 101 mg/dL 08/07/2017 COMPREHENSIVE METABOLIC 39657 Bicarbonate 25 mmol/L 08/07/2017 COMPREHENSIVE METABOLIC 74275 AGAP 10 mmol/L 08/07/2017 COMPLETE BLOOD COUNT 6737936 WBC 9.4 10e9/L 08/07/2017 COMPLETE BLOOD COUNT 7213369 RBC 4.38 10e12/L 8 COMPLETE BLOOD COUNT 7894427 HEMOGLOBIN 14.5 g/dL 08/07/2017 COMPLETE BLOOD COUNT 6850786 HEMATOCRIT 42.7 % 08/07/2017 COMPLETE BLOOD COUNT 4717587 MCV 97.5 fL 08/07/2017 COMPLETE BLOOD COUNT 4570742 MCH 33.1 pg 08/07/2017 COMPLETE BLOOD COUNT 9246256 MCHC 34.0 g/dL 08/07/2017 COMPLETE BLOOD COUNT 3533945 PLATELET COUNT 313 10e9/L 08/07/2017 COMPLETE BLOOD COUNT 0797219 Mean Plt Volume 8.6 fL 08/07/2017 COMPLETE BLOOD COUNT 9373403 Neut Auto 51.6 % 08/07/2017 COMPLETE BLOOD COUNT 7495407 Lymph Auto 40.0 % 08/07/2017 COMPLETE BLOOD COUNT 2878773 Ellis Auto 6.8 % 08/07/2017 COMPLETE BLOOD COUNT 1099631 RDW 12.9 % 08/07/2017 COMPLETE BLOOD COUNT 5125737 Eos Auto 1.4 % 08/07/2017 COMPLETE BLOOD COUNT 4021411 Baso Auto 0.2 % 08/07/2017 COMPLETE BLOOD COUNT 1531864 Neutrophil Abs 4.85 10e9/L 08/07/2017 COMPLETE BLOOD COUNT 3477501 Lymphocyte Abs 3.76 10e9/L 08/07/2017 COMPLETE BLOOD COUNT 6841193 Monocyte Abs 0.64 10e9/L 08/07/2017 COMPLETE BLOOD COUNT 6299758 Eosinophil Abs 0.13 10e9/L 08/07/2017 COMPLETE BLOOD COUNT 6363216 RDW-SD 45.1 fL 08/07/2017 COMPLETE BLOOD COUNT 9061921 Basophil Abs 0.02 10e9/L 08/07/2017 GFR CALC 7676536 GFR Non Afr Amr >60 mL/min 08/07/2017 GFR CALC 6400694 GFR Afr Amr >60 mL/min 08/07/2017 COMPLETE BLOOD COUNT 1600998 WBC 9.2 10e9/L 07/15/2017 COMPLETE BLOOD COUNT 9611493 RBC 4.70 10e12/L 8 COMPLETE BLOOD COUNT 2218214 HEMOGLOBIN 15.4 g/dL 07/15/2017 COMPLETE BLOOD COUNT 3426756 HEMATOCRIT 46.2 % 07/15/2017 COMPLETE BLOOD COUNT 6102273 MCV 98.3 fL 07/15/2017 COMPLETE BLOOD COUNT 2540575 MCH 32.8 pg 07/15/2017 COMPLETE BLOOD COUNT 4728047 MCHC 33.3 g/dL 07/15/2017 COMPLETE BLOOD COUNT 8932944 PLATELET COUNT 348 10e9/L 07/15/2017 COMPLETE BLOOD COUNT 8580498 Mean Plt Volume 8.9 fL 07/15/2017 COMPLETE BLOOD COUNT 7312064 Neut Auto 60.6 % 07/15/2017 COMPLETE BLOOD COUNT 1889941 Lymph Auto 30.9 % 07/15/2017 COMPLETE BLOOD COUNT 8199947 Ellis Auto 7.1 % 07/15/2017 COMPLETE BLOOD COUNT 7997617 RDW 13.1 % 07/15/2017 COMPLETE BLOOD COUNT 1531212 Eos Auto 1.2 % 07/15/2017 COMPLETE BLOOD COUNT 8271207 Baso Auto 0.2 % 07/15/2017 COMPLETE BLOOD COUNT 8753415 Neutrophil Abs 5.58 10e9/L 07/15/2017 COMPLETE BLOOD COUNT 2857498 Lymphocyte Abs 2.84 10e9/L 07/15/2017 COMPLETE BLOOD COUNT 0315552 Monocyte Abs 0.65 10e9/L 07/15/2017 COMPLETE BLOOD COUNT 2398808 Eosinophil Abs 0.11 10e9/L 07/15/2017 COMPLETE BLOOD COUNT 2314716 RDW-SD 46.1 fL 07/15/2017 COMPLETE BLOOD COUNT 5856284 Basophil Abs 0.02 10e9/L 07/15/2017 GFR CALC 1110913 GFR Non Afr Amr >60 mL/min 07/15/2017 GFR CALC 0782994 GFR Afr Amr >60 mL/min 07/15/2017 COMPREHENSIVE METABOLIC 36446 AST 16 U/L 07/15/2017 COMPREHENSIVE METABOLIC 36860 ALT 20 U/L 07/15/2017 COMPREHENSIVE METABOLIC 97869 BUN 13 mg/dL 07/15/2017 COMPREHENSIVE METABOLIC 02671 ALBUMIN 4.6 g/dL 07/15/2017 COMPREHENSIVE METABOLIC 42388 CHLORIDE 106 mmol/L 07/15/2017 COMPREHENSIVE METABOLIC 24185 Bili Total 0.3 mg/dL 07/15/2017 COMPREHENSIVE METABOLIC 41378 ALK PHOS 50 U/L 07/15/2017 COMPREHENSIVE METABOLIC 47158 SODIUM 137 mmol/L 07/15/2017 COMPREHENSIVE METABOLIC 37387 CREATININE 0.62 mg/dL 07/15/2017 COMPREHENSIVE METABOLIC 36755 CALCIUM 9.2 mg/dL 07/15/2017 COMPREHENSIVE METABOLIC 26026 POTASSIUM 3.8 mmol/L 07/15/2017 COMPREHENSIVE METABOLIC 30075 Total Protein 6.7 g/dL 07/15/2017 COMPREHENSIVE METABOLIC 15727 Glucose 83 mg/dL 07/15/2017 COMPREHENSIVE METABOLIC 38499 Bicarbonate 30 mmol/L 07/15/2017 COMPREHENSIVE METABOLIC 92074 AGAP 1 mmol/L 07/15/2017 THYROID STIMULATING HORMONE 58732 TSH 2.111 uIU/mL 201 7 COMPREHENSIVE METABOLIC 41451 AST 33 U/L 08/27/2016 COMPREHENSIVE METABOLIC 83978 ALT 55 U/L 08/27/2016 COMPREHENSIVE METABOLIC 34595 BUN 11 mg/dL 08/27/2016 COMPREHENSIVE METABOLIC 10711 ALBUMIN 4.6 g/dL 08/27/2016 COMPREHENSIVE METABOLIC 03625 CHLORIDE 103 mmol/L 08/27/2016 COMPREHENSIVE METABOLIC 09017 Bili Total 0.3 mg/dL 08/27/2016 COMPREHENSIVE METABOLIC 32270 ALK PHOS 60 U/L 08/27/2016 COMPREHENSIVE METABOLIC 46295 SODIUM 140 mmol/L 08/27/2016 COMPREHENSIVE METABOLIC 95907 CREATININE 0.69 mg/dL 08/27/2016 COMPREHENSIVE METABOLIC 37503 CALCIUM 9.3 mg/dL 08/27/2016 COMPREHENSIVE METABOLIC 42505 POTASSIUM 3.7 mmol/L 08/27/2016 COMPREHENSIVE METABOLIC 97433 Total Protein 6.8 g/dL 08/27/2016 COMPREHENSIVE METABOLIC 69006 Glucose 79 mg/dL 08/27/2016 COMPREHENSIVE METABOLIC 16977 Bicarbonate 25 mmol/L 08/27/2016 COMPREHENSIVE METABOLIC 18629 AGAP 12 mmol/L 08/27/2016 COMPLETE BLOOD COUNT 6779595 WBC 9.4 10e9/L 08/27/2016 COMPLETE BLOOD COUNT 2563562 RBC 4.35 10e12/L 7 COMPLETE BLOOD COUNT 1546939 HEMOGLOBIN 14.2 g/dL 08/27/2016 COMPLETE BLOOD COUNT 9705750 HEMATOCRIT 41.5 % 08/27/2016 COMPLETE BLOOD COUNT 1912686 MCV 95.4 fL 08/27/2016 COMPLETE BLOOD COUNT 0520364 MCH 32.6 pg 08/27/2016 COMPLETE BLOOD COUNT 2462274 MCHC 34.2 g/dL 08/27/2016 COMPLETE BLOOD COUNT 9071474 PLATELET COUNT 289 10e9/L 08/27/2016 COMPLETE BLOOD COUNT 0127158 Mean Plt Volume 9.8 fL 08/27/2016 COMPLETE BLOOD COUNT 5700170 Neut Auto 47.7 % 08/27/2016 COMPLETE BLOOD COUNT 0658803 Lymph Auto 44.2 % 08/27/2016 COMPLETE BLOOD COUNT 6618429 Ellis Auto 6.6 % 08/27/2016 COMPLETE BLOOD COUNT 9335407 RDW 12.9 % 08/27/2016 COMPLETE BLOOD COUNT 1616472 Eos Auto 1.4 % 08/27/2016 COMPLETE BLOOD COUNT 2288772 Baso Auto 0.1 % 08/27/2016 COMPLETE BLOOD COUNT 7473094 Neutrophil Abs 4.48 10e9/L 08/27/2016 COMPLETE BLOOD COUNT 2875916 Lymphocyte Abs 4.15 10e9/L 08/27/2016 COMPLETE BLOOD COUNT 8404073 Monocyte Abs 0.62 10e9/L 08/27/2016 COMPLETE BLOOD COUNT 1775835 Eosinophil Abs 0.13 10e9/L 08/27/2016 COMPLETE BLOOD COUNT 0048726 RDW-SD 43.9 fL 08/27/2016 COMPLETE BLOOD COUNT 5299324 Basophil Abs 0.01 10e9/L 08/27/2016 PT 6462267 PT 15.0 Seconds 08/27/2016 PT 2753119 INR 1.2 08/27/2016 GFR CALC 8012728 GFR Afr Amr >60 mL/min 08/27/2016 GFR CALC 5772976 GFR Non Afr Amr >60 mL/min 08/27/2016 GFR CALC 9437351 GFR Non Afr Amr >60 mL/min 05/24/2016 GFR CALC 6648933 GFR Afr Amr >60 mL/min 05/24/2016 COMPREHENSIVE METABOLIC 50545 AST 19 U/L 05/24/2016 COMPREHENSIVE METABOLIC 64731 ALT 23 U/L 05/24/2016 COMPREHENSIVE METABOLIC 50636 BUN 12 mg/dL 05/24/2016 COMPREHENSIVE METABOLIC 83248 ALBUMIN 4.1 g/dL 05/24/2016 COMPREHENSIVE METABOLIC 68297 CHLORIDE 105 mmol/L 05/24/2016 COMPREHENSIVE METABOLIC 13147 Bili Total 0.4 mg/dL 05/24/2016 COMPREHENSIVE METABOLIC 31836 ALK PHOS 52 U/L 05/24/2016 COMPREHENSIVE METABOLIC 61708 SODIUM 136 mmol/L 05/24/2016 COMPREHENSIVE METABOLIC 82458 CREATININE 0.61 mg/dL 05/24/2016 COMPREHENSIVE METABOLIC 80503 CALCIUM 8.8 mg/dL 05/24/2016 COMPREHENSIVE METABOLIC 63366 POTASSIUM 3.8 mmol/L 05/24/2016 COMPREHENSIVE METABOLIC 99764 Total Protein 6.2 g/dL 05/24/2016 COMPREHENSIVE METABOLIC 15625 Glucose 95 mg/dL 05/24/2016 COMPREHENSIVE METABOLIC 98136 Bicarbonate 19 mmol/L 05/24/2016 COMPREHENSIVE METABOLIC 41051 AGAP 12 mmol/L 05/24/2016 PT 5497757 PT 25.7 Seconds 05/24/2016 PT 2356444 INR 2.4 05/24/2016 PT 8668483 PT 22.2 Seconds 04/11/2016 PT 7890069 INR 2.0 04/11/2016 PT 1734206 PT 16.5 Seconds 03/13/2016 PT 0950652 INR 1.4 03/13/2016 THYROID STIMULATING HORMONE 75877 TSH 1.151 uIU/mL 6 COMPLETE BLOOD COUNT 9798773 WBC 10.0 10e9/L 03/12/2016 COMPLETE BLOOD COUNT 5387074 RBC 4.08 10e12/L 6 COMPLETE BLOOD COUNT 1077640 HEMOGLOBIN 13.5 g/dL 03/12/2016 COMPLETE BLOOD COUNT 5001561 HEMATOCRIT 38.8 % 03/12/2016 COMPLETE BLOOD COUNT 6976898 MCV 95.1 fL 03/12/2016 COMPLETE BLOOD COUNT 7420692 MCH 33.1 pg 03/12/2016 COMPLETE BLOOD COUNT 4203797 MCHC 34.8 g/dL 03/12/2016 COMPLETE BLOOD COUNT 8027711 PLATELET COUNT 282 10e9/L 03/12/2016 COMPLETE BLOOD COUNT 7344711 Mean Plt Volume 9.6 fL 03/12/2016 COMPLETE BLOOD COUNT 6307121 Neut Auto 53.5 % 03/12/2016 COMPLETE BLOOD COUNT 4141330 Lymph Auto 39.0 % 03/12/2016 COMPLETE BLOOD COUNT 7209114 Ellis Auto 5.9 % 03/12/2016 COMPLETE BLOOD COUNT 7873400 RDW 12.6 % 03/12/2016 COMPLETE BLOOD COUNT 8225817 Eos Auto 1.4 % 03/12/2016 COMPLETE BLOOD COUNT 6494876 Baso Auto 0.2 % 03/12/2016 COMPLETE BLOOD COUNT 8851148 Neutrophil Abs 5.35 10e9/L 03/12/2016 COMPLETE BLOOD COUNT 0919934 Lymphocyte Abs 3.90 10e9/L 03/12/2016 COMPLETE BLOOD COUNT 3398297 Monocyte Abs 0.59 10e9/L 03/12/2016 COMPLETE BLOOD COUNT 9191706 Eosinophil Abs 0.14 10e9/L 03/12/2016 COMPLETE BLOOD COUNT 2168589 RDW-SD 42.7 fL 03/12/2016 COMPLETE BLOOD COUNT 5677268 Basophil Abs 0.02 10e9/L 03/12/2016 COMPREHENSIVE METABOLIC 44618 AST 13 U/L 03/12/2016 COMPREHENSIVE METABOLIC 91008 ALT 11 U/L 03/12/2016 COMPREHENSIVE METABOLIC 52423 BUN 11 mg/dL 03/12/2016 COMPREHENSIVE METABOLIC 37673 ALBUMIN 4.1 g/dL 03/12/2016 COMPREHENSIVE METABOLIC 79977 CHLORIDE 107 mmol/L 03/12/2016 COMPREHENSIVE METABOLIC 38429 Bili Total 0.3 mg/dL 03/12/2016 COMPREHENSIVE METABOLIC 85552 ALK PHOS 41 U/L 03/12/2016 COMPREHENSIVE METABOLIC 93105 SODIUM 137 mmol/L 03/12/2016 COMPREHENSIVE METABOLIC 47884 CREATININE 0.62 mg/dL 03/12/2016 COMPREHENSIVE METABOLIC 05032 CALCIUM 9.0 mg/dL 03/12/2016 COMPREHENSIVE METABOLIC 29343 POTASSIUM 3.8 mmol/L 03/12/2016 COMPREHENSIVE METABOLIC 42769 Total Protein 6.1 g/dL 03/12/2016 COMPREHENSIVE METABOLIC 90048 Glucose 95 mg/dL 03/12/2016 COMPREHENSIVE METABOLIC 87567 Bicarbonate 23 mmol/L 03/12/2016 COMPREHENSIVE METABOLIC 43968 AGAP 7 mmol/L 03/12/2016 GFR CALC 5434037 GFR Non Afr Amr >60 mL/min 03/12/2016 GFR CALC 6152725 GFR Afr Amr >60 mL/min 03/12/2016 PT 8822365 PT 14.4 Seconds 02/12/2016 PT 9840204 INR 1.2 02/12/2016 PT 6260254 PT 26.1 Seconds 02/01/2016 PT 5231796 INR 2.4 02/01/2016 [place] VIR[place] VCA G/M + [place] + [place] [address]|8 6665 x 2|84317 EBV VCA Ab IgG 3.70 11/13/2015 [place]IR[place] VCA G/M + [place] + [place] [address]|8 6665 x 2|80684 EBV VCA Ab IgM 0.47 11/13/2015 EB VIRUS VCA G/M + [place] + [place] [address]|8 6665 x 2|82196 EBV Nuclear Ab 2.24 11/13/2015 EB VIRUS VCA G/M + EB[place] + [place] [address]|8 6665 x 2|92727 EBV Early Ab 1.37 11/13/2015 PT 5328474 PT 18.9 Seconds 11/10/2015 PT 8709482 INR 1.6 11/10/2015 PT 8407799 PT 16.8 Seconds 09/29/2015 PT 9483661 INR 1.4 09/29/2015 COMPLETE BLOOD COUNT 2410453 WBC 9.6 10e9/L 09/29/2015 COMPLETE BLOOD COUNT 6728533 RBC 4.51 10e12/L 6 COMPLETE BLOOD COUNT 9152820 HEMOGLOBIN 14.8 g/dL 09/29/2015 COMPLETE BLOOD COUNT 8145268 HEMATOCRIT 43.3 % 09/29/2015 COMPLETE BLOOD COUNT 4156782 MCV 96.0 fL 09/29/2015 COMPLETE BLOOD COUNT 3924662 MCH 32.8 pg 09/29/2015 COMPLETE BLOOD COUNT 4059040 MCHC 34.2 g/dL 09/29/2015 COMPLETE BLOOD COUNT 0876836 PLATELET COUNT 310 10e9/L 09/29/2015 COMPLETE BLOOD COUNT 0988423 Mean Plt Volume 9.7 fL 09/29/2015 COMPLETE BLOOD COUNT 2925086 Neutrophil 60.3 % 09/29/2015 COMPLETE BLOOD COUNT 5527209 Lymph Auto % 32.4 % 09/29/2015 COMPLETE BLOOD COUNT 5682122 Monocyte Auto % 6.5 % 09/29/2015 COMPLETE BLOOD COUNT 9114687 RDW 12.8 % 09/29/2015 COMPLETE BLOOD COUNT 9998691 Eosinophil 0.7 % 09/29/2015 COMPLETE BLOOD COUNT 5300600 Basophil 0.1 % 09/29/2015 COMPLETE BLOOD COUNT 4181079 Neutrophil Abs 5.79 10e9/L 09/29/2015 COMPLETE BLOOD COUNT 8706793 Lymphoctye Abs 3.11 10e9/L 09/29/2015 COMPLETE BLOOD COUNT 3457030 Monocyte Abs 0.62 10e9/L 09/29/2015 COMPLETE BLOOD COUNT 8598042 Eosinophil Abs 0.07 10e9/L 09/29/2015 COMPLETE BLOOD COUNT 6790447 RDW-SD 43.6 fL 09/29/2015 COMPLETE BLOOD COUNT 4728955 Basophil Abs 0.01 10e9/L 09/29/2015 IRON 85355 Iron 86 ug/dL 09/29/2015 COMPLETE BLOOD COUNT 6303411 WBC 9.6 10e9/L 09/29/2015 COMPLETE BLOOD COUNT 9971569 RBC 4.51 10e12/L 6 COMPLETE BLOOD COUNT 5466487 HEMOGLOBIN 14.8 g/dL 09/29/2015 COMPLETE BLOOD COUNT 3678885 HEMATOCRIT 43.3 % 09/29/2015 COMPLETE BLOOD COUNT 3636850 MCV 96.0 fL 09/29/2015 COMPLETE BLOOD COUNT 6131005 MCH 32.8 pg 09/29/2015 COMPLETE BLOOD COUNT 7991941 MCHC 34.2 g/dL 09/29/2015 COMPLETE BLOOD COUNT 6474895 PLATELET COUNT 310 10e9/L 09/29/2015 COMPLETE BLOOD COUNT 8676370 Mean Plt Volume 9.7 fL 09/29/2015 COMPLETE BLOOD COUNT 5940781 Neutrophil 60.3 % 09/29/2015 COMPLETE BLOOD COUNT 9238280 Lymph Auto % 32.4 % 09/29/2015 COMPLETE BLOOD COUNT 7956333 Monocyte Auto % 6.5 % 09/29/2015 COMPLETE BLOOD COUNT 0598096 RDW 12.8 % 09/29/2015 COMPLETE BLOOD COUNT 1725858 Eosinophil 0.7 % 09/29/2015 COMPLETE BLOOD COUNT 6465312 Basophil 0.1 % 09/29/2015 COMPLETE BLOOD COUNT 2344882 Neutrophil Abs 5.79 10e9/L 09/29/2015 COMPLETE BLOOD COUNT 9963383 Lymphoctye Abs 3.11 10e9/L 09/29/2015 COMPLETE BLOOD COUNT 3554237 Monocyte Abs 0.62 10e9/L 09/29/2015 COMPLETE BLOOD COUNT 5246047 Eosinophil Abs 0.07 10e9/L 09/29/2015 COMPLETE BLOOD COUNT 9809943 RDW-SD 43.6 fL 09/29/2015 COMPLETE BLOOD COUNT 6712431 Basophil Abs 0.01 10e9/L 09/29/2015 PT 0714580 PT 16.8 Seconds 09/29/2015 PT 0032686 INR 1.4 09/29/2015 IRON 55814 Iron 86 ug/dL 09/29/2015 PT MT IVANNA 37168 PRO T PAULIE 19.4 SEC 07/27/2015 PT MT IVANNA 15939 INR M CMC 1.7 07/27/2015 PT MT IVANNA 21338 PRO T PAULIE 21.4 SEC 06/21/2015 PT MT IVANNA 09307 INR M CMC 1.9 06/21/2015 PT MT IVANNA 67613 PRO T PAULIE 24.5 SEC 05/24/2015 PT MT IVANNA 24649 INR M CMC 2.3 05/24/2015 Review of [...] cm in diameter. Full Exam - General Constitutional general appearance [...] None Procedures Procedure Codes Date PT CPT-4: 0567943 03/08/2019 VIRUS INOCULATION TI SSUE CPT-4: 09254 03/08/2019 AEROBIC WOUND CULTUR E & STN CPT-4: 94933 03/08/2019 ROUTINE VENIPUNCTURE CPT-4: 40691 02/17/2019 PT CPT-4: 4735252 02/17/2019 URINE CULTURE/ COLON Y COUNT CPT-4: 69643 02/08/2019 ROUTINE VENIPUNCTURE CPT-4: 58611 01/19/2019 PROTHROMBIN TIME CPT-4: 81881 01/19/2019 COMPLETE CBC W/AUTO DIFF WBC CPT-4: 58537 01/19/2019 ANTISTREPTOLYSIN O T ITER CPT-4: 77350 01/19/2019 HEPATIC FUNCTION PANEL CPT-4: 79842 01/19/2019 MYCOPLASMA ANTIBODY, IFA CPT-4: 82760S3 01/19/2019 RESPIRATORY CULTURE & STAIN CPT-4: 26126 01/19/2019 STREP A ASSAY W/OPTIC CPT-4: 39715 01/19/2019 THER/PROPH/DIAG INJ SC/IM CPT-4: 62200 01/04/2019 TRIAMCINOLONE ACET I NJ NOS CPT-4: J3301 01/04/2019 ROUTINE VENIPUNCTURE CPT-4: 18382 12/18/2018 COMPLETE CBC W/AUTO DIFF WBC CPT-4: 31490 12/18/2018 COMPREHEN METABOLIC PANEL CPT-4: 35005 12/18/2018 HYDRATION IV INFUSIO N INIT CPT-4: 48046 12/16/2018 STREP A ASSAY W/OPTIC CPT-4: 90179 12/02/2018 ROUTINE VENIPUNCTURE CPT-4: 68777 11/30/2018 PT CPT-4: 0187831 11/30/2018 CEFTRIAXONE SODIUM I NJECTION CPT-4: J0696 11/30/2018 THER/PROPH/DIAG INJ SC/IM CPT-4: 75693 11/30/2018 URINE CULTURE/ COLON Y COUNT CPT-4: 58174 11/20/2018 URINALYSIS NONAUTO W /O SCOPE CPT-4: 66117 11/20/2018 CEFTRIAXONE SODIUM I NJECTION CPT-4: J0696 11/12/2018 THER/PROPH/DIAG INJ SC/IM CPT-4: 20092 11/12/2018 STREP A ASSAY W/OPTIC CPT-4: 45834 11/11/2018 CEFTRIAXONE SODIUM I NJECTION CPT-4: J0696 11/11/2018 THER/PROPH/DIAG INJ SC/IM CPT-4: 52732 11/11/2018 ROUTINE VENIPUNCTURE CPT-4: 07086 11/11/2018 ANTISTREPTOLYSIN O T ITER CPT-4: 17425 11/11/2018 COMPLETE CBC W/AUTO DIFF WBC CPT-4: 43357 11/11/2018 ROUTINE VENIPUNCTURE CPT-4: 49718 10/27/2018 PT CPT-4: 7151491 10/27/2018 THER/PROPH/DIAG INJ SC/IM CPT-4: 96890 10/09/2018 TRIAMCINOLONE ACET I NJ NOS CPT-4: J3301 10/09/2018 CEFTRIAXONE SODIUM I NJECTION CPT-4: J0696 10/08/2018 THER/PROPH/DIAG INJ SC/IM CPT-4: 09034 10/08/2018 CEFTRIAXONE SODIUM I NJECTION CPT-4: J0696 10/07/2018 THER/PROPH/DIAG INJ SC/IM CPT-4: 63122 10/07/2018 ROUTINE VENIPUNCTURE CPT-4: 03821 09/25/2018 COMPREHEN METABOLIC PANEL CPT-4: 01089 09/25/2018 COMPLETE CBC W/AUTO DIFF WBC CPT-4: 47986 09/25/2018 PT CPT-4: 4727073 09/25/2018 URINE CULTURE/ COLON Y COUNT CPT-4: 64551 09/10/2018 URINALYSIS NONAUTO W /O SCOPE CPT-4: 36744 09/10/2018 CEFTRIAXONE SODIUM I NJECTION CPT-4: J0696 09/08/2018 THER/PROPH/DIAG INJ SC/IM CPT-4: 08309 09/08/2018 ROUTINE VENIPUNCTURE CPT-4: 54636 08/14/2018 PT CPT-4: 6926856 08/14/2018 CEFTRIAXONE SODIUM I NJECTION CPT-4: J0696 07/02/2018 THER/PROPH/DIAG INJ SC/IM CPT-4: 92257 07/02/2018 THER/PROPH/DIAG INJ SC/IM CPT-4: 31935 07/02/2018 TRIAMCINOLONE ACET I NJ NOS CPT-4: J3301 07/02/2018 ROUTINE VENIPUNCTURE CPT-4: 74072 06/22/2018 ANTISTREPTOLYSIN O T ITER CPT-4: 44240 06/22/2018 ROUTINE VENIPUNCTURE CPT-4: 68331 06/17/2018 PROTHROMBIN TIME CPT-4: 78571 06/17/2018 URINE CULTURE/ COLON Y COUNT CPT-4: 70008 06/17/2018 CEFTRIAXONE SODIUM I NJECTION CPT-4: J0696 05/12/2018 THER/PROPH/DIAG INJ SC/IM CPT-4: 01375 05/12/2018 PROTHROMBIN TIME CPT-4: 97782 05/11/2018 CEFTRIAXONE SODIUM I NJECTION CPT-4: J0696 05/11/2018 THER/PROPH/DIAG INJ SC/IM CPT-4: 48632 05/11/2018 ROUTINE VENIPUNCTURE CPT-4: 09432 04/30/2018 PROTHROMBIN TIME CPT-4: 87873 04/30/2018 THER/PROPH/DIAG INJ SC/IM CPT-4: 10049 04/02/2018 TRIAMCINOLONE ACET I NJ NOS CPT-4: J3301 04/02/2018 IIV4 VACCINE 3 YRS+ IM AND UP CPT-4: 52964 03/24/2018 IMMUNIZATION ADMIN CPT- 4: 99948 03/24/2018 ROUTINE VENIPUNCTURE CPT-4: 29544 03/24/2018 PT CPT-4: 3471118 03/24/2018 PROTHROMBIN TIME CPT-4: 19349 02/24/2018 ROUTINE VENIPUNCTURE CPT-4: 67003 02/24/2018 ROUTINE VENIPUNCTURE CPT-4: 36778 02/05/2018 PROTHROMBIN TIME CPT-4: 35714 02/05/2018 URINE CULTURE/ COLON Y COUNT CPT-4: 02393 02/05/2018 CEFTRIAXONE SODIUM I NJECTION CPT-4: J0696 01/29/2018 THER/PROPH/DIAG INJ SC/IM CPT-4: 44414 01/29/2018 CEFTRIAXONE SODIUM I NJECTION CPT-4: J0696 01/28/2018 THER/PROPH/DIAG INJ SC/IM CPT-4: 36446 01/28/2018 URINALYSIS NONAUTO W /O SCOPE CPT-4: 39573 01/26/2018 URINE CULTURE/ COLON Y COUNT CPT-4: 21226 01/26/2018 ROUTINE VENIPUNCTURE CPT-4: 15612 01/01/2018 PROTHROMBIN TIME CPT-4: 01571 01/01/2018 THER/PROPH/DIAG INJ SC/IM CPT-4: 02431 12/25/2017 TRIAMCINOLONE ACET I NJ NOS CPT-4: J3301 12/25/2017 DEXAMETHASONE SODIUM PHOS CPT-4: J1100 12/25/2017 STREP A ASSAY W/OPTIC CPT-4: 13663 12/11/2017 CEFTRIAXONE SODIUM I NJECTION CPT-4: J0696 12/11/2017 THER/PROPH/DIAG INJ SC/IM CPT-4: 59365 12/11/2017 ROUTINE VENIPUNCTURE CPT-4: 88810 12/01/2017 ANTISTREPTOLYSIN O T ITER CPT-4: 32434 12/01/2017 PROTHROMBIN TIME CPT-4: 29988 12/01/2017 VITAMIN D TOTAL (25 HYDROXY) CPT-4: 21015 12/01/2017 VITAMIN B-12 CPT-4: 42616 12/01/2017 SPECIMEN HANDLING OF FICE-LAB CPT-4: 23066 11/05/2017 ROUTINE VENIPUNCTURE CPT-4: 26333 10/14/2017 ANTISTREPTOLYSIN O T ITER CPT-4: 30762 10/14/2017 ROUTINE VENIPUNCTURE CPT-4: 23948 10/06/2017 PROTHROMBIN TIME CPT-4: 38080 10/06/2017 THER/PROPH/DIAG INJ SC/IM CPT-4: 68038 10/06/2017 TRIAMCINOLONE ACET I NJ NOS CPT-4: J3301 10/06/2017 ROUTINE VENIPUNCTURE CPT-4: 70090 10/01/2017 VITAMIN B-12 CPT-4: 42752 10/01/2017 FOLIC ACID CPT-4: 24805 10/01/2017 ASSAY THYROID STIM H ORMONE CPT-4: 31850 10/01/2017 ASSAY OF FREE THYROXINE CPT-4: 93315 10/01/2017 ASSAY TRIIODOTHYRONI NE (T3) CPT-4: 05274 10/01/2017 ASSAY OF BLOOD/URIC ACID CPT-4: 42394 10/01/2017 RHEUMATOID FACTOR QUANT CPT-4: 55658 10/01/2017 RBC SED RATE AUTOMATED CPT-4: 74264 10/01/2017 ANTISTREPTOLYSIN O T ITER CPT-4: 70746 10/01/2017 ASSAY OF IRON CPT-4: 06866 10/01/2017 ASSAY OF FERRITIN CPT-4: 07940 10/01/2017 ANTINUCLEAR ANTIBODIES CPT-4: 91573 10/01/2017 A1C HPLC CPT-4: 28949 10/01/2017 VITAMIN D TOTAL (25 HYDROXY) CPT-4: 77281 10/01/2017 THER/PROPH/DIAG INJ SC/IM CPT-4: 40265 09/05/2017 TRIAMCINOLONE ACET I NJ NOS CPT-4: J3301 09/05/2017 URINALYSIS NONAUTO W /O SCOPE CPT-4: 18862 09/05/2017 URINE CULTURE/ COLON Y COUNT CPT-4: 42956 09/05/2017 ROUTINE VENIPUNCTURE CPT-4: 29205 09/04/2017 PROTHROMBIN TIME CPT-4: 42033 09/04/2017 ROUTINE VENIPUNCTURE CPT-4: 93404 08/07/2017 COMPLETE CBC W/AUTO DIFF WBC CPT-4: 21218 08/07/2017 COMPREHEN METABOLIC PANEL CPT-4: 47361 08/07/2017 PROTHROMBIN TIME CPT-4: 97355 08/07/2017 INFLUENZA ASSAY W/OPTIC CPT-4: 27700 07/15/2017 ROUTINE VENIPUNCTURE CPT-4: 55471 07/15/2017 COMPREHEN METABOLIC PANEL CPT-4: 83160 07/15/2017 COMPLETE CBC W/AUTO DIFF WBC CPT-4: 95910 07/15/2017 CEFTRIAXONE SODIUM I NJECTION CPT-4: J0696 07/04/2017 THER/PROPH/DIAG INJ SC/IM CPT-4: 49567 07/04/2017 THER/PROPH/DIAG INJ SC/IM CPT-4: 93965 07/04/2017 TRIAMCINOLONE ACET I NJ NOS CPT-4: J3301 07/04/2017 CEFTRIAXONE SODIUM I NJECTION CPT-4: J0696 07/02/2017 THER/PROPH/DIAG INJ SC/IM CPT-4: 01379 07/02/2017 CEFTRIAXONE SODIUM I NJECTION CPT-4: J0696 07/01/2017 THER/PROPH/DIAG INJ SC/IM CPT-4: 98322 07/01/2017 ROUTINE VENIPUNCTURE CPT-4: 14001 06/19/2017 PROTHROMBIN TIME CPT-4: 07435 06/19/2017 THER/PROPH/DIAG INJ SC/IM CPT-4: 38640 04/01/2017 TRIAMCINOLONE ACET I NJ NOS CPT-4: J3301 04/01/2017 ROUTINE VENIPUNCTURE CPT-4: 48703 02/10/2017 PROTHROMBIN TIME CPT-4: 40063 02/10/2017 URINALYSIS NONAUTO W /O SCOPE CPT-4: 53115 02/10/2017 URINE CULTURE/ COLON Y COUNT CPT-4: 86445 02/10/2017 ROUTINE VENIPUNCTURE CPT-4: 47790 02/05/2017 PROTHROMBIN TIME CPT-4: 42465 02/05/2017 THROAT CULTURE CPT-4: 95418 02/03/2017 STREP A ASSAY W/OPTIC CPT-4: 64433 01/13/2017 ROUTINE VENIPUNCTURE CPT-4: 54425 12/18/2016 PROTHROMBIN TIME CPT-4: 11969 12/18/2016 URINE CULTURE/ COLON Y COUNT CPT-4: 95038 08/27/2016 ASSAY THYROID STIM H ORMONE CPT-4: 58063 08/27/2016 COMPREHEN METABOLIC PANEL CPT-4: 17190 08/27/2016 COMPLETE CBC W/AUTO DIFF WBC CPT-4: 37763 08/27/2016 PROTHROMBIN TIME CPT-4: 86980 08/27/2016 ROUTINE VENIPUNCTURE CPT-4: 42652 08/27/2016 ROUTINE VENIPUNCTURE CPT-4: 02630 05/24/2016 COMPREHEN METABOLIC PANEL CPT-4: 41908 05/24/2016 PROTHROMBIN TIME CPT-4: 79695 05/24/2016 URINALYSIS NONAUTO W /O SCOPE CPT-4: 91493 04/23/2016 URINE CULTURE/ COLON Y COUNT CPT-4: 12288 04/23/2016 PRESCRIP TRANSMIT A ERX SY CPT-4: G8553 04/23/2016 AEROBIC WOUND CULTUR E & STN CPT-4: 16106 04/17/2016 ROUTINE VENIPUNCTURE CPT-4: 60483 04/11/2016 PROTHROMBIN TIME CPT-4: 85059 04/11/2016 ROUTINE VENIPUNCTURE CPT-4: 07759 03/12/2016 COMPLETE CBC W/AUTO DIFF WBC CPT-4: 54822 03/12/2016 COMPREHEN METABOLIC PANEL CPT-4: 05648 03/12/2016 ASSAY THYROID STIM H ORMONE CPT-4: 32792 03/12/2016 PROTHROMBIN TIME CPT-4: 28896 03/12/2016 ROUTINE VENIPUNCTURE CPT-4: 17696 02/12/2016 PROTHROMBIN TIME CPT-4: 49789 02/12/2016 ROUTINE VENIPUNCTURE CPT-4: 93959 02/01/2016 PROTHROMBIN TIME CPT-4: 42342 02/01/2016 ROUTINE VENIPUNCTURE CPT-4: 20421 01/22/2016 PROTHROMBIN TIME CPT-4: 65502 01/22/2016 ROUTINE VENIPUNCTURE CPT-4: 69485 11/10/2015 PROTHROMBIN TIME CPT-4: 67546 11/10/2015 CEFTRIAXONE SODIUM I NJECTION CPT-4: J0696 11/10/2015 THER/PROPH/DIAG INJ SC/IM CPT-4: 98722 11/10/2015 EB VIRUS VCA G/M + E BNA + EA CPT-4: 00252|18815 x 2|85330 016 THROAT CULTURE CPT-4: 05118 11/09/2015 STREP A ASSAY W/OPTIC CPT-4: 27417 11/09/2015 STREP A ASSAY W/OPTIC CPT-4: 28775 10/02/2015 ROUTINE VENIPUNCTURE CPT-4: 04766 09/29/2015 COMPLETE CBC W/AUTO DIFF WBC CPT-4: 21040 09/29/2015 ASSAY OF IRON CPT-4: 33519 09/29/2015 PROTHROMBIN TIME CPT-4: 90075 09/29/2015 ROUTINE VENIPUNCTURE CPT-4: 79625 07/27/2015 PROTHROMBIN TIME CPT-4: 67256 07/27/2015 URINALYSIS NONAUTO W /O SCOPE CPT-4: 55727 06/30/2015 URINE CULTURE/ COLON Y COUNT CPT-4: 20494 06/30/2015 ROUTINE VENIPUNCTURE CPT-4: 71507 06/21/2015 PROTHROMBIN TIME CPT-4: 61537 06/21/2015 URINE CULTURE/ COLON Y COUNT CPT-4: 84815 05/31/2015 ROUTINE VENIPUNCTURE CPT-4: 64596 05/24/2015 PROTHROMBIN TIME CPT-4: 52560 05/24/2015 URINALYSIS NONAUTO W /O SCOPE CPT-4: 24054 05/24/2015 Vital Signs Date Vital 03/08/2019 Blood [...] 1: 122/70 Code: 8480-6 BMI: 32.2 Code: 67107-6 Heart Rate 1: 88 bpm Height: 5'3" Respiratory Rate: 20 bpm SpO2: 96% Temperature: 36.8 (C ) / 98.2 (F) Weight: 182 lbs 07/23/2018 Blood Pressure 1: 132/80 Code: 8480-6 Heart Rate 1: 84 bpm Respiratory Rate: 20 bpm SpO2: 96% Temperature: 36.6 (C ) / 97.8 (F) Weight: 187 lbs 07/08/2018 Blood Pressure 1: 122/70 Code: 8480-6 BMI: 32.2 Code: 82471-3 Heart Rate 1: 88 bpm Height: 5'3" Respiratory Rate: 20 bpm Temperature: 36.6 (C ) / 97.8 (F) Weight: 182 lbs 07/02/2018 Blood Pressure 1: 124/68 Code: 8480-6 BMI: 32.8 Code: 35501-5 Heart Rate 1: 84 bpm Height: 5'3" Respiratory Rate: 20 bpm SpO2: 98% Temperature: 36.3 (C ) / 97.3 (F) Weight: 185 lbs 06/02/2018 Blood Pressure 1: 132/90 Code: 8480-6 Heart Rate 1: 84 bpm Respiratory Rate: 18 bpm SpO2: 97% Temperature: 36.6 (C ) / 97.9 (F) Weight: 180 lbs 05/11/2018 Blood Pressure 1: 124/80 Code: 8480-6 BMI: 31.7 Code: 79037-4 Heart Rate 1: 88 bpm Height: 5'3" Respiratory Rate: 20 bpm Temperature: 37.0 (C ) / 98.6 (F) Weight: 179 lbs 04/02/2018 Blood Pressure 1: 122/80 Code: 8480-6 Heart Rate 1: 78 bpm Respiratory Rate: 18 bpm SpO2: 97% Temperature: 36.2 (C ) / 97.1 (F) Weight: 181 lbs 8 oz 03/16/2018 Blood Pressure 1: 114/82 Code: 8480-6 BMI: 31.4 Code: 72999-2 Heart Rate 1: 76 bpm Height: 5'3" Respiratory Rate: 20 bpm Temperature: 37.0 (C ) / 98.6 (F) Weight: 177 lbs 02/16/2018 Blood Pressure 1: 114/72 Code: 8480-6 BMI: 31.7 Code: 46371-7 Heart Rate 1: 84 bpm Height: 5'3" Respiratory Rate: 20 bpm Temperature: 37.0 (C ) / 98.6 (F) Weight: 179 lbs 01/26/2018 Blood Pressure 1: 118/78 Code: 8480-6 BMI: 31.7 Code: 53541-8 Heart Rate 1: 80 bpm Height: 5'3" Respiratory Rate: 20 bpm SpO2: 98% Temperature: 36.4 (C ) / 97.6 (F) Weight: 179 lbs 01/01/2018 Blood Pressure 1: 112/78 Code: 8480-6 Heart Rate 1: 86 bpm Height: 5'3" Respiratory Rate: 22 bpm SpO2: 98% Temperature: 36.6 (C ) / 97.8 (F) Weight: 12/25/2017 Blood Pressure 1: 136/78 Code: 8480-6 BMI: 31.5 Code: 39412-6 Heart Rate 1: 84 bpm Height: 5'3" Respiratory Rate: 22 bpm SpO2: 98% Temperature: 36.6 (C ) / 97.9 (F) Weight: 178 lbs 12/11/2017 Blood Pressure 1: 122/74 Code: 8480-6 BMI: 31.2 Code: 97850-7 Heart Rate 1: 86 bpm Height: 5'3" Respiratory Rate: 24 bpm SpO2: 98% Temperature: 35.9 (C ) / 96.6 (F) Weight: 176 lbs 11/05/2017 Blood Pressure 1: 126/82 Code: 8480-6 BMI: 31.5 Code: 70965-1 Heart Rate 1: 84 bpm Height: 5'3" Respiratory Rate: 20 bpm SpO2: 97% Temperature: 36.8 (C ) / 98.3 (F) Weight: 178 lbs 10/06/2017 Blood Pressure 1: 114/78 Code: 8480-6 BMI: 31.4 Code: 18249-0 Heart Rate 1: 80 bpm Height: 5'3" Respiratory Rate: 20 bpm Temperature: 36.9 (C ) / 98.4 (F) Weight: 177 lbs 10/01/2017 Blood Pressure 1: 122/70 Code: 8480-6 BMI: 31.5 Code: 27654-7 Heart Rate 1: 84 bpm Height: 5'3" [...] 1: 132/78 Code: 8480-6 BMI: 32.1 Code: 53328-9 Heart Rate 1: 92 bpm Height: 5'3" Respiratory Rate: 20 bpm SpO2: 96% Temperature: 36.7 (C ) / 98.0 (F) Weight: 181 lbs 05/27/2017 Blood Pressure 1: 142/78 Code: 8480-6 Heart Rate 1: 90 bpm Height: 5'3" Respiratory Rate: 22 bpm SpO2: 98% Temperature: 36.1 (C ) / 97.0 (F) Weight: 05/20/2017 Blood Pressure 1: 122/76 Code: 8480-6 BMI: 31.2 Code: 57421-3 Heart Rate 1: 86 bpm Height: 5'3" Respiratory Rate: 20 bpm SpO2: 98% Temperature: 36.5 (C ) / 97.7 (F) Weight: 176 lbs 04/22/2017 Blood Pressure 1: 132/80 Code: 8480-6 BMI: 31.0 Code: 73740-3 Heart Rate 1: 84 bpm Height: 5'3" Respiratory Rate: 20 bpm Temperature: 36.8 (C ) / 98.2 (F) Weight: 175 lbs 04/01/2017 Blood Pressure 1: 124/70 Code: 8480-6 BMI: 30.8 Code: 06115-5 Heart Rate 1: 88 bpm Height: 5'3" Respiratory Rate: 20 bpm SpO2: 96% Temperature: 36.6 (C ) / 97.9 (F) Weight: 174 lbs 02/05/2017 Blood Pressure 1: 116/58 Code: 8480-6 Heart Rate 1: 96 bpm Height: 5'3" Respiratory Rate: 22 bpm SpO2: 99% Temperature: 36.7 (C ) / 98.1 (F) 01/13/2017 Blood Pressure 1: 136/78 Code: 8480-6 BMI: 30.3 Code: 49155-3 Heart Rate 1: 86 bpm Height: 5'3" Respiratory Rate: 18 bpm SpO2: 98% Temperature: 36.7 (C ) / 98.1 (F) Weight: 171 lbs 11/27/2016 Blood Pressure 1: 114/70 Code: 8480-6 BMI: 30.3 Code: 36993-0 Heart Rate 1: 76 bpm Height: 5'3" Respiratory Rate: 20 bpm SpO2: 96% Temperature: 36.7 (C ) / 98.0 (F) Weight: 171 lbs 08/27/2016 Blood Pressure 1: 126/70 Code: 8480-6 Heart Rate 1: 80 bpm Respiratory Rate: 20 bpm Temperature: 37.3 (C) / 99.2 (F) Weight: 172 lbs 07/08/2016 Blood Pressure 1: 11670 Code: 8480-6 Heart Rate 1: 96 bpm [...] 1: 122/78 Code: 8480-6 BMI: 31.0 Code: 72032-2 Heart Rate 1: 76 bpm Height: 5'3" Respiratory Rate: 20 bpm Temperature: 36.8 (C ) / 98.2 (F) Weight: 175 lbs 11/10/2015 Blood Pressure 1: 116/72 Code: 8480-6 BMI: 31.2 Code: 66171-7 Heart Rate 1: 76 bpm Height: 5'3" Respiratory Rate: 20 bpm Temperature: 37.2 (C ) / 98.9 (F) Weight: 176 lbs 11/09/2015 Blood Pressure 1: 122/78 Code: 8480-6 Heart Rate 1: 82 bpm Respiratory Rate: 20 bpm SpO2: 96% Temperature: 36.4 (C ) / 97.6 (F) Weight: 176 lbs 10/10/2015 BMI: 31.5 Code: 16725-2 Heart Rate 1: 72 bpm Height: 5'3" Respiratory Rate: 20 bpm Temperature: 36.6 (C ) / 97.8 (F) Weight: 178 lbs 10/02/2015 Blood Pressure 1: 124/78 Code: 8480-6 Heart Rate 1: 92 bpm Respiratory Rate: 22 bpm SpO2: 96% Temperature: 36.7 (C ) / 98.1 (F) Weight: 178 lbs 07/10/2015 Blood Pressure 1: 112/60 Code: 8480-6 BMI: 33.1 Code: 99248-4 Heart Rate 1: 92 bpm Height: 5'3" Respiratory Rate: 20 bpm Temperature: 36.9 (C ) / 98.4 (F) Weight: 187 lbs 06/27/2015 Blood Pressure 1: 106/62 Code: 8480-6 Heart Rate 1: 88 bpm Respiratory Rate: 22 bpm Temperature: 37.0 (C) / 98.6 (F) Weight: 190 lbs 06/08/2015 Blood Pressure 1: 112/78 Code: 8480-6 BMI: 33.1 Code: 87595-4 Heart Rate 1: 84 bpm Height: 5'3" Respiratory Rate: 20 bpm Temperature: 37.0 (C ) / 98.6 (F) Weight: 187 lbs 05/24/2015 Blood Pressure 1: 126/82 Code: 8480-6 BMI: 33.1 Code: 87948-5 Heart Rate 1: 92 bpm Height: 5'3" [...] days ago 07/15/2017 None headache Location diffus sushil 07/15/2017 None headache Quality acute 07/15/2017 None [...] ago 07/01/2017 None cough Location in the roat 05/27/2017 None cough Quality acute 05/27/2017 [...] anxiety Quality worsenin g. 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] Ivon Sky KRISTINE SHAW [facility] CPT-4: 53491 03/08/2019 ([id number]) OFFICE/OUTPA TIENT VISIT EST Diagnosis: Epistaxis[ICD10: R04.0] Diagnosis: Radiculopathy, site unspecified[ICD10: M54.10] Diagnosis: Encounter for therapeutic drug level monitoring[ICD10: Z51.81] Kristine BRAMBILA [facility] CPT-4: 75942 02/17/2019 ([id number]) OFFICE/OUTPA TIENT VISIT EST Diagnosis: Unspecified urinary incontinence[ICD10: R32] Diagnosis: Irritable bowel syndrome with constipation[ICD10: K58.1] Diagnosis: Low back pain[ICD10: M54.5] Ivon BRAMBILA DO [facility] CPT-4: 61448 02/08/2019 ([id number]) OFFICE/OUTPA TIENT VISIT EST Diagnosis: Other fatigue[ICD10: R53.83] Diagnosis: COUGH[ICD10: R05] Diagnosis: Acute pharyngitis due to other specified organisms[ICD10: J02.8] Diagnosis: MCC (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[ICD10: Z79.01] Diagnosis: Abnormal levels of other serum enzymes[ICD10: R74.8] Ivon SHAW [facility] CPT-4: 50645 01/19/2019 ([id number]) OFFICE/OUTPA TIENT VISIT EST Diagnosis: Otalgia, left ear[ICD10: H92.02] Diagnosis: Other fatigue[ICD10: R53.83] Ivon BRAMBILA [facility] CPT-4: 30799 01/04/2019 ([id number]) NURSE/OUTPAT IENT VISIT EST Diagnosis: Dehydration[ICD10: E86.0] Kristine BRAMBILA [facility] CPT-4: 89533 12/18/2018 ([id number]) NURSE/OUTPAT IENT VISIT EST Diagnosis: Dehydration[ICD10: E86.0] Kristine BRAMBILA DO [facility] CPT-4: 80827 12/16/2018 ([id number]) OFFICE/OUTPA TIENT VISIT EST Diagnosis: Other fatigue[ICD10: R53.83] Diagnosis: Anemia, unspecified[ICD10: D64.9] Diagnosis: Benign lipomatous neoplasm of skin and subcutaneous tissue of trunk[ICD10: D17.1] Kristine BRAMBILA [facility] CPT-4: 31006 12/03/2018 ([id number]) OFFICE/OUTPA TIENT VISIT EST Diagnosis: Acute pharyngitis, unspecified[ICD10: J02.9] Diagnosis: Enlarged lymph nodes, unspecified[ICD10: R59.9] Ivon SHAW [facility] CPT-4: 14089 12/02/2018 ([id number]) OFFICE/OUTPA TIENT VISIT EST Diagnosis: Encounter for therapeutic drug level monitoring[ICD10: Z51.81] Diagnosis: MCC (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[ICD10: Z79.01] Diagnosis: Acute suppurative otitis media without spontaneous rupture of ear drum, left ear[ICD10: H66.002] Ivon BRAMBILA [facility] CPT-4: 72000 11/30/2018 ([id number]) NURSE/OUTPAT IENT VISIT EST Diagnosis: Dysuria[ICD10: R30.0] Kristine BRAMBILA DO [facility] CPT-4: 82388 11/20/2018 ([id number]) NURSE/OUTPAT IENT VISIT EST Diagnosis: Streptococcal pharyngitis[ICD10: J02.0] Kristine TERRELLR [facility] CPT-4: 17120 11/12/2018 ([id number]) OFFICE/OUTPA TIENT VISIT EST Diagnosis: Streptococcal pharyngitis[ICD10: J02.0] Lulu Navarro KRISTINE BRAMBILA [facility] CPT-4: 82315 11/11/2018 ([id number]) NURSE/OUTPAT IENT VISIT EST Diagnosis: Personal history of diseases of the blood and blood-forming organs and certain disorders involving the immune mechanism[ICD10: Z86.2] Kristine TERRELLR [facility] CPT-4: 04242 10/27/2018 ([id number]) NURSE/OUTPAT IENT VISIT EST Diagnosis: Other allergic rhinitis[ICD10: J30.89] Kristine SINCLAIR NDER [facility] CPT-4: 47325 10/09/2018 ([id number]) OFFICE/OUTPA TIENT VISIT EST Diagnosis: Acute recurrent maxillary sinusitis[ICD10: J01.01] Lulu Navarro KRISTINE BRAMBILA [facility] CPT-4: 93683 10/08/2018 ([id number]) OFFICE/OUTPA TIENT VISIT EST Diagnosis: Acute recurrent maxillary sinusitis[ICD10: J01.01] Diagnosis: Acute pharyngitis, unspecified[ICD10: J02.9] Lulu BRAMBILA DO [facility] CPT-4: 75709 10/07/2018 ([id number]) OFFICE/OUTPA TIENT VISIT EST Diagnosis: Dizziness and giddiness[ICD10: R42] Diagnosis: Personal history of pulmonary embolism[ICD10: Z86.711] Lulu BRAMBILA DO [facility] CPT-4: 39641 09/25/2018 ([id number]) NURSE/OUTPAT IENT VISIT EST Diagnosis: Dysuria[ICD10: R30.0] Kristine Patty YULINE KalinImelda [facility] CPT-4: 63651 09/10/2018 ([id number]) OFFICE/OUTPA TIENT VISIT EST Diagnosis: Streptococcal infection, unspecified site[ICD10: A49.1] Diagnosis: Furuncle right hand[ICD10: L02.521] Diagnosis: Localized swelling, mass and lump, neck[ICD10: R22.1] Kristine Yonathanjanett MINER KalinImelda YONATHAN ROWLAND [facility] CPT-4: 44339 09/08/2018 ([id number]) NURSE/OUTPAT IENT VISIT EST Diagnosis: Encounter for therapeutic drug level monitoring[ICD10: Z51.81] Kristine Yonathanjanett MINER KalinImelda PATTY [facility] CPT-4: 23956 08/14/2018 ([id number]) OFFICE/OUTPA TIENT VISIT EST Diagnosis: Acute sinusitis, unspecified[ICD10: J01.90] Diagnosis: Otalgia, left ear[ICD10: H92.02] Ivon YULINE KalinImelda PATTY [facility] CPT-4: 82641 07/23/2018 ([id number]) OFFICE/OUTPA TIENT VISIT EST Diagnosis: Streptococcal infection, unspecified site[ICD10: A49.1] Kristine MINER KalinImelda YONATHAN ROWLAND [facility] CPT-4: 45274 07/08/2018 ([id number]) OFFICE/OUTPA TIENT VISIT EST Diagnosis: Periapical abscess with sinus[ICD10: K04.6] Diagnosis: Streptococcal infection, unspecified site[ICD10: A49.1] Diagnosis: Localized enlarged lymph nodes[ICD10: R59.0] Ivon BALL ER [facility] CPT-4: 07814 07/02/2018 ([id number]) NURSE/OUTPAT IENT VISIT EST Diagnosis: Pain in unspecified joint[ICD10: M25.50] Kristine ROWLAND [facility] CPT-4: 58472 06/22/2018 ([id number]) NURSE/OUTPAT IENT VISIT EST Diagnosis: Paroxysmal tachycardia, unspecified[ICD10: I47.9] Diagnosis: Dysuria[ICD10: R30.0] Kristine BALLER [facility] CPT-4: 94481 06/17/2018 ([id number]) OFFICE/OUTPA TIENT VISIT EST Diagnosis: Acute sinusitis, unspecified[ICD10: J01.90] Ivon BALL ER [facility] CPT-4: 36958 06/02/2018 ([id number]) NURSE/OUTPAT IENT VISIT EST Diagnosis: Acute mastoiditis without complications, left ear[ICD10: H70.002] Kristine SINCLAIRNDER [facility] CPT-4: 05970 05/12/2018 ([id number]) OFFICE/OUTPA TIENT VISIT EST Diagnosis: Acute mastoiditis without complications, left ear[ICD10: H70.002] Diagnosis: MCC (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[ICD10: Z79.01] Ivon BALL ER DO [facility] CPT-4: 50942 05/11/2018 ([id number]) NURSE/OUTPAT IENT VISIT EST Diagnosis: Personal history of diseases of the blood and blood-forming organs and certain disorders involving the immune mechanism[ICD10: Z86.2] Kristine SINCLAIR NDER [facility] CPT-4: 85095 04/30/2018 ([id number]) OFFICE/OUTPA TIENT VISIT EST Diagnosis: Acute sinusitis, unspecified[ICD10: J01.90] Ivon SHAW DO [facility] CPT-4: 64716 04/02/2018 ([id number]) NURSE/OUTPAT IENT VISIT EST Diagnosis: FLU VACCINE[ICD10: Z23] Diagnosis: Encounter for therapeutic drug level monitoring[ICD10: Z51.81] Diagnosis: MCC (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[ICD10: Z79.01] Kristine BRAMBILA DO [facility] CPT-4: 79326 03/24/2018 ([id number]) OFFICE/OUTPA TIENT VISIT EST Diagnosis: Other allergic rhinitis[ICD10: J30.89] Diagnosis: Migraine, unspecified, not intractable, without status migrainosus[ICD10: G43.909] Ivon BRAMBILA DO [facility] CPT-4: 45089 03/16/2018 ([id number]) NURSE/OUTPAT IENT VISIT EST Diagnosis: Encounter for therapeutic drug level monitoring[ICD10: Z51.81] Kristine BRAMBILA DO [facility] CPT-4: 91269 02/24/2018 OFFICE/OUTPATIENT SIT EST Diagnosis: Diarrhea, unspecified[ICD10: R19.7] Diagnosis: Abdominal distension (gaseous)[ICD10: R14.0] Diagnosis: Epigastric pain[ICD10: R10.13] Kristine BRAMBILA DO [facility] CPT-4: 63488 02/16/2018 ([id number]) NURSE/OUTPAT IENT VISIT EST Diagnosis: MCC (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[ICD10: Z79.01] Diagnosis: Urinary tract infection, site not specified[ICD10: N39.0] Kristine BRAMBILA DO [facility] CPT-4: 02206 02/05/2018 ([id number]) NURSE/OUTPAT IENT VISIT EST Diagnosis: Urinary tract infection, site not specified[ICD10: N39.0] Kristine BRAMBILA DO [facility] CPT-4: 26343 01/29/2018 ([id number]) NURSE/OUTPAT IENT VISIT EST Diagnosis: Urinary tract infection, site not specified[ICD10: N39.0] Kristine BRAMBILA DO [facility] CPT-4: 50264 01/28/2018 ([id number]) OFFICE/OUTPA TIENT VISIT EST Diagnosis: Other allergic rhinitis[ICD10: J30.89] Diagnosis: Acute suppurative otitis media without spontaneous rupture of ear drum, right ear[ICD10: H66.001] Diagnosis: Contact with and (suspected) exposure to potentially hazardous body fluids[ICD10: Z77.21] Ivon BRAMBILA DO [facility] CPT-4: 88248 01/26/2018 ([id number]) OFFICE/OUTPA TIENT VISIT EST Diagnosis: Otalgia, left ear[ICD10: H92.02] Diagnosis: Other lesions of oral mucosa[ICD10: K13.79] Ivon BALL [facility] CPT-4: 43447 01/01/2018 ([id number]) OFFICE/OUTPA TIENT VISIT EST Diagnosis: Acute suppurative otitis media with spontaneous rupture of ear drum, left ear[ICD10: H66.012] Diagnosis: Migraine, unspecified, not intractable, without status migrainosus[ICD10: G43.909] Ivon BRAMBILA DO [facility] CPT-4: 24180 12/25/2017 ([id number]) OFFICE/OUTPA TIENT VISIT EST Diagnosis: Acute pharyngitis, unspecified[ICD10: J02.9] Ivon SHAW [facility] CPT-4: 24269 12/11/2017 ([id number]) NURSE/OUTPAT IENT VISIT EST Diagnosis: Encounter for therapeutic drug level monitoring[ICD10: Z51.81] Diagnosis: Other specified abnormal immunological findings in serum[ICD10: R76.8] Diagnosis: Vitamin D deficiency, unspecified[ICD10: E55.9] Diagnosis: Tachycardia, unspecified[ICD10: R00.0] Kristine ROWLAND [facility] CPT-4: 65610 12/01/2017 ([id number]) PREV VISIT E ST AGE 40-64 Diagnosis: Encounter for general adult medical examination without abnormal findings[ICD10: Z00.00] Diagnosis: Encounter for gynecological examination (general) (routine) without abnormal findings[ICD10: Z01.419] Kristine BRAMBILA [facility] CPT-4: 14153 11/05/2017 ([id number]) OFFICE/OUTPA TIENT VISIT EST Diagnosis: Other specified abnormal immunological findings in serum[ICD10: R76.8] Kristine BRAMBILA [facility] CPT-4: 07678 10/14/2017 ([id number]) OFFICE/OUTPA TIENT VISIT EST Diagnosis: Pain in right shoulder[ICD10: M25.511] 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 CPT-4: 17292 09/05/2017 ([id number]) OFFICE/OUTPA TIENT VISIT EST Diagnosis: MCC (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[ICD10: Z79.01] Kristine BRAMBILA DO [facility] CPT-4: 54095 09/04/2017 ([id number]) OFFICE/OUTPA TIENT VISIT EST Diagnosis: Fever, unspecified[ICD10: R50.9] Diagnosis: Encounter for therapeutic drug level monitoring[ICD10: Z51.81] Kristine BRAMBILA DO [facility] CPT-4: 36402 08/07/2017 OFFICE/OUTPATIENT SIT EST Diagnosis: Acute upper respiratory infection, unspecified[ICD10: J06.9] Diagnosis: Gastro-esophageal reflux disease without esophagitis[ICD10: K21.9] Diagnosis: Fever, unspecified[ICD10: R50.9] Ivon BRAMBILA DO [facility] CPT-4: 40283 07/15/2017 ([id number]) OFFICE/OUTPA TIENT VISIT EST Diagnosis: Otitis media, unspecified, left ear[ICD10: H66.92] Diagnosis: Localized enlarged lymph nodes[ICD10: R59.0] Kristine ROWLAND [facility] CPT-4: 29499 07/04/2017 ([id number]) OFFICE/OUTPA TIENT VISIT EST Diagnosis: Localized enlarged lymph nodes[ICD10: R59.0] Diagnosis: Otitis media, unspecified, left ear[ICD10: H66.92] Kristine ROWLAND [facility] CPT-4: 51332 07/02/2017 OFFICE/OUTPATIENT SIT EST Diagnosis: Otitis media, unspecified, left ear[ICD10: H66.92] Diagnosis: Localized enlarged lymph nodes[ICD10: R59.0] vIon SHAW [facility] CPT-4: 87540 07/01/2017 ([id number]) OFFICE/OUTPA TIENT VISIT EST Diagnosis: Encounter for therapeutic drug level monitoring[ICD10: Z51.81] Kristine BRAMBILA [facility] CPT-4: 08355 06/19/2017 OFFICE/OUTPATIENT SIT EST Diagnosis: Pneumonia, unspecified organism[ICD10: J18.9] Diagnosis: Insomnia, unspecified[ICD10: G47.00] Ivon BALL [facility] CPT-4: 29833 05/27/2017 OFFICE/OUTPATIENT SIT EST Diagnosis: Insomnia, unspecified[ICD10: G47.00] Diagnosis: Other chronic pain[ICD10: G89.29] Ivon BALL [facility] CPT-4: 82556 05/20/2017 ([id number]) OFFICE/OUTPA TIENT VISIT EST Diagnosis: Headache[ICD10: R51] Diagnosis: Diplopia[ICD10: H53.2] Kristine BRAMBILA [facility] CPT-4: 15515 04/22/2017 ([id number]) OFFICE/OUTPA TIENT VISIT EST Diagnosis: Acute sinusitis, unspecified[ICD10: J01.90] [facility] CPT-4: 10141 04/01/2017 ([id number]) OFFICE/OUTPA TIENT VISIT EST Diagnosis: Pelvic and perineal pain[ICD10: R10.2] Diagnosis: MCC (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[ICD10: Z79.01] Diagnosis: Hematuria, unspecified[ICD10: R31.9] Kristine TERRELLR [facility] CPT-4: 20315 02/10/2017 ([id number]) OFFICE/OUTPA TIENT VISIT EST Diagnosis: Acute pharyngitis, unspecified[ICD10: J02.9] Diagnosis: Cervicalgia[ICD10: M54.2] Diagnosis: Localized enlarged lymph nodes[ICD10: R59.0] Diagnosis: Acute stress reaction[ICD10: F43.0] Kristine SINCLAIR NDER [facility] CPT-4: 36403 02/05/2017 ([id number]) OFFICE/OUTPA TIENT VISIT EST Diagnosis: Acute pharyngitis due to other specified organisms[ICD10: J02.8] Kristine BRAMBILA DO 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 CPT-4: 94481 12/18/2016 ([id number]) OFFICE/OUTPA TIENT VISIT EST Diagnosis: Pain in unspecified joint[ICD10: M25.50] Kristine ROWLAND 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 CPT-4: 97167 08/27/2016 ([id number]) OFFICE/OUTPA TIENT VISIT EST Diagnosis: 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[ICD10: Z79.01] Diagnosis: Abnormal levels of other serum enzymes[ICD10: R74.8] Kristine ROWLAND [facility] CPT-4: 06524 05/24/2016 ([id number]) OFFICE/OUTPA TIENT VISIT EST Diagnosis: Urinary tract infection, site not specified[ICD10: N39.0] Nayeli Anderson KRISTINE BRAMBILA DO [facility] CPT-4: 71165 04/23/2016 ([id number]) OFFICE/OUTPA TIENT VISIT EST Diagnosis: Abrasion, left lower leg, initial encounter[ICD10: S80.812A] Nayeli HOOKSQUELINE KalinImelda PATTY 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 CPT-4: 44753 04/11/2016 ([id number]) OFFICE/OUTPA TIENT VISIT EST Diagnosis: Migraine, unspecified, not intractable, without status migrainosus[ICD10: G43.909] Diagnosis: Fibromyalgia[ICD10: M79.7] Kristine YULINE KalinImelda PATTY 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 CPT-4: 11862 02/01/2016 ([id number]) OFFICE/OUTPA TIENT VISIT EST Diagnosis: Encounter for therapeutic drug level monitoring[ICD10: Z51.81] Kristine Patty KRISTINE KalinImelda PATTY 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 CPT-4: 64727 11/10/2015 ([id number]) OFFICE/OUTPA TIENT VISIT EST Diagnosis: Acute tonsillitis, unspecified[ICD10: J03.90] Nayelimaxx Anderson KRISTINE Moran PATTY [facility] CPT-4: 98785 11/09/2015 ([id number]) OFFICE/OUTPA TIENT VISIT EST Diagnosis: Localized swelling, mass and lump, neck[ICD10: R22.1] Diagnosis: Pain in left hip[ICD10: M25.552] Diagnosis: Pain in right hip[ICD10: M25.551] Kristine MINER KalinImelda YONATHAN ROWLAND [facility] CPT-4: 99004 10/10/2015 ([id number]) OFFICE/OUTPA TIENT VISIT EST Diagnosis: Other fatigue[ICD10: R53.83] Diagnosis: Localized swelling, mass and lump, neck[ICD10: R22.1] Diagnosis: Generalized enlarged lymph nodes[ICD10: R59.1] Diagnosis: MCC (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[ICD10: Z79.01] Diagnosis: Candidiasis, unspecified[ICD10: B37.9] Diagnosis: Other chronic pain[ICD10: G89.29] Diagnosis: Acute upper respiratory infection, unspecified[ICD10: J06.9] Nayeli Moran YONATHANJANETT [facility] CPT-4: 10953 10/02/2015 ([id number]) OFFICE/OUTPA TIENT VISIT EST Diagnosis: 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[ICD10: Z79.01] Diagnosis: Other fatigue[ICD10: R53.83] Kristine Moran YONATHANJANETT [facility] CPT-4: 62960 09/29/2015 ([id number]) OFFICE/OUTPA TIENT VISIT EST Diagnosis: MCC (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[ICD10: Z79.01] Kristine Moran YONATHANJANETT [facility] CPT-4: 60363 07/27/2015 ([id number]) OFFICE/OUTPA TIENT VISIT EST Diagnosis: Fibromyalgia[ICD10: M79.7] Diagnosis: Tachycardia, unspecified[ICD10: R00.0] Kristine Moran YONATHAN JANETT [facility] CPT-4: 40650 07/10/2015 ([id number]) OFFICE/OUTPA TIENT VISIT EST Diagnosis: Encounter for therapeutic drug level monitoring[ICD10: Z51.81] Diagnosis: Dysuria[ICD10: R30.0] Kristine Moran YONATHANJANETT [facility] CPT-4: 97386 06/30/2015 OFFICE/OUTPATIENT SIT EST Diagnosis: Scar conditions and fibrosis of skin[ICD10: 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 Sera KAPOOR DO [facility] CPT-4: 13062 06/27/2015 ([id number]) OFFICE/OUTPA TIENT VISIT EST Diagnosis: MCC (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[ICD10: Z79.01] Kristine BRAMBILA [facility] CPT-4: 79182 06/21/2015 OFFICE/OUTPATIENT SIT EST Diagnosis: Fibromyalgia[ICD10: M79.7] Kristine BRAMBILA [facility] CPT-4: 27589 06/08/2015 ([id number]) OFFICE/OUTPA TIENT VISIT EST Diagnosis: Dysuria[ICD10: R30.0] Kristine BRAMBILA [facility] CPT-4: 71552 05/31/2015 OFFICE/OUTPATIENT SIT NEW Diagnosis: Localized enlarged lymph nodes[ICD10: R59.0] Diagnosis: Benign intracranial hypertension[ICD10: G93.2] Diagnosis: Personal history of pulmonary embolism[ICD10: Z86.711] Diagnosis: 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[ICD10: Z79.01] Diagnosis: Tachycardia, unspecified[ICD10: R00.0] Meli MINER S. Sera Yo que Vos [facility] CPT-4: 04528 05/24/2015 Plan of Care Planned Activity Notes C odes Status Date Visit Diagnosis Plan: MCC (current ) use of 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 Discussion: updated [...] ICD-10 : R21 03/08/2019 Appointment: Ivon Sky [address] [place], [place] [address] ACUTE ILLNESS 03/08/2019 Patient Education: mupirocin calcium- Op timizeRX Coupon [id number] https://www.[employer]/samplemd/resources/getResource/61/[email or web address].pdf Completed 03/08/2019 Visit Diagnosis Plan: Epistaxis Disc ussion: Afrin to right nares BID x 3 days Check PT/INR now ICD-9 : 784.7 ICD-10 : R04.0 02/17/2019 Visit Diagnosis Plan: Radiculopathy, site unspecified Discussion: Check L/S spine x-ray to start with ICD-9 : 724.4 ICD-10 : M54.10 02/17/2019 Appointment: Kristine Brambila [facility]el[facility] [facility] 02/17/2019 Care Plan: X-RAY EXAM L-S SPINE 2/3 VWS LOINC : 80632-2 Pending 02/17/2019 Appointment: Ivon Sky [address] [place], [place] [address] US CANCELED 02/16/2019 Visit Diagnosis Plan: Unspecified [...] ICD-10 : K58.1 02/08/2019 Appointment: Ivon Sky [address] [place], [place] [address] ACUTE ILLNESS 02/08/2019 Patient Education: Tererllsouleymane-HC- OptimizeRX Coupon [id number] https://www.[employer]/sampleYasuu/resources/getResource/61/[email or web address] Completed 02/08/2019 Visit Diagnosis Plan: Other fatigue [...] ICD-10 : J02.8 01/19/2019 Visit Diagnosis Plan: 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 ) use of 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 Discussion: pt/inr [...] ICD-10 : R05 01/19/2019 Appointment: Ivon Sky [address] [place], [place] [id number] ACUTE ILLNESS 01/19/2019 Visit Diagnosis Plan: Otalgia, [...] ICD-10 : R53.83 01/04/2019 Appointment: Ivon Sky [address] [place], [place] [address] ACUTE ILLNESS 01/04/2019 Appointment: Kristine Brambila WPtel: [address] [place] [address] LAB 12/18/2018 Appointment: Kristine Brambila WPtel: [address] [place] [address] ACUTE ILLNESS 12/16/2018 Visit Diagnosis Plan: Anemia, [...] : R53.83 12/03/2018 Appointment: Kristine Brambila WPtel: [address] [place] [address] ACUTE ILLNESS 12/03/2018 Visit Diagnosis Plan: Acute pharyngitis, unspecified Discussion: rapid strep negative. zithromax prescribed to cover for variety of infections due to painful, swollen lymph node as well. patient unable to tolerate medrol packs and had a steroid shot recently. ICD-9 : 462 ICD-10 : J02.9 12/02/2018 Visit Diagnosis Plan: Enlarged lymph nodes, unspecifie d Discussion: if no improvement in one week, call clininc and may need updated ultrasound of lymph node. ICD-9 : 785.6 ICD-10 : R59.9 12/02/2018 Appointment: Ivon Sky [address] [place] [address] FOLLOW UP 12/02/2018 Visit Diagnosis Plan: 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 ) use of 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 Discussion: pt/inr drawn in office ICD-9 : V58.61 ICD-10 : Z79.01 11/30/2018 Visit Diagnosis Plan: Acute suppurative otitis media without spontaneous rupture of ear drum, left ear Discussion: rocephin shot given in office. instructed to call or rtc with any new or worsening concerns. tylenol prn pain. ICD-9 : 382.00 ICD-10 : H66.002 11/30/2018 Appointment: Ivon SkyImelda [address] ACUTE ILLNESS 11/30/2018 Patient Education: Coumadin- OptimizeRX Coupon [id number] https://www.[employer]/sampleYasuu/resources/getResource/61/[email or web address] Completed 11/30/2018 Appointment: Kristine Brambila WPtel: [address] [place] [address] UA 11/20/2018 Appointment: Kristine Brambila WPtel: [address] [place] [address] US INJECTION 11/12/2018 Visit Diagnosis Plan: Streptococcal pharyngitis Discussion: Strep A- positive ASO titer today along with CBC. Rocephin 1 gram. RTC tmrw for another injection. Patient states understanding. ICD-9 : 034.0 ICD-10 : J02.0 11/11/2018 Appointment: Lulu Navarro [address] [place] [address] ACUTE ILLNESS 11/11/2018 Appointment: Kristine Brambila WPtel: [address] [place] [address] ACUTE ILLNESS 10/27/2018 Appointment: Kristine Brambila WPtel: [address] [place] [address] US INJECTION 10/09/2018 Visit Diagnosis Plan: Acute recurrent maxillary sinusi tis Discussion: Rocephin 1 gram administered in clinic- patient tolerated well. Continue with supportive treatment at home as well. Tylenol for headache. Salt water gargles and sinus rinses advised. Patient states understanding. ICD-9 : 461.0 ICD-10 : J01.01 10/08/2018 Appointment: Lulu Navarro [address] [place] [address] US INJECTION 10/08/2018 Visit Diagnosis Plan: Acute recurrent maxillary sinusi tis Discussion: Rocephin- 1 gram administered in clinic. Patient tolerated well. Sinus rinses encouraged. Rest and fluids. Tylenol or Motrin for pain and fever. FU PRN. Patient states understanding. ICD-9 : 461.0 ICD-10 : J01.01 10/07/2018 Appointment: Lulu Navarro [address] [place] [address] ACUTE ILLNESS 10/07/2018 Visit Diagnosis Plan: Dizziness [...] ICD-10 : R42 09/25/2018 Appointment: Lulu Navarro [address] [place] [address] ACUTE ILLNESS 09/25/2018 Appointment: Kristine Brambila WPtel: [address] [place] [address] UA 09/10/2018 Visit Diagnosis Plan: Furuncle right hand Discussion: Will see if resolves with antibiotics but if does not then will need removed/biopsied ICD-9 : 680.4 ICD-10 : L02.521 09/08/2018 Visit Diagnosis Plan: Localized swelling, mass and lum p, neck Discussion: Update neck/thyroid US ICD-9 : 784.2 ICD-10 : R22.1 09/08/2018 Visit Diagnosis Plan: Streptococcal infe ction, unspecified site Discussion: Rocephin 1gm IM x1 and fwup with cefdinir ICD-9 : 041.00 ICD-10 : A49.1 09/08/2018 Appointment: Kristine Brambila WPtel: [facility] ACUTE ILLNESS 09/08/2018 Patient Education: cefdinir- OptimizeRX Coupon [id number] https://www.[employer]/samplemd/resources/getResource/61/[email or web address] Completed 09/08/2018 Appointment: Kristine Brambila [facility]Ptel[facility] [address] [facility] [facility] 08/14/2018 Visit Diagnosis Plan: Acute sinusitis, [...] ICD-10 : H92.02 07/23/2018 Appointment: Ivon Sky [address] [place], [place] [address] ACUTE ILLNESS 07/23/2018 Patient Education: cyclobenzaprine- Opti mizeRX Coupon [id number] https://www.[employer]/samplemd/resources/getResource/61/[email or web address]-[email or web address].pdf Completed 07/23/2018 Visit Diagnosis Plan: Streptococcal infe ction, unspecified site Discussion: Randy Dove Sees dentist today t o assess tooth ICD-9 : 041.00 ICD-10 : A49.1 07/08/2018 Appointment: Kristine Brambila WPtel: [facility] FOLLOW UP 07/08/2018 Patient Education: penicillin V potassiu m- OptimizeRX Coupon [id number] https://www.[employer]/samplemd/resources/getResource/61/[email or web address].pdf Completed 07/08/2018 Visit Diagnosis Plan: Localized enlarged [...] see a specialist but will talk to dr about it further. ICD-9 : 522.7 ICD-10 : K04.6 07/02/2018 Appointment: Ivon Sky [address] [place] [address] ACUTE ILLNESS 07/02/2018 Appointment: Kristine Brambila WPtel: [address] [place] [address] LAB 06/22/2018 Appointment: Kristine Brambila WPtel: [address] [place] [address] UA 06/17/2018 Visit Diagnosis Plan: Acute sinusitis, unspecified Discussion: dc keflex. start cefdinir daily for 10 days. saline up nares prn congestion. if no improvement after antibiotics or worsening symtpoms, call clinic. ICD-9 : 461.9 ICD-10 : J01.90 06/02/2018 Appointment: Ivon Sky [address] [place] [address] ACUTE ILLNESS 06/02/2018 Appointment: Kristine Brambila WPtel: [address] [place] [address] INJECTION 05/12/2018 Visit Diagnosis Plan: M[facility] (current ) use of 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 Discussion: pt/inr [...] ICD-10 : H70.002 05/11/2018 Appointment: Ivon Sky [address] [place] [address] FOLLOW UP 05/11/2018 Appointment: Kristine Brambila WPtel: [address] [place] [address] LAB 04/30/2018 Visit Diagnosis Plan: Acute sinusitis, unspecified Discussion: 40 mg kenalog given to patient in office. clindamycin prescribed for patient to take as directed. instructed to stop nasal sprays due to worsening pain/irritation and only use saline rinse up nares for now. call with any new or worsening symptoms. ICD-9 : 461.9 ICD-10 : J01.90 04/02/2018 Appointment: Ivon Sky [address] [place] [address] ACUTE ILLNESS 04/02/2018 Patient Education: Patient Medication Summary Completed 04/02/2018 Appointment: Kristine Brambila WPtel: [address] [place] [address] LAB 03/24/2018 Patient Education: Patient Medication Summary Completed 03/24/2018 Visit Diagnosis Plan: Migraine, unspecif ied, not intractable, without status migrainosus Discussion: imitrex increased due to wor sening symptoms and discussed medication administration. instructed patient to rest, increase fluid intake, and to take zyrtec daily for symptom management. call if no improvement or worsening. ICD-9 : 346.90 ICD-10 : G43.909 03/16/2018 Visit Diagnosis Plan: Other allergic rhinitis Discussion: discussed with patient that most likely due to allergy symptoms and to start zyrtec or claritin daily but to allow several days for medication efficacy. if new or worsening symptoms, call clinic. ICD-9 : 477.8 ICD-10 : J30.89 03/16/2018 Appointment: Ivon Sky [address] [place] [address] ACUTE ILLNESS 03/16/2018 Patient Education: Patient Medication Summary Completed 03/16/2018 Appointment: Kristine Brambila WPtel: [address] [place], [place] [id number] LAB 02/24/2018 Patient Education: Patient Medication Summary Completed 02/24/2018 Appointment: Kristine Brambila WPtel: [address] [place] [address] US RESCHEDULED 02/18/2018 Visit Diagnosis Plan: Abdominal distension (gaseous) Discussion: Wanda Restora Rx 1 daily Follow Up: 2 weeks ICD-9 : 787.3 ICD-10 : R14.0 02/16/2018 Visit Diagnosis Plan: Epigastric pain Discussion: Pepcid BID ICD-9 : 789.06 ICD-10 : R10.13 02/16/2018 Visit Diagnosis Plan: Diarrhea, unspecified Discussion: Wanda ICD-9 : 787.91 ICD-10 : R19.7 02/16/2018 Appointment: Kristine Brambila WPtel: [address] [place] [address] ACUTE ILLNESS 02/16/2018 Patient Education: Patient Medication Summary Completed 02/16/2018 Appointment: Kristine Brambila WPtel: [address] [place] [address] US INJECTION 02/05/2018 Patient Education: Patient Medication Summary Completed 02/05/2018 Appointment: Kristine Brambila WPtel: [address] [place], [place] [id number] US INJECTION 01/29/2018 Patient Education: Patient Medication Summary Completed 01/29/2018 Appointment: Kristine Brambila WPtel: [address] [place] [address] US INJECTION 01/28/2018 Patient Education: Patient Medication Summary Completed 01/28/2018 Visit Diagnosis Plan: Acute suppurative otitis media without spontaneous rupture of ear drum, right ear Discussion: amox bid for 10 days. tylenol/ibuprofen for pain or fever. call or rtc with new or worsening symptoms. ICD-9 : 382.00 ICD-10 : H66.001 01/26/2018 Visit Diagnosis Plan: Other allergic rhinitis Discussion: [...] ICD-9 : V15.85 ICD-10 : Z77.21 01/26/2018 Appointment: Ivon Sky [address] [place] [address] ACUTE ILLNESS 01/26/2018 Patient Education: Patient Medication [...] ICD-10 : K13.79 01/01/2018 Appointment: Ivon Sky [address] [place] [address] ACUTE ILLNESS 01/01/2018 Patient Education: Patient Medication [...] ICD-10 : G43.909 12/25/2017 Appointment: Ivon Sky [address] [place] [address] ACUTE ILLNESS 12/25/2017 Patient Education: Patient Medication Summary Completed 12/25/2017 Visit Diagnosis Plan: Acute pharyngitis, unspecified Discussion: rapid strep negative. rocephin injection given in office. clindamycin prescribed as well to start tomorrow for 10 days. increase fluid intake. call or rtc next week if new or worsening symptoms. ICD-9 : 462 ICD-10 : J02.9 12/11/2017 Appointment: Ivon Sky [address] [place] [address] ACUTE ILLNESS 12/11/2017 Patient Education: Patient Medication Summary Completed 12/11/2017 Appointment: Kristine Brambila WPtel: [address] [place] [address] LAB 12/01/2017 Patient Education: Patient Medication Summary Completed 12/01/2017 Visit Diagnosis Plan: Encounter for gyne cological examination (general) (routine) without abnormal findings Discussion: Pap done as has a history of choriocarcinoma Had mammogram last month ICD-9 : V72.31 ICD-10 : Z01.419 11/05/2017 Appointment: Kristine Brambila WPtel: [address] [place] [address] Annual Well Visit 11/05/2017 Patient Education: Patient Medication Summary Completed 11/05/2017 Appointment: Kristine Brambila WPtel: [address] [place], [place] [id number] LAB 10/14/2017 Patient Education: Patient Medication Summary Completed 10/14/2017 Care Plan: X-RAY EXAM OF SHOULDER right LOINC : 18045-3 Pending 10/07/2017 Visit Diagnosis Plan: Pain in right shoulder Discussion: xray ordered of right shoulder to rule out fracture. 40 mg kenalog given as one shot to assist with pain. ICD-9 : 719.41 ICD-10 : M25.511 10/06/2017 Visit Diagnosis Plan: 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 ) use of 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 Discussion: pt/inr completed at today's visit. ICD-9 : V58.61 ICD-10 : Z79.01 10/06/2017 Appointment: Ivon Sky [address] ACUTE ILLNESS 10/06/2017 Patient Education: Patient Medication Summary Completed 10/06/2017 Visit Diagnosis Plan: Pain in unspecified joint Discussion: Check ESR, uric acid, RA ICD-9 : 719.40 ICD-10 : M25.50 10/01/2017 Visit Diagnosis Plan: Raynaud's syndrome without gangr malathi Discussion: Check MAGALIE ICD-9 : 443.0 ICD-10 : I73.00 10/01/2017 Visit Diagnosis Plan: Paresthesia of skin Discussion: Check B12, iron, folate, Vitamin D, TT3, TSH, Free T4 ICD-9 : 782.0 ICD-10 : R20.2 10/01/2017 Appointment: Kristine Brambila WPtel: [address] [place] [address] ACUTE ILLNESS 10/01/2017 Patient Education: Patient Medication [...] ICD-10 : T23.262A 09/10/2017 Appointment: Ivon Sky [address] [place] [address] ACUTE ILLNESS 09/10/2017 Patient Education: Patient Medication Summary Completed 09/10/2017 Appointment: Kristine Brambila WPtel: [address] [place] [address] US INJECTION 09/05/2017 Patient Education: Patient Medication Summary Completed 09/05/2017 Appointment: Kristine Brambila WPtel: [address] [place], [place] [id number] [place] LAB 09/04/2017 Patient Education: Patient Medication Summary Completed 09/04/2017 Appointment: Kristine Brambila WPtel: [address] [place], [place] [id number] [place] LAB 08/07/2017 Patient Education: Patient Medication Summary Completed 08/07/2017 Patient Education: Patient Medication Summary Completed 07/21/2017 Care Plan: CHEST X-RAY 2VW FRONTAL&LATL LOINC : 77779-3 Pending 07/21/2017 Visit Diagnosis Plan: Acute upper [...] ICD-10 : K21.9 07/15/2017 Appointment: Ivon Sky 504 [facility] ACUTE ILLNESS 07/15/2017 Patient Education: Patient Medication Summary Completed 07/15/2017 Appointment: Kristine Brambila WPtel: [address] [place], [place] [id number] US INJECTION 07/04/2017 Patient Education: Patient Medication Summary Completed 07/04/2017 Appointment: Kristine Brambila WPtel: [address] [place], [place] [id number] [place] INJECTION 07/02/2017 Patient Education: Patient Medication [...] : H66.92 07/01/2017 Appointment: Ivon Sky 504 [facility] ACUTE ILLNESS 07/01/2017 Patient Education: Patient Medication Summary Completed 07/01/2017 Care Plan: US EXAM OF HEAD AND NECK Pending 07/01/2017 Appointment: Kristine Brambila WPtel: [address] [facility] [address] LAB 06/19/2017 Patient Education: Patient Medication Summary [...] ICD-10 : J18.9 05/27/2017 Appointment: Ivon Sky [address] ACUTE ILLNESS 05/27/2017 Patient Education: Patient Medication [...] ICD-10 : G47.00 05/20/2017 Appointment: Ivon Sky 504 [facility] ACUTE ILLNESS 05/20/2017 Patient Education: Patient Medication Summary Completed 05/20/2017 Visit Diagnosis Plan: Headache Discu ssion: Discussed likely Migraine Discussed MRI results Discussed changing acetazolamide to HCTZ ICD-9 : 784.0 ICD-10 : R51 04/22/2017 Visit Diagnosis Plan: Diplopia Discu ssion: Updated dilated eye exam ICD-9 : 368.2 ICD-10 : H53.2 04/22/2017 Appointment: Kristine Brambila WPtel: [address] [place] [address] FOLLOW UP 04/22/2017 Patient Education: Patient Medication Summary Completed 04/22/2017 Appointment: Kristine Brambila WPtel: [address] [place] [address] RESCHEDULED 04/07/2017 Visit Plan: Saline nasal flushes pr n. Tylenol/Motrin prn headache. Notify if persists/symptoms worsening. 04/01/2017 Visit Plan: Saline nasal flushes pr n. Tylenol/Motrin prn headache. Notify if persists/symptoms worsening. 04/01/2017 Visit NOS Plan: Plan Notes: Saline nasal flushes prn. Tyle... 04/01/2017 Visit Diagnosis Plan: Acute sinusitis, unspecified Discussion: Kenalog 40mg IM x1 Decadron/Garamycin Nose [place] Mix Has appointment on April 28 with ENT ICD-9 : 461.9 ICD-10 : J01.90 04/01/2017 Appointment: Kristine Brambila WPtel: [address] [place] [address] ACUTE ILLNESS 04/01/2017 Patient Education: Patient Medication Summary Completed 04/01/2017 Referral: Serjio Lugo WPtel: [address] [place] [address] Referral Appointment Requested 03/20/2017 Patient Education: Patient Medication Summary Completed 02/27/2017 Care Plan: CT ABDOMEN W/O DYE abd/pe lvis stone search LOINC : 42431-4 Pending 02/27/2017 Patient Education: Patient Medication Summary Completed 02/12/2017 Care Plan: MRI NECK SPINE W/O DYE LOINC : 68283-4 Pending 02/12/2017 Appointment: Kristine Brambila WPtel: [address] [place] [address] LAB 02/10/2017 Patient Education: Patient Medication Summary [...] : 462 ICD-10 : J02.9 02/05/2017 Visit Diagnosis Plan: Localized enlarged lymph nodes Discussion: Check CT of neck ICD-9 : 785.6 ICD-10 : R59.0 02/05/2017 Visit Diagnosis Plan: Acute stress reaction Discussion: Start Buspar ICD-9 : 308.9 ICD-10 : F43.0 02/05/2017 Visit Diagnosis Plan: Cervicalgia Di scussion: Check CT of neck as well as head due to history of pseudotumor cerebri ICD-9 : 723.1 ICD-10 : M54.2 02/05/2017 Visit NOS Plan: Plan Notes: Support gauri care. Rest, Fluids... 02/05/2017 Appointment: Kristine Brambila WPtel: [address] [place] [address] ACUTE ILLNESS 02/05/2017 Patient Education: Patient Medication Summary Completed 02/05/2017 Care Plan: Referral Order SNOMED-CT : [id number] Pending 02/05/2017 Appointment: Kristine Brambila WPtel: [address] [place] [address] US THROAT SWAB 02/03/2017 Patient Education: Patient Medication Summary Completed 02/03/2017 Appointment: Kristine Brambila WPtel: [address] [place] [address] 01/13 canceled~sl CANCELED 01/28/2017 Visit Plan: Supportive care. Rest, Fluids, Tylenol/Motrin prn fever or bodyaches. Notify if worsening symptoms.New toothebrush in 5 days 01/13/2017 Visit Plan: Supportive care. Rest, Fluids, Tylenol/Motrin prn fever or bodyaches. Notify if worsening symptoms.New toothebrush in 5 days 01/13/2017 Visit Diagnosis Plan: Acute pharyngitis due to other specified organisms Discussion: Strep Negative Valtrex Dory nue nystatin Notify if worsens or persists Hold on methotrexate ICD-9 : 462 ICD-10 : J02.8 01/13/2017 Visit NOS Plan: Plan Notes: Support gauri care. Rest, Fluids... 01/13/2017 Appointment: Kristine Brambila WPtel: [facility]8 [facility] [address] ACUTE ILLNESS 01/13/2017 Patient Education: Patient Medication Summary Completed 01/13/2017 Appointment: Kristine Brambila WPtel: [facility]1 [facility] [address] LAB 12/18/2016 Patient Education: Patient Medication Summary Completed 12/18/2016 Visit Diagnosis Plan: Pain in unspecified joint Discussion: Will retry methotrexate since has worked in past to greatly reduce patient's pain--4 tabs week one then 5 tabs week 2 then 6 tabs weekly and fwup in 6 weeks ICD-9 : 719.49 ICD-10 : M25.50 11/27/2016 Appointment: Kristine Brambila WPtel: [address] [place], [place] [address] 6/ lm~sl / confimed~sl MEDICATION REVIEW 11/27/2016 Patient Education: Patient Medication Summary Completed 11/27/2016 Visit Plan: Supportive care. Rest, Fluids, Tylenol/Motrin prn fever or bodyaches. Notify if worsening symptoms. 08/27/2016 Visit Plan: Supportive care. Rest, Fluids, Tylenol/Motrin prn fever or bodyaches. Notify if worsening symptoms. 08/27/2016 Visit NOS Plan: Plan Notes: Support gauri care. Rest, Fluids... 08/27/2016 Visit Diagnosis Plan: Dysuria Discus steven: Culture urine ICD-9 : 788.1 ICD-10 : R30.0 08/27/2016 Visit Diagnosis Plan: URI, ACUTE Dis cussion: Supportive care ICD-9 : 465.9 ICD-10 : J06.9 08/27/2016 Visit Diagnosis Plan: MCC (current ) use of 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 Discussion: PT/INR drawn ICD-9 : V58.61 ICD-10 : Z79.01 08/27/2016 Appointment: Kristine Brambila WPtel: [phone] [facility] [address] 08/26 confirmed`sl MEDICATION REVIEW 08/27/2016 Patient Education: Patient Medication Summary Completed 08/27/2016 Appointment: Kristine Brambila WPtel: [phone] [place], [place] [phone] BP CHECK 07/08/2016 Patient Education: Patient Medication Summary Completed 07/08/2016 Appointment: Kristine Brambila WPtel: [address] [place], [place] [phone] LAB 05/24/2016 Patient Education: Patient Medication Summary Completed 05/24/2016 Appointment: Kristine Brambila WPtel: [address] [place], [place] [phone] 04/24 will not be able to get [...] with culture results 04/23/2016 Appointment: Nayeli Anderson [address] [facility] ACUTE ILLNESS 04/23/2016 Patient Education: Patient Medication [...] and will add oral abx 04/17/2016 Appointment: Nayeli Anderson [address] ACUTE ILLNESS 04/17/2016 Patient Education: Patient Medication Summary Completed 04/17/2016 Patient Education: [facility] - Saving AutoInj - 18-64 - Dynamic Portal ID Completed 04/17/2016 Appointment: Kristine Brambila WPtel: [address] [place] [address] US LAB 04/11/2016 Patient Education: Patient Medication Summary [...] for migraines 03/12/2016 Appointment: Kristine Brambila WPtel: [address] [place] [address] 03/12 confirmed-sp FOLLOW UP 03/12/2016 Patient Education: Patient Medication Summary Completed 03/12/2016 Appointment: Kristine Brambila WPtel: [address] [place] [address] LAB 02/12/2016 Patient Education: Patient Medication Summary Completed 02/12/2016 Appointment: Kristine Brambila WPtel: [address] [place] [address] LAB 02/01/2016 Patient Education: Patient Medication Summary Completed 02/01/2016 Appointment: Kristine Brambila WPtel: [address] [place] [address] LAB 01/22/2016 Patient Education: Patient Medication Summary [...] no improvement 11/10/2015 Appointment: Julee Slater WPtel: [address] [place] [address] ACUTE ILLNESS 11/10/2015 Patient Education: Patient Medication [...] care otherwise 11/09/2015 Appointment: Nayeli Anderson [address] ACUTE ILLNESS 11/09/2015 Patient Education: Patient Medication Summary Completed 11/09/2015 Referral: Maximiliano Neves WPtel: [address] Spoke with Sally at Dr. Ta's offic e. Patient is scheduled for 10/16/15 at 3:15pm. Demographics and notes have been faxed. Patient has been informed. -sp Initi ated 10/16/2015 Visit Plan: Proceed with biopsy/rem oval of right posterior neck node Mammogram ordered--US of right axilla if needed 10/10/2015 Appointment: Kristine Brambila WPtel: [phone] 10/08 confirmed ~sl FOLLOW UP 10/10/2015 Patient Education: Patient Medication Summary Completed 10/10/2015 Patient Education: [facility] - Saving AutoInj - 18-64 - Dynamic Portal ID Completed 10/10/2015 Care Plan: MAMMOGRAM SCREENING LOINC : 64504-8 Pending 10/10/2015 Visit Plan: Labs ordered - peripher al smear, tsh, b12 - see order requisition Soft tissue US of neck ordered as well to further evaluate mass to right reported to be there over a year Antibiotic as well for URI that is not resolving - rapid strep was negative Diflucan given - Dr Brambila aware and torres Discussed INR with Dr Brambila - coumadin change as above Refill written for hydros - needs to keep appt with Dr Brambila for next week for prison management of pain 10/02/2015 Visit Plan: Labs ordered - peripher al smear, tsh, b12 - see order requisition Soft tissue US of neck ordered as well to further evaluate mass to right reported to be there over a year Antibiotic as well for URI that is not resolving - rapid strep was negative Diflucan given - Dr Brambila aware and torres Discussed INR with Dr Brambila - coumadin change as above Refill written for hydros - needs to keep appt with Dr Brambila for next week for prison management of pain 10/02/2015 Appointment: Nayeli Anderson [address] [place] [address] ACUTE ILLNESS 10/02/2015 Patient Education: Patient Medication Summary Completed 10/02/2015 Patient Education: [facility] - Saving AutoInj - 18-64 - Dynamic Portal ID Completed 10/02/2015 Care Plan: US EXAM OF HEAD AND NECK Pending 10/02/2015 Appointment: Kristine Brambila WPtel: [address] [place], [place] [id number] [place] LAB 09/29/2015 Patient Education: Patient Medication Summary Completed 09/29/2015 Appointment: Kristine Brambila WPtel: [address] [place], [place] [address] [place] LAB 07/27/2015 Patient Education: Patient Medication Summary Completed 07/27/2015 Visit Plan: Trial of Savella Did no t tolerate lyrica Did not tolerate cymbalta 07/10/2015 Appointment: Kristine Brambila WPtel: [address] [place], [place] [phone] 07/10 appt confirmed cn FOLLOW UP 07/10/2015 Patient Education: Patient Medication Summary Completed 07/10/2015 [facility]ment: [facility] [phone] [facility] [facility] 06/30/2015 Patient Education: Patient Medication Summary Completed 06/30/2015 Visit Plan: Recommended Vitamin E o il topically bid to area of scar. Currently taking Amoxicillin for sinusitis. Recommend Flonase nasal spray 06/27/2015 Visit Plan: Recommended Vitamin E o il topically bid to area of scar. Currently taking Amoxicillin for sinusitis. Recommend Flonase nasal spray 06/27/2015 Appointment: [facility]el[phone] [facility] 06/27/2015 Patient Education: Patient Medication Summary Completed 06/27/2015 Appointment: Meli Hatch WPtel[phone] 06/22/15 appt confirmed and she will dreacharisma garcia new insurance card ACUTE ILLNESS 06/26/2015 Appointment: Krist[facility]ila [facility]el[facility] [phone] [facility] [facility] 06/21/2015 Patient Education: Patient Medication Summary Completed 06/21/2015 Visit Plan: Add cymbalta at 30mg da loli Repeat PT/INR in 2weeks Recheck 1mo Awaiting ID to reschedule 06/08/2015 Visit Plan: Add cymbalta at 30mg [place] Repeat PT/INR in 2weeks Recheck 1mo Awaiting ID to reschedule 06/08/2015 Appointment: [facility]ila [facility]el[facility] [phone] [facility] 06/07 lm ~sl 06/08 confirmed ~sl FOLLOW UP 06/08/2015 Patient Education: Patient Medication Summary Completed 06/08/2015 Patient Education: [facility] - Saving AutoInj - Cymbalta - 18-64 - Dynamic Portal ID Completed 06/08/2015 Patient Education: [facility] - Saving AutoInj - 18-64 - Dynamic Portal ID Completed 06/08/2015 Appointment: Kristine Brambila [facility]Ptel[facility] [phone] [facility] [facility] 05/31/2015 Patient Education: Patient Medication Summary Completed 05/31/2015 Visit Plan: Check PT/INR today Stop ped Lyrica due to fluid retention Has appt. scheduled at [facility] with hematology and infectious disease 06/08 Follow-up appt. in 2 weeks following appt. at . 05/24/2015 Visit Plan: Check PT/INR today Stop ped Lyrica due to fluid retention Has appt. scheduled at [facility] with hematology and infectious disease 06/08 Follow-up appt. in 2 weeks following appt. at . 05/24/2015 Appointment: Meli Hatch WPtel: [phone] [facility] NEW [facility]IENT 05/24/2015 Patient Education: Patient Medication Summary Completed 05/24/2015 Patient Education: [facility] - Saving AutoInj - 18-64 - Dynamic Portal ID Completed 05/24/2015 Referral: Annamarie Melo WPtel: [facility] [address] [facility] Referral Initiated Instructions Comment . Rapid strep [...] to fluid retention Has appt. scheduled at [facility] with hematology and infectious disease 06/08 Follow-up appt. in 2 weeks following appt. at . . Check PT/INR today Stopped Lyrica due to fluid retention Has appt. scheduled at [facility] with hematology and infectious disease 06/08 Follow-up [...] with Dr Brambila for next week for prison management of pain . 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 Recommended Vitami n [...]
--- OUTSIDE RECORDS SUMMARY | 2020-01-28 13:30 | XMS REPORT | CCD ---
Author Author Heydi Hatch APRN Organization [facility] Address [address] [place] [address] Phone Care Team Providers Care Lacquer Machine Feeder Name Role Phone Kristine Brambila D.O., PP Unavailable CCM Unavailable Summary Purpose Interface Exchange Insurance Providers Payer name Policy type / Coverage type Covered democrat ID Effective Begin Date Effective End Date Blue Cross Blue Shield Blue Cross/Bl ue Shield [id number] 2018 Un known Family History Family History data not found Social History Social History Element Codes Description Effective Dates Tobacco history SNOMED CT: 08925406 Current every day smoker 06/08/2015 Allergies, Adverse [...] ICD-9: V58.83 ICD-10: Z51.81 Active 01/21/2016 Unknown snf (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 ICD-9: V58.61 ICD-10: [...] 02/10/2017 Unknown Pelvic and perineal pain ICD-9: [id number] ICD-10: R10.2 Active 02/10/2017 Unknown Cervicalgia ICD-9: [...] monitoring ICD-9: V58.83 ICD-10: Z51.81 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 ICD-9: V58.61 ICD-10: [...] 02/10/2017 Active Pelvic and perineal pain ICD-9: [id number] ICD-10: R10.2 02/10/2017 Active Cervicalgia ICD-9: 723.1 [...] mupirocin 2 % topica l cream RxNorm: 908922 1 Application TOP TID 03/08/2019 03/14/2019 Active Vistaril 25 mg capsule RxNorm: 457053 Capsule(s) 1 Capsule(s) PO TID as needed for anxiety 03/02/2019 05/30/2019 Active cyclobenzaprine 10 m g tablet RxNorm: 673469 Tablet(s) 1 TABLET(S) PO QD NEEDED 03/02/2019 08/28/2019 Ac tive hydrocodone 10 mg-ac etaminophen 325 mg tablet RxNorm: 972383 1 Tablet(s) PO Q4-6H as needed for pain 03/02/2019 No Stop Date Active Vitamin D2 50,000 un it capsule RxNorm: 3486254 1 CAPSULE(S) PO QW 02/26/2019 08/24/2019 Active warfarin 5 mg tablet RxNorm: 734354 1 Tablet(s) PO QD 02/17/2019 04/17/2019 Active acetazolamide 125 mg tablet RxNorm: 948082 1 TABLET(S) PO BID 02/15/2019 04/15/2019 Active cholestyramine (with sugar) 4 gram oral powder RxNorm: 021108 1 UNIT DOSE PO QD 02/15/2019 04/15/2019 Ac tive penicillin V potassi um 500 mg tablet RxNorm: 944303 1 Tablet(s) PO BID 02/10/2019 02/09/2019 In active penicillin V potassi um 500 mg tablet RxNorm: 914008 1 Tablet(s) PO BID 02/10/2019 02/16/2019 In active Diflucan 150 mg tablet RxNorm: 880437 TABLET(S) 1 TABLET(S) PO QW NEEDED 02/08/2019 No Stop Date Active Anusol-HC 25 mg rect al suppository RxNorm: 1975323 1 Suppository RTL QD as needed 02/08/2019 03/09/2019 In active hydrocodone 10 mg-ac etaminophen 325 mg tablet RxNorm: 900907 1 Tablet(s) PO Q4-6H as needed for pain 02/01/2019 No Stop Date Active hydrocodone 10 mg-ac etaminophen 325 mg tablet RxNorm: 390033 1 Tablet(s) PO Q4-6H as needed for pain 02/01/2019 03/01/2019 Inactive Diflucan 150 mg tablet RxNorm: 778653 Tablet(s) TABLET(S) 1 TABLET(S) PO QW NEEDED 01/28/2019 No Stop Date Active Vistaril 25 mg capsule RxNorm: 131935 1 Capsule(s) PO TID 01/27/2019 07/25/2019 Active ProAir HFA 90 mcg/ac tuation aerosol inhaler RxNorm: 658575 2 Puff(s) INH Q4H as needed 01/20/2019 No Stop Date Active Tessalon Perles 100 mg capsule RxNorm: 747924 1 Capsule(s) PO TID a s needed for cough 01/20/2019 No Stop Date Active doxycycline hyclate 100 mg capsule RxNorm: 8673316 1 Capsule(s) PO BID 01/20/2019 01/19/2019 In active doxycycline hyclate 100 mg capsule RxNorm: 3447078 1 Capsule(s) PO BID 01/20/2019 01/26/2019 In active Coumadin 5 mg tablet RxNorm: 087704 1 Tablet(s) PO QD (on Mon, , Fri, , Fri and Sun) 01/05/2019 06/09/2019 Active Generic For:COUMADIN 5MG TAB 05/25/2018 3:20:45 PM N O T I C E Last quantity doesn't match original quantity amoxicillin 500 mg c apsule RxNorm: 719269 1 Capsule(s) PO BID 01/05/2019 01/14/2019 Inactive amoxicillin 500 mg c apsule RxNorm: 678448 1 Capsule(s) PO BID 01/05/2019 01/04/2019 Inactive hydrocodone 10 mg-ac etaminophen 325 mg tablet RxNorm: 861892 1 Tablet(s) PO Q4-6H as needed for pain 01/01/2019 01/31/2019 Inactive Coumadin 5 mg tablet RxNorm: 272268 Tablet(s) TAKE 1 TABLET(S) BY MOUTH FRI, FRI, FRI, Friday12/23/2018 01/04/2019 Inactive Generic For:COUMADIN 5MG TA B 05/25/2018 3:20:45 PM N O T I C E Last quantity doesn't match original quantity Diflucan 150 mg tablet RxNorm: 592795 Tablet(s) TABLET(S) 1 TABLET(S) PO QW NEEDED 12/23/2018 01/27/2019 Inactive cyclobenzaprine 10 m g tablet RxNorm: 304536 1 TABLET(S) PO QD NEEDED 12/23/2018 03/01/2019 In active Vitamin D2 50,000 un it capsule RxNorm: 2553469 1 Capsule(s) PO QW 12/04/2018 02/25/2019 Inactive Medrol (Juan Francisco) 4 mg ta blets in a dose pack RxNorm: 088392 Tablet(s) PO as direc liane 12/04/2018 12/03/2018 In active Vitamin D2 50,000 un it capsule RxNorm: 2397920 1 Capsule(s) PO QW 12/04/2018 12/03/2018 Inactive Medrol (Juan Francisco) 4 mg ta blets in a dose pack RxNorm: 409624 Tablet(s) PO as direc liane 12/04/2018 01/19/2019 In active Zithromax Z-Juan Francisco 250 mg tablet RxNorm: 956050 Tablet(s) PO take as directed 12/02/2018 02/16/2019 In active Coumadin 5 mg tablet RxNorm: 525022 Tablet(s) TAKE 1 TABLET(S) BY MOUTH FRI, FRI, FRI, Friday11/30/2018 12/22/2018 Inactive Generic For:COUMADIN 5MG TA B 05/25/2018 3:20:45 PM N O T I C E Last quantity doesn't match original quantity Vistaril 25 mg capsule RxNorm: 565910 Capsule(s) 1 Capsule(s) PO TID as needed for anxiety 11/30/2018 02/27/2019 Inactive Diflucan 150 mg tablet RxNorm: 906379 Tablet(s) TABLET(S) 1 TABLET(S) PO QW NEEDED 11/26/2018 12/22/2018 Inactive cholestyramine (with sugar) 4 gram oral powder RxNorm: 363100 1 UNIT DOSE PO QD 11/24/2018 02/14/2019 In active acetazolamide 125 mg tablet RxNorm: 117279 1 Tablet(s) PO BID 11/24/2018 02/14/2019 Inactive cyclobenzaprine 10 m g tablet RxNorm: 155013 1 Tablet(s) PO QD as needed 11/17/2018 12/22/2018 In active hydrocodone 10 mg-ac etaminophen 325 mg tablet RxNorm: 511433 1 Tablet(s) PO Q4-6H as needed for pain 11/05/2018 01/31/2019 Inactive acetazolamide 125 mg tablet RxNorm: 827745 1 TABLET(S) PO BID 10/26/2018 11/23/2018 Inactive cholestyramine (with sugar) 4 gram oral powder RxNorm: 183253 1 UNIT DOSE PO QD 10/26/2018 11/23/2018 In active Coumadin 5 mg tablet RxNorm: 857850 TAKE 1 TABLET(S) BY MOUTH FRI, FRI, FRI, Friday10/26/2018 11/29/2018 Inactive Generic For:COUMADIN 5MG TAB 05/25/2018 3:20:45 PM N O T I C E Last quantity doesn't match original quantity Diflucan 150 mg tablet RxNorm: 437677 TABLET(S) 1 TABLET(S) PO QW NEEDED 10/26/2018 11/25/2018 In active hydrocodone 10 mg-ac etaminophen 325 mg tablet RxNorm: 702832 1 Tablet(s) PO Q4-6H as needed for pain 10/08/2018 11/04/2018 Inactive acetazolamide 125 mg tablet RxNorm: 990857 1 Tablet(s) PO BID 09/24/2018 10/23/2018 Inactive Coumadin 5 mg tablet RxNorm: 103378 TAKE 1 TABLET(S) BY MOUTH MON, FRI, FRI, Friday09/24/2018 10/25/2018 Inactive Generic For:COUMADIN 5MG TAB 05/25/2018 3:20:45 PM N O T I C E Last quantity doesn't match original quantity Diflucan 150 mg tablet RxNorm: 799579 Tablet(s) 1 Tablet(s) PO QW as needed 09/24/2018 10/25/2018 In active cyclobenzaprine 10 m g tablet RxNorm: 199641 1 Tablet(s) PO QD as needed 09/24/2018 11/16/2018 In active Vistaril 25 mg capsule RxNorm: 224560 1 Capsule(s) PO TID as needed for anxiet y 09/24/2018 11/29/2018 In active cholestyramine (with sugar) 4 gram oral powder RxNorm: 621416 1 Unit Dose PO QD 09/24/2018 10/23/2018 In active Pyridium 200 mg tablet RxNorm: 4065545 1 Tablet(s) PO TID 09/10/2018 09/19/2018 Inactive Pyridium 200 mg tablet RxNorm: 3796334 1 Tablet(s) PO TID 09/10/2018 09/09/2018 Inactive hydrocodone 10 mg-ac etaminophen 325 mg tablet RxNorm: 466589 1 Tablet(s) PO Q4-6H as needed for pain 09/08/2018 10/07/2018 Inactive cefdinir 300 mg capsule RxNorm: 583656 1 Capsule(s) PO BID 09/08/2018 09/21/2018 Inactive hydrocodone 10 mg-ac etaminophen 325 mg tablet RxNorm: 633006 1 Tablet(s) PO Q4-6H as needed for pain 08/13/2018 09/07/2018 Inactive cyclobenzaprine 10 m g tablet RxNorm: 475780 1 Tablet(s) PO QD as needed 07/23/2018 09/23/2018 In active Diflucan 150 mg tablet RxNorm: 421393 Tablet(s) 1 Tablet(s) PO QW as needed 07/23/2018 09/23/2018 In active Ciprodex 0.3 %-0.1 % ear drops,suspension RxNorm: 835568 4 Drop(s) left otic ( ear) BID 07/23/2018 07/29/2018 Inactive hydrocodone 10 mg-ac etaminophen 325 mg tablet RxNorm: 647318 1 Tablet(s) PO Q4-6H as needed for pain 07/16/2018 08/12/2018 Inactive penicillin V potassi um 500 mg tablet RxNorm: 024316 1 Tablet(s) PO Q6H 07/08/2018 07/17/2018 In active cyclobenzaprine 10 m g tablet RxNorm: 284201 1 Tablet(s) PO QD as needed 06/22/2018 07/22/2018 In active Vistaril 25 mg capsule RxNorm: 910352 1 Capsule(s) PO TID as needed for anxiet y 06/22/2018 09/23/2018 In active cholestyramine (with sugar) 4 gram oral powder RxNorm: 177067 1 Unit Dose PO QD 06/22/2018 09/23/2018 In active hydrocodone 10 mg-ac etaminophen 325 mg tablet RxNorm: 101673 1 Tablet(s) PO Q4-6H as needed for pain 06/17/2018 07/15/2018 Inactive cefdinir 300 mg capsule RxNorm: 598201 1 Capsule(s) PO BID 06/02/2018 06/11/2018 Inactive Diflucan 150 mg tablet RxNorm: 625468 Tablet(s) 1 Tablet(s) PO QW as needed 06/02/2018 07/22/2018 In active Coumadin 5 mg tablet RxNorm: 462464 TAKE 1 TABLET(S) BY MOUTH FRI, FRI, FRI, Friday05/25/2018 07/15/2018 Inactive Generic For:COUMADIN 5MG TAB 05/25/2018 3:20:45 PM N O T I C E Last quantity doesn't match original quantity Imitrex 50 mg tablet RxNorm: 663145 Tablet(s) 1 Tablet(s) PO at headache. re peat in 2 hours if no relief. no more than 2 tabs per day 05/19/2018 No Stop Date Active cholestyramine (with sugar) 4 gram oral powder RxNorm: 023956 1 Unit Dose PO QD 05/19/2018 11/14/2018 In active Vistaril 25 mg capsule RxNorm: 466616 1 Capsule(s) PO TID 05/19/2018 11/14/2018 Inactive Coumadin 5 mg tablet RxNorm: 752575 Tablet(s) TAKE 1 TABLET(S) BY MOUTH FRI, FRI, FRI, Friday05/19/2018 05/24/2018 Inactive Generic For:COUMADIN 5MG TA B N O T I C E Last quantity doesn't match original quantity acetazolamide 125 mg tablet RxNorm: 217288 1 Tablet(s) PO BID 05/19/2018 09/23/2018 Inactive cyclobenzaprine 10 m g tablet RxNorm: 421962 1 Tablet(s) PO QD as needed 05/19/2018 11/17/2018 In active Coumadin 7.5 mg tablet RxNorm: 577000 1 Tablet(s) PO QD , , 05/19/2018 01/04/2019 In active ketorolac 10 mg tablet RxNorm: 794773 1 Tablet(s) PO QHS as needed 05/11/2018 No Stop Date Active promethazine 12.5 mg tablet RxNorm: 428639 1 Tablet(s) PO Q6H as needed 04/23/2018 04/22/2018 In active acetazolamide 125 mg tablet RxNorm: 159333 1 Tablet(s) PO BID 04/23/2018 05/18/2018 Inactive Coumadin 5 mg tablet RxNorm: 824967 TAKE 1 TABLET(S) BY MOUTH FRI, FRI, FRI, Friday04/23/2018 05/18/2018 Inactive Generic For:COUMADIN 5MG TAB N O T I C E Last quantity doesn't match original quantity Imitrex 50 mg tablet RxNorm: 155477 1 Tablet(s) PO at headache. repeat in 2 hours if no relief. no more than 2 tabs per day 04/23/2018 05/18/2018 Inactive cyclobenzaprine 10 m g tablet RxNorm: 025818 1 Tablet(s) PO QD as needed 04/23/2018 05/18/2018 In active clindamycin HCl 300 mg capsule RxNorm: 543650 1 Capsule(s) PO TID 04/02/2018 04/11/2018 Inactive hydrocodone 10 mg-ac etaminophen 325 mg tablet RxNorm: 843337 1 Tablet(s) PO Q4-6H as needed for pain 03/24/2018 06/16/2018 Inactive promethazine 12.5 mg tablet RxNorm: 813624 1 Tablet(s) PO Q6H 03/23/2018 04/23/2018 Inactive Imitrex 50 mg tablet RxNorm: 698370 1 Tablet(s) PO at headache. repeat in 2 hours if no relief. no more than 2 tabs per day 03/23/2018 04/22/2018 Inactive Diflucan 150 mg tablet RxNorm: 300884 1 Tablet(s) PO QW as needed 03/23/2018 06/01/2018 Inactive Coumadin 5 mg tablet RxNorm: 784415 Tablet(s) 1 Tablet(s) PO Mon, Wed, Fri, Sun 03/23/2018 04/22/2018 In active Imitrex 100 mg tablet RxNorm: 870629 Tablet(s) PO take one tablet at sign of headache and repeat in 2 hours if ineffective 03/16/2018 04/01/2018 Inactive ondansetron HCl 4 mg tablet RxNorm: 867068 1 Tablet(s) PO Q4H as needed for nausea 02/24/2018 04/01/2018 In active hydrocodone 10 mg-ac etaminophen 325 mg tablet RxNorm: 692125 1 Tablet(s) PO Q4-6H as needed for pain 02/24/2018 03/23/2018 Inactive Coumadin 5 mg tablet RxNorm: 497037 Tablet(s) 1 Tablet(s) PO Mon, Wed, Fri, Sun 02/20/2018 03/22/2018 In active promethazine 12.5 mg tablet RxNorm: 327728 1 Tablet(s) PO Q6H 02/20/2018 03/22/2018 Inactive Pepcid 40 mg tablet RxNorm: 693113 1 Tablet(s) PO BID for stomach 02/16/2018 03/17/2018 In active Flagyl 500 mg tablet RxNorm: 847174 1 Tablet(s) PO TID 02/16/2018 02/25/2018 Inactive Imitrex 50 mg tablet RxNorm: 580123 1 Tablet(s) PO at headache. repeat in 2 hours if no relief. no more than 2 tabs per day 01/27/2018 03/15/2018 Inactive Coumadin 5 mg tablet RxNorm: 957179 1 Tablet(s) PO Mon, Wed, Fri, Sun 01/27/2018 02/20/2018 In active amoxicillin 875 mg t ablet RxNorm: 579824 1 Tablet(s) PO BID 01/26/2018 02/04/2018 Inactive Imitrex 50 mg tablet RxNorm: 216334 1 Tablet(s) PO at headache. repeat in 2 hours if no relief. no more than 2 tabs per day 01/26/2018 03/22/2018 Inactive cyclobenzaprine 10 m g tablet RxNorm: 165886 1 Tablet(s) PO QD as needed 01/23/2018 03/23/2018 In active promethazine 12.5 mg tablet RxNorm: 234612 1 Tablet(s) PO Q6H 01/23/2018 02/19/2018 Inactive Diflucan 150 mg tablet RxNorm: 046151 1 Tablet(s) PO QW as needed 01/22/2018 03/22/2018 Inactive acetazolamide 125 mg tablet RxNorm: 950174 1 Tablet(s) PO BID 01/22/2018 04/21/2018 Inactive Imitrex 50 mg tablet RxNorm: 460950 1 Tablet(s) PO at headache. repeat in 2 hours if no relief. no more than 2 tabs per day 01/02/2018 01/25/2018 Inactive Ciprodex 0.3 %-0.1 % ear drops,suspension RxNorm: 060657 4 Drop(s) otic (ear) BID 01/01/2018 01/07/2018 In active Coumadin 7.5 mg tablet RxNorm: 358195 1 Tablet(s) PO QD , , 12/29/2017 05/18/2018 In active Coumadin 5 mg tablet RxNorm: 805809 1 Tablet(s) PO Mon, Wed, Fri, Sun 12/29/2017 01/26/2018 In active cyclobenzaprine 10 m g tablet RxNorm: 070290 1 Tablet(s) PO QD as needed 12/29/2017 01/22/2018 In active clindamycin HCl 300 mg capsule RxNorm: 904776 1 Capsule(s) PO TID 12/26/2017 12/25/2017 Inactive Imitrex 50 mg tablet RxNorm: 617686 1 Tablet(s) PO at headache. repeat in 2 hours if no relief. no more than 2 tabs per day 12/26/2017 01/01/2018 Inactive clindamycin HCl 300 mg capsule RxNorm: 512535 1 Capsule(s) PO TID 12/26/2017 01/04/2018 Inactive Zithromax Z-Juan Francisco 250 mg tablet RxNorm: 791045 Tablet(s) PO take as directed 12/25/2017 12/25/2017 In active promethazine 12.5 mg tablet RxNorm: 926505 1 Tablet(s) PO Q6H 12/25/2017 01/22/2018 Inactive clindamycin HCl 300 mg capsule RxNorm: 718677 1 Capsule(s) PO TID 12/11/2017 12/17/2017 Inactive Vistaril 25 mg capsule RxNorm: 348055 1 Capsule(s) PO TID as needed for anxiet y 12/04/2017 05/18/2018 In active cholestyramine (with sugar) 4 gram oral powder RxNorm: 817095 1 Unit Dose PO QD 12/04/2017 05/18/2018 In active Coumadin 7.5 mg tablet RxNorm: 803036 1 Tablet(s) PO QD 12/04/2017 12/28/2017 Inactive Coumadin 5 mg tablet RxNorm: 550757 1 Tablet(s) PO Friday through Friday12/04/2017 12/28/2017 In active hydrocodone 10 mg-ac etaminophen 325 mg tablet RxNorm: 234153 1 Tablet(s) PO Q4-6H as needed for pain 12/01/2017 02/23/2018 Inactive hydrocodone 10 mg-ac etaminophen 325 mg tablet RxNorm: 203409 1 Tablet(s) PO Q4-6H as needed for pain 11/03/2017 11/30/2017 Inactive cyclobenzaprine 10 m g tablet RxNorm: 464430 1 Tablet(s) PO QD as needed 10/30/2017 12/28/2017 In active cholestyramine (with sugar) 4 gram oral powder RxNorm: 602195 1 Unit Dose PO QD 10/30/2017 11/28/2017 In active amoxicillin 875 mg t ablet RxNorm: 152897 1 Tablet(s) PO BID 10/08/2017 10/07/2017 Inactive amoxicillin 875 mg t ablet RxNorm: 533921 1 Tablet(s) PO BID 10/08/2017 10/17/2017 Inactive penicillin V potassi um 500 mg tablet RxNorm: 782424 1 Tablet(s) PO BID 10/06/2017 10/07/2017 In active hydrocodone 10 mg-ac etaminophen 325 mg tablet RxNorm: 946534 1 Tablet(s) PO Q4-6H as needed for pain 10/06/2017 11/02/2017 Inactive hydrocodone 10 mg-ac etaminophen 325 mg tablet RxNorm: 693086 1 Tablet(s) PO Q4-6H as needed for pain 10/06/2017 12/31/2018 Inactive Vigamox 0.5 % eye drops RxNorm: 114593 1 Drop(s) ophthalmic (eye) TID ONLY ADMI NISTER IF INFECTION 10/03/2017 10/02/2017 Inactive Vigamox 0.5 % eye drops RxNorm: 750002 1 Drop(s) ophthalmic (eye) TID ONLY ADMI NISTER IF INFECTION 10/03/2017 10/09/2017 Inactive cholestyramine (with sugar) 4 gram oral powder RxNorm: 252119 1 Unit Dose PO QD 09/23/2017 10/30/2017 In active acetazolamide 125 mg tablet RxNorm: 817859 1 Tablet(s) PO BID 09/23/2017 12/21/2017 Inactive Coumadin 5 mg tablet RxNorm: 607986 1 Tablet(s) PO QD FRIDAY THROUGH Friday09/17/2017 11/04/2017 In active mupirocin 2 % topica l ointment RxNorm: 158346 1 Application TOP TID 09/10/2017 11/04/2017 Inactive hydrocodone 10 mg-ac etaminophen 325 mg tablet RxNorm: 033157 1 Tablet(s) PO Q4-6H as needed for pain 09/08/2017 10/05/2017 Inactive Questran 4 gram powd er for susp in a packet RxNorm: 453790 MIX ONE PACKET IN 6 O UNCES OF APPLE SAUCE OR OTHER SOFT FOOD AND EAT ONCE DAILY 09/02/2017 11/04/2017 Inactive Diflucan 150 mg tablet RxNorm: 903831 1 Tablet(s) PO QW as needed 08/14/2017 01/21/2018 Inactive hydrocodone 10 mg-ac etaminophen 325 mg tablet RxNorm: 704594 1 Tablet(s) PO Q4-6H as needed for pain 08/11/2017 09/07/2017 Inactive Tamiflu 75 mg capsule RxNorm: 842465 1 Capsule(s) PO QD 08/11/2017 08/10/2017 Inactive Tamiflu 75 mg capsule RxNorm: 387898 1 Capsule(s) PO QD 08/11/2017 08/20/2017 Inactive Coumadin 5 mg tablet RxNorm: 396551 1 Tablet(s) PO QD FRIDAY THROUGH Friday07/22/2017 09/16/2017 In active Coumadin 5 mg tablet RxNorm: 830233 TAKE ONE TABLET BY MOUTH ONCE DAILY THROUGH Friday07/16/2017 07/21/2017 Inactive cyclobenzaprine 10 m g tablet RxNorm: 698973 1 Tablet(s) PO QD as needed 07/15/2017 10/30/2017 In active hydrocodone 10 mg-ac etaminophen 325 mg tablet RxNorm: 864207 1 Tablet(s) PO Q4-6H as needed for pain 07/14/2017 08/10/2017 Inactive warfarin 5 mg tablet RxNorm: 021503 1 Tablet(s) PO Fri Sat Sun-patibindu nt is due for PT/INR 06/18/2017 02/16/2019 Inactive Questran Light 4 gra m powder for susp in a packet RxNorm: 5121417 1 PO QD 06/18/2017 11/04/2017 In active cyclobenzaprine 10 m g tablet RxNorm: 631503 1 Tablet(s) PO QD as needed 06/18/2017 07/14/2017 In active hydrocodone 10 mg-ac etaminophen 325 mg tablet RxNorm: 305913 1 Tablet(s) PO Q4-6H as needed for pain 06/18/2017 07/13/2017 Inactive Lunesta 1 mg tablet RxNorm: 811085 1 Tablet(s) PO QHS as needed 05/27/2017 06/25/2017 Inactive Zithromax Z-Juan Francisco 250 mg tablet RxNorm: 843383 1 Tablet(s) PO Take a s directed 05/27/2017 11/04/2017 In active ProAir HFA 90 mcg/ac tuation aerosol inhaler RxNorm: 435325 2 Puff(s) INH Q4H 05/27/2017 01/19/2019 In active ProAir HFA 90 mcg/ac tuation aerosol inhaler RxNorm: 767091 2 Puff(s) INH Q4H 05/27/2017 05/26/2017 In active promethazine 6.25 mg -codeine 10 mg/5 mL syrup RxNorm: 422497 5 Milliliter(s) PO Q4 H as needed 05/27/2017 11/04/2017 Inactive Diflucan 150 mg tablet RxNorm: 130078 1 Tablet(s) PO QW as needed 05/26/2017 05/25/2017 Inactive cyclobenzaprine 10 m g tablet RxNorm: 620899 1 Tablet(s) PO QD as needed 05/20/2017 06/18/2017 In active Lunesta 2 mg tablet RxNorm: 457639 1 Tablet(s) PO QHS 05/20/2017 05/27/2017 Inactive Zithromax Z-Juan Francisco 250 mg tablet RxNorm: 870683 Tablet(s) PO As Direc liane 05/12/2017 05/19/2017 In active cyclobenzaprine 5 mg tablet RxNorm: 503241 1 Tablet(s) PO QPM 03/28/2017 05/19/2017 Inactive Vistaril 25 mg capsule RxNorm: 256615 1 Capsule(s) PO TID as needed for anxiet y 03/28/2017 09/23/2017 In active Questran 4 gram powd er for susp in a packet RxNorm: 851613 1 Unit(s) PO QD 03/06/2017 06/18/2017 In active Cipro 500 mg tablet RxNorm: 953424 1 Tablet(s) PO BID 02/27/2017 02/26/2017 Inactive Pyridium 200 mg tablet RxNorm: 4988258 1 Tablet(s) PO TID for bladder spasms 02/27/2017 03/31/2017 In active Cipro 500 mg tablet RxNorm: 341670 1 Tablet(s) PO BID 02/27/2017 03/05/2017 Inactive Levsin 0.125 mg tablet RxNorm: 9764003 1 Tablet(s) PO QID as needed for spasm 02/25/2017 11/04/2017 In active tamsulosin 0.4 mg ca psule RxNorm: 110332 1 Capsule(s) PO QPM 02/25/2017 03/26/2017 Inactive tamsulosin 0.4 mg ca psule RxNorm: 438876 1 Capsule(s) PO QPM 02/25/2017 02/24/2017 Inactive Pyridium 100 mg tablet RxNorm: 0731120 1 Tablet(s) PO TID as needed 02/21/2017 03/31/2017 In active acetazolamide 125 mg tablet RxNorm: 972891 1 Tablet(s) PO BID 02/07/2017 09/23/2017 Inactive Questran 4 gram powd er for susp in a packet RxNorm: 981987 1 Unit(s) PO QD 02/06/2017 03/06/2017 In active cyclobenzaprine 5 mg tablet RxNorm: 742115 1 Tablet(s) PO QPM 02/05/2017 03/27/2017 Inactive BuSpar 5 mg tablet RxNorm: 038754 1 Tablet(s) PO BID 02/03/2017 03/31/2017 Inactive Diflucan 150 mg tablet RxNorm: 567060 1 Tablet(s) PO QW as needed 01/15/2017 05/26/2017 Inactive Valtrex 1 gram tablet RxNorm: 939782 1 Tablet(s) PO TID 01/13/2017 01/19/2017 Inactive Vistaril 25 mg capsule RxNorm: 627094 1 Capsule(s) PO TID as needed for anxiet y 01/13/2017 03/27/2017 In active hydrocodone 10 mg-ac etaminophen 325 mg tablet RxNorm: 636671 1 Tablet(s) PO Q4-6H as needed for pain 01/13/2017 06/17/2017 Inactive Questran 4 gram powd er for susp in a packet RxNorm: 647256 1 Unit(s) PO QD 01/13/2017 09/23/2017 In active acetazolamide 125 mg tablet RxNorm: 372052 1 Tablet(s) PO BID 01/13/2017 02/06/2017 Inactive methotrexate (PF) 20 mg/0.4 mL subcutaneous auto-injector RxNorm: 0960017 Milliliter(s) SQ QW 12/26/2016 01/05/2017 Inactive Compazine 10 mg tablet RxNorm: 002891 1 Tablet(s) PO TID as needed for nausea 12/18/2016 11/04/2017 In active hydrocodone 10 mg-ac etaminophen 325 mg tablet RxNorm: 218271 1 Tablet(s) PO Q4-6H as needed for pain 12/17/2016 01/12/2017 Inactive Questran 4 gram powd er for susp in a packet RxNorm: 113419 1 Unit(s) PO QD 12/17/2016 01/13/2017 In active cyclobenzaprine 5 mg tablet RxNorm: 145493 1 Tablet(s) PO QPM 12/17/2016 02/05/2017 Inactive Questran Light 4 gra m powder for susp in a packet RxNorm: 7647525 1 PO QD 11/29/2016 06/17/2017 In active Zofran ODT 4 mg disi ntegrating tablet RxNorm: 081635 1 Tablet(s) PO Q4H as needed for nausea 11/29/2016 12/17/2016 Inactive methotrexate sodium 2.5 mg tablet RxNorm: 349928 4 Tablet(s) PO week 1 then 5 tablets po week 2 then 6 tablets weekly 11/27/2016 12/25/2016 Inactive warfarin 7.5 mg tablet RxNorm: 944161 1 Tablet(s) PO three times weekly 11/14/2016 03/31/2017 In active warfarin 7.5 mg tablet RxNorm: 655061 1 Tablet(s) PO three times weekly 11/13/2016 11/13/2016 In active Diflucan 150 mg tablet RxNorm: 961207 1 Tablet(s) PO QW as needed 11/05/2016 01/14/2017 Inactive Vistaril 25 mg capsule RxNorm: 027182 1 Capsule(s) PO TID as needed for anxiet y 11/04/2016 11/03/2016 In active Coumadin 5 mg tablet RxNorm: 851670 1 Tablet(s) PO Friday through Friday11/04/2016 06/18/2017 In active acetazolamide 125 mg tablet RxNorm: 443651 1 Tablet(s) PO BID 11/04/2016 01/13/2017 Inactive sumatriptan 100 mg t ablet RxNorm: 194121 1 Tablet(s) PO at hea dache onset. May repeat in 2 hours if headache remains 11/04/2016 11/04/2017 Inactive Vistaril 25 mg capsule RxNorm: 536330 1 Capsule(s) PO TID as needed for anxiet y 11/04/2016 01/12/2017 In active hydrocodone 10 mg-ac etaminophen 325 mg tablet RxNorm: 616215 1 Tablet(s) PO Q4-6H as needed for pain 11/04/2016 12/16/2016 Inactive Coumadin 5 mg tablet RxNorm: 774218 TAKE ONE TABLET BY MOUTH ON SUN., MON., WED., AND FRI., AND TAKE ONE AND ONE-HALF TABLETS TUE., TH., AND 10/16/2016 10/25/2016 In active Coumadin 5 mg tablet RxNorm: 275476 1 Tablet(s) PO Friday through Friday10/15/2016 11/03/2016 In active hydrocodone 10 mg-ac etaminophen 325 mg tablet RxNorm: 567067 1 Tablet(s) PO Q4-6H as needed for pain 10/14/2016 11/03/2016 Inactive hydrocodone 10 mg-ac etaminophen 325 mg tablet RxNorm: 730225 1 Tablet(s) PO Q4-6H as needed for pain 09/20/2016 10/13/2016 Inactive warfarin 7.5 mg tablet RxNorm: 054068 1 Tablet(s) PO three times weekly 09/20/2016 11/12/2016 In active Diflucan 150 mg tablet RxNorm: 409452 1 Tablet(s) PO QW as needed 08/20/2016 11/04/2016 Inactive acetazolamide 125 mg tablet RxNorm: 102101 1 Tablet(s) PO BID 08/20/2016 11/04/2016 Inactive Diflucan 150 mg tablet RxNorm: 237297 1 Tablet(s) PO QW as needed 08/20/2016 08/19/2016 Inactive Vistaril 25 mg capsule RxNorm: 988070 Capsule(s) TAKE ONE CAPSULE BY MOUTH THR EE TIMES DAILY NEEDED FOR ANXIETY 08/19/2016 11/04/2016 Inactive hydrocodone 10 mg-ac etaminophen 325 mg tablet RxNorm: 151916 1 Tablet(s) PO Q4-6H as needed for pain 08/05/2016 09/19/2016 Inactive Diflucan 150 mg tablet RxNorm: 558149 1 Tablet(s) PO QW as needed 07/19/2016 08/19/2016 Inactive tizanidine 4 mg tablet RxNorm: 148832 1-2 Tablet(s) PO QHS as needed for muscl e spasm and sleep 06/03/2016 06/10/2016 Inactive Questran Light 4 gra m powder for susp in a packet RxNorm: 8898997 1 PO QD 05/14/2016 08/11/2016 In active Macrobid 100 mg capsule RxNorm: 746545 1 Capsule(s) PO BID 04/23/2016 05/02/2016 Inactive mupirocin 2 % topica l ointment RxNorm: 126743 Apply topically to af fected area 2-3 times daily 04/17/2016 07/07/2016 Inactive Vistaril 25 mg capsule RxNorm: 060825 TAKE ONE CAPSULE BY MOUTH THREE TIMES DA LOLI NEEDED FOR ANXIETY 04/17/2016 11/04/2016 Inactive Diflucan 150 mg tablet RxNorm: 799637 1 Tablet(s) PO QW as needed 04/16/2016 07/18/2016 Inactive cyclobenzaprine 5 mg tablet RxNorm: 677530 TAKE ONE TABLET BY [facility] ONCE DAILY IN THE EVENING 03/25/2016 12/17/2016 Inactive Pyridium 100 mg tablet RxNorm: 2058840 1 Tablet(s) PO TID as needed 03/20/2016 03/19/2016 In active Diflucan 150 mg tablet RxNorm: 910098 1 Tablet(s) PO QW as needed 03/20/2016 04/15/2016 Inactive Pyridium 100 mg tablet RxNorm: 1817997 1 Tablet(s) PO TID as needed 03/20/2016 08/26/2016 In active Diflucan 150 mg tablet RxNorm: 721896 1 Tablet(s) PO QW as needed 03/19/2016 03/19/2016 Inactive Coumadin 7.5 mg tablet RxNorm: 546118 1 Tablet(s) PO QD 03/14/2016 05/12/2016 Inactive acetazolamide 125 mg tablet RxNorm: 822425 1 Tablet(s) PO BID 02/28/2016 08/20/2016 Inactive Coumadin 5 mg tablet RxNorm: 184736 1 TABLET(S) PO QD THREE TIMES A WEEK AND 1 1/2 TAB (7.5MG) FOUR TIMES A WEEK 02/28/2016 03/13/2016 Inactive Questran Light 4 gra m powder for susp in a packet RxNorm: 2128111 1 PO QD 02/13/2016 05/12/2016 In active Diflucan 150 mg tablet RxNorm: 096497 1 Tablet(s) PO QW as needed 01/19/2016 03/11/2016 Inactive Diflucan 150 mg tablet RxNorm: 210709 1 Tablet(s) PO QW as needed 01/18/2016 01/18/2016 Inactive promethazine 25 mg t ablet RxNorm: 623878 1 Tablet(s) PO Q4H as needed for nausea 12/05/2015 12/17/2016 In active Imitrex 100 mg tablet RxNorm: 191072 1 Tablet(s) PO at headache onset and may repeat in 2 hours if needed 12/05/2015 03/31/2017 Inactive Diflucan 150 mg tablet RxNorm: 164092 1 Tablet(s) PO QW as needed 11/24/2015 01/17/2016 Inactive Diflucan 150 mg tablet RxNorm: 372052 1 Tablet(s) PO QW as needed 11/21/2015 11/23/2015 Inactive Coumadin 5 mg tablet RxNorm: 535680 1 Tablet(s) PO QD three times a week and 1 1/2 tab (7.5mg) four times a week 11/13/2015 02/01/2016 Inactive Questran Light 4 gra m powder for susp in a packet RxNorm: 739337 1 PO QD 11/13/2015 02/10/2016 In active acetazolamide 125 mg tablet RxNorm: 316499 1 Tablet(s) PO BID 11/13/2015 02/10/2016 Inactive amoxicillin 875 mg t ablet RxNorm: 026066 1 Tablet(s) PO BID 11/09/2015 11/18/2015 Inactive Coumadin 7.5 mg tablet RxNorm: 286439 1 Tablet(s) PO on and 10/26/2015 10/25/2015 In active Coumadin 7.5 mg tablet RxNorm: 379514 1 Tablet(s) PO on and 10/26/2015 11/12/2015 In active Coumadin 5 mg tablet RxNorm: 705592 1 Tablet(s) PO Friday, Friday, Friday and Friday. 1.5 tablets Friday, and Friday. 10/26/2015 10/25/2015 Inactive Coumadin 5 mg tablet RxNorm: 746925 1 Tablet(s) PO Friday, Friday, Friday , and Friday. Take 1 1/2 on Friday, and Friday10/26/2015 11/12/2015 Inactive Coumadin 7.5 mg tablet RxNorm: 564077 1 Tablet(s) PO on and 10/26/2015 10/26/2015 In active Coumadin 5 mg tablet RxNorm: 645930 1 Tablet(s) PO Friday, Friday, Friday and Friday. 1.5 tablets Friday, and Friday. 10/26/2015 02/14/2016 Inactive Vistaril 25 mg capsule RxNorm: 448784 1 Capsule(s) PO TID as needed for anxiet y 10/10/2015 04/06/2016 In active cyclobenzaprine 5 mg tablet RxNorm: 662445 1 Tablet(s) PO QPM 10/10/2015 03/24/2016 Inactive Vistaril 25 mg capsule RxNorm: 907917 1 Capsule(s) PO TID as needed for anxiet y 10/10/2015 10/09/2015 In active cyclobenzaprine 5 mg tablet RxNorm: 642874 1 Tablet(s) PO QPM 10/10/2015 10/09/2015 Inactive Coumadin 5 mg tablet RxNorm: 587513 1 Tablet(s) PO Friday, Friday, Friday and Friday. 1.5 tablets Friday, and Friday. 10/02/2015 10/01/2015 Inactive Coumadin 5 mg tablet RxNorm: 187051 1 Tablet(s) PO Friday, Friday, Friday and Friday. 1.5 tablets Friday, and Friday. 10/02/2015 10/25/2015 Inactive amoxicillin 500 mg t ablet RxNorm: 556926 1 Tablet(s) PO TID 10/02/2015 10/11/2015 Inactive hydrocodone 10 mg-ac etaminophen 325 mg tablet RxNorm: 169511 1 Tablet(s) PO Q4-6H as needed for pain 10/02/2015 08/04/2016 Inactive Diflucan 150 mg tablet RxNorm: 296746 1 Tablet(s) PO QW as needed 10/02/2015 10/01/2015 Inactive amoxicillin 500 mg t ablet RxNorm: 790381 1 Tablet(s) PO TID 10/02/2015 10/01/2015 Inactive Diflucan 150 mg tablet RxNorm: 570563 1 Tablet(s) PO QW as needed 10/02/2015 10/09/2015 Inactive Coumadin 5 mg tablet RxNorm: 147646 1 Tablet(s) PO Mon.,Fri.,Fri., Sat. and Sun. 09/14/2015 10/01/2015 Inactive acetazolamide 125 mg tablet RxNorm: 676611 1 Tablet(s) PO BID 09/14/2015 11/12/2015 Inactive hydrocodone 10 mg-ac etaminophen 325 mg tablet RxNorm: 789812 1 Tablet(s) PO Q4-6H as needed for pain 09/01/2015 10/01/2015 Inactive Vistaril 25 mg capsule RxNorm: 104041 1 Capsule(s) PO TID as needed for anxiet y 08/24/2015 09/22/2015 In active baclofen 10 mg tablet RxNorm: 474369 1/2 Tablet(s) PO QAM and 1 tablet at bed time 07/27/2015 10/09/2015 Inactive Vistaril 25 mg capsule RxNorm: 790530 1 Capsule(s) PO BID 07/24/2015 08/22/2015 Inactive Savella 12.5 mg (5)- 25 mg(8)-50mg(42) tablets in a dose pack RxNorm: 881643 Tablet(s) PO as directed 07/10/2015 07/26/2015 Inactive hydrocodone 10 mg-ac etaminophen 325 mg tablet RxNorm: 965980 1 Tablet(s) PO Q6H as needed for pain 06/29/2015 08/10/2015 Inactive Coumadin 7.5 mg tablet RxNorm: 135760 1 Tablet(s) PO on and 06/21/2015 10/25/2015 In active Vistaril 25 mg capsule RxNorm: 813947 1 Capsule(s) PO BID 06/20/2015 07/24/2015 Inactive Cymbalta 30 mg capsu le,delayed release RxNorm: 873583 1 Capsule(s) PO QD 06/08/2015 07/09/2015 In active Coumadin 5 mg tablet RxNorm: 337407 1 Tablet(s) PO Mon.,Wed.,Fri., Sat. and Sun. 06/08/2015 07/07/2015 Inactive Coumadin 5 mg tablet RxNorm: 597685 1 Tablet(s) PO Mon.,Wed.,Fri., Sat. and Sun. 05/24/2015 06/07/2015 Inactive Coumadin 7.5 mg tablet RxNorm: 238069 1 Tablet(s) PO on and 05/24/2015 06/20/2015 In active Coumadin 7.5 mg tablet RxNorm: 764653 1 Tablet(s) PO on Friday No Start Date Active Vitamin B12 1000mcg Tablet RxNorm: 1/2 Tablet(s) PO QD No Start Date Active Bystolic 10 mg tablet RxNorm: 503247 3 Tablet(s) PO QAM No Start Date Active Vitamin D3 5,000 uni t tablet RxNorm: 789699 1 Tablet(s) PO QD No Start Date Active Bystolic 5 mg tablet RxNorm: 842112 1 Tablet(s) PO NOON No Start Date Active sumatriptan 100 mg t ablet RxNorm: 339368 1 Tablet(s) PO at hea dache onset. May repeat in 2 hours if headache remains No Start Date 11/03/2016 Inactive warfarin 7.5 mg tablet RxNorm: 455221 1 Tablet(s) PO three times weekly No Start Date 09/19/2016 Inactive ondansetron HCl 4 mg tablet RxNorm: 323273 1 Tablet(s) PO Q4H as needed for nausea No Start Date 02/23/2018 Inactive Imitrex 100 mg tablet RxNorm: 238647 1 Tablet(s) PO at headache onset and may repeat in 2 hours if needed No Start Date 12/04/2015 Inactive Vitamin B12 1000mcg Tablet RxNorm: 1/2 Tablet(s) PO on , hur, Sat and Sun and 1 tab all other days No Start Date 04/01/2018 Inactive warfarin 5 mg tablet RxNorm: 175027 1 Tablet(s) PO QD No Start Date 02/16/2019 Inactive baclofen 10 mg tablet RxNorm: 028583 1/2 Tablet(s) PO QAM and 1 tablet at bed time No Start Date 07/26/2015 Inactive tizanidine 4 mg tablet RxNorm: 856188 1-2 Tablet(s) PO QHS as needed for muscl e spasm and sleep No Start Date 06/02/2016 Inactive Flexeril 5 mg tablet RxNorm: 892984 1 Tablet(s) PO QD No Start Date 10/09/2015 Inactive methotrexate (PF) 20 mg/0.4 mL subcutaneous auto-injector RxNorm: 8288116 SQ QW No Start Date 12/25/2016 Inactive Bystolic 5 mg tablet RxNorm: 291934 1 Tablet(s) PO as needed No Start Date 03/15/2018 Inactive Questran Light 4 gra m powder for susp in a packet RxNorm: 065069 1 PO QD No Start Date 11/12/2015 Inactive Bystolic 10 mg tablet RxNorm: 955405 1 Tablet(s) PO QAM No Start Date 11/04/2017 Inactive warfarin 5 mg tablet RxNorm: 116645 1 Tablet(s) PO Fri Sun No Start Date 06/17/2017 Inactive hydrocodone 10 mg-ac etaminophen 325 mg tablet RxNorm: 602967 1 Tablet(s) PO 4-6hou rs as needed for pain No Start Date 08/31/2015 Inactive cyclobenzaprine 5 mg tablet RxNorm: 975570 1 Tablet(s) PO QPM No Start Date 12/16/2016 Inactive Lovenox 100 mg/mL carmona bcutaneous syringe RxNorm: 653821 1 Milliliter(s) SQ QD No Start Date 06/07/2015 Inactive Levsin 0.125 mg tablet RxNorm: 0286365 1 Tablet(s) PO QID as needed for spasm No Start Date 02/24/2017 Inactive Savella 12.5 mg (5)- 25 mg(8)-50mg(42) tablets in a dose pack RxNorm: 820990 Tablet(s) PO as directed No Start Date 07/09/2015 Inactive Coumadin 10 mg tablet RxNorm: 678832 1 Tablet(s) PO QD No Start Date 2015 Inactive tramadol 50 mg tablet RxNorm: 438033 1 Tablet(s) PO TID as needed for pain No Start Date 03/31/2017 Inactive BuSpar 5 mg tablet RxNorm: 944444 1 Tablet(s) PO BID No Start Date 02/02/2017 Inactive Vistaril 25 mg capsule RxNorm: 727276 1 Capsule(s) PO BID No Start Date 06/19/2015 Inactive Tessalon Perles 100 mg capsule RxNorm: 354722 1 Capsule(s) PO TID a s needed for cough No Start Date 01/19/2019 Inactive promethazine 12.5 mg tablet RxNorm: 674419 1 Tablet(s) PO Q6H as needed No Start Date 04/22/2018 Inactive Coumadin 7.5 mg tablet RxNorm: 585831 1 Tablet(s) PO Fri and Friday No Start Date 03/13/2016 Inactive Imitrex 50 mg tablet RxNorm: 740717 1 Tablet(s) PO at headache. repeat in 2 hours if no relief. no more than 2 tabs per day No Start Date 12/25/2017 Inactive acetazolamide 125 mg tablet RxNorm: 441425 1 Tablet(s) PO BID No Start Date 09/13/2015 Inactive methotrexate (PF) 12 .5 mg/0.4 mL subcutaneous auto-injector RxNorm: 5194046 1 Milliliter(s) SQ QW No Start Date 03/31/2017 Inactive Bystolic 10 mg tablet RxNorm: 051132 1 Tablet(s) PO QAM No Start Date 03/25/2018 Inactive Zithromax Z-Juan Francisco 250 mg tablet RxNorm: 297951 Tablet(s) PO As Direc liane No Start Date 05/11/2017 Inactive Bystolic 20 mg tablet RxNorm: 875106 1 Tablet(s) PO QD No Start Date 03/15/2018 Inactive Questran 4 gram powd er for susp in a packet RxNorm: 126779 1 Unit(s) PO QD No Start Date 12/16/2016 Inactive Vitamin D3 1,000 uni t tablet RxNorm: 276752 1 Tablet(s) PO QD No Start Date 04/01/2018 Inactive Coumadin 5 mg tablet RxNorm: 298312 1 Tablet(s) PO Friday through Friday No Start Date 03/13/2016 Inactive warfarin 5 mg tablet RxNorm: 752696 1 Tablet(s) PO four days per week No Start Date 04/01/2018 Inactive ProAir HFA 90 mcg/ac tuation aerosol inhaler RxNorm: 009403 2 Puff(s) INH Q4H as needed No Start Date 01/19/2019 Inactive Bystolic 5 mg tablet RxNorm: 112113 1 Tablet(s) PO QHS No Start Date 03/25/2018 Inactive Compazine 10 mg tablet RxNorm: 625397 1 Tablet(s) PO TID as needed for nausea No Start Date 12/17/2016 Inactive Pyridium 200 mg tablet RxNorm: 3074626 1 Tablet(s) PO TID for bladder spasms No Start Date 02/26/2017 Inactive hydrocodone 10 mg-ac etaminophen 325 mg tablet RxNorm: 209924 1 Tablet(s) PO as nee ded No Start Date 06/28/2015 Inactive warfarin 7.5 mg tablet RxNorm: 365430 1 Tablet(s) PO on Friday and No Start Date 04/01/2018 Inactive promethazine 25 mg t ablet RxNorm: 328428 1 Tablet(s) PO Q4H as needed for nausea No Start Date 12/04/2015 Inactive Lovenox 30 mg/0.3 mL subcutaneous syringe RxNorm: 216151 1 Milliliter(s) SQ QD No Start Date 06/07/2015 Inactive Vitamin B12 1000mcg Tablet RxNorm: 1/2 Tablet(s) PO QD No Start Date 12/02/2017 Inactive Vitamin B12 1000mcg Tablet RxNorm: 1 Tablet(s) PO M// QD No Start Date 12/02/2017 Inactive Medication Administered No Medication Administered data Immunizations Vaccine Codes Date Status Influenza CVX: 141 03/24 completed Assessments Condition Codes 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 ICD-10: Z79.01 ICD-9: [...] and perineal pain ICD-10: R10 .2 ICD-9: [id number] 02/10/2017 Hematuria, unspecified ICD-10: R31.9 ICD-9: 599.70 [...] Code Item Item Code Result Date PT 1464474 PT 23.5 Seconds 03/08/2019 PT 2989689 INR 2.0 03/08/2019 ANTI STREPTOLYSIN O TITER(ASO) 40551 ASO Titr 110 IU/mL 9 MYCOPLASMA ANTIBODY, IFA 00156A9 Mycoplas Ab IgG 1:64 01/20/2019 MYCOPLASMA ANTIBODY, IFA 17721S0 Mycoplas Ab IgM <1:10 01/20/2019 MYCOPLASMA ANTIBODY, IFA [id number] Mycoplasma Intp See Below 01/20/2019 LEGIONELLA 0411535 Legio adore Ab <1:128 01/20/2019 HEPATIC FUNCTION PANEL A 93033 Total Protein 6.3 g/dL 01/19/2019 HEPATIC FUNCTION PANEL A 88630 AST 16 U/L 01/19/2019 HEPATIC FUNCTION PANEL A 37536 ALK PHOS 52 U/L 01/19/2019 HEPATIC FUNCTION PANEL A 63637 Bili Total 0.2 mg/dL 01/19/2019 HEPATIC FUNCTION PANEL A 46542 ALT 20 U/L 01/19/2019 HEPATIC FUNCTION PANEL A 68105 ALBUMIN 4.3 g/dL 01/19/2019 HEPATIC FUNCTION PANEL A 11613 Bili Direct 0.1 mg/dL 01/19/2019 PT 6372576 PT 27.5 Seconds 01/19/2019 PT 5655153 INR 2.6 01/19/2019 COMPLETE BLOOD COUNT 4109088 WBC 11.1 10e9/L 01/19/2019 COMPLETE BLOOD COUNT 4901120 RBC 4.14 10e12/L 9 COMPLETE BLOOD COUNT 5519515 HEMOGLOBIN 13.9 g/dL 01/19/2019 COMPLETE BLOOD COUNT 4560539 HEMATOCRIT 40.7 % 01/19/2019 COMPLETE BLOOD COUNT 5836218 MCV 98.3 fL 01/19/2019 COMPLETE BLOOD COUNT 7740406 MCH 33.6 pg 01/19/2019 COMPLETE BLOOD COUNT 1699900 MCHC 34.2 g/dL 01/19/2019 COMPLETE BLOOD COUNT 2676844 PLATELET COUNT 334 10e9/L 01/19/2019 COMPLETE BLOOD COUNT 5654451 Mean Plt Volume 8.9 fL 01/19/2019 COMPLETE BLOOD COUNT 7379211 Neut Auto 60.2 % 01/19/2019 COMPLETE BLOOD COUNT 0789430 Lymph Auto 32.5 % 01/19/2019 COMPLETE BLOOD COUNT 6745474 Dimmit Auto 6.1 % 01/19/2019 COMPLETE BLOOD COUNT 0284620 RDW 12.5 % 01/19/2019 COMPLETE BLOOD COUNT 5464956 Eos Auto 1.0 % 01/19/2019 COMPLETE BLOOD COUNT 3704992 Baso Auto 0.2 % 01/19/2019 COMPLETE BLOOD COUNT 5090553 Neutrophil Abs 6.68 10e9/L 01/19/2019 COMPLETE BLOOD COUNT 9646554 Lymphocyte Abs 3.61 10e9/L 01/19/2019 COMPLETE BLOOD COUNT 4398382 Monocyte Abs 0.68 10e9/L 01/19/2019 COMPLETE BLOOD COUNT 9551216 Eosinophil Abs 0.11 10e9/L 01/19/2019 COMPLETE BLOOD COUNT 9286259 RDW-SD 43.4 fL 01/19/2019 COMPLETE BLOOD COUNT 4590121 Basophil Abs 0.02 10e9/L 01/19/2019 COMPLETE BLOOD COUNT 5967159 WBC 7.4 10e9/L 12/18/2018 COMPLETE BLOOD COUNT 5378681 RBC 4.32 10e12/L 9 COMPLETE BLOOD COUNT 2080147 HEMOGLOBIN 14.2 g/dL 12/18/2018 COMPLETE BLOOD COUNT 6858515 HEMATOCRIT 42.0 % 12/18/2018 COMPLETE BLOOD COUNT 9019679 MCV 97.2 fL 12/18/2018 COMPLETE BLOOD COUNT 5660750 MCH 32.9 pg 12/18/2018 COMPLETE BLOOD COUNT 6025867 MCHC 33.8 g/dL 12/18/2018 COMPLETE BLOOD COUNT 8132283 PLATELET COUNT 273 10e9/L 12/18/2018 COMPLETE BLOOD COUNT 9662797 Mean Plt Volume 9.4 fL 12/18/2018 COMPLETE BLOOD COUNT 4819391 Neut Auto 57.7 % 12/18/2018 COMPLETE BLOOD COUNT 5973925 Lymph Auto 34.8 % 12/18/2018 COMPLETE BLOOD COUNT 3208115 Dimmit Auto 6.4 % 12/18/2018 COMPLETE BLOOD COUNT 6971900 RDW 12.6 % 12/18/2018 COMPLETE BLOOD COUNT 8774196 Eos Auto 0.8 % 12/18/2018 COMPLETE BLOOD COUNT 2957443 Baso Auto 0.3 % 12/18/2018 COMPLETE BLOOD COUNT 3344638 Neutrophil Abs 4.27 10e9/L 12/18/2018 COMPLETE BLOOD COUNT 4467204 Lymphocyte Abs 2.58 10e9/L 12/18/2018 COMPLETE BLOOD COUNT 9190903 Monocyte Abs 0.47 10e9/L 12/18/2018 COMPLETE BLOOD COUNT 4221220 Eosinophil Abs 0.06 10e9/L 12/18/2018 COMPLETE BLOOD COUNT 2191599 RDW-SD 43.8 fL 12/18/2018 COMPLETE BLOOD COUNT 6179318 Basophil Abs 0.02 10e9/L 12/18/2018 GFR CALC 9643505 GFR Non Afr Amr >60 mL/min 12/18/2018 GFR CALC 6858759 GFR Afr Amr >60 mL/min 12/18/2018 COMPREHENSIVE METABOLIC 10045 AST 33 U/L 12/18/2018 COMPREHENSIVE METABOLIC 40017 ALT 60 U/L 12/18/2018 COMPREHENSIVE METABOLIC 47458 BUN 9 mg/dL 12/18/2018 COMPREHENSIVE METABOLIC 37982 ALBUMIN 4.3 g/dL 12/18/2018 COMPREHENSIVE METABOLIC 37928 CHLORIDE 104 mmol/L 12/18/2018 COMPREHENSIVE METABOLIC 40045 Bili Total 0.3 mg/dL 12/18/2018 COMPREHENSIVE METABOLIC 35871 ALK PHOS 63 U/L 12/18/2018 COMPREHENSIVE METABOLIC 95319 SODIUM 139 mmol/L 12/18/2018 COMPREHENSIVE METABOLIC 06158 CREATININE 0.55 mg/dL 12/18/2018 COMPREHENSIVE METABOLIC 80887 CALCIUM 9.0 mg/dL 12/18/2018 COMPREHENSIVE METABOLIC 33508 POTASSIUM 3.9 mmol/L 12/18/2018 COMPREHENSIVE METABOLIC 75017 Total Protein 6.4 g/dL 12/18/2018 COMPREHENSIVE METABOLIC 55878 Glucose 83 mg/dL 12/18/2018 COMPREHENSIVE METABOLIC 51252 Bicarbonate 27 mmol/L 12/18/2018 COMPREHENSIVE METABOLIC 21367 AGAP 8 mmol/L 12/18/2018 ERYTHROCYTE SEDIMENTATION RATE 22715 Sed Rate 17 mm/hr 12/04/2018 MEAN GLUC 9811355 Calc M zach Gluc 108 mg/dL 12/03/2018 VITAMIN B 12 85368 VITAM IN B12 329 pg/mL 12/03/2018 COMPREHENSIVE METABOLIC 83872 AST 18 U/L 12/03/2018 COMPREHENSIVE METABOLIC 86309 ALT 21 U/L 12/03/2018 COMPREHENSIVE METABOLIC 69038 BUN 11 mg/dL 12/03/2018 COMPREHENSIVE METABOLIC 01845 ALBUMIN 4.5 g/dL 12/03/2018 COMPREHENSIVE METABOLIC 13051 CHLORIDE 106 mmol/L 12/03/2018 COMPREHENSIVE METABOLIC 13541 Bili Total 0.4 mg/dL 12/03/2018 COMPREHENSIVE METABOLIC 77121 ALK PHOS 49 U/L 12/03/2018 COMPREHENSIVE METABOLIC 95466 SODIUM 138 mmol/L 12/03/2018 COMPREHENSIVE METABOLIC 60997 CREATININE 0.61 mg/dL 12/03/2018 COMPREHENSIVE METABOLIC 37284 CALCIUM 9.2 mg/dL 12/03/2018 COMPREHENSIVE METABOLIC 74493 POTASSIUM 3.7 mmol/L 12/03/2018 COMPREHENSIVE METABOLIC 96647 Total Protein 6.8 g/dL 12/03/2018 COMPREHENSIVE METABOLIC 92473 Glucose 94 mg/dL 12/03/2018 COMPREHENSIVE METABOLIC 87306 Bicarbonate 25 mmol/L 12/03/2018 COMPREHENSIVE METABOLIC 13136 AGAP 7 mmol/L 12/03/2018 FREE T4 69400 T4 Free 0.96 ng/dL 12/03/2018 ASSAY TRIIODOTHYRONINE (T3) 97357 T3 Total 1.02 ng/mL 12/03/2018 GFR CALC 2862366 GFR Non Afr Amr >60 mL/min 12/03/2018 GFR CALC 5429099 GFR Afr Amr >60 mL/min 12/03/2018 GLYCOSYLATED HEMOGLOBIN TEST 99210 Hgb A1c 45574-0 5.4 % 12/03/2018 VITAMIN D TOTAL (25 HYDROXY) 84039 Vitamin D 25 OH 11.1 ng/mL 12/03/2018 IRON 40291 Iron 106 ug/dL 12/03/2018 THYROID STIMULATING HORMONE 82582 TSH 0.978 uIU/mL 9 COMPLETE BLOOD COUNT 8934928 WBC 9.4 10e9/L 12/03/2018 COMPLETE BLOOD COUNT 1757967 RBC 4.41 10e12/L 9 COMPLETE BLOOD COUNT 6274174 HEMOGLOBIN 14.5 g/dL 12/03/2018 COMPLETE BLOOD COUNT 9707915 HEMATOCRIT 43.0 % 12/03/2018 COMPLETE BLOOD COUNT 3110280 MCV 97.5 fL 12/03/2018 COMPLETE BLOOD COUNT 8276446 MCH 32.9 pg 12/03/2018 COMPLETE BLOOD COUNT 8240907 MCHC 33.7 g/dL 12/03/2018 COMPLETE BLOOD COUNT 8835868 PLATELET COUNT 336 10e9/L 12/03/2018 COMPLETE BLOOD COUNT 1994784 Mean Plt Volume 9.1 fL 12/03/2018 COMPLETE BLOOD COUNT 8814761 Neut Auto 56.4 % 12/03/2018 COMPLETE BLOOD COUNT 1463716 Lymph Auto 35.6 % 12/03/2018 COMPLETE BLOOD COUNT 4383103 Dimmit Auto 6.8 % 12/03/2018 COMPLETE BLOOD COUNT 9265319 RDW 12.6 % 12/03/2018 COMPLETE BLOOD COUNT 4000773 Eos Auto 1.0 % 12/03/2018 COMPLETE BLOOD COUNT 5399353 Baso Auto 0.2 % 12/03/2018 COMPLETE BLOOD COUNT 1935665 Neutrophil Abs 5.30 10e9/L 12/03/2018 COMPLETE BLOOD COUNT 6939362 Lymphocyte Abs 3.35 10e9/L 12/03/2018 COMPLETE BLOOD COUNT 0999923 Monocyte Abs 0.64 10e9/L 12/03/2018 COMPLETE BLOOD COUNT 8952585 Eosinophil Abs 0.09 10e9/L 12/03/2018 COMPLETE BLOOD COUNT 7600260 RDW-SD 44.3 fL 12/03/2018 COMPLETE BLOOD COUNT 8135150 Basophil Abs 0.02 10e9/L 12/03/2018 FERRITIN 65008 FERRITIN 87.8 ng/mL 12/03/2018 PT 9857913 PT 23.1 Seconds 11/30/2018 PT 2505650 INR 2.0 11/30/2018 ANTI STREPTOLYSIN O TITER(ASO) 04514 ASO Titr 117 IU/mL 9 COMPLETE BLOOD COUNT 8955945 WBC 10.7 10e9/L 11/11/2018 COMPLETE BLOOD COUNT 6897793 RBC 4.42 10e12/L 9 COMPLETE BLOOD COUNT 6564433 HEMOGLOBIN 14.5 g/dL 11/11/2018 COMPLETE BLOOD COUNT 1229802 HEMATOCRIT 43.1 % 11/11/2018 COMPLETE BLOOD COUNT 1095502 MCV 97.5 fL 11/11/2018 COMPLETE BLOOD COUNT 1853972 MCH 32.8 pg 11/11/2018 COMPLETE BLOOD COUNT 8064248 MCHC 33.6 g/dL 11/11/2018 COMPLETE BLOOD COUNT 3031272 PLATELET COUNT 324 10e9/L 11/11/2018 COMPLETE BLOOD COUNT 0890885 Mean Plt Volume 9.2 fL 11/11/2018 COMPLETE BLOOD COUNT 0127636 Neut Auto 62.3 % 11/11/2018 COMPLETE BLOOD COUNT 1785083 Lymph Auto 30.8 % 11/11/2018 COMPLETE BLOOD COUNT 7459878 Dimmit Auto 6.1 % 11/11/2018 COMPLETE BLOOD COUNT 2146668 RDW 12.7 % 11/11/2018 COMPLETE BLOOD COUNT 5881433 Eos Auto 0.7 % 11/11/2018 COMPLETE BLOOD COUNT 7021825 Baso Auto 0.1 % 11/11/2018 COMPLETE BLOOD COUNT 1549788 Neutrophil Abs 6.67 10e9/L 11/11/2018 COMPLETE BLOOD COUNT 4592135 Lymphocyte Abs 3.30 10e9/L 11/11/2018 COMPLETE BLOOD COUNT 5884895 Monocyte Abs 0.65 10e9/L 11/11/2018 COMPLETE BLOOD COUNT 4394495 Eosinophil Abs 0.07 10e9/L 11/11/2018 COMPLETE BLOOD COUNT 7244852 RDW-SD 44.3 fL 11/11/2018 COMPLETE BLOOD COUNT 6235598 Basophil Abs 0.01 10e9/L 11/11/2018 PT 2387960 PT 23.4 Seconds 10/27/2018 PT 0440053 INR 2.0 10/27/2018 COMPLETE BLOOD COUNT 1383442 WBC 8.1 10e9/L 09/25/2018 COMPLETE BLOOD COUNT 9838192 RBC 4.37 10e12/L 9 COMPLETE BLOOD COUNT 6166984 HEMOGLOBIN 14.5 g/dL 09/25/2018 COMPLETE BLOOD COUNT 8629618 HEMATOCRIT 42.1 % 09/25/2018 COMPLETE BLOOD COUNT 0200940 MCV 96.3 fL 09/25/2018 COMPLETE BLOOD COUNT 5706020 MCH 33.2 pg 09/25/2018 COMPLETE BLOOD COUNT 4694547 MCHC 34.4 g/dL 09/25/2018 COMPLETE BLOOD COUNT 7593664 PLATELET COUNT 313 10e9/L 09/25/2018 COMPLETE BLOOD COUNT 5871154 Mean Plt Volume 9.2 fL 09/25/2018 COMPLETE BLOOD COUNT 7602526 Neut Auto 57.4 % 09/25/2018 COMPLETE BLOOD COUNT 9572230 Lymph Auto 35.0 % 09/25/2018 COMPLETE BLOOD COUNT 1647408 Dimmit Auto 6.3 % 09/25/2018 COMPLETE BLOOD COUNT 3864006 RDW 12.6 % 09/25/2018 COMPLETE BLOOD COUNT 5198907 Eos Auto 1.1 % 09/25/2018 COMPLETE BLOOD COUNT 9739862 Baso Auto 0.2 % 09/25/2018 COMPLETE BLOOD COUNT 6304632 Neutrophil Abs 4.65 10e9/L 09/25/2018 COMPLETE BLOOD COUNT 8944953 Lymphocyte Abs 2.84 10e9/L 09/25/2018 COMPLETE BLOOD COUNT 8400622 Monocyte Abs 0.51 10e9/L 09/25/2018 COMPLETE BLOOD COUNT 1207430 Eosinophil Abs 0.09 10e9/L 09/25/2018 COMPLETE BLOOD COUNT 6024517 RDW-SD 43.0 fL 09/25/2018 COMPLETE BLOOD COUNT 6573290 Basophil Abs 0.02 10e9/L 09/25/2018 COMPREHENSIVE METABOLIC 29135 AST 15 U/L 09/25/2018 COMPREHENSIVE METABOLIC 38914 ALT 20 U/L 09/25/2018 COMPREHENSIVE METABOLIC 82421 BUN 9 mg/dL 09/25/2018 COMPREHENSIVE METABOLIC 23765 ALBUMIN 4.3 g/dL 09/25/2018 COMPREHENSIVE METABOLIC 91689 CHLORIDE 107 mmol/L 09/25/2018 COMPREHENSIVE METABOLIC 57594 Bili Total 0.4 mg/dL 09/25/2018 COMPREHENSIVE METABOLIC 76823 ALK PHOS 51 U/L 09/25/2018 COMPREHENSIVE METABOLIC 94001 SODIUM 139 mmol/L 09/25/2018 COMPREHENSIVE METABOLIC 98449 CREATININE 0.61 mg/dL 09/25/2018 COMPREHENSIVE METABOLIC 61292 CALCIUM 9.1 mg/dL 09/25/2018 COMPREHENSIVE METABOLIC 81376 POTASSIUM 3.7 mmol/L 09/25/2018 COMPREHENSIVE METABOLIC 31649 Total Protein 6.3 g/dL 09/25/2018 COMPREHENSIVE METABOLIC 20873 Glucose 92 mg/dL 09/25/2018 COMPREHENSIVE METABOLIC 30840 Bicarbonate 24 mmol/L 09/25/2018 COMPREHENSIVE METABOLIC 84781 AGAP 8 mmol/L 09/25/2018 PT 6203815 PT 25.0 Seconds 09/25/2018 PT 3949883 INR 2.2 09/25/2018 GFR CALC 7973112 GFR Non Afr Amr >60 mL/min 09/25/2018 GFR CALC 5141151 GFR Afr Amr >60 mL/min 09/25/2018 PT 7263286 PT 25.7 Seconds 05/12/2018 PT 5371656 INR 2.3 05/12/2018 PT 8096322 PT TNP:Improper Specimen 04/30/2018 PT 3842842 INR TNP:Improper Specimen 04/30/2018 PT 5588171 PT 26.3 Seconds 02/05/2018 PT 8773225 INR 2.4 02/05/2018 ANTI STREPTOLYSIN O TITER(ASO) 47189 ASO Titr 118 IU/mL 8 VITAMIN B 12 85186 VITAM IN B12 302 pg/mL 12/02/2017 VITAMIN D TOTAL (25 HYDROXY) 86627 Vitamin D 25 OH 27.0 ng/mL 12/02/2017 PT 4110951 PT 17.3 Seconds 12/01/2017 PT 5925048 INR 1.4 12/01/2017 ANTI STREPTOLYSIN O TITER(ASO) 80472 ASO Titr 127 IU/mL 8 ANTI STREPTOLYSIN O TITER(ASO) 33033 ASO Titr 130 IU/mL 8 ANTINUCLEAR ANTIBODY SCREEN 84879 MAGALIE Ab Scr <1:80 10/02/2017 RA FACTOR 07665 RA FACTOR <20 IU/mL 10/02/2017 RA FACTOR 07247 RA Facto r Intp Negative 10/02/2017 VITAMIN D TOTAL (25 HYDROXY) 46876 Vitamin D 25 OH 18 ng/mL 8 IRON 52343 Iron 70 ug/dL 10/01/2017 VITAMIN B 12 68852 VITAM IN B12 377 pg/mL 10/01/2017 FREE T4 25821 T4 Free 1.31 ng/dL 10/01/2017 URIC ACID 88906 URIC ACID 3.9 mg/dL 10/01/2017 FERRITIN 24786 FERRITIN 68.0 ng/mL 10/01/2017 THYROID STIMULATING HORMONE 15131 TSH 1.401 uIU/mL 8 GLYCOSYLATED HEMOGLOBIN TEST 18856 Hgb A1c 14954-6 5.4 % 10/01/2017 FOLIC ACID 99980 Folate >24.0 ng/mL 10/01/2017 ASSAY TRIIODOTHYRONINE (T3) 31767 T3 Total 1.0 ng/mL 10/01/2017 ERYTHROCYTE SEDIMENTATION RATE 16225 Sed Rate 5 mm/hr 10/01/2017 MEAN GLUC 2222802 Calc M zach Gluc 108 mg/dL 10/01/2017 PT 7675163 PT 18.6 Seconds 08/07/2017 PT 6643977 INR 1.5 08/07/2017 COMPREHENSIVE METABOLIC 64526 AST 21 U/L 08/07/2017 COMPREHENSIVE METABOLIC 34139 ALT 37 U/L 08/07/2017 COMPREHENSIVE METABOLIC 92215 BUN 14 mg/dL 08/07/2017 COMPREHENSIVE METABOLIC 58347 ALBUMIN 4.5 g/dL 08/07/2017 COMPREHENSIVE METABOLIC 26403 CHLORIDE 104 mmol/L 08/07/2017 COMPREHENSIVE METABOLIC 67914 Bili Total 0.3 mg/dL 08/07/2017 COMPREHENSIVE METABOLIC 29673 ALK PHOS 55 U/L 08/07/2017 COMPREHENSIVE METABOLIC 74527 SODIUM 139 mmol/L 08/07/2017 COMPREHENSIVE METABOLIC 90087 CREATININE 0.77 mg/dL 08/07/2017 COMPREHENSIVE METABOLIC 78652 CALCIUM 9.2 mg/dL 08/07/2017 COMPREHENSIVE METABOLIC 56428 POTASSIUM 3.7 mmol/L 08/07/2017 COMPREHENSIVE METABOLIC 99907 Total Protein 6.5 g/dL 08/07/2017 COMPREHENSIVE METABOLIC 38768 Glucose 101 mg/dL 08/07/2017 COMPREHENSIVE METABOLIC 20124 Bicarbonate 25 mmol/L 08/07/2017 COMPREHENSIVE METABOLIC 95677 AGAP 10 mmol/L 08/07/2017 COMPLETE BLOOD COUNT 1258886 WBC 9.4 10e9/L 08/07/2017 COMPLETE BLOOD COUNT 9832702 RBC 4.38 10e12/L 8 COMPLETE BLOOD COUNT 0480967 HEMOGLOBIN 14.5 g/dL 08/07/2017 COMPLETE BLOOD COUNT 8058224 HEMATOCRIT 42.7 % 08/07/2017 COMPLETE BLOOD COUNT 6564630 MCV 97.5 fL 08/07/2017 COMPLETE BLOOD COUNT 1757241 MCH 33.1 pg 08/07/2017 COMPLETE BLOOD COUNT 5021823 MCHC 34.0 g/dL 08/07/2017 COMPLETE BLOOD COUNT 5959277 PLATELET COUNT 313 10e9/L 08/07/2017 COMPLETE BLOOD COUNT 6775933 Mean Plt Volume 8.6 fL 08/07/2017 COMPLETE BLOOD COUNT 8690167 Neut Auto 51.6 % 08/07/2017 COMPLETE BLOOD COUNT 6505406 Lymph Auto 40.0 % 08/07/2017 COMPLETE BLOOD COUNT 1263873 Dimmit Auto 6.8 % 08/07/2017 COMPLETE BLOOD COUNT 0285674 RDW 12.9 % 08/07/2017 COMPLETE BLOOD COUNT 9715424 Eos Auto 1.4 % 08/07/2017 COMPLETE BLOOD COUNT 9916657 Baso Auto 0.2 % 08/07/2017 COMPLETE BLOOD COUNT 9307308 Neutrophil Abs 4.85 10e9/L 08/07/2017 COMPLETE BLOOD COUNT 0903764 Lymphocyte Abs 3.76 10e9/L 08/07/2017 COMPLETE BLOOD COUNT 7912066 Monocyte Abs 0.64 10e9/L 08/07/2017 COMPLETE BLOOD COUNT 5861446 Eosinophil Abs 0.13 10e9/L 08/07/2017 COMPLETE BLOOD COUNT 2584046 RDW-SD 45.1 fL 08/07/2017 COMPLETE BLOOD COUNT 7436750 Basophil Abs 0.02 10e9/L 08/07/2017 GFR CALC 4636414 GFR Non Afr Amr >60 mL/min 08/07/2017 GFR CALC 2080802 GFR Afr Amr >60 mL/min 08/07/2017 COMPLETE BLOOD COUNT 9225521 WBC 9.2 10e9/L 07/15/2017 COMPLETE BLOOD COUNT 1256694 RBC 4.70 10e12/L 8 COMPLETE BLOOD COUNT 2747383 HEMOGLOBIN 15.4 g/dL 07/15/2017 COMPLETE BLOOD COUNT 4691721 HEMATOCRIT 46.2 % 07/15/2017 COMPLETE BLOOD COUNT 3288506 MCV 98.3 fL 07/15/2017 COMPLETE BLOOD COUNT 0591537 MCH 32.8 pg 07/15/2017 COMPLETE BLOOD COUNT 9569342 MCHC 33.3 g/dL 07/15/2017 COMPLETE BLOOD COUNT 1221047 PLATELET COUNT 348 10e9/L 07/15/2017 COMPLETE BLOOD COUNT 3592277 Mean Plt Volume 8.9 fL 07/15/2017 COMPLETE BLOOD COUNT 2157337 Neut Auto 60.6 % 07/15/2017 COMPLETE BLOOD COUNT 1849855 Lymph Auto 30.9 % 07/15/2017 COMPLETE BLOOD COUNT 6635968 Dimmit Auto 7.1 % 07/15/2017 COMPLETE BLOOD COUNT 9601639 RDW 13.1 % 07/15/2017 COMPLETE BLOOD COUNT 7607288 Eos Auto 1.2 % 07/15/2017 COMPLETE BLOOD COUNT 4990728 Baso Auto 0.2 % 07/15/2017 COMPLETE BLOOD COUNT 9561637 Neutrophil Abs 5.58 10e9/L 07/15/2017 COMPLETE BLOOD COUNT 6937261 Lymphocyte Abs 2.84 10e9/L 07/15/2017 COMPLETE BLOOD COUNT 9588170 Monocyte Abs 0.65 10e9/L 07/15/2017 COMPLETE BLOOD COUNT 3530228 Eosinophil Abs 0.11 10e9/L 07/15/2017 COMPLETE BLOOD COUNT 7200421 RDW-SD 46.1 fL 07/15/2017 COMPLETE BLOOD COUNT 0120732 Basophil Abs 0.02 10e9/L 07/15/2017 GFR CALC 6142563 GFR Non Afr Amr >60 mL/min 07/15/2017 GFR CALC 9826238 GFR Afr Amr >60 mL/min 07/15/2017 COMPREHENSIVE METABOLIC 99807 AST 16 U/L 07/15/2017 COMPREHENSIVE METABOLIC 12645 ALT 20 U/L 07/15/2017 COMPREHENSIVE METABOLIC 67334 BUN 13 mg/dL 07/15/2017 COMPREHENSIVE METABOLIC 67673 ALBUMIN 4.6 g/dL 07/15/2017 COMPREHENSIVE METABOLIC 28015 CHLORIDE 106 mmol/L 07/15/2017 COMPREHENSIVE METABOLIC 15926 Bili Total 0.3 mg/dL 07/15/2017 COMPREHENSIVE METABOLIC 87180 ALK PHOS 50 U/L 07/15/2017 COMPREHENSIVE METABOLIC 93187 SODIUM 137 mmol/L 07/15/2017 COMPREHENSIVE METABOLIC 98217 CREATININE 0.62 mg/dL 07/15/2017 COMPREHENSIVE METABOLIC 91219 CALCIUM 9.2 mg/dL 07/15/2017 COMPREHENSIVE METABOLIC 88855 POTASSIUM 3.8 mmol/L 07/15/2017 COMPREHENSIVE METABOLIC 39873 Total Protein 6.7 g/dL 07/15/2017 COMPREHENSIVE METABOLIC 29991 Glucose 83 mg/dL 07/15/2017 COMPREHENSIVE METABOLIC 98121 Bicarbonate 30 mmol/L 07/15/2017 COMPREHENSIVE METABOLIC 03280 AGAP 1 mmol/L 07/15/2017 THYROID STIMULATING HORMONE 52433 TSH 2.111 uIU/mL 201 7 COMPREHENSIVE METABOLIC 14809 AST 33 U/L 08/27/2016 COMPREHENSIVE METABOLIC 78373 ALT 55 U/L 08/27/2016 COMPREHENSIVE METABOLIC 95980 BUN 11 mg/dL 08/27/2016 COMPREHENSIVE METABOLIC 27597 ALBUMIN 4.6 g/dL 08/27/2016 COMPREHENSIVE METABOLIC 54617 CHLORIDE 103 mmol/L 08/27/2016 COMPREHENSIVE METABOLIC 25040 Bili Total 0.3 mg/dL 08/27/2016 COMPREHENSIVE METABOLIC 61416 ALK PHOS 60 U/L 08/27/2016 COMPREHENSIVE METABOLIC 11085 SODIUM 140 mmol/L 08/27/2016 COMPREHENSIVE METABOLIC 25533 CREATININE 0.69 mg/dL 08/27/2016 COMPREHENSIVE METABOLIC 79169 CALCIUM 9.3 mg/dL 08/27/2016 COMPREHENSIVE METABOLIC 23538 POTASSIUM 3.7 mmol/L 08/27/2016 COMPREHENSIVE METABOLIC 17961 Total Protein 6.8 g/dL 08/27/2016 COMPREHENSIVE METABOLIC 17971 Glucose 79 mg/dL 08/27/2016 COMPREHENSIVE METABOLIC 22144 Bicarbonate 25 mmol/L 08/27/2016 COMPREHENSIVE METABOLIC 94756 AGAP 12 mmol/L 08/27/2016 COMPLETE BLOOD COUNT 7475436 WBC 9.4 10e9/L 08/27/2016 COMPLETE BLOOD COUNT 6779479 RBC 4.35 10e12/L 7 COMPLETE BLOOD COUNT 9486287 HEMOGLOBIN 14.2 g/dL 08/27/2016 COMPLETE BLOOD COUNT 7658568 HEMATOCRIT 41.5 % 08/27/2016 COMPLETE BLOOD COUNT 8809560 MCV 95.4 fL 08/27/2016 COMPLETE BLOOD COUNT 7397197 MCH 32.6 pg 08/27/2016 COMPLETE BLOOD COUNT 1480729 MCHC 34.2 g/dL 08/27/2016 COMPLETE BLOOD COUNT 7820326 PLATELET COUNT 289 10e9/L 08/27/2016 COMPLETE BLOOD COUNT 9454332 Mean Plt Volume 9.8 fL 08/27/2016 COMPLETE BLOOD COUNT 2114855 Neut Auto 47.7 % 08/27/2016 COMPLETE BLOOD COUNT 7324045 Lymph Auto 44.2 % 08/27/2016 COMPLETE BLOOD COUNT 5798847 Dimmit Auto 6.6 % 08/27/2016 COMPLETE BLOOD COUNT 2240729 RDW 12.9 % 08/27/2016 COMPLETE BLOOD COUNT 0597834 Eos Auto 1.4 % 08/27/2016 COMPLETE BLOOD COUNT 8446382 Baso Auto 0.1 % 08/27/2016 COMPLETE BLOOD COUNT 1952183 Neutrophil Abs 4.48 10e9/L 08/27/2016 COMPLETE BLOOD COUNT 8464378 Lymphocyte Abs 4.15 10e9/L 08/27/2016 COMPLETE BLOOD COUNT 4642489 Monocyte Abs 0.62 10e9/L 08/27/2016 COMPLETE BLOOD COUNT 5081987 Eosinophil Abs 0.13 10e9/L 08/27/2016 COMPLETE BLOOD COUNT 1106479 RDW-SD 43.9 fL 08/27/2016 COMPLETE BLOOD COUNT 0692576 Basophil Abs 0.01 10e9/L 08/27/2016 PT 0583158 PT 15.0 Seconds 08/27/2016 PT 7520913 INR 1.2 08/27/2016 GFR CALC 9064602 GFR Afr Amr >60 mL/min 08/27/2016 GFR CALC 3917714 GFR Non Afr Amr >60 mL/min 08/27/2016 GFR CALC 0267133 GFR Non Afr Amr >60 mL/min 05/24/2016 GFR CALC 1364970 GFR Afr Amr >60 mL/min 05/24/2016 COMPREHENSIVE METABOLIC 27140 AST 19 U/L 05/24/2016 COMPREHENSIVE METABOLIC 69971 ALT 23 U/L 05/24/2016 COMPREHENSIVE METABOLIC 32817 BUN 12 mg/dL 05/24/2016 COMPREHENSIVE METABOLIC 71525 ALBUMIN 4.1 g/dL 05/24/2016 COMPREHENSIVE METABOLIC 48050 CHLORIDE 105 mmol/L 05/24/2016 COMPREHENSIVE METABOLIC 42567 Bili Total 0.4 mg/dL 05/24/2016 COMPREHENSIVE METABOLIC 07876 ALK PHOS 52 U/L 05/24/2016 COMPREHENSIVE METABOLIC 10103 SODIUM 136 mmol/L 05/24/2016 COMPREHENSIVE METABOLIC 49034 CREATININE 0.61 mg/dL 05/24/2016 COMPREHENSIVE METABOLIC 30936 CALCIUM 8.8 mg/dL 05/24/2016 COMPREHENSIVE METABOLIC 52672 POTASSIUM 3.8 mmol/L 05/24/2016 COMPREHENSIVE METABOLIC 56030 Total Protein 6.2 g/dL 05/24/2016 COMPREHENSIVE METABOLIC 08477 Glucose 95 mg/dL 05/24/2016 COMPREHENSIVE METABOLIC 65821 Bicarbonate 19 mmol/L 05/24/2016 COMPREHENSIVE METABOLIC 76898 AGAP 12 mmol/L 05/24/2016 PT 3047803 PT 25.7 Seconds 05/24/2016 PT 6253863 INR 2.4 05/24/2016 PT 3229461 PT 22.2 Seconds 04/11/2016 PT 3985301 INR 2.0 04/11/2016 PT 4185316 PT 16.5 Seconds 03/13/2016 PT 2085883 INR 1.4 03/13/2016 THYROID STIMULATING HORMONE 70341 TSH 1.151 uIU/mL 6 COMPLETE BLOOD COUNT 9522278 WBC 10.0 10e9/L 03/12/2016 COMPLETE BLOOD COUNT 5114504 RBC 4.08 10e12/L 6 COMPLETE BLOOD COUNT 3713091 HEMOGLOBIN 13.5 g/dL 03/12/2016 COMPLETE BLOOD COUNT 6332921 HEMATOCRIT 38.8 % 03/12/2016 COMPLETE BLOOD COUNT 7776052 MCV 95.1 fL 03/12/2016 COMPLETE BLOOD COUNT 9171553 MCH 33.1 pg 03/12/2016 COMPLETE BLOOD COUNT 8601881 MCHC 34.8 g/dL 03/12/2016 COMPLETE BLOOD COUNT 1804071 PLATELET COUNT 282 10e9/L 03/12/2016 COMPLETE BLOOD COUNT 6425475 Mean Plt Volume 9.6 fL 03/12/2016 COMPLETE BLOOD COUNT 4717873 Neut Auto 53.5 % 03/12/2016 COMPLETE BLOOD COUNT 2796231 Lymph Auto 39.0 % 03/12/2016 COMPLETE BLOOD COUNT 1731696 Dimmit Auto 5.9 % 03/12/2016 COMPLETE BLOOD COUNT 4416303 RDW 12.6 % 03/12/2016 COMPLETE BLOOD COUNT 2721246 Eos Auto 1.4 % 03/12/2016 COMPLETE BLOOD COUNT 3219803 Baso Auto 0.2 % 03/12/2016 COMPLETE BLOOD COUNT 8168423 Neutrophil Abs 5.35 10e9/L 03/12/2016 COMPLETE BLOOD COUNT 9935262 Lymphocyte Abs 3.90 10e9/L 03/12/2016 COMPLETE BLOOD COUNT 0680013 Monocyte Abs 0.59 10e9/L 03/12/2016 COMPLETE BLOOD COUNT 9999085 Eosinophil Abs 0.14 10e9/L 03/12/2016 COMPLETE BLOOD COUNT 2190201 RDW-SD 42.7 fL 03/12/2016 COMPLETE BLOOD COUNT 9478784 Basophil Abs 0.02 10e9/L 03/12/2016 COMPREHENSIVE METABOLIC 34049 AST 13 U/L 03/12/2016 COMPREHENSIVE METABOLIC 98632 ALT 11 U/L 03/12/2016 COMPREHENSIVE METABOLIC 68394 BUN 11 mg/dL 03/12/2016 COMPREHENSIVE METABOLIC 55352 ALBUMIN 4.1 g/dL 03/12/2016 COMPREHENSIVE METABOLIC 37596 CHLORIDE 107 mmol/L 03/12/2016 COMPREHENSIVE METABOLIC 60983 Bili Total 0.3 mg/dL 03/12/2016 COMPREHENSIVE METABOLIC 50880 ALK PHOS 41 U/L 03/12/2016 COMPREHENSIVE METABOLIC 85489 SODIUM 137 mmol/L 03/12/2016 COMPREHENSIVE METABOLIC 04844 CREATININE 0.62 mg/dL 03/12/2016 COMPREHENSIVE METABOLIC 40450 CALCIUM 9.0 mg/dL 03/12/2016 COMPREHENSIVE METABOLIC 77674 POTASSIUM 3.8 mmol/L 03/12/2016 COMPREHENSIVE METABOLIC 41336 Total Protein 6.1 g/dL 03/12/2016 COMPREHENSIVE METABOLIC 66201 Glucose 95 mg/dL 03/12/2016 COMPREHENSIVE METABOLIC 31457 Bicarbonate 23 mmol/L 03/12/2016 COMPREHENSIVE METABOLIC 94486 AGAP 7 mmol/L 03/12/2016 GFR CALC 7510756 GFR Non Afr Amr >60 mL/min 03/12/2016 GFR CALC 3605714 GFR Afr Amr >60 mL/min 03/12/2016 PT 0178960 PT 14.4 Seconds 02/12/2016 PT 0260665 INR 1.2 02/12/2016 PT 7972034 PT 26.1 Seconds 02/01/2016 PT 6622814 INR 2.4 02/01/2016 [place] VIRUS VCA G/M + EB[place] + [place] [address]|8 6665 x 2|61825 EBV VCA Ab IgG 3.70 11/13/2015 [place] VIR[place] VCA G/M + [place] + [place] [address]|8 6665 x 2|77365 EBV VCA Ab IgM 0.47 11/13/2015 [place] VCA [place] + [place] + [place] [address]|8 6665 x 2|10019 EBV Nuclear Ab 2.24 11/13/2015 EB VIRUS VCA G/M + [place] + [place] [address]|8 6665 x 2|06052 EBV Early Ab 1.37 11/13/2015 PT 1638771 PT 18.9 Seconds 11/10/2015 PT 5387207 INR 1.6 11/10/2015 PT 9374395 PT 16.8 Seconds 09/29/2015 PT 8865625 INR 1.4 09/29/2015 COMPLETE BLOOD COUNT 4699185 WBC 9.6 10e9/L 09/29/2015 COMPLETE BLOOD COUNT 2684065 RBC 4.51 10e12/L 6 COMPLETE BLOOD COUNT 0080901 HEMOGLOBIN 14.8 g/dL 09/29/2015 COMPLETE BLOOD COUNT 1238817 HEMATOCRIT 43.3 % 09/29/2015 COMPLETE BLOOD COUNT 0086478 MCV 96.0 fL 09/29/2015 COMPLETE BLOOD COUNT 9778987 MCH 32.8 pg 09/29/2015 COMPLETE BLOOD COUNT 2069592 MCHC 34.2 g/dL 09/29/2015 COMPLETE BLOOD COUNT 9649664 PLATELET COUNT 310 10e9/L 09/29/2015 COMPLETE BLOOD COUNT 3378022 Mean Plt Volume 9.7 fL 09/29/2015 COMPLETE BLOOD COUNT 8933126 Neutrophil 60.3 % 09/29/2015 COMPLETE BLOOD COUNT 1790031 Lymph Auto % 32.4 % 09/29/2015 COMPLETE BLOOD COUNT 0042742 Monocyte Auto % 6.5 % 09/29/2015 COMPLETE BLOOD COUNT 3333892 RDW 12.8 % 09/29/2015 COMPLETE BLOOD COUNT 4948626 Eosinophil 0.7 % 09/29/2015 COMPLETE BLOOD COUNT 1466413 Basophil 0.1 % 09/29/2015 COMPLETE BLOOD COUNT 7042020 Neutrophil Abs 5.79 10e9/L 09/29/2015 COMPLETE BLOOD COUNT 0161412 Lymphoctye Abs 3.11 10e9/L 09/29/2015 COMPLETE BLOOD COUNT 4572399 Monocyte Abs 0.62 10e9/L 09/29/2015 COMPLETE BLOOD COUNT 8576454 Eosinophil Abs 0.07 10e9/L 09/29/2015 COMPLETE BLOOD COUNT 8987361 RDW-SD 43.6 fL 09/29/2015 COMPLETE BLOOD COUNT 0828670 Basophil Abs 0.01 10e9/L 09/29/2015 IRON 06367 Iron 86 ug/dL 09/29/2015 COMPLETE BLOOD COUNT 1094619 WBC 9.6 10e9/L 09/29/2015 COMPLETE BLOOD COUNT 2917918 RBC 4.51 10e12/L 6 COMPLETE BLOOD COUNT 6368319 HEMOGLOBIN 14.8 g/dL 09/29/2015 COMPLETE BLOOD COUNT 5687861 HEMATOCRIT 43.3 % 09/29/2015 COMPLETE BLOOD COUNT 9546607 MCV 96.0 fL 09/29/2015 COMPLETE BLOOD COUNT 7613136 MCH 32.8 pg 09/29/2015 COMPLETE BLOOD COUNT 3171269 MCHC 34.2 g/dL 09/29/2015 COMPLETE BLOOD COUNT 1200337 PLATELET COUNT 310 10e9/L 09/29/2015 COMPLETE BLOOD COUNT 7896637 Mean Plt Volume 9.7 fL 09/29/2015 COMPLETE BLOOD COUNT 1665743 Neutrophil 60.3 % 09/29/2015 COMPLETE BLOOD COUNT 1548591 Lymph Auto % 32.4 % 09/29/2015 COMPLETE BLOOD COUNT 5884021 Monocyte Auto % 6.5 % 09/29/2015 COMPLETE BLOOD COUNT 0889809 RDW 12.8 % 09/29/2015 COMPLETE BLOOD COUNT 7664337 Eosinophil 0.7 % 09/29/2015 COMPLETE BLOOD COUNT 9582121 Basophil 0.1 % 09/29/2015 COMPLETE BLOOD COUNT 4591277 Neutrophil Abs 5.79 10e9/L 09/29/2015 COMPLETE BLOOD COUNT 8785369 Lymphoctye Abs 3.11 10e9/L 09/29/2015 COMPLETE BLOOD COUNT 9507312 Monocyte Abs 0.62 10e9/L 09/29/2015 COMPLETE BLOOD COUNT 9689423 Eosinophil Abs 0.07 10e9/L 09/29/2015 COMPLETE BLOOD COUNT 4854030 RDW-SD 43.6 fL 09/29/2015 COMPLETE BLOOD COUNT 8031467 Basophil Abs 0.01 10e9/L 09/29/2015 PT 7242994 PT 16.8 Seconds 09/29/2015 PT 9758403 INR 1.4 09/29/2015 IRON 03654 Iron 86 ug/dL 09/29/2015 PT MT IVANNA 09733 PRO T PAULIE 19.4 SEC 07/27/2015 PT MT IVANNA 61312 INR M CMC 1.7 07/27/2015 PT MT IVANNA 95401 PRO T PAULIE 21.4 SEC 06/21/2015 PT MT IVANNA 88220 INR M CMC 1.9 06/21/2015 PT MT IVANNA 41300 PRO T PAULIE 24.5 SEC 05/24/2015 PT MT IVANNA 36644 INR M CMC 2.3 05/24/2015 Review of [...] None Procedures Procedure Codes Date PT CPT-4: 7353139 03/08/2019 VIRUS INOCULATION TI SSUE CPT-4: 70328 03/08/2019 AEROBIC WOUND CULTUR E & STN CPT-4: 57958 03/08/2019 ROUTINE VENIPUNCTURE CPT-4: 87336 02/17/2019 PT CPT-4: 8647729 02/17/2019 URINE CULTURE/ COLON Y COUNT CPT-4: 05847 02/08/2019 ROUTINE VENIPUNCTURE CPT-4: 10414 01/19/2019 PROTHROMBIN TIME CPT-4: 79210 01/19/2019 COMPLETE CBC W/AUTO DIFF WBC CPT-4: 72713 01/19/2019 ANTISTREPTOLYSIN O T ITER CPT-4: 10030 01/19/2019 HEPATIC FUNCTION PANEL CPT-4: 03521 01/19/2019 MYCOPLASMA ANTIBODY, IFA CPT-4: 29380U1 01/19/2019 RESPIRATORY CULTURE & STAIN CPT-4: 64894 01/19/2019 STREP A ASSAY W/OPTIC CPT-4: 68690 01/19/2019 THER/PROPH/DIAG INJ SC/IM CPT-4: 15217 01/04/2019 TRIAMCINOLONE ACET I NJ NOS CPT-4: J3301 01/04/2019 ROUTINE VENIPUNCTURE CPT-4: 88404 12/18/2018 COMPLETE CBC W/AUTO DIFF WBC CPT-4: 53597 12/18/2018 COMPREHEN METABOLIC PANEL CPT-4: 61188 12/18/2018 HYDRATION IV INFUSIO N INIT CPT-4: 28027 12/16/2018 STREP A ASSAY W/OPTIC CPT-4: 42700 12/02/2018 ROUTINE VENIPUNCTURE CPT-4: 78442 11/30/2018 PT CPT-4: 7284097 11/30/2018 CEFTRIAXONE SODIUM I NJECTION CPT-4: J0696 11/30/2018 THER/PROPH/DIAG INJ SC/IM CPT-4: 84208 11/30/2018 URINE CULTURE/ COLON Y COUNT CPT-4: 27241 11/20/2018 URINALYSIS NONAUTO W /O SCOPE CPT-4: 59888 11/20/2018 CEFTRIAXONE SODIUM I NJECTION CPT-4: J0696 11/12/2018 THER/PROPH/DIAG INJ SC/IM CPT-4: 17848 11/12/2018 STREP A ASSAY W/OPTIC CPT-4: 66579 11/11/2018 CEFTRIAXONE SODIUM I NJECTION CPT-4: J0696 11/11/2018 THER/PROPH/DIAG INJ SC/IM CPT-4: 86870 11/11/2018 ROUTINE VENIPUNCTURE CPT-4: 25697 11/11/2018 ANTISTREPTOLYSIN O T ITER CPT-4: 72938 11/11/2018 COMPLETE CBC W/AUTO DIFF WBC CPT-4: 76564 11/11/2018 ROUTINE VENIPUNCTURE CPT-4: 33556 10/27/2018 PT CPT-4: 2147154 10/27/2018 THER/PROPH/DIAG INJ SC/IM CPT-4: 67978 10/09/2018 TRIAMCINOLONE ACET I NJ NOS CPT-4: J3301 10/09/2018 CEFTRIAXONE SODIUM I NJECTION CPT-4: J0696 10/08/2018 THER/PROPH/DIAG INJ SC/IM CPT-4: 81485 10/08/2018 CEFTRIAXONE SODIUM I NJECTION CPT-4: J0696 10/07/2018 THER/PROPH/DIAG INJ SC/IM CPT-4: 53530 10/07/2018 ROUTINE VENIPUNCTURE CPT-4: 96862 09/25/2018 COMPREHEN METABOLIC PANEL CPT-4: 16498 09/25/2018 COMPLETE CBC W/AUTO DIFF WBC CPT-4: 97053 09/25/2018 PT CPT-4: 6160374 09/25/2018 URINE CULTURE/ COLON Y COUNT CPT-4: 17390 09/10/2018 URINALYSIS NONAUTO W /O SCOPE CPT-4: 37296 09/10/2018 CEFTRIAXONE SODIUM I NJECTION CPT-4: J0696 09/08/2018 THER/PROPH/DIAG INJ SC/IM CPT-4: 96553 09/08/2018 ROUTINE VENIPUNCTURE CPT-4: 94092 08/14/2018 PT CPT-4: 4447048 08/14/2018 CEFTRIAXONE SODIUM I NJECTION CPT-4: J0696 07/02/2018 THER/PROPH/DIAG INJ SC/IM CPT-4: 90224 07/02/2018 THER/PROPH/DIAG INJ SC/IM CPT-4: 08416 07/02/2018 TRIAMCINOLONE ACET I NJ NOS CPT-4: J3301 07/02/2018 ROUTINE VENIPUNCTURE CPT-4: 33508 06/22/2018 ANTISTREPTOLYSIN O T ITER CPT-4: 18556 06/22/2018 ROUTINE VENIPUNCTURE CPT-4: 27549 06/17/2018 PROTHROMBIN TIME CPT-4: 51297 06/17/2018 URINE CULTURE/ COLON Y COUNT CPT-4: 39272 06/17/2018 CEFTRIAXONE SODIUM I NJECTION CPT-4: J0696 05/12/2018 THER/PROPH/DIAG INJ SC/IM CPT-4: 92607 05/12/2018 PROTHROMBIN TIME CPT-4: 56550 05/11/2018 CEFTRIAXONE SODIUM I NJECTION CPT-4: J0696 05/11/2018 THER/PROPH/DIAG INJ SC/IM CPT-4: 85322 05/11/2018 ROUTINE VENIPUNCTURE CPT-4: 58731 04/30/2018 PROTHROMBIN TIME CPT-4: 87511 04/30/2018 THER/PROPH/DIAG INJ SC/IM CPT-4: 56260 04/02/2018 TRIAMCINOLONE ACET I NJ NOS CPT-4: J3301 04/02/2018 IIV4 VACCINE 3 YRS+ IM AND UP CPT-4: 02918 03/24/2018 IMMUNIZATION ADMIN CPT- 4: 75127 03/24/2018 ROUTINE VENIPUNCTURE CPT-4: 13343 03/24/2018 PT CPT-4: 1945409 03/24/2018 PROTHROMBIN TIME CPT-4: 16301 02/24/2018 ROUTINE VENIPUNCTURE CPT-4: 10875 02/24/2018 ROUTINE VENIPUNCTURE CPT-4: 62644 02/05/2018 PROTHROMBIN TIME CPT-4: 07135 02/05/2018 URINE CULTURE/ COLON Y COUNT CPT-4: 75882 02/05/2018 CEFTRIAXONE SODIUM I NJECTION CPT-4: J0696 01/29/2018 THER/PROPH/DIAG INJ SC/IM CPT-4: 79850 01/29/2018 CEFTRIAXONE SODIUM I NJECTION CPT-4: J0696 01/28/2018 THER/PROPH/DIAG INJ SC/IM CPT-4: 56116 01/28/2018 URINALYSIS NONAUTO W /O SCOPE CPT-4: 71390 01/26/2018 URINE CULTURE/ COLON Y COUNT CPT-4: 09283 01/26/2018 ROUTINE VENIPUNCTURE CPT-4: 25302 01/01/2018 PROTHROMBIN TIME CPT-4: 05813 01/01/2018 THER/PROPH/DIAG INJ SC/IM CPT-4: 84085 12/25/2017 TRIAMCINOLONE ACET I NJ NOS CPT-4: J3301 12/25/2017 DEXAMETHASONE SODIUM PHOS CPT-4: J1100 12/25/2017 STREP A ASSAY W/OPTIC CPT-4: 65550 12/11/2017 CEFTRIAXONE SODIUM I NJECTION CPT-4: J0696 12/11/2017 THER/PROPH/DIAG INJ SC/IM CPT-4: 38908 12/11/2017 ROUTINE VENIPUNCTURE CPT-4: 99088 12/01/2017 ANTISTREPTOLYSIN O T ITER CPT-4: 87731 12/01/2017 PROTHROMBIN TIME CPT-4: 00682 12/01/2017 VITAMIN D TOTAL (25 HYDROXY) CPT-4: 86286 12/01/2017 VITAMIN B-12 CPT-4: 86163 12/01/2017 SPECIMEN HANDLING OF FICE-LAB CPT-4: 75035 11/05/2017 ROUTINE VENIPUNCTURE CPT-4: 42243 10/14/2017 ANTISTREPTOLYSIN O T ITER CPT-4: 58830 10/14/2017 ROUTINE VENIPUNCTURE CPT-4: 52209 10/06/2017 PROTHROMBIN TIME CPT-4: 74645 10/06/2017 THER/PROPH/DIAG INJ SC/IM CPT-4: 16672 10/06/2017 TRIAMCINOLONE ACET I NJ NOS CPT-4: J3301 10/06/2017 ROUTINE VENIPUNCTURE CPT-4: 63874 10/01/2017 VITAMIN B-12 CPT-4: 69907 10/01/2017 FOLIC ACID CPT-4: 51149 10/01/2017 ASSAY THYROID STIM H ORMONE CPT-4: 37126 10/01/2017 ASSAY OF FREE THYROXINE CPT-4: 13920 10/01/2017 ASSAY TRIIODOTHYRONI NE (T3) CPT-4: 73011 10/01/2017 ASSAY OF BLOOD/URIC ACID CPT-4: 02097 10/01/2017 RHEUMATOID FACTOR QUANT CPT-4: 76573 10/01/2017 RBC SED RATE AUTOMATED CPT-4: 46891 10/01/2017 ANTISTREPTOLYSIN O T ITER CPT-4: 91186 10/01/2017 ASSAY OF IRON CPT-4: 91657 10/01/2017 ASSAY OF FERRITIN CPT-4: 76341 10/01/2017 ANTINUCLEAR ANTIBODIES CPT-4: 97112 10/01/2017 A1C HPLC CPT-4: 50880 10/01/2017 VITAMIN D TOTAL (25 HYDROXY) CPT-4: 09956 10/01/2017 THER/PROPH/DIAG INJ SC/IM CPT-4: 85895 09/05/2017 TRIAMCINOLONE ACET I NJ NOS CPT-4: J3301 09/05/2017 URINALYSIS NONAUTO W /O SCOPE CPT-4: 64514 09/05/2017 URINE CULTURE/ COLON Y COUNT CPT-4: 16598 09/05/2017 ROUTINE VENIPUNCTURE CPT-4: 72215 09/04/2017 PROTHROMBIN TIME CPT-4: 80079 09/04/2017 ROUTINE VENIPUNCTURE CPT-4: 78251 08/07/2017 COMPLETE CBC W/AUTO DIFF WBC CPT-4: 67563 08/07/2017 COMPREHEN METABOLIC PANEL CPT-4: 03105 08/07/2017 PROTHROMBIN TIME CPT-4: 66743 08/07/2017 INFLUENZA ASSAY W/OPTIC CPT-4: 79280 07/15/2017 ROUTINE VENIPUNCTURE CPT-4: 72476 07/15/2017 COMPREHEN METABOLIC PANEL CPT-4: 31592 07/15/2017 COMPLETE CBC W/AUTO DIFF WBC CPT-4: 61431 07/15/2017 CEFTRIAXONE SODIUM I NJECTION CPT-4: J0696 07/04/2017 THER/PROPH/DIAG INJ SC/IM CPT-4: 79454 07/04/2017 THER/PROPH/DIAG INJ SC/IM CPT-4: 25611 07/04/2017 TRIAMCINOLONE ACET I NJ NOS CPT-4: J3301 07/04/2017 CEFTRIAXONE SODIUM I NJECTION CPT-4: J0696 07/02/2017 THER/PROPH/DIAG INJ SC/IM CPT-4: 06939 07/02/2017 CEFTRIAXONE SODIUM I NJECTION CPT-4: J0696 07/01/2017 THER/PROPH/DIAG INJ SC/IM CPT-4: 96806 07/01/2017 ROUTINE VENIPUNCTURE CPT-4: 19199 06/19/2017 PROTHROMBIN TIME CPT-4: 79985 06/19/2017 THER/PROPH/DIAG INJ SC/IM CPT-4: 10124 04/01/2017 TRIAMCINOLONE ACET I NJ NOS CPT-4: J3301 04/01/2017 ROUTINE VENIPUNCTURE CPT-4: 09301 02/10/2017 PROTHROMBIN TIME CPT-4: 00887 02/10/2017 URINALYSIS NONAUTO W /O SCOPE CPT-4: 87708 02/10/2017 URINE CULTURE/ COLON Y COUNT CPT-4: 59825 02/10/2017 ROUTINE VENIPUNCTURE CPT-4: 99036 02/05/2017 PROTHROMBIN TIME CPT-4: 77776 02/05/2017 THROAT CULTURE CPT-4: 06076 02/03/2017 STREP A ASSAY W/OPTIC CPT-4: 69280 01/13/2017 ROUTINE VENIPUNCTURE CPT-4: 05726 12/18/2016 PROTHROMBIN TIME CPT-4: 47106 12/18/2016 URINE CULTURE/ COLON Y COUNT CPT-4: 81484 08/27/2016 ASSAY THYROID STIM H ORMONE CPT-4: 44760 08/27/2016 COMPREHEN METABOLIC PANEL CPT-4: 32581 08/27/2016 COMPLETE CBC W/AUTO DIFF WBC CPT-4: 55188 08/27/2016 PROTHROMBIN TIME CPT-4: 16638 08/27/2016 ROUTINE VENIPUNCTURE CPT-4: 43303 08/27/2016 ROUTINE VENIPUNCTURE CPT-4: 10456 05/24/2016 COMPREHEN METABOLIC PANEL CPT-4: 00797 05/24/2016 PROTHROMBIN TIME CPT-4: 64502 05/24/2016 URINALYSIS NONAUTO W /O SCOPE CPT-4: 32720 04/23/2016 URINE CULTURE/ COLON Y COUNT CPT-4: 25768 04/23/2016 PRESCRIP TRANSMIT A ERX SY CPT-4: G8553 04/23/2016 AEROBIC WOUND CULTUR E & STN CPT-4: 52629 04/17/2016 ROUTINE VENIPUNCTURE CPT-4: 65225 04/11/2016 PROTHROMBIN TIME CPT-4: 25912 04/11/2016 ROUTINE VENIPUNCTURE CPT-4: 45222 03/12/2016 COMPLETE CBC W/AUTO DIFF WBC CPT-4: 50003 03/12/2016 COMPREHEN METABOLIC PANEL CPT-4: 07691 03/12/2016 ASSAY THYROID STIM H ORMONE CPT-4: 27210 03/12/2016 PROTHROMBIN TIME CPT-4: 12230 03/12/2016 ROUTINE VENIPUNCTURE CPT-4: 79176 02/12/2016 PROTHROMBIN TIME CPT-4: 04893 02/12/2016 ROUTINE VENIPUNCTURE CPT-4: 80853 02/01/2016 PROTHROMBIN TIME CPT-4: 71904 02/01/2016 ROUTINE VENIPUNCTURE CPT-4: 30944 01/22/2016 PROTHROMBIN TIME CPT-4: 08499 01/22/2016 ROUTINE VENIPUNCTURE CPT-4: 05926 11/10/2015 PROTHROMBIN TIME CPT-4: 14067 11/10/2015 CEFTRIAXONE SODIUM I NJECTION CPT-4: J0696 11/10/2015 THER/PROPH/DIAG INJ SC/IM CPT-4: 24947 11/10/2015 EB VIRUS VCA G/M + E BNA + EA CPT-4: 04581|85674 x 2|61615 016 THROAT CULTURE CPT-4: 42492 11/09/2015 STREP A ASSAY W/OPTIC CPT-4: 71355 11/09/2015 STREP A ASSAY W/OPTIC CPT-4: 22549 10/02/2015 ROUTINE VENIPUNCTURE CPT-4: 73695 09/29/2015 COMPLETE CBC W/AUTO DIFF WBC CPT-4: 05692 09/29/2015 ASSAY OF IRON CPT-4: 44773 09/29/2015 PROTHROMBIN TIME CPT-4: 39743 09/29/2015 ROUTINE VENIPUNCTURE CPT-4: 52805 07/27/2015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 OFFICE/OUTPA TIENT VISIT EST Diagnosis: snf (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[ICD10: Z79.01] Kristine BRAMBILA [employer] [facility] CPT-4: 68800 06/21/2015 OFFICE/OUTPATIENT SIT EST Diagnosis: Fibromyalgia[ICD10: M79.7] Kristine BRAMBILA [employer] [facility] CPT-4: 68967 06/08/2015 ([id number]) OFFICE/OUTPA TIENT VISIT EST Diagnosis: Dysuria[ICD10: R30.0] Kristine BRAMBILA [employer] [facility] CPT-4: 89463 05/31/2015 OFFICE/OUTPATIENT SIT NEW Diagnosis: Localized enlarged lymph nodes[ICD10: R59.0] Diagnosis: Benign intracranial hypertension[ICD10: G93.2] Diagnosis: Personal history of pulmonary embolism[ICD10: Z86.711] 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 Sera [employer] [facility] CPT-4: 80956 05/24/2015 Plan of Care Planned Activity Notes C odes Status Date Visit Diagnosis Plan: snf (current ) use of 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 Discussion: updated [...] ICD-10 : R21 03/08/2019 Appointment: Ivon Sky [address] [place], [place] [address] ACUTE ILLNESS 03/08/2019 Patient Education: mupirocin calcium- Op [employer] Coupon [id number] https://www.MySmartPrice/samplemd/resources/getResource/61/[email or web address].pdf Completed 03/08/2019 Visit Diagnosis Plan: Epistaxis Disc ussion: Afrin to right nares BID x 3 days Check PT/INR now ICD-9 : 784.7 ICD-10 : R04.0 02/17/2019 Visit Diagnosis Plan: Radiculopathy, site unspecified Discussion: Check L/S spine x-ray to start with ICD-9 : 724.4 ICD-10 : M54.10 02/17/2019 Appointment: Kristine Brambila WPtel: [facility] [place] 02/17/2019 Care Plan: X-RAY EXAM L-S SPINE 2/3 VWS LOINC : 96653-3 Pending 02/17/2019 Appointment: Ivon Sky [address] [place], [place] [address] [place] CANCELED 02/16/2019 Visit Diagnosis Plan: Unspecified [...] ICD-10 : K58.1 02/08/2019 Appointment: Ivon Sky [address] [place], [place] [address] ACUTE ILLNESS 02/08/2019 Patient Education: Terrellsouleymane-HC- [employer] Coupon [id number] https://www.MySmartPrice/sampleoptionsXpress/resources/getResource/61/6r64zke0-7843-1480-9d Completed 02/08/2019 Visit Diagnosis Plan: Other fatigue [...] ICD-10 : J02.8 01/19/2019 Visit Diagnosis 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: 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 Discussion: pt/inr [...] ICD-10 : R05 01/19/2019 Appointment: Ivon Sky [address] [place], [place] [id number] ACUTE ILLNESS 01/19/2019 Visit Diagnosis Plan: Otalgia, [...] ICD-10 : R53.83 01/04/2019 Appointment: Ivon Sky [address] [place], [place] [address] ACUTE ILLNESS 01/04/2019 Appointment: Kristine Brambila WPtel: [address] [place] [address] LAB 12/18/2018 Appointment: Kristine Brambila WPtel: [address] [place] [address] ACUTE ILLNESS 12/16/2018 Visit Diagnosis Plan: Anemia, [...] : R53.83 12/03/2018 Appointment: Kristine Brambila WPtel: [address] [place] [address] ACUTE ILLNESS 12/03/2018 Visit Diagnosis Plan: Acute [...] ICD-10 : R59.9 12/02/2018 Appointment: Ivon Sky [address] [place] [address] FOLLOW UP 12/02/2018 Visit Diagnosis 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 instructed to call or rtc with any new or worsening concerns. tylenol prn pain. ICD-9 : 382.00 ICD-10 : H66.002 11/30/2018 Appointment: Ivon SkyImelda [address] ACUTE ILLNESS 11/30/2018 Patient Education: Coumadin- [employer] Coupon [id number] https://www.MySmartPrice/sampleoptionsXpress/resources/getResource/61/[email or web address] Completed 11/30/2018 Appointment: Kristine Brambila WPtel: [address] [place] [address] UA 11/20/2018 Appointment: Kristine Brambila WPtel: [address] [place] [address] [place] INJECTION 11/12/2018 Visit Diagnosis Plan: Streptococcal pharyngitis Discussion: Strep A- positive ASO titer today along with CBC. Rocephin 1 gram. RTC tmrw for another injection. Patient states understanding. ICD-9 : 034.0 ICD-10 : J02.0 11/11/2018 Appointment: Lulu Navarro [address] [place] [address] ACUTE ILLNESS 11/11/2018 Appointment: Kristine Brambila WPtel: [address] [place] [address] ACUTE ILLNESS 10/27/2018 Appointment: Kristine Brambila WPtel: [address] [place] [address] [place] INJECTION 10/09/2018 Visit Diagnosis Plan: Acute recurrent maxillary sinusi tis Discussion: Rocephin 1 gram administered in clinic- patient tolerated well. Continue with supportive treatment at home as well. Tylenol for headache. Salt water gargles and sinus rinses advised. Patient states understanding. ICD-9 : 461.0 ICD-10 : J01.01 10/08/2018 Appointment: Lulu Navarro [address] [place] [address] [place] INJECTION 10/08/2018 Visit Diagnosis Plan: Acute recurrent maxillary sinusi tis Discussion: Rocephin- 1 gram administered in clinic. Patient tolerated well. Sinus rinses encouraged. Rest and fluids. Tylenol or Motrin for pain and fever. FU PRN. Patient states understanding. ICD-9 : 461.0 ICD-10 : J01.01 10/07/2018 Appointment: Lulu Navarro [address] [place] [address] ACUTE ILLNESS 10/07/2018 Visit Diagnosis Plan: Dizziness [...] ICD-10 : R42 09/25/2018 Appointment: Lulu Navarro [address] [place] [address] ACUTE ILLNESS 09/25/2018 Appointment: Kristine Brambila WPtel: [address] [place] [address] UA 09/10/2018 Visit Diagnosis Plan: Furuncle right [...] : R22.1 09/08/2018 Appointment: Kristine Brambila WPtel: [address] [place] [address] ACUTE ILLNESS 09/08/2018 Patient Education: cefdinir- [employer] Coupon [id number] https://www.MySmartPrice/samplemd/resources/getResource/61/[email or web address]-z5 Completed 09/08/2018 Appointment: Kristine Brambila WPtel: [address] [facility] LAB 08/14/2018 Visit Diagnosis Plan: Acute sinusitis, [...] ICD-10 : H92.02 07/23/2018 Appointment: Ivon Sky [address] [place], [place] [address] ACUTE ILLNESS 07/23/2018 Patient Education: cyclobenzaprine- Opti mizeRX Coupon [id number] https://www.MySmartPrice/samplemd/resources/getResource/61/[email or web address]-[email or web address]-xa [email or web address].pdf Completed 07/23/2018 Visit Diagnosis Plan: Streptococcal infe ction, unspecified site Discussion: Randy Dove Sees dentist today t o assess tooth ICD-9 : 041.00 ICD-10 : A49.1 07/08/2018 Appointment: Kristine Brambila WPtel: [facility] FOLLOW UP 07/08/2018 Patient Education: penicillin V potassiu m- [employer] Coupon [id number] https://www.MySmartPrice/samplemd/resources/getResource/61/[email or web address] [email or web address].pdf Completed 07/08/2018 Visit Diagnosis Plan: Localized enlarged [...] ICD-10 : K04.6 07/02/2018 Appointment: Ivon Sky [address] [place] [address] ACUTE ILLNESS 07/02/2018 Appointment: Kristine Brambila WPtel: [address] [place] [address] LAB 06/22/2018 Appointment: Kristine Brambila WPtel: [address] [place] [address] UA 06/17/2018 Visit Diagnosis Plan: Acute sinusitis, unspecified Discussion: dc keflex. start cefdinir daily for 10 days. saline up nares prn congestion. if no improvement after antibiotics or worsening symtpoms, call clinic. ICD-9 : 461.9 ICD-10 : J01.90 06/02/2018 Appointment: Ivon Sky [address] [place] [address] ACUTE ILLNESS 06/02/2018 Appointment: Kristine Brambila WPtel: [address] [place] [address] INJECTION 05/12/2018 Visit Diagnosis Plan: snf (current ) use of 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 Discussion: pt/inr [...] ICD-10 : H70.002 05/11/2018 Appointment: Ivon Sky [address] [place] [address] FOLLOW UP 05/11/2018 Appointment: Kristine Brambila WPtel: [address] [place], [place] [id number] LAB 04/30/2018 Visit Diagnosis Plan: Acute sinusitis, unspecified Discussion: 40 mg kenalog given to patient in office. clindamycin prescribed for patient to take as directed. instructed to stop nasal sprays due to worsening pain/irritation and only use saline rinse up nares for now. call with any new or worsening symptoms. ICD-9 : 461.9 ICD-10 : J01.90 04/02/2018 Appointment: Ivon Sky [address] [place] [address] ACUTE ILLNESS 04/02/2018 Patient Education: Patient Medication Summary Completed 04/02/2018 Appointment: Kristine Brambila WPtel: [address] [place] [address] LAB 03/24/2018 Patient Education: Patient Medication Summary [...] ICD-10 : G43.909 03/16/2018 Appointment: Ivon Sky [address] [place] [address] ACUTE ILLNESS 03/16/2018 Patient Education: Patient Medication Summary Completed 03/16/2018 Appointment: Kristine Brambila WPtel: [facility] LAB 02/24/2018 Patient Education: Patient Medication Summary Completed 02/24/2018 Appointment: Kristine Brambila WPtel: [address] [place] [address] US RESCHEDULED 02/18/2018 Visit Diagnosis Plan: Abdominal distension (gaseous) Discussion: Wanda Restora Rx 1 daily Follow Up: 2 weeks ICD-9 : 787.3 ICD-10 : R14.0 02/16/2018 Visit Diagnosis Plan: Epigastric pain Discussion: Pepcid BID ICD-9 : 789.06 ICD-10 : R10.13 02/16/2018 Visit Diagnosis Plan: Diarrhea, unspecified Discussion: Wanda ICD-9 : 787.91 ICD-10 : R19.7 02/16/2018 Appointment: Kristine Brambila WPtel: [address] [place] [address] ACUTE ILLNESS 02/16/2018 Patient Education: Patient Medication Summary Completed 02/16/2018 Appointment: Kristine Brambila WPtel: [address] [place] [address] [place] INJECTION 02/05/2018 Patient Education: Patient Medication Summary Completed 02/05/2018 Appointment: Kristine Brambila WPtel: [address] [place] [address] [place] INJECTION 01/29/2018 Patient Education: Patient Medication Summary Completed 01/29/2018 Appointment: Kristine Brambila WPtel: [address] [place] [address] [place] INJECTION 01/28/2018 Patient Education: Patient Medication [...] ICD-10 : H66.001 01/26/2018 Appointment: Ivon Sky [address] [place] [address] ACUTE ILLNESS 01/26/2018 Patient Education: Patient Medication [...] ICD-10 : K13.79 01/01/2018 Appointment: Ivon Sky [address] [place] [address] ACUTE ILLNESS 01/01/2018 Patient Education: Patient Medication [...] ICD-10 : G43.909 12/25/2017 Appointment: Ivon Sky [address] [place] [address] ACUTE ILLNESS 12/25/2017 Patient Education: Patient Medication Summary Completed 12/25/2017 Visit Diagnosis Plan: Acute pharyngitis, unspecified Discussion: rapid strep negative. rocephin injection given in office. clindamycin prescribed as well to start tomorrow for 10 days. increase fluid intake. call or rtc next week if new or worsening symptoms. ICD-9 : 462 ICD-10 : J02.9 12/11/2017 Appointment: Ivon Sky [address] [place] [address] ACUTE ILLNESS 12/11/2017 Patient Education: Patient Medication Summary Completed 12/11/2017 Appointment: Kristine Brambila WPtel: [address] [place] [address] LAB 12/01/2017 Patient Education: Patient Medication Summary Completed 12/01/2017 Visit Diagnosis Plan: Encounter for gyne cological examination (general) (routine) without abnormal findings Discussion: Pap done as has a history of choriocarcinoma Had mammogram last month ICD-9 : V72.31 ICD-10 : Z01.419 11/05/2017 Appointment: Kristine Brambila WPtel: [address] [place] [address] Annual Well Visit 11/05/2017 Patient Education: Patient Medication Summary Completed 11/05/2017 Appointment: Kristine Brambila WPtel: [address] [place], [place] [id number] LAB 10/14/2017 Patient Education: Patient Medication Summary Completed 10/14/2017 Care Plan: X-RAY EXAM OF SHOULDER right LOINC : 70990-0 Pending 10/07/2017 Visit Diagnosis Plan: Pain in right shoulder Discussion: xray ordered of right shoulder to rule out fracture. 40 mg kenalog given as one shot to assist with pain. 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 ICD-9 : V58.61 ICD-10 : Z79.01 10/06/2017 Appointment: Ivon Sky [address] ACUTE ILLNESS 10/06/2017 Patient Education: Patient [...] : I73.00 10/01/2017 Appointment: Kristine Brambila WPtel: [address] [place] [address] ACUTE ILLNESS 10/01/2017 Patient Education: Patient Medication [...] ICD-10 : T23.262A 09/10/2017 Appointment: Ivon Sky [address] [place] [address] ACUTE ILLNESS 09/10/2017 Patient Education: Patient Medication Summary Completed 09/10/2017 Appointment: Kristine Brambila WPtel: [address] [place] [address] [place] INJECTION 09/05/2017 Patient Education: Patient Medication Summary Completed 09/05/2017 Appointment: Kristine Brambila WPtel: [address] [place], [place] [id number] [place] LAB 09/04/2017 Patient Education: Patient Medication Summary Completed 09/04/2017 Appointment: Kristine Brambila WPtel: [address] [place], [place] [phone] [place] LAB 08/07/2017 Patient Education: Patient Medication Summary Completed 08/07/2017 Patient Education: Patient Medication Summary Completed 07/21/2017 Care Plan: CHEST X-RAY 2VW FRONTAL&LATL LOINC : 80944-8 Pending 07/21/2017 Visit Diagnosis Plan: Acute upper [...] : K21.9 07/15/2017 Appointment: Ivon Sky 504 [facility] ACUTE ILLNESS 07/15/2017 Patient Education: Patient Medication Summary Completed 07/15/2017 Appointment: Kristine Brambila WPtel: [address] [place], [place] [phone] [place] INJECTION 07/04/2017 Patient Education: Patient Medication Summary Completed 07/04/2017 Appointment: Kristine Brambila WPtel: [address] [place], [place] [phone] [place] INJECTION 07/02/2017 Patient Education: Patient Medication [...] : H66.92 07/01/2017 Appointment: Ivon Sky 504 [facility] ACUTE ILLNESS 07/01/2017 Patient Education: Patient Medication Summary Completed 07/01/2017 Care Plan: US EXAM OF HEAD AND NECK Pending 07/01/2017 Appointment: Kristine Brambila WPtel: [address] [facility] LAB 06/19/2017 Patient Education: Patient Medication Summary [...] : J18.9 05/27/2017 Appointment: Ivon Sky [address] ACUTE ILLNESS 05/27/2017 Patient Education: Patient [...] : G47.00 05/20/2017 Appointment: Ivon Sky 504 [facility] ACUTE ILLNESS 05/20/2017 Patient Education: Patient Medication Summary Completed 05/20/2017 Visit Diagnosis Plan: Headache Discu ssion: Discussed likely Migraine Discussed MRI results Discussed changing acetazolamide to HCTZ ICD-9 : 784.0 ICD-10 : R51 04/22/2017 Visit Diagnosis Plan: Diplopia Discu ssion: Updated dilated eye exam ICD-9 : 368.2 ICD-10 : H53.2 04/22/2017 Appointment: Kristine Brambila WPtel: [address] [place] [address] FOLLOW UP 04/22/2017 Patient Education: Patient Medication Summary Completed 04/22/2017 Appointment: Kristine Brambila WPtel: [address] [place] [address] RESCHEDULED 04/07/2017 Visit Plan: Saline nasal flushes pr n. Tylenol/Motrin prn headache. Notify if persists/symptoms worsening. 04/01/2017 Visit Plan: Saline nasal flushes pr n. Tylenol/Motrin prn headache. Notify if persists/symptoms worsening. 04/01/2017 Visit NOS Plan: Plan Notes: Saline nasal flushes prn. Tyle... 04/01/2017 Visit Diagnosis Plan: Acute sinusitis, unspecified Discussion: Kenalog 40mg IM x1 Decadron/Garamycin Nose Ambrose Mix Has appointment on April 28 with ENT ICD-9 : 461.9 ICD-10 : J01.90 04/01/2017 Appointment: Kristine Brambila WPtel: [address] [place] [address] ACUTE ILLNESS 04/01/2017 Patient Education: Patient Medication Summary Completed 04/01/2017 Referral: Serjio Lugo WPtel: [address] [place] [address] Referral Appointment Requested 03/20/2017 Patient Education: Patient Medication Summary Completed 02/27/2017 Care Plan: CT ABDOMEN W/O DYE abd/pe lvis stone search LOINC : 14597-2 Pending 02/27/2017 Patient Education: Patient Medication Summary Completed 02/12/2017 Care Plan: MRI NECK SPINE W/O DYE LOINC : 68875-8 Pending 02/12/2017 Appointment: Kristine Brambila WPtel: [address] [place] [address] LAB 02/10/2017 Patient Education: Patient Medication Summary [...] : M54.2 02/05/2017 Appointment: Kristine Brambila WPtel: [address] [place] [address] ACUTE ILLNESS 02/05/2017 Patient Education: Patient Medication Summary Completed 02/05/2017 Care Plan: Referral Order SNOMED-CT : [id number] Pending 02/05/2017 Appointment: Kristine Brambila WPtel: [address] [place] [address] THROAT SWAB 02/03/2017 Patient Education: Patient Medication Summary Completed 02/03/2017 Appointment: Kristine Brambila WPtel: [address] [place] [address] 01/13 canceled~sl CANCELED 01/28/2017 Visit Plan: Supportive [...] : J02.8 01/13/2017 Appointment: Kristine Brambila WPtel: [facility] ACUTE ILLNESS 01/13/2017 Patient Education: Patient Medication Summary Completed 01/13/2017 Appointment: Kristine Brambila WPtel: [facility] LAB 12/18/2016 Patient Education: Patient Medication Summary Completed 12/18/2016 Visit Diagnosis Plan: Pain in unspecified joint Discussion: Will retry methotrexate since has worked in past to greatly reduce patient's pain--4 tabs week one then 5 tabs week 2 then 6 tabs weekly and fwup in 6 weeks ICD-9 : 719.49 ICD-10 : M25.50 11/27/2016 Appointment: Kristine Brambila WPtel: [address] [place], [place] [address] 6/ lm~sl / confimed~sl MEDICATION REVIEW 11/27/2016 Patient Education: Patient Medication Summary Completed 11/27/2016 Visit Plan: Supportive care. Rest, Fluids, Tylenol/Motrin prn fever or bodyaches. Notify if worsening symptoms. 08/27/2016 Visit Plan: Supportive care. Rest, Fluids, Tylenol/Motrin prn fever or bodyaches. Notify if worsening symptoms. 08/27/2016 Visit NOS Plan: Plan Notes: Support gauri care. Rest, Fluids... 08/27/2016 Visit Diagnosis Plan: snf (current ) use of 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 Discussion: PT/INR drawn ICD-9 : V58.61 ICD-10 : Z79.01 08/27/2016 Visit Diagnosis Plan: Dysuria Discus steven: Culture urine ICD-9 : 788.1 ICD-10 : R30.0 08/27/2016 Visit Diagnosis Plan: URI, ACUTE Dis cussion: Supportive care ICD-9 : 465.9 ICD-10 : J06.9 08/27/2016 Appointment: Kristine Brambila WPtel: [address] [facility] / confirmed`sl MEDICATION REVIEW 08/27/2016 Patient Education: Patient Medication Summary Completed 08/27/2016 Appointment: Kristine Brambila WPtel: [address] [place], [place] [phone] BP CHECK 07/08/2016 Patient Education: Patient Medication Summary Completed 07/08/2016 Appointment: Kristine Brambila WPtel: [address] [place], [place] [phone] LAB 05/24/2016 Patient Education: Patient Medication Summary Completed 05/24/2016 Appointment: Kristine Brambila WPtel: [address] [place], [place] [phone] 04/24 will not be able to get [...] with culture results 04/23/2016 Appointment: Nayeli Anderson [address] [place], [place] [phone] ACUTE ILLNESS 04/23/2016 Patient Education: Patient Medication [...] abx 04/17/2016 Appointment: Nayeli Anderson [address] ACUTE ILLNESS 04/17/2016 Patient Education: Patient Medication Summary Completed 04/17/2016 Patient Education: [facility] - Saving AutoInj - 18-64 - Dynamic Portal ID Completed 04/17/2016 Appointment: Kristine Brambila WPtel: [address] [place] [address] [place] LAB 04/11/2016 Patient Education: Patient Medication [...] for migraines 03/12/2016 Appointment: Kristine Brambila WPtel: [address] [place] [address] 03/12 confirmed-sp FOLLOW UP 03/12/2016 Patient Education: Patient Medication Summary Completed 03/12/2016 Appointment: Kristine Brambila WPtel: [address] [place] [address] LAB 02/12/2016 Patient Education: Patient Medication Summary Completed 02/12/2016 Appointment: Kristine Brambila WPtel: [address] [place] [address] LAB 02/01/2016 Patient Education: Patient Medication Summary Completed 02/01/2016 Appointment: Kristine Brambila WPtel: [address] [place] [address] LAB 01/22/2016 Patient Education: Patient Medication Summary [...] no improvement 11/10/2015 Appointment: Julee Slater WPtel: [address] [place] [address] ACUTE ILLNESS 11/10/2015 Patient Education: Patient Medication [...] care otherwise 11/09/2015 Appointment: Nayeli Anderson [address] ACUTE ILLNESS 11/09/2015 Patient Education: Patient Medication Summary Completed 11/09/2015 Referral: Maximiliano Neves WPtel: [address] Spoke with Sally at Dr. Ta's offic e. Patient is scheduled for 10/16/15 at 3:15pm. Demographics and notes have been faxed. Patient has been informed. -sp Initi ated 10/16/2015 Visit Plan: Proceed with biopsy/rem oval of right posterior neck node Mammogram ordered--US of right axilla if needed 10/10/2015 Appointment: Kristine Brambila WPtel: [address] 10/08 confirmed ~sl FOLLOW UP 10/10/2015 Patient Education: Patient Medication Summary Completed 10/10/2015 Patient Education: [facility] - Saving AutoInj - 18-64 - Dynamic Portal ID Completed 10/10/2015 Care Plan: MAMMOGRAM SCREENING LOINC : 70227-8 Pending 10/10/2015 Visit Plan: Labs ordered - [...] with Dr Brambila for next week for usp management of pain 10/02/2015 Visit Plan: Labs [...] with Dr Brambila for next week for usp management of pain 10/02/2015 Appointment: Nayeli Anderson [address] [place] [address] ACUTE ILLNESS 10/02/2015 Patient Education: Patient Medication Summary Completed 10/02/2015 Patient Education: [facility] - Saving AutoInj - 18-64 - Dynamic Portal ID Completed 10/02/2015 Care Plan: US EXAM OF HEAD AND NECK Pending 10/02/2015 Appointment: Kristine Brambila WPtel: [address] [place], [place] [address] [place] LAB 09/29/2015 Patient Education: Patient Medication Summary Completed 09/29/2015 Appointment: Kristine Brambila WPtel: [address] [place], [place] [address] [place] LAB 07/27/2015 Patient Education: Patient Medication Summary Completed 07/27/2015 Visit Plan: Trial of Savella Did no t tolerate lyrica Did not tolerate cymbalta 07/10/2015 Appointment: Kristine Brambila WPtel: [address] [place], [place] [phone] 07/10 appt confirmed cn FOLLOW UP 07/10/2015 Patient Education: Patient Medication Summary Completed 07/10/2015 Appointment: Kristine Brambila WPtel: [address] [facility] [facility] 06/30/2015 Patient Education: Patient Medication Summary Completed 06/30/2015 Visit Plan: Recommended Vitamin E o il topically bid to area of scar. Currently taking Amoxicillin for sinusitis. Recommend Flonase nasal spray 06/27/2015 Visit Plan: Recommended Vitamin E o il topically bid to area of scar. Currently taking Amoxicillin for sinusitis. Recommend Flonase nasal spray 06/27/2015 [facility] [phone] [id number] [facility] 06/27/2015 Patient Education: Patient Medication Summary Completed 06/27/2015 App[facility]ment: [facility] [phone] [facility] 06/22/15 appt confirmed and she will dreacharisma garcia new insurance card ACUTE ILLNESS 06/26/2015 Appointment: [facility] [phone] [id number] [facility] 06/21/2015 Patient Education: Patient Medication Summary Completed 06/21/2015 Visit Plan: Add cymbalta at 30mg da loli Repeat PT/INR in 2weeks Recheck 1mo Awaiting ID to reschedule 06/08/2015 Visit Plan: Add cymbalta at 30mg da loli Repeat PT/INR in 2weeks Recheck 1mo Awaiting ID to reschedule 06/08/2015 Appointment: [facility]ambila [facility] [phone] [id number] 06/07 lm ~sl 06/08 confirmed ~sl FOLLOW UP 06/08/2015 Patient Education: Patient Medication Summary Completed 06/08/2015 Patient Education: [facility] - Saving AutoInj - Cymbalta - 18-64 - Dynamic Portal ID Completed 06/08/2015 Patient Education: [facility] - Saving AutoInj - 18-64 - Dynamic Portal ID Completed 06/08/2015 Appointment: [facility] Brambila [facility]el[facility] [phone] [id number] [place]A 05/31/2015 Patient Education: Patient Medication Summary Completed 05/31/2015 Visit Plan: Check PT/INR today Stop ped Lyrica due to fluid retention Has appt. scheduled at [facility] with hematology and infectious disease 06/08 Follow-up appt. in 2 weeks following appt. at . 05/24/2015 Visit Plan: Check PT/INR today Stop ped Lyrica due to fluid retention Has appt. scheduled at [facility] with hematology and infectious disease 06/08 Follow-up appt. in 2 weeks following appt. at . 05/24/2015 App[facility]ment: [facility] [phone] [id number] [place] NEW PATIENT 05/24/2015 Patient Education: Patient Medication Summary Completed 05/24/2015 Patient Education: [facility] - Saving AutoInj - 18-64 - Dynamic Portal ID Completed 05/24/2015 Referral: Annamarie Melo WPtel: [facility] [phone] [id number] Referral Initiated Instructions Comment . Rapid strep [...] tolerate lyrica Did not tolerate cymbalta . Add cymbalta at 30 mg daily Repeat PT/INR in 2weeks Recheck 1mo Awaiting ID to reschedule . Add cymbalta at 30 mg daily Repeat PT/INR in 2weeks Recheck 1mo Awaiting ID to reschedule . Check PT/INR today Stopped Lyrica due to fluid retention Has appt. scheduled at [facility] with hematology and infectious disease 06/08 Follow-up appt. in 2 weeks following appt. at . . Culture collected Infection appears very mild [...] worsening and will add oral abx . Check PT/INR today Stopped Lyrica due to fluid retention Has appt. scheduled at [facility] with hematology and infectious disease 06/08 Follow-up appt. in 2 weeks following appt. at . . Saline nasal flush es prn. Tylenol/Motrin prn headache. Notify if persists/symptoms worsening. . Recommended Vitami n E oil topically bid to area of scar. Currently taking Amoxicillin for sinusitis. Recommend Flonase nasal spray . Labs ordered - per ipheral smear, [...] with Dr Brambila for next week for usp management of pain . Labs ordered - [...] with Dr Brambila for next week for roasterman management of pain . Check CMP, CBC, TS H, PT/INR [...] reviewed Will call with culture results . Recommended Vitami n E oil topically bid to area of scar. Currently taking Amoxicillin for sinusitis. Recommend Flonase nasal spray . Supportive care. Rest, Fluids, Tylenol/Motrin prn [...] worsening, call Friday if no improvement . Supportive care. Rest, Fluids, Tylenol/Motrin prn fever or bodyaches. Notify if worsening symptoms.New toothebrush in 5 days . Proceed with biops y/removal of right posterior neck node Mammogram ordered--US of right axilla if needed . Rocephin 1gm IM no w EBV Antibodies (PT/INR) Same supportive information as yesterday. UC for worsening, call Friday if no improvement . Rocephin 1gm IM no w EBV Antibodies (PT/INR) Same supportive information as yesterday. UC for worsening, call Friday if no improvement
--- OUTSIDE RECORDS SUMMARY | 2020-01-28 13:33 | XMS REPORT | CCD ---
Author Author Heydi Hacth APRN Organization [facility] Address [address] [place] [address] Phone Care Team Providers Care Grants Administrator Name Role Phone Kristine Brambila D.O., PP Unavailable CCM Unavailable Summary Purpose Interface Exchange Insurance Providers Payer name Policy type / Coverage type Covered constitution party ID Effective Begin Date Effective End Date Blue Cross Blue Shield Blue Cross/Bl ue Shield [id number] 2018 Un known Family History Family History data not found Social History Social History Element Codes Description Effective Dates Tobacco history SNOMED CT: 44869959 Current every day smoker 06/08/2015 Allergies, Adverse [...] ICD-9: V58.83 ICD-10: Z51.81 Active 01/21/2016 Unknown Rash and other nonsp ecific skin [...] ICD-9: 786.2 ICD-10: R05 Active 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/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 ICD-9: V58.61 ICD-10: Z79.01 Active 2016 Unknown Other fatigue ICD-9: 780.79 ICD-10: R53.83 [...] 02/10/2017 Unknown Pelvic and perineal pain ICD-9: [id number] ICD-10: R10.2 Active 02/10/2017 Unknown Cervicalgia ICD-9: [...] monitoring ICD-9: V58.83 ICD-10: Z51.81 01/21/2016 Active Rash and other nonsp ecific skin [...] COUGH ICD-9: 786.2 ICD-10: R05 07/21/2017 Active nursing 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 (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 ICD-9: V58.61 ICD-10: Z79.01 2016 Active Other fatigue ICD-9: 780.79 ICD-10: R53.83 [...] 02/10/2017 Active Pelvic and perineal pain ICD-9: [id number] ICD-10: R10.2 02/10/2017 Active Cervicalgia ICD-9: 723.1 [...] mupirocin 2 % topica l cream RxNorm: 520353 1 Application TOP TID 03/08/2019 03/14/2019 Active Vistaril 25 mg capsule RxNorm: 626989 Capsule(s) 1 Capsule(s) PO TID as needed for anxiety 03/02/2019 05/30/2019 Active cyclobenzaprine 10 m g tablet RxNorm: 034897 Tablet(s) 1 TABLET(S) PO QD NEEDED 03/02/2019 08/28/2019 Ac tive hydrocodone 10 mg-ac etaminophen 325 mg tablet RxNorm: 642432 1 Tablet(s) PO Q4-6H as needed for pain 03/02/2019 No Stop Date Active Vitamin D2 50,000 un it capsule RxNorm: 5348728 1 CAPSULE(S) PO QW 02/26/2019 08/24/2019 Active warfarin 5 mg tablet RxNorm: 706550 1 Tablet(s) PO QD 02/17/2019 04/17/2019 Active acetazolamide 125 mg tablet RxNorm: 761990 1 TABLET(S) PO BID 02/15/2019 04/15/2019 Active cholestyramine (with sugar) 4 gram oral powder RxNorm: 431622 1 UNIT DOSE PO QD 02/15/2019 04/15/2019 Ac tive penicillin V potassi um 500 mg tablet RxNorm: 470817 1 Tablet(s) PO BID 02/10/2019 02/09/2019 In active penicillin V potassi um 500 mg tablet RxNorm: 703034 1 Tablet(s) PO BID 02/10/2019 02/16/2019 In active Diflucan 150 mg tablet RxNorm: 834517 TABLET(S) 1 TABLET(S) PO QW NEEDED 02/08/2019 No Stop Date Active Anusol-HC 25 mg rect al suppository RxNorm: 1871502 1 Suppository RTL QD as needed 02/08/2019 03/09/2019 Ac tive hydrocodone 10 mg-ac etaminophen 325 mg tablet RxNorm: 109067 1 Tablet(s) PO Q4-6H as needed for pain 02/01/2019 No Stop Date Active hydrocodone 10 mg-ac etaminophen 325 mg tablet RxNorm: 944939 1 Tablet(s) PO Q4-6H as needed for pain 02/01/2019 03/01/2019 Inactive Diflucan 150 mg tablet RxNorm: 891778 Tablet(s) TABLET(S) 1 TABLET(S) PO QW NEEDED 01/28/2019 No Stop Date Active Vistaril 25 mg capsule RxNorm: 031577 1 Capsule(s) PO TID 01/27/2019 07/25/2019 Active ProAir HFA 90 mcg/ac tuation aerosol inhaler RxNorm: 784954 2 Puff(s) INH Q4H as needed 01/20/2019 No Stop Date Active Tessalon Perles 100 mg capsule RxNorm: 877501 1 Capsule(s) PO TID a s needed for cough 01/20/2019 No Stop Date Active doxycycline hyclate 100 mg capsule RxNorm: 3523633 1 Capsule(s) PO BID 01/20/2019 01/19/2019 In active doxycycline hyclate 100 mg capsule RxNorm: 6720613 1 Capsule(s) PO BID 01/20/2019 01/26/2019 In active Coumadin 5 mg tablet RxNorm: 193764 1 Tablet(s) PO QD (on Mon, , Fri, , Fri and Sun) 01/05/2019 06/09/2019 Active Generic For:COUMADIN 5MG TAB 05/25/2018 3:20:45 PM N O T I C E Last quantity doesn't match original quantity amoxicillin 500 mg c apsule RxNorm: 565602 1 Capsule(s) PO BID 01/05/2019 01/14/2019 Inactive amoxicillin 500 mg c apsule RxNorm: 397658 1 Capsule(s) PO BID 01/05/2019 01/04/2019 Inactive hydrocodone 10 mg-ac etaminophen 325 mg tablet RxNorm: 709969 1 Tablet(s) PO Q4-6H as needed for pain 01/01/2019 01/31/2019 Inactive Coumadin 5 mg tablet RxNorm: 183024 Tablet(s) TAKE 1 TABLET(S) BY MOUTH FRI, FRI, FRI, Friday12/23/2018 01/04/2019 Inactive Generic For:COUMADIN 5MG TA B 05/25/2018 3:20:45 PM N O T I C E Last quantity doesn't match original quantity Diflucan 150 mg tablet RxNorm: 771558 Tablet(s) TABLET(S) 1 TABLET(S) PO QW NEEDED 12/23/2018 01/27/2019 Inactive cyclobenzaprine 10 m g tablet RxNorm: 127950 1 TABLET(S) PO QD NEEDED 12/23/2018 03/01/2019 In active Vitamin D2 50,000 un it capsule RxNorm: 7106685 1 Capsule(s) PO QW 12/04/2018 02/25/2019 Inactive Medrol (Juan Francisco) 4 mg ta blets in a dose pack RxNorm: 972869 Tablet(s) PO as direc liane 12/04/2018 12/03/2018 In active Vitamin D2 50,000 un it capsule RxNorm: 8349223 1 Capsule(s) PO QW 12/04/2018 12/03/2018 Inactive Medrol (Juan Francisco) 4 mg ta blets in a dose pack RxNorm: 378268 Tablet(s) PO as direc liane 12/04/2018 01/19/2019 In active Zithromax Z-Juan Francisco 250 mg tablet RxNorm: 035899 Tablet(s) PO take as directed 12/02/2018 02/16/2019 In active Coumadin 5 mg tablet RxNorm: 235256 Tablet(s) TAKE 1 TABLET(S) BY MOUTH FRI, FRI, FRI, Friday11/30/2018 12/22/2018 Inactive Generic For:COUMADIN 5MG TA B 05/25/2018 3:20:45 PM N O T I C E Last quantity doesn't match original quantity Vistaril 25 mg capsule RxNorm: 611640 Capsule(s) 1 Capsule(s) PO TID as needed for anxiety 11/30/2018 02/27/2019 Inactive Diflucan 150 mg tablet RxNorm: 392590 Tablet(s) TABLET(S) 1 TABLET(S) PO QW NEEDED 11/26/2018 12/22/2018 Inactive cholestyramine (with sugar) 4 gram oral powder RxNorm: 257366 1 UNIT DOSE PO QD 11/24/2018 02/14/2019 In active acetazolamide 125 mg tablet RxNorm: 213160 1 Tablet(s) PO BID 11/24/2018 02/14/2019 Inactive cyclobenzaprine 10 m g tablet RxNorm: 069789 1 Tablet(s) PO QD as needed 11/17/2018 12/22/2018 In active hydrocodone 10 mg-ac etaminophen 325 mg tablet RxNorm: 018341 1 Tablet(s) PO Q4-6H as needed for pain 11/05/2018 01/31/2019 Inactive acetazolamide 125 mg tablet RxNorm: 806002 1 TABLET(S) PO BID 10/26/2018 11/23/2018 Inactive cholestyramine (with sugar) 4 gram oral powder RxNorm: 424438 1 UNIT DOSE PO QD 10/26/2018 11/23/2018 In active Coumadin 5 mg tablet RxNorm: 691168 TAKE 1 TABLET(S) BY MOUTH FRI, FRI, FRI, Friday10/26/2018 11/29/2018 Inactive Generic For:COUMADIN 5MG TAB 05/25/2018 3:20:45 PM N O T I C E Last quantity doesn't match original quantity Diflucan 150 mg tablet RxNorm: 137159 TABLET(S) 1 TABLET(S) PO QW NEEDED 10/26/2018 11/25/2018 In active hydrocodone 10 mg-ac etaminophen 325 mg tablet RxNorm: 011475 1 Tablet(s) PO Q4-6H as needed for pain 10/08/2018 11/04/2018 Inactive acetazolamide 125 mg tablet RxNorm: 157341 1 Tablet(s) PO BID 09/24/2018 10/23/2018 Inactive Coumadin 5 mg tablet RxNorm: 671230 TAKE 1 TABLET(S) BY MOUTH MON, FRI, FRI, Friday09/24/2018 10/25/2018 Inactive Generic For:COUMADIN 5MG TAB 05/25/2018 3:20:45 PM N O T I C E Last quantity doesn't match original quantity Diflucan 150 mg tablet RxNorm: 413389 Tablet(s) 1 Tablet(s) PO QW as needed 09/24/2018 10/25/2018 In active cyclobenzaprine 10 m g tablet RxNorm: 585451 1 Tablet(s) PO QD as needed 09/24/2018 11/16/2018 In active Vistaril 25 mg capsule RxNorm: 448683 1 Capsule(s) PO TID as needed for anxiet y 09/24/2018 11/29/2018 In active cholestyramine (with sugar) 4 gram oral powder RxNorm: 349027 1 Unit Dose PO QD 09/24/2018 10/23/2018 In active Pyridium 200 mg tablet RxNorm: 7042072 1 Tablet(s) PO TID 09/10/2018 09/19/2018 Inactive Pyridium 200 mg tablet RxNorm: 7067174 1 Tablet(s) PO TID 09/10/2018 09/09/2018 Inactive hydrocodone 10 mg-ac etaminophen 325 mg tablet RxNorm: 773967 1 Tablet(s) PO Q4-6H as needed for pain 09/08/2018 10/07/2018 Inactive cefdinir 300 mg capsule RxNorm: 878616 1 Capsule(s) PO BID 09/08/2018 09/21/2018 Inactive hydrocodone 10 mg-ac etaminophen 325 mg tablet RxNorm: 820740 1 Tablet(s) PO Q4-6H as needed for pain 08/13/2018 09/07/2018 Inactive cyclobenzaprine 10 m g tablet RxNorm: 858134 1 Tablet(s) PO QD as needed 07/23/2018 09/23/2018 In active Diflucan 150 mg tablet RxNorm: 957998 Tablet(s) 1 Tablet(s) PO QW as needed 07/23/2018 09/23/2018 In active Ciprodex 0.3 %-0.1 % ear drops,suspension RxNorm: 131386 4 Drop(s) left otic ( ear) BID 07/23/2018 07/29/2018 Inactive hydrocodone 10 mg-ac etaminophen 325 mg tablet RxNorm: 822848 1 Tablet(s) PO Q4-6H as needed for pain 07/16/2018 08/12/2018 Inactive penicillin V potassi um 500 mg tablet RxNorm: 560524 1 Tablet(s) PO Q6H 07/08/2018 07/17/2018 In active cyclobenzaprine 10 m g tablet RxNorm: 266015 1 Tablet(s) PO QD as needed 06/22/2018 07/22/2018 In active Vistaril 25 mg capsule RxNorm: 511177 1 Capsule(s) PO TID as needed for anxiet y 06/22/2018 09/23/2018 In active cholestyramine (with sugar) 4 gram oral powder RxNorm: 404387 1 Unit Dose PO QD 06/22/2018 09/23/2018 In active hydrocodone 10 mg-ac etaminophen 325 mg tablet RxNorm: 788698 1 Tablet(s) PO Q4-6H as needed for pain 06/17/2018 07/15/2018 Inactive cefdinir 300 mg capsule RxNorm: 642892 1 Capsule(s) PO BID 06/02/2018 06/11/2018 Inactive Diflucan 150 mg tablet RxNorm: 866972 Tablet(s) 1 Tablet(s) PO QW as needed 06/02/2018 07/22/2018 In active Coumadin 5 mg tablet RxNorm: 042080 TAKE 1 TABLET(S) BY MOUTH FRI, FRI, FRI, Friday05/25/2018 07/15/2018 Inactive Generic For:COUMADIN 5MG TAB 05/25/2018 3:20:45 PM N O T I C E Last quantity doesn't match original quantity Imitrex 50 mg tablet RxNorm: 280142 Tablet(s) 1 Tablet(s) PO at headache. re peat in 2 hours if no relief. no more than 2 tabs per day 05/19/2018 No Stop Date Active cholestyramine (with sugar) 4 gram oral powder RxNorm: 108806 1 Unit Dose PO QD 05/19/2018 11/14/2018 In active Vistaril 25 mg capsule RxNorm: 975185 1 Capsule(s) PO TID 05/19/2018 11/14/2018 Inactive Coumadin 5 mg tablet RxNorm: 764732 Tablet(s) TAKE 1 TABLET(S) BY MOUTH FRI, FRI, FRI, Friday05/19/2018 05/24/2018 Inactive Generic For:COUMADIN 5MG TA B N O T I C E Last quantity doesn't match original quantity acetazolamide 125 mg tablet RxNorm: 599436 1 Tablet(s) PO BID 05/19/2018 09/23/2018 Inactive cyclobenzaprine 10 m g tablet RxNorm: 476419 1 Tablet(s) PO QD as needed 05/19/2018 11/17/2018 In active Coumadin 7.5 mg tablet RxNorm: 565964 1 Tablet(s) PO QD , , 05/19/2018 01/04/2019 In active ketorolac 10 mg tablet RxNorm: 188864 1 Tablet(s) PO QHS as needed 05/11/2018 No Stop Date Active promethazine 12.5 mg tablet RxNorm: 845304 1 Tablet(s) PO Q6H as needed 04/23/2018 04/22/2018 In active acetazolamide 125 mg tablet RxNorm: 367330 1 Tablet(s) PO BID 04/23/2018 05/18/2018 Inactive Coumadin 5 mg tablet RxNorm: 933380 TAKE 1 TABLET(S) BY MOUTH FRI, FRI, FRI, Friday04/23/2018 05/18/2018 Inactive Generic For:COUMADIN 5MG TAB N O T I C E Last quantity doesn't match original quantity Imitrex 50 mg tablet RxNorm: 808216 1 Tablet(s) PO at headache. repeat in 2 hours if no relief. no more than 2 tabs per day 04/23/2018 05/18/2018 Inactive cyclobenzaprine 10 m g tablet RxNorm: 334844 1 Tablet(s) PO QD as needed 04/23/2018 05/18/2018 In active clindamycin HCl 300 mg capsule RxNorm: 171661 1 Capsule(s) PO TID 04/02/2018 04/11/2018 Inactive hydrocodone 10 mg-ac etaminophen 325 mg tablet RxNorm: 849555 1 Tablet(s) PO Q4-6H as needed for pain 03/24/2018 06/16/2018 Inactive promethazine 12.5 mg tablet RxNorm: 328531 1 Tablet(s) PO Q6H 03/23/2018 04/23/2018 Inactive Imitrex 50 mg tablet RxNorm: 088008 1 Tablet(s) PO at headache. repeat in 2 hours if no relief. no more than 2 tabs per day 03/23/2018 04/22/2018 Inactive Diflucan 150 mg tablet RxNorm: 115734 1 Tablet(s) PO QW as needed 03/23/2018 06/01/2018 Inactive Coumadin 5 mg tablet RxNorm: 670545 Tablet(s) 1 Tablet(s) PO Mon, Wed, Fri, Sun 03/23/2018 04/22/2018 In active Imitrex 100 mg tablet RxNorm: 147530 Tablet(s) PO take one tablet at sign of headache and repeat in 2 hours if ineffective 03/16/2018 04/01/2018 Inactive ondansetron HCl 4 mg tablet RxNorm: 658232 1 Tablet(s) PO Q4H as needed for nausea 02/24/2018 04/01/2018 In active hydrocodone 10 mg-ac etaminophen 325 mg tablet RxNorm: 673250 1 Tablet(s) PO Q4-6H as needed for pain 02/24/2018 03/23/2018 Inactive Coumadin 5 mg tablet RxNorm: 619280 Tablet(s) 1 Tablet(s) PO Mon, Wed, Fri, Sun 02/20/2018 03/22/2018 In active promethazine 12.5 mg tablet RxNorm: 915020 1 Tablet(s) PO Q6H 02/20/2018 03/22/2018 Inactive Pepcid 40 mg tablet RxNorm: 434985 1 Tablet(s) PO BID for stomach 02/16/2018 03/17/2018 In active Flagyl 500 mg tablet RxNorm: 755679 1 Tablet(s) PO TID 02/16/2018 02/25/2018 Inactive Imitrex 50 mg tablet RxNorm: 487626 1 Tablet(s) PO at headache. repeat in 2 hours if no relief. no more than 2 tabs per day 01/27/2018 03/15/2018 Inactive Coumadin 5 mg tablet RxNorm: 864348 1 Tablet(s) PO Mon, Wed, Fri, Sun 01/27/2018 02/20/2018 In active amoxicillin 875 mg t ablet RxNorm: 791270 1 Tablet(s) PO BID 01/26/2018 02/04/2018 Inactive Imitrex 50 mg tablet RxNorm: 314843 1 Tablet(s) PO at headache. repeat in 2 hours if no relief. no more than 2 tabs per day 01/26/2018 03/22/2018 Inactive cyclobenzaprine 10 m g tablet RxNorm: 574740 1 Tablet(s) PO QD as needed 01/23/2018 03/23/2018 In active promethazine 12.5 mg tablet RxNorm: 319095 1 Tablet(s) PO Q6H 01/23/2018 02/19/2018 Inactive Diflucan 150 mg tablet RxNorm: 400927 1 Tablet(s) PO QW as needed 01/22/2018 03/22/2018 Inactive acetazolamide 125 mg tablet RxNorm: 148808 1 Tablet(s) PO BID 01/22/2018 04/21/2018 Inactive Imitrex 50 mg tablet RxNorm: 075841 1 Tablet(s) PO at headache. repeat in 2 hours if no relief. no more than 2 tabs per day 01/02/2018 01/25/2018 Inactive Ciprodex 0.3 %-0.1 % ear drops,suspension RxNorm: 946743 4 Drop(s) otic (ear) BID 01/01/2018 01/07/2018 In active Coumadin 7.5 mg tablet RxNorm: 809038 1 Tablet(s) PO QD , Th, 12/29/2017 05/18/2018 In active Coumadin 5 mg tablet RxNorm: 701004 1 Tablet(s) PO Mon, Wed, Fri, Sun 12/29/2017 01/26/2018 In active cyclobenzaprine 10 m g tablet RxNorm: 079593 1 Tablet(s) PO QD as needed 12/29/2017 01/22/2018 In active clindamycin HCl 300 mg capsule RxNorm: 712659 1 Capsule(s) PO TID 12/26/2017 12/25/2017 Inactive Imitrex 50 mg tablet RxNorm: 019203 1 Tablet(s) PO at headache. repeat in 2 hours if no relief. no more than 2 tabs per day 12/26/2017 01/01/2018 Inactive clindamycin HCl 300 mg capsule RxNorm: 141933 1 Capsule(s) PO TID 12/26/2017 01/04/2018 Inactive Zithromax Z-Juan Francisco 250 mg tablet RxNorm: 081481 Tablet(s) PO take as directed 12/25/2017 12/25/2017 In active promethazine 12.5 mg tablet RxNorm: 037913 1 Tablet(s) PO Q6H 12/25/2017 01/22/2018 Inactive clindamycin HCl 300 mg capsule RxNorm: 188944 1 Capsule(s) PO TID 12/11/2017 12/17/2017 Inactive Vistaril 25 mg capsule RxNorm: 380179 1 Capsule(s) PO TID as needed for anxiet y 12/04/2017 05/18/2018 In active cholestyramine (with sugar) 4 gram oral powder RxNorm: 162351 1 Unit Dose PO QD 12/04/2017 05/18/2018 In active Coumadin 7.5 mg tablet RxNorm: 060357 1 Tablet(s) PO QD 12/04/2017 12/28/2017 Inactive Coumadin 5 mg tablet RxNorm: 058537 1 Tablet(s) PO Friday through Friday12/04/2017 12/28/2017 In active hydrocodone 10 mg-ac etaminophen 325 mg tablet RxNorm: 473639 1 Tablet(s) PO Q4-6H as needed for pain 12/01/2017 02/23/2018 Inactive hydrocodone 10 mg-ac etaminophen 325 mg tablet RxNorm: 711335 1 Tablet(s) PO Q4-6H as needed for pain 11/03/2017 11/30/2017 Inactive cyclobenzaprine 10 m g tablet RxNorm: 461128 1 Tablet(s) PO QD as needed 10/30/2017 12/28/2017 In active cholestyramine (with sugar) 4 gram oral powder RxNorm: 525565 1 Unit Dose PO QD 10/30/2017 11/28/2017 In active amoxicillin 875 mg t ablet RxNorm: 186119 1 Tablet(s) PO BID 10/08/2017 10/07/2017 Inactive amoxicillin 875 mg t ablet RxNorm: 359596 1 Tablet(s) PO BID 10/08/2017 10/17/2017 Inactive penicillin V potassi um 500 mg tablet RxNorm: 855515 1 Tablet(s) PO BID 10/06/2017 10/07/2017 In active hydrocodone 10 mg-ac etaminophen 325 mg tablet RxNorm: 535225 1 Tablet(s) PO Q4-6H as needed for pain 10/06/2017 11/02/2017 Inactive hydrocodone 10 mg-ac etaminophen 325 mg tablet RxNorm: 948525 1 Tablet(s) PO Q4-6H as needed for pain 10/06/2017 12/31/2018 Inactive Vigamox 0.5 % eye drops RxNorm: 253226 1 Drop(s) ophthalmic (eye) TID ONLY ADMI NISTER IF INFECTION 10/03/2017 10/02/2017 Inactive Vigamox 0.5 % eye drops RxNorm: 320003 1 Drop(s) ophthalmic (eye) TID ONLY ADMI NISTER IF INFECTION 10/03/2017 10/09/2017 Inactive cholestyramine (with sugar) 4 gram oral powder RxNorm: 188763 1 Unit Dose PO QD 09/23/2017 10/30/2017 In active acetazolamide 125 mg tablet RxNorm: 705390 1 Tablet(s) PO BID 09/23/2017 12/21/2017 Inactive Coumadin 5 mg tablet RxNorm: 468238 1 Tablet(s) PO QD FRIDAY THROUGH Friday09/17/2017 11/04/2017 In active mupirocin 2 % topica l ointment RxNorm: 166538 1 Application TOP TID 09/10/2017 11/04/2017 Inactive hydrocodone 10 mg-ac etaminophen 325 mg tablet RxNorm: 418390 1 Tablet(s) PO Q4-6H as needed for pain 09/08/2017 10/05/2017 Inactive Questran 4 gram powd er for susp in a packet RxNorm: 887621 MIX ONE PACKET IN 6 O UNCES OF APPLE SAUCE OR OTHER SOFT FOOD AND EAT ONCE DAILY 09/02/2017 11/04/2017 Inactive Diflucan 150 mg tablet RxNorm: 839447 1 Tablet(s) PO QW as needed 08/14/2017 01/21/2018 Inactive hydrocodone 10 mg-ac etaminophen 325 mg tablet RxNorm: 165324 1 Tablet(s) PO Q4-6H as needed for pain 08/11/2017 09/07/2017 Inactive Tamiflu 75 mg capsule RxNorm: 280220 1 Capsule(s) PO QD 08/11/2017 08/10/2017 Inactive Tamiflu 75 mg capsule RxNorm: 120639 1 Capsule(s) PO QD 08/11/2017 08/20/2017 Inactive Coumadin 5 mg tablet RxNorm: 412433 1 Tablet(s) PO QD FRIDAY THROUGH Friday07/22/2017 09/16/2017 In active Coumadin 5 mg tablet RxNorm: 633530 TAKE ONE TABLET BY MOUTH ONCE DAILY THROUGH Friday07/16/2017 07/21/2017 Inactive cyclobenzaprine 10 m g tablet RxNorm: 265475 1 Tablet(s) PO QD as needed 07/15/2017 10/30/2017 In active hydrocodone 10 mg-ac etaminophen 325 mg tablet RxNorm: 680589 1 Tablet(s) PO Q4-6H as needed for pain 07/14/2017 08/10/2017 Inactive warfarin 5 mg tablet RxNorm: 865312 1 Tablet(s) PO Fri Sat Sun-patie nt is due for PT/INR 06/18/2017 02/16/2019 Inactive Questran Light 4 gra m powder for susp in a packet RxNorm: 1222181 1 PO QD 06/18/2017 11/04/2017 In active cyclobenzaprine 10 m g tablet RxNorm: 657734 1 Tablet(s) PO QD as needed 06/18/2017 07/14/2017 In active hydrocodone 10 mg-ac etaminophen 325 mg tablet RxNorm: 075652 1 Tablet(s) PO Q4-6H as needed for pain 06/18/2017 07/13/2017 Inactive Lunesta 1 mg tablet RxNorm: 371505 1 Tablet(s) PO QHS as needed 05/27/2017 06/25/2017 Inactive Zithromax Z-Juan Francisco 250 mg tablet RxNorm: 350269 1 Tablet(s) PO Take a s directed 05/27/2017 11/04/2017 In active ProAir HFA 90 mcg/ac tuation aerosol inhaler RxNorm: 459793 2 Puff(s) INH Q4H 05/27/2017 01/19/2019 In active ProAir HFA 90 mcg/ac tuation aerosol inhaler RxNorm: 735309 2 Puff(s) INH Q4H 05/27/2017 05/26/2017 In active promethazine 6.25 mg -codeine 10 mg/5 mL syrup RxNorm: 294130 5 Milliliter(s) PO Q4 H as needed 05/27/2017 11/04/2017 Inactive Diflucan 150 mg tablet RxNorm: 335857 1 Tablet(s) PO QW as needed 05/26/2017 05/25/2017 Inactive cyclobenzaprine 10 m g tablet RxNorm: 099646 1 Tablet(s) PO QD as needed 05/20/2017 06/18/2017 In active Lunesta 2 mg tablet RxNorm: 058819 1 Tablet(s) PO QHS 05/20/2017 05/27/2017 Inactive Zithromax Z-Juan Francisco 250 mg tablet RxNorm: 886963 Tablet(s) PO As Direc liane 05/12/2017 05/19/2017 In active cyclobenzaprine 5 mg tablet RxNorm: 216601 1 Tablet(s) PO QPM 03/28/2017 05/19/2017 Inactive Vistaril 25 mg capsule RxNorm: 843280 1 Capsule(s) PO TID as needed for anxiet y 03/28/2017 09/23/2017 In active Questran 4 gram powd er for susp in a packet RxNorm: 534210 1 Unit(s) PO QD 03/06/2017 06/18/2017 In active Cipro 500 mg tablet RxNorm: 785481 1 Tablet(s) PO BID 02/27/2017 02/26/2017 Inactive Pyridium 200 mg tablet RxNorm: 7809996 1 Tablet(s) PO TID for bladder spasms 02/27/2017 03/31/2017 In active Cipro 500 mg tablet RxNorm: 228331 1 Tablet(s) PO BID 02/27/2017 03/05/2017 Inactive Levsin 0.125 mg tablet RxNorm: 6201977 1 Tablet(s) PO QID as needed for spasm 02/25/2017 11/04/2017 In active tamsulosin 0.4 mg ca psule RxNorm: 992208 1 Capsule(s) PO QPM 02/25/2017 03/26/2017 Inactive tamsulosin 0.4 mg ca psule RxNorm: 227813 1 Capsule(s) PO QPM 02/25/2017 02/24/2017 Inactive Pyridium 100 mg tablet RxNorm: 2670715 1 Tablet(s) PO TID as needed 02/21/2017 03/31/2017 In active acetazolamide 125 mg tablet RxNorm: 581565 1 Tablet(s) PO BID 02/07/2017 09/23/2017 Inactive Questran 4 gram powd er for susp in a packet RxNorm: 750568 1 Unit(s) PO QD 02/06/2017 03/06/2017 In active cyclobenzaprine 5 mg tablet RxNorm: 018809 1 Tablet(s) PO QPM 02/05/2017 03/27/2017 Inactive BuSpar 5 mg tablet RxNorm: 116324 1 Tablet(s) PO BID 02/03/2017 03/31/2017 Inactive Diflucan 150 mg tablet RxNorm: 956062 1 Tablet(s) PO QW as needed 01/15/2017 05/26/2017 Inactive Valtrex 1 gram tablet RxNorm: 333324 1 Tablet(s) PO TID 01/13/2017 01/19/2017 Inactive Vistaril 25 mg capsule RxNorm: 476792 1 Capsule(s) PO TID as needed for anxiet y 01/13/2017 03/27/2017 In active hydrocodone 10 mg-ac etaminophen 325 mg tablet RxNorm: 548040 1 Tablet(s) PO Q4-6H as needed for pain 01/13/2017 06/17/2017 Inactive Questran 4 gram powd er for susp in a packet RxNorm: 789978 1 Unit(s) PO QD 01/13/2017 09/23/2017 In active acetazolamide 125 mg tablet RxNorm: 557329 1 Tablet(s) PO BID 01/13/2017 02/06/2017 Inactive methotrexate (PF) 20 mg/0.4 mL subcutaneous auto-injector RxNorm: 7564156 Milliliter(s) SQ QW 12/26/2016 01/05/2017 Inactive Compazine 10 mg tablet RxNorm: 404290 1 Tablet(s) PO TID as needed for nausea 12/18/2016 11/04/2017 In active hydrocodone 10 mg-ac etaminophen 325 mg tablet RxNorm: 313590 1 Tablet(s) PO Q4-6H as needed for pain 12/17/2016 01/12/2017 Inactive Questran 4 gram powd er for susp in a packet RxNorm: 542052 1 Unit(s) PO QD 12/17/2016 01/13/2017 In active cyclobenzaprine 5 mg tablet RxNorm: 798519 1 Tablet(s) PO QPM 12/17/2016 02/05/2017 Inactive Questran Light 4 gra m powder for susp in a packet RxNorm: 5885997 1 PO QD 11/29/2016 06/17/2017 In active Zofran ODT 4 mg disi ntegrating tablet RxNorm: 530800 1 Tablet(s) PO Q4H as needed for nausea 11/29/2016 12/17/2016 Inactive methotrexate sodium 2.5 mg tablet RxNorm: 996674 4 Tablet(s) PO week 1 then 5 tablets po week 2 then 6 tablets weekly 11/27/2016 12/25/2016 Inactive warfarin 7.5 mg tablet RxNorm: 556795 1 Tablet(s) PO three times weekly 11/14/2016 03/31/2017 In active warfarin 7.5 mg tablet RxNorm: 741909 1 Tablet(s) PO three times weekly 11/13/2016 11/13/2016 In active Diflucan 150 mg tablet RxNorm: 730987 1 Tablet(s) PO QW as needed 11/05/2016 01/14/2017 Inactive Vistaril 25 mg capsule RxNorm: 215871 1 Capsule(s) PO TID as needed for anxiet y 11/04/2016 11/03/2016 In active Coumadin 5 mg tablet RxNorm: 007337 1 Tablet(s) PO Friday through Friday11/04/2016 06/18/2017 In active acetazolamide 125 mg tablet RxNorm: 569527 1 Tablet(s) PO BID 11/04/2016 01/13/2017 Inactive sumatriptan 100 mg t ablet RxNorm: 960084 1 Tablet(s) PO at hea dache onset. May repeat in 2 hours if headache remains 11/04/2016 11/04/2017 Inactive Vistaril 25 mg capsule RxNorm: 221853 1 Capsule(s) PO TID as needed for anxiet y 11/04/2016 01/12/2017 In active hydrocodone 10 mg-ac etaminophen 325 mg tablet RxNorm: 302089 1 Tablet(s) PO Q4-6H as needed for pain 11/04/2016 12/16/2016 Inactive Coumadin 5 mg tablet RxNorm: 658757 TAKE ONE TABLET BY MOUTH ON FRI., MON., WED., AND FRI., AND TAKE ONE AND ONE-HALF TABLETS TUE., THUR., AND 10/16/2016 10/25/2016 In active Coumadin 5 mg tablet RxNorm: 099000 1 Tablet(s) PO Friday through Friday10/15/2016 11/03/2016 In active hydrocodone 10 mg-ac etaminophen 325 mg tablet RxNorm: 406426 1 Tablet(s) PO Q4-6H as needed for pain 10/14/2016 11/03/2016 Inactive hydrocodone 10 mg-ac etaminophen 325 mg tablet RxNorm: 073480 1 Tablet(s) PO Q4-6H as needed for pain 09/20/2016 10/13/2016 Inactive warfarin 7.5 mg tablet RxNorm: 966915 1 Tablet(s) PO three times weekly 09/20/2016 11/12/2016 In active Diflucan 150 mg tablet RxNorm: 340451 1 Tablet(s) PO QW as needed 08/20/2016 11/04/2016 Inactive acetazolamide 125 mg tablet RxNorm: 503049 1 Tablet(s) PO BID 08/20/2016 11/04/2016 Inactive Diflucan 150 mg tablet RxNorm: 601477 1 Tablet(s) PO QW as needed 08/20/2016 08/19/2016 Inactive Vistaril 25 mg capsule RxNorm: 353141 Capsule(s) TAKE ONE CAPSULE BY MOUTH THR EE TIMES DAILY NEEDED FOR ANXIETY 08/19/2016 11/04/2016 Inactive hydrocodone 10 mg-ac etaminophen 325 mg tablet RxNorm: 366072 1 Tablet(s) PO Q4-6H as needed for pain 08/05/2016 09/19/2016 Inactive Diflucan 150 mg tablet RxNorm: 658886 1 Tablet(s) PO QW as needed 07/19/2016 08/19/2016 Inactive tizanidine 4 mg tablet RxNorm: 748822 1-2 Tablet(s) PO QHS as needed for muscl e spasm and sleep 06/03/2016 06/10/2016 Inactive Questran Light 4 gra m powder for susp in a packet RxNorm: 8720896 1 PO QD 05/14/2016 08/11/2016 In active Macrobid 100 mg capsule RxNorm: 634392 1 Capsule(s) PO BID 04/23/2016 05/02/2016 Inactive mupirocin 2 % topica l ointment RxNorm: 324880 Apply topically to af fected area 2-3 times daily 04/17/2016 07/07/2016 Inactive Vistaril 25 mg capsule RxNorm: 764120 TAKE ONE CAPSULE BY MOUTH THREE TIMES DA LOLI NEEDED FOR ANXIETY 04/17/2016 11/04/2016 Inactive Diflucan 150 mg tablet RxNorm: 726589 1 Tablet(s) PO QW as needed 04/16/2016 07/18/2016 Inactive cyclobenzaprine 5 mg tablet RxNorm: 144570 TAKE ONE TABLET BY [facility] ONCE DAILY IN THE EVENING 03/25/2016 12/17/2016 Inactive Pyridium 100 mg tablet RxNorm: 4396555 1 Tablet(s) PO TID as needed 03/20/2016 03/19/2016 In active Diflucan 150 mg tablet RxNorm: 418492 1 Tablet(s) PO QW as needed 03/20/2016 04/15/2016 Inactive Pyridium 100 mg tablet RxNorm: 1104453 1 Tablet(s) PO TID as needed 03/20/2016 08/26/2016 In active Diflucan 150 mg tablet RxNorm: 061799 1 Tablet(s) PO QW as needed 03/19/2016 03/19/2016 Inactive Coumadin 7.5 mg tablet RxNorm: 909653 1 Tablet(s) PO QD 03/14/2016 05/12/2016 Inactive acetazolamide 125 mg tablet RxNorm: 877555 1 Tablet(s) PO BID 02/28/2016 08/20/2016 Inactive Coumadin 5 mg tablet RxNorm: 532828 1 TABLET(S) PO QD THREE TIMES A WEEK AND 1 1/2 TAB (7.5MG) FOUR TIMES A WEEK 02/28/2016 03/13/2016 Inactive Questran Light 4 gra m powder for susp in a packet RxNorm: 3377776 1 PO QD 02/13/2016 05/12/2016 In active Diflucan 150 mg tablet RxNorm: 675529 1 Tablet(s) PO QW as needed 01/19/2016 03/11/2016 Inactive Diflucan 150 mg tablet RxNorm: 095126 1 Tablet(s) PO QW as needed 01/18/2016 01/18/2016 Inactive promethazine 25 mg t ablet RxNorm: 808452 1 Tablet(s) PO Q4H as needed for nausea 12/05/2015 12/17/2016 In active Imitrex 100 mg tablet RxNorm: 431742 1 Tablet(s) PO at headache onset and may repeat in 2 hours if needed 12/05/2015 03/31/2017 Inactive Diflucan 150 mg tablet RxNorm: 225708 1 Tablet(s) PO QW as needed 11/24/2015 01/17/2016 Inactive Diflucan 150 mg tablet RxNorm: 866895 1 Tablet(s) PO QW as needed 11/21/2015 11/23/2015 Inactive Coumadin 5 mg tablet RxNorm: 097079 1 Tablet(s) PO QD three times a week and 1 1/2 tab (7.5mg) four times a week 11/13/2015 02/01/2016 Inactive Questran Light 4 gra m powder for susp in a packet RxNorm: 202178 1 PO QD 11/13/2015 02/10/2016 In active acetazolamide 125 mg tablet RxNorm: 790081 1 Tablet(s) PO BID 11/13/2015 02/10/2016 Inactive amoxicillin 875 mg t ablet RxNorm: 082264 1 Tablet(s) PO BID 11/09/2015 11/18/2015 Inactive Coumadin 7.5 mg tablet RxNorm: 818247 1 Tablet(s) PO on and 10/26/2015 10/25/2015 In active Coumadin 7.5 mg tablet RxNorm: 957452 1 Tablet(s) PO on and 10/26/2015 11/12/2015 In active Coumadin 5 mg tablet RxNorm: 482606 1 Tablet(s) PO Friday, Friday, Friday and Friday. 1.5 tablets Friday, and Friday. 10/26/2015 10/25/2015 Inactive Coumadin 5 mg tablet RxNorm: 868829 1 Tablet(s) PO Friday, Friday, Friday , and Friday. Take 1 1/2 on Friday, and Friday10/26/2015 11/12/2015 Inactive Coumadin 7.5 mg tablet RxNorm: 645535 1 Tablet(s) PO on and 10/26/2015 10/26/2015 In active Coumadin 5 mg tablet RxNorm: 335685 1 Tablet(s) PO Friday, Friday, Friday and Friday. 1.5 tablets Friday, and Friday. 10/26/2015 02/14/2016 Inactive Vistaril 25 mg capsule RxNorm: 262379 1 Capsule(s) PO TID as needed for anxiet y 10/10/2015 04/06/2016 In active cyclobenzaprine 5 mg tablet RxNorm: 047182 1 Tablet(s) PO QPM 10/10/2015 03/24/2016 Inactive Vistaril 25 mg capsule RxNorm: 062997 1 Capsule(s) PO TID as needed for anxiet y 10/10/2015 10/09/2015 In active cyclobenzaprine 5 mg tablet RxNorm: 542240 1 Tablet(s) PO QPM 10/10/2015 10/09/2015 Inactive Coumadin 5 mg tablet RxNorm: 858046 1 Tablet(s) PO Friday, Friday, Friday and Friday. 1.5 tablets Friday, and Friday. 10/02/2015 10/01/2015 Inactive Coumadin 5 mg tablet RxNorm: 777722 1 Tablet(s) PO Friday, Friday, Friday and Friday. 1.5 tablets Friday, and Friday. 10/02/2015 10/25/2015 Inactive amoxicillin 500 mg t ablet RxNorm: 909124 1 Tablet(s) PO TID 10/02/2015 10/11/2015 Inactive hydrocodone 10 mg-ac etaminophen 325 mg tablet RxNorm: 130713 1 Tablet(s) PO Q4-6H as needed for pain 10/02/2015 08/04/2016 Inactive Diflucan 150 mg tablet RxNorm: 138968 1 Tablet(s) PO QW as needed 10/02/2015 10/01/2015 Inactive amoxicillin 500 mg t ablet RxNorm: 210847 1 Tablet(s) PO TID 10/02/2015 10/01/2015 Inactive Diflucan 150 mg tablet RxNorm: 717539 1 Tablet(s) PO QW as needed 10/02/2015 10/09/2015 Inactive Coumadin 5 mg tablet RxNorm: 498903 1 Tablet(s) PO Mon.,Fri.,Fri., Sat. and Sun. 09/14/2015 10/01/2015 Inactive acetazolamide 125 mg tablet RxNorm: 258362 1 Tablet(s) PO BID 09/14/2015 11/12/2015 Inactive hydrocodone 10 mg-ac etaminophen 325 mg tablet RxNorm: 828839 1 Tablet(s) PO Q4-6H as needed for pain 09/01/2015 10/01/2015 Inactive Vistaril 25 mg capsule RxNorm: 068343 1 Capsule(s) PO TID as needed for anxiet y 08/24/2015 09/22/2015 In active baclofen 10 mg tablet RxNorm: 994116 1/2 Tablet(s) PO QAM and 1 tablet at bed time 07/27/2015 10/09/2015 Inactive Vistaril 25 mg capsule RxNorm: 518725 1 Capsule(s) PO BID 07/24/2015 08/22/2015 Inactive Savella 12.5 mg (5)- 25 mg(8)-50mg(42) tablets in a dose pack RxNorm: 460788 Tablet(s) PO as directed 07/10/2015 07/26/2015 Inactive hydrocodone 10 mg-ac etaminophen 325 mg tablet RxNorm: 152267 1 Tablet(s) PO Q6H as needed for pain 06/29/2015 08/10/2015 Inactive Coumadin 7.5 mg tablet RxNorm: 648951 1 Tablet(s) PO on and 06/21/2015 10/25/2015 In active Vistaril 25 mg capsule RxNorm: 663226 1 Capsule(s) PO BID 06/20/2015 07/24/2015 Inactive Cymbalta 30 mg capsu le,delayed release RxNorm: 006250 1 Capsule(s) PO QD 06/08/2015 07/09/2015 In active Coumadin 5 mg tablet RxNorm: 234735 1 Tablet(s) PO Mon.,Wed.,Fri., Sat. and Sun. 06/08/2015 07/07/2015 Inactive Coumadin 5 mg tablet RxNorm: 822890 1 Tablet(s) PO Mon.,Wed.,Fri., Sat. and Sun. 05/24/2015 06/07/2015 Inactive Coumadin 7.5 mg tablet RxNorm: 814973 1 Tablet(s) PO on and 05/24/2015 06/20/2015 In active Coumadin 7.5 mg tablet RxNorm: 309342 1 Tablet(s) PO on Friday No Start Date Active Vitamin B12 1000mcg Tablet RxNorm: 1/2 Tablet(s) PO QD No Start Date Active Bystolic 10 mg tablet RxNorm: 490289 3 Tablet(s) PO QAM No Start Date Active Vitamin D3 5,000 uni t tablet RxNorm: 309715 1 Tablet(s) PO QD No Start Date Active Bystolic 5 mg tablet RxNorm: 336218 1 Tablet(s) PO NOON No Start Date Active sumatriptan 100 mg t ablet RxNorm: 661775 1 Tablet(s) PO at hea dache onset. May repeat in 2 hours if headache remains No Start Date 11/03/2016 Inactive warfarin 7.5 mg tablet RxNorm: 045449 1 Tablet(s) PO three times weekly No Start Date 09/19/2016 Inactive ondansetron HCl 4 mg tablet RxNorm: 950629 1 Tablet(s) PO Q4H as needed for nausea No Start Date 02/23/2018 Inactive Imitrex 100 mg tablet RxNorm: 515089 1 Tablet(s) PO at headache onset and may repeat in 2 hours if needed No Start Date 12/04/2015 Inactive Vitamin B12 1000mcg Tablet RxNorm: 1/2 Tablet(s) PO on , hur, Sat and Sun and 1 tab all other days No Start Date 04/01/2018 Inactive warfarin 5 mg tablet RxNorm: 936294 1 Tablet(s) PO QD No Start Date 02/16/2019 Inactive baclofen 10 mg tablet RxNorm: 506732 1/2 Tablet(s) PO QAM and 1 tablet at bed time No Start Date 07/26/2015 Inactive tizanidine 4 mg tablet RxNorm: 242898 1-2 Tablet(s) PO QHS as needed for muscl e spasm and sleep No Start Date 06/02/2016 Inactive Flexeril 5 mg tablet RxNorm: 331860 1 Tablet(s) PO QD No Start Date 10/09/2015 Inactive methotrexate (PF) 20 mg/0.4 mL subcutaneous auto-injector RxNorm: 0167571 SQ QW No Start Date 12/25/2016 Inactive Bystolic 5 mg tablet RxNorm: 814720 1 Tablet(s) PO as needed No Start Date 03/15/2018 Inactive Questran Light 4 gra m powder for susp in a packet RxNorm: 252645 1 PO QD No Start Date 11/12/2015 Inactive Bystolic 10 mg tablet RxNorm: 321907 1 Tablet(s) PO QAM No Start Date 11/04/2017 Inactive warfarin 5 mg tablet RxNorm: 609952 1 Tablet(s) PO Fri Sun No Start Date 06/17/2017 Inactive hydrocodone 10 mg-ac etaminophen 325 mg tablet RxNorm: 140574 1 Tablet(s) PO 4-6hou rs as needed for pain No Start Date 08/31/2015 Inactive cyclobenzaprine 5 mg tablet RxNorm: 596016 1 Tablet(s) PO QPM No Start Date 12/16/2016 Inactive Lovenox 100 mg/mL carmona bcutaneous syringe RxNorm: 703976 1 Milliliter(s) SQ QD No Start Date 06/07/2015 Inactive Levsin 0.125 mg tablet RxNorm: 3892521 1 Tablet(s) PO QID as needed for spasm No Start Date 02/24/2017 Inactive Savella 12.5 mg (5)- 25 mg(8)-50mg(42) tablets in a dose pack RxNorm: 881593 Tablet(s) PO as directed No Start Date 07/09/2015 Inactive Coumadin 10 mg tablet RxNorm: 233018 1 Tablet(s) PO QD No Start Date 2015 Inactive tramadol 50 mg tablet RxNorm: 930849 1 Tablet(s) PO TID as needed for pain No Start Date 03/31/2017 Inactive BuSpar 5 mg tablet RxNorm: 905992 1 Tablet(s) PO BID No Start Date 02/02/2017 Inactive Vistaril 25 mg capsule RxNorm: 327183 1 Capsule(s) PO BID No Start Date 06/19/2015 Inactive Tessalon Perles 100 mg capsule RxNorm: 774887 1 Capsule(s) PO TID a s needed for cough No Start Date 01/19/2019 Inactive promethazine 12.5 mg tablet RxNorm: 475612 1 Tablet(s) PO Q6H as needed No Start Date 04/22/2018 Inactive Coumadin 7.5 mg tablet RxNorm: 916837 1 Tablet(s) PO Fri and Friday No Start Date 03/13/2016 Inactive Imitrex 50 mg tablet RxNorm: 281032 1 Tablet(s) PO at headache. repeat in 2 hours if no relief. no more than 2 tabs per day No Start Date 12/25/2017 Inactive acetazolamide 125 mg tablet RxNorm: 179882 1 Tablet(s) PO BID No Start Date 09/13/2015 Inactive methotrexate (PF) 12 .5 mg/0.4 mL subcutaneous auto-injector RxNorm: 8638501 1 Milliliter(s) SQ QW No Start Date 03/31/2017 Inactive Bystolic 10 mg tablet RxNorm: 408998 1 Tablet(s) PO QAM No Start Date 03/25/2018 Inactive Zithromax Z-Juan Francisco 250 mg tablet RxNorm: 470488 Tablet(s) PO As Direc liane No Start Date 05/11/2017 Inactive Bystolic 20 mg tablet RxNorm: 514869 1 Tablet(s) PO QD No Start Date 03/15/2018 Inactive Questran 4 gram powd er for susp in a packet RxNorm: 756524 1 Unit(s) PO QD No Start Date 12/16/2016 Inactive Vitamin D3 1,000 uni t tablet RxNorm: 045507 1 Tablet(s) PO QD No Start Date 04/01/2018 Inactive Coumadin 5 mg tablet RxNorm: 224408 1 Tablet(s) PO Friday through Friday No Start Date 03/13/2016 Inactive warfarin 5 mg tablet RxNorm: 178313 1 Tablet(s) PO four days per week No Start Date 04/01/2018 Inactive ProAir HFA 90 mcg/ac tuation aerosol inhaler RxNorm: 164790 2 Puff(s) INH Q4H as needed No Start Date 01/19/2019 Inactive Bystolic 5 mg tablet RxNorm: 707801 1 Tablet(s) PO QHS No Start Date 03/25/2018 Inactive Compazine 10 mg tablet RxNorm: 279066 1 Tablet(s) PO TID as needed for nausea No Start Date 12/17/2016 Inactive Pyridium 200 mg tablet RxNorm: 0181288 1 Tablet(s) PO TID for bladder spasms No Start Date 02/26/2017 Inactive hydrocodone 10 mg-ac etaminophen 325 mg tablet RxNorm: 812855 1 Tablet(s) PO as nee ded No Start Date 06/28/2015 Inactive warfarin 7.5 mg tablet RxNorm: 265330 1 Tablet(s) PO on Friday and No Start Date 04/01/2018 Inactive promethazine 25 mg t ablet RxNorm: 996353 1 Tablet(s) PO Q4H as needed for nausea No Start Date 12/04/2015 Inactive Lovenox 30 mg/0.3 mL subcutaneous syringe RxNorm: 702352 1 Milliliter(s) SQ QD No Start Date 06/07/2015 Inactive Vitamin B12 1000mcg Tablet RxNorm: 1/2 Tablet(s) PO QD No Start Date 12/02/2017 Inactive Vitamin B12 1000mcg Tablet RxNorm: 1 Tablet(s) PO M// QD No Start Date 12/02/2017 Inactive Medication Administered No Medication Administered data Immunizations Vaccine Codes Date Status Influenza CVX: 141 03/24 completed Assessments Condition Codes Effectiv e Dates Radiculopathy, site unspecified ICD- 10: M54.10 ICD-9: 724.4 02/17/2019 Epistaxis ICD-10: R04.0 ICD-9: 784.7 02/17/2019 Encounter for therapeutic drug level monitoring ICD-10: Z51.81 ICD-9: V58.83 02/17/2019 Irritable bowel syndrome with constipation ICD-10: K58.1 ICD-9: 564.1 02/08/2019 Low back pain ICD-10: M54.5 ICD-9: 724.2 02/08/2019 Unspecified urinary incontinence ICD -10: R32 ICD-9: 788.30 02/08/2019 Other fatigue ICD-10: R53.83 ICD-9: 780.79 01/19/2019 COUGH ICD-10: R05 ICD-9: 786.2 01/19/2019 nursing home (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 ICD-10: Z79.01 ICD-9: V58.61 01/19/2019 Abnormal levels of other serum enzymes [...] and perineal pain ICD-10: R10 .2 ICD-9: UTQ9954 02/10/2017 Hematuria, unspecified ICD-10: R31.9 ICD-9: 599.70 [...] Visit Reason For Visit Effective Dates Notes paresthesia 02/17/2019 flank pain 02/08/2019 le ft [...] UA for hydrocodone monitoring cellulitis 06/27/2015 tayo mckenzie had cellulitis from removal of PICC line which has now resolved. There now appears to be a foreign body embedded in location where PICC was placed lab draw 06/21/2015 follow up 06/08/2015 Serena LUCERO follow up 05/31/2015 jay pugh has history of intestitial cystitis ~generic 05/24/2015 Esta blishing care Results Observation Observation Code Item Item Code Result Date PT 9045646 PT 23.5 Seconds 03/08/2019 PT [id number] INR 2.0 03/08/2019 ANTI STREPTOLYSIN O TITER(ASO) 07820 ASO Titr 110 IU/mL 9 MYCOPLASMA ANTIBODY, IFA [id number] Mycoplas Ab IgG 1:64 01/20/2019 MYCOPLASMA ANTIBODY, IFA 67100C4 Mycoplas Ab IgM <1:10 01/20/2019 MYCOPLASMA ANTIBODY, IFA 70995P0 Mycoplasma Intp See Below 01/20/2019 LEGIONELLA [id number] Legio adore Ab <1:128 01/20/2019 HEPATIC FUNCTION PANEL A 81470 Total Protein 6.3 g/dL 01/19/2019 HEPATIC FUNCTION PANEL A 89179 AST 16 U/L 01/19/2019 HEPATIC FUNCTION PANEL A 32663 ALK PHOS 52 U/L 01/19/2019 HEPATIC FUNCTION PANEL A 32271 Bili Total 0.2 mg/dL 01/19/2019 HEPATIC FUNCTION PANEL A 37255 ALT 20 U/L 01/19/2019 HEPATIC FUNCTION PANEL A 77197 ALBUMIN 4.3 g/dL 01/19/2019 HEPATIC FUNCTION PANEL A 38419 Bili Direct 0.1 mg/dL 01/19/2019 PT 8370618 PT 27.5 Seconds 01/19/2019 PT 1660854 INR 2.6 01/19/2019 COMPLETE BLOOD COUNT 0542806 WBC 11.1 10e9/L 01/19/2019 COMPLETE BLOOD COUNT 1200108 RBC 4.14 10e12/L 9 COMPLETE BLOOD COUNT 8086766 HEMOGLOBIN 13.9 g/dL 01/19/2019 COMPLETE BLOOD COUNT 4696879 HEMATOCRIT 40.7 % 01/19/2019 COMPLETE BLOOD COUNT 6890694 MCV 98.3 fL 01/19/2019 COMPLETE BLOOD COUNT 4481893 MCH 33.6 pg 01/19/2019 COMPLETE BLOOD COUNT 4175722 MCHC 34.2 g/dL 01/19/2019 COMPLETE BLOOD COUNT 0928624 PLATELET COUNT 334 10e9/L 01/19/2019 COMPLETE BLOOD COUNT 0276181 Mean Plt Volume 8.9 fL 01/19/2019 COMPLETE BLOOD COUNT 0846505 Neut Auto 60.2 % 01/19/2019 COMPLETE BLOOD COUNT 8720665 Lymph Auto 32.5 % 01/19/2019 COMPLETE BLOOD COUNT 1409311 Lucas Auto 6.1 % 01/19/2019 COMPLETE BLOOD COUNT 0029133 RDW 12.5 % 01/19/2019 COMPLETE BLOOD COUNT 6041735 Eos Auto 1.0 % 01/19/2019 COMPLETE BLOOD COUNT 0384997 Baso Auto 0.2 % 01/19/2019 COMPLETE BLOOD COUNT 3025367 Neutrophil Abs 6.68 10e9/L 01/19/2019 COMPLETE BLOOD COUNT 3810796 Lymphocyte Abs 3.61 10e9/L 01/19/2019 COMPLETE BLOOD COUNT 4572385 Monocyte Abs 0.68 10e9/L 01/19/2019 COMPLETE BLOOD COUNT 7168816 Eosinophil Abs 0.11 10e9/L 01/19/2019 COMPLETE BLOOD COUNT 6152173 RDW-SD 43.4 fL 01/19/2019 COMPLETE BLOOD COUNT 2053811 Basophil Abs 0.02 10e9/L 01/19/2019 COMPLETE BLOOD COUNT 7586924 WBC 7.4 10e9/L 12/18/2018 COMPLETE BLOOD COUNT 3789942 RBC 4.32 10e12/L 9 COMPLETE BLOOD COUNT 2440047 HEMOGLOBIN 14.2 g/dL 12/18/2018 COMPLETE BLOOD COUNT 2851064 HEMATOCRIT 42.0 % 12/18/2018 COMPLETE BLOOD COUNT 0220269 MCV 97.2 fL 12/18/2018 COMPLETE BLOOD COUNT 1325614 MCH 32.9 pg 12/18/2018 COMPLETE BLOOD COUNT 7742085 MCHC 33.8 g/dL 12/18/2018 COMPLETE BLOOD COUNT 4853957 PLATELET COUNT 273 10e9/L 12/18/2018 COMPLETE BLOOD COUNT 3690926 Mean Plt Volume 9.4 fL 12/18/2018 COMPLETE BLOOD COUNT 1307989 Neut Auto 57.7 % 12/18/2018 COMPLETE BLOOD COUNT 8660827 Lymph Auto 34.8 % 12/18/2018 COMPLETE BLOOD COUNT 7987351 Lucas Auto 6.4 % 12/18/2018 COMPLETE BLOOD COUNT 8047899 RDW 12.6 % 12/18/2018 COMPLETE BLOOD COUNT 6786509 Eos Auto 0.8 % 12/18/2018 COMPLETE BLOOD COUNT 1709951 Baso Auto 0.3 % 12/18/2018 COMPLETE BLOOD COUNT 3377950 Neutrophil Abs 4.27 10e9/L 12/18/2018 COMPLETE BLOOD COUNT 3689603 Lymphocyte Abs 2.58 10e9/L 12/18/2018 COMPLETE BLOOD COUNT 9132332 Monocyte Abs 0.47 10e9/L 12/18/2018 COMPLETE BLOOD COUNT 8926979 Eosinophil Abs 0.06 10e9/L 12/18/2018 COMPLETE BLOOD COUNT 0937378 RDW-SD 43.8 fL 12/18/2018 COMPLETE BLOOD COUNT 6801517 Basophil Abs 0.02 10e9/L 12/18/2018 GFR CALC 3341590 GFR Non Afr Amr >60 mL/min 12/18/2018 GFR CALC 8902414 GFR Afr Amr >60 mL/min 12/18/2018 COMPREHENSIVE METABOLIC 78625 AST 33 U/L 12/18/2018 COMPREHENSIVE METABOLIC 31089 ALT 60 U/L 12/18/2018 COMPREHENSIVE METABOLIC 97704 BUN 9 mg/dL 12/18/2018 COMPREHENSIVE METABOLIC 22643 ALBUMIN 4.3 g/dL 12/18/2018 COMPREHENSIVE METABOLIC 10298 CHLORIDE 104 mmol/L 12/18/2018 COMPREHENSIVE METABOLIC 63997 Bili Total 0.3 mg/dL 12/18/2018 COMPREHENSIVE METABOLIC 04767 ALK PHOS 63 U/L 12/18/2018 COMPREHENSIVE METABOLIC 14431 SODIUM 139 mmol/L 12/18/2018 COMPREHENSIVE METABOLIC 47986 CREATININE 0.55 mg/dL 12/18/2018 COMPREHENSIVE METABOLIC 57744 CALCIUM 9.0 mg/dL 12/18/2018 COMPREHENSIVE METABOLIC 87324 POTASSIUM 3.9 mmol/L 12/18/2018 COMPREHENSIVE METABOLIC 72144 Total Protein 6.4 g/dL 12/18/2018 COMPREHENSIVE METABOLIC 59920 Glucose 83 mg/dL 12/18/2018 COMPREHENSIVE METABOLIC 12785 Bicarbonate 27 mmol/L 12/18/2018 COMPREHENSIVE METABOLIC 50861 AGAP 8 mmol/L 12/18/2018 ERYTHROCYTE SEDIMENTATION RATE 69454 Sed Rate 17 mm/hr 12/04/2018 MEAN GLUC 5930917 Calc M zach Gluc 108 mg/dL 12/03/2018 VITAMIN B 12 09221 VITAM IN B12 329 pg/mL 12/03/2018 COMPREHENSIVE METABOLIC 43864 AST 18 U/L 12/03/2018 COMPREHENSIVE METABOLIC 14039 ALT 21 U/L 12/03/2018 COMPREHENSIVE METABOLIC 36171 BUN 11 mg/dL 12/03/2018 COMPREHENSIVE METABOLIC 55590 ALBUMIN 4.5 g/dL 12/03/2018 COMPREHENSIVE METABOLIC 88334 CHLORIDE 106 mmol/L 12/03/2018 COMPREHENSIVE METABOLIC 94344 Bili Total 0.4 mg/dL 12/03/2018 COMPREHENSIVE METABOLIC 88599 ALK PHOS 49 U/L 12/03/2018 COMPREHENSIVE METABOLIC 34127 SODIUM 138 mmol/L 12/03/2018 COMPREHENSIVE METABOLIC 91630 CREATININE 0.61 mg/dL 12/03/2018 COMPREHENSIVE METABOLIC 74248 CALCIUM 9.2 mg/dL 12/03/2018 COMPREHENSIVE METABOLIC 59051 POTASSIUM 3.7 mmol/L 12/03/2018 COMPREHENSIVE METABOLIC 67910 Total Protein 6.8 g/dL 12/03/2018 COMPREHENSIVE METABOLIC 23279 Glucose 94 mg/dL 12/03/2018 COMPREHENSIVE METABOLIC 46041 Bicarbonate 25 mmol/L 12/03/2018 COMPREHENSIVE METABOLIC 65068 AGAP 7 mmol/L 12/03/2018 FREE T4 38915 T4 Free 0.96 ng/dL 12/03/2018 ASSAY TRIIODOTHYRONINE (T3) 85162 T3 Total 1.02 ng/mL 12/03/2018 GFR CALC 1028992 GFR Non Afr Amr >60 mL/min 12/03/2018 GFR CALC 3865451 GFR Afr Amr >60 mL/min 12/03/2018 GLYCOSYLATED HEMOGLOBIN TEST 49145 Hgb A1c 80930-3 5.4 % 12/03/2018 VITAMIN D TOTAL (25 HYDROXY) 87397 Vitamin D 25 OH 11.1 ng/mL 12/03/2018 IRON 53615 Iron 106 ug/dL 12/03/2018 THYROID STIMULATING HORMONE 58800 TSH 0.978 uIU/mL 9 COMPLETE BLOOD COUNT 0359536 WBC 9.4 10e9/L 12/03/2018 COMPLETE BLOOD COUNT 2038844 RBC 4.41 10e12/L 9 COMPLETE BLOOD COUNT 2463560 HEMOGLOBIN 14.5 g/dL 12/03/2018 COMPLETE BLOOD COUNT 6367556 HEMATOCRIT 43.0 % 12/03/2018 COMPLETE BLOOD COUNT 5885351 MCV 97.5 fL 12/03/2018 COMPLETE BLOOD COUNT 0037745 MCH 32.9 pg 12/03/2018 COMPLETE BLOOD COUNT 2381868 MCHC 33.7 g/dL 12/03/2018 COMPLETE BLOOD COUNT 7105862 PLATELET COUNT 336 10e9/L 12/03/2018 COMPLETE BLOOD COUNT 3739331 Mean Plt Volume 9.1 fL 12/03/2018 COMPLETE BLOOD COUNT 1013275 Neut Auto 56.4 % 12/03/2018 COMPLETE BLOOD COUNT 0575140 Lymph Auto 35.6 % 12/03/2018 COMPLETE BLOOD COUNT 2758684 Lucas Auto 6.8 % 12/03/2018 COMPLETE BLOOD COUNT 6806777 RDW 12.6 % 12/03/2018 COMPLETE BLOOD COUNT 1592464 Eos Auto 1.0 % 12/03/2018 COMPLETE BLOOD COUNT 8408227 Baso Auto 0.2 % 12/03/2018 COMPLETE BLOOD COUNT 5675748 Neutrophil Abs 5.30 10e9/L 12/03/2018 COMPLETE BLOOD COUNT 4551225 Lymphocyte Abs 3.35 10e9/L 12/03/2018 COMPLETE BLOOD COUNT 8094626 Monocyte Abs 0.64 10e9/L 12/03/2018 COMPLETE BLOOD COUNT 8727361 Eosinophil Abs 0.09 10e9/L 12/03/2018 COMPLETE BLOOD COUNT 6568699 RDW-SD 44.3 fL 12/03/2018 COMPLETE BLOOD COUNT 4083083 Basophil Abs 0.02 10e9/L 12/03/2018 FERRITIN 16242 FERRITIN 87.8 ng/mL 12/03/2018 PT 4746616 PT 23.1 Seconds 11/30/2018 PT 2020779 INR 2.0 11/30/2018 ANTI STREPTOLYSIN O TITER(ASO) 42485 ASO Titr 117 IU/mL 9 COMPLETE BLOOD COUNT 8503784 WBC 10.7 10e9/L 11/11/2018 COMPLETE BLOOD COUNT 9673723 RBC 4.42 10e12/L 9 COMPLETE BLOOD COUNT 7499707 HEMOGLOBIN 14.5 g/dL 11/11/2018 COMPLETE BLOOD COUNT 8626198 HEMATOCRIT 43.1 % 11/11/2018 COMPLETE BLOOD COUNT 0886200 MCV 97.5 fL 11/11/2018 COMPLETE BLOOD COUNT 2520298 MCH 32.8 pg 11/11/2018 COMPLETE BLOOD COUNT 2454281 MCHC 33.6 g/dL 11/11/2018 COMPLETE BLOOD COUNT 4538785 PLATELET COUNT 324 10e9/L 11/11/2018 COMPLETE BLOOD COUNT 7675016 Mean Plt Volume 9.2 fL 11/11/2018 COMPLETE BLOOD COUNT 3684435 Neut Auto 62.3 % 11/11/2018 COMPLETE BLOOD COUNT 6419103 Lymph Auto 30.8 % 11/11/2018 COMPLETE BLOOD COUNT 0083333 Lucas Auto 6.1 % 11/11/2018 COMPLETE BLOOD COUNT 1304262 RDW 12.7 % 11/11/2018 COMPLETE BLOOD COUNT 9560707 Eos Auto 0.7 % 11/11/2018 COMPLETE BLOOD COUNT 5840360 Baso Auto 0.1 % 11/11/2018 COMPLETE BLOOD COUNT [id number] Neutrophil Abs 6.67 10e9/L 11/11/2018 COMPLETE BLOOD COUNT [id number] Lymphocyte Abs 3.30 10e9/L 11/11/2018 COMPLETE BLOOD COUNT [id number] Monocyte Abs 0.65 10e9/L 11/11/2018 COMPLETE BLOOD COUNT [id number] Eosinophil Abs 0.07 10e9/L 11/11/2018 COMPLETE BLOOD COUNT [id number] RDW-SD 44.3 fL 11/11/2018 COMPLETE BLOOD COUNT [id number] Basophil Abs 0.01 10e9/L 11/11/2018 PT 2530351 PT 23.4 Seconds 10/27/2018 PT [id number] INR 2.0 10/27/2018 COMPLETE BLOOD COUNT 6271671 WBC 8.1 10e9/L 09/25/2018 COMPLETE BLOOD COUNT [id number] RBC 4.37 10e12/L 9 COMPLETE BLOOD COUNT 1579508 HEMOGLOBIN 14.5 g/dL 09/25/2018 COMPLETE BLOOD COUNT 7224017 HEMATOCRIT 42.1 % 09/25/2018 COMPLETE BLOOD COUNT [id number] MCV 96.3 fL 09/25/2018 COMPLETE BLOOD COUNT 6478958 MCH 33.2 pg 09/25/2018 COMPLETE BLOOD COUNT 0916115 MCHC 34.4 g/dL 09/25/2018 COMPLETE BLOOD COUNT [id number] PLATELET COUNT 313 10e9/L 09/25/2018 COMPLETE BLOOD COUNT 1986014 Mean Plt Volume 9.2 fL 09/25/2018 COMPLETE BLOOD COUNT 0964800 Neut Auto 57.4 % 09/25/2018 COMPLETE BLOOD COUNT 5736131 Lymph Auto 35.0 % 09/25/2018 COMPLETE BLOOD COUNT 0986341 Lucas Auto 6.3 % 09/25/2018 COMPLETE BLOOD COUNT 3010100 RDW 12.6 % 09/25/2018 COMPLETE BLOOD COUNT 1802679 Eos Auto 1.1 % 09/25/2018 COMPLETE BLOOD COUNT 3189841 Baso Auto 0.2 % 09/25/2018 COMPLETE BLOOD COUNT 9888384 Neutrophil Abs 4.65 10e9/L 09/25/2018 COMPLETE BLOOD COUNT 3891394 Lymphocyte Abs 2.84 10e9/L 09/25/2018 COMPLETE BLOOD COUNT 2490552 Monocyte Abs 0.51 10e9/L 09/25/2018 COMPLETE BLOOD COUNT 0710381 Eosinophil Abs 0.09 10e9/L 09/25/2018 COMPLETE BLOOD COUNT 4765245 RDW-SD 43.0 fL 09/25/2018 COMPLETE BLOOD COUNT [id number] Basophil Abs 0.02 10e9/L 09/25/2018 COMPREHENSIVE METABOLIC 55750 AST 15 U/L 09/25/2018 COMPREHENSIVE METABOLIC 56150 ALT 20 U/L 09/25/2018 COMPREHENSIVE METABOLIC 04810 BUN 9 mg/dL 09/25/2018 COMPREHENSIVE METABOLIC 19260 ALBUMIN 4.3 g/dL 09/25/2018 COMPREHENSIVE METABOLIC 65830 CHLORIDE 107 mmol/L 09/25/2018 COMPREHENSIVE METABOLIC 82924 Bili Total 0.4 mg/dL 09/25/2018 COMPREHENSIVE METABOLIC 44964 ALK PHOS 51 U/L 09/25/2018 COMPREHENSIVE METABOLIC 97490 SODIUM 139 mmol/L 09/25/2018 COMPREHENSIVE METABOLIC 89927 CREATININE 0.61 mg/dL 09/25/2018 COMPREHENSIVE METABOLIC 86128 CALCIUM 9.1 mg/dL 09/25/2018 COMPREHENSIVE METABOLIC 23119 POTASSIUM 3.7 mmol/L 09/25/2018 COMPREHENSIVE METABOLIC 99752 Total Protein 6.3 g/dL 09/25/2018 COMPREHENSIVE METABOLIC 28161 Glucose 92 mg/dL 09/25/2018 COMPREHENSIVE METABOLIC 45674 Bicarbonate 24 mmol/L 09/25/2018 COMPREHENSIVE METABOLIC 29544 AGAP 8 mmol/L 09/25/2018 PT 9445841 PT 25.0 Seconds 09/25/2018 PT 9696743 INR 2.2 09/25/2018 GFR CALC 3804760 GFR Non Afr Amr >60 mL/min 09/25/2018 GFR CALC 7202781 GFR Afr Amr >60 mL/min 09/25/2018 PT 4291859 PT 25.7 Seconds 05/12/2018 PT 4128276 INR 2.3 05/12/2018 PT 2827243 PT TNP:Improper Specimen 04/30/2018 PT [id number] INR TNP:Improper Specimen 04/30/2018 PT 9911597 PT 26.3 Seconds 02/05/2018 PT 5379348 INR 2.4 02/05/2018 ANTI STREPTOLYSIN O TITER(ASO) 82440 ASO Titr 118 IU/mL 8 VITAMIN B 12 06162 VITAM IN B12 302 pg/mL 12/02/2017 VITAMIN D TOTAL (25 HYDROXY) 71407 Vitamin D 25 OH 27.0 ng/mL 12/02/2017 PT 7131930 PT 17.3 Seconds 12/01/2017 PT 0049492 INR 1.4 12/01/2017 ANTI STREPTOLYSIN O TITER(ASO) 06636 ASO Titr 127 IU/mL 8 ANTI STREPTOLYSIN O TITER(ASO) 03240 ASO Titr 130 IU/mL 8 ANTINUCLEAR ANTIBODY SCREEN 07296 MAGALIE Ab Scr <1:80 10/02/2017 RA FACTOR 97188 RA FACTOR <20 IU/mL 10/02/2017 RA FACTOR 22181 RA Facto r Intp Negative 10/02/2017 VITAMIN D TOTAL (25 HYDROXY) 85125 Vitamin D 25 OH 18 ng/mL 8 IRON 04290 Iron 70 ug/dL 10/01/2017 VITAMIN B 12 41756 VITAM IN B12 377 pg/mL 10/01/2017 FREE T4 70515 T4 Free 1.31 ng/dL 10/01/2017 URIC ACID 77380 URIC ACID 3.9 mg/dL 10/01/2017 FERRITIN 34084 FERRITIN 68.0 ng/mL 10/01/2017 THYROID STIMULATING HORMONE 59389 TSH 1.401 uIU/mL 8 GLYCOSYLATED HEMOGLOBIN TEST 32923 Hgb A1c 06191-0 5.4 % 10/01/2017 FOLIC ACID 17815 Folate >24.0 ng/mL 10/01/2017 ASSAY TRIIODOTHYRONINE (T3) 60226 T3 Total 1.0 ng/mL 10/01/2017 ERYTHROCYTE SEDIMENTATION RATE 23569 Sed Rate 5 mm/hr 10/01/2017 MEAN GLUC 8179188 Calc M zach Gluc 108 mg/dL 10/01/2017 PT 8759735 PT 18.6 Seconds 08/07/2017 PT 1461986 INR 1.5 08/07/2017 COMPREHENSIVE METABOLIC 48868 AST 21 U/L 08/07/2017 COMPREHENSIVE METABOLIC 23639 ALT 37 U/L 08/07/2017 COMPREHENSIVE METABOLIC 90030 BUN 14 mg/dL 08/07/2017 COMPREHENSIVE METABOLIC 36043 ALBUMIN 4.5 g/dL 08/07/2017 COMPREHENSIVE METABOLIC 53240 CHLORIDE 104 mmol/L 08/07/2017 COMPREHENSIVE METABOLIC 89593 Bili Total 0.3 mg/dL 08/07/2017 COMPREHENSIVE METABOLIC 61372 ALK PHOS 55 U/L 08/07/2017 COMPREHENSIVE METABOLIC 11132 SODIUM 139 mmol/L 08/07/2017 COMPREHENSIVE METABOLIC 58109 CREATININE 0.77 mg/dL 08/07/2017 COMPREHENSIVE METABOLIC 19702 CALCIUM 9.2 mg/dL 08/07/2017 COMPREHENSIVE METABOLIC 24704 POTASSIUM 3.7 mmol/L 08/07/2017 COMPREHENSIVE METABOLIC 36542 Total Protein 6.5 g/dL 08/07/2017 COMPREHENSIVE METABOLIC 48002 Glucose 101 mg/dL 08/07/2017 COMPREHENSIVE METABOLIC 11099 Bicarbonate 25 mmol/L 08/07/2017 COMPREHENSIVE METABOLIC 27468 AGAP 10 mmol/L 08/07/2017 COMPLETE BLOOD COUNT 3815606 WBC 9.4 10e9/L 08/07/2017 COMPLETE BLOOD COUNT 0021038 RBC 4.38 10e12/L 8 COMPLETE BLOOD COUNT 6669390 HEMOGLOBIN 14.5 g/dL 08/07/2017 COMPLETE BLOOD COUNT 3824575 HEMATOCRIT 42.7 % 08/07/2017 COMPLETE BLOOD COUNT 6425293 MCV 97.5 fL 08/07/2017 COMPLETE BLOOD COUNT 5128299 MCH 33.1 pg 08/07/2017 COMPLETE BLOOD COUNT 5683859 MCHC 34.0 g/dL 08/07/2017 COMPLETE BLOOD COUNT 1797169 PLATELET COUNT 313 10e9/L 08/07/2017 COMPLETE BLOOD COUNT 9226110 Mean Plt Volume 8.6 fL 08/07/2017 COMPLETE BLOOD COUNT 9017360 Neut Auto 51.6 % 08/07/2017 COMPLETE BLOOD COUNT 8569630 Lymph Auto 40.0 % 08/07/2017 COMPLETE BLOOD COUNT 0510175 Lucas Auto 6.8 % 08/07/2017 COMPLETE BLOOD COUNT 3073630 RDW 12.9 % 08/07/2017 COMPLETE BLOOD COUNT 2983105 Eos Auto 1.4 % 08/07/2017 COMPLETE BLOOD COUNT 4255694 Baso Auto 0.2 % 08/07/2017 COMPLETE BLOOD COUNT 1092506 Neutrophil Abs 4.85 10e9/L 08/07/2017 COMPLETE BLOOD COUNT 2288640 Lymphocyte Abs 3.76 10e9/L 08/07/2017 COMPLETE BLOOD COUNT 8810001 Monocyte Abs 0.64 10e9/L 08/07/2017 COMPLETE BLOOD COUNT 9419333 Eosinophil Abs 0.13 10e9/L 08/07/2017 COMPLETE BLOOD COUNT 6571909 RDW-SD 45.1 fL 08/07/2017 COMPLETE BLOOD COUNT 3536996 Basophil Abs 0.02 10e9/L 08/07/2017 GFR CALC 3913604 GFR Non Afr Amr >60 mL/min 08/07/2017 GFR CALC 1415926 GFR Afr Amr >60 mL/min 08/07/2017 COMPLETE BLOOD COUNT 0060090 WBC 9.2 10e9/L 07/15/2017 COMPLETE BLOOD COUNT 8295579 RBC 4.70 10e12/L 8 COMPLETE BLOOD COUNT 2451215 HEMOGLOBIN 15.4 g/dL 07/15/2017 COMPLETE BLOOD COUNT 7985627 HEMATOCRIT 46.2 % 07/15/2017 COMPLETE BLOOD COUNT 7955887 MCV 98.3 fL 07/15/2017 COMPLETE BLOOD COUNT 7441860 MCH 32.8 pg 07/15/2017 COMPLETE BLOOD COUNT 4194076 MCHC 33.3 g/dL 07/15/2017 COMPLETE BLOOD COUNT 4895381 PLATELET COUNT 348 10e9/L 07/15/2017 COMPLETE BLOOD COUNT 6662530 Mean Plt Volume 8.9 fL 07/15/2017 COMPLETE BLOOD COUNT 7028061 Neut Auto 60.6 % 07/15/2017 COMPLETE BLOOD COUNT 9161344 Lymph Auto 30.9 % 07/15/2017 COMPLETE BLOOD COUNT 9955160 Lucas Auto 7.1 % 07/15/2017 COMPLETE BLOOD COUNT 4574847 RDW 13.1 % 07/15/2017 COMPLETE BLOOD COUNT 5682301 Eos Auto 1.2 % 07/15/2017 COMPLETE BLOOD COUNT 6943574 Baso Auto 0.2 % 07/15/2017 COMPLETE BLOOD COUNT 1645311 Neutrophil Abs 5.58 10e9/L 07/15/2017 COMPLETE BLOOD COUNT 6378275 Lymphocyte Abs 2.84 10e9/L 07/15/2017 COMPLETE BLOOD COUNT 3140520 Monocyte Abs 0.65 10e9/L 07/15/2017 COMPLETE BLOOD COUNT 2292781 Eosinophil Abs 0.11 10e9/L 07/15/2017 COMPLETE BLOOD COUNT 3784827 RDW-SD 46.1 fL 07/15/2017 COMPLETE BLOOD COUNT 4812293 Basophil Abs 0.02 10e9/L 07/15/2017 GFR CALC 8425167 GFR Non Afr Amr >60 mL/min 07/15/2017 GFR CALC 9339604 GFR Afr Amr >60 mL/min 07/15/2017 COMPREHENSIVE METABOLIC 58818 AST 16 U/L 07/15/2017 COMPREHENSIVE METABOLIC 00933 ALT 20 U/L 07/15/2017 COMPREHENSIVE METABOLIC 54832 BUN 13 mg/dL 07/15/2017 COMPREHENSIVE METABOLIC 02527 ALBUMIN 4.6 g/dL 07/15/2017 COMPREHENSIVE METABOLIC 98070 CHLORIDE 106 mmol/L 07/15/2017 COMPREHENSIVE METABOLIC 71534 Bili Total 0.3 mg/dL 07/15/2017 COMPREHENSIVE METABOLIC 34122 ALK PHOS 50 U/L 07/15/2017 COMPREHENSIVE METABOLIC 02056 SODIUM 137 mmol/L 07/15/2017 COMPREHENSIVE METABOLIC 26654 CREATININE 0.62 mg/dL 07/15/2017 COMPREHENSIVE METABOLIC 86505 CALCIUM 9.2 mg/dL 07/15/2017 COMPREHENSIVE METABOLIC 37711 POTASSIUM 3.8 mmol/L 07/15/2017 COMPREHENSIVE METABOLIC 35287 Total Protein 6.7 g/dL 07/15/2017 COMPREHENSIVE METABOLIC 90600 Glucose 83 mg/dL 07/15/2017 COMPREHENSIVE METABOLIC 32471 Bicarbonate 30 mmol/L 07/15/2017 COMPREHENSIVE METABOLIC 43114 AGAP 1 mmol/L 07/15/2017 THYROID STIMULATING HORMONE 58431 TSH 2.111 uIU/mL 201 7 COMPREHENSIVE METABOLIC 20396 AST 33 U/L 08/27/2016 COMPREHENSIVE METABOLIC 30594 ALT 55 U/L 08/27/2016 COMPREHENSIVE METABOLIC 85276 BUN 11 mg/dL 08/27/2016 COMPREHENSIVE METABOLIC 18554 ALBUMIN 4.6 g/dL 08/27/2016 COMPREHENSIVE METABOLIC 39626 CHLORIDE 103 mmol/L 08/27/2016 COMPREHENSIVE METABOLIC 07072 Bili Total 0.3 mg/dL 08/27/2016 COMPREHENSIVE METABOLIC 95760 ALK PHOS 60 U/L 08/27/2016 COMPREHENSIVE METABOLIC 76536 SODIUM 140 mmol/L 08/27/2016 COMPREHENSIVE METABOLIC 54705 CREATININE 0.69 mg/dL 08/27/2016 COMPREHENSIVE METABOLIC 32783 CALCIUM 9.3 mg/dL 08/27/2016 COMPREHENSIVE METABOLIC 12954 POTASSIUM 3.7 mmol/L 08/27/2016 COMPREHENSIVE METABOLIC 90691 Total Protein 6.8 g/dL 08/27/2016 COMPREHENSIVE METABOLIC 91496 Glucose 79 mg/dL 08/27/2016 COMPREHENSIVE METABOLIC 79498 Bicarbonate 25 mmol/L 08/27/2016 COMPREHENSIVE METABOLIC 94530 AGAP 12 mmol/L 08/27/2016 COMPLETE BLOOD COUNT 1855006 WBC 9.4 10e9/L 08/27/2016 COMPLETE BLOOD COUNT 3429182 RBC 4.35 10e12/L 7 COMPLETE BLOOD COUNT 8394910 HEMOGLOBIN 14.2 g/dL 08/27/2016 COMPLETE BLOOD COUNT 4747518 HEMATOCRIT 41.5 % 08/27/2016 COMPLETE BLOOD COUNT 8963130 MCV 95.4 fL 08/27/2016 COMPLETE BLOOD COUNT 0728269 MCH 32.6 pg 08/27/2016 COMPLETE BLOOD COUNT 6441018 MCHC 34.2 g/dL 08/27/2016 COMPLETE BLOOD COUNT 0309556 PLATELET COUNT 289 10e9/L 08/27/2016 COMPLETE BLOOD COUNT 4774527 Mean Plt Volume 9.8 fL 08/27/2016 COMPLETE BLOOD COUNT 8967487 Neut Auto 47.7 % 08/27/2016 COMPLETE BLOOD COUNT 2678307 Lymph Auto 44.2 % 08/27/2016 COMPLETE BLOOD COUNT 9176630 Lucas Auto 6.6 % 08/27/2016 COMPLETE BLOOD COUNT 5860002 RDW 12.9 % 08/27/2016 COMPLETE BLOOD COUNT 9874604 Eos Auto 1.4 % 08/27/2016 COMPLETE BLOOD COUNT 7939683 Baso Auto 0.1 % 08/27/2016 COMPLETE BLOOD COUNT 3122548 Neutrophil Abs 4.48 10e9/L 08/27/2016 COMPLETE BLOOD COUNT 3229726 Lymphocyte Abs 4.15 10e9/L 08/27/2016 COMPLETE BLOOD COUNT 1043621 Monocyte Abs 0.62 10e9/L 08/27/2016 COMPLETE BLOOD COUNT 3277033 Eosinophil Abs 0.13 10e9/L 08/27/2016 COMPLETE BLOOD COUNT 9859772 RDW-SD 43.9 fL 08/27/2016 COMPLETE BLOOD COUNT 0080860 Basophil Abs 0.01 10e9/L 08/27/2016 PT 5292315 PT 15.0 Seconds 08/27/2016 PT 2507409 INR 1.2 08/27/2016 GFR CALC 4962287 GFR Afr Amr >60 mL/min 08/27/2016 GFR CALC 5262564 GFR Non Afr Amr >60 mL/min 08/27/2016 GFR CALC 5389342 GFR Non Afr Amr >60 mL/min 05/24/2016 GFR CALC 2479140 GFR Afr Amr >60 mL/min 05/24/2016 COMPREHENSIVE METABOLIC 88512 AST 19 U/L 05/24/2016 COMPREHENSIVE METABOLIC 57015 ALT 23 U/L 05/24/2016 COMPREHENSIVE METABOLIC 88858 BUN 12 mg/dL 05/24/2016 COMPREHENSIVE METABOLIC 82651 ALBUMIN 4.1 g/dL 05/24/2016 COMPREHENSIVE METABOLIC 56593 CHLORIDE 105 mmol/L 05/24/2016 COMPREHENSIVE METABOLIC 06788 Bili Total 0.4 mg/dL 05/24/2016 COMPREHENSIVE METABOLIC 41013 ALK PHOS 52 U/L 05/24/2016 COMPREHENSIVE METABOLIC 23754 SODIUM 136 mmol/L 05/24/2016 COMPREHENSIVE METABOLIC 18097 CREATININE 0.61 mg/dL 05/24/2016 COMPREHENSIVE METABOLIC 74617 CALCIUM 8.8 mg/dL 05/24/2016 COMPREHENSIVE METABOLIC 28685 POTASSIUM 3.8 mmol/L 05/24/2016 COMPREHENSIVE METABOLIC 10724 Total Protein 6.2 g/dL 05/24/2016 COMPREHENSIVE METABOLIC 35938 Glucose 95 mg/dL 05/24/2016 COMPREHENSIVE METABOLIC 74482 Bicarbonate 19 mmol/L 05/24/2016 COMPREHENSIVE METABOLIC 71664 AGAP 12 mmol/L 05/24/2016 PT 4866496 PT 25.7 Seconds 05/24/2016 PT 4734571 INR 2.4 05/24/2016 PT 7313491 PT 22.2 Seconds 04/11/2016 PT 9208012 INR 2.0 04/11/2016 PT 8981146 PT 16.5 Seconds 03/13/2016 PT 7678362 INR 1.4 03/13/2016 THYROID STIMULATING HORMONE 88760 TSH 1.151 uIU/mL 6 COMPLETE BLOOD COUNT 8153349 WBC 10.0 10e9/L 03/12/2016 COMPLETE BLOOD COUNT 2133753 RBC 4.08 10e12/L 6 COMPLETE BLOOD COUNT 9863792 HEMOGLOBIN 13.5 g/dL 03/12/2016 COMPLETE BLOOD COUNT 9627622 HEMATOCRIT 38.8 % 03/12/2016 COMPLETE BLOOD COUNT 0208758 MCV 95.1 fL 03/12/2016 COMPLETE BLOOD COUNT 9724678 MCH 33.1 pg 03/12/2016 COMPLETE BLOOD COUNT 6592524 MCHC 34.8 g/dL 03/12/2016 COMPLETE BLOOD COUNT 1991538 PLATELET COUNT 282 10e9/L 03/12/2016 COMPLETE BLOOD COUNT 3404507 Mean Plt Volume 9.6 fL 03/12/2016 COMPLETE BLOOD COUNT 4083405 Neut Auto 53.5 % 03/12/2016 COMPLETE BLOOD COUNT 8582180 Lymph Auto 39.0 % 03/12/2016 COMPLETE BLOOD COUNT 2811070 Lucas Auto 5.9 % 03/12/2016 COMPLETE BLOOD COUNT 0002554 RDW 12.6 % 03/12/2016 COMPLETE BLOOD COUNT 5752408 Eos Auto 1.4 % 03/12/2016 COMPLETE BLOOD COUNT 5428335 Baso Auto 0.2 % 03/12/2016 COMPLETE BLOOD COUNT 5244066 Neutrophil Abs 5.35 10e9/L 03/12/2016 COMPLETE BLOOD COUNT 6834346 Lymphocyte Abs 3.90 10e9/L 03/12/2016 COMPLETE BLOOD COUNT 0417815 Monocyte Abs 0.59 10e9/L 03/12/2016 COMPLETE BLOOD COUNT 3635569 Eosinophil Abs 0.14 10e9/L 03/12/2016 COMPLETE BLOOD COUNT 6832456 RDW-SD 42.7 fL 03/12/2016 COMPLETE BLOOD COUNT 6189127 Basophil Abs 0.02 10e9/L 03/12/2016 COMPREHENSIVE METABOLIC 42008 AST 13 U/L 03/12/2016 COMPREHENSIVE METABOLIC 00918 ALT 11 U/L 03/12/2016 COMPREHENSIVE METABOLIC 18900 BUN 11 mg/dL 03/12/2016 COMPREHENSIVE METABOLIC 21391 ALBUMIN 4.1 g/dL 03/12/2016 COMPREHENSIVE METABOLIC 19491 CHLORIDE 107 mmol/L 03/12/2016 COMPREHENSIVE METABOLIC 65944 Bili Total 0.3 mg/dL 03/12/2016 COMPREHENSIVE METABOLIC 87399 ALK PHOS 41 U/L 03/12/2016 COMPREHENSIVE METABOLIC 29638 SODIUM 137 mmol/L 03/12/2016 COMPREHENSIVE METABOLIC 31093 CREATININE 0.62 mg/dL 03/12/2016 COMPREHENSIVE METABOLIC 79970 CALCIUM 9.0 mg/dL 03/12/2016 COMPREHENSIVE METABOLIC 11519 POTASSIUM 3.8 mmol/L 03/12/2016 COMPREHENSIVE METABOLIC 17049 Total Protein 6.1 g/dL 03/12/2016 COMPREHENSIVE METABOLIC 27181 Glucose 95 mg/dL 03/12/2016 COMPREHENSIVE METABOLIC 30762 Bicarbonate 23 mmol/L 03/12/2016 COMPREHENSIVE METABOLIC 86331 AGAP 7 mmol/L 03/12/2016 GFR CALC 6648802 GFR Non Afr Amr >60 mL/min 03/12/2016 GFR CALC 5694361 GFR Afr Amr >60 mL/min 03/12/2016 PT 5355871 PT 14.4 Seconds 02/12/2016 PT 4717278 INR 1.2 02/12/2016 PT 4394275 PT 26.1 Seconds 02/01/2016 PT 3957995 INR 2.4 02/01/2016 EB VIRUS VCA G/M + EB[place] + [place] [address]|8 6665 x 2|33919 EBV VCA Ab IgG 3.70 11/13/2015 [place] VCA G/M + [place] + [place] [address]|8 6665 x 2|18992 EBV VCA Ab IgM 0.47 11/13/2015 EB VIRUS VCA G/M + [place] + [place] [address]|8 6665 x 2|59403 EBV Nuclear Ab 2.24 11/13/2015 EB V[place] VCA G/M + [place] + [place] [address]|8 6665 x 2|04479 EBV Early Ab 1.37 11/13/2015 PT 1266769 PT 18.9 Seconds 11/10/2015 PT 5744694 INR 1.6 11/10/2015 PT 0769575 PT 16.8 Seconds 09/29/2015 PT 4309800 INR 1.4 09/29/2015 COMPLETE BLOOD COUNT 0403593 WBC 9.6 10e9/L 09/29/2015 COMPLETE BLOOD COUNT 3042091 RBC 4.51 10e12/L 6 COMPLETE BLOOD COUNT 0706372 HEMOGLOBIN 14.8 g/dL 09/29/2015 COMPLETE BLOOD COUNT 1606739 HEMATOCRIT 43.3 % 09/29/2015 COMPLETE BLOOD COUNT 2255499 MCV 96.0 fL 09/29/2015 COMPLETE BLOOD COUNT 1194428 MCH 32.8 pg 09/29/2015 COMPLETE BLOOD COUNT 7901694 MCHC 34.2 g/dL 09/29/2015 COMPLETE BLOOD COUNT 0020660 PLATELET COUNT 310 10e9/L 09/29/2015 COMPLETE BLOOD COUNT 6512958 Mean Plt Volume 9.7 fL 09/29/2015 COMPLETE BLOOD COUNT 4151751 Neutrophil 60.3 % 09/29/2015 COMPLETE BLOOD COUNT 7362390 Lymph Auto % 32.4 % 09/29/2015 COMPLETE BLOOD COUNT 8420053 Monocyte Auto % 6.5 % 09/29/2015 COMPLETE BLOOD COUNT 1524144 RDW 12.8 % 09/29/2015 COMPLETE BLOOD COUNT 0155238 Eosinophil 0.7 % 09/29/2015 COMPLETE BLOOD COUNT 6030687 Basophil 0.1 % 09/29/2015 COMPLETE BLOOD COUNT 5596562 Neutrophil Abs 5.79 10e9/L 09/29/2015 COMPLETE BLOOD COUNT 1003209 Lymphoctye Abs 3.11 10e9/L 09/29/2015 COMPLETE BLOOD COUNT 0722692 Monocyte Abs 0.62 10e9/L 09/29/2015 COMPLETE BLOOD COUNT 2580095 Eosinophil Abs 0.07 10e9/L 09/29/2015 COMPLETE BLOOD COUNT 2215284 RDW-SD 43.6 fL 09/29/2015 COMPLETE BLOOD COUNT 7498552 Basophil Abs 0.01 10e9/L 09/29/2015 IRON 21216 Iron 86 ug/dL 09/29/2015 COMPLETE BLOOD COUNT 8723552 WBC 9.6 10e9/L 09/29/2015 COMPLETE BLOOD COUNT 7014877 RBC 4.51 10e12/L 6 COMPLETE BLOOD COUNT 2521419 HEMOGLOBIN 14.8 g/dL 09/29/2015 COMPLETE BLOOD COUNT 0011662 HEMATOCRIT 43.3 % 09/29/2015 COMPLETE BLOOD COUNT 4177966 MCV 96.0 fL 09/29/2015 COMPLETE BLOOD COUNT 4926869 MCH 32.8 pg 09/29/2015 COMPLETE BLOOD COUNT 5891504 MCHC 34.2 g/dL 09/29/2015 COMPLETE BLOOD COUNT 4181875 PLATELET COUNT 310 10e9/L 09/29/2015 COMPLETE BLOOD COUNT 8039927 Mean Plt Volume 9.7 fL 09/29/2015 COMPLETE BLOOD COUNT 8929140 Neutrophil 60.3 % 09/29/2015 COMPLETE BLOOD COUNT 8827404 Lymph Auto % 32.4 % 09/29/2015 COMPLETE BLOOD COUNT 7737873 Monocyte Auto % 6.5 % 09/29/2015 COMPLETE BLOOD COUNT 9042916 RDW 12.8 % 09/29/2015 COMPLETE BLOOD COUNT 4899813 Eosinophil 0.7 % 09/29/2015 COMPLETE BLOOD COUNT 1527522 Basophil 0.1 % 09/29/2015 COMPLETE BLOOD COUNT 0741763 Neutrophil Abs 5.79 10e9/L 09/29/2015 COMPLETE BLOOD COUNT 1418110 Lymphoctye Abs 3.11 10e9/L 09/29/2015 COMPLETE BLOOD COUNT 6794748 Monocyte Abs 0.62 10e9/L 09/29/2015 COMPLETE BLOOD COUNT 5936393 Eosinophil Abs 0.07 10e9/L 09/29/2015 COMPLETE BLOOD COUNT 8164696 RDW-SD 43.6 fL 09/29/2015 COMPLETE BLOOD COUNT 4849448 Basophil Abs 0.01 10e9/L 09/29/2015 PT 5626158 PT 16.8 Seconds 09/29/2015 PT 9678177 INR 1.4 09/29/2015 IRON 08493 Iron 86 ug/dL 09/29/2015 PT RI IVANNA 41856 PRO T PAULIE 19.4 SEC 07/27/2015 PT RI IVANNA 97632 INR M CMC 1.7 07/27/2015 PT RI IVANNA 90732 PRO T PAULIE 21.4 SEC 06/21/2015 PT RI IVANNA 47773 INR M CMC 1.9 06/21/2015 PT RI IVANNA 92305 PRO T PAULIE 24.5 SEC 05/24/2015 PT RI IVANNA 57903 INR M CMC 2.3 05/24/2015 Review of Systems System Result Effective Dates Neurologic paresthesia 0 02/17/2019 Ears/Nose/Throat/Neck epistaxis 02/17/2019 [...] 03/16/2018 Musculoskeletal No myalgias 03/16/2018 Neurologic headache 02/22 Gastrointestinal abdominal pain 02/16/2018 Gastrointestinal gas and [...] No scar Dermatologic sores 04/17 Neurologic headache /2 Musculoskeletal arthralgia(s) 03/12/2016 Musculoskeletal myalgias 03/12/2016 Constitutional [...] - General Neurologic mental status Overall: alert 201 7 None Full Exam - General Neurologic [...] - General Neurologic mental status Overall: alert 201 7 None Full Exam - General Neurologic [...] station 05/24/2015 None Procedures Procedure Codes Date ROUTINE VENIPUNCTURE CPT-4: 90065 02/17/2019 PT CPT-4: 7592420 02/17/2019 URINE CULTURE/ COLON Y COUNT CPT-4: 06177 02/08/2019 ROUTINE VENIPUNCTURE CPT-4: 41486 01/19/2019 PROTHROMBIN TIME CPT-4: 18519 01/19/2019 COMPLETE CBC W/AUTO DIFF WBC CPT-4: 54071 01/19/2019 ANTISTREPTOLYSIN O T ITER CPT-4: 91134 01/19/2019 HEPATIC FUNCTION PANEL CPT-4: 68344 01/19/2019 MYCOPLASMA ANTIBODY, IFA CPT-4: 46121Z8 01/19/2019 RESPIRATORY CULTURE & STAIN CPT-4: 50180 01/19/2019 STREP A ASSAY W/OPTIC CPT-4: 53450 01/19/2019 THER/PROPH/DIAG INJ SC/IM CPT-4: 64900 01/04/2019 TRIAMCINOLONE ACET I [place] NOS CPT-4: J3301 01/04/2019 ROUTINE VENIPUNCTURE CPT-4: 76362 12/18/2018 COMPLETE CBC W/AUTO DIFF WBC CPT-4: 36745 12/18/2018 COMPREHEN METABOLIC PANEL CPT-4: 41051 12/18/2018 HYDRATION IV INFUSIO N INIT CPT-4: 13662 12/16/2018 STREP A ASSAY W/OPTIC CPT-4: 43469 12/02/2018 ROUTINE VENIPUNCTURE CPT-4: 01736 11/30/2018 PT CPT-4: 6131284 11/30/2018 CEFTRIAXONE SODIUM I NJECTION CPT-4: J0696 11/30/2018 THER/PROPH/DIAG INJ SC/IM CPT-4: 19524 11/30/2018 URINE CULTURE/ COLON Y COUNT CPT-4: 84140 11/20/2018 URINALYSIS NONAUTO W /O SCOPE CPT-4: 26767 11/20/2018 CEFTRIAXONE SODIUM I NJECTION CPT-4: J0696 11/12/2018 THER/PROPH/DIAG INJ SC/IM CPT-4: 58674 11/12/2018 STREP A ASSAY W/OPTIC CPT-4: 49894 11/11/2018 CEFTRIAXONE SODIUM I NJECTION CPT-4: J0696 11/11/2018 THER/PROPH/DIAG INJ SC/IM CPT-4: 06023 11/11/2018 ROUTINE VENIPUNCTURE CPT-4: 59964 11/11/2018 ANTISTREPTOLYSIN O T ITER CPT-4: 77132 11/11/2018 COMPLETE CBC W/AUTO DIFF WBC CPT-4: 45923 11/11/2018 ROUTINE VENIPUNCTURE CPT-4: 30802 10/27/2018 PT CPT-4: 9918639 10/27/2018 THER/PROPH/DIAG INJ SC/IM CPT-4: 67681 10/09/2018 TRIAMCINOLONE ACET I NJ NOS CPT-4: J3301 10/09/2018 CEFTRIAXONE SODIUM I NJECTION CPT-4: J0696 10/08/2018 THER/PROPH/DIAG INJ SC/IM CPT-4: 71161 10/08/2018 CEFTRIAXONE SODIUM I NJECTION CPT-4: J0696 10/07/2018 THER/PROPH/DIAG INJ SC/IM CPT-4: 65388 10/07/2018 ROUTINE VENIPUNCTURE CPT-4: 86920 09/25/2018 COMPREHEN METABOLIC PANEL CPT-4: 64517 09/25/2018 COMPLETE CBC W/AUTO DIFF WBC CPT-4: 95061 09/25/2018 PT CPT-4: 4476557 09/25/2018 URINE CULTURE/ COLON Y COUNT CPT-4: 33919 09/10/2018 URINALYSIS NONAUTO W /O SCOPE CPT-4: 46577 09/10/2018 CEFTRIAXONE SODIUM I NJECTION CPT-4: J0696 09/08/2018 THER/PROPH/DIAG INJ SC/IM CPT-4: 45281 09/08/2018 ROUTINE VENIPUNCTURE CPT-4: 26138 08/14/2018 PT CPT-4: 7826794 08/14/2018 CEFTRIAXONE SODIUM I NJECTION CPT-4: J0696 07/02/2018 THER/PROPH/DIAG INJ SC/IM CPT-4: 36219 07/02/2018 THER/PROPH/DIAG INJ SC/IM CPT-4: 13929 07/02/2018 TRIAMCINOLONE ACET I NJ NOS CPT-4: J3301 07/02/2018 ROUTINE VENIPUNCTURE CPT-4: 51975 06/22/2018 ANTISTREPTOLYSIN O T ITER CPT-4: 01061 06/22/2018 ROUTINE VENIPUNCTURE CPT-4: 58824 06/17/2018 PROTHROMBIN TIME CPT-4: 53797 06/17/2018 URINE CULTURE/ COLON Y COUNT CPT-4: 37823 06/17/2018 CEFTRIAXONE SODIUM I NJECTION CPT-4: J0696 05/12/2018 THER/PROPH/DIAG INJ SC/IM CPT-4: 69008 05/12/2018 PROTHROMBIN TIME CPT-4: 91240 05/11/2018 CEFTRIAXONE SODIUM I NJECTION CPT-4: J0696 05/11/2018 THER/PROPH/DIAG INJ SC/IM CPT-4: 15543 05/11/2018 ROUTINE VENIPUNCTURE CPT-4: 78063 04/30/2018 PROTHROMBIN TIME CPT-4: 39525 04/30/2018 THER/PROPH/DIAG INJ SC/IM CPT-4: 91711 04/02/2018 TRIAMCINOLONE ACET I NJ NOS CPT-4: J3301 04/02/2018 IIV4 VACCINE 3 YRS+ IM AND UP CPT-4: 21064 03/24/2018 IMMUNIZATION ADMIN CPT- 4: 39968 03/24/2018 ROUTINE VENIPUNCTURE CPT-4: 78093 03/24/2018 PT CPT-4: 1930219 03/24/2018 PROTHROMBIN TIME CPT-4: 48722 02/24/2018 ROUTINE VENIPUNCTURE CPT-4: 79939 02/24/2018 ROUTINE VENIPUNCTURE CPT-4: 14026 02/05/2018 PROTHROMBIN TIME CPT-4: 64367 02/05/2018 URINE CULTURE/ COLON Y COUNT CPT-4: 70718 02/05/2018 CEFTRIAXONE SODIUM I NJECTION CPT-4: J0696 01/29/2018 THER/PROPH/DIAG INJ SC/IM CPT-4: 86321 01/29/2018 CEFTRIAXONE SODIUM I NJECTION CPT-4: J0696 01/28/2018 THER/PROPH/DIAG INJ SC/IM CPT-4: 47412 01/28/2018 URINALYSIS NONAUTO W /O SCOPE CPT-4: 54474 01/26/2018 URINE CULTURE/ COLON Y COUNT CPT-4: 87048 01/26/2018 ROUTINE VENIPUNCTURE CPT-4: 28761 01/01/2018 PROTHROMBIN TIME CPT-4: 65573 01/01/2018 THER/PROPH/DIAG INJ SC/IM CPT-4: 32535 12/25/2017 TRIAMCINOLONE ACET I NJ NOS CPT-4: J3301 12/25/2017 DEXAMETHASONE SODIUM PHOS CPT-4: J1100 12/25/2017 STREP A ASSAY W/OPTIC CPT-4: 61553 12/11/2017 CEFTRIAXONE SODIUM I NJECTION CPT-4: J0696 12/11/2017 THER/PROPH/DIAG INJ SC/IM CPT-4: 63054 12/11/2017 ROUTINE VENIPUNCTURE CPT-4: 69655 12/01/2017 ANTISTREPTOLYSIN O T ITER CPT-4: 15972 12/01/2017 PROTHROMBIN TIME CPT-4: 59408 12/01/2017 VITAMIN D TOTAL (25 HYDROXY) CPT-4: 50107 12/01/2017 VITAMIN B-12 CPT-4: 87964 12/01/2017 SPECIMEN HAND[facility]ING [facility] CPT-4: 64005 11/05/2017 ROUTINE VENIPUNCTURE CPT-4: 95641 10/14/2017 ANTISTREPTOLYSIN O T ITER CPT-4: 15955 10/14/2017 ROUTINE VENIPUNCTURE CPT-4: 62957 10/06/2017 PROTHROMBIN TIME CPT-4: 47261 10/06/2017 THER/PROPH/DIAG INJ SC/IM CPT-4: 85784 10/06/2017 TRIAMCINOLONE ACET I NJ NOS CPT-4: J3301 10/06/2017 ROUTINE VENIPUNCTURE CPT-4: 96124 10/01/2017 VITAMIN B-12 CPT-4: 70125 10/01/2017 FOLIC ACID CPT-4: 03427 10/01/2017 ASSAY THYROID STIM H ORMONE CPT-4: 72886 10/01/2017 ASSAY OF FREE THYROXINE CPT-4: 45006 10/01/2017 ASSAY TRIIODOTHYRONI NE (T3) CPT-4: 34393 10/01/2017 ASSAY OF BLOOD/URIC ACID CPT-4: 59795 10/01/2017 RHEUMATOID FACTOR QUANT CPT-4: 04042 10/01/2017 RBC SED RATE AUTOMATED CPT-4: 48592 10/01/2017 ANTISTREPTOLYSIN O T ITER CPT-4: 81173 10/01/2017 ASSAY OF IRON CPT-4: 13366 10/01/2017 ASSAY OF FERRITIN CPT-4: 10596 10/01/2017 ANTINUCLEAR ANTIBODIES CPT-4: 59159 10/01/2017 A1C HPLC CPT-4: 35939 10/01/2017 VITAMIN D TOTAL (25 HYDROXY) CPT-4: 78073 10/01/2017 THER/PROPH/DIAG INJ SC/IM CPT-4: 42021 09/05/2017 TRIAMCINOLONE ACET I NJ NOS CPT-4: J3301 09/05/2017 URINALYSIS NONAUTO W /O SCOPE CPT-4: 51876 09/05/2017 URINE CULTURE/ COLON Y COUNT CPT-4: 68416 09/05/2017 ROUTINE VENIPUNCTURE CPT-4: 71474 09/04/2017 PROTHROMBIN TIME CPT-4: 08503 09/04/2017 ROUTINE VENIPUNCTURE CPT-4: 81693 08/07/2017 COMPLETE CBC W/AUTO DIFF WBC CPT-4: 34581 08/07/2017 COMPREHEN METABOLIC PANEL CPT-4: 49175 08/07/2017 PROTHROMBIN TIME CPT-4: 93946 08/07/2017 INFLUENZA ASSAY W/OPTIC CPT-4: 29529 07/15/2017 ROUTINE VENIPUNCTURE CPT-4: 31751 07/15/2017 COMPREHEN METABOLIC PANEL CPT-4: 10043 07/15/2017 COMPLETE CBC W/AUTO DIFF WBC CPT-4: 87685 07/15/2017 CEFTRIAXONE SODIUM I NJECTION CPT-4: J0696 07/04/2017 THER/PROPH/DIAG INJ SC/IM CPT-4: 92736 07/04/2017 THER/PROPH/DIAG INJ SC/IM CPT-4: 92023 07/04/2017 TRIAMCINOLONE ACET I NJ NOS CPT-4: J3301 07/04/2017 CEFTRIAXONE SODIUM I NJECTION CPT-4: J0696 07/02/2017 THER/PROPH/DIAG INJ SC/IM CPT-4: 61125 07/02/2017 CEFTRIAXONE SODIUM I NJECTION CPT-4: J0696 07/01/2017 THER/PROPH/DIAG INJ SC/IM CPT-4: 00229 07/01/2017 ROUTINE VENIPUNCTURE CPT-4: 76660 06/19/2017 PROTHROMBIN TIME CPT-4: 75821 06/19/2017 THER/PROPH/DIAG INJ SC/IM CPT-4: 15074 04/01/2017 TRIAMCINOLONE ACET I NJ NOS CPT-4: J3301 04/01/2017 ROUTINE VENIPUNCTURE CPT-4: 57037 02/10/2017 PROTHROMBIN TIME CPT-4: 26888 02/10/2017 URINALYSIS NONAUTO W /O SCOPE CPT-4: 46777 02/10/2017 URINE CULTURE/ COLON Y COUNT CPT-4: 25976 02/10/2017 ROUTINE VENIPUNCTURE CPT-4: 72035 02/05/2017 PROTHROMBIN TIME CPT-4: 46892 02/05/2017 THROAT CULTURE CPT-4: 79927 02/03/2017 STREP A ASSAY W/OPTIC CPT-4: 42817 01/13/2017 ROUTINE VENIPUNCTURE CPT-4: 16294 12/18/2016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 [facility] CPT-4: 40157 10/02/2015 ([id number]) OFFICE/OUTPA TIENT VISIT EST Diagnosis: 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[ICD10: Z79.01] Diagnosis: Other fatigue[ICD10: R53.83] Kristine Moran YONATHANJANETT [employer] [facility] CPT-4: 36190 09/29/2015 ([id number]) OFFICE/OUTPA TIENT VISIT EST Diagnosis: 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[ICD10: Z79.01] Kristinebee BRAMBILA DO [facility] CPT-4: 57030 07/27/2015 ([id number]) OFFICE/OUTPA TIENT VISIT EST Diagnosis: Fibromyalgia[ICD10: M79.7] Diagnosis: Tachycardia, unspecified[ICD10: R00.0] Kristine ROWLAND DO [facility] CPT-4: 28943 07/10/2015 ([id number]) OFFICE/OUTPA TIENT VISIT EST Diagnosis: Encounter for therapeutic drug level monitoring[ICD10: Z51.81] Diagnosis: Dysuria[ICD10: R30.0] Kristine BRAMBILA DO [facility] CPT-4: 82813 06/30/2015 OFFICE/OUTPATIENT SIT EST Diagnosis: Scar conditions and fibrosis of skin[ICD10: L90.5] Diagnosis: Acute sinusitis, unspecified[ICD10: J01.90] Meli McintyreSarayjoe MINER S. O RENDER DO [employer] CPT-4: 63188 06/27/2015 ([id number]) OFFICE/OUTPA TIENT VISIT EST Diagnosis: nursing home (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[ICD10: Z79.01] Kristine BRAMBILA DO [facility] CPT-4: 58763 06/21/2015 OFFICE/OUTPATIENT SIT EST Diagnosis: Fibromyalgia[ICD10: M79.7] Kristine BRAMBILA DO [facility] CPT-4: 17925 06/08/2015 ([id number]) OFFICE/OUTPA TIENT VISIT EST Diagnosis: Dysuria[ICD10: R30.0] Kristine BRAMBILA DO [facility] CPT-4: 80113 05/31/2015 OFFICE/OUTPATIENT SIT NEW Diagnosis: Localized enlarged lymph nodes[ICD10: R59.0] Diagnosis: Benign intracranial hypertension[ICD10: G93.2] Diagnosis: Personal history of pulmonary embolism[ICD10: Z86.711] Diagnosis: 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[ICD10: Z79.01] Diagnosis: Tachycardia, unspecified[ICD10: R00.0] Meli McintyreSarayjimenezreyna KRISTINE S. O RENDER DO [employer] CPT-4: 80240 05/24/2015 Plan of Care Planned Activity Notes C odes Status Date Visit Diagnosis Plan: Epistaxis Disc ussion: Afrin to right nares BID x 3 days Check PT/INR now ICD-9 : 784.7 ICD-10 : R04.0 02/17/2019 Visit Diagnosis Plan: Radiculopathy, site unspecified Discussion: Check L/S spine x-ray to start with ICD-9 : 724.4 ICD-10 : M54.10 02/17/2019 Appointment: [phone] [facility] [facility] 02/17/2019 Care Plan: X-RAY EXAM L-S SPINE 2/3 VWS LOINC : 77929-9 Pending 02/17/2019 Appointment: Ivon Sky [address] [place] [address] [place] CANCELED 02/16/2019 Visit Diagnosis Plan: Unspecified [...] ICD-10 : K58.1 02/08/2019 Appointment: Ivon Sky [address] [place], [place] [phone] ACUTE ILLNESS 02/08/2019 Patient Education: Anusol-HC- [employer] Coupon [id number] https://www.[email or web address].Interview Master/samplemd/resources/getResource/61/0d22leu2-8099-6362-1f Completed 02/08/2019 Visit Diagnosis Plan: Other fatigue [...] ICD-10 : J02.8 01/19/2019 Visit Diagnosis Plan: 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 ) use of 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 Discussion: [...] ICD-10 : R05 01/19/2019 Appointment: Ivon Sky [address] [place] [address] ACUTE ILLNESS 01/19/2019 Visit Diagnosis Plan: Otalgia, [...] ICD-10 : R53.83 01/04/2019 Appointment: Ivon Sky [address] [place], [place] [phone] ACUTE ILLNESS 01/04/2019 Appointment: Kristine Brambila WPtel: [address] [place], [place] [phone] LAB 12/18/2018 Appointment: Kristine Brambila WPtel: [address] [place] [address] ACUTE ILLNESS 12/16/2018 Visit Diagnosis Plan: Anemia, [...] : R53.83 12/03/2018 Appointment: Kristine Brambila [facility]Ptel: [phone] [facility] [facility] 12/03/2018 Visit Diagnosis Plan: Acute [...] ICD-10 : R59.9 12/02/2018 Appointment: Ivon Sky [address] [place], [place] [id number] FOLLOW UP 12/02/2018 Visit Diagnosis Plan: 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 ) use of 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 Discussion: [...] : H66.002 11/30/2018 Appointment: Ivon Sky [address] [facility] ACUTE ILLNESS 11/30/2018 Patient Education: Coumadin- Optimize[employer] Coupon [id number] https://www.[employer].com/samplemd/resources/getResource/61/9519z828-7e32-68d0-32 Completed 11/30/2018 Appointment: Yonathanjanett Kristine KalinImelda WPtel: [address] [place] [address] [place] UA 11/20/2018 Appointment: [place] Kristine KalinImelda WPtel: [address] [place], [place] [phone] [place] INJECTION 11/12/2018 Visit Diagnosis Plan: Streptococcal pharyngitis Discussion: Strep A- positive ASO titer today along with CBC. Rocephin 1 gram. RTC tmrw for another injection. Patient states understanding. ICD-9 : 034.0 ICD-10 : J02.0 11/11/2018 Appointment: Lulu Navarro [address] [place] [address] ACUTE ILLNESS 11/11/2018 Appointment: Kristine Brambila WPtel: [address] [place] [address] ACUTE ILLNESS 10/27/2018 Appointment: Kristine Brambila WPtel: [address] [place] [address] [place] INJECTION 10/09/2018 Visit Diagnosis Plan: Acute recurrent maxillary sinusi tis Discussion: Rocephin 1 gram administered in clinic- patient tolerated well. Continue with supportive treatment at home as well. Tylenol for headache. Salt water gargles and sinus rinses advised. Patient states understanding. ICD-9 : 461.0 ICD-10 : J01.10/08/2018 Appointment: Lulu Navarro [address] [place], [place] [phone] [place] INJECTION 10/08/2018 Visit Diagnosis Plan: Acute recurrent maxillary sinusi tis Discussion: Rocephin- 1 gram administered in clinic. Patient tolerated well. Sinus rinses encouraged. Rest and fluids. Tylenol or Motrin for pain and fever. FU PRN. Patient states understanding. ICD-9 : 461.0 ICD-10 : J01.01 10/07/2018 Appointment: Lulu Navarro [address] [place], [place] [phone] ACUTE ILLNESS 10/07/2018 Visit Diagnosis Plan: Dizziness [...] ICD-10 : R42 09/25/2018 Appointment: Lulu Navarro [facility] Jaqueline [address] ACUTE ILLNESS 09/25/2018 Appointment: Kristine Brambila WPtel: [address] [place] [address] UA 09/10/2018 Visit Diagnosis Plan: Furuncle right [...] : A49.1 09/08/2018 Appointment: Kristine Brambila WPtel: [address] [place] [address] ACUTE ILLNESS 09/08/2018 Patient Education: cefdinir- Optimize[employer] Coupon [id number] https://www.[employer]Edge[employer].com/samplemd/resources/getResource/61/[email or web address]-x9 Completed 09/08/2018 Appointment: Kristine Brambila WPtel: [address] [place] [address] [place] LAB 08/14/2018 Visit Diagnosis Plan: Acute sinusitis, [...] ICD-10 : H92.02 07/23/2018 Appointment: Ivon Sky [address] [facility] ACUTE ILLNESS 07/23/2018 Patient Education: cyclobenzaprine- Opti mizeRX Coupon [id number] https://www.Gdd Hcanalytics/samplemd/resources/getResource/61/i267z0pn-m362-329p-no [email or web address].pdf Completed 07/23/2018 Visit Diagnosis Plan: Streptococcal infe ction, unspecified site Discussion: Pen Jude Dove Sees dentist today t o assess tooth ICD-9 : 041.00 ICD-10 : A49.1 07/08/2018 Appointment: Kristine Brambila WPtel: [address] [facility] FOLLOW UP 07/08/2018 Patient Education: penicillin V potassiu m- OptimizeRX Coupon [id number] https://www.Gdd Hcanalytics/samplemd/resources/getResource/61/ve887682-0149-2716-09 fa-[email or web address].pdf Completed 07/08/2018 Visit Diagnosis Plan: Localized enlarged [...] ICD-10 : K04.6 07/02/2018 Appointment: Ivon Sky [address] [place] [address] ACUTE ILLNESS 07/02/2018 Appointment: Kristine Brambila WPtel: [address] [place], [place] [phone] [place] LAB 06/22/2018 Appointment: Kristine Brambila WPtel: [address] [place] [address] [place] UA 06/17/2018 Visit Diagnosis Plan: Acute sinusitis, unspecified Discussion: dc keflex. start cefdinir daily for 10 days. saline up nares prn congestion. if no improvement after antibiotics or worsening symtpoms, call clinic. ICD-9 : 461.9 ICD-10 : J01.90 06/02/2018 Appointment: Ivon Sky [address] [place] [address] ACUTE ILLNESS 06/02/2018 Appointment: Kristine Brambila WPtel: [address] [place] [address] [place] INJECTION 05/12/2018 Visit Diagnosis Plan: 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 ) use of 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 Discussion: [...] ICD-10 : H70.002 05/11/2018 Appointment: Ivon Sky [address] [place] [address] FOLLOW UP 05/11/2018 Appointment: Kristine Brambila WPtel: [address] [place], [place] [phone] LAB 04/30/2018 Visit Diagnosis Plan: Acute sinusitis, unspecified Discussion: 40 mg kenalog given to patient in office. clindamycin prescribed for patient to take as directed. instructed to stop nasal sprays due to worsening pain/irritation and only use saline rinse up nares for now. call with any new or worsening symptoms. ICD-9 : 461.9 ICD-10 : J01.90 04/02/2018 Appointment: Ivon Sky [address] [place] [address] ACUTE ILLNESS 04/02/2018 Patient Education: Patient Medication Summary Completed 04/02/2018 Appointment: Kristine Brambila WPtel: [address] [place] [address] LAB 03/24/2018 Patient Education: Patient Medication Summary [...] ICD-10 : J30.89 03/16/2018 Appointment: Ivon Sky [address] [place] [address] ACUTE ILLNESS 03/16/2018 Patient Education: Patient Medication Summary Completed 03/16/2018 Appointment: Kristine Brambilatel: [address] [place] [address] [place] LAB 02/24/2018 Patient Education: Patient Medication Summary Completed 02/24/2018 Appointment: Kristine Brambilatel: [address] [place] [address] RESCHEDULED 02/18/2018 Visit Diagnosis Plan: Abdominal distension (gaseous) Discussion: Flagyl Restora Rx 1 daily Follow Up: 2 weeks ICD-9 : 787.3 ICD-10 : R14.0 02/16/2018 Visit Diagnosis Plan: Epigastric pain Discussion: Pepcid BID ICD-9 : 789.06 ICD-10 : R10.13 02/16/2018 Visit Diagnosis Plan: Diarrhea, unspecified Discussion: Flagyl ICD-9 : 787.91 ICD-10 : R19.7 02/16/2018 Appointment: Kristine Brambila WPtel: [address] [place] [address] ACUTE ILLNESS 02/16/2018 Patient Education: Patient Medication Summary Completed 02/16/2018 Appointment: Kristine Brambila WPtel: [address] [place], [place] [phone] [place] INJECTION 02/05/2018 Patient Education: Patient Medication Summary Completed 02/05/2018 Appointment: Kristine Brambila WPtel: [address] [place] [address] [place] INJECTION 01/29/2018 Patient Education: Patient Medication Summary Completed 01/29/2018 Appointment: Kristine Brambila WPtel: [address] [place], [place] [phone] [place] INJECTION 01/28/2018 Patient Education: Patient Medication [...] ICD-10 : Z77.21 01/26/2018 Appointment: Ivon Sky [address] [place] [address] ACUTE ILLNESS 01/26/2018 Patient Education: Patient Medication [...] ICD-10 : K13.79 01/01/2018 Appointment: Ivon Sky [address] [place] [address] ACUTE ILLNESS 01/01/2018 Patient Education: Patient Medication [...] ICD-10 : G43.909 12/25/2017 Appointment: Ivon Sky [address] [place] [address] ACUTE ILLNESS 12/25/2017 Patient Education: Patient Medication Summary Completed 12/25/2017 Visit Diagnosis Plan: Acute pharyngitis, unspecified Discussion: rapid strep negative. rocephin injection given in office. clindamycin prescribed as well to start tomorrow for 10 days. increase fluid intake. call or rtc next week if new or worsening symptoms. ICD-9 : 462 ICD-10 : J02.9 12/11/2017 Appointment: Ivon Sky [address] [place] [address] ACUTE ILLNESS 12/11/2017 Patient Education: Patient Medication Summary Completed 12/11/2017 Appointment: Kristine Brambila WPtel: [address] [place], [place] [address] LAB 12/01/2017 Patient Education: Patient Medication Summary Completed 12/01/2017 Visit Diagnosis Plan: Encounter for gyne cological examination (general) (routine) without abnormal findings Discussion: Pap done as has a history of choriocarcinoma Had mammogram last month ICD-9 : V72.31 ICD-10 : Z01.419 11/05/2017 Appointment: Kristine Brambila WPtel: [address] [place] [address] Annual Well Visit 11/05/2017 Patient Education: Patient Medication Summary Completed 11/05/2017 Appointment: Kristine Brambila WPtel: [address] [place] [address] LAB 10/14/2017 Patient Education: Patient Medication Summary Completed 10/14/2017 Care Plan: X-RAY EXAM OF SHOULDER right LOINC : 14544-9 Pending 10/07/2017 Visit Diagnosis Plan: Pain in right shoulder Discussion: xray ordered of right shoulder to rule out fracture. 40 mg kenalog given as one shot to assist with pain. ICD-9 : 719.41 ICD-10 : M25.511 10/06/2017 Visit Diagnosis Plan: nursing home (current ) use of 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 Discussion: pt/inr completed at today's visit. ICD-9 : V58.61 ICD-10 : Z79.01 10/06/2017 Appointment: Ivon Sky [address] [place] [address] ACUTE ILLNESS 10/06/2017 Patient Education: Patient Medication [...] : R20.2 10/01/2017 Appointment: Kristine Brambila WPtel: [address] [place] [address] ACUTE ILLNESS 10/01/2017 Patient Education: Patient Medication [...] ICD-10 : T23.262A 09/10/2017 Appointment: Ivon Sky [address] [place] [address] ACUTE ILLNESS 09/10/2017 Patient Education: Patient Medication Summary Completed 09/10/2017 Appointment: Kristine Brambila WPtel: [address] [place] [address] [place] INJECTION 09/05/2017 Patient Education: Patient Medication Summary Completed 09/05/2017 Appointment: Kristine Brambila WPtel: [address] [place] [address] LAB 09/04/2017 Patient Education: Patient Medication Summary Completed 09/04/2017 Appointment: Kristine Brambila WPtel: [address] [place] [address] LAB 08/07/2017 Patient Education: Patient Medication Summary Completed 08/07/2017 Patient Education: Patient Medication Summary Completed 07/21/2017 Care Plan: CHEST X-RAY 2VW FRONTAL&LATL LOINC : 44479-6 Pending 07/21/2017 Visit Diagnosis Plan: Acute upper [...] : K21.9 07/15/2017 Appointment: Ivon Sky [address] [facility] ACUTE ILLNESS 07/15/2017 Patient Education: Patient Medication Summary Completed 07/15/2017 Appointment: Kristine Brambila WPtel: [address] [place], [place] [phone] [place] INJECTION 07/04/2017 Patient Education: Patient Medication Summary Completed 07/04/2017 Appointment: Kristine Brambila WPtel: [address] [place], [place] [phone] [place] INJECTION 07/02/2017 Patient Education: Patient Medication [...] : H66.92 07/01/2017 Appointment: Ivon Sky [address] [facility] ACUTE ILLNESS 07/01/2017 Patient Education: Patient Medication Summary Completed 07/01/2017 Care Plan: US EXAM OF HEAD AND NECK Pending 07/01/2017 Appointment: Kristine Brambila WPtel: [address] [place], [place] [phone] [place] LAB 06/19/2017 Patient Education: Patient Medication [...] : J18.9 05/27/2017 Appointment: Ivon Sky [address] [facility] ACUTE ILLNESS 05/27/2017 Patient Education: Patient Medication [...] : G47.00 05/20/2017 Appointment: Ivon Sky [address] [facility] ACUTE ILLNESS 05/20/2017 Patient Education: Patient Medication Summary Completed 05/20/2017 Visit Diagnosis Plan: Headache Discu ssion: Discussed likely Migraine Discussed MRI results Discussed changing acetazolamide to HCTZ ICD-9 : 784.0 ICD-10 : R51 04/22/2017 Visit Diagnosis Plan: Diplopia Discu ssion: Updated dilated eye exam ICD-9 : 368.2 ICD-10 : H53.2 04/22/2017 Appointment: Kristine Brambila WPtel: [address] [place], [place] [phone] FOLLOW UP 04/22/2017 Patient Education: Patient Medication Summary Completed 04/22/2017 Appointment: Kristine Brambila WPtel: [address] [facility] US RESCHEDULED 04/07/2017 Visit Plan: Saline nasal flushes pr n. Tylenol/Motrin prn headache. Notify if persists/symptoms worsening. 04/01/2017 Visit Plan: Saline nasal flushes pr n. Tylenol/Motrin prn headache. Notify if persists/symptoms worsening. 04/01/2017 Visit NOS Plan: Plan Notes: Saline nasal flushes prn. Tyle... 04/01/2017 Visit Diagnosis Plan: Acute sinusitis, unspecified Discussion: Kenalog 40mg IM x1 Decadron/Garamycin Nose [place] Has appointment on April 28 with ENT ICD-9 : 461.9 ICD-10 : J01.90 04/01/2017 Appointment: Kristine Brambila WPtel: [address] ACUTE ILLNESS 04/01/2017 Patient Education: Patient Medication Summary Completed 04/01/2017 Referral: Serjio Lugo WPtel: [address] Referral Appointment Requested 03/20/2017 Patient Education: Patient Medication Summary Completed 02/27/2017 Care Plan: CT ABDOMEN W/O DYE abd/pe lvis stone search LOINC : 90129-2 Pending 02/27/2017 Patient Education: Patient Medication Summary Completed 02/12/2017 Care Plan: MRI NECK SPINE W/O DYE LOINC : 48529-7 Pending 02/12/2017 Appointment: Kristine Brambila WPtel: [phone] LAB 02/10/2017 Patient Education: Patient Medication Summary [...] : M54.2 02/05/2017 Appointment: Kristine Brambila WPtel: [address] [place] [address] ACUTE ILLNESS 02/05/2017 Patient Education: Patient Medication Summary Completed 02/05/2017 Care Plan: Referral Order SNOMED-CT : [id number] Pending 02/05/2017 Appointment: Kristine Brambila WPtel: [address] [place], [place] [address] THROAT SWAB 02/03/2017 Patient Education: Patient Medication Summary Completed 02/03/2017 Appointment: Kristine Brambila WPtel: [address] [place], [place] [phone] 01/13 canceled~sl CANCELED 01/28/2017 Visit Plan: Supportive [...] J02.8 01/13/2017 Appointment: Kristine Brambila WPtel: [address] [place], [place] [address] ACUTE ILLNESS 01/13/2017 Patient Education: Patient Medication Summary Completed 01/13/2017 Appointment: Kristine Brambila WPtel: [address] [place], [place] [phone] [place] LAB 12/18/2016 Patient Education: Patient Medication Summary Completed 12/18/2016 Visit Diagnosis Plan: Pain in unspecified joint Discussion: Will retry methotrexate since has worked in past to greatly reduce patient's pain--4 tabs week one then 5 tabs week 2 then 6 tabs weekly and fwup in 6 weeks ICD-9 : 719.49 ICD-10 : M25.50 11/27/2016 Appointment: Kristine Brambila WPtel: [address] [place], [place] [phone] [place] 11/26 lm~sl 11/26 confimed~sl MEDICATION REVIEW 11/27/2016 Patient Education: Patient Medication Summary Completed 11/27/2016 Visit Plan: Supportive care. Rest, Fluids, Tylenol/Motrin prn fever or bodyaches. Notify if worsening symptoms. 08/27/2016 Visit Plan: Supportive care. Rest, Fluids, Tylenol/Motrin prn fever or bodyaches. Notify if worsening symptoms. 08/27/2016 Visit NOS Plan: Plan Notes: Support gauri care. Rest, Fluids... 08/27/2016 Visit Diagnosis Plan: 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 ) use of 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 Discussion: PT/INR drawn ICD-9 : V58.61 ICD-10 : Z79.01 08/27/2016 Visit Diagnosis Plan: Dysuria Discus steven: Culture urine ICD-9 : 788.1 ICD-10 : R30.0 08/27/2016 Visit Diagnosis Plan: URI, ACUTE Dis cussion: Supportive care ICD-9 : 465.9 ICD-10 : J06.9 08/27/2016 Appointment: Kristine Brambila WPtel: [address] [place], [place] [phone] 08/26 confirmed`sl MEDICATION REVIEW 08/27/2016 Patient Education: Patient Medication Summary Completed 08/27/2016 Appointment: Kristine Brambila WPtel: [address] [place] [address] BP CHECK 07/08/2016 Patient Education: Patient Medication Summary Completed 07/08/2016 Appointment: Kristine Brambila WPtel: [address] [place], [place] [address] LAB 05/24/2016 Patient Education: Patient Medication Summary Completed 05/24/2016 Appointment: Kristine Brambila WPtel: [address] [place] [address] 04/24 will not be able to get [...] with culture results 04/23/2016 Appointment: Nayeli Anderson [address] [place] [address] ACUTE ILLNESS 04/23/2016 Patient Education: Patient Medication [...] add oral abx 04/17/2016 Appointment: Nayeli Anderson [address] [place] [address] ACUTE ILLNESS 04/17/2016 Patient Education: Patient Medication Summary Completed 04/17/2016 Patient Education: [facility] - Saving AutoInj - 18-64 - Dynamic Portal ID Completed 04/17/2016 Appointment: Kristine Brambila WPtel: [address] [place], [place] [address] LAB 04/11/2016 Patient Education: Patient Medication Summary [...] for migraines 03/12/2016 Appointment: Krist[facility]el[phone] [facility] 03/12 confirmed-sp FOLLOW UP 03/12/2016 Patient Education: Patient Medication Summary Completed 03/12/2016 Appointment: Kristine Brambila WPtel: [address] [facility] [facility] LAB 02/12/2016 Patient Education: Patient Medication Summary Completed 02/12/2016 Appointment: Krist[facility]ambila [facility]Ptel: [address] [facility] [facility] 02/01/2016 Patient Education: Patient Medication Summary Completed 02/01/2016 Appointment: Kristine Brambila [facility]Ptel: [address] [facility] [facility] 01/22/2016 Patient Education: Patient Medication Summary [...] improvement 11/10/2015 Appointment: Julee Slater WPtel: [address] [facility] ACUTE ILLNESS 11/10/2015 Patient Education: Patient Medication [...] 24 hours Supportive care otherwise 11/09/2015 Appointment: JustinNatachaNayeli [address] [facility] ACUTE ILLNESS 11/09/2015 Patient Education: Patient Medication Summary Completed 11/09/2015 Referral: Maximiliano Neves WPtel: [phone] [id number] [place] Spoke with Sally at Dr. Ta's offic e. Patient is scheduled for 10/16/15 at 3:15pm. Demographics and notes have been faxed. Patient has been informed. -sp Initi ated 10/16/2015 Visit Plan: Proceed with biopsy/rem oval of right posterior neck node Mammogram ordered--US of right axilla if needed 10/10/2015 Appointment: Kristine Brambila WPtel: [phone] [facility] 10/08 confirmed ~sl FOLLOW UP 10/10/2015 Patient Education: Patient Medication Summary Completed 10/10/2015 Patient Education: [facility] - Saving AutoInj - 18-64 - Dynamic Portal ID Completed 10/10/2015 Care Plan: MAMMOGRAM SCREENING LOINC : 02341-1 Pending 10/10/2015 Visit Plan: Labs ordered - peripher al smear, tsh, b12 - see order requisition Soft tissue US of neck ordered as well to further evaluate mass to right reported to be there over a year Antibiotic as well for URI that is not resolving - rapid strep was negative Diflucan given - Dr Brambila aware and ok Discussed INR with Dr Brambila - coumadin change as above Refill written for hydros - needs to keep appt with Dr Brambila for next week for intermodal customer service management of pain 10/02/2015 Visit Plan: Labs ordered - peripher al smear, tsh, b12 - see order requisition Soft tissue US of neck ordered as well to further evaluate mass to right reported to be there over a year Antibiotic as well for URI that is not resolving - rapid strep was negative Diflucan given - Dr Brambila aware and ok Discussed INR with Dr Brambila - coumadin change as above Refill written for hydros - needs to keep appt with Dr Brambila for next week for alf management of pain 10/02/2015 Appointment: Nayeli Anderson [address] [place] [address] ACUTE ILLNESS 10/02/2015 Patient Education: Patient Medication Summary Completed 10/02/2015 Patient Education: [facility] Jennifer Saving Auto[employer]j - 18-64 - Dynamic Portal ID Completed 10/02/2015 Care Plan: US EXAM OF HEAD AND NECK Pending 10/02/2015 Appointment: Kristine Brambila WPtel: [address] [place], [place] [phone] US LAB 09/29/2015 Patient Education: Patient Medication Summary Completed 09/29/2015 Appointment: Kristine Brambila WPtel: [address] [place], [place] [phone] US LAB 07/27/2015 Patient Education: Patient Medication Summary Completed 07/27/2015 Visit Plan: Trial of Savella Did no t tolerate lyrica Did not tolerate cymbalta 07/10/2015 Appointment: Kristine Brambila WPtel: [address] [place], [place] [phone] 07/10 appt confirmed cn FOLLOW UP 07/10/2015 Patient Education: Patient Medication Summary Completed 07/10/2015 Appointment: Kristine Brambila WPtel: [address] [place] [address] UA 06/30/2015 Patient Education: Patient Medication Summary Completed 06/30/2015 Visit Plan: Recommended Vitamin E o il topically bid to area of scar. Currently taking Amoxicillin for sinusitis. Recommend Flonase nasal spray 06/27/2015 Visit Plan: Recommended Vitamin E o il topically bid to area of scar. Currently taking Amoxicillin for sinusitis. Recommend Flonase nasal spray 06/27/2015 Appointment: Meli Hatch WPtel: [address] [place] [address] ACUTE ILLNESS 06/27/2015 Patient Education: Patient Medication Summary Completed 06/27/2015 Appointment: Meli Hatch WPtel: [address] [place] [address] 06/22/15 appt confirmed and she will dreacharisma garcia new insurance card ACUTE ILLNESS 06/26/2015 Appointment: Kristine Brambila WPtel: [address] [place] [address] LAB 06/21/2015 Patient Education: Patient Medication Summary Completed 06/21/2015 Visit Plan: Add cymbalta at 30mg da loli Repeat PT/INR in 2weeks Recheck 1mo Awaiting ID to reschedule 06/08/2015 Visit Plan: Add cymbalta at 30mg da loli Repeat PT/INR in 2weeks Recheck 1mo Awaiting ID to reschedule 06/08/2015 Appointment: Kristine Brambila WPtel: [address] [place] [address] 06/07 lm ~sl 06/08 confirmed ~sl FOLLOW UP 06/08/2015 Patient Education: Patient Medication Summary Completed 06/08/2015 Patient Education: [facility] - Saving [employer]j - Cymbalta - 18-64 - Dynamic Portal ID Completed 06/08/2015 Patient Education: [facility] - Saving AutoInj - 18-64 - Dynamic Portal ID Completed 06/08/2015 Appointment: Kristine Brambila WPtel: Formerly named [facility] [address] UA 05/31/2015 Patient Education: Patient Medication Summary Completed 05/31/2015 Visit Plan: Check PT/INR today Stop ped Lyrica due to fluid retention Has appt. scheduled at [facility] with hematology and infectious disease 06/08 Follow-up appt. in 2 weeks following appt. at . 05/24/2015 Visit Plan: Check PT/INR today Stop ped Lyrica due to fluid retention Has appt. scheduled at [facility] with hematology and infectious disease 06/08 Follow-up appt. in 2 weeks following appt. at . 05/24/2015 Appointment: HoldenAlejandrosa Swift WPtel: [phone] [id number] NEW PATIENT 05/24/2015 Patient Education: Patient Medication Summary Completed 05/24/2015 Patient Education: [facility] - Saving AutoInj - 18-64 - Dynamic Portal ID Completed 05/24/2015 Referral: Annamarie Melo WPtel: [facility] [address] [id number] Referral Initiated Instructions Comment . Rapid strep [...] to fluid retention Has appt. scheduled at [facility] with hematology and infectious disease 06/08 Follow-up appt. in 2 weeks following appt. at . . Check PT/INR today Stopped Lyrica due to fluid retention Has appt. scheduled at [facility] with hematology and infectious disease 06/08 [...] with Dr Brambila for next week for alf management of pain . Labs ordered - [...] with Dr Brambila for next week for intermodal customer service management of pain . Recommended Vitami n [...]
--- OUTSIDE RECORDS SUMMARY | 2020-01-28 13:37 | XMS REPORT | CCD ---
Author Author Heydi Hatch APRN Organization [facility] Address [address] [place] [address] Phone Care Team Providers Care Butter Fat Tester Name Role Phone Kristine Brambila D.O., PP Unavailable CCM Unavailable Summary Purpose Interface Exchange Insurance Providers Payer name Policy type / Coverage type Covered republican ID Effective Begin Date Effective End Date Blue Cross Blue Shield Blue Cross/Bl ue Shield [id number] 2018 Un known Family History Family History data not found Social History Social History Element Codes Description Effective Dates Tobacco history SNOMED CT: 01117800 Current every day smoker 06/08/2015 Allergies, Adverse [...] ICD-9: V58.83 ICD-10: Z51.81 Active 01/21/2016 Unknown Epistaxis ICD-9: 784.7 ICD-10: R04.0 Active [...] ICD-9: 786.2 ICD-10: R05 Active 07/21/2017 Unknown 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 ICD-9: V58.61 ICD-10: [...] 02/10/2017 Unknown Pelvic and perineal pain ICD-9: [id number] ICD-10: R10.2 Active 02/10/2017 Unknown Cervicalgia ICD-9: [...] monitoring ICD-9: V58.83 ICD-10: Z51.81 01/21/2016 Active Epistaxis ICD-9: 784.7 ICD-10: R04.0 02/17/2019 [...] COUGH ICD-9: 786.2 ICD-10: R05 07/21/2017 Active 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 ICD-9: V58.61 ICD-10: [...] 02/10/2017 Active Pelvic and perineal pain ICD-9: [id number] ICD-10: R10.2 02/10/2017 Active Cervicalgia ICD-9: 723.1 [...] Date Stop Date Sta tus Fill Instructions Vistaril 25 mg capsule RxNorm: 506444 Capsule(s) 1 Capsule(s) PO TID as needed for anxiety 03/02/2019 05/30/2019 Active cyclobenzaprine 10 m g tablet RxNorm: 521608 Tablet(s) 1 TABLET(S) PO QD NEEDED 03/02/2019 08/28/2019 Ac tive hydrocodone 10 mg-ac etaminophen 325 mg tablet RxNorm: 681817 1 Tablet(s) PO Q4-6H as needed for pain 03/02/2019 No Stop Date Active Vitamin D2 50,000 un it capsule RxNorm: 3538858 1 CAPSULE(S) PO QW 02/26/2019 08/24/2019 Active warfarin 5 mg tablet RxNorm: 883423 1 Tablet(s) PO QD 02/17/2019 04/17/2019 Active acetazolamide 125 mg tablet RxNorm: 751892 1 TABLET(S) PO BID 02/15/2019 04/15/2019 Active cholestyramine (with sugar) 4 gram oral powder RxNorm: 163166 1 UNIT DOSE PO QD 02/15/2019 04/15/2019 Ac tive penicillin V potassi um 500 mg tablet RxNorm: 103124 1 Tablet(s) PO BID 02/10/2019 02/09/2019 In active penicillin V potassi um 500 mg tablet RxNorm: 825364 1 Tablet(s) PO BID 02/10/2019 02/16/2019 In active Diflucan 150 mg tablet RxNorm: 376310 TABLET(S) 1 TABLET(S) PO QW NEEDED 02/08/2019 No Stop Date Active Anusol-HC 25 mg rect al suppository RxNorm: 0036610 1 Suppository RTL QD as needed 02/08/2019 03/09/2019 Ac tive hydrocodone 10 mg-ac etaminophen 325 mg tablet RxNorm: 876888 1 Tablet(s) PO Q4-6H as needed for pain 02/01/2019 No Stop Date Active hydrocodone 10 mg-ac etaminophen 325 mg tablet RxNorm: 756920 1 Tablet(s) PO Q4-6H as needed for pain 02/01/2019 03/01/2019 Inactive Diflucan 150 mg tablet RxNorm: 640822 Tablet(s) TABLET(S) 1 TABLET(S) PO QW NEEDED 01/28/2019 No Stop Date Active Vistaril 25 mg capsule RxNorm: 613529 1 Capsule(s) PO TID 01/27/2019 07/25/2019 Active ProAir HFA 90 mcg/ac tuation aerosol inhaler RxNorm: 486828 2 Puff(s) INH Q4H as needed 01/20/2019 No Stop Date Active Tessalon Perles 100 mg capsule RxNorm: 762410 1 Capsule(s) PO TID a s needed for cough 01/20/2019 No Stop Date Active doxycycline hyclate 100 mg capsule RxNorm: 9038125 1 Capsule(s) PO BID 01/20/2019 01/19/2019 In active doxycycline hyclate 100 mg capsule RxNorm: 4850431 1 Capsule(s) PO BID 01/20/2019 01/26/2019 In active Coumadin 5 mg tablet RxNorm: 342914 1 Tablet(s) PO QD (on Mon, , Fri, , Fri and Sun) 01/05/2019 06/09/2019 Active Generic For:COUMADIN 5MG TAB 05/25/2018 3:20:45 PM N O T I C E Last quantity doesn't match original quantity amoxicillin 500 mg c apsule RxNorm: 929541 1 Capsule(s) PO BID 01/05/2019 01/14/2019 Inactive amoxicillin 500 mg c apsule RxNorm: 039209 1 Capsule(s) PO BID 01/05/2019 01/04/2019 Inactive hydrocodone 10 mg-ac etaminophen 325 mg tablet RxNorm: 947998 1 Tablet(s) PO Q4-6H as needed for pain 01/01/2019 01/31/2019 Inactive Coumadin 5 mg tablet RxNorm: 226935 Tablet(s) TAKE 1 TABLET(S) BY MOUTH FRI, FRI, FRI, Friday12/23/2018 01/04/2019 Inactive Generic For:COUMADIN 5MG TA B 05/25/2018 3:20:45 PM N O T I C E Last quantity doesn't match original quantity Diflucan 150 mg tablet RxNorm: 430222 Tablet(s) TABLET(S) 1 TABLET(S) PO QW NEEDED 12/23/2018 01/27/2019 Inactive cyclobenzaprine 10 m g tablet RxNorm: 057887 1 TABLET(S) PO QD NEEDED 12/23/2018 03/01/2019 In active Vitamin D2 50,000 un it capsule RxNorm: 6984097 1 Capsule(s) PO QW 12/04/2018 02/25/2019 Inactive Medrol (Juan Francisco) 4 mg ta blets in a dose pack RxNorm: 697321 Tablet(s) PO as [facility] 12/04/2018 12/03/2018 In active Vitamin D2 50,000 un it capsule RxNorm: 9012272 1 Capsule(s) PO QW 12/04/2018 12/03/2018 Inactive Medrol (Juan Francisco) 4 mg ta blets in a dose pack RxNorm: 503428 Tablet(s) PO as [facility] 12/04/2018 01/19/2019 In active Zithromax Z-Juan Francisco 250 mg tablet RxNorm: 558017 Tablet(s) PO take as directed 12/02/2018 02/16/2019 In active Coumadin 5 mg tablet RxNorm: 454406 Tablet(s) TAKE 1 TABLET(S) BY MOUTH FRI, FRI, FRI, Friday11/30/2018 12/22/2018 Inactive Generic For:COUMADIN 5MG TA B 05/25/2018 3:20:45 PM N O T I C E Last quantity doesn't match original quantity Vistaril 25 mg capsule RxNorm: 562797 Capsule(s) 1 Capsule(s) PO TID as needed for anxiety 11/30/2018 02/27/2019 Inactive Diflucan 150 mg tablet RxNorm: 220797 Tablet(s) TABLET(S) 1 TABLET(S) PO QW NEEDED 11/26/2018 12/22/2018 Inactive cholestyramine (with sugar) 4 gram oral powder RxNorm: 216310 1 UNIT DOSE PO QD 11/24/2018 02/14/2019 In active acetazolamide 125 mg tablet RxNorm: 660065 1 Tablet(s) PO BID 11/24/2018 02/14/2019 Inactive cyclobenzaprine 10 m g tablet RxNorm: 973181 1 Tablet(s) PO QD as needed 11/17/2018 12/22/2018 In active hydrocodone 10 mg-ac etaminophen 325 mg tablet RxNorm: 052281 1 Tablet(s) PO Q4-6H as needed for pain 11/05/2018 01/31/2019 Inactive acetazolamide 125 mg tablet RxNorm: 566344 1 TABLET(S) PO BID 10/26/2018 11/23/2018 Inactive cholestyramine (with sugar) 4 gram oral powder RxNorm: 915224 1 UNIT DOSE PO QD 10/26/2018 11/23/2018 In active Coumadin 5 mg tablet RxNorm: 143597 TAKE 1 TABLET(S) BY MOUTH FRI, FRI, FRI, Friday10/26/2018 11/29/2018 Inactive Generic For:COUMADIN 5MG TAB 05/25/2018 3:20:45 PM N O T I C E Last quantity doesn't match original quantity Diflucan 150 mg tablet RxNorm: 933191 TABLET(S) 1 TABLET(S) PO QW NEEDED 10/26/2018 11/25/2018 In active hydrocodone 10 mg-ac etaminophen 325 mg tablet RxNorm: 661528 1 Tablet(s) PO Q4-6H as needed for pain 10/08/2018 11/04/2018 Inactive acetazolamide 125 mg tablet RxNorm: 660154 1 Tablet(s) PO BID 09/24/2018 10/23/2018 Inactive Coumadin 5 mg tablet RxNorm: 174864 TAKE 1 TABLET(S) BY MOUTH FRI, FRI, FRI, Friday09/24/2018 10/25/2018 Inactive Generic For:COUMADIN 5MG TAB 05/25/2018 3:20:45 PM N O T I C E Last quantity doesn't match original quantity Diflucan 150 mg tablet RxNorm: 781993 Tablet(s) 1 Tablet(s) PO QW as needed 09/24/2018 10/25/2018 In active cyclobenzaprine 10 m g tablet RxNorm: 161985 1 Tablet(s) PO QD as needed 09/24/2018 11/16/2018 In active Vistaril 25 mg capsule RxNorm: 753175 1 Capsule(s) PO TID as needed for anxiet y 09/24/2018 11/29/2018 In active cholestyramine (with sugar) 4 gram oral powder RxNorm: 915919 1 Unit Dose PO QD 09/24/2018 10/23/2018 In active Pyridium 200 mg tablet RxNorm: 2728460 1 Tablet(s) PO TID 09/10/2018 09/19/2018 Inactive Pyridium 200 mg tablet RxNorm: 4020567 1 Tablet(s) PO TID 09/10/2018 09/09/2018 Inactive hydrocodone 10 mg-ac etaminophen 325 mg tablet RxNorm: 651294 1 Tablet(s) PO Q4-6H as needed for pain 09/08/2018 10/07/2018 Inactive cefdinir 300 mg capsule RxNorm: 595987 1 Capsule(s) PO BID 09/08/2018 09/21/2018 Inactive hydrocodone 10 mg-ac etaminophen 325 mg tablet RxNorm: 449139 1 Tablet(s) PO Q4-6H as needed for pain 08/13/2018 09/07/2018 Inactive cyclobenzaprine 10 m g tablet RxNorm: 457913 1 Tablet(s) PO QD as needed 07/23/2018 09/23/2018 In active Diflucan 150 mg tablet RxNorm: 316697 Tablet(s) 1 Tablet(s) PO QW as needed 07/23/2018 09/23/2018 In active Ciprodex 0.3 %-0.1 % ear drops,suspension RxNorm: 524873 4 Drop(s) left otic ( ear) BID 07/23/2018 07/29/2018 Inactive hydrocodone 10 mg-ac etaminophen 325 mg tablet RxNorm: 226144 1 Tablet(s) PO Q4-6H as needed for pain 07/16/2018 08/12/2018 Inactive penicillin V potassi um 500 mg tablet RxNorm: 818598 1 Tablet(s) PO Q6H 07/08/2018 07/17/2018 In active cyclobenzaprine 10 m g tablet RxNorm: 318964 1 Tablet(s) PO QD as needed 06/22/2018 07/22/2018 In active Vistaril 25 mg capsule RxNorm: 434538 1 Capsule(s) PO TID as needed for anxiet y 06/22/2018 09/23/2018 In active cholestyramine (with sugar) 4 gram oral powder RxNorm: 066067 1 Unit Dose PO QD 06/22/2018 09/23/2018 In active hydrocodone 10 mg-ac etaminophen 325 mg tablet RxNorm: 310258 1 Tablet(s) PO Q4-6H as needed for pain 06/17/2018 07/15/2018 Inactive cefdinir 300 mg capsule RxNorm: 091046 1 Capsule(s) PO BID 06/02/2018 06/11/2018 Inactive Diflucan 150 mg tablet RxNorm: 898236 Tablet(s) 1 Tablet(s) PO QW as needed 06/02/2018 07/22/2018 In active Coumadin 5 mg tablet RxNorm: 654155 TAKE 1 TABLET(S) BY MOUTH MON, FRI, FRI, Friday05/25/2018 07/15/2018 Inactive Generic For:COUMADIN 5MG TAB 05/25/2018 3:20:45 PM N O T I C E Last quantity doesn't match original quantity Imitrex 50 mg tablet RxNorm: 536101 Tablet(s) 1 Tablet(s) PO at headache. re peat in 2 hours if no relief. no more than 2 tabs per day 05/19/2018 No Stop Date Active cholestyramine (with sugar) 4 gram oral powder RxNorm: 600869 1 Unit Dose PO QD 05/19/2018 11/14/2018 In active Vistaril 25 mg capsule RxNorm: 397483 1 Capsule(s) PO TID 05/19/2018 11/14/2018 Inactive Coumadin 5 mg tablet RxNorm: 171072 Tablet(s) TAKE 1 TABLET(S) BY MOUTH FRI, FRI, FRI, Friday05/19/2018 05/24/2018 Inactive Generic For:COUMADIN 5MG TA B N O T I C E Last quantity doesn't match original quantity acetazolamide 125 mg tablet RxNorm: 715892 1 Tablet(s) PO BID 05/19/2018 09/23/2018 Inactive cyclobenzaprine 10 m g tablet RxNorm: 076956 1 Tablet(s) PO QD as needed 05/19/2018 11/17/2018 In active Coumadin 7.5 mg tablet RxNorm: 708385 1 Tablet(s) PO QD , Th, 05/19/2018 01/04/2019 In active ketorolac 10 mg tablet RxNorm: 677876 1 Tablet(s) PO QHS as needed 05/11/2018 No Stop Date Active promethazine 12.5 mg tablet RxNorm: 146528 1 Tablet(s) PO Q6H as needed 04/23/2018 04/22/2018 In active acetazolamide 125 mg tablet RxNorm: 681068 1 Tablet(s) PO BID 04/23/2018 05/18/2018 Inactive Coumadin 5 mg tablet RxNorm: 156885 TAKE 1 TABLET(S) BY MOUTH FRI, FRI, FRI, Friday04/23/2018 05/18/2018 Inactive Generic For:COUMADIN 5MG TAB N O T I C E Last quantity doesn't match original quantity Imitrex 50 mg tablet RxNorm: 700011 1 Tablet(s) PO at headache. repeat in 2 hours if no relief. no more than 2 tabs per day 04/23/2018 05/18/2018 Inactive cyclobenzaprine 10 m g tablet RxNorm: 539485 1 Tablet(s) PO QD as needed 04/23/2018 05/18/2018 In active clindamycin HCl 300 mg capsule RxNorm: 823554 1 Capsule(s) PO TID 04/02/2018 04/11/2018 Inactive hydrocodone 10 mg-ac etaminophen 325 mg tablet RxNorm: 091782 1 Tablet(s) PO Q4-6H as needed for pain 03/24/2018 06/16/2018 Inactive promethazine 12.5 mg tablet RxNorm: 896670 1 Tablet(s) PO Q6H 03/23/2018 04/23/2018 Inactive Imitrex 50 mg tablet RxNorm: 276394 1 Tablet(s) PO at headache. repeat in 2 hours if no relief. no more than 2 tabs per day 03/23/2018 04/22/2018 Inactive Diflucan 150 mg tablet RxNorm: 681903 1 Tablet(s) PO QW as needed 03/23/2018 06/01/2018 Inactive Coumadin 5 mg tablet RxNorm: 438112 Tablet(s) 1 Tablet(s) PO Mon, Wed, Fri, Sun 03/23/2018 04/22/2018 In active Imitrex 100 mg tablet RxNorm: 605597 Tablet(s) PO take one tablet at sign of headache and repeat in 2 hours if ineffective 03/16/2018 04/01/2018 Inactive ondansetron HCl 4 mg tablet RxNorm: 577536 1 Tablet(s) PO Q4H as needed for nausea 02/24/2018 04/01/2018 In active hydrocodone 10 mg-ac etaminophen 325 mg tablet RxNorm: 617353 1 Tablet(s) PO Q4-6H as needed for pain 02/24/2018 03/23/2018 Inactive Coumadin 5 mg tablet RxNorm: 698606 Tablet(s) 1 Tablet(s) PO Mon, Wed, Fri, Sun 02/20/2018 03/22/2018 In active promethazine 12.5 mg tablet RxNorm: 099218 1 Tablet(s) PO Q6H 02/20/2018 03/22/2018 Inactive Pepcid 40 mg tablet RxNorm: 376544 1 Tablet(s) PO BID for stomach 02/16/2018 03/17/2018 In active Flagyl 500 mg tablet RxNorm: 809964 1 Tablet(s) PO TID 02/16/2018 02/25/2018 Inactive Imitrex 50 mg tablet RxNorm: 988912 1 Tablet(s) PO at headache. repeat in 2 hours if no relief. no more than 2 tabs per day 01/27/2018 03/15/2018 Inactive Coumadin 5 mg tablet RxNorm: 997169 1 Tablet(s) PO Mon, Wed, Fri, Sun 01/27/2018 02/20/2018 In active amoxicillin 875 mg t ablet RxNorm: 034957 1 Tablet(s) PO BID 01/26/2018 02/04/2018 Inactive Imitrex 50 mg tablet RxNorm: 049971 1 Tablet(s) PO at headache. repeat in 2 hours if no relief. no more than 2 tabs per day 01/26/2018 03/22/2018 Inactive cyclobenzaprine 10 m g tablet RxNorm: 398016 1 Tablet(s) PO QD as needed 01/23/2018 03/23/2018 In active promethazine 12.5 mg tablet RxNorm: 452909 1 Tablet(s) PO Q6H 01/23/2018 02/19/2018 Inactive Diflucan 150 mg tablet RxNorm: 068446 1 Tablet(s) PO QW as needed 01/22/2018 03/22/2018 Inactive acetazolamide 125 mg tablet RxNorm: 221455 1 Tablet(s) PO BID 01/22/2018 04/21/2018 Inactive Imitrex 50 mg tablet RxNorm: 629815 1 Tablet(s) PO at headache. repeat in 2 hours if no relief. no more than 2 tabs per day 01/02/2018 01/25/2018 Inactive Ciprodex 0.3 %-0.1 % ear drops,suspension RxNorm: 776221 4 Drop(s) otic (ear) BID 01/01/2018 01/07/2018 In active Coumadin 7.5 mg tablet RxNorm: 784362 1 Tablet(s) PO QD Tu, Th, 12/29/2017 05/18/2018 In active Coumadin 5 mg tablet RxNorm: 921302 1 Tablet(s) PO Mon, Wed, Fri, Sun 12/29/2017 01/26/2018 In active cyclobenzaprine 10 m g tablet RxNorm: 185661 1 Tablet(s) PO QD as needed 12/29/2017 01/22/2018 In active clindamycin HCl 300 mg capsule RxNorm: 291873 1 Capsule(s) PO TID 12/26/2017 12/25/2017 Inactive Imitrex 50 mg tablet RxNorm: 985256 1 Tablet(s) PO at headache. repeat in 2 hours if no relief. no more than 2 tabs per day 12/26/2017 01/01/2018 Inactive clindamycin HCl 300 mg capsule RxNorm: 614316 1 Capsule(s) PO TID 12/26/2017 01/04/2018 Inactive Zithromax Z-Juan Francisco 250 mg tablet RxNorm: 188841 Tablet(s) PO take as directed 12/25/2017 12/25/2017 In active promethazine 12.5 mg tablet RxNorm: 752527 1 Tablet(s) PO Q6H 12/25/2017 01/22/2018 Inactive clindamycin HCl 300 mg capsule RxNorm: 079399 1 Capsule(s) PO TID 12/11/2017 12/17/2017 Inactive Vistaril 25 mg capsule RxNorm: 308091 1 Capsule(s) PO TID as needed for anxiet y 12/04/2017 05/18/2018 In active cholestyramine (with sugar) 4 gram oral powder RxNorm: 863737 1 Unit Dose PO QD 12/04/2017 05/18/2018 In active Coumadin 7.5 mg tablet RxNorm: 555297 1 Tablet(s) PO QD 12/04/2017 12/28/2017 Inactive Coumadin 5 mg tablet RxNorm: 857530 1 Tablet(s) PO Friday through Friday12/04/2017 12/28/2017 In active hydrocodone 10 mg-ac etaminophen 325 mg tablet RxNorm: 727246 1 Tablet(s) PO Q4-6H as needed for pain 12/01/2017 02/23/2018 Inactive hydrocodone 10 mg-ac etaminophen 325 mg tablet RxNorm: 715152 1 Tablet(s) PO Q4-6H as needed for pain 11/03/2017 11/30/2017 Inactive cyclobenzaprine 10 m g tablet RxNorm: 968468 1 Tablet(s) PO QD as needed 10/30/2017 12/28/2017 In active cholestyramine (with sugar) 4 gram oral powder RxNorm: 355228 1 Unit Dose PO QD 10/30/2017 11/28/2017 In active amoxicillin 875 mg t ablet RxNorm: 744592 1 Tablet(s) PO BID 10/08/2017 10/07/2017 Inactive amoxicillin 875 mg t ablet RxNorm: 255684 1 Tablet(s) PO BID 10/08/2017 10/17/2017 Inactive penicillin V potassi um 500 mg tablet RxNorm: 034137 1 Tablet(s) PO BID 10/06/2017 10/07/2017 In active hydrocodone 10 mg-ac etaminophen 325 mg tablet RxNorm: 368960 1 Tablet(s) PO Q4-6H as needed for pain 10/06/2017 11/02/2017 Inactive hydrocodone 10 mg-ac etaminophen 325 mg tablet RxNorm: 248024 1 Tablet(s) PO Q4-6H as needed for pain 10/06/2017 12/31/2018 Inactive Vigamox 0.5 % eye drops RxNorm: 403734 1 Drop(s) ophthalmic (eye) TID ONLY ADMI NISTER IF INFECTION 10/03/2017 10/02/2017 Inactive Vigamox 0.5 % eye drops RxNorm: 801881 1 Drop(s) ophthalmic (eye) TID ONLY ADMI NISTER IF INFECTION 10/03/2017 10/09/2017 Inactive cholestyramine (with sugar) 4 gram oral powder RxNorm: 998571 1 Unit Dose PO QD 09/23/2017 10/30/2017 In active acetazolamide 125 mg tablet RxNorm: 821690 1 Tablet(s) PO BID 09/23/2017 12/21/2017 Inactive Coumadin 5 mg tablet RxNorm: 434461 1 Tablet(s) PO QD FRIDAY THROUGH Friday09/17/2017 11/04/2017 In active mupirocin 2 % topica l ointment RxNorm: 722093 1 Application TOP TID 09/10/2017 11/04/2017 Inactive hydrocodone 10 mg-ac etaminophen 325 mg tablet RxNorm: 847014 1 Tablet(s) PO Q4-6H as needed for pain 09/08/2017 10/05/2017 Inactive Questran 4 gram powd er for susp in a packet RxNorm: 317992 MIX ONE PACKET IN 6 O UNCES OF APPLE SAUCE OR OTHER SOFT FOOD AND EAT ONCE DAILY 09/02/2017 11/04/2017 Inactive Diflucan 150 mg tablet RxNorm: 893243 1 Tablet(s) PO QW as needed 08/14/2017 01/21/2018 Inactive hydrocodone 10 mg-ac etaminophen 325 mg tablet RxNorm: 339088 1 Tablet(s) PO Q4-6H as needed for pain 08/11/2017 09/07/2017 Inactive Tamiflu 75 mg capsule RxNorm: 708654 1 Capsule(s) PO QD 08/11/2017 08/10/2017 Inactive Tamiflu 75 mg capsule RxNorm: 623312 1 Capsule(s) PO QD 08/11/2017 08/20/2017 Inactive Coumadin 5 mg tablet RxNorm: 798830 1 Tablet(s) PO QD FRIDAY THROUGH Friday07/22/2017 09/16/2017 In active Coumadin 5 mg tablet RxNorm: 701277 TAKE ONE TABLET BY MOUTH ONCE DAILY THROUGH Friday07/16/2017 07/21/2017 Inactive cyclobenzaprine 10 m g tablet RxNorm: 394087 1 Tablet(s) PO QD as needed 07/15/2017 10/30/2017 In active hydrocodone 10 mg-ac etaminophen 325 mg tablet RxNorm: 531942 1 Tablet(s) PO Q4-6H as needed for pain 07/14/2017 08/10/2017 Inactive warfarin 5 mg tablet RxNorm: 522374 1 Tablet(s) PO Fri [facility] 06/18/2017 02/16/2019 Inactive Questran Light 4 gra m powder for susp in a packet RxNorm: 6650417 1 PO QD 06/18/2017 11/04/2017 In active cyclobenzaprine 10 m g tablet RxNorm: 067755 1 Tablet(s) PO QD as needed 06/18/2017 07/14/2017 In active hydrocodone 10 mg-ac etaminophen 325 mg tablet RxNorm: 823052 1 Tablet(s) PO Q4-6H as needed for pain 06/18/2017 07/13/2017 Inactive Lunesta 1 mg tablet RxNorm: 459072 1 Tablet(s) PO QHS as needed 05/27/2017 06/25/2017 Inactive Zithromax Z-Juan Francisco 250 mg tablet RxNorm: 104862 1 Tablet(s) PO Take a s directed 05/27/2017 11/04/2017 In active ProAir HFA 90 mcg/ac tuation aerosol inhaler RxNorm: 037873 2 Puff(s) INH Q4H 05/27/2017 01/19/2019 In active ProAir HFA 90 mcg/ac tuation aerosol inhaler RxNorm: 526090 2 Puff(s) INH Q4H 05/27/2017 05/26/2017 In active promethazine 6.25 mg -codeine 10 mg/5 mL syrup RxNorm: 585428 5 Milliliter(s) PO Q4 H as needed 05/27/2017 11/04/2017 Inactive Diflucan 150 mg tablet RxNorm: 905170 1 Tablet(s) PO QW as needed 05/26/2017 05/25/2017 Inactive cyclobenzaprine 10 m g tablet RxNorm: 512582 1 Tablet(s) PO QD as needed 05/20/2017 06/18/2017 In active Lunesta 2 mg tablet RxNorm: 019842 1 Tablet(s) PO QHS 05/20/2017 05/27/2017 Inactive Zithromax Z-Juan Francisco 250 mg tablet RxNorm: 319361 Tablet(s) PO As Direc liane 05/12/2017 05/19/2017 In active cyclobenzaprine 5 mg tablet RxNorm: 878579 1 Tablet(s) PO QPM 03/28/2017 05/19/2017 Inactive Vistaril 25 mg capsule RxNorm: 225706 1 Capsule(s) PO TID as needed for anxiet y 03/28/2017 09/23/2017 In active Questran 4 gram powd er for susp in a packet RxNorm: 458645 1 Unit(s) PO QD 03/06/2017 06/18/2017 In active Cipro 500 mg tablet RxNorm: 752522 1 Tablet(s) PO BID 02/27/2017 02/26/2017 Inactive Pyridium 200 mg tablet RxNorm: 1919455 1 Tablet(s) PO TID for bladder spasms 02/27/2017 03/31/2017 In active Cipro 500 mg tablet RxNorm: 207665 1 Tablet(s) PO BID 02/27/2017 03/05/2017 Inactive Levsin 0.125 mg tablet RxNorm: 8098067 1 Tablet(s) PO QID as needed for spasm 02/25/2017 11/04/2017 In active tamsulosin 0.4 mg ca psule RxNorm: 362551 1 Capsule(s) PO QPM 02/25/2017 03/26/2017 Inactive tamsulosin 0.4 mg ca psule RxNorm: 886644 1 Capsule(s) PO QPM 02/25/2017 02/24/2017 Inactive Pyridium 100 mg tablet RxNorm: 3857604 1 Tablet(s) PO TID as needed 02/21/2017 03/31/2017 In active acetazolamide 125 mg tablet RxNorm: 347917 1 Tablet(s) PO BID 02/07/2017 09/23/2017 Inactive Questran 4 gram powd er for susp in a packet RxNorm: 742020 1 Unit(s) PO QD 02/06/2017 03/06/2017 In active cyclobenzaprine 5 mg tablet RxNorm: 997932 1 Tablet(s) PO QPM 02/05/2017 03/27/2017 Inactive BuSpar 5 mg tablet RxNorm: 741448 1 Tablet(s) PO BID 02/03/2017 03/31/2017 Inactive Diflucan 150 mg tablet RxNorm: 284988 1 Tablet(s) PO QW as needed 01/15/2017 05/26/2017 Inactive Valtrex 1 gram tablet RxNorm: 839991 1 Tablet(s) PO TID 01/13/2017 01/19/2017 Inactive Vistaril 25 mg capsule RxNorm: 796342 1 Capsule(s) PO TID as needed for anxiet y 01/13/2017 03/27/2017 In active hydrocodone 10 mg-ac etaminophen 325 mg tablet RxNorm: 972800 1 Tablet(s) PO Q4-6H as needed for pain 01/13/2017 06/17/2017 Inactive Questran 4 gram powd er for susp in a packet RxNorm: 161592 1 Unit(s) PO QD 01/13/2017 09/23/2017 In active acetazolamide 125 mg tablet RxNorm: 209370 1 Tablet(s) PO BID 01/13/2017 02/06/2017 Inactive methotrexate (PF) 20 mg/0.4 mL subcutaneous auto-injector RxNorm: 1431639 Milliliter(s) SQ QW 12/26/2016 01/05/2017 Inactive Compazine 10 mg tablet RxNorm: 344200 1 Tablet(s) PO TID as needed for nausea 12/18/2016 11/04/2017 In active hydrocodone 10 mg-ac etaminophen 325 mg tablet RxNorm: 589706 1 Tablet(s) PO Q4-6H as needed for pain 12/17/2016 01/12/2017 Inactive Questran 4 gram powd er for susp in a packet RxNorm: 205518 1 Unit(s) PO QD 12/17/2016 01/13/2017 In active cyclobenzaprine 5 mg tablet RxNorm: 038993 1 Tablet(s) PO QPM 12/17/2016 02/05/2017 Inactive Questran Light 4 gra m powder for susp in a packet RxNorm: 8786827 1 PO QD 11/29/2016 06/17/2017 In active Zofran ODT 4 mg disi ntegrating tablet RxNorm: 254141 1 Tablet(s) PO Q4H as needed for nausea 11/29/2016 12/17/2016 Inactive methotrexate sodium 2.5 mg tablet RxNorm: 284500 4 Tablet(s) PO week 1 then 5 tablets po week 2 then 6 tablets weekly 11/27/2016 12/25/2016 Inactive warfarin 7.5 mg tablet RxNorm: 995830 1 Tablet(s) PO three times weekly 11/14/2016 03/31/2017 In active warfarin 7.5 mg tablet RxNorm: 039573 1 Tablet(s) PO three times weekly 11/13/2016 11/13/2016 In active Diflucan 150 mg tablet RxNorm: 420747 1 Tablet(s) PO QW as needed 11/05/2016 01/14/2017 Inactive Vistaril 25 mg capsule RxNorm: 322258 1 Capsule(s) PO TID as needed for anxiet y 11/04/2016 11/03/2016 In active Coumadin 5 mg tablet RxNorm: 536685 1 Tablet(s) PO Friday through Friday11/04/2016 06/18/2017 In active acetazolamide 125 mg tablet RxNorm: 355894 1 Tablet(s) PO BID 11/04/2016 01/13/2017 Inactive sumatriptan 100 mg t ablet RxNorm: 575370 1 Tablet(s) PO at hea dache onset. May repeat in 2 hours if headache remains 11/04/2016 11/04/2017 Inactive Vistaril 25 mg capsule RxNorm: 717032 1 Capsule(s) PO TID as needed for anxiet y 11/04/2016 01/12/2017 In active hydrocodone 10 mg-ac etaminophen 325 mg tablet RxNorm: 506328 1 Tablet(s) PO Q4-6H as needed for pain 11/04/2016 12/16/2016 Inactive Coumadin 5 mg tablet RxNorm: 029342 TAKE ONE TABLET BY MOUTH ON FRI., FRI., FRI., AND FRI., AND TAKE ONE AND ONE-HALF TABLETS FRI., ., AND 10/16/2016 10/25/2016 In active Coumadin 5 mg tablet RxNorm: 414325 1 Tablet(s) PO Friday through Friday10/15/2016 11/03/2016 In active hydrocodone 10 mg-ac etaminophen 325 mg tablet RxNorm: 470816 1 Tablet(s) PO Q4-6H as needed for pain 10/14/2016 11/03/2016 Inactive hydrocodone 10 mg-ac etaminophen 325 mg tablet RxNorm: 531409 1 Tablet(s) PO Q4-6H as needed for pain 09/20/2016 10/13/2016 Inactive warfarin 7.5 mg tablet RxNorm: 497881 1 Tablet(s) PO three times weekly 09/20/2016 11/12/2016 In active Diflucan 150 mg tablet RxNorm: 041064 1 Tablet(s) PO QW as needed 08/20/2016 11/04/2016 Inactive acetazolamide 125 mg tablet RxNorm: 932794 1 Tablet(s) PO BID 08/20/2016 11/04/2016 Inactive Diflucan 150 mg tablet RxNorm: 450774 1 Tablet(s) PO QW as needed 08/20/2016 08/19/2016 Inactive Vistaril 25 mg capsule RxNorm: 091156 Capsule(s) TAKE ONE CAPSULE BY MOUTH THR EE TIMES DAILY NEEDED FOR ANXIETY 08/19/2016 11/04/2016 Inactive hydrocodone 10 mg-ac etaminophen 325 mg tablet RxNorm: 508679 1 Tablet(s) PO Q4-6H as needed for pain 08/05/2016 09/19/2016 Inactive Diflucan 150 mg tablet RxNorm: 907336 1 Tablet(s) PO QW as needed 07/19/2016 08/19/2016 Inactive tizanidine 4 mg tablet RxNorm: 415636 1-2 Tablet(s) PO QHS as needed for muscl e spasm and sleep 06/03/2016 06/10/2016 Inactive Questran Light 4 gra m powder for susp in a packet RxNorm: 8436414 1 PO QD 05/14/2016 08/11/2016 In active Macrobid 100 mg capsule RxNorm: 065139 1 Capsule(s) PO BID 04/23/2016 05/02/2016 Inactive mupirocin 2 % topica l ointment RxNorm: 264241 Apply topically to af fected area 2-3 times daily 04/17/2016 07/07/2016 Inactive Vistaril 25 mg capsule RxNorm: 014187 TAKE ONE CAPSULE BY MOUTH THREE TIMES DA LOLI NEEDED FOR ANXIETY 04/17/2016 11/04/2016 Inactive Diflucan 150 mg tablet RxNorm: 742420 1 Tablet(s) PO QW as needed 04/16/2016 07/18/2016 Inactive cyclobenzaprine 5 mg tablet RxNorm: 479877 TAKE ONE TABLET BY [facility] ONCE DAILY IN THE EVENING 03/25/2016 12/17/2016 Inactive Pyridium 100 mg tablet RxNorm: 8960020 1 Tablet(s) PO TID as needed 03/20/2016 03/19/2016 In active Diflucan 150 mg tablet RxNorm: 976465 1 Tablet(s) PO QW as needed 03/20/2016 04/15/2016 Inactive Pyridium 100 mg tablet RxNorm: 3129893 1 Tablet(s) PO TID as needed 03/20/2016 08/26/2016 In active Diflucan 150 mg tablet RxNorm: 399652 1 Tablet(s) PO QW as needed 03/19/2016 03/19/2016 Inactive Coumadin 7.5 mg tablet RxNorm: 361987 1 Tablet(s) PO QD 03/14/2016 05/12/2016 Inactive acetazolamide 125 mg tablet RxNorm: 878307 1 Tablet(s) PO BID 02/28/2016 08/20/2016 Inactive Coumadin 5 mg tablet RxNorm: 082675 1 TABLET(S) PO QD THREE TIMES A WEEK AND 1 1/2 TAB (7.5MG) FOUR TIMES A WEEK 02/28/2016 03/13/2016 Inactive Questran Light 4 gra m powder for susp in a packet RxNorm: 2744099 1 PO QD 02/13/2016 05/12/2016 In active Diflucan 150 mg tablet RxNorm: 460916 1 Tablet(s) PO QW as needed 01/19/2016 03/11/2016 Inactive Diflucan 150 mg tablet RxNorm: 050541 1 Tablet(s) PO QW as needed 01/18/2016 01/18/2016 Inactive promethazine 25 mg t ablet RxNorm: 691330 1 Tablet(s) PO Q4H as needed for nausea 12/05/2015 12/17/2016 In active Imitrex 100 mg tablet RxNorm: 862543 1 Tablet(s) PO at headache onset and may repeat in 2 hours if needed 12/05/2015 03/31/2017 Inactive Diflucan 150 mg tablet RxNorm: 130772 1 Tablet(s) PO QW as needed 11/24/2015 01/17/2016 Inactive Diflucan 150 mg tablet RxNorm: 583305 1 Tablet(s) PO QW as needed 11/21/2015 11/23/2015 Inactive Coumadin 5 mg tablet RxNorm: 267468 1 Tablet(s) PO QD three times a week and 1 1/2 tab (7.5mg) four times a week 11/13/2015 02/01/2016 Inactive Questran Light 4 gra m powder for susp in a packet RxNorm: 180430 1 PO QD 11/13/2015 02/10/2016 In active acetazolamide 125 mg tablet RxNorm: 038890 1 Tablet(s) PO BID 11/13/2015 02/10/2016 Inactive amoxicillin 875 mg t ablet RxNorm: 073805 1 Tablet(s) PO BID 11/09/2015 11/18/2015 Inactive Coumadin 7.5 mg tablet RxNorm: 378836 1 Tablet(s) PO on and 10/26/2015 10/25/2015 In active Coumadin 7.5 mg tablet RxNorm: 145769 1 Tablet(s) PO on and 10/26/2015 11/12/2015 In active Coumadin 5 mg tablet RxNorm: 071917 1 Tablet(s) PO Friday, Friday, Friday and Friday. 1.5 tablets Friday, and Friday. 10/26/2015 10/25/2015 Inactive Coumadin 5 mg tablet RxNorm: 507480 1 Tablet(s) PO Friday, Friday, Friday , and Friday. Take 1 1/2 on Friday, and Friday10/26/2015 11/12/2015 Inactive Coumadin 7.5 mg tablet RxNorm: 285260 1 Tablet(s) PO on and 10/26/2015 10/26/2015 In active Coumadin 5 mg tablet RxNorm: 828824 1 Tablet(s) PO Friday, Friday, Friday and Friday. 1.5 tablets Friday, and Friday. 10/26/2015 02/14/2016 Inactive Vistaril 25 mg capsule RxNorm: 502443 1 Capsule(s) PO TID as needed for anxiet y 10/10/2015 04/06/2016 In active cyclobenzaprine 5 mg tablet RxNorm: 157622 1 Tablet(s) PO QPM 10/10/2015 03/24/2016 Inactive Vistaril 25 mg capsule RxNorm: 821116 1 Capsule(s) PO TID as needed for anxiet y 10/10/2015 10/09/2015 In active cyclobenzaprine 5 mg tablet RxNorm: 095029 1 Tablet(s) PO QPM 10/10/2015 10/09/2015 Inactive Coumadin 5 mg tablet RxNorm: 144613 1 Tablet(s) PO Friday, Friday, Friday and Friday. 1.5 tablets Friday, and Friday. 10/02/2015 10/01/2015 Inactive Coumadin 5 mg tablet RxNorm: 420141 1 Tablet(s) PO Friday, Friday, Friday and Friday. 1.5 tablets Friday, and Friday. 10/02/2015 10/25/2015 Inactive amoxicillin 500 mg t ablet RxNorm: 563741 1 Tablet(s) PO TID 10/02/2015 10/11/2015 Inactive hydrocodone 10 mg-ac etaminophen 325 mg tablet RxNorm: 504721 1 Tablet(s) PO Q4-6H as needed for pain 10/02/2015 08/04/2016 Inactive Diflucan 150 mg tablet RxNorm: 246261 1 Tablet(s) PO QW as needed 10/02/2015 10/01/2015 Inactive amoxicillin 500 mg t ablet RxNorm: 184147 1 Tablet(s) PO TID 10/02/2015 10/01/2015 Inactive Diflucan 150 mg tablet RxNorm: 406037 1 Tablet(s) PO QW as needed 10/02/2015 10/09/2015 Inactive Coumadin 5 mg tablet RxNorm: 221539 1 Tablet(s) PO Mon.,Wed.,Fri., Sat. and Sun. 09/14/2015 10/01/2015 Inactive acetazolamide 125 mg tablet RxNorm: 520206 1 Tablet(s) PO BID 09/14/2015 11/12/2015 Inactive hydrocodone 10 mg-ac etaminophen 325 mg tablet RxNorm: 768596 1 Tablet(s) PO Q4-6H as needed for pain 09/01/2015 10/01/2015 Inactive Vistaril 25 mg capsule RxNorm: 100974 1 Capsule(s) PO TID as needed for anxiet y 08/24/2015 09/22/2015 In active baclofen 10 mg tablet RxNorm: 516833 1/2 Tablet(s) PO QAM and 1 tablet at bed time 07/27/2015 10/09/2015 Inactive Vistaril 25 mg capsule RxNorm: 281471 1 Capsule(s) PO BID 07/24/2015 08/22/2015 Inactive Savella 12.5 mg (5)- 25 mg(8)-50mg(42) tablets in a dose pack RxNorm: 375933 Tablet(s) PO as directed 07/10/2015 07/26/2015 Inactive hydrocodone 10 mg-ac etaminophen 325 mg tablet RxNorm: 483093 1 Tablet(s) PO Q6H as needed for pain 06/29/2015 08/10/2015 Inactive Coumadin 7.5 mg tablet RxNorm: 830048 1 Tablet(s) PO on and Th06/21/2015 10/25/2015 In active Vistaril 25 mg capsule RxNorm: 564656 1 Capsule(s) PO BID 06/20/2015 07/24/2015 Inactive Cymbalta 30 mg capsu le,delayed release RxNorm: 976833 1 Capsule(s) PO QD 06/08/2015 07/09/2015 In active Coumadin 5 mg tablet RxNorm: 442418 1 Tablet(s) PO Mon.,Wed.,Fri., Sat. and Sun. 06/08/2015 07/07/2015 Inactive Coumadin 5 mg tablet RxNorm: 814633 1 Tablet(s) PO Mon.,Wed.,Fri., Sat. and Sun. 05/24/2015 06/07/2015 Inactive Coumadin 7.5 mg tablet RxNorm: 459426 1 Tablet(s) PO on and 05/24/2015 06/20/2015 In active Coumadin 7.5 mg tablet RxNorm: 434898 1 Tablet(s) PO on Friday No Start Date Active Vitamin B12 1000mcg Tablet RxNorm: 1/2 Tablet(s) PO QD No Start Date Active Bystolic 10 mg tablet RxNorm: 278214 3 Tablet(s) PO QAM No Start Date Active Vitamin D3 5,000 uni t tablet RxNorm: 998416 1 Tablet(s) PO QD No Start Date Active Bystolic 5 mg tablet RxNorm: 638001 1 Tablet(s) PO NOON No Start Date Active sumatriptan 100 mg t ablet RxNorm: 393575 1 Tablet(s) PO at hea dache onset. May repeat in 2 hours if headache remains No Start Date 11/03/2016 Inactive warfarin 7.5 mg tablet RxNorm: 201384 1 Tablet(s) PO three times weekly No Start Date 09/19/2016 Inactive ondansetron HCl 4 mg tablet RxNorm: 967870 1 Tablet(s) PO Q4H as needed for nausea No Start Date 02/23/2018 Inactive Imitrex 100 mg tablet RxNorm: 170832 1 Tablet(s) PO at headache onset and may repeat in 2 hours if needed No Start Date 12/04/2015 Inactive Vitamin B12 1000mcg Tablet RxNorm: 1/2 Tablet(s) PO on , T hurs, Sat and Sun and 1 tab all other days No Start Date 04/01/2018 Inactive warfarin 5 mg tablet RxNorm: 029057 1 Tablet(s) PO QD No Start Date 02/16/2019 Inactive baclofen 10 mg tablet RxNorm: 581792 1/2 Tablet(s) PO QAM and 1 tablet at bed time No Start Date 07/26/2015 Inactive tizanidine 4 mg tablet RxNorm: 073355 1-2 Tablet(s) PO QHS as needed for muscl e spasm and sleep No Start Date 06/02/2016 Inactive Flexeril 5 mg tablet RxNorm: 378568 1 Tablet(s) PO QD No Start Date 10/09/2015 Inactive methotrexate (PF) 20 mg/0.4 mL subcutaneous auto-injector RxNorm: 5232398 SQ QW No Start Date 12/25/2016 Inactive Bystolic 5 mg tablet RxNorm: 766590 1 Tablet(s) PO as needed No Start Date 03/15/2018 Inactive Questran Light 4 gra m powder for susp in a packet RxNorm: 673308 1 PO QD No Start Date 11/12/2015 Inactive Bystolic 10 mg tablet RxNorm: 309266 1 Tablet(s) PO QAM No Start Date 11/04/2017 Inactive warfarin 5 mg tablet RxNorm: 025679 1 Tablet(s) PO Fri Sat Sun No Start Date 06/17/2017 Inactive hydrocodone 10 mg-ac etaminophen 325 mg tablet RxNorm: 107078 1 Tablet(s) PO 4-6hou rs as needed for pain No Start Date 08/31/2015 Inactive cyclobenzaprine 5 mg tablet RxNorm: 031322 1 Tablet(s) PO QPM No Start Date 12/16/2016 Inactive Lovenox 100 mg/mL carmona bcutaneous syringe RxNorm: 778921 1 Milliliter(s) SQ QD No Start Date 06/07/2015 Inactive Levsin 0.125 mg tablet RxNorm: 6961870 1 Tablet(s) PO QID as needed for spasm No Start Date 02/24/2017 Inactive Savella 12.5 mg (5)- 25 mg(8)-50mg(42) tablets in a dose pack RxNorm: 500296 Tablet(s) PO as directed No Start Date 07/09/2015 Inactive Coumadin 10 mg tablet RxNorm: 404076 1 Tablet(s) PO QD No Start Date 2015 Inactive tramadol 50 mg tablet RxNorm: 057916 1 Tablet(s) PO TID as needed for pain No Start Date 03/31/2017 Inactive BuSpar 5 mg tablet RxNorm: 361570 1 Tablet(s) PO BID No Start Date 02/02/2017 Inactive Vistaril 25 mg capsule RxNorm: 475145 1 Capsule(s) PO BID No Start Date 06/19/2015 Inactive Tessalon Perles 100 mg capsule RxNorm: 772719 1 Capsule(s) PO TID a s needed for cough No Start Date 01/19/2019 Inactive promethazine 12.5 mg tablet RxNorm: 758015 1 Tablet(s) PO Q6H as needed No Start Date 04/22/2018 Inactive Coumadin 7.5 mg tablet RxNorm: 680180 1 Tablet(s) PO Fri and Friday No Start Date 03/13/2016 Inactive Imitrex 50 mg tablet RxNorm: 308568 1 Tablet(s) PO at headache. repeat in 2 hours if no relief. no more than 2 tabs per day No Start Date 12/25/2017 Inactive acetazolamide 125 mg tablet RxNorm: 230280 1 Tablet(s) PO BID No Start Date 09/13/2015 Inactive methotrexate (PF) 12 .5 mg/0.4 mL subcutaneous auto-injector RxNorm: 9048518 1 Milliliter(s) SQ QW No Start Date 03/31/2017 Inactive Bystolic 10 mg tablet RxNorm: 519799 1 Tablet(s) PO QAM No Start Date 03/25/2018 Inactive Zithromax Z-Juan Francisco 250 mg tablet RxNorm: 723273 Tablet(s) PO As Direc liane No Start Date 05/11/2017 Inactive Bystolic 20 mg tablet RxNorm: 289054 1 Tablet(s) PO QD No Start Date 03/15/2018 Inactive Questran 4 gram powd er for susp in a packet RxNorm: 103854 1 Unit(s) PO QD No Start Date 12/16/2016 Inactive Vitamin D3 1,000 uni t tablet RxNorm: 218560 1 Tablet(s) PO QD No Start Date 04/01/2018 Inactive Coumadin 5 mg tablet RxNorm: 758365 1 Tablet(s) PO Friday through Friday No Start Date 03/13/2016 Inactive warfarin 5 mg tablet RxNorm: 270637 1 Tablet(s) PO four days per week No Start Date 04/01/2018 Inactive ProAir HFA 90 mcg/ac tuation aerosol inhaler RxNorm: 343781 2 Puff(s) INH Q4H as needed No Start Date 01/19/2019 Inactive Bystolic 5 mg tablet RxNorm: 484437 1 Tablet(s) PO QHS No Start Date 03/25/2018 Inactive Compazine 10 mg tablet RxNorm: 437260 1 Tablet(s) PO TID as needed for nausea No Start Date 12/17/2016 Inactive Pyridium 200 mg tablet RxNorm: 1651039 1 Tablet(s) PO TID for bladder spasms No Start Date 02/26/2017 Inactive hydrocodone 10 mg-ac etaminophen 325 mg tablet RxNorm: 168500 1 Tablet(s) PO as nee ded No Start Date 06/28/2015 Inactive warfarin 7.5 mg tablet RxNorm: 656008 1 Tablet(s) PO on Friday and No Start Date 04/01/2018 Inactive promethazine 25 mg t ablet RxNorm: 342439 1 Tablet(s) PO Q4H as needed for nausea No Start Date 12/04/2015 Inactive Lovenox 30 mg/0.3 mL subcutaneous syringe RxNorm: 749931 1 Milliliter(s) SQ QD No Start Date [...] 01/19/2019 COUGH ICD-10: R05 ICD-9: 786.2 01/19/2019 half-way (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 ICD-10: Z79.01 ICD-9: [...] and perineal pain ICD-10: R10 .2 ICD-9: [id number] 02/10/2017 Hematuria, unspecified ICD-10: R31.9 ICD-9: 599.70 [...] Observation Code Item Item Code Result Date ANTI STREPTOLYSIN O TITER(ASO) 52250 ASO Titr 110 IU/mL 9 MYCOPLASMA ANTIBODY, IFA [id number] Mycoplas Ab IgG 1:64 01/20/2019 MYCOPLASMA ANTIBODY, IFA [id number] Mycoplas Ab IgM <1:10 01/20/2019 MYCOPLASMA ANTIBODY, IFA [id number] Mycoplasma Intp See Below 01/20/2019 LEGIONELLA [id number] Legio adore Ab <1:128 01/20/2019 HEPATIC FUNCTION PANEL A 91729 Total Protein 6.3 g/dL 01/19/2019 HEPATIC FUNCTION PANEL A 96030 AST 16 U/L 01/19/2019 HEPATIC FUNCTION PANEL A 41251 ALK PHOS 52 U/L 01/19/2019 HEPATIC FUNCTION PANEL A 75827 Bili Total 0.2 mg/dL 01/19/2019 HEPATIC FUNCTION PANEL A 02102 ALT 20 U/L 01/19/2019 HEPATIC FUNCTION PANEL A 14402 ALBUMIN 4.3 g/dL 01/19/2019 HEPATIC FUNCTION PANEL A 81267 Bili Direct 0.1 mg/dL 01/19/2019 PT 8039358 PT 27.5 Seconds 01/19/2019 PT 9405099 INR 2.6 01/19/2019 COMPLETE BLOOD COUNT 0319283 WBC 11.1 10e9/L 01/19/2019 COMPLETE BLOOD COUNT 3042283 RBC 4.14 10e12/L 9 COMPLETE BLOOD COUNT 4663434 HEMOGLOBIN 13.9 g/dL 01/19/2019 COMPLETE BLOOD COUNT 7048770 HEMATOCRIT 40.7 % 01/19/2019 COMPLETE BLOOD COUNT 8514969 MCV 98.3 fL 01/19/2019 COMPLETE BLOOD COUNT 2756336 MCH 33.6 pg 01/19/2019 COMPLETE BLOOD COUNT 7434261 MCHC 34.2 g/dL 01/19/2019 COMPLETE BLOOD COUNT 1393283 PLATELET COUNT 334 10e9/L 01/19/2019 COMPLETE BLOOD COUNT 5125745 Mean Plt Volume 8.9 fL 01/19/2019 COMPLETE BLOOD COUNT 8787309 Neut Auto 60.2 % 01/19/2019 COMPLETE BLOOD COUNT 3969653 Lymph Auto 32.5 % 01/19/2019 COMPLETE BLOOD COUNT 8511603 Gregory Auto 6.1 % 01/19/2019 COMPLETE BLOOD COUNT 8232389 RDW 12.5 % 01/19/2019 COMPLETE BLOOD COUNT 3902836 Eos Auto 1.0 % 01/19/2019 COMPLETE BLOOD COUNT 1100921 Baso Auto 0.2 % 01/19/2019 COMPLETE BLOOD COUNT 6376094 Neutrophil Abs 6.68 10e9/L 01/19/2019 COMPLETE BLOOD COUNT 1287242 Lymphocyte Abs 3.61 10e9/L 01/19/2019 COMPLETE BLOOD COUNT 1216983 Monocyte Abs 0.68 10e9/L 01/19/2019 COMPLETE BLOOD COUNT 1075123 Eosinophil Abs 0.11 10e9/L 01/19/2019 COMPLETE BLOOD COUNT 1732684 RDW-SD 43.4 fL 01/19/2019 COMPLETE BLOOD COUNT 8720711 Basophil Abs 0.02 10e9/L 01/19/2019 COMPLETE BLOOD COUNT 1312326 WBC 7.4 10e9/L 12/18/2018 COMPLETE BLOOD COUNT 6425859 RBC 4.32 10e12/L 9 COMPLETE BLOOD COUNT 5938573 HEMOGLOBIN 14.2 g/dL 12/18/2018 COMPLETE BLOOD COUNT 7198918 HEMATOCRIT 42.0 % 12/18/2018 COMPLETE BLOOD COUNT 1918654 MCV 97.2 fL 12/18/2018 COMPLETE BLOOD COUNT 5716325 MCH 32.9 pg 12/18/2018 COMPLETE BLOOD COUNT 1520585 MCHC 33.8 g/dL 12/18/2018 COMPLETE BLOOD COUNT 3359134 PLATELET COUNT 273 10e9/L 12/18/2018 COMPLETE BLOOD COUNT 5199055 Mean Plt Volume 9.4 fL 12/18/2018 COMPLETE BLOOD COUNT 7481990 Neut Auto 57.7 % 12/18/2018 COMPLETE BLOOD COUNT 1690419 Lymph Auto 34.8 % 12/18/2018 COMPLETE BLOOD COUNT 7921881 Gregory Auto 6.4 % 12/18/2018 COMPLETE BLOOD COUNT 4187960 RDW 12.6 % 12/18/2018 COMPLETE BLOOD COUNT 3043834 Eos Auto 0.8 % 12/18/2018 COMPLETE BLOOD COUNT 5411231 Baso Auto 0.3 % 12/18/2018 COMPLETE BLOOD COUNT 3777923 Neutrophil Abs 4.27 10e9/L 12/18/2018 COMPLETE BLOOD COUNT 8473618 Lymphocyte Abs 2.58 10e9/L 12/18/2018 COMPLETE BLOOD COUNT 1339352 Monocyte Abs 0.47 10e9/L 12/18/2018 COMPLETE BLOOD COUNT 1693781 Eosinophil Abs 0.06 10e9/L 12/18/2018 COMPLETE BLOOD COUNT 6435749 RDW-SD 43.8 fL 12/18/2018 COMPLETE BLOOD COUNT 8492574 Basophil Abs 0.02 10e9/L 12/18/2018 GFR CALC 7197575 GFR Non Afr Amr >60 mL/min 12/18/2018 GFR CALC 0647532 GFR Afr Amr >60 mL/min 12/18/2018 COMPREHENSIVE METABOLIC 63101 AST 33 U/L 12/18/2018 COMPREHENSIVE METABOLIC 79619 ALT 60 U/L 12/18/2018 COMPREHENSIVE METABOLIC 61640 BUN 9 mg/dL 12/18/2018 COMPREHENSIVE METABOLIC 38061 ALBUMIN 4.3 g/dL 12/18/2018 COMPREHENSIVE METABOLIC 35914 CHLORIDE 104 mmol/L 12/18/2018 COMPREHENSIVE METABOLIC 52762 Bili Total 0.3 mg/dL 12/18/2018 COMPREHENSIVE METABOLIC 65775 ALK PHOS 63 U/L 12/18/2018 COMPREHENSIVE METABOLIC 46971 SODIUM 139 mmol/L 12/18/2018 COMPREHENSIVE METABOLIC 62377 CREATININE 0.55 mg/dL 12/18/2018 COMPREHENSIVE METABOLIC 66454 CALCIUM 9.0 mg/dL 12/18/2018 COMPREHENSIVE METABOLIC 96312 POTASSIUM 3.9 mmol/L 12/18/2018 COMPREHENSIVE METABOLIC 51635 Total Protein 6.4 g/dL 12/18/2018 COMPREHENSIVE METABOLIC 13634 Glucose 83 mg/dL 12/18/2018 COMPREHENSIVE METABOLIC 45072 Bicarbonate 27 mmol/L 12/18/2018 COMPREHENSIVE METABOLIC 79413 AGAP 8 mmol/L 12/18/2018 ERYTHROCYTE SEDIMENTATION RATE 65868 Sed Rate 17 mm/hr 12/04/2018 MEAN GLUC 1021042 Calc M zach Gluc 108 mg/dL 12/03/2018 VITAMIN B 12 34757 VITAM IN B12 329 pg/mL 12/03/2018 COMPREHENSIVE METABOLIC 58990 AST 18 U/L 12/03/2018 COMPREHENSIVE METABOLIC 22012 ALT 21 U/L 12/03/2018 COMPREHENSIVE METABOLIC 77054 BUN 11 mg/dL 12/03/2018 COMPREHENSIVE METABOLIC 01409 ALBUMIN 4.5 g/dL 12/03/2018 COMPREHENSIVE METABOLIC 63643 CHLORIDE 106 mmol/L 12/03/2018 COMPREHENSIVE METABOLIC 39872 Bili Total 0.4 mg/dL 12/03/2018 COMPREHENSIVE METABOLIC 48419 ALK PHOS 49 U/L 12/03/2018 COMPREHENSIVE METABOLIC 32757 SODIUM 138 mmol/L 12/03/2018 COMPREHENSIVE METABOLIC 44270 CREATININE 0.61 mg/dL 12/03/2018 COMPREHENSIVE METABOLIC 87355 CALCIUM 9.2 mg/dL 12/03/2018 COMPREHENSIVE METABOLIC 44624 POTASSIUM 3.7 mmol/L 12/03/2018 COMPREHENSIVE METABOLIC 25843 Total Protein 6.8 g/dL 12/03/2018 COMPREHENSIVE METABOLIC 52600 Glucose 94 mg/dL 12/03/2018 COMPREHENSIVE METABOLIC 72843 Bicarbonate 25 mmol/L 12/03/2018 COMPREHENSIVE METABOLIC 12411 AGAP 7 mmol/L 12/03/2018 FREE T4 87413 T4 Free 0.96 ng/dL 12/03/2018 ASSAY TRIIODOTHYRONINE (T3) 49442 T3 Total 1.02 ng/mL 12/03/2018 GFR CALC 5013820 GFR Non Afr Amr >60 mL/min 12/03/2018 GFR CALC 1154138 GFR Afr Amr >60 mL/min 12/03/2018 GLYCOSYLATED HEMOGLOBIN TEST 03853 Hgb A1c 31286-0 5.4 % 12/03/2018 VITAMIN D TOTAL (25 HYDROXY) 72855 Vitamin D 25 OH 11.1 ng/mL 12/03/2018 IRON 05496 Iron 106 ug/dL 12/03/2018 THYROID STIMULATING HORMONE 08783 TSH 0.978 uIU/mL 9 COMPLETE BLOOD COUNT 5532603 WBC 9.4 10e9/L 12/03/2018 COMPLETE BLOOD COUNT 0965634 RBC 4.41 10e12/L 9 COMPLETE BLOOD COUNT 4372577 HEMOGLOBIN 14.5 g/dL 12/03/2018 COMPLETE BLOOD COUNT 2526655 HEMATOCRIT 43.0 % 12/03/2018 COMPLETE BLOOD COUNT 9862357 MCV 97.5 fL 12/03/2018 COMPLETE BLOOD COUNT 5545781 MCH 32.9 pg 12/03/2018 COMPLETE BLOOD COUNT 4775141 MCHC 33.7 g/dL 12/03/2018 COMPLETE BLOOD COUNT 8776121 PLATELET COUNT 336 10e9/L 12/03/2018 COMPLETE BLOOD COUNT 1331393 Mean Plt Volume 9.1 fL 12/03/2018 COMPLETE BLOOD COUNT 7931467 Neut Auto 56.4 % 12/03/2018 COMPLETE BLOOD COUNT 1869768 Lymph Auto 35.6 % 12/03/2018 COMPLETE BLOOD COUNT 4326985 Gregory Auto 6.8 % 12/03/2018 COMPLETE BLOOD COUNT 7480804 RDW 12.6 % 12/03/2018 COMPLETE BLOOD COUNT 9888903 Eos Auto 1.0 % 12/03/2018 COMPLETE BLOOD COUNT 9184987 Baso Auto 0.2 % 12/03/2018 COMPLETE BLOOD COUNT 8108814 Neutrophil Abs 5.30 10e9/L 12/03/2018 COMPLETE BLOOD COUNT 1788963 Lymphocyte Abs 3.35 10e9/L 12/03/2018 COMPLETE BLOOD COUNT 5629132 Monocyte Abs 0.64 10e9/L 12/03/2018 COMPLETE BLOOD COUNT 6513980 Eosinophil Abs 0.09 10e9/L 12/03/2018 COMPLETE BLOOD COUNT 2022605 RDW-SD 44.3 fL 12/03/2018 COMPLETE BLOOD COUNT 7682569 Basophil Abs 0.02 10e9/L 12/03/2018 FERRITIN 30559 FERRITIN 87.8 ng/mL 12/03/2018 PT 5351653 PT 23.1 Seconds 11/30/2018 PT 3601065 INR 2.0 11/30/2018 ANTI STREPTOLYSIN O TITER(ASO) 17218 ASO Titr 117 IU/mL 9 COMPLETE BLOOD COUNT 2624573 WBC 10.7 10e9/L 11/11/2018 COMPLETE BLOOD COUNT 4873326 RBC 4.42 10e12/L 9 COMPLETE BLOOD COUNT 8786826 HEMOGLOBIN 14.5 g/dL 11/11/2018 COMPLETE BLOOD COUNT 3651814 HEMATOCRIT 43.1 % 11/11/2018 COMPLETE BLOOD COUNT 9789190 MCV 97.5 fL 11/11/2018 COMPLETE BLOOD COUNT 1948067 MCH 32.8 pg 11/11/2018 COMPLETE BLOOD COUNT 7636912 MCHC 33.6 g/dL 11/11/2018 COMPLETE BLOOD COUNT 2009365 PLATELET COUNT 324 10e9/L 11/11/2018 COMPLETE BLOOD COUNT 6244713 Mean Plt Volume 9.2 fL 11/11/2018 COMPLETE BLOOD COUNT 5202872 Neut Auto 62.3 % 11/11/2018 COMPLETE BLOOD COUNT 5909690 Lymph Auto 30.8 % 11/11/2018 COMPLETE BLOOD COUNT 2677898 Gregory Auto 6.1 % 11/11/2018 COMPLETE BLOOD COUNT 6856656 RDW 12.7 % 11/11/2018 COMPLETE BLOOD COUNT 9508376 Eos Auto 0.7 % 11/11/2018 COMPLETE BLOOD COUNT 6899116 Baso Auto 0.1 % 11/11/2018 COMPLETE BLOOD COUNT 1836281 Neutrophil Abs 6.67 10e9/L 11/11/2018 COMPLETE BLOOD COUNT 8137302 Lymphocyte Abs 3.30 10e9/L 11/11/2018 COMPLETE BLOOD COUNT 3065844 Monocyte Abs 0.65 10e9/L 11/11/2018 COMPLETE BLOOD COUNT 3394969 Eosinophil Abs 0.07 10e9/L 11/11/2018 COMPLETE BLOOD COUNT 6881048 RDW-SD 44.3 fL 11/11/2018 COMPLETE BLOOD COUNT 6136924 Basophil Abs 0.01 10e9/L 11/11/2018 PT 5786218 PT 23.4 Seconds 10/27/2018 PT 7068478 INR 2.0 10/27/2018 COMPLETE BLOOD COUNT 5907472 WBC 8.1 10e9/L 09/25/2018 COMPLETE BLOOD COUNT 2382041 RBC 4.37 10e12/L 9 COMPLETE BLOOD COUNT 2147646 HEMOGLOBIN 14.5 g/dL 09/25/2018 COMPLETE BLOOD COUNT 5736899 HEMATOCRIT 42.1 % 09/25/2018 COMPLETE BLOOD COUNT 8192580 MCV 96.3 fL 09/25/2018 COMPLETE BLOOD COUNT 5458719 MCH 33.2 pg 09/25/2018 COMPLETE BLOOD COUNT 1361635 MCHC 34.4 g/dL 09/25/2018 COMPLETE BLOOD COUNT 5231524 PLATELET COUNT 313 10e9/L 09/25/2018 COMPLETE BLOOD COUNT 7671825 Mean Plt Volume 9.2 fL 09/25/2018 COMPLETE BLOOD COUNT 0698071 Neut Auto 57.4 % 09/25/2018 COMPLETE BLOOD COUNT 8067018 Lymph Auto 35.0 % 09/25/2018 COMPLETE BLOOD COUNT 6563420 Gregory Auto 6.3 % 09/25/2018 COMPLETE BLOOD COUNT 4941630 RDW 12.6 % 09/25/2018 COMPLETE BLOOD COUNT 4186237 Eos Auto 1.1 % 09/25/2018 COMPLETE BLOOD COUNT 4515228 Baso Auto 0.2 % 09/25/2018 COMPLETE BLOOD COUNT 1873461 Neutrophil Abs 4.65 10e9/L 09/25/2018 COMPLETE BLOOD COUNT 9011449 Lymphocyte Abs 2.84 10e9/L 09/25/2018 COMPLETE BLOOD COUNT [id number] Monocyte Abs 0.51 10e9/L 09/25/2018 COMPLETE BLOOD COUNT [id number] Eosinophil Abs 0.09 10e9/L 09/25/2018 COMPLETE BLOOD COUNT [id number] RDW-SD 43.0 fL 09/25/2018 COMPLETE BLOOD COUNT [id number] Basophil Abs 0.02 10e9/L 09/25/2018 COMPREHENSIVE METABOLIC 56408 AST 15 U/L 09/25/2018 COMPREHENSIVE METABOLIC 76208 ALT 20 U/L 09/25/2018 COMPREHENSIVE METABOLIC 78937 BUN 9 mg/dL 09/25/2018 COMPREHENSIVE METABOLIC 48798 ALBUMIN 4.3 g/dL 09/25/2018 COMPREHENSIVE METABOLIC 00957 CHLORIDE 107 mmol/L 09/25/2018 COMPREHENSIVE METABOLIC 49547 Bili Total 0.4 mg/dL 09/25/2018 COMPREHENSIVE METABOLIC 24005 ALK PHOS 51 U/L 09/25/2018 COMPREHENSIVE METABOLIC 30405 SODIUM 139 mmol/L 09/25/2018 COMPREHENSIVE METABOLIC 88292 CREATININE 0.61 mg/dL 09/25/2018 COMPREHENSIVE METABOLIC 50525 CALCIUM 9.1 mg/dL 09/25/2018 COMPREHENSIVE METABOLIC 28463 POTASSIUM 3.7 mmol/L 09/25/2018 COMPREHENSIVE METABOLIC 86838 Total Protein 6.3 g/dL 09/25/2018 COMPREHENSIVE METABOLIC 27956 Glucose 92 mg/dL 09/25/2018 COMPREHENSIVE METABOLIC 29597 Bicarbonate 24 mmol/L 09/25/2018 COMPREHENSIVE METABOLIC 77583 AGAP 8 mmol/L 09/25/2018 PT 3651719 PT 25.0 Seconds 09/25/2018 PT 8551457 INR 2.2 09/25/2018 GFR CALC 4379459 GFR Non Afr Amr >60 mL/min 09/25/2018 GFR CALC 7001784 GFR Afr Amr >60 mL/min 09/25/2018 PT 1588146 PT 25.7 Seconds 05/12/2018 PT 5342008 INR 2.3 05/12/2018 PT 9515553 PT TNP:Improper Specimen 04/30/2018 PT [id number] INR TNP:Improper Specimen 04/30/2018 PT 8104168 PT 26.3 Seconds 02/05/2018 PT 8751286 INR 2.4 02/05/2018 ANTI STREPTOLYSIN O TITER(ASO) 46546 ASO Titr 118 IU/mL 8 VITAMIN B 12 69509 VITAM IN B12 302 pg/mL 12/02/2017 VITAMIN D TOTAL (25 HYDROXY) 23611 Vitamin D 25 OH 27.0 ng/mL 12/02/2017 PT 2938966 PT 17.3 Seconds 12/01/2017 PT 2104695 INR 1.4 12/01/2017 ANTI STREPTOLYSIN O TITER(ASO) 31162 ASO Titr 127 IU/mL 8 ANTI STREPTOLYSIN O TITER(ASO) 96270 ASO Titr 130 IU/mL 8 ANTINUCLEAR ANTIBODY SCREEN 81654 MAGALIE Ab Scr <1:80 10/02/2017 RA FACTOR 89461 RA FACTOR <20 IU/mL 10/02/2017 RA FACTOR 74175 RA Facto r Intp Negative 10/02/2017 VITAMIN D TOTAL (25 HYDROXY) 74664 Vitamin D 25 OH 18 ng/mL 8 IRON 82882 Iron 70 ug/dL 10/01/2017 VITAMIN B 12 69985 VITAM IN B12 377 pg/mL 10/01/2017 FREE T4 46276 T4 Free 1.31 ng/dL 10/01/2017 URIC ACID 42639 URIC ACID 3.9 mg/dL 10/01/2017 FERRITIN 36621 FERRITIN 68.0 ng/mL 10/01/2017 THYROID STIMULATING HORMONE 66706 TSH 1.401 uIU/mL 8 GLYCOSYLATED HEMOGLOBIN TEST 21626 Hgb A1c 10020-5 5.4 % 10/01/2017 FOLIC ACID 26956 Folate >24.0 ng/mL 10/01/2017 ASSAY TRIIODOTHYRONINE (T3) 31417 T3 Total 1.0 ng/mL 10/01/2017 ERYTHROCYTE SEDIMENTATION RATE 82003 Sed Rate 5 mm/hr 10/01/2017 MEAN GLUC 7898376 Calc M zach Gluc 108 mg/dL 10/01/2017 PT 6918574 PT 18.6 Seconds 08/07/2017 PT 7363638 INR 1.5 08/07/2017 COMPREHENSIVE METABOLIC 03803 AST 21 U/L 08/07/2017 COMPREHENSIVE METABOLIC 79003 ALT 37 U/L 08/07/2017 COMPREHENSIVE METABOLIC 03918 BUN 14 mg/dL 08/07/2017 COMPREHENSIVE METABOLIC 77479 ALBUMIN 4.5 g/dL 08/07/2017 COMPREHENSIVE METABOLIC 50927 CHLORIDE 104 mmol/L 08/07/2017 COMPREHENSIVE METABOLIC 13003 Bili Total 0.3 mg/dL 08/07/2017 COMPREHENSIVE METABOLIC 15607 ALK PHOS 55 U/L 08/07/2017 COMPREHENSIVE METABOLIC 88767 SODIUM 139 mmol/L 08/07/2017 COMPREHENSIVE METABOLIC 44852 CREATININE 0.77 mg/dL 08/07/2017 COMPREHENSIVE METABOLIC 67322 CALCIUM 9.2 mg/dL 08/07/2017 COMPREHENSIVE METABOLIC 68848 POTASSIUM 3.7 mmol/L 08/07/2017 COMPREHENSIVE METABOLIC 45649 Total Protein 6.5 g/dL 08/07/2017 COMPREHENSIVE METABOLIC 23090 Glucose 101 mg/dL 08/07/2017 COMPREHENSIVE METABOLIC 63440 Bicarbonate 25 mmol/L 08/07/2017 COMPREHENSIVE METABOLIC 74004 AGAP 10 mmol/L 08/07/2017 COMPLETE BLOOD COUNT 9993834 WBC 9.4 10e9/L 08/07/2017 COMPLETE BLOOD COUNT 3140093 RBC 4.38 10e12/L 8 COMPLETE BLOOD COUNT 7023140 HEMOGLOBIN 14.5 g/dL 08/07/2017 COMPLETE BLOOD COUNT 4039186 HEMATOCRIT 42.7 % 08/07/2017 COMPLETE BLOOD COUNT 9163677 MCV 97.5 fL 08/07/2017 COMPLETE BLOOD COUNT 3617591 MCH 33.1 pg 08/07/2017 COMPLETE BLOOD COUNT 5016813 MCHC 34.0 g/dL 08/07/2017 COMPLETE BLOOD COUNT 1732861 PLATELET COUNT 313 10e9/L 08/07/2017 COMPLETE BLOOD COUNT 9183251 Mean Plt Volume 8.6 fL 08/07/2017 COMPLETE BLOOD COUNT 8745274 Neut Auto 51.6 % 08/07/2017 COMPLETE BLOOD COUNT 9061176 Lymph Auto 40.0 % 08/07/2017 COMPLETE BLOOD COUNT 1494711 Gregory Auto 6.8 % 08/07/2017 COMPLETE BLOOD COUNT 8236611 Eos Auto 1.4 % 08/07/2017 COMPLETE BLOOD COUNT 9753258 RDW 12.9 % 08/07/2017 COMPLETE BLOOD COUNT 3369187 Baso Auto 0.2 % 08/07/2017 COMPLETE BLOOD COUNT 4248954 Neutrophil Abs 4.85 10e9/L 08/07/2017 COMPLETE BLOOD COUNT 1822396 Lymphocyte Abs 3.76 10e9/L 08/07/2017 COMPLETE BLOOD COUNT 8037713 Monocyte Abs 0.64 10e9/L 08/07/2017 COMPLETE BLOOD COUNT 1030550 Eosinophil Abs 0.13 10e9/L 08/07/2017 COMPLETE BLOOD COUNT 0531034 RDW-SD 45.1 fL 08/07/2017 COMPLETE BLOOD COUNT 7399196 Basophil Abs 0.02 10e9/L 08/07/2017 GFR CALC 9908724 GFR Afr Amr >60 mL/min 08/07/2017 GFR CALC 2013056 GFR Non Afr Amr >60 mL/min 08/07/2017 COMPLETE BLOOD COUNT 6384540 WBC 9.2 10e9/L 07/15/2017 COMPLETE BLOOD COUNT 2018832 RBC 4.70 10e12/L 8 COMPLETE BLOOD COUNT 7541634 HEMOGLOBIN 15.4 g/dL 07/15/2017 COMPLETE BLOOD COUNT 5952500 HEMATOCRIT 46.2 % 07/15/2017 COMPLETE BLOOD COUNT 9940755 MCV 98.3 fL 07/15/2017 COMPLETE BLOOD COUNT 0753197 MCH 32.8 pg 07/15/2017 COMPLETE BLOOD COUNT 2205314 MCHC 33.3 g/dL 07/15/2017 COMPLETE BLOOD COUNT 1416675 PLATELET COUNT 348 10e9/L 07/15/2017 COMPLETE BLOOD COUNT 9931339 Mean Plt Volume 8.9 fL 07/15/2017 COMPLETE BLOOD COUNT 8160186 Neut Auto 60.6 % 07/15/2017 COMPLETE BLOOD COUNT 6086912 Lymph Auto 30.9 % 07/15/2017 COMPLETE BLOOD COUNT 6308095 Gregory Auto 7.1 % 07/15/2017 COMPLETE BLOOD COUNT 2656636 RDW 13.1 % 07/15/2017 COMPLETE BLOOD COUNT 6599800 Eos Auto 1.2 % 07/15/2017 COMPLETE BLOOD COUNT 4218010 Baso Auto 0.2 % 07/15/2017 COMPLETE BLOOD COUNT 4634761 Neutrophil Abs 5.58 10e9/L 07/15/2017 COMPLETE BLOOD COUNT 5588632 Lymphocyte Abs 2.84 10e9/L 07/15/2017 COMPLETE BLOOD COUNT 1369060 Monocyte Abs 0.65 10e9/L 07/15/2017 COMPLETE BLOOD COUNT 8650308 Eosinophil Abs 0.11 10e9/L 07/15/2017 COMPLETE BLOOD COUNT 0152645 Basophil Abs 0.02 10e9/L 07/15/2017 COMPLETE BLOOD COUNT 8421274 RDW-SD 46.1 fL 07/15/2017 GFR CALC 2980261 GFR Afr Amr >60 mL/min 07/15/2017 GFR CALC 2341358 GFR Non Afr Amr >60 mL/min 07/15/2017 COMPREHENSIVE METABOLIC 88110 AST 16 U/L 07/15/2017 COMPREHENSIVE METABOLIC 97844 ALT 20 U/L 07/15/2017 COMPREHENSIVE METABOLIC 09606 BUN 13 mg/dL 07/15/2017 COMPREHENSIVE METABOLIC 09702 ALBUMIN 4.6 g/dL 07/15/2017 COMPREHENSIVE METABOLIC 65303 CHLORIDE 106 mmol/L 07/15/2017 COMPREHENSIVE METABOLIC 83196 Bili Total 0.3 mg/dL 07/15/2017 COMPREHENSIVE METABOLIC 88298 ALK PHOS 50 U/L 07/15/2017 COMPREHENSIVE METABOLIC 60187 SODIUM 137 mmol/L 07/15/2017 COMPREHENSIVE METABOLIC 43676 CREATININE 0.62 mg/dL 07/15/2017 COMPREHENSIVE METABOLIC 98789 CALCIUM 9.2 mg/dL 07/15/2017 COMPREHENSIVE METABOLIC 49384 POTASSIUM 3.8 mmol/L 07/15/2017 COMPREHENSIVE METABOLIC 73844 Total Protein 6.7 g/dL 07/15/2017 COMPREHENSIVE METABOLIC 92719 Glucose 83 mg/dL 07/15/2017 COMPREHENSIVE METABOLIC 95225 Bicarbonate 30 mmol/L 07/15/2017 COMPREHENSIVE METABOLIC 00721 AGAP 1 mmol/L 07/15/2017 THYROID STIMULATING HORMONE 05961 TSH 2.111 uIU/mL 201 7 COMPREHENSIVE METABOLIC 74744 AST 33 U/L 08/27/2016 COMPREHENSIVE METABOLIC 27906 ALT 55 U/L 08/27/2016 COMPREHENSIVE METABOLIC 19323 BUN 11 mg/dL 08/27/2016 COMPREHENSIVE METABOLIC 00060 ALBUMIN 4.6 g/dL 08/27/2016 COMPREHENSIVE METABOLIC 49649 CHLORIDE 103 mmol/L 08/27/2016 COMPREHENSIVE METABOLIC 18501 Bili Total 0.3 mg/dL 08/27/2016 COMPREHENSIVE METABOLIC 76391 ALK PHOS 60 U/L 08/27/2016 COMPREHENSIVE METABOLIC 12256 SODIUM 140 mmol/L 08/27/2016 COMPREHENSIVE METABOLIC 67320 CREATININE 0.69 mg/dL 08/27/2016 COMPREHENSIVE METABOLIC 06860 CALCIUM 9.3 mg/dL 08/27/2016 COMPREHENSIVE METABOLIC 75832 POTASSIUM 3.7 mmol/L 08/27/2016 COMPREHENSIVE METABOLIC 73114 Total Protein 6.8 g/dL 08/27/2016 COMPREHENSIVE METABOLIC 26185 Glucose 79 mg/dL 08/27/2016 COMPREHENSIVE METABOLIC 09947 Bicarbonate 25 mmol/L 08/27/2016 COMPREHENSIVE METABOLIC 00969 AGAP 12 mmol/L 08/27/2016 COMPLETE BLOOD COUNT 9020571 WBC 9.4 10e9/L 08/27/2016 COMPLETE BLOOD COUNT 8103982 RBC 4.35 10e12/L 7 COMPLETE BLOOD COUNT 8055313 HEMOGLOBIN 14.2 g/dL 08/27/2016 COMPLETE BLOOD COUNT 4083914 HEMATOCRIT 41.5 % 08/27/2016 COMPLETE BLOOD COUNT 2400094 MCV 95.4 fL 08/27/2016 COMPLETE BLOOD COUNT 7147136 MCH 32.6 pg 08/27/2016 COMPLETE BLOOD COUNT 0435771 MCHC 34.2 g/dL 08/27/2016 COMPLETE BLOOD COUNT 8593853 PLATELET COUNT 289 10e9/L 08/27/2016 COMPLETE BLOOD COUNT 5651200 Mean Plt Volume 9.8 fL 08/27/2016 COMPLETE BLOOD COUNT 1832900 Neut Auto 47.7 % 08/27/2016 COMPLETE BLOOD COUNT 0836933 Lymph Auto 44.2 % 08/27/2016 COMPLETE BLOOD COUNT 4907696 Gregory Auto 6.6 % 08/27/2016 COMPLETE BLOOD COUNT 3545667 RDW 12.9 % 08/27/2016 COMPLETE BLOOD COUNT 1268791 Eos Auto 1.4 % 08/27/2016 COMPLETE BLOOD COUNT 3388581 Baso Auto 0.1 % 08/27/2016 COMPLETE BLOOD COUNT 0360054 Neutrophil Abs 4.48 10e9/L 08/27/2016 COMPLETE BLOOD COUNT 0983499 Lymphocyte Abs 4.15 10e9/L 08/27/2016 COMPLETE BLOOD COUNT 6329096 Monocyte Abs 0.62 10e9/L 08/27/2016 COMPLETE BLOOD COUNT 2427444 Eosinophil Abs 0.13 10e9/L 08/27/2016 COMPLETE BLOOD COUNT 0445124 RDW-SD 43.9 fL 08/27/2016 COMPLETE BLOOD COUNT 6322161 Basophil Abs 0.01 10e9/L 08/27/2016 PT 6504676 PT 15.0 Seconds 08/27/2016 PT 1579443 INR 1.2 08/27/2016 GFR CALC 7603145 GFR Afr Amr >60 mL/min 08/27/2016 GFR CALC 1877306 GFR Non Afr Amr >60 mL/min 08/27/2016 GFR CALC 9756041 GFR Non Afr Amr >60 mL/min 05/24/2016 GFR CALC 8942758 GFR Afr Amr >60 mL/min 05/24/2016 COMPREHENSIVE METABOLIC 17162 AST 19 U/L 05/24/2016 COMPREHENSIVE METABOLIC 64894 ALT 23 U/L 05/24/2016 COMPREHENSIVE METABOLIC 45301 BUN 12 mg/dL 05/24/2016 COMPREHENSIVE METABOLIC 23325 ALBUMIN 4.1 g/dL 05/24/2016 COMPREHENSIVE METABOLIC 14237 CHLORIDE 105 mmol/L 05/24/2016 COMPREHENSIVE METABOLIC 78379 Bili Total 0.4 mg/dL 05/24/2016 COMPREHENSIVE METABOLIC 46931 ALK PHOS 52 U/L 05/24/2016 COMPREHENSIVE METABOLIC 29146 SODIUM 136 mmol/L 05/24/2016 COMPREHENSIVE METABOLIC 06484 CREATININE 0.61 mg/dL 05/24/2016 COMPREHENSIVE METABOLIC 57056 CALCIUM 8.8 mg/dL 05/24/2016 COMPREHENSIVE METABOLIC 18508 POTASSIUM 3.8 mmol/L 05/24/2016 COMPREHENSIVE METABOLIC 68068 Total Protein 6.2 g/dL 05/24/2016 COMPREHENSIVE METABOLIC 32290 Glucose 95 mg/dL 05/24/2016 COMPREHENSIVE METABOLIC 76868 Bicarbonate 19 mmol/L 05/24/2016 COMPREHENSIVE METABOLIC 43783 AGAP 12 mmol/L 05/24/2016 PT 2468011 PT 25.7 Seconds 05/24/2016 PT 0145994 INR 2.4 05/24/2016 PT 5714207 PT 22.2 Seconds 04/11/2016 PT 7037733 INR 2.0 04/11/2016 PT 0436048 PT 16.5 Seconds 03/13/2016 PT 1933152 INR 1.4 03/13/2016 THYROID STIMULATING HORMONE 81358 TSH 1.151 uIU/mL 6 COMPLETE BLOOD COUNT 4938840 WBC 10.0 10e9/L 03/12/2016 COMPLETE BLOOD COUNT 0894567 RBC 4.08 10e12/L 6 COMPLETE BLOOD COUNT 0482375 HEMOGLOBIN 13.5 g/dL 03/12/2016 COMPLETE BLOOD COUNT 9321661 HEMATOCRIT 38.8 % 03/12/2016 COMPLETE BLOOD COUNT 7355069 MCV 95.1 fL 03/12/2016 COMPLETE BLOOD COUNT 1818151 MCH 33.1 pg 03/12/2016 COMPLETE BLOOD COUNT 8771544 MCHC 34.8 g/dL 03/12/2016 COMPLETE BLOOD COUNT 5536600 PLATELET COUNT 282 10e9/L 03/12/2016 COMPLETE BLOOD COUNT 7827649 Mean Plt Volume 9.6 fL 03/12/2016 COMPLETE BLOOD COUNT 3804179 Neut Auto 53.5 % 03/12/2016 COMPLETE BLOOD COUNT 1213714 Lymph Auto 39.0 % 03/12/2016 COMPLETE BLOOD COUNT 1256788 Gregory Auto 5.9 % 03/12/2016 COMPLETE BLOOD COUNT 6015431 Eos Auto 1.4 % 03/12/2016 COMPLETE BLOOD COUNT 1315207 RDW 12.6 % 03/12/2016 COMPLETE BLOOD COUNT 7956487 Baso Auto 0.2 % 03/12/2016 COMPLETE BLOOD COUNT 2857602 Neutrophil Abs 5.35 10e9/L 03/12/2016 COMPLETE BLOOD COUNT 4158652 Lymphocyte Abs 3.90 10e9/L 03/12/2016 COMPLETE BLOOD COUNT 5199329 Monocyte Abs 0.59 10e9/L 03/12/2016 COMPLETE BLOOD COUNT 0084028 Eosinophil Abs 0.14 10e9/L 03/12/2016 COMPLETE BLOOD COUNT 5412666 RDW-SD 42.7 fL 03/12/2016 COMPLETE BLOOD COUNT 2812763 Basophil Abs 0.02 10e9/L 03/12/2016 COMPREHENSIVE METABOLIC 57996 AST 13 U/L 03/12/2016 COMPREHENSIVE METABOLIC 93287 ALT 11 U/L 03/12/2016 COMPREHENSIVE METABOLIC 93557 BUN 11 mg/dL 03/12/2016 COMPREHENSIVE METABOLIC 11399 ALBUMIN 4.1 g/dL 03/12/2016 COMPREHENSIVE METABOLIC 55486 CHLORIDE 107 mmol/L 03/12/2016 COMPREHENSIVE METABOLIC 09116 Bili Total 0.3 mg/dL 03/12/2016 COMPREHENSIVE METABOLIC 54112 ALK PHOS 41 U/L 03/12/2016 COMPREHENSIVE METABOLIC 30857 SODIUM 137 mmol/L 03/12/2016 COMPREHENSIVE METABOLIC 88493 CREATININE 0.62 mg/dL 03/12/2016 COMPREHENSIVE METABOLIC 61851 CALCIUM 9.0 mg/dL 03/12/2016 COMPREHENSIVE METABOLIC 79368 POTASSIUM 3.8 mmol/L 03/12/2016 COMPREHENSIVE METABOLIC 90543 Total Protein 6.1 g/dL 03/12/2016 COMPREHENSIVE METABOLIC 45680 Glucose 95 mg/dL 03/12/2016 COMPREHENSIVE METABOLIC 81468 Bicarbonate 23 mmol/L 03/12/2016 COMPREHENSIVE METABOLIC 47613 AGAP 7 mmol/L 03/12/2016 GFR CALC 9974421 GFR Afr Amr >60 mL/min 03/12/2016 GFR CALC 6881049 GFR Non Afr Amr >60 mL/min 03/12/2016 PT 6136033 PT 14.4 Seconds 02/12/2016 PT 1679116 INR 1.2 02/12/2016 PT 9034632 PT 26.1 Seconds 02/01/2016 PT 9594347 INR 2.4 02/01/2016 [place] VIR[place] VCA G/M + [place] + [place] [address]|8 6665 x 2|07181 EBV VCA Ab IgG 3.70 11/13/2015 [place] VIR[place] VCA G/M + [place] + [place] [address]|8 6665 x 2|91062 EBV VCA Ab IgM 0.47 11/13/2015 [place]IRUS VCA G/M + [place] + [place] [address]|8 6665 x 2|18147 EBV Nuclear Ab 2.24 11/13/2015 [place] VCA G/M + [place] + [place] [address]|8 6665 x 2|30311 EBV Early Ab 1.37 11/13/2015 PT 6228241 PT 18.9 Seconds 11/10/2015 PT 0749513 INR 1.6 11/10/2015 PT 3342304 PT 16.8 Seconds 09/29/2015 PT 7724193 INR 1.4 09/29/2015 COMPLETE BLOOD COUNT 4786938 WBC 9.6 10e9/L 09/29/2015 COMPLETE BLOOD COUNT 0529132 RBC 4.51 10e12/L 6 COMPLETE BLOOD COUNT 2244677 HEMOGLOBIN 14.8 g/dL 09/29/2015 COMPLETE BLOOD COUNT 5008317 HEMATOCRIT 43.3 % 09/29/2015 COMPLETE BLOOD COUNT 0787133 MCV 96.0 fL 09/29/2015 COMPLETE BLOOD COUNT 6773392 MCH 32.8 pg 09/29/2015 COMPLETE BLOOD COUNT 6235997 MCHC 34.2 g/dL 09/29/2015 COMPLETE BLOOD COUNT 3979301 PLATELET COUNT 310 10e9/L 09/29/2015 COMPLETE BLOOD COUNT 9937018 Mean Plt Volume 9.7 fL 09/29/2015 COMPLETE BLOOD COUNT 5495172 Neutrophil 60.3 % 09/29/2015 COMPLETE BLOOD COUNT 3468922 Lymph Auto % 32.4 % 09/29/2015 COMPLETE BLOOD COUNT 0796508 Monocyte Auto % 6.5 % 09/29/2015 COMPLETE BLOOD COUNT 2687356 RDW 12.8 % 09/29/2015 COMPLETE BLOOD COUNT 5039696 Eosinophil 0.7 % 09/29/2015 COMPLETE BLOOD COUNT 5501301 Basophil 0.1 % 09/29/2015 COMPLETE BLOOD COUNT 4806037 Neutrophil Abs 5.79 10e9/L 09/29/2015 COMPLETE BLOOD COUNT 6647665 Lymphoctye Abs 3.11 10e9/L 09/29/2015 COMPLETE BLOOD COUNT 8329600 Monocyte Abs 0.62 10e9/L 09/29/2015 COMPLETE BLOOD COUNT 3076962 Eosinophil Abs 0.07 10e9/L 09/29/2015 COMPLETE BLOOD COUNT 5738051 RDW-SD 43.6 fL 09/29/2015 COMPLETE BLOOD COUNT 5141797 Basophil Abs 0.01 10e9/L 09/29/2015 IRON 73882 Iron 86 ug/dL 09/29/2015 COMPLETE BLOOD COUNT 9728239 WBC 9.6 10e9/L 09/29/2015 COMPLETE BLOOD COUNT 9128974 RBC 4.51 10e12/L 6 COMPLETE BLOOD COUNT 0154966 HEMOGLOBIN 14.8 g/dL 09/29/2015 COMPLETE BLOOD COUNT 5335986 HEMATOCRIT 43.3 % 09/29/2015 COMPLETE BLOOD COUNT 1007871 MCV 96.0 fL 09/29/2015 COMPLETE BLOOD COUNT 8699915 MCH 32.8 pg 09/29/2015 COMPLETE BLOOD COUNT 0659164 MCHC 34.2 g/dL 09/29/2015 COMPLETE BLOOD COUNT 7650880 PLATELET COUNT 310 10e9/L 09/29/2015 COMPLETE BLOOD COUNT 3794691 Mean Plt Volume 9.7 fL 09/29/2015 COMPLETE BLOOD COUNT 9005485 Neutrophil 60.3 % 09/29/2015 COMPLETE BLOOD COUNT 3678883 Lymph Auto % 32.4 % 09/29/2015 COMPLETE BLOOD COUNT 0332946 Monocyte Auto % 6.5 % 09/29/2015 COMPLETE BLOOD COUNT 3875615 RDW 12.8 % 09/29/2015 COMPLETE BLOOD COUNT 0428162 Eosinophil 0.7 % 09/29/2015 COMPLETE BLOOD COUNT 3507665 Basophil 0.1 % 09/29/2015 COMPLETE BLOOD COUNT 7681406 Neutrophil Abs 5.79 10e9/L 09/29/2015 COMPLETE BLOOD COUNT 9630175 Lymphoctye Abs 3.11 10e9/L 09/29/2015 COMPLETE BLOOD COUNT 2303557 Monocyte Abs 0.62 10e9/L 09/29/2015 COMPLETE BLOOD COUNT 6674161 Eosinophil Abs 0.07 10e9/L 09/29/2015 COMPLETE BLOOD COUNT 7457578 RDW-SD 43.6 fL 09/29/2015 COMPLETE BLOOD COUNT 8163008 Basophil Abs 0.01 10e9/L 09/29/2015 PT 6320623 PT 16.8 Seconds 09/29/2015 PT 4668665 INR 1.4 09/29/2015 IRON 37623 Iron 86 ug/dL 09/29/2015 PT [place] 96214 PRO T PAULIE 19.4 SEC 07/27/2015 [place] 11239 INR M CMC 1.7 07/27/2015 PT [place] 51550 PRO T PAULIE 21.4 SEC 06/21/2015 PT [place] 29545 INR M CMC 1.9 06/21/2015 PT [place] 80605 PRO T PAULIE 24.5 SEC 05/24/2015 PT [place] 94472 INR M CMC 2.3 05/24/2015 Review of [...] 03/16/2018 Musculoskeletal No myalgias 03/16/2018 Neurologic headache 09/09/2017 Gastrointestinal abdominal pain 02/16/2018 Gastrointestinal gas and [...] discharge 01/26/2018 Neurologic dizziness 10/2017 Neurologic headache 07/10/2017 Ears/Nose/Throat/Neck otalgia 12/25/2017 Constitutional fatigue 0 12/11/2017 [...] 11/09/2015 Constitutional chills Eyes No eye pain 05/19/2 016 Eyes No photophobia 10/21 Eyes No [...] Procedures Procedure Codes Date ROUTINE VENIPUNCTURE CPT-4: 29359 02/17/2019 PT CPT-4: 9740415 02/17/2019 URINE CULTURE/ COLON Y COUNT CPT-4: 61124 02/08/2019 ROUTINE VENIPUNCTURE CPT-4: 46192 01/19/2019 PROTHROMBIN TIME CPT-4: 79254 01/19/2019 COMPLETE CBC W/AUTO DIFF WBC CPT-4: 85656 01/19/2019 ANTISTREPTOLYSIN O T ITER CPT-4: 07649 01/19/2019 HEPATIC FUNCTION PANEL CPT-4: 27746 01/19/2019 MYCOPLASMA ANTIBODY, IFA CPT-4: 16877R4 01/19/2019 RESPIRATORY CULTURE & STAIN CPT-4: 74530 01/19/2019 STREP A ASSAY W/OPTIC CPT-4: 00394 01/19/2019 THER/PROPH/DIAG INJ SC/IM CPT-4: 58625 01/04/2019 TRIAMCINOLONE ACET I [place] NOS CPT-4: J3301 01/04/2019 ROUTINE VENIPUNCTURE CPT-4: 26674 12/18/2018 COMPLETE CBC W/AUTO DIFF WBC CPT-4: 54660 12/18/2018 COMPREHEN METABOLIC PANEL CPT-4: 46998 12/18/2018 HYDRATION IV INFUSIO N INIT CPT-4: 40828 12/16/2018 STREP A ASSAY W/OPTIC CPT-4: 17702 12/02/2018 ROUTINE VENIPUNCTURE CPT-4: 66085 11/30/2018 PT CPT-4: 6547691 11/30/2018 CEFTRIAXONE SODIUM I NJECTION CPT-4: J0696 11/30/2018 THER/PROPH/DIAG INJ SC/IM CPT-4: 57511 11/30/2018 URINE CULTURE/ COLON Y COUNT CPT-4: 79847 11/20/2018 URINALYSIS NONAUTO W /O SCOPE CPT-4: 06321 11/20/2018 CEFTRIAXONE SODIUM I NJECTION CPT-4: J0696 11/12/2018 THER/PROPH/DIAG INJ SC/IM CPT-4: 11814 11/12/2018 STREP A ASSAY W/OPTIC CPT-4: 50745 11/11/2018 CEFTRIAXONE SODIUM I NJECTION CPT-4: J0696 11/11/2018 THER/PROPH/DIAG INJ SC/IM CPT-4: 32353 11/11/2018 ROUTINE VENIPUNCTURE CPT-4: 61630 11/11/2018 ANTISTREPTOLYSIN O T ITER CPT-4: 78782 11/11/2018 COMPLETE CBC W/AUTO DIFF WBC CPT-4: 05349 11/11/2018 ROUTINE VENIPUNCTURE CPT-4: 59773 10/27/2018 PT CPT-4: 4862438 10/27/2018 THER/PROPH/DIAG INJ SC/IM CPT-4: 80953 10/09/2018 TRIAMCINOLONE ACET I NJ NOS CPT-4: J3301 10/09/2018 CEFTRIAXONE SODIUM I NJECTION CPT-4: J0696 10/08/2018 THER/PROPH/DIAG INJ SC/IM CPT-4: 36466 10/08/2018 CEFTRIAXONE SODIUM I NJECTION CPT-4: J0696 10/07/2018 THER/PROPH/DIAG INJ SC/IM CPT-4: 12232 10/07/2018 ROUTINE VENIPUNCTURE CPT-4: 23853 09/25/2018 COMPREHEN METABOLIC PANEL CPT-4: 27471 09/25/2018 COMPLETE CBC W/AUTO DIFF WBC CPT-4: 33393 09/25/2018 PT CPT-4: 3536546 09/25/2018 URINE CULTURE/ COLON Y COUNT CPT-4: 63687 09/10/2018 URINALYSIS NONAUTO W /O SCOPE CPT-4: 98489 09/10/2018 CEFTRIAXONE SODIUM I NJECTION CPT-4: J0696 09/08/2018 THER/PROPH/DIAG INJ SC/IM CPT-4: 48580 09/08/2018 ROUTINE VENIPUNCTURE CPT-4: 37858 08/14/2018 PT CPT-4: 9800370 08/14/2018 CEFTRIAXONE SODIUM I NJECTION CPT-4: J0696 07/02/2018 THER/PROPH/DIAG INJ SC/IM CPT-4: 62437 07/02/2018 THER/PROPH/DIAG INJ SC/IM CPT-4: 40654 07/02/2018 TRIAMCINOLONE ACET I [place] NOS CPT-4: J3301 07/02/2018 ROUTINE VENIPUNCTURE CPT-4: 67477 06/22/2018 ANTISTREPTOLYSIN O T ITER CPT-4: 05599 06/22/2018 ROUTINE VENIPUNCTURE CPT-4: 42737 06/17/2018 PROTHROMBIN TIME CPT-4: 33773 06/17/2018 URINE CULTURE/ COLON Y COUNT CPT-4: 18633 06/17/2018 CEFTRIAXONE SODIUM I NJECTION CPT-4: J0696 05/12/2018 THER/PROPH/DIAG INJ SC/IM CPT-4: 09451 05/12/2018 PROTHROMBIN TIME CPT-4: 07091 05/11/2018 CEFTRIAXONE SODIUM I NJECTION CPT-4: J0696 05/11/2018 THER/PROPH/DIAG INJ SC/IM CPT-4: 28615 05/11/2018 ROUTINE VENIPUNCTURE CPT-4: 79508 04/30/2018 PROTHROMBIN TIME CPT-4: 90208 04/30/2018 THER/PROPH/DIAG INJ SC/IM CPT-4: 07492 04/02/2018 TRIAMCINOLONE ACET I [place] NOS CPT-4: J3301 04/02/2018 IIV4 VACCINE 3 YRS+ IM AND UP CPT-4: 68771 03/24/2018 IMMUNIZATION ADMIN CPT- 4: 11717 03/24/2018 ROUTINE VENIPUNCTURE CPT-4: 82239 03/24/2018 PT CPT-4: 5655685 03/24/2018 PROTHROMBIN TIME CPT-4: 31547 02/24/2018 ROUTINE VENIPUNCTURE CPT-4: 38387 02/24/2018 ROUTINE VENIPUNCTURE CPT-4: 47239 02/05/2018 PROTHROMBIN TIME CPT-4: 79719 02/05/2018 URINE CULTURE/ COLON Y COUNT CPT-4: 31180 02/05/2018 CEFTRIAXONE SODIUM I NJECTION CPT-4: J0696 01/29/2018 THER/PROPH/DIAG INJ SC/IM CPT-4: 95359 01/29/2018 CEFTRIAXONE SODIUM I NJECTION CPT-4: J0696 01/28/2018 THER/PROPH/DIAG INJ SC/IM CPT-4: 10212 01/28/2018 URINALYSIS NONAUTO W /O SCOPE CPT-4: 38982 01/26/2018 URINE CULTURE/ COLON Y COUNT CPT-4: 79876 01/26/2018 ROUTINE VENIPUNCTURE CPT-4: 99265 01/01/2018 PROTHROMBIN TIME CPT-4: 74003 01/01/2018 THER/PROPH/DIAG INJ SC/IM CPT-4: 46310 12/25/2017 TRIAMCINOLONE ACET I NJ NOS CPT-4: J3301 12/25/2017 DEXAMETHASONE SODIUM PHOS CPT-4: J1100 12/25/2017 STREP A ASSAY W/OPTIC CPT-4: 57822 12/11/2017 CEFTRIAXONE SODIUM I NJECTION CPT-4: J0696 12/11/2017 THER/PROPH/DIAG INJ SC/IM CPT-4: 35627 12/11/2017 ROUTINE VENIPUNCTURE CPT-4: 86402 12/01/2017 ANTISTREPTOLYSIN O T ITER CPT-4: 30508 12/01/2017 PROTHROMBIN TIME CPT-4: 71547 12/01/2017 VITAMIN D TOTAL (25 HYDROXY) CPT-4: 89545 12/01/2017 VITAMIN B-12 CPT-4: 71087 12/01/2017 SPECIMEN HANDLING OF FICE-LAB CPT-4: 46356 11/05/2017 ROUTINE VENIPUNCTURE CPT-4: 46387 10/14/2017 ANTISTREPTOLYSIN O T ITER CPT-4: 52060 10/14/2017 ROUTINE VENIPUNCTURE CPT-4: 87029 10/06/2017 PROTHROMBIN TIME CPT-4: 21659 10/06/2017 THER/PROPH/DIAG INJ SC/IM CPT-4: 70668 10/06/2017 TRIAMCINOLONE ACET I NJ NOS CPT-4: J3301 10/06/2017 ROUTINE VENIPUNCTURE CPT-4: 99776 10/01/2017 VITAMIN B-12 CPT-4: 32016 10/01/2017 FOLIC ACID CPT-4: 69859 10/01/2017 ASSAY THYROID STIM H ORMONE CPT-4: 82981 10/01/2017 ASSAY OF FREE THYROXINE CPT-4: 91300 10/01/2017 ASSAY TRIIODOTHYRONI NE (T3) CPT-4: 35815 10/01/2017 ASSAY OF BLOOD/URIC ACID CPT-4: 81149 10/01/2017 RHEUMATOID FACTOR QUANT CPT-4: 51106 10/01/2017 RBC SED RATE AUTOMATED CPT-4: 76755 10/01/2017 ANTISTREPTOLYSIN O T ITER CPT-4: 49284 10/01/2017 ASSAY OF IRON CPT-4: 57076 10/01/2017 ASSAY OF FERRITIN CPT-4: 88510 10/01/2017 ANTINUCLEAR ANTIBODIES CPT-4: 20546 10/01/2017 A1C HPLC CPT-4: 63584 10/01/2017 VITAMIN D TOTAL (25 HYDROXY) CPT-4: 54519 10/01/2017 THER/PROPH/DIAG INJ SC/IM CPT-4: 05664 09/05/2017 TRIAMCINOLONE ACET I NJ NOS CPT-4: J3301 09/05/2017 URINALYSIS NONAUTO W /O SCOPE CPT-4: 75252 09/05/2017 URINE CULTURE/ COLON Y COUNT CPT-4: 47190 09/05/2017 ROUTINE VENIPUNCTURE CPT-4: 99608 09/04/2017 PROTHROMBIN TIME CPT-4: 56839 09/04/2017 ROUTINE VENIPUNCTURE CPT-4: 89599 08/07/2017 COMPLETE CBC W/AUTO DIFF WBC CPT-4: 87970 08/07/2017 COMPREHEN METABOLIC PANEL CPT-4: 99926 08/07/2017 PROTHROMBIN TIME CPT-4: 85152 08/07/2017 INFLUENZA ASSAY W/OPTIC CPT-4: 38877 07/15/2017 ROUTINE VENIPUNCTURE CPT-4: 53307 07/15/2017 COMPREHEN METABOLIC PANEL CPT-4: 47189 07/15/2017 COMPLETE CBC W/AUTO DIFF WBC CPT-4: 19042 07/15/2017 CEFTRIAXONE SODIUM I NJECTION CPT-4: J0696 07/04/2017 THER/PROPH/DIAG INJ SC/IM CPT-4: 85817 07/04/2017 THER/PROPH/DIAG INJ SC/IM CPT-4: 02506 07/04/2017 TRIAMCINOLONE ACET I NJ NOS CPT-4: J3301 07/04/2017 CEFTRIAXONE SODIUM I NJECTION CPT-4: J0696 07/02/2017 THER/PROPH/DIAG INJ SC/IM CPT-4: 44528 07/02/2017 CEFTRIAXONE SODIUM I NJECTION CPT-4: J0696 07/01/2017 THER/PROPH/DIAG INJ SC/IM CPT-4: 04597 07/01/2017 ROUTINE VENIPUNCTURE CPT-4: 76472 06/19/2017 PROTHROMBIN TIME CPT-4: 58392 06/19/2017 THER/PROPH/DIAG INJ SC/IM CPT-4: 63398 04/01/2017 TRIAMCINOLONE ACET I NJ NOS CPT-4: J3301 04/01/2017 ROUTINE VENIPUNCTURE CPT-4: 87097 02/10/2017 PROTHROMBIN TIME CPT-4: 03304 02/10/2017 URINALYSIS NONAUTO W /O SCOPE CPT-4: 28010 02/10/2017 URINE CULTURE/ COLON Y COUNT CPT-4: 53840 02/10/2017 ROUTINE VENIPUNCTURE CPT-4: 73378 02/05/2017 PROTHROMBIN TIME CPT-4: 45544 02/05/2017 THROAT CULTURE CPT-4: 51248 02/03/2017 STREP A ASSAY W/OPTIC CPT-4: 45229 01/13/2017 ROUTINE VENIPUNCTURE CPT-4: 77655 12/18/2016 PROTHROMBIN TIME CPT-4: 65041 12/18/2016 URINE CULTURE/ COLON Y COUNT CPT-4: 30263 08/27/2016 ASSAY THYROID STIM H ORMONE CPT-4: 85969 08/27/2016 COMPREHEN METABOLIC PANEL CPT-4: 99315 08/27/2016 COMPLETE CBC W/AUTO DIFF WBC CPT-4: 23313 08/27/2016 PROTHROMBIN TIME CPT-4: 78744 08/27/2016 ROUTINE VENIPUNCTURE CPT-4: 60697 08/27/2016 ROUTINE VENIPUNCTURE CPT-4: 97900 05/24/2016 COMPREHEN METABOLIC PANEL CPT-4: 27729 05/24/2016 PROTHROMBIN TIME CPT-4: 69100 05/24/2016 URINALYSIS NONAUTO W /O SCOPE CPT-4: 18281 04/23/2016 URINE CULTURE/ COLON Y COUNT CPT-4: 12345 04/23/2016 PRESCRIP TRANSMIT A ERX SY CPT-4: G8553 04/23/2016 AEROBIC WOUND CULTUR E & STN CPT-4: 23320 04/17/2016 ROUTINE VENIPUNCTURE CPT-4: 69911 04/11/2016 PROTHROMBIN TIME CPT-4: 85585 04/11/2016 ROUTINE VENIPUNCTURE CPT-4: 38488 03/12/2016 COMPLETE CBC W/AUTO DIFF WBC CPT-4: 98810 03/12/2016 COMPREHEN METABOLIC PANEL CPT-4: 34882 03/12/2016 ASSAY THYROID STIM H ORMONE CPT-4: 15967 03/12/2016 PROTHROMBIN TIME CPT-4: 53548 03/12/2016 ROUTINE VENIPUNCTURE CPT-4: 03973 02/12/2016 PROTHROMBIN TIME CPT-4: 37120 02/12/2016 ROUTINE VENIPUNCTURE CPT-4: 20495 02/01/2016 PROTHROMBIN TIME CPT-4: 89589 02/01/2016 ROUTINE VENIPUNCTURE CPT-4: 93142 01/22/2016 PROTHROMBIN TIME CPT-4: 36555 01/22/2016 ROUTINE VENIPUNCTURE CPT-4: 06692 11/10/2015 PROTHROMBIN TIME CPT-4: 51235 11/10/2015 CEFTRIAXONE SODIUM I NJECTION CPT-4: J0696 11/10/2015 THER/PROPH/DIAG INJ SC/IM CPT-4: 31359 11/10/2015 EB VIRUS VCA G/M + E BNA + EA CPT-4: 29978|29020 x 2|66549 016 THROAT CULTURE CPT-4: 19446 11/09/2015 STREP A ASSAY W/OPTIC CPT-4: 03595 11/09/2015 STREP A ASSAY W/OPTIC CPT-4: 81336 10/02/2015 ROUTINE VENIPUNCTURE CPT-4: 96076 09/29/2015 COMPLETE CBC W/AUTO DIFF WBC CPT-4: 60984 09/29/2015 ASSAY OF IRON CPT-4: 21789 09/29/2015 PROTHROMBIN TIME CPT-4: 68573 09/29/2015 ROUTINE VENIPUNCTURE CPT-4: 80563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 [facility] CPT-4: 93925 06/27/2015 ([id number]) OFFICE/OUTPA TIENT VISIT EST Diagnosis: half-way (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[ICD10: Z79.01] Kristine YULINE KalinImelda BRENNAN [facility] CPT-4: 58502 06/21/2015 OFFICE/OUTPATIENT SIT EST Diagnosis: Fibromyalgia[ICD10: M79.7] Kristine Yonathandanielcolin HOOKSKRISTINE KalinImelda BRENNAN [facility] CPT-4: 19717 06/08/2015 ([id number]) OFFICE/OUTPA TIENT VISIT EST Diagnosis: Dysuria[ICD10: R30.0] Kristine YULINE KalinImelda BRENNAN [employer] [facility] CPT-4: 15325 05/31/2015 OFFICE/OUTPATIENT SIT NEW Diagnosis: Localized enlarged lymph nodes[ICD10: R59.0] Diagnosis: Benign intracranial hypertension[ICD10: G93.2] Diagnosis: Personal history of pulmonary embolism[ICD10: Z86.711] Diagnosis: half-way (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[ICD10: Z79.01] Diagnosis: Tachycardia, unspecified[ICD10: R00.0] Meli McintyreMarcella KRISTINE S. O RENDER DO [employer] CPT-4: 73301 05/24/2015 Plan of Care Planned Activity Notes C odes Status Date Visit Diagnosis Plan: Epistaxis Disc ussion: Afrin to right nares BID x 3 days Check PT/INR now ICD-9 : 784.7 ICD-10 : R04.0 02/17/2019 Visit Diagnosis Plan: Radiculopathy, site unspecified Discussion: Check L/S spine x-ray to start with ICD-9 : 724.4 ICD-10 : M54.10 02/17/2019 Appointment: Kristine Brambila WPtel: [id number] ACUTE ILLNESS 02/17/2019 Care Plan: X-RAY EXAM L-S SPINE 2/3 VWS LOINC : 45048-6 Pending 02/17/2019 Appointment: Ivon Sky [address] [place], [place] [address] CANCELED 02/16/2019 Visit Diagnosis Plan: Unspecified urinary [...] ICD-10 : K58.1 02/08/2019 Appointment: Ivon Sky [address] [place], [place] [id number] ACUTE ILLNESS 02/08/2019 Patient Education: Anusol-HC- OptimizeRX Coupon [id number] https://www.[email or web address]/samplemd/resources/getResource/61/[email or web address] Completed 02/08/2019 Visit Diagnosis Plan: Other fatigue Discussion: will obtain cbc, aso, lft, pt/inr, mycoplasma, legionairres due to symptoms. educated patient that we will wait for results to be completed before administering medication due to patient being on multiple antibiotics int he past and risk of medications being ineffective for her. ICD-9 : 780.79 ICD-10 : R53.83 01/19/2019 Visit Diagnosis Plan: COUGH Discussi on: see other plans. sputum culture to be obtained as well. instructed patient to start taking daily allergy medication but patient does not believe it to be allergies and would like to wait for blood work to return. ICD-9 : 786.2 ICD-10 : R05 01/19/2019 Visit Diagnosis Plan: half-way (current ) use of 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 Discussion: pt/inr ordered ICD-9 : V58.61 ICD-10 : Z79.01 01/19/2019 Visit Diagnosis Plan: Abnormal levels of other serum e nzymes Discussion: updated LFT ordered. ICD-9 : 790.5 ICD-10 : R74.8 01/19/2019 Visit Diagnosis Plan: Acute pharyngitis due to other specified organisms Discussion: rapid strep neg. ICD-9 : 462 ICD-10 : J02.8 01/19/2019 Appointment: Ivon Sky [address] [place] [address] ACUTE ILLNESS 01/19/2019 Visit Diagnosis Plan: Otalgia, [...] ICD-10 : R53.83 01/04/2019 Appointment: Ivon Sky [address] [place] [address] ACUTE ILLNESS 01/04/2019 Appointment: Kristine Brambila WPtel: [address] [place] [address] LAB 12/18/2018 Appointment: Kristine Brambila WPtel: [address] [place] [address] ACUTE ILLNESS 12/16/2018 Visit Diagnosis Plan: Benign lipomatous neoplasm of skin and subcutaneous tissue of trunk Discussion: Monitor/Observe ICD-9 : 214.1 ICD-10 : D17.1 12/03/2018 Visit Diagnosis Plan: Anemia, unspecified Discussion: Check B12, iron, ferritin levels ICD-9 : 285.9 ICD-10 : D64.9 12/03/2018 Visit Diagnosis Plan: Other fatigue Discussion: Update CBC, TSH, Free T4, CMP ICD-9 : 780.79 ICD-10 : R53.83 12/03/2018 Appointment: Kristine Brambila WPtel: [address] [place], [place] [phone] ACUTE ILLNESS 12/03/2018 Visit Diagnosis Plan: Enlarged [...] ICD-10 : J02.9 12/02/2018 Appointment: Ivon Sky [address] [place] [address] FOLLOW UP 12/02/2018 Visit Diagnosis Plan: oysterman (current ) use of 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 Discussion: pt/inr drawn in office ICD-9 : V58.61 ICD-10 : Z79.01 11/30/2018 Visit Diagnosis Plan: Acute suppurative otitis media without spontaneous rupture of ear drum, left ear Discussion: rocephin shot given in office. instructed to call or rtc with any new or worsening concerns. tylenol prn pain. ICD-9 : 382.00 ICD-10 : H66.002 11/30/2018 Appointment: Ivon Sky [address] [place], [place] [id number] ACUTE ILLNESS 11/30/2018 Patient Education: Coumadin- OptimizeRX Coupon [id number] https://www.[employer] K.K.com/samplemd/resources/getResource/61/[email or web address] Completed 11/30/2018 Appointment: Kristine Brambila WPtel: [address] [place], [place] [phone] [place] UA 11/20/2018 Appointment: Kristine Brambila WPtel: [address] [place], [place] [phone] [place] INJECTION 11/12/2018 Visit Diagnosis Plan: Streptococcal pharyngitis Discussion: Strep A- positive ASO titer today along with CBC. Rocephin 1 gram. RTC tmrw for another injection. Patient states understanding. ICD-9 : 034.0 ICD-10 : J02.0 11/11/2018 Appointment: Lulu Navarro [facility] ACUTE ILLNESS 11/11/2018 Appointment: Kristine Brambila WPtel: [address] [place], [place] [id number] ACUTE ILLNESS 10/27/2018 Appointment: Kristine Brambila WPtel: [phone] [facility]6[address] INJECTION 10/09/2018 Visit Diagnosis Plan: Acute recurrent maxillary sinusi tis Discussion: Rocephin 1 gram administered in clinic- patient tolerated well. Continue with supportive treatment at home as well. Tylenol for headache. Salt water gargles and sinus rinses advised. Patient states understanding. ICD-9 : 461.0 ICD-10 : J01.10/08/2018 Appointment: Lulu Navarro [address] [place], [place] [phone] INJECTION 10/08/2018 Visit Diagnosis Plan: Acute recurrent maxillary sinusi tis Discussion: Rocephin- 1 gram administered in clinic. Patient tolerated well. Sinus rinses encouraged. Rest and fluids. Tylenol or Motrin for pain and fever. FU PRN. Patient states understanding. ICD-9 : 461.0 ICD-10 : J01.01 10/07/2018 Appointment: Lulu Navarro [facility] ACUTE ILLNESS 10/07/2018 Visit Diagnosis Plan: Dizziness [...] ICD-10 : R42 09/25/2018 Appointment: Lulu Navarro [address] [place] [address] ACUTE ILLNESS 09/25/2018 Appointment: Kristine Brambila WPtel: [address] [place] [address] UA 09/10/2018 Visit Diagnosis Plan: Furuncle right [...] : R22.1 09/08/2018 Appointment: Kristine Brambila WPtel: [address] [place] [address] ACUTE ILLNESS 09/08/2018 Patient Education: cefdinir- OptimizeRX Coupon [id number] https://www.He[employer] K.K.com/samplemd/resources/getResource/61/[email or web address]-s7 Completed 09/08/2018 Appointment: Kristine Brambila WPtel: [address] [place] [address] LAB 08/14/2018 Visit Diagnosis Plan: Acute sinusitis, [...] : H92.02 07/23/2018 Appointment: Ivon Sky [address] ACUTE ILLNESS 07/23/2018 Patient Education: cyclobenzaprine- Opti mizeRX Coupon [id number] https://www.[employer] K.[employer].com/samplemd/resources/getResource/61/x166p2pj-t298-938a-fj [email or web address].pdf Completed 07/23/2018 Visit Diagnosis Plan: Streptococcal infe ction, unspecified site Discussion: Pen V K Sees dentist today t o assess tooth ICD-9 : 041.00 ICD-10 : A49.1 07/08/2018 Appointment: Kristine Brambila WPtel: [address] [place] [address] FOLLOW UP 07/08/2018 Patient Education: penicillin V potassiu m- OptimizeRX Coupon [id number] https://www.[employer]/samplemd/resources/getResource/61/tx547628-6650-8970-62 -61748jy72g7c.pdf Completed 07/08/2018 Visit Diagnosis Plan: Localized enlarged [...] ICD-10 : K04.6 07/02/2018 Appointment: Ivon Sky [address] [place] [address] ACUTE ILLNESS 07/02/2018 Appointment: Kristine Brambila WPtel: [address] [place], [place] [phone] [place] LAB 06/22/2018 Appointment: Kristine Brambila WPtel: [address] [place], [place] [address] UA 06/17/2018 Visit Diagnosis Plan: Acute sinusitis, unspecified Discussion: dc keflex. start cefdinir daily for 10 days. saline up nares prn congestion. if no improvement after antibiotics or worsening symtpoms, call clinic. ICD-9 : 461.9 ICD-10 : J01.90 06/02/2018 Appointment: Ivon Sky [address] [place], [place] [id number] ACUTE ILLNESS 06/02/2018 Appointment: Kristine Brambila WPtel: [address] [place], [place] [phone] INJECTION 05/12/2018 Visit Diagnosis Plan: oysterman (current ) use of 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 Discussion: pt/inr [...] ICD-10 : H70.002 05/11/2018 Appointment: Ivon Sky [address] [place], [place] [phone] FOLLOW UP 05/11/2018 Appointment: Kristine Brambila WPtel: [address] [place], [place] [address] LAB 04/30/2018 Visit Diagnosis Plan: Acute sinusitis, unspecified Discussion: 40 mg kenalog given to patient in office. clindamycin prescribed for patient to take as directed. instructed to stop nasal sprays due to worsening pain/irritation and only use saline rinse up nares for now. call with any new or worsening symptoms. ICD-9 : 461.9 ICD-10 : J01.90 04/02/2018 Appointment: Ivon Sky 504 [facility] ACUTE ILLNESS 04/02/2018 Patient Education: Patient Medication Summary Completed 04/02/2018 Appointment: Kristine Brambila WPtel: [address] [place] [address] [place] LAB 03/24/2018 Patient Education: Patient Medication [...] ICD-10 : G43.909 03/16/2018 Appointment: Ivon Sky [address] [place] [address] ACUTE ILLNESS 03/16/2018 Patient Education: Patient Medication Summary Completed 03/16/2018 Appointment: Kristnie Brambila WPtel: [address] [place] [address] LAB 02/24/2018 Patient Education: Patient Medication Summary Completed 02/24/2018 Appointment: Kristine Brambila WPtel: [address] [place] [address] RESCHEDULED 02/18/2018 Visit Diagnosis Plan: Abdominal distension (gaseous) Discussion: Wanda Restora Rx 1 daily Follow Up: 2 weeks ICD-9 : 787.3 ICD-10 : R14.0 02/16/2018 Visit Diagnosis Plan: Epigastric pain Discussion: Pepcid BID ICD-9 : 789.06 ICD-10 : R10.13 02/16/2018 Visit Diagnosis Plan: Diarrhea, unspecified Discussion: Wanda ICD-9 : 787.91 ICD-10 : R19.7 02/16/2018 Appointment: Kristine Brambila WPtel: [address] [place] [address] ACUTE ILLNESS 02/16/2018 Patient Education: Patient Medication Summary Completed 02/16/2018 Appointment: Kristine Brambila WPtel: [phone] [facility] [place] INJECTION 02/05/2018 Patient Education: Patient Medication Summary Completed 02/05/2018 Appointment: Kristine Brambila WPtel: [phone] [facility] [place] INJECTION 01/29/2018 Patient Education: Patient Medication Summary Completed 01/29/2018 Appointment: Kristine Brambila WPtel: [phone] [facility] [place] INJECTION 01/28/2018 Patient Education: Patient Medication [...] ICD-10 : H66.001 01/26/2018 Appointment: Ivon Sky [address] [place] [address] ACUTE ILLNESS 01/26/2018 Patient Education: Patient Medication [...] ICD-10 : K13.79 01/01/2018 Appointment: Ivon Sky [address] [place], [place] [id number] ACUTE ILLNESS 01/01/2018 Patient Education: Patient Medication [...] ICD-10 : G43.909 12/25/2017 Appointment: Ivon Sky [address] [place] [address] ACUTE ILLNESS 12/25/2017 Patient Education: Patient Medication Summary Completed 12/25/2017 Visit Diagnosis Plan: Acute pharyngitis, unspecified Discussion: rapid strep negative. rocephin injection given in office. clindamycin prescribed as well to start tomorrow for 10 days. increase fluid intake. call or rtc next week if new or worsening symptoms. ICD-9 : 462 ICD-10 : J02.9 12/11/2017 Appointment: Ivon Sky [address] [place], [place] [phone] ACUTE ILLNESS 12/11/2017 Patient Education: Patient Medication Summary Completed 12/11/2017 Appointment: Kristine Brambila WPtel: [phone] [facility] LAB 12/01/2017 Patient Education: Patient Medication Summary Completed 12/01/2017 Visit Diagnosis Plan: Encounter for gyne cological examination (general) (routine) without abnormal findings Discussion: Pap done as has a history of choriocarcinoma Had mammogram last month ICD-9 : V72.31 ICD-10 : Z01.419 11/05/2017 Appointment: Kristine Brambila WPtel: [address] [place] [address] Annual Well Visit 11/05/2017 Patient Education: Patient Medication Summary Completed 11/05/2017 Appointment: Kristine Brambila WPtel: [address] [place] [address] LAB 10/14/2017 Patient Education: Patient Medication Summary Completed 10/14/2017 Care Plan: X-RAY EXAM OF SHOULDER right LOINC : 51377-8 Pending 10/07/2017 Visit Diagnosis Plan: Pain in right shoulder Discussion: xray ordered of right shoulder to rule out fracture. 40 mg kenalog given as one shot to assist with pain. ICD-9 : 719.41 ICD-10 : M25.511 10/06/2017 Visit Diagnosis Plan: oysterman (current ) use of 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 Discussion: pt/inr completed at today's visit. ICD-9 : V58.61 ICD-10 : Z79.01 10/06/2017 Appointment: Ivon Sky [address] [place] [address] ACUTE ILLNESS 10/06/2017 Patient Education: Patient Medication [...] : I73.00 10/01/2017 Appointment: Kristine Brambila WPtel: [address] [place] [address] ACUTE ILLNESS 10/01/2017 Patient Education: Patient Medication [...] ICD-10 : T23.262A 09/10/2017 Appointment: Ivon Sky [address] [place] [address] ACUTE ILLNESS 09/10/2017 Patient Education: Patient Medication Summary Completed 09/10/2017 Appointment: Kristine Brambila WPtel: [address] [place] [address] [place] INJECTION 09/05/2017 Patient Education: Patient Medication Summary Completed 09/05/2017 Appointment: Kristine Brambila WPtel: [address] [place] [address] LAB 09/04/2017 Patient Education: Patient Medication Summary Completed 09/04/2017 Appointment: Kristine Brambila WPtel: [address] [place] [address] LAB 08/07/2017 Patient Education: Patient Medication Summary Completed 08/07/2017 Patient Education: Patient Medication Summary Completed 07/21/2017 Care Plan: CHEST X-RAY 2VW FRONTAL&LATL LOINC : 94952-4 Pending 07/21/2017 Visit Diagnosis Plan: Acute upper [...] ICD-10 : K21.9 07/15/2017 Appointment: Ivon Sky [address] [place] [address] ACUTE ILLNESS 07/15/2017 Patient Education: Patient Medication Summary Completed 07/15/2017 Appointment: Kristine Brambila WPtel: [address] [place], [place] [phone] [place] INJECTION 07/04/2017 Patient Education: Patient Medication Summary Completed 07/04/2017 Appointment: Kristine Brambila WPtel: [phone] [facility] [place] INJECTION 07/02/2017 Patient Education: Patient Medication [...] ICD-10 : H66.92 07/01/2017 Appointment: Ivon Sky [address] [place] [address] ACUTE ILLNESS 07/01/2017 Patient Education: Patient Medication Summary Completed 07/01/2017 Care Plan: US EXAM OF HEAD AND NECK Pending 07/01/2017 Appointment: Kristine Brambila WPtel: [phone] [facility] LAB 06/19/2017 Patient Education: Patient Medication [...] ICD-10 : J18.9 05/27/2017 Appointment: Ivon Sky [address] [place] [address] ACUTE ILLNESS 05/27/2017 Patient Education: Patient Medication [...] ICD-10 : G47.00 05/20/2017 Appointment: Ivon Sky [address] [place] [address] ACUTE ILLNESS 05/20/2017 Patient Education: Patient Medication Summary Completed 05/20/2017 Visit Diagnosis Plan: Headache Discu ssion: Discussed likely Migraine Discussed MRI results Discussed changing acetazolamide to HCTZ ICD-9 : 784.0 ICD-10 : R51 04/22/2017 Visit Diagnosis Plan: Diplopia Discu ssion: Updated dilated eye exam ICD-9 : 368.2 ICD-10 : H53.2 04/22/2017 Appointment: Kristine Brambila WPtel: [address] [place] [address] FOLLOW UP 04/22/2017 Patient Education: Patient Medication Summary Completed 04/22/2017 Appointment: Kristine Brambila WPtel: [address] [place], [place] [phone] [place] RESCHEDULED 04/07/2017 Visit Plan: Saline nasal flushes pr n. Tylenol/Motrin prn headache. Notify if persists/symptoms worsening. 04/01/2017 Visit Plan: Saline nasal flushes pr n. Tylenol/Motrin prn headache. Notify if persists/symptoms worsening. 04/01/2017 Visit NOS Plan: Plan Notes: Saline nasal flushes prn. Tyle... 04/01/2017 Visit Diagnosis Plan: Acute sinusitis, unspecified Discussion: Kenalog 40mg IM x1 Decadron/Garamycin Nose Mcintyre Mix Has appointment on April 28 with ENT ICD-9 : 461.9 ICD-10 : J01.90 04/01/2017 Appointment: Kristine Brambila WPtel: [facility]6[address] ACUTE ILLNESS 04/01/2017 Patient Education: Patient Medication Summary Completed 04/01/2017 Referral: Serjio Lugo WPtel: [address] [facility] 3 [id number] [place] Referral Appointment Requested 03/20/2017 Patient Education: Patient Medication Summary Completed 02/27/2017 Care Plan: CT ABDOMEN W/O DYE abd/pe lvis stone search LOINC : 80688-7 Pending 02/27/2017 Patient Education: Patient Medication Summary Completed 02/12/2017 Care Plan: MRI NECK SPINE W/O DYE LOINC : 19331-1 Pending 02/12/2017 Appointment: Kristine Brambila WPtel: [facility]6[address] LAB 02/10/2017 Patient Education: Patient Medication Summary [...] : M54.2 02/05/2017 Appointment: Kristine Brambila WPtel: [address] [place], [place] [address] ACUTE ILLNESS 02/05/2017 Patient Education: Patient Medication Summary Completed 02/05/2017 Care Plan: Referral Order SNOMED-CT : [id number] Pending 02/05/2017 Appointment: Kristine Brambila WPtel: [address] [place] [address] THROAT SWAB 02/03/2017 Patient Education: Patient Medication Summary Completed 02/03/2017 Appointment: Kristine Brambila WPtel: [address] [place] [address] 01/13 canceled~sl CANCELED 01/28/2017 Visit Plan: Supportive [...] : J02.8 01/13/2017 Appointment: Kristine Brambila WPtel: [address] [place] [address] ACUTE ILLNESS 01/13/2017 Patient Education: Patient Medication Summary Completed 01/13/2017 Appointment: Kristine rBambila WPtel: [address] [place] [address] LAB 12/18/2016 Patient Education: Patient Medication Summary Completed 12/18/2016 Visit Diagnosis Plan: Pain in unspecified joint Discussion: Will retry methotrexate since has worked in past to greatly reduce patient's pain--4 tabs week one then 5 tabs week 2 then 6 tabs weekly and fwup in 6 weeks ICD-9 : 719.49 ICD-10 : M25.50 11/27/2016 Appointment: Kristine Brambila WPtel: [address] [place], [place] [phone] [place] 11/26 lm~sl 11/26 confimed~sl MEDICATION REVIEW 11/27/2016 Patient Education: Patient Medication Summary Completed 11/27/2016 Visit Plan: Supportive care. Rest, Fluids, Tylenol/Motrin prn fever or bodyaches. Notify if worsening symptoms. 08/27/2016 Visit Plan: Supportive care. Rest, Fluids, Tylenol/Motrin prn fever or bodyaches. Notify if worsening symptoms. 08/27/2016 Visit NOS Plan: Plan Notes: Support gauri care. Rest, Fluids... 08/27/2016 Visit Diagnosis Plan: half-way (current ) use of 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 Discussion: PT/INR drawn ICD-9 : V58.61 ICD-10 : Z79.01 08/27/2016 Visit Diagnosis Plan: Dysuria Discus steven: Culture urine ICD-9 : 788.1 ICD-10 : R30.0 08/27/2016 Visit Diagnosis Plan: URI, ACUTE Dis cussion: Supportive care ICD-9 : 465.9 ICD-10 : J06.9 08/27/2016 Appointment: Kristine Brambila WPtel: [address] [place], [place] [address] 08/26 confirmed`sl MEDICATION REVIEW 08/27/2016 Patient Education: Patient Medication Summary Completed 08/27/2016 Appointment: Kristine Brambila WPtel: [address] [place], [place] [phone] BP CHECK 07/08/2016 Patient Education: Patient Medication Summary Completed 07/08/2016 Appointment: Kristine Brambila WPtel: [address] [place], [place] [address] LAB 05/24/2016 Patient Education: Patient Medication Summary Completed 05/24/2016 Appointment: Kristine Brambila WPtel: [facility] [place] [id number] 04/24 will not be able to get [...] with culture results 04/23/2016 Appointment: Nayeli Anderson [address] [place] [address] ACUTE ILLNESS 04/23/2016 Patient Education: Patient Medication [...] add oral abx 04/17/2016 Appointment: Nayeli Anderson Geovanny [address] ACUTE ILLNESS 04/17/2016 Patient Education: Patient Medication Summary Completed 04/17/2016 Patient Education: [facility] - Saving AutoInj - 18-64 - Dynamic Portal ID Completed 04/17/2016 Appointment: Kristine Brambila WPtel: [facility]6[address] LAB 04/11/2016 Patient Education: Patient Medication [...] for migraines 03/12/2016 Appointment: Krist[facility]amb[facility]el[facility] [facility] 03/12 confirmed-sp FOLLOW UP 03/12/2016 Patient Education: Patient Medication Summary Completed 03/12/2016 Appointment: Kristine Brambila WPtel[phone] [facility] [facility] 02/12/2016 Patient Education: Patient Medication Summary Completed 02/12/2016 Appointment: Kristine Brambila WPtel[phone] [facility] [facility] 02/01/2016 Patient Education: Patient Medication Summary Completed 02/01/2016 Appointment: Kristine Brambila WPtel: [phone] [facility] LAB 01/22/2016 Patient Education: Patient Medication Summary [...] no improvement 11/10/2015 Appointment: Julee Slater WPtel: [phone] [facility] ACUTE ILLNESS 11/10/2015 Patient Education: Patient Medication [...] care otherwise 11/09/2015 Appointment: [facility]ayeli Anderson [facility] [facility] 11/09/2015 Patient Education: Patient Medication Summary Completed 11/09/2015 Referral: Maximiliano Neves WPtel: [phone] [id number] [place] Spoke with Sally at Dr. Ta's offic e. Patient is scheduled for 10/16/15 at 3:15pm. Demographics and notes have been faxed. Patient has been informed. -sp Initi ated 10/16/2015 Visit Plan: Proceed with biopsy/rem oval of right posterior neck node Mammogram ordered--US of right axilla if needed 10/10/2015 Appointment: Kristine Brambila WPtel[phone] [facility] 10/08 confirmed ~sl FOLLOW UP 10/10/2015 Patient Education: Patient Medication Summary Completed 10/10/2015 Patient Education: [facility] - Saving AutoInj - 18-64 - Dynamic Portal ID Completed 10/10/2015 Care Plan: MAMMOGRAM SCREENING LOINC : 86481-6 Pending 10/10/2015 Visit Plan: Labs ordered - peripher al smear, tsh, b12 - see order requisition Soft tissue US of neck ordered as well to further evaluate mass to right reported to be there over a year Antibiotic as well for URI that is not resolving - rapid strep was negative Diflucan given - Dr rBambila aware and ok Discussed INR with Dr Brambila - coumadin change as above Refill written for hydros - needs to keep appt with Dr Brambila for next week for 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 medical terminology management of pain 10/02/2015 Visit Plan: Labs [...] with Dr Brambila for next week for halfway management of pain 10/02/2015 Appointment: Justin Nayeli [address] ACUTE ILLNESS 10/02/2015 Patient Education: Patient Medication Summary Completed 10/02/2015 Patient Education: [facility] - Saving AutoInj - 18-64 - Dynamic Portal ID Completed 10/02/2015 Care Plan: US EXAM OF HEAD AND NECK Pending 10/02/2015 Appointment: Kristine Brambila WPtel: [address] [place], [place] [phone] [place] LAB 09/29/2015 Patient Education: Patient Medication Summary Completed 09/29/2015 Appointment: Kristine Brambila WPtel: [address] [place], [place] [id number] 07/27/2015 Patient Education: Patient Medication Summary Completed 07/27/2015 Visit Plan: Trial of Savella Did no t tolerate lyrica Did not tolerate cymbalta 07/10/2015 Appointment: Kristine Brambila WPtel: [address] [place], [place] [phone] 07/10 appt confirmed cn FOLLOW UP 07/10/2015 Patient Education: Patient Medication Summary Completed 07/10/2015 Appointment: Kristine Brambila WPtel: [address] [place], [place] [phone] [place] [address] 06/30/2015 Patient Education: Patient Medication Summary Completed 06/30/2015 Visit Plan: Recommended Vitamin E o il topically bid to area of scar. Currently taking Amoxicillin for sinusitis. Recommend Flonase nasal spray 06/27/2015 Visit Plan: Recommended Vitamin E o il topically bid to area of scar. Currently taking Amoxicillin for sinusitis. Recommend Flonase nasal spray 06/27/2015 Appointment: Meli Hatch WPtel: [address] [place], [place] [phone] ACUTE ILLNESS 06/27/2015 Patient Education: Patient Medication Summary Completed 06/27/2015 Appointment: Meli Hatch WPtel: [address] [place], [place] [phone] 06/22/15 appt confirmed and she will drea ng new insurance card cn ACUTE ILLNESS 06/26/2015 Appointment: Kristine Brambila WPtel: [address] [place], [place] [phone] LAB 06/21/2015 Patient Education: Patient Medication Summary Completed 06/21/2015 Visit Plan: Add cymbalta at 30mg da loli Repeat PT/INR in 2weeks Recheck 1mo Awaiting ID to reschedule 06/08/2015 Visit Plan: Add cymbalta at 30mg da loli Repeat PT/INR in 2weeks Recheck 1mo Awaiting ID to reschedule 06/08/2015 Appointment: Kristine Brambila WPtel: [address] [place] [address] 06/07 lm ~sl 06/08 confirmed ~sl FOLLOW UP 06/08/2015 Patient Education: Patient Medication Summary Completed 06/08/2015 Patient Education: [facility] - Saving AutoInj - Cymbalta - 18-64 - Dynamic Portal ID Completed 06/08/2015 Patient Education: [facility] - Saving AutoInj - 18-64 - Dynamic Portal ID Completed 06/08/2015 Appointment: Kristine Brambila WPtel: [address] [place], [place] [phone]A 05/31/2015 Patient Education: Patient Medication Summary Completed 05/31/2015 Visit Plan: Check PT/INR today Stop ped Lyrica due to fluid retention Has appt. scheduled at [facility] with hematology and infectious disease 06/08 Follow-up appt. in 2 weeks following appt. at . 05/24/2015 Visit Plan: Check PT/INR today Stop ped Lyrica due to fluid retention Has appt. scheduled at [facility] with hematology and infectious disease 06/08 Follow-up appt. in 2 weeks following appt. at . 05/24/2015 Appointment: Meli Hatch WPtel: [address] [place] [address] NEW PATIENT 05/24/2015 Patient Education: Patient Medication Summary Completed 05/24/2015 Patient Education: [facility] - Saving AutoInj - 18-64 - Dynamic Portal ID Completed 05/24/2015 Referral: Annamarie Melo WPtel: [facility] [address] [id number] [place] Referral Initiated Instructions Comment . Rapid strep [...] to fluid retention Has appt. scheduled at [facility] with hematology and infectious disease 06/08 Follow-up appt. in 2 weeks following appt. at . . Check PT/INR today Stopped Lyrica due to fluid retention Has appt. scheduled at [facility] with hematology and infectious disease 06/08 Follow-up [...] with Dr Brambila for next week for halfway management of pain . Labs ordered - [...] with Dr Brambila for next week for halfway management of pain . Recommended Vitami n [...]
--- OUTSIDE RECORDS SUMMARY | 2020-01-28 13:41 | XMS REPORT | CCD ---
Author Author Heydi Hatch APRN Organization [facility] Address [address] [place] [address] Phone Care Team Providers Care Professional Security Officer Name Role Phone Kristine Brambila D.O., PP Unavailable CCM Unavailable Summary Purpose Interface Exchange Insurance Providers Payer name Policy type / Coverage type Covered alliance party ID Effective Begin Date Effective End Date Blue Cross Blue Shield Blue Cross/Bl ue Shield [id number] 2018 Un known Family History Family History data not found Social History Social History Element Codes Description Effective Dates Tobacco history SNOMED CT: [id number] Current every day smoker 06/08/2015 Allergies, Adverse [...] ICD-9: 786.2 ICD-10: R05 Active 07/21/2017 Unknown terminal carman (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 ICD-9: V58.61 ICD-10: [...] 02/10/2017 Unknown Pelvic and perineal pain ICD-9: [id number] ICD-10: R10.2 Active 02/10/2017 Unknown Cervicalgia ICD-9: [...] COUGH ICD-9: 786.2 ICD-10: R05 07/21/2017 Active terminal carman (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 ICD-9: V58.61 ICD-10: [...] 02/10/2017 Active Pelvic and perineal pain ICD-9: [id number] ICD-10: R10.2 02/10/2017 Active Cervicalgia ICD-9: 723.1 [...] Codes Instruc tions Start Date Stop Date Fill Instructions Vitamin D2 50,000 un it capsule RxNorm: 5230401 1 CAPSULE(S) PO QW 02/26/2019 08/24/2019 Active warfarin 5 mg tablet RxNorm: 636411 1 Tablet(s) PO QD 02/17/2019 04/17/2019 Active acetazolamide 125 mg tablet RxNorm: 778067 1 TABLET(S) PO BID 02/15/2019 04/15/2019 Active cholestyramine (with sugar) 4 gram oral powder RxNorm: 111616 1 UNIT DOSE PO QD 02/15/2019 04/15/2019 Ac tive penicillin V potassi um 500 mg tablet RxNorm: 952158 1 Tablet(s) PO BID 02/10/2019 02/09/2019 In active penicillin V potassi um 500 mg tablet RxNorm: 613848 1 Tablet(s) PO BID 02/10/2019 02/16/2019 In active Diflucan 150 mg tablet RxNorm: 392847 TABLET(S) 1 TABLET(S) PO QW NEEDED 02/08/2019 No Stop Date Active Anusol-HC 25 mg rect al suppository RxNorm: 9840811 1 Suppository RTL QD as needed 02/08/2019 03/09/2019 Ac tive hydrocodone 10 mg-ac etaminophen 325 mg tablet RxNorm: 419859 1 Tablet(s) PO Q4-6H as needed for pain 02/01/2019 No Stop Date Active hydrocodone 10 mg-ac etaminophen 325 mg tablet RxNorm: 367635 1 Tablet(s) PO Q4-6H as needed for pain 02/01/2019 No Stop Date Active Diflucan 150 mg tablet RxNorm: 112850 Tablet(s) TABLET(S) 1 TABLET(S) PO QW NEEDED 01/28/2019 No Stop Date Active Vistaril 25 mg capsule RxNorm: 242246 1 Capsule(s) PO TID 01/27/2019 07/25/2019 Active ProAir HFA 90 mcg/ac tuation aerosol inhaler RxNorm: 300605 2 Puff(s) INH Q4H as needed 01/20/2019 No Stop Date Active Tessalon Perles 100 mg capsule RxNorm: 693988 1 Capsule(s) PO TID a s needed for cough 01/20/2019 No Stop Date Active doxycycline hyclate 100 mg capsule RxNorm: 2008489 1 Capsule(s) PO BID 01/20/2019 01/19/2019 In active doxycycline hyclate 100 mg capsule RxNorm: 1541173 1 Capsule(s) PO BID 01/20/2019 01/26/2019 In active Coumadin 5 mg tablet RxNorm: 511176 1 Tablet(s) PO QD (on Fri, , Fri, , Fri and Fri) 01/05/2019 06/09/2019 Active Generic For:COUMADIN 5MG TAB 05/25/2018 3:20:45 PM N O T I C E Last quantity doesn't match original quantity amoxicillin 500 mg c apsule RxNorm: 342241 1 Capsule(s) PO BID 01/05/2019 01/14/2019 Inactive amoxicillin 500 mg c apsule RxNorm: 700961 1 Capsule(s) PO BID 01/05/2019 01/04/2019 Inactive hydrocodone 10 mg-ac etaminophen 325 mg tablet RxNorm: 212187 1 Tablet(s) PO Q4-6H as needed for pain 01/01/2019 01/31/2019 Inactive cyclobenzaprine 10 m g tablet RxNorm: 176676 1 TABLET(S) PO QD NEEDED 12/23/2018 06/20/2019 Ac tive Coumadin 5 mg tablet RxNorm: 620552 Tablet(s) TAKE 1 TABLET(S) BY MOUTH FRI, FRI, FRI, Friday12/23/2018 01/04/2019 Inactive Generic For:COUMADIN 5MG TA B 05/25/2018 3:20:45 PM N O T I C E Last quantity doesn't match original quantity Diflucan 150 mg tablet RxNorm: 390232 Tablet(s) TABLET(S) 1 TABLET(S) PO QW NEEDED 12/23/2018 01/27/2019 Inactive Vitamin D2 50,000 un it capsule RxNorm: 5236329 1 Capsule(s) PO QW 12/04/2018 02/25/2019 Inactive Medrol (Juan Francisco) 4 mg ta blets in a dose pack RxNorm: 932423 Tablet(s) PO as direc liane 12/04/2018 12/03/2018 In active Vitamin D2 50,000 un it capsule RxNorm: 4693699 1 Capsule(s) PO QW 12/04/2018 12/03/2018 Inactive Medrol (Juan Francisco) 4 mg ta blets in a dose pack RxNorm: 037400 Tablet(s) PO as direc liane 12/04/2018 01/19/2019 In active Zithromax Z-Juan Francisco 250 mg tablet RxNorm: 786288 Tablet(s) PO take as directed 12/02/2018 02/16/2019 In active Vistaril 25 mg capsule RxNorm: 552914 Capsule(s) 1 Capsule(s) PO TID as needed for anxiety 11/30/2018 02/27/2019 Active Coumadin 5 mg tablet RxNorm: 329267 Tablet(s) TAKE 1 TABLET(S) BY MOUTH FRI, FRI, FRI, Friday11/30/2018 12/22/2018 Inactive Generic For:COUMADIN 5MG TA B 05/25/2018 3:20:45 PM N O T I C E Last quantity doesn't match original quantity Diflucan 150 mg tablet RxNorm: 096557 Tablet(s) TABLET(S) 1 TABLET(S) PO QW NEEDED 11/26/2018 12/22/2018 Inactive cholestyramine (with sugar) 4 gram oral powder RxNorm: 301134 1 UNIT DOSE PO QD 11/24/2018 02/14/2019 In active acetazolamide 125 mg tablet RxNorm: 584006 1 Tablet(s) PO BID 11/24/2018 02/14/2019 Inactive cyclobenzaprine 10 m g tablet RxNorm: 545738 1 Tablet(s) PO QD as needed 11/17/2018 12/22/2018 In active hydrocodone 10 mg-ac etaminophen 325 mg tablet RxNorm: 839224 1 Tablet(s) PO Q4-6H as needed for pain 11/05/2018 01/31/2019 Inactive acetazolamide 125 mg tablet RxNorm: 535302 1 TABLET(S) PO BID 10/26/2018 11/23/2018 Inactive cholestyramine (with sugar) 4 gram oral powder RxNorm: 678310 1 UNIT DOSE PO QD 10/26/2018 11/23/2018 In active Coumadin 5 mg tablet RxNorm: 062464 TAKE 1 TABLET(S) BY MOUTH FRI, FRI, FRI, Friday10/26/2018 11/29/2018 Inactive Generic For:COUMADIN 5MG TAB 05/25/2018 3:20:45 PM N O T I C E Last quantity doesn't match original quantity Diflucan 150 mg tablet RxNorm: 611898 TABLET(S) 1 TABLET(S) PO QW NEEDED 10/26/2018 11/25/2018 In active hydrocodone 10 mg-ac etaminophen 325 mg tablet RxNorm: 738795 1 Tablet(s) PO Q4-6H as needed for pain 10/08/2018 11/04/2018 Inactive acetazolamide 125 mg tablet RxNorm: 344643 1 Tablet(s) PO BID 09/24/2018 10/23/2018 Inactive Coumadin 5 mg tablet RxNorm: 855659 TAKE 1 TABLET(S) BY MOUTH FRI, FRI, FRI, Friday09/24/2018 10/25/2018 Inactive Generic For:COUMADIN 5MG TAB 05/25/2018 3:20:45 PM N O T I C E Last quantity doesn't match original quantity Diflucan 150 mg tablet RxNorm: 057765 Tablet(s) 1 Tablet(s) PO QW as needed 09/24/2018 10/25/2018 In active cyclobenzaprine 10 m g tablet RxNorm: 990695 1 Tablet(s) PO QD as needed 09/24/2018 11/16/2018 In active Vistaril 25 mg capsule RxNorm: 254553 1 Capsule(s) PO TID as needed for anxiet y 09/24/2018 11/29/2018 In active cholestyramine (with sugar) 4 gram oral powder RxNorm: 494301 1 Unit Dose PO QD 09/24/2018 10/23/2018 In active Pyridium 200 mg tablet RxNorm: 8778558 1 Tablet(s) PO TID 09/10/2018 09/19/2018 Inactive Pyridium 200 mg tablet RxNorm: 1044441 1 Tablet(s) PO TID 09/10/2018 09/09/2018 Inactive hydrocodone 10 mg-ac etaminophen 325 mg tablet RxNorm: 504724 1 Tablet(s) PO Q4-6H as needed for pain 09/08/2018 10/07/2018 Inactive cefdinir 300 mg capsule RxNorm: 703670 1 Capsule(s) PO BID 09/08/2018 09/21/2018 Inactive hydrocodone 10 mg-ac etaminophen 325 mg tablet RxNorm: 992780 1 Tablet(s) PO Q4-6H as needed for pain 08/13/2018 09/07/2018 Inactive cyclobenzaprine 10 m g tablet RxNorm: 839319 1 Tablet(s) PO QD as needed 07/23/2018 09/23/2018 In active Diflucan 150 mg tablet RxNorm: 620286 Tablet(s) 1 Tablet(s) PO QW as needed 07/23/2018 09/23/2018 In active Ciprodex 0.3 %-0.1 % ear drops,suspension RxNorm: 530264 4 Drop(s) left otic ( ear) BID 07/23/2018 07/29/2018 Inactive hydrocodone 10 mg-ac etaminophen 325 mg tablet RxNorm: 999184 1 Tablet(s) PO Q4-6H as needed for pain 07/16/2018 08/12/2018 Inactive penicillin V potassi um 500 mg tablet RxNorm: 478753 1 Tablet(s) PO Q6H 07/08/2018 07/17/2018 In active cyclobenzaprine 10 m g tablet RxNorm: 152762 1 Tablet(s) PO QD as needed 06/22/2018 07/22/2018 In active Vistaril 25 mg capsule RxNorm: 426167 1 Capsule(s) PO TID as needed for anxiet y 06/22/2018 09/23/2018 In active cholestyramine (with sugar) 4 gram oral powder RxNorm: 304232 1 Unit Dose PO QD 06/22/2018 09/23/2018 In active hydrocodone 10 mg-ac etaminophen 325 mg tablet RxNorm: 595735 1 Tablet(s) PO Q4-6H as needed for pain 06/17/2018 07/15/2018 Inactive cefdinir 300 mg capsule RxNorm: 600318 1 Capsule(s) PO BID 06/02/2018 06/11/2018 Inactive Diflucan 150 mg tablet RxNorm: 527754 Tablet(s) 1 Tablet(s) PO QW as needed 06/02/2018 07/22/2018 In active Coumadin 5 mg tablet RxNorm: 119692 TAKE 1 TABLET(S) BY MOUTH FRI, FRI, FRI, Friday05/25/2018 07/15/2018 Inactive Generic For:COUMADIN 5MG TAB 05/25/2018 3:20:45 PM N O T I C E Last quantity doesn't match original quantity Imitrex 50 mg tablet RxNorm: 046076 Tablet(s) 1 Tablet(s) PO at headache. re peat in 2 hours if no relief. no more than 2 tabs per day 05/19/2018 No Stop Date Active cholestyramine (with sugar) 4 gram oral powder RxNorm: 819098 1 Unit Dose PO QD 05/19/2018 11/14/2018 In active Vistaril 25 mg capsule RxNorm: 152371 1 Capsule(s) PO TID 05/19/2018 11/14/2018 Inactive Coumadin 5 mg tablet RxNorm: 601998 Tablet(s) TAKE 1 TABLET(S) BY MOUTH FRI, FRI, FRI, Friday05/19/2018 05/24/2018 Inactive Generic For:COUMADIN 5MG TA B N O T I C E Last quantity doesn't match original quantity acetazolamide 125 mg tablet RxNorm: 214805 1 Tablet(s) PO BID 05/19/2018 09/23/2018 Inactive cyclobenzaprine 10 m g tablet RxNorm: 594556 1 Tablet(s) PO QD as needed 05/19/2018 11/17/2018 In active Coumadin 7.5 mg tablet RxNorm: 201779 1 Tablet(s) PO QD Tu, Th, 05/19/2018 01/04/2019 In active ketorolac 10 mg tablet RxNorm: 685920 1 Tablet(s) PO QHS as needed 05/11/2018 No Stop Date Active promethazine 12.5 mg tablet RxNorm: 038695 1 Tablet(s) PO Q6H as needed 04/23/2018 04/22/2018 In active acetazolamide 125 mg tablet RxNorm: 514566 1 Tablet(s) PO BID 04/23/2018 05/18/2018 Inactive Coumadin 5 mg tablet RxNorm: 621888 TAKE 1 TABLET(S) BY MOUTH FRI, FRI, FRI, Friday04/23/2018 05/18/2018 Inactive Generic For:COUMADIN 5MG TAB N O T I C E Last quantity doesn't match original quantity Imitrex 50 mg tablet RxNorm: 614520 1 Tablet(s) PO at headache. repeat in 2 hours if no relief. no more than 2 tabs per day 04/23/2018 05/18/2018 Inactive cyclobenzaprine 10 m g tablet RxNorm: 354366 1 Tablet(s) PO QD as needed 04/23/2018 05/18/2018 In active clindamycin HCl 300 mg capsule RxNorm: 312424 1 Capsule(s) PO TID 04/02/2018 04/11/2018 Inactive hydrocodone 10 mg-ac etaminophen 325 mg tablet RxNorm: 091572 1 Tablet(s) PO Q4-6H as needed for pain 03/24/2018 06/16/2018 Inactive promethazine 12.5 mg tablet RxNorm: 610457 1 Tablet(s) PO Q6H 03/23/2018 04/23/2018 Inactive Imitrex 50 mg tablet RxNorm: 284131 1 Tablet(s) PO at headache. repeat in 2 hours if no relief. no more than 2 tabs per day 03/23/2018 04/22/2018 Inactive Diflucan 150 mg tablet RxNorm: 374687 1 Tablet(s) PO QW as needed 03/23/2018 06/01/2018 Inactive Coumadin 5 mg tablet RxNorm: 725205 Tablet(s) 1 Tablet(s) PO Mon, Wed, Fri, Sun 03/23/2018 04/22/2018 In active Imitrex 100 mg tablet RxNorm: 130070 Tablet(s) PO take one tablet at sign of headache and repeat in 2 hours if ineffective 03/16/2018 04/01/2018 Inactive ondansetron HCl 4 mg tablet RxNorm: 373486 1 Tablet(s) PO Q4H as needed for nausea 02/24/2018 04/01/2018 In active hydrocodone 10 mg-ac etaminophen 325 mg tablet RxNorm: 725615 1 Tablet(s) PO Q4-6H as needed for pain 02/24/2018 03/23/2018 Inactive Coumadin 5 mg tablet RxNorm: 773529 Tablet(s) 1 Tablet(s) PO Mon, Wed, Fri, Sun 02/20/2018 03/22/2018 In active promethazine 12.5 mg tablet RxNorm: 102566 1 Tablet(s) PO Q6H 02/20/2018 03/22/2018 Inactive Pepcid 40 mg tablet RxNorm: 109131 1 Tablet(s) PO BID for stomach 02/16/2018 03/17/2018 In active Flagyl 500 mg tablet RxNorm: 526055 1 Tablet(s) PO TID 02/16/2018 02/25/2018 Inactive Imitrex 50 mg tablet RxNorm: 791610 1 Tablet(s) PO at headache. repeat in 2 hours if no relief. no more than 2 tabs per day 01/27/2018 03/15/2018 Inactive Coumadin 5 mg tablet RxNorm: 743139 1 Tablet(s) PO Mon, Wed, Fri, Sun 01/27/2018 02/20/2018 In active amoxicillin 875 mg t ablet RxNorm: 835940 1 Tablet(s) PO BID 01/26/2018 02/04/2018 Inactive Imitrex 50 mg tablet RxNorm: 276971 1 Tablet(s) PO at headache. repeat in 2 hours if no relief. no more than 2 tabs per day 01/26/2018 03/22/2018 Inactive cyclobenzaprine 10 m g tablet RxNorm: 349085 1 Tablet(s) PO QD as needed 01/23/2018 03/23/2018 In active promethazine 12.5 mg tablet RxNorm: 450938 1 Tablet(s) PO Q6H 01/23/2018 02/19/2018 Inactive Diflucan 150 mg tablet RxNorm: 537197 1 Tablet(s) PO QW as needed 01/22/2018 03/22/2018 Inactive acetazolamide 125 mg tablet RxNorm: 130240 1 Tablet(s) PO BID 01/22/2018 04/21/2018 Inactive Imitrex 50 mg tablet RxNorm: 944813 1 Tablet(s) PO at headache. repeat in 2 hours if no relief. no more than 2 tabs per day 01/02/2018 01/25/2018 Inactive Ciprodex 0.3 %-0.1 % ear drops,suspension RxNorm: 776374 4 Drop(s) otic (ear) BID 01/01/2018 01/07/2018 In active Coumadin 7.5 mg tablet RxNorm: 387325 1 Tablet(s) PO QD , Th, 12/29/2017 05/18/2018 In active Coumadin 5 mg tablet RxNorm: 328837 1 Tablet(s) PO Mon, Wed, Fri, Sun 12/29/2017 01/26/2018 In active cyclobenzaprine 10 m g tablet RxNorm: 346593 1 Tablet(s) PO QD as needed 12/29/2017 01/22/2018 In active clindamycin HCl 300 mg capsule RxNorm: 659148 1 Capsule(s) PO TID 12/26/2017 12/25/2017 Inactive Imitrex 50 mg tablet RxNorm: 147895 1 Tablet(s) PO at headache. repeat in 2 hours if no relief. no more than 2 tabs per day 12/26/2017 01/01/2018 Inactive clindamycin HCl 300 mg capsule RxNorm: 046208 1 Capsule(s) PO TID 12/26/2017 01/04/2018 Inactive Zithromax Z-Juan Francisco 250 mg tablet RxNorm: 500123 Tablet(s) PO take as directed 12/25/2017 12/25/2017 In active promethazine 12.5 mg tablet RxNorm: 968238 1 Tablet(s) PO Q6H 12/25/2017 01/22/2018 Inactive clindamycin HCl 300 mg capsule RxNorm: 126263 1 Capsule(s) PO TID 12/11/2017 12/17/2017 Inactive Vistaril 25 mg capsule RxNorm: 739026 1 Capsule(s) PO TID as needed for anxiet y 12/04/2017 05/18/2018 In active cholestyramine (with sugar) 4 gram oral powder RxNorm: 118861 1 Unit Dose PO QD 12/04/2017 05/18/2018 In active Coumadin 7.5 mg tablet RxNorm: 310346 1 Tablet(s) PO QD 12/04/2017 12/28/2017 Inactive Coumadin 5 mg tablet RxNorm: 882676 1 Tablet(s) PO Friday through Friday12/04/2017 12/28/2017 In active hydrocodone 10 mg-ac etaminophen 325 mg tablet RxNorm: 835020 1 Tablet(s) PO Q4-6H as needed for pain 12/01/2017 02/23/2018 Inactive hydrocodone 10 mg-ac etaminophen 325 mg tablet RxNorm: 752483 1 Tablet(s) PO Q4-6H as needed for pain 11/03/2017 11/30/2017 Inactive cyclobenzaprine 10 m g tablet RxNorm: 064180 1 Tablet(s) PO QD as needed 10/30/2017 12/28/2017 In active cholestyramine (with sugar) 4 gram oral powder RxNorm: 223917 1 Unit Dose PO QD 10/30/2017 11/28/2017 In active amoxicillin 875 mg t ablet RxNorm: 038799 1 Tablet(s) PO BID 10/08/2017 10/07/2017 Inactive amoxicillin 875 mg t ablet RxNorm: 109558 1 Tablet(s) PO BID 10/08/2017 10/17/2017 Inactive penicillin V potassi um 500 mg tablet RxNorm: 467199 1 Tablet(s) PO BID 10/06/2017 10/07/2017 In active hydrocodone 10 mg-ac etaminophen 325 mg tablet RxNorm: 462334 1 Tablet(s) PO Q4-6H as needed for pain 10/06/2017 11/02/2017 Inactive hydrocodone 10 mg-ac etaminophen 325 mg tablet RxNorm: 682220 1 Tablet(s) PO Q4-6H as needed for pain 10/06/2017 12/31/2018 Inactive Vigamox 0.5 % eye drops RxNorm: 989112 1 Drop(s) ophthalmic (eye) TID ONLY ADMI NISTER IF INFECTION 10/03/2017 10/02/2017 Inactive Vigamox 0.5 % eye drops RxNorm: 692960 1 Drop(s) ophthalmic (eye) TID ONLY ADMI NISTER IF INFECTION 10/03/2017 10/09/2017 Inactive cholestyramine (with sugar) 4 gram oral powder RxNorm: 294039 1 Unit Dose PO QD 09/23/2017 10/30/2017 In active acetazolamide 125 mg tablet RxNorm: 830936 1 Tablet(s) PO BID 09/23/2017 12/21/2017 Inactive Coumadin 5 mg tablet RxNorm: 913852 1 Tablet(s) PO QD FRIDAY THROUGH Friday09/17/2017 11/04/2017 In active mupirocin 2 % topica l ointment RxNorm: 023692 1 Application TOP TID 09/10/2017 11/04/2017 Inactive hydrocodone 10 mg-ac etaminophen 325 mg tablet RxNorm: 357724 1 Tablet(s) PO Q4-6H as needed for pain 09/08/2017 10/05/2017 Inactive Questran 4 gram powd er for susp in a packet RxNorm: 679622 MIX ONE PACKET IN 6 O UNCES OF APPLE SAUCE OR OTHER SOFT FOOD AND EAT ONCE DAILY 09/02/2017 11/04/2017 Inactive Diflucan 150 mg tablet RxNorm: 930373 1 Tablet(s) PO QW as needed 08/14/2017 01/21/2018 Inactive hydrocodone 10 mg-ac etaminophen 325 mg tablet RxNorm: 879041 1 Tablet(s) PO Q4-6H as needed for pain 08/11/2017 09/07/2017 Inactive Tamiflu 75 mg capsule RxNorm: 668358 1 Capsule(s) PO QD 08/11/2017 08/10/2017 Inactive Tamiflu 75 mg capsule RxNorm: 867432 1 Capsule(s) PO QD 08/11/2017 08/20/2017 Inactive Coumadin 5 mg tablet RxNorm: 766885 1 Tablet(s) PO QD FRIDAY THROUGH Friday07/22/2017 09/16/2017 In active Coumadin 5 mg tablet RxNorm: 436393 TAKE ONE TABLET BY MOUTH ONCE DAILY THROUGH ABEL 07/16/2017 07/21/2017 Inactive cyclobenzaprine 10 m g tablet RxNorm: 602517 1 Tablet(s) PO QD as needed 07/15/2017 10/30/2017 In active hydrocodone 10 mg-ac etaminophen 325 mg tablet RxNorm: 691826 1 Tablet(s) PO Q4-6H as needed for pain 07/14/2017 08/10/2017 Inactive warfarin 5 mg tablet RxNorm: 620826 1 Tablet(s) PO Fri Sat Jamee nt is due for PT/INR 06/18/2017 02/16/2019 Inactive Questran Light 4 gra m powder for susp in a packet RxNorm: 7486886 1 PO QD 06/18/2017 11/04/2017 In active cyclobenzaprine 10 m g tablet RxNorm: 070610 1 Tablet(s) PO QD as needed 06/18/2017 07/14/2017 In active hydrocodone 10 mg-ac etaminophen 325 mg tablet RxNorm: 230973 1 Tablet(s) PO Q4-6H as needed for pain 06/18/2017 07/13/2017 Inactive Lunesta 1 mg tablet RxNorm: 555942 1 Tablet(s) PO QHS as needed 05/27/2017 06/25/2017 Inactive Zithromax Z-Juan Francisco 250 mg tablet RxNorm: 355809 1 Tablet(s) PO Take a s directed 05/27/2017 11/04/2017 In active ProAir HFA 90 mcg/ac tuation aerosol inhaler RxNorm: 980802 2 Puff(s) INH Q4H 05/27/2017 01/19/2019 In active ProAir HFA 90 mcg/ac tuation aerosol inhaler RxNorm: 914077 2 Puff(s) INH Q4H 05/27/2017 05/26/2017 In active promethazine 6.25 mg -codeine 10 mg/5 mL syrup RxNorm: 137788 5 Milliliter(s) PO Q4 H as needed 05/27/2017 11/04/2017 Inactive Diflucan 150 mg tablet RxNorm: 889237 1 Tablet(s) PO QW as needed 05/26/2017 05/25/2017 Inactive cyclobenzaprine 10 m g tablet RxNorm: 568878 1 Tablet(s) PO QD as needed 05/20/2017 06/18/2017 In active Lunesta 2 mg tablet RxNorm: 183924 1 Tablet(s) PO QHS 05/20/2017 05/27/2017 Inactive Zithromax Z-Juan Francisco 250 mg tablet RxNorm: 635711 Tablet(s) PO As Direc liane 05/12/2017 05/19/2017 In active cyclobenzaprine 5 mg tablet RxNorm: 676922 1 Tablet(s) PO QPM 03/28/2017 05/19/2017 Inactive Vistaril 25 mg capsule RxNorm: 993414 1 Capsule(s) PO TID as needed for anxiet y 03/28/2017 09/23/2017 In active Questran 4 gram powd er for susp in a packet RxNorm: 482372 1 Unit(s) PO QD 03/06/2017 06/18/2017 In active Cipro 500 mg tablet RxNorm: 658959 1 Tablet(s) PO BID 02/27/2017 02/26/2017 Inactive Pyridium 200 mg tablet RxNorm: 4096728 1 Tablet(s) PO TID for bladder spasms 02/27/2017 03/31/2017 In active Cipro 500 mg tablet RxNorm: 957742 1 Tablet(s) PO BID 02/27/2017 03/05/2017 Inactive Levsin 0.125 mg tablet RxNorm: 0807003 1 Tablet(s) PO QID as needed for spasm 02/25/2017 11/04/2017 In active tamsulosin 0.4 mg ca psule RxNorm: 002084 1 Capsule(s) PO QPM 02/25/2017 03/26/2017 Inactive tamsulosin 0.4 mg ca psule RxNorm: 719119 1 Capsule(s) PO QPM 02/25/2017 02/24/2017 Inactive Pyridium 100 mg tablet RxNorm: 3884375 1 Tablet(s) PO TID as needed 02/21/2017 03/31/2017 In active acetazolamide 125 mg tablet RxNorm: 785994 1 Tablet(s) PO BID 02/07/2017 09/23/2017 Inactive Questran 4 gram powd er for susp in a packet RxNorm: 783946 1 Unit(s) PO QD 02/06/2017 03/06/2017 In active cyclobenzaprine 5 mg tablet RxNorm: 999897 1 Tablet(s) PO QPM 02/05/2017 03/27/2017 Inactive BuSpar 5 mg tablet RxNorm: 090687 1 Tablet(s) PO BID 02/03/2017 03/31/2017 Inactive Diflucan 150 mg tablet RxNorm: 780844 1 Tablet(s) PO QW as needed 01/15/2017 05/26/2017 Inactive Valtrex 1 gram tablet RxNorm: 259052 1 Tablet(s) PO TID 01/13/2017 01/19/2017 Inactive Vistaril 25 mg capsule RxNorm: 785268 1 Capsule(s) PO TID as needed for anxiet y 01/13/2017 03/27/2017 In active hydrocodone 10 mg-ac etaminophen 325 mg tablet RxNorm: 873636 1 Tablet(s) PO Q4-6H as needed for pain 01/13/2017 06/17/2017 Inactive Questran 4 gram powd er for susp in a packet RxNorm: 404166 1 Unit(s) PO QD 01/13/2017 09/23/2017 In active acetazolamide 125 mg tablet RxNorm: 699056 1 Tablet(s) PO BID 01/13/2017 02/06/2017 Inactive methotrexate (PF) 20 mg/0.4 mL subcutaneous auto-injector RxNorm: 2095979 Milliliter(s) SQ QW 12/26/2016 01/05/2017 Inactive Compazine 10 mg tablet RxNorm: 652645 1 Tablet(s) PO TID as needed for nausea 12/18/2016 11/04/2017 In active hydrocodone 10 mg-ac etaminophen 325 mg tablet RxNorm: 015005 1 Tablet(s) PO Q4-6H as needed for pain 12/17/2016 01/12/2017 Inactive Questran 4 gram powd er for susp in a packet RxNorm: 447660 1 Unit(s) PO QD 12/17/2016 01/13/2017 In active cyclobenzaprine 5 mg tablet RxNorm: 801741 1 Tablet(s) PO QPM 12/17/2016 02/05/2017 Inactive Questran Light 4 gra m powder for susp in a packet RxNorm: 3082624 1 PO QD 11/29/2016 06/17/2017 In active Zofran ODT 4 mg disi ntegrating tablet RxNorm: 168891 1 Tablet(s) PO Q4H as needed for nausea 11/29/2016 12/17/2016 Inactive methotrexate sodium 2.5 mg tablet RxNorm: 146291 4 Tablet(s) PO week 1 then 5 tablets po week 2 then 6 tablets weekly 11/27/2016 12/25/2016 Inactive warfarin 7.5 mg tablet RxNorm: 080469 1 Tablet(s) PO three times weekly 11/14/2016 03/31/2017 In active warfarin 7.5 mg tablet RxNorm: 454736 1 Tablet(s) PO three times weekly 11/13/2016 11/13/2016 In active Diflucan 150 mg tablet RxNorm: 019022 1 Tablet(s) PO QW as needed 11/05/2016 01/14/2017 Inactive Vistaril 25 mg capsule RxNorm: 790362 1 Capsule(s) PO TID as needed for anxiet y 11/04/2016 11/03/2016 In active Coumadin 5 mg tablet RxNorm: 880946 1 Tablet(s) PO Friday through Friday11/04/2016 06/18/2017 In active acetazolamide 125 mg tablet RxNorm: 107790 1 Tablet(s) PO BID 11/04/2016 01/13/2017 Inactive sumatriptan 100 mg t ablet RxNorm: 572176 1 Tablet(s) PO at hea dache onset. May repeat in 2 hours if headache remains 11/04/2016 11/04/2017 Inactive Vistaril 25 mg capsule RxNorm: 373352 1 Capsule(s) PO TID as needed for anxiet y 11/04/2016 01/12/2017 In active hydrocodone 10 mg-ac etaminophen 325 mg tablet RxNorm: 007987 1 Tablet(s) PO Q4-6H as needed for pain 11/04/2016 12/16/2016 Inactive Coumadin 5 mg tablet RxNorm: 312615 TAKE ONE TABLET BY MOUTH ON SUN., MON., WED., AND FRI., AND TAKE ONE AND ONE-HALF TABLETS TUE., THUR., AND 10/16/2016 10/25/2016 In active Coumadin 5 mg tablet RxNorm: 815730 1 Tablet(s) PO Friday through Friday10/15/2016 11/03/2016 In active hydrocodone 10 mg-ac etaminophen 325 mg tablet RxNorm: 124899 1 Tablet(s) PO Q4-6H as needed for pain 10/14/2016 11/03/2016 Inactive hydrocodone 10 mg-ac etaminophen 325 mg tablet RxNorm: 969191 1 Tablet(s) PO Q4-6H as needed for pain 09/20/2016 10/13/2016 Inactive warfarin 7.5 mg tablet RxNorm: 277514 1 Tablet(s) PO three times weekly 09/20/2016 11/12/2016 In active Diflucan 150 mg tablet RxNorm: 736091 1 Tablet(s) PO QW as needed 08/20/2016 11/04/2016 Inactive acetazolamide 125 mg tablet RxNorm: 659964 1 Tablet(s) PO BID 08/20/2016 11/04/2016 Inactive Diflucan 150 mg tablet RxNorm: 784396 1 Tablet(s) PO QW as needed 08/20/2016 08/19/2016 Inactive Vistaril 25 mg capsule RxNorm: 186503 Capsule(s) TAKE ONE CAPSULE BY MOUTH THR EE TIMES DAILY NEEDED FOR ANXIETY 08/19/2016 11/04/2016 Inactive hydrocodone 10 mg-ac etaminophen 325 mg tablet RxNorm: 269219 1 Tablet(s) PO Q4-6H as needed for pain 08/05/2016 09/19/2016 Inactive Diflucan 150 mg tablet RxNorm: 507659 1 Tablet(s) PO QW as needed 07/19/2016 08/19/2016 Inactive tizanidine 4 mg tablet RxNorm: 840222 1-2 Tablet(s) PO QHS as needed for muscl e spasm and sleep 06/03/2016 06/10/2016 Inactive Questran Light 4 gra m powder for susp in a packet RxNorm: 9496568 1 PO QD 05/14/2016 08/11/2016 In active Macrobid 100 mg capsule RxNorm: 146882 1 Capsule(s) PO BID 04/23/2016 05/02/2016 Inactive mupirocin 2 % topica l ointment RxNorm: 004118 Apply topically to af fected area 2-3 times daily 04/17/2016 07/07/2016 Inactive Vistaril 25 mg capsule RxNorm: 977056 TAKE ONE CAPSULE BY MOUTH THREE TIMES DA LOLI NEEDED FOR ANXIETY 04/17/2016 11/04/2016 Inactive Diflucan 150 mg tablet RxNorm: 821690 1 Tablet(s) PO QW as needed 04/16/2016 07/18/2016 Inactive cyclobenzaprine 5 mg tablet RxNorm: 332463 TAKE ONE TABLET BY [facility] DAILY IN THE EVENING 03/25/2016 12/17/2016 Inactive Pyridium 100 mg tablet RxNorm: 0317637 1 Tablet(s) PO TID as needed 03/20/2016 03/19/2016 In active Diflucan 150 mg tablet RxNorm: 791634 1 Tablet(s) PO QW as needed 03/20/2016 04/15/2016 Inactive Pyridium 100 mg tablet RxNorm: 3435686 1 Tablet(s) PO TID as needed 03/20/2016 08/26/2016 In active Diflucan 150 mg tablet RxNorm: 788888 1 Tablet(s) PO QW as needed 03/19/2016 03/19/2016 Inactive Coumadin 7.5 mg tablet RxNorm: 277502 1 Tablet(s) PO QD 03/14/2016 05/12/2016 Inactive acetazolamide 125 mg tablet RxNorm: 363577 1 Tablet(s) PO BID 02/28/2016 08/20/2016 Inactive Coumadin 5 mg tablet RxNorm: 154480 1 TABLET(S) PO QD THREE TIMES A WEEK AND 1 1/2 TAB (7.5MG) FOUR TIMES A WEEK 02/28/2016 03/13/2016 Inactive Questran Light 4 gra m powder for susp in a packet RxNorm: 3996859 1 PO QD 02/13/2016 05/12/2016 In active Diflucan 150 mg tablet RxNorm: 086578 1 Tablet(s) PO QW as needed 01/19/2016 03/11/2016 Inactive Diflucan 150 mg tablet RxNorm: 253859 1 Tablet(s) PO QW as needed 01/18/2016 01/18/2016 Inactive promethazine 25 mg t ablet RxNorm: 226290 1 Tablet(s) PO Q4H as needed for nausea 12/05/2015 12/17/2016 In active Imitrex 100 mg tablet RxNorm: 834440 1 Tablet(s) PO at headache onset and may repeat in 2 hours if needed 12/05/2015 03/31/2017 Inactive Diflucan 150 mg tablet RxNorm: 177736 1 Tablet(s) PO QW as needed 11/24/2015 01/17/2016 Inactive Diflucan 150 mg tablet RxNorm: 004988 1 Tablet(s) PO QW as needed 11/21/2015 11/23/2015 Inactive Coumadin 5 mg tablet RxNorm: 058702 1 Tablet(s) PO QD three times a week and 1 1/2 tab (7.5mg) four times a week 11/13/2015 02/01/2016 Inactive Questran Light 4 gra m powder for susp in a packet RxNorm: 106176 1 PO QD 11/13/2015 02/10/2016 In active acetazolamide 125 mg tablet RxNorm: 961009 1 Tablet(s) PO BID 11/13/2015 02/10/2016 Inactive amoxicillin 875 mg t ablet RxNorm: 775051 1 Tablet(s) PO BID 11/09/2015 11/18/2015 Inactive Coumadin 7.5 mg tablet RxNorm: 641079 1 Tablet(s) PO on and 10/26/2015 10/25/2015 In active Coumadin 7.5 mg tablet RxNorm: 340074 1 Tablet(s) PO on and 10/26/2015 11/12/2015 In active Coumadin 5 mg tablet RxNorm: 941751 1 Tablet(s) PO Friday, Friday, Friday and Friday. 1.5 tablets Friday, and Friday. 10/26/2015 10/25/2015 Inactive Coumadin 5 mg tablet RxNorm: 862338 1 Tablet(s) PO Friday, Friday, Friday , and Friday. Take 1 1/2 on Friday, and Friday10/26/2015 11/12/2015 Inactive Coumadin 7.5 mg tablet RxNorm: 304672 1 Tablet(s) PO on and 10/26/2015 10/26/2015 In active Coumadin 5 mg tablet RxNorm: 357277 1 Tablet(s) PO Friday, Friday, Friday and Friday. 1.5 tablets Friday, and Friday. 10/26/2015 02/14/2016 Inactive Vistaril 25 mg capsule RxNorm: 332237 1 Capsule(s) PO TID as needed for anxiet y 10/10/2015 04/06/2016 In active cyclobenzaprine 5 mg tablet RxNorm: 616738 1 Tablet(s) PO QPM 10/10/2015 03/24/2016 Inactive Vistaril 25 mg capsule RxNorm: 627384 1 Capsule(s) PO TID as needed for anxiet y 10/10/2015 10/09/2015 In active cyclobenzaprine 5 mg tablet RxNorm: 782724 1 Tablet(s) PO QPM 10/10/2015 10/09/2015 Inactive Coumadin 5 mg tablet RxNorm: 464321 1 Tablet(s) PO Friday, Friday, Friday and Friday. 1.5 tablets Friday, and Friday. 10/02/2015 10/01/2015 Inactive Coumadin 5 mg tablet RxNorm: 480854 1 Tablet(s) PO Friday, Friday, Friday and Friday. 1.5 tablets Friday, and Friday. 10/02/2015 10/25/2015 Inactive amoxicillin 500 mg t ablet RxNorm: 631367 1 Tablet(s) PO TID 10/02/2015 10/11/2015 Inactive hydrocodone 10 mg-ac etaminophen 325 mg tablet RxNorm: 229495 1 Tablet(s) PO Q4-6H as needed for pain 10/02/2015 08/04/2016 Inactive Diflucan 150 mg tablet RxNorm: 214710 1 Tablet(s) PO QW as needed 10/02/2015 10/01/2015 Inactive amoxicillin 500 mg t ablet RxNorm: 603811 1 Tablet(s) PO TID 10/02/2015 10/01/2015 Inactive Diflucan 150 mg tablet RxNorm: 379914 1 Tablet(s) PO QW as needed 10/02/2015 10/09/2015 Inactive Coumadin 5 mg tablet RxNorm: 607319 1 Tablet(s) PO Mon.,Wed.,Fri., Sat. and Sun. 09/14/2015 10/01/2015 Inactive acetazolamide 125 mg tablet RxNorm: 871375 1 Tablet(s) PO BID 09/14/2015 11/12/2015 Inactive hydrocodone 10 mg-ac etaminophen 325 mg tablet RxNorm: 173481 1 Tablet(s) PO Q4-6H as needed for pain 09/01/2015 10/01/2015 Inactive Vistaril 25 mg capsule RxNorm: 746560 1 Capsule(s) PO TID as needed for anxiet y 08/24/2015 09/22/2015 In active baclofen 10 mg tablet RxNorm: 561521 1/2 Tablet(s) PO QAM and 1 tablet at bed time 07/27/2015 10/09/2015 Inactive Vistaril 25 mg capsule RxNorm: 065188 1 Capsule(s) PO BID 07/24/2015 08/22/2015 Inactive Savella 12.5 mg (5)- 25 mg(8)-50mg(42) tablets in a dose pack RxNorm: 412921 Tablet(s) PO as directed 07/10/2015 07/26/2015 Inactive hydrocodone 10 mg-ac etaminophen 325 mg tablet RxNorm: 054282 1 Tablet(s) PO Q6H as needed for pain 06/29/2015 08/10/2015 Inactive Coumadin 7.5 mg tablet RxNorm: 731420 1 Tablet(s) PO on and 06/21/2015 10/25/2015 In active Vistaril 25 mg capsule RxNorm: 735812 1 Capsule(s) PO BID 06/20/2015 07/24/2015 Inactive Cymbalta 30 mg capsu le,delayed release RxNorm: 282090 1 Capsule(s) PO QD 06/08/2015 07/09/2015 In active Coumadin 5 mg tablet RxNorm: 704612 1 Tablet(s) PO Mon.,Wed.,Fri., Sat. and Sun. 06/08/2015 07/07/2015 Inactive Coumadin 5 mg tablet RxNorm: 660216 1 Tablet(s) PO Mon.,Wed.,Fri., Sat. and Sun. 05/24/2015 06/07/2015 Inactive Coumadin 7.5 mg tablet RxNorm: 465156 1 Tablet(s) PO on and 05/24/2015 06/20/2015 In active Coumadin 7.5 mg tablet RxNorm: 648860 1 Tablet(s) PO on Friday No Start Date Active Vitamin B12 1000mcg Tablet RxNorm: 1/2 Tablet(s) PO QD No Start Date Active Bystolic 10 mg tablet RxNorm: 780291 3 Tablet(s) PO QAM No Start Date Active Vitamin D3 5,000 uni t tablet RxNorm: 491088 1 Tablet(s) PO QD No Start Date Active Bystolic 5 mg tablet RxNorm: 211230 1 Tablet(s) PO NOON No Start Date Active sumatriptan 100 mg t ablet RxNorm: 662875 1 Tablet(s) PO at hea dache onset. May repeat in 2 hours if headache remains No Start Date 11/03/2016 Inactive warfarin 7.5 mg tablet RxNorm: 689787 1 Tablet(s) PO three times weekly No Start Date 09/19/2016 Inactive ondansetron HCl 4 mg tablet RxNorm: 657557 1 Tablet(s) PO Q4H as needed for nausea No Start Date 02/23/2018 Inactive Imitrex 100 mg tablet RxNorm: 461373 1 Tablet(s) PO at headache onset and may repeat in 2 hours if needed No Start Date 12/04/2015 Inactive Vitamin B12 1000mcg Tablet RxNorm: 1/2 Tablet(s) PO on , T hurs, Sat and Sun and 1 tab all other days No Start Date 04/01/2018 Inactive warfarin 5 mg tablet RxNorm: 484874 1 Tablet(s) PO QD No Start Date 02/16/2019 Inactive baclofen 10 mg tablet RxNorm: 485566 1/2 Tablet(s) PO QAM and 1 tablet at bed time No Start Date 07/26/2015 Inactive tizanidine 4 mg tablet RxNorm: 273867 1-2 Tablet(s) PO QHS as needed for muscl e spasm and sleep No Start Date 06/02/2016 Inactive Flexeril 5 mg tablet RxNorm: 439635 1 Tablet(s) PO QD No Start Date 10/09/2015 Inactive methotrexate (PF) 20 mg/0.4 mL subcutaneous auto-injector RxNorm: 9329052 SQ QW No Start Date 12/25/2016 Inactive Bystolic 5 mg tablet RxNorm: 925823 1 Tablet(s) PO as needed No Start Date 03/15/2018 Inactive Questran Light 4 gra m powder for susp in a packet RxNorm: 711970 1 PO QD No Start Date 11/12/2015 Inactive Bystolic 10 mg tablet RxNorm: 106698 1 Tablet(s) PO QAM No Start Date 11/04/2017 Inactive warfarin 5 mg tablet RxNorm: 381218 1 Tablet(s) PO Fri Sun No Start Date 06/17/2017 Inactive hydrocodone 10 mg-ac etaminophen 325 mg tablet RxNorm: 351961 1 Tablet(s) PO 4-6hou rs as needed for pain No Start Date 08/31/2015 Inactive cyclobenzaprine 5 mg tablet RxNorm: 071721 1 Tablet(s) PO QPM No Start Date 12/16/2016 Inactive Lovenox 100 mg/mL carmona bcutaneous syringe RxNorm: 065925 1 Milliliter(s) SQ QD No Start Date 06/07/2015 Inactive Levsin 0.125 mg tablet RxNorm: 5817260 1 Tablet(s) PO QID as needed for spasm No Start Date 02/24/2017 Inactive Savella 12.5 mg (5)- 25 mg(8)-50mg(42) tablets in a dose pack RxNorm: 294926 Tablet(s) PO as directed No Start Date 07/09/2015 Inactive Coumadin 10 mg tablet RxNorm: 391424 1 Tablet(s) PO QD No Start Date 2015 Inactive tramadol 50 mg tablet RxNorm: 299575 1 Tablet(s) PO TID as needed for pain No Start Date 03/31/2017 Inactive BuSpar 5 mg tablet RxNorm: 033426 1 Tablet(s) PO BID No Start Date 02/02/2017 Inactive Vistaril 25 mg capsule RxNorm: 375918 1 Capsule(s) PO BID No Start Date 06/19/2015 Inactive Tessalon Perles 100 mg capsule RxNorm: 430643 1 Capsule(s) PO TID a s needed for cough No Start Date 01/19/2019 Inactive promethazine 12.5 mg tablet RxNorm: 777444 1 Tablet(s) PO Q6H as needed No Start Date 04/22/2018 Inactive Coumadin 7.5 mg tablet RxNorm: 457134 1 Tablet(s) PO Fri and Friday No Start Date 03/13/2016 Inactive Imitrex 50 mg tablet RxNorm: 463894 1 Tablet(s) PO at headache. repeat in 2 hours if no relief. no more than 2 tabs per day No Start Date 12/25/2017 Inactive acetazolamide 125 mg tablet RxNorm: 888331 1 Tablet(s) PO BID No Start Date 09/13/2015 Inactive methotrexate (PF) 12 .5 mg/0.4 mL subcutaneous auto-injector RxNorm: 9608907 1 Milliliter(s) SQ QW No Start Date 03/31/2017 Inactive Bystolic 10 mg tablet RxNorm: 568482 1 Tablet(s) PO QAM No Start Date 03/25/2018 Inactive Zithromax Z-Juan Francisco 250 mg tablet RxNorm: 532279 Tablet(s) PO As Direc liane No Start Date 05/11/2017 Inactive Bystolic 20 mg tablet RxNorm: 512224 1 Tablet(s) PO QD No Start Date 03/15/2018 Inactive Questran 4 gram powd er for susp in a packet RxNorm: 547434 1 Unit(s) PO QD No Start Date 12/16/2016 Inactive Vitamin D3 1,000 uni t tablet RxNorm: 532736 1 Tablet(s) PO QD No Start Date 04/01/2018 Inactive Coumadin 5 mg tablet RxNorm: 447400 1 Tablet(s) PO Friday through Friday No Start Date 03/13/2016 Inactive warfarin 5 mg tablet RxNorm: 923683 1 Tablet(s) PO four days per week No Start Date 04/01/2018 Inactive ProAir HFA 90 mcg/ac tuation aerosol inhaler RxNorm: 838478 2 Puff(s) INH Q4H as needed No Start Date 01/19/2019 Inactive Bystolic 5 mg tablet RxNorm: 817509 1 Tablet(s) PO QHS No Start Date 03/25/2018 Inactive Compazine 10 mg tablet RxNorm: 112347 1 Tablet(s) PO TID as needed for nausea No Start Date 12/17/2016 Inactive Pyridium 200 mg tablet RxNorm: 8262281 1 Tablet(s) PO TID for bladder spasms No Start Date 02/26/2017 Inactive hydrocodone 10 mg-ac etaminophen 325 mg tablet RxNorm: 895642 1 Tablet(s) PO as nee ded No Start Date 06/28/2015 Inactive warfarin 7.5 mg tablet RxNorm: 472394 1 Tablet(s) PO on Friday and No Start Date 04/01/2018 Inactive promethazine 25 mg t ablet RxNorm: 412938 1 Tablet(s) PO Q4H as needed for nausea No Start Date 12/04/2015 Inactive Lovenox 30 mg/0.3 mL subcutaneous syringe RxNorm: 479309 1 Milliliter(s) SQ QD No Start Date [...] 01/19/2019 COUGH ICD-10: R05 ICD-9: 786.2 01/19/2019 prison (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 ICD-10: Z79.01 ICD-9: [...] and perineal pain ICD-10: R10 .2 ICD-9: [id number] 02/10/2017 Hematuria, unspecified ICD-10: R31.9 ICD-9: 599.70 [...] urination 09/10/2018 and bladder pain fatigue 09/08/2018 Maninder ford is concerned lab draw 08/14/2018 otalgia 07/23/2018 follow up 07/08/2018 follow up 07/02/2018 Alivia pugh is currently on Amoxil for positive strep [...] clean out. follow up 01/01/2018 otalgia 12/25/2017 Patie nt was seen 2 weeks ago and given [...] 04/01/2017 lab draw 02/10/2017 neck pain 02/05/2017 Alivia ericlogan was just started on Buspar follow up [...] 06/08/2015 Fro m KU follow up 05/31/2015 alivia pugh has history of intestitial cystitis ~generic 05/24/2015 Esta [facility] care Results Observation Observation Code Item Item Code Result Date ANTI STREPTOLYSIN O TITER(ASO) 47834 ASO Titr 110 IU/mL 9 MYCOPLASMA ANTIBODY, IFA [id number] Mycoplas Ab IgG 1:64 01/20/2019 MYCOPLASMA ANTIBODY, IFA [id number] Mycoplas Ab IgM <1:10 01/20/2019 MYCOPLASMA ANTIBODY, IFA [id number] Mycoplasma Intp See Below 01/20/2019 LEGIONELLA [id number] Legio adore Ab <1:128 01/20/2019 HEPATIC FUNCTION PANEL A 52785 Total Protein 6.3 g/dL 01/19/2019 HEPATIC FUNCTION PANEL A 64624 AST 16 U/L 01/19/2019 HEPATIC FUNCTION PANEL A 52839 ALK PHOS 52 U/L 01/19/2019 HEPATIC FUNCTION PANEL A 15175 Bili Total 0.2 mg/dL 01/19/2019 HEPATIC FUNCTION PANEL A 51920 ALT 20 U/L 01/19/2019 HEPATIC FUNCTION PANEL A 54675 ALBUMIN 4.3 g/dL 01/19/2019 HEPATIC FUNCTION PANEL A 30505 Bili Direct 0.1 mg/dL 01/19/2019 PT 2763146 PT 27.5 Seconds 01/19/2019 PT 1535840 INR 2.6 01/19/2019 COMPLETE BLOOD COUNT 7664072 WBC 11.1 10e9/L 01/19/2019 COMPLETE BLOOD COUNT 0375721 RBC 4.14 10e12/L 9 COMPLETE BLOOD COUNT 2558881 HEMOGLOBIN 13.9 g/dL 01/19/2019 COMPLETE BLOOD COUNT 2959035 HEMATOCRIT 40.7 % 01/19/2019 COMPLETE BLOOD COUNT 7956761 MCV 98.3 fL 01/19/2019 COMPLETE BLOOD COUNT 9853605 MCH 33.6 pg 01/19/2019 COMPLETE BLOOD COUNT 1336132 MCHC 34.2 g/dL 01/19/2019 COMPLETE BLOOD COUNT 4049000 PLATELET COUNT 334 10e9/L 01/19/2019 COMPLETE BLOOD COUNT 8788423 Mean Plt Volume 8.9 fL 01/19/2019 COMPLETE BLOOD COUNT 8320860 Neut Auto 60.2 % 01/19/2019 COMPLETE BLOOD COUNT 2421477 Lymph Auto 32.5 % 01/19/2019 COMPLETE BLOOD COUNT 4258425 Loíza Auto 6.1 % 01/19/2019 COMPLETE BLOOD COUNT 8300915 RDW 12.5 % 01/19/2019 COMPLETE BLOOD COUNT 3151760 Eos Auto 1.0 % 01/19/2019 COMPLETE BLOOD COUNT 3437619 Baso Auto 0.2 % 01/19/2019 COMPLETE BLOOD COUNT 4658011 Neutrophil Abs 6.68 10e9/L 01/19/2019 COMPLETE BLOOD COUNT 7351035 Lymphocyte Abs 3.61 10e9/L 01/19/2019 COMPLETE BLOOD COUNT 0501850 Monocyte Abs 0.68 10e9/L 01/19/2019 COMPLETE BLOOD COUNT 3375817 Eosinophil Abs 0.11 10e9/L 01/19/2019 COMPLETE BLOOD COUNT 9293242 RDW-SD 43.4 fL 01/19/2019 COMPLETE BLOOD COUNT 1577857 Basophil Abs 0.02 10e9/L 01/19/2019 COMPLETE BLOOD COUNT 1565197 WBC 7.4 10e9/L 12/18/2018 COMPLETE BLOOD COUNT 3309425 RBC 4.32 10e12/L 9 COMPLETE BLOOD COUNT 1576836 HEMOGLOBIN 14.2 g/dL 12/18/2018 COMPLETE BLOOD COUNT 1140925 HEMATOCRIT 42.0 % 12/18/2018 COMPLETE BLOOD COUNT 3186818 MCV 97.2 fL 12/18/2018 COMPLETE BLOOD COUNT 9592527 MCH 32.9 pg 12/18/2018 COMPLETE BLOOD COUNT 0817030 MCHC 33.8 g/dL 12/18/2018 COMPLETE BLOOD COUNT 7263293 PLATELET COUNT 273 10e9/L 12/18/2018 COMPLETE BLOOD COUNT 4987415 Mean Plt Volume 9.4 fL 12/18/2018 COMPLETE BLOOD COUNT 5341911 Neut Auto 57.7 % 12/18/2018 COMPLETE BLOOD COUNT 9262640 Lymph Auto 34.8 % 12/18/2018 COMPLETE BLOOD COUNT 1543710 Loíza Auto 6.4 % 12/18/2018 COMPLETE BLOOD COUNT 4022824 RDW 12.6 % 12/18/2018 COMPLETE BLOOD COUNT 1352626 Eos Auto 0.8 % 12/18/2018 COMPLETE BLOOD COUNT 5657833 Baso Auto 0.3 % 12/18/2018 COMPLETE BLOOD COUNT 2296737 Neutrophil Abs 4.27 10e9/L 12/18/2018 COMPLETE BLOOD COUNT 7514250 Lymphocyte Abs 2.58 10e9/L 12/18/2018 COMPLETE BLOOD COUNT 7834607 Monocyte Abs 0.47 10e9/L 12/18/2018 COMPLETE BLOOD COUNT 0720152 Eosinophil Abs 0.06 10e9/L 12/18/2018 COMPLETE BLOOD COUNT 1899273 RDW-SD 43.8 fL 12/18/2018 COMPLETE BLOOD COUNT 0739229 Basophil Abs 0.02 10e9/L 12/18/2018 GFR CALC 1218747 GFR Non Afr Amr >60 mL/min 12/18/2018 GFR CALC 2483399 GFR Afr Amr >60 mL/min 12/18/2018 COMPREHENSIVE METABOLIC 63027 AST 33 U/L 12/18/2018 COMPREHENSIVE METABOLIC 82470 ALT 60 U/L 12/18/2018 COMPREHENSIVE METABOLIC 28917 BUN 9 mg/dL 12/18/2018 COMPREHENSIVE METABOLIC 35419 ALBUMIN 4.3 g/dL 12/18/2018 COMPREHENSIVE METABOLIC 96704 CHLORIDE 104 mmol/L 12/18/2018 COMPREHENSIVE METABOLIC 57728 Bili Total 0.3 mg/dL 12/18/2018 COMPREHENSIVE METABOLIC 21105 ALK PHOS 63 U/L 12/18/2018 COMPREHENSIVE METABOLIC 20643 SODIUM 139 mmol/L 12/18/2018 COMPREHENSIVE METABOLIC 90636 CREATININE 0.55 mg/dL 12/18/2018 COMPREHENSIVE METABOLIC 27502 CALCIUM 9.0 mg/dL 12/18/2018 COMPREHENSIVE METABOLIC 11298 POTASSIUM 3.9 mmol/L 12/18/2018 COMPREHENSIVE METABOLIC 42948 Total Protein 6.4 g/dL 12/18/2018 COMPREHENSIVE METABOLIC 68985 Glucose 83 mg/dL 12/18/2018 COMPREHENSIVE METABOLIC 68864 Bicarbonate 27 mmol/L 12/18/2018 COMPREHENSIVE METABOLIC 42961 AGAP 8 mmol/L 12/18/2018 ERYTHROCYTE SEDIMENTATION RATE 05864 Sed Rate 17 mm/hr 12/04/2018 MEAN GLUC 3297886 Calc M zach Gluc 108 mg/dL 12/03/2018 VITAMIN B 12 58410 VITAM IN B12 329 pg/mL 12/03/2018 COMPREHENSIVE METABOLIC 11588 AST 18 U/L 12/03/2018 COMPREHENSIVE METABOLIC 28848 ALT 21 U/L 12/03/2018 COMPREHENSIVE METABOLIC 21154 BUN 11 mg/dL 12/03/2018 COMPREHENSIVE METABOLIC 08201 ALBUMIN 4.5 g/dL 12/03/2018 COMPREHENSIVE METABOLIC 95320 CHLORIDE 106 mmol/L 12/03/2018 COMPREHENSIVE METABOLIC 36679 Bili Total 0.4 mg/dL 12/03/2018 COMPREHENSIVE METABOLIC 84927 ALK PHOS 49 U/L 12/03/2018 COMPREHENSIVE METABOLIC 50967 SODIUM 138 mmol/L 12/03/2018 COMPREHENSIVE METABOLIC 16142 CREATININE 0.61 mg/dL 12/03/2018 COMPREHENSIVE METABOLIC 58929 CALCIUM 9.2 mg/dL 12/03/2018 COMPREHENSIVE METABOLIC 32370 POTASSIUM 3.7 mmol/L 12/03/2018 COMPREHENSIVE METABOLIC 36080 Total Protein 6.8 g/dL 12/03/2018 COMPREHENSIVE METABOLIC 41066 Glucose 94 mg/dL 12/03/2018 COMPREHENSIVE METABOLIC 53858 Bicarbonate 25 mmol/L 12/03/2018 COMPREHENSIVE METABOLIC 81315 AGAP 7 mmol/L 12/03/2018 FREE T4 76621 T4 Free 0.96 ng/dL 12/03/2018 ASSAY TRIIODOTHYRONINE (T3) 57072 T3 Total 1.02 ng/mL 12/03/2018 GFR CALC 3183520 GFR Non Afr Amr >60 mL/min 12/03/2018 GFR CALC 6363593 GFR Afr Amr >60 mL/min 12/03/2018 GLYCOSYLATED HEMOGLOBIN TEST 99484 Hgb A1c 51403-1 5.4 % 12/03/2018 VITAMIN D TOTAL (25 HYDROXY) 29505 Vitamin D 25 [place] 11.1 ng/mL 12/03/2018 IRON 91172 Iron 106 ug/dL 12/03/2018 THYROID STIMULATING HORMONE 21497 TSH 0.978 uIU/mL 9 COMPLETE BLOOD COUNT 8391076 WBC 9.4 10e9/L 12/03/2018 COMPLETE BLOOD COUNT 8787221 RBC 4.41 10e12/L 9 COMPLETE BLOOD COUNT 1661428 HEMOGLOBIN 14.5 g/dL 12/03/2018 COMPLETE BLOOD COUNT 0965105 HEMATOCRIT 43.0 % 12/03/2018 COMPLETE BLOOD COUNT 5905767 MCV 97.5 fL 12/03/2018 COMPLETE BLOOD COUNT 5428777 MCH 32.9 pg 12/03/2018 COMPLETE BLOOD COUNT 0243229 MCHC 33.7 g/dL 12/03/2018 COMPLETE BLOOD COUNT 8570026 PLATELET COUNT 336 10e9/L 12/03/2018 COMPLETE BLOOD COUNT 3521167 Mean Plt Volume 9.1 fL 12/03/2018 COMPLETE BLOOD COUNT 3515017 Neut Auto 56.4 % 12/03/2018 COMPLETE BLOOD COUNT 2974330 Lymph Auto 35.6 % 12/03/2018 COMPLETE BLOOD COUNT 9178347 Loíza Auto 6.8 % 12/03/2018 COMPLETE BLOOD COUNT 1848027 RDW 12.6 % 12/03/2018 COMPLETE BLOOD COUNT 1396373 Eos Auto 1.0 % 12/03/2018 COMPLETE BLOOD COUNT 0354583 Baso Auto 0.2 % 12/03/2018 COMPLETE BLOOD COUNT 1019670 Neutrophil Abs 5.30 10e9/L 12/03/2018 COMPLETE BLOOD COUNT 8395129 Lymphocyte Abs 3.35 10e9/L 12/03/2018 COMPLETE BLOOD COUNT 9635311 Monocyte Abs 0.64 10e9/L 12/03/2018 COMPLETE BLOOD COUNT 8950460 Eosinophil Abs 0.09 10e9/L 12/03/2018 COMPLETE BLOOD COUNT 8066275 RDW-SD 44.3 fL 12/03/2018 COMPLETE BLOOD COUNT 0603332 Basophil Abs 0.02 10e9/L 12/03/2018 FERRITIN 13759 FERRITIN 87.8 ng/mL 12/03/2018 PT 8960857 PT 23.1 Seconds 11/30/2018 PT 7776244 INR 2.0 11/30/2018 ANTI STREPTOLYSIN O TITER(ASO) 30630 ASO Titr 117 IU/mL 9 COMPLETE BLOOD COUNT 8655328 WBC 10.7 10e9/L 11/11/2018 COMPLETE BLOOD COUNT 8313609 RBC 4.42 10e12/L 9 COMPLETE BLOOD COUNT 8393759 HEMOGLOBIN 14.5 g/dL 11/11/2018 COMPLETE BLOOD COUNT 7546344 HEMATOCRIT 43.1 % 11/11/2018 COMPLETE BLOOD COUNT 9344299 MCV 97.5 fL 11/11/2018 COMPLETE BLOOD COUNT 6699837 MCH 32.8 pg 11/11/2018 COMPLETE BLOOD COUNT 3165670 MCHC 33.6 g/dL 11/11/2018 COMPLETE BLOOD COUNT 1393386 PLATELET COUNT 324 10e9/L 11/11/2018 COMPLETE BLOOD COUNT 4248369 Mean Plt Volume 9.2 fL 11/11/2018 COMPLETE BLOOD COUNT 9877841 Neut Auto 62.3 % 11/11/2018 COMPLETE BLOOD COUNT 2000916 Lymph Auto 30.8 % 11/11/2018 COMPLETE BLOOD COUNT 5943736 [place] Auto 6.1 % 11/11/2018 COMPLETE BLOOD COUNT 9229563 RDW 12.7 % 11/11/2018 COMPLETE BLOOD COUNT 1207276 Eos Auto 0.7 % 11/11/2018 COMPLETE BLOOD COUNT 4706986 Baso Auto 0.1 % 11/11/2018 COMPLETE BLOOD COUNT 2258946 Neutrophil Abs 6.67 10e9/L 11/11/2018 COMPLETE BLOOD COUNT 4199088 Lymphocyte Abs 3.30 10e9/L 11/11/2018 COMPLETE BLOOD COUNT 1591802 Monocyte Abs 0.65 10e9/L 11/11/2018 COMPLETE BLOOD COUNT 9094054 Eosinophil Abs 0.07 10e9/L 11/11/2018 COMPLETE BLOOD COUNT 2408355 RDW-SD 44.3 fL 11/11/2018 COMPLETE BLOOD COUNT 1832322 Basophil Abs 0.01 10e9/L 11/11/2018 PT 5680447 PT 23.4 Seconds 10/27/2018 PT 3593757 INR 2.0 10/27/2018 COMPLETE BLOOD COUNT 8793196 WBC 8.1 10e9/L 09/25/2018 COMPLETE BLOOD COUNT 6465448 RBC 4.37 10e12/L 9 COMPLETE BLOOD COUNT 6390775 HEMOGLOBIN 14.5 g/dL 09/25/2018 COMPLETE BLOOD COUNT 3502481 HEMATOCRIT 42.1 % 09/25/2018 COMPLETE BLOOD COUNT 9476746 MCV 96.3 fL 09/25/2018 COMPLETE BLOOD COUNT 0233255 MCH 33.2 pg 09/25/2018 COMPLETE BLOOD COUNT 5975563 MCHC 34.4 g/dL 09/25/2018 COMPLETE BLOOD COUNT 0173975 PLATELET COUNT 313 10e9/L 09/25/2018 COMPLETE BLOOD COUNT 0301066 Mean Plt Volume 9.2 fL 09/25/2018 COMPLETE BLOOD COUNT 2972180 Neut Auto 57.4 % 09/25/2018 COMPLETE BLOOD COUNT 7618161 Lymph Auto 35.0 % 09/25/2018 COMPLETE BLOOD COUNT 4739207 [place] Auto 6.3 % 09/25/2018 COMPLETE BLOOD COUNT 9360667 RDW 12.6 % 09/25/2018 COMPLETE BLOOD COUNT 9280079 Eos Auto 1.1 % 09/25/2018 COMPLETE BLOOD COUNT 9839765 Baso Auto 0.2 % 09/25/2018 COMPLETE BLOOD COUNT [id number] Neutrophil Abs 4.65 10e9/L 09/25/2018 COMPLETE BLOOD COUNT [id number] Lymphocyte Abs 2.84 10e9/L 09/25/2018 COMPLETE BLOOD COUNT [id number] Monocyte Abs 0.51 10e9/L 09/25/2018 COMPLETE BLOOD COUNT [id number] Eosinophil Abs 0.09 10e9/L 09/25/2018 COMPLETE BLOOD COUNT [id number] RDW-SD 43.0 fL 09/25/2018 COMPLETE BLOOD COUNT [id number] Basophil Abs 0.02 10e9/L 09/25/2018 COMPREHENSIVE METABOLIC 25112 AST 15 U/L 09/25/2018 COMPREHENSIVE METABOLIC 24162 ALT 20 U/L 09/25/2018 COMPREHENSIVE METABOLIC 38946 BUN 9 mg/dL 09/25/2018 COMPREHENSIVE METABOLIC 69027 ALBUMIN 4.3 g/dL 09/25/2018 COMPREHENSIVE METABOLIC 32445 CHLORIDE 107 mmol/L 09/25/2018 COMPREHENSIVE METABOLIC 98875 Bili Total 0.4 mg/dL 09/25/2018 COMPREHENSIVE METABOLIC 50445 ALK PHOS 51 U/L 09/25/2018 COMPREHENSIVE METABOLIC 38455 SODIUM 139 mmol/L 09/25/2018 COMPREHENSIVE METABOLIC 38469 CREATININE 0.61 mg/dL 09/25/2018 COMPREHENSIVE METABOLIC 40181 CALCIUM 9.1 mg/dL 09/25/2018 COMPREHENSIVE METABOLIC 83852 POTASSIUM 3.7 mmol/L 09/25/2018 COMPREHENSIVE METABOLIC 14944 Total Protein 6.3 g/dL 09/25/2018 COMPREHENSIVE METABOLIC 62095 Glucose 92 mg/dL 09/25/2018 COMPREHENSIVE METABOLIC 36289 Bicarbonate 24 mmol/L 09/25/2018 COMPREHENSIVE METABOLIC 92285 AGAP 8 mmol/L 09/25/2018 PT 1436745 PT 25.0 Seconds 09/25/2018 PT 8748138 INR 2.2 09/25/2018 GFR CALC 0301958 GFR Non Afr Amr >60 mL/min 09/25/2018 GFR CALC 7392418 GFR Afr Amr >60 mL/min 09/25/2018 PT 0477953 PT 25.7 Seconds 05/12/2018 PT 5057759 INR 2.3 05/12/2018 PT 6182954 PT TNP:Improper Specimen 04/30/2018 PT 0438987 INR TNP:Improper Specimen 04/30/2018 PT 2283648 PT 26.3 Seconds 02/05/2018 PT 8371938 INR 2.4 02/05/2018 ANTI STREPTOLYSIN O TITER(ASO) 94826 ASO Titr 118 IU/mL 8 VITAMIN B 12 44920 VITAM IN B12 302 pg/mL 12/02/2017 VITAMIN D TOTAL (25 HYDROXY) 20907 Vitamin D 25 OH 27.0 ng/mL 12/02/2017 PT 0338998 PT 17.3 Seconds 12/01/2017 PT 2769465 INR 1.4 12/01/2017 ANTI STREPTOLYSIN O TITER(ASO) 75924 ASO Titr 127 IU/mL 8 ANTI STREPTOLYSIN O TITER(ASO) 88150 ASO Titr 130 IU/mL 8 ANTINUCLEAR ANTIBODY SCREEN 75158 MAGALIE Ab Scr <1:80 10/02/2017 RA FACTOR 60732 RA FACTOR <20 IU/mL 10/02/2017 RA FACTOR 22598 RA Facto r Intp Negative 10/02/2017 VITAMIN D TOTAL (25 HYDROXY) 88163 Vitamin D 25 OH 18 ng/mL 8 IRON 78601 Iron 70 ug/dL 10/01/2017 VITAMIN B 12 21037 VITAM IN B12 377 pg/mL 10/01/2017 FREE T4 54187 T4 Free 1.31 ng/dL 10/01/2017 URIC ACID 68234 URIC ACID 3.9 mg/dL 10/01/2017 FERRITIN 31711 FERRITIN 68.0 ng/mL 10/01/2017 THYROID STIMULATING HORMONE 47107 TSH 1.401 uIU/mL 8 GLYCOSYLATED HEMOGLOBIN TEST 57662 Hgb A1c 16442-1 5.4 % 10/01/2017 FOLIC ACID 81334 Folate >24.0 ng/mL 10/01/2017 ASSAY TRIIODOTHYRONINE (T3) 94748 T3 Total 1.0 ng/mL 10/01/2017 ERYTHROCYTE SEDIMENTATION RATE 12885 Sed Rate 5 mm/hr 10/01/2017 MEAN GLUC 5293442 Calc M zach Gluc 108 mg/dL 10/01/2017 PT 0076743 PT 18.6 Seconds 08/07/2017 PT 8261141 INR 1.5 08/07/2017 COMPREHENSIVE METABOLIC 73948 AST 21 U/L 08/07/2017 COMPREHENSIVE METABOLIC 78807 ALT 37 U/L 08/07/2017 COMPREHENSIVE METABOLIC 29008 BUN 14 mg/dL 08/07/2017 COMPREHENSIVE METABOLIC 84497 ALBUMIN 4.5 g/dL 08/07/2017 COMPREHENSIVE METABOLIC 11437 CHLORIDE 104 mmol/L 08/07/2017 COMPREHENSIVE METABOLIC 06142 Bili Total 0.3 mg/dL 08/07/2017 COMPREHENSIVE METABOLIC 60384 ALK PHOS 55 U/L 08/07/2017 COMPREHENSIVE METABOLIC 80975 SODIUM 139 mmol/L 08/07/2017 COMPREHENSIVE METABOLIC 14199 CREATININE 0.77 mg/dL 08/07/2017 COMPREHENSIVE METABOLIC 48023 CALCIUM 9.2 mg/dL 08/07/2017 COMPREHENSIVE METABOLIC 93830 POTASSIUM 3.7 mmol/L 08/07/2017 COMPREHENSIVE METABOLIC 90492 Total Protein 6.5 g/dL 08/07/2017 COMPREHENSIVE METABOLIC 43514 Glucose 101 mg/dL 08/07/2017 COMPREHENSIVE METABOLIC 07767 Bicarbonate 25 mmol/L 08/07/2017 COMPREHENSIVE METABOLIC 00962 AGAP 10 mmol/L 08/07/2017 COMPLETE BLOOD COUNT 5724013 WBC 9.4 10e9/L 08/07/2017 COMPLETE BLOOD COUNT 0046166 RBC 4.38 10e12/L 8 COMPLETE BLOOD COUNT 3276727 HEMOGLOBIN 14.5 g/dL 08/07/2017 COMPLETE BLOOD COUNT 2940065 HEMATOCRIT 42.7 % 08/07/2017 COMPLETE BLOOD COUNT 5276721 MCV 97.5 fL 08/07/2017 COMPLETE BLOOD COUNT 7978795 MCH 33.1 pg 08/07/2017 COMPLETE BLOOD COUNT 2525377 MCHC 34.0 g/dL 08/07/2017 COMPLETE BLOOD COUNT 2019737 PLATELET COUNT 313 10e9/L 08/07/2017 COMPLETE BLOOD COUNT 6785873 Mean Plt Volume 8.6 fL 08/07/2017 COMPLETE BLOOD COUNT 4925588 Neut Auto 51.6 % 08/07/2017 COMPLETE BLOOD COUNT 9408895 Lymph Auto 40.0 % 08/07/2017 COMPLETE BLOOD COUNT 2635328 [place] Auto 6.8 % 08/07/2017 COMPLETE BLOOD COUNT 7251177 Eos Auto 1.4 % 08/07/2017 COMPLETE BLOOD COUNT 6506129 RDW 12.9 % 08/07/2017 COMPLETE BLOOD COUNT 0482406 Baso Auto 0.2 % 08/07/2017 COMPLETE BLOOD COUNT 8787046 Neutrophil Abs 4.85 10e9/L 08/07/2017 COMPLETE BLOOD COUNT 9442750 Lymphocyte Abs 3.76 10e9/L 08/07/2017 COMPLETE BLOOD COUNT 1778319 Monocyte Abs 0.64 10e9/L 08/07/2017 COMPLETE BLOOD COUNT 6690195 Eosinophil Abs 0.13 10e9/L 08/07/2017 COMPLETE BLOOD COUNT 7169114 RDW-SD 45.1 fL 08/07/2017 COMPLETE BLOOD COUNT 0041651 Basophil Abs 0.02 10e9/L 08/07/2017 GFR CALC 0574914 GFR Non Afr Amr >60 mL/min 08/07/2017 GFR CALC 8776192 GFR Afr Amr >60 mL/min 08/07/2017 COMPLETE BLOOD COUNT 5278991 WBC 9.2 10e9/L 07/15/2017 COMPLETE BLOOD COUNT 2406167 RBC 4.70 10e12/L 8 COMPLETE BLOOD COUNT 2618934 HEMOGLOBIN 15.4 g/dL 07/15/2017 COMPLETE BLOOD COUNT 9475484 HEMATOCRIT 46.2 % 07/15/2017 COMPLETE BLOOD COUNT 3325946 MCV 98.3 fL 07/15/2017 COMPLETE BLOOD COUNT 5191303 MCH 32.8 pg 07/15/2017 COMPLETE BLOOD COUNT 9908376 MCHC 33.3 g/dL 07/15/2017 COMPLETE BLOOD COUNT 9704008 PLATELET COUNT 348 10e9/L 07/15/2017 COMPLETE BLOOD COUNT 3583254 Mean Plt Volume 8.9 fL 07/15/2017 COMPLETE BLOOD COUNT 8968491 Neut Auto 60.6 % 07/15/2017 COMPLETE BLOOD COUNT 2678087 Lymph Auto 30.9 % 07/15/2017 COMPLETE BLOOD COUNT 8841217 [place] Auto 7.1 % 07/15/2017 COMPLETE BLOOD COUNT 0544034 Eos Auto 1.2 % 07/15/2017 COMPLETE BLOOD COUNT 0573856 RDW 13.1 % 07/15/2017 COMPLETE BLOOD COUNT 3293462 Baso Auto 0.2 % 07/15/2017 COMPLETE BLOOD COUNT 4828366 Neutrophil Abs 5.58 10e9/L 07/15/2017 COMPLETE BLOOD COUNT 3048389 Lymphocyte Abs 2.84 10e9/L 07/15/2017 COMPLETE BLOOD COUNT 5282670 Monocyte Abs 0.65 10e9/L 07/15/2017 COMPLETE BLOOD COUNT 3798408 Eosinophil Abs 0.11 10e9/L 07/15/2017 COMPLETE BLOOD COUNT 6978887 RDW-SD 46.1 fL 07/15/2017 COMPLETE BLOOD COUNT 9269352 Basophil Abs 0.02 10e9/L 07/15/2017 GFR CALC 1114618 GFR Non Afr Amr >60 mL/min 07/15/2017 GFR CALC 8624649 GFR Afr Amr >60 mL/min 07/15/2017 COMPREHENSIVE METABOLIC 42185 AST 16 U/L 07/15/2017 COMPREHENSIVE METABOLIC 48473 ALT 20 U/L 07/15/2017 COMPREHENSIVE METABOLIC 01597 BUN 13 mg/dL 07/15/2017 COMPREHENSIVE METABOLIC 86396 ALBUMIN 4.6 g/dL 07/15/2017 COMPREHENSIVE METABOLIC 44667 CHLORIDE 106 mmol/L 07/15/2017 COMPREHENSIVE METABOLIC 16640 Bili Total 0.3 mg/dL 07/15/2017 COMPREHENSIVE METABOLIC 75862 ALK PHOS 50 U/L 07/15/2017 COMPREHENSIVE METABOLIC 56040 SODIUM 137 mmol/L 07/15/2017 COMPREHENSIVE METABOLIC 47868 CREATININE 0.62 mg/dL 07/15/2017 COMPREHENSIVE METABOLIC 67136 CALCIUM 9.2 mg/dL 07/15/2017 COMPREHENSIVE METABOLIC 35274 POTASSIUM 3.8 mmol/L 07/15/2017 COMPREHENSIVE METABOLIC 25037 Total Protein 6.7 g/dL 07/15/2017 COMPREHENSIVE METABOLIC 27651 Glucose 83 mg/dL 07/15/2017 COMPREHENSIVE METABOLIC 96635 Bicarbonate 30 mmol/L 07/15/2017 COMPREHENSIVE METABOLIC 00280 AGAP 1 mmol/L 07/15/2017 THYROID STIMULATING HORMONE 50210 TSH 2.111 uIU/mL 7 COMPREHENSIVE METABOLIC 85452 AST 33 U/L 08/27/2016 COMPREHENSIVE METABOLIC 01265 ALT 55 U/L 08/27/2016 COMPREHENSIVE METABOLIC 52146 BUN 11 mg/dL 08/27/2016 COMPREHENSIVE METABOLIC 28150 ALBUMIN 4.6 g/dL 08/27/2016 COMPREHENSIVE METABOLIC 68335 CHLORIDE 103 mmol/L 08/27/2016 COMPREHENSIVE METABOLIC 33399 Bili Total 0.3 mg/dL 08/27/2016 COMPREHENSIVE METABOLIC 16041 ALK PHOS 60 U/L 08/27/2016 COMPREHENSIVE METABOLIC 32991 SODIUM 140 mmol/L 08/27/2016 COMPREHENSIVE METABOLIC 82839 CREATININE 0.69 mg/dL 08/27/2016 COMPREHENSIVE METABOLIC 89521 CALCIUM 9.3 mg/dL 08/27/2016 COMPREHENSIVE METABOLIC 55178 POTASSIUM 3.7 mmol/L 08/27/2016 COMPREHENSIVE METABOLIC 84112 Total Protein 6.8 g/dL 08/27/2016 COMPREHENSIVE METABOLIC 54710 Glucose 79 mg/dL 08/27/2016 COMPREHENSIVE METABOLIC 51740 Bicarbonate 25 mmol/L 08/27/2016 COMPREHENSIVE METABOLIC 32054 AGAP 12 mmol/L 08/27/2016 COMPLETE BLOOD COUNT 0704625 WBC 9.4 10e9/L 08/27/2016 COMPLETE BLOOD COUNT 9713598 RBC 4.35 10e12/L 7 COMPLETE BLOOD COUNT 2271663 HEMOGLOBIN 14.2 g/dL 08/27/2016 COMPLETE BLOOD COUNT 2062214 HEMATOCRIT 41.5 % 08/27/2016 COMPLETE BLOOD COUNT 5965151 MCV 95.4 fL 08/27/2016 COMPLETE BLOOD COUNT 3863381 MCH 32.6 pg 08/27/2016 COMPLETE BLOOD COUNT 3268884 MCHC 34.2 g/dL 08/27/2016 COMPLETE BLOOD COUNT 1314456 PLATELET COUNT 289 10e9/L 08/27/2016 COMPLETE BLOOD COUNT 1020068 Mean Plt Volume 9.8 fL 08/27/2016 COMPLETE BLOOD COUNT 3695536 Neut Auto 47.7 % 08/27/2016 COMPLETE BLOOD COUNT 6863947 Lymph Auto 44.2 % 08/27/2016 COMPLETE BLOOD COUNT 9067716 [place] Auto 6.6 % 08/27/2016 COMPLETE BLOOD COUNT 8700268 Eos Auto 1.4 % 08/27/2016 COMPLETE BLOOD COUNT 9473652 RDW 12.9 % 08/27/2016 COMPLETE BLOOD COUNT 0332990 Baso Auto 0.1 % 08/27/2016 COMPLETE BLOOD COUNT 0726230 Neutrophil Abs 4.48 10e9/L 08/27/2016 COMPLETE BLOOD COUNT 0604320 Lymphocyte Abs 4.15 10e9/L 08/27/2016 COMPLETE BLOOD COUNT 0793953 Monocyte Abs 0.62 10e9/L 08/27/2016 COMPLETE BLOOD COUNT 5875965 Eosinophil Abs 0.13 10e9/L 08/27/2016 COMPLETE BLOOD COUNT 4353218 Basophil Abs 0.01 10e9/L 08/27/2016 COMPLETE BLOOD COUNT 2351411 RDW-SD 43.9 fL 08/27/2016 PT 6294119 PT 15.0 Seconds 08/27/2016 PT 4672889 INR 1.2 08/27/2016 GFR CALC 5962551 GFR Non Afr Amr >60 mL/min 08/27/2016 GFR CALC 2259577 GFR Afr Amr >60 mL/min 08/27/2016 GFR CALC 2727674 GFR Afr Amr >60 mL/min 05/24/2016 GFR CALC 2740930 GFR Non Afr Amr >60 mL/min 05/24/2016 COMPREHENSIVE METABOLIC 45194 AST 19 U/L 05/24/2016 COMPREHENSIVE METABOLIC 35058 ALT 23 U/L 05/24/2016 COMPREHENSIVE METABOLIC 15211 BUN 12 mg/dL 05/24/2016 COMPREHENSIVE METABOLIC 20060 ALBUMIN 4.1 g/dL 05/24/2016 COMPREHENSIVE METABOLIC 96916 CHLORIDE 105 mmol/L 05/24/2016 COMPREHENSIVE METABOLIC 10481 Bili Total 0.4 mg/dL 05/24/2016 COMPREHENSIVE METABOLIC 41482 ALK PHOS 52 U/L 05/24/2016 COMPREHENSIVE METABOLIC 19975 SODIUM 136 mmol/L 05/24/2016 COMPREHENSIVE METABOLIC 17992 CREATININE 0.61 mg/dL 05/24/2016 COMPREHENSIVE METABOLIC 67228 CALCIUM 8.8 mg/dL 05/24/2016 COMPREHENSIVE METABOLIC 76989 POTASSIUM 3.8 mmol/L 05/24/2016 COMPREHENSIVE METABOLIC 54270 Total Protein 6.2 g/dL 05/24/2016 COMPREHENSIVE METABOLIC 47304 Glucose 95 mg/dL 05/24/2016 COMPREHENSIVE METABOLIC 26609 Bicarbonate 19 mmol/L 05/24/2016 COMPREHENSIVE METABOLIC 89677 AGAP 12 mmol/L 05/24/2016 PT 7653394 PT 25.7 Seconds 05/24/2016 PT 8958555 INR 2.4 05/24/2016 PT 8850148 PT 22.2 Seconds 04/11/2016 PT 1784616 INR 2.0 04/11/2016 PT 2355726 PT 16.5 Seconds 03/13/2016 PT 2970561 INR 1.4 03/13/2016 THYROID STIMULATING HORMONE 17899 TSH 1.151 uIU/mL 6 COMPLETE BLOOD COUNT 9214857 WBC 10.0 10e9/L 03/12/2016 COMPLETE BLOOD COUNT 8130228 RBC 4.08 10e12/L 6 COMPLETE BLOOD COUNT 2192242 HEMOGLOBIN 13.5 g/dL 03/12/2016 COMPLETE BLOOD COUNT 8347178 HEMATOCRIT 38.8 % 03/12/2016 COMPLETE BLOOD COUNT 2072910 MCV 95.1 fL 03/12/2016 COMPLETE BLOOD COUNT 1700532 MCH 33.1 pg 03/12/2016 COMPLETE BLOOD COUNT 2438710 MCHC 34.8 g/dL 03/12/2016 COMPLETE BLOOD COUNT 6407952 PLATELET COUNT 282 10e9/L 03/12/2016 COMPLETE BLOOD COUNT 9426282 Mean Plt Volume 9.6 fL 03/12/2016 COMPLETE BLOOD COUNT 8848416 Neut Auto 53.5 % 03/12/2016 COMPLETE BLOOD COUNT 8316854 Lymph Auto 39.0 % 03/12/2016 COMPLETE BLOOD COUNT 3775458 [place] Auto 5.9 % 03/12/2016 COMPLETE BLOOD COUNT 5465817 RDW 12.6 % 03/12/2016 COMPLETE BLOOD COUNT 2975855 Eos Auto 1.4 % 03/12/2016 COMPLETE BLOOD COUNT 8623757 Baso Auto 0.2 % 03/12/2016 COMPLETE BLOOD COUNT 1237905 Neutrophil Abs 5.35 10e9/L 03/12/2016 COMPLETE BLOOD COUNT 3298312 Lymphocyte Abs 3.90 10e9/L 03/12/2016 COMPLETE BLOOD COUNT 7094661 Monocyte Abs 0.59 10e9/L 03/12/2016 COMPLETE BLOOD COUNT 9079627 Eosinophil Abs 0.14 10e9/L 03/12/2016 COMPLETE BLOOD COUNT 5471575 RDW-SD 42.7 fL 03/12/2016 COMPLETE BLOOD COUNT 4423260 Basophil Abs 0.02 10e9/L 03/12/2016 COMPREHENSIVE METABOLIC 33793 AST 13 U/L 03/12/2016 COMPREHENSIVE METABOLIC 91950 ALT 11 U/L 03/12/2016 COMPREHENSIVE METABOLIC 72154 BUN 11 mg/dL 03/12/2016 COMPREHENSIVE METABOLIC 87604 ALBUMIN 4.1 g/dL 03/12/2016 COMPREHENSIVE METABOLIC 80137 CHLORIDE 107 mmol/L 03/12/2016 COMPREHENSIVE METABOLIC 18221 Bili Total 0.3 mg/dL 03/12/2016 COMPREHENSIVE METABOLIC 27244 ALK PHOS 41 U/L 03/12/2016 COMPREHENSIVE METABOLIC 67521 SODIUM 137 mmol/L 03/12/2016 COMPREHENSIVE METABOLIC 24272 CREATININE 0.62 mg/dL 03/12/2016 COMPREHENSIVE METABOLIC 03084 CALCIUM 9.0 mg/dL 03/12/2016 COMPREHENSIVE METABOLIC 36131 POTASSIUM 3.8 mmol/L 03/12/2016 COMPREHENSIVE METABOLIC 66736 Total Protein 6.1 g/dL 03/12/2016 COMPREHENSIVE METABOLIC 06063 Glucose 95 mg/dL 03/12/2016 COMPREHENSIVE METABOLIC 60299 Bicarbonate 23 mmol/L 03/12/2016 COMPREHENSIVE METABOLIC 47965 AGAP 7 mmol/L 03/12/2016 GFR CALC 2220844 GFR Non Afr Amr >60 mL/min 03/12/2016 GFR CALC 0685194 GFR Afr Amr >60 mL/min 03/12/2016 PT 7916010 PT 14.4 Seconds 02/12/2016 PT 3394516 INR 1.2 02/12/2016 PT 3150198 PT 26.1 Seconds 02/01/2016 PT 2486052 INR 2.4 02/01/2016 EB VIRUS VCA G/M + EB[place] + [place] [address]|8 6665 x 2|17672 EBV VCA Ab IgG 3.70 11/13/2015 [place] VCA G/[place] + [place] + [place] [address]|8 6665 x 2|78507 EBV VCA Ab IgM 0.47 11/13/2015 EB VIRUS VCA G/M + EB[place] + [place] [address]|8 6665 x 2|97807 EBV Nuclear Ab 2.24 11/13/2015 EB VIRUS VCA G/M + EB[place] + [place] [address]|8 6665 x 2|33248 EBV Early Ab 1.37 11/13/2015 PT 2247201 PT 18.9 Seconds 11/10/2015 PT 4562854 INR 1.6 11/10/2015 PT 9650717 PT 16.8 Seconds 09/29/2015 PT 5501440 INR 1.4 09/29/2015 COMPLETE BLOOD COUNT 4445450 WBC 9.6 10e9/L 09/29/2015 COMPLETE BLOOD COUNT 3589894 RBC 4.51 10e12/L 6 COMPLETE BLOOD COUNT 3085962 HEMOGLOBIN 14.8 g/dL 09/29/2015 COMPLETE BLOOD COUNT 8175528 HEMATOCRIT 43.3 % 09/29/2015 COMPLETE BLOOD COUNT 4225530 MCV 96.0 fL 09/29/2015 COMPLETE BLOOD COUNT 8132642 MCH 32.8 pg 09/29/2015 COMPLETE BLOOD COUNT 8653928 MCHC 34.2 g/dL 09/29/2015 COMPLETE BLOOD COUNT 2399056 PLATELET COUNT 310 10e9/L 09/29/2015 COMPLETE BLOOD COUNT 8553423 Mean Plt Volume 9.7 fL 09/29/2015 COMPLETE BLOOD COUNT 7175066 Neutrophil 60.3 % 09/29/2015 COMPLETE BLOOD COUNT 0373625 Lymph Auto % 32.4 % 09/29/2015 COMPLETE BLOOD COUNT 6623667 Monocyte Auto % 6.5 % 09/29/2015 COMPLETE BLOOD COUNT 1292830 Eosinophil 0.7 % 09/29/2015 COMPLETE BLOOD COUNT 2131090 RDW 12.8 % 09/29/2015 COMPLETE BLOOD COUNT 4159719 Basophil 0.1 % 09/29/2015 COMPLETE BLOOD COUNT 5701235 Neutrophil Abs 5.79 10e9/L 09/29/2015 COMPLETE BLOOD COUNT 8697983 Lymphoctye Abs 3.11 10e9/L 09/29/2015 COMPLETE BLOOD COUNT 4605668 Monocyte Abs 0.62 10e9/L 09/29/2015 COMPLETE BLOOD COUNT 9507776 Eosinophil Abs 0.07 10e9/L 09/29/2015 COMPLETE BLOOD COUNT 1223371 RDW-SD 43.6 fL 09/29/2015 COMPLETE BLOOD COUNT 0335541 Basophil Abs 0.01 10e9/L 09/29/2015 IRON 30425 Iron 86 ug/dL 09/29/2015 COMPLETE BLOOD COUNT 3116148 WBC 9.6 10e9/L 09/29/2015 COMPLETE BLOOD COUNT 1067718 RBC 4.51 10e12/L 6 COMPLETE BLOOD COUNT 4808430 HEMOGLOBIN 14.8 g/dL 09/29/2015 COMPLETE BLOOD COUNT 5215570 HEMATOCRIT 43.3 % 09/29/2015 COMPLETE BLOOD COUNT 6188736 MCV 96.0 fL 09/29/2015 COMPLETE BLOOD COUNT 3896173 MCH 32.8 pg 09/29/2015 COMPLETE BLOOD COUNT 3630999 MCHC 34.2 g/dL 09/29/2015 COMPLETE BLOOD COUNT 3935351 PLATELET COUNT 310 10e9/L 09/29/2015 COMPLETE BLOOD COUNT 1141847 Mean Plt Volume 9.7 fL 09/29/2015 COMPLETE BLOOD COUNT 2818519 Neutrophil 60.3 % 09/29/2015 COMPLETE BLOOD COUNT 3743980 Lymph Auto % 32.4 % 09/29/2015 COMPLETE BLOOD COUNT 6997696 Monocyte Auto % 6.5 % 09/29/2015 COMPLETE BLOOD COUNT 7038926 RDW 12.8 % 09/29/2015 COMPLETE BLOOD COUNT 5008516 Eosinophil 0.7 % 09/29/2015 COMPLETE BLOOD COUNT 1432492 Basophil 0.1 % 09/29/2015 COMPLETE BLOOD COUNT 9745641 Neutrophil Abs 5.79 10e9/L 09/29/2015 COMPLETE BLOOD COUNT 8123709 Lymphoctye Abs 3.11 10e9/L 09/29/2015 COMPLETE BLOOD COUNT 4009289 Monocyte Abs 0.62 10e9/L 09/29/2015 COMPLETE BLOOD COUNT 8032730 Eosinophil Abs 0.07 10e9/L 09/29/2015 COMPLETE BLOOD COUNT 6412765 Basophil Abs 0.01 10e9/L 09/29/2015 COMPLETE BLOOD COUNT 7354138 RDW-SD 43.6 fL 09/29/2015 PT 2107190 PT 16.8 Seconds 09/29/2015 PT 9233594 INR 1.4 09/29/2015 IRON 77616 Iron 86 ug/dL 09/29/2015 PT MT IVANNA 54576 PRO T PAULIE 19.4 SEC 07/27/2015 PT MT IVANNA 44005 INR M CMC 1.7 07/27/2015 PT HI IVANNA 64720 PRO T PAULIE 21.4 SEC 06/21/2015 PT HI IVANNA 18131 INR M CMC 1.9 06/21/2015 PT HI IVANNA 42723 PRO T PAULIE 24.5 SEC 05/24/2015 PT HI IVANNA 19054 INR M CMC 2.3 05/24/2015 Review of [...] discharge 01/26/2018 Neurologic dizziness 10/2017 Neurologic headache 10/2017 Ears/Nose/Throat/Neck otalgia 12/25/2017 Constitutional fatigue 0 [...] Procedures Procedure Codes Date ROUTINE VENIPUNCTURE CPT-4: 73104 02/17/2019 PT CPT-4: 4144278 02/17/2019 URINE CULTURE/ COLON Y COUNT CPT-4: 91406 02/08/2019 ROUTINE VENIPUNCTURE CPT-4: 62807 01/19/2019 PROTHROMBIN TIME CPT-4: 64952 01/19/2019 COMPLETE CBC W/AUTO DIFF WBC CPT-4: 46559 01/19/2019 ANTISTREPTOLYSIN O T ITER CPT-4: 61461 01/19/2019 HEPATIC FUNCTION PANEL CPT-4: 08136 01/19/2019 MYCOPLASMA ANTIBODY, IFA CPT-4: 53818V3 01/19/2019 RESPIRATORY CULTURE & STAIN CPT-4: 00331 01/19/2019 STREP A ASSAY W/OPTIC CPT-4: 23494 01/19/2019 THER/PROPH/DIAG INJ SC/IM CPT-4: 81222 01/04/2019 TRIAMCINOLONE ACET I [place] NOS CPT-4: J3301 01/04/2019 ROUTINE VENIPUNCTURE CPT-4: 42487 12/18/2018 COMPLETE CBC W/AUTO DIFF WBC CPT-4: 14283 12/18/2018 COMPREHEN METABOLIC PANEL CPT-4: 96733 12/18/2018 HYDRATION IV INFUSIO N INIT CPT-4: 59541 12/16/2018 STREP A ASSAY W/OPTIC CPT-4: 10899 12/02/2018 ROUTINE VENIPUNCTURE CPT-4: 51875 11/30/2018 PT CPT-4: 1244761 11/30/2018 CEFTRIAXONE SODIUM I NJECTION CPT-4: J0696 11/30/2018 THER/PROPH/DIAG INJ SC/IM CPT-4: 20770 11/30/2018 URINE CULTURE/ COLON Y COUNT CPT-4: 08952 11/20/2018 URINALYSIS NONAUTO W /O SCOPE CPT-4: 55892 11/20/2018 CEFTRIAXONE SODIUM I NJECTION CPT-4: J0696 11/12/2018 THER/PROPH/DIAG INJ SC/IM CPT-4: 86008 11/12/2018 STREP A ASSAY W/OPTIC CPT-4: 26068 11/11/2018 CEFTRIAXONE SODIUM I NJECTION CPT-4: J0696 11/11/2018 THER/PROPH/DIAG INJ SC/IM CPT-4: 51449 11/11/2018 ROUTINE VENIPUNCTURE CPT-4: 51968 11/11/2018 ANTISTREPTOLYSIN O T ITER CPT-4: 63753 11/11/2018 COMPLETE CBC W/AUTO DIFF WBC CPT-4: 86863 11/11/2018 ROUTINE VENIPUNCTURE CPT-4: 08030 10/27/2018 PT CPT-4: 3920419 10/27/2018 THER/PROPH/DIAG INJ SC/IM CPT-4: 53188 10/09/2018 TRIAMCINOLONE ACET I [place] NOS CPT-4: J3301 10/09/2018 CEFTRIAXONE SODIUM I NJECTION CPT-4: J0696 10/08/2018 THER/PROPH/DIAG INJ SC/IM CPT-4: 65609 10/08/2018 CEFTRIAXONE SODIUM I NJECTION CPT-4: J0696 10/07/2018 THER/PROPH/DIAG INJ SC/IM CPT-4: 23775 10/07/2018 ROUTINE VENIPUNCTURE CPT-4: 12952 09/25/2018 COMPREHEN METABOLIC PANEL CPT-4: 41850 09/25/2018 COMPLETE CBC W/AUTO DIFF WBC CPT-4: 84172 09/25/2018 PT CPT-4: 2325518 09/25/2018 URINE CULTURE/ COLON Y COUNT CPT-4: 32824 09/10/2018 URINALYSIS NONAUTO W /O SCOPE CPT-4: 62421 09/10/2018 CEFTRIAXONE SODIUM I NJECTION CPT-4: J0696 09/08/2018 THER/PROPH/DIAG INJ SC/IM CPT-4: 50336 09/08/2018 ROUTINE VENIPUNCTURE CPT-4: 52527 08/14/2018 PT CPT-4: 0281935 08/14/2018 CEFTRIAXONE SODIUM I NJECTION CPT-4: J0696 07/02/2018 THER/PROPH/DIAG INJ SC/IM CPT-4: 10456 07/02/2018 THER/PROPH/DIAG INJ SC/IM CPT-4: 12623 07/02/2018 TRIAMCINOLONE ACET I [place] NOS CPT-4: J3301 07/02/2018 ROUTINE VENIPUNCTURE CPT-4: 10404 06/22/2018 ANTISTREPTOLYSIN O T ITER CPT-4: 09996 06/22/2018 ROUTINE VENIPUNCTURE CPT-4: 50015 06/17/2018 PROTHROMBIN TIME CPT-4: 41263 06/17/2018 URINE CULTURE/ COLON Y COUNT CPT-4: 67132 06/17/2018 CEFTRIAXONE SODIUM I NJECTION CPT-4: J0696 05/12/2018 THER/PROPH/DIAG INJ SC/IM CPT-4: 51880 05/12/2018 PROTHROMBIN TIME CPT-4: 69857 05/11/2018 CEFTRIAXONE SODIUM I NJECTION CPT-4: J0696 05/11/2018 THER/PROPH/DIAG INJ SC/IM CPT-4: 76839 05/11/2018 ROUTINE VENIPUNCTURE CPT-4: 00787 04/30/2018 PROTHROMBIN TIME CPT-4: 10865 04/30/2018 THER/PROPH/DIAG INJ SC/IM CPT-4: 76565 04/02/2018 TRIAMCINOLONE ACET I [place] NOS CPT-4: J3301 04/02/2018 IIV4 VACCINE 3 YRS+ IM AND UP CPT-4: 60918 03/24/2018 IMMUNIZATION ADMIN CPT- 4: 32148 03/24/2018 ROUTINE VENIPUNCTURE CPT-4: 49735 03/24/2018 PT CPT-4: 9052791 03/24/2018 PROTHROMBIN TIME CPT-4: 79541 02/24/2018 ROUTINE VENIPUNCTURE CPT-4: 55310 02/24/2018 ROUTINE VENIPUNCTURE CPT-4: 87039 02/05/2018 PROTHROMBIN TIME CPT-4: 05741 02/05/2018 URINE CULTURE/ COLON Y COUNT CPT-4: 20452 02/05/2018 CEFTRIAXONE SODIUM I NJECTION CPT-4: J0696 01/29/2018 THER/PROPH/DIAG INJ SC/IM CPT-4: 17763 01/29/2018 CEFTRIAXONE SODIUM I NJECTION CPT-4: J0696 01/28/2018 THER/PROPH/DIAG INJ SC/IM CPT-4: 57957 01/28/2018 URINALYSIS NONAUTO W /O SCOPE CPT-4: 23751 01/26/2018 URINE CULTURE/ COLON Y COUNT CPT-4: 09327 01/26/2018 ROUTINE VENIPUNCTURE CPT-4: 48833 01/01/2018 PROTHROMBIN TIME CPT-4: 91433 01/01/2018 THER/PROPH/DIAG INJ SC/IM CPT-4: 51201 12/25/2017 TRIAMCINOLONE ACET I [place] NOS CPT-4: J3301 12/25/2017 DEXAMETHASONE SODIUM PHOS CPT-4: J1100 12/25/2017 STREP A ASSAY W/OPTIC CPT-4: 63785 12/11/2017 CEFTRIAXONE SODIUM I NJECTION CPT-4: J0696 12/11/2017 THER/PROPH/DIAG INJ SC/IM CPT-4: 84401 12/11/2017 ROUTINE VENIPUNCTURE CPT-4: 27560 12/01/2017 ANTISTREPTOLYSIN O T ITER CPT-4: 50967 12/01/2017 PROTHROMBIN TIME CPT-4: 50811 12/01/2017 VITAMIN D TOTAL (25 HYDROXY) CPT-4: 22804 12/01/2017 VITAMIN B-12 CPT-4: 93842 12/01/2017 [facility] C[facility]4: 92700 11/05/2017 ROUTINE VENIPUNCTURE CPT-4: 13843 10/14/2017 ANTISTREPTOLYSIN O T ITER CPT-4: 32050 10/14/2017 ROUTINE VENIPUNCTURE CPT-4: 13758 10/06/2017 PROTHROMBIN TIME CPT-4: 41119 10/06/2017 THER/PROPH/DIAG INJ SC/IM CPT-4: 46046 10/06/2017 TRIAMCINOLONE ACET I NJ NOS CPT-4: J3301 10/06/2017 ROUTINE VENIPUNCTURE CPT-4: 81665 10/01/2017 VITAMIN B-12 CPT-4: 80699 10/01/2017 FOLIC ACID CPT-4: 22494 10/01/2017 ASSAY THYROID STIM H ORMONE CPT-4: 72778 10/01/2017 ASSAY OF FREE THYROXINE CPT-4: 56718 10/01/2017 ASSAY TRIIODOTHYRONI NE (T3) CPT-4: 92800 10/01/2017 ASSAY OF BLOOD/URIC ACID CPT-4: 88858 10/01/2017 RHEUMATOID FACTOR QUANT CPT-4: 75020 10/01/2017 RBC SED RATE AUTOMATED CPT-4: 95834 10/01/2017 ANTISTREPTOLYSIN O T ITER CPT-4: 37513 10/01/2017 ASSAY OF IRON CPT-4: 57407 10/01/2017 ASSAY OF FERRITIN CPT-4: 20786 10/01/2017 ANTINUCLEAR ANTIBODIES CPT-4: 64251 10/01/2017 A1C HPLC CPT-4: 05457 10/01/2017 VITAMIN D TOTAL (25 HYDROXY) CPT-4: 63987 10/01/2017 THER/PROPH/DIAG INJ SC/IM CPT-4: 03000 09/05/2017 TRIAMCINOLONE ACET I NJ NOS CPT-4: J3301 09/05/2017 URINALYSIS NONAUTO W /O SCOPE CPT-4: 78074 09/05/2017 URINE CULTURE/ COLON Y COUNT CPT-4: 07744 09/05/2017 ROUTINE VENIPUNCTURE CPT-4: 66685 09/04/2017 PROTHROMBIN TIME CPT-4: 28267 09/04/2017 ROUTINE VENIPUNCTURE CPT-4: 24808 08/07/2017 COMPLETE CBC W/AUTO DIFF WBC CPT-4: 24297 08/07/2017 COMPREHEN METABOLIC PANEL CPT-4: 39583 08/07/2017 PROTHROMBIN TIME CPT-4: 52158 08/07/2017 INFLUENZA ASSAY W/OPTIC CPT-4: 77706 07/15/2017 ROUTINE VENIPUNCTURE CPT-4: 55559 07/15/2017 COMPREHEN METABOLIC PANEL CPT-4: 49802 07/15/2017 COMPLETE CBC W/AUTO DIFF WBC CPT-4: 13882 07/15/2017 CEFTRIAXONE SODIUM I NJECTION CPT-4: J0696 07/04/2017 THER/PROPH/DIAG INJ SC/IM CPT-4: 80713 07/04/2017 THER/PROPH/DIAG INJ SC/IM CPT-4: 84065 07/04/2017 TRIAMCINOLONE ACET I NJ NOS CPT-4: J3301 07/04/2017 CEFTRIAXONE SODIUM I NJECTION CPT-4: J0696 07/02/2017 THER/PROPH/DIAG INJ SC/IM CPT-4: 43294 07/02/2017 CEFTRIAXONE SODIUM I NJECTION CPT-4: J0696 07/01/2017 THER/PROPH/DIAG INJ SC/IM CPT-4: 74720 07/01/2017 ROUTINE VENIPUNCTURE CPT-4: 93575 06/19/2017 PROTHROMBIN TIME CPT-4: 35825 06/19/2017 THER/PROPH/DIAG INJ SC/IM CPT-4: 50069 04/01/2017 TRIAMCINOLONE ACET I NJ NOS CPT-4: J3301 04/01/2017 ROUTINE VENIPUNCTURE CPT-4: 34586 02/10/2017 PROTHROMBIN TIME CPT-4: 70203 02/10/2017 URINALYSIS NONAUTO W /O SCOPE CPT-4: 64041 02/10/2017 URINE CULTURE/ COLON Y COUNT CPT-4: 91162 02/10/2017 ROUTINE VENIPUNCTURE CPT-4: 89585 02/05/2017 PROTHROMBIN TIME CPT-4: 94538 02/05/2017 THROAT CULTURE CPT-4: 91002 02/03/2017 STREP A ASSAY W/OPTIC CPT-4: 06570 01/13/2017 ROUTINE VENIPUNCTURE CPT-4: 57909 12/18/2016 PROTHROMBIN TIME CPT-4: 11931 12/18/2016 URINE CULTURE/ COLON Y COUNT CPT-4: 77221 08/27/2016 ASSAY THYROID STIM H ORMONE CPT-4: 83325 08/27/2016 COMPREHEN METABOLIC PANEL CPT-4: 70018 08/27/2016 COMPLETE CBC W/AUTO DIFF WBC CPT-4: 54232 08/27/2016 PROTHROMBIN TIME CPT-4: 36418 08/27/2016 ROUTINE VENIPUNCTURE CPT-4: 33403 08/27/2016 ROUTINE VENIPUNCTURE CPT-4: 23098 05/24/2016 COMPREHEN METABOLIC PANEL CPT-4: 14038 05/24/2016 PROTHROMBIN TIME CPT-4: 11590 05/24/2016 URINALYSIS NONAUTO W /O SCOPE CPT-4: 35730 04/23/2016 URINE CULTURE/ COLON Y COUNT CPT-4: 16146 04/23/2016 PRESCRIP TRANSMIT A ERX SY CPT-4: G8553 04/23/2016 AEROBIC WOUND CULTUR E & STN CPT-4: 35160 04/17/2016 ROUTINE VENIPUNCTURE CPT-4: 11190 04/11/2016 PROTHROMBIN TIME CPT-4: 25283 04/11/2016 ROUTINE VENIPUNCTURE CPT-4: 66109 03/12/2016 COMPLETE CBC W/AUTO DIFF WBC CPT-4: 69902 03/12/2016 COMPREHEN METABOLIC PANEL CPT-4: 88988 03/12/2016 ASSAY THYROID STIM H ORMONE CPT-4: 14770 03/12/2016 PROTHROMBIN TIME CPT-4: 48679 03/12/2016 ROUTINE VENIPUNCTURE CPT-4: 96426 02/12/2016 PROTHROMBIN TIME CPT-4: 26410 02/12/2016 ROUTINE VENIPUNCTURE CPT-4: 77212 02/01/2016 PROTHROMBIN TIME CPT-4: 43504 02/01/2016 ROUTINE VENIPUNCTURE CPT-4: 62302 01/22/2016 PROTHROMBIN TIME CPT-4: 30324 01/22/2016 ROUTINE VENIPUNCTURE CPT-4: 58640 11/10/2015 PROTHROMBIN TIME CPT-4: 21563 11/10/2015 CEFTRIAXONE SODIUM I NJECTION CPT-4: J0696 11/10/2015 THER/PROPH/DIAG INJ SC/IM CPT-4: 98433 11/10/2015 EB VIRUS VCA G/M + E BNA + EA CPT-4: 17022|21883 x 2|74385 016 THROAT CULTURE CPT-4: 51662 11/09/2015 STREP A ASSAY W/OPTIC CPT-4: 44492 11/09/2015 STREP A ASSAY W/OPTIC CPT-4: 95031 10/02/2015 ROUTINE VENIPUNCTURE CPT-4: 60412 09/29/2015 COMPLETE CBC W/AUTO DIFF WBC CPT-4: 31773 09/29/2015 ASSAY OF IRON CPT-4: 63666 09/29/2015 PROTHROMBIN TIME CPT-4: 08516 09/29/2015 ROUTINE VENIPUNCTURE CPT-4: 94152 07/27/2015 PROTHROMBIN TIME CPT-4: 42266 07/27/2015 URINALYSIS NONAUTO W /O SCOPE CPT-4: 58165 06/30/2015 URINE CULTURE/ COLON Y COUNT CPT-4: 85468 06/30/2015 ROUTINE VENIPUNCTURE CPT-4: 42099 06/21/2015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 Dysuria[ICD10: R30.0] Kristine BRAMBILA DO [facility] CPT-4: 54305 05/31/2015 OFFICE/OUTPATIENT SIT NEW Diagnosis: Localized enlarged lymph nodes[ICD10: R59.0] Diagnosis: Benign intracranial hypertension[ICD10: G93.2] Diagnosis: Personal history of pulmonary embolism[ICD10: Z86.711] Diagnosis: prison (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[ICD10: Z79.01] Diagnosis: Tachycardia, unspecified[ICD10: R00.0] Meli MINER S. Sera KAPOOR DO [facility] CPT-4: 72241 05/24/2015 Plan of Care Planned Activity Notes C odes Status Date Visit Diagnosis Plan: Epistaxis Disc ussion: Afrin to right nares BID x 3 days Check PT/INR now ICD-9 : 784.7 ICD-10 : R04.0 02/17/2019 Visit Diagnosis Plan: Radiculopathy, site unspecified Discussion: Check L/S spine x-ray to start with ICD-9 : 724.4 ICD-10 : M54.10 02/17/2019 Appointment[phone] [facility] 02/17/2019 Care Plan: X-RAY EXAM L-S SPINE 2/3 VWS LOINC : 65925-3 Pending 02/17/2019 Appointment: Ivon Sky [address] [place], [place] [phone] [place] CANCELED 02/16/2019 Visit Diagnosis Plan: Unspecified [...] ICD-10 : K58.1 02/08/2019 Appointment: Ivon Sky [address] [place], [place] [id number] ACUTE ILLNESS 02/08/2019 Patient Education: Anusol-HC- Optimize[employer] Coupon [id number] https://www.Aledia.BetterDoctor/samplemd/resources/getResource/61/7f57enr1-3713-5437-2s Completed 02/08/2019 Visit Diagnosis Plan: Other fatigue [...] ICD-10 : J02.8 01/19/2019 Visit Diagnosis Plan: terminal carman (current ) use of 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 Discussion: pt/inr [...] ICD-10 : R05 01/19/2019 Appointment: Ivon Sky [address] [place] [address] ACUTE ILLNESS 01/19/2019 Visit Diagnosis Plan: Otalgia, [...] ICD-10 : R53.83 01/04/2019 Appointment: Ivon Sky [address] [place] [address] ACUTE ILLNESS 01/04/2019 Appointment: Kristine Brambila WPtel: [address] [place] [address] LAB 12/18/2018 Appointment: Kristine Brambila WPtel: [address] [place] [address] ACUTE ILLNESS 12/16/2018 Visit Diagnosis Plan: Anemia, [...] : R53.83 12/03/2018 Appointment: Kristine Brambila WPtel: [address] [place] [address] ACUTE ILLNESS 12/03/2018 Visit Diagnosis Plan: Acute [...] ICD-10 : R59.9 12/02/2018 Appointment: Ivon Sky [address] [place] [address] FOLLOW UP 12/02/2018 Visit Diagnosis Plan: prison (current ) use of 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 Discussion: pt/inr drawn in office ICD-9 : V58.61 ICD-10 : Z79.01 11/30/2018 Visit Diagnosis Plan: Acute suppurative otitis media without spontaneous rupture of ear drum, left ear Discussion: rocephin shot given in office. instructed to call or rtc with any new or worsening concerns. tylenol prn pain. ICD-9 : 382.00 ICD-10 : H66.002 11/30/2018 Appointment: Ivon Sky [address] [place] [address] ACUTE ILLNESS 11/30/2018 Patient Education: Coumadin- Opt[employer]RX Coupon [id number] https://www.Subject Company/samplemd/resources/getResource/61/2161e666-7t88-08a8-64 Completed 11/30/2018 Appointment: Kristine Brambilatel: [address] [place] [address] UA 11/20/2018 Appointment: Kristine Brambilatel: [address] [place] [address] INJECTION 11/12/2018 Visit Diagnosis Plan: Streptococcal pharyngitis Discussion: Strep A- positive ASO titer today along with CBC. Rocephin 1 gram. RTC tmrw for another injection. Patient states understanding. ICD-9 : 034.0 ICD-10 : J02.0 11/11/2018 Appointment: Lulu Navarro [address] [place] [address] ACUTE ILLNESS 11/11/2018 Appointment: Kristine Brambila WPtel: [address] [place] [address] ACUTE ILLNESS 10/27/2018 Appointment: Kristine Brambila: 0 [facility] US INJECTION 10/09/2018 Visit Diagnosis Plan: Acute recurrent maxillary sinusi tis Discussion: Rocephin 1 gram administered in clinic- patient tolerated well. Continue with supportive treatment at home as well. Tylenol for headache. Salt water gargles and sinus rinses advised. Patient states understanding. ICD-9 : 461.0 ICD-10 : J01.10/08/2018 Appointment: Lulu Navarro [address] [place], [place] [phone] [place] INJECTION 10/08/2018 Visit Diagnosis Plan: Acute recurrent maxillary sinusi tis Discussion: Rocephin- 1 gram administered in clinic. Patient tolerated well. Sinus rinses encouraged. Rest and fluids. Tylenol or Motrin for pain and fever. FU PRN. Patient states understanding. ICD-9 : 461.0 ICD-10 : J01.10/07/2018 Appointment: Lulu Navarro [address] [place], [place] [phone] ACUTE ILLNESS 10/07/2018 Visit Diagnosis Plan: Dizziness [...] ICD-10 : R42 09/25/2018 Appointment: Lulu Navarro [address] [place], [place] [phone] ACUTE ILLNESS 09/25/2018 Appointment: Kristine Brambila WPtel: 0 [facility] UA 09/10/2018 Visit Diagnosis Plan: Furuncle right hand Discussion: Will see if resolves with antibiotics but if does not then will need removed/biopsied ICD-9 : 680.4 ICD-10 : L02.521 09/08/2018 Visit Diagnosis Plan: Localized swelling, mass and lum p, neck Discussion: Update neck/thyroid ICD-9 : 784.2 ICD-10 : R22.1 09/08/2018 Visit Diagnosis Plan: Streptococcal infe ction, unspecified site Discussion: Rocephin 1gm IM x1 and fwup with cefdinir ICD-9 : 041.00 ICD-10 : A49.1 09/08/2018 Appointment: Kristine Brambila WPtel: [address] [place] [address] ACUTE ILLNESS 09/08/2018 Patient Education: cefdinir- OptimizeRX Coupon [id number] https://www.Subject Company/sampleWedWu/resources/getResource/61/w2951y28-1u86-1zub-y6 Completed 09/08/2018 Appointment: Kristine Brambila WPtel: [address] [place], [place] [id number] LAB 08/14/2018 Visit Diagnosis Plan: Acute sinusitis, [...] ICD-10 : H92.02 07/23/2018 Appointment: Ivon Sky [address] [place] [address] ACUTE ILLNESS 07/23/2018 Patient Education: cyclobenzaprine- Opti mizeRX Coupon [id number] https://www.Aledia.BetterDoctor/samplemd/resources/getResource/61/x969h6fl-y387-578o-et [email or web address].pdf Completed 07/23/2018 Visit Diagnosis Plan: Streptococcal infe ction, unspecified site Discussion: Randy oDve Sees dentist today t o assess tooth ICD-9 : 041.00 ICD-10 : A49.1 07/08/2018 Appointment: Kristine Brambila WPtel: [address] [place] [address] FOLLOW UP 07/08/2018 Patient Education: penicillin V potaltonu m- OptimizeRX Coupon [id number] https://www.Aledia.BetterDoctor/samplemd/resources/getResource/61/[email or web address] fa-[email or web address].pdf Completed 07/08/2018 Visit Diagnosis Plan: Localized enlarged [...] ICD-10 : K04.6 07/02/2018 Appointment: Ivon Sky [address] [place] [address] ACUTE ILLNESS 07/02/2018 Appointment: Kristine Brambila WPtel: [address] [place] [address] [place] LAB 06/22/2018 Appointment: Kristine Brambila WPtel: [address] [place] [address] 06/17/2018 Visit Diagnosis Plan: Acute sinusitis, unspecified Discussion: dc keflex. start cefdinir daily for 10 days. saline up nares prn congestion. if no improvement after antibiotics or worsening symtpoms, call clinic. ICD-9 : 461.9 ICD-10 : J01.90 06/02/2018 Appointment: Ivon Sky [address] ACUTE ILLNESS 06/02/2018 Appointment: Krist[facility]ila [phone] [facility]JECTION 05/12/2018 Visit Diagnosis Plan: prison (current ) use of 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 Discussion: pt/inr [...] ICD-10 : H70.002 05/11/2018 Appointment: Ivon Sky 504 [facility] FOLLOW UP 05/11/2018 Appointment: Kristine Brambila WPtel: [address] [place], [place] [phone] LAB 04/30/2018 Visit Diagnosis Plan: Acute sinusitis, unspecified Discussion: 40 mg kenalog given to patient in office. clindamycin prescribed for patient to take as directed. instructed to stop nasal sprays due to worsening pain/irritation and only use saline rinse up nares for now. call with any new or worsening symptoms. ICD-9 : 461.9 ICD-10 : J01.90 04/02/2018 Appointment: Ivon Sky [address] [place], [place] [phone] ACUTE ILLNESS 04/02/2018 Patient Education: Patient Medication Summary Completed 04/02/2018 Appointment: Krist[facility]ambila [phone] [facility] [facility] 03/24/2018 Patient Education: Patient Medication [...] ICD-10 : J30.89 03/16/2018 Appointment: Ivon Sky [address] [place] [address] ACUTE ILLNESS 03/16/2018 Patient Education: Patient Medication Summary Completed 03/16/2018 Appointment: Kristine Brambila WPtel: [address] [place] [address] [place] LAB 02/24/2018 Patient Education: Patient Medication Summary Completed 02/24/2018 Appointment: Kristine Brambila WPtel: [address] [place] [address] US RESCHEDULED 02/18/2018 Visit Diagnosis Plan: Abdominal distension (gaseous) Discussion: Wanda Restora Rx 1 daily Follow Up: 2 weeks ICD-9 : 787.3 ICD-10 : R14.0 02/16/2018 Visit Diagnosis Plan: Epigastric pain Discussion: Pepcid BID ICD-9 : 789.06 ICD-10 : R10.13 02/16/2018 Visit Diagnosis Plan: Diarrhea, unspecified Discussion: Wanda ICD-9 : 787.91 ICD-10 : R19.7 02/16/2018 Appointment: Kristine Brambila WPtel: [address] [place] [address] ACUTE ILLNESS 02/16/2018 Patient Education: Patient Medication Summary Completed 02/16/2018 Appointment: Kristine Brambila WPtel: [address] [place] [address] US INJECTION 02/05/2018 Patient Education: Patient Medication Summary Completed 02/05/2018 Appointment: Kristine Brambila WPtel: [address] [place] [address] US INJECTION 01/29/2018 Patient Education: Patient Medication Summary Completed 01/29/2018 Appointment: Kristine Brambila WPtel: [phone] [facility] [place] INJECTION 01/28/2018 Patient Education: Patient Medication [...] ICD-10 : Z77.21 01/26/2018 Appointment: Ivon Sky [address] [place], [place] [phone] ACUTE ILLNESS 01/26/2018 Patient Education: Patient Medication [...] ICD-10 : K13.79 01/01/2018 Appointment: Ivon Sky [address] [place], [place] [id number] ACUTE ILLNESS 01/01/2018 Patient Education: Patient [...] ICD-10 : G43.909 12/25/2017 Appointment: Ivon Sky [address] [place] [address] ACUTE ILLNESS 12/25/2017 Patient Education: Patient Medication Summary Completed 12/25/2017 Visit Diagnosis Plan: Acute pharyngitis, unspecified Discussion: rapid strep negative. rocephin injection given in office. clindamycin prescribed as well to start tomorrow for 10 days. increase fluid intake. call or rtc next week if new or worsening symptoms. ICD-9 : 462 ICD-10 : J02.9 12/11/2017 Appointment: Ivon Sky [address] [place] [address] ACUTE ILLNESS 12/11/2017 Patient Education: Patient Medication Summary Completed 12/11/2017 Appointment: Kristine Brambila WPtel: [address] [place] [address] LAB 12/01/2017 Patient Education: Patient Medication Summary Completed 12/01/2017 Visit Diagnosis Plan: Encounter for gyne cological examination (general) (routine) without abnormal findings Discussion: Pap done as has a history of choriocarcinoma Had mammogram last month ICD-9 : V72.31 ICD-10 : Z01.419 11/05/2017 Appointment: Kristine Brambila WPtel: [address] [place] [address] Annual Well Visit 11/05/2017 Patient Education: Patient Medication Summary Completed 11/05/2017 Appointment: Kristine Brambila WPtel: [address] [place] [address] LAB 10/14/2017 Patient Education: Patient Medication Summary Completed 10/14/2017 Care Plan: X-RAY EXAM OF SHOULDER right LOINC : 85826-9 Pending 10/07/2017 Visit Diagnosis Plan: Pain in right shoulder Discussion: xray ordered of right shoulder to rule out fracture. 40 mg kenalog given as one shot to assist with pain. ICD-9 : 719.41 ICD-10 : M25.511 10/06/2017 Visit Diagnosis Plan: terminal carman (current ) use of 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 Discussion: pt/inr completed at today's visit. ICD-9 : V58.61 ICD-10 : Z79.01 10/06/2017 Appointment: Ivon Sky [address] [place] [address] ACUTE ILLNESS 10/06/2017 Patient Education: Patient Medication [...] : R20.2 10/01/2017 Appointment: Kristine Brambila WPtel: [address] [place] [address] ACUTE ILLNESS 10/01/2017 Patient Education: Patient Medication [...] ICD-10 : T23.262A 09/10/2017 Appointment: Ivon Sky [address] [place], [place] [address] ACUTE ILLNESS 09/10/2017 Patient Education: Patient Medication Summary Completed 09/10/2017 Appointment: Kristine Brambila WPtel: [facility] [address] US INJECTION 09/05/2017 Patient Education: Patient Medication Summary Completed 09/05/2017 Appointment: Kristine Brambila WPtel: [address] [place], [place] [phone] [place] LAB 09/04/2017 Patient Education: Patient Medication Summary Completed 09/04/2017 Appointment: Kristine Brambila WPtel: [address] [place], [place] [phone] [place] LAB 08/07/2017 Patient Education: Patient Medication Summary Completed 08/07/2017 Patient Education: Patient Medication Summary Completed 07/21/2017 Care Plan: CHEST X-RAY 2VW FRONTAL&LATL LOINC : 43524-9 Pending 07/21/2017 Visit Diagnosis Plan: Acute upper [...] ICD-10 : K21.9 07/15/2017 Appointment: Ivon Sky [address] [place] [address] ACUTE ILLNESS 07/15/2017 Patient Education: Patient Medication Summary Completed 07/15/2017 Appointment: Kristine Brambila WPtel: [address] [place], [place] [phone] [place] INJECTION 07/04/2017 Patient Education: Patient Medication Summary Completed 07/04/2017 Appointment: Kristine Brambila WPtel: [address] [place], [place] [phone] [place] INJECTION 07/02/2017 Patient Education: Patient Medication [...] ICD-10 : H66.92 07/01/2017 Appointment: Ivon Sky [address] [place] [address] ACUTE ILLNESS 07/01/2017 Patient Education: Patient Medication Summary Completed 07/01/2017 Care Plan: US EXAM OF HEAD AND NECK Pending 07/01/2017 Appointment: Kristine Brambila WPtel: [phone] [facility] US LAB 06/19/2017 Patient Education: Patient Medication [...] ICD-10 : J18.9 05/27/2017 Appointment: Ivon Sky [address] [place] [address] ACUTE ILLNESS 05/27/2017 Patient Education: Patient Medication [...] ICD-10 : G47.00 05/20/2017 Appointment: Ivon Sky [address] [place] [address] ACUTE ILLNESS 05/20/2017 Patient Education: Patient Medication Summary Completed 05/20/2017 Visit Diagnosis Plan: Headache Discu ssion: Discussed likely Migraine Discussed MRI results Discussed changing acetazolamide to HCTZ ICD-9 : 784.0 ICD-10 : R51 04/22/2017 Visit Diagnosis Plan: Diplopia Discu ssion: Updated dilated eye exam ICD-9 : 368.2 ICD-10 : H53.2 04/22/2017 Appointment: Kristine Brambila WPtel: [address] [place] [address] FOLLOW UP 04/22/2017 Patient Education: Patient Medication Summary Completed 04/22/2017 Appointment: Kristine Brambila WPtel: [address] [place] [address] RESCHEDULED 04/07/2017 Visit Plan: Saline nasal flushes pr n. Tylenol/Motrin prn headache. Notify if persists/symptoms worsening. 04/01/2017 Visit Plan: Saline nasal flushes pr n. Tylenol/Motrin prn headache. Notify if persists/symptoms worsening. 04/01/2017 Visit NOS Plan: Plan Notes: Saline nasal flushes prn. Tyle... 04/01/2017 Visit Diagnosis Plan: Acute sinusitis, unspecified Discussion: Kenalog 40mg IM x1 Decadron/Garamycin Nose Carmel Mix Has appointment on April 28 with ENT ICD-9 : 461.9 ICD-10 : J01.90 04/01/2017 Appointment: Kristine Brambila WPtel: [phone] ACUTE ILLNESS 04/01/2017 Patient Education: Patient Medication Summary Completed 04/01/2017 Referral: Serjio Lugo WPtel: [address] [address] [place] Referral Appointment Requested 03/20/2017 Patient Education: Patient Medication Summary Completed 02/27/2017 Care Plan: CT ABDOMEN W/O DYE abd/pe lvis stone search LOINC : 02640-5 Pending 02/27/2017 Patient Education: Patient Medication Summary Completed 02/12/2017 Care Plan: MRI NECK SPINE W/O DYE LOINC : 63673-1 Pending 02/12/2017 Appointment: Kristine Brambila WPtel: [phone] [facility] LAB 02/10/2017 Patient Education: Patient Medication [...] Rest, Fluids... 02/05/2017 Appointment: Kristine Brambila WPtel: [phone] [facility] ACUTE ILLNESS 02/05/2017 Patient Education: Patient Medication Summary Completed 02/05/2017 Care Plan: Referral Order SNOMED-CT : [id number] Pending 02/05/2017 Appointment: Kristine Brambila WPtel: [address] [place] [address] THROAT SWAB 02/03/2017 Patient Education: Patient Medication Summary Completed 02/03/2017 Appointment: Kristine Brambila WPtel: [address] [place], [place] [phone] [place] 01/13 canceled~sl CANCELED 01/28/2017 Visit Plan: Supportive [...] Rest, Fluids... 01/13/2017 Appointment: Kristine Brambila WPtel: [address] [place] [address] ACUTE ILLNESS 01/13/2017 Patient Education: Patient Medication Summary Completed 01/13/2017 Appointment: Kristine Brambila WPtel: [address] [place], [place] [phone] LAB 12/18/2016 Patient Education: Patient Medication Summary Completed 12/18/2016 Visit Diagnosis Plan: Pain in unspecified joint Discussion: Will retry methotrexate since has worked in past to greatly reduce patient's pain--4 tabs week one then 5 tabs week 2 then 6 tabs weekly and fwup in 6 weeks ICD-9 : 719.49 ICD-10 : M25.50 11/27/2016 Appointment: Kristine Brambila WPtel: [address] [place] [address] US 6/6 lm~sl 11/26 confimed~sl MEDICATION REVIEW 11/27/2016 Patient Education: Patient Medication Summary Completed 11/27/2016 Visit Plan: Supportive care. Rest, Fluids, Tylenol/Motrin prn fever or bodyaches. Notify if worsening symptoms. 08/27/2016 Visit Plan: Supportive care. Rest, Fluids, Tylenol/Motrin prn fever or bodyaches. Notify if worsening symptoms. 08/27/2016 Visit NOS Plan: Plan Notes: Support gauri care. Rest, Fluids... 08/27/2016 Visit Diagnosis Plan: URI, ACUTE Dis cussion: Supportive care ICD-9 : 465.9 ICD-10 : J06.9 08/27/2016 Visit Diagnosis Plan: terminal carman (current ) use of 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 Discussion: PT/INR drawn ICD-9 : V58.61 ICD-10 : Z79.01 08/27/2016 Visit Diagnosis Plan: Dysuria Discus steven: Culture urine ICD-9 : 788.1 ICD-10 : R30.0 08/27/2016 Appointment: Kristine Brambila WPtel: [address] [place], [place] [phone] 08/26 confirmed`sl MEDICATION REVIEW 08/27/2016 Patient Education: Patient Medication Summary Completed 08/27/2016 Appointment: Kristine Brambila WPtel: [address] [place] [address] BP CHECK 07/08/2016 Patient Education: Patient Medication Summary Completed 07/08/2016 Appointment: Kristine Brambila WPtel: [address] [place], [place] [phone] [place] LAB 05/24/2016 Patient Education: Patient Medication Summary Completed 05/24/2016 Appointment: Kristine Brambila WPtel: [address] [place], [place] [phone] 04/24 will not be able to get [...] culture results 04/23/2016 Appointment: Nayeli Anderson [address] ACUTE ILLNESS 04/23/2016 Patient Education: Patient Medication [...] oral abx 04/17/2016 Appointment: Nayeli Anderson [address] ACUTE ILLNESS 04/17/2016 Patient Education: Patient Medication Summary Completed 04/17/2016 Patient Education: [facility] - Saving [employer] - 18-64 - Dynamic Portal ID Completed 04/17/2016 Appointment: Kristine Brambila WPtel: [address] [place] [address] LAB 04/11/2016 Patient Education: Patient Medication Summary [...] for migraines 03/12/2016 Appointment: Kristine Brambila WPtel: [address] [place], [place] [phone] 03/12 confirmed-sp FOLLOW UP 03/12/2016 Patient Education: Patient Medication Summary Completed 03/12/2016 Appointment: Kristine Brambila WPtel: [phone] [facility] US LAB 02/12/2016 Patient Education: Patient Medication Summary Completed 02/12/2016 App[facility]ment: [phone] [facility] 02/01/2016 Patient Education: Patient Medication Summary Completed 02/01/2016 Appointment: Kristine Brambila WPtel: [phone] [facility] LAB 01/22/2016 Patient Education: Patient Medication Summary [...] improvement 11/10/2015 Appointment: Julee Slater WPtel: 2[address] [facility]66[facility] ACUTE ILLNESS 11/10/2015 Patient Education: Patient Medication [...] care otherwise 11/09/2015 Appointment: Nayeli Anderson 2[address] [facility] ACUTE ILLNESS 11/09/2015 Patient Education: Patient Medication Summary Completed 11/09/2015 Referral: Maximiliano Neves WPtel: [phone] [id number] [place] Spoke with Sally at Dr. Ta's offic e. Patient is scheduled for 10/16/15 at 3:15pm. Demographics and notes have been faxed. Patient has been informed. -sp Initi ated 10/16/2015 Visit Plan: Proceed with biopsy/rem oval of right posterior neck node Mammogram ordered--US of right axilla if needed 10/10/2015 Appointment: Krist[facility]ambila [facility]el[phone] [facility] [facility] 10/08 confirmed ~sl FOLLOW UP 10/10/2015 Patient Education: Patient Medication Summary Completed 10/10/2015 Patient Education: [facility] - [employer]aving [employer] - 18-64 - Dynamic Portal ID Completed 10/10/2015 Care Plan: MAMMOGRAM SCREENING LOINC : 77110-8 Pending 10/10/2015 Visit Plan: Labs ordered - [...] with Dr Brambila for next week for snf management of pain 10/02/2015 Visit Plan: Labs ordered - peripher al smear, tsh, b12 - see order requisition Soft tissue US of neck ordered as well to further evaluate mass to right reported to be there over a year Antibiotic as well for URI that is not resolving - rapid strep was negative Diflucan given - Dr Patty olsen Discussed INR with Dr Brambila - coumadin change as above Refill written for hydros - needs to keep appt with Dr Brambila for 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 [facility] 09/29/2015 Patient Education: Patient Medication Summary Completed 09/29/2015 Appointment: Kristine Brambila WPtel: [address] [place], [place] [phone] [place] LAB 07/27/2015 Patient Education: Patient Medication Summary Completed 07/27/2015 Visit Plan: Trial of Savella Did no t tolerate lyrica Did not tolerate cymbalta 07/10/2015 Appointment: Kristine Brambila WPtel: [address] [place], [place] [phone] 07/10 appt confirmed cn FOLLOW UP 07/10/2015 Patient Education: Patient Medication Summary Completed 07/10/2015 Appointment: Kristine Brambila WPtel: [address] [place], [place] [phone] UA 06/30/2015 Patient Education: Patient Medication Summary Completed 06/30/2015 Visit Plan: Recommended Vitamin E o il topically bid to area of scar. Currently taking Amoxicillin for sinusitis. Recommend Flonase nasal spray 06/27/2015 Visit Plan: Recommended Vitamin E o il topically bid to area of scar. Currently taking Amoxicillin for sinusitis. Recommend Flonase nasal spray 06/27/2015 Appointment: Meli Hatch WPtel: [address] [place], [place] [phone] ACUTE ILLNESS 06/27/2015 Patient Education: Patient Medication Summary Completed 06/27/2015 Appointment: Meli Hatch WPtel: [address] [place], [place] [phone] [place] 06/22/15 appt confirmed and she will drea ng new insurance card cn ACUTE ILLNESS 06/26/2015 Appointment: Kristine Brambila WPtel: [address] [place], [place] [phone] [place] LAB 06/21/2015 Patient Education: Patient Medication Summary Completed 06/21/2015 Visit Plan: Add cymbalta at 30mg da loli Repeat PT/INR in 2weeks Recheck 1mo Awaiting ID to reschedule 06/08/2015 Visit Plan: Add cymbalta at 30mg da loli Repeat PT/INR in 2weeks Recheck 1mo Awaiting ID to reschedule 06/08/2015 Appointment: Kristine Brambila WPtel: [address] [place] [address] 06/07 lm ~sl 06/08 confirmed ~sl FOLLOW UP 06/08/2015 Patient Education: Patient Medication Summary Completed 06/08/2015 Patient Education: [facility] - Saving AutoInj - Cymbalta - 18-64 - Dynamic Portal ID Completed 06/08/2015 Patient Education: [facility] - Saving AutoInj - 18-64 - Dynamic Portal ID Completed 06/08/2015 Appointment: Kristine Brambila WPtel: [address] [place] [address] UA 05/31/2015 Patient Education: Patient Medication Summary Completed 05/31/2015 Visit Plan: Check PT/INR today Stop ped Lyrica due to fluid retention Has appt. scheduled at [facility] with hematology and infectious disease 06/08 Follow-up appt. in 2 weeks following appt. at . 05/24/2015 Visit Plan: Check PT/INR today Stop ped Lyrica due to fluid retention Has appt. scheduled at [facility] with hematology and infectious disease 06/08 Follow-up appt. in 2 weeks following appt. at . 05/24/2015 Appointment: Meli Hatch WPtel: [address] [place] [address] [place] NEW PATIENT 05/24/2015 Patient Education: Patient Medication Summary Completed 05/24/2015 Patient Education: [facility] - Saving AutoInj - 18-64 - Dynamic Portal ID Completed 05/24/2015 Referral: Annamarie Melo WPtel: [facility] [address] Referral Initiated Instructions Comment . Rapid [...] or bodyaches. Notify if worsening symptoms. . Culture collected Infection appears very mild Start with topical rx as above Good wound care reviewed Will call with culture results Pt to call if worsening and will add oral abx . Rapid strep negati ve Culture pending Rx as above New toothbrush in 24 hours Supportive care otherwise . Saline nasal flush es prn. Tylenol/Motrin prn headache. Notify if persists/symptoms worsening. . Check PT/INR today Stopped Lyrica due to fluid retention Has appt. scheduled at [facility] with hematology and infectious disease 06/08 Follow-up appt. in 2 weeks following appt. at . . Saline nasal flush es prn. Tylenol/Motrin prn headache. Notify if persists/symptoms worsening. . Trial of Savella Did not tolerate lyrica Did not tolerate cymbalta . Check PT/INR today Stopped Lyrica due to fluid retention Has appt. scheduled at [facility] with hematology and infectious disease 06/08 Follow-up appt. in 2 weeks following appt. at . . Add cymbalta at 30 mg daily Repeat PT/INR in 2weeks Recheck 1mo Awaiting ID to reschedule . Check CMP, CBC, TS H, PT/INR today Continue current meds Patient going for botox injections for migraines . Add cymbalta at 30 mg daily Repeat PT/INR in 2weeks Recheck 1mo Awaiting ID to reschedule . Labs ordered - per ipheral smear, [...] with Dr Brambila for next week for snf management of pain . Recommended Vitami n E oil topically bid to area of scar. Currently taking Amoxicillin for sinusitis. Recommend Flonase nasal spray . Check CMP, CBC, TS H, PT/INR today Continue current meds Patient going for botox injections for migraines . Culture collected Infection appears very mild Start with topical rx as above Good wound care reviewed Will call with culture results Pt to call if worsening and will add oral abx . Office dip positiv e for leuks - on pyridium Rx as above Culture pending Supportive care reviewed Will call with culture results . 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 Rocephin 1gm IM no w EBV Antibodies (PT/INR) Same supportive information as yesterday. UC for worsening, call Friday if no improvement . Rocephin 1gm IM no w EBV Antibodies (PT/INR) Same supportive information as yesterday. UC for worsening, call Friday if no improvement . Recommended Vitami n E oil topically [...] worsening symptoms.New toothebrush in 5 days . Check CMP, CBC, TS H, PT/INR today Continue current meds Patient going for botox injections for migraines . Office dip positiv e for leuks - on pyridium Rx as above Culture pending Supportive care reviewed Will call with culture results . Rocephin 1gm IM no w EBV Antibodies (PT/INR) Same supportive information as yesterday. UC for worsening, call Friday if no improvement . Rocephin 1gm IM no w EBV Antibodies (PT/INR) Same supportive information as yesterday. UC for worsening, call Friday if no improvement . Proceed with biops y/removal of right posterior neck node Mammogram ordered--US of right axilla if needed . Supportive care. Rest, Fluids, Tylenol/Motrin prn fever or bodyaches. Notify if worsening symptoms.New toothebrush in 5 days
--- OUTSIDE RECORDS SUMMARY | 2020-01-28 13:44 | XMS REPORT | CCD ---
Author Author Heydi Hatch APRN Organization [facility] Address [address] [place] [address] Phone Care Team Providers Care Molding Technician Name Role Phone Kristine Brambila D.O., PP Unavailable CCM Unavailable Summary Purpose Interface Exchange Insurance Providers Payer name Policy type / Coverage type Covered alliance party ID Effective Begin Date Effective End Date Blue Cross Blue Shield Blue Cross/Bl ue Shield [id number] 2018 Un known Family History Family History data not found Social History Social History Element Codes Description Effective Dates Tobacco history SNOMED CT: 88548405 Current every day smoker 06/08/2015 Allergies, Adverse [...] 786.2 ICD-10: R05 Active 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 ICD-9: V58.61 ICD-10: [...] 02/10/2017 Unknown Pelvic and perineal pain ICD-9: [id number] ICD-10: R10.2 Active 02/10/2017 Unknown Cervicalgia ICD-9: [...] ICD-9: 786.2 ICD-10: R05 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 ICD-9: V58.61 ICD-10: [...] 02/10/2017 Active Pelvic and perineal pain ICD-9: [id number] ICD-10: R10.2 02/10/2017 Active Cervicalgia ICD-9: 723.1 [...] Instruc tions Start Date Stop Date Sta s Fill Instructions warfarin 5 mg tablet RxNorm: 433369 1 Tablet(s) PO QD 02/17/2019 04/17/2019 Active acetazolamide 125 mg tablet RxNorm: 946119 1 TABLET(S) PO BID 02/15/2019 04/15/2019 Active cholestyramine (with sugar) 4 gram oral powder RxNorm: 410522 1 UNIT DOSE PO QD 02/15/2019 04/15/2019 Ac tive penicillin V potassi um 500 mg tablet RxNorm: 213460 1 Tablet(s) PO BID 02/10/2019 02/09/2019 In active penicillin V potassi um 500 mg tablet RxNorm: 298672 1 Tablet(s) PO BID 02/10/2019 02/16/2019 In active Diflucan 150 mg tablet RxNorm: 971415 TABLET(S) 1 TABLET(S) PO QW NEEDED 02/08/2019 No Stop Date Active Anusol-HC 25 mg rect al suppository RxNorm: 2686745 1 Suppository RTL QD as needed 02/08/2019 03/09/2019 Ac tive hydrocodone 10 mg-ac etaminophen 325 mg tablet RxNorm: 740573 1 Tablet(s) PO Q4-6H as needed for pain 02/01/2019 No Stop Date Active hydrocodone 10 mg-ac etaminophen 325 mg tablet RxNorm: 695351 1 Tablet(s) PO Q4-6H as needed for pain 02/01/2019 No Stop Date Active Diflucan 150 mg tablet RxNorm: 666437 Tablet(s) TABLET(S) 1 TABLET(S) PO QW NEEDED 01/28/2019 No Stop Date Active Vistaril 25 mg capsule RxNorm: 364004 1 Capsule(s) PO TID 01/27/2019 07/25/2019 Active ProAir HFA 90 mcg/ac tuation aerosol inhaler RxNorm: 849013 2 Puff(s) INH Q4H as needed 01/20/2019 No Stop Date Active Tessalon Perles 100 mg capsule RxNorm: 695878 1 Capsule(s) PO TID a s needed for cough 01/20/2019 No Stop Date Active doxycycline hyclate 100 mg capsule RxNorm: 8485690 1 Capsule(s) PO BID 01/20/2019 01/19/2019 In active doxycycline hyclate 100 mg capsule RxNorm: 4700568 1 Capsule(s) PO BID 01/20/2019 01/26/2019 In active Coumadin 5 mg tablet RxNorm: 212487 1 Tablet(s) PO QD (on Fri, , Fri, , Fri and Fri) 01/05/2019 06/09/2019 Active Generic For:COUMADIN 5MG TAB 05/25/2018 3:20:45 PM N O T I C E Last quantity doesn't match original quantity amoxicillin 500 mg c apsule RxNorm: 999802 1 Capsule(s) PO BID 01/05/2019 01/14/2019 Inactive amoxicillin 500 mg c apsule RxNorm: 846579 1 Capsule(s) PO BID 01/05/2019 01/04/2019 Inactive hydrocodone 10 mg-ac etaminophen 325 mg tablet RxNorm: 169505 1 Tablet(s) PO Q4-6H as needed for pain 01/01/2019 01/31/2019 Inactive cyclobenzaprine 10 m g tablet RxNorm: 165122 1 TABLET(S) PO QD NEEDED 12/23/2018 06/20/2019 Ac tive Coumadin 5 mg tablet RxNorm: 886708 Tablet(s) TAKE 1 TABLET(S) BY MOUTH FRI, FRI, FRI, Friday12/23/2018 01/04/2019 Inactive Generic For:COUMADIN 5MG TA B 05/25/2018 3:20:45 PM N O T I C E Last quantity doesn't match original quantity Diflucan 150 mg tablet RxNorm: 848974 Tablet(s) TABLET(S) 1 TABLET(S) PO QW NEEDED 12/23/2018 01/27/2019 Inactive Vitamin D2 50,000 un it capsule RxNorm: 0199814 1 Capsule(s) PO QW 12/04/2018 03/03/2019 Active Medrol (Juan Francisco) 4 mg ta blets in a dose pack RxNorm: 879719 Tablet(s) PO as direc liane 12/04/2018 12/03/2018 In active Vitamin D2 50,000 un it capsule RxNorm: 8022572 1 Capsule(s) PO QW 12/04/2018 12/03/2018 Inactive Medrol (Juan Francisco) 4 mg ta blets in a dose pack RxNorm: 452994 Tablet(s) PO as [facility] 12/04/2018 01/19/2019 In active Zithromax Z-Juan Francisco 250 mg tablet RxNorm: 378188 Tablet(s) PO take as directed 12/02/2018 02/16/2019 In active Vistaril 25 mg capsule RxNorm: 859306 Capsule(s) 1 Capsule(s) PO TID as needed for anxiety 11/30/2018 02/27/2019 Active Coumadin 5 mg tablet RxNorm: 804902 Tablet(s) TAKE 1 TABLET(S) BY MOUTH MON, FRI, FRI, Friday11/30/2018 12/22/2018 Inactive Generic For:COUMADIN 5MG TA B 05/25/2018 3:20:45 PM N O T I C E Last quantity doesn't match original quantity Diflucan 150 mg tablet RxNorm: 207322 Tablet(s) TABLET(S) 1 TABLET(S) PO QW NEEDED 11/26/2018 12/22/2018 Inactive cholestyramine (with sugar) 4 gram oral powder RxNorm: 967712 1 UNIT DOSE PO QD 11/24/2018 02/14/2019 In active acetazolamide 125 mg tablet RxNorm: 118745 1 Tablet(s) PO BID 11/24/2018 02/14/2019 Inactive cyclobenzaprine 10 m g tablet RxNorm: 119017 1 Tablet(s) PO QD as needed 11/17/2018 12/22/2018 In active hydrocodone 10 mg-ac etaminophen 325 mg tablet RxNorm: 618099 1 Tablet(s) PO Q4-6H as needed for pain 11/05/2018 01/31/2019 Inactive acetazolamide 125 mg tablet RxNorm: 688507 1 TABLET(S) PO BID 10/26/2018 11/23/2018 Inactive cholestyramine (with sugar) 4 gram oral powder RxNorm: 746269 1 UNIT DOSE PO QD 10/26/2018 11/23/2018 In active Coumadin 5 mg tablet RxNorm: 377465 TAKE 1 TABLET(S) BY MOUTH FRI, FRI, FRI, Friday10/26/2018 11/29/2018 Inactive Generic For:COUMADIN 5MG TAB 05/25/2018 3:20:45 PM N O T I C E Last quantity doesn't match original quantity Diflucan 150 mg tablet RxNorm: 541263 TABLET(S) 1 TABLET(S) PO QW NEEDED 10/26/2018 11/25/2018 In active hydrocodone 10 mg-ac etaminophen 325 mg tablet RxNorm: 081049 1 Tablet(s) PO Q4-6H as needed for pain 10/08/2018 11/04/2018 Inactive acetazolamide 125 mg tablet RxNorm: 731462 1 Tablet(s) PO BID 09/24/2018 10/23/2018 Inactive Coumadin 5 mg tablet RxNorm: 010080 TAKE 1 TABLET(S) BY MOUTH FRI, FRI, FRI, Friday09/24/2018 10/25/2018 Inactive Generic For:COUMADIN 5MG TAB 05/25/2018 3:20:45 PM N O T I C E Last quantity doesn't match original quantity Diflucan 150 mg tablet RxNorm: 073596 Tablet(s) 1 Tablet(s) PO QW as needed 09/24/2018 10/25/2018 In active cyclobenzaprine 10 m g tablet RxNorm: 820830 1 Tablet(s) PO QD as needed 09/24/2018 11/16/2018 In active Vistaril 25 mg capsule RxNorm: 056796 1 Capsule(s) PO TID as needed for anxiet y 09/24/2018 11/29/2018 In active cholestyramine (with sugar) 4 gram oral powder RxNorm: 983004 1 Unit Dose PO QD 09/24/2018 10/23/2018 In active Pyridium 200 mg tablet RxNorm: 1208964 1 Tablet(s) PO TID 09/10/2018 09/19/2018 Inactive Pyridium 200 mg tablet RxNorm: 4376082 1 Tablet(s) PO TID 09/10/2018 09/09/2018 Inactive hydrocodone 10 mg-ac etaminophen 325 mg tablet RxNorm: 985772 1 Tablet(s) PO Q4-6H as needed for pain 09/08/2018 10/07/2018 Inactive cefdinir 300 mg capsule RxNorm: 648724 1 Capsule(s) PO BID 09/08/2018 09/21/2018 Inactive hydrocodone 10 mg-ac etaminophen 325 mg tablet RxNorm: 862053 1 Tablet(s) PO Q4-6H as needed for pain 08/13/2018 09/07/2018 Inactive cyclobenzaprine 10 m g tablet RxNorm: 201309 1 Tablet(s) PO QD as needed 07/23/2018 09/23/2018 In active Diflucan 150 mg tablet RxNorm: 590866 Tablet(s) 1 Tablet(s) PO QW as needed 07/23/2018 09/23/2018 In active Ciprodex 0.3 %-0.1 % ear drops,suspension RxNorm: 835992 4 Drop(s) left otic ( ear) BID 07/23/2018 07/29/2018 Inactive hydrocodone 10 mg-ac etaminophen 325 mg tablet RxNorm: 016772 1 Tablet(s) PO Q4-6H as needed for pain 07/16/2018 08/12/2018 Inactive penicillin V potassi um 500 mg tablet RxNorm: 798154 1 Tablet(s) PO Q6H 07/08/2018 07/17/2018 In active cyclobenzaprine 10 m g tablet RxNorm: 720787 1 Tablet(s) PO QD as needed 06/22/2018 07/22/2018 In active Vistaril 25 mg capsule RxNorm: 933809 1 Capsule(s) PO TID as needed for anxiet y 06/22/2018 09/23/2018 In active cholestyramine (with sugar) 4 gram oral powder RxNorm: 546710 1 Unit Dose PO QD 06/22/2018 09/23/2018 In active hydrocodone 10 mg-ac etaminophen 325 mg tablet RxNorm: 503786 1 Tablet(s) PO Q4-6H as needed for pain 06/17/2018 07/15/2018 Inactive cefdinir 300 mg capsule RxNorm: 350197 1 Capsule(s) PO BID 06/02/2018 06/11/2018 Inactive Diflucan 150 mg tablet RxNorm: 678726 Tablet(s) 1 Tablet(s) PO QW as needed 06/02/2018 07/22/2018 In active Coumadin 5 mg tablet RxNorm: 128294 TAKE 1 TABLET(S) BY MOUTH FRI, FRI, FRI, Friday05/25/2018 07/15/2018 Inactive Generic For:COUMADIN 5MG TAB 05/25/2018 3:20:45 PM N O T I C E Last quantity doesn't match original quantity Imitrex 50 mg tablet RxNorm: 834087 Tablet(s) 1 Tablet(s) PO at headache. re peat in 2 hours if no relief. no more than 2 tabs per day 05/19/2018 No Stop Date Active cholestyramine (with sugar) 4 gram oral powder RxNorm: 732226 1 Unit Dose PO QD 05/19/2018 11/14/2018 In active Vistaril 25 mg capsule RxNorm: 361604 1 Capsule(s) PO TID 05/19/2018 11/14/2018 Inactive Coumadin 5 mg tablet RxNorm: 568453 Tablet(s) TAKE 1 TABLET(S) BY MOUTH FRI, FRI, FRI, Friday05/19/2018 05/24/2018 Inactive Generic For:COUMADIN 5MG TA B N O T I C E Last quantity doesn't match original quantity acetazolamide 125 mg tablet RxNorm: 354683 1 Tablet(s) PO BID 05/19/2018 09/23/2018 Inactive cyclobenzaprine 10 m g tablet RxNorm: 432377 1 Tablet(s) PO QD as needed 05/19/2018 11/17/2018 In active Coumadin 7.5 mg tablet RxNorm: 641311 1 Tablet(s) PO QD , , 05/19/2018 01/04/2019 In active ketorolac 10 mg tablet RxNorm: 570122 1 Tablet(s) PO QHS as needed 05/11/2018 No Stop Date Active promethazine 12.5 mg tablet RxNorm: 765438 1 Tablet(s) PO Q6H as needed 04/23/2018 04/22/2018 In active acetazolamide 125 mg tablet RxNorm: 593623 1 Tablet(s) PO BID 04/23/2018 05/18/2018 Inactive Coumadin 5 mg tablet RxNorm: 580770 TAKE 1 TABLET(S) BY MOUTH MON, FRI, FRI, Friday04/23/2018 05/18/2018 Inactive Generic For:COUMADIN 5MG TAB N O T I C E Last quantity doesn't match original quantity Imitrex 50 mg tablet RxNorm: 070363 1 Tablet(s) PO at headache. repeat in 2 hours if no relief. no more than 2 tabs per day 04/23/2018 05/18/2018 Inactive cyclobenzaprine 10 m g tablet RxNorm: 919909 1 Tablet(s) PO QD as needed 04/23/2018 05/18/2018 In active clindamycin HCl 300 mg capsule RxNorm: 880903 1 Capsule(s) PO TID 04/02/2018 04/11/2018 Inactive hydrocodone 10 mg-ac etaminophen 325 mg tablet RxNorm: 348768 1 Tablet(s) PO Q4-6H as needed for pain 03/24/2018 06/16/2018 Inactive promethazine 12.5 mg tablet RxNorm: 442082 1 Tablet(s) PO Q6H 03/23/2018 04/23/2018 Inactive Imitrex 50 mg tablet RxNorm: 195573 1 Tablet(s) PO at headache. repeat in 2 hours if no relief. no more than 2 tabs per day 03/23/2018 04/22/2018 Inactive Diflucan 150 mg tablet RxNorm: 488561 1 Tablet(s) PO QW as needed 03/23/2018 06/01/2018 Inactive Coumadin 5 mg tablet RxNorm: 235875 Tablet(s) 1 Tablet(s) PO Mon, Wed, Fri, Sun 03/23/2018 04/22/2018 In active Imitrex 100 mg tablet RxNorm: 883843 Tablet(s) PO take one tablet at sign of headache and repeat in 2 hours if ineffective 03/16/2018 04/01/2018 Inactive ondansetron HCl 4 mg tablet RxNorm: 486852 1 Tablet(s) PO Q4H as needed for nausea 02/24/2018 04/01/2018 In active hydrocodone 10 mg-ac etaminophen 325 mg tablet RxNorm: 566287 1 Tablet(s) PO Q4-6H as needed for pain 02/24/2018 03/23/2018 Inactive Coumadin 5 mg tablet RxNorm: 530115 Tablet(s) 1 Tablet(s) PO Mon, Wed, Fri, Sun 02/20/2018 03/22/2018 In active promethazine 12.5 mg tablet RxNorm: 064470 1 Tablet(s) PO Q6H 02/20/2018 03/22/2018 Inactive Pepcid 40 mg tablet RxNorm: 224776 1 Tablet(s) PO BID for stomach 02/16/2018 03/17/2018 In active Flagyl 500 mg tablet RxNorm: 661959 1 Tablet(s) PO TID 02/16/2018 02/25/2018 Inactive Imitrex 50 mg tablet RxNorm: 449437 1 Tablet(s) PO at headache. repeat in 2 hours if no relief. no more than 2 tabs per day 01/27/2018 03/15/2018 Inactive Coumadin 5 mg tablet RxNorm: 216954 1 Tablet(s) PO Mon, Wed, Fri, Sun 01/27/2018 02/20/2018 In active amoxicillin 875 mg t ablet RxNorm: 121257 1 Tablet(s) PO BID 01/26/2018 02/04/2018 Inactive Imitrex 50 mg tablet RxNorm: 178217 1 Tablet(s) PO at headache. repeat in 2 hours if no relief. no more than 2 tabs per day 01/26/2018 03/22/2018 Inactive cyclobenzaprine 10 m g tablet RxNorm: 655033 1 Tablet(s) PO QD as needed 01/23/2018 03/23/2018 In active promethazine 12.5 mg tablet RxNorm: 645817 1 Tablet(s) PO Q6H 01/23/2018 02/19/2018 Inactive Diflucan 150 mg tablet RxNorm: 961380 1 Tablet(s) PO QW as needed 01/22/2018 03/22/2018 Inactive acetazolamide 125 mg tablet RxNorm: 789948 1 Tablet(s) PO BID 01/22/2018 04/21/2018 Inactive Imitrex 50 mg tablet RxNorm: 719601 1 Tablet(s) PO at headache. repeat in 2 hours if no relief. no more than 2 tabs per day 01/02/2018 01/25/2018 Inactive Ciprodex 0.3 %-0.1 % ear drops,suspension RxNorm: 716494 4 Drop(s) otic (ear) BID 01/01/2018 01/07/2018 In active Coumadin 7.5 mg tablet RxNorm: 258268 1 Tablet(s) PO QD , Th, 12/29/2017 05/18/2018 In active Coumadin 5 mg tablet RxNorm: 933603 1 Tablet(s) PO Mon, Wed, Fri, Sun 12/29/2017 01/26/2018 In active cyclobenzaprine 10 m g tablet RxNorm: 559863 1 Tablet(s) PO QD as needed 12/29/2017 01/22/2018 In active clindamycin HCl 300 mg capsule RxNorm: 413042 1 Capsule(s) PO TID 12/26/2017 12/25/2017 Inactive Imitrex 50 mg tablet RxNorm: 261599 1 Tablet(s) PO at headache. repeat in 2 hours if no relief. no more than 2 tabs per day 12/26/2017 01/01/2018 Inactive clindamycin HCl 300 mg capsule RxNorm: 230872 1 Capsule(s) PO TID 12/26/2017 01/04/2018 Inactive Zithromax Z-Juan Francisco 250 mg tablet RxNorm: 608471 Tablet(s) PO take as directed 12/25/2017 12/25/2017 In active promethazine 12.5 mg tablet RxNorm: 684118 1 Tablet(s) PO Q6H 12/25/2017 01/22/2018 Inactive clindamycin HCl 300 mg capsule RxNorm: 746810 1 Capsule(s) PO TID 12/11/2017 12/17/2017 Inactive Vistaril 25 mg capsule RxNorm: 806166 1 Capsule(s) PO TID as needed for anxiet y 12/04/2017 05/18/2018 In active cholestyramine (with sugar) 4 gram oral powder RxNorm: 909794 1 Unit Dose PO QD 12/04/2017 05/18/2018 In active Coumadin 7.5 mg tablet RxNorm: 206073 1 Tablet(s) PO QD 12/04/2017 12/28/2017 Inactive Coumadin 5 mg tablet RxNorm: 074813 1 Tablet(s) PO Friday through Friday12/04/2017 12/28/2017 In active hydrocodone 10 mg-ac etaminophen 325 mg tablet RxNorm: 086624 1 Tablet(s) PO Q4-6H as needed for pain 12/01/2017 02/23/2018 Inactive hydrocodone 10 mg-ac etaminophen 325 mg tablet RxNorm: 947172 1 Tablet(s) PO Q4-6H as needed for pain 11/03/2017 11/30/2017 Inactive cyclobenzaprine 10 m g tablet RxNorm: 078725 1 Tablet(s) PO QD as needed 10/30/2017 12/28/2017 In active cholestyramine (with sugar) 4 gram oral powder RxNorm: 905565 1 Unit Dose PO QD 10/30/2017 11/28/2017 In active amoxicillin 875 mg t ablet RxNorm: 355729 1 Tablet(s) PO BID 10/08/2017 10/07/2017 Inactive amoxicillin 875 mg t ablet RxNorm: 115955 1 Tablet(s) PO BID 10/08/2017 10/17/2017 Inactive penicillin V potassi um 500 mg tablet RxNorm: 624320 1 Tablet(s) PO BID 10/06/2017 10/07/2017 In active hydrocodone 10 mg-ac etaminophen 325 mg tablet RxNorm: 361387 1 Tablet(s) PO Q4-6H as needed for pain 10/06/2017 11/02/2017 Inactive hydrocodone 10 mg-ac etaminophen 325 mg tablet RxNorm: 903504 1 Tablet(s) PO Q4-6H as needed for pain 10/06/2017 12/31/2018 Inactive Vigamox 0.5 % eye drops RxNorm: 842603 1 Drop(s) ophthalmic (eye) TID ONLY ADMI NISTER IF INFECTION 10/03/2017 10/02/2017 Inactive Vigamox 0.5 % eye drops RxNorm: 704442 1 Drop(s) ophthalmic (eye) TID ONLY ADMI NISTER IF INFECTION 10/03/2017 10/09/2017 Inactive cholestyramine (with sugar) 4 gram oral powder RxNorm: 256680 1 Unit Dose PO QD 09/23/2017 10/30/2017 In active acetazolamide 125 mg tablet RxNorm: 336893 1 Tablet(s) PO BID 09/23/2017 12/21/2017 Inactive Coumadin 5 mg tablet RxNorm: 909050 1 Tablet(s) PO QD FRIDAY THROUGH Friday09/17/2017 11/04/2017 In active mupirocin 2 % topica l ointment RxNorm: 102951 1 Application TOP TID 09/10/2017 11/04/2017 Inactive hydrocodone 10 mg-ac etaminophen 325 mg tablet RxNorm: 116668 1 Tablet(s) PO Q4-6H as needed for pain 09/08/2017 10/05/2017 Inactive Questran 4 gram powd er for susp in a packet RxNorm: 435296 MIX ONE PACKET IN 6 O UNCES OF APPLE SAUCE OR OTHER SOFT FOOD AND EAT ONCE DAILY 09/02/2017 11/04/2017 Inactive Diflucan 150 mg tablet RxNorm: 457452 1 Tablet(s) PO QW as needed 08/14/2017 01/21/2018 Inactive hydrocodone 10 mg-ac etaminophen 325 mg tablet RxNorm: 173279 1 Tablet(s) PO Q4-6H as needed for pain 08/11/2017 09/07/2017 Inactive Tamiflu 75 mg capsule RxNorm: 623957 1 Capsule(s) PO QD 08/11/2017 08/10/2017 Inactive Tamiflu 75 mg capsule RxNorm: 095949 1 Capsule(s) PO QD 08/11/2017 08/20/2017 Inactive Coumadin 5 mg tablet RxNorm: 415181 1 Tablet(s) PO QD FRIDAY THROUGH Friday07/22/2017 09/16/2017 In active Coumadin 5 mg tablet RxNorm: 801201 TAKE ONE TABLET BY MOUTH ONCE DAILY THROUGH Friday07/16/2017 07/21/2017 Inactive cyclobenzaprine 10 m g tablet RxNorm: 363015 1 Tablet(s) PO QD as needed 07/15/2017 10/30/2017 In active hydrocodone 10 mg-ac etaminophen 325 mg tablet RxNorm: 175506 1 Tablet(s) PO Q4-6H as needed for pain 07/14/2017 08/10/2017 Inactive warfarin 5 mg tablet RxNorm: 271633 1 Tablet(s) PO Fri Sat Jamee ford is due for PT/INR 06/18/2017 02/16/2019 Inactive Questran Light 4 gra m powder for susp in a packet RxNorm: 0502178 1 PO QD 06/18/2017 11/04/2017 In active cyclobenzaprine 10 m g tablet RxNorm: 511119 1 Tablet(s) PO QD as needed 06/18/2017 07/14/2017 In active hydrocodone 10 mg-ac etaminophen 325 mg tablet RxNorm: 431037 1 Tablet(s) PO Q4-6H as needed for pain 06/18/2017 07/13/2017 Inactive Lunesta 1 mg tablet RxNorm: 189239 1 Tablet(s) PO QHS as needed 05/27/2017 06/25/2017 Inactive Zithromax Z-Juan Francisco 250 mg tablet RxNorm: 861902 1 Tablet(s) PO Take a s directed 05/27/2017 11/04/2017 In active ProAir HFA 90 mcg/ac tuation aerosol inhaler RxNorm: 614797 2 Puff(s) INH Q4H 05/27/2017 01/19/2019 In active ProAir HFA 90 mcg/ac tuation aerosol inhaler RxNorm: 850501 2 Puff(s) INH Q4H 05/27/2017 05/26/2017 In active promethazine 6.25 mg -codeine 10 mg/5 mL syrup RxNorm: 261284 5 Milliliter(s) PO Q4 H as needed 05/27/2017 11/04/2017 Inactive Diflucan 150 mg tablet RxNorm: 426877 1 Tablet(s) PO QW as needed 05/26/2017 05/25/2017 Inactive cyclobenzaprine 10 m g tablet RxNorm: 455176 1 Tablet(s) PO QD as needed 05/20/2017 06/18/2017 In active Lunesta 2 mg tablet RxNorm: 825606 1 Tablet(s) PO QHS 05/20/2017 05/27/2017 Inactive Zithromax Z-Juan Francisco 250 mg tablet RxNorm: 732657 Tablet(s) PO As Direc liane 05/12/2017 05/19/2017 In active cyclobenzaprine 5 mg tablet RxNorm: 139493 1 Tablet(s) PO QPM 03/28/2017 05/19/2017 Inactive Vistaril 25 mg capsule RxNorm: 420410 1 Capsule(s) PO TID as needed for anxiet y 03/28/2017 09/23/2017 In active Questran 4 gram powd er for susp in a packet RxNorm: 883359 1 Unit(s) PO QD 03/06/2017 06/18/2017 In active Cipro 500 mg tablet RxNorm: 045851 1 Tablet(s) PO BID 02/27/2017 02/26/2017 Inactive Pyridium 200 mg tablet RxNorm: 6926198 1 Tablet(s) PO TID for bladder spasms 02/27/2017 03/31/2017 In active Cipro 500 mg tablet RxNorm: 056511 1 Tablet(s) PO BID 02/27/2017 03/05/2017 Inactive Levsin 0.125 mg tablet RxNorm: 7338735 1 Tablet(s) PO QID as needed for spasm 02/25/2017 11/04/2017 In active tamsulosin 0.4 mg ca psule RxNorm: 025169 1 Capsule(s) PO QPM 02/25/2017 03/26/2017 Inactive tamsulosin 0.4 mg ca psule RxNorm: 430568 1 Capsule(s) PO QPM 02/25/2017 02/24/2017 Inactive Pyridium 100 mg tablet RxNorm: 8974322 1 Tablet(s) PO TID as needed 02/21/2017 03/31/2017 In active acetazolamide 125 mg tablet RxNorm: 395622 1 Tablet(s) PO BID 02/07/2017 09/23/2017 Inactive Questran 4 gram powd er for susp in a packet RxNorm: 111948 1 Unit(s) PO QD 02/06/2017 03/06/2017 In active cyclobenzaprine 5 mg tablet RxNorm: 160751 1 Tablet(s) PO QPM 02/05/2017 03/27/2017 Inactive BuSpar 5 mg tablet RxNorm: 386094 1 Tablet(s) PO BID 02/03/2017 03/31/2017 Inactive Diflucan 150 mg tablet RxNorm: 293249 1 Tablet(s) PO QW as needed 01/15/2017 05/26/2017 Inactive Valtrex 1 gram tablet RxNorm: 995039 1 Tablet(s) PO TID 01/13/2017 01/19/2017 Inactive Vistaril 25 mg capsule RxNorm: 464222 1 Capsule(s) PO TID as needed for anxiet y 01/13/2017 03/27/2017 In active hydrocodone 10 mg-ac etaminophen 325 mg tablet RxNorm: 825258 1 Tablet(s) PO Q4-6H as needed for pain 01/13/2017 06/17/2017 Inactive Questran 4 gram powd er for susp in a packet RxNorm: 441755 1 Unit(s) PO QD 01/13/2017 09/23/2017 In active acetazolamide 125 mg tablet RxNorm: 155048 1 Tablet(s) PO BID 01/13/2017 02/06/2017 Inactive methotrexate (PF) 20 mg/0.4 mL subcutaneous auto-injector RxNorm: 6838473 Milliliter(s) SQ QW 12/26/2016 01/05/2017 Inactive Compazine 10 mg tablet RxNorm: 917186 1 Tablet(s) PO TID as needed for nausea 12/18/2016 11/04/2017 In active hydrocodone 10 mg-ac etaminophen 325 mg tablet RxNorm: 195603 1 Tablet(s) PO Q4-6H as needed for pain 12/17/2016 01/12/2017 Inactive Questran 4 gram powd er for susp in a packet RxNorm: 732914 1 Unit(s) PO QD 12/17/2016 01/13/2017 In active cyclobenzaprine 5 mg tablet RxNorm: 086388 1 Tablet(s) PO QPM 12/17/2016 02/05/2017 Inactive Questran Light 4 gra m powder for susp in a packet RxNorm: 0196676 1 PO QD 11/29/2016 06/17/2017 In active Zofran ODT 4 mg disi ntegrating tablet RxNorm: 398195 1 Tablet(s) PO Q4H as needed for nausea 11/29/2016 12/17/2016 Inactive methotrexate sodium 2.5 mg tablet RxNorm: 805143 4 Tablet(s) PO week 1 then 5 tablets po week 2 then 6 tablets weekly 11/27/2016 12/25/2016 Inactive warfarin 7.5 mg tablet RxNorm: 228656 1 Tablet(s) PO three times weekly 11/14/2016 03/31/2017 In active warfarin 7.5 mg tablet RxNorm: 840262 1 Tablet(s) PO three times weekly 11/13/2016 11/13/2016 In active Diflucan 150 mg tablet RxNorm: 042982 1 Tablet(s) PO QW as needed 11/05/2016 01/14/2017 Inactive Vistaril 25 mg capsule RxNorm: 329144 1 Capsule(s) PO TID as needed for anxiet y 11/04/2016 11/03/2016 In active Coumadin 5 mg tablet RxNorm: 311344 1 Tablet(s) PO Friday through Friday11/04/2016 06/18/2017 In active acetazolamide 125 mg tablet RxNorm: 468724 1 Tablet(s) PO BID 11/04/2016 01/13/2017 Inactive sumatriptan 100 mg t ablet RxNorm: 957253 1 Tablet(s) PO at hea dache onset. May repeat in 2 hours if headache remains 11/04/2016 11/04/2017 Inactive Vistaril 25 mg capsule RxNorm: 343855 1 Capsule(s) PO TID as needed for anxiet y 11/04/2016 01/12/2017 In active hydrocodone 10 mg-ac etaminophen 325 mg tablet RxNorm: 630238 1 Tablet(s) PO Q4-6H as needed for pain 11/04/2016 12/16/2016 Inactive Coumadin 5 mg tablet RxNorm: 615288 TAKE ONE TABLET BY MOUTH ON SUN., MON., WED., AND FRI., AND TAKE ONE AND ONE-HALF TABLETS TUE., THUR., AND 10/16/2016 10/25/2016 In active Coumadin 5 mg tablet RxNorm: 057665 1 Tablet(s) PO Friday through Friday10/15/2016 11/03/2016 In active hydrocodone 10 mg-ac etaminophen 325 mg tablet RxNorm: 834350 1 Tablet(s) PO Q4-6H as needed for pain 10/14/2016 11/03/2016 Inactive hydrocodone 10 mg-ac etaminophen 325 mg tablet RxNorm: 802277 1 Tablet(s) PO Q4-6H as needed for pain 09/20/2016 10/13/2016 Inactive warfarin 7.5 mg tablet RxNorm: 142301 1 Tablet(s) PO three times weekly 09/20/2016 11/12/2016 In active Diflucan 150 mg tablet RxNorm: 924731 1 Tablet(s) PO QW as needed 08/20/2016 11/04/2016 Inactive acetazolamide 125 mg tablet RxNorm: 210292 1 Tablet(s) PO BID 08/20/2016 11/04/2016 Inactive Diflucan 150 mg tablet RxNorm: 149799 1 Tablet(s) PO QW as needed 08/20/2016 08/19/2016 Inactive Vistaril 25 mg capsule RxNorm: 167194 Capsule(s) TAKE ONE CAPSULE BY MOUTH THR EE TIMES DAILY NEEDED FOR ANXIETY 08/19/2016 11/04/2016 Inactive hydrocodone 10 mg-ac etaminophen 325 mg tablet RxNorm: 261613 1 Tablet(s) PO Q4-6H as needed for pain 08/05/2016 09/19/2016 Inactive Diflucan 150 mg tablet RxNorm: 344254 1 Tablet(s) PO QW as needed 07/19/2016 08/19/2016 Inactive tizanidine 4 mg tablet RxNorm: 183135 1-2 Tablet(s) PO QHS as needed for muscl e spasm and sleep 06/03/2016 06/10/2016 Inactive Questran Light 4 gra m powder for susp in a packet RxNorm: 1707980 1 PO QD 05/14/2016 08/11/2016 In active Macrobid 100 mg capsule RxNorm: 344519 1 Capsule(s) PO BID 04/23/2016 05/02/2016 Inactive mupirocin 2 % topica l ointment RxNorm: 135346 Apply topically to af fected area 2-3 times daily 04/17/2016 07/07/2016 Inactive Vistaril 25 mg capsule RxNorm: 710065 TAKE ONE CAPSULE BY MOUTH THREE TIMES DA LAURIE NEEDED FOR ANXIETY 04/17/2016 11/04/2016 Inactive Diflucan 150 mg tablet RxNorm: 956395 1 Tablet(s) PO QW as needed 04/16/2016 07/18/2016 Inactive cyclobenzaprine 5 mg tablet RxNorm: 056630 TAKE ONE TABLET BY [facility] ONCE DAILY IN THE EVENING 03/25/2016 12/17/2016 Inactive Pyridium 100 mg tablet RxNorm: 0130493 1 Tablet(s) PO TID as needed 03/20/2016 03/19/2016 In active Diflucan 150 mg tablet RxNorm: 337427 1 Tablet(s) PO QW as needed 03/20/2016 04/15/2016 Inactive Pyridium 100 mg tablet RxNorm: 5705230 1 Tablet(s) PO TID as needed 03/20/2016 08/26/2016 In active Diflucan 150 mg tablet RxNorm: 106823 1 Tablet(s) PO QW as needed 03/19/2016 03/19/2016 Inactive Coumadin 7.5 mg tablet RxNorm: 174106 1 Tablet(s) PO QD 03/14/2016 05/12/2016 Inactive acetazolamide 125 mg tablet RxNorm: 862583 1 Tablet(s) PO BID 02/28/2016 08/20/2016 Inactive Coumadin 5 mg tablet RxNorm: 239911 1 TABLET(S) PO QD THREE TIMES A WEEK AND 1 1/2 TAB (7.5MG) FOUR TIMES A WEEK 02/28/2016 03/13/2016 Inactive Questran Light 4 gra m powder for susp in a packet RxNorm: 0679094 1 PO QD 02/13/2016 05/12/2016 In active Diflucan 150 mg tablet RxNorm: 388177 1 Tablet(s) PO QW as needed 01/19/2016 03/11/2016 Inactive Diflucan 150 mg tablet RxNorm: 693725 1 Tablet(s) PO QW as needed 01/18/2016 01/18/2016 Inactive promethazine 25 mg t ablet RxNorm: 928522 1 Tablet(s) PO Q4H as needed for nausea 12/05/2015 12/17/2016 In active Imitrex 100 mg tablet RxNorm: 539757 1 Tablet(s) PO at headache onset and may repeat in 2 hours if needed 12/05/2015 03/31/2017 Inactive Diflucan 150 mg tablet RxNorm: 686433 1 Tablet(s) PO QW as needed 11/24/2015 01/17/2016 Inactive Diflucan 150 mg tablet RxNorm: 572283 1 Tablet(s) PO QW as needed 11/21/2015 11/23/2015 Inactive Coumadin 5 mg tablet RxNorm: 735078 1 Tablet(s) PO QD three times a week and 1 1/2 tab (7.5mg) four times a week 11/13/2015 02/01/2016 Inactive Questran Light 4 gra m powder for susp in a packet RxNorm: 490182 1 PO QD 11/13/2015 02/10/2016 In active acetazolamide 125 mg tablet RxNorm: 990296 1 Tablet(s) PO BID 11/13/2015 02/10/2016 Inactive amoxicillin 875 mg t ablet RxNorm: 838950 1 Tablet(s) PO BID 11/09/2015 11/18/2015 Inactive Coumadin 7.5 mg tablet RxNorm: 202885 1 Tablet(s) PO on and 10/26/2015 10/25/2015 In active Coumadin 7.5 mg tablet RxNorm: 738821 1 Tablet(s) PO on and 10/26/2015 11/12/2015 In active Coumadin 5 mg tablet RxNorm: 684367 1 Tablet(s) PO Friday, Friday, Friday and Friday. 1.5 tablets Friday, and Friday. 10/26/2015 10/25/2015 Inactive Coumadin 5 mg tablet RxNorm: 610945 1 Tablet(s) PO Friday, Friday, Friday , and Friday. Take 1 1/2 on Friday, and Friday10/26/2015 11/12/2015 Inactive Coumadin 7.5 mg tablet RxNorm: 415209 1 Tablet(s) PO on and 10/26/2015 10/26/2015 In active Coumadin 5 mg tablet RxNorm: 023010 1 Tablet(s) PO Friday, Friday, Friday and Friday. 1.5 tablets Friday, and Friday. 10/26/2015 02/14/2016 Inactive Vistaril 25 mg capsule RxNorm: 759145 1 Capsule(s) PO TID as needed for anxiet y 10/10/2015 04/06/2016 In active cyclobenzaprine 5 mg tablet RxNorm: 521541 1 Tablet(s) PO QPM 10/10/2015 03/24/2016 Inactive Vistaril 25 mg capsule RxNorm: 873183 1 Capsule(s) PO TID as needed for anxiet y 10/10/2015 10/09/2015 In active cyclobenzaprine 5 mg tablet RxNorm: 052258 1 Tablet(s) PO QPM 10/10/2015 10/09/2015 Inactive Coumadin 5 mg tablet RxNorm: 555039 1 Tablet(s) PO Friday, Friday, Friday and Friday. 1.5 tablets Friday, and Friday. 10/02/2015 10/01/2015 Inactive Coumadin 5 mg tablet RxNorm: 706250 1 Tablet(s) PO Friday, Friday, Friday and Friday. 1.5 tablets Friday, and Friday. 10/02/2015 10/25/2015 Inactive amoxicillin 500 mg t ablet RxNorm: 445617 1 Tablet(s) PO TID 10/02/2015 10/11/2015 Inactive hydrocodone 10 mg-ac etaminophen 325 mg tablet RxNorm: 149480 1 Tablet(s) PO Q4-6H as needed for pain 10/02/2015 08/04/2016 Inactive Diflucan 150 mg tablet RxNorm: 746004 1 Tablet(s) PO QW as needed 10/02/2015 10/01/2015 Inactive amoxicillin 500 mg t ablet RxNorm: 027819 1 Tablet(s) PO TID 10/02/2015 10/01/2015 Inactive Diflucan 150 mg tablet RxNorm: 410571 1 Tablet(s) PO QW as needed 10/02/2015 10/09/2015 Inactive Coumadin 5 mg tablet RxNorm: 607607 1 Tablet(s) PO Mon.,Wed.,Fri., Sat. and Sun. 09/14/2015 10/01/2015 Inactive acetazolamide 125 mg tablet RxNorm: 065185 1 Tablet(s) PO BID 09/14/2015 11/12/2015 Inactive hydrocodone 10 mg-ac etaminophen 325 mg tablet RxNorm: 307488 1 Tablet(s) PO Q4-6H as needed for pain 09/01/2015 10/01/2015 Inactive Vistaril 25 mg capsule RxNorm: 673290 1 Capsule(s) PO TID as needed for anxiet y 08/24/2015 09/22/2015 In active baclofen 10 mg tablet RxNorm: 669113 1/2 Tablet(s) PO QAM and 1 tablet at bed time 07/27/2015 10/09/2015 Inactive Vistaril 25 mg capsule RxNorm: 157778 1 Capsule(s) PO BID 07/24/2015 08/22/2015 Inactive Savella 12.5 mg (5)- 25 mg(8)-50mg(42) tablets in a dose pack RxNorm: 686267 Tablet(s) PO as directed 07/10/2015 07/26/2015 Inactive hydrocodone 10 mg-ac etaminophen 325 mg tablet RxNorm: 868122 1 Tablet(s) PO Q6H as needed for pain 06/29/2015 08/10/2015 Inactive Coumadin 7.5 mg tablet RxNorm: 864656 1 Tablet(s) PO on and 06/21/2015 10/25/2015 In active Vistaril 25 mg capsule RxNorm: 491073 1 Capsule(s) PO BID 06/20/2015 07/24/2015 Inactive Cymbalta 30 mg capsu le,delayed release RxNorm: 713826 1 Capsule(s) PO QD 06/08/2015 07/09/2015 In active Coumadin 5 mg tablet RxNorm: 759472 1 Tablet(s) PO Mon.,Wed.,Fri., Sat. and Sun. 06/08/2015 07/07/2015 Inactive Coumadin 5 mg tablet RxNorm: 568781 1 Tablet(s) PO Mon.,Wed.,Fri., Sat. and Sun. 05/24/2015 06/07/2015 Inactive Coumadin 7.5 mg tablet RxNorm: 923558 1 Tablet(s) PO on and 05/24/2015 06/20/2015 In active Coumadin 7.5 mg tablet RxNorm: 300515 1 Tablet(s) PO on Friday No Start Date Active Vitamin B12 1000mcg Tablet RxNorm: 1/2 Tablet(s) PO QD No Start Date Active Bystolic 10 mg tablet RxNorm: 418550 3 Tablet(s) PO QAM No Start Date Active Vitamin D3 5,000 uni t tablet RxNorm: 546142 1 Tablet(s) PO QD No Start Date Active Bystolic 5 mg tablet RxNorm: 186383 1 Tablet(s) PO NOON No Start Date Active sumatriptan 100 mg t ablet RxNorm: 430039 1 Tablet(s) PO at hea dache onset. May repeat in 2 hours if headache remains No Start Date 11/03/2016 Inactive warfarin 7.5 mg tablet RxNorm: 363396 1 Tablet(s) PO three times weekly No Start Date 09/19/2016 Inactive ondansetron HCl 4 mg tablet RxNorm: 942507 1 Tablet(s) PO Q4H as needed for nausea No Start Date 02/23/2018 Inactive Imitrex 100 mg tablet RxNorm: 190728 1 Tablet(s) PO at headache onset and may repeat in 2 hours if needed No Start Date 12/04/2015 Inactive Vitamin B12 1000mcg Tablet RxNorm: 1/2 Tablet(s) PO on , T hurs, Sat and Sun and 1 tab all other days No Start Date 04/01/2018 Inactive warfarin 5 mg tablet RxNorm: 422008 1 Tablet(s) PO QD No Start Date 02/16/2019 Inactive baclofen 10 mg tablet RxNorm: 642174 1/2 Tablet(s) PO QAM and 1 tablet at bed time No Start Date 07/26/2015 Inactive tizanidine 4 mg tablet RxNorm: 802602 1-2 Tablet(s) PO QHS as needed for muscl e spasm and sleep No Start Date 06/02/2016 Inactive Flexeril 5 mg tablet RxNorm: 090286 1 Tablet(s) PO QD No Start Date 10/09/2015 Inactive methotrexate (PF) 20 mg/0.4 mL subcutaneous auto-injector RxNorm: 3127024 SQ QW No Start Date 12/25/2016 Inactive Bystolic 5 mg tablet RxNorm: 370890 1 Tablet(s) PO as needed No Start Date 03/15/2018 Inactive Questran Light 4 gra m powder for susp in a packet RxNorm: 020297 1 PO QD No Start Date 11/12/2015 Inactive Bystolic 10 mg tablet RxNorm: 357894 1 Tablet(s) PO QAM No Start Date 11/04/2017 Inactive warfarin 5 mg tablet RxNorm: 275678 1 Tablet(s) PO Fri Sun No Start Date 06/17/2017 Inactive hydrocodone 10 mg-ac etaminophen 325 mg tablet RxNorm: 334567 1 Tablet(s) PO 4-6hou rs as needed for pain No Start Date 08/31/2015 Inactive cyclobenzaprine 5 mg tablet RxNorm: 111555 1 Tablet(s) PO QPM No Start Date 12/16/2016 Inactive Lovenox 100 mg/mL carmona bcutaneous syringe RxNorm: 776256 1 Milliliter(s) SQ QD No Start Date 06/07/2015 Inactive Levsin 0.125 mg tablet RxNorm: 9097207 1 Tablet(s) PO QID as needed for spasm No Start Date 02/24/2017 Inactive Savella 12.5 mg (5)- 25 mg(8)-50mg(42) tablets in a dose pack RxNorm: 798024 Tablet(s) PO as directed No Start Date 07/09/2015 Inactive Coumadin 10 mg tablet RxNorm: 889545 1 Tablet(s) PO QD No Start Date 2015 Inactive tramadol 50 mg tablet RxNorm: 622012 1 Tablet(s) PO TID as needed for pain No Start Date 03/31/2017 Inactive BuSpar 5 mg tablet RxNorm: 399420 1 Tablet(s) PO BID No Start Date 02/02/2017 Inactive Vistaril 25 mg capsule RxNorm: 684398 1 Capsule(s) PO BID No Start Date 06/19/2015 Inactive Tessalon Perles 100 mg capsule RxNorm: 446399 1 Capsule(s) PO TID a s needed for cough No Start Date 01/19/2019 Inactive promethazine 12.5 mg tablet RxNorm: 047513 1 Tablet(s) PO Q6H as needed No Start Date 04/22/2018 Inactive Coumadin 7.5 mg tablet RxNorm: 701606 1 Tablet(s) PO Fri and Friday No Start Date 03/13/2016 Inactive Imitrex 50 mg tablet RxNorm: 463169 1 Tablet(s) PO at headache. repeat in 2 hours if no relief. no more than 2 tabs per day No Start Date 12/25/2017 Inactive acetazolamide 125 mg tablet RxNorm: 827826 1 Tablet(s) PO BID No Start Date 09/13/2015 Inactive methotrexate (PF) 12 .5 mg/0.4 mL subcutaneous auto-injector RxNorm: 4773469 1 Milliliter(s) SQ QW No Start Date 03/31/2017 Inactive Bystolic 10 mg tablet RxNorm: 637541 1 Tablet(s) PO QAM No Start Date 03/25/2018 Inactive Zithromax Z-Juan Francisco 250 mg tablet RxNorm: 843760 Tablet(s) PO As Direc liane No Start Date 05/11/2017 Inactive Bystolic 20 mg tablet RxNorm: 092729 1 Tablet(s) PO QD No Start Date 03/15/2018 Inactive Questran 4 gram powd er for susp in a packet RxNorm: 374719 1 Unit(s) PO QD No Start Date 12/16/2016 Inactive Vitamin D3 1,000 uni t tablet RxNorm: 025109 1 Tablet(s) PO QD No Start Date 04/01/2018 Inactive Coumadin 5 mg tablet RxNorm: 752864 1 Tablet(s) PO Friday through Friday No Start Date 03/13/2016 Inactive warfarin 5 mg tablet RxNorm: 873245 1 Tablet(s) PO four days per week No Start Date 04/01/2018 Inactive ProAir HFA 90 mcg/ac tuation aerosol inhaler RxNorm: 984882 2 Puff(s) INH Q4H as needed No Start Date 01/19/2019 Inactive Bystolic 5 mg tablet RxNorm: 962119 1 Tablet(s) PO QHS No Start Date 03/25/2018 Inactive Compazine 10 mg tablet RxNorm: 225318 1 Tablet(s) PO TID as needed for nausea No Start Date 12/17/2016 Inactive Pyridium 200 mg tablet RxNorm: 9868356 1 Tablet(s) PO TID for bladder spasms No Start Date 02/26/2017 Inactive hydrocodone 10 mg-ac etaminophen 325 mg tablet RxNorm: 781492 1 Tablet(s) PO as nee ded No Start Date 06/28/2015 Inactive warfarin 7.5 mg tablet RxNorm: 783901 1 Tablet(s) PO on Friday and No Start Date 04/01/2018 Inactive promethazine 25 mg t ablet RxNorm: 490114 1 Tablet(s) PO Q4H as needed for nausea No Start Date 12/04/2015 Inactive Lovenox 30 mg/0.3 mL subcutaneous syringe RxNorm: 179687 1 Milliliter(s) SQ QD No Start Date [...] and perineal pain ICD-10: R10 .2 ICD-9: [id number] 02/10/2017 Hematuria, unspecified ICD-10: R31.9 ICD-9: 599.70 [...] lab draw 02/10/2017 neck pain 02/05/2017 Alivia pugh was just started on Buspar follow up [...] Code Result Date ANTI STREPTOLYSIN O TITER(ASO) 71546 ASO Titr 110 IU/mL 9 MYCOPLASMA ANTIBODY, IFA [id number] Mycoplas Ab IgG 1:64 01/20/2019 MYCOPLASMA ANTIBODY, IFA [id number] Mycoplas Ab IgM <1:10 01/20/2019 MYCOPLASMA ANTIBODY, IFA 95982U3 Mycoplasma Intp See Below 01/20/2019 LEGIONELLA [id number] Reynaldo parkinsona Ab <1:128 01/20/2019 HEPATIC FUNCTION PANEL A 31593 Total Protein 6.3 g/dL 01/19/2019 HEPATIC FUNCTION PANEL A 77784 AST 16 U/L 01/19/2019 HEPATIC FUNCTION PANEL A 93731 ALK PHOS 52 U/L 01/19/2019 HEPATIC FUNCTION PANEL A 15435 Bili Total 0.2 mg/dL 01/19/2019 HEPATIC FUNCTION PANEL A 36978 ALT 20 U/L 01/19/2019 HEPATIC FUNCTION PANEL A 49055 ALBUMIN 4.3 g/dL 01/19/2019 HEPATIC FUNCTION PANEL A 04911 Bili Direct 0.1 mg/dL 01/19/2019 PT 5802158 PT 27.5 Seconds 01/19/2019 PT 5799265 INR 2.6 01/19/2019 COMPLETE BLOOD COUNT 8097791 WBC 11.1 10e9/L 01/19/2019 COMPLETE BLOOD COUNT 8932733 RBC 4.14 10e12/L 9 COMPLETE BLOOD COUNT 8260625 HEMOGLOBIN 13.9 g/dL 01/19/2019 COMPLETE BLOOD COUNT 1791635 HEMATOCRIT 40.7 % 01/19/2019 COMPLETE BLOOD COUNT 0695611 MCV 98.3 fL 01/19/2019 COMPLETE BLOOD COUNT 1995943 MCH 33.6 pg 01/19/2019 COMPLETE BLOOD COUNT 6412560 MCHC 34.2 g/dL 01/19/2019 COMPLETE BLOOD COUNT 1886382 PLATELET COUNT 334 10e9/L 01/19/2019 COMPLETE BLOOD COUNT 4946110 Mean Plt Volume 8.9 fL 01/19/2019 COMPLETE BLOOD COUNT 8423376 Neut Auto 60.2 % 01/19/2019 COMPLETE BLOOD COUNT 8876940 Lymph Auto 32.5 % 01/19/2019 COMPLETE BLOOD COUNT 5377833 [place] Auto 6.1 % 01/19/2019 COMPLETE BLOOD COUNT 4236990 RDW 12.5 % 01/19/2019 COMPLETE BLOOD COUNT 7786851 Eos Auto 1.0 % 01/19/2019 COMPLETE BLOOD COUNT 3067035 Baso Auto 0.2 % 01/19/2019 COMPLETE BLOOD COUNT 8825977 Neutrophil Abs 6.68 10e9/L 01/19/2019 COMPLETE BLOOD COUNT 4447323 Lymphocyte Abs 3.61 10e9/L 01/19/2019 COMPLETE BLOOD COUNT 3256777 Monocyte Abs 0.68 10e9/L 01/19/2019 COMPLETE BLOOD COUNT 4929364 Eosinophil Abs 0.11 10e9/L 01/19/2019 COMPLETE BLOOD COUNT 5795419 RDW-SD 43.4 fL 01/19/2019 COMPLETE BLOOD COUNT 3064082 Basophil Abs 0.02 10e9/L 01/19/2019 COMPLETE BLOOD COUNT 3624257 WBC 7.4 10e9/L 12/18/2018 COMPLETE BLOOD COUNT 8048091 RBC 4.32 10e12/L 9 COMPLETE BLOOD COUNT 8136946 HEMOGLOBIN 14.2 g/dL 12/18/2018 COMPLETE BLOOD COUNT 3319486 HEMATOCRIT 42.0 % 12/18/2018 COMPLETE BLOOD COUNT 5525710 MCV 97.2 fL 12/18/2018 COMPLETE BLOOD COUNT 7018378 MCH 32.9 pg 12/18/2018 COMPLETE BLOOD COUNT 7962450 MCHC 33.8 g/dL 12/18/2018 COMPLETE BLOOD COUNT 2683068 PLATELET COUNT 273 10e9/L 12/18/2018 COMPLETE BLOOD COUNT 8536845 Mean Plt Volume 9.4 fL 12/18/2018 COMPLETE BLOOD COUNT 7783028 Neut Auto 57.7 % 12/18/2018 COMPLETE BLOOD COUNT 8114473 Lymph Auto 34.8 % 12/18/2018 COMPLETE BLOOD COUNT 6809810 [place] Auto 6.4 % 12/18/2018 COMPLETE BLOOD COUNT 8353637 RDW 12.6 % 12/18/2018 COMPLETE BLOOD COUNT 5667797 Eos Auto 0.8 % 12/18/2018 COMPLETE BLOOD COUNT 2642145 Baso Auto 0.3 % 12/18/2018 COMPLETE BLOOD COUNT 0254997 Neutrophil Abs 4.27 10e9/L 12/18/2018 COMPLETE BLOOD COUNT 1251700 Lymphocyte Abs 2.58 10e9/L 12/18/2018 COMPLETE BLOOD COUNT 2454017 Monocyte Abs 0.47 10e9/L 12/18/2018 COMPLETE BLOOD COUNT 5561418 Eosinophil Abs 0.06 10e9/L 12/18/2018 COMPLETE BLOOD COUNT 9220308 RDW-SD 43.8 fL 12/18/2018 COMPLETE BLOOD COUNT 8207779 Basophil Abs 0.02 10e9/L 12/18/2018 GFR CALC 4225350 GFR Non Afr Amr >60 mL/min 12/18/2018 GFR CALC 7758679 GFR Afr Amr >60 mL/min 12/18/2018 COMPREHENSIVE METABOLIC 02158 AST 33 U/L 12/18/2018 COMPREHENSIVE METABOLIC 44183 ALT 60 U/L 12/18/2018 COMPREHENSIVE METABOLIC 31957 BUN 9 mg/dL 12/18/2018 COMPREHENSIVE METABOLIC 71762 ALBUMIN 4.3 g/dL 12/18/2018 COMPREHENSIVE METABOLIC 49313 CHLORIDE 104 mmol/L 12/18/2018 COMPREHENSIVE METABOLIC 55396 Bili Total 0.3 mg/dL 12/18/2018 COMPREHENSIVE METABOLIC 66637 ALK PHOS 63 U/L 12/18/2018 COMPREHENSIVE METABOLIC 66587 SODIUM 139 mmol/L 12/18/2018 COMPREHENSIVE METABOLIC 77468 CREATININE 0.55 mg/dL 12/18/2018 COMPREHENSIVE METABOLIC 29122 CALCIUM 9.0 mg/dL 12/18/2018 COMPREHENSIVE METABOLIC 71118 POTASSIUM 3.9 mmol/L 12/18/2018 COMPREHENSIVE METABOLIC 52108 Total Protein 6.4 g/dL 12/18/2018 COMPREHENSIVE METABOLIC 34898 Glucose 83 mg/dL 12/18/2018 COMPREHENSIVE METABOLIC 19998 Bicarbonate 27 mmol/L 12/18/2018 COMPREHENSIVE METABOLIC 87698 AGAP 8 mmol/L 12/18/2018 ERYTHROCYTE SEDIMENTATION RATE 34947 Sed Rate 17 mm/hr 12/04/2018 MEAN GLUC 9621092 Calc M zach Gluc 108 mg/dL 12/03/2018 VITAMIN B 12 37173 VITAM IN B12 329 pg/mL 12/03/2018 COMPREHENSIVE METABOLIC 20691 AST 18 U/L 12/03/2018 COMPREHENSIVE METABOLIC 80324 ALT 21 U/L 12/03/2018 COMPREHENSIVE METABOLIC 53290 BUN 11 mg/dL 12/03/2018 COMPREHENSIVE METABOLIC 55159 ALBUMIN 4.5 g/dL 12/03/2018 COMPREHENSIVE METABOLIC 26833 CHLORIDE 106 mmol/L 12/03/2018 COMPREHENSIVE METABOLIC 67012 Bili Total 0.4 mg/dL 12/03/2018 COMPREHENSIVE METABOLIC 75794 ALK PHOS 49 U/L 12/03/2018 COMPREHENSIVE METABOLIC 26182 SODIUM 138 mmol/L 12/03/2018 COMPREHENSIVE METABOLIC 73779 CREATININE 0.61 mg/dL 12/03/2018 COMPREHENSIVE METABOLIC 27837 CALCIUM 9.2 mg/dL 12/03/2018 COMPREHENSIVE METABOLIC 98150 POTASSIUM 3.7 mmol/L 12/03/2018 COMPREHENSIVE METABOLIC 75478 Total Protein 6.8 g/dL 12/03/2018 COMPREHENSIVE METABOLIC 61250 Glucose 94 mg/dL 12/03/2018 COMPREHENSIVE METABOLIC 48922 Bicarbonate 25 mmol/L 12/03/2018 COMPREHENSIVE METABOLIC 21700 AGAP 7 mmol/L 12/03/2018 FREE T4 84125 T4 Free 0.96 ng/dL 12/03/2018 ASSAY TRIIODOTHYRONINE (T3) 03082 T3 Total 1.02 ng/mL 12/03/2018 GFR CALC 9522621 GFR Non Afr Amr >60 mL/min 12/03/2018 GFR CALC 0394061 GFR Afr Amr >60 mL/min 12/03/2018 GLYCOSYLATED HEMOGLOBIN TEST 14847 Hgb A1c 88246-5 5.4 % 12/03/2018 VITAMIN D TOTAL (25 HYDROXY) 73431 Vitamin D 25 OH 11.1 ng/mL 12/03/2018 IRON 60330 Iron 106 ug/dL 12/03/2018 THYROID STIMULATING HORMONE 35345 TSH 0.978 uIU/mL 9 COMPLETE BLOOD COUNT 4136597 WBC 9.4 10e9/L 12/03/2018 COMPLETE BLOOD COUNT 4573619 RBC 4.41 10e12/L 9 COMPLETE BLOOD COUNT 8063866 HEMOGLOBIN 14.5 g/dL 12/03/2018 COMPLETE BLOOD COUNT 6728768 HEMATOCRIT 43.0 % 12/03/2018 COMPLETE BLOOD COUNT 4160724 MCV 97.5 fL 12/03/2018 COMPLETE BLOOD COUNT 8992960 MCH 32.9 pg 12/03/2018 COMPLETE BLOOD COUNT 6121198 MCHC 33.7 g/dL 12/03/2018 COMPLETE BLOOD COUNT 9644541 PLATELET COUNT 336 10e9/L 12/03/2018 COMPLETE BLOOD COUNT 1550259 Mean Plt Volume 9.1 fL 12/03/2018 COMPLETE BLOOD COUNT 6253036 Neut Auto 56.4 % 12/03/2018 COMPLETE BLOOD COUNT 4285108 Lymph Auto 35.6 % 12/03/2018 COMPLETE BLOOD COUNT 0629971 [place] Auto 6.8 % 12/03/2018 COMPLETE BLOOD COUNT 0971342 RDW 12.6 % 12/03/2018 COMPLETE BLOOD COUNT 9843059 Eos Auto 1.0 % 12/03/2018 COMPLETE BLOOD COUNT 1568289 Baso Auto 0.2 % 12/03/2018 COMPLETE BLOOD COUNT 6479404 Neutrophil Abs 5.30 10e9/L 12/03/2018 COMPLETE BLOOD COUNT 1516449 Lymphocyte Abs 3.35 10e9/L 12/03/2018 COMPLETE BLOOD COUNT 5638632 Monocyte Abs 0.64 10e9/L 12/03/2018 COMPLETE BLOOD COUNT 3982470 Eosinophil Abs 0.09 10e9/L 12/03/2018 COMPLETE BLOOD COUNT 8902494 RDW-SD 44.3 fL 12/03/2018 COMPLETE BLOOD COUNT 2151837 Basophil Abs 0.02 10e9/L 12/03/2018 FERRITIN 37769 FERRITIN 87.8 ng/mL 12/03/2018 PT 0373583 PT 23.1 Seconds 11/30/2018 PT 6565470 INR 2.0 11/30/2018 ANTI STREPTOLYSIN O TITER(ASO) 67048 ASO Titr 117 IU/mL 9 COMPLETE BLOOD COUNT 1365245 WBC 10.7 10e9/L 11/11/2018 COMPLETE BLOOD COUNT 8278368 RBC 4.42 10e12/L 9 COMPLETE BLOOD COUNT 0955270 HEMOGLOBIN 14.5 g/dL 11/11/2018 COMPLETE BLOOD COUNT 2806862 HEMATOCRIT 43.1 % 11/11/2018 COMPLETE BLOOD COUNT 2161167 MCV 97.5 fL 11/11/2018 COMPLETE BLOOD COUNT 0296957 MCH 32.8 pg 11/11/2018 COMPLETE BLOOD COUNT 3040213 MCHC 33.6 g/dL 11/11/2018 COMPLETE BLOOD COUNT 2715233 PLATELET COUNT 324 10e9/L 11/11/2018 COMPLETE BLOOD COUNT 1306864 Mean Plt Volume 9.2 fL 11/11/2018 COMPLETE BLOOD COUNT 1236674 Neut Auto 62.3 % 11/11/2018 COMPLETE BLOOD COUNT 5799504 Lymph Auto 30.8 % 11/11/2018 COMPLETE BLOOD COUNT 7081909 [place] Auto 6.1 % 11/11/2018 COMPLETE BLOOD COUNT 4696575 RDW 12.7 % 11/11/2018 COMPLETE BLOOD COUNT 6007291 Eos Auto 0.7 % 11/11/2018 COMPLETE BLOOD COUNT 2394719 Baso Auto 0.1 % 11/11/2018 COMPLETE BLOOD COUNT 7741658 Neutrophil Abs 6.67 10e9/L 11/11/2018 COMPLETE BLOOD COUNT 3386479 Lymphocyte Abs 3.30 10e9/L 11/11/2018 COMPLETE BLOOD COUNT 6000470 Monocyte Abs 0.65 10e9/L 11/11/2018 COMPLETE BLOOD COUNT 1171872 Eosinophil Abs 0.07 10e9/L 11/11/2018 COMPLETE BLOOD COUNT 7392652 RDW-SD 44.3 fL 11/11/2018 COMPLETE BLOOD COUNT 1698175 Basophil Abs 0.01 10e9/L 11/11/2018 PT 3355330 PT 23.4 Seconds 10/27/2018 PT 7337996 INR 2.0 10/27/2018 COMPLETE BLOOD COUNT 6438135 WBC 8.1 10e9/L 09/25/2018 COMPLETE BLOOD COUNT 8667930 RBC 4.37 10e12/L 9 COMPLETE BLOOD COUNT 8973735 HEMOGLOBIN 14.5 g/dL 09/25/2018 COMPLETE BLOOD COUNT 7225192 HEMATOCRIT 42.1 % 09/25/2018 COMPLETE BLOOD COUNT 1823404 MCV 96.3 fL 09/25/2018 COMPLETE BLOOD COUNT 3878643 MCH 33.2 pg 09/25/2018 COMPLETE BLOOD COUNT 8751173 MCHC 34.4 g/dL 09/25/2018 COMPLETE BLOOD COUNT 7165057 PLATELET COUNT 313 10e9/L 09/25/2018 COMPLETE BLOOD COUNT 8150278 Mean Plt Volume 9.2 fL 09/25/2018 COMPLETE BLOOD COUNT 9220315 Neut Auto 57.4 % 09/25/2018 COMPLETE BLOOD COUNT 2376211 Lymph Auto 35.0 % 09/25/2018 COMPLETE BLOOD COUNT 2160327 [place] Auto 6.3 % 09/25/2018 COMPLETE BLOOD COUNT 0605492 RDW 12.6 % 09/25/2018 COMPLETE BLOOD COUNT 8305581 Eos Auto 1.1 % 09/25/2018 COMPLETE BLOOD COUNT 4131478 Baso Auto 0.2 % 09/25/2018 COMPLETE BLOOD COUNT 6078706 Neutrophil Abs 4.65 10e9/L 09/25/2018 COMPLETE BLOOD COUNT 3442333 Lymphocyte Abs 2.84 10e9/L 09/25/2018 COMPLETE BLOOD COUNT 3859516 Monocyte Abs 0.51 10e9/L 09/25/2018 COMPLETE BLOOD COUNT 0167240 Eosinophil Abs 0.09 10e9/L 09/25/2018 COMPLETE BLOOD COUNT 4069577 RDW-SD 43.0 fL 09/25/2018 COMPLETE BLOOD COUNT 6124743 Basophil Abs 0.02 10e9/L 09/25/2018 COMPREHENSIVE METABOLIC 27747 AST 15 U/L 09/25/2018 COMPREHENSIVE METABOLIC 70248 ALT 20 U/L 09/25/2018 COMPREHENSIVE METABOLIC 71031 BUN 9 mg/dL 09/25/2018 COMPREHENSIVE METABOLIC 98308 ALBUMIN 4.3 g/dL 09/25/2018 COMPREHENSIVE METABOLIC 77074 CHLORIDE 107 mmol/L 09/25/2018 COMPREHENSIVE METABOLIC 87006 Bili Total 0.4 mg/dL 09/25/2018 COMPREHENSIVE METABOLIC 79709 ALK PHOS 51 U/L 09/25/2018 COMPREHENSIVE METABOLIC 25034 SODIUM 139 mmol/L 09/25/2018 COMPREHENSIVE METABOLIC 78761 CREATININE 0.61 mg/dL 09/25/2018 COMPREHENSIVE METABOLIC 39938 CALCIUM 9.1 mg/dL 09/25/2018 COMPREHENSIVE METABOLIC 74987 POTASSIUM 3.7 mmol/L 09/25/2018 COMPREHENSIVE METABOLIC 95975 Total Protein 6.3 g/dL 09/25/2018 COMPREHENSIVE METABOLIC 18382 Glucose 92 mg/dL 09/25/2018 COMPREHENSIVE METABOLIC 99898 Bicarbonate 24 mmol/L 09/25/2018 COMPREHENSIVE METABOLIC 06186 AGAP 8 mmol/L 09/25/2018 PT 2212572 PT 25.0 Seconds 09/25/2018 PT [id number] INR 2.2 09/25/2018 GFR CALC 2013904 GFR Non Afr Amr >60 mL/min 09/25/2018 GFR CALC 4082987 GFR Afr Amr >60 mL/min 09/25/2018 PT 8301331 PT 25.7 Seconds 05/12/2018 PT [id number] INR 2.3 05/12/2018 PT 8515565 PT TNP:Improper Specimen 04/30/2018 PT [id number] INR TNP:Improper Specimen 04/30/2018 PT 4552283 PT 26.3 Seconds 02/05/2018 PT [id number] INR 2.4 02/05/2018 ANTI STREPTOLYSIN O TITER(ASO) 07411 ASO Titr 118 IU/mL 8 VITAMIN B 12 39865 VITAM IN B12 302 pg/mL 12/02/2017 VITAMIN D TOTAL (25 HYDROXY) 75740 Vitamin D 25 OH 27.0 ng/mL 12/02/2017 PT 4820765 PT 17.3 Seconds 12/01/2017 PT 1985551 INR 1.4 12/01/2017 ANTI STREPTOLYSIN O TITER(ASO) 39124 ASO Titr 127 IU/mL 8 ANTI STREPTOLYSIN O TITER(ASO) 65008 ASO Titr 130 IU/mL 8 ANTINUCLEAR ANTIBODY SCREEN 58830 MAGALIE Ab Scr <1:80 10/02/2017 RA FACTOR 45520 RA FACTOR <20 IU/mL 10/02/2017 RA FACTOR 39125 RA Facto r Intp Negative 10/02/2017 VITAMIN D TOTAL (25 HYDROXY) 90286 Vitamin D 25 OH 18 ng/mL 8 IRON 78475 Iron 70 ug/dL 10/01/2017 VITAMIN B 12 99012 VITAM IN B12 377 pg/mL 10/01/2017 FREE T4 33965 T4 Free 1.31 ng/dL 10/01/2017 URIC ACID 85638 URIC ACID 3.9 mg/dL 10/01/2017 FERRITIN 34591 FERRITIN 68.0 ng/mL 10/01/2017 THYROID STIMULATING HORMONE 44253 TSH 1.401 uIU/mL 8 GLYCOSYLATED HEMOGLOBIN TEST 10163 Hgb A1c 84126-3 5.4 % 10/01/2017 FOLIC ACID 92382 Folate >24.0 ng/mL 10/01/2017 ASSAY TRIIODOTHYRONINE (T3) 48866 T3 Total 1.0 ng/mL 10/01/2017 ERYTHROCYTE SEDIMENTATION RATE 82136 Sed Rate 5 mm/hr 10/01/2017 MEAN GLUC 2138637 Calc M zach Gluc 108 mg/dL 10/01/2017 PT 0090814 PT 18.6 Seconds 08/07/2017 PT 6935029 INR 1.5 08/07/2017 COMPREHENSIVE METABOLIC 76905 AST 21 U/L 08/07/2017 COMPREHENSIVE METABOLIC 56420 ALT 37 U/L 08/07/2017 COMPREHENSIVE METABOLIC 46346 BUN 14 mg/dL 08/07/2017 COMPREHENSIVE METABOLIC 93958 ALBUMIN 4.5 g/dL 08/07/2017 COMPREHENSIVE METABOLIC 55911 CHLORIDE 104 mmol/L 08/07/2017 COMPREHENSIVE METABOLIC 87688 Bili Total 0.3 mg/dL 08/07/2017 COMPREHENSIVE METABOLIC 84491 ALK PHOS 55 U/L 08/07/2017 COMPREHENSIVE METABOLIC 67750 SODIUM 139 mmol/L 08/07/2017 COMPREHENSIVE METABOLIC 62656 CREATININE 0.77 mg/dL 08/07/2017 COMPREHENSIVE METABOLIC 07564 CALCIUM 9.2 mg/dL 08/07/2017 COMPREHENSIVE METABOLIC 65355 POTASSIUM 3.7 mmol/L 08/07/2017 COMPREHENSIVE METABOLIC 37970 Total Protein 6.5 g/dL 08/07/2017 COMPREHENSIVE METABOLIC 57494 Glucose 101 mg/dL 08/07/2017 COMPREHENSIVE METABOLIC 58146 Bicarbonate 25 mmol/L 08/07/2017 COMPREHENSIVE METABOLIC 15904 AGAP 10 mmol/L 08/07/2017 COMPLETE BLOOD COUNT 4511499 WBC 9.4 10e9/L 08/07/2017 COMPLETE BLOOD COUNT 8024039 RBC 4.38 10e12/L 8 COMPLETE BLOOD COUNT 2251513 HEMOGLOBIN 14.5 g/dL 08/07/2017 COMPLETE BLOOD COUNT 6256309 HEMATOCRIT 42.7 % 08/07/2017 COMPLETE BLOOD COUNT 0569531 MCV 97.5 fL 08/07/2017 COMPLETE BLOOD COUNT 5112765 MCH 33.1 pg 08/07/2017 COMPLETE BLOOD COUNT 2860146 MCHC 34.0 g/dL 08/07/2017 COMPLETE BLOOD COUNT 9786036 PLATELET COUNT 313 10e9/L 08/07/2017 COMPLETE BLOOD COUNT 7842927 Mean Plt Volume 8.6 fL 08/07/2017 COMPLETE BLOOD COUNT 2537816 Neut Auto 51.6 % 08/07/2017 COMPLETE BLOOD COUNT 9408633 Lymph Auto 40.0 % 08/07/2017 COMPLETE BLOOD COUNT 0521059 [place] Auto 6.8 % 08/07/2017 COMPLETE BLOOD COUNT 7541865 RDW 12.9 % 08/07/2017 COMPLETE BLOOD COUNT 7635924 Eos Auto 1.4 % 08/07/2017 COMPLETE BLOOD COUNT 2882453 Baso Auto 0.2 % 08/07/2017 COMPLETE BLOOD COUNT 2851744 Neutrophil Abs 4.85 10e9/L 08/07/2017 COMPLETE BLOOD COUNT 8043490 Lymphocyte Abs 3.76 10e9/L 08/07/2017 COMPLETE BLOOD COUNT 0965932 Monocyte Abs 0.64 10e9/L 08/07/2017 COMPLETE BLOOD COUNT 4557934 Eosinophil Abs 0.13 10e9/L 08/07/2017 COMPLETE BLOOD COUNT 1902684 RDW-SD 45.1 fL 08/07/2017 COMPLETE BLOOD COUNT 1005231 Basophil Abs 0.02 10e9/L 08/07/2017 GFR CALC 7575187 GFR Non Afr Amr >60 mL/min 08/07/2017 GFR CALC 9064105 GFR Afr Amr >60 mL/min 08/07/2017 COMPLETE BLOOD COUNT 9889165 WBC 9.2 10e9/L 07/15/2017 COMPLETE BLOOD COUNT 4808189 RBC 4.70 10e12/L 8 COMPLETE BLOOD COUNT 9042690 HEMOGLOBIN 15.4 g/dL 07/15/2017 COMPLETE BLOOD COUNT 4014820 HEMATOCRIT 46.2 % 07/15/2017 COMPLETE BLOOD COUNT 8843060 MCV 98.3 fL 07/15/2017 COMPLETE BLOOD COUNT 6431146 MCH 32.8 pg 07/15/2017 COMPLETE BLOOD COUNT 4093389 MCHC 33.3 g/dL 07/15/2017 COMPLETE BLOOD COUNT 5328635 PLATELET COUNT 348 10e9/L 07/15/2017 COMPLETE BLOOD COUNT 1119186 Mean Plt Volume 8.9 fL 07/15/2017 COMPLETE BLOOD COUNT 1731722 Neut Auto 60.6 % 07/15/2017 COMPLETE BLOOD COUNT 6300629 Lymph Auto 30.9 % 07/15/2017 COMPLETE BLOOD COUNT 9825920 [place] Auto 7.1 % 07/15/2017 COMPLETE BLOOD COUNT 8824493 RDW 13.1 % 07/15/2017 COMPLETE BLOOD COUNT 8604058 Eos Auto 1.2 % 07/15/2017 COMPLETE BLOOD COUNT 9673377 Baso Auto 0.2 % 07/15/2017 COMPLETE BLOOD COUNT 5490058 Neutrophil Abs 5.58 10e9/L 07/15/2017 COMPLETE BLOOD COUNT 4386328 Lymphocyte Abs 2.84 10e9/L 07/15/2017 COMPLETE BLOOD COUNT 5617327 Monocyte Abs 0.65 10e9/L 07/15/2017 COMPLETE BLOOD COUNT 9434593 Eosinophil Abs 0.11 10e9/L 07/15/2017 COMPLETE BLOOD COUNT 8963553 RDW-SD 46.1 fL 07/15/2017 COMPLETE BLOOD COUNT 2890594 Basophil Abs 0.02 10e9/L 07/15/2017 GFR CALC 0858917 GFR Non Afr Amr >60 mL/min 07/15/2017 GFR CALC 9188852 GFR Afr Amr >60 mL/min 07/15/2017 COMPREHENSIVE METABOLIC 71240 AST 16 U/L 07/15/2017 COMPREHENSIVE METABOLIC 04675 ALT 20 U/L 07/15/2017 COMPREHENSIVE METABOLIC 31653 BUN 13 mg/dL 07/15/2017 COMPREHENSIVE METABOLIC 25032 ALBUMIN 4.6 g/dL 07/15/2017 COMPREHENSIVE METABOLIC 49085 CHLORIDE 106 mmol/L 07/15/2017 COMPREHENSIVE METABOLIC 42892 Bili Total 0.3 mg/dL 07/15/2017 COMPREHENSIVE METABOLIC 11545 ALK PHOS 50 U/L 07/15/2017 COMPREHENSIVE METABOLIC 26711 SODIUM 137 mmol/L 07/15/2017 COMPREHENSIVE METABOLIC 85224 CREATININE 0.62 mg/dL 07/15/2017 COMPREHENSIVE METABOLIC 47289 CALCIUM 9.2 mg/dL 07/15/2017 COMPREHENSIVE METABOLIC 97782 POTASSIUM 3.8 mmol/L 07/15/2017 COMPREHENSIVE METABOLIC 73065 Total Protein 6.7 g/dL 07/15/2017 COMPREHENSIVE METABOLIC 47090 Glucose 83 mg/dL 07/15/2017 COMPREHENSIVE METABOLIC 93774 Bicarbonate 30 mmol/L 07/15/2017 COMPREHENSIVE METABOLIC 23286 AGAP 1 mmol/L 07/15/2017 THYROID STIMULATING HORMONE 69151 TSH 2.111 uIU/mL 7 COMPREHENSIVE METABOLIC 33419 AST 33 U/L 08/27/2016 COMPREHENSIVE METABOLIC 13109 ALT 55 U/L 08/27/2016 COMPREHENSIVE METABOLIC 71137 BUN 11 mg/dL 08/27/2016 COMPREHENSIVE METABOLIC 63498 ALBUMIN 4.6 g/dL 08/27/2016 COMPREHENSIVE METABOLIC 58928 CHLORIDE 103 mmol/L 08/27/2016 COMPREHENSIVE METABOLIC 88585 Bili Total 0.3 mg/dL 08/27/2016 COMPREHENSIVE METABOLIC 36872 ALK PHOS 60 U/L 08/27/2016 COMPREHENSIVE METABOLIC 00970 SODIUM 140 mmol/L 08/27/2016 COMPREHENSIVE METABOLIC 28336 CREATININE 0.69 mg/dL 08/27/2016 COMPREHENSIVE METABOLIC 50355 CALCIUM 9.3 mg/dL 08/27/2016 COMPREHENSIVE METABOLIC 02867 POTASSIUM 3.7 mmol/L 08/27/2016 COMPREHENSIVE METABOLIC 79788 Total Protein 6.8 g/dL 08/27/2016 COMPREHENSIVE METABOLIC 00780 Glucose 79 mg/dL 08/27/2016 COMPREHENSIVE METABOLIC 30984 Bicarbonate 25 mmol/L 08/27/2016 COMPREHENSIVE METABOLIC 44491 AGAP 12 mmol/L 08/27/2016 COMPLETE BLOOD COUNT 6508002 WBC 9.4 10e9/L 08/27/2016 COMPLETE BLOOD COUNT 2354183 RBC 4.35 10e12/L 7 COMPLETE BLOOD COUNT 4129791 HEMOGLOBIN 14.2 g/dL 08/27/2016 COMPLETE BLOOD COUNT 7292280 HEMATOCRIT 41.5 % 08/27/2016 COMPLETE BLOOD COUNT 8907875 MCV 95.4 fL 08/27/2016 COMPLETE BLOOD COUNT 7805462 MCH 32.6 pg 08/27/2016 COMPLETE BLOOD COUNT 6992698 MCHC 34.2 g/dL 08/27/2016 COMPLETE BLOOD COUNT 9865126 PLATELET COUNT 289 10e9/L 08/27/2016 COMPLETE BLOOD COUNT 0994270 Mean Plt Volume 9.8 fL 08/27/2016 COMPLETE BLOOD COUNT 7437365 Neut Auto 47.7 % 08/27/2016 COMPLETE BLOOD COUNT 4006644 Lymph Auto 44.2 % 08/27/2016 COMPLETE BLOOD COUNT 8519747 [place] Auto 6.6 % 08/27/2016 COMPLETE BLOOD COUNT 1188838 RDW 12.9 % 08/27/2016 COMPLETE BLOOD COUNT 4239595 Eos Auto 1.4 % 08/27/2016 COMPLETE BLOOD COUNT 4686341 Baso Auto 0.1 % 08/27/2016 COMPLETE BLOOD COUNT 0887423 Neutrophil Abs 4.48 10e9/L 08/27/2016 COMPLETE BLOOD COUNT 9921851 Lymphocyte Abs 4.15 10e9/L 08/27/2016 COMPLETE BLOOD COUNT 5750018 Monocyte Abs 0.62 10e9/L 08/27/2016 COMPLETE BLOOD COUNT 1460373 Eosinophil Abs 0.13 10e9/L 08/27/2016 COMPLETE BLOOD COUNT 6432696 RDW-SD 43.9 fL 08/27/2016 COMPLETE BLOOD COUNT 0190956 Basophil Abs 0.01 10e9/L 08/27/2016 PT 5360022 PT 15.0 Seconds 08/27/2016 PT 6440830 INR 1.2 08/27/2016 GFR CALC 6842612 GFR Afr Amr >60 mL/min 08/27/2016 GFR CALC 5145533 GFR Non Afr Amr >60 mL/min 08/27/2016 GFR CALC 2764045 GFR Non Afr Amr >60 mL/min 05/24/2016 GFR CALC 9318813 GFR Afr Amr >60 mL/min 05/24/2016 COMPREHENSIVE METABOLIC 14542 AST 19 U/L 05/24/2016 COMPREHENSIVE METABOLIC 54577 ALT 23 U/L 05/24/2016 COMPREHENSIVE METABOLIC 92425 BUN 12 mg/dL 05/24/2016 COMPREHENSIVE METABOLIC 37667 ALBUMIN 4.1 g/dL 05/24/2016 COMPREHENSIVE METABOLIC 99335 CHLORIDE 105 mmol/L 05/24/2016 COMPREHENSIVE METABOLIC 95975 Bili Total 0.4 mg/dL 05/24/2016 COMPREHENSIVE METABOLIC 59271 ALK PHOS 52 U/L 05/24/2016 COMPREHENSIVE METABOLIC 70579 SODIUM 136 mmol/L 05/24/2016 COMPREHENSIVE METABOLIC 77442 CREATININE 0.61 mg/dL 05/24/2016 COMPREHENSIVE METABOLIC 38860 CALCIUM 8.8 mg/dL 05/24/2016 COMPREHENSIVE METABOLIC 21037 POTASSIUM 3.8 mmol/L 05/24/2016 COMPREHENSIVE METABOLIC 71509 Total Protein 6.2 g/dL 05/24/2016 COMPREHENSIVE METABOLIC 82370 Glucose 95 mg/dL 05/24/2016 COMPREHENSIVE METABOLIC 87729 Bicarbonate 19 mmol/L 05/24/2016 COMPREHENSIVE METABOLIC 15650 AGAP 12 mmol/L 05/24/2016 PT 4903578 PT 25.7 Seconds 05/24/2016 PT 3541831 INR 2.4 05/24/2016 PT 1356981 PT 22.2 Seconds 04/11/2016 PT 9274116 INR 2.0 04/11/2016 PT 9437609 PT 16.5 Seconds 03/13/2016 PT 0402903 INR 1.4 03/13/2016 THYROID STIMULATING HORMONE 57533 TSH 1.151 uIU/mL 6 COMPLETE BLOOD COUNT 0258775 WBC 10.0 10e9/L 03/12/2016 COMPLETE BLOOD COUNT 0536429 RBC 4.08 10e12/L 6 COMPLETE BLOOD COUNT 4910174 HEMOGLOBIN 13.5 g/dL 03/12/2016 COMPLETE BLOOD COUNT 1500892 HEMATOCRIT 38.8 % 03/12/2016 COMPLETE BLOOD COUNT 0453374 MCV 95.1 fL 03/12/2016 COMPLETE BLOOD COUNT 8182746 MCH 33.1 pg 03/12/2016 COMPLETE BLOOD COUNT 2483147 MCHC 34.8 g/dL 03/12/2016 COMPLETE BLOOD COUNT 1230399 PLATELET COUNT 282 10e9/L 03/12/2016 COMPLETE BLOOD COUNT 9639515 Mean Plt Volume 9.6 fL 03/12/2016 COMPLETE BLOOD COUNT 3804778 Neut Auto 53.5 % 03/12/2016 COMPLETE BLOOD COUNT 6187267 Lymph Auto 39.0 % 03/12/2016 COMPLETE BLOOD COUNT 4466099 [place] Auto 5.9 % 03/12/2016 COMPLETE BLOOD COUNT 6211230 RDW 12.6 % 03/12/2016 COMPLETE BLOOD COUNT 9812457 Eos Auto 1.4 % 03/12/2016 COMPLETE BLOOD COUNT 2817089 Baso Auto 0.2 % 03/12/2016 COMPLETE BLOOD COUNT 5067122 Neutrophil Abs 5.35 10e9/L 03/12/2016 COMPLETE BLOOD COUNT 9424746 Lymphocyte Abs 3.90 10e9/L 03/12/2016 COMPLETE BLOOD COUNT 9626908 Monocyte Abs 0.59 10e9/L 03/12/2016 COMPLETE BLOOD COUNT 9747770 Eosinophil Abs 0.14 10e9/L 03/12/2016 COMPLETE BLOOD COUNT 5557836 RDW-SD 42.7 fL 03/12/2016 COMPLETE BLOOD COUNT 2388628 Basophil Abs 0.02 10e9/L 03/12/2016 COMPREHENSIVE METABOLIC 68820 AST 13 U/L 03/12/2016 COMPREHENSIVE METABOLIC 92478 ALT 11 U/L 03/12/2016 COMPREHENSIVE METABOLIC 81096 BUN 11 mg/dL 03/12/2016 COMPREHENSIVE METABOLIC 53336 ALBUMIN 4.1 g/dL 03/12/2016 COMPREHENSIVE METABOLIC 05738 CHLORIDE 107 mmol/L 03/12/2016 COMPREHENSIVE METABOLIC 92610 Bili Total 0.3 mg/dL 03/12/2016 COMPREHENSIVE METABOLIC 60259 ALK PHOS 41 U/L 03/12/2016 COMPREHENSIVE METABOLIC 89339 SODIUM 137 mmol/L 03/12/2016 COMPREHENSIVE METABOLIC 19161 CREATININE 0.62 mg/dL 03/12/2016 COMPREHENSIVE METABOLIC 26471 CALCIUM 9.0 mg/dL 03/12/2016 COMPREHENSIVE METABOLIC 57016 POTASSIUM 3.8 mmol/L 03/12/2016 COMPREHENSIVE METABOLIC 64128 Total Protein 6.1 g/dL 03/12/2016 COMPREHENSIVE METABOLIC 13201 Glucose 95 mg/dL 03/12/2016 COMPREHENSIVE METABOLIC 64215 Bicarbonate 23 mmol/L 03/12/2016 COMPREHENSIVE METABOLIC 34526 AGAP 7 mmol/L 03/12/2016 GFR CALC 1433663 GFR Non Afr Amr >60 mL/min 03/12/2016 GFR CALC 2509021 GFR Afr Amr >60 mL/min 03/12/2016 PT 1394959 PT 14.4 Seconds 02/12/2016 PT 0163730 INR 1.2 02/12/2016 PT 8814948 PT 26.1 Seconds 02/01/2016 PT 3063791 INR 2.4 02/01/2016 [place] VCA G/M + [place] + [place] [address]|8 6665 x 2|87121 EBV VCA Ab IgG 3.70 11/13/2015 [place] VIRUS VCA G/M + EB[place] + [place] [address]|8 6665 x 2|97740 EBV VCA Ab IgM 0.47 11/13/2015 [place] VCA [place] + [place] + [place] [address]|8 6665 x 2|98966 EBV Nuclear Ab 2.24 11/13/2015 EB V[place] VCA G/M + [place] + [place] [address]|8 6665 x 2|62308 EBV Early Ab 1.37 11/13/2015 PT 3654285 PT 18.9 Seconds 11/10/2015 PT 1665057 INR 1.6 11/10/2015 PT 1056749 PT 16.8 Seconds 09/29/2015 PT 6002309 INR 1.4 09/29/2015 COMPLETE BLOOD COUNT 2116044 WBC 9.6 10e9/L 09/29/2015 COMPLETE BLOOD COUNT 5668950 RBC 4.51 10e12/L 6 COMPLETE BLOOD COUNT 2675672 HEMOGLOBIN 14.8 g/dL 09/29/2015 COMPLETE BLOOD COUNT 2044388 HEMATOCRIT 43.3 % 09/29/2015 COMPLETE BLOOD COUNT 1745935 MCV 96.0 fL 09/29/2015 COMPLETE BLOOD COUNT 2958477 MCH 32.8 pg 09/29/2015 COMPLETE BLOOD COUNT 5081719 MCHC 34.2 g/dL 09/29/2015 COMPLETE BLOOD COUNT 8846244 PLATELET COUNT 310 10e9/L 09/29/2015 COMPLETE BLOOD COUNT 3525674 Mean Plt Volume 9.7 fL 09/29/2015 COMPLETE BLOOD COUNT 6702542 Neutrophil 60.3 % 09/29/2015 COMPLETE BLOOD COUNT 8047792 Lymph Auto % 32.4 % 09/29/2015 COMPLETE BLOOD COUNT 7540806 Monocyte Auto % 6.5 % 09/29/2015 COMPLETE BLOOD COUNT 0619869 RDW 12.8 % 09/29/2015 COMPLETE BLOOD COUNT 4129447 Eosinophil 0.7 % 09/29/2015 COMPLETE BLOOD COUNT 5404799 Basophil 0.1 % 09/29/2015 COMPLETE BLOOD COUNT 4442883 Neutrophil Abs 5.79 10e9/L 09/29/2015 COMPLETE BLOOD COUNT 6251812 Lymphoctye Abs 3.11 10e9/L 09/29/2015 COMPLETE BLOOD COUNT 4291824 Monocyte Abs 0.62 10e9/L 09/29/2015 COMPLETE BLOOD COUNT 9343694 Eosinophil Abs 0.07 10e9/L 09/29/2015 COMPLETE BLOOD COUNT 3491258 RDW-SD 43.6 fL 09/29/2015 COMPLETE BLOOD COUNT 7407107 Basophil Abs 0.01 10e9/L 09/29/2015 IRON 44036 Iron 86 ug/dL 09/29/2015 COMPLETE BLOOD COUNT 2543962 WBC 9.6 10e9/L 09/29/2015 COMPLETE BLOOD COUNT 2210265 RBC 4.51 10e12/L 6 COMPLETE BLOOD COUNT 5222448 HEMOGLOBIN 14.8 g/dL 09/29/2015 COMPLETE BLOOD COUNT 1710604 HEMATOCRIT 43.3 % 09/29/2015 COMPLETE BLOOD COUNT 4452475 MCV 96.0 fL 09/29/2015 COMPLETE BLOOD COUNT 2087078 MCH 32.8 pg 09/29/2015 COMPLETE BLOOD COUNT 1350706 MCHC 34.2 g/dL 09/29/2015 COMPLETE BLOOD COUNT 2573708 PLATELET COUNT 310 10e9/L 09/29/2015 COMPLETE BLOOD COUNT 2411909 Mean Plt Volume 9.7 fL 09/29/2015 COMPLETE BLOOD COUNT 7522311 Neutrophil 60.3 % 09/29/2015 COMPLETE BLOOD COUNT 3786008 Lymph Auto % 32.4 % 09/29/2015 COMPLETE BLOOD COUNT 1223052 Monocyte Auto % 6.5 % 09/29/2015 COMPLETE BLOOD COUNT 0982537 RDW 12.8 % 09/29/2015 COMPLETE BLOOD COUNT 1970924 Eosinophil 0.7 % 09/29/2015 COMPLETE BLOOD COUNT 0482119 Basophil 0.1 % 09/29/2015 COMPLETE BLOOD COUNT 0431190 Neutrophil Abs 5.79 10e9/L 09/29/2015 COMPLETE BLOOD COUNT 6640115 Lymphoctye Abs 3.11 10e9/L 09/29/2015 COMPLETE BLOOD COUNT 0846198 Monocyte Abs 0.62 10e9/L 09/29/2015 COMPLETE BLOOD COUNT 1345724 Eosinophil Abs 0.07 10e9/L 09/29/2015 COMPLETE BLOOD COUNT 2518270 RDW-SD 43.6 fL 09/29/2015 COMPLETE BLOOD COUNT 5864497 Basophil Abs 0.01 10e9/L 09/29/2015 PT 0278878 PT 16.8 Seconds 09/29/2015 PT 4733765 INR 1.4 09/29/2015 IRON 06011 Iron 86 ug/dL 09/29/2015 PT [place] [address]23 PRO T PAULIE 19.4 SEC 07/27/2015 PT [place] 15839 INR M CMC 1.7 07/27/2015 PT [place] 19106 PRO T [place]UL[place] 21.4 SEC 06/21/2015 PT [facility] 69975 INR M CMC 1.9 06/21/2015 PT [facility] 78365 PRO T [place]UL[place] 24.5 SEC 05/24/2015 PT [facility] 65650 INR M CMC 2.3 05/24/2015 Review of [...] - General Neurologic mental status Overall: alert 03/21/201 8 None Full Exam - General Neurologic [...] Procedures Procedure Codes Date ROUTINE VENIPUNCTURE CPT-4: 29053 02/17/2019 PT CPT-4: 4821741 02/17/2019 URINE CULTURE/ COLON Y COUNT CPT-4: 84620 02/08/2019 ROUTINE VENIPUNCTURE CPT-4: 27584 01/19/2019 PROTHROMBIN TIME CPT-4: 27929 01/19/2019 COMPLETE CBC W/AUTO DIFF WBC CPT-4: 20310 01/19/2019 ANTISTREPTOLYSIN O T ITER CPT-4: 21508 01/19/2019 HEPATIC FUNCTION PANEL CPT-4: 12545 01/19/2019 MYCOPLASMA ANTIBODY, IFA CPT-4: 85362U9 01/19/2019 RESPIRATORY CULTURE & STAIN CPT-4: 88391 01/19/2019 STREP A ASSAY W/OPTIC CPT-4: 33687 01/19/2019 THER/PROPH/DIAG INJ SC/IM CPT-4: 65856 01/04/2019 TRIAMCINOLONE ACET I [place] NOS CPT-4: J3301 01/04/2019 ROUTINE VENIPUNCTURE CPT-4: 55472 12/18/2018 COMPLETE CBC W/AUTO DIFF WBC CPT-4: 78946 12/18/2018 COMPREHEN METABOLIC PANEL CPT-4: 35261 12/18/2018 HYDRATION IV INFUSIO N INIT CPT-4: 85587 12/16/2018 STREP A ASSAY W/OPTIC CPT-4: 85746 12/02/2018 ROUTINE VENIPUNCTURE CPT-4: 77339 11/30/2018 PT CPT-4: 8092973 11/30/2018 CEFTRIAXONE SODIUM I NJECTION CPT-4: J0696 11/30/2018 THER/PROPH/DIAG INJ SC/IM CPT-4: 47671 11/30/2018 URINE CULTURE/ COLON Y COUNT CPT-4: 22678 11/20/2018 URINALYSIS NONAUTO W /O SCOPE CPT-4: 65225 11/20/2018 CEFTRIAXONE SODIUM I NJECTION CPT-4: J0696 11/12/2018 THER/PROPH/DIAG INJ SC/IM CPT-4: 56613 11/12/2018 STREP A ASSAY W/OPTIC CPT-4: 78275 11/11/2018 CEFTRIAXONE SODIUM I NJECTION CPT-4: J0696 11/11/2018 THER/PROPH/DIAG INJ SC/IM CPT-4: 42702 11/11/2018 ROUTINE VENIPUNCTURE CPT-4: 94477 11/11/2018 ANTISTREPTOLYSIN O T ITER CPT-4: 65617 11/11/2018 COMPLETE CBC W/AUTO DIFF WBC CPT-4: 41592 11/11/2018 ROUTINE VENIPUNCTURE CPT-4: 77306 10/27/2018 PT CPT-4: 7821341 10/27/2018 THER/PROPH/DIAG INJ SC/IM CPT-4: 95400 10/09/2018 TRIAMCINOLONE ACET I [place] NOS CPT-4: J3301 10/09/2018 CEFTRIAXONE SODIUM I NJECTION CPT-4: J0696 10/08/2018 THER/PROPH/DIAG INJ SC/IM CPT-4: 87087 10/08/2018 CEFTRIAXONE SODIUM I NJECTION CPT-4: J0696 10/07/2018 THER/PROPH/DIAG INJ SC/IM CPT-4: 02233 10/07/2018 ROUTINE VENIPUNCTURE CPT-4: 17940 09/25/2018 COMPREHEN METABOLIC PANEL CPT-4: 25158 09/25/2018 COMPLETE CBC W/AUTO DIFF WBC CPT-4: 76717 09/25/2018 PT CPT-4: 7507964 09/25/2018 URINE CULTURE/ COLON Y COUNT CPT-4: 01385 09/10/2018 URINALYSIS NONAUTO W /O SCOPE CPT-4: 28626 09/10/2018 CEFTRIAXONE SODIUM I NJECTION CPT-4: J0696 09/08/2018 THER/PROPH/DIAG INJ SC/IM CPT-4: 22052 09/08/2018 ROUTINE VENIPUNCTURE CPT-4: 76087 08/14/2018 PT CPT-4: 4144809 08/14/2018 CEFTRIAXONE SODIUM I NJECTION CPT-4: J0696 07/02/2018 THER/PROPH/DIAG INJ SC/IM CPT-4: 60855 07/02/2018 THER/PROPH/DIAG INJ SC/IM CPT-4: 24864 07/02/2018 TRIAMCINOLONE ACET I NJ NOS CPT-4: J3301 07/02/2018 ROUTINE VENIPUNCTURE CPT-4: 24904 06/22/2018 ANTISTREPTOLYSIN O T ITER CPT-4: 90105 06/22/2018 ROUTINE VENIPUNCTURE CPT-4: 31840 06/17/2018 PROTHROMBIN TIME CPT-4: 72645 06/17/2018 URINE CULTURE/ COLON Y COUNT CPT-4: 35795 06/17/2018 CEFTRIAXONE SODIUM I NJECTION CPT-4: J0696 05/12/2018 THER/PROPH/DIAG INJ SC/IM CPT-4: 27416 05/12/2018 PROTHROMBIN TIME CPT-4: 51403 05/11/2018 CEFTRIAXONE SODIUM I NJECTION CPT-4: J0696 05/11/2018 THER/PROPH/DIAG INJ SC/IM CPT-4: 58407 05/11/2018 ROUTINE VENIPUNCTURE CPT-4: 86734 04/30/2018 PROTHROMBIN TIME CPT-4: 19538 04/30/2018 THER/PROPH/DIAG INJ SC/IM CPT-4: 56798 04/02/2018 TRIAMCINOLONE ACET I [place] NOS CPT-4: J3301 04/02/2018 IIV4 VACCINE 3 YRS+ IM AND UP CPT-4: 86005 03/24/2018 IMMUNIZATION ADMIN CPT- 4: 91246 03/24/2018 ROUTINE VENIPUNCTURE CPT-4: 64587 03/24/2018 PT CPT-4: 6870013 03/24/2018 PROTHROMBIN TIME CPT-4: 50044 02/24/2018 ROUTINE VENIPUNCTURE CPT-4: 68672 02/24/2018 ROUTINE VENIPUNCTURE CPT-4: 38526 02/05/2018 PROTHROMBIN TIME CPT-4: 62677 02/05/2018 URINE CULTURE/ COLON Y COUNT CPT-4: 00730 02/05/2018 CEFTRIAXONE SODIUM I NJECTION CPT-4: J0696 01/29/2018 THER/PROPH/DIAG INJ SC/IM CPT-4: 74991 01/29/2018 CEFTRIAXONE SODIUM I NJECTION CPT-4: J0696 01/28/2018 THER/PROPH/DIAG INJ SC/IM CPT-4: 15647 01/28/2018 URINALYSIS NONAUTO W /O SCOPE CPT-4: 21478 01/26/2018 URINE CULTURE/ COLON Y COUNT CPT-4: 94282 01/26/2018 ROUTINE VENIPUNCTURE CPT-4: 05414 01/01/2018 PROTHROMBIN TIME CPT-4: 65624 01/01/2018 THER/PROPH/DIAG INJ SC/IM CPT-4: 65548 12/25/2017 TRIAMCINOLONE ACET I NJ NOS CPT-4: J3301 12/25/2017 DEXAMETHASONE SODIUM PHOS CPT-4: J1100 12/25/2017 STREP A ASSAY W/OPTIC CPT-4: 84982 12/11/2017 CEFTRIAXONE SODIUM I NJECTION CPT-4: J0696 12/11/2017 THER/PROPH/DIAG INJ SC/IM CPT-4: 42107 12/11/2017 ROUTINE VENIPUNCTURE CPT-4: 40011 12/01/2017 ANTISTREPTOLYSIN O T ITER CPT-4: 11914 12/01/2017 PROTHROMBIN TIME CPT-4: 89282 12/01/2017 VITAMIN D TOTAL (25 HYDROXY) CPT-4: 65542 12/01/2017 VITAMIN B-12 CPT-4: 89104 12/01/2017 SPECIMEN HANDLING OF FICE-LAB CPT-4: 46549 11/05/2017 ROUTINE VENIPUNCTURE CPT-4: 34551 10/14/2017 ANTISTREPTOLYSIN O T ITER CPT-4: 28096 10/14/2017 ROUTINE VENIPUNCTURE CPT-4: 18785 10/06/2017 PROTHROMBIN TIME CPT-4: 98674 10/06/2017 THER/PROPH/DIAG INJ SC/IM CPT-4: 52736 10/06/2017 TRIAMCINOLONE ACET I [place] NOS CPT-4: J3301 10/06/2017 ROUTINE VENIPUNCTURE CPT-4: 50754 10/01/2017 VITAMIN B-12 CPT-4: 85014 10/01/2017 FOLIC ACID CPT-4: 80700 10/01/2017 ASSAY THYROID STIM H ORMONE CPT-4: 43656 10/01/2017 ASSAY OF FREE THYROXINE CPT-4: 00444 10/01/2017 ASSAY TRIIODOTHYRONI NE (T3) CPT-4: 65831 10/01/2017 ASSAY OF BLOOD/URIC ACID CPT-4: 50242 10/01/2017 RHEUMATOID FACTOR QUANT CPT-4: 70982 10/01/2017 RBC SED RATE AUTOMATED CPT-4: 15148 10/01/2017 ANTISTREPTOLYSIN O T ITER CPT-4: 91355 10/01/2017 ASSAY OF IRON CPT-4: 14881 10/01/2017 ASSAY OF FERRITIN CPT-4: 78728 10/01/2017 ANTINUCLEAR ANTIBODIES CPT-4: 71569 10/01/2017 A1C HPLC CPT-4: 27094 10/01/2017 VITAMIN D TOTAL (25 HYDROXY) CPT-4: 58758 10/01/2017 THER/PROPH/DIAG INJ SC/IM CPT-4: 33865 09/05/2017 TRIAMCINOLONE ACET I NJ NOS CPT-4: J3301 09/05/2017 URINALYSIS NONAUTO W /O SCOPE CPT-4: 86643 09/05/2017 URINE CULTURE/ COLON Y COUNT CPT-4: 19863 09/05/2017 ROUTINE VENIPUNCTURE CPT-4: 60183 09/04/2017 PROTHROMBIN TIME CPT-4: 60266 09/04/2017 ROUTINE VENIPUNCTURE CPT-4: 57639 08/07/2017 COMPLETE CBC W/AUTO DIFF WBC CPT-4: 63969 08/07/2017 COMPREHEN METABOLIC PANEL CPT-4: 74684 08/07/2017 PROTHROMBIN TIME CPT-4: 63177 08/07/2017 INFLUENZA ASSAY W/OPTIC CPT-4: 66187 07/15/2017 ROUTINE VENIPUNCTURE CPT-4: 58955 07/15/2017 COMPREHEN METABOLIC PANEL CPT-4: 91673 07/15/2017 COMPLETE CBC W/AUTO DIFF WBC CPT-4: 40764 07/15/2017 CEFTRIAXONE SODIUM I NJECTION CPT-4: J0696 07/04/2017 THER/PROPH/DIAG INJ SC/IM CPT-4: 90974 07/04/2017 THER/PROPH/DIAG INJ SC/IM CPT-4: 19333 07/04/2017 TRIAMCINOLONE ACET I NJ NOS CPT-4: J3301 07/04/2017 CEFTRIAXONE SODIUM I NJECTION CPT-4: J0696 07/02/2017 THER/PROPH/DIAG INJ SC/IM CPT-4: 54760 07/02/2017 CEFTRIAXONE SODIUM I NJECTION CPT-4: J0696 07/01/2017 THER/PROPH/DIAG INJ SC/IM CPT-4: 13334 07/01/2017 ROUTINE VENIPUNCTURE CPT-4: 38931 06/19/2017 PROTHROMBIN TIME CPT-4: 05659 06/19/2017 THER/PROPH/DIAG INJ SC/IM CPT-4: 84739 04/01/2017 TRIAMCINOLONE ACET I NJ NOS CPT-4: J3301 04/01/2017 ROUTINE VENIPUNCTURE CPT-4: 33405 02/10/2017 PROTHROMBIN TIME CPT-4: 89892 02/10/2017 URINALYSIS NONAUTO W /O SCOPE CPT-4: 66857 02/10/2017 URINE CULTURE/ COLON Y COUNT CPT-4: 05458 02/10/2017 ROUTINE VENIPUNCTURE CPT-4: 09781 02/05/2017 PROTHROMBIN TIME CPT-4: 33064 02/05/2017 THROAT CULTURE CPT-4: 20416 02/03/2017 STREP A ASSAY W/OPTIC CPT-4: 37826 01/13/2017 ROUTINE VENIPUNCTURE CPT-4: 09330 12/18/2016 PROTHROMBIN TIME CPT-4: 46750 12/18/2016 URINE CULTURE/ COLON Y COUNT CPT-4: 24721 08/27/2016 ASSAY THYROID STIM H ORMONE CPT-4: 14478 08/27/2016 COMPREHEN METABOLIC PANEL CPT-4: 40785 08/27/2016 COMPLETE CBC W/AUTO DIFF WBC CPT-4: 20973 08/27/2016 PROTHROMBIN TIME CPT-4: 97208 08/27/2016 ROUTINE VENIPUNCTURE CPT-4: 19849 08/27/2016 ROUTINE VENIPUNCTURE CPT-4: 69280 05/24/2016 COMPREHEN METABOLIC PANEL CPT-4: 81629 05/24/2016 PROTHROMBIN TIME CPT-4: 02588 05/24/2016 URINALYSIS NONAUTO W /O SCOPE CPT-4: 13444 04/23/2016 URINE CULTURE/ COLON Y COUNT CPT-4: 69002 04/23/2016 PRESCRIP TRANSMIT A ERX SY CPT-4: G8553 04/23/2016 AEROBIC WOUND CULTUR E & STN CPT-4: 73968 04/17/2016 ROUTINE VENIPUNCTURE CPT-4: 03836 04/11/2016 PROTHROMBIN TIME CPT-4: 65956 04/11/2016 ROUTINE VENIPUNCTURE CPT-4: 81680 03/12/2016 COMPLETE CBC W/AUTO DIFF WBC CPT-4: 11155 03/12/2016 COMPREHEN METABOLIC PANEL CPT-4: 82572 03/12/2016 ASSAY THYROID STIM H ORMONE CPT-4: 10297 03/12/2016 PROTHROMBIN TIME CPT-4: 73560 03/12/2016 ROUTINE VENIPUNCTURE CPT-4: 30559 02/12/2016 PROTHROMBIN TIME CPT-4: 78226 02/12/2016 ROUTINE VENIPUNCTURE CPT-4: 10383 02/01/2016 PROTHROMBIN TIME CPT-4: 69040 02/01/2016 ROUTINE VENIPUNCTURE CPT-4: 39824 01/22/2016 PROTHROMBIN TIME CPT-4: 54569 01/22/2016 ROUTINE VENIPUNCTURE CPT-4: 78903 11/10/2015 PROTHROMBIN TIME CPT-4: 00661 11/10/2015 CEFTRIAXONE SODIUM I NJECTION CPT-4: J0696 11/10/2015 THER/PROPH/DIAG INJ SC/IM CPT-4: 30729 11/10/2015 EB VIRUS VCA G/M + E BNA + EA CPT-4: 15799|58730 x 2|88739 016 THROAT CULTURE CPT-4: 48662 11/09/2015 STREP A ASSAY W/OPTIC CPT-4: 27189 11/09/2015 STREP A ASSAY W/OPTIC CPT-4: 19180 10/02/2015 ROUTINE VENIPUNCTURE CPT-4: 38664 09/29/2015 COMPLETE CBC W/AUTO DIFF WBC CPT-4: 23632 09/29/2015 ASSAY OF IRON CPT-4: 33568 09/29/2015 PROTHROMBIN TIME CPT-4: 49429 09/29/2015 ROUTINE VENIPUNCTURE CPT-4: 42160 07/27/2015 PROTHROMBIN TIME CPT-4: 98632 07/27/2015 URINALYSIS NONAUTO W /O SCOPE CPT-4: 14347 06/30/2015 URINE CULTURE/ COLON Y COUNT CPT-4: 39009 06/30/2015 ROUTINE VENIPUNCTURE CPT-4: 80095 06/21/2015 PROTHROMBIN TIME CPT-4: 08863 06/21/2015 URINE CULTURE/ COLON Y COUNT CPT-4: 74726 05/31/2015 ROUTINE VENIPUNCTURE CPT-4: 35880 05/24/2015 PROTHROMBIN TIME CPT-4: 81136 05/24/2015 URINALYSIS NONAUTO W /O SCOPE CPT-4: 29426 05/24/2015 Vital Signs Date Vital 02/17/2019 Blood [...] 1: 122/70 Code: 8480-6 BMI: 32.2 Code: 92923-5 Heart Rate 1: 88 bpm Height: 5'3" Respiratory Rate: 20 bpm SpO2: 96% Temperature: 36.8 (C ) / 98.2 (F) Weight: 182 lbs 07/23/2018 Blood Pressure 1: 132/80 Code: 8480-6 Heart Rate 1: 84 bpm Respiratory Rate: 20 bpm SpO2: 96% Temperature: 36.6 (C ) / 97.8 (F) Weight: 187 lbs 07/08/2018 Blood Pressure 1: 122/70 Code: 8480-6 BMI: 32.2 Code: 49257-0 Heart Rate 1: 88 bpm Height: 5'3" Respiratory Rate: 20 bpm Temperature: 36.6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 : J02.8 01/19/2019 Visit Diagnosis Plan: nursing home (current ) [...] ICD-10 : R05 01/19/2019 Appointment: Ivon Sky [address] [place], [place] [address] ACUTE ILLNESS 01/19/2019 Visit Diagnosis Plan: Otalgia, [...] ICD-10 : R53.83 01/04/2019 Appointment: Ivon Sky [address] [place] [address] ACUTE ILLNESS 01/04/2019 Appointment: Kristine Brambila WPtel: [address] [place] [address] LAB 12/18/2018 Appointment: Kristine Brambila WPtel: [address] [place] [address] ACUTE ILLNESS 12/16/2018 Visit Diagnosis Plan: Anemia, [...] : R53.83 12/03/2018 Appointment: Kristine Brambila WPtel: [address] [place] [address] ACUTE ILLNESS 12/03/2018 Visit Diagnosis Plan: Acute [...] ICD-10 : R59.9 12/02/2018 Appointment: Ivon Sky [address] [place] [address] FOLLOW UP 12/02/2018 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 instructed to call or rtc with any new or worsening concerns. tylenol prn pain. ICD-9 : 382.00 ICD-10 : H66.002 11/30/2018 Appointment: Ivon Sky [address] ACUTE ILLNESS 11/30/2018 Patient Education: Coumadin- OptimizeRX Coupon [id number] https://www.WyzAnt.com/sampleQuandoo/resources/getResource/61/[email or web address] Completed 11/30/2018 Appointment: Kristine Brambila WPtel: [address] [place] [address] UA 11/20/2018 Appointment: Kristine Brambila WPtel: [address] [place] [address] US INJECTION 11/12/2018 Visit Diagnosis Plan: Streptococcal pharyngitis Discussion: Strep A- positive ASO titer today along with CBC. Rocephin 1 gram. RTC tmrw for another injection. Patient states understanding. ICD-9 : 034.0 ICD-10 : J02.0 11/11/2018 Appointment: Lulu Navarro [address] ACUTE ILLNESS 11/11/2018 Appointment: Kristine Brambila WPtel: [address] [place] [address] ACUTE ILLNESS 10/27/2018 Appointment: Kristine Brambila WPtel: [address] [place] [address] US INJECTION 10/09/2018 Visit Diagnosis Plan: Acute recurrent maxillary sinusi tis Discussion: Rocephin 1 gram administered in clinic- patient tolerated well. Continue with supportive treatment at home as well. Tylenol for headache. Salt water gargles and sinus rinses advised. Patient states understanding. ICD-9 : 461.0 ICD-10 : J01.10/08/2018 Appointment: Lulu Navarro [address] [place], [place] [phone] [place] INJECTION 10/08/2018 Visit Diagnosis Plan: Acute recurrent maxillary sinusi tis Discussion: Rocephin- 1 gram administered in clinic. Patient tolerated well. Sinus rinses encouraged. Rest and fluids. Tylenol or Motrin for pain and fever. FU PRN. Patient states understanding. ICD-9 : 461.0 ICD-10 : J01.10/07/2018 Appointment: Lulu Navarro [address] [place], [place] [id number] ACUTE ILLNESS 10/07/2018 Visit Diagnosis Plan: Dizziness [...] ICD-10 : R42 09/25/2018 Appointment: Lulu Navarro [address] [place], [place] [phone] ACUTE ILLNESS 09/25/2018 Appointment: Kristine Brambila WPtel: Formerly named [facility] UA 09/10/2018 Visit Diagnosis Plan: Furuncle right [...] : R22.1 09/08/2018 Appointment: Kristine Brambila WPtel: [address] [place] [address] ACUTE ILLNESS 09/08/2018 Patient Education: cefdinir- OptimizeRX Coupon [id number] https://www.WyzAnt.com/samplemd/resources/getResource/61/w2299h25-4s20-5jif-o6 Completed 09/08/2018 Appointment: Kristine Brambila WPtel: [address] [place] [address] LAB 08/14/2018 Visit Diagnosis Plan: Acute sinusitis, [...] ICD-10 : H92.02 07/23/2018 Appointment: Ivon Sky [address] [place] [address] ACUTE ILLNESS 07/23/2018 Patient Education: cyclobenzaprine- Opti mizeRX Coupon [id number] https://www.WyzAnt.com/Theravance/resources/getResource/61/v580j7cf-y488-212g-ty [email or web address].pdf Completed 07/23/2018 Visit Diagnosis Plan: Streptococcal infe ction, unspecified site Discussion: Randy Dove Sees dentist today t o assess tooth ICD-9 : 041.00 ICD-10 : A49.1 07/08/2018 Appointment: Kristine Brambila WPtel: [address] [place], [place] [address] FOLLOW UP 07/08/2018 Patient Education: penicillin V potassiu m- OptimizeRX Coupon [id number] https://www.WyzAnt.com/amcuremd/resources/getResource/61/[email or web address] fa-[email or web address].pdf Completed 07/08/2018 Visit Diagnosis Plan: Localized enlarged [...] ICD-10 : K04.6 07/02/2018 Appointment: Ivon Sky [address] [place] [address] ACUTE ILLNESS 07/02/2018 Appointment: Kristine Brambila WPtel: [address] [place] [address] LAB 06/22/2018 Appointment: Kristine Brambila WPtel: [address] [place] [address] UA 06/17/2018 Visit Diagnosis Plan: Acute sinusitis, unspecified Discussion: dc keflex. start cefdinir daily for 10 days. saline up nares prn congestion. if no improvement after antibiotics or worsening symtpoms, call clinic. 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 clindamycin prescribed for patient to take as directed. instructed to stop nasal sprays due to worsening pain/irritation and only use saline rinse up nares for now. call with any new or worsening symptoms. ICD-9 : 461.9 ICD-10 : J01.90 04/02/2018 Appointment: Ivon Sky 504 [facility] ACUTE ILLNESS 04/02/2018 Patient Education: Patient Medication Summary Completed 04/02/2018 Appointment: Kristine Brambila WPtel: Formerly named [facility] US LAB 03/24/2018 Patient Education: Patient Medication [...] ICD-10 : G43.909 03/16/2018 Appointment: Ivon Sky [address] ACUTE ILLNESS 03/16/2018 Patient Education: Patient Medication Summary Completed 03/16/2018 Appointment: Kristine Brambila WPtel: [address] [place] [address] [place] LAB 02/24/2018 Patient Education: Patient Medication Summary Completed 02/24/2018 Appointment: Kristine Brambila WPtel: [address] [place] [address] US RESCHEDULED 02/18/2018 Visit Diagnosis Plan: Abdominal distension (gaseous) Discussion: Flagamor Restora Rx 1 daily Follow Up: 2 weeks ICD-9 : 787.3 ICD-10 : R14.0 02/16/2018 Visit Diagnosis Plan: Epigastric pain Discussion: Pepcid BID ICD-9 : 789.06 ICD-10 : R10.13 02/16/2018 Visit Diagnosis Plan: Diarrhea, unspecified Discussion: Wanda ICD-9 : 787.91 ICD-10 : R19.7 02/16/2018 Appointment: Kristine Brambila WPtel: [address] [place] [address] ACUTE ILLNESS 02/16/2018 Patient Education: Patient Medication Summary Completed 02/16/2018 Appointment: Kristine Brambila WPtel: [address] [place], [place] [phone] [place] INJECTION 02/05/2018 Patient Education: Patient Medication Summary Completed 02/05/2018 Appointment: Kristine Brambila WPtel: [address] [place], [place] [phone] [place] INJECTION 01/29/2018 Patient Education: Patient Medication Summary Completed 01/29/2018 Appointment: Kristine Brambila WPtel: [address] [place], [place] [phone] [place] INJECTION 01/28/2018 Patient Education: Patient Medication [...] ICD-10 : H66.001 01/26/2018 Appointment: Ivon Sky [address] [place] [address] ACUTE ILLNESS 01/26/2018 Patient Education: Patient Medication [...] ICD-10 : K13.79 01/01/2018 Appointment: Ivon Sky [address] [place] [address] ACUTE ILLNESS 01/01/2018 Patient Education: Patient Medication [...] ICD-10 : G43.909 12/25/2017 Appointment: Ivon Sky [address] [place] [address] ACUTE ILLNESS 12/25/2017 Patient Education: Patient Medication Summary Completed 12/25/2017 Visit Diagnosis Plan: Acute pharyngitis, unspecified Discussion: rapid strep negative. rocephin injection given in office. clindamycin prescribed as well to start tomorrow for 10 days. increase fluid intake. call or rtc next week if new or worsening symptoms. ICD-9 : 462 ICD-10 : J02.9 12/11/2017 Appointment: Ivon Sky [address] [place] [address] ACUTE ILLNESS 12/11/2017 Patient Education: Patient Medication Summary Completed 12/11/2017 Appointment: Kristine Brambila WPtel: [address] [place] [address] LAB 12/01/2017 Patient Education: Patient Medication Summary Completed 12/01/2017 Visit Diagnosis Plan: Encounter for gyne cological examination (general) (routine) without abnormal findings Discussion: Pap done as has a history of choriocarcinoma Had mammogram last month ICD-9 : V72.31 ICD-10 : Z01.419 11/05/2017 Appointment: Kristine Brambila WPtel: [address] [place] [address] Annual Well Visit 11/05/2017 Patient Education: Patient Medication Summary Completed 11/05/2017 Appointment: Kristine Brambila WPtel: [address] [place] [address] LAB 10/14/2017 Patient Education: Patient Medication Summary Completed 10/14/2017 Care Plan: X-RAY EXAM OF SHOULDER right LOINC : 26266-2 Pending 10/07/2017 Visit Diagnosis Plan: Pain in right shoulder Discussion: xray ordered of right shoulder to rule out fracture. 40 mg kenalog given as one shot to assist with pain. 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 ICD-9 : V58.61 ICD-10 : Z79.01 10/06/2017 Appointment: Ivon Sky [address] [place], [place] [phone] ACUTE ILLNESS 10/06/2017 Patient Education: Patient Medication [...] : I73.00 10/01/2017 Appointment: Kristine Brambila WPtel: [address] [place] [address] ACUTE ILLNESS 10/01/2017 Patient Education: Patient Medication [...] ICD-10 : T23.262A 09/10/2017 Appointment: Ivon Sky [address] [place], [place] [phone] ACUTE ILLNESS 09/10/2017 Patient Education: Patient Medication Summary Completed 09/10/2017 Appointment: Kristine Brambila WPtel: [address] [place], [place] [phone] [place] INJECTION 09/05/2017 Patient Education: Patient Medication Summary Completed 09/05/2017 Appointment: Kristine Brambila WPtel: [address] [place], [place] [phone] [place] LAB 09/04/2017 Patient Education: Patient Medication Summary Completed 09/04/2017 Appointment: Kristine Brambila WPtel: [address] [place], [place] [phone] LAB 08/07/2017 Patient Education: Patient Medication Summary Completed 08/07/2017 Patient Education: Patient Medication Summary Completed 07/21/2017 Care Plan: CHEST X-RAY 2VW FRONTAL&LATL LOINC : 42983-7 Pending 07/21/2017 Visit Diagnosis Plan: Acute upper [...] ICD-10 : K21.9 07/15/2017 Appointment: Ivon Sky [address] [place] [address] ACUTE ILLNESS 07/15/2017 Patient Education: Patient Medication Summary Completed 07/15/2017 Appointment: Kristine Brambila WPtel: [address] [place], [place] [phone] [place] INJECTION 07/04/2017 Patient Education: Patient Medication Summary Completed 07/04/2017 Appointment: Kristine Brambila WPtel: [address] [place], [place] [phone] [place] INJECTION 07/02/2017 Patient Education: Patient Medication [...] : H66.92 07/01/2017 Appointment: Ivon Sky 504 [facility] ACUTE ILLNESS 07/01/2017 Patient Education: Patient Medication Summary Completed 07/01/2017 Care Plan: US EXAM OF HEAD AND NECK Pending 07/01/2017 Appointment: Kristine Brambila WPtel: [phone] [id number] LAB 06/19/2017 Patient Education: Patient Medication Summary Completed 06/19/2017 Visit Diagnosis Plan: Insomnia, unspecified Discussion: new script for lunesta 1 mg called out to phabrittany as well. ICD-9 : 780.52 ICD-10 : G47.00 05/27/2017 Visit Diagnosis Plan: Pneumonia, unspecified organism Discussion: zpack prescribed along with proair and promethazine to take prn cough. proair prn. ICD-9 : 486 ICD-10 : J18.9 05/27/2017 Appointment: Ivon Sky 504 [facility] ACUTE ILLNESS 05/27/2017 Patient Education: Patient Medication [...] : G47.00 05/20/2017 Appointment: Ivon Sky 504 [facility] ACUTE ILLNESS 05/20/2017 Patient Education: Patient Medication Summary Completed 05/20/2017 Visit Diagnosis Plan: Headache Discu ssion: Discussed likely Migraine Discussed MRI results Discussed changing acetazolamide to HCTZ ICD-9 : 784.0 ICD-10 : R51 04/22/2017 Visit Diagnosis Plan: Diplopia Discu ssion: Updated dilated eye exam ICD-9 : 368.2 ICD-10 : H53.2 04/22/2017 Appointment: Kristine Brambila WPtel: [address] [place], [place] [phone] [place] FOLLOW UP 04/22/2017 Patient Education: Patient Medication Summary Completed 04/22/2017 Appointment: Kristine Brambila WPtel: Formerly named [facility] US RESCHEDULED 04/07/2017 Visit Plan: Saline nasal flushes pr n. Tylenol/Motrin prn headache. Notify if persists/symptoms worsening. 04/01/2017 Visit Plan: Saline nasal flushes pr n. Tylenol/Motrin prn headache. Notify if persists/symptoms worsening. 04/01/2017 Visit NOS Plan: Plan Notes: Saline nasal flushes prn. Tyle... 04/01/2017 Visit Diagnosis Plan: Acute sinusitis, unspecified Discussion: Kenalog 40mg IM x1 Decadron/Garamycin Nose Alverda Mix Has appointment on April 28 with ENT ICD-9 : 461.9 ICD-10 : J01.90 04/01/2017 Appointment: Kristine Brambila WPtel: [address] [place], [place] [phone] ACUTE ILLNESS 04/01/2017 Patient Education: Patient Medication Summary Completed 04/01/2017 Referral: Serjio Lugo WPtel: [address] [place] Referral Appointment Requested 03/20/2017 Patient Education: Patient Medication Summary Completed 02/27/2017 Care Plan: CT ABDOMEN W/O DYE abd/pe lvis stone search LOINC : 54452-6 Pending 02/27/2017 Patient Education: Patient Medication Summary Completed 02/12/2017 Care Plan: MRI NECK SPINE W/O DYE LOINC : 04112-4 Pending 02/12/2017 Appointment: Kristine Brambila WPtel: [address] [place], [place] [phone] [place] LAB 02/10/2017 Patient Education: Patient Medication [...] : M54.2 02/05/2017 Appointment: Kristine Brambila WPtel: [address] [place], [place] [phone] ACUTE ILLNESS 02/05/2017 Patient Education: Patient Medication Summary Completed 02/05/2017 Care Plan: Referral Order SNOMED-CT : [id number] Pending 02/05/2017 Appointment: Kristine Brambila WPtel: [address] [place], [place] [phone] THROAT SWAB 02/03/2017 Patient Education: Patient Medication Summary Completed 02/03/2017 Appointment: Kristine Brambila WPtel: [address] [place], [place] [address] 01/13 canceled~sl CANCELED 01/28/2017 Visit Plan: Supportive [...] : J02.8 01/13/2017 Appointment: Kristine Brambila WPtel: [address] [place], [place] [phone] ACUTE ILLNESS 01/13/2017 Patient Education: Patient Medication Summary Completed 01/13/2017 Appointment: Kristine Brambila WPtel: [address] [place], [place] [phone] LAB 12/18/2016 Patient Education: Patient Medication Summary Completed 12/18/2016 Visit Diagnosis Plan: Pain in unspecified joint Discussion: Will retry methotrexate since has worked in past to greatly reduce patient's pain--4 tabs week one then 5 tabs week 2 then 6 tabs weekly and fwup in 6 weeks ICD-9 : 719.49 ICD-10 : M25.50 11/27/2016 Appointment: Kristine Brambila WPtel: [address] [place], [place] [phone] [place] 11/26 lm~ 11/26 confimed~sl MEDICATION REVIEW 11/27/2016 Patient Education: Patient Medication Summary Completed 11/27/2016 Visit Plan: Supportive care. Rest, Fluids, Tylenol/Motrin prn fever or bodyaches. Notify if worsening symptoms. 08/27/2016 Visit Plan: Supportive care. Rest, Fluids, Tylenol/Motrin prn fever or bodyaches. Notify if worsening symptoms. 08/27/2016 Visit NOS Plan: Plan Notes: Support gauri care. Rest, Fluids... 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 Discussion: PT/INR drawn ICD-9 : V58.61 ICD-10 : Z79.01 08/27/2016 Visit Diagnosis Plan: Dysuria Discus steven: Culture urine ICD-9 : 788.1 ICD-10 : R30.0 08/27/2016 Visit Diagnosis Plan: URI, ACUTE Dis cussion: Supportive care ICD-9 : 465.9 ICD-10 : J06.9 08/27/2016 Appointment: Kristine Brambila WPtel: [address] [place] [address] 08/26 confirmed`sl MEDICATION REVIEW 08/27/2016 Patient Education: Patient Medication Summary Completed 08/27/2016 Appointment: Kristine Brambila WPtel: [address] [place] [address] BP CHECK 07/08/2016 Patient Education: Patient Medication Summary Completed 07/08/2016 Appointment: Kristine Brambila WPtel: [address] [place] [address] LAB 05/24/2016 Patient Education: Patient Medication Summary Completed 05/24/2016 Appointment: Kristine Brambila WPtel: [address] [place] [address] 04/24 will not be able to get [...] with culture results 04/23/2016 Appointment: Nayeli Anderson [address] [place] [address] ACUTE ILLNESS 04/23/2016 Patient Education: Patient Medication [...] oral abx 04/17/2016 Appointment: Nayeli Anderson [address] [facility]66[facility] ACUTE ILLNESS 04/17/2016 Patient Education: Patient Medication Summary Completed 04/17/2016 Patient Education: [facility] - Saving AutoInj - 18-64 - Dynamic Portal ID Completed 04/17/2016 Appointment: Kristine Brambila WPtel: [address] [place], [place] [phone] [place] LAB 04/11/2016 Patient Education: Patient Medication [...] for migraines 03/12/2016 Appointment: Kristine Brambila WPtel: [address] [place], [place] [phone] 03/12 confirmed-sp FOLLOW UP 03/12/2016 Patient Education: Patient Medication Summary Completed 03/12/2016 Appointment: Kristine Brambila WPtel: [address] [place], [place] [phone] [place] LAB 02/12/2016 Patient Education: Patient Medication Summary Completed 02/12/2016 Appointment: Kristine Brambila WPtel: [address] [place], [place] [phone] [place] LAB 02/01/2016 Patient Education: Patient Medication Summary Completed 02/01/2016 Appointment: Kristine Brambila WPtel: [address] [place], [place] [phone] [place] LAB 01/22/2016 Patient Education: Patient Medication [...] improvement 11/10/2015 Appointment: Julee Slater WPtel: [phone] [facility] ACUTE ILLNESS 11/10/2015 Patient Education: Patient Medication [...] care otherwise 11/09/2015 Appointment: Nayeli Anderson [address] [facility]6676[facility] ACUTE ILLNESS 11/09/2015 Patient Education: Patient Medication Summary Completed 11/09/2015 Referral: Maximiliano Neves WPtel: [phone] [id number] Spoke with Sally at Dr. Ta's offic e. Patient is scheduled for 10/16/15 at 3:15pm. Demographics and notes have been faxed. Patient has been informed. -sp Initi ated 10/16/2015 Visit Plan: Proceed with biopsy/rem oval of right posterior neck node Mammogram ordered--US of right axilla if needed 10/10/2015 Appointment: Krist[facility]ambila [facility]el[facility] [place] 10/08 confirmed ~sl FOLLOW UP 10/10/2015 Patient Education: Patient Medication Summary Completed 10/10/2015 Patient Education: [facility] - Roberto [employer] AutoInj - 18-64 - Dynamic Portal ID Completed 10/10/2015 Care Plan: MAMMOGRAM SCREENING LOINC : 12818-1 Pending 10/10/2015 Visit Plan: Labs ordered - [...] for medical terminology management of pain 10/02/2015 Appointment: Nayeli Anderson [address] [facility]6676[facility] ACUTE ILLNESS 10/02/2015 Patient Education: Patient Medication Summary Completed 10/02/2015 Patient Education: [facility] - Roberto Carlos AutoInj - 18-64 - Dynamic Portal ID Completed 10/02/2015 Care Plan: US EXAM OF HEAD AND NECK Pending 10/02/2015 Appointment: Kristine Brambila WPtel: [phone] [place], [place] [phone] [place] LAB 09/29/2015 Patient Education: Patient Medication Summary Completed 09/29/2015 Appointment: Kristine Brambila [facility]Ptel: [phone] [facility] [place] LAB 07/27/2015 Patient Education: Patient Medication Summary Completed 07/27/2015 Visit Plan: Trial of Savella Did no t tolerate lyrica Did not tolerate cymbalta 07/10/2015 Appointment: Kristine Brambila WPtel: [address] [place], [place] [phone] 07/10 appt confirmed cn FOLLOW UP 07/10/2015 Patient Education: Patient Medication Summary Completed 07/10/2015 Appointment: Kristine Brambila WPtel: [address] [place], [place] [phone] [place] [address] 06/30/2015 Patient Education: Patient Medication Summary Completed 06/30/2015 Visit Plan: Recommended Vitamin E o il topically bid to area of scar. Currently taking Amoxicillin for sinusitis. Recommend Flonase nasal spray 06/27/2015 Visit Plan: Recommended Vitamin E o il topically bid to area of scar. Currently taking Amoxicillin for sinusitis. Recommend Flonase nasal spray 06/27/2015 Appointment: Meli Hatch WPtel: [address] [place], [place] [phone] ACUTE ILLNESS 06/27/2015 Patient Education: Patient Medication Summary Completed 06/27/2015 Appointment: Meli Hatch WPtel: [address] [place], [place] [phone] 06/22/15 appt confirmed and she will drea ng new insurance card cn ACUTE ILLNESS 06/26/2015 Appointment: Kristine Brambila WPtel: [address] [place], [place] [phone] [facility] 06/21/2015 Patient Education: Patient Medication Summary Completed 06/21/2015 Visit Plan: Add cymbalta at 30mg da laurie Repeat PT/INR in 2weeks Recheck 1mo Awaiting ID to reschedule 06/08/2015 Visit Plan: Add cymbalta at 30mg da laurie Repeat PT/INR in 2weeks Recheck 1mo Awaiting ID to reschedule 06/08/2015 Appointment: Kristine Brambila WPtel: [address] [place], [place] [phone] 06/07 lm ~sl 06/08 confirmed ~sl FOLLOW UP 06/08/2015 Patient Education: Patient Medication Summary Completed 06/08/2015 Patient Education: [facility] - Saving AutoInj - Cymbalta - 18-64 - Dynamic Portal ID Completed 06/08/2015 Patient Education: [facility] - Saving AutoInj - 18-64 - Dynamic Portal ID Completed 06/08/2015 Appointment: Kristine Brambila WPtel: [phone] [facility] [place] [facility]2015 Patient Education: Patient Medication Summary Completed 05/31/2015 Visit Plan: Check PT/INR today Stop ped Lyrica due to fluid retention Has appt. scheduled at [facility] with hematology and infectious disease 06/08 Follow-up appt. in 2 weeks following appt. at . 05/24/2015 Visit Plan: Check PT/INR today Stop ped Lyrica due to fluid retention Has appt. scheduled at [facility] with hematology and infectious disease 06/08 Follow-up appt. in 2 weeks following appt. at . 05/24/2015 Appointment: Meli Hatch WPtel: [phone] [facility] NEW PATIENT 05/24/2015 Patient Education: Patient Medication Summary Completed 05/24/2015 Patient Education: [facility] - Saving AutoInj - 18-64 - Dynamic Portal ID Completed 05/24/2015 Referral: Annamarie Melo WPtel: [facility] [address] Referral Initiated Instructions Comment . Rapid [...] to fluid retention Has appt. scheduled at [facility] with hematology and infectious disease 06/08 Follow-up appt. in 2 weeks following appt. at . . Check PT/INR today Stopped Lyrica due to fluid retention Has appt. scheduled at [facility] with hematology and infectious disease [...] with Dr Brambila for next week for fci management of pain . Labs ordered - [...] with Dr Brambila for next week for fci management of pain . Recommended Vitami n [...]
--- OUTSIDE RECORDS SUMMARY | 2020-01-28 13:47 | XMS REPORT | CCD ---
Author Author Heydi Hatch APRN Organization [facility] Address [address] [place] [address] Phone Care Team Providers Care Second Hand Paper Machine Name Role Phone Kristine Brambila D.O., PP Unavailable CCM Unavailable Summary Purpose Interface Exchange Insurance Providers Payer name Policy type / Coverage type Covered democrat ID Effective Begin Date Effective End Date Blue Cross Blue Shield Blue Cross/Bl ue Shield [id number] 2018 Un known Family History Family History data not found Social History Social History Element Codes Description Effective Dates Tobacco history SNOMED CT: [id number] Current every day smoker 06/08/2015 Allergies, Adverse [...] ICD-9: 786.2 ICD-10: R05 Active 07/21/2017 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 ICD-10: [...] 02/10/2017 Unknown Pelvic and perineal pain ICD-9: [id number] ICD-10: R10.2 Active 02/10/2017 Unknown Cervicalgia ICD-9: [...] COUGH ICD-9: 786.2 ICD-10: R05 07/21/2017 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 ICD-10: [...] 02/10/2017 Active Pelvic and perineal pain ICD-9: [id number] ICD-10: R10.2 02/10/2017 Active Cervicalgia ICD-9: 723.1 [...] Date Stop Date Sta tus Fill Instructions acetazolamide 125 mg tablet RxNorm: 693139 1 TABLET(S) PO BID 02/15/2019 04/15/2019 Active cholestyramine (with sugar) 4 gram oral powder RxNorm: 050160 1 UNIT DOSE PO QD 02/15/2019 04/15/2019 Ac tive penicillin V potassi um 500 mg tablet RxNorm: 737490 1 Tablet(s) PO BID 02/10/2019 02/09/2019 In active penicillin V potassi um 500 mg tablet RxNorm: 561087 1 Tablet(s) PO BID 02/10/2019 02/16/2019 In active Diflucan 150 mg tablet RxNorm: 095953 TABLET(S) 1 TABLET(S) PO QW NEEDED 02/08/2019 No Stop Date Active Anusol-HC 25 mg rect al suppository RxNorm: 7724798 1 Suppository RTL QD as needed 02/08/2019 03/09/2019 Ac tive hydrocodone 10 mg-ac etaminophen 325 mg tablet RxNorm: 747513 1 Tablet(s) PO Q4-6H as needed for pain 02/01/2019 No Stop Date Active hydrocodone 10 mg-ac etaminophen 325 mg tablet RxNorm: 689034 1 Tablet(s) PO Q4-6H as needed for pain 02/01/2019 No Stop Date Active Diflucan 150 mg tablet RxNorm: 914662 Tablet(s) TABLET(S) 1 TABLET(S) PO QW NEEDED 01/28/2019 No Stop Date Active Vistaril 25 mg capsule RxNorm: 071427 1 Capsule(s) PO TID 01/27/2019 07/25/2019 Active ProAir HFA 90 mcg/ac tuation aerosol inhaler RxNorm: 057030 2 Puff(s) INH Q4H as needed 01/20/2019 No Stop Date Active Tessalon Perles 100 mg capsule RxNorm: 998863 1 Capsule(s) PO TID a s needed for cough 01/20/2019 No Stop Date Active doxycycline hyclate 100 mg capsule RxNorm: 1673800 1 Capsule(s) PO BID 01/20/2019 01/19/2019 In active doxycycline hyclate 100 mg capsule RxNorm: 4019038 1 Capsule(s) PO BID 01/20/2019 01/26/2019 In active Coumadin 5 mg tablet RxNorm: 801661 1 Tablet(s) PO QD (on Fri, , Fri, , Fri and Fri) 01/05/2019 06/09/2019 Active Generic For:COUMADIN 5MG TAB 05/25/2018 3:20:45 PM N O T I C E Last quantity doesn't match original quantity amoxicillin 500 mg c apsule RxNorm: 809792 1 Capsule(s) PO BID 01/05/2019 01/14/2019 Inactive amoxicillin 500 mg c apsule RxNorm: 712638 1 Capsule(s) PO BID 01/05/2019 01/04/2019 Inactive hydrocodone 10 mg-ac etaminophen 325 mg tablet RxNorm: 892378 1 Tablet(s) PO Q4-6H as needed for pain 01/01/2019 01/31/2019 Inactive cyclobenzaprine 10 m g tablet RxNorm: 604341 1 TABLET(S) PO QD NEEDED 12/23/2018 06/20/2019 Ac tive Coumadin 5 mg tablet RxNorm: 871485 Tablet(s) TAKE 1 TABLET(S) BY MOUTH FRI, FRI, FRI, Friday12/23/2018 01/04/2019 Inactive Generic For:COUMADIN 5MG TA B 05/25/2018 3:20:45 PM N O T I C E Last quantity doesn't match original quantity Diflucan 150 mg tablet RxNorm: 548400 Tablet(s) TABLET(S) 1 TABLET(S) PO QW NEEDED 12/23/2018 01/27/2019 Inactive Vitamin D2 50,000 un it capsule RxNorm: 3936518 1 Capsule(s) PO QW 12/04/2018 03/03/2019 Active Medrol (Juan Francisco) 4 mg ta blets in a dose pack RxNorm: 703337 Tablet(s) PO as direc liane 12/04/2018 12/03/2018 In active Vitamin D2 50,000 un it capsule RxNorm: 3147462 1 Capsule(s) PO QW 12/04/2018 12/03/2018 Inactive Medrol (Juan Francisco) 4 mg ta blets in a dose pack RxNorm: 415331 Tablet(s) PO as direc liane 12/04/2018 01/19/2019 In active Zithromax Z-Juan Francisco 250 mg tablet RxNorm: 033094 Tablet(s) PO take as directed 12/02/2018 No Stop Date Active Vistaril 25 mg capsule RxNorm: 013403 Capsule(s) 1 Capsule(s) PO TID as needed for anxiety 11/30/2018 02/27/2019 Active Coumadin 5 mg tablet RxNorm: 933077 Tablet(s) TAKE 1 TABLET(S) BY MOUTH FRI, FRI, FRI, Friday11/30/2018 12/22/2018 Inactive Generic For:COUMADIN 5MG TA B 05/25/2018 3:20:45 PM N O T I C E Last quantity doesn't match original quantity Diflucan 150 mg tablet RxNorm: 558013 Tablet(s) TABLET(S) 1 TABLET(S) PO QW NEEDED 11/26/2018 12/22/2018 Inactive cholestyramine (with sugar) 4 gram oral powder RxNorm: 162849 1 UNIT DOSE PO QD 11/24/2018 02/14/2019 In active acetazolamide 125 mg tablet RxNorm: 314340 1 Tablet(s) PO BID 11/24/2018 02/14/2019 Inactive cyclobenzaprine 10 m g tablet RxNorm: 172051 1 Tablet(s) PO QD as needed 11/17/2018 12/22/2018 In active hydrocodone 10 mg-ac etaminophen 325 mg tablet RxNorm: 969937 1 Tablet(s) PO Q4-6H as needed for pain 11/05/2018 01/31/2019 Inactive acetazolamide 125 mg tablet RxNorm: 323550 1 TABLET(S) PO BID 10/26/2018 11/23/2018 Inactive cholestyramine (with sugar) 4 gram oral powder RxNorm: 711553 1 UNIT DOSE PO QD 10/26/2018 11/23/2018 In active Coumadin 5 mg tablet RxNorm: 470839 TAKE 1 TABLET(S) BY MOUTH FRI, FRI, FRI, Friday10/26/2018 11/29/2018 Inactive Generic For:COUMADIN 5MG TAB 05/25/2018 3:20:45 PM N O T I C E Last quantity doesn't match original quantity Diflucan 150 mg tablet RxNorm: 283051 TABLET(S) 1 TABLET(S) PO QW NEEDED 10/26/2018 11/25/2018 In active hydrocodone 10 mg-ac etaminophen 325 mg tablet RxNorm: 702625 1 Tablet(s) PO Q4-6H as needed for pain 10/08/2018 11/04/2018 Inactive acetazolamide 125 mg tablet RxNorm: 774567 1 Tablet(s) PO BID 09/24/2018 10/23/2018 Inactive Coumadin 5 mg tablet RxNorm: 953990 TAKE 1 TABLET(S) BY MOUTH FRI, FRI, FRI, Friday09/24/2018 10/25/2018 Inactive Generic For:COUMADIN 5MG TAB 05/25/2018 3:20:45 PM N O T I C E Last quantity doesn't match original quantity Diflucan 150 mg tablet RxNorm: 170184 Tablet(s) 1 Tablet(s) PO QW as needed 09/24/2018 10/25/2018 In active cyclobenzaprine 10 m g tablet RxNorm: 578397 1 Tablet(s) PO QD as needed 09/24/2018 11/16/2018 In active Vistaril 25 mg capsule RxNorm: 413040 1 Capsule(s) PO TID as needed for anxiet y 09/24/2018 11/29/2018 In active cholestyramine (with sugar) 4 gram oral powder RxNorm: 975274 1 Unit Dose PO QD 09/24/2018 10/23/2018 In active Pyridium 200 mg tablet RxNorm: 8893839 1 Tablet(s) PO TID 09/10/2018 09/19/2018 Inactive Pyridium 200 mg tablet RxNorm: 4088761 1 Tablet(s) PO TID 09/10/2018 09/09/2018 Inactive hydrocodone 10 mg-ac etaminophen 325 mg tablet RxNorm: 497643 1 Tablet(s) PO Q4-6H as needed for pain 09/08/2018 10/07/2018 Inactive cefdinir 300 mg capsule RxNorm: 054460 1 Capsule(s) PO BID 09/08/2018 09/21/2018 Inactive hydrocodone 10 mg-ac etaminophen 325 mg tablet RxNorm: 588974 1 Tablet(s) PO Q4-6H as needed for pain 08/13/2018 09/07/2018 Inactive cyclobenzaprine 10 m g tablet RxNorm: 174362 1 Tablet(s) PO QD as needed 07/23/2018 09/23/2018 In active Diflucan 150 mg tablet RxNorm: 249835 Tablet(s) 1 Tablet(s) PO QW as needed 07/23/2018 09/23/2018 In active Ciprodex 0.3 %-0.1 % ear drops,suspension RxNorm: 844712 4 Drop(s) left otic ( ear) BID 07/23/2018 07/29/2018 Inactive hydrocodone 10 mg-ac etaminophen 325 mg tablet RxNorm: 775697 1 Tablet(s) PO Q4-6H as needed for pain 07/16/2018 08/12/2018 Inactive penicillin V potassi um 500 mg tablet RxNorm: 248862 1 Tablet(s) PO Q6H 07/08/2018 07/17/2018 In active cyclobenzaprine 10 m g tablet RxNorm: 933084 1 Tablet(s) PO QD as needed 06/22/2018 07/22/2018 In active Vistaril 25 mg capsule RxNorm: 293360 1 Capsule(s) PO TID as needed for anxiet y 06/22/2018 09/23/2018 In active cholestyramine (with sugar) 4 gram oral powder RxNorm: 205622 1 Unit Dose PO QD 06/22/2018 09/23/2018 In active hydrocodone 10 mg-ac etaminophen 325 mg tablet RxNorm: 040994 1 Tablet(s) PO Q4-6H as needed for pain 06/17/2018 07/15/2018 Inactive cefdinir 300 mg capsule RxNorm: 193570 1 Capsule(s) PO BID 06/02/2018 06/11/2018 Inactive Diflucan 150 mg tablet RxNorm: 934684 Tablet(s) 1 Tablet(s) PO QW as needed 06/02/2018 07/22/2018 In active Coumadin 5 mg tablet RxNorm: 777241 TAKE 1 TABLET(S) BY MOUTH FRI, FRI, FRI, Friday05/25/2018 07/15/2018 Inactive Generic For:COUMADIN 5MG TAB 05/25/2018 3:20:45 PM N O T I C E Last quantity doesn't match original quantity Imitrex 50 mg tablet RxNorm: 406952 Tablet(s) 1 Tablet(s) PO at headache. re peat in 2 hours if no relief. no more than 2 tabs per day 05/19/2018 No Stop Date Active cholestyramine (with sugar) 4 gram oral powder RxNorm: 974934 1 Unit Dose PO QD 05/19/2018 11/14/2018 In active Vistaril 25 mg capsule RxNorm: 639538 1 Capsule(s) PO TID 05/19/2018 11/14/2018 Inactive Coumadin 5 mg tablet RxNorm: 384744 Tablet(s) TAKE 1 TABLET(S) BY MOUTH FRI, FRI, FRI, Friday05/19/2018 05/24/2018 Inactive Generic For:COUMADIN 5MG TA B N O T I C E Last quantity doesn't match original quantity acetazolamide 125 mg tablet RxNorm: 905634 1 Tablet(s) PO BID 05/19/2018 09/23/2018 Inactive cyclobenzaprine 10 m g tablet RxNorm: 457930 1 Tablet(s) PO QD as needed 05/19/2018 11/17/2018 In active Coumadin 7.5 mg tablet RxNorm: 228849 1 Tablet(s) PO QD , , 05/19/2018 01/04/2019 In active ketorolac 10 mg tablet RxNorm: 234316 1 Tablet(s) PO QHS as needed 05/11/2018 No Stop Date Active promethazine 12.5 mg tablet RxNorm: 137166 1 Tablet(s) PO Q6H as needed 04/23/2018 04/22/2018 In active acetazolamide 125 mg tablet RxNorm: 566670 1 Tablet(s) PO BID 04/23/2018 05/18/2018 Inactive Coumadin 5 mg tablet RxNorm: 771498 TAKE 1 TABLET(S) BY MOUTH FRI, FRI, FRI, Friday04/23/2018 05/18/2018 Inactive Generic For:COUMADIN 5MG TAB N O T I C E Last quantity doesn't match original quantity Imitrex 50 mg tablet RxNorm: 987433 1 Tablet(s) PO at headache. repeat in 2 hours if no relief. no more than 2 tabs per day 04/23/2018 05/18/2018 Inactive cyclobenzaprine 10 m g tablet RxNorm: 978319 1 Tablet(s) PO QD as needed 04/23/2018 05/18/2018 In active clindamycin HCl 300 mg capsule RxNorm: 302144 1 Capsule(s) PO TID 04/02/2018 04/11/2018 Inactive hydrocodone 10 mg-ac etaminophen 325 mg tablet RxNorm: 642807 1 Tablet(s) PO Q4-6H as needed for pain 03/24/2018 06/16/2018 Inactive promethazine 12.5 mg tablet RxNorm: 617353 1 Tablet(s) PO Q6H 03/23/2018 04/23/2018 Inactive Imitrex 50 mg tablet RxNorm: 906213 1 Tablet(s) PO at headache. repeat in 2 hours if no relief. no more than 2 tabs per day 03/23/2018 04/22/2018 Inactive Diflucan 150 mg tablet RxNorm: 938890 1 Tablet(s) PO QW as needed 03/23/2018 06/01/2018 Inactive Coumadin 5 mg tablet RxNorm: 505568 Tablet(s) 1 Tablet(s) PO Mon, Fri, Fri, Sun 03/23/2018 04/22/2018 In active Imitrex 100 mg tablet RxNorm: 110254 Tablet(s) PO take one tablet at sign of headache and repeat in 2 hours if ineffective 03/16/2018 04/01/2018 Inactive ondansetron HCl 4 mg tablet RxNorm: 383639 1 Tablet(s) PO Q4H as needed for nausea 02/24/2018 04/01/2018 In active hydrocodone 10 mg-ac etaminophen 325 mg tablet RxNorm: 249112 1 Tablet(s) PO Q4-6H as needed for pain 02/24/2018 03/23/2018 Inactive Coumadin 5 mg tablet RxNorm: 238960 Tablet(s) 1 Tablet(s) PO Mon, Wed, Fri, Sun 02/20/2018 03/22/2018 In active promethazine 12.5 mg tablet RxNorm: 029498 1 Tablet(s) PO Q6H 02/20/2018 03/22/2018 Inactive Pepcid 40 mg tablet RxNorm: 748176 1 Tablet(s) PO BID for stomach 02/16/2018 03/17/2018 In active Flagyl 500 mg tablet RxNorm: 843494 1 Tablet(s) PO TID 02/16/2018 02/25/2018 Inactive Imitrex 50 mg tablet RxNorm: 081522 1 Tablet(s) PO at headache. repeat in 2 hours if no relief. no more than 2 tabs per day 01/27/2018 03/15/2018 Inactive Coumadin 5 mg tablet RxNorm: 318827 1 Tablet(s) PO Mon, Wed, Fri, Sun 01/27/2018 02/20/2018 In active amoxicillin 875 mg t ablet RxNorm: 154068 1 Tablet(s) PO BID 01/26/2018 02/04/2018 Inactive Imitrex 50 mg tablet RxNorm: 894635 1 Tablet(s) PO at headache. repeat in 2 hours if no relief. no more than 2 tabs per day 01/26/2018 03/22/2018 Inactive cyclobenzaprine 10 m g tablet RxNorm: 373664 1 Tablet(s) PO QD as needed 01/23/2018 03/23/2018 In active promethazine 12.5 mg tablet RxNorm: 345803 1 Tablet(s) PO Q6H 01/23/2018 02/19/2018 Inactive Diflucan 150 mg tablet RxNorm: 276004 1 Tablet(s) PO QW as needed 01/22/2018 03/22/2018 Inactive acetazolamide 125 mg tablet RxNorm: 010920 1 Tablet(s) PO BID 01/22/2018 04/21/2018 Inactive Imitrex 50 mg tablet RxNorm: 252145 1 Tablet(s) PO at headache. repeat in 2 hours if no relief. no more than 2 tabs per day 01/02/2018 01/25/2018 Inactive Ciprodex 0.3 %-0.1 % ear drops,suspension RxNorm: 296374 4 Drop(s) otic (ear) BID 01/01/2018 01/07/2018 In active Coumadin 7.5 mg tablet RxNorm: 503109 1 Tablet(s) PO QD , Th, 12/29/2017 05/18/2018 In active Coumadin 5 mg tablet RxNorm: 411177 1 Tablet(s) PO Mon, Wed, Fri, Sun 12/29/2017 01/26/2018 In active cyclobenzaprine 10 m g tablet RxNorm: 646460 1 Tablet(s) PO QD as needed 12/29/2017 01/22/2018 In active clindamycin HCl 300 mg capsule RxNorm: 366937 1 Capsule(s) PO TID 12/26/2017 12/25/2017 Inactive Imitrex 50 mg tablet RxNorm: 083463 1 Tablet(s) PO at headache. repeat in 2 hours if no relief. no more than 2 tabs per day 12/26/2017 01/01/2018 Inactive clindamycin HCl 300 mg capsule RxNorm: 259438 1 Capsule(s) PO TID 12/26/2017 01/04/2018 Inactive Zithromax Z-Juan Francisco 250 mg tablet RxNorm: 788723 Tablet(s) PO take as directed 12/25/2017 12/25/2017 In active promethazine 12.5 mg tablet RxNorm: 863023 1 Tablet(s) PO Q6H 12/25/2017 01/22/2018 Inactive clindamycin HCl 300 mg capsule RxNorm: 123512 1 Capsule(s) PO TID 12/11/2017 12/17/2017 Inactive Vistaril 25 mg capsule RxNorm: 420874 1 Capsule(s) PO TID as needed for anxiet y 12/04/2017 05/18/2018 In active cholestyramine (with sugar) 4 gram oral powder RxNorm: 897443 1 Unit Dose PO QD 12/04/2017 05/18/2018 In active Coumadin 7.5 mg tablet RxNorm: 432131 1 Tablet(s) PO QD 12/04/2017 12/28/2017 Inactive Coumadin 5 mg tablet RxNorm: 052932 1 Tablet(s) PO Friday through Friday12/04/2017 12/28/2017 In active hydrocodone 10 mg-ac etaminophen 325 mg tablet RxNorm: 151120 1 Tablet(s) PO Q4-6H as needed for pain 12/01/2017 02/23/2018 Inactive hydrocodone 10 mg-ac etaminophen 325 mg tablet RxNorm: 030879 1 Tablet(s) PO Q4-6H as needed for pain 11/03/2017 11/30/2017 Inactive cyclobenzaprine 10 m g tablet RxNorm: 960731 1 Tablet(s) PO QD as needed 10/30/2017 12/28/2017 In active cholestyramine (with sugar) 4 gram oral powder RxNorm: 888912 1 Unit Dose PO QD 10/30/2017 11/28/2017 In active amoxicillin 875 mg t ablet RxNorm: 327557 1 Tablet(s) PO BID 10/08/2017 10/07/2017 Inactive amoxicillin 875 mg t ablet RxNorm: 285259 1 Tablet(s) PO BID 10/08/2017 10/17/2017 Inactive penicillin V potassi um 500 mg tablet RxNorm: 954015 1 Tablet(s) PO BID 10/06/2017 10/07/2017 In active hydrocodone 10 mg-ac etaminophen 325 mg tablet RxNorm: 776110 1 Tablet(s) PO Q4-6H as needed for pain 10/06/2017 11/02/2017 Inactive hydrocodone 10 mg-ac etaminophen 325 mg tablet RxNorm: 014973 1 Tablet(s) PO Q4-6H as needed for pain 10/06/2017 12/31/2018 Inactive Vigamox 0.5 % eye drops RxNorm: 279633 1 Drop(s) ophthalmic (eye) TID ONLY ADMI NISTER IF INFECTION 10/03/2017 10/02/2017 Inactive Vigamox 0.5 % eye drops RxNorm: 190513 1 Drop(s) ophthalmic (eye) TID ONLY ADMI NISTER IF INFECTION 10/03/2017 10/09/2017 Inactive cholestyramine (with sugar) 4 gram oral powder RxNorm: 631134 1 Unit Dose PO QD 09/23/2017 10/30/2017 In active acetazolamide 125 mg tablet RxNorm: 677040 1 Tablet(s) PO BID 09/23/2017 12/21/2017 Inactive Coumadin 5 mg tablet RxNorm: 875609 1 Tablet(s) PO QD FRIDAY THROUGH Friday09/17/2017 11/04/2017 In active mupirocin 2 % topica l ointment RxNorm: 234125 1 Application TOP TID 09/10/2017 11/04/2017 Inactive hydrocodone 10 mg-ac etaminophen 325 mg tablet RxNorm: 472632 1 Tablet(s) PO Q4-6H as needed for pain 09/08/2017 10/05/2017 Inactive Questran 4 gram powd er for susp in a packet RxNorm: 553419 MIX ONE PACKET IN 6 O UNCES OF APPLE SAUCE OR OTHER SOFT FOOD AND EAT ONCE DAILY 09/02/2017 11/04/2017 Inactive Diflucan 150 mg tablet RxNorm: 890140 1 Tablet(s) PO QW as needed 08/14/2017 01/21/2018 Inactive hydrocodone 10 mg-ac etaminophen 325 mg tablet RxNorm: 511439 1 Tablet(s) PO Q4-6H as needed for pain 08/11/2017 09/07/2017 Inactive Tamiflu 75 mg capsule RxNorm: 836545 1 Capsule(s) PO QD 08/11/2017 08/10/2017 Inactive Tamiflu 75 mg capsule RxNorm: 724032 1 Capsule(s) PO QD 08/11/2017 08/20/2017 Inactive Coumadin 5 mg tablet RxNorm: 499411 1 Tablet(s) PO QD FRIDAY THROUGH Friday07/22/2017 09/16/2017 In active Coumadin 5 mg tablet RxNorm: 895610 TAKE ONE TABLET BY MOUTH ONCE DAILY THROUGH Friday07/16/2017 07/21/2017 Inactive cyclobenzaprine 10 m g tablet RxNorm: 619228 1 Tablet(s) PO QD as needed 07/15/2017 10/30/2017 In active hydrocodone 10 mg-ac etaminophen 325 mg tablet RxNorm: 874834 1 Tablet(s) PO Q4-6H as needed for pain 07/14/2017 08/10/2017 Inactive warfarin 5 mg tablet RxNorm: 173689 1 Tablet(s) PO Fri Slick ford is due for PT/INR 06/18/2017 07/15/2017 Inactive Questran Light 4 gra m powder for susp in a packet RxNorm: 1821563 1 PO QD 06/18/2017 11/04/2017 In active cyclobenzaprine 10 m g tablet RxNorm: 390992 1 Tablet(s) PO QD as needed 06/18/2017 07/14/2017 In active hydrocodone 10 mg-ac etaminophen 325 mg tablet RxNorm: 490441 1 Tablet(s) PO Q4-6H as needed for pain 06/18/2017 07/13/2017 Inactive Lunesta 1 mg tablet RxNorm: 936392 1 Tablet(s) PO QHS as needed 05/27/2017 06/25/2017 Inactive Zithromax Z-Juan Francisco 250 mg tablet RxNorm: 216271 1 Tablet(s) PO Take a s directed 05/27/2017 11/04/2017 In active ProAir HFA 90 mcg/ac tuation aerosol inhaler RxNorm: 441416 2 Puff(s) INH Q4H 05/27/2017 01/19/2019 In active ProAir HFA 90 mcg/ac tuation aerosol inhaler RxNorm: 602894 2 Puff(s) INH Q4H 05/27/2017 05/26/2017 In active promethazine 6.25 mg -codeine 10 mg/5 mL syrup RxNorm: 689829 5 Milliliter(s) PO Q4 H as needed 05/27/2017 11/04/2017 Inactive Diflucan 150 mg tablet RxNorm: 733061 1 Tablet(s) PO QW as needed 05/26/2017 05/25/2017 Inactive cyclobenzaprine 10 m g tablet RxNorm: 705163 1 Tablet(s) PO QD as needed 05/20/2017 06/18/2017 In active Lunesta 2 mg tablet RxNorm: 196241 1 Tablet(s) PO QHS 05/20/2017 05/27/2017 Inactive Zithromax Z-Juan Francisco 250 mg tablet RxNorm: 717900 Tablet(s) PO As Direc liane 05/12/2017 05/19/2017 In active cyclobenzaprine 5 mg tablet RxNorm: 111641 1 Tablet(s) PO QPM 03/28/2017 05/19/2017 Inactive Vistaril 25 mg capsule RxNorm: 457146 1 Capsule(s) PO TID as needed for anxiet y 03/28/2017 09/23/2017 In active Questran 4 gram powd er for susp in a packet RxNorm: 643628 1 Unit(s) PO QD 03/06/2017 06/18/2017 In active Cipro 500 mg tablet RxNorm: 313506 1 Tablet(s) PO BID 02/27/2017 02/26/2017 Inactive Pyridium 200 mg tablet RxNorm: 3867160 1 Tablet(s) PO TID for bladder spasms 02/27/2017 03/31/2017 In active Cipro 500 mg tablet RxNorm: 366830 1 Tablet(s) PO BID 02/27/2017 03/05/2017 Inactive Levsin 0.125 mg tablet RxNorm: 9248866 1 Tablet(s) PO QID as needed for spasm 02/25/2017 11/04/2017 In active tamsulosin 0.4 mg ca psule RxNorm: 370334 1 Capsule(s) PO QPM 02/25/2017 03/26/2017 Inactive tamsulosin 0.4 mg ca psule RxNorm: 926799 1 Capsule(s) PO QPM 02/25/2017 02/24/2017 Inactive Pyridium 100 mg tablet RxNorm: 6271482 1 Tablet(s) PO TID as needed 02/21/2017 03/31/2017 In active acetazolamide 125 mg tablet RxNorm: 429717 1 Tablet(s) PO BID 02/07/2017 09/23/2017 Inactive Questran 4 gram powd er for susp in a packet RxNorm: 477240 1 Unit(s) PO QD 02/06/2017 03/06/2017 In active cyclobenzaprine 5 mg tablet RxNorm: 141018 1 Tablet(s) PO QPM 02/05/2017 03/27/2017 Inactive BuSpar 5 mg tablet RxNorm: 712173 1 Tablet(s) PO BID 02/03/2017 03/31/2017 Inactive Diflucan 150 mg tablet RxNorm: 480403 1 Tablet(s) PO QW as needed 01/15/2017 05/26/2017 Inactive Valtrex 1 gram tablet RxNorm: 431016 1 Tablet(s) PO TID 01/13/2017 01/19/2017 Inactive Vistaril 25 mg capsule RxNorm: 839857 1 Capsule(s) PO TID as needed for anxiet y 01/13/2017 03/27/2017 In active hydrocodone 10 mg-ac etaminophen 325 mg tablet RxNorm: 762524 1 Tablet(s) PO Q4-6H as needed for pain 01/13/2017 06/17/2017 Inactive Questran 4 gram powd er for susp in a packet RxNorm: 961319 1 Unit(s) PO QD 01/13/2017 09/23/2017 In active acetazolamide 125 mg tablet RxNorm: 349732 1 Tablet(s) PO BID 01/13/2017 02/06/2017 Inactive methotrexate (PF) 20 mg/0.4 mL subcutaneous auto-injector RxNorm: 9039991 Milliliter(s) SQ QW 12/26/2016 01/05/2017 Inactive Compazine 10 mg tablet RxNorm: 545541 1 Tablet(s) PO TID as needed for nausea 12/18/2016 11/04/2017 In active hydrocodone 10 mg-ac etaminophen 325 mg tablet RxNorm: 292372 1 Tablet(s) PO Q4-6H as needed for pain 12/17/2016 01/12/2017 Inactive Questran 4 gram powd er for susp in a packet RxNorm: 884336 1 Unit(s) PO QD 12/17/2016 01/13/2017 In active cyclobenzaprine 5 mg tablet RxNorm: 489168 1 Tablet(s) PO QPM 12/17/2016 02/05/2017 Inactive Questran Light 4 gra m powder for susp in a packet RxNorm: 7983115 1 PO QD 11/29/2016 06/17/2017 In active Zofran ODT 4 mg disi ntegrating tablet RxNorm: 963898 1 Tablet(s) PO Q4H as needed for nausea 11/29/2016 12/17/2016 Inactive methotrexate sodium 2.5 mg tablet RxNorm: 952363 4 Tablet(s) PO week 1 then 5 tablets po week 2 then 6 tablets weekly 11/27/2016 12/25/2016 Inactive warfarin 7.5 mg tablet RxNorm: 259555 1 Tablet(s) PO three times weekly 11/14/2016 03/31/2017 In active warfarin 7.5 mg tablet RxNorm: 099728 1 Tablet(s) PO three times weekly 11/13/2016 11/13/2016 In active Diflucan 150 mg tablet RxNorm: 499333 1 Tablet(s) PO QW as needed 11/05/2016 01/14/2017 Inactive Vistaril 25 mg capsule RxNorm: 745698 1 Capsule(s) PO TID as needed for anxiet y 11/04/2016 11/03/2016 In active Coumadin 5 mg tablet RxNorm: 147681 1 Tablet(s) PO Friday through Friday11/04/2016 06/18/2017 In active acetazolamide 125 mg tablet RxNorm: 548172 1 Tablet(s) PO BID 11/04/2016 01/13/2017 Inactive sumatriptan 100 mg t ablet RxNorm: 833008 1 Tablet(s) PO at hea dache onset. May repeat in 2 hours if headache remains 11/04/2016 11/04/2017 Inactive Vistaril 25 mg capsule RxNorm: 529683 1 Capsule(s) PO TID as needed for anxiet y 11/04/2016 01/12/2017 In active hydrocodone 10 mg-ac etaminophen 325 mg tablet RxNorm: 784652 1 Tablet(s) PO Q4-6H as needed for pain 11/04/2016 12/16/2016 Inactive Coumadin 5 mg tablet RxNorm: 429534 TAKE ONE TABLET BY MOUTH ON SUN., MON., WED., AND FRI., AND TAKE ONE AND ONE-HALF TABLETS TUE., TH., AND 10/16/2016 10/25/2016 In active Coumadin 5 mg tablet RxNorm: 621058 1 Tablet(s) PO Friday through Friday10/15/2016 11/03/2016 In active hydrocodone 10 mg-ac etaminophen 325 mg tablet RxNorm: 895754 1 Tablet(s) PO Q4-6H as needed for pain 10/14/2016 11/03/2016 Inactive hydrocodone 10 mg-ac etaminophen 325 mg tablet RxNorm: 858228 1 Tablet(s) PO Q4-6H as needed for pain 09/20/2016 10/13/2016 Inactive warfarin 7.5 mg tablet RxNorm: 444621 1 Tablet(s) PO three times weekly 09/20/2016 11/12/2016 In active Diflucan 150 mg tablet RxNorm: 715156 1 Tablet(s) PO QW as needed 08/20/2016 11/04/2016 Inactive acetazolamide 125 mg tablet RxNorm: 741806 1 Tablet(s) PO BID 08/20/2016 11/04/2016 Inactive Diflucan 150 mg tablet RxNorm: 434341 1 Tablet(s) PO QW as needed 08/20/2016 08/19/2016 Inactive Vistaril 25 mg capsule RxNorm: 617061 Capsule(s) TAKE ONE CAPSULE BY MOUTH THR EE TIMES DAILY NEEDED FOR ANXIETY 08/19/2016 11/04/2016 Inactive hydrocodone 10 mg-ac etaminophen 325 mg tablet RxNorm: 635414 1 Tablet(s) PO Q4-6H as needed for pain 08/05/2016 09/19/2016 Inactive Diflucan 150 mg tablet RxNorm: 803364 1 Tablet(s) PO QW as needed 07/19/2016 08/19/2016 Inactive tizanidine 4 mg tablet RxNorm: 961015 1-2 Tablet(s) PO QHS as needed for muscl e spasm and sleep 06/03/2016 06/10/2016 Inactive Questran Light 4 gra m powder for susp in a packet RxNorm: 7371118 1 PO QD 05/14/2016 08/11/2016 In active Macrobid 100 mg capsule RxNorm: 105495 1 Capsule(s) PO BID 04/23/2016 05/02/2016 Inactive mupirocin 2 % topica l ointment RxNorm: 016311 Apply topically to af fected area 2-3 times daily 04/17/2016 07/07/2016 Inactive Vistaril 25 mg capsule RxNorm: 565212 TAKE ONE CAPSULE BY MOUTH THREE TIMES DA LOLI NEEDED FOR ANXIETY 04/17/2016 11/04/2016 Inactive Diflucan 150 mg tablet RxNorm: 249285 1 Tablet(s) PO QW as needed 04/16/2016 07/18/2016 Inactive cyclobenzaprine 5 mg tablet RxNorm: 016098 TAKE ONE TABLET BY [facility] ONCE DAILY IN THE EVENING 03/25/2016 12/17/2016 Inactive Pyridium 100 mg tablet RxNorm: 4982627 1 Tablet(s) PO TID as needed 03/20/2016 03/19/2016 In active Diflucan 150 mg tablet RxNorm: 070095 1 Tablet(s) PO QW as needed 03/20/2016 04/15/2016 Inactive Pyridium 100 mg tablet RxNorm: 9027027 1 Tablet(s) PO TID as needed 03/20/2016 08/26/2016 In active Diflucan 150 mg tablet RxNorm: 528666 1 Tablet(s) PO QW as needed 03/19/2016 03/19/2016 Inactive Coumadin 7.5 mg tablet RxNorm: 383258 1 Tablet(s) PO QD 03/14/2016 05/12/2016 Inactive acetazolamide 125 mg tablet RxNorm: 083641 1 Tablet(s) PO BID 02/28/2016 08/20/2016 Inactive Coumadin 5 mg tablet RxNorm: 641211 1 TABLET(S) PO QD THREE TIMES A WEEK AND 1 1/2 TAB (7.5MG) FOUR TIMES A WEEK 02/28/2016 03/13/2016 Inactive Questran Light 4 gra m powder for susp in a packet RxNorm: 2132187 1 PO QD 02/13/2016 05/12/2016 In active Diflucan 150 mg tablet RxNorm: 055669 1 Tablet(s) PO QW as needed 01/19/2016 03/11/2016 Inactive Diflucan 150 mg tablet RxNorm: 492339 1 Tablet(s) PO QW as needed 01/18/2016 01/18/2016 Inactive promethazine 25 mg t ablet RxNorm: 516652 1 Tablet(s) PO Q4H as needed for nausea 12/05/2015 12/17/2016 In active Imitrex 100 mg tablet RxNorm: 653427 1 Tablet(s) PO at headache onset and may repeat in 2 hours if needed 12/05/2015 03/31/2017 Inactive Diflucan 150 mg tablet RxNorm: 275546 1 Tablet(s) PO QW as needed 11/24/2015 01/17/2016 Inactive Diflucan 150 mg tablet RxNorm: 644898 1 Tablet(s) PO QW as needed 11/21/2015 11/23/2015 Inactive Coumadin 5 mg tablet RxNorm: 644501 1 Tablet(s) PO QD three times a week and 1 1/2 tab (7.5mg) four times a week 11/13/2015 02/01/2016 Inactive Questran Light 4 gra m powder for susp in a packet RxNorm: 937245 1 PO QD 11/13/2015 02/10/2016 In active acetazolamide 125 mg tablet RxNorm: 817839 1 Tablet(s) PO BID 11/13/2015 02/10/2016 Inactive amoxicillin 875 mg t ablet RxNorm: 344998 1 Tablet(s) PO BID 11/09/2015 11/18/2015 Inactive Coumadin 7.5 mg tablet RxNorm: 229489 1 Tablet(s) PO on and 10/26/2015 10/25/2015 In active Coumadin 7.5 mg tablet RxNorm: 804387 1 Tablet(s) PO on and 10/26/2015 11/12/2015 In active Coumadin 5 mg tablet RxNorm: 193498 1 Tablet(s) PO Friday, Friday, Friday and Friday. 1.5 tablets Friday, and Friday. 10/26/2015 10/25/2015 Inactive Coumadin 5 mg tablet RxNorm: 957497 1 Tablet(s) PO Friday, Friday, Friday , and Friday. Take 1 1/2 on Friday, and Friday10/26/2015 11/12/2015 Inactive Coumadin 7.5 mg tablet RxNorm: 115383 1 Tablet(s) PO on and 10/26/2015 10/26/2015 In active Coumadin 5 mg tablet RxNorm: 920438 1 Tablet(s) PO Friday, Friday, Friday and Friday. 1.5 tablets Friday, and Friday. 10/26/2015 02/14/2016 Inactive Vistaril 25 mg capsule RxNorm: 694143 1 Capsule(s) PO TID as needed for anxiet y 10/10/2015 04/06/2016 In active cyclobenzaprine 5 mg tablet RxNorm: 514506 1 Tablet(s) PO QPM 10/10/2015 03/24/2016 Inactive Vistaril 25 mg capsule RxNorm: 053947 1 Capsule(s) PO TID as needed for anxiet y 10/10/2015 10/09/2015 In active cyclobenzaprine 5 mg tablet RxNorm: 109988 1 Tablet(s) PO QPM 10/10/2015 10/09/2015 Inactive Coumadin 5 mg tablet RxNorm: 232124 1 Tablet(s) PO Friday, Friday, Friday and Friday. 1.5 tablets Friday, and Friday. 10/02/2015 10/01/2015 Inactive Coumadin 5 mg tablet RxNorm: 431792 1 Tablet(s) PO Friday, Friday, Friday and Friday. 1.5 tablets Friday, and Friday. 10/02/2015 10/25/2015 Inactive amoxicillin 500 mg t ablet RxNorm: 422310 1 Tablet(s) PO TID 10/02/2015 10/11/2015 Inactive hydrocodone 10 mg-ac etaminophen 325 mg tablet RxNorm: 300311 1 Tablet(s) PO Q4-6H as needed for pain 10/02/2015 08/04/2016 Inactive Diflucan 150 mg tablet RxNorm: 851819 1 Tablet(s) PO QW as needed 10/02/2015 10/01/2015 Inactive amoxicillin 500 mg t ablet RxNorm: 424820 1 Tablet(s) PO TID 10/02/2015 10/01/2015 Inactive Diflucan 150 mg tablet RxNorm: 577647 1 Tablet(s) PO QW as needed 10/02/2015 10/09/2015 Inactive Coumadin 5 mg tablet RxNorm: 865803 1 Tablet(s) PO Mon.,Wed.,Fri., Sat. and Sun. 09/14/2015 10/01/2015 Inactive acetazolamide 125 mg tablet RxNorm: 141633 1 Tablet(s) PO BID 09/14/2015 11/12/2015 Inactive hydrocodone 10 mg-ac etaminophen 325 mg tablet RxNorm: 934454 1 Tablet(s) PO Q4-6H as needed for pain 09/01/2015 10/01/2015 Inactive Vistaril 25 mg capsule RxNorm: 161667 1 Capsule(s) PO TID as needed for anxiet y 08/24/2015 09/22/2015 In active baclofen 10 mg tablet RxNorm: 089255 1/2 Tablet(s) PO QAM and 1 tablet at bed time 07/27/2015 10/09/2015 Inactive Vistaril 25 mg capsule RxNorm: 683300 1 Capsule(s) PO BID 07/24/2015 08/22/2015 Inactive Savella 12.5 mg (5)- 25 mg(8)-50mg(42) tablets in a dose pack RxNorm: 255522 Tablet(s) PO as directed 07/10/2015 07/26/2015 Inactive hydrocodone 10 mg-ac etaminophen 325 mg tablet RxNorm: 298648 1 Tablet(s) PO Q6H as needed for pain 06/29/2015 08/10/2015 Inactive Coumadin 7.5 mg tablet RxNorm: 287412 1 Tablet(s) PO on and 06/21/2015 10/25/2015 In active Vistaril 25 mg capsule RxNorm: 831823 1 Capsule(s) PO BID 06/20/2015 07/24/2015 Inactive Cymbalta 30 mg capsu le,delayed release RxNorm: 802226 1 Capsule(s) PO QD 06/08/2015 07/09/2015 In active Coumadin 5 mg tablet RxNorm: 179888 1 Tablet(s) PO Mon.,Wed.,Fri., Sat. and Sun. 06/08/2015 07/07/2015 Inactive Coumadin 5 mg tablet RxNorm: 622756 1 Tablet(s) PO Mon.,Wed.,Fri., Sat. and Sun. 05/24/2015 06/07/2015 Inactive Coumadin 7.5 mg tablet RxNorm: 911994 1 Tablet(s) PO on and 05/24/2015 06/20/2015 In active Coumadin 7.5 mg tablet RxNorm: 470667 1 Tablet(s) PO on Friday No Start Date Active Vitamin B12 1000mcg Tablet RxNorm: 1/2 Tablet(s) PO QD No Start Date Active Bystolic 10 mg tablet RxNorm: 961218 3 Tablet(s) PO QAM No Start Date Active Vitamin D3 5,000 uni t tablet RxNorm: 874743 1 Tablet(s) PO QD No Start Date Active Bystolic 5 mg tablet RxNorm: 894726 1 Tablet(s) PO NOON No Start Date Active sumatriptan 100 mg t ablet RxNorm: 212645 1 Tablet(s) PO at hea dache onset. May repeat in 2 hours if headache remains No Start Date 11/03/2016 Inactive warfarin 7.5 mg tablet RxNorm: 276495 1 Tablet(s) PO three times weekly No Start Date 09/19/2016 Inactive ondansetron HCl 4 mg tablet RxNorm: 994933 1 Tablet(s) PO Q4H as needed for nausea No Start Date 02/23/2018 Inactive Imitrex 100 mg tablet RxNorm: 321101 1 Tablet(s) PO at headache onset and may repeat in 2 hours if needed No Start Date 12/04/2015 Inactive Vitamin B12 1000mcg Tablet RxNorm: 1/2 Tablet(s) PO on Tues, T hurs, Sat and Sun and 1 tab all other days No Start Date 04/01/2018 Inactive baclofen 10 mg tablet RxNorm: 905781 1/2 Tablet(s) PO QAM and 1 tablet at bed time No Start Date 07/26/2015 Inactive tizanidine 4 mg tablet RxNorm: 947578 1-2 Tablet(s) PO QHS as needed for muscl e spasm and sleep No Start Date 06/02/2016 Inactive Flexeril 5 mg tablet RxNorm: 026965 1 Tablet(s) PO QD No Start Date 10/09/2015 Inactive methotrexate (PF) 20 mg/0.4 mL subcutaneous auto-injector RxNorm: 2798760 SQ QW No Start Date 12/25/2016 Inactive Bystolic 5 mg tablet RxNorm: 897899 1 Tablet(s) PO as needed No Start Date 03/15/2018 Inactive Questran Light 4 gra m powder for susp in a packet RxNorm: 480631 1 PO QD No Start Date 11/12/2015 Inactive Bystolic 10 mg tablet RxNorm: 822844 1 Tablet(s) PO QAM No Start Date 11/04/2017 Inactive warfarin 5 mg tablet RxNorm: 459856 1 Tablet(s) PO Fri Sat Sun No Start Date 06/17/2017 Inactive hydrocodone 10 mg-ac etaminophen 325 mg tablet RxNorm: 682476 1 Tablet(s) PO 4-6hou rs as needed for pain No Start Date 08/31/2015 Inactive cyclobenzaprine 5 mg tablet RxNorm: 665490 1 Tablet(s) PO QPM No Start Date 12/16/2016 Inactive Lovenox 100 mg/mL carmona bcutaneous syringe RxNorm: 678042 1 Milliliter(s) SQ QD No Start Date 06/07/2015 Inactive Levsin 0.125 mg tablet RxNorm: 2841481 1 Tablet(s) PO QID as needed for spasm No Start Date 02/24/2017 Inactive Savella 12.5 mg (5)- 25 mg(8)-50mg(42) tablets in a dose pack RxNorm: 110084 Tablet(s) PO as directed No Start Date 07/09/2015 Inactive Coumadin 10 mg tablet RxNorm: 273993 1 Tablet(s) PO QD No Start Date 2015 Inactive tramadol 50 mg tablet RxNorm: 861935 1 Tablet(s) PO TID as needed for pain No Start Date 03/31/2017 Inactive BuSpar 5 mg tablet RxNorm: 777876 1 Tablet(s) PO BID No Start Date 02/02/2017 Inactive Vistaril 25 mg capsule RxNorm: 066939 1 Capsule(s) PO BID No Start Date 06/19/2015 Inactive Tessalon Perles 100 mg capsule RxNorm: 423785 1 Capsule(s) PO TID a s needed for cough No Start Date 01/19/2019 Inactive promethazine 12.5 mg tablet RxNorm: 884780 1 Tablet(s) PO Q6H as needed No Start Date 04/22/2018 Inactive Coumadin 7.5 mg tablet RxNorm: 630923 1 Tablet(s) PO Sat and Friday No Start Date 03/13/2016 Inactive Imitrex 50 mg tablet RxNorm: 528185 1 Tablet(s) PO at headache. repeat in 2 hours if no relief. no more than 2 tabs per day No Start Date 12/25/2017 Inactive acetazolamide 125 mg tablet RxNorm: 790770 1 Tablet(s) PO BID No Start Date 09/13/2015 Inactive methotrexate (PF) 12 .5 mg/0.4 mL subcutaneous auto-injector RxNorm: 6647710 1 Milliliter(s) SQ QW No Start Date 03/31/2017 Inactive Bystolic 10 mg tablet RxNorm: 882130 1 Tablet(s) PO QAM No Start Date 03/25/2018 Inactive Zithromax Z-Juan Francisco 250 mg tablet RxNorm: 552919 Tablet(s) PO As Direc liane No Start Date 05/11/2017 Inactive Bystolic 20 mg tablet RxNorm: 807681 1 Tablet(s) PO QD No Start Date 03/15/2018 Inactive Questran 4 gram powd er for susp in a packet RxNorm: 296404 1 Unit(s) PO QD No Start Date 12/16/2016 Inactive Vitamin D3 1,000 uni t tablet RxNorm: 157141 1 Tablet(s) PO QD No Start Date 04/01/2018 Inactive Coumadin 5 mg tablet RxNorm: 647095 1 Tablet(s) PO Friday through Friday No Start Date 03/13/2016 Inactive warfarin 5 mg tablet RxNorm: 189904 1 Tablet(s) PO four days per week No Start Date 04/01/2018 Inactive ProAir HFA 90 mcg/ac tuation aerosol inhaler RxNorm: 937323 2 Puff(s) INH Q4H as needed No Start Date 01/19/2019 Inactive Bystolic 5 mg tablet RxNorm: 021100 1 Tablet(s) PO QHS No Start Date 03/25/2018 Inactive Compazine 10 mg tablet RxNorm: 683513 1 Tablet(s) PO TID as needed for nausea No Start Date 12/17/2016 Inactive Pyridium 200 mg tablet RxNorm: 1417061 1 Tablet(s) PO TID for bladder spasms No Start Date 02/26/2017 Inactive hydrocodone 10 mg-ac etaminophen 325 mg tablet RxNorm: 488259 1 Tablet(s) PO as nee ded No Start Date 06/28/2015 Inactive warfarin 7.5 mg tablet RxNorm: 252271 1 Tablet(s) PO on Friday and No Start Date 04/01/2018 Inactive promethazine 25 mg t ablet RxNorm: 950612 1 Tablet(s) PO Q4H as needed for nausea No Start Date 12/04/2015 Inactive Lovenox 30 mg/0.3 mL subcutaneous syringe RxNorm: 788134 1 Milliliter(s) SQ QD No Start Date 06/07/2015 Inactive Vitamin B12 1000mcg Tablet RxNorm: 1/2 Tablet(s) PO QD No Start Date 12/02/2017 Inactive Vitamin B12 1000mcg Tablet RxNorm: 1 Tablet(s) PO M/W/F QD No Start Date 12/02/2017 Inactive Medication [...] 01/19/2019 COUGH ICD-10: R05 ICD-9: 786.2 01/19/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 ICD-9: [...] and perineal pain ICD-10: R10 .2 ICD-9: [id number] 02/10/2017 Hematuria, unspecified ICD-10: R31.9 ICD-9: 599.70 [...] up 06/08/2015 Serena LUCERO follow up 05/31/2015 alivia pugh has history of intestitial cystitis ~generic 05/24/2015 Esta blishing care Results Observation Observation Code Item Item Code Result Date ANTI STREPTOLYSIN O TITER(ASO) 53151 ASO Titr 110 IU/mL 9 MYCOPLASMA ANTIBODY, IFA [id number] Mycoplas Ab IgG 1:64 01/20/2019 MYCOPLASMA ANTIBODY, IFA [id number] Mycoplas Ab IgM <1:10 01/20/2019 MYCOPLASMA ANTIBODY, IFA [id number] Mycoplasma Intp See Below 01/20/2019 LEGIONELLA [id number] Reynaldo avitia Ab <1:128 01/20/2019 HEPATIC FUNCTION PANEL A 70446 Total Protein 6.3 g/dL 01/19/2019 HEPATIC FUNCTION PANEL A 28511 AST 16 U/L 01/19/2019 HEPATIC FUNCTION PANEL A 79050 ALK PHOS 52 U/L 01/19/2019 HEPATIC FUNCTION PANEL A 26317 Bili Total 0.2 mg/dL 01/19/2019 HEPATIC FUNCTION PANEL A 64156 ALT 20 U/L 01/19/2019 HEPATIC FUNCTION PANEL A 61553 ALBUMIN 4.3 g/dL 01/19/2019 HEPATIC FUNCTION PANEL A 60906 Bili Direct 0.1 mg/dL 01/19/2019 PT 0738459 PT 27.5 Seconds 01/19/2019 PT 9993310 INR 2.6 01/19/2019 COMPLETE BLOOD COUNT 9446661 WBC 11.1 10e9/L 01/19/2019 COMPLETE BLOOD COUNT 6930645 RBC 4.14 10e12/L 9 COMPLETE BLOOD COUNT 3478642 HEMOGLOBIN 13.9 g/dL 01/19/2019 COMPLETE BLOOD COUNT 9503220 HEMATOCRIT 40.7 % 01/19/2019 COMPLETE BLOOD COUNT 1107826 MCV 98.3 fL 01/19/2019 COMPLETE BLOOD COUNT 4747397 MCH 33.6 pg 01/19/2019 COMPLETE BLOOD COUNT 7774938 MCHC 34.2 g/dL 01/19/2019 COMPLETE BLOOD COUNT 9180464 PLATELET COUNT 334 10e9/L 01/19/2019 COMPLETE BLOOD COUNT 7119666 Mean Plt Volume 8.9 fL 01/19/2019 COMPLETE BLOOD COUNT 1734432 Neut Auto 60.2 % 01/19/2019 COMPLETE BLOOD COUNT 1630476 Lymph Auto 32.5 % 01/19/2019 COMPLETE BLOOD COUNT 2468192 [place] Auto 6.1 % 01/19/2019 COMPLETE BLOOD COUNT 1656449 RDW 12.5 % 01/19/2019 COMPLETE BLOOD COUNT 1632138 Eos Auto 1.0 % 01/19/2019 COMPLETE BLOOD COUNT 7855768 Baso Auto 0.2 % 01/19/2019 COMPLETE BLOOD COUNT 5326411 Neutrophil Abs 6.68 10e9/L 01/19/2019 COMPLETE BLOOD COUNT 9649097 Lymphocyte Abs 3.61 10e9/L 01/19/2019 COMPLETE BLOOD COUNT 9231482 Monocyte Abs 0.68 10e9/L 01/19/2019 COMPLETE BLOOD COUNT 3966043 Eosinophil Abs 0.11 10e9/L 01/19/2019 COMPLETE BLOOD COUNT 7006388 RDW-SD 43.4 fL 01/19/2019 COMPLETE BLOOD COUNT 3903183 Basophil Abs 0.02 10e9/L 01/19/2019 COMPLETE BLOOD COUNT 1526377 WBC 7.4 10e9/L 12/18/2018 COMPLETE BLOOD COUNT 7303172 RBC 4.32 10e12/L 9 COMPLETE BLOOD COUNT 7244870 HEMOGLOBIN 14.2 g/dL 12/18/2018 COMPLETE BLOOD COUNT 5978911 HEMATOCRIT 42.0 % 12/18/2018 COMPLETE BLOOD COUNT 7265363 MCV 97.2 fL 12/18/2018 COMPLETE BLOOD COUNT 3832779 MCH 32.9 pg 12/18/2018 COMPLETE BLOOD COUNT 5785149 MCHC 33.8 g/dL 12/18/2018 COMPLETE BLOOD COUNT 5218883 PLATELET COUNT 273 10e9/L 12/18/2018 COMPLETE BLOOD COUNT 3898408 Mean Plt Volume 9.4 fL 12/18/2018 COMPLETE BLOOD COUNT 2806050 Neut Auto 57.7 % 12/18/2018 COMPLETE BLOOD COUNT 6126445 Lymph Auto 34.8 % 12/18/2018 COMPLETE BLOOD COUNT 1925043 [place] Auto 6.4 % 12/18/2018 COMPLETE BLOOD COUNT 5137880 RDW 12.6 % 12/18/2018 COMPLETE BLOOD COUNT 1745925 Eos Auto 0.8 % 12/18/2018 COMPLETE BLOOD COUNT 2188981 Baso Auto 0.3 % 12/18/2018 COMPLETE BLOOD COUNT 2457097 Neutrophil Abs 4.27 10e9/L 12/18/2018 COMPLETE BLOOD COUNT 7698482 Lymphocyte Abs 2.58 10e9/L 12/18/2018 COMPLETE BLOOD COUNT 0834397 Monocyte Abs 0.47 10e9/L 12/18/2018 COMPLETE BLOOD COUNT 6692555 Eosinophil Abs 0.06 10e9/L 12/18/2018 COMPLETE BLOOD COUNT 9176846 RDW-SD 43.8 fL 12/18/2018 COMPLETE BLOOD COUNT 2565721 Basophil Abs 0.02 10e9/L 12/18/2018 GFR CALC 9110917 GFR Non Afr Amr >60 mL/min 12/18/2018 GFR CALC 5716975 GFR Afr Amr >60 mL/min 12/18/2018 COMPREHENSIVE METABOLIC 88978 AST 33 U/L 12/18/2018 COMPREHENSIVE METABOLIC 16866 ALT 60 U/L 12/18/2018 COMPREHENSIVE METABOLIC 79889 BUN 9 mg/dL 12/18/2018 COMPREHENSIVE METABOLIC 21090 ALBUMIN 4.3 g/dL 12/18/2018 COMPREHENSIVE METABOLIC 44079 CHLORIDE 104 mmol/L 12/18/2018 COMPREHENSIVE METABOLIC 38090 Bili Total 0.3 mg/dL 12/18/2018 COMPREHENSIVE METABOLIC 03663 ALK PHOS 63 U/L 12/18/2018 COMPREHENSIVE METABOLIC 53386 SODIUM 139 mmol/L 12/18/2018 COMPREHENSIVE METABOLIC 46814 CREATININE 0.55 mg/dL 12/18/2018 COMPREHENSIVE METABOLIC 61154 CALCIUM 9.0 mg/dL 12/18/2018 COMPREHENSIVE METABOLIC 97035 POTASSIUM 3.9 mmol/L 12/18/2018 COMPREHENSIVE METABOLIC 19434 Total Protein 6.4 g/dL 12/18/2018 COMPREHENSIVE METABOLIC 54347 Glucose 83 mg/dL 12/18/2018 COMPREHENSIVE METABOLIC 99949 Bicarbonate 27 mmol/L 12/18/2018 COMPREHENSIVE METABOLIC 64609 AGAP 8 mmol/L 12/18/2018 ERYTHROCYTE SEDIMENTATION RATE 53028 Sed Rate 17 mm/hr 12/04/2018 MEAN GLUC 9222410 Calc M zach Gluc 108 mg/dL 12/03/2018 VITAMIN B 12 12927 VITAM IN B12 329 pg/mL 12/03/2018 COMPREHENSIVE METABOLIC 84226 AST 18 U/L 12/03/2018 COMPREHENSIVE METABOLIC 89556 ALT 21 U/L 12/03/2018 COMPREHENSIVE METABOLIC 17175 BUN 11 mg/dL 12/03/2018 COMPREHENSIVE METABOLIC 38130 ALBUMIN 4.5 g/dL 12/03/2018 COMPREHENSIVE METABOLIC 04316 CHLORIDE 106 mmol/L 12/03/2018 COMPREHENSIVE METABOLIC 86322 Bili Total 0.4 mg/dL 12/03/2018 COMPREHENSIVE METABOLIC 11563 ALK PHOS 49 U/L 12/03/2018 COMPREHENSIVE METABOLIC 35466 SODIUM 138 mmol/L 12/03/2018 COMPREHENSIVE METABOLIC 06657 CREATININE 0.61 mg/dL 12/03/2018 COMPREHENSIVE METABOLIC 65796 CALCIUM 9.2 mg/dL 12/03/2018 COMPREHENSIVE METABOLIC 91368 POTASSIUM 3.7 mmol/L 12/03/2018 COMPREHENSIVE METABOLIC 45183 Total Protein 6.8 g/dL 12/03/2018 COMPREHENSIVE METABOLIC 08143 Glucose 94 mg/dL 12/03/2018 COMPREHENSIVE METABOLIC 66408 Bicarbonate 25 mmol/L 12/03/2018 COMPREHENSIVE METABOLIC 64284 AGAP 7 mmol/L 12/03/2018 FREE T4 30344 T4 Free 0.96 ng/dL 12/03/2018 ASSAY TRIIODOTHYRONINE (T3) 15094 T3 Total 1.02 ng/mL 12/03/2018 GFR CALC 7787200 GFR Non Afr Amr >60 mL/min 12/03/2018 GFR CALC 2672216 GFR Afr Amr >60 mL/min 12/03/2018 GLYCOSYLATED HEMOGLOBIN TEST 85015 Hgb A1c 43491-5 5.4 % 12/03/2018 VITAMIN D TOTAL (25 HYDROXY) 42908 Vitamin D 25 [place] 11.1 ng/mL 12/03/2018 IRON 47594 Iron 106 ug/dL 12/03/2018 THYROID STIMULATING HORMONE 67693 TSH 0.978 uIU/mL 9 COMPLETE BLOOD COUNT 8459387 WBC 9.4 10e9/L 12/03/2018 COMPLETE BLOOD COUNT 1202620 RBC 4.41 10e12/L 9 COMPLETE BLOOD COUNT 1904361 HEMOGLOBIN 14.5 g/dL 12/03/2018 COMPLETE BLOOD COUNT 9500690 HEMATOCRIT 43.0 % 12/03/2018 COMPLETE BLOOD COUNT 2860152 MCV 97.5 fL 12/03/2018 COMPLETE BLOOD COUNT 6558404 MCH 32.9 pg 12/03/2018 COMPLETE BLOOD COUNT 6536712 MCHC 33.7 g/dL 12/03/2018 COMPLETE BLOOD COUNT 2211191 PLATELET COUNT 336 10e9/L 12/03/2018 COMPLETE BLOOD COUNT 9737837 Mean Plt Volume 9.1 fL 12/03/2018 COMPLETE BLOOD COUNT 6562445 Neut Auto 56.4 % 12/03/2018 COMPLETE BLOOD COUNT 4188796 Lymph Auto 35.6 % 12/03/2018 COMPLETE BLOOD COUNT 3142112 [place] Auto 6.8 % 12/03/2018 COMPLETE BLOOD COUNT 1285010 RDW 12.6 % 12/03/2018 COMPLETE BLOOD COUNT 2536476 Eos Auto 1.0 % 12/03/2018 COMPLETE BLOOD COUNT 7644800 Baso Auto 0.2 % 12/03/2018 COMPLETE BLOOD COUNT 8829123 Neutrophil Abs 5.30 10e9/L 12/03/2018 COMPLETE BLOOD COUNT 3346016 Lymphocyte Abs 3.35 10e9/L 12/03/2018 COMPLETE BLOOD COUNT 8187903 Monocyte Abs 0.64 10e9/L 12/03/2018 COMPLETE BLOOD COUNT 2338317 Eosinophil Abs 0.09 10e9/L 12/03/2018 COMPLETE BLOOD COUNT 6533980 RDW-SD 44.3 fL 12/03/2018 COMPLETE BLOOD COUNT 9158113 Basophil Abs 0.02 10e9/L 12/03/2018 FERRITIN 70579 FERRITIN 87.8 ng/mL 12/03/2018 PT 2774640 PT 23.1 Seconds 11/30/2018 PT 9903465 INR 2.0 11/30/2018 ANTI STREPTOLYSIN O TITER(ASO) 64336 ASO Titr 117 IU/mL 9 COMPLETE BLOOD COUNT 4388919 WBC 10.7 10e9/L 11/11/2018 COMPLETE BLOOD COUNT 5795323 RBC 4.42 10e12/L 9 COMPLETE BLOOD COUNT 8507172 HEMOGLOBIN 14.5 g/dL 11/11/2018 COMPLETE BLOOD COUNT 7668258 HEMATOCRIT 43.1 % 11/11/2018 COMPLETE BLOOD COUNT 5011533 MCV 97.5 fL 11/11/2018 COMPLETE BLOOD COUNT 7472797 MCH 32.8 pg 11/11/2018 COMPLETE BLOOD COUNT 0087428 MCHC 33.6 g/dL 11/11/2018 COMPLETE BLOOD COUNT 1792593 PLATELET COUNT 324 10e9/L 11/11/2018 COMPLETE BLOOD COUNT 5743317 Mean Plt Volume 9.2 fL 11/11/2018 COMPLETE BLOOD COUNT 3403962 Neut Auto 62.3 % 11/11/2018 COMPLETE BLOOD COUNT 4264862 Lymph Auto 30.8 % 11/11/2018 COMPLETE BLOOD COUNT 7391516 [place] Auto 6.1 % 11/11/2018 COMPLETE BLOOD COUNT 7547327 RDW 12.7 % 11/11/2018 COMPLETE BLOOD COUNT 3462555 Eos Auto 0.7 % 11/11/2018 COMPLETE BLOOD COUNT 9805649 Baso Auto 0.1 % 11/11/2018 COMPLETE BLOOD COUNT 1522263 Neutrophil Abs 6.67 10e9/L 11/11/2018 COMPLETE BLOOD COUNT 3988209 Lymphocyte Abs 3.30 10e9/L 11/11/2018 COMPLETE BLOOD COUNT 9261638 Monocyte Abs 0.65 10e9/L 11/11/2018 COMPLETE BLOOD COUNT 5074161 Eosinophil Abs 0.07 10e9/L 11/11/2018 COMPLETE BLOOD COUNT 7527379 RDW-SD 44.3 fL 11/11/2018 COMPLETE BLOOD COUNT 0659016 Basophil Abs 0.01 10e9/L 11/11/2018 PT 2964947 PT 23.4 Seconds 10/27/2018 PT 6444296 INR 2.0 10/27/2018 COMPLETE BLOOD COUNT 7687933 WBC 8.1 10e9/L 09/25/2018 COMPLETE BLOOD COUNT 8705182 RBC 4.37 10e12/L 9 COMPLETE BLOOD COUNT 9722505 HEMOGLOBIN 14.5 g/dL 09/25/2018 COMPLETE BLOOD COUNT 2092570 HEMATOCRIT 42.1 % 09/25/2018 COMPLETE BLOOD COUNT 8680107 MCV 96.3 fL 09/25/2018 COMPLETE BLOOD COUNT 0517739 MCH 33.2 pg 09/25/2018 COMPLETE BLOOD COUNT 6598096 MCHC 34.4 g/dL 09/25/2018 COMPLETE BLOOD COUNT 1020252 PLATELET COUNT 313 10e9/L 09/25/2018 COMPLETE BLOOD COUNT 2225030 Mean Plt Volume 9.2 fL 09/25/2018 COMPLETE BLOOD COUNT 4945193 Neut Auto 57.4 % 09/25/2018 COMPLETE BLOOD COUNT 0397984 Lymph Auto 35.0 % 09/25/2018 COMPLETE BLOOD COUNT 7285680 [place] Auto 6.3 % 09/25/2018 COMPLETE BLOOD COUNT 0977509 RDW 12.6 % 09/25/2018 COMPLETE BLOOD COUNT 5652672 Eos Auto 1.1 % 09/25/2018 COMPLETE BLOOD COUNT 2235601 Baso Auto 0.2 % 09/25/2018 COMPLETE BLOOD COUNT 1190236 Neutrophil Abs 4.65 10e9/L 09/25/2018 COMPLETE BLOOD COUNT 7939649 Lymphocyte Abs 2.84 10e9/L 09/25/2018 COMPLETE BLOOD COUNT 3445605 Monocyte Abs 0.51 10e9/L 09/25/2018 COMPLETE BLOOD COUNT 1380431 Eosinophil Abs 0.09 10e9/L 09/25/2018 COMPLETE BLOOD COUNT 7437116 RDW-SD 43.0 fL 09/25/2018 COMPLETE BLOOD COUNT 8378661 Basophil Abs 0.02 10e9/L 09/25/2018 COMPREHENSIVE METABOLIC 84978 AST 15 U/L 09/25/2018 COMPREHENSIVE METABOLIC 34028 ALT 20 U/L 09/25/2018 COMPREHENSIVE METABOLIC 45121 BUN 9 mg/dL 09/25/2018 COMPREHENSIVE METABOLIC 78954 ALBUMIN 4.3 g/dL 09/25/2018 COMPREHENSIVE METABOLIC 94258 CHLORIDE 107 mmol/L 09/25/2018 COMPREHENSIVE METABOLIC 35709 Bili Total 0.4 mg/dL 09/25/2018 COMPREHENSIVE METABOLIC 83234 ALK PHOS 51 U/L 09/25/2018 COMPREHENSIVE METABOLIC 63561 SODIUM 139 mmol/L 09/25/2018 COMPREHENSIVE METABOLIC 92294 CREATININE 0.61 mg/dL 09/25/2018 COMPREHENSIVE METABOLIC 39595 CALCIUM 9.1 mg/dL 09/25/2018 COMPREHENSIVE METABOLIC 13395 POTASSIUM 3.7 mmol/L 09/25/2018 COMPREHENSIVE METABOLIC 83779 Total Protein 6.3 g/dL 09/25/2018 COMPREHENSIVE METABOLIC 50984 Glucose 92 mg/dL 09/25/2018 COMPREHENSIVE METABOLIC 38809 Bicarbonate 24 mmol/L 09/25/2018 COMPREHENSIVE METABOLIC 54922 AGAP 8 mmol/L 09/25/2018 PT 5010651 PT 25.0 Seconds 09/25/2018 PT [id number] INR 2.2 09/25/2018 GFR CALC 8175860 GFR Non Afr Amr >60 mL/min 09/25/2018 GFR CALC 8837281 GFR Afr Amr >60 mL/min 09/25/2018 PT 9184514 PT 25.7 Seconds 05/12/2018 PT 3547391 INR 2.3 05/12/2018 PT 5813251 PT TNP:Improper Specimen 04/30/2018 PT [id number] INR TNP:Improper Specimen 04/30/2018 PT 2411734 PT 26.3 Seconds 02/05/2018 PT 9575693 INR 2.4 02/05/2018 ANTI STREPTOLYSIN O TITER(ASO) 68599 ASO Titr 118 IU/mL 8 VITAMIN B 12 89893 VITAM IN B12 302 pg/mL 12/02/2017 VITAMIN D TOTAL (25 HYDROXY) 97590 Vitamin D 25 OH 27.0 ng/mL 12/02/2017 PT 4309807 PT 17.3 Seconds 12/01/2017 PT 1538690 INR 1.4 12/01/2017 ANTI STREPTOLYSIN O TITER(ASO) 30506 ASO Titr 127 IU/mL 8 ANTI STREPTOLYSIN O TITER(ASO) 63151 ASO Titr 130 IU/mL 8 ANTINUCLEAR ANTIBODY SCREEN 83643 MAGALIE Ab Scr <1:80 10/02/2017 RA FACTOR 94102 RA FACTOR <20 IU/mL 10/02/2017 RA FACTOR 47087 RA Facto r Intp Negative 10/02/2017 VITAMIN D TOTAL (25 HYDROXY) 69469 Vitamin D 25 OH 18 ng/mL 8 IRON 75085 Iron 70 ug/dL 10/01/2017 VITAMIN B 12 81927 VITAM IN B12 377 pg/mL 10/01/2017 FREE T4 57120 T4 Free 1.31 ng/dL 10/01/2017 URIC ACID 32753 URIC ACID 3.9 mg/dL 10/01/2017 FERRITIN 16347 FERRITIN 68.0 ng/mL 10/01/2017 THYROID STIMULATING HORMONE 95032 TSH 1.401 uIU/mL 8 GLYCOSYLATED HEMOGLOBIN TEST 79305 Hgb A1c 34821-2 5.4 % 10/01/2017 FOLIC ACID 52795 Folate >24.0 ng/mL 10/01/2017 ASSAY TRIIODOTHYRONINE (T3) 95657 T3 Total 1.0 ng/mL 10/01/2017 ERYTHROCYTE SEDIMENTATION RATE 38570 Sed Rate 5 mm/hr 10/01/2017 MEAN GLUC 5704856 Calc M zach Gluc 108 mg/dL 10/01/2017 PT 5036489 PT 18.6 Seconds 08/07/2017 PT 4381879 INR 1.5 08/07/2017 COMPREHENSIVE METABOLIC 85430 AST 21 U/L 08/07/2017 COMPREHENSIVE METABOLIC 51257 ALT 37 U/L 08/07/2017 COMPREHENSIVE METABOLIC 72562 BUN 14 mg/dL 08/07/2017 COMPREHENSIVE METABOLIC 43123 ALBUMIN 4.5 g/dL 08/07/2017 COMPREHENSIVE METABOLIC 56982 CHLORIDE 104 mmol/L 08/07/2017 COMPREHENSIVE METABOLIC 34466 Bili Total 0.3 mg/dL 08/07/2017 COMPREHENSIVE METABOLIC 52889 ALK PHOS 55 U/L 08/07/2017 COMPREHENSIVE METABOLIC 72084 SODIUM 139 mmol/L 08/07/2017 COMPREHENSIVE METABOLIC 00366 CREATININE 0.77 mg/dL 08/07/2017 COMPREHENSIVE METABOLIC 72524 CALCIUM 9.2 mg/dL 08/07/2017 COMPREHENSIVE METABOLIC 22801 POTASSIUM 3.7 mmol/L 08/07/2017 COMPREHENSIVE METABOLIC 90517 Total Protein 6.5 g/dL 08/07/2017 COMPREHENSIVE METABOLIC 95042 Glucose 101 mg/dL 08/07/2017 COMPREHENSIVE METABOLIC 24644 Bicarbonate 25 mmol/L 08/07/2017 COMPREHENSIVE METABOLIC 41903 AGAP 10 mmol/L 08/07/2017 COMPLETE BLOOD COUNT 7849807 WBC 9.4 10e9/L 08/07/2017 COMPLETE BLOOD COUNT 7407629 RBC 4.38 10e12/L 8 COMPLETE BLOOD COUNT 1069986 HEMOGLOBIN 14.5 g/dL 08/07/2017 COMPLETE BLOOD COUNT 1713189 HEMATOCRIT 42.7 % 08/07/2017 COMPLETE BLOOD COUNT 4935639 MCV 97.5 fL 08/07/2017 COMPLETE BLOOD COUNT 0309623 MCH 33.1 pg 08/07/2017 COMPLETE BLOOD COUNT 7966524 MCHC 34.0 g/dL 08/07/2017 COMPLETE BLOOD COUNT 7593164 PLATELET COUNT 313 10e9/L 08/07/2017 COMPLETE BLOOD COUNT 9049330 Mean Plt Volume 8.6 fL 08/07/2017 COMPLETE BLOOD COUNT 2496625 Neut Auto 51.6 % 08/07/2017 COMPLETE BLOOD COUNT 8862216 Lymph Auto 40.0 % 08/07/2017 COMPLETE BLOOD COUNT 1513075 [place] Auto 6.8 % 08/07/2017 COMPLETE BLOOD COUNT 6177421 RDW 12.9 % 08/07/2017 COMPLETE BLOOD COUNT 6833893 Eos Auto 1.4 % 08/07/2017 COMPLETE BLOOD COUNT 8386554 Baso Auto 0.2 % 08/07/2017 COMPLETE BLOOD COUNT 5153115 Neutrophil Abs 4.85 10e9/L 08/07/2017 COMPLETE BLOOD COUNT 1856378 Lymphocyte Abs 3.76 10e9/L 08/07/2017 COMPLETE BLOOD COUNT 6653171 Monocyte Abs 0.64 10e9/L 08/07/2017 COMPLETE BLOOD COUNT 9673375 Eosinophil Abs 0.13 10e9/L 08/07/2017 COMPLETE BLOOD COUNT 9102558 RDW-SD 45.1 fL 08/07/2017 COMPLETE BLOOD COUNT 3203112 Basophil Abs 0.02 10e9/L 08/07/2017 GFR CALC 3452627 GFR Non Afr Amr >60 mL/min 08/07/2017 GFR CALC 9549623 GFR Afr Amr >60 mL/min 08/07/2017 COMPLETE BLOOD COUNT 1608887 WBC 9.2 10e9/L 07/15/2017 COMPLETE BLOOD COUNT 5570852 RBC 4.70 10e12/L 8 COMPLETE BLOOD COUNT 4374603 HEMOGLOBIN 15.4 g/dL 07/15/2017 COMPLETE BLOOD COUNT 0396818 HEMATOCRIT 46.2 % 07/15/2017 COMPLETE BLOOD COUNT 2375459 MCV 98.3 fL 07/15/2017 COMPLETE BLOOD COUNT 7188670 MCH 32.8 pg 07/15/2017 COMPLETE BLOOD COUNT 5968503 MCHC 33.3 g/dL 07/15/2017 COMPLETE BLOOD COUNT 6772992 PLATELET COUNT 348 10e9/L 07/15/2017 COMPLETE BLOOD COUNT 4917050 Mean Plt Volume 8.9 fL 07/15/2017 COMPLETE BLOOD COUNT 6579188 Neut Auto 60.6 % 07/15/2017 COMPLETE BLOOD COUNT 6077107 Lymph Auto 30.9 % 07/15/2017 COMPLETE BLOOD COUNT 0129643 [place] Auto 7.1 % 07/15/2017 COMPLETE BLOOD COUNT 9843276 RDW 13.1 % 07/15/2017 COMPLETE BLOOD COUNT 6369426 Eos Auto 1.2 % 07/15/2017 COMPLETE BLOOD COUNT 5714756 Baso Auto 0.2 % 07/15/2017 COMPLETE BLOOD COUNT 1172834 Neutrophil Abs 5.58 10e9/L 07/15/2017 COMPLETE BLOOD COUNT 7835102 Lymphocyte Abs 2.84 10e9/L 07/15/2017 COMPLETE BLOOD COUNT 8054918 Monocyte Abs 0.65 10e9/L 07/15/2017 COMPLETE BLOOD COUNT 9631382 Eosinophil Abs 0.11 10e9/L 07/15/2017 COMPLETE BLOOD COUNT 3783921 RDW-SD 46.1 fL 07/15/2017 COMPLETE BLOOD COUNT 8198053 Basophil Abs 0.02 10e9/L 07/15/2017 GFR CALC 0168193 GFR Non Afr Amr >60 mL/min 07/15/2017 GFR CALC 9908167 GFR Afr Amr >60 mL/min 07/15/2017 COMPREHENSIVE METABOLIC 75513 AST 16 U/L 07/15/2017 COMPREHENSIVE METABOLIC 97884 ALT 20 U/L 07/15/2017 COMPREHENSIVE METABOLIC 79294 BUN 13 mg/dL 07/15/2017 COMPREHENSIVE METABOLIC 30510 ALBUMIN 4.6 g/dL 07/15/2017 COMPREHENSIVE METABOLIC 91080 CHLORIDE 106 mmol/L 07/15/2017 COMPREHENSIVE METABOLIC 73219 Bili Total 0.3 mg/dL 07/15/2017 COMPREHENSIVE METABOLIC 74245 ALK PHOS 50 U/L 07/15/2017 COMPREHENSIVE METABOLIC 45809 SODIUM 137 mmol/L 07/15/2017 COMPREHENSIVE METABOLIC 36085 CREATININE 0.62 mg/dL 07/15/2017 COMPREHENSIVE METABOLIC 86360 CALCIUM 9.2 mg/dL 07/15/2017 COMPREHENSIVE METABOLIC 64336 POTASSIUM 3.8 mmol/L 07/15/2017 COMPREHENSIVE METABOLIC 14373 Total Protein 6.7 g/dL 07/15/2017 COMPREHENSIVE METABOLIC 62152 Glucose 83 mg/dL 07/15/2017 COMPREHENSIVE METABOLIC 55344 Bicarbonate 30 mmol/L 07/15/2017 COMPREHENSIVE METABOLIC 29934 AGAP 1 mmol/L 07/15/2017 THYROID STIMULATING HORMONE 37154 TSH 2.111 uIU/mL 7 COMPREHENSIVE METABOLIC 82922 AST 33 U/L 08/27/2016 COMPREHENSIVE METABOLIC 86638 ALT 55 U/L 08/27/2016 COMPREHENSIVE METABOLIC 45788 BUN 11 mg/dL 08/27/2016 COMPREHENSIVE METABOLIC 74105 ALBUMIN 4.6 g/dL 08/27/2016 COMPREHENSIVE METABOLIC 81365 CHLORIDE 103 mmol/L 08/27/2016 COMPREHENSIVE METABOLIC 42950 Bili Total 0.3 mg/dL 08/27/2016 COMPREHENSIVE METABOLIC 69639 ALK PHOS 60 U/L 08/27/2016 COMPREHENSIVE METABOLIC 83598 SODIUM 140 mmol/L 08/27/2016 COMPREHENSIVE METABOLIC 22480 CREATININE 0.69 mg/dL 08/27/2016 COMPREHENSIVE METABOLIC 32023 CALCIUM 9.3 mg/dL 08/27/2016 COMPREHENSIVE METABOLIC 33980 POTASSIUM 3.7 mmol/L 08/27/2016 COMPREHENSIVE METABOLIC 73569 Total Protein 6.8 g/dL 08/27/2016 COMPREHENSIVE METABOLIC 17843 Glucose 79 mg/dL 08/27/2016 COMPREHENSIVE METABOLIC 05599 Bicarbonate 25 mmol/L 08/27/2016 COMPREHENSIVE METABOLIC 24534 AGAP 12 mmol/L 08/27/2016 COMPLETE BLOOD COUNT 3866538 WBC 9.4 10e9/L 08/27/2016 COMPLETE BLOOD COUNT 4724601 RBC 4.35 10e12/L 7 COMPLETE BLOOD COUNT 0035125 HEMOGLOBIN 14.2 g/dL 08/27/2016 COMPLETE BLOOD COUNT 1870448 HEMATOCRIT 41.5 % 08/27/2016 COMPLETE BLOOD COUNT 0173934 MCV 95.4 fL 08/27/2016 COMPLETE BLOOD COUNT 6827888 MCH 32.6 pg 08/27/2016 COMPLETE BLOOD COUNT 7251155 MCHC 34.2 g/dL 08/27/2016 COMPLETE BLOOD COUNT 1899477 PLATELET COUNT 289 10e9/L 08/27/2016 COMPLETE BLOOD COUNT 5870138 Mean Plt Volume 9.8 fL 08/27/2016 COMPLETE BLOOD COUNT 7915770 Neut Auto 47.7 % 08/27/2016 COMPLETE BLOOD COUNT 5462153 Lymph Auto 44.2 % 08/27/2016 COMPLETE BLOOD COUNT 8890368 [place] Auto 6.6 % 08/27/2016 COMPLETE BLOOD COUNT 7963387 RDW 12.9 % 08/27/2016 COMPLETE BLOOD COUNT 0477642 Eos Auto 1.4 % 08/27/2016 COMPLETE BLOOD COUNT 0714566 Baso Auto 0.1 % 08/27/2016 COMPLETE BLOOD COUNT 5488474 Neutrophil Abs 4.48 10e9/L 08/27/2016 COMPLETE BLOOD COUNT 7528053 Lymphocyte Abs 4.15 10e9/L 08/27/2016 COMPLETE BLOOD COUNT 9880769 Monocyte Abs 0.62 10e9/L 08/27/2016 COMPLETE BLOOD COUNT 2696555 Eosinophil Abs 0.13 10e9/L 08/27/2016 COMPLETE BLOOD COUNT 1499343 RDW-SD 43.9 fL 08/27/2016 COMPLETE BLOOD COUNT 3338292 Basophil Abs 0.01 10e9/L 08/27/2016 PT 4451672 PT 15.0 Seconds 08/27/2016 PT 0551362 INR 1.2 08/27/2016 GFR CALC 0767758 GFR Afr Amr >60 mL/min 08/27/2016 GFR CALC 3629518 GFR Non Afr Amr >60 mL/min 08/27/2016 GFR CALC 8757451 GFR Non Afr Amr >60 mL/min 05/24/2016 GFR CALC 2382205 GFR Afr Amr >60 mL/min 05/24/2016 COMPREHENSIVE METABOLIC 96266 AST 19 U/L 05/24/2016 COMPREHENSIVE METABOLIC 88630 ALT 23 U/L 05/24/2016 COMPREHENSIVE METABOLIC 78780 BUN 12 mg/dL 05/24/2016 COMPREHENSIVE METABOLIC 58890 ALBUMIN 4.1 g/dL 05/24/2016 COMPREHENSIVE METABOLIC 79987 CHLORIDE 105 mmol/L 05/24/2016 COMPREHENSIVE METABOLIC 80446 Bili Total 0.4 mg/dL 05/24/2016 COMPREHENSIVE METABOLIC 55007 ALK PHOS 52 U/L 05/24/2016 COMPREHENSIVE METABOLIC 26705 SODIUM 136 mmol/L 05/24/2016 COMPREHENSIVE METABOLIC 46095 CREATININE 0.61 mg/dL 05/24/2016 COMPREHENSIVE METABOLIC 04127 CALCIUM 8.8 mg/dL 05/24/2016 COMPREHENSIVE METABOLIC 23315 POTASSIUM 3.8 mmol/L 05/24/2016 COMPREHENSIVE METABOLIC 75171 Total Protein 6.2 g/dL 05/24/2016 COMPREHENSIVE METABOLIC 79259 Glucose 95 mg/dL 05/24/2016 COMPREHENSIVE METABOLIC 42390 Bicarbonate 19 mmol/L 05/24/2016 COMPREHENSIVE METABOLIC 77497 AGAP 12 mmol/L 05/24/2016 PT 9641587 PT 25.7 Seconds 05/24/2016 PT 3861083 INR 2.4 05/24/2016 PT 3861982 PT 22.2 Seconds 04/11/2016 PT 4678530 INR 2.0 04/11/2016 PT 1505607 PT 16.5 Seconds 03/13/2016 PT 3036412 INR 1.4 03/13/2016 THYROID STIMULATING HORMONE 15203 TSH 1.151 uIU/mL 6 COMPLETE BLOOD COUNT 7313613 WBC 10.0 10e9/L 03/12/2016 COMPLETE BLOOD COUNT 4200360 RBC 4.08 10e12/L 6 COMPLETE BLOOD COUNT 1991153 HEMOGLOBIN 13.5 g/dL 03/12/2016 COMPLETE BLOOD COUNT 8272102 HEMATOCRIT 38.8 % 03/12/2016 COMPLETE BLOOD COUNT 5992620 MCV 95.1 fL 03/12/2016 COMPLETE BLOOD COUNT 7779953 MCH 33.1 pg 03/12/2016 COMPLETE BLOOD COUNT 6124806 MCHC 34.8 g/dL 03/12/2016 COMPLETE BLOOD COUNT 8443197 PLATELET COUNT 282 10e9/L 03/12/2016 COMPLETE BLOOD COUNT 8489829 Mean Plt Volume 9.6 fL 03/12/2016 COMPLETE BLOOD COUNT 2639316 Neut Auto 53.5 % 03/12/2016 COMPLETE BLOOD COUNT 3581045 Lymph Auto 39.0 % 03/12/2016 COMPLETE BLOOD COUNT 5618563 [place] Auto 5.9 % 03/12/2016 COMPLETE BLOOD COUNT 5355764 RDW 12.6 % 03/12/2016 COMPLETE BLOOD COUNT 3961350 Eos Auto 1.4 % 03/12/2016 COMPLETE BLOOD COUNT 0345494 Baso Auto 0.2 % 03/12/2016 COMPLETE BLOOD COUNT 4263276 Neutrophil Abs 5.35 10e9/L 03/12/2016 COMPLETE BLOOD COUNT 7162131 Lymphocyte Abs 3.90 10e9/L 03/12/2016 COMPLETE BLOOD COUNT 6833282 Monocyte Abs 0.59 10e9/L 03/12/2016 COMPLETE BLOOD COUNT 7299967 Eosinophil Abs 0.14 10e9/L 03/12/2016 COMPLETE BLOOD COUNT 8987373 RDW-SD 42.7 fL 03/12/2016 COMPLETE BLOOD COUNT 1428800 Basophil Abs 0.02 10e9/L 03/12/2016 COMPREHENSIVE METABOLIC 49613 AST 13 U/L 03/12/2016 COMPREHENSIVE METABOLIC 93613 ALT 11 U/L 03/12/2016 COMPREHENSIVE METABOLIC 96650 BUN 11 mg/dL 03/12/2016 COMPREHENSIVE METABOLIC 23835 ALBUMIN 4.1 g/dL 03/12/2016 COMPREHENSIVE METABOLIC 78343 CHLORIDE 107 mmol/L 03/12/2016 COMPREHENSIVE METABOLIC 74565 Bili Total 0.3 mg/dL 03/12/2016 COMPREHENSIVE METABOLIC 34633 ALK PHOS 41 U/L 03/12/2016 COMPREHENSIVE METABOLIC 80435 SODIUM 137 mmol/L 03/12/2016 COMPREHENSIVE METABOLIC 79107 CREATININE 0.62 mg/dL 03/12/2016 COMPREHENSIVE METABOLIC 65595 CALCIUM 9.0 mg/dL 03/12/2016 COMPREHENSIVE METABOLIC 23984 POTASSIUM 3.8 mmol/L 03/12/2016 COMPREHENSIVE METABOLIC 13715 Total Protein 6.1 g/dL 03/12/2016 COMPREHENSIVE METABOLIC 25736 Glucose 95 mg/dL 03/12/2016 COMPREHENSIVE METABOLIC 54818 Bicarbonate 23 mmol/L 03/12/2016 COMPREHENSIVE METABOLIC 80050 AGAP 7 mmol/L 03/12/2016 GFR CALC 8766745 GFR Non Afr Amr >60 mL/min 03/12/2016 GFR CALC 1088595 GFR Afr Amr >60 mL/min 03/12/2016 PT 2599424 PT 14.4 Seconds 02/12/2016 PT 0608472 INR 1.2 02/12/2016 PT 3742461 PT 26.1 Seconds 02/01/2016 PT 1003461 INR 2.4 02/01/2016 EB VIRUS VCA G/M + EB[place] + [place] [address]|8 6665 x 2|74966 EBV VCA Ab IgG 3.70 11/13/2015 [place] VCA G/M + [place] + [place] [address]|8 6665 x 2|34989 EBV VCA Ab IgM 0.47 11/13/2015 EB VIRUS VCA G/M + EBNA + [place] [address]|8 6665 x 2|72002 EBV Nuclear Ab 2.24 11/13/2015 EB VIRUS VCA G/M + EBNA + [place] [address]|8 6665 x 2|33484 EBV Early Ab 1.37 11/13/2015 PT 0098998 PT 18.9 Seconds 11/10/2015 PT 6264372 INR 1.6 11/10/2015 PT 5327483 PT 16.8 Seconds 09/29/2015 PT 8732771 INR 1.4 09/29/2015 COMPLETE BLOOD COUNT 6669328 WBC 9.6 10e9/L 09/29/2015 COMPLETE BLOOD COUNT 3417644 RBC 4.51 10e12/L 6 COMPLETE BLOOD COUNT 7761053 HEMOGLOBIN 14.8 g/dL 09/29/2015 COMPLETE BLOOD COUNT 7141265 HEMATOCRIT 43.3 % 09/29/2015 COMPLETE BLOOD COUNT 3274158 MCV 96.0 fL 09/29/2015 COMPLETE BLOOD COUNT 5420371 MCH 32.8 pg 09/29/2015 COMPLETE BLOOD COUNT 5464004 MCHC 34.2 g/dL 09/29/2015 COMPLETE BLOOD COUNT 7447373 PLATELET COUNT 310 10e9/L 09/29/2015 COMPLETE BLOOD COUNT 7505311 Mean Plt Volume 9.7 fL 09/29/2015 COMPLETE BLOOD COUNT 4561982 Neutrophil 60.3 % 09/29/2015 COMPLETE BLOOD COUNT 9847270 Lymph Auto % 32.4 % 09/29/2015 COMPLETE BLOOD COUNT 5915501 Monocyte Auto % 6.5 % 09/29/2015 COMPLETE BLOOD COUNT 0643306 RDW 12.8 % 09/29/2015 COMPLETE BLOOD COUNT 0257644 Eosinophil 0.7 % 09/29/2015 COMPLETE BLOOD COUNT 0255664 Basophil 0.1 % 09/29/2015 COMPLETE BLOOD COUNT 8740445 Neutrophil Abs 5.79 10e9/L 09/29/2015 COMPLETE BLOOD COUNT 2520643 Lymphoctye Abs 3.11 10e9/L 09/29/2015 COMPLETE BLOOD COUNT 2951875 Monocyte Abs 0.62 10e9/L 09/29/2015 COMPLETE BLOOD COUNT 2661330 Eosinophil Abs 0.07 10e9/L 09/29/2015 COMPLETE BLOOD COUNT 3869388 RDW-SD 43.6 fL 09/29/2015 COMPLETE BLOOD COUNT 2236803 Basophil Abs 0.01 10e9/L 09/29/2015 IRON 48662 Iron 86 ug/dL 09/29/2015 COMPLETE BLOOD COUNT 3095666 WBC 9.6 10e9/L 09/29/2015 COMPLETE BLOOD COUNT 4801301 RBC 4.51 10e12/L 6 COMPLETE BLOOD COUNT 4162938 HEMOGLOBIN 14.8 g/dL 09/29/2015 COMPLETE BLOOD COUNT 5050701 HEMATOCRIT 43.3 % 09/29/2015 COMPLETE BLOOD COUNT 1524294 MCV 96.0 fL 09/29/2015 COMPLETE BLOOD COUNT 4048393 MCH 32.8 pg 09/29/2015 COMPLETE BLOOD COUNT 6988738 MCHC 34.2 g/dL 09/29/2015 COMPLETE BLOOD COUNT 8890785 PLATELET COUNT 310 10e9/L 09/29/2015 COMPLETE BLOOD COUNT 9244105 Mean Plt Volume 9.7 fL 09/29/2015 COMPLETE BLOOD COUNT 5487993 Neutrophil 60.3 % 09/29/2015 COMPLETE BLOOD COUNT 0135500 Lymph Auto % 32.4 % 09/29/2015 COMPLETE BLOOD COUNT 9968540 Monocyte Auto % 6.5 % 09/29/2015 COMPLETE BLOOD COUNT 5181265 RDW 12.8 % 09/29/2015 COMPLETE BLOOD COUNT 3728640 Eosinophil 0.7 % 09/29/2015 COMPLETE BLOOD COUNT 3990712 Basophil 0.1 % 09/29/2015 COMPLETE BLOOD COUNT 1300456 Neutrophil Abs 5.79 10e9/L 09/29/2015 COMPLETE BLOOD COUNT 6215038 Lymphoctye Abs 3.11 10e9/L 09/29/2015 COMPLETE BLOOD COUNT 7629313 Monocyte Abs 0.62 10e9/L 09/29/2015 COMPLETE BLOOD COUNT 6553124 Eosinophil Abs 0.07 10e9/L 09/29/2015 COMPLETE BLOOD COUNT 6277897 RDW-SD 43.6 fL 09/29/2015 COMPLETE BLOOD COUNT 9084842 Basophil Abs 0.01 10e9/L 09/29/2015 PT 5472756 PT 16.8 Seconds 09/29/2015 PT 2642561 INR 1.4 09/29/2015 IRON 94031 Iron 86 ug/dL 09/29/2015 PT MT IVANNA 50024 PRO T PAULIE 19.4 SEC 07/27/2015 PT MT IVANNA 39221 INR M CMC 1.7 07/27/2015 PT MT IVANNA 57895 PRO T PAULIE 21.4 SEC 06/21/2015 PT MT IVANNA 31314 INR M CMC 1.9 06/21/2015 PT MT IVANNA 99266 PRO T PAULIE 24.5 SEC 05/24/2015 PT MT IVANNA 09284 INR M CMC 2.3 05/24/2015 Review of [...] myalgias 07/15/2017 Dermatologic No rash Neurologic headache 2 08/2017 Ears/Nose/Throat/Neck headache 07/15/2017 Ears/Nose/Throat/Neck sinus congestion 07/15/2017 [...] Lymphatic neck nodes Overall: anterior cervical chain setvie ign 11/30/2018 None Full Exam - General [...] Procedures Procedure Codes Date ROUTINE VENIPUNCTURE CPT-4: 03421 02/17/2019 PT CPT-4: 3436505 02/17/2019 URINE CULTURE/ COLON Y COUNT CPT-4: 13294 02/08/2019 ROUTINE VENIPUNCTURE CPT-4: 01792 01/19/2019 PROTHROMBIN TIME CPT-4: 83655 01/19/2019 COMPLETE CBC W/AUTO DIFF WBC CPT-4: 94698 01/19/2019 ANTISTREPTOLYSIN O T ITER CPT-4: 91273 01/19/2019 HEPATIC FUNCTION PANEL CPT-4: 56414 01/19/2019 MYCOPLASMA ANTIBODY, IFA CPT-4: 44777A1 01/19/2019 RESPIRATORY CULTURE & STAIN CPT-4: 15490 01/19/2019 STREP A ASSAY W/OPTIC CPT-4: 52215 01/19/2019 THER/PROPH/DIAG INJ SC/IM CPT-4: 94234 01/04/2019 TRIAMCINOLONE ACET I [place] NOS CPT-4: J3301 01/04/2019 ROUTINE VENIPUNCTURE CPT-4: 60613 12/18/2018 COMPLETE CBC W/AUTO DIFF WBC CPT-4: 11517 12/18/2018 COMPREHEN METABOLIC PANEL CPT-4: 54592 12/18/2018 HYDRATION IV INFUSIO N INIT CPT-4: 60254 12/16/2018 STREP A ASSAY W/OPTIC CPT-4: 74349 12/02/2018 ROUTINE VENIPUNCTURE CPT-4: 01405 11/30/2018 PT CPT-4: 0530896 11/30/2018 CEFTRIAXONE SODIUM I NJECTION CPT-4: J0696 11/30/2018 THER/PROPH/DIAG INJ SC/IM CPT-4: 48026 11/30/2018 URINE CULTURE/ COLON Y COUNT CPT-4: 52185 11/20/2018 URINALYSIS NONAUTO W /O SCOPE CPT-4: 15303 11/20/2018 CEFTRIAXONE SODIUM I NJECTION CPT-4: J0696 11/12/2018 THER/PROPH/DIAG INJ SC/IM CPT-4: 14471 11/12/2018 STREP A ASSAY W/OPTIC CPT-4: 12795 11/11/2018 CEFTRIAXONE SODIUM I NJECTION CPT-4: J0696 11/11/2018 THER/PROPH/DIAG INJ SC/IM CPT-4: 93559 11/11/2018 ROUTINE VENIPUNCTURE CPT-4: 26049 11/11/2018 ANTISTREPTOLYSIN O T ITER CPT-4: 01409 11/11/2018 COMPLETE CBC W/AUTO DIFF WBC CPT-4: 14724 11/11/2018 ROUTINE VENIPUNCTURE CPT-4: 34550 10/27/2018 PT CPT-4: 8632792 10/27/2018 THER/PROPH/DIAG INJ SC/IM CPT-4: 53488 10/09/2018 TRIAMCINOLONE ACET I [place] NOS CPT-4: J3301 10/09/2018 CEFTRIAXONE SODIUM I NJECTION CPT-4: J0696 10/08/2018 THER/PROPH/DIAG INJ SC/IM CPT-4: 90766 10/08/2018 CEFTRIAXONE SODIUM I NJECTION CPT-4: J0696 10/07/2018 THER/PROPH/DIAG INJ SC/IM CPT-4: 04158 10/07/2018 ROUTINE VENIPUNCTURE CPT-4: 32058 09/25/2018 COMPREHEN METABOLIC PANEL CPT-4: 28604 09/25/2018 COMPLETE CBC W/AUTO DIFF WBC CPT-4: 18395 09/25/2018 PT CPT-4: 8623184 09/25/2018 URINE CULTURE/ COLON Y COUNT CPT-4: 35157 09/10/2018 URINALYSIS NONAUTO W /O SCOPE CPT-4: 84922 09/10/2018 CEFTRIAXONE SODIUM I NJECTION CPT-4: J0696 09/08/2018 THER/PROPH/DIAG INJ SC/IM CPT-4: 32407 09/08/2018 ROUTINE VENIPUNCTURE CPT-4: 55437 08/14/2018 PT CPT-4: 0315801 08/14/2018 CEFTRIAXONE SODIUM I NJECTION CPT-4: J0696 07/02/2018 THER/PROPH/DIAG INJ SC/IM CPT-4: 60606 07/02/2018 THER/PROPH/DIAG INJ SC/IM CPT-4: 51480 07/02/2018 TRIAMCINOLONE ACET I [place] NOS CPT-4: J3301 07/02/2018 ROUTINE VENIPUNCTURE CPT-4: 20561 06/22/2018 ANTISTREPTOLYSIN O T ITER CPT-4: 38182 06/22/2018 ROUTINE VENIPUNCTURE CPT-4: 79351 06/17/2018 PROTHROMBIN TIME CPT-4: 08648 06/17/2018 URINE CULTURE/ COLON Y COUNT CPT-4: 07124 06/17/2018 CEFTRIAXONE SODIUM I NJECTION CPT-4: J0696 05/12/2018 THER/PROPH/DIAG INJ SC/IM CPT-4: 55063 05/12/2018 PROTHROMBIN TIME CPT-4: 12013 05/11/2018 CEFTRIAXONE SODIUM I NJECTION CPT-4: J0696 05/11/2018 THER/PROPH/DIAG INJ SC/IM CPT-4: 88862 05/11/2018 ROUTINE VENIPUNCTURE CPT-4: 65529 04/30/2018 PROTHROMBIN TIME CPT-4: 47041 04/30/2018 THER/PROPH/DIAG INJ SC/IM CPT-4: 40750 04/02/2018 TRIAMCINOLONE ACET I [place] NOS CPT-4: J3301 04/02/2018 IIV4 VACCINE 3 YRS+ IM AND UP CPT-4: 29480 03/24/2018 IMMUNIZATION ADMIN CPT- 4: 84436 03/24/2018 ROUTINE VENIPUNCTURE CPT-4: 03292 03/24/2018 PT CPT-4: 1576204 03/24/2018 PROTHROMBIN TIME CPT-4: 51359 02/24/2018 ROUTINE VENIPUNCTURE CPT-4: 38260 02/24/2018 ROUTINE VENIPUNCTURE CPT-4: 36810 02/05/2018 PROTHROMBIN TIME CPT-4: 18878 02/05/2018 URINE CULTURE/ COLON Y COUNT CPT-4: 47137 02/05/2018 CEFTRIAXONE SODIUM I NJECTION CPT-4: J0696 01/29/2018 THER/PROPH/DIAG INJ SC/IM CPT-4: 22916 01/29/2018 CEFTRIAXONE SODIUM I NJECTION CPT-4: J0696 01/28/2018 THER/PROPH/DIAG INJ SC/IM CPT-4: 54924 01/28/2018 URINALYSIS NONAUTO W /O SCOPE CPT-4: 93221 01/26/2018 URINE CULTURE/ COLON Y COUNT CPT-4: 48570 01/26/2018 ROUTINE VENIPUNCTURE CPT-4: 98385 01/01/2018 PROTHROMBIN TIME CPT-4: 18622 01/01/2018 THER/PROPH/DIAG INJ SC/IM CPT-4: 32684 12/25/2017 TRIAMCINOLONE ACET I [place] NOS CPT-4: J3301 12/25/2017 DEXAMETHASONE SODIUM PHOS CPT-4: J1100 12/25/2017 STREP A ASSAY W/OPTIC CPT-4: 01236 12/11/2017 CEFTRIAXONE SODIUM I NJECTION CPT-4: J0696 12/11/2017 THER/PROPH/DIAG INJ SC/IM CPT-4: 05424 12/11/2017 ROUTINE VENIPUNCTURE CPT-4: 20140 12/01/2017 ANTISTREPTOLYSIN O T ITER CPT-4: 66769 12/01/2017 PROTHROMBIN TIME CPT-4: 53174 12/01/2017 VITAMIN D TOTAL (25 HYDROXY) CPT-4: 83922 12/01/2017 VITAMIN B-12 CPT-4: 88767 12/01/2017 SPECIMEN HANDLING OF FICE-LAB CPT-4: 24655 11/05/2017 ROUTINE VENIPUNCTURE CPT-4: 01646 10/14/2017 ANTISTREPTOLYSIN O T ITER CPT-4: 62772 10/14/2017 ROUTINE VENIPUNCTURE CPT-4: 60621 10/06/2017 PROTHROMBIN TIME CPT-4: 81398 10/06/2017 THER/PROPH/DIAG INJ SC/IM CPT-4: 11753 10/06/2017 TRIAMCINOLONE ACET I NJ NOS CPT-4: J3301 10/06/2017 ROUTINE VENIPUNCTURE CPT-4: 03767 10/01/2017 VITAMIN B-12 CPT-4: 63222 10/01/2017 FOLIC ACID CPT-4: 45265 10/01/2017 ASSAY THYROID STIM H ORMONE CPT-4: 54249 10/01/2017 ASSAY OF FREE THYROXINE CPT-4: 59009 10/01/2017 ASSAY TRIIODOTHYRONI NE (T3) CPT-4: 27912 10/01/2017 ASSAY OF BLOOD/URIC ACID CPT-4: 75167 10/01/2017 RHEUMATOID FACTOR QUANT CPT-4: 44079 10/01/2017 RBC SED RATE AUTOMATED CPT-4: 01426 10/01/2017 ANTISTREPTOLYSIN O T ITER CPT-4: 99959 10/01/2017 ASSAY OF IRON CPT-4: 00240 10/01/2017 ASSAY OF FERRITIN CPT-4: 49407 10/01/2017 ANTINUCLEAR ANTIBODIES CPT-4: 78690 10/01/2017 A1C HPLC CPT-4: 20409 10/01/2017 VITAMIN D TOTAL (25 HYDROXY) CPT-4: 75671 10/01/2017 THER/PROPH/DIAG INJ SC/IM CPT-4: 35763 09/05/2017 TRIAMCINOLONE ACET I NJ NOS CPT-4: J3301 09/05/2017 URINALYSIS NONAUTO W /O SCOPE CPT-4: 70321 09/05/2017 URINE CULTURE/ COLON Y COUNT CPT-4: 22085 09/05/2017 ROUTINE VENIPUNCTURE CPT-4: 86412 09/04/2017 PROTHROMBIN TIME CPT-4: 91657 09/04/2017 ROUTINE VENIPUNCTURE CPT-4: 53627 08/07/2017 COMPLETE CBC W/AUTO DIFF WBC CPT-4: 58825 08/07/2017 COMPREHEN METABOLIC PANEL CPT-4: 23598 08/07/2017 PROTHROMBIN TIME CPT-4: 41021 08/07/2017 INFLUENZA ASSAY W/OPTIC CPT-4: 76427 07/15/2017 ROUTINE VENIPUNCTURE CPT-4: 53068 07/15/2017 COMPREHEN METABOLIC PANEL CPT-4: 44759 07/15/2017 COMPLETE CBC W/AUTO DIFF WBC CPT-4: 30267 07/15/2017 CEFTRIAXONE SODIUM I NJECTION CPT-4: J0696 07/04/2017 THER/PROPH/DIAG INJ SC/IM CPT-4: 44330 07/04/2017 THER/PROPH/DIAG INJ SC/IM CPT-4: 98385 07/04/2017 TRIAMCINOLONE ACET I NJ NOS CPT-4: J3301 07/04/2017 CEFTRIAXONE SODIUM I NJECTION CPT-4: J0696 07/02/2017 THER/PROPH/DIAG INJ SC/IM CPT-4: 46625 07/02/2017 CEFTRIAXONE SODIUM I NJECTION CPT-4: J0696 07/01/2017 THER/PROPH/DIAG INJ SC/IM CPT-4: 38434 07/01/2017 ROUTINE VENIPUNCTURE CPT-4: 51920 06/19/2017 PROTHROMBIN TIME CPT-4: 33614 06/19/2017 THER/PROPH/DIAG INJ SC/IM CPT-4: 11659 04/01/2017 TRIAMCINOLONE ACET I NJ NOS CPT-4: J3301 04/01/2017 ROUTINE VENIPUNCTURE CPT-4: 26180 02/10/2017 PROTHROMBIN TIME CPT-4: 45411 02/10/2017 URINALYSIS NONAUTO W /O SCOPE CPT-4: 73422 02/10/2017 URINE CULTURE/ COLON Y COUNT CPT-4: 94210 02/10/2017 ROUTINE VENIPUNCTURE CPT-4: 29778 02/05/2017 PROTHROMBIN TIME CPT-4: 04374 02/05/2017 THROAT CULTURE CPT-4: 38494 02/03/2017 STREP A ASSAY W/OPTIC CPT-4: 70535 01/13/2017 ROUTINE VENIPUNCTURE CPT-4: 55320 12/18/2016 PROTHROMBIN TIME CPT-4: 24309 12/18/2016 URINE CULTURE/ COLON Y COUNT CPT-4: 47367 08/27/2016 ASSAY THYROID STIM H ORMONE CPT-4: 41257 08/27/2016 COMPREHEN METABOLIC PANEL CPT-4: 93777 08/27/2016 COMPLETE CBC W/AUTO DIFF WBC CPT-4: 31573 08/27/2016 PROTHROMBIN TIME CPT-4: 18450 08/27/2016 ROUTINE VENIPUNCTURE CPT-4: 95493 08/27/2016 ROUTINE VENIPUNCTURE CPT-4: 79164 05/24/2016 COMPREHEN METABOLIC PANEL CPT-4: 09452 05/24/2016 PROTHROMBIN TIME CPT-4: 23463 05/24/2016 URINALYSIS NONAUTO W /O SCOPE CPT-4: 19337 04/23/2016 URINE CULTURE/ COLON Y COUNT CPT-4: 25633 04/23/2016 PRESCRIP TRANSMIT A ERX SY CPT-4: G8553 04/23/2016 AEROBIC WOUND CULTUR E & STN CPT-4: 89820 04/17/2016 ROUTINE VENIPUNCTURE CPT-4: 36285 04/11/2016 PROTHROMBIN TIME CPT-4: 20642 04/11/2016 ROUTINE VENIPUNCTURE CPT-4: 88576 03/12/2016 COMPLETE CBC W/AUTO DIFF WBC CPT-4: 10129 03/12/2016 COMPREHEN METABOLIC PANEL CPT-4: 65718 03/12/2016 ASSAY THYROID STIM H ORMONE CPT-4: 60243 03/12/2016 PROTHROMBIN TIME CPT-4: 14944 03/12/2016 ROUTINE VENIPUNCTURE CPT-4: 39526 02/12/2016 PROTHROMBIN TIME CPT-4: 66942 02/12/2016 ROUTINE VENIPUNCTURE CPT-4: 65831 02/01/2016 PROTHROMBIN TIME CPT-4: 52255 02/01/2016 ROUTINE VENIPUNCTURE CPT-4: 58721 01/22/2016 PROTHROMBIN TIME CPT-4: 10476 01/22/2016 ROUTINE VENIPUNCTURE CPT-4: 98013 11/10/2015 PROTHROMBIN TIME CPT-4: 52121 11/10/2015 CEFTRIAXONE SODIUM I NJECTION CPT-4: J0696 11/10/2015 THER/PROPH/DIAG INJ SC/IM CPT-4: 53684 11/10/2015 EB VIRUS VCA G/M + E BNA + EA CPT-4: 13192|63800 x 2|26157 016 THROAT CULTURE CPT-4: 42797 11/09/2015 STREP A ASSAY W/OPTIC CPT-4: 75219 11/09/2015 STREP A ASSAY W/OPTIC CPT-4: 11384 10/02/2015 ROUTINE VENIPUNCTURE CPT-4: 34931 09/29/2015 COMPLETE CBC W/AUTO DIFF WBC CPT-4: 28707 09/29/2015 ASSAY OF IRON CPT-4: 31375 09/29/2015 PROTHROMBIN TIME CPT-4: 97743 09/29/2015 ROUTINE VENIPUNCTURE CPT-4: 39271 07/27/2015 PROTHROMBIN TIME CPT-4: 40357 07/27/2015 URINALYSIS NONAUTO W /O SCOPE CPT-4: 73316 06/30/2015 URINE CULTURE/ COLON Y COUNT CPT-4: 65387 06/30/2015 ROUTINE VENIPUNCTURE CPT-4: 09561 06/21/2015 PROTHROMBIN TIME CPT-4: 31099 06/21/2015 URINE CULTURE/ COLON Y COUNT CPT-4: 64947 05/31/2015 ROUTINE VENIPUNCTURE CPT-4: 72076 05/24/2015 PROTHROMBIN TIME CPT-4: 39770 05/24/2015 URINALYSIS NONAUTO W /O SCOPE CPT-4: 03858 05/24/2015 Vital Signs Date Vital 02/17/2019 Blood [...] 1: 122/70 Code: 8480-6 BMI: 32.2 Code: 40255-7 Heart Rate 1: 88 bpm Height: 5'3" Respiratory Rate: 20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 Appointment: Ivon Sky [address] [place], [place] [phone] [place] CANCELED 02/16/2019 Visit Diagnosis Plan: Unspecified [...] ICD-10 : K58.1 02/08/2019 Appointment: Ivon Sky [address] [place], [place] [phone] ACUTE ILLNESS 02/08/2019 Patient Education: Marisol- OptimizePOLO Coupon [id number] https://www.Honey/sampleHybrent/resources/getResource/61/6l38dvh5-9187-5652-2s Completed 02/08/2019 Visit Diagnosis Plan: Other fatigue [...] ICD-10 : R05 01/19/2019 Visit Diagnosis Plan: custodial (current ) use of anticoagulants Discussion: pt/inr ordered ICD-9 : V58.61 ICD-10 : Z79.01 01/19/2019 Visit Diagnosis Plan: Abnormal levels of other serum e nzymes Discussion: updated LFT ordered. ICD-9 : 790.5 ICD-10 : R74.8 01/19/2019 Visit Diagnosis Plan: Acute pharyngitis due to other specified organisms Discussion: rapid strep neg. ICD-9 : 462 ICD-10 : J02.8 01/19/2019 Appointment: Ivon Sky [address] [place], [place] [address] ACUTE ILLNESS 01/19/2019 Visit Diagnosis Plan: Otalgia, [...] ICD-10 : R53.83 01/04/2019 Appointment: Ivon Sky [address] ACUTE ILLNESS 01/04/2019 Appointment: Kristine Brambila WPtel: [address] [place] [address] LAB 12/18/2018 Appointment: Kristine Brambila WPtel: [address] [place] [address] ACUTE ILLNESS 12/16/2018 Visit Diagnosis Plan: Benign [...] : R53.83 12/03/2018 Appointment: Kristine Brambila WPtel: [address] [place] [address] ACUTE ILLNESS 12/03/2018 Visit Diagnosis Plan: Enlarged [...] ICD-10 : J02.9 12/02/2018 Appointment: Ivon Sky [address] [place] [address] FOLLOW UP 12/02/2018 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 instructed to call or rtc with any new or worsening concerns. tylenol prn pain. ICD-9 : 382.00 ICD-10 : H66.002 11/30/2018 Appointment: Ivon Sky [address] ACUTE ILLNESS 11/30/2018 Patient Education: Coumadin- OptimizeRX Coupon [id number] [id number] https://www.Honey/Formative Labs/resources/getResource/61/[email or web address] Completed 11/30/2018 Appointment: Kristine Brambila WPtel: [address] [place] [address] [place] UA 11/20/2018 Appointment: Kristine Brambila WPtel: [address] [place] [address] [place] INJECTION 11/12/2018 Visit Diagnosis Plan: Streptococcal pharyngitis Discussion: Strep A- positive ASO titer today along with CBC. Rocephin 1 gram. RTC tmrw for another injection. Patient states understanding. ICD-9 : 034.0 ICD-10 : J02.0 11/11/2018 Appointment: Lulu Navarro [address] [place] [address] ACUTE ILLNESS 11/11/2018 Appointment: Kristine Brambila WPtel: [address] [place] [address] ACUTE ILLNESS 10/27/2018 Appointment: Kristine Brambila WPtel: [address] [place] [address] [place] INJECTION 10/09/2018 Visit Diagnosis Plan: Acute recurrent maxillary sinusi tis Discussion: Rocephin 1 gram administered in clinic- patient tolerated well. Continue with supportive treatment at home as well. Tylenol for headache. Salt water gargles and sinus rinses advised. Patient states understanding. ICD-9 : 461.0 ICD-10 : J01.01 10/08/2018 Appointment: Lulu Navarro [address] [place] [address] [place] INJECTION 10/08/2018 Visit Diagnosis Plan: Acute recurrent maxillary sinusi tis Discussion: Rocephin- 1 gram administered in clinic. Patient tolerated well. Sinus rinses encouraged. Rest and fluids. Tylenol or Motrin for pain and fever. FU PRN. Patient states understanding. ICD-9 : 461.0 ICD-10 : J01.01 10/07/2018 Appointment: Lulu Navarro [address] [place] [address] ACUTE ILLNESS 10/07/2018 Visit Diagnosis Plan: Dizziness [...] ICD-10 : R42 09/25/2018 Appointment: Lulu Navarro [address] [place] [address] ACUTE ILLNESS 09/25/2018 Appointment: Kristine Brambila WPtel: [address] [place] [address] 09/10/2018 Visit Diagnosis Plan: Furuncle right hand [...] : R22.1 09/08/2018 Appointment: Kristine Brambila WPtel: [facility] [address] ACUTE ILLNESS 09/08/2018 Patient Education: cefdinir- OptimizeRX Coupon [id number] https://www.Honey/samplemd/resources/getResource/61/k8464h69-9d10-0kmk-j5 Completed 09/08/2018 Appointment: Krist[facility]ambila [facility]Ptel[phone] [facility] [facility] 08/14/2018 Visit Diagnosis Plan: Acute [...] ICD-10 : H92.02 07/23/2018 Appointment: Ivon Sky [address] [place] [address] ACUTE ILLNESS 07/23/2018 Patient Education: cyclobenzaprine- Opti mizeRX Coupon [id number] https://www.Honey/Formative Labs/resources/getResource/61/c140l9sq-m185-310j-xy [email or web address].pdf Completed 07/23/2018 Visit Diagnosis Plan: Streptococcal infe ction, unspecified site Discussion: Pen Jude Dove Sees dentist today t o assess tooth ICD-9 : 041.00 ICD-10 : A49.1 07/08/2018 Appointment: Kristine Brambila WPtel: [phone] [facility] [facility] 07/08/2018 Patient Education: penicillin V potassiu m- OptimizeRX Coupon [id number] https://www.Honey/MetaPackmd/resources/getResource/61/tq353664-7586-9058-11 fa-[email or web address].pdf Completed 07/08/2018 Visit Diagnosis Plan: Localized enlarged [...] ICD-10 : K04.6 07/02/2018 Appointment: Ivon Sky [address] [place] [address] ACUTE ILLNESS 07/02/2018 Appointment: Kristine Brambila WPtel: [address] [place] [address] LAB 06/22/2018 Appointment: Kristine Brambila WPtel: [address] [place] [address] UA 06/17/2018 Visit Diagnosis Plan: Acute sinusitis, unspecified Discussion: dc keflex. start cefdinir daily for 10 days. saline up nares prn congestion. if no improvement after antibiotics or worsening symtpoms, call clinic. ICD-9 : 461.9 ICD-10 : J01.90 06/02/2018 Appointment: Ivon Sky [address] [place] [address] ACUTE ILLNESS 06/02/2018 Appointment: Kristine Brambila WPtel: [address] [place] [address] [place] INJECTION 05/12/2018 Visit Diagnosis Plan: custodial (current ) use of anticoagulants Discussion: pt/inr [...] ICD-10 : H70.002 05/11/2018 Appointment: Ivon Sky [address] [place] [address] FOLLOW UP 05/11/2018 Appointment: Kristine Brambila WPtel: [phone] [facility]66[facility] LAB 04/30/2018 Visit Diagnosis Plan: Acute sinusitis, unspecified Discussion: 40 mg kenalog given to patient in office. clindamycin prescribed for patient to take as directed. instructed to stop nasal sprays due to worsening pain/irritation and only use saline rinse up nares for now. call with any new or worsening symptoms. ICD-9 : 461.9 ICD-10 : J01.90 04/02/2018 Appointment: Ivon Sky [address] [place] [address] ACUTE ILLNESS 04/02/2018 Patient Education: Patient Medication Summary Completed 04/02/2018 Appointment: Kristine Brambila WPtel: [phone] [facility]66[facility] LAB 03/24/2018 Patient Education: Patient Medication Summary [...] ICD-10 : G43.909 03/16/2018 Appointment: Ivon Sky [address] [place] [address] ACUTE ILLNESS 03/16/2018 Patient Education: Patient Medication Summary Completed 03/16/2018 Appointment: Kristine Brambila WPtel: [address] [place], [place] [phone] [place] LAB 02/24/2018 Patient Education: Patient Medication Summary Completed 02/24/2018 Appointment: Kristine Brambila WPtel: [address] [place], [place] [phone] [place] RESCHEDULED 02/18/2018 Visit Diagnosis Plan: Abdominal distension (gaseous) Discussion: Flagyl Restora Rx 1 daily Follow Up: 2 weeks ICD-9 : 787.3 ICD-10 : R14.0 02/16/2018 Visit Diagnosis Plan: Epigastric pain Discussion: Pepcid BID ICD-9 : 789.06 ICD-10 : R10.13 02/16/2018 Visit Diagnosis Plan: Diarrhea, unspecified Discussion: yl ICD-9 : 787.91 ICD-10 : R19.7 02/16/2018 Appointment: Kristine Brambila WPtel: [address] [place] [address] ACUTE ILLNESS 02/16/2018 Patient Education: Patient Medication Summary Completed 02/16/2018 Appointment: Kristine Brambila WPtel: [address] [place], [place] [phone] [place] INJECTION 02/05/2018 Patient Education: Patient Medication Summary Completed 02/05/2018 Appointment: Kristine Bramibla WPtel: [address] [place], [place] [phone] [place] INJECTION 01/29/2018 Patient Education: Patient Medication Summary Completed 01/29/2018 Appointment: Kristine Brambila WPtel: [address] [place], [place] [phone] [place] INJECTION 01/28/2018 Patient Education: Patient Medication [...] ICD-10 : H66.001 01/26/2018 Appointment: Ivon Sky [address] [place] [address] ACUTE ILLNESS 01/26/2018 Patient Education: Patient Medication [...] ICD-10 : K13.79 01/01/2018 Appointment: Ivon Sky [address] [place] [address] ACUTE ILLNESS 01/01/2018 Patient Education: Patient Medication [...] ICD-10 : G43.909 12/25/2017 Appointment: Ivon Sky [address] [place], [place] [address] ACUTE ILLNESS 12/25/2017 Patient Education: Patient Medication Summary Completed 12/25/2017 Visit Diagnosis Plan: Acute pharyngitis, unspecified Discussion: rapid strep negative. rocephin injection given in office. clindamycin prescribed as well to start tomorrow for 10 days. increase fluid intake. call or rtc next week if new or worsening symptoms. ICD-9 : 462 ICD-10 : J02.9 12/11/2017 Appointment: Ivon Sky [address] [place] [address] ACUTE ILLNESS 12/11/2017 Patient Education: Patient Medication Summary Completed 12/11/2017 Appointment: Kristine Brambila WPtel: [address] [place] [address] [place] LAB 12/01/2017 Patient Education: Patient Medication Summary Completed 12/01/2017 Visit Diagnosis Plan: Encounter for gyne cological examination (general) (routine) without abnormal findings Discussion: Pap done as has a history of choriocarcinoma Had mammogram last month ICD-9 : V72.31 ICD-10 : Z01.419 11/05/2017 Appointment: Kristine Brambila WPtel: [address] [place] [address] Annual Well Visit 11/05/2017 Patient Education: Patient Medication Summary Completed 11/05/2017 Appointment: Kristine Brambila WPtel: [address] [place] [address] LAB 10/14/2017 Patient Education: Patient Medication Summary Completed 10/14/2017 Care Plan: X-RAY EXAM OF SHOULDER right LOINC : 11001-8 Pending 10/07/2017 Visit Diagnosis Plan: Pain in right shoulder Discussion: xray ordered of right shoulder to rule out fracture. 40 mg kenalog given as one shot to assist with pain. 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 ICD-9 : V58.61 ICD-10 : Z79.01 10/06/2017 Appointment: Ivon Sky [address] [place] [address] ACUTE ILLNESS 10/06/2017 Patient Education: Patient Medication [...] : I73.00 10/01/2017 Appointment: Kristine Brambila WPtel: [address] [place] [address] ACUTE ILLNESS 10/01/2017 Patient Education: Patient Medication [...] ICD-10 : T23.262A 09/10/2017 Appointment: Ivon Sky [address] [place] [address] ACUTE ILLNESS 09/10/2017 Patient Education: Patient Medication Summary Completed 09/10/2017 Appointment: Kristine Brambila WPtel: [address] [place] [address] [place] INJECTION 09/05/2017 Patient Education: Patient Medication Summary Completed 09/05/2017 Appointment: Kristine Brambila WPtel: [address] [place] [address] [place] LAB 09/04/2017 Patient Education: Patient Medication Summary Completed 09/04/2017 Appointment: Kristine Brambila WPtel: [address] [place], [place] [phone] [place] LAB 08/07/2017 Patient Education: Patient Medication Summary Completed 08/07/2017 Patient Education: Patient Medication Summary Completed 07/21/2017 Care Plan: CHEST X-RAY 2VW FRONTAL&LATL LOINC : 80520-0 Pending 07/21/2017 Visit Diagnosis Plan: Acute upper [...] ICD-10 : K21.9 07/15/2017 Appointment: Ivon Sky [address] [place] [address] ACUTE ILLNESS 07/15/2017 Patient Education: Patient Medication Summary Completed 07/15/2017 Appointment: Kristine Brambila WPtel: [address] [place], [place] [phone] [place] INJECTION 07/04/2017 Patient Education: Patient Medication Summary Completed 07/04/2017 Appointment: Kristine Brambila WPtel: [address] [place], [place] [phone] [place] INJECTION 07/02/2017 Patient Education: Patient Medication [...] : H66.92 07/01/2017 Appointment: Ivon Sky [address] ACUTE ILLNESS 07/01/2017 Patient Education: Patient Medication Summary Completed 07/01/2017 Care Plan: US EXAM OF HEAD AND NECK Pending 07/01/2017 Appointment: Kristine Brambila WPtel: [phone] [id number] [place] LAB 06/19/2017 Patient Education: Patient Medication [...] : J18.9 05/27/2017 Appointment: Ivon Sky 504 [facility] ACUTE ILLNESS 05/27/2017 Patient Education: Patient Medication [...] : G47.00 05/20/2017 Appointment: [facility] [facility] 05/20/2017 Patient Education: Patient Medication Summary Completed 05/20/2017 Visit Diagnosis Plan: Headache Discu ssion: Discussed likely Migraine Discussed MRI results Discussed changing acetazolamide to HCTZ ICD-9 : 784.0 ICD-10 : R51 04/22/2017 Visit Diagnosis Plan: Diplopia Discu ssion: Updated dilated eye exam ICD-9 : 368.2 ICD-10 : H53.2 04/22/2017 Appointment: Kristine Brambila WPtel: [address] [place] [address] [place] FOLLOW UP 04/22/2017 Patient Education: Patient Medication Summary Completed 04/22/2017 Appointment: Kristine Brambila WPtel: [address] [place] [address] US RESCHEDULED 04/07/2017 Visit Plan: Saline nasal flushes pr n. Tylenol/Motrin prn headache. Notify if persists/symptoms worsening. 04/01/2017 Visit Plan: Saline nasal flushes pr n. Tylenol/Motrin prn headache. Notify if persists/symptoms worsening. 04/01/2017 Visit NOS Plan: Plan Notes: Saline nasal flushes prn. Tyle... 04/01/2017 Visit Diagnosis Plan: Acute sinusitis, unspecified Discussion: Kenalog 40mg IM x1 Decadron/Garamycin Nose [place] Mix Has appointment on April 28 with ENT ICD-9 : 461.9 ICD-10 : J01.90 04/01/2017 Appointment: Kristine Brambila WPtel: [address] [place] [address] ACUTE ILLNESS 04/01/2017 Patient Education: Patient Medication Summary Completed 04/01/2017 Referral: Serjio Lugo WPtel: [address] [address] [place] Referral Appointment Requested 03/20/2017 Patient Education: Patient Medication Summary Completed 02/27/2017 Care Plan: CT ABDOMEN W/O DYE abd/pe lvis stone search LOINC : 79867-6 Pending 02/27/2017 Patient Education: Patient Medication Summary Completed 02/12/2017 Care Plan: MRI NECK SPINE W/O DYE LOINC : 93165-1 Pending 02/12/2017 Appointment: Kristine Brambila WPtel: [address] [place] [address] [place] LAB 02/10/2017 Patient Education: Patient Medication [...] 723.1 ICD-10 : M54.2 02/05/2017 Appointment: Kristine Brambilatel: [address] [place] [address] ACUTE ILLNESS 02/05/2017 Patient Education: Patient Medication Summary Completed 02/05/2017 Care Plan: Referral Order SNOMED-CT : [id number] Pending 02/05/2017 Appointment: Kristine Brambila WPtel: [address] [place], [place] [phone] [place] THROAT SWAB 02/03/2017 Patient Education: Patient Medication Summary Completed 02/03/2017 Appointment: Kristine Brambila WPtel: [address] [place], [place] [phone] [place] 01/13 canceled~sl CANCELED 01/28/2017 Visit Plan: [...] : J02.8 01/13/2017 Appointment: Kristine Brambila WPtel: [address] [place], [place] [phone] ACUTE ILLNESS 01/13/2017 Patient Education: Patient Medication Summary Completed 01/13/2017 Appointment: Kristine Brambila WPtel: [address] [place], [place] [phone] LAB 12/18/2016 Patient Education: Patient Medication Summary Completed 12/18/2016 Visit Diagnosis Plan: Pain in unspecified joint Discussion: Will retry methotrexate since has worked in past to greatly reduce patient's pain--4 tabs week one then 5 tabs week 2 then 6 tabs weekly and fwup in 6 weeks ICD-9 : 719.49 ICD-10 : M25.50 11/27/2016 Appointment: Kristine Brambila WPtel: [address] [place], [place] [phone] 11/26 lm~sl 11/26 confimed~sl MEDICATION REVIEW 11/27/2016 Patient Education: Patient Medication Summary Completed 11/27/2016 Visit Plan: Supportive care. Rest, Fluids, Tylenol/Motrin prn fever or bodyaches. Notify if worsening symptoms. 08/27/2016 Visit Plan: Supportive care. Rest, Fluids, Tylenol/Motrin prn fever or bodyaches. Notify if worsening symptoms. 08/27/2016 Visit NOS Plan: Plan Notes: Support gauri care. Rest, Fluids... 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 Discussion: PT/INR drawn ICD-9 : V58.61 ICD-10 : Z79.01 08/27/2016 Visit Diagnosis Plan: Dysuria Discus steven: Culture urine ICD-9 : 788.1 ICD-10 : R30.0 08/27/2016 Visit Diagnosis Plan: URI, ACUTE Dis cussion: Supportive care ICD-9 : 465.9 ICD-10 : J06.9 08/27/2016 Appointment: Kristine Brambila WPtel: [address] [place], [place] [phone] / confirmed`sl MEDICATION REVIEW 08/27/2016 Patient Education: Patient Medication Summary Completed 08/27/2016 Appointment: Kristine Brambila WPtel: [address] [place], [place] [phone] BP CHECK 07/08/2016 Patient Education: Patient Medication Summary Completed 07/08/2016 Appointment: rKistine Brambila WPtel: [address] [place], [place] [phone] LAB 05/24/2016 Patient Education: Patient Medication Summary Completed 05/24/2016 Appointment: Kristine Brambila WPtel: [address] [place], [place] [phone] 04/24 will not be able to get [...] with culture results 04/23/2016 Appointment: Nayeli Anderson [address] [place], [place] [id number] ACUTE ILLNESS 04/23/2016 Patient Education: Patient [...] oral abx 04/17/2016 Appointment: Nayeli Anderson [address] ACUTE ILLNESS 04/17/2016 Patient Education: Patient Medication Summary Completed 04/17/2016 Patient Education: [facility] - Saving AutoInj - 18-64 - Dynamic Portal ID Completed 04/17/2016 Appointment: Kristine Brambila WPtel: [address] [place] [address] [place] LAB 04/11/2016 Patient Education: Patient Medication [...] for migraines 03/12/2016 Appointment: Kristine Brambila WPtel: [address] [place] [address] 03/12 confirmed-sp FOLLOW UP 03/12/2016 Patient Education: Patient Medication Summary Completed 03/12/2016 Appointment: Kristine Brambila WPtel: [address] [place] [address] LAB 02/12/2016 Patient Education: Patient Medication Summary Completed 02/12/2016 Appointment: Kristine Brambila WPtel: [address] [place], [place] [phone] [place] LAB 02/01/2016 Patient Education: Patient Medication Summary Completed 02/01/2016 Appointment: Kristine Brambila WPtel: [address] [place], [place] [id number] LAB 01/22/2016 Patient Education: Patient Medication [...] improvement 11/10/2015 Appointment: Julee Slater WPtel: [phone] [facility] ACUTE ILLNESS 11/10/2015 Patient Education: [...] care otherwise 11/09/2015 Appointment: Nayeli Anderson 2305 [facility] ACUTE ILLNESS 11/09/2015 Patient Education: Patient Medication Summary Completed 11/09/2015 Referral: Maximiliano Neves WPtel: [address] [id number] [place] Spoke with Sally at Dr. Ta's offic e. Patient is scheduled for 10/16/15 at 3:15pm. Demographics and notes have been faxed. Patient has been informed. -sp Initi ated 10/16/2015 Visit Plan: Proceed with biopsy/rem oval of right posterior neck node Mammogram ordered--US of right axilla if needed 10/10/2015 Appointment: Kristine Brambila WPtel: [phone] [id number] 10/08 confirmed ~sl FOLLOW UP 10/10/2015 Patient Education: Patient Medication Summary Completed 10/10/2015 Patient Education: [facility] - Saving AutoInj - 18-64 - Dynamic Portal ID Completed 10/10/2015 Care Plan: MAMMOGRAM SCREENING LOINC : 08396-7 Pending 10/10/2015 Visit Plan: Labs ordered - [...] with Dr Brambila for next week for machine former management of pain 10/02/2015 Visit Plan: Labs [...] Dr Brambila for next week for 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 management of pain 10/02/2015 Appointment: Nayeli Anderson [address] ACUTE ILLNESS 10/02/2015 Patient Education: Patient Medication Summary Completed 10/02/2015 Patient Education: [facility] - Saving AutoInj - 18-64 - Dynamic Portal ID Completed 10/02/2015 Care Plan: US EXAM OF HEAD AND NECK Pending 10/02/2015 Appointment: Kristine Brambila WPtel: [address] [place], [place] [phone] [place] LAB 09/29/2015 Patient Education: Patient Medication Summary Completed 09/29/2015 Appointment: Kristine Brambila WPtel: [address] [place], [place] [phone] [place] LAB 07/27/2015 Patient Education: Patient Medication Summary Completed 07/27/2015 Visit Plan: Trial of Savella Did no t tolerate lyrica Did not tolerate cymbalta 07/10/2015 Appointment: Kristine Brambila WPtel: [address] [place], [place] [address] 07/10 appt confirmed cn FOLLOW UP 07/10/2015 Patient Education: Patient Medication Summary Completed 07/10/2015 Appointment: Kristine Brambila WPtel: [phone] [id number] [facility] 06/30/2015 Patient Education: Patient Medication Summary Completed 06/30/2015 Visit Plan: Recommended Vitamin E o il topically bid to area of scar. Currently taking Amoxicillin for sinusitis. Recommend Flonase nasal spray 06/27/2015 Visit Plan: Recommended Vitamin E o il topically bid to area of scar. Currently taking Amoxicillin for sinusitis. Recommend Flonase nasal spray 06/27/2015 Appointment: Meli Hatch WPtel: [facility]5 [facility] ACUTE ILLNESS 06/27/2015 Patient Education: Patient Medication Summary Completed 06/27/2015 Appointment: Meli Hatch WPtel: [address] [place], [place] [phone] 06/22/15 appt confirmed and she will drea jose new insurance card cn ACUTE ILLNESS 06/26/2015 Appointment: Kristine Brambila WPtel: [facility]1 [id number] [facility] 06/21/2015 Patient Education: Patient Medication Summary Completed 06/21/2015 Visit Plan: Add cymbalta at 30mg da loli Repeat PT/INR in 2weeks Recheck 1mo Awaiting ID to reschedule 06/08/2015 Visit Plan: Add cymbalta at 30mg da loli Repeat PT/INR in 2weeks Recheck 1mo Awaiting ID to reschedule 06/08/2015 Appointment: Kristine Brambila WPtel: [facility]2 [id number] 06/07 lm ~sl 06/08 confirmed ~sl FOLLOW UP 06/08/2015 Patient Education: Patient Medication Summary Completed 06/08/2015 Patient Education: [facility] - Saving AutoInj - Cymbalta - 18-64 - Dynamic Portal ID Completed 06/08/2015 Patient Education: [facility] Jennifre Azevedo AutoInj - 18-64 - Dynamic Portal ID Completed 06/08/2015 Appointment: Kristine Brambila WPtel: [address] [id number] [place] [address] 05/31/2015 Patient Education: Patient Medication Summary Completed 05/31/2015 Visit Plan: Check PT/INR today Stop ped Lyrica due to fluid retention Has appt. scheduled at [facility] with hematology and infectious disease 06/08 Follow-up appt. in 2 weeks following appt. at . 05/24/2015 Visit Plan: Check PT/INR today Stop ped Lyrica due to fluid retention Has appt. scheduled at [facility] with hematology and infectious disease 06/08 Follow-up appt. in 2 weeks following appt. at . 05/24/2015 Appointment: Meli Hatch WPtel: [id number] [facility]66[facility] NEW PATIENT 05/24/2015 Patient Education: Patient Medication Summary Completed 05/24/2015 Patient Education: [facility] Jennifer Azevedo [employer] - [id number] - Dynamic Portal ID Completed 05/24/2015 Referral: Annamarie Melo WPtel: [facility] [address] Referral Initiated Instructions Comment . Rapid [...] to fluid retention Has appt. scheduled at [facility] with hematology and infectious disease 06/08 Follow-up appt. in 2 weeks following appt. at . . Check PT/INR today Stopped Lyrica due to fluid retention Has appt. scheduled at [facility] with hematology and infectious disease 06/08 [...] Dr Brambila for next week for 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 management of pain . Labs ordered - [...] Dr Brambila for next week for 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 management of pain . Recommended Vitami n [...]
--- OUTSIDE RECORDS SUMMARY | 2020-01-28 13:51 | XMS REPORT | CCD ---
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 Name Role Phone Kristine Brambila D.O., PP Unavailable CCM Unavailable Summary Purpose Interface Exchange Insurance Providers Payer name Policy type / Coverage type Covered constitution party ID Effective Begin Date Effective End Date Blue Cross Blue Shield Blue Cross/Bl ue Shield [id number] 2018 Un known Family History Family History data not found Social History Social History Element Codes Description Effective Dates Tobacco history SNOMED CT: 23414401 Current every day smoker 06/08/2015 Allergies, Adverse [...] ICD-9: 786.2 ICD-10: R05 Active 07/21/2017 Unknown 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 ICD-9: V58.61 ICD-10: [...] 02/10/2017 Unknown Pelvic and perineal pain ICD-9: [id number] ICD-10: R10.2 Active 02/10/2017 Unknown Cervicalgia ICD-9: [...] COUGH ICD-9: 786.2 ICD-10: R05 07/21/2017 Active 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 ICD-9: V58.61 ICD-10: [...] 02/10/2017 Active Pelvic and perineal pain ICD-9: [id number] ICD-10: R10.2 02/10/2017 Active Cervicalgia ICD-9: 723.1 [...] Fill Instructions acetazolamide 125 mg tablet RxNorm: 412588 1 TABLET(S) PO BID 02/15/2019 04/15/2019 Active cholestyramine (with sugar) 4 gram oral powder RxNorm: 013112 1 UNIT DOSE PO QD 02/15/2019 04/15/2019 Ac tive penicillin V potassi um 500 mg tablet RxNorm: 738701 1 Tablet(s) PO BID 02/10/2019 02/09/2019 In active penicillin V potassi um 500 mg tablet RxNorm: 907138 1 Tablet(s) PO BID 02/10/2019 02/16/2019 In active Diflucan 150 mg tablet RxNorm: 573594 TABLET(S) 1 TABLET(S) PO QW NEEDED 02/08/2019 No Stop Date Active Anusol-HC 25 mg rect al suppository RxNorm: 0766732 1 Suppository RTL QD as needed 02/08/2019 03/09/2019 Ac tive hydrocodone 10 mg-ac etaminophen 325 mg tablet RxNorm: 032864 1 Tablet(s) PO Q4-6H as needed for pain 02/01/2019 No Stop Date Active hydrocodone 10 mg-ac etaminophen 325 mg tablet RxNorm: 277951 1 Tablet(s) PO Q4-6H as needed for pain 02/01/2019 No Stop Date Active Diflucan 150 mg tablet RxNorm: 774377 Tablet(s) TABLET(S) 1 TABLET(S) PO QW NEEDED 01/28/2019 No Stop Date Active Vistaril 25 mg capsule RxNorm: 332972 1 Capsule(s) PO TID 01/27/2019 07/25/2019 Active ProAir HFA 90 mcg/ac tuation aerosol inhaler RxNorm: 120270 2 Puff(s) INH Q4H as needed 01/20/2019 No Stop Date Active Tessalon Perles 100 mg capsule RxNorm: 129206 1 Capsule(s) PO TID a s needed for cough 01/20/2019 No Stop Date Active doxycycline hyclate 100 mg capsule RxNorm: 3351105 1 Capsule(s) PO BID 01/20/2019 01/19/2019 In active doxycycline hyclate 100 mg capsule RxNorm: 6074713 1 Capsule(s) PO BID 01/20/2019 01/26/2019 In active Coumadin 5 mg tablet RxNorm: 222415 1 Tablet(s) PO QD (on Fri, , Fri, , Fri and Fri) 01/05/2019 06/09/2019 Active Generic For:COUMADIN 5MG TAB 05/25/2018 3:20:45 PM N O T I C E Last quantity doesn't match original quantity amoxicillin 500 mg c apsule RxNorm: 325014 1 Capsule(s) PO BID 01/05/2019 01/14/2019 Inactive amoxicillin 500 mg c apsule RxNorm: 199249 1 Capsule(s) PO BID 01/05/2019 01/04/2019 Inactive hydrocodone 10 mg-ac etaminophen 325 mg tablet RxNorm: 195511 1 Tablet(s) PO Q4-6H as needed for pain 01/01/2019 01/31/2019 Inactive cyclobenzaprine 10 m g tablet RxNorm: 043631 1 TABLET(S) PO QD NEEDED 12/23/2018 06/20/2019 Ac tive Coumadin 5 mg tablet RxNorm: 392426 Tablet(s) TAKE 1 TABLET(S) BY MOUTH FRI, FRI, FRI, Friday12/23/2018 01/04/2019 Inactive Generic For:COUMADIN 5MG TA B 05/25/2018 3:20:45 PM N O T I C E Last quantity doesn't match original quantity Diflucan 150 mg tablet RxNorm: 988186 Tablet(s) TABLET(S) 1 TABLET(S) PO QW NEEDED 12/23/2018 01/27/2019 Inactive Vitamin D2 50,000 un it capsule RxNorm: 0079512 1 Capsule(s) PO QW 12/04/2018 03/03/2019 Active Medrol (Juan Francisco) 4 mg ta blets in a dose pack RxNorm: 170193 Tablet(s) PO as direc liane 12/04/2018 12/03/2018 In active Vitamin D2 50,000 un it capsule RxNorm: 1523741 1 Capsule(s) PO QW 12/04/2018 12/03/2018 Inactive Medrol (Juan Francisco) 4 mg ta blets in a dose pack RxNorm: 251942 Tablet(s) PO as direc liane 12/04/2018 01/19/2019 In active Zithromax Z-Juan Francisco 250 mg tablet RxNorm: 881873 Tablet(s) PO take as directed 12/02/2018 No Stop Date Active Vistaril 25 mg capsule RxNorm: 660776 Capsule(s) 1 Capsule(s) PO TID as needed for anxiety 11/30/2018 02/27/2019 Active Coumadin 5 mg tablet RxNorm: 650094 Tablet(s) TAKE 1 TABLET(S) BY MOUTH FRI, FRI, FRI, Friday11/30/2018 12/22/2018 Inactive Generic For:COUMADIN 5MG TA B 05/25/2018 3:20:45 PM N O T I C E Last quantity doesn't match original quantity Diflucan 150 mg tablet RxNorm: 905939 Tablet(s) TABLET(S) 1 TABLET(S) PO QW NEEDED 11/26/2018 12/22/2018 Inactive cholestyramine (with sugar) 4 gram oral powder RxNorm: 855004 1 UNIT DOSE PO QD 11/24/2018 02/14/2019 In active acetazolamide 125 mg tablet RxNorm: 370946 1 Tablet(s) PO BID 11/24/2018 02/14/2019 Inactive cyclobenzaprine 10 m g tablet RxNorm: 386406 1 Tablet(s) PO QD as needed 11/17/2018 12/22/2018 In active hydrocodone 10 mg-ac etaminophen 325 mg tablet RxNorm: 832482 1 Tablet(s) PO Q4-6H as needed for pain 11/05/2018 01/31/2019 Inactive acetazolamide 125 mg tablet RxNorm: 237948 1 TABLET(S) PO BID 10/26/2018 11/23/2018 Inactive cholestyramine (with sugar) 4 gram oral powder RxNorm: 259913 1 UNIT DOSE PO QD 10/26/2018 11/23/2018 In active Coumadin 5 mg tablet RxNorm: 637520 TAKE 1 TABLET(S) BY MOUTH FRI, FRI, FRI, Friday10/26/2018 11/29/2018 Inactive Generic For:COUMADIN 5MG TAB 05/25/2018 3:20:45 PM N O T I C E Last quantity doesn't match original quantity Diflucan 150 mg tablet RxNorm: 949502 TABLET(S) 1 TABLET(S) PO QW NEEDED 10/26/2018 11/25/2018 In active hydrocodone 10 mg-ac etaminophen 325 mg tablet RxNorm: 849702 1 Tablet(s) PO Q4-6H as needed for pain 10/08/2018 11/04/2018 Inactive acetazolamide 125 mg tablet RxNorm: 330449 1 Tablet(s) PO BID 09/24/2018 10/23/2018 Inactive Coumadin 5 mg tablet RxNorm: 753011 TAKE 1 TABLET(S) BY MOUTH FRI, FRI, FRI, Friday09/24/2018 10/25/2018 Inactive Generic For:COUMADIN 5MG TAB 05/25/2018 3:20:45 PM N O T I C E Last quantity doesn't match original quantity Diflucan 150 mg tablet RxNorm: 776222 Tablet(s) 1 Tablet(s) PO QW as needed 09/24/2018 10/25/2018 In active cyclobenzaprine 10 m g tablet RxNorm: 008636 1 Tablet(s) PO QD as needed 09/24/2018 11/16/2018 In active Vistaril 25 mg capsule RxNorm: 328115 1 Capsule(s) PO TID as needed for anxiet y 09/24/2018 11/29/2018 In active cholestyramine (with sugar) 4 gram oral powder RxNorm: 288894 1 Unit Dose PO QD 09/24/2018 10/23/2018 In active Pyridium 200 mg tablet RxNorm: 9739964 1 Tablet(s) PO TID 09/10/2018 09/19/2018 Inactive Pyridium 200 mg tablet RxNorm: 3521411 1 Tablet(s) PO TID 09/10/2018 09/09/2018 Inactive hydrocodone 10 mg-ac etaminophen 325 mg tablet RxNorm: 524547 1 Tablet(s) PO Q4-6H as needed for pain 09/08/2018 10/07/2018 Inactive cefdinir 300 mg capsule RxNorm: 476089 1 Capsule(s) PO BID 09/08/2018 09/21/2018 Inactive hydrocodone 10 mg-ac etaminophen 325 mg tablet RxNorm: 447146 1 Tablet(s) PO Q4-6H as needed for pain 08/13/2018 09/07/2018 Inactive cyclobenzaprine 10 m g tablet RxNorm: 153043 1 Tablet(s) PO QD as needed 07/23/2018 09/23/2018 In active Diflucan 150 mg tablet RxNorm: 115315 Tablet(s) 1 Tablet(s) PO QW as needed 07/23/2018 09/23/2018 In active Ciprodex 0.3 %-0.1 % ear drops,suspension RxNorm: 539039 4 Drop(s) left otic ( ear) BID 07/23/2018 07/29/2018 Inactive hydrocodone 10 mg-ac etaminophen 325 mg tablet RxNorm: 553605 1 Tablet(s) PO Q4-6H as needed for pain 07/16/2018 08/12/2018 Inactive penicillin V potassi um 500 mg tablet RxNorm: 111283 1 Tablet(s) PO Q6H 07/08/2018 07/17/2018 In active cyclobenzaprine 10 m g tablet RxNorm: 616445 1 Tablet(s) PO QD as needed 06/22/2018 07/22/2018 In active Vistaril 25 mg capsule RxNorm: 363879 1 Capsule(s) PO TID as needed for anxiet y 06/22/2018 09/23/2018 In active cholestyramine (with sugar) 4 gram oral powder RxNorm: 178500 1 Unit Dose PO QD 06/22/2018 09/23/2018 In active hydrocodone 10 mg-ac etaminophen 325 mg tablet RxNorm: 282224 1 Tablet(s) PO Q4-6H as needed for pain 06/17/2018 07/15/2018 Inactive cefdinir 300 mg capsule RxNorm: 828921 1 Capsule(s) PO BID 06/02/2018 06/11/2018 Inactive Diflucan 150 mg tablet RxNorm: 291094 Tablet(s) 1 Tablet(s) PO QW as needed 06/02/2018 07/22/2018 In active Coumadin 5 mg tablet RxNorm: 917330 TAKE 1 TABLET(S) BY MOUTH FRI, FRI, FRI, Friday05/25/2018 07/15/2018 Inactive Generic For:COUMADIN 5MG TAB 05/25/2018 3:20:45 PM N O T I C E Last quantity doesn't match original quantity Imitrex 50 mg tablet RxNorm: 110614 Tablet(s) 1 Tablet(s) PO at headache. re peat in 2 hours if no relief. no more than 2 tabs per day 05/19/2018 No Stop Date Active cholestyramine (with sugar) 4 gram oral powder RxNorm: 316685 1 Unit Dose PO QD 05/19/2018 11/14/2018 In active Vistaril 25 mg capsule RxNorm: 738370 1 Capsule(s) PO TID 05/19/2018 11/14/2018 Inactive Coumadin 5 mg tablet RxNorm: 381882 Tablet(s) TAKE 1 TABLET(S) BY MOUTH FRI, FRI, FRI, Friday05/19/2018 05/24/2018 Inactive Generic For:COUMADIN 5MG TA B N O T I C E Last quantity doesn't match original quantity acetazolamide 125 mg tablet RxNorm: 694431 1 Tablet(s) PO BID 05/19/2018 09/23/2018 Inactive cyclobenzaprine 10 m g tablet RxNorm: 719671 1 Tablet(s) PO QD as needed 05/19/2018 11/17/2018 In active Coumadin 7.5 mg tablet RxNorm: 377976 1 Tablet(s) PO QD , , 05/19/2018 01/04/2019 In active ketorolac 10 mg tablet RxNorm: 162694 1 Tablet(s) PO QHS as needed 05/11/2018 No Stop Date Active promethazine 12.5 mg tablet RxNorm: 333868 1 Tablet(s) PO Q6H as needed 04/23/2018 04/22/2018 In active acetazolamide 125 mg tablet RxNorm: 860452 1 Tablet(s) PO BID 04/23/2018 05/18/2018 Inactive Coumadin 5 mg tablet RxNorm: 638271 TAKE 1 TABLET(S) BY MOUTH FRI, FRI, FRI, Friday04/23/2018 05/18/2018 Inactive Generic For:COUMADIN 5MG TAB N O T I C E Last quantity doesn't match original quantity Imitrex 50 mg tablet RxNorm: 864818 1 Tablet(s) PO at headache. repeat in 2 hours if no relief. no more than 2 tabs per day 04/23/2018 05/18/2018 Inactive cyclobenzaprine 10 m g tablet RxNorm: 264870 1 Tablet(s) PO QD as needed 04/23/2018 05/18/2018 In active clindamycin HCl 300 mg capsule RxNorm: 914358 1 Capsule(s) PO TID 04/02/2018 04/11/2018 Inactive hydrocodone 10 mg-ac etaminophen 325 mg tablet RxNorm: 651458 1 Tablet(s) PO Q4-6H as needed for pain 03/24/2018 06/16/2018 Inactive promethazine 12.5 mg tablet RxNorm: 167191 1 Tablet(s) PO Q6H 03/23/2018 04/23/2018 Inactive Imitrex 50 mg tablet RxNorm: 541434 1 Tablet(s) PO at headache. repeat in 2 hours if no relief. no more than 2 tabs per day 03/23/2018 04/22/2018 Inactive Diflucan 150 mg tablet RxNorm: 710633 1 Tablet(s) PO QW as needed 03/23/2018 06/01/2018 Inactive Coumadin 5 mg tablet RxNorm: 775119 Tablet(s) 1 Tablet(s) PO Mon, Fri, Fri, Sun 03/23/2018 04/22/2018 In active Imitrex 100 mg tablet RxNorm: 138145 Tablet(s) PO take one tablet at sign of headache and repeat in 2 hours if ineffective 03/16/2018 04/01/2018 Inactive ondansetron HCl 4 mg tablet RxNorm: 106768 1 Tablet(s) PO Q4H as needed for nausea 02/24/2018 04/01/2018 In active hydrocodone 10 mg-ac etaminophen 325 mg tablet RxNorm: 148325 1 Tablet(s) PO Q4-6H as needed for pain 02/24/2018 03/23/2018 Inactive Coumadin 5 mg tablet RxNorm: 402860 Tablet(s) 1 Tablet(s) PO Mon, Wed, Fri, Sun 02/20/2018 03/22/2018 In active promethazine 12.5 mg tablet RxNorm: 037471 1 Tablet(s) PO Q6H 02/20/2018 03/22/2018 Inactive Pepcid 40 mg tablet RxNorm: 610534 1 Tablet(s) PO BID for stomach 02/16/2018 03/17/2018 In active Flagyl 500 mg tablet RxNorm: 323127 1 Tablet(s) PO TID 02/16/2018 02/25/2018 Inactive Imitrex 50 mg tablet RxNorm: 819093 1 Tablet(s) PO at headache. repeat in 2 hours if no relief. no more than 2 tabs per day 01/27/2018 03/15/2018 Inactive Coumadin 5 mg tablet RxNorm: 678655 1 Tablet(s) PO Mon, Wed, Fri, Sun 01/27/2018 02/20/2018 In active amoxicillin 875 mg t ablet RxNorm: 795917 1 Tablet(s) PO BID 01/26/2018 02/04/2018 Inactive Imitrex 50 mg tablet RxNorm: 019504 1 Tablet(s) PO at headache. repeat in 2 hours if no relief. no more than 2 tabs per day 01/26/2018 03/22/2018 Inactive cyclobenzaprine 10 m g tablet RxNorm: 054232 1 Tablet(s) PO QD as needed 01/23/2018 03/23/2018 In active promethazine 12.5 mg tablet RxNorm: 456879 1 Tablet(s) PO Q6H 01/23/2018 02/19/2018 Inactive Diflucan 150 mg tablet RxNorm: 714898 1 Tablet(s) PO QW as needed 01/22/2018 03/22/2018 Inactive acetazolamide 125 mg tablet RxNorm: 923250 1 Tablet(s) PO BID 01/22/2018 04/21/2018 Inactive Imitrex 50 mg tablet RxNorm: 563774 1 Tablet(s) PO at headache. repeat in 2 hours if no relief. no more than 2 tabs per day 01/02/2018 01/25/2018 Inactive Ciprodex 0.3 %-0.1 % ear drops,suspension RxNorm: 192187 4 Drop(s) otic (ear) BID 01/01/2018 01/07/2018 In active Coumadin 7.5 mg tablet RxNorm: 803283 1 Tablet(s) PO QD , Th, 12/29/2017 05/18/2018 In active Coumadin 5 mg tablet RxNorm: 400190 1 Tablet(s) PO Mon, Wed, Fri, Sun 12/29/2017 01/26/2018 In active cyclobenzaprine 10 m g tablet RxNorm: 763412 1 Tablet(s) PO QD as needed 12/29/2017 01/22/2018 In active clindamycin HCl 300 mg capsule RxNorm: 366177 1 Capsule(s) PO TID 12/26/2017 12/25/2017 Inactive Imitrex 50 mg tablet RxNorm: 704853 1 Tablet(s) PO at headache. repeat in 2 hours if no relief. no more than 2 tabs per day 12/26/2017 01/01/2018 Inactive clindamycin HCl 300 mg capsule RxNorm: 470110 1 Capsule(s) PO TID 12/26/2017 01/04/2018 Inactive Zithromax Z-Juan Francisco 250 mg tablet RxNorm: 725792 Tablet(s) PO take as directed 12/25/2017 12/25/2017 In active promethazine 12.5 mg tablet RxNorm: 089906 1 Tablet(s) PO Q6H 12/25/2017 01/22/2018 Inactive clindamycin HCl 300 mg capsule RxNorm: 742221 1 Capsule(s) PO TID 12/11/2017 12/17/2017 Inactive Vistaril 25 mg capsule RxNorm: 901115 1 Capsule(s) PO TID as needed for anxiet y 12/04/2017 05/18/2018 In active cholestyramine (with sugar) 4 gram oral powder RxNorm: 801488 1 Unit Dose PO QD 12/04/2017 05/18/2018 In active Coumadin 7.5 mg tablet RxNorm: 609059 1 Tablet(s) PO QD 12/04/2017 12/28/2017 Inactive Coumadin 5 mg tablet RxNorm: 431004 1 Tablet(s) PO Friday through Friday12/04/2017 12/28/2017 In active hydrocodone 10 mg-ac etaminophen 325 mg tablet RxNorm: 559937 1 Tablet(s) PO Q4-6H as needed for pain 12/01/2017 02/23/2018 Inactive hydrocodone 10 mg-ac etaminophen 325 mg tablet RxNorm: 751265 1 Tablet(s) PO Q4-6H as needed for pain 11/03/2017 11/30/2017 Inactive cyclobenzaprine 10 m g tablet RxNorm: 433308 1 Tablet(s) PO QD as needed 10/30/2017 12/28/2017 In active cholestyramine (with sugar) 4 gram oral powder RxNorm: 763697 1 Unit Dose PO QD 10/30/2017 11/28/2017 In active amoxicillin 875 mg t ablet RxNorm: 855688 1 Tablet(s) PO BID 10/08/2017 10/07/2017 Inactive amoxicillin 875 mg t ablet RxNorm: 256367 1 Tablet(s) PO BID 10/08/2017 10/17/2017 Inactive penicillin V potassi um 500 mg tablet RxNorm: 528062 1 Tablet(s) PO BID 10/06/2017 10/07/2017 In active hydrocodone 10 mg-ac etaminophen 325 mg tablet RxNorm: 123408 1 Tablet(s) PO Q4-6H as needed for pain 10/06/2017 11/02/2017 Inactive hydrocodone 10 mg-ac etaminophen 325 mg tablet RxNorm: 789870 1 Tablet(s) PO Q4-6H as needed for pain 10/06/2017 12/31/2018 Inactive Vigamox 0.5 % eye drops RxNorm: 815122 1 Drop(s) ophthalmic (eye) TID ONLY ADMI NISTER IF INFECTION 10/03/2017 10/02/2017 Inactive Vigamox 0.5 % eye drops RxNorm: 171170 1 Drop(s) ophthalmic (eye) TID ONLY ADMI NISTER IF INFECTION 10/03/2017 10/09/2017 Inactive cholestyramine (with sugar) 4 gram oral powder RxNorm: 635114 1 Unit Dose PO QD 09/23/2017 10/30/2017 In active acetazolamide 125 mg tablet RxNorm: 312478 1 Tablet(s) PO BID 09/23/2017 12/21/2017 Inactive Coumadin 5 mg tablet RxNorm: 983712 1 Tablet(s) PO QD FRIDAY THROUGH Friday09/17/2017 11/04/2017 In active mupirocin 2 % topica l ointment RxNorm: 662908 1 Application TOP TID 09/10/2017 11/04/2017 Inactive hydrocodone 10 mg-ac etaminophen 325 mg tablet RxNorm: 903551 1 Tablet(s) PO Q4-6H as needed for pain 09/08/2017 10/05/2017 Inactive Questran 4 gram powd er for susp in a packet RxNorm: 038459 MIX ONE PACKET IN 6 O UNCES OF APPLE SAUCE OR OTHER SOFT FOOD AND EAT ONCE DAILY 09/02/2017 11/04/2017 Inactive Diflucan 150 mg tablet RxNorm: 871771 1 Tablet(s) PO QW as needed 08/14/2017 01/21/2018 Inactive hydrocodone 10 mg-ac etaminophen 325 mg tablet RxNorm: 926194 1 Tablet(s) PO Q4-6H as needed for pain 08/11/2017 09/07/2017 Inactive Tamiflu 75 mg capsule RxNorm: 745186 1 Capsule(s) PO QD 08/11/2017 08/10/2017 Inactive Tamiflu 75 mg capsule RxNorm: 050356 1 Capsule(s) PO QD 08/11/2017 08/20/2017 Inactive Coumadin 5 mg tablet RxNorm: 780948 1 Tablet(s) PO QD FRIDAY THROUGH Friday07/22/2017 09/16/2017 In active Coumadin 5 mg tablet RxNorm: 653232 TAKE ONE TABLET BY MOUTH ONCE DAILY THROUGH Friday07/16/2017 07/21/2017 Inactive cyclobenzaprine 10 m g tablet RxNorm: 399349 1 Tablet(s) PO QD as needed 07/15/2017 10/30/2017 In active hydrocodone 10 mg-ac etaminophen 325 mg tablet RxNorm: 510023 1 Tablet(s) PO Q4-6H as needed for pain 07/14/2017 08/10/2017 Inactive warfarin 5 mg tablet RxNorm: 914672 1 Tablet(s) PO Fri Slick ford is due for PT/INR 06/18/2017 07/15/2017 Inactive Questran Light 4 gra m powder for susp in a packet RxNorm: 3080852 1 PO QD 06/18/2017 11/04/2017 In active cyclobenzaprine 10 m g tablet RxNorm: 277808 1 Tablet(s) PO QD as needed 06/18/2017 07/14/2017 In active hydrocodone 10 mg-ac etaminophen 325 mg tablet RxNorm: 545300 1 Tablet(s) PO Q4-6H as needed for pain 06/18/2017 07/13/2017 Inactive Lunesta 1 mg tablet RxNorm: 772554 1 Tablet(s) PO QHS as needed 05/27/2017 06/25/2017 Inactive Zithromax Z-Juan Francisco 250 mg tablet RxNorm: 581610 1 Tablet(s) PO Take a s directed 05/27/2017 11/04/2017 In active ProAir HFA 90 mcg/ac tuation aerosol inhaler RxNorm: 951529 2 Puff(s) INH Q4H 05/27/2017 01/19/2019 In active ProAir HFA 90 mcg/ac tuation aerosol inhaler RxNorm: 109786 2 Puff(s) INH Q4H 05/27/2017 05/26/2017 In active promethazine 6.25 mg -codeine 10 mg/5 mL syrup RxNorm: 601733 5 Milliliter(s) PO Q4 H as needed 05/27/2017 11/04/2017 Inactive Diflucan 150 mg tablet RxNorm: 324254 1 Tablet(s) PO QW as needed 05/26/2017 05/25/2017 Inactive cyclobenzaprine 10 m g tablet RxNorm: 036268 1 Tablet(s) PO QD as needed 05/20/2017 06/18/2017 In active Lunesta 2 mg tablet RxNorm: 602552 1 Tablet(s) PO QHS 05/20/2017 05/27/2017 Inactive Zithromax Z-Juan Francisco 250 mg tablet RxNorm: 751415 Tablet(s) PO As Direc liane 05/12/2017 05/19/2017 In active cyclobenzaprine 5 mg tablet RxNorm: 556914 1 Tablet(s) PO QPM 03/28/2017 05/19/2017 Inactive Vistaril 25 mg capsule RxNorm: 641954 1 Capsule(s) PO TID as needed for anxiet y 03/28/2017 09/23/2017 In active Questran 4 gram powd er for susp in a packet RxNorm: 948302 1 Unit(s) PO QD 03/06/2017 06/18/2017 In active Cipro 500 mg tablet RxNorm: 911060 1 Tablet(s) PO BID 02/27/2017 02/26/2017 Inactive Pyridium 200 mg tablet RxNorm: 5495918 1 Tablet(s) PO TID for bladder spasms 02/27/2017 03/31/2017 In active Cipro 500 mg tablet RxNorm: 299101 1 Tablet(s) PO BID 02/27/2017 03/05/2017 Inactive Levsin 0.125 mg tablet RxNorm: 2605190 1 Tablet(s) PO QID as needed for spasm 02/25/2017 11/04/2017 In active tamsulosin 0.4 mg ca psule RxNorm: 315533 1 Capsule(s) PO QPM 02/25/2017 03/26/2017 Inactive tamsulosin 0.4 mg ca psule RxNorm: 855291 1 Capsule(s) PO QPM 02/25/2017 02/24/2017 Inactive Pyridium 100 mg tablet RxNorm: 4323698 1 Tablet(s) PO TID as needed 02/21/2017 03/31/2017 In active acetazolamide 125 mg tablet RxNorm: 006671 1 Tablet(s) PO BID 02/07/2017 09/23/2017 Inactive Questran 4 gram powd er for susp in a packet RxNorm: 955585 1 Unit(s) PO QD 02/06/2017 03/06/2017 In active cyclobenzaprine 5 mg tablet RxNorm: 465582 1 Tablet(s) PO QPM 02/05/2017 03/27/2017 Inactive BuSpar 5 mg tablet RxNorm: 111776 1 Tablet(s) PO BID 02/03/2017 03/31/2017 Inactive Diflucan 150 mg tablet RxNorm: 065434 1 Tablet(s) PO QW as needed 01/15/2017 05/26/2017 Inactive Valtrex 1 gram tablet RxNorm: 093999 1 Tablet(s) PO TID 01/13/2017 01/19/2017 Inactive Vistaril 25 mg capsule RxNorm: 411415 1 Capsule(s) PO TID as needed for anxiet y 01/13/2017 03/27/2017 In active hydrocodone 10 mg-ac etaminophen 325 mg tablet RxNorm: 988964 1 Tablet(s) PO Q4-6H as needed for pain 01/13/2017 06/17/2017 Inactive Questran 4 gram powd er for susp in a packet RxNorm: 516754 1 Unit(s) PO QD 01/13/2017 09/23/2017 In active acetazolamide 125 mg tablet RxNorm: 742143 1 Tablet(s) PO BID 01/13/2017 02/06/2017 Inactive methotrexate (PF) 20 mg/0.4 mL subcutaneous auto-injector RxNorm: 8353082 Milliliter(s) SQ QW 12/26/2016 01/05/2017 Inactive Compazine 10 mg tablet RxNorm: 853128 1 Tablet(s) PO TID as needed for nausea 12/18/2016 11/04/2017 In active hydrocodone 10 mg-ac etaminophen 325 mg tablet RxNorm: 071667 1 Tablet(s) PO Q4-6H as needed for pain 12/17/2016 01/12/2017 Inactive Questran 4 gram powd er for susp in a packet RxNorm: 617037 1 Unit(s) PO QD 12/17/2016 01/13/2017 In active cyclobenzaprine 5 mg tablet RxNorm: 374717 1 Tablet(s) PO QPM 12/17/2016 02/05/2017 Inactive Questran Light 4 gra m powder for susp in a packet RxNorm: 9921085 1 PO QD 11/29/2016 06/17/2017 In active Zofran ODT 4 mg disi ntegrating tablet RxNorm: 307063 1 Tablet(s) PO Q4H as needed for nausea 11/29/2016 12/17/2016 Inactive methotrexate sodium 2.5 mg tablet RxNorm: 791657 4 Tablet(s) PO week 1 then 5 tablets po week 2 then 6 tablets weekly 11/27/2016 12/25/2016 Inactive warfarin 7.5 mg tablet RxNorm: 104657 1 Tablet(s) PO three times weekly 11/14/2016 03/31/2017 In active warfarin 7.5 mg tablet RxNorm: 789696 1 Tablet(s) PO three times weekly 11/13/2016 11/13/2016 In active Diflucan 150 mg tablet RxNorm: 350094 1 Tablet(s) PO QW as needed 11/05/2016 01/14/2017 Inactive Vistaril 25 mg capsule RxNorm: 662234 1 Capsule(s) PO TID as needed for anxiet y 11/04/2016 11/03/2016 In active Coumadin 5 mg tablet RxNorm: 432938 1 Tablet(s) PO Friday through Friday11/04/2016 06/18/2017 In active acetazolamide 125 mg tablet RxNorm: 039225 1 Tablet(s) PO BID 11/04/2016 01/13/2017 Inactive sumatriptan 100 mg t ablet RxNorm: 269932 1 Tablet(s) PO at hea dache onset. May repeat in 2 hours if headache remains 11/04/2016 11/04/2017 Inactive Vistaril 25 mg capsule RxNorm: 854075 1 Capsule(s) PO TID as needed for anxiet y 11/04/2016 01/12/2017 In active hydrocodone 10 mg-ac etaminophen 325 mg tablet RxNorm: 240069 1 Tablet(s) PO Q4-6H as needed for pain 11/04/2016 12/16/2016 Inactive Coumadin 5 mg tablet RxNorm: 560586 TAKE ONE TABLET BY MOUTH ON SUN., MON., WED., AND FRI., AND TAKE ONE AND ONE-HALF TABLETS TUE., TH., AND 10/16/2016 10/25/2016 In active Coumadin 5 mg tablet RxNorm: 469402 1 Tablet(s) PO Friday through Friday10/15/2016 11/03/2016 In active hydrocodone 10 mg-ac etaminophen 325 mg tablet RxNorm: 224090 1 Tablet(s) PO Q4-6H as needed for pain 10/14/2016 11/03/2016 Inactive hydrocodone 10 mg-ac etaminophen 325 mg tablet RxNorm: 794893 1 Tablet(s) PO Q4-6H as needed for pain 09/20/2016 10/13/2016 Inactive warfarin 7.5 mg tablet RxNorm: 731543 1 Tablet(s) PO three times weekly 09/20/2016 11/12/2016 In active Diflucan 150 mg tablet RxNorm: 828594 1 Tablet(s) PO QW as needed 08/20/2016 11/04/2016 Inactive acetazolamide 125 mg tablet RxNorm: 161400 1 Tablet(s) PO BID 08/20/2016 11/04/2016 Inactive Diflucan 150 mg tablet RxNorm: 399908 1 Tablet(s) PO QW as needed 08/20/2016 08/19/2016 Inactive Vistaril 25 mg capsule RxNorm: 912859 Capsule(s) TAKE ONE CAPSULE BY MOUTH THR EE TIMES DAILY NEEDED FOR ANXIETY 08/19/2016 11/04/2016 Inactive hydrocodone 10 mg-ac etaminophen 325 mg tablet RxNorm: 712191 1 Tablet(s) PO Q4-6H as needed for pain 08/05/2016 09/19/2016 Inactive Diflucan 150 mg tablet RxNorm: 617413 1 Tablet(s) PO QW as needed 07/19/2016 08/19/2016 Inactive tizanidine 4 mg tablet RxNorm: 314194 1-2 Tablet(s) PO QHS as needed for muscl e spasm and sleep 06/03/2016 06/10/2016 Inactive Questran Light 4 gra m powder for susp in a packet RxNorm: 3624683 1 PO QD 05/14/2016 08/11/2016 In active Macrobid 100 mg capsule RxNorm: 537211 1 Capsule(s) PO BID 04/23/2016 05/02/2016 Inactive mupirocin 2 % topica l ointment RxNorm: 955492 Apply topically to af fected area 2-3 times daily 04/17/2016 07/07/2016 Inactive Vistaril 25 mg capsule RxNorm: 930564 TAKE ONE CAPSULE BY MOUTH THREE TIMES DA LOLI NEEDED FOR ANXIETY 04/17/2016 11/04/2016 Inactive Diflucan 150 mg tablet RxNorm: 715792 1 Tablet(s) PO QW as needed 04/16/2016 07/18/2016 Inactive cyclobenzaprine 5 mg tablet RxNorm: 387034 TAKE ONE TABLET BY [facility] ONCE DAILY IN THE EVENING 03/25/2016 12/17/2016 Inactive Pyridium 100 mg tablet RxNorm: 8723449 1 Tablet(s) PO TID as needed 03/20/2016 03/19/2016 In active Diflucan 150 mg tablet RxNorm: 076003 1 Tablet(s) PO QW as needed 03/20/2016 04/15/2016 Inactive Pyridium 100 mg tablet RxNorm: 3579188 1 Tablet(s) PO TID as needed 03/20/2016 08/26/2016 In active Diflucan 150 mg tablet RxNorm: 699911 1 Tablet(s) PO QW as needed 03/19/2016 03/19/2016 Inactive Coumadin 7.5 mg tablet RxNorm: 593912 1 Tablet(s) PO QD 03/14/2016 05/12/2016 Inactive acetazolamide 125 mg tablet RxNorm: 590701 1 Tablet(s) PO BID 02/28/2016 08/20/2016 Inactive Coumadin 5 mg tablet RxNorm: 551473 1 TABLET(S) PO QD THREE TIMES A WEEK AND 1 1/2 TAB (7.5MG) FOUR TIMES A WEEK 02/28/2016 03/13/2016 Inactive Questran Light 4 gra m powder for susp in a packet RxNorm: 6422163 1 PO QD 02/13/2016 05/12/2016 In active Diflucan 150 mg tablet RxNorm: 275873 1 Tablet(s) PO QW as needed 01/19/2016 03/11/2016 Inactive Diflucan 150 mg tablet RxNorm: 898450 1 Tablet(s) PO QW as needed 01/18/2016 01/18/2016 Inactive promethazine 25 mg t ablet RxNorm: 243286 1 Tablet(s) PO Q4H as needed for nausea 12/05/2015 12/17/2016 In active Imitrex 100 mg tablet RxNorm: 339866 1 Tablet(s) PO at headache onset and may repeat in 2 hours if needed 12/05/2015 03/31/2017 Inactive Diflucan 150 mg tablet RxNorm: 780443 1 Tablet(s) PO QW as needed 11/24/2015 01/17/2016 Inactive Diflucan 150 mg tablet RxNorm: 081564 1 Tablet(s) PO QW as needed 11/21/2015 11/23/2015 Inactive Coumadin 5 mg tablet RxNorm: 385800 1 Tablet(s) PO QD three times a week and 1 1/2 tab (7.5mg) four times a week 11/13/2015 02/01/2016 Inactive Questran Light 4 gra m powder for susp in a packet RxNorm: 160872 1 PO QD 11/13/2015 02/10/2016 In active acetazolamide 125 mg tablet RxNorm: 701828 1 Tablet(s) PO BID 11/13/2015 02/10/2016 Inactive amoxicillin 875 mg t ablet RxNorm: 517216 1 Tablet(s) PO BID 11/09/2015 11/18/2015 Inactive Coumadin 7.5 mg tablet RxNorm: 509397 1 Tablet(s) PO on and 10/26/2015 10/25/2015 In active Coumadin 7.5 mg tablet RxNorm: 055531 1 Tablet(s) PO on and 10/26/2015 11/12/2015 In active Coumadin 5 mg tablet RxNorm: 064822 1 Tablet(s) PO Friday, Friday, Friday and Friday. 1.5 tablets Friday, and Friday. 10/26/2015 10/25/2015 Inactive Coumadin 5 mg tablet RxNorm: 081972 1 Tablet(s) PO Friday, Friday, Friday , and Friday. Take 1 1/2 on Friday, and Friday10/26/2015 11/12/2015 Inactive Coumadin 7.5 mg tablet RxNorm: 828198 1 Tablet(s) PO on and 10/26/2015 10/26/2015 In active Coumadin 5 mg tablet RxNorm: 454681 1 Tablet(s) PO Friday, Friday, Friday and Friday. 1.5 tablets Friday, and Friday. 10/26/2015 02/14/2016 Inactive Vistaril 25 mg capsule RxNorm: 200694 1 Capsule(s) PO TID as needed for anxiet y 10/10/2015 04/06/2016 In active cyclobenzaprine 5 mg tablet RxNorm: 311816 1 Tablet(s) PO QPM 10/10/2015 03/24/2016 Inactive Vistaril 25 mg capsule RxNorm: 814620 1 Capsule(s) PO TID as needed for anxiet y 10/10/2015 10/09/2015 In active cyclobenzaprine 5 mg tablet RxNorm: 989058 1 Tablet(s) PO QPM 10/10/2015 10/09/2015 Inactive Coumadin 5 mg tablet RxNorm: 235243 1 Tablet(s) PO Friday, Friday, Friday and Friday. 1.5 tablets Friday, and Friday. 10/02/2015 10/01/2015 Inactive Coumadin 5 mg tablet RxNorm: 263146 1 Tablet(s) PO Friday, Friday, Friday and Friday. 1.5 tablets Friday, and Friday. 10/02/2015 10/25/2015 Inactive amoxicillin 500 mg t ablet RxNorm: 657669 1 Tablet(s) PO TID 10/02/2015 10/11/2015 Inactive hydrocodone 10 mg-ac etaminophen 325 mg tablet RxNorm: 922382 1 Tablet(s) PO Q4-6H as needed for pain 10/02/2015 08/04/2016 Inactive Diflucan 150 mg tablet RxNorm: 437322 1 Tablet(s) PO QW as needed 10/02/2015 10/01/2015 Inactive amoxicillin 500 mg t ablet RxNorm: 753586 1 Tablet(s) PO TID 10/02/2015 10/01/2015 Inactive Diflucan 150 mg tablet RxNorm: 678391 1 Tablet(s) PO QW as needed 10/02/2015 10/09/2015 Inactive Coumadin 5 mg tablet RxNorm: 551505 1 Tablet(s) PO Mon.,Wed.,Fri., Sat. and Sun. 09/14/2015 10/01/2015 Inactive acetazolamide 125 mg tablet RxNorm: 757448 1 Tablet(s) PO BID 09/14/2015 11/12/2015 Inactive hydrocodone 10 mg-ac etaminophen 325 mg tablet RxNorm: 666603 1 Tablet(s) PO Q4-6H as needed for pain 09/01/2015 10/01/2015 Inactive Vistaril 25 mg capsule RxNorm: 617626 1 Capsule(s) PO TID as needed for anxiet y 08/24/2015 09/22/2015 In active baclofen 10 mg tablet RxNorm: 721692 1/2 Tablet(s) PO QAM and 1 tablet at bed time 07/27/2015 10/09/2015 Inactive Vistaril 25 mg capsule RxNorm: 248550 1 Capsule(s) PO BID 07/24/2015 08/22/2015 Inactive Savella 12.5 mg (5)- 25 mg(8)-50mg(42) tablets in a dose pack RxNorm: 318941 Tablet(s) PO as directed 07/10/2015 07/26/2015 Inactive hydrocodone 10 mg-ac etaminophen 325 mg tablet RxNorm: 753899 1 Tablet(s) PO Q6H as needed for pain 06/29/2015 08/10/2015 Inactive Coumadin 7.5 mg tablet RxNorm: 821607 1 Tablet(s) PO on and 06/21/2015 10/25/2015 In active Vistaril 25 mg capsule RxNorm: 782850 1 Capsule(s) PO BID 06/20/2015 07/24/2015 Inactive Cymbalta 30 mg capsu le,delayed release RxNorm: 644548 1 Capsule(s) PO QD 06/08/2015 07/09/2015 In active Coumadin 5 mg tablet RxNorm: 041313 1 Tablet(s) PO Mon.,Wed.,Fri., Sat. and Sun. 06/08/2015 07/07/2015 Inactive Coumadin 5 mg tablet RxNorm: 288245 1 Tablet(s) PO Mon.,Wed.,Fri., Sat. and Sun. 05/24/2015 06/07/2015 Inactive Coumadin 7.5 mg tablet RxNorm: 696714 1 Tablet(s) PO on and 05/24/2015 06/20/2015 In active Coumadin 7.5 mg tablet RxNorm: 367997 1 Tablet(s) PO on Friday No Start Date Active Vitamin B12 1000mcg Tablet RxNorm: 1/2 Tablet(s) PO QD No Start Date Active Bystolic 10 mg tablet RxNorm: 723164 3 Tablet(s) PO QAM No Start Date Active Vitamin D3 5,000 uni t tablet RxNorm: 965333 1 Tablet(s) PO QD No Start Date Active Bystolic 5 mg tablet RxNorm: 895067 1 Tablet(s) PO NOON No Start Date Active sumatriptan 100 mg t ablet RxNorm: 997021 1 Tablet(s) PO at hea dache onset. May repeat in 2 hours if headache remains No Start Date 11/03/2016 Inactive warfarin 7.5 mg tablet RxNorm: 537038 1 Tablet(s) PO three times weekly No Start Date 09/19/2016 Inactive ondansetron HCl 4 mg tablet RxNorm: 763590 1 Tablet(s) PO Q4H as needed for nausea No Start Date 02/23/2018 Inactive Imitrex 100 mg tablet RxNorm: 926952 1 Tablet(s) PO at headache onset and may repeat in 2 hours if needed No Start Date 12/04/2015 Inactive Vitamin B12 1000mcg Tablet RxNorm: 1/2 Tablet(s) PO on Tues, T hurs, Sat and Sun and 1 tab all other days No Start Date 04/01/2018 Inactive baclofen 10 mg tablet RxNorm: 289845 1/2 Tablet(s) PO QAM and 1 tablet at bed time No Start Date 07/26/2015 Inactive tizanidine 4 mg tablet RxNorm: 004783 1-2 Tablet(s) PO QHS as needed for muscl e spasm and sleep No Start Date 06/02/2016 Inactive Flexeril 5 mg tablet RxNorm: 222149 1 Tablet(s) PO QD No Start Date 10/09/2015 Inactive methotrexate (PF) 20 mg/0.4 mL subcutaneous auto-injector RxNorm: 8605729 SQ QW No Start Date 12/25/2016 Inactive Bystolic 5 mg tablet RxNorm: 920713 1 Tablet(s) PO as needed No Start Date 03/15/2018 Inactive Questran Light 4 gra m powder for susp in a packet RxNorm: 503079 1 PO QD No Start Date 11/12/2015 Inactive Bystolic 10 mg tablet RxNorm: 513902 1 Tablet(s) PO QAM No Start Date 11/04/2017 Inactive warfarin 5 mg tablet RxNorm: 408573 1 Tablet(s) PO Fri Sat Sun No Start Date 06/17/2017 Inactive hydrocodone 10 mg-ac etaminophen 325 mg tablet RxNorm: 517602 1 Tablet(s) PO 4-6hou rs as needed for pain No Start Date 08/31/2015 Inactive cyclobenzaprine 5 mg tablet RxNorm: 094946 1 Tablet(s) PO QPM No Start Date 12/16/2016 Inactive Lovenox 100 mg/mL carmona bcutaneous syringe RxNorm: 038355 1 Milliliter(s) SQ QD No Start Date 06/07/2015 Inactive Levsin 0.125 mg tablet RxNorm: 9750402 1 Tablet(s) PO QID as needed for spasm No Start Date 02/24/2017 Inactive Savella 12.5 mg (5)- 25 mg(8)-50mg(42) tablets in a dose pack RxNorm: 272983 Tablet(s) PO as directed No Start Date 07/09/2015 Inactive Coumadin 10 mg tablet RxNorm: 737863 1 Tablet(s) PO QD No Start Date 2015 Inactive tramadol 50 mg tablet RxNorm: 784809 1 Tablet(s) PO TID as needed for pain No Start Date 03/31/2017 Inactive BuSpar 5 mg tablet RxNorm: 222332 1 Tablet(s) PO BID No Start Date 02/02/2017 Inactive Vistaril 25 mg capsule RxNorm: 067199 1 Capsule(s) PO BID No Start Date 06/19/2015 Inactive Tessalon Perles 100 mg capsule RxNorm: 332690 1 Capsule(s) PO TID a s needed for cough No Start Date 01/19/2019 Inactive promethazine 12.5 mg tablet RxNorm: 678042 1 Tablet(s) PO Q6H as needed No Start Date 04/22/2018 Inactive Coumadin 7.5 mg tablet RxNorm: 638464 1 Tablet(s) PO Sat and Friday No Start Date 03/13/2016 Inactive Imitrex 50 mg tablet RxNorm: 989208 1 Tablet(s) PO at headache. repeat in 2 hours if no relief. no more than 2 tabs per day No Start Date 12/25/2017 Inactive acetazolamide 125 mg tablet RxNorm: 170870 1 Tablet(s) PO BID No Start Date 09/13/2015 Inactive methotrexate (PF) 12 .5 mg/0.4 mL subcutaneous auto-injector RxNorm: 2159988 1 Milliliter(s) SQ QW No Start Date 03/31/2017 Inactive Bystolic 10 mg tablet RxNorm: 701957 1 Tablet(s) PO QAM No Start Date 03/25/2018 Inactive Zithromax Z-Juan Francisco 250 mg tablet RxNorm: 892262 Tablet(s) PO As Direc liane No Start Date 05/11/2017 Inactive Bystolic 20 mg tablet RxNorm: 876501 1 Tablet(s) PO QD No Start Date 03/15/2018 Inactive Questran 4 gram powd er for susp in a packet RxNorm: 829805 1 Unit(s) PO QD No Start Date 12/16/2016 Inactive Vitamin D3 1,000 uni t tablet RxNorm: 167508 1 Tablet(s) PO QD No Start Date 04/01/2018 Inactive Coumadin 5 mg tablet RxNorm: 158144 1 Tablet(s) PO Friday through Friday No Start Date 03/13/2016 Inactive warfarin 5 mg tablet RxNorm: 137912 1 Tablet(s) PO four days per week No Start Date 04/01/2018 Inactive ProAir HFA 90 mcg/ac tuation aerosol inhaler RxNorm: 562130 2 Puff(s) INH Q4H as needed No Start Date 01/19/2019 Inactive Bystolic 5 mg tablet RxNorm: 155184 1 Tablet(s) PO QHS No Start Date 03/25/2018 Inactive Compazine 10 mg tablet RxNorm: 364037 1 Tablet(s) PO TID as needed for nausea No Start Date 12/17/2016 Inactive Pyridium 200 mg tablet RxNorm: 2494415 1 Tablet(s) PO TID for bladder spasms No Start Date 02/26/2017 Inactive hydrocodone 10 mg-ac etaminophen 325 mg tablet RxNorm: 256944 1 Tablet(s) PO as nee ded No Start Date 06/28/2015 Inactive warfarin 7.5 mg tablet RxNorm: 021719 1 Tablet(s) PO on Friday and No Start Date 04/01/2018 Inactive promethazine 25 mg t ablet RxNorm: 265895 1 Tablet(s) PO Q4H as needed for nausea No Start Date 12/04/2015 Inactive Lovenox 30 mg/0.3 mL subcutaneous syringe RxNorm: 320052 1 Milliliter(s) SQ QD No Start Date [...] 01/19/2019 COUGH ICD-10: R05 ICD-9: 786.2 01/19/2019 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 ICD-10: Z79.01 ICD-9: [...] and perineal pain ICD-10: R10 .2 ICD-9: [id number] 02/10/2017 Hematuria, unspecified ICD-10: R31.9 ICD-9: 599.70 [...] Code Result Date ANTI STREPTOLYSIN O TITER(ASO) 55728 ASO Titr 110 IU/mL 9 MYCOPLASMA ANTIBODY, IFA 99151U5 Mycoplas Ab IgG 1:64 01/20/2019 MYCOPLASMA ANTIBODY, IFA [id number] Mycoplas Ab IgM <1:10 01/20/2019 MYCOPLASMA ANTIBODY, IFA 55272U4 Mycoplasma Intp See Below 01/20/2019 LEGIONELLA [id number] Reynaldo avitia Ab <1:128 01/20/2019 HEPATIC FUNCTION PANEL A 74537 Total Protein 6.3 g/dL 01/19/2019 HEPATIC FUNCTION PANEL A 67793 AST 16 U/L 01/19/2019 HEPATIC FUNCTION PANEL A 80437 ALK PHOS 52 U/L 01/19/2019 HEPATIC FUNCTION PANEL A 63013 Bili Total 0.2 mg/dL 01/19/2019 HEPATIC FUNCTION PANEL A 92890 ALT 20 U/L 01/19/2019 HEPATIC FUNCTION PANEL A 52963 ALBUMIN 4.3 g/dL 01/19/2019 HEPATIC FUNCTION PANEL A 53643 Bili Direct 0.1 mg/dL 01/19/2019 PT 6081126 PT 27.5 Seconds 01/19/2019 PT 1439689 INR 2.6 01/19/2019 COMPLETE BLOOD COUNT 2254719 WBC 11.1 10e9/L 01/19/2019 COMPLETE BLOOD COUNT 8464457 RBC 4.14 10e12/L 9 COMPLETE BLOOD COUNT 2008898 HEMOGLOBIN 13.9 g/dL 01/19/2019 COMPLETE BLOOD COUNT 2731676 HEMATOCRIT 40.7 % 01/19/2019 COMPLETE BLOOD COUNT 7455847 MCV 98.3 fL 01/19/2019 COMPLETE BLOOD COUNT 6305880 MCH 33.6 pg 01/19/2019 COMPLETE BLOOD COUNT 1668473 MCHC 34.2 g/dL 01/19/2019 COMPLETE BLOOD COUNT 5926184 PLATELET COUNT 334 10e9/L 01/19/2019 COMPLETE BLOOD COUNT 5087917 Mean Plt Volume 8.9 fL 01/19/2019 COMPLETE BLOOD COUNT 5094399 Neut Auto 60.2 % 01/19/2019 COMPLETE BLOOD COUNT 8371726 Lymph Auto 32.5 % 01/19/2019 COMPLETE BLOOD COUNT 1107280 [place] Auto 6.1 % 01/19/2019 COMPLETE BLOOD COUNT 2120713 RDW 12.5 % 01/19/2019 COMPLETE BLOOD COUNT 9294531 Eos Auto 1.0 % 01/19/2019 COMPLETE BLOOD COUNT 2741627 Baso Auto 0.2 % 01/19/2019 COMPLETE BLOOD COUNT 8373243 Neutrophil Abs 6.68 10e9/L 01/19/2019 COMPLETE BLOOD COUNT 0209389 Lymphocyte Abs 3.61 10e9/L 01/19/2019 COMPLETE BLOOD COUNT 2979577 Monocyte Abs 0.68 10e9/L 01/19/2019 COMPLETE BLOOD COUNT 9522948 Eosinophil Abs 0.11 10e9/L 01/19/2019 COMPLETE BLOOD COUNT 2182603 RDW-SD 43.4 fL 01/19/2019 COMPLETE BLOOD COUNT 8058866 Basophil Abs 0.02 10e9/L 01/19/2019 COMPLETE BLOOD COUNT 4726415 WBC 7.4 10e9/L 12/18/2018 COMPLETE BLOOD COUNT 6999840 RBC 4.32 10e12/L 9 COMPLETE BLOOD COUNT 2932599 HEMOGLOBIN 14.2 g/dL 12/18/2018 COMPLETE BLOOD COUNT 6792883 HEMATOCRIT 42.0 % 12/18/2018 COMPLETE BLOOD COUNT 1216615 MCV 97.2 fL 12/18/2018 COMPLETE BLOOD COUNT 8008391 MCH 32.9 pg 12/18/2018 COMPLETE BLOOD COUNT 9190028 MCHC 33.8 g/dL 12/18/2018 COMPLETE BLOOD COUNT 6786896 PLATELET COUNT 273 10e9/L 12/18/2018 COMPLETE BLOOD COUNT 7280344 Mean Plt Volume 9.4 fL 12/18/2018 COMPLETE BLOOD COUNT 4277606 Neut Auto 57.7 % 12/18/2018 COMPLETE BLOOD COUNT 3444026 Lymph Auto 34.8 % 12/18/2018 COMPLETE BLOOD COUNT 0636465 [place] Auto 6.4 % 12/18/2018 COMPLETE BLOOD COUNT 0799536 RDW 12.6 % 12/18/2018 COMPLETE BLOOD COUNT 4277487 Eos Auto 0.8 % 12/18/2018 COMPLETE BLOOD COUNT 7659668 Baso Auto 0.3 % 12/18/2018 COMPLETE BLOOD COUNT 2211013 Neutrophil Abs 4.27 10e9/L 12/18/2018 COMPLETE BLOOD COUNT 0158411 Lymphocyte Abs 2.58 10e9/L 12/18/2018 COMPLETE BLOOD COUNT 7861173 Monocyte Abs 0.47 10e9/L 12/18/2018 COMPLETE BLOOD COUNT 6340302 Eosinophil Abs 0.06 10e9/L 12/18/2018 COMPLETE BLOOD COUNT 0893433 RDW-SD 43.8 fL 12/18/2018 COMPLETE BLOOD COUNT 8241713 Basophil Abs 0.02 10e9/L 12/18/2018 GFR CALC 9593112 GFR Non Afr Amr >60 mL/min 12/18/2018 GFR CALC 6065006 GFR Afr Amr >60 mL/min 12/18/2018 COMPREHENSIVE METABOLIC 39991 AST 33 U/L 12/18/2018 COMPREHENSIVE METABOLIC 20064 ALT 60 U/L 12/18/2018 COMPREHENSIVE METABOLIC 92027 BUN 9 mg/dL 12/18/2018 COMPREHENSIVE METABOLIC 51121 ALBUMIN 4.3 g/dL 12/18/2018 COMPREHENSIVE METABOLIC 24393 CHLORIDE 104 mmol/L 12/18/2018 COMPREHENSIVE METABOLIC 52174 Bili Total 0.3 mg/dL 12/18/2018 COMPREHENSIVE METABOLIC 38581 ALK PHOS 63 U/L 12/18/2018 COMPREHENSIVE METABOLIC 01490 SODIUM 139 mmol/L 12/18/2018 COMPREHENSIVE METABOLIC 99212 CREATININE 0.55 mg/dL 12/18/2018 COMPREHENSIVE METABOLIC 78589 CALCIUM 9.0 mg/dL 12/18/2018 COMPREHENSIVE METABOLIC 36062 POTASSIUM 3.9 mmol/L 12/18/2018 COMPREHENSIVE METABOLIC 82104 Total Protein 6.4 g/dL 12/18/2018 COMPREHENSIVE METABOLIC 29904 Glucose 83 mg/dL 12/18/2018 COMPREHENSIVE METABOLIC 31791 Bicarbonate 27 mmol/L 12/18/2018 COMPREHENSIVE METABOLIC 02767 AGAP 8 mmol/L 12/18/2018 ERYTHROCYTE SEDIMENTATION RATE 26037 Sed Rate 17 mm/hr 12/04/2018 MEAN GLUC 4365182 Calc M zach Gluc 108 mg/dL 12/03/2018 VITAMIN B 12 07280 VITAM IN B12 329 pg/mL 12/03/2018 COMPREHENSIVE METABOLIC 71975 AST 18 U/L 12/03/2018 COMPREHENSIVE METABOLIC 06067 ALT 21 U/L 12/03/2018 COMPREHENSIVE METABOLIC 36241 BUN 11 mg/dL 12/03/2018 COMPREHENSIVE METABOLIC 09849 ALBUMIN 4.5 g/dL 12/03/2018 COMPREHENSIVE METABOLIC 11995 CHLORIDE 106 mmol/L 12/03/2018 COMPREHENSIVE METABOLIC 56390 Bili Total 0.4 mg/dL 12/03/2018 COMPREHENSIVE METABOLIC 61154 ALK PHOS 49 U/L 12/03/2018 COMPREHENSIVE METABOLIC 46382 SODIUM 138 mmol/L 12/03/2018 COMPREHENSIVE METABOLIC 27353 CREATININE 0.61 mg/dL 12/03/2018 COMPREHENSIVE METABOLIC 88828 CALCIUM 9.2 mg/dL 12/03/2018 COMPREHENSIVE METABOLIC 49339 POTASSIUM 3.7 mmol/L 12/03/2018 COMPREHENSIVE METABOLIC 59890 Total Protein 6.8 g/dL 12/03/2018 COMPREHENSIVE METABOLIC 49099 Glucose 94 mg/dL 12/03/2018 COMPREHENSIVE METABOLIC 00711 Bicarbonate 25 mmol/L 12/03/2018 COMPREHENSIVE METABOLIC 30895 AGAP 7 mmol/L 12/03/2018 FREE T4 23353 T4 Free 0.96 ng/dL 12/03/2018 ASSAY TRIIODOTHYRONINE (T3) 08243 T3 Total 1.02 ng/mL 12/03/2018 GFR CALC 4668187 GFR Non Afr Amr >60 mL/min 12/03/2018 GFR CALC 0487880 GFR Afr Amr >60 mL/min 12/03/2018 GLYCOSYLATED HEMOGLOBIN TEST 45492 Hgb A1c 77583-7 5.4 % 12/03/2018 VITAMIN D TOTAL (25 HYDROXY) 05416 Vitamin D 25 OH 11.1 ng/mL 12/03/2018 IRON 12183 Iron 106 ug/dL 12/03/2018 THYROID STIMULATING HORMONE 57614 TSH 0.978 uIU/mL 9 COMPLETE BLOOD COUNT 3118959 WBC 9.4 10e9/L 12/03/2018 COMPLETE BLOOD COUNT 3109877 RBC 4.41 10e12/L 9 COMPLETE BLOOD COUNT 1236514 HEMOGLOBIN 14.5 g/dL 12/03/2018 COMPLETE BLOOD COUNT 6243515 HEMATOCRIT 43.0 % 12/03/2018 COMPLETE BLOOD COUNT 7974466 MCV 97.5 fL 12/03/2018 COMPLETE BLOOD COUNT 0905196 MCH 32.9 pg 12/03/2018 COMPLETE BLOOD COUNT 2532206 MCHC 33.7 g/dL 12/03/2018 COMPLETE BLOOD COUNT 9205261 PLATELET COUNT 336 10e9/L 12/03/2018 COMPLETE BLOOD COUNT 1681573 Mean Plt Volume 9.1 fL 12/03/2018 COMPLETE BLOOD COUNT 6348071 Neut Auto 56.4 % 12/03/2018 COMPLETE BLOOD COUNT 3025522 Lymph Auto 35.6 % 12/03/2018 COMPLETE BLOOD COUNT 3283246 [place] Auto 6.8 % 12/03/2018 COMPLETE BLOOD COUNT 5986102 RDW 12.6 % 12/03/2018 COMPLETE BLOOD COUNT 2960531 Eos Auto 1.0 % 12/03/2018 COMPLETE BLOOD COUNT 2237460 Baso Auto 0.2 % 12/03/2018 COMPLETE BLOOD COUNT 4505565 Neutrophil Abs 5.30 10e9/L 12/03/2018 COMPLETE BLOOD COUNT 6573049 Lymphocyte Abs 3.35 10e9/L 12/03/2018 COMPLETE BLOOD COUNT 5137988 Monocyte Abs 0.64 10e9/L 12/03/2018 COMPLETE BLOOD COUNT 8829143 Eosinophil Abs 0.09 10e9/L 12/03/2018 COMPLETE BLOOD COUNT 0814519 RDW-SD 44.3 fL 12/03/2018 COMPLETE BLOOD COUNT 6308689 Basophil Abs 0.02 10e9/L 12/03/2018 FERRITIN 31886 FERRITIN 87.8 ng/mL 12/03/2018 PT 1663567 PT 23.1 Seconds 11/30/2018 PT 7438373 INR 2.0 11/30/2018 ANTI STREPTOLYSIN O TITER(ASO) 27393 ASO Titr 117 IU/mL 9 COMPLETE BLOOD COUNT 0797298 WBC 10.7 10e9/L 11/11/2018 COMPLETE BLOOD COUNT 1540977 RBC 4.42 10e12/L 9 COMPLETE BLOOD COUNT 5230500 HEMOGLOBIN 14.5 g/dL 11/11/2018 COMPLETE BLOOD COUNT 0487542 HEMATOCRIT 43.1 % 11/11/2018 COMPLETE BLOOD COUNT 3419133 MCV 97.5 fL 11/11/2018 COMPLETE BLOOD COUNT 4091903 MCH 32.8 pg 11/11/2018 COMPLETE BLOOD COUNT 1625602 MCHC 33.6 g/dL 11/11/2018 COMPLETE BLOOD COUNT 0494241 PLATELET COUNT 324 10e9/L 11/11/2018 COMPLETE BLOOD COUNT 8762597 Mean Plt Volume 9.2 fL 11/11/2018 COMPLETE BLOOD COUNT 9434972 Neut Auto 62.3 % 11/11/2018 COMPLETE BLOOD COUNT 9102609 Lymph Auto 30.8 % 11/11/2018 COMPLETE BLOOD COUNT 1153526 [place] Auto 6.1 % 11/11/2018 COMPLETE BLOOD COUNT 8803344 RDW 12.7 % 11/11/2018 COMPLETE BLOOD COUNT 2360622 Eos Auto 0.7 % 11/11/2018 COMPLETE BLOOD COUNT 6424120 Baso Auto 0.1 % 11/11/2018 COMPLETE BLOOD COUNT 3774767 Neutrophil Abs 6.67 10e9/L 11/11/2018 COMPLETE BLOOD COUNT 4710731 Lymphocyte Abs 3.30 10e9/L 11/11/2018 COMPLETE BLOOD COUNT 2126874 Monocyte Abs 0.65 10e9/L 11/11/2018 COMPLETE BLOOD COUNT 6475122 Eosinophil Abs 0.07 10e9/L 11/11/2018 COMPLETE BLOOD COUNT 0028578 RDW-SD 44.3 fL 11/11/2018 COMPLETE BLOOD COUNT 0775193 Basophil Abs 0.01 10e9/L 11/11/2018 PT 5491480 PT 23.4 Seconds 10/27/2018 PT 1072280 INR 2.0 10/27/2018 COMPLETE BLOOD COUNT 6775724 WBC 8.1 10e9/L 09/25/2018 COMPLETE BLOOD COUNT 3308895 RBC 4.37 10e12/L 9 COMPLETE BLOOD COUNT 2768256 HEMOGLOBIN 14.5 g/dL 09/25/2018 COMPLETE BLOOD COUNT 4217735 HEMATOCRIT 42.1 % 09/25/2018 COMPLETE BLOOD COUNT 1496340 MCV 96.3 fL 09/25/2018 COMPLETE BLOOD COUNT 9052303 MCH 33.2 pg 09/25/2018 COMPLETE BLOOD COUNT 1930430 MCHC 34.4 g/dL 09/25/2018 COMPLETE BLOOD COUNT 4809519 PLATELET COUNT 313 10e9/L 09/25/2018 COMPLETE BLOOD COUNT 4790636 Mean Plt Volume 9.2 fL 09/25/2018 COMPLETE BLOOD COUNT 2728252 Neut Auto 57.4 % 09/25/2018 COMPLETE BLOOD COUNT 1030062 Lymph Auto 35.0 % 09/25/2018 COMPLETE BLOOD COUNT 3577170 [place] Auto 6.3 % 09/25/2018 COMPLETE BLOOD COUNT 2920435 RDW 12.6 % 09/25/2018 COMPLETE BLOOD COUNT 6994690 Eos Auto 1.1 % 09/25/2018 COMPLETE BLOOD COUNT 4126703 Baso Auto 0.2 % 09/25/2018 COMPLETE BLOOD COUNT 5253538 Neutrophil Abs 4.65 10e9/L 09/25/2018 COMPLETE BLOOD COUNT 6839385 Lymphocyte Abs 2.84 10e9/L 09/25/2018 COMPLETE BLOOD COUNT 6535989 Monocyte Abs 0.51 10e9/L 09/25/2018 COMPLETE BLOOD COUNT 7072805 Eosinophil Abs 0.09 10e9/L 09/25/2018 COMPLETE BLOOD COUNT 1603731 RDW-SD 43.0 fL 09/25/2018 COMPLETE BLOOD COUNT 7032916 Basophil Abs 0.02 10e9/L 09/25/2018 COMPREHENSIVE METABOLIC 24163 AST 15 U/L 09/25/2018 COMPREHENSIVE METABOLIC 08622 ALT 20 U/L 09/25/2018 COMPREHENSIVE METABOLIC 50120 BUN 9 mg/dL 09/25/2018 COMPREHENSIVE METABOLIC 68787 ALBUMIN 4.3 g/dL 09/25/2018 COMPREHENSIVE METABOLIC 59964 CHLORIDE 107 mmol/L 09/25/2018 COMPREHENSIVE METABOLIC 37879 Bili Total 0.4 mg/dL 09/25/2018 COMPREHENSIVE METABOLIC 41023 ALK PHOS 51 U/L 09/25/2018 COMPREHENSIVE METABOLIC 93358 SODIUM 139 mmol/L 09/25/2018 COMPREHENSIVE METABOLIC 00596 CREATININE 0.61 mg/dL 09/25/2018 COMPREHENSIVE METABOLIC 77724 CALCIUM 9.1 mg/dL 09/25/2018 COMPREHENSIVE METABOLIC 19551 POTASSIUM 3.7 mmol/L 09/25/2018 COMPREHENSIVE METABOLIC 20819 Total Protein 6.3 g/dL 09/25/2018 COMPREHENSIVE METABOLIC 68144 Glucose 92 mg/dL 09/25/2018 COMPREHENSIVE METABOLIC 67895 Bicarbonate 24 mmol/L 09/25/2018 COMPREHENSIVE METABOLIC 13725 AGAP 8 mmol/L 09/25/2018 PT 7761812 PT 25.0 Seconds 09/25/2018 PT [id number] INR 2.2 09/25/2018 GFR CALC 9926104 GFR Non Afr Amr >60 mL/min 09/25/2018 GFR CALC [id number] GFR Afr Amr >60 mL/min 09/25/2018 PT 5841242 PT 25.7 Seconds 05/12/2018 PT 9741579 INR 2.3 05/12/2018 PT [id number] PT TNP:Improper Specimen 04/30/2018 PT [id number] INR TNP:Improper Specimen 04/30/2018 PT 9402047 PT 26.3 Seconds 02/05/2018 PT [id number] INR 2.4 02/05/2018 ANTI STREPTOLYSIN O TITER(ASO) 33768 ASO Titr 118 IU/mL 8 VITAMIN B 12 33301 VITAM IN B12 302 pg/mL 12/02/2017 VITAMIN D TOTAL (25 HYDROXY) 71559 Vitamin D 25 OH 27.0 ng/mL 12/02/2017 PT 3907559 PT 17.3 Seconds 12/01/2017 PT [id number] INR 1.4 12/01/2017 ANTI STREPTOLYSIN O TITER(ASO) 06211 ASO Titr 127 IU/mL 8 ANTI STREPTOLYSIN O TITER(ASO) 53233 ASO Titr 130 IU/mL 8 ANTINUCLEAR ANTIBODY SCREEN 63959 MAGALIE Ab Scr <1:80 10/02/2017 RA FACTOR 65473 RA FACTOR <20 IU/mL 10/02/2017 RA FACTOR 93886 RA Facto r Intp Negative 10/02/2017 VITAMIN D TOTAL (25 HYDROXY) 82035 Vitamin D 25 OH 18 ng/mL 8 IRON 36622 Iron 70 ug/dL 10/01/2017 VITAMIN B 12 94876 VITAM IN B12 377 pg/mL 10/01/2017 FREE T4 52611 T4 Free 1.31 ng/dL 10/01/2017 URIC ACID 37906 URIC ACID 3.9 mg/dL 10/01/2017 FERRITIN 79452 FERRITIN 68.0 ng/mL 10/01/2017 THYROID STIMULATING HORMONE 08641 TSH 1.401 uIU/mL 8 GLYCOSYLATED HEMOGLOBIN TEST 58896 Hgb A1c 31675-1 5.4 % 10/01/2017 FOLIC ACID 83108 Folate >24.0 ng/mL 10/01/2017 ASSAY TRIIODOTHYRONINE (T3) 52151 T3 Total 1.0 ng/mL 10/01/2017 ERYTHROCYTE SEDIMENTATION RATE 75123 Sed Rate 5 mm/hr 10/01/2017 MEAN GLUC 7777988 Calc M zach Gluc 108 mg/dL 10/01/2017 PT 9483718 PT 18.6 Seconds 08/07/2017 PT 7227273 INR 1.5 08/07/2017 COMPREHENSIVE METABOLIC 91627 AST 21 U/L 08/07/2017 COMPREHENSIVE METABOLIC 91162 ALT 37 U/L 08/07/2017 COMPREHENSIVE METABOLIC 08336 BUN 14 mg/dL 08/07/2017 COMPREHENSIVE METABOLIC 82206 ALBUMIN 4.5 g/dL 08/07/2017 COMPREHENSIVE METABOLIC 00177 CHLORIDE 104 mmol/L 08/07/2017 COMPREHENSIVE METABOLIC 28654 Bili Total 0.3 mg/dL 08/07/2017 COMPREHENSIVE METABOLIC 97466 ALK PHOS 55 U/L 08/07/2017 COMPREHENSIVE METABOLIC 81255 SODIUM 139 mmol/L 08/07/2017 COMPREHENSIVE METABOLIC 74883 CREATININE 0.77 mg/dL 08/07/2017 COMPREHENSIVE METABOLIC 66614 CALCIUM 9.2 mg/dL 08/07/2017 COMPREHENSIVE METABOLIC 04597 POTASSIUM 3.7 mmol/L 08/07/2017 COMPREHENSIVE METABOLIC 60856 Total Protein 6.5 g/dL 08/07/2017 COMPREHENSIVE METABOLIC 68459 Glucose 101 mg/dL 08/07/2017 COMPREHENSIVE METABOLIC 63243 Bicarbonate 25 mmol/L 08/07/2017 COMPREHENSIVE METABOLIC 53536 AGAP 10 mmol/L 08/07/2017 COMPLETE BLOOD COUNT 2929406 WBC 9.4 10e9/L 08/07/2017 COMPLETE BLOOD COUNT 6203328 RBC 4.38 10e12/L 8 COMPLETE BLOOD COUNT 0901021 HEMOGLOBIN 14.5 g/dL 08/07/2017 COMPLETE BLOOD COUNT 1073816 HEMATOCRIT 42.7 % 08/07/2017 COMPLETE BLOOD COUNT 3743393 MCV 97.5 fL 08/07/2017 COMPLETE BLOOD COUNT 4606860 MCH 33.1 pg 08/07/2017 COMPLETE BLOOD COUNT 7235383 MCHC 34.0 g/dL 08/07/2017 COMPLETE BLOOD COUNT 5954296 PLATELET COUNT 313 10e9/L 08/07/2017 COMPLETE BLOOD COUNT 1358585 Mean Plt Volume 8.6 fL 08/07/2017 COMPLETE BLOOD COUNT 5791349 Neut Auto 51.6 % 08/07/2017 COMPLETE BLOOD COUNT 1541334 Lymph Auto 40.0 % 08/07/2017 COMPLETE BLOOD COUNT 6734873 [place] Auto 6.8 % 08/07/2017 COMPLETE BLOOD COUNT 3572452 RDW 12.9 % 08/07/2017 COMPLETE BLOOD COUNT 5684109 Eos Auto 1.4 % 08/07/2017 COMPLETE BLOOD COUNT 1605839 Baso Auto 0.2 % 08/07/2017 COMPLETE BLOOD COUNT 8689609 Neutrophil Abs 4.85 10e9/L 08/07/2017 COMPLETE BLOOD COUNT 6680236 Lymphocyte Abs 3.76 10e9/L 08/07/2017 COMPLETE BLOOD COUNT 2130758 Monocyte Abs 0.64 10e9/L 08/07/2017 COMPLETE BLOOD COUNT 9589879 Eosinophil Abs 0.13 10e9/L 08/07/2017 COMPLETE BLOOD COUNT 2111700 RDW-SD 45.1 fL 08/07/2017 COMPLETE BLOOD COUNT 2970342 Basophil Abs 0.02 10e9/L 08/07/2017 GFR CALC 4504204 GFR Non Afr Amr >60 mL/min 08/07/2017 GFR CALC 1618293 GFR Afr Amr >60 mL/min 08/07/2017 COMPLETE BLOOD COUNT 0822762 WBC 9.2 10e9/L 07/15/2017 COMPLETE BLOOD COUNT 7976201 RBC 4.70 10e12/L 8 COMPLETE BLOOD COUNT 9506561 HEMOGLOBIN 15.4 g/dL 07/15/2017 COMPLETE BLOOD COUNT 8062544 HEMATOCRIT 46.2 % 07/15/2017 COMPLETE BLOOD COUNT 4700803 MCV 98.3 fL 07/15/2017 COMPLETE BLOOD COUNT 8500465 MCH 32.8 pg 07/15/2017 COMPLETE BLOOD COUNT 8065215 MCHC 33.3 g/dL 07/15/2017 COMPLETE BLOOD COUNT 2404133 PLATELET COUNT 348 10e9/L 07/15/2017 COMPLETE BLOOD COUNT 3777296 Mean Plt Volume 8.9 fL 07/15/2017 COMPLETE BLOOD COUNT 7088871 Neut Auto 60.6 % 07/15/2017 COMPLETE BLOOD COUNT 0329816 Lymph Auto 30.9 % 07/15/2017 COMPLETE BLOOD COUNT 1112181 [place] Auto 7.1 % 07/15/2017 COMPLETE BLOOD COUNT 6934357 RDW 13.1 % 07/15/2017 COMPLETE BLOOD COUNT 2784226 Eos Auto 1.2 % 07/15/2017 COMPLETE BLOOD COUNT 6785108 Baso Auto 0.2 % 07/15/2017 COMPLETE BLOOD COUNT 1078695 Neutrophil Abs 5.58 10e9/L 07/15/2017 COMPLETE BLOOD COUNT 5801599 Lymphocyte Abs 2.84 10e9/L 07/15/2017 COMPLETE BLOOD COUNT 1283139 Monocyte Abs 0.65 10e9/L 07/15/2017 COMPLETE BLOOD COUNT 1824763 Eosinophil Abs 0.11 10e9/L 07/15/2017 COMPLETE BLOOD COUNT 6339917 RDW-SD 46.1 fL 07/15/2017 COMPLETE BLOOD COUNT 4479780 Basophil Abs 0.02 10e9/L 07/15/2017 GFR CALC 6775089 GFR Non Afr Amr >60 mL/min 07/15/2017 GFR CALC 9312319 GFR Afr Amr >60 mL/min 07/15/2017 COMPREHENSIVE METABOLIC 69140 AST 16 U/L 07/15/2017 COMPREHENSIVE METABOLIC 55411 ALT 20 U/L 07/15/2017 COMPREHENSIVE METABOLIC 51606 BUN 13 mg/dL 07/15/2017 COMPREHENSIVE METABOLIC 16855 ALBUMIN 4.6 g/dL 07/15/2017 COMPREHENSIVE METABOLIC 90494 CHLORIDE 106 mmol/L 07/15/2017 COMPREHENSIVE METABOLIC 34445 Bili Total 0.3 mg/dL 07/15/2017 COMPREHENSIVE METABOLIC 10376 ALK PHOS 50 U/L 07/15/2017 COMPREHENSIVE METABOLIC 41915 SODIUM 137 mmol/L 07/15/2017 COMPREHENSIVE METABOLIC 59835 CREATININE 0.62 mg/dL 07/15/2017 COMPREHENSIVE METABOLIC 71978 CALCIUM 9.2 mg/dL 07/15/2017 COMPREHENSIVE METABOLIC 27639 POTASSIUM 3.8 mmol/L 07/15/2017 COMPREHENSIVE METABOLIC 79022 Total Protein 6.7 g/dL 07/15/2017 COMPREHENSIVE METABOLIC 11145 Glucose 83 mg/dL 07/15/2017 COMPREHENSIVE METABOLIC 11570 Bicarbonate 30 mmol/L 07/15/2017 COMPREHENSIVE METABOLIC 22684 AGAP 1 mmol/L 07/15/2017 THYROID STIMULATING HORMONE 56715 TSH 2.111 uIU/mL 7 COMPREHENSIVE METABOLIC 66749 AST 33 U/L 08/27/2016 COMPREHENSIVE METABOLIC 66989 ALT 55 U/L 08/27/2016 COMPREHENSIVE METABOLIC 83020 BUN 11 mg/dL 08/27/2016 COMPREHENSIVE METABOLIC 09587 ALBUMIN 4.6 g/dL 08/27/2016 COMPREHENSIVE METABOLIC 13047 CHLORIDE 103 mmol/L 08/27/2016 COMPREHENSIVE METABOLIC 29433 Bili Total 0.3 mg/dL 08/27/2016 COMPREHENSIVE METABOLIC 16703 ALK PHOS 60 U/L 08/27/2016 COMPREHENSIVE METABOLIC 25862 SODIUM 140 mmol/L 08/27/2016 COMPREHENSIVE METABOLIC 67238 CREATININE 0.69 mg/dL 08/27/2016 COMPREHENSIVE METABOLIC 95300 CALCIUM 9.3 mg/dL 08/27/2016 COMPREHENSIVE METABOLIC 59916 POTASSIUM 3.7 mmol/L 08/27/2016 COMPREHENSIVE METABOLIC 80502 Total Protein 6.8 g/dL 08/27/2016 COMPREHENSIVE METABOLIC 55804 Glucose 79 mg/dL 08/27/2016 COMPREHENSIVE METABOLIC 98857 Bicarbonate 25 mmol/L 08/27/2016 COMPREHENSIVE METABOLIC 06906 AGAP 12 mmol/L 08/27/2016 COMPLETE BLOOD COUNT 8793848 WBC 9.4 10e9/L 08/27/2016 COMPLETE BLOOD COUNT 8459833 RBC 4.35 10e12/L 7 COMPLETE BLOOD COUNT 7448973 HEMOGLOBIN 14.2 g/dL 08/27/2016 COMPLETE BLOOD COUNT 2912552 HEMATOCRIT 41.5 % 08/27/2016 COMPLETE BLOOD COUNT 8117839 MCV 95.4 fL 08/27/2016 COMPLETE BLOOD COUNT 7463700 MCH 32.6 pg 08/27/2016 COMPLETE BLOOD COUNT 3990014 MCHC 34.2 g/dL 08/27/2016 COMPLETE BLOOD COUNT 0121793 PLATELET COUNT 289 10e9/L 08/27/2016 COMPLETE BLOOD COUNT 3696567 Mean Plt Volume 9.8 fL 08/27/2016 COMPLETE BLOOD COUNT 9399481 Neut Auto 47.7 % 08/27/2016 COMPLETE BLOOD COUNT 1482120 Lymph Auto 44.2 % 08/27/2016 COMPLETE BLOOD COUNT 3594225 [place] Auto 6.6 % 08/27/2016 COMPLETE BLOOD COUNT 6458921 RDW 12.9 % 08/27/2016 COMPLETE BLOOD COUNT 6313025 Eos Auto 1.4 % 08/27/2016 COMPLETE BLOOD COUNT 8895731 Baso Auto 0.1 % 08/27/2016 COMPLETE BLOOD COUNT 5137306 Neutrophil Abs 4.48 10e9/L 08/27/2016 COMPLETE BLOOD COUNT 9828547 Lymphocyte Abs 4.15 10e9/L 08/27/2016 COMPLETE BLOOD COUNT 5953264 Monocyte Abs 0.62 10e9/L 08/27/2016 COMPLETE BLOOD COUNT 5474597 Eosinophil Abs 0.13 10e9/L 08/27/2016 COMPLETE BLOOD COUNT 4346979 RDW-SD 43.9 fL 08/27/2016 COMPLETE BLOOD COUNT 2436338 Basophil Abs 0.01 10e9/L 08/27/2016 PT 8228263 PT 15.0 Seconds 08/27/2016 PT 7124875 INR 1.2 08/27/2016 GFR CALC 9092068 GFR Afr Amr >60 mL/min 08/27/2016 GFR CALC 0962285 GFR Non Afr Amr >60 mL/min 08/27/2016 GFR CALC 3325003 GFR Non Afr Amr >60 mL/min 05/24/2016 GFR CALC 5187644 GFR Afr Amr >60 mL/min 05/24/2016 COMPREHENSIVE METABOLIC 37097 AST 19 U/L 05/24/2016 COMPREHENSIVE METABOLIC 94042 ALT 23 U/L 05/24/2016 COMPREHENSIVE METABOLIC 80630 BUN 12 mg/dL 05/24/2016 COMPREHENSIVE METABOLIC 80991 ALBUMIN 4.1 g/dL 05/24/2016 COMPREHENSIVE METABOLIC 60776 CHLORIDE 105 mmol/L 05/24/2016 COMPREHENSIVE METABOLIC 93942 Bili Total 0.4 mg/dL 05/24/2016 COMPREHENSIVE METABOLIC 61995 ALK PHOS 52 U/L 05/24/2016 COMPREHENSIVE METABOLIC 91895 SODIUM 136 mmol/L 05/24/2016 COMPREHENSIVE METABOLIC 03568 CREATININE 0.61 mg/dL 05/24/2016 COMPREHENSIVE METABOLIC 16089 CALCIUM 8.8 mg/dL 05/24/2016 COMPREHENSIVE METABOLIC 22915 POTASSIUM 3.8 mmol/L 05/24/2016 COMPREHENSIVE METABOLIC 86127 Total Protein 6.2 g/dL 05/24/2016 COMPREHENSIVE METABOLIC 94540 Glucose 95 mg/dL 05/24/2016 COMPREHENSIVE METABOLIC 31045 Bicarbonate 19 mmol/L 05/24/2016 COMPREHENSIVE METABOLIC 23152 AGAP 12 mmol/L 05/24/2016 PT 4877255 PT 25.7 Seconds 05/24/2016 PT 1622466 INR 2.4 05/24/2016 PT 1061340 PT 22.2 Seconds 04/11/2016 PT 2978598 INR 2.0 04/11/2016 PT 8939096 PT 16.5 Seconds 03/13/2016 PT 8285119 INR 1.4 03/13/2016 THYROID STIMULATING HORMONE 63507 TSH 1.151 uIU/mL 6 COMPLETE BLOOD COUNT 8410712 WBC 10.0 10e9/L 03/12/2016 COMPLETE BLOOD COUNT 7547016 RBC 4.08 10e12/L 6 COMPLETE BLOOD COUNT 0229593 HEMOGLOBIN 13.5 g/dL 03/12/2016 COMPLETE BLOOD COUNT 2587196 HEMATOCRIT 38.8 % 03/12/2016 COMPLETE BLOOD COUNT 3325410 MCV 95.1 fL 03/12/2016 COMPLETE BLOOD COUNT 8107118 MCH 33.1 pg 03/12/2016 COMPLETE BLOOD COUNT 3005292 MCHC 34.8 g/dL 03/12/2016 COMPLETE BLOOD COUNT 2139061 PLATELET COUNT 282 10e9/L 03/12/2016 COMPLETE BLOOD COUNT 3401446 Mean Plt Volume 9.6 fL 03/12/2016 COMPLETE BLOOD COUNT 3167951 Neut Auto 53.5 % 03/12/2016 COMPLETE BLOOD COUNT 2572444 Lymph Auto 39.0 % 03/12/2016 COMPLETE BLOOD COUNT 4341439 [place] Auto 5.9 % 03/12/2016 COMPLETE BLOOD COUNT 2274797 RDW 12.6 % 03/12/2016 COMPLETE BLOOD COUNT 0658168 Eos Auto 1.4 % 03/12/2016 COMPLETE BLOOD COUNT 9286993 Baso Auto 0.2 % 03/12/2016 COMPLETE BLOOD COUNT 5293814 Neutrophil Abs 5.35 10e9/L 03/12/2016 COMPLETE BLOOD COUNT 9863058 Lymphocyte Abs 3.90 10e9/L 03/12/2016 COMPLETE BLOOD COUNT 6442418 Monocyte Abs 0.59 10e9/L 03/12/2016 COMPLETE BLOOD COUNT 6254725 Eosinophil Abs 0.14 10e9/L 03/12/2016 COMPLETE BLOOD COUNT 6218759 RDW-SD 42.7 fL 03/12/2016 COMPLETE BLOOD COUNT 2785696 Basophil Abs 0.02 10e9/L 03/12/2016 COMPREHENSIVE METABOLIC 66653 AST 13 U/L 03/12/2016 COMPREHENSIVE METABOLIC 95830 ALT 11 U/L 03/12/2016 COMPREHENSIVE METABOLIC 56114 BUN 11 mg/dL 03/12/2016 COMPREHENSIVE METABOLIC 08971 ALBUMIN 4.1 g/dL 03/12/2016 COMPREHENSIVE METABOLIC 00371 CHLORIDE 107 mmol/L 03/12/2016 COMPREHENSIVE METABOLIC 50471 Bili Total 0.3 mg/dL 03/12/2016 COMPREHENSIVE METABOLIC 78524 ALK PHOS 41 U/L 03/12/2016 COMPREHENSIVE METABOLIC 17055 SODIUM 137 mmol/L 03/12/2016 COMPREHENSIVE METABOLIC 91285 CREATININE 0.62 mg/dL 03/12/2016 COMPREHENSIVE METABOLIC 00862 CALCIUM 9.0 mg/dL 03/12/2016 COMPREHENSIVE METABOLIC 35519 POTASSIUM 3.8 mmol/L 03/12/2016 COMPREHENSIVE METABOLIC 57035 Total Protein 6.1 g/dL 03/12/2016 COMPREHENSIVE METABOLIC 43161 Glucose 95 mg/dL 03/12/2016 COMPREHENSIVE METABOLIC 91781 Bicarbonate 23 mmol/L 03/12/2016 COMPREHENSIVE METABOLIC 36884 AGAP 7 mmol/L 03/12/2016 GFR CALC 2181201 GFR Non Afr Amr >60 mL/min 03/12/2016 GFR CALC 2051626 GFR Afr Amr >60 mL/min 03/12/2016 PT 1080461 PT 14.4 Seconds 02/12/2016 PT 7098395 INR 1.2 02/12/2016 PT 3098221 PT 26.1 Seconds 02/01/2016 PT 2246654 INR 2.4 02/01/2016 EB VIRUS VCA G/M + EB[place] + [place] [address]|8 6665 x 2|18437 EBV VCA Ab IgG 3.70 11/13/2015 [place] V[place] VCA G/M + EBNA + [place] [address]|8 6665 x 2|87175 EBV VCA Ab IgM 0.47 11/13/2015 EB VIR[place] VCA G/M + EB[place] + [place] [address]|8 6665 x 2|25945 EBV Nuclear Ab 2.24 11/13/2015 EB VIRUS VCA G/M + [place] + [place] 73[address]|8 6665 x 2|32145 EBV Early Ab 1.37 11/13/2015 PT 0637802 PT 18.9 Seconds 11/10/2015 PT 8140634 INR 1.6 11/10/2015 PT 2438079 PT 16.8 Seconds 09/29/2015 PT 4156942 INR 1.4 09/29/2015 COMPLETE BLOOD COUNT 5056345 WBC 9.6 10e9/L 09/29/2015 COMPLETE BLOOD COUNT 2519139 RBC 4.51 10e12/L 6 COMPLETE BLOOD COUNT 5800469 HEMOGLOBIN 14.8 g/dL 09/29/2015 COMPLETE BLOOD COUNT 0981575 HEMATOCRIT 43.3 % 09/29/2015 COMPLETE BLOOD COUNT 7667869 MCV 96.0 fL 09/29/2015 COMPLETE BLOOD COUNT 8730749 MCH 32.8 pg 09/29/2015 COMPLETE BLOOD COUNT 1234198 MCHC 34.2 g/dL 09/29/2015 COMPLETE BLOOD COUNT 6671718 PLATELET COUNT 310 10e9/L 09/29/2015 COMPLETE BLOOD COUNT 6028489 Mean Plt Volume 9.7 fL 09/29/2015 COMPLETE BLOOD COUNT 9095571 Neutrophil 60.3 % 09/29/2015 COMPLETE BLOOD COUNT 0775448 Lymph Auto % 32.4 % 09/29/2015 COMPLETE BLOOD COUNT 5495634 Monocyte Auto % 6.5 % 09/29/2015 COMPLETE BLOOD COUNT 8141577 RDW 12.8 % 09/29/2015 COMPLETE BLOOD COUNT 9900625 Eosinophil 0.7 % 09/29/2015 COMPLETE BLOOD COUNT 5945085 Basophil 0.1 % 09/29/2015 COMPLETE BLOOD COUNT 2897308 Neutrophil Abs 5.79 10e9/L 09/29/2015 COMPLETE BLOOD COUNT 8546736 Lymphoctye Abs 3.11 10e9/L 09/29/2015 COMPLETE BLOOD COUNT 4760352 Monocyte Abs 0.62 10e9/L 09/29/2015 COMPLETE BLOOD COUNT 5451195 Eosinophil Abs 0.07 10e9/L 09/29/2015 COMPLETE BLOOD COUNT 4044821 RDW-SD 43.6 fL 09/29/2015 COMPLETE BLOOD COUNT 8646039 Basophil Abs 0.01 10e9/L 09/29/2015 IRON 50662 Iron 86 ug/dL 09/29/2015 COMPLETE BLOOD COUNT 5815991 WBC 9.6 10e9/L 09/29/2015 COMPLETE BLOOD COUNT 7802698 RBC 4.51 10e12/L 6 COMPLETE BLOOD COUNT 1145229 HEMOGLOBIN 14.8 g/dL 09/29/2015 COMPLETE BLOOD COUNT 8922649 HEMATOCRIT 43.3 % 09/29/2015 COMPLETE BLOOD COUNT 8762568 MCV 96.0 fL 09/29/2015 COMPLETE BLOOD COUNT 7034306 MCH 32.8 pg 09/29/2015 COMPLETE BLOOD COUNT 7829627 MCHC 34.2 g/dL 09/29/2015 COMPLETE BLOOD COUNT 1428940 PLATELET COUNT 310 10e9/L 09/29/2015 COMPLETE BLOOD COUNT 9879270 Mean Plt Volume 9.7 fL 09/29/2015 COMPLETE BLOOD COUNT 9075555 Neutrophil 60.3 % 09/29/2015 COMPLETE BLOOD COUNT 0970269 Lymph Auto % 32.4 % 09/29/2015 COMPLETE BLOOD COUNT 2831808 Monocyte Auto % 6.5 % 09/29/2015 COMPLETE BLOOD COUNT 7255939 RDW 12.8 % 09/29/2015 COMPLETE BLOOD COUNT 0453133 Eosinophil 0.7 % 09/29/2015 COMPLETE BLOOD COUNT 9890530 Basophil 0.1 % 09/29/2015 COMPLETE BLOOD COUNT 6146929 Neutrophil Abs 5.79 10e9/L 09/29/2015 COMPLETE BLOOD COUNT 5243190 Lymphoctye Abs 3.11 10e9/L 09/29/2015 COMPLETE BLOOD COUNT 0060274 Monocyte Abs 0.62 10e9/L 09/29/2015 COMPLETE BLOOD COUNT 8017730 Eosinophil Abs 0.07 10e9/L 09/29/2015 COMPLETE BLOOD COUNT 2725258 RDW-SD 43.6 fL 09/29/2015 COMPLETE BLOOD COUNT 7780432 Basophil Abs 0.01 10e9/L 09/29/2015 PT 2500419 PT 16.8 Seconds 09/29/2015 PT 4550849 INR 1.4 09/29/2015 IRON 46723 Iron 86 ug/dL 09/29/2015 PT MT IVANNA 49384 PRO T PAULIE 19.4 SEC 07/27/2015 PT MT IVANNA 42723 INR M CMC 1.7 07/27/2015 PT MT IVANNA 57701 PRO T PAULIE 21.4 SEC 06/21/2015 PT MT IVANNA 68418 INR M CMC 1.9 06/21/2015 PT MT IVANNA 63095 PRO T PAULIE 24.5 SEC 05/24/2015 PT MT IVANNA 78299 INR M CMC 2.3 05/24/2015 Review of [...] Procedures Procedure Codes Date ROUTINE VENIPUNCTURE CPT-4: 95901 02/17/2019 PT CPT-4: 2187453 02/17/2019 URINE CULTURE/ COLON Y COUNT CPT-4: 69268 02/08/2019 ROUTINE VENIPUNCTURE CPT-4: 13388 01/19/2019 PROTHROMBIN TIME CPT-4: 65463 01/19/2019 COMPLETE CBC W/AUTO DIFF WBC CPT-4: 76393 01/19/2019 ANTISTREPTOLYSIN O T ITER CPT-4: 88987 01/19/2019 HEPATIC FUNCTION PANEL CPT-4: 19317 01/19/2019 MYCOPLASMA ANTIBODY, IFA CPT-4: 56655Z0 01/19/2019 RESPIRATORY CULTURE & STAIN CPT-4: 59391 01/19/2019 STREP A ASSAY W/OPTIC CPT-4: 70989 01/19/2019 THER/PROPH/DIAG INJ SC/IM CPT-4: 46390 01/04/2019 TRIAMCINOLONE ACET I [place] NOS CPT-4: J3301 01/04/2019 ROUTINE VENIPUNCTURE CPT-4: 91151 12/18/2018 COMPLETE CBC W/AUTO DIFF WBC CPT-4: 26066 12/18/2018 COMPREHEN METABOLIC PANEL CPT-4: 63903 12/18/2018 HYDRATION IV INFUSIO N INIT CPT-4: 75584 12/16/2018 STREP A ASSAY W/OPTIC CPT-4: 40684 12/02/2018 ROUTINE VENIPUNCTURE CPT-4: 21860 11/30/2018 PT CPT-4: 9924807 11/30/2018 CEFTRIAXONE SODIUM I NJECTION CPT-4: J0696 11/30/2018 THER/PROPH/DIAG INJ SC/IM CPT-4: 40405 11/30/2018 URINE CULTURE/ COLON Y COUNT CPT-4: 88222 11/20/2018 URINALYSIS NONAUTO W /O SCOPE CPT-4: 42561 11/20/2018 CEFTRIAXONE SODIUM I NJECTION CPT-4: J0696 11/12/2018 THER/PROPH/DIAG INJ SC/IM CPT-4: 40902 11/12/2018 STREP A ASSAY W/OPTIC CPT-4: 58156 11/11/2018 CEFTRIAXONE SODIUM I NJECTION CPT-4: J0696 11/11/2018 THER/PROPH/DIAG INJ SC/IM CPT-4: 37119 11/11/2018 ROUTINE VENIPUNCTURE CPT-4: 89061 11/11/2018 ANTISTREPTOLYSIN O T ITER CPT-4: 18581 11/11/2018 COMPLETE CBC W/AUTO DIFF WBC CPT-4: 92319 11/11/2018 ROUTINE VENIPUNCTURE CPT-4: 95578 10/27/2018 PT CPT-4: 8442938 10/27/2018 THER/PROPH/DIAG INJ SC/IM CPT-4: 36392 10/09/2018 TRIAMCINOLONE ACET I [place] NOS CPT-4: J3301 10/09/2018 CEFTRIAXONE SODIUM I NJECTION CPT-4: J0696 10/08/2018 THER/PROPH/DIAG INJ SC/IM CPT-4: 34547 10/08/2018 CEFTRIAXONE SODIUM I NJECTION CPT-4: J0696 10/07/2018 THER/PROPH/DIAG INJ SC/IM CPT-4: 08157 10/07/2018 ROUTINE VENIPUNCTURE CPT-4: 31389 09/25/2018 COMPREHEN METABOLIC PANEL CPT-4: 89680 09/25/2018 COMPLETE CBC W/AUTO DIFF WBC CPT-4: 37895 09/25/2018 PT CPT-4: 9633107 09/25/2018 URINE CULTURE/ COLON Y COUNT CPT-4: 86737 09/10/2018 URINALYSIS NONAUTO W /O SCOPE CPT-4: 99514 09/10/2018 CEFTRIAXONE SODIUM I NJECTION CPT-4: J0696 09/08/2018 THER/PROPH/DIAG INJ SC/IM CPT-4: 66511 09/08/2018 ROUTINE VENIPUNCTURE CPT-4: 17084 08/14/2018 PT CPT-4: 9069255 08/14/2018 CEFTRIAXONE SODIUM I NJECTION CPT-4: J0696 07/02/2018 THER/PROPH/DIAG INJ SC/IM CPT-4: 98235 07/02/2018 THER/PROPH/DIAG INJ SC/IM CPT-4: 82034 07/02/2018 TRIAMCINOLONE ACET I NJ NOS CPT-4: J3301 07/02/2018 ROUTINE VENIPUNCTURE CPT-4: 29893 06/22/2018 ANTISTREPTOLYSIN O T ITER CPT-4: 72192 06/22/2018 ROUTINE VENIPUNCTURE CPT-4: 60503 06/17/2018 PROTHROMBIN TIME CPT-4: 65975 06/17/2018 URINE CULTURE/ COLON Y COUNT CPT-4: 02317 06/17/2018 CEFTRIAXONE SODIUM I NJECTION CPT-4: J0696 05/12/2018 THER/PROPH/DIAG INJ SC/IM CPT-4: 42885 05/12/2018 PROTHROMBIN TIME CPT-4: 73834 05/11/2018 CEFTRIAXONE SODIUM I NJECTION CPT-4: J0696 05/11/2018 THER/PROPH/DIAG INJ SC/IM CPT-4: 76943 05/11/2018 ROUTINE VENIPUNCTURE CPT-4: 30358 04/30/2018 PROTHROMBIN TIME CPT-4: 12084 04/30/2018 THER/PROPH/DIAG INJ SC/IM CPT-4: 12371 04/02/2018 TRIAMCINOLONE ACET I NJ NOS CPT-4: J3301 04/02/2018 IIV4 VACCINE 3 YRS+ IM AND UP CPT-4: 25096 03/24/2018 IMMUNIZATION ADMIN CPT- 4: 07723 03/24/2018 ROUTINE VENIPUNCTURE CPT-4: 10193 03/24/2018 PT CPT-4: 7712118 03/24/2018 PROTHROMBIN TIME CPT-4: 47801 02/24/2018 ROUTINE VENIPUNCTURE CPT-4: 26042 02/24/2018 ROUTINE VENIPUNCTURE CPT-4: 26446 02/05/2018 PROTHROMBIN TIME CPT-4: 22540 02/05/2018 URINE CULTURE/ COLON Y COUNT CPT-4: 39337 02/05/2018 CEFTRIAXONE SODIUM I NJECTION CPT-4: J0696 01/29/2018 THER/PROPH/DIAG INJ SC/IM CPT-4: 86365 01/29/2018 CEFTRIAXONE SODIUM I NJECTION CPT-4: J0696 01/28/2018 THER/PROPH/DIAG INJ SC/IM CPT-4: 64491 01/28/2018 URINALYSIS NONAUTO W /O SCOPE CPT-4: 81237 01/26/2018 URINE CULTURE/ COLON Y COUNT CPT-4: 04271 01/26/2018 ROUTINE VENIPUNCTURE CPT-4: 43001 01/01/2018 PROTHROMBIN TIME CPT-4: 49833 01/01/2018 THER/PROPH/DIAG INJ SC/IM CPT-4: 87677 12/25/2017 TRIAMCINOLONE ACET I NJ NOS CPT-4: J3301 12/25/2017 DEXAMETHASONE SODIUM PHOS CPT-4: J1100 12/25/2017 STREP A ASSAY W/OPTIC CPT-4: 49076 12/11/2017 CEFTRIAXONE SODIUM I NJECTION CPT-4: J0696 12/11/2017 THER/PROPH/DIAG INJ SC/IM CPT-4: 71074 12/11/2017 ROUTINE VENIPUNCTURE CPT-4: 93929 12/01/2017 ANTISTREPTOLYSIN O T ITER CPT-4: 82710 12/01/2017 PROTHROMBIN TIME CPT-4: 43760 12/01/2017 VITAMIN D TOTAL (25 HYDROXY) CPT-4: 29910 12/01/2017 VITAMIN B-12 CPT-4: 94951 12/01/2017 SPECIMEN HANDLING OF FICE-LAB CPT-4: 57640 11/05/2017 ROUTINE VENIPUNCTURE CPT-4: 16272 10/14/2017 ANTISTREPTOLYSIN O T ITER CPT-4: 59458 10/14/2017 ROUTINE VENIPUNCTURE CPT-4: 33447 10/06/2017 PROTHROMBIN TIME CPT-4: 05350 10/06/2017 THER/PROPH/DIAG INJ SC/IM CPT-4: 85110 10/06/2017 TRIAMCINOLONE ACET I NJ NOS CPT-4: J3301 10/06/2017 ROUTINE VENIPUNCTURE CPT-4: 67280 10/01/2017 VITAMIN B-12 CPT-4: 57815 10/01/2017 FOLIC ACID CPT-4: 59239 10/01/2017 ASSAY THYROID STIM H ORMONE CPT-4: 38804 10/01/2017 ASSAY OF FREE THYROXINE CPT-4: 47055 10/01/2017 ASSAY TRIIODOTHYRONI NE (T3) CPT-4: 20030 10/01/2017 ASSAY OF BLOOD/URIC ACID CPT-4: 18608 10/01/2017 RHEUMATOID FACTOR QUANT CPT-4: 48654 10/01/2017 RBC SED RATE AUTOMATED CPT-4: 94275 10/01/2017 ANTISTREPTOLYSIN O T ITER CPT-4: 40123 10/01/2017 ASSAY OF IRON CPT-4: 23127 10/01/2017 ASSAY OF FERRITIN CPT-4: 46078 10/01/2017 ANTINUCLEAR ANTIBODIES CPT-4: 79331 10/01/2017 A1C HPLC CPT-4: 17026 10/01/2017 VITAMIN D TOTAL (25 HYDROXY) CPT-4: 38247 10/01/2017 THER/PROPH/DIAG INJ SC/IM CPT-4: 48331 09/05/2017 TRIAMCINOLONE ACET I NJ NOS CPT-4: J3301 09/05/2017 URINALYSIS NONAUTO W /O SCOPE CPT-4: 22290 09/05/2017 URINE CULTURE/ COLON Y COUNT CPT-4: 70716 09/05/2017 ROUTINE VENIPUNCTURE CPT-4: 52571 09/04/2017 PROTHROMBIN TIME CPT-4: 06926 09/04/2017 ROUTINE VENIPUNCTURE CPT-4: 97283 08/07/2017 COMPLETE CBC W/AUTO DIFF WBC CPT-4: 36176 08/07/2017 COMPREHEN METABOLIC PANEL CPT-4: 44956 08/07/2017 PROTHROMBIN TIME CPT-4: 33714 08/07/2017 INFLUENZA ASSAY W/OPTIC CPT-4: 80846 07/15/2017 ROUTINE VENIPUNCTURE CPT-4: 17293 07/15/2017 COMPREHEN METABOLIC PANEL CPT-4: 77446 07/15/2017 COMPLETE CBC W/AUTO DIFF WBC CPT-4: 38437 07/15/2017 CEFTRIAXONE SODIUM I NJECTION CPT-4: J0696 07/04/2017 THER/PROPH/DIAG INJ SC/IM CPT-4: 81984 07/04/2017 THER/PROPH/DIAG INJ SC/IM CPT-4: 55559 07/04/2017 TRIAMCINOLONE ACET I NJ NOS CPT-4: J3301 07/04/2017 CEFTRIAXONE SODIUM I NJECTION CPT-4: J0696 07/02/2017 THER/PROPH/DIAG INJ SC/IM CPT-4: 82649 07/02/2017 CEFTRIAXONE SODIUM I NJECTION CPT-4: J0696 07/01/2017 THER/PROPH/DIAG INJ SC/IM CPT-4: 88769 07/01/2017 ROUTINE VENIPUNCTURE CPT-4: 09085 06/19/2017 PROTHROMBIN TIME CPT-4: 84255 06/19/2017 THER/PROPH/DIAG INJ SC/IM CPT-4: 35899 04/01/2017 TRIAMCINOLONE ACET I NJ NOS CPT-4: J3301 04/01/2017 ROUTINE VENIPUNCTURE CPT-4: 09172 02/10/2017 PROTHROMBIN TIME CPT-4: 46017 02/10/2017 URINALYSIS NONAUTO W /O SCOPE CPT-4: 03567 02/10/2017 URINE CULTURE/ COLON Y COUNT CPT-4: 21427 02/10/2017 ROUTINE VENIPUNCTURE CPT-4: 61579 02/05/2017 PROTHROMBIN TIME CPT-4: 10772 02/05/2017 THROAT CULTURE CPT-4: 37738 02/03/2017 STREP A ASSAY W/OPTIC CPT-4: 40319 01/13/2017 ROUTINE VENIPUNCTURE CPT-4: 14616 12/18/2016 PROTHROMBIN TIME CPT-4: 80797 12/18/2016 URINE CULTURE/ COLON Y COUNT CPT-4: 53085 08/27/2016 ASSAY THYROID STIM H ORMONE CPT-4: 85081 08/27/2016 COMPREHEN METABOLIC PANEL CPT-4: 28021 08/27/2016 COMPLETE CBC W/AUTO DIFF WBC CPT-4: 07267 08/27/2016 PROTHROMBIN TIME CPT-4: 63885 08/27/2016 ROUTINE VENIPUNCTURE CPT-4: 32977 08/27/2016 ROUTINE VENIPUNCTURE CPT-4: 16095 05/24/2016 COMPREHEN METABOLIC PANEL CPT-4: 40545 05/24/2016 PROTHROMBIN TIME CPT-4: 05905 05/24/2016 URINALYSIS NONAUTO W /O SCOPE CPT-4: 77320 04/23/2016 URINE CULTURE/ COLON Y COUNT CPT-4: 58022 04/23/2016 PRESCRIP TRANSMIT A ERX SY CPT-4: G8553 04/23/2016 AEROBIC WOUND CULTUR E & STN CPT-4: 39905 04/17/2016 ROUTINE VENIPUNCTURE CPT-4: 99107 04/11/2016 PROTHROMBIN TIME CPT-4: 91440 04/11/2016 ROUTINE VENIPUNCTURE CPT-4: 47820 03/12/2016 COMPLETE CBC W/AUTO DIFF WBC CPT-4: 08055 03/12/2016 COMPREHEN METABOLIC PANEL CPT-4: 21155 03/12/2016 ASSAY THYROID STIM H ORMONE CPT-4: 66052 03/12/2016 PROTHROMBIN TIME CPT-4: 16553 03/12/2016 ROUTINE VENIPUNCTURE CPT-4: 27845 02/12/2016 PROTHROMBIN TIME CPT-4: 55917 02/12/2016 ROUTINE VENIPUNCTURE CPT-4: 38665 02/01/2016 PROTHROMBIN TIME CPT-4: 62148 02/01/2016 ROUTINE VENIPUNCTURE CPT-4: 35023 01/22/2016 PROTHROMBIN TIME CPT-4: 48248 01/22/2016 ROUTINE VENIPUNCTURE CPT-4: 84147 11/10/2015 PROTHROMBIN TIME CPT-4: 25700 11/10/2015 CEFTRIAXONE SODIUM I NJECTION CPT-4: J0696 11/10/2015 THER/PROPH/DIAG INJ SC/IM CPT-4: 93574 11/10/2015 EB VIRUS VCA G/M + E BNA + EA CPT-4: 10614|63643 x 2|31330 016 THROAT CULTURE CPT-4: 67865 11/09/2015 STREP A ASSAY W/OPTIC CPT-4: 30659 11/09/2015 STREP A ASSAY W/OPTIC CPT-4: 51578 10/02/2015 ROUTINE VENIPUNCTURE CPT-4: 62046 09/29/2015 COMPLETE CBC W/AUTO DIFF WBC CPT-4: 27726 09/29/2015 ASSAY OF IRON CPT-4: 83002 09/29/2015 PROTHROMBIN TIME CPT-4: 62441 09/29/2015 ROUTINE VENIPUNCTURE CPT-4: 66123 07/27/2015 PROTHROMBIN TIME CPT-4: 91631 07/27/2015 URINALYSIS NONAUTO W /O SCOPE CPT-4: 00438 06/30/2015 URINE CULTURE/ COLON Y COUNT CPT-4: 81079 06/30/2015 ROUTINE VENIPUNCTURE CPT-4: 47537 06/21/2015 PROTHROMBIN TIME CPT-4: 47550 06/21/2015 URINE CULTURE/ COLON Y COUNT CPT-4: 36501 05/31/2015 ROUTINE VENIPUNCTURE CPT-4: 68789 05/24/2015 PROTHROMBIN TIME CPT-4: 86371 05/24/2015 URINALYSIS NONAUTO W /O SCOPE CPT-4: 01538 05/24/2015 Vital Signs Date Vital 02/17/2019 Blood [...] 1: 122/70 Code: 8480-6 BMI: 32.2 Code: 69509-1 Heart Rate 1: 88 bpm Height: 5'3" Respiratory Rate: 20 bpm SpO2: 96% Temperature: 36.8 (C ) / 98.2 (F) Weight: 182 lbs 07/23/2018 Blood Pressure 1: 132/80 Code: 8480-6 Heart Rate 1: 84 bpm Respiratory Rate: 20 bpm SpO2: 96% Temperature: 36.6 (C ) / 97.8 (F) Weight: 187 lbs 07/08/2018 Blood Pressure 1: 122/70 Code: 8480-6 BMI: 32.2 Code: 09651-4 Heart Rate 1: 88 bpm Height: 5'3" Respiratory Rate: 20 bpm Temperature: 36.6 (C ) / 97.8 (F) Weight: 182 lbs 07/02/2018 Blood Pressure 1: 124/68 Code: 8480-6 BMI: 32.8 Code: 07287-0 Heart Rate 1: 84 bpm Height: 5'3" Respiratory Rate: 20 bpm SpO2: 98% Temperature: 36.3 (C ) / 97.3 (F) Weight: 185 lbs 06/02/2018 Blood Pressure 1: 132/90 Code: 8480-6 Heart Rate 1: 84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 01/04/2019 Appointment: Ivon Sky [address] ACUTE ILLNESS 01/04/2019 Appointment: Kristine Brambila WPtel: [address] [place] [address] LAB 12/18/2018 Appointment: Kristine Brambila WPtel: [address] [place] [address] ACUTE ILLNESS 12/16/2018 Visit Diagnosis Plan: Benign lipomatous neoplasm of skin and subcutaneous tissue of trunk Discussion: Monitor/Observe ICD-9 : 214.1 ICD-10 : D17.1 12/03/2018 Visit Diagnosis Plan: Anemia, unspecified Discussion: Check B12, iron, ferritin levels ICD-9 : 285.9 ICD-10 : D64.9 12/03/2018 Visit Diagnosis Plan: Other fatigue Discussion: Update CBC, TSH, Free T4, CMP ICD-9 : 780.79 ICD-10 : R53.83 12/03/2018 Appointment: rKistine Brambila WPtel: [address] [place] [address] ACUTE ILLNESS 12/03/2018 Visit Diagnosis Plan: Enlarged [...] ICD-10 : J02.9 12/02/2018 Appointment: Ivon Sky [address] [place] [address] FOLLOW UP 12/02/2018 Visit Diagnosis Plan: long term care pharmacist (current ) use of anticoagulants Discussion: pt/inr drawn in office ICD-9 : V58.61 ICD-10 : Z79.01 11/30/2018 Visit Diagnosis Plan: Acute suppurative otitis media without spontaneous rupture of ear drum, left ear Discussion: rocephin shot given in office. instructed to call or rtc with any new or worsening concerns. tylenol prn pain. ICD-9 : 382.00 ICD-10 : H66.002 11/30/2018 Appointment: Ivon Sky [address] ACUTE ILLNESS 11/30/2018 Patient Education: Coumadin- OptimizeRX Coupon [id number] https://www.Wonderloop/Me[employer]am/resources/getResource/61/[email or web address] Completed 11/30/2018 Appointment: Kristine Brambila WPtel: [address] [place] [address] [place] UA 11/20/2018 Appointment: Kristine Brambila WPtel: [address] [place] [address] US INJECTION 11/12/2018 Visit Diagnosis Plan: Streptococcal pharyngitis Discussion: Strep A- positive ASO titer today along with CBC. Rocephin 1 gram. RTC tmrw for another injection. Patient states understanding. ICD-9 : 034.0 ICD-10 : J02.0 11/11/2018 Appointment: Lulu Navarro [address] [place] [address] ACUTE ILLNESS 11/11/2018 Appointment: Kristine Brambila WPtel: [address] [place] [address] ACUTE ILLNESS 10/27/2018 Appointment: Kristine Brambila WPtel: [address] [place] [address] US INJECTION 10/09/2018 Visit Diagnosis Plan: Acute recurrent maxillary sinusi tis Discussion: Rocephin 1 gram administered in clinic- patient tolerated well. Continue with supportive treatment at home as well. Tylenol for headache. Salt water gargles and sinus rinses advised. Patient states understanding. ICD-9 : 461.0 ICD-10 : J01.01 10/08/2018 Appointment: Lulu Navarro [address] [place] [address] [place] INJECTION 10/08/2018 Visit Diagnosis Plan: Acute recurrent maxillary sinusi tis Discussion: Rocephin- 1 gram administered in clinic. Patient tolerated well. Sinus rinses encouraged. Rest and fluids. Tylenol or Motrin for pain and fever. FU PRN. Patient states understanding. ICD-9 : 461.0 ICD-10 : J01.01 10/07/2018 Appointment: Lulu Navarro [address] [place] [address] ACUTE ILLNESS 10/07/2018 Visit Diagnosis Plan: Dizziness [...] ICD-10 : R42 09/25/2018 Appointment: Lulu Navarro [address] [place] [address] ACUTE ILLNESS 09/25/2018 Appointment: Kristine Brambila WPtel: [address] [place] [address] 09/10/2018 Visit Diagnosis Plan: Furuncle right hand [...] : R22.1 09/08/2018 Appointment: Kristine Brambila WPtel: [facility] ACUTE ILLNESS 09/08/2018 Patient Education: cefdinir- OptimizeRX Coupon [id number] [id number] https://www.Wonderloop/samplemd/resources/getResource/61/l1018l89-5q62-2orf-z3 Completed 09/08/2018 Appointment: Krist[facility] Brambila [facility]Ptel[facility] [address] [facility] [facility] 08/14/2018 Visit Diagnosis Plan: Acute sinusitis, [...] ICD-10 : H92.02 07/23/2018 Appointment: Ivon Sky [address] [place] [address] ACUTE ILLNESS 07/23/2018 Patient Education: cyclobenzaprine- Opti mizeRX Coupon [id number] https://www.Wonderloop/Me[employer]/resources/getResource/61/l000o2zw-w015-297a-jx [email or web address].pdf Completed 07/23/2018 Visit Diagnosis Plan: Streptococcal infe ction, unspecified site Discussion: Pen Jude Dove Sees dentist today t o assess tooth ICD-9 : 041.00 ICD-10 : A49.1 07/08/2018 Appointment: Kristine Brambila WPtel: [address] [facility] FO[facility] 07/08/2018 Patient Education: penicillin V potassiu m- OptimizeRX Coupon [id number] https://www.Wonderloop/O2 Medtechmd/resources/getResource/61/[email or web address] fa-[email or web address].pdf Completed 07/08/2018 Visit Diagnosis Plan: Localized enlarged [...] ICD-10 : K04.6 07/02/2018 Appointment: Ivon Sky [address] [place] [address] ACUTE ILLNESS 07/02/2018 Appointment: Kristine Brambila WPtel: [address] [place] [address] LAB 06/22/2018 Appointment: Kristine Brambila WPtel: [address] [place] [address] UA 06/17/2018 Visit Diagnosis Plan: Acute sinusitis, unspecified Discussion: dc keflex. start cefdinir daily for 10 days. saline up nares prn congestion. if no improvement after antibiotics or worsening symtpoms, call clinic. ICD-9 : 461.9 ICD-10 : J01.90 06/02/2018 Appointment: Ivon Sky [address] [place] [address] ACUTE ILLNESS 06/02/2018 Appointment: Kristine Brambila WPtel: [address] [place] [address] [place] INJECTION 05/12/2018 Visit Diagnosis Plan: correction (current ) use of anticoagulants Discussion: pt/inr [...] ICD-10 : H70.002 05/11/2018 Appointment: Ivon Sky [address] [place] [address] FOLLOW UP 05/11/2018 Appointment: Kristine Brambila WPtel: [address] [facility]66[facility] LAB 04/30/2018 Visit Diagnosis Plan: Acute sinusitis, unspecified Discussion: 40 mg kenalog given to patient in office. clindamycin prescribed for patient to take as directed. instructed to stop nasal sprays due to worsening pain/irritation and only use saline rinse up nares for now. call with any new or worsening symptoms. ICD-9 : 461.9 ICD-10 : J01.90 04/02/2018 Appointment: Ivon Sky [address] [place] [address] ACUTE ILLNESS 04/02/2018 Patient Education: Patient Medication Summary Completed 04/02/2018 Appointment: Kristine Brambila WPtel: [address] [facility]66[facility] LAB 03/24/2018 Patient Education: Patient Medication Summary [...] ICD-10 : G43.909 03/16/2018 Appointment: Ivon Sky [address] [place] [address] ACUTE ILLNESS 03/16/2018 Patient Education: Patient Medication Summary Completed 03/16/2018 Appointment: Kristine Brambila WPtel: [address] [place], [place] [phone] [place] LAB 02/24/2018 Patient Education: Patient Medication Summary Completed 02/24/2018 Appointment: Kristine Brambila WPtel: [address] [place], [place] [phone] [place] RESCHEDULED 02/18/2018 Visit Diagnosis Plan: Abdominal distension (gaseous) Discussion: Flagyl Restora Rx 1 daily Follow Up: 2 weeks ICD-9 : 787.3 ICD-10 : R14.0 02/16/2018 Visit Diagnosis Plan: Epigastric pain Discussion: Pepcid BID ICD-9 : 789.06 ICD-10 : R10.13 02/16/2018 Visit Diagnosis Plan: Diarrhea, unspecified Discussion: yl ICD-9 : 787.91 ICD-10 : R19.7 02/16/2018 Appointment: Kristine Brambila WPtel: [address] [place] [address] ACUTE ILLNESS 02/16/2018 Patient Education: Patient Medication Summary Completed 02/16/2018 Appointment: Kristine Brambila WPtel: [address] [place], [place] [phone] [place] INJECTION 02/05/2018 Patient Education: Patient Medication Summary Completed 02/05/2018 Appointment: Kristine Brambila WPtel: [address] [place], [place] [phone] [place] INJECTION 01/29/2018 Patient Education: Patient Medication Summary Completed 01/29/2018 Appointment: Kristine Brambila WPtel: [address] [place], [place] [phone] [place] INJECTION 01/28/2018 Patient Education: Patient Medication [...] ICD-10 : H66.001 01/26/2018 Appointment: Ivon Sky [address] [place] [address] ACUTE ILLNESS 01/26/2018 Patient Education: Patient Medication [...] ICD-10 : K13.79 01/01/2018 Appointment: Ivon Sky [address] [place] [address] ACUTE ILLNESS 01/01/2018 Patient Education: Patient Medication [...] ICD-10 : G43.909 12/25/2017 Appointment: Ivon Sky [address] [place], [place] [address] ACUTE ILLNESS 12/25/2017 Patient Education: Patient Medication Summary Completed 12/25/2017 Visit Diagnosis Plan: Acute pharyngitis, unspecified Discussion: rapid strep negative. rocephin injection given in office. clindamycin prescribed as well to start tomorrow for 10 days. increase fluid intake. call or rtc next week if new or worsening symptoms. ICD-9 : 462 ICD-10 : J02.9 12/11/2017 Appointment: Ivon Sky [address] [place] [address] ACUTE ILLNESS 12/11/2017 Patient Education: Patient Medication Summary Completed 12/11/2017 Appointment: Kristine Brambila WPtel: [address] [place] [address] [place] LAB 12/01/2017 Patient Education: Patient Medication Summary Completed 12/01/2017 Visit Diagnosis Plan: Encounter for gyne cological examination (general) (routine) without abnormal findings Discussion: Pap done as has a history of choriocarcinoma Had mammogram last month ICD-9 : V72.31 ICD-10 : Z01.419 11/05/2017 Appointment: Kristine Brambila WPtel: [address] [place] [address] Annual Well Visit 11/05/2017 Patient Education: Patient Medication Summary Completed 11/05/2017 Appointment: Kristine Brambila WPtel: [address] [place] [address] LAB 10/14/2017 Patient Education: Patient Medication Summary Completed 10/14/2017 Care Plan: X-RAY EXAM OF SHOULDER right LOINC : 16685-5 Pending 10/07/2017 Visit Diagnosis Plan: Pain in right shoulder Discussion: xray ordered of right shoulder to rule out fracture. 40 mg kenalog given as one shot to assist with pain. ICD-9 : 719.41 ICD-10 : M25.511 10/06/2017 Visit Diagnosis Plan: long term care pharmacist (current ) use of anticoagulants Discussion: pt/inr completed at today's visit. ICD-9 : V58.61 ICD-10 : Z79.01 10/06/2017 Appointment: Ivon Sky [address] [place] [address] ACUTE ILLNESS 10/06/2017 Patient Education: Patient Medication [...] : I73.00 10/01/2017 Appointment: Kristine Brambila WPtel: [address] [place] [address] ACUTE ILLNESS 10/01/2017 Patient Education: Patient Medication [...] ICD-10 : T23.262A 09/10/2017 Appointment: Ivon Sky [address] [place] [address] ACUTE ILLNESS 09/10/2017 Patient Education: Patient Medication Summary Completed 09/10/2017 Appointment: Kristine Brambila WPtel: [address] [place] [address] US INJECTION 09/05/2017 Patient Education: Patient Medication Summary Completed 09/05/2017 Appointment: Kristine Brambila WPtel: [address] [place] [address] [place] LAB 09/04/2017 Patient Education: Patient Medication Summary Completed 09/04/2017 Appointment: Kristine Brambila WPtel: [address] [place], [place] [phone] [place] LAB 08/07/2017 Patient Education: Patient Medication Summary Completed 08/07/2017 Patient Education: Patient Medication Summary Completed 07/21/2017 Care Plan: CHEST X-RAY 2VW FRONTAL&LATL LOINC : 39012-8 Pending 07/21/2017 Visit Diagnosis Plan: Acute upper [...] ICD-10 : K21.9 07/15/2017 Appointment: Ivon Sky [address] [place] [address] ACUTE ILLNESS 07/15/2017 Patient Education: Patient Medication Summary Completed 07/15/2017 Appointment: Kristine Brambila WPtel: [address] [place], [place] [phone] [place] INJECTION 07/04/2017 Patient Education: Patient Medication Summary Completed 07/04/2017 Appointment: Kristine Brambila WPtel: [address] [place], [place] [phone] [place] INJECTION 07/02/2017 Patient Education: Patient Medication [...] : H66.92 07/01/2017 Appointment: Ivon Sky [address] ACUTE ILLNESS 07/01/2017 Patient Education: Patient Medication Summary Completed 07/01/2017 Care Plan: US EXAM OF HEAD AND NECK Pending 07/01/2017 Appointment: Kristine Brambila WPtel: [phone] [id number] [place] LAB 06/19/2017 Patient Education: Patient Medication [...] : J18.9 05/27/2017 Appointment: Ivon Sky 504 [facility] ACUTE ILLNESS 05/27/2017 Patient Education: Patient Medication [...] : G47.00 05/20/2017 Appointment: [facility] [facility] 05/20/2017 Patient Education: Patient Medication Summary Completed 05/20/2017 Visit Diagnosis Plan: Headache Discu ssion: Discussed likely Migraine Discussed MRI results Discussed changing acetazolamide to HCTZ ICD-9 : 784.0 ICD-10 : R51 04/22/2017 Visit Diagnosis Plan: Diplopia Discu ssion: Updated dilated eye exam ICD-9 : 368.2 ICD-10 : H53.2 04/22/2017 Appointment: Kristine Brambila WPtel: [address] [place] [address] US FOLLOW UP 04/22/2017 Patient Education: Patient Medication Summary Completed 04/22/2017 Appointment: Kristine Brambila WPtel: [address] [place] [address] US RESCHEDULED 04/07/2017 Visit Plan: Saline nasal flushes pr n. Tylenol/Motrin prn headache. Notify if persists/symptoms worsening. 04/01/2017 Visit Plan: Saline nasal flushes pr n. Tylenol/Motrin prn headache. Notify if persists/symptoms worsening. 04/01/2017 Visit NOS Plan: Plan Notes: Saline nasal flushes prn. Tyle... 04/01/2017 Visit Diagnosis Plan: Acute sinusitis, unspecified Discussion: Kenalog 40mg IM x1 Decadron/Garamycin Nose [place] Mix Has appointment on April 28 with ENT ICD-9 : 461.9 ICD-10 : J01.90 04/01/2017 Appointment: Kristine Brambila WPtel: [address] [place] [address] ACUTE ILLNESS 04/01/2017 Patient Education: Patient Medication Summary Completed 04/01/2017 Referral: Serjio Lugo WPtel: [address] [address] [place] Referral Appointment Requested 03/20/2017 Patient Education: Patient Medication Summary Completed 02/27/2017 Care Plan: CT ABDOMEN W/O DYE abd/pe lvis stone search LOINC : 41495-6 Pending 02/27/2017 Patient Education: Patient Medication Summary Completed 02/12/2017 Care Plan: MRI NECK SPINE W/O DYE LOINC : 37694-7 Pending 02/12/2017 Appointment: Kristine Brambila WPtel: [address] [place] [address] [place] LAB 02/10/2017 Patient Education: Patient Medication [...] ICD-10 : M54.2 02/05/2017 Appointment: Kristine Brambilatel: [address] [place] [address] ACUTE ILLNESS 02/05/2017 Patient Education: Patient Medication Summary Completed 02/05/2017 Care Plan: Referral Order SNOMED-CT : [id number] Pending 02/05/2017 Appointment: Kristine Brambila WPtel: [address] [place], [place] [phone] [place] THROAT SWAB 02/03/2017 Patient Education: Patient Medication Summary Completed 02/03/2017 Appointment: Kristine Brambila WPtel: [address] [place], [place] [phone] [place] 01/13 canceled~sl CANCELED 01/28/2017 Visit Plan: [...] : J02.8 01/13/2017 Appointment: Kristine Brambila WPtel: [address] [place], [place] [phone] ACUTE ILLNESS 01/13/2017 Patient Education: Patient Medication Summary Completed 01/13/2017 Appointment: Kristine Brambila WPtel: [address] [place], [place] [phone] LAB 12/18/2016 Patient Education: Patient Medication Summary Completed 12/18/2016 Visit Diagnosis Plan: Pain in unspecified joint Discussion: Will retry methotrexate since has worked in past to greatly reduce patient's pain--4 tabs week one then 5 tabs week 2 then 6 tabs weekly and fwup in 6 weeks ICD-9 : 719.49 ICD-10 : M25.50 11/27/2016 Appointment: Kristine Brambila WPtel: [address] [place], [place] [phone] 11/26 lm~sl 11/26 confimed~sl MEDICATION REVIEW 11/27/2016 Patient Education: Patient Medication Summary Completed 11/27/2016 Visit Plan: Supportive care. Rest, Fluids, Tylenol/Motrin prn fever or bodyaches. Notify if worsening symptoms. 08/27/2016 Visit Plan: Supportive care. Rest, Fluids, Tylenol/Motrin prn fever or bodyaches. Notify if worsening symptoms. 08/27/2016 Visit NOS Plan: Plan Notes: Support gauri care. Rest, Fluids... 08/27/2016 Visit Diagnosis Plan: long term care pharmacist (current ) use of anticoagulants Discussion: PT/INR drawn ICD-9 : V58.61 ICD-10 : Z79.01 08/27/2016 Visit Diagnosis Plan: Dysuria Discus steven: Culture urine ICD-9 : 788.1 ICD-10 : R30.0 08/27/2016 Visit Diagnosis Plan: URI, ACUTE Dis cussion: Supportive care ICD-9 : 465.9 ICD-10 : J06.9 08/27/2016 Appointment: Kristine Brambila WPtel: [address] [place], [place] [phone] / confirmed`sl MEDICATION REVIEW 08/27/2016 Patient Education: Patient Medication Summary Completed 08/27/2016 Appointment: Kristine Brambila WPtel: [address] [place], [place] [phone] BP CHECK 07/08/2016 Patient Education: Patient Medication Summary Completed 07/08/2016 Appointment: Kristine Brambila WPtel: [address] [place], [place] [phone] LAB 05/24/2016 Patient Education: Patient Medication Summary Completed 05/24/2016 Appointment: Kristine Brambila WPtel: [address] [place], [place] [phone] 04/24 will not be able to get [...] with culture results 04/23/2016 Appointment: Nayeli Anderson [address] [place], [place] [address] ACUTE ILLNESS 04/23/2016 Patient Education: Patient [...] oral abx 04/17/2016 Appointment: Nayeli Anderson [address] ACUTE ILLNESS 04/17/2016 Patient Education: Patient Medication Summary Completed 04/17/2016 Patient Education: [facility] - Saving AutoInj - 18-64 - Dynamic Portal ID Completed 04/17/2016 Appointment: Kristine Brambila WPtel: [address] [place] [address] [place] LAB 04/11/2016 Patient Education: Patient Medication [...] for migraines 03/12/2016 Appointment: Kristine Brambila WPtel: [address] [place] [address] 03/12 confirmed-sp FOLLOW UP 03/12/2016 Patient Education: Patient Medication Summary Completed 03/12/2016 Appointment: Kristine Brambila WPtel: [address] [place] [address] LAB 02/12/2016 Patient Education: Patient Medication Summary Completed 02/12/2016 Appointment: Kristine Brambila WPtel: [address] [place], [place] [phone] [place] LAB 02/01/2016 Patient Education: Patient Medication Summary Completed 02/01/2016 Appointment: Kristine Brambila WPtel: [address] [place], [place] [id number] LAB 01/22/2016 Patient Education: Patient Medication [...] improvement 11/10/2015 Appointment: Julee Slater WPtel: [phone] [facility] ACUTE ILLNESS 11/10/2015 Patient Education: Patient Medication [...] Anderson 2[address] [facility] ACUTE ILLNESS 11/09/2015 Patient Education: Patient Medication Summary Completed 11/09/2015 Referral: Maximiliano Neves WPtel: [phone] [id number] [place] Spoke with Sally at Dr. Ta's offic e. Patient is scheduled for 10/16/15 at 3:15pm. Demographics and notes have been faxed. Patient has been informed. -sp Initi ated 10/16/2015 Visit Plan: Proceed with biopsy/rem oval of right posterior neck node Mammogram ordered--US of right axilla if needed 10/10/2015 Appointment: Kristine Brambila WPtel: [phone] [facility] 10/08 confirmed ~sl FOLLOW UP 10/10/2015 Patient Education: Patient Medication Summary Completed 10/10/2015 Patient Education: [facility] - Saving AutoInj - 18-64 - Dynamic Portal ID Completed 10/10/2015 Care Plan: MAMMOGRAM SCREENING LOINC : 70029-5 Pending 10/10/2015 Visit Plan: Labs ordered - [...] with Dr Brambila for next week for terminal clerk management of pain 10/02/2015 Visit Plan: Labs [...] with Dr Brambila for next week for skilled nursing management of pain 10/02/2015 Appointment: Nayeli Anderson [address] ACUTE ILLNESS 10/02/2015 Patient Education: Patient Medication Summary Completed 10/02/2015 Patient Education: [facility] - Saving AutoInj - 18-64 - Dynamic Portal ID Completed 10/02/2015 Care Plan: US EXAM OF HEAD AND NECK Pending 10/02/2015 Appointment: Kristine Brambila WPtel: [address] [place], [place] [phone] [place] LAB 09/29/2015 Patient Education: Patient Medication Summary Completed 09/29/2015 Appointment: Kristine Brambila WPtel: [address] [place], [place] [phone] [place] LAB 07/27/2015 Patient Education: Patient Medication Summary Completed 07/27/2015 Visit Plan: Trial of Savella Did no t tolerate lyrica Did not tolerate cymbalta 07/10/2015 Appointment: Kristine Brambila WPtel: [address] [place], [place] [address] 07/10 appt confirmed cn FOLLOW UP 07/10/2015 Patient Education: Patient Medication Summary Completed 07/10/2015 Appointment: Kristine Brambila WPtel: [phone] [facility] [facility] 06/30/2015 Patient Education: Patient Medication Summary Completed 06/30/2015 Visit Plan: Recommended Vitamin E o il topically bid to area of scar. Currently taking Amoxicillin for sinusitis. Recommend Flonase nasal spray 06/27/2015 Visit Plan: Recommended Vitamin E o il topically bid to area of scar. Currently taking Amoxicillin for sinusitis. Recommend Flonase nasal spray 06/27/2015 Appointment: Meli Hatch WPtel: [facility]5 [facility] ACUTE ILLNESS 06/27/2015 Patient Education: Patient Medication Summary Completed 06/27/2015 Appointment: Meli Hatch WPtel: [address] [place], [place] [phone] 06/22/15 appt confirmed and she will drea jose new insurance card cn ACUTE ILLNESS 06/26/2015 Appointment: Kristine Brambila WPtel: [facility]1 [facility] [facility] 06/21/2015 Patient Education: Patient Medication Summary Completed 06/21/2015 Visit Plan: Add cymbalta at 30mg da loli Repeat PT/INR in 2weeks Recheck 1mo Awaiting ID to reschedule 06/08/2015 Visit Plan: Add cymbalta at 30mg da loli Repeat PT/INR in 2weeks Recheck 1mo Awaiting ID to reschedule 06/08/2015 Appointment: Kristine Brambila WPtel: [facility] 06/07 lm ~sl 06/08 confirmed ~sl FOLLOW UP 06/08/2015 Patient Education: Patient Medication Summary Completed 06/08/2015 Patient Education: [facility] - Saving AutoInj - Cymbalta - 18-64 - Dynamic Portal ID Completed 06/08/2015 Patient Education: [facility] Jennifer Azevedo AutoInj - 18-64 - Dynamic Portal ID Completed 06/08/2015 Appointment: Kristine Brambila WPtel: [phone] [facility] [place] [address] 05/31/2015 Patient Education: Patient Medication Summary Completed 05/31/2015 Visit Plan: Check PT/INR today Stop ped Lyrica due to fluid retention Has appt. scheduled at [facility] with hematology and infectious disease 06/08 Follow-up appt. in 2 weeks following appt. at . 05/24/2015 Visit Plan: Check PT/INR today Stop ped Lyrica due to fluid retention Has appt. scheduled at [facility] with hematology and infectious disease 06/08 Follow-up appt. in 2 weeks following appt. at . 05/24/2015 Appointment: Meli Hatch WPtel: [phone] [facility]66[facility] NEW PATIENT 05/24/2015 Patient Education: Patient Medication Summary Completed 05/24/2015 Patient Education: [facility] Jennifer Azevedo [employer] - [id number] - Dynamic Portal ID Completed 05/24/2015 Referral: Annamarie Melo WPtel: [facility] [address] Referral Initiated Instructions Comment . Rapid [...] to fluid retention Has appt. scheduled at [facility] with hematology and infectious disease 06/08 Follow-up appt. in 2 weeks following appt. at . . Check PT/INR today Stopped Lyrica due to fluid retention Has appt. scheduled at [facility] with hematology and infectious disease [...] with Dr Brambila for next week for skilled nursing management of pain . Labs ordered - [...] with Dr Brambila for next week for skilled nursing management of pain . Recommended Vitami n [...]
--- OUTSIDE RECORDS SUMMARY | 2020-01-28 13:54 | XMS REPORT | CCD ---
Author Author Heydi Hatch APRN Organization [facility] Address [address] [place] [address] Phone Care Team Providers Care Head Bucker Name Role Phone Kristine Brambila D.O., PP Unavailable CCM Unavailable Summary Purpose Interface Exchange Insurance Providers Payer name Policy type / Coverage type Covered libertarian ID Effective Begin Date Effective End Date Blue Cross Blue Shield Blue Cross/Bl ue Shield [id number] 2018 Un known Family History Family History data not found Social History Social History Element Codes Description Effective Dates Tobacco history SNOMED CT: [id number] Current every day smoker 06/08/2015 Allergies, Adverse [...] ICD-9: 786.2 ICD-10: R05 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 ICD-10: [...] 02/10/2017 Unknown Pelvic and perineal pain ICD-9: [id number] ICD-10: R10.2 Active 02/10/2017 Unknown Cervicalgia ICD-9: [...] COUGH ICD-9: 786.2 ICD-10: R05 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/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 ICD-10: [...] 02/10/2017 Active Pelvic and perineal pain ICD-9: [id number] ICD-10: R10.2 02/10/2017 Active Cervicalgia ICD-9: 723.1 [...] Fill Instructions acetazolamide 125 mg tablet RxNorm: 933161 1 TABLET(S) PO BID 02/15/2019 04/15/2019 Active cholestyramine (with sugar) 4 gram oral powder RxNorm: 477832 1 UNIT DOSE PO QD 02/15/2019 04/15/2019 Ac tive penicillin V potassi um 500 mg tablet RxNorm: 569136 1 Tablet(s) PO BID 02/10/2019 02/09/2019 In active penicillin V potassi um 500 mg tablet RxNorm: 110541 1 Tablet(s) PO BID 02/10/2019 02/16/2019 In active Diflucan 150 mg tablet RxNorm: 409985 TABLET(S) 1 TABLET(S) PO QW NEEDED 02/08/2019 No Stop Date Active Anusol-HC 25 mg rect al suppository RxNorm: 2679023 1 Suppository RTL QD as needed 02/08/2019 03/09/2019 Ac tive hydrocodone 10 mg-ac etaminophen 325 mg tablet RxNorm: 364598 1 Tablet(s) PO Q4-6H as needed for pain 02/01/2019 No Stop Date Active hydrocodone 10 mg-ac etaminophen 325 mg tablet RxNorm: 592730 1 Tablet(s) PO Q4-6H as needed for pain 02/01/2019 No Stop Date Active Diflucan 150 mg tablet RxNorm: 252563 Tablet(s) TABLET(S) 1 TABLET(S) PO QW NEEDED 01/28/2019 No Stop Date Active Vistaril 25 mg capsule RxNorm: 242109 1 Capsule(s) PO TID 01/27/2019 07/25/2019 Active ProAir HFA 90 mcg/ac tuation aerosol inhaler RxNorm: 470814 2 Puff(s) INH Q4H as needed 01/20/2019 No Stop Date Active Tessalon Perles 100 mg capsule RxNorm: 739990 1 Capsule(s) PO TID a s needed for cough 01/20/2019 No Stop Date Active doxycycline hyclate 100 mg capsule RxNorm: 9934966 1 Capsule(s) PO BID 01/20/2019 01/19/2019 In active doxycycline hyclate 100 mg capsule RxNorm: 5355015 1 Capsule(s) PO BID 01/20/2019 01/26/2019 In active Coumadin 5 mg tablet RxNorm: 216261 1 Tablet(s) PO QD (on Fri, , Fri, , Fri and Fri) 01/05/2019 06/09/2019 Active Generic For:COUMADIN 5MG TAB 05/25/2018 3:20:45 PM N O T I C E Last quantity doesn't match original quantity amoxicillin 500 mg c apsule RxNorm: 545492 1 Capsule(s) PO BID 01/05/2019 01/14/2019 Inactive amoxicillin 500 mg c apsule RxNorm: 287995 1 Capsule(s) PO BID 01/05/2019 01/04/2019 Inactive hydrocodone 10 mg-ac etaminophen 325 mg tablet RxNorm: 684511 1 Tablet(s) PO Q4-6H as needed for pain 01/01/2019 01/31/2019 Inactive cyclobenzaprine 10 m g tablet RxNorm: 994891 1 TABLET(S) PO QD NEEDED 12/23/2018 06/20/2019 Ac tive Coumadin 5 mg tablet RxNorm: 728416 Tablet(s) TAKE 1 TABLET(S) BY MOUTH FRI, FRI, FRI, Friday12/23/2018 01/04/2019 Inactive Generic For:COUMADIN 5MG TA B 05/25/2018 3:20:45 PM N O T I C E Last quantity doesn't match original quantity Diflucan 150 mg tablet RxNorm: 469583 Tablet(s) TABLET(S) 1 TABLET(S) PO QW NEEDED 12/23/2018 01/27/2019 Inactive Vitamin D2 50,000 un it capsule RxNorm: 2577014 1 Capsule(s) PO QW 12/04/2018 03/03/2019 Active Medrol (Juan Francisco) 4 mg ta blets in a dose pack RxNorm: 171137 Tablet(s) PO as direc liane 12/04/2018 12/03/2018 In active Vitamin D2 50,000 un it capsule RxNorm: 4805461 1 Capsule(s) PO QW 12/04/2018 12/03/2018 Inactive Medrol (Juan Francisco) 4 mg ta blets in a dose pack RxNorm: 872557 Tablet(s) PO as direc liane 12/04/2018 01/19/2019 In active Zithromax Z-Juan Francisco 250 mg tablet RxNorm: 959421 Tablet(s) PO take as directed 12/02/2018 No Stop Date Active Vistaril 25 mg capsule RxNorm: 810290 Capsule(s) 1 Capsule(s) PO TID as needed for anxiety 11/30/2018 02/27/2019 Active Coumadin 5 mg tablet RxNorm: 392865 Tablet(s) TAKE 1 TABLET(S) BY MOUTH FRI, FRI, FRI, Friday11/30/2018 12/22/2018 Inactive Generic For:COUMADIN 5MG TA B 05/25/2018 3:20:45 PM N O T I C E Last quantity doesn't match original quantity Diflucan 150 mg tablet RxNorm: 614505 Tablet(s) TABLET(S) 1 TABLET(S) PO QW NEEDED 11/26/2018 12/22/2018 Inactive cholestyramine (with sugar) 4 gram oral powder RxNorm: 312750 1 UNIT DOSE PO QD 11/24/2018 02/14/2019 In active acetazolamide 125 mg tablet RxNorm: 491880 1 Tablet(s) PO BID 11/24/2018 02/14/2019 Inactive cyclobenzaprine 10 m g tablet RxNorm: 562557 1 Tablet(s) PO QD as needed 11/17/2018 12/22/2018 In active hydrocodone 10 mg-ac etaminophen 325 mg tablet RxNorm: 559419 1 Tablet(s) PO Q4-6H as needed for pain 11/05/2018 01/31/2019 Inactive acetazolamide 125 mg tablet RxNorm: 098315 1 TABLET(S) PO BID 10/26/2018 11/23/2018 Inactive cholestyramine (with sugar) 4 gram oral powder RxNorm: 581008 1 UNIT DOSE PO QD 10/26/2018 11/23/2018 In active Coumadin 5 mg tablet RxNorm: 281745 TAKE 1 TABLET(S) BY MOUTH FRI, FRI, FRI, Friday10/26/2018 11/29/2018 Inactive Generic For:COUMADIN 5MG TAB 05/25/2018 3:20:45 PM N O T I C E Last quantity doesn't match original quantity Diflucan 150 mg tablet RxNorm: 023526 TABLET(S) 1 TABLET(S) PO QW NEEDED 10/26/2018 11/25/2018 In active hydrocodone 10 mg-ac etaminophen 325 mg tablet RxNorm: 766898 1 Tablet(s) PO Q4-6H as needed for pain 10/08/2018 11/04/2018 Inactive acetazolamide 125 mg tablet RxNorm: 447951 1 Tablet(s) PO BID 09/24/2018 10/23/2018 Inactive Coumadin 5 mg tablet RxNorm: 563800 TAKE 1 TABLET(S) BY MOUTH FRI, FRI, FRI, Friday09/24/2018 10/25/2018 Inactive Generic For:COUMADIN 5MG TAB 05/25/2018 3:20:45 PM N O T I C E Last quantity doesn't match original quantity Diflucan 150 mg tablet RxNorm: 833381 Tablet(s) 1 Tablet(s) PO QW as needed 09/24/2018 10/25/2018 In active cyclobenzaprine 10 m g tablet RxNorm: 194404 1 Tablet(s) PO QD as needed 09/24/2018 11/16/2018 In active Vistaril 25 mg capsule RxNorm: 023120 1 Capsule(s) PO TID as needed for anxiet y 09/24/2018 11/29/2018 In active cholestyramine (with sugar) 4 gram oral powder RxNorm: 489530 1 Unit Dose PO QD 09/24/2018 10/23/2018 In active Pyridium 200 mg tablet RxNorm: 7967573 1 Tablet(s) PO TID 09/10/2018 09/19/2018 Inactive Pyridium 200 mg tablet RxNorm: 1551152 1 Tablet(s) PO TID 09/10/2018 09/09/2018 Inactive hydrocodone 10 mg-ac etaminophen 325 mg tablet RxNorm: 471755 1 Tablet(s) PO Q4-6H as needed for pain 09/08/2018 10/07/2018 Inactive cefdinir 300 mg capsule RxNorm: 617306 1 Capsule(s) PO BID 09/08/2018 09/21/2018 Inactive hydrocodone 10 mg-ac etaminophen 325 mg tablet RxNorm: 730715 1 Tablet(s) PO Q4-6H as needed for pain 08/13/2018 09/07/2018 Inactive cyclobenzaprine 10 m g tablet RxNorm: 609366 1 Tablet(s) PO QD as needed 07/23/2018 09/23/2018 In active Diflucan 150 mg tablet RxNorm: 798037 Tablet(s) 1 Tablet(s) PO QW as needed 07/23/2018 09/23/2018 In active Ciprodex 0.3 %-0.1 % ear drops,suspension RxNorm: 179231 4 Drop(s) left otic ( ear) BID 07/23/2018 07/29/2018 Inactive hydrocodone 10 mg-ac etaminophen 325 mg tablet RxNorm: 118561 1 Tablet(s) PO Q4-6H as needed for pain 07/16/2018 08/12/2018 Inactive penicillin V potassi um 500 mg tablet RxNorm: 522300 1 Tablet(s) PO Q6H 07/08/2018 07/17/2018 In active cyclobenzaprine 10 m g tablet RxNorm: 380085 1 Tablet(s) PO QD as needed 06/22/2018 07/22/2018 In active Vistaril 25 mg capsule RxNorm: 076052 1 Capsule(s) PO TID as needed for anxiet y 06/22/2018 09/23/2018 In active cholestyramine (with sugar) 4 gram oral powder RxNorm: 989593 1 Unit Dose PO QD 06/22/2018 09/23/2018 In active hydrocodone 10 mg-ac etaminophen 325 mg tablet RxNorm: 941803 1 Tablet(s) PO Q4-6H as needed for pain 06/17/2018 07/15/2018 Inactive cefdinir 300 mg capsule RxNorm: 198038 1 Capsule(s) PO BID 06/02/2018 06/11/2018 Inactive Diflucan 150 mg tablet RxNorm: 867758 Tablet(s) 1 Tablet(s) PO QW as needed 06/02/2018 07/22/2018 In active Coumadin 5 mg tablet RxNorm: 278183 TAKE 1 TABLET(S) BY MOUTH FRI, FRI, FRI, Friday05/25/2018 07/15/2018 Inactive Generic For:COUMADIN 5MG TAB 05/25/2018 3:20:45 PM N O T I C E Last quantity doesn't match original quantity Imitrex 50 mg tablet RxNorm: 942633 Tablet(s) 1 Tablet(s) PO at headache. re peat in 2 hours if no relief. no more than 2 tabs per day 05/19/2018 No Stop Date Active cholestyramine (with sugar) 4 gram oral powder RxNorm: 981534 1 Unit Dose PO QD 05/19/2018 11/14/2018 In active Vistaril 25 mg capsule RxNorm: 059083 1 Capsule(s) PO TID 05/19/2018 11/14/2018 Inactive Coumadin 5 mg tablet RxNorm: 690857 Tablet(s) TAKE 1 TABLET(S) BY MOUTH FRI, FRI, FRI, Friday05/19/2018 05/24/2018 Inactive Generic For:COUMADIN 5MG TA B N O T I C E Last quantity doesn't match original quantity acetazolamide 125 mg tablet RxNorm: 005419 1 Tablet(s) PO BID 05/19/2018 09/23/2018 Inactive cyclobenzaprine 10 m g tablet RxNorm: 311236 1 Tablet(s) PO QD as needed 05/19/2018 11/17/2018 In active Coumadin 7.5 mg tablet RxNorm: 654000 1 Tablet(s) PO QD , , 05/19/2018 01/04/2019 In active ketorolac 10 mg tablet RxNorm: 076548 1 Tablet(s) PO QHS as needed 05/11/2018 No Stop Date Active promethazine 12.5 mg tablet RxNorm: 066761 1 Tablet(s) PO Q6H as needed 04/23/2018 04/22/2018 In active acetazolamide 125 mg tablet RxNorm: 989624 1 Tablet(s) PO BID 04/23/2018 05/18/2018 Inactive Coumadin 5 mg tablet RxNorm: 585077 TAKE 1 TABLET(S) BY MOUTH FRI, FRI, FRI, Friday04/23/2018 05/18/2018 Inactive Generic For:COUMADIN 5MG TAB N O T I C E Last quantity doesn't match original quantity Imitrex 50 mg tablet RxNorm: 471909 1 Tablet(s) PO at headache. repeat in 2 hours if no relief. no more than 2 tabs per day 04/23/2018 05/18/2018 Inactive cyclobenzaprine 10 m g tablet RxNorm: 654361 1 Tablet(s) PO QD as needed 04/23/2018 05/18/2018 In active clindamycin HCl 300 mg capsule RxNorm: 268535 1 Capsule(s) PO TID 04/02/2018 04/11/2018 Inactive hydrocodone 10 mg-ac etaminophen 325 mg tablet RxNorm: 867177 1 Tablet(s) PO Q4-6H as needed for pain 03/24/2018 06/16/2018 Inactive promethazine 12.5 mg tablet RxNorm: 811549 1 Tablet(s) PO Q6H 03/23/2018 04/23/2018 Inactive Imitrex 50 mg tablet RxNorm: 150847 1 Tablet(s) PO at headache. repeat in 2 hours if no relief. no more than 2 tabs per day 03/23/2018 04/22/2018 Inactive Diflucan 150 mg tablet RxNorm: 453698 1 Tablet(s) PO QW as needed 03/23/2018 06/01/2018 Inactive Coumadin 5 mg tablet RxNorm: 466466 Tablet(s) 1 Tablet(s) PO Mon, Fri, Fri, Sun 03/23/2018 04/22/2018 In active Imitrex 100 mg tablet RxNorm: 676436 Tablet(s) PO take one tablet at sign of headache and repeat in 2 hours if ineffective 03/16/2018 04/01/2018 Inactive ondansetron HCl 4 mg tablet RxNorm: 919561 1 Tablet(s) PO Q4H as needed for nausea 02/24/2018 04/01/2018 In active hydrocodone 10 mg-ac etaminophen 325 mg tablet RxNorm: 027645 1 Tablet(s) PO Q4-6H as needed for pain 02/24/2018 03/23/2018 Inactive Coumadin 5 mg tablet RxNorm: 357351 Tablet(s) 1 Tablet(s) PO Mon, Wed, Fri, Sun 02/20/2018 03/22/2018 In active promethazine 12.5 mg tablet RxNorm: 448349 1 Tablet(s) PO Q6H 02/20/2018 03/22/2018 Inactive Pepcid 40 mg tablet RxNorm: 173332 1 Tablet(s) PO BID for stomach 02/16/2018 03/17/2018 In active Flagyl 500 mg tablet RxNorm: 923467 1 Tablet(s) PO TID 02/16/2018 02/25/2018 Inactive Imitrex 50 mg tablet RxNorm: 291912 1 Tablet(s) PO at headache. repeat in 2 hours if no relief. no more than 2 tabs per day 01/27/2018 03/15/2018 Inactive Coumadin 5 mg tablet RxNorm: 411155 1 Tablet(s) PO Mon, Wed, Fri, Sun 01/27/2018 02/20/2018 In active amoxicillin 875 mg t ablet RxNorm: 376876 1 Tablet(s) PO BID 01/26/2018 02/04/2018 Inactive Imitrex 50 mg tablet RxNorm: 210926 1 Tablet(s) PO at headache. repeat in 2 hours if no relief. no more than 2 tabs per day 01/26/2018 03/22/2018 Inactive cyclobenzaprine 10 m g tablet RxNorm: 502357 1 Tablet(s) PO QD as needed 01/23/2018 03/23/2018 In active promethazine 12.5 mg tablet RxNorm: 807331 1 Tablet(s) PO Q6H 01/23/2018 02/19/2018 Inactive Diflucan 150 mg tablet RxNorm: 934258 1 Tablet(s) PO QW as needed 01/22/2018 03/22/2018 Inactive acetazolamide 125 mg tablet RxNorm: 199109 1 Tablet(s) PO BID 01/22/2018 04/21/2018 Inactive Imitrex 50 mg tablet RxNorm: 889934 1 Tablet(s) PO at headache. repeat in 2 hours if no relief. no more than 2 tabs per day 01/02/2018 01/25/2018 Inactive Ciprodex 0.3 %-0.1 % ear drops,suspension RxNorm: 122593 4 Drop(s) otic (ear) BID 01/01/2018 01/07/2018 In active Coumadin 7.5 mg tablet RxNorm: 224292 1 Tablet(s) PO QD , Th, 12/29/2017 05/18/2018 In active Coumadin 5 mg tablet RxNorm: 761138 1 Tablet(s) PO Mon, Wed, Fri, Sun 12/29/2017 01/26/2018 In active cyclobenzaprine 10 m g tablet RxNorm: 992944 1 Tablet(s) PO QD as needed 12/29/2017 01/22/2018 In active clindamycin HCl 300 mg capsule RxNorm: 578787 1 Capsule(s) PO TID 12/26/2017 12/25/2017 Inactive Imitrex 50 mg tablet RxNorm: 537254 1 Tablet(s) PO at headache. repeat in 2 hours if no relief. no more than 2 tabs per day 12/26/2017 01/01/2018 Inactive clindamycin HCl 300 mg capsule RxNorm: 801554 1 Capsule(s) PO TID 12/26/2017 01/04/2018 Inactive Zithromax Z-Juan Francisco 250 mg tablet RxNorm: 785456 Tablet(s) PO take as directed 12/25/2017 12/25/2017 In active promethazine 12.5 mg tablet RxNorm: 710584 1 Tablet(s) PO Q6H 12/25/2017 01/22/2018 Inactive clindamycin HCl 300 mg capsule RxNorm: 416284 1 Capsule(s) PO TID 12/11/2017 12/17/2017 Inactive Vistaril 25 mg capsule RxNorm: 960105 1 Capsule(s) PO TID as needed for anxiet y 12/04/2017 05/18/2018 In active cholestyramine (with sugar) 4 gram oral powder RxNorm: 946381 1 Unit Dose PO QD 12/04/2017 05/18/2018 In active Coumadin 7.5 mg tablet RxNorm: 371438 1 Tablet(s) PO QD 12/04/2017 12/28/2017 Inactive Coumadin 5 mg tablet RxNorm: 478064 1 Tablet(s) PO Friday through Friday12/04/2017 12/28/2017 In active hydrocodone 10 mg-ac etaminophen 325 mg tablet RxNorm: 253118 1 Tablet(s) PO Q4-6H as needed for pain 12/01/2017 02/23/2018 Inactive hydrocodone 10 mg-ac etaminophen 325 mg tablet RxNorm: 370581 1 Tablet(s) PO Q4-6H as needed for pain 11/03/2017 11/30/2017 Inactive cyclobenzaprine 10 m g tablet RxNorm: 875419 1 Tablet(s) PO QD as needed 10/30/2017 12/28/2017 In active cholestyramine (with sugar) 4 gram oral powder RxNorm: 105098 1 Unit Dose PO QD 10/30/2017 11/28/2017 In active amoxicillin 875 mg t ablet RxNorm: 981531 1 Tablet(s) PO BID 10/08/2017 10/07/2017 Inactive amoxicillin 875 mg t ablet RxNorm: 662299 1 Tablet(s) PO BID 10/08/2017 10/17/2017 Inactive penicillin V potassi um 500 mg tablet RxNorm: 465652 1 Tablet(s) PO BID 10/06/2017 10/07/2017 In active hydrocodone 10 mg-ac etaminophen 325 mg tablet RxNorm: 734484 1 Tablet(s) PO Q4-6H as needed for pain 10/06/2017 11/02/2017 Inactive hydrocodone 10 mg-ac etaminophen 325 mg tablet RxNorm: 193113 1 Tablet(s) PO Q4-6H as needed for pain 10/06/2017 12/31/2018 Inactive Vigamox 0.5 % eye drops RxNorm: 009176 1 Drop(s) ophthalmic (eye) TID ONLY ADMI NISTER IF INFECTION 10/03/2017 10/02/2017 Inactive Vigamox 0.5 % eye drops RxNorm: 366069 1 Drop(s) ophthalmic (eye) TID ONLY ADMI NISTER IF INFECTION 10/03/2017 10/09/2017 Inactive cholestyramine (with sugar) 4 gram oral powder RxNorm: 063448 1 Unit Dose PO QD 09/23/2017 10/30/2017 In active acetazolamide 125 mg tablet RxNorm: 113293 1 Tablet(s) PO BID 09/23/2017 12/21/2017 Inactive Coumadin 5 mg tablet RxNorm: 060874 1 Tablet(s) PO QD FRIDAY THROUGH Friday09/17/2017 11/04/2017 In active mupirocin 2 % topica l ointment RxNorm: 483023 1 Application TOP TID 09/10/2017 11/04/2017 Inactive hydrocodone 10 mg-ac etaminophen 325 mg tablet RxNorm: 843410 1 Tablet(s) PO Q4-6H as needed for pain 09/08/2017 10/05/2017 Inactive Questran 4 gram powd er for susp in a packet RxNorm: 269346 MIX ONE PACKET IN 6 O UNCES OF APPLE SAUCE OR OTHER SOFT FOOD AND EAT ONCE DAILY 09/02/2017 11/04/2017 Inactive Diflucan 150 mg tablet RxNorm: 863870 1 Tablet(s) PO QW as needed 08/14/2017 01/21/2018 Inactive hydrocodone 10 mg-ac etaminophen 325 mg tablet RxNorm: 891807 1 Tablet(s) PO Q4-6H as needed for pain 08/11/2017 09/07/2017 Inactive Tamiflu 75 mg capsule RxNorm: 331451 1 Capsule(s) PO QD 08/11/2017 08/10/2017 Inactive Tamiflu 75 mg capsule RxNorm: 443655 1 Capsule(s) PO QD 08/11/2017 08/20/2017 Inactive Coumadin 5 mg tablet RxNorm: 669598 1 Tablet(s) PO QD FRIDAY THROUGH Friday07/22/2017 09/16/2017 In active Coumadin 5 mg tablet RxNorm: 304077 TAKE ONE TABLET BY MOUTH ONCE DAILY THROUGH Friday07/16/2017 07/21/2017 Inactive cyclobenzaprine 10 m g tablet RxNorm: 715392 1 Tablet(s) PO QD as needed 07/15/2017 10/30/2017 In active hydrocodone 10 mg-ac etaminophen 325 mg tablet RxNorm: 294768 1 Tablet(s) PO Q4-6H as needed for pain 07/14/2017 08/10/2017 Inactive warfarin 5 mg tablet RxNorm: 439440 1 Tablet(s) PO Fri Slick ford is due for PT/INR 06/18/2017 07/15/2017 Inactive Questran Light 4 gra m powder for susp in a packet RxNorm: 5005847 1 PO QD 06/18/2017 11/04/2017 In active cyclobenzaprine 10 m g tablet RxNorm: 455238 1 Tablet(s) PO QD as needed 06/18/2017 07/14/2017 In active hydrocodone 10 mg-ac etaminophen 325 mg tablet RxNorm: 541229 1 Tablet(s) PO Q4-6H as needed for pain 06/18/2017 07/13/2017 Inactive Lunesta 1 mg tablet RxNorm: 716540 1 Tablet(s) PO QHS as needed 05/27/2017 06/25/2017 Inactive Zithromax Z-Juan Francisco 250 mg tablet RxNorm: 317587 1 Tablet(s) PO Take a s directed 05/27/2017 11/04/2017 In active ProAir HFA 90 mcg/ac tuation aerosol inhaler RxNorm: 469798 2 Puff(s) INH Q4H 05/27/2017 01/19/2019 In active ProAir HFA 90 mcg/ac tuation aerosol inhaler RxNorm: 501570 2 Puff(s) INH Q4H 05/27/2017 05/26/2017 In active promethazine 6.25 mg -codeine 10 mg/5 mL syrup RxNorm: 094900 5 Milliliter(s) PO Q4 H as needed 05/27/2017 11/04/2017 Inactive Diflucan 150 mg tablet RxNorm: 529499 1 Tablet(s) PO QW as needed 05/26/2017 05/25/2017 Inactive cyclobenzaprine 10 m g tablet RxNorm: 139913 1 Tablet(s) PO QD as needed 05/20/2017 06/18/2017 In active Lunesta 2 mg tablet RxNorm: 820421 1 Tablet(s) PO QHS 05/20/2017 05/27/2017 Inactive Zithromax Z-Juan Francisco 250 mg tablet RxNorm: 989911 Tablet(s) PO As Direc liane 05/12/2017 05/19/2017 In active cyclobenzaprine 5 mg tablet RxNorm: 711047 1 Tablet(s) PO QPM 03/28/2017 05/19/2017 Inactive Vistaril 25 mg capsule RxNorm: 882772 1 Capsule(s) PO TID as needed for anxiet y 03/28/2017 09/23/2017 In active Questran 4 gram powd er for susp in a packet RxNorm: 252179 1 Unit(s) PO QD 03/06/2017 06/18/2017 In active Cipro 500 mg tablet RxNorm: 220744 1 Tablet(s) PO BID 02/27/2017 02/26/2017 Inactive Pyridium 200 mg tablet RxNorm: 0847386 1 Tablet(s) PO TID for bladder spasms 02/27/2017 03/31/2017 In active Cipro 500 mg tablet RxNorm: 072317 1 Tablet(s) PO BID 02/27/2017 03/05/2017 Inactive Levsin 0.125 mg tablet RxNorm: 7120090 1 Tablet(s) PO QID as needed for spasm 02/25/2017 11/04/2017 In active tamsulosin 0.4 mg ca psule RxNorm: 357250 1 Capsule(s) PO QPM 02/25/2017 03/26/2017 Inactive tamsulosin 0.4 mg ca psule RxNorm: 491078 1 Capsule(s) PO QPM 02/25/2017 02/24/2017 Inactive Pyridium 100 mg tablet RxNorm: 3163090 1 Tablet(s) PO TID as needed 02/21/2017 03/31/2017 In active acetazolamide 125 mg tablet RxNorm: 590041 1 Tablet(s) PO BID 02/07/2017 09/23/2017 Inactive Questran 4 gram powd er for susp in a packet RxNorm: 545236 1 Unit(s) PO QD 02/06/2017 03/06/2017 In active cyclobenzaprine 5 mg tablet RxNorm: 626759 1 Tablet(s) PO QPM 02/05/2017 03/27/2017 Inactive BuSpar 5 mg tablet RxNorm: 218226 1 Tablet(s) PO BID 02/03/2017 03/31/2017 Inactive Diflucan 150 mg tablet RxNorm: 403919 1 Tablet(s) PO QW as needed 01/15/2017 05/26/2017 Inactive Valtrex 1 gram tablet RxNorm: 684227 1 Tablet(s) PO TID 01/13/2017 01/19/2017 Inactive Vistaril 25 mg capsule RxNorm: 447503 1 Capsule(s) PO TID as needed for anxiet y 01/13/2017 03/27/2017 In active hydrocodone 10 mg-ac etaminophen 325 mg tablet RxNorm: 178591 1 Tablet(s) PO Q4-6H as needed for pain 01/13/2017 06/17/2017 Inactive Questran 4 gram powd er for susp in a packet RxNorm: 176842 1 Unit(s) PO QD 01/13/2017 09/23/2017 In active acetazolamide 125 mg tablet RxNorm: 119143 1 Tablet(s) PO BID 01/13/2017 02/06/2017 Inactive methotrexate (PF) 20 mg/0.4 mL subcutaneous auto-injector RxNorm: 5332888 Milliliter(s) SQ QW 12/26/2016 01/05/2017 Inactive Compazine 10 mg tablet RxNorm: 078175 1 Tablet(s) PO TID as needed for nausea 12/18/2016 11/04/2017 In active hydrocodone 10 mg-ac etaminophen 325 mg tablet RxNorm: 948897 1 Tablet(s) PO Q4-6H as needed for pain 12/17/2016 01/12/2017 Inactive Questran 4 gram powd er for susp in a packet RxNorm: 259193 1 Unit(s) PO QD 12/17/2016 01/13/2017 In active cyclobenzaprine 5 mg tablet RxNorm: 514158 1 Tablet(s) PO QPM 12/17/2016 02/05/2017 Inactive Questran Light 4 gra m powder for susp in a packet RxNorm: 6744976 1 PO QD 11/29/2016 06/17/2017 In active Zofran ODT 4 mg disi ntegrating tablet RxNorm: 969262 1 Tablet(s) PO Q4H as needed for nausea 11/29/2016 12/17/2016 Inactive methotrexate sodium 2.5 mg tablet RxNorm: 313275 4 Tablet(s) PO week 1 then 5 tablets po week 2 then 6 tablets weekly 11/27/2016 12/25/2016 Inactive warfarin 7.5 mg tablet RxNorm: 176942 1 Tablet(s) PO three times weekly 11/14/2016 03/31/2017 In active warfarin 7.5 mg tablet RxNorm: 420988 1 Tablet(s) PO three times weekly 11/13/2016 11/13/2016 In active Diflucan 150 mg tablet RxNorm: 367797 1 Tablet(s) PO QW as needed 11/05/2016 01/14/2017 Inactive Vistaril 25 mg capsule RxNorm: 332691 1 Capsule(s) PO TID as needed for anxiet y 11/04/2016 11/03/2016 In active Coumadin 5 mg tablet RxNorm: 823582 1 Tablet(s) PO Friday through Friday11/04/2016 06/18/2017 In active acetazolamide 125 mg tablet RxNorm: 601139 1 Tablet(s) PO BID 11/04/2016 01/13/2017 Inactive sumatriptan 100 mg t ablet RxNorm: 731181 1 Tablet(s) PO at hea dache onset. May repeat in 2 hours if headache remains 11/04/2016 11/04/2017 Inactive Vistaril 25 mg capsule RxNorm: 434835 1 Capsule(s) PO TID as needed for anxiet y 11/04/2016 01/12/2017 In active hydrocodone 10 mg-ac etaminophen 325 mg tablet RxNorm: 378987 1 Tablet(s) PO Q4-6H as needed for pain 11/04/2016 12/16/2016 Inactive Coumadin 5 mg tablet RxNorm: 254407 TAKE ONE TABLET BY MOUTH ON SUN., MON., WED., AND FRI., AND TAKE ONE AND ONE-HALF TABLETS TUE., TH., AND 10/16/2016 10/25/2016 In active Coumadin 5 mg tablet RxNorm: 498345 1 Tablet(s) PO Friday through Friday10/15/2016 11/03/2016 In active hydrocodone 10 mg-ac etaminophen 325 mg tablet RxNorm: 064157 1 Tablet(s) PO Q4-6H as needed for pain 10/14/2016 11/03/2016 Inactive hydrocodone 10 mg-ac etaminophen 325 mg tablet RxNorm: 346833 1 Tablet(s) PO Q4-6H as needed for pain 09/20/2016 10/13/2016 Inactive warfarin 7.5 mg tablet RxNorm: 717792 1 Tablet(s) PO three times weekly 09/20/2016 11/12/2016 In active Diflucan 150 mg tablet RxNorm: 798058 1 Tablet(s) PO QW as needed 08/20/2016 11/04/2016 Inactive acetazolamide 125 mg tablet RxNorm: 980480 1 Tablet(s) PO BID 08/20/2016 11/04/2016 Inactive Diflucan 150 mg tablet RxNorm: 738981 1 Tablet(s) PO QW as needed 08/20/2016 08/19/2016 Inactive Vistaril 25 mg capsule RxNorm: 435155 Capsule(s) TAKE ONE CAPSULE BY MOUTH THR EE TIMES DAILY NEEDED FOR ANXIETY 08/19/2016 11/04/2016 Inactive hydrocodone 10 mg-ac etaminophen 325 mg tablet RxNorm: 630549 1 Tablet(s) PO Q4-6H as needed for pain 08/05/2016 09/19/2016 Inactive Diflucan 150 mg tablet RxNorm: 034961 1 Tablet(s) PO QW as needed 07/19/2016 08/19/2016 Inactive tizanidine 4 mg tablet RxNorm: 587592 1-2 Tablet(s) PO QHS as needed for muscl e spasm and sleep 06/03/2016 06/10/2016 Inactive Questran Light 4 gra m powder for susp in a packet RxNorm: 5200405 1 PO QD 05/14/2016 08/11/2016 In active Macrobid 100 mg capsule RxNorm: 297658 1 Capsule(s) PO BID 04/23/2016 05/02/2016 Inactive mupirocin 2 % topica l ointment RxNorm: 595842 Apply topically to af fected area 2-3 times daily 04/17/2016 07/07/2016 Inactive Vistaril 25 mg capsule RxNorm: 338277 TAKE ONE CAPSULE BY MOUTH THREE TIMES DA LOLI NEEDED FOR ANXIETY 04/17/2016 11/04/2016 Inactive Diflucan 150 mg tablet RxNorm: 504917 1 Tablet(s) PO QW as needed 04/16/2016 07/18/2016 Inactive cyclobenzaprine 5 mg tablet RxNorm: 693854 TAKE ONE TABLET BY [facility] ONCE DAILY IN THE EVENING 03/25/2016 12/17/2016 Inactive Pyridium 100 mg tablet RxNorm: 5875246 1 Tablet(s) PO TID as needed 03/20/2016 03/19/2016 In active Diflucan 150 mg tablet RxNorm: 992393 1 Tablet(s) PO QW as needed 03/20/2016 04/15/2016 Inactive Pyridium 100 mg tablet RxNorm: 7284771 1 Tablet(s) PO TID as needed 03/20/2016 08/26/2016 In active Diflucan 150 mg tablet RxNorm: 315645 1 Tablet(s) PO QW as needed 03/19/2016 03/19/2016 Inactive Coumadin 7.5 mg tablet RxNorm: 488238 1 Tablet(s) PO QD 03/14/2016 05/12/2016 Inactive acetazolamide 125 mg tablet RxNorm: 086314 1 Tablet(s) PO BID 02/28/2016 08/20/2016 Inactive Coumadin 5 mg tablet RxNorm: 730799 1 TABLET(S) PO QD THREE TIMES A WEEK AND 1 1/2 TAB (7.5MG) FOUR TIMES A WEEK 02/28/2016 03/13/2016 Inactive Questran Light 4 gra m powder for susp in a packet RxNorm: 8715256 1 PO QD 02/13/2016 05/12/2016 In active Diflucan 150 mg tablet RxNorm: 928391 1 Tablet(s) PO QW as needed 01/19/2016 03/11/2016 Inactive Diflucan 150 mg tablet RxNorm: 116101 1 Tablet(s) PO QW as needed 01/18/2016 01/18/2016 Inactive promethazine 25 mg t ablet RxNorm: 624010 1 Tablet(s) PO Q4H as needed for nausea 12/05/2015 12/17/2016 In active Imitrex 100 mg tablet RxNorm: 027696 1 Tablet(s) PO at headache onset and may repeat in 2 hours if needed 12/05/2015 03/31/2017 Inactive Diflucan 150 mg tablet RxNorm: 706649 1 Tablet(s) PO QW as needed 11/24/2015 01/17/2016 Inactive Diflucan 150 mg tablet RxNorm: 342181 1 Tablet(s) PO QW as needed 11/21/2015 11/23/2015 Inactive Coumadin 5 mg tablet RxNorm: 303102 1 Tablet(s) PO QD three times a week and 1 1/2 tab (7.5mg) four times a week 11/13/2015 02/01/2016 Inactive Questran Light 4 gra m powder for susp in a packet RxNorm: 976980 1 PO QD 11/13/2015 02/10/2016 In active acetazolamide 125 mg tablet RxNorm: 616515 1 Tablet(s) PO BID 11/13/2015 02/10/2016 Inactive amoxicillin 875 mg t ablet RxNorm: 548538 1 Tablet(s) PO BID 11/09/2015 11/18/2015 Inactive Coumadin 7.5 mg tablet RxNorm: 141433 1 Tablet(s) PO on and 10/26/2015 10/25/2015 In active Coumadin 7.5 mg tablet RxNorm: 304815 1 Tablet(s) PO on and 10/26/2015 11/12/2015 In active Coumadin 5 mg tablet RxNorm: 410477 1 Tablet(s) PO Friday, Friday, Friday and Friday. 1.5 tablets Friday, and Friday. 10/26/2015 10/25/2015 Inactive Coumadin 5 mg tablet RxNorm: 309405 1 Tablet(s) PO Friday, Friday, Friday , and Friday. Take 1 1/2 on Friday, and Friday10/26/2015 11/12/2015 Inactive Coumadin 7.5 mg tablet RxNorm: 204976 1 Tablet(s) PO on and 10/26/2015 10/26/2015 In active Coumadin 5 mg tablet RxNorm: 072509 1 Tablet(s) PO Friday, Friday, Friday and Friday. 1.5 tablets Friday, and Friday. 10/26/2015 02/14/2016 Inactive Vistaril 25 mg capsule RxNorm: 370842 1 Capsule(s) PO TID as needed for anxiet y 10/10/2015 04/06/2016 In active cyclobenzaprine 5 mg tablet RxNorm: 164344 1 Tablet(s) PO QPM 10/10/2015 03/24/2016 Inactive Vistaril 25 mg capsule RxNorm: 059957 1 Capsule(s) PO TID as needed for anxiet y 10/10/2015 10/09/2015 In active cyclobenzaprine 5 mg tablet RxNorm: 213820 1 Tablet(s) PO QPM 10/10/2015 10/09/2015 Inactive Coumadin 5 mg tablet RxNorm: 223483 1 Tablet(s) PO Friday, Friday, Friday and Friday. 1.5 tablets Friday, and Friday. 10/02/2015 10/01/2015 Inactive Coumadin 5 mg tablet RxNorm: 418449 1 Tablet(s) PO Friday, Friday, Friday and Friday. 1.5 tablets Friday, and Friday. 10/02/2015 10/25/2015 Inactive amoxicillin 500 mg t ablet RxNorm: 349727 1 Tablet(s) PO TID 10/02/2015 10/11/2015 Inactive hydrocodone 10 mg-ac etaminophen 325 mg tablet RxNorm: 880209 1 Tablet(s) PO Q4-6H as needed for pain 10/02/2015 08/04/2016 Inactive Diflucan 150 mg tablet RxNorm: 411112 1 Tablet(s) PO QW as needed 10/02/2015 10/01/2015 Inactive amoxicillin 500 mg t ablet RxNorm: 987228 1 Tablet(s) PO TID 10/02/2015 10/01/2015 Inactive Diflucan 150 mg tablet RxNorm: 125808 1 Tablet(s) PO QW as needed 10/02/2015 10/09/2015 Inactive Coumadin 5 mg tablet RxNorm: 143608 1 Tablet(s) PO Mon.,Wed.,Fri., Sat. and Sun. 09/14/2015 10/01/2015 Inactive acetazolamide 125 mg tablet RxNorm: 856965 1 Tablet(s) PO BID 09/14/2015 11/12/2015 Inactive hydrocodone 10 mg-ac etaminophen 325 mg tablet RxNorm: 109916 1 Tablet(s) PO Q4-6H as needed for pain 09/01/2015 10/01/2015 Inactive Vistaril 25 mg capsule RxNorm: 154623 1 Capsule(s) PO TID as needed for anxiet y 08/24/2015 09/22/2015 In active baclofen 10 mg tablet RxNorm: 219504 1/2 Tablet(s) PO QAM and 1 tablet at bed time 07/27/2015 10/09/2015 Inactive Vistaril 25 mg capsule RxNorm: 408945 1 Capsule(s) PO BID 07/24/2015 08/22/2015 Inactive Savella 12.5 mg (5)- 25 mg(8)-50mg(42) tablets in a dose pack RxNorm: 777893 Tablet(s) PO as directed 07/10/2015 07/26/2015 Inactive hydrocodone 10 mg-ac etaminophen 325 mg tablet RxNorm: 188900 1 Tablet(s) PO Q6H as needed for pain 06/29/2015 08/10/2015 Inactive Coumadin 7.5 mg tablet RxNorm: 437434 1 Tablet(s) PO on and 06/21/2015 10/25/2015 In active Vistaril 25 mg capsule RxNorm: 107840 1 Capsule(s) PO BID 06/20/2015 07/24/2015 Inactive Cymbalta 30 mg capsu le,delayed release RxNorm: 463948 1 Capsule(s) PO QD 06/08/2015 07/09/2015 In active Coumadin 5 mg tablet RxNorm: 158013 1 Tablet(s) PO Mon.,Wed.,Fri., Sat. and Sun. 06/08/2015 07/07/2015 Inactive Coumadin 5 mg tablet RxNorm: 504871 1 Tablet(s) PO Mon.,Wed.,Fri., Sat. and Sun. 05/24/2015 06/07/2015 Inactive Coumadin 7.5 mg tablet RxNorm: 991429 1 Tablet(s) PO on and 05/24/2015 06/20/2015 In active Coumadin 7.5 mg tablet RxNorm: 148920 1 Tablet(s) PO on Friday No Start Date Active Vitamin B12 1000mcg Tablet RxNorm: 1/2 Tablet(s) PO QD No Start Date Active Bystolic 10 mg tablet RxNorm: 184900 3 Tablet(s) PO QAM No Start Date Active Vitamin D3 5,000 uni t tablet RxNorm: 017550 1 Tablet(s) PO QD No Start Date Active Bystolic 5 mg tablet RxNorm: 052898 1 Tablet(s) PO NOON No Start Date Active sumatriptan 100 mg t ablet RxNorm: 209713 1 Tablet(s) PO at hea dache onset. May repeat in 2 hours if headache remains No Start Date 11/03/2016 Inactive warfarin 7.5 mg tablet RxNorm: 785418 1 Tablet(s) PO three times weekly No Start Date 09/19/2016 Inactive ondansetron HCl 4 mg tablet RxNorm: 596682 1 Tablet(s) PO Q4H as needed for nausea No Start Date 02/23/2018 Inactive Imitrex 100 mg tablet RxNorm: 021342 1 Tablet(s) PO at headache onset and may repeat in 2 hours if needed No Start Date 12/04/2015 Inactive Vitamin B12 1000mcg Tablet RxNorm: 1/2 Tablet(s) PO on Tues, T hurs, Sat and Sun and 1 tab all other days No Start Date 04/01/2018 Inactive baclofen 10 mg tablet RxNorm: 109564 1/2 Tablet(s) PO QAM and 1 tablet at bed time No Start Date 07/26/2015 Inactive tizanidine 4 mg tablet RxNorm: 399031 1-2 Tablet(s) PO QHS as needed for muscl e spasm and sleep No Start Date 06/02/2016 Inactive Flexeril 5 mg tablet RxNorm: 623078 1 Tablet(s) PO QD No Start Date 10/09/2015 Inactive methotrexate (PF) 20 mg/0.4 mL subcutaneous auto-injector RxNorm: 9685849 SQ QW No Start Date 12/25/2016 Inactive Bystolic 5 mg tablet RxNorm: 842127 1 Tablet(s) PO as needed No Start Date 03/15/2018 Inactive Questran Light 4 gra m powder for susp in a packet RxNorm: 389094 1 PO QD No Start Date 11/12/2015 Inactive Bystolic 10 mg tablet RxNorm: 229480 1 Tablet(s) PO QAM No Start Date 11/04/2017 Inactive warfarin 5 mg tablet RxNorm: 819926 1 Tablet(s) PO Fri Sat Sun No Start Date 06/17/2017 Inactive hydrocodone 10 mg-ac etaminophen 325 mg tablet RxNorm: 074470 1 Tablet(s) PO 4-6hou rs as needed for pain No Start Date 08/31/2015 Inactive cyclobenzaprine 5 mg tablet RxNorm: 969080 1 Tablet(s) PO QPM No Start Date 12/16/2016 Inactive Lovenox 100 mg/mL carmona bcutaneous syringe RxNorm: 417308 1 Milliliter(s) SQ QD No Start Date 06/07/2015 Inactive Levsin 0.125 mg tablet RxNorm: 0295941 1 Tablet(s) PO QID as needed for spasm No Start Date 02/24/2017 Inactive Savella 12.5 mg (5)- 25 mg(8)-50mg(42) tablets in a dose pack RxNorm: 296783 Tablet(s) PO as directed No Start Date 07/09/2015 Inactive Coumadin 10 mg tablet RxNorm: 312804 1 Tablet(s) PO QD No Start Date 2015 Inactive tramadol 50 mg tablet RxNorm: 038262 1 Tablet(s) PO TID as needed for pain No Start Date 03/31/2017 Inactive BuSpar 5 mg tablet RxNorm: 098674 1 Tablet(s) PO BID No Start Date 02/02/2017 Inactive Vistaril 25 mg capsule RxNorm: 296851 1 Capsule(s) PO BID No Start Date 06/19/2015 Inactive Tessalon Perles 100 mg capsule RxNorm: 707836 1 Capsule(s) PO TID a s needed for cough No Start Date 01/19/2019 Inactive promethazine 12.5 mg tablet RxNorm: 815764 1 Tablet(s) PO Q6H as needed No Start Date 04/22/2018 Inactive Coumadin 7.5 mg tablet RxNorm: 300979 1 Tablet(s) PO Sat and Friday No Start Date 03/13/2016 Inactive Imitrex 50 mg tablet RxNorm: 391978 1 Tablet(s) PO at headache. repeat in 2 hours if no relief. no more than 2 tabs per day No Start Date 12/25/2017 Inactive acetazolamide 125 mg tablet RxNorm: 790033 1 Tablet(s) PO BID No Start Date 09/13/2015 Inactive methotrexate (PF) 12 .5 mg/0.4 mL subcutaneous auto-injector RxNorm: 6267183 1 Milliliter(s) SQ QW No Start Date 03/31/2017 Inactive Bystolic 10 mg tablet RxNorm: 094205 1 Tablet(s) PO QAM No Start Date 03/25/2018 Inactive Zithromax Z-Juan Francisco 250 mg tablet RxNorm: 000690 Tablet(s) PO As Direc liane No Start Date 05/11/2017 Inactive Bystolic 20 mg tablet RxNorm: 819428 1 Tablet(s) PO QD No Start Date 03/15/2018 Inactive Questran 4 gram powd er for susp in a packet RxNorm: 369402 1 Unit(s) PO QD No Start Date 12/16/2016 Inactive Vitamin D3 1,000 uni t tablet RxNorm: 695152 1 Tablet(s) PO QD No Start Date 04/01/2018 Inactive Coumadin 5 mg tablet RxNorm: 973203 1 Tablet(s) PO Friday through Friday No Start Date 03/13/2016 Inactive warfarin 5 mg tablet RxNorm: 075789 1 Tablet(s) PO four days per week No Start Date 04/01/2018 Inactive ProAir HFA 90 mcg/ac tuation aerosol inhaler RxNorm: 293003 2 Puff(s) INH Q4H as needed No Start Date 01/19/2019 Inactive Bystolic 5 mg tablet RxNorm: 889329 1 Tablet(s) PO QHS No Start Date 03/25/2018 Inactive Compazine 10 mg tablet RxNorm: 489212 1 Tablet(s) PO TID as needed for nausea No Start Date 12/17/2016 Inactive Pyridium 200 mg tablet RxNorm: 6407914 1 Tablet(s) PO TID for bladder spasms No Start Date 02/26/2017 Inactive hydrocodone 10 mg-ac etaminophen 325 mg tablet RxNorm: 793094 1 Tablet(s) PO as nee ded No Start Date 06/28/2015 Inactive warfarin 7.5 mg tablet RxNorm: 405520 1 Tablet(s) PO on Friday and No Start Date 04/01/2018 Inactive promethazine 25 mg t ablet RxNorm: 334080 1 Tablet(s) PO Q4H as needed for nausea No Start Date 12/04/2015 Inactive Lovenox 30 mg/0.3 mL subcutaneous syringe RxNorm: 240722 1 Milliliter(s) SQ QD No Start Date [...] 01/19/2019 COUGH ICD-10: R05 ICD-9: 786.2 01/19/2019 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 ICD-10: Z79.01 ICD-9: [...] and perineal pain ICD-10: R10 .2 ICD-9: [id number] 02/10/2017 Hematuria, unspecified ICD-10: R31.9 ICD-9: 599.70 [...] Code Result Date ANTI STREPTOLYSIN O TITER(ASO) 90137 ASO Titr 110 IU/mL 9 MYCOPLASMA ANTIBODY, IFA [id number] Mycoplas Ab IgG 1:64 01/20/2019 MYCOPLASMA ANTIBODY, IFA [id number] Mycoplas Ab IgM <1:10 01/20/2019 MYCOPLASMA ANTIBODY, IFA [id number] Mycoplasma Intp See Below 01/20/2019 LEGIONELLA [id number] Reynaldo aviita Ab <1:128 01/20/2019 HEPATIC FUNCTION PANEL A 26756 Total Protein 6.3 g/dL 01/19/2019 HEPATIC FUNCTION PANEL A 68120 AST 16 U/L 01/19/2019 HEPATIC FUNCTION PANEL A 87509 ALK PHOS 52 U/L 01/19/2019 HEPATIC FUNCTION PANEL A 61426 Bili Total 0.2 mg/dL 01/19/2019 HEPATIC FUNCTION PANEL A 47333 ALT 20 U/L 01/19/2019 HEPATIC FUNCTION PANEL A 62145 ALBUMIN 4.3 g/dL 01/19/2019 HEPATIC FUNCTION PANEL A 51709 Bili Direct 0.1 mg/dL 01/19/2019 PT 2236721 PT 27.5 Seconds 01/19/2019 PT 1546312 INR 2.6 01/19/2019 COMPLETE BLOOD COUNT 5336001 WBC 11.1 10e9/L 01/19/2019 COMPLETE BLOOD COUNT 1214789 RBC 4.14 10e12/L 9 COMPLETE BLOOD COUNT 5253912 HEMOGLOBIN 13.9 g/dL 01/19/2019 COMPLETE BLOOD COUNT 8615421 HEMATOCRIT 40.7 % 01/19/2019 COMPLETE BLOOD COUNT 7195395 MCV 98.3 fL 01/19/2019 COMPLETE BLOOD COUNT 0021811 MCH 33.6 pg 01/19/2019 COMPLETE BLOOD COUNT 1660064 MCHC 34.2 g/dL 01/19/2019 COMPLETE BLOOD COUNT 9076890 PLATELET COUNT 334 10e9/L 01/19/2019 COMPLETE BLOOD COUNT 0460144 Mean Plt Volume 8.9 fL 01/19/2019 COMPLETE BLOOD COUNT 9966654 Neut Auto 60.2 % 01/19/2019 COMPLETE BLOOD COUNT 0076373 Lymph Auto 32.5 % 01/19/2019 COMPLETE BLOOD COUNT 2182119 [place] Auto 6.1 % 01/19/2019 COMPLETE BLOOD COUNT 7998645 RDW 12.5 % 01/19/2019 COMPLETE BLOOD COUNT 4893700 Eos Auto 1.0 % 01/19/2019 COMPLETE BLOOD COUNT 9307512 Baso Auto 0.2 % 01/19/2019 COMPLETE BLOOD COUNT 5622615 Neutrophil Abs 6.68 10e9/L 01/19/2019 COMPLETE BLOOD COUNT 2999456 Lymphocyte Abs 3.61 10e9/L 01/19/2019 COMPLETE BLOOD COUNT 9222719 Monocyte Abs 0.68 10e9/L 01/19/2019 COMPLETE BLOOD COUNT 5524848 Eosinophil Abs 0.11 10e9/L 01/19/2019 COMPLETE BLOOD COUNT 0440849 RDW-SD 43.4 fL 01/19/2019 COMPLETE BLOOD COUNT 4610085 Basophil Abs 0.02 10e9/L 01/19/2019 COMPLETE BLOOD COUNT 2866995 WBC 7.4 10e9/L 12/18/2018 COMPLETE BLOOD COUNT 2442678 RBC 4.32 10e12/L 9 COMPLETE BLOOD COUNT 8589113 HEMOGLOBIN 14.2 g/dL 12/18/2018 COMPLETE BLOOD COUNT 6881756 HEMATOCRIT 42.0 % 12/18/2018 COMPLETE BLOOD COUNT 0215492 MCV 97.2 fL 12/18/2018 COMPLETE BLOOD COUNT 0621054 MCH 32.9 pg 12/18/2018 COMPLETE BLOOD COUNT 8289868 MCHC 33.8 g/dL 12/18/2018 COMPLETE BLOOD COUNT 8018276 PLATELET COUNT 273 10e9/L 12/18/2018 COMPLETE BLOOD COUNT 5595364 Mean Plt Volume 9.4 fL 12/18/2018 COMPLETE BLOOD COUNT 4131068 Neut Auto 57.7 % 12/18/2018 COMPLETE BLOOD COUNT 2899816 Lymph Auto 34.8 % 12/18/2018 COMPLETE BLOOD COUNT 3493818 [place] Auto 6.4 % 12/18/2018 COMPLETE BLOOD COUNT 8254900 RDW 12.6 % 12/18/2018 COMPLETE BLOOD COUNT 3418336 Eos Auto 0.8 % 12/18/2018 COMPLETE BLOOD COUNT 4725100 Baso Auto 0.3 % 12/18/2018 COMPLETE BLOOD COUNT 6784219 Neutrophil Abs 4.27 10e9/L 12/18/2018 COMPLETE BLOOD COUNT 8022416 Lymphocyte Abs 2.58 10e9/L 12/18/2018 COMPLETE BLOOD COUNT 4684345 Monocyte Abs 0.47 10e9/L 12/18/2018 COMPLETE BLOOD COUNT 9248046 Eosinophil Abs 0.06 10e9/L 12/18/2018 COMPLETE BLOOD COUNT 5942891 RDW-SD 43.8 fL 12/18/2018 COMPLETE BLOOD COUNT 0870942 Basophil Abs 0.02 10e9/L 12/18/2018 GFR CALC 9517308 GFR Non Afr Amr >60 mL/min 12/18/2018 GFR CALC 1851238 GFR Afr Amr >60 mL/min 12/18/2018 COMPREHENSIVE METABOLIC 42136 AST 33 U/L 12/18/2018 COMPREHENSIVE METABOLIC 59581 ALT 60 U/L 12/18/2018 COMPREHENSIVE METABOLIC 24606 BUN 9 mg/dL 12/18/2018 COMPREHENSIVE METABOLIC 86992 ALBUMIN 4.3 g/dL 12/18/2018 COMPREHENSIVE METABOLIC 98660 CHLORIDE 104 mmol/L 12/18/2018 COMPREHENSIVE METABOLIC 16331 Bili Total 0.3 mg/dL 12/18/2018 COMPREHENSIVE METABOLIC 80236 ALK PHOS 63 U/L 12/18/2018 COMPREHENSIVE METABOLIC 92973 SODIUM 139 mmol/L 12/18/2018 COMPREHENSIVE METABOLIC 07121 CREATININE 0.55 mg/dL 12/18/2018 COMPREHENSIVE METABOLIC 79517 CALCIUM 9.0 mg/dL 12/18/2018 COMPREHENSIVE METABOLIC 43139 POTASSIUM 3.9 mmol/L 12/18/2018 COMPREHENSIVE METABOLIC 67814 Total Protein 6.4 g/dL 12/18/2018 COMPREHENSIVE METABOLIC 71969 Glucose 83 mg/dL 12/18/2018 COMPREHENSIVE METABOLIC 94045 Bicarbonate 27 mmol/L 12/18/2018 COMPREHENSIVE METABOLIC 67956 AGAP 8 mmol/L 12/18/2018 ERYTHROCYTE SEDIMENTATION RATE 32814 Sed Rate 17 mm/hr 12/04/2018 MEAN GLUC 3494988 Calc M zach Gluc 108 mg/dL 12/03/2018 VITAMIN B 12 60000 VITAM IN B12 329 pg/mL 12/03/2018 COMPREHENSIVE METABOLIC 91627 AST 18 U/L 12/03/2018 COMPREHENSIVE METABOLIC 27977 ALT 21 U/L 12/03/2018 COMPREHENSIVE METABOLIC 22645 BUN 11 mg/dL 12/03/2018 COMPREHENSIVE METABOLIC 71617 ALBUMIN 4.5 g/dL 12/03/2018 COMPREHENSIVE METABOLIC 08652 CHLORIDE 106 mmol/L 12/03/2018 COMPREHENSIVE METABOLIC 28824 Bili Total 0.4 mg/dL 12/03/2018 COMPREHENSIVE METABOLIC 30255 ALK PHOS 49 U/L 12/03/2018 COMPREHENSIVE METABOLIC 14783 SODIUM 138 mmol/L 12/03/2018 COMPREHENSIVE METABOLIC 45519 CREATININE 0.61 mg/dL 12/03/2018 COMPREHENSIVE METABOLIC 29782 CALCIUM 9.2 mg/dL 12/03/2018 COMPREHENSIVE METABOLIC 73684 POTASSIUM 3.7 mmol/L 12/03/2018 COMPREHENSIVE METABOLIC 56491 Total Protein 6.8 g/dL 12/03/2018 COMPREHENSIVE METABOLIC 62608 Glucose 94 mg/dL 12/03/2018 COMPREHENSIVE METABOLIC 05078 Bicarbonate 25 mmol/L 12/03/2018 COMPREHENSIVE METABOLIC 89142 AGAP 7 mmol/L 12/03/2018 FREE T4 09306 T4 Free 0.96 ng/dL 12/03/2018 ASSAY TRIIODOTHYRONINE (T3) 80963 T3 Total 1.02 ng/mL 12/03/2018 GFR CALC 9931945 GFR Non Afr Amr >60 mL/min 12/03/2018 GFR CALC 0938157 GFR Afr Amr >60 mL/min 12/03/2018 GLYCOSYLATED HEMOGLOBIN TEST 43780 Hgb A1c 57035-5 5.4 % 12/03/2018 VITAMIN D TOTAL (25 HYDROXY) 06303 Vitamin D 25 OH 11.1 ng/mL 12/03/2018 IRON 90944 Iron 106 ug/dL 12/03/2018 THYROID STIMULATING HORMONE 22262 TSH 0.978 uIU/mL 9 COMPLETE BLOOD COUNT 0784294 WBC 9.4 10e9/L 12/03/2018 COMPLETE BLOOD COUNT 0869988 RBC 4.41 10e12/L 9 COMPLETE BLOOD COUNT 0014832 HEMOGLOBIN 14.5 g/dL 12/03/2018 COMPLETE BLOOD COUNT 3344449 HEMATOCRIT 43.0 % 12/03/2018 COMPLETE BLOOD COUNT 5892960 MCV 97.5 fL 12/03/2018 COMPLETE BLOOD COUNT 1434873 MCH 32.9 pg 12/03/2018 COMPLETE BLOOD COUNT 9801258 MCHC 33.7 g/dL 12/03/2018 COMPLETE BLOOD COUNT 5730099 PLATELET COUNT 336 10e9/L 12/03/2018 COMPLETE BLOOD COUNT 4398674 Mean Plt Volume 9.1 fL 12/03/2018 COMPLETE BLOOD COUNT 0651732 Neut Auto 56.4 % 12/03/2018 COMPLETE BLOOD COUNT 7826872 Lymph Auto 35.6 % 12/03/2018 COMPLETE BLOOD COUNT 0909072 [place] Auto 6.8 % 12/03/2018 COMPLETE BLOOD COUNT 6105170 RDW 12.6 % 12/03/2018 COMPLETE BLOOD COUNT 9531510 Eos Auto 1.0 % 12/03/2018 COMPLETE BLOOD COUNT 8112269 Baso Auto 0.2 % 12/03/2018 COMPLETE BLOOD COUNT 8579230 Neutrophil Abs 5.30 10e9/L 12/03/2018 COMPLETE BLOOD COUNT 0964216 Lymphocyte Abs 3.35 10e9/L 12/03/2018 COMPLETE BLOOD COUNT 5774756 Monocyte Abs 0.64 10e9/L 12/03/2018 COMPLETE BLOOD COUNT 2355009 Eosinophil Abs 0.09 10e9/L 12/03/2018 COMPLETE BLOOD COUNT 0989621 RDW-SD 44.3 fL 12/03/2018 COMPLETE BLOOD COUNT 4822741 Basophil Abs 0.02 10e9/L 12/03/2018 FERRITIN 27936 FERRITIN 87.8 ng/mL 12/03/2018 PT 3090876 PT 23.1 Seconds 11/30/2018 PT 1696090 INR 2.0 11/30/2018 ANTI STREPTOLYSIN O TITER(ASO) 25995 ASO Titr 117 IU/mL 9 COMPLETE BLOOD COUNT 5438068 WBC 10.7 10e9/L 11/11/2018 COMPLETE BLOOD COUNT 9309112 RBC 4.42 10e12/L 9 COMPLETE BLOOD COUNT 7285630 HEMOGLOBIN 14.5 g/dL 11/11/2018 COMPLETE BLOOD COUNT 2762742 HEMATOCRIT 43.1 % 11/11/2018 COMPLETE BLOOD COUNT 0647162 MCV 97.5 fL 11/11/2018 COMPLETE BLOOD COUNT 0751145 MCH 32.8 pg 11/11/2018 COMPLETE BLOOD COUNT 0032927 MCHC 33.6 g/dL 11/11/2018 COMPLETE BLOOD COUNT 7522984 PLATELET COUNT 324 10e9/L 11/11/2018 COMPLETE BLOOD COUNT 3834286 Mean Plt Volume 9.2 fL 11/11/2018 COMPLETE BLOOD COUNT 8860777 Neut Auto 62.3 % 11/11/2018 COMPLETE BLOOD COUNT 2866849 Lymph Auto 30.8 % 11/11/2018 COMPLETE BLOOD COUNT 4423046 [place] Auto 6.1 % 11/11/2018 COMPLETE BLOOD COUNT 9832749 RDW 12.7 % 11/11/2018 COMPLETE BLOOD COUNT 8943464 Eos Auto 0.7 % 11/11/2018 COMPLETE BLOOD COUNT 1205321 Baso Auto 0.1 % 11/11/2018 COMPLETE BLOOD COUNT 8701468 Neutrophil Abs 6.67 10e9/L 11/11/2018 COMPLETE BLOOD COUNT 4787874 Lymphocyte Abs 3.30 10e9/L 11/11/2018 COMPLETE BLOOD COUNT 3428247 Monocyte Abs 0.65 10e9/L 11/11/2018 COMPLETE BLOOD COUNT 7256729 Eosinophil Abs 0.07 10e9/L 11/11/2018 COMPLETE BLOOD COUNT 9401477 RDW-SD 44.3 fL 11/11/2018 COMPLETE BLOOD COUNT 2355487 Basophil Abs 0.01 10e9/L 11/11/2018 PT 7627957 PT 23.4 Seconds 10/27/2018 PT 1396501 INR 2.0 10/27/2018 COMPLETE BLOOD COUNT 8229046 WBC 8.1 10e9/L 09/25/2018 COMPLETE BLOOD COUNT 7403787 RBC 4.37 10e12/L 9 COMPLETE BLOOD COUNT 1228960 HEMOGLOBIN 14.5 g/dL 09/25/2018 COMPLETE BLOOD COUNT 8015603 HEMATOCRIT 42.1 % 09/25/2018 COMPLETE BLOOD COUNT 3193227 MCV 96.3 fL 09/25/2018 COMPLETE BLOOD COUNT 1864601 MCH 33.2 pg 09/25/2018 COMPLETE BLOOD COUNT 2101713 MCHC 34.4 g/dL 09/25/2018 COMPLETE BLOOD COUNT 4965646 PLATELET COUNT 313 10e9/L 09/25/2018 COMPLETE BLOOD COUNT 8293658 Mean Plt Volume 9.2 fL 09/25/2018 COMPLETE BLOOD COUNT 5264732 Neut Auto 57.4 % 09/25/2018 COMPLETE BLOOD COUNT 6096536 Lymph Auto 35.0 % 09/25/2018 COMPLETE BLOOD COUNT 1622349 [place] Auto 6.3 % 09/25/2018 COMPLETE BLOOD COUNT 1196603 RDW 12.6 % 09/25/2018 COMPLETE BLOOD COUNT 8998398 Eos Auto 1.1 % 09/25/2018 COMPLETE BLOOD COUNT 7899822 Baso Auto 0.2 % 09/25/2018 COMPLETE BLOOD COUNT 7475303 Neutrophil Abs 4.65 10e9/L 09/25/2018 COMPLETE BLOOD COUNT 4910235 Lymphocyte Abs 2.84 10e9/L 09/25/2018 COMPLETE BLOOD COUNT 1067096 Monocyte Abs 0.51 10e9/L 09/25/2018 COMPLETE BLOOD COUNT 6707772 Eosinophil Abs 0.09 10e9/L 09/25/2018 COMPLETE BLOOD COUNT 9939523 RDW-SD 43.0 fL 09/25/2018 COMPLETE BLOOD COUNT 7596510 Basophil Abs 0.02 10e9/L 09/25/2018 COMPREHENSIVE METABOLIC 49434 AST 15 U/L 09/25/2018 COMPREHENSIVE METABOLIC 88923 ALT 20 U/L 09/25/2018 COMPREHENSIVE METABOLIC 54000 BUN 9 mg/dL 09/25/2018 COMPREHENSIVE METABOLIC 74589 ALBUMIN 4.3 g/dL 09/25/2018 COMPREHENSIVE METABOLIC 05872 CHLORIDE 107 mmol/L 09/25/2018 COMPREHENSIVE METABOLIC 11882 Bili Total 0.4 mg/dL 09/25/2018 COMPREHENSIVE METABOLIC 66122 ALK PHOS 51 U/L 09/25/2018 COMPREHENSIVE METABOLIC 67037 SODIUM 139 mmol/L 09/25/2018 COMPREHENSIVE METABOLIC 32074 CREATININE 0.61 mg/dL 09/25/2018 COMPREHENSIVE METABOLIC 11475 CALCIUM 9.1 mg/dL 09/25/2018 COMPREHENSIVE METABOLIC 14206 POTASSIUM 3.7 mmol/L 09/25/2018 COMPREHENSIVE METABOLIC 93986 Total Protein 6.3 g/dL 09/25/2018 COMPREHENSIVE METABOLIC 66968 Glucose 92 mg/dL 09/25/2018 COMPREHENSIVE METABOLIC 22963 Bicarbonate 24 mmol/L 09/25/2018 COMPREHENSIVE METABOLIC 39830 AGAP 8 mmol/L 09/25/2018 PT [id number] PT 25.0 Seconds 09/25/2018 PT [id number] INR 2.2 09/25/2018 GFR CALC 0050179 GFR Non Afr Amr >60 mL/min 09/25/2018 GFR CALC [id number] GFR Afr Amr >60 mL/min 09/25/2018 PT 2910210 PT 25.7 Seconds 05/12/2018 PT [id number] INR 2.3 05/12/2018 PT 8678389 PT TNP:Improper Specimen 04/30/2018 PT [id number] INR TNP:Improper Specimen 04/30/2018 PT [id number] PT 26.3 Seconds 02/05/2018 PT [id number] INR 2.4 02/05/2018 ANTI STREPTOLYSIN O TITER(ASO) 33168 ASO Titr 118 IU/mL 8 VITAMIN B 12 95430 VITAM IN B12 302 pg/mL 12/02/2017 VITAMIN D TOTAL (25 HYDROXY) 72565 Vitamin D 25 OH 27.0 ng/mL 12/02/2017 PT 1443629 PT 17.3 Seconds 12/01/2017 PT 5147217 INR 1.4 12/01/2017 ANTI STREPTOLYSIN O TITER(ASO) 51111 ASO Titr 127 IU/mL 8 ANTI STREPTOLYSIN O TITER(ASO) 97231 ASO Titr 130 IU/mL 8 ANTINUCLEAR ANTIBODY SCREEN 28617 MAGALIE Ab Scr <1:80 10/02/2017 RA FACTOR 97171 RA FACTOR <20 IU/mL 10/02/2017 RA FACTOR 39104 RA Facto r Intp Negative 10/02/2017 VITAMIN D TOTAL (25 HYDROXY) 06455 Vitamin D 25 OH 18 ng/mL 8 IRON 23891 Iron 70 ug/dL 10/01/2017 VITAMIN B 12 82269 VITAM IN B12 377 pg/mL 10/01/2017 FREE T4 08925 T4 Free 1.31 ng/dL 10/01/2017 URIC ACID 49464 URIC ACID 3.9 mg/dL 10/01/2017 FERRITIN 03937 FERRITIN 68.0 ng/mL 10/01/2017 THYROID STIMULATING HORMONE 78338 TSH 1.401 uIU/mL 8 GLYCOSYLATED HEMOGLOBIN TEST 57806 Hgb A1c 12374-3 5.4 % 10/01/2017 FOLIC ACID 86074 Folate >24.0 ng/mL 10/01/2017 ASSAY TRIIODOTHYRONINE (T3) 52565 T3 Total 1.0 ng/mL 10/01/2017 ERYTHROCYTE SEDIMENTATION RATE 57056 Sed Rate 5 mm/hr 10/01/2017 MEAN GLUC 3356305 Calc M zach Gluc 108 mg/dL 10/01/2017 PT 6303532 PT 18.6 Seconds 08/07/2017 PT 2640394 INR 1.5 08/07/2017 COMPREHENSIVE METABOLIC 19648 AST 21 U/L 08/07/2017 COMPREHENSIVE METABOLIC 09730 ALT 37 U/L 08/07/2017 COMPREHENSIVE METABOLIC 00212 BUN 14 mg/dL 08/07/2017 COMPREHENSIVE METABOLIC 87486 ALBUMIN 4.5 g/dL 08/07/2017 COMPREHENSIVE METABOLIC 10747 CHLORIDE 104 mmol/L 08/07/2017 COMPREHENSIVE METABOLIC 53076 Bili Total 0.3 mg/dL 08/07/2017 COMPREHENSIVE METABOLIC 67577 ALK PHOS 55 U/L 08/07/2017 COMPREHENSIVE METABOLIC 34670 SODIUM 139 mmol/L 08/07/2017 COMPREHENSIVE METABOLIC 26307 CREATININE 0.77 mg/dL 08/07/2017 COMPREHENSIVE METABOLIC 02633 CALCIUM 9.2 mg/dL 08/07/2017 COMPREHENSIVE METABOLIC 49963 POTASSIUM 3.7 mmol/L 08/07/2017 COMPREHENSIVE METABOLIC 90374 Total Protein 6.5 g/dL 08/07/2017 COMPREHENSIVE METABOLIC 09049 Glucose 101 mg/dL 08/07/2017 COMPREHENSIVE METABOLIC 91427 Bicarbonate 25 mmol/L 08/07/2017 COMPREHENSIVE METABOLIC 94127 AGAP 10 mmol/L 08/07/2017 COMPLETE BLOOD COUNT 4732783 WBC 9.4 10e9/L 08/07/2017 COMPLETE BLOOD COUNT 8808885 RBC 4.38 10e12/L 8 COMPLETE BLOOD COUNT 4900291 HEMOGLOBIN 14.5 g/dL 08/07/2017 COMPLETE BLOOD COUNT 9534942 HEMATOCRIT 42.7 % 08/07/2017 COMPLETE BLOOD COUNT 4776811 MCV 97.5 fL 08/07/2017 COMPLETE BLOOD COUNT 4586165 MCH 33.1 pg 08/07/2017 COMPLETE BLOOD COUNT 9939765 MCHC 34.0 g/dL 08/07/2017 COMPLETE BLOOD COUNT 6460068 PLATELET COUNT 313 10e9/L 08/07/2017 COMPLETE BLOOD COUNT 3888935 Mean Plt Volume 8.6 fL 08/07/2017 COMPLETE BLOOD COUNT 4099221 Neut Auto 51.6 % 08/07/2017 COMPLETE BLOOD COUNT 4275821 Lymph Auto 40.0 % 08/07/2017 COMPLETE BLOOD COUNT 4358851 [place] Auto 6.8 % 08/07/2017 COMPLETE BLOOD COUNT 5995484 RDW 12.9 % 08/07/2017 COMPLETE BLOOD COUNT 5763005 Eos Auto 1.4 % 08/07/2017 COMPLETE BLOOD COUNT 0127813 Baso Auto 0.2 % 08/07/2017 COMPLETE BLOOD COUNT 9581079 Neutrophil Abs 4.85 10e9/L 08/07/2017 COMPLETE BLOOD COUNT 2904217 Lymphocyte Abs 3.76 10e9/L 08/07/2017 COMPLETE BLOOD COUNT 8671500 Monocyte Abs 0.64 10e9/L 08/07/2017 COMPLETE BLOOD COUNT 5063346 Eosinophil Abs 0.13 10e9/L 08/07/2017 COMPLETE BLOOD COUNT 0961473 RDW-SD 45.1 fL 08/07/2017 COMPLETE BLOOD COUNT 4670519 Basophil Abs 0.02 10e9/L 08/07/2017 GFR CALC 5522242 GFR Non Afr Amr >60 mL/min 08/07/2017 GFR CALC 4505521 GFR Afr Amr >60 mL/min 08/07/2017 COMPLETE BLOOD COUNT 3091127 WBC 9.2 10e9/L 07/15/2017 COMPLETE BLOOD COUNT 3341648 RBC 4.70 10e12/L 8 COMPLETE BLOOD COUNT 5152381 HEMOGLOBIN 15.4 g/dL 07/15/2017 COMPLETE BLOOD COUNT 4505528 HEMATOCRIT 46.2 % 07/15/2017 COMPLETE BLOOD COUNT 5282686 MCV 98.3 fL 07/15/2017 COMPLETE BLOOD COUNT 9797620 MCH 32.8 pg 07/15/2017 COMPLETE BLOOD COUNT 2018958 MCHC 33.3 g/dL 07/15/2017 COMPLETE BLOOD COUNT 6213226 PLATELET COUNT 348 10e9/L 07/15/2017 COMPLETE BLOOD COUNT 4433775 Mean Plt Volume 8.9 fL 07/15/2017 COMPLETE BLOOD COUNT 9834024 Neut Auto 60.6 % 07/15/2017 COMPLETE BLOOD COUNT 6106220 Lymph Auto 30.9 % 07/15/2017 COMPLETE BLOOD COUNT 1750411 [place] Auto 7.1 % 07/15/2017 COMPLETE BLOOD COUNT 0298790 RDW 13.1 % 07/15/2017 COMPLETE BLOOD COUNT 6168172 Eos Auto 1.2 % 07/15/2017 COMPLETE BLOOD COUNT 6211070 Baso Auto 0.2 % 07/15/2017 COMPLETE BLOOD COUNT 5450056 Neutrophil Abs 5.58 10e9/L 07/15/2017 COMPLETE BLOOD COUNT 3694884 Lymphocyte Abs 2.84 10e9/L 07/15/2017 COMPLETE BLOOD COUNT 8617686 Monocyte Abs 0.65 10e9/L 07/15/2017 COMPLETE BLOOD COUNT 4132557 Eosinophil Abs 0.11 10e9/L 07/15/2017 COMPLETE BLOOD COUNT 4511071 RDW-SD 46.1 fL 07/15/2017 COMPLETE BLOOD COUNT 5391569 Basophil Abs 0.02 10e9/L 07/15/2017 GFR CALC 5998553 GFR Non Afr Amr >60 mL/min 07/15/2017 GFR CALC 9809021 GFR Afr Amr >60 mL/min 07/15/2017 COMPREHENSIVE METABOLIC 27512 AST 16 U/L 07/15/2017 COMPREHENSIVE METABOLIC 67814 ALT 20 U/L 07/15/2017 COMPREHENSIVE METABOLIC 38273 BUN 13 mg/dL 07/15/2017 COMPREHENSIVE METABOLIC 47011 ALBUMIN 4.6 g/dL 07/15/2017 COMPREHENSIVE METABOLIC 63550 CHLORIDE 106 mmol/L 07/15/2017 COMPREHENSIVE METABOLIC 61424 Bili Total 0.3 mg/dL 07/15/2017 COMPREHENSIVE METABOLIC 18457 ALK PHOS 50 U/L 07/15/2017 COMPREHENSIVE METABOLIC 09967 SODIUM 137 mmol/L 07/15/2017 COMPREHENSIVE METABOLIC 42906 CREATININE 0.62 mg/dL 07/15/2017 COMPREHENSIVE METABOLIC 63182 CALCIUM 9.2 mg/dL 07/15/2017 COMPREHENSIVE METABOLIC 92694 POTASSIUM 3.8 mmol/L 07/15/2017 COMPREHENSIVE METABOLIC 87613 Total Protein 6.7 g/dL 07/15/2017 COMPREHENSIVE METABOLIC 35488 Glucose 83 mg/dL 07/15/2017 COMPREHENSIVE METABOLIC 30412 Bicarbonate 30 mmol/L 07/15/2017 COMPREHENSIVE METABOLIC 81076 AGAP 1 mmol/L 07/15/2017 THYROID STIMULATING HORMONE 46582 TSH 2.111 uIU/mL 7 COMPREHENSIVE METABOLIC 26937 AST 33 U/L 08/27/2016 COMPREHENSIVE METABOLIC 21612 ALT 55 U/L 08/27/2016 COMPREHENSIVE METABOLIC 18128 BUN 11 mg/dL 08/27/2016 COMPREHENSIVE METABOLIC 91710 ALBUMIN 4.6 g/dL 08/27/2016 COMPREHENSIVE METABOLIC 71434 CHLORIDE 103 mmol/L 08/27/2016 COMPREHENSIVE METABOLIC 96268 Bili Total 0.3 mg/dL 08/27/2016 COMPREHENSIVE METABOLIC 67626 ALK PHOS 60 U/L 08/27/2016 COMPREHENSIVE METABOLIC 74835 SODIUM 140 mmol/L 08/27/2016 COMPREHENSIVE METABOLIC 49319 CREATININE 0.69 mg/dL 08/27/2016 COMPREHENSIVE METABOLIC 34917 CALCIUM 9.3 mg/dL 08/27/2016 COMPREHENSIVE METABOLIC 99099 POTASSIUM 3.7 mmol/L 08/27/2016 COMPREHENSIVE METABOLIC 47562 Total Protein 6.8 g/dL 08/27/2016 COMPREHENSIVE METABOLIC 09931 Glucose 79 mg/dL 08/27/2016 COMPREHENSIVE METABOLIC 07529 Bicarbonate 25 mmol/L 08/27/2016 COMPREHENSIVE METABOLIC 99771 AGAP 12 mmol/L 08/27/2016 COMPLETE BLOOD COUNT 0529223 WBC 9.4 10e9/L 08/27/2016 COMPLETE BLOOD COUNT 8543066 RBC 4.35 10e12/L 7 COMPLETE BLOOD COUNT 3012624 HEMOGLOBIN 14.2 g/dL 08/27/2016 COMPLETE BLOOD COUNT 9975967 HEMATOCRIT 41.5 % 08/27/2016 COMPLETE BLOOD COUNT 5684444 MCV 95.4 fL 08/27/2016 COMPLETE BLOOD COUNT 3418612 MCH 32.6 pg 08/27/2016 COMPLETE BLOOD COUNT 1836661 MCHC 34.2 g/dL 08/27/2016 COMPLETE BLOOD COUNT 8323240 PLATELET COUNT 289 10e9/L 08/27/2016 COMPLETE BLOOD COUNT 7086854 Mean Plt Volume 9.8 fL 08/27/2016 COMPLETE BLOOD COUNT 8509204 Neut Auto 47.7 % 08/27/2016 COMPLETE BLOOD COUNT 9536021 Lymph Auto 44.2 % 08/27/2016 COMPLETE BLOOD COUNT 3531273 [place] Auto 6.6 % 08/27/2016 COMPLETE BLOOD COUNT 4686909 RDW 12.9 % 08/27/2016 COMPLETE BLOOD COUNT 0755918 Eos Auto 1.4 % 08/27/2016 COMPLETE BLOOD COUNT 5648094 Baso Auto 0.1 % 08/27/2016 COMPLETE BLOOD COUNT 3299768 Neutrophil Abs 4.48 10e9/L 08/27/2016 COMPLETE BLOOD COUNT 2370918 Lymphocyte Abs 4.15 10e9/L 08/27/2016 COMPLETE BLOOD COUNT 6583881 Monocyte Abs 0.62 10e9/L 08/27/2016 COMPLETE BLOOD COUNT 1495437 Eosinophil Abs 0.13 10e9/L 08/27/2016 COMPLETE BLOOD COUNT 8568359 RDW-SD 43.9 fL 08/27/2016 COMPLETE BLOOD COUNT 9048950 Basophil Abs 0.01 10e9/L 08/27/2016 PT 0201981 PT 15.0 Seconds 08/27/2016 PT 5813246 INR 1.2 08/27/2016 GFR CALC 2271482 GFR Afr Amr >60 mL/min 08/27/2016 GFR CALC 3469202 GFR Non Afr Amr >60 mL/min 08/27/2016 GFR CALC 5505028 GFR Non Afr Amr >60 mL/min 05/24/2016 GFR CALC 7562910 GFR Afr Amr >60 mL/min 05/24/2016 COMPREHENSIVE METABOLIC 19533 AST 19 U/L 05/24/2016 COMPREHENSIVE METABOLIC 17845 ALT 23 U/L 05/24/2016 COMPREHENSIVE METABOLIC 28351 BUN 12 mg/dL 05/24/2016 COMPREHENSIVE METABOLIC 54543 ALBUMIN 4.1 g/dL 05/24/2016 COMPREHENSIVE METABOLIC 95345 CHLORIDE 105 mmol/L 05/24/2016 COMPREHENSIVE METABOLIC 18736 Bili Total 0.4 mg/dL 05/24/2016 COMPREHENSIVE METABOLIC 78978 ALK PHOS 52 U/L 05/24/2016 COMPREHENSIVE METABOLIC 36409 SODIUM 136 mmol/L 05/24/2016 COMPREHENSIVE METABOLIC 57835 CREATININE 0.61 mg/dL 05/24/2016 COMPREHENSIVE METABOLIC 08712 CALCIUM 8.8 mg/dL 05/24/2016 COMPREHENSIVE METABOLIC 10844 POTASSIUM 3.8 mmol/L 05/24/2016 COMPREHENSIVE METABOLIC 43573 Total Protein 6.2 g/dL 05/24/2016 COMPREHENSIVE METABOLIC 21073 Glucose 95 mg/dL 05/24/2016 COMPREHENSIVE METABOLIC 17160 Bicarbonate 19 mmol/L 05/24/2016 COMPREHENSIVE METABOLIC 70875 AGAP 12 mmol/L 05/24/2016 PT 9104520 PT 25.7 Seconds 05/24/2016 PT 2808901 INR 2.4 05/24/2016 PT 1274514 PT 22.2 Seconds 04/11/2016 PT 2859162 INR 2.0 04/11/2016 PT 3603569 PT 16.5 Seconds 03/13/2016 PT 4641313 INR 1.4 03/13/2016 THYROID STIMULATING HORMONE 34954 TSH 1.151 uIU/mL 6 COMPLETE BLOOD COUNT 8505444 WBC 10.0 10e9/L 03/12/2016 COMPLETE BLOOD COUNT 1724909 RBC 4.08 10e12/L 6 COMPLETE BLOOD COUNT 2963122 HEMOGLOBIN 13.5 g/dL 03/12/2016 COMPLETE BLOOD COUNT 9932237 HEMATOCRIT 38.8 % 03/12/2016 COMPLETE BLOOD COUNT 7034097 MCV 95.1 fL 03/12/2016 COMPLETE BLOOD COUNT 2042265 MCH 33.1 pg 03/12/2016 COMPLETE BLOOD COUNT 5290708 MCHC 34.8 g/dL 03/12/2016 COMPLETE BLOOD COUNT 6575156 PLATELET COUNT 282 10e9/L 03/12/2016 COMPLETE BLOOD COUNT 0207559 Mean Plt Volume 9.6 fL 03/12/2016 COMPLETE BLOOD COUNT 3409838 Neut Auto 53.5 % 03/12/2016 COMPLETE BLOOD COUNT 8152148 Lymph Auto 39.0 % 03/12/2016 COMPLETE BLOOD COUNT 8146710 [place] Auto 5.9 % 03/12/2016 COMPLETE BLOOD COUNT 4499102 RDW 12.6 % 03/12/2016 COMPLETE BLOOD COUNT 9091437 Eos Auto 1.4 % 03/12/2016 COMPLETE BLOOD COUNT 1811155 Baso Auto 0.2 % 03/12/2016 COMPLETE BLOOD COUNT 6775559 Neutrophil Abs 5.35 10e9/L 03/12/2016 COMPLETE BLOOD COUNT 0836698 Lymphocyte Abs 3.90 10e9/L 03/12/2016 COMPLETE BLOOD COUNT 5224402 Monocyte Abs 0.59 10e9/L 03/12/2016 COMPLETE BLOOD COUNT 4320747 Eosinophil Abs 0.14 10e9/L 03/12/2016 COMPLETE BLOOD COUNT 3302336 RDW-SD 42.7 fL 03/12/2016 COMPLETE BLOOD COUNT 8674476 Basophil Abs 0.02 10e9/L 03/12/2016 COMPREHENSIVE METABOLIC 17913 AST 13 U/L 03/12/2016 COMPREHENSIVE METABOLIC 71401 ALT 11 U/L 03/12/2016 COMPREHENSIVE METABOLIC 82399 BUN 11 mg/dL 03/12/2016 COMPREHENSIVE METABOLIC 90737 ALBUMIN 4.1 g/dL 03/12/2016 COMPREHENSIVE METABOLIC 16755 CHLORIDE 107 mmol/L 03/12/2016 COMPREHENSIVE METABOLIC 76831 Bili Total 0.3 mg/dL 03/12/2016 COMPREHENSIVE METABOLIC 20100 ALK PHOS 41 U/L 03/12/2016 COMPREHENSIVE METABOLIC 22840 SODIUM 137 mmol/L 03/12/2016 COMPREHENSIVE METABOLIC 94923 CREATININE 0.62 mg/dL 03/12/2016 COMPREHENSIVE METABOLIC 40128 CALCIUM 9.0 mg/dL 03/12/2016 COMPREHENSIVE METABOLIC 89696 POTASSIUM 3.8 mmol/L 03/12/2016 COMPREHENSIVE METABOLIC 77763 Total Protein 6.1 g/dL 03/12/2016 COMPREHENSIVE METABOLIC 63828 Glucose 95 mg/dL 03/12/2016 COMPREHENSIVE METABOLIC 27390 Bicarbonate 23 mmol/L 03/12/2016 COMPREHENSIVE METABOLIC 33178 AGAP 7 mmol/L 03/12/2016 GFR CALC 4923804 GFR Non Afr Amr >60 mL/min 03/12/2016 GFR CALC 4010717 GFR Afr Amr >60 mL/min 03/12/2016 PT 8544326 PT 14.4 Seconds 02/12/2016 PT 8281068 INR 1.2 02/12/2016 PT 5036383 PT 26.1 Seconds 02/01/2016 PT 5918056 INR 2.4 02/01/2016 EB VIRUS VCA G/M + EB[place] + [place] [address]|8 6665 x 2|90906 EBV VCA Ab IgG 3.70 11/13/2015 [place] VCA G/[place] + [place] + [place] [address]|8 6665 x 2|45196 EBV VCA Ab IgM 0.47 11/13/2015 EB VIRUS VCA G/M + EBNA + [place] [address]|8 6665 x 2|15763 EBV Nuclear Ab 2.24 11/13/2015 EB VIRUS VCA G/M + EB[place] + [place] [address]|8 6665 x 2|49907 EBV Early Ab 1.37 11/13/2015 PT 1912948 PT 18.9 Seconds 11/10/2015 PT 9904445 INR 1.6 11/10/2015 PT 8293517 PT 16.8 Seconds 09/29/2015 PT 6957008 INR 1.4 09/29/2015 COMPLETE BLOOD COUNT 4009875 WBC 9.6 10e9/L 09/29/2015 COMPLETE BLOOD COUNT 0336829 RBC 4.51 10e12/L 6 COMPLETE BLOOD COUNT 1072215 HEMOGLOBIN 14.8 g/dL 09/29/2015 COMPLETE BLOOD COUNT 7549911 HEMATOCRIT 43.3 % 09/29/2015 COMPLETE BLOOD COUNT 2602702 MCV 96.0 fL 09/29/2015 COMPLETE BLOOD COUNT 2208471 MCH 32.8 pg 09/29/2015 COMPLETE BLOOD COUNT 7322807 MCHC 34.2 g/dL 09/29/2015 COMPLETE BLOOD COUNT 2268638 PLATELET COUNT 310 10e9/L 09/29/2015 COMPLETE BLOOD COUNT 9104144 Mean Plt Volume 9.7 fL 09/29/2015 COMPLETE BLOOD COUNT 3690218 Neutrophil 60.3 % 09/29/2015 COMPLETE BLOOD COUNT 1930461 Lymph Auto % 32.4 % 09/29/2015 COMPLETE BLOOD COUNT 0972352 Monocyte Auto % 6.5 % 09/29/2015 COMPLETE BLOOD COUNT 9792719 RDW 12.8 % 09/29/2015 COMPLETE BLOOD COUNT 7172969 Eosinophil 0.7 % 09/29/2015 COMPLETE BLOOD COUNT 3063375 Basophil 0.1 % 09/29/2015 COMPLETE BLOOD COUNT 4073238 Neutrophil Abs 5.79 10e9/L 09/29/2015 COMPLETE BLOOD COUNT 2538822 Lymphoctye Abs 3.11 10e9/L 09/29/2015 COMPLETE BLOOD COUNT 3414634 Monocyte Abs 0.62 10e9/L 09/29/2015 COMPLETE BLOOD COUNT 3507877 Eosinophil Abs 0.07 10e9/L 09/29/2015 COMPLETE BLOOD COUNT 5557174 RDW-SD 43.6 fL 09/29/2015 COMPLETE BLOOD COUNT 5385619 Basophil Abs 0.01 10e9/L 09/29/2015 IRON 27833 Iron 86 ug/dL 09/29/2015 COMPLETE BLOOD COUNT 0420436 WBC 9.6 10e9/L 09/29/2015 COMPLETE BLOOD COUNT 6895965 RBC 4.51 10e12/L 6 COMPLETE BLOOD COUNT 2785884 HEMOGLOBIN 14.8 g/dL 09/29/2015 COMPLETE BLOOD COUNT 1571560 HEMATOCRIT 43.3 % 09/29/2015 COMPLETE BLOOD COUNT 2608333 MCV 96.0 fL 09/29/2015 COMPLETE BLOOD COUNT 5151381 MCH 32.8 pg 09/29/2015 COMPLETE BLOOD COUNT 9371558 MCHC 34.2 g/dL 09/29/2015 COMPLETE BLOOD COUNT 7196347 PLATELET COUNT 310 10e9/L 09/29/2015 COMPLETE BLOOD COUNT 8307162 Mean Plt Volume 9.7 fL 09/29/2015 COMPLETE BLOOD COUNT 1569253 Neutrophil 60.3 % 09/29/2015 COMPLETE BLOOD COUNT 6917584 Lymph Auto % 32.4 % 09/29/2015 COMPLETE BLOOD COUNT 5095571 Monocyte Auto % 6.5 % 09/29/2015 COMPLETE BLOOD COUNT 0653892 RDW 12.8 % 09/29/2015 COMPLETE BLOOD COUNT 2822203 Eosinophil 0.7 % 09/29/2015 COMPLETE BLOOD COUNT 5409456 Basophil 0.1 % 09/29/2015 COMPLETE BLOOD COUNT 5099223 Neutrophil Abs 5.79 10e9/L 09/29/2015 COMPLETE BLOOD COUNT 7640099 Lymphoctye Abs 3.11 10e9/L 09/29/2015 COMPLETE BLOOD COUNT 2835599 Monocyte Abs 0.62 10e9/L 09/29/2015 COMPLETE BLOOD COUNT 6696092 Eosinophil Abs 0.07 10e9/L 09/29/2015 COMPLETE BLOOD COUNT 0363581 RDW-SD 43.6 fL 09/29/2015 COMPLETE BLOOD COUNT 8460763 Basophil Abs 0.01 10e9/L 09/29/2015 PT 9983054 PT 16.8 Seconds 09/29/2015 PT 5921564 INR 1.4 09/29/2015 IRON 77594 Iron 86 ug/dL 09/29/2015 PT MT IVANNA 54751 PRO T PAULIE 19.4 SEC 07/27/2015 PT MT IVANNA 78897 INR M CMC 1.7 07/27/2015 PT MT IVANNA 07310 PRO T PAULIE 21.4 SEC 06/21/2015 PT MT IVANNA 54301 INR M CMC 1.9 06/21/2015 PT MT IVANNA 63658 PRO T PAULIE 24.5 SEC 05/24/2015 PT MT IVANNA 29911 INR M CMC 2.3 05/24/2015 Review of [...] station 05/24/2015 None Procedures Procedure Codes Date URINE CULTURE/ COLON Y COUNT CPT-4: 86957 02/08/2019 ROUTINE VENIPUNCTURE CPT-4: 42764 01/19/2019 PROTHROMBIN TIME CPT-4: 44478 01/19/2019 COMPLETE CBC W/AUTO DIFF WBC CPT-4: 59705 01/19/2019 ANTISTREPTOLYSIN O T ITER CPT-4: 64129 01/19/2019 HEPATIC FUNCTION PANEL CPT-4: 83708 01/19/2019 MYCOPLASMA ANTIBODY, IFA CPT-4: 61979A4 01/19/2019 RESPIRATORY CULTURE & STAIN CPT-4: 62855 01/19/2019 STREP A ASSAY W/OPTIC CPT-4: 81302 01/19/2019 THER/PROPH/DIAG INJ SC/IM CPT-4: 94511 01/04/2019 TRIAMCINOLONE ACET I NJ NOS CPT-4: J3301 01/04/2019 ROUTINE VENIPUNCTURE CPT-4: 75992 12/18/2018 COMPLETE CBC W/AUTO DIFF WBC CPT-4: 96291 12/18/2018 COMPREHEN METABOLIC PANEL CPT-4: 73660 12/18/2018 HYDRATION IV INFUSIO N INIT CPT-4: 69624 12/16/2018 STREP A ASSAY W/OPTIC CPT-4: 83591 12/02/2018 ROUTINE VENIPUNCTURE CPT-4: 65863 11/30/2018 PT CPT-4: 3284625 11/30/2018 CEFTRIAXONE SODIUM I NJECTION CPT-4: J0696 11/30/2018 THER/PROPH/DIAG INJ SC/IM CPT-4: 90680 11/30/2018 URINE CULTURE/ COLON Y COUNT CPT-4: 55676 11/20/2018 URINALYSIS NONAUTO W /O SCOPE CPT-4: 66606 11/20/2018 CEFTRIAXONE SODIUM I NJECTION CPT-4: J0696 11/12/2018 THER/PROPH/DIAG INJ SC/IM CPT-4: 06653 11/12/2018 STREP A ASSAY W/OPTIC CPT-4: 66309 11/11/2018 CEFTRIAXONE SODIUM I NJECTION CPT-4: J0696 11/11/2018 THER/PROPH/DIAG INJ SC/IM CPT-4: 67684 11/11/2018 ROUTINE VENIPUNCTURE CPT-4: 14627 11/11/2018 ANTISTREPTOLYSIN O T ITER CPT-4: 57219 11/11/2018 COMPLETE CBC W/AUTO DIFF WBC CPT-4: 23374 11/11/2018 ROUTINE VENIPUNCTURE CPT-4: 12159 10/27/2018 PT CPT-4: 9756120 10/27/2018 THER/PROPH/DIAG INJ SC/IM CPT-4: 95240 10/09/2018 TRIAMCINOLONE ACET I NJ NOS CPT-4: J3301 10/09/2018 CEFTRIAXONE SODIUM I NJECTION CPT-4: J0696 10/08/2018 THER/PROPH/DIAG INJ SC/IM CPT-4: 83591 10/08/2018 CEFTRIAXONE SODIUM I NJECTION CPT-4: J0696 10/07/2018 THER/PROPH/DIAG INJ SC/IM CPT-4: 92768 10/07/2018 ROUTINE VENIPUNCTURE CPT-4: 48101 09/25/2018 COMPREHEN METABOLIC PANEL CPT-4: 34530 09/25/2018 COMPLETE CBC W/AUTO DIFF WBC CPT-4: 76990 09/25/2018 PT CPT-4: 9866841 09/25/2018 URINE CULTURE/ COLON Y COUNT CPT-4: 11443 09/10/2018 URINALYSIS NONAUTO W /O SCOPE CPT-4: 87268 09/10/2018 CEFTRIAXONE SODIUM I NJECTION CPT-4: J0696 09/08/2018 THER/PROPH/DIAG INJ SC/IM CPT-4: 68832 09/08/2018 ROUTINE VENIPUNCTURE CPT-4: 15997 08/14/2018 PT CPT-4: 8985057 08/14/2018 CEFTRIAXONE SODIUM I NJECTION CPT-4: J0696 07/02/2018 THER/PROPH/DIAG INJ SC/IM CPT-4: 31761 07/02/2018 THER/PROPH/DIAG INJ SC/IM CPT-4: 20757 07/02/2018 TRIAMCINOLONE ACET I NJ NOS CPT-4: J3301 07/02/2018 ROUTINE VENIPUNCTURE CPT-4: 58417 06/22/2018 ANTISTREPTOLYSIN O T ITER CPT-4: 53162 06/22/2018 ROUTINE VENIPUNCTURE CPT-4: 16172 06/17/2018 PROTHROMBIN TIME CPT-4: 36089 06/17/2018 URINE CULTURE/ COLON Y COUNT CPT-4: 23723 06/17/2018 CEFTRIAXONE SODIUM I NJECTION CPT-4: J0696 05/12/2018 THER/PROPH/DIAG INJ SC/IM CPT-4: 44024 05/12/2018 PROTHROMBIN TIME CPT-4: 75213 05/11/2018 CEFTRIAXONE SODIUM I NJECTION CPT-4: J0696 05/11/2018 THER/PROPH/DIAG INJ SC/IM CPT-4: 54310 05/11/2018 ROUTINE VENIPUNCTURE CPT-4: 33540 04/30/2018 PROTHROMBIN TIME CPT-4: 87934 04/30/2018 THER/PROPH/DIAG INJ SC/IM CPT-4: 92719 04/02/2018 TRIAMCINOLONE ACET I NJ NOS CPT-4: J3301 04/02/2018 IIV4 VACCINE 3 YRS+ IM AND UP CPT-4: 24826 03/24/2018 IMMUNIZATION ADMIN CPT- 4: 89123 03/24/2018 ROUTINE VENIPUNCTURE CPT-4: 23089 03/24/2018 PT CPT-4: 4137144 03/24/2018 PROTHROMBIN TIME CPT-4: 10671 02/24/2018 ROUTINE VENIPUNCTURE CPT-4: 22997 02/24/2018 ROUTINE VENIPUNCTURE CPT-4: 10427 02/05/2018 PROTHROMBIN TIME CPT-4: 21968 02/05/2018 URINE CULTURE/ COLON Y COUNT CPT-4: 02261 02/05/2018 CEFTRIAXONE SODIUM I NJECTION CPT-4: J0696 01/29/2018 THER/PROPH/DIAG INJ SC/IM CPT-4: 98006 01/29/2018 CEFTRIAXONE SODIUM I NJECTION CPT-4: J0696 01/28/2018 THER/PROPH/DIAG INJ SC/IM CPT-4: 92401 01/28/2018 URINALYSIS NONAUTO W /O SCOPE CPT-4: 90425 01/26/2018 URINE CULTURE/ COLON Y COUNT CPT-4: 73511 01/26/2018 ROUTINE VENIPUNCTURE CPT-4: 38222 01/01/2018 PROTHROMBIN TIME CPT-4: 64534 01/01/2018 THER/PROPH/DIAG INJ SC/IM CPT-4: 09270 12/25/2017 TRIAMCINOLONE ACET I NJ NOS CPT-4: J3301 12/25/2017 DEXAMETHASONE SODIUM PHOS CPT-4: J1100 12/25/2017 STREP A ASSAY W/OPTIC CPT-4: 16398 12/11/2017 CEFTRIAXONE SODIUM I NJECTION CPT-4: J0696 12/11/2017 THER/PROPH/DIAG INJ SC/IM CPT-4: 95100 12/11/2017 ROUTINE VENIPUNCTURE CPT-4: 80449 12/01/2017 ANTISTREPTOLYSIN O T ITER CPT-4: 23154 12/01/2017 PROTHROMBIN TIME CPT-4: 08605 12/01/2017 VITAMIN D TOTAL (25 HYDROXY) CPT-4: 80842 12/01/2017 VITAMIN B-12 CPT-4: 90974 12/01/2017 SPECIMEN HANDLING OF FICE-LAB CPT-4: 37533 11/05/2017 ROUTINE VENIPUNCTURE CPT-4: 65873 10/14/2017 ANTISTREPTOLYSIN O T ITER CPT-4: 66299 10/14/2017 ROUTINE VENIPUNCTURE CPT-4: 53124 10/06/2017 PROTHROMBIN TIME CPT-4: 51640 10/06/2017 THER/PROPH/DIAG INJ SC/IM CPT-4: 34376 10/06/2017 TRIAMCINOLONE ACET I NJ NOS CPT-4: J3301 10/06/2017 ROUTINE VENIPUNCTURE CPT-4: 81610 10/01/2017 VITAMIN B-12 CPT-4: 04465 10/01/2017 FOLIC ACID CPT-4: 89875 10/01/2017 ASSAY THYROID STIM H ORMONE CPT-4: 56565 10/01/2017 ASSAY OF FREE THYROXINE CPT-4: 57663 10/01/2017 ASSAY TRIIODOTHYRONI NE (T3) CPT-4: 56067 10/01/2017 ASSAY OF BLOOD/URIC ACID CPT-4: 89175 10/01/2017 RHEUMATOID FACTOR QUANT CPT-4: 65991 10/01/2017 RBC SED RATE AUTOMATED CPT-4: 04396 10/01/2017 ANTISTREPTOLYSIN O T ITER CPT-4: 65837 10/01/2017 ASSAY OF IRON CPT-4: 36518 10/01/2017 ASSAY OF FERRITIN CPT-4: 59080 10/01/2017 ANTINUCLEAR ANTIBODIES CPT-4: 23181 10/01/2017 A1C HPLC CPT-4: 97173 10/01/2017 VITAMIN D TOTAL (25 HYDROXY) CPT-4: 54078 10/01/2017 THER/PROPH/DIAG INJ SC/IM CPT-4: 61796 09/05/2017 TRIAMCINOLONE ACET I NJ NOS CPT-4: J3301 09/05/2017 URINALYSIS NONAUTO W /O SCOPE CPT-4: 84345 09/05/2017 URINE CULTURE/ COLON Y COUNT CPT-4: 02024 09/05/2017 ROUTINE VENIPUNCTURE CPT-4: 13238 09/04/2017 PROTHROMBIN TIME CPT-4: 33174 09/04/2017 ROUTINE VENIPUNCTURE CPT-4: 54865 08/07/2017 COMPLETE CBC W/AUTO DIFF WBC CPT-4: 74983 08/07/2017 COMPREHEN METABOLIC PANEL CPT-4: 56958 08/07/2017 PROTHROMBIN TIME CPT-4: 08946 08/07/2017 INFLUENZA ASSAY W/OPTIC CPT-4: 70192 07/15/2017 ROUTINE VENIPUNCTURE CPT-4: 27338 07/15/2017 COMPREHEN METABOLIC PANEL CPT-4: 62029 07/15/2017 COMPLETE CBC W/AUTO DIFF WBC CPT-4: 50624 07/15/2017 CEFTRIAXONE SODIUM I NJECTION CPT-4: J0696 07/04/2017 THER/PROPH/DIAG INJ SC/IM CPT-4: 45831 07/04/2017 THER/PROPH/DIAG INJ SC/IM CPT-4: 88210 07/04/2017 TRIAMCINOLONE ACET I NJ NOS CPT-4: J3301 07/04/2017 CEFTRIAXONE SODIUM I NJECTION CPT-4: J0696 07/02/2017 THER/PROPH/DIAG INJ SC/IM CPT-4: 84276 07/02/2017 CEFTRIAXONE SODIUM I NJECTION CPT-4: J0696 07/01/2017 THER/PROPH/DIAG INJ SC/IM CPT-4: 00411 07/01/2017 ROUTINE VENIPUNCTURE CPT-4: 89720 06/19/2017 PROTHROMBIN TIME CPT-4: 91533 06/19/2017 THER/PROPH/DIAG INJ SC/IM CPT-4: 46508 04/01/2017 TRIAMCINOLONE ACET I NJ NOS CPT-4: J3301 04/01/2017 ROUTINE VENIPUNCTURE CPT-4: 31762 02/10/2017 PROTHROMBIN TIME CPT-4: 04588 02/10/2017 URINALYSIS NONAUTO W /O SCOPE CPT-4: 07017 02/10/2017 URINE CULTURE/ COLON Y COUNT CPT-4: 49434 02/10/2017 ROUTINE VENIPUNCTURE CPT-4: 07381 02/05/2017 PROTHROMBIN TIME CPT-4: 16957 02/05/2017 THROAT CULTURE CPT-4: 62350 02/03/2017 STREP A ASSAY W/OPTIC CPT-4: 48315 01/13/2017 ROUTINE VENIPUNCTURE CPT-4: 91165 12/18/2016 PROTHROMBIN TIME CPT-4: 07335 12/18/2016 URINE CULTURE/ COLON Y COUNT CPT-4: 38921 08/27/2016 ASSAY THYROID STIM H ORMONE CPT-4: 77601 08/27/2016 COMPREHEN METABOLIC PANEL CPT-4: 68358 08/27/2016 COMPLETE CBC W/AUTO DIFF WBC CPT-4: 35016 08/27/2016 PROTHROMBIN TIME CPT-4: 61024 08/27/2016 ROUTINE VENIPUNCTURE CPT-4: 26886 08/27/2016 ROUTINE VENIPUNCTURE CPT-4: 64710 05/24/2016 COMPREHEN METABOLIC PANEL CPT-4: 68345 05/24/2016 PROTHROMBIN TIME CPT-4: 92213 05/24/2016 URINALYSIS NONAUTO W /O SCOPE CPT-4: 06461 04/23/2016 URINE CULTURE/ COLON Y COUNT CPT-4: 88325 04/23/2016 PRESCRIP TRANSMIT A ERX SY CPT-4: G8553 04/23/2016 AEROBIC WOUND CULTUR E & STN CPT-4: 55970 04/17/2016 ROUTINE VENIPUNCTURE CPT-4: 41296 04/11/2016 PROTHROMBIN TIME CPT-4: 10237 04/11/2016 ROUTINE VENIPUNCTURE CPT-4: 23846 03/12/2016 COMPLETE CBC W/AUTO DIFF WBC CPT-4: 64366 03/12/2016 COMPREHEN METABOLIC PANEL CPT-4: 37949 03/12/2016 ASSAY THYROID STIM H ORMONE CPT-4: 88568 03/12/2016 PROTHROMBIN TIME CPT-4: 15875 03/12/2016 ROUTINE VENIPUNCTURE CPT-4: 67896 02/12/2016 PROTHROMBIN TIME CPT-4: 69859 02/12/2016 ROUTINE VENIPUNCTURE CPT-4: 46387 02/01/2016 PROTHROMBIN TIME CPT-4: 78465 02/01/2016 ROUTINE VENIPUNCTURE CPT-4: 76660 01/22/2016 PROTHROMBIN TIME CPT-4: 99046 01/22/2016 ROUTINE VENIPUNCTURE CPT-4: 29250 11/10/2015 PROTHROMBIN TIME CPT-4: 67377 11/10/2015 CEFTRIAXONE SODIUM I NJECTION CPT-4: J0696 11/10/2015 THER/PROPH/DIAG INJ SC/IM CPT-4: 32776 11/10/2015 EB VIRUS VCA G/M + E BNA + EA CPT-4: 10505|09121 x 2|99871 05/20/2 016 THROAT CULTURE CPT-4: 80942 11/09/2015 STREP A ASSAY W/OPTIC CPT-4: 06147 11/09/2015 STREP A ASSAY W/OPTIC CPT-4: 39161 10/02/2015 ROUTINE VENIPUNCTURE CPT-4: 47312 09/29/2015 COMPLETE CBC W/AUTO DIFF WBC CPT-4: 51187 09/29/2015 ASSAY OF IRON CPT-4: 20075 09/29/2015 PROTHROMBIN TIME CPT-4: 35956 09/29/2015 ROUTINE VENIPUNCTURE CPT-4: 79337 07/27/2015 PROTHROMBIN TIME CPT-4: 33851 07/27/2015 URINALYSIS NONAUTO W /O SCOPE CPT-4: 48566 06/30/2015 URINE CULTURE/ COLON Y COUNT CPT-4: 78805 06/30/2015 ROUTINE VENIPUNCTURE CPT-4: 95708 06/21/2015 PROTHROMBIN TIME CPT-4: 22138 06/21/2015 URINE CULTURE/ COLON Y COUNT CPT-4: 81993 05/31/2015 ROUTINE VENIPUNCTURE CPT-4: 84254 05/24/2015 PROTHROMBIN TIME CPT-4: 00248 05/24/2015 URINALYSIS NONAUTO W /O SCOPE CPT-4: 27755 05/24/2015 Vital Signs Date Vital 02/17/2019 Blood [...] 1: 122/70 Code: 8480-6 BMI: 32.2 Code: 86746-5 Heart Rate 1: 88 bpm Height: 5'3" Respiratory Rate: 20 bpm SpO2: 96% Temperature: 36.8 (C ) / 98.2 (F) Weight: 182 lbs 07/23/2018 Blood Pressure 1: 132/80 Code: 8480-6 Heart Rate 1: 84 bpm Respiratory Rate: 20 bpm SpO2: 96% Temperature: 36.6 (C ) / 97.8 (F) Weight: 187 lbs 07/08/2018 Blood Pressure 1: 122/70 Code: 8480-6 BMI: 32.2 Code: 68610-1 Heart Rate 1: 88 bpm Height: 5'3" Respiratory Rate: 20 bpm Temperature: 36.6 (C ) / 97.8 (F) Weight: 182 lbs 07/02/2018 Blood Pressure 1: 124/68 Code: 8480-6 BMI: 32.8 Code: 88375-1 Heart Rate 1: 84 bpm Height: 5'3" Respiratory Rate: 20 bpm SpO2: 98% Temperature: 36.3 (C ) / 97.3 (F) Weight: 185 lbs 06/02/2018 Blood Pressure 1: 132/90 Code: 8480-6 Heart Rate 1: 84 bpm Respiratory Rate: 18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 Discussion: pt/inr [...] ICD-10 : R05 01/19/2019 Appointment: Ivon Sky [address] [place], [place] [id number] ACUTE ILLNESS 01/19/2019 Visit Diagnosis Plan: Otalgia, [...] ICD-10 : R53.83 01/04/2019 Appointment: Ivon Sky [address] [place], [place] [address] ACUTE ILLNESS 01/04/2019 Appointment: Kristine Brambila WPtel: [address] [place] [address] LAB 12/18/2018 Appointment: Kristine Brambila WPtel: [address] [place] [address] ACUTE ILLNESS 12/16/2018 Visit Diagnosis Plan: Benign [...] : R53.83 12/03/2018 Appointment: Kristine Brambila WPtel: [address] [place] [address] ACUTE ILLNESS 12/03/2018 Visit Diagnosis Plan: Enlarged [...] ICD-10 : J02.9 12/02/2018 Appointment: Ivon Sky [address] [place] [address] FOLLOW UP 12/02/2018 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 instructed to call or rtc with any new or worsening concerns. tylenol prn pain. ICD-9 : 382.00 ICD-10 : H66.002 11/30/2018 Appointment: Ivon SkyImelda [address] ACUTE ILLNESS 11/30/2018 Patient Education: Coumadin- OptimizeRX Coupon [phone] [id number] https://www.MindFuse/[employer]/resources/getResource/61/5203a883-8s22-23j2-39 Completed 11/30/2018 Appointment: Kristine Brambila WPtel: [address] [place] [address] UA 11/20/2018 Appointment: Kristine Brambila WPtel: [address] [place] [address] US INJECTION 11/12/2018 Visit Diagnosis Plan: Streptococcal pharyngitis Discussion: Strep A- positive ASO titer today along with CBC. Rocephin 1 gram. RTC tmrw for another injection. Patient states understanding. ICD-9 : 034.0 ICD-10 : J02.0 11/11/2018 Appointment: Lulu Navarro [address] [place] [address] ACUTE ILLNESS 11/11/2018 Appointment: Kristine Barmbila WPtel: [address] [place] [address] ACUTE ILLNESS 10/27/2018 Appointment: Kristine Brambila WPtel: [address] [place] [address] US INJECTION 10/09/2018 Visit Diagnosis Plan: Acute recurrent maxillary sinusi tis Discussion: Rocephin 1 gram administered in clinic- patient tolerated well. Continue with supportive treatment at home as well. Tylenol for headache. Salt water gargles and sinus rinses advised. Patient states understanding. ICD-9 : 461.0 ICD-10 : J01.01 10/08/2018 Appointment: Lulu Navarro [address] [place] [address] US INJECTION 10/08/2018 Visit Diagnosis Plan: Acute recurrent maxillary sinusi tis Discussion: Rocephin- 1 gram administered in clinic. Patient tolerated well. Sinus rinses encouraged. Rest and fluids. Tylenol or Motrin for pain and fever. FU PRN. Patient states understanding. ICD-9 : 461.0 ICD-10 : J01.01 10/07/2018 Appointment: Lulu Navarro [address] [place] [address] ACUTE ILLNESS 10/07/2018 Visit Diagnosis Plan: Dizziness [...] ICD-10 : R42 09/25/2018 Appointment: Lulu Navarro [address] [place] [address] ACUTE ILLNESS 09/25/2018 Appointment: Krsitine Brambila WPtel: [address] [place] [address] UA 09/10/2018 Visit Diagnosis Plan: Furuncle right [...] : R22.1 09/08/2018 Appointment: Kristine Brambila WPtel: [facility] [address] ACUTE ILLNESS 09/08/2018 Patient Education: cefdinir- OptimizeRX Coupon [id number] https://www.MindFuse/samplemd/resources/getResource/61/v7172b92-0r48-5fwt-w5 Completed 09/08/2018 Appointment: Krist[facility]ambila [facility]Ptel[facility] [facility] [facility] 08/14/2018 Visit Diagnosis Plan: Acute sinusitis, [...] ICD-10 : H92.02 07/23/2018 Appointment: Ivon Sky [address] [place], [place] [address] ACUTE ILLNESS 07/23/2018 Patient Education: cyclobenzaprine- Opti mizeRX Coupon [id number] https://www.MindFuse/samplemd/resources/getResource/61/q321f5xm-m226-280x-zd 09-8y45ax077819.pdf Completed 07/23/2018 Visit Diagnosis Plan: Streptococcal infe ction, unspecified site Discussion: Randy Dove Sees dentist today t o assess tooth ICD-9 : 041.00 ICD-10 : A49.1 07/08/2018 Appointment: Kristine Brambila WPtel: [address] [facility] FOLLOW UP 07/08/2018 Patient Education: penicillin V potassiu m- OptimizeRX Coupon [id number] https://www.MindFuse/samplemd/resources/getResource/61/ov338579-2163-0680-46 fa-68087tp25p9v.pdf Completed 07/08/2018 Visit Diagnosis Plan: Localized enlarged [...] ICD-10 : K04.6 07/02/2018 Appointment: Ivon Sky [address] [place] [address] ACUTE ILLNESS 07/02/2018 Appointment: Kristine Brambila WPtel: [address] [place] [address] LAB 06/22/2018 Appointment: Kristine Brambila WPtel: [address] [place] [address] UA 06/17/2018 Visit Diagnosis Plan: Acute sinusitis, unspecified Discussion: dc keflex. start cefdinir daily for 10 days. saline up nares prn congestion. if no improvement after antibiotics or worsening symtpoms, call clinic. 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 clindamycin prescribed for patient to take as directed. instructed to stop nasal sprays due to worsening pain/irritation and only use saline rinse up nares for now. call with any new or worsening symptoms. ICD-9 : 461.9 ICD-10 : J01.90 04/02/2018 Appointment: Ivon Sky [address] [place] [address] ACUTE ILLNESS 04/02/2018 Patient Education: Patient Medication Summary Completed 04/02/2018 Appointment: Kristine Brambila WPtel: [address] [place] [address] LAB 03/24/2018 Patient Education: Patient Medication Summary [...] ICD-10 : G43.909 03/16/2018 Appointment: Ivon Sky [address] [place] [address] ACUTE ILLNESS 03/16/2018 Patient Education: Patient Medication Summary Completed 03/16/2018 Appointment: Kristine Brambila WPtel: [facility]66[facility] LAB 02/24/2018 Patient Education: Patient Medication Summary Completed 02/24/2018 Appointment: Kristine Brambila WPtel: [address] [place] [address] US RESCHEDULED 02/18/2018 Visit Diagnosis Plan: Abdominal distension (gaseous) Discussion: Wanda Restora Rx 1 daily Follow Up: 2 weeks ICD-9 : 787.3 ICD-10 : R14.0 02/16/2018 Visit Diagnosis Plan: Epigastric pain Discussion: Pepcid BID ICD-9 : 789.06 ICD-10 : R10.13 02/16/2018 Visit Diagnosis Plan: Diarrhea, unspecified Discussion: Wanda ICD-9 : 787.91 ICD-10 : R19.7 02/16/2018 Appointment: Kristine Brambila WPtel: [address] [place] [address] ACUTE ILLNESS 02/16/2018 Patient Education: Patient Medication Summary Completed 02/16/2018 Appointment: Kristine Brambila WPtel: [address] [place] [address] US INJECTION 02/05/2018 Patient Education: Patient Medication Summary Completed 02/05/2018 Appointment: Kristine Brambila WPtel: [address] [place], [place] [phone] US INJECTION 01/29/2018 Patient Education: Patient Medication Summary Completed 01/29/2018 Appointment: Kristine Brambila WPtel: [address] [place] [address] US INJECTION 01/28/2018 Patient Education: Patient Medication [...] ICD-10 : H66.001 01/26/2018 Appointment: Ivon Sky [address] [place] [address] ACUTE ILLNESS 01/26/2018 Patient Education: Patient Medication [...] ICD-10 : K13.79 01/01/2018 Appointment: Ivon Sky [address] [place] [address] ACUTE ILLNESS 01/01/2018 Patient Education: Patient Medication [...] ICD-10 : G43.909 12/25/2017 Appointment: Ivon Sky [address] [place] [address] ACUTE ILLNESS 12/25/2017 Patient Education: Patient Medication Summary Completed 12/25/2017 Visit Diagnosis Plan: Acute pharyngitis, unspecified Discussion: rapid strep negative. rocephin injection given in office. clindamycin prescribed as well to start tomorrow for 10 days. increase fluid intake. call or rtc next week if new or worsening symptoms. ICD-9 : 462 ICD-10 : J02.9 12/11/2017 Appointment: Ivon Sky [address] [place] [address] ACUTE ILLNESS 12/11/2017 Patient Education: Patient Medication Summary Completed 12/11/2017 Appointment: Kristine Brambila WPtel: [address] [place] [address] LAB 12/01/2017 Patient Education: Patient Medication Summary Completed 12/01/2017 Visit Diagnosis Plan: Encounter for gyne cological examination (general) (routine) without abnormal findings Discussion: Pap done as has a history of choriocarcinoma Had mammogram last month ICD-9 : V72.31 ICD-10 : Z01.419 11/05/2017 Appointment: Kristine Brambila WPtel: [address] [place] [address] Annual Well Visit 11/05/2017 Patient Education: Patient Medication Summary Completed 11/05/2017 Appointment: Kristine Brambila WPtel: [address] [place], [place] [address] LAB 10/14/2017 Patient Education: Patient Medication Summary Completed 10/14/2017 Care Plan: X-RAY EXAM OF SHOULDER right [facility] : 95820-7 Pending 10/07/2017 Visit Diagnosis Plan: Pain in right shoulder Discussion: xray ordered of right shoulder to rule out fracture. 40 mg kenalog given as one shot to assist with pain. ICD-9 : 719.41 ICD-10 : M25.511 10/06/2017 Visit Diagnosis Plan: jail (current ) use of anticoagulants Discussion: pt/inr completed at today's visit. ICD-9 : V58.61 ICD-10 : Z79.01 10/06/2017 Appointment: Ivon Sky [address] [place] [address] ACUTE ILLNESS 10/06/2017 Patient Education: Patient Medication [...] : I73.00 10/01/2017 Appointment: Kristine Brambila WPtel: [address] [place] [address] ACUTE ILLNESS 10/01/2017 Patient Education: Patient Medication [...] ICD-10 : T23.262A 09/10/2017 Appointment: Ivon Sky [address] [place] [address] ACUTE ILLNESS 09/10/2017 Patient Education: Patient Medication Summary Completed 09/10/2017 Appointment: Kristine Brambila WPtel: [address] [place] [address] US INJECTION 09/05/2017 Patient Education: Patient Medication Summary Completed 09/05/2017 Appointment: Kristine Brambila WPtel: [address] [place], [place] [phone] [place] LAB 09/04/2017 Patient Education: Patient Medication Summary Completed 09/04/2017 Appointment: Kristine Brambila WPtel: [address] [place], [place] [phone] [place] LAB 08/07/2017 Patient Education: Patient Medication Summary Completed 08/07/2017 Patient Education: Patient Medication Summary Completed 07/21/2017 Care Plan: CHEST X-RAY 2VW FRONTAL&LATL LOINC : 94153-2 Pending 07/21/2017 Visit Diagnosis Plan: Acute upper [...] : K21.9 07/15/2017 Appointment: Ivon Sky [address] [id number] ACUTE ILLNESS 07/15/2017 Patient Education: Patient Medication Summary Completed 07/15/2017 Appointment: Kristine Brambila WPtel: [address] [place], [place] [phone] [place] INJECTION 07/04/2017 Patient Education: Patient Medication Summary Completed 07/04/2017 Appointment: Kristine Brambila WPtel: [address] [place], [place] [phone] [place] INJECTION 07/02/2017 Patient Education: Patient Medication [...] : H66.92 07/01/2017 Appointment: Ivon Sky 504 [facility] ACUTE ILLNESS 07/01/2017 Patient Education: Patient Medication Summary Completed 07/01/2017 Care Plan: US EXAM OF HEAD AND NECK Pending 07/01/2017 Appointment: Kristine Brambila WPtel: [address] [facility] LAB 06/19/2017 Patient Education: Patient Medication Summary [...] ICD-10 : J18.9 05/27/2017 Appointment: Ivon Sky [address] [place] [address] ACUTE ILLNESS 05/27/2017 Patient Education: Patient Medication [...] : G47.00 05/20/2017 Appointment: Ivon Sky [address] [phone] ACUTE ILLNESS 05/20/2017 Patient Education: Patient Medication Summary Completed 05/20/2017 Visit Diagnosis Plan: Headache Discu ssion: Discussed likely Migraine Discussed MRI results Discussed changing acetazolamide to HCTZ ICD-9 : 784.0 ICD-10 : R51 04/22/2017 Visit Diagnosis Plan: Diplopia Discu ssion: Updated dilated eye exam ICD-9 : 368.2 ICD-10 : H53.2 04/22/2017 Appointment: Kristine Brambila WPtel: [address] [place] [address] FOLLOW UP 04/22/2017 Patient Education: Patient Medication Summary Completed 04/22/2017 Appointment: Kristine Brambila WPtel: [address] [place] [address] RESCHEDULED 04/07/2017 Visit Plan: Saline nasal flushes pr n. Tylenol/Motrin prn headache. Notify if persists/symptoms worsening. 04/01/2017 Visit Plan: Saline nasal flushes pr n. Tylenol/Motrin prn headache. Notify if persists/symptoms worsening. 04/01/2017 Visit NOS Plan: Plan Notes: Saline nasal flushes prn. Tyle... 04/01/2017 Visit Diagnosis Plan: Acute sinusitis, unspecified Discussion: Kenalog 40mg IM x1 Decadron/Garamycin Nose [place] Mix Has appointment on April 28 with ENT ICD-9 : 461.9 ICD-10 : J01.90 04/01/2017 Appointment: Kristine Brambila WPtel: [address] [place] [address] ACUTE ILLNESS 04/01/2017 Patient Education: Patient Medication Summary Completed 04/01/2017 Referral: Serjio Lugo WPtel: [address] [place] [address] Referral Appointment Requested 03/20/2017 Patient Education: Patient Medication Summary Completed 02/27/2017 Care Plan: CT ABDOMEN W/O DYE abd/pe lvis stone search LOINC : 20201-8 Pending 02/27/2017 Patient Education: Patient Medication Summary Completed 02/12/2017 Care Plan: MRI NECK SPINE W/O DYE LOINC : 62834-5 Pending 02/12/2017 Appointment: Kristine Brambila WPtel: [address] [place] [address] LAB 02/10/2017 Patient Education: Patient Medication Summary [...] : M54.2 02/05/2017 Appointment: Kristine Brambila WPtel: [address] [place] [address] ACUTE ILLNESS 02/05/2017 Patient Education: Patient Medication Summary Completed 02/05/2017 Care Plan: Referral Order SNOMED-CT : [id number] Pending 02/05/2017 Appointment: Kristine Brambila WPtel: [address] [place] [address] THROAT SWAB 02/03/2017 Patient Education: Patient Medication Summary Completed 02/03/2017 Appointment: Kristine Brambila WPtel: [address] [place] [address] 01/13 canceled~sl CANCELED 01/28/2017 Visit Plan: Supportive [...] : J02.8 01/13/2017 Appointment: Kristine Brambila WPtel: [address] [facility] ACUTE ILLNESS 01/13/2017 Patient Education: Patient Medication Summary Completed 01/13/2017 Appointment: Kristine Brambila WPtel: [facility]8 [facility] LAB 12/18/2016 Patient Education: Patient Medication Summary Completed 12/18/2016 Visit Diagnosis Plan: Pain in unspecified joint Discussion: Will retry methotrexate since has worked in past to greatly reduce patient's pain--4 tabs week one then 5 tabs week 2 then 6 tabs weekly and fwup in 6 weeks ICD-9 : 719.49 ICD-10 : M25.50 11/27/2016 Appointment: Kristine Brambila WPtel: [facility] 6/ lm~sl / confimed~sl MEDICATION REVIEW 11/27/2016 Patient Education: Patient Medication Summary Completed 11/27/2016 Visit Plan: Supportive care. Rest, Fluids, Tylenol/Motrin prn fever or bodyaches. Notify if worsening symptoms. 08/27/2016 Visit Plan: Supportive care. Rest, Fluids, Tylenol/Motrin prn fever or bodyaches. Notify if worsening symptoms. 08/27/2016 Visit NOS Plan: Plan Notes: Support gauri care. Rest, Fluids... 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 Discussion: PT/INR drawn ICD-9 : V58.61 ICD-10 : Z79.01 08/27/2016 Visit Diagnosis Plan: Dysuria Discus steven: Culture urine ICD-9 : 788.1 ICD-10 : R30.0 08/27/2016 Visit Diagnosis Plan: URI, ACUTE Dis cussion: Supportive care ICD-9 : 465.9 ICD-10 : J06.9 08/27/2016 Appointment: Kristine Brambila WPtel: [address] [place], [place] [phone] / confirmed`sl MEDICATION REVIEW 08/27/2016 Patient Education: Patient Medication Summary Completed 08/27/2016 Appointment: Kristine Brambila WPtel: [address] [place], [place] [phone] BP CHECK 07/08/2016 Patient Education: Patient Medication Summary Completed 07/08/2016 Appointment: Kristine Brambila WPtel: [address] [place], [place] [phone] LAB 05/24/2016 Patient Education: Patient Medication Summary Completed 05/24/2016 Appointment: Kristine Brambila WPtel: [address] [place], [place] [phone] 04/24 will not be able to get [...] with culture results 04/23/2016 Appointment: Nayeli Anderson [address] [place], [place] [phone] ACUTE ILLNESS 04/23/2016 Patient Education: Patient Medication [...] oral abx 04/17/2016 Appointment: Nayeli Anderson [address] ACUTE ILLNESS 04/17/2016 Patient Education: Patient Medication Summary Completed 04/17/2016 Patient Education: [facility] - Saving AutoInj - 18-64 - Dynamic Portal ID Completed 04/17/2016 Appointment: Kristine Brambila WPtel: [address] [place] [address] [place] LAB 04/11/2016 Patient Education: Patient Medication [...] for migraines 03/12/2016 Appointment: Kristine Brambila WPtel: [address] [place] [address] 03/12 confirmed-sp FOLLOW UP 03/12/2016 Patient Education: Patient Medication Summary Completed 03/12/2016 Appointment: Kristine Brambila WPtel: [address] [place] [address] LAB 02/12/2016 Patient Education: Patient Medication Summary Completed 02/12/2016 Appointment: Kristine Brambila WPtel: [address] [place] [address] LAB 02/01/2016 Patient Education: Patient Medication Summary Completed 02/01/2016 Appointment: Kristine Brambila WPtel: [address] [place] [address] LAB 01/22/2016 Patient Education: Patient Medication Summary [...] no improvement 11/10/2015 Appointment: Julee Slater WPtel: [address] [place] [address] ACUTE ILLNESS 11/10/2015 Patient Education: Patient Medication [...] care otherwise 11/09/2015 Appointment: Nayeli Anderson [address] ACUTE ILLNESS 11/09/2015 Patient Education: Patient Medication Summary Completed 11/09/2015 Referral: Maximiliano Neves WPtel: [address] Spoke with Sally at Dr. Ta's offic e. Patient is scheduled for 10/16/15 at 3:15pm. Demographics and notes have been faxed. Patient has been informed. 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 10/02/2015 Visit Plan: Labs [...] management of pain 10/02/2015 Appointment: Nayeli Anderson [address] [place], [place] [id number] ACUTE ILLNESS 10/02/2015 Patient Education: Patient Medication Summary Completed 10/02/2015 Patient Education: [facility] - Saving AutoInj - 18-64 - Dynamic Portal ID Completed 10/02/2015 Care Plan: US EXAM OF HEAD AND NECK Pending 10/02/2015 Appointment: Kristine Brambila WPtel: [address] [place], [place] [address] [place] LAB 09/29/2015 Patient Education: Patient Medication Summary Completed 09/29/2015 Appointment: Kristine Barmbila WPtel: [address] [place], [place] [address] [place] LAB 07/27/2015 Patient Education: Patient Medication Summary Completed 07/27/2015 Visit Plan: Trial of Savella Did no t tolerate lyrica Did not tolerate cymbalta 07/10/2015 Appointment: Kristine Brambila WPtel: [address] [place], [place] [phone] 07/10 appt confirmed cn FOLLOW UP 07/10/2015 Patient Education: Patient Medication Summary Completed 07/10/2015 Appointment: Krist[facility] Brambila [facility]Ptel: [phone] [facility] [facility] 06/30/2015 Patient Education: Patient Medication Summary Completed 06/30/2015 Visit Plan: Recommended Vitamin E o il topically bid to area of scar. Currently taking Amoxicillin for sinusitis. Recommend Flonase nasal spray 06/27/2015 Visit Plan: Recommended Vitamin E o il topically bid to area of scar. Currently taking Amoxicillin for sinusitis. Recommend Flonase nasal spray 06/27/2015 Appointment: Meli Hatch [facility]el[phone] [facility] [facility] 06/27/2015 Patient Education: Patient Medication Summary Completed 06/27/2015 Appointment: Meli Hatch WPtel: [phone] [facility] 06/22/15 appt confirmed and she will dreacharisma garcia new insurance card ACUTE ILLNESS 06/26/2015 Appointment: Kristine Brambila WPtel: [phone] [facility] [facility] 06/21/2015 Patient Education: Patient Medication Summary Completed 06/21/2015 Visit Plan: Add cymbalta at 30mg da loli Repeat PT/INR in 2weeks Recheck 1mo Awaiting ID to reschedule 06/08/2015 Visit Plan: Add cymbalta at 30mg da loli Repeat PT/INR in 2weeks Recheck 1mo Awaiting ID to reschedule 06/08/2015 Appointment: Kristine Brambila WPtel: [phone] [facility] 06/07 lm ~sl 06/08 confirmed ~sl FOLLOW UP 06/08/2015 Patient Education: Patient Medication Summary Completed 06/08/2015 Patient Education: [facility] - Saving AutoInj - Cymbalta - 18-64 - Dynamic Portal ID Completed 06/08/2015 Patient Education: [facility] - Saving AutoInj - 18-64 - Dynamic Portal ID Completed 06/08/2015 Appointment: Kristine Brambila WPtel: [phone] [facility] [facility]A 05/31/2015 Patient Education: Patient Medication Summary Completed 05/31/2015 Visit Plan: Check PT/INR today Stop ped Lyrica due to fluid retention Has appt. scheduled at [facility] with hematology and infectious disease 06/08 Follow-up appt. in 2 weeks following appt. at . 05/24/2015 Visit Plan: Check PT/INR today Stop ped Lyrica due to fluid retention Has appt. scheduled at [facility] with hematology and infectious disease 06/08 Follow-up appt. in 2 weeks following appt. at . 05/24/2015 Appointment: Meli Hatch WPtel: [phone] [facility] [facility] 05/24/2015 Patient Education: Patient Medication Summary Completed 05/24/2015 Patient Education: [facility] - Saving AutoInj - 18-64 - Dynamic Portal ID Completed 05/24/2015 Referral: Annamarie Melo WPtel: [facility] [address] [facility] Referral Initiated Instructions Comment . Rapid strep [...] to fluid retention Has appt. scheduled at [facility] with hematology and infectious disease 06/08 Follow-up appt. in 2 weeks following appt. at . . Check PT/INR today Stopped Lyrica due to fluid retention Has appt. scheduled at [facility] with hematology and infectious disease 06/08 Follow-up [...]
--- OUTSIDE RECORDS SUMMARY | 2020-01-28 13:58 | XMS REPORT | CCD ---
Author Author Heydi Hatch APRN Organization [facility] Address [address] [place] [address] Phone Care Team Providers Care Driver Supervisor Name Role Phone Kristine Brambila D.O., PP Unavailable CCM Unavailable Summary Purpose Interface Exchange Insurance Providers Payer name Policy type / Coverage type Covered constitution party ID Effective Begin Date Effective End Date Blue Cross Blue Shield Blue Cross/Bl ue Shield [id number] 2018 Un known Family History Family History data not found Social History Social History Element Codes Description Effective Dates Tobacco history SNOMED CT: 60171975 Current every day smoker 06/08/2015 Allergies, Adverse [...] Codes Condition Status Onset Date Resolved Date Irritable bowel synd jose guadalupe with constipation [...] ICD-9: 786.2 ICD-10: R05 Active 07/21/2017 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 ICD-9: V58.61 ICD-10: [...] ICD-9: 382.00 ICD-10: H66.002 Active 11/30/2018 Unknown Encounter for therap eutic drug level monitoring ICD-9: V58.83 ICD-10: Z51.81 Active 01/21/2016 Unknown Dysuria ICD-9: 788.1 ICD-10: R30.0 Active [...] 02/10/2017 Unknown Pelvic and perineal pain ICD-9: [id number] ICD-10: R10.2 Active 02/10/2017 Unknown Cervicalgia ICD-9: [...] Condition Codes Effectiv e Dates Condition Status Irritable bowel synd jose guadalupe with constipation [...] COUGH ICD-9: 786.2 ICD-10: R05 07/21/2017 Active retirement (current) use of anticoagulants ICD-9: V58.61 ICD-10: [...] ear ICD-9: 382.00 ICD-10: H66.002 11/30/2018 Active Encounter for therap eutic drug level monitoring ICD-9: V58.83 ICD-10: Z51.81 01/21/2016 Active Dysuria ICD-9: 788.1 ICD-10: R30.0 06/29/2015 [...] 02/10/2017 Active Pelvic and perineal pain ICD-9: [id number] ICD-10: R10.2 02/10/2017 Active Cervicalgia ICD-9: 723.1 [...] Fill Instructions acetazolamide 125 mg tablet RxNorm: 863458 1 TABLET(S) PO BID 02/15/2019 04/15/2019 Active cholestyramine (with sugar) 4 gram oral powder RxNorm: 833741 1 UNIT DOSE PO QD 02/15/2019 04/15/2019 Ac tive penicillin V potassi um 500 mg tablet RxNorm: 503199 1 Tablet(s) PO BID 02/10/2019 02/16/2019 Ac tive penicillin V potassi um 500 mg tablet RxNorm: 367010 1 Tablet(s) PO BID 02/10/2019 02/09/2019 In active Diflucan 150 mg tablet RxNorm: 696601 TABLET(S) 1 TABLET(S) PO QW NEEDED 02/08/2019 No Stop Date Active Anusol-HC 25 mg rect al suppository RxNorm: 1545317 1 Suppository RTL QD as needed 02/08/2019 03/09/2019 Ac tive hydrocodone 10 mg-ac etaminophen 325 mg tablet RxNorm: 054181 1 Tablet(s) PO Q4-6H as needed for pain 02/01/2019 No Stop Date Active hydrocodone 10 mg-ac etaminophen 325 mg tablet RxNorm: 831583 1 Tablet(s) PO Q4-6H as needed for pain 02/01/2019 No Stop Date Active Diflucan 150 mg tablet RxNorm: 395280 Tablet(s) TABLET(S) 1 TABLET(S) PO QW NEEDED 01/28/2019 No Stop Date Active Vistaril 25 mg capsule RxNorm: 157831 1 Capsule(s) PO TID 01/27/2019 07/25/2019 Active ProAir HFA 90 mcg/ac tuation aerosol inhaler RxNorm: 830717 2 Puff(s) INH Q4H as needed 01/20/2019 No Stop Date Active Tessalon Perles 100 mg capsule RxNorm: 819146 1 Capsule(s) PO TID a s needed for cough 01/20/2019 No Stop Date Active doxycycline hyclate 100 mg capsule RxNorm: 9836151 1 Capsule(s) PO BID 01/20/2019 01/19/2019 In active doxycycline hyclate 100 mg capsule RxNorm: 6792840 1 Capsule(s) PO BID 01/20/2019 01/26/2019 In active Coumadin 5 mg tablet RxNorm: 163073 1 Tablet(s) PO QD (on Fri, , Fri, , Fri and Fri) 01/05/2019 06/09/2019 Active Generic For:COUMADIN 5MG TAB 05/25/2018 3:20:45 PM N O T I C E Last quantity doesn't match original quantity amoxicillin 500 mg c apsule RxNorm: 936052 1 Capsule(s) PO BID 01/05/2019 01/14/2019 Inactive amoxicillin 500 mg c apsule RxNorm: 955432 1 Capsule(s) PO BID 01/05/2019 01/04/2019 Inactive hydrocodone 10 mg-ac etaminophen 325 mg tablet RxNorm: 231916 1 Tablet(s) PO Q4-6H as needed for pain 01/01/2019 01/31/2019 Inactive cyclobenzaprine 10 m g tablet RxNorm: 142618 1 TABLET(S) PO QD NEEDED 12/23/2018 06/20/2019 Ac tive Coumadin 5 mg tablet RxNorm: 324741 Tablet(s) TAKE 1 TABLET(S) BY MOUTH FRI, FRI, FRI, Friday12/23/2018 01/04/2019 Inactive Generic For:COUMADIN 5MG TA B 05/25/2018 3:20:45 PM N O T I C E Last quantity doesn't match original quantity Diflucan 150 mg tablet RxNorm: 888103 Tablet(s) TABLET(S) 1 TABLET(S) PO QW NEEDED 12/23/2018 01/27/2019 Inactive Vitamin D2 50,000 un it capsule RxNorm: 2657468 1 Capsule(s) PO QW 12/04/2018 03/03/2019 Active Medrol (Juan Francisco) 4 mg ta blets in a dose pack RxNorm: 659472 Tablet(s) PO as direc liane 12/04/2018 12/03/2018 In active Vitamin D2 50,000 un it capsule RxNorm: 2323776 1 Capsule(s) PO QW 12/04/2018 12/03/2018 Inactive Medrol (Juan Francisco) 4 mg ta blets in a dose pack RxNorm: 477372 Tablet(s) PO as direc liane 12/04/2018 01/19/2019 In active Zithromax Z-Juan Francisco 250 mg tablet RxNorm: 197210 Tablet(s) PO take as directed 12/02/2018 No Stop Date Active Vistaril 25 mg capsule RxNorm: 960835 Capsule(s) 1 Capsule(s) PO TID as needed for anxiety 11/30/2018 02/27/2019 Active Coumadin 5 mg tablet RxNorm: 291476 Tablet(s) TAKE 1 TABLET(S) BY MOUTH FRI, FRI, FRI, Friday11/30/2018 12/22/2018 Inactive Generic For:COUMADIN 5MG TA B 05/25/2018 3:20:45 PM N O T I C E Last quantity doesn't match original quantity Diflucan 150 mg tablet RxNorm: 555851 Tablet(s) TABLET(S) 1 TABLET(S) PO QW NEEDED 11/26/2018 12/22/2018 Inactive cholestyramine (with sugar) 4 gram oral powder RxNorm: 564726 1 UNIT DOSE PO QD 11/24/2018 02/14/2019 In active acetazolamide 125 mg tablet RxNorm: 178215 1 Tablet(s) PO BID 11/24/2018 02/14/2019 Inactive cyclobenzaprine 10 m g tablet RxNorm: 104468 1 Tablet(s) PO QD as needed 11/17/2018 12/22/2018 In active hydrocodone 10 mg-ac etaminophen 325 mg tablet RxNorm: 591873 1 Tablet(s) PO Q4-6H as needed for pain 11/05/2018 01/31/2019 Inactive acetazolamide 125 mg tablet RxNorm: 752771 1 TABLET(S) PO BID 10/26/2018 11/23/2018 Inactive cholestyramine (with sugar) 4 gram oral powder RxNorm: 124140 1 UNIT DOSE PO QD 10/26/2018 11/23/2018 In active Coumadin 5 mg tablet RxNorm: 233817 TAKE 1 TABLET(S) BY MOUTH FRI, FRI, FRI, Friday10/26/2018 11/29/2018 Inactive Generic For:COUMADIN 5MG TAB 05/25/2018 3:20:45 PM N O T I C E Last quantity doesn't match original quantity Diflucan 150 mg tablet RxNorm: 191691 TABLET(S) 1 TABLET(S) PO QW NEEDED 10/26/2018 11/25/2018 In active hydrocodone 10 mg-ac etaminophen 325 mg tablet RxNorm: 292128 1 Tablet(s) PO Q4-6H as needed for pain 10/08/2018 11/04/2018 Inactive acetazolamide 125 mg tablet RxNorm: 872483 1 Tablet(s) PO BID 09/24/2018 10/23/2018 Inactive Coumadin 5 mg tablet RxNorm: 911049 TAKE 1 TABLET(S) BY MOUTH FRI, FRI, FRI, Friday09/24/2018 10/25/2018 Inactive Generic For:COUMADIN 5MG TAB 05/25/2018 3:20:45 PM N O T I C E Last quantity doesn't match original quantity Diflucan 150 mg tablet RxNorm: 736541 Tablet(s) 1 Tablet(s) PO QW as needed 09/24/2018 10/25/2018 In active cyclobenzaprine 10 m g tablet RxNorm: 311628 1 Tablet(s) PO QD as needed 09/24/2018 11/16/2018 In active Vistaril 25 mg capsule RxNorm: 553435 1 Capsule(s) PO TID as needed for anxiet y 09/24/2018 11/29/2018 In active cholestyramine (with sugar) 4 gram oral powder RxNorm: 005397 1 Unit Dose PO QD 09/24/2018 10/23/2018 In active Pyridium 200 mg tablet RxNorm: 4917517 1 Tablet(s) PO TID 09/10/2018 09/19/2018 Inactive Pyridium 200 mg tablet RxNorm: 2450603 1 Tablet(s) PO TID 09/10/2018 09/09/2018 Inactive hydrocodone 10 mg-ac etaminophen 325 mg tablet RxNorm: 013637 1 Tablet(s) PO Q4-6H as needed for pain 09/08/2018 10/07/2018 Inactive cefdinir 300 mg capsule RxNorm: 701289 1 Capsule(s) PO BID 09/08/2018 09/21/2018 Inactive hydrocodone 10 mg-ac etaminophen 325 mg tablet RxNorm: 324505 1 Tablet(s) PO Q4-6H as needed for pain 08/13/2018 09/07/2018 Inactive cyclobenzaprine 10 m g tablet RxNorm: 806054 1 Tablet(s) PO QD as needed 07/23/2018 09/23/2018 In active Diflucan 150 mg tablet RxNorm: 251867 Tablet(s) 1 Tablet(s) PO QW as needed 07/23/2018 09/23/2018 In active Ciprodex 0.3 %-0.1 % ear drops,suspension RxNorm: 642331 4 Drop(s) left otic ( ear) BID 07/23/2018 07/29/2018 Inactive hydrocodone 10 mg-ac etaminophen 325 mg tablet RxNorm: 293271 1 Tablet(s) PO Q4-6H as needed for pain 07/16/2018 08/12/2018 Inactive penicillin V potassi um 500 mg tablet RxNorm: 055487 1 Tablet(s) PO Q6H 07/08/2018 07/17/2018 In active cyclobenzaprine 10 m g tablet RxNorm: 107658 1 Tablet(s) PO QD as needed 06/22/2018 07/22/2018 In active Vistaril 25 mg capsule RxNorm: 645176 1 Capsule(s) PO TID as needed for anxiet y 06/22/2018 09/23/2018 In active cholestyramine (with sugar) 4 gram oral powder RxNorm: 447281 1 Unit Dose PO QD 06/22/2018 09/23/2018 In active hydrocodone 10 mg-ac etaminophen 325 mg tablet RxNorm: 925386 1 Tablet(s) PO Q4-6H as needed for pain 06/17/2018 07/15/2018 Inactive cefdinir 300 mg capsule RxNorm: 195857 1 Capsule(s) PO BID 06/02/2018 06/11/2018 Inactive Diflucan 150 mg tablet RxNorm: 827990 Tablet(s) 1 Tablet(s) PO QW as needed 06/02/2018 07/22/2018 In active Coumadin 5 mg tablet RxNorm: 888304 TAKE 1 TABLET(S) BY MOUTH FRI, FRI, FRI, Friday05/25/2018 07/15/2018 Inactive Generic For:COUMADIN 5MG TAB 05/25/2018 3:20:45 PM N O T I C E Last quantity doesn't match original quantity Imitrex 50 mg tablet RxNorm: 547743 Tablet(s) 1 Tablet(s) PO at headache. re peat in 2 hours if no relief. no more than 2 tabs per day 05/19/2018 No Stop Date Active cholestyramine (with sugar) 4 gram oral powder RxNorm: 829527 1 Unit Dose PO QD 05/19/2018 11/14/2018 In active Vistaril 25 mg capsule RxNorm: 970620 1 Capsule(s) PO TID 05/19/2018 11/14/2018 Inactive Coumadin 5 mg tablet RxNorm: 007856 Tablet(s) TAKE 1 TABLET(S) BY MOUTH FRI, FRI, FRI, Friday05/19/2018 05/24/2018 Inactive Generic For:COUMADIN 5MG TA B N O T I C E Last quantity doesn't match original quantity acetazolamide 125 mg tablet RxNorm: 821976 1 Tablet(s) PO BID 05/19/2018 09/23/2018 Inactive cyclobenzaprine 10 m g tablet RxNorm: 024300 1 Tablet(s) PO QD as needed 05/19/2018 11/17/2018 In active Coumadin 7.5 mg tablet RxNorm: 293555 1 Tablet(s) PO QD , , 05/19/2018 01/04/2019 In active ketorolac 10 mg tablet RxNorm: 862392 1 Tablet(s) PO QHS as needed 05/11/2018 No Stop Date Active promethazine 12.5 mg tablet RxNorm: 565334 1 Tablet(s) PO Q6H as needed 04/23/2018 04/22/2018 In active acetazolamide 125 mg tablet RxNorm: 217428 1 Tablet(s) PO BID 04/23/2018 05/18/2018 Inactive Coumadin 5 mg tablet RxNorm: 774790 TAKE 1 TABLET(S) BY MOUTH FRI, FRI, FRI, Friday04/23/2018 05/18/2018 Inactive Generic For:COUMADIN 5MG TAB N O T I C E Last quantity doesn't match original quantity Imitrex 50 mg tablet RxNorm: 485426 1 Tablet(s) PO at headache. repeat in 2 hours if no relief. no more than 2 tabs per day 04/23/2018 05/18/2018 Inactive cyclobenzaprine 10 m g tablet RxNorm: 115282 1 Tablet(s) PO QD as needed 04/23/2018 05/18/2018 In active clindamycin HCl 300 mg capsule RxNorm: 265302 1 Capsule(s) PO TID 04/02/2018 04/11/2018 Inactive hydrocodone 10 mg-ac etaminophen 325 mg tablet RxNorm: 368119 1 Tablet(s) PO Q4-6H as needed for pain 03/24/2018 06/16/2018 Inactive promethazine 12.5 mg tablet RxNorm: 226550 1 Tablet(s) PO Q6H 03/23/2018 04/23/2018 Inactive Imitrex 50 mg tablet RxNorm: 394632 1 Tablet(s) PO at headache. repeat in 2 hours if no relief. no more than 2 tabs per day 03/23/2018 04/22/2018 Inactive Diflucan 150 mg tablet RxNorm: 557355 1 Tablet(s) PO QW as needed 03/23/2018 06/01/2018 Inactive Coumadin 5 mg tablet RxNorm: 083507 Tablet(s) 1 Tablet(s) PO Mon, Wed, Fri, Sun 03/23/2018 04/22/2018 In active Imitrex 100 mg tablet RxNorm: 113701 Tablet(s) PO take one tablet at sign of headache and repeat in 2 hours if ineffective 03/16/2018 04/01/2018 Inactive ondansetron HCl 4 mg tablet RxNorm: 924602 1 Tablet(s) PO Q4H as needed for nausea 02/24/2018 04/01/2018 In active hydrocodone 10 mg-ac etaminophen 325 mg tablet RxNorm: 675516 1 Tablet(s) PO Q4-6H as needed for pain 02/24/2018 03/23/2018 Inactive Coumadin 5 mg tablet RxNorm: 890295 Tablet(s) 1 Tablet(s) PO Mon, Wed, Fri, Sun 02/20/2018 03/22/2018 In active promethazine 12.5 mg tablet RxNorm: 140572 1 Tablet(s) PO Q6H 02/20/2018 03/22/2018 Inactive Pepcid 40 mg tablet RxNorm: 914483 1 Tablet(s) PO BID for stomach 02/16/2018 03/17/2018 In active Flagyl 500 mg tablet RxNorm: 088063 1 Tablet(s) PO TID 02/16/2018 02/25/2018 Inactive Imitrex 50 mg tablet RxNorm: 626009 1 Tablet(s) PO at headache. repeat in 2 hours if no relief. no more than 2 tabs per day 01/27/2018 03/15/2018 Inactive Coumadin 5 mg tablet RxNorm: 955336 1 Tablet(s) PO Mon, Wed, Fri, Sun 01/27/2018 02/20/2018 In active amoxicillin 875 mg t ablet RxNorm: 297885 1 Tablet(s) PO BID 01/26/2018 02/04/2018 Inactive Imitrex 50 mg tablet RxNorm: 054290 1 Tablet(s) PO at headache. repeat in 2 hours if no relief. no more than 2 tabs per day 01/26/2018 03/22/2018 Inactive cyclobenzaprine 10 m g tablet RxNorm: 394997 1 Tablet(s) PO QD as needed 01/23/2018 03/23/2018 In active promethazine 12.5 mg tablet RxNorm: 398080 1 Tablet(s) PO Q6H 01/23/2018 02/19/2018 Inactive Diflucan 150 mg tablet RxNorm: 042853 1 Tablet(s) PO QW as needed 01/22/2018 03/22/2018 Inactive acetazolamide 125 mg tablet RxNorm: 616188 1 Tablet(s) PO BID 01/22/2018 04/21/2018 Inactive Imitrex 50 mg tablet RxNorm: 493494 1 Tablet(s) PO at headache. repeat in 2 hours if no relief. no more than 2 tabs per day 01/02/2018 01/25/2018 Inactive Ciprodex 0.3 %-0.1 % ear drops,suspension RxNorm: 621800 4 Drop(s) otic (ear) BID 01/01/2018 01/07/2018 In active Coumadin 7.5 mg tablet RxNorm: 028802 1 Tablet(s) PO QD Tu, Th, 12/29/2017 05/18/2018 In active Coumadin 5 mg tablet RxNorm: 123046 1 Tablet(s) PO Mon, Wed, Fri, Sun 12/29/2017 01/26/2018 In active cyclobenzaprine 10 m g tablet RxNorm: 548972 1 Tablet(s) PO QD as needed 12/29/2017 01/22/2018 In active clindamycin HCl 300 mg capsule RxNorm: 891787 1 Capsule(s) PO TID 12/26/2017 12/25/2017 Inactive Imitrex 50 mg tablet RxNorm: 802982 1 Tablet(s) PO at headache. repeat in 2 hours if no relief. no more than 2 tabs per day 12/26/2017 01/01/2018 Inactive clindamycin HCl 300 mg capsule RxNorm: 618225 1 Capsule(s) PO TID 12/26/2017 01/04/2018 Inactive Zithromax Z-Juan Francisco 250 mg tablet RxNorm: 446791 Tablet(s) PO take as directed 12/25/2017 12/25/2017 In active promethazine 12.5 mg tablet RxNorm: 211549 1 Tablet(s) PO Q6H 12/25/2017 01/22/2018 Inactive clindamycin HCl 300 mg capsule RxNorm: 626211 1 Capsule(s) PO TID 12/11/2017 12/17/2017 Inactive Vistaril 25 mg capsule RxNorm: 787070 1 Capsule(s) PO TID as needed for anxiet y 12/04/2017 05/18/2018 In active cholestyramine (with sugar) 4 gram oral powder RxNorm: 575403 1 Unit Dose PO QD 12/04/2017 05/18/2018 In active Coumadin 7.5 mg tablet RxNorm: 780826 1 Tablet(s) PO QD 12/04/2017 12/28/2017 Inactive Coumadin 5 mg tablet RxNorm: 111992 1 Tablet(s) PO Friday through Friday12/04/2017 12/28/2017 In active hydrocodone 10 mg-ac etaminophen 325 mg tablet RxNorm: 058500 1 Tablet(s) PO Q4-6H as needed for pain 12/01/2017 02/23/2018 Inactive hydrocodone 10 mg-ac etaminophen 325 mg tablet RxNorm: 855727 1 Tablet(s) PO Q4-6H as needed for pain 11/03/2017 11/30/2017 Inactive cyclobenzaprine 10 m g tablet RxNorm: 866110 1 Tablet(s) PO QD as needed 10/30/2017 12/28/2017 In active cholestyramine (with sugar) 4 gram oral powder RxNorm: 567715 1 Unit Dose PO QD 10/30/2017 11/28/2017 In active amoxicillin 875 mg t ablet RxNorm: 815085 1 Tablet(s) PO BID 10/08/2017 10/07/2017 Inactive amoxicillin 875 mg t ablet RxNorm: 391773 1 Tablet(s) PO BID 10/08/2017 10/17/2017 Inactive penicillin V potassi um 500 mg tablet RxNorm: 359191 1 Tablet(s) PO BID 10/06/2017 10/07/2017 In active hydrocodone 10 mg-ac etaminophen 325 mg tablet RxNorm: 054495 1 Tablet(s) PO Q4-6H as needed for pain 10/06/2017 11/02/2017 Inactive hydrocodone 10 mg-ac etaminophen 325 mg tablet RxNorm: 316331 1 Tablet(s) PO Q4-6H as needed for pain 10/06/2017 12/31/2018 Inactive Vigamox 0.5 % eye drops RxNorm: 926369 1 Drop(s) ophthalmic (eye) TID ONLY ADMI NISTER IF INFECTION 10/03/2017 10/02/2017 Inactive Vigamox 0.5 % eye drops RxNorm: 031324 1 Drop(s) ophthalmic (eye) TID ONLY ADMI NISTER IF INFECTION 10/03/2017 10/09/2017 Inactive cholestyramine (with sugar) 4 gram oral powder RxNorm: 979444 1 Unit Dose PO QD 09/23/2017 10/30/2017 In active acetazolamide 125 mg tablet RxNorm: 556108 1 Tablet(s) PO BID 09/23/2017 12/21/2017 Inactive Coumadin 5 mg tablet RxNorm: 104168 1 Tablet(s) PO QD FRIDAY THROUGH Friday09/17/2017 11/04/2017 In active mupirocin 2 % topica l ointment RxNorm: 942740 1 Application TOP TID 09/10/2017 11/04/2017 Inactive hydrocodone 10 mg-ac etaminophen 325 mg tablet RxNorm: 251125 1 Tablet(s) PO Q4-6H as needed for pain 09/08/2017 10/05/2017 Inactive Questran 4 gram powd er for susp in a packet RxNorm: 531071 MIX ONE PACKET IN 6 O UNCES OF APPLE SAUCE OR OTHER SOFT FOOD AND EAT ONCE DAILY 09/02/2017 11/04/2017 Inactive Diflucan 150 mg tablet RxNorm: 724003 1 Tablet(s) PO QW as needed 08/14/2017 01/21/2018 Inactive hydrocodone 10 mg-ac etaminophen 325 mg tablet RxNorm: 361217 1 Tablet(s) PO Q4-6H as needed for pain 08/11/2017 09/07/2017 Inactive Tamiflu 75 mg capsule RxNorm: 847332 1 Capsule(s) PO QD 08/11/2017 08/10/2017 Inactive Tamiflu 75 mg capsule RxNorm: 310989 1 Capsule(s) PO QD 08/11/2017 08/20/2017 Inactive Coumadin 5 mg tablet RxNorm: 167200 1 Tablet(s) PO QD FRIDAY THROUGH Friday07/22/2017 09/16/2017 In active Coumadin 5 mg tablet RxNorm: 353892 TAKE ONE TABLET BY MOUTH ONCE DAILY THROUGH Friday07/16/2017 07/21/2017 Inactive cyclobenzaprine 10 m g tablet RxNorm: 756247 1 Tablet(s) PO QD as needed 07/15/2017 10/30/2017 In active hydrocodone 10 mg-ac etaminophen 325 mg tablet RxNorm: 824921 1 Tablet(s) PO Q4-6H as needed for pain 07/14/2017 08/10/2017 Inactive warfarin 5 mg tablet RxNorm: 065390 1 Tablet(s) PO Fri Sat Sun-patie nt is due for PT/INR 06/18/2017 07/15/2017 Inactive Questran Light 4 gra m powder for susp in a packet RxNorm: 9098086 1 PO QD 06/18/2017 11/04/2017 In active cyclobenzaprine 10 m g tablet RxNorm: 871418 1 Tablet(s) PO QD as needed 06/18/2017 07/14/2017 In active hydrocodone 10 mg-ac etaminophen 325 mg tablet RxNorm: 219407 1 Tablet(s) PO Q4-6H as needed for pain 06/18/2017 07/13/2017 Inactive Lunesta 1 mg tablet RxNorm: 385211 1 Tablet(s) PO QHS as needed 05/27/2017 06/25/2017 Inactive Zithromax Z-Juan Francisco 250 mg tablet RxNorm: 583182 1 Tablet(s) PO Take a s directed 05/27/2017 11/04/2017 In active ProAir HFA 90 mcg/ac tuation aerosol inhaler RxNorm: 288954 2 Puff(s) INH Q4H 05/27/2017 01/19/2019 In active ProAir HFA 90 mcg/ac tuation aerosol inhaler RxNorm: 324996 2 Puff(s) INH Q4H 05/27/2017 05/26/2017 In active promethazine 6.25 mg -codeine 10 mg/5 mL syrup RxNorm: 333666 5 Milliliter(s) PO Q4 H as needed 05/27/2017 11/04/2017 Inactive Diflucan 150 mg tablet RxNorm: 104549 1 Tablet(s) PO QW as needed 05/26/2017 05/25/2017 Inactive cyclobenzaprine 10 m g tablet RxNorm: 325058 1 Tablet(s) PO QD as needed 05/20/2017 06/18/2017 In active Lunesta 2 mg tablet RxNorm: 400426 1 Tablet(s) PO QHS 05/20/2017 05/27/2017 Inactive Zithromax Z-Juan Francisco 250 mg tablet RxNorm: 644768 Tablet(s) PO As Direc liane 05/12/2017 05/19/2017 In active cyclobenzaprine 5 mg tablet RxNorm: 099036 1 Tablet(s) PO QPM 03/28/2017 05/19/2017 Inactive Vistaril 25 mg capsule RxNorm: 750279 1 Capsule(s) PO TID as needed for anxiet y 03/28/2017 09/23/2017 In active Questran 4 gram powd er for susp in a packet RxNorm: 490709 1 Unit(s) PO QD 03/06/2017 06/18/2017 In active Cipro 500 mg tablet RxNorm: 348056 1 Tablet(s) PO BID 02/27/2017 02/26/2017 Inactive Pyridium 200 mg tablet RxNorm: 9557077 1 Tablet(s) PO TID for bladder spasms 02/27/2017 03/31/2017 In active Cipro 500 mg tablet RxNorm: 168637 1 Tablet(s) PO BID 02/27/2017 03/05/2017 Inactive Levsin 0.125 mg tablet RxNorm: 8545610 1 Tablet(s) PO QID as needed for spasm 02/25/2017 11/04/2017 In active tamsulosin 0.4 mg ca psule RxNorm: 996130 1 Capsule(s) PO QPM 02/25/2017 03/26/2017 Inactive tamsulosin 0.4 mg ca psule RxNorm: 739807 1 Capsule(s) PO QPM 02/25/2017 02/24/2017 Inactive Pyridium 100 mg tablet RxNorm: 8979395 1 Tablet(s) PO TID as needed 02/21/2017 03/31/2017 In active acetazolamide 125 mg tablet RxNorm: 096214 1 Tablet(s) PO BID 02/07/2017 09/23/2017 Inactive Questran 4 gram powd er for susp in a packet RxNorm: 224377 1 Unit(s) PO QD 02/06/2017 03/06/2017 In active cyclobenzaprine 5 mg tablet RxNorm: 449981 1 Tablet(s) PO QPM 02/05/2017 03/27/2017 Inactive BuSpar 5 mg tablet RxNorm: 845585 1 Tablet(s) PO BID 02/03/2017 03/31/2017 Inactive Diflucan 150 mg tablet RxNorm: 998810 1 Tablet(s) PO QW as needed 01/15/2017 05/26/2017 Inactive Valtrex 1 gram tablet RxNorm: 928484 1 Tablet(s) PO TID 01/13/2017 01/19/2017 Inactive Vistaril 25 mg capsule RxNorm: 826358 1 Capsule(s) PO TID as needed for anxiet y 01/13/2017 03/27/2017 In active hydrocodone 10 mg-ac etaminophen 325 mg tablet RxNorm: 543309 1 Tablet(s) PO Q4-6H as needed for pain 01/13/2017 06/17/2017 Inactive Questran 4 gram powd er for susp in a packet RxNorm: 249136 1 Unit(s) PO QD 01/13/2017 09/23/2017 In active acetazolamide 125 mg tablet RxNorm: 540179 1 Tablet(s) PO BID 01/13/2017 02/06/2017 Inactive methotrexate (PF) 20 mg/0.4 mL subcutaneous auto-injector RxNorm: 1215393 Milliliter(s) SQ QW 12/26/2016 01/05/2017 Inactive Compazine 10 mg tablet RxNorm: 210493 1 Tablet(s) PO TID as needed for nausea 12/18/2016 11/04/2017 In active hydrocodone 10 mg-ac etaminophen 325 mg tablet RxNorm: 638619 1 Tablet(s) PO Q4-6H as needed for pain 12/17/2016 01/12/2017 Inactive Questran 4 gram powd er for susp in a packet RxNorm: 809141 1 Unit(s) PO QD 12/17/2016 01/13/2017 In active cyclobenzaprine 5 mg tablet RxNorm: 419296 1 Tablet(s) PO QPM 12/17/2016 02/05/2017 Inactive Questran Light 4 gra m powder for susp in a packet RxNorm: 3786604 1 PO QD 11/29/2016 06/17/2017 In active Zofran ODT 4 mg disi ntegrating tablet RxNorm: 895387 1 Tablet(s) PO Q4H as needed for nausea 11/29/2016 12/17/2016 Inactive methotrexate sodium 2.5 mg tablet RxNorm: 050888 4 Tablet(s) PO week 1 then 5 tablets po week 2 then 6 tablets weekly 11/27/2016 12/25/2016 Inactive warfarin 7.5 mg tablet RxNorm: 006182 1 Tablet(s) PO three times weekly 11/14/2016 03/31/2017 In active warfarin 7.5 mg tablet RxNorm: 147228 1 Tablet(s) PO three times weekly 11/13/2016 11/13/2016 In active Diflucan 150 mg tablet RxNorm: 291003 1 Tablet(s) PO QW as needed 11/05/2016 01/14/2017 Inactive Vistaril 25 mg capsule RxNorm: 057084 1 Capsule(s) PO TID as needed for anxiet y 11/04/2016 11/03/2016 In active Coumadin 5 mg tablet RxNorm: 146591 1 Tablet(s) PO Friday through Friday11/04/2016 06/18/2017 In active acetazolamide 125 mg tablet RxNorm: 843417 1 Tablet(s) PO BID 11/04/2016 01/13/2017 Inactive sumatriptan 100 mg t ablet RxNorm: 205588 1 Tablet(s) PO at hea dache onset. May repeat in 2 hours if headache remains 11/04/2016 11/04/2017 Inactive Vistaril 25 mg capsule RxNorm: 672388 1 Capsule(s) PO TID as needed for anxiet y 11/04/2016 01/12/2017 In active hydrocodone 10 mg-ac etaminophen 325 mg tablet RxNorm: 144230 1 Tablet(s) PO Q4-6H as needed for pain 11/04/2016 12/16/2016 Inactive Coumadin 5 mg tablet RxNorm: 044994 TAKE ONE TABLET BY MOUTH ON SUN., MON., FRI., AND FRI., AND TAKE ONE AND ONE-HALF TABLETS TUE., TH., AND 10/16/2016 10/25/2016 In active Coumadin 5 mg tablet RxNorm: 493521 1 Tablet(s) PO Friday through Friday10/15/2016 11/03/2016 In active hydrocodone 10 mg-ac etaminophen 325 mg tablet RxNorm: 698451 1 Tablet(s) PO Q4-6H as needed for pain 10/14/2016 11/03/2016 Inactive hydrocodone 10 mg-ac etaminophen 325 mg tablet RxNorm: 180875 1 Tablet(s) PO Q4-6H as needed for pain 09/20/2016 10/13/2016 Inactive warfarin 7.5 mg tablet RxNorm: 163467 1 Tablet(s) PO three times weekly 09/20/2016 11/12/2016 In active Diflucan 150 mg tablet RxNorm: 444984 1 Tablet(s) PO QW as needed 08/20/2016 11/04/2016 Inactive acetazolamide 125 mg tablet RxNorm: 271048 1 Tablet(s) PO BID 08/20/2016 11/04/2016 Inactive Diflucan 150 mg tablet RxNorm: 041303 1 Tablet(s) PO QW as needed 08/20/2016 08/19/2016 Inactive Vistaril 25 mg capsule RxNorm: 407154 Capsule(s) TAKE ONE CAPSULE BY MOUTH THR EE TIMES DAILY NEEDED FOR ANXIETY 08/19/2016 11/04/2016 Inactive hydrocodone 10 mg-ac etaminophen 325 mg tablet RxNorm: 935354 1 Tablet(s) PO Q4-6H as needed for pain 08/05/2016 09/19/2016 Inactive Diflucan 150 mg tablet RxNorm: 749665 1 Tablet(s) PO QW as needed 07/19/2016 08/19/2016 Inactive tizanidine 4 mg tablet RxNorm: 822046 1-2 Tablet(s) PO QHS as needed for muscl e spasm and sleep 06/03/2016 06/10/2016 Inactive Questran Light 4 gra m powder for susp in a packet RxNorm: 9136756 1 PO QD 05/14/2016 08/11/2016 In active Macrobid 100 mg capsule RxNorm: 093445 1 Capsule(s) PO BID 04/23/2016 05/02/2016 Inactive mupirocin 2 % topica l ointment RxNorm: 951948 Apply topically to af fected area 2-3 times daily 04/17/2016 07/07/2016 Inactive Vistaril 25 mg capsule RxNorm: 387165 TAKE ONE CAPSULE BY MOUTH THREE TIMES DA LOLI NEEDED FOR ANXIETY 04/17/2016 11/04/2016 Inactive Diflucan 150 mg tablet RxNorm: 566293 1 Tablet(s) PO QW as needed 04/16/2016 07/18/2016 Inactive cyclobenzaprine 5 mg tablet RxNorm: 678596 TAKE ONE TABLET BY MO UTH ONCE DAILY IN THE EVENING 03/25/2016 12/17/2016 Inactive Pyridium 100 mg tablet RxNorm: 2558064 1 Tablet(s) PO TID as needed 03/20/2016 03/19/2016 In active Diflucan 150 mg tablet RxNorm: 356380 1 Tablet(s) PO QW as needed 03/20/2016 04/15/2016 Inactive Pyridium 100 mg tablet RxNorm: 5860991 1 Tablet(s) PO TID as needed 03/20/2016 08/26/2016 In active Diflucan 150 mg tablet RxNorm: 239660 1 Tablet(s) PO QW as needed 03/19/2016 03/19/2016 Inactive Coumadin 7.5 mg tablet RxNorm: 524566 1 Tablet(s) PO QD 03/14/2016 05/12/2016 Inactive acetazolamide 125 mg tablet RxNorm: 587113 1 Tablet(s) PO BID 02/28/2016 08/20/2016 Inactive Coumadin 5 mg tablet RxNorm: 468396 1 TABLET(S) PO QD THREE TIMES A WEEK AND 1 1/2 TAB (7.5MG) FOUR TIMES A WEEK 02/28/2016 03/13/2016 Inactive Questran Light 4 gra m powder for susp in a packet RxNorm: 8266816 1 PO QD 02/13/2016 05/12/2016 In active Diflucan 150 mg tablet RxNorm: 567113 1 Tablet(s) PO QW as needed 01/19/2016 03/11/2016 Inactive Diflucan 150 mg tablet RxNorm: 307801 1 Tablet(s) PO QW as needed 01/18/2016 01/18/2016 Inactive promethazine 25 mg t ablet RxNorm: 702767 1 Tablet(s) PO Q4H as needed for nausea 12/05/2015 12/17/2016 In active Imitrex 100 mg tablet RxNorm: 748318 1 Tablet(s) PO at headache onset and may repeat in 2 hours if needed 12/05/2015 03/31/2017 Inactive Diflucan 150 mg tablet RxNorm: 558315 1 Tablet(s) PO QW as needed 11/24/2015 01/17/2016 Inactive Diflucan 150 mg tablet RxNorm: 641735 1 Tablet(s) PO QW as needed 11/21/2015 11/23/2015 Inactive Coumadin 5 mg tablet RxNorm: 967996 1 Tablet(s) PO QD three times a week and 1 1/2 tab (7.5mg) four times a week 11/13/2015 02/01/2016 Inactive Questran Light 4 gra m powder for susp in a packet RxNorm: 355844 1 PO QD 11/13/2015 02/10/2016 In active acetazolamide 125 mg tablet RxNorm: 686943 1 Tablet(s) PO BID 11/13/2015 02/10/2016 Inactive amoxicillin 875 mg t ablet RxNorm: 582267 1 Tablet(s) PO BID 11/09/2015 11/18/2015 Inactive Coumadin 7.5 mg tablet RxNorm: 352523 1 Tablet(s) PO on and 10/26/2015 10/25/2015 In active Coumadin 7.5 mg tablet RxNorm: 295412 1 Tablet(s) PO on and 10/26/2015 11/12/2015 In active Coumadin 5 mg tablet RxNorm: 175701 1 Tablet(s) PO Friday, Friday, Friday and Friday. 1.5 tablets Friday, and Friday. 10/26/2015 10/25/2015 Inactive Coumadin 5 mg tablet RxNorm: 157825 1 Tablet(s) PO Friday, Friday, Friday , and Friday. Take 1 1/2 on Friday, and Friday10/26/2015 11/12/2015 Inactive Coumadin 7.5 mg tablet RxNorm: 843899 1 Tablet(s) PO on and 10/26/2015 10/26/2015 In active Coumadin 5 mg tablet RxNorm: 346555 1 Tablet(s) PO Friday, Friday, Friday and Friday. 1.5 tablets Friday, and Friday. 10/26/2015 02/14/2016 Inactive Vistaril 25 mg capsule RxNorm: 818955 1 Capsule(s) PO TID as needed for anxiet y 10/10/2015 04/06/2016 In active cyclobenzaprine 5 mg tablet RxNorm: 915187 1 Tablet(s) PO QPM 10/10/2015 03/24/2016 Inactive Vistaril 25 mg capsule RxNorm: 611931 1 Capsule(s) PO TID as needed for anxiet y 10/10/2015 10/09/2015 In active cyclobenzaprine 5 mg tablet RxNorm: 055681 1 Tablet(s) PO QPM 10/10/2015 10/09/2015 Inactive Coumadin 5 mg tablet RxNorm: 082965 1 Tablet(s) PO Friday, Friday, Friday and Friday. 1.5 tablets Friday, and Friday. 10/02/2015 10/01/2015 Inactive Coumadin 5 mg tablet RxNorm: 562016 1 Tablet(s) PO Friday, Friday, Friday and Friday. 1.5 tablets Friday, and Friday. 10/02/2015 10/25/2015 Inactive amoxicillin 500 mg t ablet RxNorm: 971638 1 Tablet(s) PO TID 10/02/2015 10/11/2015 Inactive hydrocodone 10 mg-ac etaminophen 325 mg tablet RxNorm: 242422 1 Tablet(s) PO Q4-6H as needed for pain 10/02/2015 08/04/2016 Inactive Diflucan 150 mg tablet RxNorm: 707692 1 Tablet(s) PO QW as needed 10/02/2015 10/01/2015 Inactive amoxicillin 500 mg t ablet RxNorm: 219528 1 Tablet(s) PO TID 10/02/2015 10/01/2015 Inactive Diflucan 150 mg tablet RxNorm: 029837 1 Tablet(s) PO QW as needed 10/02/2015 10/09/2015 Inactive Coumadin 5 mg tablet RxNorm: 767981 1 Tablet(s) PO Mon.,Fri.,Fri., Sat. and Sun. 09/14/2015 10/01/2015 Inactive acetazolamide 125 mg tablet RxNorm: 402760 1 Tablet(s) PO BID 09/14/2015 11/12/2015 Inactive hydrocodone 10 mg-ac etaminophen 325 mg tablet RxNorm: 794651 1 Tablet(s) PO Q4-6H as needed for pain 09/01/2015 10/01/2015 Inactive Vistaril 25 mg capsule RxNorm: 486918 1 Capsule(s) PO TID as needed for anxiet y 08/24/2015 09/22/2015 In active baclofen 10 mg tablet RxNorm: 889841 1/2 Tablet(s) PO QAM and 1 tablet at bed time 07/27/2015 10/09/2015 Inactive Vistaril 25 mg capsule RxNorm: 383182 1 Capsule(s) PO BID 07/24/2015 08/22/2015 Inactive Savella 12.5 mg (5)- 25 mg(8)-50mg(42) tablets in a dose pack RxNorm: 583436 Tablet(s) PO as directed 07/10/2015 07/26/2015 Inactive hydrocodone 10 mg-ac etaminophen 325 mg tablet RxNorm: 949336 1 Tablet(s) PO Q6H as needed for pain 06/29/2015 08/10/2015 Inactive Coumadin 7.5 mg tablet RxNorm: 548928 1 Tablet(s) PO on and 06/21/2015 10/25/2015 In active Vistaril 25 mg capsule RxNorm: 034599 1 Capsule(s) PO BID 06/20/2015 07/24/2015 Inactive Cymbalta 30 mg capsu le,delayed release RxNorm: 370104 1 Capsule(s) PO QD 06/08/2015 07/09/2015 In active Coumadin 5 mg tablet RxNorm: 700704 1 Tablet(s) PO Mon.,Wed.,Fri., Sat. and Sun. 06/08/2015 07/07/2015 Inactive Coumadin 5 mg tablet RxNorm: 197713 1 Tablet(s) PO Mon.,Wed.,Fri., Sat. and Sun. 05/24/2015 06/07/2015 Inactive Coumadin 7.5 mg tablet RxNorm: 770714 1 Tablet(s) PO on and 05/24/2015 06/20/2015 In active Coumadin 7.5 mg tablet RxNorm: 218800 1 Tablet(s) PO on Friday No Start Date Active Vitamin B12 1000mcg Tablet RxNorm: 1/2 Tablet(s) PO QD No Start Date Active Bystolic 10 mg tablet RxNorm: 324989 3 Tablet(s) PO QAM No Start Date Active Vitamin D3 5,000 uni t tablet RxNorm: 467799 1 Tablet(s) PO QD No Start Date Active Bystolic 5 mg tablet RxNorm: 681361 1 Tablet(s) PO NOON No Start Date Active sumatriptan 100 mg t ablet RxNorm: 760792 1 Tablet(s) PO at hea dache onset. May repeat in 2 hours if headache remains No Start Date 11/03/2016 Inactive warfarin 7.5 mg tablet RxNorm: 965177 1 Tablet(s) PO three times weekly No Start Date 09/19/2016 Inactive ondansetron HCl 4 mg tablet RxNorm: 727202 1 Tablet(s) PO Q4H as needed for nausea No Start Date 02/23/2018 Inactive Imitrex 100 mg tablet RxNorm: 236328 1 Tablet(s) PO at headache onset and may repeat in 2 hours if needed No Start Date 12/04/2015 Inactive Vitamin B12 1000mcg Tablet RxNorm: 1/2 Tablet(s) PO on , hur, Fri and Sun and 1 tab all other days No Start Date 04/01/2018 Inactive baclofen 10 mg tablet RxNorm: 360991 1/2 Tablet(s) PO QAM and 1 tablet at bed time No Start Date 07/26/2015 Inactive tizanidine 4 mg tablet RxNorm: 835149 1-2 Tablet(s) PO QHS as needed for muscl e spasm and sleep No Start Date 06/02/2016 Inactive Flexeril 5 mg tablet RxNorm: 258673 1 Tablet(s) PO QD No Start Date 10/09/2015 Inactive methotrexate (PF) 20 mg/0.4 mL subcutaneous auto-injector RxNorm: 8959284 SQ QW No Start Date 12/25/2016 Inactive Bystolic 5 mg tablet RxNorm: 926520 1 Tablet(s) PO as needed No Start Date 03/15/2018 Inactive Questran Light 4 gra m powder for susp in a packet RxNorm: 044037 1 PO QD No Start Date 11/12/2015 Inactive Bystolic 10 mg tablet RxNorm: 980823 1 Tablet(s) PO QAM No Start Date 11/04/2017 Inactive warfarin 5 mg tablet RxNorm: 981011 1 Tablet(s) PO Fri Sun No Start Date 06/17/2017 Inactive hydrocodone 10 mg-ac etaminophen 325 mg tablet RxNorm: 152546 1 Tablet(s) PO 4-6hou rs as needed for pain No Start Date 08/31/2015 Inactive cyclobenzaprine 5 mg tablet RxNorm: 673690 1 Tablet(s) PO QPM No Start Date 12/16/2016 Inactive Lovenox 100 mg/mL carmona bcutaneous syringe RxNorm: 158311 1 Milliliter(s) SQ QD No Start Date 06/07/2015 Inactive Levsin 0.125 mg tablet RxNorm: 3302631 1 Tablet(s) PO QID as needed for spasm No Start Date 02/24/2017 Inactive Savella 12.5 mg (5)- 25 mg(8)-50mg(42) tablets in a dose pack RxNorm: 820399 Tablet(s) PO as directed No Start Date 07/09/2015 Inactive Coumadin 10 mg tablet RxNorm: 812303 1 Tablet(s) PO QD No Start Date 2015 Inactive tramadol 50 mg tablet RxNorm: 524177 1 Tablet(s) PO TID as needed for pain No Start Date 03/31/2017 Inactive BuSpar 5 mg tablet RxNorm: 220664 1 Tablet(s) PO BID No Start Date 02/02/2017 Inactive Vistaril 25 mg capsule RxNorm: 965903 1 Capsule(s) PO BID No Start Date 06/19/2015 Inactive Tessalon Perles 100 mg capsule RxNorm: 106027 1 Capsule(s) PO TID a s needed for cough No Start Date 01/19/2019 Inactive promethazine 12.5 mg tablet RxNorm: 608034 1 Tablet(s) PO Q6H as needed No Start Date 04/22/2018 Inactive Coumadin 7.5 mg tablet RxNorm: 095743 1 Tablet(s) PO Fri and Friday No Start Date 03/13/2016 Inactive Imitrex 50 mg tablet RxNorm: 042590 1 Tablet(s) PO at headache. repeat in 2 hours if no relief. no more than 2 tabs per day No Start Date 12/25/2017 Inactive acetazolamide 125 mg tablet RxNorm: 368681 1 Tablet(s) PO BID No Start Date 09/13/2015 Inactive methotrexate (PF) 12 .5 mg/0.4 mL subcutaneous auto-injector RxNorm: 2851968 1 Milliliter(s) SQ QW No Start Date 03/31/2017 Inactive Bystolic 10 mg tablet RxNorm: 113015 1 Tablet(s) PO QAM No Start Date 03/25/2018 Inactive Zithromax Z-Juan Francisco 250 mg tablet RxNorm: 263723 Tablet(s) PO As Direc liane No Start Date 05/11/2017 Inactive Bystolic 20 mg tablet RxNorm: 196641 1 Tablet(s) PO QD No Start Date 03/15/2018 Inactive Questran 4 gram powd er for susp in a packet RxNorm: 362892 1 Unit(s) PO QD No Start Date 12/16/2016 Inactive Vitamin D3 1,000 uni t tablet RxNorm: 902767 1 Tablet(s) PO QD No Start Date 04/01/2018 Inactive Coumadin 5 mg tablet RxNorm: 072307 1 Tablet(s) PO Friday through Friday No Start Date 03/13/2016 Inactive warfarin 5 mg tablet RxNorm: 508348 1 Tablet(s) PO four days per week No Start Date 04/01/2018 Inactive ProAir HFA 90 mcg/ac tuation aerosol inhaler RxNorm: 351424 2 Puff(s) INH Q4H as needed No Start Date 01/19/2019 Inactive Bystolic 5 mg tablet RxNorm: 919264 1 Tablet(s) PO QHS No Start Date 03/25/2018 Inactive Compazine 10 mg tablet RxNorm: 164231 1 Tablet(s) PO TID as needed for nausea No Start Date 12/17/2016 Inactive Pyridium 200 mg tablet RxNorm: 5834197 1 Tablet(s) PO TID for bladder spasms No Start Date 02/26/2017 Inactive hydrocodone 10 mg-ac etaminophen 325 mg tablet RxNorm: 048894 1 Tablet(s) PO as nee ded No Start Date 06/28/2015 Inactive warfarin 7.5 mg tablet RxNorm: 388824 1 Tablet(s) PO on Friday and No Start Date 04/01/2018 Inactive promethazine 25 mg t ablet RxNorm: 800166 1 Tablet(s) PO Q4H as needed for nausea No Start Date 12/04/2015 Inactive Lovenox 30 mg/0.3 mL subcutaneous syringe RxNorm: 694988 1 Milliliter(s) SQ QD No Start Date 06/07/2015 Inactive Vitamin B12 1000mcg Tablet RxNorm: 1/2 Tablet(s) PO QD No Start Date 12/02/2017 Inactive Vitamin B12 1000mcg Tablet RxNorm: 1 Tablet(s) PO M/W/F QD No Start Date 12/02/2017 Inactive Medication Administered No Medication Administered data Immunizations Vaccine Codes Date Status Influenza CVX: 141 03/24 completed Assessments Condition Codes Effectiv e Dates Irritable bowel syndrome with constipation ICD-10: K58.1 ICD-9: 564.1 02/08/2019 Low back pain ICD-10: M54.5 ICD-9: 724.2 02/08/2019 Unspecified urinary incontinence ICD -10: R32 ICD-9: 788.30 02/08/2019 Other fatigue ICD-10: R53.83 ICD-9: 780.79 01/19/2019 COUGH ICD-10: R05 ICD-9: 786.2 01/19/2019 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 ICD-9: [...] unspecified IC D-10: R59.9 ICD-9: 785.6 12/02/2018 Encounter for therapeutic drug level monitoring ICD-10: Z51.81 ICD-9: V58.83 11/30/2018 Acute suppurative otitis media without s pontaneous [...] and perineal pain ICD-10: R10 .2 ICD-9: [id number] 02/10/2017 Hematuria, unspecified ICD-10: R31.9 ICD-9: 599.70 [...] Visit Reason For Visit Effective Dates Notes flank pain 02/08/2019 le ft flank pain [...] 09/10/2018 and bladder pain fatigue 09/08/2018 Maninder nt is concerned lab draw 08/14/2018 otalgia [...] Code Result Date ANTI STREPTOLYSIN O TITER(ASO) 51515 ASO Titr 110 IU/mL 9 MYCOPLASMA ANTIBODY, IFA 91360S3 Mycoplas Ab IgG 1:64 01/20/2019 MYCOPLASMA ANTIBODY, IFA 30913U1 Mycoplas Ab IgM <1:10 01/20/2019 MYCOPLASMA ANTIBODY, IFA 64192D2 Mycoplasma Intp See Below 01/20/2019 LEGIONELLA 6238418 Legio adore Ab <1:128 01/20/2019 HEPATIC FUNCTION PANEL A 47982 Total Protein 6.3 g/dL 01/19/2019 HEPATIC FUNCTION PANEL A 53898 AST 16 U/L 01/19/2019 HEPATIC FUNCTION PANEL A 19532 ALK PHOS 52 U/L 01/19/2019 HEPATIC FUNCTION PANEL A 08470 Bili Total 0.2 mg/dL 01/19/2019 HEPATIC FUNCTION PANEL A 05941 ALT 20 U/L 01/19/2019 HEPATIC FUNCTION PANEL A 25490 ALBUMIN 4.3 g/dL 01/19/2019 HEPATIC FUNCTION PANEL A 41860 Bili Direct 0.1 mg/dL 01/19/2019 PT 8039724 PT 27.5 Seconds 01/19/2019 PT 3240516 INR 2.6 01/19/2019 COMPLETE BLOOD COUNT 4328961 WBC 11.1 10e9/L 01/19/2019 COMPLETE BLOOD COUNT 2871369 RBC 4.14 10e12/L 9 COMPLETE BLOOD COUNT 1422891 HEMOGLOBIN 13.9 g/dL 01/19/2019 COMPLETE BLOOD COUNT 3233304 HEMATOCRIT 40.7 % 01/19/2019 COMPLETE BLOOD COUNT 8518027 MCV 98.3 fL 01/19/2019 COMPLETE BLOOD COUNT 7942752 MCH 33.6 pg 01/19/2019 COMPLETE BLOOD COUNT 9784883 MCHC 34.2 g/dL 01/19/2019 COMPLETE BLOOD COUNT 8804406 PLATELET COUNT 334 10e9/L 01/19/2019 COMPLETE BLOOD COUNT 9256807 Mean Plt Volume 8.9 fL 01/19/2019 COMPLETE BLOOD COUNT 3814586 Neut Auto 60.2 % 01/19/2019 COMPLETE BLOOD COUNT 8854037 Lymph Auto 32.5 % 01/19/2019 COMPLETE BLOOD COUNT 8022731 [place] Auto 6.1 % 01/19/2019 COMPLETE BLOOD COUNT 9024292 RDW 12.5 % 01/19/2019 COMPLETE BLOOD COUNT 2294475 Eos Auto 1.0 % 01/19/2019 COMPLETE BLOOD COUNT 9385032 Baso Auto 0.2 % 01/19/2019 COMPLETE BLOOD COUNT 5217323 Neutrophil Abs 6.68 10e9/L 01/19/2019 COMPLETE BLOOD COUNT 0071710 Lymphocyte Abs 3.61 10e9/L 01/19/2019 COMPLETE BLOOD COUNT 1353699 Monocyte Abs 0.68 10e9/L 01/19/2019 COMPLETE BLOOD COUNT 8427741 Eosinophil Abs 0.11 10e9/L 01/19/2019 COMPLETE BLOOD COUNT 0742884 RDW-SD 43.4 fL 01/19/2019 COMPLETE BLOOD COUNT 1064246 Basophil Abs 0.02 10e9/L 01/19/2019 COMPLETE BLOOD COUNT 4129324 WBC 7.4 10e9/L 12/18/2018 COMPLETE BLOOD COUNT 4879269 RBC 4.32 10e12/L 9 COMPLETE BLOOD COUNT 7714405 HEMOGLOBIN 14.2 g/dL 12/18/2018 COMPLETE BLOOD COUNT 4452685 HEMATOCRIT 42.0 % 12/18/2018 COMPLETE BLOOD COUNT 7818649 MCV 97.2 fL 12/18/2018 COMPLETE BLOOD COUNT 7833022 MCH 32.9 pg 12/18/2018 COMPLETE BLOOD COUNT 7062717 MCHC 33.8 g/dL 12/18/2018 COMPLETE BLOOD COUNT 8042717 PLATELET COUNT 273 10e9/L 12/18/2018 COMPLETE BLOOD COUNT 0627361 Mean Plt Volume 9.4 fL 12/18/2018 COMPLETE BLOOD COUNT 6343259 Neut Auto 57.7 % 12/18/2018 COMPLETE BLOOD COUNT 8360078 Lymph Auto 34.8 % 12/18/2018 COMPLETE BLOOD COUNT 3857976 [place] Auto 6.4 % 12/18/2018 COMPLETE BLOOD COUNT 3121298 RDW 12.6 % 12/18/2018 COMPLETE BLOOD COUNT 7226486 Eos Auto 0.8 % 12/18/2018 COMPLETE BLOOD COUNT 5983751 Baso Auto 0.3 % 12/18/2018 COMPLETE BLOOD COUNT 9077073 Neutrophil Abs 4.27 10e9/L 12/18/2018 COMPLETE BLOOD COUNT 4150032 Lymphocyte Abs 2.58 10e9/L 12/18/2018 COMPLETE BLOOD COUNT 8130755 Monocyte Abs 0.47 10e9/L 12/18/2018 COMPLETE BLOOD COUNT 5506575 Eosinophil Abs 0.06 10e9/L 12/18/2018 COMPLETE BLOOD COUNT 7779095 RDW-SD 43.8 fL 12/18/2018 COMPLETE BLOOD COUNT 7484894 Basophil Abs 0.02 10e9/L 12/18/2018 GFR CALC 9826824 GFR Non Afr Amr >60 mL/min 12/18/2018 GFR CALC 8732807 GFR Afr Amr >60 mL/min 12/18/2018 COMPREHENSIVE METABOLIC 40098 AST 33 U/L 12/18/2018 COMPREHENSIVE METABOLIC 75440 ALT 60 U/L 12/18/2018 COMPREHENSIVE METABOLIC 27165 BUN 9 mg/dL 12/18/2018 COMPREHENSIVE METABOLIC 13623 ALBUMIN 4.3 g/dL 12/18/2018 COMPREHENSIVE METABOLIC 06724 CHLORIDE 104 mmol/L 12/18/2018 COMPREHENSIVE METABOLIC 36989 Bili Total 0.3 mg/dL 12/18/2018 COMPREHENSIVE METABOLIC 37155 ALK PHOS 63 U/L 12/18/2018 COMPREHENSIVE METABOLIC 17800 SODIUM 139 mmol/L 12/18/2018 COMPREHENSIVE METABOLIC 35530 CREATININE 0.55 mg/dL 12/18/2018 COMPREHENSIVE METABOLIC 78855 CALCIUM 9.0 mg/dL 12/18/2018 COMPREHENSIVE METABOLIC 67025 POTASSIUM 3.9 mmol/L 12/18/2018 COMPREHENSIVE METABOLIC 10080 Total Protein 6.4 g/dL 12/18/2018 COMPREHENSIVE METABOLIC 16544 Glucose 83 mg/dL 12/18/2018 COMPREHENSIVE METABOLIC 91818 Bicarbonate 27 mmol/L 12/18/2018 COMPREHENSIVE METABOLIC 28653 AGAP 8 mmol/L 12/18/2018 ERYTHROCYTE SEDIMENTATION RATE 47732 Sed Rate 17 mm/hr 12/04/2018 MEAN GLUC 8972887 Calc M zach Gluc 108 mg/dL 12/03/2018 VITAMIN B 12 47982 VITAM IN B12 329 pg/mL 12/03/2018 COMPREHENSIVE METABOLIC 01118 AST 18 U/L 12/03/2018 COMPREHENSIVE METABOLIC 73327 ALT 21 U/L 12/03/2018 COMPREHENSIVE METABOLIC 97976 BUN 11 mg/dL 12/03/2018 COMPREHENSIVE METABOLIC 39623 ALBUMIN 4.5 g/dL 12/03/2018 COMPREHENSIVE METABOLIC 52075 CHLORIDE 106 mmol/L 12/03/2018 COMPREHENSIVE METABOLIC 36503 Bili Total 0.4 mg/dL 12/03/2018 COMPREHENSIVE METABOLIC 25995 ALK PHOS 49 U/L 12/03/2018 COMPREHENSIVE METABOLIC 60860 SODIUM 138 mmol/L 12/03/2018 COMPREHENSIVE METABOLIC 98579 CREATININE 0.61 mg/dL 12/03/2018 COMPREHENSIVE METABOLIC 99771 CALCIUM 9.2 mg/dL 12/03/2018 COMPREHENSIVE METABOLIC 84585 POTASSIUM 3.7 mmol/L 12/03/2018 COMPREHENSIVE METABOLIC 91151 Total Protein 6.8 g/dL 12/03/2018 COMPREHENSIVE METABOLIC 53966 Glucose 94 mg/dL 12/03/2018 COMPREHENSIVE METABOLIC 02759 Bicarbonate 25 mmol/L 12/03/2018 COMPREHENSIVE METABOLIC 13057 AGAP 7 mmol/L 12/03/2018 FREE T4 99858 T4 Free 0.96 ng/dL 12/03/2018 ASSAY TRIIODOTHYRONINE (T3) 97942 T3 Total 1.02 ng/mL 12/03/2018 GFR CALC 4171193 GFR Non Afr Amr >60 mL/min 12/03/2018 GFR CALC 8825846 GFR Afr Amr >60 mL/min 12/03/2018 GLYCOSYLATED HEMOGLOBIN TEST 60127 Hgb A1c 71337-0 5.4 % 12/03/2018 VITAMIN D TOTAL (25 HYDROXY) 43176 Vitamin D 25 [place] 11.1 ng/mL 12/03/2018 IRON 20196 Iron 106 ug/dL 12/03/2018 THYROID STIMULATING HORMONE 64197 TSH 0.978 uIU/mL 9 COMPLETE BLOOD COUNT 4987134 WBC 9.4 10e9/L 12/03/2018 COMPLETE BLOOD COUNT 2180747 RBC 4.41 10e12/L 9 COMPLETE BLOOD COUNT 1689663 HEMOGLOBIN 14.5 g/dL 12/03/2018 COMPLETE BLOOD COUNT 6448051 HEMATOCRIT 43.0 % 12/03/2018 COMPLETE BLOOD COUNT 1652104 MCV 97.5 fL 12/03/2018 COMPLETE BLOOD COUNT 2260794 MCH 32.9 pg 12/03/2018 COMPLETE BLOOD COUNT 5621126 MCHC 33.7 g/dL 12/03/2018 COMPLETE BLOOD COUNT 0487383 PLATELET COUNT 336 10e9/L 12/03/2018 COMPLETE BLOOD COUNT 2252468 Mean Plt Volume 9.1 fL 12/03/2018 COMPLETE BLOOD COUNT 3575268 Neut Auto 56.4 % 12/03/2018 COMPLETE BLOOD COUNT 3273062 Lymph Auto 35.6 % 12/03/2018 COMPLETE BLOOD COUNT 7611336 [place] Auto 6.8 % 12/03/2018 COMPLETE BLOOD COUNT 4701676 RDW 12.6 % 12/03/2018 COMPLETE BLOOD COUNT 9920828 Eos Auto 1.0 % 12/03/2018 COMPLETE BLOOD COUNT 8437171 Baso Auto 0.2 % 12/03/2018 COMPLETE BLOOD COUNT 1825642 Neutrophil Abs 5.30 10e9/L 12/03/2018 COMPLETE BLOOD COUNT 1606894 Lymphocyte Abs 3.35 10e9/L 12/03/2018 COMPLETE BLOOD COUNT 0817966 Monocyte Abs 0.64 10e9/L 12/03/2018 COMPLETE BLOOD COUNT 5844061 Eosinophil Abs 0.09 10e9/L 12/03/2018 COMPLETE BLOOD COUNT 6660380 RDW-SD 44.3 fL 12/03/2018 COMPLETE BLOOD COUNT 2734757 Basophil Abs 0.02 10e9/L 12/03/2018 FERRITIN 07422 FERRITIN 87.8 ng/mL 12/03/2018 PT 9359151 PT 23.1 Seconds 11/30/2018 PT 5393026 INR 2.0 11/30/2018 ANTI STREPTOLYSIN O TITER(ASO) 70135 ASO Titr 117 IU/mL 9 COMPLETE BLOOD COUNT 7615124 WBC 10.7 10e9/L 11/11/2018 COMPLETE BLOOD COUNT 1423563 RBC 4.42 10e12/L 9 COMPLETE BLOOD COUNT 2635249 HEMOGLOBIN 14.5 g/dL 11/11/2018 COMPLETE BLOOD COUNT 3091098 HEMATOCRIT 43.1 % 11/11/2018 COMPLETE BLOOD COUNT 9712382 MCV 97.5 fL 11/11/2018 COMPLETE BLOOD COUNT 8861663 MCH 32.8 pg 11/11/2018 COMPLETE BLOOD COUNT 7625701 MCHC 33.6 g/dL 11/11/2018 COMPLETE BLOOD COUNT 1354790 PLATELET COUNT 324 10e9/L 11/11/2018 COMPLETE BLOOD COUNT 9449848 Mean Plt Volume 9.2 fL 11/11/2018 COMPLETE BLOOD COUNT 4494680 Neut Auto 62.3 % 11/11/2018 COMPLETE BLOOD COUNT 3337386 Lymph Auto 30.8 % 11/11/2018 COMPLETE BLOOD COUNT 0979734 [place] Auto 6.1 % 11/11/2018 COMPLETE BLOOD COUNT 4886976 RDW 12.7 % 11/11/2018 COMPLETE BLOOD COUNT 1210623 Eos Auto 0.7 % 11/11/2018 COMPLETE BLOOD COUNT 0932473 Baso Auto 0.1 % 11/11/2018 COMPLETE BLOOD COUNT 1157579 Neutrophil Abs 6.67 10e9/L 11/11/2018 COMPLETE BLOOD COUNT 0758511 Lymphocyte Abs 3.30 10e9/L 11/11/2018 COMPLETE BLOOD COUNT 2773325 Monocyte Abs 0.65 10e9/L 11/11/2018 COMPLETE BLOOD COUNT 1183874 Eosinophil Abs 0.07 10e9/L 11/11/2018 COMPLETE BLOOD COUNT 3827088 RDW-SD 44.3 fL 11/11/2018 COMPLETE BLOOD COUNT 7800378 Basophil Abs 0.01 10e9/L 11/11/2018 PT 0510141 PT 23.4 Seconds 10/27/2018 PT 5560914 INR 2.0 10/27/2018 COMPLETE BLOOD COUNT 7859551 WBC 8.1 10e9/L 09/25/2018 COMPLETE BLOOD COUNT 1898752 RBC 4.37 10e12/L 9 COMPLETE BLOOD COUNT 8113234 HEMOGLOBIN 14.5 g/dL 09/25/2018 COMPLETE BLOOD COUNT 1869784 HEMATOCRIT 42.1 % 09/25/2018 COMPLETE BLOOD COUNT [id number] MCV 96.3 fL 09/25/2018 COMPLETE BLOOD COUNT 1259876 MCH 33.2 pg 09/25/2018 COMPLETE BLOOD COUNT 5835409 MCHC 34.4 g/dL 09/25/2018 COMPLETE BLOOD COUNT 9456073 PLATELET COUNT 313 10e9/L 09/25/2018 COMPLETE BLOOD COUNT 1511077 Mean Plt Volume 9.2 fL 09/25/2018 COMPLETE BLOOD COUNT 2468780 Neut Auto 57.4 % 09/25/2018 COMPLETE BLOOD COUNT 9416190 Lymph Auto 35.0 % 09/25/2018 COMPLETE BLOOD COUNT 4538184 [place] Auto 6.3 % 09/25/2018 COMPLETE BLOOD COUNT 2818097 RDW 12.6 % 09/25/2018 COMPLETE BLOOD COUNT 8329541 Eos Auto 1.1 % 09/25/2018 COMPLETE BLOOD COUNT 0788065 Baso Auto 0.2 % 09/25/2018 COMPLETE BLOOD COUNT 7222702 Neutrophil Abs 4.65 10e9/L 09/25/2018 COMPLETE BLOOD COUNT 2992550 Lymphocyte Abs 2.84 10e9/L 09/25/2018 COMPLETE BLOOD COUNT 3489826 Monocyte Abs 0.51 10e9/L 09/25/2018 COMPLETE BLOOD COUNT [id number] Eosinophil Abs 0.09 10e9/L 09/25/2018 COMPLETE BLOOD COUNT 9345769 RDW-SD 43.0 fL 09/25/2018 COMPLETE BLOOD COUNT [id number] Basophil Abs 0.02 10e9/L 09/25/2018 COMPREHENSIVE METABOLIC 29894 AST 15 U/L 09/25/2018 COMPREHENSIVE METABOLIC 89137 ALT 20 U/L 09/25/2018 COMPREHENSIVE METABOLIC 98276 BUN 9 mg/dL 09/25/2018 COMPREHENSIVE METABOLIC 26154 ALBUMIN 4.3 g/dL 09/25/2018 COMPREHENSIVE METABOLIC 06938 CHLORIDE 107 mmol/L 09/25/2018 COMPREHENSIVE METABOLIC 79738 Bili Total 0.4 mg/dL 09/25/2018 COMPREHENSIVE METABOLIC 96861 ALK PHOS 51 U/L 09/25/2018 COMPREHENSIVE METABOLIC 85342 SODIUM 139 mmol/L 09/25/2018 COMPREHENSIVE METABOLIC 50790 CREATININE 0.61 mg/dL 09/25/2018 COMPREHENSIVE METABOLIC 96163 CALCIUM 9.1 mg/dL 09/25/2018 COMPREHENSIVE METABOLIC 59739 POTASSIUM 3.7 mmol/L 09/25/2018 COMPREHENSIVE METABOLIC 06308 Total Protein 6.3 g/dL 09/25/2018 COMPREHENSIVE METABOLIC 89216 Glucose 92 mg/dL 09/25/2018 COMPREHENSIVE METABOLIC 14460 Bicarbonate 24 mmol/L 09/25/2018 COMPREHENSIVE METABOLIC 32055 AGAP 8 mmol/L 09/25/2018 PT 6394763 PT 25.0 Seconds 09/25/2018 PT 3628599 INR 2.2 09/25/2018 GFR CALC 4795379 GFR Non Afr Amr >60 mL/min 09/25/2018 GFR CALC 1261620 GFR Afr Amr >60 mL/min 09/25/2018 PT 0797980 PT 25.7 Seconds 05/12/2018 PT 3544028 INR 2.3 05/12/2018 PT 2240980 PT TNP:Improper Specimen 04/30/2018 PT 8207562 INR TNP:Improper Specimen 04/30/2018 PT 5401079 PT 26.3 Seconds 02/05/2018 PT 2474468 INR 2.4 02/05/2018 ANTI STREPTOLYSIN O TITER(ASO) 41158 ASO Titr 118 IU/mL 8 VITAMIN B 12 60148 VITAM IN B12 302 pg/mL 12/02/2017 VITAMIN D TOTAL (25 HYDROXY) 16691 Vitamin D 25 OH 27.0 ng/mL 12/02/2017 PT 3380352 PT 17.3 Seconds 12/01/2017 PT 5940598 INR 1.4 12/01/2017 ANTI STREPTOLYSIN O TITER(ASO) 40127 ASO Titr 127 IU/mL 8 ANTI STREPTOLYSIN O TITER(ASO) 53453 ASO Titr 130 IU/mL 8 ANTINUCLEAR ANTIBODY SCREEN 92130 MAGALIE Ab Scr <1:80 10/02/2017 RA FACTOR 30806 RA FACTOR <20 IU/mL 10/02/2017 RA FACTOR 36566 RA Facto r Intp Negative 10/02/2017 VITAMIN D TOTAL (25 HYDROXY) 76654 Vitamin D 25 OH 18 ng/mL 8 IRON 43640 Iron 70 ug/dL 10/01/2017 VITAMIN B 12 55409 VITAM IN B12 377 pg/mL 10/01/2017 FREE T4 77589 T4 Free 1.31 ng/dL 10/01/2017 URIC ACID 51361 URIC ACID 3.9 mg/dL 10/01/2017 FERRITIN 80548 FERRITIN 68.0 ng/mL 10/01/2017 THYROID STIMULATING HORMONE 69289 TSH 1.401 uIU/mL 8 GLYCOSYLATED HEMOGLOBIN TEST 95966 Hgb A1c 24179-2 5.4 % 10/01/2017 FOLIC ACID 77589 Folate >24.0 ng/mL 10/01/2017 ASSAY TRIIODOTHYRONINE (T3) 80723 T3 Total 1.0 ng/mL 10/01/2017 ERYTHROCYTE SEDIMENTATION RATE 51674 Sed Rate 5 mm/hr 10/01/2017 MEAN GLUC 7309620 Calc M zach Gluc 108 mg/dL 10/01/2017 PT 5792179 PT 18.6 Seconds 08/07/2017 PT 7754470 INR 1.5 08/07/2017 COMPREHENSIVE METABOLIC 76372 AST 21 U/L 08/07/2017 COMPREHENSIVE METABOLIC 05829 ALT 37 U/L 08/07/2017 COMPREHENSIVE METABOLIC 79823 BUN 14 mg/dL 08/07/2017 COMPREHENSIVE METABOLIC 83779 ALBUMIN 4.5 g/dL 08/07/2017 COMPREHENSIVE METABOLIC 65241 CHLORIDE 104 mmol/L 08/07/2017 COMPREHENSIVE METABOLIC 48773 Bili Total 0.3 mg/dL 08/07/2017 COMPREHENSIVE METABOLIC 96245 ALK PHOS 55 U/L 08/07/2017 COMPREHENSIVE METABOLIC 16020 SODIUM 139 mmol/L 08/07/2017 COMPREHENSIVE METABOLIC 50317 CREATININE 0.77 mg/dL 08/07/2017 COMPREHENSIVE METABOLIC 27577 CALCIUM 9.2 mg/dL 08/07/2017 COMPREHENSIVE METABOLIC 40120 POTASSIUM 3.7 mmol/L 08/07/2017 COMPREHENSIVE METABOLIC 23741 Total Protein 6.5 g/dL 08/07/2017 COMPREHENSIVE METABOLIC 14858 Glucose 101 mg/dL 08/07/2017 COMPREHENSIVE METABOLIC 83509 Bicarbonate 25 mmol/L 08/07/2017 COMPREHENSIVE METABOLIC 21969 AGAP 10 mmol/L 08/07/2017 COMPLETE BLOOD COUNT 1046076 WBC 9.4 10e9/L 08/07/2017 COMPLETE BLOOD COUNT 7752210 RBC 4.38 10e12/L 8 COMPLETE BLOOD COUNT 3430356 HEMOGLOBIN 14.5 g/dL 08/07/2017 COMPLETE BLOOD COUNT 2054057 HEMATOCRIT 42.7 % 08/07/2017 COMPLETE BLOOD COUNT 8685018 MCV 97.5 fL 08/07/2017 COMPLETE BLOOD COUNT 7220535 MCH 33.1 pg 08/07/2017 COMPLETE BLOOD COUNT 1867516 MCHC 34.0 g/dL 08/07/2017 COMPLETE BLOOD COUNT 2309052 PLATELET COUNT 313 10e9/L 08/07/2017 COMPLETE BLOOD COUNT 8076594 Mean Plt Volume 8.6 fL 08/07/2017 COMPLETE BLOOD COUNT 5493856 Neut Auto 51.6 % 08/07/2017 COMPLETE BLOOD COUNT 3917515 Lymph Auto 40.0 % 08/07/2017 COMPLETE BLOOD COUNT 4814751 [place] Auto 6.8 % 08/07/2017 COMPLETE BLOOD COUNT 5252711 RDW 12.9 % 08/07/2017 COMPLETE BLOOD COUNT 1747875 Eos Auto 1.4 % 08/07/2017 COMPLETE BLOOD COUNT 2723444 Baso Auto 0.2 % 08/07/2017 COMPLETE BLOOD COUNT 3601796 Neutrophil Abs 4.85 10e9/L 08/07/2017 COMPLETE BLOOD COUNT 8696426 Lymphocyte Abs 3.76 10e9/L 08/07/2017 COMPLETE BLOOD COUNT 3489750 Monocyte Abs 0.64 10e9/L 08/07/2017 COMPLETE BLOOD COUNT 0501841 Eosinophil Abs 0.13 10e9/L 08/07/2017 COMPLETE BLOOD COUNT 3291889 RDW-SD 45.1 fL 08/07/2017 COMPLETE BLOOD COUNT 9290679 Basophil Abs 0.02 10e9/L 08/07/2017 GFR CALC 9582309 GFR Afr Amr >60 mL/min 08/07/2017 GFR CALC 1953624 GFR Non Afr Amr >60 mL/min 08/07/2017 COMPLETE BLOOD COUNT 9897773 WBC 9.2 10e9/L 07/15/2017 COMPLETE BLOOD COUNT 0712418 RBC 4.70 10e12/L 8 COMPLETE BLOOD COUNT 9000241 HEMOGLOBIN 15.4 g/dL 07/15/2017 COMPLETE BLOOD COUNT 9471035 HEMATOCRIT 46.2 % 07/15/2017 COMPLETE BLOOD COUNT 5540965 MCV 98.3 fL 07/15/2017 COMPLETE BLOOD COUNT 1651725 MCH 32.8 pg 07/15/2017 COMPLETE BLOOD COUNT 7234461 MCHC 33.3 g/dL 07/15/2017 COMPLETE BLOOD COUNT 8768628 PLATELET COUNT 348 10e9/L 07/15/2017 COMPLETE BLOOD COUNT 1874620 Mean Plt Volume 8.9 fL 07/15/2017 COMPLETE BLOOD COUNT 0561812 Neut Auto 60.6 % 07/15/2017 COMPLETE BLOOD COUNT 1438025 Lymph Auto 30.9 % 07/15/2017 COMPLETE BLOOD COUNT 9302282 [place] Auto 7.1 % 07/15/2017 COMPLETE BLOOD COUNT 3319828 RDW 13.1 % 07/15/2017 COMPLETE BLOOD COUNT 9034898 Eos Auto 1.2 % 07/15/2017 COMPLETE BLOOD COUNT 6255485 Baso Auto 0.2 % 07/15/2017 COMPLETE BLOOD COUNT 5200558 Neutrophil Abs 5.58 10e9/L 07/15/2017 COMPLETE BLOOD COUNT 7870771 Lymphocyte Abs 2.84 10e9/L 07/15/2017 COMPLETE BLOOD COUNT 3292909 Monocyte Abs 0.65 10e9/L 07/15/2017 COMPLETE BLOOD COUNT 9430445 Eosinophil Abs 0.11 10e9/L 07/15/2017 COMPLETE BLOOD COUNT 2425405 RDW-SD 46.1 fL 07/15/2017 COMPLETE BLOOD COUNT 8018780 Basophil Abs 0.02 10e9/L 07/15/2017 GFR CALC 2146362 GFR Non Afr Amr >60 mL/min 07/15/2017 GFR CALC 3673949 GFR Afr Amr >60 mL/min 07/15/2017 COMPREHENSIVE METABOLIC 13134 AST 16 U/L 07/15/2017 COMPREHENSIVE METABOLIC 26973 ALT 20 U/L 07/15/2017 COMPREHENSIVE METABOLIC 94549 BUN 13 mg/dL 07/15/2017 COMPREHENSIVE METABOLIC 49576 ALBUMIN 4.6 g/dL 07/15/2017 COMPREHENSIVE METABOLIC 17557 CHLORIDE 106 mmol/L 07/15/2017 COMPREHENSIVE METABOLIC 65061 Bili Total 0.3 mg/dL 07/15/2017 COMPREHENSIVE METABOLIC 27478 ALK PHOS 50 U/L 07/15/2017 COMPREHENSIVE METABOLIC 54702 SODIUM 137 mmol/L 07/15/2017 COMPREHENSIVE METABOLIC 40247 CREATININE 0.62 mg/dL 07/15/2017 COMPREHENSIVE METABOLIC 42071 CALCIUM 9.2 mg/dL 07/15/2017 COMPREHENSIVE METABOLIC 07561 POTASSIUM 3.8 mmol/L 07/15/2017 COMPREHENSIVE METABOLIC 92661 Total Protein 6.7 g/dL 07/15/2017 COMPREHENSIVE METABOLIC 97170 Glucose 83 mg/dL 07/15/2017 COMPREHENSIVE METABOLIC 40814 Bicarbonate 30 mmol/L 07/15/2017 COMPREHENSIVE METABOLIC 78189 AGAP 1 mmol/L 07/15/2017 THYROID STIMULATING HORMONE 67229 TSH 2.111 uIU/mL 201 7 COMPREHENSIVE METABOLIC 65455 AST 33 U/L 08/27/2016 COMPREHENSIVE METABOLIC 43529 ALT 55 U/L 08/27/2016 COMPREHENSIVE METABOLIC 35354 BUN 11 mg/dL 08/27/2016 COMPREHENSIVE METABOLIC 26724 ALBUMIN 4.6 g/dL 08/27/2016 COMPREHENSIVE METABOLIC 66809 CHLORIDE 103 mmol/L 08/27/2016 COMPREHENSIVE METABOLIC 37760 Bili Total 0.3 mg/dL 08/27/2016 COMPREHENSIVE METABOLIC 49740 ALK PHOS 60 U/L 08/27/2016 COMPREHENSIVE METABOLIC 21750 SODIUM 140 mmol/L 08/27/2016 COMPREHENSIVE METABOLIC 84063 CREATININE 0.69 mg/dL 08/27/2016 COMPREHENSIVE METABOLIC 09625 CALCIUM 9.3 mg/dL 08/27/2016 COMPREHENSIVE METABOLIC 86562 POTASSIUM 3.7 mmol/L 08/27/2016 COMPREHENSIVE METABOLIC 65693 Total Protein 6.8 g/dL 08/27/2016 COMPREHENSIVE METABOLIC 73403 Glucose 79 mg/dL 08/27/2016 COMPREHENSIVE METABOLIC 82612 Bicarbonate 25 mmol/L 08/27/2016 COMPREHENSIVE METABOLIC 75593 AGAP 12 mmol/L 08/27/2016 COMPLETE BLOOD COUNT 8997172 WBC 9.4 10e9/L 08/27/2016 COMPLETE BLOOD COUNT 6761117 RBC 4.35 10e12/L 7 COMPLETE BLOOD COUNT 6240237 HEMOGLOBIN 14.2 g/dL 08/27/2016 COMPLETE BLOOD COUNT 6056533 HEMATOCRIT 41.5 % 08/27/2016 COMPLETE BLOOD COUNT 3835109 MCV 95.4 fL 08/27/2016 COMPLETE BLOOD COUNT 3620010 MCH 32.6 pg 08/27/2016 COMPLETE BLOOD COUNT 3155850 MCHC 34.2 g/dL 08/27/2016 COMPLETE BLOOD COUNT 3199846 PLATELET COUNT 289 10e9/L 08/27/2016 COMPLETE BLOOD COUNT 5402154 Mean Plt Volume 9.8 fL 08/27/2016 COMPLETE BLOOD COUNT 2015375 Neut Auto 47.7 % 08/27/2016 COMPLETE BLOOD COUNT 4032057 Lymph Auto 44.2 % 08/27/2016 COMPLETE BLOOD COUNT 0026077 [place] Auto 6.6 % 08/27/2016 COMPLETE BLOOD COUNT 3604156 RDW 12.9 % 08/27/2016 COMPLETE BLOOD COUNT 1039579 Eos Auto 1.4 % 08/27/2016 COMPLETE BLOOD COUNT 3141418 Baso Auto 0.1 % 08/27/2016 COMPLETE BLOOD COUNT 1807212 Neutrophil Abs 4.48 10e9/L 08/27/2016 COMPLETE BLOOD COUNT 5219096 Lymphocyte Abs 4.15 10e9/L 08/27/2016 COMPLETE BLOOD COUNT 3530073 Monocyte Abs 0.62 10e9/L 08/27/2016 COMPLETE BLOOD COUNT 6096474 Eosinophil Abs 0.13 10e9/L 08/27/2016 COMPLETE BLOOD COUNT 4308820 RDW-SD 43.9 fL 08/27/2016 COMPLETE BLOOD COUNT 3820193 Basophil Abs 0.01 10e9/L 08/27/2016 PT 6962698 PT 15.0 Seconds 08/27/2016 PT 1094088 INR 1.2 08/27/2016 GFR CALC 4897821 GFR Afr Amr >60 mL/min 08/27/2016 GFR CALC 0335088 GFR Non Afr Amr >60 mL/min 08/27/2016 GFR CALC 4283383 GFR Non Afr Amr >60 mL/min 05/24/2016 GFR CALC 6149872 GFR Afr Amr >60 mL/min 05/24/2016 COMPREHENSIVE METABOLIC 53016 AST 19 U/L 05/24/2016 COMPREHENSIVE METABOLIC 01286 ALT 23 U/L 05/24/2016 COMPREHENSIVE METABOLIC 19811 BUN 12 mg/dL 05/24/2016 COMPREHENSIVE METABOLIC 55790 ALBUMIN 4.1 g/dL 05/24/2016 COMPREHENSIVE METABOLIC 68097 CHLORIDE 105 mmol/L 05/24/2016 COMPREHENSIVE METABOLIC 47777 Bili Total 0.4 mg/dL 05/24/2016 COMPREHENSIVE METABOLIC 31600 ALK PHOS 52 U/L 05/24/2016 COMPREHENSIVE METABOLIC 13059 SODIUM 136 mmol/L 05/24/2016 COMPREHENSIVE METABOLIC 76484 CREATININE 0.61 mg/dL 05/24/2016 COMPREHENSIVE METABOLIC 26189 CALCIUM 8.8 mg/dL 05/24/2016 COMPREHENSIVE METABOLIC 69228 POTASSIUM 3.8 mmol/L 05/24/2016 COMPREHENSIVE METABOLIC 19393 Total Protein 6.2 g/dL 05/24/2016 COMPREHENSIVE METABOLIC 61906 Glucose 95 mg/dL 05/24/2016 COMPREHENSIVE METABOLIC 12811 Bicarbonate 19 mmol/L 05/24/2016 COMPREHENSIVE METABOLIC 69298 AGAP 12 mmol/L 05/24/2016 PT 6301687 PT 25.7 Seconds 05/24/2016 PT 9890752 INR 2.4 05/24/2016 PT 4743622 PT 22.2 Seconds 04/11/2016 PT 3513701 INR 2.0 04/11/2016 PT 8445182 PT 16.5 Seconds 03/13/2016 PT 8695144 INR 1.4 03/13/2016 THYROID STIMULATING HORMONE 12801 TSH 1.151 uIU/mL 6 COMPLETE BLOOD COUNT 4144730 WBC 10.0 10e9/L 03/12/2016 COMPLETE BLOOD COUNT 3878914 RBC 4.08 10e12/L 6 COMPLETE BLOOD COUNT 0038581 HEMOGLOBIN 13.5 g/dL 03/12/2016 COMPLETE BLOOD COUNT 9020037 HEMATOCRIT 38.8 % 03/12/2016 COMPLETE BLOOD COUNT 2863864 MCV 95.1 fL 03/12/2016 COMPLETE BLOOD COUNT 4201639 MCH 33.1 pg 03/12/2016 COMPLETE BLOOD COUNT 5942333 MCHC 34.8 g/dL 03/12/2016 COMPLETE BLOOD COUNT 8770539 PLATELET COUNT 282 10e9/L 03/12/2016 COMPLETE BLOOD COUNT 3377975 Mean Plt Volume 9.6 fL 03/12/2016 COMPLETE BLOOD COUNT 6183247 Neut Auto 53.5 % 03/12/2016 COMPLETE BLOOD COUNT 0085369 Lymph Auto 39.0 % 03/12/2016 COMPLETE BLOOD COUNT 3021016 [place] Auto 5.9 % 03/12/2016 COMPLETE BLOOD COUNT 0769227 RDW 12.6 % 03/12/2016 COMPLETE BLOOD COUNT 4197058 Eos Auto 1.4 % 03/12/2016 COMPLETE BLOOD COUNT 7441532 Baso Auto 0.2 % 03/12/2016 COMPLETE BLOOD COUNT 7914774 Neutrophil Abs 5.35 10e9/L 03/12/2016 COMPLETE BLOOD COUNT 1700404 Lymphocyte Abs 3.90 10e9/L 03/12/2016 COMPLETE BLOOD COUNT 2089956 Monocyte Abs 0.59 10e9/L 03/12/2016 COMPLETE BLOOD COUNT 4240191 Eosinophil Abs 0.14 10e9/L 03/12/2016 COMPLETE BLOOD COUNT 6768569 RDW-SD 42.7 fL 03/12/2016 COMPLETE BLOOD COUNT 1049466 Basophil Abs 0.02 10e9/L 03/12/2016 COMPREHENSIVE METABOLIC 25184 AST 13 U/L 03/12/2016 COMPREHENSIVE METABOLIC 85542 ALT 11 U/L 03/12/2016 COMPREHENSIVE METABOLIC 75652 BUN 11 mg/dL 03/12/2016 COMPREHENSIVE METABOLIC 00085 ALBUMIN 4.1 g/dL 03/12/2016 COMPREHENSIVE METABOLIC 71336 CHLORIDE 107 mmol/L 03/12/2016 COMPREHENSIVE METABOLIC 84175 Bili Total 0.3 mg/dL 03/12/2016 COMPREHENSIVE METABOLIC 87150 ALK PHOS 41 U/L 03/12/2016 COMPREHENSIVE METABOLIC 23342 SODIUM 137 mmol/L 03/12/2016 COMPREHENSIVE METABOLIC 46215 CREATININE 0.62 mg/dL 03/12/2016 COMPREHENSIVE METABOLIC 47254 CALCIUM 9.0 mg/dL 03/12/2016 COMPREHENSIVE METABOLIC 34257 POTASSIUM 3.8 mmol/L 03/12/2016 COMPREHENSIVE METABOLIC 38974 Total Protein 6.1 g/dL 03/12/2016 COMPREHENSIVE METABOLIC 88758 Glucose 95 mg/dL 03/12/2016 COMPREHENSIVE METABOLIC 47175 Bicarbonate 23 mmol/L 03/12/2016 COMPREHENSIVE METABOLIC 06234 AGAP 7 mmol/L 03/12/2016 GFR CALC 8961449 GFR Non Afr Amr >60 mL/min 03/12/2016 GFR CALC 7047231 GFR Afr Amr >60 mL/min 03/12/2016 PT 2223575 PT 14.4 Seconds 02/12/2016 PT 0237173 INR 1.2 02/12/2016 PT 6915007 PT 26.1 Seconds 02/01/2016 PT 2800298 INR 2.4 02/01/2016 EB VIRUS VCA G/M + EBNA + [place] [address]|8 6665 x 2|53579 EBV VCA Ab IgG 3.70 11/13/2015 [place] VIRUS VCA G/M + [place] + [place] [address]|8 6665 x 2|18762 EBV VCA Ab IgM 0.47 11/13/2015 [place]IRUS VCA G/M + [place] + [place] [address]|8 6665 x 2|71036 EBV Nuclear Ab 2.24 11/13/2015 EB VIRUS VCA G/M + EB[place] + [place] [address]|8 6665 x 2|90096 EBV Early Ab 1.37 11/13/2015 PT 3726500 PT 18.9 Seconds 11/10/2015 PT 1880083 INR 1.6 11/10/2015 PT 3159172 PT 16.8 Seconds 09/29/2015 PT 0275689 INR 1.4 09/29/2015 COMPLETE BLOOD COUNT 7147374 WBC 9.6 10e9/L 09/29/2015 COMPLETE BLOOD COUNT 2145413 RBC 4.51 10e12/L 6 COMPLETE BLOOD COUNT 0892724 HEMOGLOBIN 14.8 g/dL 09/29/2015 COMPLETE BLOOD COUNT 3881962 HEMATOCRIT 43.3 % 09/29/2015 COMPLETE BLOOD COUNT 0143533 MCV 96.0 fL 09/29/2015 COMPLETE BLOOD COUNT 2731949 MCH 32.8 pg 09/29/2015 COMPLETE BLOOD COUNT 5874081 MCHC 34.2 g/dL 09/29/2015 COMPLETE BLOOD COUNT 4862141 PLATELET COUNT 310 10e9/L 09/29/2015 COMPLETE BLOOD COUNT 9601421 Mean Plt Volume 9.7 fL 09/29/2015 COMPLETE BLOOD COUNT 2418883 Neutrophil 60.3 % 09/29/2015 COMPLETE BLOOD COUNT 5981836 Lymph Auto % 32.4 % 09/29/2015 COMPLETE BLOOD COUNT 3079415 Monocyte Auto % 6.5 % 09/29/2015 COMPLETE BLOOD COUNT 7774805 RDW 12.8 % 09/29/2015 COMPLETE BLOOD COUNT 1832379 Eosinophil 0.7 % 09/29/2015 COMPLETE BLOOD COUNT 8096416 Basophil 0.1 % 09/29/2015 COMPLETE BLOOD COUNT 1620293 Neutrophil Abs 5.79 10e9/L 09/29/2015 COMPLETE BLOOD COUNT 3128097 Lymphoctye Abs 3.11 10e9/L 09/29/2015 COMPLETE BLOOD COUNT 8528462 Monocyte Abs 0.62 10e9/L 09/29/2015 COMPLETE BLOOD COUNT 7838484 Eosinophil Abs 0.07 10e9/L 09/29/2015 COMPLETE BLOOD COUNT 8748869 Basophil Abs 0.01 10e9/L 09/29/2015 COMPLETE BLOOD COUNT 5364133 RDW-SD 43.6 fL 09/29/2015 IRON 22335 Iron 86 ug/dL 09/29/2015 COMPLETE BLOOD COUNT 9658602 WBC 9.6 10e9/L 09/29/2015 COMPLETE BLOOD COUNT 7057043 RBC 4.51 10e12/L 6 COMPLETE BLOOD COUNT 3117164 HEMOGLOBIN 14.8 g/dL 09/29/2015 COMPLETE BLOOD COUNT 0580034 HEMATOCRIT 43.3 % 09/29/2015 COMPLETE BLOOD COUNT 5061794 MCV 96.0 fL 09/29/2015 COMPLETE BLOOD COUNT 4837071 MCH 32.8 pg 09/29/2015 COMPLETE BLOOD COUNT 3721688 MCHC 34.2 g/dL 09/29/2015 COMPLETE BLOOD COUNT 8501321 PLATELET COUNT 310 10e9/L 09/29/2015 COMPLETE BLOOD COUNT 7037057 Mean Plt Volume 9.7 fL 09/29/2015 COMPLETE BLOOD COUNT 1909625 Neutrophil 60.3 % 09/29/2015 COMPLETE BLOOD COUNT 0652378 Lymph Auto % 32.4 % 09/29/2015 COMPLETE BLOOD COUNT 6021934 Monocyte Auto % 6.5 % 09/29/2015 COMPLETE BLOOD COUNT 7283095 Eosinophil 0.7 % 09/29/2015 COMPLETE BLOOD COUNT 4634736 RDW 12.8 % 09/29/2015 COMPLETE BLOOD COUNT 3415427 Basophil 0.1 % 09/29/2015 COMPLETE BLOOD COUNT 2268166 Neutrophil Abs 5.79 10e9/L 09/29/2015 COMPLETE BLOOD COUNT 1563988 Lymphoctye Abs 3.11 10e9/L 09/29/2015 COMPLETE BLOOD COUNT 0684575 Monocyte Abs 0.62 10e9/L 09/29/2015 COMPLETE BLOOD COUNT 9307269 Eosinophil Abs 0.07 10e9/L 09/29/2015 COMPLETE BLOOD COUNT 7571423 RDW-SD 43.6 fL 09/29/2015 COMPLETE BLOOD COUNT 0993107 Basophil Abs 0.01 10e9/L 09/29/2015 PT 7171476 PT 16.8 Seconds 09/29/2015 PT 5768877 INR 1.4 09/29/2015 IRON 44322 Iron 86 ug/dL 09/29/2015 PT GA IVANNA 84419 PRO T PAULIE 19.4 SEC 07/27/2015 PT GA IVANNA 92548 INR M CMC 1.7 07/27/2015 PT GA IVANNA 40076 PRO T PAULIE 21.4 SEC 06/21/2015 PT GA IVANNA 86464 INR M CMC 1.9 06/21/2015 PT GA IVANNA 44868 PRO T PAULIE 24.5 SEC 05/24/2015 PT GA IVANNA 27756 INR M CMC 2.3 05/24/2015 Review of Systems System Result Effective Dates Constitutional No fever 02/08/2019 Constitutional No fatigue [...] Date URINE CULTURE/ COLON Y COUNT CPT-4: 31663 02/08/2019 ROUTINE VENIPUNCTURE CPT-4: 70826 01/19/2019 PROTHROMBIN TIME CPT-4: 33668 01/19/2019 COMPLETE CBC W/AUTO DIFF WBC CPT-4: 18750 01/19/2019 ANTISTREPTOLYSIN O T ITER CPT-4: 82229 01/19/2019 HEPATIC FUNCTION PANEL CPT-4: 09733 01/19/2019 MYCOPLASMA ANTIBODY, IFA CPT-4: 86141A6 01/19/2019 RESPIRATORY CULTURE & STAIN CPT-4: 68553 01/19/2019 STREP A ASSAY W/OPTIC CPT-4: 33442 01/19/2019 THER/PROPH/DIAG INJ SC/IM CPT-4: 80483 01/04/2019 TRIAMCINOLONE ACET I [place] NOS CPT-4: J3301 01/04/2019 ROUTINE VENIPUNCTURE CPT-4: 10099 12/18/2018 COMPLETE CBC W/AUTO DIFF WBC CPT-4: 59883 12/18/2018 COMPREHEN METABOLIC PANEL CPT-4: 92881 12/18/2018 HYDRATION IV INFUSIO N INIT CPT-4: 61563 12/16/2018 STREP A ASSAY W/OPTIC CPT-4: 31915 12/02/2018 ROUTINE VENIPUNCTURE CPT-4: 08885 11/30/2018 PT CPT-4: 5589510 11/30/2018 CEFTRIAXONE SODIUM I NJECTION CPT-4: J0696 11/30/2018 THER/PROPH/DIAG INJ SC/IM CPT-4: 90413 11/30/2018 URINE CULTURE/ COLON Y COUNT CPT-4: 64199 11/20/2018 URINALYSIS NONAUTO W /O SCOPE CPT-4: 48676 11/20/2018 CEFTRIAXONE SODIUM I NJECTION CPT-4: J0696 11/12/2018 THER/PROPH/DIAG INJ SC/IM CPT-4: 39356 11/12/2018 STREP A ASSAY W/OPTIC CPT-4: 21831 11/11/2018 CEFTRIAXONE SODIUM I NJECTION CPT-4: J0696 11/11/2018 THER/PROPH/DIAG INJ SC/IM CPT-4: 70267 11/11/2018 ROUTINE VENIPUNCTURE CPT-4: 79193 11/11/2018 ANTISTREPTOLYSIN O T ITER CPT-4: 53456 11/11/2018 COMPLETE CBC W/AUTO DIFF WBC CPT-4: 25703 11/11/2018 ROUTINE VENIPUNCTURE CPT-4: 75793 10/27/2018 PT CPT-4: 5315914 10/27/2018 THER/PROPH/DIAG INJ SC/IM CPT-4: 34644 10/09/2018 TRIAMCINOLONE ACET I [place] NOS CPT-4: J3301 10/09/2018 CEFTRIAXONE SODIUM I NJECTION CPT-4: J0696 10/08/2018 THER/PROPH/DIAG INJ SC/IM CPT-4: 35761 10/08/2018 CEFTRIAXONE SODIUM I NJECTION CPT-4: J0696 10/07/2018 THER/PROPH/DIAG INJ SC/IM CPT-4: 37760 10/07/2018 ROUTINE VENIPUNCTURE CPT-4: 73641 09/25/2018 COMPREHEN METABOLIC PANEL CPT-4: 22892 09/25/2018 COMPLETE CBC W/AUTO DIFF WBC CPT-4: 05876 09/25/2018 PT CPT-4: 1669841 09/25/2018 URINE CULTURE/ COLON Y COUNT CPT-4: 07337 09/10/2018 URINALYSIS NONAUTO W /O SCOPE CPT-4: 44499 09/10/2018 CEFTRIAXONE SODIUM I NJECTION CPT-4: J0696 09/08/2018 THER/PROPH/DIAG INJ SC/IM CPT-4: 53320 09/08/2018 ROUTINE VENIPUNCTURE CPT-4: 02460 08/14/2018 PT CPT-4: 6580379 08/14/2018 CEFTRIAXONE SODIUM I NJECTION CPT-4: J0696 07/02/2018 THER/PROPH/DIAG INJ SC/IM CPT-4: 29061 07/02/2018 THER/PROPH/DIAG INJ SC/IM CPT-4: 63171 07/02/2018 TRIAMCINOLONE ACET I [place] NOS CPT-4: J3301 07/02/2018 ROUTINE VENIPUNCTURE CPT-4: 30995 06/22/2018 ANTISTREPTOLYSIN O T ITER CPT-4: 12320 06/22/2018 ROUTINE VENIPUNCTURE CPT-4: 50028 06/17/2018 PROTHROMBIN TIME CPT-4: 86759 06/17/2018 URINE CULTURE/ COLON Y COUNT CPT-4: 84313 06/17/2018 CEFTRIAXONE SODIUM I NJECTION CPT-4: J0696 05/12/2018 THER/PROPH/DIAG INJ SC/IM CPT-4: 20962 05/12/2018 PROTHROMBIN TIME CPT-4: 01147 05/11/2018 CEFTRIAXONE SODIUM I NJECTION CPT-4: J0696 05/11/2018 THER/PROPH/DIAG INJ SC/IM CPT-4: 89528 05/11/2018 ROUTINE VENIPUNCTURE CPT-4: 67771 04/30/2018 PROTHROMBIN TIME CPT-4: 58290 04/30/2018 THER/PROPH/DIAG INJ SC/IM CPT-4: 48509 04/02/2018 TRIAMCINOLONE ACET I [place] NOS CPT-4: J3301 04/02/2018 IIV4 VACCINE 3 YRS+ IM AND UP CPT-4: 83908 03/24/2018 IMMUNIZATION ADMIN CPT- 4: 70132 03/24/2018 ROUTINE VENIPUNCTURE CPT-4: 28699 03/24/2018 PT CPT-4: 8087851 03/24/2018 PROTHROMBIN TIME CPT-4: 16659 02/24/2018 ROUTINE VENIPUNCTURE CPT-4: 09674 02/24/2018 ROUTINE VENIPUNCTURE CPT-4: 42378 02/05/2018 PROTHROMBIN TIME CPT-4: 38863 02/05/2018 URINE CULTURE/ COLON Y COUNT CPT-4: 79883 02/05/2018 CEFTRIAXONE SODIUM I NJECTION CPT-4: J0696 01/29/2018 THER/PROPH/DIAG INJ SC/IM CPT-4: 26976 01/29/2018 CEFTRIAXONE SODIUM I NJECTION CPT-4: J0696 01/28/2018 THER/PROPH/DIAG INJ SC/IM CPT-4: 59012 01/28/2018 URINALYSIS NONAUTO W /O SCOPE CPT-4: 95876 01/26/2018 URINE CULTURE/ COLON Y COUNT CPT-4: 46403 01/26/2018 ROUTINE VENIPUNCTURE CPT-4: 91619 01/01/2018 PROTHROMBIN TIME CPT-4: 84080 01/01/2018 THER/PROPH/DIAG INJ SC/IM CPT-4: 56744 12/25/2017 TRIAMCINOLONE ACET I NJ NOS CPT-4: J3301 12/25/2017 DEXAMETHASONE SODIUM PHOS CPT-4: J1100 12/25/2017 STREP A ASSAY W/OPTIC CPT-4: 22943 12/11/2017 CEFTRIAXONE SODIUM I NJECTION CPT-4: J0696 12/11/2017 THER/PROPH/DIAG INJ SC/IM CPT-4: 32949 12/11/2017 ROUTINE VENIPUNCTURE CPT-4: 77451 12/01/2017 ANTISTREPTOLYSIN O T ITER CPT-4: 31619 12/01/2017 PROTHROMBIN TIME CPT-4: 62821 12/01/2017 VITAMIN D TOTAL (25 HYDROXY) CPT-4: 35170 12/01/2017 VITAMIN B-12 CPT-4: 53774 12/01/2017 [facility] CPT-4: 05022 11/05/2017 ROUTINE VENIPUNCTURE CPT-4: 29221 10/14/2017 ANTISTREPTOLYSIN O T ITER CPT-4: 69545 10/14/2017 ROUTINE VENIPUNCTURE CPT-4: 18813 10/06/2017 PROTHROMBIN TIME CPT-4: 95997 10/06/2017 THER/PROPH/DIAG INJ SC/IM CPT-4: 51582 10/06/2017 TRIAMCINOLONE ACET I NJ NOS CPT-4: J3301 10/06/2017 ROUTINE VENIPUNCTURE CPT-4: 14596 10/01/2017 VITAMIN B-12 CPT-4: 03409 10/01/2017 FOLIC ACID CPT-4: 67198 10/01/2017 ASSAY THYROID STIM H ORMONE CPT-4: 80617 10/01/2017 ASSAY OF FREE THYROXINE CPT-4: 41374 10/01/2017 ASSAY TRIIODOTHYRONI NE (T3) CPT-4: 07800 10/01/2017 ASSAY OF BLOOD/URIC ACID CPT-4: 64664 10/01/2017 RHEUMATOID FACTOR QUANT CPT-4: 47234 10/01/2017 RBC SED RATE AUTOMATED CPT-4: 43482 10/01/2017 ANTISTREPTOLYSIN O T ITER CPT-4: 78772 10/01/2017 ASSAY OF IRON CPT-4: 22296 10/01/2017 ASSAY OF FERRITIN CPT-4: 90416 10/01/2017 ANTINUCLEAR ANTIBODIES CPT-4: 12287 10/01/2017 A1C HPLC CPT-4: 78799 10/01/2017 VITAMIN D TOTAL (25 HYDROXY) CPT-4: 23334 10/01/2017 THER/PROPH/DIAG INJ SC/IM CPT-4: 64016 09/05/2017 TRIAMCINOLONE ACET I NJ NOS CPT-4: J3301 09/05/2017 URINALYSIS NONAUTO W /O SCOPE CPT-4: 69253 09/05/2017 URINE CULTURE/ COLON Y COUNT CPT-4: 47996 09/05/2017 ROUTINE VENIPUNCTURE CPT-4: 51562 09/04/2017 PROTHROMBIN TIME CPT-4: 71167 09/04/2017 ROUTINE VENIPUNCTURE CPT-4: 72471 08/07/2017 COMPLETE CBC W/AUTO DIFF WBC CPT-4: 14650 08/07/2017 COMPREHEN METABOLIC PANEL CPT-4: 97330 08/07/2017 PROTHROMBIN TIME CPT-4: 51949 08/07/2017 INFLUENZA ASSAY W/OPTIC CPT-4: 89848 07/15/2017 ROUTINE VENIPUNCTURE CPT-4: 29158 07/15/2017 COMPREHEN METABOLIC PANEL CPT-4: 67709 07/15/2017 COMPLETE CBC W/AUTO DIFF WBC CPT-4: 52008 07/15/2017 CEFTRIAXONE SODIUM I NJECTION CPT-4: J0696 07/04/2017 THER/PROPH/DIAG INJ SC/IM CPT-4: 40043 07/04/2017 THER/PROPH/DIAG INJ SC/IM CPT-4: 98906 07/04/2017 TRIAMCINOLONE ACET I NJ NOS CPT-4: J3301 07/04/2017 CEFTRIAXONE SODIUM I NJECTION CPT-4: J0696 07/02/2017 THER/PROPH/DIAG INJ SC/IM CPT-4: 14060 07/02/2017 CEFTRIAXONE SODIUM I NJECTION CPT-4: J0696 07/01/2017 THER/PROPH/DIAG INJ SC/IM CPT-4: 31573 07/01/2017 ROUTINE VENIPUNCTURE CPT-4: 11588 06/19/2017 PROTHROMBIN TIME CPT-4: 96791 06/19/2017 THER/PROPH/DIAG INJ SC/IM CPT-4: 59437 04/01/2017 TRIAMCINOLONE ACET I NJ NOS CPT-4: J3301 04/01/2017 ROUTINE VENIPUNCTURE CPT-4: 38558 02/10/2017 PROTHROMBIN TIME CPT-4: 33251 02/10/2017 URINALYSIS NONAUTO W /O SCOPE CPT-4: 32730 02/10/2017 URINE CULTURE/ COLON Y COUNT CPT-4: 70927 02/10/2017 ROUTINE VENIPUNCTURE CPT-4: 43624 02/05/2017 PROTHROMBIN TIME CPT-4: 91450 02/05/2017 THROAT CULTURE CPT-4: 43059 02/03/2017 STREP A ASSAY W/OPTIC CPT-4: 40552 01/13/2017 ROUTINE VENIPUNCTURE CPT-4: 74316 12/18/2016 PROTHROMBIN TIME CPT-4: 01195 12/18/2016 URINE CULTURE/ COLON Y COUNT CPT-4: 51103 08/27/2016 ASSAY THYROID STIM H ORMONE CPT-4: 94587 08/27/2016 COMPREHEN METABOLIC PANEL CPT-4: 01027 08/27/2016 COMPLETE CBC W/AUTO DIFF WBC CPT-4: 62549 08/27/2016 PROTHROMBIN TIME CPT-4: 94444 08/27/2016 ROUTINE VENIPUNCTURE CPT-4: 28326 08/27/2016 ROUTINE VENIPUNCTURE CPT-4: 08395 05/24/2016 COMPREHEN METABOLIC PANEL CPT-4: 78583 05/24/2016 PROTHROMBIN TIME CPT-4: 06630 05/24/2016 URINALYSIS NONAUTO W /O SCOPE CPT-4: 69452 04/23/2016 URINE CULTURE/ COLON Y COUNT CPT-4: 12198 04/23/2016 PRESCRIP TRANSMIT A ERX SY CPT-4: G8553 04/23/2016 AEROBIC WOUND CULTUR E & STN CPT-4: 21051 04/17/2016 ROUTINE VENIPUNCTURE CPT-4: 01760 04/11/2016 PROTHROMBIN TIME CPT-4: 71058 04/11/2016 ROUTINE VENIPUNCTURE CPT-4: 83107 03/12/2016 COMPLETE CBC W/AUTO DIFF WBC CPT-4: 00334 03/12/2016 COMPREHEN METABOLIC PANEL CPT-4: 87205 03/12/2016 ASSAY THYROID STIM H ORMONE CPT-4: 26287 03/12/2016 PROTHROMBIN TIME CPT-4: 80243 03/12/2016 ROUTINE VENIPUNCTURE CPT-4: 66843 02/12/2016 PROTHROMBIN TIME CPT-4: 37791 02/12/2016 ROUTINE VENIPUNCTURE CPT-4: 80807 02/01/2016 PROTHROMBIN TIME CPT-4: 23104 02/01/2016 ROUTINE VENIPUNCTURE CPT-4: 62497 01/22/2016 PROTHROMBIN TIME CPT-4: 78906 01/22/2016 ROUTINE VENIPUNCTURE CPT-4: 07784 11/10/2015 PROTHROMBIN TIME CPT-4: 77236 11/10/2015 CEFTRIAXONE SODIUM I NJECTION CPT-4: J0696 11/10/2015 THER/PROPH/DIAG INJ SC/IM CPT-4: 38744 11/10/2015 EB VIRUS VCA G/M + E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 22009 06/08/2015 ([id number]) OFFICE/OUTPA TIENT VISIT EST Diagnosis: Dysuria[ICD10: R30.0] Kristine BRAMBILA [facility] CPT-4: 05032 05/31/2015 OFFICE/OUTPATIENT SIT NEW Diagnosis: Localized enlarged lymph nodes[ICD10: R59.0] Diagnosis: Benign intracranial hypertension[ICD10: G93.2] Diagnosis: Personal history of pulmonary embolism[ICD10: Z86.711] Diagnosis: retirement (current) use of anticoagulants[ICD10: Z79.01] Diagnosis: Tachycardia, unspecified[ICD10: R00.0] Meli YULINE S. O RENDER [employer] [employer] CPT-4: 39942 05/24/2015 Plan of Care Planned Activity Notes C odes Status Date Visit Diagnosis Plan: Unspecified urinary incontinence Discussion: [...] ICD-10 : K58.1 02/08/2019 Appointment: Ivon Sky [address] [place], [place] [id number] ACUTE ILLNESS 02/08/2019 Patient Education: Augustus-CHYNA- [employer] Coupon [id number] https://www.Vapotherm/samplemd/resources/getResource/61/6s89wfm2-4835-2241-5a Completed 02/08/2019 Visit Diagnosis Plan: Other fatigue [...] ICD-10 : J02.8 01/19/2019 Visit Diagnosis Plan: retirement (current ) use of anticoagulants Discussion: pt/inr [...] ICD-10 : R05 01/19/2019 Appointment: Ivon Sky [address] [place] [address] ACUTE ILLNESS 01/19/2019 Visit Diagnosis Plan: Otalgia, [...] ICD-10 : R53.83 01/04/2019 Appointment: Ivon Sky [address] [place] [address] ACUTE ILLNESS 01/04/2019 Appointment: Kristine Brambila WPtel: [address] [place] [address] LAB 12/18/2018 Appointment: Kristine Brambila WPtel: [address] [place] [address] ACUTE ILLNESS 12/16/2018 Visit Diagnosis Plan: Benign [...] : R53.83 12/03/2018 Appointment: Kristine Brambila WPtel: [address] [place] [address] ACUTE ILLNESS 12/03/2018 Visit Diagnosis Plan: Enlarged [...] ICD-10 : J02.9 12/02/2018 Appointment: Ivon Sky [address] [place] [address] FOLLOW UP 12/02/2018 Visit Diagnosis Plan: retirement (current ) use of anticoagulants Discussion: pt/inr drawn in office ICD-9 : V58.61 ICD-10 : Z79.01 11/30/2018 Visit Diagnosis Plan: Acute suppurative otitis media without spontaneous rupture of ear drum, left ear Discussion: rocephin shot given in office. instructed to call or rtc with any new or worsening concerns. tylenol prn pain. ICD-9 : 382.00 ICD-10 : H66.002 11/30/2018 Appointment: Ivon Sky [address] [place] [address] ACUTE ILLNESS 11/30/2018 Patient Education: Coumadin- [employer] Coupon [id number] https://www.Vapotherm/samplemd/resources/getResource/61/0966a073-5n95-33s0-21 Completed 11/30/2018 Appointment: Kristine Brambila WPtel: [address] [place] [address] UA 11/20/2018 Appointment: Kristine Brambila WPtel: [address] [place] [address] INJECTION 11/12/2018 Visit Diagnosis Plan: Streptococcal pharyngitis Discussion: Strep A- positive ASO titer today along with CBC. Rocephin 1 gram. RTC tmrw for another injection. Patient states understanding. ICD-9 : 034.0 ICD-10 : J02.0 11/11/2018 Appointment: Lulu Navarro [address] [place] [address] ACUTE ILLNESS 11/11/2018 Appointment: Kristine Brambila WPtel: [address] [place] [address] ACUTE ILLNESS 10/27/2018 Appointment: Kristine Brambila WPtel: [address] [facility] [place] INJECTION 10/09/2018 Visit Diagnosis Plan: Acute recurrent maxillary sinusi tis Discussion: Rocephin 1 gram administered in clinic- patient tolerated well. Continue with supportive treatment at home as well. Tylenol for headache. Salt water gargles and sinus rinses advised. Patient states understanding. ICD-9 : 461.0 ICD-10 : J01.10/08/2018 Appointment: Lulu Navarro [address] [place], [place] [phone] [place] INJECTION 10/08/2018 Visit Diagnosis Plan: Acute recurrent maxillary sinusi tis Discussion: Rocephin- 1 gram administered in clinic. Patient tolerated well. Sinus rinses encouraged. Rest and fluids. Tylenol or Motrin for pain and fever. FU PRN. Patient states understanding. ICD-9 : 461.0 ICD-10 : J01.10/07/2018 Appointment: Lulu Navarro [address] [place], [place] [id number] ACUTE ILLNESS 10/07/2018 Visit Diagnosis Plan: Dizziness [...] ICD-10 : R42 09/25/2018 Appointment: Lulu Navarro [address] [place], [place] [phone] ACUTE ILLNESS 09/25/2018 Appointment: Kristine Brambila WPtel: [facility] UA 09/10/2018 Visit Diagnosis Plan: Furuncle right [...] : R22.1 09/08/2018 Appointment: Kristine Brambila WPtel: [address] [place] [address] ACUTE ILLNESS 09/08/2018 Patient Education: cefdinir- [employer] Coupon [id number] https://www.Vapotherm/samplemd/resources/getResource/61/m4840b09-8g03-7jqr-x7 Completed 09/08/2018 Appointment: Kristine Brambila WPtel: [address] [place] [address] LAB 08/14/2018 Visit Diagnosis Plan: Acute sinusitis, [...] ICD-10 : H92.02 07/23/2018 Appointment: Ivon Sky [address] [place] [address] ACUTE ILLNESS 07/23/2018 Patient Education: cyclobenzaprine- Opti mizeRX Coupon [id number] https://www.Vapotherm/samplemd/resources/getResource/61/z564r8rb-p813-526w-xs [email or web address].pdf Completed 07/23/2018 Visit Diagnosis Plan: Streptococcal infe ction, unspecified site Discussion: Randy Dove Sees dentist today t o assess tooth ICD-9 : 041.00 ICD-10 : A49.1 07/08/2018 Appointment: Kristine Brambila WPtel: [address] [place] [address] FOLLOW UP 07/08/2018 Patient Education: penicillin V potassiu m- Optimize[employer] Coupon [id number] https://www.Vapotherm/samplemd/resources/getResource/61/qd320274-3640-1515-89 -29878pl26i0h.pdf Completed 07/08/2018 Visit Diagnosis Plan: Localized enlarged [...] ICD-10 : K04.6 07/02/2018 Appointment: Ivon Sky [address] [place] [address] ACUTE ILLNESS 07/02/2018 Appointment: Kristine Brambila WPtel: [address] [place], [place] [phone] [place] LAB 06/22/2018 Appointment: Kristine Brambila WPtel: [address] [place], [place] [phone] [place] [address] 06/17/2018 Visit Diagnosis Plan: Acute sinusitis, unspecified Discussion: dc keflex. start cefdinir daily for 10 days. saline up nares prn congestion. if no improvement after antibiotics or worsening symtpoms, call clinic. 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 clindamycin prescribed for patient to take as directed. instructed to stop nasal sprays due to worsening pain/irritation and only use saline rinse up nares for now. call with any new or worsening symptoms. ICD-9 : 461.9 ICD-10 : J01.90 04/02/2018 Appointment: Ivon Sky [address] [place], [place] [phone] ACUTE ILLNESS 04/02/2018 Patient Education: Patient Medication Summary Completed 04/02/2018 Appointment: Kristine Brambila WPtel: [address] [place], [place] [phone] LAB 03/24/2018 Patient Education: Patient Medication Summary [...] ICD-10 : G43.909 03/16/2018 Appointment: Ivon Sky [address] [place] [address] ACUTE ILLNESS 03/16/2018 Patient Education: Patient Medication Summary Completed 03/16/2018 Appointment: Kristine Brambila WPtel: [address] [place] [address] LAB 02/24/2018 Patient Education: Patient Medication Summary Completed 02/24/2018 Appointment: Kristine Brambila WPtel: [address] [place] [address] [place] RESCHEDULED 02/18/2018 Visit Diagnosis Plan: Abdominal distension (gaseous) Discussion: Wanda Restora Rx 1 daily Follow Up: 2 weeks ICD-9 : 787.3 ICD-10 : R14.0 02/16/2018 Visit Diagnosis Plan: Epigastric pain Discussion: Pepcid BID ICD-9 : 789.06 ICD-10 : R10.13 02/16/2018 Visit Diagnosis Plan: Diarrhea, unspecified Discussion: Flagyl ICD-9 : 787.91 ICD-10 : R19.7 02/16/2018 Appointment: Kristine Brambila WPtel: [address] [place] [address] ACUTE ILLNESS 02/16/2018 Patient Education: Patient Medication Summary Completed 02/16/2018 Appointment: Kristine Brambila WPtel: [address] [place] [address] [place] INJECTION 02/05/2018 Patient Education: Patient Medication Summary Completed 02/05/2018 Appointment: Kristine Brambila WPtel: [address] [place] [address] [place] INJECTION 01/29/2018 Patient Education: Patient Medication Summary Completed 01/29/2018 Appointment: Kristine Brambila WPtel: [id number] [place] INJECTION 01/28/2018 Patient Education: Patient Medication [...] ICD-10 : H66.001 01/26/2018 Appointment: Ivon Sky 504 [facility]66[facility] ACUTE ILLNESS 01/26/2018 Patient Education: Patient Medication [...] ICD-10 : K13.79 01/01/2018 Appointment: Ivon Sky [address] [place] [address] ACUTE ILLNESS 01/01/2018 Patient Education: Patient Medication [...] ICD-10 : G43.909 12/25/2017 Appointment: Ivon Sky [address] [place] [address] ACUTE ILLNESS 12/25/2017 Patient Education: Patient Medication Summary Completed 12/25/2017 Visit Diagnosis Plan: Acute pharyngitis, unspecified Discussion: rapid strep negative. rocephin injection given in office. clindamycin prescribed as well to start tomorrow for 10 days. increase fluid intake. call or rtc next week if new or worsening symptoms. ICD-9 : 462 ICD-10 : J02.9 12/11/2017 Appointment: Ivon Sky [address] [place] [address] ACUTE ILLNESS 12/11/2017 Patient Education: Patient Medication Summary Completed 12/11/2017 Appointment: Kristine Brambila WPtel: [address] [place] [address] LAB 12/01/2017 Patient Education: Patient Medication Summary Completed 12/01/2017 Visit Diagnosis Plan: Encounter for gyne cological examination (general) (routine) without abnormal findings Discussion: Pap done as has a history of choriocarcinoma Had mammogram last month ICD-9 : V72.31 ICD-10 : Z01.419 11/05/2017 Appointment: Kristine Brambila WPtel: [address] [place] [address] Annual Well Visit 11/05/2017 Patient Education: Patient Medication Summary Completed 11/05/2017 Appointment: Kristine Brambila WPtel: [address] [place] [address] LAB 10/14/2017 Patient Education: Patient Medication Summary Completed 10/14/2017 Care Plan: X-RAY EXAM OF SHOULDER right LOINC : 29900-8 Pending 10/07/2017 Visit Diagnosis Plan: Pain in right shoulder Discussion: xray ordered of right shoulder to rule out fracture. 40 mg kenalog given as one shot to assist with pain. 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 ICD-9 : V58.61 ICD-10 : Z79.01 10/06/2017 Appointment: Ivon Sky [address] [place] [address] ACUTE ILLNESS 10/06/2017 Patient Education: Patient Medication [...] 443.0 ICD-10 : I73.00 10/01/2017 Appointment: Kristine Brambilatel: [address] ACUTE ILLNESS 10/01/2017 Patient Education: Patient Medication [...] ICD-10 : T23.262A 09/10/2017 Appointment: Ivon Sky [address] ACUTE ILLNESS 09/10/2017 Patient Education: Patient Medication Summary Completed 09/10/2017 Appointment: Kristine Brambila WPtel: [address] [facility] [place] INJECTION 09/05/2017 Patient Education: Patient Medication Summary Completed 09/05/2017 Appointment: Kristine Brambila WPtel: [address] [place], [place] [address] [place] LAB 09/04/2017 Patient Education: Patient Medication Summary Completed 09/04/2017 Appointment: Kristine Brambila WPtel: [address] [place], [place] [address] [place] LAB 08/07/2017 Patient Education: Patient Medication Summary Completed 08/07/2017 Patient Education: Patient Medication Summary Completed 07/21/2017 Care Plan: CHEST X-RAY 2VW FRONTAL&LATL LOINC : 86822-6 Pending 07/21/2017 Visit Diagnosis Plan: Acute upper [...] ICD-10 : K21.9 07/15/2017 Appointment: Ivon Sky [address] [place] [address] ACUTE ILLNESS 07/15/2017 Patient Education: Patient Medication Summary Completed 07/15/2017 Appointment: Kristine Brambila WPtel: [address] [place], [place] [address] [place] INJECTION 07/04/2017 Patient Education: Patient Medication Summary Completed 07/04/2017 Appointment: Kristine Brambila WPtel: [address] [place], [place] [phone] [place] INJECTION 07/02/2017 Patient Education: Patient Medication [...] : H66.92 07/01/2017 Appointment: Ivon Sky 504 [facility] ACUTE ILLNESS 07/01/2017 Patient Education: Patient Medication Summary Completed 07/01/2017 Care Plan: US EXAM OF HEAD AND NECK Pending 07/01/2017 Appointment: Kristine Brambila WPtel: [facility] LAB 06/19/2017 Patient Education: Patient Medication [...] : J18.9 05/27/2017 Appointment: Ivon Sky 504 [facility] ACUTE ILLNESS 05/27/2017 Patient Education: Patient [...] ICD-10 : G47.00 05/20/2017 Appointment: Ivon Sky [address] [place] [address] ACUTE ILLNESS 05/20/2017 Patient Education: Patient Medication Summary Completed 05/20/2017 Visit Diagnosis Plan: Headache Discu ssion: Discussed likely Migraine Discussed MRI results Discussed changing acetazolamide to HCTZ ICD-9 : 784.0 ICD-10 : R51 04/22/2017 Visit Diagnosis Plan: Diplopia Discu ssion: Updated dilated eye exam ICD-9 : 368.2 ICD-10 : H53.2 04/22/2017 Appointment: Kristine Brambila WPtel: [address] [place] [address] FOLLOW UP 04/22/2017 Patient Education: Patient Medication Summary Completed 04/22/2017 Appointment: Kristine Brambila WPtel: [address] [place] [address] RESCHEDULED 04/07/2017 Visit Plan: Saline nasal flushes pr n. Tylenol/Motrin prn headache. Notify if persists/symptoms worsening. 04/01/2017 Visit Plan: Saline nasal flushes pr n. Tylenol/Motrin prn headache. Notify if persists/symptoms worsening. 04/01/2017 Visit NOS Plan: Plan Notes: Saline nasal flushes prn. Tyle... 04/01/2017 Visit Diagnosis Plan: Acute sinusitis, unspecified Discussion: Kenalog 40mg IM x1 Decadron/Garamycin Nose [place] Mix Has appointment on April 28 with ENT ICD-9 : 461.9 ICD-10 : J01.90 04/01/2017 Appointment: Kritsine Brambila WPtel: [address] [place] [address] ACUTE ILLNESS 04/01/2017 Patient Education: Patient Medication Summary Completed 04/01/2017 Referral: Serjio Lugo WPtel: [address] [place] [address] [place] Referral Appointment Requested 03/20/2017 Patient Education: Patient Medication Summary Completed 02/27/2017 Care Plan: CT ABDOMEN W/O DYE abd/pe lvis stone search LOINC : 82715-7 Pending 02/27/2017 Patient Education: Patient Medication Summary Completed 02/12/2017 Care Plan: MRI NECK SPINE W/O DYE LOINC : 08258-7 Pending 02/12/2017 Appointment: Kristine Brambila WPtel: [phone] [facility] LAB 02/10/2017 Patient Education: Patient Medication Summary [...] : M54.2 02/05/2017 Appointment: Kristine Brambila WPtel: [phone] [facility] [place] [facility] 02/05/2017 Patient Education: Patient Medication Summary Completed 02/05/2017 Care Plan: Referral Order SNOMED-CT : [id number] Pending 02/05/2017 Appointment: Kristine Brambila WPtel: [address] [place] [address] THROAT SWAB 02/03/2017 Patient Education: Patient Medication Summary Completed 02/03/2017 Appointment: Kristine Brambila WPtel: [address] [place] [address] 01/13 canceled~sl CANCELED 01/28/2017 Visit Plan: Supportive [...] : J02.8 01/13/2017 Appointment: Kristine Brambila WPtel: [address] [place] [address] ACUTE ILLNESS 01/13/2017 Patient Education: Patient Medication Summary Completed 01/13/2017 Appointment: Kristine Brambila WPtel: [address] [place], [place] [phone] LAB 12/18/2016 Patient Education: Patient Medication Summary Completed 12/18/2016 Visit Diagnosis Plan: Pain in unspecified joint Discussion: Will retry methotrexate since has worked in past to greatly reduce patient's pain--4 tabs week one then 5 tabs week 2 then 6 tabs weekly and fwup in 6 weeks ICD-9 : 719.49 ICD-10 : M25.50 11/27/2016 Appointment: Kristine Brambila WPtel: [address] [place], [place] [address] [place] / lm~sl 11/26 confimed~sl MEDICATION REVIEW 11/27/2016 Patient Education: Patient Medication Summary Completed 11/27/2016 Visit Plan: Supportive care. Rest, Fluids, Tylenol/Motrin prn fever or bodyaches. Notify if worsening symptoms. 08/27/2016 Visit Plan: Supportive care. Rest, Fluids, Tylenol/Motrin prn fever or bodyaches. Notify if worsening symptoms. 08/27/2016 Visit NOS Plan: Plan Notes: Support gauri care. Rest, Fluids... 08/27/2016 Visit Diagnosis Plan: retirement (current ) use of anticoagulants Discussion: PT/INR drawn ICD-9 : V58.61 ICD-10 : Z79.01 08/27/2016 Visit Diagnosis Plan: Dysuria Discus steven: Culture urine ICD-9 : 788.1 ICD-10 : R30.0 08/27/2016 Visit Diagnosis Plan: URI, ACUTE Dis cussion: Supportive care ICD-9 : 465.9 ICD-10 : J06.9 08/27/2016 Appointment: Kristine Brambila WPtel: [address] [place], [place] [address] 08/26 confirmed` MEDICATION REVIEW 08/27/2016 Patient Education: Patient Medication Summary Completed 08/27/2016 Appointment: Kristine Brambila WPtel: [address] [place], [place] [address] [place] BP CHECK 07/08/2016 Patient Education: Patient Medication Summary Completed 07/08/2016 Appointment: Kristine Brambila WPtel: [address] [place], [place] [address] [place] LAB 05/24/2016 Patient Education: Patient Medication Summary Completed 05/24/2016 Appointment: Kristine Brambila WPtel: [address] [place], [place] [phone] 04/24 will not be able to get [...] culture results 04/23/2016 Appointment: Nayeli Anderson 2[address] [facility]6[address] ACUTE ILLNESS 04/23/2016 Patient Education: Patient [...] add oral abx 04/17/2016 Appointment: Nayeli Anderson Toi[address] ACUTE ILLNESS 04/17/2016 Patient Education: Patient Medication Summary Completed 04/17/2016 Patient Education: [facility] - Saving AutoInj - 18-64 - Dynamic Portal ID Completed 04/17/2016 Appointment: Kristine Brambila WPtel: [address] [place], [place] [phone] LAB 04/11/2016 Patient Education: Patient Medication Summary [...] for migraines 03/12/2016 Appointment: Kristine Brambila WPtel: [address] [place], [place] [phone] 03/12 confirmed-sp FOLLOW UP 03/12/2016 Patient Education: Patient Medication Summary Completed 03/12/2016 Appointment: Kristine Brambila WPtel: [address] [place], [place] [phone] [place] LAB 02/12/2016 Patient Education: Patient Medication Summary Completed 02/12/2016 Appointment: Kristine Brambila WPtel: [address] [place], [place] [id number] LAB 02/01/2016 Patient Education: Patient Medication Summary Completed 02/01/2016 Appointment: Kristine Brambila WPtel: [phone] [facility]6[address] LAB 01/22/2016 Patient Education: Patient Medication [...] no improvement 11/10/2015 Appointment: Julee Slater WPtel: [address] [place], [place] [id number] ACUTE ILLNESS 11/10/2015 Patient Education: Patient Medication [...] care otherwise 11/09/2015 Appointment: Nayeli Anderson 2[address] [facility]6[address] ACUTE ILLNESS 11/09/2015 Patient Education: Patient Medication Summary Completed 11/09/2015 Referral: Maximiliano Neves WPtel: [phone] [id number] [place] Spoke with Sally at Dr. Ta's offic e. Patient is scheduled for 10/16/15 at 3:15pm. Demographics and notes have been faxed. Patient has been informed. -sp Initi ated 10/16/2015 Visit Plan: Proceed with biopsy/rem oval of right posterior neck node Mammogram ordered--US of right axilla if needed 10/10/2015 Appointment: Kristine Brambila WPtel: [phone] [facility] 10/08 confirmed ~sl FOLLOW UP 10/10/2015 Patient Education: Patient Medication Summary Completed 10/10/2015 Patient Education: [facility] - Saving AutoInj - 18-64 - Dynamic Portal ID Completed 10/10/2015 Care Plan: MAMMOGRAM SCREENING LOINC : 01826-6 Pending 10/10/2015 Visit Plan: Labs ordered - peripher al smear, tsh, b12 - see order requisition Soft tissue US of neck ordered as well to further evaluate mass to right reported to be there over a year Antibiotic as well for URI that is not resolving - rapid strep was negative Diflucan given - Dr Patty garcia and ok Discussed INR with Dr Brambila - coumadin change as above Refill written for hydros - needs to keep appt with Dr Brambila for next week for mcc management of pain 10/02/2015 Visit Plan: Labs [...] with Dr Brambila for next week for mcc management of pain 10/02/2015 Appointment: [facility]eli Anderson [facility] [facility] [facility] 10/02/2015 Patient Education: Patient Medication Summary Completed 10/02/2015 Patient Education: [facility] - Saving AutoInj - 18-64 - Dynamic Portal ID Completed 10/02/2015 Care Plan: US EXAM OF HEAD AND NECK Pending 10/02/2015 Appointment: Kristine Brambila WPtel: [phone] [facility] [place] LAB 09/29/2015 Patient Education: Patient Medication Summary Completed 09/29/2015 Appointment: Kristine Brambila WPtel: [address] [place], [place] [address] [place] LAB 07/27/2015 Patient Education: Patient Medication Summary Completed 07/27/2015 Visit Plan: Trial of Savella Did no t tolerate lyrica Did not tolerate cymbalta 07/10/2015 Appointment: Kristine Brambila WPtel: [address] [place], [place] [phone] 07/10 appt confirmed cn FOLLOW UP 07/10/2015 Patient Education: Patient Medication Summary Completed 07/10/2015 Appointment: Kristine Brambila WPtel: [address] [place], [place] [phone] [place] UA 06/30/2015 Patient Education: Patient Medication Summary Completed 06/30/2015 Visit Plan: Recommended Vitamin E o il topically bid to area of scar. Currently taking Amoxicillin for sinusitis. Recommend Flonase nasal spray 06/27/2015 Visit Plan: Recommended Vitamin E o il topically bid to area of scar. Currently taking Amoxicillin for sinusitis. Recommend Flonase nasal spray 06/27/2015 Appointment: Meli Hatch WPtel: [address] [place], [place] [phone] ACUTE ILLNESS 06/27/2015 Patient Education: Patient Medication Summary Completed 06/27/2015 Appointment: Meli Hatch WPtel: [address] [place], [place] [address] [place] 06/22/15 appt confirmed and she will drea ng new insurance card cn ACUTE ILLNESS 06/26/2015 Appointment: Kristine Brambila WPtel: [address] [place], [place] [phone] [place] LAB 06/21/2015 Patient Education: Patient Medication Summary Completed 06/21/2015 Visit Plan: Add cymbalta at 30mg da loli Repeat PT/INR in 2weeks Recheck 1mo Awaiting ID to reschedule 06/08/2015 Visit Plan: Add cymbalta at 30mg da loli Repeat PT/INR in 2weeks Recheck 1mo Awaiting ID to reschedule 06/08/2015 Appointment: Kristine Brambila WPtel: [address] [place] [address] 06/07 lm ~sl 06/08 confirmed ~sl FOLLOW UP 06/08/2015 Patient Education: Patient Medication Summary Completed 06/08/2015 Patient Education: [facility] - Saving AutoInj - Cymbalta - 18-64 - Dynamic Portal ID Completed 06/08/2015 Patient Education: [facility] - Saving AutoInj - 18-64 - Dynamic Portal ID Completed 06/08/2015 Appointment: Kristine Brambila WPtel: [address] [place] [address] UA 05/31/2015 Patient Education: Patient Medication Summary Completed 05/31/2015 Visit Plan: Check PT/INR today Stop ped Lyrica due to fluid retention Has appt. scheduled at [facility] with hematology and infectious disease 06/08 Follow-up appt. in 2 weeks following appt. at . 05/24/2015 Visit Plan: Check PT/INR today Stop ped Lyrica due to fluid retention Has appt. scheduled at [facility] with hematology and infectious disease 06/08 Follow-up appt. in 2 weeks following appt. at . 05/24/2015 Appointment: Meli Hatch WPtel: [facility] [address] [place] NEW PATIENT 05/24/2015 Patient Education: Patient Medication Summary Completed 05/24/2015 Patient Education: [facility] - Saving AutoInj - 18-64 - Dynamic Portal ID Completed 05/24/2015 Referral: Annamarie Melo WPtel: [facility] [address] Referral Initiated Instructions Comment . Rapid [...] retention Has appt. scheduled at [facility] with hematology and infectious disease 06/08 Follow-up appt. in 2 weeks following appt. at . . Saline nasal flush es prn. Tylenol/Motrin prn headache. Notify if persists/symptoms worsening. . Trial of Savella Did not tolerate lyrica Did not tolerate cymbalta . Check PT/INR today Stopped Lyrica due to fluid retention Has appt. scheduled at [facility] with hematology and infectious disease 06/08 Follow-up [...] with Dr Brambila for next week for [facility] management of pain . Labs ordered - [...] Dr Brambila for next week for terminal carman management of pain . Supportive care. Rest, Fluids, Tylenol/Motrin prn fever or bodyaches. Notify if worsening symptoms.New toothebrush in 5 days . Recommended Vitami n E oil topically [...]
--- OUTSIDE RECORDS SUMMARY | 2020-01-28 14:01 | XMS REPORT | CCD ---
Author Author Heydi Hatch APRN Organization [facility] Address [address] [place] [address] Phone Care Team Providers Care Project Management Engineer Name Role Phone Kristine Brambila D.O., PP Unavailable CCM Unavailable Summary Purpose Interface Exchange Insurance Providers Payer name Policy type / Coverage type Covered republican ID Effective Begin Date Effective End Date Blue Cross Blue Shield Blue Cross/Bl ue Shield [id number] 2018 Un known Family History Family History data not found Social History Social History Element Codes Description Effective Dates Tobacco history SNOMED CT: [id number] Current every day smoker 06/08/2015 Allergies, Adverse [...] 786.2 ICD-10: R05 Active 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/2017 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 ICD-9: V58.61 [...] 02/10/2017 Unknown Pelvic and perineal pain ICD-9: [id number] ICD-10: R10.2 Active 02/10/2017 Unknown Cervicalgia ICD-9: [...] COUGH ICD-9: 786.2 ICD-10: R05 07/21/2017 Active half-way (current) use of anticoagulants ICD-9: V58.61 ICD-10: [...] 02/10/2017 Active Pelvic and perineal pain ICD-9: [id number] ICD-10: R10.2 02/10/2017 Active Cervicalgia ICD-9: 723.1 [...] Date Stop Date Sta tus Fill Instructions penicillin V potassi um 500 mg tablet RxNorm: 486275 1 Tablet(s) PO BID 02/10/2019 02/16/2019 Ac tive penicillin V potassi um 500 mg tablet RxNorm: 181618 1 Tablet(s) PO BID 02/10/2019 02/09/2019 In active Diflucan 150 mg tablet RxNorm: 761422 TABLET(S) 1 TABLET(S) PO QW NEEDED 02/08/2019 No Stop Date Active Anusol-HC 25 mg rect al suppository RxNorm: 8332531 1 Suppository RTL QD as needed 02/08/2019 03/09/2019 Ac tive hydrocodone 10 mg-ac etaminophen 325 mg tablet RxNorm: 539885 1 Tablet(s) PO Q4-6H as needed for pain 02/01/2019 No Stop Date Active hydrocodone 10 mg-ac etaminophen 325 mg tablet RxNorm: 069780 1 Tablet(s) PO Q4-6H as needed for pain 02/01/2019 No Stop Date Active Diflucan 150 mg tablet RxNorm: 811708 Tablet(s) TABLET(S) 1 TABLET(S) PO QW NEEDED 01/28/2019 No Stop Date Active Vistaril 25 mg capsule RxNorm: 560396 1 Capsule(s) PO TID 01/27/2019 07/25/2019 Active ProAir HFA 90 mcg/ac tuation aerosol inhaler RxNorm: 059812 2 Puff(s) INH Q4H as needed 01/20/2019 No Stop Date Active Tessalon Perles 100 mg capsule RxNorm: 391318 1 Capsule(s) PO TID a s needed for cough 01/20/2019 No Stop Date Active doxycycline hyclate 100 mg capsule RxNorm: 6220749 1 Capsule(s) PO BID 01/20/2019 01/19/2019 In active doxycycline hyclate 100 mg capsule RxNorm: 0391120 1 Capsule(s) PO BID 01/20/2019 01/26/2019 In active Coumadin 5 mg tablet RxNorm: 766055 1 Tablet(s) PO QD (on Fri, , Fri, , Fri and Fri) 01/05/2019 06/09/2019 Active Generic For:COUMADIN 5MG TAB 05/25/2018 3:20:45 PM N O T I C E Last quantity doesn't match original quantity amoxicillin 500 mg c apsule RxNorm: 939575 1 Capsule(s) PO BID 01/05/2019 01/14/2019 Inactive amoxicillin 500 mg c apsule RxNorm: 350009 1 Capsule(s) PO BID 01/05/2019 01/04/2019 Inactive hydrocodone 10 mg-ac etaminophen 325 mg tablet RxNorm: 603235 1 Tablet(s) PO Q4-6H as needed for pain 01/01/2019 01/31/2019 Inactive cyclobenzaprine 10 m g tablet RxNorm: 452343 1 TABLET(S) PO QD NEEDED 12/23/2018 06/20/2019 Ac tive Coumadin 5 mg tablet RxNorm: 043143 Tablet(s) TAKE 1 TABLET(S) BY MOUTH FRI, FRI, FRI, Friday12/23/2018 01/04/2019 Inactive Generic For:COUMADIN 5MG TA B 05/25/2018 3:20:45 PM N O T I C E Last quantity doesn't match original quantity Diflucan 150 mg tablet RxNorm: 417217 Tablet(s) TABLET(S) 1 TABLET(S) PO QW NEEDED 12/23/2018 01/27/2019 Inactive Vitamin D2 50,000 un it capsule RxNorm: 1527170 1 Capsule(s) PO QW 12/04/2018 03/03/2019 Active Medrol (Juan Francisco) 4 mg ta blets in a dose pack RxNorm: 588789 Tablet(s) PO as direc liane 12/04/2018 12/03/2018 In active Vitamin D2 50,000 un it capsule RxNorm: 7390800 1 Capsule(s) PO QW 12/04/2018 12/03/2018 Inactive Medrol (Juan Francisco) 4 mg ta blets in a dose pack RxNorm: 682666 Tablet(s) PO as direc liane 12/04/2018 01/19/2019 In active Zithromax Z-Juan Francisco 250 mg tablet RxNorm: 366838 Tablet(s) PO take as directed 12/02/2018 No Stop Date Active Vistaril 25 mg capsule RxNorm: 018460 Capsule(s) 1 Capsule(s) PO TID as needed for anxiety 11/30/2018 02/27/2019 Active Coumadin 5 mg tablet RxNorm: 916133 Tablet(s) TAKE 1 TABLET(S) BY MOUTH FRI, FRI, FRI, Friday11/30/2018 12/22/2018 Inactive Generic For:COUMADIN 5MG TA B 05/25/2018 3:20:45 PM N O T I C E Last quantity doesn't match original quantity Diflucan 150 mg tablet RxNorm: 574418 Tablet(s) TABLET(S) 1 TABLET(S) PO QW NEEDED 11/26/2018 12/22/2018 Inactive cholestyramine (with sugar) 4 gram oral powder RxNorm: 265289 1 UNIT DOSE PO QD 11/24/2018 02/21/2019 Ac tive acetazolamide 125 mg tablet RxNorm: 978506 1 Tablet(s) PO BID 11/24/2018 02/21/2019 Active cyclobenzaprine 10 m g tablet RxNorm: 907446 1 Tablet(s) PO QD as needed 11/17/2018 12/22/2018 In active hydrocodone 10 mg-ac etaminophen 325 mg tablet RxNorm: 388165 1 Tablet(s) PO Q4-6H as needed for pain 11/05/2018 01/31/2019 Inactive acetazolamide 125 mg tablet RxNorm: 661821 1 TABLET(S) PO BID 10/26/2018 11/23/2018 Inactive cholestyramine (with sugar) 4 gram oral powder RxNorm: 807842 1 UNIT DOSE PO QD 10/26/2018 11/23/2018 In active Coumadin 5 mg tablet RxNorm: 987327 TAKE 1 TABLET(S) BY MOUTH FRI, FRI, FRI, Friday10/26/2018 11/29/2018 Inactive Generic For:COUMADIN 5MG TAB 05/25/2018 3:20:45 PM N O T I C E Last quantity doesn't match original quantity Diflucan 150 mg tablet RxNorm: 433956 TABLET(S) 1 TABLET(S) PO QW NEEDED 10/26/2018 11/25/2018 In active hydrocodone 10 mg-ac etaminophen 325 mg tablet RxNorm: 396010 1 Tablet(s) PO Q4-6H as needed for pain 10/08/2018 11/04/2018 Inactive acetazolamide 125 mg tablet RxNorm: 544268 1 Tablet(s) PO BID 09/24/2018 10/23/2018 Inactive Coumadin 5 mg tablet RxNorm: 731146 TAKE 1 TABLET(S) BY MOUTH FRI, FRI, FRI, Friday09/24/2018 10/25/2018 Inactive Generic For:COUMADIN 5MG TAB 05/25/2018 3:20:45 PM N O T I C E Last quantity doesn't match original quantity Diflucan 150 mg tablet RxNorm: 417064 Tablet(s) 1 Tablet(s) PO QW as needed 09/24/2018 10/25/2018 In active cyclobenzaprine 10 m g tablet RxNorm: 970725 1 Tablet(s) PO QD as needed 09/24/2018 11/16/2018 In active Vistaril 25 mg capsule RxNorm: 184737 1 Capsule(s) PO TID as needed for anxiet y 09/24/2018 11/29/2018 In active cholestyramine (with sugar) 4 gram oral powder RxNorm: 268059 1 Unit Dose PO QD 09/24/2018 10/23/2018 In active Pyridium 200 mg tablet RxNorm: 0357828 1 Tablet(s) PO TID 09/10/2018 09/19/2018 Inactive Pyridium 200 mg tablet RxNorm: 4472704 1 Tablet(s) PO TID 09/10/2018 09/09/2018 Inactive hydrocodone 10 mg-ac etaminophen 325 mg tablet RxNorm: 384140 1 Tablet(s) PO Q4-6H as needed for pain 09/08/2018 10/07/2018 Inactive cefdinir 300 mg capsule RxNorm: 683681 1 Capsule(s) PO BID 09/08/2018 09/21/2018 Inactive hydrocodone 10 mg-ac etaminophen 325 mg tablet RxNorm: 944327 1 Tablet(s) PO Q4-6H as needed for pain 08/13/2018 09/07/2018 Inactive cyclobenzaprine 10 m g tablet RxNorm: 958183 1 Tablet(s) PO QD as needed 07/23/2018 09/23/2018 In active Diflucan 150 mg tablet RxNorm: 977628 Tablet(s) 1 Tablet(s) PO QW as needed 07/23/2018 09/23/2018 In active Ciprodex 0.3 %-0.1 % ear drops,suspension RxNorm: 011760 4 Drop(s) left otic ( ear) BID 07/23/2018 07/29/2018 Inactive hydrocodone 10 mg-ac etaminophen 325 mg tablet RxNorm: 372691 1 Tablet(s) PO Q4-6H as needed for pain 07/16/2018 08/12/2018 Inactive penicillin V potassi um 500 mg tablet RxNorm: 626136 1 Tablet(s) PO Q6H 07/08/2018 07/17/2018 In active cyclobenzaprine 10 m g tablet RxNorm: 042216 1 Tablet(s) PO QD as needed 06/22/2018 07/22/2018 In active Vistaril 25 mg capsule RxNorm: 440046 1 Capsule(s) PO TID as needed for anxiet y 06/22/2018 09/23/2018 In active cholestyramine (with sugar) 4 gram oral powder RxNorm: 510646 1 Unit Dose PO QD 06/22/2018 09/23/2018 In active hydrocodone 10 mg-ac etaminophen 325 mg tablet RxNorm: 598516 1 Tablet(s) PO Q4-6H as needed for pain 06/17/2018 07/15/2018 Inactive cefdinir 300 mg capsule RxNorm: 956781 1 Capsule(s) PO BID 06/02/2018 06/11/2018 Inactive Diflucan 150 mg tablet RxNorm: 250088 Tablet(s) 1 Tablet(s) PO QW as needed 06/02/2018 07/22/2018 In active Coumadin 5 mg tablet RxNorm: 011772 TAKE 1 TABLET(S) BY MOUTH MON, FRI, FRI, Friday05/25/2018 07/15/2018 Inactive Generic For:COUMADIN 5MG TAB 05/25/2018 3:20:45 PM N O T I C E Last quantity doesn't match original quantity Imitrex 50 mg tablet RxNorm: 385346 Tablet(s) 1 Tablet(s) PO at headache. re peat in 2 hours if no relief. no more than 2 tabs per day 05/19/2018 No Stop Date Active cholestyramine (with sugar) 4 gram oral powder RxNorm: 701275 1 Unit Dose PO QD 05/19/2018 11/14/2018 In active Vistaril 25 mg capsule RxNorm: 862200 1 Capsule(s) PO TID 05/19/2018 11/14/2018 Inactive Coumadin 5 mg tablet RxNorm: 216236 Tablet(s) TAKE 1 TABLET(S) BY MOUTH FRI, FRI, FRI, Friday05/19/2018 05/24/2018 Inactive Generic For:COUMADIN 5MG TA B N O T I C E Last quantity doesn't match original quantity acetazolamide 125 mg tablet RxNorm: 921716 1 Tablet(s) PO BID 05/19/2018 09/23/2018 Inactive cyclobenzaprine 10 m g tablet RxNorm: 613926 1 Tablet(s) PO QD as needed 05/19/2018 11/17/2018 In active Coumadin 7.5 mg tablet RxNorm: 895188 1 Tablet(s) PO QD , , 05/19/2018 01/04/2019 In active ketorolac 10 mg tablet RxNorm: 407193 1 Tablet(s) PO QHS as needed 05/11/2018 No Stop Date Active promethazine 12.5 mg tablet RxNorm: 130963 1 Tablet(s) PO Q6H as needed 04/23/2018 04/22/2018 In active acetazolamide 125 mg tablet RxNorm: 887518 1 Tablet(s) PO BID 04/23/2018 05/18/2018 Inactive Coumadin 5 mg tablet RxNorm: 078223 TAKE 1 TABLET(S) BY MOUTH FRI, FRI, FRI, Friday04/23/2018 05/18/2018 Inactive Generic For:COUMADIN 5MG TAB N O T I C E Last quantity doesn't match original quantity Imitrex 50 mg tablet RxNorm: 686081 1 Tablet(s) PO at headache. repeat in 2 hours if no relief. no more than 2 tabs per day 04/23/2018 05/18/2018 Inactive cyclobenzaprine 10 m g tablet RxNorm: 890539 1 Tablet(s) PO QD as needed 04/23/2018 05/18/2018 In active clindamycin HCl 300 mg capsule RxNorm: 608227 1 Capsule(s) PO TID 04/02/2018 04/11/2018 Inactive hydrocodone 10 mg-ac etaminophen 325 mg tablet RxNorm: 649145 1 Tablet(s) PO Q4-6H as needed for pain 03/24/2018 06/16/2018 Inactive promethazine 12.5 mg tablet RxNorm: 711164 1 Tablet(s) PO Q6H 03/23/2018 04/23/2018 Inactive Imitrex 50 mg tablet RxNorm: 875112 1 Tablet(s) PO at headache. repeat in 2 hours if no relief. no more than 2 tabs per day 03/23/2018 04/22/2018 Inactive Diflucan 150 mg tablet RxNorm: 893334 1 Tablet(s) PO QW as needed 03/23/2018 06/01/2018 Inactive Coumadin 5 mg tablet RxNorm: 591906 Tablet(s) 1 Tablet(s) PO Mon, Wed, Fri, Sun 03/23/2018 04/22/2018 In active Imitrex 100 mg tablet RxNorm: 757652 Tablet(s) PO take one tablet at sign of headache and repeat in 2 hours if ineffective 03/16/2018 04/01/2018 Inactive ondansetron HCl 4 mg tablet RxNorm: 803816 1 Tablet(s) PO Q4H as needed for nausea 02/24/2018 04/01/2018 In active hydrocodone 10 mg-ac etaminophen 325 mg tablet RxNorm: 654071 1 Tablet(s) PO Q4-6H as needed for pain 02/24/2018 03/23/2018 Inactive Coumadin 5 mg tablet RxNorm: 514427 Tablet(s) 1 Tablet(s) PO Mon, Wed, Fri, Sun 02/20/2018 03/22/2018 In active promethazine 12.5 mg tablet RxNorm: 159411 1 Tablet(s) PO Q6H 02/20/2018 03/22/2018 Inactive Pepcid 40 mg tablet RxNorm: 413744 1 Tablet(s) PO BID for stomach 02/16/2018 03/17/2018 In active Flagyl 500 mg tablet RxNorm: 253523 1 Tablet(s) PO TID 02/16/2018 02/25/2018 Inactive Imitrex 50 mg tablet RxNorm: 739165 1 Tablet(s) PO at headache. repeat in 2 hours if no relief. no more than 2 tabs per day 01/27/2018 03/15/2018 Inactive Coumadin 5 mg tablet RxNorm: 811377 1 Tablet(s) PO Mon, Wed, Fri, Sun 01/27/2018 02/20/2018 In active amoxicillin 875 mg t ablet RxNorm: 169157 1 Tablet(s) PO BID 01/26/2018 02/04/2018 Inactive Imitrex 50 mg tablet RxNorm: 015473 1 Tablet(s) PO at headache. repeat in 2 hours if no relief. no more than 2 tabs per day 01/26/2018 03/22/2018 Inactive cyclobenzaprine 10 m g tablet RxNorm: 857258 1 Tablet(s) PO QD as needed 01/23/2018 03/23/2018 In active promethazine 12.5 mg tablet RxNorm: 041710 1 Tablet(s) PO Q6H 01/23/2018 02/19/2018 Inactive Diflucan 150 mg tablet RxNorm: 117473 1 Tablet(s) PO QW as needed 01/22/2018 03/22/2018 Inactive acetazolamide 125 mg tablet RxNorm: 033407 1 Tablet(s) PO BID 01/22/2018 04/21/2018 Inactive Imitrex 50 mg tablet RxNorm: 792884 1 Tablet(s) PO at headache. repeat in 2 hours if no relief. no more than 2 tabs per day 01/02/2018 01/25/2018 Inactive Ciprodex 0.3 %-0.1 % ear drops,suspension RxNorm: 058294 4 Drop(s) otic (ear) BID 01/01/2018 01/07/2018 In active Coumadin 7.5 mg tablet RxNorm: 151205 1 Tablet(s) PO QD , Th, 12/29/2017 05/18/2018 In active Coumadin 5 mg tablet RxNorm: 267855 1 Tablet(s) PO Mon, Wed, Fri, Sun 12/29/2017 01/26/2018 In active cyclobenzaprine 10 m g tablet RxNorm: 196594 1 Tablet(s) PO QD as needed 12/29/2017 01/22/2018 In active clindamycin HCl 300 mg capsule RxNorm: 062996 1 Capsule(s) PO TID 12/26/2017 12/25/2017 Inactive Imitrex 50 mg tablet RxNorm: 361064 1 Tablet(s) PO at headache. repeat in 2 hours if no relief. no more than 2 tabs per day 12/26/2017 01/01/2018 Inactive clindamycin HCl 300 mg capsule RxNorm: 161135 1 Capsule(s) PO TID 12/26/2017 01/04/2018 Inactive Zithromax Z-Juan Francisco 250 mg tablet RxNorm: 283667 Tablet(s) PO take as directed 12/25/2017 12/25/2017 In active promethazine 12.5 mg tablet RxNorm: 372210 1 Tablet(s) PO Q6H 12/25/2017 01/22/2018 Inactive clindamycin HCl 300 mg capsule RxNorm: 374347 1 Capsule(s) PO TID 12/11/2017 12/17/2017 Inactive Vistaril 25 mg capsule RxNorm: 624413 1 Capsule(s) PO TID as needed for anxiet y 12/04/2017 05/18/2018 In active cholestyramine (with sugar) 4 gram oral powder RxNorm: 561537 1 Unit Dose PO QD 12/04/2017 05/18/2018 In active Coumadin 7.5 mg tablet RxNorm: 164971 1 Tablet(s) PO QD 12/04/2017 12/28/2017 Inactive Coumadin 5 mg tablet RxNorm: 617588 1 Tablet(s) PO Friday through Friday12/04/2017 12/28/2017 In active hydrocodone 10 mg-ac etaminophen 325 mg tablet RxNorm: 014709 1 Tablet(s) PO Q4-6H as needed for pain 12/01/2017 02/23/2018 Inactive hydrocodone 10 mg-ac etaminophen 325 mg tablet RxNorm: 607706 1 Tablet(s) PO Q4-6H as needed for pain 11/03/2017 11/30/2017 Inactive cyclobenzaprine 10 m g tablet RxNorm: 346951 1 Tablet(s) PO QD as needed 10/30/2017 12/28/2017 In active cholestyramine (with sugar) 4 gram oral powder RxNorm: 788220 1 Unit Dose PO QD 10/30/2017 11/28/2017 In active amoxicillin 875 mg t ablet RxNorm: 168448 1 Tablet(s) PO BID 10/08/2017 10/07/2017 Inactive amoxicillin 875 mg t ablet RxNorm: 822859 1 Tablet(s) PO BID 10/08/2017 10/17/2017 Inactive penicillin V potassi um 500 mg tablet RxNorm: 441680 1 Tablet(s) PO BID 10/06/2017 10/07/2017 In active hydrocodone 10 mg-ac etaminophen 325 mg tablet RxNorm: 910038 1 Tablet(s) PO Q4-6H as needed for pain 10/06/2017 11/02/2017 Inactive hydrocodone 10 mg-ac etaminophen 325 mg tablet RxNorm: 964539 1 Tablet(s) PO Q4-6H as needed for pain 10/06/2017 12/31/2018 Inactive Vigamox 0.5 % eye drops RxNorm: 918793 1 Drop(s) ophthalmic (eye) TID ONLY ADMI NISTER IF INFECTION 10/03/2017 10/02/2017 Inactive Vigamox 0.5 % eye drops RxNorm: 653468 1 Drop(s) ophthalmic (eye) TID ONLY ADMI NISTER IF INFECTION 10/03/2017 10/09/2017 Inactive cholestyramine (with sugar) 4 gram oral powder RxNorm: 882338 1 Unit Dose PO QD 09/23/2017 10/30/2017 In active acetazolamide 125 mg tablet RxNorm: 659559 1 Tablet(s) PO BID 09/23/2017 12/21/2017 Inactive Coumadin 5 mg tablet RxNorm: 432302 1 Tablet(s) PO QD FRIDAY THROUGH Friday09/17/2017 11/04/2017 In active mupirocin 2 % topica l ointment RxNorm: 222428 1 Application TOP TID 09/10/2017 11/04/2017 Inactive hydrocodone 10 mg-ac etaminophen 325 mg tablet RxNorm: 128226 1 Tablet(s) PO Q4-6H as needed for pain 09/08/2017 10/05/2017 Inactive Questran 4 gram powd er for susp in a packet RxNorm: 998255 MIX ONE PACKET IN 6 O UNCES OF APPLE SAUCE OR OTHER SOFT FOOD AND EAT ONCE DAILY 09/02/2017 11/04/2017 Inactive Diflucan 150 mg tablet RxNorm: 745414 1 Tablet(s) PO QW as needed 08/14/2017 01/21/2018 Inactive hydrocodone 10 mg-ac etaminophen 325 mg tablet RxNorm: 180714 1 Tablet(s) PO Q4-6H as needed for pain 08/11/2017 09/07/2017 Inactive Tamiflu 75 mg capsule RxNorm: 291583 1 Capsule(s) PO QD 08/11/2017 08/10/2017 Inactive Tamiflu 75 mg capsule RxNorm: 502325 1 Capsule(s) PO QD 08/11/2017 08/20/2017 Inactive Coumadin 5 mg tablet RxNorm: 130701 1 Tablet(s) PO QD FRIDAY THROUGH Friday07/22/2017 09/16/2017 In active Coumadin 5 mg tablet RxNorm: 937186 TAKE ONE TABLET BY MOUTH ONCE DAILY THROUGH Friday07/16/2017 07/21/2017 Inactive cyclobenzaprine 10 m g tablet RxNorm: 549121 1 Tablet(s) PO QD as needed 07/15/2017 10/30/2017 In active hydrocodone 10 mg-ac etaminophen 325 mg tablet RxNorm: 502405 1 Tablet(s) PO Q4-6H as needed for pain 07/14/2017 08/10/2017 Inactive warfarin 5 mg tablet RxNorm: 730406 1 Tablet(s) PO Fri [facility] 06/18/2017 07/15/2017 Inactive Questran Light 4 gra m powder for susp in a packet RxNorm: 5658510 1 PO QD 06/18/2017 11/04/2017 In active cyclobenzaprine 10 m g tablet RxNorm: 688075 1 Tablet(s) PO QD as needed 06/18/2017 07/14/2017 In active hydrocodone 10 mg-ac etaminophen 325 mg tablet RxNorm: 738983 1 Tablet(s) PO Q4-6H as needed for pain 06/18/2017 07/13/2017 Inactive Lunesta 1 mg tablet RxNorm: 531872 1 Tablet(s) PO QHS as needed 05/27/2017 06/25/2017 Inactive Zithromax Z-Juan Francisco 250 mg tablet RxNorm: 736243 1 Tablet(s) PO Take a s directed 05/27/2017 11/04/2017 In active ProAir HFA 90 mcg/ac tuation aerosol inhaler RxNorm: 337490 2 Puff(s) INH Q4H 05/27/2017 01/19/2019 In active ProAir HFA 90 mcg/ac tuation aerosol inhaler RxNorm: 418351 2 Puff(s) INH Q4H 05/27/2017 05/26/2017 In active promethazine 6.25 mg -codeine 10 mg/5 mL syrup RxNorm: 783562 5 Milliliter(s) PO Q4 H as needed 05/27/2017 11/04/2017 Inactive Diflucan 150 mg tablet RxNorm: 309101 1 Tablet(s) PO QW as needed 05/26/2017 05/25/2017 Inactive cyclobenzaprine 10 m g tablet RxNorm: 504918 1 Tablet(s) PO QD as needed 05/20/2017 06/18/2017 In active Lunesta 2 mg tablet RxNorm: 665237 1 Tablet(s) PO QHS 05/20/2017 05/27/2017 Inactive Zithromax Z-Juan Francisco 250 mg tablet RxNorm: 132487 Tablet(s) PO As Direc liane 05/12/2017 05/19/2017 In active cyclobenzaprine 5 mg tablet RxNorm: 883048 1 Tablet(s) PO QPM 03/28/2017 05/19/2017 Inactive Vistaril 25 mg capsule RxNorm: 629493 1 Capsule(s) PO TID as needed for anxiet y 03/28/2017 09/23/2017 In active Questran 4 gram powd er for susp in a packet RxNorm: 437892 1 Unit(s) PO QD 03/06/2017 06/18/2017 In active Cipro 500 mg tablet RxNorm: 472864 1 Tablet(s) PO BID 02/27/2017 02/26/2017 Inactive Pyridium 200 mg tablet RxNorm: 2904988 1 Tablet(s) PO TID for bladder spasms 02/27/2017 03/31/2017 In active Cipro 500 mg tablet RxNorm: 903841 1 Tablet(s) PO BID 02/27/2017 03/05/2017 Inactive Levsin 0.125 mg tablet RxNorm: 0516754 1 Tablet(s) PO QID as needed for spasm 02/25/2017 11/04/2017 In active tamsulosin 0.4 mg ca psule RxNorm: 583150 1 Capsule(s) PO QPM 02/25/2017 03/26/2017 Inactive tamsulosin 0.4 mg ca psule RxNorm: 392916 1 Capsule(s) PO QPM 02/25/2017 02/24/2017 Inactive Pyridium 100 mg tablet RxNorm: 9177793 1 Tablet(s) PO TID as needed 02/21/2017 03/31/2017 In active acetazolamide 125 mg tablet RxNorm: 911613 1 Tablet(s) PO BID 02/07/2017 09/23/2017 Inactive Questran 4 gram powd er for susp in a packet RxNorm: 487146 1 Unit(s) PO QD 02/06/2017 03/06/2017 In active cyclobenzaprine 5 mg tablet RxNorm: 898016 1 Tablet(s) PO QPM 02/05/2017 03/27/2017 Inactive BuSpar 5 mg tablet RxNorm: 577716 1 Tablet(s) PO BID 02/03/2017 03/31/2017 Inactive Diflucan 150 mg tablet RxNorm: 709298 1 Tablet(s) PO QW as needed 01/15/2017 05/26/2017 Inactive Valtrex 1 gram tablet RxNorm: 835068 1 Tablet(s) PO TID 01/13/2017 01/19/2017 Inactive Vistaril 25 mg capsule RxNorm: 680077 1 Capsule(s) PO TID as needed for anxiet y 01/13/2017 03/27/2017 In active hydrocodone 10 mg-ac etaminophen 325 mg tablet RxNorm: 507572 1 Tablet(s) PO Q4-6H as needed for pain 01/13/2017 06/17/2017 Inactive Questran 4 gram powd er for susp in a packet RxNorm: 299367 1 Unit(s) PO QD 01/13/2017 09/23/2017 In active acetazolamide 125 mg tablet RxNorm: 312280 1 Tablet(s) PO BID 01/13/2017 02/06/2017 Inactive methotrexate (PF) 20 mg/0.4 mL subcutaneous auto-injector RxNorm: 5992807 Milliliter(s) SQ QW 12/26/2016 01/05/2017 Inactive Compazine 10 mg tablet RxNorm: 538156 1 Tablet(s) PO TID as needed for nausea 12/18/2016 11/04/2017 In active hydrocodone 10 mg-ac etaminophen 325 mg tablet RxNorm: 952902 1 Tablet(s) PO Q4-6H as needed for pain 12/17/2016 01/12/2017 Inactive Questran 4 gram powd er for susp in a packet RxNorm: 757874 1 Unit(s) PO QD 12/17/2016 01/13/2017 In active cyclobenzaprine 5 mg tablet RxNorm: 536413 1 Tablet(s) PO QPM 12/17/2016 02/05/2017 Inactive Questran Light 4 gra m powder for susp in a packet RxNorm: 1504316 1 PO QD 11/29/2016 06/17/2017 In active Zofran ODT 4 mg disi ntegrating tablet RxNorm: 049373 1 Tablet(s) PO Q4H as needed for nausea 11/29/2016 12/17/2016 Inactive methotrexate sodium 2.5 mg tablet RxNorm: 451691 4 Tablet(s) PO week 1 then 5 tablets po week 2 then 6 tablets weekly 11/27/2016 12/25/2016 Inactive warfarin 7.5 mg tablet RxNorm: 203174 1 Tablet(s) PO three times weekly 11/14/2016 03/31/2017 In active warfarin 7.5 mg tablet RxNorm: 720811 1 Tablet(s) PO three times weekly 11/13/2016 11/13/2016 In active Diflucan 150 mg tablet RxNorm: 641488 1 Tablet(s) PO QW as needed 11/05/2016 01/14/2017 Inactive Vistaril 25 mg capsule RxNorm: 782808 1 Capsule(s) PO TID as needed for anxiet y 11/04/2016 11/03/2016 In active Coumadin 5 mg tablet RxNorm: 910158 1 Tablet(s) PO Friday through Friday11/04/2016 06/18/2017 In active acetazolamide 125 mg tablet RxNorm: 662347 1 Tablet(s) PO BID 11/04/2016 01/13/2017 Inactive sumatriptan 100 mg t ablet RxNorm: 216714 1 Tablet(s) PO at hea dache onset. May repeat in 2 hours if headache remains 11/04/2016 11/04/2017 Inactive Vistaril 25 mg capsule RxNorm: 856353 1 Capsule(s) PO TID as needed for anxiet y 11/04/2016 01/12/2017 In active hydrocodone 10 mg-ac etaminophen 325 mg tablet RxNorm: 958196 1 Tablet(s) PO Q4-6H as needed for pain 11/04/2016 12/16/2016 Inactive Coumadin 5 mg tablet RxNorm: 676017 TAKE ONE TABLET BY MOUTH ON SUN., FRI., FRI., AND FRI., AND TAKE ONE AND ONE-HALF TABLETS TUE., ., AND 10/16/2016 10/25/2016 In active Coumadin 5 mg tablet RxNorm: 111497 1 Tablet(s) PO Friday through Friday10/15/2016 11/03/2016 In active hydrocodone 10 mg-ac etaminophen 325 mg tablet RxNorm: 517220 1 Tablet(s) PO Q4-6H as needed for pain 10/14/2016 11/03/2016 Inactive hydrocodone 10 mg-ac etaminophen 325 mg tablet RxNorm: 942979 1 Tablet(s) PO Q4-6H as needed for pain 09/20/2016 10/13/2016 Inactive warfarin 7.5 mg tablet RxNorm: 452871 1 Tablet(s) PO three times weekly 09/20/2016 11/12/2016 In active Diflucan 150 mg tablet RxNorm: 954945 1 Tablet(s) PO QW as needed 08/20/2016 11/04/2016 Inactive acetazolamide 125 mg tablet RxNorm: 586762 1 Tablet(s) PO BID 08/20/2016 11/04/2016 Inactive Diflucan 150 mg tablet RxNorm: 561297 1 Tablet(s) PO QW as needed 08/20/2016 08/19/2016 Inactive Vistaril 25 mg capsule RxNorm: 627314 Capsule(s) TAKE ONE CAPSULE BY MOUTH THR EE TIMES DAILY NEEDED FOR ANXIETY 08/19/2016 11/04/2016 Inactive hydrocodone 10 mg-ac etaminophen 325 mg tablet RxNorm: 107297 1 Tablet(s) PO Q4-6H as needed for pain 08/05/2016 09/19/2016 Inactive Diflucan 150 mg tablet RxNorm: 772390 1 Tablet(s) PO QW as needed 07/19/2016 08/19/2016 Inactive tizanidine 4 mg tablet RxNorm: 554712 1-2 Tablet(s) PO QHS as needed for muscl e spasm and sleep 06/03/2016 06/10/2016 Inactive Questran Light 4 gra m powder for susp in a packet RxNorm: 2437055 1 PO QD 05/14/2016 08/11/2016 In active Macrobid 100 mg capsule RxNorm: 535464 1 Capsule(s) PO BID 04/23/2016 05/02/2016 Inactive mupirocin 2 % topica l ointment RxNorm: 227078 Apply topically to af fected area 2-3 times daily 04/17/2016 07/07/2016 Inactive Vistaril 25 mg capsule RxNorm: 647527 TAKE ONE CAPSULE BY MOUTH THREE TIMES DA LOLI NEEDED FOR ANXIETY 04/17/2016 11/04/2016 Inactive Diflucan 150 mg tablet RxNorm: 691405 1 Tablet(s) PO QW as needed 04/16/2016 07/18/2016 Inactive cyclobenzaprine 5 mg tablet RxNorm: 182188 TAKE ONE TABLET BY [facility] ONCE DAILY IN THE EVENING 03/25/2016 12/17/2016 Inactive Pyridium 100 mg tablet RxNorm: 0203715 1 Tablet(s) PO TID as needed 03/20/2016 03/19/2016 In active Diflucan 150 mg tablet RxNorm: 514548 1 Tablet(s) PO QW as needed 03/20/2016 04/15/2016 Inactive Pyridium 100 mg tablet RxNorm: 0282529 1 Tablet(s) PO TID as needed 03/20/2016 08/26/2016 In active Diflucan 150 mg tablet RxNorm: 189842 1 Tablet(s) PO QW as needed 03/19/2016 03/19/2016 Inactive Coumadin 7.5 mg tablet RxNorm: 942633 1 Tablet(s) PO QD 03/14/2016 05/12/2016 Inactive acetazolamide 125 mg tablet RxNorm: 760840 1 Tablet(s) PO BID 02/28/2016 08/20/2016 Inactive Coumadin 5 mg tablet RxNorm: 473825 1 TABLET(S) PO QD THREE TIMES A WEEK AND 1 1/2 TAB (7.5MG) FOUR TIMES A WEEK 02/28/2016 03/13/2016 Inactive Questran Light 4 gra m powder for susp in a packet RxNorm: 5365933 1 PO QD 02/13/2016 05/12/2016 In active Diflucan 150 mg tablet RxNorm: 086044 1 Tablet(s) PO QW as needed 01/19/2016 03/11/2016 Inactive Diflucan 150 mg tablet RxNorm: 457783 1 Tablet(s) PO QW as needed 01/18/2016 01/18/2016 Inactive promethazine 25 mg t ablet RxNorm: 009664 1 Tablet(s) PO Q4H as needed for nausea 12/05/2015 12/17/2016 In active Imitrex 100 mg tablet RxNorm: 562128 1 Tablet(s) PO at headache onset and may repeat in 2 hours if needed 12/05/2015 03/31/2017 Inactive Diflucan 150 mg tablet RxNorm: 396129 1 Tablet(s) PO QW as needed 11/24/2015 01/17/2016 Inactive Diflucan 150 mg tablet RxNorm: 573591 1 Tablet(s) PO QW as needed 11/21/2015 11/23/2015 Inactive Coumadin 5 mg tablet RxNorm: 991899 1 Tablet(s) PO QD three times a week and 1 1/2 tab (7.5mg) four times a week 11/13/2015 02/01/2016 Inactive Questran Light 4 gra m powder for susp in a packet RxNorm: 183695 1 PO QD 11/13/2015 02/10/2016 In active acetazolamide 125 mg tablet RxNorm: 770639 1 Tablet(s) PO BID 11/13/2015 02/10/2016 Inactive amoxicillin 875 mg t ablet RxNorm: 174962 1 Tablet(s) PO BID 11/09/2015 11/18/2015 Inactive Coumadin 7.5 mg tablet RxNorm: 006446 1 Tablet(s) PO on and 10/26/2015 10/25/2015 In active Coumadin 7.5 mg tablet RxNorm: 160623 1 Tablet(s) PO on and 10/26/2015 11/12/2015 In active Coumadin 5 mg tablet RxNorm: 257893 1 Tablet(s) PO Friday, Friday, Friday and Friday. 1.5 tablets Friday, and Friday. 10/26/2015 10/25/2015 Inactive Coumadin 5 mg tablet RxNorm: 962877 1 Tablet(s) PO Friday, Friday, Friday , and Friday. Take 1 1/2 on Friday, and Friday10/26/2015 11/12/2015 Inactive Coumadin 7.5 mg tablet RxNorm: 034502 1 Tablet(s) PO on and 10/26/2015 10/26/2015 In active Coumadin 5 mg tablet RxNorm: 682187 1 Tablet(s) PO Friday, Friday, Friday and Friday. 1.5 tablets Friday, and Friday. 10/26/2015 02/14/2016 Inactive Vistaril 25 mg capsule RxNorm: 898486 1 Capsule(s) PO TID as needed for anxiet y 10/10/2015 04/06/2016 In active cyclobenzaprine 5 mg tablet RxNorm: 022530 1 Tablet(s) PO QPM 10/10/2015 03/24/2016 Inactive Vistaril 25 mg capsule RxNorm: 788613 1 Capsule(s) PO TID as needed for anxiet y 10/10/2015 10/09/2015 In active cyclobenzaprine 5 mg tablet RxNorm: 090692 1 Tablet(s) PO QPM 10/10/2015 10/09/2015 Inactive Coumadin 5 mg tablet RxNorm: 127511 1 Tablet(s) PO Friday, Friday, Friday and Friday. 1.5 tablets Friday, and Friday. 10/02/2015 10/01/2015 Inactive Coumadin 5 mg tablet RxNorm: 443284 1 Tablet(s) PO Friday, Friday, Friday and Friday. 1.5 tablets Friday, and Friday. 10/02/2015 10/25/2015 Inactive amoxicillin 500 mg t ablet RxNorm: 488849 1 Tablet(s) PO TID 10/02/2015 10/11/2015 Inactive hydrocodone 10 mg-ac etaminophen 325 mg tablet RxNorm: 560969 1 Tablet(s) PO Q4-6H as needed for pain 10/02/2015 08/04/2016 Inactive Diflucan 150 mg tablet RxNorm: 393092 1 Tablet(s) PO QW as needed 10/02/2015 10/01/2015 Inactive amoxicillin 500 mg t ablet RxNorm: 013594 1 Tablet(s) PO TID 10/02/2015 10/01/2015 Inactive Diflucan 150 mg tablet RxNorm: 172622 1 Tablet(s) PO QW as needed 10/02/2015 10/09/2015 Inactive Coumadin 5 mg tablet RxNorm: 844151 1 Tablet(s) PO Fri.,Fri.,Fri., Sat. and Sun. 09/14/2015 10/01/2015 Inactive acetazolamide 125 mg tablet RxNorm: 876828 1 Tablet(s) PO BID 09/14/2015 11/12/2015 Inactive hydrocodone 10 mg-ac etaminophen 325 mg tablet RxNorm: 015260 1 Tablet(s) PO Q4-6H as needed for pain 09/01/2015 10/01/2015 Inactive Vistaril 25 mg capsule RxNorm: 214711 1 Capsule(s) PO TID as needed for anxiet y 08/24/2015 09/22/2015 In active baclofen 10 mg tablet RxNorm: 521253 1/2 Tablet(s) PO QAM and 1 tablet at bed time 07/27/2015 10/09/2015 Inactive Vistaril 25 mg capsule RxNorm: 997656 1 Capsule(s) PO BID 07/24/2015 08/22/2015 Inactive Savella 12.5 mg (5)- 25 mg(8)-50mg(42) tablets in a dose pack RxNorm: 656256 Tablet(s) PO as directed 07/10/2015 07/26/2015 Inactive hydrocodone 10 mg-ac etaminophen 325 mg tablet RxNorm: 847433 1 Tablet(s) PO Q6H as needed for pain 06/29/2015 08/10/2015 Inactive Coumadin 7.5 mg tablet RxNorm: 492898 1 Tablet(s) PO on and 06/21/2015 10/25/2015 In active Vistaril 25 mg capsule RxNorm: 382474 1 Capsule(s) PO BID 06/20/2015 07/24/2015 Inactive Cymbalta 30 mg capsu le,delayed release RxNorm: 337531 1 Capsule(s) PO QD 06/08/2015 07/09/2015 In active Coumadin 5 mg tablet RxNorm: 513723 1 Tablet(s) PO Mon.,Wed.,Fri., Sat. and Sun. 06/08/2015 07/07/2015 Inactive Coumadin 5 mg tablet RxNorm: 692582 1 Tablet(s) PO Mon.,Wed.,Fri., Sat. and Sun. 05/24/2015 06/07/2015 Inactive Coumadin 7.5 mg tablet RxNorm: 500705 1 Tablet(s) PO on and 05/24/2015 06/20/2015 In active Coumadin 7.5 mg tablet RxNorm: 427936 1 Tablet(s) PO on Friday No Start Date Active Vitamin B12 1000mcg Tablet RxNorm: 1/2 Tablet(s) PO QD No Start Date Active Bystolic 10 mg tablet RxNorm: 504545 3 Tablet(s) PO QAM No Start Date Active Vitamin D3 5,000 uni t tablet RxNorm: 745408 1 Tablet(s) PO QD No Start Date Active Bystolic 5 mg tablet RxNorm: 048185 1 Tablet(s) PO NOON No Start Date Active sumatriptan 100 mg t ablet RxNorm: 212968 1 Tablet(s) PO at hea dache onset. May repeat in 2 hours if headache remains No Start Date 11/03/2016 Inactive warfarin 7.5 mg tablet RxNorm: 784553 1 Tablet(s) PO three times weekly No Start Date 09/19/2016 Inactive ondansetron HCl 4 mg tablet RxNorm: 527085 1 Tablet(s) PO Q4H as needed for nausea No Start Date 02/23/2018 Inactive Imitrex 100 mg tablet RxNorm: 102565 1 Tablet(s) PO at headache onset and may repeat in 2 hours if needed No Start Date 12/04/2015 Inactive Vitamin B12 1000mcg Tablet RxNorm: 1/2 Tablet(s) PO on , hurs, Sat and Sun and 1 tab all other days No Start Date 04/01/2018 Inactive baclofen 10 mg tablet RxNorm: 027499 1/2 Tablet(s) PO QAM and 1 tablet at bed time No Start Date 07/26/2015 Inactive tizanidine 4 mg tablet RxNorm: 567407 1-2 Tablet(s) PO QHS as needed for muscl e spasm and sleep No Start Date 06/02/2016 Inactive Flexeril 5 mg tablet RxNorm: 508301 1 Tablet(s) PO QD No Start Date 10/09/2015 Inactive methotrexate (PF) 20 mg/0.4 mL subcutaneous auto-injector RxNorm: 0038487 SQ QW No Start Date 12/25/2016 Inactive Bystolic 5 mg tablet RxNorm: 323468 1 Tablet(s) PO as needed No Start Date 03/15/2018 Inactive Questran Light 4 gra m powder for susp in a packet RxNorm: 451006 1 PO QD No Start Date 11/12/2015 Inactive Bystolic 10 mg tablet RxNorm: 053335 1 Tablet(s) PO QAM No Start Date 11/04/2017 Inactive warfarin 5 mg tablet RxNorm: 335905 1 Tablet(s) PO Fri Sun No Start Date 06/17/2017 Inactive hydrocodone 10 mg-ac etaminophen 325 mg tablet RxNorm: 061664 1 Tablet(s) PO 4-6hou rs as needed for pain No Start Date 08/31/2015 Inactive cyclobenzaprine 5 mg tablet RxNorm: 031488 1 Tablet(s) PO QPM No Start Date 12/16/2016 Inactive Lovenox 100 mg/mL carmona bcutaneous syringe RxNorm: 054603 1 Milliliter(s) SQ QD No Start Date 06/07/2015 Inactive Levsin 0.125 mg tablet RxNorm: 1826816 1 Tablet(s) PO QID as needed for spasm No Start Date 02/24/2017 Inactive Savella 12.5 mg (5)- 25 mg(8)-50mg(42) tablets in a dose pack RxNorm: 155905 Tablet(s) PO as directed No Start Date 07/09/2015 Inactive Coumadin 10 mg tablet RxNorm: 406110 1 Tablet(s) PO QD No Start Date 2015 Inactive tramadol 50 mg tablet RxNorm: 926885 1 Tablet(s) PO TID as needed for pain No Start Date 03/31/2017 Inactive BuSpar 5 mg tablet RxNorm: 188372 1 Tablet(s) PO BID No Start Date 02/02/2017 Inactive Vistaril 25 mg capsule RxNorm: 595648 1 Capsule(s) PO BID No Start Date 06/19/2015 Inactive Tessalon Perles 100 mg capsule RxNorm: 662127 1 Capsule(s) PO TID a s needed for cough No Start Date 01/19/2019 Inactive promethazine 12.5 mg tablet RxNorm: 341532 1 Tablet(s) PO Q6H as needed No Start Date 04/22/2018 Inactive Coumadin 7.5 mg tablet RxNorm: 778256 1 Tablet(s) PO Fri and Friday No Start Date 03/13/2016 Inactive Imitrex 50 mg tablet RxNorm: 562089 1 Tablet(s) PO at headache. repeat in 2 hours if no relief. no more than 2 tabs per day No Start Date 12/25/2017 Inactive acetazolamide 125 mg tablet RxNorm: 241440 1 Tablet(s) PO BID No Start Date 09/13/2015 Inactive methotrexate (PF) 12 .5 mg/0.4 mL subcutaneous auto-injector RxNorm: 3552059 1 Milliliter(s) SQ QW No Start Date 03/31/2017 Inactive Bystolic 10 mg tablet RxNorm: 579753 1 Tablet(s) PO QAM No Start Date 03/25/2018 Inactive Zithromax Z-Juan Francisco 250 mg tablet RxNorm: 728257 Tablet(s) PO As Direc liane No Start Date 05/11/2017 Inactive Bystolic 20 mg tablet RxNorm: 251639 1 Tablet(s) PO QD No Start Date 03/15/2018 Inactive Questran 4 gram powd er for susp in a packet RxNorm: 214012 1 Unit(s) PO QD No Start Date 12/16/2016 Inactive Vitamin D3 1,000 uni t tablet RxNorm: 825825 1 Tablet(s) PO QD No Start Date 04/01/2018 Inactive Coumadin 5 mg tablet RxNorm: 180903 1 Tablet(s) PO Friday through Friday No Start Date 03/13/2016 Inactive warfarin 5 mg tablet RxNorm: 306885 1 Tablet(s) PO four days per week No Start Date 04/01/2018 Inactive ProAir HFA 90 mcg/ac tuation aerosol inhaler RxNorm: 118091 2 Puff(s) INH Q4H as needed No Start Date 01/19/2019 Inactive Bystolic 5 mg tablet RxNorm: 812373 1 Tablet(s) PO QHS No Start Date 03/25/2018 Inactive Compazine 10 mg tablet RxNorm: 430760 1 Tablet(s) PO TID as needed for nausea No Start Date 12/17/2016 Inactive Pyridium 200 mg tablet RxNorm: 5449310 1 Tablet(s) PO TID for bladder spasms No Start Date 02/26/2017 Inactive hydrocodone 10 mg-ac etaminophen 325 mg tablet RxNorm: 635461 1 Tablet(s) PO as nee ded No Start Date 06/28/2015 Inactive warfarin 7.5 mg tablet RxNorm: 062749 1 Tablet(s) PO on Friday and No Start Date 04/01/2018 Inactive promethazine 25 mg t ablet RxNorm: 090523 1 Tablet(s) PO Q4H as needed for nausea No Start Date 12/04/2015 Inactive Lovenox 30 mg/0.3 mL subcutaneous syringe RxNorm: 397121 1 Milliliter(s) SQ QD No Start Date [...] 01/19/2019 COUGH ICD-10: R05 ICD-9: 786.2 01/19/2019 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 ICD-10: Z79.01 [...] and perineal pain ICD-10: R10 .2 ICD-9: KAT3419 02/10/2017 Hematuria, unspecified ICD-10: R31.9 ICD-9: 599.70 [...] history of intestitial cystitis ~generic 05/24/[facility] Results Observation Observation Code Item Item Code Result Date ANTI STREPTOLYSIN O TITER(ASO) 11553 ASO Titr 110 IU/mL 9 MYCOPLASMA ANTIBODY, IFA [id number] Mycoplas Ab IgG 1:64 01/20/2019 MYCOPLASMA ANTIBODY, IFA [id number] Mycoplas Ab IgM <1:10 01/20/2019 MYCOPLASMA ANTIBODY, IFA [id number] Mycoplasma Intp See Below 01/20/2019 LEGIONELLA [id number] Legio adore Ab <1:128 01/20/2019 HEPATIC FUNCTION PANEL A 98973 Total Protein 6.3 g/dL 01/19/2019 HEPATIC FUNCTION PANEL A 53565 AST 16 U/L 01/19/2019 HEPATIC FUNCTION PANEL A 43084 ALK PHOS 52 U/L 01/19/2019 HEPATIC FUNCTION PANEL A 26707 Bili Total 0.2 mg/dL 01/19/2019 HEPATIC FUNCTION PANEL A 23097 ALT 20 U/L 01/19/2019 HEPATIC FUNCTION PANEL A 60945 ALBUMIN 4.3 g/dL 01/19/2019 HEPATIC FUNCTION PANEL A 39800 Bili Direct 0.1 mg/dL 01/19/2019 PT 3856458 PT 27.5 Seconds 01/19/2019 PT 9261482 INR 2.6 01/19/2019 COMPLETE BLOOD COUNT 7868738 WBC 11.1 10e9/L 01/19/2019 COMPLETE BLOOD COUNT 0876629 RBC 4.14 10e12/L 9 COMPLETE BLOOD COUNT 0039737 HEMOGLOBIN 13.9 g/dL 01/19/2019 COMPLETE BLOOD COUNT 3141503 HEMATOCRIT 40.7 % 01/19/2019 COMPLETE BLOOD COUNT 5759393 MCV 98.3 fL 01/19/2019 COMPLETE BLOOD COUNT 5936386 MCH 33.6 pg 01/19/2019 COMPLETE BLOOD COUNT 9819526 MCHC 34.2 g/dL 01/19/2019 COMPLETE BLOOD COUNT 8153164 PLATELET COUNT 334 10e9/L 01/19/2019 COMPLETE BLOOD COUNT 0521019 Mean Plt Volume 8.9 fL 01/19/2019 COMPLETE BLOOD COUNT 5547089 Neut Auto 60.2 % 01/19/2019 COMPLETE BLOOD COUNT 6203413 Lymph Auto 32.5 % 01/19/2019 COMPLETE BLOOD COUNT 0126932 [place] Auto 6.1 % 01/19/2019 COMPLETE BLOOD COUNT 2753419 RDW 12.5 % 01/19/2019 COMPLETE BLOOD COUNT 5599739 Eos Auto 1.0 % 01/19/2019 COMPLETE BLOOD COUNT 1713605 Baso Auto 0.2 % 01/19/2019 COMPLETE BLOOD COUNT 2888391 Neutrophil Abs 6.68 10e9/L 01/19/2019 COMPLETE BLOOD COUNT 6328449 Lymphocyte Abs 3.61 10e9/L 01/19/2019 COMPLETE BLOOD COUNT 9123337 Monocyte Abs 0.68 10e9/L 01/19/2019 COMPLETE BLOOD COUNT 8748488 Eosinophil Abs 0.11 10e9/L 01/19/2019 COMPLETE BLOOD COUNT 2019282 RDW-SD 43.4 fL 01/19/2019 COMPLETE BLOOD COUNT 5795201 Basophil Abs 0.02 10e9/L 01/19/2019 COMPLETE BLOOD COUNT 6764683 WBC 7.4 10e9/L 12/18/2018 COMPLETE BLOOD COUNT 9683230 RBC 4.32 10e12/L 9 COMPLETE BLOOD COUNT 0948236 HEMOGLOBIN 14.2 g/dL 12/18/2018 COMPLETE BLOOD COUNT 0040900 HEMATOCRIT 42.0 % 12/18/2018 COMPLETE BLOOD COUNT 3492909 MCV 97.2 fL 12/18/2018 COMPLETE BLOOD COUNT 1999365 MCH 32.9 pg 12/18/2018 COMPLETE BLOOD COUNT 6200961 MCHC 33.8 g/dL 12/18/2018 COMPLETE BLOOD COUNT 2746787 PLATELET COUNT 273 10e9/L 12/18/2018 COMPLETE BLOOD COUNT 2651141 Mean Plt Volume 9.4 fL 12/18/2018 COMPLETE BLOOD COUNT 5488422 Neut Auto 57.7 % 12/18/2018 COMPLETE BLOOD COUNT 3201505 Lymph Auto 34.8 % 12/18/2018 COMPLETE BLOOD COUNT 2626802 [place] Auto 6.4 % 12/18/2018 COMPLETE BLOOD COUNT 2071395 RDW 12.6 % 12/18/2018 COMPLETE BLOOD COUNT 2967092 Eos Auto 0.8 % 12/18/2018 COMPLETE BLOOD COUNT 5878168 Baso Auto 0.3 % 12/18/2018 COMPLETE BLOOD COUNT 7863691 Neutrophil Abs 4.27 10e9/L 12/18/2018 COMPLETE BLOOD COUNT 8358250 Lymphocyte Abs 2.58 10e9/L 12/18/2018 COMPLETE BLOOD COUNT 3180259 Monocyte Abs 0.47 10e9/L 12/18/2018 COMPLETE BLOOD COUNT 6795265 Eosinophil Abs 0.06 10e9/L 12/18/2018 COMPLETE BLOOD COUNT 7199745 RDW-SD 43.8 fL 12/18/2018 COMPLETE BLOOD COUNT 8063430 Basophil Abs 0.02 10e9/L 12/18/2018 GFR CALC 2657469 GFR Non Afr Amr >60 mL/min 12/18/2018 GFR CALC 6827728 GFR Afr Amr >60 mL/min 12/18/2018 COMPREHENSIVE METABOLIC 71891 AST 33 U/L 12/18/2018 COMPREHENSIVE METABOLIC 58727 ALT 60 U/L 12/18/2018 COMPREHENSIVE METABOLIC 00968 BUN 9 mg/dL 12/18/2018 COMPREHENSIVE METABOLIC 58455 ALBUMIN 4.3 g/dL 12/18/2018 COMPREHENSIVE METABOLIC 90174 CHLORIDE 104 mmol/L 12/18/2018 COMPREHENSIVE METABOLIC 47257 Bili Total 0.3 mg/dL 12/18/2018 COMPREHENSIVE METABOLIC 03268 ALK PHOS 63 U/L 12/18/2018 COMPREHENSIVE METABOLIC 23014 SODIUM 139 mmol/L 12/18/2018 COMPREHENSIVE METABOLIC 13813 CREATININE 0.55 mg/dL 12/18/2018 COMPREHENSIVE METABOLIC 84832 CALCIUM 9.0 mg/dL 12/18/2018 COMPREHENSIVE METABOLIC 03585 POTASSIUM 3.9 mmol/L 12/18/2018 COMPREHENSIVE METABOLIC 82718 Total Protein 6.4 g/dL 12/18/2018 COMPREHENSIVE METABOLIC 90155 Glucose 83 mg/dL 12/18/2018 COMPREHENSIVE METABOLIC 44868 Bicarbonate 27 mmol/L 12/18/2018 COMPREHENSIVE METABOLIC 44421 AGAP 8 mmol/L 12/18/2018 ERYTHROCYTE SEDIMENTATION RATE 25030 Sed Rate 17 mm/hr 12/04/2018 MEAN GLUC 7218542 Calc M zach Gluc 108 mg/dL 12/03/2018 VITAMIN B 12 04430 VITAM IN B12 329 pg/mL 12/03/2018 COMPREHENSIVE METABOLIC 73927 AST 18 U/L 12/03/2018 COMPREHENSIVE METABOLIC 65144 ALT 21 U/L 12/03/2018 COMPREHENSIVE METABOLIC 13884 BUN 11 mg/dL 12/03/2018 COMPREHENSIVE METABOLIC 98751 ALBUMIN 4.5 g/dL 12/03/2018 COMPREHENSIVE METABOLIC 25933 CHLORIDE 106 mmol/L 12/03/2018 COMPREHENSIVE METABOLIC 58705 Bili Total 0.4 mg/dL 12/03/2018 COMPREHENSIVE METABOLIC 93376 ALK PHOS 49 U/L 12/03/2018 COMPREHENSIVE METABOLIC 09660 SODIUM 138 mmol/L 12/03/2018 COMPREHENSIVE METABOLIC 87469 CREATININE 0.61 mg/dL 12/03/2018 COMPREHENSIVE METABOLIC 21748 CALCIUM 9.2 mg/dL 12/03/2018 COMPREHENSIVE METABOLIC 62408 POTASSIUM 3.7 mmol/L 12/03/2018 COMPREHENSIVE METABOLIC 41157 Total Protein 6.8 g/dL 12/03/2018 COMPREHENSIVE METABOLIC 25219 Glucose 94 mg/dL 12/03/2018 COMPREHENSIVE METABOLIC 67463 Bicarbonate 25 mmol/L 12/03/2018 COMPREHENSIVE METABOLIC 76081 AGAP 7 mmol/L 12/03/2018 FREE T4 59855 T4 Free 0.96 ng/dL 12/03/2018 ASSAY TRIIODOTHYRONINE (T3) 45714 T3 Total 1.02 ng/mL 12/03/2018 GFR CALC 8943486 GFR Non Afr Amr >60 mL/min 12/03/2018 GFR CALC 5160025 GFR Afr Amr >60 mL/min 12/03/2018 GLYCOSYLATED HEMOGLOBIN TEST 90016 Hgb A1c 99883-0 5.4 % 12/03/2018 VITAMIN D TOTAL (25 HYDROXY) 66829 Vitamin D 25 [place] 11.1 ng/mL 12/03/2018 IRON 04202 Iron 106 ug/dL 12/03/2018 THYROID STIMULATING HORMONE 68840 TSH 0.978 uIU/mL 9 COMPLETE BLOOD COUNT 4898615 WBC 9.4 10e9/L 12/03/2018 COMPLETE BLOOD COUNT 2465945 RBC 4.41 10e12/L 9 COMPLETE BLOOD COUNT 1249677 HEMOGLOBIN 14.5 g/dL 12/03/2018 COMPLETE BLOOD COUNT 0486741 HEMATOCRIT 43.0 % 12/03/2018 COMPLETE BLOOD COUNT 0058126 MCV 97.5 fL 12/03/2018 COMPLETE BLOOD COUNT 5961063 MCH 32.9 pg 12/03/2018 COMPLETE BLOOD COUNT 8535698 MCHC 33.7 g/dL 12/03/2018 COMPLETE BLOOD COUNT 9543957 PLATELET COUNT 336 10e9/L 12/03/2018 COMPLETE BLOOD COUNT 5780437 Mean Plt Volume 9.1 fL 12/03/2018 COMPLETE BLOOD COUNT 0213934 Neut Auto 56.4 % 12/03/2018 COMPLETE BLOOD COUNT 6841587 Lymph Auto 35.6 % 12/03/2018 COMPLETE BLOOD COUNT 1024572 [place] Auto 6.8 % 12/03/2018 COMPLETE BLOOD COUNT 6608771 RDW 12.6 % 12/03/2018 COMPLETE BLOOD COUNT 7819400 Eos Auto 1.0 % 12/03/2018 COMPLETE BLOOD COUNT 5532769 Baso Auto 0.2 % 12/03/2018 COMPLETE BLOOD COUNT 8644123 Neutrophil Abs 5.30 10e9/L 12/03/2018 COMPLETE BLOOD COUNT 8219356 Lymphocyte Abs 3.35 10e9/L 12/03/2018 COMPLETE BLOOD COUNT 0944461 Monocyte Abs 0.64 10e9/L 12/03/2018 COMPLETE BLOOD COUNT 8214148 Eosinophil Abs 0.09 10e9/L 12/03/2018 COMPLETE BLOOD COUNT 1881687 RDW-SD 44.3 fL 12/03/2018 COMPLETE BLOOD COUNT 4643866 Basophil Abs 0.02 10e9/L 12/03/2018 FERRITIN 09157 FERRITIN 87.8 ng/mL 12/03/2018 PT 0240722 PT 23.1 Seconds 11/30/2018 PT 9554084 INR 2.0 11/30/2018 ANTI STREPTOLYSIN O TITER(ASO) 81851 ASO Titr 117 IU/mL 9 COMPLETE BLOOD COUNT 1611832 WBC 10.7 10e9/L 11/11/2018 COMPLETE BLOOD COUNT 9120946 RBC 4.42 10e12/L 9 COMPLETE BLOOD COUNT 8692156 HEMOGLOBIN 14.5 g/dL 11/11/2018 COMPLETE BLOOD COUNT 4830501 HEMATOCRIT 43.1 % 11/11/2018 COMPLETE BLOOD COUNT 6339363 MCV 97.5 fL 11/11/2018 COMPLETE BLOOD COUNT 0484532 MCH 32.8 pg 11/11/2018 COMPLETE BLOOD COUNT 6408014 MCHC 33.6 g/dL 11/11/2018 COMPLETE BLOOD COUNT 1037053 PLATELET COUNT 324 10e9/L 11/11/2018 COMPLETE BLOOD COUNT 2199639 Mean Plt Volume 9.2 fL 11/11/2018 COMPLETE BLOOD COUNT 5605525 Neut Auto 62.3 % 11/11/2018 COMPLETE BLOOD COUNT 9495037 Lymph Auto 30.8 % 11/11/2018 COMPLETE BLOOD COUNT 7999630 [place] Auto 6.1 % 11/11/2018 COMPLETE BLOOD COUNT 0886317 RDW 12.7 % 11/11/2018 COMPLETE BLOOD COUNT 2866466 Eos Auto 0.7 % 11/11/2018 COMPLETE BLOOD COUNT 4085928 Baso Auto 0.1 % 11/11/2018 COMPLETE BLOOD COUNT 3875391 Neutrophil Abs 6.67 10e9/L 11/11/2018 COMPLETE BLOOD COUNT 9429213 Lymphocyte Abs 3.30 10e9/L 11/11/2018 COMPLETE BLOOD COUNT 0260060 Monocyte Abs 0.65 10e9/L 11/11/2018 COMPLETE BLOOD COUNT 9620155 Eosinophil Abs 0.07 10e9/L 11/11/2018 COMPLETE BLOOD COUNT 3826789 RDW-SD 44.3 fL 11/11/2018 COMPLETE BLOOD COUNT 4548059 Basophil Abs 0.01 10e9/L 11/11/2018 PT 7086549 PT 23.4 Seconds 10/27/2018 PT 0438503 INR 2.0 10/27/2018 COMPLETE BLOOD COUNT 1842346 WBC 8.1 10e9/L 09/25/2018 COMPLETE BLOOD COUNT 3077426 RBC 4.37 10e12/L 9 COMPLETE BLOOD COUNT 9427997 HEMOGLOBIN 14.5 g/dL 09/25/2018 COMPLETE BLOOD COUNT 0047171 HEMATOCRIT 42.1 % 09/25/2018 COMPLETE BLOOD COUNT 9706078 MCV 96.3 fL 09/25/2018 COMPLETE BLOOD COUNT 2978698 MCH 33.2 pg 09/25/2018 COMPLETE BLOOD COUNT 1319675 MCHC 34.4 g/dL 09/25/2018 COMPLETE BLOOD COUNT 9347053 PLATELET COUNT 313 10e9/L 09/25/2018 COMPLETE BLOOD COUNT 4385879 Mean Plt Volume 9.2 fL 09/25/2018 COMPLETE BLOOD COUNT 2671330 Neut Auto 57.4 % 09/25/2018 COMPLETE BLOOD COUNT 3299834 Lymph Auto 35.0 % 09/25/2018 COMPLETE BLOOD COUNT 7764528 [place] Auto 6.3 % 09/25/2018 COMPLETE BLOOD COUNT 1299456 RDW 12.6 % 09/25/2018 COMPLETE BLOOD COUNT 4709726 Eos Auto 1.1 % 09/25/2018 COMPLETE BLOOD COUNT 4741450 Baso Auto 0.2 % 09/25/2018 COMPLETE BLOOD COUNT 1802175 Neutrophil Abs 4.65 10e9/L 09/25/2018 COMPLETE BLOOD COUNT 3743372 Lymphocyte Abs 2.84 10e9/L 09/25/2018 COMPLETE BLOOD COUNT 9733420 Monocyte Abs 0.51 10e9/L 09/25/2018 COMPLETE BLOOD COUNT 7271354 Eosinophil Abs 0.09 10e9/L 09/25/2018 COMPLETE BLOOD COUNT 9349478 RDW-SD 43.0 fL 09/25/2018 COMPLETE BLOOD COUNT 5188366 Basophil Abs 0.02 10e9/L 09/25/2018 COMPREHENSIVE METABOLIC 44847 AST 15 U/L 09/25/2018 COMPREHENSIVE METABOLIC 62535 ALT 20 U/L 09/25/2018 COMPREHENSIVE METABOLIC 60224 BUN 9 mg/dL 09/25/2018 COMPREHENSIVE METABOLIC 25955 ALBUMIN 4.3 g/dL 09/25/2018 COMPREHENSIVE METABOLIC 65462 CHLORIDE 107 mmol/L 09/25/2018 COMPREHENSIVE METABOLIC 91901 Bili Total 0.4 mg/dL 09/25/2018 COMPREHENSIVE METABOLIC 93267 ALK PHOS 51 U/L 09/25/2018 COMPREHENSIVE METABOLIC 10068 SODIUM 139 mmol/L 09/25/2018 COMPREHENSIVE METABOLIC 63868 CREATININE 0.61 mg/dL 09/25/2018 COMPREHENSIVE METABOLIC 19035 CALCIUM 9.1 mg/dL 09/25/2018 COMPREHENSIVE METABOLIC 45234 POTASSIUM 3.7 mmol/L 09/25/2018 COMPREHENSIVE METABOLIC 27069 Total Protein 6.3 g/dL 09/25/2018 COMPREHENSIVE METABOLIC 19241 Glucose 92 mg/dL 09/25/2018 COMPREHENSIVE METABOLIC 22103 Bicarbonate 24 mmol/L 09/25/2018 COMPREHENSIVE METABOLIC 43588 AGAP 8 mmol/L 09/25/2018 PT [id number] PT 25.0 Seconds 09/25/2018 PT [id number] INR 2.2 09/25/2018 GFR CALC 7207637 GFR Non Afr Amr >60 mL/min 09/25/2018 GFR CALC 2255982 GFR Afr Amr >60 mL/min 09/25/2018 PT [id number] PT 25.7 Seconds 05/12/2018 PT [id number] INR 2.3 05/12/2018 PT [id number] PT TNP:Improper Specimen 04/30/2018 PT [id number] INR TNP:Improper Specimen 04/30/2018 PT 5078005 PT 26.3 Seconds 02/05/2018 PT [id number] INR 2.4 02/05/2018 ANTI STREPTOLYSIN O TITER(ASO) 46595 ASO Titr 118 IU/mL 8 VITAMIN B 12 62594 VITAM IN B12 302 pg/mL 12/02/2017 VITAMIN D TOTAL (25 HYDROXY) 46281 Vitamin D 25 OH 27.0 ng/mL 12/02/2017 PT 7133383 PT 17.3 Seconds 12/01/2017 PT [id number] INR 1.4 12/01/2017 ANTI STREPTOLYSIN O TITER(ASO) 45370 ASO Titr 127 IU/mL 8 ANTI STREPTOLYSIN O TITER(ASO) 96582 ASO Titr 130 IU/mL 8 ANTINUCLEAR ANTIBODY SCREEN 27601 MAGALIE Ab Scr <1:80 10/02/2017 RA FACTOR 10257 RA FACTOR <20 IU/mL 10/02/2017 RA FACTOR 90884 RA Facto r Intp Negative 10/02/2017 VITAMIN D TOTAL (25 HYDROXY) 38328 Vitamin D 25 OH 18 ng/mL 8 IRON 19353 Iron 70 ug/dL 10/01/2017 VITAMIN B 12 46426 VITAM IN B12 377 pg/mL 10/01/2017 FREE T4 55987 T4 Free 1.31 ng/dL 10/01/2017 URIC ACID 37708 URIC ACID 3.9 mg/dL 10/01/2017 FERRITIN 64678 FERRITIN 68.0 ng/mL 10/01/2017 THYROID STIMULATING HORMONE 53537 TSH 1.401 uIU/mL 8 GLYCOSYLATED HEMOGLOBIN TEST 83540 Hgb A1c 33095-3 5.4 % 10/01/2017 FOLIC ACID 61403 Folate >24.0 ng/mL 10/01/2017 ASSAY TRIIODOTHYRONINE (T3) 42879 T3 Total 1.0 ng/mL 10/01/2017 ERYTHROCYTE SEDIMENTATION RATE 60306 Sed Rate 5 mm/hr 10/01/2017 MEAN GLUC [id number] Calc M zach Gluc 108 mg/dL 10/01/2017 PT 0052168 PT 18.6 Seconds 08/07/2017 PT 5146680 INR 1.5 08/07/2017 COMPREHENSIVE METABOLIC 75246 AST 21 U/L 08/07/2017 COMPREHENSIVE METABOLIC 27757 ALT 37 U/L 08/07/2017 COMPREHENSIVE METABOLIC 98660 BUN 14 mg/dL 08/07/2017 COMPREHENSIVE METABOLIC 19761 ALBUMIN 4.5 g/dL 08/07/2017 COMPREHENSIVE METABOLIC 46943 CHLORIDE 104 mmol/L 08/07/2017 COMPREHENSIVE METABOLIC 44968 Bili Total 0.3 mg/dL 08/07/2017 COMPREHENSIVE METABOLIC 98433 ALK PHOS 55 U/L 08/07/2017 COMPREHENSIVE METABOLIC 90148 SODIUM 139 mmol/L 08/07/2017 COMPREHENSIVE METABOLIC 80196 CREATININE 0.77 mg/dL 08/07/2017 COMPREHENSIVE METABOLIC 18499 CALCIUM 9.2 mg/dL 08/07/2017 COMPREHENSIVE METABOLIC 97466 POTASSIUM 3.7 mmol/L 08/07/2017 COMPREHENSIVE METABOLIC 71781 Total Protein 6.5 g/dL 08/07/2017 COMPREHENSIVE METABOLIC 79145 Glucose 101 mg/dL 08/07/2017 COMPREHENSIVE METABOLIC 76699 Bicarbonate 25 mmol/L 08/07/2017 COMPREHENSIVE METABOLIC 08740 AGAP 10 mmol/L 08/07/2017 COMPLETE BLOOD COUNT 4272909 WBC 9.4 10e9/L 08/07/2017 COMPLETE BLOOD COUNT 1815184 RBC 4.38 10e12/L 8 COMPLETE BLOOD COUNT 1610123 HEMOGLOBIN 14.5 g/dL 08/07/2017 COMPLETE BLOOD COUNT 9161118 HEMATOCRIT 42.7 % 08/07/2017 COMPLETE BLOOD COUNT 3199365 MCV 97.5 fL 08/07/2017 COMPLETE BLOOD COUNT 4521271 MCH 33.1 pg 08/07/2017 COMPLETE BLOOD COUNT 0588644 MCHC 34.0 g/dL 08/07/2017 COMPLETE BLOOD COUNT 5546820 PLATELET COUNT 313 10e9/L 08/07/2017 COMPLETE BLOOD COUNT 0991063 Mean Plt Volume 8.6 fL 08/07/2017 COMPLETE BLOOD COUNT 6176169 Neut Auto 51.6 % 08/07/2017 COMPLETE BLOOD COUNT 6020384 Lymph Auto 40.0 % 08/07/2017 COMPLETE BLOOD COUNT 8699994 [place] Auto 6.8 % 08/07/2017 COMPLETE BLOOD COUNT 8340179 RDW 12.9 % 08/07/2017 COMPLETE BLOOD COUNT 1335348 Eos Auto 1.4 % 08/07/2017 COMPLETE BLOOD COUNT 0507753 Baso Auto 0.2 % 08/07/2017 COMPLETE BLOOD COUNT 1868370 Neutrophil Abs 4.85 10e9/L 08/07/2017 COMPLETE BLOOD COUNT 0089808 Lymphocyte Abs 3.76 10e9/L 08/07/2017 COMPLETE BLOOD COUNT 6642047 Monocyte Abs 0.64 10e9/L 08/07/2017 COMPLETE BLOOD COUNT 0756210 Eosinophil Abs 0.13 10e9/L 08/07/2017 COMPLETE BLOOD COUNT 9960811 RDW-SD 45.1 fL 08/07/2017 COMPLETE BLOOD COUNT 8635603 Basophil Abs 0.02 10e9/L 08/07/2017 GFR CALC 1964095 GFR Afr Amr >60 mL/min 08/07/2017 GFR CALC 6957593 GFR Non Afr Amr >60 mL/min 08/07/2017 COMPLETE BLOOD COUNT 5644085 WBC 9.2 10e9/L 07/15/2017 COMPLETE BLOOD COUNT 0607112 RBC 4.70 10e12/L 8 COMPLETE BLOOD COUNT 4008918 HEMOGLOBIN 15.4 g/dL 07/15/2017 COMPLETE BLOOD COUNT 3240642 HEMATOCRIT 46.2 % 07/15/2017 COMPLETE BLOOD COUNT 9222392 MCV 98.3 fL 07/15/2017 COMPLETE BLOOD COUNT 4513790 MCH 32.8 pg 07/15/2017 COMPLETE BLOOD COUNT 8415442 MCHC 33.3 g/dL 07/15/2017 COMPLETE BLOOD COUNT 7025948 PLATELET COUNT 348 10e9/L 07/15/2017 COMPLETE BLOOD COUNT 5899709 Mean Plt Volume 8.9 fL 07/15/2017 COMPLETE BLOOD COUNT 0344622 Neut Auto 60.6 % 07/15/2017 COMPLETE BLOOD COUNT 3016518 Lymph Auto 30.9 % 07/15/2017 COMPLETE BLOOD COUNT 2892797 [place] Auto 7.1 % 07/15/2017 COMPLETE BLOOD COUNT 5833316 RDW 13.1 % 07/15/2017 COMPLETE BLOOD COUNT 5990957 Eos Auto 1.2 % 07/15/2017 COMPLETE BLOOD COUNT 4376357 Baso Auto 0.2 % 07/15/2017 COMPLETE BLOOD COUNT 1191411 Neutrophil Abs 5.58 10e9/L 07/15/2017 COMPLETE BLOOD COUNT 2289009 Lymphocyte Abs 2.84 10e9/L 07/15/2017 COMPLETE BLOOD COUNT 1906151 Monocyte Abs 0.65 10e9/L 07/15/2017 COMPLETE BLOOD COUNT 8141474 Eosinophil Abs 0.11 10e9/L 07/15/2017 COMPLETE BLOOD COUNT 2259040 Basophil Abs 0.02 10e9/L 07/15/2017 COMPLETE BLOOD COUNT 7725605 RDW-SD 46.1 fL 07/15/2017 GFR CALC 6147925 GFR Afr Amr >60 mL/min 07/15/2017 GFR CALC 7125925 GFR Non Afr Amr >60 mL/min 07/15/2017 COMPREHENSIVE METABOLIC 02552 AST 16 U/L 07/15/2017 COMPREHENSIVE METABOLIC 93620 ALT 20 U/L 07/15/2017 COMPREHENSIVE METABOLIC 05051 BUN 13 mg/dL 07/15/2017 COMPREHENSIVE METABOLIC 48312 ALBUMIN 4.6 g/dL 07/15/2017 COMPREHENSIVE METABOLIC 57211 CHLORIDE 106 mmol/L 07/15/2017 COMPREHENSIVE METABOLIC 33886 Bili Total 0.3 mg/dL 07/15/2017 COMPREHENSIVE METABOLIC 62692 ALK PHOS 50 U/L 07/15/2017 COMPREHENSIVE METABOLIC 69596 SODIUM 137 mmol/L 07/15/2017 COMPREHENSIVE METABOLIC 19291 CREATININE 0.62 mg/dL 07/15/2017 COMPREHENSIVE METABOLIC 07037 CALCIUM 9.2 mg/dL 07/15/2017 COMPREHENSIVE METABOLIC 69041 POTASSIUM 3.8 mmol/L 07/15/2017 COMPREHENSIVE METABOLIC 60744 Total Protein 6.7 g/dL 07/15/2017 COMPREHENSIVE METABOLIC 00678 Glucose 83 mg/dL 07/15/2017 COMPREHENSIVE METABOLIC 14417 Bicarbonate 30 mmol/L 07/15/2017 COMPREHENSIVE METABOLIC 15077 AGAP 1 mmol/L 07/15/2017 THYROID STIMULATING HORMONE 16311 TSH 2.111 uIU/mL 201 7 COMPREHENSIVE METABOLIC 84931 AST 33 U/L 08/27/2016 COMPREHENSIVE METABOLIC 02041 ALT 55 U/L 08/27/2016 COMPREHENSIVE METABOLIC 64090 BUN 11 mg/dL 08/27/2016 COMPREHENSIVE METABOLIC 97838 ALBUMIN 4.6 g/dL 08/27/2016 COMPREHENSIVE METABOLIC 47670 CHLORIDE 103 mmol/L 08/27/2016 COMPREHENSIVE METABOLIC 47967 Bili Total 0.3 mg/dL 08/27/2016 COMPREHENSIVE METABOLIC 71682 ALK PHOS 60 U/L 08/27/2016 COMPREHENSIVE METABOLIC 81072 SODIUM 140 mmol/L 08/27/2016 COMPREHENSIVE METABOLIC 81592 CREATININE 0.69 mg/dL 08/27/2016 COMPREHENSIVE METABOLIC 35593 CALCIUM 9.3 mg/dL 08/27/2016 COMPREHENSIVE METABOLIC 41300 POTASSIUM 3.7 mmol/L 08/27/2016 COMPREHENSIVE METABOLIC 33202 Total Protein 6.8 g/dL 08/27/2016 COMPREHENSIVE METABOLIC 14079 Glucose 79 mg/dL 08/27/2016 COMPREHENSIVE METABOLIC 79593 Bicarbonate 25 mmol/L 08/27/2016 COMPREHENSIVE METABOLIC 93620 AGAP 12 mmol/L 08/27/2016 COMPLETE BLOOD COUNT 8946214 WBC 9.4 10e9/L 08/27/2016 COMPLETE BLOOD COUNT 1585391 RBC 4.35 10e12/L 7 COMPLETE BLOOD COUNT 9523866 HEMOGLOBIN 14.2 g/dL 08/27/2016 COMPLETE BLOOD COUNT 3763024 HEMATOCRIT 41.5 % 08/27/2016 COMPLETE BLOOD COUNT 9456608 MCV 95.4 fL 08/27/2016 COMPLETE BLOOD COUNT 1120885 MCH 32.6 pg 08/27/2016 COMPLETE BLOOD COUNT 6578059 MCHC 34.2 g/dL 08/27/2016 COMPLETE BLOOD COUNT 1592742 PLATELET COUNT 289 10e9/L 08/27/2016 COMPLETE BLOOD COUNT 3128636 Mean Plt Volume 9.8 fL 08/27/2016 COMPLETE BLOOD COUNT 5130251 Neut Auto 47.7 % 08/27/2016 COMPLETE BLOOD COUNT 3783581 Lymph Auto 44.2 % 08/27/2016 COMPLETE BLOOD COUNT 1641992 [place] Auto 6.6 % 08/27/2016 COMPLETE BLOOD COUNT 2984232 RDW 12.9 % 08/27/2016 COMPLETE BLOOD COUNT 4023167 Eos Auto 1.4 % 08/27/2016 COMPLETE BLOOD COUNT 3349122 Baso Auto 0.1 % 08/27/2016 COMPLETE BLOOD COUNT 9143013 Neutrophil Abs 4.48 10e9/L 08/27/2016 COMPLETE BLOOD COUNT 9129635 Lymphocyte Abs 4.15 10e9/L 08/27/2016 COMPLETE BLOOD COUNT 7480353 Monocyte Abs 0.62 10e9/L 08/27/2016 COMPLETE BLOOD COUNT 6814886 Eosinophil Abs 0.13 10e9/L 08/27/2016 COMPLETE BLOOD COUNT 3799029 RDW-SD 43.9 fL 08/27/2016 COMPLETE BLOOD COUNT 6408994 Basophil Abs 0.01 10e9/L 08/27/2016 PT 8041747 PT 15.0 Seconds 08/27/2016 PT 9890527 INR 1.2 08/27/2016 GFR CALC 0038016 GFR Afr Amr >60 mL/min 08/27/2016 GFR CALC 9924336 GFR Non Afr Amr >60 mL/min 08/27/2016 GFR CALC 0702921 GFR Non Afr Amr >60 mL/min 05/24/2016 GFR CALC 2357676 GFR Afr Amr >60 mL/min 05/24/2016 COMPREHENSIVE METABOLIC 90748 AST 19 U/L 05/24/2016 COMPREHENSIVE METABOLIC 33409 ALT 23 U/L 05/24/2016 COMPREHENSIVE METABOLIC 25161 BUN 12 mg/dL 05/24/2016 COMPREHENSIVE METABOLIC 94551 ALBUMIN 4.1 g/dL 05/24/2016 COMPREHENSIVE METABOLIC 01970 CHLORIDE 105 mmol/L 05/24/2016 COMPREHENSIVE METABOLIC 43610 Bili Total 0.4 mg/dL 05/24/2016 COMPREHENSIVE METABOLIC 17541 ALK PHOS 52 U/L 05/24/2016 COMPREHENSIVE METABOLIC 29607 SODIUM 136 mmol/L 05/24/2016 COMPREHENSIVE METABOLIC 36968 CREATININE 0.61 mg/dL 05/24/2016 COMPREHENSIVE METABOLIC 77374 CALCIUM 8.8 mg/dL 05/24/2016 COMPREHENSIVE METABOLIC 40004 POTASSIUM 3.8 mmol/L 05/24/2016 COMPREHENSIVE METABOLIC 31248 Total Protein 6.2 g/dL 05/24/2016 COMPREHENSIVE METABOLIC 08958 Glucose 95 mg/dL 05/24/2016 COMPREHENSIVE METABOLIC 58934 Bicarbonate 19 mmol/L 05/24/2016 COMPREHENSIVE METABOLIC 51831 AGAP 12 mmol/L 05/24/2016 PT 3135074 PT 25.7 Seconds 05/24/2016 PT 2440832 INR 2.4 05/24/2016 PT 2170786 PT 22.2 Seconds 04/11/2016 PT 7718275 INR 2.0 04/11/2016 PT 1078817 PT 16.5 Seconds 03/13/2016 PT 3405930 INR 1.4 03/13/2016 THYROID STIMULATING HORMONE 06239 TSH 1.151 uIU/mL 6 COMPLETE BLOOD COUNT 8703502 WBC 10.0 10e9/L 03/12/2016 COMPLETE BLOOD COUNT 2713403 RBC 4.08 10e12/L 6 COMPLETE BLOOD COUNT 2843283 HEMOGLOBIN 13.5 g/dL 03/12/2016 COMPLETE BLOOD COUNT 0054968 HEMATOCRIT 38.8 % 03/12/2016 COMPLETE BLOOD COUNT 3841146 MCV 95.1 fL 03/12/2016 COMPLETE BLOOD COUNT 6047642 MCH 33.1 pg 03/12/2016 COMPLETE BLOOD COUNT 9217886 MCHC 34.8 g/dL 03/12/2016 COMPLETE BLOOD COUNT 8751934 PLATELET COUNT 282 10e9/L 03/12/2016 COMPLETE BLOOD COUNT 3407718 Mean Plt Volume 9.6 fL 03/12/2016 COMPLETE BLOOD COUNT 1382116 Neut Auto 53.5 % 03/12/2016 COMPLETE BLOOD COUNT 5302108 Lymph Auto 39.0 % 03/12/2016 COMPLETE BLOOD COUNT 2503177 [place] Auto 5.9 % 03/12/2016 COMPLETE BLOOD COUNT 9752242 RDW 12.6 % 03/12/2016 COMPLETE BLOOD COUNT 0374714 Eos Auto 1.4 % 03/12/2016 COMPLETE BLOOD COUNT 8787148 Baso Auto 0.2 % 03/12/2016 COMPLETE BLOOD COUNT 1903204 Neutrophil Abs 5.35 10e9/L 03/12/2016 COMPLETE BLOOD COUNT 4591540 Lymphocyte Abs 3.90 10e9/L 03/12/2016 COMPLETE BLOOD COUNT 0136914 Monocyte Abs 0.59 10e9/L 03/12/2016 COMPLETE BLOOD COUNT 1762859 Eosinophil Abs 0.14 10e9/L 03/12/2016 COMPLETE BLOOD COUNT 9854183 RDW-SD 42.7 fL 03/12/2016 COMPLETE BLOOD COUNT 4981378 Basophil Abs 0.02 10e9/L 03/12/2016 COMPREHENSIVE METABOLIC 83814 AST 13 U/L 03/12/2016 COMPREHENSIVE METABOLIC 06440 ALT 11 U/L 03/12/2016 COMPREHENSIVE METABOLIC 45197 BUN 11 mg/dL 03/12/2016 COMPREHENSIVE METABOLIC 95479 ALBUMIN 4.1 g/dL 03/12/2016 COMPREHENSIVE METABOLIC 03126 CHLORIDE 107 mmol/L 03/12/2016 COMPREHENSIVE METABOLIC 97443 Bili Total 0.3 mg/dL 03/12/2016 COMPREHENSIVE METABOLIC 55635 ALK PHOS 41 U/L 03/12/2016 COMPREHENSIVE METABOLIC 46479 SODIUM 137 mmol/L 03/12/2016 COMPREHENSIVE METABOLIC 75053 CREATININE 0.62 mg/dL 03/12/2016 COMPREHENSIVE METABOLIC 85031 CALCIUM 9.0 mg/dL 03/12/2016 COMPREHENSIVE METABOLIC 81074 POTASSIUM 3.8 mmol/L 03/12/2016 COMPREHENSIVE METABOLIC 26932 Total Protein 6.1 g/dL 03/12/2016 COMPREHENSIVE METABOLIC 95872 Glucose 95 mg/dL 03/12/2016 COMPREHENSIVE METABOLIC 04691 Bicarbonate 23 mmol/L 03/12/2016 COMPREHENSIVE METABOLIC 02280 AGAP 7 mmol/L 03/12/2016 GFR CALC 0244160 GFR Non Afr Amr >60 mL/min 03/12/2016 GFR CALC 6705552 GFR Afr Amr >60 mL/min 03/12/2016 PT 1186758 PT 14.4 Seconds 02/12/2016 PT 0335331 INR 1.2 02/12/2016 PT 1219637 PT 26.1 Seconds 02/01/2016 PT 9545602 INR 2.4 02/01/2016 EB VIR[place] VCA G/M + EB[place] + [place] [address]|8 6665 x 2|86406 EBV VCA Ab IgG 3.70 11/13/2015 [place] VCA G/M + [place] + [place] [address]|8 6665 x 2|17134 EBV VCA Ab IgM 0.47 11/13/2015 [place] VCA G/M + [place] + [place] [address]|8 6665 x 2|00294 EBV Nuclear Ab 2.24 11/13/2015 EB VIRUS VCA G/M + EB[place] + [place] [address]|8 6665 x 2|96845 EBV Early Ab 1.37 11/13/2015 PT 1250812 PT 18.9 Seconds 11/10/2015 PT 3078800 INR 1.6 11/10/2015 PT 9511627 PT 16.8 Seconds 09/29/2015 PT 7784683 INR 1.4 09/29/2015 COMPLETE BLOOD COUNT 1453580 WBC 9.6 10e9/L 09/29/2015 COMPLETE BLOOD COUNT 9187594 RBC 4.51 10e12/L 6 COMPLETE BLOOD COUNT 3897028 HEMOGLOBIN 14.8 g/dL 09/29/2015 COMPLETE BLOOD COUNT 0066759 HEMATOCRIT 43.3 % 09/29/2015 COMPLETE BLOOD COUNT 2581369 MCV 96.0 fL 09/29/2015 COMPLETE BLOOD COUNT 7261000 MCH 32.8 pg 09/29/2015 COMPLETE BLOOD COUNT 8527648 MCHC 34.2 g/dL 09/29/2015 COMPLETE BLOOD COUNT 2952398 PLATELET COUNT 310 10e9/L 09/29/2015 COMPLETE BLOOD COUNT 5412412 Mean Plt Volume 9.7 fL 09/29/2015 COMPLETE BLOOD COUNT 3555501 Neutrophil 60.3 % 09/29/2015 COMPLETE BLOOD COUNT 5831119 Lymph Auto % 32.4 % 09/29/2015 COMPLETE BLOOD COUNT 1347501 Monocyte Auto % 6.5 % 09/29/2015 COMPLETE BLOOD COUNT 0347286 RDW 12.8 % 09/29/2015 COMPLETE BLOOD COUNT 1892707 Eosinophil 0.7 % 09/29/2015 COMPLETE BLOOD COUNT 2460264 Basophil 0.1 % 09/29/2015 COMPLETE BLOOD COUNT 8131587 Neutrophil Abs 5.79 10e9/L 09/29/2015 COMPLETE BLOOD COUNT 5762479 Lymphoctye Abs 3.11 10e9/L 09/29/2015 COMPLETE BLOOD COUNT 0152060 Monocyte Abs 0.62 10e9/L 09/29/2015 COMPLETE BLOOD COUNT 0022106 Eosinophil Abs 0.07 10e9/L 09/29/2015 COMPLETE BLOOD COUNT 4979019 RDW-SD 43.6 fL 09/29/2015 COMPLETE BLOOD COUNT 2673717 Basophil Abs 0.01 10e9/L 09/29/2015 IRON 72510 Iron 86 ug/dL 09/29/2015 COMPLETE BLOOD COUNT 5509045 WBC 9.6 10e9/L 09/29/2015 COMPLETE BLOOD COUNT 7286171 RBC 4.51 10e12/L 6 COMPLETE BLOOD COUNT 5280429 HEMOGLOBIN 14.8 g/dL 09/29/2015 COMPLETE BLOOD COUNT 8712587 HEMATOCRIT 43.3 % 09/29/2015 COMPLETE BLOOD COUNT 3920413 MCV 96.0 fL 09/29/2015 COMPLETE BLOOD COUNT 7928740 MCH 32.8 pg 09/29/2015 COMPLETE BLOOD COUNT 9263231 MCHC 34.2 g/dL 09/29/2015 COMPLETE BLOOD COUNT 3972427 PLATELET COUNT 310 10e9/L 09/29/2015 COMPLETE BLOOD COUNT 8228896 Mean Plt Volume 9.7 fL 09/29/2015 COMPLETE BLOOD COUNT 8664403 Neutrophil 60.3 % 09/29/2015 COMPLETE BLOOD COUNT 2050499 Lymph Auto % 32.4 % 09/29/2015 COMPLETE BLOOD COUNT 9404840 Monocyte Auto % 6.5 % 09/29/2015 COMPLETE BLOOD COUNT 1339548 Eosinophil 0.7 % 09/29/2015 COMPLETE BLOOD COUNT 5014329 RDW 12.8 % 09/29/2015 COMPLETE BLOOD COUNT 5369429 Basophil 0.1 % 09/29/2015 COMPLETE BLOOD COUNT 4845787 Neutrophil Abs 5.79 10e9/L 09/29/2015 COMPLETE BLOOD COUNT 5087264 Lymphoctye Abs 3.11 10e9/L 09/29/2015 COMPLETE BLOOD COUNT 9288084 Monocyte Abs 0.62 10e9/L 09/29/2015 COMPLETE BLOOD COUNT 8163525 Eosinophil Abs 0.07 10e9/L 09/29/2015 COMPLETE BLOOD COUNT 4317338 Basophil Abs 0.01 10e9/L 09/29/2015 COMPLETE BLOOD COUNT 6818470 RDW-SD 43.6 fL 09/29/2015 PT 6222260 PT 16.8 Seconds 09/29/2015 PT 8818589 INR 1.4 09/29/2015 IRON 09167 Iron 86 ug/dL 09/29/2015 PT MT IVANNA 71990 PRO T PAULIE 19.4 SEC 07/27/2015 PT NM IVANNA 41509 INR M CMC 1.7 07/27/2015 PT NM IVANNA 65645 PRO T PAULIE 21.4 SEC 06/21/2015 PT NM IVANNA 20362 INR M CMC 1.9 06/21/2015 PT NM IVANNA 78240 PRO T PAULIE 24.5 SEC 05/24/2015 PT MT IVANNA 28941 INR M CMC 2.3 05/24/2015 Review of [...] Date URINE CULTURE/ COLON Y COUNT CPT-4: 43667 02/08/2019 ROUTINE VENIPUNCTURE CPT-4: 91338 01/19/2019 PROTHROMBIN TIME CPT-4: 93824 01/19/2019 COMPLETE CBC W/AUTO DIFF WBC CPT-4: 27676 01/19/2019 ANTISTREPTOLYSIN O T ITER CPT-4: 21674 01/19/2019 HEPATIC FUNCTION PANEL CPT-4: 62383 01/19/2019 MYCOPLASMA ANTIBODY, IFA CPT-4: 28420D4 01/19/2019 RESPIRATORY CULTURE & STAIN CPT-4: 80029 01/19/2019 STREP A ASSAY W/OPTIC CPT-4: 41515 01/19/2019 THER/PROPH/DIAG INJ SC/IM CPT-4: 76102 01/04/2019 TRIAMCINOLONE ACET I NJ NOS CPT-4: J3301 01/04/2019 ROUTINE VENIPUNCTURE CPT-4: 81219 12/18/2018 COMPLETE CBC W/AUTO DIFF WBC CPT-4: 66819 12/18/2018 COMPREHEN METABOLIC PANEL CPT-4: 86223 12/18/2018 HYDRATION IV INFUSIO N INIT CPT-4: 03507 12/16/2018 STREP A ASSAY W/OPTIC CPT-4: 78735 12/02/2018 ROUTINE VENIPUNCTURE CPT-4: 85977 11/30/2018 PT CPT-4: 6950265 11/30/2018 CEFTRIAXONE SODIUM I NJECTION CPT-4: J0696 11/30/2018 THER/PROPH/DIAG INJ SC/IM CPT-4: 63317 11/30/2018 URINE CULTURE/ COLON Y COUNT CPT-4: 21746 11/20/2018 URINALYSIS NONAUTO W /O SCOPE CPT-4: 69653 11/20/2018 CEFTRIAXONE SODIUM I NJECTION CPT-4: J0696 11/12/2018 THER/PROPH/DIAG INJ SC/IM CPT-4: 24823 11/12/2018 STREP A ASSAY W/OPTIC CPT-4: 50937 11/11/2018 CEFTRIAXONE SODIUM I NJECTION CPT-4: J0696 11/11/2018 THER/PROPH/DIAG INJ SC/IM CPT-4: 78771 11/11/2018 ROUTINE VENIPUNCTURE CPT-4: 16868 11/11/2018 ANTISTREPTOLYSIN O T ITER CPT-4: 50149 11/11/2018 COMPLETE CBC W/AUTO DIFF WBC CPT-4: 80174 11/11/2018 ROUTINE VENIPUNCTURE CPT-4: 64701 10/27/2018 PT CPT-4: 1171042 10/27/2018 THER/PROPH/DIAG INJ SC/IM CPT-4: 10556 10/09/2018 TRIAMCINOLONE ACET I NJ NOS CPT-4: J3301 10/09/2018 CEFTRIAXONE SODIUM I NJECTION CPT-4: J0696 10/08/2018 THER/PROPH/DIAG INJ SC/IM CPT-4: 21982 10/08/2018 CEFTRIAXONE SODIUM I NJECTION CPT-4: J0696 10/07/2018 THER/PROPH/DIAG INJ SC/IM CPT-4: 94350 10/07/2018 ROUTINE VENIPUNCTURE CPT-4: 19399 09/25/2018 COMPREHEN METABOLIC PANEL CPT-4: 88441 09/25/2018 COMPLETE CBC W/AUTO DIFF WBC CPT-4: 22235 09/25/2018 PT CPT-4: 5372462 09/25/2018 URINE CULTURE/ COLON Y COUNT CPT-4: 66612 09/10/2018 URINALYSIS NONAUTO W /O SCOPE CPT-4: 93533 09/10/2018 CEFTRIAXONE SODIUM I NJECTION CPT-4: J0696 09/08/2018 THER/PROPH/DIAG INJ SC/IM CPT-4: 09151 09/08/2018 ROUTINE VENIPUNCTURE CPT-4: 28066 08/14/2018 PT CPT-4: 2684672 08/14/2018 CEFTRIAXONE SODIUM I NJECTION CPT-4: J0696 07/02/2018 THER/PROPH/DIAG INJ SC/IM CPT-4: 49825 07/02/2018 THER/PROPH/DIAG INJ SC/IM CPT-4: 08559 07/02/2018 TRIAMCINOLONE ACET I NJ NOS CPT-4: J3301 07/02/2018 ROUTINE VENIPUNCTURE CPT-4: 84525 06/22/2018 ANTISTREPTOLYSIN O T ITER CPT-4: 47073 06/22/2018 ROUTINE VENIPUNCTURE CPT-4: 66125 06/17/2018 PROTHROMBIN TIME CPT-4: 05136 06/17/2018 URINE CULTURE/ COLON Y COUNT CPT-4: 05236 06/17/2018 CEFTRIAXONE SODIUM I NJECTION CPT-4: J0696 05/12/2018 THER/PROPH/DIAG INJ SC/IM CPT-4: 46071 05/12/2018 PROTHROMBIN TIME CPT-4: 72743 05/11/2018 CEFTRIAXONE SODIUM I NJECTION CPT-4: J0696 05/11/2018 THER/PROPH/DIAG INJ SC/IM CPT-4: 18947 05/11/2018 ROUTINE VENIPUNCTURE CPT-4: 21446 04/30/2018 PROTHROMBIN TIME CPT-4: 01770 04/30/2018 THER/PROPH/DIAG INJ SC/IM CPT-4: 38479 04/02/2018 TRIAMCINOLONE ACET I NJ NOS CPT-4: J3301 04/02/2018 IIV4 VACCINE 3 YRS+ IM AND UP CPT-4: 84138 03/24/2018 IMMUNIZATION ADMIN CPT- 4: 15167 03/24/2018 ROUTINE VENIPUNCTURE CPT-4: 18771 03/24/2018 PT CPT-4: 9946028 03/24/2018 PROTHROMBIN TIME CPT-4: 57798 02/24/2018 ROUTINE VENIPUNCTURE CPT-4: 39233 02/24/2018 ROUTINE VENIPUNCTURE CPT-4: 13461 02/05/2018 PROTHROMBIN TIME CPT-4: 28875 02/05/2018 URINE CULTURE/ COLON Y COUNT CPT-4: 77352 02/05/2018 CEFTRIAXONE SODIUM I NJECTION CPT-4: J0696 01/29/2018 THER/PROPH/DIAG INJ SC/IM CPT-4: 15533 01/29/2018 CEFTRIAXONE SODIUM I NJECTION CPT-4: J0696 01/28/2018 THER/PROPH/DIAG INJ SC/IM CPT-4: 40311 01/28/2018 URINALYSIS NONAUTO W /O SCOPE CPT-4: 27332 01/26/2018 URINE CULTURE/ COLON Y COUNT CPT-4: 10308 01/26/2018 ROUTINE VENIPUNCTURE CPT-4: 56484 01/01/2018 PROTHROMBIN TIME CPT-4: 66183 01/01/2018 THER/PROPH/DIAG INJ SC/IM CPT-4: 30161 12/25/2017 TRIAMCINOLONE ACET I NJ NOS CPT-4: J3301 12/25/2017 DEXAMETHASONE SODIUM PHOS CPT-4: J1100 12/25/2017 STREP A ASSAY W/OPTIC CPT-4: 59376 12/11/2017 CEFTRIAXONE SODIUM I NJECTION CPT-4: J0696 12/11/2017 THER/PROPH/DIAG INJ SC/IM CPT-4: 11469 12/11/2017 ROUTINE VENIPUNCTURE CPT-4: 78536 12/01/2017 ANTISTREPTOLYSIN O T ITER CPT-4: 57099 12/01/2017 PROTHROMBIN TIME CPT-4: 50774 12/01/2017 VITAMIN D TOTAL (25 HYDROXY) CPT-4: 60702 12/01/2017 VITAMIN B-12 CPT-4: 75250 12/01/2017 SPECIMEN HANDLING OF FICE-LAB CPT-4: 20127 11/05/2017 ROUTINE VENIPUNCTURE CPT-4: 76746 10/14/2017 ANTISTREPTOLYSIN O T ITER CPT-4: 31303 10/14/2017 ROUTINE VENIPUNCTURE CPT-4: 17565 10/06/2017 PROTHROMBIN TIME CPT-4: 41974 10/06/2017 THER/PROPH/DIAG INJ SC/IM CPT-4: 66086 10/06/2017 TRIAMCINOLONE ACET I NJ NOS CPT-4: J3301 10/06/2017 ROUTINE VENIPUNCTURE CPT-4: 86887 10/01/2017 VITAMIN B-12 CPT-4: 32215 10/01/2017 FOLIC ACID CPT-4: 65240 10/01/2017 ASSAY THYROID STIM H ORMONE CPT-4: 65542 10/01/2017 ASSAY OF FREE THYROXINE CPT-4: 90469 10/01/2017 ASSAY TRIIODOTHYRONI NE (T3) CPT-4: 16525 10/01/2017 ASSAY OF BLOOD/URIC ACID CPT-4: 57690 10/01/2017 RHEUMATOID FACTOR QUANT CPT-4: 31490 10/01/2017 RBC SED RATE AUTOMATED CPT-4: 08393 10/01/2017 ANTISTREPTOLYSIN O T ITER CPT-4: 83834 10/01/2017 ASSAY OF IRON CPT-4: 11853 10/01/2017 ASSAY OF FERRITIN CPT-4: 70560 10/01/2017 ANTINUCLEAR ANTIBODIES CPT-4: 45362 10/01/2017 A1C HPLC CPT-4: 89786 10/01/2017 VITAMIN D TOTAL (25 HYDROXY) CPT-4: 82338 10/01/2017 THER/PROPH/DIAG INJ SC/IM CPT-4: 44431 09/05/2017 TRIAMCINOLONE ACET I NJ NOS CPT-4: J3301 09/05/2017 URINALYSIS NONAUTO W /O SCOPE CPT-4: 31718 09/05/2017 URINE CULTURE/ COLON Y COUNT CPT-4: 77687 09/05/2017 ROUTINE VENIPUNCTURE CPT-4: 72485 09/04/2017 PROTHROMBIN TIME CPT-4: 60546 09/04/2017 ROUTINE VENIPUNCTURE CPT-4: 66793 08/07/2017 COMPLETE CBC W/AUTO DIFF WBC CPT-4: 62004 08/07/2017 COMPREHEN METABOLIC PANEL CPT-4: 13361 08/07/2017 PROTHROMBIN TIME CPT-4: 41587 08/07/2017 INFLUENZA ASSAY W/OPTIC CPT-4: 50445 07/15/2017 ROUTINE VENIPUNCTURE CPT-4: 34881 07/15/2017 COMPREHEN METABOLIC PANEL CPT-4: 69181 07/15/2017 COMPLETE CBC W/AUTO DIFF WBC CPT-4: 39302 07/15/2017 CEFTRIAXONE SODIUM I NJECTION CPT-4: J0696 07/04/2017 THER/PROPH/DIAG INJ SC/IM CPT-4: 27807 07/04/2017 THER/PROPH/DIAG INJ SC/IM CPT-4: 92772 07/04/2017 TRIAMCINOLONE ACET I NJ NOS CPT-4: J3301 07/04/2017 CEFTRIAXONE SODIUM I NJECTION CPT-4: J0696 07/02/2017 THER/PROPH/DIAG INJ SC/IM CPT-4: 56438 07/02/2017 CEFTRIAXONE SODIUM I NJECTION CPT-4: J0696 07/01/2017 THER/PROPH/DIAG INJ SC/IM CPT-4: 66851 07/01/2017 ROUTINE VENIPUNCTURE CPT-4: 58834 06/19/2017 PROTHROMBIN TIME CPT-4: 32464 06/19/2017 THER/PROPH/DIAG INJ SC/IM CPT-4: 83858 04/01/2017 TRIAMCINOLONE ACET I NJ NOS CPT-4: J3301 04/01/2017 ROUTINE VENIPUNCTURE CPT-4: 94983 02/10/2017 PROTHROMBIN TIME CPT-4: 93212 02/10/2017 URINALYSIS NONAUTO W /O SCOPE CPT-4: 67751 02/10/2017 URINE CULTURE/ COLON Y COUNT CPT-4: 11406 02/10/2017 ROUTINE VENIPUNCTURE CPT-4: 68228 02/05/2017 PROTHROMBIN TIME CPT-4: 30747 02/05/2017 THROAT CULTURE CPT-4: 04427 02/03/2017 STREP A ASSAY W/OPTIC CPT-4: 10628 01/13/2017 ROUTINE VENIPUNCTURE CPT-4: 13524 12/18/2016 PROTHROMBIN TIME CPT-4: 93704 12/18/2016 URINE CULTURE/ COLON Y COUNT CPT-4: 17206 08/27/2016 ASSAY THYROID STIM H ORMONE CPT-4: 31387 08/27/2016 COMPREHEN METABOLIC PANEL CPT-4: 27924 08/27/2016 COMPLETE CBC W/AUTO DIFF WBC CPT-4: 92002 08/27/2016 PROTHROMBIN TIME CPT-4: 20297 08/27/2016 ROUTINE VENIPUNCTURE CPT-4: 64695 08/27/2016 ROUTINE VENIPUNCTURE CPT-4: 23658 05/24/2016 COMPREHEN METABOLIC PANEL CPT-4: 80430 05/24/2016 PROTHROMBIN TIME CPT-4: 16926 05/24/2016 URINALYSIS NONAUTO W /O SCOPE CPT-4: 29590 04/23/2016 URINE CULTURE/ COLON Y COUNT CPT-4: 53292 04/23/2016 PRESCRIP TRANSMIT A ERX SY CPT-4: G8553 04/23/2016 AEROBIC WOUND CULTUR E & STN CPT-4: 79588 04/17/2016 ROUTINE VENIPUNCTURE CPT-4: 02873 04/11/2016 PROTHROMBIN TIME CPT-4: 97538 04/11/2016 ROUTINE VENIPUNCTURE CPT-4: 71190 03/12/2016 COMPLETE CBC W/AUTO DIFF WBC CPT-4: 66344 03/12/2016 COMPREHEN METABOLIC PANEL CPT-4: 05902 03/12/2016 ASSAY THYROID STIM H ORMONE CPT-4: 33415 03/12/2016 PROTHROMBIN TIME CPT-4: 55691 03/12/2016 ROUTINE VENIPUNCTURE CPT-4: 04847 02/12/2016 PROTHROMBIN TIME CPT-4: 11010 02/12/2016 ROUTINE VENIPUNCTURE CPT-4: 02613 02/01/2016 PROTHROMBIN TIME CPT-4: 13642 02/01/2016 ROUTINE VENIPUNCTURE CPT-4: 20662 01/22/2016 PROTHROMBIN TIME CPT-4: 78652 01/22/2016 ROUTINE VENIPUNCTURE CPT-4: 42525 11/10/2015 PROTHROMBIN TIME CPT-4: 90334 11/10/2015 CEFTRIAXONE SODIUM I NJECTION CPT-4: J0696 11/10/2015 THER/PROPH/DIAG INJ SC/IM CPT-4: 52437 11/10/2015 EB VIRUS VCA G/M + E BNA + EA CPT-4: 00576|29690 x 2|41466 016 THROAT CULTURE CPT-4: 10353 11/09/2015 STREP A ASSAY W/OPTIC CPT-4: 55070 11/09/2015 STREP A ASSAY W/OPTIC CPT-4: 51809 10/02/2015 ROUTINE VENIPUNCTURE CPT-4: 33249 09/29/2015 COMPLETE CBC W/AUTO DIFF WBC CPT-4: 11958 09/29/2015 ASSAY OF IRON CPT-4: 70499 09/29/2015 PROTHROMBIN TIME CPT-4: 92339 09/29/2015 ROUTINE VENIPUNCTURE CPT-4: 54202 07/27/2015 PROTHROMBIN TIME CPT-4: 85168 07/27/2015 URINALYSIS NONAUTO W /O SCOPE CPT-4: 62430 06/30/2015 URINE CULTURE/ COLON Y COUNT CPT-4: 31731 06/30/2015 ROUTINE VENIPUNCTURE CPT-4: 30708 06/21/2015 PROTHROMBIN TIME CPT-4: 62099 06/21/2015 URINE CULTURE/ COLON Y COUNT CPT-4: 90737 05/31/2015 ROUTINE VENIPUNCTURE CPT-4: 77537 05/24/2015 PROTHROMBIN TIME CPT-4: 95379 05/24/2015 URINALYSIS NONAUTO W /O SCOPE CPT-4: 12181 05/24/2015 Vital Signs Date Vital 02/08/2019 Blood [...] 1: 122/70 Code: 8480-6 BMI: 32.2 Code: 57190-0 Heart Rate 1: 88 bpm Height: 5'3" Respiratory Rate: 20 bpm SpO2: 96% Temperature: 36.8 (C ) / 98.2 (F) Weight: 182 lbs 07/23/2018 Blood Pressure 1: 132/80 Code: 8480-6 Heart Rate 1: 84 bpm Respiratory Rate: 20 bpm SpO2: 96% Temperature: 36.6 (C ) / 97.8 (F) Weight: 187 lbs 07/08/2018 Blood Pressure 1: 122/70 Code: 8480-6 BMI: 32.2 Code: 54189-2 Heart Rate 1: 88 bpm Height: 5'3" Respiratory Rate: 20 bpm Temperature: 36.6 (C ) / 97.8 (F) Weight: 182 lbs 07/02/2018 Blood Pressure 1: 124/68 Code: 8480-6 BMI: 32.8 Code: 54752-8 Heart Rate 1: 84 bpm Height: 5'3" Respiratory Rate: 20 bpm SpO2: 98% Temperature: 36.3 (C ) / 97.3 (F) Weight: 185 lbs 06/02/2018 Blood Pressure 1: 132/90 Code: 8480-6 Heart Rate 1: 84 bpm Respiratory Rate: 18 bpm SpO2: 97% Temperature: 36.6 (C ) / 97.9 (F) Weight: 180 lbs 05/11/2018 Blood Pressure 1: 124/80 Code: 8480-6 BMI: 31.7 Code: 34765-1 Heart Rate 1: 88 bpm Height: 5'3" Respiratory Rate: 20 bpm Temperature: 37.0 (C ) / 98.6 (F)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 Brambila WPtel: [address] [place] [address] LAB 12/18/2018 Appointment: Kristine Brambila WPtel: [address] [place] [address] ACUTE ILLNESS 12/16/2018 Visit Diagnosis Plan: Anemia, [...] : R53.83 12/03/2018 Appointment: Kristine Brambila WPtel: [address] [place] [address] ACUTE ILLNESS 12/03/2018 Visit Diagnosis Plan: Acute [...] ICD-10 : R59.9 12/02/2018 Appointment: Ivon Sky [address] [place] [address] FOLLOW UP 12/02/2018 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 instructed to call or rtc with any new or worsening concerns. tylenol prn pain. ICD-9 : 382.00 ICD-10 : H66.002 11/30/2018 Appointment: Ivon Sky [address] [place] [address] ACUTE ILLNESS 11/30/2018 Patient Education: Coumadin- OptimizeRX Coupon [id number] https://www.bigtincan/sampleZero2IPO/resources/getResource/61/8889h148-8c73-53l1-95 Completed 11/30/2018 Appointment: Kristine Brambila WPtel: [address] [place] [address] UA 11/20/2018 Appointment: Kristine Brambila WPtel: [address] [place] [address] INJECTION 11/12/2018 Visit Diagnosis Plan: Streptococcal pharyngitis Discussion: Strep A- positive ASO titer today along with CBC. Rocephin 1 gram. RTC tmrw for another injection. Patient states understanding. ICD-9 : 034.0 ICD-10 : J02.0 11/11/2018 Appointment: Lulu Navarro [address] ACUTE ILLNESS 11/11/2018 Appointment: Kristine Brambila WPtel: [address] [place] [address] ACUTE ILLNESS 10/27/2018 Appointment: Kristine Brambila WPtel: [address] [place] [address] [place] INJECTION 10/09/2018 Visit Diagnosis Plan: Acute recurrent maxillary sinusi tis Discussion: Rocephin 1 gram administered in clinic- patient tolerated well. Continue with supportive treatment at home as well. Tylenol for headache. Salt water gargles and sinus rinses advised. Patient states understanding. ICD-9 : 461.0 ICD-10 : J01.10/08/2018 Appointment: Lulu Navarro [address] [place], [place] [id number] [place] INJECTION 10/08/2018 Visit Diagnosis Plan: Acute recurrent maxillary sinusi tis Discussion: Rocephin- 1 gram administered in clinic. Patient tolerated well. Sinus rinses encouraged. Rest and fluids. Tylenol or Motrin for pain and fever. FU PRN. Patient states understanding. ICD-9 : 461.0 ICD-10 : J01.10/07/2018 Appointment: Lulu Navarro [address] [place], [place] [id number] ACUTE ILLNESS 10/07/2018 Visit Diagnosis Plan: Dizziness [...] : R42 09/25/2018 Appointment: Lulu Navarro [address] [place], [place] [phone] ACUTE ILLNESS 09/25/2018 Appointment: Kristine Brambila WPtel: [address] [facility] UA 09/10/2018 Visit Diagnosis Plan: [...] : A49.1 09/08/2018 Appointment: Kristine Brambila WPtel: [address] [place] [address] ACUTE ILLNESS 09/08/2018 Patient Education: cefdinir- [employer] Coupon [id number] https://www.bigtincan/samplemd/resources/getResource/61/t2571n64-0m94-7pwm-c1 Completed 09/08/2018 Appointment: Kristine Brambila WPtel: [address] [place] [address] [place] LAB 08/14/2018 Visit Diagnosis Plan: Otalgia, left ear Discussion: ciprodex prescribed for symptom management. instructed to take as directed. call office in one week if no improvement. ICD-9 : 388.70 ICD-10 : H92.02 07/23/2018 Visit Diagnosis Plan: Acute sinusitis, unspecified Discussion: will obtain patient's most recent ct of sinuses. discussed with patient that may need updated ct with focus to ear/mandible. patient verbalized understanding. ICD-9 : 461.9 ICD-10 : J01.90 07/23/2018 Appointment: Ivon Sky [address] [place] [address] ACUTE ILLNESS 07/23/2018 Patient Education: cyclobenzaprine- Opti mizeRX Coupon [id number] https://www.bigtincan/samplemd/resources/getResource/61/u105u9ol-e104-058u-xn 09-0b50tk317551.pdf Completed 07/23/2018 Visit Diagnosis Plan: Streptococcal infe ction, unspecified site Discussion: Randy Dove Sees dentist today t o assess tooth ICD-9 : 041.00 ICD-10 : A49.1 07/08/2018 Appointment: Kristine Brambila WPtel: [address] [place] [address] FOLLOW UP 07/08/2018 Patient Education: penicillin V potassiu m- OptimizeRX Coupon [id number] https://www.Pogoplug.com/samplemd/resources/getResource/61/[email or web address] -03087cr61o5g.pdf Completed 07/08/2018 Visit Diagnosis Plan: Localized enlarged [...] ICD-10 : K04.6 07/02/2018 Appointment: Ivon Sky [address] ACUTE ILLNESS 07/02/2018 Appointment: Kristine Brambila WPtel: [address] [place] [address] LAB 06/22/2018 Appointment: Kristine Brambila WPtel: [address] [place] [address] UA 06/17/2018 Visit Diagnosis Plan: Acute sinusitis, unspecified Discussion: dc keflex. start cefdinir daily for 10 days. saline up nares prn congestion. if no improvement after antibiotics or worsening symtpoms, call clinic. ICD-9 : 461.9 ICD-10 : J01.90 06/02/2018 Appointment: Ivon Sky [address] ACUTE ILLNESS 06/02/2018 Appointment: Kristine Brambila WPtel: [address] [place] [address] [place] INJECTION 05/12/2018 Visit Diagnosis Plan: half-way (current ) use [...] ICD-10 : H70.002 05/11/2018 Appointment: Ivon Sky [address] [place] [address] FOLLOW UP 05/11/2018 Appointment: Kristine Brambila WPtel: [address] [place], [place] [phone] [place] LAB 04/30/2018 Visit Diagnosis Plan: Acute sinusitis, unspecified Discussion: 40 mg kenalog given to patient in office. clindamycin prescribed for patient to take as directed. instructed to stop nasal sprays due to worsening pain/irritation and only use saline rinse up nares for now. call with any new or worsening symptoms. ICD-9 : 461.9 ICD-10 : J01.90 04/02/2018 Appointment: Ivon Sky [address] [place] [address] ACUTE ILLNESS 04/02/2018 Patient Education: Patient Medication Summary Completed 04/02/2018 Appointment: Kristine Brambila WPtel: [facility]6 [facility] [place] LAB 03/24/2018 Patient Education: Patient Medication [...] ICD-10 : J30.89 03/16/2018 Appointment: Ivon Sky [address] [place] [address] ACUTE ILLNESS 03/16/2018 Patient Education: Patient Medication Summary Completed 03/16/2018 Appointment: Kristine Brambila WPtel: [address] [place] [address] [place] LAB 02/24/2018 Patient Education: Patient Medication Summary Completed 02/24/2018 Appointment: Kristine Brambila WPtel: [address] [place] [address] [place] RESCHEDULED 02/18/2018 Visit Diagnosis Plan: Abdominal distension (gaseous) Discussion: Wanda Restora Rx 1 daily Follow Up: 2 weeks ICD-9 : 787.3 ICD-10 : R14.0 02/16/2018 Visit Diagnosis Plan: Epigastric pain Discussion: Pepcid BID ICD-9 : 789.06 ICD-10 : R10.13 02/16/2018 Visit Diagnosis Plan: Diarrhea, unspecified Discussion: yl ICD-9 : 787.91 ICD-10 : R19.7 02/16/2018 Appointment: Kristine Brambila WPtel: [address] [place] [address] ACUTE ILLNESS 02/16/2018 Patient Education: Patient Medication Summary Completed 02/16/2018 Appointment: Kristine Brambila WPtel: [address] [place] [address] [place] INJECTION 02/05/2018 Patient Education: Patient Medication Summary Completed 02/05/2018 Appointment: Kristine Brambila WPtel: [address] [place] [address] [place] INJECTION 01/29/2018 Patient Education: Patient Medication Summary Completed 01/29/2018 Appointment: Kristine Brambila WPtel: [address] [place] [address] [place] INJECTION 01/28/2018 Patient Education: Patient Medication [...] ICD-10 : Z77.21 01/26/2018 Appointment: Ivon Sky [address] [place] [address] ACUTE ILLNESS 01/26/2018 Patient Education: Patient Medication [...] ICD-10 : K13.79 01/01/2018 Appointment: Ivon Sky [address] [place] [address] ACUTE ILLNESS 01/01/2018 Patient Education: Patient Medication Summary Completed 01/01/2018 Visit Diagnosis Plan: Migraine, unspecif ied, not intractable, without status migrainosus Discussion: most likely increased due to infection in ear. phenergan prescribed to assist with nausea prn with headaches. patient has next botox next week. ICD-9 : 346.90 ICD-10 : G43.909 12/25/2017 Visit Diagnosis Plan: Acute suppurative otitis media with spontaneous rupture of ear drum, left ear Discussion: zithromax prescribed for patient to assist with infection. 40 mg kenalog and 2 mg dexa given in office. instructed to call late next week if no improvement. ICD-9 : 382.01 ICD-10 : H66.012 12/25/2017 Appointment: Ivon Sky [address] [place] [address] ACUTE ILLNESS 12/25/2017 Patient Education: Patient Medication Summary Completed 12/25/2017 Visit Diagnosis Plan: Acute pharyngitis, unspecified Discussion: rapid strep negative. rocephin injection given in office. clindamycin prescribed as well to start tomorrow for 10 days. increase fluid intake. call or rtc next week if new or worsening symptoms. ICD-9 : 462 ICD-10 : J02.9 12/11/2017 Appointment: Ivon Sky [address] [place] [address] ACUTE ILLNESS 12/11/2017 Patient Education: Patient Medication Summary Completed 12/11/2017 Appointment: Kristine Brambila WPtel: [address] [place] [address] LAB 12/01/2017 Patient Education: Patient Medication Summary Completed 12/01/2017 Visit Diagnosis Plan: Encounter for gyne cological examination (general) (routine) without abnormal findings Discussion: Pap done as has a history of choriocarcinoma Had mammogram last month ICD-9 : V72.31 ICD-10 : Z01.419 11/05/2017 Appointment: Kristine Brambila WPtel: [address] [place] [address] Annual Well Visit 11/05/2017 Patient Education: Patient Medication Summary Completed 11/05/2017 Appointment: Kristine Brambila WPtel: [address] [place] [address] [place] LAB 10/14/2017 Patient Education: Patient Medication Summary Completed 10/14/2017 Care Plan: X-RAY EXAM OF SHOULDER right LOINC : 79497-6 Pending 10/07/2017 Visit Diagnosis Plan: Pain in right shoulder Discussion: xray ordered of right shoulder to rule out fracture. 40 mg kenalog given as one shot to assist with pain. 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 ICD-9 : V58.61 ICD-10 : Z79.01 10/06/2017 Appointment: Ivon Sky [address] [place] [address] ACUTE ILLNESS 10/06/2017 Patient Education: Patient Medication [...] 782.0 ICD-10 : R20.2 10/01/2017 Appointment: Kristine Brambilatel: [address] ACUTE ILLNESS 10/01/2017 Patient Education: Patient [...] ICD-10 : T23.262A 09/10/2017 Appointment: Ivon Sky [address] [place], [place] [address] ACUTE ILLNESS 09/10/2017 Patient Education: Patient Medication Summary Completed 09/10/2017 Appointment: Kristine Brambilatel: [address] [place] [address] [place] INJECTION 09/05/2017 Patient Education: Patient Medication Summary Completed 09/05/2017 Appointment: Krist[facility] Brambila [facility]Ptel[facility] [facility] [facility] 09/04/2017 Patient Education: Patient Medication Summary Completed 09/04/2017 Appointment: Kristine Brambila WPtel: [address] [place], [place] [phone] [place] LAB 08/07/2017 Patient Education: Patient Medication Summary Completed 08/07/2017 Patient Education: Patient Medication Summary Completed 07/21/2017 Care Plan: CHEST X-RAY 2VW FRONTAL&LATL LOINC : 13896-8 Pending 07/21/2017 Visit Diagnosis Plan: Acute upper [...] ICD-10 : K21.9 07/15/2017 Appointment: Ivon Sky [address] [place] [address] ACUTE ILLNESS 07/15/2017 Patient Education: Patient Medication Summary Completed 07/15/2017 Appointment: Kristine Brambila WPtel: [address] [place], [place] [phone] [place] INJECTION 07/04/2017 Patient Education: Patient Medication Summary Completed 07/04/2017 Appointment: Kristine Brambila WPtel: [address] [place], [place] [phone] [place] INJECTION 07/02/2017 Patient Education: Patient Medication [...] : H66.92 07/01/2017 Appointment: [facility] [facility] 07/01/2017 Patient Education: Patient Medication Summary Completed 07/01/2017 Care Plan: US EXAM OF HEAD AND NECK Pending 07/01/2017 Appointment: Kristine Brambila WPtel: [address] [place] [place] LAB 06/19/2017 Patient Education: Patient Medication [...] : J18.9 05/27/2017 Appointment: Ivon Sky 504 [facility] ACUTE ILLNESS 05/27/2017 Patient Education: Patient [...] : G47.00 05/20/2017 Appointment: Ivon Sky 504 [facility] ACUTE ILLNESS 05/20/2017 Patient Education: Patient Medication Summary Completed 05/20/2017 Visit Diagnosis Plan: Headache Discu ssion: Discussed likely Migraine Discussed MRI results Discussed changing acetazolamide to HCTZ ICD-9 : 784.0 ICD-10 : R51 04/22/2017 Visit Diagnosis Plan: Diplopia Discu ssion: Updated dilated eye exam ICD-9 : 368.2 ICD-10 : H53.2 04/22/2017 Appointment: Kristine Brambila WPtel: [address] [place] [address] [place] FOLLOW UP 04/22/2017 Patient Education: Patient Medication Summary Completed 04/22/2017 Appointment: Kristine Brambila WPtel: [address] [place] [address] RESCHEDULED 04/07/2017 Visit Plan: Saline nasal flushes pr n. Tylenol/Motrin prn headache. Notify if persists/symptoms worsening. 04/01/2017 Visit Plan: Saline nasal flushes pr n. Tylenol/Motrin prn headache. Notify if persists/symptoms worsening. 04/01/2017 Visit NOS Plan: Plan Notes: Saline nasal flushes prn. Tyle... 04/01/2017 Visit Diagnosis Plan: Acute sinusitis, unspecified Discussion: Kenalog 40mg IM x1 Decadron/Garamycin Nose [place] Mix Has appointment on April 28 with ENT ICD-9 : 461.9 ICD-10 : J01.90 04/01/2017 Appointment: Kristine Brambila WPtel: [facility] ACUTE ILLNESS 04/01/2017 Patient Education: Patient Medication Summary Completed 04/01/2017 Referral: Serjio Lugo WPtel: [address] [address] [place] Referral Appointment Requested 03/20/2017 Patient Education: Patient Medication Summary Completed 02/27/2017 Care Plan: CT ABDOMEN W/O DYE abd/pe lvis stone search LOINC : 03741-3 Pending 02/27/2017 Patient Education: Patient Medication Summary Completed 02/12/2017 Care Plan: MRI NECK SPINE W/O DYE LOINC : 04780-4 Pending 02/12/2017 Appointment: Kristine Brambila WPtel: [address] [place], [place] [phone] LAB 02/10/2017 Patient Education: Patient Medication Summary [...] M54.2 02/05/2017 Appointment: Kristine Brambila WPtel: [address] [place], [place] [phone] ACUTE ILLNESS 02/05/2017 Patient Education: Patient Medication Summary Completed 02/05/2017 Care Plan: Referral Order SNOMED-CT : [id number] Pending 02/05/2017 Appointment: Kristine Brambila WPtel: [address] [place], [place] [phone] THROAT SWAB 02/03/2017 Patient Education: Patient Medication Summary Completed 02/03/2017 Appointment: Kristine Brambila WPtel: [address] [place] [address] [place] 01/13 canceled~sl CANCELED 01/28/2017 Visit Plan: [...] : J02.8 01/13/2017 Appointment: Kristine Brambila WPtel: [address] [place] [address] ACUTE ILLNESS 01/13/2017 Patient Education: Patient Medication Summary Completed 01/13/2017 Appointment: Kristien Brambila WPtel: [address] [place] [address] LAB 12/18/2016 Patient Education: Patient Medication Summary Completed 12/18/2016 Visit Diagnosis Plan: Pain in unspecified joint Discussion: Will retry methotrexate since has worked in past to greatly reduce patient's pain--4 tabs week one then 5 tabs week 2 then 6 tabs weekly and fwup in 6 weeks ICD-9 : 719.49 ICD-10 : M25.50 11/27/2016 Appointment: Kristine Brambila WPtel: [address] [place] [address] [place] 11/26 lm~sl 11/26 confimed~sl MEDICATION REVIEW [...] : J06.9 08/27/2016 Appointment: Kristine Brambila WPtel: [address] [place], [place] [phone] 08/26 confirmed`sl MEDICATION REVIEW 08/27/2016 Patient Education: Patient Medication Summary Completed 08/27/2016 Appointment: Kristine Brambila WPtel: [address] [place], [place] [phone] BP CHECK 07/08/2016 Patient Education: Patient Medication Summary Completed 07/08/2016 Appointment: Kristine Brambila WPtel: [address] [place], [place] [phone] [place] LAB 05/24/2016 Patient Education: Patient Medication Summary Completed 05/24/2016 Appointment: Kristine Brambila WPtel: [address] [place], [place] [phone] 04/24 will not be able to get [...] with culture results 04/23/2016 Appointment: Nayeli Anderson [address] [place], [place] [id number] ACUTE ILLNESS 04/23/2016 Patient Education: [...] add oral abx 04/17/2016 Appointment: Nayeli Anderson [address] [place], [place] [id number] ACUTE ILLNESS 04/17/2016 Patient Education: Patient Medication Summary Completed 04/17/2016 Patient Education: [facility] - Saving AutoInj - 18-64 - Dynamic Portal ID Completed 04/17/2016 Appointment: Kristine Brambila WPtel: [address] [place], [place] [address] LAB 04/11/2016 Patient Education: Patient Medication [...] migraines 03/12/2016 Appointment: Kristine Brambila WPtel: [address] [place], [place] [address] 03/12 confirmed-sp FOLLOW UP 03/12/2016 Patient Education: Patient Medication Summary Completed 03/12/2016 Appointment: Kristine Brambila WPtel: [address] [place], [place] [phone] [place] LAB 02/12/2016 Patient Education: Patient Medication Summary Completed 02/12/2016 Appointment: Kristine Brambila WPtel: [address] [place], [place] [phone] LAB 02/01/2016 Patient Education: Patient Medication Summary Completed 02/01/2016 Appointment: Kristine Brambila WPtel: [phone] [facility]6[address] LAB 01/22/2016 Patient Education: Patient [...] improvement 11/10/2015 Appointment: Julee Slater WPtel: [address] [place] [address] ACUTE ILLNESS 11/10/2015 Patient Education: [...] care otherwise 11/09/2015 Appointment: Nayeli Anderson 2305 [facility]6676[facility] ACUTE ILLNESS 11/09/2015 Patient Education: Patient Medication Summary Completed 11/09/2015 Referral: Maximiliano Neves WPtel: [phone] [id number] Spoke with Sally at Dr. Ta's offic e. Patient is scheduled for 10/16/15 at 3:15pm. Demographics and notes have been faxed. Patient has been informed. 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 Saving AutoInj - 18-64 - Dynamic Portal ID Completed 10/02/2015 Care Plan: US EXAM OF HEAD AND NECK Pending 10/02/2015 Appointment: Kristine Brambila [facility]Ptel: [facility] [place] [facility] [facility] LAB 09/29/2015 Patient Education: Patient Medication Summary Completed 09/29/2015 Appointment: Kristine Brambila [facility]Ptel: [address] [place] [facility] [facility] 07/27/2015 Patient Education: Patient Medication Summary Completed 07/27/2015 Visit Plan: Trial of Savella Did no t tolerate lyrica Did not tolerate cymbalta 07/10/2015 Appointment: Kristine Brambila WPtel: [address] [place] [address] 07/10 appt confirmed cn FOLLOW UP 07/10/2015 Patient Education: Patient Medication Summary Completed 07/10/2015 Appointment: Kristine Brambila WPtel: [address] [place] [address] [place] UA 06/30/2015 Patient Education: Patient Medication Summary Completed 06/30/2015 Visit Plan: Recommended Vitamin E o il topically bid to area of scar. Currently taking Amoxicillin for sinusitis. Recommend Flonase nasal spray 06/27/2015 Visit Plan: Recommended Vitamin E o il topically bid to area of scar. Currently taking Amoxicillin for sinusitis. Recommend Flonase nasal spray 06/27/2015 Appointment: Meli Hatch WPtel: [address] [place], [place] [phone] ACUTE ILLNESS 06/27/2015 Patient Education: Patient Medication Summary Completed 06/27/2015 Appointment: Meli Hatch WPtel: [address] [place], [place] [phone] 06/22/15 appt confirmed and she will drea jose new insurance card cn ACUTE ILLNESS 06/26/2015 Appointment: Kristine Brambila WPtel: [address] [place] [address] [place] LAB 06/21/2015 Patient Education: Patient Medication Summary Completed 06/21/2015 Visit Plan: Add cymbalta at 30mg da loli Repeat PT/INR in 2weeks Recheck 1mo Awaiting ID to reschedule 06/08/2015 Visit Plan: Add cymbalta at 30mg da loli Repeat PT/INR in 2weeks Recheck 1mo Awaiting ID to reschedule 06/08/2015 Appointment: Kristine Brambila WPtel: [phone] [facility] 06/07 lm ~sl 06/08 confirmed ~sl FOLLOW UP 06/08/2015 Patient Education: Patient Medication Summary Completed 06/08/2015 Patient Education: [facility] - Saving AutoInj - Cymbalta - 18-64 - Dynamic Portal ID Completed 06/08/2015 Patient Education: [facility] - Saving AutoInj - 18-64 - Dynamic Portal ID Completed 06/08/2015 Appointment: Kristine Brambila WPtel: [phone] [facility]6676[facility] UA 05/31/2015 Patient Education: Patient Medication Summary Completed 05/31/2015 Visit Plan: Check PT/INR today Stop ped Lyrica due to fluid retention Has appt. scheduled at [facility] with hematology and infectious disease 06/08 Follow-up appt. in 2 weeks following appt. at . 05/24/2015 Visit Plan: Check PT/INR today Stop ped Lyrica due to fluid retention Has appt. scheduled at [facility] with hematology and infectious disease 06/08 Follow-up appt. in 2 weeks following appt. at . 05/24/2015 Appointment: Meli Hatch WPtel: [facility]8 [facility] [place] NEW PATIENT 05/24/2015 Patient Education: Patient Medication Summary Completed 05/24/2015 Patient Education: [facility] - Saving AutoInj - 18-64 - Dynamic Portal ID Completed 05/24/2015 Referral: Annamarie Melo WPtel: [facility] [address] Referral Initiated Instructions Comment . Rapid [...] to fluid retention Has appt. scheduled at [facility] with hematology and infectious disease 06/08 Follow-up appt. in 2 weeks following appt. at . . Check PT/INR today Stopped Lyrica due to fluid retention Has appt. 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 Recommended Vitami n [...]
--- OUTSIDE RECORDS SUMMARY | 2020-01-28 14:04 | XMS REPORT | CCD ---
Author Author Heydi Hatch APRN Organization [facility] Address [address] [place] [address] Phone Care Team Providers Care Coffee Maker Name Role Phone Kristine Brambila D.O., PP Unavailable CCM Unavailable Summary Purpose Interface Exchange Insurance Providers Payer name Policy type / Coverage type Covered democrat ID Effective Begin Date Effective End Date Blue Cross Blue Shield Blue Cross/Bl ue Shield [id number] 2018 Un known Family History Family History data not found Social History Social History Element Codes Description Effective Dates Tobacco history SNOMED CT: [id number] Current every day smoker 06/08/2015 Allergies, Adverse [...] ICD-9: 786.2 ICD-10: R05 Active 07/21/2017 Unknown 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 ICD-9: 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.61 ICD-10: [...] 02/10/2017 Unknown Pelvic and perineal pain ICD-9: [id number] ICD-10: R10.2 Active 02/10/2017 Unknown Cervicalgia ICD-9: [...] COUGH ICD-9: 786.2 ICD-10: R05 07/21/2017 Active shelter (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 ICD-9: V58.61 ICD-10: [...] 02/10/2017 Active Pelvic and perineal pain ICD-9: [id number] ICD-10: R10.2 02/10/2017 Active Cervicalgia ICD-9: 723.1 [...] Date Stop Date Sta tus Fill Instructions Diflucan 150 mg tablet RxNorm: 022909 TABLET(S) 1 TABLET(S) PO QW NEEDED 02/08/2019 No Stop Date Active Anusol-HC 25 mg rect al suppository RxNorm: 0493910 1 Suppository RTL QD as needed 02/08/2019 03/09/2019 Ac tive hydrocodone 10 mg-ac etaminophen 325 mg tablet RxNorm: 311293 1 Tablet(s) PO Q4-6H as needed for pain 02/01/2019 No Stop Date Active hydrocodone 10 mg-ac etaminophen 325 mg tablet RxNorm: 109331 1 Tablet(s) PO Q4-6H as needed for pain 02/01/2019 No Stop Date Active Diflucan 150 mg tablet RxNorm: 194758 Tablet(s) TABLET(S) 1 TABLET(S) PO QW NEEDED 01/28/2019 No Stop Date Active Vistaril 25 mg capsule RxNorm: 215803 1 Capsule(s) PO TID 01/27/2019 07/25/2019 Active ProAir HFA 90 mcg/ac tuation aerosol inhaler RxNorm: 976915 2 Puff(s) INH Q4H as needed 01/20/2019 No Stop Date Active Tessalon Perles 100 mg capsule RxNorm: 131701 1 Capsule(s) PO TID a s needed for cough 01/20/2019 No Stop Date Active doxycycline hyclate 100 mg capsule RxNorm: 1065154 1 Capsule(s) PO BID 01/20/2019 01/19/2019 In active doxycycline hyclate 100 mg capsule RxNorm: 9627011 1 Capsule(s) PO BID 01/20/2019 01/26/2019 In active Coumadin 5 mg tablet RxNorm: 917860 1 Tablet(s) PO QD (on Mon, Tu, Wed, ur, Fri and Sun) 01/05/2019 06/09/2019 Active Generic For:COUMADIN 5MG TAB 05/25/2018 3:20:45 PM N O T I C E Last quantity doesn't match original quantity amoxicillin 500 mg c apsule RxNorm: 930190 1 Capsule(s) PO BID 01/05/2019 01/14/2019 Inactive amoxicillin 500 mg c apsule RxNorm: 428547 1 Capsule(s) PO BID 01/05/2019 01/04/2019 Inactive hydrocodone 10 mg-ac etaminophen 325 mg tablet RxNorm: 887096 1 Tablet(s) PO Q4-6H as needed for pain 01/01/2019 01/31/2019 Inactive cyclobenzaprine 10 m g tablet RxNorm: 356764 1 TABLET(S) PO QD NEEDED 12/23/2018 06/20/2019 Ac tive Coumadin 5 mg tablet RxNorm: 918659 Tablet(s) TAKE 1 TABLET(S) BY MOUTH FRI, FRI, FRI, Friday12/23/2018 01/04/2019 Inactive Generic For:COUMADIN 5MG TA B 05/25/2018 3:20:45 PM N O T I C E Last quantity doesn't match original quantity Diflucan 150 mg tablet RxNorm: 285979 Tablet(s) TABLET(S) 1 TABLET(S) PO QW NEEDED 12/23/2018 01/27/2019 Inactive Vitamin D2 50,000 un it capsule RxNorm: 5696567 1 Capsule(s) PO QW 12/04/2018 03/03/2019 Active Medrol (Juan Francisco) 4 mg ta blets in a dose pack RxNorm: 164135 Tablet(s) PO as direc liane 12/04/2018 12/03/2018 In active Vitamin D2 50,000 un it capsule RxNorm: 2619339 1 Capsule(s) PO QW 12/04/2018 12/03/2018 Inactive Medrol (Juan Francisco) 4 mg ta blets in a dose pack RxNorm: 768294 Tablet(s) PO as direc liane 12/04/2018 01/19/2019 In active Zithromax Z-Juan Francisco 250 mg tablet RxNorm: 124759 Tablet(s) PO take as directed 12/02/2018 No Stop Date Active Vistaril 25 mg capsule RxNorm: 018934 Capsule(s) 1 Capsule(s) PO TID as needed for anxiety 11/30/2018 02/27/2019 Active Coumadin 5 mg tablet RxNorm: 764452 Tablet(s) TAKE 1 TABLET(S) BY MOUTH FRI, FRI, Friday11/30/2018 12/22/2018 Inactive Generic For:COUMADIN 5MG TA B 05/25/2018 3:20:45 PM N O T I C E Last quantity doesn't match original quantity Diflucan 150 mg tablet RxNorm: 029371 Tablet(s) TABLET(S) 1 TABLET(S) PO QW NEEDED 11/26/2018 12/22/2018 Inactive cholestyramine (with sugar) 4 gram oral powder RxNorm: 693456 1 UNIT DOSE PO QD 11/24/2018 02/21/2019 Ac tive acetazolamide 125 mg tablet RxNorm: 419860 1 Tablet(s) PO BID 11/24/2018 02/21/2019 Active cyclobenzaprine 10 m g tablet RxNorm: 354401 1 Tablet(s) PO QD as needed 11/17/2018 12/22/2018 In active hydrocodone 10 mg-ac etaminophen 325 mg tablet RxNorm: 518377 1 Tablet(s) PO Q4-6H as needed for pain 11/05/2018 01/31/2019 Inactive acetazolamide 125 mg tablet RxNorm: 889111 1 TABLET(S) PO BID 10/26/2018 11/23/2018 Inactive cholestyramine (with sugar) 4 gram oral powder RxNorm: 380643 1 UNIT DOSE PO QD 10/26/2018 11/23/2018 In active Coumadin 5 mg tablet RxNorm: 856725 TAKE 1 TABLET(S) BY MOUTH FRI, FRI, FRI, Friday10/26/2018 11/29/2018 Inactive Generic For:COUMADIN 5MG TAB 05/25/2018 3:20:45 PM N O T I C E Last quantity doesn't match original quantity Diflucan 150 mg tablet RxNorm: 771451 TABLET(S) 1 TABLET(S) PO QW NEEDED 10/26/2018 11/25/2018 In active hydrocodone 10 mg-ac etaminophen 325 mg tablet RxNorm: 399540 1 Tablet(s) PO Q4-6H as needed for pain 10/08/2018 11/04/2018 Inactive acetazolamide 125 mg tablet RxNorm: 392028 1 Tablet(s) PO BID 09/24/2018 10/23/2018 Inactive Coumadin 5 mg tablet RxNorm: 447532 TAKE 1 TABLET(S) BY MOUTH FRI, FRI, FRI, Friday09/24/2018 10/25/2018 Inactive Generic For:COUMADIN 5MG TAB 05/25/2018 3:20:45 PM N O T I C E Last quantity doesn't match original quantity Diflucan 150 mg tablet RxNorm: 164282 Tablet(s) 1 Tablet(s) PO QW as needed 09/24/2018 10/25/2018 In active cyclobenzaprine 10 m g tablet RxNorm: 038715 1 Tablet(s) PO QD as needed 09/24/2018 11/16/2018 In active Vistaril 25 mg capsule RxNorm: 461693 1 Capsule(s) PO TID as needed for anxiet y 09/24/2018 11/29/2018 In active cholestyramine (with sugar) 4 gram oral powder RxNorm: 148661 1 Unit Dose PO QD 09/24/2018 10/23/2018 In active Pyridium 200 mg tablet RxNorm: 6415305 1 Tablet(s) PO TID 09/10/2018 09/19/2018 Inactive Pyridium 200 mg tablet RxNorm: 7644307 1 Tablet(s) PO TID 09/10/2018 09/09/2018 Inactive hydrocodone 10 mg-ac etaminophen 325 mg tablet RxNorm: 409215 1 Tablet(s) PO Q4-6H as needed for pain 09/08/2018 10/07/2018 Inactive cefdinir 300 mg capsule RxNorm: 021728 1 Capsule(s) PO BID 09/08/2018 09/21/2018 Inactive hydrocodone 10 mg-ac etaminophen 325 mg tablet RxNorm: 458101 1 Tablet(s) PO Q4-6H as needed for pain 08/13/2018 09/07/2018 Inactive cyclobenzaprine 10 m g tablet RxNorm: 345237 1 Tablet(s) PO QD as needed 07/23/2018 09/23/2018 In active Diflucan 150 mg tablet RxNorm: 847643 Tablet(s) 1 Tablet(s) PO QW as needed 07/23/2018 09/23/2018 In active Ciprodex 0.3 %-0.1 % ear drops,suspension RxNorm: 918714 4 Drop(s) left otic ( ear) BID 07/23/2018 07/29/2018 Inactive hydrocodone 10 mg-ac etaminophen 325 mg tablet RxNorm: 216993 1 Tablet(s) PO Q4-6H as needed for pain 07/16/2018 08/12/2018 Inactive penicillin V potassi um 500 mg tablet RxNorm: 112563 1 Tablet(s) PO Q6H 07/08/2018 07/17/2018 In active cyclobenzaprine 10 m g tablet RxNorm: 647150 1 Tablet(s) PO QD as needed 06/22/2018 07/22/2018 In active Vistaril 25 mg capsule RxNorm: 945288 1 Capsule(s) PO TID as needed for anxiet y 06/22/2018 09/23/2018 In active cholestyramine (with sugar) 4 gram oral powder RxNorm: 225744 1 Unit Dose PO QD 06/22/2018 09/23/2018 In active hydrocodone 10 mg-ac etaminophen 325 mg tablet RxNorm: 179335 1 Tablet(s) PO Q4-6H as needed for pain 06/17/2018 07/15/2018 Inactive cefdinir 300 mg capsule RxNorm: 121471 1 Capsule(s) PO BID 06/02/2018 06/11/2018 Inactive Diflucan 150 mg tablet RxNorm: 413868 Tablet(s) 1 Tablet(s) PO QW as needed 06/02/2018 07/22/2018 In active Coumadin 5 mg tablet RxNorm: 669920 TAKE 1 TABLET(S) BY MOUTH FRI, FRI, FRI, Friday05/25/2018 07/15/2018 Inactive Generic For:COUMADIN 5MG TAB 05/25/2018 3:20:45 PM N O T I C E Last quantity doesn't match original quantity Imitrex 50 mg tablet RxNorm: 083873 Tablet(s) 1 Tablet(s) PO at headache. re peat in 2 hours if no relief. no more than 2 tabs per day 05/19/2018 No Stop Date Active cholestyramine (with sugar) 4 gram oral powder RxNorm: 264531 1 Unit Dose PO QD 05/19/2018 11/14/2018 In active Vistaril 25 mg capsule RxNorm: 899504 1 Capsule(s) PO TID 05/19/2018 11/14/2018 Inactive Coumadin 5 mg tablet RxNorm: 254632 Tablet(s) TAKE 1 TABLET(S) BY MOUTH FRI, FRI, FRI, Friday05/19/2018 05/24/2018 Inactive Generic For:COUMADIN 5MG TA B N O T I C E Last quantity doesn't match original quantity acetazolamide 125 mg tablet RxNorm: 509249 1 Tablet(s) PO BID 05/19/2018 09/23/2018 Inactive cyclobenzaprine 10 m g tablet RxNorm: 276247 1 Tablet(s) PO QD as needed 05/19/2018 11/17/2018 In active Coumadin 7.5 mg tablet RxNorm: 543192 1 Tablet(s) PO QD , Th, 05/19/2018 01/04/2019 In active ketorolac 10 mg tablet RxNorm: 022757 1 Tablet(s) PO QHS as needed 05/11/2018 No Stop Date Active promethazine 12.5 mg tablet RxNorm: 908473 1 Tablet(s) PO Q6H as needed 04/23/2018 04/22/2018 In active acetazolamide 125 mg tablet RxNorm: 993570 1 Tablet(s) PO BID 04/23/2018 05/18/2018 Inactive Coumadin 5 mg tablet RxNorm: 252590 TAKE 1 TABLET(S) BY MOUTH FRI, FRI, FRI, Friday04/23/2018 05/18/2018 Inactive Generic For:COUMADIN 5MG TAB N O T I C E Last quantity doesn't match original quantity Imitrex 50 mg tablet RxNorm: 294293 1 Tablet(s) PO at headache. repeat in 2 hours if no relief. no more than 2 tabs per day 04/23/2018 05/18/2018 Inactive cyclobenzaprine 10 m g tablet RxNorm: 242016 1 Tablet(s) PO QD as needed 04/23/2018 05/18/2018 In active clindamycin HCl 300 mg capsule RxNorm: 991772 1 Capsule(s) PO TID 04/02/2018 04/11/2018 Inactive hydrocodone 10 mg-ac etaminophen 325 mg tablet RxNorm: 815211 1 Tablet(s) PO Q4-6H as needed for pain 03/24/2018 06/16/2018 Inactive promethazine 12.5 mg tablet RxNorm: 509762 1 Tablet(s) PO Q6H 03/23/2018 04/23/2018 Inactive Imitrex 50 mg tablet RxNorm: 876868 1 Tablet(s) PO at headache. repeat in 2 hours if no relief. no more than 2 tabs per day 03/23/2018 04/22/2018 Inactive Diflucan 150 mg tablet RxNorm: 314529 1 Tablet(s) PO QW as needed 03/23/2018 06/01/2018 Inactive Coumadin 5 mg tablet RxNorm: 852737 Tablet(s) 1 Tablet(s) PO Mon, Wed, Fri, Sun 03/23/2018 04/22/2018 In active Imitrex 100 mg tablet RxNorm: 716926 Tablet(s) PO take one tablet at sign of headache and repeat in 2 hours if ineffective 03/16/2018 04/01/2018 Inactive ondansetron HCl 4 mg tablet RxNorm: 258042 1 Tablet(s) PO Q4H as needed for nausea 02/24/2018 04/01/2018 In active hydrocodone 10 mg-ac etaminophen 325 mg tablet RxNorm: 677367 1 Tablet(s) PO Q4-6H as needed for pain 02/24/2018 03/23/2018 Inactive Coumadin 5 mg tablet RxNorm: 388752 Tablet(s) 1 Tablet(s) PO Mon, Wed, Fri, Sun 02/20/2018 03/22/2018 In active promethazine 12.5 mg tablet RxNorm: 841080 1 Tablet(s) PO Q6H 02/20/2018 03/22/2018 Inactive Pepcid 40 mg tablet RxNorm: 550290 1 Tablet(s) PO BID for stomach 02/16/2018 03/17/2018 In active Flagyl 500 mg tablet RxNorm: 497500 1 Tablet(s) PO TID 02/16/2018 02/25/2018 Inactive Imitrex 50 mg tablet RxNorm: 961460 1 Tablet(s) PO at headache. repeat in 2 hours if no relief. no more than 2 tabs per day 01/27/2018 03/15/2018 Inactive Coumadin 5 mg tablet RxNorm: 021343 1 Tablet(s) PO Mon, Fri, Fri, Sun 01/27/2018 02/20/2018 In active amoxicillin 875 mg t ablet RxNorm: 152610 1 Tablet(s) PO BID 01/26/2018 02/04/2018 Inactive Imitrex 50 mg tablet RxNorm: 503526 1 Tablet(s) PO at headache. repeat in 2 hours if no relief. no more than 2 tabs per day 01/26/2018 03/22/2018 Inactive cyclobenzaprine 10 m g tablet RxNorm: 885318 1 Tablet(s) PO QD as needed 01/23/2018 03/23/2018 In active promethazine 12.5 mg tablet RxNorm: 405240 1 Tablet(s) PO Q6H 01/23/2018 02/19/2018 Inactive Diflucan 150 mg tablet RxNorm: 754628 1 Tablet(s) PO QW as needed 01/22/2018 03/22/2018 Inactive acetazolamide 125 mg tablet RxNorm: 003443 1 Tablet(s) PO BID 01/22/2018 04/21/2018 Inactive Imitrex 50 mg tablet RxNorm: 193001 1 Tablet(s) PO at headache. repeat in 2 hours if no relief. no more than 2 tabs per day 01/02/2018 01/25/2018 Inactive Ciprodex 0.3 %-0.1 % ear drops,suspension RxNorm: 807663 4 Drop(s) otic (ear) BID 01/01/2018 01/07/2018 In active Coumadin 7.5 mg tablet RxNorm: 115449 1 Tablet(s) PO QD , , 12/29/2017 05/18/2018 In active Coumadin 5 mg tablet RxNorm: 986723 1 Tablet(s) PO Mon, Fri, Fri, Sun 12/29/2017 01/26/2018 In active cyclobenzaprine 10 m g tablet RxNorm: 195431 1 Tablet(s) PO QD as needed 12/29/2017 01/22/2018 In active clindamycin HCl 300 mg capsule RxNorm: 981415 1 Capsule(s) PO TID 12/26/2017 12/25/2017 Inactive Imitrex 50 mg tablet RxNorm: 430649 1 Tablet(s) PO at headache. repeat in 2 hours if no relief. no more than 2 tabs per day 12/26/2017 01/01/2018 Inactive clindamycin HCl 300 mg capsule RxNorm: 402435 1 Capsule(s) PO TID 12/26/2017 01/04/2018 Inactive Zithromax Z-Juan Francisco 250 mg tablet RxNorm: 388749 Tablet(s) PO take as directed 12/25/2017 12/25/2017 In active promethazine 12.5 mg tablet RxNorm: 793876 1 Tablet(s) PO Q6H 12/25/2017 01/22/2018 Inactive clindamycin HCl 300 mg capsule RxNorm: 021954 1 Capsule(s) PO TID 12/11/2017 12/17/2017 Inactive Vistaril 25 mg capsule RxNorm: 608859 1 Capsule(s) PO TID as needed for anxiet y 12/04/2017 05/18/2018 In active cholestyramine (with sugar) 4 gram oral powder RxNorm: 905994 1 Unit Dose PO QD 12/04/2017 05/18/2018 In active Coumadin 7.5 mg tablet RxNorm: 839758 1 Tablet(s) PO QD 12/04/2017 12/28/2017 Inactive Coumadin 5 mg tablet RxNorm: 044241 1 Tablet(s) PO Friday through Friday12/04/2017 12/28/2017 In active hydrocodone 10 mg-ac etaminophen 325 mg tablet RxNorm: 908021 1 Tablet(s) PO Q4-6H as needed for pain 12/01/2017 02/23/2018 Inactive hydrocodone 10 mg-ac etaminophen 325 mg tablet RxNorm: 790951 1 Tablet(s) PO Q4-6H as needed for pain 11/03/2017 11/30/2017 Inactive cyclobenzaprine 10 m g tablet RxNorm: 132217 1 Tablet(s) PO QD as needed 10/30/2017 12/28/2017 In active cholestyramine (with sugar) 4 gram oral powder RxNorm: 429412 1 Unit Dose PO QD 10/30/2017 11/28/2017 In active amoxicillin 875 mg t ablet RxNorm: 038436 1 Tablet(s) PO BID 10/08/2017 10/07/2017 Inactive amoxicillin 875 mg t ablet RxNorm: 602666 1 Tablet(s) PO BID 10/08/2017 10/17/2017 Inactive penicillin V potassi um 500 mg tablet RxNorm: 615295 1 Tablet(s) PO BID 10/06/2017 10/07/2017 In active hydrocodone 10 mg-ac etaminophen 325 mg tablet RxNorm: 289147 1 Tablet(s) PO Q4-6H as needed for pain 10/06/2017 11/02/2017 Inactive hydrocodone 10 mg-ac etaminophen 325 mg tablet RxNorm: 893080 1 Tablet(s) PO Q4-6H as needed for pain 10/06/2017 12/31/2018 Inactive Vigamox 0.5 % eye drops RxNorm: 306106 1 Drop(s) ophthalmic (eye) TID ONLY ADMI NISTER IF INFECTION 10/03/2017 10/02/2017 Inactive Vigamox 0.5 % eye drops RxNorm: 609268 1 Drop(s) ophthalmic (eye) TID ONLY ADMI NISTER IF INFECTION 10/03/2017 10/09/2017 Inactive cholestyramine (with sugar) 4 gram oral powder RxNorm: 011951 1 Unit Dose PO QD 09/23/2017 10/30/2017 In active acetazolamide 125 mg tablet RxNorm: 115682 1 Tablet(s) PO BID 09/23/2017 12/21/2017 Inactive Coumadin 5 mg tablet RxNorm: 210209 1 Tablet(s) PO QD FRIDAY THROUGH Friday09/17/2017 11/04/2017 In active mupirocin 2 % topica l ointment RxNorm: 787293 1 Application TOP TID 09/10/2017 11/04/2017 Inactive hydrocodone 10 mg-ac etaminophen 325 mg tablet RxNorm: 937187 1 Tablet(s) PO Q4-6H as needed for pain 09/08/2017 10/05/2017 Inactive Questran 4 gram powd er for susp in a packet RxNorm: 965410 MIX ONE PACKET IN 6 O UNCES OF APPLE SAUCE OR OTHER SOFT FOOD AND EAT ONCE DAILY 09/02/2017 11/04/2017 Inactive Diflucan 150 mg tablet RxNorm: 653149 1 Tablet(s) PO QW as needed 08/14/2017 01/21/2018 Inactive hydrocodone 10 mg-ac etaminophen 325 mg tablet RxNorm: 295578 1 Tablet(s) PO Q4-6H as needed for pain 08/11/2017 09/07/2017 Inactive Tamiflu 75 mg capsule RxNorm: 598962 1 Capsule(s) PO QD 08/11/2017 08/10/2017 Inactive Tamiflu 75 mg capsule RxNorm: 500708 1 Capsule(s) PO QD 08/11/2017 08/20/2017 Inactive Coumadin 5 mg tablet RxNorm: 916259 1 Tablet(s) PO QD FRIDAY THROUGH Friday07/22/2017 09/16/2017 In active Coumadin 5 mg tablet RxNorm: 666664 TAKE ONE TABLET BY MOUTH ONCE DAILY THROUGH Friday07/16/2017 07/21/2017 Inactive cyclobenzaprine 10 m g tablet RxNorm: 706872 1 Tablet(s) PO QD as needed 07/15/2017 10/30/2017 In active hydrocodone 10 mg-ac etaminophen 325 mg tablet RxNorm: 193409 1 Tablet(s) PO Q4-6H as needed for pain 07/14/2017 08/10/2017 Inactive warfarin 5 mg tablet RxNorm: 375879 1 Tablet(s) PO Fri Sat Jamee nt is due for PT/INR 06/18/2017 07/15/2017 Inactive Questran Light 4 gra m powder for susp in a packet RxNorm: 9925868 1 PO QD 06/18/2017 11/04/2017 In active cyclobenzaprine 10 m g tablet RxNorm: 111680 1 Tablet(s) PO QD as needed 06/18/2017 07/14/2017 In active hydrocodone 10 mg-ac etaminophen 325 mg tablet RxNorm: 627231 1 Tablet(s) PO Q4-6H as needed for pain 06/18/2017 07/13/2017 Inactive Lunesta 1 mg tablet RxNorm: 032693 1 Tablet(s) PO QHS as needed 05/27/2017 06/25/2017 Inactive Zithromax Z-Juan Francisco 250 mg tablet RxNorm: 539963 1 Tablet(s) PO Take a s directed 05/27/2017 11/04/2017 In active ProAir HFA 90 mcg/ac tuation aerosol inhaler RxNorm: 978063 2 Puff(s) INH Q4H 05/27/2017 01/19/2019 In active ProAir HFA 90 mcg/ac tuation aerosol inhaler RxNorm: 876228 2 Puff(s) INH Q4H 05/27/2017 05/26/2017 In active promethazine 6.25 mg -codeine 10 mg/5 mL syrup RxNorm: 761083 5 Milliliter(s) PO Q4 H as needed 05/27/2017 11/04/2017 Inactive Diflucan 150 mg tablet RxNorm: 566123 1 Tablet(s) PO QW as needed 05/26/2017 05/25/2017 Inactive cyclobenzaprine 10 m g tablet RxNorm: 416295 1 Tablet(s) PO QD as needed 05/20/2017 06/18/2017 In active Lunesta 2 mg tablet RxNorm: 050160 1 Tablet(s) PO QHS 05/20/2017 05/27/2017 Inactive Zithromax Z-Juan Francisco 250 mg tablet RxNorm: 272061 Tablet(s) PO As Direc liane 05/12/2017 05/19/2017 In active cyclobenzaprine 5 mg tablet RxNorm: 827635 1 Tablet(s) PO QPM 03/28/2017 05/19/2017 Inactive Vistaril 25 mg capsule RxNorm: 618648 1 Capsule(s) PO TID as needed for anxiet y 03/28/2017 09/23/2017 In active Questran 4 gram powd er for susp in a packet RxNorm: 510407 1 Unit(s) PO QD 03/06/2017 06/18/2017 In active Cipro 500 mg tablet RxNorm: 877368 1 Tablet(s) PO BID 02/27/2017 02/26/2017 Inactive Pyridium 200 mg tablet RxNorm: 6004607 1 Tablet(s) PO TID for bladder spasms 02/27/2017 03/31/2017 In active Cipro 500 mg tablet RxNorm: 592499 1 Tablet(s) PO BID 02/27/2017 03/05/2017 Inactive Levsin 0.125 mg tablet RxNorm: 7874844 1 Tablet(s) PO QID as needed for spasm 02/25/2017 11/04/2017 In active tamsulosin 0.4 mg ca psule RxNorm: 841101 1 Capsule(s) PO QPM 02/25/2017 03/26/2017 Inactive tamsulosin 0.4 mg ca psule RxNorm: 803485 1 Capsule(s) PO QPM 02/25/2017 02/24/2017 Inactive Pyridium 100 mg tablet RxNorm: 3477515 1 Tablet(s) PO TID as needed 02/21/2017 03/31/2017 In active acetazolamide 125 mg tablet RxNorm: 385452 1 Tablet(s) PO BID 02/07/2017 09/23/2017 Inactive Questran 4 gram powd er for susp in a packet RxNorm: 186655 1 Unit(s) PO QD 02/06/2017 03/06/2017 In active cyclobenzaprine 5 mg tablet RxNorm: 801851 1 Tablet(s) PO QPM 02/05/2017 03/27/2017 Inactive BuSpar 5 mg tablet RxNorm: 945504 1 Tablet(s) PO BID 02/03/2017 03/31/2017 Inactive Diflucan 150 mg tablet RxNorm: 160078 1 Tablet(s) PO QW as needed 01/15/2017 05/26/2017 Inactive Valtrex 1 gram tablet RxNorm: 207119 1 Tablet(s) PO TID 01/13/2017 01/19/2017 Inactive Vistaril 25 mg capsule RxNorm: 824200 1 Capsule(s) PO TID as needed for anxiet y 01/13/2017 03/27/2017 In active hydrocodone 10 mg-ac etaminophen 325 mg tablet RxNorm: 718598 1 Tablet(s) PO Q4-6H as needed for pain 01/13/2017 06/17/2017 Inactive Questran 4 gram powd er for susp in a packet RxNorm: 844956 1 Unit(s) PO QD 01/13/2017 09/23/2017 In active acetazolamide 125 mg tablet RxNorm: 063463 1 Tablet(s) PO BID 01/13/2017 02/06/2017 Inactive methotrexate (PF) 20 mg/0.4 mL subcutaneous auto-injector RxNorm: 5241546 Milliliter(s) SQ QW 12/26/2016 01/05/2017 Inactive Compazine 10 mg tablet RxNorm: 823157 1 Tablet(s) PO TID as needed for nausea 12/18/2016 11/04/2017 In active hydrocodone 10 mg-ac etaminophen 325 mg tablet RxNorm: 199210 1 Tablet(s) PO Q4-6H as needed for pain 12/17/2016 01/12/2017 Inactive Questran 4 gram powd er for susp in a packet RxNorm: 226723 1 Unit(s) PO QD 12/17/2016 01/13/2017 In active cyclobenzaprine 5 mg tablet RxNorm: 937386 1 Tablet(s) PO QPM 12/17/2016 02/05/2017 Inactive Questran Light 4 gra m powder for susp in a packet RxNorm: 0748342 1 PO QD 11/29/2016 06/17/2017 In active Zofran ODT 4 mg disi ntegrating tablet RxNorm: 135959 1 Tablet(s) PO Q4H as needed for nausea 11/29/2016 12/17/2016 Inactive methotrexate sodium 2.5 mg tablet RxNorm: 298801 4 Tablet(s) PO week 1 then 5 tablets po week 2 then 6 tablets weekly 11/27/2016 12/25/2016 Inactive warfarin 7.5 mg tablet RxNorm: 184289 1 Tablet(s) PO three times weekly 11/14/2016 03/31/2017 In active warfarin 7.5 mg tablet RxNorm: 549111 1 Tablet(s) PO three times weekly 11/13/2016 11/13/2016 In active Diflucan 150 mg tablet RxNorm: 853049 1 Tablet(s) PO QW as needed 11/05/2016 01/14/2017 Inactive Vistaril 25 mg capsule RxNorm: 989496 1 Capsule(s) PO TID as needed for anxiet y 11/04/2016 11/03/2016 In active Coumadin 5 mg tablet RxNorm: 461551 1 Tablet(s) PO Friday through Friday11/04/2016 06/18/2017 In active acetazolamide 125 mg tablet RxNorm: 857439 1 Tablet(s) PO BID 11/04/2016 01/13/2017 Inactive sumatriptan 100 mg t ablet RxNorm: 717862 1 Tablet(s) PO at hea dache onset. May repeat in 2 hours if headache remains 11/04/2016 11/04/2017 Inactive Vistaril 25 mg capsule RxNorm: 122962 1 Capsule(s) PO TID as needed for anxiet y 11/04/2016 01/12/2017 In active hydrocodone 10 mg-ac etaminophen 325 mg tablet RxNorm: 567957 1 Tablet(s) PO Q4-6H as needed for pain 11/04/2016 12/16/2016 Inactive Coumadin 5 mg tablet RxNorm: 132202 TAKE ONE TABLET BY MOUTH ON SUN., FRI., FRI., AND FRI., AND TAKE ONE AND ONE-HALF TABLETS FRI., ., AND 10/16/2016 10/25/2016 In active Coumadin 5 mg tablet RxNorm: 489986 1 Tablet(s) PO Friday through Friday10/15/2016 11/03/2016 In active hydrocodone 10 mg-ac etaminophen 325 mg tablet RxNorm: 821595 1 Tablet(s) PO Q4-6H as needed for pain 10/14/2016 11/03/2016 Inactive hydrocodone 10 mg-ac etaminophen 325 mg tablet RxNorm: 732993 1 Tablet(s) PO Q4-6H as needed for pain 09/20/2016 10/13/2016 Inactive warfarin 7.5 mg tablet RxNorm: 651008 1 Tablet(s) PO three times weekly 09/20/2016 11/12/2016 In active Diflucan 150 mg tablet RxNorm: 738420 1 Tablet(s) PO QW as needed 08/20/2016 11/04/2016 Inactive acetazolamide 125 mg tablet RxNorm: 954423 1 Tablet(s) PO BID 08/20/2016 11/04/2016 Inactive Diflucan 150 mg tablet RxNorm: 778801 1 Tablet(s) PO QW as needed 08/20/2016 08/19/2016 Inactive Vistaril 25 mg capsule RxNorm: 065989 Capsule(s) TAKE ONE CAPSULE BY MOUTH THR EE TIMES DAILY NEEDED FOR ANXIETY 08/19/2016 11/04/2016 Inactive hydrocodone 10 mg-ac etaminophen 325 mg tablet RxNorm: 183253 1 Tablet(s) PO Q4-6H as needed for pain 08/05/2016 09/19/2016 Inactive Diflucan 150 mg tablet RxNorm: 494158 1 Tablet(s) PO QW as needed 07/19/2016 08/19/2016 Inactive tizanidine 4 mg tablet RxNorm: 467306 1-2 Tablet(s) PO QHS as needed for muscl e spasm and sleep 06/03/2016 06/10/2016 Inactive Questran Light 4 gra m powder for susp in a packet RxNorm: 9595528 1 PO QD 05/14/2016 08/11/2016 In active Macrobid 100 mg capsule RxNorm: 723433 1 Capsule(s) PO BID 04/23/2016 05/02/2016 Inactive mupirocin 2 % topica l ointment RxNorm: 273047 Apply topically to af fected area 2-3 times daily 04/17/2016 07/07/2016 Inactive Vistaril 25 mg capsule RxNorm: 982833 TAKE ONE CAPSULE BY MOUTH THREE TIMES DA LOLI NEEDED FOR ANXIETY 04/17/2016 11/04/2016 Inactive Diflucan 150 mg tablet RxNorm: 440056 1 Tablet(s) PO QW as needed 04/16/2016 07/18/2016 Inactive cyclobenzaprine 5 mg tablet RxNorm: 188981 TAKE ONE TABLET BY [facility] ONCE DAILY IN THE EVENING 03/25/2016 12/17/2016 Inactive Pyridium 100 mg tablet RxNorm: 3055920 1 Tablet(s) PO TID as needed 03/20/2016 03/19/2016 In active Diflucan 150 mg tablet RxNorm: 738389 1 Tablet(s) PO QW as needed 03/20/2016 04/15/2016 Inactive Pyridium 100 mg tablet RxNorm: 5867930 1 Tablet(s) PO TID as needed 03/20/2016 08/26/2016 In active Diflucan 150 mg tablet RxNorm: 031401 1 Tablet(s) PO QW as needed 03/19/2016 03/19/2016 Inactive Coumadin 7.5 mg tablet RxNorm: 205042 1 Tablet(s) PO QD 03/14/2016 05/12/2016 Inactive acetazolamide 125 mg tablet RxNorm: 179313 1 Tablet(s) PO BID 02/28/2016 08/20/2016 Inactive Coumadin 5 mg tablet RxNorm: 158541 1 TABLET(S) PO QD THREE TIMES A WEEK AND 1 1/2 TAB (7.5MG) FOUR TIMES A WEEK 02/28/2016 03/13/2016 Inactive Questran Light 4 gra m powder for susp in a packet RxNorm: 0397983 1 PO QD 02/13/2016 05/12/2016 In active Diflucan 150 mg tablet RxNorm: 377978 1 Tablet(s) PO QW as needed 01/19/2016 03/11/2016 Inactive Diflucan 150 mg tablet RxNorm: 395427 1 Tablet(s) PO QW as needed 01/18/2016 01/18/2016 Inactive promethazine 25 mg t ablet RxNorm: 776076 1 Tablet(s) PO Q4H as needed for nausea 12/05/2015 12/17/2016 In active Imitrex 100 mg tablet RxNorm: 932023 1 Tablet(s) PO at headache onset and may repeat in 2 hours if needed 12/05/2015 03/31/2017 Inactive Diflucan 150 mg tablet RxNorm: 862480 1 Tablet(s) PO QW as needed 11/24/2015 01/17/2016 Inactive Diflucan 150 mg tablet RxNorm: 317316 1 Tablet(s) PO QW as needed 11/21/2015 11/23/2015 Inactive Coumadin 5 mg tablet RxNorm: 709178 1 Tablet(s) PO QD three times a week and 1 1/2 tab (7.5mg) four times a week 11/13/2015 02/01/2016 Inactive Questran Light 4 gra m powder for susp in a packet RxNorm: 373391 1 PO QD 11/13/2015 02/10/2016 In active acetazolamide 125 mg tablet RxNorm: 474115 1 Tablet(s) PO BID 11/13/2015 02/10/2016 Inactive amoxicillin 875 mg t ablet RxNorm: 115139 1 Tablet(s) PO BID 11/09/2015 11/18/2015 Inactive Coumadin 7.5 mg tablet RxNorm: 270786 1 Tablet(s) PO on and 10/26/2015 10/25/2015 In active Coumadin 7.5 mg tablet RxNorm: 126273 1 Tablet(s) PO on and 10/26/2015 11/12/2015 In active Coumadin 5 mg tablet RxNorm: 811330 1 Tablet(s) PO Friday, Friday, Friday and Friday. 1.5 tablets Friday, and Friday. 10/26/2015 10/25/2015 Inactive Coumadin 5 mg tablet RxNorm: 709110 1 Tablet(s) PO Friday, Friday, Friday , and Friday. Take 1 1/2 on Friday, and Friday10/26/2015 11/12/2015 Inactive Coumadin 7.5 mg tablet RxNorm: 485971 1 Tablet(s) PO on and 10/26/2015 10/26/2015 In active Coumadin 5 mg tablet RxNorm: 447325 1 Tablet(s) PO Friday, Friday, Friday and Friday. 1.5 tablets Friday, and Friday. 10/26/2015 02/14/2016 Inactive Vistaril 25 mg capsule RxNorm: 904589 1 Capsule(s) PO TID as needed for anxiet y 10/10/2015 04/06/2016 In active cyclobenzaprine 5 mg tablet RxNorm: 857885 1 Tablet(s) PO QPM 10/10/2015 03/24/2016 Inactive Vistaril 25 mg capsule RxNorm: 946516 1 Capsule(s) PO TID as needed for anxiet y 10/10/2015 10/09/2015 In active cyclobenzaprine 5 mg tablet RxNorm: 407734 1 Tablet(s) PO QPM 10/10/2015 10/09/2015 Inactive Coumadin 5 mg tablet RxNorm: 663553 1 Tablet(s) PO Friday, Friday, Friday and Friday. 1.5 tablets Friday, and Friday. 10/02/2015 10/01/2015 Inactive Coumadin 5 mg tablet RxNorm: 466428 1 Tablet(s) PO Friday, Friday, Friday and Friday. 1.5 tablets Friday, and Friday. 10/02/2015 10/25/2015 Inactive amoxicillin 500 mg t ablet RxNorm: 125316 1 Tablet(s) PO TID 10/02/2015 10/11/2015 Inactive hydrocodone 10 mg-ac etaminophen 325 mg tablet RxNorm: 852053 1 Tablet(s) PO Q4-6H as needed for pain 10/02/2015 08/04/2016 Inactive Diflucan 150 mg tablet RxNorm: 420211 1 Tablet(s) PO QW as needed 10/02/2015 10/01/2015 Inactive amoxicillin 500 mg t ablet RxNorm: 063166 1 Tablet(s) PO TID 10/02/2015 10/01/2015 Inactive Diflucan 150 mg tablet RxNorm: 958897 1 Tablet(s) PO QW as needed 10/02/2015 10/09/2015 Inactive Coumadin 5 mg tablet RxNorm: 175967 1 Tablet(s) PO Mon.,Wed.,Fri., Sat. and Sun. 09/14/2015 10/01/2015 Inactive acetazolamide 125 mg tablet RxNorm: 341140 1 Tablet(s) PO BID 09/14/2015 11/12/2015 Inactive hydrocodone 10 mg-ac etaminophen 325 mg tablet RxNorm: 181008 1 Tablet(s) PO Q4-6H as needed for pain 09/01/2015 10/01/2015 Inactive Vistaril 25 mg capsule RxNorm: 837451 1 Capsule(s) PO TID as needed for anxiet y 08/24/2015 09/22/2015 In active baclofen 10 mg tablet RxNorm: 664463 1/2 Tablet(s) PO QAM and 1 tablet at bed time 07/27/2015 10/09/2015 Inactive Vistaril 25 mg capsule RxNorm: 119745 1 Capsule(s) PO BID 07/24/2015 08/22/2015 Inactive Savella 12.5 mg (5)- 25 mg(8)-50mg(42) tablets in a dose pack RxNorm: 922670 Tablet(s) PO as directed 07/10/2015 07/26/2015 Inactive hydrocodone 10 mg-ac etaminophen 325 mg tablet RxNorm: 100752 1 Tablet(s) PO Q6H as needed for pain 06/29/2015 08/10/2015 Inactive Coumadin 7.5 mg tablet RxNorm: 787431 1 Tablet(s) PO on and 06/21/2015 10/25/2015 In active Vistaril 25 mg capsule RxNorm: 754427 1 Capsule(s) PO BID 06/20/2015 07/24/2015 Inactive Cymbalta 30 mg capsu le,delayed release RxNorm: 788616 1 Capsule(s) PO QD 06/08/2015 07/09/2015 In active Coumadin 5 mg tablet RxNorm: 464797 1 Tablet(s) PO Mon.,Wed.,Fri., Sat. and Sun. 06/08/2015 07/07/2015 Inactive Coumadin 5 mg tablet RxNorm: 937366 1 Tablet(s) PO Mon.,Fri.,Fri., Sat. and Sun. 05/24/2015 06/07/2015 Inactive Coumadin 7.5 mg tablet RxNorm: 082141 1 Tablet(s) PO on and 05/24/2015 06/20/2015 In active Coumadin 7.5 mg tablet RxNorm: 017926 1 Tablet(s) PO on Friday No Start Date Active Vitamin B12 1000mcg Tablet RxNorm: 1/2 Tablet(s) PO QD No Start Date Active Bystolic 10 mg tablet RxNorm: 990455 3 Tablet(s) PO QAM No Start Date Active Vitamin D3 5,000 uni t tablet RxNorm: 185673 1 Tablet(s) PO QD No Start Date Active Bystolic 5 mg tablet RxNorm: 025453 1 Tablet(s) PO NOON No Start Date Active sumatriptan 100 mg t ablet RxNorm: 080169 1 Tablet(s) PO at hea dache onset. May repeat in 2 hours if headache remains No Start Date 11/03/2016 Inactive warfarin 7.5 mg tablet RxNorm: 468930 1 Tablet(s) PO three times weekly No Start Date 09/19/2016 Inactive ondansetron HCl 4 mg tablet RxNorm: 429890 1 Tablet(s) PO Q4H as needed for nausea No Start Date 02/23/2018 Inactive Imitrex 100 mg tablet RxNorm: 910764 1 Tablet(s) PO at headache onset and may repeat in 2 hours if needed No Start Date 12/04/2015 Inactive Vitamin B12 1000mcg Tablet RxNorm: 1/2 Tablet(s) PO on , hurs, Sat and Sun and 1 tab all other days No Start Date 04/01/2018 Inactive baclofen 10 mg tablet RxNorm: 731589 1/2 Tablet(s) PO QAM and 1 tablet at bed time No Start Date 07/26/2015 Inactive tizanidine 4 mg tablet RxNorm: 284838 1-2 Tablet(s) PO QHS as needed for muscl e spasm and sleep No Start Date 06/02/2016 Inactive Flexeril 5 mg tablet RxNorm: 798872 1 Tablet(s) PO QD No Start Date 10/09/2015 Inactive methotrexate (PF) 20 mg/0.4 mL subcutaneous auto-injector RxNorm: 1962542 SQ QW No Start Date 12/25/2016 Inactive Bystolic 5 mg tablet RxNorm: 572956 1 Tablet(s) PO as needed No Start Date 03/15/2018 Inactive Questran Light 4 gra m powder for susp in a packet RxNorm: 792556 1 PO QD No Start Date 11/12/2015 Inactive Bystolic 10 mg tablet RxNorm: 725062 1 Tablet(s) PO QAM No Start Date 11/04/2017 Inactive warfarin 5 mg tablet RxNorm: 412901 1 Tablet(s) PO Fri Sat Sun No Start Date 06/17/2017 Inactive hydrocodone 10 mg-ac etaminophen 325 mg tablet RxNorm: 747847 1 Tablet(s) PO 4-6hou rs as needed for pain No Start Date 08/31/2015 Inactive cyclobenzaprine 5 mg tablet RxNorm: 808341 1 Tablet(s) PO QPM No Start Date 12/16/2016 Inactive Lovenox 100 mg/mL carmona bcutaneous syringe RxNorm: 525040 1 Milliliter(s) SQ QD No Start Date 06/07/2015 Inactive Levsin 0.125 mg tablet RxNorm: 3320074 1 Tablet(s) PO QID as needed for spasm No Start Date 02/24/2017 Inactive Savella 12.5 mg (5)- 25 mg(8)-50mg(42) tablets in a dose pack RxNorm: 226409 Tablet(s) PO as directed No Start Date 07/09/2015 Inactive Coumadin 10 mg tablet RxNorm: 687690 1 Tablet(s) PO QD No Start Date 2015 Inactive tramadol 50 mg tablet RxNorm: 428342 1 Tablet(s) PO TID as needed for pain No Start Date 03/31/2017 Inactive BuSpar 5 mg tablet RxNorm: 478247 1 Tablet(s) PO BID No Start Date 02/02/2017 Inactive Vistaril 25 mg capsule RxNorm: 386299 1 Capsule(s) PO BID No Start Date 06/19/2015 Inactive Tessalon Perles 100 mg capsule RxNorm: 621074 1 Capsule(s) PO TID a s needed for cough No Start Date 01/19/2019 Inactive promethazine 12.5 mg tablet RxNorm: 215783 1 Tablet(s) PO Q6H as needed No Start Date 04/22/2018 Inactive Coumadin 7.5 mg tablet RxNorm: 355224 1 Tablet(s) PO Fri and Friday No Start Date 03/13/2016 Inactive Imitrex 50 mg tablet RxNorm: 712813 1 Tablet(s) PO at headache. repeat in 2 hours if no relief. no more than 2 tabs per day No Start Date 12/25/2017 Inactive acetazolamide 125 mg tablet RxNorm: 048783 1 Tablet(s) PO BID No Start Date 09/13/2015 Inactive methotrexate (PF) 12 .5 mg/0.4 mL subcutaneous auto-injector RxNorm: 3181482 1 Milliliter(s) SQ QW No Start Date 03/31/2017 Inactive Bystolic 10 mg tablet RxNorm: 936043 1 Tablet(s) PO QAM No Start Date 03/25/2018 Inactive Zithromax Z-Juan Francisco 250 mg tablet RxNorm: 418151 Tablet(s) PO As Direc liane No Start Date 05/11/2017 Inactive Bystolic 20 mg tablet RxNorm: 846053 1 Tablet(s) PO QD No Start Date 03/15/2018 Inactive Questran 4 gram powd er for susp in a packet RxNorm: 267189 1 Unit(s) PO QD No Start Date 12/16/2016 Inactive Vitamin D3 1,000 uni t tablet RxNorm: 633683 1 Tablet(s) PO QD No Start Date 04/01/2018 Inactive Coumadin 5 mg tablet RxNorm: 385380 1 Tablet(s) PO Friday through Friday No Start Date 03/13/2016 Inactive warfarin 5 mg tablet RxNorm: 936853 1 Tablet(s) PO four days per week No Start Date 04/01/2018 Inactive ProAir HFA 90 mcg/ac tuation aerosol inhaler RxNorm: 133604 2 Puff(s) INH Q4H as needed No Start Date 01/19/2019 Inactive Bystolic 5 mg tablet RxNorm: 132888 1 Tablet(s) PO QHS No Start Date 03/25/2018 Inactive Compazine 10 mg tablet RxNorm: 528894 1 Tablet(s) PO TID as needed for nausea No Start Date 12/17/2016 Inactive Pyridium 200 mg tablet RxNorm: 4358549 1 Tablet(s) PO TID for bladder spasms No Start Date 02/26/2017 Inactive hydrocodone 10 mg-ac etaminophen 325 mg tablet RxNorm: 093528 1 Tablet(s) PO as nee ded No Start Date 06/28/2015 Inactive warfarin 7.5 mg tablet RxNorm: 985919 1 Tablet(s) PO on Friday and No Start Date 04/01/2018 Inactive promethazine 25 mg t ablet RxNorm: 142043 1 Tablet(s) PO Q4H as needed for nausea No Start Date 12/04/2015 Inactive Lovenox 30 mg/0.3 mL subcutaneous syringe RxNorm: 999554 1 Milliliter(s) SQ QD No Start Date [...] 01/19/2019 COUGH ICD-10: R05 ICD-9: 786.2 01/19/2019 shelter (current) use of anticoagulants ICD-10: Z79.01 ICD-9: [...] and perineal pain ICD-10: R10 .2 ICD-9: [id number] 02/10/2017 Hematuria, unspecified ICD-10: R31.9 ICD-9: 599.70 [...] follow up 07/08/2018 follow up 07/02/2018 Alivia ient is currently on Amoxil for positive [...] Code Result Date ANTI STREPTOLYSIN O TITER(ASO) 50091 ASO Titr 110 IU/mL 9 MYCOPLASMA ANTIBODY, IFA [id number] Mycoplas Ab IgG 1:64 01/20/2019 MYCOPLASMA ANTIBODY, IFA [id number] Mycoplas Ab IgM <1:10 01/20/2019 MYCOPLASMA ANTIBODY, IFA 75562B9 Mycoplasma Intp See Below 01/20/2019 LEGIONELLA 5320555 Legio adore Ab <1:128 01/20/2019 HEPATIC FUNCTION PANEL A 81515 Total Protein 6.3 g/dL 01/19/2019 HEPATIC FUNCTION PANEL A 85073 AST 16 U/L 01/19/2019 HEPATIC FUNCTION PANEL A 27839 ALK PHOS 52 U/L 01/19/2019 HEPATIC FUNCTION PANEL A 91135 Bili Total 0.2 mg/dL 01/19/2019 HEPATIC FUNCTION PANEL A 80949 ALT 20 U/L 01/19/2019 HEPATIC FUNCTION PANEL A 11466 ALBUMIN 4.3 g/dL 01/19/2019 HEPATIC FUNCTION PANEL A 73033 Bili Direct 0.1 mg/dL 01/19/2019 PT 3102441 PT 27.5 Seconds 01/19/2019 PT 2481475 INR 2.6 01/19/2019 COMPLETE BLOOD COUNT 3836204 WBC 11.1 10e9/L 01/19/2019 COMPLETE BLOOD COUNT 7622249 RBC 4.14 10e12/L 9 COMPLETE BLOOD COUNT 5561461 HEMOGLOBIN 13.9 g/dL 01/19/2019 COMPLETE BLOOD COUNT 8199374 HEMATOCRIT 40.7 % 01/19/2019 COMPLETE BLOOD COUNT 0834847 MCV 98.3 fL 01/19/2019 COMPLETE BLOOD COUNT 0238644 MCH 33.6 pg 01/19/2019 COMPLETE BLOOD COUNT 6407009 MCHC 34.2 g/dL 01/19/2019 COMPLETE BLOOD COUNT 9195121 PLATELET COUNT 334 10e9/L 01/19/2019 COMPLETE BLOOD COUNT 6431920 Mean Plt Volume 8.9 fL 01/19/2019 COMPLETE BLOOD COUNT 8758383 Neut Auto 60.2 % 01/19/2019 COMPLETE BLOOD COUNT 8262731 Lymph Auto 32.5 % 01/19/2019 COMPLETE BLOOD COUNT 6851130 [place] Auto 6.1 % 01/19/2019 COMPLETE BLOOD COUNT 3609815 RDW 12.5 % 01/19/2019 COMPLETE BLOOD COUNT 1391616 Eos Auto 1.0 % 01/19/2019 COMPLETE BLOOD COUNT 0276189 Baso Auto 0.2 % 01/19/2019 COMPLETE BLOOD COUNT 0606320 Neutrophil Abs 6.68 10e9/L 01/19/2019 COMPLETE BLOOD COUNT 5413641 Lymphocyte Abs 3.61 10e9/L 01/19/2019 COMPLETE BLOOD COUNT 9456400 Monocyte Abs 0.68 10e9/L 01/19/2019 COMPLETE BLOOD COUNT 1988174 Eosinophil Abs 0.11 10e9/L 01/19/2019 COMPLETE BLOOD COUNT 0726742 RDW-SD 43.4 fL 01/19/2019 COMPLETE BLOOD COUNT 9825212 Basophil Abs 0.02 10e9/L 01/19/2019 COMPLETE BLOOD COUNT 8312886 WBC 7.4 10e9/L 12/18/2018 COMPLETE BLOOD COUNT 4700323 RBC 4.32 10e12/L 9 COMPLETE BLOOD COUNT 5337395 HEMOGLOBIN 14.2 g/dL 12/18/2018 COMPLETE BLOOD COUNT 9273707 HEMATOCRIT 42.0 % 12/18/2018 COMPLETE BLOOD COUNT 3303674 MCV 97.2 fL 12/18/2018 COMPLETE BLOOD COUNT 0650618 MCH 32.9 pg 12/18/2018 COMPLETE BLOOD COUNT 3324770 MCHC 33.8 g/dL 12/18/2018 COMPLETE BLOOD COUNT 4635244 PLATELET COUNT 273 10e9/L 12/18/2018 COMPLETE BLOOD COUNT 3455558 Mean Plt Volume 9.4 fL 12/18/2018 COMPLETE BLOOD COUNT 7695937 Neut Auto 57.7 % 12/18/2018 COMPLETE BLOOD COUNT 6040463 Lymph Auto 34.8 % 12/18/2018 COMPLETE BLOOD COUNT 4326102 [place] Auto 6.4 % 12/18/2018 COMPLETE BLOOD COUNT 1976211 RDW 12.6 % 12/18/2018 COMPLETE BLOOD COUNT 8841789 Eos Auto 0.8 % 12/18/2018 COMPLETE BLOOD COUNT 2968367 Baso Auto 0.3 % 12/18/2018 COMPLETE BLOOD COUNT 6697888 Neutrophil Abs 4.27 10e9/L 12/18/2018 COMPLETE BLOOD COUNT 8581152 Lymphocyte Abs 2.58 10e9/L 12/18/2018 COMPLETE BLOOD COUNT 6069735 Monocyte Abs 0.47 10e9/L 12/18/2018 COMPLETE BLOOD COUNT 8000504 Eosinophil Abs 0.06 10e9/L 12/18/2018 COMPLETE BLOOD COUNT 2924255 RDW-SD 43.8 fL 12/18/2018 COMPLETE BLOOD COUNT 1372208 Basophil Abs 0.02 10e9/L 12/18/2018 GFR CALC 3686450 GFR Non Afr Amr >60 mL/min 12/18/2018 GFR CALC 0900468 GFR Afr Amr >60 mL/min 12/18/2018 COMPREHENSIVE METABOLIC 78120 AST 33 U/L 12/18/2018 COMPREHENSIVE METABOLIC 73645 ALT 60 U/L 12/18/2018 COMPREHENSIVE METABOLIC 37449 BUN 9 mg/dL 12/18/2018 COMPREHENSIVE METABOLIC 38535 ALBUMIN 4.3 g/dL 12/18/2018 COMPREHENSIVE METABOLIC 26738 CHLORIDE 104 mmol/L 12/18/2018 COMPREHENSIVE METABOLIC 90725 Bili Total 0.3 mg/dL 12/18/2018 COMPREHENSIVE METABOLIC 18859 ALK PHOS 63 U/L 12/18/2018 COMPREHENSIVE METABOLIC 07480 SODIUM 139 mmol/L 12/18/2018 COMPREHENSIVE METABOLIC 34955 CREATININE 0.55 mg/dL 12/18/2018 COMPREHENSIVE METABOLIC 04332 CALCIUM 9.0 mg/dL 12/18/2018 COMPREHENSIVE METABOLIC 34232 POTASSIUM 3.9 mmol/L 12/18/2018 COMPREHENSIVE METABOLIC 66406 Total Protein 6.4 g/dL 12/18/2018 COMPREHENSIVE METABOLIC 23401 Glucose 83 mg/dL 12/18/2018 COMPREHENSIVE METABOLIC 94942 Bicarbonate 27 mmol/L 12/18/2018 COMPREHENSIVE METABOLIC 21480 AGAP 8 mmol/L 12/18/2018 ERYTHROCYTE SEDIMENTATION RATE 37055 Sed Rate 17 mm/hr 12/04/2018 MEAN GLUC 6595455 Calc M zach Gluc 108 mg/dL 12/03/2018 VITAMIN B 12 44366 VITAM IN B12 329 pg/mL 12/03/2018 COMPREHENSIVE METABOLIC 89457 AST 18 U/L 12/03/2018 COMPREHENSIVE METABOLIC 77580 ALT 21 U/L 12/03/2018 COMPREHENSIVE METABOLIC 11868 BUN 11 mg/dL 12/03/2018 COMPREHENSIVE METABOLIC 36293 ALBUMIN 4.5 g/dL 12/03/2018 COMPREHENSIVE METABOLIC 38685 CHLORIDE 106 mmol/L 12/03/2018 COMPREHENSIVE METABOLIC 55109 Bili Total 0.4 mg/dL 12/03/2018 COMPREHENSIVE METABOLIC 86482 ALK PHOS 49 U/L 12/03/2018 COMPREHENSIVE METABOLIC 35466 SODIUM 138 mmol/L 12/03/2018 COMPREHENSIVE METABOLIC 45978 CREATININE 0.61 mg/dL 12/03/2018 COMPREHENSIVE METABOLIC 39982 CALCIUM 9.2 mg/dL 12/03/2018 COMPREHENSIVE METABOLIC 06945 POTASSIUM 3.7 mmol/L 12/03/2018 COMPREHENSIVE METABOLIC 90795 Total Protein 6.8 g/dL 12/03/2018 COMPREHENSIVE METABOLIC 63056 Glucose 94 mg/dL 12/03/2018 COMPREHENSIVE METABOLIC 69857 Bicarbonate 25 mmol/L 12/03/2018 COMPREHENSIVE METABOLIC 06045 AGAP 7 mmol/L 12/03/2018 FREE T4 53779 T4 Free 0.96 ng/dL 12/03/2018 ASSAY TRIIODOTHYRONINE (T3) 22285 T3 Total 1.02 ng/mL 12/03/2018 GFR CALC 9195130 GFR Non Afr Amr >60 mL/min 12/03/2018 GFR CALC 2242245 GFR Afr Amr >60 mL/min 12/03/2018 GLYCOSYLATED HEMOGLOBIN TEST 42598 Hgb A1c 77823-1 5.4 % 12/03/2018 VITAMIN D TOTAL (25 HYDROXY) 31626 Vitamin D 25 [place] 11.1 ng/mL 12/03/2018 IRON 14666 Iron 106 ug/dL 12/03/2018 THYROID STIMULATING HORMONE 37095 TSH 0.978 uIU/mL 9 COMPLETE BLOOD COUNT 7913876 WBC 9.4 10e9/L 12/03/2018 COMPLETE BLOOD COUNT 6966535 RBC 4.41 10e12/L 9 COMPLETE BLOOD COUNT 3113657 HEMOGLOBIN 14.5 g/dL 12/03/2018 COMPLETE BLOOD COUNT 0521857 HEMATOCRIT 43.0 % 12/03/2018 COMPLETE BLOOD COUNT 8259752 MCV 97.5 fL 12/03/2018 COMPLETE BLOOD COUNT 2205058 MCH 32.9 pg 12/03/2018 COMPLETE BLOOD COUNT 3268039 MCHC 33.7 g/dL 12/03/2018 COMPLETE BLOOD COUNT 6444249 PLATELET COUNT 336 10e9/L 12/03/2018 COMPLETE BLOOD COUNT 9891168 Mean Plt Volume 9.1 fL 12/03/2018 COMPLETE BLOOD COUNT 4705263 Neut Auto 56.4 % 12/03/2018 COMPLETE BLOOD COUNT 9202198 Lymph Auto 35.6 % 12/03/2018 COMPLETE BLOOD COUNT 3995392 [place] Auto 6.8 % 12/03/2018 COMPLETE BLOOD COUNT 4416639 RDW 12.6 % 12/03/2018 COMPLETE BLOOD COUNT 6116338 Eos Auto 1.0 % 12/03/2018 COMPLETE BLOOD COUNT 5346622 Baso Auto 0.2 % 12/03/2018 COMPLETE BLOOD COUNT 4668521 Neutrophil Abs 5.30 10e9/L 12/03/2018 COMPLETE BLOOD COUNT 6094768 Lymphocyte Abs 3.35 10e9/L 12/03/2018 COMPLETE BLOOD COUNT 6733639 Monocyte Abs 0.64 10e9/L 12/03/2018 COMPLETE BLOOD COUNT 7152683 Eosinophil Abs 0.09 10e9/L 12/03/2018 COMPLETE BLOOD COUNT 8283120 RDW-SD 44.3 fL 12/03/2018 COMPLETE BLOOD COUNT 6948132 Basophil Abs 0.02 10e9/L 12/03/2018 FERRITIN 39130 FERRITIN 87.8 ng/mL 12/03/2018 PT 8908452 PT 23.1 Seconds 11/30/2018 PT 7324571 INR 2.0 11/30/2018 ANTI STREPTOLYSIN O TITER(ASO) 75054 ASO Titr 117 IU/mL 9 COMPLETE BLOOD COUNT 7028297 WBC 10.7 10e9/L 11/11/2018 COMPLETE BLOOD COUNT 2498997 RBC 4.42 10e12/L 9 COMPLETE BLOOD COUNT 5479864 HEMOGLOBIN 14.5 g/dL 11/11/2018 COMPLETE BLOOD COUNT 0229553 HEMATOCRIT 43.1 % 11/11/2018 COMPLETE BLOOD COUNT 5258621 MCV 97.5 fL 11/11/2018 COMPLETE BLOOD COUNT 4802481 MCH 32.8 pg 11/11/2018 COMPLETE BLOOD COUNT 4696710 MCHC 33.6 g/dL 11/11/2018 COMPLETE BLOOD COUNT 6600490 PLATELET COUNT 324 10e9/L 11/11/2018 COMPLETE BLOOD COUNT 7603979 Mean Plt Volume 9.2 fL 11/11/2018 COMPLETE BLOOD COUNT 2463469 Neut Auto 62.3 % 11/11/2018 COMPLETE BLOOD COUNT 6090577 Lymph Auto 30.8 % 11/11/2018 COMPLETE BLOOD COUNT 0026593 [place] Auto 6.1 % 11/11/2018 COMPLETE BLOOD COUNT 8903276 RDW 12.7 % 11/11/2018 COMPLETE BLOOD COUNT 6314117 Eos Auto 0.7 % 11/11/2018 COMPLETE BLOOD COUNT 7155254 Baso Auto 0.1 % 11/11/2018 COMPLETE BLOOD COUNT 0121439 Neutrophil Abs 6.67 10e9/L 11/11/2018 COMPLETE BLOOD COUNT 1972998 Lymphocyte Abs 3.30 10e9/L 11/11/2018 COMPLETE BLOOD COUNT 9435806 Monocyte Abs 0.65 10e9/L 11/11/2018 COMPLETE BLOOD COUNT 2307727 Eosinophil Abs 0.07 10e9/L 11/11/2018 COMPLETE BLOOD COUNT 4354227 RDW-SD 44.3 fL 11/11/2018 COMPLETE BLOOD COUNT 7849819 Basophil Abs 0.01 10e9/L 11/11/2018 PT 5032948 PT 23.4 Seconds 10/27/2018 PT 2265633 INR 2.0 10/27/2018 COMPLETE BLOOD COUNT 1595430 WBC 8.1 10e9/L 09/25/2018 COMPLETE BLOOD COUNT 7995789 RBC 4.37 10e12/L 9 COMPLETE BLOOD COUNT 0170595 HEMOGLOBIN 14.5 g/dL 09/25/2018 COMPLETE BLOOD COUNT 3973152 HEMATOCRIT 42.1 % 09/25/2018 COMPLETE BLOOD COUNT 3543316 MCV 96.3 fL 09/25/2018 COMPLETE BLOOD COUNT 9400346 MCH 33.2 pg 09/25/2018 COMPLETE BLOOD COUNT 6093209 MCHC 34.4 g/dL 09/25/2018 COMPLETE BLOOD COUNT 2366846 PLATELET COUNT 313 10e9/L 09/25/2018 COMPLETE BLOOD COUNT 1170025 Mean Plt Volume 9.2 fL 09/25/2018 COMPLETE BLOOD COUNT 8814684 Neut Auto 57.4 % 09/25/2018 COMPLETE BLOOD COUNT 8239263 Lymph Auto 35.0 % 09/25/2018 COMPLETE BLOOD COUNT 9103349 [place] Auto 6.3 % 09/25/2018 COMPLETE BLOOD COUNT 0889502 RDW 12.6 % 09/25/2018 COMPLETE BLOOD COUNT 6070384 Eos Auto 1.1 % 09/25/2018 COMPLETE BLOOD COUNT 7592801 Baso Auto 0.2 % 09/25/2018 COMPLETE BLOOD COUNT 6243321 Neutrophil Abs 4.65 10e9/L 09/25/2018 COMPLETE BLOOD COUNT 1172556 Lymphocyte Abs 2.84 10e9/L 09/25/2018 COMPLETE BLOOD COUNT 2527814 Monocyte Abs 0.51 10e9/L 09/25/2018 COMPLETE BLOOD COUNT 3448018 Eosinophil Abs 0.09 10e9/L 09/25/2018 COMPLETE BLOOD COUNT 0443635 RDW-SD 43.0 fL 09/25/2018 COMPLETE BLOOD COUNT 2856220 Basophil Abs 0.02 10e9/L 09/25/2018 COMPREHENSIVE METABOLIC 54141 AST 15 U/L 09/25/2018 COMPREHENSIVE METABOLIC 02922 ALT 20 U/L 09/25/2018 COMPREHENSIVE METABOLIC 21989 BUN 9 mg/dL 09/25/2018 COMPREHENSIVE METABOLIC 16686 ALBUMIN 4.3 g/dL 09/25/2018 COMPREHENSIVE METABOLIC 77605 CHLORIDE 107 mmol/L 09/25/2018 COMPREHENSIVE METABOLIC 74105 Bili Total 0.4 mg/dL 09/25/2018 COMPREHENSIVE METABOLIC 64109 ALK PHOS 51 U/L 09/25/2018 COMPREHENSIVE METABOLIC 11156 SODIUM 139 mmol/L 09/25/2018 COMPREHENSIVE METABOLIC 60935 CREATININE 0.61 mg/dL 09/25/2018 COMPREHENSIVE METABOLIC 80615 CALCIUM 9.1 mg/dL 09/25/2018 COMPREHENSIVE METABOLIC 95995 POTASSIUM 3.7 mmol/L 09/25/2018 COMPREHENSIVE METABOLIC 52655 Total Protein 6.3 g/dL 09/25/2018 COMPREHENSIVE METABOLIC 28984 Glucose 92 mg/dL 09/25/2018 COMPREHENSIVE METABOLIC 88395 Bicarbonate 24 mmol/L 09/25/2018 COMPREHENSIVE METABOLIC 71141 AGAP 8 mmol/L 09/25/2018 PT [id number] PT 25.0 Seconds 09/25/2018 PT [id number] INR 2.2 09/25/2018 GFR CALC 7022749 GFR Non Afr Amr >60 mL/min 09/25/2018 GFR CALC [id number] GFR Afr Amr >60 mL/min 09/25/2018 PT 6247430 PT 25.7 Seconds 05/12/2018 PT 8312570 INR 2.3 05/12/2018 PT [id number] PT TNP:Improper Specimen 04/30/2018 PT [id number] INR TNP:Improper Specimen 04/30/2018 PT 4353816 PT 26.3 Seconds 02/05/2018 PT [id number] INR 2.4 02/05/2018 ANTI STREPTOLYSIN O TITER(ASO) 34483 ASO Titr 118 IU/mL 8 VITAMIN B 12 00147 VITAM IN B12 302 pg/mL 12/02/2017 VITAMIN D TOTAL (25 HYDROXY) 19931 Vitamin D 25 OH 27.0 ng/mL 12/02/2017 PT 6437317 PT 17.3 Seconds 12/01/2017 PT 4110038 INR 1.4 12/01/2017 ANTI STREPTOLYSIN O TITER(ASO) 72775 ASO Titr 127 IU/mL 8 ANTI STREPTOLYSIN O TITER(ASO) 24141 ASO Titr 130 IU/mL 8 ANTINUCLEAR ANTIBODY SCREEN 69251 MAGALIE Ab Scr <1:80 10/02/2017 RA FACTOR 95787 RA FACTOR <20 IU/mL 10/02/2017 RA FACTOR 53917 RA Facto r Intp Negative 10/02/2017 VITAMIN D TOTAL (25 HYDROXY) 65119 Vitamin D 25 OH 18 ng/mL 8 IRON 40285 Iron 70 ug/dL 10/01/2017 VITAMIN B 12 76630 VITAM IN B12 377 pg/mL 10/01/2017 FREE T4 20798 T4 Free 1.31 ng/dL 10/01/2017 URIC ACID 99513 URIC ACID 3.9 mg/dL 10/01/2017 FERRITIN 67038 FERRITIN 68.0 ng/mL 10/01/2017 THYROID STIMULATING HORMONE 37142 TSH 1.401 uIU/mL 8 GLYCOSYLATED HEMOGLOBIN TEST 18324 Hgb A1c 94185-8 5.4 % 10/01/2017 FOLIC ACID 06705 Folate >24.0 ng/mL 10/01/2017 ASSAY TRIIODOTHYRONINE (T3) 66150 T3 Total 1.0 ng/mL 10/01/2017 ERYTHROCYTE SEDIMENTATION RATE 83106 Sed Rate 5 mm/hr 10/01/2017 MEAN GLUC 4028819 Calc M zach Gluc 108 mg/dL 10/01/2017 PT 5724430 PT 18.6 Seconds 08/07/2017 PT [id number] INR 1.5 08/07/2017 COMPREHENSIVE METABOLIC 08749 AST 21 U/L 08/07/2017 COMPREHENSIVE METABOLIC 07605 ALT 37 U/L 08/07/2017 COMPREHENSIVE METABOLIC 90075 BUN 14 mg/dL 08/07/2017 COMPREHENSIVE METABOLIC 51477 ALBUMIN 4.5 g/dL 08/07/2017 COMPREHENSIVE METABOLIC 19753 CHLORIDE 104 mmol/L 08/07/2017 COMPREHENSIVE METABOLIC 25543 Bili Total 0.3 mg/dL 08/07/2017 COMPREHENSIVE METABOLIC 30043 ALK PHOS 55 U/L 08/07/2017 COMPREHENSIVE METABOLIC 56578 SODIUM 139 mmol/L 08/07/2017 COMPREHENSIVE METABOLIC 25047 CREATININE 0.77 mg/dL 08/07/2017 COMPREHENSIVE METABOLIC 04263 CALCIUM 9.2 mg/dL 08/07/2017 COMPREHENSIVE METABOLIC 78086 POTASSIUM 3.7 mmol/L 08/07/2017 COMPREHENSIVE METABOLIC 26226 Total Protein 6.5 g/dL 08/07/2017 COMPREHENSIVE METABOLIC 35762 Glucose 101 mg/dL 08/07/2017 COMPREHENSIVE METABOLIC 31980 Bicarbonate 25 mmol/L 08/07/2017 COMPREHENSIVE METABOLIC 68395 AGAP 10 mmol/L 08/07/2017 COMPLETE BLOOD COUNT 2100548 WBC 9.4 10e9/L 08/07/2017 COMPLETE BLOOD COUNT 4056215 RBC 4.38 10e12/L 8 COMPLETE BLOOD COUNT 0841214 HEMOGLOBIN 14.5 g/dL 08/07/2017 COMPLETE BLOOD COUNT 3531635 HEMATOCRIT 42.7 % 08/07/2017 COMPLETE BLOOD COUNT 5084598 MCV 97.5 fL 08/07/2017 COMPLETE BLOOD COUNT 2875737 MCH 33.1 pg 08/07/2017 COMPLETE BLOOD COUNT 9243661 MCHC 34.0 g/dL 08/07/2017 COMPLETE BLOOD COUNT 0931445 PLATELET COUNT 313 10e9/L 08/07/2017 COMPLETE BLOOD COUNT 2387209 Mean Plt Volume 8.6 fL 08/07/2017 COMPLETE BLOOD COUNT 5976309 Neut Auto 51.6 % 08/07/2017 COMPLETE BLOOD COUNT 6484285 Lymph Auto 40.0 % 08/07/2017 COMPLETE BLOOD COUNT 8476859 [place] Auto 6.8 % 08/07/2017 COMPLETE BLOOD COUNT 4068593 RDW 12.9 % 08/07/2017 COMPLETE BLOOD COUNT 6135408 Eos Auto 1.4 % 08/07/2017 COMPLETE BLOOD COUNT 1584629 Baso Auto 0.2 % 08/07/2017 COMPLETE BLOOD COUNT 4278129 Neutrophil Abs 4.85 10e9/L 08/07/2017 COMPLETE BLOOD COUNT 4564637 Lymphocyte Abs 3.76 10e9/L 08/07/2017 COMPLETE BLOOD COUNT 5681399 Monocyte Abs 0.64 10e9/L 08/07/2017 COMPLETE BLOOD COUNT 3924434 Eosinophil Abs 0.13 10e9/L 08/07/2017 COMPLETE BLOOD COUNT 3883204 RDW-SD 45.1 fL 08/07/2017 COMPLETE BLOOD COUNT 0776178 Basophil Abs 0.02 10e9/L 08/07/2017 GFR CALC 6746215 GFR Non Afr Amr >60 mL/min 08/07/2017 GFR CALC GFR Afr Amr >60 mL/min 08/07/2017 COMPLETE BLOOD COUNT 1349201 WBC 9.2 10e9/L 07/15/2017 COMPLETE BLOOD COUNT 0167030 RBC 4.70 10e12/L 8 COMPLETE BLOOD COUNT 6205922 HEMOGLOBIN 15.4 g/dL 07/15/2017 COMPLETE BLOOD COUNT 2480123 HEMATOCRIT 46.2 % 07/15/2017 COMPLETE BLOOD COUNT 1664922 MCV 98.3 fL 07/15/2017 COMPLETE BLOOD COUNT 0972963 MCH 32.8 pg 07/15/2017 COMPLETE BLOOD COUNT 9152201 MCHC 33.3 g/dL 07/15/2017 COMPLETE BLOOD COUNT 0993954 PLATELET COUNT 348 10e9/L 07/15/2017 COMPLETE BLOOD COUNT 4086660 Mean Plt Volume 8.9 fL 07/15/2017 COMPLETE BLOOD COUNT 9145354 Neut Auto 60.6 % 07/15/2017 COMPLETE BLOOD COUNT 8500774 Lymph Auto 30.9 % 07/15/2017 COMPLETE BLOOD COUNT 4722718 [place] Auto 7.1 % 07/15/2017 COMPLETE BLOOD COUNT 2614239 RDW 13.1 % 07/15/2017 COMPLETE BLOOD COUNT 7849647 Eos Auto 1.2 % 07/15/2017 COMPLETE BLOOD COUNT 7476539 Baso Auto 0.2 % 07/15/2017 COMPLETE BLOOD COUNT 3924868 Neutrophil Abs 5.58 10e9/L 07/15/2017 COMPLETE BLOOD COUNT 0487688 Lymphocyte Abs 2.84 10e9/L 07/15/2017 COMPLETE BLOOD COUNT 6942412 Monocyte Abs 0.65 10e9/L 07/15/2017 COMPLETE BLOOD COUNT 1451017 Eosinophil Abs 0.11 10e9/L 07/15/2017 COMPLETE BLOOD COUNT 2665775 RDW-SD 46.1 fL 07/15/2017 COMPLETE BLOOD COUNT 4406077 Basophil Abs 0.02 10e9/L 07/15/2017 GFR CALC 4479362 GFR Non Afr Amr >60 mL/min 07/15/2017 GFR CALC 1351768 GFR Afr Amr >60 mL/min 07/15/2017 COMPREHENSIVE METABOLIC 55529 AST 16 U/L 07/15/2017 COMPREHENSIVE METABOLIC 10880 ALT 20 U/L 07/15/2017 COMPREHENSIVE METABOLIC 47452 BUN 13 mg/dL 07/15/2017 COMPREHENSIVE METABOLIC 53963 ALBUMIN 4.6 g/dL 07/15/2017 COMPREHENSIVE METABOLIC 19211 CHLORIDE 106 mmol/L 07/15/2017 COMPREHENSIVE METABOLIC 58067 Bili Total 0.3 mg/dL 07/15/2017 COMPREHENSIVE METABOLIC 49587 ALK PHOS 50 U/L 07/15/2017 COMPREHENSIVE METABOLIC 40173 SODIUM 137 mmol/L 07/15/2017 COMPREHENSIVE METABOLIC 60769 CREATININE 0.62 mg/dL 07/15/2017 COMPREHENSIVE METABOLIC 90726 CALCIUM 9.2 mg/dL 07/15/2017 COMPREHENSIVE METABOLIC 79348 POTASSIUM 3.8 mmol/L 07/15/2017 COMPREHENSIVE METABOLIC 15106 Total Protein 6.7 g/dL 07/15/2017 COMPREHENSIVE METABOLIC 20497 Glucose 83 mg/dL 07/15/2017 COMPREHENSIVE METABOLIC 98143 Bicarbonate 30 mmol/L 07/15/2017 COMPREHENSIVE METABOLIC 32863 AGAP 1 mmol/L 07/15/2017 THYROID STIMULATING HORMONE 84276 TSH 2.111 uIU/mL 201 7 COMPREHENSIVE METABOLIC 80322 AST 33 U/L 08/27/2016 COMPREHENSIVE METABOLIC 68924 ALT 55 U/L 08/27/2016 COMPREHENSIVE METABOLIC 57895 BUN 11 mg/dL 08/27/2016 COMPREHENSIVE METABOLIC 55408 ALBUMIN 4.6 g/dL 08/27/2016 COMPREHENSIVE METABOLIC 89089 CHLORIDE 103 mmol/L 08/27/2016 COMPREHENSIVE METABOLIC 10501 Bili Total 0.3 mg/dL 08/27/2016 COMPREHENSIVE METABOLIC 87215 ALK PHOS 60 U/L 08/27/2016 COMPREHENSIVE METABOLIC 21264 SODIUM 140 mmol/L 08/27/2016 COMPREHENSIVE METABOLIC 60481 CREATININE 0.69 mg/dL 08/27/2016 COMPREHENSIVE METABOLIC 65374 CALCIUM 9.3 mg/dL 08/27/2016 COMPREHENSIVE METABOLIC 43737 POTASSIUM 3.7 mmol/L 08/27/2016 COMPREHENSIVE METABOLIC 54389 Total Protein 6.8 g/dL 08/27/2016 COMPREHENSIVE METABOLIC 73752 Glucose 79 mg/dL 08/27/2016 COMPREHENSIVE METABOLIC 45374 Bicarbonate 25 mmol/L 08/27/2016 COMPREHENSIVE METABOLIC 77411 AGAP 12 mmol/L 08/27/2016 COMPLETE BLOOD COUNT 5783742 WBC 9.4 10e9/L 08/27/2016 COMPLETE BLOOD COUNT 1174945 RBC 4.35 10e12/L 7 COMPLETE BLOOD COUNT 9879172 HEMOGLOBIN 14.2 g/dL 08/27/2016 COMPLETE BLOOD COUNT 4898783 HEMATOCRIT 41.5 % 08/27/2016 COMPLETE BLOOD COUNT 7068874 MCV 95.4 fL 08/27/2016 COMPLETE BLOOD COUNT 8794938 MCH 32.6 pg 08/27/2016 COMPLETE BLOOD COUNT 4499443 MCHC 34.2 g/dL 08/27/2016 COMPLETE BLOOD COUNT 2310448 PLATELET COUNT 289 10e9/L 08/27/2016 COMPLETE BLOOD COUNT 5450780 Mean Plt Volume 9.8 fL 08/27/2016 COMPLETE BLOOD COUNT 6655560 Neut Auto 47.7 % 08/27/2016 COMPLETE BLOOD COUNT 1396370 Lymph Auto 44.2 % 08/27/2016 COMPLETE BLOOD COUNT 4534734 [place] Auto 6.6 % 08/27/2016 COMPLETE BLOOD COUNT 6339791 RDW 12.9 % 08/27/2016 COMPLETE BLOOD COUNT 7644754 Eos Auto 1.4 % 08/27/2016 COMPLETE BLOOD COUNT 0124680 Baso Auto 0.1 % 08/27/2016 COMPLETE BLOOD COUNT 3882874 Neutrophil Abs 4.48 10e9/L 08/27/2016 COMPLETE BLOOD COUNT 3448526 Lymphocyte Abs 4.15 10e9/L 08/27/2016 COMPLETE BLOOD COUNT 4999611 Monocyte Abs 0.62 10e9/L 08/27/2016 COMPLETE BLOOD COUNT 9181316 Eosinophil Abs 0.13 10e9/L 08/27/2016 COMPLETE BLOOD COUNT 5235445 RDW-SD 43.9 fL 08/27/2016 COMPLETE BLOOD COUNT 1306413 Basophil Abs 0.01 10e9/L 08/27/2016 PT 7075416 PT 15.0 Seconds 08/27/2016 PT 6241777 INR 1.2 08/27/2016 GFR CALC 6504575 GFR Afr Amr >60 mL/min 08/27/2016 GFR CALC 5071171 GFR Non Afr Amr >60 mL/min 08/27/2016 GFR CALC 0816131 GFR Non Afr Amr >60 mL/min 05/24/2016 GFR CALC 1254188 GFR Afr Amr >60 mL/min 05/24/2016 COMPREHENSIVE METABOLIC 67881 AST 19 U/L 05/24/2016 COMPREHENSIVE METABOLIC 49922 ALT 23 U/L 05/24/2016 COMPREHENSIVE METABOLIC 78093 BUN 12 mg/dL 05/24/2016 COMPREHENSIVE METABOLIC 57283 ALBUMIN 4.1 g/dL 05/24/2016 COMPREHENSIVE METABOLIC 88153 CHLORIDE 105 mmol/L 05/24/2016 COMPREHENSIVE METABOLIC 54346 Bili Total 0.4 mg/dL 05/24/2016 COMPREHENSIVE METABOLIC 37557 ALK PHOS 52 U/L 05/24/2016 COMPREHENSIVE METABOLIC 78093 SODIUM 136 mmol/L 05/24/2016 COMPREHENSIVE METABOLIC 79056 CREATININE 0.61 mg/dL 05/24/2016 COMPREHENSIVE METABOLIC 24150 CALCIUM 8.8 mg/dL 05/24/2016 COMPREHENSIVE METABOLIC 91251 POTASSIUM 3.8 mmol/L 05/24/2016 COMPREHENSIVE METABOLIC 43275 Total Protein 6.2 g/dL 05/24/2016 COMPREHENSIVE METABOLIC 20505 Glucose 95 mg/dL 05/24/2016 COMPREHENSIVE METABOLIC 84679 Bicarbonate 19 mmol/L 05/24/2016 COMPREHENSIVE METABOLIC 56210 AGAP 12 mmol/L 05/24/2016 PT 9795134 PT 25.7 Seconds 05/24/2016 PT 4873562 INR 2.4 05/24/2016 PT 1637227 PT 22.2 Seconds 04/11/2016 PT 9615487 INR 2.0 04/11/2016 PT 7653248 PT 16.5 Seconds 03/13/2016 PT 1283313 INR 1.4 03/13/2016 THYROID STIMULATING HORMONE 72145 TSH 1.151 uIU/mL 6 COMPLETE BLOOD COUNT 8678007 WBC 10.0 10e9/L 03/12/2016 COMPLETE BLOOD COUNT 0063187 RBC 4.08 10e12/L 6 COMPLETE BLOOD COUNT 1927393 HEMOGLOBIN 13.5 g/dL 03/12/2016 COMPLETE BLOOD COUNT 5654864 HEMATOCRIT 38.8 % 03/12/2016 COMPLETE BLOOD COUNT 4885541 MCV 95.1 fL 03/12/2016 COMPLETE BLOOD COUNT 8050850 MCH 33.1 pg 03/12/2016 COMPLETE BLOOD COUNT 7749398 MCHC 34.8 g/dL 03/12/2016 COMPLETE BLOOD COUNT 6998679 PLATELET COUNT 282 10e9/L 03/12/2016 COMPLETE BLOOD COUNT 2403405 Mean Plt Volume 9.6 fL 03/12/2016 COMPLETE BLOOD COUNT 4978097 Neut Auto 53.5 % 03/12/2016 COMPLETE BLOOD COUNT 0106914 Lymph Auto 39.0 % 03/12/2016 COMPLETE BLOOD COUNT 2291046 [place] Auto 5.9 % 03/12/2016 COMPLETE BLOOD COUNT 2850424 RDW 12.6 % 03/12/2016 COMPLETE BLOOD COUNT 9336127 [place]os Auto 1.4 % 03/12/2016 COMPLETE BLOOD COUNT 9156044 Baso Auto 0.2 % 03/12/2016 COMPLETE BLOOD COUNT 7735414 Neutrophil Abs 5.35 10e9/L 03/12/2016 COMPLETE BLOOD COUNT 8820157 Lymphocyte Abs 3.90 10e9/L 03/12/2016 COMPLETE BLOOD COUNT 1258954 Monocyte Abs 0.59 10e9/L 03/12/2016 COMPLETE BLOOD COUNT 6674823 Eosinophil Abs 0.14 10e9/L 03/12/2016 COMPLETE BLOOD COUNT 3218394 RDW-SD 42.7 fL 03/12/2016 COMPLETE BLOOD COUNT 4858970 Basophil Abs 0.02 10e9/L 03/12/2016 COMPREHENSIVE METABOLIC 21287 AST 13 U/L 03/12/2016 COMPREHENSIVE METABOLIC 27081 ALT 11 U/L 03/12/2016 COMPREHENSIVE METABOLIC 68719 BUN 11 mg/dL 03/12/2016 COMPREHENSIVE METABOLIC 46071 ALBUMIN 4.1 g/dL 03/12/2016 COMPREHENSIVE METABOLIC 97627 CHLORIDE 107 mmol/L 03/12/2016 COMPREHENSIVE METABOLIC 91109 Bili Total 0.3 mg/dL 03/12/2016 COMPREHENSIVE METABOLIC 44708 ALK PHOS 41 U/L 03/12/2016 COMPREHENSIVE METABOLIC 73266 SODIUM 137 mmol/L 03/12/2016 COMPREHENSIVE METABOLIC 35098 CREATININE 0.62 mg/dL 03/12/2016 COMPREHENSIVE METABOLIC 56753 CALCIUM 9.0 mg/dL 03/12/2016 COMPREHENSIVE METABOLIC 10602 POTASSIUM 3.8 mmol/L 03/12/2016 COMPREHENSIVE METABOLIC 06721 Total Protein 6.1 g/dL 03/12/2016 COMPREHENSIVE METABOLIC 68829 Glucose 95 mg/dL 03/12/2016 COMPREHENSIVE METABOLIC 94674 Bicarbonate 23 mmol/L 03/12/2016 COMPREHENSIVE METABOLIC 50413 AGAP 7 mmol/L 03/12/2016 GFR CALC 8185041 GFR Non Afr Amr >60 mL/min 03/12/2016 GFR CALC 6229639 GFR Afr Amr >60 mL/min 03/12/2016 PT 8713158 PT 14.4 Seconds 02/12/2016 PT 0670204 INR 1.2 02/12/2016 PT 4079756 PT 26.1 Seconds 02/01/2016 PT 1886543 INR 2.4 02/01/2016 EB VIRUS VCA G/M + EBNA + [place] [address]|8 6665 x 2|04998 EBV VCA Ab IgG 3.70 11/13/2015 [place] VIR[place] VCA G/M + [place] + [place] [address]|8 6665 x 2|00296 EBV VCA Ab IgM 0.47 11/13/2015 EB VIRUS VCA G/M + [place] + [place] [address]|8 6665 x 2|48922 EBV Nuclear Ab 2.24 11/13/2015 EB V[place] VCA G/M + [place] + [place] [address]|8 6665 x 2|56778 EBV Early Ab 1.37 11/13/2015 PT 1613496 PT 18.9 Seconds 11/10/2015 PT 9313998 INR 1.6 11/10/2015 PT 2248623 PT 16.8 Seconds 09/29/2015 PT 2881333 INR 1.4 09/29/2015 COMPLETE BLOOD COUNT 1544814 WBC 9.6 10e9/L 09/29/2015 COMPLETE BLOOD COUNT 3917482 RBC 4.51 10e12/L 6 COMPLETE BLOOD COUNT 5027328 HEMOGLOBIN 14.8 g/dL 09/29/2015 COMPLETE BLOOD COUNT 3403521 HEMATOCRIT 43.3 % 09/29/2015 COMPLETE BLOOD COUNT 0979695 MCV 96.0 fL 09/29/2015 COMPLETE BLOOD COUNT 1037470 MCH 32.8 pg 09/29/2015 COMPLETE BLOOD COUNT 1958809 MCHC 34.2 g/dL 09/29/2015 COMPLETE BLOOD COUNT 0776251 PLATELET COUNT 310 10e9/L 09/29/2015 COMPLETE BLOOD COUNT 0891505 Mean Plt Volume 9.7 fL 09/29/2015 COMPLETE BLOOD COUNT 4657788 Neutrophil 60.3 % 09/29/2015 COMPLETE BLOOD COUNT 6589654 Lymph Auto % 32.4 % 09/29/2015 COMPLETE BLOOD COUNT 5963075 Monocyte Auto % 6.5 % 09/29/2015 COMPLETE BLOOD COUNT 7390230 RDW 12.8 % 09/29/2015 COMPLETE BLOOD COUNT 9017431 Eosinophil 0.7 % 09/29/2015 COMPLETE BLOOD COUNT 7931054 Basophil 0.1 % 09/29/2015 COMPLETE BLOOD COUNT 9273325 Neutrophil Abs 5.79 10e9/L 09/29/2015 COMPLETE BLOOD COUNT 1057969 Lymphoctye Abs 3.11 10e9/L 09/29/2015 COMPLETE BLOOD COUNT 1128132 Monocyte Abs 0.62 10e9/L 09/29/2015 COMPLETE BLOOD COUNT 8114617 Eosinophil Abs 0.07 10e9/L 09/29/2015 COMPLETE BLOOD COUNT 2159854 RDW-SD 43.6 fL 09/29/2015 COMPLETE BLOOD COUNT 7178835 Basophil Abs 0.01 10e9/L 09/29/2015 IRON 99501 Iron 86 ug/dL 09/29/2015 COMPLETE BLOOD COUNT 8694944 WBC 9.6 10e9/L 09/29/2015 COMPLETE BLOOD COUNT 2538238 RBC 4.51 10e12/L 6 COMPLETE BLOOD COUNT 6293220 HEMOGLOBIN 14.8 g/dL 09/29/2015 COMPLETE BLOOD COUNT 4886217 HEMATOCRIT 43.3 % 09/29/2015 COMPLETE BLOOD COUNT 4824248 MCV 96.0 fL 09/29/2015 COMPLETE BLOOD COUNT 4035060 MCH 32.8 pg 09/29/2015 COMPLETE BLOOD COUNT 5696133 MCHC 34.2 g/dL 09/29/2015 COMPLETE BLOOD COUNT 0081281 PLATELET COUNT 310 10e9/L 09/29/2015 COMPLETE BLOOD COUNT 5750074 Mean Plt Volume 9.7 fL 09/29/2015 COMPLETE BLOOD COUNT 7206732 Neutrophil 60.3 % 09/29/2015 COMPLETE BLOOD COUNT 1733868 Lymph Auto % 32.4 % 09/29/2015 COMPLETE BLOOD COUNT 9228819 Monocyte Auto % 6.5 % 09/29/2015 COMPLETE BLOOD COUNT 4982404 RDW 12.8 % 09/29/2015 COMPLETE BLOOD COUNT 6801333 Eosinophil 0.7 % 09/29/2015 COMPLETE BLOOD COUNT 6051007 Basophil 0.1 % 09/29/2015 COMPLETE BLOOD COUNT 3999571 Neutrophil Abs 5.79 10e9/L 09/29/2015 COMPLETE BLOOD COUNT 7332376 Lymphoctye Abs 3.11 10e9/L 09/29/2015 COMPLETE BLOOD COUNT 6037766 Monocyte Abs 0.62 10e9/L 09/29/2015 COMPLETE BLOOD COUNT 2616394 Eosinophil Abs 0.07 10e9/L 09/29/2015 COMPLETE BLOOD COUNT 7872615 RDW-SD 43.6 fL 09/29/2015 COMPLETE BLOOD COUNT 6267277 Basophil Abs 0.01 10e9/L 09/29/2015 PT 2079892 PT 16.8 Seconds 09/29/2015 PT 7419072 INR 1.4 09/29/2015 IRON 46560 Iron 86 ug/dL 09/29/2015 PT PA IVANNA 78012 PRO T PAULIE 19.4 SEC 07/27/2015 PT [facility] 65365 INR M CMC 1.7 07/27/2015 PT [facility] 88052 PRO T PAULIE 21.4 SEC 06/21/2015 PT [facility] 26956 INR M CMC 1.9 06/21/2015 PT [facility] 70000 PRO T PAULIE 24.5 SEC 05/24/2015 PT [facility] 58883 INR M CMC 2.3 05/24/2015 Review of [...] 03/16/2018 Musculoskeletal No myalgias 03/16/2018 Neurologic headache 09/2 09/2017 Gastrointestinal abdominal pain 02/16/2018 Gastrointestinal gas and [...] Date URINE CULTURE/ COLON Y COUNT CPT-4: 58671 02/08/2019 ROUTINE VENIPUNCTURE CPT-4: 14187 01/19/2019 PROTHROMBIN TIME CPT-4: 14132 01/19/2019 COMPLETE CBC W/AUTO DIFF WBC CPT-4: 37536 01/19/2019 ANTISTREPTOLYSIN O T ITER CPT-4: 34867 01/19/2019 HEPATIC FUNCTION PANEL CPT-4: 65275 01/19/2019 MYCOPLASMA ANTIBODY, IFA CPT-4: 64114T3 01/19/2019 RESPIRATORY CULTURE & STAIN CPT-4: 24905 01/19/2019 STREP A ASSAY W/OPTIC CPT-4: 39335 01/19/2019 THER/PROPH/DIAG INJ SC/IM CPT-4: 41501 01/04/2019 TRIAMCINOLONE ACET I [place] NOS CPT-4: J3301 01/04/2019 ROUTINE VENIPUNCTURE CPT-4: 28667 12/18/2018 COMPLETE CBC W/AUTO DIFF WBC CPT-4: 41945 12/18/2018 COMPREHEN METABOLIC PANEL CPT-4: 92445 12/18/2018 HYDRATION IV INFUSIO N INIT CPT-4: 57603 12/16/2018 STREP A ASSAY W/OPTIC CPT-4: 78825 12/02/2018 ROUTINE VENIPUNCTURE CPT-4: 32020 11/30/2018 PT CPT-4: 3420788 11/30/2018 CEFTRIAXONE SODIUM I NJECTION CPT-4: J0696 11/30/2018 THER/PROPH/DIAG INJ SC/IM CPT-4: 02409 11/30/2018 URINE CULTURE/ COLON Y COUNT CPT-4: 33350 11/20/2018 URINALYSIS NONAUTO W /O SCOPE CPT-4: 27769 11/20/2018 CEFTRIAXONE SODIUM I NJECTION CPT-4: J0696 11/12/2018 THER/PROPH/DIAG INJ SC/IM CPT-4: 16829 11/12/2018 STREP A ASSAY W/OPTIC CPT-4: 50854 11/11/2018 CEFTRIAXONE SODIUM I NJECTION CPT-4: J0696 11/11/2018 THER/PROPH/DIAG INJ SC/IM CPT-4: 57366 11/11/2018 ROUTINE VENIPUNCTURE CPT-4: 93414 11/11/2018 ANTISTREPTOLYSIN O T ITER CPT-4: 37616 11/11/2018 COMPLETE CBC W/AUTO DIFF WBC CPT-4: 34689 11/11/2018 ROUTINE VENIPUNCTURE CPT-4: 57769 10/27/2018 PT CPT-4: 0176956 10/27/2018 THER/PROPH/DIAG INJ SC/IM CPT-4: 33711 10/09/2018 TRIAMCINOLONE ACET I [place] NOS CPT-4: J3301 10/09/2018 CEFTRIAXONE SODIUM I NJECTION CPT-4: J0696 10/08/2018 THER/PROPH/DIAG INJ SC/IM CPT-4: 72800 10/08/2018 CEFTRIAXONE SODIUM I NJECTION CPT-4: J0696 10/07/2018 THER/PROPH/DIAG INJ SC/IM CPT-4: 54111 10/07/2018 ROUTINE VENIPUNCTURE CPT-4: 53007 09/25/2018 COMPREHEN METABOLIC PANEL CPT-4: 58415 09/25/2018 COMPLETE CBC W/AUTO DIFF WBC CPT-4: 88802 09/25/2018 PT CPT-4: 5204485 09/25/2018 URINE CULTURE/ COLON Y COUNT CPT-4: 38462 09/10/2018 URINALYSIS NONAUTO W /O SCOPE CPT-4: 66772 09/10/2018 CEFTRIAXONE SODIUM I NJECTION CPT-4: J0696 09/08/2018 THER/PROPH/DIAG INJ SC/IM CPT-4: 63120 09/08/2018 ROUTINE VENIPUNCTURE CPT-4: 23605 08/14/2018 PT CPT-4: 1989555 08/14/2018 CEFTRIAXONE SODIUM I NJECTION CPT-4: J0696 07/02/2018 THER/PROPH/DIAG INJ SC/IM CPT-4: 06639 07/02/2018 THER/PROPH/DIAG INJ SC/IM CPT-4: 38089 07/02/2018 TRIAMCINOLONE ACET I [place] NOS CPT-4: J3301 07/02/2018 ROUTINE VENIPUNCTURE CPT-4: 14936 06/22/2018 ANTISTREPTOLYSIN O T ITER CPT-4: 02915 06/22/2018 ROUTINE VENIPUNCTURE CPT-4: 66339 06/17/2018 PROTHROMBIN TIME CPT-4: 34415 06/17/2018 URINE CULTURE/ COLON Y COUNT CPT-4: 17144 06/17/2018 CEFTRIAXONE SODIUM I NJECTION CPT-4: J0696 05/12/2018 THER/PROPH/DIAG INJ SC/IM CPT-4: 77977 05/12/2018 PROTHROMBIN TIME CPT-4: 44216 05/11/2018 CEFTRIAXONE SODIUM I NJECTION CPT-4: J0696 05/11/2018 THER/PROPH/DIAG INJ SC/IM CPT-4: 55755 05/11/2018 ROUTINE VENIPUNCTURE CPT-4: 25906 04/30/2018 PROTHROMBIN TIME CPT-4: 31700 04/30/2018 THER/PROPH/DIAG INJ SC/IM CPT-4: 79954 04/02/2018 TRIAMCINOLONE ACET I [place] NOS CPT-4: J3301 04/02/2018 IIV4 VACCINE 3 YRS+ IM AND UP CPT-4: 39180 03/24/2018 IMMUNIZATION ADMIN CPT- 4: 32994 03/24/2018 ROUTINE VENIPUNCTURE CPT-4: 78286 03/24/2018 PT CPT-4: 4527461 03/24/2018 PROTHROMBIN TIME CPT-4: 76135 02/24/2018 ROUTINE VENIPUNCTURE CPT-4: 62209 02/24/2018 ROUTINE VENIPUNCTURE CPT-4: 37392 02/05/2018 PROTHROMBIN TIME CPT-4: 12824 02/05/2018 URINE CULTURE/ COLON Y COUNT CPT-4: 96379 02/05/2018 CEFTRIAXONE SODIUM I NJECTION CPT-4: J0696 01/29/2018 THER/PROPH/DIAG INJ SC/IM CPT-4: 65626 01/29/2018 CEFTRIAXONE SODIUM I NJECTION CPT-4: J0696 01/28/2018 THER/PROPH/DIAG INJ SC/IM CPT-4: 89501 01/28/2018 URINALYSIS NONAUTO W /O SCOPE CPT-4: 38642 01/26/2018 URINE CULTURE/ COLON Y COUNT CPT-4: 77387 01/26/2018 ROUTINE VENIPUNCTURE CPT-4: 45802 01/01/2018 PROTHROMBIN TIME CPT-4: 17751 01/01/2018 THER/PROPH/DIAG INJ SC/IM CPT-4: 78996 12/25/2017 TRIAMCINOLONE ACET I NJ NOS CPT-4: J3301 12/25/2017 DEXAMETHASONE SODIUM PHOS CPT-4: J1100 12/25/2017 STREP A ASSAY W/OPTIC CPT-4: 62077 12/11/2017 CEFTRIAXONE SODIUM I NJECTION CPT-4: J0696 12/11/2017 THER/PROPH/DIAG INJ SC/IM CPT-4: 89290 12/11/2017 ROUTINE VENIPUNCTURE CPT-4: 09408 12/01/2017 ANTISTREPTOLYSIN O T ITER CPT-4: 02581 12/01/2017 PROTHROMBIN TIME CPT-4: 42568 12/01/2017 VITAMIN D TOTAL (25 HYDROXY) CPT-4: 40268 12/01/2017 VITAMIN B-12 CPT-4: 36301 12/01/2017 SPECIMEN HANDLING OF FICE-LAB CPT-4: 80336 11/05/2017 ROUTINE VENIPUNCTURE CPT-4: 72792 10/14/2017 ANTISTREPTOLYSIN O T ITER CPT-4: 53439 10/14/2017 ROUTINE VENIPUNCTURE CPT-4: 49629 10/06/2017 PROTHROMBIN TIME CPT-4: 29460 10/06/2017 THER/PROPH/DIAG INJ SC/IM CPT-4: 60053 10/06/2017 TRIAMCINOLONE ACET I NJ NOS CPT-4: J3301 10/06/2017 ROUTINE VENIPUNCTURE CPT-4: 46090 10/01/2017 VITAMIN B-12 CPT-4: 57339 10/01/2017 FOLIC ACID CPT-4: 52879 10/01/2017 ASSAY THYROID STIM H ORMONE CPT-4: 40024 10/01/2017 ASSAY OF FREE THYROXINE CPT-4: 94182 10/01/2017 ASSAY TRIIODOTHYRONI NE (T3) CPT-4: 92919 10/01/2017 ASSAY OF BLOOD/URIC ACID CPT-4: 14825 10/01/2017 RHEUMATOID FACTOR QUANT CPT-4: 92367 10/01/2017 RBC SED RATE AUTOMATED CPT-4: 41360 10/01/2017 ANTISTREPTOLYSIN O T ITER CPT-4: 08241 10/01/2017 ASSAY OF IRON CPT-4: 32661 10/01/2017 ASSAY OF FERRITIN CPT-4: 94708 10/01/2017 ANTINUCLEAR ANTIBODIES CPT-4: 42116 10/01/2017 A1C HPLC CPT-4: 11458 10/01/2017 VITAMIN D TOTAL (25 HYDROXY) CPT-4: 06595 10/01/2017 THER/PROPH/DIAG INJ SC/IM CPT-4: 78464 09/05/2017 TRIAMCINOLONE ACET I NJ NOS CPT-4: J3301 09/05/2017 URINALYSIS NONAUTO W /O SCOPE CPT-4: 91350 09/05/2017 URINE CULTURE/ COLON Y COUNT CPT-4: 18529 09/05/2017 ROUTINE VENIPUNCTURE CPT-4: 21332 09/04/2017 PROTHROMBIN TIME CPT-4: 61463 09/04/2017 ROUTINE VENIPUNCTURE CPT-4: 48464 08/07/2017 COMPLETE CBC W/AUTO DIFF WBC CPT-4: 81385 08/07/2017 COMPREHEN METABOLIC PANEL CPT-4: 54999 08/07/2017 PROTHROMBIN TIME CPT-4: 34784 08/07/2017 INFLUENZA ASSAY W/OPTIC CPT-4: 73783 07/15/2017 ROUTINE VENIPUNCTURE CPT-4: 79953 07/15/2017 COMPREHEN METABOLIC PANEL CPT-4: 07684 07/15/2017 COMPLETE CBC W/AUTO DIFF WBC CPT-4: 78418 07/15/2017 CEFTRIAXONE SODIUM I NJECTION CPT-4: J0696 07/04/2017 THER/PROPH/DIAG INJ SC/IM CPT-4: 49234 07/04/2017 THER/PROPH/DIAG INJ SC/IM CPT-4: 62355 07/04/2017 TRIAMCINOLONE ACET I NJ NOS CPT-4: J3301 07/04/2017 CEFTRIAXONE SODIUM I NJECTION CPT-4: J0696 07/02/2017 THER/PROPH/DIAG INJ SC/IM CPT-4: 68222 07/02/2017 CEFTRIAXONE SODIUM I NJECTION CPT-4: J0696 07/01/2017 THER/PROPH/DIAG INJ SC/IM CPT-4: 66424 07/01/2017 ROUTINE VENIPUNCTURE CPT-4: 81674 06/19/2017 PROTHROMBIN TIME CPT-4: 69055 06/19/2017 THER/PROPH/DIAG INJ SC/IM CPT-4: 45800 04/01/2017 TRIAMCINOLONE ACET I NJ NOS CPT-4: J3301 04/01/2017 ROUTINE VENIPUNCTURE CPT-4: 86851 02/10/2017 PROTHROMBIN TIME CPT-4: 01278 02/10/2017 URINALYSIS NONAUTO W /O SCOPE CPT-4: 78312 02/10/2017 URINE CULTURE/ COLON Y COUNT CPT-4: 26463 02/10/2017 ROUTINE VENIPUNCTURE CPT-4: 14938 02/05/2017 PROTHROMBIN TIME CPT-4: 89497 02/05/2017 THROAT CULTURE CPT-4: 87172 02/03/2017 STREP A ASSAY W/OPTIC CPT-4: 75080 01/13/2017 ROUTINE VENIPUNCTURE CPT-4: 35626 12/18/2016 PROTHROMBIN TIME CPT-4: 79751 12/18/2016 URINE CULTURE/ COLON Y COUNT CPT-4: 51444 08/27/2016 ASSAY THYROID STIM H ORMONE CPT-4: 88909 08/27/2016 COMPREHEN METABOLIC PANEL CPT-4: 94496 08/27/2016 COMPLETE CBC W/AUTO DIFF WBC CPT-4: 44197 08/27/2016 PROTHROMBIN TIME CPT-4: 85537 08/27/2016 ROUTINE VENIPUNCTURE CPT-4: 37634 08/27/2016 ROUTINE VENIPUNCTURE CPT-4: 49589 05/24/2016 COMPREHEN METABOLIC PANEL CPT-4: 12057 05/24/2016 PROTHROMBIN TIME CPT-4: 73053 05/24/2016 URINALYSIS NONAUTO W /O SCOPE CPT-4: 88686 04/23/2016 URINE CULTURE/ COLON Y COUNT CPT-4: 01062 04/23/2016 PRESCRIP TRANSMIT A ERX SY CPT-4: G8553 04/23/2016 AEROBIC WOUND CULTUR E & STN CPT-4: 87765 04/17/2016 ROUTINE VENIPUNCTURE CPT-4: 36686 04/11/2016 PROTHROMBIN TIME CPT-4: 38124 04/11/2016 ROUTINE VENIPUNCTURE CPT-4: 34003 03/12/2016 COMPLETE CBC W/AUTO DIFF WBC CPT-4: 22706 03/12/2016 COMPREHEN METABOLIC PANEL CPT-4: 85463 03/12/2016 ASSAY THYROID STIM H ORMONE CPT-4: 74962 03/12/2016 PROTHROMBIN TIME CPT-4: 93087 03/12/2016 ROUTINE VENIPUNCTURE CPT-4: 04535 02/12/2016 PROTHROMBIN TIME CPT-4: 37964 02/12/2016 ROUTINE VENIPUNCTURE CPT-4: 08600 02/01/2016 PROTHROMBIN TIME CPT-4: 34289 02/01/2016 ROUTINE VENIPUNCTURE CPT-4: 12672 01/22/2016 PROTHROMBIN TIME CPT-4: 78518 01/22/2016 ROUTINE VENIPUNCTURE CPT-4: 20475 11/10/2015 PROTHROMBIN TIME CPT-4: 19164 11/10/2015 CEFTRIAXONE SODIUM I NJECTION CPT-4: J0696 11/10/2015 THER/PROPH/DIAG INJ SC/IM CPT-4: 53394 11/10/2015 EB VIRUS VCA G/M + E BNA + EA CPT-4: 85891|73654 x 2|20617 016 THROAT CULTURE CPT-4: 14389 11/09/2015 STREP A ASSAY W/OPTIC CPT-4: 99823 11/09/2015 STREP A ASSAY W/OPTIC CPT-4: 65879 10/02/2015 ROUTINE VENIPUNCTURE CPT-4: 11538 09/29/2015 COMPLETE CBC W/AUTO DIFF WBC CPT-4: 54043 09/29/2015 ASSAY OF IRON CPT-4: 45304 09/29/2015 PROTHROMBIN TIME CPT-4: 71610 09/29/2015 ROUTINE VENIPUNCTURE CPT-4: 41219 07/27/2015 PROTHROMBIN TIME CPT-4: 05302 07/27/2015 URINALYSIS NONAUTO W /O SCOPE CPT-4: 13708 06/30/2015 URINE CULTURE/ COLON Y COUNT CPT-4: 30547 06/30/2015 ROUTINE VENIPUNCTURE CPT-4: 42195 06/21/2015 PROTHROMBIN TIME CPT-4: 33978 06/21/2015 URINE CULTURE/ COLON Y COUNT CPT-4: 97410 05/31/2015 ROUTINE VENIPUNCTURE CPT-4: 50782 05/24/2015 PROTHROMBIN TIME CPT-4: 53691 05/24/2015 URINALYSIS NONAUTO W /O SCOPE CPT-4: 79396 05/24/2015 Vital Signs Date Vital 02/08/2019 Blood [...] 1: 122/70 Code: 8480-6 BMI: 32.2 Code: 50492-2 Heart Rate 1: 88 bpm Height: 5'3" Respiratory Rate: 20 bpm SpO2: 96% Temperature: 36.8 (C ) / 98.2 (F) Weight: 182 lbs 07/23/2018 Blood Pressure 1: 132/80 Code: 8480-6 Heart Rate 1: 84 bpm Respiratory Rate: 20 bpm SpO2: 96% Temperature: 36.6 (C ) / 97.8 (F) Weight: 187 lbs 07/08/2018 Blood Pressure 1: 122/70 Code: 8480-6 BMI: 32.2 Code: 03622-2 Heart Rate 1: 88 bpm Height: 5'3" Respiratory Rate: 20 bpm Temperature: 36.6 (C ) / 97.8 (F) Weight: 182 lbs 07/02/2018 Blood Pressure 1: 124/68 Code: 8480-6 BMI: 32.8 Code: 28106-5 Heart Rate 1: 84 bpm Height: 5'3" Respiratory Rate: 20 bpm SpO2: 98% Temperature: 36.3 (C ) / 97.3 (F) Weight: 185 lbs 06/02/2018 Blood Pressure 1: 132/90 Code: 8480-6 Heart Rate 1: 84 bpm Respiratory Rate: 18 bpm SpO2: 97% Temperature: 36.6 (C ) / 97.9 (F) Weight: 180 lbs 05/11/2018 Blood Pressure 1: 124/80 Code: 8480-6 BMI: 31.7 Code: 11963-0 Heart Rate 1: 88 bpm Height: 5'3" Respiratory Rate: 20 bpm Temperature: 37.0 (C ) / 98.6 (F) Weight: 179 lbs 04/02/2018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 concerns. tylenol prn pain. ICD-9 : 382.00 ICD-10 : H66.002 11/30/2018 Appointment: Ivon Sky [address] ACUTE ILLNESS 11/30/2018 Patient Education: Coumadin- OptimizeRX Coupon [id number] https://www.[email or web address]/[email or web address]/resources/getResource/61/[email or web address] Completed 11/30/2018 Appointment: Kristine Brambila WPtel: [address] [place] [address] UA 11/20/2018 Appointment: Kristine Brambila WPtel: [address] [place] [address] [place] INJECTION 11/12/2018 Visit Diagnosis Plan: Streptococcal pharyngitis Discussion: Strep A- positive ASO titer today along with CBC. Rocephin 1 gram. RTC tmrw for another injection. Patient states understanding. ICD-9 : 034.0 ICD-10 : J02.0 11/11/2018 Appointment: Lulu Navarro [address] [place] [address] ACUTE ILLNESS 11/11/2018 Appointment: Kristine Brambila WPtel: [address] [place] [address] ACUTE ILLNESS 10/27/2018 Appointment: Kristine Brambila WPtel: [address] [place] [address] [place] INJECTION 10/09/2018 Visit Diagnosis Plan: Acute recurrent maxillary sinusi tis Discussion: Rocephin 1 gram administered in clinic- patient tolerated well. Continue with supportive treatment at home as well. Tylenol for headache. Salt water gargles and sinus rinses advised. Patient states understanding. ICD-9 : 461.0 ICD-10 : J01.01 10/08/2018 Appointment: Lulu Navarro [address] [place] [address] [place] INJECTION 10/08/2018 Visit Diagnosis Plan: Acute recurrent maxillary sinusi tis Discussion: Rocephin- 1 gram administered in clinic. Patient tolerated well. Sinus rinses encouraged. Rest and fluids. Tylenol or Motrin for pain and fever. FU PRN. Patient states understanding. ICD-9 : 461.0 ICD-10 : J01.01 10/07/2018 Appointment: Lulu Navarro [address] [place], [place] [id number] ACUTE ILLNESS 10/07/2018 Visit Diagnosis Plan: Dizziness [...] : R42 09/25/2018 Appointment: Lulu Navarro [address] [place] [address] ACUTE ILLNESS 09/25/2018 Appointment: Kristine Brambila WPtel: [address] [place] [address] 09/10/2018 Visit Diagnosis Plan: Furuncle right hand [...] : R22.1 09/08/2018 Appointment: Kristine Brambila WPtel: [facility] ACUTE ILLNESS 09/08/2018 Patient Education: cefdinir- OptimizeRX Coupon [id number] https://www.Renovar/samplemd/resources/getResource/61/[email or web address]-[email or web address] Completed 09/08/2018 Appointment: Kristine Brambila WPtel: [facility] LAB 08/14/2018 Visit Diagnosis Plan: Acute sinusitis, [...] ICD-10 : H92.02 07/23/2018 Appointment: Ivon Sky [address] [place] [address] ACUTE ILLNESS 07/23/2018 Patient Education: cyclobenzaprine- Opti mizeRX Coupon [id number] https://www.Renovar/sampleVermont [employer]/resources/getResource/61/[email or web address] [email or web address].pdf Completed 07/23/2018 Visit Diagnosis Plan: Streptococcal infe ction, unspecified site Discussion: Pen Jude Dove Sees dentist today t o assess tooth ICD-9 : 041.00 ICD-10 : A49.1 07/08/2018 Appointment: Kristine Brambila WPtel: [facility] FOLLOW UP 07/08/2018 Patient Education: penicillin V potassiu m- OptimizeRX Coupon [id number] https://www.Renovar/[employer] Discoverymd/resources/getResource/61/[email or web address].pdf Completed 07/08/2018 Visit Diagnosis Plan: Localized enlarged [...] ICD-10 : K04.6 07/02/2018 Appointment: Ivon Sky [address] [place] [address] ACUTE ILLNESS 07/02/2018 Appointment: Kristine Brambila WPtel: [address] [place] [address] LAB 06/22/2018 Appointment: Kristine Brambila WPtel: [address] [place] [address] UA 06/17/2018 Visit Diagnosis Plan: Acute sinusitis, unspecified Discussion: dc keflex. start cefdinir daily for 10 days. saline up nares prn congestion. if no improvement after antibiotics or worsening symtpoms, call clinic. 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 clindamycin prescribed for patient to take as directed. instructed to stop nasal sprays due to worsening pain/irritation and only use saline rinse up nares for now. call with any new or worsening symptoms. ICD-9 : 461.9 ICD-10 : J01.90 04/02/2018 Appointment: Ivon Sky [address] ACUTE ILLNESS 04/02/2018 Patient Education: Patient Medication Summary Completed 04/02/2018 Appointment: Kristine Brambila WPtel: [address] [place], [place] [phone] [place] LAB 03/24/2018 Patient Education: Patient Medication [...] : G43.909 03/16/2018 Appointment: Ivon Sky 504 [facility] ACUTE ILLNESS 03/16/2018 Patient Education: Patient Medication Summary Completed 03/16/2018 Appointment: Kristine Brambila WPtel: [address] [place], [place] [phone] [place] LAB 02/24/2018 Patient Education: Patient Medication Summary Completed 02/24/2018 Appointment: Kristine Brmabila WPtel: [address] [place] [address] RESCHEDULED 02/18/2018 Visit Diagnosis Plan: Abdominal distension (gaseous) Discussion: Wanda Restora Rx 1 daily Follow Up: 2 weeks ICD-9 : 787.3 ICD-10 : R14.0 02/16/2018 Visit Diagnosis Plan: Epigastric pain Discussion: Pepcid BID ICD-9 : 789.06 ICD-10 : R10.13 02/16/2018 Visit Diagnosis Plan: Diarrhea, unspecified Discussion: Wanda ICD-9 : 787.91 ICD-10 : R19.7 02/16/2018 Appointment: Kristine Brambila WPtel: [address] [place] [address] ACUTE ILLNESS 02/16/2018 Patient Education: Patient Medication Summary Completed 02/16/2018 Appointment: Kristine Brambila WPtel: [address] [place], [place] [phone] [place] INJECTION 02/05/2018 Patient Education: Patient Medication Summary Completed 02/05/2018 Appointment: Kristine Brambila WPtel: [address] [place], [place] [phone] [place] INJECTION 01/29/2018 Patient Education: Patient Medication Summary Completed 01/29/2018 Appointment: Kristien Brambila WPtel: [address] [place], [place] [phone] [place] INJECTION 01/28/2018 Patient Education: Patient Medication [...] ICD-10 : H66.001 01/26/2018 Appointment: Ivon Sky [address] [place] [address] ACUTE ILLNESS 01/26/2018 Patient Education: Patient Medication [...] ICD-10 : K13.79 01/01/2018 Appointment: Ivon Sky [address] [place] [address] ACUTE ILLNESS 01/01/2018 Patient Education: Patient Medication [...] ICD-10 : G43.909 12/25/2017 Appointment: Ivon Sky [address] [place] [address] ACUTE ILLNESS 12/25/2017 Patient Education: Patient Medication Summary Completed 12/25/2017 Visit Diagnosis Plan: Acute pharyngitis, unspecified Discussion: rapid strep negative. rocephin injection given in office. clindamycin prescribed as well to start tomorrow for 10 days. increase fluid intake. call or rtc next week if new or worsening symptoms. ICD-9 : 462 ICD-10 : J02.9 12/11/2017 Appointment: Ivon Sky [address] [place], [place] [address] ACUTE ILLNESS 12/11/2017 Patient Education: Patient Medication Summary Completed 12/11/2017 Appointment: Kristine Brambila WPtel: [address] [place] [address] LAB 12/01/2017 Patient Education: Patient Medication Summary Completed 12/01/2017 Visit Diagnosis Plan: Encounter for gyne cological examination (general) (routine) without abnormal findings Discussion: Pap done as has a history of choriocarcinoma Had mammogram last month ICD-9 : V72.31 ICD-10 : Z01.419 11/05/2017 Appointment: Kristine Brambila WPtel: [address] [place] [address] Annual Well Visit 11/05/2017 Patient Education: Patient Medication Summary Completed 11/05/2017 Appointment: Kristine Brambila WPtel: [address] [place] [address] LAB 10/14/2017 Patient Education: Patient Medication Summary Completed 10/14/2017 Care Plan: X-RAY EXAM OF SHOULDER right LOINC : 29224-9 Pending 10/07/2017 Visit Diagnosis Plan: Pain in right shoulder Discussion: xray ordered of right shoulder to rule out fracture. 40 mg kenalog given as one shot to assist with pain. 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 ICD-9 : V58.61 ICD-10 : Z79.01 10/06/2017 Appointment: Ivon Sky [address] [place], [place] [id number] ACUTE ILLNESS 10/06/2017 Patient Education: Patient Medication [...] : I73.00 10/01/2017 Appointment: Kristine Brambila WPtel: [address] [place] [address] ACUTE ILLNESS 10/01/2017 Patient Education: Patient Medication [...] ICD-10 : T23.262A 09/10/2017 Appointment: Ivon Sky [address] [place] [address] ACUTE ILLNESS 09/10/2017 Patient Education: Patient Medication Summary Completed 09/10/2017 Appointment: Kristine Brambila WPtel: [address] [place], [place] [phone] [place] INJECTION 09/05/2017 Patient Education: Patient Medication Summary Completed 09/05/2017 Appointment: Kristine Brambila WPtel: [address] [place], [place] [phone] [place] LAB 09/04/2017 Patient Education: Patient Medication Summary Completed 09/04/2017 Appointment: Kristine Brambila WPtel: [address] [place], [place] [phone] [place] LAB 08/07/2017 Patient Education: Patient Medication Summary Completed 08/07/2017 Patient Education: Patient Medication Summary Completed 07/21/2017 Care Plan: CHEST X-RAY 2VW FRONTAL&LATL LOINC : 18577-9 Pending 07/21/2017 Visit Diagnosis Plan: Acute upper [...] : K21.9 07/15/2017 Appointment: Ivon Sky [address] ACUTE ILLNESS 07/15/2017 Patient Education: Patient Medication Summary Completed 07/15/2017 Appointment: Kristine Brambila WPtel: [address] [place], [place] [phone] [place] INJECTION 07/04/2017 Patient Education: Patient Medication Summary Completed 07/04/2017 Appointment: Kristine Brambila WPtel: [address] [place], [place] [phone] [place] INJECTION 07/02/2017 Patient Education: Patient Medication [...] : H66.92 07/01/2017 Appointment: Ivon Sky 504 [facility] ACUTE ILLNESS 07/01/2017 Patient Education: Patient Medication Summary Completed 07/01/2017 Care Plan: US EXAM OF HEAD AND NECK Pending 07/01/2017 Appointment: Kristine Brambila WPtel: [address] [place] [place] LAB 06/19/2017 Patient Education: Patient Medication [...] : J18.9 05/27/2017 Appointment: Ivon Sky 504 [facility]6676[facility] ACUTE ILLNESS 05/27/2017 Patient Education: Patient Medication [...] : G47.00 05/20/2017 Appointment: [facility] 504 [facility] [facility] 05/20/2017 Patient Education: Patient Medication Summary Completed 05/20/2017 Visit Diagnosis Plan: Headache Discu ssion: Discussed likely Migraine Discussed MRI results Discussed changing acetazolamide to HCTZ ICD-9 : 784.0 ICD-10 : R51 04/22/2017 Visit Diagnosis Plan: Diplopia Discu ssion: Updated dilated eye exam ICD-9 : 368.2 ICD-10 : H53.2 04/22/2017 Appointment: Kristine Brambila WPtel: [address] [place] [address] US FOLLOW UP 04/22/2017 Patient Education: Patient Medication Summary Completed 04/22/2017 Appointment: Kristine Brambila WPtel: [address] [place] [address] [place] RESCHEDULED 04/07/2017 Visit Plan: Saline nasal flushes pr n. Tylenol/Motrin prn headache. Notify if persists/symptoms worsening. 04/01/2017 Visit Plan: Saline nasal flushes pr n. Tylenol/Motrin prn headache. Notify if persists/symptoms worsening. 04/01/2017 Visit NOS Plan: Plan Notes: Saline nasal flushes prn. Tyle... 04/01/2017 Visit Diagnosis Plan: Acute sinusitis, unspecified Discussion: Kenalog 40mg IM x1 Decadron/Garamycin Nose [place] Mix Has appointment on April 28 with ENT ICD-9 : 461.9 ICD-10 : J01.90 04/01/2017 Appointment: Kristine Brambila WPtel: [address] [place] [address] ACUTE ILLNESS 04/01/2017 Patient Education: Patient Medication Summary Completed 04/01/2017 Referral: Serjio Lugo WPtel: [address] [address] [place] Referral Appointment Requested 03/20/2017 Patient Education: Patient Medication Summary Completed 02/27/2017 Care Plan: CT ABDOMEN W/O DYE abd/pe lvis stone search LOINC : 49406-1 Pending 02/27/2017 Patient Education: Patient Medication Summary Completed 02/12/2017 Care Plan: MRI NECK SPINE W/O DYE LOINC : 70622-3 Pending 02/12/2017 Appointment: Kristine Brambila WPtel: [address] [place] [address] [place] LAB 02/10/2017 Patient Education: Patient Medication [...] ICD-10 : M54.2 02/05/2017 Appointment: Kristine Brambilatel: [address] [place] [address] ACUTE ILLNESS 02/05/2017 Patient Education: Patient Medication Summary Completed 02/05/2017 Care Plan: Referral Order SNOMED-CT : [id number] Pending 02/05/2017 Appointment: Kristine Brambila WPtel: [address] [place], [place] [phone] THROAT SWAB 02/03/2017 Patient Education: Patient Medication Summary Completed 02/03/2017 Appointment: Kristine Brambila WPtel: [address] [place], [place] [phone] 01/13 canceled~sl CANCELED 01/28/2017 Visit Plan: Supportive [...] : J02.8 01/13/2017 Appointment: Kristine Brambila WPtel: [facility] [facility] 01/13/2017 Patient Education: Patient Medication Summary Completed 01/13/2017 Appointment: Kristine Brambila WPtel: [facility] LAB 12/18/2016 Patient Education: Patient Medication Summary Completed 12/18/2016 Visit Diagnosis Plan: Pain in unspecified joint Discussion: Will retry methotrexate since has worked in past to greatly reduce patient's pain--4 tabs week one then 5 tabs week 2 then 6 tabs weekly and fwup in 6 weeks ICD-9 : 719.49 ICD-10 : M25.50 11/27/2016 Appointment: Kristine Brambila WPtel: [facility] 11/26 lm~sl 11/26 confimed~sl MEDICATION REVIEW 11/27/2016 Patient Education: Patient Medication Summary Completed 11/27/2016 Visit Plan: Supportive care. Rest, Fluids, Tylenol/Motrin prn fever or bodyaches. Notify if worsening symptoms. 08/27/2016 Visit Plan: Supportive care. Rest, Fluids, Tylenol/Motrin prn fever or bodyaches. Notify if worsening symptoms. 08/27/2016 Visit NOS Plan: Plan Notes: Support gauri care. Rest, Fluids... 08/27/2016 Visit Diagnosis Plan: shelter (current ) use of anticoagulants Discussion: PT/INR drawn ICD-9 : V58.61 ICD-10 : Z79.01 08/27/2016 Visit Diagnosis Plan: Dysuria Discus steven: Culture urine ICD-9 : 788.1 ICD-10 : R30.0 08/27/2016 Visit Diagnosis Plan: URI, ACUTE Dis cussion: Supportive care ICD-9 : 465.9 ICD-10 : J06.9 08/27/2016 Appointment: Kristine Brambila WPtel: [address] [place] [address] 08/26 confirmed`sl MEDICATION REVIEW 08/27/2016 Patient Education: Patient Medication Summary Completed 08/27/2016 Appointment: Kristine Brambila WPtel: [address] [place], [place] [phone] BP CHECK 07/08/2016 Patient Education: Patient Medication Summary Completed 07/08/2016 Appointment: Kristine Brambila WPtel: [address] [place], [place] [phone] LAB 05/24/2016 Patient Education: Patient Medication Summary Completed 05/24/2016 Appointment: Kristine Brambila WPtel: [address] [place], [place] [phone] 04/24 will not be able to get [...] call with culture results 04/23/2016 Appointment: Nayeli Adnerson 2305 [facility] [facility] 04/23/2016 Patient Education: Patient Medication [...] oral abx 04/17/2016 Appointment: Justin Nayeli [address] ACUTE ILLNESS 04/17/2016 Patient Education: Patient Medication Summary Completed 04/17/2016 Patient Education: [facility] - Saving AutoInj - 18-64 - Dynamic Portal ID Completed 04/17/2016 Appointment: Kristine Brambila WPtel: [address] [place] [address] LAB 04/11/2016 Patient Education: Patient Medication Summary [...] for migraines 03/12/2016 Appointment: Kristine Brambila WPtel: [address] [place] [address] 03/12 confirmed-sp FOLLOW UP 03/12/2016 Patient Education: Patient Medication Summary Completed 03/12/2016 Appointment: Kristine Brambila WPtel: [address] [place] [address] LAB 02/12/2016 Patient Education: Patient Medication Summary Completed 02/12/2016 Appointment: Kristine Brambila WPtel: [address] [place] [address] LAB 02/01/2016 Patient Education: Patient Medication Summary Completed 02/01/2016 Appointment: Kristine Brambila WPtel: [address] [place] [address] LAB 01/22/2016 Patient Education: Patient Medication Summary [...] improvement 11/10/2015 Appointment: Julee Slater WPtel: [phone] [id number] ACUTE ILLNESS 11/10/2015 Patient Education: Patient Medication [...] care otherwise 11/09/2015 Appointment: Nayeli Anderson [address] ACUTE ILLNESS 11/09/2015 Patient Education: Patient Medication Summary Completed 11/09/2015 Referral: Maximiliano Neves WPtel: [address] [id number] [place] Spoke with Sally at Dr. Ta's offic e. Patient is scheduled for 10/16/15 at 3:15pm. Demographics and notes have been faxed. Patient has been informed. -sp Initi ated 10/16/2015 Visit Plan: Proceed with biopsy/rem oval of right posterior neck node Mammogram ordered--US of right axilla if needed 10/10/2015 Appointment: Kristine Brambila WPtel: [phone] [facility] 10/08 confirmed ~sl FOLLOW UP 10/10/2015 Patient Education: Patient Medication Summary Completed 10/10/2015 Patient Education: [facility] - Saving AutoInj - 18-64 - Dynamic Portal ID Completed 10/10/2015 Care Plan: MAMMOGRAM SCREENING LOINC : 10175-7 Pending 10/10/2015 Visit Plan: Labs ordered - [...] with Dr Brambila for next week for director long term care management of pain 10/02/2015 Visit Plan: Labs [...] with Dr Brambila for next week for director long term care management of pain 10/02/2015 Appointment: Nayeli Anderson 2305 [facility]6676[facility] ACUTE ILLNESS 10/02/2015 Patient Education: Patient Medication Summary Completed 10/02/2015 Patient Education: [facility] - Saving AutoInj - 18-64 - Dynamic Portal ID Completed 10/02/2015 Care Plan: US EXAM OF HEAD AND NECK Pending 10/02/2015 Appointment: Kristine Brambila WPtel: [address] [place], [place] [address] [place] LAB 09/29/2015 Patient Education: Patient Medication Summary Completed 09/29/2015 Appointment: Kristine Brambila WPtel: [address] [place] [address] [place] LAB 07/27/2015 Patient Education: Patient Medication Summary Completed 07/27/2015 Visit Plan: Trial of Savella Did no t tolerate lyrica Did not tolerate cymbalta 07/10/2015 Appointment: Kristine Brambila WPtel: [address] [place], [place] [phone] 07/10 appt confirmed cn FOLLOW UP 07/10/2015 Patient Education: Patient Medication Summary Completed 07/10/2015 Appointment: Kristine Brambila WPtel: [phone] [facility] [facility] 06/30/2015 Patient Education: Patient Medication Summary Completed 06/30/2015 Visit Plan: Recommended Vitamin E o il topically bid to area of scar. Currently taking Amoxicillin for sinusitis. Recommend Flonase nasal spray 06/27/2015 Visit Plan: Recommended Vitamin E o il topically bid to area of scar. Currently taking Amoxicillin for sinusitis. Recommend Flonase nasal spray 06/27/2015 Appointment: Meli Hatch WPtel: [phone] [facility] ACUTE ILLNESS 06/27/2015 Patient Education: Patient Medication Summary Completed 06/27/2015 Appointment: Meli Hatch WPtel: [address] [place], [place] [phone] 06/22/15 appt confirmed and she will dreacharisma garcia new insurance card cn ACUTE ILLNESS 06/26/2015 Appointment: Kristine Brambila WPtel: [phone] [facility] [facility] 06/21/2015 Patient Education: Patient Medication Summary Completed 06/21/2015 Visit Plan: Add cymbalta at 30mg da loli Repeat PT/INR in 2weeks Recheck 1mo Awaiting ID to reschedule 06/08/2015 Visit Plan: Add cymbalta at 30mg da loli Repeat PT/INR in 2weeks Recheck 1mo Awaiting ID to reschedule 06/08/2015 Appointment: Kristine Brambila WPtel: [phone] [facility] 06/07 lm ~sl 06/08 confirmed ~sl FOLLOW UP 06/08/2015 Patient Education: Patient Medication Summary Completed 06/08/2015 Patient Education: [facility] - Saving AutoInj - Cymbalta - 18-64 - Dynamic Portal ID Completed 06/08/2015 Patient Education: [facility] - Roberto Carlos AutoInj - 18-64 - Dynamic Portal ID Completed 06/08/2015 Appointment: Kristine Brambila WPtel: [phone] [facility] [facility] 05/31/2015 Patient Education: Patient Medication Summary Completed 05/31/2015 Visit Plan: Check PT/INR today Stop ped Lyrica due to fluid retention Has appt. scheduled at [facility] with hematology and infectious disease 06/08 Follow-up appt. in 2 weeks following appt. at . 05/24/2015 Visit Plan: Check PT/INR today Stop ped Lyrica due to fluid retention Has appt. scheduled at [facility] with hematology and infectious disease 06/08 Follow-up appt. in 2 weeks following appt. at . 05/24/2015 Appointment: Meli Hatch WPtel: [phone] [facility] NEW PATIENT 05/24/2015 Patient Education: Patient Medication Summary Completed 05/24/2015 Patient Education: [facility] - Roberto Carlos AutoInj - 18-64 - Dynamic Portal ID Completed 05/24/2015 Referral: Annamarie Melo WPtel: [facility] [address] [facility] Referral Initiated Instructions Comment . Rapid strep [...] to fluid retention Has appt. scheduled at [facility] with hematology and infectious disease 06/08 Follow-up appt. in 2 weeks following appt. at . . Check PT/INR today Stopped Lyrica due to fluid retention Has appt. scheduled at [facility] with hematology and infectious disease 06/08 [...] with Dr Brambila for next week for senior living management of pain . Labs ordered - [...] with Dr [place] for next week for senior living management of pain . Recommended Vitami n [...]
--- OUTSIDE RECORDS SUMMARY | 2020-01-28 14:08 | XMS REPORT | CCD ---
Author Author Heydi Hatch APRN Organization [facility] Address [address] [place] [address] Phone Care Team Providers Care Configuration Manager Name Role Phone Kristine Brambila D.O., PP Unavailable CCM Unavailable Summary Purpose Interface Exchange Insurance Providers Payer name Policy type / Coverage type Covered green party ID Effective Begin Date Effective End Date Blue Cross Blue Shield Blue Cross/Bl ue Shield [id number] 2018 Un known Family History Family History data not found Social History Social History Element Codes Description Effective Dates Tobacco history SNOMED CT: [id number] Current every day smoker 06/08/2015 Allergies, Adverse [...] ICD-9: 786.2 ICD-10: R05 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 ICD-9: 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.61 ICD-10: [...] 02/10/2017 Unknown Pelvic and perineal pain ICD-9: [id number] ICD-10: R10.2 Active 02/10/2017 Unknown Cervicalgia ICD-9: [...] COUGH ICD-9: 786.2 ICD-10: R05 07/21/2017 Active 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 ICD-9: V58.61 ICD-10: [...] 02/10/2017 Active Pelvic and perineal pain ICD-9: [id number] ICD-10: R10.2 02/10/2017 Active Cervicalgia ICD-9: 723.1 [...] Fill Instructions Diflucan 150 mg tablet RxNorm: 110285 TABLET(S) 1 TABLET(S) PO QW NEEDED 02/08/2019 No Stop Date Active Anusol-HC 25 mg rect al suppository RxNorm: 5196041 1 Suppository RTL QD as needed 02/08/2019 03/09/2019 Ac tive hydrocodone 10 mg-ac etaminophen 325 mg tablet RxNorm: 083267 1 Tablet(s) PO Q4-6H as needed for pain 02/01/2019 No Stop Date Active hydrocodone 10 mg-ac etaminophen 325 mg tablet RxNorm: 978799 1 Tablet(s) PO Q4-6H as needed for pain 02/01/2019 No Stop Date Active Diflucan 150 mg tablet RxNorm: 591366 Tablet(s) TABLET(S) 1 TABLET(S) PO QW NEEDED 01/28/2019 No Stop Date Active Vistaril 25 mg capsule RxNorm: 630012 1 Capsule(s) PO TID 01/27/2019 07/25/2019 Active ProAir HFA 90 mcg/ac tuation aerosol inhaler RxNorm: 964607 2 Puff(s) INH Q4H as needed 01/20/2019 No Stop Date Active Tessalon Perles 100 mg capsule RxNorm: 999273 1 Capsule(s) PO TID a s needed for cough 01/20/2019 No Stop Date Active doxycycline hyclate 100 mg capsule RxNorm: 9284038 1 Capsule(s) PO BID 01/20/2019 01/19/2019 In active doxycycline hyclate 100 mg capsule RxNorm: 1063527 1 Capsule(s) PO BID 01/20/2019 01/26/2019 In active Coumadin 5 mg tablet RxNorm: 479523 1 Tablet(s) PO QD (on Mon, Tu, Wed, ur, Fri and Sun) 01/05/2019 06/09/2019 Active Generic For:COUMADIN 5MG TAB 05/25/2018 3:20:45 PM N O T I C E Last quantity doesn't match original quantity amoxicillin 500 mg c apsule RxNorm: 338863 1 Capsule(s) PO BID 01/05/2019 01/14/2019 Inactive amoxicillin 500 mg c apsule RxNorm: 984230 1 Capsule(s) PO BID 01/05/2019 01/04/2019 Inactive hydrocodone 10 mg-ac etaminophen 325 mg tablet RxNorm: 864693 1 Tablet(s) PO Q4-6H as needed for pain 01/01/2019 01/31/2019 Inactive cyclobenzaprine 10 m g tablet RxNorm: 163150 1 TABLET(S) PO QD NEEDED 12/23/2018 06/20/2019 Ac tive Coumadin 5 mg tablet RxNorm: 733039 Tablet(s) TAKE 1 TABLET(S) BY MOUTH FRI, FRI, FRI, Friday12/23/2018 01/04/2019 Inactive Generic For:COUMADIN 5MG TA B 05/25/2018 3:20:45 PM N O T I C E Last quantity doesn't match original quantity Diflucan 150 mg tablet RxNorm: 056183 Tablet(s) TABLET(S) 1 TABLET(S) PO QW NEEDED 12/23/2018 01/27/2019 Inactive Vitamin D2 50,000 un it capsule RxNorm: 1929859 1 Capsule(s) PO QW 12/04/2018 03/03/2019 Active Medrol (Juan Francisco) 4 mg ta blets in a dose pack RxNorm: 028105 Tablet(s) PO as direc liane 12/04/2018 12/03/2018 In active Vitamin D2 50,000 un it capsule RxNorm: 5476670 1 Capsule(s) PO QW 12/04/2018 12/03/2018 Inactive Medrol (Juan Francisco) 4 mg ta blets in a dose pack RxNorm: 897435 Tablet(s) PO as direc liane 12/04/2018 01/19/2019 In active Zithromax Z-Juan Francisco 250 mg tablet RxNorm: 029390 Tablet(s) PO take as directed 12/02/2018 No Stop Date Active Vistaril 25 mg capsule RxNorm: 099348 Capsule(s) 1 Capsule(s) PO TID as needed for anxiety 11/30/2018 02/27/2019 Active Coumadin 5 mg tablet RxNorm: 969347 Tablet(s) TAKE 1 TABLET(S) BY MOUTH FRI, FRI, Friday11/30/2018 12/22/2018 Inactive Generic For:COUMADIN 5MG TA B 05/25/2018 3:20:45 PM N O T I C E Last quantity doesn't match original quantity Diflucan 150 mg tablet RxNorm: 211457 Tablet(s) TABLET(S) 1 TABLET(S) PO QW NEEDED 11/26/2018 12/22/2018 Inactive cholestyramine (with sugar) 4 gram oral powder RxNorm: 923657 1 UNIT DOSE PO QD 11/24/2018 02/21/2019 Ac tive acetazolamide 125 mg tablet RxNorm: 842298 1 Tablet(s) PO BID 11/24/2018 02/21/2019 Active cyclobenzaprine 10 m g tablet RxNorm: 030890 1 Tablet(s) PO QD as needed 11/17/2018 12/22/2018 In active hydrocodone 10 mg-ac etaminophen 325 mg tablet RxNorm: 623042 1 Tablet(s) PO Q4-6H as needed for pain 11/05/2018 01/31/2019 Inactive acetazolamide 125 mg tablet RxNorm: 535752 1 TABLET(S) PO BID 10/26/2018 11/23/2018 Inactive cholestyramine (with sugar) 4 gram oral powder RxNorm: 710478 1 UNIT DOSE PO QD 10/26/2018 11/23/2018 In active Coumadin 5 mg tablet RxNorm: 213868 TAKE 1 TABLET(S) BY MOUTH FRI, FRI, FRI, Friday10/26/2018 11/29/2018 Inactive Generic For:COUMADIN 5MG TAB 05/25/2018 3:20:45 PM N O T I C E Last quantity doesn't match original quantity Diflucan 150 mg tablet RxNorm: 198775 TABLET(S) 1 TABLET(S) PO QW NEEDED 10/26/2018 11/25/2018 In active hydrocodone 10 mg-ac etaminophen 325 mg tablet RxNorm: 627337 1 Tablet(s) PO Q4-6H as needed for pain 10/08/2018 11/04/2018 Inactive acetazolamide 125 mg tablet RxNorm: 893714 1 Tablet(s) PO BID 09/24/2018 10/23/2018 Inactive Coumadin 5 mg tablet RxNorm: 097287 TAKE 1 TABLET(S) BY MOUTH FRI, FRI, FRI, Friday09/24/2018 10/25/2018 Inactive Generic For:COUMADIN 5MG TAB 05/25/2018 3:20:45 PM N O T I C E Last quantity doesn't match original quantity Diflucan 150 mg tablet RxNorm: 638710 Tablet(s) 1 Tablet(s) PO QW as needed 09/24/2018 10/25/2018 In active cyclobenzaprine 10 m g tablet RxNorm: 999302 1 Tablet(s) PO QD as needed 09/24/2018 11/16/2018 In active Vistaril 25 mg capsule RxNorm: 108397 1 Capsule(s) PO TID as needed for anxiet y 09/24/2018 11/29/2018 In active cholestyramine (with sugar) 4 gram oral powder RxNorm: 082235 1 Unit Dose PO QD 09/24/2018 10/23/2018 In active Pyridium 200 mg tablet RxNorm: 6886117 1 Tablet(s) PO TID 09/10/2018 09/19/2018 Inactive Pyridium 200 mg tablet RxNorm: 6162991 1 Tablet(s) PO TID 09/10/2018 09/09/2018 Inactive hydrocodone 10 mg-ac etaminophen 325 mg tablet RxNorm: 270266 1 Tablet(s) PO Q4-6H as needed for pain 09/08/2018 10/07/2018 Inactive cefdinir 300 mg capsule RxNorm: 443319 1 Capsule(s) PO BID 09/08/2018 09/21/2018 Inactive hydrocodone 10 mg-ac etaminophen 325 mg tablet RxNorm: 826311 1 Tablet(s) PO Q4-6H as needed for pain 08/13/2018 09/07/2018 Inactive cyclobenzaprine 10 m g tablet RxNorm: 281528 1 Tablet(s) PO QD as needed 07/23/2018 09/23/2018 In active Diflucan 150 mg tablet RxNorm: 375557 Tablet(s) 1 Tablet(s) PO QW as needed 07/23/2018 09/23/2018 In active Ciprodex 0.3 %-0.1 % ear drops,suspension RxNorm: 243780 4 Drop(s) left otic ( ear) BID 07/23/2018 07/29/2018 Inactive hydrocodone 10 mg-ac etaminophen 325 mg tablet RxNorm: 780508 1 Tablet(s) PO Q4-6H as needed for pain 07/16/2018 08/12/2018 Inactive penicillin V potassi um 500 mg tablet RxNorm: 433462 1 Tablet(s) PO Q6H 07/08/2018 07/17/2018 In active cyclobenzaprine 10 m g tablet RxNorm: 944960 1 Tablet(s) PO QD as needed 06/22/2018 07/22/2018 In active Vistaril 25 mg capsule RxNorm: 364172 1 Capsule(s) PO TID as needed for anxiet y 06/22/2018 09/23/2018 In active cholestyramine (with sugar) 4 gram oral powder RxNorm: 783307 1 Unit Dose PO QD 06/22/2018 09/23/2018 In active hydrocodone 10 mg-ac etaminophen 325 mg tablet RxNorm: 047733 1 Tablet(s) PO Q4-6H as needed for pain 06/17/2018 07/15/2018 Inactive cefdinir 300 mg capsule RxNorm: 214336 1 Capsule(s) PO BID 06/02/2018 06/11/2018 Inactive Diflucan 150 mg tablet RxNorm: 963136 Tablet(s) 1 Tablet(s) PO QW as needed 06/02/2018 07/22/2018 In active Coumadin 5 mg tablet RxNorm: 351621 TAKE 1 TABLET(S) BY MOUTH FRI, FRI, FRI, Friday05/25/2018 07/15/2018 Inactive Generic For:COUMADIN 5MG TAB 05/25/2018 3:20:45 PM N O T I C E Last quantity doesn't match original quantity Imitrex 50 mg tablet RxNorm: 068348 Tablet(s) 1 Tablet(s) PO at headache. re peat in 2 hours if no relief. no more than 2 tabs per day 05/19/2018 No Stop Date Active cholestyramine (with sugar) 4 gram oral powder RxNorm: 874761 1 Unit Dose PO QD 05/19/2018 11/14/2018 In active Vistaril 25 mg capsule RxNorm: 713309 1 Capsule(s) PO TID 05/19/2018 11/14/2018 Inactive Coumadin 5 mg tablet RxNorm: 770093 Tablet(s) TAKE 1 TABLET(S) BY MOUTH FRI, FRI, FRI, Friday05/19/2018 05/24/2018 Inactive Generic For:COUMADIN 5MG TA B N O T I C E Last quantity doesn't match original quantity acetazolamide 125 mg tablet RxNorm: 647604 1 Tablet(s) PO BID 05/19/2018 09/23/2018 Inactive cyclobenzaprine 10 m g tablet RxNorm: 905277 1 Tablet(s) PO QD as needed 05/19/2018 11/17/2018 In active Coumadin 7.5 mg tablet RxNorm: 154316 1 Tablet(s) PO QD , Th, 05/19/2018 01/04/2019 In active ketorolac 10 mg tablet RxNorm: 168297 1 Tablet(s) PO QHS as needed 05/11/2018 No Stop Date Active promethazine 12.5 mg tablet RxNorm: 845480 1 Tablet(s) PO Q6H as needed 04/23/2018 04/22/2018 In active acetazolamide 125 mg tablet RxNorm: 704601 1 Tablet(s) PO BID 04/23/2018 05/18/2018 Inactive Coumadin 5 mg tablet RxNorm: 252019 TAKE 1 TABLET(S) BY MOUTH FRI, FRI, FRI, Friday04/23/2018 05/18/2018 Inactive Generic For:COUMADIN 5MG TAB N O T I C E Last quantity doesn't match original quantity Imitrex 50 mg tablet RxNorm: 925244 1 Tablet(s) PO at headache. repeat in 2 hours if no relief. no more than 2 tabs per day 04/23/2018 05/18/2018 Inactive cyclobenzaprine 10 m g tablet RxNorm: 995455 1 Tablet(s) PO QD as needed 04/23/2018 05/18/2018 In active clindamycin HCl 300 mg capsule RxNorm: 416710 1 Capsule(s) PO TID 04/02/2018 04/11/2018 Inactive hydrocodone 10 mg-ac etaminophen 325 mg tablet RxNorm: 127504 1 Tablet(s) PO Q4-6H as needed for pain 03/24/2018 06/16/2018 Inactive promethazine 12.5 mg tablet RxNorm: 228031 1 Tablet(s) PO Q6H 03/23/2018 04/23/2018 Inactive Imitrex 50 mg tablet RxNorm: 617007 1 Tablet(s) PO at headache. repeat in 2 hours if no relief. no more than 2 tabs per day 03/23/2018 04/22/2018 Inactive Diflucan 150 mg tablet RxNorm: 708324 1 Tablet(s) PO QW as needed 03/23/2018 06/01/2018 Inactive Coumadin 5 mg tablet RxNorm: 353256 Tablet(s) 1 Tablet(s) PO Mon, Wed, Fri, Sun 03/23/2018 04/22/2018 In active Imitrex 100 mg tablet RxNorm: 638382 Tablet(s) PO take one tablet at sign of headache and repeat in 2 hours if ineffective 03/16/2018 04/01/2018 Inactive ondansetron HCl 4 mg tablet RxNorm: 541612 1 Tablet(s) PO Q4H as needed for nausea 02/24/2018 04/01/2018 In active hydrocodone 10 mg-ac etaminophen 325 mg tablet RxNorm: 887743 1 Tablet(s) PO Q4-6H as needed for pain 02/24/2018 03/23/2018 Inactive Coumadin 5 mg tablet RxNorm: 977139 Tablet(s) 1 Tablet(s) PO Mon, Wed, Fri, Sun 02/20/2018 03/22/2018 In active promethazine 12.5 mg tablet RxNorm: 633066 1 Tablet(s) PO Q6H 02/20/2018 03/22/2018 Inactive Pepcid 40 mg tablet RxNorm: 041367 1 Tablet(s) PO BID for stomach 02/16/2018 03/17/2018 In active Flagyl 500 mg tablet RxNorm: 874626 1 Tablet(s) PO TID 02/16/2018 02/25/2018 Inactive Imitrex 50 mg tablet RxNorm: 330878 1 Tablet(s) PO at headache. repeat in 2 hours if no relief. no more than 2 tabs per day 01/27/2018 03/15/2018 Inactive Coumadin 5 mg tablet RxNorm: 391523 1 Tablet(s) PO Mon, Fri, Fri, Sun 01/27/2018 02/20/2018 In active amoxicillin 875 mg t ablet RxNorm: 962342 1 Tablet(s) PO BID 01/26/2018 02/04/2018 Inactive Imitrex 50 mg tablet RxNorm: 604093 1 Tablet(s) PO at headache. repeat in 2 hours if no relief. no more than 2 tabs per day 01/26/2018 03/22/2018 Inactive cyclobenzaprine 10 m g tablet RxNorm: 692970 1 Tablet(s) PO QD as needed 01/23/2018 03/23/2018 In active promethazine 12.5 mg tablet RxNorm: 481483 1 Tablet(s) PO Q6H 01/23/2018 02/19/2018 Inactive Diflucan 150 mg tablet RxNorm: 537391 1 Tablet(s) PO QW as needed 01/22/2018 03/22/2018 Inactive acetazolamide 125 mg tablet RxNorm: 224735 1 Tablet(s) PO BID 01/22/2018 04/21/2018 Inactive Imitrex 50 mg tablet RxNorm: 567718 1 Tablet(s) PO at headache. repeat in 2 hours if no relief. no more than 2 tabs per day 01/02/2018 01/25/2018 Inactive Ciprodex 0.3 %-0.1 % ear drops,suspension RxNorm: 165134 4 Drop(s) otic (ear) BID 01/01/2018 01/07/2018 In active Coumadin 7.5 mg tablet RxNorm: 507303 1 Tablet(s) PO QD , , 12/29/2017 05/18/2018 In active Coumadin 5 mg tablet RxNorm: 972030 1 Tablet(s) PO Mon, Fri, Fri, Sun 12/29/2017 01/26/2018 In active cyclobenzaprine 10 m g tablet RxNorm: 147878 1 Tablet(s) PO QD as needed 12/29/2017 01/22/2018 In active clindamycin HCl 300 mg capsule RxNorm: 458769 1 Capsule(s) PO TID 12/26/2017 12/25/2017 Inactive Imitrex 50 mg tablet RxNorm: 866757 1 Tablet(s) PO at headache. repeat in 2 hours if no relief. no more than 2 tabs per day 12/26/2017 01/01/2018 Inactive clindamycin HCl 300 mg capsule RxNorm: 254981 1 Capsule(s) PO TID 12/26/2017 01/04/2018 Inactive Zithromax Z-Juan Francisco 250 mg tablet RxNorm: 495282 Tablet(s) PO take as directed 12/25/2017 12/25/2017 In active promethazine 12.5 mg tablet RxNorm: 244885 1 Tablet(s) PO Q6H 12/25/2017 01/22/2018 Inactive clindamycin HCl 300 mg capsule RxNorm: 734802 1 Capsule(s) PO TID 12/11/2017 12/17/2017 Inactive Vistaril 25 mg capsule RxNorm: 422246 1 Capsule(s) PO TID as needed for anxiet y 12/04/2017 05/18/2018 In active cholestyramine (with sugar) 4 gram oral powder RxNorm: 696517 1 Unit Dose PO QD 12/04/2017 05/18/2018 In active Coumadin 7.5 mg tablet RxNorm: 932227 1 Tablet(s) PO QD 12/04/2017 12/28/2017 Inactive Coumadin 5 mg tablet RxNorm: 979252 1 Tablet(s) PO Friday through Friday12/04/2017 12/28/2017 In active hydrocodone 10 mg-ac etaminophen 325 mg tablet RxNorm: 702204 1 Tablet(s) PO Q4-6H as needed for pain 12/01/2017 02/23/2018 Inactive hydrocodone 10 mg-ac etaminophen 325 mg tablet RxNorm: 626208 1 Tablet(s) PO Q4-6H as needed for pain 11/03/2017 11/30/2017 Inactive cyclobenzaprine 10 m g tablet RxNorm: 984685 1 Tablet(s) PO QD as needed 10/30/2017 12/28/2017 In active cholestyramine (with sugar) 4 gram oral powder RxNorm: 752598 1 Unit Dose PO QD 10/30/2017 11/28/2017 In active amoxicillin 875 mg t ablet RxNorm: 504764 1 Tablet(s) PO BID 10/08/2017 10/07/2017 Inactive amoxicillin 875 mg t ablet RxNorm: 722648 1 Tablet(s) PO BID 10/08/2017 10/17/2017 Inactive penicillin V potassi um 500 mg tablet RxNorm: 916564 1 Tablet(s) PO BID 10/06/2017 10/07/2017 In active hydrocodone 10 mg-ac etaminophen 325 mg tablet RxNorm: 052290 1 Tablet(s) PO Q4-6H as needed for pain 10/06/2017 11/02/2017 Inactive hydrocodone 10 mg-ac etaminophen 325 mg tablet RxNorm: 488386 1 Tablet(s) PO Q4-6H as needed for pain 10/06/2017 12/31/2018 Inactive Vigamox 0.5 % eye drops RxNorm: 291786 1 Drop(s) ophthalmic (eye) TID ONLY ADMI NISTER IF INFECTION 10/03/2017 10/02/2017 Inactive Vigamox 0.5 % eye drops RxNorm: 127973 1 Drop(s) ophthalmic (eye) TID ONLY ADMI NISTER IF INFECTION 10/03/2017 10/09/2017 Inactive cholestyramine (with sugar) 4 gram oral powder RxNorm: 599759 1 Unit Dose PO QD 09/23/2017 10/30/2017 In active acetazolamide 125 mg tablet RxNorm: 753167 1 Tablet(s) PO BID 09/23/2017 12/21/2017 Inactive Coumadin 5 mg tablet RxNorm: 707126 1 Tablet(s) PO QD FRIDAY THROUGH Friday09/17/2017 11/04/2017 In active mupirocin 2 % topica l ointment RxNorm: 612826 1 Application TOP TID 09/10/2017 11/04/2017 Inactive hydrocodone 10 mg-ac etaminophen 325 mg tablet RxNorm: 223765 1 Tablet(s) PO Q4-6H as needed for pain 09/08/2017 10/05/2017 Inactive Questran 4 gram powd er for susp in a packet RxNorm: 303882 MIX ONE PACKET IN 6 O UNCES OF APPLE SAUCE OR OTHER SOFT FOOD AND EAT ONCE DAILY 09/02/2017 11/04/2017 Inactive Diflucan 150 mg tablet RxNorm: 170848 1 Tablet(s) PO QW as needed 08/14/2017 01/21/2018 Inactive hydrocodone 10 mg-ac etaminophen 325 mg tablet RxNorm: 532661 1 Tablet(s) PO Q4-6H as needed for pain 08/11/2017 09/07/2017 Inactive Tamiflu 75 mg capsule RxNorm: 840569 1 Capsule(s) PO QD 08/11/2017 08/10/2017 Inactive Tamiflu 75 mg capsule RxNorm: 542682 1 Capsule(s) PO QD 08/11/2017 08/20/2017 Inactive Coumadin 5 mg tablet RxNorm: 496396 1 Tablet(s) PO QD FRIDAY THROUGH Friday07/22/2017 09/16/2017 In active Coumadin 5 mg tablet RxNorm: 820809 TAKE ONE TABLET BY MOUTH ONCE DAILY THROUGH Friday07/16/2017 07/21/2017 Inactive cyclobenzaprine 10 m g tablet RxNorm: 710920 1 Tablet(s) PO QD as needed 07/15/2017 10/30/2017 In active hydrocodone 10 mg-ac etaminophen 325 mg tablet RxNorm: 996432 1 Tablet(s) PO Q4-6H as needed for pain 07/14/2017 08/10/2017 Inactive warfarin 5 mg tablet RxNorm: 471541 1 Tablet(s) PO Fri Sat Jamee nt is due for PT/INR 06/18/2017 07/15/2017 Inactive Questran Light 4 gra m powder for susp in a packet RxNorm: 6620195 1 PO QD 06/18/2017 11/04/2017 In active cyclobenzaprine 10 m g tablet RxNorm: 130449 1 Tablet(s) PO QD as needed 06/18/2017 07/14/2017 In active hydrocodone 10 mg-ac etaminophen 325 mg tablet RxNorm: 040234 1 Tablet(s) PO Q4-6H as needed for pain 06/18/2017 07/13/2017 Inactive Lunesta 1 mg tablet RxNorm: 726233 1 Tablet(s) PO QHS as needed 05/27/2017 06/25/2017 Inactive Zithromax Z-Juan Francisco 250 mg tablet RxNorm: 989177 1 Tablet(s) PO Take a s directed 05/27/2017 11/04/2017 In active ProAir HFA 90 mcg/ac tuation aerosol inhaler RxNorm: 754745 2 Puff(s) INH Q4H 05/27/2017 01/19/2019 In active ProAir HFA 90 mcg/ac tuation aerosol inhaler RxNorm: 446892 2 Puff(s) INH Q4H 05/27/2017 05/26/2017 In active promethazine 6.25 mg -codeine 10 mg/5 mL syrup RxNorm: 987444 5 Milliliter(s) PO Q4 H as needed 05/27/2017 11/04/2017 Inactive Diflucan 150 mg tablet RxNorm: 057458 1 Tablet(s) PO QW as needed 05/26/2017 05/25/2017 Inactive cyclobenzaprine 10 m g tablet RxNorm: 363331 1 Tablet(s) PO QD as needed 05/20/2017 06/18/2017 In active Lunesta 2 mg tablet RxNorm: 243051 1 Tablet(s) PO QHS 05/20/2017 05/27/2017 Inactive Zithromax Z-Juan Francisco 250 mg tablet RxNorm: 017973 Tablet(s) PO As Direc liane 05/12/2017 05/19/2017 In active cyclobenzaprine 5 mg tablet RxNorm: 205918 1 Tablet(s) PO QPM 03/28/2017 05/19/2017 Inactive Vistaril 25 mg capsule RxNorm: 372507 1 Capsule(s) PO TID as needed for anxiet y 03/28/2017 09/23/2017 In active Questran 4 gram powd er for susp in a packet RxNorm: 858255 1 Unit(s) PO QD 03/06/2017 06/18/2017 In active Cipro 500 mg tablet RxNorm: 174613 1 Tablet(s) PO BID 02/27/2017 02/26/2017 Inactive Pyridium 200 mg tablet RxNorm: 7522067 1 Tablet(s) PO TID for bladder spasms 02/27/2017 03/31/2017 In active Cipro 500 mg tablet RxNorm: 454967 1 Tablet(s) PO BID 02/27/2017 03/05/2017 Inactive Levsin 0.125 mg tablet RxNorm: 8718600 1 Tablet(s) PO QID as needed for spasm 02/25/2017 11/04/2017 In active tamsulosin 0.4 mg ca psule RxNorm: 477693 1 Capsule(s) PO QPM 02/25/2017 03/26/2017 Inactive tamsulosin 0.4 mg ca psule RxNorm: 531825 1 Capsule(s) PO QPM 02/25/2017 02/24/2017 Inactive Pyridium 100 mg tablet RxNorm: 8829863 1 Tablet(s) PO TID as needed 02/21/2017 03/31/2017 In active acetazolamide 125 mg tablet RxNorm: 100372 1 Tablet(s) PO BID 02/07/2017 09/23/2017 Inactive Questran 4 gram powd er for susp in a packet RxNorm: 393185 1 Unit(s) PO QD 02/06/2017 03/06/2017 In active cyclobenzaprine 5 mg tablet RxNorm: 395758 1 Tablet(s) PO QPM 02/05/2017 03/27/2017 Inactive BuSpar 5 mg tablet RxNorm: 454480 1 Tablet(s) PO BID 02/03/2017 03/31/2017 Inactive Diflucan 150 mg tablet RxNorm: 150289 1 Tablet(s) PO QW as needed 01/15/2017 05/26/2017 Inactive Valtrex 1 gram tablet RxNorm: 178708 1 Tablet(s) PO TID 01/13/2017 01/19/2017 Inactive Vistaril 25 mg capsule RxNorm: 936189 1 Capsule(s) PO TID as needed for anxiet y 01/13/2017 03/27/2017 In active hydrocodone 10 mg-ac etaminophen 325 mg tablet RxNorm: 652260 1 Tablet(s) PO Q4-6H as needed for pain 01/13/2017 06/17/2017 Inactive Questran 4 gram powd er for susp in a packet RxNorm: 047169 1 Unit(s) PO QD 01/13/2017 09/23/2017 In active acetazolamide 125 mg tablet RxNorm: 752809 1 Tablet(s) PO BID 01/13/2017 02/06/2017 Inactive methotrexate (PF) 20 mg/0.4 mL subcutaneous auto-injector RxNorm: 3495652 Milliliter(s) SQ QW 12/26/2016 01/05/2017 Inactive Compazine 10 mg tablet RxNorm: 895105 1 Tablet(s) PO TID as needed for nausea 12/18/2016 11/04/2017 In active hydrocodone 10 mg-ac etaminophen 325 mg tablet RxNorm: 533688 1 Tablet(s) PO Q4-6H as needed for pain 12/17/2016 01/12/2017 Inactive Questran 4 gram powd er for susp in a packet RxNorm: 202097 1 Unit(s) PO QD 12/17/2016 01/13/2017 In active cyclobenzaprine 5 mg tablet RxNorm: 550005 1 Tablet(s) PO QPM 12/17/2016 02/05/2017 Inactive Questran Light 4 gra m powder for susp in a packet RxNorm: 0390499 1 PO QD 11/29/2016 06/17/2017 In active Zofran ODT 4 mg disi ntegrating tablet RxNorm: 309267 1 Tablet(s) PO Q4H as needed for nausea 11/29/2016 12/17/2016 Inactive methotrexate sodium 2.5 mg tablet RxNorm: 820821 4 Tablet(s) PO week 1 then 5 tablets po week 2 then 6 tablets weekly 11/27/2016 12/25/2016 Inactive warfarin 7.5 mg tablet RxNorm: 614676 1 Tablet(s) PO three times weekly 11/14/2016 03/31/2017 In active warfarin 7.5 mg tablet RxNorm: 178887 1 Tablet(s) PO three times weekly 11/13/2016 11/13/2016 In active Diflucan 150 mg tablet RxNorm: 998281 1 Tablet(s) PO QW as needed 11/05/2016 01/14/2017 Inactive Vistaril 25 mg capsule RxNorm: 120156 1 Capsule(s) PO TID as needed for anxiet y 11/04/2016 11/03/2016 In active Coumadin 5 mg tablet RxNorm: 816669 1 Tablet(s) PO Friday through Friday11/04/2016 06/18/2017 In active acetazolamide 125 mg tablet RxNorm: 564603 1 Tablet(s) PO BID 11/04/2016 01/13/2017 Inactive sumatriptan 100 mg t ablet RxNorm: 193505 1 Tablet(s) PO at hea dache onset. May repeat in 2 hours if headache remains 11/04/2016 11/04/2017 Inactive Vistaril 25 mg capsule RxNorm: 953629 1 Capsule(s) PO TID as needed for anxiet y 11/04/2016 01/12/2017 In active hydrocodone 10 mg-ac etaminophen 325 mg tablet RxNorm: 152519 1 Tablet(s) PO Q4-6H as needed for pain 11/04/2016 12/16/2016 Inactive Coumadin 5 mg tablet RxNorm: 127005 TAKE ONE TABLET BY MOUTH ON SUN., FRI., FRI., AND FRI., AND TAKE ONE AND ONE-HALF TABLETS FRI., ., AND 10/16/2016 10/25/2016 In active Coumadin 5 mg tablet RxNorm: 417178 1 Tablet(s) PO Friday through Friday10/15/2016 11/03/2016 In active hydrocodone 10 mg-ac etaminophen 325 mg tablet RxNorm: 045916 1 Tablet(s) PO Q4-6H as needed for pain 10/14/2016 11/03/2016 Inactive hydrocodone 10 mg-ac etaminophen 325 mg tablet RxNorm: 307401 1 Tablet(s) PO Q4-6H as needed for pain 09/20/2016 10/13/2016 Inactive warfarin 7.5 mg tablet RxNorm: 802159 1 Tablet(s) PO three times weekly 09/20/2016 11/12/2016 In active Diflucan 150 mg tablet RxNorm: 332515 1 Tablet(s) PO QW as needed 08/20/2016 11/04/2016 Inactive acetazolamide 125 mg tablet RxNorm: 479017 1 Tablet(s) PO BID 08/20/2016 11/04/2016 Inactive Diflucan 150 mg tablet RxNorm: 346593 1 Tablet(s) PO QW as needed 08/20/2016 08/19/2016 Inactive Vistaril 25 mg capsule RxNorm: 800071 Capsule(s) TAKE ONE CAPSULE BY MOUTH THR EE TIMES DAILY NEEDED FOR ANXIETY 08/19/2016 11/04/2016 Inactive hydrocodone 10 mg-ac etaminophen 325 mg tablet RxNorm: 221972 1 Tablet(s) PO Q4-6H as needed for pain 08/05/2016 09/19/2016 Inactive Diflucan 150 mg tablet RxNorm: 356678 1 Tablet(s) PO QW as needed 07/19/2016 08/19/2016 Inactive tizanidine 4 mg tablet RxNorm: 964230 1-2 Tablet(s) PO QHS as needed for muscl e spasm and sleep 06/03/2016 06/10/2016 Inactive Questran Light 4 gra m powder for susp in a packet RxNorm: 4756208 1 PO QD 05/14/2016 08/11/2016 In active Macrobid 100 mg capsule RxNorm: 415083 1 Capsule(s) PO BID 04/23/2016 05/02/2016 Inactive mupirocin 2 % topica l ointment RxNorm: 843405 Apply topically to af fected area 2-3 times daily 04/17/2016 07/07/2016 Inactive Vistaril 25 mg capsule RxNorm: 590694 TAKE ONE CAPSULE BY MOUTH THREE TIMES DA LOLI NEEDED FOR ANXIETY 04/17/2016 11/04/2016 Inactive Diflucan 150 mg tablet RxNorm: 296013 1 Tablet(s) PO QW as needed 04/16/2016 07/18/2016 Inactive cyclobenzaprine 5 mg tablet RxNorm: 087522 TAKE ONE TABLET BY [facility] ONCE DAILY IN THE EVENING 03/25/2016 12/17/2016 Inactive Pyridium 100 mg tablet RxNorm: 7705672 1 Tablet(s) PO TID as needed 03/20/2016 03/19/2016 In active Diflucan 150 mg tablet RxNorm: 259495 1 Tablet(s) PO QW as needed 03/20/2016 04/15/2016 Inactive Pyridium 100 mg tablet RxNorm: 1769191 1 Tablet(s) PO TID as needed 03/20/2016 08/26/2016 In active Diflucan 150 mg tablet RxNorm: 882978 1 Tablet(s) PO QW as needed 03/19/2016 03/19/2016 Inactive Coumadin 7.5 mg tablet RxNorm: 178998 1 Tablet(s) PO QD 03/14/2016 05/12/2016 Inactive acetazolamide 125 mg tablet RxNorm: 132553 1 Tablet(s) PO BID 02/28/2016 08/20/2016 Inactive Coumadin 5 mg tablet RxNorm: 447642 1 TABLET(S) PO QD THREE TIMES A WEEK AND 1 1/2 TAB (7.5MG) FOUR TIMES A WEEK 02/28/2016 03/13/2016 Inactive Questran Light 4 gra m powder for susp in a packet RxNorm: 2729518 1 PO QD 02/13/2016 05/12/2016 In active Diflucan 150 mg tablet RxNorm: 381454 1 Tablet(s) PO QW as needed 01/19/2016 03/11/2016 Inactive Diflucan 150 mg tablet RxNorm: 030281 1 Tablet(s) PO QW as needed 01/18/2016 01/18/2016 Inactive promethazine 25 mg t ablet RxNorm: 967470 1 Tablet(s) PO Q4H as needed for nausea 12/05/2015 12/17/2016 In active Imitrex 100 mg tablet RxNorm: 431522 1 Tablet(s) PO at headache onset and may repeat in 2 hours if needed 12/05/2015 03/31/2017 Inactive Diflucan 150 mg tablet RxNorm: 670213 1 Tablet(s) PO QW as needed 11/24/2015 01/17/2016 Inactive Diflucan 150 mg tablet RxNorm: 226026 1 Tablet(s) PO QW as needed 11/21/2015 11/23/2015 Inactive Coumadin 5 mg tablet RxNorm: 024536 1 Tablet(s) PO QD three times a week and 1 1/2 tab (7.5mg) four times a week 11/13/2015 02/01/2016 Inactive Questran Light 4 gra m powder for susp in a packet RxNorm: 046231 1 PO QD 11/13/2015 02/10/2016 In active acetazolamide 125 mg tablet RxNorm: 404601 1 Tablet(s) PO BID 11/13/2015 02/10/2016 Inactive amoxicillin 875 mg t ablet RxNorm: 519303 1 Tablet(s) PO BID 11/09/2015 11/18/2015 Inactive Coumadin 7.5 mg tablet RxNorm: 828570 1 Tablet(s) PO on and 10/26/2015 10/25/2015 In active Coumadin 7.5 mg tablet RxNorm: 411968 1 Tablet(s) PO on and 10/26/2015 11/12/2015 In active Coumadin 5 mg tablet RxNorm: 801126 1 Tablet(s) PO Friday, Friday, Friday and Friday. 1.5 tablets Friday, and Friday. 10/26/2015 10/25/2015 Inactive Coumadin 5 mg tablet RxNorm: 019097 1 Tablet(s) PO Friday, Friday, Friday , and Friday. Take 1 1/2 on Friday, and Friday10/26/2015 11/12/2015 Inactive Coumadin 7.5 mg tablet RxNorm: 708481 1 Tablet(s) PO on and 10/26/2015 10/26/2015 In active Coumadin 5 mg tablet RxNorm: 430715 1 Tablet(s) PO Friday, Friday, Friday and Friday. 1.5 tablets Friday, and Friday. 10/26/2015 02/14/2016 Inactive Vistaril 25 mg capsule RxNorm: 643300 1 Capsule(s) PO TID as needed for anxiet y 10/10/2015 04/06/2016 In active cyclobenzaprine 5 mg tablet RxNorm: 579039 1 Tablet(s) PO QPM 10/10/2015 03/24/2016 Inactive Vistaril 25 mg capsule RxNorm: 403048 1 Capsule(s) PO TID as needed for anxiet y 10/10/2015 10/09/2015 In active cyclobenzaprine 5 mg tablet RxNorm: 524836 1 Tablet(s) PO QPM 10/10/2015 10/09/2015 Inactive Coumadin 5 mg tablet RxNorm: 037189 1 Tablet(s) PO Friday, Friday, Friday and Friday. 1.5 tablets Friday, and Friday. 10/02/2015 10/01/2015 Inactive Coumadin 5 mg tablet RxNorm: 266624 1 Tablet(s) PO Friday, Friday, Friday and Friday. 1.5 tablets Friday, and Friday. 10/02/2015 10/25/2015 Inactive amoxicillin 500 mg t ablet RxNorm: 952539 1 Tablet(s) PO TID 10/02/2015 10/11/2015 Inactive hydrocodone 10 mg-ac etaminophen 325 mg tablet RxNorm: 288034 1 Tablet(s) PO Q4-6H as needed for pain 10/02/2015 08/04/2016 Inactive Diflucan 150 mg tablet RxNorm: 781214 1 Tablet(s) PO QW as needed 10/02/2015 10/01/2015 Inactive amoxicillin 500 mg t ablet RxNorm: 878496 1 Tablet(s) PO TID 10/02/2015 10/01/2015 Inactive Diflucan 150 mg tablet RxNorm: 859726 1 Tablet(s) PO QW as needed 10/02/2015 10/09/2015 Inactive Coumadin 5 mg tablet RxNorm: 335092 1 Tablet(s) PO Mon.,Wed.,Fri., Sat. and Sun. 09/14/2015 10/01/2015 Inactive acetazolamide 125 mg tablet RxNorm: 123669 1 Tablet(s) PO BID 09/14/2015 11/12/2015 Inactive hydrocodone 10 mg-ac etaminophen 325 mg tablet RxNorm: 480609 1 Tablet(s) PO Q4-6H as needed for pain 09/01/2015 10/01/2015 Inactive Vistaril 25 mg capsule RxNorm: 006176 1 Capsule(s) PO TID as needed for anxiet y 08/24/2015 09/22/2015 In active baclofen 10 mg tablet RxNorm: 199962 1/2 Tablet(s) PO QAM and 1 tablet at bed time 07/27/2015 10/09/2015 Inactive Vistaril 25 mg capsule RxNorm: 935373 1 Capsule(s) PO BID 07/24/2015 08/22/2015 Inactive Savella 12.5 mg (5)- 25 mg(8)-50mg(42) tablets in a dose pack RxNorm: 136248 Tablet(s) PO as directed 07/10/2015 07/26/2015 Inactive hydrocodone 10 mg-ac etaminophen 325 mg tablet RxNorm: 005925 1 Tablet(s) PO Q6H as needed for pain 06/29/2015 08/10/2015 Inactive Coumadin 7.5 mg tablet RxNorm: 108632 1 Tablet(s) PO on and 06/21/2015 10/25/2015 In active Vistaril 25 mg capsule RxNorm: 248961 1 Capsule(s) PO BID 06/20/2015 07/24/2015 Inactive Cymbalta 30 mg capsu le,delayed release RxNorm: 004950 1 Capsule(s) PO QD 06/08/2015 07/09/2015 In active Coumadin 5 mg tablet RxNorm: 237213 1 Tablet(s) PO Mon.,Wed.,Fri., Sat. and Sun. 06/08/2015 07/07/2015 Inactive Coumadin 5 mg tablet RxNorm: 229344 1 Tablet(s) PO Mon.,Fri.,Fri., Sat. and Sun. 05/24/2015 06/07/2015 Inactive Coumadin 7.5 mg tablet RxNorm: 687454 1 Tablet(s) PO on and 05/24/2015 06/20/2015 In active Coumadin 7.5 mg tablet RxNorm: 665674 1 Tablet(s) PO on Friday No Start Date Active Vitamin B12 1000mcg Tablet RxNorm: 1/2 Tablet(s) PO QD No Start Date Active Bystolic 10 mg tablet RxNorm: 565310 3 Tablet(s) PO QAM No Start Date Active Vitamin D3 5,000 uni t tablet RxNorm: 707140 1 Tablet(s) PO QD No Start Date Active Bystolic 5 mg tablet RxNorm: 280792 1 Tablet(s) PO NOON No Start Date Active sumatriptan 100 mg t ablet RxNorm: 839079 1 Tablet(s) PO at hea dache onset. May repeat in 2 hours if headache remains No Start Date 11/03/2016 Inactive warfarin 7.5 mg tablet RxNorm: 841437 1 Tablet(s) PO three times weekly No Start Date 09/19/2016 Inactive ondansetron HCl 4 mg tablet RxNorm: 331645 1 Tablet(s) PO Q4H as needed for nausea No Start Date 02/23/2018 Inactive Imitrex 100 mg tablet RxNorm: 000096 1 Tablet(s) PO at headache onset and may repeat in 2 hours if needed No Start Date 12/04/2015 Inactive Vitamin B12 1000mcg Tablet RxNorm: 1/2 Tablet(s) PO on , hurs, Sat and Sun and 1 tab all other days No Start Date 04/01/2018 Inactive baclofen 10 mg tablet RxNorm: 283035 1/2 Tablet(s) PO QAM and 1 tablet at bed time No Start Date 07/26/2015 Inactive tizanidine 4 mg tablet RxNorm: 738795 1-2 Tablet(s) PO QHS as needed for muscl e spasm and sleep No Start Date 06/02/2016 Inactive Flexeril 5 mg tablet RxNorm: 946207 1 Tablet(s) PO QD No Start Date 10/09/2015 Inactive methotrexate (PF) 20 mg/0.4 mL subcutaneous auto-injector RxNorm: 6033620 SQ QW No Start Date 12/25/2016 Inactive Bystolic 5 mg tablet RxNorm: 114053 1 Tablet(s) PO as needed No Start Date 03/15/2018 Inactive Questran Light 4 gra m powder for susp in a packet RxNorm: 094814 1 PO QD No Start Date 11/12/2015 Inactive Bystolic 10 mg tablet RxNorm: 997472 1 Tablet(s) PO QAM No Start Date 11/04/2017 Inactive warfarin 5 mg tablet RxNorm: 555950 1 Tablet(s) PO Fri Sat Sun No Start Date 06/17/2017 Inactive hydrocodone 10 mg-ac etaminophen 325 mg tablet RxNorm: 392966 1 Tablet(s) PO 4-6hou rs as needed for pain No Start Date 08/31/2015 Inactive cyclobenzaprine 5 mg tablet RxNorm: 384665 1 Tablet(s) PO QPM No Start Date 12/16/2016 Inactive Lovenox 100 mg/mL carmona bcutaneous syringe RxNorm: 542078 1 Milliliter(s) SQ QD No Start Date 06/07/2015 Inactive Levsin 0.125 mg tablet RxNorm: 8562383 1 Tablet(s) PO QID as needed for spasm No Start Date 02/24/2017 Inactive Savella 12.5 mg (5)- 25 mg(8)-50mg(42) tablets in a dose pack RxNorm: 633350 Tablet(s) PO as directed No Start Date 07/09/2015 Inactive Coumadin 10 mg tablet RxNorm: 949247 1 Tablet(s) PO QD No Start Date 2015 Inactive tramadol 50 mg tablet RxNorm: 958494 1 Tablet(s) PO TID as needed for pain No Start Date 03/31/2017 Inactive BuSpar 5 mg tablet RxNorm: 956045 1 Tablet(s) PO BID No Start Date 02/02/2017 Inactive Vistaril 25 mg capsule RxNorm: 826221 1 Capsule(s) PO BID No Start Date 06/19/2015 Inactive Tessalon Perles 100 mg capsule RxNorm: 241575 1 Capsule(s) PO TID a s needed for cough No Start Date 01/19/2019 Inactive promethazine 12.5 mg tablet RxNorm: 331349 1 Tablet(s) PO Q6H as needed No Start Date 04/22/2018 Inactive Coumadin 7.5 mg tablet RxNorm: 678526 1 Tablet(s) PO Fri and Friday No Start Date 03/13/2016 Inactive Imitrex 50 mg tablet RxNorm: 796038 1 Tablet(s) PO at headache. repeat in 2 hours if no relief. no more than 2 tabs per day No Start Date 12/25/2017 Inactive acetazolamide 125 mg tablet RxNorm: 773891 1 Tablet(s) PO BID No Start Date 09/13/2015 Inactive methotrexate (PF) 12 .5 mg/0.4 mL subcutaneous auto-injector RxNorm: 6033252 1 Milliliter(s) SQ QW No Start Date 03/31/2017 Inactive Bystolic 10 mg tablet RxNorm: 885863 1 Tablet(s) PO QAM No Start Date 03/25/2018 Inactive Zithromax Z-Juan Francisco 250 mg tablet RxNorm: 115295 Tablet(s) PO As Direc liane No Start Date 05/11/2017 Inactive Bystolic 20 mg tablet RxNorm: 670924 1 Tablet(s) PO QD No Start Date 03/15/2018 Inactive Questran 4 gram powd er for susp in a packet RxNorm: 851323 1 Unit(s) PO QD No Start Date 12/16/2016 Inactive Vitamin D3 1,000 uni t tablet RxNorm: 130211 1 Tablet(s) PO QD No Start Date 04/01/2018 Inactive Coumadin 5 mg tablet RxNorm: 896395 1 Tablet(s) PO Friday through Friday No Start Date 03/13/2016 Inactive warfarin 5 mg tablet RxNorm: 838603 1 Tablet(s) PO four days per week No Start Date 04/01/2018 Inactive ProAir HFA 90 mcg/ac tuation aerosol inhaler RxNorm: 466440 2 Puff(s) INH Q4H as needed No Start Date 01/19/2019 Inactive Bystolic 5 mg tablet RxNorm: 107925 1 Tablet(s) PO QHS No Start Date 03/25/2018 Inactive Compazine 10 mg tablet RxNorm: 589582 1 Tablet(s) PO TID as needed for nausea No Start Date 12/17/2016 Inactive Pyridium 200 mg tablet RxNorm: 8704981 1 Tablet(s) PO TID for bladder spasms No Start Date 02/26/2017 Inactive hydrocodone 10 mg-ac etaminophen 325 mg tablet RxNorm: 403782 1 Tablet(s) PO as nee ded No Start Date 06/28/2015 Inactive warfarin 7.5 mg tablet RxNorm: 768012 1 Tablet(s) PO on Friday and No Start Date 04/01/2018 Inactive promethazine 25 mg t ablet RxNorm: 400301 1 Tablet(s) PO Q4H as needed for nausea No Start Date 12/04/2015 Inactive Lovenox 30 mg/0.3 mL subcutaneous syringe RxNorm: 171247 1 Milliliter(s) SQ QD No Start Date [...] 01/19/2019 COUGH ICD-10: R05 ICD-9: 786.2 01/19/2019 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 ICD-10: Z79.01 ICD-9: [...] and perineal pain ICD-10: R10 .2 ICD-9: VGS3102 02/10/2017 Hematuria, unspecified ICD-10: R31.9 ICD-9: 599.70 [...] Code Result Date ANTI STREPTOLYSIN O TITER(ASO) 64657 ASO Titr 110 IU/mL 9 MYCOPLASMA ANTIBODY, IFA [id number] Mycoplas Ab IgG 1:64 01/20/2019 MYCOPLASMA ANTIBODY, IFA [id number] Mycoplas Ab IgM <1:10 01/20/2019 MYCOPLASMA ANTIBODY, IFA [id number] Mycoplasma Intp See Below 01/20/2019 LEGIONELLA 0995012 Legio adore Ab <1:128 01/20/2019 HEPATIC FUNCTION PANEL A 38807 Total Protein 6.3 g/dL 01/19/2019 HEPATIC FUNCTION PANEL A 87065 AST 16 U/L 01/19/2019 HEPATIC FUNCTION PANEL A 34747 ALK PHOS 52 U/L 01/19/2019 HEPATIC FUNCTION PANEL A 59432 Bili Total 0.2 mg/dL 01/19/2019 HEPATIC FUNCTION PANEL A 39345 ALT 20 U/L 01/19/2019 HEPATIC FUNCTION PANEL A 33574 ALBUMIN 4.3 g/dL 01/19/2019 HEPATIC FUNCTION PANEL A 23877 Bili Direct 0.1 mg/dL 01/19/2019 PT 4041589 PT 27.5 Seconds 01/19/2019 PT 9632817 INR 2.6 01/19/2019 COMPLETE BLOOD COUNT 9939655 WBC 11.1 10e9/L 01/19/2019 COMPLETE BLOOD COUNT 7194491 RBC 4.14 10e12/L 9 COMPLETE BLOOD COUNT 9012509 HEMOGLOBIN 13.9 g/dL 01/19/2019 COMPLETE BLOOD COUNT 0123348 HEMATOCRIT 40.7 % 01/19/2019 COMPLETE BLOOD COUNT 5305281 MCV 98.3 fL 01/19/2019 COMPLETE BLOOD COUNT 4108276 MCH 33.6 pg 01/19/2019 COMPLETE BLOOD COUNT 1061192 MCHC 34.2 g/dL 01/19/2019 COMPLETE BLOOD COUNT 6778140 PLATELET COUNT 334 10e9/L 01/19/2019 COMPLETE BLOOD COUNT 2342947 Mean Plt Volume 8.9 fL 01/19/2019 COMPLETE BLOOD COUNT 0679875 Neut Auto 60.2 % 01/19/2019 COMPLETE BLOOD COUNT 6940965 Lymph Auto 32.5 % 01/19/2019 COMPLETE BLOOD COUNT 9314717 [place] Auto 6.1 % 01/19/2019 COMPLETE BLOOD COUNT 7350207 RDW 12.5 % 01/19/2019 COMPLETE BLOOD COUNT 3524967 Eos Auto 1.0 % 01/19/2019 COMPLETE BLOOD COUNT 8693952 Baso Auto 0.2 % 01/19/2019 COMPLETE BLOOD COUNT 5290523 Neutrophil Abs 6.68 10e9/L 01/19/2019 COMPLETE BLOOD COUNT 5770438 Lymphocyte Abs 3.61 10e9/L 01/19/2019 COMPLETE BLOOD COUNT 1327000 Monocyte Abs 0.68 10e9/L 01/19/2019 COMPLETE BLOOD COUNT 2307790 Eosinophil Abs 0.11 10e9/L 01/19/2019 COMPLETE BLOOD COUNT 9191676 RDW-SD 43.4 fL 01/19/2019 COMPLETE BLOOD COUNT 3666864 Basophil Abs 0.02 10e9/L 01/19/2019 COMPLETE BLOOD COUNT 8106968 WBC 7.4 10e9/L 12/18/2018 COMPLETE BLOOD COUNT 3400185 RBC 4.32 10e12/L 9 COMPLETE BLOOD COUNT 0180278 HEMOGLOBIN 14.2 g/dL 12/18/2018 COMPLETE BLOOD COUNT 5688087 HEMATOCRIT 42.0 % 12/18/2018 COMPLETE BLOOD COUNT 9549816 MCV 97.2 fL 12/18/2018 COMPLETE BLOOD COUNT 9444899 MCH 32.9 pg 12/18/2018 COMPLETE BLOOD COUNT 1154405 MCHC 33.8 g/dL 12/18/2018 COMPLETE BLOOD COUNT 3438291 PLATELET COUNT 273 10e9/L 12/18/2018 COMPLETE BLOOD COUNT 9124973 Mean Plt Volume 9.4 fL 12/18/2018 COMPLETE BLOOD COUNT 8101388 Neut Auto 57.7 % 12/18/2018 COMPLETE BLOOD COUNT 0526128 Lymph Auto 34.8 % 12/18/2018 COMPLETE BLOOD COUNT 4559763 [place] Auto 6.4 % 12/18/2018 COMPLETE BLOOD COUNT 7446641 RDW 12.6 % 12/18/2018 COMPLETE BLOOD COUNT 5367235 Eos Auto 0.8 % 12/18/2018 COMPLETE BLOOD COUNT 1313271 Baso Auto 0.3 % 12/18/2018 COMPLETE BLOOD COUNT 4217131 Neutrophil Abs 4.27 10e9/L 12/18/2018 COMPLETE BLOOD COUNT 2546748 Lymphocyte Abs 2.58 10e9/L 12/18/2018 COMPLETE BLOOD COUNT 4012741 Monocyte Abs 0.47 10e9/L 12/18/2018 COMPLETE BLOOD COUNT 3156209 Eosinophil Abs 0.06 10e9/L 12/18/2018 COMPLETE BLOOD COUNT 4951875 RDW-SD 43.8 fL 12/18/2018 COMPLETE BLOOD COUNT 3491066 Basophil Abs 0.02 10e9/L 12/18/2018 GFR CALC 5085684 GFR Non Afr Amr >60 mL/min 12/18/2018 GFR CALC 7514662 GFR Afr Amr >60 mL/min 12/18/2018 COMPREHENSIVE METABOLIC 03178 AST 33 U/L 12/18/2018 COMPREHENSIVE METABOLIC 20287 ALT 60 U/L 12/18/2018 COMPREHENSIVE METABOLIC 43452 BUN 9 mg/dL 12/18/2018 COMPREHENSIVE METABOLIC 29797 ALBUMIN 4.3 g/dL 12/18/2018 COMPREHENSIVE METABOLIC 29828 CHLORIDE 104 mmol/L 12/18/2018 COMPREHENSIVE METABOLIC 71974 Bili Total 0.3 mg/dL 12/18/2018 COMPREHENSIVE METABOLIC 84377 ALK PHOS 63 U/L 12/18/2018 COMPREHENSIVE METABOLIC 70886 SODIUM 139 mmol/L 12/18/2018 COMPREHENSIVE METABOLIC 22015 CREATININE 0.55 mg/dL 12/18/2018 COMPREHENSIVE METABOLIC 31608 CALCIUM 9.0 mg/dL 12/18/2018 COMPREHENSIVE METABOLIC 39115 POTASSIUM 3.9 mmol/L 12/18/2018 COMPREHENSIVE METABOLIC 37690 Total Protein 6.4 g/dL 12/18/2018 COMPREHENSIVE METABOLIC 07158 Glucose 83 mg/dL 12/18/2018 COMPREHENSIVE METABOLIC 76884 Bicarbonate 27 mmol/L 12/18/2018 COMPREHENSIVE METABOLIC 74655 AGAP 8 mmol/L 12/18/2018 ERYTHROCYTE SEDIMENTATION RATE 66788 Sed Rate 17 mm/hr 12/04/2018 MEAN GLUC 2521905 Calc M zach Gluc 108 mg/dL 12/03/2018 VITAMIN B 12 88773 VITAM IN B12 329 pg/mL 12/03/2018 COMPREHENSIVE METABOLIC 32767 AST 18 U/L 12/03/2018 COMPREHENSIVE METABOLIC 34734 ALT 21 U/L 12/03/2018 COMPREHENSIVE METABOLIC 26682 BUN 11 mg/dL 12/03/2018 COMPREHENSIVE METABOLIC 64994 ALBUMIN 4.5 g/dL 12/03/2018 COMPREHENSIVE METABOLIC 14602 CHLORIDE 106 mmol/L 12/03/2018 COMPREHENSIVE METABOLIC 38782 Bili Total 0.4 mg/dL 12/03/2018 COMPREHENSIVE METABOLIC 68256 ALK PHOS 49 U/L 12/03/2018 COMPREHENSIVE METABOLIC 38956 SODIUM 138 mmol/L 12/03/2018 COMPREHENSIVE METABOLIC 20749 CREATININE 0.61 mg/dL 12/03/2018 COMPREHENSIVE METABOLIC 73459 CALCIUM 9.2 mg/dL 12/03/2018 COMPREHENSIVE METABOLIC 48605 POTASSIUM 3.7 mmol/L 12/03/2018 COMPREHENSIVE METABOLIC 82388 Total Protein 6.8 g/dL 12/03/2018 COMPREHENSIVE METABOLIC 77380 Glucose 94 mg/dL 12/03/2018 COMPREHENSIVE METABOLIC 77354 Bicarbonate 25 mmol/L 12/03/2018 COMPREHENSIVE METABOLIC 25399 AGAP 7 mmol/L 12/03/2018 FREE T4 21261 T4 Free 0.96 ng/dL 12/03/2018 ASSAY TRIIODOTHYRONINE (T3) 48096 T3 Total 1.02 ng/mL 12/03/2018 GFR CALC 6604093 GFR Non Afr Amr >60 mL/min 12/03/2018 GFR CALC 5123983 GFR Afr Amr >60 mL/min 12/03/2018 GLYCOSYLATED HEMOGLOBIN TEST 74685 Hgb A1c 89766-7 5.4 % 12/03/2018 VITAMIN D TOTAL (25 HYDROXY) 01071 Vitamin D 25 OH 11.1 ng/mL 12/03/2018 IRON 43220 Iron 106 ug/dL 12/03/2018 THYROID STIMULATING HORMONE 63328 TSH 0.978 uIU/mL 9 COMPLETE BLOOD COUNT 5085916 WBC 9.4 10e9/L 12/03/2018 COMPLETE BLOOD COUNT 2227208 RBC 4.41 10e12/L 9 COMPLETE BLOOD COUNT 9117175 HEMOGLOBIN 14.5 g/dL 12/03/2018 COMPLETE BLOOD COUNT 8701506 HEMATOCRIT 43.0 % 12/03/2018 COMPLETE BLOOD COUNT 2773919 MCV 97.5 fL 12/03/2018 COMPLETE BLOOD COUNT 1912220 MCH 32.9 pg 12/03/2018 COMPLETE BLOOD COUNT 7492249 MCHC 33.7 g/dL 12/03/2018 COMPLETE BLOOD COUNT 9992640 PLATELET COUNT 336 10e9/L 12/03/2018 COMPLETE BLOOD COUNT 4069675 Mean Plt Volume 9.1 fL 12/03/2018 COMPLETE BLOOD COUNT 9865851 Neut Auto 56.4 % 12/03/2018 COMPLETE BLOOD COUNT 3403683 Lymph Auto 35.6 % 12/03/2018 COMPLETE BLOOD COUNT 6622096 [place] Auto 6.8 % 12/03/2018 COMPLETE BLOOD COUNT 4715415 RDW 12.6 % 12/03/2018 COMPLETE BLOOD COUNT 1617589 Eos Auto 1.0 % 12/03/2018 COMPLETE BLOOD COUNT 1154160 Baso Auto 0.2 % 12/03/2018 COMPLETE BLOOD COUNT 2896725 Neutrophil Abs 5.30 10e9/L 12/03/2018 COMPLETE BLOOD COUNT 3534296 Lymphocyte Abs 3.35 10e9/L 12/03/2018 COMPLETE BLOOD COUNT 2389237 Monocyte Abs 0.64 10e9/L 12/03/2018 COMPLETE BLOOD COUNT 8816146 Eosinophil Abs 0.09 10e9/L 12/03/2018 COMPLETE BLOOD COUNT 2699962 RDW-SD 44.3 fL 12/03/2018 COMPLETE BLOOD COUNT 0703389 Basophil Abs 0.02 10e9/L 12/03/2018 FERRITIN 26805 FERRITIN 87.8 ng/mL 12/03/2018 PT 6166261 PT 23.1 Seconds 11/30/2018 PT 3218136 INR 2.0 11/30/2018 ANTI STREPTOLYSIN O TITER(ASO) 63942 ASO Titr 117 IU/mL 9 COMPLETE BLOOD COUNT 9966027 WBC 10.7 10e9/L 11/11/2018 COMPLETE BLOOD COUNT 7009819 RBC 4.42 10e12/L 9 COMPLETE BLOOD COUNT 1995794 HEMOGLOBIN 14.5 g/dL 11/11/2018 COMPLETE BLOOD COUNT 8165594 HEMATOCRIT 43.1 % 11/11/2018 COMPLETE BLOOD COUNT 5187768 MCV 97.5 fL 11/11/2018 COMPLETE BLOOD COUNT 1338849 MCH 32.8 pg 11/11/2018 COMPLETE BLOOD COUNT 8857881 MCHC 33.6 g/dL 11/11/2018 COMPLETE BLOOD COUNT 5699409 PLATELET COUNT 324 10e9/L 11/11/2018 COMPLETE BLOOD COUNT 8857910 Mean Plt Volume 9.2 fL 11/11/2018 COMPLETE BLOOD COUNT 4526523 Neut Auto 62.3 % 11/11/2018 COMPLETE BLOOD COUNT 3802359 Lymph Auto 30.8 % 11/11/2018 COMPLETE BLOOD COUNT 3815352 [place] Auto 6.1 % 11/11/2018 COMPLETE BLOOD COUNT 5938867 RDW 12.7 % 11/11/2018 COMPLETE BLOOD COUNT 9884515 Eos Auto 0.7 % 11/11/2018 COMPLETE BLOOD COUNT 1638231 Baso Auto 0.1 % 11/11/2018 COMPLETE BLOOD COUNT 3468287 Neutrophil Abs 6.67 10e9/L 11/11/2018 COMPLETE BLOOD COUNT 9335897 Lymphocyte Abs 3.30 10e9/L 11/11/2018 COMPLETE BLOOD COUNT 0205905 Monocyte Abs 0.65 10e9/L 11/11/2018 COMPLETE BLOOD COUNT 5817900 Eosinophil Abs 0.07 10e9/L 11/11/2018 COMPLETE BLOOD COUNT 7670438 RDW-SD 44.3 fL 11/11/2018 COMPLETE BLOOD COUNT 3889837 Basophil Abs 0.01 10e9/L 11/11/2018 PT 0609482 PT 23.4 Seconds 10/27/2018 PT 0407180 INR 2.0 10/27/2018 COMPLETE BLOOD COUNT 7315282 WBC 8.1 10e9/L 09/25/2018 COMPLETE BLOOD COUNT 6421095 RBC 4.37 10e12/L 9 COMPLETE BLOOD COUNT 5197601 HEMOGLOBIN 14.5 g/dL 09/25/2018 COMPLETE BLOOD COUNT 5341152 HEMATOCRIT 42.1 % 09/25/2018 COMPLETE BLOOD COUNT 7659346 MCV 96.3 fL 09/25/2018 COMPLETE BLOOD COUNT 3782247 MCH 33.2 pg 09/25/2018 COMPLETE BLOOD COUNT 9102823 MCHC 34.4 g/dL 09/25/2018 COMPLETE BLOOD COUNT 1562729 PLATELET COUNT 313 10e9/L 09/25/2018 COMPLETE BLOOD COUNT 7950822 Mean Plt Volume 9.2 fL 09/25/2018 COMPLETE BLOOD COUNT 1336864 Neut Auto 57.4 % 09/25/2018 COMPLETE BLOOD COUNT 4883595 Lymph Auto 35.0 % 09/25/2018 COMPLETE BLOOD COUNT 4254100 [place] Auto 6.3 % 09/25/2018 COMPLETE BLOOD COUNT 1173363 RDW 12.6 % 09/25/2018 COMPLETE BLOOD COUNT 5985997 Eos Auto 1.1 % 09/25/2018 COMPLETE BLOOD COUNT 1814581 Baso Auto 0.2 % 09/25/2018 COMPLETE BLOOD COUNT 7801400 Neutrophil Abs 4.65 10e9/L 09/25/2018 COMPLETE BLOOD COUNT 3630013 Lymphocyte Abs 2.84 10e9/L 09/25/2018 COMPLETE BLOOD COUNT 7160173 Monocyte Abs 0.51 10e9/L 09/25/2018 COMPLETE BLOOD COUNT 9036359 Eosinophil Abs 0.09 10e9/L 09/25/2018 COMPLETE BLOOD COUNT 3474058 RDW-SD 43.0 fL 09/25/2018 COMPLETE BLOOD COUNT 2829230 Basophil Abs 0.02 10e9/L 09/25/2018 COMPREHENSIVE METABOLIC 05963 AST 15 U/L 09/25/2018 COMPREHENSIVE METABOLIC 03650 ALT 20 U/L 09/25/2018 COMPREHENSIVE METABOLIC 44670 BUN 9 mg/dL 09/25/2018 COMPREHENSIVE METABOLIC 68555 ALBUMIN 4.3 g/dL 09/25/2018 COMPREHENSIVE METABOLIC 39076 CHLORIDE 107 mmol/L 09/25/2018 COMPREHENSIVE METABOLIC 62063 Bili Total 0.4 mg/dL 09/25/2018 COMPREHENSIVE METABOLIC 75112 ALK PHOS 51 U/L 09/25/2018 COMPREHENSIVE METABOLIC 82107 SODIUM 139 mmol/L 09/25/2018 COMPREHENSIVE METABOLIC 75961 CREATININE 0.61 mg/dL 09/25/2018 COMPREHENSIVE METABOLIC 33039 CALCIUM 9.1 mg/dL 09/25/2018 COMPREHENSIVE METABOLIC 94093 POTASSIUM 3.7 mmol/L 09/25/2018 COMPREHENSIVE METABOLIC 27055 Total Protein 6.3 g/dL 09/25/2018 COMPREHENSIVE METABOLIC 17316 Glucose 92 mg/dL 09/25/2018 COMPREHENSIVE METABOLIC 78107 Bicarbonate 24 mmol/L 09/25/2018 COMPREHENSIVE METABOLIC 88032 AGAP 8 mmol/L 09/25/2018 PT 6086018 PT 25.0 Seconds 09/25/2018 PT [id number] INR 2.2 09/25/2018 GFR CALC 6894808 GFR Non Afr Amr >60 mL/min 09/25/2018 GFR CALC 1446056 GFR Afr Amr >60 mL/min 09/25/2018 PT 4474938 PT 25.7 Seconds 05/12/2018 PT 5668151 INR 2.3 05/12/2018 PT 7629826 PT TNP:Improper Specimen 04/30/2018 PT [id number] INR TNP:Improper Specimen 04/30/2018 PT 1313154 PT 26.3 Seconds 02/05/2018 PT [id number] INR 2.4 02/05/2018 ANTI STREPTOLYSIN O TITER(ASO) 10781 ASO Titr 118 IU/mL 8 VITAMIN B 12 63082 VITAM IN B12 302 pg/mL 12/02/2017 VITAMIN D TOTAL (25 HYDROXY) 78744 Vitamin D 25 OH 27.0 ng/mL 12/02/2017 PT 7705589 PT 17.3 Seconds 12/01/2017 PT 2181606 INR 1.4 12/01/2017 ANTI STREPTOLYSIN O TITER(ASO) 32715 ASO Titr 127 IU/mL 8 ANTI STREPTOLYSIN O TITER(ASO) 12320 ASO Titr 130 IU/mL 8 ANTINUCLEAR ANTIBODY SCREEN 12798 MAGALIE Ab Scr <1:80 10/02/2017 RA FACTOR 48150 RA FACTOR <20 IU/mL 10/02/2017 RA FACTOR 21265 RA Facto r Intp Negative 10/02/2017 VITAMIN D TOTAL (25 HYDROXY) 80795 Vitamin D 25 OH 18 ng/mL 8 IRON 72106 Iron 70 ug/dL 10/01/2017 VITAMIN B 12 29162 VITAM IN B12 377 pg/mL 10/01/2017 FREE T4 96055 T4 Free 1.31 ng/dL 10/01/2017 URIC ACID 25696 URIC ACID 3.9 mg/dL 10/01/2017 FERRITIN 90728 FERRITIN 68.0 ng/mL 10/01/2017 THYROID STIMULATING HORMONE 48536 TSH 1.401 uIU/mL 8 GLYCOSYLATED HEMOGLOBIN TEST 31007 Hgb A1c 25266-8 5.4 % 10/01/2017 FOLIC ACID 62678 Folate >24.0 ng/mL 10/01/2017 ASSAY TRIIODOTHYRONINE (T3) 31848 T3 Total 1.0 ng/mL 10/01/2017 ERYTHROCYTE SEDIMENTATION RATE 25041 Sed Rate 5 mm/hr 10/01/2017 MEAN GLUC 9450921 Calc M zach Gluc 108 mg/dL 10/01/2017 PT 2947833 PT 18.6 Seconds 08/07/2017 PT [id number] INR 1.5 08/07/2017 COMPREHENSIVE METABOLIC 51329 AST 21 U/L 08/07/2017 COMPREHENSIVE METABOLIC 72326 ALT 37 U/L 08/07/2017 COMPREHENSIVE METABOLIC 64709 BUN 14 mg/dL 08/07/2017 COMPREHENSIVE METABOLIC 22963 ALBUMIN 4.5 g/dL 08/07/2017 COMPREHENSIVE METABOLIC 78542 CHLORIDE 104 mmol/L 08/07/2017 COMPREHENSIVE METABOLIC 37418 Bili Total 0.3 mg/dL 08/07/2017 COMPREHENSIVE METABOLIC 08240 ALK PHOS 55 U/L 08/07/2017 COMPREHENSIVE METABOLIC 56505 SODIUM 139 mmol/L 08/07/2017 COMPREHENSIVE METABOLIC 57613 CREATININE 0.77 mg/dL 08/07/2017 COMPREHENSIVE METABOLIC 29964 CALCIUM 9.2 mg/dL 08/07/2017 COMPREHENSIVE METABOLIC 58915 POTASSIUM 3.7 mmol/L 08/07/2017 COMPREHENSIVE METABOLIC 88768 Total Protein 6.5 g/dL 08/07/2017 COMPREHENSIVE METABOLIC 89645 Glucose 101 mg/dL 08/07/2017 COMPREHENSIVE METABOLIC 22994 Bicarbonate 25 mmol/L 08/07/2017 COMPREHENSIVE METABOLIC 89233 AGAP 10 mmol/L 08/07/2017 COMPLETE BLOOD COUNT 0170312 WBC 9.4 10e9/L 08/07/2017 COMPLETE BLOOD COUNT 3713791 RBC 4.38 10e12/L 8 COMPLETE BLOOD COUNT 9310356 HEMOGLOBIN 14.5 g/dL 08/07/2017 COMPLETE BLOOD COUNT 9149002 HEMATOCRIT 42.7 % 08/07/2017 COMPLETE BLOOD COUNT 6829941 MCV 97.5 fL 08/07/2017 COMPLETE BLOOD COUNT 6637913 MCH 33.1 pg 08/07/2017 COMPLETE BLOOD COUNT 1530047 MCHC 34.0 g/dL 08/07/2017 COMPLETE BLOOD COUNT 2665502 PLATELET COUNT 313 10e9/L 08/07/2017 COMPLETE BLOOD COUNT 8819018 Mean Plt Volume 8.6 fL 08/07/2017 COMPLETE BLOOD COUNT 5437282 Neut Auto 51.6 % 08/07/2017 COMPLETE BLOOD COUNT 1257664 Lymph Auto 40.0 % 08/07/2017 COMPLETE BLOOD COUNT 9900045 [place] Auto 6.8 % 08/07/2017 COMPLETE BLOOD COUNT 0706772 RDW 12.9 % 08/07/2017 COMPLETE BLOOD COUNT 2438889 Eos Auto 1.4 % 08/07/2017 COMPLETE BLOOD COUNT 0683634 Baso Auto 0.2 % 08/07/2017 COMPLETE BLOOD COUNT 6678501 Neutrophil Abs 4.85 10e9/L 08/07/2017 COMPLETE BLOOD COUNT 7650411 Lymphocyte Abs 3.76 10e9/L 08/07/2017 COMPLETE BLOOD COUNT 7852659 Monocyte Abs 0.64 10e9/L 08/07/2017 COMPLETE BLOOD COUNT 5107404 Eosinophil Abs 0.13 10e9/L 08/07/2017 COMPLETE BLOOD COUNT 1831067 RDW-SD 45.1 fL 08/07/2017 COMPLETE BLOOD COUNT 0185233 Basophil Abs 0.02 10e9/L 08/07/2017 GFR CALC 4467463 GFR Non Afr Amr >60 mL/min 08/07/2017 GFR CALC GFR Afr Amr >60 mL/min 08/07/2017 COMPLETE BLOOD COUNT 6009021 WBC 9.2 10e9/L 07/15/2017 COMPLETE BLOOD COUNT 6489262 RBC 4.70 10e12/L 8 COMPLETE BLOOD COUNT 2760404 HEMOGLOBIN 15.4 g/dL 07/15/2017 COMPLETE BLOOD COUNT 4738103 HEMATOCRIT 46.2 % 07/15/2017 COMPLETE BLOOD COUNT 3849605 MCV 98.3 fL 07/15/2017 COMPLETE BLOOD COUNT 5947988 MCH 32.8 pg 07/15/2017 COMPLETE BLOOD COUNT 0728391 MCHC 33.3 g/dL 07/15/2017 COMPLETE BLOOD COUNT 9468854 PLATELET COUNT 348 10e9/L 07/15/2017 COMPLETE BLOOD COUNT 5594818 Mean Plt Volume 8.9 fL 07/15/2017 COMPLETE BLOOD COUNT 0808801 Neut Auto 60.6 % 07/15/2017 COMPLETE BLOOD COUNT 0687674 Lymph Auto 30.9 % 07/15/2017 COMPLETE BLOOD COUNT 4321684 [place] Auto 7.1 % 07/15/2017 COMPLETE BLOOD COUNT 0292479 RDW 13.1 % 07/15/2017 COMPLETE BLOOD COUNT 3376620 Eos Auto 1.2 % 07/15/2017 COMPLETE BLOOD COUNT 3156208 Baso Auto 0.2 % 07/15/2017 COMPLETE BLOOD COUNT 0339466 Neutrophil Abs 5.58 10e9/L 07/15/2017 COMPLETE BLOOD COUNT 7374742 Lymphocyte Abs 2.84 10e9/L 07/15/2017 COMPLETE BLOOD COUNT 5287321 Monocyte Abs 0.65 10e9/L 07/15/2017 COMPLETE BLOOD COUNT 3974584 Eosinophil Abs 0.11 10e9/L 07/15/2017 COMPLETE BLOOD COUNT 0602413 RDW-SD 46.1 fL 07/15/2017 COMPLETE BLOOD COUNT 4044414 Basophil Abs 0.02 10e9/L 07/15/2017 GFR CALC 6515331 GFR Non Afr Amr >60 mL/min 07/15/2017 GFR CALC 7341661 GFR Afr Amr >60 mL/min 07/15/2017 COMPREHENSIVE METABOLIC 76607 AST 16 U/L 07/15/2017 COMPREHENSIVE METABOLIC 38289 ALT 20 U/L 07/15/2017 COMPREHENSIVE METABOLIC 34494 BUN 13 mg/dL 07/15/2017 COMPREHENSIVE METABOLIC 00396 ALBUMIN 4.6 g/dL 07/15/2017 COMPREHENSIVE METABOLIC 65850 CHLORIDE 106 mmol/L 07/15/2017 COMPREHENSIVE METABOLIC 11770 Bili Total 0.3 mg/dL 07/15/2017 COMPREHENSIVE METABOLIC 50618 ALK PHOS 50 U/L 07/15/2017 COMPREHENSIVE METABOLIC 05282 SODIUM 137 mmol/L 07/15/2017 COMPREHENSIVE METABOLIC 09883 CREATININE 0.62 mg/dL 07/15/2017 COMPREHENSIVE METABOLIC 89253 CALCIUM 9.2 mg/dL 07/15/2017 COMPREHENSIVE METABOLIC 83282 POTASSIUM 3.8 mmol/L 07/15/2017 COMPREHENSIVE METABOLIC 86928 Total Protein 6.7 g/dL 07/15/2017 COMPREHENSIVE METABOLIC 75857 Glucose 83 mg/dL 07/15/2017 COMPREHENSIVE METABOLIC 56620 Bicarbonate 30 mmol/L 07/15/2017 COMPREHENSIVE METABOLIC 73504 AGAP 1 mmol/L 07/15/2017 THYROID STIMULATING HORMONE 93452 TSH 2.111 uIU/mL 201 7 COMPREHENSIVE METABOLIC 03565 AST 33 U/L 08/27/2016 COMPREHENSIVE METABOLIC 51413 ALT 55 U/L 08/27/2016 COMPREHENSIVE METABOLIC 47083 BUN 11 mg/dL 08/27/2016 COMPREHENSIVE METABOLIC 16323 ALBUMIN 4.6 g/dL 08/27/2016 COMPREHENSIVE METABOLIC 85284 CHLORIDE 103 mmol/L 08/27/2016 COMPREHENSIVE METABOLIC 16613 Bili Total 0.3 mg/dL 08/27/2016 COMPREHENSIVE METABOLIC 19861 ALK PHOS 60 U/L 08/27/2016 COMPREHENSIVE METABOLIC 31484 SODIUM 140 mmol/L 08/27/2016 COMPREHENSIVE METABOLIC 51474 CREATININE 0.69 mg/dL 08/27/2016 COMPREHENSIVE METABOLIC 51231 CALCIUM 9.3 mg/dL 08/27/2016 COMPREHENSIVE METABOLIC 82950 POTASSIUM 3.7 mmol/L 08/27/2016 COMPREHENSIVE METABOLIC 21684 Total Protein 6.8 g/dL 08/27/2016 COMPREHENSIVE METABOLIC 27201 Glucose 79 mg/dL 08/27/2016 COMPREHENSIVE METABOLIC 70301 Bicarbonate 25 mmol/L 08/27/2016 COMPREHENSIVE METABOLIC 66202 AGAP 12 mmol/L 08/27/2016 COMPLETE BLOOD COUNT 1064878 WBC 9.4 10e9/L 08/27/2016 COMPLETE BLOOD COUNT 5988359 RBC 4.35 10e12/L 7 COMPLETE BLOOD COUNT 4810661 HEMOGLOBIN 14.2 g/dL 08/27/2016 COMPLETE BLOOD COUNT 7481867 HEMATOCRIT 41.5 % 08/27/2016 COMPLETE BLOOD COUNT 1917409 MCV 95.4 fL 08/27/2016 COMPLETE BLOOD COUNT 9552747 MCH 32.6 pg 08/27/2016 COMPLETE BLOOD COUNT 8055560 MCHC 34.2 g/dL 08/27/2016 COMPLETE BLOOD COUNT 6173883 PLATELET COUNT 289 10e9/L 08/27/2016 COMPLETE BLOOD COUNT 3718722 Mean Plt Volume 9.8 fL 08/27/2016 COMPLETE BLOOD COUNT 8160374 Neut Auto 47.7 % 08/27/2016 COMPLETE BLOOD COUNT 6073947 Lymph Auto 44.2 % 08/27/2016 COMPLETE BLOOD COUNT 0734387 [place] Auto 6.6 % 08/27/2016 COMPLETE BLOOD COUNT 2855027 RDW 12.9 % 08/27/2016 COMPLETE BLOOD COUNT 4301109 Eos Auto 1.4 % 08/27/2016 COMPLETE BLOOD COUNT 6211517 Baso Auto 0.1 % 08/27/2016 COMPLETE BLOOD COUNT 1102825 Neutrophil Abs 4.48 10e9/L 08/27/2016 COMPLETE BLOOD COUNT 9971121 Lymphocyte Abs 4.15 10e9/L 08/27/2016 COMPLETE BLOOD COUNT 1680174 Monocyte Abs 0.62 10e9/L 08/27/2016 COMPLETE BLOOD COUNT 2328043 Eosinophil Abs 0.13 10e9/L 08/27/2016 COMPLETE BLOOD COUNT 5638982 RDW-SD 43.9 fL 08/27/2016 COMPLETE BLOOD COUNT 9286339 Basophil Abs 0.01 10e9/L 08/27/2016 PT 6909470 PT 15.0 Seconds 08/27/2016 PT 7489029 INR 1.2 08/27/2016 GFR CALC 9756325 GFR Afr Amr >60 mL/min 08/27/2016 GFR CALC 6127163 GFR Non Afr Amr >60 mL/min 08/27/2016 GFR CALC 2775643 GFR Non Afr Amr >60 mL/min 05/24/2016 GFR CALC 5116293 GFR Afr Amr >60 mL/min 05/24/2016 COMPREHENSIVE METABOLIC 94188 AST 19 U/L 05/24/2016 COMPREHENSIVE METABOLIC 48442 ALT 23 U/L 05/24/2016 COMPREHENSIVE METABOLIC 19698 BUN 12 mg/dL 05/24/2016 COMPREHENSIVE METABOLIC 98348 ALBUMIN 4.1 g/dL 05/24/2016 COMPREHENSIVE METABOLIC 73603 CHLORIDE 105 mmol/L 05/24/2016 COMPREHENSIVE METABOLIC 41695 Bili Total 0.4 mg/dL 05/24/2016 COMPREHENSIVE METABOLIC 85737 ALK PHOS 52 U/L 05/24/2016 COMPREHENSIVE METABOLIC 41474 SODIUM 136 mmol/L 05/24/2016 COMPREHENSIVE METABOLIC 12016 CREATININE 0.61 mg/dL 05/24/2016 COMPREHENSIVE METABOLIC 49554 CALCIUM 8.8 mg/dL 05/24/2016 COMPREHENSIVE METABOLIC 82882 POTASSIUM 3.8 mmol/L 05/24/2016 COMPREHENSIVE METABOLIC 29196 Total Protein 6.2 g/dL 05/24/2016 COMPREHENSIVE METABOLIC 44066 Glucose 95 mg/dL 05/24/2016 COMPREHENSIVE METABOLIC 08846 Bicarbonate 19 mmol/L 05/24/2016 COMPREHENSIVE METABOLIC 32912 AGAP 12 mmol/L 05/24/2016 PT 7730294 PT 25.7 Seconds 05/24/2016 PT 9933609 INR 2.4 05/24/2016 PT 1995697 PT 22.2 Seconds 04/11/2016 PT 1498283 INR 2.0 04/11/2016 PT 0766718 PT 16.5 Seconds 03/13/2016 PT 0621042 INR 1.4 03/13/2016 THYROID STIMULATING HORMONE 14197 TSH 1.151 uIU/mL 6 COMPLETE BLOOD COUNT 5367882 WBC 10.0 10e9/L 03/12/2016 COMPLETE BLOOD COUNT 9706003 RBC 4.08 10e12/L 6 COMPLETE BLOOD COUNT 0556526 HEMOGLOBIN 13.5 g/dL 03/12/2016 COMPLETE BLOOD COUNT 1644188 HEMATOCRIT 38.8 % 03/12/2016 COMPLETE BLOOD COUNT 4077203 MCV 95.1 fL 03/12/2016 COMPLETE BLOOD COUNT 3314594 MCH 33.1 pg 03/12/2016 COMPLETE BLOOD COUNT 1642090 MCHC 34.8 g/dL 03/12/2016 COMPLETE BLOOD COUNT 6261185 PLATELET COUNT 282 10e9/L 03/12/2016 COMPLETE BLOOD COUNT 0898215 Mean Plt Volume 9.6 fL 03/12/2016 COMPLETE BLOOD COUNT 3089774 Neut Auto 53.5 % 03/12/2016 COMPLETE BLOOD COUNT 3300243 Lymph Auto 39.0 % 03/12/2016 COMPLETE BLOOD COUNT 1644894 [place] Auto 5.9 % 03/12/2016 COMPLETE BLOOD COUNT 4729050 RDW 12.6 % 03/12/2016 COMPLETE BLOOD COUNT 3648734 Eos Auto 1.4 % 03/12/2016 COMPLETE BLOOD COUNT 4450313 Baso Auto 0.2 % 03/12/2016 COMPLETE BLOOD COUNT 0779329 Neutrophil Abs 5.35 10e9/L 03/12/2016 COMPLETE BLOOD COUNT 5807265 Lymphocyte Abs 3.90 10e9/L 03/12/2016 COMPLETE BLOOD COUNT 9111597 Monocyte Abs 0.59 10e9/L 03/12/2016 COMPLETE BLOOD COUNT 5879567 Eosinophil Abs 0.14 10e9/L 03/12/2016 COMPLETE BLOOD COUNT 9446325 RDW-SD 42.7 fL 03/12/2016 COMPLETE BLOOD COUNT 9428812 Basophil Abs 0.02 10e9/L 03/12/2016 COMPREHENSIVE METABOLIC 59164 AST 13 U/L 03/12/2016 COMPREHENSIVE METABOLIC 81022 ALT 11 U/L 03/12/2016 COMPREHENSIVE METABOLIC 77480 BUN 11 mg/dL 03/12/2016 COMPREHENSIVE METABOLIC 92571 ALBUMIN 4.1 g/dL 03/12/2016 COMPREHENSIVE METABOLIC 59092 CHLORIDE 107 mmol/L 03/12/2016 COMPREHENSIVE METABOLIC 14400 Bili Total 0.3 mg/dL 03/12/2016 COMPREHENSIVE METABOLIC 60873 ALK PHOS 41 U/L 03/12/2016 COMPREHENSIVE METABOLIC 90554 SODIUM 137 mmol/L 03/12/2016 COMPREHENSIVE METABOLIC 70176 CREATININE 0.62 mg/dL 03/12/2016 COMPREHENSIVE METABOLIC 00870 CALCIUM 9.0 mg/dL 03/12/2016 COMPREHENSIVE METABOLIC 53061 POTASSIUM 3.8 mmol/L 03/12/2016 COMPREHENSIVE METABOLIC 35719 Total Protein 6.1 g/dL 03/12/2016 COMPREHENSIVE METABOLIC 95900 Glucose 95 mg/dL 03/12/2016 COMPREHENSIVE METABOLIC 46766 Bicarbonate 23 mmol/L 03/12/2016 COMPREHENSIVE METABOLIC 54038 AGAP 7 mmol/L 03/12/2016 GFR CALC 2754477 GFR Non Afr Amr >60 mL/min 03/12/2016 GFR CALC 8986458 GFR Afr Amr >60 mL/min 03/12/2016 PT 8680188 PT 14.4 Seconds 02/12/2016 PT 9104716 INR 1.2 02/12/2016 PT 4895288 PT 26.1 Seconds 02/01/2016 PT 6764691 INR 2.4 02/01/2016 [place]IR[place] VCA G/[place] + [place] + [place] [address]|8 6665 x 2|18262 EBV VCA Ab IgG 3.70 11/13/2015 [place] VIRUS VCA G/M + [place] + [place] [address]|8 6665 x 2|68862 EBV VCA Ab IgM 0.47 11/13/2015 EB [place]IR[place] VCA G/M + [place] + [place] [address]|8 6665 x 2|29917 EBV Nuclear Ab 2.24 11/13/2015 EB VIRUS VCA G/M + [place] + [place] [address]|8 6665 x 2|31673 EBV Early Ab 1.37 11/13/2015 PT 6470268 PT 18.9 Seconds 11/10/2015 PT 1726997 INR 1.6 11/10/2015 PT 2298741 PT 16.8 Seconds 09/29/2015 PT 3240399 INR 1.4 09/29/2015 COMPLETE BLOOD COUNT 9682298 WBC 9.6 10e9/L 09/29/2015 COMPLETE BLOOD COUNT 4123987 RBC 4.51 10e12/L 6 COMPLETE BLOOD COUNT 2250697 HEMOGLOBIN 14.8 g/dL 09/29/2015 COMPLETE BLOOD COUNT 3316895 HEMATOCRIT 43.3 % 09/29/2015 COMPLETE BLOOD COUNT 0046251 MCV 96.0 fL 09/29/2015 COMPLETE BLOOD COUNT 3784195 MCH 32.8 pg 09/29/2015 COMPLETE BLOOD COUNT 6907268 MCHC 34.2 g/dL 09/29/2015 COMPLETE BLOOD COUNT 2797919 PLATELET COUNT 310 10e9/L 09/29/2015 COMPLETE BLOOD COUNT 6750509 Mean Plt Volume 9.7 fL 09/29/2015 COMPLETE BLOOD COUNT 8105703 Neutrophil 60.3 % 09/29/2015 COMPLETE BLOOD COUNT 6955255 Lymph Auto % 32.4 % 09/29/2015 COMPLETE BLOOD COUNT 0962814 Monocyte Auto % 6.5 % 09/29/2015 COMPLETE BLOOD COUNT 7288988 RDW 12.8 % 09/29/2015 COMPLETE BLOOD COUNT 4350430 Eosinophil 0.7 % 09/29/2015 COMPLETE BLOOD COUNT 8053122 Basophil 0.1 % 09/29/2015 COMPLETE BLOOD COUNT 3618005 Neutrophil Abs 5.79 10e9/L 09/29/2015 COMPLETE BLOOD COUNT 0144470 Lymphoctye Abs 3.11 10e9/L 09/29/2015 COMPLETE BLOOD COUNT 1748250 Monocyte Abs 0.62 10e9/L 09/29/2015 COMPLETE BLOOD COUNT 9957833 Eosinophil Abs 0.07 10e9/L 09/29/2015 COMPLETE BLOOD COUNT 8620035 RDW-SD 43.6 fL 09/29/2015 COMPLETE BLOOD COUNT 4804369 Basophil Abs 0.01 10e9/L 09/29/2015 IRON 86320 Iron 86 ug/dL 09/29/2015 COMPLETE BLOOD COUNT 6060259 WBC 9.6 10e9/L 09/29/2015 COMPLETE BLOOD COUNT 9219552 RBC 4.51 10e12/L 6 COMPLETE BLOOD COUNT 1050091 HEMOGLOBIN 14.8 g/dL 09/29/2015 COMPLETE BLOOD COUNT 9786396 HEMATOCRIT 43.3 % 09/29/2015 COMPLETE BLOOD COUNT 7644037 MCV 96.0 fL 09/29/2015 COMPLETE BLOOD COUNT 8460624 MCH 32.8 pg 09/29/2015 COMPLETE BLOOD COUNT 5919818 MCHC 34.2 g/dL 09/29/2015 COMPLETE BLOOD COUNT 1815675 PLATELET COUNT 310 10e9/L 09/29/2015 COMPLETE BLOOD COUNT 7927272 Mean Plt Volume 9.7 fL 09/29/2015 COMPLETE BLOOD COUNT 5899061 Neutrophil 60.3 % 09/29/2015 COMPLETE BLOOD COUNT 5322661 Lymph Auto % 32.4 % 09/29/2015 COMPLETE BLOOD COUNT 6279834 Monocyte Auto % 6.5 % 09/29/2015 COMPLETE BLOOD COUNT 6049771 RDW 12.8 % 09/29/2015 COMPLETE BLOOD COUNT 2489651 Eosinophil 0.7 % 09/29/2015 COMPLETE BLOOD COUNT 8189601 Basophil 0.1 % 09/29/2015 COMPLETE BLOOD COUNT 8824302 Neutrophil Abs 5.79 10e9/L 09/29/2015 COMPLETE BLOOD COUNT 7562189 Lymphoctye Abs 3.11 10e9/L 09/29/2015 COMPLETE BLOOD COUNT 6253601 Monocyte Abs 0.62 10e9/L 09/29/2015 COMPLETE BLOOD COUNT 4262029 Eosinophil Abs 0.07 10e9/L 09/29/2015 COMPLETE BLOOD COUNT 2385807 RDW-SD 43.6 fL 09/29/2015 COMPLETE BLOOD COUNT 5475071 Basophil Abs 0.01 10e9/L 09/29/2015 PT 3020490 PT 16.8 Seconds 09/29/2015 PT 6401012 INR 1.4 09/29/2015 IRON 82860 Iron 86 ug/dL 09/29/2015 PT [place] [facility] 86118 PRO T PAULIE 19.4 SEC 07/27/2015 PT [facility] 54674 INR M CMC 1.7 07/27/2015 PT [facility] 76929 PRO T PAULIE 21.4 SEC 06/21/2015 PT [facility] 75042 INR M CMC 1.9 06/21/2015 PT [facility] 88285 PRO T PAULIE 24.5 SEC 05/24/2015 PT [facility] 19388 INR M CMC 2.3 05/24/2015 Review of [...] murmurs 02/08/2019 None Full Exam - General Constitutional [...] Date URINE CULTURE/ COLON Y COUNT CPT-4: 82280 02/08/2019 ROUTINE VENIPUNCTURE CPT-4: 92650 01/19/2019 PROTHROMBIN TIME CPT-4: 66049 01/19/2019 COMPLETE CBC W/AUTO DIFF WBC CPT-4: 85723 01/19/2019 ANTISTREPTOLYSIN O T ITER CPT-4: 72481 01/19/2019 HEPATIC FUNCTION PANEL CPT-4: 30316 01/19/2019 MYCOPLASMA ANTIBODY, IFA CPT-4: 46494E2 01/19/2019 RESPIRATORY CULTURE & STAIN CPT-4: 55543 01/19/2019 STREP A ASSAY W/OPTIC CPT-4: 03876 01/19/2019 THER/PROPH/DIAG INJ SC/IM CPT-4: 10614 01/04/2019 TRIAMCINOLONE ACET I [place] NOS CPT-4: J3301 01/04/2019 ROUTINE VENIPUNCTURE CPT-4: 57494 12/18/2018 COMPLETE CBC W/AUTO DIFF WBC CPT-4: 59945 12/18/2018 COMPREHEN METABOLIC PANEL CPT-4: 13541 12/18/2018 HYDRATION IV INFUSIO N INIT CPT-4: 15594 12/16/2018 STREP A ASSAY W/OPTIC CPT-4: 13136 12/02/2018 ROUTINE VENIPUNCTURE CPT-4: 39898 11/30/2018 PT CPT-4: 7950123 11/30/2018 CEFTRIAXONE SODIUM I NJECTION CPT-4: J0696 11/30/2018 THER/PROPH/DIAG INJ SC/IM CPT-4: 00521 11/30/2018 URINE CULTURE/ COLON Y COUNT CPT-4: 89043 11/20/2018 URINALYSIS NONAUTO W /O SCOPE CPT-4: 99567 11/20/2018 CEFTRIAXONE SODIUM I NJECTION CPT-4: J0696 11/12/2018 THER/PROPH/DIAG INJ SC/IM CPT-4: 08897 11/12/2018 STREP A ASSAY W/OPTIC CPT-4: 28872 11/11/2018 CEFTRIAXONE SODIUM I NJECTION CPT-4: J0696 11/11/2018 THER/PROPH/DIAG INJ SC/IM CPT-4: 52251 11/11/2018 ROUTINE VENIPUNCTURE CPT-4: 22440 11/11/2018 ANTISTREPTOLYSIN O T ITER CPT-4: 28314 11/11/2018 COMPLETE CBC W/AUTO DIFF WBC CPT-4: 62892 11/11/2018 ROUTINE VENIPUNCTURE CPT-4: 52524 10/27/2018 PT CPT-4: 0426921 10/27/2018 THER/PROPH/DIAG INJ SC/IM CPT-4: 25185 10/09/2018 TRIAMCINOLONE ACET I [place] NOS CPT-4: J3301 10/09/2018 CEFTRIAXONE SODIUM I NJECTION CPT-4: J0696 10/08/2018 THER/PROPH/DIAG INJ SC/IM CPT-4: 17718 10/08/2018 CEFTRIAXONE SODIUM I NJECTION CPT-4: J0696 10/07/2018 THER/PROPH/DIAG INJ SC/IM CPT-4: 08025 10/07/2018 ROUTINE VENIPUNCTURE CPT-4: 65063 09/25/2018 COMPREHEN METABOLIC PANEL CPT-4: 10482 09/25/2018 COMPLETE CBC W/AUTO DIFF WBC CPT-4: 04024 09/25/2018 PT CPT-4: 3478539 09/25/2018 URINE CULTURE/ COLON Y COUNT CPT-4: 81254 09/10/2018 URINALYSIS NONAUTO W /O SCOPE CPT-4: 16679 09/10/2018 CEFTRIAXONE SODIUM I NJECTION CPT-4: J0696 09/08/2018 THER/PROPH/DIAG INJ SC/IM CPT-4: 15813 09/08/2018 ROUTINE VENIPUNCTURE CPT-4: 98006 08/14/2018 PT CPT-4: 9222921 08/14/2018 CEFTRIAXONE SODIUM I NJECTION CPT-4: J0696 07/02/2018 THER/PROPH/DIAG INJ SC/IM CPT-4: 06884 07/02/2018 THER/PROPH/DIAG INJ SC/IM CPT-4: 64895 07/02/2018 TRIAMCINOLONE ACET I NJ NOS CPT-4: J3301 07/02/2018 ROUTINE VENIPUNCTURE CPT-4: 18470 06/22/2018 ANTISTREPTOLYSIN O T ITER CPT-4: 71558 06/22/2018 ROUTINE VENIPUNCTURE CPT-4: 29057 06/17/2018 PROTHROMBIN TIME CPT-4: 76946 06/17/2018 URINE CULTURE/ COLON Y COUNT CPT-4: 85306 06/17/2018 CEFTRIAXONE SODIUM I NJECTION CPT-4: J0696 05/12/2018 THER/PROPH/DIAG INJ SC/IM CPT-4: 57683 05/12/2018 PROTHROMBIN TIME CPT-4: 94319 05/11/2018 CEFTRIAXONE SODIUM I NJECTION CPT-4: J0696 05/11/2018 THER/PROPH/DIAG INJ SC/IM CPT-4: 31343 05/11/2018 ROUTINE VENIPUNCTURE CPT-4: 66422 04/30/2018 PROTHROMBIN TIME CPT-4: 58793 04/30/2018 THER/PROPH/DIAG INJ SC/IM CPT-4: 74290 04/02/2018 TRIAMCINOLONE ACET I [place] NOS CPT-4: J3301 04/02/2018 IIV4 VACCINE 3 YRS+ IM AND UP CPT-4: 61373 03/24/2018 IMMUNIZATION ADMIN CPT- 4: 31359 03/24/2018 ROUTINE VENIPUNCTURE CPT-4: 45742 03/24/2018 PT CPT-4: 1044443 03/24/2018 PROTHROMBIN TIME CPT-4: 61350 02/24/2018 ROUTINE VENIPUNCTURE CPT-4: 60674 02/24/2018 ROUTINE VENIPUNCTURE CPT-4: 27761 02/05/2018 PROTHROMBIN TIME CPT-4: 28533 02/05/2018 URINE CULTURE/ COLON Y COUNT CPT-4: 88129 02/05/2018 CEFTRIAXONE SODIUM I NJECTION CPT-4: J0696 01/29/2018 THER/PROPH/DIAG INJ SC/IM CPT-4: 72780 01/29/2018 CEFTRIAXONE SODIUM I NJECTION CPT-4: J0696 01/28/2018 THER/PROPH/DIAG INJ SC/IM CPT-4: 52439 01/28/2018 URINALYSIS NONAUTO W /O SCOPE CPT-4: 21807 01/26/2018 URINE CULTURE/ COLON Y COUNT CPT-4: 52228 01/26/2018 ROUTINE VENIPUNCTURE CPT-4: 03944 01/01/2018 PROTHROMBIN TIME CPT-4: 83114 01/01/2018 THER/PROPH/DIAG INJ SC/IM CPT-4: 67707 12/25/2017 TRIAMCINOLONE ACET I NJ NOS CPT-4: J3301 12/25/2017 DEXAMETHASONE SODIUM PHOS CPT-4: J1100 12/25/2017 STREP A ASSAY W/OPTIC CPT-4: 06989 12/11/2017 CEFTRIAXONE SODIUM I NJECTION CPT-4: J0696 12/11/2017 THER/PROPH/DIAG INJ SC/IM CPT-4: 03080 12/11/2017 ROUTINE VENIPUNCTURE CPT-4: 67042 12/01/2017 ANTISTREPTOLYSIN O T ITER CPT-4: 43227 12/01/2017 PROTHROMBIN TIME CPT-4: 69961 12/01/2017 VITAMIN D TOTAL (25 HYDROXY) CPT-4: 49888 12/01/2017 VITAMIN B-12 CPT-4: 24159 12/01/2017 SPECIMEN HANDLING OF FICE-LAB CPT-4: 29942 11/05/2017 ROUTINE VENIPUNCTURE CPT-4: 24905 10/14/2017 ANTISTREPTOLYSIN O T ITER CPT-4: 17037 10/14/2017 ROUTINE VENIPUNCTURE CPT-4: 16655 10/06/2017 PROTHROMBIN TIME CPT-4: 69172 10/06/2017 THER/PROPH/DIAG INJ SC/IM CPT-4: 14507 10/06/2017 TRIAMCINOLONE ACET I NJ NOS CPT-4: J3301 10/06/2017 ROUTINE VENIPUNCTURE CPT-4: 27980 10/01/2017 VITAMIN B-12 CPT-4: 55875 10/01/2017 FOLIC ACID CPT-4: 84743 10/01/2017 ASSAY THYROID STIM H ORMONE CPT-4: 02938 10/01/2017 ASSAY OF FREE THYROXINE CPT-4: 40251 10/01/2017 ASSAY TRIIODOTHYRONI NE (T3) CPT-4: 92012 10/01/2017 ASSAY OF BLOOD/URIC ACID CPT-4: 99929 10/01/2017 RHEUMATOID FACTOR QUANT CPT-4: 65481 10/01/2017 RBC SED RATE AUTOMATED CPT-4: 45120 10/01/2017 ANTISTREPTOLYSIN O T ITER CPT-4: 76451 10/01/2017 ASSAY OF IRON CPT-4: 14421 10/01/2017 ASSAY OF FERRITIN CPT-4: 59000 10/01/2017 ANTINUCLEAR ANTIBODIES CPT-4: 49654 10/01/2017 A1C HPLC CPT-4: 15665 10/01/2017 VITAMIN D TOTAL (25 HYDROXY) CPT-4: 37182 10/01/2017 THER/PROPH/DIAG INJ SC/IM CPT-4: 74921 09/05/2017 TRIAMCINOLONE ACET I NJ NOS CPT-4: J3301 09/05/2017 URINALYSIS NONAUTO W /O SCOPE CPT-4: 90649 09/05/2017 URINE CULTURE/ COLON Y COUNT CPT-4: 66088 09/05/2017 ROUTINE VENIPUNCTURE CPT-4: 53623 09/04/2017 PROTHROMBIN TIME CPT-4: 66668 09/04/2017 ROUTINE VENIPUNCTURE CPT-4: 69188 08/07/2017 COMPLETE CBC W/AUTO DIFF WBC CPT-4: 83908 08/07/2017 COMPREHEN METABOLIC PANEL CPT-4: 51680 08/07/2017 PROTHROMBIN TIME CPT-4: 14515 08/07/2017 INFLUENZA ASSAY W/OPTIC CPT-4: 39512 07/15/2017 ROUTINE VENIPUNCTURE CPT-4: 51322 07/15/2017 COMPREHEN METABOLIC PANEL CPT-4: 29766 07/15/2017 COMPLETE CBC W/AUTO DIFF WBC CPT-4: 39068 07/15/2017 CEFTRIAXONE SODIUM I NJECTION CPT-4: J0696 07/04/2017 THER/PROPH/DIAG INJ SC/IM CPT-4: 88428 07/04/2017 THER/PROPH/DIAG INJ SC/IM CPT-4: 89339 07/04/2017 TRIAMCINOLONE ACET I NJ NOS CPT-4: J3301 07/04/2017 CEFTRIAXONE SODIUM I NJECTION CPT-4: J0696 07/02/2017 THER/PROPH/DIAG INJ SC/IM CPT-4: 91682 07/02/2017 CEFTRIAXONE SODIUM I NJECTION CPT-4: J0696 07/01/2017 THER/PROPH/DIAG INJ SC/IM CPT-4: 11942 07/01/2017 ROUTINE VENIPUNCTURE CPT-4: 40639 06/19/2017 PROTHROMBIN TIME CPT-4: 79833 06/19/2017 THER/PROPH/DIAG INJ SC/IM CPT-4: 65688 04/01/2017 TRIAMCINOLONE ACET I NJ NOS CPT-4: J3301 04/01/2017 ROUTINE VENIPUNCTURE CPT-4: 63981 02/10/2017 PROTHROMBIN TIME CPT-4: 33828 02/10/2017 URINALYSIS NONAUTO W /O SCOPE CPT-4: 03483 02/10/2017 URINE CULTURE/ COLON Y COUNT CPT-4: 91426 02/10/2017 ROUTINE VENIPUNCTURE CPT-4: 94509 02/05/2017 PROTHROMBIN TIME CPT-4: 78486 02/05/2017 THROAT CULTURE CPT-4: 73572 02/03/2017 STREP A ASSAY W/OPTIC CPT-4: 79840 01/13/2017 ROUTINE VENIPUNCTURE CPT-4: 27396 12/18/2016 PROTHROMBIN TIME CPT-4: 74727 12/18/2016 URINE CULTURE/ COLON Y COUNT CPT-4: 11665 08/27/2016 ASSAY THYROID STIM H ORMONE CPT-4: 03525 08/27/2016 COMPREHEN METABOLIC PANEL CPT-4: 90679 08/27/2016 COMPLETE CBC W/AUTO DIFF WBC CPT-4: 26578 08/27/2016 PROTHROMBIN TIME CPT-4: 84235 08/27/2016 ROUTINE VENIPUNCTURE CPT-4: 90523 08/27/2016 ROUTINE VENIPUNCTURE CPT-4: 23711 05/24/2016 COMPREHEN METABOLIC PANEL CPT-4: 94189 05/24/2016 PROTHROMBIN TIME CPT-4: 33691 05/24/2016 URINALYSIS NONAUTO W /O SCOPE CPT-4: 79635 04/23/2016 URINE CULTURE/ COLON Y COUNT CPT-4: 82457 04/23/2016 PRESCRIP TRANSMIT A ERX SY CPT-4: G8553 04/23/2016 AEROBIC WOUND CULTUR E & STN CPT-4: 45083 04/17/2016 ROUTINE VENIPUNCTURE CPT-4: 30020 04/11/2016 PROTHROMBIN TIME CPT-4: 66543 04/11/2016 ROUTINE VENIPUNCTURE CPT-4: 85078 03/12/2016 COMPLETE CBC W/AUTO DIFF WBC CPT-4: 71258 03/12/2016 COMPREHEN METABOLIC PANEL CPT-4: 66749 03/12/2016 ASSAY THYROID STIM H ORMONE CPT-4: 79557 03/12/2016 PROTHROMBIN TIME CPT-4: 98877 03/12/2016 ROUTINE VENIPUNCTURE CPT-4: 99092 02/12/2016 PROTHROMBIN TIME CPT-4: 31282 02/12/2016 ROUTINE VENIPUNCTURE CPT-4: 01955 02/01/2016 PROTHROMBIN TIME CPT-4: 94514 02/01/2016 ROUTINE VENIPUNCTURE CPT-4: 83082 01/22/2016 PROTHROMBIN TIME CPT-4: 68368 01/22/2016 ROUTINE VENIPUNCTURE CPT-4: 49825 11/10/2015 PROTHROMBIN TIME CPT-4: 70432 11/10/2015 CEFTRIAXONE SODIUM I NJECTION CPT-4: J0696 11/10/2015 THER/PROPH/DIAG INJ SC/IM CPT-4: 51162 11/10/2015 EB VIRUS VCA G/M + E BNA + EA CPT-4: 82798|90012 x 2|76033 016 THROAT CULTURE CPT-4: 43862 11/09/2015 STREP A ASSAY W/OPTIC CPT-4: 15854 11/09/2015 STREP A ASSAY W/OPTIC CPT-4: 85846 10/02/2015 ROUTINE VENIPUNCTURE CPT-4: 77237 09/29/2015 COMPLETE CBC W/AUTO DIFF WBC CPT-4: 32440 09/29/2015 ASSAY OF IRON CPT-4: 08283 09/29/2015 PROTHROMBIN TIME CPT-4: 48941 09/29/2015 ROUTINE VENIPUNCTURE CPT-4: 28518 07/27/2015 PROTHROMBIN TIME CPT-4: 73666 07/27/2015 URINALYSIS NONAUTO W /O SCOPE CPT-4: 50076 06/30/2015 URINE CULTURE/ COLON Y COUNT CPT-4: 68566 06/30/2015 ROUTINE VENIPUNCTURE CPT-4: 19153 06/21/2015 PROTHROMBIN TIME CPT-4: 07571 06/21/2015 URINE CULTURE/ COLON Y COUNT CPT-4: 33892 05/31/2015 ROUTINE VENIPUNCTURE CPT-4: 70546 05/24/2015 PROTHROMBIN TIME CPT-4: 93801 05/24/2015 URINALYSIS NONAUTO W /O SCOPE CPT-4: 46586 05/24/2015 Vital Signs Date Vital 02/08/2019 Blood [...] 1: 122/70 Code: 8480-6 BMI: 32.2 Code: 88020-2 Heart Rate 1: 88 bpm Height: 5'3" Respiratory Rate: 20 bpm SpO2: 96% Temperature: 36.8 (C ) / 98.2 (F) Weight: 182 lbs 07/23/2018 Blood Pressure 1: 132/80 Code: 8480-6 Heart Rate 1: 84 bpm Respiratory Rate: 20 bpm SpO2: 96% Temperature: 36.6 (C ) / 97.8 (F) Weight: 187 lbs 07/08/2018 Blood Pressure 1: 122/70 Code: 8480-6 BMI: 32.2 Code: 13899-7 Heart Rate 1: 88 bpm Height: 5'3" Respiratory Rate: 20 bpm Temperature: 36.6 (C ) / 97.8 (F) Weight: 182 lbs 07/02/2018 Blood Pressure 1: 124/68 Code: 8480-6 BMI: 32.8 Code: 25026-6 Heart Rate 1: 84 bpm Height: 5'3" Respiratory Rate: 20 bpm SpO2: 98% Temperature: 36.3 (C ) / 97.3 (F) Weight: 185 lbs 06/02/2018 Blood Pressure 1: 132/90 Code: 8480-6 Heart Rate 1: 84 bpm Respiratory Rate: 18 bpm SpO2: 97% Temperature: 36.6 (C ) / 97.9 (F) Weight: 180 lbs 05/11/2018 Blood Pressure 1: 124/80 Code: 8480-6 BMI: 31.7 Code: 71742-9 Heart Rate 1: 88 bpm Height: 5'3" Respiratory Rate: 20 bpm Temperature: 37.0 (C ) / 98.6 (F) Weight: 179 lbs 04/02/2018 Blood Pressure 1: 122/80 Code: 8480-6 Heart Rate 1: 78 bpm Respiratory Rate: 18 bpm SpO2: 97% Temperature: 36.2 (C ) / 97.1 (F) Weight: 181 lbs 8 oz 03/16/2018 Blood Pressure 1: 114/82 Code: 8480-6 BMI: 31.4 Code: 97619-2 Heart Rate 1: 76 bpm Height: 5'3" Respiratory Rate: 20 bpm Temperature: 37.0 (C ) / 98.6 (F) Weight: 177 lbs 02/16/2018 Blood Pressure 1: 114/72 Code: 8480-6 BMI: 31.7 Code: 53608-9 Heart Rate 1: 84 bpm Height: 5'3" Respiratory Rate: 20 bpm Temperature: 37.0 (C ) / 98.6 (F) Weight: 179 lbs 01/26/2018 Blood Pressure 1: 118/78 Code: 8480-6 BMI: 31.7 Code: 78495-1 Heart Rate 1: 80 bpm Height: 5'3" Respiratory Rate: 20 bpm SpO2: 98% Temperature: 36.4 (C ) / 97.6 (F) Weight: 179 lbs 01/01/2018 Blood Pressure 1: 112/78 Code: 8480-6 Heart Rate 1: 86 bpm Height: 5'3" Respiratory Rate: 22 bpm SpO2: 98% Temperature: 36.6 (C ) / 97.8 (F) Weight: 12/25/2017 Blood Pressure 1: 136/78 Code: 8480-6 BMI: 31.5 Code: 36788-0 Heart Rate 1: 84 bpm Height: 5'3" Respiratory Rate: 22 bpm SpO2: 98% Temperature: 36.6 (C ) / 97.9 (F) Weight: 178 lbs 12/11/2017 Blood Pressure 1: 122/74 Code: 8480-6 BMI: 31.2 Code: 88145-7 Heart Rate 1: 86 bpm Height: 5'3" Respiratory Rate: 24 bpm SpO2: 98% Temperature: 35.9 (C ) / 96.6 (F) Weight: 176 lbs 11/05/2017 Blood Pressure 1: 126/82 Code: 8480-6 BMI: 31.5 Code: 39247-7 Heart Rate 1: 84 bpm Height: 5'3" Respiratory Rate: 20 bpm SpO2: 97% Temperature: 36.8 (C ) / 98.3 (F) Weight: 178 lbs 10/06/2017 Blood Pressure 1: 114/78 Code: 8480-6 BMI: 31.4 Code: 76589-9 Heart Rate 1: 80 bpm Height: 5'3" Respiratory Rate: 20 bpm Temperature: 36.9 (C ) / 98.4 (F) Weight: 177 lbs 10/01/2017 Blood Pressure 1: 122/70 Code: 8480-6 BMI: 31.5 Code: 78976-4 Heart Rate 1: 84 bpm Height: 5'3" [...] 1: 132/78 Code: 8480-6 BMI: 32.1 Code: 77827-0 Heart Rate 1: 92 bpm Height: 5'3" Respiratory Rate: 20 bpm SpO2: 96% Temperature: 36.7 (C ) / 98.0 (F) Weight: 181 lbs 05/27/2017 Blood Pressure 1: 142/78 Code: 8480-6 Heart Rate 1: 90 bpm Height: 5'3" Respiratory Rate: 22 bpm SpO2: 98% Temperature: 36.1 (C ) / 97.0 (F) Weight: 05/20/2017 Blood Pressure 1: 122/76 Code: 8480-6 BMI: 31.2 Code: 03467-2 Heart Rate 1: 86 bpm Height: 5'3" Respiratory Rate: 20 bpm SpO2: 98% Temperature: 36.5 (C ) / 97.7 (F) Weight: 176 lbs 04/22/2017 Blood Pressure 1: 132/80 Code: 8480-6 BMI: 31.0 Code: 19418-2 Heart Rate 1: 84 bpm Height: 5'3" Respiratory Rate: 20 bpm Temperature: 36.8 (C ) / 98.2 (F) Weight: 175 lbs 04/01/2017 Blood Pressure 1: 124/70 Code: 8480-6 BMI: 30.8 Code: 21257-0 Heart Rate 1: 88 bpm Height: 5'3" Respiratory Rate: 20 bpm SpO2: 96% Temperature: 36.6 (C ) / 97.9 (F) Weight: 174 lbs 02/05/2017 Blood Pressure 1: 116/58 Code: 8480-6 Heart Rate 1: 96 bpm Height: 5'3" Respiratory Rate: 22 bpm SpO2: 99% Temperature: 36.7 (C ) / 98.1 (F) 01/13/2017 Blood Pressure 1: 136/78 Code: 8480-6 BMI: 30.3 Code: 22583-3 Heart Rate 1: 86 bpm Height: 5'3" Respiratory Rate: 18 bpm SpO2: 98% Temperature: 36.7 (C ) / 98.1 (F) Weight: 171 lbs 11/27/2016 Blood Pressure 1: 114/70 Code: 8480-6 BMI: 30.3 Code: 91546-6 Heart Rate 1: 76 bpm Height: 5'3" [...] 1: 122/78 Code: 8480-6 BMI: 31.0 Code: 92773-4 Heart Rate 1: 76 bpm Height: 5'3" Respiratory Rate: 20 bpm Temperature: 36.8 (C ) / 98.2 (F) Weight: 175 lbs 11/10/2015 Blood Pressure 1: 116/72 Code: 8480-6 BMI: 31.2 Code: 21156-5 Heart Rate 1: 76 bpm Height: 5'3" Respiratory Rate: 20 bpm Temperature: 37.2 (C ) / 98.9 (F) Weight: 176 lbs 11/09/2015 Blood Pressure 1: 12278 Code: 8480-6 Heart Rate 1: 82 bpm Respiratory Rate: 20 bpm SpO2: 96% Temperature: 36.4 (C ) / 97.6 (F) Weight: 176 lbs 10/10/2015 BMI: 31.5 Code: 72533-8 Heart Rate 1: 72 bpm Height: 5'3" Respiratory Rate: 20 bpm Temperature: 36.6 (C ) / 97.8 (F) Weight: 178 lbs 10/02/2015 Blood Pressure 1: 124/78 Code: 8480-6 Heart Rate 1: 92 bpm Respiratory Rate: 22 bpm SpO2: 96% Temperature: 36.7 (C ) / 98.1 (F) Weight: 178 lbs 07/10/2015 Blood Pressure 1: 112/60 Code: 8480-6 BMI: 33.1 Code: 24633-8 Heart Rate 1: 92 bpm Height: 5'3" Respiratory Rate: 20 bpm Temperature: 36.9 (C ) / 98.4 (F) Weight: 187 lbs 06/27/2015 Blood Pressure 1: 106/62 Code: 8480-6 Heart Rate 1: 88 bpm Respiratory Rate: 22 bpm Temperature: 37.0 (C) / 98.6 (F) Weight: 190 lbs 06/08/2015 Blood Pressure 1: 112/78 Code: 8480-6 BMI: 33.1 Code: 00616-2 Heart Rate 1: 84 bpm Height: 5'3" Respiratory Rate: 20 bpm Temperature: 37.0 (C ) / 98.6 (F) Weight: 187 lbs 05/24/2015 Blood Pressure 1: 126/82 Code: 8480-6 BMI: 33.1 Code: 45472-0 Heart Rate 1: 92 bpm Height: 5'3" Respiratory Rate: 22 bpm Temperature: 37.1 (C ) / 98.8 (F) Weight: 187 lbs Functional Status No Functional Status data History of Present Illness Symptom Name Status Resu lt Effective Date Notes Location on the left 01/04/2019 None Quality [...] Encounters Encounter Performer Loca tion Codes Date ([id number]) OFFICE/OUTPA TIENT VISIT EST Diagnosis: Unspecified urinary incontinence[ICD10: R32] Diagnosis: Irritable bowel syndrome with constipation[ICD10: K58.1] Diagnosis: Low back pain[ICD10: M54.5] Ivon BRAMBILA DO [facility] CPT-4: 54954 02/08/2019 ([id number]) OFFICE/OUTPA TIENT VISIT EST Diagnosis: Other fatigue[ICD10: R53.83] Diagnosis: COUGH[ICD10: R05] Diagnosis: Acute pharyngitis due to other specified organisms[ICD10: J02.8] 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] Diagnosis: Abnormal levels of other serum enzymes[ICD10: R74.8] Ivon SHAW [facility] CPT-4: 69381 01/19/2019 ([id number]) OFFICE/OUTPA TIENT VISIT EST Diagnosis: Otalgia, left ear[ICD10: H92.02] Diagnosis: Other fatigue[ICD10: R53.83] Ivon BRAMBILA DO [facility] CPT-4: 94049 01/04/2019 ([id number]) NURSE/OUTPAT IENT VISIT EST Diagnosis: Dehydration[ICD10: E86.0] Kristine BRAMBILA DO [facility] CPT-4: 04536 12/18/2018 ([id number]) NURSE/OUTPAT IENT VISIT EST Diagnosis: Dehydration[ICD10: E86.0] Kristine BRAMBILA DO [facility] CPT-4: 27226 12/16/2018 ([id number]) OFFICE/OUTPA TIENT VISIT EST Diagnosis: Other fatigue[ICD10: R53.83] Diagnosis: Anemia, unspecified[ICD10: D64.9] Diagnosis: Benign lipomatous neoplasm of skin and subcutaneous tissue of trunk[ICD10: D17.1] Kristine BRAMBILA DO [facility] CPT-4: 05992 12/03/2018 ([id number]) OFFICE/OUTPA TIENT VISIT EST Diagnosis: Acute pharyngitis, unspecified[ICD10: J02.9] Diagnosis: Enlarged lymph nodes, unspecified[ICD10: R59.9] Ivon SHAW [facility] CPT-4: 86084 12/02/2018 ([id number]) OFFICE/OUTPA TIENT VISIT EST Diagnosis: Encounter for therapeutic drug level monitoring[ICD10: Z51.81] 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] Diagnosis: Acute suppurative otitis media without spontaneous rupture of ear drum, left ear[ICD10: H66.002] Ivon BRAMBILA [facility] CPT-4: 64549 11/30/2018 ([id number]) NURSE/OUTPAT IENT VISIT EST Diagnosis: Dysuria[ICD10: R30.0] Kristine BRAMBILA [facility] CPT-4: 74651 11/20/2018 ([id number]) NURSE/OUTPAT IENT VISIT EST Diagnosis: Streptococcal pharyngitis[ICD10: J02.0] Kristine ROWLAND [facility] CPT-4: 41219 11/12/2018 ([id number]) OFFICE/OUTPA TIENT VISIT EST Diagnosis: Streptococcal pharyngitis[ICD10: J02.0] Lulu Navarro KRISTINE BRAMBILA [facility] CPT-4: 25568 11/11/2018 ([id number]) NURSE/OUTPAT IENT VISIT EST Diagnosis: Personal history of diseases of the blood and blood-forming organs and certain disorders involving the immune mechanism[ICD10: Z86.2] Kristine ROWLAND [facility] CPT-4: 61851 10/27/2018 ([id number]) NURSE/OUTPAT IENT VISIT EST Diagnosis: Other allergic rhinitis[ICD10: J30.89] Kristine ROWLAND [facility] CPT-4: 24305 10/09/2018 ([id number]) OFFICE/OUTPA TIENT VISIT EST Diagnosis: Acute recurrent maxillary sinusitis[ICD10: J01.01] Lulu MINER Luisa BRAMBILA [facility] CPT-4: 11071 10/08/2018 ([id number]) OFFICE/OUTPA TIENT VISIT EST Diagnosis: Acute recurrent maxillary sinusitis[ICD10: J01.01] Diagnosis: Acute pharyngitis, unspecified[ICD10: J02.9] Lulu BRAMBILA DO [facility] CPT-4: 21613 10/07/2018 ([id number]) OFFICE/OUTPA TIENT VISIT EST Diagnosis: Dizziness and giddiness[ICD10: R42] Diagnosis: Personal history of pulmonary embolism[ICD10: Z86.711] Lulu BRAMBILA DO [facility] CPT-4: 24307 09/25/2018 ([id number]) NURSE/OUTPAT IENT VISIT EST Diagnosis: Dysuria[ICD10: R30.0] Kristine BRAMBILA DO [facility] CPT-4: 94006 09/10/2018 ([id number]) OFFICE/OUTPA TIENT VISIT EST Diagnosis: Streptococcal infection, unspecified site[ICD10: A49.1] Diagnosis: Furuncle right hand[ICD10: L02.521] Diagnosis: Localized swelling, mass and lump, neck[ICD10: R22.1] Kristine ROWLAND [facility] CPT-4: 06400 09/08/2018 ([id number]) NURSE/OUTPAT IENT VISIT EST Diagnosis: Encounter for therapeutic drug level monitoring[ICD10: Z51.81] Kristine BRAMBILA [facility] CPT-4: 58129 08/14/2018 ([id number]) OFFICE/OUTPA TIENT VISIT EST Diagnosis: Acute sinusitis, unspecified[ICD10: J01.90] Diagnosis: Otalgia, left ear[ICD10: H92.02] Ivon BRAMBILA [facility] CPT-4: 08493 07/23/2018 ([id number]) OFFICE/OUTPA TIENT VISIT EST Diagnosis: Streptococcal infection, unspecified site[ICD10: A49.1] Kristine ROWLAND [facility] CPT-4: 74867 07/08/2018 ([id number]) OFFICE/OUTPA TIENT VISIT EST Diagnosis: Periapical abscess with sinus[ICD10: K04.6] Diagnosis: Streptococcal infection, unspecified site[ICD10: A49.1] Diagnosis: Localized enlarged lymph nodes[ICD10: R59.0] Ivon BALL ER DO [facility] CPT-4: 40842 07/02/2018 ([id number]) NURSE/OUTPAT IENT VISIT EST Diagnosis: Pain in unspecified joint[ICD10: M25.50] Kristine SINCLAIR NDER DO [facility] CPT-4: 49606 06/22/2018 ([id number]) NURSE/OUTPAT IENT VISIT EST Diagnosis: Paroxysmal tachycardia, unspecified[ICD10: I47.9] Diagnosis: Dysuria[ICD10: R30.0] Kristine BALLER DO [facility] CPT-4: 10677 06/17/2018 ([id number]) OFFICE/OUTPA TIENT VISIT EST Diagnosis: Acute sinusitis, unspecified[ICD10: J01.90] Ivon BALL ER DO [facility] CPT-4: 43449 06/02/2018 ([id number]) NURSE/OUTPAT IENT VISIT EST Diagnosis: Acute mastoiditis without complications, left ear[ICD10: H70.002] Kristine BALLER DO [facility] CPT-4: 14401 05/12/2018 ([id number]) OFFICE/OUTPA TIENT VISIT EST Diagnosis: Acute mastoiditis without complications, left ear[ICD10: H70.002] 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] Ivon BALL ER DO [facility] CPT-4: 03078 05/11/2018 ([id number]) NURSE/OUTPAT IENT VISIT EST Diagnosis: Personal history of diseases of the blood and blood-forming organs and certain disorders involving the immune mechanism[ICD10: Z86.2] Kristine SINCLAIR NDER DO [facility] CPT-4: 37095 04/30/2018 ([id number]) OFFICE/OUTPA TIENT VISIT EST Diagnosis: Acute sinusitis, unspecified[ICD10: J01.90] Ivon BALL ER DO [facility] CPT-4: 68347 04/02/2018 ([id number]) NURSE/OUTPAT IENT VISIT EST Diagnosis: FLU VACCINE[ICD10: Z23] Diagnosis: Encounter for therapeutic drug level monitoring[ICD10: Z51.81] Diagnosis: 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[ICD10: Z79.01] Kristine BRAMBILA DO [employer] CPT-4: 47987 03/24/2018 ([id number]) OFFICE/OUTPA TIENT VISIT EST Diagnosis: Other allergic rhinitis[ICD10: J30.89] Diagnosis: Migraine, unspecified, not intractable, without status migrainosus[ICD10: G43.909] Ivon BRAMBILA DO [employer] CPT-4: 02029 03/16/2018 ([id number]) NURSE/OUTPAT IENT VISIT EST Diagnosis: Encounter for therapeutic drug level monitoring[ICD10: Z51.81] Kristine BRAMBILA DO [employer] CPT-4: 83609 02/24/2018 OFFICE/OUTPATIENT SIT EST Diagnosis: Diarrhea, unspecified[ICD10: R19.7] Diagnosis: Abdominal distension (gaseous)[ICD10: R14.0] Diagnosis: Epigastric pain[ICD10: R10.13] Kristine BRAMBILA DO [facility] CPT-4: 27003 02/16/2018 ([id number]) NURSE/OUTPAT IENT VISIT EST 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] Diagnosis: Urinary tract infection, site not specified[ICD10: N39.0] Kristine BRAMBILA DO [facility] CPT-4: 05605 02/05/2018 ([id number]) NURSE/OUTPAT IENT VISIT EST Diagnosis: Urinary tract infection, site not specified[ICD10: N39.0] Kristine BRAMBILA DO [facility] CPT-4: 78242 01/29/2018 ([id number]) NURSE/OUTPAT IENT VISIT EST Diagnosis: Urinary tract infection, site not specified[ICD10: N39.0] Kristine BRAMBILA DO [facility] CPT-4: 85092 01/28/2018 ([id number]) OFFICE/OUTPA TIENT VISIT EST Diagnosis: Other allergic rhinitis[ICD10: J30.89] Diagnosis: Acute suppurative otitis media without spontaneous rupture of ear drum, right ear[ICD10: H66.001] Diagnosis: Contact with and (suspected) exposure to potentially hazardous body fluids[ICD10: Z77.21] Ivon BRAMBILA [employer] [facility] CPT-4: 62523 01/26/2018 ([id number]) OFFICE/OUTPA TIENT VISIT EST Diagnosis: Otalgia, left ear[ICD10: H92.02] Diagnosis: Other lesions of oral mucosa[ICD10: K13.79] Ivon BALL [employer] [facility] CPT-4: 27249 01/01/2018 ([id number]) OFFICE/OUTPA TIENT VISIT EST Diagnosis: Acute suppurative otitis media with spontaneous rupture of ear drum, left ear[ICD10: H66.012] Diagnosis: Migraine, unspecified, not intractable, without status migrainosus[ICD10: G43.909] Ivon BRAMBILA [employer] CPT-4: 38290 12/25/2017 ([id number]) OFFICE/OUTPA TIENT VISIT EST Diagnosis: Acute pharyngitis, unspecified[ICD10: J02.9] Ivon BALL [employer] CPT-4: 88039 12/11/2017 ([id number]) NURSE/OUTPAT IENT VISIT EST Diagnosis: Encounter for therapeutic drug level monitoring[ICD10: Z51.81] Diagnosis: Other specified abnormal immunological findings in serum[ICD10: R76.8] Diagnosis: Vitamin D deficiency, unspecified[ICD10: E55.9] Diagnosis: Tachycardia, unspecified[ICD10: R00.0] Kristine TERRELLR [employer] CPT-4: 14582 12/01/2017 ([id number]) PREV VISIT E ST AGE 40-64 Diagnosis: Encounter for general adult medical examination without abnormal findings[ICD10: Z00.00] Diagnosis: Encounter for gynecological examination (general) (routine) without abnormal findings[ICD10: Z01.419] Kristinejalil BRAMBILA [facility] CPT-4: 73954 11/05/2017 ([id number]) OFFICE/OUTPA TIENT VISIT EST Diagnosis: Other specified abnormal immunological findings in serum[ICD10: R76.8] Kristine BRAMBILA DO [facility] CPT-4: 53463 10/14/2017 ([id number]) OFFICE/OUTPA TIENT VISIT EST Diagnosis: Pain in right shoulder[ICD10: M25.511] 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] Ivon SHAW [facility] CPT-4: 14968 10/06/2017 OFFICE/OUTPATIENT SIT EST Diagnosis: Paresthesia of [...] Vitamin D deficiency, unspecified[ICD10: E55.9] Kristine ROWLAND [facility] CPT-4: 65447 10/01/2017 ([id number]) OFFICE/OUTPA TIENT VISIT EST Diagnosis: Burn of second degree of back of left hand, initial encounter[ICD10: T23.262A] Ivon BRAMBILA DO [facility] CPT-4: 82907 09/10/2017 ([id number]) OFFICE/OUTPA TIENT VISIT EST Diagnosis: Pain in unspecified joint[ICD10: M25.50] Diagnosis: Dysuria[ICD10: R30.0] Kristine BRAMBILA DO [facility] CPT-4: 97947 09/05/2017 ([id number]) OFFICE/OUTPA TIENT VISIT EST 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] Kristine BRAMBILA [facility] CPT-4: 04981 09/04/2017 ([id number]) OFFICE/OUTPA TIENT VISIT EST Diagnosis: Fever, unspecified[ICD10: R50.9] Diagnosis: Encounter for therapeutic drug level monitoring[ICD10: Z51.81] Kristine BRAMBILA DO [facility] CPT-4: 22604 08/07/2017 OFFICE/OUTPATIENT SIT EST Diagnosis: Acute upper respiratory infection, unspecified[ICD10: J06.9] Diagnosis: Gastro-esophageal reflux disease without esophagitis[ICD10: K21.9] Diagnosis: Fever, unspecified[ICD10: R50.9] Ivon BRAMBILA DO [facility] CPT-4: 33232 07/15/2017 ([id number]) OFFICE/OUTPA TIENT VISIT EST Diagnosis: Otitis media, unspecified, left ear[ICD10: H66.92] Diagnosis: Localized enlarged lymph nodes[ICD10: R59.0] Kristine ROWLAND [facility] CPT-4: 89538 07/04/2017 ([id number]) OFFICE/OUTPA TIENT VISIT EST Diagnosis: Localized enlarged lymph nodes[ICD10: R59.0] Diagnosis: Otitis media, unspecified, left ear[ICD10: H66.92] Kristine ROWLAND [facility] CPT-4: 82219 07/02/2017 OFFICE/OUTPATIENT SIT EST Diagnosis: Otitis media, unspecified, left ear[ICD10: H66.92] Diagnosis: Localized enlarged lymph nodes[ICD10: R59.0] Ivon SHAW [facility] CPT-4: 32948 07/01/2017 ([id number]) OFFICE/OUTPA TIENT VISIT EST Diagnosis: Encounter for therapeutic drug level monitoring[ICD10: Z51.81] Kristine BRAMBILA DO [facility] CPT-4: 19223 06/19/2017 OFFICE/OUTPATIENT SIT EST Diagnosis: Pneumonia, unspecified organism[ICD10: J18.9] Diagnosis: Insomnia, unspecified[ICD10: G47.00] Ivon BALL ER [facility] CPT-4: 53770 05/27/2017 OFFICE/OUTPATIENT SIT EST Diagnosis: Insomnia, unspecified[ICD10: G47.00] Diagnosis: Other chronic pain[ICD10: G89.29] Ivon [facility]ALL [facility] CPT-4: 45977 05/20/2017 ([id number]) OFFICE/OUTPA TIENT VISIT EST Diagnosis: Headache[ICD10: R51] Diagnosis: Diplopia[ICD10: H53.2] Kristine BRAMBILA [facility] CPT-4: 04838 04/22/2017 ([id number]) OFFICE/OUTPA TIENT VISIT EST Diagnosis: Acute sinusitis, unspecified[ICD10: J01.90] Kristine TERRELLR [employer] CPT-4: 25063 04/01/2017 ([id number]) OFFICE/OUTPA TIENT VISIT EST Diagnosis: Pelvic and perineal pain[ICD10: R10.2] Diagnosis: 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[ICD10: Z79.01] Diagnosis: Hematuria, unspecified[ICD10: R31.9] Kristine TERRELLR [facility] CPT-4: 51924 02/10/2017 ([id number]) OFFICE/OUTPA TIENT VISIT EST Diagnosis: Acute pharyngitis, unspecified[ICD10: J02.9] Diagnosis: Cervicalgia[ICD10: M54.2] Diagnosis: Localized enlarged lymph nodes[ICD10: R59.0] Diagnosis: Acute stress reaction[ICD10: F43.0] Kristine TERRELLR [employer] CPT-4: 11278 02/05/2017 ([id number]) OFFICE/OUTPA TIENT VISIT EST Diagnosis: Acute pharyngitis due to other specified organisms[ICD10: J02.8] Kristine BRAMBILA [employer] [facility] CPT-4: 95674 02/03/2017 ([id number]) OFFICE/OUTPA TIENT VISIT EST Diagnosis: Acute pharyngitis due to other specified organisms[ICD10: J02.8] 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] Kristine ROWLAND [facility] CPT-4: 22315 01/13/2017 ([id number]) OFFICE/OUTPA TIENT VISIT EST Diagnosis: Encounter for therapeutic drug level monitoring[ICD10: Z51.81] Kristine BRAMBILA DO [facility] CPT-4: 75521 12/18/2016 ([id number]) OFFICE/OUTPA TIENT VISIT EST Diagnosis: Pain in unspecified joint[ICD10: M25.50] Kristine ROWLAND DO [facility] CPT-4: 81734 11/27/2016 ([id number]) OFFICE/OUTPA TIENT VISIT EST Diagnosis: URI, ACUTE[ICD10: J06.9] Diagnosis: Dysuria[ICD10: R30.0] Diagnosis: 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[ICD10: Z79.01] Diagnosis: Encounter for therapeutic drug level monitoring[ICD10: Z51.81] Kristine BRAMBILA DO [facility] CPT-4: 87797 08/27/2016 ([id number]) OFFICE/OUTPA TIENT VISIT EST 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] Diagnosis: Abnormal levels of other serum enzymes[ICD10: R74.8] Kristine ROWLAND [employer] [facility] CPT-4: 58444 05/24/2016 ([id number]) OFFICE/OUTPA TIENT VISIT EST Diagnosis: Urinary tract infection, site not specified[ICD10: N39.0] Nayeli BRAMBILA DO [facility] CPT-4: 06223 04/23/2016 ([id number]) OFFICE/OUTPA TIENT VISIT EST Diagnosis: Abrasion, left lower leg, initial encounter[ICD10: S80.812A] Nayeli BRAMBILA DO [facility] CPT-4: 79945 04/17/2016 ([id number]) OFFICE/OUTPA TIENT VISIT EST Diagnosis: 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[ICD10: Z79.01] Kristine BRAMBILA [employer] [facility] CPT-4: 23118 04/11/2016 ([id number]) OFFICE/OUTPA TIENT VISIT EST Diagnosis: Migraine, unspecified, not intractable, without status migrainosus[ICD10: G43.909] Diagnosis: Fibromyalgia[ICD10: M79.7] Kristine BRAMBILA DO [facility] CPT-4: 49048 03/12/2016 ([id number]) OFFICE/OUTPA TIENT VISIT EST 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] Kristine BRAMBILA [employer] [facility] CPT-4: 23582 02/12/2016 ([id number]) OFFICE/OUTPA TIENT VISIT EST Diagnosis: 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[ICD10: Z79.01] Kristine BRAMBILA [employer] [facility] CPT-4: 49651 02/01/2016 ([id number]) OFFICE/OUTPA TIENT VISIT EST Diagnosis: Encounter for therapeutic drug level monitoring[ICD10: Z51.81] Kristine BRAMBILA [employer] [facility] CPT-4: 58140 01/22/2016 OFFICE/OUTPATIENT SIT EST Diagnosis: Encounter for therapeutic drug level monitoring[ICD10: Z51.81] 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] Diagnosis: Acute tonsillitis, unspecified[ICD10: J03.90] Julee HOOKSQUELINE KalinImelda YAHIR ROWLAND [employer] [facility] CPT-4: 64692 11/10/2015 ([id number]) OFFICE/OUTPA TIENT VISIT EST Diagnosis: Acute tonsillitis, unspecified[ICD10: J03.90] Nayeli MINER KalniImelda PATTY [employer] [facility] CPT-4: 73773 11/09/2015 ([id number]) OFFICE/OUTPA TIENT VISIT EST Diagnosis: Localized swelling, mass and lump, neck[ICD10: R22.1] Diagnosis: Pain in left hip[ICD10: M25.552] Diagnosis: Pain in right hip[ICD10: M25.551] Kristine MINER KalinImelda YAHIR ROWLAND [facility] CPT-4: 27584 10/10/2015 ([id number]) OFFICE/OUTPA TIENT VISIT EST Diagnosis: Other fatigue[ICD10: R53.83] Diagnosis: Localized swelling, mass and lump, neck[ICD10: R22.1] Diagnosis: Generalized enlarged lymph nodes[ICD10: R59.1] 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] Diagnosis: Candidiasis, unspecified[ICD10: B37.9] Diagnosis: Other chronic pain[ICD10: G89.29] Diagnosis: Acute upper respiratory infection, unspecified[ICD10: J06.9] Nayeli Justin KRISTINE Moran YAHIRJANETT [facility] CPT-4: 22085 10/02/2015 ([id number]) OFFICE/OUTPA TIENT VISIT EST 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] Diagnosis: Other fatigue[ICD10: R53.83] Kristine Moran YAHIRJANETT [facility] CPT-4: 65093 09/29/2015 ([id number]) OFFICE/OUTPA TIENT VISIT EST Diagnosis: 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[ICD10: Z79.01] Kristine Moran YAHIRJANETT [facility] CPT-4: 28676 07/27/2015 ([id number]) OFFICE/OUTPA TIENT VISIT EST Diagnosis: Fibromyalgia[ICD10: M79.7] Diagnosis: Tachycardia, unspecified[ICD10: R00.0] Kristine Moran YAHIR JANETT [facility] CPT-4: 87445 07/10/2015 ([id number]) OFFICE/OUTPA TIENT VISIT EST Diagnosis: Encounter for therapeutic drug level monitoring[ICD10: Z51.81] Diagnosis: Dysuria[ICD10: R30.0] Kristine Moran YAHIRJANETT [facility] CPT-4: 56496 06/30/2015 OFFICE/OUTPATIENT SIT EST Diagnosis: Scar conditions and fibrosis of skin[ICD10: 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 O RENDER DO [facility] CPT-4: 62650 06/27/2015 ([id number]) OFFICE/OUTPA TIENT VISIT EST Diagnosis: 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[ICD10: Z79.01] Kristine BRAMBILA DO [facility] CPT-4: 50707 06/21/2015 OFFICE/OUTPATIENT SIT EST Diagnosis: Fibromyalgia[ICD10: M79.7] Kristine BRAMBILA DO [facility] CPT-4: 44935 06/08/2015 ([id number]) OFFICE/OUTPA TIENT VISIT EST Diagnosis: Dysuria[ICD10: R30.0] Kristine BRAMBILA DO [facility] CPT-4: 30688 05/31/2015 OFFICE/OUTPATIENT SIT NEW Diagnosis: Localized enlarged lymph nodes[ICD10: R59.0] Diagnosis: Benign intracranial hypertension[ICD10: G93.2] Diagnosis: Personal history of pulmonary embolism[ICD10: Z86.711] 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 Sera RENDER DO [employer] CPT-4: 91493 05/24/2015 Plan of Care Planned Activity Notes [...] 564.1 ICD-10 : K58.1 02/08/2019 Patient Education: [employer]- [employer] [id number] https://www.[employer]/samplemd/resources/getResource/61/[email or web address] Completed 02/08/2019 Visit Diagnosis Plan: Other fatigue [...] ICD-10 : J02.8 01/19/2019 Appointment: Ivon Sky [address] [place] [address] ACUTE ILLNESS 01/19/2019 Visit Diagnosis Plan: Otalgia, [...] ICD-10 : R53.83 01/04/2019 Appointment: Ivon Sky [address] [place] [address] ACUTE ILLNESS 01/04/2019 Appointment: Kristine Brambila WPtel: [address] [place] [address] LAB 12/18/2018 Appointment: Kristine Brambila WPtel: [address] [place] [address] ACUTE ILLNESS 12/16/2018 Visit Diagnosis Plan: Benign [...] : R53.83 12/03/2018 Appointment: Kristine Brambila WPtel: [address] [place] [address] ACUTE ILLNESS 12/03/2018 Visit Diagnosis Plan: Enlarged [...] ICD-10 : J02.9 12/02/2018 Appointment: Ivon Sky [address] FOLLOW UP 12/02/2018 Visit Diagnosis Plan: custodial (current ) use [...] : H66.002 11/30/2018 Appointment: Ivon Sky [address] ACUTE ILLNESS 11/30/2018 Patient Education: Coumadin- OptimizeRX Coupon [id number] https://www.[employer]/samplemd/resources/getResource/61/[email or web address] Completed 11/30/2018 Appointment: Kristine Brambila WPtel: [address] [place] [address] [place] UA 11/20/2018 Appointment: Kristine Brambila WPtel: [address] [place] [address] [place] INJECTION 11/12/2018 Visit Diagnosis Plan: Streptococcal pharyngitis Discussion: Strep A- positive ASO titer today along with CBC. Rocephin 1 gram. RTC tmrw for another injection. Patient states understanding. ICD-9 : 034.0 ICD-10 : J02.0 11/11/2018 Appointment: Lulu Navarro [address] [place] [address] ACUTE ILLNESS 11/11/2018 Appointment: Kristine Brambila WPtel: [address] [place] [address] ACUTE ILLNESS 10/27/2018 Appointment: Kristine Brambila WPtel: [address] [place] [address] [place] INJECTION 10/09/2018 Visit Diagnosis Plan: Acute recurrent maxillary sinusi tis Discussion: Rocephin 1 gram administered in clinic- patient tolerated well. Continue with supportive treatment at home as well. Tylenol for headache. Salt water gargles and sinus rinses advised. Patient states understanding. ICD-9 : 461.0 ICD-10 : J01.01 10/08/2018 Appointment: Lulu Navarro [address] [place] [address] [place] INJECTION 10/08/2018 Visit Diagnosis Plan: Acute recurrent maxillary sinusi tis Discussion: Rocephin- 1 gram administered in clinic. Patient tolerated well. Sinus rinses encouraged. Rest and fluids. Tylenol or Motrin for pain and fever. FU PRN. Patient states understanding. ICD-9 : 461.0 ICD-10 : J01.01 10/07/2018 Appointment: Lulu Navarro [facility] ACUTE ILLNESS 10/07/2018 Visit Diagnosis Plan: Dizziness [...] ICD-10 : R42 09/25/2018 Appointment: Lulu Navarro [facility] Jaqueline [address] ACUTE ILLNESS 09/25/2018 Appointment: Kristine Brambila WPtel: [address] [place] [address] 09/10/2018 Visit Diagnosis Plan: Furuncle right hand [...] : R22.1 09/08/2018 Appointment: Kristine Brambila WPtel: [facility] [address] ACUTE ILLNESS 09/08/2018 Patient Education: cefdinir- Opt[employer] Coupon [id number] https://www.[employer]/samplemd/resources/getResource/61/[email or web address] Completed 09/08/2018 Appointment: Kristine Brambila WPtel: [address] [facility] LAB 08/14/2018 Visit Diagnosis Plan: Acute sinusitis, [...] ICD-10 : H92.02 07/23/2018 Appointment: Ivon Sky [address] [place] [address] ACUTE ILLNESS 07/23/2018 Patient Education: cyclobenzaprine- Opti mizeRX Coupon [id number] https://www.In*[employer]/sampleFoodText/resources/getResource/61/[email or web address]-ni [id number].pdf Completed 07/23/2018 Visit Diagnosis Plan: Streptococcal infe ction, unspecified site Discussion: Randy Dove Sees dentist today t o assess tooth ICD-9 : 041.00 ICD-10 : A49.1 07/08/2018 Appointment: Kristine Brambila WPtel: [address] [facility] FOLLOW UP 07/08/2018 Patient Education: penicillin V potassiu m- OptimizeRX Coupon [id number] https://www.In*[employer]/samplemd/resources/getResource/61/[id number] [email or web address].pdf Completed 07/08/2018 Visit Diagnosis Plan: Localized enlarged [...] : K04.6 07/02/2018 Appointment: Ivon Sky [address] ACUTE ILLNESS 07/02/2018 Appointment: Kristine Brambila WPtel: [address] [place] [address] LAB 06/22/2018 Appointment: Kristine Brambila WPtel: [address] [place] [address] UA 06/17/2018 Visit Diagnosis Plan: Acute sinusitis, unspecified Discussion: dc keflex. start cefdinir daily for 10 days. saline up nares prn congestion. if no improvement after antibiotics or worsening symtpoms, call clinic. 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 Discussion: pt/inr [...] : H70.002 05/11/2018 Appointment: Ivon Sky [address] [place] [id number] FOLLOW UP 05/11/2018 Appointment: Kristine Brambilatel: [address] [place], [place] [address] LAB 04/30/2018 Visit Diagnosis [...] : J01.90 04/02/2018 Appointment: Ivon Sky [address] ACUTE ILLNESS 04/02/2018 Patient Education: Patient Medication Summary Completed 04/02/2018 Appointment: Kristine Brambila WPtel: [address] [place], [place] [address] LAB 03/24/2018 Patient Education: Patient Medication [...] : G43.909 03/16/2018 Appointment: Ivon Sky 504 [facility] ACUTE ILLNESS 03/16/2018 Patient Education: Patient Medication Summary Completed 03/16/2018 Appointment: Kristine Brambilatel: [address] [place], [place] [phone] LAB 02/24/2018 Patient Education: Patient Medication Summary Completed 02/24/2018 Appointment: Kristine Brambila WPtel: [address] [place], [place] [phone] US RESCHEDULED 02/18/2018 Visit Diagnosis Plan: Abdominal distension (gaseous) Discussion: Wanda Restora Rx 1 daily Follow Up: 2 weeks ICD-9 : 787.3 ICD-10 : R14.0 02/16/2018 Visit Diagnosis Plan: Epigastric pain Discussion: Pepcid BID ICD-9 : 789.06 ICD-10 : R10.13 02/16/2018 Visit Diagnosis Plan: Diarrhea, unspecified Discussion: Wanda ICD-9 : 787.91 ICD-10 : R19.7 02/16/2018 Appointment: Kristine Brambila WPtel: [address] [place] [address] ACUTE ILLNESS 02/16/2018 Patient Education: Patient Medication Summary Completed 02/16/2018 Appointment: Kristine Brambila WPtel: [address] [place], [place] [phone] [place] INJECTION 02/05/2018 Patient Education: Patient Medication Summary Completed 02/05/2018 Appointment: Kristine Brambila WPtel: [address] [place], [place] [phone] [place] INJECTION 01/29/2018 Patient Education: Patient Medication Summary Completed 01/29/2018 Appointment: Kristine Brambila WPtel: [address] [place], [place] [phone] [place] INJECTION 01/28/2018 Patient Education: Patient Medication [...] ICD-10 : H66.001 01/26/2018 Appointment: Ivon Sky [address] [place] [address] ACUTE ILLNESS 01/26/2018 Patient Education: Patient Medication [...] ICD-10 : K13.79 01/01/2018 Appointment: Ivon Sky [address] [place] [address] ACUTE ILLNESS 01/01/2018 Patient Education: Patient Medication [...] ICD-10 : G43.909 12/25/2017 Appointment: Ivon Sky 504 [facility] ACUTE ILLNESS 12/25/2017 Patient Education: Patient Medication Summary Completed 12/25/2017 Visit Diagnosis Plan: Acute pharyngitis, unspecified Discussion: rapid strep negative. rocephin injection given in office. clindamycin prescribed as well to start tomorrow for 10 days. increase fluid intake. call or rtc next week if new or worsening symptoms. ICD-9 : 462 ICD-10 : J02.9 12/11/2017 Appointment: Ivon Sky 504 [facility] ACUTE ILLNESS 12/11/2017 Patient Education: Patient Medication Summary Completed 12/11/2017 Appointment: Kristine Brambila WPtel: [address] [place], [place] [phone] LAB 12/01/2017 Patient Education: Patient Medication Summary Completed 12/01/2017 Visit Diagnosis Plan: Encounter for gyne cological examination (general) (routine) without abnormal findings Discussion: Pap done as has a history of choriocarcinoma Had mammogram last month ICD-9 : V72.31 ICD-10 : Z01.419 11/05/2017 Appointment: Kristine Brambila WPtel: [address] [place] [address] Annual Well Visit 11/05/2017 Patient Education: Patient Medication Summary Completed 11/05/2017 Appointment: Kristine Brambila WPtel: [address] [place] [address] LAB 10/14/2017 Patient Education: Patient Medication Summary Completed 10/14/2017 Care Plan: X-RAY EXAM OF SHOULDER right LOINC : 61475-2 Pending 10/07/2017 Visit Diagnosis Plan: Pain in right shoulder Discussion: xray ordered of right shoulder to rule out fracture. 40 mg kenalog given as one shot to assist with pain. ICD-9 : 719.41 ICD-10 : M25.511 10/06/2017 Visit Diagnosis Plan: custodial (current ) use of anticoagulants Discussion: pt/inr completed at today's visit. ICD-9 : V58.61 ICD-10 : Z79.01 10/06/2017 Appointment: Ivon Sky [address] ACUTE ILLNESS 10/06/2017 Patient Education: Patient [...] : I73.00 10/01/2017 Appointment: Kristine Brambila WPtel: [address] [place] [address] ACUTE ILLNESS 10/01/2017 Patient Education: Patient Medication [...] ICD-10 : T23.262A 09/10/2017 Appointment: Ivon Sky [address] [place] [address] ACUTE ILLNESS 09/10/2017 Patient Education: Patient Medication Summary Completed 09/10/2017 Appointment: Kristine Brambila WPtel: [address] [place] [address] INJECTION 09/05/2017 Patient Education: Patient Medication Summary Completed 09/05/2017 Appointment: Kristine Brambila WPtel: [address] [place] [address] LAB 09/04/2017 Patient Education: Patient Medication Summary Completed 09/04/2017 Appointment: Kristine Brambila WPtel: [address] [place] [address] LAB 08/07/2017 Patient Education: Patient Medication Summary Completed 08/07/2017 Patient Education: Patient Medication Summary Completed 07/21/2017 Care Plan: CHEST X-RAY 2VW FRONTAL&LATL LOINC : 75599-8 Pending 07/21/2017 Visit Diagnosis Plan: Acute upper [...] ICD-10 : K21.9 07/15/2017 Appointment: Ivon Sky [address] [place] [address] ACUTE ILLNESS 07/15/2017 Patient Education: Patient Medication Summary Completed 07/15/2017 Appointment: Kristine Brambila WPtel: [address] [place] [address] [place] INJECTION 07/04/2017 Patient Education: Patient Medication Summary Completed 07/04/2017 Appointment: Kristine Brambila WPtel: [address] [place] [address] [place] INJECTION 07/02/2017 Patient Education: Patient Medication [...] ICD-10 : H66.92 07/01/2017 Appointment: Ivon Sky [address] [place] [address] ACUTE ILLNESS 07/01/2017 Patient Education: Patient Medication Summary Completed 07/01/2017 Care Plan: US EXAM OF HEAD AND NECK Pending 07/01/2017 Appointment: Kristine Brambila WPtel: [address] [place], [place] [phone] [place] LAB 06/19/2017 Patient Education: Patient Medication [...] : J18.9 05/27/2017 Appointment: [facility] [facility] 05/27/2017 Patient Education: Patient Medication [...] : G47.00 05/20/2017 Appointment: [facility] [facility] 05/20/2017 Patient Education: Patient Medication Summary Completed 05/20/2017 Visit Diagnosis Plan: Headache Discu ssion: Discussed likely Migraine Discussed MRI results Discussed changing acetazolamide to HCTZ ICD-9 : 784.0 ICD-10 : R51 04/22/2017 Visit Diagnosis Plan: Diplopia Discu ssion: Updated dilated eye exam ICD-9 : 368.2 ICD-10 : H53.2 04/22/2017 Appointment: Kristine Brambila [facility]Ptel: [facility] FO[facility] 04/22/2017 Patient Education: Patient Medication Summary Completed 04/22/2017 Appointment: Kristine Brambila WPtel: [address] [place] [address] US RESCHEDULED 04/07/2017 Visit Plan: Saline nasal flushes pr n. Tylenol/Motrin prn headache. Notify if persists/symptoms worsening. 04/01/2017 Visit Plan: Saline nasal flushes pr n. Tylenol/Motrin prn headache. Notify if persists/symptoms worsening. 04/01/2017 Visit NOS Plan: Plan Notes: Saline nasal flushes prn. Tyle... 04/01/2017 Visit Diagnosis Plan: Acute sinusitis, unspecified Discussion: Kenalog 40mg IM x1 Decadron/Garamycin Nose [place] Mix Has appointment on April 28 with ENT ICD-9 : 461.9 ICD-10 : J01.90 04/01/2017 Appointment: Kristine Brambila WPtel: [address] [place] [address] ACUTE ILLNESS 04/01/2017 Patient Education: Patient Medication Summary Completed 04/01/2017 Referral: Serjio uLgo WPtel: [address] Referral Appointment Requested 03/20/2017 Patient Education: Patient Medication Summary Completed 02/27/2017 Care Plan: CT ABDOMEN W/O DYE abd/pe lvis stone search LOINC : 17703-3 Pending 02/27/2017 Patient Education: Patient Medication Summary Completed 02/12/2017 Care Plan: MRI NECK SPINE W/O DYE LOINC : 36236-9 Pending 02/12/2017 Appointment: Kristine Brambila WPtel: [address] [place] [address] [place] LAB 02/10/2017 Patient Education: Patient Medication [...] M54.2 02/05/2017 Appointment: Kristine Brambila WPtel: [address] [place], [place] [phone] ACUTE ILLNESS 02/05/2017 Patient Education: Patient Medication Summary Completed 02/05/2017 Care Plan: Referral Order SNOMED-CT : [id number] Pending 02/05/2017 Appointment: Kristine Brambila WPtel: [address] [place], [place] [phone] THROAT SWAB 02/03/2017 Patient Education: Patient Medication Summary Completed 02/03/2017 Appointment: Kristine Brambila WPtel: [address] [place], [place] [phone] 01/13 canceled~sl CANCELED 01/28/2017 Visit Plan: Supportive [...] : J02.8 01/13/2017 Appointment: Kristine Brambila WPtel: [address] [place], [place] [phone] ACUTE ILLNESS 01/13/2017 Patient Education: Patient Medication Summary Completed 01/13/2017 Appointment: Kristine Brambila WPtel: [address] [place], [place] [phone] LAB 12/18/2016 Patient Education: Patient Medication Summary Completed 12/18/2016 Visit Diagnosis Plan: Pain in unspecified joint Discussion: Will retry methotrexate since has worked in past to greatly reduce patient's pain--4 tabs week one then 5 tabs week 2 then 6 tabs weekly and fwup in 6 weeks ICD-9 : 719.49 ICD-10 : M25.50 11/27/2016 Appointment: Kristine Brambila WPtel: [address] [place], [place] [phone] US 6/6 lm~sl 6/ confimed~sl MEDICATION REVIEW 11/27/2016 Patient Education: Patient Medication Summary Completed 11/27/2016 Visit Plan: Supportive care. Rest, Fluids, Tylenol/Motrin prn fever or bodyaches. Notify if worsening symptoms. 08/27/2016 Visit Plan: Supportive care. Rest, Fluids, Tylenol/Motrin prn fever or bodyaches. Notify if worsening symptoms. 08/27/2016 Visit NOS Plan: Plan Notes: Support gauri care. Rest, Fluids... 08/27/2016 Visit Diagnosis Plan: custodial (current ) use of anticoagulants Discussion: PT/INR drawn ICD-9 : V58.61 ICD-10 : Z79.01 08/27/2016 Visit Diagnosis Plan: Dysuria Discus steven: Culture urine ICD-9 : 788.1 ICD-10 : R30.0 08/27/2016 Visit Diagnosis Plan: URI, ACUTE Dis cussion: Supportive care ICD-9 : 465.9 ICD-10 : J06.9 08/27/2016 Appointment: Kristine Brambila WPtel: [address] [place], [place] [address] 08/26 confirmed`sl MEDICATION REVIEW 08/27/2016 Patient Education: Patient Medication Summary Completed 08/27/2016 Appointment: Kristine Brambila WPtel: [address] [place] [address] BP CHECK 07/08/2016 Patient Education: Patient Medication Summary Completed 07/08/2016 Appointment: Kristine Brambila WPtel: [address] [place] [address] LAB 05/24/2016 Patient Education: Patient Medication Summary Completed 05/24/2016 Appointment: Kristine Brambila WPtel: [address] [place] [address] 04/24 will not be able to get [...] with culture results 04/23/2016 Appointment: Nayeli Anderson [address] [place] [address] ACUTE ILLNESS 04/23/2016 Patient Education: Patient Medication [...] add oral abx 04/17/2016 Appointment: Nayeli Anderson [address] [place] [address] ACUTE ILLNESS 04/17/2016 Patient Education: Patient Medication Summary Completed 04/17/2016 Patient Education: [facility] - Saving AutoInj - 18-64 - Dynamic Portal ID Completed 04/17/2016 Appointment: Kristine Brambila WPtel: [address] [place], [place] [phone] LAB 04/11/2016 Patient Education: Patient [...] for migraines 03/12/2016 Appointment: Kristine Brambila WPtel: [address] [place] [address] 03/12 confirmed-sp FOLLOW UP 03/12/2016 Patient Education: Patient Medication Summary Completed 03/12/2016 Appointment: Kristine Brambila WPtel: [address] [place] [address] LAB 02/12/2016 Patient Education: Patient Medication Summary Completed 02/12/2016 Appointment: Kristine Brambila WPtel: [address] [place], [place] [address] LAB 02/01/2016 Patient Education: Patient Medication Summary Completed 02/01/2016 Appointment: Kristine Brambila WPtel: [address] [place], [place] [phone] LAB 01/22/2016 Patient Education: Patient Medication Summary [...] improvement 11/10/2015 Appointment: Julee Slater WPtel: [phone] [facility] ACUTE ILLNESS 11/10/2015 Patient Education: Patient [...] care otherwise 11/09/2015 Appointment: Nayeli Anderson [address] ACUTE ILLNESS 11/09/2015 Patient Education: Patient Medication Summary Completed 11/09/2015 Referral: Maximiliano Neves WPtel: [address] [place] [id number] US Spoke with Sally at Dr. Ta's offic e. Patient is scheduled for 10/16/15 at 3:15pm. Demographics and notes have been faxed. Patient has been informed. 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 10/02/2015 Visit Plan: Labs [...] management of pain 10/02/2015 Appointment: Nayeli Anderson [address] [place] [address] ACUTE ILLNESS 10/02/2015 Patient Education: Patient Medication Summary Completed 10/02/2015 Patient Education: [facility] - Saving AutoInj - 18-64 - Dynamic Portal ID Completed 10/02/2015 Care Plan: US EXAM OF HEAD AND NECK Pending 10/02/2015 Appointment: Kristine Brambila WPtel: [address] [place] [address] [place] LAB 09/29/2015 Patient Education: Patient Medication Summary Completed 09/29/2015 Appointment: Kristine Brambila WPtel: [address] [place] [address] US LAB 07/27/2015 Patient Education: Patient Medication Summary Completed 07/27/2015 Visit Plan: Trial of Savella Did no t tolerate lyrica Did not tolerate cymbalta 07/10/2015 Appointment: Kristine Brambila WPtel: [address] [place] [address] 07/10 appt confirmed cn FOLLOW UP 07/10/2015 Patient Education: Patient Medication Summary Completed 07/10/2015 Appointment: Kristine Brambila [facility]Ptel: [phone] [facility] [facility] 06/30/2015 Patient Education: Patient Medication Summary Completed 06/30/2015 Visit Plan: Recommended Vitamin E o il topically bid to area of scar. Currently taking Amoxicillin for sinusitis. Recommend Flonase nasal spray 06/27/2015 Visit Plan: Recommended Vitamin E o il topically bid to area of scar. Currently taking Amoxicillin for sinusitis. Recommend Flonase nasal spray 06/27/2015 Appointment: Meli Hatch WPtel: [facility] ACUTE ILLNESS 06/27/2015 Patient Education: Patient Medication Summary Completed 06/27/2015 Appointment: Meli Hatch WPtel: [address] [place], [place] [phone] 06/22/15 appt confirmed and she will drea ng new insurance card ACUTE ILLNESS 06/26/2015 Appointment: Kristine Brambila WPtel: [address] [place], [place] [phone] LAB 06/21/2015 Patient Education: Patient Medication Summary Completed 06/21/2015 Visit Plan: Add cymbalta at 30mg da loli Repeat PT/INR in 2weeks Recheck 1mo Awaiting ID to reschedule 06/08/2015 Visit Plan: Add cymbalta at 30mg da loli Repeat PT/INR in 2weeks Recheck 1mo Awaiting ID to reschedule 06/08/2015 Appointment: Kristnie Brambila WPtel: [address] [place] [address] 06/07 lm ~sl 06/08 confirmed ~sl FOLLOW UP 06/08/2015 Patient Education: Patient Medication Summary Completed 06/08/2015 Patient Education: [facility] - Saving AutoInj - Cymbalta - 18-64 - Dynamic Portal ID Completed 06/08/2015 Patient Education: [facility] - Saving AutoInj - 18-64 - Dynamic Portal ID Completed 06/08/2015 Appointment: Kristine Brambila WPtel: [phone] [facility] UA 05/31/2015 Patient Education: Patient Medication Summary Completed 05/31/2015 Visit Plan: Check PT/INR today Stop ped Lyrica due to fluid retention Has appt. scheduled at [facility] with hematology and infectious disease 06/08 Follow-up appt. in 2 weeks following appt. at . 05/24/2015 Visit Plan: Check PT/INR today Stop ped Lyrica due to fluid retention Has appt. scheduled at [facility] with hematology and infectious disease 06/08 Follow-up appt. in 2 weeks following appt. at . 05/24/2015 Appointment: Meli Hatch WPtel: [address] [place], [place] [phone] NEW PATIENT 05/24/2015 Patient Education: Patient Medication Summary Completed 05/24/2015 Patient Education: [facility] - Saving AutoInj - 18-64 - Dynamic Portal ID Completed 05/24/2015 Referral: Annamarie Melo WPtel: [facility] [address] Referral Initiated Instructions Comment . Rapid [...] retention Has appt. scheduled at [facility] with hematology and infectious disease 06/08 Follow-up appt. in 2 weeks following appt. at . . Check PT/INR today Stopped Lyrica due to fluid retention Has appt. 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 Recommended Vitami n [...]
--- OUTSIDE RECORDS SUMMARY | 2020-01-28 14:11 | XMS REPORT | CCD ---
Author Author Heydi Hatch APRN Organization [facility] Address [address] [place] [address] Phone Care Team Providers Care Glass Blower Helper Name Role Phone Kristine Brambila D.O., PP Unavailable CCM Unavailable Summary Purpose Interface Exchange Insurance Providers Payer name Policy type / Coverage type Covered libertarian ID Effective Begin Date Effective End Date Blue Cross Blue Shield Blue Cross/Bl ue Shield [id number] 2018 Un known Family History Family History data not found Social History Social History Element Codes Description Effective Dates Tobacco history SNOMED CT: 82287987 Current every day smoker 06/08/2015 Allergies, Adverse [...] Codes Condition Status Onset Date Resolved Date Abnormal levels of o ther serum enzymes ICD-9: 790.5 ICD-10: R74.8 Active 2016 Unknown Acute pharyngitis du e to other specified organisms ICD-9: 462 ICD-10: J02.8 Active 01/13/2017 Unknown COUGH ICD-9: 786.2 ICD-10: R05 Active 07/21/2017 Unknown penitentiary (current) use of anticoagulants ICD-9: V58.61 ICD-10: [...] 02/10/2017 Unknown Pelvic and perineal pain ICD-9: [id number] ICD-10: R10.2 Active 02/10/2017 Unknown Cervicalgia ICD-9: [...] Condition Codes Effectiv e Dates Condition Status Abnormal levels of o ther serum enzymes ICD-9: 790.5 ICD-10: R74.8 2016 Active Acute pharyngitis du e to other specified organisms ICD-9: 462 ICD-10: J02.8 01/13/2017 Active COUGH ICD-9: 786.2 ICD-10: R05 07/21/2017 Active penitentiary (current) use of anticoagulants ICD-9: V58.61 ICD-10: [...] 02/10/2017 Active Pelvic and perineal pain ICD-9: [id number] ICD-10: R10.2 02/10/2017 Active Cervicalgia ICD-9: 723.1 [...] Fill Instructions Diflucan 150 mg tablet RxNorm: 977580 TABLET(S) 1 TABLET(S) PO QW NEEDED 02/08/2019 No Stop Date Active hydrocodone 10 mg-ac etaminophen 325 mg tablet RxNorm: 780615 1 Tablet(s) PO Q4-6H as needed for pain 02/01/2019 No Stop Date Active hydrocodone 10 mg-ac etaminophen 325 mg tablet RxNorm: 527918 1 Tablet(s) PO Q4-6H as needed for pain 02/01/2019 No Stop Date Active Diflucan 150 mg tablet RxNorm: 138250 Tablet(s) TABLET(S) 1 TABLET(S) PO QW NEEDED 01/28/2019 No Stop Date Active Vistaril 25 mg capsule RxNorm: 030981 1 Capsule(s) PO TID 01/27/2019 07/25/2019 Active ProAir HFA 90 mcg/ac tuation aerosol inhaler RxNorm: 583872 2 Puff(s) INH Q4H as needed 01/20/2019 No Stop Date Active Tessalon Perles 100 mg capsule RxNorm: 610737 1 Capsule(s) PO TID a s needed for cough 01/20/2019 No Stop Date Active doxycycline hyclate 100 mg capsule RxNorm: 4914934 1 Capsule(s) PO BID 01/20/2019 01/19/2019 In active doxycycline hyclate 100 mg capsule RxNorm: 8682123 1 Capsule(s) PO BID 01/20/2019 01/26/2019 In active Coumadin 5 mg tablet RxNorm: 051320 1 Tablet(s) PO QD (on Fri, , Fri, , Fri and Fri) 01/05/2019 06/09/2019 Active Generic For:COUMADIN 5MG TAB 05/25/2018 3:20:45 PM N O T I C E Last quantity doesn't match original quantity amoxicillin 500 mg c apsule RxNorm: 636550 1 Capsule(s) PO BID 01/05/2019 01/14/2019 Inactive amoxicillin 500 mg c apsule RxNorm: 734106 1 Capsule(s) PO BID 01/05/2019 01/04/2019 Inactive hydrocodone 10 mg-ac etaminophen 325 mg tablet RxNorm: 186260 1 Tablet(s) PO Q4-6H as needed for pain 01/01/2019 01/31/2019 Inactive cyclobenzaprine 10 m g tablet RxNorm: 752986 1 TABLET(S) PO QD NEEDED 12/23/2018 06/20/2019 Ac tive Coumadin 5 mg tablet RxNorm: 402301 Tablet(s) TAKE 1 TABLET(S) BY MOUTH FRI, FRI, FRI, Friday12/23/2018 01/04/2019 Inactive Generic For:COUMADIN 5MG TA B 05/25/2018 3:20:45 PM N O T I C E Last quantity doesn't match original quantity Diflucan 150 mg tablet RxNorm: 779850 Tablet(s) TABLET(S) 1 TABLET(S) PO QW NEEDED 12/23/2018 01/27/2019 Inactive Vitamin D2 50,000 un it capsule RxNorm: 0126124 1 Capsule(s) PO QW 12/04/2018 03/03/2019 Active Medrol (Juan Francisco) 4 mg ta blets in a dose pack RxNorm: 912646 Tablet(s) PO as direc liane 12/04/2018 12/03/2018 In active Vitamin D2 50,000 un it capsule RxNorm: 6331781 1 Capsule(s) PO QW 12/04/2018 12/03/2018 Inactive Medrol (Juan Francisco) 4 mg ta blets in a dose pack RxNorm: 210423 Tablet(s) PO as direc liane 12/04/2018 01/19/2019 In active Zithromax Z-Juan Francisco 250 mg tablet RxNorm: 594744 Tablet(s) PO take as directed 12/02/2018 No Stop Date Active Vistaril 25 mg capsule RxNorm: 742308 Capsule(s) 1 Capsule(s) PO TID as needed for anxiety 11/30/2018 02/27/2019 Active Coumadin 5 mg tablet RxNorm: 868829 Tablet(s) TAKE 1 TABLET(S) BY MOUTH FRI, FRI, FRI, Friday11/30/2018 12/22/2018 Inactive Generic For:COUMADIN 5MG TA B 05/25/2018 3:20:45 PM N O T I C E Last quantity doesn't match original quantity Diflucan 150 mg tablet RxNorm: 448664 Tablet(s) TABLET(S) 1 TABLET(S) PO QW NEEDED 11/26/2018 12/22/2018 Inactive cholestyramine (with sugar) 4 gram oral powder RxNorm: 109438 1 UNIT DOSE PO QD 11/24/2018 02/21/2019 Ac tive acetazolamide 125 mg tablet RxNorm: 923115 1 Tablet(s) PO BID 11/24/2018 02/21/2019 Active cyclobenzaprine 10 m g tablet RxNorm: 162670 1 Tablet(s) PO QD as needed 11/17/2018 12/22/2018 In active hydrocodone 10 mg-ac etaminophen 325 mg tablet RxNorm: 654138 1 Tablet(s) PO Q4-6H as needed for pain 11/05/2018 01/31/2019 Inactive acetazolamide 125 mg tablet RxNorm: 404641 1 TABLET(S) PO BID 10/26/2018 11/23/2018 Inactive cholestyramine (with sugar) 4 gram oral powder RxNorm: 721595 1 UNIT DOSE PO QD 10/26/2018 11/23/2018 In active Coumadin 5 mg tablet RxNorm: 953104 TAKE 1 TABLET(S) BY MOUTH FRI, FRI, FRI, Friday10/26/2018 11/29/2018 Inactive Generic For:COUMADIN 5MG TAB 05/25/2018 3:20:45 PM N O T I C E Last quantity doesn't match original quantity Diflucan 150 mg tablet RxNorm: 427710 TABLET(S) 1 TABLET(S) PO QW NEEDED 10/26/2018 11/25/2018 In active hydrocodone 10 mg-ac etaminophen 325 mg tablet RxNorm: 626654 1 Tablet(s) PO Q4-6H as needed for pain 10/08/2018 11/04/2018 Inactive acetazolamide 125 mg tablet RxNorm: 315820 1 Tablet(s) PO BID 09/24/2018 10/23/2018 Inactive Coumadin 5 mg tablet RxNorm: 548929 TAKE 1 TABLET(S) BY MOUTH FRI, FRI, FRI, Friday09/24/2018 10/25/2018 Inactive Generic For:COUMADIN 5MG TAB 05/25/2018 3:20:45 PM N O T I C E Last quantity doesn't match original quantity Diflucan 150 mg tablet RxNorm: 008252 Tablet(s) 1 Tablet(s) PO QW as needed 09/24/2018 10/25/2018 In active cyclobenzaprine 10 m g tablet RxNorm: 161779 1 Tablet(s) PO QD as needed 09/24/2018 11/16/2018 In active Vistaril 25 mg capsule RxNorm: 439169 1 Capsule(s) PO TID as needed for anxiet y 09/24/2018 11/29/2018 In active cholestyramine (with sugar) 4 gram oral powder RxNorm: 031839 1 Unit Dose PO QD 09/24/2018 10/23/2018 In active Pyridium 200 mg tablet RxNorm: 7052730 1 Tablet(s) PO TID 09/10/2018 09/19/2018 Inactive Pyridium 200 mg tablet RxNorm: 8058077 1 Tablet(s) PO TID 09/10/2018 09/09/2018 Inactive hydrocodone 10 mg-ac etaminophen 325 mg tablet RxNorm: 180346 1 Tablet(s) PO Q4-6H as needed for pain 09/08/2018 10/07/2018 Inactive cefdinir 300 mg capsule RxNorm: 111358 1 Capsule(s) PO BID 09/08/2018 09/21/2018 Inactive hydrocodone 10 mg-ac etaminophen 325 mg tablet RxNorm: 741874 1 Tablet(s) PO Q4-6H as needed for pain 08/13/2018 09/07/2018 Inactive cyclobenzaprine 10 m g tablet RxNorm: 552219 1 Tablet(s) PO QD as needed 07/23/2018 09/23/2018 In active Diflucan 150 mg tablet RxNorm: 840613 Tablet(s) 1 Tablet(s) PO QW as needed 07/23/2018 09/23/2018 In active Ciprodex 0.3 %-0.1 % ear drops,suspension RxNorm: 134952 4 Drop(s) left otic ( ear) BID 07/23/2018 07/29/2018 Inactive hydrocodone 10 mg-ac etaminophen 325 mg tablet RxNorm: 161122 1 Tablet(s) PO Q4-6H as needed for pain 07/16/2018 08/12/2018 Inactive penicillin V potassi um 500 mg tablet RxNorm: 776406 1 Tablet(s) PO Q6H 07/08/2018 07/17/2018 In active cyclobenzaprine 10 m g tablet RxNorm: 929369 1 Tablet(s) PO QD as needed 06/22/2018 07/22/2018 In active Vistaril 25 mg capsule RxNorm: 546781 1 Capsule(s) PO TID as needed for anxiet y 06/22/2018 09/23/2018 In active cholestyramine (with sugar) 4 gram oral powder RxNorm: 849319 1 Unit Dose PO QD 06/22/2018 09/23/2018 In active hydrocodone 10 mg-ac etaminophen 325 mg tablet RxNorm: 494704 1 Tablet(s) PO Q4-6H as needed for pain 06/17/2018 07/15/2018 Inactive cefdinir 300 mg capsule RxNorm: 410572 1 Capsule(s) PO BID 06/02/2018 06/11/2018 Inactive Diflucan 150 mg tablet RxNorm: 078081 Tablet(s) 1 Tablet(s) PO QW as needed 06/02/2018 07/22/2018 In active Coumadin 5 mg tablet RxNorm: 425684 TAKE 1 TABLET(S) BY MOUTH FRI, FRI, FRI, Friday05/25/2018 07/15/2018 Inactive Generic For:COUMADIN 5MG TAB 05/25/2018 3:20:45 PM N O T I C E Last quantity doesn't match original quantity Imitrex 50 mg tablet RxNorm: 044764 Tablet(s) 1 Tablet(s) PO at headache. re peat in 2 hours if no relief. no more than 2 tabs per day 05/19/2018 No Stop Date Active cholestyramine (with sugar) 4 gram oral powder RxNorm: 328042 1 Unit Dose PO QD 05/19/2018 11/14/2018 In active Vistaril 25 mg capsule RxNorm: 119689 1 Capsule(s) PO TID 05/19/2018 11/14/2018 Inactive Coumadin 5 mg tablet RxNorm: 661898 Tablet(s) TAKE 1 TABLET(S) BY MOUTH FRI, FRI, FRI, Friday05/19/2018 05/24/2018 Inactive Generic For:COUMADIN 5MG TA B N O T I C E Last quantity doesn't match original quantity acetazolamide 125 mg tablet RxNorm: 762736 1 Tablet(s) PO BID 05/19/2018 09/23/2018 Inactive cyclobenzaprine 10 m g tablet RxNorm: 201125 1 Tablet(s) PO QD as needed 05/19/2018 11/17/2018 In active Coumadin 7.5 mg tablet RxNorm: 755828 1 Tablet(s) PO QD , Th, 05/19/2018 01/04/2019 In active ketorolac 10 mg tablet RxNorm: 296891 1 Tablet(s) PO QHS as needed 05/11/2018 No Stop Date Active promethazine 12.5 mg tablet RxNorm: 067397 1 Tablet(s) PO Q6H as needed 04/23/2018 04/22/2018 In active acetazolamide 125 mg tablet RxNorm: 112523 1 Tablet(s) PO BID 04/23/2018 05/18/2018 Inactive Coumadin 5 mg tablet RxNorm: 957563 TAKE 1 TABLET(S) BY MOUTH MON, FRI, FRI, Friday04/23/2018 05/18/2018 Inactive Generic For:COUMADIN 5MG TAB N O T I C E Last quantity doesn't match original quantity Imitrex 50 mg tablet RxNorm: 596057 1 Tablet(s) PO at headache. repeat in 2 hours if no relief. no more than 2 tabs per day 04/23/2018 05/18/2018 Inactive cyclobenzaprine 10 m g tablet RxNorm: 385677 1 Tablet(s) PO QD as needed 04/23/2018 05/18/2018 In active clindamycin HCl 300 mg capsule RxNorm: 075001 1 Capsule(s) PO TID 04/02/2018 04/11/2018 Inactive hydrocodone 10 mg-ac etaminophen 325 mg tablet RxNorm: 213845 1 Tablet(s) PO Q4-6H as needed for pain 03/24/2018 06/16/2018 Inactive promethazine 12.5 mg tablet RxNorm: 789387 1 Tablet(s) PO Q6H 03/23/2018 04/23/2018 Inactive Imitrex 50 mg tablet RxNorm: 078403 1 Tablet(s) PO at headache. repeat in 2 hours if no relief. no more than 2 tabs per day 03/23/2018 04/22/2018 Inactive Diflucan 150 mg tablet RxNorm: 918282 1 Tablet(s) PO QW as needed 03/23/2018 06/01/2018 Inactive Coumadin 5 mg tablet RxNorm: 078686 Tablet(s) 1 Tablet(s) PO Mon, Wed, Fri, Sun 03/23/2018 04/22/2018 In active Imitrex 100 mg tablet RxNorm: 159866 Tablet(s) PO take one tablet at sign of headache and repeat in 2 hours if ineffective 03/16/2018 04/01/2018 Inactive ondansetron HCl 4 mg tablet RxNorm: 412113 1 Tablet(s) PO Q4H as needed for nausea 02/24/2018 04/01/2018 In active hydrocodone 10 mg-ac etaminophen 325 mg tablet RxNorm: 734516 1 Tablet(s) PO Q4-6H as needed for pain 02/24/2018 03/23/2018 Inactive Coumadin 5 mg tablet RxNorm: 266053 Tablet(s) 1 Tablet(s) PO Mon, Wed, Fri, Sun 02/20/2018 03/22/2018 In active promethazine 12.5 mg tablet RxNorm: 420156 1 Tablet(s) PO Q6H 02/20/2018 03/22/2018 Inactive Pepcid 40 mg tablet RxNorm: 239267 1 Tablet(s) PO BID for stomach 02/16/2018 03/17/2018 In active Flagyl 500 mg tablet RxNorm: 345960 1 Tablet(s) PO TID 02/16/2018 02/25/2018 Inactive Imitrex 50 mg tablet RxNorm: 612391 1 Tablet(s) PO at headache. repeat in 2 hours if no relief. no more than 2 tabs per day 01/27/2018 03/15/2018 Inactive Coumadin 5 mg tablet RxNorm: 096500 1 Tablet(s) PO Mon, Wed, Fri, Sun 01/27/2018 02/20/2018 In active amoxicillin 875 mg t ablet RxNorm: 362024 1 Tablet(s) PO BID 01/26/2018 02/04/2018 Inactive Imitrex 50 mg tablet RxNorm: 279315 1 Tablet(s) PO at headache. repeat in 2 hours if no relief. no more than 2 tabs per day 01/26/2018 03/22/2018 Inactive cyclobenzaprine 10 m g tablet RxNorm: 579494 1 Tablet(s) PO QD as needed 01/23/2018 03/23/2018 In active promethazine 12.5 mg tablet RxNorm: 232526 1 Tablet(s) PO Q6H 01/23/2018 02/19/2018 Inactive Diflucan 150 mg tablet RxNorm: 804861 1 Tablet(s) PO QW as needed 01/22/2018 03/22/2018 Inactive acetazolamide 125 mg tablet RxNorm: 839847 1 Tablet(s) PO BID 01/22/2018 04/21/2018 Inactive Imitrex 50 mg tablet RxNorm: 752079 1 Tablet(s) PO at headache. repeat in 2 hours if no relief. no more than 2 tabs per day 01/02/2018 01/25/2018 Inactive Ciprodex 0.3 %-0.1 % ear drops,suspension RxNorm: 156778 4 Drop(s) otic (ear) BID 01/01/2018 01/07/2018 In active Coumadin 7.5 mg tablet RxNorm: 878805 1 Tablet(s) PO QD , , 12/29/2017 05/18/2018 In active Coumadin 5 mg tablet RxNorm: 812565 1 Tablet(s) PO Mon, Wed, Fri, Sun 12/29/2017 01/26/2018 In active cyclobenzaprine 10 m g tablet RxNorm: 838643 1 Tablet(s) PO QD as needed 12/29/2017 01/22/2018 In active clindamycin HCl 300 mg capsule RxNorm: 669245 1 Capsule(s) PO TID 12/26/2017 12/25/2017 Inactive Imitrex 50 mg tablet RxNorm: 450839 1 Tablet(s) PO at headache. repeat in 2 hours if no relief. no more than 2 tabs per day 12/26/2017 01/01/2018 Inactive clindamycin HCl 300 mg capsule RxNorm: 968970 1 Capsule(s) PO TID 12/26/2017 01/04/2018 Inactive Zithromax Z-Juan Francisco 250 mg tablet RxNorm: 737197 Tablet(s) PO take as directed 12/25/2017 12/25/2017 In active promethazine 12.5 mg tablet RxNorm: 378415 1 Tablet(s) PO Q6H 12/25/2017 01/22/2018 Inactive clindamycin HCl 300 mg capsule RxNorm: 341565 1 Capsule(s) PO TID 12/11/2017 12/17/2017 Inactive Vistaril 25 mg capsule RxNorm: 992858 1 Capsule(s) PO TID as needed for anxiet y 12/04/2017 05/18/2018 In active cholestyramine (with sugar) 4 gram oral powder RxNorm: 816257 1 Unit Dose PO QD 12/04/2017 05/18/2018 In active Coumadin 7.5 mg tablet RxNorm: 886751 1 Tablet(s) PO QD 12/04/2017 12/28/2017 Inactive Coumadin 5 mg tablet RxNorm: 251742 1 Tablet(s) PO Friday through Friday12/04/2017 12/28/2017 In active hydrocodone 10 mg-ac etaminophen 325 mg tablet RxNorm: 973072 1 Tablet(s) PO Q4-6H as needed for pain 12/01/2017 02/23/2018 Inactive hydrocodone 10 mg-ac etaminophen 325 mg tablet RxNorm: 430125 1 Tablet(s) PO Q4-6H as needed for pain 11/03/2017 11/30/2017 Inactive cyclobenzaprine 10 m g tablet RxNorm: 686325 1 Tablet(s) PO QD as needed 10/30/2017 12/28/2017 In active cholestyramine (with sugar) 4 gram oral powder RxNorm: 022449 1 Unit Dose PO QD 10/30/2017 11/28/2017 In active amoxicillin 875 mg t ablet RxNorm: 537522 1 Tablet(s) PO BID 10/08/2017 10/07/2017 Inactive amoxicillin 875 mg t ablet RxNorm: 823273 1 Tablet(s) PO BID 10/08/2017 10/17/2017 Inactive penicillin V potassi um 500 mg tablet RxNorm: 431334 1 Tablet(s) PO BID 10/06/2017 10/07/2017 In active hydrocodone 10 mg-ac etaminophen 325 mg tablet RxNorm: 099238 1 Tablet(s) PO Q4-6H as needed for pain 10/06/2017 11/02/2017 Inactive hydrocodone 10 mg-ac etaminophen 325 mg tablet RxNorm: 725285 1 Tablet(s) PO Q4-6H as needed for pain 10/06/2017 12/31/2018 Inactive Vigamox 0.5 % eye drops RxNorm: 750834 1 Drop(s) ophthalmic (eye) TID ONLY ADMI NISTER IF INFECTION 10/03/2017 10/02/2017 Inactive Vigamox 0.5 % eye drops RxNorm: 405019 1 Drop(s) ophthalmic (eye) TID ONLY ADMI NISTER IF INFECTION 10/03/2017 10/09/2017 Inactive cholestyramine (with sugar) 4 gram oral powder RxNorm: 268143 1 Unit Dose PO QD 09/23/2017 10/30/2017 In active acetazolamide 125 mg tablet RxNorm: 486525 1 Tablet(s) PO BID 09/23/2017 12/21/2017 Inactive Coumadin 5 mg tablet RxNorm: 730780 1 Tablet(s) PO QD FRIDAY THROUGH Friday09/17/2017 11/04/2017 In active mupirocin 2 % topica l ointment RxNorm: 045832 1 Application TOP TID 09/10/2017 11/04/2017 Inactive hydrocodone 10 mg-ac etaminophen 325 mg tablet RxNorm: 894130 1 Tablet(s) PO Q4-6H as needed for pain 09/08/2017 10/05/2017 Inactive Questran 4 gram powd er for susp in a packet RxNorm: 488311 MIX ONE PACKET IN 6 O UNCES OF APPLE SAUCE OR OTHER SOFT FOOD AND EAT ONCE DAILY 09/02/2017 11/04/2017 Inactive Diflucan 150 mg tablet RxNorm: 086954 1 Tablet(s) PO QW as needed 08/14/2017 01/21/2018 Inactive hydrocodone 10 mg-ac etaminophen 325 mg tablet RxNorm: 005187 1 Tablet(s) PO Q4-6H as needed for pain 08/11/2017 09/07/2017 Inactive Tamiflu 75 mg capsule RxNorm: 670622 1 Capsule(s) PO QD 08/11/2017 08/10/2017 Inactive Tamiflu 75 mg capsule RxNorm: 833759 1 Capsule(s) PO QD 08/11/2017 08/20/2017 Inactive Coumadin 5 mg tablet RxNorm: 257828 1 Tablet(s) PO QD FRIDAY THROUGH Friday07/22/2017 09/16/2017 In active Coumadin 5 mg tablet RxNorm: 612084 TAKE ONE TABLET BY MOUTH ONCE DAILY THROUGH Friday07/16/2017 07/21/2017 Inactive cyclobenzaprine 10 m g tablet RxNorm: 062541 1 Tablet(s) PO QD as needed 07/15/2017 10/30/2017 In active hydrocodone 10 mg-ac etaminophen 325 mg tablet RxNorm: 465394 1 Tablet(s) PO Q4-6H as needed for pain 07/14/2017 08/10/2017 Inactive warfarin 5 mg tablet RxNorm: 674366 1 Tablet(s) PO Fri Sat Adelina-patibindu nt is due for PT/INR 06/18/2017 07/15/2017 Inactive Questran Light 4 gra m powder for susp in a packet RxNorm: 0262245 1 PO QD 06/18/2017 11/04/2017 In active cyclobenzaprine 10 m g tablet RxNorm: 948461 1 Tablet(s) PO QD as needed 06/18/2017 07/14/2017 In active hydrocodone 10 mg-ac etaminophen 325 mg tablet RxNorm: 907252 1 Tablet(s) PO Q4-6H as needed for pain 06/18/2017 07/13/2017 Inactive Lunesta 1 mg tablet RxNorm: 311028 1 Tablet(s) PO QHS as needed 05/27/2017 06/25/2017 Inactive Zithromax Z-Juan Francisco 250 mg tablet RxNorm: 545038 1 Tablet(s) PO Take a s directed 05/27/2017 11/04/2017 In active ProAir HFA 90 mcg/ac tuation aerosol inhaler RxNorm: 196135 2 Puff(s) INH Q4H 05/27/2017 01/19/2019 In active ProAir HFA 90 mcg/ac tuation aerosol inhaler RxNorm: 551571 2 Puff(s) INH Q4H 05/27/2017 05/26/2017 In active promethazine 6.25 mg -codeine 10 mg/5 mL syrup RxNorm: 394939 5 Milliliter(s) PO Q4 H as needed 05/27/2017 11/04/2017 Inactive Diflucan 150 mg tablet RxNorm: 978483 1 Tablet(s) PO QW as needed 05/26/2017 05/25/2017 Inactive cyclobenzaprine 10 m g tablet RxNorm: 830606 1 Tablet(s) PO QD as needed 05/20/2017 06/18/2017 In active Lunesta 2 mg tablet RxNorm: 770530 1 Tablet(s) PO QHS 05/20/2017 05/27/2017 Inactive Zithromax Z-Juan Francisco 250 mg tablet RxNorm: 146178 Tablet(s) PO As Direc liane 05/12/2017 05/19/2017 In active cyclobenzaprine 5 mg tablet RxNorm: 517269 1 Tablet(s) PO QPM 03/28/2017 05/19/2017 Inactive Vistaril 25 mg capsule RxNorm: 722923 1 Capsule(s) PO TID as needed for anxiet y 03/28/2017 09/23/2017 In active Questran 4 gram powd er for susp in a packet RxNorm: 062104 1 Unit(s) PO QD 03/06/2017 06/18/2017 In active Cipro 500 mg tablet RxNorm: 818208 1 Tablet(s) PO BID 02/27/2017 02/26/2017 Inactive Pyridium 200 mg tablet RxNorm: 9184180 1 Tablet(s) PO TID for bladder spasms 02/27/2017 03/31/2017 In active Cipro 500 mg tablet RxNorm: 897988 1 Tablet(s) PO BID 02/27/2017 03/05/2017 Inactive Levsin 0.125 mg tablet RxNorm: 9667764 1 Tablet(s) PO QID as needed for spasm 02/25/2017 11/04/2017 In active tamsulosin 0.4 mg ca psule RxNorm: 839081 1 Capsule(s) PO QPM 02/25/2017 03/26/2017 Inactive tamsulosin 0.4 mg ca psule RxNorm: 883608 1 Capsule(s) PO QPM 02/25/2017 02/24/2017 Inactive Pyridium 100 mg tablet RxNorm: 3565461 1 Tablet(s) PO TID as needed 02/21/2017 03/31/2017 In active acetazolamide 125 mg tablet RxNorm: 377520 1 Tablet(s) PO BID 02/07/2017 09/23/2017 Inactive Questran 4 gram powd er for susp in a packet RxNorm: 100122 1 Unit(s) PO QD 02/06/2017 03/06/2017 In active cyclobenzaprine 5 mg tablet RxNorm: 268424 1 Tablet(s) PO QPM 02/05/2017 03/27/2017 Inactive BuSpar 5 mg tablet RxNorm: 140982 1 Tablet(s) PO BID 02/03/2017 03/31/2017 Inactive Diflucan 150 mg tablet RxNorm: 644789 1 Tablet(s) PO QW as needed 01/15/2017 05/26/2017 Inactive Valtrex 1 gram tablet RxNorm: 022064 1 Tablet(s) PO TID 01/13/2017 01/19/2017 Inactive Vistaril 25 mg capsule RxNorm: 641026 1 Capsule(s) PO TID as needed for anxiet y 01/13/2017 03/27/2017 In active hydrocodone 10 mg-ac etaminophen 325 mg tablet RxNorm: 127296 1 Tablet(s) PO Q4-6H as needed for pain 01/13/2017 06/17/2017 Inactive Questran 4 gram powd er for susp in a packet RxNorm: 130248 1 Unit(s) PO QD 01/13/2017 09/23/2017 In active acetazolamide 125 mg tablet RxNorm: 529603 1 Tablet(s) PO BID 01/13/2017 02/06/2017 Inactive methotrexate (PF) 20 mg/0.4 mL subcutaneous auto-injector RxNorm: 0381728 Milliliter(s) SQ QW 12/26/2016 01/05/2017 Inactive Compazine 10 mg tablet RxNorm: 381282 1 Tablet(s) PO TID as needed for nausea 12/18/2016 11/04/2017 In active hydrocodone 10 mg-ac etaminophen 325 mg tablet RxNorm: 823771 1 Tablet(s) PO Q4-6H as needed for pain 12/17/2016 01/12/2017 Inactive Questran 4 gram powd er for susp in a packet RxNorm: 279598 1 Unit(s) PO QD 12/17/2016 01/13/2017 In active cyclobenzaprine 5 mg tablet RxNorm: 225362 1 Tablet(s) PO QPM 12/17/2016 02/05/2017 Inactive Questran Light 4 gra m powder for susp in a packet RxNorm: 3253543 1 PO QD 11/29/2016 06/17/2017 In active Zofran ODT 4 mg disi ntegrating tablet RxNorm: 766186 1 Tablet(s) PO Q4H as needed for nausea 11/29/2016 12/17/2016 Inactive methotrexate sodium 2.5 mg tablet RxNorm: 637709 4 Tablet(s) PO week 1 then 5 tablets po week 2 then 6 tablets weekly 11/27/2016 12/25/2016 Inactive warfarin 7.5 mg tablet RxNorm: 054349 1 Tablet(s) PO three times weekly 11/14/2016 03/31/2017 In active warfarin 7.5 mg tablet RxNorm: 871637 1 Tablet(s) PO three times weekly 11/13/2016 11/13/2016 In active Diflucan 150 mg tablet RxNorm: 520369 1 Tablet(s) PO QW as needed 11/05/2016 01/14/2017 Inactive Vistaril 25 mg capsule RxNorm: 252217 1 Capsule(s) PO TID as needed for anxiet y 11/04/2016 11/03/2016 In active Coumadin 5 mg tablet RxNorm: 004049 1 Tablet(s) PO Friday through Friday11/04/2016 06/18/2017 In active acetazolamide 125 mg tablet RxNorm: 428468 1 Tablet(s) PO BID 11/04/2016 01/13/2017 Inactive sumatriptan 100 mg t ablet RxNorm: 797490 1 Tablet(s) PO at hea dache onset. May repeat in 2 hours if headache remains 11/04/2016 11/04/2017 Inactive Vistaril 25 mg capsule RxNorm: 961250 1 Capsule(s) PO TID as needed for anxiet y 11/04/2016 01/12/2017 In active hydrocodone 10 mg-ac etaminophen 325 mg tablet RxNorm: 550400 1 Tablet(s) PO Q4-6H as needed for pain 11/04/2016 12/16/2016 Inactive Coumadin 5 mg tablet RxNorm: 624431 TAKE ONE TABLET BY MOUTH ON SUN., MON., WED., AND FRI., AND TAKE ONE AND ONE-HALF TABLETS TUE., TH., AND 10/16/2016 10/25/2016 In active Coumadin 5 mg tablet RxNorm: 422385 1 Tablet(s) PO Friday through Friday10/15/2016 11/03/2016 In active hydrocodone 10 mg-ac etaminophen 325 mg tablet RxNorm: 995028 1 Tablet(s) PO Q4-6H as needed for pain 10/14/2016 11/03/2016 Inactive hydrocodone 10 mg-ac etaminophen 325 mg tablet RxNorm: 773234 1 Tablet(s) PO Q4-6H as needed for pain 09/20/2016 10/13/2016 Inactive warfarin 7.5 mg tablet RxNorm: 442225 1 Tablet(s) PO three times weekly 09/20/2016 11/12/2016 In active Diflucan 150 mg tablet RxNorm: 560974 1 Tablet(s) PO QW as needed 08/20/2016 11/04/2016 Inactive acetazolamide 125 mg tablet RxNorm: 391144 1 Tablet(s) PO BID 08/20/2016 11/04/2016 Inactive Diflucan 150 mg tablet RxNorm: 325051 1 Tablet(s) PO QW as needed 08/20/2016 08/19/2016 Inactive Vistaril 25 mg capsule RxNorm: 763525 Capsule(s) TAKE ONE CAPSULE BY MOUTH THR EE TIMES DAILY NEEDED FOR ANXIETY 08/19/2016 11/04/2016 Inactive hydrocodone 10 mg-ac etaminophen 325 mg tablet RxNorm: 276462 1 Tablet(s) PO Q4-6H as needed for pain 08/05/2016 09/19/2016 Inactive Diflucan 150 mg tablet RxNorm: 953713 1 Tablet(s) PO QW as needed 07/19/2016 08/19/2016 Inactive tizanidine 4 mg tablet RxNorm: 733420 1-2 Tablet(s) PO QHS as needed for muscl e spasm and sleep 06/03/2016 06/10/2016 Inactive Questran Light 4 gra m powder for susp in a packet RxNorm: 5049901 1 PO QD 05/14/2016 08/11/2016 In active Macrobid 100 mg capsule RxNorm: 255689 1 Capsule(s) PO BID 04/23/2016 05/02/2016 Inactive mupirocin 2 % topica l ointment RxNorm: 202797 Apply topically to af fected area 2-3 times daily 04/17/2016 07/07/2016 Inactive Vistaril 25 mg capsule RxNorm: 468673 TAKE ONE CAPSULE BY MOUTH THREE TIMES DA LOLI NEEDED FOR ANXIETY 04/17/2016 11/04/2016 Inactive Diflucan 150 mg tablet RxNorm: 555755 1 Tablet(s) PO QW as needed 04/16/2016 07/18/2016 Inactive cyclobenzaprine 5 mg tablet RxNorm: 916273 TAKE ONE TABLET BY MO UT ONCE DAILY IN THE EVENING 03/25/2016 12/17/2016 Inactive Pyridium 100 mg tablet RxNorm: 6025362 1 Tablet(s) PO TID as needed 03/20/2016 03/19/2016 In active Diflucan 150 mg tablet RxNorm: 164182 1 Tablet(s) PO QW as needed 03/20/2016 04/15/2016 Inactive Pyridium 100 mg tablet RxNorm: 5584683 1 Tablet(s) PO TID as needed 03/20/2016 08/26/2016 In active Diflucan 150 mg tablet RxNorm: 055456 1 Tablet(s) PO QW as needed 03/19/2016 03/19/2016 Inactive Coumadin 7.5 mg tablet RxNorm: 375673 1 Tablet(s) PO QD 03/14/2016 05/12/2016 Inactive acetazolamide 125 mg tablet RxNorm: 356108 1 Tablet(s) PO BID 02/28/2016 08/20/2016 Inactive Coumadin 5 mg tablet RxNorm: 328205 1 TABLET(S) PO QD THREE TIMES A WEEK AND 1 1/2 TAB (7.5MG) FOUR TIMES A WEEK 02/28/2016 03/13/2016 Inactive Questran Light 4 gra m powder for susp in a packet RxNorm: 0980241 1 PO QD 02/13/2016 05/12/2016 In active Diflucan 150 mg tablet RxNorm: 961594 1 Tablet(s) PO QW as needed 01/19/2016 03/11/2016 Inactive Diflucan 150 mg tablet RxNorm: 447526 1 Tablet(s) PO QW as needed 01/18/2016 01/18/2016 Inactive promethazine 25 mg t ablet RxNorm: 152199 1 Tablet(s) PO Q4H as needed for nausea 12/05/2015 12/17/2016 In active Imitrex 100 mg tablet RxNorm: 904672 1 Tablet(s) PO at headache onset and may repeat in 2 hours if needed 12/05/2015 03/31/2017 Inactive Diflucan 150 mg tablet RxNorm: 694756 1 Tablet(s) PO QW as needed 11/24/2015 01/17/2016 Inactive Diflucan 150 mg tablet RxNorm: 800827 1 Tablet(s) PO QW as needed 11/21/2015 11/23/2015 Inactive Coumadin 5 mg tablet RxNorm: 532291 1 Tablet(s) PO QD three times a week and 1 1/2 tab (7.5mg) four times a week 11/13/2015 02/01/2016 Inactive Questran Light 4 gra m powder for susp in a packet RxNorm: 848976 1 PO QD 11/13/2015 02/10/2016 In active acetazolamide 125 mg tablet RxNorm: 303954 1 Tablet(s) PO BID 11/13/2015 02/10/2016 Inactive amoxicillin 875 mg t ablet RxNorm: 379713 1 Tablet(s) PO BID 11/09/2015 11/18/2015 Inactive Coumadin 7.5 mg tablet RxNorm: 343582 1 Tablet(s) PO on and 10/26/2015 10/25/2015 In active Coumadin 7.5 mg tablet RxNorm: 516779 1 Tablet(s) PO on and 10/26/2015 11/12/2015 In active Coumadin 5 mg tablet RxNorm: 261689 1 Tablet(s) PO Friday, Friday, Friday and Friday. 1.5 tablets Friday, and Friday. 10/26/2015 10/25/2015 Inactive Coumadin 5 mg tablet RxNorm: 253203 1 Tablet(s) PO Friday, Friday, Friday , and Friday. Take 1 1/2 on Friday, and Friday10/26/2015 11/12/2015 Inactive Coumadin 7.5 mg tablet RxNorm: 999044 1 Tablet(s) PO on and 10/26/2015 10/26/2015 In active Coumadin 5 mg tablet RxNorm: 353468 1 Tablet(s) PO Friday, Friday, Friday and Friday. 1.5 tablets Friday, and Friday. 10/26/2015 02/14/2016 Inactive Vistaril 25 mg capsule RxNorm: 581128 1 Capsule(s) PO TID as needed for anxiet y 10/10/2015 04/06/2016 In active cyclobenzaprine 5 mg tablet RxNorm: 933299 1 Tablet(s) PO QPM 10/10/2015 03/24/2016 Inactive Vistaril 25 mg capsule RxNorm: 119770 1 Capsule(s) PO TID as needed for anxiet y 10/10/2015 10/09/2015 In active cyclobenzaprine 5 mg tablet RxNorm: 953282 1 Tablet(s) PO QPM 10/10/2015 10/09/2015 Inactive Coumadin 5 mg tablet RxNorm: 493623 1 Tablet(s) PO Friday, Friday, Friday and Friday. 1.5 tablets Friday, and Friday. 10/02/2015 10/01/2015 Inactive Coumadin 5 mg tablet RxNorm: 480246 1 Tablet(s) PO Friday, Friday, Friday and Friday. 1.5 tablets Friday, and Friday. 10/02/2015 10/25/2015 Inactive amoxicillin 500 mg t ablet RxNorm: 923527 1 Tablet(s) PO TID 10/02/2015 10/11/2015 Inactive hydrocodone 10 mg-ac etaminophen 325 mg tablet RxNorm: 460981 1 Tablet(s) PO Q4-6H as needed for pain 10/02/2015 08/04/2016 Inactive Diflucan 150 mg tablet RxNorm: 794306 1 Tablet(s) PO QW as needed 10/02/2015 10/01/2015 Inactive amoxicillin 500 mg t ablet RxNorm: 628345 1 Tablet(s) PO TID 10/02/2015 10/01/2015 Inactive Diflucan 150 mg tablet RxNorm: 509972 1 Tablet(s) PO QW as needed 10/02/2015 10/09/2015 Inactive Coumadin 5 mg tablet RxNorm: 970763 1 Tablet(s) PO Mon.,Wed.,Fri., Sat. and Sun. 09/14/2015 10/01/2015 Inactive acetazolamide 125 mg tablet RxNorm: 750812 1 Tablet(s) PO BID 09/14/2015 11/12/2015 Inactive hydrocodone 10 mg-ac etaminophen 325 mg tablet RxNorm: 872126 1 Tablet(s) PO Q4-6H as needed for pain 09/01/2015 10/01/2015 Inactive Vistaril 25 mg capsule RxNorm: 381370 1 Capsule(s) PO TID as needed for anxiet y 08/24/2015 09/22/2015 In active baclofen 10 mg tablet RxNorm: 513094 1/2 Tablet(s) PO QAM and 1 tablet at bed time 07/27/2015 10/09/2015 Inactive Vistaril 25 mg capsule RxNorm: 955422 1 Capsule(s) PO BID 07/24/2015 08/22/2015 Inactive Savella 12.5 mg (5)- 25 mg(8)-50mg(42) tablets in a dose pack RxNorm: 629822 Tablet(s) PO as directed 07/10/2015 07/26/2015 Inactive hydrocodone 10 mg-ac etaminophen 325 mg tablet RxNorm: 988129 1 Tablet(s) PO Q6H as needed for pain 06/29/2015 08/10/2015 Inactive Coumadin 7.5 mg tablet RxNorm: 934031 1 Tablet(s) PO on and 06/21/2015 10/25/2015 In active Vistaril 25 mg capsule RxNorm: 344530 1 Capsule(s) PO BID 06/20/2015 07/24/2015 Inactive Cymbalta 30 mg capsu le,delayed release RxNorm: 008030 1 Capsule(s) PO QD 06/08/2015 07/09/2015 In active Coumadin 5 mg tablet RxNorm: 010930 1 Tablet(s) PO Mon.,Wed.,Fri., Sat. and Sun. 06/08/2015 07/07/2015 Inactive Coumadin 5 mg tablet RxNorm: 382191 1 Tablet(s) PO Mon.,Wed.,Fri., Sat. and Sun. 05/24/2015 06/07/2015 Inactive Coumadin 7.5 mg tablet RxNorm: 495053 1 Tablet(s) PO on and 05/24/2015 06/20/2015 In active Coumadin 7.5 mg tablet RxNorm: 748245 1 Tablet(s) PO on Friday No Start Date Active Vitamin B12 1000mcg Tablet RxNorm: 1/2 Tablet(s) PO QD No Start Date Active Bystolic 10 mg tablet RxNorm: 825969 3 Tablet(s) PO QAM No Start Date Active Vitamin D3 5,000 uni t tablet RxNorm: 173643 1 Tablet(s) PO QD No Start Date Active Bystolic 5 mg tablet RxNorm: 884621 1 Tablet(s) PO NOON No Start Date Active sumatriptan 100 mg t ablet RxNorm: 389783 1 Tablet(s) PO at hea dache onset. May repeat in 2 hours if headache remains No Start Date 11/03/2016 Inactive warfarin 7.5 mg tablet RxNorm: 309606 1 Tablet(s) PO three times weekly No Start Date 09/19/2016 Inactive ondansetron HCl 4 mg tablet RxNorm: 957896 1 Tablet(s) PO Q4H as needed for nausea No Start Date 02/23/2018 Inactive Imitrex 100 mg tablet RxNorm: 952463 1 Tablet(s) PO at headache onset and may repeat in 2 hours if needed No Start Date 12/04/2015 Inactive Vitamin B12 1000mcg Tablet RxNorm: 1/2 Tablet(s) PO on , T hurs, Sat and Sun and 1 tab all other days No Start Date 04/01/2018 Inactive baclofen 10 mg tablet RxNorm: 314240 1/2 Tablet(s) PO QAM and 1 tablet at bed time No Start Date 07/26/2015 Inactive tizanidine 4 mg tablet RxNorm: 571369 1-2 Tablet(s) PO QHS as needed for muscl e spasm and sleep No Start Date 06/02/2016 Inactive Flexeril 5 mg tablet RxNorm: 648195 1 Tablet(s) PO QD No Start Date 10/09/2015 Inactive methotrexate (PF) 20 mg/0.4 mL subcutaneous auto-injector RxNorm: 9966840 SQ QW No Start Date 12/25/2016 Inactive Bystolic 5 mg tablet RxNorm: 766538 1 Tablet(s) PO as needed No Start Date 03/15/2018 Inactive Questran Light 4 gra m powder for susp in a packet RxNorm: 242875 1 PO QD No Start Date 11/12/2015 Inactive Bystolic 10 mg tablet RxNorm: 782950 1 Tablet(s) PO QAM No Start Date 11/04/2017 Inactive warfarin 5 mg tablet RxNorm: 027993 1 Tablet(s) PO Fri Sun No Start Date 06/17/2017 Inactive hydrocodone 10 mg-ac etaminophen 325 mg tablet RxNorm: 700082 1 Tablet(s) PO 4-6hou rs as needed for pain No Start Date 08/31/2015 Inactive cyclobenzaprine 5 mg tablet RxNorm: 640118 1 Tablet(s) PO QPM No Start Date 12/16/2016 Inactive Lovenox 100 mg/mL carmona bcutaneous syringe RxNorm: 047927 1 Milliliter(s) SQ QD No Start Date 06/07/2015 Inactive Levsin 0.125 mg tablet RxNorm: 5761463 1 Tablet(s) PO QID as needed for spasm No Start Date 02/24/2017 Inactive Savella 12.5 mg (5)- 25 mg(8)-50mg(42) tablets in a dose pack RxNorm: 292152 Tablet(s) PO as directed No Start Date 07/09/2015 Inactive Coumadin 10 mg tablet RxNorm: 156769 1 Tablet(s) PO QD No Start Date 2015 Inactive tramadol 50 mg tablet RxNorm: 648630 1 Tablet(s) PO TID as needed for pain No Start Date 03/31/2017 Inactive BuSpar 5 mg tablet RxNorm: 774656 1 Tablet(s) PO BID No Start Date 02/02/2017 Inactive Vistaril 25 mg capsule RxNorm: 110470 1 Capsule(s) PO BID No Start Date 06/19/2015 Inactive Tessalon Perles 100 mg capsule RxNorm: 230265 1 Capsule(s) PO TID a s needed for cough No Start Date 01/19/2019 Inactive promethazine 12.5 mg tablet RxNorm: 444880 1 Tablet(s) PO Q6H as needed No Start Date 04/22/2018 Inactive Coumadin 7.5 mg tablet RxNorm: 816696 1 Tablet(s) PO Fri and Friday No Start Date 03/13/2016 Inactive Imitrex 50 mg tablet RxNorm: 507731 1 Tablet(s) PO at headache. repeat in 2 hours if no relief. no more than 2 tabs per day No Start Date 12/25/2017 Inactive acetazolamide 125 mg tablet RxNorm: 765449 1 Tablet(s) PO BID No Start Date 09/13/2015 Inactive methotrexate (PF) 12 .5 mg/0.4 mL subcutaneous auto-injector RxNorm: 3288057 1 Milliliter(s) SQ QW No Start Date 03/31/2017 Inactive Bystolic 10 mg tablet RxNorm: 388185 1 Tablet(s) PO QAM No Start Date 03/25/2018 Inactive Zithromax Z-Juan Francisco 250 mg tablet RxNorm: 455070 Tablet(s) PO As Direc liane No Start Date 05/11/2017 Inactive Bystolic 20 mg tablet RxNorm: 805049 1 Tablet(s) PO QD No Start Date 03/15/2018 Inactive Questran 4 gram powd er for susp in a packet RxNorm: 378086 1 Unit(s) PO QD No Start Date 12/16/2016 Inactive Vitamin D3 1,000 uni t tablet RxNorm: 488375 1 Tablet(s) PO QD No Start Date 04/01/2018 Inactive Coumadin 5 mg tablet RxNorm: 344099 1 Tablet(s) PO Friday through Friday No Start Date 03/13/2016 Inactive warfarin 5 mg tablet RxNorm: 172182 1 Tablet(s) PO four days per week No Start Date 04/01/2018 Inactive ProAir HFA 90 mcg/ac tuation aerosol inhaler RxNorm: 368148 2 Puff(s) INH Q4H as needed No Start Date 01/19/2019 Inactive Bystolic 5 mg tablet RxNorm: 880933 1 Tablet(s) PO QHS No Start Date 03/25/2018 Inactive Compazine 10 mg tablet RxNorm: 135943 1 Tablet(s) PO TID as needed for nausea No Start Date 12/17/2016 Inactive Pyridium 200 mg tablet RxNorm: 9563291 1 Tablet(s) PO TID for bladder spasms No Start Date 02/26/2017 Inactive hydrocodone 10 mg-ac etaminophen 325 mg tablet RxNorm: 414017 1 Tablet(s) PO as nee ded No Start Date 06/28/2015 Inactive warfarin 7.5 mg tablet RxNorm: 607522 1 Tablet(s) PO on Friday and No Start Date 04/01/2018 Inactive promethazine 25 mg t ablet RxNorm: 221316 1 Tablet(s) PO Q4H as needed for nausea No Start Date 12/04/2015 Inactive Lovenox 30 mg/0.3 mL subcutaneous syringe RxNorm: 629866 1 Milliliter(s) SQ QD No Start Date 06/07/2015 Inactive Vitamin B12 1000mcg Tablet RxNorm: 1/2 Tablet(s) PO QD No Start Date 12/02/2017 Inactive Vitamin B12 1000mcg Tablet RxNorm: 1 Tablet(s) PO M// QD No Start Date 12/02/2017 Inactive Medication Administered No Medication Administered data Immunizations Vaccine Codes Date Status Influenza CVX: 141 03/24 completed Assessments Condition Codes Effectiv e Dates Other fatigue ICD-10: R53.83 ICD-9: 780.79 01/19/2019 COUGH ICD-10: R05 ICD-9: 786.2 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 ICD-9: [...] and perineal pain ICD-10: R10 .2 ICD-9: [id number] 02/10/2017 Hematuria, unspecified ICD-10: R31.9 ICD-9: 599.70 [...] Visit Reason For Visit Effective Dates Notes sore throat 01/19/2019 otalgia 01/04/2019 lab draw [...] Code Result Date ANTI STREPTOLYSIN O TITER(ASO) 67894 ASO Titr 110 IU/mL 9 MYCOPLASMA ANTIBODY, IFA 43315A7 Mycoplas Ab IgG 1:64 01/20/2019 MYCOPLASMA ANTIBODY, IFA 54458I2 Mycoplas Ab IgM <1:10 01/20/2019 MYCOPLASMA ANTIBODY, IFA [id number] Mycoplasma Intp See Below 01/20/2019 LEGIONELLA 6701309 Legio adore Ab <1:128 01/20/2019 HEPATIC FUNCTION PANEL A 04303 Total Protein 6.3 g/dL 01/19/2019 HEPATIC FUNCTION PANEL A 70552 AST 16 U/L 01/19/2019 HEPATIC FUNCTION PANEL A 47805 ALK PHOS 52 U/L 01/19/2019 HEPATIC FUNCTION PANEL A 45598 Bili Total 0.2 mg/dL 01/19/2019 HEPATIC FUNCTION PANEL A 53129 ALT 20 U/L 01/19/2019 HEPATIC FUNCTION PANEL A 37431 ALBUMIN 4.3 g/dL 01/19/2019 HEPATIC FUNCTION PANEL A 98885 Bili Direct 0.1 mg/dL 01/19/2019 PT 4995557 PT 27.5 Seconds 01/19/2019 PT 0271764 INR 2.6 01/19/2019 COMPLETE BLOOD COUNT 1293941 WBC 11.1 10e9/L 01/19/2019 COMPLETE BLOOD COUNT 0657052 RBC 4.14 10e12/L 9 COMPLETE BLOOD COUNT 7279783 HEMOGLOBIN 13.9 g/dL 01/19/2019 COMPLETE BLOOD COUNT 1533646 HEMATOCRIT 40.7 % 01/19/2019 COMPLETE BLOOD COUNT 2959924 MCV 98.3 fL 01/19/2019 COMPLETE BLOOD COUNT 1935234 MCH 33.6 pg 01/19/2019 COMPLETE BLOOD COUNT 5615974 MCHC 34.2 g/dL 01/19/2019 COMPLETE BLOOD COUNT 8622366 PLATELET COUNT 334 10e9/L 01/19/2019 COMPLETE BLOOD COUNT 0364237 Mean Plt Volume 8.9 fL 01/19/2019 COMPLETE BLOOD COUNT 0395228 Neut Auto 60.2 % 01/19/2019 COMPLETE BLOOD COUNT 0062199 Lymph Auto 32.5 % 01/19/2019 COMPLETE BLOOD COUNT 0494142 Ida Auto 6.1 % 01/19/2019 COMPLETE BLOOD COUNT 3242405 RDW 12.5 % 01/19/2019 COMPLETE BLOOD COUNT 2036550 Eos Auto 1.0 % 01/19/2019 COMPLETE BLOOD COUNT 5722037 Baso Auto 0.2 % 01/19/2019 COMPLETE BLOOD COUNT 5081634 Neutrophil Abs 6.68 10e9/L 01/19/2019 COMPLETE BLOOD COUNT 9988116 Lymphocyte Abs 3.61 10e9/L 01/19/2019 COMPLETE BLOOD COUNT 0490539 Monocyte Abs 0.68 10e9/L 01/19/2019 COMPLETE BLOOD COUNT 4974625 Eosinophil Abs 0.11 10e9/L 01/19/2019 COMPLETE BLOOD COUNT 1128959 RDW-SD 43.4 fL 01/19/2019 COMPLETE BLOOD COUNT 0111346 Basophil Abs 0.02 10e9/L 01/19/2019 COMPLETE BLOOD COUNT 4861863 WBC 7.4 10e9/L 12/18/2018 COMPLETE BLOOD COUNT 1555820 RBC 4.32 10e12/L 201 9 COMPLETE BLOOD COUNT 4062971 HEMOGLOBIN 14.2 g/dL 12/18/2018 COMPLETE BLOOD COUNT 6393846 HEMATOCRIT 42.0 % 12/18/2018 COMPLETE BLOOD COUNT 4053963 MCV 97.2 fL 12/18/2018 COMPLETE BLOOD COUNT 8985009 MCH 32.9 pg 12/18/2018 COMPLETE BLOOD COUNT 9330123 MCHC 33.8 g/dL 12/18/2018 COMPLETE BLOOD COUNT 8132538 PLATELET COUNT 273 10e9/L 12/18/2018 COMPLETE BLOOD COUNT 9109927 Mean Plt Volume 9.4 fL 12/18/2018 COMPLETE BLOOD COUNT 9208403 Neut Auto 57.7 % 12/18/2018 COMPLETE BLOOD COUNT 9524314 Lymph Auto 34.8 % 12/18/2018 COMPLETE BLOOD COUNT 6304561 Ida Auto 6.4 % 12/18/2018 COMPLETE BLOOD COUNT 6355611 RDW 12.6 % 12/18/2018 COMPLETE BLOOD COUNT 4429248 Eos Auto 0.8 % 12/18/2018 COMPLETE BLOOD COUNT 2913703 Baso Auto 0.3 % 12/18/2018 COMPLETE BLOOD COUNT 5936772 Neutrophil Abs 4.27 10e9/L 12/18/2018 COMPLETE BLOOD COUNT 3595992 Lymphocyte Abs 2.58 10e9/L 12/18/2018 COMPLETE BLOOD COUNT 8622753 Monocyte Abs 0.47 10e9/L 12/18/2018 COMPLETE BLOOD COUNT 9294256 Eosinophil Abs 0.06 10e9/L 12/18/2018 COMPLETE BLOOD COUNT 4118476 RDW-SD 43.8 fL 12/18/2018 COMPLETE BLOOD COUNT 0084583 Basophil Abs 0.02 10e9/L 12/18/2018 GFR CALC 9722329 GFR Non Afr Amr >60 mL/min 12/18/2018 GFR CALC 2565238 GFR Afr Amr >60 mL/min 12/18/2018 COMPREHENSIVE METABOLIC 38617 AST 33 U/L 12/18/2018 COMPREHENSIVE METABOLIC 15725 ALT 60 U/L 12/18/2018 COMPREHENSIVE METABOLIC 71566 BUN 9 mg/dL 12/18/2018 COMPREHENSIVE METABOLIC 76472 ALBUMIN 4.3 g/dL 12/18/2018 COMPREHENSIVE METABOLIC 79503 CHLORIDE 104 mmol/L 12/18/2018 COMPREHENSIVE METABOLIC 92774 Bili Total 0.3 mg/dL 12/18/2018 COMPREHENSIVE METABOLIC 52474 ALK PHOS 63 U/L 12/18/2018 COMPREHENSIVE METABOLIC 00097 SODIUM 139 mmol/L 12/18/2018 COMPREHENSIVE METABOLIC 12598 CREATININE 0.55 mg/dL 12/18/2018 COMPREHENSIVE METABOLIC 39225 CALCIUM 9.0 mg/dL 12/18/2018 COMPREHENSIVE METABOLIC 57937 POTASSIUM 3.9 mmol/L 12/18/2018 COMPREHENSIVE METABOLIC 10181 Total Protein 6.4 g/dL 12/18/2018 COMPREHENSIVE METABOLIC 99944 Glucose 83 mg/dL 12/18/2018 COMPREHENSIVE METABOLIC 32264 Bicarbonate 27 mmol/L 12/18/2018 COMPREHENSIVE METABOLIC 65543 AGAP 8 mmol/L 12/18/2018 ERYTHROCYTE SEDIMENTATION RATE 83138 Sed Rate 17 mm/hr 12/04/2018 MEAN GLUC 6783109 Calc M zach Gluc 108 mg/dL 12/03/2018 VITAMIN B 12 33434 VITAM IN B12 329 pg/mL 12/03/2018 COMPREHENSIVE METABOLIC 21788 AST 18 U/L 12/03/2018 COMPREHENSIVE METABOLIC 03236 ALT 21 U/L 12/03/2018 COMPREHENSIVE METABOLIC 73596 BUN 11 mg/dL 12/03/2018 COMPREHENSIVE METABOLIC 69127 ALBUMIN 4.5 g/dL 12/03/2018 COMPREHENSIVE METABOLIC 25844 CHLORIDE 106 mmol/L 12/03/2018 COMPREHENSIVE METABOLIC 12353 Bili Total 0.4 mg/dL 12/03/2018 COMPREHENSIVE METABOLIC 30497 ALK PHOS 49 U/L 12/03/2018 COMPREHENSIVE METABOLIC 91389 SODIUM 138 mmol/L 12/03/2018 COMPREHENSIVE METABOLIC 80896 CREATININE 0.61 mg/dL 12/03/2018 COMPREHENSIVE METABOLIC 28490 CALCIUM 9.2 mg/dL 12/03/2018 COMPREHENSIVE METABOLIC 73171 POTASSIUM 3.7 mmol/L 12/03/2018 COMPREHENSIVE METABOLIC 83471 Total Protein 6.8 g/dL 12/03/2018 COMPREHENSIVE METABOLIC 10145 Glucose 94 mg/dL 12/03/2018 COMPREHENSIVE METABOLIC 40385 Bicarbonate 25 mmol/L 12/03/2018 COMPREHENSIVE METABOLIC 71218 AGAP 7 mmol/L 12/03/2018 FREE T4 50063 T4 Free 0.96 ng/dL 12/03/2018 ASSAY TRIIODOTHYRONINE (T3) 46661 T3 Total 1.02 ng/mL 12/03/2018 GFR CALC 5358077 GFR Non Afr Amr >60 mL/min 12/03/2018 GFR CALC 4972444 GFR Afr Amr >60 mL/min 12/03/2018 GLYCOSYLATED HEMOGLOBIN TEST 44158 Hgb A1c 82193-8 5.4 % 12/03/2018 VITAMIN D TOTAL (25 HYDROXY) 62919 Vitamin D 25 OH 11.1 ng/mL 12/03/2018 IRON 88537 Iron 106 ug/dL 12/03/2018 THYROID STIMULATING HORMONE 64567 TSH 0.978 uIU/mL 9 COMPLETE BLOOD COUNT 4157488 WBC 9.4 10e9/L 12/03/2018 COMPLETE BLOOD COUNT 8506486 RBC 4.41 10e12/L 9 COMPLETE BLOOD COUNT 5624202 HEMOGLOBIN 14.5 g/dL 12/03/2018 COMPLETE BLOOD COUNT 6643799 HEMATOCRIT 43.0 % 12/03/2018 COMPLETE BLOOD COUNT 7716392 MCV 97.5 fL 12/03/2018 COMPLETE BLOOD COUNT 3972268 MCH 32.9 pg 12/03/2018 COMPLETE BLOOD COUNT 9612072 MCHC 33.7 g/dL 12/03/2018 COMPLETE BLOOD COUNT 2298127 PLATELET COUNT 336 10e9/L 12/03/2018 COMPLETE BLOOD COUNT 1559934 Mean Plt Volume 9.1 fL 12/03/2018 COMPLETE BLOOD COUNT 8288997 Neut Auto 56.4 % 12/03/2018 COMPLETE BLOOD COUNT 5538495 Lymph Auto 35.6 % 12/03/2018 COMPLETE BLOOD COUNT 4097699 Ida Auto 6.8 % 12/03/2018 COMPLETE BLOOD COUNT 8193044 RDW 12.6 % 12/03/2018 COMPLETE BLOOD COUNT 7423511 Eos Auto 1.0 % 12/03/2018 COMPLETE BLOOD COUNT 7565886 Baso Auto 0.2 % 12/03/2018 COMPLETE BLOOD COUNT 9963623 Neutrophil Abs 5.30 10e9/L 12/03/2018 COMPLETE BLOOD COUNT 7886377 Lymphocyte Abs 3.35 10e9/L 12/03/2018 COMPLETE BLOOD COUNT 3255617 Monocyte Abs 0.64 10e9/L 12/03/2018 COMPLETE BLOOD COUNT 0751120 Eosinophil Abs 0.09 10e9/L 12/03/2018 COMPLETE BLOOD COUNT 4773969 RDW-SD 44.3 fL 12/03/2018 COMPLETE BLOOD COUNT 8425290 Basophil Abs 0.02 10e9/L 12/03/2018 FERRITIN 37325 FERRITIN 87.8 ng/mL 12/03/2018 PT 2721109 PT 23.1 Seconds 11/30/2018 PT 7013253 INR 2.0 11/30/2018 ANTI STREPTOLYSIN O TITER(ASO) 83121 ASO Titr 117 IU/mL 9 COMPLETE BLOOD COUNT 5697270 WBC 10.7 10e9/L 11/11/2018 COMPLETE BLOOD COUNT 1788764 RBC 4.42 10e12/L 9 COMPLETE BLOOD COUNT 8595566 HEMOGLOBIN 14.5 g/dL 11/11/2018 COMPLETE BLOOD COUNT 2028479 HEMATOCRIT 43.1 % 11/11/2018 COMPLETE BLOOD COUNT 3275101 MCV 97.5 fL 11/11/2018 COMPLETE BLOOD COUNT 8632625 MCH 32.8 pg 11/11/2018 COMPLETE BLOOD COUNT 1673650 MCHC 33.6 g/dL 11/11/2018 COMPLETE BLOOD COUNT 5423560 PLATELET COUNT 324 10e9/L 11/11/2018 COMPLETE BLOOD COUNT 8576594 Mean Plt Volume 9.2 fL 11/11/2018 COMPLETE BLOOD COUNT 9536869 Neut Auto 62.3 % 11/11/2018 COMPLETE BLOOD COUNT 3692171 Lymph Auto 30.8 % 11/11/2018 COMPLETE BLOOD COUNT 7787359 Ida Auto 6.1 % 11/11/2018 COMPLETE BLOOD COUNT 1480195 RDW 12.7 % 11/11/2018 COMPLETE BLOOD COUNT 5429571 Eos Auto 0.7 % 11/11/2018 COMPLETE BLOOD COUNT 4112291 Baso Auto 0.1 % 11/11/2018 COMPLETE BLOOD COUNT 3858350 Neutrophil Abs 6.67 10e9/L 11/11/2018 COMPLETE BLOOD COUNT 0383669 Lymphocyte Abs 3.30 10e9/L 11/11/2018 COMPLETE BLOOD COUNT 0767047 Monocyte Abs 0.65 10e9/L 11/11/2018 COMPLETE BLOOD COUNT 3189840 Eosinophil Abs 0.07 10e9/L 11/11/2018 COMPLETE BLOOD COUNT 2488930 RDW-SD 44.3 fL 11/11/2018 COMPLETE BLOOD COUNT 7502306 Basophil Abs 0.01 10e9/L 11/11/2018 PT 8312664 PT 23.4 Seconds 10/27/2018 PT 5599846 INR 2.0 10/27/2018 COMPLETE BLOOD COUNT 0297156 WBC 8.1 10e9/L 09/25/2018 COMPLETE BLOOD COUNT 1398402 RBC 4.37 10e12/L 9 COMPLETE BLOOD COUNT 7740259 HEMOGLOBIN 14.5 g/dL 09/25/2018 COMPLETE BLOOD COUNT 8665251 HEMATOCRIT 42.1 % 09/25/2018 COMPLETE BLOOD COUNT 4525396 MCV 96.3 fL 09/25/2018 COMPLETE BLOOD COUNT 4290932 MCH 33.2 pg 09/25/2018 COMPLETE BLOOD COUNT 8254217 MCHC 34.4 g/dL 09/25/2018 COMPLETE BLOOD COUNT 8777029 PLATELET COUNT 313 10e9/L 09/25/2018 COMPLETE BLOOD COUNT 2162412 Mean Plt Volume 9.2 fL 09/25/2018 COMPLETE BLOOD COUNT 4406944 Neut Auto 57.4 % 09/25/2018 COMPLETE BLOOD COUNT 6021169 Lymph Auto 35.0 % 09/25/2018 COMPLETE BLOOD COUNT 1811678 Ida Auto 6.3 % 09/25/2018 COMPLETE BLOOD COUNT 1921430 RDW 12.6 % 09/25/2018 COMPLETE BLOOD COUNT 8661409 Eos Auto 1.1 % 09/25/2018 COMPLETE BLOOD COUNT 8117571 Baso Auto 0.2 % 09/25/2018 COMPLETE BLOOD COUNT 7009359 Neutrophil Abs 4.65 10e9/L 09/25/2018 COMPLETE BLOOD COUNT 4869628 Lymphocyte Abs 2.84 10e9/L 09/25/2018 COMPLETE BLOOD COUNT 4625440 Monocyte Abs 0.51 10e9/L 09/25/2018 COMPLETE BLOOD COUNT 2964493 Eosinophil Abs 0.09 10e9/L 09/25/2018 COMPLETE BLOOD COUNT 4311860 RDW-SD 43.0 fL 09/25/2018 COMPLETE BLOOD COUNT 1977047 Basophil Abs 0.02 10e9/L 09/25/2018 COMPREHENSIVE METABOLIC 04804 AST 15 U/L 09/25/2018 COMPREHENSIVE METABOLIC 75933 ALT 20 U/L 09/25/2018 COMPREHENSIVE METABOLIC 04031 BUN 9 mg/dL 09/25/2018 COMPREHENSIVE METABOLIC 02320 ALBUMIN 4.3 g/dL 09/25/2018 COMPREHENSIVE METABOLIC 19405 CHLORIDE 107 mmol/L 09/25/2018 COMPREHENSIVE METABOLIC 85052 Bili Total 0.4 mg/dL 09/25/2018 COMPREHENSIVE METABOLIC 59004 ALK PHOS 51 U/L 09/25/2018 COMPREHENSIVE METABOLIC 15504 SODIUM 139 mmol/L 09/25/2018 COMPREHENSIVE METABOLIC 66786 CREATININE 0.61 mg/dL 09/25/2018 COMPREHENSIVE METABOLIC 73158 CALCIUM 9.1 mg/dL 09/25/2018 COMPREHENSIVE METABOLIC 85622 POTASSIUM 3.7 mmol/L 09/25/2018 COMPREHENSIVE METABOLIC 95973 Total Protein 6.3 g/dL 09/25/2018 COMPREHENSIVE METABOLIC 01765 Glucose 92 mg/dL 09/25/2018 COMPREHENSIVE METABOLIC 33804 Bicarbonate 24 mmol/L 09/25/2018 COMPREHENSIVE METABOLIC 32181 AGAP 8 mmol/L 09/25/2018 PT 2486073 PT 25.0 Seconds 09/25/2018 PT [id number] INR 2.2 09/25/2018 GFR CALC 7601151 GFR Non Afr Amr >60 mL/min 09/25/2018 GFR CALC 5842791 GFR Afr Amr >60 mL/min 09/25/2018 PT 7846171 PT 25.7 Seconds 05/12/2018 PT 7973256 INR 2.3 05/12/2018 PT 0330804 PT TNP:Improper Specimen 04/30/2018 PT [id number] INR TNP:Improper Specimen 04/30/2018 PT 9527741 PT 26.3 Seconds 02/05/2018 PT 6592306 INR 2.4 02/05/2018 ANTI STREPTOLYSIN O TITER(ASO) 05825 ASO Titr 118 IU/mL 8 VITAMIN B 12 07734 VITAM IN B12 302 pg/mL 12/02/2017 VITAMIN D TOTAL (25 HYDROXY) 87043 Vitamin D 25 OH 27.0 ng/mL 12/02/2017 PT 9317561 PT 17.3 Seconds 12/01/2017 PT 5391419 INR 1.4 12/01/2017 ANTI STREPTOLYSIN O TITER(ASO) 58050 ASO Titr 127 IU/mL 8 ANTI STREPTOLYSIN O TITER(ASO) 34087 ASO Titr 130 IU/mL 8 ANTINUCLEAR ANTIBODY SCREEN 48709 MAGALIE Ab Scr <1:80 10/02/2017 RA FACTOR 92052 RA FACTOR <20 IU/mL 10/02/2017 RA FACTOR 62586 RA Facto r Intp Negative 10/02/2017 VITAMIN D TOTAL (25 HYDROXY) 06459 Vitamin D 25 OH 18 ng/mL 8 IRON 65603 Iron 70 ug/dL 10/01/2017 VITAMIN B 12 18721 VITAM IN B12 377 pg/mL 10/01/2017 FREE T4 98367 T4 Free 1.31 ng/dL 10/01/2017 URIC ACID 41678 URIC ACID 3.9 mg/dL 10/01/2017 FERRITIN 58287 FERRITIN 68.0 ng/mL 10/01/2017 THYROID STIMULATING HORMONE 66630 TSH 1.401 uIU/mL 8 GLYCOSYLATED HEMOGLOBIN TEST 66033 Hgb A1c 73076-7 5.4 % 10/01/2017 FOLIC ACID 00700 Folate >24.0 ng/mL 10/01/2017 ASSAY TRIIODOTHYRONINE (T3) 67368 T3 Total 1.0 ng/mL 10/01/2017 ERYTHROCYTE SEDIMENTATION RATE 36492 Sed Rate 5 mm/hr 10/01/2017 MEAN GLUC 7189114 Calc M zach Gluc 108 mg/dL 10/01/2017 PT 4199860 PT 18.6 Seconds 08/07/2017 PT 9125818 INR 1.5 08/07/2017 COMPREHENSIVE METABOLIC 14606 AST 21 U/L 08/07/2017 COMPREHENSIVE METABOLIC 93033 ALT 37 U/L 08/07/2017 COMPREHENSIVE METABOLIC 82909 BUN 14 mg/dL 08/07/2017 COMPREHENSIVE METABOLIC 58401 ALBUMIN 4.5 g/dL 08/07/2017 COMPREHENSIVE METABOLIC 73833 CHLORIDE 104 mmol/L 08/07/2017 COMPREHENSIVE METABOLIC 10447 Bili Total 0.3 mg/dL 08/07/2017 COMPREHENSIVE METABOLIC 16881 ALK PHOS 55 U/L 08/07/2017 COMPREHENSIVE METABOLIC 33455 SODIUM 139 mmol/L 08/07/2017 COMPREHENSIVE METABOLIC 12622 CREATININE 0.77 mg/dL 08/07/2017 COMPREHENSIVE METABOLIC 34799 CALCIUM 9.2 mg/dL 08/07/2017 COMPREHENSIVE METABOLIC 75367 POTASSIUM 3.7 mmol/L 08/07/2017 COMPREHENSIVE METABOLIC 42489 Total Protein 6.5 g/dL 08/07/2017 COMPREHENSIVE METABOLIC 62554 Glucose 101 mg/dL 08/07/2017 COMPREHENSIVE METABOLIC 78947 Bicarbonate 25 mmol/L 08/07/2017 COMPREHENSIVE METABOLIC 40702 AGAP 10 mmol/L 08/07/2017 COMPLETE BLOOD COUNT 0745990 WBC 9.4 10e9/L 08/07/2017 COMPLETE BLOOD COUNT 3423200 RBC 4.38 10e12/L 8 COMPLETE BLOOD COUNT 4322261 HEMOGLOBIN 14.5 g/dL 08/07/2017 COMPLETE BLOOD COUNT 7487730 HEMATOCRIT 42.7 % 08/07/2017 COMPLETE BLOOD COUNT 1211783 MCV 97.5 fL 08/07/2017 COMPLETE BLOOD COUNT 8187449 MCH 33.1 pg 08/07/2017 COMPLETE BLOOD COUNT 1162216 MCHC 34.0 g/dL 08/07/2017 COMPLETE BLOOD COUNT 8353113 PLATELET COUNT 313 10e9/L 08/07/2017 COMPLETE BLOOD COUNT 1570951 Mean Plt Volume 8.6 fL 08/07/2017 COMPLETE BLOOD COUNT 8714949 Neut Auto 51.6 % 08/07/2017 COMPLETE BLOOD COUNT 4107657 Lymph Auto 40.0 % 08/07/2017 COMPLETE BLOOD COUNT 8541875 Ida Auto 6.8 % 08/07/2017 COMPLETE BLOOD COUNT 2488192 RDW 12.9 % 08/07/2017 COMPLETE BLOOD COUNT 2212502 Eos Auto 1.4 % 08/07/2017 COMPLETE BLOOD COUNT 6649727 Baso Auto 0.2 % 08/07/2017 COMPLETE BLOOD COUNT 8792356 Neutrophil Abs 4.85 10e9/L 08/07/2017 COMPLETE BLOOD COUNT 2009113 Lymphocyte Abs 3.76 10e9/L 08/07/2017 COMPLETE BLOOD COUNT 1963337 Monocyte Abs 0.64 10e9/L 08/07/2017 COMPLETE BLOOD COUNT 9329035 Eosinophil Abs 0.13 10e9/L 08/07/2017 COMPLETE BLOOD COUNT 7942823 RDW-SD 45.1 fL 08/07/2017 COMPLETE BLOOD COUNT 3236184 Basophil Abs 0.02 10e9/L 08/07/2017 GFR CALC 6697046 GFR Afr Amr >60 mL/min 08/07/2017 GFR CALC 5517993 GFR Non Afr Amr >60 mL/min 08/07/2017 COMPLETE BLOOD COUNT 3272169 WBC 9.2 10e9/L 07/15/2017 COMPLETE BLOOD COUNT 3308783 RBC 4.70 10e12/L 8 COMPLETE BLOOD COUNT 4045173 HEMOGLOBIN 15.4 g/dL 07/15/2017 COMPLETE BLOOD COUNT 2670005 HEMATOCRIT 46.2 % 07/15/2017 COMPLETE BLOOD COUNT 5250998 MCV 98.3 fL 07/15/2017 COMPLETE BLOOD COUNT 3817716 MCH 32.8 pg 07/15/2017 COMPLETE BLOOD COUNT 6666556 MCHC 33.3 g/dL 07/15/2017 COMPLETE BLOOD COUNT 5948812 PLATELET COUNT 348 10e9/L 07/15/2017 COMPLETE BLOOD COUNT 7804232 Mean Plt Volume 8.9 fL 07/15/2017 COMPLETE BLOOD COUNT 7178762 Neut Auto 60.6 % 07/15/2017 COMPLETE BLOOD COUNT 0787832 Lymph Auto 30.9 % 07/15/2017 COMPLETE BLOOD COUNT 0579987 Ida Auto 7.1 % 07/15/2017 COMPLETE BLOOD COUNT 0380247 RDW 13.1 % 07/15/2017 COMPLETE BLOOD COUNT 0859068 Eos Auto 1.2 % 07/15/2017 COMPLETE BLOOD COUNT 5199362 Baso Auto 0.2 % 07/15/2017 COMPLETE BLOOD COUNT 3481577 Neutrophil Abs 5.58 10e9/L 07/15/2017 COMPLETE BLOOD COUNT 4111423 Lymphocyte Abs 2.84 10e9/L 07/15/2017 COMPLETE BLOOD COUNT 5780555 Monocyte Abs 0.65 10e9/L 07/15/2017 COMPLETE BLOOD COUNT 2608963 Eosinophil Abs 0.11 10e9/L 07/15/2017 COMPLETE BLOOD COUNT 6595129 Basophil Abs 0.02 10e9/L 07/15/2017 COMPLETE BLOOD COUNT 2723549 RDW-SD 46.1 fL 07/15/2017 GFR CALC 1976168 GFR Non Afr Amr >60 mL/min 07/15/2017 GFR CALC 9502065 GFR Afr Amr >60 mL/min 07/15/2017 COMPREHENSIVE METABOLIC 03545 AST 16 U/L 07/15/2017 COMPREHENSIVE METABOLIC 63841 ALT 20 U/L 07/15/2017 COMPREHENSIVE METABOLIC 84267 BUN 13 mg/dL 07/15/2017 COMPREHENSIVE METABOLIC 96866 ALBUMIN 4.6 g/dL 07/15/2017 COMPREHENSIVE METABOLIC 95186 CHLORIDE 106 mmol/L 07/15/2017 COMPREHENSIVE METABOLIC 17662 Bili Total 0.3 mg/dL 07/15/2017 COMPREHENSIVE METABOLIC 57847 ALK PHOS 50 U/L 07/15/2017 COMPREHENSIVE METABOLIC 51258 SODIUM 137 mmol/L 07/15/2017 COMPREHENSIVE METABOLIC 07907 CREATININE 0.62 mg/dL 07/15/2017 COMPREHENSIVE METABOLIC 22165 CALCIUM 9.2 mg/dL 07/15/2017 COMPREHENSIVE METABOLIC 86260 POTASSIUM 3.8 mmol/L 07/15/2017 COMPREHENSIVE METABOLIC 61588 Total Protein 6.7 g/dL 07/15/2017 COMPREHENSIVE METABOLIC 37134 Glucose 83 mg/dL 07/15/2017 COMPREHENSIVE METABOLIC 34900 Bicarbonate 30 mmol/L 07/15/2017 COMPREHENSIVE METABOLIC 62152 AGAP 1 mmol/L 07/15/2017 THYROID STIMULATING HORMONE 19861 TSH 2.111 uIU/mL 7 COMPREHENSIVE METABOLIC 05954 AST 33 U/L 08/27/2016 COMPREHENSIVE METABOLIC 36822 ALT 55 U/L 08/27/2016 COMPREHENSIVE METABOLIC 81270 BUN 11 mg/dL 08/27/2016 COMPREHENSIVE METABOLIC 26294 ALBUMIN 4.6 g/dL 08/27/2016 COMPREHENSIVE METABOLIC 76831 CHLORIDE 103 mmol/L 08/27/2016 COMPREHENSIVE METABOLIC 21248 Bili Total 0.3 mg/dL 08/27/2016 COMPREHENSIVE METABOLIC 60492 ALK PHOS 60 U/L 08/27/2016 COMPREHENSIVE METABOLIC 43374 SODIUM 140 mmol/L 08/27/2016 COMPREHENSIVE METABOLIC 14552 CREATININE 0.69 mg/dL 08/27/2016 COMPREHENSIVE METABOLIC 77388 CALCIUM 9.3 mg/dL 08/27/2016 COMPREHENSIVE METABOLIC 12083 POTASSIUM 3.7 mmol/L 08/27/2016 COMPREHENSIVE METABOLIC 78505 Total Protein 6.8 g/dL 08/27/2016 COMPREHENSIVE METABOLIC 03717 Glucose 79 mg/dL 08/27/2016 COMPREHENSIVE METABOLIC 90864 Bicarbonate 25 mmol/L 08/27/2016 COMPREHENSIVE METABOLIC 57920 AGAP 12 mmol/L 08/27/2016 COMPLETE BLOOD COUNT 3180520 WBC 9.4 10e9/L 08/27/2016 COMPLETE BLOOD COUNT 5967642 RBC 4.35 10e12/L 7 COMPLETE BLOOD COUNT 7282855 HEMOGLOBIN 14.2 g/dL 08/27/2016 COMPLETE BLOOD COUNT 3303131 HEMATOCRIT 41.5 % 08/27/2016 COMPLETE BLOOD COUNT 0385831 MCV 95.4 fL 08/27/2016 COMPLETE BLOOD COUNT 4238242 MCH 32.6 pg 08/27/2016 COMPLETE BLOOD COUNT 3388740 MCHC 34.2 g/dL 08/27/2016 COMPLETE BLOOD COUNT 3061249 PLATELET COUNT 289 10e9/L 08/27/2016 COMPLETE BLOOD COUNT 8835746 Mean Plt Volume 9.8 fL 08/27/2016 COMPLETE BLOOD COUNT 9724101 Neut Auto 47.7 % 08/27/2016 COMPLETE BLOOD COUNT 2348307 Lymph Auto 44.2 % 08/27/2016 COMPLETE BLOOD COUNT 9575210 Ida Auto 6.6 % 08/27/2016 COMPLETE BLOOD COUNT 2698332 Eos Auto 1.4 % 08/27/2016 COMPLETE BLOOD COUNT 3220985 RDW 12.9 % 08/27/2016 COMPLETE BLOOD COUNT 5211553 Baso Auto 0.1 % 08/27/2016 COMPLETE BLOOD COUNT 9393050 Neutrophil Abs 4.48 10e9/L 08/27/2016 COMPLETE BLOOD COUNT 8495123 Lymphocyte Abs 4.15 10e9/L 08/27/2016 COMPLETE BLOOD COUNT 7299036 Monocyte Abs 0.62 10e9/L 08/27/2016 COMPLETE BLOOD COUNT 5870372 Eosinophil Abs 0.13 10e9/L 08/27/2016 COMPLETE BLOOD COUNT 0905879 Basophil Abs 0.01 10e9/L 08/27/2016 COMPLETE BLOOD COUNT 1522661 RDW-SD 43.9 fL 08/27/2016 PT 0482597 PT 15.0 Seconds 08/27/2016 PT 2600717 INR 1.2 08/27/2016 GFR CALC 1312248 GFR Non Afr Amr >60 mL/min 08/27/2016 GFR CALC 6085711 GFR Afr Amr >60 mL/min 08/27/2016 GFR CALC 6863215 GFR Non Afr Amr >60 mL/min 05/24/2016 GFR CALC 5556678 GFR Afr Amr >60 mL/min 05/24/2016 COMPREHENSIVE METABOLIC 68017 AST 19 U/L 05/24/2016 COMPREHENSIVE METABOLIC 28573 ALT 23 U/L 05/24/2016 COMPREHENSIVE METABOLIC 73993 BUN 12 mg/dL 05/24/2016 COMPREHENSIVE METABOLIC 56543 ALBUMIN 4.1 g/dL 05/24/2016 COMPREHENSIVE METABOLIC 75657 CHLORIDE 105 mmol/L 05/24/2016 COMPREHENSIVE METABOLIC 62367 Bili Total 0.4 mg/dL 05/24/2016 COMPREHENSIVE METABOLIC 86535 ALK PHOS 52 U/L 05/24/2016 COMPREHENSIVE METABOLIC 01287 SODIUM 136 mmol/L 05/24/2016 COMPREHENSIVE METABOLIC 13223 CREATININE 0.61 mg/dL 05/24/2016 COMPREHENSIVE METABOLIC 09751 CALCIUM 8.8 mg/dL 05/24/2016 COMPREHENSIVE METABOLIC 91288 POTASSIUM 3.8 mmol/L 05/24/2016 COMPREHENSIVE METABOLIC 78794 Total Protein 6.2 g/dL 05/24/2016 COMPREHENSIVE METABOLIC 72006 Glucose 95 mg/dL 05/24/2016 COMPREHENSIVE METABOLIC 48725 Bicarbonate 19 mmol/L 05/24/2016 COMPREHENSIVE METABOLIC 84717 AGAP 12 mmol/L 05/24/2016 PT 3394501 PT 25.7 Seconds 05/24/2016 PT 7784068 INR 2.4 05/24/2016 PT 2130029 PT 22.2 Seconds 04/11/2016 PT 8755761 INR 2.0 04/11/2016 PT 7158637 PT 16.5 Seconds 03/13/2016 PT 8914734 INR 1.4 03/13/2016 THYROID STIMULATING HORMONE 04720 TSH 1.151 uIU/mL 6 COMPLETE BLOOD COUNT 5707070 WBC 10.0 10e9/L 03/12/2016 COMPLETE BLOOD COUNT 0458912 RBC 4.08 10e12/L 6 COMPLETE BLOOD COUNT 6526330 HEMOGLOBIN 13.5 g/dL 03/12/2016 COMPLETE BLOOD COUNT 9017144 HEMATOCRIT 38.8 % 03/12/2016 COMPLETE BLOOD COUNT 2822705 MCV 95.1 fL 03/12/2016 COMPLETE BLOOD COUNT 4512176 MCH 33.1 pg 03/12/2016 COMPLETE BLOOD COUNT 9570652 MCHC 34.8 g/dL 03/12/2016 COMPLETE BLOOD COUNT 9806341 PLATELET COUNT 282 10e9/L 03/12/2016 COMPLETE BLOOD COUNT 9028497 Mean Plt Volume 9.6 fL 03/12/2016 COMPLETE BLOOD COUNT 7442796 Neut Auto 53.5 % 03/12/2016 COMPLETE BLOOD COUNT 3754913 Lymph Auto 39.0 % 03/12/2016 COMPLETE BLOOD COUNT 8121590 Ida Auto 5.9 % 03/12/2016 COMPLETE BLOOD COUNT 7719116 Eos Auto 1.4 % 03/12/2016 COMPLETE BLOOD COUNT 6673362 RDW 12.6 % 03/12/2016 COMPLETE BLOOD COUNT 9473678 Baso Auto 0.2 % 03/12/2016 COMPLETE BLOOD COUNT 5459462 Neutrophil Abs 5.35 10e9/L 03/12/2016 COMPLETE BLOOD COUNT 1131229 Lymphocyte Abs 3.90 10e9/L 03/12/2016 COMPLETE BLOOD COUNT 4023280 Monocyte Abs 0.59 10e9/L 03/12/2016 COMPLETE BLOOD COUNT 3087219 Eosinophil Abs 0.14 10e9/L 03/12/2016 COMPLETE BLOOD COUNT 6536466 Basophil Abs 0.02 10e9/L 03/12/2016 COMPLETE BLOOD COUNT 9147915 RDW-SD 42.7 fL 03/12/2016 COMPREHENSIVE METABOLIC 45042 AST 13 U/L 03/12/2016 COMPREHENSIVE METABOLIC 10882 ALT 11 U/L 03/12/2016 COMPREHENSIVE METABOLIC 83831 BUN 11 mg/dL 03/12/2016 COMPREHENSIVE METABOLIC 87178 ALBUMIN 4.1 g/dL 03/12/2016 COMPREHENSIVE METABOLIC 22674 CHLORIDE 107 mmol/L 03/12/2016 COMPREHENSIVE METABOLIC 95246 Bili Total 0.3 mg/dL 03/12/2016 COMPREHENSIVE METABOLIC 13311 ALK PHOS 41 U/L 03/12/2016 COMPREHENSIVE METABOLIC 35890 SODIUM 137 mmol/L 03/12/2016 COMPREHENSIVE METABOLIC 70069 CREATININE 0.62 mg/dL 03/12/2016 COMPREHENSIVE METABOLIC 24688 CALCIUM 9.0 mg/dL 03/12/2016 COMPREHENSIVE METABOLIC 42952 POTASSIUM 3.8 mmol/L 03/12/2016 COMPREHENSIVE METABOLIC 27218 Total Protein 6.1 g/dL 03/12/2016 COMPREHENSIVE METABOLIC 67791 Glucose 95 mg/dL 03/12/2016 COMPREHENSIVE METABOLIC 95711 Bicarbonate 23 mmol/L 03/12/2016 COMPREHENSIVE METABOLIC 74213 AGAP 7 mmol/L 03/12/2016 GFR CALC 3535283 GFR Afr Amr >60 mL/min 03/12/2016 GFR CALC 5947591 GFR Non Afr Amr >60 mL/min 03/12/2016 PT 8607937 PT 14.4 Seconds 02/12/2016 PT 9074377 INR 1.2 02/12/2016 PT 7167578 PT 26.1 Seconds 02/01/2016 PT 7709307 INR 2.4 02/01/2016 [place] VIRUS VCA G/M + EB[place] + [place] [address]|8 6665 x 2|43009 EBV VCA Ab IgG 3.70 11/13/2015 EB VIR[place] VCA G/M + [place] + [place] [address]|8 6665 x 2|60351 EBV VCA Ab IgM 0.47 11/13/2015 [place] VCA G/M + [place] + [place] [address]|8 6665 x 2|50647 EBV Nuclear Ab 2.24 11/13/2015 [place] VIR[place] VCA G/M + [place] + [place] [address]|8 6665 x 2|92309 EBV Early Ab 1.37 11/13/2015 PT 2414599 PT 18.9 Seconds 11/10/2015 PT 9907958 INR 1.6 11/10/2015 PT 3852143 PT 16.8 Seconds 09/29/2015 PT 8017608 INR 1.4 09/29/2015 COMPLETE BLOOD COUNT 8637026 WBC 9.6 10e9/L 09/29/2015 COMPLETE BLOOD COUNT 8587020 RBC 4.51 10e12/L 6 COMPLETE BLOOD COUNT 1228914 HEMOGLOBIN 14.8 g/dL 09/29/2015 COMPLETE BLOOD COUNT 1857910 HEMATOCRIT 43.3 % 09/29/2015 COMPLETE BLOOD COUNT 0597261 MCV 96.0 fL 09/29/2015 COMPLETE BLOOD COUNT 1913242 MCH 32.8 pg 09/29/2015 COMPLETE BLOOD COUNT 2290163 MCHC 34.2 g/dL 09/29/2015 COMPLETE BLOOD COUNT 5782497 PLATELET COUNT 310 10e9/L 09/29/2015 COMPLETE BLOOD COUNT 9398178 Mean Plt Volume 9.7 fL 09/29/2015 COMPLETE BLOOD COUNT 3082721 Neutrophil 60.3 % 09/29/2015 COMPLETE BLOOD COUNT 9548487 Lymph Auto % 32.4 % 09/29/2015 COMPLETE BLOOD COUNT 0922079 Monocyte Auto % 6.5 % 09/29/2015 COMPLETE BLOOD COUNT 8664822 RDW 12.8 % 09/29/2015 COMPLETE BLOOD COUNT 2067172 Eosinophil 0.7 % 09/29/2015 COMPLETE BLOOD COUNT 0533732 Basophil 0.1 % 09/29/2015 COMPLETE BLOOD COUNT 2879221 Neutrophil Abs 5.79 10e9/L 09/29/2015 COMPLETE BLOOD COUNT 7180934 Lymphoctye Abs 3.11 10e9/L 09/29/2015 COMPLETE BLOOD COUNT 7951879 Monocyte Abs 0.62 10e9/L 09/29/2015 COMPLETE BLOOD COUNT 1999013 Eosinophil Abs 0.07 10e9/L 09/29/2015 COMPLETE BLOOD COUNT 8879650 RDW-SD 43.6 fL 09/29/2015 COMPLETE BLOOD COUNT 5110296 Basophil Abs 0.01 10e9/L 09/29/2015 IRON 03800 Iron 86 ug/dL 09/29/2015 COMPLETE BLOOD COUNT 5417822 WBC 9.6 10e9/L 09/29/2015 COMPLETE BLOOD COUNT 0557251 RBC 4.51 10e12/L 6 COMPLETE BLOOD COUNT 4338025 HEMOGLOBIN 14.8 g/dL 09/29/2015 COMPLETE BLOOD COUNT 8557366 HEMATOCRIT 43.3 % 09/29/2015 COMPLETE BLOOD COUNT 5295302 MCV 96.0 fL 09/29/2015 COMPLETE BLOOD COUNT 5355012 MCH 32.8 pg 09/29/2015 COMPLETE BLOOD COUNT 5154070 MCHC 34.2 g/dL 09/29/2015 COMPLETE BLOOD COUNT 5904382 PLATELET COUNT 310 10e9/L 09/29/2015 COMPLETE BLOOD COUNT 9120229 Mean Plt Volume 9.7 fL 09/29/2015 COMPLETE BLOOD COUNT 2552307 Neutrophil 60.3 % 09/29/2015 COMPLETE BLOOD COUNT 3430377 Lymph Auto % 32.4 % 09/29/2015 COMPLETE BLOOD COUNT 8107218 Monocyte Auto % 6.5 % 09/29/2015 COMPLETE BLOOD COUNT 8341712 RDW 12.8 % 09/29/2015 COMPLETE BLOOD COUNT 5303471 Eosinophil 0.7 % 09/29/2015 COMPLETE BLOOD COUNT 6703215 Basophil 0.1 % 09/29/2015 COMPLETE BLOOD COUNT 9488645 Neutrophil Abs 5.79 10e9/L 09/29/2015 COMPLETE BLOOD COUNT 0351295 Lymphoctye Abs 3.11 10e9/L 09/29/2015 COMPLETE BLOOD COUNT 7767776 Monocyte Abs 0.62 10e9/L 09/29/2015 COMPLETE BLOOD COUNT 6965791 Eosinophil Abs 0.07 10e9/L 09/29/2015 COMPLETE BLOOD COUNT 7773328 RDW-SD 43.6 fL 09/29/2015 COMPLETE BLOOD COUNT 3019849 Basophil Abs 0.01 10e9/L 09/29/2015 PT 5870471 PT 16.8 Seconds 09/29/2015 PT 0391922 INR 1.4 09/29/2015 IRON 61863 Iron 86 ug/dL 09/29/2015 PT [facility] 95600 PRO T PAULIE 19.4 SEC 07/27/2015 PT [facility] 45289 INR M CMC 1.7 07/27/2015 PT [facility] 97626 PRO T PAULIE 21.4 SEC 06/21/2015 PT [facility] 05926 INR M CMC 1.9 06/21/2015 PT [facility] 84720 PRO T PAULIE 24.5 SEC 05/24/2015 PT [facility] 26073 INR M CMC 2.3 05/24/2015 Review of Systems System Result Effective Dates Constitutional fatigue 0 01/19/2019 Constitutional No fever [...] discharge 01/26/2018 Neurologic dizziness 10/2017 Neurologic headache 0710/2017 Ears/Nose/Throat/Neck otalgia 12/25/2017 Constitutional fatigue 0 12/11/2017 [...] Procedures Procedure Codes Date ROUTINE VENIPUNCTURE CPT-4: 70794 01/19/2019 PROTHROMBIN TIME CPT-4: 42945 01/19/2019 COMPLETE CBC W/AUTO DIFF WBC CPT-4: 04908 01/19/2019 ANTISTREPTOLYSIN O T ITER CPT-4: 28968 01/19/2019 HEPATIC FUNCTION PANEL CPT-4: 94060 01/19/2019 MYCOPLASMA ANTIBODY, IFA CPT-4: 18770G6 01/19/2019 RESPIRATORY CULTURE & STAIN CPT-4: 62041 01/19/2019 STREP A ASSAY W/OPTIC CPT-4: 55902 01/19/2019 THER/PROPH/DIAG INJ SC/IM CPT-4: 09239 01/04/2019 TRIAMCINOLONE ACET I [place] NOS CPT-4: J3301 01/04/2019 ROUTINE VENIPUNCTURE CPT-4: 17891 12/18/2018 COMPLETE CBC W/AUTO DIFF WBC CPT-4: 51198 12/18/2018 COMPREHEN METABOLIC PANEL CPT-4: 35531 12/18/2018 HYDRATION IV INFUSIO N INIT CPT-4: 54909 12/16/2018 STREP A ASSAY W/OPTIC CPT-4: 40120 12/02/2018 ROUTINE VENIPUNCTURE CPT-4: 32979 11/30/2018 PT CPT-4: 0046996 11/30/2018 CEFTRIAXONE SODIUM I NJECTION CPT-4: J0696 11/30/2018 THER/PROPH/DIAG INJ SC/IM CPT-4: 68578 11/30/2018 URINE CULTURE/ COLON Y COUNT CPT-4: 90812 11/20/2018 URINALYSIS NONAUTO W /O SCOPE CPT-4: 20086 11/20/2018 CEFTRIAXONE SODIUM I NJECTION CPT-4: J0696 11/12/2018 THER/PROPH/DIAG INJ SC/IM CPT-4: 81485 11/12/2018 STREP A ASSAY W/OPTIC CPT-4: 97131 11/11/2018 CEFTRIAXONE SODIUM I NJECTION CPT-4: J0696 11/11/2018 THER/PROPH/DIAG INJ SC/IM CPT-4: 64027 11/11/2018 ROUTINE VENIPUNCTURE CPT-4: 35613 11/11/2018 ANTISTREPTOLYSIN O T ITER CPT-4: 60446 11/11/2018 COMPLETE CBC W/AUTO DIFF WBC CPT-4: 40780 11/11/2018 ROUTINE VENIPUNCTURE CPT-4: 32136 10/27/2018 PT CPT-4: 6324057 10/27/2018 THER/PROPH/DIAG INJ SC/IM CPT-4: 25363 10/09/2018 TRIAMCINOLONE ACET I NJ NOS CPT-4: J3301 10/09/2018 CEFTRIAXONE SODIUM I NJECTION CPT-4: J0696 10/08/2018 THER/PROPH/DIAG INJ SC/IM CPT-4: 26240 10/08/2018 CEFTRIAXONE SODIUM I NJECTION CPT-4: J0696 10/07/2018 THER/PROPH/DIAG INJ SC/IM CPT-4: 50574 10/07/2018 ROUTINE VENIPUNCTURE CPT-4: 60414 09/25/2018 COMPREHEN METABOLIC PANEL CPT-4: 56892 09/25/2018 COMPLETE CBC W/AUTO DIFF WBC CPT-4: 61154 09/25/2018 PT CPT-4: 6772276 09/25/2018 URINE CULTURE/ COLON Y COUNT CPT-4: 43365 09/10/2018 URINALYSIS NONAUTO W /O SCOPE CPT-4: 25960 09/10/2018 CEFTRIAXONE SODIUM I NJECTION CPT-4: J0696 09/08/2018 THER/PROPH/DIAG INJ SC/IM CPT-4: 30330 09/08/2018 ROUTINE VENIPUNCTURE CPT-4: 99055 08/14/2018 PT CPT-4: 4495859 08/14/2018 CEFTRIAXONE SODIUM I NJECTION CPT-4: J0696 07/02/2018 THER/PROPH/DIAG INJ SC/IM CPT-4: 57327 07/02/2018 THER/PROPH/DIAG INJ SC/IM CPT-4: 26655 07/02/2018 TRIAMCINOLONE ACET I NJ NOS CPT-4: J3301 07/02/2018 ROUTINE VENIPUNCTURE CPT-4: 80367 06/22/2018 ANTISTREPTOLYSIN O T ITER CPT-4: 87092 06/22/2018 ROUTINE VENIPUNCTURE CPT-4: 94118 06/17/2018 PROTHROMBIN TIME CPT-4: 63017 06/17/2018 URINE CULTURE/ COLON Y COUNT CPT-4: 02063 06/17/2018 CEFTRIAXONE SODIUM I NJECTION CPT-4: J0696 05/12/2018 THER/PROPH/DIAG INJ SC/IM CPT-4: 65740 05/12/2018 PROTHROMBIN TIME CPT-4: 69645 05/11/2018 CEFTRIAXONE SODIUM I NJECTION CPT-4: J0696 05/11/2018 THER/PROPH/DIAG INJ SC/IM CPT-4: 04072 05/11/2018 ROUTINE VENIPUNCTURE CPT-4: 62660 04/30/2018 PROTHROMBIN TIME CPT-4: 78199 04/30/2018 THER/PROPH/DIAG INJ SC/IM CPT-4: 17294 04/02/2018 TRIAMCINOLONE ACET I [place] NOS CPT-4: J3301 04/02/2018 IIV4 VACCINE 3 YRS+ IM AND UP CPT-4: 65811 03/24/2018 IMMUNIZATION ADMIN CPT- 4: 70416 03/24/2018 ROUTINE VENIPUNCTURE CPT-4: 49531 03/24/2018 PT CPT-4: 1553244 03/24/2018 PROTHROMBIN TIME CPT-4: 31086 02/24/2018 ROUTINE VENIPUNCTURE CPT-4: 85517 02/24/2018 ROUTINE VENIPUNCTURE CPT-4: 82552 02/05/2018 PROTHROMBIN TIME CPT-4: 39939 02/05/2018 URINE CULTURE/ COLON Y COUNT CPT-4: 07236 02/05/2018 CEFTRIAXONE SODIUM I NJECTION CPT-4: J0696 01/29/2018 THER/PROPH/DIAG INJ SC/IM CPT-4: 51112 01/29/2018 CEFTRIAXONE SODIUM I NJECTION CPT-4: J0696 01/28/2018 THER/PROPH/DIAG INJ SC/IM CPT-4: 01667 01/28/2018 URINALYSIS NONAUTO W /O SCOPE CPT-4: 75236 01/26/2018 URINE CULTURE/ COLON Y COUNT CPT-4: 28505 01/26/2018 ROUTINE VENIPUNCTURE CPT-4: 95098 01/01/2018 PROTHROMBIN TIME CPT-4: 06927 01/01/2018 THER/PROPH/DIAG INJ SC/IM CPT-4: 08829 12/25/2017 TRIAMCINOLONE ACET I [place] NOS CPT-4: J3301 12/25/2017 DEXAMETHASONE SODIUM PHOS CPT-4: J1100 12/25/2017 STREP A ASSAY W/OPTIC CPT-4: 74793 12/11/2017 CEFTRIAXONE SODIUM I NJECTION CPT-4: J0696 12/11/2017 THER/PROPH/DIAG INJ SC/IM CPT-4: 42714 12/11/2017 ROUTINE VENIPUNCTURE CPT-4: 24569 12/01/2017 ANTISTREPTOLYSIN O T ITER CPT-4: 22603 12/01/2017 PROTHROMBIN TIME CPT-4: 44082 12/01/2017 VITAMIN D TOTAL (25 HYDROXY) CPT-4: 72334 12/01/2017 VITAMIN B-12 CPT-4: 13573 12/01/2017 SPECIMEN HANDLING OF FICE-LAB CPT-4: 37875 11/05/2017 ROUTINE VENIPUNCTURE CPT-4: 55511 10/14/2017 ANTISTREPTOLYSIN O T ITER CPT-4: 89368 10/14/2017 ROUTINE VENIPUNCTURE CPT-4: 79649 10/06/2017 PROTHROMBIN TIME CPT-4: 30752 10/06/2017 THER/PROPH/DIAG INJ SC/IM CPT-4: 21957 10/06/2017 TRIAMCINOLONE ACET I NJ NOS CPT-4: J3301 10/06/2017 ROUTINE VENIPUNCTURE CPT-4: 91760 10/01/2017 VITAMIN B-12 CPT-4: 98877 10/01/2017 FOLIC ACID CPT-4: 44353 10/01/2017 ASSAY THYROID STIM H ORMONE CPT-4: 28904 10/01/2017 ASSAY OF FREE THYROXINE CPT-4: 78921 10/01/2017 ASSAY TRIIODOTHYRONI NE (T3) CPT-4: 23966 10/01/2017 ASSAY OF BLOOD/URIC ACID CPT-4: 28551 10/01/2017 RHEUMATOID FACTOR QUANT CPT-4: 66051 10/01/2017 RBC SED RATE AUTOMATED CPT-4: 26255 10/01/2017 ANTISTREPTOLYSIN O T ITER CPT-4: 82937 10/01/2017 ASSAY OF IRON CPT-4: 95340 10/01/2017 ASSAY OF FERRITIN CPT-4: 08865 10/01/2017 ANTINUCLEAR ANTIBODIES CPT-4: 38748 10/01/2017 A1C HPLC CPT-4: 63905 10/01/2017 VITAMIN D TOTAL (25 HYDROXY) CPT-4: 31618 10/01/2017 THER/PROPH/DIAG INJ SC/IM CPT-4: 84235 09/05/2017 TRIAMCINOLONE ACET I NJ NOS CPT-4: J3301 09/05/2017 URINALYSIS NONAUTO W /O SCOPE CPT-4: 99599 09/05/2017 URINE CULTURE/ COLON Y COUNT CPT-4: 57057 09/05/2017 ROUTINE VENIPUNCTURE CPT-4: 13239 09/04/2017 PROTHROMBIN TIME CPT-4: 22514 09/04/2017 ROUTINE VENIPUNCTURE CPT-4: 00875 08/07/2017 COMPLETE CBC W/AUTO DIFF WBC CPT-4: 58619 08/07/2017 COMPREHEN METABOLIC PANEL CPT-4: 73639 08/07/2017 PROTHROMBIN TIME CPT-4: 13998 08/07/2017 INFLUENZA ASSAY W/OPTIC CPT-4: 75606 07/15/2017 ROUTINE VENIPUNCTURE CPT-4: 16250 07/15/2017 COMPREHEN METABOLIC PANEL CPT-4: 71671 07/15/2017 COMPLETE CBC W/AUTO DIFF WBC CPT-4: 39591 07/15/2017 CEFTRIAXONE SODIUM I NJECTION CPT-4: J0696 07/04/2017 THER/PROPH/DIAG INJ SC/IM CPT-4: 99285 07/04/2017 THER/PROPH/DIAG INJ SC/IM CPT-4: 75475 07/04/2017 TRIAMCINOLONE ACET I NJ NOS CPT-4: J3301 07/04/2017 CEFTRIAXONE SODIUM I NJECTION CPT-4: J0696 07/02/2017 THER/PROPH/DIAG INJ SC/IM CPT-4: 20527 07/02/2017 CEFTRIAXONE SODIUM I NJECTION CPT-4: J0696 07/01/2017 THER/PROPH/DIAG INJ SC/IM CPT-4: 49498 07/01/2017 ROUTINE VENIPUNCTURE CPT-4: 53521 06/19/2017 PROTHROMBIN TIME CPT-4: 83003 06/19/2017 THER/PROPH/DIAG INJ SC/IM CPT-4: 73212 04/01/2017 TRIAMCINOLONE ACET I NJ NOS CPT-4: J3301 04/01/2017 ROUTINE VENIPUNCTURE CPT-4: 19009 02/10/2017 PROTHROMBIN TIME CPT-4: 28303 02/10/2017 URINALYSIS NONAUTO W /O SCOPE CPT-4: 76973 02/10/2017 URINE CULTURE/ COLON Y COUNT CPT-4: 96450 02/10/2017 ROUTINE VENIPUNCTURE CPT-4: 26423 02/05/2017 PROTHROMBIN TIME CPT-4: 97425 02/05/2017 THROAT CULTURE CPT-4: 07031 02/03/2017 STREP A ASSAY W/OPTIC CPT-4: 85404 01/13/2017 ROUTINE VENIPUNCTURE CPT-4: 48653 12/18/2016 PROTHROMBIN TIME CPT-4: 62516 12/18/2016 URINE CULTURE/ COLON Y COUNT CPT-4: 52841 08/27/2016 ASSAY THYROID STIM H ORMONE CPT-4: 52689 08/27/2016 COMPREHEN METABOLIC PANEL CPT-4: 36512 08/27/2016 COMPLETE CBC W/AUTO DIFF WBC CPT-4: 75340 08/27/2016 PROTHROMBIN TIME CPT-4: 52839 08/27/2016 ROUTINE VENIPUNCTURE CPT-4: 57130 08/27/2016 ROUTINE VENIPUNCTURE CPT-4: 92737 05/24/2016 COMPREHEN METABOLIC PANEL CPT-4: 47831 05/24/2016 PROTHROMBIN TIME CPT-4: 73448 05/24/2016 URINALYSIS NONAUTO W /O SCOPE CPT-4: 85185 04/23/2016 URINE CULTURE/ COLON Y COUNT CPT-4: 99341 04/23/2016 PRESCRIP TRANSMIT A ERX SY CPT-4: G8553 04/23/2016 AEROBIC WOUND CULTUR E & STN CPT-4: 06279 04/17/2016 ROUTINE VENIPUNCTURE CPT-4: 14075 04/11/2016 PROTHROMBIN TIME CPT-4: 07441 04/11/2016 ROUTINE VENIPUNCTURE CPT-4: 87782 03/12/2016 COMPLETE CBC W/AUTO DIFF WBC CPT-4: 41133 03/12/2016 COMPREHEN METABOLIC PANEL CPT-4: 22386 03/12/2016 ASSAY THYROID STIM H ORMONE CPT-4: 91353 03/12/2016 PROTHROMBIN TIME CPT-4: 06678 03/12/2016 ROUTINE VENIPUNCTURE CPT-4: 75135 02/12/2016 PROTHROMBIN TIME CPT-4: 10024 02/12/2016 ROUTINE VENIPUNCTURE CPT-4: 94432 02/01/2016 PROTHROMBIN TIME CPT-4: 92855 02/01/2016 ROUTINE VENIPUNCTURE CPT-4: 09960 01/22/2016 PROTHROMBIN TIME CPT-4: 40604 01/22/2016 ROUTINE VENIPUNCTURE CPT-4: 54349 11/10/2015 PROTHROMBIN TIME CPT-4: 88194 11/10/2015 CEFTRIAXONE SODIUM I NJECTION CPT-4: J0696 11/10/2015 THER/PROPH/DIAG INJ SC/IM CPT-4: 54668 11/10/2015 EB VIRUS VCA G/M + E BNA + EA CPT-4: 47169|84155 x 2|56602 016 THROAT CULTURE CPT-4: 67437 11/09/2015 STREP A ASSAY W/OPTIC CPT-4: 00144 11/09/2015 STREP A ASSAY W/OPTIC CPT-4: 75458 10/02/2015 ROUTINE VENIPUNCTURE CPT-4: 07808 09/29/2015 COMPLETE CBC W/AUTO DIFF WBC CPT-4: 20505 09/29/2015 ASSAY OF IRON CPT-4: 03113 09/29/2015 PROTHROMBIN TIME CPT-4: 41107 09/29/2015 ROUTINE VENIPUNCTURE CPT-4: 63710 07/27/2015 PROTHROMBIN TIME CPT-4: 09251 07/27/2015 URINALYSIS NONAUTO W /O SCOPE CPT-4: 41098 06/30/2015 URINE CULTURE/ COLON Y COUNT CPT-4: 87554 06/30/2015 ROUTINE VENIPUNCTURE CPT-4: 36134 06/21/2015 PROTHROMBIN TIME CPT-4: 39726 06/21/2015 URINE CULTURE/ COLON Y COUNT CPT-4: 95804 05/31/2015 ROUTINE VENIPUNCTURE CPT-4: 09299 05/24/2015 PROTHROMBIN TIME CPT-4: 62360 05/24/2015 URINALYSIS NONAUTO W /O SCOPE CPT-4: 28688 05/24/2015 Vital Signs Date Vital 01/19/2019 Blood Pressure 1: 130/80 Code: 8480-6 [...] 1: 122/70 Code: 8480-6 BMI: 32.2 Code: 99720-1 Heart Rate 1: 88 bpm Height: 5'3" Respiratory Rate: 20 bpm SpO2: 96% Temperature: 36.8 (C ) / 98.2 (F) Weight: 182 lbs 07/23/2018 Blood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 instructed to call or rtc with any new or worsening concerns. tylenol prn pain. ICD-9 : 382.00 ICD-10 : H66.002 11/30/2018 Appointment: Jose DanielIvon Jovana [address] ACUTE ILLNESS 11/30/2018 Patient Education: Coumadin- OptimizeRX Coupon [id number] https://www.[facility]/sampleIDEAglobal/resources/getResource/61/[email or web address] Completed 11/30/2018 Appointment: Kristine Brambila WPtel: [address] [place] [address] UA 11/20/2018 Appointment: Kristine Brambila WPtel: [address] [place] [address] US INJECTION 11/12/2018 Visit Diagnosis Plan: Streptococcal pharyngitis Discussion: Strep A- positive ASO titer today along with CBC. Rocephin 1 gram. RTC tmrw for another injection. Patient states understanding. ICD-9 : 034.0 ICD-10 : J02.0 11/11/2018 Appointment: Lulu Navarro [address] [place] [address] ACUTE ILLNESS 11/11/2018 Appointment: Kristine Brambila WPtel: [address] [place] [address] ACUTE ILLNESS 10/27/2018 Appointment: Kristine Brambila WPtel: [address] [place] [address] US INJECTION 10/09/2018 Visit Diagnosis Plan: Acute recurrent maxillary sinusi tis Discussion: Rocephin 1 gram administered in clinic- patient tolerated well. Continue with supportive treatment at home as well. Tylenol for headache. Salt water gargles and sinus rinses advised. Patient states understanding. ICD-9 : 461.0 ICD-10 : J01.01 10/08/2018 Appointment: Lulu Navarro [address] [place] [address] US INJECTION 10/08/2018 Visit Diagnosis Plan: Acute recurrent maxillary sinusi tis Discussion: Rocephin- 1 gram administered in clinic. Patient tolerated well. Sinus rinses encouraged. Rest and fluids. Tylenol or Motrin for pain and fever. FU PRN. Patient states understanding. ICD-9 : 461.0 ICD-10 : J01.01 10/07/2018 Appointment: Lulu Navarro [address] [place] [address] ACUTE ILLNESS 10/07/2018 Visit Diagnosis Plan: Dizziness [...] ICD-10 : R42 09/25/2018 Appointment: Lulu Navarro [address] [place] [address] ACUTE ILLNESS 09/25/2018 Appointment: Kristine Brambila WPtel: [address] [place] [address] UA 09/10/2018 Visit Diagnosis Plan: Furuncle right [...] : A49.1 09/08/2018 Appointment: Kristine Brambila WPtel: [address] [place] [address] ACUTE ILLNESS 09/08/2018 Patient Education: cefdinir- OptimizeRX Coupon [id number] https://www.[employer]/samplemd/resources/getResource/61/[email or web address]-y9 Completed 09/08/2018 Appointment: [facility] [facility] 08/14/2018 Visit Diagnosis Plan: Otalgia, left [...] ICD-10 : J01.90 07/23/2018 Appointment: Ivon Sky [address] [place] [address] ACUTE ILLNESS 07/23/2018 Patient Education: cyclobenzaprine- Opti mizeRX Coupon [id number] https://www.[facility]/samplemd/resources/getResource/61/[email or web address].pdf Completed 07/23/2018 Visit Diagnosis Plan: Streptococcal infe ction, unspecified site Discussion: Randy Dove Sees dentist today t o assess tooth ICD-9 : 041.00 ICD-10 : A49.1 07/08/2018 Appointment: Kristine Brambila WPtel[facility] [address] [facility] [facility] 07/08/2018 Patient Education: penicillin V potassiu m- OptimizeRX Coupon [id number] https://www.[facility]/samplemd/resources/getResource/61/[email or web address] fa-[email or web address].pdf Completed 07/08/2018 Visit Diagnosis Plan: Localized enlarged [...] : K04.6 07/02/2018 Appointment: Ivon Sky [address] ACUTE ILLNESS 07/02/2018 Appointment: Kristine Brambila WPtel: [address] [place] [address] LAB 06/22/2018 Appointment: Kristine Brambila WPtel: [address] [place] [address] UA 06/17/2018 Visit Diagnosis Plan: Acute sinusitis, unspecified Discussion: dc keflex. start cefdinir daily for 10 days. saline up nares prn congestion. if no improvement after antibiotics or worsening symtpoms, call clinic. 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 [address] [place] [address] FOLLOW UP 05/11/2018 Appointment: Kristine Brambila WPtel: [address] [place] [address] LAB 04/30/2018 Visit Diagnosis Plan: Acute sinusitis, unspecified Discussion: 40 mg kenalog given to patient in office. clindamycin prescribed for patient to take as directed. instructed to stop nasal sprays due to worsening pain/irritation and only use saline rinse up nares for now. call with any new or worsening symptoms. ICD-9 : 461.9 ICD-10 : J01.90 04/02/2018 Appointment: Ivon Sky [address] [place] [address] ACUTE ILLNESS 04/02/2018 Patient Education: Patient Medication Summary Completed 04/02/2018 Appointment: Kristine Brambila WPtel: [address] [place] [address] LAB 03/24/2018 Patient Education: Patient Medication Summary [...] ICD-10 : G43.909 03/16/2018 Appointment: Ivon Sky [address] [place] [address] ACUTE ILLNESS 03/16/2018 Patient Education: Patient Medication Summary Completed 03/16/2018 Appointment: Kristine Brambila WPtel: [facility] US LAB 02/24/2018 Patient Education: Patient Medication Summary Completed 02/24/2018 Appointment: Kristine Brambila WPtel: [address] [place] [address] US RESCHEDULED 02/18/2018 Visit Diagnosis Plan: Abdominal distension (gaseous) Discussion: Wanda Restora Rx 1 daily Follow Up: 2 weeks ICD-9 : 787.3 ICD-10 : R14.0 02/16/2018 Visit Diagnosis Plan: Epigastric pain Discussion: Pepcid BID ICD-9 : 789.06 ICD-10 : R10.13 02/16/2018 Visit Diagnosis Plan: Diarrhea, unspecified Discussion: Wanda ICD-9 : 787.91 ICD-10 : R19.7 02/16/2018 Appointment: Kristine Brambila WPtel: [address] [place] [address] ACUTE ILLNESS 02/16/2018 Patient Education: Patient Medication Summary Completed 02/16/2018 Appointment: Kristine Brambila WPtel: [address] [place] [address] US INJECTION 02/05/2018 Patient Education: Patient Medication Summary Completed 02/05/2018 Appointment: Kristine Brambila WPtel: [address] [place] [address] US INJECTION 01/29/2018 Patient Education: Patient Medication Summary Completed 01/29/2018 Appointment: Kristine Brambila WPtel: [address] [place] [address] US INJECTION 01/28/2018 Patient Education: Patient Medication [...] : H66.001 01/26/2018 Appointment: Ivon Sky 504 [facility] ACUTE ILLNESS 01/26/2018 Patient Education: Patient Medication [...] ICD-10 : K13.79 01/01/2018 Appointment: Ivon Sky [address] [place] [address] ACUTE ILLNESS 01/01/2018 Patient Education: Patient Medication [...] ICD-10 : G43.909 12/25/2017 Appointment: Ivon Sky [address] [place], [place] [address] ACUTE ILLNESS 12/25/2017 Patient Education: Patient Medication Summary Completed 12/25/2017 Visit Diagnosis Plan: Acute pharyngitis, unspecified Discussion: rapid strep negative. rocephin injection given in office. clindamycin prescribed as well to start tomorrow for 10 days. increase fluid intake. call or rtc next week if new or worsening symptoms. ICD-9 : 462 ICD-10 : J02.9 12/11/2017 Appointment: Ivon Sky [address] [place] [address] ACUTE ILLNESS 12/11/2017 Patient Education: Patient Medication Summary Completed 12/11/2017 Appointment: Kristine Brambila WPtel: [address] [place], [place] [phone] [place] LAB 12/01/2017 Patient Education: Patient Medication Summary Completed 12/01/2017 Visit Diagnosis Plan: Encounter for gyne cological examination (general) (routine) without abnormal findings Discussion: Pap done as has a history of choriocarcinoma Had mammogram last month ICD-9 : V72.31 ICD-10 : Z01.419 11/05/2017 Appointment: Kristine Brambila WPtel: [address] [place] [address] Annual Well Visit 11/05/2017 Patient Education: Patient Medication Summary Completed 11/05/2017 Appointment: Kristine Brambila WPtel: [address] [place], [place] [phone] [place] LAB 10/14/2017 Patient Education: Patient Medication Summary Completed 10/14/2017 Care Plan: X-RAY EXAM OF SHOULDER right LOINC : 49285-0 Pending 10/07/2017 Visit Diagnosis Plan: Pain in right shoulder Discussion: xray ordered of right shoulder to rule out fracture. 40 mg kenalog given as one shot to assist with pain. 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 ICD-9 : V58.61 ICD-10 : Z79.01 10/06/2017 Appointment: Ivon Sky [address] [place] [address] ACUTE ILLNESS 10/06/2017 Patient Education: Patient Medication [...] : I73.00 10/01/2017 Appointment: Kristine Brambila WPtel: [address] [place] [address] ACUTE ILLNESS 10/01/2017 Patient Education: Patient Medication [...] : T23.262A 09/10/2017 Appointment: Ivon Sky [address] [place] [address] ACUTE ILLNESS 09/10/2017 Patient Education: Patient Medication Summary Completed 09/10/2017 Appointment: Kristine Brambila WPtel: [address] [place] [address] US INJECTION 09/05/2017 Patient Education: Patient Medication Summary Completed 09/05/2017 Appointment: Kristine Brambila WPtel: [address] [place], [place] [phone] [place] LAB 09/04/2017 Patient Education: Patient Medication Summary Completed 09/04/2017 Appointment: Kristine Brambila WPtel: [address] [place] [address] US LAB 08/07/2017 Patient Education: Patient Medication Summary Completed 08/07/2017 Patient Education: Patient Medication Summary Completed 07/21/2017 Care Plan: CHEST X-RAY 2VW FRONTAL&LATL LOINC : 38535-7 Pending 07/21/2017 Visit Diagnosis Plan: Acute upper [...] : K21.9 07/15/2017 Appointment: Ivon Sky 504 [facility] ACUTE ILLNESS 07/15/2017 Patient Education: Patient Medication Summary Completed 07/15/2017 Appointment: Kristine Brambila WPtel: [address] [place], [place] [phone] [place] INJECTION 07/04/2017 Patient Education: Patient Medication Summary Completed 07/04/2017 Appointment: Kristine Brambila WPtel: [address] [place], [place] [phone] [place] INJECTION 07/02/2017 Patient Education: Patient Medication [...] : H66.92 07/01/2017 Appointment: Ivon Sky 504 [facility] ACUTE ILLNESS 07/01/2017 Patient Education: Patient Medication Summary Completed 07/01/2017 Care Plan: US EXAM OF HEAD AND NECK Pending 07/01/2017 Appointment: Kristine Brambila WPtel: [phone] [facility] [facility] 06/19/2017 Patient Education: Patient Medication [...] : J18.9 05/27/2017 Appointment: Ivon Sky 504 [facility]66[facility] ACUTE ILLNESS 05/27/2017 Patient Education: Patient [...] : G47.00 05/20/2017 Appointment: Ivon Sky 504 [facility] ACUTE ILLNESS 05/20/2017 Patient Education: Patient Medication Summary Completed 05/20/2017 Visit Diagnosis Plan: Headache Discu ssion: Discussed likely Migraine Discussed MRI results Discussed changing acetazolamide to HCTZ ICD-9 : 784.0 ICD-10 : R51 04/22/2017 Visit Diagnosis Plan: Diplopia Discu ssion: Updated dilated eye exam ICD-9 : 368.2 ICD-10 : H53.2 04/22/2017 Appointment: Kristine Brambila WPtel: [phone] [facility] FOLLOW UP 04/22/2017 Patient Education: Patient Medication Summary Completed 04/22/2017 Appointment: Kristine Brambila WPtel: [address] [place] [address] RESCHEDULED 04/07/2017 Visit Plan: Saline nasal flushes pr n. Tylenol/Motrin prn headache. Notify if persists/symptoms worsening. 04/01/2017 Visit Plan: Saline nasal flushes pr n. Tylenol/Motrin prn headache. Notify if persists/symptoms worsening. 04/01/2017 Visit NOS Plan: Plan Notes: Saline nasal flushes prn. Tyle... 04/01/2017 Visit Diagnosis Plan: Acute sinusitis, unspecified Discussion: Kenalog 40mg IM x1 Decadron/Garamycin Nose Hartshorne Mix Has appointment on April 28 with ENT ICD-9 : 461.9 ICD-10 : J01.90 04/01/2017 Appointment: Kristine Brambila WPtel: [address] [place] [address] ACUTE ILLNESS 04/01/2017 Patient Education: Patient Medication Summary Completed 04/01/2017 Referral: Serjio Lugo WPtel: [address] [place] [address] Referral Appointment Requested 03/20/2017 Patient Education: Patient Medication Summary Completed 02/27/2017 Care Plan: CT ABDOMEN W/O DYE abd/pe lvis stone search LOINC : 04561-6 Pending 02/27/2017 Patient Education: Patient Medication Summary Completed 02/12/2017 Care Plan: MRI NECK SPINE W/O DYE LOINC : 79599-4 Pending 02/12/2017 Appointment: Kristine Brambila WPtel: [address] [place] [address] LAB 02/10/2017 Patient Education: Patient Medication Summary [...] : M54.2 02/05/2017 Appointment: Kristine Brambila WPtel: [address] [place], [place] [phone] ACUTE ILLNESS 02/05/2017 Patient Education: Patient Medication Summary Completed 02/05/2017 Care Plan: Referral Order SNOMED-CT : [id number] Pending 02/05/2017 Appointment: Kristine Brambila WPtel: [address] [place], [place] [phone] THROAT SWAB 02/03/2017 Patient Education: Patient Medication Summary Completed 02/03/2017 Appointment: Kristine Brambila WPtel: [address] [place], [place] [address] 01/13 canceled~sl CANCELED 01/28/2017 Visit Plan: Supportive [...] : J02.8 01/13/2017 Appointment: Kristine Brambila WPtel: [facility] ACUTE ILLNESS 01/13/2017 Patient Education: Patient Medication Summary Completed 01/13/2017 Appointment: Kristine Brambila WPtel: [facility] LAB 12/18/2016 Patient Education: Patient Medication Summary Completed 12/18/2016 Visit Diagnosis Plan: Pain in unspecified joint Discussion: Will retry methotrexate since has worked in past to greatly reduce patient's pain--4 tabs week one then 5 tabs week 2 then 6 tabs weekly and fwup in 6 weeks ICD-9 : 719.49 ICD-10 : M25.50 11/27/2016 Appointment: Kristine Brambila WPtel: [address] [place], [place] [phone] 6/6 lm~sl / confimed~sl MEDICATION REVIEW 11/27/2016 Patient Education: Patient Medication Summary Completed 11/27/2016 Visit Plan: Supportive care. Rest, Fluids, Tylenol/Motrin prn fever or bodyaches. Notify if worsening symptoms. 08/27/2016 Visit Plan: Supportive care. Rest, Fluids, Tylenol/Motrin prn fever or bodyaches. Notify if worsening symptoms. 08/27/2016 Visit NOS Plan: Plan Notes: Support gauri care. Rest, Fluids... 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 Discussion: PT/INR drawn ICD-9 : V58.61 ICD-10 : Z79.01 08/27/2016 Visit Diagnosis Plan: Dysuria Discus steven: Culture urine ICD-9 : 788.1 ICD-10 : R30.0 08/27/2016 Visit Diagnosis Plan: URI, ACUTE Dis cussion: Supportive care ICD-9 : 465.9 ICD-10 : J06.9 08/27/2016 Appointment: Kristine Brambila WPtel: [address] [place], [place] [address] 3/ confirmed`sl MEDICATION REVIEW 08/27/2016 Patient Education: Patient Medication Summary Completed 08/27/2016 Appointment: Kristine Brambila WPtel: [address] [place], [place] [phone] BP CHECK 07/08/2016 Patient Education: Patient Medication Summary Completed 07/08/2016 Appointment: Kristine Brambila WPtel: [address] [place], [place] [phone] LAB 05/24/2016 Patient Education: Patient Medication Summary Completed 05/24/2016 Appointment: Kristine Brambila WPtel: [address] [place], [place] [phone] 04/24 will not be able to get [...] with culture results 04/23/2016 Appointment: Nayeli Anderson [address] [place], [place] [id number] ACUTE ILLNESS 04/23/2016 Patient Education: Patient Medication [...] add oral abx 04/17/2016 Appointment: Nayeli Anderson [address] [place], [place] [phone] ACUTE ILLNESS 04/17/2016 Patient Education: Patient Medication Summary Completed 04/17/2016 Patient Education: [facility] NAMED [facility] - Saving AutoInj - 18-64 - Dynamic Portal ID Completed 04/17/2016 Appointment: Kristine Brambila WPtel: [address] [place], [place] [phone] [place] LAB 04/11/2016 Patient Education: Patient Medication [...] for migraines 03/12/2016 Appointment: Kristine Brambila WPtel: [address] [place], [place] [phone] 03/12 confirmed-sp FOLLOW UP 03/12/2016 Patient Education: Patient Medication Summary Completed 03/12/2016 Appointment: Kristine Brambila WPtel: [address] [place], [place] [phone] LAB 02/12/2016 Patient Education: Patient Medication Summary Completed 02/12/2016 Appointment: Kristine Brambila WPtel: [address] [place], [place] [phone] LAB 02/01/2016 Patient Education: Patient Medication Summary Completed 02/01/2016 Appointment: Kristine Brambila WPtel: [address] [place], [place] [phone] LAB 01/22/2016 Patient Education: Patient [...] improvement 11/10/2015 Appointment: Julee Slater WPtel: [phone] ACUTE ILLNESS 11/10/2015 Patient Education: Patient Medication [...] care otherwise 11/09/2015 Appointment: Nayeli Anderson [address] ACUTE ILLNESS 11/09/2015 Patient Education: Patient Medication Summary Completed 11/09/2015 Referral: Maximiliano Neves WPtel: [address] Spoke with Sally at Dr. Ta's offic e. Patient is scheduled for 10/16/15 at 3:15pm. Demographics and notes have been faxed. Patient has been informed. -sp Initi ated 10/16/2015 Visit Plan: Proceed with biopsy/rem oval of right posterior neck node Mammogram ordered--US of right axilla if needed 10/10/2015 Appointment: Kristine Brambila WPtel: [phone] 10/08 confirmed ~sl FOLLOW UP 10/10/2015 Patient Education: Patient Medication Summary Completed 10/10/2015 Patient Education: [facility] NAMED [facility] - Saving AutoInj - 18-64 - Dynamic Portal ID Completed 10/10/2015 Care Plan: MAMMOGRAM SCREENING LOINC : 86196-4 Pending 10/10/2015 Visit Plan: Labs ordered - [...] week for terminal carman management of pain 10/02/2015 Visit Plan: Labs [...] week for terminal carman management of pain 10/02/2015 Appointment: Nayeli Anderson [address] [place] [address] ACUTE ILLNESS 10/02/2015 Patient Education: Patient Medication Summary Completed 10/02/2015 Patient Education: [facility] NAMED [facility] - Saving AutoInj - 18-64 - Dynamic Portal ID Completed 10/02/2015 Care Plan: US EXAM OF HEAD AND NECK Pending 10/02/2015 Appointment: Kristine Brambila WPtel: [address] [place], [place] [phone] [place] LAB 09/29/2015 Patient Education: Patient Medication Summary Completed 09/29/2015 Appointment: Kristine Brambila WPtel: [address] [place], [place] [phone] [place] LAB 07/27/2015 Patient Education: Patient Medication Summary Completed 07/27/2015 Visit Plan: Trial of Savella Did no t tolerate lyrica Did not tolerate cymbalta 07/10/2015 Appointment: Kristine Brambila WPtel: [address] [place], [place] [phone] 07/10 appt confirmed cn FOLLOW UP 07/10/2015 Patient Education: Patient Medication Summary Completed 07/10/2015 Appointment: Krist[facility]ambila [facility]el[facility] [facility] [facility] 06/30/2015 Patient Education: Patient Medication Summary Completed 06/30/2015 Visit Plan: Recommended Vitamin E o il topically bid to area of scar. Currently taking Amoxicillin for sinusitis. Recommend Flonase nasal spray 06/27/2015 Visit Plan: Recommended Vitamin E o il topically bid to area of scar. Currently taking Amoxicillin for sinusitis. Recommend Flonase nasal spray 06/27/2015 Appointment: [phone] [facility] 06/27/2015 Patient Education: Patient Medication Summary Completed 06/27/2015 Appointment: Meli Hatch [facility]Ptel[phone] [facility] 06/22/15 appt confirmed and she will dreacharisma garcia new insurance card ACUTE ILLNESS 06/26/2015 Appointment: Kristine Brambila WPtel: [phone] [facility] [facility] 06/21/2015 Patient Education: Patient Medication Summary Completed 06/21/2015 Visit Plan: Add cymbalta at 30mg da loli Repeat PT/INR in 2weeks Recheck 1mo Awaiting ID to reschedule 06/08/2015 Visit Plan: Add cymbalta at 30mg da loli Repeat PT/INR in 2weeks Recheck 1mo Awaiting ID to reschedule 06/08/2015 Appointment: Kristine Brambila [facility]Ptel[phone] [facility] 06/07 lm ~sl 06/08 confirmed ~sl FOLLOW UP 06/08/2015 Patient Education: Patient Medication Summary Completed 06/08/2015 Patient Education: [facility] - Saving AutoInj - Cymbalta - 18-64 - Dynamic Portal ID Completed 06/08/2015 Patient Education: [facility] - Saving AutoInj - 18-64 - Dynamic Portal ID Completed 06/08/2015 Appointment: Kristine Brambilal: 2303 [facility] UA 05/31/2015 Patient Education: Patient Medication Summary Completed 05/31/2015 Visit Plan: Check PT/INR today Stop ped Lyrica due to fluid retention Has appt. scheduled at [facility] with hematology and infectious disease 06/08 Follow-up appt. in 2 weeks following appt. at . 05/24/2015 Visit Plan: Check PT/INR today Stop ped Lyrica due to fluid retention Has appt. scheduled at [facility] with hematology and infectious disease 06/08 Follow-up appt. in 2 weeks following appt. at . 05/24/2015 Appointment: Meli Hatch WPtel: [phone] [facility] NEW PATIENT 05/24/2015 Patient Education: Patient Medication Summary Completed 05/24/2015 Patient Education: [facility] NAMED [facility] - Saving AutoInj - 18-64 - Dynamic Portal ID Completed 05/24/2015 Referral: Annamarie Melo WPtel: [facility] [address] Referral Initiated Instructions Comment . Rapid strep negati ve Culture pending Rx as above New toothbrush in 24 hours Supportive care otherwise . Supportive care. Rest, Fluids, Tylenol/Motrin prn fever or bodyaches. Notify if worsening symptoms. . Rapid strep negati ve Culture pending [...] fluid retention Has appt. scheduled at [facility] with hematology and infectious disease 06/08 Follow-up appt. in 2 weeks following appt. at . . Check PT/INR today Stopped Lyrica due to fluid retention Has appt. scheduled at [facility] with hematology and infectious disease 06/08 [...] for terminal carman management of pain . Recommended Vitami n [...]
--- OUTSIDE RECORDS SUMMARY | 2020-01-28 14:14 | XMS REPORT | CCD ---
Author Author Heydi Hatch APRN Organization [facility] Address [address] [place] [address] Phone Care Team Providers Care Melting Operator Name Role Phone Kristine Brambila D.O., PP Unavailable CCM Unavailable Summary Purpose Interface Exchange Insurance Providers Payer name Policy type / Coverage type Covered democrat ID Effective Begin Date Effective End Date Blue Cross Blue Shield Blue Cross/Bl ue Shield [id number] 2018 Un known Family History Family History data not found Social History Social History Element Codes Description Effective Dates Tobacco history SNOMED CT: 85440424 Current every day smoker 06/08/2015 Allergies, Adverse [...] ICD-9: 786.2 ICD-10: R05 Active 07/21/2017 Unknown prison (current) use of anticoagulants ICD-9: V58.61 ICD-10: [...] 02/10/2017 Unknown Pelvic and perineal pain ICD-9: [id number] ICD-10: R10.2 Active 02/10/2017 Unknown Cervicalgia ICD-9: [...] COUGH ICD-9: 786.2 ICD-10: R05 07/21/2017 Active prison (current) use of anticoagulants ICD-9: V58.61 ICD-10: [...] 02/10/2017 Active Pelvic and perineal pain ICD-9: [id number] ICD-10: R10.2 02/10/2017 Active Cervicalgia ICD-9: 723.1 [...] Date Stop Date Sta tus Fill Instructions hydrocodone 10 mg-ac etaminophen 325 mg tablet RxNorm: 935994 1 Tablet(s) PO Q4-6H as needed for pain 02/01/2019 No Stop Date Active hydrocodone 10 mg-ac etaminophen 325 mg tablet RxNorm: 136423 1 Tablet(s) PO Q4-6H as needed for pain 02/01/2019 No Stop Date Active Diflucan 150 mg tablet RxNorm: 936446 Tablet(s) TABLET(S) 1 TABLET(S) PO QW NEEDED 01/28/2019 No Stop Date Active Vistaril 25 mg capsule RxNorm: 876665 1 Capsule(s) PO TID 01/27/2019 07/25/2019 Active ProAir HFA 90 mcg/ac tuation aerosol inhaler RxNorm: 200581 2 Puff(s) INH Q4H as needed 01/20/2019 No Stop Date Active Tessalon Perles 100 mg capsule RxNorm: 294869 1 Capsule(s) PO TID a s needed for cough 01/20/2019 No Stop Date Active doxycycline hyclate 100 mg capsule RxNorm: 8554604 1 Capsule(s) PO BID 01/20/2019 01/19/2019 In active doxycycline hyclate 100 mg capsule RxNorm: 3288267 1 Capsule(s) PO BID 01/20/2019 01/26/2019 In active Coumadin 5 mg tablet RxNorm: 221816 1 Tablet(s) PO QD (on Fri, , Fri, , Fri and Fri) 01/05/2019 06/09/2019 Active Generic For:COUMADIN 5MG TAB 05/25/2018 3:20:45 PM N O T I C E Last quantity doesn't match original quantity amoxicillin 500 mg c apsule RxNorm: 681261 1 Capsule(s) PO BID 01/05/2019 01/14/2019 Inactive amoxicillin 500 mg c apsule RxNorm: 588225 1 Capsule(s) PO BID 01/05/2019 01/04/2019 Inactive hydrocodone 10 mg-ac etaminophen 325 mg tablet RxNorm: 181312 1 Tablet(s) PO Q4-6H as needed for pain 01/01/2019 01/31/2019 Inactive cyclobenzaprine 10 m g tablet RxNorm: 644104 1 TABLET(S) PO QD NEEDED 12/23/2018 06/20/2019 Ac tive Coumadin 5 mg tablet RxNorm: 195154 Tablet(s) TAKE 1 TABLET(S) BY MOUTH FRI, FRI, FRI, Friday12/23/2018 01/04/2019 Inactive Generic For:COUMADIN 5MG TA B 05/25/2018 3:20:45 PM N O T I C E Last quantity doesn't match original quantity Diflucan 150 mg tablet RxNorm: 682260 Tablet(s) TABLET(S) 1 TABLET(S) PO QW NEEDED 12/23/2018 01/27/2019 Inactive Vitamin D2 50,000 un it capsule RxNorm: 1490494 1 Capsule(s) PO QW 12/04/2018 03/03/2019 Active Medrol (Juan Francisco) 4 mg ta blets in a dose pack RxNorm: 017628 Tablet(s) PO as direc liane 12/04/2018 12/03/2018 In active Vitamin D2 50,000 un it capsule RxNorm: 7123505 1 Capsule(s) PO QW 12/04/2018 12/03/2018 Inactive Medrol (Juan Francisco) 4 mg ta blets in a dose pack RxNorm: 082347 Tablet(s) PO as direc liane 12/04/2018 01/19/2019 In active Zithromax Z-Juan Francisco 250 mg tablet RxNorm: 244885 Tablet(s) PO take as directed 12/02/2018 No Stop Date Active Vistaril 25 mg capsule RxNorm: 088016 Capsule(s) 1 Capsule(s) PO TID as needed for anxiety 11/30/2018 02/27/2019 Active Coumadin 5 mg tablet RxNorm: 251853 Tablet(s) TAKE 1 TABLET(S) BY MOUTH MON, FRI, FRI, Friday11/30/2018 12/22/2018 Inactive Generic For:COUMADIN 5MG TA B 05/25/2018 3:20:45 PM N O T I C E Last quantity doesn't match original quantity Diflucan 150 mg tablet RxNorm: 387802 Tablet(s) TABLET(S) 1 TABLET(S) PO QW NEEDED 11/26/2018 12/22/2018 Inactive cholestyramine (with sugar) 4 gram oral powder RxNorm: 857521 1 UNIT DOSE PO QD 11/24/2018 02/21/2019 Ac tive acetazolamide 125 mg tablet RxNorm: 756546 1 Tablet(s) PO BID 11/24/2018 02/21/2019 Active cyclobenzaprine 10 m g tablet RxNorm: 787465 1 Tablet(s) PO QD as needed 11/17/2018 12/22/2018 In active hydrocodone 10 mg-ac etaminophen 325 mg tablet RxNorm: 631921 1 Tablet(s) PO Q4-6H as needed for pain 11/05/2018 01/31/2019 Inactive acetazolamide 125 mg tablet RxNorm: 555990 1 TABLET(S) PO BID 10/26/2018 11/23/2018 Inactive cholestyramine (with sugar) 4 gram oral powder RxNorm: 475289 1 UNIT DOSE PO QD 10/26/2018 11/23/2018 In active Coumadin 5 mg tablet RxNorm: 628793 TAKE 1 TABLET(S) BY MOUTH FRI, FRI, FRI, Friday10/26/2018 11/29/2018 Inactive Generic For:COUMADIN 5MG TAB 05/25/2018 3:20:45 PM N O T I C E Last quantity doesn't match original quantity Diflucan 150 mg tablet RxNorm: 417895 TABLET(S) 1 TABLET(S) PO QW NEEDED 10/26/2018 11/25/2018 In active hydrocodone 10 mg-ac etaminophen 325 mg tablet RxNorm: 225550 1 Tablet(s) PO Q4-6H as needed for pain 10/08/2018 11/04/2018 Inactive acetazolamide 125 mg tablet RxNorm: 536972 1 Tablet(s) PO BID 09/24/2018 10/23/2018 Inactive Coumadin 5 mg tablet RxNorm: 740510 TAKE 1 TABLET(S) BY MOUTH FRI, FRI, FRI, Friday09/24/2018 10/25/2018 Inactive Generic For:COUMADIN 5MG TAB 05/25/2018 3:20:45 PM N O T I C E Last quantity doesn't match original quantity Diflucan 150 mg tablet RxNorm: 934746 Tablet(s) 1 Tablet(s) PO QW as needed 09/24/2018 10/25/2018 In active cyclobenzaprine 10 m g tablet RxNorm: 999355 1 Tablet(s) PO QD as needed 09/24/2018 11/16/2018 In active Vistaril 25 mg capsule RxNorm: 182148 1 Capsule(s) PO TID as needed for anxiet y 09/24/2018 11/29/2018 In active cholestyramine (with sugar) 4 gram oral powder RxNorm: 182008 1 Unit Dose PO QD 09/24/2018 10/23/2018 In active Pyridium 200 mg tablet RxNorm: 0646373 1 Tablet(s) PO TID 09/10/2018 09/19/2018 Inactive Pyridium 200 mg tablet RxNorm: 3976943 1 Tablet(s) PO TID 09/10/2018 09/09/2018 Inactive hydrocodone 10 mg-ac etaminophen 325 mg tablet RxNorm: 915428 1 Tablet(s) PO Q4-6H as needed for pain 09/08/2018 10/07/2018 Inactive cefdinir 300 mg capsule RxNorm: 419793 1 Capsule(s) PO BID 09/08/2018 09/21/2018 Inactive hydrocodone 10 mg-ac etaminophen 325 mg tablet RxNorm: 101608 1 Tablet(s) PO Q4-6H as needed for pain 08/13/2018 09/07/2018 Inactive cyclobenzaprine 10 m g tablet RxNorm: 611152 1 Tablet(s) PO QD as needed 07/23/2018 09/23/2018 In active Diflucan 150 mg tablet RxNorm: 552563 Tablet(s) 1 Tablet(s) PO QW as needed 07/23/2018 09/23/2018 In active Ciprodex 0.3 %-0.1 % ear drops,suspension RxNorm: 075462 4 Drop(s) left otic ( ear) BID 07/23/2018 07/29/2018 Inactive hydrocodone 10 mg-ac etaminophen 325 mg tablet RxNorm: 062069 1 Tablet(s) PO Q4-6H as needed for pain 07/16/2018 08/12/2018 Inactive penicillin V potassi um 500 mg tablet RxNorm: 367496 1 Tablet(s) PO Q6H 07/08/2018 07/17/2018 In active cyclobenzaprine 10 m g tablet RxNorm: 857140 1 Tablet(s) PO QD as needed 06/22/2018 07/22/2018 In active Vistaril 25 mg capsule RxNorm: 847086 1 Capsule(s) PO TID as needed for anxiet y 06/22/2018 09/23/2018 In active cholestyramine (with sugar) 4 gram oral powder RxNorm: 868007 1 Unit Dose PO QD 06/22/2018 09/23/2018 In active hydrocodone 10 mg-ac etaminophen 325 mg tablet RxNorm: 884875 1 Tablet(s) PO Q4-6H as needed for pain 06/17/2018 07/15/2018 Inactive cefdinir 300 mg capsule RxNorm: 972510 1 Capsule(s) PO BID 06/02/2018 06/11/2018 Inactive Diflucan 150 mg tablet RxNorm: 370158 Tablet(s) 1 Tablet(s) PO QW as needed 06/02/2018 07/22/2018 In active Coumadin 5 mg tablet RxNorm: 623167 TAKE 1 TABLET(S) BY MOUTH FRI, FRI, FRI, Friday05/25/2018 07/15/2018 Inactive Generic For:COUMADIN 5MG TAB 05/25/2018 3:20:45 PM N O T I C E Last quantity doesn't match original quantity Imitrex 50 mg tablet RxNorm: 344096 Tablet(s) 1 Tablet(s) PO at headache. re peat in 2 hours if no relief. no more than 2 tabs per day 05/19/2018 No Stop Date Active cholestyramine (with sugar) 4 gram oral powder RxNorm: 655029 1 Unit Dose PO QD 05/19/2018 11/14/2018 In active Vistaril 25 mg capsule RxNorm: 039801 1 Capsule(s) PO TID 05/19/2018 11/14/2018 Inactive Coumadin 5 mg tablet RxNorm: 118009 Tablet(s) TAKE 1 TABLET(S) BY MOUTH FRI, FRI, FRI, Friday05/19/2018 05/24/2018 Inactive Generic For:COUMADIN 5MG TA B N O T I C E Last quantity doesn't match original quantity acetazolamide 125 mg tablet RxNorm: 326530 1 Tablet(s) PO BID 05/19/2018 09/23/2018 Inactive cyclobenzaprine 10 m g tablet RxNorm: 359793 1 Tablet(s) PO QD as needed 05/19/2018 11/17/2018 In active Coumadin 7.5 mg tablet RxNorm: 459870 1 Tablet(s) PO QD , Th, 05/19/2018 01/04/2019 In active ketorolac 10 mg tablet RxNorm: 269453 1 Tablet(s) PO QHS as needed 05/11/2018 No Stop Date Active promethazine 12.5 mg tablet RxNorm: 928290 1 Tablet(s) PO Q6H as needed 04/23/2018 04/22/2018 In active acetazolamide 125 mg tablet RxNorm: 794589 1 Tablet(s) PO BID 04/23/2018 05/18/2018 Inactive Coumadin 5 mg tablet RxNorm: 917929 TAKE 1 TABLET(S) BY MOUTH FRI, FRI, FRI, Friday04/23/2018 05/18/2018 Inactive Generic For:COUMADIN 5MG TAB N O T I C E Last quantity doesn't match original quantity Imitrex 50 mg tablet RxNorm: 699179 1 Tablet(s) PO at headache. repeat in 2 hours if no relief. no more than 2 tabs per day 04/23/2018 05/18/2018 Inactive cyclobenzaprine 10 m g tablet RxNorm: 162929 1 Tablet(s) PO QD as needed 04/23/2018 05/18/2018 In active clindamycin HCl 300 mg capsule RxNorm: 571055 1 Capsule(s) PO TID 04/02/2018 04/11/2018 Inactive hydrocodone 10 mg-ac etaminophen 325 mg tablet RxNorm: 569378 1 Tablet(s) PO Q4-6H as needed for pain 03/24/2018 06/16/2018 Inactive promethazine 12.5 mg tablet RxNorm: 207834 1 Tablet(s) PO Q6H 03/23/2018 04/23/2018 Inactive Imitrex 50 mg tablet RxNorm: 046485 1 Tablet(s) PO at headache. repeat in 2 hours if no relief. no more than 2 tabs per day 03/23/2018 04/22/2018 Inactive Diflucan 150 mg tablet RxNorm: 527406 1 Tablet(s) PO QW as needed 03/23/2018 06/01/2018 Inactive Coumadin 5 mg tablet RxNorm: 450217 Tablet(s) 1 Tablet(s) PO Mon, Wed, Fri, Sun 03/23/2018 04/22/2018 In active Imitrex 100 mg tablet RxNorm: 843938 Tablet(s) PO take one tablet at sign of headache and repeat in 2 hours if ineffective 03/16/2018 04/01/2018 Inactive ondansetron HCl 4 mg tablet RxNorm: 076443 1 Tablet(s) PO Q4H as needed for nausea 02/24/2018 04/01/2018 In active hydrocodone 10 mg-ac etaminophen 325 mg tablet RxNorm: 008166 1 Tablet(s) PO Q4-6H as needed for pain 02/24/2018 03/23/2018 Inactive Coumadin 5 mg tablet RxNorm: 764575 Tablet(s) 1 Tablet(s) PO Mon, Fri, Fri, Sun 02/20/2018 03/22/2018 In active promethazine 12.5 mg tablet RxNorm: 556572 1 Tablet(s) PO Q6H 02/20/2018 03/22/2018 Inactive Pepcid 40 mg tablet RxNorm: 548028 1 Tablet(s) PO BID for stomach 02/16/2018 03/17/2018 In active Flagyl 500 mg tablet RxNorm: 469271 1 Tablet(s) PO TID 02/16/2018 02/25/2018 Inactive Imitrex 50 mg tablet RxNorm: 195134 1 Tablet(s) PO at headache. repeat in 2 hours if no relief. no more than 2 tabs per day 01/27/2018 03/15/2018 Inactive Coumadin 5 mg tablet RxNorm: 566349 1 Tablet(s) PO Mon, Fri, Fri, Sun 01/27/2018 02/20/2018 In active amoxicillin 875 mg t ablet RxNorm: 898960 1 Tablet(s) PO BID 01/26/2018 02/04/2018 Inactive Imitrex 50 mg tablet RxNorm: 793566 1 Tablet(s) PO at headache. repeat in 2 hours if no relief. no more than 2 tabs per day 01/26/2018 03/22/2018 Inactive cyclobenzaprine 10 m g tablet RxNorm: 529113 1 Tablet(s) PO QD as needed 01/23/2018 03/23/2018 In active promethazine 12.5 mg tablet RxNorm: 666667 1 Tablet(s) PO Q6H 01/23/2018 02/19/2018 Inactive Diflucan 150 mg tablet RxNorm: 318497 1 Tablet(s) PO QW as needed 01/22/2018 03/22/2018 Inactive acetazolamide 125 mg tablet RxNorm: 469203 1 Tablet(s) PO BID 01/22/2018 04/21/2018 Inactive Imitrex 50 mg tablet RxNorm: 234587 1 Tablet(s) PO at headache. repeat in 2 hours if no relief. no more than 2 tabs per day 01/02/2018 01/25/2018 Inactive Ciprodex 0.3 %-0.1 % ear drops,suspension RxNorm: 931905 4 Drop(s) otic (ear) BID 01/01/2018 01/07/2018 In active Coumadin 7.5 mg tablet RxNorm: 660930 1 Tablet(s) PO QD , Th, 12/29/2017 05/18/2018 In active Coumadin 5 mg tablet RxNorm: 944634 1 Tablet(s) PO Mon, Wed, Fri, Sun 12/29/2017 01/26/2018 In active cyclobenzaprine 10 m g tablet RxNorm: 327578 1 Tablet(s) PO QD as needed 12/29/2017 01/22/2018 In active clindamycin HCl 300 mg capsule RxNorm: 694267 1 Capsule(s) PO TID 12/26/2017 12/25/2017 Inactive Imitrex 50 mg tablet RxNorm: 064873 1 Tablet(s) PO at headache. repeat in 2 hours if no relief. no more than 2 tabs per day 12/26/2017 01/01/2018 Inactive clindamycin HCl 300 mg capsule RxNorm: 448473 1 Capsule(s) PO TID 12/26/2017 01/04/2018 Inactive Zithromax Z-Juan Francisco 250 mg tablet RxNorm: 975871 Tablet(s) PO take as directed 12/25/2017 12/25/2017 In active promethazine 12.5 mg tablet RxNorm: 221655 1 Tablet(s) PO Q6H 12/25/2017 01/22/2018 Inactive clindamycin HCl 300 mg capsule RxNorm: 661388 1 Capsule(s) PO TID 12/11/2017 12/17/2017 Inactive Vistaril 25 mg capsule RxNorm: 076442 1 Capsule(s) PO TID as needed for anxiet y 12/04/2017 05/18/2018 In active cholestyramine (with sugar) 4 gram oral powder RxNorm: 163599 1 Unit Dose PO QD 12/04/2017 05/18/2018 In active Coumadin 7.5 mg tablet RxNorm: 763878 1 Tablet(s) PO QD 12/04/2017 12/28/2017 Inactive Coumadin 5 mg tablet RxNorm: 415886 1 Tablet(s) PO Friday through Friday12/04/2017 12/28/2017 In active hydrocodone 10 mg-ac etaminophen 325 mg tablet RxNorm: 683403 1 Tablet(s) PO Q4-6H as needed for pain 12/01/2017 02/23/2018 Inactive hydrocodone 10 mg-ac etaminophen 325 mg tablet RxNorm: 941203 1 Tablet(s) PO Q4-6H as needed for pain 11/03/2017 11/30/2017 Inactive cyclobenzaprine 10 m g tablet RxNorm: 116589 1 Tablet(s) PO QD as needed 10/30/2017 12/28/2017 In active cholestyramine (with sugar) 4 gram oral powder RxNorm: 091386 1 Unit Dose PO QD 10/30/2017 11/28/2017 In active amoxicillin 875 mg t ablet RxNorm: 701894 1 Tablet(s) PO BID 10/08/2017 10/07/2017 Inactive amoxicillin 875 mg t ablet RxNorm: 090245 1 Tablet(s) PO BID 10/08/2017 10/17/2017 Inactive penicillin V potassi um 500 mg tablet RxNorm: 678955 1 Tablet(s) PO BID 10/06/2017 10/07/2017 In active hydrocodone 10 mg-ac etaminophen 325 mg tablet RxNorm: 199176 1 Tablet(s) PO Q4-6H as needed for pain 10/06/2017 11/02/2017 Inactive hydrocodone 10 mg-ac etaminophen 325 mg tablet RxNorm: 116583 1 Tablet(s) PO Q4-6H as needed for pain 10/06/2017 12/31/2018 Inactive Vigamox 0.5 % eye drops RxNorm: 635591 1 Drop(s) ophthalmic (eye) TID ONLY ADMI NISTER IF INFECTION 10/03/2017 10/02/2017 Inactive Vigamox 0.5 % eye drops RxNorm: 399233 1 Drop(s) ophthalmic (eye) TID ONLY ADMI NISTER IF INFECTION 10/03/2017 10/09/2017 Inactive cholestyramine (with sugar) 4 gram oral powder RxNorm: 791531 1 Unit Dose PO QD 09/23/2017 10/30/2017 In active acetazolamide 125 mg tablet RxNorm: 555671 1 Tablet(s) PO BID 09/23/2017 12/21/2017 Inactive Coumadin 5 mg tablet RxNorm: 487219 1 Tablet(s) PO QD FRIDAY THROUGH Friday09/17/2017 11/04/2017 In active mupirocin 2 % topica l ointment RxNorm: 384641 1 Application TOP TID 09/10/2017 11/04/2017 Inactive hydrocodone 10 mg-ac etaminophen 325 mg tablet RxNorm: 694471 1 Tablet(s) PO Q4-6H as needed for pain 09/08/2017 10/05/2017 Inactive Questran 4 gram powd er for susp in a packet RxNorm: 320043 MIX ONE PACKET IN 6 O UNCES OF APPLE SAUCE OR OTHER SOFT FOOD AND EAT ONCE DAILY 09/02/2017 11/04/2017 Inactive Diflucan 150 mg tablet RxNorm: 465240 1 Tablet(s) PO QW as needed 08/14/2017 01/21/2018 Inactive hydrocodone 10 mg-ac etaminophen 325 mg tablet RxNorm: 373505 1 Tablet(s) PO Q4-6H as needed for pain 08/11/2017 09/07/2017 Inactive Tamiflu 75 mg capsule RxNorm: 298260 1 Capsule(s) PO QD 08/11/2017 08/10/2017 Inactive Tamiflu 75 mg capsule RxNorm: 944271 1 Capsule(s) PO QD 08/11/2017 08/20/2017 Inactive Coumadin 5 mg tablet RxNorm: 855595 1 Tablet(s) PO QD FRIDAY THROUGH Friday07/22/2017 09/16/2017 In active Coumadin 5 mg tablet RxNorm: 116233 TAKE ONE TABLET BY MOUTH ONCE DAILY THROUGH Friday07/16/2017 07/21/2017 Inactive cyclobenzaprine 10 m g tablet RxNorm: 017219 1 Tablet(s) PO QD as needed 07/15/2017 10/30/2017 In active hydrocodone 10 mg-ac etaminophen 325 mg tablet RxNorm: 156392 1 Tablet(s) PO Q4-6H as needed for pain 07/14/2017 08/10/2017 Inactive warfarin 5 mg tablet RxNorm: 816928 1 Tablet(s) PO Fri Sat Jamee nt is due for PT/INR 06/18/2017 07/15/2017 Inactive Questran Light 4 gra m powder for susp in a packet RxNorm: 9502114 1 PO QD 06/18/2017 11/04/2017 In active cyclobenzaprine 10 m g tablet RxNorm: 986199 1 Tablet(s) PO QD as needed 06/18/2017 07/14/2017 In active hydrocodone 10 mg-ac etaminophen 325 mg tablet RxNorm: 647529 1 Tablet(s) PO Q4-6H as needed for pain 06/18/2017 07/13/2017 Inactive Lunesta 1 mg tablet RxNorm: 881180 1 Tablet(s) PO QHS as needed 05/27/2017 06/25/2017 Inactive Zithromax Z-Juan Francisco 250 mg tablet RxNorm: 415703 1 Tablet(s) PO Take a s directed 05/27/2017 11/04/2017 In active ProAir HFA 90 mcg/ac tuation aerosol inhaler RxNorm: 598348 2 Puff(s) INH Q4H 05/27/2017 01/19/2019 In active ProAir HFA 90 mcg/ac tuation aerosol inhaler RxNorm: 362987 2 Puff(s) INH Q4H 05/27/2017 05/26/2017 In active promethazine 6.25 mg -codeine 10 mg/5 mL syrup RxNorm: 102833 5 Milliliter(s) PO Q4 H as needed 05/27/2017 11/04/2017 Inactive Diflucan 150 mg tablet RxNorm: 741637 1 Tablet(s) PO QW as needed 05/26/2017 05/25/2017 Inactive cyclobenzaprine 10 m g tablet RxNorm: 424054 1 Tablet(s) PO QD as needed 05/20/2017 06/18/2017 In active Lunesta 2 mg tablet RxNorm: 546465 1 Tablet(s) PO QHS 05/20/2017 05/27/2017 Inactive Zithromax Z-Juan Francisco 250 mg tablet RxNorm: 271784 Tablet(s) PO As Direc liane 05/12/2017 05/19/2017 In active cyclobenzaprine 5 mg tablet RxNorm: 920953 1 Tablet(s) PO QPM 03/28/2017 05/19/2017 Inactive Vistaril 25 mg capsule RxNorm: 435360 1 Capsule(s) PO TID as needed for anxiet y 03/28/2017 09/23/2017 In active Questran 4 gram powd er for susp in a packet RxNorm: 957052 1 Unit(s) PO QD 03/06/2017 06/18/2017 In active Cipro 500 mg tablet RxNorm: 749985 1 Tablet(s) PO BID 02/27/2017 02/26/2017 Inactive Pyridium 200 mg tablet RxNorm: 2310353 1 Tablet(s) PO TID for bladder spasms 02/27/2017 03/31/2017 In active Cipro 500 mg tablet RxNorm: 443446 1 Tablet(s) PO BID 02/27/2017 03/05/2017 Inactive Levsin 0.125 mg tablet RxNorm: 4206004 1 Tablet(s) PO QID as needed for spasm 02/25/2017 11/04/2017 In active tamsulosin 0.4 mg ca psule RxNorm: 196661 1 Capsule(s) PO QPM 02/25/2017 03/26/2017 Inactive tamsulosin 0.4 mg ca psule RxNorm: 737362 1 Capsule(s) PO QPM 02/25/2017 02/24/2017 Inactive Pyridium 100 mg tablet RxNorm: 5880237 1 Tablet(s) PO TID as needed 02/21/2017 03/31/2017 In active acetazolamide 125 mg tablet RxNorm: 907286 1 Tablet(s) PO BID 02/07/2017 09/23/2017 Inactive Questran 4 gram powd er for susp in a packet RxNorm: 925779 1 Unit(s) PO QD 02/06/2017 03/06/2017 In active cyclobenzaprine 5 mg tablet RxNorm: 651401 1 Tablet(s) PO QPM 02/05/2017 03/27/2017 Inactive BuSpar 5 mg tablet RxNorm: 110275 1 Tablet(s) PO BID 02/03/2017 03/31/2017 Inactive Diflucan 150 mg tablet RxNorm: 321319 1 Tablet(s) PO QW as needed 01/15/2017 05/26/2017 Inactive Valtrex 1 gram tablet RxNorm: 565601 1 Tablet(s) PO TID 01/13/2017 01/19/2017 Inactive Vistaril 25 mg capsule RxNorm: 045847 1 Capsule(s) PO TID as needed for anxiet y 01/13/2017 03/27/2017 In active hydrocodone 10 mg-ac etaminophen 325 mg tablet RxNorm: 328479 1 Tablet(s) PO Q4-6H as needed for pain 01/13/2017 06/17/2017 Inactive Questran 4 gram powd er for susp in a packet RxNorm: 309623 1 Unit(s) PO QD 01/13/2017 09/23/2017 In active acetazolamide 125 mg tablet RxNorm: 560597 1 Tablet(s) PO BID 01/13/2017 02/06/2017 Inactive methotrexate (PF) 20 mg/0.4 mL subcutaneous auto-injector RxNorm: 0628306 Milliliter(s) SQ QW 12/26/2016 01/05/2017 Inactive Compazine 10 mg tablet RxNorm: 058535 1 Tablet(s) PO TID as needed for nausea 12/18/2016 11/04/2017 In active hydrocodone 10 mg-ac etaminophen 325 mg tablet RxNorm: 621591 1 Tablet(s) PO Q4-6H as needed for pain 12/17/2016 01/12/2017 Inactive Questran 4 gram powd er for susp in a packet RxNorm: 313285 1 Unit(s) PO QD 12/17/2016 01/13/2017 In active cyclobenzaprine 5 mg tablet RxNorm: 490176 1 Tablet(s) PO QPM 12/17/2016 02/05/2017 Inactive Questran Light 4 gra m powder for susp in a packet RxNorm: 6079778 1 PO QD 11/29/2016 06/17/2017 In active Zofran ODT 4 mg disi ntegrating tablet RxNorm: 003260 1 Tablet(s) PO Q4H as needed for nausea 11/29/2016 12/17/2016 Inactive methotrexate sodium 2.5 mg tablet RxNorm: 251929 4 Tablet(s) PO week 1 then 5 tablets po week 2 then 6 tablets weekly 11/27/2016 12/25/2016 Inactive warfarin 7.5 mg tablet RxNorm: 190148 1 Tablet(s) PO three times weekly 11/14/2016 03/31/2017 In active warfarin 7.5 mg tablet RxNorm: 725224 1 Tablet(s) PO three times weekly 11/13/2016 11/13/2016 In active Diflucan 150 mg tablet RxNorm: 356008 1 Tablet(s) PO QW as needed 11/05/2016 01/14/2017 Inactive Vistaril 25 mg capsule RxNorm: 851287 1 Capsule(s) PO TID as needed for anxiet y 11/04/2016 11/03/2016 In active Coumadin 5 mg tablet RxNorm: 447558 1 Tablet(s) PO Friday through Friday11/04/2016 06/18/2017 In active acetazolamide 125 mg tablet RxNorm: 281752 1 Tablet(s) PO BID 11/04/2016 01/13/2017 Inactive sumatriptan 100 mg t ablet RxNorm: 096999 1 Tablet(s) PO at hea dache onset. May repeat in 2 hours if headache remains 11/04/2016 11/04/2017 Inactive Vistaril 25 mg capsule RxNorm: 373600 1 Capsule(s) PO TID as needed for anxiet y 11/04/2016 01/12/2017 In active hydrocodone 10 mg-ac etaminophen 325 mg tablet RxNorm: 140568 1 Tablet(s) PO Q4-6H as needed for pain 11/04/2016 12/16/2016 Inactive Coumadin 5 mg tablet RxNorm: 494060 TAKE ONE TABLET BY MOUTH ON SUN., MON., WED., AND FRI., AND TAKE ONE AND ONE-HALF TABLETS TUE., TH., AND 10/16/2016 10/25/2016 In active Coumadin 5 mg tablet RxNorm: 676710 1 Tablet(s) PO Friday through Friday10/15/2016 11/03/2016 In active hydrocodone 10 mg-ac etaminophen 325 mg tablet RxNorm: 096028 1 Tablet(s) PO Q4-6H as needed for pain 10/14/2016 11/03/2016 Inactive hydrocodone 10 mg-ac etaminophen 325 mg tablet RxNorm: 344487 1 Tablet(s) PO Q4-6H as needed for pain 09/20/2016 10/13/2016 Inactive warfarin 7.5 mg tablet RxNorm: 283332 1 Tablet(s) PO three times weekly 09/20/2016 11/12/2016 In active Diflucan 150 mg tablet RxNorm: 112349 1 Tablet(s) PO QW as needed 08/20/2016 11/04/2016 Inactive acetazolamide 125 mg tablet RxNorm: 128548 1 Tablet(s) PO BID 08/20/2016 11/04/2016 Inactive Diflucan 150 mg tablet RxNorm: 288012 1 Tablet(s) PO QW as needed 08/20/2016 08/19/2016 Inactive Vistaril 25 mg capsule RxNorm: 381104 Capsule(s) TAKE ONE CAPSULE BY MOUTH THR EE TIMES DAILY NEEDED FOR ANXIETY 08/19/2016 11/04/2016 Inactive hydrocodone 10 mg-ac etaminophen 325 mg tablet RxNorm: 367067 1 Tablet(s) PO Q4-6H as needed for pain 08/05/2016 09/19/2016 Inactive Diflucan 150 mg tablet RxNorm: 239496 1 Tablet(s) PO QW as needed 07/19/2016 08/19/2016 Inactive tizanidine 4 mg tablet RxNorm: 379758 1-2 Tablet(s) PO QHS as needed for muscl e spasm and sleep 06/03/2016 06/10/2016 Inactive Questran Light 4 gra m powder for susp in a packet RxNorm: 3581061 1 PO QD 05/14/2016 08/11/2016 In active Macrobid 100 mg capsule RxNorm: 556724 1 Capsule(s) PO BID 04/23/2016 05/02/2016 Inactive mupirocin 2 % topica l ointment RxNorm: 217951 Apply topically to af fected area 2-3 times daily 04/17/2016 07/07/2016 Inactive Vistaril 25 mg capsule RxNorm: 345253 TAKE ONE CAPSULE BY MOUTH THREE TIMES DA LOLI NEEDED FOR ANXIETY 04/17/2016 11/04/2016 Inactive Diflucan 150 mg tablet RxNorm: 249097 1 Tablet(s) PO QW as needed 04/16/2016 07/18/2016 Inactive cyclobenzaprine 5 mg tablet RxNorm: 306946 TAKE ONE TABLET BY [facility]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 2025956 INR 1.5 08/07/2017 COMPREHENSIVE METABOLIC 29578 AST 21 U/L 08/07/2017 COMPREHENSIVE METABOLIC 52667 ALT 37 U/L 08/07/2017 COMPREHENSIVE METABOLIC 66726 BUN 14 mg/dL 08/07/2017 COMPREHENSIVE METABOLIC 00871 ALBUMIN 4.5 g/dL 08/07/2017 COMPREHENSIVE METABOLIC 72079 CHLORIDE 104 mmol/L 08/07/2017 COMPREHENSIVE METABOLIC 09097 Bili Total 0.3 mg/dL 08/07/2017 COMPREHENSIVE METABOLIC 38777 ALK PHOS 55 U/L 08/07/2017 COMPREHENSIVE METABOLIC 52269 SODIUM 139 mmol/L 08/07/2017 COMPREHENSIVE METABOLIC 52149 CREATININE 0.77 mg/dL 08/07/2017 COMPREHENSIVE METABOLIC 44033 CALCIUM 9.2 mg/dL 08/07/2017 COMPREHENSIVE METABOLIC 53671 POTASSIUM 3.7 mmol/L 08/07/2017 COMPREHENSIVE METABOLIC 68318 Total Protein 6.5 g/dL 08/07/2017 COMPREHENSIVE METABOLIC 78624 Glucose 101 mg/dL 08/07/2017 COMPREHENSIVE METABOLIC 00081 Bicarbonate 25 mmol/L 08/07/2017 COMPREHENSIVE METABOLIC 92742 AGAP 10 mmol/L 08/07/2017 COMPLETE BLOOD COUNT 9946047 WBC 9.4 10e9/L 08/07/2017 COMPLETE BLOOD COUNT 1171495 RBC 4.38 10e12/L 8 COMPLETE BLOOD COUNT 2465119 HEMOGLOBIN 14.5 g/dL 08/07/2017 COMPLETE BLOOD COUNT 3906922 HEMATOCRIT 42.7 % 08/07/2017 COMPLETE BLOOD COUNT 2611344 MCV 97.5 fL 08/07/2017 COMPLETE BLOOD COUNT 7790808 MCH 33.1 pg 08/07/2017 COMPLETE BLOOD COUNT 0897596 MCHC 34.0 g/dL 08/07/2017 COMPLETE BLOOD COUNT 9054313 PLATELET COUNT 313 10e9/L 08/07/2017 COMPLETE BLOOD COUNT 4898355 Mean Plt Volume 8.6 fL 08/07/2017 COMPLETE BLOOD COUNT 4343173 Neut Auto 51.6 % 08/07/2017 COMPLETE BLOOD COUNT 4751868 Lymph Auto 40.0 % 08/07/2017 COMPLETE BLOOD COUNT 2773131 Walker Auto 6.8 % 08/07/2017 COMPLETE BLOOD COUNT 6568894 RDW 12.9 % 08/07/2017 COMPLETE BLOOD COUNT 9360580 Eos Auto 1.4 % 08/07/2017 COMPLETE BLOOD COUNT 3081620 Baso Auto 0.2 % 08/07/2017 COMPLETE BLOOD COUNT 8777613 Neutrophil Abs 4.85 10e9/L 08/07/2017 COMPLETE BLOOD COUNT 9646797 Lymphocyte Abs 3.76 10e9/L 08/07/2017 COMPLETE BLOOD COUNT 3444308 Monocyte Abs 0.64 10e9/L 08/07/2017 COMPLETE BLOOD COUNT 8254213 Eosinophil Abs 0.13 10e9/L 08/07/2017 COMPLETE BLOOD COUNT 9295915 RDW-SD 45.1 fL 08/07/2017 COMPLETE BLOOD COUNT 5040888 Basophil Abs 0.02 10e9/L 08/07/2017 GFR CALC 9346171 GFR Non Afr Amr >60 mL/min 08/07/2017 GFR CALC 9171911 GFR Afr Amr >60 mL/min 08/07/2017 COMPLETE BLOOD COUNT 8847174 WBC 9.2 10e9/L 07/15/2017 COMPLETE BLOOD COUNT 4066865 RBC 4.70 10e12/L 8 COMPLETE BLOOD COUNT 5920149 HEMOGLOBIN 15.4 g/dL 07/15/2017 COMPLETE BLOOD COUNT 3061591 HEMATOCRIT 46.2 % 07/15/2017 COMPLETE BLOOD COUNT 7337093 MCV 98.3 fL 07/15/2017 COMPLETE BLOOD COUNT 9162552 MCH 32.8 pg 07/15/2017 COMPLETE BLOOD COUNT 2326740 MCHC 33.3 g/dL 07/15/2017 COMPLETE BLOOD COUNT 1542001 PLATELET COUNT 348 10e9/L 07/15/2017 COMPLETE BLOOD COUNT 9767229 Mean Plt Volume 8.9 fL 07/15/2017 COMPLETE BLOOD COUNT 5810348 Neut Auto 60.6 % 07/15/2017 COMPLETE BLOOD COUNT 3539342 Lymph Auto 30.9 % 07/15/2017 COMPLETE BLOOD COUNT 0492277 Walker Auto 7.1 % 07/15/2017 COMPLETE BLOOD COUNT 7435481 RDW 13.1 % 07/15/2017 COMPLETE BLOOD COUNT 6701532 Eos Auto 1.2 % 07/15/2017 COMPLETE BLOOD COUNT 3136223 Baso Auto 0.2 % 07/15/2017 COMPLETE BLOOD COUNT 9416363 Neutrophil Abs 5.58 10e9/L 07/15/2017 COMPLETE BLOOD COUNT 1939382 Lymphocyte Abs 2.84 10e9/L 07/15/2017 COMPLETE BLOOD COUNT 2992662 Monocyte Abs 0.65 10e9/L 07/15/2017 COMPLETE BLOOD COUNT 3420527 Eosinophil Abs 0.11 10e9/L 07/15/2017 COMPLETE BLOOD COUNT 6623659 RDW-SD 46.1 fL 07/15/2017 COMPLETE BLOOD COUNT 6337948 Basophil Abs 0.02 10e9/L 07/15/2017 GFR CALC 8199414 GFR Non Afr Amr >60 mL/min 07/15/2017 GFR CALC 3333479 GFR Afr Amr >60 mL/min 07/15/2017 COMPREHENSIVE METABOLIC 66279 AST 16 U/L 07/15/2017 COMPREHENSIVE METABOLIC 41873 ALT 20 U/L 07/15/2017 COMPREHENSIVE METABOLIC 99320 BUN 13 mg/dL 07/15/2017 COMPREHENSIVE METABOLIC 22495 ALBUMIN 4.6 g/dL 07/15/2017 COMPREHENSIVE METABOLIC 60863 CHLORIDE 106 mmol/L 07/15/2017 COMPREHENSIVE METABOLIC 11114 Bili Total 0.3 mg/dL 07/15/2017 COMPREHENSIVE METABOLIC 79712 ALK PHOS 50 U/L 07/15/2017 COMPREHENSIVE METABOLIC 14456 SODIUM 137 mmol/L 07/15/2017 COMPREHENSIVE METABOLIC 41737 CREATININE 0.62 mg/dL 07/15/2017 COMPREHENSIVE METABOLIC 94707 CALCIUM 9.2 mg/dL 07/15/2017 COMPREHENSIVE METABOLIC 78534 POTASSIUM 3.8 mmol/L 07/15/2017 COMPREHENSIVE METABOLIC 69459 Total Protein 6.7 g/dL 07/15/2017 COMPREHENSIVE METABOLIC 50552 Glucose 83 mg/dL 07/15/2017 COMPREHENSIVE METABOLIC 01587 Bicarbonate 30 mmol/L 07/15/2017 COMPREHENSIVE METABOLIC 87199 AGAP 1 mmol/L 07/15/2017 THYROID STIMULATING HORMONE 92173 TSH 2.111 uIU/mL 201 7 COMPREHENSIVE METABOLIC 04878 AST 33 U/L 08/27/2016 COMPREHENSIVE METABOLIC 45393 ALT 55 U/L 08/27/2016 COMPREHENSIVE METABOLIC 34218 BUN 11 mg/dL 08/27/2016 COMPREHENSIVE METABOLIC 89728 ALBUMIN 4.6 g/dL 08/27/2016 COMPREHENSIVE METABOLIC 10285 CHLORIDE 103 mmol/L 08/27/2016 COMPREHENSIVE METABOLIC 03293 Bili Total 0.3 mg/dL 08/27/2016 COMPREHENSIVE METABOLIC 90867 ALK PHOS 60 U/L 08/27/2016 COMPREHENSIVE METABOLIC 15423 SODIUM 140 mmol/L 08/27/2016 COMPREHENSIVE METABOLIC 96620 CREATININE 0.69 mg/dL 08/27/2016 COMPREHENSIVE METABOLIC 45196 CALCIUM 9.3 mg/dL 08/27/2016 COMPREHENSIVE METABOLIC 63362 POTASSIUM 3.7 mmol/L 08/27/2016 COMPREHENSIVE METABOLIC 56042 Total Protein 6.8 g/dL 08/27/2016 COMPREHENSIVE METABOLIC 33998 Glucose 79 mg/dL 08/27/2016 COMPREHENSIVE METABOLIC 12910 Bicarbonate 25 mmol/L 08/27/2016 COMPREHENSIVE METABOLIC 81983 AGAP 12 mmol/L 08/27/2016 COMPLETE BLOOD COUNT 7416895 WBC 9.4 10e9/L 08/27/2016 COMPLETE BLOOD COUNT 6187858 RBC 4.35 10e12/L 7 COMPLETE BLOOD COUNT 9154647 HEMOGLOBIN 14.2 g/dL 08/27/2016 COMPLETE BLOOD COUNT 9528303 HEMATOCRIT 41.5 % 08/27/2016 COMPLETE BLOOD COUNT 6603840 MCV 95.4 fL 08/27/2016 COMPLETE BLOOD COUNT 8404287 MCH 32.6 pg 08/27/2016 COMPLETE BLOOD COUNT 8778451 MCHC 34.2 g/dL 08/27/2016 COMPLETE BLOOD COUNT 0320826 PLATELET COUNT 289 10e9/L 08/27/2016 COMPLETE BLOOD COUNT 8602804 Mean Plt Volume 9.8 fL 08/27/2016 COMPLETE BLOOD COUNT 3386987 Neut Auto 47.7 % 08/27/2016 COMPLETE BLOOD COUNT 7186732 Lymph Auto 44.2 % 08/27/2016 COMPLETE BLOOD COUNT 2521607 Walker Auto 6.6 % 08/27/2016 COMPLETE BLOOD COUNT 4918896 Eos Auto 1.4 % 08/27/2016 COMPLETE BLOOD COUNT 4821452 RDW 12.9 % 08/27/2016 COMPLETE BLOOD COUNT 8314088 Baso Auto 0.1 % 08/27/2016 COMPLETE BLOOD COUNT 6512703 Neutrophil Abs 4.48 10e9/L 08/27/2016 COMPLETE BLOOD COUNT 8571206 Lymphocyte Abs 4.15 10e9/L 08/27/2016 COMPLETE BLOOD COUNT 7674713 Monocyte Abs 0.62 10e9/L 08/27/2016 COMPLETE BLOOD COUNT 6760647 Eosinophil Abs 0.13 10e9/L 08/27/2016 COMPLETE BLOOD COUNT 8385244 RDW-SD 43.9 fL 08/27/2016 COMPLETE BLOOD COUNT 9689382 Basophil Abs 0.01 10e9/L 08/27/2016 PT 8680196 PT 15.0 Seconds 08/27/2016 PT 5959277 INR 1.2 08/27/2016 GFR CALC 9060499 GFR Afr Amr >60 mL/min 08/27/2016 GFR CALC 7334767 GFR Non Afr Amr >60 mL/min 08/27/2016 GFR CALC 7961009 GFR Non Afr Amr >60 mL/min 05/24/2016 GFR CALC 5472949 GFR Afr Amr >60 mL/min 05/24/2016 COMPREHENSIVE METABOLIC 92953 AST 19 U/L 05/24/2016 COMPREHENSIVE METABOLIC 14019 ALT 23 U/L 05/24/2016 COMPREHENSIVE METABOLIC 45635 BUN 12 mg/dL 05/24/2016 COMPREHENSIVE METABOLIC 64062 ALBUMIN 4.1 g/dL 05/24/2016 COMPREHENSIVE METABOLIC 40230 CHLORIDE 105 mmol/L 05/24/2016 COMPREHENSIVE METABOLIC 45593 Bili Total 0.4 mg/dL 05/24/2016 COMPREHENSIVE METABOLIC 85479 ALK PHOS 52 U/L 05/24/2016 COMPREHENSIVE METABOLIC 51633 SODIUM 136 mmol/L 05/24/2016 COMPREHENSIVE METABOLIC 08656 CREATININE 0.61 mg/dL 05/24/2016 COMPREHENSIVE METABOLIC 79681 CALCIUM 8.8 mg/dL 05/24/2016 COMPREHENSIVE METABOLIC 08583 POTASSIUM 3.8 mmol/L 05/24/2016 COMPREHENSIVE METABOLIC 36028 Total Protein 6.2 g/dL 05/24/2016 COMPREHENSIVE METABOLIC 07552 Glucose 95 mg/dL 05/24/2016 COMPREHENSIVE METABOLIC 95339 Bicarbonate 19 mmol/L 05/24/2016 COMPREHENSIVE METABOLIC 20231 AGAP 12 mmol/L 05/24/2016 PT 8505692 PT 25.7 Seconds 05/24/2016 PT 5265198 INR 2.4 05/24/2016 PT 1663663 PT 22.2 Seconds 04/11/2016 PT 5436433 INR 2.0 04/11/2016 PT 4391195 PT 16.5 Seconds 03/13/2016 PT 9309508 INR 1.4 03/13/2016 THYROID STIMULATING HORMONE 65015 TSH 1.151 uIU/mL 6 COMPLETE BLOOD COUNT 7145066 WBC 10.0 10e9/L 03/12/2016 COMPLETE BLOOD COUNT 3934584 RBC 4.08 10e12/L 6 COMPLETE BLOOD COUNT 3901011 HEMOGLOBIN 13.5 g/dL 03/12/2016 COMPLETE BLOOD COUNT 9424583 HEMATOCRIT 38.8 % 03/12/2016 COMPLETE BLOOD COUNT 6654924 MCV 95.1 fL 03/12/2016 COMPLETE BLOOD COUNT 6911037 MCH 33.1 pg 03/12/2016 COMPLETE BLOOD COUNT 3744428 MCHC 34.8 g/dL 03/12/2016 COMPLETE BLOOD COUNT 8275911 PLATELET COUNT 282 10e9/L 03/12/2016 COMPLETE BLOOD COUNT 2389516 Mean Plt Volume 9.6 fL 03/12/2016 COMPLETE BLOOD COUNT 0399358 Neut Auto 53.5 % 03/12/2016 COMPLETE BLOOD COUNT 1926568 Lymph Auto 39.0 % 03/12/2016 COMPLETE BLOOD COUNT 5980533 Walker Auto 5.9 % 03/12/2016 COMPLETE BLOOD COUNT 4284545 RDW 12.6 % 03/12/2016 COMPLETE BLOOD COUNT 6232537 Eos Auto 1.4 % 03/12/2016 COMPLETE BLOOD COUNT 3464977 Baso Auto 0.2 % 03/12/2016 COMPLETE BLOOD COUNT 2024196 Neutrophil Abs 5.35 10e9/L 03/12/2016 COMPLETE BLOOD COUNT 2673186 Lymphocyte Abs 3.90 10e9/L 03/12/2016 COMPLETE BLOOD COUNT 4118875 Monocyte Abs 0.59 10e9/L 03/12/2016 COMPLETE BLOOD COUNT 7198437 Eosinophil Abs 0.14 10e9/L 03/12/2016 COMPLETE BLOOD COUNT 1748228 RDW-SD 42.7 fL 03/12/2016 COMPLETE BLOOD COUNT 4342532 Basophil Abs 0.02 10e9/L 03/12/2016 COMPREHENSIVE METABOLIC 84080 AST 13 U/L 03/12/2016 COMPREHENSIVE METABOLIC 31472 ALT 11 U/L 03/12/2016 COMPREHENSIVE METABOLIC 19137 BUN 11 mg/dL 03/12/2016 COMPREHENSIVE METABOLIC 82426 ALBUMIN 4.1 g/dL 03/12/2016 COMPREHENSIVE METABOLIC 07368 CHLORIDE 107 mmol/L 03/12/2016 COMPREHENSIVE METABOLIC 22899 Bili Total 0.3 mg/dL 03/12/2016 COMPREHENSIVE METABOLIC 33728 ALK PHOS 41 U/L 03/12/2016 COMPREHENSIVE METABOLIC 71326 SODIUM 137 mmol/L 03/12/2016 COMPREHENSIVE METABOLIC 35741 CREATININE 0.62 mg/dL 03/12/2016 COMPREHENSIVE METABOLIC 74541 CALCIUM 9.0 mg/dL 03/12/2016 COMPREHENSIVE METABOLIC 44616 POTASSIUM 3.8 mmol/L 03/12/2016 COMPREHENSIVE METABOLIC 94322 Total Protein 6.1 g/dL 03/12/2016 COMPREHENSIVE METABOLIC 01034 Glucose 95 mg/dL 03/12/2016 COMPREHENSIVE METABOLIC 91590 Bicarbonate 23 mmol/L 03/12/2016 COMPREHENSIVE METABOLIC 35310 AGAP 7 mmol/L 03/12/2016 GFR CALC 9266385 GFR Afr Amr >60 mL/min 03/12/2016 GFR CALC 8363436 GFR Non Afr Amr >60 mL/min 03/12/2016 PT 3836154 PT 14.4 Seconds 02/12/2016 PT 1260313 INR 1.2 02/12/2016 PT 3955404 PT 26.1 Seconds 02/01/2016 PT 4487826 INR 2.4 02/01/2016 EB VIRUS VCA G/M + EBNA + [place] [address]|8 6665 x 2|96323 EBV VCA Ab IgG 3.70 11/13/2015 EB VIRUS VCA G/M + EBNA + [place] [address]|8 6665 x 2|62592 EBV VCA Ab IgM 0.47 11/13/2015 [place] VCA G/M + [place] + [place] [address]|8 6665 x 2|52386 EBV Nuclear Ab 2.24 11/13/2015 EB VIRUS VCA G/M + [place] + [place] [address]|8 6665 x 2|03777 EBV Early Ab 1.37 11/13/2015 PT 1770334 PT 18.9 Seconds 11/10/2015 PT 7169581 INR 1.6 11/10/2015 PT 8553158 PT 16.8 Seconds 09/29/2015 PT 7223754 INR 1.4 09/29/2015 COMPLETE BLOOD COUNT 3439502 WBC 9.6 10e9/L 09/29/2015 COMPLETE BLOOD COUNT 7967797 RBC 4.51 10e12/L 6 COMPLETE BLOOD COUNT 2182949 HEMOGLOBIN 14.8 g/dL 09/29/2015 COMPLETE BLOOD COUNT 1852811 HEMATOCRIT 43.3 % 09/29/2015 COMPLETE BLOOD COUNT 0144311 MCV 96.0 fL 09/29/2015 COMPLETE BLOOD COUNT 5931783 MCH 32.8 pg 09/29/2015 COMPLETE BLOOD COUNT 6243100 MCHC 34.2 g/dL 09/29/2015 COMPLETE BLOOD COUNT 3770550 PLATELET COUNT 310 10e9/L 09/29/2015 COMPLETE BLOOD COUNT 8345108 Mean Plt Volume 9.7 fL 09/29/2015 COMPLETE BLOOD COUNT 4026418 Neutrophil 60.3 % 09/29/2015 COMPLETE BLOOD COUNT 0347087 Lymph Auto % 32.4 % 09/29/2015 COMPLETE BLOOD COUNT 1251166 Monocyte Auto % 6.5 % 09/29/2015 COMPLETE BLOOD COUNT 0091246 RDW 12.8 % 09/29/2015 COMPLETE BLOOD COUNT 7229124 Eosinophil 0.7 % 09/29/2015 COMPLETE BLOOD COUNT 0082775 Basophil 0.1 % 09/29/2015 COMPLETE BLOOD COUNT 1257523 Neutrophil Abs 5.79 10e9/L 09/29/2015 COMPLETE BLOOD COUNT 9880899 Lymphoctye Abs 3.11 10e9/L 09/29/2015 COMPLETE BLOOD COUNT 9425784 Monocyte Abs 0.62 10e9/L 09/29/2015 COMPLETE BLOOD COUNT 9077362 Eosinophil Abs 0.07 10e9/L 09/29/2015 COMPLETE BLOOD COUNT 5245177 RDW-SD 43.6 fL 09/29/2015 COMPLETE BLOOD COUNT 4656369 Basophil Abs 0.01 10e9/L 09/29/2015 IRON 01839 Iron 86 ug/dL 09/29/2015 COMPLETE BLOOD COUNT 5959893 WBC 9.6 10e9/L 09/29/2015 COMPLETE BLOOD COUNT 5828086 RBC 4.51 10e12/L 6 COMPLETE BLOOD COUNT 5164770 HEMOGLOBIN 14.8 g/dL 09/29/2015 COMPLETE BLOOD COUNT 9853260 HEMATOCRIT 43.3 % 09/29/2015 COMPLETE BLOOD COUNT 8425777 MCV 96.0 fL 09/29/2015 COMPLETE BLOOD COUNT 0184733 MCH 32.8 pg 09/29/2015 COMPLETE BLOOD COUNT 1235117 MCHC 34.2 g/dL 09/29/2015 COMPLETE BLOOD COUNT 9694902 PLATELET COUNT 310 10e9/L 09/29/2015 COMPLETE BLOOD COUNT 5824024 Mean Plt Volume 9.7 fL 09/29/2015 COMPLETE BLOOD COUNT 1930504 Neutrophil 60.3 % 09/29/2015 COMPLETE BLOOD COUNT 9748587 Lymph Auto % 32.4 % 09/29/2015 COMPLETE BLOOD COUNT 2381751 Monocyte Auto % 6.5 % 09/29/2015 COMPLETE BLOOD COUNT 4800514 RDW 12.8 % 09/29/2015 COMPLETE BLOOD COUNT 3003800 Eosinophil 0.7 % 09/29/2015 COMPLETE BLOOD COUNT 8330645 Basophil 0.1 % 09/29/2015 COMPLETE BLOOD COUNT 2986551 Neutrophil Abs 5.79 10e9/L 09/29/2015 COMPLETE BLOOD COUNT 9183038 Lymphoctye Abs 3.11 10e9/L 09/29/2015 COMPLETE BLOOD COUNT 6224118 Monocyte Abs 0.62 10e9/L 09/29/2015 COMPLETE BLOOD COUNT 5439977 Eosinophil Abs 0.07 10e9/L 09/29/2015 COMPLETE BLOOD COUNT 6459766 RDW-SD 43.6 fL 09/29/2015 COMPLETE BLOOD COUNT 3974523 Basophil Abs 0.01 10e9/L 09/29/2015 PT 0566731 PT 16.8 Seconds 09/29/2015 PT 0051727 INR 1.4 09/29/2015 IRON 62930 Iron 86 ug/dL 09/29/2015 PT MT IVANNA 79261 PRO T PAULIE 19.4 SEC 07/27/2015 PT MT IVANNA 48754 INR M CMC 1.7 07/27/2015 PT MT IVANNA 47894 PRO T PAULIE 21.4 SEC 06/21/2015 PT MA IVANNA 11202 INR M CMC 1.9 06/21/2015 PT MT IVANNA 27064 PRO T PAULIE 24.5 SEC 05/24/2015 PT MA IVANNA 47172 INR M CMC 2.3 05/24/2015 Review of [...] - General Neurologic mental status Overall: alert None Full Exam - General Neurologic mental [...] Procedures Procedure Codes Date ROUTINE VENIPUNCTURE CPT-4: 46052 01/19/2019 PROTHROMBIN TIME CPT-4: 50305 01/19/2019 COMPLETE CBC W/AUTO DIFF WBC CPT-4: 54984 01/19/2019 ANTISTREPTOLYSIN O T ITER CPT-4: 57288 01/19/2019 HEPATIC FUNCTION PANEL CPT-4: 88606 01/19/2019 MYCOPLASMA ANTIBODY, IFA CPT-4: 98936C6 01/19/2019 RESPIRATORY CULTURE & STAIN CPT-4: 67402 01/19/2019 STREP A ASSAY W/OPTIC CPT-4: 11358 01/19/2019 THER/PROPH/DIAG INJ SC/IM CPT-4: 00661 01/04/2019 TRIAMCINOLONE ACET I NJ NOS CPT-4: J3301 01/04/2019 ROUTINE VENIPUNCTURE CPT-4: 37483 12/18/2018 COMPLETE CBC W/AUTO DIFF WBC CPT-4: 95635 12/18/2018 COMPREHEN METABOLIC PANEL CPT-4: 82689 12/18/2018 HYDRATION IV INFUSIO N INIT CPT-4: 17335 12/16/2018 STREP A ASSAY W/OPTIC CPT-4: 56650 12/02/2018 ROUTINE VENIPUNCTURE CPT-4: 03762 11/30/2018 PT CPT-4: 5435736 11/30/2018 CEFTRIAXONE SODIUM I NJECTION CPT-4: J0696 11/30/2018 THER/PROPH/DIAG INJ SC/IM CPT-4: 16016 11/30/2018 URINE CULTURE/ COLON Y COUNT CPT-4: 79073 11/20/2018 URINALYSIS NONAUTO W /O SCOPE CPT-4: 10710 11/20/2018 CEFTRIAXONE SODIUM I NJECTION CPT-4: J0696 11/12/2018 THER/PROPH/DIAG INJ SC/IM CPT-4: 39018 11/12/2018 STREP A ASSAY W/OPTIC CPT-4: 00761 11/11/2018 CEFTRIAXONE SODIUM I NJECTION CPT-4: J0696 11/11/2018 THER/PROPH/DIAG INJ SC/IM CPT-4: 64768 11/11/2018 ROUTINE VENIPUNCTURE CPT-4: 35358 11/11/2018 ANTISTREPTOLYSIN O T ITER CPT-4: 71553 11/11/2018 COMPLETE CBC W/AUTO DIFF WBC CPT-4: 61608 11/11/2018 ROUTINE VENIPUNCTURE CPT-4: 62770 10/27/2018 PT CPT-4: 9993048 10/27/2018 THER/PROPH/DIAG INJ SC/IM CPT-4: 37144 10/09/2018 TRIAMCINOLONE ACET I NJ NOS CPT-4: J3301 10/09/2018 CEFTRIAXONE SODIUM I NJECTION CPT-4: J0696 10/08/2018 THER/PROPH/DIAG INJ SC/IM CPT-4: 17243 10/08/2018 CEFTRIAXONE SODIUM I NJECTION CPT-4: J0696 10/07/2018 THER/PROPH/DIAG INJ SC/IM CPT-4: 72882 10/07/2018 ROUTINE VENIPUNCTURE CPT-4: 73221 09/25/2018 COMPREHEN METABOLIC PANEL CPT-4: 14287 09/25/2018 COMPLETE CBC W/AUTO DIFF WBC CPT-4: 74246 09/25/2018 PT CPT-4: 1823818 09/25/2018 URINE CULTURE/ COLON Y COUNT CPT-4: 76188 09/10/2018 URINALYSIS NONAUTO W /O SCOPE CPT-4: 39580 09/10/2018 CEFTRIAXONE SODIUM I NJECTION CPT-4: J0696 09/08/2018 THER/PROPH/DIAG INJ SC/IM CPT-4: 52253 09/08/2018 ROUTINE VENIPUNCTURE CPT-4: 53793 08/14/2018 PT CPT-4: 6788135 08/14/2018 CEFTRIAXONE SODIUM I NJECTION CPT-4: J0696 07/02/2018 THER/PROPH/DIAG INJ SC/IM CPT-4: 28260 07/02/2018 THER/PROPH/DIAG INJ SC/IM CPT-4: 74487 07/02/2018 TRIAMCINOLONE ACET I NJ NOS CPT-4: J3301 07/02/2018 ROUTINE VENIPUNCTURE CPT-4: 19206 06/22/2018 ANTISTREPTOLYSIN O T ITER CPT-4: 45342 06/22/2018 ROUTINE VENIPUNCTURE CPT-4: 45775 06/17/2018 PROTHROMBIN TIME CPT-4: 86345 06/17/2018 URINE CULTURE/ COLON Y COUNT CPT-4: 62456 06/17/2018 CEFTRIAXONE SODIUM I NJECTION CPT-4: J0696 05/12/2018 THER/PROPH/DIAG INJ SC/IM CPT-4: 55061 05/12/2018 PROTHROMBIN TIME CPT-4: 79262 05/11/2018 CEFTRIAXONE SODIUM I NJECTION CPT-4: J0696 05/11/2018 THER/PROPH/DIAG INJ SC/IM CPT-4: 67574 05/11/2018 ROUTINE VENIPUNCTURE CPT-4: 11918 04/30/2018 PROTHROMBIN TIME CPT-4: 07023 04/30/2018 THER/PROPH/DIAG INJ SC/IM CPT-4: 19817 04/02/2018 TRIAMCINOLONE ACET I NJ NOS CPT-4: J3301 04/02/2018 IIV4 VACCINE 3 YRS+ IM AND UP CPT-4: 65757 03/24/2018 IMMUNIZATION ADMIN CPT- 4: 82529 03/24/2018 ROUTINE VENIPUNCTURE CPT-4: 86108 03/24/2018 PT CPT-4: 3765047 03/24/2018 PROTHROMBIN TIME CPT-4: 46916 02/24/2018 ROUTINE VENIPUNCTURE CPT-4: 43414 02/24/2018 ROUTINE VENIPUNCTURE CPT-4: 27014 02/05/2018 PROTHROMBIN TIME CPT-4: 54112 02/05/2018 URINE CULTURE/ COLON Y COUNT CPT-4: 05204 02/05/2018 CEFTRIAXONE SODIUM I NJECTION CPT-4: J0696 01/29/2018 THER/PROPH/DIAG INJ SC/IM CPT-4: 80360 01/29/2018 CEFTRIAXONE SODIUM I NJECTION CPT-4: J0696 01/28/2018 THER/PROPH/DIAG INJ SC/IM CPT-4: 07470 01/28/2018 URINALYSIS NONAUTO W /O SCOPE CPT-4: 60184 01/26/2018 URINE CULTURE/ COLON Y COUNT CPT-4: 23508 01/26/2018 ROUTINE VENIPUNCTURE CPT-4: 27958 01/01/2018 PROTHROMBIN TIME CPT-4: 35413 01/01/2018 THER/PROPH/DIAG INJ SC/IM CPT-4: 80792 12/25/2017 TRIAMCINOLONE ACET I NJ NOS CPT-4: J3301 12/25/2017 DEXAMETHASONE SODIUM PHOS CPT-4: J1100 12/25/2017 STREP A ASSAY W/OPTIC CPT-4: 05455 12/11/2017 CEFTRIAXONE SODIUM I NJECTION CPT-4: J0696 12/11/2017 THER/PROPH/DIAG INJ SC/IM CPT-4: 06741 12/11/2017 ROUTINE VENIPUNCTURE CPT-4: 73692 12/01/2017 ANTISTREPTOLYSIN O T ITER CPT-4: 40248 12/01/2017 PROTHROMBIN TIME CPT-4: 67529 12/01/2017 VITAMIN D TOTAL (25 HYDROXY) CPT-4: 72028 12/01/2017 VITAMIN B-12 CPT-4: 94728 12/01/2017 SPECIMEN HANDLING OF FICE-LAB CPT-4: 28946 11/05/2017 ROUTINE VENIPUNCTURE CPT-4: 10128 10/14/2017 ANTISTREPTOLYSIN O T ITER CPT-4: 91304 10/14/2017 ROUTINE VENIPUNCTURE CPT-4: 05766 10/06/2017 PROTHROMBIN TIME CPT-4: 92414 10/06/2017 THER/PROPH/DIAG INJ SC/IM CPT-4: 18680 10/06/2017 TRIAMCINOLONE ACET I NJ NOS CPT-4: J3301 10/06/2017 ROUTINE VENIPUNCTURE CPT-4: 02288 10/01/2017 VITAMIN B-12 CPT-4: 72762 10/01/2017 FOLIC ACID CPT-4: 17872 10/01/2017 ASSAY THYROID STIM H ORMONE CPT-4: 86096 10/01/2017 ASSAY OF FREE THYROXINE CPT-4: 07430 10/01/2017 ASSAY TRIIODOTHYRONI NE (T3) CPT-4: 22293 10/01/2017 ASSAY OF BLOOD/URIC ACID CPT-4: 36099 10/01/2017 RHEUMATOID FACTOR QUANT CPT-4: 75099 10/01/2017 RBC SED RATE AUTOMATED CPT-4: 40329 10/01/2017 ANTISTREPTOLYSIN O T ITER CPT-4: 84650 10/01/2017 ASSAY OF IRON CPT-4: 59015 10/01/2017 ASSAY OF FERRITIN CPT-4: 86564 10/01/2017 ANTINUCLEAR ANTIBODIES CPT-4: 82622 10/01/2017 A1C HPLC CPT-4: 73970 10/01/2017 VITAMIN D TOTAL (25 HYDROXY) CPT-4: 75501 10/01/2017 THER/PROPH/DIAG INJ SC/IM CPT-4: 21448 09/05/2017 TRIAMCINOLONE ACET I NJ NOS CPT-4: J3301 09/05/2017 URINALYSIS NONAUTO W /O SCOPE CPT-4: 69349 09/05/2017 URINE CULTURE/ COLON Y COUNT CPT-4: 34394 09/05/2017 ROUTINE VENIPUNCTURE CPT-4: 59678 09/04/2017 PROTHROMBIN TIME CPT-4: 90728 09/04/2017 ROUTINE VENIPUNCTURE CPT-4: 16730 08/07/2017 COMPLETE CBC W/AUTO DIFF WBC CPT-4: 16903 08/07/2017 COMPREHEN METABOLIC PANEL CPT-4: 25537 08/07/2017 PROTHROMBIN TIME CPT-4: 36406 08/07/2017 INFLUENZA ASSAY W/OPTIC CPT-4: 85484 07/15/2017 ROUTINE VENIPUNCTURE CPT-4: 67758 07/15/2017 COMPREHEN METABOLIC PANEL CPT-4: 23466 07/15/2017 COMPLETE CBC W/AUTO DIFF WBC CPT-4: 64671 07/15/2017 CEFTRIAXONE SODIUM I NJECTION CPT-4: J0696 07/04/2017 THER/PROPH/DIAG INJ SC/IM CPT-4: 34249 07/04/2017 THER/PROPH/DIAG INJ SC/IM CPT-4: 26195 07/04/2017 TRIAMCINOLONE ACET I NJ NOS CPT-4: J3301 07/04/2017 CEFTRIAXONE SODIUM I NJECTION CPT-4: J0696 07/02/2017 THER/PROPH/DIAG INJ SC/IM CPT-4: 30068 07/02/2017 CEFTRIAXONE SODIUM I NJECTION CPT-4: J0696 07/01/2017 THER/PROPH/DIAG INJ SC/IM CPT-4: 19915 07/01/2017 ROUTINE VENIPUNCTURE CPT-4: 21639 06/19/2017 PROTHROMBIN TIME CPT-4: 60959 06/19/2017 THER/PROPH/DIAG INJ SC/IM CPT-4: 71085 04/01/2017 TRIAMCINOLONE ACET I NJ NOS CPT-4: J3301 04/01/2017 ROUTINE VENIPUNCTURE CPT-4: 07323 02/10/2017 PROTHROMBIN TIME CPT-4: 27075 02/10/2017 URINALYSIS NONAUTO W /O SCOPE CPT-4: 96690 02/10/2017 URINE CULTURE/ COLON Y COUNT CPT-4: 21278 02/10/2017 ROUTINE VENIPUNCTURE CPT-4: 03966 02/05/2017 PROTHROMBIN TIME CPT-4: 55693 02/05/2017 THROAT CULTURE CPT-4: 52793 02/03/2017 STREP A ASSAY W/OPTIC CPT-4: 43021 01/13/2017 ROUTINE VENIPUNCTURE CPT-4: 46555 12/18/2016 PROTHROMBIN TIME CPT-4: 63747 12/18/2016 URINE CULTURE/ COLON Y COUNT CPT-4: 30035 08/27/2016 ASSAY THYROID STIM H ORMONE CPT-4: 77945 08/27/2016 COMPREHEN METABOLIC PANEL CPT-4: 84894 08/27/2016 COMPLETE CBC W/AUTO DIFF WBC CPT-4: 77481 08/27/2016 PROTHROMBIN TIME CPT-4: 52907 08/27/2016 ROUTINE VENIPUNCTURE CPT-4: 20030 08/27/2016 ROUTINE VENIPUNCTURE CPT-4: 28606 05/24/2016 COMPREHEN METABOLIC PANEL CPT-4: 04852 05/24/2016 PROTHROMBIN TIME CPT-4: 73375 05/24/2016 URINALYSIS NONAUTO W /O SCOPE CPT-4: 66773 04/23/2016 URINE CULTURE/ COLON Y COUNT CPT-4: 11271 04/23/2016 PRESCRIP TRANSMIT A ERX SY CPT-4: G8553 04/23/2016 AEROBIC WOUND CULTUR E & STN CPT-4: 15305 04/17/2016 ROUTINE VENIPUNCTURE CPT-4: 60845 04/11/2016 PROTHROMBIN TIME CPT-4: 21693 04/11/2016 ROUTINE VENIPUNCTURE CPT-4: 86951 03/12/2016 COMPLETE CBC W/AUTO DIFF WBC CPT-4: 67816 03/12/2016 COMPREHEN METABOLIC PANEL CPT-4: 23230 03/12/2016 ASSAY THYROID STIM H ORMONE CPT-4: 51434 03/12/2016 PROTHROMBIN TIME CPT-4: 13984 03/12/2016 ROUTINE VENIPUNCTURE CPT-4: 39319 02/12/2016 PROTHROMBIN TIME CPT-4: 77132 02/12/2016 ROUTINE VENIPUNCTURE CPT-4: 70556 02/01/2016 PROTHROMBIN TIME CPT-4: 13243 02/01/2016 ROUTINE VENIPUNCTURE CPT-4: 86645 01/22/2016 PROTHROMBIN TIME CPT-4: 06214 01/22/2016 ROUTINE VENIPUNCTURE CPT-4: 98710 11/10/2015 PROTHROMBIN TIME CPT-4: 72865 11/10/2015 CEFTRIAXONE SODIUM I NJECTION CPT-4: J0696 11/10/2015 THER/PROPH/DIAG INJ SC/IM CPT-4: 97027 11/10/2015 EB VIRUS VCA G/M + E BNA + EA CPT-4: 57878|50130 x 2|63766 016 THROAT CULTURE CPT-4: 26593 11/09/2015 STREP A ASSAY W/OPTIC CPT-4: 85022 11/09/2015 STREP A ASSAY W/OPTIC CPT-4: 64759 10/02/2015 ROUTINE VENIPUNCTURE CPT-4: 63997 09/29/2015 COMPLETE CBC W/AUTO DIFF WBC CPT-4: 35004 09/29/2015 ASSAY OF IRON CPT-4: 04990 09/29/2015 PROTHROMBIN TIME CPT-4: 28387 09/29/2015 ROUTINE VENIPUNCTURE CPT-4: 09232 07/27/2015 PROTHROMBIN TIME CPT-4: 21332 07/27/2015 URINALYSIS NONAUTO W /O SCOPE CPT-4: 86064 06/30/2015 URINE CULTURE/ COLON Y COUNT CPT-4: 76722 06/30/2015 ROUTINE VENIPUNCTURE CPT-4: 46436 06/21/2015 PROTHROMBIN TIME CPT-4: 22254 06/21/2015 URINE CULTURE/ COLON Y COUNT CPT-4: 69122 05/31/2015 ROUTINE VENIPUNCTURE CPT-4: 04525 05/24/2015 PROTHROMBIN TIME CPT-4: 05392 05/24/2015 URINALYSIS NONAUTO W /O SCOPE CPT-4: 85212 05/24/2015 Vital Signs Date Vital 01/19/2019 Blood [...] 1: 122/70 Code: 8480-6 BMI: 32.2 Code: 44394-9 Heart Rate 1: 88 bpm Height: 5'3" Respiratory Rate: 20 bpm SpO2: 96% Temperature: 36.8 (C ) / 98.2 (F) Weight: 182 lbs 07/23/2018 Blood Pressure 1: 132/80 Code: 8480-6 Heart Rate 1: 84 bpm Respiratory Rate: 20 bpm SpO2: 96% Temperature: 36.6 (C ) / 97.8 (F) Weight: 187 lbs 07/08/2018 Blood Pressure 1: 122/70 Code: 8480-6 BMI: 32.2 Code: 53671-8 Heart Rate 1: 88 bpm Height: 5'3" Respiratory Rate: 20 bpm Temperature: 36.6 (C ) / 97.8 (F) Weight: 182 lbs 07/02/2018 Blood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 [address] ACUTE ILLNESS 11/11/2018 Appointment: Kristine Brambila WPtel: [address] [place] [address] ACUTE ILLNESS 10/27/2018 Appointment: Kristine Brambila WPtel: [address] [place] [address] [place] INJECTION 10/09/2018 Visit Diagnosis Plan: Acute recurrent maxillary sinusi tis Discussion: Rocephin 1 gram administered in clinic- patient tolerated well. Continue with supportive treatment at home as well. Tylenol for headache. Salt water gargles and sinus rinses advised. Patient states understanding. ICD-9 : 461.0 ICD-10 : J01.01 10/08/2018 Appointment: Lulu Navarro [facility] Jaqueline [place] [address] [place] INJECTION 10/08/2018 Visit Diagnosis Plan: Acute recurrent maxillary sinusi tis Discussion: Rocephin- 1 gram administered in clinic. Patient tolerated well. Sinus rinses encouraged. Rest and fluids. Tylenol or Motrin for pain and fever. FU PRN. Patient states understanding. ICD-9 : 461.0 ICD-10 : J01.01 10/07/2018 Appointment: Lulu Navarro [address] [place], [place] [id number] ACUTE ILLNESS 10/07/2018 Visit Diagnosis Plan: Dizziness [...] : R42 09/25/2018 Appointment: Lulu Navarro [address] [place], [place] [id number] ACUTE ILLNESS 09/25/2018 Appointment: Kristine Brambila WPtel: [address] [place], [place] [phone] UA 09/10/2018 Visit Diagnosis Plan: Furuncle right [...] : A49.1 09/08/2018 Appointment: Kristine Brambila WPtel: [address] [place], [place] [address] ACUTE ILLNESS 09/08/2018 Patient Education: cefdinir- OptimizeRX Coupon [id number] https://www.[employer].eDiets.com/samplemd/resources/getResource/61/[email or web address]-p9 Completed 09/08/2018 Appointment: Kristine Brambila WPtel: [phone] [facility] [facility] 08/14/2018 Visit Diagnosis Plan: Otalgia, [...] ICD-10 : J01.90 07/23/2018 Appointment: Ivon Sky [address] [place] [address] ACUTE ILLNESS 07/23/2018 Patient Education: cyclobenzaprine- Opti mizeRX Coupon [id number] https://www.[employer]/samplemd/resources/getResource/61/b191j8ym-s636-620x-zh [email or web address].pdf Completed 07/23/2018 Visit Diagnosis Plan: Streptococcal infe ction, unspecified site Discussion: Pen V K Sees dentist today t o assess tooth ICD-9 : 041.00 ICD-10 : A49.1 07/08/2018 Appointment: Kristine Brambila WPtel: [address] [place], [place] [phone] FOLLOW UP 07/08/2018 Patient Education: penicillin V potassiu m- OptimizeRX Coupon [id number] https://www.[employer]/samplemd/resources/getResource/61/[email or web address] fa-[email or web address].pdf Completed 07/08/2018 Visit Diagnosis Plan: Localized enlarged [...] ICD-10 : K04.6 07/02/2018 Appointment: Ivon Sky [address] [place] [address] ACUTE ILLNESS 07/02/2018 Appointment: Kristine Brambila WPtel: [address] [place] [address] LAB 06/22/2018 Appointment: Kristine Brambila WPtel: [address] [place] [address] [place] UA 06/17/2018 Visit Diagnosis Plan: Acute sinusitis, unspecified Discussion: dc keflex. start cefdinir daily for 10 days. saline up nares prn congestion. if no improvement after antibiotics or worsening symtpoms, call clinic. ICD-9 : 461.9 ICD-10 : J01.90 06/02/2018 Appointment: Ivon Sky [address] [place] [address] ACUTE ILLNESS 06/02/2018 Appointment: Kristine Brambila WPtel: [address] [place] [address] [place] INJECTION 05/12/2018 Visit Diagnosis Plan: prison [...] ICD-10 : H70.002 05/11/2018 Appointment: Ivon Sky [address] [place], [place] [address] FOLLOW UP 05/11/2018 Appointment: Kristine Brambila WPtel: [address] [place], [place] [phone] LAB 04/30/2018 Visit Diagnosis Plan: Acute sinusitis, unspecified Discussion: 40 mg kenalog given to patient in office. clindamycin prescribed for patient to take as directed. instructed to stop nasal sprays due to worsening pain/irritation and only use saline rinse up nares for now. call with any new or worsening symptoms. ICD-9 : 461.9 ICD-10 : J01.90 04/02/2018 Appointment: Ivon Sky [address] [place] [address] ACUTE ILLNESS 04/02/2018 Patient Education: Patient Medication Summary Completed 04/02/2018 Appointment: Kristine Brambila WPtel: [address] [place] [address] LAB 03/24/2018 Patient Education: Patient Medication Summary [...] ICD-10 : J30.89 03/16/2018 Appointment: Ivon Sky [address] [place] [address] ACUTE ILLNESS 03/16/2018 Patient Education: Patient Medication Summary Completed 03/16/2018 Appointment: Kristine Brambila WPtel: [address] [place], [place] [phone] LAB 02/24/2018 Patient Education: Patient Medication Summary Completed 02/24/2018 Appointment: Kristine Brambila WPtel: [address] [place], [place] [address] US RESCHEDULED 02/18/2018 Visit Diagnosis Plan: Abdominal distension (gaseous) Discussion: Wanda Restora Rx 1 daily Follow Up: 2 weeks ICD-9 : 787.3 ICD-10 : R14.0 02/16/2018 Visit Diagnosis Plan: Epigastric pain Discussion: Pepcid BID ICD-9 : 789.06 ICD-10 : R10.13 02/16/2018 Visit Diagnosis Plan: Diarrhea, unspecified Discussion: Wanda ICD-9 : 787.91 ICD-10 : R19.7 02/16/2018 Appointment: Kristine Brambila WPtel: [address] [place], [place] [id number] [place] ACUTE ILLNESS 02/16/2018 Patient Education: Patient Medication Summary Completed 02/16/2018 Appointment: Kristine Brambila WPtel: [address] [place], [place] [id number] [place] INJECTION 02/05/2018 Patient Education: Patient Medication Summary Completed 02/05/2018 Appointment: Kristine Brambila WPtel: [address] [place], [place] [id number] [place] INJECTION 01/29/2018 Patient Education: Patient Medication Summary Completed 01/29/2018 Appointment: Kristine Brambila WPtel: [address] [place] [address] [place] INJECTION 01/28/2018 Patient Education: Patient Medication [...] ICD-10 : Z77.21 01/26/2018 Appointment: Ivon Sky [address] [place] [address] ACUTE ILLNESS 01/26/2018 Patient Education: Patient Medication [...] ICD-10 : K13.79 01/01/2018 Appointment: Ivon Sky [address] [place] [address] ACUTE ILLNESS 01/01/2018 Patient Education: Patient Medication [...] ICD-10 : G43.909 12/25/2017 Appointment: Ivon Sky [address] [place], [place] [address] ACUTE ILLNESS 12/25/2017 Patient Education: Patient Medication Summary Completed 12/25/2017 Visit Diagnosis Plan: Acute pharyngitis, unspecified Discussion: rapid strep negative. rocephin injection given in office. clindamycin prescribed as well to start tomorrow for 10 days. increase fluid intake. call or rtc next week if new or worsening symptoms. ICD-9 : 462 ICD-10 : J02.9 12/11/2017 Appointment: Ivon Sky [address] [place] [address] ACUTE ILLNESS 12/11/2017 Patient Education: Patient Medication Summary Completed 12/11/2017 Appointment: Kristine Brambila WPtel: [address] [place], [place] [phone] LAB 12/01/2017 Patient Education: Patient Medication Summary Completed 12/01/2017 Visit Diagnosis Plan: Encounter for gyne cological examination (general) (routine) without abnormal findings Discussion: Pap done as has a history of choriocarcinoma Had mammogram last month ICD-9 : V72.31 ICD-10 : Z01.419 11/05/2017 Appointment: Kristine Brambila WPtel: [address] [place] [address] Annual Well Visit 11/05/2017 Patient Education: Patient Medication Summary Completed 11/05/2017 Appointment: Kristine Brambila WPtel: [address] [place], [place] [phone] LAB 10/14/2017 Patient Education: Patient Medication Summary Completed 10/14/2017 Care Plan: X-RAY EXAM OF SHOULDER right LOINC : 20916-5 Pending 10/07/2017 Visit Diagnosis Plan: Pain in right shoulder Discussion: xray ordered of right shoulder to rule out fracture. 40 mg kenalog given as one shot to assist with pain. ICD-9 : 719.41 ICD-10 : M25.511 10/06/2017 Visit Diagnosis Plan: emt 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 (current ) use of anticoagulants Discussion: pt/inr completed at today's visit. ICD-9 : V58.61 ICD-10 : Z79.01 10/06/2017 Appointment: Ivon Sky [facility]6676[facility] ACUTE ILLNESS 10/06/2017 Patient Education: Patient Medication [...] : R20.2 10/01/2017 Appointment: Kristine Brambila WPtel: [address] [place] [address] ACUTE ILLNESS 10/01/2017 Patient Education: Patient Medication [...] : T23.262A 09/10/2017 Appointment: Ivon Sky [address] [place] [address] ACUTE ILLNESS 09/10/2017 Patient Education: Patient Medication Summary Completed 09/10/2017 Appointment: Kristine Brambila WPtel: [address] [place] [address] INJECTION 09/05/2017 Patient Education: Patient Medication Summary Completed 09/05/2017 Appointment: Kristine Brambila WPtel: [address] [place] [address] LAB 09/04/2017 Patient Education: Patient Medication Summary Completed 09/04/2017 Appointment: Kristine Brambila WPtel: [address] [place] [address] LAB 08/07/2017 Patient Education: Patient Medication Summary Completed 08/07/2017 Patient Education: Patient Medication Summary Completed 07/21/2017 Care Plan: CHEST X-RAY 2VW FRONTAL&LATL LOINC : 20614-1 Pending 07/21/2017 Visit Diagnosis Plan: Acute upper [...] : K21.9 07/15/2017 Appointment: Ivon Sky 504 [facility] ACUTE ILLNESS 07/15/2017 Patient Education: Patient Medication Summary Completed 07/15/2017 Appointment: Kristine Brambila WPtel: [address] [place], [place] [phone] [place] INJECTION 07/04/2017 Patient Education: Patient Medication Summary Completed 07/04/2017 Appointment: Kristine Brambila WPtel: [address] [place], [place] [phone] [place] INJECTION 07/02/2017 Patient Education: Patient Medication [...] : H66.92 07/01/2017 Appointment: Ivon Sky 504 [facility] ACUTE ILLNESS 07/01/2017 Patient Education: Patient Medication Summary Completed 07/01/2017 Care Plan: US EXAM OF HEAD AND NECK Pending 07/01/2017 Appointment: Kristine Brambila WPtel: [address] [place], [place] [phone] [place] LAB 06/19/2017 Patient Education: Patient Medication [...] ICD-10 : J18.9 05/27/2017 Appointment: Ivon Sky [address] [place] [address] ACUTE ILLNESS 05/27/2017 Patient Education: Patient Medication [...] : G47.00 05/20/2017 Appointment: Ivon Sky 504 [facility]6676[facility] ACUTE ILLNESS 05/20/2017 Patient Education: Patient Medication Summary Completed 05/20/2017 Visit Diagnosis Plan: Headache Discu ssion: Discussed likely Migraine Discussed MRI results Discussed changing acetazolamide to HCTZ ICD-9 : 784.0 ICD-10 : R51 04/22/2017 Visit Diagnosis Plan: Diplopia Discu ssion: Updated dilated eye exam ICD-9 : 368.2 ICD-10 : H53.2 04/22/2017 Appointment: Kristine Brambilatel: [phone] [facility] FOLLOW UP 04/22/2017 Patient Education: Patient Medication Summary Completed 04/22/2017 Appointment: Kristine Brambila WPtel: [facility] US RESCHEDULED 04/07/2017 Visit Plan: Saline nasal flushes pr n. Tylenol/Motrin prn headache. Notify if persists/symptoms worsening. 04/01/2017 Visit Plan: Saline nasal flushes pr n. Tylenol/Motrin prn headache. Notify if persists/symptoms worsening. 04/01/2017 Visit NOS Plan: Plan Notes: Saline nasal flushes prn. Tyle... 04/01/2017 Visit Diagnosis Plan: Acute sinusitis, unspecified Discussion: Kenalog 40mg IM x1 Decadron/Garamycin Nose [place]ge[place] Mix Has appointment on April 28 with ENT ICD-9 : 461.9 ICD-10 : J01.90 04/01/2017 Appointment: Kristine Brambila WPtel: [address] [place], [place] [phone] ACUTE ILLNESS 04/01/2017 Patient Education: Patient Medication Summary Completed 04/01/2017 Referral: Serjio Lugo WPtel: [address]66[facility] Referral Appointment Requested 03/20/2017 Patient Education: Patient Medication Summary Completed 02/27/2017 Care Plan: CT ABDOMEN W/O DYE abd/pe lvis stone search LOINC : 76731-8 Pending 02/27/2017 Patient Education: Patient Medication Summary Completed 02/12/2017 Care Plan: MRI NECK SPINE W/O DYE LOINC : 82009-6 Pending 02/12/2017 Appointment: Kristine Brambila WPtel: [address] [place], [place] [phone] LAB 02/10/2017 Patient Education: Patient Medication Summary [...] Rest, Fluids... 02/05/2017 Appointment: Kristine Brambila WPtel: [address] [place], [place] [phone] ACUTE ILLNESS 02/05/2017 Patient Education: Patient Medication Summary Completed 02/05/2017 Care Plan: Referral Order SNOMED-CT : [id number] Pending 02/05/2017 Appointment: Kristine Brambila WPtel: [address] [place], [place] [phone] THROAT SWAB 02/03/2017 Patient Education: Patient Medication Summary Completed 02/03/2017 Appointment: Kristine Brambila WPtel: [address] [place], [place] [phone] 01/13 canceled~sl CANCELED 01/28/2017 Visit Plan: Supportive [...] Rest, Fluids... 01/13/2017 Appointment: Kristine Brambila WPtel: [facility] [facility]LL[facility] 01/13/2017 Patient Education: Patient Medication Summary Completed 01/13/2017 Appointment: Kristine Brambila WPtel: [facility] [facility] 12/18/2016 Patient Education: Patient Medication Summary Completed 12/18/2016 Visit Diagnosis Plan: Pain in unspecified joint Discussion: Will retry methotrexate since has worked in past to greatly reduce patient's pain--4 tabs week one then 5 tabs week 2 then 6 tabs weekly and fwup in 6 weeks ICD-9 : 719.49 ICD-10 : M25.50 11/27/2016 Appointment: Kristine Brambila WPtel: [facility] / lm~sl 11/26 confimed~sl MEDICATION REVIEW 11/27/2016 Patient Education: Patient Medication Summary Completed 11/27/2016 Visit Plan: Supportive care. Rest, Fluids, Tylenol/Motrin prn fever or bodyaches. Notify if worsening symptoms. 08/27/2016 Visit Plan: Supportive care. Rest, Fluids, Tylenol/Motrin prn fever or bodyaches. Notify if worsening symptoms. 08/27/2016 Visit NOS Plan: Plan Notes: Support gauri care. Rest, Fluids... 08/27/2016 Visit Diagnosis Plan: emt 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 (current ) use of anticoagulants Discussion: PT/INR drawn ICD-9 : V58.61 ICD-10 : Z79.01 08/27/2016 Visit Diagnosis Plan: Dysuria Discus steven: Culture urine ICD-9 : 788.1 ICD-10 : R30.0 08/27/2016 Visit Diagnosis Plan: URI, ACUTE Dis cussion: Supportive care ICD-9 : 465.9 ICD-10 : J06.9 08/27/2016 Appointment: Kristine Brambila WPtel: [address] [place], [place] [phone] 08/26 confirmed`sl MEDICATION REVIEW 08/27/2016 Patient Education: Patient Medication Summary Completed 08/27/2016 Appointment: Kristine Brambila WPtel: [address] [place] [address] BP CHECK 07/08/2016 Patient Education: Patient Medication Summary Completed 07/08/2016 Appointment: Kristine Brambila WPtel: [address] [place], [place] [phone] LAB 05/24/2016 Patient Education: Patient Medication Summary Completed 05/24/2016 Appointment: Kristine Brambila WPtel: [address] [place] [address] 04/24 will not be able to get [...] with culture results 04/23/2016 Appointment: Nayeli Anderson [address] [place] [address] ACUTE ILLNESS 04/23/2016 Patient Education: Patient Medication [...] add oral abx 04/17/2016 Appointment: Nayeli Anderson [address] [place] [address] ACUTE ILLNESS 04/17/2016 Patient Education: Patient Medication Summary Completed 04/17/2016 Patient Education: [facility] - Saving AutoInj - 18-64 - Dynamic Portal ID Completed 04/17/2016 Appointment: Krsitine Brambila WPtel: [address] [place], [place] [phone] LAB 04/11/2016 Patient Education: [...] migraines 03/12/2016 Appointment: Kristine Brambila WPtel: [address] [place] [address] 03/12 confirmed-sp FOLLOW UP 03/12/2016 Patient Education: Patient Medication Summary Completed 03/12/2016 Appointment: Kristine Brambila WPtel: [address] [place], [place] [phone] LAB 02/12/2016 Patient Education: Patient Medication Summary Completed 02/12/2016 Appointment: Kristine Brambila WPtel: [address] [place], [place] [phone] LAB 02/01/2016 Patient Education: Patient Medication Summary Completed 02/01/2016 Appointment: Kristine Brambila WPtel: [address] [place], [place] [phone] LAB 01/22/2016 Patient Education: Patient Medication [...] WPtel: [phone] [facility] ACUTE ILLNESS 11/10/2015 Patient Education: Patient Medication [...] care otherwise 11/09/2015 Appointment: Nayeli Anderson [address] ACUTE ILLNESS 11/09/2015 Patient Education: Patient Medication Summary Completed 11/09/2015 Referral: Maximiliano Neves WPtel: [phone] [id number] [place] Spoke with Sally at Dr. Ta's offic e. Patient is scheduled for 10/16/15 at 3:15pm. Demographics and notes have been faxed. Patient has been informed. -sp Initi ated 10/16/2015 Visit Plan: Proceed with biopsy/rem oval of right posterior neck node Mammogram ordered--US of right axilla if needed 10/10/2015 Appointment: Kristine Brambila WPtel: [phone] [facility] 10/08 confirmed ~sl FOLLOW UP 10/10/2015 Patient Education: Patient Medication Summary Completed 10/10/2015 Patient Education: [facility] - Saving AutoInj - 18-64 - Dynamic Portal ID Completed 10/10/2015 Care Plan: MAMMOGRAM SCREENING LOINC : 83705-8 Pending 10/10/2015 Visit Plan: Labs ordered - [...] with Dr Brambila for next week for long term care administrator management of pain 10/02/2015 Visit Plan: Labs [...] with Dr Brambila for next week for long term care administrator management of pain 10/02/2015 Appointment: Nayeli Anderson [address] [place] [address] ACUTE ILLNESS 10/02/2015 Patient Education: Patient Medication Summary Completed 10/02/2015 Patient Education: [facility] - Saving AutoInj - 18-64 - Dynamic Portal ID Completed 10/02/2015 Care Plan: US EXAM OF HEAD AND NECK Pending 10/02/2015 Appointment: Kristine Brambila WPtel: [address] [place] [address] [place] LAB 09/29/2015 Patient Education: Patient Medication Summary Completed 09/29/2015 Appointment: Kristine Brambila WPtel: [address] [place], [place] [phone] [place] LAB 07/27/2015 Patient Education: Patient Medication Summary Completed 07/27/2015 Visit Plan: Trial of Savella Did no t tolerate lyrica Did not tolerate cymbalta 07/10/2015 Appointment: Kristine Brambila WPtel: [address] [place], [place] [phone] 07/10 appt confirmed cn FOLLOW UP 07/10/2015 Patient Education: Patient Medication Summary Completed 07/10/2015 Appointment: Kristine Brambila WPtel: [address] [place], [place] [phone] [facility] 06/30/2015 Patient Education: Patient Medication Summary Completed 06/30/2015 Visit Plan: Recommended Vitamin E o il topically bid to area of scar. Currently taking Amoxicillin for sinusitis. Recommend Flonase nasal spray 06/27/2015 Visit Plan: Recommended Vitamin E o il topically bid to area of scar. Currently taking Amoxicillin for sinusitis. Recommend Flonase nasal spray 06/27/2015 Appointment: Meli Hatch WPtel: [address] [place], [place] [phone] ACUTE ILLNESS 06/27/2015 Patient Education: Patient Medication Summary Completed 06/27/2015 Appointment: Meli Hatch WPtel: [address] [place], [place] [phone] 06/22/15 appt confirmed and she will drea ng new insurance card ACUTE ILLNESS 06/26/2015 Appointment: Kristine Brambila WPtel: [address] [place], [place] [phone] [facility] 06/21/2015 Patient Education: Patient Medication Summary Completed 06/21/2015 Visit Plan: Add cymbalta at 30mg da loli Repeat PT/INR in 2weeks Recheck 1mo Awaiting ID to reschedule 06/08/2015 Visit Plan: Add cymbalta at 30mg da loli Repeat PT/INR in 2weeks Recheck 1mo Awaiting ID to reschedule 06/08/2015 Appointment: Kristine Brambila WPtel: [address] [place], [place] [phone] 06/07 lm ~sl 06/08 confirmed ~sl FOLLOW UP 06/08/2015 Patient Education: Patient Medication Summary Completed 06/08/2015 Patient Education: [facility] - Saving AutoInj - Cymbalta - 18-64 - Dynamic Portal ID Completed 06/08/2015 Patient Education: [facility] - Saving AutoInj - 18-64 - Dynamic Portal ID Completed 06/08/2015 Appointment: Kristine Brambila WPtel: [address] [place], [place] [phone] [facility] 05/31/2015 Patient Education: Patient Medication Summary Completed 05/31/2015 Visit Plan: Check PT/INR today Stop ped Lyrica due to fluid retention Has appt. scheduled at [facility] with hematology and infectious disease 06/08 Follow-up appt. in 2 weeks following appt. at . 05/24/2015 Visit Plan: Check PT/INR today Stop ped Lyrica due to fluid retention Has appt. scheduled at [facility] with hematology and infectious disease 06/08 Follow-up appt. in 2 weeks following appt. at . 05/24/2015 Appointment: Meli Hatch [facility]Ptel: [phone] [facility] NEW [facility] 05/24/2015 Patient Education: Patient Medication Summary Completed 05/24/2015 Patient Education: [facility] - Saving AutoInj - 18-64 - Dynamic Portal ID Completed 05/24/2015 Referral: Annamarie Melo WPtel: [facility] [address] [facility] Referral Initiated Instructions Comment . Rapid strep [...] with Dr Brambila for next week for residential management of pain . Check PT/INR today Stopped Lyrica due to fluid retention Has appt. scheduled at [facility] with hematology and infectious disease 06/08 Follow-up appt. in 2 weeks following appt. at . . Check PT/INR today Stopped Lyrica due to fluid retention Has appt. scheduled at [facility] with hematology and infectious disease 06/08 Follow-up appt. in 2 weeks following appt. at . . Culture collected Infection appears very mild Start with topical rx as above Good wound care reviewed Will call with culture results Pt to call if worsening and will add oral abx . Check CMP, CBC, TS H, PT/INR today Continue current meds Patient going for botox injections for migraines . Check CMP, CBC, TS H, PT/INR today Continue current meds Patient going for botox injections for migraines . Supportive care. Rest, Fluids, Tylenol/Motrin prn fever or bodyaches. Notify if worsening symptoms.New toothebrush in 5 days . Office dip positiv e for leuks [...] with Dr Brambila for next week for residential management of pain . Recommended Vitami n [...] going for botox injections for migraines . Supportive care. Rest, Fluids, Tylenol/Motrin prn [...]
--- OUTSIDE RECORDS SUMMARY | 2020-01-28 14:18 | XMS REPORT | CCD ---
Author Author Heydi Hatch APRN Organization [facility] Address [address] [place] [address] Phone Care Team Providers Care Electrical Research Engineer Name Role Phone Kristine Brambila D.O., PP Unavailable CCM Unavailable Summary Purpose Interface Exchange Insurance Providers Payer name Policy type / Coverage type Covered green party ID Effective Begin Date Effective End Date Blue Cross Blue Shield Blue Cross/Bl ue Shield [id number] 2018 Un known Family History Family History data not found Social History Social History Element Codes Description Effective Dates Tobacco history SNOMED CT: [id number] Current every day smoker 06/08/2015 Allergies, Adverse [...] ICD-9: 786.2 ICD-10: R05 Active 07/21/2017 Unknown group home (current) use of anticoagulants ICD-9: V58.61 [...] 02/10/2017 Unknown Pelvic and perineal pain ICD-9: [id number] ICD-10: R10.2 Active 02/10/2017 Unknown Cervicalgia ICD-9: [...] COUGH ICD-9: 786.2 ICD-10: R05 07/21/2017 Active group home (current) use of anticoagulants ICD-9: V58.61 [...] 02/10/2017 Active Pelvic and perineal pain ICD-9: [id number] ICD-10: R10.2 02/10/2017 Active Cervicalgia ICD-9: 723.1 [...] 10 mg-ac etaminophen 325 mg tablet RxNorm: 068887 1 Tablet(s) PO Q4-6H as needed for pain 02/01/2019 No Stop Date Active hydrocodone 10 mg-ac etaminophen 325 mg tablet RxNorm: 318143 1 Tablet(s) PO Q4-6H as needed for pain 02/01/2019 No Stop Date Active Diflucan 150 mg tablet RxNorm: 600740 Tablet(s) TABLET(S) 1 TABLET(S) PO QW NEEDED 01/28/2019 No Stop Date Active Vistaril 25 mg capsule RxNorm: 926071 1 Capsule(s) PO TID 01/27/2019 07/25/2019 Active ProAir HFA 90 mcg/ac tuation aerosol inhaler RxNorm: 446531 2 Puff(s) INH Q4H as needed 01/20/2019 No Stop Date Active Tessalon Perles 100 mg capsule RxNorm: 733078 1 Capsule(s) PO TID a s needed for cough 01/20/2019 No Stop Date Active doxycycline hyclate 100 mg capsule RxNorm: 7827690 1 Capsule(s) PO BID 01/20/2019 01/19/2019 In active doxycycline hyclate 100 mg capsule RxNorm: 7244462 1 Capsule(s) PO BID 01/20/2019 01/26/2019 In active Coumadin 5 mg tablet RxNorm: 958997 1 Tablet(s) PO QD (on Fri, , Fri, , Fri and Fri) 01/05/2019 06/09/2019 Active Generic For:COUMADIN 5MG TAB 05/25/2018 3:20:45 PM N O T I C E Last quantity doesn't match original quantity amoxicillin 500 mg c apsule RxNorm: 111969 1 Capsule(s) PO BID 01/05/2019 01/14/2019 Inactive amoxicillin 500 mg c apsule RxNorm: 411588 1 Capsule(s) PO BID 01/05/2019 01/04/2019 Inactive hydrocodone 10 mg-ac etaminophen 325 mg tablet RxNorm: 551004 1 Tablet(s) PO Q4-6H as needed for pain 01/01/2019 01/31/2019 Inactive cyclobenzaprine 10 m g tablet RxNorm: 059202 1 TABLET(S) PO QD NEEDED 12/23/2018 06/20/2019 Ac tive Coumadin 5 mg tablet RxNorm: 311869 Tablet(s) TAKE 1 TABLET(S) BY MOUTH FRI, FRI, FRI, Friday12/23/2018 01/04/2019 Inactive Generic For:COUMADIN 5MG TA B 05/25/2018 3:20:45 PM N O T I C E Last quantity doesn't match original quantity Diflucan 150 mg tablet RxNorm: 114221 Tablet(s) TABLET(S) 1 TABLET(S) PO QW NEEDED 12/23/2018 01/27/2019 Inactive Vitamin D2 50,000 un it capsule RxNorm: 5067299 1 Capsule(s) PO QW 12/04/2018 03/03/2019 Active Medrol (Juan Francisco) 4 mg ta blets in a dose pack RxNorm: 924287 Tablet(s) PO as direc liane 12/04/2018 12/03/2018 In active Vitamin D2 50,000 un it capsule RxNorm: 4134832 1 Capsule(s) PO QW 12/04/2018 12/03/2018 Inactive Medrol (Juan Francisco) 4 mg ta blets in a dose pack RxNorm: 678543 Tablet(s) PO as direc liane 12/04/2018 01/19/2019 In active Zithromax Z-Juan Francisco 250 mg tablet RxNorm: 186362 Tablet(s) PO take as directed 12/02/2018 No Stop Date Active Vistaril 25 mg capsule RxNorm: 212138 Capsule(s) 1 Capsule(s) PO TID as needed for anxiety 11/30/2018 02/27/2019 Active Coumadin 5 mg tablet RxNorm: 876190 Tablet(s) TAKE 1 TABLET(S) BY MOUTH MON, FRI, FRI, Friday11/30/2018 12/22/2018 Inactive Generic For:COUMADIN 5MG TA B 05/25/2018 3:20:45 PM N O T I C E Last quantity doesn't match original quantity Diflucan 150 mg tablet RxNorm: 279789 Tablet(s) TABLET(S) 1 TABLET(S) PO QW NEEDED 11/26/2018 12/22/2018 Inactive cholestyramine (with sugar) 4 gram oral powder RxNorm: 265042 1 UNIT DOSE PO QD 11/24/2018 02/21/2019 Ac tive acetazolamide 125 mg tablet RxNorm: 371774 1 Tablet(s) PO BID 11/24/2018 02/21/2019 Active cyclobenzaprine 10 m g tablet RxNorm: 320018 1 Tablet(s) PO QD as needed 11/17/2018 12/22/2018 In active hydrocodone 10 mg-ac etaminophen 325 mg tablet RxNorm: 028625 1 Tablet(s) PO Q4-6H as needed for pain 11/05/2018 01/31/2019 Inactive acetazolamide 125 mg tablet RxNorm: 801602 1 TABLET(S) PO BID 10/26/2018 11/23/2018 Inactive cholestyramine (with sugar) 4 gram oral powder RxNorm: 307849 1 UNIT DOSE PO QD 10/26/2018 11/23/2018 In active Coumadin 5 mg tablet RxNorm: 723639 TAKE 1 TABLET(S) BY MOUTH FRI, FRI, FRI, Friday10/26/2018 11/29/2018 Inactive Generic For:COUMADIN 5MG TAB 05/25/2018 3:20:45 PM N O T I C E Last quantity doesn't match original quantity Diflucan 150 mg tablet RxNorm: 201819 TABLET(S) 1 TABLET(S) PO QW NEEDED 10/26/2018 11/25/2018 In active hydrocodone 10 mg-ac etaminophen 325 mg tablet RxNorm: 879295 1 Tablet(s) PO Q4-6H as needed for pain 10/08/2018 11/04/2018 Inactive acetazolamide 125 mg tablet RxNorm: 477011 1 Tablet(s) PO BID 09/24/2018 10/23/2018 Inactive Coumadin 5 mg tablet RxNorm: 295654 TAKE 1 TABLET(S) BY MOUTH FRI, FRI, FRI, Friday09/24/2018 10/25/2018 Inactive Generic For:COUMADIN 5MG TAB 05/25/2018 3:20:45 PM N O T I C E Last quantity doesn't match original quantity Diflucan 150 mg tablet RxNorm: 128070 Tablet(s) 1 Tablet(s) PO QW as needed 09/24/2018 10/25/2018 In active cyclobenzaprine 10 m g tablet RxNorm: 046041 1 Tablet(s) PO QD as needed 09/24/2018 11/16/2018 In active Vistaril 25 mg capsule RxNorm: 099618 1 Capsule(s) PO TID as needed for anxiet y 09/24/2018 11/29/2018 In active cholestyramine (with sugar) 4 gram oral powder RxNorm: 189045 1 Unit Dose PO QD 09/24/2018 10/23/2018 In active Pyridium 200 mg tablet RxNorm: 7229942 1 Tablet(s) PO TID 09/10/2018 09/19/2018 Inactive Pyridium 200 mg tablet RxNorm: 5873592 1 Tablet(s) PO TID 09/10/2018 09/09/2018 Inactive hydrocodone 10 mg-ac etaminophen 325 mg tablet RxNorm: 391451 1 Tablet(s) PO Q4-6H as needed for pain 09/08/2018 10/07/2018 Inactive cefdinir 300 mg capsule RxNorm: 080211 1 Capsule(s) PO BID 09/08/2018 09/21/2018 Inactive hydrocodone 10 mg-ac etaminophen 325 mg tablet RxNorm: 866564 1 Tablet(s) PO Q4-6H as needed for pain 08/13/2018 09/07/2018 Inactive cyclobenzaprine 10 m g tablet RxNorm: 136873 1 Tablet(s) PO QD as needed 07/23/2018 09/23/2018 In active Diflucan 150 mg tablet RxNorm: 129840 Tablet(s) 1 Tablet(s) PO QW as needed 07/23/2018 09/23/2018 In active Ciprodex 0.3 %-0.1 % ear drops,suspension RxNorm: 361734 4 Drop(s) left otic ( ear) BID 07/23/2018 07/29/2018 Inactive hydrocodone 10 mg-ac etaminophen 325 mg tablet RxNorm: 172200 1 Tablet(s) PO Q4-6H as needed for pain 07/16/2018 08/12/2018 Inactive penicillin V potassi um 500 mg tablet RxNorm: 268922 1 Tablet(s) PO Q6H 07/08/2018 07/17/2018 In active cyclobenzaprine 10 m g tablet RxNorm: 297327 1 Tablet(s) PO QD as needed 06/22/2018 07/22/2018 In active Vistaril 25 mg capsule RxNorm: 224204 1 Capsule(s) PO TID as needed for anxiet y 06/22/2018 09/23/2018 In active cholestyramine (with sugar) 4 gram oral powder RxNorm: 822880 1 Unit Dose PO QD 06/22/2018 09/23/2018 In active hydrocodone 10 mg-ac etaminophen 325 mg tablet RxNorm: 761449 1 Tablet(s) PO Q4-6H as needed for pain 06/17/2018 07/15/2018 Inactive cefdinir 300 mg capsule RxNorm: 639159 1 Capsule(s) PO BID 06/02/2018 06/11/2018 Inactive Diflucan 150 mg tablet RxNorm: 314853 Tablet(s) 1 Tablet(s) PO QW as needed 06/02/2018 07/22/2018 In active Coumadin 5 mg tablet RxNorm: 131906 TAKE 1 TABLET(S) BY MOUTH FRI, FRI, FRI, Friday05/25/2018 07/15/2018 Inactive Generic For:COUMADIN 5MG TAB 05/25/2018 3:20:45 PM N O T I C E Last quantity doesn't match original quantity Imitrex 50 mg tablet RxNorm: 150074 Tablet(s) 1 Tablet(s) PO at headache. re peat in 2 hours if no relief. no more than 2 tabs per day 05/19/2018 No Stop Date Active cholestyramine (with sugar) 4 gram oral powder RxNorm: 429662 1 Unit Dose PO QD 05/19/2018 11/14/2018 In active Vistaril 25 mg capsule RxNorm: 293855 1 Capsule(s) PO TID 05/19/2018 11/14/2018 Inactive Coumadin 5 mg tablet RxNorm: 424361 Tablet(s) TAKE 1 TABLET(S) BY MOUTH FRI, FRI, FRI, Friday05/19/2018 05/24/2018 Inactive Generic For:COUMADIN 5MG TA B N O T I C E Last quantity doesn't match original quantity acetazolamide 125 mg tablet RxNorm: 698674 1 Tablet(s) PO BID 05/19/2018 09/23/2018 Inactive cyclobenzaprine 10 m g tablet RxNorm: 813090 1 Tablet(s) PO QD as needed 05/19/2018 11/17/2018 In active Coumadin 7.5 mg tablet RxNorm: 389878 1 Tablet(s) PO QD , Th, 05/19/2018 01/04/2019 In active ketorolac 10 mg tablet RxNorm: 111991 1 Tablet(s) PO QHS as needed 05/11/2018 No Stop Date Active promethazine 12.5 mg tablet RxNorm: 571439 1 Tablet(s) PO Q6H as needed 04/23/2018 04/22/2018 In active acetazolamide 125 mg tablet RxNorm: 488828 1 Tablet(s) PO BID 04/23/2018 05/18/2018 Inactive Coumadin 5 mg tablet RxNorm: 155478 TAKE 1 TABLET(S) BY MOUTH FRI, FRI, FRI, Friday04/23/2018 05/18/2018 Inactive Generic For:COUMADIN 5MG TAB N O T I C E Last quantity doesn't match original quantity Imitrex 50 mg tablet RxNorm: 269278 1 Tablet(s) PO at headache. repeat in 2 hours if no relief. no more than 2 tabs per day 04/23/2018 05/18/2018 Inactive cyclobenzaprine 10 m g tablet RxNorm: 222734 1 Tablet(s) PO QD as needed 04/23/2018 05/18/2018 In active clindamycin HCl 300 mg capsule RxNorm: 838606 1 Capsule(s) PO TID 04/02/2018 04/11/2018 Inactive hydrocodone 10 mg-ac etaminophen 325 mg tablet RxNorm: 400935 1 Tablet(s) PO Q4-6H as needed for pain 03/24/2018 06/16/2018 Inactive promethazine 12.5 mg tablet RxNorm: 150973 1 Tablet(s) PO Q6H 03/23/2018 04/23/2018 Inactive Imitrex 50 mg tablet RxNorm: 201758 1 Tablet(s) PO at headache. repeat in 2 hours if no relief. no more than 2 tabs per day 03/23/2018 04/22/2018 Inactive Diflucan 150 mg tablet RxNorm: 810996 1 Tablet(s) PO QW as needed 03/23/2018 06/01/2018 Inactive Coumadin 5 mg tablet RxNorm: 348811 Tablet(s) 1 Tablet(s) PO Mon, Wed, Fri, Sun 03/23/2018 04/22/2018 In active Imitrex 100 mg tablet RxNorm: 620530 Tablet(s) PO take one tablet at sign of headache and repeat in 2 hours if ineffective 03/16/2018 04/01/2018 Inactive ondansetron HCl 4 mg tablet RxNorm: 856690 1 Tablet(s) PO Q4H as needed for nausea 02/24/2018 04/01/2018 In active hydrocodone 10 mg-ac etaminophen 325 mg tablet RxNorm: 212506 1 Tablet(s) PO Q4-6H as needed for pain 02/24/2018 03/23/2018 Inactive Coumadin 5 mg tablet RxNorm: 848569 Tablet(s) 1 Tablet(s) PO Mon, Fri, Fri, Sun 02/20/2018 03/22/2018 In active promethazine 12.5 mg tablet RxNorm: 898913 1 Tablet(s) PO Q6H 02/20/2018 03/22/2018 Inactive Pepcid 40 mg tablet RxNorm: 692109 1 Tablet(s) PO BID for stomach 02/16/2018 03/17/2018 In active Flagyl 500 mg tablet RxNorm: 738215 1 Tablet(s) PO TID 02/16/2018 02/25/2018 Inactive Imitrex 50 mg tablet RxNorm: 152163 1 Tablet(s) PO at headache. repeat in 2 hours if no relief. no more than 2 tabs per day 01/27/2018 03/15/2018 Inactive Coumadin 5 mg tablet RxNorm: 575718 1 Tablet(s) PO Mon, Fri, Fri, Sun 01/27/2018 02/20/2018 In active amoxicillin 875 mg t ablet RxNorm: 836279 1 Tablet(s) PO BID 01/26/2018 02/04/2018 Inactive Imitrex 50 mg tablet RxNorm: 358230 1 Tablet(s) PO at headache. repeat in 2 hours if no relief. no more than 2 tabs per day 01/26/2018 03/22/2018 Inactive cyclobenzaprine 10 m g tablet RxNorm: 823037 1 Tablet(s) PO QD as needed 01/23/2018 03/23/2018 In active promethazine 12.5 mg tablet RxNorm: 981579 1 Tablet(s) PO Q6H 01/23/2018 02/19/2018 Inactive Diflucan 150 mg tablet RxNorm: 136921 1 Tablet(s) PO QW as needed 01/22/2018 03/22/2018 Inactive acetazolamide 125 mg tablet RxNorm: 077004 1 Tablet(s) PO BID 01/22/2018 04/21/2018 Inactive Imitrex 50 mg tablet RxNorm: 436535 1 Tablet(s) PO at headache. repeat in 2 hours if no relief. no more than 2 tabs per day 01/02/2018 01/25/2018 Inactive Ciprodex 0.3 %-0.1 % ear drops,suspension RxNorm: 064934 4 Drop(s) otic (ear) BID 01/01/2018 01/07/2018 In active Coumadin 7.5 mg tablet RxNorm: 039519 1 Tablet(s) PO QD , Th, 12/29/2017 05/18/2018 In active Coumadin 5 mg tablet RxNorm: 433131 1 Tablet(s) PO Mon, Wed, Fri, Sun 12/29/2017 01/26/2018 In active cyclobenzaprine 10 m g tablet RxNorm: 604326 1 Tablet(s) PO QD as needed 12/29/2017 01/22/2018 In active clindamycin HCl 300 mg capsule RxNorm: 870496 1 Capsule(s) PO TID 12/26/2017 12/25/2017 Inactive Imitrex 50 mg tablet RxNorm: 978219 1 Tablet(s) PO at headache. repeat in 2 hours if no relief. no more than 2 tabs per day 12/26/2017 01/01/2018 Inactive clindamycin HCl 300 mg capsule RxNorm: 858474 1 Capsule(s) PO TID 12/26/2017 01/04/2018 Inactive Zithromax Z-Juan Francisco 250 mg tablet RxNorm: 933914 Tablet(s) PO take as directed 12/25/2017 12/25/2017 In active promethazine 12.5 mg tablet RxNorm: 346172 1 Tablet(s) PO Q6H 12/25/2017 01/22/2018 Inactive clindamycin HCl 300 mg capsule RxNorm: 177568 1 Capsule(s) PO TID 12/11/2017 12/17/2017 Inactive Vistaril 25 mg capsule RxNorm: 526698 1 Capsule(s) PO TID as needed for anxiet y 12/04/2017 05/18/2018 In active cholestyramine (with sugar) 4 gram oral powder RxNorm: 708800 1 Unit Dose PO QD 12/04/2017 05/18/2018 In active Coumadin 7.5 mg tablet RxNorm: 072432 1 Tablet(s) PO QD 12/04/2017 12/28/2017 Inactive Coumadin 5 mg tablet RxNorm: 459870 1 Tablet(s) PO Friday through Friday12/04/2017 12/28/2017 In active hydrocodone 10 mg-ac etaminophen 325 mg tablet RxNorm: 394661 1 Tablet(s) PO Q4-6H as needed for pain 12/01/2017 02/23/2018 Inactive hydrocodone 10 mg-ac etaminophen 325 mg tablet RxNorm: 556620 1 Tablet(s) PO Q4-6H as needed for pain 11/03/2017 11/30/2017 Inactive cyclobenzaprine 10 m g tablet RxNorm: 616783 1 Tablet(s) PO QD as needed 10/30/2017 12/28/2017 In active cholestyramine (with sugar) 4 gram oral powder RxNorm: 655290 1 Unit Dose PO QD 10/30/2017 11/28/2017 In active amoxicillin 875 mg t ablet RxNorm: 222421 1 Tablet(s) PO BID 10/08/2017 10/07/2017 Inactive amoxicillin 875 mg t ablet RxNorm: 894806 1 Tablet(s) PO BID 10/08/2017 10/17/2017 Inactive penicillin V potassi um 500 mg tablet RxNorm: 149586 1 Tablet(s) PO BID 10/06/2017 10/07/2017 In active hydrocodone 10 mg-ac etaminophen 325 mg tablet RxNorm: 819684 1 Tablet(s) PO Q4-6H as needed for pain 10/06/2017 11/02/2017 Inactive hydrocodone 10 mg-ac etaminophen 325 mg tablet RxNorm: 950995 1 Tablet(s) PO Q4-6H as needed for pain 10/06/2017 12/31/2018 Inactive Vigamox 0.5 % eye drops RxNorm: 869202 1 Drop(s) ophthalmic (eye) TID ONLY ADMI NISTER IF INFECTION 10/03/2017 10/02/2017 Inactive Vigamox 0.5 % eye drops RxNorm: 866791 1 Drop(s) ophthalmic (eye) TID ONLY ADMI NISTER IF INFECTION 10/03/2017 10/09/2017 Inactive cholestyramine (with sugar) 4 gram oral powder RxNorm: 138734 1 Unit Dose PO QD 09/23/2017 10/30/2017 In active acetazolamide 125 mg tablet RxNorm: 824206 1 Tablet(s) PO BID 09/23/2017 12/21/2017 Inactive Coumadin 5 mg tablet RxNorm: 006757 1 Tablet(s) PO QD FRIDAY THROUGH Friday09/17/2017 11/04/2017 In active mupirocin 2 % topica l ointment RxNorm: 056388 1 Application TOP TID 09/10/2017 11/04/2017 Inactive hydrocodone 10 mg-ac etaminophen 325 mg tablet RxNorm: 526154 1 Tablet(s) PO Q4-6H as needed for pain 09/08/2017 10/05/2017 Inactive Questran 4 gram powd er for susp in a packet RxNorm: 421354 MIX ONE PACKET IN 6 O UNCES OF APPLE SAUCE OR OTHER SOFT FOOD AND EAT ONCE DAILY 09/02/2017 11/04/2017 Inactive Diflucan 150 mg tablet RxNorm: 283187 1 Tablet(s) PO QW as needed 08/14/2017 01/21/2018 Inactive hydrocodone 10 mg-ac etaminophen 325 mg tablet RxNorm: 467616 1 Tablet(s) PO Q4-6H as needed for pain 08/11/2017 09/07/2017 Inactive Tamiflu 75 mg capsule RxNorm: 619501 1 Capsule(s) PO QD 08/11/2017 08/10/2017 Inactive Tamiflu 75 mg capsule RxNorm: 063797 1 Capsule(s) PO QD 08/11/2017 08/20/2017 Inactive Coumadin 5 mg tablet RxNorm: 224126 1 Tablet(s) PO QD FRIDAY THROUGH Friday07/22/2017 09/16/2017 In active Coumadin 5 mg tablet RxNorm: 758134 TAKE ONE TABLET BY MOUTH ONCE DAILY THROUGH Friday07/16/2017 07/21/2017 Inactive cyclobenzaprine 10 m g tablet RxNorm: 263989 1 Tablet(s) PO QD as needed 07/15/2017 10/30/2017 In active hydrocodone 10 mg-ac etaminophen 325 mg tablet RxNorm: 383725 1 Tablet(s) PO Q4-6H as needed for pain 07/14/2017 08/10/2017 Inactive warfarin 5 mg tablet RxNorm: 986411 1 Tablet(s) PO Fri Sat Jamee nt is due for PT/INR 06/18/2017 07/15/2017 Inactive Questran Light 4 gra m powder for susp in a packet RxNorm: 8368912 1 PO QD 06/18/2017 11/04/2017 In active cyclobenzaprine 10 m g tablet RxNorm: 406613 1 Tablet(s) PO QD as needed 06/18/2017 07/14/2017 In active hydrocodone 10 mg-ac etaminophen 325 mg tablet RxNorm: 210194 1 Tablet(s) PO Q4-6H as needed for pain 06/18/2017 07/13/2017 Inactive Lunesta 1 mg tablet RxNorm: 213786 1 Tablet(s) PO QHS as needed 05/27/2017 06/25/2017 Inactive Zithromax Z-Juan Francisco 250 mg tablet RxNorm: 759855 1 Tablet(s) PO Take a s directed 05/27/2017 11/04/2017 In active ProAir HFA 90 mcg/ac tuation aerosol inhaler RxNorm: 329830 2 Puff(s) INH Q4H 05/27/2017 01/19/2019 In active ProAir HFA 90 mcg/ac tuation aerosol inhaler RxNorm: 452302 2 Puff(s) INH Q4H 05/27/2017 05/26/2017 In active promethazine 6.25 mg -codeine 10 mg/5 mL syrup RxNorm: 331662 5 Milliliter(s) PO Q4 H as needed 05/27/2017 11/04/2017 Inactive Diflucan 150 mg tablet RxNorm: 057519 1 Tablet(s) PO QW as needed 05/26/2017 05/25/2017 Inactive cyclobenzaprine 10 m g tablet RxNorm: 839558 1 Tablet(s) PO QD as needed 05/20/2017 06/18/2017 In active Lunesta 2 mg tablet RxNorm: 288027 1 Tablet(s) PO QHS 05/20/2017 05/27/2017 Inactive Zithromax Z-Juan Francisco 250 mg tablet RxNorm: 082091 Tablet(s) PO As Direc liane 05/12/2017 05/19/2017 In active cyclobenzaprine 5 mg tablet RxNorm: 614394 1 Tablet(s) PO QPM 03/28/2017 05/19/2017 Inactive Vistaril 25 mg capsule RxNorm: 100317 1 Capsule(s) PO TID as needed for anxiet y 03/28/2017 09/23/2017 In active Questran 4 gram powd er for susp in a packet RxNorm: 569770 1 Unit(s) PO QD 03/06/2017 06/18/2017 In active Cipro 500 mg tablet RxNorm: 085894 1 Tablet(s) PO BID 02/27/2017 02/26/2017 Inactive Pyridium 200 mg tablet RxNorm: 7922274 1 Tablet(s) PO TID for bladder spasms 02/27/2017 03/31/2017 In active Cipro 500 mg tablet RxNorm: 776501 1 Tablet(s) PO BID 02/27/2017 03/05/2017 Inactive Levsin 0.125 mg tablet RxNorm: 9821751 1 Tablet(s) PO QID as needed for spasm 02/25/2017 11/04/2017 In active tamsulosin 0.4 mg ca psule RxNorm: 548427 1 Capsule(s) PO QPM 02/25/2017 03/26/2017 Inactive tamsulosin 0.4 mg ca psule RxNorm: 511695 1 Capsule(s) PO QPM 02/25/2017 02/24/2017 Inactive Pyridium 100 mg tablet RxNorm: 0935202 1 Tablet(s) PO TID as needed 02/21/2017 03/31/2017 In active acetazolamide 125 mg tablet RxNorm: 356820 1 Tablet(s) PO BID 02/07/2017 09/23/2017 Inactive Questran 4 gram powd er for susp in a packet RxNorm: 057708 1 Unit(s) PO QD 02/06/2017 03/06/2017 In active cyclobenzaprine 5 mg tablet RxNorm: 166161 1 Tablet(s) PO QPM 02/05/2017 03/27/2017 Inactive BuSpar 5 mg tablet RxNorm: 690191 1 Tablet(s) PO BID 02/03/2017 03/31/2017 Inactive Diflucan 150 mg tablet RxNorm: 436485 1 Tablet(s) PO QW as needed 01/15/2017 05/26/2017 Inactive Valtrex 1 gram tablet RxNorm: 990427 1 Tablet(s) PO TID 01/13/2017 01/19/2017 Inactive Vistaril 25 mg capsule RxNorm: 144049 1 Capsule(s) PO TID as needed for anxiet y 01/13/2017 03/27/2017 In active hydrocodone 10 mg-ac etaminophen 325 mg tablet RxNorm: 133304 1 Tablet(s) PO Q4-6H as needed for pain 01/13/2017 06/17/2017 Inactive Questran 4 gram powd er for susp in a packet RxNorm: 564821 1 Unit(s) PO QD 01/13/2017 09/23/2017 In active acetazolamide 125 mg tablet RxNorm: 334274 1 Tablet(s) PO BID 01/13/2017 02/06/2017 Inactive methotrexate (PF) 20 mg/0.4 mL subcutaneous auto-injector RxNorm: 7235820 Milliliter(s) SQ QW 12/26/2016 01/05/2017 Inactive Compazine 10 mg tablet RxNorm: 685447 1 Tablet(s) PO TID as needed for nausea 12/18/2016 11/04/2017 In active hydrocodone 10 mg-ac etaminophen 325 mg tablet RxNorm: 450822 1 Tablet(s) PO Q4-6H as needed for pain 12/17/2016 01/12/2017 Inactive Questran 4 gram powd er for susp in a packet RxNorm: 638339 1 Unit(s) PO QD 12/17/2016 01/13/2017 In active cyclobenzaprine 5 mg tablet RxNorm: 955251 1 Tablet(s) PO QPM 12/17/2016 02/05/2017 Inactive Questran Light 4 gra m powder for susp in a packet RxNorm: 5686961 1 PO QD 11/29/2016 06/17/2017 In active Zofran ODT 4 mg disi ntegrating tablet RxNorm: 853787 1 Tablet(s) PO Q4H as needed for nausea 11/29/2016 12/17/2016 Inactive methotrexate sodium 2.5 mg tablet RxNorm: 214007 4 Tablet(s) PO week 1 then 5 tablets po week 2 then 6 tablets weekly 11/27/2016 12/25/2016 Inactive warfarin 7.5 mg tablet RxNorm: 537962 1 Tablet(s) PO three times weekly 11/14/2016 03/31/2017 In active warfarin 7.5 mg tablet RxNorm: 784009 1 Tablet(s) PO three times weekly 11/13/2016 11/13/2016 In active Diflucan 150 mg tablet RxNorm: 311055 1 Tablet(s) PO QW as needed 11/05/2016 01/14/2017 Inactive Vistaril 25 mg capsule RxNorm: 741487 1 Capsule(s) PO TID as needed for anxiet y 11/04/2016 11/03/2016 In active Coumadin 5 mg tablet RxNorm: 197472 1 Tablet(s) PO Friday through Friday11/04/2016 06/18/2017 In active acetazolamide 125 mg tablet RxNorm: 096652 1 Tablet(s) PO BID 11/04/2016 01/13/2017 Inactive sumatriptan 100 mg t ablet RxNorm: 905893 1 Tablet(s) PO at hea dache onset. May repeat in 2 hours if headache remains 11/04/2016 11/04/2017 Inactive Vistaril 25 mg capsule RxNorm: 793442 1 Capsule(s) PO TID as needed for anxiet y 11/04/2016 01/12/2017 In active hydrocodone 10 mg-ac etaminophen 325 mg tablet RxNorm: 140509 1 Tablet(s) PO Q4-6H as needed for pain 11/04/2016 12/16/2016 Inactive Coumadin 5 mg tablet RxNorm: 608438 TAKE ONE TABLET BY MOUTH ON SUN., MON., WED., AND FRI., AND TAKE ONE AND ONE-HALF TABLETS TUE., TH., AND 10/16/2016 10/25/2016 In active Coumadin 5 mg tablet RxNorm: 034852 1 Tablet(s) PO Friday through Friday10/15/2016 11/03/2016 In active hydrocodone 10 mg-ac etaminophen 325 mg tablet RxNorm: 603156 1 Tablet(s) PO Q4-6H as needed for pain 10/14/2016 11/03/2016 Inactive hydrocodone 10 mg-ac etaminophen 325 mg tablet RxNorm: 263014 1 Tablet(s) PO Q4-6H as needed for pain 09/20/2016 10/13/2016 Inactive warfarin 7.5 mg tablet RxNorm: 979680 1 Tablet(s) PO three times weekly 09/20/2016 11/12/2016 In active Diflucan 150 mg tablet RxNorm: 508871 1 Tablet(s) PO QW as needed 08/20/2016 11/04/2016 Inactive acetazolamide 125 mg tablet RxNorm: 238730 1 Tablet(s) PO BID 08/20/2016 11/04/2016 Inactive Diflucan 150 mg tablet RxNorm: 066821 1 Tablet(s) PO QW as needed 08/20/2016 08/19/2016 Inactive Vistaril 25 mg capsule RxNorm: 077585 Capsule(s) TAKE ONE CAPSULE BY MOUTH THR EE TIMES DAILY NEEDED FOR ANXIETY 08/19/2016 11/04/2016 Inactive hydrocodone 10 mg-ac etaminophen 325 mg tablet RxNorm: 772762 1 Tablet(s) PO Q4-6H as needed for pain 08/05/2016 09/19/2016 Inactive Diflucan 150 mg tablet RxNorm: 071989 1 Tablet(s) PO QW as needed 07/19/2016 08/19/2016 Inactive tizanidine 4 mg tablet RxNorm: 014800 1-2 Tablet(s) PO QHS as needed for muscl e spasm and sleep 06/03/2016 06/10/2016 Inactive Questran Light 4 gra m powder for susp in a packet RxNorm: 7045756 1 PO QD 05/14/2016 08/11/2016 In active Macrobid 100 mg capsule RxNorm: 823799 1 Capsule(s) PO BID 04/23/2016 05/02/2016 Inactive mupirocin 2 % topica l ointment RxNorm: 571110 Apply topically to af fected area 2-3 times daily 04/17/2016 07/07/2016 Inactive Vistaril 25 mg capsule RxNorm: 037726 TAKE ONE CAPSULE BY MOUTH THREE TIMES DA LOLI NEEDED FOR ANXIETY 04/17/2016 11/04/2016 Inactive Diflucan 150 mg tablet RxNorm: 002611 1 Tablet(s) PO QW as needed 04/16/2016 07/18/2016 Inactive cyclobenzaprine 5 mg tablet RxNorm: 228349 TAKE ONE TABLET BY [facility] ONCE DAILY IN THE EVENING 03/25/2016 12/17/2016 Inactive Pyridium 100 mg tablet RxNorm: 5621838 1 Tablet(s) PO TID as needed 03/20/2016 03/19/2016 In active Diflucan 150 mg tablet RxNorm: 309343 1 Tablet(s) PO QW as needed 03/20/2016 04/15/2016 Inactive Pyridium 100 mg tablet RxNorm: 7382227 1 Tablet(s) PO TID as needed 03/20/2016 08/26/2016 In active Diflucan 150 mg tablet RxNorm: 707479 1 Tablet(s) PO QW as needed 03/19/2016 03/19/2016 Inactive Coumadin 7.5 mg tablet RxNorm: 656150 1 Tablet(s) PO QD 03/14/2016 05/12/2016 Inactive acetazolamide 125 mg tablet RxNorm: 785859 1 Tablet(s) PO BID 02/28/2016 08/20/2016 Inactive Coumadin 5 mg tablet RxNorm: 990179 1 TABLET(S) PO QD THREE TIMES A WEEK AND 1 1/2 TAB (7.5MG) FOUR TIMES A WEEK 02/28/2016 03/13/2016 Inactive Questran Light 4 gra m powder for susp in a packet RxNorm: 1783222 1 PO QD 02/13/2016 05/12/2016 In active Diflucan 150 mg tablet RxNorm: 749015 1 Tablet(s) PO QW as needed 01/19/2016 03/11/2016 Inactive Diflucan 150 mg tablet RxNorm: 685016 1 Tablet(s) PO QW as needed 01/18/2016 01/18/2016 Inactive promethazine 25 mg t ablet RxNorm: 782642 1 Tablet(s) PO Q4H as needed for nausea 12/05/2015 12/17/2016 In active Imitrex 100 mg tablet RxNorm: 457323 1 Tablet(s) PO at headache onset and may repeat in 2 hours if needed 12/05/2015 03/31/2017 Inactive Diflucan 150 mg tablet RxNorm: 006710 1 Tablet(s) PO QW as needed 11/24/2015 01/17/2016 Inactive Diflucan 150 mg tablet RxNorm: 467200 1 Tablet(s) PO QW as needed 11/21/2015 11/23/2015 Inactive Coumadin 5 mg tablet RxNorm: 616053 1 Tablet(s) PO QD three times a week and 1 1/2 tab (7.5mg) four times a week 11/13/2015 02/01/2016 Inactive Questran Light 4 gra m powder for susp in a packet RxNorm: 741917 1 PO QD 11/13/2015 02/10/2016 In active acetazolamide 125 mg tablet RxNorm: 702273 1 Tablet(s) PO BID 11/13/2015 02/10/2016 Inactive amoxicillin 875 mg t ablet RxNorm: 762277 1 Tablet(s) PO BID 11/09/2015 11/18/2015 Inactive Coumadin 7.5 mg tablet RxNorm: 862236 1 Tablet(s) PO on and 10/26/2015 10/25/2015 In active Coumadin 7.5 mg tablet RxNorm: 774003 1 Tablet(s) PO on and 10/26/2015 11/12/2015 In active Coumadin 5 mg tablet RxNorm: 917107 1 Tablet(s) PO Friday, Friday, Friday and Friday. 1.5 tablets Friday, and Friday. 10/26/2015 10/25/2015 Inactive Coumadin 5 mg tablet RxNorm: 999061 1 Tablet(s) PO Friday, Friday, Friday , and Friday. Take 1 1/2 on Friday, and Friday10/26/2015 11/12/2015 Inactive Coumadin 7.5 mg tablet RxNorm: 405464 1 Tablet(s) PO on and 10/26/2015 10/26/2015 In active Coumadin 5 mg tablet RxNorm: 614470 1 Tablet(s) PO Friday, Friday, Friday and Friday. 1.5 tablets Friday, and Friday. 10/26/2015 02/14/2016 Inactive Vistaril 25 mg capsule RxNorm: 503126 1 Capsule(s) PO TID as needed for anxiet y 10/10/2015 04/06/2016 In active cyclobenzaprine 5 mg tablet RxNorm: 541302 1 Tablet(s) PO QPM 10/10/2015 03/24/2016 Inactive Vistaril 25 mg capsule RxNorm: 151853 1 Capsule(s) PO TID as needed for anxiet y 10/10/2015 10/09/2015 In active cyclobenzaprine 5 mg tablet RxNorm: 154997 1 Tablet(s) PO QPM 10/10/2015 10/09/2015 Inactive Coumadin 5 mg tablet RxNorm: 647413 1 Tablet(s) PO Friday, Friday, Friday and Friday. 1.5 tablets Friday, and Friday. 10/02/2015 10/01/2015 Inactive Coumadin 5 mg tablet RxNorm: 805637 1 Tablet(s) PO Friday, Friday, Friday and Friday. 1.5 tablets Friday, and Friday. 10/02/2015 10/25/2015 Inactive amoxicillin 500 mg t ablet RxNorm: 612311 1 Tablet(s) PO TID 10/02/2015 10/11/2015 Inactive hydrocodone 10 mg-ac etaminophen 325 mg tablet RxNorm: 272827 1 Tablet(s) PO Q4-6H as needed for pain 10/02/2015 08/04/2016 Inactive Diflucan 150 mg tablet RxNorm: 598861 1 Tablet(s) PO QW as needed 10/02/2015 10/01/2015 Inactive amoxicillin 500 mg t ablet RxNorm: 793906 1 Tablet(s) PO TID 10/02/2015 10/01/2015 Inactive Diflucan 150 mg tablet RxNorm: 018482 1 Tablet(s) PO QW as needed 10/02/2015 10/09/2015 Inactive Coumadin 5 mg tablet RxNorm: 363710 1 Tablet(s) PO Mon.,Wed.,Fri., Sat. and Sun. 09/14/2015 10/01/2015 Inactive acetazolamide 125 mg tablet RxNorm: 910606 1 Tablet(s) PO BID 09/14/2015 11/12/2015 Inactive hydrocodone 10 mg-ac etaminophen 325 mg tablet RxNorm: 653590 1 Tablet(s) PO Q4-6H as needed for pain 09/01/2015 10/01/2015 Inactive Vistaril 25 mg capsule RxNorm: 280241 1 Capsule(s) PO TID as needed for anxiet y 08/24/2015 09/22/2015 In active baclofen 10 mg tablet RxNorm: 140697 1/2 Tablet(s) PO QAM and 1 tablet at bed time 07/27/2015 10/09/2015 Inactive Vistaril 25 mg capsule RxNorm: 399821 1 Capsule(s) PO BID 07/24/2015 08/22/2015 Inactive Savella 12.5 mg (5)- 25 mg(8)-50mg(42) tablets in a dose pack RxNorm: 410521 Tablet(s) PO as directed 07/10/2015 07/26/2015 Inactive hydrocodone 10 mg-ac etaminophen 325 mg tablet RxNorm: 726851 1 Tablet(s) PO Q6H as needed for pain 06/29/2015 08/10/2015 Inactive Coumadin 7.5 mg tablet RxNorm: 690564 1 Tablet(s) PO on and 06/21/2015 10/25/2015 In active Vistaril 25 mg capsule RxNorm: 854705 1 Capsule(s) PO BID 06/20/2015 07/24/2015 Inactive Cymbalta 30 mg capsu le,delayed release RxNorm: 268919 1 Capsule(s) PO QD 06/08/2015 07/09/2015 In active Coumadin 5 mg tablet RxNorm: 853665 1 Tablet(s) PO Mon.,Wed.,Fri., Sat. and Sun. 06/08/2015 07/07/2015 Inactive Coumadin 5 mg tablet RxNorm: 490354 1 Tablet(s) PO Mon.,Wed.,Fri., Sat. and Sun. 05/24/2015 06/07/2015 Inactive Coumadin 7.5 mg tablet RxNorm: 648759 1 Tablet(s) PO on and 05/24/2015 06/20/2015 In active Coumadin 7.5 mg tablet RxNorm: 314431 1 Tablet(s) PO on Friday No Start Date Active Vitamin B12 1000mcg Tablet RxNorm: 1/2 Tablet(s) PO QD No Start Date Active Bystolic 10 mg tablet RxNorm: 473766 3 Tablet(s) PO QAM No Start Date Active Vitamin D3 5,000 uni t tablet RxNorm: 455039 1 Tablet(s) PO QD No Start Date Active Bystolic 5 mg tablet RxNorm: 511816 1 Tablet(s) PO NOON No Start Date Active sumatriptan 100 mg t ablet RxNorm: 012180 1 Tablet(s) PO at hea dache onset. May repeat in 2 hours if headache remains No Start Date 11/03/2016 Inactive warfarin 7.5 mg tablet RxNorm: 991538 1 Tablet(s) PO three times weekly No Start Date 09/19/2016 Inactive ondansetron HCl 4 mg tablet RxNorm: 322700 1 Tablet(s) PO Q4H as needed for nausea No Start Date 02/23/2018 Inactive Imitrex 100 mg tablet RxNorm: 699160 1 Tablet(s) PO at headache onset and may repeat in 2 hours if needed No Start Date 12/04/2015 Inactive Vitamin B12 1000mcg Tablet RxNorm: 1/2 Tablet(s) PO on , T hurs, Sat and Sun and 1 tab all other days No Start Date 04/01/2018 Inactive baclofen 10 mg tablet RxNorm: 074268 1/2 Tablet(s) PO QAM and 1 tablet at bed time No Start Date 07/26/2015 Inactive tizanidine 4 mg tablet RxNorm: 005503 1-2 Tablet(s) PO QHS as needed for muscl e spasm and sleep No Start Date 06/02/2016 Inactive Flexeril 5 mg tablet RxNorm: 032186 1 Tablet(s) PO QD No Start Date 10/09/2015 Inactive methotrexate (PF) 20 mg/0.4 mL subcutaneous auto-injector RxNorm: 2835076 SQ QW No Start Date 12/25/2016 Inactive Bystolic 5 mg tablet RxNorm: 393388 1 Tablet(s) PO as needed No Start Date 03/15/2018 Inactive Questran Light 4 gra m powder for susp in a packet RxNorm: 808950 1 PO QD No Start Date 11/12/2015 Inactive Bystolic 10 mg tablet RxNorm: 904223 1 Tablet(s) PO QAM No Start Date 11/04/2017 Inactive warfarin 5 mg tablet RxNorm: 712590 1 Tablet(s) PO Fri Sat Sun No Start Date 06/17/2017 Inactive hydrocodone 10 mg-ac etaminophen 325 mg tablet RxNorm: 897472 1 Tablet(s) PO 4-6hou rs as needed for pain No Start Date 08/31/2015 Inactive cyclobenzaprine 5 mg tablet RxNorm: 129339 1 Tablet(s) PO QPM No Start Date 12/16/2016 Inactive Lovenox 100 mg/mL carmona bcutaneous syringe RxNorm: 306231 1 Milliliter(s) SQ QD No Start Date 06/07/2015 Inactive Levsin 0.125 mg tablet RxNorm: 8764392 1 Tablet(s) PO QID as needed for spasm No Start Date 02/24/2017 Inactive Savella 12.5 mg (5)- 25 mg(8)-50mg(42) tablets in a dose pack RxNorm: 518530 Tablet(s) PO as directed No Start Date 07/09/2015 Inactive Coumadin 10 mg tablet RxNorm: 022297 1 Tablet(s) PO QD No Start Date 2015 Inactive tramadol 50 mg tablet RxNorm: 491890 1 Tablet(s) PO TID as needed for pain No Start Date 03/31/2017 Inactive BuSpar 5 mg tablet RxNorm: 444691 1 Tablet(s) PO BID No Start Date 02/02/2017 Inactive Vistaril 25 mg capsule RxNorm: 373876 1 Capsule(s) PO BID No Start Date 06/19/2015 Inactive Tessalon Perles 100 mg capsule RxNorm: 554971 1 Capsule(s) PO TID a s needed for cough No Start Date 01/19/2019 Inactive promethazine 12.5 mg tablet RxNorm: 195907 1 Tablet(s) PO Q6H as needed No Start Date 04/22/2018 Inactive Coumadin 7.5 mg tablet RxNorm: 005511 1 Tablet(s) PO Fri and Friday No Start Date 03/13/2016 Inactive Imitrex 50 mg tablet RxNorm: 115745 1 Tablet(s) PO at headache. repeat in 2 hours if no relief. no more than 2 tabs per day No Start Date 12/25/2017 Inactive acetazolamide 125 mg tablet RxNorm: 188584 1 Tablet(s) PO BID No Start Date 09/13/2015 Inactive methotrexate (PF) 12 .5 mg/0.4 mL subcutaneous auto-injector RxNorm: 5220656 1 Milliliter(s) SQ QW No Start Date 03/31/2017 Inactive Bystolic 10 mg tablet RxNorm: 676839 1 Tablet(s) PO QAM No Start Date 03/25/2018 Inactive Zithromax Z-Juan Francisco 250 mg tablet RxNorm: 188475 Tablet(s) PO As Direc liane No Start Date 05/11/2017 Inactive Bystolic 20 mg tablet RxNorm: 152421 1 Tablet(s) PO QD No Start Date 03/15/2018 Inactive Questran 4 gram powd er for susp in a packet RxNorm: 296494 1 Unit(s) PO QD No Start Date 12/16/2016 Inactive Vitamin D3 1,000 uni t tablet RxNorm: 256500 1 Tablet(s) PO QD No Start Date 04/01/2018 Inactive Coumadin 5 mg tablet RxNorm: 371569 1 Tablet(s) PO Friday through Friday No Start Date 03/13/2016 Inactive warfarin 5 mg tablet RxNorm: 207707 1 Tablet(s) PO four days per week No Start Date 04/01/2018 Inactive ProAir HFA 90 mcg/ac tuation aerosol inhaler RxNorm: 749164 2 Puff(s) INH Q4H as needed No Start Date 01/19/2019 Inactive Bystolic 5 mg tablet RxNorm: 158317 1 Tablet(s) PO QHS No Start Date 03/25/2018 Inactive Compazine 10 mg tablet RxNorm: 545334 1 Tablet(s) PO TID as needed for nausea No Start Date 12/17/2016 Inactive Pyridium 200 mg tablet RxNorm: 8384932 1 Tablet(s) PO TID for bladder spasms No Start Date 02/26/2017 Inactive hydrocodone 10 mg-ac etaminophen 325 mg tablet RxNorm: 660263 1 Tablet(s) PO as nee ded No Start Date 06/28/2015 Inactive warfarin 7.5 mg tablet RxNorm: 154906 1 Tablet(s) PO on Friday and No Start Date 04/01/2018 Inactive promethazine 25 mg t ablet RxNorm: 059091 1 Tablet(s) PO Q4H as needed for nausea No Start Date 12/04/2015 Inactive Lovenox 30 mg/0.3 mL subcutaneous syringe RxNorm: 796481 1 Milliliter(s) SQ QD No Start Date [...] 01/19/2019 COUGH ICD-10: R05 ICD-9: 786.2 01/19/2019 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 ICD-10: Z79.01 ICD-9: [...] and perineal pain ICD-10: R10 .2 ICD-9: [id number] 02/10/2017 Hematuria, unspecified ICD-10: R31.9 ICD-9: 599.70 [...] Code Result Date ANTI STREPTOLYSIN O TITER(ASO) 78793 ASO Titr 110 IU/mL 9 MYCOPLASMA ANTIBODY, IFA [id number] Mycoplas Ab IgG 1:64 01/20/2019 MYCOPLASMA ANTIBODY, IFA [id number] Mycoplas Ab IgM <1:10 01/20/2019 MYCOPLASMA ANTIBODY, IFA 73868X7 Mycoplasma Intp See Below 01/20/2019 LEGIONELLA 7597241 Legio adore Ab <1:128 01/20/2019 HEPATIC FUNCTION PANEL A 94916 Total Protein 6.3 g/dL 01/19/2019 HEPATIC FUNCTION PANEL A 60781 AST 16 U/L 01/19/2019 HEPATIC FUNCTION PANEL A 86018 ALK PHOS 52 U/L 01/19/2019 HEPATIC FUNCTION PANEL A 63586 Bili Total 0.2 mg/dL 01/19/2019 HEPATIC FUNCTION PANEL A 21707 ALT 20 U/L 01/19/2019 HEPATIC FUNCTION PANEL A 57379 ALBUMIN 4.3 g/dL 01/19/2019 HEPATIC FUNCTION PANEL A 43646 Bili Direct 0.1 mg/dL 01/19/2019 PT 6142155 PT 27.5 Seconds 01/19/2019 PT 9784058 INR 2.6 01/19/2019 COMPLETE BLOOD COUNT 9350832 WBC 11.1 10e9/L 01/19/2019 COMPLETE BLOOD COUNT 8158224 RBC 4.14 10e12/L 9 COMPLETE BLOOD COUNT 6309059 HEMOGLOBIN 13.9 g/dL 01/19/2019 COMPLETE BLOOD COUNT 3680148 HEMATOCRIT 40.7 % 01/19/2019 COMPLETE BLOOD COUNT 0745435 MCV 98.3 fL 01/19/2019 COMPLETE BLOOD COUNT 0200942 MCH 33.6 pg 01/19/2019 COMPLETE BLOOD COUNT 9767846 MCHC 34.2 g/dL 01/19/2019 COMPLETE BLOOD COUNT 9766301 PLATELET COUNT 334 10e9/L 01/19/2019 COMPLETE BLOOD COUNT 0953496 Mean Plt Volume 8.9 fL 01/19/2019 COMPLETE BLOOD COUNT 3453276 Neut Auto 60.2 % 01/19/2019 COMPLETE BLOOD COUNT 1455849 Lymph Auto 32.5 % 01/19/2019 COMPLETE BLOOD COUNT 4439321 Dale Auto 6.1 % 01/19/2019 COMPLETE BLOOD COUNT 9029079 RDW 12.5 % 01/19/2019 COMPLETE BLOOD COUNT 7563190 Eos Auto 1.0 % 01/19/2019 COMPLETE BLOOD COUNT 3805669 Baso Auto 0.2 % 01/19/2019 COMPLETE BLOOD COUNT 4456021 Neutrophil Abs 6.68 10e9/L 01/19/2019 COMPLETE BLOOD COUNT 1683767 Lymphocyte Abs 3.61 10e9/L 01/19/2019 COMPLETE BLOOD COUNT 7494551 Monocyte Abs 0.68 10e9/L 01/19/2019 COMPLETE BLOOD COUNT 5249496 Eosinophil Abs 0.11 10e9/L 01/19/2019 COMPLETE BLOOD COUNT 5938532 RDW-SD 43.4 fL 01/19/2019 COMPLETE BLOOD COUNT 0924341 Basophil Abs 0.02 10e9/L 01/19/2019 COMPLETE BLOOD COUNT 4978092 WBC 7.4 10e9/L 12/18/2018 COMPLETE BLOOD COUNT 7527967 RBC 4.32 10e12/L 9 COMPLETE BLOOD COUNT 2495401 HEMOGLOBIN 14.2 g/dL 12/18/2018 COMPLETE BLOOD COUNT 4428623 HEMATOCRIT 42.0 % 12/18/2018 COMPLETE BLOOD COUNT 8737785 MCV 97.2 fL 12/18/2018 COMPLETE BLOOD COUNT 2844386 MCH 32.9 pg 12/18/2018 COMPLETE BLOOD COUNT 6054257 MCHC 33.8 g/dL 12/18/2018 COMPLETE BLOOD COUNT 7770627 PLATELET COUNT 273 10e9/L 12/18/2018 COMPLETE BLOOD COUNT 4759853 Mean Plt Volume 9.4 fL 12/18/2018 COMPLETE BLOOD COUNT 3558816 Neut Auto 57.7 % 12/18/2018 COMPLETE BLOOD COUNT 0491804 Lymph Auto 34.8 % 12/18/2018 COMPLETE BLOOD COUNT 7906278 Dale Auto 6.4 % 12/18/2018 COMPLETE BLOOD COUNT 2117457 RDW 12.6 % 12/18/2018 COMPLETE BLOOD COUNT 6048856 Eos Auto 0.8 % 12/18/2018 COMPLETE BLOOD COUNT 1179170 Baso Auto 0.3 % 12/18/2018 COMPLETE BLOOD COUNT 2278580 Neutrophil Abs 4.27 10e9/L 12/18/2018 COMPLETE BLOOD COUNT 5333935 Lymphocyte Abs 2.58 10e9/L 12/18/2018 COMPLETE BLOOD COUNT 5557009 Monocyte Abs 0.47 10e9/L 12/18/2018 COMPLETE BLOOD COUNT 3513414 Eosinophil Abs 0.06 10e9/L 12/18/2018 COMPLETE BLOOD COUNT 6653416 RDW-SD 43.8 fL 12/18/2018 COMPLETE BLOOD COUNT 0053727 Basophil Abs 0.02 10e9/L 12/18/2018 GFR CALC 3516633 GFR Non Afr Amr >60 mL/min 12/18/2018 GFR CALC 6255667 GFR Afr Amr >60 mL/min 12/18/2018 COMPREHENSIVE METABOLIC 20652 AST 33 U/L 12/18/2018 COMPREHENSIVE METABOLIC 40291 ALT 60 U/L 12/18/2018 COMPREHENSIVE METABOLIC 03089 BUN 9 mg/dL 12/18/2018 COMPREHENSIVE METABOLIC 35687 ALBUMIN 4.3 g/dL 12/18/2018 COMPREHENSIVE METABOLIC 11127 CHLORIDE 104 mmol/L 12/18/2018 COMPREHENSIVE METABOLIC 19165 Bili Total 0.3 mg/dL 12/18/2018 COMPREHENSIVE METABOLIC 26394 ALK PHOS 63 U/L 12/18/2018 COMPREHENSIVE METABOLIC 79942 SODIUM 139 mmol/L 12/18/2018 COMPREHENSIVE METABOLIC 13553 CREATININE 0.55 mg/dL 12/18/2018 COMPREHENSIVE METABOLIC 57670 CALCIUM 9.0 mg/dL 12/18/2018 COMPREHENSIVE METABOLIC 55722 POTASSIUM 3.9 mmol/L 12/18/2018 COMPREHENSIVE METABOLIC 36949 Total Protein 6.4 g/dL 12/18/2018 COMPREHENSIVE METABOLIC 27123 Glucose 83 mg/dL 12/18/2018 COMPREHENSIVE METABOLIC 48867 Bicarbonate 27 mmol/L 12/18/2018 COMPREHENSIVE METABOLIC 18660 AGAP 8 mmol/L 12/18/2018 ERYTHROCYTE SEDIMENTATION RATE 95086 Sed Rate 17 mm/hr 12/04/2018 MEAN GLUC 7227399 Calc M zach Gluc 108 mg/dL 12/03/2018 VITAMIN B 12 74286 VITAM IN B12 329 pg/mL 12/03/2018 COMPREHENSIVE METABOLIC 36491 AST 18 U/L 12/03/2018 COMPREHENSIVE METABOLIC 78163 ALT 21 U/L 12/03/2018 COMPREHENSIVE METABOLIC 11935 BUN 11 mg/dL 12/03/2018 COMPREHENSIVE METABOLIC 49368 ALBUMIN 4.5 g/dL 12/03/2018 COMPREHENSIVE METABOLIC 70973 CHLORIDE 106 mmol/L 12/03/2018 COMPREHENSIVE METABOLIC 84782 Bili Total 0.4 mg/dL 12/03/2018 COMPREHENSIVE METABOLIC 97190 ALK PHOS 49 U/L 12/03/2018 COMPREHENSIVE METABOLIC 95176 SODIUM 138 mmol/L 12/03/2018 COMPREHENSIVE METABOLIC 58565 CREATININE 0.61 mg/dL 12/03/2018 COMPREHENSIVE METABOLIC 12347 CALCIUM 9.2 mg/dL 12/03/2018 COMPREHENSIVE METABOLIC 00531 POTASSIUM 3.7 mmol/L 12/03/2018 COMPREHENSIVE METABOLIC 51332 Total Protein 6.8 g/dL 12/03/2018 COMPREHENSIVE METABOLIC 29842 Glucose 94 mg/dL 12/03/2018 COMPREHENSIVE METABOLIC 55315 Bicarbonate 25 mmol/L 12/03/2018 COMPREHENSIVE METABOLIC 22563 AGAP 7 mmol/L 12/03/2018 FREE T4 69474 T4 Free 0.96 ng/dL 12/03/2018 ASSAY TRIIODOTHYRONINE (T3) 37791 T3 Total 1.02 ng/mL 12/03/2018 GFR CALC 2389279 GFR Non Afr Amr >60 mL/min 12/03/2018 GFR CALC 3060486 GFR Afr Amr >60 mL/min 12/03/2018 GLYCOSYLATED HEMOGLOBIN TEST 67627 Hgb A1c 76467-0 5.4 % 12/03/2018 VITAMIN D TOTAL (25 HYDROXY) 07885 Vitamin D 25 OH 11.1 ng/mL 12/03/2018 IRON 40977 Iron 106 ug/dL 12/03/2018 THYROID STIMULATING HORMONE 45600 TSH 0.978 uIU/mL 9 COMPLETE BLOOD COUNT 0112149 WBC 9.4 10e9/L 12/03/2018 COMPLETE BLOOD COUNT 1692512 RBC 4.41 10e12/L 9 COMPLETE BLOOD COUNT 3101035 HEMOGLOBIN 14.5 g/dL 12/03/2018 COMPLETE BLOOD COUNT 8110455 HEMATOCRIT 43.0 % 12/03/2018 COMPLETE BLOOD COUNT 3073240 MCV 97.5 fL 12/03/2018 COMPLETE BLOOD COUNT 3998037 MCH 32.9 pg 12/03/2018 COMPLETE BLOOD COUNT 8501915 MCHC 33.7 g/dL 12/03/2018 COMPLETE BLOOD COUNT 0142974 PLATELET COUNT 336 10e9/L 12/03/2018 COMPLETE BLOOD COUNT 6500495 Mean Plt Volume 9.1 fL 12/03/2018 COMPLETE BLOOD COUNT 3481674 Neut Auto 56.4 % 12/03/2018 COMPLETE BLOOD COUNT 5389475 Lymph Auto 35.6 % 12/03/2018 COMPLETE BLOOD COUNT 0211452 Dale Auto 6.8 % 12/03/2018 COMPLETE BLOOD COUNT 8900612 RDW 12.6 % 12/03/2018 COMPLETE BLOOD COUNT 2060990 Eos Auto 1.0 % 12/03/2018 COMPLETE BLOOD COUNT 5455730 Baso Auto 0.2 % 12/03/2018 COMPLETE BLOOD COUNT 0819852 Neutrophil Abs 5.30 10e9/L 12/03/2018 COMPLETE BLOOD COUNT 0641648 Lymphocyte Abs 3.35 10e9/L 12/03/2018 COMPLETE BLOOD COUNT 4945909 Monocyte Abs 0.64 10e9/L 12/03/2018 COMPLETE BLOOD COUNT 6059825 Eosinophil Abs 0.09 10e9/L 12/03/2018 COMPLETE BLOOD COUNT 5031298 RDW-SD 44.3 fL 12/03/2018 COMPLETE BLOOD COUNT 4474024 Basophil Abs 0.02 10e9/L 12/03/2018 FERRITIN 81486 FERRITIN 87.8 ng/mL 12/03/2018 PT 1214858 PT 23.1 Seconds 11/30/2018 PT 9293355 INR 2.0 11/30/2018 ANTI STREPTOLYSIN O TITER(ASO) 42957 ASO Titr 117 IU/mL 9 COMPLETE BLOOD COUNT 3914819 WBC 10.7 10e9/L 11/11/2018 COMPLETE BLOOD COUNT 4697162 RBC 4.42 10e12/L 9 COMPLETE BLOOD COUNT 2296039 HEMOGLOBIN 14.5 g/dL 11/11/2018 COMPLETE BLOOD COUNT 7678808 HEMATOCRIT 43.1 % 11/11/2018 COMPLETE BLOOD COUNT 9038801 MCV 97.5 fL 11/11/2018 COMPLETE BLOOD COUNT 0714367 MCH 32.8 pg 11/11/2018 COMPLETE BLOOD COUNT 8705425 MCHC 33.6 g/dL 11/11/2018 COMPLETE BLOOD COUNT 8752950 PLATELET COUNT 324 10e9/L 11/11/2018 COMPLETE BLOOD COUNT 1960150 Mean Plt Volume 9.2 fL 11/11/2018 COMPLETE BLOOD COUNT 8746995 Neut Auto 62.3 % 11/11/2018 COMPLETE BLOOD COUNT 1138209 Lymph Auto 30.8 % 11/11/2018 COMPLETE BLOOD COUNT 0007642 Dale Auto 6.1 % 11/11/2018 COMPLETE BLOOD COUNT 1615799 RDW 12.7 % 11/11/2018 COMPLETE BLOOD COUNT 6995455 Eos Auto 0.7 % 11/11/2018 COMPLETE BLOOD COUNT 9332520 Baso Auto 0.1 % 11/11/2018 COMPLETE BLOOD COUNT 4163932 Neutrophil Abs 6.67 10e9/L 11/11/2018 COMPLETE BLOOD COUNT 3947684 Lymphocyte Abs 3.30 10e9/L 11/11/2018 COMPLETE BLOOD COUNT 3482620 Monocyte Abs 0.65 10e9/L 11/11/2018 COMPLETE BLOOD COUNT 5938580 Eosinophil Abs 0.07 10e9/L 11/11/2018 COMPLETE BLOOD COUNT 5979142 RDW-SD 44.3 fL 11/11/2018 COMPLETE BLOOD COUNT 7970393 Basophil Abs 0.01 10e9/L 11/11/2018 PT 9548870 PT 23.4 Seconds 10/27/2018 PT 6257562 INR 2.0 10/27/2018 COMPLETE BLOOD COUNT 4483219 WBC 8.1 10e9/L 09/25/2018 COMPLETE BLOOD COUNT 5716736 RBC 4.37 10e12/L 9 COMPLETE BLOOD COUNT 0536293 HEMOGLOBIN 14.5 g/dL 09/25/2018 COMPLETE BLOOD COUNT 9557174 HEMATOCRIT 42.1 % 09/25/2018 COMPLETE BLOOD COUNT 1301919 MCV 96.3 fL 09/25/2018 COMPLETE BLOOD COUNT 5835204 MCH 33.2 pg 09/25/2018 COMPLETE BLOOD COUNT 7813914 MCHC 34.4 g/dL 09/25/2018 COMPLETE BLOOD COUNT 2733495 PLATELET COUNT 313 10e9/L 09/25/2018 COMPLETE BLOOD COUNT 0688405 Mean Plt Volume 9.2 fL 09/25/2018 COMPLETE BLOOD COUNT 1895066 Neut Auto 57.4 % 09/25/2018 COMPLETE BLOOD COUNT 4531146 Lymph Auto 35.0 % 09/25/2018 COMPLETE BLOOD COUNT 1436994 Dale Auto 6.3 % 09/25/2018 COMPLETE BLOOD COUNT 0463699 RDW 12.6 % 09/25/2018 COMPLETE BLOOD COUNT 6712138 Eos Auto 1.1 % 09/25/2018 COMPLETE BLOOD COUNT 9589382 Baso Auto 0.2 % 09/25/2018 COMPLETE BLOOD COUNT 5361439 Neutrophil Abs 4.65 10e9/L 09/25/2018 COMPLETE BLOOD COUNT 9815781 Lymphocyte Abs 2.84 10e9/L 09/25/2018 COMPLETE BLOOD COUNT 6898004 Monocyte Abs 0.51 10e9/L 09/25/2018 COMPLETE BLOOD COUNT 2232267 Eosinophil Abs 0.09 10e9/L 09/25/2018 COMPLETE BLOOD COUNT 1871512 RDW-SD 43.0 fL 09/25/2018 COMPLETE BLOOD COUNT 7149711 Basophil Abs 0.02 10e9/L 09/25/2018 COMPREHENSIVE METABOLIC 03454 AST 15 U/L 09/25/2018 COMPREHENSIVE METABOLIC 96446 ALT 20 U/L 09/25/2018 COMPREHENSIVE METABOLIC 29713 BUN 9 mg/dL 09/25/2018 COMPREHENSIVE METABOLIC 61944 ALBUMIN 4.3 g/dL 09/25/2018 COMPREHENSIVE METABOLIC 16726 CHLORIDE 107 mmol/L 09/25/2018 COMPREHENSIVE METABOLIC 12339 Bili Total 0.4 mg/dL 09/25/2018 COMPREHENSIVE METABOLIC 25955 ALK PHOS 51 U/L 09/25/2018 COMPREHENSIVE METABOLIC 66979 SODIUM 139 mmol/L 09/25/2018 COMPREHENSIVE METABOLIC 77292 CREATININE 0.61 mg/dL 09/25/2018 COMPREHENSIVE METABOLIC 31194 CALCIUM 9.1 mg/dL 09/25/2018 COMPREHENSIVE METABOLIC 68942 POTASSIUM 3.7 mmol/L 09/25/2018 COMPREHENSIVE METABOLIC 21783 Total Protein 6.3 g/dL 09/25/2018 COMPREHENSIVE METABOLIC 21118 Glucose 92 mg/dL 09/25/2018 COMPREHENSIVE METABOLIC 48120 Bicarbonate 24 mmol/L 09/25/2018 COMPREHENSIVE METABOLIC 81201 AGAP 8 mmol/L 09/25/2018 PT 2394803 PT 25.0 Seconds 09/25/2018 PT [id number] INR 2.2 09/25/2018 GFR CALC 6972527 GFR Non Afr Amr >60 mL/min 09/25/2018 GFR CALC [id number] GFR Afr Amr >60 mL/min 09/25/2018 PT 4107055 PT 25.7 Seconds 05/12/2018 PT 5950967 INR 2.3 05/12/2018 PT 2337844 PT TNP:Improper Specimen 04/30/2018 PT [id number] INR TNP:Improper Specimen 04/30/2018 PT 4519446 PT 26.3 Seconds 02/05/2018 PT [id number] INR 2.4 02/05/2018 ANTI STREPTOLYSIN O TITER(ASO) 85834 ASO Titr 118 IU/mL 8 VITAMIN B 12 01578 VITAM IN B12 302 pg/mL 12/02/2017 VITAMIN D TOTAL (25 HYDROXY) 09873 Vitamin D 25 OH 27.0 ng/mL 12/02/2017 PT 4448413 PT 17.3 Seconds 12/01/2017 PT 2652302 INR 1.4 12/01/2017 ANTI STREPTOLYSIN O TITER(ASO) 09986 ASO Titr 127 IU/mL 8 ANTI STREPTOLYSIN O TITER(ASO) 99168 ASO Titr 130 IU/mL 8 ANTINUCLEAR ANTIBODY SCREEN 35398 MAGALIE Ab Scr <1:80 10/02/2017 RA FACTOR 04172 RA FACTOR <20 IU/mL 10/02/2017 RA FACTOR 78250 RA Facto r Intp Negative 10/02/2017 VITAMIN D TOTAL (25 HYDROXY) 80013 Vitamin D 25 OH 18 ng/mL 8 IRON 82991 Iron 70 ug/dL 10/01/2017 VITAMIN B 12 70545 VITAM IN B12 377 pg/mL 10/01/2017 FREE T4 95135 T4 Free 1.31 ng/dL 10/01/2017 URIC ACID 26308 URIC ACID 3.9 mg/dL 10/01/2017 FERRITIN 18839 FERRITIN 68.0 ng/mL 10/01/2017 THYROID STIMULATING HORMONE 27310 TSH 1.401 uIU/mL 8 GLYCOSYLATED HEMOGLOBIN TEST 23073 Hgb A1c 81807-7 5.4 % 10/01/2017 FOLIC ACID 74019 Folate >24.0 ng/mL 10/01/2017 ASSAY TRIIODOTHYRONINE (T3) 15739 T3 Total 1.0 ng/mL 10/01/2017 ERYTHROCYTE SEDIMENTATION RATE 66673 Sed Rate 5 mm/hr 10/01/2017 MEAN GLUC 2720254 Calc M zach Gluc 108 mg/dL 10/01/2017 PT 9684879 PT 18.6 Seconds 08/07/2017 PT [id number] INR 1.5 08/07/2017 COMPREHENSIVE METABOLIC 57556 AST 21 U/L 08/07/2017 COMPREHENSIVE METABOLIC 58786 ALT 37 U/L 08/07/2017 COMPREHENSIVE METABOLIC 94512 BUN 14 mg/dL 08/07/2017 COMPREHENSIVE METABOLIC 47190 ALBUMIN 4.5 g/dL 08/07/2017 COMPREHENSIVE METABOLIC 06076 CHLORIDE 104 mmol/L 08/07/2017 COMPREHENSIVE METABOLIC 46490 Bili Total 0.3 mg/dL 08/07/2017 COMPREHENSIVE METABOLIC 12994 ALK PHOS 55 U/L 08/07/2017 COMPREHENSIVE METABOLIC 01023 SODIUM 139 mmol/L 08/07/2017 COMPREHENSIVE METABOLIC 19956 CREATININE 0.77 mg/dL 08/07/2017 COMPREHENSIVE METABOLIC 83465 CALCIUM 9.2 mg/dL 08/07/2017 COMPREHENSIVE METABOLIC 30058 POTASSIUM 3.7 mmol/L 08/07/2017 COMPREHENSIVE METABOLIC 28984 Total Protein 6.5 g/dL 08/07/2017 COMPREHENSIVE METABOLIC 25787 Glucose 101 mg/dL 08/07/2017 COMPREHENSIVE METABOLIC 51079 Bicarbonate 25 mmol/L 08/07/2017 COMPREHENSIVE METABOLIC 22309 AGAP 10 mmol/L 08/07/2017 COMPLETE BLOOD COUNT 4789552 WBC 9.4 10e9/L 08/07/2017 COMPLETE BLOOD COUNT [id number] RBC 4.38 10e12/L 8 COMPLETE BLOOD COUNT 2618509 HEMOGLOBIN 14.5 g/dL 08/07/2017 COMPLETE BLOOD COUNT 4885520 HEMATOCRIT 42.7 % 08/07/2017 COMPLETE BLOOD COUNT 3227980 MCV 97.5 fL 08/07/2017 COMPLETE BLOOD COUNT 6519359 MCH 33.1 pg 08/07/2017 COMPLETE BLOOD COUNT 1104703 MCHC 34.0 g/dL 08/07/2017 COMPLETE BLOOD COUNT 6342227 PLATELET COUNT 313 10e9/L 08/07/2017 COMPLETE BLOOD COUNT 6909427 Mean Plt Volume 8.6 fL 08/07/2017 COMPLETE BLOOD COUNT 5575403 Neut Auto 51.6 % 08/07/2017 COMPLETE BLOOD COUNT 4778561 Lymph Auto 40.0 % 08/07/2017 COMPLETE BLOOD COUNT 4014882 Dale Auto 6.8 % 08/07/2017 COMPLETE BLOOD COUNT 5714379 RDW 12.9 % 08/07/2017 COMPLETE BLOOD COUNT 8917934 Eos Auto 1.4 % 08/07/2017 COMPLETE BLOOD COUNT 8238562 Baso Auto 0.2 % 08/07/2017 COMPLETE BLOOD COUNT 7675336 Neutrophil Abs 4.85 10e9/L 08/07/2017 COMPLETE BLOOD COUNT 6045197 Lymphocyte Abs 3.76 10e9/L 08/07/2017 COMPLETE BLOOD COUNT 4536131 Monocyte Abs 0.64 10e9/L 08/07/2017 COMPLETE BLOOD COUNT 4463923 Eosinophil Abs 0.13 10e9/L 08/07/2017 COMPLETE BLOOD COUNT 0442143 RDW-SD 45.1 fL 08/07/2017 COMPLETE BLOOD COUNT 2319888 Basophil Abs 0.02 10e9/L 08/07/2017 GFR CALC 5665532 GFR Non Afr Amr >60 mL/min 08/07/2017 GFR CALC 5235761 GFR Afr Amr >60 mL/min 08/07/2017 COMPLETE BLOOD COUNT 2586326 WBC 9.2 10e9/L 07/15/2017 COMPLETE BLOOD COUNT 8555853 RBC 4.70 10e12/L 8 COMPLETE BLOOD COUNT 6485805 HEMOGLOBIN 15.4 g/dL 07/15/2017 COMPLETE BLOOD COUNT 7309877 HEMATOCRIT 46.2 % 07/15/2017 COMPLETE BLOOD COUNT 1076556 MCV 98.3 fL 07/15/2017 COMPLETE BLOOD COUNT 3814818 MCH 32.8 pg 07/15/2017 COMPLETE BLOOD COUNT 8849794 MCHC 33.3 g/dL 07/15/2017 COMPLETE BLOOD COUNT 9004698 PLATELET COUNT 348 10e9/L 07/15/2017 COMPLETE BLOOD COUNT 0082755 Mean Plt Volume 8.9 fL 07/15/2017 COMPLETE BLOOD COUNT 8034354 Neut Auto 60.6 % 07/15/2017 COMPLETE BLOOD COUNT 0159758 Lymph Auto 30.9 % 07/15/2017 COMPLETE BLOOD COUNT 0334642 Dale Auto 7.1 % 07/15/2017 COMPLETE BLOOD COUNT 9991983 RDW 13.1 % 07/15/2017 COMPLETE BLOOD COUNT 1541764 Eos Auto 1.2 % 07/15/2017 COMPLETE BLOOD COUNT 3208949 Baso Auto 0.2 % 07/15/2017 COMPLETE BLOOD COUNT 9893862 Neutrophil Abs 5.58 10e9/L 07/15/2017 COMPLETE BLOOD COUNT 5837236 Lymphocyte Abs 2.84 10e9/L 07/15/2017 COMPLETE BLOOD COUNT 2139907 Monocyte Abs 0.65 10e9/L 07/15/2017 COMPLETE BLOOD COUNT 3500778 Eosinophil Abs 0.11 10e9/L 07/15/2017 COMPLETE BLOOD COUNT 1465876 RDW-SD 46.1 fL 07/15/2017 COMPLETE BLOOD COUNT 4904999 Basophil Abs 0.02 10e9/L 07/15/2017 GFR CALC 5036090 GFR Non Afr Amr >60 mL/min 07/15/2017 GFR CALC 1460808 GFR Afr Amr >60 mL/min 07/15/2017 COMPREHENSIVE METABOLIC 16694 AST 16 U/L 07/15/2017 COMPREHENSIVE METABOLIC 97914 ALT 20 U/L 07/15/2017 COMPREHENSIVE METABOLIC 45367 BUN 13 mg/dL 07/15/2017 COMPREHENSIVE METABOLIC 44523 ALBUMIN 4.6 g/dL 07/15/2017 COMPREHENSIVE METABOLIC 84269 CHLORIDE 106 mmol/L 07/15/2017 COMPREHENSIVE METABOLIC 52564 Bili Total 0.3 mg/dL 07/15/2017 COMPREHENSIVE METABOLIC 51174 ALK PHOS 50 U/L 07/15/2017 COMPREHENSIVE METABOLIC 22800 SODIUM 137 mmol/L 07/15/2017 COMPREHENSIVE METABOLIC 20608 CREATININE 0.62 mg/dL 07/15/2017 COMPREHENSIVE METABOLIC 38338 CALCIUM 9.2 mg/dL 07/15/2017 COMPREHENSIVE METABOLIC 06359 POTASSIUM 3.8 mmol/L 07/15/2017 COMPREHENSIVE METABOLIC 80323 Total Protein 6.7 g/dL 07/15/2017 COMPREHENSIVE METABOLIC 42747 Glucose 83 mg/dL 07/15/2017 COMPREHENSIVE METABOLIC 12176 Bicarbonate 30 mmol/L 07/15/2017 COMPREHENSIVE METABOLIC 89010 AGAP 1 mmol/L 07/15/2017 THYROID STIMULATING HORMONE 30686 TSH 2.111 uIU/mL 201 7 COMPREHENSIVE METABOLIC 51817 AST 33 U/L 08/27/2016 COMPREHENSIVE METABOLIC 88116 ALT 55 U/L 08/27/2016 COMPREHENSIVE METABOLIC 00512 BUN 11 mg/dL 08/27/2016 COMPREHENSIVE METABOLIC 46000 ALBUMIN 4.6 g/dL 08/27/2016 COMPREHENSIVE METABOLIC 62941 CHLORIDE 103 mmol/L 08/27/2016 COMPREHENSIVE METABOLIC 40151 Bili Total 0.3 mg/dL 08/27/2016 COMPREHENSIVE METABOLIC 10472 ALK PHOS 60 U/L 08/27/2016 COMPREHENSIVE METABOLIC 98170 SODIUM 140 mmol/L 08/27/2016 COMPREHENSIVE METABOLIC 11454 CREATININE 0.69 mg/dL 08/27/2016 COMPREHENSIVE METABOLIC 10597 CALCIUM 9.3 mg/dL 08/27/2016 COMPREHENSIVE METABOLIC 44918 POTASSIUM 3.7 mmol/L 08/27/2016 COMPREHENSIVE METABOLIC 60049 Total Protein 6.8 g/dL 08/27/2016 COMPREHENSIVE METABOLIC 91048 Glucose 79 mg/dL 08/27/2016 COMPREHENSIVE METABOLIC 64949 Bicarbonate 25 mmol/L 08/27/2016 COMPREHENSIVE METABOLIC 32676 AGAP 12 mmol/L 08/27/2016 COMPLETE BLOOD COUNT 1980042 WBC 9.4 10e9/L 08/27/2016 COMPLETE BLOOD COUNT 8449669 RBC 4.35 10e12/L 7 COMPLETE BLOOD COUNT 3537153 HEMOGLOBIN 14.2 g/dL 08/27/2016 COMPLETE BLOOD COUNT 5502737 HEMATOCRIT 41.5 % 08/27/2016 COMPLETE BLOOD COUNT 0738384 MCV 95.4 fL 08/27/2016 COMPLETE BLOOD COUNT 8262434 MCH 32.6 pg 08/27/2016 COMPLETE BLOOD COUNT 8581226 MCHC 34.2 g/dL 08/27/2016 COMPLETE BLOOD COUNT 4320236 PLATELET COUNT 289 10e9/L 08/27/2016 COMPLETE BLOOD COUNT 8468630 Mean Plt Volume 9.8 fL 08/27/2016 COMPLETE BLOOD COUNT 3612146 Neut Auto 47.7 % 08/27/2016 COMPLETE BLOOD COUNT 4850112 Lymph Auto 44.2 % 08/27/2016 COMPLETE BLOOD COUNT 1373310 Dale Auto 6.6 % 08/27/2016 COMPLETE BLOOD COUNT 1126711 RDW 12.9 % 08/27/2016 COMPLETE BLOOD COUNT 9956710 Eos Auto 1.4 % 08/27/2016 COMPLETE BLOOD COUNT 2944300 Baso Auto 0.1 % 08/27/2016 COMPLETE BLOOD COUNT 7615078 Neutrophil Abs 4.48 10e9/L 08/27/2016 COMPLETE BLOOD COUNT 2279331 Lymphocyte Abs 4.15 10e9/L 08/27/2016 COMPLETE BLOOD COUNT 3107407 Monocyte Abs 0.62 10e9/L 08/27/2016 COMPLETE BLOOD COUNT 6383699 Eosinophil Abs 0.13 10e9/L 08/27/2016 COMPLETE BLOOD COUNT 8279416 RDW-SD 43.9 fL 08/27/2016 COMPLETE BLOOD COUNT 7179697 Basophil Abs 0.01 10e9/L 08/27/2016 PT 2283528 PT 15.0 Seconds 08/27/2016 PT 8964110 INR 1.2 08/27/2016 GFR CALC 1408393 GFR Afr Amr >60 mL/min 08/27/2016 GFR CALC 1688227 GFR Non Afr Amr >60 mL/min 08/27/2016 GFR CALC 6803557 GFR Non Afr Amr >60 mL/min 05/24/2016 GFR CALC 2901940 GFR Afr Amr >60 mL/min 05/24/2016 COMPREHENSIVE METABOLIC 99321 AST 19 U/L 05/24/2016 COMPREHENSIVE METABOLIC 98952 ALT 23 U/L 05/24/2016 COMPREHENSIVE METABOLIC 28471 BUN 12 mg/dL 05/24/2016 COMPREHENSIVE METABOLIC 68841 ALBUMIN 4.1 g/dL 05/24/2016 COMPREHENSIVE METABOLIC 11918 CHLORIDE 105 mmol/L 05/24/2016 COMPREHENSIVE METABOLIC 20727 Bili Total 0.4 mg/dL 05/24/2016 COMPREHENSIVE METABOLIC 89065 ALK PHOS 52 U/L 05/24/2016 COMPREHENSIVE METABOLIC 38180 SODIUM 136 mmol/L 05/24/2016 COMPREHENSIVE METABOLIC 44790 CREATININE 0.61 mg/dL 05/24/2016 COMPREHENSIVE METABOLIC 62290 CALCIUM 8.8 mg/dL 05/24/2016 COMPREHENSIVE METABOLIC 84912 POTASSIUM 3.8 mmol/L 05/24/2016 COMPREHENSIVE METABOLIC 02130 Total Protein 6.2 g/dL 05/24/2016 COMPREHENSIVE METABOLIC 53053 Glucose 95 mg/dL 05/24/2016 COMPREHENSIVE METABOLIC 49538 Bicarbonate 19 mmol/L 05/24/2016 COMPREHENSIVE METABOLIC 49825 AGAP 12 mmol/L 05/24/2016 PT 9461979 PT 25.7 Seconds 05/24/2016 PT 4288291 INR 2.4 05/24/2016 PT 6729579 PT 22.2 Seconds 04/11/2016 PT 8207423 INR 2.0 04/11/2016 PT 1446835 PT 16.5 Seconds 03/13/2016 PT 8132160 INR 1.4 03/13/2016 THYROID STIMULATING HORMONE 45398 TSH 1.151 uIU/mL 6 COMPLETE BLOOD COUNT 7553701 WBC 10.0 10e9/L 03/12/2016 COMPLETE BLOOD COUNT 6199065 RBC 4.08 10e12/L 6 COMPLETE BLOOD COUNT 6142949 HEMOGLOBIN 13.5 g/dL 03/12/2016 COMPLETE BLOOD COUNT 8003934 HEMATOCRIT 38.8 % 03/12/2016 COMPLETE BLOOD COUNT 7963307 MCV 95.1 fL 03/12/2016 COMPLETE BLOOD COUNT 5769114 MCH 33.1 pg 03/12/2016 COMPLETE BLOOD COUNT 9482381 MCHC 34.8 g/dL 03/12/2016 COMPLETE BLOOD COUNT 4667746 PLATELET COUNT 282 10e9/L 03/12/2016 COMPLETE BLOOD COUNT 6142041 Mean Plt Volume 9.6 fL 03/12/2016 COMPLETE BLOOD COUNT 0958311 Neut Auto 53.5 % 03/12/2016 COMPLETE BLOOD COUNT 1732581 Lymph Auto 39.0 % 03/12/2016 COMPLETE BLOOD COUNT 0757602 Dale Auto 5.9 % 03/12/2016 COMPLETE BLOOD COUNT 9880077 RDW 12.6 % 03/12/2016 COMPLETE BLOOD COUNT 0634229 Eos Auto 1.4 % 03/12/2016 COMPLETE BLOOD COUNT 7249881 Baso Auto 0.2 % 03/12/2016 COMPLETE BLOOD COUNT 3243639 Neutrophil Abs 5.35 10e9/L 03/12/2016 COMPLETE BLOOD COUNT 8167905 Lymphocyte Abs 3.90 10e9/L 03/12/2016 COMPLETE BLOOD COUNT 9668432 Monocyte Abs 0.59 10e9/L 03/12/2016 COMPLETE BLOOD COUNT 3781398 Eosinophil Abs 0.14 10e9/L 03/12/2016 COMPLETE BLOOD COUNT 7211786 RDW-SD 42.7 fL 03/12/2016 COMPLETE BLOOD COUNT 5046975 Basophil Abs 0.02 10e9/L 03/12/2016 COMPREHENSIVE METABOLIC 97482 AST 13 U/L 03/12/2016 COMPREHENSIVE METABOLIC 67616 ALT 11 U/L 03/12/2016 COMPREHENSIVE METABOLIC 62350 BUN 11 mg/dL 03/12/2016 COMPREHENSIVE METABOLIC 78075 ALBUMIN 4.1 g/dL 03/12/2016 COMPREHENSIVE METABOLIC 32394 CHLORIDE 107 mmol/L 03/12/2016 COMPREHENSIVE METABOLIC 75717 Bili Total 0.3 mg/dL 03/12/2016 COMPREHENSIVE METABOLIC 99835 ALK PHOS 41 U/L 03/12/2016 COMPREHENSIVE METABOLIC 11388 SODIUM 137 mmol/L 03/12/2016 COMPREHENSIVE METABOLIC 21331 CREATININE 0.62 mg/dL 03/12/2016 COMPREHENSIVE METABOLIC 51299 CALCIUM 9.0 mg/dL 03/12/2016 COMPREHENSIVE METABOLIC 05108 POTASSIUM 3.8 mmol/L 03/12/2016 COMPREHENSIVE METABOLIC 24191 Total Protein 6.1 g/dL 03/12/2016 COMPREHENSIVE METABOLIC 64937 Glucose 95 mg/dL 03/12/2016 COMPREHENSIVE METABOLIC 27857 Bicarbonate 23 mmol/L 03/12/2016 COMPREHENSIVE METABOLIC 43478 AGAP 7 mmol/L 03/12/2016 GFR CALC 7949075 GFR Non Afr Amr >60 mL/min 03/12/2016 GFR CALC 1097695 GFR Afr Amr >60 mL/min 03/12/2016 PT 7804817 PT 14.4 Seconds 02/12/2016 PT 9426156 INR 1.2 02/12/2016 PT 4765550 PT 26.1 Seconds 02/01/2016 PT 3581441 INR 2.4 02/01/2016 EB VIRUS VCA G/M + EBNA + [place] [address]|8 6665 x 2|50408 EBV VCA Ab IgG 3.70 11/13/2015 [place] VIR[place] VCA G/M + EBNA + [place] [address]|8 6665 x 2|62174 EBV VCA Ab IgM 0.47 11/13/2015 [place] VCA G/M + [place] + [place] [address]|8 6665 x 2|49326 EBV Nuclear Ab 2.24 11/13/2015 EB VIR[place] VCA G/M + [place] + [place] [address]|8 6665 x 2|42809 EBV Early Ab 1.37 11/13/2015 PT 4336484 PT 18.9 Seconds 11/10/2015 PT 1515690 INR 1.6 11/10/2015 PT 1979542 PT 16.8 Seconds 09/29/2015 PT 3242913 INR 1.4 09/29/2015 COMPLETE BLOOD COUNT 6120109 WBC 9.6 10e9/L 09/29/2015 COMPLETE BLOOD COUNT 0276096 RBC 4.51 10e12/L 6 COMPLETE BLOOD COUNT 5542493 HEMOGLOBIN 14.8 g/dL 09/29/2015 COMPLETE BLOOD COUNT 0831835 HEMATOCRIT 43.3 % 09/29/2015 COMPLETE BLOOD COUNT 3877855 MCV 96.0 fL 09/29/2015 COMPLETE BLOOD COUNT 5340422 MCH 32.8 pg 09/29/2015 COMPLETE BLOOD COUNT 3119220 MCHC 34.2 g/dL 09/29/2015 COMPLETE BLOOD COUNT 8115033 PLATELET COUNT 310 10e9/L 09/29/2015 COMPLETE BLOOD COUNT 2481825 Mean Plt Volume 9.7 fL 09/29/2015 COMPLETE BLOOD COUNT 0509569 Neutrophil 60.3 % 09/29/2015 COMPLETE BLOOD COUNT 3657824 Lymph Auto % 32.4 % 09/29/2015 COMPLETE BLOOD COUNT 0726831 Monocyte Auto % 6.5 % 09/29/2015 COMPLETE BLOOD COUNT 2883556 RDW 12.8 % 09/29/2015 COMPLETE BLOOD COUNT 0835763 Eosinophil 0.7 % 09/29/2015 COMPLETE BLOOD COUNT 6753230 Basophil 0.1 % 09/29/2015 COMPLETE BLOOD COUNT 7268522 Neutrophil Abs 5.79 10e9/L 09/29/2015 COMPLETE BLOOD COUNT 1689140 Lymphoctye Abs 3.11 10e9/L 09/29/2015 COMPLETE BLOOD COUNT 3623664 Monocyte Abs 0.62 10e9/L 09/29/2015 COMPLETE BLOOD COUNT 1383798 Eosinophil Abs 0.07 10e9/L 09/29/2015 COMPLETE BLOOD COUNT 8223297 RDW-SD 43.6 fL 09/29/2015 COMPLETE BLOOD COUNT 2540873 Basophil Abs 0.01 10e9/L 09/29/2015 IRON 95073 Iron 86 ug/dL 09/29/2015 COMPLETE BLOOD COUNT 9643688 WBC 9.6 10e9/L 09/29/2015 COMPLETE BLOOD COUNT 8973876 RBC 4.51 10e12/L 6 COMPLETE BLOOD COUNT 4618158 HEMOGLOBIN 14.8 g/dL 09/29/2015 COMPLETE BLOOD COUNT 3452979 HEMATOCRIT 43.3 % 09/29/2015 COMPLETE BLOOD COUNT 5998631 MCV 96.0 fL 09/29/2015 COMPLETE BLOOD COUNT 2908794 MCH 32.8 pg 09/29/2015 COMPLETE BLOOD COUNT 1094158 MCHC 34.2 g/dL 09/29/2015 COMPLETE BLOOD COUNT 8905046 PLATELET COUNT 310 10e9/L 09/29/2015 COMPLETE BLOOD COUNT 7391720 Mean Plt Volume 9.7 fL 09/29/2015 COMPLETE BLOOD COUNT 4135780 Neutrophil 60.3 % 09/29/2015 COMPLETE BLOOD COUNT 8067619 Lymph Auto % 32.4 % 09/29/2015 COMPLETE BLOOD COUNT 2124477 Monocyte Auto % 6.5 % 09/29/2015 COMPLETE BLOOD COUNT 6139553 RDW 12.8 % 09/29/2015 COMPLETE BLOOD COUNT 9003507 Eosinophil 0.7 % 09/29/2015 COMPLETE BLOOD COUNT 5213568 Basophil 0.1 % 09/29/2015 COMPLETE BLOOD COUNT 9388567 Neutrophil Abs 5.79 10e9/L 09/29/2015 COMPLETE BLOOD COUNT 7286404 Lymphoctye Abs 3.11 10e9/L 09/29/2015 COMPLETE BLOOD COUNT 4650873 Monocyte Abs 0.62 10e9/L 09/29/2015 COMPLETE BLOOD COUNT 1556780 Eosinophil Abs 0.07 10e9/L 09/29/2015 COMPLETE BLOOD COUNT 9612056 RDW-SD 43.6 fL 09/29/2015 COMPLETE BLOOD COUNT 9146287 Basophil Abs 0.01 10e9/L 09/29/2015 PT 7076633 PT 16.8 Seconds 09/29/2015 PT 8322345 INR 1.4 09/29/2015 IRON 26516 Iron 86 ug/dL 09/29/2015 PT MT IVANNA 75391 PRO T PAULIE 19.4 SEC 07/27/2015 PT MT IVANNA 41016 INR M CMC 1.7 07/27/2015 PT MT IVANNA 35676 PRO T PAULIE 21.4 SEC 06/21/2015 PT ND IVANNA 48970 INR M CMC 1.9 06/21/2015 PT MT IVANNA 57638 PRO T PAULIE 24.5 SEC 05/24/2015 PT ND IVANNA 06687 INR M CMC 2.3 05/24/2015 Review of [...] Procedures Procedure Codes Date ROUTINE VENIPUNCTURE CPT-4: 43950 01/19/2019 PROTHROMBIN TIME CPT-4: 23210 01/19/2019 COMPLETE CBC W/AUTO DIFF WBC CPT-4: 65903 01/19/2019 ANTISTREPTOLYSIN O T ITER CPT-4: 40071 01/19/2019 HEPATIC FUNCTION PANEL CPT-4: 44898 01/19/2019 MYCOPLASMA ANTIBODY, IFA CPT-4: 70076I0 01/19/2019 RESPIRATORY CULTURE & STAIN CPT-4: 28943 01/19/2019 STREP A ASSAY W/OPTIC CPT-4: 39792 01/19/2019 THER/PROPH/DIAG INJ SC/IM CPT-4: 91946 01/04/2019 TRIAMCINOLONE ACET I NJ NOS CPT-4: J3301 01/04/2019 ROUTINE VENIPUNCTURE CPT-4: 92748 12/18/2018 COMPLETE CBC W/AUTO DIFF WBC CPT-4: 53905 12/18/2018 COMPREHEN METABOLIC PANEL CPT-4: 43776 12/18/2018 HYDRATION IV INFUSIO N INIT CPT-4: 87304 12/16/2018 STREP A ASSAY W/OPTIC CPT-4: 73582 12/02/2018 ROUTINE VENIPUNCTURE CPT-4: 13386 11/30/2018 PT CPT-4: 2383774 11/30/2018 CEFTRIAXONE SODIUM I NJECTION CPT-4: J0696 11/30/2018 THER/PROPH/DIAG INJ SC/IM CPT-4: 76426 11/30/2018 URINE CULTURE/ COLON Y COUNT CPT-4: 88028 11/20/2018 URINALYSIS NONAUTO W /O SCOPE CPT-4: 04929 11/20/2018 CEFTRIAXONE SODIUM I NJECTION CPT-4: J0696 11/12/2018 THER/PROPH/DIAG INJ SC/IM CPT-4: 24550 11/12/2018 STREP A ASSAY W/OPTIC CPT-4: 20799 11/11/2018 CEFTRIAXONE SODIUM I NJECTION CPT-4: J0696 11/11/2018 THER/PROPH/DIAG INJ SC/IM CPT-4: 18537 11/11/2018 ROUTINE VENIPUNCTURE CPT-4: 35449 11/11/2018 ANTISTREPTOLYSIN O T ITER CPT-4: 43060 11/11/2018 COMPLETE CBC W/AUTO DIFF WBC CPT-4: 10016 11/11/2018 ROUTINE VENIPUNCTURE CPT-4: 92660 10/27/2018 PT CPT-4: 6041738 10/27/2018 THER/PROPH/DIAG INJ SC/IM CPT-4: 82193 10/09/2018 TRIAMCINOLONE ACET I NJ NOS CPT-4: J3301 10/09/2018 CEFTRIAXONE SODIUM I NJECTION CPT-4: J0696 10/08/2018 THER/PROPH/DIAG INJ SC/IM CPT-4: 74823 10/08/2018 CEFTRIAXONE SODIUM I NJECTION CPT-4: J0696 10/07/2018 THER/PROPH/DIAG INJ SC/IM CPT-4: 80034 10/07/2018 ROUTINE VENIPUNCTURE CPT-4: 35899 09/25/2018 COMPREHEN METABOLIC PANEL CPT-4: 61568 09/25/2018 COMPLETE CBC W/AUTO DIFF WBC CPT-4: 27310 09/25/2018 PT CPT-4: 3149363 09/25/2018 URINE CULTURE/ COLON Y COUNT CPT-4: 12731 09/10/2018 URINALYSIS NONAUTO W /O SCOPE CPT-4: 99287 09/10/2018 CEFTRIAXONE SODIUM I NJECTION CPT-4: J0696 09/08/2018 THER/PROPH/DIAG INJ SC/IM CPT-4: 39150 09/08/2018 ROUTINE VENIPUNCTURE CPT-4: 00558 08/14/2018 PT CPT-4: 9493288 08/14/2018 CEFTRIAXONE SODIUM I NJECTION CPT-4: J0696 07/02/2018 THER/PROPH/DIAG INJ SC/IM CPT-4: 64381 07/02/2018 THER/PROPH/DIAG INJ SC/IM CPT-4: 57760 07/02/2018 TRIAMCINOLONE ACET I NJ NOS CPT-4: J3301 07/02/2018 ROUTINE VENIPUNCTURE CPT-4: 89054 06/22/2018 ANTISTREPTOLYSIN O T ITER CPT-4: 80862 06/22/2018 ROUTINE VENIPUNCTURE CPT-4: 87149 06/17/2018 PROTHROMBIN TIME CPT-4: 81230 06/17/2018 URINE CULTURE/ COLON Y COUNT CPT-4: 56736 06/17/2018 CEFTRIAXONE SODIUM I NJECTION CPT-4: J0696 05/12/2018 THER/PROPH/DIAG INJ SC/IM CPT-4: 40514 05/12/2018 PROTHROMBIN TIME CPT-4: 00096 05/11/2018 CEFTRIAXONE SODIUM I NJECTION CPT-4: J0696 05/11/2018 THER/PROPH/DIAG INJ SC/IM CPT-4: 65675 05/11/2018 ROUTINE VENIPUNCTURE CPT-4: 87900 04/30/2018 PROTHROMBIN TIME CPT-4: 27560 04/30/2018 THER/PROPH/DIAG INJ SC/IM CPT-4: 91840 04/02/2018 TRIAMCINOLONE ACET I NJ NOS CPT-4: J3301 04/02/2018 IIV4 VACCINE 3 YRS+ IM AND UP CPT-4: 27992 03/24/2018 IMMUNIZATION ADMIN CPT- 4: 40773 03/24/2018 ROUTINE VENIPUNCTURE CPT-4: 54989 03/24/2018 PT CPT-4: 7141134 03/24/2018 PROTHROMBIN TIME CPT-4: 95098 02/24/2018 ROUTINE VENIPUNCTURE CPT-4: 38661 02/24/2018 ROUTINE VENIPUNCTURE CPT-4: 64446 02/05/2018 PROTHROMBIN TIME CPT-4: 56987 02/05/2018 URINE CULTURE/ COLON Y COUNT CPT-4: 40295 02/05/2018 CEFTRIAXONE SODIUM I NJECTION CPT-4: J0696 01/29/2018 THER/PROPH/DIAG INJ SC/IM CPT-4: 42931 01/29/2018 CEFTRIAXONE SODIUM I NJECTION CPT-4: J0696 01/28/2018 THER/PROPH/DIAG INJ SC/IM CPT-4: 53028 01/28/2018 URINALYSIS NONAUTO W /O SCOPE CPT-4: 93801 01/26/2018 URINE CULTURE/ COLON Y COUNT CPT-4: 24936 01/26/2018 ROUTINE VENIPUNCTURE CPT-4: 03674 01/01/2018 PROTHROMBIN TIME CPT-4: 88533 01/01/2018 THER/PROPH/DIAG INJ SC/IM CPT-4: 26327 12/25/2017 TRIAMCINOLONE ACET I NJ NOS CPT-4: J3301 12/25/2017 DEXAMETHASONE SODIUM PHOS CPT-4: J1100 12/25/2017 STREP A ASSAY W/OPTIC CPT-4: 34770 12/11/2017 CEFTRIAXONE SODIUM I NJECTION CPT-4: J0696 12/11/2017 THER/PROPH/DIAG INJ SC/IM CPT-4: 27947 12/11/2017 ROUTINE VENIPUNCTURE CPT-4: 81747 12/01/2017 ANTISTREPTOLYSIN O T ITER CPT-4: 58475 12/01/2017 PROTHROMBIN TIME CPT-4: 30674 12/01/2017 VITAMIN D TOTAL (25 HYDROXY) CPT-4: 17219 12/01/2017 VITAMIN B-12 CPT-4: 33101 12/01/2017 SPECIMEN HANDLING OF FICE-LAB CPT-4: 71972 11/05/2017 ROUTINE VENIPUNCTURE CPT-4: 08413 10/14/2017 ANTISTREPTOLYSIN O T ITER CPT-4: 51437 10/14/2017 ROUTINE VENIPUNCTURE CPT-4: 31694 10/06/2017 PROTHROMBIN TIME CPT-4: 25911 10/06/2017 THER/PROPH/DIAG INJ SC/IM CPT-4: 85118 10/06/2017 TRIAMCINOLONE ACET I NJ NOS CPT-4: J3301 10/06/2017 ROUTINE VENIPUNCTURE CPT-4: 12414 10/01/2017 VITAMIN B-12 CPT-4: 55235 10/01/2017 FOLIC ACID CPT-4: 99464 10/01/2017 ASSAY THYROID STIM H ORMONE CPT-4: 32918 10/01/2017 ASSAY OF FREE THYROXINE CPT-4: 67193 10/01/2017 ASSAY TRIIODOTHYRONI NE (T3) CPT-4: 83307 10/01/2017 ASSAY OF BLOOD/URIC ACID CPT-4: 98833 10/01/2017 RHEUMATOID FACTOR QUANT CPT-4: 03850 10/01/2017 RBC SED RATE AUTOMATED CPT-4: 96566 10/01/2017 ANTISTREPTOLYSIN O T ITER CPT-4: 02292 10/01/2017 ASSAY OF IRON CPT-4: 40334 10/01/2017 ASSAY OF FERRITIN CPT-4: 48551 10/01/2017 ANTINUCLEAR ANTIBODIES CPT-4: 04943 10/01/2017 A1C HPLC CPT-4: 29507 10/01/2017 VITAMIN D TOTAL (25 HYDROXY) CPT-4: 04952 10/01/2017 THER/PROPH/DIAG INJ SC/IM CPT-4: 93767 09/05/2017 TRIAMCINOLONE ACET I NJ NOS CPT-4: J3301 09/05/2017 URINALYSIS NONAUTO W /O SCOPE CPT-4: 56469 09/05/2017 URINE CULTURE/ COLON Y COUNT CPT-4: 58538 09/05/2017 ROUTINE VENIPUNCTURE CPT-4: 48220 09/04/2017 PROTHROMBIN TIME CPT-4: 03592 09/04/2017 ROUTINE VENIPUNCTURE CPT-4: 31490 08/07/2017 COMPLETE CBC W/AUTO DIFF WBC CPT-4: 42139 08/07/2017 COMPREHEN METABOLIC PANEL CPT-4: 46993 08/07/2017 PROTHROMBIN TIME CPT-4: 83331 08/07/2017 INFLUENZA ASSAY W/OPTIC CPT-4: 99143 07/15/2017 ROUTINE VENIPUNCTURE CPT-4: 49289 07/15/2017 COMPREHEN METABOLIC PANEL CPT-4: 99102 07/15/2017 COMPLETE CBC W/AUTO DIFF WBC CPT-4: 44189 07/15/2017 CEFTRIAXONE SODIUM I NJECTION CPT-4: J0696 07/04/2017 THER/PROPH/DIAG INJ SC/IM CPT-4: 94015 07/04/2017 THER/PROPH/DIAG INJ SC/IM CPT-4: 76238 07/04/2017 TRIAMCINOLONE ACET I NJ NOS CPT-4: J3301 07/04/2017 CEFTRIAXONE SODIUM I NJECTION CPT-4: J0696 07/02/2017 THER/PROPH/DIAG INJ SC/IM CPT-4: 02163 07/02/2017 CEFTRIAXONE SODIUM I NJECTION CPT-4: J0696 07/01/2017 THER/PROPH/DIAG INJ SC/IM CPT-4: 18728 07/01/2017 ROUTINE VENIPUNCTURE CPT-4: 94548 06/19/2017 PROTHROMBIN TIME CPT-4: 69624 06/19/2017 THER/PROPH/DIAG INJ SC/IM CPT-4: 01197 04/01/2017 TRIAMCINOLONE ACET I NJ NOS CPT-4: J3301 04/01/2017 ROUTINE VENIPUNCTURE CPT-4: 91426 02/10/2017 PROTHROMBIN TIME CPT-4: 41072 02/10/2017 URINALYSIS NONAUTO W /O SCOPE CPT-4: 48991 02/10/2017 URINE CULTURE/ COLON Y COUNT CPT-4: 88520 02/10/2017 ROUTINE VENIPUNCTURE CPT-4: 50274 02/05/2017 PROTHROMBIN TIME CPT-4: 30554 02/05/2017 THROAT CULTURE CPT-4: 20280 02/03/2017 STREP A ASSAY W/OPTIC CPT-4: 89498 01/13/2017 ROUTINE VENIPUNCTURE CPT-4: 07950 12/18/2016 PROTHROMBIN TIME CPT-4: 64647 12/18/2016 URINE CULTURE/ COLON Y COUNT CPT-4: 25320 08/27/2016 ASSAY THYROID STIM H ORMONE CPT-4: 93639 08/27/2016 COMPREHEN METABOLIC PANEL CPT-4: 35089 08/27/2016 COMPLETE CBC W/AUTO DIFF WBC CPT-4: 83365 08/27/2016 PROTHROMBIN TIME CPT-4: 91198 08/27/2016 ROUTINE VENIPUNCTURE CPT-4: 98810 08/27/2016 ROUTINE VENIPUNCTURE CPT-4: 06655 05/24/2016 COMPREHEN METABOLIC PANEL CPT-4: 71460 05/24/2016 PROTHROMBIN TIME CPT-4: 01268 05/24/2016 URINALYSIS NONAUTO W /O SCOPE CPT-4: 19268 04/23/2016 URINE CULTURE/ COLON Y COUNT CPT-4: 99624 04/23/2016 PRESCRIP TRANSMIT A ERX SY CPT-4: G8553 04/23/2016 AEROBIC WOUND CULTUR E & STN CPT-4: 10081 04/17/2016 ROUTINE VENIPUNCTURE CPT-4: 82930 04/11/2016 PROTHROMBIN TIME CPT-4: 47578 04/11/2016 ROUTINE VENIPUNCTURE CPT-4: 04553 03/12/2016 COMPLETE CBC W/AUTO DIFF WBC CPT-4: 05269 03/12/2016 COMPREHEN METABOLIC PANEL CPT-4: 49711 03/12/2016 ASSAY THYROID STIM H ORMONE CPT-4: 92728 03/12/2016 PROTHROMBIN TIME CPT-4: 26186 03/12/2016 ROUTINE VENIPUNCTURE CPT-4: 82015 02/12/2016 PROTHROMBIN TIME CPT-4: 33324 02/12/2016 ROUTINE VENIPUNCTURE CPT-4: 85943 02/01/2016 PROTHROMBIN TIME CPT-4: 91258 02/01/2016 ROUTINE VENIPUNCTURE CPT-4: 58268 01/22/2016 PROTHROMBIN TIME CPT-4: 06799 01/22/2016 ROUTINE VENIPUNCTURE CPT-4: 45423 11/10/2015 PROTHROMBIN TIME CPT-4: 86140 11/10/2015 CEFTRIAXONE SODIUM I NJECTION CPT-4: J0696 11/10/2015 THER/PROPH/DIAG INJ SC/IM CPT-4: 91361 11/10/2015 EB VIRUS VCA G/M + E BNA + EA CPT-4: 03496|96934 x 2|04005 016 THROAT CULTURE CPT-4: 95375 11/09/2015 STREP A ASSAY W/OPTIC CPT-4: 60321 11/09/2015 STREP A ASSAY W/OPTIC CPT-4: 76971 10/02/2015 ROUTINE VENIPUNCTURE CPT-4: 77501 09/29/2015 COMPLETE CBC W/AUTO DIFF WBC CPT-4: 43469 09/29/2015 ASSAY OF IRON CPT-4: 71713 09/29/2015 PROTHROMBIN TIME CPT-4: 69943 09/29/2015 ROUTINE VENIPUNCTURE CPT-4: 42327 07/27/2015 PROTHROMBIN TIME CPT-4: 30408 07/27/2015 URINALYSIS NONAUTO W /O SCOPE CPT-4: 22485 06/30/2015 URINE CULTURE/ COLON Y COUNT CPT-4: 49706 06/30/2015 ROUTINE VENIPUNCTURE CPT-4: 94148 06/21/2015 PROTHROMBIN TIME CPT-4: 06605 06/21/2015 URINE CULTURE/ COLON Y COUNT CPT-4: 61657 05/31/2015 ROUTINE VENIPUNCTURE CPT-4: 07101 05/24/2015 PROTHROMBIN TIME CPT-4: 87241 05/24/2015 URINALYSIS NONAUTO W /O SCOPE CPT-4: 33566 05/24/2015 Vital Signs Date Vital 01/19/2019 Blood [...] 1: 122/70 Code: 8480-6 BMI: 32.2 Code: 17205-2 Heart Rate 1: 88 bpm Height: 5'3" Respiratory Rate: 20 bpm SpO2: 96% Temperature: 36.8 (C ) / 98.2 (F) Weight: 182 lbs 07/23/2018 Blood Pressure 1: 132/80 Code: 8480-6 Heart Rate 1: 84 bpm Respiratory Rate: 20 bpm SpO2: 96% Temperature: 36.6 (C ) / 97.8 (F) Weight: 187 lbs 07/08/2018 Blood Pressure 1: 122/70 Code: 8480-6 BMI: 32.2 Code: 26839-6 Heart Rate 1: 88 bpm Height: 5'3" Respiratory Rate: 20 bpm Temperature: 36.6 (C ) / 97.8 (F) Weight: 182 lbs 07/02/2018 Blood Pressure 1: 124/68 Code: 8480-6 BMI: 32.8 Code: 09707-8 Heart Rate 1: 84 bpm Height: 5'3" Respiratory Rate: 20 bpm SpO2: 98% Temperature: 36.3 (C ) / 97.3 (F) Weight: 185 lbs 06/02/2018 Blood Pressure 1: 132/90 Code: 8480-6 Heart Rate 1: 84 bpm Respiratory Rate: 18 bpm SpO2: 97% Temperature: 36.6 (C ) / 97.9 (F) Weight: 180 lbs 05/11/2018 Blood Pressure 1: 124/80 Code: 8480-6 BMI: 31.7 Code: 53897-7 Heart Rate 1: 88 bpm Height: 5'3" Respiratory Rate: 20 bpm Temperature: 37.0 (C ) / 98.6 (F) Weight: 179 lbs 04/02/2018 Blood Pressure 1: 122/80 Code: 8480-6 Heart Rate 1: 78 bpm Respiratory Rate: 18 bpm SpO2: 97% Temperature: 36.2 (C ) / 97.1 (F) Weight: 181 lbs 8 oz 03/16/2018 Blood Pressure 1: 114/82 Code: 8480-6 BMI: 31.4 Code: 58619-8 Heart Rate 1: 76 bpm Height: 5'3" Respiratory Rate: 20 bpm Temperature: 37.0 (C ) / 98.6 (F) Weight: 177 lbs 02/16/2018 Blood Pressure 1: 114/72 Code: 8480-6 BMI: 31.7 Code: 61353-6 Heart Rate 1: 84 bpm Height: 5'3" Respiratory Rate: 20 bpm Temperature: 37.0 (C ) / 98.6 (F) Weight: 179 lbs 01/26/2018 Blood Pressure 1: 118/78 Code: 8480-6 BMI: 31.7 Code: 28505-2 Heart Rate 1: 80 bpm Height: 5'3" Respiratory Rate: 20 bpm SpO2: 98% Temperature: 36.4 (C ) / 97.6 (F) Weight: 179 lbs 01/01/2018 Blood Pressure 1: 112/78 Code: 8480-6 Heart Rate 1: 86 bpm Height: 5'3" Respiratory Rate: 22 bpm SpO2: 98% Temperature: 36.6 (C ) / 97.8 (F) Weight: 12/25/2017 Blood Pressure 1: 136/78 Code: 8480-6 BMI: 31.5 Code: 10191-1 Heart Rate 1: 84 bpm Height: 5'3" Respiratory Rate: 22 bpm SpO2: 98% Temperature: 36.6 (C ) / 97.9 (F) Weight: 178 lbs 12/11/2017 Blood Pressure 1: 122/74 Code: 8480-6 BMI: 31.2 Code: 95025-2 Heart Rate 1: 86 bpm Height: 5'3" Respiratory Rate: 24 bpm SpO2: 98% Temperature: 35.9 (C ) / 96.6 (F) Weight: 176 lbs 11/05/2017 Blood Pressure 1: 126/82 Code: 8480-6 BMI: 31.5 Code: 11658-8 Heart Rate 1: 84 bpm Height: 5'3" Respiratory Rate: 20 bpm SpO2: 97% Temperature: 36.8 (C ) / 98.3 (F) Weight: 178 lbs 10/06/2017 Blood Pressure 1: 114/78 Code: 8480-6 BMI: 31.4 Code: 30474-5 Heart Rate 1: 80 bpm Height: 5'3" Respiratory Rate: 20 bpm Temperature: 36.9 (C ) / 98.4 (F) Weight: 177 lbs 10/01/2017 Blood Pressure 1: 122/70 Code: 8480-6 BMI: 31.5 Code: 59352-5 Heart Rate 1: 84 bpm Height: 5'3" [...] 1: 132/78 Code: 8480-6 BMI: 32.1 Code: 06580-1 Heart Rate 1: 92 bpm Height: 5'3" Respiratory Rate: 20 bpm SpO2: 96% Temperature: 36.7 (C ) / 98.0 (F) Weight: 181 lbs 05/27/2017 Blood Pressure 1: 142/78 Code: 8480-6 Heart Rate 1: 90 bpm Height: 5'3" Respiratory Rate: 22 bpm SpO2: 98% Temperature: 36.1 (C ) / 97.0 (F) Weight: 05/20/2017 Blood Pressure 1: 122/76 Code: 8480-6 BMI: 31.2 Code: 49346-6 Heart Rate 1: 86 bpm Height: 5'3" Respiratory Rate: 20 bpm SpO2: 98% Temperature: 36.5 (C ) / 97.7 (F) Weight: 176 lbs 04/22/2017 Blood Pressure 1: 132/80 Code: 8480-6 BMI: 31.0 Code: 51590-7 Heart Rate 1: 84 bpm Height: 5'3" Respiratory Rate: 20 bpm Temperature: 36.8 (C ) / 98.2 (F) Weight: 175 lbs 04/01/2017 Blood Pressure 1: 124/70 Code: 8480-6 BMI: 30.8 Code: 05779-5 Heart Rate 1: 88 bpm Height: 5'3" Respiratory Rate: 20 bpm SpO2: 96% Temperature: 36.6 (C ) / 97.9 (F) Weight: 174 lbs 02/05/2017 Blood Pressure 1: 116/58 Code: 8480-6 Heart Rate 1: 96 bpm Height: 5'3" Respiratory Rate: 22 bpm SpO2: 99% Temperature: 36.7 (C ) / 98.1 (F) 01/13/2017 Blood Pressure 1: 136/78 Code: 8480-6 BMI: 30.3 Code: 79447-9 Heart Rate 1: 86 bpm Height: 5'3" Respiratory Rate: 18 bpm SpO2: 98% Temperature: 36.7 (C ) / 98.1 (F) Weight: 171 lbs 11/27/2016 Blood Pressure 1: 114/70 Code: 8480-6 BMI: 30.3 Code: 44706-6 Heart Rate 1: 76 bpm Height: 5'3" [...] 1: 122/78 Code: 8480-6 BMI: 31.0 Code: 15910-3 Heart Rate 1: 76 bpm Height: 5'3" Respiratory Rate: 20 bpm Temperature: 36.8 (C ) / 98.2 (F) Weight: 175 lbs 11/10/2015 Blood Pressure 1: 116/72 Code: 8480-6 BMI: 31.2 Code: 67547-5 Heart Rate 1: 76 bpm Height: 5'3" Respiratory Rate: 20 bpm Temperature: 37.2 (C ) / 98.9 (F) Weight: 176 lbs 11/09/2015 Blood Pressure 1: 122/78 Code: 8480-6 Heart Rate 1: 82 bpm Respiratory Rate: 20 bpm SpO2: 96% Temperature: 36.4 (C ) / 97.6 (F) Weight: 176 lbs 10/10/2015 BMI: 31.5 Code: 12428-2 Heart Rate 1: 72 bpm Height: 5'3" Respiratory Rate: 20 bpm Temperature: 36.6 (C ) / 97.8 (F) Weight: 178 lbs 10/02/2015 Blood Pressure 1: 124/78 Code: 8480-6 Heart Rate 1: 92 bpm Respiratory Rate: 22 bpm SpO2: 96% Temperature: 36.7 (C ) / 98.1 (F) Weight: 178 lbs 07/10/2015 Blood Pressure 1: 112/60 Code: 8480-6 BMI: 33.1 Code: 93381-9 Heart Rate 1: 92 bpm Height: 5'3" Respiratory Rate: 20 bpm Temperature: 36.9 (C ) / 98.4 (F) Weight: 187 lbs 06/27/2015 Blood Pressure 1: 106/62 Code: 8480-6 Heart Rate 1: 88 bpm Respiratory Rate: 22 bpm Temperature: 37.0 (C) / 98.6 (F) Weight: 190 lbs 06/08/2015 Blood Pressure 1: 112/78 Code: 8480-6 BMI: 33.1 Code: 15501-4 Heart Rate 1: 84 bpm Height: 5'3" Respiratory Rate: 20 bpm Temperature: 37.0 (C ) / 98.6 (F) Weight: 187 lbs 05/24/2015 Blood Pressure 1: 126/82 Code: 8480-6 BMI: 33.1 Code: 30040-3 Heart Rate 1: 92 bpm Height: 5'3" [...] Encounters Encounter Performer Loca tion Codes Date ([id number]) OFFICE/OUTPA TIENT VISIT EST Diagnosis: Other fatigue[ICD10: R53.83] Diagnosis: COUGH[ICD10: R05] Diagnosis: Acute pharyngitis due to other specified organisms[ICD10: J02.8] Diagnosis: group home (current) use of anticoagulants[ICD10: Z79.01] Diagnosis: Abnormal levels of other serum enzymes[ICD10: R74.8] Ivon SHAW [facility] CPT-4: 40786 01/19/2019 ([id number]) OFFICE/OUTPA TIENT VISIT EST Diagnosis: Otalgia, left ear[ICD10: H92.02] Diagnosis: Other fatigue[ICD10: R53.83] Ivon BRAMBILA [facility] CPT-4: 38197 01/04/2019 ([id number]) NURSE/OUTPAT IENT VISIT EST Diagnosis: Dehydration[ICD10: E86.0] Kristine Moran [facility] CPT-4: 56229 12/18/2018 ([id number]) NURSE/OUTPAT IENT VISIT EST Diagnosis: Dehydration[ICD10: E86.0] Kristine BRAMBILA DO [facility] CPT-4: 94334 12/16/2018 ([id number]) OFFICE/OUTPA TIENT VISIT EST Diagnosis: Other fatigue[ICD10: R53.83] Diagnosis: Anemia, unspecified[ICD10: D64.9] Diagnosis: Benign lipomatous neoplasm of skin and subcutaneous tissue of trunk[ICD10: D17.1] Kristine BRAMBILA DO 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 CPT-4: 19393 11/30/2018 ([id number]) NURSE/OUTPAT IENT VISIT EST Diagnosis: Dysuria[ICD10: R30.0] rKistine BRAMBILA DO [facility] CPT-4: 27845 11/20/2018 ([id number]) NURSE/OUTPAT IENT VISIT EST Diagnosis: Streptococcal pharyngitis[ICD10: J02.0] Kristine SINCLAIR NDEQuita [facility] CPT-4: 22631 11/12/2018 ([id number]) OFFICE/OUTPA TIENT VISIT EST Diagnosis: Streptococcal pharyngitis[ICD10: J02.0] Lulu Navarro KRISTINE BRAMBILA DO [facility] CPT-4: 25829 11/11/2018 ([id number]) NURSE/OUTPAT IENT VISIT EST Diagnosis: Personal history of diseases of the blood and blood-forming organs and certain disorders involving the immune mechanism[ICD10: Z86.2] Kristine ROWLAND [facility] CPT-4: 43843 10/27/2018 ([id number]) NURSE/OUTPAT IENT VISIT EST Diagnosis: Other allergic rhinitis[ICD10: J30.89] Kristine ROWLAND [facility] CPT-4: 91062 10/09/2018 ([id number]) OFFICE/OUTPA TIENT VISIT EST Diagnosis: Acute recurrent maxillary sinusitis[ICD10: J01.01] Lulu BRAMBILA [facility] CPT-4: 94329 10/08/2018 ([id number]) OFFICE/OUTPA TIENT VISIT EST Diagnosis: Acute recurrent maxillary sinusitis[ICD10: J01.01] Diagnosis: Acute pharyngitis, unspecified[ICD10: J02.9] Lulu BRAMBILA [facility] CPT-4: 82217 10/07/2018 ([id number]) OFFICE/OUTPA TIENT VISIT EST Diagnosis: Dizziness and giddiness[ICD10: R42] Diagnosis: Personal history of pulmonary embolism[ICD10: Z86.711] Lulu BRAMBILA [facility] CPT-4: 22039 09/25/2018 ([id number]) NURSE/OUTPAT IENT VISIT EST Diagnosis: Dysuria[ICD10: R30.0] Kristine BRAMBILA [facility] CPT-4: 39479 09/10/2018 ([id number]) OFFICE/OUTPA TIENT VISIT EST Diagnosis: Streptococcal infection, unspecified site[ICD10: A49.1] Diagnosis: Furuncle right hand[ICD10: L02.521] Diagnosis: Localized swelling, mass and lump, neck[ICD10: R22.1] Kristine ROWLAND [facility] CPT-4: 98914 09/08/2018 ([id number]) NURSE/OUTPAT IENT VISIT EST Diagnosis: Encounter for therapeutic drug level monitoring[ICD10: Z51.81] Kristine BALLER [facility] CPT-4: 13419 08/14/2018 ([id number]) OFFICE/OUTPA TIENT VISIT EST Diagnosis: Acute sinusitis, unspecified[ICD10: J01.90] Diagnosis: Otalgia, left ear[ICD10: H92.02] Ivon BALLER [facility] CPT-4: 37087 07/23/2018 ([id number]) OFFICE/OUTPA TIENT VISIT EST Diagnosis: Streptococcal infection, unspecified site[ICD10: A49.1] Kristine TERRELLR [facility] CPT-4: 55605 07/08/2018 ([id number]) OFFICE/OUTPA TIENT VISIT EST Diagnosis: Periapical abscess with sinus[ICD10: K04.6] Diagnosis: Streptococcal infection, unspecified site[ICD10: A49.1] Diagnosis: Localized enlarged lymph nodes[ICD10: R59.0] Ivon BALL ER [facility] CPT-4: 84264 07/02/2018 ([id number]) NURSE/OUTPAT IENT VISIT EST Diagnosis: Pain in unspecified joint[ICD10: M25.50] Kristine TERRELLR [facility] CPT-4: 26131 06/22/2018 ([id number]) NURSE/OUTPAT IENT VISIT EST Diagnosis: Paroxysmal tachycardia, unspecified[ICD10: I47.9] Diagnosis: Dysuria[ICD10: R30.0] Kristine BALLER [facility] CPT-4: 70863 06/17/2018 ([id number]) OFFICE/OUTPA TIENT VISIT EST Diagnosis: Acute sinusitis, unspecified[ICD10: J01.90] Ivon BALL ER [facility] CPT-4: 53689 06/02/2018 ([id number]) NURSE/OUTPAT IENT VISIT EST Diagnosis: Acute mastoiditis without complications, left ear[ICD10: H70.002] Kristine BALLER [facility] CPT-4: 79947 05/12/2018 ([id number]) OFFICE/OUTPA TIENT VISIT EST Diagnosis: Acute mastoiditis without complications, left ear[ICD10: H70.002] Diagnosis: 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[ICD10: Z79.01] Ivon SHAW DO [facility] CPT-4: 11302 05/11/2018 ([id number]) NURSE/OUTPAT IENT VISIT EST Diagnosis: Personal history of diseases of the blood and blood-forming organs and certain disorders involving the immune mechanism[ICD10: Z86.2] Kristine ROWLAND [facility] CPT-4: 95543 04/30/2018 ([id number]) OFFICE/OUTPA TIENT VISIT EST Diagnosis: Acute sinusitis, unspecified[ICD10: J01.90] Ivon SHAW [facility] CPT-4: 52765 04/02/2018 ([id number]) NURSE/OUTPAT IENT VISIT EST Diagnosis: FLU VACCINE[ICD10: Z23] Diagnosis: Encounter for therapeutic drug level monitoring[ICD10: Z51.81] Diagnosis: group home (current) use of anticoagulants[ICD10: Z79.01] Kristine BRAMBILA DO [facility] CPT-4: 70543 03/24/2018 ([id number]) OFFICE/OUTPA TIENT VISIT EST Diagnosis: Other allergic rhinitis[ICD10: J30.89] Diagnosis: Migraine, unspecified, not intractable, without status migrainosus[ICD10: G43.909] Ivon BRAMBILA DO [facility] CPT-4: 79193 03/16/2018 ([id number]) NURSE/OUTPAT IENT VISIT EST Diagnosis: Encounter for therapeutic drug level monitoring[ICD10: Z51.81] Kristine BRAMBILA DO [facility] CPT-4: 88935 02/24/2018 OFFICE/OUTPATIENT SIT EST Diagnosis: Diarrhea, unspecified[ICD10: R19.7] Diagnosis: Abdominal distension (gaseous)[ICD10: R14.0] Diagnosis: Epigastric pain[ICD10: R10.13] Kristine BRAMBILA DO [facility] CPT-4: 99856 02/16/2018 ([id number]) NURSE/OUTPAT IENT VISIT EST Diagnosis: 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[ICD10: Z79.01] Diagnosis: Urinary tract infection, site not specified[ICD10: N39.0] Kristine BRAMBILA DO [facility] CPT-4: 13906 02/05/2018 ([id number]) NURSE/OUTPAT IENT VISIT EST Diagnosis: Urinary tract infection, site not specified[ICD10: N39.0] Kristine BRAMBILA DO [facility] CPT-4: 47966 01/29/2018 ([id number]) NURSE/OUTPAT IENT VISIT EST Diagnosis: Urinary tract infection, site not specified[ICD10: N39.0] Kristine BRAMBILA DO [facility] CPT-4: 49322 01/28/2018 ([id number]) OFFICE/OUTPA TIENT VISIT EST Diagnosis: Other allergic rhinitis[ICD10: J30.89] Diagnosis: Acute suppurative otitis media without spontaneous rupture of ear drum, right ear[ICD10: H66.001] Diagnosis: Contact with and (suspected) exposure to potentially hazardous body fluids[ICD10: Z77.21] Ivon BRAMBILA DO [facility] CPT-4: 29135 01/26/2018 ([id number]) OFFICE/OUTPA TIENT VISIT EST Diagnosis: Otalgia, left ear[ICD10: H92.02] Diagnosis: Other lesions of oral mucosa[ICD10: K13.79] Ivon SHAW DO [facility] CPT-4: 62667 01/01/2018 ([id number]) OFFICE/OUTPA TIENT VISIT EST Diagnosis: Acute suppurative otitis media with spontaneous rupture of ear drum, left ear[ICD10: H66.012] Diagnosis: Migraine, unspecified, not intractable, without status migrainosus[ICD10: G43.909] Ivon BRAMBILA DO [facility] CPT-4: 94225 12/25/2017 ([id number]) OFFICE/OUTPA TIENT VISIT EST Diagnosis: Acute pharyngitis, unspecified[ICD10: J02.9] Ivon SHAW [facility] CPT-4: 35736 12/11/2017 ([id number]) NURSE/OUTPAT IENT VISIT EST Diagnosis: Encounter for therapeutic drug level monitoring[ICD10: Z51.81] Diagnosis: Other specified abnormal immunological findings in serum[ICD10: R76.8] Diagnosis: Vitamin D deficiency, unspecified[ICD10: E55.9] Diagnosis: Tachycardia, unspecified[ICD10: R00.0] Kristine ROWLAND [facility] CPT-4: 74870 12/01/2017 ([id number]) PREV VISIT E ST AGE 40-64 Diagnosis: Encounter for general adult medical examination without abnormal findings[ICD10: Z00.00] Diagnosis: Encounter for gynecological examination (general) (routine) without abnormal findings[ICD10: Z01.419] Kristine BRAMBILA [facility] CPT-4: 62017 11/05/2017 ([id number]) OFFICE/OUTPA TIENT VISIT EST Diagnosis: Other specified abnormal immunological findings in serum[ICD10: R76.8] Kristine BRAMBILA [facility] CPT-4: 75617 10/14/2017 ([id number]) OFFICE/OUTPA TIENT VISIT EST Diagnosis: Pain in right shoulder[ICD10: M25.511] Diagnosis: 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[ICD10: Z79.01] Ivon BALL [facility] CPT-4: 45334 10/06/2017 OFFICE/OUTPATIENT SIT EST Diagnosis: Paresthesia of [...] Vitamin D deficiency, unspecified[ICD10: E55.9] Kristine ROWLAND [facility] CPT-4: 54735 10/01/2017 ([id number]) OFFICE/OUTPA TIENT VISIT EST Diagnosis: Burn of second degree of back of left hand, initial encounter[ICD10: T23.262A] Ivon BRAMBILA DO [facility] CPT-4: 14171 09/10/2017 ([id number]) OFFICE/OUTPA TIENT VISIT EST Diagnosis: Pain in unspecified joint[ICD10: M25.50] Diagnosis: Dysuria[ICD10: R30.0] Kristine BRAMBILA [facility] CPT-4: 46449 09/05/2017 ([id number]) OFFICE/OUTPA TIENT VISIT EST Diagnosis: group home (current) use of anticoagulants[ICD10: Z79.01] Kristine BRAMBILA [facility] CPT-4: 99096 09/04/2017 ([id number]) OFFICE/OUTPA TIENT VISIT EST Diagnosis: Fever, unspecified[ICD10: R50.9] Diagnosis: Encounter for therapeutic drug level monitoring[ICD10: Z51.81] Kristine BRAMBILA [facility] CPT-4: 23882 08/07/2017 OFFICE/OUTPATIENT SIT EST Diagnosis: Acute upper respiratory infection, unspecified[ICD10: J06.9] Diagnosis: Gastro-esophageal reflux disease without esophagitis[ICD10: K21.9] Diagnosis: Fever, unspecified[ICD10: R50.9] Ivon BRAMBILA DO [facility] CPT-4: 48463 07/15/2017 ([id number]) OFFICE/OUTPA TIENT VISIT EST Diagnosis: Otitis media, unspecified, left ear[ICD10: H66.92] Diagnosis: Localized enlarged lymph nodes[ICD10: R59.0] Kristine ROWLAND [facility] CPT-4: 44282 07/04/2017 ([id number]) OFFICE/OUTPA TIENT VISIT EST Diagnosis: Localized enlarged lymph nodes[ICD10: R59.0] Diagnosis: Otitis media, unspecified, left ear[ICD10: H66.92] Kristine TERRELLR [facility] CPT-4: 77211 07/02/2017 OFFICE/OUTPATIENT SIT EST Diagnosis: Otitis media, unspecified, left ear[ICD10: H66.92] Diagnosis: Localized enlarged lymph nodes[ICD10: R59.0] Ivon BALL ER [facility] CPT-4: 58246 07/01/2017 ([id number]) OFFICE/OUTPA TIENT VISIT EST Diagnosis: Encounter for therapeutic drug level monitoring[ICD10: Z51.81] Kristine BRAMBILA [facility] CPT-4: 59951 06/19/2017 OFFICE/OUTPATIENT SIT EST Diagnosis: Pneumonia, unspecified organism[ICD10: J18.9] Diagnosis: Insomnia, unspecified[ICD10: G47.00] Ivon BALL ER [facility] CPT-4: 02942 05/27/2017 OFFICE/OUTPATIENT SIT EST Diagnosis: Insomnia, unspecified[ICD10: G47.00] Diagnosis: Other chronic pain[ICD10: G89.29] Ivon BALL ER [facility] CPT-4: 08527 05/20/2017 ([id number]) OFFICE/OUTPA TIENT VISIT EST Diagnosis: Headache[ICD10: R51] Diagnosis: Diplopia[ICD10: H53.2] Kristine BALLER [facility] CPT-4: 35406 04/22/2017 ([id number]) OFFICE/OUTPA TIENT VISIT EST Diagnosis: Acute sinusitis, unspecified[ICD10: J01.90] Kristine TERRELLR [facility] CPT-4: 25432 04/01/2017 ([id number]) OFFICE/OUTPA TIENT VISIT EST Diagnosis: Pelvic and perineal pain[ICD10: R10.2] Diagnosis: group home (current) use of anticoagulants[ICD10: Z79.01] Diagnosis: Hematuria, unspecified[ICD10: R31.9] Kristine TERRELLR [facility] CPT-4: 36196 02/10/2017 ([id number]) OFFICE/OUTPA TIENT VISIT EST Diagnosis: Acute pharyngitis, unspecified[ICD10: J02.9] Diagnosis: Cervicalgia[ICD10: M54.2] Diagnosis: Localized enlarged lymph nodes[ICD10: R59.0] Diagnosis: Acute stress reaction[ICD10: F43.0] Kristine TERRELLR [facility] CPT-4: 88359 02/05/2017 ([id number]) OFFICE/OUTPA TIENT VISIT EST Diagnosis: Acute pharyngitis due to other specified organisms[ICD10: J02.8] Kristine BRAMBILA DO [facility] CPT-4: 76868 02/03/2017 ([id number]) OFFICE/OUTPA TIENT VISIT EST Diagnosis: Acute pharyngitis due to other specified organisms[ICD10: J02.8] 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] Kristine TERRELLR [facility] CPT-4: 57612 01/13/2017 ([id number]) OFFICE/OUTPA TIENT VISIT EST Diagnosis: Encounter for therapeutic drug level monitoring[ICD10: Z51.81] Kristine BRAMBILA [facility] CPT-4: 07466 12/18/2016 ([id number]) OFFICE/OUTPA TIENT VISIT EST Diagnosis: Pain in unspecified joint[ICD10: M25.50] Kristine TERRELLR [facility] CPT-4: 06450 11/27/2016 ([id number]) OFFICE/OUTPA TIENT VISIT EST Diagnosis: URI, ACUTE[ICD10: J06.9] Diagnosis: Dysuria[ICD10: R30.0] Diagnosis: group home (current) use of anticoagulants[ICD10: Z79.01] Diagnosis: Encounter for therapeutic drug level monitoring[ICD10: Z51.81] Kristine BRAMBILA [facility] CPT-4: 11359 08/27/2016 ([id number]) OFFICE/OUTPA TIENT VISIT EST Diagnosis: 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[ICD10: Z79.01] Diagnosis: Abnormal levels of other serum enzymes[ICD10: R74.8] Kristine ROWLAND DO [facility] CPT-4: 61780 05/24/2016 ([id number]) OFFICE/OUTPA TIENT VISIT EST Diagnosis: Urinary tract infection, site not specified[ICD10: N39.0] Nayeli BRAMBILA DO [facility] CPT-4: 91536 04/23/2016 ([id number]) OFFICE/OUTPA TIENT VISIT EST Diagnosis: Abrasion, left lower leg, initial encounter[ICD10: S80.812A] Nayeli BRAMBILA DO [facility] CPT-4: 62854 04/17/2016 ([id number]) OFFICE/OUTPA TIENT VISIT EST Diagnosis: group home (current) use of anticoagulants[ICD10: Z79.01] Kristine BRAMBILA DO [facility] CPT-4: 33555 04/11/2016 ([id number]) OFFICE/OUTPA TIENT VISIT EST Diagnosis: Migraine, unspecified, not intractable, without status migrainosus[ICD10: G43.909] Diagnosis: Fibromyalgia[ICD10: M79.7] Kristine BRAMBILA DO [facility] CPT-4: 61552 03/12/2016 ([id number]) OFFICE/OUTPA TIENT VISIT EST Diagnosis: 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[ICD10: Z79.01] Kristine BRAMBILA DO [facility] CPT-4: 63696 02/12/2016 ([id number]) OFFICE/OUTPA TIENT VISIT EST Diagnosis: 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[ICD10: Z79.01] Kristine BRAMBILA DO [facility] CPT-4: 81089 02/01/2016 ([id number]) OFFICE/OUTPA TIENT VISIT EST Diagnosis: Encounter for therapeutic drug level monitoring[ICD10: Z51.81] Kristine Patty BALL [facility] CPT-4: 58222 01/22/2016 OFFICE/OUTPATIENT SIT EST Diagnosis: Encounter for therapeutic drug level monitoring[ICD10: Z51.81] Diagnosis: group home (current) use of anticoagulants[ICD10: Z79.01] Diagnosis: Acute tonsillitis, unspecified[ICD10: J03.90] Juleejesus Slater KRISTINE ROWLAND [facility] CPT-4: 89811 11/10/2015 ([id number]) OFFICE/OUTPA TIENT VISIT EST Diagnosis: Acute tonsillitis, unspecified[ICD10: J03.90] Nayeli YULINE Luisa BRAMBILA [facility] CPT-4: 84315 11/09/2015 ([id number]) OFFICE/OUTPA TIENT VISIT EST Diagnosis: Localized swelling, mass and lump, neck[ICD10: R22.1] Diagnosis: Pain in left hip[ICD10: M25.552] Diagnosis: Pain in right hip[ICD10: M25.551] Kristine TERRELL [facility] CPT-4: 92607 10/10/2015 ([id number]) OFFICE/OUTPA TIENT VISIT EST Diagnosis: Other fatigue[ICD10: R53.83] Diagnosis: Localized swelling, mass and lump, neck[ICD10: R22.1] Diagnosis: Generalized enlarged lymph nodes[ICD10: R59.1] Diagnosis: 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[ICD10: Z79.01] Diagnosis: Candidiasis, unspecified[ICD10: B37.9] Diagnosis: Other chronic pain[ICD10: G89.29] Diagnosis: Acute upper respiratory infection, unspecified[ICD10: J06.9] Nayeli YULINE Luisa BALL [facility] CPT-4: 44110 10/02/2015 ([id number]) OFFICE/OUTPA TIENT VISIT EST Diagnosis: group home (current) use of anticoagulants[ICD10: Z79.01] Diagnosis: Other fatigue[ICD10: R53.83] Kristine BALL [facility] CPT-4: 84106 09/29/2015 ([id number]) OFFICE/OUTPA TIENT VISIT EST Diagnosis: group home (current) use of anticoagulants[ICD10: Z79.01] Kristine BRAMBILA DO [facility] CPT-4: 26644 07/27/2015 ([id number]) OFFICE/OUTPA TIENT VISIT EST Diagnosis: Fibromyalgia[ICD10: M79.7] Diagnosis: Tachycardia, unspecified[ICD10: R00.0] Kristine ROWLAND [facility] CPT-4: 70231 07/10/2015 ([id number]) OFFICE/OUTPA TIENT VISIT EST Diagnosis: Encounter for therapeutic drug level monitoring[ICD10: Z51.81] Diagnosis: Dysuria[ICD10: R30.0] Kristine BRAMBILA DO [facility] CPT-4: 52713 06/30/2015 OFFICE/OUTPATIENT SIT EST Diagnosis: Scar conditions and fibrosis of skin[ICD10: L90.5] Diagnosis: Acute sinusitis, unspecified[ICD10: J01.90] Meli McintyreSarayjoe YULINE S. Sera ANTWON [facility] CPT-4: 04702 06/27/2015 ([id number]) OFFICE/OUTPA TIENT VISIT EST Diagnosis: group home (current) use of anticoagulants[ICD10: Z79.01] Kristine BRAMBILA [facility] CPT-4: 64149 06/21/2015 OFFICE/OUTPATIENT SIT EST Diagnosis: Fibromyalgia[ICD10: M79.7] Kristine BRAMBILA DO [facility] CPT-4: 23701 06/08/2015 ([id number]) OFFICE/OUTPA TIENT VISIT EST Diagnosis: Dysuria[ICD10: R30.0] Kristine BRAMBILA DO [facility] CPT-4: 39039 05/31/2015 OFFICE/OUTPATIENT SIT NEW Diagnosis: Localized enlarged lymph nodes[ICD10: R59.0] Diagnosis: Benign intracranial hypertension[ICD10: G93.2] Diagnosis: Personal history of pulmonary embolism[ICD10: Z86.711] Diagnosis: 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[ICD10: Z79.01] Diagnosis: Tachycardia, unspecified[ICD10: R00.0Noreen THOMPSON CPT-4: 92294 05/24/2015 Plan of Care Planned Activity Notes [...] ICD-10 : R05 01/19/2019 Visit Diagnosis Plan: group home (current ) use of anticoagulants Discussion: pt/inr ordered ICD-9 : V58.61 ICD-10 : Z79.01 01/19/2019 Visit Diagnosis Plan: Abnormal levels of other serum e nzymes Discussion: updated LFT ordered. ICD-9 : 790.5 ICD-10 : R74.8 01/19/2019 Visit Diagnosis Plan: Acute pharyngitis due to other specified organisms Discussion: rapid strep neg. ICD-9 : 462 ICD-10 : J02.8 01/19/2019 Appointment: Ivon Sky [address] [place] [address] ACUTE ILLNESS 01/19/2019 Visit Diagnosis Plan: Otalgia, [...] ICD-10 : R53.83 01/04/2019 Appointment: Ivon Sky [address] [place] [address] ACUTE ILLNESS 01/04/2019 Appointment: Kristine Brambila WPtel: [phone] [id number] 12/18/2018 Appointment: Kristine Brambila WPtel: [address] [place] [address] ACUTE ILLNESS 12/16/2018 Visit Diagnosis Plan: Benign [...] : R53.83 12/03/2018 Appointment: Kristine Brambila WPtel: [facility] [address] ACUTE ILLNESS 12/03/2018 Visit Diagnosis Plan: Enlarged [...] : J02.9 12/02/2018 Appointment: Ivon Sky [address] FOLLOW UP 12/02/2018 Visit Diagnosis Plan: group home (current ) use of anticoagulants Discussion: [...] : H66.002 11/30/2018 Appointment: Ivon Sky [address] ACUTE ILLNESS 11/30/2018 Patient Education: Coumadin- [employer] Coupon [id number] [email or web address] Completed 11/30/2018 Appointment: Kristine Brambila WPtel: [address] [place] [address] [place] UA 11/20/2018 Appointment: Kristine Brambila WPtel: [address] [place] [address] [place] INJECTION 11/12/2018 Visit Diagnosis Plan: Streptococcal pharyngitis Discussion: Strep A- positive ASO titer today along with CBC. Rocephin 1 gram. RTC tmrw for another injection. Patient states understanding. ICD-9 : 034.0 ICD-10 : J02.0 11/11/2018 Appointment: Lulu Navarro [facility] Jaqueline [address] ACUTE ILLNESS 11/11/2018 Appointment: Kristine Brambila WPtel: [address] [place] [address] ACUTE ILLNESS 10/27/2018 Appointment: Kristine Brambila WPtel: [address] [place] [address] US INJECTION 10/09/2018 Visit Diagnosis Plan: Acute recurrent maxillary sinusi tis Discussion: Rocephin 1 gram administered in clinic- patient tolerated well. Continue with supportive treatment at home as well. Tylenol for headache. Salt water gargles and sinus rinses advised. Patient states understanding. ICD-9 : 461.0 ICD-10 : J01.01 10/08/2018 Appointment: Lulu Navarro [facility] [place] [address] US INJECTION 10/08/2018 Visit Diagnosis Plan: Acute recurrent maxillary sinusi tis Discussion: Rocephin- 1 gram administered in clinic. Patient tolerated well. Sinus rinses encouraged. Rest and fluids. Tylenol or Motrin for pain and fever. FU PRN. Patient states understanding. ICD-9 : 461.0 ICD-10 : J01.01 10/07/2018 Appointment: Lulu Navarro [address] [place], [place] [id number] ACUTE ILLNESS 10/07/2018 Visit Diagnosis Plan: Dizziness [...] ICD-10 : R42 09/25/2018 Appointment: Lulu Navarro [address] [place], [place] [id number] ACUTE ILLNESS 09/25/2018 Appointment: Kristine Brambila WPtel: [address] [place], [place] [phone] UA 09/10/2018 Visit Diagnosis [...] : R22.1 09/08/2018 Appointment: Kristine Brambila WPtel: [address] [place], [place] [phone] ACUTE ILLNESS 09/08/2018 Patient Education: cefdinir- OptimizeRX Coupon [id number] [email or web address]://www.[email or web address] What Wear/samplemd/resources/getResource/61/[email or web address]-[email or web address] Completed 09/08/2018 Appointment: Kristine Brambila WPtel: [phone] [facility] LAB 08/14/2018 Visit Diagnosis Plan: Acute [...] ICD-10 : H92.02 07/23/2018 Appointment: Ivon Sky [address] [place] [address] ACUTE ILLNESS 07/23/2018 Patient Education: cyclobenzaprine- Opti mizeRX Coupon [id number] https://www.[email or web address]/samplemd/resources/getResource/61/[email or web address].pdf Completed 07/23/2018 Visit Diagnosis Plan: Streptococcal infe ction, unspecified site Discussion: Pen V K Sees dentist today t o assess tooth ICD-9 : 041.00 ICD-10 : A49.1 07/08/2018 Appointment: Kristine Brambila WPtel: [address] [place], [place] [phone] FOLLOW UP 07/08/2018 Patient Education: penicillin V potassiu m- OptimizeRX Coupon [id number] https://www.Simph[employer]/samplemd/resources/getResource/61/[email or web address].pdf Completed 07/08/2018 Visit Diagnosis Plan: Localized enlarged [...] ICD-10 : K04.6 07/02/2018 Appointment: Ivon Sky [address] [place] [address] ACUTE ILLNESS 07/02/2018 Appointment: Kristine Brambila WPtel: [address] [place] [address] LAB 06/22/2018 Appointment: Kristine Brambila WPtel: [address] [place] [address] US UA 06/17/2018 Visit Diagnosis Plan: Acute sinusitis, unspecified Discussion: dc keflex. start cefdinir daily for 10 days. saline up nares prn congestion. if no improvement after antibiotics or worsening symtpoms, call clinic. ICD-9 : 461.9 ICD-10 : J01.90 06/02/2018 Appointment: Ivon Sky [address] [place] [address] ACUTE ILLNESS 06/02/2018 Appointment: Kristine Brambila WPtel: [address] [place] [address] US INJECTION 05/12/2018 Visit Diagnosis Plan: group home (current ) use of anticoagulants Discussion: [...] : H70.002 05/11/2018 Appointment: Ivon Sky [address] [place], [place] [address] FOLLOW UP 05/11/2018 Appointment: Kristine Brambila WPtel: [address] [place], [place] [phone] LAB 04/30/2018 Visit Diagnosis Plan: Acute sinusitis, unspecified Discussion: 40 mg kenalog given to patient in office. clindamycin prescribed for patient to take as directed. instructed to stop nasal sprays due to worsening pain/irritation and only use saline rinse up nares for now. call with any new or worsening symptoms. ICD-9 : 461.9 ICD-10 : J01.90 04/02/2018 Appointment: Ivon Sky [address] [place] [address] ACUTE ILLNESS 04/02/2018 Patient Education: Patient Medication Summary Completed 04/02/2018 Appointment: Kristine Brambila WPtel: [address] [place] [address] LAB 03/24/2018 Patient Education: Patient Medication Summary [...] ICD-10 : G43.909 03/16/2018 Appointment: Ivon Sky [address] [place] [address] ACUTE ILLNESS 03/16/2018 Patient Education: Patient Medication Summary Completed 03/16/2018 Appointment: Kristine Brambila WPtel: [address] [place] [phone] LAB 02/24/2018 Patient Education: Patient Medication Summary Completed 02/24/2018 Appointment: Kristine Brambila WPtel: [address] [place], [place] [phone] US RESCHEDULED 02/18/2018 Visit Diagnosis Plan: Abdominal distension (gaseous) Discussion: Wanda Restora Rx 1 daily Follow Up: 2 weeks ICD-9 : 787.3 ICD-10 : R14.0 02/16/2018 Visit Diagnosis Plan: Epigastric pain Discussion: Pepcid BID ICD-9 : 789.06 ICD-10 : R10.13 02/16/2018 Visit Diagnosis Plan: Diarrhea, unspecified Discussion: Wanda ICD-9 : 787.91 ICD-10 : R19.7 02/16/2018 Appointment: Kristine Brambila WPtel: [address] [place], [place] [id number] ACUTE ILLNESS 02/16/2018 Patient Education: Patient Medication Summary Completed 02/16/2018 Appointment: Kristine Brambila WPtel: [address] [place], [place] [id number] US INJECTION 02/05/2018 Patient Education: Patient Medication Summary Completed 02/05/2018 Appointment: Kristine Brambila WPtel: [address] [place], [place] [id number] [place] INJECTION 01/29/2018 Patient Education: Patient Medication Summary Completed 01/29/2018 Appointment: Kristine Brambila WPtel: [address] [place], [place] [id number] US INJECTION 01/28/2018 Patient Education: Patient Medication [...] ICD-10 : H66.001 01/26/2018 Appointment: Ivon Sky [address] [place] [address] ACUTE ILLNESS 01/26/2018 Patient Education: Patient Medication [...] ICD-10 : K13.79 01/01/2018 Appointment: Ivon Sky [address] [place] [address] ACUTE ILLNESS 01/01/2018 Patient Education: Patient Medication [...] ICD-10 : G43.909 12/25/2017 Appointment: Ivon Sky [address] [place] [address] ACUTE ILLNESS 12/25/2017 Patient Education: Patient Medication Summary Completed 12/25/2017 Visit Diagnosis Plan: Acute pharyngitis, unspecified Discussion: rapid strep negative. rocephin injection given in office. clindamycin prescribed as well to start tomorrow for 10 days. increase fluid intake. call or rtc next week if new or worsening symptoms. ICD-9 : 462 ICD-10 : J02.9 12/11/2017 Appointment: Ivon Sky [address] [place] [address] ACUTE ILLNESS 12/11/2017 Patient Education: Patient Medication Summary Completed 12/11/2017 Appointment: Kristine Brambila WPtel: [address] [place], [place] [phone] LAB 12/01/2017 Patient Education: Patient Medication Summary Completed 12/01/2017 Visit Diagnosis Plan: Encounter for gyne cological examination (general) (routine) without abnormal findings Discussion: Pap done as has a history of choriocarcinoma Had mammogram last month ICD-9 : V72.31 ICD-10 : Z01.419 11/05/2017 Appointment: Kristine Brambila WPtel: [address] [place] [address] Annual Well Visit 11/05/2017 Patient Education: Patient Medication Summary Completed 11/05/2017 Appointment: Kristine Brambila WPtel: [address] [place], [place] [phone] LAB 10/14/2017 Patient Education: Patient Medication Summary Completed 10/14/2017 Care Plan: X-RAY EXAM OF SHOULDER right LOINC : 95860-6 Pending 10/07/2017 Visit Diagnosis Plan: Pain in right shoulder Discussion: xray ordered of right shoulder to rule out fracture. 40 mg kenalog given as one shot to assist with pain. 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 ICD-9 : V58.61 ICD-10 : Z79.01 10/06/2017 Appointment: Ivon Sky [facility]66[facility] ACUTE ILLNESS 10/06/2017 Patient Education: Patient Medication [...] : I73.00 10/01/2017 Appointment: Kristine Brambila WPtel: [address] [place] [address] ACUTE ILLNESS 10/01/2017 Patient Education: Patient Medication [...] ICD-10 : T23.262A 09/10/2017 Appointment: Ivon Sky [address] [place] [address] ACUTE ILLNESS 09/10/2017 Patient Education: Patient Medication Summary Completed 09/10/2017 Appointment: Kristine Brambila WPtel: [address] [place] [address] INJECTION 09/05/2017 Patient Education: Patient Medication Summary Completed 09/05/2017 Appointment: Kristine Brambila WPtel: [address] [place] [address] LAB 09/04/2017 Patient Education: Patient Medication Summary Completed 09/04/2017 Appointment: Kristine Brambila WPtel: [address] [place] [address] LAB 08/07/2017 Patient Education: Patient Medication Summary Completed 08/07/2017 Patient Education: Patient Medication Summary Completed 07/21/2017 Care Plan: CHEST X-RAY 2VW FRONTAL&LATL LOINC : 97157-6 Pending 07/21/2017 Visit Diagnosis Plan: Acute upper [...] : K21.9 07/15/2017 Appointment: Ivon Sky [address] [facility] ACUTE ILLNESS 07/15/2017 Patient Education: Patient Medication Summary Completed 07/15/2017 Appointment: Kristine Brambila WPtel: [address] [place], [place] [phone] US INJECTION 07/04/2017 Patient Education: Patient Medication Summary Completed 07/04/2017 Appointment: Kristine Brambila WPtel: [address] [place], [place] [phone] US INJECTION 07/02/2017 Patient Education: Patient Medication [...] : H66.92 07/01/2017 Appointment: Ivon Sky [address] [facility] ACUTE ILLNESS 07/01/2017 Patient Education: Patient Medication Summary Completed 07/01/2017 Care Plan: US EXAM OF HEAD AND NECK Pending 07/01/2017 Appointment: Kristine Brambila WPtel: [address] [place], [place] [phone] US LAB 06/19/2017 Patient Education: Patient Medication [...] ICD-10 : J18.9 05/27/2017 Appointment: Ivon Sky [address] [place] [address] ACUTE ILLNESS 05/27/2017 Patient Education: Patient Medication [...] : G47.00 05/20/2017 Appointment: Ivon Sky [address] [facility]6[address] ACUTE ILLNESS 05/20/2017 Patient Education: Patient Medication Summary Completed 05/20/2017 Visit Diagnosis Plan: Headache Discu ssion: Discussed likely Migraine Discussed MRI results Discussed changing acetazolamide to HCTZ ICD-9 : 784.0 ICD-10 : R51 04/22/2017 Visit Diagnosis Plan: Diplopia Discu ssion: Updated dilated eye exam ICD-9 : 368.2 ICD-10 : H53.2 04/22/2017 Appointment: Kristine Brambilatel[phone] [facility] [facility] 04/22/2017 Patient Education: Patient Medication Summary Completed 04/22/2017 Appointment: Kristine Brambila WPtel: [facility]2 [facility] US RESCHEDULED 04/07/2017 Visit Plan: Saline nasal flushes pr n. Tylenol/Motrin prn headache. Notify if persists/symptoms worsening. 04/01/2017 Visit Plan: Saline nasal flushes pr n. Tylenol/Motrin prn headache. Notify if persists/symptoms worsening. 04/01/2017 Visit NOS Plan: Plan Notes: Saline nasal flushes prn. Tyle... 04/01/2017 Visit Diagnosis Plan: Acute sinusitis, unspecified Discussion: Kenalog 40mg IM x1 Decadron/Garamycin Nose Paradox Mix Has appointment on April 28 with ENT ICD-9 : 461.9 ICD-10 : J01.90 04/01/2017 Appointment: Kristine Brambila WPtel: [address] [place], [place] [phone] ACUTE ILLNESS 04/01/2017 Patient Education: Patient Medication Summary Completed 04/01/2017 Referral: Serjio Lugo WPtel: [address]66[facility] Referral Appointment Requested 03/20/2017 Patient Education: Patient Medication Summary Completed 02/27/2017 Care Plan: CT ABDOMEN W/O DYE abd/pe lvis stone search LOINC : 41759-3 Pending 02/27/2017 Patient Education: Patient Medication Summary Completed 02/12/2017 Care Plan: MRI NECK SPINE W/O DYE LOINC : 58357-6 Pending 02/12/2017 Appointment: Kristine Brambila WPtel: [address] [place], [place] [phone] LAB 02/10/2017 Patient Education: Patient Medication Summary [...] : M54.2 02/05/2017 Appointment: Kristine Brambila WPtel: [address] [place], [place] [phone] ACUTE ILLNESS 02/05/2017 Patient Education: Patient Medication Summary Completed 02/05/2017 Care Plan: Referral Order SNOMED-CT : [id number] Pending 02/05/2017 Appointment: Kristine Brambila WPtel: [address] [place], [place] [phone] THROAT SWAB 02/03/2017 Patient Education: Patient Medication Summary Completed 02/03/2017 Appointment: Kristine Brambila WPtel: [address] [place], [place] [phone] 01/13 canceled~sl CANCELED 01/28/2017 Visit Plan: Supportive [...] : J02.8 01/13/2017 Appointment: Kristine Brambila WPtel: [facility] [facility] 01/13/2017 Patient Education: Patient Medication Summary Completed 01/13/2017 Appointment: Kristine Brambila WPtel: [facility] [facility] 12/18/2016 Patient Education: Patient Medication Summary Completed 12/18/2016 Visit Diagnosis Plan: Pain in unspecified joint Discussion: Will retry methotrexate since has worked in past to greatly reduce patient's pain--4 tabs week one then 5 tabs week 2 then 6 tabs weekly and fwup in 6 weeks ICD-9 : 719.49 ICD-10 : M25.50 11/27/2016 Appointment: Kristine Brambila WPtel: [facility] / lm~sl 11/26 confimed~sl MEDICATION REVIEW 11/27/2016 Patient Education: Patient Medication Summary Completed 11/27/2016 Visit Plan: Supportive care. Rest, Fluids, Tylenol/Motrin prn fever or bodyaches. Notify if worsening symptoms. 08/27/2016 Visit Plan: Supportive care. Rest, Fluids, Tylenol/Motrin prn fever or bodyaches. Notify if worsening symptoms. 08/27/2016 Visit NOS Plan: Plan Notes: Support gauri care. Rest, Fluids... 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 Discussion: PT/INR drawn ICD-9 : V58.61 ICD-10 : Z79.01 08/27/2016 Visit Diagnosis Plan: Dysuria Discus steven: Culture urine ICD-9 : 788.1 ICD-10 : R30.0 08/27/2016 Visit Diagnosis Plan: URI, ACUTE Dis cussion: Supportive care ICD-9 : 465.9 ICD-10 : J06.9 08/27/2016 Appointment: Kristine Brambila WPtel: [address] [place], [place] [phone] 08/26 confirmed`sl MEDICATION REVIEW 08/27/2016 Patient Education: Patient Medication Summary Completed 08/27/2016 Appointment: Kristine Brambila WPtel: [address] [place] [address] BP CHECK 07/08/2016 Patient Education: Patient Medication Summary Completed 07/08/2016 Appointment: Kristine Brambila WPtel: [address] [place], [place] [phone] LAB 05/24/2016 Patient Education: Patient Medication Summary Completed 05/24/2016 Appointment: Kristine Brambila WPtel: [address] [place] [address] 04/24 will not be able to get [...] with culture results 04/23/2016 Appointment: Nayeli Anderson [address] [place] [address] ACUTE ILLNESS 04/23/2016 Patient Education: Patient Medication [...] add oral abx 04/17/2016 Appointment: Nayeli Anderson [address] [place] [address] ACUTE ILLNESS 04/17/2016 Patient Education: Patient Medication Summary Completed 04/17/2016 Patient Education: [facility] - Saving AutoInj - 18-64 - Dynamic Portal ID Completed 04/17/2016 Appointment: Kristine Brambila WPtel: [address] [place], [place] [phone] LAB 04/11/2016 Patient Education: [...] for migraines 03/12/2016 Appointment: Kristine Brambila WPtel: [address] [place] [address] 03/12 confirmed-sp FOLLOW UP 03/12/2016 Patient Education: Patient Medication Summary Completed 03/12/2016 Appointment: Kristine Brambila WPtel: [address] [place], [place] [phone] LAB 02/12/2016 Patient Education: Patient Medication Summary Completed 02/12/2016 Appointment: Kristine Brambila WPtel: [address] [place], [place] [phone] LAB 02/01/2016 Patient Education: Patient Medication Summary Completed 02/01/2016 Appointment: Kristine Brambila WPtel: [address] [place], [place] [phone] LAB 01/22/2016 Patient Education: Patient [...] improvement 11/10/2015 Appointment: Julee Slater WPtel: [phone] [facility] ACUTE ILLNESS 11/10/2015 Patient Education: Patient [...] care otherwise 11/09/2015 Appointment: Nayeli Anderson [address] ACUTE ILLNESS 11/09/2015 Patient Education: Patient Medication Summary Completed 11/09/2015 Referral: Maximiliano Neves WPtel: [phone] [id number] US Spoke with Sally at Dr. Ta's offic e. Patient is scheduled for 10/16/15 at 3:15pm. Demographics and notes have been faxed. Patient has been informed. 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 10/02/2015 Visit Plan: Labs [...] with Dr Brambila for next week for 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 10/02/2015 Appointment: Nayeli Anderson [address] [place] [address] ACUTE ILLNESS 10/02/2015 Patient Education: Patient Medication Summary Completed 10/02/2015 Patient Education: [facility] - Saving AutoInj - 18-64 - Dynamic Portal ID Completed 10/02/2015 Care Plan: US EXAM OF HEAD AND NECK Pending 10/02/2015 Appointment: Kristine Brambila WPtel: [address] [place] [address] US LAB 09/29/2015 Patient Education: Patient Medication Summary Completed 09/29/2015 Appointment: Kristine Brambila WPtel: [address] [place], [place] [phone] [place] LAB 07/27/2015 Patient Education: Patient Medication Summary Completed 07/27/2015 Visit Plan: Trial of Savella Did no t tolerate lyrica Did not tolerate cymbalta 07/10/2015 Appointment: Kristine Brambila WPtel: [address] [place], [place] [phone] 07/10 appt confirmed cn FOLLOW UP 07/10/2015 Patient Education: Patient Medication Summary Completed 07/10/2015 Appointment: Kristine Brambila WPtel: [address] [place], [place] [phone] [facility] 06/30/2015 Patient Education: Patient Medication Summary Completed 06/30/2015 Visit Plan: Recommended Vitamin E o il topically bid to area of scar. Currently taking Amoxicillin for sinusitis. Recommend Flonase nasal spray 06/27/2015 Visit Plan: Recommended Vitamin E o il topically bid to area of scar. Currently taking Amoxicillin for sinusitis. Recommend Flonase nasal spray 06/27/2015 Appointment: Meli Hatch WPtel: [address] [place], [place] [phone] ACUTE ILLNESS 06/27/2015 Patient Education: Patient Medication Summary Completed 06/27/2015 Appointment: Meli Hatch WPtel: [address] [place], [place] [phone] 06/22/15 appt confirmed and she will drea ng new insurance card ACUTE ILLNESS 06/26/2015 Appointment: Kristine Brambila WPtel: [address] [place], [place] [phone] [facility] 06/21/2015 Patient Education: Patient Medication Summary Completed 06/21/2015 Visit Plan: Add cymbalta at 30mg da loli Repeat PT/INR in 2weeks Recheck 1mo Awaiting ID to reschedule 06/08/2015 Visit Plan: Add cymbalta at 30mg da loli Repeat PT/INR in 2weeks Recheck 1mo Awaiting ID to reschedule 06/08/2015 Appointment: Kristine Brambila WPtel: [address] [place], [place] [phone] 06/07 lm ~sl 06/08 confirmed ~sl FOLLOW UP 06/08/2015 Patient Education: Patient Medication Summary Completed 06/08/2015 Patient Education: [facility] - Saving AutoInj - Cymbalta - 18-64 - Dynamic Portal ID Completed 06/08/2015 Patient Education: [facility] - Saving AutoInj - 18-64 - Dynamic Portal ID Completed 06/08/2015 Appointment: Kristine Brambila WPtel: [address] [place], [place] [phone] [facility] 05/31/2015 Patient Education: Patient Medication Summary Completed 05/31/2015 Visit Plan: Check PT/INR today Stop ped Lyrica due to fluid retention Has appt. scheduled at [facility] with hematology and infectious disease 06/08 Follow-up appt. in 2 weeks following appt. at . 05/24/2015 Visit Plan: Check PT/INR today Stop ped Lyrica due to fluid retention Has appt. scheduled at [facility] with hematology and infectious disease 06/08 Follow-up appt. in 2 weeks following appt. at . 05/24/2015 Appointment: [facility] [facility] [facility] 05/24/2015 Patient Education: Patient Medication Summary Completed 05/24/2015 Patient Education: [facility] Saving AutoInj - 18-64 - Dynamic Portal ID Completed 05/24/2015 Referral: Annamarie Melo WPtel: [facility] [address] [facility] Referral Initiated Instructions Comment . Rapid [...] to fluid retention Has appt. scheduled at [facility] with hematology and infectious disease 06/08 Follow-up appt. in 2 weeks following appt. at . . Check PT/INR today Stopped Lyrica due to fluid retention Has appt. scheduled at 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 Labs ordered - [...] with Dr Brambila for next week for custodial management of pain . Recommended Vitami n [...]
--- OUTSIDE RECORDS SUMMARY | 2020-01-28 14:21 | XMS REPORT | CCD ---
Author Author Heydi Hatch APRN Organization [facility] Address [address] [place] [address] Phone Care Team Providers Care Refuge Worker Name Role Phone Kristine Brambila D.O., PP Unavailable CCM Unavailable Summary Purpose Interface Exchange Insurance Providers Payer name Policy type / Coverage type Covered republican ID Effective Begin Date Effective End Date Blue Cross Blue Shield Blue Cross/Bl ue Shield [id number] 2018 Un known Family History Family History data not found Social History Social History Element Codes Description Effective Dates Tobacco history SNOMED CT: 63902356 Current every day smoker 06/08/2015 Allergies, Adverse [...] 02/10/2017 Unknown Pelvic and perineal pain ICD-9: [id number] ICD-10: R10.2 Active 02/10/2017 Unknown Cervicalgia ICD-9: [...] 02/10/2017 Active Pelvic and perineal pain ICD-9: [id number] ICD-10: R10.2 02/10/2017 Active Cervicalgia ICD-9: 723.1 [...] Fill Instructions Diflucan 150 mg tablet RxNorm: 237263 Tablet(s) TABLET(S) 1 TABLET(S) PO QW NEEDED 01/28/2019 No Stop Date Active Vistaril 25 mg capsule RxNorm: 713439 1 Capsule(s) PO TID 01/27/2019 07/25/2019 Active ProAir HFA 90 mcg/ac tuation aerosol inhaler RxNorm: 046184 2 Puff(s) INH Q4H as needed 01/20/2019 No Stop Date Active Tessalon Perles 100 mg capsule RxNorm: 395830 1 Capsule(s) PO TID a s needed for cough 01/20/2019 No Stop Date Active doxycycline hyclate 100 mg capsule RxNorm: 8739039 1 Capsule(s) PO BID 01/20/2019 01/19/2019 In active doxycycline hyclate 100 mg capsule RxNorm: 5609974 1 Capsule(s) PO BID 01/20/2019 01/26/2019 In active Coumadin 5 mg tablet RxNorm: 534217 1 Tablet(s) PO QD (on Fri, , Fri, , Fri and Fri) 01/05/2019 06/09/2019 Active Generic For:COUMADIN 5MG TAB 05/25/2018 3:20:45 PM N O T I C E Last quantity doesn't match original quantity amoxicillin 500 mg c apsule RxNorm: 662476 1 Capsule(s) PO BID 01/05/2019 01/14/2019 Inactive amoxicillin 500 mg c apsule RxNorm: 707590 1 Capsule(s) PO BID 01/05/2019 01/04/2019 Inactive hydrocodone 10 mg-ac etaminophen 325 mg tablet RxNorm: 736728 1 Tablet(s) PO Q4-6H as needed for pain 01/01/2019 No Stop Date Active cyclobenzaprine 10 m g tablet RxNorm: 959826 1 TABLET(S) PO QD NEEDED 12/23/2018 06/20/2019 Ac tive Coumadin 5 mg tablet RxNorm: 584306 Tablet(s) TAKE 1 TABLET(S) BY MOUTH FRI, FRI, FRI, Friday12/23/2018 01/04/2019 Inactive Generic For:COUMADIN 5MG TA B 05/25/2018 3:20:45 PM N O T I C E Last quantity doesn't match original quantity Diflucan 150 mg tablet RxNorm: 995109 Tablet(s) TABLET(S) 1 TABLET(S) PO QW NEEDED 12/23/2018 01/27/2019 Inactive Vitamin D2 50,000 un it capsule RxNorm: 2364810 1 Capsule(s) PO QW 12/04/2018 03/03/2019 Active Medrol (Juan Francisco) 4 mg ta blets in a dose pack RxNorm: 715402 Tablet(s) PO as direc liane 12/04/2018 12/03/2018 In active Vitamin D2 50,000 un it capsule RxNorm: 3371244 1 Capsule(s) PO QW 12/04/2018 12/03/2018 Inactive Medrol (Juan Francisco) 4 mg ta blets in a dose pack RxNorm: 601347 Tablet(s) PO as direc liane 12/04/2018 01/19/2019 In active Zithromax Z-Juan Francisco 250 mg tablet RxNorm: 844953 Tablet(s) PO take as directed 12/02/2018 No Stop Date Active Vistaril 25 mg capsule RxNorm: 973551 Capsule(s) 1 Capsule(s) PO TID as needed for anxiety 11/30/2018 02/27/2019 Active Coumadin 5 mg tablet RxNorm: 602891 Tablet(s) TAKE 1 TABLET(S) BY MOUTH FRI, FRI, FRI, Friday11/30/2018 12/22/2018 Inactive Generic For:COUMADIN 5MG TA B 05/25/2018 3:20:45 PM N O T I C E Last quantity doesn't match original quantity Diflucan 150 mg tablet RxNorm: 229870 Tablet(s) TABLET(S) 1 TABLET(S) PO QW NEEDED 11/26/2018 12/22/2018 Inactive cholestyramine (with sugar) 4 gram oral powder RxNorm: 001663 1 UNIT DOSE PO QD 11/24/2018 02/21/2019 Ac tive acetazolamide 125 mg tablet RxNorm: 092911 1 Tablet(s) PO BID 11/24/2018 02/21/2019 Active cyclobenzaprine 10 m g tablet RxNorm: 613778 1 Tablet(s) PO QD as needed 11/17/2018 12/22/2018 In active hydrocodone 10 mg-ac etaminophen 325 mg tablet RxNorm: 095908 1 Tablet(s) PO Q4-6H as needed for pain 11/05/2018 01/31/2019 Inactive acetazolamide 125 mg tablet RxNorm: 814851 1 TABLET(S) PO BID 10/26/2018 11/23/2018 Inactive cholestyramine (with sugar) 4 gram oral powder RxNorm: 208581 1 UNIT DOSE PO QD 10/26/2018 11/23/2018 In active Coumadin 5 mg tablet RxNorm: 593544 TAKE 1 TABLET(S) BY MOUTH FRI, FRI, FRI, Friday10/26/2018 11/29/2018 Inactive Generic For:COUMADIN 5MG TAB 05/25/2018 3:20:45 PM N O T I C E Last quantity doesn't match original quantity Diflucan 150 mg tablet RxNorm: 675700 TABLET(S) 1 TABLET(S) PO QW NEEDED 10/26/2018 11/25/2018 In active hydrocodone 10 mg-ac etaminophen 325 mg tablet RxNorm: 328028 1 Tablet(s) PO Q4-6H as needed for pain 10/08/2018 11/04/2018 Inactive acetazolamide 125 mg tablet RxNorm: 041897 1 Tablet(s) PO BID 09/24/2018 10/23/2018 Inactive Coumadin 5 mg tablet RxNorm: 080283 TAKE 1 TABLET(S) BY MOUTH FRI, FRI, FRI, Friday09/24/2018 10/25/2018 Inactive Generic For:COUMADIN 5MG TAB 05/25/2018 3:20:45 PM N O T I C E Last quantity doesn't match original quantity Diflucan 150 mg tablet RxNorm: 838728 Tablet(s) 1 Tablet(s) PO QW as needed 09/24/2018 10/25/2018 In active cyclobenzaprine 10 m g tablet RxNorm: 119755 1 Tablet(s) PO QD as needed 09/24/2018 11/16/2018 In active Vistaril 25 mg capsule RxNorm: 460013 1 Capsule(s) PO TID as needed for anxiet y 09/24/2018 11/29/2018 In active cholestyramine (with sugar) 4 gram oral powder RxNorm: 105753 1 Unit Dose PO QD 09/24/2018 10/23/2018 In active Pyridium 200 mg tablet RxNorm: 4225378 1 Tablet(s) PO TID 09/10/2018 09/19/2018 Inactive Pyridium 200 mg tablet RxNorm: 3679151 1 Tablet(s) PO TID 09/10/2018 09/09/2018 Inactive hydrocodone 10 mg-ac etaminophen 325 mg tablet RxNorm: 641307 1 Tablet(s) PO Q4-6H as needed for pain 09/08/2018 10/07/2018 Inactive cefdinir 300 mg capsule RxNorm: 530378 1 Capsule(s) PO BID 09/08/2018 09/21/2018 Inactive hydrocodone 10 mg-ac etaminophen 325 mg tablet RxNorm: 355619 1 Tablet(s) PO Q4-6H as needed for pain 08/13/2018 09/07/2018 Inactive cyclobenzaprine 10 m g tablet RxNorm: 343126 1 Tablet(s) PO QD as needed 07/23/2018 09/23/2018 In active Diflucan 150 mg tablet RxNorm: 537439 Tablet(s) 1 Tablet(s) PO QW as needed 07/23/2018 09/23/2018 In active Ciprodex 0.3 %-0.1 % ear drops,suspension RxNorm: 551001 4 Drop(s) left otic ( ear) BID 07/23/2018 07/29/2018 Inactive hydrocodone 10 mg-ac etaminophen 325 mg tablet RxNorm: 010486 1 Tablet(s) PO Q4-6H as needed for pain 07/16/2018 08/12/2018 Inactive penicillin V potassi um 500 mg tablet RxNorm: 326609 1 Tablet(s) PO Q6H 07/08/2018 07/17/2018 In active cyclobenzaprine 10 m g tablet RxNorm: 619690 1 Tablet(s) PO QD as needed 06/22/2018 07/22/2018 In active Vistaril 25 mg capsule RxNorm: 061520 1 Capsule(s) PO TID as needed for anxiet y 06/22/2018 09/23/2018 In active cholestyramine (with sugar) 4 gram oral powder RxNorm: 845250 1 Unit Dose PO QD 06/22/2018 09/23/2018 In active hydrocodone 10 mg-ac etaminophen 325 mg tablet RxNorm: 134170 1 Tablet(s) PO Q4-6H as needed for pain 06/17/2018 07/15/2018 Inactive cefdinir 300 mg capsule RxNorm: 732034 1 Capsule(s) PO BID 06/02/2018 06/11/2018 Inactive Diflucan 150 mg tablet RxNorm: 907528 Tablet(s) 1 Tablet(s) PO QW as needed 06/02/2018 07/22/2018 In active Coumadin 5 mg tablet RxNorm: 876585 TAKE 1 TABLET(S) BY MOUTH FRI, FRI, Friday05/25/2018 07/15/2018 Inactive Generic For:COUMADIN 5MG TAB 05/25/2018 3:20:45 PM N O T I C E Last quantity doesn't match original quantity Imitrex 50 mg tablet RxNorm: 573184 Tablet(s) 1 Tablet(s) PO at headache. re peat in 2 hours if no relief. no more than 2 tabs per day 05/19/2018 No Stop Date Active cholestyramine (with sugar) 4 gram oral powder RxNorm: 300440 1 Unit Dose PO QD 05/19/2018 11/14/2018 In active Vistaril 25 mg capsule RxNorm: 156463 1 Capsule(s) PO TID 05/19/2018 11/14/2018 Inactive Coumadin 5 mg tablet RxNorm: 889153 Tablet(s) TAKE 1 TABLET(S) BY MOUTH FRI, FRI, FRI, Friday05/19/2018 05/24/2018 Inactive Generic For:COUMADIN 5MG TA B N O T I C E Last quantity doesn't match original quantity acetazolamide 125 mg tablet RxNorm: 826585 1 Tablet(s) PO BID 05/19/2018 09/23/2018 Inactive cyclobenzaprine 10 m g tablet RxNorm: 711709 1 Tablet(s) PO QD as needed 05/19/2018 11/17/2018 In active Coumadin 7.5 mg tablet RxNorm: 065649 1 Tablet(s) PO QD , , 05/19/2018 01/04/2019 In active ketorolac 10 mg tablet RxNorm: 895032 1 Tablet(s) PO QHS as needed 05/11/2018 No Stop Date Active promethazine 12.5 mg tablet RxNorm: 511286 1 Tablet(s) PO Q6H as needed 04/23/2018 04/22/2018 In active acetazolamide 125 mg tablet RxNorm: 967380 1 Tablet(s) PO BID 04/23/2018 05/18/2018 Inactive Coumadin 5 mg tablet RxNorm: 346987 TAKE 1 TABLET(S) BY MOUTH FRI, FRI, FRI, Friday04/23/2018 05/18/2018 Inactive Generic For:COUMADIN 5MG TAB N O T I C E Last quantity doesn't match original quantity Imitrex 50 mg tablet RxNorm: 816333 1 Tablet(s) PO at headache. repeat in 2 hours if no relief. no more than 2 tabs per day 04/23/2018 05/18/2018 Inactive cyclobenzaprine 10 m g tablet RxNorm: 114761 1 Tablet(s) PO QD as needed 04/23/2018 05/18/2018 In active clindamycin HCl 300 mg capsule RxNorm: 350920 1 Capsule(s) PO TID 04/02/2018 04/11/2018 Inactive hydrocodone 10 mg-ac etaminophen 325 mg tablet RxNorm: 010209 1 Tablet(s) PO Q4-6H as needed for pain 03/24/2018 06/16/2018 Inactive promethazine 12.5 mg tablet RxNorm: 983566 1 Tablet(s) PO Q6H 03/23/2018 04/23/2018 Inactive Imitrex 50 mg tablet RxNorm: 639909 1 Tablet(s) PO at headache. repeat in 2 hours if no relief. no more than 2 tabs per day 03/23/2018 04/22/2018 Inactive Diflucan 150 mg tablet RxNorm: 397921 1 Tablet(s) PO QW as needed 03/23/2018 06/01/2018 Inactive Coumadin 5 mg tablet RxNorm: 699876 Tablet(s) 1 Tablet(s) PO Fri, Fri, Fri, Sun 03/23/2018 04/22/2018 In active Imitrex 100 mg tablet RxNorm: 783455 Tablet(s) PO take one tablet at sign of headache and repeat in 2 hours if ineffective 03/16/2018 04/01/2018 Inactive ondansetron HCl 4 mg tablet RxNorm: 843319 1 Tablet(s) PO Q4H as needed for nausea 02/24/2018 04/01/2018 In active hydrocodone 10 mg-ac etaminophen 325 mg tablet RxNorm: 553614 1 Tablet(s) PO Q4-6H as needed for pain 02/24/2018 03/23/2018 Inactive Coumadin 5 mg tablet RxNorm: 482825 Tablet(s) 1 Tablet(s) PO Mon, Wed, Fri, Sun 02/20/2018 03/22/2018 In active promethazine 12.5 mg tablet RxNorm: 315825 1 Tablet(s) PO Q6H 02/20/2018 03/22/2018 Inactive Pepcid 40 mg tablet RxNorm: 360653 1 Tablet(s) PO BID for stomach 02/16/2018 03/17/2018 In active Flagyl 500 mg tablet RxNorm: 539116 1 Tablet(s) PO TID 02/16/2018 02/25/2018 Inactive Imitrex 50 mg tablet RxNorm: 527392 1 Tablet(s) PO at headache. repeat in 2 hours if no relief. no more than 2 tabs per day 01/27/2018 03/15/2018 Inactive Coumadin 5 mg tablet RxNorm: 635268 1 Tablet(s) PO Mon, Wed, Fri, Sun 01/27/2018 02/20/2018 In active amoxicillin 875 mg t ablet RxNorm: 282653 1 Tablet(s) PO BID 01/26/2018 02/04/2018 Inactive Imitrex 50 mg tablet RxNorm: 586972 1 Tablet(s) PO at headache. repeat in 2 hours if no relief. no more than 2 tabs per day 01/26/2018 03/22/2018 Inactive cyclobenzaprine 10 m g tablet RxNorm: 613276 1 Tablet(s) PO QD as needed 01/23/2018 03/23/2018 In active promethazine 12.5 mg tablet RxNorm: 660575 1 Tablet(s) PO Q6H 01/23/2018 02/19/2018 Inactive Diflucan 150 mg tablet RxNorm: 458619 1 Tablet(s) PO QW as needed 01/22/2018 03/22/2018 Inactive acetazolamide 125 mg tablet RxNorm: 194687 1 Tablet(s) PO BID 01/22/2018 04/21/2018 Inactive Imitrex 50 mg tablet RxNorm: 849210 1 Tablet(s) PO at headache. repeat in 2 hours if no relief. no more than 2 tabs per day 01/02/2018 01/25/2018 Inactive Ciprodex 0.3 %-0.1 % ear drops,suspension RxNorm: 882977 4 Drop(s) otic (ear) BID 01/01/2018 01/07/2018 In active Coumadin 7.5 mg tablet RxNorm: 508798 1 Tablet(s) PO QD Tu, Th, 12/29/2017 05/18/2018 In active Coumadin 5 mg tablet RxNorm: 955906 1 Tablet(s) PO Mon, Wed, Fri, Sun 12/29/2017 01/26/2018 In active cyclobenzaprine 10 m g tablet RxNorm: 842493 1 Tablet(s) PO QD as needed 12/29/2017 01/22/2018 In active clindamycin HCl 300 mg capsule RxNorm: 119719 1 Capsule(s) PO TID 12/26/2017 12/25/2017 Inactive Imitrex 50 mg tablet RxNorm: 545565 1 Tablet(s) PO at headache. repeat in 2 hours if no relief. no more than 2 tabs per day 12/26/2017 01/01/2018 Inactive clindamycin HCl 300 mg capsule RxNorm: 389077 1 Capsule(s) PO TID 12/26/2017 01/04/2018 Inactive Zithromax Z-Juan Francisco 250 mg tablet RxNorm: 538131 Tablet(s) PO take as directed 12/25/2017 12/25/2017 In active promethazine 12.5 mg tablet RxNorm: 026859 1 Tablet(s) PO Q6H 12/25/2017 01/22/2018 Inactive clindamycin HCl 300 mg capsule RxNorm: 985038 1 Capsule(s) PO TID 12/11/2017 12/17/2017 Inactive Vistaril 25 mg capsule RxNorm: 848144 1 Capsule(s) PO TID as needed for anxiet y 12/04/2017 05/18/2018 In active cholestyramine (with sugar) 4 gram oral powder RxNorm: 179135 1 Unit Dose PO QD 12/04/2017 05/18/2018 In active Coumadin 7.5 mg tablet RxNorm: 906356 1 Tablet(s) PO QD 12/04/2017 12/28/2017 Inactive Coumadin 5 mg tablet RxNorm: 523157 1 Tablet(s) PO Friday through Friday12/04/2017 12/28/2017 In active hydrocodone 10 mg-ac etaminophen 325 mg tablet RxNorm: 296040 1 Tablet(s) PO Q4-6H as needed for pain 12/01/2017 02/23/2018 Inactive hydrocodone 10 mg-ac etaminophen 325 mg tablet RxNorm: 922620 1 Tablet(s) PO Q4-6H as needed for pain 11/03/2017 11/30/2017 Inactive cyclobenzaprine 10 m g tablet RxNorm: 077708 1 Tablet(s) PO QD as needed 10/30/2017 12/28/2017 In active cholestyramine (with sugar) 4 gram oral powder RxNorm: 342401 1 Unit Dose PO QD 10/30/2017 11/28/2017 In active amoxicillin 875 mg t ablet RxNorm: 167983 1 Tablet(s) PO BID 10/08/2017 10/07/2017 Inactive amoxicillin 875 mg t ablet RxNorm: 384395 1 Tablet(s) PO BID 10/08/2017 10/17/2017 Inactive penicillin V potassi um 500 mg tablet RxNorm: 012496 1 Tablet(s) PO BID 10/06/2017 10/07/2017 In active hydrocodone 10 mg-ac etaminophen 325 mg tablet RxNorm: 826387 1 Tablet(s) PO Q4-6H as needed for pain 10/06/2017 11/02/2017 Inactive hydrocodone 10 mg-ac etaminophen 325 mg tablet RxNorm: 086759 1 Tablet(s) PO Q4-6H as needed for pain 10/06/2017 12/31/2018 Inactive Vigamox 0.5 % eye drops RxNorm: 366769 1 Drop(s) ophthalmic (eye) TID ONLY ADMI NISTER IF INFECTION 10/03/2017 10/02/2017 Inactive Vigamox 0.5 % eye drops RxNorm: 450028 1 Drop(s) ophthalmic (eye) TID ONLY ADMI NISTER IF INFECTION 10/03/2017 10/09/2017 Inactive cholestyramine (with sugar) 4 gram oral powder RxNorm: 110850 1 Unit Dose PO QD 09/23/2017 10/30/2017 In active acetazolamide 125 mg tablet RxNorm: 678096 1 Tablet(s) PO BID 09/23/2017 12/21/2017 Inactive Coumadin 5 mg tablet RxNorm: 565325 1 Tablet(s) PO QD FRIDAY THROUGH Friday09/17/2017 11/04/2017 In active mupirocin 2 % topica l ointment RxNorm: 024675 1 Application TOP TID 09/10/2017 11/04/2017 Inactive hydrocodone 10 mg-ac etaminophen 325 mg tablet RxNorm: 915682 1 Tablet(s) PO Q4-6H as needed for pain 09/08/2017 10/05/2017 Inactive Questran 4 gram powd er for susp in a packet RxNorm: 136905 MIX ONE PACKET IN 6 O UNCES OF APPLE SAUCE OR OTHER SOFT FOOD AND EAT ONCE DAILY 09/02/2017 11/04/2017 Inactive Diflucan 150 mg tablet RxNorm: 338358 1 Tablet(s) PO QW as needed 08/14/2017 01/21/2018 Inactive hydrocodone 10 mg-ac etaminophen 325 mg tablet RxNorm: 507880 1 Tablet(s) PO Q4-6H as needed for pain 08/11/2017 09/07/2017 Inactive Tamiflu 75 mg capsule RxNorm: 678253 1 Capsule(s) PO QD 08/11/2017 08/10/2017 Inactive Tamiflu 75 mg capsule RxNorm: 985556 1 Capsule(s) PO QD 08/11/2017 08/20/2017 Inactive Coumadin 5 mg tablet RxNorm: 092773 1 Tablet(s) PO QD FRIDAY THROUGH Friday07/22/2017 09/16/2017 In active Coumadin 5 mg tablet RxNorm: 452369 TAKE ONE TABLET BY MOUTH ONCE DAILY THROUGH Friday07/16/2017 07/21/2017 Inactive cyclobenzaprine 10 m g tablet RxNorm: 061780 1 Tablet(s) PO QD as needed 07/15/2017 10/30/2017 In active hydrocodone 10 mg-ac etaminophen 325 mg tablet RxNorm: 390389 1 Tablet(s) PO Q4-6H as needed for pain 07/14/2017 08/10/2017 Inactive warfarin 5 mg tablet RxNorm: 998010 1 Tablet(s) PO Fri Sat Sun-patie nt is due for PT/INR 06/18/2017 07/15/2017 Inactive Questran Light 4 gra m powder for susp in a packet RxNorm: 4791438 1 PO QD 06/18/2017 11/04/2017 In active cyclobenzaprine 10 m g tablet RxNorm: 688623 1 Tablet(s) PO QD as needed 06/18/2017 07/14/2017 In active hydrocodone 10 mg-ac etaminophen 325 mg tablet RxNorm: 421714 1 Tablet(s) PO Q4-6H as needed for pain 06/18/2017 07/13/2017 Inactive Lunesta 1 mg tablet RxNorm: 689383 1 Tablet(s) PO QHS as needed 05/27/2017 06/25/2017 Inactive Zithromax Z-Juan Francisco 250 mg tablet RxNorm: 292510 1 Tablet(s) PO Take a s directed 05/27/2017 11/04/2017 In active ProAir HFA 90 mcg/ac tuation aerosol inhaler RxNorm: 170199 2 Puff(s) INH Q4H 05/27/2017 01/19/2019 In active ProAir HFA 90 mcg/ac tuation aerosol inhaler RxNorm: 909938 2 Puff(s) INH Q4H 05/27/2017 05/26/2017 In active promethazine 6.25 mg -codeine 10 mg/5 mL syrup RxNorm: 160757 5 Milliliter(s) PO Q4 H as needed 05/27/2017 11/04/2017 Inactive Diflucan 150 mg tablet RxNorm: 783985 1 Tablet(s) PO QW as needed 05/26/2017 05/25/2017 Inactive cyclobenzaprine 10 m g tablet RxNorm: 648947 1 Tablet(s) PO QD as needed 05/20/2017 06/18/2017 In active Lunesta 2 mg tablet RxNorm: 190890 1 Tablet(s) PO QHS 05/20/2017 05/27/2017 Inactive Zithromax Z-Juan Francisco 250 mg tablet RxNorm: 051551 Tablet(s) PO As Direc liane 05/12/2017 05/19/2017 In active cyclobenzaprine 5 mg tablet RxNorm: 640676 1 Tablet(s) PO QPM 03/28/2017 05/19/2017 Inactive Vistaril 25 mg capsule RxNorm: 047048 1 Capsule(s) PO TID as needed for anxiet y 03/28/2017 09/23/2017 In active Questran 4 gram powd er for susp in a packet RxNorm: 068732 1 Unit(s) PO QD 03/06/2017 06/18/2017 In active Cipro 500 mg tablet RxNorm: 434635 1 Tablet(s) PO BID 02/27/2017 02/26/2017 Inactive Pyridium 200 mg tablet RxNorm: 9362947 1 Tablet(s) PO TID for bladder spasms 02/27/2017 03/31/2017 In active Cipro 500 mg tablet RxNorm: 459148 1 Tablet(s) PO BID 02/27/2017 03/05/2017 Inactive Levsin 0.125 mg tablet RxNorm: 3253473 1 Tablet(s) PO QID as needed for spasm 02/25/2017 11/04/2017 In active tamsulosin 0.4 mg ca psule RxNorm: 998950 1 Capsule(s) PO QPM 02/25/2017 03/26/2017 Inactive tamsulosin 0.4 mg ca psule RxNorm: 536989 1 Capsule(s) PO QPM 02/25/2017 02/24/2017 Inactive Pyridium 100 mg tablet RxNorm: 9006656 1 Tablet(s) PO TID as needed 02/21/2017 03/31/2017 In active acetazolamide 125 mg tablet RxNorm: 834008 1 Tablet(s) PO BID 02/07/2017 09/23/2017 Inactive Questran 4 gram powd er for susp in a packet RxNorm: 167815 1 Unit(s) PO QD 02/06/2017 03/06/2017 In active cyclobenzaprine 5 mg tablet RxNorm: 730508 1 Tablet(s) PO QPM 02/05/2017 03/27/2017 Inactive BuSpar 5 mg tablet RxNorm: 704870 1 Tablet(s) PO BID 02/03/2017 03/31/2017 Inactive Diflucan 150 mg tablet RxNorm: 124496 1 Tablet(s) PO QW as needed 01/15/2017 05/26/2017 Inactive Valtrex 1 gram tablet RxNorm: 499484 1 Tablet(s) PO TID 01/13/2017 01/19/2017 Inactive Vistaril 25 mg capsule RxNorm: 197376 1 Capsule(s) PO TID as needed for anxiet y 01/13/2017 03/27/2017 In active hydrocodone 10 mg-ac etaminophen 325 mg tablet RxNorm: 181531 1 Tablet(s) PO Q4-6H as needed for pain 01/13/2017 06/17/2017 Inactive Questran 4 gram powd er for susp in a packet RxNorm: 910601 1 Unit(s) PO QD 01/13/2017 09/23/2017 In active acetazolamide 125 mg tablet RxNorm: 412286 1 Tablet(s) PO BID 01/13/2017 02/06/2017 Inactive methotrexate (PF) 20 mg/0.4 mL subcutaneous auto-injector RxNorm: 1828827 Milliliter(s) SQ QW 12/26/2016 01/05/2017 Inactive Compazine 10 mg tablet RxNorm: 341595 1 Tablet(s) PO TID as needed for nausea 12/18/2016 11/04/2017 In active hydrocodone 10 mg-ac etaminophen 325 mg tablet RxNorm: 593159 1 Tablet(s) PO Q4-6H as needed for pain 12/17/2016 01/12/2017 Inactive Questran 4 gram powd er for susp in a packet RxNorm: 927094 1 Unit(s) PO QD 12/17/2016 01/13/2017 In active cyclobenzaprine 5 mg tablet RxNorm: 767881 1 Tablet(s) PO QPM 12/17/2016 02/05/2017 Inactive Questran Light 4 gra m powder for susp in a packet RxNorm: 9197804 1 PO QD 11/29/2016 06/17/2017 In active Zofran ODT 4 mg disi ntegrating tablet RxNorm: 341282 1 Tablet(s) PO Q4H as needed for nausea 11/29/2016 12/17/2016 Inactive methotrexate sodium 2.5 mg tablet RxNorm: 904633 4 Tablet(s) PO week 1 then 5 tablets po week 2 then 6 tablets weekly 11/27/2016 12/25/2016 Inactive warfarin 7.5 mg tablet RxNorm: 901010 1 Tablet(s) PO three times weekly 11/14/2016 03/31/2017 In active warfarin 7.5 mg tablet RxNorm: 062381 1 Tablet(s) PO three times weekly 11/13/2016 11/13/2016 In active Diflucan 150 mg tablet RxNorm: 008223 1 Tablet(s) PO QW as needed 11/05/2016 01/14/2017 Inactive Vistaril 25 mg capsule RxNorm: 807950 1 Capsule(s) PO TID as needed for anxiet y 11/04/2016 11/03/2016 In active Coumadin 5 mg tablet RxNorm: 594145 1 Tablet(s) PO Friday through Friday11/04/2016 06/18/2017 In active acetazolamide 125 mg tablet RxNorm: 654526 1 Tablet(s) PO BID 11/04/2016 01/13/2017 Inactive sumatriptan 100 mg t ablet RxNorm: 374502 1 Tablet(s) PO at hea dache onset. May repeat in 2 hours if headache remains 11/04/2016 11/04/2017 Inactive Vistaril 25 mg capsule RxNorm: 241422 1 Capsule(s) PO TID as needed for anxiet y 11/04/2016 01/12/2017 In active hydrocodone 10 mg-ac etaminophen 325 mg tablet RxNorm: 786698 1 Tablet(s) PO Q4-6H as needed for pain 11/04/2016 12/16/2016 Inactive Coumadin 5 mg tablet RxNorm: 342104 TAKE ONE TABLET BY MOUTH ON SUN., MON., WED., AND FRI., AND TAKE ONE AND ONE-HALF TABLETS TUE., TH., AND 10/16/2016 10/25/2016 In active Coumadin 5 mg tablet RxNorm: 665187 1 Tablet(s) PO Friday through Friday10/15/2016 11/03/2016 In active hydrocodone 10 mg-ac etaminophen 325 mg tablet RxNorm: 875925 1 Tablet(s) PO Q4-6H as needed for pain 10/14/2016 11/03/2016 Inactive hydrocodone 10 mg-ac etaminophen 325 mg tablet RxNorm: 356728 1 Tablet(s) PO Q4-6H as needed for pain 09/20/2016 10/13/2016 Inactive warfarin 7.5 mg tablet RxNorm: 490729 1 Tablet(s) PO three times weekly 09/20/2016 11/12/2016 In active Diflucan 150 mg tablet RxNorm: 159647 1 Tablet(s) PO QW as needed 08/20/2016 11/04/2016 Inactive acetazolamide 125 mg tablet RxNorm: 018469 1 Tablet(s) PO BID 08/20/2016 11/04/2016 Inactive Diflucan 150 mg tablet RxNorm: 249090 1 Tablet(s) PO QW as needed 08/20/2016 08/19/2016 Inactive Vistaril 25 mg capsule RxNorm: 529390 Capsule(s) TAKE ONE CAPSULE BY MOUTH THR EE TIMES DAILY NEEDED FOR ANXIETY 08/19/2016 11/04/2016 Inactive hydrocodone 10 mg-ac etaminophen 325 mg tablet RxNorm: 555334 1 Tablet(s) PO Q4-6H as needed for pain 08/05/2016 09/19/2016 Inactive Diflucan 150 mg tablet RxNorm: 605982 1 Tablet(s) PO QW as needed 07/19/2016 08/19/2016 Inactive tizanidine 4 mg tablet RxNorm: 817114 1-2 Tablet(s) PO QHS as needed for muscl e spasm and sleep 06/03/2016 06/10/2016 Inactive Questran Light 4 gra m powder for susp in a packet RxNorm: 4352491 1 PO QD 05/14/2016 08/11/2016 In active Macrobid 100 mg capsule RxNorm: 313265 1 Capsule(s) PO BID 04/23/2016 05/02/2016 Inactive mupirocin 2 % topica l ointment RxNorm: 996893 Apply topically to af fected area 2-3 times daily 04/17/2016 07/07/2016 Inactive Vistaril 25 mg capsule RxNorm: 621067 TAKE ONE CAPSULE BY MOUTH THREE TIMES DA LOLI NEEDED FOR ANXIETY 04/17/2016 11/04/2016 Inactive Diflucan 150 mg tablet RxNorm: 733225 1 Tablet(s) PO QW as needed 04/16/2016 07/18/2016 Inactive cyclobenzaprine 5 mg tablet RxNorm: 467695 TAKE ONE TABLET BY MO UTH ONCE DAILY IN THE EVENING 03/25/2016 12/17/2016 Inactive Pyridium 100 mg tablet RxNorm: 2940189 1 Tablet(s) PO TID as needed 03/20/2016 03/19/2016 In active Diflucan 150 mg tablet RxNorm: 005766 1 Tablet(s) PO QW as needed 03/20/2016 04/15/2016 Inactive Pyridium 100 mg tablet RxNorm: 3470719 1 Tablet(s) PO TID as needed 03/20/2016 08/26/2016 In active Diflucan 150 mg tablet RxNorm: 243333 1 Tablet(s) PO QW as needed 03/19/2016 03/19/2016 Inactive Coumadin 7.5 mg tablet RxNorm: 418917 1 Tablet(s) PO QD 03/14/2016 05/12/2016 Inactive acetazolamide 125 mg tablet RxNorm: 090650 1 Tablet(s) PO BID 02/28/2016 08/20/2016 Inactive Coumadin 5 mg tablet RxNorm: 576386 1 TABLET(S) PO QD THREE TIMES A WEEK AND 1 1/2 TAB (7.5MG) FOUR TIMES A WEEK 02/28/2016 03/13/2016 Inactive Questran Light 4 gra m powder for susp in a packet RxNorm: 4042478 1 PO QD 02/13/2016 05/12/2016 In active Diflucan 150 mg tablet RxNorm: 228811 1 Tablet(s) PO QW as needed 01/19/2016 03/11/2016 Inactive Diflucan 150 mg tablet RxNorm: 310945 1 Tablet(s) PO QW as needed 01/18/2016 01/18/2016 Inactive promethazine 25 mg t ablet RxNorm: 953710 1 Tablet(s) PO Q4H as needed for nausea 12/05/2015 12/17/2016 In active Imitrex 100 mg tablet RxNorm: 074423 1 Tablet(s) PO at headache onset and may repeat in 2 hours if needed 12/05/2015 03/31/2017 Inactive Diflucan 150 mg tablet RxNorm: 819056 1 Tablet(s) PO QW as needed 11/24/2015 01/17/2016 Inactive Diflucan 150 mg tablet RxNorm: 796873 1 Tablet(s) PO QW as needed 11/21/2015 11/23/2015 Inactive Coumadin 5 mg tablet RxNorm: 265874 1 Tablet(s) PO QD three times a week and 1 1/2 tab (7.5mg) four times a week 11/13/2015 02/01/2016 Inactive Questran Light 4 gra m powder for susp in a packet RxNorm: 306362 1 PO QD 11/13/2015 02/10/2016 In active acetazolamide 125 mg tablet RxNorm: 915464 1 Tablet(s) PO BID 11/13/2015 02/10/2016 Inactive amoxicillin 875 mg t ablet RxNorm: 537313 1 Tablet(s) PO BID 11/09/2015 11/18/2015 Inactive Coumadin 7.5 mg tablet RxNorm: 149490 1 Tablet(s) PO on and 10/26/2015 10/25/2015 In active Coumadin 7.5 mg tablet RxNorm: 927021 1 Tablet(s) PO on and 10/26/2015 11/12/2015 In active Coumadin 5 mg tablet RxNorm: 299525 1 Tablet(s) PO Friday, Friday, Friday and Friday. 1.5 tablets Friday, and Friday. 10/26/2015 10/25/2015 Inactive Coumadin 5 mg tablet RxNorm: 271300 1 Tablet(s) PO Friday, Friday, Friday , and Friday. Take 1 1/2 on Friday, and Friday10/26/2015 11/12/2015 Inactive Coumadin 7.5 mg tablet RxNorm: 474497 1 Tablet(s) PO on and 10/26/2015 10/26/2015 In active Coumadin 5 mg tablet RxNorm: 353960 1 Tablet(s) PO Friday, Friday, Friday and Friday. 1.5 tablets Friday, and Friday. 10/26/2015 02/14/2016 Inactive Vistaril 25 mg capsule RxNorm: 628001 1 Capsule(s) PO TID as needed for anxiet y 10/10/2015 04/06/2016 In active cyclobenzaprine 5 mg tablet RxNorm: 145547 1 Tablet(s) PO QPM 10/10/2015 03/24/2016 Inactive Vistaril 25 mg capsule RxNorm: 681450 1 Capsule(s) PO TID as needed for anxiet y 10/10/2015 10/09/2015 In active cyclobenzaprine 5 mg tablet RxNorm: 050387 1 Tablet(s) PO QPM 10/10/2015 10/09/2015 Inactive Coumadin 5 mg tablet RxNorm: 155745 1 Tablet(s) PO Friday, Friday, Friday and Friday. 1.5 tablets Friday, and Friday. 10/02/2015 10/01/2015 Inactive Coumadin 5 mg tablet RxNorm: 496318 1 Tablet(s) PO Friday, Friday, Friday and Friday. 1.5 tablets Friday, and Friday. 10/02/2015 10/25/2015 Inactive amoxicillin 500 mg t ablet RxNorm: 132211 1 Tablet(s) PO TID 10/02/2015 10/11/2015 Inactive hydrocodone 10 mg-ac etaminophen 325 mg tablet RxNorm: 463216 1 Tablet(s) PO Q4-6H as needed for pain 10/02/2015 08/04/2016 Inactive Diflucan 150 mg tablet RxNorm: 481236 1 Tablet(s) PO QW as needed 10/02/2015 10/01/2015 Inactive amoxicillin 500 mg t ablet RxNorm: 969112 1 Tablet(s) PO TID 10/02/2015 10/01/2015 Inactive Diflucan 150 mg tablet RxNorm: 682517 1 Tablet(s) PO QW as needed 10/02/2015 10/09/2015 Inactive Coumadin 5 mg tablet RxNorm: 510515 1 Tablet(s) PO Mon.,Wed.,Fri., Sat. and Sun. 09/14/2015 10/01/2015 Inactive acetazolamide 125 mg tablet RxNorm: 168057 1 Tablet(s) PO BID 09/14/2015 11/12/2015 Inactive hydrocodone 10 mg-ac etaminophen 325 mg tablet RxNorm: 911172 1 Tablet(s) PO Q4-6H as needed for pain 09/01/2015 10/01/2015 Inactive Vistaril 25 mg capsule RxNorm: 775997 1 Capsule(s) PO TID as needed for anxiet y 08/24/2015 09/22/2015 In active baclofen 10 mg tablet RxNorm: 370252 1/2 Tablet(s) PO QAM and 1 tablet at bed time 07/27/2015 10/09/2015 Inactive Vistaril 25 mg capsule RxNorm: 321003 1 Capsule(s) PO BID 07/24/2015 08/22/2015 Inactive Savella 12.5 mg (5)- 25 mg(8)-50mg(42) tablets in a dose pack RxNorm: 767892 Tablet(s) PO as directed 07/10/2015 07/26/2015 Inactive hydrocodone 10 mg-ac etaminophen 325 mg tablet RxNorm: 997682 1 Tablet(s) PO Q6H as needed for pain 06/29/2015 08/10/2015 Inactive Coumadin 7.5 mg tablet RxNorm: 655256 1 Tablet(s) PO on and 06/21/2015 10/25/2015 In active Vistaril 25 mg capsule RxNorm: 888184 1 Capsule(s) PO BID 06/20/2015 07/24/2015 Inactive Cymbalta 30 mg capsu le,delayed release RxNorm: 519022 1 Capsule(s) PO QD 06/08/2015 07/09/2015 In active Coumadin 5 mg tablet RxNorm: 767719 1 Tablet(s) PO Mon.,Wed.,Fri., Sat. and Sun. 06/08/2015 07/07/2015 Inactive Coumadin 5 mg tablet RxNorm: 772149 1 Tablet(s) PO Mon.,Wed.,Fri., Sat. and Sun. 05/24/2015 06/07/2015 Inactive Coumadin 7.5 mg tablet RxNorm: 652839 1 Tablet(s) PO on and 05/24/2015 06/20/2015 In active Coumadin 7.5 mg tablet RxNorm: 460254 1 Tablet(s) PO on Friday No Start Date Active Vitamin B12 1000mcg Tablet RxNorm: 1/2 Tablet(s) PO QD No Start Date Active Bystolic 10 mg tablet RxNorm: 504247 3 Tablet(s) PO QAM No Start Date Active Vitamin D3 5,000 uni t tablet RxNorm: 827269 1 Tablet(s) PO QD No Start Date Active Bystolic 5 mg tablet RxNorm: 077817 1 Tablet(s) PO NOON No Start Date Active sumatriptan 100 mg t ablet RxNorm: 466659 1 Tablet(s) PO at hea dache onset. May repeat in 2 hours if headache remains No Start Date 11/03/2016 Inactive warfarin 7.5 mg tablet RxNorm: 173695 1 Tablet(s) PO three times weekly No Start Date 09/19/2016 Inactive ondansetron HCl 4 mg tablet RxNorm: 853970 1 Tablet(s) PO Q4H as needed for nausea No Start Date 02/23/2018 Inactive Imitrex 100 mg tablet RxNorm: 338460 1 Tablet(s) PO at headache onset and may repeat in 2 hours if needed No Start Date 12/04/2015 Inactive Vitamin B12 1000mcg Tablet RxNorm: 1/2 Tablet(s) PO on , hur, Sat and Sun and 1 tab all other days No Start Date 04/01/2018 Inactive baclofen 10 mg tablet RxNorm: 290381 1/2 Tablet(s) PO QAM and 1 tablet at bed time No Start Date 07/26/2015 Inactive tizanidine 4 mg tablet RxNorm: 674455 1-2 Tablet(s) PO QHS as needed for muscl e spasm and sleep No Start Date 06/02/2016 Inactive Flexeril 5 mg tablet RxNorm: 869103 1 Tablet(s) PO QD No Start Date 10/09/2015 Inactive methotrexate (PF) 20 mg/0.4 mL subcutaneous auto-injector RxNorm: 3873789 SQ QW No Start Date 12/25/2016 Inactive Bystolic 5 mg tablet RxNorm: 826680 1 Tablet(s) PO as needed No Start Date 03/15/2018 Inactive Questran Light 4 gra m powder for susp in a packet RxNorm: 004272 1 PO QD No Start Date 11/12/2015 Inactive Bystolic 10 mg tablet RxNorm: 315781 1 Tablet(s) PO QAM No Start Date 11/04/2017 Inactive warfarin 5 mg tablet RxNorm: 953521 1 Tablet(s) PO Fri Sun No Start Date 06/17/2017 Inactive hydrocodone 10 mg-ac etaminophen 325 mg tablet RxNorm: 238067 1 Tablet(s) PO 4-6hou rs as needed for pain No Start Date 08/31/2015 Inactive cyclobenzaprine 5 mg tablet RxNorm: 249444 1 Tablet(s) PO QPM No Start Date 12/16/2016 Inactive Lovenox 100 mg/mL carmona bcutaneous syringe RxNorm: 174527 1 Milliliter(s) SQ QD No Start Date 06/07/2015 Inactive Levsin 0.125 mg tablet RxNorm: 2199006 1 Tablet(s) PO QID as needed for spasm No Start Date 02/24/2017 Inactive Savella 12.5 mg (5)- 25 mg(8)-50mg(42) tablets in a dose pack RxNorm: 117665 Tablet(s) PO as directed No Start Date 07/09/2015 Inactive Coumadin 10 mg tablet RxNorm: 411210 1 Tablet(s) PO QD No Start Date 2015 Inactive tramadol 50 mg tablet RxNorm: 336798 1 Tablet(s) PO TID as needed for pain No Start Date 03/31/2017 Inactive BuSpar 5 mg tablet RxNorm: 216485 1 Tablet(s) PO BID No Start Date 02/02/2017 Inactive Vistaril 25 mg capsule RxNorm: 988986 1 Capsule(s) PO BID No Start Date 06/19/2015 Inactive Tessalon Perles 100 mg capsule RxNorm: 616778 1 Capsule(s) PO TID a s needed for cough No Start Date 01/19/2019 Inactive promethazine 12.5 mg tablet RxNorm: 611294 1 Tablet(s) PO Q6H as needed No Start Date 04/22/2018 Inactive Coumadin 7.5 mg tablet RxNorm: 497311 1 Tablet(s) PO Fri and Friday No Start Date 03/13/2016 Inactive Imitrex 50 mg tablet RxNorm: 366552 1 Tablet(s) PO at headache. repeat in 2 hours if no relief. no more than 2 tabs per day No Start Date 12/25/2017 Inactive acetazolamide 125 mg tablet RxNorm: 538516 1 Tablet(s) PO BID No Start Date 09/13/2015 Inactive methotrexate (PF) 12 .5 mg/0.4 mL subcutaneous auto-injector RxNorm: 2490576 1 Milliliter(s) SQ QW No Start Date 03/31/2017 Inactive Bystolic 10 mg tablet RxNorm: 539018 1 Tablet(s) PO QAM No Start Date 03/25/2018 Inactive Zithromax Z-Juan Francisco 250 mg tablet RxNorm: 831361 Tablet(s) PO As Direc liane No Start Date 05/11/2017 Inactive Bystolic 20 mg tablet RxNorm: 408375 1 Tablet(s) PO QD No Start Date 03/15/2018 Inactive Questran 4 gram powd er for susp in a packet RxNorm: 406228 1 Unit(s) PO QD No Start Date 12/16/2016 Inactive Vitamin D3 1,000 uni t tablet RxNorm: 750805 1 Tablet(s) PO QD No Start Date 04/01/2018 Inactive Coumadin 5 mg tablet RxNorm: 228443 1 Tablet(s) PO Friday through Friday No Start Date 03/13/2016 Inactive warfarin 5 mg tablet RxNorm: 565338 1 Tablet(s) PO four days per week No Start Date 04/01/2018 Inactive ProAir HFA 90 mcg/ac tuation aerosol inhaler RxNorm: 253032 2 Puff(s) INH Q4H as needed No Start Date 01/19/2019 Inactive Bystolic 5 mg tablet RxNorm: 769756 1 Tablet(s) PO QHS No Start Date 03/25/2018 Inactive Compazine 10 mg tablet RxNorm: 530661 1 Tablet(s) PO TID as needed for nausea No Start Date 12/17/2016 Inactive Pyridium 200 mg tablet RxNorm: 4007412 1 Tablet(s) PO TID for bladder spasms No Start Date 02/26/2017 Inactive hydrocodone 10 mg-ac etaminophen 325 mg tablet RxNorm: 196341 1 Tablet(s) PO as nee ded No Start Date 06/28/2015 Inactive warfarin 7.5 mg tablet RxNorm: 994479 1 Tablet(s) PO on Friday and No Start Date 04/01/2018 Inactive promethazine 25 mg t ablet RxNorm: 670009 1 Tablet(s) PO Q4H as needed for nausea No Start Date 12/04/2015 Inactive Lovenox 30 mg/0.3 mL subcutaneous syringe RxNorm: 381604 1 Milliliter(s) SQ QD No Start Date 06/07/2015 Inactive Vitamin B12 1000mcg Tablet RxNorm: 1/2 Tablet(s) PO QD No Start Date 12/02/2017 Inactive Vitamin B12 1000mcg Tablet RxNorm: 1 Tablet(s) PO M/W/ QD No Start Date 12/02/2017 Inactive Medication [...] and perineal pain ICD-10: R10 .2 ICD-9: GYB8602 02/10/2017 Hematuria, unspecified ICD-10: R31.9 ICD-9: 599.70 [...] Code Result Date ANTI STREPTOLYSIN O TITER(ASO) 74397 ASO Titr 110 IU/mL 9 MYCOPLASMA ANTIBODY, IFA [id number] Myc[place]as Ab IgG 1:64 01/20/2019 MYCOPLASMA ANTIBODY, IFA 31003S6 Mycoplas Ab IgM <1:10 01/20/2019 MYCOPLASMA ANTIBODY, IFA 25184H9 Mycoplasma Intp See Below 01/20/2019 LEGIONELLA 1293161 Legio adore Ab <1:128 01/20/2019 HEPATIC FUNCTION PANEL A 05345 Total Protein 6.3 g/dL 01/19/2019 HEPATIC FUNCTION PANEL A 89480 AST 16 U/L 01/19/2019 HEPATIC FUNCTION PANEL A 50379 ALK PHOS 52 U/L 01/19/2019 HEPATIC FUNCTION PANEL A 68531 Bili Total 0.2 mg/dL 01/19/2019 HEPATIC FUNCTION PANEL A 09037 ALT 20 U/L 01/19/2019 HEPATIC FUNCTION PANEL A 42586 ALBUMIN 4.3 g/dL 01/19/2019 HEPATIC FUNCTION PANEL A 71659 Bili Direct 0.1 mg/dL 01/19/2019 PT 3067460 PT 27.5 Seconds 01/19/2019 PT 2023401 INR 2.6 01/19/2019 COMPLETE BLOOD COUNT 4381047 WBC 11.1 10e9/L 01/19/2019 COMPLETE BLOOD COUNT 4533862 RBC 4.14 10e12/L 9 COMPLETE BLOOD COUNT 5817583 HEMOGLOBIN 13.9 g/dL 01/19/2019 COMPLETE BLOOD COUNT 3131083 HEMATOCRIT 40.7 % 01/19/2019 COMPLETE BLOOD COUNT 0444434 MCV 98.3 fL 01/19/2019 COMPLETE BLOOD COUNT 4827911 MCH 33.6 pg 01/19/2019 COMPLETE BLOOD COUNT 6834439 MCHC 34.2 g/dL 01/19/2019 COMPLETE BLOOD COUNT 3597013 PLATELET COUNT 334 10e9/L 01/19/2019 COMPLETE BLOOD COUNT 8903530 Mean Plt Volume 8.9 fL 01/19/2019 COMPLETE BLOOD COUNT 1866465 Neut Auto 60.2 % 01/19/2019 COMPLETE BLOOD COUNT 8241775 Lymph Auto 32.5 % 01/19/2019 COMPLETE BLOOD COUNT 3417438 [place] Auto 6.1 % 01/19/2019 COMPLETE BLOOD COUNT 4488374 RDW 12.5 % 01/19/2019 COMPLETE BLOOD COUNT 2665971 Eos Auto 1.0 % 01/19/2019 COMPLETE BLOOD COUNT 8811869 Baso Auto 0.2 % 01/19/2019 COMPLETE BLOOD COUNT 4458424 Neutrophil Abs 6.68 10e9/L 01/19/2019 COMPLETE BLOOD COUNT 0985344 Lymphocyte Abs 3.61 10e9/L 01/19/2019 COMPLETE BLOOD COUNT 5165859 Monocyte Abs 0.68 10e9/L 01/19/2019 COMPLETE BLOOD COUNT 9795700 Eosinophil Abs 0.11 10e9/L 01/19/2019 COMPLETE BLOOD COUNT 1708408 RDW-SD 43.4 fL 01/19/2019 COMPLETE BLOOD COUNT 7951130 Basophil Abs 0.02 10e9/L 01/19/2019 COMPLETE BLOOD COUNT 7452516 WBC 7.4 10e9/L 12/18/2018 COMPLETE BLOOD COUNT 4627585 RBC 4.32 10e12/L 9 COMPLETE BLOOD COUNT 8023399 HEMOGLOBIN 14.2 g/dL 12/18/2018 COMPLETE BLOOD COUNT 6008476 HEMATOCRIT 42.0 % 12/18/2018 COMPLETE BLOOD COUNT 3625509 MCV 97.2 fL 12/18/2018 COMPLETE BLOOD COUNT 8490707 MCH 32.9 pg 12/18/2018 COMPLETE BLOOD COUNT 7721394 MCHC 33.8 g/dL 12/18/2018 COMPLETE BLOOD COUNT 5043565 PLATELET COUNT 273 10e9/L 12/18/2018 COMPLETE BLOOD COUNT 3521052 Mean Plt Volume 9.4 fL 12/18/2018 COMPLETE BLOOD COUNT 4901162 Neut Auto 57.7 % 12/18/2018 COMPLETE BLOOD COUNT 2933975 Lymph Auto 34.8 % 12/18/2018 COMPLETE BLOOD COUNT 0874244 [place] Auto 6.4 % 12/18/2018 COMPLETE BLOOD COUNT 5662571 RDW 12.6 % 12/18/2018 COMPLETE BLOOD COUNT 7451644 Eos Auto 0.8 % 12/18/2018 COMPLETE BLOOD COUNT 0308898 Baso Auto 0.3 % 12/18/2018 COMPLETE BLOOD COUNT 4986288 Neutrophil Abs 4.27 10e9/L 12/18/2018 COMPLETE BLOOD COUNT 7526299 Lymphocyte Abs 2.58 10e9/L 12/18/2018 COMPLETE BLOOD COUNT 5807679 Monocyte Abs 0.47 10e9/L 12/18/2018 COMPLETE BLOOD COUNT 5242026 Eosinophil Abs 0.06 10e9/L 12/18/2018 COMPLETE BLOOD COUNT 6503922 RDW-SD 43.8 fL 12/18/2018 COMPLETE BLOOD COUNT 6296968 Basophil Abs 0.02 10e9/L 12/18/2018 GFR CALC 0201093 GFR Non Afr Amr >60 mL/min 12/18/2018 GFR CALC 6372512 GFR Afr Amr >60 mL/min 12/18/2018 COMPREHENSIVE METABOLIC 56428 AST 33 U/L 12/18/2018 COMPREHENSIVE METABOLIC 95739 ALT 60 U/L 12/18/2018 COMPREHENSIVE METABOLIC 36504 BUN 9 mg/dL 12/18/2018 COMPREHENSIVE METABOLIC 83464 ALBUMIN 4.3 g/dL 12/18/2018 COMPREHENSIVE METABOLIC 67765 CHLORIDE 104 mmol/L 12/18/2018 COMPREHENSIVE METABOLIC 11431 Bili Total 0.3 mg/dL 12/18/2018 COMPREHENSIVE METABOLIC 14245 ALK PHOS 63 U/L 12/18/2018 COMPREHENSIVE METABOLIC 90411 SODIUM 139 mmol/L 12/18/2018 COMPREHENSIVE METABOLIC 18504 CREATININE 0.55 mg/dL 12/18/2018 COMPREHENSIVE METABOLIC 78769 CALCIUM 9.0 mg/dL 12/18/2018 COMPREHENSIVE METABOLIC 34661 POTASSIUM 3.9 mmol/L 12/18/2018 COMPREHENSIVE METABOLIC 98500 Total Protein 6.4 g/dL 12/18/2018 COMPREHENSIVE METABOLIC 02536 Glucose 83 mg/dL 12/18/2018 COMPREHENSIVE METABOLIC 74712 Bicarbonate 27 mmol/L 12/18/2018 COMPREHENSIVE METABOLIC 22297 AGAP 8 mmol/L 12/18/2018 ERYTHROCYTE SEDIMENTATION RATE 98790 Sed Rate 17 mm/hr 12/04/2018 MEAN GLUC 5796200 Calc M zach Gluc 108 mg/dL 12/03/2018 VITAMIN B 12 39060 VITAM IN B12 329 pg/mL 12/03/2018 COMPREHENSIVE METABOLIC 60265 AST 18 U/L 12/03/2018 COMPREHENSIVE METABOLIC 18123 ALT 21 U/L 12/03/2018 COMPREHENSIVE METABOLIC 35088 BUN 11 mg/dL 12/03/2018 COMPREHENSIVE METABOLIC 55546 ALBUMIN 4.5 g/dL 12/03/2018 COMPREHENSIVE METABOLIC 30887 CHLORIDE 106 mmol/L 12/03/2018 COMPREHENSIVE METABOLIC 39542 Bili Total 0.4 mg/dL 12/03/2018 COMPREHENSIVE METABOLIC 96601 ALK PHOS 49 U/L 12/03/2018 COMPREHENSIVE METABOLIC 29141 SODIUM 138 mmol/L 12/03/2018 COMPREHENSIVE METABOLIC 39296 CREATININE 0.61 mg/dL 12/03/2018 COMPREHENSIVE METABOLIC 87080 CALCIUM 9.2 mg/dL 12/03/2018 COMPREHENSIVE METABOLIC 40393 POTASSIUM 3.7 mmol/L 12/03/2018 COMPREHENSIVE METABOLIC 66962 Total Protein 6.8 g/dL 12/03/2018 COMPREHENSIVE METABOLIC 01455 Glucose 94 mg/dL 12/03/2018 COMPREHENSIVE METABOLIC 30616 Bicarbonate 25 mmol/L 12/03/2018 COMPREHENSIVE METABOLIC 95286 AGAP 7 mmol/L 12/03/2018 FREE T4 39734 T4 Free 0.96 ng/dL 12/03/2018 ASSAY TRIIODOTHYRONINE (T3) 91207 T3 Total 1.02 ng/mL 12/03/2018 GFR CALC 7309860 GFR Non Afr Amr >60 mL/min 12/03/2018 GFR CALC 5254810 GFR Afr Amr >60 mL/min 12/03/2018 GLYCOSYLATED HEMOGLOBIN TEST 70521 Hgb A1c 46783-9 5.4 % 12/03/2018 VITAMIN D TOTAL (25 HYDROXY) 45828 Vitamin D 25 [place] 11.1 ng/mL 12/03/2018 IRON 66267 Iron 106 ug/dL 12/03/2018 THYROID STIMULATING HORMONE 92441 TSH 0.978 uIU/mL 9 COMPLETE BLOOD COUNT 6168354 WBC 9.4 10e9/L 12/03/2018 COMPLETE BLOOD COUNT 6062557 RBC 4.41 10e12/L 9 COMPLETE BLOOD COUNT 4545648 HEMOGLOBIN 14.5 g/dL 12/03/2018 COMPLETE BLOOD COUNT 5125972 HEMATOCRIT 43.0 % 12/03/2018 COMPLETE BLOOD COUNT 1698456 MCV 97.5 fL 12/03/2018 COMPLETE BLOOD COUNT 5579681 MCH 32.9 pg 12/03/2018 COMPLETE BLOOD COUNT 9158347 MCHC 33.7 g/dL 12/03/2018 COMPLETE BLOOD COUNT 9269640 PLATELET COUNT 336 10e9/L 12/03/2018 COMPLETE BLOOD COUNT 2385900 Mean Plt Volume 9.1 fL 12/03/2018 COMPLETE BLOOD COUNT 4950696 Neut Auto 56.4 % 12/03/2018 COMPLETE BLOOD COUNT 4665875 Lymph Auto 35.6 % 12/03/2018 COMPLETE BLOOD COUNT 3070033 [place] Auto 6.8 % 12/03/2018 COMPLETE BLOOD COUNT 9472736 RDW 12.6 % 12/03/2018 COMPLETE BLOOD COUNT 7670115 Eos Auto 1.0 % 12/03/2018 COMPLETE BLOOD COUNT 0118053 Baso Auto 0.2 % 12/03/2018 COMPLETE BLOOD COUNT 7771431 Neutrophil Abs 5.30 10e9/L 12/03/2018 COMPLETE BLOOD COUNT 6740469 Lymphocyte Abs 3.35 10e9/L 12/03/2018 COMPLETE BLOOD COUNT 9789172 Monocyte Abs 0.64 10e9/L 12/03/2018 COMPLETE BLOOD COUNT 1928165 Eosinophil Abs 0.09 10e9/L 12/03/2018 COMPLETE BLOOD COUNT 6784596 RDW-SD 44.3 fL 12/03/2018 COMPLETE BLOOD COUNT 2964919 Basophil Abs 0.02 10e9/L 12/03/2018 FERRITIN 00977 FERRITIN 87.8 ng/mL 12/03/2018 PT 6016606 PT 23.1 Seconds 11/30/2018 PT 1409679 INR 2.0 11/30/2018 ANTI STREPTOLYSIN O TITER(ASO) 23688 ASO Titr 117 IU/mL 9 COMPLETE BLOOD COUNT 2469978 WBC 10.7 10e9/L 11/11/2018 COMPLETE BLOOD COUNT 3738196 RBC 4.42 10e12/L 9 COMPLETE BLOOD COUNT 1391966 HEMOGLOBIN 14.5 g/dL 11/11/2018 COMPLETE BLOOD COUNT 1062986 HEMATOCRIT 43.1 % 11/11/2018 COMPLETE BLOOD COUNT 3125845 MCV 97.5 fL 11/11/2018 COMPLETE BLOOD COUNT 0780379 MCH 32.8 pg 11/11/2018 COMPLETE BLOOD COUNT 9094708 MCHC 33.6 g/dL 11/11/2018 COMPLETE BLOOD COUNT 7534876 PLATELET COUNT 324 10e9/L 11/11/2018 COMPLETE BLOOD COUNT 8717228 Mean Plt Volume 9.2 fL 11/11/2018 COMPLETE BLOOD COUNT 3991588 Neut Auto 62.3 % 11/11/2018 COMPLETE BLOOD COUNT 9386835 Lymph Auto 30.8 % 11/11/2018 COMPLETE BLOOD COUNT 3705805 [place] Auto 6.1 % 11/11/2018 COMPLETE BLOOD COUNT 4624603 RDW 12.7 % 11/11/2018 COMPLETE BLOOD COUNT 2904975 Eos Auto 0.7 % 11/11/2018 COMPLETE BLOOD COUNT 6825854 Baso Auto 0.1 % 11/11/2018 COMPLETE BLOOD COUNT 7640719 Neutrophil Abs 6.67 10e9/L 11/11/2018 COMPLETE BLOOD COUNT 8124601 Lymphocyte Abs 3.30 10e9/L 11/11/2018 COMPLETE BLOOD COUNT 3447108 Monocyte Abs 0.65 10e9/L 11/11/2018 COMPLETE BLOOD COUNT 9292779 Eosinophil Abs 0.07 10e9/L 11/11/2018 COMPLETE BLOOD COUNT 9049721 RDW-SD 44.3 fL 11/11/2018 COMPLETE BLOOD COUNT 7526259 Basophil Abs 0.01 10e9/L 11/11/2018 PT 5302742 PT 23.4 Seconds 10/27/2018 PT 5425717 INR 2.0 10/27/2018 COMPLETE BLOOD COUNT 3334965 WBC 8.1 10e9/L 09/25/2018 COMPLETE BLOOD COUNT 4657326 RBC 4.37 10e12/L 9 COMPLETE BLOOD COUNT 4307477 HEMOGLOBIN 14.5 g/dL 09/25/2018 COMPLETE BLOOD COUNT 4612939 HEMATOCRIT 42.1 % 09/25/2018 COMPLETE BLOOD COUNT 0509456 MCV 96.3 fL 09/25/2018 COMPLETE BLOOD COUNT 3749483 MCH 33.2 pg 09/25/2018 COMPLETE BLOOD COUNT 2306717 MCHC 34.4 g/dL 09/25/2018 COMPLETE BLOOD COUNT 8221025 PLATELET COUNT 313 10e9/L 09/25/2018 COMPLETE BLOOD COUNT 5832131 Mean Plt Volume 9.2 fL 09/25/2018 COMPLETE BLOOD COUNT 4668659 Neut Auto 57.4 % 09/25/2018 COMPLETE BLOOD COUNT 9474608 Lymph Auto 35.0 % 09/25/2018 COMPLETE BLOOD COUNT 1959155 [place] Auto 6.3 % 09/25/2018 COMPLETE BLOOD COUNT 3846242 RDW 12.6 % 09/25/2018 COMPLETE BLOOD COUNT 7134110 Eos Auto 1.1 % 09/25/2018 COMPLETE BLOOD COUNT 2967738 Baso Auto 0.2 % 09/25/2018 COMPLETE BLOOD COUNT 8604897 Neutrophil Abs 4.65 10e9/L 09/25/2018 COMPLETE BLOOD COUNT 4380250 Lymphocyte Abs 2.84 10e9/L 09/25/2018 COMPLETE BLOOD COUNT 4132335 Monocyte Abs 0.51 10e9/L 09/25/2018 COMPLETE BLOOD COUNT 9850740 Eosinophil Abs 0.09 10e9/L 09/25/2018 COMPLETE BLOOD COUNT 7412714 RDW-SD 43.0 fL 09/25/2018 COMPLETE BLOOD COUNT 0393065 Basophil Abs 0.02 10e9/L 09/25/2018 COMPREHENSIVE METABOLIC 76254 AST 15 U/L 09/25/2018 COMPREHENSIVE METABOLIC 57041 ALT 20 U/L 09/25/2018 COMPREHENSIVE METABOLIC 02495 BUN 9 mg/dL 09/25/2018 COMPREHENSIVE METABOLIC 50260 ALBUMIN 4.3 g/dL 09/25/2018 COMPREHENSIVE METABOLIC 43335 CHLORIDE 107 mmol/L 09/25/2018 COMPREHENSIVE METABOLIC 24154 Bili Total 0.4 mg/dL 09/25/2018 COMPREHENSIVE METABOLIC 71784 ALK PHOS 51 U/L 09/25/2018 COMPREHENSIVE METABOLIC 61035 SODIUM 139 mmol/L 09/25/2018 COMPREHENSIVE METABOLIC 11854 CREATININE 0.61 mg/dL 09/25/2018 COMPREHENSIVE METABOLIC 41608 CALCIUM 9.1 mg/dL 09/25/2018 COMPREHENSIVE METABOLIC 75875 POTASSIUM 3.7 mmol/L 09/25/2018 COMPREHENSIVE METABOLIC 96163 Total Protein 6.3 g/dL 09/25/2018 COMPREHENSIVE METABOLIC 35776 Glucose 92 mg/dL 09/25/2018 COMPREHENSIVE METABOLIC 45760 Bicarbonate 24 mmol/L 09/25/2018 COMPREHENSIVE METABOLIC 18218 AGAP 8 mmol/L 09/25/2018 PT 9352428 PT 25.0 Seconds 09/25/2018 PT 1456330 INR 2.2 09/25/2018 GFR CALC 5298314 GFR Non Afr Amr >60 mL/min 09/25/2018 GFR CALC 9911560 GFR Afr Amr >60 mL/min 09/25/2018 PT 7235987 PT 25.7 Seconds 05/12/2018 PT 1351307 INR 2.3 05/12/2018 PT 8437936 PT TNP:Improper Specimen 04/30/2018 PT 7908711 INR TNP:Improper Specimen 04/30/2018 PT 0441825 PT 26.3 Seconds 02/05/2018 PT 1425591 INR 2.4 02/05/2018 ANTI STREPTOLYSIN O TITER(ASO) 00121 ASO Titr 118 IU/mL 8 VITAMIN B 12 89329 VITAM IN B12 302 pg/mL 12/02/2017 VITAMIN D TOTAL (25 HYDROXY) 89556 Vitamin D 25 OH 27.0 ng/mL 12/02/2017 PT 0079862 PT 17.3 Seconds 12/01/2017 PT 2568688 INR 1.4 12/01/2017 ANTI STREPTOLYSIN O TITER(ASO) 16519 ASO Titr 127 IU/mL 8 ANTI STREPTOLYSIN O TITER(ASO) 28870 ASO Titr 130 IU/mL 8 ANTINUCLEAR ANTIBODY SCREEN 36672 MAGALIE Ab Scr <1:80 10/02/2017 RA FACTOR 80508 RA FACTOR <20 IU/mL 10/02/2017 RA FACTOR 52136 RA Facto r Intp Negative 10/02/2017 VITAMIN D TOTAL (25 HYDROXY) 80752 Vitamin D 25 OH 18 ng/mL 8 IRON 18845 Iron 70 ug/dL 10/01/2017 VITAMIN B 12 65974 VITAM IN B12 377 pg/mL 10/01/2017 FREE T4 62166 T4 Free 1.31 ng/dL 10/01/2017 URIC ACID 73399 URIC ACID 3.9 mg/dL 10/01/2017 FERRITIN 20906 FERRITIN 68.0 ng/mL 10/01/2017 THYROID STIMULATING HORMONE 87282 TSH 1.401 uIU/mL 8 GLYCOSYLATED HEMOGLOBIN TEST 07818 Hgb A1c 60942-1 5.4 % 10/01/2017 FOLIC ACID 40698 Folate >24.0 ng/mL 10/01/2017 ASSAY TRIIODOTHYRONINE (T3) 36481 T3 Total 1.0 ng/mL 10/01/2017 ERYTHROCYTE SEDIMENTATION RATE 07445 Sed Rate 5 mm/hr 10/01/2017 MEAN GLUC 7365813 Calc M zach Gluc 108 mg/dL 10/01/2017 PT 6123375 PT 18.6 Seconds 08/07/2017 PT 9402609 INR 1.5 08/07/2017 COMPREHENSIVE METABOLIC 35802 AST 21 U/L 08/07/2017 COMPREHENSIVE METABOLIC 72557 ALT 37 U/L 08/07/2017 COMPREHENSIVE METABOLIC 15874 BUN 14 mg/dL 08/07/2017 COMPREHENSIVE METABOLIC 05412 ALBUMIN 4.5 g/dL 08/07/2017 COMPREHENSIVE METABOLIC 32511 CHLORIDE 104 mmol/L 08/07/2017 COMPREHENSIVE METABOLIC 83300 Bili Total 0.3 mg/dL 08/07/2017 COMPREHENSIVE METABOLIC 02867 ALK PHOS 55 U/L 08/07/2017 COMPREHENSIVE METABOLIC 04454 SODIUM 139 mmol/L 08/07/2017 COMPREHENSIVE METABOLIC 61059 CREATININE 0.77 mg/dL 08/07/2017 COMPREHENSIVE METABOLIC 35358 CALCIUM 9.2 mg/dL 08/07/2017 COMPREHENSIVE METABOLIC 41007 POTASSIUM 3.7 mmol/L 08/07/2017 COMPREHENSIVE METABOLIC 17743 Total Protein 6.5 g/dL 08/07/2017 COMPREHENSIVE METABOLIC 20234 Glucose 101 mg/dL 08/07/2017 COMPREHENSIVE METABOLIC 14937 Bicarbonate 25 mmol/L 08/07/2017 COMPREHENSIVE METABOLIC 24932 AGAP 10 mmol/L 08/07/2017 COMPLETE BLOOD COUNT 0318250 WBC 9.4 10e9/L 08/07/2017 COMPLETE BLOOD COUNT 1308014 RBC 4.38 10e12/L 8 COMPLETE BLOOD COUNT 3268798 HEMOGLOBIN 14.5 g/dL 08/07/2017 COMPLETE BLOOD COUNT 1410699 HEMATOCRIT 42.7 % 08/07/2017 COMPLETE BLOOD COUNT 9916081 MCV 97.5 fL 08/07/2017 COMPLETE BLOOD COUNT 5220193 MCH 33.1 pg 08/07/2017 COMPLETE BLOOD COUNT 4367684 MCHC 34.0 g/dL 08/07/2017 COMPLETE BLOOD COUNT 8907968 PLATELET COUNT 313 10e9/L 08/07/2017 COMPLETE BLOOD COUNT [id number] Mean Plt Volume 8.6 fL 08/07/2017 COMPLETE BLOOD COUNT 8846624 Neut Auto 51.6 % 08/07/2017 COMPLETE BLOOD COUNT 7483653 Lymph Auto 40.0 % 08/07/2017 COMPLETE BLOOD COUNT 5087841 [place] Auto 6.8 % 08/07/2017 COMPLETE BLOOD COUNT 4955045 RDW 12.9 % 08/07/2017 COMPLETE BLOOD COUNT 8479968 Eos Auto 1.4 % 08/07/2017 COMPLETE BLOOD COUNT 0319613 Baso Auto 0.2 % 08/07/2017 COMPLETE BLOOD COUNT 6206904 Neutrophil Abs 4.85 10e9/L 08/07/2017 COMPLETE BLOOD COUNT 4078652 Lymphocyte Abs 3.76 10e9/L 08/07/2017 COMPLETE BLOOD COUNT 8746037 Monocyte Abs 0.64 10e9/L 08/07/2017 COMPLETE BLOOD COUNT 4787736 Eosinophil Abs 0.13 10e9/L 08/07/2017 COMPLETE BLOOD COUNT 1745482 RDW-SD 45.1 fL 08/07/2017 COMPLETE BLOOD COUNT 7522286 Basophil Abs 0.02 10e9/L 08/07/2017 GFR CALC 7581513 GFR Non Afr Amr >60 mL/min 08/07/2017 GFR CALC 8380982 GFR Afr Amr >60 mL/min 08/07/2017 COMPLETE BLOOD COUNT 3037953 WBC 9.2 10e9/L 07/15/2017 COMPLETE BLOOD COUNT 3958473 RBC 4.70 10e12/L 8 COMPLETE BLOOD COUNT 6846309 HEMOGLOBIN 15.4 g/dL 07/15/2017 COMPLETE BLOOD COUNT 6818278 HEMATOCRIT 46.2 % 07/15/2017 COMPLETE BLOOD COUNT 6521592 MCV 98.3 fL 07/15/2017 COMPLETE BLOOD COUNT 4658924 MCH 32.8 pg 07/15/2017 COMPLETE BLOOD COUNT 4795674 MCHC 33.3 g/dL 07/15/2017 COMPLETE BLOOD COUNT 3178177 PLATELET COUNT 348 10e9/L 07/15/2017 COMPLETE BLOOD COUNT 4509193 Mean Plt Volume 8.9 fL 07/15/2017 COMPLETE BLOOD COUNT 8625378 Neut Auto 60.6 % 07/15/2017 COMPLETE BLOOD COUNT 1081579 Lymph Auto 30.9 % 07/15/2017 COMPLETE BLOOD COUNT 8630434 [place] Auto 7.1 % 07/15/2017 COMPLETE BLOOD COUNT 3812802 RDW 13.1 % 07/15/2017 COMPLETE BLOOD COUNT 1048311 Eos Auto 1.2 % 07/15/2017 COMPLETE BLOOD COUNT 2454996 Baso Auto 0.2 % 07/15/2017 COMPLETE BLOOD COUNT 9110496 Neutrophil Abs 5.58 10e9/L 07/15/2017 COMPLETE BLOOD COUNT 6813977 Lymphocyte Abs 2.84 10e9/L 07/15/2017 COMPLETE BLOOD COUNT 0212186 Monocyte Abs 0.65 10e9/L 07/15/2017 COMPLETE BLOOD COUNT 4757310 Eosinophil Abs 0.11 10e9/L 07/15/2017 COMPLETE BLOOD COUNT 1234951 RDW-SD 46.1 fL 07/15/2017 COMPLETE BLOOD COUNT 7227942 Basophil Abs 0.02 10e9/L 07/15/2017 GFR CALC 7999692 GFR Non Afr Amr >60 mL/min 07/15/2017 GFR CALC 4433727 GFR Afr Amr >60 mL/min 07/15/2017 COMPREHENSIVE METABOLIC 59735 AST 16 U/L 07/15/2017 COMPREHENSIVE METABOLIC 59973 ALT 20 U/L 07/15/2017 COMPREHENSIVE METABOLIC 96740 BUN 13 mg/dL 07/15/2017 COMPREHENSIVE METABOLIC 22675 ALBUMIN 4.6 g/dL 07/15/2017 COMPREHENSIVE METABOLIC 15955 CHLORIDE 106 mmol/L 07/15/2017 COMPREHENSIVE METABOLIC 27958 Bili Total 0.3 mg/dL 07/15/2017 COMPREHENSIVE METABOLIC 40108 ALK PHOS 50 U/L 07/15/2017 COMPREHENSIVE METABOLIC 69463 SODIUM 137 mmol/L 07/15/2017 COMPREHENSIVE METABOLIC 75225 CREATININE 0.62 mg/dL 07/15/2017 COMPREHENSIVE METABOLIC 43653 CALCIUM 9.2 mg/dL 07/15/2017 COMPREHENSIVE METABOLIC 67313 POTASSIUM 3.8 mmol/L 07/15/2017 COMPREHENSIVE METABOLIC 98622 Total Protein 6.7 g/dL 07/15/2017 COMPREHENSIVE METABOLIC 12178 Glucose 83 mg/dL 07/15/2017 COMPREHENSIVE METABOLIC 27138 Bicarbonate 30 mmol/L 07/15/2017 COMPREHENSIVE METABOLIC 38054 AGAP 1 mmol/L 07/15/2017 THYROID STIMULATING HORMONE 08339 TSH 2.111 uIU/mL 201 7 COMPREHENSIVE METABOLIC 38966 AST 33 U/L 08/27/2016 COMPREHENSIVE METABOLIC 61133 ALT 55 U/L 08/27/2016 COMPREHENSIVE METABOLIC 83920 BUN 11 mg/dL 08/27/2016 COMPREHENSIVE METABOLIC 88554 ALBUMIN 4.6 g/dL 08/27/2016 COMPREHENSIVE METABOLIC 71329 CHLORIDE 103 mmol/L 08/27/2016 COMPREHENSIVE METABOLIC 35798 Bili Total 0.3 mg/dL 08/27/2016 COMPREHENSIVE METABOLIC 45214 ALK PHOS 60 U/L 08/27/2016 COMPREHENSIVE METABOLIC 58440 SODIUM 140 mmol/L 08/27/2016 COMPREHENSIVE METABOLIC 68673 CREATININE 0.69 mg/dL 08/27/2016 COMPREHENSIVE METABOLIC 00581 CALCIUM 9.3 mg/dL 08/27/2016 COMPREHENSIVE METABOLIC 58983 POTASSIUM 3.7 mmol/L 08/27/2016 COMPREHENSIVE METABOLIC 70944 Total Protein 6.8 g/dL 08/27/2016 COMPREHENSIVE METABOLIC 73086 Glucose 79 mg/dL 08/27/2016 COMPREHENSIVE METABOLIC 83911 Bicarbonate 25 mmol/L 08/27/2016 COMPREHENSIVE METABOLIC 65146 AGAP 12 mmol/L 08/27/2016 COMPLETE BLOOD COUNT 1878278 WBC 9.4 10e9/L 08/27/2016 COMPLETE BLOOD COUNT 1869539 RBC 4.35 10e12/L 7 COMPLETE BLOOD COUNT 9940569 HEMOGLOBIN 14.2 g/dL 08/27/2016 COMPLETE BLOOD COUNT 5674811 HEMATOCRIT 41.5 % 08/27/2016 COMPLETE BLOOD COUNT 3703426 MCV 95.4 fL 08/27/2016 COMPLETE BLOOD COUNT 0766050 MCH 32.6 pg 08/27/2016 COMPLETE BLOOD COUNT 8420768 MCHC 34.2 g/dL 08/27/2016 COMPLETE BLOOD COUNT 2695622 PLATELET COUNT 289 10e9/L 08/27/2016 COMPLETE BLOOD COUNT 6796622 Mean Plt Volume 9.8 fL 08/27/2016 COMPLETE BLOOD COUNT 2935859 Neut Auto 47.7 % 08/27/2016 COMPLETE BLOOD COUNT 3230291 Lymph Auto 44.2 % 08/27/2016 COMPLETE BLOOD COUNT 1657985 [place] Auto 6.6 % 08/27/2016 COMPLETE BLOOD COUNT 9032138 RDW 12.9 % 08/27/2016 COMPLETE BLOOD COUNT 9196363 Eos Auto 1.4 % 08/27/2016 COMPLETE BLOOD COUNT 3201464 Baso Auto 0.1 % 08/27/2016 COMPLETE BLOOD COUNT 7128187 Neutrophil Abs 4.48 10e9/L 08/27/2016 COMPLETE BLOOD COUNT 1793537 Lymphocyte Abs 4.15 10e9/L 08/27/2016 COMPLETE BLOOD COUNT 7813357 Monocyte Abs 0.62 10e9/L 08/27/2016 COMPLETE BLOOD COUNT 6697032 Eosinophil Abs 0.13 10e9/L 08/27/2016 COMPLETE BLOOD COUNT 8812764 RDW-SD 43.9 fL 08/27/2016 COMPLETE BLOOD COUNT 3011801 Basophil Abs 0.01 10e9/L 08/27/2016 PT 8847895 PT 15.0 Seconds 08/27/2016 PT 5495292 INR 1.2 08/27/2016 GFR CALC 3511473 GFR Afr Amr >60 mL/min 08/27/2016 GFR CALC 6553189 GFR Non Afr Amr >60 mL/min 08/27/2016 GFR CALC 5438857 GFR Non Afr Amr >60 mL/min 05/24/2016 GFR CALC 7883616 GFR Afr Amr >60 mL/min 05/24/2016 COMPREHENSIVE METABOLIC 53982 AST 19 U/L 05/24/2016 COMPREHENSIVE METABOLIC 28935 ALT 23 U/L 05/24/2016 COMPREHENSIVE METABOLIC 10988 BUN 12 mg/dL 05/24/2016 COMPREHENSIVE METABOLIC 09829 ALBUMIN 4.1 g/dL 05/24/2016 COMPREHENSIVE METABOLIC 05988 CHLORIDE 105 mmol/L 05/24/2016 COMPREHENSIVE METABOLIC 72560 Bili Total 0.4 mg/dL 05/24/2016 COMPREHENSIVE METABOLIC 66055 ALK PHOS 52 U/L 05/24/2016 COMPREHENSIVE METABOLIC 11135 SODIUM 136 mmol/L 05/24/2016 COMPREHENSIVE METABOLIC 77016 CREATININE 0.61 mg/dL 05/24/2016 COMPREHENSIVE METABOLIC 48464 CALCIUM 8.8 mg/dL 05/24/2016 COMPREHENSIVE METABOLIC 70533 POTASSIUM 3.8 mmol/L 05/24/2016 COMPREHENSIVE METABOLIC 33300 Total Protein 6.2 g/dL 05/24/2016 COMPREHENSIVE METABOLIC 00260 Glucose 95 mg/dL 05/24/2016 COMPREHENSIVE METABOLIC 04620 Bicarbonate 19 mmol/L 05/24/2016 COMPREHENSIVE METABOLIC 20756 AGAP 12 mmol/L 05/24/2016 PT 1813793 PT 25.7 Seconds 05/24/2016 PT 0554725 INR 2.4 05/24/2016 PT 2851858 PT 22.2 Seconds 04/11/2016 PT 9370074 INR 2.0 04/11/2016 PT 3073924 PT 16.5 Seconds 03/13/2016 PT 7128222 INR 1.4 03/13/2016 THYROID STIMULATING HORMONE 13507 TSH 1.151 uIU/mL 6 COMPLETE BLOOD COUNT 5198986 WBC 10.0 10e9/L 03/12/2016 COMPLETE BLOOD COUNT 1948388 RBC 4.08 10e12/L 6 COMPLETE BLOOD COUNT 6143373 HEMOGLOBIN 13.5 g/dL 03/12/2016 COMPLETE BLOOD COUNT 2962395 HEMATOCRIT 38.8 % 03/12/2016 COMPLETE BLOOD COUNT 8749958 MCV 95.1 fL 03/12/2016 COMPLETE BLOOD COUNT 1658717 MCH 33.1 pg 03/12/2016 COMPLETE BLOOD COUNT 8124448 MCHC 34.8 g/dL 03/12/2016 COMPLETE BLOOD COUNT 5816814 PLATELET COUNT 282 10e9/L 03/12/2016 COMPLETE BLOOD COUNT 1238800 Mean Plt Volume 9.6 fL 03/12/2016 COMPLETE BLOOD COUNT 0506973 Neut Auto 53.5 % 03/12/2016 COMPLETE BLOOD COUNT 3180251 Lymph Auto 39.0 % 03/12/2016 COMPLETE BLOOD COUNT 1560850 [place] Auto 5.9 % 03/12/2016 COMPLETE BLOOD COUNT 9256466 RDW 12.6 % 03/12/2016 COMPLETE BLOOD COUNT 8402416 Eos Auto 1.4 % 03/12/2016 COMPLETE BLOOD COUNT 3983159 Baso Auto 0.2 % 03/12/2016 COMPLETE BLOOD COUNT 0591892 Neutrophil Abs 5.35 10e9/L 03/12/2016 COMPLETE BLOOD COUNT 0552595 Lymphocyte Abs 3.90 10e9/L 03/12/2016 COMPLETE BLOOD COUNT 9065170 Monocyte Abs 0.59 10e9/L 03/12/2016 COMPLETE BLOOD COUNT 9777727 Eosinophil Abs 0.14 10e9/L 03/12/2016 COMPLETE BLOOD COUNT 1118319 RDW-SD 42.7 fL 03/12/2016 COMPLETE BLOOD COUNT 3639869 Basophil Abs 0.02 10e9/L 03/12/2016 COMPREHENSIVE METABOLIC 50569 AST 13 U/L 03/12/2016 COMPREHENSIVE METABOLIC 43527 ALT 11 U/L 03/12/2016 COMPREHENSIVE METABOLIC 98587 BUN 11 mg/dL 03/12/2016 COMPREHENSIVE METABOLIC 19283 ALBUMIN 4.1 g/dL 03/12/2016 COMPREHENSIVE METABOLIC 49309 CHLORIDE 107 mmol/L 03/12/2016 COMPREHENSIVE METABOLIC 19411 Bili Total 0.3 mg/dL 03/12/2016 COMPREHENSIVE METABOLIC 71979 ALK PHOS 41 U/L 03/12/2016 COMPREHENSIVE METABOLIC 64089 SODIUM 137 mmol/L 03/12/2016 COMPREHENSIVE METABOLIC 13860 CREATININE 0.62 mg/dL 03/12/2016 COMPREHENSIVE METABOLIC 70014 CALCIUM 9.0 mg/dL 03/12/2016 COMPREHENSIVE METABOLIC 19009 POTASSIUM 3.8 mmol/L 03/12/2016 COMPREHENSIVE METABOLIC 73989 Total Protein 6.1 g/dL 03/12/2016 COMPREHENSIVE METABOLIC 38465 Glucose 95 mg/dL 03/12/2016 COMPREHENSIVE METABOLIC 31506 Bicarbonate 23 mmol/L 03/12/2016 COMPREHENSIVE METABOLIC 05541 AGAP 7 mmol/L 03/12/2016 GFR CALC 1504814 GFR Non Afr Amr >60 mL/min 03/12/2016 GFR CALC 5801670 GFR Afr Amr >60 mL/min 03/12/2016 PT 6035024 PT 14.4 Seconds 02/12/2016 PT 0446680 INR 1.2 02/12/2016 PT 9915217 PT 26.1 Seconds 02/01/2016 PT 3813926 INR 2.4 02/01/2016 [place] VIR[place] VCA G/M + [place] + [place] [address]|8 6665 x 2|84457 EBV VCA Ab IgG 3.70 11/13/2015 [place] VIRUS VCA G/M + [place] + [place] [address]|8 6665 x 2|34227 EBV VCA Ab IgM 0.47 11/13/2015 EB VIRUS VCA G/M + [place] + [place] [address]|8 6665 x 2|31156 EBV Nuclear Ab 2.24 11/13/2015 EB VIRUS VCA G/M + EB[place] + [place] [address]|8 6665 x 2|59247 EBV Early Ab 1.37 11/13/2015 PT 4760241 PT 18.9 Seconds 11/10/2015 PT 7393305 INR 1.6 11/10/2015 PT 0378179 PT 16.8 Seconds 09/29/2015 PT 8586672 INR 1.4 09/29/2015 COMPLETE BLOOD COUNT 7447384 WBC 9.6 10e9/L 09/29/2015 COMPLETE BLOOD COUNT 8029045 RBC 4.51 10e12/L 6 COMPLETE BLOOD COUNT 4185846 HEMOGLOBIN 14.8 g/dL 09/29/2015 COMPLETE BLOOD COUNT 3676965 HEMATOCRIT 43.3 % 09/29/2015 COMPLETE BLOOD COUNT 0240114 MCV 96.0 fL 09/29/2015 COMPLETE BLOOD COUNT 4211152 MCH 32.8 pg 09/29/2015 COMPLETE BLOOD COUNT 5276069 MCHC 34.2 g/dL 09/29/2015 COMPLETE BLOOD COUNT 1830526 PLATELET COUNT 310 10e9/L 09/29/2015 COMPLETE BLOOD COUNT 1297927 Mean Plt Volume 9.7 fL 09/29/2015 COMPLETE BLOOD COUNT 6797491 Neutrophil 60.3 % 09/29/2015 COMPLETE BLOOD COUNT 6062681 Lymph Auto % 32.4 % 09/29/2015 COMPLETE BLOOD COUNT 2794226 Monocyte Auto % 6.5 % 09/29/2015 COMPLETE BLOOD COUNT 9030456 RDW 12.8 % 09/29/2015 COMPLETE BLOOD COUNT 0380231 Eosinophil 0.7 % 09/29/2015 COMPLETE BLOOD COUNT 4918260 Basophil 0.1 % 09/29/2015 COMPLETE BLOOD COUNT 4631178 Neutrophil Abs 5.79 10e9/L 09/29/2015 COMPLETE BLOOD COUNT 9152028 Lymphoctye Abs 3.11 10e9/L 09/29/2015 COMPLETE BLOOD COUNT 1464237 Monocyte Abs 0.62 10e9/L 09/29/2015 COMPLETE BLOOD COUNT 2140921 Eosinophil Abs 0.07 10e9/L 09/29/2015 COMPLETE BLOOD COUNT 0537990 RDW-SD 43.6 fL 09/29/2015 COMPLETE BLOOD COUNT 8014205 Basophil Abs 0.01 10e9/L 09/29/2015 IRON 12602 Iron 86 ug/dL 09/29/2015 COMPLETE BLOOD COUNT 0955267 WBC 9.6 10e9/L 09/29/2015 COMPLETE BLOOD COUNT 6149953 RBC 4.51 10e12/L 6 COMPLETE BLOOD COUNT 0660205 HEMOGLOBIN 14.8 g/dL 09/29/2015 COMPLETE BLOOD COUNT 6778252 HEMATOCRIT 43.3 % 09/29/2015 COMPLETE BLOOD COUNT 8440988 MCV 96.0 fL 09/29/2015 COMPLETE BLOOD COUNT 8244197 MCH 32.8 pg 09/29/2015 COMPLETE BLOOD COUNT 5888928 MCHC 34.2 g/dL 09/29/2015 COMPLETE BLOOD COUNT 4476910 PLATELET COUNT 310 10e9/L 09/29/2015 COMPLETE BLOOD COUNT 8823705 Mean Plt Volume 9.7 fL 09/29/2015 COMPLETE BLOOD COUNT 4785600 Neutrophil 60.3 % 09/29/2015 COMPLETE BLOOD COUNT 0152904 Lymph Auto % 32.4 % 09/29/2015 COMPLETE BLOOD COUNT 3598836 Monocyte Auto % 6.5 % 09/29/2015 COMPLETE BLOOD COUNT 7721361 RDW 12.8 % 09/29/2015 COMPLETE BLOOD COUNT 2022743 Eosinophil 0.7 % 09/29/2015 COMPLETE BLOOD COUNT 1310273 Basophil 0.1 % 09/29/2015 COMPLETE BLOOD COUNT 2316018 Neutrophil Abs 5.79 10e9/L 09/29/2015 COMPLETE BLOOD COUNT 2951063 Lymphoctye Abs 3.11 10e9/L 09/29/2015 COMPLETE BLOOD COUNT 4180243 Monocyte Abs 0.62 10e9/L 09/29/2015 COMPLETE BLOOD COUNT 5622301 Eosinophil Abs 0.07 10e9/L 09/29/2015 COMPLETE BLOOD COUNT 6232314 RDW-SD 43.6 fL 09/29/2015 COMPLETE BLOOD COUNT 0959057 Basophil Abs 0.01 10e9/L 09/29/2015 PT 2157819 PT 16.8 Seconds 09/29/2015 PT 0058027 INR 1.4 09/29/2015 IRON 51399 Iron 86 ug/dL 09/29/2015 PT [place] 24765 PRO T PAULIE 19.4 SEC 07/27/2015 [place] 02859 INR M CMC 1.7 07/27/2015 PT [place] 18929 PRO T PAULIE 21.4 SEC 06/21/2015 PT [place] 71402 INR M CMC 1.9 06/21/2015 PT [place] 30928 PRO T PAULIE 24.5 SEC 05/24/2015 PT [place] 39606 INR M CMC 2.3 05/24/2015 Review of [...] Procedures Procedure Codes Date ROUTINE VENIPUNCTURE CPT-4: 34098 01/19/2019 PROTHROMBIN TIME CPT-4: 06113 01/19/2019 COMPLETE CBC W/AUTO DIFF WBC CPT-4: 97471 01/19/2019 ANTISTREPTOLYSIN O T ITER CPT-4: 03755 01/19/2019 HEPATIC FUNCTION PANEL CPT-4: 27597 01/19/2019 MYCOPLASMA ANTIBODY, IFA CPT-4: 63618O9 01/19/2019 RESPIRATORY CULTURE & STAIN CPT-4: 31598 01/19/2019 STREP A ASSAY W/OPTIC CPT-4: 40585 01/19/2019 THER/PROPH/DIAG INJ SC/IM CPT-4: 55353 01/04/2019 TRIAMCINOLONE ACET I [place] NOS CPT-4: J3301 01/04/2019 ROUTINE VENIPUNCTURE CPT-4: 27028 12/18/2018 COMPLETE CBC W/AUTO DIFF WBC CPT-4: 36971 12/18/2018 COMPREHEN METABOLIC PANEL CPT-4: 78523 12/18/2018 HYDRATION IV INFUSIO N INIT CPT-4: 13631 12/16/2018 STREP A ASSAY W/OPTIC CPT-4: 20570 12/02/2018 ROUTINE VENIPUNCTURE CPT-4: 97229 11/30/2018 PT CPT-4: 2560011 11/30/2018 CEFTRIAXONE SODIUM I NJECTION CPT-4: J0696 11/30/2018 THER/PROPH/DIAG INJ SC/IM CPT-4: 87477 11/30/2018 URINE CULTURE/ COLON Y COUNT CPT-4: 02626 11/20/2018 URINALYSIS NONAUTO W /O SCOPE CPT-4: 51385 11/20/2018 CEFTRIAXONE SODIUM I NJECTION CPT-4: J0696 11/12/2018 THER/PROPH/DIAG INJ SC/IM CPT-4: 23764 11/12/2018 STREP A ASSAY W/OPTIC CPT-4: 09086 11/11/2018 CEFTRIAXONE SODIUM I NJECTION CPT-4: J0696 11/11/2018 THER/PROPH/DIAG INJ SC/IM CPT-4: 85814 11/11/2018 ROUTINE VENIPUNCTURE CPT-4: 87200 11/11/2018 ANTISTREPTOLYSIN O T ITER CPT-4: 52949 11/11/2018 COMPLETE CBC W/AUTO DIFF WBC CPT-4: 82742 11/11/2018 ROUTINE VENIPUNCTURE CPT-4: 82285 10/27/2018 PT CPT-4: 6282107 10/27/2018 THER/PROPH/DIAG INJ SC/IM CPT-4: 76467 10/09/2018 TRIAMCINOLONE ACET I [place] NOS CPT-4: J3301 10/09/2018 CEFTRIAXONE SODIUM I NJECTION CPT-4: J0696 10/08/2018 THER/PROPH/DIAG INJ SC/IM CPT-4: 14995 10/08/2018 CEFTRIAXONE SODIUM I NJECTION CPT-4: J0696 10/07/2018 THER/PROPH/DIAG INJ SC/IM CPT-4: 71759 10/07/2018 ROUTINE VENIPUNCTURE CPT-4: 82465 09/25/2018 COMPREHEN METABOLIC PANEL CPT-4: 48769 09/25/2018 COMPLETE CBC W/AUTO DIFF WBC CPT-4: 59627 09/25/2018 PT CPT-4: 3616437 09/25/2018 URINE CULTURE/ COLON Y COUNT CPT-4: 15529 09/10/2018 URINALYSIS NONAUTO W /O SCOPE CPT-4: 76821 09/10/2018 CEFTRIAXONE SODIUM I NJECTION CPT-4: J0696 09/08/2018 THER/PROPH/DIAG INJ SC/IM CPT-4: 98037 09/08/2018 ROUTINE VENIPUNCTURE CPT-4: 30527 08/14/2018 PT CPT-4: 4841270 08/14/2018 CEFTRIAXONE SODIUM I NJECTION CPT-4: J0696 07/02/2018 THER/PROPH/DIAG INJ SC/IM CPT-4: 75219 07/02/2018 THER/PROPH/DIAG INJ SC/IM CPT-4: 01608 07/02/2018 TRIAMCINOLONE ACET I NJ NOS CPT-4: J3301 07/02/2018 ROUTINE VENIPUNCTURE CPT-4: 24867 06/22/2018 ANTISTREPTOLYSIN O T ITER CPT-4: 02786 06/22/2018 ROUTINE VENIPUNCTURE CPT-4: 16553 06/17/2018 PROTHROMBIN TIME CPT-4: 37570 06/17/2018 URINE CULTURE/ COLON Y COUNT CPT-4: 63586 06/17/2018 CEFTRIAXONE SODIUM I NJECTION CPT-4: J0696 05/12/2018 THER/PROPH/DIAG INJ SC/IM CPT-4: 01446 05/12/2018 PROTHROMBIN TIME CPT-4: 13953 05/11/2018 CEFTRIAXONE SODIUM I NJECTION CPT-4: J0696 05/11/2018 THER/PROPH/DIAG INJ SC/IM CPT-4: 26558 05/11/2018 ROUTINE VENIPUNCTURE CPT-4: 66243 04/30/2018 PROTHROMBIN TIME CPT-4: 06573 04/30/2018 THER/PROPH/DIAG INJ SC/IM CPT-4: 40799 04/02/2018 TRIAMCINOLONE ACET I NJ NOS CPT-4: J3301 04/02/2018 IIV4 VACCINE 3 YRS+ IM AND UP CPT-4: 92772 03/24/2018 IMMUNIZATION ADMIN CPT- 4: 09227 03/24/2018 ROUTINE VENIPUNCTURE CPT-4: 29171 03/24/2018 PT CPT-4: 2760111 03/24/2018 PROTHROMBIN TIME CPT-4: 44069 02/24/2018 ROUTINE VENIPUNCTURE CPT-4: 24805 02/24/2018 ROUTINE VENIPUNCTURE CPT-4: 72461 02/05/2018 PROTHROMBIN TIME CPT-4: 56311 02/05/2018 URINE CULTURE/ COLON Y COUNT CPT-4: 67145 02/05/2018 CEFTRIAXONE SODIUM I NJECTION CPT-4: J0696 01/29/2018 THER/PROPH/DIAG INJ SC/IM CPT-4: 51082 01/29/2018 CEFTRIAXONE SODIUM I NJECTION CPT-4: J0696 01/28/2018 THER/PROPH/DIAG INJ SC/IM CPT-4: 30246 01/28/2018 URINALYSIS NONAUTO W /O SCOPE CPT-4: 92507 01/26/2018 URINE CULTURE/ COLON Y COUNT CPT-4: 65008 01/26/2018 ROUTINE VENIPUNCTURE CPT-4: 62736 01/01/2018 PROTHROMBIN TIME CPT-4: 59540 01/01/2018 THER/PROPH/DIAG INJ SC/IM CPT-4: 60218 12/25/2017 TRIAMCINOLONE ACET I NJ NOS CPT-4: J3301 12/25/2017 DEXAMETHASONE SODIUM PHOS CPT-4: J1100 12/25/2017 STREP A ASSAY W/OPTIC CPT-4: 13031 12/11/2017 CEFTRIAXONE SODIUM I NJECTION CPT-4: J0696 12/11/2017 THER/PROPH/DIAG INJ SC/IM CPT-4: 82078 12/11/2017 ROUTINE VENIPUNCTURE CPT-4: 51401 12/01/2017 ANTISTREPTOLYSIN O T ITER CPT-4: 34380 12/01/2017 PROTHROMBIN TIME CPT-4: 99502 12/01/2017 VITAMIN D TOTAL (25 HYDROXY) CPT-4: 85482 12/01/2017 VITAMIN B-12 CPT-4: 86678 12/01/2017 SPECIMEN HANDLING OF FICE-LAB CPT-4: 70244 11/05/2017 ROUTINE VENIPUNCTURE CPT-4: 08243 10/14/2017 ANTISTREPTOLYSIN O T ITER CPT-4: 81205 10/14/2017 ROUTINE VENIPUNCTURE CPT-4: 79675 10/06/2017 PROTHROMBIN TIME CPT-4: 89993 10/06/2017 THER/PROPH/DIAG INJ SC/IM CPT-4: 60454 10/06/2017 TRIAMCINOLONE ACET I NJ NOS CPT-4: J3301 10/06/2017 ROUTINE VENIPUNCTURE CPT-4: 38207 10/01/2017 VITAMIN B-12 CPT-4: 41985 10/01/2017 FOLIC ACID CPT-4: 16224 10/01/2017 ASSAY THYROID STIM H ORMONE CPT-4: 29578 10/01/2017 ASSAY OF FREE THYROXINE CPT-4: 72502 10/01/2017 ASSAY TRIIODOTHYRONI NE (T3) CPT-4: 90201 10/01/2017 ASSAY OF BLOOD/URIC ACID CPT-4: 67659 10/01/2017 RHEUMATOID FACTOR QUANT CPT-4: 31708 10/01/2017 RBC SED RATE AUTOMATED CPT-4: 31494 10/01/2017 ANTISTREPTOLYSIN O T ITER CPT-4: 31288 10/01/2017 ASSAY OF IRON CPT-4: 79607 10/01/2017 ASSAY OF FERRITIN CPT-4: 29577 10/01/2017 ANTINUCLEAR ANTIBODIES CPT-4: 07925 10/01/2017 A1C HPLC CPT-4: 36565 10/01/2017 VITAMIN D TOTAL (25 HYDROXY) CPT-4: 75570 10/01/2017 THER/PROPH/DIAG INJ SC/IM CPT-4: 75457 09/05/2017 TRIAMCINOLONE ACET I NJ NOS CPT-4: J3301 09/05/2017 URINALYSIS NONAUTO W /O SCOPE CPT-4: 18525 09/05/2017 URINE CULTURE/ COLON Y COUNT CPT-4: 48676 09/05/2017 ROUTINE VENIPUNCTURE CPT-4: 99203 09/04/2017 PROTHROMBIN TIME CPT-4: 50598 09/04/2017 ROUTINE VENIPUNCTURE CPT-4: 79978 08/07/2017 COMPLETE CBC W/AUTO DIFF WBC CPT-4: 02409 08/07/2017 COMPREHEN METABOLIC PANEL CPT-4: 41142 08/07/2017 PROTHROMBIN TIME CPT-4: 10193 08/07/2017 INFLUENZA ASSAY W/OPTIC CPT-4: 31340 07/15/2017 ROUTINE VENIPUNCTURE CPT-4: 96906 07/15/2017 COMPREHEN METABOLIC PANEL CPT-4: 03055 07/15/2017 COMPLETE CBC W/AUTO DIFF WBC CPT-4: 65160 07/15/2017 CEFTRIAXONE SODIUM I NJECTION CPT-4: J0696 07/04/2017 THER/PROPH/DIAG INJ SC/IM CPT-4: 45386 07/04/2017 THER/PROPH/DIAG INJ SC/IM CPT-4: 41436 07/04/2017 TRIAMCINOLONE ACET I NJ NOS CPT-4: J3301 07/04/2017 CEFTRIAXONE SODIUM I NJECTION CPT-4: J0696 07/02/2017 THER/PROPH/DIAG INJ SC/IM CPT-4: 28128 07/02/2017 CEFTRIAXONE SODIUM I NJECTION CPT-4: J0696 07/01/2017 THER/PROPH/DIAG INJ SC/IM CPT-4: 00821 07/01/2017 ROUTINE VENIPUNCTURE CPT-4: 71773 06/19/2017 PROTHROMBIN TIME CPT-4: 57522 06/19/2017 THER/PROPH/DIAG INJ SC/IM CPT-4: 72606 04/01/2017 TRIAMCINOLONE ACET I NJ NOS CPT-4: J3301 04/01/2017 ROUTINE VENIPUNCTURE CPT-4: 30325 02/10/2017 PROTHROMBIN TIME CPT-4: 19414 02/10/2017 URINALYSIS NONAUTO W /O SCOPE CPT-4: 36671 02/10/2017 URINE CULTURE/ COLON Y COUNT CPT-4: 96005 02/10/2017 ROUTINE VENIPUNCTURE CPT-4: 21949 02/05/2017 PROTHROMBIN TIME CPT-4: 50748 02/05/2017 THROAT CULTURE CPT-4: 75084 02/03/2017 STREP A ASSAY W/OPTIC CPT-4: 74519 01/13/2017 ROUTINE VENIPUNCTURE CPT-4: 18565 12/18/2016 PROTHROMBIN TIME CPT-4: 52018 12/18/2016 URINE CULTURE/ COLON Y COUNT CPT-4: 19290 08/27/2016 ASSAY THYROID STIM H ORMONE CPT-4: 56667 08/27/2016 COMPREHEN METABOLIC PANEL CPT-4: 85583 08/27/2016 COMPLETE CBC W/AUTO DIFF WBC CPT-4: 36748 08/27/2016 PROTHROMBIN TIME CPT-4: 02034 08/27/2016 ROUTINE VENIPUNCTURE CPT-4: 26171 08/27/2016 ROUTINE VENIPUNCTURE CPT-4: 07267 05/24/2016 COMPREHEN METABOLIC PANEL CPT-4: 68158 05/24/2016 PROTHROMBIN TIME CPT-4: 68425 05/24/2016 URINALYSIS NONAUTO W /O SCOPE CPT-4: 33097 04/23/2016 URINE CULTURE/ COLON Y COUNT CPT-4: 25487 04/23/2016 PRESCRIP TRANSMIT A ERX SY CPT-4: G8553 04/23/2016 AEROBIC WOUND CULTUR E & STN CPT-4: 06196 04/17/2016 ROUTINE VENIPUNCTURE CPT-4: 43411 04/11/2016 PROTHROMBIN TIME CPT-4: 16300 04/11/2016 ROUTINE VENIPUNCTURE CPT-4: 25484 03/12/2016 COMPLETE CBC W/AUTO DIFF WBC CPT-4: 82194 03/12/2016 COMPREHEN METABOLIC PANEL CPT-4: 05688 03/12/2016 ASSAY THYROID STIM H ORMONE CPT-4: 41826 03/12/2016 PROTHROMBIN TIME CPT-4: 85590 03/12/2016 ROUTINE VENIPUNCTURE CPT-4: 37757 02/12/2016 PROTHROMBIN TIME CPT-4: 27315 02/12/2016 ROUTINE VENIPUNCTURE CPT-4: 00579 02/01/2016 PROTHROMBIN TIME CPT-4: 24957 02/01/2016 ROUTINE VENIPUNCTURE CPT-4: 91933 01/22/2016 PROTHROMBIN TIME CPT-4: 04798 01/22/2016 ROUTINE VENIPUNCTURE CPT-4: 14795 11/10/2015 PROTHROMBIN TIME CPT-4: 01698 11/10/2015 CEFTRIAXONE SODIUM I NJECTION CPT-4: J0696 11/10/2015 THER/PROPH/DIAG INJ SC/IM CPT-4: 90383 11/10/2015 EB VIRUS VCA G/M + E BNA + EA CPT-4: 74125|22158 x 2|73783 016 THROAT CULTURE CPT-4: 45449 11/09/2015 STREP A ASSAY W/OPTIC CPT-4: 01291 11/09/2015 STREP A ASSAY W/OPTIC CPT-4: 22497 10/02/2015 ROUTINE VENIPUNCTURE CPT-4: 50434 09/29/2015 COMPLETE CBC W/AUTO DIFF WBC CPT-4: 15372 09/29/2015 ASSAY OF IRON CPT-4: 92853 09/29/2015 PROTHROMBIN TIME CPT-4: 45512 09/29/2015 ROUTINE VENIPUNCTURE CPT-4: 84069 07/27/2015 PROTHROMBIN TIME CPT-4: 93642 07/27/2015 URINALYSIS NONAUTO W /O SCOPE CPT-4: 70948 06/30/2015 URINE CULTURE/ COLON Y COUNT CPT-4: 90941 06/30/2015 ROUTINE VENIPUNCTURE CPT-4: 64127 06/21/2015 PROTHROMBIN TIME CPT-4: 51015 06/21/2015 URINE CULTURE/ COLON Y COUNT CPT-4: 89469 05/31/2015 ROUTINE VENIPUNCTURE CPT-4: 09057 05/24/2015 PROTHROMBIN TIME CPT-4: 01385 05/24/2015 URINALYSIS NONAUTO W /O SCOPE CPT-4: 33483 05/24/2015 Vital Signs Date Vital 01/19/2019 Blood [...] 1: 122/70 Code: 8480-6 BMI: 32.2 Code: 63446-9 Heart Rate 1: 88 bpm Height: 5'3" Respiratory Rate: 20 bpm SpO2: 96% Temperature: 36.8 (C ) / 98.2 (F) Weight: 182 lbs 07/23/2018 Blood Pressure 1: 132/80 Code: 8480-6 Heart Rate 1: 84 bpm Respiratory Rate: 20 bpm SpO2: 96% Temperature: 36.6 (C ) / 97.8 (F) Weight: 187 lbs 07/08/2018 Blood Pressure 1: 122/70 Code: 8480-6 BMI: 32.2 Code: 42012-4 Heart Rate 1: 88 bpm Height: 5'3" Respiratory Rate: 20 bpm Temperature: 36.6 (C ) / 97.8 (F) Weight: 182 lbs 07/02/2018 Blood Pressure 1: 124/68 Code: 8480-6 BMI: 32.8 Code: 11730-3 Heart Rate 1: 84 bpm Height: 5'3" Respiratory Rate: 20 bpm SpO2: 98% Temperature: 36.3 (C ) / 97.3 (F) Weight: 185 lbs 06/02/2018 Blood Pressure 1: 132/90 Code: 8480-6 Heart Rate 1: 84 bpm Respiratory Rate: 18 bpm SpO2: 97% Temperature: 36.6 (C ) / 97.9 (F) Weight: 180 lbs 05/11/2018 Blood Pressure 1: 124/80 Code: 8480-6 BMI: 31.7 Code: 30329-6 Heart Rate 1: 88 bpm Height: 5'3" Respiratory Rate: 20 bpm Temperature: 37.0 (C ) / 98.6 (F) Weight: 179 lbs 04/02/2018 Blood Pressure 1: 122/80 Code: 8480-6 Heart Rate 1: 78 bpm Respiratory Rate: 18 bpm SpO2: 97% Temperature: 36.2 (C ) / 97.1 (F) Weight: 181 lbs 8 oz 03/16/2018 Blood Pressure 1: 114/82 Code: 8480-6 BMI: 31.4 Code: 51584-8 Heart Rate 1: 76 bpm Height: 5'3" Respiratory Rate: 20 bpm Temperature: 37.0 (C ) / 98.6 (F) Weight: 177 lbs 02/16/2018 Blood Pressure 1: 114/72 Code: 8480-6 BMI: 31.7 Code: 67642-8 Heart Rate 1: 84 bpm Height: 5'3" Respiratory Rate: 20 bpm Temperature: 37.0 (C ) / 98.6 (F) Weight: 179 lbs 01/26/2018 Blood Pressure 1: 118/78 Code: 8480-6 BMI: 31.7 Code: 97893-2 Heart Rate 1: 80 bpm Height: 5'3" Respiratory Rate: 20 bpm SpO2: 98% Temperature: 36.4 (C ) / 97.6 (F) Weight: 179 lbs 01/01/2018 Blood Pressure 1: 11278 Code: 8480-6 Heart Rate 1: 86 bpm Height: 5'3" Respiratory Rate: 22 bpm SpO2: 98% Temperature: 36.6 (C ) / 97.8 (F) Weight: 12/25/2017 Blood Pressure 1: 136 Code: 8480-6 BMI: 31.5 Code: 99671-0 Heart Rate 1: 84 bpm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 [place] [address] ACUTE ILLNESS 09/08/2018 Patient Education: cefdinir- [employer] Coupon [id number] [email or web address] Completed 09/08/2018 Appointment: Kristine Brambila WPtel: [address] [place] [address] LAB 08/14/2018 Visit Diagnosis Plan: Otalgia, left [...] ICD-10 : J01.90 07/23/2018 Appointment: Ivon Sky [address] [place] [address] ACUTE ILLNESS 07/23/2018 Patient Education: cyclobenzaprine- Opti mize[employer] Coupon [id number] [email or web address] Completed 07/23/2018 Visit Diagnosis Plan: Streptococcal infe ction, unspecified site Discussion: Pen Jude Dove Sees dentist today t o assess tooth ICD-9 : 041.00 ICD-10 : A49.1 07/08/2018 Appointment: Kristine Brambila WPtel: [facility] [place] [id number] FOLLOW UP 07/08/2018 Patient Education: penicillin V potassiu m- [employer] Coupon [id number] [email or web address] Completed 07/08/2018 Visit Diagnosis Plan: Localized enlarged [...] ICD-10 : K04.6 07/02/2018 Appointment: Ivon Sky [address] [place], [place] [id number] ACUTE ILLNESS 07/02/2018 Appointment: Kristine Brambila WPtel: [address] [place] [phone] [place] LAB 06/22/2018 Appointment: Kristine Brambila WPtel: [address] [place] [phone] [place] UA 06/17/2018 Visit Diagnosis Plan: Acute sinusitis, unspecified Discussion: dc keflex. start cefdinir daily for 10 days. saline up nares prn congestion. if no improvement after antibiotics or worsening symtpoms, call clinic. 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 clindamycin prescribed for patient to take as directed. instructed to stop nasal sprays due to worsening pain/irritation and only use saline rinse up nares for now. call with any new or worsening symptoms. ICD-9 : 461.9 ICD-10 : J01.90 04/02/2018 Appointment: Ivon Sky [address] [place] [address] ACUTE ILLNESS 04/02/2018 Patient Education: Patient Medication Summary Completed 04/02/2018 Appointment: Kristine Brambila WPtel: [address] [place] [address] LAB 03/24/2018 Patient Education: Patient Medication Summary [...] ICD-10 : J30.89 03/16/2018 Appointment: Ivon Sky [address] [place] [address] ACUTE ILLNESS 03/16/2018 Patient Education: Patient Medication Summary Completed 03/16/2018 Appointment: Kristine Brambila WPtel: [address] [place] [address] LAB 02/24/2018 Patient Education: Patient Medication Summary Completed 02/24/2018 Appointment: Kristine Brambila WPtel: [address] [place] [address] [place] RESCHEDULED 02/18/2018 Visit Diagnosis Plan: Abdominal distension (gaseous) Discussion: Flagyl Restora Rx 1 daily Follow Up: 2 weeks ICD-9 : 787.3 ICD-10 : R14.0 02/16/2018 Visit Diagnosis Plan: Epigastric pain Discussion: Pepcid BID ICD-9 : 789.06 ICD-10 : R10.13 02/16/2018 Visit Diagnosis Plan: Diarrhea, unspecified Discussion: Flagyl ICD-9 : 787.91 ICD-10 : R19.7 02/16/2018 Appointment: Kristine Brambila WPtel: [address] [place] [address] ACUTE ILLNESS 02/16/2018 Patient Education: Patient Medication Summary Completed 02/16/2018 Appointment: Kristine Brambila WPtel: [address] [place] [address] [place] INJECTION 02/05/2018 Patient Education: Patient Medication Summary Completed 02/05/2018 Appointment: Kristine Brambila WPtel: [address] [place] [address] [place] INJECTION 01/29/2018 Patient Education: Patient Medication Summary Completed 01/29/2018 Appointment: Kristine Brambila WPtel: [address] [place] [address] [place] INJECTION 01/28/2018 Patient Education: Patient Medication [...] ICD-10 : Z77.21 01/26/2018 Appointment: Ivon Sky [address] [place] [address] ACUTE ILLNESS 01/26/2018 Patient Education: Patient Medication [...] ICD-10 : K13.79 01/01/2018 Appointment: Ivon Sky [address] [place] [id number] ACUTE ILLNESS 01/01/2018 Patient Education: Patient [...] : G43.909 12/25/2017 Appointment: Ivon Sky [address] [place] [id number] ACUTE ILLNESS 12/25/2017 Patient Education: Patient Medication Summary Completed 12/25/2017 Visit Diagnosis Plan: Acute pharyngitis, unspecified Discussion: rapid strep negative. rocephin injection given in office. clindamycin prescribed as well to start tomorrow for 10 days. increase fluid intake. call or rtc next week if new or worsening symptoms. ICD-9 : 462 ICD-10 : J02.9 12/11/2017 Appointment: Ivon Sky 504 [facility] ACUTE ILLNESS 12/11/2017 Patient Education: Patient Medication Summary Completed 12/11/2017 Appointment: Kristine Brambila WPtel: [phone] [facility] [place] LAB 12/01/2017 Patient Education: Patient Medication Summary Completed 12/01/2017 Visit Diagnosis Plan: Encounter for gyne cological examination (general) (routine) without abnormal findings Discussion: Pap done as has a history of choriocarcinoma Had mammogram last month ICD-9 : V72.31 ICD-10 : Z01.419 11/05/2017 Appointment: Kristine Brambila WPtel: [address] [place] [address] Annual Well Visit 11/05/2017 Patient Education: Patient Medication Summary Completed 11/05/2017 Appointment: Kristine Brambila WPtel: [address] [place] [address] [place] LAB 10/14/2017 Patient Education: Patient Medication Summary Completed 10/14/2017 Care Plan: X-RAY EXAM OF SHOULDER right LOINC : 86519-6 Pending 10/07/2017 Visit Diagnosis Plan: Pain in right shoulder Discussion: xray ordered of right shoulder to rule out fracture. 40 mg kenalog given as one shot to assist with pain. ICD-9 : 719.41 ICD-10 : M25.511 10/06/2017 Visit Diagnosis Plan: prison (current ) use of anticoagulants Discussion: pt/inr completed at today's visit. ICD-9 : V58.61 ICD-10 : Z79.01 10/06/2017 Appointment: Ivon Sky [address] [place] [address] ACUTE ILLNESS 10/06/2017 Patient Education: Patient Medication [...] : R20.2 10/01/2017 Appointment: Kristine Brambila WPtel: [address] [place] [address] ACUTE ILLNESS 10/01/2017 Patient Education: Patient Medication [...] ICD-10 : T23.262A 09/10/2017 Appointment: Ivon Sky [address] [place] [address] ACUTE ILLNESS 09/10/2017 Patient Education: Patient Medication Summary Completed 09/10/2017 Appointment: Kristine Brambila WPtel: [address] [place] [address] [place] INJECTION 09/05/2017 Patient Education: Patient Medication Summary Completed 09/05/2017 Appointment: Kristine Brambila WPtel: [address] [place] [address] [place] LAB 09/04/2017 Patient Education: Patient Medication Summary Completed 09/04/2017 Appointment: Kristine Brambila WPtel: [address] [place] [address] LAB 08/07/2017 Patient Education: Patient Medication Summary Completed 08/07/2017 Patient Education: Patient Medication Summary Completed 07/21/2017 Care Plan: CHEST X-RAY 2VW FRONTAL&LATL LOINC : 04284-7 Pending 07/21/2017 Visit Diagnosis Plan: Acute upper [...] : 530.81 ICD-10 : K21.9 07/15/2017 Appointment: Robinson Skyjanet DevlinImelda 504 [facility] ACUTE ILLNESS 07/15/2017 Patient Education: Patient Medication Summary Completed 07/15/2017 Appointment: Kristine Brambila WPtel: [address] [place] [phone] [place] INJECTION 07/04/2017 Patient Education: Patient Medication Summary Completed 07/04/2017 Appointment: Kristine Brambila WPtel: [address] [place] [phone] [place] INJECTION 07/02/2017 Patient Education: Patient Medication Summary Completed 07/02/2017 Visit Diagnosis Plan: Otitis media, unspecified, left ear Discussion: due to patient being on multiple antibiotics lately, rocephin shot to be given for 3 days in office. tylenol for pain relief. ICD-9 : 380.14 ICD-10 : H66.92 07/01/2017 Visit Diagnosis Plan: Localized enlarged lymph nodes [...] ICD-9 : 785.6 ICD-10 : R59.0 07/01/2017 Appointment: Ivon Sky [address] [place], [place] [id number] ACUTE ILLNESS 07/01/2017 Patient Education: Patient Medication Summary Completed 07/01/2017 Care Plan: US EXAM OF HEAD AND NECK Pending 07/01/2017 Appointment: Kristine Brambila WPtel: [address] [place] [phone] [place] LAB 06/19/2017 Patient Education: Patient Medication [...] ICD-10 : J18.9 05/27/2017 Appointment: Ivon Sky [address] [place], [place] [id number] ACUTE ILLNESS 05/27/2017 Patient Education: [...] : G47.00 05/20/2017 Appointment: Ivon Sky 504 [facility]6[address] ACUTE ILLNESS 05/20/2017 Patient Education: Patient Medication Summary Completed 05/20/2017 Visit Diagnosis Plan: Diplopia Discu ssion: Updated dilated eye exam ICD-9 : 368.2 ICD-10 : H53.2 04/22/2017 Visit Diagnosis Plan: Headache Discu ssion: Discussed likely Migraine Discussed MRI results Discussed changing acetazolamide to HCTZ ICD-9 : 784.0 ICD-10 : R51 04/22/2017 Appointment: Kristine Brambila WPtel: [address] [place] [phone] [place] FOLLOW UP 04/22/2017 Patient Education: Patient Medication Summary Completed 04/22/2017 Appointment: Kristine Brambila WPtel: [address] [place], [place] [phone] [place] RESCHEDULED 04/07/2017 Visit Plan: Saline nasal flushes pr n. Tylenol/Motrin prn headache. Notify if persists/symptoms worsening. 04/01/2017 Visit Plan: Saline nasal flushes pr n. Tylenol/Motrin prn headache. Notify if persists/symptoms worsening. 04/01/2017 Visit NOS Plan: Plan Notes: Saline nasal flushes prn. Tyle... 04/01/2017 Visit Diagnosis Plan: Acute sinusitis, unspecified Discussion: Kenalog 40mg IM x1 Decadron/Garamycin Nose Roark Mix Has appointment on April 28 with ENT ICD-9 : 461.9 ICD-10 : J01.90 04/01/2017 Appointment: Kristine Brambila WPtel: [address] [place] [address] ACUTE ILLNESS 04/01/2017 Patient Education: Patient Medication Summary Completed 04/01/2017 Referral: Serjio Lugo WPtel: [address] Referral Appointment Requested 03/20/2017 Patient Education: Patient Medication Summary Completed 02/27/2017 Care Plan: CT ABDOMEN W/O DYE abd/pe lvis stone search LOINC : 14499-4 Pending 02/27/2017 Patient Education: Patient Medication Summary Completed 02/12/2017 Care Plan: MRI NECK SPINE W/O DYE LOINC : 67608-0 Pending 02/12/2017 Appointment: Kristine Brambila WPtel: [facility] LAB 02/10/2017 Patient Education: Patient Medication [...] Rest, Fluids... 02/05/2017 Appointment: Kristine Brambila WPtel: [address] [place], [place] [phone] ACUTE ILLNESS 02/05/2017 Patient Education: Patient Medication Summary Completed 02/05/2017 Care Plan: Referral Order SNOMED-CT : [id number] Pending 02/05/2017 Appointment: Kristine Brambila WPtel: [address] [place], [place] [phone] THROAT SWAB 02/03/2017 Patient Education: Patient Medication Summary Completed 02/03/2017 Appointment: Kristine Brambila WPtel: [address] [place] [address] 01/13 canceled~sl CANCELED 01/28/2017 Visit Plan: Supportive [...] Rest, Fluids... 01/13/2017 Appointment: Kristine Brambila WPtel: [address] [place], [place] [phone] ACUTE ILLNESS 01/13/2017 Patient Education: Patient Medication Summary Completed 01/13/2017 Appointment: Kristine Brambilatel: [facility]7 [facility] LAB 12/18/2016 Patient Education: Patient Medication Summary Completed 12/18/2016 Visit Diagnosis Plan: Pain in unspecified joint Discussion: Will retry methotrexate since has worked in past to greatly reduce patient's pain--4 tabs week one then 5 tabs week 2 then 6 tabs weekly and fwup in 6 weeks ICD-9 : 719.49 ICD-10 : M25.50 11/27/2016 Appointment: Kristine Brambila WPtel: [facility] [place] [phone] 6/ lm~sl 11/26 confimed~sl MEDICATION REVIEW 11/27/2016 Patient [...] ICD-10 : J06.9 08/27/2016 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 Discussion: PT/INR drawn ICD-9 : V58.61 ICD-10 : Z79.01 08/27/2016 Visit Diagnosis Plan: Dysuria Discus steven: Culture urine ICD-9 : 788.1 ICD-10 : R30.0 08/27/2016 Appointment: Kristine Brambila WPtel: [facility] 3/ confirmed`sl MEDICATION REVIEW 08/27/2016 Patient Education: Patient Medication Summary Completed 08/27/2016 Appointment: Kristine Brambila WPtel: [address] [place], [place] [phone] BP CHECK 07/08/2016 Patient Education: Patient Medication Summary Completed 07/08/2016 Appointment: Kristine Brambila WPtel: [address] [place] [phone] [place] LAB 05/24/2016 Patient Education: Patient Medication Summary Completed 05/24/2016 Appointment: Kristine Brambila WPtel: [address] [place] [phone] 04/24 will not be able to get [...] with culture results 04/23/2016 Appointment: Nayeli Anderson [address] [place] [address] ACUTE ILLNESS 04/23/2016 Patient Education: Patient Medication [...] add oral abx 04/17/2016 Appointment: Nayeli Anderson [address] [place], [place] [address] ACUTE ILLNESS 04/17/2016 Patient Education: Patient Medication Summary Completed 04/17/2016 Patient Education: [facility] - Saving AutoInj - 18-64 - Dynamic Portal ID Completed 04/17/2016 Appointment: Kristine Brambila WPtel: [address] [place] [phone] [place] LAB 04/11/2016 Patient Education: Patient Medication [...] migraines 03/12/2016 Appointment: Kristine Brambila WPtel: [phone] [facility] 03/12 confirmed-sp FOLLOW UP 03/12/2016 Patient Education: Patient Medication Summary Completed 03/12/2016 Appointment: Kristine Brmabila WPtel: [phone] [facility]6[address] LAB 02/12/2016 Patient Education: Patient Medication Summary Completed 02/12/2016 Appointment: Kristine Brambila WPtel: [phone] [facility]6676[facility] LAB 02/01/2016 Patient Education: Patient Medication Summary Completed 02/01/2016 Appointment: Kristine Brambila WPtel: [phone] [facility]6676[facility] LAB 01/22/2016 Patient Education: Patient Medication [...] improvement 11/10/2015 Appointment: Julee Slater WPtel: [phone] [facility]6676[facility] ACUTE ILLNESS 11/10/2015 Patient Education: Patient Medication [...] care otherwise 11/09/2015 Appointment: Nayeli Anderson [address] [facility] ACUTE ILLNESS 11/09/2015 Patient Education: Patient Medication Summary Completed 11/09/2015 Referral: Maximiliano Neves WPtel: [phone] [id number] [place] Spoke with Sally at Dr. Ta's offic e. Patient is scheduled for 10/16/15 at 3:15pm. Demographics and notes have been faxed. Patient has been informed. -sp Initi ated 10/16/2015 Visit Plan: Proceed with biopsy/rem oval of right posterior neck node Mammogram ordered--US of right axilla if needed 10/10/2015 Appointment: Kristine Brambila WPtel: [phone] [facility] 10/08 confirmed ~sl FOLLOW UP 10/10/2015 Patient Education: Patient Medication Summary Completed 10/10/2015 Patient Education: [facility] - Saving AutoInj - 18-64 - Dynamic Portal ID Completed 10/10/2015 Care Plan: MAMMOGRAM SCREENING LOINC : 57999-7 Pending 10/10/2015 Visit Plan: Labs ordered - [...] week for senior living management of pain 10/02/2015 Visit Plan: Labs [...] week for senior living management of pain 10/02/2015 Appointment: Nayeli Anderson 2[address] [facility]6676[facility] ACUTE ILLNESS 10/02/2015 Patient Education: Patient Medication Summary Completed 10/02/2015 Patient Education: [facility] - Saving AutoInj - 18-64 - Dynamic Portal ID Completed 10/02/2015 Care Plan: US EXAM OF HEAD AND NECK Pending 10/02/2015 Appointment: Kristine Brambila WPtel: [address] [place], [place] [phone] [place] LAB 09/29/2015 Patient Education: Patient Medication Summary Completed 09/29/2015 App[facility]ment: [facility]el[phone] [facility] 07/27/2015 Patient Education: Patient Medication Summary Completed 07/27/2015 Visit Plan: Trial of Savella Did no t tolerate lyrica Did not tolerate cymbalta 07/10/2015 Appointment: Kristine [facility]ambila [facility]Ptel[phone] 07/10 appt confirmed cn FOLLOW UP 07/10/2015 Patient Education: Patient Medication Summary Completed 07/10/2015 Appointment: Kristine [facility]ambila WPtel[phone] [facility] UA 06/30/2015 Patient Education: Patient Medication Summary Completed 06/30/2015 Visit Plan: Recommended Vitamin E o il topically bid to area of scar. Currently taking Amoxicillin for sinusitis. Recommend Flonase nasal spray 06/27/2015 Visit Plan: Recommended Vitamin E o il topically bid to area of scar. Currently taking Amoxicillin for sinusitis. Recommend Flonase nasal spray 06/27/2015 Appointment: VanBecMeli diaz WPtel: [address] [place], [place] [phone] ACUTE ILLNESS 06/27/2015 Patient Education: Patient Medication Summary Completed 06/27/2015 Appointment: Meli Hatch WPtel: [phone] [facility] 06/22/15 appt confirmed and she will dreacharisma garcia new insurance card ACUTE ILLNESS 06/26/2015 Appointment: Kristine Brambila WPtel: [phone] [facility] [place] LAB 06/21/2015 Patient Education: Patient Medication Summary Completed 06/21/2015 Visit Plan: Add cymbalta at 30mg da loli Repeat PT/INR in 2weeks Recheck 1mo Awaiting ID to reschedule 06/08/2015 Visit Plan: Add cymbalta at 30mg da loli Repeat PT/INR in 2weeks Recheck 1mo Awaiting ID to reschedule 06/08/2015 Appointment: Kristine Brambila WPtel: [address] [place], [place] [phone] 06/07 lm ~sl 06/08 confirmed ~sl FOLLOW UP 06/08/2015 Patient Education: Patient Medication Summary Completed 06/08/2015 Patient Education: [facility] - Saving AutoInj - Cymbalta - 18-64 - Dynamic Portal ID Completed 06/08/2015 Patient Education: [facility] - Saving AutoInj - 18-64 - Dynamic Portal ID Completed 06/08/2015 Appointment: Kristine Brambila WPtel: [phone] [facility] [place] UA 05/31/2015 Patient Education: Patient Medication Summary Completed 05/31/2015 Visit Plan: Check PT/INR today Stop ped Lyrica due to fluid retention Has appt. scheduled at [facility] with hematology and infectious disease 06/08 Follow-up appt. in 2 weeks following appt. at . 05/24/2015 Visit Plan: Check PT/INR today Stop ped Lyrica due to fluid retention Has appt. scheduled at [facility] with hematology and infectious disease 06/08 Follow-up appt. in 2 weeks following appt. at . 05/24/2015 Appointment: Meli Hatch WPtel: [phone] [id number] [place] NEW PATIENT 05/24/2015 Patient Education: Patient Medication Summary Completed 05/24/2015 Patient Education: [facility] - Saving AutoInj - 18-64 - Dynamic Portal ID Completed 05/24/2015 Referral: DillonnellaJonathan colemanie WPtel: [facility] [address] [facility] [place] Referral Initiated Instructions Comment . Rapid [...] scheduled at [facility] with hematology and infectious disease 06/08 Follow-up appt. in 2 weeks following appt. at . . Check PT/INR today Stopped Lyrica due to fluid retention Has appt. 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 Recommended Vitami n [...]
--- OUTSIDE RECORDS SUMMARY | 2020-01-28 14:24 | XMS REPORT | CCD ---
Author Author Heydi Hatch APRN Organization [facility] Address [address] [place] [address] Phone Care Team Providers Care Aviation Electronics Technician Name Role Phone Kristine Brambila D.O., PP Unavailable CCM Unavailable Summary Purpose Interface Exchange Insurance Providers Payer name Policy type / Coverage type Covered libertarian ID Effective Begin Date Effective End Date Blue Cross Blue Shield Blue Cross/Bl ue Shield [id number] 2018 Un known Family History Family History data not found Social History Social History Element Codes Description Effective Dates Tobacco history SNOMED CT: 51329004 Current every day smoker 06/08/2015 Allergies, Adverse [...] ICD-9: 786.2 ICD-10: R05 Active 07/21/2017 Unknown residential (current) use of anticoagulants ICD-9: V58.61 ICD-10: [...] 02/10/2017 Unknown Pelvic and perineal pain ICD-9: [id number] ICD-10: R10.2 Active 02/10/2017 Unknown Cervicalgia ICD-9: [...] COUGH ICD-9: 786.2 ICD-10: R05 07/21/2017 Active residential (current) use of anticoagulants ICD-9: V58.61 ICD-10: [...] 02/10/2017 Active Pelvic and perineal pain ICD-9: [id number] ICD-10: R10.2 02/10/2017 Active Cervicalgia ICD-9: 723.1 [...] Fill Instructions Diflucan 150 mg tablet RxNorm: 600315 Tablet(s) TABLET(S) 1 TABLET(S) PO QW NEEDED 01/28/2019 No Stop Date Active Vistaril 25 mg capsule RxNorm: 577229 1 Capsule(s) PO TID 01/27/2019 07/25/2019 Active ProAir HFA 90 mcg/ac tuation aerosol inhaler RxNorm: 990027 2 Puff(s) INH Q4H as needed 01/20/2019 No Stop Date Active Tessalon Perles 100 mg capsule RxNorm: 127092 1 Capsule(s) PO TID a s needed for cough 01/20/2019 No Stop Date Active doxycycline hyclate 100 mg capsule RxNorm: 4900356 1 Capsule(s) PO BID 01/20/2019 01/19/2019 In active doxycycline hyclate 100 mg capsule RxNorm: 5764868 1 Capsule(s) PO BID 01/20/2019 01/26/2019 In active Coumadin 5 mg tablet RxNorm: 163740 1 Tablet(s) PO QD (on Fri, , Fri, , Fri and Fri) 01/05/2019 06/09/2019 Active Generic For:COUMADIN 5MG TAB 05/25/2018 3:20:45 PM N O T I C E Last quantity doesn't match original quantity amoxicillin 500 mg c apsule RxNorm: 347260 1 Capsule(s) PO BID 01/05/2019 01/14/2019 Inactive amoxicillin 500 mg c apsule RxNorm: 396697 1 Capsule(s) PO BID 01/05/2019 01/04/2019 Inactive hydrocodone 10 mg-ac etaminophen 325 mg tablet RxNorm: 614873 1 Tablet(s) PO Q4-6H as needed for pain 01/01/2019 No Stop Date Active cyclobenzaprine 10 m g tablet RxNorm: 505595 1 TABLET(S) PO QD NEEDED 12/23/2018 06/20/2019 Ac tive Coumadin 5 mg tablet RxNorm: 762583 Tablet(s) TAKE 1 TABLET(S) BY MOUTH FRI, FRI, FRI, Friday12/23/2018 01/04/2019 Inactive Generic For:COUMADIN 5MG TA B 05/25/2018 3:20:45 PM N O T I C E Last quantity doesn't match original quantity Diflucan 150 mg tablet RxNorm: 554717 Tablet(s) TABLET(S) 1 TABLET(S) PO QW NEEDED 12/23/2018 01/27/2019 Inactive Vitamin D2 50,000 un it capsule RxNorm: 2730879 1 Capsule(s) PO QW 12/04/2018 03/03/2019 Active Medrol (Juan Francisco) 4 mg ta blets in a dose pack RxNorm: 230819 Tablet(s) PO as direc liane 12/04/2018 12/03/2018 In active Vitamin D2 50,000 un it capsule RxNorm: 5685306 1 Capsule(s) PO QW 12/04/2018 12/03/2018 Inactive Medrol (Juan Francisco) 4 mg ta blets in a dose pack RxNorm: 880189 Tablet(s) PO as direc liane 12/04/2018 01/19/2019 In active Zithromax Z-Juan Francisco 250 mg tablet RxNorm: 956022 Tablet(s) PO take as directed 12/02/2018 No Stop Date Active Vistaril 25 mg capsule RxNorm: 186767 Capsule(s) 1 Capsule(s) PO TID as needed for anxiety 11/30/2018 02/27/2019 Active Coumadin 5 mg tablet RxNorm: 881626 Tablet(s) TAKE 1 TABLET(S) BY MOUTH FRI, FRI, FRI, Friday11/30/2018 12/22/2018 Inactive Generic For:COUMADIN 5MG TA B 05/25/2018 3:20:45 PM N O T I C E Last quantity doesn't match original quantity Diflucan 150 mg tablet RxNorm: 690459 Tablet(s) TABLET(S) 1 TABLET(S) PO QW NEEDED 11/26/2018 12/22/2018 Inactive cholestyramine (with sugar) 4 gram oral powder RxNorm: 714069 1 UNIT DOSE PO QD 11/24/2018 02/21/2019 Ac tive acetazolamide 125 mg tablet RxNorm: 883601 1 Tablet(s) PO BID 11/24/2018 02/21/2019 Active cyclobenzaprine 10 m g tablet RxNorm: 533117 1 Tablet(s) PO QD as needed 11/17/2018 12/22/2018 In active hydrocodone 10 mg-ac etaminophen 325 mg tablet RxNorm: 206835 1 Tablet(s) PO Q4-6H as needed for pain 11/05/2018 No Stop Date Active acetazolamide 125 mg tablet RxNorm: 516125 1 TABLET(S) PO BID 10/26/2018 11/23/2018 Inactive cholestyramine (with sugar) 4 gram oral powder RxNorm: 011969 1 UNIT DOSE PO QD 10/26/2018 11/23/2018 In active Coumadin 5 mg tablet RxNorm: 601369 TAKE 1 TABLET(S) BY MOUTH FRI, FRI, FRI, Friday10/26/2018 11/29/2018 Inactive Generic For:COUMADIN 5MG TAB 05/25/2018 3:20:45 PM N O T I C E Last quantity doesn't match original quantity Diflucan 150 mg tablet RxNorm: 014665 TABLET(S) 1 TABLET(S) PO QW NEEDED 10/26/2018 11/25/2018 In active hydrocodone 10 mg-ac etaminophen 325 mg tablet RxNorm: 365312 1 Tablet(s) PO Q4-6H as needed for pain 10/08/2018 11/04/2018 Inactive acetazolamide 125 mg tablet RxNorm: 723259 1 Tablet(s) PO BID 09/24/2018 10/23/2018 Inactive Coumadin 5 mg tablet RxNorm: 741357 TAKE 1 TABLET(S) BY MOUTH FRI, FRI, FRI, Friday09/24/2018 10/25/2018 Inactive Generic For:COUMADIN 5MG TAB 05/25/2018 3:20:45 PM N O T I C E Last quantity doesn't match original quantity Diflucan 150 mg tablet RxNorm: 287366 Tablet(s) 1 Tablet(s) PO QW as needed 09/24/2018 10/25/2018 In active cyclobenzaprine 10 m g tablet RxNorm: 098769 1 Tablet(s) PO QD as needed 09/24/2018 11/16/2018 In active Vistaril 25 mg capsule RxNorm: 136855 1 Capsule(s) PO TID as needed for anxiet y 09/24/2018 11/29/2018 In active cholestyramine (with sugar) 4 gram oral powder RxNorm: 594386 1 Unit Dose PO QD 09/24/2018 10/23/2018 In active Pyridium 200 mg tablet RxNorm: 0463711 1 Tablet(s) PO TID 09/10/2018 09/19/2018 Inactive Pyridium 200 mg tablet RxNorm: 4142477 1 Tablet(s) PO TID 09/10/2018 09/09/2018 Inactive hydrocodone 10 mg-ac etaminophen 325 mg tablet RxNorm: 206408 1 Tablet(s) PO Q4-6H as needed for pain 09/08/2018 10/07/2018 Inactive cefdinir 300 mg capsule RxNorm: 112625 1 Capsule(s) PO BID 09/08/2018 09/21/2018 Inactive hydrocodone 10 mg-ac etaminophen 325 mg tablet RxNorm: 258582 1 Tablet(s) PO Q4-6H as needed for pain 08/13/2018 09/07/2018 Inactive cyclobenzaprine 10 m g tablet RxNorm: 646230 1 Tablet(s) PO QD as needed 07/23/2018 09/23/2018 In active Diflucan 150 mg tablet RxNorm: 351416 Tablet(s) 1 Tablet(s) PO QW as needed 07/23/2018 09/23/2018 In active Ciprodex 0.3 %-0.1 % ear drops,suspension RxNorm: 659024 4 Drop(s) left otic ( ear) BID 07/23/2018 07/29/2018 Inactive hydrocodone 10 mg-ac etaminophen 325 mg tablet RxNorm: 890468 1 Tablet(s) PO Q4-6H as needed for pain 07/16/2018 08/12/2018 Inactive penicillin V potassi um 500 mg tablet RxNorm: 361884 1 Tablet(s) PO Q6H 07/08/2018 07/17/2018 In active cyclobenzaprine 10 m g tablet RxNorm: 040805 1 Tablet(s) PO QD as needed 06/22/2018 07/22/2018 In active Vistaril 25 mg capsule RxNorm: 446507 1 Capsule(s) PO TID as needed for anxiet y 06/22/2018 09/23/2018 In active cholestyramine (with sugar) 4 gram oral powder RxNorm: 873134 1 Unit Dose PO QD 06/22/2018 09/23/2018 In active hydrocodone 10 mg-ac etaminophen 325 mg tablet RxNorm: 481645 1 Tablet(s) PO Q4-6H as needed for pain 06/17/2018 07/15/2018 Inactive cefdinir 300 mg capsule RxNorm: 299591 1 Capsule(s) PO BID 06/02/2018 06/11/2018 Inactive Diflucan 150 mg tablet RxNorm: 549113 Tablet(s) 1 Tablet(s) PO QW as needed 06/02/2018 07/22/2018 In active Coumadin 5 mg tablet RxNorm: 443769 TAKE 1 TABLET(S) BY MOUTH FRI, FRI, FRI, Friday05/25/2018 07/15/2018 Inactive Generic For:COUMADIN 5MG TAB 05/25/2018 3:20:45 PM N O T I C E Last quantity doesn't match original quantity Imitrex 50 mg tablet RxNorm: 055074 Tablet(s) 1 Tablet(s) PO at headache. re peat in 2 hours if no relief. no more than 2 tabs per day 05/19/2018 No Stop Date Active cholestyramine (with sugar) 4 gram oral powder RxNorm: 445887 1 Unit Dose PO QD 05/19/2018 11/14/2018 In active Vistaril 25 mg capsule RxNorm: 598885 1 Capsule(s) PO TID 05/19/2018 11/14/2018 Inactive Coumadin 5 mg tablet RxNorm: 507206 Tablet(s) TAKE 1 TABLET(S) BY MOUTH FRI, FRI, FRI, Friday05/19/2018 05/24/2018 Inactive Generic For:COUMADIN 5MG TA B N O T I C E Last quantity doesn't match original quantity acetazolamide 125 mg tablet RxNorm: 040645 1 Tablet(s) PO BID 05/19/2018 09/23/2018 Inactive cyclobenzaprine 10 m g tablet RxNorm: 834820 1 Tablet(s) PO QD as needed 05/19/2018 11/17/2018 In active Coumadin 7.5 mg tablet RxNorm: 588184 1 Tablet(s) PO QD , , 05/19/2018 01/04/2019 In active ketorolac 10 mg tablet RxNorm: 625959 1 Tablet(s) PO QHS as needed 05/11/2018 No Stop Date Active promethazine 12.5 mg tablet RxNorm: 585005 1 Tablet(s) PO Q6H as needed 04/23/2018 04/22/2018 In active acetazolamide 125 mg tablet RxNorm: 531017 1 Tablet(s) PO BID 04/23/2018 05/18/2018 Inactive Coumadin 5 mg tablet RxNorm: 449377 TAKE 1 TABLET(S) BY MOUTH FRI, FRI, FRI, Friday04/23/2018 05/18/2018 Inactive Generic For:COUMADIN 5MG TAB N O T I C E Last quantity doesn't match original quantity Imitrex 50 mg tablet RxNorm: 969036 1 Tablet(s) PO at headache. repeat in 2 hours if no relief. no more than 2 tabs per day 04/23/2018 05/18/2018 Inactive cyclobenzaprine 10 m g tablet RxNorm: 139157 1 Tablet(s) PO QD as needed 04/23/2018 05/18/2018 In active clindamycin HCl 300 mg capsule RxNorm: 160602 1 Capsule(s) PO TID 04/02/2018 04/11/2018 Inactive hydrocodone 10 mg-ac etaminophen 325 mg tablet RxNorm: 107865 1 Tablet(s) PO Q4-6H as needed for pain 03/24/2018 06/16/2018 Inactive promethazine 12.5 mg tablet RxNorm: 805496 1 Tablet(s) PO Q6H 03/23/2018 04/23/2018 Inactive Imitrex 50 mg tablet RxNorm: 677510 1 Tablet(s) PO at headache. repeat in 2 hours if no relief. no more than 2 tabs per day 03/23/2018 04/22/2018 Inactive Diflucan 150 mg tablet RxNorm: 307772 1 Tablet(s) PO QW as needed 03/23/2018 06/01/2018 Inactive Coumadin 5 mg tablet RxNorm: 759949 Tablet(s) 1 Tablet(s) PO Mon, Fri, Fri, Sun 03/23/2018 04/22/2018 In active Imitrex 100 mg tablet RxNorm: 623700 Tablet(s) PO take one tablet at sign of headache and repeat in 2 hours if ineffective 03/16/2018 04/01/2018 Inactive ondansetron HCl 4 mg tablet RxNorm: 067308 1 Tablet(s) PO Q4H as needed for nausea 02/24/2018 04/01/2018 In active hydrocodone 10 mg-ac etaminophen 325 mg tablet RxNorm: 940906 1 Tablet(s) PO Q4-6H as needed for pain 02/24/2018 03/23/2018 Inactive Coumadin 5 mg tablet RxNorm: 621690 Tablet(s) 1 Tablet(s) PO Mon, Wed, Fri, Sun 02/20/2018 03/22/2018 In active promethazine 12.5 mg tablet RxNorm: 688505 1 Tablet(s) PO Q6H 02/20/2018 03/22/2018 Inactive Pepcid 40 mg tablet RxNorm: 863813 1 Tablet(s) PO BID for stomach 02/16/2018 03/17/2018 In active Flagyl 500 mg tablet RxNorm: 716276 1 Tablet(s) PO TID 02/16/2018 02/25/2018 Inactive Imitrex 50 mg tablet RxNorm: 068158 1 Tablet(s) PO at headache. repeat in 2 hours if no relief. no more than 2 tabs per day 01/27/2018 03/15/2018 Inactive Coumadin 5 mg tablet RxNorm: 516975 1 Tablet(s) PO Mon, Fri, Fri, Sun 01/27/2018 02/20/2018 In active amoxicillin 875 mg t ablet RxNorm: 663250 1 Tablet(s) PO BID 01/26/2018 02/04/2018 Inactive Imitrex 50 mg tablet RxNorm: 381139 1 Tablet(s) PO at headache. repeat in 2 hours if no relief. no more than 2 tabs per day 01/26/2018 03/22/2018 Inactive cyclobenzaprine 10 m g tablet RxNorm: 113872 1 Tablet(s) PO QD as needed 01/23/2018 03/23/2018 In active promethazine 12.5 mg tablet RxNorm: 780699 1 Tablet(s) PO Q6H 01/23/2018 02/19/2018 Inactive Diflucan 150 mg tablet RxNorm: 309373 1 Tablet(s) PO QW as needed 01/22/2018 03/22/2018 Inactive acetazolamide 125 mg tablet RxNorm: 704585 1 Tablet(s) PO BID 01/22/2018 04/21/2018 Inactive Imitrex 50 mg tablet RxNorm: 717030 1 Tablet(s) PO at headache. repeat in 2 hours if no relief. no more than 2 tabs per day 01/02/2018 01/25/2018 Inactive Ciprodex 0.3 %-0.1 % ear drops,suspension RxNorm: 078285 4 Drop(s) otic (ear) BID 01/01/2018 01/07/2018 In active Coumadin 7.5 mg tablet RxNorm: 191858 1 Tablet(s) PO QD Tu, Th, 12/29/2017 05/18/2018 In active Coumadin 5 mg tablet RxNorm: 188781 1 Tablet(s) PO Mon, Wed, Fri, Sun 12/29/2017 01/26/2018 In active cyclobenzaprine 10 m g tablet RxNorm: 925203 1 Tablet(s) PO QD as needed 12/29/2017 01/22/2018 In active clindamycin HCl 300 mg capsule RxNorm: 311619 1 Capsule(s) PO TID 12/26/2017 12/25/2017 Inactive Imitrex 50 mg tablet RxNorm: 757900 1 Tablet(s) PO at headache. repeat in 2 hours if no relief. no more than 2 tabs per day 12/26/2017 01/01/2018 Inactive clindamycin HCl 300 mg capsule RxNorm: 227734 1 Capsule(s) PO TID 12/26/2017 01/04/2018 Inactive Zithromax Z-Juan Francisco 250 mg tablet RxNorm: 164053 Tablet(s) PO take as directed 12/25/2017 12/25/2017 In active promethazine 12.5 mg tablet RxNorm: 672493 1 Tablet(s) PO Q6H 12/25/2017 01/22/2018 Inactive clindamycin HCl 300 mg capsule RxNorm: 138851 1 Capsule(s) PO TID 12/11/2017 12/17/2017 Inactive Vistaril 25 mg capsule RxNorm: 033688 1 Capsule(s) PO TID as needed for anxiet y 12/04/2017 05/18/2018 In active cholestyramine (with sugar) 4 gram oral powder RxNorm: 744734 1 Unit Dose PO QD 12/04/2017 05/18/2018 In active Coumadin 7.5 mg tablet RxNorm: 032311 1 Tablet(s) PO QD 12/04/2017 12/28/2017 Inactive Coumadin 5 mg tablet RxNorm: 883804 1 Tablet(s) PO Friday through Friday12/04/2017 12/28/2017 In active hydrocodone 10 mg-ac etaminophen 325 mg tablet RxNorm: 327237 1 Tablet(s) PO Q4-6H as needed for pain 12/01/2017 02/23/2018 Inactive hydrocodone 10 mg-ac etaminophen 325 mg tablet RxNorm: 053532 1 Tablet(s) PO Q4-6H as needed for pain 11/03/2017 11/30/2017 Inactive cyclobenzaprine 10 m g tablet RxNorm: 839445 1 Tablet(s) PO QD as needed 10/30/2017 12/28/2017 In active cholestyramine (with sugar) 4 gram oral powder RxNorm: 472087 1 Unit Dose PO QD 10/30/2017 11/28/2017 In active amoxicillin 875 mg t ablet RxNorm: 587814 1 Tablet(s) PO BID 10/08/2017 10/07/2017 Inactive amoxicillin 875 mg t ablet RxNorm: 899376 1 Tablet(s) PO BID 10/08/2017 10/17/2017 Inactive penicillin V potassi um 500 mg tablet RxNorm: 676072 1 Tablet(s) PO BID 10/06/2017 10/07/2017 In active hydrocodone 10 mg-ac etaminophen 325 mg tablet RxNorm: 600696 1 Tablet(s) PO Q4-6H as needed for pain 10/06/2017 11/02/2017 Inactive hydrocodone 10 mg-ac etaminophen 325 mg tablet RxNorm: 004955 1 Tablet(s) PO Q4-6H as needed for pain 10/06/2017 12/31/2018 Inactive Vigamox 0.5 % eye drops RxNorm: 337487 1 Drop(s) ophthalmic (eye) TID ONLY ADMI NISTER IF INFECTION 10/03/2017 10/02/2017 Inactive Vigamox 0.5 % eye drops RxNorm: 511256 1 Drop(s) ophthalmic (eye) TID ONLY ADMI NISTER IF INFECTION 10/03/2017 10/09/2017 Inactive cholestyramine (with sugar) 4 gram oral powder RxNorm: 328293 1 Unit Dose PO QD 09/23/2017 10/30/2017 In active acetazolamide 125 mg tablet RxNorm: 830581 1 Tablet(s) PO BID 09/23/2017 12/21/2017 Inactive Coumadin 5 mg tablet RxNorm: 411608 1 Tablet(s) PO QD FRIDAY THROUGH Friday09/17/2017 11/04/2017 In active mupirocin 2 % topica l ointment RxNorm: 996684 1 Application TOP TID 09/10/2017 11/04/2017 Inactive hydrocodone 10 mg-ac etaminophen 325 mg tablet RxNorm: 583074 1 Tablet(s) PO Q4-6H as needed for pain 09/08/2017 10/05/2017 Inactive Questran 4 gram powd er for susp in a packet RxNorm: 442896 MIX ONE PACKET IN 6 O UNCES OF APPLE SAUCE OR OTHER SOFT FOOD AND EAT ONCE DAILY 09/02/2017 11/04/2017 Inactive Diflucan 150 mg tablet RxNorm: 109590 1 Tablet(s) PO QW as needed 08/14/2017 01/21/2018 Inactive hydrocodone 10 mg-ac etaminophen 325 mg tablet RxNorm: 836074 1 Tablet(s) PO Q4-6H as needed for pain 08/11/2017 09/07/2017 Inactive Tamiflu 75 mg capsule RxNorm: 285143 1 Capsule(s) PO QD 08/11/2017 08/10/2017 Inactive Tamiflu 75 mg capsule RxNorm: 656003 1 Capsule(s) PO QD 08/11/2017 08/20/2017 Inactive Coumadin 5 mg tablet RxNorm: 667054 1 Tablet(s) PO QD FRIDAY THROUGH Friday07/22/2017 09/16/2017 In active Coumadin 5 mg tablet RxNorm: 095521 TAKE ONE TABLET BY MOUTH ONCE DAILY THROUGH Friday07/16/2017 07/21/2017 Inactive cyclobenzaprine 10 m g tablet RxNorm: 936279 1 Tablet(s) PO QD as needed 07/15/2017 10/30/2017 In active hydrocodone 10 mg-ac etaminophen 325 mg tablet RxNorm: 119921 1 Tablet(s) PO Q4-6H as needed for pain 07/14/2017 08/10/2017 Inactive warfarin 5 mg tablet RxNorm: 840110 1 Tablet(s) PO Fri Sat Sun-patie nt is due for PT/INR 06/18/2017 07/15/2017 Inactive Questran Light 4 gra m powder for susp in a packet RxNorm: 7058604 1 PO QD 06/18/2017 11/04/2017 In active cyclobenzaprine 10 m g tablet RxNorm: 131160 1 Tablet(s) PO QD as needed 06/18/2017 07/14/2017 In active hydrocodone 10 mg-ac etaminophen 325 mg tablet RxNorm: 996480 1 Tablet(s) PO Q4-6H as needed for pain 06/18/2017 07/13/2017 Inactive Lunesta 1 mg tablet RxNorm: 496927 1 Tablet(s) PO QHS as needed 05/27/2017 06/25/2017 Inactive Zithromax Z-Juan Francisco 250 mg tablet RxNorm: 076456 1 Tablet(s) PO Take a s directed 05/27/2017 11/04/2017 In active ProAir HFA 90 mcg/ac tuation aerosol inhaler RxNorm: 011974 2 Puff(s) INH Q4H 05/27/2017 01/19/2019 In active ProAir HFA 90 mcg/ac tuation aerosol inhaler RxNorm: 731504 2 Puff(s) INH Q4H 05/27/2017 05/26/2017 In active promethazine 6.25 mg -codeine 10 mg/5 mL syrup RxNorm: 348471 5 Milliliter(s) PO Q4 H as needed 05/27/2017 11/04/2017 Inactive Diflucan 150 mg tablet RxNorm: 343680 1 Tablet(s) PO QW as needed 05/26/2017 05/25/2017 Inactive cyclobenzaprine 10 m g tablet RxNorm: 028913 1 Tablet(s) PO QD as needed 05/20/2017 06/18/2017 In active Lunesta 2 mg tablet RxNorm: 728092 1 Tablet(s) PO QHS 05/20/2017 05/27/2017 Inactive Zithromax Z-Juan Francisco 250 mg tablet RxNorm: 470613 Tablet(s) PO As Direc liane 05/12/2017 05/19/2017 In active cyclobenzaprine 5 mg tablet RxNorm: 984851 1 Tablet(s) PO QPM 03/28/2017 05/19/2017 Inactive Vistaril 25 mg capsule RxNorm: 557399 1 Capsule(s) PO TID as needed for anxiet y 03/28/2017 09/23/2017 In active Questran 4 gram powd er for susp in a packet RxNorm: 821173 1 Unit(s) PO QD 03/06/2017 06/18/2017 In active Cipro 500 mg tablet RxNorm: 729323 1 Tablet(s) PO BID 02/27/2017 02/26/2017 Inactive Pyridium 200 mg tablet RxNorm: 6324885 1 Tablet(s) PO TID for bladder spasms 02/27/2017 03/31/2017 In active Cipro 500 mg tablet RxNorm: 457954 1 Tablet(s) PO BID 02/27/2017 03/05/2017 Inactive Levsin 0.125 mg tablet RxNorm: 9862489 1 Tablet(s) PO QID as needed for spasm 02/25/2017 11/04/2017 In active tamsulosin 0.4 mg ca psule RxNorm: 669378 1 Capsule(s) PO QPM 02/25/2017 03/26/2017 Inactive tamsulosin 0.4 mg ca psule RxNorm: 257675 1 Capsule(s) PO QPM 02/25/2017 02/24/2017 Inactive Pyridium 100 mg tablet RxNorm: 9795101 1 Tablet(s) PO TID as needed 02/21/2017 03/31/2017 In active acetazolamide 125 mg tablet RxNorm: 768674 1 Tablet(s) PO BID 02/07/2017 09/23/2017 Inactive Questran 4 gram powd er for susp in a packet RxNorm: 339117 1 Unit(s) PO QD 02/06/2017 03/06/2017 In active cyclobenzaprine 5 mg tablet RxNorm: 338228 1 Tablet(s) PO QPM 02/05/2017 03/27/2017 Inactive BuSpar 5 mg tablet RxNorm: 121140 1 Tablet(s) PO BID 02/03/2017 03/31/2017 Inactive Diflucan 150 mg tablet RxNorm: 732134 1 Tablet(s) PO QW as needed 01/15/2017 05/26/2017 Inactive Valtrex 1 gram tablet RxNorm: 974630 1 Tablet(s) PO TID 01/13/2017 01/19/2017 Inactive Vistaril 25 mg capsule RxNorm: 708869 1 Capsule(s) PO TID as needed for anxiet y 01/13/2017 03/27/2017 In active hydrocodone 10 mg-ac etaminophen 325 mg tablet RxNorm: 046932 1 Tablet(s) PO Q4-6H as needed for pain 01/13/2017 06/17/2017 Inactive Questran 4 gram powd er for susp in a packet RxNorm: 153676 1 Unit(s) PO QD 01/13/2017 09/23/2017 In active acetazolamide 125 mg tablet RxNorm: 196503 1 Tablet(s) PO BID 01/13/2017 02/06/2017 Inactive methotrexate (PF) 20 mg/0.4 mL subcutaneous auto-injector RxNorm: 4701867 Milliliter(s) SQ QW 12/26/2016 01/05/2017 Inactive Compazine 10 mg tablet RxNorm: 189112 1 Tablet(s) PO TID as needed for nausea 12/18/2016 11/04/2017 In active hydrocodone 10 mg-ac etaminophen 325 mg tablet RxNorm: 304045 1 Tablet(s) PO Q4-6H as needed for pain 12/17/2016 01/12/2017 Inactive Questran 4 gram powd er for susp in a packet RxNorm: 897735 1 Unit(s) PO QD 12/17/2016 01/13/2017 In active cyclobenzaprine 5 mg tablet RxNorm: 357303 1 Tablet(s) PO QPM 12/17/2016 02/05/2017 Inactive Questran Light 4 gra m powder for susp in a packet RxNorm: 7884492 1 PO QD 11/29/2016 06/17/2017 In active Zofran ODT 4 mg disi ntegrating tablet RxNorm: 060490 1 Tablet(s) PO Q4H as needed for nausea 11/29/2016 12/17/2016 Inactive methotrexate sodium 2.5 mg tablet RxNorm: 247946 4 Tablet(s) PO week 1 then 5 tablets po week 2 then 6 tablets weekly 11/27/2016 12/25/2016 Inactive warfarin 7.5 mg tablet RxNorm: 733230 1 Tablet(s) PO three times weekly 11/14/2016 03/31/2017 In active warfarin 7.5 mg tablet RxNorm: 540614 1 Tablet(s) PO three times weekly 11/13/2016 11/13/2016 In active Diflucan 150 mg tablet RxNorm: 756937 1 Tablet(s) PO QW as needed 11/05/2016 01/14/2017 Inactive Vistaril 25 mg capsule RxNorm: 020206 1 Capsule(s) PO TID as needed for anxiet y 11/04/2016 11/03/2016 In active Coumadin 5 mg tablet RxNorm: 889847 1 Tablet(s) PO Friday through Friday11/04/2016 06/18/2017 In active acetazolamide 125 mg tablet RxNorm: 988949 1 Tablet(s) PO BID 11/04/2016 01/13/2017 Inactive sumatriptan 100 mg t ablet RxNorm: 617416 1 Tablet(s) PO at hea dache onset. May repeat in 2 hours if headache remains 11/04/2016 11/04/2017 Inactive Vistaril 25 mg capsule RxNorm: 814198 1 Capsule(s) PO TID as needed for anxiet y 11/04/2016 01/12/2017 In active hydrocodone 10 mg-ac etaminophen 325 mg tablet RxNorm: 796456 1 Tablet(s) PO Q4-6H as needed for pain 11/04/2016 12/16/2016 Inactive Coumadin 5 mg tablet RxNorm: 689372 TAKE ONE TABLET BY MOUTH ON SUN., MON., WED., AND FRI., AND TAKE ONE AND ONE-HALF TABLETS TUE., TH., AND 10/16/2016 10/25/2016 In active Coumadin 5 mg tablet RxNorm: 858063 1 Tablet(s) PO Friday through Friday10/15/2016 11/03/2016 In active hydrocodone 10 mg-ac etaminophen 325 mg tablet RxNorm: 544626 1 Tablet(s) PO Q4-6H as needed for pain 10/14/2016 11/03/2016 Inactive hydrocodone 10 mg-ac etaminophen 325 mg tablet RxNorm: 020048 1 Tablet(s) PO Q4-6H as needed for pain 09/20/2016 10/13/2016 Inactive warfarin 7.5 mg tablet RxNorm: 677460 1 Tablet(s) PO three times weekly 09/20/2016 11/12/2016 In active Diflucan 150 mg tablet RxNorm: 708630 1 Tablet(s) PO QW as needed 08/20/2016 11/04/2016 Inactive acetazolamide 125 mg tablet RxNorm: 121129 1 Tablet(s) PO BID 08/20/2016 11/04/2016 Inactive Diflucan 150 mg tablet RxNorm: 368174 1 Tablet(s) PO QW as needed 08/20/2016 08/19/2016 Inactive Vistaril 25 mg capsule RxNorm: 458725 Capsule(s) TAKE ONE CAPSULE BY MOUTH THR EE TIMES DAILY NEEDED FOR ANXIETY 08/19/2016 11/04/2016 Inactive hydrocodone 10 mg-ac etaminophen 325 mg tablet RxNorm: 972013 1 Tablet(s) PO Q4-6H as needed for pain 08/05/2016 09/19/2016 Inactive Diflucan 150 mg tablet RxNorm: 048910 1 Tablet(s) PO QW as needed 07/19/2016 08/19/2016 Inactive tizanidine 4 mg tablet RxNorm: 963083 1-2 Tablet(s) PO QHS as needed for muscl e spasm and sleep 06/03/2016 06/10/2016 Inactive Questran Light 4 gra m powder for susp in a packet RxNorm: 6723189 1 PO QD 05/14/2016 08/11/2016 In active Macrobid 100 mg capsule RxNorm: 082438 1 Capsule(s) PO BID 04/23/2016 05/02/2016 Inactive mupirocin 2 % topica l ointment RxNorm: 376298 Apply topically to af fected area 2-3 times daily 04/17/2016 07/07/2016 Inactive Vistaril 25 mg capsule RxNorm: 841896 TAKE ONE CAPSULE BY MOUTH THREE TIMES DA LAURIE NEEDED FOR ANXIETY 04/17/2016 11/04/2016 Inactive Diflucan 150 mg tablet RxNorm: 994810 1 Tablet(s) PO QW as needed 04/16/2016 07/18/2016 Inactive cyclobenzaprine 5 mg tablet RxNorm: 482586 TAKE ONE TABLET BY MO [facility] ONCE DAILY IN THE EVENING 03/25/2016 12/17/2016 Inactive Pyridium 100 mg tablet RxNorm: 3569662 1 Tablet(s) PO TID as needed 03/20/2016 03/19/2016 In active Diflucan 150 mg tablet RxNorm: 274190 1 Tablet(s) PO QW as needed 03/20/2016 04/15/2016 Inactive Pyridium 100 mg tablet RxNorm: 9402048 1 Tablet(s) PO TID as needed 03/20/2016 08/26/2016 In active Diflucan 150 mg tablet RxNorm: 747666 1 Tablet(s) PO QW as needed 03/19/2016 03/19/2016 Inactive Coumadin 7.5 mg tablet RxNorm: 224707 1 Tablet(s) PO QD 03/14/2016 05/12/2016 Inactive acetazolamide 125 mg tablet RxNorm: 701655 1 Tablet(s) PO BID 02/28/2016 08/20/2016 Inactive Coumadin 5 mg tablet RxNorm: 194578 1 TABLET(S) PO QD THREE TIMES A WEEK AND 1 1/2 TAB (7.5MG) FOUR TIMES A WEEK 02/28/2016 03/13/2016 Inactive Questran Light 4 gra m powder for susp in a packet RxNorm: 7505162 1 PO QD 02/13/2016 05/12/2016 In active Diflucan 150 mg tablet RxNorm: 975652 1 Tablet(s) PO QW as needed 01/19/2016 03/11/2016 Inactive Diflucan 150 mg tablet RxNorm: 263510 1 Tablet(s) PO QW as needed 01/18/2016 01/18/2016 Inactive promethazine 25 mg t ablet RxNorm: 963502 1 Tablet(s) PO Q4H as needed for nausea 12/05/2015 12/17/2016 In active Imitrex 100 mg tablet RxNorm: 024130 1 Tablet(s) PO at headache onset and may repeat in 2 hours if needed 12/05/2015 03/31/2017 Inactive Diflucan 150 mg tablet RxNorm: 768085 1 Tablet(s) PO QW as needed 11/24/2015 01/17/2016 Inactive Diflucan 150 mg tablet RxNorm: 195641 1 Tablet(s) PO QW as needed 11/21/2015 11/23/2015 Inactive Coumadin 5 mg tablet RxNorm: 130462 1 Tablet(s) PO QD three times a week and 1 1/2 tab (7.5mg) four times a week 11/13/2015 02/01/2016 Inactive Questran Light 4 gra m powder for susp in a packet RxNorm: 533016 1 PO QD 11/13/2015 02/10/2016 In active acetazolamide 125 mg tablet RxNorm: 142972 1 Tablet(s) PO BID 11/13/2015 02/10/2016 Inactive amoxicillin 875 mg t ablet RxNorm: 459347 1 Tablet(s) PO BID 11/09/2015 11/18/2015 Inactive Coumadin 7.5 mg tablet RxNorm: 288897 1 Tablet(s) PO on and 10/26/2015 10/25/2015 In active Coumadin 7.5 mg tablet RxNorm: 357581 1 Tablet(s) PO on and 10/26/2015 11/12/2015 In active Coumadin 5 mg tablet RxNorm: 175793 1 Tablet(s) PO Friday, Friday, Friday and Friday. 1.5 tablets Friday, and Friday. 10/26/2015 10/25/2015 Inactive Coumadin 5 mg tablet RxNorm: 286881 1 Tablet(s) PO Friday, Friday, Friday , and Friday. Take 1 1/2 on Friday, and Friday10/26/2015 11/12/2015 Inactive Coumadin 7.5 mg tablet RxNorm: 058552 1 Tablet(s) PO on and 10/26/2015 10/26/2015 In active Coumadin 5 mg tablet RxNorm: 165019 1 Tablet(s) PO Friday, Friday, Friday and Friday. 1.5 tablets Friday, and Friday. 10/26/2015 02/14/2016 Inactive Vistaril 25 mg capsule RxNorm: 211980 1 Capsule(s) PO TID as needed for anxiet y 10/10/2015 04/06/2016 In active cyclobenzaprine 5 mg tablet RxNorm: 299644 1 Tablet(s) PO QPM 10/10/2015 03/24/2016 Inactive Vistaril 25 mg capsule RxNorm: 212493 1 Capsule(s) PO TID as needed for anxiet y 10/10/2015 10/09/2015 In active cyclobenzaprine 5 mg tablet RxNorm: 059554 1 Tablet(s) PO QPM 10/10/2015 10/09/2015 Inactive Coumadin 5 mg tablet RxNorm: 256105 1 Tablet(s) PO Friday, Friday, Friday and Friday. 1.5 tablets Friday, and Friday. 10/02/2015 10/01/2015 Inactive Coumadin 5 mg tablet RxNorm: 970359 1 Tablet(s) PO Friday, Friday, Friday and Friday. 1.5 tablets Friday, and Friday. 10/02/2015 10/25/2015 Inactive amoxicillin 500 mg t ablet RxNorm: 666871 1 Tablet(s) PO TID 10/02/2015 10/11/2015 Inactive hydrocodone 10 mg-ac etaminophen 325 mg tablet RxNorm: 754788 1 Tablet(s) PO Q4-6H as needed for pain 10/02/2015 08/04/2016 Inactive Diflucan 150 mg tablet RxNorm: 970869 1 Tablet(s) PO QW as needed 10/02/2015 10/01/2015 Inactive amoxicillin 500 mg t ablet RxNorm: 119966 1 Tablet(s) PO TID 10/02/2015 10/01/2015 Inactive Diflucan 150 mg tablet RxNorm: 908460 1 Tablet(s) PO QW as needed 10/02/2015 10/09/2015 Inactive Coumadin 5 mg tablet RxNorm: 914829 1 Tablet(s) PO Mon.,Wed.,Fri., Sat. and Sun. 09/14/2015 10/01/2015 Inactive acetazolamide 125 mg tablet RxNorm: 223417 1 Tablet(s) PO BID 09/14/2015 11/12/2015 Inactive hydrocodone 10 mg-ac etaminophen 325 mg tablet RxNorm: 118256 1 Tablet(s) PO Q4-6H as needed for pain 09/01/2015 10/01/2015 Inactive Vistaril 25 mg capsule RxNorm: 101691 1 Capsule(s) PO TID as needed for anxiet y 08/24/2015 09/22/2015 In active baclofen 10 mg tablet RxNorm: 596277 1/2 Tablet(s) PO QAM and 1 tablet at bed time 07/27/2015 10/09/2015 Inactive Vistaril 25 mg capsule RxNorm: 223466 1 Capsule(s) PO BID 07/24/2015 08/22/2015 Inactive Savella 12.5 mg (5)- 25 mg(8)-50mg(42) tablets in a dose pack RxNorm: 832576 Tablet(s) PO as directed 07/10/2015 07/26/2015 Inactive hydrocodone 10 mg-ac etaminophen 325 mg tablet RxNorm: 728004 1 Tablet(s) PO Q6H as needed for pain 06/29/2015 08/10/2015 Inactive Coumadin 7.5 mg tablet RxNorm: 913950 1 Tablet(s) PO on and 06/21/2015 10/25/2015 In active Vistaril 25 mg capsule RxNorm: 944781 1 Capsule(s) PO BID 06/20/2015 07/24/2015 Inactive Cymbalta 30 mg capsu le,delayed release RxNorm: 427552 1 Capsule(s) PO QD 06/08/2015 07/09/2015 In active Coumadin 5 mg tablet RxNorm: 442567 1 Tablet(s) PO Mon.,Wed.,Fri., Sat. and Sun. 06/08/2015 07/07/2015 Inactive Coumadin 5 mg tablet RxNorm: 681331 1 Tablet(s) PO Mon.,Wed.,Fri., Sat. and Sun. 05/24/2015 06/07/2015 Inactive Coumadin 7.5 mg tablet RxNorm: 647510 1 Tablet(s) PO on and 05/24/2015 06/20/2015 In active Coumadin 7.5 mg tablet RxNorm: 270791 1 Tablet(s) PO on Friday No Start Date Active Vitamin B12 1000mcg Tablet RxNorm: 1/2 Tablet(s) PO QD No Start Date Active Bystolic 10 mg tablet RxNorm: 836456 3 Tablet(s) PO QAM No Start Date Active Vitamin D3 5,000 uni t tablet RxNorm: 857399 1 Tablet(s) PO QD No Start Date Active Bystolic 5 mg tablet RxNorm: 275168 1 Tablet(s) PO NOON No Start Date Active sumatriptan 100 mg t ablet RxNorm: 698348 1 Tablet(s) PO at hea dache onset. May repeat in 2 hours if headache remains No Start Date 11/03/2016 Inactive warfarin 7.5 mg tablet RxNorm: 507508 1 Tablet(s) PO three times weekly No Start Date 09/19/2016 Inactive ondansetron HCl 4 mg tablet RxNorm: 293677 1 Tablet(s) PO Q4H as needed for nausea No Start Date 02/23/2018 Inactive Imitrex 100 mg tablet RxNorm: 364183 1 Tablet(s) PO at headache onset and may repeat in 2 hours if needed No Start Date 12/04/2015 Inactive Vitamin B12 1000mcg Tablet RxNorm: 1/2 Tablet(s) PO on , hur, Sat and Sun and 1 tab all other days No Start Date 04/01/2018 Inactive baclofen 10 mg tablet RxNorm: 192706 1/2 Tablet(s) PO QAM and 1 tablet at bed time No Start Date 07/26/2015 Inactive tizanidine 4 mg tablet RxNorm: 180873 1-2 Tablet(s) PO QHS as needed for muscl e spasm and sleep No Start Date 06/02/2016 Inactive Flexeril 5 mg tablet RxNorm: 702079 1 Tablet(s) PO QD No Start Date 10/09/2015 Inactive methotrexate (PF) 20 mg/0.4 mL subcutaneous auto-injector RxNorm: 7185237 SQ QW No Start Date 12/25/2016 Inactive Bystolic 5 mg tablet RxNorm: 413476 1 Tablet(s) PO as needed No Start Date 03/15/2018 Inactive Questran Light 4 gra m powder for susp in a packet RxNorm: 552343 1 PO QD No Start Date 11/12/2015 Inactive Bystolic 10 mg tablet RxNorm: 037089 1 Tablet(s) PO QAM No Start Date 11/04/2017 Inactive warfarin 5 mg tablet RxNorm: 370750 1 Tablet(s) PO Fri Sun No Start Date 06/17/2017 Inactive hydrocodone 10 mg-ac etaminophen 325 mg tablet RxNorm: 079083 1 Tablet(s) PO 4-6hou rs as needed for pain No Start Date 08/31/2015 Inactive cyclobenzaprine 5 mg tablet RxNorm: 831531 1 Tablet(s) PO QPM No Start Date 12/16/2016 Inactive Lovenox 100 mg/mL carmona bcutaneous syringe RxNorm: 204978 1 Milliliter(s) SQ QD No Start Date 06/07/2015 Inactive Levsin 0.125 mg tablet RxNorm: 0863989 1 Tablet(s) PO QID as needed for spasm No Start Date 02/24/2017 Inactive Savella 12.5 mg (5)- 25 mg(8)-50mg(42) tablets in a dose pack RxNorm: 520056 Tablet(s) PO as directed No Start Date 07/09/2015 Inactive Coumadin 10 mg tablet RxNorm: 926735 1 Tablet(s) PO QD No Start Date 2015 Inactive tramadol 50 mg tablet RxNorm: 087876 1 Tablet(s) PO TID as needed for pain No Start Date 03/31/2017 Inactive BuSpar 5 mg tablet RxNorm: 823562 1 Tablet(s) PO BID No Start Date 02/02/2017 Inactive Vistaril 25 mg capsule RxNorm: 959621 1 Capsule(s) PO BID No Start Date 06/19/2015 Inactive Tessalon Perles 100 mg capsule RxNorm: 382735 1 Capsule(s) PO TID a s needed for cough No Start Date 01/19/2019 Inactive promethazine 12.5 mg tablet RxNorm: 806938 1 Tablet(s) PO Q6H as needed No Start Date 04/22/2018 Inactive Coumadin 7.5 mg tablet RxNorm: 457913 1 Tablet(s) PO Fri and Friday No Start Date 03/13/2016 Inactive Imitrex 50 mg tablet RxNorm: 613363 1 Tablet(s) PO at headache. repeat in 2 hours if no relief. no more than 2 tabs per day No Start Date 12/25/2017 Inactive acetazolamide 125 mg tablet RxNorm: 092462 1 Tablet(s) PO BID No Start Date 09/13/2015 Inactive methotrexate (PF) 12 .5 mg/0.4 mL subcutaneous auto-injector RxNorm: 5968860 1 Milliliter(s) SQ QW No Start Date 03/31/2017 Inactive Bystolic 10 mg tablet RxNorm: 962743 1 Tablet(s) PO QAM No Start Date 03/25/2018 Inactive Zithromax Z-Juan Francisco 250 mg tablet RxNorm: 288941 Tablet(s) PO As Direc liane No Start Date 05/11/2017 Inactive Bystolic 20 mg tablet RxNorm: 685547 1 Tablet(s) PO QD No Start Date 03/15/2018 Inactive Questran 4 gram powd er for susp in a packet RxNorm: 967049 1 Unit(s) PO QD No Start Date 12/16/2016 Inactive Vitamin D3 1,000 uni t tablet RxNorm: 190831 1 Tablet(s) PO QD No Start Date 04/01/2018 Inactive Coumadin 5 mg tablet RxNorm: 610114 1 Tablet(s) PO Friday through Friday No Start Date 03/13/2016 Inactive warfarin 5 mg tablet RxNorm: 068785 1 Tablet(s) PO four days per week No Start Date 04/01/2018 Inactive ProAir HFA 90 mcg/ac tuation aerosol inhaler RxNorm: 640091 2 Puff(s) INH Q4H as needed No Start Date 01/19/2019 Inactive Bystolic 5 mg tablet RxNorm: 334321 1 Tablet(s) PO QHS No Start Date 03/25/2018 Inactive Compazine 10 mg tablet RxNorm: 480858 1 Tablet(s) PO TID as needed for nausea No Start Date 12/17/2016 Inactive Pyridium 200 mg tablet RxNorm: 2812834 1 Tablet(s) PO TID for bladder spasms No Start Date 02/26/2017 Inactive hydrocodone 10 mg-ac etaminophen 325 mg tablet RxNorm: 080372 1 Tablet(s) PO as nee ded No Start Date 06/28/2015 Inactive warfarin 7.5 mg tablet RxNorm: 020586 1 Tablet(s) PO on Friday and No Start Date 04/01/2018 Inactive promethazine 25 mg t ablet RxNorm: 599475 1 Tablet(s) PO Q4H as needed for nausea No Start Date 12/04/2015 Inactive Lovenox 30 mg/0.3 mL subcutaneous syringe RxNorm: 968243 1 Milliliter(s) SQ QD No Start Date [...] 01/19/2019 COUGH ICD-10: R05 ICD-9: 786.2 01/19/2019 residential (current) use of anticoagulants ICD-10: Z79.01 ICD-9: [...] and perineal pain ICD-10: R10 .2 ICD-9: [id number] 02/10/2017 Hematuria, unspecified ICD-10: R31.9 ICD-9: 599.70 [...] Code Result Date ANTI STREPTOLYSIN O TITER(ASO) 57189 ASO Titr 110 IU/mL 9 MYCOPLASMA ANTIBODY, IFA [id number] Mycoplas Ab IgG 1:64 01/20/2019 MYCOPLASMA ANTIBODY, IFA [id number] Mycoplas Ab IgM <1:10 01/20/2019 MYCOPLASMA ANTIBODY, IFA [id number] Mycoplasma Intp See Below 01/20/2019 LEGIONELLA 0868516 Legio adore Ab <1:128 01/20/2019 HEPATIC FUNCTION PANEL A 16963 Total Protein 6.3 g/dL 01/19/2019 HEPATIC FUNCTION PANEL A 78614 AST 16 U/L 01/19/2019 HEPATIC FUNCTION PANEL A 49998 ALK PHOS 52 U/L 01/19/2019 HEPATIC FUNCTION PANEL A 62318 Bili Total 0.2 mg/dL 01/19/2019 HEPATIC FUNCTION PANEL A 79173 ALT 20 U/L 01/19/2019 HEPATIC FUNCTION PANEL A 89528 ALBUMIN 4.3 g/dL 01/19/2019 HEPATIC FUNCTION PANEL A 79162 Bili Direct 0.1 mg/dL 01/19/2019 PT 0949697 PT 27.5 Seconds 01/19/2019 PT 8797043 INR 2.6 01/19/2019 COMPLETE BLOOD COUNT 4258428 WBC 11.1 10e9/L 01/19/2019 COMPLETE BLOOD COUNT 3828905 RBC 4.14 10e12/L 07/30/201 9 COMPLETE BLOOD COUNT 0897225 HEMOGLOBIN 13.9 g/dL 01/19/2019 COMPLETE BLOOD COUNT 1147321 HEMATOCRIT 40.7 % 01/19/2019 COMPLETE BLOOD COUNT 7193957 MCV 98.3 fL 01/19/2019 COMPLETE BLOOD COUNT 0636872 MCH 33.6 pg 01/19/2019 COMPLETE BLOOD COUNT 3915158 MCHC 34.2 g/dL 01/19/2019 COMPLETE BLOOD COUNT 9263429 PLATELET COUNT 334 10e9/L 01/19/2019 COMPLETE BLOOD COUNT 8899432 Mean Plt Volume 8.9 fL 01/19/2019 COMPLETE BLOOD COUNT 4816526 Neut Auto 60.2 % 01/19/2019 COMPLETE BLOOD COUNT 9707968 Lymph Auto 32.5 % 01/19/2019 COMPLETE BLOOD COUNT 5403845 Harris Auto 6.1 % 01/19/2019 COMPLETE BLOOD COUNT 3421704 RDW 12.5 % 01/19/2019 COMPLETE BLOOD COUNT 2051872 Eos Auto 1.0 % 01/19/2019 COMPLETE BLOOD COUNT 1300077 Baso Auto 0.2 % 01/19/2019 COMPLETE BLOOD COUNT 9639986 Neutrophil Abs 6.68 10e9/L 01/19/2019 COMPLETE BLOOD COUNT 9062148 Lymphocyte Abs 3.61 10e9/L 01/19/2019 COMPLETE BLOOD COUNT 7974354 Monocyte Abs 0.68 10e9/L 01/19/2019 COMPLETE BLOOD COUNT 0805737 Eosinophil Abs 0.11 10e9/L 01/19/2019 COMPLETE BLOOD COUNT 8502137 RDW-SD 43.4 fL 01/19/2019 COMPLETE BLOOD COUNT 6712394 Basophil Abs 0.02 10e9/L 01/19/2019 COMPLETE BLOOD COUNT 0034368 WBC 7.4 10e9/L 12/18/2018 COMPLETE BLOOD COUNT 0619322 RBC 4.32 10e12/L 9 COMPLETE BLOOD COUNT 0081313 HEMOGLOBIN 14.2 g/dL 12/18/2018 COMPLETE BLOOD COUNT 0190596 HEMATOCRIT 42.0 % 12/18/2018 COMPLETE BLOOD COUNT 9603263 MCV 97.2 fL 12/18/2018 COMPLETE BLOOD COUNT 1869408 MCH 32.9 pg 12/18/2018 COMPLETE BLOOD COUNT 0735933 MCHC 33.8 g/dL 12/18/2018 COMPLETE BLOOD COUNT 1877271 PLATELET COUNT 273 10e9/L 12/18/2018 COMPLETE BLOOD COUNT 6546454 Mean Plt Volume 9.4 fL 12/18/2018 COMPLETE BLOOD COUNT 3234397 Neut Auto 57.7 % 12/18/2018 COMPLETE BLOOD COUNT 7180147 Lymph Auto 34.8 % 12/18/2018 COMPLETE BLOOD COUNT 2262759 Harris Auto 6.4 % 12/18/2018 COMPLETE BLOOD COUNT 8248896 RDW 12.6 % 12/18/2018 COMPLETE BLOOD COUNT 5682683 Eos Auto 0.8 % 12/18/2018 COMPLETE BLOOD COUNT 3903725 Baso Auto 0.3 % 12/18/2018 COMPLETE BLOOD COUNT 5410857 Neutrophil Abs 4.27 10e9/L 12/18/2018 COMPLETE BLOOD COUNT 1616333 Lymphocyte Abs 2.58 10e9/L 12/18/2018 COMPLETE BLOOD COUNT 7424936 Monocyte Abs 0.47 10e9/L 12/18/2018 COMPLETE BLOOD COUNT 8786146 Eosinophil Abs 0.06 10e9/L 12/18/2018 COMPLETE BLOOD COUNT 0846832 RDW-SD 43.8 fL 12/18/2018 COMPLETE BLOOD COUNT 4157448 Basophil Abs 0.02 10e9/L 12/18/2018 GFR CALC 0603291 GFR Non Afr Amr >60 mL/min 12/18/2018 GFR CALC 0577240 GFR Afr Amr >60 mL/min 12/18/2018 COMPREHENSIVE METABOLIC 27074 AST 33 U/L 12/18/2018 COMPREHENSIVE METABOLIC 64978 ALT 60 U/L 12/18/2018 COMPREHENSIVE METABOLIC 32094 BUN 9 mg/dL 12/18/2018 COMPREHENSIVE METABOLIC 29717 ALBUMIN 4.3 g/dL 12/18/2018 COMPREHENSIVE METABOLIC 41835 CHLORIDE 104 mmol/L 12/18/2018 COMPREHENSIVE METABOLIC 06429 Bili Total 0.3 mg/dL 12/18/2018 COMPREHENSIVE METABOLIC 48688 ALK PHOS 63 U/L 12/18/2018 COMPREHENSIVE METABOLIC 52412 SODIUM 139 mmol/L 12/18/2018 COMPREHENSIVE METABOLIC 12410 CREATININE 0.55 mg/dL 12/18/2018 COMPREHENSIVE METABOLIC 48026 CALCIUM 9.0 mg/dL 12/18/2018 COMPREHENSIVE METABOLIC 64909 POTASSIUM 3.9 mmol/L 12/18/2018 COMPREHENSIVE METABOLIC 53282 Total Protein 6.4 g/dL 12/18/2018 COMPREHENSIVE METABOLIC 47327 Glucose 83 mg/dL 12/18/2018 COMPREHENSIVE METABOLIC 30860 Bicarbonate 27 mmol/L 12/18/2018 COMPREHENSIVE METABOLIC 10477 AGAP 8 mmol/L 12/18/2018 ERYTHROCYTE SEDIMENTATION RATE 41325 Sed Rate 17 mm/hr 12/04/2018 MEAN GLUC 3707844 Calc M zach Gluc 108 mg/dL 12/03/2018 VITAMIN B 12 47790 VITAM IN B12 329 pg/mL 12/03/2018 COMPREHENSIVE METABOLIC 89081 AST 18 U/L 12/03/2018 COMPREHENSIVE METABOLIC 40289 ALT 21 U/L 12/03/2018 COMPREHENSIVE METABOLIC 23836 BUN 11 mg/dL 12/03/2018 COMPREHENSIVE METABOLIC 49052 ALBUMIN 4.5 g/dL 12/03/2018 COMPREHENSIVE METABOLIC 25811 CHLORIDE 106 mmol/L 12/03/2018 COMPREHENSIVE METABOLIC 80793 Bili Total 0.4 mg/dL 12/03/2018 COMPREHENSIVE METABOLIC 59503 ALK PHOS 49 U/L 12/03/2018 COMPREHENSIVE METABOLIC 81778 SODIUM 138 mmol/L 12/03/2018 COMPREHENSIVE METABOLIC 77723 CREATININE 0.61 mg/dL 12/03/2018 COMPREHENSIVE METABOLIC 46418 CALCIUM 9.2 mg/dL 12/03/2018 COMPREHENSIVE METABOLIC 58551 POTASSIUM 3.7 mmol/L 12/03/2018 COMPREHENSIVE METABOLIC 08652 Total Protein 6.8 g/dL 12/03/2018 COMPREHENSIVE METABOLIC 51739 Glucose 94 mg/dL 12/03/2018 COMPREHENSIVE METABOLIC 66119 Bicarbonate 25 mmol/L 12/03/2018 COMPREHENSIVE METABOLIC 81616 AGAP 7 mmol/L 12/03/2018 FREE T4 86728 T4 Free 0.96 ng/dL 12/03/2018 ASSAY TRIIODOTHYRONINE (T3) 02091 T3 Total 1.02 ng/mL 12/03/2018 GFR CALC 4437181 GFR Non Afr Amr >60 mL/min 12/03/2018 GFR CALC 6666212 GFR Afr Amr >60 mL/min 12/03/2018 GLYCOSYLATED HEMOGLOBIN TEST 78717 Hgb A1c 15462-5 5.4 % 12/03/2018 VITAMIN D TOTAL (25 HYDROXY) 65581 Vitamin D 25 OH 11.1 ng/mL 12/03/2018 IRON 11200 Iron 106 ug/dL 12/03/2018 THYROID STIMULATING HORMONE 95860 TSH 0.978 uIU/mL 9 COMPLETE BLOOD COUNT 5897797 WBC 9.4 10e9/L 12/03/2018 COMPLETE BLOOD COUNT 1736044 RBC 4.41 10e12/L 9 COMPLETE BLOOD COUNT 5866287 HEMOGLOBIN 14.5 g/dL 12/03/2018 COMPLETE BLOOD COUNT 8366513 HEMATOCRIT 43.0 % 12/03/2018 COMPLETE BLOOD COUNT 2173165 MCV 97.5 fL 12/03/2018 COMPLETE BLOOD COUNT 9499213 MCH 32.9 pg 12/03/2018 COMPLETE BLOOD COUNT 8834529 MCHC 33.7 g/dL 12/03/2018 COMPLETE BLOOD COUNT 4171684 PLATELET COUNT 336 10e9/L 12/03/2018 COMPLETE BLOOD COUNT 7126867 Mean Plt Volume 9.1 fL 12/03/2018 COMPLETE BLOOD COUNT 8219598 Neut Auto 56.4 % 12/03/2018 COMPLETE BLOOD COUNT 6573870 Lymph Auto 35.6 % 12/03/2018 COMPLETE BLOOD COUNT 0578141 Harris Auto 6.8 % 12/03/2018 COMPLETE BLOOD COUNT 2242787 RDW 12.6 % 12/03/2018 COMPLETE BLOOD COUNT 9017199 Eos Auto 1.0 % 12/03/2018 COMPLETE BLOOD COUNT 3900573 Baso Auto 0.2 % 12/03/2018 COMPLETE BLOOD COUNT 9008085 Neutrophil Abs 5.30 10e9/L 12/03/2018 COMPLETE BLOOD COUNT 1799029 Lymphocyte Abs 3.35 10e9/L 12/03/2018 COMPLETE BLOOD COUNT 6878948 Monocyte Abs 0.64 10e9/L 12/03/2018 COMPLETE BLOOD COUNT 3819662 Eosinophil Abs 0.09 10e9/L 12/03/2018 COMPLETE BLOOD COUNT 1710430 RDW-SD 44.3 fL 12/03/2018 COMPLETE BLOOD COUNT 7723842 Basophil Abs 0.02 10e9/L 12/03/2018 FERRITIN 44697 FERRITIN 87.8 ng/mL 12/03/2018 PT 4530409 PT 23.1 Seconds 11/30/2018 PT 7283564 INR 2.0 11/30/2018 ANTI STREPTOLYSIN O TITER(ASO) 18751 ASO Titr 117 IU/mL 9 COMPLETE BLOOD COUNT 2194303 WBC 10.7 10e9/L 11/11/2018 COMPLETE BLOOD COUNT 1173345 RBC 4.42 10e12/L 9 COMPLETE BLOOD COUNT 9128009 HEMOGLOBIN 14.5 g/dL 11/11/2018 COMPLETE BLOOD COUNT 0314546 HEMATOCRIT 43.1 % 11/11/2018 COMPLETE BLOOD COUNT 1163824 MCV 97.5 fL 11/11/2018 COMPLETE BLOOD COUNT 2702505 MCH 32.8 pg 11/11/2018 COMPLETE BLOOD COUNT 9158605 MCHC 33.6 g/dL 11/11/2018 COMPLETE BLOOD COUNT 7003547 PLATELET COUNT 324 10e9/L 11/11/2018 COMPLETE BLOOD COUNT 2275907 Mean Plt Volume 9.2 fL 11/11/2018 COMPLETE BLOOD COUNT 4924988 Neut Auto 62.3 % 11/11/2018 COMPLETE BLOOD COUNT 0865276 Lymph Auto 30.8 % 11/11/2018 COMPLETE BLOOD COUNT 2650844 Harris Auto 6.1 % 11/11/2018 COMPLETE BLOOD COUNT 2895500 RDW 12.7 % 11/11/2018 COMPLETE BLOOD COUNT 0918569 Eos Auto 0.7 % 11/11/2018 COMPLETE BLOOD COUNT 3935053 Baso Auto 0.1 % 11/11/2018 COMPLETE BLOOD COUNT 8000193 Neutrophil Abs 6.67 10e9/L 11/11/2018 COMPLETE BLOOD COUNT 2723528 Lymphocyte Abs 3.30 10e9/L 11/11/2018 COMPLETE BLOOD COUNT 3198270 Monocyte Abs 0.65 10e9/L 11/11/2018 COMPLETE BLOOD COUNT 9656536 Eosinophil Abs 0.07 10e9/L 11/11/2018 COMPLETE BLOOD COUNT 2721837 RDW-SD 44.3 fL 11/11/2018 COMPLETE BLOOD COUNT 7819650 Basophil Abs 0.01 10e9/L 11/11/2018 PT 5533231 PT 23.4 Seconds 10/27/2018 PT 8844825 INR 2.0 10/27/2018 COMPLETE BLOOD COUNT 4804660 WBC 8.1 10e9/L 09/25/2018 COMPLETE BLOOD COUNT 9263368 RBC 4.37 10e12/L 9 COMPLETE BLOOD COUNT 4180713 HEMOGLOBIN 14.5 g/dL 09/25/2018 COMPLETE BLOOD COUNT 5382229 HEMATOCRIT 42.1 % 09/25/2018 COMPLETE BLOOD COUNT 6439471 MCV 96.3 fL 09/25/2018 COMPLETE BLOOD COUNT 5005405 MCH 33.2 pg 09/25/2018 COMPLETE BLOOD COUNT 3939479 MCHC 34.4 g/dL 09/25/2018 COMPLETE BLOOD COUNT 5417112 PLATELET COUNT 313 10e9/L 09/25/2018 COMPLETE BLOOD COUNT 6755839 Mean Plt Volume 9.2 fL 09/25/2018 COMPLETE BLOOD COUNT 4153869 Neut Auto 57.4 % 09/25/2018 COMPLETE BLOOD COUNT 5013039 Lymph Auto 35.0 % 09/25/2018 COMPLETE BLOOD COUNT 3227931 Harris Auto 6.3 % 09/25/2018 COMPLETE BLOOD COUNT 9413056 RDW 12.6 % 09/25/2018 COMPLETE BLOOD COUNT 5611430 Eos Auto 1.1 % 09/25/2018 COMPLETE BLOOD COUNT 4333343 Baso Auto 0.2 % 09/25/2018 COMPLETE BLOOD COUNT 2748450 Neutrophil Abs 4.65 10e9/L 09/25/2018 COMPLETE BLOOD COUNT 3642029 Lymphocyte Abs 2.84 10e9/L 09/25/2018 COMPLETE BLOOD COUNT 2619824 Monocyte Abs 0.51 10e9/L 09/25/2018 COMPLETE BLOOD COUNT 6503710 Eosinophil Abs 0.09 10e9/L 09/25/2018 COMPLETE BLOOD COUNT 6203135 RDW-SD 43.0 fL 09/25/2018 COMPLETE BLOOD COUNT 1362707 Basophil Abs 0.02 10e9/L 09/25/2018 COMPREHENSIVE METABOLIC 15847 AST 15 U/L 09/25/2018 COMPREHENSIVE METABOLIC 08171 ALT 20 U/L 09/25/2018 COMPREHENSIVE METABOLIC 02816 BUN 9 mg/dL 09/25/2018 COMPREHENSIVE METABOLIC 88429 ALBUMIN 4.3 g/dL 09/25/2018 COMPREHENSIVE METABOLIC 66369 CHLORIDE 107 mmol/L 09/25/2018 COMPREHENSIVE METABOLIC 52301 Bili Total 0.4 mg/dL 09/25/2018 COMPREHENSIVE METABOLIC 95451 ALK PHOS 51 U/L 09/25/2018 COMPREHENSIVE METABOLIC 84325 SODIUM 139 mmol/L 09/25/2018 COMPREHENSIVE METABOLIC 66361 CREATININE 0.61 mg/dL 09/25/2018 COMPREHENSIVE METABOLIC 29713 CALCIUM 9.1 mg/dL 09/25/2018 COMPREHENSIVE METABOLIC 42921 POTASSIUM 3.7 mmol/L 09/25/2018 COMPREHENSIVE METABOLIC 82589 Total Protein 6.3 g/dL 09/25/2018 COMPREHENSIVE METABOLIC 82148 Glucose 92 mg/dL 09/25/2018 COMPREHENSIVE METABOLIC 29133 Bicarbonate 24 mmol/L 09/25/2018 COMPREHENSIVE METABOLIC 39244 AGAP 8 mmol/L 09/25/2018 PT 3916637 PT 25.0 Seconds 09/25/2018 PT 1873459 INR 2.2 09/25/2018 GFR CALC 0972606 GFR Non Afr Amr >60 mL/min 09/25/2018 GFR CALC 3721740 GFR Afr Amr >60 mL/min 09/25/2018 PT 5926256 PT 25.7 Seconds 05/12/2018 PT 7982127 INR 2.3 05/12/2018 PT 3595065 PT TNP:Improper Specimen 04/30/2018 PT [id number] INR TNP:Improper Specimen 04/30/2018 PT 7682136 PT 26.3 Seconds 02/05/2018 PT 8381354 INR 2.4 02/05/2018 ANTI STREPTOLYSIN O TITER(ASO) 60120 ASO Titr 118 IU/mL 8 VITAMIN B 12 08024 VITAM IN B12 302 pg/mL 12/02/2017 VITAMIN D TOTAL (25 HYDROXY) 64145 Vitamin D 25 OH 27.0 ng/mL 12/02/2017 PT 3974402 PT 17.3 Seconds 12/01/2017 PT 2352521 INR 1.4 12/01/2017 ANTI STREPTOLYSIN O TITER(ASO) 86548 ASO Titr 127 IU/mL 8 ANTI STREPTOLYSIN O TITER(ASO) 82382 ASO Titr 130 IU/mL 8 ANTINUCLEAR ANTIBODY SCREEN 49853 MAGALIE Ab Scr <1:80 10/02/2017 RA FACTOR 01667 RA FACTOR <20 IU/mL 10/02/2017 RA FACTOR 37960 RA Facto r Intp Negative 10/02/2017 VITAMIN D TOTAL (25 HYDROXY) 82596 Vitamin D 25 OH 18 ng/mL 8 IRON 92258 Iron 70 ug/dL 10/01/2017 VITAMIN B 12 71427 VITAM IN B12 377 pg/mL 10/01/2017 FREE T4 41105 T4 Free 1.31 ng/dL 10/01/2017 URIC ACID 29824 URIC ACID 3.9 mg/dL 10/01/2017 FERRITIN 01427 FERRITIN 68.0 ng/mL 10/01/2017 THYROID STIMULATING HORMONE 73622 TSH 1.401 uIU/mL 8 GLYCOSYLATED HEMOGLOBIN TEST 86874 Hgb A1c 71097-9 5.4 % 10/01/2017 FOLIC ACID 45122 Folate >24.0 ng/mL 10/01/2017 ASSAY TRIIODOTHYRONINE (T3) 46663 T3 Total 1.0 ng/mL 10/01/2017 ERYTHROCYTE SEDIMENTATION RATE 89360 Sed Rate 5 mm/hr 10/01/2017 MEAN GLUC 9017615 Calc M zach Gluc 108 mg/dL 10/01/2017 PT 0784239 PT 18.6 Seconds 08/07/2017 PT 5864287 INR 1.5 08/07/2017 COMPREHENSIVE METABOLIC 21029 AST 21 U/L 08/07/2017 COMPREHENSIVE METABOLIC 79612 ALT 37 U/L 08/07/2017 COMPREHENSIVE METABOLIC 96674 BUN 14 mg/dL 08/07/2017 COMPREHENSIVE METABOLIC 79857 ALBUMIN 4.5 g/dL 08/07/2017 COMPREHENSIVE METABOLIC 85262 CHLORIDE 104 mmol/L 08/07/2017 COMPREHENSIVE METABOLIC 38325 Bili Total 0.3 mg/dL 08/07/2017 COMPREHENSIVE METABOLIC 51519 ALK PHOS 55 U/L 08/07/2017 COMPREHENSIVE METABOLIC 26540 SODIUM 139 mmol/L 08/07/2017 COMPREHENSIVE METABOLIC 99135 CREATININE 0.77 mg/dL 08/07/2017 COMPREHENSIVE METABOLIC 69707 CALCIUM 9.2 mg/dL 08/07/2017 COMPREHENSIVE METABOLIC 14616 POTASSIUM 3.7 mmol/L 08/07/2017 COMPREHENSIVE METABOLIC 36562 Total Protein 6.5 g/dL 08/07/2017 COMPREHENSIVE METABOLIC 72715 Glucose 101 mg/dL 08/07/2017 COMPREHENSIVE METABOLIC 63419 Bicarbonate 25 mmol/L 08/07/2017 COMPREHENSIVE METABOLIC 97237 AGAP 10 mmol/L 08/07/2017 COMPLETE BLOOD COUNT 2298368 WBC 9.4 10e9/L 08/07/2017 COMPLETE BLOOD COUNT 2274474 RBC 4.38 10e12/L 8 COMPLETE BLOOD COUNT 4859152 HEMOGLOBIN 14.5 g/dL 08/07/2017 COMPLETE BLOOD COUNT 1482116 HEMATOCRIT 42.7 % 08/07/2017 COMPLETE BLOOD COUNT 3137729 MCV 97.5 fL 08/07/2017 COMPLETE BLOOD COUNT 1977200 MCH 33.1 pg 08/07/2017 COMPLETE BLOOD COUNT 9189399 MCHC 34.0 g/dL 08/07/2017 COMPLETE BLOOD COUNT 1101865 PLATELET COUNT 313 10e9/L 08/07/2017 COMPLETE BLOOD COUNT 5802631 Mean Plt Volume 8.6 fL 08/07/2017 COMPLETE BLOOD COUNT 1734121 Neut Auto 51.6 % 08/07/2017 COMPLETE BLOOD COUNT 7807902 Lymph Auto 40.0 % 08/07/2017 COMPLETE BLOOD COUNT 0258927 Harris Auto 6.8 % 08/07/2017 COMPLETE BLOOD COUNT 1109725 RDW 12.9 % 08/07/2017 COMPLETE BLOOD COUNT 4480458 Eos Auto 1.4 % 08/07/2017 COMPLETE BLOOD COUNT 3264285 Baso Auto 0.2 % 08/07/2017 COMPLETE BLOOD COUNT 3080671 Neutrophil Abs 4.85 10e9/L 08/07/2017 COMPLETE BLOOD COUNT 8283575 Lymphocyte Abs 3.76 10e9/L 08/07/2017 COMPLETE BLOOD COUNT 8275041 Monocyte Abs 0.64 10e9/L 08/07/2017 COMPLETE BLOOD COUNT 0414727 Eosinophil Abs 0.13 10e9/L 08/07/2017 COMPLETE BLOOD COUNT 5985280 RDW-SD 45.1 fL 08/07/2017 COMPLETE BLOOD COUNT 5578407 Basophil Abs 0.02 10e9/L 08/07/2017 GFR CALC 4327828 GFR Non Afr Amr >60 mL/min 08/07/2017 GFR CALC 2797029 GFR Afr Amr >60 mL/min 08/07/2017 COMPLETE BLOOD COUNT 1107019 WBC 9.2 10e9/L 07/15/2017 COMPLETE BLOOD COUNT 1814735 RBC 4.70 10e12/L 8 COMPLETE BLOOD COUNT 1777306 HEMOGLOBIN 15.4 g/dL 07/15/2017 COMPLETE BLOOD COUNT 2904512 HEMATOCRIT 46.2 % 07/15/2017 COMPLETE BLOOD COUNT 3689916 MCV 98.3 fL 07/15/2017 COMPLETE BLOOD COUNT 1971912 MCH 32.8 pg 07/15/2017 COMPLETE BLOOD COUNT 0551200 MCHC 33.3 g/dL 07/15/2017 COMPLETE BLOOD COUNT 0389385 PLATELET COUNT 348 10e9/L 07/15/2017 COMPLETE BLOOD COUNT 8745026 Mean Plt Volume 8.9 fL 07/15/2017 COMPLETE BLOOD COUNT 1299253 Neut Auto 60.6 % 07/15/2017 COMPLETE BLOOD COUNT 7512886 Lymph Auto 30.9 % 07/15/2017 COMPLETE BLOOD COUNT 4967217 Harris Auto 7.1 % 07/15/2017 COMPLETE BLOOD COUNT 2537014 RDW 13.1 % 07/15/2017 COMPLETE BLOOD COUNT 6078599 Eos Auto 1.2 % 07/15/2017 COMPLETE BLOOD COUNT 6729693 Baso Auto 0.2 % 07/15/2017 COMPLETE BLOOD COUNT 8979648 Neutrophil Abs 5.58 10e9/L 07/15/2017 COMPLETE BLOOD COUNT 3660969 Lymphocyte Abs 2.84 10e9/L 07/15/2017 COMPLETE BLOOD COUNT 0142196 Monocyte Abs 0.65 10e9/L 07/15/2017 COMPLETE BLOOD COUNT 6350665 Eosinophil Abs 0.11 10e9/L 07/15/2017 COMPLETE BLOOD COUNT 8430028 RDW-SD 46.1 fL 07/15/2017 COMPLETE BLOOD COUNT 7115864 Basophil Abs 0.02 10e9/L 07/15/2017 GFR CALC 8173867 GFR Non Afr Amr >60 mL/min 07/15/2017 GFR CALC 4566774 GFR Afr Amr >60 mL/min 07/15/2017 COMPREHENSIVE METABOLIC 47935 AST 16 U/L 07/15/2017 COMPREHENSIVE METABOLIC 69749 ALT 20 U/L 07/15/2017 COMPREHENSIVE METABOLIC 49406 BUN 13 mg/dL 07/15/2017 COMPREHENSIVE METABOLIC 90930 ALBUMIN 4.6 g/dL 07/15/2017 COMPREHENSIVE METABOLIC 37530 CHLORIDE 106 mmol/L 07/15/2017 COMPREHENSIVE METABOLIC 30406 Bili Total 0.3 mg/dL 07/15/2017 COMPREHENSIVE METABOLIC 03272 ALK PHOS 50 U/L 07/15/2017 COMPREHENSIVE METABOLIC 04314 SODIUM 137 mmol/L 07/15/2017 COMPREHENSIVE METABOLIC 62571 CREATININE 0.62 mg/dL 07/15/2017 COMPREHENSIVE METABOLIC 58801 CALCIUM 9.2 mg/dL 07/15/2017 COMPREHENSIVE METABOLIC 28878 POTASSIUM 3.8 mmol/L 07/15/2017 COMPREHENSIVE METABOLIC 17480 Total Protein 6.7 g/dL 07/15/2017 COMPREHENSIVE METABOLIC 88748 Glucose 83 mg/dL 07/15/2017 COMPREHENSIVE METABOLIC 26653 Bicarbonate 30 mmol/L 07/15/2017 COMPREHENSIVE METABOLIC 32539 AGAP 1 mmol/L 07/15/2017 THYROID STIMULATING HORMONE 60889 TSH 2.111 uIU/mL 201 7 COMPREHENSIVE METABOLIC 82668 AST 33 U/L 08/27/2016 COMPREHENSIVE METABOLIC 18096 ALT 55 U/L 08/27/2016 COMPREHENSIVE METABOLIC 44149 BUN 11 mg/dL 08/27/2016 COMPREHENSIVE METABOLIC 53189 ALBUMIN 4.6 g/dL 08/27/2016 COMPREHENSIVE METABOLIC 85771 CHLORIDE 103 mmol/L 08/27/2016 COMPREHENSIVE METABOLIC 10436 Bili Total 0.3 mg/dL 08/27/2016 COMPREHENSIVE METABOLIC 84179 ALK PHOS 60 U/L 08/27/2016 COMPREHENSIVE METABOLIC 55026 SODIUM 140 mmol/L 08/27/2016 COMPREHENSIVE METABOLIC 72395 CREATININE 0.69 mg/dL 08/27/2016 COMPREHENSIVE METABOLIC 55447 CALCIUM 9.3 mg/dL 08/27/2016 COMPREHENSIVE METABOLIC 70014 POTASSIUM 3.7 mmol/L 08/27/2016 COMPREHENSIVE METABOLIC 11178 Total Protein 6.8 g/dL 08/27/2016 COMPREHENSIVE METABOLIC 35262 Glucose 79 mg/dL 08/27/2016 COMPREHENSIVE METABOLIC 67146 Bicarbonate 25 mmol/L 08/27/2016 COMPREHENSIVE METABOLIC 79914 AGAP 12 mmol/L 08/27/2016 COMPLETE BLOOD COUNT 4444304 WBC 9.4 10e9/L 08/27/2016 COMPLETE BLOOD COUNT 6787666 RBC 4.35 10e12/L 7 COMPLETE BLOOD COUNT 5374713 HEMOGLOBIN 14.2 g/dL 08/27/2016 COMPLETE BLOOD COUNT 8659196 HEMATOCRIT 41.5 % 08/27/2016 COMPLETE BLOOD COUNT 8045986 MCV 95.4 fL 08/27/2016 COMPLETE BLOOD COUNT 6965656 MCH 32.6 pg 08/27/2016 COMPLETE BLOOD COUNT 0103441 MCHC 34.2 g/dL 08/27/2016 COMPLETE BLOOD COUNT 4926917 PLATELET COUNT 289 10e9/L 08/27/2016 COMPLETE BLOOD COUNT 8684712 Mean Plt Volume 9.8 fL 08/27/2016 COMPLETE BLOOD COUNT 4384282 Neut Auto 47.7 % 08/27/2016 COMPLETE BLOOD COUNT 7551794 Lymph Auto 44.2 % 08/27/2016 COMPLETE BLOOD COUNT 7758471 Harris Auto 6.6 % 08/27/2016 COMPLETE BLOOD COUNT 3691910 Eos Auto 1.4 % 08/27/2016 COMPLETE BLOOD COUNT 0453729 RDW 12.9 % 08/27/2016 COMPLETE BLOOD COUNT 6677038 Baso Auto 0.1 % 08/27/2016 COMPLETE BLOOD COUNT 2651742 Neutrophil Abs 4.48 10e9/L 08/27/2016 COMPLETE BLOOD COUNT 4639777 Lymphocyte Abs 4.15 10e9/L 08/27/2016 COMPLETE BLOOD COUNT 6919812 Monocyte Abs 0.62 10e9/L 08/27/2016 COMPLETE BLOOD COUNT 4279816 Eosinophil Abs 0.13 10e9/L 08/27/2016 COMPLETE BLOOD COUNT 4356718 RDW-SD 43.9 fL 08/27/2016 COMPLETE BLOOD COUNT 5071002 Basophil Abs 0.01 10e9/L 08/27/2016 PT 2502036 PT 15.0 Seconds 08/27/2016 PT 8558929 INR 1.2 08/27/2016 GFR CALC 7304965 GFR Afr Amr >60 mL/min 08/27/2016 GFR CALC 9086437 GFR Non Afr Amr >60 mL/min 08/27/2016 GFR CALC 5137185 GFR Non Afr Amr >60 mL/min 05/24/2016 GFR CALC 0921069 GFR Afr Amr >60 mL/min 05/24/2016 COMPREHENSIVE METABOLIC 51686 AST 19 U/L 05/24/2016 COMPREHENSIVE METABOLIC 06760 ALT 23 U/L 05/24/2016 COMPREHENSIVE METABOLIC 04996 BUN 12 mg/dL 05/24/2016 COMPREHENSIVE METABOLIC 51181 ALBUMIN 4.1 g/dL 05/24/2016 COMPREHENSIVE METABOLIC 99223 CHLORIDE 105 mmol/L 05/24/2016 COMPREHENSIVE METABOLIC 06311 Bili Total 0.4 mg/dL 05/24/2016 COMPREHENSIVE METABOLIC 46263 ALK PHOS 52 U/L 05/24/2016 COMPREHENSIVE METABOLIC 19287 SODIUM 136 mmol/L 05/24/2016 COMPREHENSIVE METABOLIC 58313 CREATININE 0.61 mg/dL 05/24/2016 COMPREHENSIVE METABOLIC 73635 CALCIUM 8.8 mg/dL 05/24/2016 COMPREHENSIVE METABOLIC 29450 POTASSIUM 3.8 mmol/L 05/24/2016 COMPREHENSIVE METABOLIC 67131 Total Protein 6.2 g/dL 05/24/2016 COMPREHENSIVE METABOLIC 85463 Glucose 95 mg/dL 05/24/2016 COMPREHENSIVE METABOLIC 69422 Bicarbonate 19 mmol/L 05/24/2016 COMPREHENSIVE METABOLIC 63793 AGAP 12 mmol/L 05/24/2016 PT 9426537 PT 25.7 Seconds 05/24/2016 PT 6765139 INR 2.4 05/24/2016 PT 8038916 PT 22.2 Seconds 04/11/2016 PT 4695877 INR 2.0 04/11/2016 PT 8440090 PT 16.5 Seconds 03/13/2016 PT 6175046 INR 1.4 03/13/2016 THYROID STIMULATING HORMONE 33657 TSH 1.151 uIU/mL 6 COMPLETE BLOOD COUNT 5245571 WBC 10.0 10e9/L 03/12/2016 COMPLETE BLOOD COUNT 8545663 RBC 4.08 10e12/L 6 COMPLETE BLOOD COUNT 6062506 HEMOGLOBIN 13.5 g/dL 03/12/2016 COMPLETE BLOOD COUNT 9948834 HEMATOCRIT 38.8 % 03/12/2016 COMPLETE BLOOD COUNT 7589007 MCV 95.1 fL 03/12/2016 COMPLETE BLOOD COUNT 7161246 MCH 33.1 pg 03/12/2016 COMPLETE BLOOD COUNT 6674015 MCHC 34.8 g/dL 03/12/2016 COMPLETE BLOOD COUNT 6202691 PLATELET COUNT 282 10e9/L 03/12/2016 COMPLETE BLOOD COUNT 6731841 Mean Plt Volume 9.6 fL 03/12/2016 COMPLETE BLOOD COUNT 0308607 Neut Auto 53.5 % 03/12/2016 COMPLETE BLOOD COUNT 1066163 Lymph Auto 39.0 % 03/12/2016 COMPLETE BLOOD COUNT 9169487 Harris Auto 5.9 % 03/12/2016 COMPLETE BLOOD COUNT 8345710 Eos Auto 1.4 % 03/12/2016 COMPLETE BLOOD COUNT 9494111 RDW 12.6 % 03/12/2016 COMPLETE BLOOD COUNT 3334147 Baso Auto 0.2 % 03/12/2016 COMPLETE BLOOD COUNT 4324783 Neutrophil Abs 5.35 10e9/L 03/12/2016 COMPLETE BLOOD COUNT 9244024 Lymphocyte Abs 3.90 10e9/L 03/12/2016 COMPLETE BLOOD COUNT 0963875 Monocyte Abs 0.59 10e9/L 03/12/2016 COMPLETE BLOOD COUNT 1954109 Eosinophil Abs 0.14 10e9/L 03/12/2016 COMPLETE BLOOD COUNT 8627337 RDW-SD 42.7 fL 03/12/2016 COMPLETE BLOOD COUNT 4395080 Basophil Abs 0.02 10e9/L 03/12/2016 COMPREHENSIVE METABOLIC 67186 AST 13 U/L 03/12/2016 COMPREHENSIVE METABOLIC 67743 ALT 11 U/L 03/12/2016 COMPREHENSIVE METABOLIC 33996 BUN 11 mg/dL 03/12/2016 COMPREHENSIVE METABOLIC 05068 ALBUMIN 4.1 g/dL 03/12/2016 COMPREHENSIVE METABOLIC 64300 CHLORIDE 107 mmol/L 03/12/2016 COMPREHENSIVE METABOLIC 71742 Bili Total 0.3 mg/dL 03/12/2016 COMPREHENSIVE METABOLIC 50758 ALK PHOS 41 U/L 03/12/2016 COMPREHENSIVE METABOLIC 28781 SODIUM 137 mmol/L 03/12/2016 COMPREHENSIVE METABOLIC 66689 CREATININE 0.62 mg/dL 03/12/2016 COMPREHENSIVE METABOLIC 17045 CALCIUM 9.0 mg/dL 03/12/2016 COMPREHENSIVE METABOLIC 26438 POTASSIUM 3.8 mmol/L 03/12/2016 COMPREHENSIVE METABOLIC 20557 Total Protein 6.1 g/dL 03/12/2016 COMPREHENSIVE METABOLIC 62826 Glucose 95 mg/dL 03/12/2016 COMPREHENSIVE METABOLIC 62029 Bicarbonate 23 mmol/L 03/12/2016 COMPREHENSIVE METABOLIC 36812 AGAP 7 mmol/L 03/12/2016 GFR CALC 3911661 GFR Non Afr Amr >60 mL/min 03/12/2016 GFR CALC 0823779 GFR Afr Amr >60 mL/min 03/12/2016 PT 4285158 PT 14.4 Seconds 02/12/2016 PT 1267180 INR 1.2 02/12/2016 PT 2452686 PT 26.1 Seconds 02/01/2016 PT 3614488 INR 2.4 02/01/2016 EB VIRUS VCA G/M + EBNA + [place] [address]|8 6665 x 2|38197 EBV VCA Ab IgG 3.70 11/13/2015 EB VIRUS VCA G/M + [place] + [place] [address]|8 6665 x 2|80911 EBV VCA Ab IgM 0.47 11/13/2015 [place] VCA G/M + [place] + [place] [address]|8 6665 x 2|16598 EBV Nuclear Ab 2.24 11/13/2015 EB VIRUS VCA G/M + EB[place] + [place] [address]|8 6665 x 2|79040 EBV Early Ab 1.37 11/13/2015 PT 9435283 PT 18.9 Seconds 11/10/2015 PT 0692234 INR 1.6 11/10/2015 PT 2810824 PT 16.8 Seconds 09/29/2015 PT 9083655 INR 1.4 09/29/2015 COMPLETE BLOOD COUNT 3769763 WBC 9.6 10e9/L 09/29/2015 COMPLETE BLOOD COUNT 5640496 RBC 4.51 10e12/L 6 COMPLETE BLOOD COUNT 7649108 HEMOGLOBIN 14.8 g/dL 09/29/2015 COMPLETE BLOOD COUNT 9963354 HEMATOCRIT 43.3 % 09/29/2015 COMPLETE BLOOD COUNT 1362805 MCV 96.0 fL 09/29/2015 COMPLETE BLOOD COUNT 8543431 MCH 32.8 pg 09/29/2015 COMPLETE BLOOD COUNT 5265246 MCHC 34.2 g/dL 09/29/2015 COMPLETE BLOOD COUNT 2708755 PLATELET COUNT 310 10e9/L 09/29/2015 COMPLETE BLOOD COUNT 3317315 Mean Plt Volume 9.7 fL 09/29/2015 COMPLETE BLOOD COUNT 8581886 Neutrophil 60.3 % 09/29/2015 COMPLETE BLOOD COUNT 7458954 Lymph Auto % 32.4 % 09/29/2015 COMPLETE BLOOD COUNT 5282394 Monocyte Auto % 6.5 % 09/29/2015 COMPLETE BLOOD COUNT 4676630 Eosinophil 0.7 % 09/29/2015 COMPLETE BLOOD COUNT 7372676 RDW 12.8 % 09/29/2015 COMPLETE BLOOD COUNT 4947473 Basophil 0.1 % 09/29/2015 COMPLETE BLOOD COUNT 3034418 Neutrophil Abs 5.79 10e9/L 09/29/2015 COMPLETE BLOOD COUNT 8882817 Lymphoctye Abs 3.11 10e9/L 09/29/2015 COMPLETE BLOOD COUNT 0649504 Monocyte Abs 0.62 10e9/L 09/29/2015 COMPLETE BLOOD COUNT 3763186 Eosinophil Abs 0.07 10e9/L 09/29/2015 COMPLETE BLOOD COUNT 7154763 RDW-SD 43.6 fL 09/29/2015 COMPLETE BLOOD COUNT 6819120 Basophil Abs 0.01 10e9/L 09/29/2015 IRON 80888 Iron 86 ug/dL 09/29/2015 COMPLETE BLOOD COUNT 0917103 WBC 9.6 10e9/L 09/29/2015 COMPLETE BLOOD COUNT 0170749 RBC 4.51 10e12/L 6 COMPLETE BLOOD COUNT 2411538 HEMOGLOBIN 14.8 g/dL 09/29/2015 COMPLETE BLOOD COUNT 1879986 HEMATOCRIT 43.3 % 09/29/2015 COMPLETE BLOOD COUNT 4328303 MCV 96.0 fL 09/29/2015 COMPLETE BLOOD COUNT 8728754 MCH 32.8 pg 09/29/2015 COMPLETE BLOOD COUNT 3386437 MCHC 34.2 g/dL 09/29/2015 COMPLETE BLOOD COUNT 6056959 PLATELET COUNT 310 10e9/L 09/29/2015 COMPLETE BLOOD COUNT 5703616 Mean Plt Volume 9.7 fL 09/29/2015 COMPLETE BLOOD COUNT 5602867 Neutrophil 60.3 % 09/29/2015 COMPLETE BLOOD COUNT 6817752 Lymph Auto % 32.4 % 09/29/2015 COMPLETE BLOOD COUNT 2520524 Monocyte Auto % 6.5 % 09/29/2015 COMPLETE BLOOD COUNT 4004966 RDW 12.8 % 09/29/2015 COMPLETE BLOOD COUNT 6530814 Eosinophil 0.7 % 09/29/2015 COMPLETE BLOOD COUNT 0274575 Basophil 0.1 % 09/29/2015 COMPLETE BLOOD COUNT 7362117 Neutrophil Abs 5.79 10e9/L 09/29/2015 COMPLETE BLOOD COUNT 2071715 Lymphoctye Abs 3.11 10e9/L 09/29/2015 COMPLETE BLOOD COUNT 1221016 Monocyte Abs 0.62 10e9/L 09/29/2015 COMPLETE BLOOD COUNT 1650284 Eosinophil Abs 0.07 10e9/L 09/29/2015 COMPLETE BLOOD COUNT 7464752 Basophil Abs 0.01 10e9/L 09/29/2015 COMPLETE BLOOD COUNT 1518822 RDW-SD 43.6 fL 09/29/2015 PT 2793347 PT 16.8 Seconds 09/29/2015 PT 1550891 INR 1.4 09/29/2015 IRON 21421 Iron 86 ug/dL 09/29/2015 PT [place] [facility] 29603 PRO T PAULIE 19.4 SEC 07/27/2015 PT [facility] 61017 INR M CMC 1.7 07/27/2015 PT [facility] 13063 PRO T PAULIE 21.4 SEC 06/21/2015 PT [facility] 91868 INR M CMC 1.9 06/21/2015 PT [facility] 81341 PRO T PAULIE 24.5 SEC 05/24/2015 PT [facility] 28336 INR M CMC 2.3 05/24/2015 Review of [...] - General Neurologic mental status Overall: alert 04/18/201 9 None Full Exam - General Neurologic [...] Procedures Procedure Codes Date ROUTINE VENIPUNCTURE CPT-4: 99502 01/19/2019 PROTHROMBIN TIME CPT-4: 90721 01/19/2019 COMPLETE CBC W/AUTO DIFF WBC CPT-4: 40695 01/19/2019 ANTISTREPTOLYSIN O T ITER CPT-4: 25501 01/19/2019 HEPATIC FUNCTION PANEL CPT-4: 24052 01/19/2019 MYCOPLASMA ANTIBODY, IFA CPT-4: 68654F6 01/19/2019 RESPIRATORY CULTURE & STAIN CPT-4: 02602 01/19/2019 STREP A ASSAY W/OPTIC CPT-4: 90197 01/19/2019 THER/PROPH/DIAG INJ SC/IM CPT-4: 08752 01/04/2019 TRIAMCINOLONE ACET I NJ NOS CPT-4: J3301 01/04/2019 ROUTINE VENIPUNCTURE CPT-4: 70081 12/18/2018 COMPLETE CBC W/AUTO DIFF WBC CPT-4: 14691 12/18/2018 COMPREHEN METABOLIC PANEL CPT-4: 33426 12/18/2018 HYDRATION IV INFUSIO N INIT CPT-4: 23770 12/16/2018 STREP A ASSAY W/OPTIC CPT-4: 38114 12/02/2018 ROUTINE VENIPUNCTURE CPT-4: 19964 11/30/2018 PT CPT-4: 8254368 11/30/2018 CEFTRIAXONE SODIUM I NJECTION CPT-4: J0696 11/30/2018 THER/PROPH/DIAG INJ SC/IM CPT-4: 38731 11/30/2018 URINE CULTURE/ COLON Y COUNT CPT-4: 54536 11/20/2018 URINALYSIS NONAUTO W /O SCOPE CPT-4: 33611 11/20/2018 CEFTRIAXONE SODIUM I NJECTION CPT-4: J0696 11/12/2018 THER/PROPH/DIAG INJ SC/IM CPT-4: 56885 11/12/2018 STREP A ASSAY W/OPTIC CPT-4: 28337 11/11/2018 CEFTRIAXONE SODIUM I NJECTION CPT-4: J0696 11/11/2018 THER/PROPH/DIAG INJ SC/IM CPT-4: 89331 11/11/2018 ROUTINE VENIPUNCTURE CPT-4: 85559 11/11/2018 ANTISTREPTOLYSIN O T ITER CPT-4: 77460 11/11/2018 COMPLETE CBC W/AUTO DIFF WBC CPT-4: 72049 11/11/2018 ROUTINE VENIPUNCTURE CPT-4: 29294 10/27/2018 PT CPT-4: 5157336 10/27/2018 THER/PROPH/DIAG INJ SC/IM CPT-4: 06259 10/09/2018 TRIAMCINOLONE ACET I NJ NOS CPT-4: J3301 10/09/2018 CEFTRIAXONE SODIUM I NJECTION CPT-4: J0696 10/08/2018 THER/PROPH/DIAG INJ SC/IM CPT-4: 53468 10/08/2018 CEFTRIAXONE SODIUM I NJECTION CPT-4: J0696 10/07/2018 THER/PROPH/DIAG INJ SC/IM CPT-4: 42378 10/07/2018 ROUTINE VENIPUNCTURE CPT-4: 51302 09/25/2018 COMPREHEN METABOLIC PANEL CPT-4: 47858 09/25/2018 COMPLETE CBC W/AUTO DIFF WBC CPT-4: 10501 09/25/2018 PT CPT-4: 4801587 09/25/2018 URINE CULTURE/ COLON Y COUNT CPT-4: 56542 09/10/2018 URINALYSIS NONAUTO W /O SCOPE CPT-4: 05569 09/10/2018 CEFTRIAXONE SODIUM I NJECTION CPT-4: J0696 09/08/2018 THER/PROPH/DIAG INJ SC/IM CPT-4: 03000 09/08/2018 ROUTINE VENIPUNCTURE CPT-4: 01955 08/14/2018 PT CPT-4: 4545405 08/14/2018 CEFTRIAXONE SODIUM I NJECTION CPT-4: J0696 07/02/2018 THER/PROPH/DIAG INJ SC/IM CPT-4: 39690 07/02/2018 THER/PROPH/DIAG INJ SC/IM CPT-4: 00343 07/02/2018 TRIAMCINOLONE ACET I NJ NOS CPT-4: J3301 07/02/2018 ROUTINE VENIPUNCTURE CPT-4: 65171 06/22/2018 ANTISTREPTOLYSIN O T ITER CPT-4: 84931 06/22/2018 ROUTINE VENIPUNCTURE CPT-4: 83935 06/17/2018 PROTHROMBIN TIME CPT-4: 06445 06/17/2018 URINE CULTURE/ COLON Y COUNT CPT-4: 99024 06/17/2018 CEFTRIAXONE SODIUM I NJECTION CPT-4: J0696 05/12/2018 THER/PROPH/DIAG INJ SC/IM CPT-4: 81838 05/12/2018 PROTHROMBIN TIME CPT-4: 75951 05/11/2018 CEFTRIAXONE SODIUM I NJECTION CPT-4: J0696 05/11/2018 THER/PROPH/DIAG INJ SC/IM CPT-4: 66288 05/11/2018 ROUTINE VENIPUNCTURE CPT-4: 57000 04/30/2018 PROTHROMBIN TIME CPT-4: 62434 04/30/2018 THER/PROPH/DIAG INJ SC/IM CPT-4: 83796 04/02/2018 TRIAMCINOLONE ACET I NJ NOS CPT-4: J3301 04/02/2018 IIV4 VACCINE 3 YRS+ IM AND UP CPT-4: 70176 03/24/2018 IMMUNIZATION ADMIN CPT- 4: 53593 03/24/2018 ROUTINE VENIPUNCTURE CPT-4: 75743 03/24/2018 PT CPT-4: 2793955 03/24/2018 PROTHROMBIN TIME CPT-4: 02592 02/24/2018 ROUTINE VENIPUNCTURE CPT-4: 23367 02/24/2018 ROUTINE VENIPUNCTURE CPT-4: 01185 02/05/2018 PROTHROMBIN TIME CPT-4: 74291 02/05/2018 URINE CULTURE/ COLON Y COUNT CPT-4: 15439 02/05/2018 CEFTRIAXONE SODIUM I NJECTION CPT-4: J0696 01/29/2018 THER/PROPH/DIAG INJ SC/IM CPT-4: 29286 01/29/2018 CEFTRIAXONE SODIUM I NJECTION CPT-4: J0696 01/28/2018 THER/PROPH/DIAG INJ SC/IM CPT-4: 23473 01/28/2018 URINALYSIS NONAUTO W /O SCOPE CPT-4: 25012 01/26/2018 URINE CULTURE/ COLON Y COUNT CPT-4: 72316 01/26/2018 ROUTINE VENIPUNCTURE CPT-4: 91295 01/01/2018 PROTHROMBIN TIME CPT-4: 21130 01/01/2018 THER/PROPH/DIAG INJ SC/IM CPT-4: 43693 12/25/2017 TRIAMCINOLONE ACET I NJ NOS CPT-4: J3301 12/25/2017 DEXAMETHASONE SODIUM PHOS CPT-4: J1100 12/25/2017 STREP A ASSAY W/OPTIC CPT-4: 69750 12/11/2017 CEFTRIAXONE SODIUM I NJECTION CPT-4: J0696 12/11/2017 THER/PROPH/DIAG INJ SC/IM CPT-4: 08136 12/11/2017 ROUTINE VENIPUNCTURE CPT-4: 05283 12/01/2017 ANTISTREPTOLYSIN O T ITER CPT-4: 24417 12/01/2017 PROTHROMBIN TIME CPT-4: 42915 12/01/2017 VITAMIN D TOTAL (25 HYDROXY) CPT-4: 08889 12/01/2017 VITAMIN B-12 CPT-4: 10993 12/01/2017 SPECIMEN HANDLING OF FICE-LAB CPT-4: 54328 11/05/2017 ROUTINE VENIPUNCTURE CPT-4: 74788 10/14/2017 ANTISTREPTOLYSIN O T ITER CPT-4: 08702 10/14/2017 ROUTINE VENIPUNCTURE CPT-4: 79925 10/06/2017 PROTHROMBIN TIME CPT-4: 53523 10/06/2017 THER/PROPH/DIAG INJ SC/IM CPT-4: 45748 10/06/2017 TRIAMCINOLONE ACET I NJ NOS CPT-4: J3301 10/06/2017 ROUTINE VENIPUNCTURE CPT-4: 50725 10/01/2017 VITAMIN B-12 CPT-4: 60011 10/01/2017 FOLIC ACID CPT-4: 70964 10/01/2017 ASSAY THYROID STIM H ORMONE CPT-4: 45219 10/01/2017 ASSAY OF FREE THYROXINE CPT-4: 01601 10/01/2017 ASSAY TRIIODOTHYRONI NE (T3) CPT-4: 89063 10/01/2017 ASSAY OF BLOOD/URIC ACID CPT-4: 24739 10/01/2017 RHEUMATOID FACTOR QUANT CPT-4: 82756 10/01/2017 RBC SED RATE AUTOMATED CPT-4: 34514 10/01/2017 ANTISTREPTOLYSIN O T ITER CPT-4: 21765 10/01/2017 ASSAY OF IRON CPT-4: 34662 10/01/2017 ASSAY OF FERRITIN CPT-4: 45416 10/01/2017 ANTINUCLEAR ANTIBODIES CPT-4: 31420 10/01/2017 A1C HPLC CPT-4: 88779 10/01/2017 VITAMIN D TOTAL (25 HYDROXY) CPT-4: 61668 10/01/2017 THER/PROPH/DIAG INJ SC/IM CPT-4: 14816 09/05/2017 TRIAMCINOLONE ACET I NJ NOS CPT-4: J3301 09/05/2017 URINALYSIS NONAUTO W /O SCOPE CPT-4: 69326 09/05/2017 URINE CULTURE/ COLON Y COUNT CPT-4: 18280 09/05/2017 ROUTINE VENIPUNCTURE CPT-4: 75234 09/04/2017 PROTHROMBIN TIME CPT-4: 94504 09/04/2017 ROUTINE VENIPUNCTURE CPT-4: 82041 08/07/2017 COMPLETE CBC W/AUTO DIFF WBC CPT-4: 15524 08/07/2017 COMPREHEN METABOLIC PANEL CPT-4: 76809 08/07/2017 PROTHROMBIN TIME CPT-4: 50443 08/07/2017 INFLUENZA ASSAY W/OPTIC CPT-4: 21251 07/15/2017 ROUTINE VENIPUNCTURE CPT-4: 94853 07/15/2017 COMPREHEN METABOLIC PANEL CPT-4: 56513 07/15/2017 COMPLETE CBC W/AUTO DIFF WBC CPT-4: 58232 07/15/2017 CEFTRIAXONE SODIUM I NJECTION CPT-4: J0696 07/04/2017 THER/PROPH/DIAG INJ SC/IM CPT-4: 87526 07/04/2017 THER/PROPH/DIAG INJ SC/IM CPT-4: 19205 07/04/2017 TRIAMCINOLONE ACET I NJ NOS CPT-4: J3301 07/04/2017 CEFTRIAXONE SODIUM I NJECTION CPT-4: J0696 07/02/2017 THER/PROPH/DIAG INJ SC/IM CPT-4: 07790 07/02/2017 CEFTRIAXONE SODIUM I NJECTION CPT-4: J0696 07/01/2017 THER/PROPH/DIAG INJ SC/IM CPT-4: 27729 07/01/2017 ROUTINE VENIPUNCTURE CPT-4: 60432 06/19/2017 PROTHROMBIN TIME CPT-4: 32293 06/19/2017 THER/PROPH/DIAG INJ SC/IM CPT-4: 49422 04/01/2017 TRIAMCINOLONE ACET I NJ NOS CPT-4: J3301 04/01/2017 ROUTINE VENIPUNCTURE CPT-4: 70855 02/10/2017 PROTHROMBIN TIME CPT-4: 95834 02/10/2017 URINALYSIS NONAUTO W /O SCOPE CPT-4: 01173 02/10/2017 URINE CULTURE/ COLON Y COUNT CPT-4: 95860 02/10/2017 ROUTINE VENIPUNCTURE CPT-4: 06247 02/05/2017 PROTHROMBIN TIME CPT-4: 50516 02/05/2017 THROAT CULTURE CPT-4: 86296 02/03/2017 STREP A ASSAY W/OPTIC CPT-4: 25474 01/13/2017 ROUTINE VENIPUNCTURE CPT-4: 00114 12/18/2016 PROTHROMBIN TIME CPT-4: 12565 12/18/2016 URINE CULTURE/ COLON Y COUNT CPT-4: 09778 08/27/2016 ASSAY THYROID STIM H ORMONE CPT-4: 25563 08/27/2016 COMPREHEN METABOLIC PANEL CPT-4: 92454 08/27/2016 COMPLETE CBC W/AUTO DIFF WBC CPT-4: 18305 08/27/2016 PROTHROMBIN TIME CPT-4: 78042 08/27/2016 ROUTINE VENIPUNCTURE CPT-4: 01244 08/27/2016 ROUTINE VENIPUNCTURE CPT-4: 70560 05/24/2016 COMPREHEN METABOLIC PANEL CPT-4: 15238 05/24/2016 PROTHROMBIN TIME CPT-4: 73039 05/24/2016 URINALYSIS NONAUTO W /O SCOPE CPT-4: 88544 04/23/2016 URINE CULTURE/ COLON Y COUNT CPT-4: 64870 04/23/2016 PRESCRIP TRANSMIT A ERX SY CPT-4: G8553 04/23/2016 AEROBIC WOUND CULTUR E & STN CPT-4: 94927 04/17/2016 ROUTINE VENIPUNCTURE CPT-4: 50463 04/11/2016 PROTHROMBIN TIME CPT-4: 89365 04/11/2016 ROUTINE VENIPUNCTURE CPT-4: 20934 03/12/2016 COMPLETE CBC W/AUTO DIFF WBC CPT-4: 69414 03/12/2016 COMPREHEN METABOLIC PANEL CPT-4: 94515 03/12/2016 ASSAY THYROID STIM H ORMONE CPT-4: 19560 03/12/2016 PROTHROMBIN TIME CPT-4: 01341 03/12/2016 ROUTINE VENIPUNCTURE CPT-4: 99221 02/12/2016 PROTHROMBIN TIME CPT-4: 75309 02/12/2016 ROUTINE VENIPUNCTURE CPT-4: 27621 02/01/2016 PROTHROMBIN TIME CPT-4: 82991 02/01/2016 ROUTINE VENIPUNCTURE CPT-4: 49947 01/22/2016 PROTHROMBIN TIME CPT-4: 74412 01/22/2016 ROUTINE VENIPUNCTURE CPT-4: 52646 11/10/2015 PROTHROMBIN TIME CPT-4: 89111 11/10/2015 CEFTRIAXONE SODIUM I NJECTION CPT-4: J0696 11/10/2015 THER/PROPH/DIAG INJ SC/IM CPT-4: 75654 11/10/2015 EB VIRUS VCA G/M + E BNA + EA CPT-4: 30641|22199 x 2|52477 016 THROAT CULTURE CPT-4: 76600 11/09/2015 STREP A ASSAY W/OPTIC CPT-4: 90480 11/09/2015 STREP A ASSAY W/OPTIC CPT-4: 53771 10/02/2015 ROUTINE VENIPUNCTURE CPT-4: 52006 09/29/2015 COMPLETE CBC W/AUTO DIFF WBC CPT-4: 43391 09/29/2015 ASSAY OF IRON CPT-4: 53856 09/29/2015 PROTHROMBIN TIME CPT-4: 87261 09/29/2015 ROUTINE VENIPUNCTURE CPT-4: 71669 07/27/2015 PROTHROMBIN TIME CPT-4: 24464 07/27/2015 URINALYSIS NONAUTO W /O SCOPE CPT-4: 49491 06/30/2015 URINE CULTURE/ COLON Y COUNT CPT-4: 15000 06/30/2015 ROUTINE VENIPUNCTURE CPT-4: 81502 06/21/2015 PROTHROMBIN TIME CPT-4: 09279 06/21/2015 URINE CULTURE/ COLON Y COUNT CPT-4: 70685 05/31/2015 ROUTINE VENIPUNCTURE CPT-4: 73588 05/24/2015 PROTHROMBIN TIME CPT-4: 78756 05/24/2015 URINALYSIS NONAUTO W /O SCOPE CPT-4: 74576 05/24/2015 Vital Signs Date Vital 01/19/2019 Blood [...] 1: 122/70 Code: 8480-6 BMI: 32.2 Code: 19996-0 Heart Rate 1: 88 bpm Height: 5'3" Respiratory Rate: 20 bpm SpO2: 96% Temperature: 36.8 (C ) / 98.2 (F) Weight: 182 lbs 07/23/2018 Blood Pressure 1: 132/80 Code: 8480-6 Heart Rate 1: 84 bpm Respiratory Rate: 20 bpm SpO2: 96% Temperature: 36.6 (C ) / 97.8 (F) Weight: 187 lbs 07/08/2018 Blood Pressure 1: 122/70 Code: 8480-6 BMI: 32.2 Code: 45088-8 Heart Rate 1: 88 bpm Height: 5'3" Respiratory Rate: 20 bpm Temperature: 36.6 (C ) / 97.8 (F) Weight: 182 lbs 07/02/2018 Blood Pressure 1: 124/68 Code: 8480-6 BMI: 32.8 Code: 97272-8 Heart Rate 1: 84 bpm Height: 5'3" Respiratory Rate: 20 bpm SpO2: 98% Temperature: 36.3 (C ) / 97.3 (F) Weight: 185 lbs 06/02/2018 Blood Pressure 1: 132/90 Code: 8480-6 Heart Rate 1: 84 bpm Respiratory Rate: 18 bpm SpO2: 97% Temperature: 36.6 (C ) / 97.9 (F) Weight: 180 lbs 05/11/2018 Blood Pressure 1: 124/80 Code: 8480-6 BMI: 31.7 Code: 18150-8 Heart Rate 1: 88 bpm Height: 5'3" Respiratory Rate: 20 bpm Temperature: 37.0 (C ) / 98.6 (F) Weight: 179 lbs 04/02/2018 Blood Pressure 1: 122/80 Code: 8480-6 Heart Rate 1: 78 bpm Respiratory Rate: 18 bpm SpO2: 97% Temperature: 36.2 (C ) / 97.1 (F) Weight: 181 lbs 8 oz 03/16/2018 Blood Pressure 1: 114/82 Code: 8480-6 BMI: 31.4 Code: 52219-9 Heart Rate 1: 76 bpm Height: 5'3" Respiratory Rate: 20 bpm Temperature: 37.0 (C ) / 98.6 (F) Weight: 177 lbs 02/16/2018 Blood Pressure 1: 114/72 Code: 8480-6 BMI: 31.7 Code: 11820-7 Heart Rate 1: 84 bpm Height: 5'3" Respiratory Rate: 20 bpm Temperature: 37.0 (C ) / 98.6 (F) Weight: 179 lbs 01/26/2018 Blood Pressure 1: 118 Code: 8480-6 BMI: 31.7 Code: 97790-2 Heart Rate 1: 80 bpm Height: 5'3" Respiratory Rate: 20 bpm SpO2: 98% Temperature: 36.4 (C ) / 97.6 (F) Weight: 179 lbs 01/01/2018 Blood Pressure 1: 112 Code: 8480-6 Heart Rate 1: 86 bpm Height: 5'3" Respiratory Rate: 22 bpm SpO2: 98% Temperature: 36.6 (C ) / 97.8 (F) Weight: 12/25/2017 Blood Pressure 1: 136 Code: 8480-6 BMI: 31.5 Code: 14086-0 Heart Rate 1: 84 bpm Height: 5'3" Respiratory Rate: 22 bpm SpO2: 98% Temperature: 36.6 (C ) / 97.9 (F) Weight: 178 lbs 12/11/2017 Blood Pressure 1: 122 Code: 8480-6 BMI: 31.2 Code: 89121-7 Heart Rate 1: 86 bpm Height: 5'3" Respiratory Rate: 24 bpm SpO2: 98% Temperature: 35.9 (C ) / 96.6 (F) Weight: 176 lbs 11/05/2017 Blood Pressure 1: 126/82 Code: 8480-6 BMI: 31.5 Code: 92443-4 Heart Rate 1: 84 bpm Height: 5'3" Respiratory Rate: 20 bpm SpO2: 97% Temperature: 36.8 (C ) / 98.3 (F) Weight: 178 lbs 10/06/2017 Blood Pressure 1: 114 Code: 8480-6 BMI: 31.4 Code: 19436-4 Heart Rate 1: 80 bpm Height: 5'3" Respiratory Rate: 20 bpm Temperature: 36.9 (C ) / 98.4 (F) Weight: 177 lbs 10/01/2017 Blood Pressure 1: 122/70 Code: 8480-6 BMI: 31.5 Code: 50550-1 Heart Rate 1: 84 bpm Height: 5'3" [...] 1: 132/78 Code: 8480-6 BMI: 32.1 Code: 66134-3 Heart Rate 1: 92 bpm Height: 5'3" Respiratory Rate: 20 bpm SpO2: 96% Temperature: 36.7 (C ) / 98.0 (F) Weight: 181 lbs 05/27/2017 Blood Pressure 1: 142/78 Code: 8480-6 Heart Rate 1: 90 bpm Height: 5'3" Respiratory Rate: 22 bpm SpO2: 98% Temperature: 36.1 (C ) / 97.0 (F) Weight: 05/20/2017 Blood Pressure 1: 122/76 Code: 8480-6 BMI: 31.2 Code: 19367-6 Heart Rate 1: 86 bpm Height: 5'3" Respiratory Rate: 20 bpm SpO2: 98% Temperature: 36.5 (C ) / 97.7 (F) Weight: 176 lbs 04/22/2017 Blood Pressure 1: 132/80 Code: 8480-6 BMI: 31.0 Code: 25823-2 Heart Rate 1: 84 bpm Height: 5'3" Respiratory Rate: 20 bpm Temperature: 36.8 (C ) / 98.2 (F) Weight: 175 lbs 04/01/2017 Blood Pressure 1: 124/70 Code: 8480-6 BMI: 30.8 Code: 88985-5 Heart Rate 1: 88 bpm Height: 5'3" Respiratory Rate: 20 bpm SpO2: 96% Temperature: 36.6 (C ) / 97.9 (F) Weight: 174 lbs 02/05/2017 Blood Pressure 1: 116/58 Code: 8480-6 Heart Rate 1: 96 bpm Height: 5'3" Respiratory Rate: 22 bpm SpO2: 99% Temperature: 36.7 (C ) / 98.1 (F) 01/13/2017 Blood Pressure 1: 136/78 Code: 8480-6 BMI: 30.3 Code: 77698-7 Heart Rate 1: 86 bpm Height: 5'3" Respiratory Rate: 18 bpm SpO2: 98% Temperature: 36.7 (C ) / 98.1 (F) Weight: 171 lbs 11/27/2016 Blood Pressure 1: 114/70 Code: 8480-6 BMI: 30.3 Code: 18603-4 Heart Rate 1: 76 bpm Height: 5'3" [...] 1: 122/78 Code: 8480-6 BMI: 31.0 Code: 88295-8 Heart Rate 1: 76 bpm Height: 5'3" Respiratory Rate: 20 bpm Temperature: 36.8 (C ) / 98.2 (F) Weight: 175 lbs 11/10/2015 Blood Pressure 1: 116/72 Code: 8480-6 BMI: 31.2 Code: 58749-6 Heart Rate 1: 76 bpm Height: 5'3" Respiratory Rate: 20 bpm Temperature: 37.2 (C ) / 98.9 (F) Weight: 176 lbs 11/09/2015 Blood Pressure 1: 122/78 Code: 8480-6 Heart Rate 1: 82 bpm Respiratory Rate: 20 bpm SpO2: 96% Temperature: 36.4 (C ) / 97.6 (F) Weight: 176 lbs 10/10/2015 BMI: 31.5 Code: 38397-6 Heart Rate 1: 72 bpm Height: 5'3" Respiratory Rate: 20 bpm Temperature: 36.6 (C ) / 97.8 (F) Weight: 178 lbs 10/02/2015 Blood Pressure 1: 124/78 Code: 8480-6 Heart Rate 1: 92 bpm Respiratory Rate: 22 bpm SpO2: 96% Temperature: 36.7 (C ) / 98.1 (F) Weight: 178 lbs 07/10/2015 Blood Pressure 1: 112/60 Code: 8480-6 BMI: 33.1 Code: 35509-6 Heart Rate 1: 92 bpm Height: 5'3" Respiratory Rate: 20 bpm Temperature: 36.9 (C ) / 98.4 (F) Weight: 187 lbs 06/27/2015 Blood Pressure 1: 106/62 Code: 8480-6 Heart Rate 1: 88 bpm Respiratory Rate: 22 bpm Temperature: 37.0 (C) / 98.6 (F) Weight: 190 lbs 06/08/2015 Blood Pressure 1: 112/78 Code: 8480-6 BMI: 33.1 Code: 04367-0 Heart Rate 1: 84 bpm Height: 5'3" Respiratory Rate: 20 bpm Temperature: 37.0 (C ) / 98.6 (F) Weight: 187 lbs 05/24/2015 Blood Pressure 1: 126/82 Code: 8480-6 BMI: 33.1 Code: 81586-3 Heart Rate 1: 92 bpm Height: 5'3" [...] Encounters Encounter Performer Loca tion Codes Date ([id number]) OFFICE/OUTPA TIENT VISIT EST Diagnosis: Other fatigue[ICD10: R53.83] Diagnosis: COUGH[ICD10: R05] Diagnosis: Acute pharyngitis due to other specified organisms[ICD10: J02.8] 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] Diagnosis: Abnormal levels of other serum enzymes[ICD10: R74.8] Ivon Moran BawteYUMIKO SHAW [employer] CPT-4: 86309 01/19/2019 ([id number]) OFFICE/OUTPA TIENT VISIT EST Diagnosis: Otalgia, left ear[ICD10: H92.02] Diagnosis: Other fatigue[ICD10: R53.83] [facility]von [facility] CPT-4: 46415 01/04/2019 ([id number]) NURSE/OUTPAT IENT VISIT EST Diagnosis: Dehydration[ICD10: E86.0] Kristine BRAMBILA [employer] CPT-4: 78947 12/18/2018 ([id number]) NURSE/OUTPAT IENT VISIT EST Diagnosis: Dehydration[ICD10: E86.0] Kristine BRAMBILA [employer] CPT-4: 74669 12/16/2018 ([id number]) OFFICE/OUTPA TIENT VISIT EST Diagnosis: Other fatigue[ICD10: R53.83] Diagnosis: Anemia, unspecified[ICD10: D64.9] Diagnosis: Benign lipomatous neoplasm of skin and subcutaneous tissue of trunk[ICD10: D17.1] Kristine BRAMBILA [facility] CPT-4: 27651 12/03/2018 ([id number]) OFFICE/OUTPA TIENT VISIT EST Diagnosis: Acute pharyngitis, unspecified[ICD10: J02.9] Diagnosis: Enlarged lymph nodes, unspecified[ICD10: R59.9] Ivon SHAW [facility] CPT-4: 83142 12/02/2018 ([id number]) OFFICE/OUTPA TIENT VISIT EST Diagnosis: Encounter for therapeutic drug level monitoring[ICD10: Z51.81] Diagnosis: residential (current) use of anticoagulants[ICD10: Z79.01] Diagnosis: Acute suppurative otitis media without spontaneous rupture of ear drum, left ear[ICD10: H66.002] Ivon BRMABILA [facility] CPT-4: 37210 11/30/2018 ([id number]) NURSE/OUTPAT IENT VISIT EST Diagnosis: Dysuria[ICD10: R30.0] Kristine BRAMBILA [facility] CPT-4: 90449 11/20/2018 ([id number]) NURSE/OUTPAT IENT VISIT EST Diagnosis: Streptococcal pharyngitis[ICD10: J02.0] Kristine ROWLAND [facility] CPT-4: 57523 11/12/2018 ([id number]) OFFICE/OUTPA TIENT VISIT EST Diagnosis: Streptococcal pharyngitis[ICD10: J02.0] Lulu Waltongrecia BRAMBILA [facility] CPT-4: 73913 11/11/2018 ([id number]) NURSE/OUTPAT IENT VISIT EST Diagnosis: Personal history of diseases of the blood and blood-forming organs and certain disorders involving the immune mechanism[ICD10: Z86.2] Kristine ROWLAND [facility] CPT-4: 54077 10/27/2018 ([id number]) NURSE/OUTPAT IENT VISIT EST Diagnosis: Other allergic rhinitis[ICD10: J30.89] Kristine ROWLAND [facility] CPT-4: 21801 10/09/2018 ([id number]) OFFICE/OUTPA TIENT VISIT EST Diagnosis: Acute recurrent maxillary sinusitis[ICD10: J01.01] Lulu BRAMBILA DO [facility] CPT-4: 47878 10/08/2018 ([id number]) OFFICE/OUTPA TIENT VISIT EST Diagnosis: Acute recurrent maxillary sinusitis[ICD10: J01.01] Diagnosis: Acute pharyngitis, unspecified[ICD10: J02.9] Lulu BRAMBILA [facility] CPT-4: 34735 10/07/2018 ([id number]) OFFICE/OUTPA TIENT VISIT EST Diagnosis: Dizziness and giddiness[ICD10: R42] Diagnosis: Personal history of pulmonary embolism[ICD10: Z86.711] Lulu BRAMBILA [facility] CPT-4: 87649 09/25/2018 ([id number]) NURSE/OUTPAT IENT VISIT EST Diagnosis: Dysuria[ICD10: R30.0] Kristine BRAMBILA [facility] CPT-4: 40928 09/10/2018 ([id number]) OFFICE/OUTPA TIENT VISIT EST Diagnosis: Streptococcal infection, unspecified site[ICD10: A49.1] Diagnosis: Furuncle right hand[ICD10: L02.521] Diagnosis: Localized swelling, mass and lump, neck[ICD10: R22.1] Kristine ROWLAND [facility] CPT-4: 37661 09/08/2018 ([id number]) NURSE/OUTPAT IENT VISIT EST Diagnosis: Encounter for therapeutic drug level monitoring[ICD10: Z51.81] Kristine BRAMBILA [facility] CPT-4: 76137 08/14/2018 ([id number]) OFFICE/OUTPA TIENT VISIT EST Diagnosis: Acute sinusitis, unspecified[ICD10: J01.90] Diagnosis: Otalgia, left ear[ICD10: H92.02] Ivon BALLER [facility] CPT-4: 37101 07/23/2018 ([id number]) OFFICE/OUTPA TIENT VISIT EST Diagnosis: Streptococcal infection, unspecified site[ICD10: A49.1] Kristine TERRELLR DO [facility] CPT-4: 58739 07/08/2018 ([id number]) OFFICE/OUTPA TIENT VISIT EST Diagnosis: Periapical abscess with sinus[ICD10: K04.6] Diagnosis: Streptococcal infection, unspecified site[ICD10: A49.1] Diagnosis: Localized enlarged lymph nodes[ICD10: R59.0] Ivon BALL ER DO [facility] CPT-4: 00438 07/02/2018 ([id number]) NURSE/OUTPAT IENT VISIT EST Diagnosis: Pain in unspecified joint[ICD10: M25.50] Kristine TERRELLR DO [facility] CPT-4: 07491 06/22/2018 ([id number]) NURSE/OUTPAT IENT VISIT EST Diagnosis: Paroxysmal tachycardia, unspecified[ICD10: I47.9] Diagnosis: Dysuria[ICD10: R30.0] Kristine BRAMBILA DO [facility] CPT-4: 16038 06/17/2018 ([id number]) OFFICE/OUTPA TIENT VISIT EST Diagnosis: Acute sinusitis, unspecified[ICD10: J01.90] Ivon SHAW DO [facility] CPT-4: 88348 06/02/2018 ([id number]) NURSE/OUTPAT IENT VISIT EST Diagnosis: Acute mastoiditis without complications, left ear[ICD10: H70.002] Kristine BALLER [facility] CPT-4: 78645 05/12/2018 ([id number]) OFFICE/OUTPA TIENT VISIT EST Diagnosis: Acute mastoiditis without complications, left ear[ICD10: H70.002] Diagnosis: residential (current) use of anticoagulants[ICD10: Z79.01] Ivon BALL ER DO [facility] CPT-4: 76270 05/11/2018 ([id number]) NURSE/OUTPAT IENT VISIT EST Diagnosis: Personal history of diseases of the blood and blood-forming organs and certain disorders involving the immune mechanism[ICD10: Z86.2] Kristine ROWLAND [facility] CPT-4: 54687 04/30/2018 ([id number]) OFFICE/OUTPA TIENT VISIT EST Diagnosis: Acute sinusitis, unspecified[ICD10: J01.90] Ivon SHAW DO [facility] CPT-4: 96568 04/02/2018 ([id number]) NURSE/OUTPAT IENT VISIT EST Diagnosis: FLU VACCINE[ICD10: Z23] Diagnosis: Encounter for therapeutic drug level monitoring[ICD10: Z51.81] Diagnosis: residential (current) use of anticoagulants[ICD10: Z79.01] Kristine BRAMBILA DO [facility] CPT-4: 99030 03/24/2018 ([id number]) OFFICE/OUTPA TIENT VISIT EST Diagnosis: Other allergic rhinitis[ICD10: J30.89] Diagnosis: Migraine, unspecified, not intractable, without status migrainosus[ICD10: G43.909] Ivon BRAMBILA DO [facility] CPT-4: 65447 03/16/2018 ([id number]) NURSE/OUTPAT IENT VISIT EST Diagnosis: Encounter for therapeutic drug level monitoring[ICD10: Z51.81] Kristine YULINE KalinImelda PATTY CLARK [facility] CPT-4: 49702 02/24/2018 OFFICE/OUTPATIENT SIT EST Diagnosis: Diarrhea, unspecified[ICD10: R19.7] Diagnosis: Abdominal distension (gaseous)[ICD10: R14.0] Diagnosis: Epigastric pain[ICD10: R10.13] Kristine YULINE KalinImelda PATTY CLARK [facility] CPT-4: 05858 02/16/2018 ([id number]) NURSE/OUTPAT IENT VISIT EST 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] Diagnosis: Urinary tract infection, site not specified[ICD10: N39.0] Kristine Oredeclan BRAMBILA DO [facility] CPT-4: 45558 02/05/2018 ([id number]) NURSE/OUTPAT IENT VISIT EST Diagnosis: Urinary tract infection, site not specified[ICD10: N39.0] Kristine BRAMBILA DO [facility] CPT-4: 93593 01/29/2018 ([id number]) NURSE/OUTPAT IENT VISIT EST Diagnosis: Urinary tract infection, site not specified[ICD10: N39.0] Kristine BRAMBILA DO [facility] CPT-4: 80611 01/28/2018 ([id number]) OFFICE/OUTPA TIENT VISIT EST Diagnosis: Other allergic rhinitis[ICD10: J30.89] Diagnosis: Acute suppurative otitis media without spontaneous rupture of ear drum, right ear[ICD10: H66.001] Diagnosis: Contact with and (suspected) exposure to potentially hazardous body fluids[ICD10: Z77.21] Ivon BRAMBILA DO [facility] CPT-4: 23888 01/26/2018 ([id number]) OFFICE/OUTPA TIENT VISIT EST Diagnosis: Otalgia, left ear[ICD10: H92.02] Diagnosis: Other lesions of oral mucosa[ICD10: K13.79] Ivon SHAW DO [facility] CPT-4: 33551 01/01/2018 ([id number]) OFFICE/OUTPA TIENT VISIT EST Diagnosis: Acute suppurative otitis media with spontaneous rupture of ear drum, left ear[ICD10: H66.012] Diagnosis: Migraine, unspecified, not intractable, without status migrainosus[ICD10: G43.909] Ivon BRAMBILA DO [facility] CPT-4: 71673 12/25/2017 ([id number]) OFFICE/OUTPA TIENT VISIT EST Diagnosis: Acute pharyngitis, unspecified[ICD10: J02.9] Ivon SHAW DO [facility] CPT-4: 25741 12/11/2017 ([id number]) NURSE/OUTPAT IENT VISIT EST Diagnosis: Encounter for therapeutic drug level monitoring[ICD10: Z51.81] Diagnosis: Other specified abnormal immunological findings in serum[ICD10: R76.8] Diagnosis: Vitamin D deficiency, unspecified[ICD10: E55.9] Diagnosis: Tachycardia, unspecified[ICD10: R00.0] Kristine ROWLAND [employer] CPT-4: 30917 12/01/2017 ([id number]) PREV VISIT E ST AGE 40-64 Diagnosis: Encounter for general adult medical examination without abnormal findings[ICD10: Z00.00] Diagnosis: Encounter for gynecological examination (general) (routine) without abnormal findings[ICD10: Z01.419] Kristine BRAMBILA [employer] CPT-4: 67802 11/05/2017 ([id number]) OFFICE/OUTPA TIENT VISIT EST Diagnosis: Other specified abnormal immunological findings in serum[ICD10: R76.8] Kristine BRAMBILA [employer] CPT-4: 18855 10/14/2017 ([id number]) OFFICE/OUTPA TIENT VISIT EST Diagnosis: Pain in right shoulder[ICD10: M25.511] 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 CPT-4: 02561 09/05/2017 ([id number]) OFFICE/OUTPA TIENT VISIT EST Diagnosis: residential (current) use of anticoagulants[ICD10: Z79.01] Kristine BRAMBILA DO [facility] CPT-4: 65925 09/04/2017 ([id number]) OFFICE/OUTPA TIENT VISIT EST Diagnosis: Fever, unspecified[ICD10: R50.9] Diagnosis: Encounter for therapeutic drug level monitoring[ICD10: Z51.81] Kristien BRAMBILA [facility] CPT-4: 06716 08/07/2017 OFFICE/OUTPATIENT SIT EST Diagnosis: Acute upper respiratory infection, unspecified[ICD10: J06.9] Diagnosis: Gastro-esophageal reflux disease without esophagitis[ICD10: K21.9] Diagnosis: Fever, unspecified[ICD10: R50.9] Ivon BRAMBILA [facility] CPT-4: 23976 07/15/2017 ([id number]) OFFICE/OUTPA TIENT VISIT EST Diagnosis: Otitis media, unspecified, left ear[ICD10: H66.92] Diagnosis: Localized enlarged lymph nodes[ICD10: R59.0] Kristine ROWLAND [facility] CPT-4: 96178 07/04/2017 ([id number]) OFFICE/OUTPA TIENT VISIT EST Diagnosis: Localized enlarged lymph nodes[ICD10: R59.0] Diagnosis: Otitis media, unspecified, left ear[ICD10: H66.92] Kristine ROWLAND [facility] CPT-4: 12117 07/02/2017 OFFICE/OUTPATIENT SIT EST Diagnosis: Otitis media, unspecified, left ear[ICD10: H66.92] Diagnosis: Localized enlarged lymph nodes[ICD10: R59.0] Ivon BALL [facility] CPT-4: 91838 07/01/2017 ([id number]) OFFICE/OUTPA TIENT VISIT EST Diagnosis: Encounter for therapeutic drug level monitoring[ICD10: Z51.81] Kristine BRAMBILA [facility] CPT-4: 02193 06/19/2017 OFFICE/OUTPATIENT SIT EST Diagnosis: Pneumonia, unspecified organism[ICD10: J18.9] Diagnosis: Insomnia, unspecified[ICD10: G47.00] Ivon BALL [facility] CPT-4: 98671 05/27/2017 OFFICE/OUTPATIENT SIT EST Diagnosis: Insomnia, unspecified[ICD10: G47.00] Diagnosis: Other chronic pain[ICD10: G89.29] Ivon BALL [facility] CPT-4: 87886 05/20/2017 ([id number]) OFFICE/OUTPA TIENT VISIT EST Diagnosis: Headache[ICD10: R51] Diagnosis: Diplopia[ICD10: H53.2] Kristine BRAMBILA 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] Diagnosis: Hematuria, unspecified[ICD10: R31.9] Kristine [facility] CPT-4: 72255 02/10/2017 ([id number]) OFFICE/OUTPA TIENT VISIT EST Diagnosis: Acute pharyngitis, unspecified[ICD10: J02.9] Diagnosis: Cervicalgia[ICD10: M54.2] Diagnosis: Localized enlarged lymph nodes[ICD10: R59.0] Diagnosis: Acute stress reaction[ICD10: F43.0] Kristine ROWLAND [employer] [facility] CPT-4: 98429 02/05/2017 ([id number]) OFFICE/OUTPA TIENT VISIT EST Diagnosis: Acute pharyngitis due to other specified organisms[ICD10: J02.8] Kristine BRAMBILA DO [facility] CPT-4: 86326 02/03/2017 ([id number]) OFFICE/OUTPA TIENT VISIT EST Diagnosis: Acute pharyngitis due to other specified organisms[ICD10: J02.8] 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] Kristine ROWLAND [employer] [facility] CPT-4: 23863 01/13/2017 ([id number]) OFFICE/OUTPA TIENT VISIT EST Diagnosis: Encounter for therapeutic drug level monitoring[ICD10: Z51.81] Kristine BRAMBILA [employer] [facility] CPT-4: 14507 12/18/2016 ([id number]) OFFICE/OUTPA TIENT VISIT EST Diagnosis: Pain in unspecified joint[ICD10: M25.50] Kristine ROWLAND [employer] CPT-4: 25882 11/27/2016 ([id number]) OFFICE/OUTPA TIENT VISIT EST Diagnosis: URI, ACUTE[ICD10: J06.9] Diagnosis: Dysuria[ICD10: R30.0] Diagnosis: residential (current) use of anticoagulants[ICD10: Z79.01] Diagnosis: Encounter for therapeutic drug level monitoring[ICD10: Z51.81] Kristine BRAMBILA DO [facility] CPT-4: 74280 08/27/2016 ([id number]) OFFICE/OUTPA TIENT VISIT EST 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] Diagnosis: Abnormal levels of other serum enzymes[ICD10: R74.8] Kristine ROWLAND [employer] CPT-4: 72419 05/24/2016 ([id number]) OFFICE/OUTPA TIENT VISIT EST Diagnosis: Urinary tract infection, site not specified[ICD10: N39.0] Nayeli BRAMBILA DO [facility] CPT-4: 49470 04/23/2016 ([id number]) OFFICE/OUTPA TIENT VISIT EST Diagnosis: Abrasion, left lower leg, initial encounter[ICD10: S80.812A] Nayeli YULINE KalinImelda P[facility] CPT-4: 32547 04/17/2016 ([id number]) OFFICE/OUTPA TIENT VISIT EST Diagnosis: residential (current) use of anticoagulants[ICD10: Z79.01] Kristine Yonathandeclan MINER KalinImelda [facility] CPT-4: 06922 04/11/2016 ([id number]) OFFICE/OUTPA TIENT VISIT EST Diagnosis: Migraine, unspecified, not intractable, without status migrainosus[ICD10: G43.909] Diagnosis: Fibromyalgia[ICD10: M79.7] Kristine Yonathandeclan MINER [employer]el[employer] [facility] CPT-4: 11281 03/12/2016 ([id number]) OFFICE/OUTPA TIENT VISIT EST Diagnosis: residential (current) use of anticoagulants[ICD10: Z79.01] Kristine Yonathanyumikogordo KRISTINE KalinImelda [facility] CPT-4: 75289 02/12/2016 ([id number]) OFFICE/OUTPA TIENT VISIT EST 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 CPT-4: 55025 11/10/2015 ([id number]) OFFICE/OUTPA TIENT VISIT EST Diagnosis: Acute tonsillitis, unspecified[ICD10: J03.90] Nayeli YULINE Luisa BRAMBILA [facility] CPT-4: 39021 11/09/2015 ([id number]) OFFICE/OUTPA TIENT VISIT EST Diagnosis: Localized swelling, mass and lump, neck[ICD10: R22.1] Diagnosis: Pain in left hip[ICD10: M25.552] Diagnosis: Pain in right hip[ICD10: M25.551] Kristine Yonathandeclan KRISTINE KalinImelda YONATHAN ROWLAND 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 CPT-4: 89594 07/27/2015 ([id number]) OFFICE/OUTPA TIENT VISIT EST Diagnosis: Fibromyalgia[ICD10: M79.7] Diagnosis: Tachycardia, unspecified[ICD10: R00.0] Kristine ROWLAND [facility] CPT-4: 77311 07/10/2015 ([id number]) OFFICE/OUTPA TIENT VISIT EST Diagnosis: Encounter for therapeutic drug level monitoring[ICD10: Z51.81] Diagnosis: Dysuria[ICD10: R30.0] Kristine BRAMBILA DO [facility] CPT-4: 48316 06/30/2015 OFFICE/OUTPATIENT SIT EST Diagnosis: Scar conditions and fibrosis of skin[ICD10: 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 O RENDER DO [facility] CPT-4: 59379 06/27/2015 ([id number]) OFFICE/OUTPA TIENT VISIT EST Diagnosis: residential (current) use of anticoagulants[ICD10: Z79.01] Kristine BRAMBILA [employer] [facility] CPT-4: 48010 06/21/2015 OFFICE/OUTPATIENT SIT EST Diagnosis: Fibromyalgia[ICD10: M79.7] Kristine BRAMBILA [employer] [facility] CPT-4: 88302 06/08/2015 ([id number]) OFFICE/OUTPA TIENT VISIT EST Diagnosis: Dysuria[ICD10: R30.0] Kristine [facility]AMBILA 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 ICD-9 : 790.5 ICD-10 : R74.8 01/19/2019 Visit Diagnosis Plan: Acute pharyngitis due to other specified organisms Discussion: rapid strep neg. ICD-9 : 462 ICD-10 : J02.8 01/19/2019 Appointment: Ivon Sky [address] ACUTE ILLNESS 01/19/2019 Visit Diagnosis Plan: [...] : R53.83 01/04/2019 Appointment: Ivon Sky [address] ACUTE ILLNESS 01/04/2019 Appointment: Kristine Brambila WPtel: [address] [place] [address] US LAB 12/18/2018 Appointment: Kristine Brambila WPtel: [address] [place] [address] ACUTE ILLNESS 12/16/2018 Visit Diagnosis Plan: Benign [...] R53.83 12/03/2018 Appointment: Kristine Brambila WPtel: [phone] [id number] ACUTE ILLNESS 12/03/2018 Visit Diagnosis Plan: Enlarged [...] : J02.9 12/02/2018 Appointment: Ivon Sky [address] [id number] FOLLOW UP 12/02/2018 Visit Diagnosis Plan: residential (current ) use of anticoagulants Discussion: pt/inr drawn in office ICD-9 : V58.61 ICD-10 : Z79.01 11/30/2018 Visit Diagnosis Plan: Acute suppurative otitis media without spontaneous rupture of ear drum, left ear Discussion: rocephin shot given in office. instructed to call or rtc with any new or worsening concerns. tylenol prn pain. ICD-9 : 382.00 ICD-10 : H66.002 11/30/2018 Appointment: Ivon Sky [address] [id number] ACUTE ILLNESS 11/30/2018 Patient Education: Coumadin- OptimizeRX Coupon [id number] https://www.[email or web address].com/samplemd/resources/getResource/61/[email or web address] Completed 11/30/2018 Appointment: Kristine Brambila WPtel: [address] [facility] UA 11/20/2018 Appointment: Kristine Brambila WPtel: [address] [place], [place] [phone] [place] INJECTION 11/12/2018 Visit Diagnosis Plan: Streptococcal pharyngitis Discussion: Strep A- positive ASO titer today along with CBC. Rocephin 1 gram. RTC tmrw for another injection. Patient states understanding. ICD-9 : 034.0 ICD-10 : J02.0 11/11/2018 Appointment: Lulu Navarro [address] [place], [place] [id number] ACUTE ILLNESS 11/11/2018 Appointment: Kristine Brambila WPtel: [address] [place] [address] ACUTE ILLNESS 10/27/2018 Appointment: Kristine Brambila WPtel: [address] [place] [address] INJECTION 10/09/2018 Visit Diagnosis Plan: Acute recurrent maxillary sinusi tis Discussion: Rocephin 1 gram administered in clinic- patient tolerated well. Continue with supportive treatment at home as well. Tylenol for headache. Salt water gargles and sinus rinses advised. Patient states understanding. ICD-9 : 461.0 ICD-10 : J01.10/08/2018 Appointment: Lulu Navarro [address] [place], [place] [phone] [place] INJECTION 10/08/2018 Visit Diagnosis Plan: Acute recurrent maxillary sinusi tis Discussion: Rocephin- 1 gram administered in clinic. Patient tolerated well. Sinus rinses encouraged. Rest and fluids. Tylenol or Motrin for pain and fever. FU PRN. Patient states understanding. ICD-9 : 461.0 ICD-10 : J01.10/07/2018 Appointment: Lulu Navarro [address] [place], [place] [id number] ACUTE ILLNESS 10/07/2018 Visit Diagnosis Plan: Dizziness [...] : R42 09/25/2018 Appointment: Lulu Navarro [address] [facility] [address] ACUTE ILLNESS 09/25/2018 Appointment: Kristine Brambila WPtel: [address] [place] [address] UA 09/10/2018 Visit Diagnosis Plan: Furuncle right [...] R22.1 09/08/2018 Appointment: Kristine Brambila WPtel: [address] [place] [address] ACUTE ILLNESS 09/08/2018 Patient Education: cefdinir- OptimizeRX Coupon [id number] https://www.ArthroCAD.com/samplemd/resources/getResource/61/[email or web address]-x4 Completed 09/08/2018 Appointment: Kristine Brambila WPtel: [address] [place] [address] LAB 08/14/2018 Visit Diagnosis Plan: Acute sinusitis, [...] ICD-10 : H92.02 07/23/2018 Appointment: Ivon Sky [address] [place] [address] ACUTE ILLNESS 07/23/2018 Patient Education: cyclobenzaprine- Opti mizeRX Coupon [id number] https://www.[employer]/sampleGridBridge/resources/getResource/61/[email or web address]-dv [email or web address].pdf Completed 07/23/2018 Visit Diagnosis Plan: Streptococcal infe ction, unspecified site Discussion: Randy Dove Sees dentist today t o assess tooth ICD-9 : 041.00 ICD-10 : A49.1 07/08/2018 Appointment: Kristine Brambila WPtel: [facility] FOLLOW UP 07/08/2018 Patient Education: penicillin V potassiu m- OptimizeRX Coupon [id number] https://www.[employer]/ArthroCAD/resources/getResource/61/[email or web address] [email or web address].pdf Completed 07/08/2018 Visit Diagnosis Plan: Localized enlarged [...] ICD-10 : K04.6 07/02/2018 Appointment: Ivon Sky [address] [place], [place] [phone] ACUTE ILLNESS 07/02/2018 Appointment: Kristine Brambila WPtel: [address] [facility] US LAB 06/22/2018 Appointment: Kristine Brambila WPtel: [address] [place], [place] [phone] UA 06/17/2018 Visit Diagnosis Plan: Acute sinusitis, unspecified Discussion: dc keflex. start cefdinir daily for 10 days. saline up nares prn congestion. if no improvement after antibiotics or worsening symtpoms, call clinic. 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 clindamycin prescribed for patient to take as directed. instructed to stop nasal sprays due to worsening pain/irritation and only use saline rinse up nares for now. call with any new or worsening symptoms. ICD-9 : 461.9 ICD-10 : J01.90 04/02/2018 Appointment: Ivon Sky [address] [place] [address] ACUTE ILLNESS 04/02/2018 Patient Education: Patient Medication Summary Completed 04/02/2018 Appointment: Kristine Brambila WPtel: [address] [place] [address] LAB 03/24/2018 Patient Education: Patient Medication Summary [...] : G43.909 03/16/2018 Appointment: Ivon Sky [address] [place] [address] ACUTE ILLNESS 03/16/2018 Patient Education: Patient Medication Summary Completed 03/16/2018 Appointment: Kristine Brambila WPtel: [address] [place] [address] LAB 02/24/2018 Patient Education: Patient Medication Summary Completed 02/24/2018 Appointment: Kristine Brambila WPtel: [address] [place] [address] US RESCHEDULED 02/18/2018 Visit Diagnosis Plan: Abdominal distension (gaseous) Discussion: Flagyl Restora Rx 1 daily Follow Up: 2 weeks ICD-9 : 787.3 ICD-10 : R14.0 02/16/2018 Visit Diagnosis Plan: Epigastric pain Discussion: Pepcid BID ICD-9 : 789.06 ICD-10 : R10.13 02/16/2018 Visit Diagnosis Plan: Diarrhea, unspecified Discussion: Flagyl ICD-9 : 787.91 ICD-10 : R19.7 02/16/2018 Appointment: Kristine Brambila WPtel: [address] [place] [address] ACUTE ILLNESS 02/16/2018 Patient Education: Patient Medication Summary Completed 02/16/2018 Appointment: Kristine Brambila WPtel: [address] [place] [address] [place] INJECTION 02/05/2018 Patient Education: Patient Medication Summary Completed 02/05/2018 Appointment: Kristine Brambila WPtel: [address] [place] [address] US INJECTION 01/29/2018 Patient Education: Patient Medication Summary Completed 01/29/2018 Appointment: Kristine Brambila WPtel: [address] [place] [address] [place] INJECTION 01/28/2018 Patient Education: Patient Medication [...] : H66.001 01/26/2018 Appointment: Ivon Sky [address] [place] [address] ACUTE ILLNESS 01/26/2018 Patient Education: Patient Medication [...] : K13.79 01/01/2018 Appointment: Ivon Sky 504 [facility]6676[facility] ACUTE ILLNESS 01/01/2018 Patient Education: [...] : G43.909 12/25/2017 Appointment: Ivon Sky [address] ACUTE ILLNESS 12/25/2017 Patient Education: Patient Medication Summary Completed 12/25/2017 Visit Diagnosis Plan: Acute pharyngitis, unspecified Discussion: rapid strep negative. rocephin injection given in office. clindamycin prescribed as well to start tomorrow for 10 days. increase fluid intake. call or rtc next week if new or worsening symptoms. ICD-9 : 462 ICD-10 : J02.9 12/11/2017 Appointment: Ivon Sky 504 [facility] ACUTE ILLNESS 12/11/2017 Patient Education: Patient Medication Summary Completed 12/11/2017 Appointment: Kristine Brambila WPtel: [address] [facility] [place] LAB 12/01/2017 Patient Education: Patient Medication Summary Completed 12/01/2017 Visit Diagnosis Plan: Encounter for gyne cological examination (general) (routine) without abnormal findings Discussion: Pap done as has a history of choriocarcinoma Had mammogram last month ICD-9 : V72.31 ICD-10 : Z01.419 11/05/2017 Appointment: Kristine Brambila WPtel: [address] [place] [address] Annual Well Visit 11/05/2017 Patient Education: Patient Medication Summary Completed 11/05/2017 Appointment: Kristine Brambila WPtel: [address] [place] [address] LAB 10/14/2017 Patient Education: Patient Medication Summary Completed 10/14/2017 Care Plan: X-RAY EXAM OF SHOULDER right LOINC : 46157-2 Pending 10/07/2017 Visit Diagnosis Plan: Pain in right shoulder Discussion: xray ordered of right shoulder to rule out fracture. 40 mg kenalog given as one shot to assist with pain. ICD-9 : 719.41 ICD-10 : M25.511 10/06/2017 Visit Diagnosis Plan: residential (current ) use of anticoagulants Discussion: pt/inr completed at today's visit. ICD-9 : V58.61 ICD-10 : Z79.01 10/06/2017 Appointment: Ivon Sky [address] [place] [address] ACUTE ILLNESS 10/06/2017 Patient Education: Patient Medication [...] I73.00 10/01/2017 Appointment: Kristine Brambila WPtel: [address] [place] [address] ACUTE ILLNESS 10/01/2017 Patient Education: Patient Medication [...] : T23.262A 09/10/2017 Appointment: Ivon Sky [address] [place] [address] ACUTE ILLNESS 09/10/2017 Patient Education: Patient Medication Summary Completed 09/10/2017 Appointment: Kristine Brambila WPtel: [address] [place] [address] [place] INJECTION 09/05/2017 Patient Education: Patient Medication Summary Completed 09/05/2017 Appointment: Kristine Brambila WPtel: [address] [place] [address] LAB 09/04/2017 Patient Education: Patient Medication Summary Completed 09/04/2017 Appointment: Kristine Brambila WPtel: [address] [place] [address] LAB 08/07/2017 Patient Education: Patient Medication Summary Completed 08/07/2017 Patient Education: Patient Medication Summary Completed 07/21/2017 Care Plan: CHEST X-RAY 2VW FRONTAL&LATL LOINC : 91560-7 Pending 07/21/2017 Visit Diagnosis Plan: Acute upper [...] : K21.9 07/15/2017 Appointment: Ivon Sky [address] [place] [address] ACUTE ILLNESS 07/15/2017 Patient Education: Patient Medication Summary Completed 07/15/2017 Appointment: Kristine Brambila WPtel: [address] [place], [place] [phone] [place] INJECTION 07/04/2017 Patient Education: Patient Medication Summary Completed 07/04/2017 Appointment: Kristine Brambila WPtel: [address] [place], [place] [phone] [place] INJECTION 07/02/2017 Patient Education: Patient Medication [...] : H66.92 07/01/2017 Appointment: Ivon Sky [address] [place] [address] ACUTE ILLNESS 07/01/2017 Patient Education: Patient Medication Summary Completed 07/01/2017 Care Plan: US EXAM OF HEAD AND NECK Pending 07/01/2017 Appointment: Kristine Brambila WPtel: [address] [place], [place] [phone] [place] LAB 06/19/2017 Patient Education: Patient Medication [...] : J18.9 05/27/2017 Appointment: Ivon Sky [address] ACUTE ILLNESS 05/27/2017 Patient Education: Patient [...] : G47.00 05/20/2017 Appointment: Ivon Sky 504 [facility]6676[facility] ACUTE ILLNESS 05/20/2017 Patient Education: Patient Medication Summary Completed 05/20/2017 Visit Diagnosis Plan: Headache Discu ssion: Discussed likely Migraine Discussed MRI results Discussed changing acetazolamide to HCTZ ICD-9 : 784.0 ICD-10 : R51 04/22/2017 Visit Diagnosis Plan: Diplopia Discu ssion: Updated dilated eye exam ICD-9 : 368.2 ICD-10 : H53.2 04/22/2017 Appointment: Kristine Brambila WPtel: [address] [place], [place] [phone] [place] FOLLOW UP 04/22/2017 Patient Education: Patient Medication Summary Completed 04/22/2017 Appointment: Kristine Brambila WPtel: [address] [place], [place] [phone] [place] RESCHEDULED 04/07/2017 Visit Plan: Saline nasal flushes pr n. Tylenol/Motrin prn headache. Notify if persists/symptoms worsening. 04/01/2017 Visit Plan: Saline nasal flushes pr n. Tylenol/Motrin prn headache. Notify if persists/symptoms worsening. 04/01/2017 Visit NOS Plan: Plan Notes: Saline nasal flushes prn. Tyle... 04/01/2017 Visit Diagnosis Plan: Acute sinusitis, unspecified Discussion: Kenalog 40mg IM x1 Decadron/Garamycin Nose [place] Mix Has appointment on April 28 with ENT ICD-9 : 461.9 ICD-10 : J01.90 04/01/2017 Appointment: Kristine Brambila WPtel: [phone] ACUTE ILLNESS 04/01/2017 Patient Education: Patient Medication Summary Completed 04/01/2017 Referral: Serjio Lugo WPtel: [address] Referral Appointment Requested 03/20/2017 Patient Education: Patient Medication Summary Completed 02/27/2017 Care Plan: CT ABDOMEN W/O DYE abd/pe lvis stone search LOINC : 29903-4 Pending 02/27/2017 Patient Education: Patient Medication Summary Completed 02/12/2017 Care Plan: MRI NECK SPINE W/O DYE LOINC : 06957-1 Pending 02/12/2017 Appointment: Kristine Brambila WPtel: [facility]9 [address] LAB 02/10/2017 Patient Education: Patient Medication [...] : M54.2 02/05/2017 Appointment: Kristine Brambila WPtel: [address] [place], [place] [phone] ACUTE ILLNESS 02/05/2017 Patient Education: Patient Medication Summary Completed 02/05/2017 Care Plan: Referral Order SNOMED-CT : [id number] Pending 02/05/2017 Appointment: Kristine Brambila WPtel: [address] [place] [address] THROAT SWAB 02/03/2017 Patient Education: Patient Medication Summary Completed 02/03/2017 Appointment: Kristine Brambila WPtel: [address] [place], [place] [address] 01/13 canceled~sl CANCELED 01/28/2017 Visit Plan: Supportive [...] : J02.8 01/13/2017 Appointment: Kristine Brambila WPtel: [address] [place], [place] [address] ACUTE ILLNESS 01/13/2017 Patient Education: Patient Medication Summary Completed 01/13/2017 Appointment: Kristine Brambilatel: [facility]1 [facility] LAB 12/18/2016 Patient Education: Patient Medication Summary Completed 12/18/2016 Visit Diagnosis Plan: Pain in unspecified joint Discussion: Will retry methotrexate since has worked in past to greatly reduce patient's pain--4 tabs week one then 5 tabs week 2 then 6 tabs weekly and fwup in 6 weeks ICD-9 : 719.49 ICD-10 : M25.50 11/27/2016 Appointment: Kristine Brambila WPtel: [facility] [address] 6/ lm~sl 11/26 confimed~sl MEDICATION REVIEW 11/27/2016 Patient Education: Patient Medication Summary Completed 11/27/2016 Visit Plan: Supportive care. Rest, Fluids, Tylenol/Motrin prn fever or bodyaches. Notify if worsening symptoms. 08/27/2016 Visit Plan: Supportive care. Rest, Fluids, Tylenol/Motrin prn fever or bodyaches. Notify if worsening symptoms. 08/27/2016 Visit NOS Plan: Plan Notes: Support gauri care. Rest, Fluids... 08/27/2016 Visit Diagnosis Plan: residential (current ) use of anticoagulants Discussion: PT/INR drawn ICD-9 : V58.61 ICD-10 : Z79.01 08/27/2016 Visit Diagnosis Plan: Dysuria Discus steven: Culture urine ICD-9 : 788.1 ICD-10 : R30.0 08/27/2016 Visit Diagnosis Plan: URI, ACUTE Dis cussion: Supportive care ICD-9 : 465.9 ICD-10 : J06.9 08/27/2016 Appointment: Kristine Brambila WPtel: [facility]7 [facility] 3/ confirmed`sl MEDICATION REVIEW 08/27/2016 Patient Education: Patient Medication Summary Completed 08/27/2016 Appointment: Kristine Brambila WPtel: [address] [place], [place] [phone] [place] BP CHECK 07/08/2016 Patient Education: Patient Medication Summary Completed 07/08/2016 Appointment: Kristine Brambila WPtel: [address] [place], [place] [phone] [place] LAB 05/24/2016 Patient Education: Patient Medication Summary Completed 05/24/2016 Appointment: Kristine Brambila WPtel: [address] [place], [place] [phone] 04/24 will not be able to get [...] with culture results 04/23/2016 Appointment: Nayeli Anderson [address] [place] [address] ACUTE ILLNESS 04/23/2016 Patient Education: Patient Medication [...] add oral abx 04/17/2016 Appointment: Nayeli Anderson [address] [place], [place] [address] ACUTE ILLNESS 04/17/2016 Patient Education: Patient Medication Summary Completed 04/17/2016 Patient Education: [facility] - Saving AutoInj - 18-64 - Dynamic Portal ID Completed 04/17/2016 Appointment: Kristine Brambila WPtel: [address] [place], [place] [phone] [place] LAB 04/11/2016 Patient Education: Patient Medication [...] migraines 03/12/2016 Appointment: Kristine Brambila WPtel: [address] [facility] 03/12 confirmed-sp FOLLOW UP 03/12/2016 Patient Education: Patient Medication Summary Completed 03/12/2016 Appointment: Kristine Brambila WPtel: [address] [place], [place] [address] LAB 02/12/2016 Patient Education: Patient Medication Summary Completed 02/12/2016 Appointment: Kristine Brambila WPtel: [address] [facility]676[facility] LAB 02/01/2016 Patient Education: Patient Medication Summary Completed 02/01/2016 Appointment: Kristine Brambila WPtel: [address] [facility] LAB 01/22/2016 Patient Education: Patient Medication [...] improvement 11/10/2015 Appointment: Julee Slater WPtel: 2[address] [facility]6676[facility] ACUTE ILLNESS 11/10/2015 Patient Education: Patient [...] care otherwise 11/09/2015 Appointment: Nayeli Anderson 2[address] [facility] ACUTE ILLNESS 11/09/2015 Patient Education: Patient Medication Summary Completed 11/09/2015 Referral: Maximiliano Neves WPtel: [phone] [id number] [place] Spoke with Sally at Dr. Ta's offic e. Patient is scheduled for 10/16/15 at 3:15pm. Demographics and notes have been faxed. Patient has been informed. -sp Initi ated 10/16/2015 Visit Plan: Proceed with biopsy/rem oval of right posterior neck node Mammogram ordered--US of right axilla if needed 10/10/2015 Appointment: Kristine Brambila WPtel: [phone] [facility] 10/08 confirmed ~sl FOLLOW UP 10/10/2015 Patient Education: Patient Medication Summary Completed 10/10/2015 Patient Education: [facility] - Saving AutoInj - 18-64 - Dynamic Portal ID Completed 10/10/2015 Care Plan: MAMMOGRAM SCREENING LOINC : 46231-8 Pending 10/10/2015 Visit Plan: Labs ordered - [...] week for fci management of pain 10/02/2015 Visit Plan: Labs [...] of pain 10/02/2015 Appointment: Nayeli Anderson 2[address] [facility]6676[facility] ACUTE ILLNESS 10/02/2015 Patient Education: Patient Medication Summary Completed 10/02/2015 Patient Education: [facility] - Saving AutoInj - 18-64 - Dynamic Portal ID Completed 10/02/2015 Care Plan: US EXAM OF HEAD AND NECK Pending 10/02/2015 Appointment: Kristine Brambila WPtel: [phone] [facility] US LAB 09/29/2015 Patient Education: Patient Medication Summary Completed 09/29/2015 Appointment: Kristine Brambila WPtel: [phone] [facility] US LAB 07/27/2015 Patient Education: Patient Medication Summary Completed 07/27/2015 Visit Plan: Trial of Savella Did no t tolerate lyrica Did not tolerate cymbalta 07/10/2015 Appointment: [facility]el[phone] 07/10 appt confirmed cn FOLLOW UP 07/10/2015 Patient Education: Patient Medication Summary Completed 07/10/2015 Appointment: Krist[facility] Brambila WPtel: [phone] [facility] UA 06/30/2015 Patient Education: Patient Medication Summary Completed 06/30/2015 Visit Plan: Recommended Vitamin E o il topically bid to area of scar. Currently taking Amoxicillin for sinusitis. Recommend Flonase nasal spray 06/27/2015 Visit Plan: Recommended Vitamin E o il topically bid to area of scar. Currently taking Amoxicillin for sinusitis. Recommend Flonase nasal spray 06/27/2015 Appointment: Alejandro Hatchsa M WPtel: [address] [place], [place] [phone] ACUTE ILLNESS 06/27/2015 Patient Education: Patient Medication Summary Completed 06/27/2015 Appointment: Meli Hatch WPtel: [phone] [facility] 06/22/15 appt confirmed and she will drea ng new insurance card ACUTE ILLNESS 06/26/2015 Appointment: Kristine Brambila WPtel: [phone] [facility] US LAB 06/21/2015 Patient Education: Patient Medication Summary Completed 06/21/2015 Visit Plan: Add cymbalta at 30mg da laurie Repeat PT/INR in 2weeks Recheck 1mo Awaiting ID to reschedule 06/08/2015 Visit Plan: Add cymbalta at 30mg da laurie Repeat PT/INR in 2weeks Recheck 1mo Awaiting ID to reschedule 06/08/2015 Appointment: Kristine Brambila WPtel: [address] [place], [place] [address] 06/07 lm ~sl 06/08 confirmed ~sl FOLLOW UP 06/08/2015 Patient Education: Patient Medication Summary Completed 06/08/2015 Patient Education: [facility] - Saving AutoInj - Cymbalta - 18-64 - Dynamic Portal ID Completed 06/08/2015 Patient Education: [facility] - Saving AutoInj - 18-64 - Dynamic Portal ID Completed 06/08/2015 Appointment: Kristine Brambila WPtel: [phone] [facility] US UA 05/31/2015 Patient Education: Patient Medication Summary Completed 05/31/2015 Visit Plan: Check PT/INR today Stop ped Lyrica due to fluid retention Has appt. scheduled at [facility] with hematology and infectious disease 06/08 Follow-up appt. in 2 weeks following appt. at . 05/24/2015 Visit Plan: Check PT/INR today Stop ped Lyrica due to fluid retention Has appt. scheduled at [facility] with hematology and infectious disease 06/08 Follow-up appt. in 2 weeks following appt. at . 05/24/2015 Appointment: Meli Hatch WPtel: [phone] [id number] NEW PATIENT 05/24/2015 Patient Education: Patient Medication Summary Completed 05/24/2015 Patient Education: [facility] - Saving AutoInj - 18-64 - Dynamic Portal ID Completed 05/24/2015 Referral: Annamarie Melo WPtel: [facility] [address] [facility] [place] Referral Initiated Instructions Comment . [...] to fluid retention Has appt. scheduled at [facility] with hematology and infectious disease 06/08 Follow-up appt. in 2 weeks following appt. at . . Check PT/INR today Stopped Lyrica due to fluid retention Has appt. 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 Recommended Vitami n [...]
--- OUTSIDE RECORDS SUMMARY | 2020-01-28 14:27 | XMS REPORT | CCD ---
Author Author Heydi Hatch APRN Organization [facility] Address [address] [place] [address] Phone Care Team Providers Care Table Worker Name Role Phone Kristine Brambila D.O., PP Unavailable CCM Unavailable Summary Purpose Interface Exchange Insurance Providers Payer name Policy type / Coverage type Covered alliance party ID Effective Begin Date Effective End Date Blue Cross Blue Shield Blue Cross/Bl ue Shield [id number] 2018 Un known Family History Family History data not found Social History Social History Element Codes Description Effective Dates Tobacco history SNOMED CT: 40346552 Current every day smoker 06/08/2015 Allergies, Adverse [...] ICD-9: 786.2 ICD-10: R05 Active 07/21/2017 Unknown assisted (current) use of anticoagulants ICD-9: [...] 02/10/2017 Unknown Pelvic and perineal pain ICD-9: ABI1001 ICD-10: R10.2 Active 02/10/2017 Unknown Cervicalgia ICD-9: [...] COUGH ICD-9: 786.2 ICD-10: R05 07/21/2017 Active assisted (current) use of anticoagulants ICD-9: V58.61 [...] 02/10/2017 Active Pelvic and perineal pain ICD-9: [id number] ICD-10: R10.2 02/10/2017 Active Cervicalgia ICD-9: 723.1 [...] Fill Instructions Vistaril 25 mg capsule RxNorm: 751548 1 Capsule(s) PO TID 01/27/2019 07/25/2019 Active ProAir HFA 90 mcg/ac tuation aerosol inhaler RxNorm: 656849 2 Puff(s) INH Q4H as needed 01/20/2019 No Stop Date Active Tessalon Perles 100 mg capsule RxNorm: 693192 1 Capsule(s) PO TID a s needed for cough 01/20/2019 No Stop Date Active doxycycline hyclate 100 mg capsule RxNorm: 1232511 1 Capsule(s) PO BID 01/20/2019 01/19/2019 In active doxycycline hyclate 100 mg capsule RxNorm: 4634923 1 Capsule(s) PO BID 01/20/2019 01/26/2019 In active Coumadin 5 mg tablet RxNorm: 149096 1 Tablet(s) PO QD (on Fri, , Fri, , Fri and Fri) 01/05/2019 06/09/2019 Active Generic For:COUMADIN 5MG TAB 05/25/2018 3:20:45 PM N O T I C E Last quantity doesn't match original quantity amoxicillin 500 mg c apsule RxNorm: 261890 1 Capsule(s) PO BID 01/05/2019 01/14/2019 Inactive amoxicillin 500 mg c apsule RxNorm: 272808 1 Capsule(s) PO BID 01/05/2019 01/04/2019 Inactive hydrocodone 10 mg-ac etaminophen 325 mg tablet RxNorm: 962517 1 Tablet(s) PO Q4-6H as needed for pain 01/01/2019 No Stop Date Active Diflucan 150 mg tablet RxNorm: 857919 Tablet(s) TABLET(S) 1 TABLET(S) PO QW NEEDED 12/23/2018 No Stop Date Active cyclobenzaprine 10 m g tablet RxNorm: 914894 1 TABLET(S) PO QD NEEDED 12/23/2018 06/20/2019 Ac tive Coumadin 5 mg tablet RxNorm: 981706 Tablet(s) TAKE 1 TABLET(S) BY MOUTH FRI, FRI, FRI, Friday12/23/2018 01/04/2019 Inactive Generic For:COUMADIN 5MG TA B 05/25/2018 3:20:45 PM N O T I C E Last quantity doesn't match original quantity Vitamin D2 50,000 un it capsule RxNorm: 0936001 1 Capsule(s) PO QW 12/04/2018 03/03/2019 Active Medrol (Juan Francisco) 4 mg ta blets in a dose pack RxNorm: 793429 Tablet(s) PO as direc liane 12/04/2018 12/03/2018 In active Vitamin D2 50,000 un it capsule RxNorm: 3090134 1 Capsule(s) PO QW 12/04/2018 12/03/2018 Inactive Medrol (Juan Francisco) 4 mg ta blets in a dose pack RxNorm: 501799 Tablet(s) PO as direc liane 12/04/2018 01/19/2019 In active Zithromax Z-Juan Francisco 250 mg tablet RxNorm: 455982 Tablet(s) PO take as directed 12/02/2018 No Stop Date Active Vistaril 25 mg capsule RxNorm: 132802 Capsule(s) 1 Capsule(s) PO TID as needed for anxiety 11/30/2018 02/27/2019 Active Coumadin 5 mg tablet RxNorm: 644074 Tablet(s) TAKE 1 TABLET(S) BY MOUTH FRI, FRI, FRI, Friday11/30/2018 12/22/2018 Inactive Generic For:COUMADIN 5MG TA B 05/25/2018 3:20:45 PM N O T I C E Last quantity doesn't match original quantity Diflucan 150 mg tablet RxNorm: 837496 Tablet(s) TABLET(S) 1 TABLET(S) PO QW NEEDED 11/26/2018 12/22/2018 Inactive cholestyramine (with sugar) 4 gram oral powder RxNorm: 626192 1 UNIT DOSE PO QD 11/24/2018 02/21/2019 Ac tive acetazolamide 125 mg tablet RxNorm: 447253 1 Tablet(s) PO BID 11/24/2018 02/21/2019 Active cyclobenzaprine 10 m g tablet RxNorm: 335346 1 Tablet(s) PO QD as needed 11/17/2018 12/22/2018 In active hydrocodone 10 mg-ac etaminophen 325 mg tablet RxNorm: 808039 1 Tablet(s) PO Q4-6H as needed for pain 11/05/2018 No Stop Date Active acetazolamide 125 mg tablet RxNorm: 615718 1 TABLET(S) PO BID 10/26/2018 11/23/2018 Inactive cholestyramine (with sugar) 4 gram oral powder RxNorm: 229954 1 UNIT DOSE PO QD 10/26/2018 11/23/2018 In active Coumadin 5 mg tablet RxNorm: 863475 TAKE 1 TABLET(S) BY MOUTH FRI, FRI, FRI, Friday10/26/2018 11/29/2018 Inactive Generic For:COUMADIN 5MG TAB 05/25/2018 3:20:45 PM N O T I C E Last quantity doesn't match original quantity Diflucan 150 mg tablet RxNorm: 978991 TABLET(S) 1 TABLET(S) PO QW NEEDED 10/26/2018 11/25/2018 In active hydrocodone 10 mg-ac etaminophen 325 mg tablet RxNorm: 962766 1 Tablet(s) PO Q4-6H as needed for pain 10/08/2018 11/04/2018 Inactive acetazolamide 125 mg tablet RxNorm: 392574 1 Tablet(s) PO BID 09/24/2018 10/23/2018 Inactive Coumadin 5 mg tablet RxNorm: 750080 TAKE 1 TABLET(S) BY MOUTH FRI, FRI, FRI, Friday09/24/2018 10/25/2018 Inactive Generic For:COUMADIN 5MG TAB 05/25/2018 3:20:45 PM N O T I C E Last quantity doesn't match original quantity Diflucan 150 mg tablet RxNorm: 359803 Tablet(s) 1 Tablet(s) PO QW as needed 09/24/2018 10/25/2018 In active cyclobenzaprine 10 m g tablet RxNorm: 830747 1 Tablet(s) PO QD as needed 09/24/2018 11/16/2018 In active Vistaril 25 mg capsule RxNorm: 330016 1 Capsule(s) PO TID as needed for anxiet y 09/24/2018 11/29/2018 In active cholestyramine (with sugar) 4 gram oral powder RxNorm: 440494 1 Unit Dose PO QD 09/24/2018 10/23/2018 In active Pyridium 200 mg tablet RxNorm: 2415108 1 Tablet(s) PO TID 09/10/2018 09/19/2018 Inactive Pyridium 200 mg tablet RxNorm: 9581985 1 Tablet(s) PO TID 09/10/2018 09/09/2018 Inactive hydrocodone 10 mg-ac etaminophen 325 mg tablet RxNorm: 011624 1 Tablet(s) PO Q4-6H as needed for pain 09/08/2018 10/07/2018 Inactive cefdinir 300 mg capsule RxNorm: 152451 1 Capsule(s) PO BID 09/08/2018 09/21/2018 Inactive hydrocodone 10 mg-ac etaminophen 325 mg tablet RxNorm: 758822 1 Tablet(s) PO Q4-6H as needed for pain 08/13/2018 09/07/2018 Inactive cyclobenzaprine 10 m g tablet RxNorm: 824388 1 Tablet(s) PO QD as needed 07/23/2018 09/23/2018 In active Diflucan 150 mg tablet RxNorm: 123668 Tablet(s) 1 Tablet(s) PO QW as needed 07/23/2018 09/23/2018 In active Ciprodex 0.3 %-0.1 % ear drops,suspension RxNorm: 810237 4 Drop(s) left otic ( ear) BID 07/23/2018 07/29/2018 Inactive hydrocodone 10 mg-ac etaminophen 325 mg tablet RxNorm: 956308 1 Tablet(s) PO Q4-6H as needed for pain 07/16/2018 08/12/2018 Inactive penicillin V potassi um 500 mg tablet RxNorm: 425213 1 Tablet(s) PO Q6H 07/08/2018 07/17/2018 In active cyclobenzaprine 10 m g tablet RxNorm: 971995 1 Tablet(s) PO QD as needed 06/22/2018 07/22/2018 In active Vistaril 25 mg capsule RxNorm: 478402 1 Capsule(s) PO TID as needed for anxiet y 06/22/2018 09/23/2018 In active cholestyramine (with sugar) 4 gram oral powder RxNorm: 204926 1 Unit Dose PO QD 06/22/2018 09/23/2018 In active hydrocodone 10 mg-ac etaminophen 325 mg tablet RxNorm: 732760 1 Tablet(s) PO Q4-6H as needed for pain 06/17/2018 07/15/2018 Inactive cefdinir 300 mg capsule RxNorm: 908728 1 Capsule(s) PO BID 06/02/2018 06/11/2018 Inactive Diflucan 150 mg tablet RxNorm: 531815 Tablet(s) 1 Tablet(s) PO QW as needed 06/02/2018 07/22/2018 In active Coumadin 5 mg tablet RxNorm: 434145 TAKE 1 TABLET(S) BY MOUTH FRI, FRI, FRI, Friday05/25/2018 07/15/2018 Inactive Generic For:COUMADIN 5MG TAB 05/25/2018 3:20:45 PM N O T I C E Last quantity doesn't match original quantity Imitrex 50 mg tablet RxNorm: 582587 Tablet(s) 1 Tablet(s) PO at headache. re peat in 2 hours if no relief. no more than 2 tabs per day 05/19/2018 No Stop Date Active cholestyramine (with sugar) 4 gram oral powder RxNorm: 519264 1 Unit Dose PO QD 05/19/2018 11/14/2018 In active Vistaril 25 mg capsule RxNorm: 408837 1 Capsule(s) PO TID 05/19/2018 11/14/2018 Inactive Coumadin 5 mg tablet RxNorm: 649572 Tablet(s) TAKE 1 TABLET(S) BY MOUTH FRI, FRI, FRI, Friday05/19/2018 05/24/2018 Inactive Generic For:COUMADIN 5MG TA B N O T I C E Last quantity doesn't match original quantity acetazolamide 125 mg tablet RxNorm: 918559 1 Tablet(s) PO BID 05/19/2018 09/23/2018 Inactive cyclobenzaprine 10 m g tablet RxNorm: 526887 1 Tablet(s) PO QD as needed 05/19/2018 11/17/2018 In active Coumadin 7.5 mg tablet RxNorm: 418815 1 Tablet(s) PO QD , , 05/19/2018 01/04/2019 In active ketorolac 10 mg tablet RxNorm: 330908 1 Tablet(s) PO QHS as needed 05/11/2018 No Stop Date Active promethazine 12.5 mg tablet RxNorm: 907009 1 Tablet(s) PO Q6H as needed 04/23/2018 04/22/2018 In active acetazolamide 125 mg tablet RxNorm: 296208 1 Tablet(s) PO BID 04/23/2018 05/18/2018 Inactive Coumadin 5 mg tablet RxNorm: 736075 TAKE 1 TABLET(S) BY MOUTH FRI, FRI, FRI, Friday04/23/2018 05/18/2018 Inactive Generic For:COUMADIN 5MG TAB N O T I C E Last quantity doesn't match original quantity Imitrex 50 mg tablet RxNorm: 608406 1 Tablet(s) PO at headache. repeat in 2 hours if no relief. no more than 2 tabs per day 04/23/2018 05/18/2018 Inactive cyclobenzaprine 10 m g tablet RxNorm: 056687 1 Tablet(s) PO QD as needed 04/23/2018 05/18/2018 In active clindamycin HCl 300 mg capsule RxNorm: 513291 1 Capsule(s) PO TID 04/02/2018 04/11/2018 Inactive hydrocodone 10 mg-ac etaminophen 325 mg tablet RxNorm: 304011 1 Tablet(s) PO Q4-6H as needed for pain 03/24/2018 06/16/2018 Inactive promethazine 12.5 mg tablet RxNorm: 320738 1 Tablet(s) PO Q6H 03/23/2018 04/23/2018 Inactive Imitrex 50 mg tablet RxNorm: 991015 1 Tablet(s) PO at headache. repeat in 2 hours if no relief. no more than 2 tabs per day 03/23/2018 04/22/2018 Inactive Diflucan 150 mg tablet RxNorm: 225325 1 Tablet(s) PO QW as needed 03/23/2018 06/01/2018 Inactive Coumadin 5 mg tablet RxNorm: 905739 Tablet(s) 1 Tablet(s) PO Mon, Wed, Fri, Sun 03/23/2018 04/22/2018 In active Imitrex 100 mg tablet RxNorm: 930551 Tablet(s) PO take one tablet at sign of headache and repeat in 2 hours if ineffective 03/16/2018 04/01/2018 Inactive ondansetron HCl 4 mg tablet RxNorm: 326159 1 Tablet(s) PO Q4H as needed for nausea 02/24/2018 04/01/2018 In active hydrocodone 10 mg-ac etaminophen 325 mg tablet RxNorm: 718909 1 Tablet(s) PO Q4-6H as needed for pain 02/24/2018 03/23/2018 Inactive Coumadin 5 mg tablet RxNorm: 673543 Tablet(s) 1 Tablet(s) PO Mon, Wed, Fri, Sun 02/20/2018 03/22/2018 In active promethazine 12.5 mg tablet RxNorm: 992870 1 Tablet(s) PO Q6H 02/20/2018 03/22/2018 Inactive Pepcid 40 mg tablet RxNorm: 238578 1 Tablet(s) PO BID for stomach 02/16/2018 03/17/2018 In active Flagyl 500 mg tablet RxNorm: 248426 1 Tablet(s) PO TID 02/16/2018 02/25/2018 Inactive Imitrex 50 mg tablet RxNorm: 099728 1 Tablet(s) PO at headache. repeat in 2 hours if no relief. no more than 2 tabs per day 01/27/2018 03/15/2018 Inactive Coumadin 5 mg tablet RxNorm: 871926 1 Tablet(s) PO Mon, Wed, Fri, Sun 01/27/2018 02/20/2018 In active amoxicillin 875 mg t ablet RxNorm: 182422 1 Tablet(s) PO BID 01/26/2018 02/04/2018 Inactive Imitrex 50 mg tablet RxNorm: 956568 1 Tablet(s) PO at headache. repeat in 2 hours if no relief. no more than 2 tabs per day 01/26/2018 03/22/2018 Inactive cyclobenzaprine 10 m g tablet RxNorm: 873974 1 Tablet(s) PO QD as needed 01/23/2018 03/23/2018 In active promethazine 12.5 mg tablet RxNorm: 964217 1 Tablet(s) PO Q6H 01/23/2018 02/19/2018 Inactive Diflucan 150 mg tablet RxNorm: 804695 1 Tablet(s) PO QW as needed 01/22/2018 03/22/2018 Inactive acetazolamide 125 mg tablet RxNorm: 939729 1 Tablet(s) PO BID 01/22/2018 04/21/2018 Inactive Imitrex 50 mg tablet RxNorm: 710635 1 Tablet(s) PO at headache. repeat in 2 hours if no relief. no more than 2 tabs per day 01/02/2018 01/25/2018 Inactive Ciprodex 0.3 %-0.1 % ear drops,suspension RxNorm: 396643 4 Drop(s) otic (ear) BID 01/01/2018 01/07/2018 In active Coumadin 7.5 mg tablet RxNorm: 849580 1 Tablet(s) PO QD Tu, Th, 12/29/2017 05/18/2018 In active Coumadin 5 mg tablet RxNorm: 627924 1 Tablet(s) PO Mon, Wed, Fri, Sun 12/29/2017 01/26/2018 In active cyclobenzaprine 10 m g tablet RxNorm: 096031 1 Tablet(s) PO QD as needed 12/29/2017 01/22/2018 In active clindamycin HCl 300 mg capsule RxNorm: 021116 1 Capsule(s) PO TID 12/26/2017 12/25/2017 Inactive Imitrex 50 mg tablet RxNorm: 383599 1 Tablet(s) PO at headache. repeat in 2 hours if no relief. no more than 2 tabs per day 12/26/2017 01/01/2018 Inactive clindamycin HCl 300 mg capsule RxNorm: 997658 1 Capsule(s) PO TID 12/26/2017 01/04/2018 Inactive Zithromax Z-Juan Francisco 250 mg tablet RxNorm: 178457 Tablet(s) PO take as directed 12/25/2017 12/25/2017 In active promethazine 12.5 mg tablet RxNorm: 466102 1 Tablet(s) PO Q6H 12/25/2017 01/22/2018 Inactive clindamycin HCl 300 mg capsule RxNorm: 775536 1 Capsule(s) PO TID 12/11/2017 12/17/2017 Inactive Vistaril 25 mg capsule RxNorm: 834845 1 Capsule(s) PO TID as needed for anxiet y 12/04/2017 05/18/2018 In active cholestyramine (with sugar) 4 gram oral powder RxNorm: 686526 1 Unit Dose PO QD 12/04/2017 05/18/2018 In active Coumadin 7.5 mg tablet RxNorm: 392963 1 Tablet(s) PO QD 12/04/2017 12/28/2017 Inactive Coumadin 5 mg tablet RxNorm: 387059 1 Tablet(s) PO Friday through Friday12/04/2017 12/28/2017 In active hydrocodone 10 mg-ac etaminophen 325 mg tablet RxNorm: 535618 1 Tablet(s) PO Q4-6H as needed for pain 12/01/2017 02/23/2018 Inactive hydrocodone 10 mg-ac etaminophen 325 mg tablet RxNorm: 893270 1 Tablet(s) PO Q4-6H as needed for pain 11/03/2017 11/30/2017 Inactive cyclobenzaprine 10 m g tablet RxNorm: 111421 1 Tablet(s) PO QD as needed 10/30/2017 12/28/2017 In active cholestyramine (with sugar) 4 gram oral powder RxNorm: 507748 1 Unit Dose PO QD 10/30/2017 11/28/2017 In active amoxicillin 875 mg t ablet RxNorm: 471199 1 Tablet(s) PO BID 10/08/2017 10/07/2017 Inactive amoxicillin 875 mg t ablet RxNorm: 553766 1 Tablet(s) PO BID 10/08/2017 10/17/2017 Inactive penicillin V potassi um 500 mg tablet RxNorm: 035777 1 Tablet(s) PO BID 10/06/2017 10/07/2017 In active hydrocodone 10 mg-ac etaminophen 325 mg tablet RxNorm: 669165 1 Tablet(s) PO Q4-6H as needed for pain 10/06/2017 11/02/2017 Inactive hydrocodone 10 mg-ac etaminophen 325 mg tablet RxNorm: 159878 1 Tablet(s) PO Q4-6H as needed for pain 10/06/2017 12/31/2018 Inactive Vigamox 0.5 % eye drops RxNorm: 714167 1 Drop(s) ophthalmic (eye) TID ONLY ADMI NISTER IF INFECTION 10/03/2017 10/02/2017 Inactive Vigamox 0.5 % eye drops RxNorm: 181680 1 Drop(s) ophthalmic (eye) TID ONLY ADMI NISTER IF INFECTION 10/03/2017 10/09/2017 Inactive cholestyramine (with sugar) 4 gram oral powder RxNorm: 880744 1 Unit Dose PO QD 09/23/2017 10/30/2017 In active acetazolamide 125 mg tablet RxNorm: 466010 1 Tablet(s) PO BID 09/23/2017 12/21/2017 Inactive Coumadin 5 mg tablet RxNorm: 868888 1 Tablet(s) PO QD FRIDAY THROUGH Friday09/17/2017 11/04/2017 In active mupirocin 2 % topica l ointment RxNorm: 653711 1 Application TOP TID 09/10/2017 11/04/2017 Inactive hydrocodone 10 mg-ac etaminophen 325 mg tablet RxNorm: 623075 1 Tablet(s) PO Q4-6H as needed for pain 09/08/2017 10/05/2017 Inactive Questran 4 gram powd er for susp in a packet RxNorm: 195501 MIX ONE PACKET IN 6 O UNCES OF APPLE SAUCE OR OTHER SOFT FOOD AND EAT ONCE DAILY 09/02/2017 11/04/2017 Inactive Diflucan 150 mg tablet RxNorm: 428587 1 Tablet(s) PO QW as needed 08/14/2017 01/21/2018 Inactive hydrocodone 10 mg-ac etaminophen 325 mg tablet RxNorm: 151848 1 Tablet(s) PO Q4-6H as needed for pain 08/11/2017 09/07/2017 Inactive Tamiflu 75 mg capsule RxNorm: 765644 1 Capsule(s) PO QD 08/11/2017 08/10/2017 Inactive Tamiflu 75 mg capsule RxNorm: 171089 1 Capsule(s) PO QD 08/11/2017 08/20/2017 Inactive Coumadin 5 mg tablet RxNorm: 893708 1 Tablet(s) PO QD FRIDAY THROUGH Friday07/22/2017 09/16/2017 In active Coumadin 5 mg tablet RxNorm: 045321 TAKE ONE TABLET BY MOUTH ONCE DAILY THROUGH Friday07/16/2017 07/21/2017 Inactive cyclobenzaprine 10 m g tablet RxNorm: 742600 1 Tablet(s) PO QD as needed 07/15/2017 10/30/2017 In active hydrocodone 10 mg-ac etaminophen 325 mg tablet RxNorm: 857372 1 Tablet(s) PO Q4-6H as needed for pain 07/14/2017 08/10/2017 Inactive warfarin 5 mg tablet RxNorm: 027553 1 Tablet(s) PO Fri Sat Sun-patie nt is due for PT/INR 06/18/2017 07/15/2017 Inactive Questran Light 4 gra m powder for susp in a packet RxNorm: 9040311 1 PO QD 06/18/2017 11/04/2017 In active cyclobenzaprine 10 m g tablet RxNorm: 338453 1 Tablet(s) PO QD as needed 06/18/2017 07/14/2017 In active hydrocodone 10 mg-ac etaminophen 325 mg tablet RxNorm: 217603 1 Tablet(s) PO Q4-6H as needed for pain 06/18/2017 07/13/2017 Inactive Lunesta 1 mg tablet RxNorm: 707026 1 Tablet(s) PO QHS as needed 05/27/2017 06/25/2017 Inactive Zithromax Z-Juan Francisco 250 mg tablet RxNorm: 882930 1 Tablet(s) PO Take a s directed 05/27/2017 11/04/2017 In active ProAir HFA 90 mcg/ac tuation aerosol inhaler RxNorm: 546175 2 Puff(s) INH Q4H 05/27/2017 01/19/2019 In active ProAir HFA 90 mcg/ac tuation aerosol inhaler RxNorm: 065360 2 Puff(s) INH Q4H 05/27/2017 05/26/2017 In active promethazine 6.25 mg -codeine 10 mg/5 mL syrup RxNorm: 638627 5 Milliliter(s) PO Q4 H as needed 05/27/2017 11/04/2017 Inactive Diflucan 150 mg tablet RxNorm: 628158 1 Tablet(s) PO QW as needed 05/26/2017 05/25/2017 Inactive cyclobenzaprine 10 m g tablet RxNorm: 919590 1 Tablet(s) PO QD as needed 05/20/2017 06/18/2017 In active Lunesta 2 mg tablet RxNorm: 157325 1 Tablet(s) PO QHS 05/20/2017 05/27/2017 Inactive Zithromax Z-Juan Francisco 250 mg tablet RxNorm: 326817 Tablet(s) PO As Direc liane 05/12/2017 05/19/2017 In active cyclobenzaprine 5 mg tablet RxNorm: 235005 1 Tablet(s) PO QPM 03/28/2017 05/19/2017 Inactive Vistaril 25 mg capsule RxNorm: 186018 1 Capsule(s) PO TID as needed for anxiet y 03/28/2017 09/23/2017 In active Questran 4 gram powd er for susp in a packet RxNorm: 531264 1 Unit(s) PO QD 03/06/2017 06/18/2017 In active Cipro 500 mg tablet RxNorm: 861054 1 Tablet(s) PO BID 02/27/2017 02/26/2017 Inactive Pyridium 200 mg tablet RxNorm: 9972107 1 Tablet(s) PO TID for bladder spasms 02/27/2017 03/31/2017 In active Cipro 500 mg tablet RxNorm: 585054 1 Tablet(s) PO BID 02/27/2017 03/05/2017 Inactive Levsin 0.125 mg tablet RxNorm: 4624280 1 Tablet(s) PO QID as needed for spasm 02/25/2017 11/04/2017 In active tamsulosin 0.4 mg ca psule RxNorm: 408284 1 Capsule(s) PO QPM 02/25/2017 03/26/2017 Inactive tamsulosin 0.4 mg ca psule RxNorm: 392997 1 Capsule(s) PO QPM 02/25/2017 02/24/2017 Inactive Pyridium 100 mg tablet RxNorm: 6242401 1 Tablet(s) PO TID as needed 02/21/2017 03/31/2017 In active acetazolamide 125 mg tablet RxNorm: 707843 1 Tablet(s) PO BID 02/07/2017 09/23/2017 Inactive Questran 4 gram powd er for susp in a packet RxNorm: 673095 1 Unit(s) PO QD 02/06/2017 03/06/2017 In active cyclobenzaprine 5 mg tablet RxNorm: 752262 1 Tablet(s) PO QPM 02/05/2017 03/27/2017 Inactive BuSpar 5 mg tablet RxNorm: 292102 1 Tablet(s) PO BID 02/03/2017 03/31/2017 Inactive Diflucan 150 mg tablet RxNorm: 141383 1 Tablet(s) PO QW as needed 01/15/2017 05/26/2017 Inactive Valtrex 1 gram tablet RxNorm: 775388 1 Tablet(s) PO TID 01/13/2017 01/19/2017 Inactive Vistaril 25 mg capsule RxNorm: 481232 1 Capsule(s) PO TID as needed for anxiet y 01/13/2017 03/27/2017 In active hydrocodone 10 mg-ac etaminophen 325 mg tablet RxNorm: 361873 1 Tablet(s) PO Q4-6H as needed for pain 01/13/2017 06/17/2017 Inactive Questran 4 gram powd er for susp in a packet RxNorm: 710223 1 Unit(s) PO QD 01/13/2017 09/23/2017 In active acetazolamide 125 mg tablet RxNorm: 554651 1 Tablet(s) PO BID 01/13/2017 02/06/2017 Inactive methotrexate (PF) 20 mg/0.4 mL subcutaneous auto-injector RxNorm: 1875468 Milliliter(s) SQ QW 12/26/2016 01/05/2017 Inactive Compazine 10 mg tablet RxNorm: 344044 1 Tablet(s) PO TID as needed for nausea 12/18/2016 11/04/2017 In active hydrocodone 10 mg-ac etaminophen 325 mg tablet RxNorm: 530345 1 Tablet(s) PO Q4-6H as needed for pain 12/17/2016 01/12/2017 Inactive Questran 4 gram powd er for susp in a packet RxNorm: 955648 1 Unit(s) PO QD 12/17/2016 01/13/2017 In active cyclobenzaprine 5 mg tablet RxNorm: 491276 1 Tablet(s) PO QPM 12/17/2016 02/05/2017 Inactive Questran Light 4 gra m powder for susp in a packet RxNorm: 6090449 1 PO QD 11/29/2016 06/17/2017 In active Zofran ODT 4 mg disi ntegrating tablet RxNorm: 063937 1 Tablet(s) PO Q4H as needed for nausea 11/29/2016 12/17/2016 Inactive methotrexate sodium 2.5 mg tablet RxNorm: 534261 4 Tablet(s) PO week 1 then 5 tablets po week 2 then 6 tablets weekly 11/27/2016 12/25/2016 Inactive warfarin 7.5 mg tablet RxNorm: 190266 1 Tablet(s) PO three times weekly 11/14/2016 03/31/2017 In active warfarin 7.5 mg tablet RxNorm: 256542 1 Tablet(s) PO three times weekly 11/13/2016 11/13/2016 In active Diflucan 150 mg tablet RxNorm: 567877 1 Tablet(s) PO QW as needed 11/05/2016 01/14/2017 Inactive Vistaril 25 mg capsule RxNorm: 928599 1 Capsule(s) PO TID as needed for anxiet y 11/04/2016 11/03/2016 In active Coumadin 5 mg tablet RxNorm: 745182 1 Tablet(s) PO Friday through Friday11/04/2016 06/18/2017 In active acetazolamide 125 mg tablet RxNorm: 300149 1 Tablet(s) PO BID 11/04/2016 01/13/2017 Inactive sumatriptan 100 mg t ablet RxNorm: 374199 1 Tablet(s) PO at hea dache onset. May repeat in 2 hours if headache remains 11/04/2016 11/04/2017 Inactive Vistaril 25 mg capsule RxNorm: 145736 1 Capsule(s) PO TID as needed for anxiet y 11/04/2016 01/12/2017 In active hydrocodone 10 mg-ac etaminophen 325 mg tablet RxNorm: 691570 1 Tablet(s) PO Q4-6H as needed for pain 11/04/2016 12/16/2016 Inactive Coumadin 5 mg tablet RxNorm: 289380 TAKE ONE TABLET BY MOUTH ON SUN., MON., FRI., AND FRI., AND TAKE ONE AND ONE-HALF TABLETS TUE., TH., AND 10/16/2016 10/25/2016 In active Coumadin 5 mg tablet RxNorm: 314135 1 Tablet(s) PO Friday through Friday10/15/2016 11/03/2016 In active hydrocodone 10 mg-ac etaminophen 325 mg tablet RxNorm: 169714 1 Tablet(s) PO Q4-6H as needed for pain 10/14/2016 11/03/2016 Inactive hydrocodone 10 mg-ac etaminophen 325 mg tablet RxNorm: 361336 1 Tablet(s) PO Q4-6H as needed for pain 09/20/2016 10/13/2016 Inactive warfarin 7.5 mg tablet RxNorm: 437016 1 Tablet(s) PO three times weekly 09/20/2016 11/12/2016 In active Diflucan 150 mg tablet RxNorm: 553788 1 Tablet(s) PO QW as needed 08/20/2016 11/04/2016 Inactive acetazolamide 125 mg tablet RxNorm: 021126 1 Tablet(s) PO BID 08/20/2016 11/04/2016 Inactive Diflucan 150 mg tablet RxNorm: 024456 1 Tablet(s) PO QW as needed 08/20/2016 08/19/2016 Inactive Vistaril 25 mg capsule RxNorm: 593565 Capsule(s) TAKE ONE CAPSULE BY MOUTH THR EE TIMES DAILY NEEDED FOR ANXIETY 08/19/2016 11/04/2016 Inactive hydrocodone 10 mg-ac etaminophen 325 mg tablet RxNorm: 530132 1 Tablet(s) PO Q4-6H as needed for pain 08/05/2016 09/19/2016 Inactive Diflucan 150 mg tablet RxNorm: 566438 1 Tablet(s) PO QW as needed 07/19/2016 08/19/2016 Inactive tizanidine 4 mg tablet RxNorm: 467622 1-2 Tablet(s) PO QHS as needed for muscl e spasm and sleep 06/03/2016 06/10/2016 Inactive Questran Light 4 gra m powder for susp in a packet RxNorm: 9029983 1 PO QD 05/14/2016 08/11/2016 In active Macrobid 100 mg capsule RxNorm: 318213 1 Capsule(s) PO BID 04/23/2016 05/02/2016 Inactive mupirocin 2 % topica l ointment RxNorm: 693723 Apply topically to af fected area 2-3 times daily 04/17/2016 07/07/2016 Inactive Vistaril 25 mg capsule RxNorm: 604720 TAKE ONE CAPSULE BY MOUTH THREE TIMES DA LOLI NEEDED FOR ANXIETY 04/17/2016 11/04/2016 Inactive Diflucan 150 mg tablet RxNorm: 863424 1 Tablet(s) PO QW as needed 04/16/2016 07/18/2016 Inactive cyclobenzaprine 5 mg tablet RxNorm: 922237 TAKE ONE TABLET BY MO UTH ONCE DAILY IN THE EVENING 03/25/2016 12/17/2016 Inactive Pyridium 100 mg tablet RxNorm: 6351300 1 Tablet(s) PO TID as needed 03/20/2016 03/19/2016 In active Diflucan 150 mg tablet RxNorm: 901443 1 Tablet(s) PO QW as needed 03/20/2016 04/15/2016 Inactive Pyridium 100 mg tablet RxNorm: 4888205 1 Tablet(s) PO TID as needed 03/20/2016 08/26/2016 In active Diflucan 150 mg tablet RxNorm: 615951 1 Tablet(s) PO QW as needed 03/19/2016 03/19/2016 Inactive Coumadin 7.5 mg tablet RxNorm: 270905 1 Tablet(s) PO QD 03/14/2016 05/12/2016 Inactive acetazolamide 125 mg tablet RxNorm: 767932 1 Tablet(s) PO BID 02/28/2016 08/20/2016 Inactive Coumadin 5 mg tablet RxNorm: 117020 1 TABLET(S) PO QD THREE TIMES A WEEK AND 1 1/2 TAB (7.5MG) FOUR TIMES A WEEK 02/28/2016 03/13/2016 Inactive Questran Light 4 gra m powder for susp in a packet RxNorm: 6237704 1 PO QD 02/13/2016 05/12/2016 In active Diflucan 150 mg tablet RxNorm: 834558 1 Tablet(s) PO QW as needed 01/19/2016 03/11/2016 Inactive Diflucan 150 mg tablet RxNorm: 163464 1 Tablet(s) PO QW as needed 01/18/2016 01/18/2016 Inactive promethazine 25 mg t ablet RxNorm: 635581 1 Tablet(s) PO Q4H as needed for nausea 12/05/2015 12/17/2016 In active Imitrex 100 mg tablet RxNorm: 744400 1 Tablet(s) PO at headache onset and may repeat in 2 hours if needed 12/05/2015 03/31/2017 Inactive Diflucan 150 mg tablet RxNorm: 963950 1 Tablet(s) PO QW as needed 11/24/2015 01/17/2016 Inactive Diflucan 150 mg tablet RxNorm: 693779 1 Tablet(s) PO QW as needed 11/21/2015 11/23/2015 Inactive Coumadin 5 mg tablet RxNorm: 393077 1 Tablet(s) PO QD three times a week and 1 1/2 tab (7.5mg) four times a week 11/13/2015 02/01/2016 Inactive Questran Light 4 gra m powder for susp in a packet RxNorm: 373753 1 PO QD 11/13/2015 02/10/2016 In active acetazolamide 125 mg tablet RxNorm: 402962 1 Tablet(s) PO BID 11/13/2015 02/10/2016 Inactive amoxicillin 875 mg t ablet RxNorm: 781282 1 Tablet(s) PO BID 11/09/2015 11/18/2015 Inactive Coumadin 7.5 mg tablet RxNorm: 079969 1 Tablet(s) PO on and 10/26/2015 10/25/2015 In active Coumadin 7.5 mg tablet RxNorm: 955456 1 Tablet(s) PO on and 10/26/2015 11/12/2015 In active Coumadin 5 mg tablet RxNorm: 341188 1 Tablet(s) PO Friday, Friday, Friday and Friday. 1.5 tablets Friday, and Friday. 10/26/2015 10/25/2015 Inactive Coumadin 5 mg tablet RxNorm: 101590 1 Tablet(s) PO Friday, Friday, Friday , and Friday. Take 1 1/2 on Friday, and Friday10/26/2015 11/12/2015 Inactive Coumadin 7.5 mg tablet RxNorm: 024916 1 Tablet(s) PO on and 10/26/2015 10/26/2015 In active Coumadin 5 mg tablet RxNorm: 748301 1 Tablet(s) PO Friday, Friday, Friday and Friday. 1.5 tablets Friday, and Friday. 10/26/2015 02/14/2016 Inactive Vistaril 25 mg capsule RxNorm: 719228 1 Capsule(s) PO TID as needed for anxiet y 10/10/2015 04/06/2016 In active cyclobenzaprine 5 mg tablet RxNorm: 233896 1 Tablet(s) PO QPM 10/10/2015 03/24/2016 Inactive Vistaril 25 mg capsule RxNorm: 384279 1 Capsule(s) PO TID as needed for anxiet y 10/10/2015 10/09/2015 In active cyclobenzaprine 5 mg tablet RxNorm: 056755 1 Tablet(s) PO QPM 10/10/2015 10/09/2015 Inactive Coumadin 5 mg tablet RxNorm: 016419 1 Tablet(s) PO Friday, Friday, Friday and Friday. 1.5 tablets Friday, and Friday. 10/02/2015 10/01/2015 Inactive Coumadin 5 mg tablet RxNorm: 158542 1 Tablet(s) PO Friday, Friday, Friday and Friday. 1.5 tablets Friday, and Friday. 10/02/2015 10/25/2015 Inactive amoxicillin 500 mg t ablet RxNorm: 471348 1 Tablet(s) PO TID 10/02/2015 10/11/2015 Inactive hydrocodone 10 mg-ac etaminophen 325 mg tablet RxNorm: 708661 1 Tablet(s) PO Q4-6H as needed for pain 10/02/2015 08/04/2016 Inactive Diflucan 150 mg tablet RxNorm: 052095 1 Tablet(s) PO QW as needed 10/02/2015 10/01/2015 Inactive amoxicillin 500 mg t ablet RxNorm: 923974 1 Tablet(s) PO TID 10/02/2015 10/01/2015 Inactive Diflucan 150 mg tablet RxNorm: 365123 1 Tablet(s) PO QW as needed 10/02/2015 10/09/2015 Inactive Coumadin 5 mg tablet RxNorm: 532317 1 Tablet(s) PO Mon.,Fri.,Fri., Sat. and Sun. 09/14/2015 10/01/2015 Inactive acetazolamide 125 mg tablet RxNorm: 995691 1 Tablet(s) PO BID 09/14/2015 11/12/2015 Inactive hydrocodone 10 mg-ac etaminophen 325 mg tablet RxNorm: 845824 1 Tablet(s) PO Q4-6H as needed for pain 09/01/2015 10/01/2015 Inactive Vistaril 25 mg capsule RxNorm: 460576 1 Capsule(s) PO TID as needed for anxiet y 08/24/2015 09/22/2015 In active baclofen 10 mg tablet RxNorm: 821552 1/2 Tablet(s) PO QAM and 1 tablet at bed time 07/27/2015 10/09/2015 Inactive Vistaril 25 mg capsule RxNorm: 625298 1 Capsule(s) PO BID 07/24/2015 08/22/2015 Inactive Savella 12.5 mg (5)- 25 mg(8)-50mg(42) tablets in a dose pack RxNorm: 687637 Tablet(s) PO as directed 07/10/2015 07/26/2015 Inactive hydrocodone 10 mg-ac etaminophen 325 mg tablet RxNorm: 352179 1 Tablet(s) PO Q6H as needed for pain 06/29/2015 08/10/2015 Inactive Coumadin 7.5 mg tablet RxNorm: 149215 1 Tablet(s) PO on and 06/21/2015 10/25/2015 In active Vistaril 25 mg capsule RxNorm: 406639 1 Capsule(s) PO BID 06/20/2015 07/24/2015 Inactive Cymbalta 30 mg capsu le,delayed release RxNorm: 040078 1 Capsule(s) PO QD 06/08/2015 07/09/2015 In active Coumadin 5 mg tablet RxNorm: 463857 1 Tablet(s) PO Mon.,Wed.,Fri., Sat. and Sun. 06/08/2015 07/07/2015 Inactive Coumadin 5 mg tablet RxNorm: 598522 1 Tablet(s) PO Mon.,Wed.,Fri., Sat. and Sun. 05/24/2015 06/07/2015 Inactive Coumadin 7.5 mg tablet RxNorm: 081062 1 Tablet(s) PO on and 05/24/2015 06/20/2015 In active Coumadin 7.5 mg tablet RxNorm: 018404 1 Tablet(s) PO on Friday No Start Date Active Vitamin B12 1000mcg Tablet RxNorm: 1/2 Tablet(s) PO QD No Start Date Active Bystolic 10 mg tablet RxNorm: 849217 3 Tablet(s) PO QAM No Start Date Active Vitamin D3 5,000 uni t tablet RxNorm: 418472 1 Tablet(s) PO QD No Start Date Active Bystolic 5 mg tablet RxNorm: 752943 1 Tablet(s) PO NOON No Start Date Active sumatriptan 100 mg t ablet RxNorm: 899593 1 Tablet(s) PO at hea dache onset. May repeat in 2 hours if headache remains No Start Date 11/03/2016 Inactive warfarin 7.5 mg tablet RxNorm: 326749 1 Tablet(s) PO three times weekly No Start Date 09/19/2016 Inactive ondansetron HCl 4 mg tablet RxNorm: 932407 1 Tablet(s) PO Q4H as needed for nausea No Start Date 02/23/2018 Inactive Imitrex 100 mg tablet RxNorm: 298500 1 Tablet(s) PO at headache onset and may repeat in 2 hours if needed No Start Date 12/04/2015 Inactive Vitamin B12 1000mcg Tablet RxNorm: 1/2 Tablet(s) PO on , hur, Fri and Sun and 1 tab all other days No Start Date 04/01/2018 Inactive baclofen 10 mg tablet RxNorm: 907846 1/2 Tablet(s) PO QAM and 1 tablet at bed time No Start Date 07/26/2015 Inactive tizanidine 4 mg tablet RxNorm: 345877 1-2 Tablet(s) PO QHS as needed for muscl e spasm and sleep No Start Date 06/02/2016 Inactive Flexeril 5 mg tablet RxNorm: 331035 1 Tablet(s) PO QD No Start Date 10/09/2015 Inactive methotrexate (PF) 20 mg/0.4 mL subcutaneous auto-injector RxNorm: 5027168 SQ QW No Start Date 12/25/2016 Inactive Bystolic 5 mg tablet RxNorm: 101762 1 Tablet(s) PO as needed No Start Date 03/15/2018 Inactive Questran Light 4 gra m powder for susp in a packet RxNorm: 535861 1 PO QD No Start Date 11/12/2015 Inactive Bystolic 10 mg tablet RxNorm: 373987 1 Tablet(s) PO QAM No Start Date 11/04/2017 Inactive warfarin 5 mg tablet RxNorm: 975278 1 Tablet(s) PO Fri Sun No Start Date 06/17/2017 Inactive hydrocodone 10 mg-ac etaminophen 325 mg tablet RxNorm: 592188 1 Tablet(s) PO 4-6hou rs as needed for pain No Start Date 08/31/2015 Inactive cyclobenzaprine 5 mg tablet RxNorm: 658550 1 Tablet(s) PO QPM No Start Date 12/16/2016 Inactive Lovenox 100 mg/mL carmona bcutaneous syringe RxNorm: 620022 1 Milliliter(s) SQ QD No Start Date 06/07/2015 Inactive Levsin 0.125 mg tablet RxNorm: 9073106 1 Tablet(s) PO QID as needed for spasm No Start Date 02/24/2017 Inactive Savella 12.5 mg (5)- 25 mg(8)-50mg(42) tablets in a dose pack RxNorm: 983552 Tablet(s) PO as directed No Start Date 07/09/2015 Inactive Coumadin 10 mg tablet RxNorm: 849736 1 Tablet(s) PO QD No Start Date 2015 Inactive tramadol 50 mg tablet RxNorm: 405510 1 Tablet(s) PO TID as needed for pain No Start Date 03/31/2017 Inactive BuSpar 5 mg tablet RxNorm: 618450 1 Tablet(s) PO BID No Start Date 02/02/2017 Inactive Vistaril 25 mg capsule RxNorm: 026136 1 Capsule(s) PO BID No Start Date 06/19/2015 Inactive Tessalon Perles 100 mg capsule RxNorm: 380436 1 Capsule(s) PO TID a s needed for cough No Start Date 01/19/2019 Inactive promethazine 12.5 mg tablet RxNorm: 034162 1 Tablet(s) PO Q6H as needed No Start Date 04/22/2018 Inactive Coumadin 7.5 mg tablet RxNorm: 652280 1 Tablet(s) PO Fri and Friday No Start Date 03/13/2016 Inactive Imitrex 50 mg tablet RxNorm: 373126 1 Tablet(s) PO at headache. repeat in 2 hours if no relief. no more than 2 tabs per day No Start Date 12/25/2017 Inactive acetazolamide 125 mg tablet RxNorm: 247313 1 Tablet(s) PO BID No Start Date 09/13/2015 Inactive methotrexate (PF) 12 .5 mg/0.4 mL subcutaneous auto-injector RxNorm: 1466914 1 Milliliter(s) SQ QW No Start Date 03/31/2017 Inactive Bystolic 10 mg tablet RxNorm: 201104 1 Tablet(s) PO QAM No Start Date 03/25/2018 Inactive Zithromax Z-Juan Francisco 250 mg tablet RxNorm: 128754 Tablet(s) PO As Direc liane No Start Date 05/11/2017 Inactive Bystolic 20 mg tablet RxNorm: 302952 1 Tablet(s) PO QD No Start Date 03/15/2018 Inactive Questran 4 gram powd er for susp in a packet RxNorm: 951435 1 Unit(s) PO QD No Start Date 12/16/2016 Inactive Vitamin D3 1,000 uni t tablet RxNorm: 395770 1 Tablet(s) PO QD No Start Date 04/01/2018 Inactive Coumadin 5 mg tablet RxNorm: 177538 1 Tablet(s) PO Friday through Friday No Start Date 03/13/2016 Inactive warfarin 5 mg tablet RxNorm: 836150 1 Tablet(s) PO four days per week No Start Date 04/01/2018 Inactive ProAir HFA 90 mcg/ac tuation aerosol inhaler RxNorm: 506693 2 Puff(s) INH Q4H as needed No Start Date 01/19/2019 Inactive Bystolic 5 mg tablet RxNorm: 824821 1 Tablet(s) PO QHS No Start Date 03/25/2018 Inactive Compazine 10 mg tablet RxNorm: 656383 1 Tablet(s) PO TID as needed for nausea No Start Date 12/17/2016 Inactive Pyridium 200 mg tablet RxNorm: 0123254 1 Tablet(s) PO TID for bladder spasms No Start Date 02/26/2017 Inactive hydrocodone 10 mg-ac etaminophen 325 mg tablet RxNorm: 853510 1 Tablet(s) PO as nee ded No Start Date 06/28/2015 Inactive warfarin 7.5 mg tablet RxNorm: 584560 1 Tablet(s) PO on Friday and No Start Date 04/01/2018 Inactive promethazine 25 mg t ablet RxNorm: 453251 1 Tablet(s) PO Q4H as needed for nausea No Start Date 12/04/2015 Inactive Lovenox 30 mg/0.3 mL subcutaneous syringe RxNorm: 789819 1 Milliliter(s) SQ QD No Start Date [...] 01/19/2019 COUGH ICD-10: R05 ICD-9: 786.2 01/19/2019 assisted (current) use of anticoagulants ICD-10: Z79.01 ICD-9: [...] and perineal pain ICD-10: R10 .2 ICD-9: [id number] 02/10/2017 Hematuria, unspecified ICD-10: R31.9 ICD-9: 599.70 [...] lab draw 06/21/2015 follow up 06/08/2015 Serena m [facility] follow up 05/31/2015 jay pugh has history of intestitial cystitis ~generic 05/24/2015 Esta [facility] care Results Observation Observation Code Item Item Code Result Date ANTI STREPTOLYSIN O TITER(ASO) 54945 ASO Titr 110 IU/mL 9 MYCOPLASMA ANTIBODY, IFA [id number] Mycoplas Ab IgG 1:64 01/20/2019 MYCOPLASMA ANTIBODY, IFA [id number] Mycoplas Ab IgM <1:10 01/20/2019 MYCOPLASMA ANTIBODY, IFA [id number] Mycoplasma Intp See Below 01/20/2019 LEGIONELLA 0802002 Legio adore Ab <1:128 01/20/2019 HEPATIC FUNCTION PANEL A 96210 Total Protein 6.3 g/dL 01/19/2019 HEPATIC FUNCTION PANEL A 05052 AST 16 U/L 01/19/2019 HEPATIC FUNCTION PANEL A 03508 ALK PHOS 52 U/L 01/19/2019 HEPATIC FUNCTION PANEL A 75145 Bili Total 0.2 mg/dL 01/19/2019 HEPATIC FUNCTION PANEL A 85939 ALT 20 U/L 01/19/2019 HEPATIC FUNCTION PANEL A 61244 ALBUMIN 4.3 g/dL 01/19/2019 HEPATIC FUNCTION PANEL A 88831 Bili Direct 0.1 mg/dL 01/19/2019 PT 7130226 PT 27.5 Seconds 01/19/2019 PT 5207399 INR 2.6 01/19/2019 COMPLETE BLOOD COUNT 9642555 WBC 11.1 10e9/L 01/19/2019 COMPLETE BLOOD COUNT 1111379 RBC 4.14 10e12/L 9 COMPLETE BLOOD COUNT 9127501 HEMOGLOBIN 13.9 g/dL 01/19/2019 COMPLETE BLOOD COUNT 6519572 HEMATOCRIT 40.7 % 01/19/2019 COMPLETE BLOOD COUNT 8924534 MCV 98.3 fL 01/19/2019 COMPLETE BLOOD COUNT 9199413 MCH 33.6 pg 01/19/2019 COMPLETE BLOOD COUNT 3951565 MCHC 34.2 g/dL 01/19/2019 COMPLETE BLOOD COUNT 7731779 PLATELET COUNT 334 10e9/L 01/19/2019 COMPLETE BLOOD COUNT 1405866 Mean Plt Volume 8.9 fL 01/19/2019 COMPLETE BLOOD COUNT 6850997 Neut Auto 60.2 % 01/19/2019 COMPLETE BLOOD COUNT 8969376 Lymph Auto 32.5 % 01/19/2019 COMPLETE BLOOD COUNT 3799520 [place] Auto 6.1 % 01/19/2019 COMPLETE BLOOD COUNT 0475118 RDW 12.5 % 01/19/2019 COMPLETE BLOOD COUNT 8916142 Eos Auto 1.0 % 01/19/2019 COMPLETE BLOOD COUNT 8223508 Baso Auto 0.2 % 01/19/2019 COMPLETE BLOOD COUNT 5225987 Neutrophil Abs 6.68 10e9/L 01/19/2019 COMPLETE BLOOD COUNT 6985743 Lymphocyte Abs 3.61 10e9/L 01/19/2019 COMPLETE BLOOD COUNT 1265706 Monocyte Abs 0.68 10e9/L 01/19/2019 COMPLETE BLOOD COUNT 7522397 Eosinophil Abs 0.11 10e9/L 01/19/2019 COMPLETE BLOOD COUNT 7907016 RDW-SD 43.4 fL 01/19/2019 COMPLETE BLOOD COUNT 5859648 Basophil Abs 0.02 10e9/L 01/19/2019 COMPLETE BLOOD COUNT 1375828 WBC 7.4 10e9/L 12/18/2018 COMPLETE BLOOD COUNT 4348030 RBC 4.32 10e12/L 9 COMPLETE BLOOD COUNT 3328839 HEMOGLOBIN 14.2 g/dL 12/18/2018 COMPLETE BLOOD COUNT 4614464 HEMATOCRIT 42.0 % 12/18/2018 COMPLETE BLOOD COUNT 1222564 MCV 97.2 fL 12/18/2018 COMPLETE BLOOD COUNT 7989215 MCH 32.9 pg 12/18/2018 COMPLETE BLOOD COUNT 8134255 MCHC 33.8 g/dL 12/18/2018 COMPLETE BLOOD COUNT 1782450 PLATELET COUNT 273 10e9/L 12/18/2018 COMPLETE BLOOD COUNT 5014372 Mean Plt Volume 9.4 fL 12/18/2018 COMPLETE BLOOD COUNT 9486335 Neut Auto 57.7 % 12/18/2018 COMPLETE BLOOD COUNT 6916851 Lymph Auto 34.8 % 12/18/2018 COMPLETE BLOOD COUNT 2973889 [place] Auto 6.4 % 12/18/2018 COMPLETE BLOOD COUNT 9620664 RDW 12.6 % 12/18/2018 COMPLETE BLOOD COUNT 6712615 Eos Auto 0.8 % 12/18/2018 COMPLETE BLOOD COUNT 1898343 Baso Auto 0.3 % 12/18/2018 COMPLETE BLOOD COUNT 8553729 Neutrophil Abs 4.27 10e9/L 12/18/2018 COMPLETE BLOOD COUNT 6466218 Lymphocyte Abs 2.58 10e9/L 12/18/2018 COMPLETE BLOOD COUNT 3443065 Monocyte Abs 0.47 10e9/L 12/18/2018 COMPLETE BLOOD COUNT 7388809 Eosinophil Abs 0.06 10e9/L 12/18/2018 COMPLETE BLOOD COUNT 3902746 RDW-SD 43.8 fL 12/18/2018 COMPLETE BLOOD COUNT 3794957 Basophil Abs 0.02 10e9/L 12/18/2018 GFR CALC 1087825 GFR Non Afr Amr >60 mL/min 12/18/2018 GFR CALC 5765515 GFR Afr Amr >60 mL/min 12/18/2018 COMPREHENSIVE METABOLIC 20437 AST 33 U/L 12/18/2018 COMPREHENSIVE METABOLIC 77886 ALT 60 U/L 12/18/2018 COMPREHENSIVE METABOLIC 81539 BUN 9 mg/dL 12/18/2018 COMPREHENSIVE METABOLIC 24944 ALBUMIN 4.3 g/dL 12/18/2018 COMPREHENSIVE METABOLIC 64704 CHLORIDE 104 mmol/L 12/18/2018 COMPREHENSIVE METABOLIC 74783 Bili Total 0.3 mg/dL 12/18/2018 COMPREHENSIVE METABOLIC 06455 ALK PHOS 63 U/L 12/18/2018 COMPREHENSIVE METABOLIC 53534 SODIUM 139 mmol/L 12/18/2018 COMPREHENSIVE METABOLIC 71619 CREATININE 0.55 mg/dL 12/18/2018 COMPREHENSIVE METABOLIC 29849 CALCIUM 9.0 mg/dL 12/18/2018 COMPREHENSIVE METABOLIC 40836 POTASSIUM 3.9 mmol/L 12/18/2018 COMPREHENSIVE METABOLIC 63387 Total Protein 6.4 g/dL 12/18/2018 COMPREHENSIVE METABOLIC 80846 Glucose 83 mg/dL 12/18/2018 COMPREHENSIVE METABOLIC 78828 Bicarbonate 27 mmol/L 12/18/2018 COMPREHENSIVE METABOLIC 93018 AGAP 8 mmol/L 12/18/2018 ERYTHROCYTE SEDIMENTATION RATE 75440 Sed Rate 17 mm/hr 12/04/2018 MEAN GLUC 5991674 Calc M zach Gluc 108 mg/dL 12/03/2018 VITAMIN B 12 20316 VITAM IN B12 329 pg/mL 12/03/2018 COMPREHENSIVE METABOLIC 71391 AST 18 U/L 12/03/2018 COMPREHENSIVE METABOLIC 05452 ALT 21 U/L 12/03/2018 COMPREHENSIVE METABOLIC 73104 BUN 11 mg/dL 12/03/2018 COMPREHENSIVE METABOLIC 02466 ALBUMIN 4.5 g/dL 12/03/2018 COMPREHENSIVE METABOLIC 28638 CHLORIDE 106 mmol/L 12/03/2018 COMPREHENSIVE METABOLIC 18643 Bili Total 0.4 mg/dL 12/03/2018 COMPREHENSIVE METABOLIC 63591 ALK PHOS 49 U/L 12/03/2018 COMPREHENSIVE METABOLIC 89494 SODIUM 138 mmol/L 12/03/2018 COMPREHENSIVE METABOLIC 31108 CREATININE 0.61 mg/dL 12/03/2018 COMPREHENSIVE METABOLIC 96267 CALCIUM 9.2 mg/dL 12/03/2018 COMPREHENSIVE METABOLIC 43929 POTASSIUM 3.7 mmol/L 12/03/2018 COMPREHENSIVE METABOLIC 77742 Total Protein 6.8 g/dL 12/03/2018 COMPREHENSIVE METABOLIC 77249 Glucose 94 mg/dL 12/03/2018 COMPREHENSIVE METABOLIC 61610 Bicarbonate 25 mmol/L 12/03/2018 COMPREHENSIVE METABOLIC 51953 AGAP 7 mmol/L 12/03/2018 FREE T4 78352 T4 Free 0.96 ng/dL 12/03/2018 ASSAY TRIIODOTHYRONINE (T3) 01465 T3 Total 1.02 ng/mL 12/03/2018 GFR CALC 0534072 GFR Non Afr Amr >60 mL/min 12/03/2018 GFR CALC 5375505 GFR Afr Amr >60 mL/min 12/03/2018 GLYCOSYLATED HEMOGLOBIN TEST 93771 Hgb A1c 75638-1 5.4 % 12/03/2018 VITAMIN D TOTAL (25 HYDROXY) 92556 Vitamin D 25 [place] 11.1 ng/mL 12/03/2018 IRON 86387 Iron 106 ug/dL 12/03/2018 THYROID STIMULATING HORMONE 53094 TSH 0.978 uIU/mL 9 COMPLETE BLOOD COUNT 6891737 WBC 9.4 10e9/L 12/03/2018 COMPLETE BLOOD COUNT 1086737 RBC 4.41 10e12/L 9 COMPLETE BLOOD COUNT 6388325 HEMOGLOBIN 14.5 g/dL 12/03/2018 COMPLETE BLOOD COUNT 8284203 HEMATOCRIT 43.0 % 12/03/2018 COMPLETE BLOOD COUNT 9542759 MCV 97.5 fL 12/03/2018 COMPLETE BLOOD COUNT 8189015 MCH 32.9 pg 12/03/2018 COMPLETE BLOOD COUNT 1328141 MCHC 33.7 g/dL 12/03/2018 COMPLETE BLOOD COUNT 7866767 PLATELET COUNT 336 10e9/L 12/03/2018 COMPLETE BLOOD COUNT 4001870 Mean Plt Volume 9.1 fL 12/03/2018 COMPLETE BLOOD COUNT 2595888 Neut Auto 56.4 % 12/03/2018 COMPLETE BLOOD COUNT 9308683 Lymph Auto 35.6 % 12/03/2018 COMPLETE BLOOD COUNT 7394883 [place] Auto 6.8 % 12/03/2018 COMPLETE BLOOD COUNT 0966854 RDW 12.6 % 12/03/2018 COMPLETE BLOOD COUNT 4498400 Eos Auto 1.0 % 12/03/2018 COMPLETE BLOOD COUNT 0927868 Baso Auto 0.2 % 12/03/2018 COMPLETE BLOOD COUNT 8691789 Neutrophil Abs 5.30 10e9/L 12/03/2018 COMPLETE BLOOD COUNT 4215250 Lymphocyte Abs 3.35 10e9/L 12/03/2018 COMPLETE BLOOD COUNT 3449951 Monocyte Abs 0.64 10e9/L 12/03/2018 COMPLETE BLOOD COUNT 1374332 Eosinophil Abs 0.09 10e9/L 12/03/2018 COMPLETE BLOOD COUNT 6355661 RDW-SD 44.3 fL 12/03/2018 COMPLETE BLOOD COUNT 3827875 Basophil Abs 0.02 10e9/L 12/03/2018 FERRITIN 00135 FERRITIN 87.8 ng/mL 12/03/2018 PT 4516141 PT 23.1 Seconds 11/30/2018 PT 4473402 INR 2.0 11/30/2018 ANTI STREPTOLYSIN O TITER(ASO) 51425 ASO Titr 117 IU/mL 9 COMPLETE BLOOD COUNT 8517370 WBC 10.7 10e9/L 11/11/2018 COMPLETE BLOOD COUNT 9104560 RBC 4.42 10e12/L 9 COMPLETE BLOOD COUNT 2591634 HEMOGLOBIN 14.5 g/dL 11/11/2018 COMPLETE BLOOD COUNT 5557626 HEMATOCRIT 43.1 % 11/11/2018 COMPLETE BLOOD COUNT 3242082 MCV 97.5 fL 11/11/2018 COMPLETE BLOOD COUNT 5680472 MCH 32.8 pg 11/11/2018 COMPLETE BLOOD COUNT 1707970 MCHC 33.6 g/dL 11/11/2018 COMPLETE BLOOD COUNT 6606177 PLATELET COUNT 324 10e9/L 11/11/2018 COMPLETE BLOOD COUNT 7715004 Mean Plt Volume 9.2 fL 11/11/2018 COMPLETE BLOOD COUNT 3091914 Neut Auto 62.3 % 11/11/2018 COMPLETE BLOOD COUNT 0445971 Lymph Auto 30.8 % 11/11/2018 COMPLETE BLOOD COUNT 9080392 [place] Auto 6.1 % 11/11/2018 COMPLETE BLOOD COUNT 4339266 RDW 12.7 % 11/11/2018 COMPLETE BLOOD COUNT 9373123 Eos Auto 0.7 % 11/11/2018 COMPLETE BLOOD COUNT 8905025 Baso Auto 0.1 % 11/11/2018 COMPLETE BLOOD COUNT 2407903 Neutrophil Abs 6.67 10e9/L 11/11/2018 COMPLETE BLOOD COUNT 7590560 Lymphocyte Abs 3.30 10e9/L 11/11/2018 COMPLETE BLOOD COUNT 8374265 Monocyte Abs 0.65 10e9/L 11/11/2018 COMPLETE BLOOD COUNT 5577223 Eosinophil Abs 0.07 10e9/L 11/11/2018 COMPLETE BLOOD COUNT 8400546 RDW-SD 44.3 fL 11/11/2018 COMPLETE BLOOD COUNT 0505110 Basophil Abs 0.01 10e9/L 11/11/2018 PT 1681681 PT 23.4 Seconds 10/27/2018 PT 4034909 INR 2.0 10/27/2018 COMPLETE BLOOD COUNT 0445355 WBC 8.1 10e9/L 09/25/2018 COMPLETE BLOOD COUNT 4026653 RBC 4.37 10e12/L 9 COMPLETE BLOOD COUNT 9756680 HEMOGLOBIN 14.5 g/dL 09/25/2018 COMPLETE BLOOD COUNT 9137226 HEMATOCRIT 42.1 % 09/25/2018 COMPLETE BLOOD COUNT 2997414 MCV 96.3 fL 09/25/2018 COMPLETE BLOOD COUNT 4986982 MCH 33.2 pg 09/25/2018 COMPLETE BLOOD COUNT 3450840 MCHC 34.4 g/dL 09/25/2018 COMPLETE BLOOD COUNT 4680927 PLATELET COUNT 313 10e9/L 09/25/2018 COMPLETE BLOOD COUNT 2798604 Mean Plt Volume 9.2 fL 09/25/2018 COMPLETE BLOOD COUNT 2898297 Neut Auto 57.4 % 09/25/2018 COMPLETE BLOOD COUNT 0999547 Lymph Auto 35.0 % 09/25/2018 COMPLETE BLOOD COUNT 8547243 [place] Auto 6.3 % 09/25/2018 COMPLETE BLOOD COUNT 5957057 RDW 12.6 % 09/25/2018 COMPLETE BLOOD COUNT 0823635 Eos Auto 1.1 % 09/25/2018 COMPLETE BLOOD COUNT 5053851 Baso Auto 0.2 % 09/25/2018 COMPLETE BLOOD COUNT 1755836 Neutrophil Abs 4.65 10e9/L 09/25/2018 COMPLETE BLOOD COUNT 8219752 Lymphocyte Abs 2.84 10e9/L 09/25/2018 COMPLETE BLOOD COUNT 9998361 Monocyte Abs 0.51 10e9/L 09/25/2018 COMPLETE BLOOD COUNT 3669665 Eosinophil Abs 0.09 10e9/L 09/25/2018 COMPLETE BLOOD COUNT 0251430 RDW-SD 43.0 fL 09/25/2018 COMPLETE BLOOD COUNT 8889728 Basophil Abs 0.02 10e9/L 09/25/2018 COMPREHENSIVE METABOLIC 00702 AST 15 U/L 09/25/2018 COMPREHENSIVE METABOLIC 49420 ALT 20 U/L 09/25/2018 COMPREHENSIVE METABOLIC 39531 BUN 9 mg/dL 09/25/2018 COMPREHENSIVE METABOLIC 03713 ALBUMIN 4.3 g/dL 09/25/2018 COMPREHENSIVE METABOLIC 35430 CHLORIDE 107 mmol/L 09/25/2018 COMPREHENSIVE METABOLIC 00762 Bili Total 0.4 mg/dL 09/25/2018 COMPREHENSIVE METABOLIC 51885 ALK PHOS 51 U/L 09/25/2018 COMPREHENSIVE METABOLIC 86235 SODIUM 139 mmol/L 09/25/2018 COMPREHENSIVE METABOLIC 16151 CREATININE 0.61 mg/dL 09/25/2018 COMPREHENSIVE METABOLIC 83949 CALCIUM 9.1 mg/dL 09/25/2018 COMPREHENSIVE METABOLIC 62209 POTASSIUM 3.7 mmol/L 09/25/2018 COMPREHENSIVE METABOLIC 42440 Total Protein 6.3 g/dL 09/25/2018 COMPREHENSIVE METABOLIC 90213 Glucose 92 mg/dL 09/25/2018 COMPREHENSIVE METABOLIC 63169 Bicarbonate 24 mmol/L 09/25/2018 COMPREHENSIVE METABOLIC 88233 AGAP 8 mmol/L 09/25/2018 PT 6257742 PT 25.0 Seconds 09/25/2018 PT 6237394 INR 2.2 09/25/2018 GFR CALC 7458027 GFR Non Afr Amr >60 mL/min 09/25/2018 GFR CALC 0225810 GFR Afr Amr >60 mL/min 09/25/2018 PT 7241766 PT 25.7 Seconds 05/12/2018 PT 3452623 INR 2.3 05/12/2018 PT 0617009 PT TNP:Improper Specimen 04/30/2018 PT [id number] INR TNP:Improper Specimen 04/30/2018 PT 4774937 PT 26.3 Seconds 02/05/2018 PT 8654880 INR 2.4 02/05/2018 ANTI STREPTOLYSIN O TITER(ASO) 58122 ASO Titr 118 IU/mL 8 VITAMIN B 12 42909 VITAM IN B12 302 pg/mL 12/02/2017 VITAMIN D TOTAL (25 HYDROXY) 22790 Vitamin D 25 OH 27.0 ng/mL 12/02/2017 PT 3169664 PT 17.3 Seconds 12/01/2017 PT 0803790 INR 1.4 12/01/2017 ANTI STREPTOLYSIN O TITER(ASO) 28633 ASO Titr 127 IU/mL 8 ANTI STREPTOLYSIN O TITER(ASO) 81828 ASO Titr 130 IU/mL 8 ANTINUCLEAR ANTIBODY SCREEN 97959 MAGALIE Ab Scr <1:80 10/02/2017 RA FACTOR 69795 RA FACTOR <20 IU/mL 10/02/2017 RA FACTOR 37200 RA Facto r Intp Negative 10/02/2017 VITAMIN D TOTAL (25 HYDROXY) 49244 Vitamin D 25 OH 18 ng/mL 8 IRON 20905 Iron 70 ug/dL 10/01/2017 VITAMIN B 12 69486 VITAM IN B12 377 pg/mL 10/01/2017 FREE T4 84556 T4 Free 1.31 ng/dL 10/01/2017 URIC ACID 86872 URIC ACID 3.9 mg/dL 10/01/2017 FERRITIN 36629 FERRITIN 68.0 ng/mL 10/01/2017 THYROID STIMULATING HORMONE 56553 TSH 1.401 uIU/mL 8 GLYCOSYLATED HEMOGLOBIN TEST 56598 Hgb A1c 44978-0 5.4 % 10/01/2017 FOLIC ACID 52816 Folate >24.0 ng/mL 10/01/2017 ASSAY TRIIODOTHYRONINE (T3) 00098 T3 Total 1.0 ng/mL 10/01/2017 ERYTHROCYTE SEDIMENTATION RATE 37129 Sed Rate 5 mm/hr 10/01/2017 MEAN GLUC 4686212 Calc M zach Gluc 108 mg/dL 10/01/2017 PT 5224207 PT 18.6 Seconds 08/07/2017 PT 7046898 INR 1.5 08/07/2017 COMPREHENSIVE METABOLIC 78929 AST 21 U/L 08/07/2017 COMPREHENSIVE METABOLIC 42590 ALT 37 U/L 08/07/2017 COMPREHENSIVE METABOLIC 53127 BUN 14 mg/dL 08/07/2017 COMPREHENSIVE METABOLIC 69440 ALBUMIN 4.5 g/dL 08/07/2017 COMPREHENSIVE METABOLIC 19987 CHLORIDE 104 mmol/L 08/07/2017 COMPREHENSIVE METABOLIC 98662 Bili Total 0.3 mg/dL 08/07/2017 COMPREHENSIVE METABOLIC 86619 ALK PHOS 55 U/L 08/07/2017 COMPREHENSIVE METABOLIC 10715 SODIUM 139 mmol/L 08/07/2017 COMPREHENSIVE METABOLIC 61277 CREATININE 0.77 mg/dL 08/07/2017 COMPREHENSIVE METABOLIC 39892 CALCIUM 9.2 mg/dL 08/07/2017 COMPREHENSIVE METABOLIC 74728 POTASSIUM 3.7 mmol/L 08/07/2017 COMPREHENSIVE METABOLIC 89325 Total Protein 6.5 g/dL 08/07/2017 COMPREHENSIVE METABOLIC 60507 Glucose 101 mg/dL 08/07/2017 COMPREHENSIVE METABOLIC 31859 Bicarbonate 25 mmol/L 08/07/2017 COMPREHENSIVE METABOLIC 84107 AGAP 10 mmol/L 08/07/2017 COMPLETE BLOOD COUNT 9315566 WBC 9.4 10e9/L 08/07/2017 COMPLETE BLOOD COUNT 8203408 RBC 4.38 10e12/L 8 COMPLETE BLOOD COUNT 2045587 HEMOGLOBIN 14.5 g/dL 08/07/2017 COMPLETE BLOOD COUNT 1687154 HEMATOCRIT 42.7 % 08/07/2017 COMPLETE BLOOD COUNT 9277392 MCV 97.5 fL 08/07/2017 COMPLETE BLOOD COUNT 1141227 MCH 33.1 pg 08/07/2017 COMPLETE BLOOD COUNT 6545080 MCHC 34.0 g/dL 08/07/2017 COMPLETE BLOOD COUNT 5588748 PLATELET COUNT 313 10e9/L 08/07/2017 COMPLETE BLOOD COUNT 9066102 Mean Plt Volume 8.6 fL 08/07/2017 COMPLETE BLOOD COUNT 1443858 Neut Auto 51.6 % 08/07/2017 COMPLETE BLOOD COUNT 5876481 Lymph Auto 40.0 % 08/07/2017 COMPLETE BLOOD COUNT 6946184 [place] Auto 6.8 % 08/07/2017 COMPLETE BLOOD COUNT 8994440 Eos Auto 1.4 % 08/07/2017 COMPLETE BLOOD COUNT 3035466 RDW 12.9 % 08/07/2017 COMPLETE BLOOD COUNT 5950936 Baso Auto 0.2 % 08/07/2017 COMPLETE BLOOD COUNT 9335289 Neutrophil Abs 4.85 10e9/L 08/07/2017 COMPLETE BLOOD COUNT 3049324 Lymphocyte Abs 3.76 10e9/L 08/07/2017 COMPLETE BLOOD COUNT 9524782 Monocyte Abs 0.64 10e9/L 08/07/2017 COMPLETE BLOOD COUNT 5151824 Eosinophil Abs 0.13 10e9/L 08/07/2017 COMPLETE BLOOD COUNT 0090842 RDW-SD 45.1 fL 08/07/2017 COMPLETE BLOOD COUNT 7938240 Basophil Abs 0.02 10e9/L 08/07/2017 GFR CALC 8843471 GFR Afr Amr >60 mL/min 08/07/2017 GFR CALC 0329779 GFR Non Afr Amr >60 mL/min 08/07/2017 COMPLETE BLOOD COUNT 8170855 WBC 9.2 10e9/L 07/15/2017 COMPLETE BLOOD COUNT 7109463 RBC 4.70 10e12/L 8 COMPLETE BLOOD COUNT 8318408 HEMOGLOBIN 15.4 g/dL 07/15/2017 COMPLETE BLOOD COUNT 5164148 HEMATOCRIT 46.2 % 07/15/2017 COMPLETE BLOOD COUNT 2902126 MCV 98.3 fL 07/15/2017 COMPLETE BLOOD COUNT 3178157 MCH 32.8 pg 07/15/2017 COMPLETE BLOOD COUNT 3497701 MCHC 33.3 g/dL 07/15/2017 COMPLETE BLOOD COUNT 0760830 PLATELET COUNT 348 10e9/L 07/15/2017 COMPLETE BLOOD COUNT 0496538 Mean Plt Volume 8.9 fL 07/15/2017 COMPLETE BLOOD COUNT 2894475 Neut Auto 60.6 % 07/15/2017 COMPLETE BLOOD COUNT 0997267 Lymph Auto 30.9 % 07/15/2017 COMPLETE BLOOD COUNT 4410742 [place] Auto 7.1 % 07/15/2017 COMPLETE BLOOD COUNT 4362708 Eos Auto 1.2 % 07/15/2017 COMPLETE BLOOD COUNT 1918100 RDW 13.1 % 07/15/2017 COMPLETE BLOOD COUNT 9147667 Baso Auto 0.2 % 07/15/2017 COMPLETE BLOOD COUNT 4091376 Neutrophil Abs 5.58 10e9/L 07/15/2017 COMPLETE BLOOD COUNT 5344536 Lymphocyte Abs 2.84 10e9/L 07/15/2017 COMPLETE BLOOD COUNT 1066759 Monocyte Abs 0.65 10e9/L 07/15/2017 COMPLETE BLOOD COUNT 0066112 Eosinophil Abs 0.11 10e9/L 07/15/2017 COMPLETE BLOOD COUNT 2409120 RDW-SD 46.1 fL 07/15/2017 COMPLETE BLOOD COUNT 5802748 Basophil Abs 0.02 10e9/L 07/15/2017 GFR CALC 7382499 GFR Non Afr Amr >60 mL/min 07/15/2017 GFR CALC 3821399 GFR Afr Amr >60 mL/min 07/15/2017 COMPREHENSIVE METABOLIC 69898 AST 16 U/L 07/15/2017 COMPREHENSIVE METABOLIC 43949 ALT 20 U/L 07/15/2017 COMPREHENSIVE METABOLIC 96464 BUN 13 mg/dL 07/15/2017 COMPREHENSIVE METABOLIC 45342 ALBUMIN 4.6 g/dL 07/15/2017 COMPREHENSIVE METABOLIC 80493 CHLORIDE 106 mmol/L 07/15/2017 COMPREHENSIVE METABOLIC 07870 Bili Total 0.3 mg/dL 07/15/2017 COMPREHENSIVE METABOLIC 53886 ALK PHOS 50 U/L 07/15/2017 COMPREHENSIVE METABOLIC 77985 SODIUM 137 mmol/L 07/15/2017 COMPREHENSIVE METABOLIC 32864 CREATININE 0.62 mg/dL 07/15/2017 COMPREHENSIVE METABOLIC 56466 CALCIUM 9.2 mg/dL 07/15/2017 COMPREHENSIVE METABOLIC 00153 POTASSIUM 3.8 mmol/L 07/15/2017 COMPREHENSIVE METABOLIC 47661 Total Protein 6.7 g/dL 07/15/2017 COMPREHENSIVE METABOLIC 98153 Glucose 83 mg/dL 07/15/2017 COMPREHENSIVE METABOLIC 81184 Bicarbonate 30 mmol/L 07/15/2017 COMPREHENSIVE METABOLIC 15650 AGAP 1 mmol/L 07/15/2017 THYROID STIMULATING HORMONE 52161 TSH 2.111 uIU/mL 08/27/201 7 COMPREHENSIVE METABOLIC 66373 AST 33 U/L 08/27/2016 COMPREHENSIVE METABOLIC 47189 ALT 55 U/L 08/27/2016 COMPREHENSIVE METABOLIC 52098 BUN 11 mg/dL 08/27/2016 COMPREHENSIVE METABOLIC 62471 ALBUMIN 4.6 g/dL 08/27/2016 COMPREHENSIVE METABOLIC 24459 CHLORIDE 103 mmol/L 08/27/2016 COMPREHENSIVE METABOLIC 50433 Bili Total 0.3 mg/dL 08/27/2016 COMPREHENSIVE METABOLIC 75006 ALK PHOS 60 U/L 08/27/2016 COMPREHENSIVE METABOLIC 27923 SODIUM 140 mmol/L 08/27/2016 COMPREHENSIVE METABOLIC 17591 CREATININE 0.69 mg/dL 08/27/2016 COMPREHENSIVE METABOLIC 48394 CALCIUM 9.3 mg/dL 08/27/2016 COMPREHENSIVE METABOLIC 57462 POTASSIUM 3.7 mmol/L 08/27/2016 COMPREHENSIVE METABOLIC 48161 Total Protein 6.8 g/dL 08/27/2016 COMPREHENSIVE METABOLIC 05607 Glucose 79 mg/dL 08/27/2016 COMPREHENSIVE METABOLIC 73401 Bicarbonate 25 mmol/L 08/27/2016 COMPREHENSIVE METABOLIC 19576 AGAP 12 mmol/L 08/27/2016 COMPLETE BLOOD COUNT 7533818 WBC 9.4 10e9/L 08/27/2016 COMPLETE BLOOD COUNT 7762197 RBC 4.35 10e12/L 7 COMPLETE BLOOD COUNT 5620905 HEMOGLOBIN 14.2 g/dL 08/27/2016 COMPLETE BLOOD COUNT 8217647 HEMATOCRIT 41.5 % 08/27/2016 COMPLETE BLOOD COUNT 5445328 MCV 95.4 fL 08/27/2016 COMPLETE BLOOD COUNT 7709243 MCH 32.6 pg 08/27/2016 COMPLETE BLOOD COUNT 9184064 MCHC 34.2 g/dL 08/27/2016 COMPLETE BLOOD COUNT 4824488 PLATELET COUNT 289 10e9/L 08/27/2016 COMPLETE BLOOD COUNT 1376554 Mean Plt Volume 9.8 fL 08/27/2016 COMPLETE BLOOD COUNT 9614977 Neut Auto 47.7 % 08/27/2016 COMPLETE BLOOD COUNT 6287957 Lymph Auto 44.2 % 08/27/2016 COMPLETE BLOOD COUNT 9118007 [place] Auto 6.6 % 08/27/2016 COMPLETE BLOOD COUNT 4010188 RDW 12.9 % 08/27/2016 COMPLETE BLOOD COUNT 7552900 Eos Auto 1.4 % 08/27/2016 COMPLETE BLOOD COUNT 9156300 Baso Auto 0.1 % 08/27/2016 COMPLETE BLOOD COUNT 9064607 Neutrophil Abs 4.48 10e9/L 08/27/2016 COMPLETE BLOOD COUNT 4443381 Lymphocyte Abs 4.15 10e9/L 08/27/2016 COMPLETE BLOOD COUNT 2442572 Monocyte Abs 0.62 10e9/L 08/27/2016 COMPLETE BLOOD COUNT 8387995 Eosinophil Abs 0.13 10e9/L 08/27/2016 COMPLETE BLOOD COUNT 8108687 RDW-SD 43.9 fL 08/27/2016 COMPLETE BLOOD COUNT 1008153 Basophil Abs 0.01 10e9/L 08/27/2016 PT 3152591 PT 15.0 Seconds 08/27/2016 PT 7189342 INR 1.2 08/27/2016 GFR CALC 1200719 GFR Afr Amr >60 mL/min 08/27/2016 GFR CALC 4674387 GFR Non Afr Amr >60 mL/min 08/27/2016 GFR CALC 1137301 GFR Afr Amr >60 mL/min 05/24/2016 GFR CALC 5817244 GFR Non Afr Amr >60 mL/min 05/24/2016 COMPREHENSIVE METABOLIC 45788 AST 19 U/L 05/24/2016 COMPREHENSIVE METABOLIC 83735 ALT 23 U/L 05/24/2016 COMPREHENSIVE METABOLIC 48282 BUN 12 mg/dL 05/24/2016 COMPREHENSIVE METABOLIC 91057 ALBUMIN 4.1 g/dL 05/24/2016 COMPREHENSIVE METABOLIC 66816 CHLORIDE 105 mmol/L 05/24/2016 COMPREHENSIVE METABOLIC 84014 Bili Total 0.4 mg/dL 05/24/2016 COMPREHENSIVE METABOLIC 75527 ALK PHOS 52 U/L 05/24/2016 COMPREHENSIVE METABOLIC 19180 SODIUM 136 mmol/L 05/24/2016 COMPREHENSIVE METABOLIC 17420 CREATININE 0.61 mg/dL 05/24/2016 COMPREHENSIVE METABOLIC 77789 CALCIUM 8.8 mg/dL 05/24/2016 COMPREHENSIVE METABOLIC 38984 POTASSIUM 3.8 mmol/L 05/24/2016 COMPREHENSIVE METABOLIC 31321 Total Protein 6.2 g/dL 05/24/2016 COMPREHENSIVE METABOLIC 66710 Glucose 95 mg/dL 05/24/2016 COMPREHENSIVE METABOLIC 58861 Bicarbonate 19 mmol/L 05/24/2016 COMPREHENSIVE METABOLIC 00460 AGAP 12 mmol/L 05/24/2016 PT 3116348 PT 25.7 Seconds 05/24/2016 PT 7877576 INR 2.4 05/24/2016 PT 4049665 PT 22.2 Seconds 04/11/2016 PT 0238063 INR 2.0 04/11/2016 PT 6197134 PT 16.5 Seconds 03/13/2016 PT 6080426 INR 1.4 03/13/2016 THYROID STIMULATING HORMONE 34382 TSH 1.151 uIU/mL 6 COMPLETE BLOOD COUNT 6575572 WBC 10.0 10e9/L 03/12/2016 COMPLETE BLOOD COUNT 8093266 RBC 4.08 10e12/L 6 COMPLETE BLOOD COUNT 2346212 HEMOGLOBIN 13.5 g/dL 03/12/2016 COMPLETE BLOOD COUNT 9911073 HEMATOCRIT 38.8 % 03/12/2016 COMPLETE BLOOD COUNT 8538175 MCV 95.1 fL 03/12/2016 COMPLETE BLOOD COUNT 5369592 MCH 33.1 pg 03/12/2016 COMPLETE BLOOD COUNT 6807541 MCHC 34.8 g/dL 03/12/2016 COMPLETE BLOOD COUNT 6428717 PLATELET COUNT 282 10e9/L 03/12/2016 COMPLETE BLOOD COUNT 9264754 Mean Plt Volume 9.6 fL 03/12/2016 COMPLETE BLOOD COUNT 3912454 Neut Auto 53.5 % 03/12/2016 COMPLETE BLOOD COUNT 9561919 Lymph Auto 39.0 % 03/12/2016 COMPLETE BLOOD COUNT 1053844 [place] Auto 5.9 % 03/12/2016 COMPLETE BLOOD COUNT 6006154 RDW 12.6 % 03/12/2016 COMPLETE BLOOD COUNT 4372881 Eos Auto 1.4 % 03/12/2016 COMPLETE BLOOD COUNT 6627771 Baso Auto 0.2 % 03/12/2016 COMPLETE BLOOD COUNT 9512474 Neutrophil Abs 5.35 10e9/L 03/12/2016 COMPLETE BLOOD COUNT 0630853 Lymphocyte Abs 3.90 10e9/L 03/12/2016 COMPLETE BLOOD COUNT 4640168 Monocyte Abs 0.59 10e9/L 03/12/2016 COMPLETE BLOOD COUNT 7617178 Eosinophil Abs 0.14 10e9/L 03/12/2016 COMPLETE BLOOD COUNT 4593950 Basophil Abs 0.02 10e9/L 03/12/2016 COMPLETE BLOOD COUNT 6203329 RDW-SD 42.7 fL 03/12/2016 COMPREHENSIVE METABOLIC 44922 AST 13 U/L 03/12/2016 COMPREHENSIVE METABOLIC 33346 ALT 11 U/L 03/12/2016 COMPREHENSIVE METABOLIC 52360 BUN 11 mg/dL 03/12/2016 COMPREHENSIVE METABOLIC 36886 ALBUMIN 4.1 g/dL 03/12/2016 COMPREHENSIVE METABOLIC 38414 CHLORIDE 107 mmol/L 03/12/2016 COMPREHENSIVE METABOLIC 96043 Bili Total 0.3 mg/dL 03/12/2016 COMPREHENSIVE METABOLIC 30050 ALK PHOS 41 U/L 03/12/2016 COMPREHENSIVE METABOLIC 86316 SODIUM 137 mmol/L 03/12/2016 COMPREHENSIVE METABOLIC 99128 CREATININE 0.62 mg/dL 03/12/2016 COMPREHENSIVE METABOLIC 77519 CALCIUM 9.0 mg/dL 03/12/2016 COMPREHENSIVE METABOLIC 58557 POTASSIUM 3.8 mmol/L 03/12/2016 COMPREHENSIVE METABOLIC 18516 Total Protein 6.1 g/dL 03/12/2016 COMPREHENSIVE METABOLIC 33468 Glucose 95 mg/dL 03/12/2016 COMPREHENSIVE METABOLIC 47244 Bicarbonate 23 mmol/L 03/12/2016 COMPREHENSIVE METABOLIC 80583 AGAP 7 mmol/L 03/12/2016 GFR CALC 9731369 GFR Non Afr Amr >60 mL/min 03/12/2016 GFR CALC 4024786 GFR Afr Amr >60 mL/min 03/12/2016 PT 3749540 PT 14.4 Seconds 02/12/2016 PT 1848941 INR 1.2 02/12/2016 PT 3004873 PT 26.1 Seconds 02/01/2016 PT 3999915 INR 2.4 02/01/2016 EB VIRUS VCA G/M + EB[place] + [place] [address]|8 6665 x 2|16748 EBV VCA Ab IgG 3.70 11/13/2015 EB VIRUS VCA G/M + EB[place] + [place] [address]|8 6665 x 2|68602 EBV VCA Ab IgM 0.47 11/13/2015 EB [place] VCA G/M + [place] + [place] [address]|8 6665 x 2|89884 EBV Nuclear Ab 2.24 11/13/2015 EB VIR[place] VCA G/M + [place] + [place] [address]|8 6665 x 2|60339 EBV Early Ab 1.37 11/13/2015 PT 9887948 PT 18.9 Seconds 11/10/2015 PT 9592389 INR 1.6 11/10/2015 PT 6078739 PT 16.8 Seconds 09/29/2015 PT 0616614 INR 1.4 09/29/2015 COMPLETE BLOOD COUNT 1552240 WBC 9.6 10e9/L 09/29/2015 COMPLETE BLOOD COUNT 6552889 RBC 4.51 10e12/L 6 COMPLETE BLOOD COUNT 4464984 HEMOGLOBIN 14.8 g/dL 09/29/2015 COMPLETE BLOOD COUNT 5358128 HEMATOCRIT 43.3 % 09/29/2015 COMPLETE BLOOD COUNT 3260102 MCV 96.0 fL 09/29/2015 COMPLETE BLOOD COUNT 3343752 MCH 32.8 pg 09/29/2015 COMPLETE BLOOD COUNT 5708218 MCHC 34.2 g/dL 09/29/2015 COMPLETE BLOOD COUNT 1103867 PLATELET COUNT 310 10e9/L 09/29/2015 COMPLETE BLOOD COUNT 1541780 Mean Plt Volume 9.7 fL 09/29/2015 COMPLETE BLOOD COUNT 3811504 Neutrophil 60.3 % 09/29/2015 COMPLETE BLOOD COUNT 1993215 Lymph Auto % 32.4 % 09/29/2015 COMPLETE BLOOD COUNT 6756560 Monocyte Auto % 6.5 % 09/29/2015 COMPLETE BLOOD COUNT 3617831 Eosinophil 0.7 % 09/29/2015 COMPLETE BLOOD COUNT 5516355 RDW 12.8 % 09/29/2015 COMPLETE BLOOD COUNT 7245352 Basophil 0.1 % 09/29/2015 COMPLETE BLOOD COUNT 6812729 Neutrophil Abs 5.79 10e9/L 09/29/2015 COMPLETE BLOOD COUNT 4298003 Lymphoctye Abs 3.11 10e9/L 09/29/2015 COMPLETE BLOOD COUNT 9864239 Monocyte Abs 0.62 10e9/L 09/29/2015 COMPLETE BLOOD COUNT 3829932 Eosinophil Abs 0.07 10e9/L 09/29/2015 COMPLETE BLOOD COUNT 5967398 RDW-SD 43.6 fL 09/29/2015 COMPLETE BLOOD COUNT 2033276 Basophil Abs 0.01 10e9/L 09/29/2015 IRON 38445 Iron 86 ug/dL 09/29/2015 COMPLETE BLOOD COUNT 3719331 WBC 9.6 10e9/L 09/29/2015 COMPLETE BLOOD COUNT 5017739 RBC 4.51 10e12/L 6 COMPLETE BLOOD COUNT 5142318 HEMOGLOBIN 14.8 g/dL 09/29/2015 COMPLETE BLOOD COUNT 8553265 HEMATOCRIT 43.3 % 09/29/2015 COMPLETE BLOOD COUNT 4802056 MCV 96.0 fL 09/29/2015 COMPLETE BLOOD COUNT 5061279 MCH 32.8 pg 09/29/2015 COMPLETE BLOOD COUNT 8370869 MCHC 34.2 g/dL 09/29/2015 COMPLETE BLOOD COUNT 7445224 PLATELET COUNT 310 10e9/L 09/29/2015 COMPLETE BLOOD COUNT 5292920 Mean Plt Volume 9.7 fL 09/29/2015 COMPLETE BLOOD COUNT 1400921 Neutrophil 60.3 % 09/29/2015 COMPLETE BLOOD COUNT 1450134 Lymph Auto % 32.4 % 09/29/2015 COMPLETE BLOOD COUNT 8505083 Monocyte Auto % 6.5 % 09/29/2015 COMPLETE BLOOD COUNT 4025831 RDW 12.8 % 09/29/2015 COMPLETE BLOOD COUNT 1448458 Eosinophil 0.7 % 09/29/2015 COMPLETE BLOOD COUNT 5370414 Basophil 0.1 % 09/29/2015 COMPLETE BLOOD COUNT 6308887 Neutrophil Abs 5.79 10e9/L 09/29/2015 COMPLETE BLOOD COUNT 3509742 Lymphoctye Abs 3.11 10e9/L 09/29/2015 COMPLETE BLOOD COUNT 0113747 Monocyte Abs 0.62 10e9/L 09/29/2015 COMPLETE BLOOD COUNT 6759371 Eosinophil Abs 0.07 10e9/L 09/29/2015 COMPLETE BLOOD COUNT 5995520 RDW-SD 43.6 fL 09/29/2015 COMPLETE BLOOD COUNT 7028828 Basophil Abs 0.01 10e9/L 09/29/2015 PT 3370742 PT 16.8 Seconds 09/29/2015 PT 2358364 INR 1.4 09/29/2015 IRON 02175 Iron 86 ug/dL 09/29/2015 PT [place] 73584 PRO T PAULIE 19.4 SEC 07/27/2015 PT [facility] 09987 INR M CMC 1.7 07/27/2015 PT [facility] 10926 PRO T PAULIE 21.4 SEC 06/21/2015 PT [facility] 40752 INR M CMC 1.9 06/21/2015 PT [facility] 26859 PRO T PAULIE 24.5 SEC 05/24/2015 PT [facility] 68865 INR M CMC 2.3 05/24/2015 Review of [...] - General Neurologic mental status Overall: alert 05/20/201 7 None Full Exam - General Neurologic [...] - General Neurologic mental status Overall: alert 09/20/201 6 None Full Exam - General Neurologic [...] Procedures Procedure Codes Date ROUTINE VENIPUNCTURE CPT-4: 70424 01/19/2019 PROTHROMBIN TIME CPT-4: 11000 01/19/2019 COMPLETE CBC W/AUTO DIFF WBC CPT-4: 48318 01/19/2019 ANTISTREPTOLYSIN O T ITER CPT-4: 53165 01/19/2019 HEPATIC FUNCTION PANEL CPT-4: 63596 01/19/2019 MYCOPLASMA ANTIBODY, IFA CPT-4: 46810J4 01/19/2019 RESPIRATORY CULTURE & STAIN CPT-4: 79521 01/19/2019 STREP A ASSAY W/OPTIC CPT-4: 32759 01/19/2019 THER/PROPH/DIAG INJ SC/IM CPT-4: 37042 01/04/2019 TRIAMCINOLONE ACET I NJ NOS CPT-4: J3301 01/04/2019 ROUTINE VENIPUNCTURE CPT-4: 13194 12/18/2018 COMPLETE CBC W/AUTO DIFF WBC CPT-4: 01924 12/18/2018 COMPREHEN METABOLIC PANEL CPT-4: 58503 12/18/2018 HYDRATION IV INFUSIO N INIT CPT-4: 05301 12/16/2018 STREP A ASSAY W/OPTIC CPT-4: 48420 12/02/2018 ROUTINE VENIPUNCTURE CPT-4: 56508 11/30/2018 PT CPT-4: 3188088 11/30/2018 CEFTRIAXONE SODIUM I NJECTION CPT-4: J0696 11/30/2018 THER/PROPH/DIAG INJ SC/IM CPT-4: 07216 11/30/2018 URINE CULTURE/ COLON Y COUNT CPT-4: 10593 11/20/2018 URINALYSIS NONAUTO W /O SCOPE CPT-4: 05253 11/20/2018 CEFTRIAXONE SODIUM I NJECTION CPT-4: J0696 11/12/2018 THER/PROPH/DIAG INJ SC/IM CPT-4: 99595 11/12/2018 STREP A ASSAY W/OPTIC CPT-4: 23114 11/11/2018 CEFTRIAXONE SODIUM I NJECTION CPT-4: J0696 11/11/2018 THER/PROPH/DIAG INJ SC/IM CPT-4: 11249 11/11/2018 ROUTINE VENIPUNCTURE CPT-4: 62380 11/11/2018 ANTISTREPTOLYSIN O T ITER CPT-4: 71194 11/11/2018 COMPLETE CBC W/AUTO DIFF WBC CPT-4: 53374 11/11/2018 ROUTINE VENIPUNCTURE CPT-4: 56837 10/27/2018 PT CPT-4: 5920223 10/27/2018 THER/PROPH/DIAG INJ SC/IM CPT-4: 26248 10/09/2018 TRIAMCINOLONE ACET I NJ NOS CPT-4: J3301 10/09/2018 CEFTRIAXONE SODIUM I NJECTION CPT-4: J0696 10/08/2018 THER/PROPH/DIAG INJ SC/IM CPT-4: 16742 10/08/2018 CEFTRIAXONE SODIUM I NJECTION CPT-4: J0696 10/07/2018 THER/PROPH/DIAG INJ SC/IM CPT-4: 11287 10/07/2018 ROUTINE VENIPUNCTURE CPT-4: 71511 09/25/2018 COMPREHEN METABOLIC PANEL CPT-4: 70582 09/25/2018 COMPLETE CBC W/AUTO DIFF WBC CPT-4: 66687 09/25/2018 PT CPT-4: 7432409 09/25/2018 URINE CULTURE/ COLON Y COUNT CPT-4: 62082 09/10/2018 URINALYSIS NONAUTO W /O SCOPE CPT-4: 59400 09/10/2018 CEFTRIAXONE SODIUM I NJECTION CPT-4: J0696 09/08/2018 THER/PROPH/DIAG INJ SC/IM CPT-4: 30931 09/08/2018 ROUTINE VENIPUNCTURE CPT-4: 84002 08/14/2018 PT CPT-4: 9945873 08/14/2018 CEFTRIAXONE SODIUM I NJECTION CPT-4: J0696 07/02/2018 THER/PROPH/DIAG INJ SC/IM CPT-4: 63591 07/02/2018 THER/PROPH/DIAG INJ SC/IM CPT-4: 88369 07/02/2018 TRIAMCINOLONE ACET I NJ NOS CPT-4: J3301 07/02/2018 ROUTINE VENIPUNCTURE CPT-4: 65569 06/22/2018 ANTISTREPTOLYSIN O T ITER CPT-4: 12131 06/22/2018 ROUTINE VENIPUNCTURE CPT-4: 10255 06/17/2018 PROTHROMBIN TIME CPT-4: 30510 06/17/2018 URINE CULTURE/ COLON Y COUNT CPT-4: 98050 06/17/2018 CEFTRIAXONE SODIUM I NJECTION CPT-4: J0696 05/12/2018 THER/PROPH/DIAG INJ SC/IM CPT-4: 42668 05/12/2018 PROTHROMBIN TIME CPT-4: 17536 05/11/2018 CEFTRIAXONE SODIUM I NJECTION CPT-4: J0696 05/11/2018 THER/PROPH/DIAG INJ SC/IM CPT-4: 80111 05/11/2018 ROUTINE VENIPUNCTURE CPT-4: 53759 04/30/2018 PROTHROMBIN TIME CPT-4: 41199 04/30/2018 THER/PROPH/DIAG INJ SC/IM CPT-4: 82468 04/02/2018 TRIAMCINOLONE ACET I NJ NOS CPT-4: J3301 04/02/2018 IIV4 VACCINE 3 YRS+ IM AND UP CPT-4: 24200 03/24/2018 IMMUNIZATION ADMIN CPT- 4: 00161 03/24/2018 ROUTINE VENIPUNCTURE CPT-4: 36192 03/24/2018 PT CPT-4: 1523771 03/24/2018 PROTHROMBIN TIME CPT-4: 25356 02/24/2018 ROUTINE VENIPUNCTURE CPT-4: 18257 02/24/2018 ROUTINE VENIPUNCTURE CPT-4: 46556 02/05/2018 PROTHROMBIN TIME CPT-4: 10139 02/05/2018 URINE CULTURE/ COLON Y COUNT CPT-4: 96554 02/05/2018 CEFTRIAXONE SODIUM I NJECTION CPT-4: J0696 01/29/2018 THER/PROPH/DIAG INJ SC/IM CPT-4: 23604 01/29/2018 CEFTRIAXONE SODIUM I NJECTION CPT-4: J0696 01/28/2018 THER/PROPH/DIAG INJ SC/IM CPT-4: 67420 01/28/2018 URINALYSIS NONAUTO W /O SCOPE CPT-4: 11770 01/26/2018 URINE CULTURE/ COLON Y COUNT CPT-4: 56974 01/26/2018 ROUTINE VENIPUNCTURE CPT-4: 24759 01/01/2018 PROTHROMBIN TIME CPT-4: 20702 01/01/2018 THER/PROPH/DIAG INJ SC/IM CPT-4: 93987 12/25/2017 TRIAMCINOLONE ACET I NJ NOS CPT-4: J3301 12/25/2017 DEXAMETHASONE SODIUM PHOS CPT-4: J1100 12/25/2017 STREP A ASSAY W/OPTIC CPT-4: 91906 12/11/2017 CEFTRIAXONE SODIUM I NJECTION CPT-4: J0696 12/11/2017 THER/PROPH/DIAG INJ SC/IM CPT-4: 59458 12/11/2017 ROUTINE VENIPUNCTURE CPT-4: 85910 12/01/2017 ANTISTREPTOLYSIN O T ITER CPT-4: 05206 12/01/2017 PROTHROMBIN TIME CPT-4: 74900 12/01/2017 VITAMIN D TOTAL (25 HYDROXY) CPT-4: 44694 12/01/2017 VITAMIN B-12 CPT-4: 94443 12/01/2017 SPECIMEN HANDLING OF FICE-LAB CPT-4: 87554 11/05/2017 ROUTINE VENIPUNCTURE CPT-4: 33289 10/14/2017 ANTISTREPTOLYSIN O T ITER CPT-4: 34558 10/14/2017 ROUTINE VENIPUNCTURE CPT-4: 23409 10/06/2017 PROTHROMBIN TIME CPT-4: 19446 10/06/2017 THER/PROPH/DIAG INJ SC/IM CPT-4: 37856 10/06/2017 TRIAMCINOLONE ACET I NJ NOS CPT-4: J3301 10/06/2017 ROUTINE VENIPUNCTURE CPT-4: 44428 10/01/2017 VITAMIN B-12 CPT-4: 11300 10/01/2017 FOLIC ACID CPT-4: 59050 10/01/2017 ASSAY THYROID STIM H ORMONE CPT-4: 46138 10/01/2017 ASSAY OF FREE THYROXINE CPT-4: 33506 10/01/2017 ASSAY TRIIODOTHYRONI NE (T3) CPT-4: 43773 10/01/2017 ASSAY OF BLOOD/URIC ACID CPT-4: 29922 10/01/2017 RHEUMATOID FACTOR QUANT CPT-4: 62084 10/01/2017 RBC SED RATE AUTOMATED CPT-4: 40588 10/01/2017 ANTISTREPTOLYSIN O T ITER CPT-4: 26062 10/01/2017 ASSAY OF IRON CPT-4: 96822 10/01/2017 ASSAY OF FERRITIN CPT-4: 93779 10/01/2017 ANTINUCLEAR ANTIBODIES CPT-4: 54108 10/01/2017 A1C HPLC CPT-4: 44267 10/01/2017 VITAMIN D TOTAL (25 HYDROXY) CPT-4: 32810 10/01/2017 THER/PROPH/DIAG INJ SC/IM CPT-4: 51612 09/05/2017 TRIAMCINOLONE ACET I NJ NOS CPT-4: J3301 09/05/2017 URINALYSIS NONAUTO W /O SCOPE CPT-4: 08869 09/05/2017 URINE CULTURE/ COLON Y COUNT CPT-4: 73809 09/05/2017 ROUTINE VENIPUNCTURE CPT-4: 51808 09/04/2017 PROTHROMBIN TIME CPT-4: 33872 09/04/2017 ROUTINE VENIPUNCTURE CPT-4: 02476 08/07/2017 COMPLETE CBC W/AUTO DIFF WBC CPT-4: 20354 08/07/2017 COMPREHEN METABOLIC PANEL CPT-4: 30226 08/07/2017 PROTHROMBIN TIME CPT-4: 06075 08/07/2017 INFLUENZA ASSAY W/OPTIC CPT-4: 77601 07/15/2017 ROUTINE VENIPUNCTURE CPT-4: 75984 07/15/2017 COMPREHEN METABOLIC PANEL CPT-4: 52028 07/15/2017 COMPLETE CBC W/AUTO DIFF WBC CPT-4: 76006 07/15/2017 CEFTRIAXONE SODIUM I NJECTION CPT-4: J0696 07/04/2017 THER/PROPH/DIAG INJ SC/IM CPT-4: 23857 07/04/2017 THER/PROPH/DIAG INJ SC/IM CPT-4: 81916 07/04/2017 TRIAMCINOLONE ACET I NJ NOS CPT-4: J3301 07/04/2017 CEFTRIAXONE SODIUM I NJECTION CPT-4: J0696 07/02/2017 THER/PROPH/DIAG INJ SC/IM CPT-4: 01251 07/02/2017 CEFTRIAXONE SODIUM I NJECTION CPT-4: J0696 07/01/2017 THER/PROPH/DIAG INJ SC/IM CPT-4: 31289 07/01/2017 ROUTINE VENIPUNCTURE CPT-4: 98317 06/19/2017 PROTHROMBIN TIME CPT-4: 62536 06/19/2017 THER/PROPH/DIAG INJ SC/IM CPT-4: 42786 04/01/2017 TRIAMCINOLONE ACET I NJ NOS CPT-4: J3301 04/01/2017 ROUTINE VENIPUNCTURE CPT-4: 60852 02/10/2017 PROTHROMBIN TIME CPT-4: 99973 02/10/2017 URINALYSIS NONAUTO W /O SCOPE CPT-4: 00160 02/10/2017 URINE CULTURE/ COLON Y COUNT CPT-4: 45475 02/10/2017 ROUTINE VENIPUNCTURE CPT-4: 24227 02/05/2017 PROTHROMBIN TIME CPT-4: 17888 02/05/2017 THROAT CULTURE CPT-4: 42045 02/03/2017 STREP A ASSAY W/OPTIC CPT-4: 12415 01/13/2017 ROUTINE VENIPUNCTURE CPT-4: 83006 12/18/2016 PROTHROMBIN TIME CPT-4: 32008 12/18/2016 URINE CULTURE/ COLON Y COUNT CPT-4: 72930 08/27/2016 ASSAY THYROID STIM H ORMONE CPT-4: 76307 08/27/2016 COMPREHEN METABOLIC PANEL CPT-4: 38600 08/27/2016 COMPLETE CBC W/AUTO DIFF WBC CPT-4: 37925 08/27/2016 PROTHROMBIN TIME CPT-4: 23465 08/27/2016 ROUTINE VENIPUNCTURE CPT-4: 87338 08/27/2016 ROUTINE VENIPUNCTURE CPT-4: 32148 05/24/2016 COMPREHEN METABOLIC PANEL CPT-4: 68060 05/24/2016 PROTHROMBIN TIME CPT-4: 72097 05/24/2016 URINALYSIS NONAUTO W /O SCOPE CPT-4: 60718 04/23/2016 URINE CULTURE/ COLON Y COUNT CPT-4: 83510 04/23/2016 PRESCRIP TRANSMIT A ERX SY CPT-4: G8553 04/23/2016 AEROBIC WOUND CULTUR E & STN CPT-4: 76650 04/17/2016 ROUTINE VENIPUNCTURE CPT-4: 92709 04/11/2016 PROTHROMBIN TIME CPT-4: 71955 04/11/2016 ROUTINE VENIPUNCTURE CPT-4: 95011 03/12/2016 COMPLETE CBC W/AUTO DIFF WBC CPT-4: 34101 03/12/2016 COMPREHEN METABOLIC PANEL CPT-4: 52368 03/12/2016 ASSAY THYROID STIM H ORMONE CPT-4: 47876 03/12/2016 PROTHROMBIN TIME CPT-4: 97337 03/12/2016 ROUTINE VENIPUNCTURE CPT-4: 95193 02/12/2016 PROTHROMBIN TIME CPT-4: 80446 02/12/2016 ROUTINE VENIPUNCTURE CPT-4: 81079 02/01/2016 PROTHROMBIN TIME CPT-4: 41344 02/01/2016 ROUTINE VENIPUNCTURE CPT-4: 41021 01/22/2016 PROTHROMBIN TIME CPT-4: 90632 01/22/2016 ROUTINE VENIPUNCTURE CPT-4: 74502 11/10/2015 PROTHROMBIN TIME CPT-4: 94171 11/10/2015 CEFTRIAXONE SODIUM I NJECTION CPT-4: J0696 11/10/2015 THER/PROPH/DIAG INJ SC/IM CPT-4: 72665 11/10/2015 EB VIRUS VCA G/M + E BNA + EA CPT-4: 58620|64766 x 2|98764 016 THROAT CULTURE CPT-4: 79902 11/09/2015 STREP A ASSAY W/OPTIC CPT-4: 31954 11/09/2015 STREP A ASSAY W/OPTIC CPT-4: 25389 10/02/2015 ROUTINE VENIPUNCTURE CPT-4: 66128 09/29/2015 COMPLETE CBC W/AUTO DIFF WBC CPT-4: 34212 09/29/2015 ASSAY OF IRON CPT-4: 85388 09/29/2015 PROTHROMBIN TIME CPT-4: 96472 09/29/2015 ROUTINE VENIPUNCTURE CPT-4: 72083 07/27/2015 PROTHROMBIN TIME CPT-4: 61497 07/27/2015 URINALYSIS NONAUTO W /O SCOPE CPT-4: 65201 06/30/2015 URINE CULTURE/ COLON Y COUNT CPT-4: 73532 06/30/2015 ROUTINE VENIPUNCTURE CPT-4: 76871 06/21/2015 PROTHROMBIN TIME CPT-4: 79560 06/21/2015 URINE CULTURE/ COLON Y COUNT CPT-4: 38737 05/31/2015 ROUTINE VENIPUNCTURE CPT-4: 12886 05/24/2015 PROTHROMBIN TIME CPT-4: 06863 05/24/2015 URINALYSIS NONAUTO W /O SCOPE CPT-4: 92720 05/24/2015 Vital Signs Date Vital 01/19/2019 Blood [...] 1: 122/70 Code: 8480-6 BMI: 32.2 Code: 31694-7 Heart Rate 1: 88 bpm Height: 5'3" Respiratory Rate: 20 bpm SpO2: 96% Temperature: 36.8 (C ) / 98.2 (F) Weight: 182 lbs 07/23/2018 Blood Pressure 1: 132/80 Code: 8480-6 Heart Rate 1: 84 bpm Respiratory Rate: 20 bpm SpO2: 96% Temperature: 36.6 (C ) / 97.8 (F) Weight: 187 lbs 07/08/2018 Blood Pressure 1: 122/70 Code: 8480-6 BMI: 32.2 Code: 00241-2 Heart Rate 1: 88 bpm Height: 5'3" Respiratory Rate: 20 bpm Temperature: 36.6 (C ) / 97.8 (F) Weight: 182 lbs 07/02/2018 Blood Pressure 1: 124/68 Code: 8480-6 BMI: 32.8 Code: 24841-7 Heart Rate 1: 84 bpm Height: 5'3" Respiratory Rate: 20 bpm SpO2: 98% Temperature: 36.3 (C ) / 97.3 (F) Weight: 185 lbs 06/02/2018 Blood Pressure 1: 132/90 Code: 8480-6 Heart Rate 1: 84 bpm Respiratory Rate: 18 bpm SpO2: 97% Temperature: 36.6 (C ) / 97.9 (F) Weight: 180 lbs 05/11/2018 Blood Pressure 1: 124/80 Code: 8480-6 BMI: 31.7 Code: 51291-3 Heart Rate 1: 88 bpm Height: 5'3" Respiratory Rate: 20 bpm Temperature: 37.0 (C ) / 98.6 (F) Weight: 179 lbs 04/02/2018 Blood Pressure 1: 122/80 Code: 8480-6 Heart Rate 1: 78 bpm Respiratory Rate: 18 bpm SpO2: 97% Temperature: 36.2 (C ) / 97.1 (F) Weight: 181 lbs 8 oz 03/16/2018 Blood Pressure 1: 114/82 Code: 8480-6 BMI: 31.4 Code: 93340-6 Heart Rate 1: 76 bpm Height: 5'3" Respiratory Rate: 20 bpm Temperature: 37.0 (C ) / 98.6 (F) Weight: 177 lbs 02/16/2018 Blood Pressure 1: 114/72 Code: 8480-6 BMI: 31.7 Code: 42252-3 Heart Rate 1: 84 bpm Height: 5'3" Respiratory Rate: 20 bpm Temperature: 37.0 (C ) / 98.6 (F) Weight: 179 lbs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
--- OUTSIDE RECORDS SUMMARY | 2020-01-28 14:32 | XMS REPORT | Continuity of Care Document ---
Author Organization Unknown Address Unknown Phone Unavailable Allergies Active Description Code Type Severity Reaction Onset Reported/Identified Relationship to Patient Clinical Status Yes Ceftin Drug Allergy N/A N/A 07/26/2008 Yes Ceftin Drug Allergy 07/26/2008 Yes Coly Mycin M Drug Allergy 07/26/2008 Yes Ultram Drug Allergy 07/26/2008 Yes hydrochlorothiazide Drug Aller gy N/A N/A 02/03/2009 Yes sulfADIAZINE Drug Allergy N/A N/A 02/03/2009 Yes hydrochlorothiazide Drug Aller gy 02/03/2009 Yes sulfADIAZINE Drug Allergy 02/03/2009 Yes Sulfa (Sulfonamide Antibiotics) [id number] Drug Allergy Severe PER PT "THROAT 09/11/2011 Yes cefuroxime axetil [id number] Drug Allergy Unknown N/A 07/20/2012 Yes bupropion [id number] Drug Allergy Severe IRREG HEART RAT 10/21/2014 Yes latanoprost [id number] Drug Aller gy Severe SOA, ITCHING 10/21/2014 Yes tramadol [id number] Drug Allergy Unknown HEADACHE 01/05/2015 Yes amoxicillin [id number] Drug Aller gy Mild RASH AND VISUAL 03/21/2015 Yes clavulanic acid [id number] D rug Allergy Mild RASH AND VISUAL 03/21/2015 Yes PENICILLIN PENICILLIN Mild RASH 03/21/2015 Yes cefuroxime axetil [id number] Drug Allergy Unknown PER PATIENT CAN 02/22 Yes levofloxacin [id number] Drug Allergy Unknown Tachycardia 05/10/2018 Yes ciprofloxacin [id number] Nicholas g Allergy Unknown N/A 03/14/2019 Yes lidocaine [id number] Drug Allergy Unknown N/A 03/14/2019 Yes cefdinir [id number] Drug Allergy Unknown N/A 07/23/2019 Medications There is no data. Problems Date Dx Coded Attending Type Code Diagnosis Diagnosed By 05/22/1534 JUAN PAYNE, STAR Singleton Ot J18.9 PNEUMONIA, UNSPECIFIED ORGANISM 01/06/2008 380.10 MEHUL TIS EXTERNA - RIGHT EAR 01/06/2008 MIGUEL PAYNE, DANAE 380. 10 OTITIS EXTERNA - RIGHT EAR 01/06/2008 JAMIE DERAS MD 380.10 OTITIS EXTERNA - RIGHT EAR 01/06/2008 NED PAYNE, CELESTE 380.1 0 OTITIS EXTERNA - RIGHT EAR 01/06/2008 380.10 MEHUL TIS EXTERNA - RIGHT EAR 01/06/2008 JAMIE DERAS MD 380.10 OTITIS EXTERNA - RIGHT EAR 01/06/2008 JAMIE DERAS MD 380.10 OTITIS EXTERNA - RIGHT EAR 01/06/2008 JAMIE DERAS MD 380.10 OTITIS EXTERNA - RIGHT EAR 01/06/2008 JAMIE DERAS MD 380.10 OTITIS EXTERNA - RIGHT EAR 01/06/2008 380.10 MEHUL TIS EXTERNA - RIGHT EAR 01/06/2008 380.10 MEHUL TIS EXTERNA - RIGHT EAR 01/06/2008 380.10 MEHUL TIS EXTERNA - RIGHT EAR 01/06/2008 380.10 MEHUL TIS EXTERNA - RIGHT EAR 01/06/2008 380.10 MEHUL TIS EXTERNA - RIGHT EAR 01/06/2008 380.10 MEHUL TIS EXTERNA - RIGHT EAR 01/06/2008 380.10 MEHUL TIS EXTERNA - RIGHT EAR 01/06/2008 380.10 MEHUL TIS EXTERNA - RIGHT EAR 01/06/2008 380.10 MEHUL TIS EXTERNA - RIGHT EAR 01/06/2008 380.10 MEHUL TIS EXTERNA - RIGHT EAR 01/06/2008 380.10 MEHUL TIS EXTERNA - RIGHT EAR 01/06/2008 380.10 MEHUL TIS EXTERNA - RIGHT EAR 01/06/2008 JAMIE DERAS MD 380.10 OTITIS EXTERNA - RIGHT EAR 01/06/2008 JAMIE DREAS MD 380.10 OTITIS EXTERNA - RIGHT EAR 01/06/2008 JAMIE DERAS MD 380.10 OTITIS EXTERNA - RIGHT EAR 01/06/2008 PAT ZAMAN APRN 380.10 OTITIS EXTERNA - RIGHT EAR 01/06/2008 JAMIE DERAS MD 380.10 OTITIS EXTERNA - RIGHT EAR 01/06/2008 JAMIE DERAS MD 380.10 OTITIS EXTERNA - RIGHT EAR 01/06/2008 ADELA CLARK DAYANA K 380.10 OTITIS EXTERNA - RIGHT EAR 01/06/2008 MADL BOTANY PROFESSOR, JIMI L 380 .10 OTITIS EXTERNA - RIGHT EAR 01/06/2008 MADL BOTANY PROFESSOR, JIMI L 380 .10 OTITIS EXTERNA - RIGHT EAR 01/06/2008 MADL BOTANY PROFESSOR, JIMI L 380 .10 OTITIS EXTERNA - RIGHT EAR 01/06/2008 MADL BOTANY PROFESSOR, JIMI L 380 .10 OTITIS EXTERNA - RIGHT EAR 01/06/2008 MADL BOTANY PROFESSOR, JIMI L 380 .10 OTITIS EXTERNA - RIGHT EAR 01/06/2008 MADL BOTANY PROFESSOR, JIMI L 380 .10 OTITIS EXTERNA - RIGHT EAR 01/06/2008 MADL BOTANY PROFESSOR, JIMI L 380 .10 OTITIS EXTERNA - RIGHT EAR 01/06/2008 ADELA CLARK DAYANA K 380.10 OTITIS EXTERNA - RIGHT EAR 01/06/2008 CONNIE CHAPMAN DOA K 380.10 OTITIS EXTERNA - RIGHT EAR 01/06/2008 ADELA CLARK DAYANA K 380.10 OTITIS EXTERNA - RIGHT EAR 01/06/2008 MADL BOTANY PROFESSOR, JIMI L 380 .10 OTITIS EXTERNA - RIGHT EAR 01/06/2008 CONNIE CHAPMAN DOA K 380.10 OTITIS EXTERNA - RIGHT EAR 01/06/2008 CHAPMAN DO DAYANA K 380.10 OTITIS EXTERNA - RIGHT EAR 01/06/2008 MADL BOTANY PROFESSOR, JIMI L 380 .10 OTITIS EXTERNA - RIGHT EAR 01/06/2008 MADL BOTANY PROFESSOR, JIMI L 380 .10 OTITIS EXTERNA - RIGHT EAR 01/06/2008 MADL BOTANY PROFESSOR, JIMI L 380 .10 OTITIS EXTERNA - RIGHT EAR 01/06/2008 MADL BOTANY PROFESSOR, JIMI L 380 .10 OTITIS EXTERNA - RIGHT EAR 01/06/2008 MADL BOTANY PROFESSOR, JIMI L 380 .10 OTITIS EXTERNA - RIGHT EAR 01/06/2008 MADL BOTANY PROFESSOR, JIMI L 380 .10 OTITIS EXTERNA - RIGHT EAR 01/06/2008 MADL BOTANY PROFESSOR, JIMI L 380 .10 OTITIS EXTERNA - RIGHT EAR 01/06/2008 MADL BOTANY PROFESSOR, JIMI L 380 .10 OTITIS EXTERNA - RIGHT EAR 01/06/2008 MADL BOTANY PROFESSOR, JIMI L 380 .10 OTITIS EXTERNA - RIGHT EAR 01/06/2008 MADL BOTANY PROFESSOR, JIMI L 380 .10 OTITIS EXTERNA - RIGHT EAR 01/06/2008 MADL BOTANY PROFESSOR, JIMI L 380 .10 OTITIS EXTERNA - RIGHT EAR 01/06/2008 MADL BOTANY PROFESSOR, JIMI L 380 .10 OTITIS EXTERNA - RIGHT EAR 01/06/2008 MAD BOTANY PROFESSOR, JIMI L 380 .10 OTITIS EXTERNA - RIGHT EAR 01/06/2008 MAD BOTANY PROFESSOR, JIMI L 380 .10 OTITIS EXTERNA - RIGHT EAR 01/06/2008 MAD BOTANY PROFESSOR, JIMI L 380 .10 OTITIS EXTERNA - RIGHT EAR 01/06/2008 MAD BOTANY PROFESSOR, JIMI L 380 .10 OTITIS EXTERNA - RIGHT EAR 01/19/2008 382.9 UNSP ECIFIED OTITIS MEDIA 01/19/2008 MIGUEL PAYNE, DANAE 382. 9 UNSPECIFIED OTITIS MEDIA 01/19/2008 JAMIE DERAS MD 382.9 UNSPECIFIED OTITIS MEDIA 01/19/2008 NED PAYNE, CELESTE 382.9 UNSPECIFIED OTITIS MEDIA 01/19/2008 382.9 UNSP ECIFIED OTITIS MEDIA 01/19/2008 JAMIE DERAS MD 382.9 UNSPECIFIED OTITIS MEDIA 01/19/2008 JAMIE DERAS MD 382.9 UNSPECIFIED OTITIS MEDIA 01/19/2008 JAMIE DERAS MD 382.9 UNSPECIFIED OTITIS MEDIA 01/19/2008 JAMIE DERAS MD 382.9 UNSPECIFIED OTITIS MEDIA 01/19/2008 382.9 UNSP ECIFIED OTITIS MEDIA 01/19/2008 382.9 UNSP ECIFIED OTITIS MEDIA 01/19/2008 382.9 UNSP ECIFIED OTITIS MEDIA 01/19/2008 382.9 UNSP ECIFIED OTITIS MEDIA 01/19/2008 382.9 UNSP ECIFIED OTITIS MEDIA 01/19/2008 382.9 UNSP ECIFIED OTITIS MEDIA 01/19/2008 382.9 UNSP ECIFIED OTITIS MEDIA 01/19/2008 382.9 UNSP ECIFIED OTITIS MEDIA 01/19/2008 382.9 UNSP ECIFIED OTITIS MEDIA 01/19/2008 382.9 UNSP ECIFIED OTITIS MEDIA 01/19/2008 382.9 UNSP ECIFIED OTITIS MEDIA 01/19/2008 382.9 UNSP ECIFIED OTITIS MEDIA 01/19/2008 BRAEDEN PAYNE, JAMIE M 382.9 UNSPECIFIED OTITIS MEDIA 01/19/2008 BRAEDEN PAYNE, JAMIE M 382.9 UNSPECIFIED OTITIS MEDIA 01/19/2008 BRAEDEN PAYNE, JAMIE M 382.9 UNSPECIFIED OTITIS MEDIA 01/19/2008 JUNIE BOTANY PROFESSOR, PAT R 382.9 UNSPECIFIED OTITIS MEDIA 01/19/2008 BRAEDEN PAYNE, JAMIE M 382.9 UNSPECIFIED OTITIS MEDIA 01/19/2008 BRAEDEN PAYNE, JAMIE M 382.9 UNSPECIFIED OTITIS MEDIA 01/19/2008 CHAPMAN DO, DAYANA K 382.9 UNSPECIFIED OTITIS MEDIA 01/19/2008 MADL BOTANY PROFESSOR, JIMI L 382 .9 UNSPECIFIED OTITIS MEDIA 01/19/2008 MADL BOTANY PROFESSOR, JIMI L 382 .9 UNSPECIFIED OTITIS MEDIA 01/19/2008 MADL BOTANY PROFESSOR, JIMI L 382 .9 UNSPECIFIED OTITIS MEDIA 01/19/2008 MADL BOTANY PROFESSOR, JIMI L 382 .9 UNSPECIFIED OTITIS MEDIA 01/19/2008 MADL BOTANY PROFESSOR, JIMI L 382 .9 UNSPECIFIED OTITIS MEDIA 01/19/2008 MADL BOTANY PROFESSOR, JIMI L 382 .9 UNSPECIFIED OTITIS MEDIA 01/19/2008 MADL BOTANY PROFESSOR, JIMI L 382 .9 UNSPECIFIED OTITIS MEDIA 01/19/2008 CHAPMAN DO, DAYANA K 382.9 UNSPECIFIED OTITIS MEDIA 01/19/2008 CHAPMAN DO, DAYANA K 382.9 UNSPECIFIED OTITIS MEDIA 01/19/2008 CHAPMAN DO, DAYANA K 382.9 UNSPECIFIED OTITIS MEDIA 01/19/2008 MADL BOTANY PROFESSOR, JIMI L 382 .9 UNSPECIFIED OTITIS MEDIA 01/19/2008 CHAPMAN DO, DAYANA K 382.9 UNSPECIFIED OTITIS MEDIA 01/19/2008 CHAPMAN DO, DAYANA K 382.9 UNSPECIFIED OTITIS MEDIA 01/19/2008 MADL BOTANY PROFESSOR, JIMI L 382 .9 UNSPECIFIED OTITIS MEDIA 01/19/2008 MADL BOTANY PROFESSOR, JIMI L 382 .9 UNSPECIFIED OTITIS MEDIA 01/19/2008 MADL BOTANY PROFESSOR, JIMI L 382 .9 UNSPECIFIED OTITIS MEDIA 01/19/2008 MADL BOTANY PROFESSOR, JIMI L 382 .9 UNSPECIFIED OTITIS MEDIA 01/19/2008 MADL BOTANY PROFESSOR, JIMI L 382 .9 UNSPECIFIED OTITIS MEDIA 01/19/2008 MADL BOTANY PROFESSOR, JIMI L 382 .9 UNSPECIFIED OTITIS MEDIA 01/19/2008 MADL BOTANY PROFESSOR, JIMI L 382 .9 UNSPECIFIED OTITIS MEDIA 01/19/2008 MADL BOTANY PROFESSOR, JIMI L 382 .9 UNSPECIFIED OTITIS MEDIA 01/19/2008 MADL BOTANY PROFESSOR, JIMI L 382 .9 UNSPECIFIED OTITIS MEDIA 01/19/2008 MADL BOTANY PROFESSOR, JIMI L 382 .9 UNSPECIFIED OTITIS MEDIA 01/19/2008 MADL BOTANY PROFESSOR, JIMI L 382 .9 UNSPECIFIED OTITIS MEDIA 01/19/2008 MADL BOTANY PROFESSOR, JIMI L 382 .9 UNSPECIFIED OTITIS MEDIA 01/19/2008 MADL BOTANY PROFESSOR, JIMI L 382 .9 UNSPECIFIED OTITIS MEDIA 01/19/2008 MADL BOTANY PROFESSOR, JIMI L 382 .9 UNSPECIFIED OTITIS MEDIA 01/19/2008 MADL BOTANY PROFESSOR, JIMI L 382 .9 UNSPECIFIED OTITIS MEDIA 01/19/2008 MADL BOTANY PROFESSOR, JIMI L 382 .9 UNSPECIFIED OTITIS MEDIA 04/12/2008 715.00 OST EOARTHROSIS GENERALIZED INVOLVING UNSPECIFIED SITE 04/12/2008 DANAE RIVERA MD 715. 00 OSTEOARTHROSIS GENERALIZED INVOLVING UNSPECIFIED SITE 04/12/2008 JAMIE DERAS MD 715.00 OSTEOARTHROSIS GENERALIZED INVOLVING UNSPECIFIED SITE 04/12/2008 CELESTE MARINO MD 715.0 0 OSTEOARTHROSIS GENERALIZED INVOLVING UNSPECIFIED SITE 04/12/2008 715.00 OST EOARTHROSIS GENERALIZED INVOLVING UNSPECIFIED SITE 04/12/2008 JAMIE DERAS MD 715.00 OSTEOARTHROSIS GENERALIZED INVOLVING UNSPECIFIED SITE 04/12/2008 JAMIE DERAS MD 715.00 OSTEOARTHROSIS GENERALIZED INVOLVING UNSPECIFIED SITE 04/12/2008 JAMIE DERAS MD 715.00 OSTEOARTHROSIS GENERALIZED INVOLVING UNSPECIFIED SITE 04/12/2008 JAMIE DERAS MD 715.00 OSTEOARTHROSIS GENERALIZED INVOLVING UNSPECIFIED SITE 04/12/2008 715.00 OST EOARTHROSIS GENERALIZED INVOLVING UNSPECIFIED SITE 04/12/2008 715.00 OST EOARTHROSIS GENERALIZED INVOLVING UNSPECIFIED SITE 04/12/2008 715.00 OST EOARTHROSIS GENERALIZED INVOLVING UNSPECIFIED SITE 04/12/2008 715.00 OST EOARTHROSIS GENERALIZED INVOLVING UNSPECIFIED SITE 04/12/2008 715.00 OST EOARTHROSIS GENERALIZED INVOLVING UNSPECIFIED SITE 04/12/2008 715.00 OST EOARTHROSIS GENERALIZED INVOLVING UNSPECIFIED SITE 04/12/2008 715.00 OST EOARTHROSIS GENERALIZED INVOLVING UNSPECIFIED SITE 04/12/2008 715.00 OST EOARTHROSIS GENERALIZED INVOLVING UNSPECIFIED SITE 04/12/2008 715.00 OST EOARTHROSIS GENERALIZED INVOLVING UNSPECIFIED SITE 04/12/2008 715.00 OST EOARTHROSIS GENERALIZED INVOLVING UNSPECIFIED SITE 04/12/2008 715.00 OST EOARTHROSIS GENERALIZED INVOLVING UNSPECIFIED SITE 04/12/2008 715.00 OST EOARTHROSIS GENERALIZED INVOLVING UNSPECIFIED SITE 04/12/2008 JAMIE DERAS MD 715.00 OSTEOARTHROSIS GENERALIZED INVOLVING UNSPECIFIED SITE 04/12/2008 JAMIE DERAS MD 715.00 OSTEOARTHROSIS GENERALIZED INVOLVING UNSPECIFIED SITE 04/12/2008 JAMIE DERAS MD 715.00 OSTEOARTHROSIS GENERALIZED INVOLVING UNSPECIFIED SITE 04/12/2008 PAT ZAMAN APRN 715.00 OSTEOARTHROSIS GENERALIZED INVOLVING UNSPECIFIED SITE 04/12/2008 JAMIE DERAS MD 715.00 OSTEOARTHROSIS GENERALIZED INVOLVING UNSPECIFIED SITE 04/12/2008 JAMIE DERAS MD 715.00 OSTEOARTHROSIS GENERALIZED INVOLVING UNSPECIFIED SITE 04/12/2008 DAYANA CHAPMAN DO 715.00 OSTEOARTHROSIS GENERALIZED INVOLVING UNSPECIFIED SITE 04/12/2008 LEN ROBB APRNA L 715 .00 OSTEOARTHROSIS GENERALIZED INVOLVING UNSPECIFIED SITE 04/12/2008 LEN ROBB APRNA L 715 .00 OSTEOARTHROSIS GENERALIZED INVOLVING UNSPECIFIED SITE 04/12/2008 ELMA ROBB APRNWNYA L 715 .00 OSTEOARTHROSIS GENERALIZED INVOLVING UNSPECIFIED SITE 04/12/2008 LEN ROBB APRNA L 715 .00 OSTEOARTHROSIS GENERALIZED INVOLVING UNSPECIFIED SITE 04/12/2008 MADL BOTANY PROFESSOR, JIMI L 715 .00 OSTEOARTHROSIS GENERALIZED INVOLVING UNSPECIFIED SITE 04/12/2008 MADL BOTANY PROFESSOR, JIMI L 715 .00 OSTEOARTHROSIS GENERALIZED INVOLVING UNSPECIFIED SITE 04/12/2008 MADL BOTANY PROFESSOR, JIMI L 715 .00 OSTEOARTHROSIS GENERALIZED INVOLVING UNSPECIFIED SITE 04/12/2008 CHAPMAN DO, DAYANA K 715.00 OSTEOARTHROSIS GENERALIZED INVOLVING UNSPECIFIED SITE 04/12/2008 CHAPMAN DO, DAYANA K 715.00 OSTEOARTHROSIS GENERALIZED INVOLVING UNSPECIFIED SITE 04/12/2008 CHAPMAN DO, DAYANA K 715.00 OSTEOARTHROSIS GENERALIZED INVOLVING UNSPECIFIED SITE 04/12/2008 MADL BOTANY PROFESSOR, JIMI L 715 .00 OSTEOARTHROSIS GENERALIZED INVOLVING UNSPECIFIED SITE 04/12/2008 CHAPMAN DO, DAYANA K 715.00 OSTEOARTHROSIS GENERALIZED INVOLVING UNSPECIFIED SITE 04/12/2008 CHAPMAN DO, DAYANA K 715.00 OSTEOARTHROSIS GENERALIZED INVOLVING UNSPECIFIED SITE 04/12/2008 MADL BOTANY PROFESSOR, JIMI L 715 .00 OSTEOARTHROSIS GENERALIZED INVOLVING UNSPECIFIED SITE 04/12/2008 MADL BOTANY PROFESSOR, JIMI L 715 .00 OSTEOARTHROSIS GENERALIZED INVOLVING UNSPECIFIED SITE 04/12/2008 MADL BOTANY PROFESSOR, JIMI L 715 .00 OSTEOARTHROSIS GENERALIZED INVOLVING UNSPECIFIED SITE 04/12/2008 MADL BOTANY PROFESSOR, JIMI L 715 .00 OSTEOARTHROSIS GENERALIZED INVOLVING UNSPECIFIED SITE 04/12/2008 MADL BOTANY PROFESSOR, JIMI L 715 .00 OSTEOARTHROSIS GENERALIZED INVOLVING UNSPECIFIED SITE 04/12/2008 MADL BOTANY PROFESSOR, JIMI L 715 .00 OSTEOARTHROSIS GENERALIZED INVOLVING UNSPECIFIED SITE 04/12/2008 MADL BOTANY PROFESSOR, JIMI L 715 .00 OSTEOARTHROSIS GENERALIZED INVOLVING UNSPECIFIED SITE 04/12/2008 MADL BOTANY PROFESSOR, JIMI L 715 .00 OSTEOARTHROSIS GENERALIZED INVOLVING UNSPECIFIED SITE 04/12/2008 MADL BOTANY PROFESSOR, JIMI L 715 .00 OSTEOARTHROSIS GENERALIZED INVOLVING UNSPECIFIED SITE 04/12/2008 MADL BOTANY PROFESSOR, JIMI L 715 .00 OSTEOARTHROSIS GENERALIZED INVOLVING UNSPECIFIED SITE 04/12/2008 MADL BOTANY PROFESSOR, JIMI L 715 .00 OSTEOARTHROSIS GENERALIZED INVOLVING UNSPECIFIED SITE 04/12/2008 MADL BOTANY PROFESSOR, JIMI L 715 .00 OSTEOARTHROSIS GENERALIZED INVOLVING UNSPECIFIED SITE 04/12/2008 MADL BOTANY PROFESSOR, JIMI L 715 .00 OSTEOARTHROSIS GENERALIZED INVOLVING UNSPECIFIED SITE 04/12/2008 MADL BOTANY PROFESSOR, JIMI L 715 .00 OSTEOARTHROSIS GENERALIZED INVOLVING UNSPECIFIED SITE 04/12/2008 MADL BOTANY PROFESSOR, JIMI L 715 .00 OSTEOARTHROSIS GENERALIZED INVOLVING UNSPECIFIED SITE 04/12/2008 MADL BOTANY PROFESSOR, JIMI L 715 .00 OSTEOARTHROSIS GENERALIZED INVOLVING UNSPECIFIED SITE 05/03/2008 461.9 SINU SITIS ACUTE 05/03/2008 MIGUEL PAYNE, DANAE 461. 9 SINUSITIS ACUTE 05/03/2008 JAMIE DERAS MD 461.9 SINUSITIS ACUTE 05/03/2008 NED PAYNE, CELESTE 461.9 SINUSITIS ACUTE 05/03/2008 461.9 SINU SITIS ACUTE 05/03/2008 JAMEI DERAS MD 461.9 SINUSITIS ACUTE 05/03/2008 JAMIE DERAS MD 461.9 SINUSITIS ACUTE 05/03/2008 JAMIE DERAS MD 461.9 SINUSITIS ACUTE 05/03/2008 JAMIE DERAS MD 461.9 SINUSITIS ACUTE 05/03/2008 461.9 SINU SITIS ACUTE 05/03/2008 461.9 SINU SITIS ACUTE 05/03/2008 461.9 SINU SITIS ACUTE 05/03/2008 461.9 SINU SITIS ACUTE 05/03/2008 461.9 SINU SITIS ACUTE 05/03/2008 461.9 SINU SITIS ACUTE 05/03/2008 461.9 SINU SITIS ACUTE 05/03/2008 461.9 SINU SITIS ACUTE 05/03/2008 461.9 SINU SITIS ACUTE 05/03/2008 461.9 SINU SITIS ACUTE 05/03/2008 461.9 SINU SITIS ACUTE 05/03/2008 461.9 SINU SITIS ACUTE 05/03/2008 JAMIE DERAS MD 461.9 SINUSITIS ACUTE 05/03/2008 JAMIE DERAS MD 461.9 SINUSITIS ACUTE 05/03/2008 BRAEDEN PAYNE, JAMIE M 461.9 SINUSITIS ACUTE 05/03/2008 JUNIE BOTANY PROFESSOR, PAT R 461.9 SINUSITIS ACUTE 05/03/2008 BRAEDEN PAYNE, JAMIE M 461.9 SINUSITIS ACUTE 05/03/2008 BRAEDEN PAYNE, JAMIE M 461.9 SINUSITIS ACUTE 05/03/2008 CHAPMAN DO, DAYANA K 461.9 SINUSITIS ACUTE 05/03/2008 MADL BOTANY PROFESSOR, JIMI L 461 .9 SINUSITIS ACUTE 05/03/2008 MADL BOTANY PROFESSOR, JIMI L 461 .9 SINUSITIS ACUTE 05/03/2008 MADL BOTANY PROFESSOR, JIMI L 461 .9 SINUSITIS ACUTE 05/03/2008 MADL BOTANY PROFESSOR, JIMI L 461 .9 SINUSITIS ACUTE 05/03/2008 MADL BOTANY PROFESSOR, JIMI L 461 .9 SINUSITIS ACUTE 05/03/2008 MADL BOTANY PROFESSOR, JIMI L 461 .9 SINUSITIS ACUTE 05/03/2008 MADL BOTANY PROFESSOR, JIMI L 461 .9 SINUSITIS ACUTE 05/03/2008 CHAPMAN DO, DAYANA K 461.9 SINUSITIS ACUTE 05/03/2008 CHAPMAN DO, DAYANA K 461.9 SINUSITIS ACUTE 05/03/2008 CHAPMAN DO, DAYANA K 461.9 SINUSITIS ACUTE 05/03/2008 MADL BOTANY PROFESSOR, JIMI L 461 .9 SINUSITIS ACUTE 05/03/2008 CHAPMAN DO, DAYANA K 461.9 SINUSITIS ACUTE 05/03/2008 CHAPMAN DO, DAYANA K 461.9 SINUSITIS ACUTE 05/03/2008 MADL BOTANY PROFESSOR, JIMI L 461 .9 SINUSITIS ACUTE 05/03/2008 MADL BOTANY PROFESSOR, JIMI L 461 .9 SINUSITIS ACUTE 05/03/2008 MADL BOTANY PROFESSOR, IJMI L 461 .9 SINUSITIS ACUTE 05/03/2008 MADL BOTANY PROFESSOR, JIMI L 461 .9 SINUSITIS ACUTE 05/03/2008 MADL BOTANY PROFESSOR, JIMI L 461 .9 SINUSITIS ACUTE 05/03/2008 MADL BOTANY PROFESSOR, JIMI L 461 .9 SINUSITIS ACUTE 05/03/2008 MADL BOTANY PROFESSOR, JIMI L 461 .9 SINUSITIS ACUTE 05/03/2008 MADL BOTANY PROFESSOR, JIMI L 461 .9 SINUSITIS ACUTE 05/03/2008 MADL BOTANY PROFESSOR, JIMI L 461 .9 SINUSITIS ACUTE 05/03/2008 MADL BOTANY PROFESSOR, JIMI L 461 .9 SINUSITIS ACUTE 05/03/2008 MADL BOTANY PROFESSOR, JIMI L 461 .9 SINUSITIS ACUTE 05/03/2008 MADL BOTANY PROFESSOR, JIMI L 461 .9 SINUSITIS ACUTE 05/03/2008 MADL BOTANY PROFESSOR, JIMI L 461 .9 SINUSITIS ACUTE 05/03/2008 MADL BOTANY PROFESSOR, JIMI L 461 .9 SINUSITIS ACUTE 05/03/2008 MADL BOTANY PROFESSOR, JIMI L 461 .9 SINUSITIS ACUTE 05/03/2008 MADL BOTANY PROFESSOR, JIMI L 461 .9 SINUSITIS ACUTE 07/26/2008 388.70 earache 07/26/2008 723.1 CERV ICALGIA 07/26/2008 MIGUEL PAYNE, DANAE 388. 70 earache 07/26/2008 MIGUEL PAYNE, DANAE 723. 1 CERVICALGIA 07/26/2008 JAMIE DERAS MD 388.70 earache 07/26/2008 JAMIE DERAS MD 723.1 CERVICALGIA 07/26/2008 CELESTE MARINO MD 388.7 0 earache 07/26/2008 CELESTE MARINO MD 723.1 CERVICALGIA 07/26/2008 388.70 earache 07/26/2008 723.1 CERV ICALGIA 07/26/2008 JAMIE DERAS MD 388.70 earache 07/26/2008 JAMIE DERAS MD 723.1 CERVICALGIA 07/26/2008 JAMIE DERAS MD 388.70 earache 07/26/2008 JAMIE DERAS MD 723.1 CERVICALGIA 07/26/2008 JAMIE DERAS MD 388.70 earache 07/26/2008 JAMIE DERAS MD 723.1 CERVICALGIA 07/26/2008 JAMIE DERAS MD 388.70 earache 07/26/2008 JAMIE DERAS MD 723.1 CERVICALGIA 07/26/2008 388.70 earache 07/26/2008 723.1 CERV ICALGIA 07/26/2008 388.70 earache 07/26/2008 723.1 CERV ICALGIA 07/26/2008 388.70 earache 07/26/2008 723.1 CERV ICALGIA 07/26/2008 388.70 earache 07/26/2008 723.1 CERV ICALGIA 07/26/2008 388.70 earache 07/26/2008 723.1 CERV ICALGIA 07/26/2008 388.70 earache 07/26/2008 723.1 CERV ICALGIA 07/26/2008 388.70 earache 07/26/2008 723.1 CERV ICALGIA 07/26/2008 388.70 earache 07/26/2008 723.1 CERV ICALGIA 07/26/2008 388.70 earache 07/26/2008 723.1 CERV ICALGIA 07/26/2008 388.70 earache 07/26/2008 723.1 CERV ICALGIA 07/26/2008 388.70 earache 07/26/2008 723.1 CERV ICALGIA 07/26/2008 388.70 earache 07/26/2008 723.1 CERV ICALGIA 07/26/2008 JAMIE DERAS MD 388.70 earache 07/26/2008 JAMIE DERAS MD 723.1 CERVICALGIA 07/26/2008 JAMIE DERAS MD 388.70 earache 07/26/2008 JAMIE DERAS MD 723.1 CERVICALGIA 07/26/2008 JAMIE DERAS MD 388.70 earache 07/26/2008 JAMIE DERAS MD 723.1 CERVICALGIA 07/26/2008 JUNIE BOTANY PROFESSOR, PAT R 388.70 earache 07/26/2008 JUNIE BOTANY PROFESSOR, PAT R 723.1 CERVICALGIA 07/26/2008 JAMIE DERAS MD 388.70 earache 07/26/2008 JAMIE DERAS MD 723.1 CERVICALGIA 07/26/2008 JAMIE DERAS MD 388.70 earache 07/26/2008 BRAEDEN PAYNE, JAMIE Swift 723.1 CERVICALGIA 07/26/2008 CHAPMAN DO, DAYANA K 388.70 earache 07/26/2008 CHAPMAN DO, DAYANA K 723.1 CERVICALGIA 07/26/2008 MADL BOTANY PROFESSOR, JIMI L 388 .70 earache 07/26/2008 MADL BOTANY PROFESSOR, JIMI L 723 .1 CERVICALGIA 07/26/2008 MADL BOTANY PROFESSOR, JIMI L 388 .70 earache 07/26/2008 MADL BOTANY PROFESSOR, JIMI L 723 .1 CERVICALGIA 07/26/2008 MADL BOTANY PROFESSOR, JIMI L 388 .70 earache 07/26/2008 MADL BOTANY PROFESSOR, JIMI L 723 .1 CERVICALGIA 07/26/2008 MADL BOTANY PROFESSOR, JIMI L 388 .70 earache 07/26/2008 MADL BOTANY PROFESSOR, JIMI L 723 .1 CERVICALGIA 07/26/2008 MADL BOTANY PROFESSOR, JIMI L 388 .70 earache 07/26/2008 MADL BOTANY PROFESSOR, JIMI L 723 .1 CERVICALGIA 07/26/2008 MADL BOTANY PROFESSOR, JIMI L 388 .70 earache 07/26/2008 MADL BOTANY PROFESSOR, JIMI L 723 .1 CERVICALGIA 07/26/2008 MADL BOTANY PROFESSOR, JIMI L 388 .70 earache 07/26/2008 MADL BOTANY PROFESSOR, JIMI L 723 .1 CERVICALGIA 07/26/2008 CHAPMAN DO, DAYANA K 388.70 earache 07/26/2008 CHAPMAN DO, DAYANA K 723.1 CERVICALGIA 07/26/2008 CHAPMAN DO, DAYANA K 388.70 earache 07/26/2008 CHAPMAN DO, DAYANA K 723.1 CERVICALGIA 07/26/2008 CHAPMAN DO, DAYANA K 388.70 earache 07/26/2008 CHAPMAN DO, DAYANA K 723.1 CERVICALGIA 07/26/2008 MADL BOTANY PROFESSOR, JIMI L 388 .70 earache 07/26/2008 MADL BOTANY PROFESSOR, JIMI L 723 .1 CERVICALGIA 07/26/2008 CHAPMAN DO, DAYANA K 388.70 earache 07/26/2008 CHAPMAN DO, DAYANA K 723.1 CERVICALGIA 07/26/2008 CHAPMAN DO, DAYANA K 388.70 earache 07/26/2008 CHAPMAN DO, DAYANA K 723.1 CERVICALGIA 07/26/2008 MADL BOTANY PROFESSOR, JIMI L 388 .70 earache 07/26/2008 MADL BOTANY PROFESSOR, JIMI L 723 .1 CERVICALGIA 07/26/2008 MADL BOTANY PROFESSOR, JIMI L 388 .70 earache 07/26/2008 MADL BOTANY PROFESSOR, JIMI L 723 .1 CERVICALGIA 07/26/2008 MADL BOTANY PROFESSOR, JIMI L 388 .70 earache 07/26/2008 MADL BOTANY PROFESSOR, JIMI L 723 .1 CERVICALGIA 07/26/2008 MADL BOTANY PROFESSOR, JIMI L 388 .70 earache 07/26/2008 MADL BOTANY PROFESSOR, JIMI L 723 .1 CERVICALGIA 07/26/2008 MADL BOTANY PROFESSOR, JIMI L 388 .70 earache 07/26/2008 MADL BOTANY PROFESSOR, JIMI L 723 .1 CERVICALGIA 07/26/2008 MADL BOTANY PROFESSOR, JIMI L 388 .70 earache 07/26/2008 MADL BOTANY PROFESSOR, JIMI L 723 .1 CERVICALGIA 07/26/2008 MADL BOTANY PROFESSOR, JIMI L 388 .70 earache 07/26/2008 MADL BOTANY PROFESSOR, JIMI L 723 .1 CERVICALGIA 07/26/2008 MADL BOTANY PROFESSOR, JIMI L 388 .70 earache 07/26/2008 MADL BOTANY PROFESSOR, JIMI L 723 .1 CERVICALGIA 07/26/2008 MADL BOTANY PROFESSOR, JIMI L 388 .70 earache 07/26/2008 MADL BOTANY PROFESSOR, JIMI L 723 .1 CERVICALGIA 07/26/2008 MADL BOTANY PROFESSOR, JIMI L 388 .70 earache 07/26/2008 MADL BOTANY PROFESSOR, JIMI L 723 .1 CERVICALGIA 07/26/2008 MADL BOTANY PROFESSOR, JIMI L 388 .70 earache 07/26/2008 MADL BOTANY PROFESSOR, JIMI L 723 .1 CERVICALGIA 07/26/2008 MADL BOTANY PROFESSOR, JIMI L 388 .70 earache 07/26/2008 MADL BOTANY PROFESSOR, JIMI L 723 .1 CERVICALGIA 07/26/2008 MADL BOTANY PROFESSOR, JIMI L 388 .70 earache 07/26/2008 MADL BOTANY PROFESSOR, JIMI L 723 .1 CERVICALGIA 07/26/2008 MADL BOTANY PROFESSOR, JIMI L 388 .70 earache 07/26/2008 MADL BOTANY PROFESSOR, JIMI L 723 .1 CERVICALGIA 07/26/2008 MADL BOTANY PROFESSOR, JIMI L 388 .70 earache 07/26/2008 MADL BOTANY PROFESSOR, JIMI L 723 .1 CERVICALGIA 07/26/2008 MADL BOTANY PROFESSOR, JIMI L 388 .70 earache 07/26/2008 MADL BOTANY PROFESSOR, JIMI L 723 .1 CERVICALGIA 02/03/2009 401.1 ANTON GN ESSENTIAL HYPERTENSION 02/03/2009 728.85 SPA SM OF MUSCLE 02/03/2009 DANAE RIVERA MD 401. 1 BENIGN ESSENTIAL HYPERTENSION 02/03/2009 DANAE RIVERA MD 728. 85 SPASM OF MUSCLE 02/03/2009 JAMIE DERAS MD 401.1 BENIGN ESSENTIAL HYPERTENSION 02/03/2009 JAMIE DERAS MD 728.85 SPASM OF MUSCLE 02/03/2009 CELESTE MARINO MD 401.1 BENIGN ESSENTIAL HYPERTENSION 02/03/2009 CELESTE MARINO MD 728.8 5 SPASM OF MUSCLE 02/03/2009 401.1 ANTON GN ESSENTIAL HYPERTENSION 02/03/2009 728.85 SPA SM OF MUSCLE 02/03/2009 JAMIE DERAS MD 401.1 BENIGN ESSENTIAL HYPERTENSION 02/03/2009 JAMIE DERAS MD 728.85 SPASM OF MUSCLE 02/03/2009 JAMIE DERAS MD 401.1 BENIGN ESSENTIAL HYPERTENSION 02/03/2009 JAMIE DERAS MD 728.85 SPASM OF MUSCLE 02/03/2009 JMAIE DERAS MD 401.1 BENIGN ESSENTIAL HYPERTENSION 02/03/2009 JAMIE DERAS MD 728.85 SPASM OF MUSCLE 02/03/2009 JAMIE DERAS MD 401.1 BENIGN ESSENTIAL HYPERTENSION 02/03/2009 JAMIE DERAS MD 728.85 SPASM OF MUSCLE 02/03/2009 401.1 ANTON GN ESSENTIAL HYPERTENSION 02/03/2009 728.85 SPA SM OF MUSCLE 02/03/2009 401.1 ANTON GN ESSENTIAL HYPERTENSION 02/03/2009 728.85 SPA SM OF MUSCLE 02/03/2009 401.1 ANTON GN ESSENTIAL HYPERTENSION 02/03/2009 728.85 SPA SM OF MUSCLE 02/03/2009 401.1 ANTON GN ESSENTIAL HYPERTENSION 02/03/2009 728.85 SPA SM OF MUSCLE 02/03/2009 401.1 ANTON GN ESSENTIAL HYPERTENSION 02/03/2009 728.85 SPA SM OF MUSCLE 02/03/2009 401.1 ANTON GN ESSENTIAL HYPERTENSION 02/03/2009 728.85 SPA SM OF MUSCLE 02/03/2009 401.1 ANTON GN ESSENTIAL HYPERTENSION 02/03/2009 728.85 SPA SM OF MUSCLE 02/03/2009 401.1 ANTON GN ESSENTIAL HYPERTENSION 02/03/2009 728.85 SPA SM OF MUSCLE 02/03/2009 401.1 ANTON GN ESSENTIAL HYPERTENSION 02/03/2009 728.85 SPA SM OF MUSCLE 02/03/2009 401.1 ANTON GN ESSENTIAL HYPERTENSION 02/03/2009 728.85 SPA SM OF MUSCLE 02/03/2009 401.1 ANTON GN ESSENTIAL HYPERTENSION 02/03/2009 728.85 SPA SM OF MUSCLE 02/03/2009 401.1 ANTON GN ESSENTIAL HYPERTENSION 02/03/2009 728.85 SPA SM OF MUSCLE 02/03/2009 JAMIE DERAS MD 401.1 BENIGN ESSENTIAL HYPERTENSION 02/03/2009 JAMIE DERAS MD 728.85 SPASM OF MUSCLE 02/03/2009 JAMIE DERAS MD 401.1 BENIGN ESSENTIAL HYPERTENSION 02/03/2009 JAMIE DERAS MD 728.85 SPASM OF MUSCLE 02/03/2009 JAMIE DERAS MD 401.1 BENIGN ESSENTIAL HYPERTENSION 02/03/2009 JAMIE DERAS MD 728.85 SPASM OF MUSCLE 02/03/2009 PAT ZAMAN APRN R 401.1 BENIGN ESSENTIAL HYPERTENSION 02/03/2009 DAT ZAMAN APRNINA R 728.85 SPASM OF MUSCLE 02/03/2009 JAMIE DERAS MD 401.1 BENIGN ESSENTIAL HYPERTENSION 02/03/2009 JAMIE DERAS MD 728.85 SPASM OF MUSCLE 02/03/2009 JAMIE DERAS MD 401.1 BENIGN ESSENTIAL HYPERTENSION 02/03/2009 JAMIE DERAS MD 728.85 SPASM OF MUSCLE 02/03/2009 CHAPMAN DO, DAYANA K 401.1 BENIGN ESSENTIAL HYPERTENSION 02/03/2009 CHAPMAN DO, DAYANA K 728.85 SPASM OF MUSCLE 02/03/2009 MADL BOTANY PROFESSOR, JIMI L 401 .1 BENIGN ESSENTIAL HYPERTENSION 02/03/2009 MADL BOTANY PROFESSOR, JIMI L 728 .85 SPASM OF MUSCLE 02/03/2009 MADL BOTANY PROFESSOR, JIMI L 401 .1 BENIGN ESSENTIAL HYPERTENSION 02/03/2009 MADL BOTANY PROFESSOR, JIMI L 728 .85 SPASM OF MUSCLE 02/03/2009 MADL BOTANY PROFESSOR, JIMI L 401 .1 BENIGN ESSENTIAL HYPERTENSION 02/03/2009 MADL BOTANY PROFESSOR, JIMI L 728 .85 SPASM OF MUSCLE 02/03/2009 MADL BOTANY PROFESSOR, JIMI L 401 .1 BENIGN ESSENTIAL HYPERTENSION 02/03/2009 MADL BOTANY PROFESSOR, JIMI L 728 .85 SPASM OF MUSCLE 02/03/2009 MADL BOTANY PROFESSOR, JIMI L 401 .1 BENIGN ESSENTIAL HYPERTENSION 02/03/2009 MADL BOTANY PROFESSOR, JIMI L 728 .85 SPASM OF MUSCLE 02/03/2009 MADL BOTANY PROFESSOR, JIMI L 401 .1 BENIGN ESSENTIAL HYPERTENSION 02/03/2009 MADL BOTANY PROFESSOR, JIMI L 728 .85 SPASM OF MUSCLE 02/03/2009 MADL BOTANY PROFESSOR, JIMI L 401 .1 BENIGN ESSENTIAL HYPERTENSION 02/03/2009 MADL BOTANY PROFESSOR, JIMI L 728 .85 SPASM OF MUSCLE 02/03/2009 CHAPMAN DO, DAYANA K 401.1 BENIGN ESSENTIAL HYPERTENSION 02/03/2009 CHAPMAN DO, DAYANA K 728.85 SPASM OF MUSCLE 02/03/2009 CHAPMAN DO, DAYANA K 401.1 BENIGN ESSENTIAL HYPERTENSION 02/03/2009 CHAPMAN DO, DAYANA K 728.85 SPASM OF MUSCLE 02/03/2009 CHAPMAN DO, DAYANA K 401.1 BENIGN ESSENTIAL HYPERTENSION 02/03/2009 CHAPMAN DO, DAYANA K 728.85 SPASM OF MUSCLE 02/03/2009 MADL BOTANY PROFESSOR, JIMI L 401 .1 BENIGN ESSENTIAL HYPERTENSION 02/03/2009 MADL BOTANY PROFESSOR, JIMI L 728 .85 SPASM OF MUSCLE 02/03/2009 CHAPMAN DO, DAYANA K 401.1 BENIGN ESSENTIAL HYPERTENSION 02/03/2009 CHAPMAN DO, DAYANA K 728.85 SPASM OF MUSCLE 02/03/2009 CHAPMAN DO, DAYANA K 401.1 BENIGN ESSENTIAL HYPERTENSION 02/03/2009 CHAPMAN DO, DAYANA K 728.85 SPASM OF MUSCLE 02/03/2009 MADL BOTANY PROFESSOR, JIMI L 401 .1 BENIGN ESSENTIAL HYPERTENSION 02/03/2009 MADL BOTANY PROFESSOR, JIMI L 728 .85 SPASM OF MUSCLE 02/03/2009 MADL BOTANY PROFESSOR, JIMI L 401 .1 BENIGN ESSENTIAL HYPERTENSION 02/03/2009 MADL BOTANY PROFESSOR, JIMI L 728 .85 SPASM OF MUSCLE 02/03/2009 MADL BOTANY PROFESSOR, JIMI L 401 .1 BENIGN ESSENTIAL HYPERTENSION 02/03/2009 MADL BOTANY PROFESSOR, JIMI L 728 .85 SPASM OF MUSCLE 02/03/2009 MADL BOTANY PROFESSOR, JIMI L 401 .1 BENIGN ESSENTIAL HYPERTENSION 02/03/2009 MADL BOTANY PROFESSOR, JIMI L 728 .85 SPASM OF MUSCLE 02/03/2009 MADL BOTANY PROFESSOR, JIMI L 401 .1 BENIGN ESSENTIAL HYPERTENSION 02/03/2009 MADL BOTANY PROFESSOR, JIMI L 728 .85 SPASM OF MUSCLE 02/03/2009 MADL BOTANY PROFESSOR, JIMI L 401 .1 BENIGN ESSENTIAL HYPERTENSION 02/03/2009 MADL BOTANY PROFESSOR, JIMI L 728 .85 SPASM OF MUSCLE 02/03/2009 MADL BOTANY PROFESSOR, JIMI L 401 .1 BENIGN ESSENTIAL HYPERTENSION 02/03/2009 MADL BOTANY PROFESSOR, JIMI L 728 .85 SPASM OF MUSCLE 02/03/2009 MADL BOTANY PROFESSOR, JIMI L 401 .1 BENIGN ESSENTIAL HYPERTENSION 02/03/2009 MADL BOTANY PROFESSOR, JIMI L 728 .85 SPASM OF MUSCLE 02/03/2009 MADL BOTANY PROFESSOR, JIMI L 401 .1 BENIGN ESSENTIAL HYPERTENSION 02/03/2009 MADL BOTANY PROFESSOR, JIMI L 728 .85 SPASM OF MUSCLE 02/03/2009 MADL BOTANY PROFESSOR, JIMI L 401 .1 BENIGN ESSENTIAL HYPERTENSION 02/03/2009 MADL BOTANY PROFESSOR, JIMI L 728 .85 SPASM OF MUSCLE 02/03/2009 MADL BOTANY PROFESSOR, JIMI L 401 .1 BENIGN ESSENTIAL HYPERTENSION 02/03/2009 MADL BOTANY PROFESSOR, JIMI L 728 .85 SPASM OF MUSCLE 02/03/2009 MADL BOTANY PROFESSOR, JIMI L 401 .1 BENIGN ESSENTIAL HYPERTENSION 02/03/2009 MADL BOTANY PROFESSOR, JIMI L 728 .85 SPASM OF MUSCLE 02/03/2009 MADL BOTANY PROFESSOR, JIMI L 401 .1 BENIGN ESSENTIAL HYPERTENSION 02/03/2009 MADL BOTANY PROFESSOR, JIMI L 728 .85 SPASM OF MUSCLE 02/03/2009 MADL BOTANY PROFESSOR, JIMI L 401 .1 BENIGN ESSENTIAL HYPERTENSION 02/03/2009 MADL BOTANY PROFESSOR, JIMI L 728 .85 SPASM OF MUSCLE 02/03/2009 MADL BOTANY PROFESSOR, JIMI L 401 .1 BENIGN ESSENTIAL HYPERTENSION 02/03/2009 MADL BOTANY PROFESSOR, JIMI L 728 .85 SPASM OF MUSCLE 02/03/2009 MADL BOTANY PROFESSOR, JIMI L 401 .1 BENIGN ESSENTIAL HYPERTENSION 02/03/2009 MADL BOTANY PROFESSOR, JIMI L 728 .85 SPASM OF MUSCLE 07/25/2009 630 PREGNA NCY HYDATIDIFORM MOLE (MOLAR - NON-METASTATIC GTD) 07/25/2009 DANAE RIVERA MD 630 HYDATIDIFORM MOLE (MOLAR - NON-METASTATIC GTD) 07/25/2009 JAMIE DERAS MD 630 HYDATIDIFORM MOLE (MOLAR - NON-METASTATIC GT D) 07/25/2009 CELESTE MARINO MD 630 HYDATIDIFORM MOLE (MOLAR - NON-METASTATIC GTD) 07/25/2009 630 PREGNA NCY HYDATIDIFORM MOLE (MOLAR - NON-METASTATIC GTD) 07/25/2009 JAMIE DERAS MD 630 HYDATIDIFORM MOLE (MOLAR - NON-METASTATIC GT D) 07/25/2009 JAMIE DERAS MD 630 HYDATIDIFORM MOLE (MOLAR - NON-METASTATIC GT D) 07/25/2009 JAMIE DERAS MD 630 HYDATIDIFORM MOLE (MOLAR - NON-METASTATIC GT D) 07/25/2009 JAMIE DERAS MD 630 HYDATIDIFORM MOLE (MOLAR - NON-METASTATIC GT D) 07/25/2009 630 PREGNA NCY HYDATIDIFORM MOLE (MOLAR - NON-METASTATIC GTD) 07/25/2009 630 PREGNA NCY HYDATIDIFORM MOLE (MOLAR - NON-METASTATIC GTD) 07/25/2009 630 PREGNA NCY HYDATIDIFORM MOLE (MOLAR - NON-METASTATIC GTD) 07/25/2009 630 PREGNA NCY HYDATIDIFORM MOLE (MOLAR - NON-METASTATIC GTD) 07/25/2009 630 PREGNA NCY HYDATIDIFORM MOLE (MOLAR - NON-METASTATIC GTD) 07/25/2009 630 PREGNA NCY HYDATIDIFORM MOLE (MOLAR - NON-METASTATIC GTD) 07/25/2009 630 PREGNA NCY HYDATIDIFORM MOLE (MOLAR - NON-METASTATIC GTD) 07/25/2009 630 PREGNA NCY HYDATIDIFORM MOLE (MOLAR - NON-METASTATIC GTD) 07/25/2009 630 PREGNA NCY HYDATIDIFORM MOLE (MOLAR - NON-METASTATIC GTD) 07/25/2009 630 PREGNA NCY HYDATIDIFORM MOLE (MOLAR - NON-METASTATIC GTD) 07/25/2009 630 PREGNA NCY HYDATIDIFORM MOLE (MOLAR - NON-METASTATIC GTD) 07/25/2009 630 PREGNA NCY HYDATIDIFORM MOLE (MOLAR - NON-METASTATIC GTD) 07/25/2009 JAMIE DERAS MD 630 HYDATIDIFORM MOLE (MOLAR - NON-METASTATIC GT D) 07/25/2009 JAMIE DERAS MD 630 HYDATIDIFORM MOLE (MOLAR - NON-METASTATIC GT D) 07/25/2009 JAMIE DERAS MD 630 HYDATIDIFORM MOLE (MOLAR - NON-METASTATIC GT D) 07/25/2009 PAT ZAMAN APRN R 6 30 HYDATIDIFORM MOLE (MOLAR - NON-METASTATIC GTD) 07/25/2009 JAMIE DERAS MD 630 HYDATIDIFORM MOLE (MOLAR - NON-METASTATIC GT D) 07/25/2009 JAMIE DERAS MD 630 HYDATIDIFORM MOLE (MOLAR - NON-METASTATIC GT D) 07/25/2009 DAYANA CHAPMAN DO 630 HYDATIDIFORM MOLE (MOLAR - NON-METASTATIC GTD) 07/25/2009 CEZAR BOTANY PROFESSOR, JIMI L 630 HYDATIDIFORM MOLE (MOLAR - NON-METASTATIC GTD) 07/25/2009 MADL BOTANY PROFESSOR, JIMI L 630 HYDATIDIFORM MOLE (MOLAR - NON-METASTATIC GTD) 07/25/2009 CEZAR BOTANY PROFESSOR, JIMI L 630 HYDATIDIFORM MOLE (MOLAR - NON-METASTATIC GTD) 07/25/2009 MADL BOTANY PROFESSOR, JIMI L 630 HYDATIDIFORM MOLE (MOLAR - NON-METASTATIC GTD) 07/25/2009 MADL BOTANY PROFESSOR, JIMI L 630 HYDATIDIFORM MOLE (MOLAR - NON-METASTATIC GTD) 07/25/2009 CEZAR BOTANY PROFESSOR, JIMI L 630 HYDATIDIFORM MOLE (MOLAR - NON-METASTATIC GTD) 07/25/2009 CEZAR MITCHELL, JIMI L 630 HYDATIDIFORM MOLE (MOLAR - NON-METASTATIC GTD) 07/25/2009 ADELA CLARK DAYANA K 630 HYDATIDIFORM MOLE (MOLAR - NON-METASTATIC GTD) 07/25/2009 ADELA CLARK DAYANA K 630 HYDATIDIFORM MOLE (MOLAR - NON-METASTATIC GTD) 07/25/2009 AEDLA CLARK DAYANA K 630 HYDATIDIFORM MOLE (MOLAR - NON-METASTATIC GTD) 07/25/2009 CEZAR MITCHELL JIMI L 630 HYDATIDIFORM MOLE (MOLAR - NON-METASTATIC GTD) 07/25/2009 ADELA CLARK DAYANA K 630 HYDATIDIFORM MOLE (MOLAR - NON-METASTATIC GTD) 07/25/2009 ADELA CLARK DAYANA K 630 HYDATIDIFORM MOLE (MOLAR - NON-METASTATIC GTD) 07/25/2009 CEZAR BOTANY PROFESSOR, JIMI L 630 HYDATIDIFORM MOLE (MOLAR - NON-METASTATIC GTD) 07/25/2009 CEZAR MITCHELL JIMI L 630 HYDATIDIFORM MOLE (MOLAR - NON-METASTATIC GTD) 07/25/2009 CEZAR MITCHELL JIMI L 630 HYDATIDIFORM MOLE (MOLAR - NON-METASTATIC GTD) 07/25/2009 CEZAR MITCHELL JIMI L 630 HYDATIDIFORM MOLE (MOLAR - NON-METASTATIC GTD) 07/25/2009 CEZAR BOTANY PROFESSOR, JIMI L 630 HYDATIDIFORM MOLE (MOLAR - NON-METASTATIC GTD) 07/25/2009 ALEX BOTANY PROFESSOR, JIMI L 630 HYDATIDIFORM MOLE (MOLAR - NON-METASTATIC GTD) 07/25/2009 ALEX BOTANY PROFESSOR, JIMI L 630 HYDATIDIFORM MOLE (MOLAR - NON-METASTATIC GTD) 07/25/2009 ALEX BOTANY PROFESSOR, JIMI L 630 HYDATIDIFORM MOLE (MOLAR - NON-METASTATIC GTD) 07/25/2009 ALEX BOTANY PROFESSOR, JIMI L 630 HYDATIDIFORM MOLE (MOLAR - NON-METASTATIC GTD) 07/25/2009 [facility] BOTANY PROFESSOR, JIMI L 630 HYDATIDIFORM MOLE (MOLAR - NON-METASTATIC GTD) 07/25/2009 ALEX BOTANY PROFESSOR, JIMI L 630 HYDATIDIFORM MOLE (MOLAR - NON-METASTATIC GTD) 07/25/2009 [facility] BOTANY PROFESSOR, JIMI L 630 HYDATIDIFORM MOLE (MOLAR - NON-METASTATIC GTD) 07/25/2009 [facility] BOTANY PROFESSOR, JIMI L 630 HYDATIDIFORM MOLE (MOLAR - NON-METASTATIC GTD) 07/25/2009 [facility] BOTANY PROFESSOR, JIMI L 630 HYDATIDIFORM MOLE (MOLAR - NON-METASTATIC GTD) 07/25/2009 [facility] BOTANY PROFESSOR, JIMI L 630 HYDATIDIFORM MOLE (MOLAR - NON-METASTATIC GTD) 07/25/2009 [facility] BOTANY PROFESSOR, JIMI L 630 HYDATIDIFORM MOLE (MOLAR - NON-METASTATIC GTD) 11/28/2009 Ot 181 11/28/2009 Ot 462 11/28/2009 Ot 788.99 11/28/2009 Ot V58.11 01/04/2010 346.90 GERALD MOSES UNSPECIFIED WITHOUT INTRACTABLE MIGRAINE 01/04/2010 DANAE RIVERA MD 346. 90 MIGRAINE UNSPECIFIED WITHOUT INTRACTABLE MIGRAINE 01/04/2010 JAMIE DERAS MD 346.90 MIGRAINE UNSPECIFIED WITHOUT INTRACTABLE MIGRAINE 01/04/2010 NED PAYNE, CELESTE 346.9 0 MIGRAINE UNSPECIFIED WITHOUT INTRACTABLE MIGRAINE 01/04/2010 346.90 GERALD MOSES UNSPECIFIED WITHOUT INTRACTABLE MIGRAINE 01/04/2010 JAMIE DERAS MD 346.90 MIGRAINE UNSPECIFIED WITHOUT INTRACTABLE MIGRAINE 01/04/2010 JAMIE DERAS MD 346.90 MIGRAINE UNSPECIFIED WITHOUT INTRACTABLE MIGRAINE 01/04/2010 JAMIE DERAS MD 346.90 MIGRAINE UNSPECIFIED WITHOUT INTRACTABLE MIGRAINE 01/04/2010 JAMIE DERAS MD 346.90 MIGRAINE UNSPECIFIED WITHOUT INTRACTABLE MIGRAINE 01/04/2010 346.90 GERALD MOSES UNSPECIFIED WITHOUT INTRACTABLE MIGRAINE 01/04/2010 346.90 GERALD MOSES UNSPECIFIED WITHOUT INTRACTABLE MIGRAINE 01/04/2010 346.90 GERALD MOSES UNSPECIFIED WITHOUT INTRACTABLE MIGRAINE 01/04/2010 346.90 GERALD MOSES UNSPECIFIED WITHOUT INTRACTABLE MIGRAINE 01/04/2010 346.90 GERALD MOSES UNSPECIFIED WITHOUT INTRACTABLE MIGRAINE 01/04/2010 346.90 GERALD MOSES UNSPECIFIED WITHOUT INTRACTABLE MIGRAINE 01/04/2010 346.90 GERALD MOSES UNSPECIFIED WITHOUT INTRACTABLE MIGRAINE 01/04/2010 346.90 GERALD MOSES UNSPECIFIED WITHOUT INTRACTABLE MIGRAINE 01/04/2010 346.90 GERALD MOSES UNSPECIFIED WITHOUT INTRACTABLE MIGRAINE 01/04/2010 346.90 GERALD MOSES UNSPECIFIED WITHOUT INTRACTABLE MIGRAINE 01/04/2010 346.90 GERALD MOSES UNSPECIFIED WITHOUT INTRACTABLE MIGRAINE 01/04/2010 346.90 GERALD MOSES UNSPECIFIED WITHOUT INTRACTABLE MIGRAINE 01/04/2010 JAMIE DERAS MD 346.90 MIGRAINE UNSPECIFIED WITHOUT INTRACTABLE MIGRAINE 01/04/2010 JAMIE DERAS MD 346.90 MIGRAINE UNSPECIFIED WITHOUT INTRACTABLE MIGRAINE 01/04/2010 JAMIE DERAS MD 346.90 MIGRAINE UNSPECIFIED WITHOUT INTRACTABLE MIGRAINE 01/04/2010 JUNIE BOTANY PROFESSOR, PAT R 346.90 MIGRAINE UNSPECIFIED WITHOUT INTRACTABLE MIGRAINE 01/04/2010 JAMIE DERAS MD 346.90 MIGRAINE UNSPECIFIED WITHOUT INTRACTABLE MIGRAINE 01/04/2010 JAMIE DERAS MD 346.90 MIGRAINE UNSPECIFIED WITHOUT INTRACTABLE MIGRAINE 01/04/2010 DAYANA CHAPMAN DO K 346.90 MIGRAINE UNSPECIFIED WITHOUT INTRACTABLE MIGRAINE 01/04/2010 MADL BOTANY PROFESSOR, JIMI L 346 .90 MIGRAINE UNSPECIFIED WITHOUT INTRACTABLE MIGRAINE 01/04/2010 MADL BOTANY PROFESSOR, JIMI L 346 .90 MIGRAINE UNSPECIFIED WITHOUT INTRACTABLE MIGRAINE 01/04/2010 MADL BOTANY PROFESSOR, JIMI L 346 .90 MIGRAINE UNSPECIFIED WITHOUT INTRACTABLE MIGRAINE 01/04/2010 MADL BOTANY PROFESSOR, JIMI L 346 .90 MIGRAINE UNSPECIFIED WITHOUT INTRACTABLE MIGRAINE 01/04/2010 MADL BOTANY PROFESSOR, JIMI L 346 .90 MIGRAINE UNSPECIFIED WITHOUT INTRACTABLE MIGRAINE 01/04/2010 MADL BOTANY PROFESSOR, JIMI L 346 .90 MIGRAINE UNSPECIFIED WITHOUT INTRACTABLE MIGRAINE 01/04/2010 MADL BOTANY PROFESSOR, JIMI L 346 .90 MIGRAINE UNSPECIFIED WITHOUT INTRACTABLE MIGRAINE 01/04/2010 CHAPMAN DO, DAYANA K 346.90 MIGRAINE UNSPECIFIED WITHOUT INTRACTABLE MIGRAINE 01/04/2010 CHAPMAN DO, DAYANA K 346.90 MIGRAINE UNSPECIFIED WITHOUT INTRACTABLE MIGRAINE 01/04/2010 CHAPMAN DO, DAYANA K 346.90 MIGRAINE UNSPECIFIED WITHOUT INTRACTABLE MIGRAINE 01/04/2010 MADL BOTANY PROFESSOR, JIMI L 346 .90 MIGRAINE UNSPECIFIED WITHOUT INTRACTABLE MIGRAINE 01/04/2010 CHAPMAN DO, DAYANA K 346.90 MIGRAINE UNSPECIFIED WITHOUT INTRACTABLE MIGRAINE 01/04/2010 CHAPMAN DO, DAYANA K 346.90 MIGRAINE UNSPECIFIED WITHOUT INTRACTABLE MIGRAINE 01/04/2010 MADL BOTANY PROFESSOR, JIMI L 346 .90 MIGRAINE UNSPECIFIED WITHOUT INTRACTABLE MIGRAINE 01/04/2010 MADL BOTANY PROFESSOR, JIMI L 346 .90 MIGRAINE UNSPECIFIED WITHOUT INTRACTABLE MIGRAINE 01/04/2010 MADL BOTANY PROFESSOR, JIMI L 346 .90 MIGRAINE UNSPECIFIED WITHOUT INTRACTABLE MIGRAINE 01/04/2010 MADL BOTANY PROFESSOR, JIMI L 346 .90 MIGRAINE UNSPECIFIED WITHOUT INTRACTABLE MIGRAINE 01/04/2010 MADL BOTANY PROFESSOR, JIMI L 346 .90 MIGRAINE UNSPECIFIED WITHOUT INTRACTABLE MIGRAINE 01/04/2010 MADL BOTANY PROFESSOR, JIMI L 346 .90 MIGRAINE UNSPECIFIED WITHOUT INTRACTABLE MIGRAINE 01/04/2010 MADL BOTANY PROFESSOR, JIMI L 346 .90 MIGRAINE UNSPECIFIED WITHOUT INTRACTABLE MIGRAINE 01/04/2010 MADL BOTANY PROFESSOR, JIMI L 346 .90 MIGRAINE UNSPECIFIED WITHOUT INTRACTABLE MIGRAINE 01/04/2010 MADL BOTANY PROFESSOR, JIMI L 346 .90 MIGRAINE UNSPECIFIED WITHOUT INTRACTABLE MIGRAINE 01/04/2010 MADL BOTANY PROFESSOR, JIMI L 346 .90 MIGRAINE UNSPECIFIED WITHOUT INTRACTABLE MIGRAINE 01/04/2010 MADL BOTANY PROFESSOR, JIMI L 346 .90 MIGRAINE UNSPECIFIED WITHOUT INTRACTABLE MIGRAINE 01/04/2010 MADL BOTANY PROFESSOR, JIMI L 346 .90 MIGRAINE UNSPECIFIED WITHOUT INTRACTABLE MIGRAINE 01/04/2010 MADL BOTANY PROFESSORJIMI Mendoza 346 .90 MIGRAINE UNSPECIFIED WITHOUT INTRACTABLE MIGRAINE 01/04/2010 ALEX BOTANY PROFESSORJIMI Mendoza L 346 .90 MIGRAINE UNSPECIFIED WITHOUT INTRACTABLE MIGRAINE 01/04/2010 MAD BOTANY PROFESSORJIMI Mendoza L 346 .90 MIGRAINE UNSPECIFIED WITHOUT INTRACTABLE MIGRAINE 01/04/2010 MADL BOTANY PROFESSORJIMI Mendoza 346 .90 MIGRAINE UNSPECIFIED WITHOUT INTRACTABLE MIGRAINE 01/06/2010 Ot 784.0 01/09/2010 780.4 DIZZ INESS AND VERTIGO 01/09/2010 784.0 HEADACHE 01/09/2010 787.02 RADHA SEA ALONE 01/09/2010 DANAE RIVERA MD 780. 4 DIZZINESS AND VERTIGO 01/09/2010 DANAE RIVERA MD 784. 0 HEADACHE 01/09/2010 DANAE RIVERA MD 787. 02 NAUSEA ALONE 01/09/2010 JAMIE DERAS MD 780.4 DIZZINESS AND VERTIGO 01/09/2010 JAMIE DERAS MD 784.0 HEADACHE 01/09/2010 JAMIE DERAS MD 787.02 NAUSEA ALONE 01/09/2010 CELESTE MARINO MD 780.4 DIZZINESS AND VERTIGO 01/09/2010 CELESTE MARINO MD 784.0 HEADACHE 01/09/2010 CELESTE MARINO MD 787.0 2 NAUSEA ALONE 01/09/2010 780.4 DIZZ INESS AND VERTIGO 01/09/2010 784.0 HEADACHE 01/09/2010 787.02 RADHA SEA ALONE 01/09/2010 JAMIE DERAS MD 780.4 DIZZINESS [...] JAMIE DERAS MD 787.02 NAUSEA ALONE 01/09/2010 BRAEDEN PAYNE, JAMIE Swift 780.4 DIZZINESS AND VERTIGO 01/09/2010 BRAEDEN PAYNE, JAMIE Swift 784.0 HEADACHE 01/09/2010 JAMIE DERAS MD 787.02 NAUSEA ALONE 01/09/2010 780.4 DIZZ INESS AND VERTIGO 01/09/2010 784.0 HEADACHE 01/09/2010 787.02 RADHA SEA ALONE 01/09/2010 780.4 DIZZ INESS AND VERTIGO 01/09/2010 784.0 HEADACHE 01/09/2010 787.02 RADHA SEA ALONE 01/09/2010 780.4 DIZZ INESS AND VERTIGO 01/09/2010 784.0 HEADACHE 01/09/2010 787.02 RADHA SEA ALONE 01/09/2010 780.4 DIZZ INESS AND VERTIGO 01/09/2010 784.0 HEADACHE 01/09/2010 787.02 RADHA SEA ALONE 01/09/2010 780.4 DIZZ INESS AND VERTIGO 01/09/2010 784.0 HEADACHE 01/09/2010 787.02 RADHA SEA ALONE 01/09/2010 780.4 DIZZ INESS AND VERTIGO 01/09/2010 784.0 HEADACHE 01/09/2010 787.02 RADHA SEA ALONE 01/09/2010 780.4 DIZZ INESS AND VERTIGO 01/09/2010 784.0 HEADACHE 01/09/2010 787.02 RADHA SEA ALONE 01/09/2010 780.4 DIZZ INESS AND VERTIGO 01/09/2010 784.0 HEADACHE 01/09/2010 787.02 RADHA SEA ALONE 01/09/2010 780.4 DIZZ INESS AND VERTIGO 01/09/2010 784.0 HEADACHE 01/09/2010 787.02 RADHA SEA ALONE 01/09/2010 780.4 DIZZ INESS AND VERTIGO 01/09/2010 784.0 HEADACHE 01/09/2010 787.02 RADHA SEA ALONE 01/09/2010 780.4 DIZZ INESS AND VERTIGO 01/09/2010 784.0 HEADACHE 01/09/2010 787.02 RADHA SEA ALONE 01/09/2010 780.4 DIZZ INESS AND VERTIGO 01/09/2010 784.0 HEADACHE 01/09/2010 787.02 RADHA SEA ALONE 01/09/2010 JAMIE DERAS MD 780.4 DIZZINESS [...] DERAS MD 787.02 NAUSEA ALONE 01/09/2010 JUNIE BOTANY PROFESSOR, PAT R 780.4 DIZZINESS AND VERTIGO 01/09/2010 JUINE BOTANY PROFESSOR, PAT R 784.0 HEADACHE 01/09/2010 JUNIE BOTANY PROFESSOR, PAT R 787.02 NAUSEA ALONE 01/09/2010 JAMIE [...] DAYANA K 787.02 NAUSEA ALONE 01/09/2010 MADL BOTANY PROFESSOR, JIMI L 780 .4 DIZZINESS AND VERTIGO 01/09/2010 MADL BOTANY PROFESSOR JIMI L 784 .0 HEADACHE 01/09/2010 MADL BOTANY PROFESSOR, JIMI L 787 .02 NAUSEA ALONE 01/09/2010 MADL BOTANY PROFESSOR, JIMI L 780 .4 DIZZINESS AND VERTIGO 01/09/2010 MADL BOTANY PROFESSOR, JIMI L 784 .0 HEADACHE 01/09/2010 ALEXL BOTANY PROFESSOR, JIMI L 787 .02 NAUSEA ALONE 01/09/2010 MADL BOTANY PROFESSOR, JIMI L 780 .4 DIZZINESS AND VERTIGO 01/09/2010 MADL BOTANY PROFESSOR, JIMI L 784 .0 HEADACHE 01/09/2010 MADL BOTANY PROFESSOR, JIMI L 787 .02 NAUSEA ALONE 01/09/2010 MADL BOTANY PROFESSOR, JIMI L 780 .4 DIZZINESS AND VERTIGO 01/09/2010 MADL BOTANY PROFESSOR, JIMI L 784 .0 HEADACHE 01/09/2010 MADL BOTANY PROFESSOR, JIMI L 787 .02 NAUSEA ALONE 01/09/2010 MADL BOTANY PROFESSOR, JIMI L 780 .4 DIZZINESS AND VERTIGO 01/09/2010 MADL BOTANY PROFESSOR, JIMI L 784 .0 HEADACHE 01/09/2010 MADL BOTANY PROFESSOR, JIMI L 787 .02 NAUSEA ALONE 01/09/2010 MADL BOTANY PROFESSOR, JIMI L 780 .4 DIZZINESS AND VERTIGO 01/09/2010 MADL BOTANY PROFESSOR, JIMI L 784 .0 HEADACHE 01/09/2010 MADL BOTANY PROFESSOR, JIMI L 787 .02 NAUSEA ALONE 01/09/2010 ALEXL BOTANY PROFESSOR, JIMI L 780 .4 DIZZINESS AND VERTIGO 01/09/2010 ALEXL SONIA MITCHELLNYA L 784 .0 HEADACHE 01/09/2010 ALEXL BOTANY PROFESSORSONIA MendozaNYA L 787 .02 NAUSEA ALONE 01/09/2010 CHAPMAN DO, DAYANA K [...] DAYANA K 787.02 NAUSEA ALONE 01/09/2010 MADL BOTANY PROFESSOR, JIMI L 780 .4 DIZZINESS AND VERTIGO 01/09/2010 MADL BOTANY PROFESSOR, JIMI L 784 .0 HEADACHE 01/09/2010 MADL BOTANY PROFESSOR, JIMI L 787 .02 NAUSEA ALONE 01/09/2010 CHAPMAN DO, DAYANA K 780.4 DIZZINESS AND VERTIGO 01/09/2010 CHAPMAN DO, DAYANA K 784.0 HEADACHE 01/09/2010 CHAPMAN DO, DAYANA K 787.02 NAUSEA ALONE 01/09/2010 CHAPMAN DO, DAYANA K 780.4 DIZZINESS AND VERTIGO 01/09/2010 CHAPMAN DO, DAYANA K 784.0 HEADACHE 01/09/2010 CHAPMAN DO, DAYANA K 787.02 NAUSEA ALONE 01/09/2010 MADL BOTANY PROFESSOR, JIMI L 780 .4 DIZZINESS AND VERTIGO 01/09/2010 MADL BOTANY PROFESSOR, JIMI L 784 .0 HEADACHE 01/09/2010 MADL BOTANY PROFESSOR, JIMI L 787 .02 NAUSEA ALONE 01/09/2010 MADL BOTANY PROFESSOR, JIMI L 780 .4 DIZZINESS AND VERTIGO 01/09/2010 MADL BOTANY PROFESSOR, JIMI L 784 .0 HEADACHE 01/09/2010 MADL BOTANY PROFESSOR, JIMI L 787 .02 NAUSEA ALONE 01/09/2010 MADL BOTANY PROFESSOR, JIMI L 780 .4 DIZZINESS AND VERTIGO 01/09/2010 MADL BOTANY PROFESSOR, JIMI L 784 .0 HEADACHE 01/09/2010 MADL BOTANY PROFESSOR, JIMI L 787 .02 NAUSEA ALONE 01/09/2010 MADL BOTANY PROFESSOR, JIMI L 780 .4 DIZZINESS AND VERTIGO 01/09/2010 MADL BOTANY PROFESSOR, JIMI L 784 .0 HEADACHE 01/09/2010 MADL BOTANY PROFESSOR, JIMI L 787 .02 NAUSEA ALONE 01/09/2010 MADL BOTANY PROFESSOR, JIMI L 780 .4 DIZZINESS AND VERTIGO 01/09/2010 MADL BOTANY PROFESSOR, JIMI L 784 .0 HEADACHE 01/09/2010 MADL BOTANY PROFESSOR, JIMI L 787 .02 NAUSEA ALONE 01/09/2010 MADL BOTANY PROFESSOR, JIMI L 780 .4 DIZZINESS AND VERTIGO 01/09/2010 MADL BOTANY PROFESSOR, JIMI L 784 .0 HEADACHE 01/09/2010 MADL BOTANY PROFESSOR, JIMI L 787 .02 NAUSEA ALONE 01/09/2010 MADL BOTANY PROFESSOR, JIMI L 780 .4 DIZZINESS AND VERTIGO 01/09/2010 MADL BOTANY PROFESSOR, JIMI L 784 .0 HEADACHE 01/09/2010 MADL BOTANY PROFESSOR, JIMI L 787 .02 NAUSEA ALONE 01/09/2010 MADL BOTANY PROFESSOR, JIMI L 780 .4 DIZZINESS AND VERTIGO 01/09/2010 MADL BOTANY PROFESSOR, JIMI L 784 .0 HEADACHE 01/09/2010 MADL BOTANY PROFESSOR, JIMI L 787 .02 NAUSEA ALONE 01/09/2010 MADL BOTANY PROFESSOR, JIMI L 780 .4 DIZZINESS AND VERTIGO 01/09/2010 MADL BOTANY PROFESSOR, JIMI L 784 .0 HEADACHE 01/09/2010 MADL BOTANY PROFESSOR, JIMI L 787 .02 NAUSEA ALONE 01/09/2010 MADL BOTANY PROFESSOR, JIMI L 780 .4 DIZZINESS AND VERTIGO 01/09/2010 MADL BOTANY PROFESSOR, JIMI L 784 .0 HEADACHE 01/09/2010 MADL BOTANY PROFESSOR, JIMI L 787 .02 NAUSEA ALONE 01/09/2010 MADL BOTANY PROFESSOR, JIMI L 780 .4 DIZZINESS AND VERTIGO 01/09/2010 MADL BOTANY PROFESSOR, JIMI L 784 .0 HEADACHE 01/09/2010 MADL BOTANY PROFESSOR, JIMI L 787 .02 NAUSEA ALONE 01/09/2010 MADL BOTANY PROFESSOR, JIMI L 780 .4 DIZZINESS AND VERTIGO 01/09/2010 MADL BOTANY PROFESSOR, JIMI L 784 .0 HEADACHE 01/09/2010 MADL BOTANY PROFESSOR, JIMI L 787 .02 NAUSEA ALONE 01/09/2010 MADL BOTANY PROFESSOR, JIMI L 780 .4 DIZZINESS AND VERTIGO 01/09/2010 MADL BOTANY PROFESSOR, JIMI L 784 .0 HEADACHE 01/09/2010 MADL BOTANY PROFESSOR, JIMI L 787 .02 NAUSEA ALONE 01/09/2010 MADL BOTANY PROFESSOR, JIMI L 780 .4 DIZZINESS AND VERTIGO 01/09/2010 MADL BOTANY PROFESSOR, JIMI L 784 .0 HEADACHE 01/09/2010 MADL BOTANY PROFESSOR, JIMI L 787 .02 NAUSEA ALONE 01/09/2010 MADL BOTANY PROFESSOR, JIMI L 780 .4 DIZZINESS AND VERTIGO 01/09/2010 MADL BOTANY PROFESSOR, JIMI L 784 .0 HEADACHE 01/09/2010 MADL BOTANY PROFESSOR, JIMI L 787 .02 NAUSEA ALONE 01/09/2010 MADL BOTANY PROFESSOR, JIMI L 780 .4 DIZZINESS AND VERTIGO 01/09/2010 MADL BOTANY PROFESSOR, JIMI L 784 .0 HEADACHE 01/09/2010 MADL BOTANY PROFESSOR, JIMI L 787 .02 NAUSEA ALONE 01/15/2010 Ot 041.3 01/15/2010 Ot 348.2 01/15/2010 Ot 368.2 01/15/2010 Ot 368.8 01/15/2010 Ot 599.0 01/15/2010 Ot 784.0 01/15/2010 Ot 790.6 01/15/2010 Ot E932.2 01/15/2010 Ot V10.44 01/15/2010 Ot V13.8 01/15/2010 Ot V87.41 01/23/2010 348.2 IDIO PATHIC INTRACRANIAL HYPERTENSION (PSEUDOTUMOR CEREBRI) 01/23/2010 377.01 PAP ILLEDEMA ASSOCIATED WITH INCREASED INTRACRANIAL PRESSURE 01/23/2010 DANAE RIVERA MD 348. 2 IDIOPATHIC INTRACRANIAL HYPERTENSION (PSEUDOTUMOR CEREBRI) 01/23/2010 DANAE RIVERA MD 377. 01 PAPILLEDEMA ASSOCIATED WITH INCREASED INTRACRANIAL PRESSURE 01/23/2010 JAMIE DERAS MD 348.2 IDIOPATHIC INTRACRANIAL HYPERTENSION (PSEUDOTUMOR CERE JONAS) 01/23/2010 JAMIE DERAS MD 377.01 PAPILLEDEMA ASSOCIATED WITH INCREASED INTRACRANIAL PRE SSURE 01/23/2010 CELESTE MARINO MD 348.2 IDIOPATHIC INTRACRANIAL HYPERTENSION (PSEUDOTUMOR CEREBRI) 01/23/2010 CELESTE MARINO MD 377.0 1 PAPILLEDEMA ASSOCIATED WITH INCREASED INTRACRANIAL PRESSURE 01/23/2010 348.2 IDIO PATHIC INTRACRANIAL HYPERTENSION (PSEUDOTUMOR CEREBRI) 01/23/2010 377.01 PAP ILLEDEMA ASSOCIATED WITH INCREASED INTRACRANIAL PRESSURE 01/23/2010 JAMIE DERAS MD 348.2 IDIOPATHIC INTRACRANIAL HYPERTENSION (PSEUDOTUMOR CERE JONAS) 01/23/2010 JAMIE DERAS MD 377.01 PAPILLEDEMA ASSOCIATED WITH INCREASED INTRACRANIAL PRE SSURE 01/23/2010 JAMIE DERAS MD 348.2 IDIOPATHIC INTRACRANIAL HYPERTENSION (PSEUDOTUMOR CERE JONAS) 01/23/2010 JAMIE DERAS MD 377.01 PAPILLEDEMA ASSOCIATED WITH INCREASED INTRACRANIAL PRE SSURE 01/23/2010 JAMIE DERAS MD 348.2 IDIOPATHIC INTRACRANIAL HYPERTENSION (PSEUDOTUMOR CERE JONAS) 01/23/2010 JAMIE DERAS MD 377.01 PAPILLEDEMA ASSOCIATED WITH INCREASED INTRACRANIAL PRE SSURE 01/23/2010 JAMIE DERAS MD 348.2 IDIOPATHIC INTRACRANIAL HYPERTENSION (PSEUDOTUMOR CERE JONAS) 01/23/2010 JAMIE DERAS MD 377.01 PAPILLEDEMA ASSOCIATED WITH INCREASED INTRACRANIAL PRE SSURE 01/23/2010 348.2 IDIO PATHIC INTRACRANIAL HYPERTENSION (PSEUDOTUMOR CEREBRI) 01/23/2010 377.01 PAP ILLEDEMA ASSOCIATED WITH INCREASED INTRACRANIAL PRESSURE 01/23/2010 348.2 IDIO PATHIC INTRACRANIAL HYPERTENSION (PSEUDOTUMOR CEREBRI) 01/23/2010 377.01 PAP ILLEDEMA ASSOCIATED WITH INCREASED INTRACRANIAL PRESSURE 01/23/2010 348.2 IDIO PATHIC INTRACRANIAL HYPERTENSION (PSEUDOTUMOR CEREBRI) 01/23/2010 377.01 PAP ILLEDEMA ASSOCIATED WITH INCREASED INTRACRANIAL PRESSURE 01/23/2010 348.2 IDIO PATHIC INTRACRANIAL HYPERTENSION (PSEUDOTUMOR CEREBRI) 01/23/2010 377.01 PAP ILLEDEMA ASSOCIATED WITH INCREASED INTRACRANIAL PRESSURE 01/23/2010 348.2 IDIO PATHIC INTRACRANIAL HYPERTENSION (PSEUDOTUMOR CEREBRI) 01/23/2010 377.01 PAP ILLEDEMA ASSOCIATED WITH INCREASED INTRACRANIAL PRESSURE 01/23/2010 348.2 IDIO PATHIC INTRACRANIAL HYPERTENSION (PSEUDOTUMOR CEREBRI) 01/23/2010 377.01 PAP ILLEDEMA ASSOCIATED WITH INCREASED INTRACRANIAL PRESSURE 01/23/2010 348.2 IDIO PATHIC INTRACRANIAL HYPERTENSION (PSEUDOTUMOR CEREBRI) 01/23/2010 377.01 PAP ILLEDEMA ASSOCIATED WITH INCREASED INTRACRANIAL PRESSURE 01/23/2010 348.2 IDIO PATHIC INTRACRANIAL HYPERTENSION (PSEUDOTUMOR CEREBRI) 01/23/2010 377.01 PAP ILLEDEMA ASSOCIATED WITH INCREASED INTRACRANIAL PRESSURE 01/23/2010 348.2 IDIO PATHIC INTRACRANIAL HYPERTENSION (PSEUDOTUMOR CEREBRI) 01/23/2010 377.01 PAP ILLEDEMA ASSOCIATED WITH INCREASED INTRACRANIAL PRESSURE 01/23/2010 348.2 IDIO PATHIC INTRACRANIAL HYPERTENSION (PSEUDOTUMOR CEREBRI) 01/23/2010 377.01 PAP ILLEDEMA ASSOCIATED WITH INCREASED INTRACRANIAL PRESSURE 01/23/2010 348.2 IDIO PATHIC INTRACRANIAL HYPERTENSION (PSEUDOTUMOR CEREBRI) 01/23/2010 377.01 PAP ILLEDEMA ASSOCIATED WITH INCREASED INTRACRANIAL PRESSURE 01/23/2010 348.2 IDIO PATHIC INTRACRANIAL HYPERTENSION (PSEUDOTUMOR CEREBRI) 01/23/2010 377.01 PAP ILLEDEMA ASSOCIATED WITH INCREASED INTRACRANIAL PRESSURE 01/23/2010 JAMIE DERAS MD 348.2 IDIOPATHIC INTRACRANIAL HYPERTENSION (PSEUDOTUMOR CERE JONAS) 01/23/2010 JAMIE DERAS MD 377.01 PAPILLEDEMA ASSOCIATED WITH INCREASED INTRACRANIAL PRE SSURE 01/23/2010 JAMIE DERAS MD 348.2 IDIOPATHIC INTRACRANIAL HYPERTENSION (PSEUDOTUMOR CERE JONAS) 01/23/2010 JAMIE DERAS MD 377.01 PAPILLEDEMA ASSOCIATED WITH INCREASED INTRACRANIAL PRE SSURE 01/23/2010 JAMIE DERAS MD 348.2 IDIOPATHIC INTRACRANIAL HYPERTENSION (PSEUDOTUMOR CERE JONAS) 01/23/2010 JAMIE DERAS MD 377.01 PAPILLEDEMA ASSOCIATED WITH INCREASED INTRACRANIAL PRE SSURE 01/23/2010 PAT ZAMAN APRN R 348.2 IDIOPATHIC INTRACRANIAL HYPERTENSION (PSEUDOTUMOR CERE JONAS) 01/23/2010 PAT ZAMAN APRN R 377.01 PAPILLEDEMA ASSOCIATED WITH INCREASED INTRACRANIAL PRE SSURE 01/23/2010 JAMIE DERAS MD 348.2 IDIOPATHIC INTRACRANIAL HYPERTENSION (PSEUDOTUMOR CERE JONAS) 01/23/2010 JAMIE DERAS MD 377.01 PAPILLEDEMA ASSOCIATED WITH INCREASED INTRACRANIAL PRE SSURE 01/23/2010 JAMIE DERAS MD 348.2 IDIOPATHIC INTRACRANIAL HYPERTENSION (PSEUDOTUMOR CERE JONAS) 01/23/2010 JAMIE DERAS MD 377.01 PAPILLEDEMA ASSOCIATED WITH INCREASED INTRACRANIAL PRE SSURE 01/23/2010 CHAPMAN DO DAYANA K 348.2 IDIOPATHIC INTRACRANIAL HYPERTENSION (PSEUDOTUMOR CEREBRI) 01/23/2010 CHAPMAN DO DAYANA K 377.01 PAPILLEDEMA ASSOCIATED WITH INCREASED INTRACRANIAL PRESSURE 01/23/2010 MADL BOTANY PROFESSOR, JIMI L 348 .2 IDIOPATHIC INTRACRANIAL HYPERTENSION (PSEUDOTUMOR CEREBRI) 01/23/2010 MADL BOTANY PROFESSOR, JIMI L 377 .01 PAPILLEDEMA ASSOCIATED WITH INCREASED INTRACRANIAL PRESSURE 01/23/2010 MADL BOTANY PROFESSOR, JIMI L 348 .2 IDIOPATHIC INTRACRANIAL HYPERTENSION (PSEUDOTUMOR CEREBRI) 01/23/2010 MADL BOTANY PROFESSOR, JIMI L 377 .01 PAPILLEDEMA ASSOCIATED WITH INCREASED INTRACRANIAL PRESSURE 01/23/2010 MADL BOTANY PROFESSOR, JIMI L 348 .2 IDIOPATHIC INTRACRANIAL HYPERTENSION (PSEUDOTUMOR CEREBRI) 01/23/2010 MADL BOTANY PROFESSOR, JIMI L 377 .01 PAPILLEDEMA ASSOCIATED WITH INCREASED INTRACRANIAL PRESSURE 01/23/2010 MADL BOTANY PROFESSOR, JIMI L 348 .2 IDIOPATHIC INTRACRANIAL HYPERTENSION (PSEUDOTUMOR CEREBRI) 01/23/2010 MADL BOTANY PROFESSOR, JIMI L 377 .01 PAPILLEDEMA ASSOCIATED WITH INCREASED INTRACRANIAL PRESSURE 01/23/2010 MADL BOTANY PROFESSOR, JIMI L 348 .2 IDIOPATHIC INTRACRANIAL HYPERTENSION (PSEUDOTUMOR CEREBRI) 01/23/2010 MADL BOTANY PROFESSOR, JIMI L 377 .01 PAPILLEDEMA ASSOCIATED WITH INCREASED INTRACRANIAL PRESSURE 01/23/2010 MADL BOTANY PROFESSOR, JIMI L 348 .2 IDIOPATHIC INTRACRANIAL HYPERTENSION (PSEUDOTUMOR CEREBRI) 01/23/2010 MADL BOTANY PROFESSOR, JIMI L 377 .01 PAPILLEDEMA ASSOCIATED WITH INCREASED INTRACRANIAL PRESSURE 01/23/2010 MADL BOTANY PROFESSOR, JIMI L 348 .2 IDIOPATHIC INTRACRANIAL HYPERTENSION (PSEUDOTUMOR CEREBRI) 01/23/2010 MADL BOTANY PROFESSOR, JIMI L 377 .01 PAPILLEDEMA ASSOCIATED WITH INCREASED INTRACRANIAL PRESSURE 01/23/2010 [...] ASSOCIATED WITH INCREASED INTRACRANIAL PRESSURE 01/23/2010 MADL BOTANY PROFESSOR, JIMI L 348 .2 IDIOPATHIC INTRACRANIAL HYPERTENSION (PSEUDOTUMOR CEREBRI) 01/23/2010 MADL BOTANY PROFESSOR, JIMI L 377 .01 PAPILLEDEMA ASSOCIATED WITH INCREASED INTRACRANIAL PRESSURE 01/23/2010 CHAPMAN DO, DAYANA K 348.2 IDIOPATHIC INTRACRANIAL HYPERTENSION (PSEUDOTUMOR CEREBRI) 01/23/2010 CHAPMAN DO, DAYANA K 377.01 PAPILLEDEMA ASSOCIATED WITH INCREASED INTRACRANIAL PRESSURE 01/23/2010 CHAPMAN DO, DAYANA K 348.2 IDIOPATHIC INTRACRANIAL HYPERTENSION (PSEUDOTUMOR CEREBRI) 01/23/2010 CHAPMAN DO, DAYANA K 377.01 PAPILLEDEMA ASSOCIATED WITH INCREASED INTRACRANIAL PRESSURE 01/23/2010 MADL BOTANY PROFESSOR, JIMI L 348 .2 IDIOPATHIC INTRACRANIAL HYPERTENSION (PSEUDOTUMOR CEREBRI) 01/23/2010 MADL BOTANY PROFESSOR, JIMI L 377 .01 PAPILLEDEMA ASSOCIATED WITH INCREASED INTRACRANIAL PRESSURE 01/23/2010 MADL BOTANY PROFESSOR, JIMI L 348 .2 IDIOPATHIC INTRACRANIAL HYPERTENSION (PSEUDOTUMOR CEREBRI) 01/23/2010 MADL BOTANY PROFESSOR, JIMI L 377 .01 PAPILLEDEMA ASSOCIATED WITH INCREASED INTRACRANIAL PRESSURE 01/23/2010 MADL BOTANY PROFESSOR, JIMI L 348 .2 IDIOPATHIC INTRACRANIAL HYPERTENSION (PSEUDOTUMOR CEREBRI) 01/23/2010 MADL BOTANY PROFESSOR, JIMI L 377 .01 PAPILLEDEMA ASSOCIATED WITH INCREASED INTRACRANIAL PRESSURE 01/23/2010 MADL BOTANY PROFESSOR, JIMI L 348 .2 IDIOPATHIC INTRACRANIAL HYPERTENSION (PSEUDOTUMOR CEREBRI) 01/23/2010 MADL BOTANY PROFESSOR, JIMI L 377 .01 PAPILLEDEMA ASSOCIATED WITH INCREASED INTRACRANIAL PRESSURE 01/23/2010 MADL BOTANY PROFESSOR, JIMI L 348 .2 IDIOPATHIC INTRACRANIAL HYPERTENSION (PSEUDOTUMOR CEREBRI) 01/23/2010 MADL BOTANY PROFESSOR, JIMI L 377 .01 PAPILLEDEMA ASSOCIATED WITH INCREASED INTRACRANIAL PRESSURE 01/23/2010 MADL BOTANY PROFESSOR, JIMI L 348 .2 IDIOPATHIC INTRACRANIAL HYPERTENSION (PSEUDOTUMOR CEREBRI) 01/23/2010 MADL BOTANY PROFESSOR, JIMI L 377 .01 PAPILLEDEMA ASSOCIATED WITH INCREASED INTRACRANIAL PRESSURE 01/23/2010 MADL BOTANY PROFESSOR, JIMI L 348 .2 IDIOPATHIC INTRACRANIAL HYPERTENSION (PSEUDOTUMOR CEREBRI) 01/23/2010 MADL BOTANY PROFESSOR, JIMI L 377 .01 PAPILLEDEMA ASSOCIATED WITH INCREASED INTRACRANIAL PRESSURE 01/23/2010 MADL BOTANY PROFESSOR, JIMI L 348 .2 IDIOPATHIC INTRACRANIAL HYPERTENSION (PSEUDOTUMOR CEREBRI) 01/23/2010 MADL BOTANY PROFESSOR, JIMI L 377 .01 PAPILLEDEMA ASSOCIATED WITH INCREASED INTRACRANIAL PRESSURE 01/23/2010 MADL BOTANY PROFESSOR, JIMI L 348 .2 IDIOPATHIC INTRACRANIAL HYPERTENSION (PSEUDOTUMOR CEREBRI) 01/23/2010 MADL BOTANY PROFESSOR, JIMI L 377 .01 PAPILLEDEMA ASSOCIATED WITH INCREASED INTRACRANIAL PRESSURE 01/23/2010 MADL BOTANY PROFESSOR, JIMI L 348 .2 IDIOPATHIC INTRACRANIAL HYPERTENSION (PSEUDOTUMOR CEREBRI) 01/23/2010 MADL BOTANY PROFESSOR, JIMI L 377 .01 PAPILLEDEMA ASSOCIATED WITH INCREASED INTRACRANIAL PRESSURE 01/23/2010 MADL BOTANY PROFESSOR, JIMI L 348 .2 IDIOPATHIC INTRACRANIAL HYPERTENSION (PSEUDOTUMOR CEREBRI) 01/23/2010 MADL BOTANY PROFESSOR, JIMI L 377 .01 PAPILLEDEMA ASSOCIATED WITH INCREASED INTRACRANIAL PRESSURE 01/23/2010 MADL BOTANY PROFESSOR, JIMI L 348 .2 IDIOPATHIC INTRACRANIAL HYPERTENSION (PSEUDOTUMOR CEREBRI) 01/23/2010 MADL BOTANY PROFESSOR, JIMI L 377 .01 PAPILLEDEMA ASSOCIATED WITH INCREASED INTRACRANIAL PRESSURE 01/23/2010 MADL BOTANY PROFESSOR, JIMI L 348 .2 IDIOPATHIC INTRACRANIAL HYPERTENSION (PSEUDOTUMOR CEREBRI) 01/23/2010 MADL BOTANY PROFESSOR, JIMI L 377 .01 PAPILLEDEMA ASSOCIATED WITH INCREASED INTRACRANIAL PRESSURE 01/23/2010 MADL BOTANY PROFESSOR, JIMI L 348 .2 IDIOPATHIC INTRACRANIAL HYPERTENSION (PSEUDOTUMOR CEREBRI) 01/23/2010 MADL BOTANY PROFESSOR, JIMI L 377 .01 PAPILLEDEMA ASSOCIATED WITH INCREASED INTRACRANIAL PRESSURE 01/23/2010 MADL BOTANY PROFESSOR, JIMI L 348 .2 IDIOPATHIC INTRACRANIAL HYPERTENSION (PSEUDOTUMOR CEREBRI) 01/23/2010 MADL BOTANY PROFESSOR, JIMI L 377 .01 PAPILLEDEMA ASSOCIATED WITH INCREASED INTRACRANIAL PRESSURE 01/23/2010 MADL BOTANY PROFESSOR, JIMI L 348 .2 IDIOPATHIC INTRACRANIAL HYPERTENSION (PSEUDOTUMOR CEREBRI) 01/23/2010 MADL BOTANY PROFESSOR, JIMI L 377 .01 PAPILLEDEMA ASSOCIATED WITH INCREASED INTRACRANIAL PRESSURE 02/01/2010 466.0 BRON CHITIS, ACUTE 02/01/2010 MIGUEL PAYNE, DANAE 466. 0 BRONCHITIS, ACUTE 02/01/2010 BRAEDEN PAYNE, JAMIE Swift 466.0 BRONCHITIS, ACUTE 02/01/2010 NED PAYNE, CELESTE 466.0 BRONCHITIS, ACUTE 02/01/2010 466.0 BRON CHITIS, ACUTE 02/01/2010 BRAEDEN PAYNE, JAMIE Swift 466.0 BRONCHITIS, ACUTE 02/01/2010 JAMIE DERAS MD 466.0 BRONCHITIS, ACUTE 02/01/2010 BRAEDEN PAYNE, JAMIE Swift 466.0 BRONCHITIS, ACUTE 02/01/2010 BRAEDEN PAYNE, JAMIE Swift 466.0 BRONCHITIS, ACUTE 02/01/2010 466.0 BRON CHITIS, ACUTE 02/01/2010 466.0 BRON CHITIS, ACUTE 02/01/2010 466.0 BRON CHITIS, ACUTE 02/01/2010 466.0 BRON CHITIS, ACUTE 02/01/2010 466.0 BRON CHITIS, ACUTE 02/01/2010 466.0 BRON CHITIS, ACUTE 02/01/2010 466.0 BRON CHITIS, ACUTE 02/01/2010 466.0 BRON CHITIS, ACUTE 02/01/2010 466.0 BRON CHITIS, ACUTE 02/01/2010 466.0 BRON CHITIS, ACUTE 02/01/2010 466.0 BRON CHITIS, ACUTE 02/01/2010 466.0 BRON CHITIS, ACUTE 02/01/2010 BRAEDEN PAYNE, JAMIE Swift 466.0 BRONCHITIS, ACUTE 02/01/2010 JAMIE DERAS MD 466.0 BRONCHITIS, ACUTE 02/01/2010 JAMIE DERAS MD 466.0 BRONCHITIS, ACUTE 02/01/2010 JUNIE BOTANY PROFESSOR, PAT R 466.0 BRONCHITIS, ACUTE 02/01/2010 JAMIE DERAS MD 466.0 BRONCHITIS, ACUTE 02/01/2010 JAMIE DERAS MD 466.0 BRONCHITIS, ACUTE 02/01/2010 DAYANA CHAPMAN DO K 466.0 BRONCHITIS, ACUTE 02/01/2010 MADL BOTANY PROFESSOR, JIMI L 466 .0 BRONCHITIS, ACUTE 02/01/2010 MADL BOTANY PROFESSOR, JIMI L 466 .0 BRONCHITIS, ACUTE 02/01/2010 MADL BOTANY PROFESSOR, JIMI L 466 .0 BRONCHITIS, ACUTE 02/01/2010 MADL BOTANY PROFESSOR, JIMI L 466 .0 BRONCHITIS, ACUTE 02/01/2010 MADL BOTANY PROFESSOR, JIMI L 466 .0 BRONCHITIS, ACUTE 02/01/2010 MADL BOTANY PROFESSOR, JIMI L 466 .0 BRONCHITIS, ACUTE 02/01/2010 MADL BOTANY PROFESSOR, JIMI L 466 .0 BRONCHITIS, ACUTE 02/01/2010 CHAPMAN DO, DAYANA K 466.0 BRONCHITIS, ACUTE 02/01/2010 CHAPMAN DO, DAYANA K 466.0 BRONCHITIS, ACUTE 02/01/2010 CHAPMAN DO, DAYANA K 466.0 BRONCHITIS, ACUTE 02/01/2010 MADL BOTANY PROFESSOR, JIMI L 466 .0 BRONCHITIS, ACUTE 02/01/2010 CHAPMAN DO, DAYANA K 466.0 BRONCHITIS, ACUTE 02/01/2010 CHAPMAN DO, DAYANA K 466.0 BRONCHITIS, ACUTE 02/01/2010 MADL BOTANY PROFESSOR, JIMI L 466 .0 BRONCHITIS, ACUTE 02/01/2010 MADL BOTANY PROFESSOR, JIMI L 466 .0 BRONCHITIS, ACUTE 02/01/2010 MADL BOTANY PROFESSOR, JIMI L 466 .0 BRONCHITIS, ACUTE 02/01/2010 MADL BOTANY PROFESSOR, JIMI L 466 .0 BRONCHITIS, ACUTE 02/01/2010 MADL BOTANY PROFESSOR, JIMI L 466 .0 BRONCHITIS, ACUTE 02/01/2010 MADL BOTANY PROFESSOR, JIMI L 466 .0 BRONCHITIS, ACUTE 02/01/2010 MADL BOTANY PROFESSOR, JIMI L 466 .0 BRONCHITIS, ACUTE 02/01/2010 MADL BOTANY PROFESSOR, JIMI L 466 .0 BRONCHITIS, ACUTE 02/01/2010 MADL BOTANY PROFESSOR, JIMI L 466 .0 BRONCHITIS, ACUTE 02/01/2010 MADL BOTANY PROFESSOR, JIMI L 466 .0 BRONCHITIS, ACUTE 02/01/2010 MADL BOTANY PROFESSOR, JIMI L 466 .0 BRONCHITIS, ACUTE 02/01/2010 MADL BOTANY PROFESSOR, JIMI L 466 .0 BRONCHITIS, ACUTE 02/01/2010 MADL BOTANY PROFESSOR, JIMI L 466 .0 BRONCHITIS, ACUTE 02/01/2010 MADL BOTANY PROFESSOR, JIMI L 466 .0 BRONCHITIS, ACUTE 02/01/2010 MADL BOTANY PROFESSOR, JIMI L 466 .0 BRONCHITIS, ACUTE 02/01/2010 MADL BOTANY PROFESSOR, JIMI L 466 .0 BRONCHITIS, ACUTE 02/07/2010 511.0 PLEU RISY, WITHOUT MENTION OF EFFUSION OR CURRENT TUBERCULOSIS 02/07/2010 786.2 COUGH 02/07/2010 DANAE RIVERA MD 511. 0 PLEURISY, WITHOUT MENTION OF EFFUSION OR CURRENT TUBERCULOSIS 02/07/2010 DANAE RIVERA MD 786. 2 COUGH 02/07/2010 JAMIE DERAS MD M 511.0 PLEURISY, WITHOUT MENTION OF EFFUSION OR CURRENT TUBER CULOSIS 02/07/2010 JAMIE DERAS MD 786.2 COUGH 02/07/2010 CELESTE MARINO MD 511.0 PLEURISY, WITHOUT MENTION OF EFFUSION OR CURRENT TUBERCULOSIS 02/07/2010 CELESTE MARINO MD 786.2 COUGH 02/07/2010 511.0 PLEU RISY, WITHOUT MENTION OF EFFUSION OR CURRENT TUBERCULOSIS 02/07/2010 786.2 COUGH 02/07/2010 JAMIE DERAS MD M 511.0 PLEURISY, WITHOUT MENTION OF EFFUSION OR CURRENT TUBER CULOSIS 02/07/2010 JAMIE DERAS MD M 786.2 COUGH 02/07/2010 JAMIE DERAS MD M 511.0 PLEURISY, WITHOUT MENTION OF EFFUSION OR CURRENT TUBER CULOSIS 02/07/2010 JAMIE DERAS MD M 786.2 COUGH 02/07/2010 JAMIE DERAS MD M 511.0 PLEURISY, WITHOUT MENTION OF EFFUSION OR CURRENT TUBER CULOSIS 02/07/2010 JAMIE DERAS MD M 786.2 COUGH 02/07/2010 JAMIE DERAS MD M 511.0 PLEURISY, WITHOUT MENTION OF EFFUSION OR CURRENT TUBER CULOSIS 02/07/2010 JAMIE DERAS MD M 786.2 COUGH 02/07/2010 511.0 PLEU RISY, WITHOUT MENTION OF EFFUSION OR CURRENT TUBERCULOSIS 02/07/2010 786.2 COUGH 02/07/2010 511.0 PLEU RISY, WITHOUT MENTION OF EFFUSION OR CURRENT TUBERCULOSIS 02/07/2010 786.2 COUGH 02/07/2010 511.0 PLEU RISY, WITHOUT MENTION OF EFFUSION OR CURRENT TUBERCULOSIS 02/07/2010 786.2 COUGH 02/07/2010 511.0 PLEU RISY, WITHOUT MENTION OF EFFUSION OR CURRENT TUBERCULOSIS 02/07/2010 786.2 COUGH 02/07/2010 511.0 PLEU RISY, WITHOUT MENTION OF EFFUSION OR CURRENT TUBERCULOSIS 02/07/2010 786.2 COUGH 02/07/2010 511.0 PLEU RISY, WITHOUT MENTION OF EFFUSION OR CURRENT TUBERCULOSIS 02/07/2010 786.2 COUGH 02/07/2010 511.0 PLEU RISY, WITHOUT MENTION OF EFFUSION OR CURRENT TUBERCULOSIS 02/07/2010 786.2 COUGH 02/07/2010 511.0 PLEU RISY, WITHOUT MENTION OF EFFUSION OR CURRENT TUBERCULOSIS 02/07/2010 786.2 COUGH 02/07/2010 511.0 PLEU RISY, WITHOUT MENTION OF EFFUSION OR CURRENT TUBERCULOSIS 02/07/2010 786.2 COUGH 02/07/2010 511.0 PLEU RISY, WITHOUT MENTION OF EFFUSION OR CURRENT TUBERCULOSIS 02/07/2010 786.2 COUGH 02/07/2010 511.0 PLEU RISY, WITHOUT MENTION OF EFFUSION OR CURRENT TUBERCULOSIS 02/07/2010 786.2 COUGH 02/07/2010 511.0 PLEU RISY, WITHOUT MENTION OF EFFUSION OR CURRENT TUBERCULOSIS 02/07/2010 786.2 COUGH 02/07/2010 JAMIE DERAS MD M 511.0 PLEURISY, WITHOUT MENTION OF EFFUSION OR CURRENT TUBER CULOSIS 02/07/2010 JAMIE DERAS MD 786.2 COUGH 02/07/2010 JAMIE DERAS MD M 511.0 PLEURISY, WITHOUT MENTION OF EFFUSION OR CURRENT TUBER CULOSIS 02/07/2010 JAMIE DERAS MD M 786.2 COUGH 02/07/2010 JAMIE DERAS MD M 511.0 PLEURISY, WITHOUT MENTION OF EFFUSION OR CURRENT TUBER CULOSIS 02/07/2010 JAMIE DERAS MD M 786.2 COUGH 02/07/2010 JUNIE BOTANY PROFESSOR, PAT R 511.0 PLEURISY, WITHOUT MENTION OF EFFUSION OR CURRENT TUBER CULOSIS 02/07/2010 JUNIE BOTANY PROFESSOR, PAT R 786.2 COUGH 02/07/2010 JAMIE DERAS MD M 511.0 PLEURISY, WITHOUT MENTION OF EFFUSION OR CURRENT TUBER CULOSIS 02/07/2010 JAMIE DERAS MD M 786.2 COUGH 02/07/2010 JAMIE DERAS MD M 511.0 PLEURISY, WITHOUT MENTION OF EFFUSION OR CURRENT TUBER CULOSIS 02/07/2010 BRAEDEN PAYNE, JAMIE Swift 786.2 COUGH 02/07/2010 CHAPMAN DO, DAYANA K 511.0 PLEURISY, WITHOUT MENTION OF EFFUSION OR CURRENT TUBERCULOSIS 02/07/2010 CHAPMAN DO, DAYANA K 786.2 COUGH 02/07/2010 MADL BOTANY PROFESSOR, JIMI L 511 .0 PLEURISY, WITHOUT MENTION OF EFFUSION OR CURRENT TUBERCULOSIS 02/07/2010 MADL BOTANY PROFESSOR, JIMI L 786 .2 COUGH 02/07/2010 MADL BOTANY PROFESSOR, JIMI L 511 .0 PLEURISY, WITHOUT MENTION OF EFFUSION OR CURRENT TUBERCULOSIS 02/07/2010 MADL BOTANY PROFESSOR, JIMI L 786 .2 COUGH 02/07/2010 MADL BOTANY PROFESSOR, JIMI L 511 .0 PLEURISY, WITHOUT MENTION OF EFFUSION OR CURRENT TUBERCULOSIS 02/07/2010 MADL BOTANY PROFESSOR, JIMI L 786 .2 COUGH 02/07/2010 MADL BOTANY PROFESSOR, JIMI L 511 .0 PLEURISY, WITHOUT MENTION OF EFFUSION OR CURRENT TUBERCULOSIS 02/07/2010 MADL BOTANY PROFESSOR, JIMI L 786 .2 COUGH 02/07/2010 MADL BOTANY PROFESSOR, JIMI L 511 .0 PLEURISY, WITHOUT MENTION OF EFFUSION OR CURRENT TUBERCULOSIS 02/07/2010 MADL BOTANY PROFESSOR, JIMI L 786 .2 COUGH 02/07/2010 MADL BOTANY PROFESSOR, JIMI L 511 .0 PLEURISY, WITHOUT MENTION OF EFFUSION OR CURRENT TUBERCULOSIS 02/07/2010 MADL BOTANY PROFESSOR, JIMI L 786 .2 COUGH 02/07/2010 MADL BOTANY PROFESSOR, JIMI L 511 .0 PLEURISY, WITHOUT MENTION OF EFFUSION OR CURRENT TUBERCULOSIS 02/07/2010 MADL BOTANY PROFESSOR, JIMI L 786 .2 COUGH 02/07/2010 CHAPMAN DO, DAYANA K 511.0 [...] DO, DAYANA K 786.2 COUGH 02/07/2010 MADL BOTANY PROFESSOR, JIMI L 511 .0 PLEURISY, WITHOUT MENTION OF EFFUSION OR CURRENT TUBERCULOSIS 02/07/2010 MADL BOTANY PROFESSOR, JIMI L 786 .2 COUGH 02/07/2010 CHAPMAN DO, DAYANA K 511.0 PLEURISY, WITHOUT MENTION OF EFFUSION OR CURRENT TUBERCULOSIS 02/07/2010 CHAPMAN DO, DAYANA K 786.2 COUGH 02/07/2010 CHAPMAN DO, DAYANA K 511.0 PLEURISY, WITHOUT MENTION OF EFFUSION OR CURRENT TUBERCULOSIS 02/07/2010 CHAPMAN DO, DAYANA K 786.2 COUGH 02/07/2010 MADL BOTANY PROFESSOR, JIMI L 511 .0 PLEURISY, WITHOUT MENTION OF EFFUSION OR CURRENT TUBERCULOSIS 02/07/2010 MADL BOTANY PROFESSOR, JIMI L 786 .2 COUGH 02/07/2010 MADL BOTANY PROFESSOR, JIMI L 511 .0 PLEURISY, WITHOUT MENTION OF EFFUSION OR CURRENT TUBERCULOSIS 02/07/2010 MADL BOTANY PROFESSOR, JIMI L 786 .2 COUGH 02/07/2010 MADL BOTANY PROFESSOR, JIMI L 511 .0 PLEURISY, WITHOUT MENTION OF EFFUSION OR CURRENT TUBERCULOSIS 02/07/2010 MADL BOTANY PROFESSOR, JIMI L 786 .2 COUGH 02/07/2010 MADL BOTANY PROFESSOR, JIMI L 511 .0 PLEURISY, WITHOUT MENTION OF EFFUSION OR CURRENT TUBERCULOSIS 02/07/2010 MADL BOTANY PROFESSOR, JIMI L 786 .2 COUGH 02/07/2010 MADL BOTANY PROFESSOR, JIMI L 511 .0 PLEURISY, WITHOUT MENTION OF EFFUSION OR CURRENT TUBERCULOSIS 02/07/2010 MADL BOTANY PROFESSOR, JIMI L 786 .2 COUGH 02/07/2010 MADL BOTANY PROFESSOR, JIMI L 511 .0 PLEURISY, WITHOUT MENTION OF EFFUSION OR CURRENT TUBERCULOSIS 02/07/2010 MADL BOTANY PROFESSOR, JIMI L 786 .2 COUGH 02/07/2010 MADL BOTANY PROFESSOR, JIMI L 511 .0 PLEURISY, WITHOUT MENTION OF EFFUSION OR CURRENT TUBERCULOSIS 02/07/2010 MADL BOTANY PROFESSOR, JIMI L 786 .2 COUGH 02/07/2010 MADL BOTANY PROFESSOR, JIMI L 511 .0 PLEURISY, WITHOUT MENTION OF EFFUSION OR CURRENT TUBERCULOSIS 02/07/2010 MADL BOTANY PROFESSOR, JIMI L 786 .2 COUGH 02/07/2010 MADL BOTANY PROFESSOR, JIMI L 511 .0 PLEURISY, WITHOUT MENTION OF EFFUSION OR CURRENT TUBERCULOSIS 02/07/2010 MADL BOTANY PROFESSOR, JIMI L 786 .2 COUGH 02/07/2010 MADL BOTANY PROFESSOR, JIMI L 511 .0 PLEURISY, WITHOUT MENTION OF EFFUSION OR CURRENT TUBERCULOSIS 02/07/2010 MADL BOTANY PROFESSOR, JIMI L 786 .2 COUGH 02/07/2010 MADL BOTANY PROFESSOR, JIMI L 511 .0 PLEURISY, WITHOUT MENTION OF EFFUSION OR CURRENT TUBERCULOSIS 02/07/2010 MADL BOTANY PROFESSOR, JIMI L 786 .2 COUGH 02/07/2010 MADL BOTANY PROFESSOR, JIMI L 511 .0 PLEURISY, WITHOUT MENTION OF EFFUSION OR CURRENT TUBERCULOSIS 02/07/2010 MADL BOTANY PROFESSOR, JIMI L 786 .2 COUGH 02/07/2010 MADL BOTANY PROFESSOR, JIMI L 511 .0 PLEURISY, WITHOUT MENTION OF EFFUSION OR CURRENT TUBERCULOSIS 02/07/2010 MADL BOTANY PROFESSOR, JIMI L 786 .2 COUGH 02/07/2010 MADL BOTANY PROFESSOR, JIMI L 511 .0 PLEURISY, WITHOUT MENTION OF EFFUSION OR CURRENT TUBERCULOSIS 02/07/2010 MADL BOTANY PROFESSOR, JIMI L 786 .2 COUGH 02/07/2010 MADL BOTANY PROFESSOR, JIMI L 511 .0 PLEURISY, WITHOUT MENTION OF EFFUSION OR CURRENT TUBERCULOSIS 02/07/2010 MADL BOTANY PROFESSOR, JIMI L 786 .2 COUGH 02/07/2010 MADL BOTANY PROFESSOR, JIMI L 511 .0 PLEURISY, WITHOUT MENTION OF EFFUSION OR CURRENT TUBERCULOSIS 02/07/2010 MADL BOTANY PROFESSOR, JIMI L 786 .2 COUGH 03/06/2010 Ot V10.44 03/06/2010 Ot V58.69 [...] V87.41 05/13/2011 462 ACUTE PHARYNGITIS 05/13/2011 465.9 UPPE R RESPIRATORY INFECTION 05/13/2011 MIGUEL PAYNE, DANAE 462 ACUTE PHARYNGITIS 05/13/2011 DANAE RIVERA MD 465. 9 UPPER RESPIRATORY INFECTION 05/13/2011 JAMIE DERAS MD 462 ACUTE PHARYNGITIS 05/13/2011 JAMIE DERAS MD 465.9 UPPER RESPIRATORY INFECTION 05/13/2011 CELESTE MARINO MD 462 ACUTE PHARYNGITIS 05/13/2011 CELESTE MARINO MD 465.9 UPPER RESPIRATORY INFECTION 05/13/2011 462 ACUTE PHARYNGITIS 05/13/2011 465.9 UPPE R RESPIRATORY INFECTION 05/13/2011 JAMIE DERAS MD 462 ACUTE PHARYNGITIS 05/13/2011 JAMIE DERAS MD M 465.9 UPPER RESPIRATORY INFECTION 05/13/2011 JAMIE DERAS MD M 462 ACUTE PHARYNGITIS 05/13/2011 JAMIE DERAS MD 465.9 UPPER RESPIRATORY INFECTION 05/13/2011 JAMIE DERAS MD 462 ACUTE PHARYNGITIS 05/13/2011 JAMIE DERAS MD 465.9 UPPER RESPIRATORY INFECTION 05/13/2011 JAMIE DERAS MD M 462 ACUTE PHARYNGITIS 05/13/2011 JAMIE DERAS MD 465.9 UPPER RESPIRATORY INFECTION 05/13/2011 462 ACUTE PHARYNGITIS 05/13/2011 465.9 UPPE R RESPIRATORY INFECTION 05/13/2011 462 ACUTE PHARYNGITIS 05/13/2011 465.9 UPPE R RESPIRATORY INFECTION 05/13/2011 462 ACUTE PHARYNGITIS 05/13/2011 465.9 UPPE R RESPIRATORY INFECTION 05/13/2011 462 ACUTE PHARYNGITIS 05/13/2011 465.9 UPPE R RESPIRATORY INFECTION 05/13/2011 462 ACUTE PHARYNGITIS 05/13/2011 465.9 UPPE R RESPIRATORY INFECTION 05/13/2011 462 ACUTE PHARYNGITIS 05/13/2011 465.9 UPPE R RESPIRATORY INFECTION 05/13/2011 462 ACUTE PHARYNGITIS 05/13/2011 465.9 UPPE R RESPIRATORY INFECTION 05/13/2011 462 ACUTE PHARYNGITIS 05/13/2011 465.9 UPPE R RESPIRATORY INFECTION 05/13/2011 462 ACUTE PHARYNGITIS 05/13/2011 465.9 UPPE R RESPIRATORY INFECTION 05/13/2011 462 ACUTE PHARYNGITIS 05/13/2011 465.9 UPPE R RESPIRATORY INFECTION 05/13/2011 462 ACUTE PHARYNGITIS 05/13/2011 465.9 UPPE R RESPIRATORY INFECTION 05/13/2011 462 ACUTE PHARYNGITIS 05/13/2011 465.9 UPPE R RESPIRATORY INFECTION 05/13/2011 JAMIE DERAS MD M 462 ACUTE PHARYNGITIS 05/13/2011 JAMIE DERAS MD 465.9 UPPER RESPIRATORY INFECTION 05/13/2011 JAMIE DERAS MD 462 ACUTE PHARYNGITIS 05/13/2011 JAMIE DERAS MD 465.9 UPPER RESPIRATORY INFECTION 05/13/2011 JAMIE DERAS MD M 462 ACUTE PHARYNGITIS 05/13/2011 JAMIE DERAS MD 465.9 UPPER RESPIRATORY INFECTION 05/13/2011 JUNIE BOTANY PROFESSOR, PAT R 4 62 ACUTE PHARYNGITIS 05/13/2011 JUNIE BOTANY PROFESSOR, PAT R 465.9 UPPER RESPIRATORY INFECTION 05/13/2011 JAMIE DERAS MD M 462 ACUTE PHARYNGITIS 05/13/2011 JAMIE DERAS MD 465.9 UPPER RESPIRATORY INFECTION 05/13/2011 JAMIE DERAS MD 462 ACUTE PHARYNGITIS 05/13/2011 YVONNE DERAS MDISTINA M 465.9 UPPER RESPIRATORY INFECTION 05/13/2011 CHAPMAN DO, DAYANA K 462 ACUTE PHARYNGITIS 05/13/2011 CHAPMAN DO, DAYANA K 465.9 UPPER RESPIRATORY INFECTION 05/13/2011 MADL BOTANY PROFESSOR, JIMI L 462 ACUTE PHARYNGITIS 05/13/2011 MADL BOTANY PROFESSOR, JIMI L 465 .9 UPPER RESPIRATORY INFECTION 05/13/2011 MADL BOTANY PROFESSOR, JIMI L 462 ACUTE PHARYNGITIS 05/13/2011 MADL BOTANY PROFESSOR, JIMI L 465 .9 UPPER RESPIRATORY INFECTION 05/13/2011 MADL BOTANY PROFESSOR, JIMI L 462 ACUTE PHARYNGITIS 05/13/2011 MADL BOTANY PROFESSOR, JIMI L 465 .9 UPPER RESPIRATORY INFECTION 05/13/2011 MADL BOTANY PROFESSOR, JIMI L 462 ACUTE PHARYNGITIS 05/13/2011 MADL BOTANY PROFESSOR, JIMI L 465 .9 UPPER RESPIRATORY INFECTION 05/13/2011 MADL BOTANY PROFESSOR, JIMI L 462 ACUTE PHARYNGITIS 05/13/2011 MADL BOTANY PROFESSOR, JIMI L 465 .9 UPPER RESPIRATORY INFECTION 05/13/2011 MADL BOTANY PROFESSOR, JIMI L 462 ACUTE PHARYNGITIS 05/13/2011 MADL BOTANY PROFESSOR, JIMI L 465 .9 UPPER RESPIRATORY INFECTION 05/13/2011 MADL BOTANY PROFESSOR, JIMI L 462 ACUTE PHARYNGITIS 05/13/2011 MADL BOTANY PROFESSOR, JIMI L 465 .9 UPPER RESPIRATORY INFECTION 05/13/2011 CHAPMAN DO, DAYANA K 462 ACUTE PHARYNGITIS 05/13/2011 CHAPMAN DO, DAYANA K 465.9 UPPER RESPIRATORY INFECTION 05/13/2011 CHAPMAN DO, DAYANA K 462 ACUTE PHARYNGITIS 05/13/2011 CHAPMAN DO, DAYANA K 465.9 UPPER RESPIRATORY INFECTION 05/13/2011 CHAPMAN DO, DAYANA K 462 ACUTE PHARYNGITIS 05/13/2011 CHAPMAN DO, DAYANA K 465.9 UPPER RESPIRATORY INFECTION 05/13/2011 MADL BOTANY PROFESSOR, JIMI L 462 ACUTE PHARYNGITIS 05/13/2011 MADL BOTANY PROFESSOR, JIMI L 465 .9 UPPER RESPIRATORY INFECTION 05/13/2011 CHAPMAN DO, DAYANA K 462 ACUTE PHARYNGITIS 05/13/2011 CHAPMAN DO, DAYANA K 465.9 UPPER RESPIRATORY INFECTION 05/13/2011 CHAPMAN DO, DAYANA K 462 ACUTE PHARYNGITIS 05/13/2011 CHAPMAN DO, DAYANA K 465.9 UPPER RESPIRATORY INFECTION 05/13/2011 MADL BOTANY PROFESSOR, JIMI L 462 ACUTE PHARYNGITIS 05/13/2011 MADL BOTANY PROFESSOR, JIMI L 465 .9 UPPER RESPIRATORY INFECTION 05/13/2011 MADL BOTANY PROFESSOR, JIMI L 462 ACUTE PHARYNGITIS 05/13/2011 MADL BOTANY PROFESSOR, JIMI L 465 .9 UPPER RESPIRATORY INFECTION 05/13/2011 MADL BOTANY PROFESSOR, JIMI L 462 ACUTE PHARYNGITIS 05/13/2011 MADL BOTANY PROFESSOR, JIMI L 465 .9 UPPER RESPIRATORY INFECTION 05/13/2011 MADL BOTANY PROFESSOR, JIMI L 462 ACUTE PHARYNGITIS 05/13/2011 MADL BOTANY PROFESSOR, JIMI L 465 .9 UPPER RESPIRATORY INFECTION 05/13/2011 MADL BOTANY PROFESSOR, JIMI L 462 ACUTE PHARYNGITIS 05/13/2011 MADL BOTANY PROFESSOR, JIMI L 465 .9 UPPER RESPIRATORY INFECTION 05/13/2011 MADL BOTANY PROFESSOR, JIMI L 462 ACUTE PHARYNGITIS 05/13/2011 MADL BOTANY PROFESSOR, JIMI L 465 .9 UPPER RESPIRATORY INFECTION 05/13/2011 MADL BOTANY PROFESSOR, JIMI L 462 ACUTE PHARYNGITIS 05/13/2011 MADL BOTANY PROFESSOR, JIMI L 465 .9 UPPER RESPIRATORY INFECTION 05/13/2011 MADL BOTANY PROFESSOR, JIMI L 462 ACUTE PHARYNGITIS 05/13/2011 MADL BOTANY PROFESSOR, JIMI L 465 .9 UPPER RESPIRATORY INFECTION 05/13/2011 MADL BOTANY PROFESSOR, JIMI L 462 ACUTE PHARYNGITIS 05/13/2011 MADL BOTANY PROFESSOR, JIMI L 465 .9 UPPER RESPIRATORY INFECTION 05/13/2011 MADL BOTANY PROFESSOR, JIMI L 462 ACUTE PHARYNGITIS 05/13/2011 MADL BOTANY PROFESSOR, JIMI L 465 .9 UPPER RESPIRATORY INFECTION 05/13/2011 MADL BOTANY PROFESSOR, JIMI L 462 ACUTE PHARYNGITIS 05/13/2011 MADL BOTANY PROFESSOR, JIMI L 465 .9 UPPER RESPIRATORY INFECTION 05/13/2011 MADL BOTANY PROFESSOR, JIMI L 462 ACUTE PHARYNGITIS 05/13/2011 MADL BOTANY PROFESSOR, JIMI L 465 .9 UPPER RESPIRATORY INFECTION 05/13/2011 MADL BOTANY PROFESSOR, JIMI L 462 ACUTE PHARYNGITIS 05/13/2011 MADL BOTANY PROFESSOR, JIMI L 465 .9 UPPER RESPIRATORY INFECTION 05/13/2011 MADL BOTANY PROFESSOR, JIMI L 462 ACUTE PHARYNGITIS 05/13/2011 MADL BOTANY PROFESSOR, JIMI L 465 .9 UPPER RESPIRATORY INFECTION 05/13/2011 MADL BOTANY PROFESSOR, JIMI L 462 ACUTE PHARYNGITIS 05/13/2011 MADL BOTANY PROFESSOR, JIMI L 465 .9 UPPER RESPIRATORY INFECTION 05/13/2011 MADL BOTANY PROFESSOR, JIMI L 462 ACUTE PHARYNGITIS 05/13/2011 MADL BOTANY PROFESSOR, JIMI L 465 .9 UPPER RESPIRATORY INFECTION 06/11/2011 382.00 MEHUL TIS MEDIA ACUTE SUPPURATIVE 06/11/2011 780.60 FEV ER, UNSPECIFIED 06/11/2011 DANAE RIVERA MD 382. 00 OTITIS MEDIA ACUTE SUPPURATIVE 06/11/2011 DANAE RIVERA MD 780. 60 FEVER, UNSPECIFIED 06/11/2011 JAMIE DERAS MD 382.00 OTITIS MEDIA ACUTE SUPPURATIVE 06/11/2011 JAMIE DERAS MD 780.60 FEVER, UNSPECIFIED 06/11/2011 CELESTE MARINO MD 382.0 0 OTITIS MEDIA ACUTE SUPPURATIVE 06/11/2011 CELESTE MARINO MD 780.6 0 FEVER, UNSPECIFIED 06/11/2011 382.00 MEHUL TIS MEDIA ACUTE SUPPURATIVE 06/11/2011 780.60 FEV ER, UNSPECIFIED 06/11/2011 JAMIE DERAS MD 382.00 OTITIS [...] DERAS MD 780.60 FEVER, UNSPECIFIED 06/11/2011 382.00 MEHUL TIS MEDIA ACUTE SUPPURATIVE 06/11/2011 780.60 FEV ER, UNSPECIFIED 06/11/2011 382.00 MEHUL TIS MEDIA ACUTE SUPPURATIVE 06/11/2011 780.60 FEV ER, UNSPECIFIED 06/11/2011 382.00 MEHUL TIS MEDIA ACUTE SUPPURATIVE 06/11/2011 780.60 FEV ER, UNSPECIFIED 06/11/2011 382.00 MEHUL TIS MEDIA ACUTE SUPPURATIVE 06/11/2011 780.60 FEV ER, UNSPECIFIED 06/11/2011 382.00 MEHUL TIS MEDIA ACUTE SUPPURATIVE 06/11/2011 780.60 FEV ER, UNSPECIFIED 06/11/2011 382.00 MEHUL TIS MEDIA ACUTE SUPPURATIVE 06/11/2011 780.60 FEV ER, UNSPECIFIED 06/11/2011 382.00 MEHUL TIS MEDIA ACUTE SUPPURATIVE 06/11/2011 780.60 FEV ER, UNSPECIFIED 06/11/2011 382.00 MEHUL TIS MEDIA ACUTE SUPPURATIVE 06/11/2011 780.60 FEV ER, UNSPECIFIED 06/11/2011 382.00 MEHUL TIS MEDIA ACUTE SUPPURATIVE 06/11/2011 780.60 FEV ER, UNSPECIFIED 06/11/2011 382.00 MEHUL TIS MEDIA ACUTE SUPPURATIVE 06/11/2011 780.60 FEV ER, UNSPECIFIED 06/11/2011 382.00 MEHUL TIS MEDIA ACUTE SUPPURATIVE 06/11/2011 780.60 FEV ER, UNSPECIFIED 06/11/2011 382.00 MEHUL TIS MEDIA ACUTE SUPPURATIVE 06/11/2011 780.60 FEV ER, UNSPECIFIED 06/11/2011 JAMIE DERAS MD 382.00 OTITIS MEDIA ACUTE SUPPURATIVE 06/11/2011 BRAEDEN MD, JAMIE M 780.60 FEVER, UNSPECIFIED 06/11/2011 BRAEDEN PAYNE, JAMIE M 382.00 OTITIS MEDIA ACUTE SUPPURATIVE 06/11/2011 BRAEDEN PAYNE, JAMIE M 780.60 FEVER, UNSPECIFIED 06/11/2011 RBAEDEN PAYNE, JAMIE M 382.00 OTITIS MEDIA ACUTE SUPPURATIVE 06/11/2011 BRAEDEN PAYNE, JAMIE M 780.60 FEVER, UNSPECIFIED 06/11/2011 JUNIE BOTANY PROFESSOR, PAT R 382.00 OTITIS MEDIA ACUTE SUPPURATIVE 06/11/2011 JUNIE BOTANY PROFESSOR, PAT R 780.60 FEVER, UNSPECIFIED 06/11/2011 BRAEDEN PAYNE, JAMIE M 382.00 OTITIS MEDIA ACUTE SUPPURATIVE 06/11/2011 BRAEDEN PAYNE, JAMIE M 780.60 FEVER, UNSPECIFIED 06/11/2011 BRAEDEN PAYNE, JAMIE M 382.00 OTITIS MEDIA ACUTE SUPPURATIVE 06/11/2011 BRAEDEN PAYNE, JAMIE M 780.60 FEVER, UNSPECIFIED 06/11/2011 CHAPMAN DO, DAYANA K 382.00 OTITIS MEDIA ACUTE SUPPURATIVE 06/11/2011 CHAPMAN DO, DAYANA K 780.60 FEVER, UNSPECIFIED 06/11/2011 MADL BOTANY PROFESSOR, JIMI L 382 .00 OTITIS MEDIA ACUTE SUPPURATIVE 06/11/2011 MADL BOTANY PROFESSOR, JIMI L 780 .60 FEVER, UNSPECIFIED 06/11/2011 MADL BOTANY PROFESSOR, JIMI L 382 .00 OTITIS MEDIA ACUTE SUPPURATIVE 06/11/2011 MADL BOTANY PROFESSOR, JIMI L 780 .60 FEVER, UNSPECIFIED 06/11/2011 MADL BOTANY PROFESSOR, JIMI L 382 .00 OTITIS MEDIA ACUTE SUPPURATIVE 06/11/2011 MADL BOTANY PROFESSOR, JIMI L 780 .60 FEVER, UNSPECIFIED 06/11/2011 MADL BOTANY PROFESSOR, JIMI L 382 .00 OTITIS MEDIA ACUTE SUPPURATIVE 06/11/2011 MADL BOTANY PROFESSOR, JIMI L 780 .60 FEVER, UNSPECIFIED 06/11/2011 MADL BOTANY PROFESSOR, JIMI L 382 .00 OTITIS MEDIA ACUTE SUPPURATIVE 06/11/2011 MADL BOTANY PROFESSOR, JIMI L 780 .60 FEVER, UNSPECIFIED 06/11/2011 MADL BOTANY PROFESSOR, JIMI L 382 .00 OTITIS MEDIA ACUTE SUPPURATIVE 06/11/2011 MADL BOTANY PROFESSOR, JIMI L 780 .60 FEVER, UNSPECIFIED 06/11/2011 MADL BOTANY PROFESSOR, JIMI L 382 .00 OTITIS MEDIA ACUTE SUPPURATIVE 06/11/2011 MADL BOTANY PROFESSOR, JIMI L 780 .60 FEVER, UNSPECIFIED 06/11/2011 CHAPMAN DO, DAYANA K 382.00 OTITIS MEDIA ACUTE SUPPURATIVE 06/11/2011 CHAPMAN DO, DAYANA K 780.60 FEVER, UNSPECIFIED 06/11/2011 CHAPMAN DO, DAYANA K 382.00 OTITIS MEDIA ACUTE SUPPURATIVE 06/11/2011 CHAPMAN DO, DAYANA K 780.60 FEVER, UNSPECIFIED 06/11/2011 CHAPMAN DO, DAYANA K 382.00 OTITIS MEDIA ACUTE SUPPURATIVE 06/11/2011 CHAPMAN DO, DAYANA K 780.60 FEVER, UNSPECIFIED 06/11/2011 MADL BOTANY PROFESSOR, JIMI L 382 .00 OTITIS MEDIA ACUTE SUPPURATIVE 06/11/2011 MADL BOTANY PROFESSOR, JIMI L 780 .60 FEVER, UNSPECIFIED 06/11/2011 CHAPMAN DO, DAYANA K 382.00 OTITIS MEDIA ACUTE SUPPURATIVE 06/11/2011 CHAPMAN DO, DAYANA K 780.60 FEVER, UNSPECIFIED 06/11/2011 CHAPMAN DO, DAYANA K 382.00 OTITIS MEDIA ACUTE SUPPURATIVE 06/11/2011 CHAPMAN DO, DAYANA K 780.60 FEVER, UNSPECIFIED 06/11/2011 MADL BOTANY PROFESSOR, JIMI L 382 .00 OTITIS MEDIA ACUTE SUPPURATIVE 06/11/2011 MADL BOTANY PROFESSOR, JIMI L 780 .60 FEVER, UNSPECIFIED 06/11/2011 MADL BOTANY PROFESSOR, JIMI L 382 .00 OTITIS MEDIA ACUTE SUPPURATIVE 06/11/2011 MADL BOTANY PROFESSOR, JIMI L 780 .60 FEVER, UNSPECIFIED 06/11/2011 MADL BOTANY PROFESSOR, JIMI L 382 .00 OTITIS MEDIA ACUTE SUPPURATIVE 06/11/2011 MADL BOTANY PROFESSOR, JIMI L 780 .60 FEVER, UNSPECIFIED 06/11/2011 MADL BOTANY PROFESSOR, JIMI L 382 .00 OTITIS MEDIA ACUTE SUPPURATIVE 06/11/2011 MADL BOTANY PROFESSOR, JIMI L 780 .60 FEVER, UNSPECIFIED 06/11/2011 MADL BOTANY PROFESSOR, JIMI L 382 .00 OTITIS MEDIA ACUTE SUPPURATIVE 06/11/2011 MADL BOTANY PROFESSOR, JIMI L 780 .60 FEVER, UNSPECIFIED 06/11/2011 MADL BOTANY PROFESSOR, JIMI L 382 .00 OTITIS MEDIA ACUTE SUPPURATIVE 06/11/2011 MADL BOTANY PROFESSOR, JIMI L 780 .60 FEVER, UNSPECIFIED 06/11/2011 MADL BOTANY PROFESSOR, JIMI L 382 .00 OTITIS MEDIA ACUTE SUPPURATIVE 06/11/2011 MADL BOTANY PROFESSOR, JIMI L 780 .60 FEVER, UNSPECIFIED 06/11/2011 MADL BOTANY PROFESSOR, JIMI L 382 .00 OTITIS MEDIA ACUTE SUPPURATIVE 06/11/2011 MADL BOTANY PROFESSOR, JIMI L 780 .60 FEVER, UNSPECIFIED 06/11/2011 MADL BOTANY PROFESSOR, JIMI L 382 .00 OTITIS MEDIA ACUTE SUPPURATIVE 06/11/2011 MADL BOTANY PROFESSOR, JIMI L 780 .60 FEVER, UNSPECIFIED 06/11/2011 MADL BOTANY PROFESSOR, JIMI L 382 .00 OTITIS MEDIA ACUTE SUPPURATIVE 06/11/2011 MADL BOTANY PROFESSOR, JIMI L 780 .60 FEVER, UNSPECIFIED 06/11/2011 MADL BOTANY PROFESSOR, JIMI L 382 .00 OTITIS MEDIA ACUTE SUPPURATIVE 06/11/2011 MADL BOTANY PROFESSOR, JIMI L 780 .60 FEVER, UNSPECIFIED 06/11/2011 MADL BOTANY PROFESSOR, JIMI L 382 .00 OTITIS MEDIA ACUTE SUPPURATIVE 06/11/2011 MADL BOTANY PROFESSOR, JIMI L 780 .60 FEVER, UNSPECIFIED 06/11/2011 MADL BOTANY PROFESSOR, JIMI L 382 .00 OTITIS MEDIA ACUTE SUPPURATIVE 06/11/2011 MADL BOTANY PROFESSOR, JIMI L 780 .60 FEVER, UNSPECIFIED 06/11/2011 MADL BOTANY PROFESSOR, JIMI L 382 .00 OTITIS MEDIA ACUTE SUPPURATIVE 06/11/2011 MADL BOTANY PROFESSOR, JIMI L 780 .60 FEVER, UNSPECIFIED 06/11/2011 MADL BOTANY PROFESSOR, JIMI L 382 .00 OTITIS MEDIA ACUTE SUPPURATIVE 06/11/2011 MADL BOTANY PROFESSOR, JIMI L 780 .60 FEVER, UNSPECIFIED 06/11/2011 MADL BOTANY PROFESSOR, JIMI L 382 .00 OTITIS MEDIA ACUTE SUPPURATIVE 06/11/2011 MADL BOTANY PROFESSOR, JIMI L 780 .60 FEVER, UNSPECIFIED 08/08/2011 199.1 CANC ER, NOS 08/08/2011 V72.42 Pre gnancy Test Positive 08/08/2011 DANAE RIVERA MD 199. 1 CANCER, NOS 08/08/2011 DANAE RIVERA MD V72. 42 Test Positive 08/08/2011 JAMIE DERAS MD 199.1 CANCER, NOS 08/08/2011 JAMIE DERAS MD V72.42 Test Positive 08/08/2011 CELESTE MARINO MD 199.1 CANCER, NOS 08/08/2011 CELESTE MARINO MD V72.4 2 Test Positive 08/08/2011 199.1 CANC ER, NOS 08/08/2011 V72.42 Pre gnancy Test Positive 08/08/2011 JAMIE DERAS MD 199.1 CANCER, NOS 08/08/2011 JAMIE DERAS MD V72.42 Test Positive 08/08/2011 JAMIE DERAS MD 199.1 CANCER, NOS 08/08/2011 JAMIE DERAS MD V72.42 Test Positive 08/08/2011 JAMIE DERAS MD 199.1 CANCER, NOS 08/08/2011 JAMIE DERAS MD V72.42 Test Positive 08/08/2011 JAMIE DERAS MD 199.1 CANCER, NOS 08/08/2011 JAMIE DERAS MD V72.42 Test Positive 08/08/2011 199.1 CANC ER, NOS 08/08/2011 V72.42 Pre gnancy Test Positive 08/08/2011 199.1 CANC ER, NOS 08/08/2011 V72.42 Pre gnancy Test Positive 08/08/2011 199.1 CANC ER, NOS 08/08/2011 V72.42 Pre gnancy Test Positive 08/08/2011 199.1 CANC ER, NOS 08/08/2011 V72.42 Pre gnancy Test Positive 08/08/2011 199.1 CANC ER, NOS 08/08/2011 V72.42 Pre gnancy Test Positive 08/08/2011 199.1 CANC ER, NOS 08/08/2011 V72.42 Pre gnancy Test Positive 08/08/2011 199.1 CANC ER, NOS 08/08/2011 V72.42 Pre gnancy Test Positive 08/08/2011 199.1 CANC ER, NOS 08/08/2011 V72.42 Pre gnancy Test Positive 08/08/2011 199.1 CANC ER, NOS 08/08/2011 V72.42 Pre gnancy Test Positive 08/08/2011 199.1 CANC ER, NOS 08/08/2011 V72.42 Pre gnancy Test Positive 08/08/2011 199.1 CANC ER, NOS 08/08/2011 V72.42 Pre gnancy Test Positive 08/08/2011 199.1 CANC ER, NOS 08/08/2011 V72.42 Pre gnancy Test Positive 08/08/2011 JAMIE DERAS MD 199.1 CANCER, NOS 08/08/2011 JAMIE DERAS MD V72.42 Test Positive 08/08/2011 JAMIE DERAS MD 199.1 CANCER, NOS 08/08/2011 JAMIE DERAS MD V72.42 Test Positive 08/08/2011 JAMIE DERAS MD 199.1 CANCER, NOS 08/08/2011 JAMIE DERAS MD V72.42 Test Positive 08/08/2011 PAT ZAMAN APRN R 199.1 CANCER, NOS 08/08/2011 PAT ZAMAN APRN R V72.42 Test Positive 08/08/2011 JAMIE DERAS MD 199.1 CANCER, NOS 08/08/2011 JAMIE DERAS MD V72.42 Test Positive 08/08/2011 JAMIE DERAS MD 199.1 CANCER, NOS 08/08/2011 JAMIE DERAS MD V72.42 Test Positive 08/08/2011 CHAPMAN DOCONNIEA K 199.1 CANCER, NOS 08/08/2011 CHAPMAN DO DAYANA K V72.42 Test Positive 08/08/2011 JIMI ROBB APRN 199 .1 CANCER, NOS 08/08/2011 JIMI ROBB APRN V72 .42 Test Positive 08/08/2011 MADL BOTANY PROFESSOR, JIMI L 199 .1 CANCER, NOS 08/08/2011 MADL BOTANY PROFESSOR, JIMI L V72 .42 Test Positive 08/08/2011 MADL BOTANY PROFESSOR, JIMI L 199 .1 CANCER, NOS 08/08/2011 MADL BOTANY PROFESSOR, JIMI L V72 .42 Test Positive 08/08/2011 MADL BOTANY PROFESSOR, JIMI L 199 .1 CANCER, NOS 08/08/2011 MADL BOTANY PROFESSOR, JIMI L V72 .42 Test Positive 08/08/2011 MADL BOTANY PROFESSOR, JIMI L 199 .1 CANCER, NOS 08/08/2011 MADL BOTANY PROFESSOR, JIMI L V72 .42 Test Positive 08/08/2011 MADL BOTANY PROFESSOR, JIMI L 199 .1 CANCER, NOS 08/08/2011 MADL BOTANY PROFESSOR, JIMI L V72 .42 Test Positive 08/08/2011 MADL BOTANY PROFESSOR, JIMI L 199 .1 CANCER, NOS 08/08/2011 MADL BOTANY PROFESSOR, JIMI L V72 .42 Test Positive 08/08/2011 CHAPMAN DO, DAYANA K 199.1 CANCER, NOS 08/08/2011 CHAPMAN DO, DAYANA K V72.42 Test Positive 08/08/2011 CHAPMAN DO, DAYANA K 199.1 CANCER, NOS 08/08/2011 CHAPMAN DO, DAYANA K V72.42 Test Positive 08/08/2011 CHAPMAN DO, DAYANA K 199.1 CANCER, NOS 08/08/2011 CHAPMAN DO, DAYANA K V72.42 Test Positive 08/08/2011 MADL BOTANY PROFESSOR, JIMI L 199 .1 CANCER, NOS 08/08/2011 MADL BOTANY PROFESSOR, JIMI L V72 .42 Test Positive 08/08/2011 CHAPMAN DO, DAYANA K 199.1 CANCER, NOS 08/08/2011 CHAPMAN DO, DAYAAN K V72.42 Test Positive 08/08/2011 CHAPMAN DO, DAYANA K 199.1 CANCER, NOS 08/08/2011 CHAPMAN DO, DAYANA K V72.42 Test Positive 08/08/2011 MADL BOTANY PROFESSOR, JIMI L 199 .1 CANCER, NOS 08/08/2011 MADL BOTANY PROFESSOR, JIMI L V72 .42 Test Positive 08/08/2011 MADL BOTANY PROFESSOR, JIMI L 199 .1 CANCER, NOS 08/08/2011 MADL BOTANY PROFESSOR, JIMI L V72 .42 Test Positive 08/08/2011 MADL BOTANY PROFESSOR, JIMI L 199 .1 CANCER, NOS 08/08/2011 MADL BOTANY PROFESSOR, JIMI L V72 .42 Test Positive 08/08/2011 MADL BOTANY PROFESSOR, JIMI L 199 .1 CANCER, NOS 08/08/2011 MADL BOTANY PROFESSOR, JIMI L V72 .42 Test Positive 08/08/2011 MADL BOTANY PROFESSOR, JIMI L 199 .1 CANCER, NOS 08/08/2011 MADL BOTANY PROFESSOR, JIMI L V72 .42 Test Positive 08/08/2011 MADL BOTANY PROFESSOR, JIMI L 199 .1 CANCER, NOS 08/08/2011 MADL BOTANY PROFESSOR, JIMI L V72 .42 Test Positive 08/08/2011 MADL BOTANY PROFESSOR, JIMI L 199 .1 CANCER, NOS 08/08/2011 MADL BOTANY PROFESSOR, JIMI L V72 .42 Test Positive 08/08/2011 MADL BOTANY PROFESSOR, JIMI L 199 .1 CANCER, NOS 08/08/2011 MADL BOTANY PROFESSOR, JIMI L V72 .42 Test Positive 08/08/2011 MADL BOTANY PROFESSOR, JIMI L 199 .1 CANCER, NOS 08/08/2011 MADL BOTANY PROFESSOR, JIMI L V72 .42 Test Positive 08/08/2011 MADL BOTANY PROFESSOR, JIMI L 199 .1 CANCER, NOS 08/08/2011 MADL BOTANY PROFESSOR, JIMI L V72 .42 Test Positive 08/08/2011 MADL BOTANY PROFESSOR, JIMI L 199 .1 CANCER, NOS 08/08/2011 MADL BOTANY PROFESSOR, JIMI L V72 .42 Test Positive 08/08/2011 MADL BOTANY PROFESSOR, JIMI L 199 .1 CANCER, NOS 08/08/2011 MADL BOTANY PROFESSOR, JIMI L V72 .42 Test Positive 08/08/2011 MADL BOTANY PROFESSOR, JIMI L 199 .1 CANCER, NOS 08/08/2011 MADL BOTANY PROFESSOR, JIMI L V72 .42 Test Positive 08/08/2011 MADL BOTANY PROFESSOR, JIMI L 199 .1 CANCER, NOS 08/08/2011 MADL BOTANY PROFESSOR, JIMI L V72 .42 Test Positive 08/08/2011 MADL BOTANY PROFESSOR, JIMI L 199 .1 CANCER, NOS 08/08/2011 MADL BOTANY PROFESSOR, JIMI L V72 .42 Test Positive 08/08/2011 MADL BOTANY PROFESSOR, JIMI L 199 .1 CANCER, NOS 08/08/2011 MADL BOTANY PROFESSOR, JIMI L V72 .42 Test Positive 09/11/2011 Ot 632 02/05/2012 278.00 OBESITY 02/05/2012 MIGUEL PAYNE, DANAE 278. 00 OBESITY 02/05/2012 JAMIE DERAS MD 278.00 OBESITY 02/05/2012 NED PAYNE, CELESTE 278.0 0 OBESITY 02/05/2012 278.00 OBESITY 02/05/2012 JAMIE DERAS [...] JAMIE DERAS MD 278.00 OBESITY 02/05/2012 JUNIE BOTANY PROFESSOR, PAT R 278.00 OBESITY 02/05/2012 JAMIE DERAS MD 278.00 OBESITY 02/05/2012 JAMIE DERAS MD M 278.00 OBESITY 02/05/2012 CHAPMAN DO, DAYANA K 278.00 OBESITY 02/05/2012 MADL BOTANY PROFESSOR, JIMI L 278 .00 OBESITY 02/05/2012 MADL BOTANY PROFESSOR, JIMI L 278 .00 OBESITY 02/05/2012 MADL BOTANY PROFESSOR, JIMI L 278 .00 OBESITY 02/05/2012 MADL BOTANY PROFESSOR, JIMI L 278 .00 OBESITY 02/05/2012 MADL BOTANY PROFESSOR, JIMI L 278 .00 OBESITY 02/05/2012 MADL BOTANY PROFESSOR, JIMI L 278 .00 OBESITY 02/05/2012 MADL BOTANY PROFESSOR, JIMI L 278 .00 OBESITY 02/05/2012 CHAPMAN DO, DAYANA K 278.00 OBESITY 02/05/2012 CHAPMAN DO, DAYANA K 278.00 OBESITY 02/05/2012 CHAPMAN DO, DAYANA K 278.00 OBESITY 02/05/2012 MADL BOTANY PROFESSOR, JIMI L 278 .00 OBESITY 02/05/2012 CHAPMAN DO, DAYANA K 278.00 OBESITY 02/05/2012 CHAPMAN DO, DAYANA K 278.00 OBESITY 02/05/2012 MADL BOTANY PROFESSOR, JIMI L 278 .00 OBESITY 02/05/2012 MADL BOTANY PROFESSOR, JIMI L 278 .00 OBESITY 02/05/2012 MADL BOTANY PROFESSOR, JIMI L 278 .00 OBESITY 02/05/2012 MADL BOTANY PROFESSOR, JIMI L 278 .00 OBESITY 02/05/2012 MADL BOTANY PROFESSOR, JIMI L 278 .00 OBESITY 02/05/2012 MADL BOTANY PROFESSOR, JIMI L 278 .00 OBESITY 02/05/2012 MADL BOTANY PROFESSOR, JIMI L 278 .00 OBESITY 02/05/2012 MADL BOTANY PROFESSOR, JIMI L 278 .00 OBESITY 02/05/2012 MADL BOTANY PROFESSOR, JIMI L 278 .00 OBESITY 02/05/2012 MADL BOTANY PROFESSOR, JIMI L 278 .00 OBESITY 02/05/2012 MADL BOTANY PROFESSOR, JIMI L 278 .00 OBESITY 02/05/2012 MADL BOTANY PROFESSOR, JIMI L 278 .00 OBESITY 02/05/2012 MADL BOTANY PROFESSOR, JIMI L 278 .00 OBESITY 02/05/2012 CEZAR MITCHELL, JIMI L 278 .00 OBESITY 02/05/2012 MADL BOTANY PROFESSOR, JIMI L 278 .00 OBESITY 02/05/2012 CEZAR BOTANY PROFESSOR, JIMI L 278 .00 OBESITY 06/05/2012 DANAE RIVERA MD 724. 1 upper back pain (between shoulder blades) 06/05/2012 DANAE RIVERA MD V25. 02 Contraceptives 06/05/2012 JAMIE DERAS MD 724.1 upper back pain (between shoulder blades) 06/05/2012 JAMIE DERAS MD V25.02 Contraceptives 06/05/2012 CELESTE MARINO MD 724.1 upper back pain (between shoulder blades) 06/05/2012 CELESTE MARINO MD V25.0 2 Contraceptives 06/05/2012 724.1 uppe r back pain (between shoulder blades) 06/05/2012 V25.02 Con traceptives 06/05/2012 JAMIE DERAS MD 724.1 upper back [...] JAMIE DERAS MD V25.02 Contraceptives 06/05/2012 724.1 uppe r back pain (between shoulder blades) 06/05/2012 V25.02 Con traceptives 06/05/2012 724.1 uppe r back pain (between shoulder blades) 06/05/2012 V25.02 Con traceptives 06/05/2012 724.1 uppe r back pain (between shoulder blades) 06/05/2012 V25.02 Con traceptives 06/05/2012 724.1 uppe r back pain (between shoulder blades) 06/05/2012 V25.02 Con traceptives 06/05/2012 724.1 uppe r back pain (between shoulder blades) 06/05/2012 V25.02 Con traceptives 06/05/2012 724.1 uppe r back pain (between shoulder blades) 06/05/2012 V25.02 Con traceptives 06/05/2012 724.1 uppe r back pain (between shoulder blades) 06/05/2012 V25.02 Con traceptives 06/05/2012 724.1 uppe r back pain (between shoulder blades) 06/05/2012 V25.02 Con traceptives 06/05/2012 724.1 uppe r back pain (between shoulder blades) 06/05/2012 V25.02 Con traceptives 06/05/2012 724.1 uppe r back pain (between shoulder blades) 06/05/2012 V25.02 Con traceptives 06/05/2012 724.1 uppe r back pain (between shoulder blades) 06/05/2012 V25.02 Con traceptives 06/05/2012 724.1 uppe r back pain (between shoulder blades) 06/05/2012 V25.02 Con traceptives 06/05/2012 JAMIE DERAS MD 724.1 upper back pain (between shoulder blades) 06/05/2012 JMAIE DERAS MD V25.02 Contraceptives 06/05/2012 JAMIE DERAS MD 724.1 upper back pain (between shoulder blades) 06/05/2012 JAMIE DERAS MD V25.02 Contraceptives 06/05/2012 JAMIE DERAS MD 724.1 upper back pain (between shoulder blades) 06/05/2012 JAMIE DERAS MD V25.02 Contraceptives 06/05/2012 PAT ZAMAN APRN R 724.1 upper back pain (between shoulder blades) 06/05/2012 DAT ZAMAN APRNINA R V25.02 Contraceptives 06/05/2012 JAMIE DERAS MD 724.1 upper back pain (between shoulder blades) 06/05/2012 BRAEDEN MD, JAMIE M V25.02 Contraceptives 06/05/2012 JAMIE DERAS MD 724.1 upper back pain (between shoulder blades) 06/05/2012 JAMIE DERAS MD V25.02 Contraceptives 06/05/2012 CHAPMAN DODAYANA K 724.1 upper back pain (between shoulder blades) 06/05/2012 CHAPMAN DO DAYANA K V25.02 Contraceptives 06/05/2012 MADL BOTANY PROFESSOR, JIMI L 724 .1 upper back pain (between shoulder blades) 06/05/2012 MADL BOTANY PROFESSOR, JIMI L V25 .02 Contraceptives 06/05/2012 MADL BOTANY PROFESSOR, JIMI L 724 .1 upper back pain (between shoulder blades) 06/05/2012 MADL BOTANY PROFESSOR, JIMI L V25 .02 Contraceptives 06/05/2012 MADL BOTANY PROFESSOR, JIMI L 724 .1 upper back pain (between shoulder blades) 06/05/2012 MADL BOTANY PROFESSOR, JIMI L V25 .02 Contraceptives 06/05/2012 MADL BOTANY PROFESSOR, JIMI L 724 .1 upper back pain (between shoulder blades) 06/05/2012 MADL BOTANY PROFESSOR, JIMI L V25 .02 Contraceptives 06/05/2012 MADL BOTANY PROFESSOR, JIMI L 724 .1 upper back pain (between shoulder blades) 06/05/2012 MADL BOTANY PROFESSOR, JIMI L V25 .02 Contraceptives 06/05/2012 MADL BOTANY PROFESSOR, JIMI L 724 .1 upper back pain (between shoulder blades) 06/05/2012 MADL BOTANY PROFESSOR, JIMI L V25 .02 Contraceptives 06/05/2012 MADL BOTANY PROFESSOR, JIMI L 724 .1 upper back pain (between shoulder blades) 06/05/2012 MADL BOTANY PROFESSOR, JIMI L V25 .02 Contraceptives 06/05/2012 CHAPMAN DODAYANA K 724.1 upper back pain (between shoulder blades) 06/05/2012 CHAPMAN DO DAYANA K V25.02 Contraceptives 06/05/2012 CHAPMAN DO DAYANA K 724.1 upper back pain (between shoulder blades) 06/05/2012 CHAPMAN DO DAYANA K V25.02 Contraceptives 06/05/2012 CHAPMAN DO, DAYANA K 724.1 upper back pain (between shoulder blades) 06/05/2012 CHAPMAN DO, DAYANA K V25.02 Contraceptives 06/05/2012 MADL BOTANY PROFESSOR, JIMI L 724 .1 upper back pain (between shoulder blades) 06/05/2012 MADL BOTANY PROFESSOR, JIMI L V25 .02 Contraceptives 06/05/2012 CHAPMAN DO, DAYANA K 724.1 upper back pain (between shoulder blades) 06/05/2012 CHAPMAN DO, DAYANA K V25.02 Contraceptives 06/05/2012 CHAPMAN DO, DAYANA K 724.1 upper back pain (between shoulder blades) 06/05/2012 CHAPMAN DO, DAYANA K V25.02 Contraceptives 06/05/2012 MADL BOTANY PROFESSOR, JIMI L 724 .1 upper back pain (between shoulder blades) 06/05/2012 MADL BOTANY PROFESSOR, JIMI L V25 .02 Contraceptives 06/05/2012 MADL BOTANY PROFESSOR, JIMI L 724 .1 upper back pain (between shoulder blades) 06/05/2012 MADL BOTANY PROFESSOR, JIMI L V25 .02 Contraceptives 06/05/2012 MADL BOTANY PROFESSOR, JIMI L 724 .1 upper back pain (between shoulder blades) 06/05/2012 MADL BOTANY PROFESSOR, JIMI L V25 .02 Contraceptives 06/05/2012 MADL BOTANY PROFESSOR, JIMI L 724 .1 upper back pain (between shoulder blades) 06/05/2012 MADL BOTANY PROFESSOR, JIMI L V25 .02 Contraceptives 06/05/2012 MADL BOTANY PROFESSOR, JIMI L 724 .1 upper back pain (between shoulder blades) 06/05/2012 MADL BOTANY PROFESSOR, JIMI L V25 .02 Contraceptives 06/05/2012 MADL BOTANY PROFESSOR, JIMI L 724 .1 upper back pain (between shoulder blades) 06/05/2012 MADL BOTANY PROFESSOR, JIMI L V25 .02 Contraceptives 06/05/2012 MADL BOTANY PROFESSOR, JIMI L 724 .1 upper back pain (between shoulder blades) 06/05/2012 MADL BOTANY PROFESSOR, JIMI L V25 .02 Contraceptives 06/05/2012 MADL BOTANY PROFESSOR, JIMI L 724 .1 upper back pain (between shoulder blades) 06/05/2012 MADL BOTANY PROFESSOR, JIMI L V25 .02 Contraceptives 06/05/2012 MADL BOTANY PROFESSOR, JIMI L 724 .1 upper back pain (between shoulder blades) 06/05/2012 MADL BOTANY PROFESSOR, JIMI L V25 .02 Contraceptives 06/05/2012 MADL BOTANY PROFESSOR, JIMI L 724 .1 upper back pain (between shoulder blades) 06/05/2012 MADL BOTANY PROFESSOR, JIMI L V25 .02 Contraceptives 06/05/2012 MADL BOTANY PROFESSOR, JIMI L 724 .1 upper back pain (between shoulder blades) 06/05/2012 MADL BOTANY PROFESSOR, JIMI L V25 .02 Contraceptives 06/05/2012 MADL BOTANY PROFESSOR, JIMI L 724 .1 upper back pain (between shoulder blades) 06/05/2012 MADL BOTANY PROFESSOR, JIMI L V25 .02 Contraceptives 06/05/2012 MADL BOTANY PROFESSOR, JIMI L 724 .1 upper back pain (between shoulder blades) 06/05/2012 MADL BOTANY PROFESSOR, JIMI L V25 .02 Contraceptives 06/05/2012 MADL BOTANY PROFESSOR, JIMI L 724 .1 upper back pain (between shoulder blades) 06/05/2012 MADL BOTANY PROFESSOR, JIMI L V25 .02 Contraceptives 06/05/2012 MADL BOTANY PROFESSOR, JIMI L 724 .1 upper back pain (between shoulder blades) 06/05/2012 MADL BOTANY PROFESSOR, JIMI L V25 .02 Contraceptives 06/05/2012 MADL BOTANY PROFESSOR, JIMI L 724 .1 upper back pain (between shoulder blades) 06/05/2012 MADL BOTANY PROFESSOR, JIMI L V25 .02 Contraceptives 07/21/2012 Ot 616.0 07/21/2012 Ot 617.0 07/21/2012 Ot V10.44 08/01/2012 Ot 415.19 08/01/2012 Ot 564.00 08/01/2012 Ot 599.0 08/01/2012 Ot 789.00 08/01/2012 Ot V10.44 08/01/2012 Ot V88.01 08/03/2012 JAMIE DERAS MD 415.19 PULMONARY EMBOLUS 08/03/2012 NED PAYNE, CELESTE 415.1 9 ARTERIAL THROMBOSIS PULMONARY 08/03/2012 415.19 ART ERIAL THROMBOSIS PULMONARY 08/03/2012 JAMIE DERAS MD 415.19 ARTERIAL THROMBOSIS PULMONARY 08/03/2012 JAMIE DERAS MD 415.19 ARTERIAL THROMBOSIS PULMONARY 08/03/2012 JAMIE DERAS MD 415.19 ARTERIAL THROMBOSIS PULMONARY 08/03/2012 JAMIE DERAS MD 415.19 ARTERIAL THROMBOSIS PULMONARY 08/03/2012 415.19 ART ERIAL THROMBOSIS PULMONARY 08/03/2012 415.19 ART ERIAL THROMBOSIS PULMONARY 08/03/2012 415.19 ART ERIAL THROMBOSIS PULMONARY 08/03/2012 415.19 ART ERIAL THROMBOSIS PULMONARY 08/03/2012 415.19 ART ERIAL THROMBOSIS PULMONARY 08/03/2012 415.19 ART ERIAL THROMBOSIS PULMONARY 08/03/2012 415.19 ART ERIAL THROMBOSIS PULMONARY 08/03/2012 415.19 ART ERIAL THROMBOSIS PULMONARY 08/03/2012 415.19 ART ERIAL THROMBOSIS PULMONARY 08/03/2012 415.19 ART ERIAL THROMBOSIS PULMONARY 08/03/2012 415.19 ART ERIAL THROMBOSIS PULMONARY 08/03/2012 415.19 ART ERIAL THROMBOSIS PULMONARY 08/03/2012 JAMIE DERAS MD 415.19 ARTERIAL THROMBOSIS PULMONARY 08/03/2012 JAMIE DERAS MD 415.19 ARTERIAL THROMBOSIS PULMONARY 08/03/2012 JAMIE DERAS MD 415.19 ARTERIAL THROMBOSIS PULMONARY 08/03/2012 PAT ZAMAN APRN 415.19 ARTERIAL THROMBOSIS PULMONARY 08/03/2012 JAMIE DERAS MD 415.19 ARTERIAL THROMBOSIS PULMONARY 08/03/2012 JAMIE DERAS MD 415.19 ARTERIAL THROMBOSIS PULMONARY 08/03/2012 DAYANA CHAPMAN DO 415.19 ARTERIAL THROMBOSIS PULMONARY 08/03/2012 CEZAR MITCHELL JIMI L 415 .19 ARTERIAL THROMBOSIS PULMONARY 08/03/2012 CEZAR MITCHELL JIMI L 415 .19 ARTERIAL THROMBOSIS PULMONARY 08/03/2012 CEZAR MITCHELL JIMI L 415 .19 ARTERIAL THROMBOSIS PULMONARY 08/03/2012 MADL BOTANY PROFESSOR, JIMI L 415 .19 ARTERIAL THROMBOSIS PULMONARY 08/03/2012 MADL BOTANY PROFESSOR, JIMI L 415 .19 ARTERIAL THROMBOSIS PULMONARY 08/03/2012 MADL BOTANY PROFESSOR, JIMI L 415 .19 ARTERIAL THROMBOSIS PULMONARY 08/03/2012 MADL BOTANY PROFESSOR, JIMI L 415 .19 ARTERIAL THROMBOSIS PULMONARY 08/03/2012 CHAPMAN DO, DAYANA K 415.19 ARTERIAL THROMBOSIS PULMONARY 08/03/2012 CHAPMAN DO, DAYANA K 415.19 ARTERIAL THROMBOSIS PULMONARY 08/03/2012 CHAPMAN DO, DAYANA K 415.19 ARTERIAL THROMBOSIS PULMONARY 08/03/2012 MADL BOTANY PROFESSOR, JIMI L 415 .19 ARTERIAL THROMBOSIS PULMONARY 08/03/2012 CHAPMAN DO, DAYANA K 415.19 ARTERIAL THROMBOSIS PULMONARY 08/03/2012 CHAPMAN DO, DAYANA K 415.19 ARTERIAL THROMBOSIS PULMONARY 08/03/2012 MADL BOTANY PROFESSOR, JIMI L 415 .19 ARTERIAL THROMBOSIS PULMONARY 08/03/2012 MADL BOTANY PROFESSOR, JIMI L 415 .19 ARTERIAL THROMBOSIS PULMONARY 08/03/2012 MADL BOTANY PROFESSOR, JIMI L 415 .19 ARTERIAL THROMBOSIS PULMONARY 08/03/2012 MADL BOTANY PROFESSOR, JIMI L 415 .19 ARTERIAL THROMBOSIS PULMONARY 08/03/2012 MADL BOTANY PROFESSOR, JIMI L 415 .19 ARTERIAL THROMBOSIS PULMONARY 08/03/2012 MADL BOTANY PROFESSOR, JIMI L 415 .19 ARTERIAL THROMBOSIS PULMONARY 08/03/2012 MADL BOTANY PROFESSOR, JIMI L 415 .19 ARTERIAL THROMBOSIS PULMONARY 08/03/2012 MADL BOTANY PROFESSOR, JIMI L 415 .19 ARTERIAL THROMBOSIS PULMONARY 08/03/2012 MADL BOTANY PROFESSOR, JIMI L 415 .19 ARTERIAL THROMBOSIS PULMONARY 08/03/2012 MADL BOTANY PROFESSOR, JIMI L 415 .19 ARTERIAL THROMBOSIS PULMONARY 08/03/2012 MADL BOTANY PROFESSOR, JIMI L 415 .19 ARTERIAL THROMBOSIS PULMONARY 08/03/2012 MADL BOTANY PROFESSOR, JIMI L 415 .19 ARTERIAL THROMBOSIS PULMONARY 08/03/2012 MADL BOTANY PROFESSOR, JIMI L 415 .19 ARTERIAL THROMBOSIS PULMONARY 08/03/2012 MADL BOTANY PROFESSOR, JIMI L 415 .19 ARTERIAL THROMBOSIS PULMONARY 08/03/2012 MADL BOTANY PROFESSOR, JIMI L 415 .19 ARTERIAL THROMBOSIS PULMONARY 08/03/2012 CEZAR BOTANY PROFESSOR, JIMI L 415 .19 ARTERIAL THROMBOSIS PULMONARY 08/14/2012 JAMIE DERAS MD [...] DERAS MD 729.5 PAIN IN LIMB 08/14/2012 PAT ZAMAN APRN R 729.5 PAIN IN LIMB 08/14/2012 JAMIE DERAS MD 729.5 PAIN IN LIMB 08/14/2012 JAMIE DERAS MD 729.5 PAIN IN LIMB 08/14/2012 DAYANA CHAPMAN DO K 729.5 PAIN IN LIMB 08/14/2012 MADDeloris BOTANY PROFESSOR, JIMI L 729 .5 PAIN IN LIMB 08/14/2012 CEZAR MITCHELL, JIMI L 729 .5 PAIN IN LIMB 08/14/2012 CEZAR MITCHELL, JIMI L 729 .5 PAIN IN LIMB 08/14/2012 MADL BOTANY PROFESSOR, JIMI L 729 .5 PAIN IN LIMB 08/14/2012 MADL BOTANY PROFESSOR, JIMI L 729 .5 PAIN IN LIMB 08/14/2012 MADL BOTANY PROFESSOR, JIMI L 729 .5 PAIN IN LIMB 08/14/2012 MADL BOTANY PROFESSOR, JIMI L 729 .5 PAIN IN LIMB 08/14/2012 CHAPMAN DO, DAYANA K 729.5 PAIN IN LIMB 08/14/2012 CHAPMAN DO, DAYANA K 729.5 PAIN IN LIMB 08/14/2012 CHAPMAN DO, DAYANA K 729.5 PAIN IN LIMB 08/14/2012 MADL BOTANY PROFESSOR, JIMI L 729 .5 PAIN IN LIMB 08/14/2012 CHAPMAN DO, DAYANA K 729.5 PAIN IN LIMB 08/14/2012 CHAPMAN DO, DAYANA K 729.5 PAIN IN LIMB 08/14/2012 MADL BOTANY PROFESSOR, JIMI L 729 .5 PAIN IN LIMB 08/14/2012 MADL BOTANY PROFESSOR, JIMI L 729 .5 PAIN IN LIMB 08/14/2012 MADL BOTANY PROFESSOR, JIMI L 729 .5 PAIN IN LIMB 08/14/2012 MADL BOTANY PROFESSOR, JIMI L 729 .5 PAIN IN LIMB 08/14/2012 MADL BOTANY PROFESSOR, JIMI L 729 .5 PAIN IN LIMB 08/14/2012 MADL BOTANY PROFESSOR, JIMI L 729 .5 PAIN IN LIMB 08/14/2012 MADL BOTANY PROFESSOR, JIMI L 729 .5 PAIN IN LIMB 08/14/2012 MADL BOTANY PROFESSOR, JIMI L 729 .5 PAIN IN LIMB 08/14/2012 MADL BOTANY PROFESSOR, JIMI L 729 .5 PAIN IN LIMB 08/14/2012 MADL BOTANY PROFESSOR, JIMI L 729 .5 PAIN IN LIMB 08/14/2012 MADL BOTANY PROFESSOR, JIMI L 729 .5 PAIN IN LIMB 08/14/2012 MADL BOTANY PROFESSOR, JIMI L 729 .5 PAIN IN LIMB 08/14/2012 MADL BOTANY PROFESSOR, JIMI L 729 .5 PAIN IN LIMB 08/14/2012 MADL BOTANY PROFESSOR, JIMI L 729 .5 PAIN IN LIMB 08/14/2012 CEZAR BOTANY PROFESSOR, JIMI L 729 .5 PAIN IN LIMB 08/14/2012 CEZAR MITCHELL, JIMI L 729 .5 PAIN IN LIMB 08/18/2012 CELESTE MARINO MD 599.0 URINARY TRACT INFECTION 08/18/2012 CELESTE MARINO MD 782.3 soft tissue swelling (non-joint) [Sx] 08/18/2012 599.0 URIN APRIL TRACT INFECTION 08/18/2012 782.3 soft tissue swelling (non-joint) [Sx] 08/18/2012 JAMIE DERAS MD 599.0 URINARY TRACT INFECTION 08/18/2012 JMAIE DERAS MD 782.3 soft tissue swelling (non-joint) [...] soft tissue swelling (non-joint) [Sx] 08/18/2012 599.0 URIN APRIL TRACT INFECTION 08/18/2012 782.3 soft tissue swelling (non-joint) [Sx] 08/18/2012 599.0 URIN APRIL TRACT INFECTION 08/18/2012 782.3 soft tissue swelling (non-joint) [Sx] 08/18/2012 599.0 URIN APRIL TRACT INFECTION 08/18/2012 782.3 soft tissue swelling (non-joint) [Sx] 08/18/2012 599.0 URIN APRIL TRACT INFECTION 08/18/2012 782.3 soft tissue swelling (non-joint) [Sx] 08/18/2012 599.0 URIN APRIL TRACT INFECTION 08/18/2012 782.3 soft tissue swelling (non-joint) [Sx] 08/18/2012 599.0 URIN APRIL TRACT INFECTION 08/18/2012 782.3 soft tissue swelling (non-joint) [Sx] 08/18/2012 599.0 URIN APRIL TRACT INFECTION 08/18/2012 782.3 soft tissue swelling (non-joint) [Sx] 08/18/2012 599.0 URIN APRIL TRACT INFECTION 08/18/2012 782.3 soft tissue swelling (non-joint) [Sx] 08/18/2012 599.0 URIN APRIL TRACT INFECTION 08/18/2012 782.3 soft tissue swelling (non-joint) [Sx] 08/18/2012 599.0 URIN APRIL TRACT INFECTION 08/18/2012 782.3 soft tissue swelling (non-joint) [Sx] 08/18/2012 599.0 URIN APRIL TRACT INFECTION 08/18/2012 782.3 soft tissue swelling (non-joint) [Sx] 08/18/2012 599.0 URIN APRIL TRACT INFECTION 08/18/2012 782.3 soft tissue swelling [...] 782.3 soft tissue swelling (non-joint) [Sx] 08/18/2012 PAT ZAMAN APRN R 599.0 URINARY TRACT INFECTION 08/18/2012 PAT ZAMAN APRN R 782.3 soft tissue swelling (non-joint) [Sx] [...] soft tissue swelling (non-joint) [Sx] 08/18/2012 MADL BOTANY PROFESSOR, JIMI L 599 .0 URINARY TRACT INFECTION 08/18/2012 MADL BOTANY PROFESSOR, JIMI L 782 .3 soft tissue swelling (non-joint) [Sx] 08/18/2012 MADL BOTANY PROFESSOR, JIMI L 599 .0 URINARY TRACT INFECTION 08/18/2012 MADL BOTANY PROFESSOR, JIMI L 782 .3 soft tissue swelling (non-joint) [Sx] 08/18/2012 MADL BOTANY PROFESSOR, JIMI L 599 .0 URINARY TRACT INFECTION 08/18/2012 MADL BOTANY PROFESSOR, JIMI L 782 .3 soft tissue swelling (non-joint) [Sx] 08/18/2012 MADL BOTANY PROFESSOR, JIMI L 599 .0 URINARY TRACT INFECTION 08/18/2012 MADL BOTANY PROFESSOR, JIMI L 782 .3 soft tissue swelling (non-joint) [Sx] 08/18/2012 MADL BOTANY PROFESSOR, JIMI L 599 .0 URINARY TRACT INFECTION 08/18/2012 MADL BOTANY PROFESSOR, JIMI L 782 .3 soft tissue swelling (non-joint) [Sx] 08/18/2012 MADL BOTANY PROFESSOR, JIMI L 599 .0 URINARY TRACT INFECTION 08/18/2012 MADL BOTANY PROFESSOR, JIMI L 782 .3 soft tissue swelling (non-joint) [Sx] 08/18/2012 MADL BOTANY PROFESSOR, JIMI L 599 .0 URINARY TRACT INFECTION 08/18/2012 MADL BOTANY PROFESSOR, JIMI L 782 .3 soft tissue swelling (non-joint) [Sx] 08/18/2012 CHAPMAN [...] soft tissue swelling (non-joint) [Sx] 08/18/2012 MADL BOTANY PROFESSOR, JIMI L 599 .0 URINARY TRACT INFECTION 08/18/2012 MADL BOTANY PROFESSOR, JIMI L 782 .3 soft tissue swelling (non-joint) [Sx] 08/18/2012 CHAPMAN DO, DAYANA K 599.0 URINARY TRACT INFECTION 08/18/2012 CHAPMAN DO, DAYANA K 782.3 soft tissue swelling (non-joint) [Sx] 08/18/2012 CHAPMAN DO, DAYANA K 599.0 URINARY TRACT INFECTION 08/18/2012 CHAPMAN DO, DAYANA K 782.3 soft tissue swelling (non-joint) [Sx] 08/18/2012 MADL BOTANY PROFESSOR, JIMI L 599 .0 URINARY TRACT INFECTION 08/18/2012 MADL BOTANY PROFESSOR, JIMI L 782 .3 soft tissue swelling (non-joint) [Sx] 08/18/2012 MADL BOTANY PROFESSOR, JIMI L 599 .0 URINARY TRACT INFECTION 08/18/2012 MADL BOTANY PROFESSOR, JIMI L 782 .3 soft tissue swelling (non-joint) [Sx] 08/18/2012 MADL BOTANY PROFESSOR, JIMI L 599 .0 URINARY TRACT INFECTION 08/18/2012 MADL BOTANY PROFESSOR, JIMI L 782 .3 soft tissue swelling (non-joint) [Sx] 08/18/2012 MADL BOTANY PROFESSOR, JIMI L 599 .0 URINARY TRACT INFECTION 08/18/2012 MADL BOTANY PROFESSOR, JIMI L 782 .3 soft tissue swelling (non-joint) [Sx] 08/18/2012 MADL BOTANY PROFESSOR, JIMI L 599 .0 URINARY TRACT INFECTION 08/18/2012 MADL BOTANY PROFESSOR, JIMI L 782 .3 soft tissue swelling (non-joint) [Sx] 08/18/2012 MADL BOTANY PROFESSOR, JIMI L 599 .0 URINARY TRACT INFECTION 08/18/2012 MADL BOTANY PROFESSOR, JIMI L 782 .3 soft tissue swelling (non-joint) [Sx] 08/18/2012 MADL BOTANY PROFESSOR, JIMI L 599 .0 URINARY TRACT INFECTION 08/18/2012 MADL BOTANY PROFESSOR, JIMI L 782 .3 soft tissue swelling (non-joint) [Sx] 08/18/2012 MADL BOTANY PROFESSOR, JIMI L 599 .0 URINARY TRACT INFECTION 08/18/2012 MADL BOTANY PROFESSOR, JIMI L 782 .3 soft tissue swelling (non-joint) [Sx] 08/18/2012 MADL BOTANY PROFESSOR, JIMI L 599 .0 URINARY TRACT INFECTION 08/18/2012 MADL BOTANY PROFESSOR, JIMI L 782 .3 soft tissue swelling (non-joint) [Sx] 08/18/2012 MADL BOTANY PROFESSOR, JIMI L 599 .0 URINARY TRACT INFECTION 08/18/2012 MADL BOTANY PROFESSOR, JIMI L 782 .3 soft tissue swelling (non-joint) [Sx] 08/18/2012 MADL BOTANY PROFESSOR, JIMI L 599 .0 URINARY TRACT INFECTION 08/18/2012 MADL BOTANY PROFESSOR, JIMI L 782 .3 soft tissue swelling (non-joint) [Sx] 08/18/2012 MADL BOTANY PROFESSOR, JIMI L 599 .0 URINARY TRACT INFECTION 08/18/2012 MADL BOTANY PROFESSOR, JIMI L 782 .3 soft tissue swelling (non-joint) [Sx] 08/18/2012 MADL BOTANY PROFESSOR, JIMI L 599 .0 URINARY TRACT INFECTION 08/18/2012 MADL BOTANY PROFESSOR, JIMI L 782 .3 soft tissue swelling (non-joint) [Sx] 08/18/2012 MADL BOTANY PROFESSOR, JIMI L 599 .0 URINARY TRACT INFECTION 08/18/2012 MADL BOTANY PROFESSOR, JIMI L 782 .3 soft tissue swelling (non-joint) [Sx] 08/18/2012 MADL BOTANY PROFESSOR, JIMI L 599 .0 URINARY TRACT INFECTION 08/18/2012 MADL BOTANY PROFESSOR, JIMI L 782 .3 soft tissue swelling (non-joint) [Sx] 08/18/2012 MADL BOTANY PROFESSOR, JIMI L 599 .0 URINARY TRACT INFECTION 08/18/2012 MADL BOTANY PROFESSOR, JIMI L 782 .3 soft tissue swelling (non-joint) [Sx] 10/17/2012 V65.42 COU NSELING - SMOKING CESSATION 10/17/2012 V65.42 COU NSELING - SMOKING CESSATION 10/17/2012 V65.42 COU NSELING - SMOKING CESSATION 10/17/2012 V65.42 COU NSELING - SMOKING CESSATION 10/17/2012 V65.42 COU NSELING - SMOKING CESSATION 10/17/2012 V65.42 COU NSELING - SMOKING CESSATION 10/17/2012 V65.42 COU NSELING - SMOKING CESSATION 10/17/2012 V65.42 COU NSELING - SMOKING CESSATION 10/17/2012 V65.42 COU NSELING - SMOKING CESSATION 10/17/2012 V65.42 COU NSELING - SMOKING CESSATION 10/17/2012 JAMIE DERAS MD V65.42 COUNSELING - SMOKING CESSATION 10/17/2012 JAMIE DERAS MD V65.42 COUNSELING - SMOKING CESSATION 10/17/2012 JAMIE DERAS MD V65.42 COUNSELING - SMOKING CESSATION 10/17/2012 PAT ZAMAN APRN V65.42 COUNSELING - SMOKING CESSATION 10/17/2012 JAMIE DERAS MD V65.42 COUNSELING - SMOKING CESSATION 10/17/2012 JAMIE DERAS MD V65.42 COUNSELING - SMOKING CESSATION 10/17/2012 DAYANA CHAPMAN DO V65.42 COUNSELING - SMOKING CESSATION 10/17/2012 CEZAR BOTANY PROFESSOR, JIMI L V65 .42 COUNSELING - SMOKING CESSATION 10/17/2012 CEZAR BOTANY PROFESSOR, JIMI L V65 .42 COUNSELING - SMOKING CESSATION 10/17/2012 ALEXL BOTANY PROFESSOR, JIMI L V65 .42 COUNSELING - SMOKING CESSATION 10/17/2012 CEZAR BOTANY PROFESSOR, JIMI L V65 .42 COUNSELING - SMOKING CESSATION 10/17/2012 CEZAR BOTANY PROFESSOR, JIMI L V65 .42 COUNSELING - SMOKING CESSATION 10/17/2012 MADL BOTANY PROFESSOR, JIMI L V65 .42 COUNSELING - SMOKING CESSATION 10/17/2012 MADL BOTANY PROFESSOR, JIMI L V65 .42 COUNSELING - SMOKING CESSATION 10/17/2012 CHAPMAN DO, DAYANA K V65.42 COUNSELING - SMOKING CESSATION 10/17/2012 CHAPMAN DO, DAYANA K V65.42 COUNSELING - SMOKING CESSATION 10/17/2012 CHAPMAN DO, DAYANA K V65.42 COUNSELING - SMOKING CESSATION 10/17/2012 MADL BOTANY PROFESSOR, JIMI L V65 .42 COUNSELING - SMOKING CESSATION 10/17/2012 CHAPMAN DO, DAYANA K V65.42 COUNSELING - SMOKING CESSATION 10/17/2012 CHAPMAN DO, DAYANA K V65.42 COUNSELING - SMOKING CESSATION 10/17/2012 MADL BOTANY PROFESSOR, JIMI L V65 .42 COUNSELING - SMOKING CESSATION 10/17/2012 MAD BOTANY PROFESSOR, JIMI L V65 .42 COUNSELING - SMOKING CESSATION 10/17/2012 [facility] BOTANY PROFESSOR, JIMI L V65 .42 COUNSELING - SMOKING CESSATION 10/17/2012 [facility] BOTANY PROFESSOR, JIMI L V65 .42 COUNSELING - SMOKING CESSATION 10/17/2012 MAD BOTANY PROFESSOR, JIMI L V65 .42 COUNSELING - SMOKING CESSATION 10/17/2012 MAD BOTANY PROFESSOR, JIMI L V65 .42 COUNSELING - SMOKING CESSATION 10/17/2012 MAD BOTANY PROFESSOR, JIMI L V65 .42 COUNSELING - SMOKING CESSATION 10/17/2012 [facility] BOTANY PROFESSOR, JIMI L V65 .42 COUNSELING - SMOKING CESSATION 10/17/2012 [facility] BOTANY PROFESSOR, JIMI L V65 .42 COUNSELING - SMOKING CESSATION 10/17/2012 MAD BOTANY PROFESSOR, JIMI L V65 .42 COUNSELING - SMOKING CESSATION 10/17/2012 MADL BOTANY PROFESSOR, JIMI L V65 .42 COUNSELING - SMOKING CESSATION 10/17/2012 MADL BOTANY PROFESSOR, JIMI L V65 .42 COUNSELING - SMOKING CESSATION 10/17/2012 MAD BOTANY PROFESSOR, JIMI L V65 .42 COUNSELING - SMOKING CESSATION 10/17/2012 MAD BOTANY PROFESSOR, JIMI L V65 .42 COUNSELING - SMOKING CESSATION 10/17/2012 MADL BOTANY PROFESSOR, JIMI L V65 .42 COUNSELING - SMOKING CESSATION 10/17/2012 MADL BOTANY PROFESSOR, JIMI L V65 .42 COUNSELING - SMOKING CESSATION 12/22/2012 625.9 PELV IC PAIN 12/22/2012 625.9 PELV IC PAIN 12/22/2012 625.9 PELV IC PAIN 12/22/2012 625.9 PELV IC PAIN 12/22/2012 JAMIE DERAS MD 625.9 PELVIC PAIN 12/22/2012 JAMIE DERAS MD 625.9 PELVIC PAIN 12/22/2012 JAMIE DERAS MD 625.9 PELVIC PAIN 12/22/2012 JUNEI MITCHELL, PAT Devlin 625.9 PELVIC PAIN 12/22/2012 JAMIE DERAS MD 625.9 PELVIC PAIN 12/22/2012 JAMIE DERAS MD 625.9 PELVIC PAIN 12/22/2012 CHAPMAN DO, DAYANA K 625.9 PELVIC PAIN 12/22/2012 MADL BOTANY PROFESSOR, JIMI L 625 .9 PELVIC PAIN 12/22/2012 MADL BOTANY PROFESSOR, JIMI L 625 .9 PELVIC PAIN 12/22/2012 MADL BOTANY PROFESSOR, JIMI L 625 .9 PELVIC PAIN 12/22/2012 MADL BOTANY PROFESSOR, JIMI L 625 .9 PELVIC PAIN 12/22/2012 MADL BOTANY PROFESSOR, JIMI L 625 .9 PELVIC PAIN 12/22/2012 MADL BOTANY PROFESSOR, JIMI L 625 .9 PELVIC PAIN 12/22/2012 MADL BOTANY PROFESSOR, JIMI L 625 .9 PELVIC PAIN 12/22/2012 CHAPMAN DO, DAYANA K 625.9 PELVIC PAIN 12/22/2012 CHAPMAN DO, DAYANA K 625.9 PELVIC PAIN 12/22/2012 CHAPMAN DO, DAYANA K 625.9 PELVIC PAIN 12/22/2012 MADL BOTANY PROFESSOR, JIMI L 625 .9 PELVIC PAIN 12/22/2012 CHAPMAN DO, DAYANA K 625.9 PELVIC PAIN 12/22/2012 CHAPMAN DO, DAYANA K 625.9 PELVIC PAIN 12/22/2012 MADL BOTANY PROFESSOR, JIMI L 625 .9 PELVIC PAIN 12/22/2012 MADL BOTANY PROFESSOR, JIMI L 625 .9 PELVIC PAIN 12/22/2012 MADL BOTANY PROFESSOR, JIMI L 625 .9 PELVIC PAIN 12/22/2012 MADL BOTANY PROFESSOR, JIMI L 625 .9 PELVIC PAIN 12/22/2012 MADL BOTANY PROFESSOR, JIMI L 625 .9 PELVIC PAIN 12/22/2012 MADL BOTANY PROFESSOR, JIMI L 625 .9 PELVIC PAIN 12/22/2012 MADL BOTANY PROFESSOR, JIMI L 625 .9 PELVIC PAIN 12/22/2012 MADL BOTANY PROFESSOR, JIMI L 625 .9 PELVIC PAIN 12/22/2012 MADL BOTANY PROFESSOR, JIMI L 625 .9 PELVIC PAIN 12/22/2012 MADL BOTANY PROFESSOR, JIMI L 625 .9 PELVIC PAIN 12/22/2012 MADL BOTANY PROFESSOR, JIMI L 625 .9 PELVIC PAIN 12/22/2012 MADL BOTANY PROFESSOR, JIMI L 625 .9 PELVIC PAIN 12/22/2012 MADL BOTANY PROFESSOR, JIMI L 625 .9 PELVIC PAIN 12/22/2012 MADL BOTANY PROFESSOR, JIMI L 625 .9 PELVIC PAIN 12/22/2012 MADL BOTANY PROFESSOR, JIMI L 625 .9 PELVIC PAIN 12/22/2012 MADL BOTANY PROFESSOR, JIMI L 625 .9 PELVIC PAIN 01/05/2013 780.2 PRES YNCOPE SYNDROME 01/05/2013 780.2 PRES YNCOPE SYNDROME 01/05/2013 780.2 PRES YNCOPE SYNDROME 01/05/2013 JAMIE DERAS MD 780.2 PRESYNCOPE SYNDROME 01/05/2013 JAMIE DERAS MD 780.2 PRESYNCOPE SYNDROME 01/05/2013 JAMIE DERAS MD 780.2 PRESYNCOPE SYNDROME 01/05/2013 PAT ZAMAN APRN 780.2 PRESYNCOPE SYNDROME 01/05/2013 JAMIE DERAS MD 780.2 PRESYNCOPE SYNDROME 01/05/2013 JAMIE DERAS MD 780.2 PRESYNCOPE SYNDROME 01/05/2013 DAYANA CHAPMAN DO 780.2 PRESYNCOPE SYNDROME 01/05/2013 MADL BOTANY PROFESSOR, JIMI L 780 .2 PRESYNCOPE SYNDROME 01/05/2013 MADL BOTANY PROFESSOR, JIMI L 780 .2 PRESYNCOPE SYNDROME 01/05/2013 MADL BOTANY PROFESSOR, JIMI L 780 .2 PRESYNCOPE SYNDROME 01/05/2013 MADL BOTANY PROFESSOR, JIMI L 780 .2 PRESYNCOPE SYNDROME 01/05/2013 MADL BOTANY PROFESSOR, JIMI L 780 .2 PRESYNCOPE SYNDROME 01/05/2013 MADL BOTANY PROFESSOR, JIMI L 780 .2 PRESYNCOPE SYNDROME 01/05/2013 MADL BOTANY PROFESSOR, JIMI L 780 .2 PRESYNCOPE SYNDROME 01/05/2013 CHAPMAN DO, DAYANA K 780.2 PRESYNCOPE SYNDROME 01/05/2013 CHAPMAN DO, DAYANA K 780.2 PRESYNCOPE SYNDROME 01/05/2013 CHAPMAN DO, DAYANA K 780.2 PRESYNCOPE SYNDROME 01/05/2013 MADL BOTANY PROFESSOR, JIMI L 780 .2 PRESYNCOPE SYNDROME 01/05/2013 CHAPMAN DO, DAYANA K 780.2 PRESYNCOPE SYNDROME 01/05/2013 CHAPMAN DO, DAYANA K 780.2 PRESYNCOPE SYNDROME 01/05/2013 MADL BOTANY PROFESSOR, JIMI L 780 .2 PRESYNCOPE SYNDROME 01/05/2013 MADL BOTANY PROFESSOR, JIMI L 780 .2 PRESYNCOPE SYNDROME 01/05/2013 MADL BOTANY PROFESSOR, JIMI L 780 .2 PRESYNCOPE SYNDROME 01/05/2013 MADL BOTANY PROFESSOR, JIMI L 780 .2 PRESYNCOPE SYNDROME 01/05/2013 MADL BOTANY PROFESSOR, JIMI L 780 .2 PRESYNCOPE SYNDROME 01/05/2013 MADL BOTANY PROFESSOR, JIMI L 780 .2 PRESYNCOPE SYNDROME 01/05/2013 MADL BOTANY PROFESSOR, JIMI L 780 .2 PRESYNCOPE SYNDROME 01/05/2013 MADL BOTANY PROFESSOR, JIMI L 780 .2 PRESYNCOPE SYNDROME 01/05/2013 MADL BOTANY PROFESSOR, JIMI L 780 .2 PRESYNCOPE SYNDROME 01/05/2013 MADL BOTANY PROFESSOR, JIMI L 780 .2 PRESYNCOPE SYNDROME 01/05/2013 MADL BOTANY PROFESSOR, JIMI L 780 .2 PRESYNCOPE SYNDROME 01/05/2013 MADL BOTANY PROFESSOR, JIMI L 780 .2 PRESYNCOPE SYNDROME 01/05/2013 MADL BOTANY PROFESSOR, JIMI L 780 .2 PRESYNCOPE SYNDROME 01/05/2013 MADL BOTANY PROFESSOR, JIMI L 780 .2 PRESYNCOPE SYNDROME 01/05/2013 MADL BOTANY PROFESSOR, JIMI L 780 .2 PRESYNCOPE SYNDROME 01/05/2013 MADL BOTANY PROFESSOR, JIMI L 780 .2 PRESYNCOPE SYNDROME 01/18/2013 V58.69 MED ICATION HIGH RISK 01/18/2013 V58.69 MED ICATION HIGH RISK 01/18/2013 JAMIE DERAS MD V58.69 MEDICATION HIGH RISK 01/18/2013 JAMIE DERAS MD V58.69 MEDICATION HIGH RISK 01/18/2013 JAMIE DERAS MD V58.69 MEDICATION HIGH RISK 01/18/2013 JUNIE BOTANY PROFESSOR PAT R V58.69 MEDICATION HIGH RISK 01/18/2013 JAMIE DERAS MD V58.69 MEDICATION HIGH RISK 01/18/2013 JAMIE DERAS MD V58.69 MEDICATION HIGH RISK 01/18/2013 CHAPMAN DO, DAYANA K V58.69 MEDICATION HIGH RISK 01/18/2013 MADL BOTANY PROFESSOR, JIMI L V58 .69 MEDICATION HIGH RISK 01/18/2013 MADL BOTANY PROFESSOR, JIMI L V58 .69 MEDICATION HIGH RISK 01/18/2013 MADL BOTANY PROFESSOR, JIMI L V58 .69 MEDICATION HIGH RISK 01/18/2013 MADL BOTANY PROFESSOR, JIMI L V58 .69 MEDICATION HIGH RISK 01/18/2013 MADL BOTANY PROFESSOR, JIMI L V58 .69 MEDICATION HIGH RISK 01/18/2013 MADL BOTANY PROFESSOR, JIMI L V58 .69 MEDICATION HIGH RISK 01/18/2013 MADL BOTANY PROFESSOR, JIMI L V58 .69 MEDICATION HIGH RISK 01/18/2013 CHAPMAN DO, DAYANA K V58.69 MEDICATION HIGH RISK 01/18/2013 CHAPMAN DO, DAYANA K V58.69 MEDICATION HIGH RISK 01/18/2013 CHAPMAN DO, DAYANA K V58.69 MEDICATION HIGH RISK 01/18/2013 MADL BOTANY PROFESSOR, JIMI L V58 .69 MEDICATION HIGH RISK 01/18/2013 CHAPMAN DO, DYAANA K V58.69 MEDICATION HIGH RISK 01/18/2013 CHAPMAN DO, DAYANA K V58.69 MEDICATION HIGH RISK 01/18/2013 MADL BOTANY PROFESSOR, JIMI L V58 .69 MEDICATION HIGH RISK 01/18/2013 MADL BOTANY PROFESSOR, JIMI L V58 .69 MEDICATION HIGH RISK 01/18/2013 MADL BOTANY PROFESSOR, JIMI L V58 .69 MEDICATION HIGH RISK 01/18/2013 MADL BOTANY PROFESSOR, JIMI L V58 .69 MEDICATION HIGH RISK 01/18/2013 MADL BOTANY PROFESSOR, JIMI L V58 .69 MEDICATION HIGH RISK 01/18/2013 MADL BOTANY PROFESSOR, JIMI L V58 .69 MEDICATION HIGH RISK 01/18/2013 MADL BOTANY PROFESSOR, JIMI L V58 .69 MEDICATION HIGH RISK 01/18/2013 MADL BOTANY PROFESSOR, JIMI L V58 .69 MEDICATION HIGH RISK 01/18/2013 MADL BOTANY PROFESSOR, JIMI L V58 .69 MEDICATION HIGH RISK 01/18/2013 MADL BOTANY PROFESSOR, JIMI L V58 .69 MEDICATION HIGH RISK 01/18/2013 MADL BOTANY PROFESSOR, JIMI L V58 .69 MEDICATION HIGH RISK 01/18/2013 MADL BOTANY PROFESSOR, JIMI L V58 .69 MEDICATION HIGH RISK 01/18/2013 MADL BOTANY PROFESSOR, JIMI L V58 .69 MEDICATION HIGH RISK 01/18/2013 MADL BOTANY PROFESSOR, JIMI L V58 .69 MEDICATION HIGH RISK 01/18/2013 MADL BOTANY PROFESSOR, JIMI L V58 .69 MEDICATION HIGH RISK 01/18/2013 MADL BOTANY PROFESSOR, JIMI L V58 .69 MEDICATION HIGH RISK 11/03/2013 MADL BOTANY PROFESSOR, JIMI L 919 .4 INSECT BITE NONVENOMOUS OF OTHER MULTIPLE AND UNSPECIFIED SITES WITHOUT INFECTION 11/03/2013 MADL BOTANY PROFESSOR, JIMI L 919 .4 INSECT BITE NONVENOMOUS OF OTHER MULTIPLE AND UNSPECIFIED SITES WITHOUT INFECTION 11/03/2013 MADL BOTANY PROFESSOR, JIMI L 919 .4 INSECT BITE NONVENOMOUS OF OTHER MULTIPLE AND UNSPECIFIED SITES WITHOUT INFECTION 11/03/2013 MADL BOTANY PROFESSOR, JIMI L 919 .4 INSECT BITE NONVENOMOUS OF OTHER MULTIPLE AND UNSPECIFIED SITES WITHOUT INFECTION 11/03/2013 MADL BOTANY PROFESSOR, JIMI L 919 .4 INSECT BITE NONVENOMOUS OF OTHER MULTIPLE AND UNSPECIFIED SITES WITHOUT INFECTION 11/03/2013 MADL BOTANY PROFESSOR, JIMI L 919 .4 INSECT BITE NONVENOMOUS OF OTHER MULTIPLE AND UNSPECIFIED SITES WITHOUT INFECTION 11/03/2013 MADL BOTANY PROFESSOR, JIMI L 919 .4 INSECT BITE NONVENOMOUS OF OTHER MULTIPLE AND [...] AND UNSPECIFIED SITES WITHOUT INFECTION 11/03/2013 MADL BOTANY PROFESSOR, JIMI L 919 .4 INSECT BITE NONVENOMOUS OF OTHER MULTIPLE AND UNSPECIFIED SITES WITHOUT INFECTION 11/03/2013 CHAPMAN DO, DAYANA K 919.4 INSECT BITE NONVENOMOUS OF OTHER MULTIPLE AND UNSPECIFIED SITES WITHOUT INFECTION 11/03/2013 CHAPMAN DO, DAYANA K 919.4 INSECT BITE NONVENOMOUS OF OTHER MULTIPLE AND UNSPECIFIED SITES WITHOUT INFECTION 11/03/2013 MADL BOTANY PROFESSOR, JIMI L 919 .4 INSECT BITE NONVENOMOUS OF OTHER MULTIPLE AND UNSPECIFIED SITES WITHOUT INFECTION 11/03/2013 MADL BOTANY PROFESSOR, JIMI L 919 .4 INSECT BITE NONVENOMOUS OF OTHER MULTIPLE AND UNSPECIFIED SITES WITHOUT INFECTION 11/03/2013 MADL BOTANY PROFESSOR, JIMI L 919 .4 INSECT BITE NONVENOMOUS OF OTHER MULTIPLE AND UNSPECIFIED SITES WITHOUT INFECTION 11/03/2013 MADL BOTANY PROFESSOR, JIMI L 919 .4 INSECT BITE NONVENOMOUS OF OTHER MULTIPLE AND UNSPECIFIED SITES WITHOUT INFECTION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 05/12/2016 AMPARO WHITE APRN Ot Z79.899 OTHER MCC (CURRENT) DRUG THERAPY 05/12/2016 AMPARO WHITE APRN Ot Z86.711 PERSONAL HISTORY OF PULMONARY EMBOLISM 05/14/2016 AMPARO WHITE BOTANY PROFESSOR Ot I10 ESSENTIAL (PRIMARY) HYPERTENSION 05/14/2016 AMPARO WHITE APRN Ot K52 .9 NONINFECTIVE GASTROENTERITIS AND COLITIS 05/14/2016 WHITE, PETER J BOTANY PROFESSOR Ot R11 .2 NAUSEA WITH VOMITING, UNSPECIFIED 05/14/2016 AMPARO WHITE BOTANY PROFESSOR Ot R74 .8 ABNORMAL LEVELS OF OTHER SERUM ENZYMES 05/14/2016 AMPARO WHITE BOTANY PROFESSOR Ot Z79.01 MCC (CURRENT) USE OF ANTICOAGULANT 05/14/2016 AMPARO WHITE BOTANY PROFESSOR Ot Z79.899 OTHER MCC (CURRENT) DRUG THERAPY 05/14/2016 AMPARO WHITE APRN Ot Z86.711 PERSONAL HISTORY OF PULMONARY EMBOLISM 05/14/2016 JAG MUKHERJEE MD Ot 305. 1 TOBACCO USE DISORDER 05/14/2016 JAG MUKHERJEE MD Ot 415. 19 OTH PULMON EMBOLISM/INFARCT 05/14/2016 JAG MUKHERJEE MD Ot 785. 1 PALPITATIONS 05/14/2016 JAG MUKHERJEE MD Ot 786. 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 05/14/2016 LANA COLLIER Ot V12.51 HX- VENOUS THROMBOSIS EMBOLISM 05/14/2016 LANA COLLIER Ot V12.55 PERSONAL HISTORY OF PULMONARY EMBOLISM 05/14/2016 LANA COLLIER Ot V45.77 ACQRD ABSENCE OF GENITAL ORGANS 05/14/2016 LANA COLLIER Ot V58.61 ANTICOAGULANTS,LT,CURRENT USE 05/14/2016 LANA COLLIER Ot V58.69 OTH MED,LT,CURRENT USE 05/14/2016 LANA COLLIER Ot V87.41 PERSONAL HISTORY OF ANTINEOPLASTIC CHEMO 05/14/2016 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 Ot 240.9 GOITER NOS 05/14/2016 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 Ot 625.9 FEM GENITAL SYMPTOMS NOS 05/14/2016 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 Ot 625.9 FEM GENITAL SYMPTOMS NOS 05/14/2016 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 Ot 415.19 OTH PULMON EMBOLISM/INFARCT 05/14/2016 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 Ot 427.89 CARDIAC DYSRHYTHMIAS NEC 05/14/2016 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 Ot 435.9 TRANS CEREB ISCHEMIA NOS 05/14/2016 RENE DO, AMINAH J Ot 276.51 DEHYDRATION 05/14/2016 MULLENTROY Gagnon SINGING TEACHER Ot 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 05/14/2016 MULLENTROY Gagnon SINGING TEACHER Ot V12.51 HX-VENOUS THROMBOSIS EMBOLISM 05/14/2016 MULLENTROY Gagnon SINGING TEACHER Ot V12.55 PERSONAL HISTORY OF PULMONARY EMBOLISM 05/14/2016 MULLENTROY Gagnon SINGING TEACHER Ot V45.77 ACQRD ABSENCE OF GENITAL ORGANS 05/14/2016 MULLENTROY Gagnon SINGING TEACHER Ot V58.61 ANTICOAGULANTS,LT,CURRENT USE 05/14/2016 MULLENTROY Gagnon SINGING TEACHER Ot V58.69 OTH MED,LT,CURRENT USE 05/14/2016 MULLENTROY Gagnon SINGING TEACHER Ot V87.41 PERSONAL HISTORY OF ANTINEOPLASTIC CHEMO 05/14/2016 LONNY PAYNE, JAG Garcia Ot 305. 1 TOBACCO USE DISORDER 05/14/2016 LONNY PAYNE, JAG Garcia Ot 415. 19 OTH PULMON EMBOLISM/INFARCT 05/14/2016 LONNY PAYNE, JAG Garcia Ot 785. 1 PALPITATIONS 05/14/2016 JAG MUKHERJEE MD Ot 786. 05 SHORTNESS OF BREATH 05/14/2016 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 Ot 346.90 MIGRAINE UNSPECIFIED W/O INTRACT MGRN W/ 05/14/2016 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 Ot 369.9 VISUAL LOSS NOS 05/14/2016 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 Ot 041.00 05/14/2016 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 Ot V58.61 05/14/2016 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 Ot E04.1 NONTOXIC SINGLE THYROID NODULE 05/14/2016 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 Ot R10.2 PELVIC AND PERINEAL PAIN 05/14/2016 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 Ot E86.0 DEHYDRATION 05/14/2016 LAURA ANGELES ANP Ot I26.99 OTHER PULMONARY EMBOLISM WITHOUT ACUTE C 05/14/2016 LAURA ANGELES ANP Ot I82.409 ACUTE EMBOLISM AND THOMBOS UNSP DEEP VN 05/14/2016 LAURA ANGELES ANP Ot M79.1 MYALGIA 05/14/2016 LAURA ANGELES ANP Ot R50.9 FEVER, UNSPECIFIED 05/14/2016 KARTHIK LAURA N ANP Ot R53.82 CHRONIC FATIGUE, UNSPECIFIED 05/14/2016 LARRY MCKEON Kelly BOTANY PROFESSOR Ot R22.1 LOCALIZED SWELLING, MASS AND LUMP, NECK 05/14/2016 KRISTINE AMIN DO Ot Z12.31 ENCNTR SCREEN MAMMOGRAM FOR MALIGNANT NE 05/14/2016 CHANTELLE PAYNE, SHAUNNA Swift Ot I26.99 OTHER PULMONARY EMBOLISM WITHOUT ACUTE C 05/14/2016 CHANTELLE PAYNE, SHAUNNA Swift Ot R59.0 LOCALIZED ENLARGED LYMPH NODES 2016 AMPARO WHITE BOTANY PROFESSOR Ot I10 ESSENTIAL (PRIMARY) HYPERTENSION 2016 AMPARO WHITE APRN Ot K52 .9 NONINFECTIVE GASTROENTERITIS AND COLITIS 2016 AMPARO WHITE BOTANY PROFESSOR Ot R11 .2 NAUSEA WITH VOMITING, UNSPECIFIED 2016 AMPARO WHITE BOTANY PROFESSOR Ot R74 .8 ABNORMAL LEVELS OF OTHER SERUM ENZYMES 2016 AMPARO WHITE BOTANY PROFESSOR Ot 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 2016 AMPARO WHITE BOTANY PROFESSOR Ot Z79.899 OTHER BRIM POUNCING 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 (CURRENT) DRUG THERAPY 2016 AMPARO WHITE BOTANY PROFESSOR Ot Z86.711 PERSONAL HISTORY OF PULMONARY EMBOLISM 05/24/2016 AMPARO WHITE BOTANY PROFESSOR Ot I10 ESSENTIAL (PRIMARY) HYPERTENSION 05/24/2016 AMPARO WHITE APRN Ot K52 .9 NONINFECTIVE GASTROENTERITIS AND COLITIS 05/24/2016 AMPARO WHITE BOTANY PROFESSOR Ot R11 .2 NAUSEA WITH VOMITING, UNSPECIFIED 05/24/2016 AMPARO WHITE BOTANY PROFESSOR Ot R74 .8 ABNORMAL LEVELS OF OTHER SERUM ENZYMES 05/24/2016 AMPARO WHITE BOTANY PROFESSOR Ot Z79.01 MCC (CURRENT) USE OF ANTICOAGULANT 05/24/2016 AMPARO WHITE BOTANY PROFESSOR Ot Z79.899 OTHER MCC (CURRENT) DRUG THERAPY 05/24/2016 AMPARO WHITE BOTANY PROFESSOR Ot Z86.711 PERSONAL HISTORY OF PULMONARY EMBOLISM 07/07/2016 RICK PEREA MD Ot F17.210 NICOTINE DEPENDENCE, CIGARETTES, UNCOMPL 07/07/2016 RICK PEREA MD Ot I10 ESSENTIAL (PRIMARY) HYPERTENSION 07/07/2016 RICK PEREA MD, Ot J40 BRONCHITIS, NOT SPECIFIED ACUTE OR CH 07/07/2016 RICK PEREA MD Ot R06.02 SHORTNESS OF BREATH 07/07/2016 RICK PEREA MD, Ot Z79.01 MCC (CURRENT) USE OF ANTICOAGULANT 07/07/2016 RICK PEREA MD, Ot Z79.899 OTHER BRIM POUNCING 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 (CURRENT) DRUG THERAPY 07/07/2016 RICK PEREA MD, Ot Z86.711 PERSONAL HISTORY OF PULMONARY EMBOLISM 07/07/2016 JAG MUKHERJEE MD Ot 305. 1 TOBACCO USE DISORDER 07/07/2016 JAG MUKHERJEE MD Ot 415. 19 OTH PULMON EMBOLISM/INFARCT 07/07/2016 JAG MUKHERJEE MD Ot 785. 1 PALPITATIONS 07/07/2016 JAG MUKHERJEE MD Ot 786. 05 SHORTNESS OF BREATH 07/07/2016 LANA COLLIER Ot V10.44 HX- FEMALE GENIT MALG NEC 07/07/2016 LANA COLLIER Ot V12.51 HX- VENOUS THROMBOSIS EMBOLISM 07/07/2016 LANA COLLIER Ot V12.55 PERSONAL HISTORY OF PULMONARY EMBOLISM 07/07/2016 LANA COLLIER Ot V45.77 ACQRD ABSENCE OF GENITAL ORGANS 07/07/2016 LANA COLLIER Ot V58.61 ANTICOAGULANTS,LT,CURRENT USE 07/07/2016 LANA COLLIER Ot V58.69 OTH MED,LT,CURRENT USE 07/07/2016 LANA COLLIER Ot V87.41 PERSONAL HISTORY OF ANTINEOPLASTIC CHEMO 07/07/2016 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 Ot 240.9 GOITER NOS 07/07/2016 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 Ot 625.9 FEM GENITAL SYMPTOMS NOS 07/07/2016 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 Ot 625.9 FEM GENITAL SYMPTOMS NOS 07/07/2016 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 Ot 415.19 OTH PULMON EMBOLISM/INFARCT 07/07/2016 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 Ot 427.89 CARDIAC DYSRHYTHMIAS NEC 07/07/2016 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 Ot 435.9 TRANS CEREB ISCHEMIA NOS 07/07/2016 AMINAH RENE DO J Ot 276.51 DEHYDRATION 07/07/2016 MULLENTROY Gagnon SINGING TEACHER Ot 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 1 TOBACCO USE DISORDER 07/07/2016 LONNY PAYNE, JAG Garcia Ot 415. 19 OTH PULMON EMBOLISM/INFARCT 07/07/2016 LONNY PAYNE, JAG J Ot 785. 1 PALPITATIONS 07/07/2016 LONNY PAYNE, JAG J Ot 786. 05 SHORTNESS OF BREATH 07/07/2016 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 Ot 346.90 MIGRAINE UNSPECIFIED W/O INTRACT MGRN W/ 07/07/2016 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 Ot 369.9 VISUAL LOSS NOS 07/07/2016 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 Ot 041.00 07/07/2016 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 Ot V58.61 07/07/2016 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 Ot E04.1 NONTOXIC SINGLE THYROID NODULE 07/07/2016 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 Ot R10.2 PELVIC AND PERINEAL PAIN 07/07/2016 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 Ot E86.0 DEHYDRATION 07/07/2016 LAURA ANGELES ANP Ot I26.99 OTHER PULMONARY EMBOLISM WITHOUT ACUTE C 07/07/2016 LAURA ANGELES ANP Ot I82.409 ACUTE EMBOLISM AND THOMBOS UNSP DEEP VN 07/07/2016 LAURA ANGELES ANP Ot M79.1 MYALGIA 07/07/2016 LAURA ANGELES ANP Ot R50.9 FEVER, UNSPECIFIED 07/07/2016 LAURA ANGELES ANP Ot R53.82 CHRONIC FATIGUE, UNSPECIFIED 07/07/2016 LARRY MCKEON Kelly BOTANY PROFESSOR Ot R22.1 LOCALIZED SWELLING, MASS AND LUMP, NECK 07/07/2016 BRENNAN CLARK KRISTINE S Ot Z12.31 ENCNTR SCREEN MAMMOGRAM FOR MALIGNANT NE 07/07/2016 CHANTELLE PYANE, SHAUNNA Swift Ot I26.99 OTHER PULMONARY EMBOLISM WITHOUT ACUTE C 07/07/2016 CHANTELLE PAYNE, SHAUNNA Swift Ot R59.0 LOCALIZED ENLARGED LYMPH NODES 07/09/2016 RICK PEREA MD Ot F17.210 NICOTINE DEPENDENCE, CIGARETTES, UNCOMPL 07/09/2016 RICK PEREA MD Ot I10 ESSENTIAL (PRIMARY) HYPERTENSION 07/09/2016 RICK PEREA MD, Ot J40 BRONCHITIS, NOT SPECIFIED ACUTE OR CH 07/09/2016 RICK PEREA MD Ot R06.02 SHORTNESS OF BREATH 07/09/2016 RICK PEREA MD Ot Z79.01 MCC (CURRENT) USE OF ANTICOAGULANT 07/09/2016 RICK PEREA MD Ot Z79.899 OTHER MCC (CURRENT) DRUG THERAPY 07/09/2016 RICK PREEA MD Ot Z86.711 PERSONAL HISTORY OF PULMONARY EMBOLISM 02/10/2017 AMPARO WHITE APRN Ot F41 .9 ANXIETY DISORDER, UNSPECIFIED 02/10/2017 AMPARO WHITE APRN Ot G43.909 MIGRAINE, UNSP, NOT INTRACTABLE, WITHOUT 02/10/2017 AMPARO WHITE APRN Ot I10 ESSENTIAL (PRIMARY) HYPERTENSION 02/10/2017 AMPARO WHITE APRN Ot R10 .9 UNSPECIFIED ABDOMINAL PAIN 02/10/2017 AMPARO WHITE APRN Ot Z79.01 MCC (CURRENT) USE OF ANTICOAGULANT 02/10/2017 AMPARO WHITE APRN Ot Z85.42 PERSONAL HISTORY OF MALIGNANT NEOPLASM O 02/10/2017 AMPARO WHITE APRN Ot Z86.718 PERSONAL HISTORY OF OTHER VENOUS THROMBO 02/10/2017 AMPARO WHITE APRN Ot Z87.19 PERSONAL HISTORY OF OTHER DISEASES OF TH 02/10/2017 AMPARO WHITE BOTANY PROFESSOR Ot Z87.59 PERSONAL HISTORY OF COMP OF PREG, CHLDBR 02/10/2017 AMPARO WHITE BOTANY PROFESSOR Ot Z90.710 ACQUIRED ABSENCE OF BOTH CERVIX AND UTER 03/04/2017 ORENDER DO, KRISTINE S Ot G93.2 BENIGN INTRACRANIAL HYPERTENSION 03/04/2017 ORENDER DO, KRISTINE S Ot R10.31 RIGHT LOWER QUADRANT PAIN 03/12/2017 ORENDER DO, KRISTINE S Ot G93.2 BENIGN INTRACRANIAL HYPERTENSION 03/12/2017 ORENDER DO, KRISTINE S Ot R10.31 RIGHT LOWER QUADRANT PAIN 03/19/2017 ORENDER DO, KRISTINE S Ot 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, UNSPECIFIED 03/19/2017 ORENDER DO, KRISTINE S Ot M54.2 CERVICALGIA 03/19/2017 ORENDER DO, KRISTINE S Ot R59.0 LOCALIZED ENLARGED LYMPH NODES 04/11/2017 ORENDER DO, KRISTINE S Ot 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, UNSPECIFIED 04/11/2017 ORENDER DO, KRISTINE S Ot M54.2 CERVICALGIA 04/11/2017 ORENDER DO, KRISTINE S Ot R59.0 LOCALIZED ENLARGED LYMPH NODES 07/22/2017 ORENDER DO, KRISTINE S Ot R05 COUGH 07/22/2017 ORENDER DO, KRISTINE S Ot R59.0 LOCALIZED ENLARGED LYMPH NODES 10/06/2017 ORENDER DO, KRISTINE S Ot 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, UNSPECIFIED 10/06/2017 ORENDER DO, KRISTINE S Ot M54.2 CERVICALGIA 10/06/2017 ORENDER DO, KRISTINE S Ot R59.0 LOCALIZED ENLARGED LYMPH NODES 10/06/2017 ORENDER DO, KRISTINE S Ot G93.2 BENIGN INTRACRANIAL HYPERTENSION 10/06/2017 ORENDER DO, KRISTINE S Ot R10.31 RIGHT LOWER QUADRANT PAIN 10/06/2017 ORENDER DO, KRISTINE S Ot R05 COUGH 10/06/2017 ORENDER DO, KRISTINE S Ot R59.0 LOCALIZED ENLARGED LYMPH NODES 10/07/2017 VICKY, TAMMY R BOTANY PROFESSOR Ot M25.511 PAIN IN RIGHT SHOULDER 10/07/2017 VICKY, TAMMY R BOTANY PROFESSOR Ot M25.511 PAIN IN RIGHT SHOULDER 10/12/2017 VICKY, TAMMY R BOTANY PROFESSOR Ot M25.511 PAIN IN RIGHT SHOULDER 10/15/2017 VICKY, TAMMY R BOTANY PROFESSOR Ot Z12.31 ENCNTR SCREEN MAMMOGRAM FOR MALIGNANT NE 10/15/2017 VICKY, TAMMY R BOTANY PROFESSOR Ot Z12.31 ENCNTR SCREEN MAMMOGRAM FOR MALIGNANT NE 10/22/2017 VICKY, TAMMY R BOTANY PROFESSOR Ot M25.511 PAIN IN RIGHT SHOULDER 10/29/2017 VICKY, TAMMY R BOTANY PROFESSOR Ot Z12.31 ENCNTR SCREEN MAMMOGRAM FOR MALIGNANT NE 11/13/2017 VICKY, TAMMY R BOTANY PROFESSOR Ot M25.511 PAIN IN RIGHT SHOULDER 03/09/2018 ORENDER DO, KRISTINE S Ot 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, UNSPECIFIED 03/09/2018 YAHIRNDER DO, KRISTINE S Ot M54.2 CERVICALGIA 03/09/2018 ORENDER DO, KRISTINE S Ot R59.0 LOCALIZED ENLARGED LYMPH NODES 03/09/2018 ORENDER DO, KRISTINE S Ot G93.2 BENIGN INTRACRANIAL HYPERTENSION 03/09/2018 ORENDER DO, KRISTINE S Ot R10.31 RIGHT LOWER QUADRANT PAIN 03/09/2018 ORENDER DO, KRISTINE S Ot R05 COUGH 03/09/2018 ORENDER DO, KRISTINE S Ot R59.0 LOCALIZED ENLARGED LYMPH NODES 03/09/2018 VICKY, TAMMY R BOTANY PROFESSOR Ot M25.511 PAIN IN RIGHT SHOULDER 03/09/2018 VICKY, TAMMY R BOTANY PROFESSOR Ot Z12.31 ENCNTR SCREEN MAMMOGRAM FOR MALIGNANT NE 03/09/2018 VICKY, TAMMY R BOTANY PROFESSOR Ot M25.511 PAIN IN RIGHT SHOULDER 04/10/2018 JAG MUKHERJEE MD Ot I26. 99 OTHER PULMONARY EMBOLISM WITHOUT ACUTE C 04/10/2018 JAG MUKHERJEE MD Ot I34. 0 NONRHEUMATIC MITRAL (VALVE) INSUFFICIENC 04/10/2018 JAG MUKHERJEE MD Ot R00. 2 PALPITATIONS 04/10/2018 JAG MUKHERJEE MD Ot R06. 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 1 TOBACCO USE DISORDER 05/10/2018 JAG MUKHERJEE MD Ot 415. 19 OTH PULMON EMBOLISM/INFARCT 05/10/2018 JAG MUKHERJEE MD Ot 785. 1 PALPITATIONS 05/10/2018 JAG MUKHERJEE MD Ot 786. 05 SHORTNESS OF BREATH 05/10/2018 ARTIE RENE L SINGING TEACHER Ot 041.00 05/10/2018 CHERIE RENEIA L SINGING TEACHER Ot V58.61 05/10/2018 CHERIE RENEIA L SINGING TEACHER Ot E86.0 DEHYDRATION 05/10/2018 LAURA ANGELES ANP Ot I26.99 OTHER PULMONARY EMBOLISM WITHOUT ACUTE C 05/10/2018 LAURA ANGELES ANP Ot I82.409 ACUTE EMBOLISM AND THOMBOS UNSP DEEP VN 05/10/2018 LAURA ANGELES ANP Ot M79.1 MYALGIA 05/10/2018 LAURA ANGELES ANP Ot R50.9 FEVER, UNSPECIFIED 05/10/2018 LAURA ANGELES ANP Ot R53.82 CHRONIC FATIGUE, UNSPECIFIED 05/10/2018 VAMSI, NED SINGING TEACHER Ot F41.9 ANXIETY DISORDER, UNSPECIFIED 05/10/2018 VAMSINED GarciaP Ot G43.909 MIGRAINE, UNSP, NOT INTRACTABLE, WITHOUT 05/10/2018 VAMSINED Garcia SINGING TEACHER Ot G93.2 BENIGN INTRACRANIAL HYPERTENSION 05/10/2018 VAMSINED GarciaP Ot H70.92 UNSPECIFIED MASTOIDITIS, LEFT EAR 05/10/2018 VAMSINED Garcia SINGING TEACHER Ot I10 ESSENTIAL (PRIMARY) HYPERTENSION 05/10/2018 VAMSINED Garcia SINGING TEACHER Ot M26.622 ARTHRALGIA OF LEFT TEMPOROMANDIBULAR AMEENA 05/10/2018 NED AGUSTIN SINGING TEACHER Ot R68.84 JAW PAIN 05/10/2018 NED AGUSTIN SINGING TEACHER Ot 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 05/10/2018 NED AGUSTIN SINGING TEACHER Ot Z85.42 PERSONAL HISTORY OF MALIGNANT NEOPLASM O 05/10/2018 NED AGUSTIN SINGING TEACHER Ot Z86.711 PERSONAL HISTORY OF PULMONARY EMBOLISM 05/10/2018 NED AGUSTIN SINGING TEACHER Ot Z87.19 PERSONAL HISTORY OF OTHER DISEASES OF TH 05/10/2018 VAMSINED Garcia SINGING TEACHER Ot Z88.0 ALLERGY STATUS TO PENICILLIN 05/10/2018 VAMSI NED SINGING TEACHER Ot Z88.2 ALLERGY STATUS TO SULFONAMIDES STATUS 05/10/2018 NED AGUSTIN SINGING TEACHER Ot Z88.6 ALLERGY STATUS TO ANALGESIC AGENT STATUS 05/10/2018 NED AGUSTIN SINGING TEACHER Ot Z88.8 ALLERGY STATUS TO OTH DRUG/MEDS/BIOL SUB 05/10/2018 NED AGUSTIN SINGING TEACHER Ot Z90.49 ACQUIRED ABSENCE OF OTHER SPECIFIED PART 05/10/2018 VAMSI, NED SINGING TEACHER Ot Z90.710 ACQUIRED ABSENCE OF BOTH CERVIX AND UTER 05/10/2018 VAMSINED Garcia SINGING TEACHER Ot Z98.890 OTHER SPECIFIED POSTPROCEDURAL STATES 05/12/2018 NED AGUSTIN SINGING TEACHER Ot F41.9 ANXIETY DISORDER, UNSPECIFIED 05/12/2018 NED AGUSTIN SINGING TEACHER Ot G43.909 MIGRAINE, UNSP, NOT INTRACTABLE, WITHOUT 05/12/2018 VAMSINED Garcia SINGING TEACHER Ot G93.2 BENIGN INTRACRANIAL HYPERTENSION 05/12/2018 NED AGUSTIN SINGING TEACHER Ot H70.92 UNSPECIFIED MASTOIDITIS, LEFT EAR 05/12/2018 VAMSI, NED SINGING TEACHER Ot I10 ESSENTIAL (PRIMARY) HYPERTENSION 05/12/2018 VAMSI, NED SINGING TEACHER Ot M26.622 ARTHRALGIA OF LEFT TEMPOROMANDIBULAR AMEENA 05/12/2018 VAMSI, NED SINGING TEACHER Ot R68.84 JAW PAIN 05/12/2018 VAMSI, NED SINGING TEACHER Ot Z79.01 MCC (CURRENT) USE OF ANTICOAGULANT 05/12/2018 VASMI, NED SINGING TEACHER Ot Z85.42 PERSONAL HISTORY OF MALIGNANT NEOPLASM O 05/12/2018 VAMSI, NED SINGING TEACHER Ot Z86.711 PERSONAL HISTORY OF PULMONARY EMBOLISM 05/12/2018 VAMSI, NED SINGING TEACHER Ot Z87.19 PERSONAL HISTORY OF OTHER DISEASES OF TH 05/12/2018 VAMSI, NED SINGING TEACHER Ot Z88.0 ALLERGY STATUS TO PENICILLIN 05/12/2018 VAMSI, NED SINGING TEACHER Ot Z88.2 ALLERGY STATUS TO SULFONAMIDES STATUS 05/12/2018 VAMSI, NED SINGING TEACHER Ot Z88.6 ALLERGY STATUS TO ANALGESIC AGENT STATUS 05/12/2018 VAMSINED Garcia SINGING TEACHER Ot Z88.8 ALLERGY STATUS TO OTH DRUG/MEDS/BIOL SUB 05/12/2018 VAMSI, NED SINGING TEACHER Ot Z90.49 ACQUIRED ABSENCE OF OTHER SPECIFIED PART 05/12/2018 VAMSI, NED SINGING TEACHER Ot Z90.710 ACQUIRED ABSENCE OF BOTH CERVIX AND UTER 05/12/2018 VAMSI, NED SINGING TEACHER Ot Z98.890 OTHER SPECIFIED POSTPROCEDURAL STATES 05/16/2018 VAMSI, NED SINGING TEACHER Ot F41.9 ANXIETY DISORDER, UNSPECIFIED 05/16/2018 VAMSI, NED SINGING TEACHER Ot G43.909 MIGRAINE, UNSP, NOT INTRACTABLE, WITHOUT 05/16/2018 VAMSI, NED SINGING TEACHER Ot G93.2 BENIGN INTRACRANIAL HYPERTENSION 05/16/2018 VAMSI, NED SINGING TEACHER Ot H70.92 UNSPECIFIED MASTOIDITIS, LEFT EAR 05/16/2018 VAMSI, NED SINGING TEACHER Ot I10 ESSENTIAL (PRIMARY) HYPERTENSION 05/16/2018 VAMSI, NED SINGING TEACHER Ot M26.622 ARTHRALGIA OF LEFT TEMPOROMANDIBULAR AMEENA 05/16/2018 VAMSI, NED SINGING TEACHER Ot R68.84 JAW PAIN 05/16/2018 VAMSINED Garcia SINGING TEACHER Ot 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 05/16/2018 END AGUSTNIP Ot Z85.42 PERSONAL HISTORY OF MALIGNANT NEOPLASM O 05/16/2018 NED AGUSTINP Ot Z86.711 PERSONAL HISTORY OF PULMONARY EMBOLISM 05/16/2018 NED AGUSTINP Ot Z87.19 PERSONAL HISTORY OF OTHER DISEASES OF TH 05/16/2018 NED AGUSTINP Ot Z88.0 ALLERGY STATUS TO PENICILLIN 05/16/2018 NED AGUSTINP Ot Z88.2 ALLERGY STATUS TO SULFONAMIDES STATUS 05/16/2018 NED AGUSTINP Ot Z88.6 ALLERGY STATUS TO ANALGESIC AGENT STATUS 05/16/2018 NED AGUSTINP Ot Z88.8 ALLERGY STATUS TO OTH DRUG/MEDS/BIOL SUB 05/16/2018 NED AGUSTINP Ot Z90.49 ACQUIRED ABSENCE OF OTHER SPECIFIED PART 05/16/2018 VAMSI NED SINGING TEACHER Ot Z90.710 ACQUIRED ABSENCE OF BOTH CERVIX AND UTER 05/16/2018 NED AGUSTINP Ot Z98.890 OTHER SPECIFIED POSTPROCEDURAL STATES 05/28/2018 JAG MUKHERJEE MD Ot I26. 99 OTHER PULMONARY EMBOLISM WITHOUT ACUTE C 05/28/2018 JAG MUKHERJEE MD Ot I34. 0 NONRHEUMATIC MITRAL (VALVE) INSUFFICIENC 05/28/2018 JAG MUKHERJEE MD Ot R00. 2 PALPITATIONS 05/28/2018 JAG MUKHERJEE MD Ot R06. 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 99 OTHER PULMONARY EMBOLISM WITHOUT ACUTE C 06/06/2018 LONNY PAYNE, JAG Garcia Ot I34. 0 NONRHEUMATIC MITRAL (VALVE) INSUFFICIENC 06/06/2018 JAG MUKHERJEE MD Ot R00. 2 PALPITATIONS 06/06/2018 LONNY PAYNE, JAG Garcia Ot R06. 02 SHORTNESS OF BREATH 06/06/2018 LONNY PAYNE, JAG Garcia Ot R42 DIZZINESS AND GIDDINESS 07/03/2018 TAMMY PERRY R BOTANY PROFESSOR Ot B99.9 UNSPECIFIED INFECTIOUS DISEASE 07/03/2018 TAMMY PERRY R BOTANY PROFESSOR Ot R79.89 OTHER SPECIFIED ABNORMAL FINDINGS OF BLO 07/07/2018 TAMMY PERRY BOTANY PROFESSOR Ot B99.9 UNSPECIFIED INFECTIOUS DISEASE 07/07/2018 TAMMY PERRY R BOTANY PROFESSOR Ot R79.89 OTHER SPECIFIED ABNORMAL FINDINGS OF BLO 07/18/2018 SAMIRA PALACIOS Ot F41.9 ANXIETY DISORDER, UNSPECIFIED 07/18/2018 SAMIRA PALACIOS Ot G43.909 MIGRAINE, UNSP, NOT INTRACTABLE, WITHOUT 07/18/2018 SAMIRA PALACIOS Ot I10 ESSENTIAL (PRIMARY) HYPERTENSION 07/18/2018 SAMIRA PALACIOS Ot K04.7 PERIAPICAL ABSCESS WITHOUT SINUS 07/18/2018 SAMIRA PALACIOS Ot K21.9 GASTRO-ESOPHAGEAL REFLUX DISEASE WITHOUT 07/18/2018 SAMIRA PALACIOS Ot K58.9 IRRITABLE BOWEL SYNDROME WITHOUT DIARRHE 07/18/2018 SAMIRA PALACIOS Ot Z79.01 MCC (CURRENT) USE OF ANTICOAGULANT 07/18/2018 SAMIRA PALACIOS Ot Z85.42 PERSONAL HISTORY OF MALIGNANT NEOPLASM O 07/18/2018 SAMIRA PALACIOS Ot Z86.711 PERSONAL HISTORY OF PULMONARY EMBOLISM 07/18/2018 SAMIRA PALACIOS Ot Z87.19 PERSONAL HISTORY OF OTHER DISEASES OF TH 07/18/2018 SAMIRA PALACIOS Ot Z87.448 PERSONAL HISTORY OF OTHER DISEASES OF UR 07/18/2018 SAMIRA PALACIOS Ot Z87.59 PERSONAL HISTORY OF COMP OF PREG, CHLDBR 07/18/2018 SAMIRA PALACIOS Ot Z88.0 ALLERGY STATUS TO PENICILLIN 07/18/2018 SAMIRA PALACIOS Ot Z88.2 ALLERGY STATUS TO SULFONAMIDES STATUS 07/18/2018 SAMIRA PALACIOS Ot Z88.6 ALLERGY STATUS TO ANALGESIC AGENT STATUS 07/18/2018 SAMIRA PALACIOS Ot Z88.8 ALLERGY STATUS TO OTH DRUG/MEDS/BIOL SUB 07/18/2018 SAMIRA PALACIOS Ot Z90.49 ACQUIRED ABSENCE OF OTHER SPECIFIED PART 07/18/2018 SAMIRA PALACIOS Ot Z90.710 ACQUIRED ABSENCE OF BOTH CERVIX AND UTER 07/18/2018 SAMIRA PALACIOS Ot Z98.890 OTHER SPECIFIED POSTPROCEDURAL STATES 07/20/2018 SAMIRA PALACIOS Ot F41.9 ANXIETY DISORDER, UNSPECIFIED 07/20/2018 SAMIRA PALACIOS Ot G43.909 MIGRAINE, UNSP, NOT INTRACTABLE, WITHOUT 07/20/2018 SAMIRA PALACIOS Ot I10 ESSENTIAL (PRIMARY) HYPERTENSION 07/20/2018 SAMIRA PALACIOS Ot K04.7 PERIAPICAL ABSCESS WITHOUT SINUS 07/20/2018 SAMIRA PALACIOS Ot K21.9 GASTRO-ESOPHAGEAL REFLUX DISEASE WITHOUT 07/20/2018 SAMIRA PALACIOS Ot K58.9 IRRITABLE BOWEL SYNDROME WITHOUT DIARRHE 07/20/2018 SAMIRA PALACIOS Ot 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 07/20/2018 SAMIRA PALACIOS Ot Z85.42 PERSONAL HISTORY OF MALIGNANT NEOPLASM O 07/20/2018 SAMIRA PALACIOS Ot Z86.711 PERSONAL HISTORY OF PULMONARY EMBOLISM 07/20/2018 SAMIRA PALACIOS Ot Z87.19 PERSONAL HISTORY OF OTHER DISEASES OF TH 07/20/2018 SAMIRA PALACIOS Ot Z87.448 PERSONAL HISTORY OF OTHER DISEASES OF UR 07/20/2018 SAMIRA PALACIOS Ot Z87.59 PERSONAL HISTORY OF COMP OF PREG, CHLDBR 07/20/2018 SAMIRA PALACIOS Ot Z88.0 ALLERGY STATUS TO PENICILLIN 07/20/2018 SAMIRA PALACIOS Ot Z88.2 ALLERGY STATUS TO SULFONAMIDES STATUS 07/20/2018 SAMIRA PALACIOS Ot Z88.6 ALLERGY STATUS TO ANALGESIC AGENT STATUS 07/20/2018 SAMIRA PALACIOS Ot Z88.8 ALLERGY STATUS TO OT DRUG/MEDS/BIOL SUB 07/20/2018 SAMIRA PALACIOS Ot Z90.49 ACQUIRED ABSENCE OF OTHER SPECIFIED PART 07/20/2018 SAMIRA PALACIOS Ot Z90.710 ACQUIRED ABSENCE OF BOTH CERVIX AND UTER 07/20/2018 SAMIRA PALACIOS Ot Z98.890 OTHER SPECIFIED POSTPROCEDURAL STATES 09/11/2018 ORENDER DO KRISTINE S Ot R22.1 LOCALIZED SWELLING, MASS AND LUMP, NECK 09/11/2018 YAHIRNDER KRISTINE S Ot Z80.8 FAMILY HISTORY OF MALIGNANT NEOPLASM OF 09/16/2018 LIZZY AIMEE CLARKLINE S Ot R22.1 LOCALIZED SWELLING, MASS AND LUMP, NECK 09/16/2018 LIZZY KRISTINE S Ot Z80.8 FAMILY HISTORY OF MALIGNANT NEOPLASM OF 03/14/2019 LANA COLLIER Ot 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 1 TOBACCO USE DISORDER 03/14/2019 JAG MUKHERJEE MD Ot 415. 19 OTH PULMON EMBOLISM/INFARCT 03/14/2019 JAG MUKHERJEE MD Ot 785. 1 PALPITATIONS 03/14/2019 JAG MUKHERJEE MD Ot 786. 05 SHORTNESS OF BREATH 03/14/2019 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 Ot 041.00 03/14/2019 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 Ot V58.61 03/14/2019 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 Ot E86.0 DEHYDRATION 03/14/2019 LAURA ANGELES ANP Ot I26.99 OTHER PULMONARY EMBOLISM WITHOUT ACUTE C 03/14/2019 LAURA ANGELES Ot I82.409 ACUTE EMBOLISM AND THOMBOS UNSP DEEP VN 03/14/2019 LAURA ANGELES Ot M79.1 MYALGIA 03/14/2019 LAURA ANGELES Ot R50.9 FEVER, UNSPECIFIED 03/14/2019 LAURA ANGELES Ot R53.82 CHRONIC FATIGUE, UNSPECIFIED 03/14/2019 GÓMEZ MCMANUS Ot F17.210 NICOTINE DEPENDENCE, CIGARETTES, UNCOMPL 03/14/2019 GÓMEZ MCMANUS Ot F41.9 ANXIETY DISORDER, UNSPECIFIED 03/14/2019 GÓMEZ MCMANUS Ot G43.909 MIGRAINE, UNSP, NOT INTRACTABLE, WITHOUT 03/14/2019 GÓMEZ MCMANUS Ot I 10 ESSENTIAL (PRIMARY) HYPERTENSION 03/14/2019 GÓMEZ MCMANUS Ot K58.9 IRRITABLE BOWEL SYNDROME WITHOUT DIARRHE 03/14/2019 GÓMEZ MCMANUS Ot M79.7 FIBROMYALGIA 03/14/2019 GÓMEZ MCMANUS Ot R07.89 OTHER CHEST PAIN 03/14/2019 GÓMEZ MCMANUS Ot Z79.01 MCC (CURRENT) USE OF ANTICOAGULANT 03/14/2019 GÓMEZ MCMANUS Ot Z85.42 PERSONAL HISTORY OF MALIGNANT NEOPLASM O 03/14/2019 GÓMEZ MCMANUS Ot Z86.711 PERSONAL HISTORY OF PULMONARY EMBOLISM 03/14/2019 GÓMEZ MCMANUS Ot Z88.0 ALLERGY STATUS TO PENICILLIN 03/14/2019 GÓMEZ MCMANUS Ot Z88.1 ALLERGY STATUS TO OTHER ANTIBIOTIC AGENT 03/14/2019 GÓMEZ MCMANUS Ot Z88.2 ALLERGY STATUS TO SULFONAMIDES STATUS 03/14/2019 GÓMEZ MCMANUS Ot Z88.5 ALLERGY STATUS TO NARCOTIC AGENT STATUS 03/14/2019 GÓMEZ MCMANUS Ot Z88.8 ALLERGY STATUS TO OTH DRUG/MEDS/BIOL SUB 03/14/2019 GÓMEZ MCMANUS Ot Z90.710 ACQUIRED ABSENCE OF BOTH CERVIX AND UTER 03/14/2019 KRISTINE AMIN DO S Ot 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, UNSPECIFIED 03/14/2019 KRISTINE AMIN DO S Ot M54.2 CERVICALGIA 03/14/2019 BRENNAN CLARK, KRISTINE S Ot R59.0 LOCALIZED ENLARGED LYMPH NODES 03/14/2019 KRISTINE AMIN DO S Ot G93.2 BENIGN INTRACRANIAL HYPERTENSION 03/14/2019 BRENNAN CLARK, KRISTINE S Ot R10.31 RIGHT LOWER QUADRANT PAIN 03/14/2019 KRISTINE AMIN DO S Ot R05 COUGH 03/14/2019 BRENNAN CLARK, KRISTINE S Ot R59.0 LOCALIZED ENLARGED LYMPH NODES 03/14/2019 TAMMY PERRY BOTANY PROFESSOR Ot M25.511 PAIN IN RIGHT SHOULDER 03/14/2019 TAMMY PERRY BOTANY PROFESSOR Ot Z12.31 ENCNTR SCREEN MAMMOGRAM FOR MALIGNANT NE 03/14/2019 JAG MUKHERJEE MD Ot I26. 99 OTHER PULMONARY EMBOLISM WITHOUT ACUTE C 03/14/2019 JAG MUKHERJEE MD Ot I34. 0 NONRHEUMATIC MITRAL (VALVE) INSUFFICIENC 03/14/2019 JAG MUKHERJEE MD Ot R00. 2 PALPITATIONS 03/14/2019 JAG MUKHERJEE MD Ot R06. 02 SHORTNESS OF BREATH 03/14/2019 JAG MUKHERJEE MD Ot R42 DIZZINESS AND GIDDINESS 03/14/2019 LIZZY KRISTINE CLARK S Ot R22.1 LOCALIZED SWELLING, MASS AND LUMP, NECK 03/14/2019 KRISTINE AMIN DO S Ot Z80.8 FAMILY HISTORY OF MALIGNANT NEOPLASM OF 03/16/2019 GÓMEZ MCMANUS Ot F17.210 NICOTINE DEPENDENCE, CIGARETTES, UNCOMPL 03/16/2019 GÓMEZ MCMANUS Ot F41.9 ANXIETY DISORDER, UNSPECIFIED 03/16/2019 GÓMEZ MCMANUS Ot G43.909 MIGRAINE, UNSP, NOT INTRACTABLE, WITHOUT 03/16/2019 GÓMEZ MCMANUS Ot I 10 ESSENTIAL (PRIMARY) HYPERTENSION 03/16/2019 GÓMEZ MCMANUS Ot K58.9 IRRITABLE BOWEL SYNDROME WITHOUT DIARRHE 03/16/2019 GÓMEZ MCMANUS Ot M79.7 FIBROMYALGIA 03/16/2019 GÓMEZ MCMANUS Ot R07.89 OTHER CHEST PAIN 03/16/2019 GÓMEZ MCMANUS Ot 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 03/16/2019 GÓMEZ MCMANUS Ot Z85.42 PERSONAL HISTORY OF MALIGNANT NEOPLASM O 03/16/2019 GÓMEZ MCMANUS Ot Z86.711 PERSONAL HISTORY OF PULMONARY EMBOLISM 03/16/2019 GÓMEZ MCMANUS Ot Z88.0 ALLERGY STATUS TO PENICILLIN 03/16/2019 GÓMEZ MCMANUS Ot Z88.1 ALLERGY STATUS TO OTHER ANTIBIOTIC AGENT 03/16/2019 GÓMEZ MCMANUS Ot Z88.2 ALLERGY STATUS TO SULFONAMIDES STATUS 03/16/2019 GÓMEZ MCMANUS Ot Z88.5 ALLERGY STATUS TO NARCOTIC AGENT STATUS 03/16/2019 GÓMEZ MCMANUS Ot Z88.8 ALLERGY STATUS TO OTH DRUG/MEDS/BIOL SUB 03/16/2019 GÓMEZ MCMANUS Ot Z90.710 ACQUIRED ABSENCE OF BOTH CERVIX AND UTER 03/16/2019 GÓMEZ MCMANUS Ot F17.210 NICOTINE DEPENDENCE, CIGARETTES, UNCOMPL 03/16/2019 GÓMEZ MCMANUS Ot F41.9 ANXIETY DISORDER, UNSPECIFIED 03/16/2019 GÓMEZ MCMANUS Ot G43.909 MIGRAINE, UNSP, NOT INTRACTABLE, WITHOUT 03/16/2019 GÓMEZ MCMANUS Ot I 10 ESSENTIAL (PRIMARY) HYPERTENSION 03/16/2019 GÓMEZ MCMANUS Ot K58.9 IRRITABLE BOWEL SYNDROME WITHOUT DIARRHE 03/16/2019 GÓMEZ MCMANUS Ot M79.7 FIBROMYALGIA 03/16/2019 GÓMEZ MCMANUS Ot R07.89 OTHER CHEST PAIN 03/16/2019 GÓMEZ MCMANUS Ot Z79.01 MCC (CURRENT) USE OF ANTICOAGULANT 03/16/2019 GÓMEZ MCMANUS Ot Z85.42 PERSONAL HISTORY OF MALIGNANT NEOPLASM O 03/16/2019 GÓMEZ MCMANUS Ot Z86.711 PERSONAL HISTORY OF PULMONARY EMBOLISM 03/16/2019 GÓMEZ MCMANUS Ot Z88.0 ALLERGY STATUS TO PENICILLIN 03/16/2019 GÓMEZ MCMANUS Ot Z88.1 ALLERGY STATUS TO OTHER ANTIBIOTIC AGENT 03/16/2019 GÓMEZ MCMANUS Ot Z88.2 ALLERGY STATUS TO SULFONAMIDES STATUS 03/16/2019 GÓMEZ MCMANUS Ot Z88.5 ALLERGY STATUS TO NARCOTIC AGENT STATUS 03/16/2019 GÓMEZ MCMANUS Ot Z88.8 ALLERGY STATUS TO OTH DRUG/MEDS/BIOL SUB 03/16/2019 GÓMEZ MCMANUS Ot Z90.710 ACQUIRED ABSENCE OF BOTH CERVIX AND UTER 03/20/2019 GÓMEZ MCMANUS Ot F17.210 NICOTINE DEPENDENCE, CIGARETTES, UNCOMPL 03/20/2019 GÓMEZ MCMANUS Ot F41.9 ANXIETY DISORDER, UNSPECIFIED 03/20/2019 GÓMEZ MCMANUS Ot G43.909 MIGRAINE, UNSP, NOT INTRACTABLE, WITHOUT 03/20/2019 GÓMEZ MCMANUS Ot I 10 ESSENTIAL (PRIMARY) HYPERTENSION 03/20/2019 GÓMEZ MCMANUS Ot K58.9 IRRITABLE BOWEL SYNDROME WITHOUT DIARRHE 03/20/2019 GÓMEZ MCMANUS Ot M79.7 FIBROMYALGIA 03/20/2019 GÓMEZ MCMANUS Ot R07.89 OTHER CHEST PAIN 03/20/2019 GÓMEZ MCMANUS Ot Z79.01 MCC (CURRENT) USE OF ANTICOAGULANT 03/20/2019 GÓMEZ MCMANUS Ot Z85.42 PERSONAL HISTORY OF MALIGNANT NEOPLASM O 03/20/2019 GÓMEZ MCMANUS Ot Z86.711 PERSONAL HISTORY OF PULMONARY EMBOLISM 03/20/2019 GÓMEZ MCMANUS Ot Z88.0 ALLERGY STATUS TO PENICILLIN 03/20/2019 GÓMEZ MCMANUS Ot Z88.1 ALLERGY STATUS TO OTHER ANTIBIOTIC AGENT 03/20/2019 GÓMEZ MCMANUS Ot Z88.2 ALLERGY STATUS TO SULFONAMIDES STATUS 03/20/2019 GÓMEZ MCMANUS Ot Z88.5 ALLERGY STATUS TO NARCOTIC AGENT STATUS 03/20/2019 GÓMEZ MCMANUS Ot Z88.8 ALLERGY STATUS TO OTH DRUG/MEDS/BIOL SUB 03/20/2019 GÓMEZ MCMANUS Ot Z90.710 ACQUIRED ABSENCE OF BOTH CERVIX AND UTER 05/14/2019 JAG MUKHERJEE MD Ot R00. 0 TACHYCARDIA, UNSPECIFIED 05/14/2019 JAG MUKHERJEE MD Ot R00. 2 PALPITATIONS 05/14/2019 JAG MUKHERJEE MD Ot R94. 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 99 OTHER PULMONARY EMBOLISM WITHOUT ACUTE C 05/26/2019 JAG MUKHERJEE MD Ot I34. 0 NONRHEUMATIC MITRAL (VALVE) INSUFFICIENC 05/26/2019 JAG MUKHERJEE MD Ot R00. 2 PALPITATIONS 05/26/2019 JAG MUKHERJEE MD Ot R06. 02 SHORTNESS OF BREATH 05/26/2019 JAG MUKHERJEE MD Ot R42 DIZZINESS AND GIDDINESS 05/26/2019 BRENNAN CLARK KRISTINE S Ot R22.1 LOCALIZED SWELLING, MASS AND LUMP, NECK 05/26/2019 BRENNAN CLARK KRISTINE S Ot Z80.8 FAMILY HISTORY OF MALIGNANT NEOPLASM OF 05/26/2019 JAG MUKHERJEE MD Ot R00. 0 TACHYCARDIA, UNSPECIFIED 05/26/2019 JAG MUKHERJEE MD Ot R00. 2 PALPITATIONS 05/26/2019 JAG MUKHERJEE MD Ot R94. 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, LEFT ANKL 05/28/2019 TIFFANIE FOFANA BOTANY PROFESSOR Ot M35 .9 SYSTEMIC INVOLVEMENT OF CONNECTIVE TISSU 05/28/2019 TIFFANIE FOFANA BOTANY PROFESSOR Ot Z79.01 MCC (CURRENT) USE OF ANTICOAGULANT 05/28/2019 TIFFANIE FOFANA BOTANY PROFESSOR Ot Z86.711 PERSONAL HISTORY OF PULMONARY EMBOLISM 05/31/2019 KRISTINE AMIN DO S Ot 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 99 OTHER PULMONARY EMBOLISM WITHOUT ACUTE C 05/31/2019 JAG MUKHERJEE MD Ot I34. 0 NONRHEUMATIC MITRAL (VALVE) INSUFFICIENC 05/31/2019 JAG MUKHERJEE MD Ot R00. 2 PALPITATIONS 05/31/2019 JAG MUKHERJEE MD Ot R06. 02 SHORTNESS OF BREATH 05/31/2019 JAG MUKHERJEE MD Ot R42 DIZZINESS AND GIDDINESS 05/31/2019 KRISTINE AMIN DO Ot R22.1 LOCALIZED SWELLING, MASS AND LUMP, NECK 05/31/2019 KRISTINE AMIN DO Ot Z80.8 FAMILY HISTORY OF MALIGNANT NEOPLASM OF 05/31/2019 LONNY PAYNE, JAG Garcia Ot R00. 0 TACHYCARDIA, UNSPECIFIED 05/31/2019 JAG MUKHERJEE MD Ot R00. 2 PALPITATIONS 05/31/2019 JAG MUKHERJEE MD Ot R94. 31 ABNORMAL ELECTROCARDIOGRAM [ECG] [EKG] 05/31/2019 TIFFANIE FOFANA BOTANY PROFESSOR Ot B99 .8 OTHER INFECTIOUS DISEASE 05/31/2019 TIFFANIE FOFANA BOTANY PROFESSOR Ot C80 .1 MALIGNANT (PRIMARY) NEOPLASM, UNSPECIFIE 05/31/2019 TIFFANIE FOFANA BOTANY PROFESSOR Ot D68.61 ANTIPHOSPHOLIPID SYNDROME 05/31/2019 TIFFANIE FOFANA BOTANY PROFESSOR Ot F32 .9 MAJOR DEPRESSIVE DISORDER, SINGLE EPISOD 05/31/2019 TIFFANIE FOFANA BOTANY PROFESSOR Ot J01.90 ACUTE SINUSITIS, UNSPECIFIED 05/31/2019 TIFFANIE FOFANA BOTANY PROFESSOR Ot M00.272 OTHER STREPTOCOCCAL ARTHRITIS, LEFT ANKL 05/31/2019 TIFFANIE FOFANA BOTANY PROFESSOR Ot M35 .9 SYSTEMIC INVOLVEMENT OF CONNECTIVE TISSU 05/31/2019 TIFFANIE FOFANA BOTANY PROFESSOR Ot Z79.01 MCC (CURRENT) USE OF ANTICOAGULANT 05/31/2019 TIFFANIE FOFANA BOTANY PROFESSOR Ot Z86.711 PERSONAL HISTORY OF PULMONARY EMBOLISM 05/31/2019 KRISTINE AMIN DO S Ot 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 99 OTHER PULMONARY EMBOLISM WITHOUT ACUTE C 05/31/2019 JAG MUKHERJEE MD Ot I34. 0 NONRHEUMATIC MITRAL (VALVE) INSUFFICIENC 05/31/2019 JAG MUKHERJEE MD Ot R00. 2 PALPITATIONS 05/31/2019 JAG MUKHERJEE MD Ot R06. 02 SHORTNESS OF BREATH 05/31/2019 JAG MUKHERJEE MD, Ot R42 DIZZINESS AND GIDDINESS 05/31/2019 KRISTINE AMIN DO Ot R22.1 LOCALIZED SWELLING, MASS AND LUMP, NECK 05/31/2019 KRISTINE AMIN DO Ot Z80.8 FAMILY HISTORY OF MALIGNANT NEOPLASM OF 05/31/2019 JAG MUKHERJEE MD Ot R00. 0 TACHYCARDIA, UNSPECIFIED 05/31/2019 JAG MUKHERJEE MD Ot R00. 2 PALPITATIONS 05/31/2019 JAG MUKHERJEE MD Ot R94. 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 0 TACHYCARDIA, UNSPECIFIED 06/02/2019 JAG MUKHERJEE MD Ot R00. 2 PALPITATIONS 06/02/2019 JAG MUKHERJEE MD Ot R94. 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, UNSPECIFIED 06/17/2019 YAHIRNDER DO, KRISTINE S Ot M54.2 CERVICALGIA 06/17/2019 YAHIRNDER DO, KRISTINE S Ot R59.0 LOCALIZED ENLARGED LYMPH NODES 06/17/2019 YAHIRND DO, KRISTINE S Ot G93.2 BENIGN INTRACRANIAL HYPERTENSION 06/17/2019 [facility] KRISTINE S Ot R10.31 RIGHT LOWER QUADRANT PAIN 06/17/2019 YAHIRND DO, KRISTINE S Ot R05 COUGH 06/17/2019 YAHIRND , KRISTINE S Ot R59.0 LOCALIZED ENLARGED LYMPH NODES 06/17/2019 TAMMY PERRY BOTANY PROFESSOR Ot M25.511 PAIN IN RIGHT SHOULDER 06/17/2019 TAMMY PERRY BOTANY PROFESSOR Ot Z12.31 ENCNTR SCREEN MAMMOGRAM FOR MALIGNANT NE 06/17/2019 JAG MUKHERJEE MD Ot I26. 99 OTHER PULMONARY EMBOLISM WITHOUT ACUTE C 06/17/2019 JAG MUKHERJEE MD Ot I34. 0 NONRHEUMATIC MITRAL (VALVE) INSUFFICIENC 06/17/2019 JAG MUKHERJEE MD Ot R00. 2 PALPITATIONS 06/17/2019 JAG MUKHERJEE MD Ot R06. 02 SHORTNESS OF BREATH 06/17/2019 JAG MUKHERJEE MD Ot R42 DIZZINESS AND GIDDINESS 06/17/2019 LIZZY , KRISTINE S Ot R22.1 LOCALIZED SWELLING, MASS AND LUMP, NECK 06/17/2019 LIZZY NEVA CLARKKRISTINE S Ot Z80.8 FAMILY HISTORY OF MALIGNANT NEOPLASM OF 06/17/2019 JAG MUKHERJEE MD Ot R00. 0 TACHYCARDIA, UNSPECIFIED 06/17/2019 JAG MUKHERJEE MD Ot R00. 2 PALPITATIONS 06/17/2019 JAG MUKHERJEE MD Ot R94. 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.272 OTHER STREPTOCOCCAL ARTHRITIS, LEFT ANKL 06/17/2019 TIFFANIE FOFANA BOTANY PROFESSOR Ot M35 .9 SYSTEMIC INVOLVEMENT OF CONNECTIVE TISSU 06/17/2019 TIFFANIE FOFANA BOTANY PROFESSOR Ot 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 06/17/2019 TIFFANIE FOFANA BOTANY PROFESSOR Ot Z86.711 PERSONAL HISTORY OF PULMONARY EMBOLISM 06/18/2019 MITCHELL IBARRA BOTANY PROFESSOR Ot Z12.31 ENCNTR SCREEN MAMMOGRAM FOR MALIGNANT NE 07/05/2019 Ot Z12.31 ENC NTR SCREEN MAMMOGRAM FOR MALIGNANT NE 07/05/2019 ORENDER DO, KRISTINE S Ot 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, UNSPECIFIED 07/05/2019 ORENDER DO, KRISTINE S Ot M54.2 CERVICALGIA 07/05/2019 ORENDER DO, KRISTINE S Ot R59.0 LOCALIZED ENLARGED LYMPH NODES 07/05/2019 ORENDER DO, KRISTINE S Ot G93.2 BENIGN INTRACRANIAL HYPERTENSION 07/05/2019 ORENDER DO, KRISTINE S Ot R10.31 RIGHT LOWER QUADRANT PAIN 07/05/2019 ORENDER DO, KRISTINE S Ot R05 COUGH 07/05/2019 ORENDER DO, KRISTINE S Ot R59.0 LOCALIZED ENLARGED LYMPH NODES 07/05/2019 VICKYTAMMY ARANDA R BOTANY PROFESSOR Ot M25.511 PAIN IN RIGHT SHOULDER 07/05/2019 VICKYTAMMY ARANDA BOTANY PROFESSOR Ot Z12.31 ENCNTR SCREEN MAMMOGRAM FOR MALIGNANT NE 07/05/2019 LONNY PAYNE, JAG Garcia Ot I26. 99 OTHER PULMONARY EMBOLISM WITHOUT ACUTE C 07/05/2019 JAG MUKHERJEE MD Ot I34. 0 NONRHEUMATIC MITRAL (VALVE) INSUFFICIENC 07/05/2019 JAG MUKHERJEE MD Ot R00. 2 PALPITATIONS 07/05/2019 JAG MUKHERJEE MD Ot R06. 02 SHORTNESS OF BREATH 07/05/2019 JAG MUKHERJEE MD Ot R42 DIZZINESS AND GIDDINESS 07/05/2019 KRISTINE AMIN DO Ot R22.1 LOCALIZED SWELLING, MASS AND LUMP, NECK 07/05/2019 KRISTINE AMIN DO Ot Z80.8 FAMILY HISTORY OF MALIGNANT NEOPLASM OF 07/05/2019 JAG MUKHERJEE MD Ot R00. 0 TACHYCARDIA, UNSPECIFIED 07/05/2019 JAG MUKHERJEE MD Ot R00. 2 PALPITATIONS 07/05/2019 JAG MUKHERJEE MD Ot R94. 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.272 OTHER STREPTOCOCCAL ARTHRITIS, LEFT ANKL 07/05/2019 TIFFANIE FOFANA BOTANY PROFESSOR Ot M35 .9 SYSTEMIC INVOLVEMENT OF CONNECTIVE TISSU 07/05/2019 TIFFANIE FOFANA BOTANY PROFESSOR Ot Z79.01 MCC (CURRENT) USE OF ANTICOAGULANT 07/05/2019 TIFFANIE FOFANA BOTANY PROFESSOR Ot Z86.711 PERSONAL HISTORY OF PULMONARY EMBOLISM 07/05/2019 Ot Z12.31 ENC NTR SCREEN MAMMOGRAM FOR MALIGNANT NE 07/06/2019 RICK PEREA MD Ot F41.9 ANXIETY DISORDER, UNSPECIFIED 07/06/2019 RICK PEREA MD Ot G43.909 MIGRAINE, UNSP, NOT INTRACTABLE, WITHOUT 07/06/2019 RICK PEREA MD Ot I10 ESSENTIAL (PRIMARY) HYPERTENSION 07/06/2019 RICK PEREA MD, Ot K58.9 IRRITABLE BOWEL SYNDROME WITHOUT DIARRHE 07/06/2019 RICK PEREA MD Ot R00.0 TACHYCARDIA, UNSPECIFIED 07/06/2019 RICK PEREA MD Ot Z77.22 CNTCT W AND EXPSR TO ENVIRON TOBACCO SMO 07/06/2019 RICK PEREA MD Ot 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 07/06/2019 RICK PEREA MD Ot Z85.42 PERSONAL HISTORY OF MALIGNANT NEOPLASM O 07/06/2019 RICK PEREA MD, Ot Z86.711 PERSONAL HISTORY OF PULMONARY EMBOLISM 07/06/2019 RICK PEREA MD, Ot Z86.718 PERSONAL HISTORY OF OTHER VENOUS THROMBO 07/06/2019 RICK PEREA MD Ot Z87.891 PERSONAL HISTORY OF NICOTINE DEPENDENCE 07/06/2019 RICK PEREA MD Ot Z88.0 ALLERGY STATUS TO PENICILLIN 07/06/2019 RICK PEREA MD Ot Z88.1 ALLERGY STATUS TO OTHER ANTIBIOTIC AGENT 07/06/2019 RICK PEREA MD Ot Z88.2 ALLERGY STATUS TO SULFONAMIDES STATUS 07/06/2019 RICK PEREA MD, Ot Z88.5 ALLERGY STATUS TO NARCOTIC AGENT STATUS 07/06/2019 RICK PEREA MD Ot Z88.8 ALLERGY STATUS TO OTH DRUG/MEDS/BIOL SUB 07/06/2019 RICK PEREA MD Ot Z90.710 ACQUIRED ABSENCE OF BOTH CERVIX AND UTER 07/10/2019 RICK PEREA MD Ot F41.9 ANXIETY DISORDER, UNSPECIFIED 07/10/2019 RICK PEREA MD Ot G43.909 MIGRAINE, UNSP, NOT INTRACTABLE, WITHOUT 07/10/2019 RICK PEREA MD Ot I10 ESSENTIAL (PRIMARY) HYPERTENSION 07/10/2019 RICK PEREA MD Ot K58.9 IRRITABLE BOWEL SYNDROME WITHOUT DIARRHE 07/10/2019 RICK PEREA MD Ot R00.0 TACHYCARDIA, UNSPECIFIED 07/10/2019 RICK PEREA MD Ot Z77.22 CNTCT W AND EXPSR TO ENVIRON TOBACCO SMO 07/10/2019 RICK PEREA MD, Ot 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 07/10/2019 RICK PEREA MD, Ot Z85.42 PERSONAL HISTORY OF MALIGNANT NEOPLASM O 07/10/2019 RICK PEREA MD, Ot Z86.711 PERSONAL HISTORY OF PULMONARY EMBOLISM 07/10/2019 RICK PEREA MD, Ot Z86.718 PERSONAL HISTORY OF OTHER VENOUS THROMBO 07/10/2019 RICK PEREA MD, Ot Z87.891 PERSONAL HISTORY OF NICOTINE DEPENDENCE 07/10/2019 RICK PEREA MD, Ot Z88.0 ALLERGY STATUS TO PENICILLIN 07/10/2019 RICK PEREA MD, Ot Z88.1 ALLERGY STATUS TO OTHER ANTIBIOTIC AGENT 07/10/2019 RICK PEREA MD, Ot Z88.2 ALLERGY STATUS TO SULFONAMIDES STATUS 07/10/2019 RICK PEREA MD, Ot Z88.5 ALLERGY STATUS TO NARCOTIC AGENT STATUS 07/10/2019 RICK PEREA MD, Ot Z88.8 ALLERGY STATUS TO OT DRUG/MEDS/BIOL SUB 07/10/2019 RICK PEREA MD, Ot Z90.710 ACQUIRED ABSENCE OF BOTH CERVIX AND UTER 07/13/2019 ALEXANDREA LIM MD Ot F17.210 NICOTINE DEPENDENCE, CIGARETTES, UNCOMPL 07/13/2019 ALEXANDREA LIM MD Ot F41.9 ANXIETY DISORDER, UNSPECIFIED 07/13/2019 ALEXANDREA LIM MD Ot G43.909 MIGRAINE, UNSP, NOT INTRACTABLE, WITHOUT 07/13/2019 ALEXANDREA LIM MD Ot I10 ESSENTIAL (PRIMARY) HYPERTENSION 07/13/2019 ALEXANDREA LIM MD Ot K58.9 IRRITABLE BOWEL SYNDROME WITHOUT DIARRHE 07/13/2019 ALEXANDREA LIM MD Ot M79.7 FIBROMYALGIA 07/13/2019 ALEXANDREA LIM MD Ot R06.00 DYSPNEA, UNSPECIFIED 07/13/2019 ALEXANDREA LIM MD Ot R22.0 LOCALIZED SWELLING, MASS AND LUMP, HEAD 07/13/2019 ALEXANDREA LIM MD, Ot Z79.01 MCC (CURRENT) USE OF ANTICOAGULANT 07/13/2019 RAPHAEL PAYNE, ALEXANDREA Genao Ot Z85.42 PERSONAL HISTORY OF MALIGNANT NEOPLASM O 07/13/2019 ALEXANDREA LIM MD, Ot Z86.711 PERSONAL HISTORY OF PULMONARY EMBOLISM 07/13/2019 RAPHAEL PAYNE, ALEXANDREA Genao Ot Z88.0 ALLERGY STATUS TO PENICILLIN 07/13/2019 RAPHAEL PAYNE, ALEXANDREA Genao Ot Z88.1 ALLERGY STATUS TO OTHER ANTIBIOTIC AGENT 07/13/2019 RAPHAEL PAYNE, ALEXANDREA Genao Ot Z88.2 ALLERGY STATUS TO SULFONAMIDES STATUS 07/13/2019 RAPHAEL PAYNE, ALEXANDREA Genao Ot Z88.5 ALLERGY STATUS TO NARCOTIC AGENT STATUS 07/13/2019 RAPHAEL PAYNE, ALEXANDREA Genao Ot Z88.8 ALLERGY STATUS TO OTH DRUG/MEDS/BIOL SUB 07/13/2019 ALEXANDREA LIM MD Ot Z90.49 ACQUIRED ABSENCE OF OTHER SPECIFIED PART 07/13/2019 ALEXANDREA LIM MD Ot Z90.710 ACQUIRED ABSENCE OF BOTH CERVIX AND UTER 07/13/2019 ORENDER DO, KRISTINE S Ot 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, UNSPECIFIED 07/13/2019 YAHIRNDER DO, KRISTINE S Ot M54.2 CERVICALGIA 07/13/2019 ORENDER DO, KRISTINE S Ot R59.0 LOCALIZED ENLARGED LYMPH NODES 07/13/2019 YAHIRNDER DO, KRISTINE S Ot G93.2 BENIGN INTRACRANIAL HYPERTENSION 07/13/2019 YAHIRNDER DO, KRISTINE S Ot R10.31 RIGHT LOWER QUADRANT PAIN 07/13/2019 YAHIRNDER DO, KRISTINE S Ot R05 COUGH 07/13/2019 ORENDER DO, KRISTINE S Ot R59.0 LOCALIZED ENLARGED LYMPH NODES 07/13/2019 VICKYTAMMY ARANDA R BOTANY PROFESSOR Ot M25.511 PAIN IN RIGHT SHOULDER 07/13/2019 VICKYTAMMY ARANDA R BOTANY PROFESSOR Ot Z12.31 ENCNTR SCREEN MAMMOGRAM FOR MALIGNANT NE 07/13/2019 LONNY PAYNE, JAG Garcia Ot I26. 99 OTHER PULMONARY EMBOLISM WITHOUT ACUTE C 07/13/2019 JAG MUKHERJEE MD Ot I34. 0 NONRHEUMATIC MITRAL (VALVE) INSUFFICIENC 07/13/2019 JAG MUKHERJEE MD Ot R00. 2 PALPITATIONS 07/13/2019 JAG MUKHERJEE MD Ot R06. 02 SHORTNESS OF BREATH 07/13/2019 AJG MUKHERJEE MD Ot R42 DIZZINESS AND GIDDINESS 07/13/2019 KRISTINE AMIN DO Ot R22.1 LOCALIZED SWELLING, MASS AND LUMP, NECK 07/13/2019 KRISTINE AMIN DO Ot Z80.8 FAMILY HISTORY OF MALIGNANT NEOPLASM OF 07/13/2019 JAG MUKHERJEE MD Ot R00. 0 TACHYCARDIA, UNSPECIFIED 07/13/2019 JAG MUKHERJEE MD, Ot R00. 2 PALPITATIONS 07/13/2019 JAG MUKHERJEE MD Ot R94. 31 ABNORMAL ELECTROCARDIOGRAM [ECG] [EKG] 07/13/2019 TIFFANIE FOFANA BOTANY PROFESSOR Ot B99 .8 OTHER INFECTIOUS DISEASE 07/13/2019 TIFFANIE FOFANA BOTANY PROFESSOR Ot C80 .1 MALIGNANT (PRIMARY) NEOPLASM, UNSPECIFIE 07/13/2019 TIFFANIE FOFANA BOTANY PROFESSOR Ot D68.61 ANTIPHOSPHOLIPID SYNDROME 07/13/2019 TIFFANIE FOFANA BOTANY PROFESSOR Ot F32 .9 MAJOR DEPRESSIVE DISORDER, SINGLE EPISOD 07/13/2019 TIFFANIE FOFANA BOTANY PROFESSOR Ot J01.90 ACUTE SINUSITIS, UNSPECIFIED 07/13/2019 TIFFANIE FOFANA BOTANY PROFESSOR Ot M00.272 OTHER STREPTOCOCCAL ARTHRITIS, LEFT ANKL 07/13/2019 TIFFANIE FOFANA BOTANY PROFESSOR Ot M35 .9 SYSTEMIC INVOLVEMENT OF CONNECTIVE TISSU 07/13/2019 TIFFANIE FOFANA BOTANY PROFESSOR Ot Z79.01 MCC (CURRENT) USE OF ANTICOAGULANT 07/13/2019 TIFFANIE FOFANA BOTANY PROFESSOR Ot Z86.711 PERSONAL HISTORY OF PULMONARY EMBOLISM 07/13/2019 Ot Z12.31 ENC NTR SCREEN MAMMOGRAM FOR MALIGNANT NE 07/13/2019 KRISTINE AMIN DO Ot 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, UNSPECIFIED 07/13/2019 KRISTINE AMIN DO Ot M54.2 CERVICALGIA 07/13/2019 KRISTINE AMIN DO Ot R59.0 LOCALIZED ENLARGED LYMPH NODES 07/13/2019 YAHIRNDER DO, KRISTINE S Ot G93.2 BENIGN INTRACRANIAL HYPERTENSION 07/13/2019 YAHIRNDER DO, KRISTINE S Ot R10.31 RIGHT LOWER QUADRANT PAIN 07/13/2019 YAHIRNDER DO, KRISTINE S Ot R05 COUGH 07/13/2019 YAHIRNDER DO, KRISTINE S Ot R59.0 LOCALIZED ENLARGED LYMPH NODES 07/13/2019 RAISA PERRYYSON R BOTANY PROFESSOR Ot M25.511 PAIN IN RIGHT SHOULDER 07/13/2019 TAMMY PERRY R BOTANY PROFESSOR Ot Z12.31 ENCNTR SCREEN MAMMOGRAM FOR MALIGNANT NE 07/13/2019 JAG MUKHERJEE MD Ot I26. 99 OTHER PULMONARY EMBOLISM WITHOUT ACUTE C 07/13/2019 JAG MUKHERJEE MD Ot I34. 0 NONRHEUMATIC MITRAL (VALVE) INSUFFICIENC 07/13/2019 JAG MUKHERJEE MD Ot R00. 2 PALPITATIONS 07/13/2019 JAG MUKHERJEE MD Ot R06. 02 SHORTNESS OF BREATH 07/13/2019 JAG MUKHERJEE MD Ot R42 DIZZINESS AND GIDDINESS 07/13/2019 [facility] , KRISTINE S Ot R22.1 LOCALIZED SWELLING, MASS AND LUMP, NECK 07/[facility]2019 [facility] Ot Z80.8 FAMILY HISTORY OF MALIGNANT NEOPLASM OF 07/13/2019 JAG MUKHERJEE MD Ot R00. 0 TACHYCARDIA, UNSPECIFIED 07/13/2019 JAG MUKHERJEE MD Ot R00. 2 PALPITATIONS 07/13/2019 JAG MUKHERJEE MD Ot R94. 31 ABNORMAL ELECTROCARDIOGRAM [ECG] [EKG] 07/13/2019 TIFFANIE FOFANA BOTANY PROFESSOR Ot B99 .8 OTHER INFECTIOUS DISEASE 07/13/2019 TIFFANIE FOFANA APRN Ot C80 .1 MALIGNANT (PRIMARY) NEOPLASM, UNSPECIFIE 07/13/2019 TIFFANIE FOFANA APRN Ot D68.61 ANTIPHOSPHOLIPID SYNDROME 07/13/2019 TIFFANIE FOFANA APRN Ot F32 .9 MAJOR DEPRESSIVE DISORDER, SINGLE EPISOD 07/13/2019 TIFFANIE FOFANA BOTANY PROFESSOR Ot J01.90 ACUTE SINUSITIS, UNSPECIFIED 07/13/2019 TIFFANIE FOFANA BOTANY PROFESSOR Ot M00.272 OTHER STREPTOCOCCAL ARTHRITIS, LEFT ANKL 07/13/2019 TIFFANIE FOFANA BOTANY PROFESSOR Ot M35 .9 SYSTEMIC INVOLVEMENT OF CONNECTIVE TISSU 07/13/2019 TIFFANIE FOFANA BOTANY PROFESSOR Ot 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 07/13/2019 TIFFANIE FOFANA BOTANY PROFESSOR Ot Z86.711 PERSONAL HISTORY OF PULMONARY EMBOLISM 07/13/2019 Ot Z12.31 ENC NTR SCREEN MAMMOGRAM FOR MALIGNANT NE 07/14/2019 ORENDER DO, KRISTINE S Ot 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, UNSPECIFIED 07/14/2019 ORENDER DO, KRISTINE S Ot M54.2 CERVICALGIA 07/14/2019 ORENDER DO, KRISTINE S Ot R59.0 LOCALIZED ENLARGED LYMPH NODES [facility] Ot G93.2 BENIGN INTRACRANIAL HYPERTENSION 07/14/2019 [facility] Ot R10.31 RIGHT LOWER QUADRANT PAIN 07/14/[facility] S Ot R05 COUGH [facility] S Ot R59.0 LOCALIZED ENLARGED LYMPH NODES 07/14/2019 TAMMY PERRY BOTANY PROFESSOR Ot M25.511 PAIN IN RIGHT SHOULDER 07/14/2019 TAMMY PERRY BOTANY PROFESSOR Ot Z12.31 ENCNTR SCREEN MAMMOGRAM FOR MALIGNANT NE 07/14/2019 JAG MUKHERJEE MD Ot I26. 99 OTHER PULMONARY EMBOLISM WITHOUT ACUTE C 07/14/2019 JAG MUKHERJEE MD Ot I34. 0 NONRHEUMATIC MITRAL (VALVE) INSUFFICIENC 07/14/2019 JAG MUKHERJEE MD Ot R00. 2 PALPITATIONS 07/14/2019 JAG MUKHERJEE MD Ot R06. 02 SHORTNESS OF BREATH 07/14/2019 JAG MUKHERJEE MD Ot R42 DIZZINESS AND GIDDINESS 07/14/2019 [facility] S Ot R22.1 LOCALIZED SWELLING, MASS AND LUMP, NECK 07/14/2019 [facility] S Ot Z80.8 FAMILY HISTORY OF MALIGNANT NEOPLASM OF 07/14/2019 JAG MUKHERJEE MD Ot R00. 0 TACHYCARDIA, UNSPECIFIED 07/14/2019 LONNY PAYNE, JGA Garcia Ot R00. 2 PALPITATIONS 07/14/2019 LONNY PAYNE, JAG Garcia Ot R94. 31 ABNORMAL ELECTROCARDIOGRAM [ECG] [EKG] 07/14/2019 CT TIFFANIE L BOTANY PROFESSOR Ot B99 .8 OTHER INFECTIOUS DISEASE 07/14/2019 CT TIFFANIE L BOTANY PROFESSOR Ot C80 .1 MALIGNANT (PRIMARY) NEOPLASM, UNSPECIFIE 07/14/2019 CT TIFFANIE L BOTANY PROFESSOR Ot D68.61 ANTIPHOSPHOLIPID SYNDROME 07/14/2019 FOFANA, TIFFANIE L BOTANY PROFESSOR Ot F32 .9 MAJOR DEPRESSIVE DISORDER, SINGLE EPISOD 07/14/2019 FOFANA, TIFFANIE Deloris BOTANY PROFESSOR Ot J01.90 ACUTE SINUSITIS, UNSPECIFIED 07/14/2019 FOFANA, TIFFANIE L BOTANY PROFESSOR Ot M00.272 OTHER STREPTOCOCCAL ARTHRITIS, LEFT ANKL 07/14/2019 FOFANA, TIFFANIE L BOTANY PROFESSOR Ot M35 .9 SYSTEMIC INVOLVEMENT OF CONNECTIVE TISSU 07/14/2019 CT TIFFANIE Deloris BOTANY PROFESSOR Ot 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 07/14/2019 CT TIFFANIE L BOTANY PROFESSOR Ot Z86.711 PERSONAL HISTORY OF PULMONARY EMBOLISM 07/14/2019 Ot Z12.31 ENC NTR SCREEN MAMMOGRAM FOR MALIGNANT NE 07/16/2019 RAPHAEL PAYNE, ALEXANDREA Genao Ot F17.210 NICOTINE DEPENDENCE, CIGARETTES, UNCOMPL 07/16/2019 ALEXANDREA LIM MD Ot F41.9 ANXIETY DISORDER, UNSPECIFIED 07/16/2019 ALEXANDREA LIM MD Ot G43.909 MIGRAINE, UNSP, NOT INTRACTABLE, WITHOUT 07/16/2019 ALEXANDREA LIM MD Ot I10 ESSENTIAL (PRIMARY) HYPERTENSION 07/16/2019 ALEXANDREA LIM MD Ot K58.9 IRRITABLE BOWEL SYNDROME WITHOUT DIARRHE 07/16/2019 ALEXANDREA LIM MD Ot M79.7 FIBROMYALGIA 07/16/2019 ALEXANDREA LIM MD Ot R06.00 DYSPNEA, UNSPECIFIED 07/16/2019 ALEXANDREA LIM MD Ot R22.0 LOCALIZED SWELLING, MASS AND LUMP, HEAD 07/16/2019 ALEXANDREA LIM MD, Ot 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49 ACQUIRED ABSENCE OF OTHER SPECIFIED PART 07/16/2019 ALEXANDREA LIM MD, Ot Z90.710 ACQUIRED ABSENCE OF BOTH CERVIX AND UTER 07/16/2019 MITCHELL IBARRA BOTANY PROFESSOR Ot R06.09 OTHER FORMS OF DYSPNEA 07/21/2019 MITCHELL IBARRA BOTANY PROFESSOR Ot R06.09 OTHER FORMS OF DYSPNEA 07/23/2019 LANA COLLIER Ot 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 1 TOBACCO USE DISORDER 07/23/2019 JAG MUKHERJEE MD Ot 415. 19 OTH PULMON EMBOLISM/INFARCT 07/23/2019 JAG MUKHERJEE MD Ot 785. 1 PALPITATIONS 07/23/2019 JAG MUKHERJEE MD Ot 786. 05 SHORTNESS OF BREATH 07/23/2019 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 Ot 041.00 07/23/2019 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 Ot V58.61 07/23/2019 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 Ot E86.0 DEHYDRATION 07/23/2019 LAURA ANGELES ANP Ot I26.99 OTHER PULMONARY EMBOLISM WITHOUT ACUTE C 07/23/2019 LAUAR ANGELES ANP Ot I82.409 ACUTE EMBOLISM AND THOMBOS UNSP DEEP VN 07/23/2019 LAURA ANGELES ANP Ot M79.1 MYALGIA 07/23/2019 LAURA ANGELES ANP Ot R50.9 FEVER, UNSPECIFIED 07/23/2019 LAURA ANGELES ANP Ot R53.82 CHRONIC FATIGUE, UNSPECIFIED 07/29/2019 JAG MUKHERJEE MD Ot R00. 0 TACHYCARDIA, UNSPECIFIED 07/29/2019 JAG MUKHERJEE MD Ot R00. 2 PALPITATIONS 07/29/2019 LONNY PAYNE, JAG Garcia Ot R94. 31 ABNORMAL ELECTROCARDIOGRAM [ECG] [EKG] 07/30/2019 JAG MUKHERJEE MD Ot R00. 0 TACHYCARDIA, UNSPECIFIED 07/30/2019 JAG MUKHERJEE MD Ot R00. 2 PALPITATIONS 07/30/2019 JAG MUKHERJEE MD Ot R94. 31 ABNORMAL ELECTROCARDIOGRAM [ECG] [EKG] 08/03/2019 MITCHELL IBARRA APRN Ot R06.09 OTHER FORMS OF DYSPNEA 09/09/2019 MITCHELL IBARRA APRN Ot I95.1 ORTHOSTATIC HYPOTENSION 11/03/2019 MITCHELL IBARRA APRN Ot I95.1 ORTHOSTATIC HYPOTENSION 12/30/2019 MITCHELL IBARRA APRN Ot M25.572 PAIN IN LEFT ANKLE AND JOINTS OF LEFT FO 01/03/2020 MITCHELL IBARRA APRN Ot M79.89 OTHER SPECIFIED SOFT TISSUE DISORDERS Procedures Code Description [place] [address] STRE P A (IN-HOUSE) 05/20/2012 11207 URIN E TEST (IN- HOUSE) 06/05/2012 62095 XRAY CERVICAL SPINE MIN 4 VIEWS 06/05/2012 51972 XRAY THORACIC SPINE 3 VIEWS 06/05/2012 Obstetric Ryan Tran 06/05/2012 79589 INR (IN HOUSE) 08/03/2012 83658 INR (IN HOUSE) 08/10/2012 10531 VENO US DOPPLER UNILATERAL/LIMITED 08/11/2012 67452 UA L WILLY DIP 08/18/2012 27898 INR (IN HOUSE) 08/31/2012 44979 CULT URE URINE 09/06/2012 40320 UA W / CULTURE IF INDICATED 09/08/2012 38844 INR (IN HOUSE) 09/14/2012 48437 INR (IN HOUSE) 09/21/2012 07625 INR (IN HOUSE) 09/28/2012 Urology Philippe Goldman 09/29/2012 06200 INR (IN HOUSE) 10/06/2012 75246 THER APUTIC INJ SQ/IM 10/17/2012 J1040 DEPO MEDROL 80 MG INJ 10/17/2012 37658 INR (IN HOUSE) 10/19/2012 61819 INR (IN HOUSE) 10/26/2012 82733 INR (IN HOUSE) 11/02/2012 98247 INR (IN HOUSE) 11/17/2012 36089 INR (IN HOUSE) 12/22/2012 40910 ROUT INE VENIPUNCTURE 01/26/2013 99640 PT/INR 01/26/2013 19437 INR (IN HOUSE) 02/08/2013 75268 INR (IN HOUSE) 02/19/2013 27285 INR (IN HOUSE) 05/21/2013 05490 INR (IN HOUSE) 06/24/2013 03093 INR (IN HOUSE) 07/13/2013 00649 INR (IN HOUSE) 07/22/2013 10512 INR (IN HOUSE) 08/05/2013 Medical O Lana Collier 09/16/2013 76498 INR (IN HOUSE) 10/13/2013 25384 INR (IN HOUSE) 11/03/2013 19739 UA W / CULTURE IF INDICATED 11/25/2013 35682 INR (IN HOUSE) 12/09/2013 88091 INR (IN HOUSE) 12/23/2013 92829 INR (IN HOUSE) 12/30/2013 ALLERGY, LEWIS CR 01/03/2014 18919 INR (IN HOUSE) 01/12/2014 02432 ROUT INE VENIPUNCTURE 02/08/2014 29235 FSH 02/08/2014 49412 LH 02/08/2014 11457 INR (IN HOUSE) 02/08/2014 86942 INR (IN HOUSE) 02/22/2014 50987 UA W / CULTURE IF INDICATED 02/22/2014 48887 CULT URE URINE 02/22/2014 77795 INR (IN HOUSE) 02/25/2014 28985 INR (IN HOUSE) 03/28/2014 Obstetric Junito Cortez 04/08/2014 67277 INR (IN HOUSE) 04/08/2014 18902 INR (IN HOUSE) 04/22/2014 94473 INR (IN HOUSE) 05/10/2014 52243 INR (IN HOUSE) 05/20/2014 03531 INR (IN HOUSE) 05/27/2014 58042 ROUT INE VENIPUNCTURE 06/03/2014 OTOLARYNG LEWIS CUEVA 06/03/2014 04721 INR (IN HOUSE) 06/03/2014 04470 MONO TEST (IN-HOUSE) 06/03/2014 47352 STRE P A (IN-HOUSE) 06/03/[address] A NGIO, CHEST 06/03/2014 17469 OXIMETRY 06/03/2014 2147100 GF R CALC (RESULT ONLY) 06/03/2014 90365 CMP 06/03/2014 28673 VIT B 12 06/03/2014 85502 INR (IN HOUSE) 06/17/2014 29038 INR (IN HOUSE) 06/22/2014 08614 INR (IN HOUSE) 06/30/2014 2000F BLOO D PRESSURE CHECK 06/30/2014 81528 INR (IN HOUSE) 07/07/2014 88654 INR (IN HOUSE) 07/11/2014 00206 XRAY ABDOMEN 2 VIEWS 07/11/2014 46869 INR (IN HOUSE) 07/22/2014 59811 ROUT INE VENIPUNCTURE 08/04/2014 27593 PT/INR 08/04/2014 28533 INR (IN HOUSE) 08/08/2014 55261 INR (IN HOUSE) 09/14/2014 47339 UA W / CULTURE IF INDICATED 10/07/2014 Results Test Result Range Complete blood count (CBC) with automate d white blood cell (WBC) differential - 05/12/16 20:19 Blood leukocytes automated count (number/volume) 7.7 10*3/uL 4.3-11.0 Blood erythrocytes automated count (number/volume) 4.75 10*6/uL 4.35-5.85 Venous blood hemoglobin measurement (mass/volume) 15.7 g/dL 11.5-16.0 Blood hematocrit (volume fraction) 44 % 35-52 Automated erythrocyte mean corpuscular volume 92 [ foz_us] 80-99 Automated erythrocyte mean corpuscular h emoglobin (mass per erythrocyte) 33 pg 25-34 Automated erythrocyte mean corpuscular h emoglobin concentration measurement (mass/volume) 36 g/dL 32-36 Automated erythrocyte distribution width ratio 12. 7 % 10.0- 14.5 Automated blood platelet count (count/volume) 222 10*3/uL [...] 10*3 1.0-4.0 Blood monocytes automated count (number/volume) 0. 6 10*3 0.0-1.0 Automated eosinophil count 0.1 10*3/uL 0 .0-0.3 Automated blood basophil count (count/volume) 0.0 10*3/uL 0.0-0.1 Comprehensive metabolic panel - 05/12/16 20:19 Serum or plasma sodium measurement (moles/volume) 137 mmol/L 135-145 Serum or plasma potassium measurement (moles/volume) 4.6 mmol/L 3.6-5.0 Serum or plasma chloride measurement (moles/volume) 106 mmol/L 98-107 Carbon dioxide 19 mmol/L 21-32 Serum or plasma anion gap determination (moles/volume) 12 mmol/L 5-14 Serum or plasma urea nitrogen measurement (mass/volume ) 8 mg/dL 7-18 Serum or plasma creatinine measurement (mass/volume) 0.72 mg/dL 0.60-1.30 Serum or plasma urea nitrogen/creatinine mass ratio 11 NRG Serum or plasma creatinine measurement w ith calculation of estimated glomerular filtration rate > NRG Serum or plasma glucose measurement (mass/volume) 81 mg/dL 70-105 Serum or plasma calcium measurement (mass/volume) 9.1 mg/dL 8.5-10.1 Serum or plasma total bilirubin measurement (mass/volu me) 0.4 mg/dL 0.1-1.0 Serum or plasma alkaline phosphatase jose surement (enzymatic activity/volume) 77 U/L 40-136 Serum or plasma aspartate aminotransfera se measurement (enzymatic activity/volume) 40 U/L 5-34 Serum or plasma alanine aminotransferase measurement (enzymatic activity/volume) 61 U/L 0-55 Serum or plasma protein measurement (mass/volume) 7.0 g/dL 6.4-8.2 Serum or plasma albumin measurement (mass/volume) 4.2 g/dL 3.2-4.5 Lipase - 05/12/16 20:19 Lipase < U/L 8-78 Complete urinalysis with reflex to cultu re - 05/12/16 20:40 Urine color determination YELLOW NRG Urine clarity determination SLIGHTLY CLOUDY NRG Urine pH measurement by test strip 6.5 5-9 Specific gravity of urine by test strip 1.005 1.016-1.022 Urine protein assay by test strip, semi-quantitative NEGATIVE NEGATIVE Urine glucose detection by automated test strip NE GATIVE NEGATIVE Erythrocytes detection in urine sediment by light micr oscopy NEGATIVE NEGATIVE Urine ketones detection by automated test strip NE GATIVE NEGATIVE Urine nitrite detection by test strip NEGATIVE NEGATIVE Urine total bilirubin detection by test strip NEGA TIVE NEGATIVE Urine urobilinogen measurement by automated test strip (mass/volume) NORMAL NORMAL Urine leukocyte esterase detection by dipstick NEG ATIVE NEGATIVE Automated urine sediment erythrocyte cou nt by microscopy (number/high power field) RARE NRG Automated urine sediment leukocyte count by microscopy (number/high power field) [HPF] NRG Bacteria detection in urine sediment by light microsco py NEGATIVE NRG Squamous epithelial cells detection in u rine sediment by light microscopy >50 NRG Crystals detection in urine sediment by light microsco py NONE NRG Casts detection in urine sediment by light microscopy NONE NRG Mucus detection in urine sediment by light microscopy NEGATIVE NRG Complete urinalysis with reflex to culture NO NRG Renal epithelial cells detection in urin e sediment by light microscopy NONE NRG Complete blood count (CBC) with automate d white blood cell (WBC) differential - 07/07/16 20:22 Blood leukocytes automated count (number/volume) 8.4 10*3/uL 4.3-11.0 Blood erythrocytes automated count (number/volume) 4.56 10*6/uL 4.35-5.85 Venous blood hemoglobin measurement (mass/volume) 14.9 g/dL 11.5-16.0 Blood hematocrit (volume fraction) 43 % 35-52 Automated erythrocyte mean corpuscular volume 93 [ foz_us] 80-99 Automated erythrocyte mean corpuscular h emoglobin (mass per erythrocyte) 33 pg 25-34 Automated erythrocyte mean corpuscular h emoglobin concentration measurement (mass/volume) 35 g/dL 32-36 Automated erythrocyte distribution width ratio 12. 4 % 10.0- 14.5 Automated blood platelet count (count/volume) 292 10*3/uL [...] 10*3 1.0-4.0 Blood monocytes automated count (number/volume) 0. 5 10*3 0.0-1.0 Automated eosinophil count 0.2 10*3/uL 0 .0-0.3 Automated blood basophil count (count/volume) 0.0 10*3/uL 0.0-0.1 PT panel in platelet poor plasma by coag ulation assay - 07/07/16 20:22 Prothrombin time (PT) in platelet poor plasma by coagu lation assay 18.3 s 12.2-14.7 INR in platelet poor plasma or blood by coagulation as say 1.6 0.8-1.4 Activated partial thromboplastin time (a PTT) in platelet poor plasma bycoagulation assay - 07/07/16 20:22 Activated partial thromboplastin time (a PTT) in platelet poor plasma bycoagulation assay 32 s 24-35 Fibrin D-dimer FEU measurement in platel et poor plasma (mass/volume) - 07/07/16 20:22 Fibrin D-dimer FEU measurement in platelet poor plasma (mass/volume) < ug/mL 0.00-0.49 Complete urinalysis with reflex to cultu re - 02/10/17 14:05 Urine color determination YELLOW NRG Urine clarity determination CLEAR NR G Urine pH measurement by test strip 7 5-9 Specific gravity of urine by test strip 1.010 1.016-1.022 Urine protein assay by test strip, semi-quantitative NEGATIVE NEGATIVE Urine glucose detection by automated test strip NE GATIVE NEGATIVE Erythrocytes detection in urine sediment by light micr oscopy NEGATIVE NEGATIVE Urine ketones detection by automated test strip NE GATIVE NEGATIVE Urine nitrite detection by test strip NEGATIVE NEGATIVE Urine total bilirubin detection by test strip NEGA TIVE NEGATIVE Urine urobilinogen measurement by automated test strip (mass/volume) NORMAL NORMAL Urine leukocyte esterase detection by dipstick NEG ATIVE NEGATIVE Automated urine sediment erythrocyte cou nt by microscopy (number/high power field) NONE NRG Automated urine sediment leukocyte count by microscopy (number/high power field) NONE NRG Bacteria detection in urine sediment by light microsco py NEGATIVE NRG Squamous epithelial cells detection in u rine sediment by light microscopy 2-5 NRG Crystals detection in urine sediment by light microsco py NONE NRG Casts detection in urine sediment by light microscopy NONE NRG Mucus detection in urine sediment by light microscopy NEGATIVE NRG Complete urinalysis with reflex to culture NO NRG Complete blood count (CBC) with automate d white blood cell (WBC) differential - 02/10/17 14:16 Blood leukocytes automated count (number/volume) 9.3 10*3/uL 4.3-11.0 Blood erythrocytes automated count (number/volume) 4.28 10*6/uL 4.35-5.85 Venous blood hemoglobin measurement (mass/volume) 14.1 g/dL 11.5-16.0 Blood hematocrit (volume fraction) 41 % 35-52 Automated erythrocyte mean corpuscular volume 95 [ foz_us] 80-99 Automated erythrocyte mean corpuscular h emoglobin (mass per erythrocyte) 33 pg 25-34 Automated erythrocyte mean corpuscular h emoglobin concentration measurement (mass/volume) 35 g/dL 32-36 Automated erythrocyte distribution width ratio 12. 2 % 10.0- 14.5 Automated blood platelet count (count/volume) 292 10*3/uL [...] 10*3 1.0-4.0 Blood monocytes automated count (number/volume) 0. 5 10*3 0.0-1.0 Automated eosinophil count 0.2 10*3/uL 0 .0-0.3 Automated blood basophil count (count/volume) 0.0 10*3/uL 0.0-0.1 Comprehensive metabolic panel - 02/10/17 14:16 Serum or plasma sodium measurement (moles/volume) 139 mmol/L 135-145 Serum or plasma potassium measurement (moles/volume) 3.9 mmol/L 3.6-5.0 Serum or plasma chloride measurement (moles/volume) 106 mmol/L 98-107 Carbon dioxide 25 mmol/L 21-32 Serum or plasma anion gap determination (moles/volume) 8 mmol/L 5-14 Serum or plasma urea nitrogen measurement (mass/volume ) 11 mg/dL 7-18 Serum or plasma creatinine measurement (mass/volume) 0.71 mg/dL 0.60-1.30 Serum or plasma urea nitrogen/creatinine mass ratio 15 NRG Serum or plasma creatinine measurement w ith calculation of estimated glomerular filtration rate > NRG Serum or plasma glucose measurement (mass/volume) 91 mg/dL 70-105 Serum or plasma calcium measurement (mass/volume) 8.6 mg/dL 8.5-10.1 Serum or plasma total bilirubin measurement (mass/volu me) 0.2 mg/dL 0.1-1.0 Serum or plasma alkaline phosphatase jose surement (enzymatic activity/volume) 47 U/L 40-136 Serum or plasma aspartate aminotransfera se measurement (enzymatic activity/volume) 25 U/L 5-34 Serum or plasma alanine aminotransferase measurement (enzymatic activity/volume) 23 U/L 0-55 Serum or plasma protein measurement (mass/volume) 6.4 g/dL 6.4-8.2 Serum or plasma albumin measurement (mass/volume) 4.0 g/dL 3.2-4.5 PT panel in platelet poor plasma by coag ulation assay - 02/10/17 15:00 Prothrombin time (PT) in platelet poor plasma by coagu lation assay 18.3 s 12.2-14.7 INR in platelet poor plasma or blood by coagulation as say 1.5 0.8-1.4 Fibrin D-dimer FEU measurement in platel et poor plasma (mass/volume) - 02/10/17 15:00 Fibrin D-dimer FEU measurement in platelet poor plasma (mass/volume) < ug/mL 0.00-0.49 Complete blood count (CBC) with automate d white blood cell (WBC) differential - 03/14/19 11:22 Blood leukocytes automated count (number/volume) 10.1 10*3/uL 4.3-11.0 Blood erythrocytes automated count (number/volume) 4.43 10*6/uL 4.35-5.85 Venous blood hemoglobin measurement (mass/volume) 14.3 g/dL 11.5-16.0 Blood hematocrit (volume fraction) 42 % 35-52 Automated erythrocyte mean corpuscular volume 95 [ foz_us] 80-99 Automated erythrocyte mean corpuscular h emoglobin (mass per erythrocyte) 32 pg 25-34 Automated erythrocyte mean corpuscular h emoglobin concentration measurement (mass/volume) 34 g/dL 32-36 Automated erythrocyte distribution width ratio 12. 7 % 10.0- 14.5 Automated blood platelet count (count/volume) 320 10*3/uL 130-400 Automated blood platelet mean volume measurement 8.7 [foz_us] 7.4-10.4 Automated blood neutrophils/100 leukocytes 60 % 42-75 Automated blood lymphocytes/100 leukocytes 31 % 12-44 Blood monocytes/100 leukocytes 8 % 0-12 Automated blood eosinophils/100 leukocytes 1 % 0-10 Automated blood basophils/100 leukocytes 0 % 0-10 Blood neutrophils automated count (number/volume) 6.1 10*3 1.8-7.8 Blood lymphocytes automated count (number/volume) 3.1 10*3 1.0-4.0 Blood monocytes automated count (number/volume) 0. 8 10*3 0.0-1.0 Automated eosinophil count 0.1 10*3/uL 0 .0-0.3 Automated blood basophil count (count/volume) 0.0 10*3/uL 0.0-0.1 PT panel in platelet poor plasma by coag ulation assay - 03/14/19 11:22 Prothrombin time (PT) in platelet poor plasma by coagu lation assay 27.1 s 12.2-14.7 INR in platelet poor plasma or blood by coagulation as say 2.4 0.8-1.4 Activated partial thromboplastin time (a PTT) in platelet poor plasma bycoagulation assay - 03/14/19 11:22 Activated partial thromboplastin time (a PTT) in platelet poor plasma bycoagulation assay 38 s 24-35 Comprehensive metabolic panel - 03/14/19 11:22 Serum or plasma sodium measurement (moles/volume) 137 mmol/L 135-145 Serum or plasma potassium measurement (moles/volume) 3.6 mmol/L 3.6-5.0 Serum or plasma chloride measurement (moles/volume) 105 mmol/L 98-107 Carbon dioxide 24 mmol/L 21-32 Serum or plasma anion gap determination (moles/volume) 8 mmol/L 5-14 Serum or plasma urea nitrogen measurement (mass/volume ) 10 mg/dL 7-18 Serum or plasma creatinine measurement (mass/volume) 0.69 mg/dL 0.60-1.30 Serum or plasma urea nitrogen/creatinine mass ratio 14 NRG Serum or plasma creatinine measurement w ith calculation of estimated glomerular filtration rate > NRG Serum or plasma glucose measurement (mass/volume) 96 mg/dL 70-105 Serum or plasma calcium measurement (mass/volume) 8.9 mg/dL 8.5-10.1 Serum or plasma total bilirubin measurement (mass/volu me) 0.3 mg/dL 0.1-1.0 Serum or plasma alkaline phosphatase jose surement (enzymatic activity/volume) 61 U/L 40-136 Serum or plasma aspartate aminotransfera se measurement (enzymatic activity/volume) 19 U/L 5-34 Serum or plasma alanine aminotransferase measurement (enzymatic activity/volume) 20 U/L 0-55 Serum or plasma protein measurement (mass/volume) 6.9 g/dL 6.4-8.2 Serum or plasma albumin measurement (mass/volume) 4.2 g/dL 3.2-4.5 CALCIUM CORRECTED 8.7 mg/dL 8.5-10.1 Magnesium - 03/14/19 11:22 Magnesium 1.9 mg/dL 1.6-2.4 Serum or plasma troponin i.cardiac measu rement (mass/volume) - 03/14/19 11:22 Serum or plasma troponin i.cardiac measurement (mass/v olume) < ng/mL <0.028 Myoglobin, serum - 03/14/19 11:22 Myoglobin, serum 67.4 ng/mL 10.0-92.0 Serum or plasma thyrotropin measurement by detection limit <=0.05 miu/l (units/volume) - 03/14/19 11:22 Serum or plasma thyrotropin measurement by detection limit <=0.05 miu/l (units/volume) 0.90 u[iU]/mL 0.35-4.94 Complete urinalysis with reflex to cultu re - 03/14/19 11:30 Urine color determination YELLOW NRG Urine clarity determination SLIGHTLY CLOUDY NRG Urine pH measurement by test strip 8 5-9 Specific gravity of urine by test strip 1.010 1.016-1.022 Urine protein assay by test strip, semi-quantitative NEGATIVE NEGATIVE Urine glucose detection by automated test strip NE GATIVE NEGATIVE Erythrocytes detection in urine sediment by light micr oscopy NEGATIVE NEGATIVE Urine ketones detection by automated test strip NE GATIVE NEGATIVE Urine nitrite detection by test strip NEGATIVE NEGATIVE Urine total bilirubin detection by test strip NEGA TIVE NEGATIVE Urine urobilinogen measurement by automated test strip (mass/volume) NORMAL NORMAL Urine leukocyte esterase detection by dipstick NEG ATIVE NEGATIVE Automated urine sediment erythrocyte cou nt by microscopy (number/high power field) RARE NRG Automated urine sediment leukocyte count by microscopy (number/high power field) RARE NRG Bacteria detection in urine sediment by light microsco py NEGATIVE NRG Squamous epithelial cells detection in u rine sediment by light microscopy 5-10 NRG Crystals detection in urine sediment by light microsco py NONE NRG Casts detection in urine sediment by light microscopy NONE NRG Mucus detection in urine sediment by light microscopy NEGATIVE NRG Complete urinalysis with reflex to culture NO NRG [id number] - 05/26/19 15:39 Screening antinuclear antibody (MAGALIE) assay by enzyme i mmunoassay <1:80 <1:80 Single stranded deoxyribonucleic acid (s sDNA) antibody assay - 05/26/19 15:39 Single stranded deoxyribonucleic acid (ssDNA) antibody assay TNP:Lab Request <68 Serum cyclic citrullinated peptide antib kimi assay (units/volume) - 05/26/19 15:39 Serum cyclic citrullinated peptide antibody assay (uni ts/volume) < % 0.0-19.9 RA FACTOR (RHEUMATOID FACTOR) - 05/26/19 15:39 Serum or plasma rheumatoid factor measurement (units/v olume) < [iU]/mL 0-29 Interpretation of rheumatoid factor assay Negative Negative Complete urinalysis with reflex to cultu re - 05/26/19 15:59 Urine color determination YELLOW NRG Urine clarity determination CLEAR NR G Urine pH measurement by test strip 7.5 5-9 Specific gravity of urine by test strip 1.015 1.016-1.022 Urine protein assay by test strip, semi-quantitative NEGATIVE NEGATIVE Urine glucose detection by automated test strip NE GATIVE NEGATIVE Erythrocytes detection in urine sediment by light micr oscopy NEGATIVE NEGATIVE Urine ketones detection by automated test strip NE GATIVE NEGATIVE Urine nitrite detection by test strip NEGATIVE NEGATIVE Urine total bilirubin detection by test strip NEGA TIVE NEGATIVE Urine urobilinogen measurement by automated test strip (mass/volume) 0.2 mg/dL < = 1.0 Urine leukocyte esterase detection by dipstick NEG ATIVE NEGATIVE Automated urine sediment erythrocyte cou nt by microscopy (number/high power field) [HPF] NRG Automated urine sediment leukocyte count by microscopy (number/high power field) [HPF] NRG Bacteria detection in urine sediment by light microsco py NEGATIVE NRG Squamous epithelial cells detection in u rine sediment by light microscopy 5-10 NRG Crystals detection in urine sediment by light microsco py NONE NRG Casts detection in urine sediment by light microscopy NONE NRG Mucus detection in urine sediment by light microscopy NEGATIVE NRG Complete urinalysis with reflex to culture NO NRG Complete blood count (CBC) with automate d white blood cell (WBC) differential - 07/06/19 12:55 Blood leukocytes automated count (number/volume) 8.9 10*3/uL 4.3-11.0 Blood erythrocytes automated count (number/volume) 4.74 10*6/uL 4.35-5.85 Venous blood hemoglobin measurement (mass/volume) 15.5 g/dL 11.5-16.0 Blood hematocrit (volume fraction) 45 % 35-52 Automated erythrocyte mean corpuscular volume 95 [ foz_us] 80-99 Automated erythrocyte mean corpuscular h emoglobin (mass per erythrocyte) 33 pg 25-34 Automated erythrocyte mean corpuscular h emoglobin concentration measurement (mass/volume) 34 g/dL 32-36 Automated erythrocyte distribution width ratio 12. 5 % 10.0- 14.5 Automated blood platelet count (count/volume) 306 10*3/uL 130-400 Automated blood platelet mean volume measurement 9.3 [foz_us] 7.4-10.4 Automated blood neutrophils/100 leukocytes 58 % 42-75 Automated blood lymphocytes/100 leukocytes 33 % 12-44 Blood monocytes/100 leukocytes 7 % 0-12 Automated blood eosinophils/100 leukocytes 1 % 0-10 Automated blood basophils/100 leukocytes 0 % 0-10 Blood neutrophils automated count (number/volume) 5.2 10*3 1.8-7.8 Blood lymphocytes automated count (number/volume) 3.0 10*3 1.0-4.0 Blood monocytes automated count (number/volume) 0. 7 10*3 0.0-1.0 Automated eosinophil count 0.1 10*3/uL 0 .0-0.3 Automated blood basophil count (count/volume) 0.0 10*3/uL 0.0-0.1 PT panel in platelet poor plasma by coag ulation assay - 07/06/19 12:55 Prothrombin time (PT) in platelet poor plasma by coagu lation assay 31.6 s 12.2-14.7 INR in platelet poor plasma or blood by coagulation as say 2.9 0.8-1.4 Activated partial thromboplastin time (a PTT) in platelet poor plasma bycoagulation assay - 07/06/19 12:55 Activated partial thromboplastin time (a PTT) in platelet poor plasma bycoagulation assay 45 s 24-35 Magnesium - 07/06/19 12:55 Magnesium 2.0 mg/dL 1.6-2.4 Serum or plasma troponin i.cardiac measu rement (mass/volume) - 07/06/19 12:55 Serum or plasma troponin i.cardiac measurement (mass/v olume) < ng/mL <0.028 Serum or plasma thyrotropin measurement by detection limit <=0.05 miu/l (units/volume) - 07/06/19 12:55 Serum or plasma thyrotropin measurement by detection limit <=0.05 miu/l (units/volume) 1.37 u[iU]/mL 0.35-4.94 Comprehensive metabolic panel - 07/06/19 12:55 Serum or plasma sodium measurement (moles/volume) 141 mmol/L 135-145 Serum or plasma potassium measurement (moles/volume) 3.5 mmol/L 3.6-5.0 Serum or plasma chloride measurement (moles/volume) 103 mmol/L 98-107 Carbon dioxide 24 mmol/L 21-32 Serum or plasma anion gap determination (moles/volume) 14 mmol/L 5-14 Serum or plasma urea nitrogen measurement (mass/volume ) 12 mg/dL 7-18 Serum or plasma creatinine measurement (mass/volume) 0.82 mg/dL 0.60-1.30 Serum or plasma urea nitrogen/creatinine mass ratio 15 NRG Serum or plasma creatinine measurement w ith calculation of estimated glomerular filtration rate > NRG Serum or plasma glucose measurement (mass/volume) 106 mg/dL 70-105 Serum or plasma calcium measurement (mass/volume) 9.7 mg/dL 8.5-10.1 Serum or plasma total bilirubin measurement (mass/volu me) 0.4 mg/dL 0.1-1.0 Serum or plasma alkaline phosphatase jose surement (enzymatic activity/volume) 56 U/L 40-136 Serum or plasma aspartate aminotransfera se measurement (enzymatic activity/volume) 25 U/L 5-34 Serum or plasma alanine aminotransferase measurement (enzymatic activity/volume) 32 U/L 0-55 Serum or plasma protein measurement (mass/volume) 7.9 g/dL 6.4-8.2 Serum or plasma albumin measurement (mass/volume) 5.0 g/dL 3.2-4.5 Complete blood count (CBC) with automate d white blood cell (WBC) differential - 07/13/19 14:30 Blood leukocytes automated count (number/volume) 8.3 10*3/uL 4.3-11.0 Blood erythrocytes automated count (number/volume) 4.38 10*6/uL 4.35-5.85 Venous blood hemoglobin measurement (mass/volume) 14.1 g/dL 11.5-16.0 Blood hematocrit (volume fraction) 42 % 35-52 Automated erythrocyte mean corpuscular volume 96 [ foz_us] 80-99 Automated erythrocyte mean corpuscular h emoglobin (mass per erythrocyte) 32 pg 25-34 Automated erythrocyte mean corpuscular h emoglobin concentration measurement (mass/volume) 33 g/dL 32-36 Automated erythrocyte distribution width ratio 12. 4 % 10.0- 14.5 Automated blood platelet count (count/volume) 306 10*3/uL 130-400 Automated blood platelet mean volume measurement 8.9 [foz_us] 7.4-10.4 Automated blood neutrophils/100 leukocytes 60 % 42-75 Automated blood lymphocytes/100 leukocytes 32 % 12-44 Blood monocytes/100 leukocytes 7 % 0-12 Automated blood eosinophils/100 leukocytes 1 % 0-10 Automated blood basophils/100 leukocytes 0 % 0-10 Blood neutrophils automated count (number/volume) 5.0 10*3 1.8-7.8 Blood lymphocytes automated count (number/volume) 2.7 10*3 1.0-4.0 Blood monocytes automated count (number/volume) 0. 5 10*3 0.0-1.0 Automated eosinophil count 0.1 10*3/uL 0 .0-0.3 Automated blood basophil count (count/volume) 0.0 10*3/uL 0.0-0.1 PT panel in platelet poor plasma by coag ulation assay - 07/13/19 14:30 Prothrombin time (PT) in platelet poor plasma by coagu lation assay 23.7 s 12.2-14.7 INR in platelet poor plasma or blood by coagulation as say 2.0 0.8-1.4 Activated partial thromboplastin time (a PTT) in platelet poor plasma bycoagulation assay - 07/13/19 14:30 Activated partial thromboplastin time (a PTT) in platelet poor plasma bycoagulation assay 35 s 24-35 Serum or plasma troponin i.cardiac measu rement (mass/volume) - 07/13/19 14:30 Serum or plasma troponin i.cardiac measurement (mass/v olume) < ng/mL <0.028 Comprehensive metabolic panel - 07/13/19 14:30 Serum or plasma sodium measurement (moles/volume) 141 mmol/L 135-145 Serum or plasma potassium measurement (moles/volume) 3.6 mmol/L 3.6-5.0 Serum or plasma chloride measurement (moles/volume) 104 mmol/L 98-107 Carbon dioxide 29 mmol/L 21-32 Serum or plasma anion gap determination (moles/volume) 8 mmol/L 5-14 Serum or plasma urea nitrogen measurement (mass/volume ) 13 mg/dL 7-18 Serum or plasma creatinine measurement (mass/volume) 0.83 mg/dL 0.60-1.30 Serum or plasma urea nitrogen/creatinine mass ratio 16 NRG Serum or plasma creatinine measurement w ith calculation of estimated glomerular filtration rate > NRG Serum or plasma glucose measurement (mass/volume) 88 mg/dL 70-105 Serum or plasma calcium measurement (mass/volume) 9.3 mg/dL 8.5-10.1 Serum or plasma total bilirubin measurement (mass/volu me) 0.2 mg/dL 0.1-1.0 Serum or plasma alkaline phosphatase jose surement (enzymatic activity/volume) 58 U/L 40-136 Serum or plasma aspartate aminotransfera se measurement (enzymatic activity/volume) 20 U/L 5-34 Serum or plasma alanine aminotransferase measurement (enzymatic activity/volume) 24 U/L 0-55 Serum or plasma protein measurement (mass/volume) 7.2 g/dL 6.4-8.2 Serum or plasma albumin measurement (mass/volume) 4.5 g/dL 3.2-4.5 CALCIUM CORRECTED 8.9 mg/dL 8.5-10.1 Magnesium - 07/13/19 14:30 Magnesium 2.0 mg/dL 1.6-2.4 Myoglobin, serum - 07/13/19 14:30 Myoglobin, serum 45.0 ng/mL 10.0-92.0 Serum or plasma C reactive protein measu rement (mass/volume) - 07/13/19 14:30 Serum or plasma C reactive protein measurement (mass/v olume) 0.27 mg/dL 0.00-0.50 Fibrin D-dimer FEU measurement in platel et poor plasma (mass/volume) - 07/15/19 13:31 Fibrin D-dimer FEU measurement in platelet poor plasma (mass/volume) <= ug/mL 0.00-0.49 Complete blood count (CBC) with automate d white blood cell (WBC) differential - 01/28/20 12:00 Blood leukocytes automated count (number/volume) 11.4 10*3/uL 4.3-11.0 Blood erythrocytes automated count (number/volume) 4.65 10*6/uL 4.35-5.85 Venous blood hemoglobin measurement (mass/volume) 15.0 g/dL 11.5-16.0 Blood hematocrit (volume fraction) 43 % 35-52 Automated erythrocyte mean corpuscular volume 92 [ foz_us] 80-99 Automated erythrocyte mean corpuscular h emoglobin (mass per erythrocyte) 32 pg 25-34 Automated erythrocyte mean corpuscular h emoglobin concentration measurement (mass/volume) 35 g/dL 32-36 Automated erythrocyte distribution width ratio 12. 7 % 10.0- 14.5 Automated blood platelet count (count/volume) 333 10*3/uL 130-400 Automated blood platelet mean volume measurement 8.9 [foz_us] 7.4-10.4 Automated blood neutrophils/100 leukocytes 66 % 42-75 Automated blood lymphocytes/100 leukocytes 26 % 12-44 Blood monocytes/100 leukocytes 7 % 0-12 Automated blood eosinophils/100 leukocytes 1 % 0-10 Automated blood basophils/100 leukocytes 0 % 0-10 Blood neutrophils automated count (number/volume) 7.5 10*3 1.8-7.8 Blood lymphocytes automated count (number/volume) 3.0 10*3 1.0-4.0 Blood monocytes automated count (number/volume) 0. 8 10*3 0.0-1.0 Automated eosinophil count 0.1 10*3/uL 0 .0-0.3 Automated blood basophil count (count/volume) 0.0 10*3/uL 0.0-0.1 PT panel in platelet poor plasma by coag ulation assay - 01/28/20 12:00 Prothrombin time (PT) in platelet poor plasma by coagu lation assay 27.1 s 12.2-14.7 INR in platelet poor plasma or blood by coagulation as say 2.5 0.8-1.4 Activated partial thromboplastin time (a PTT) in platelet poor plasma bycoagulation assay - 01/28/20 12:00 Activated partial thromboplastin time (a PTT) in platelet poor plasma bycoagulation assay 41 s 24-35 Comprehensive metabolic panel - 01/28/20 12:00 Serum or plasma sodium measurement (moles/volume) 139 mmol/L 135-145 Serum or plasma potassium measurement (moles/volume) 3.2 mmol/L 3.6-5.0 Serum or plasma chloride measurement (moles/volume) 99 mmol/L 98-107 Carbon dioxide 26 mmol/L 21-32 Serum or plasma anion gap determination (moles/volume) 14 mmol/L 5-14 Serum or plasma urea nitrogen measurement (mass/volume ) 12 mg/dL 7-18 Serum or plasma creatinine measurement (mass/volume) 0.75 mg/dL 0.60-1.30 Serum or plasma urea nitrogen/creatinine mass ratio 16 NRG Serum or plasma creatinine measurement w ith calculation of estimated glomerular filtration rate > NRG Serum or plasma glucose measurement (mass/volume) 94 mg/dL 70-105 Serum or plasma calcium measurement (mass/volume) 9.5 mg/dL 8.5-10.1 Serum or plasma total bilirubin measurement (mass/volu me) 0.5 mg/dL 0.1-1.0 Serum or plasma alkaline phosphatase jose surement (enzymatic activity/volume) 63 U/L 40-136 Serum or plasma aspartate aminotransfera se measurement (enzymatic activity/volume) 27 U/L 5-34 Serum or plasma alanine aminotransferase measurement (enzymatic activity/volume) 28 U/L 0-55 Serum or plasma protein measurement (mass/volume) 7.9 g/dL 6.4-8.2 Serum or plasma albumin measurement (mass/volume) 4.7 g/dL 3.2-4.5 Magnesium - 01/28/20 12:00 Magnesium 1.9 mg/dL 1.6-2.4 Myoglobin, serum - 01/28/20 12:00 Myoglobin, serum 86.8 ng/mL 10.0-92.0 Serum or plasma troponin i.cardiac measu rement (mass/volume) - 01/28/20 12:00 Serum or plasma troponin i.cardiac measurement (mass/v olume) < ng/mL <0.028 Encounters ACCT No. Visit Date/Time Discharge Status Pt. Type Provider Facility Loc./Unit Complaint [id number] 04/04/2015 10:30:00 ACT Document Registration [id number] 12/05/2019 13:00:00 12/05/2019 23:59:5 9 CLS Outpatient MADL BOTANY PROFESSOR, JIIM L [facility] [id number] 10/07/2014 09:58:00 10/07/2014 23:59: 59 CLS Outpatient MADL BOTANY PROFESSOR, JIMI L [id number] 09/14/2014 13:21:00 09/14/2014 23:59: 59 CLS Outpatient MADL BOTANY PROFESSOR, JIMI L [id number] 08/08/2014 12:10:00 08/08/2014 23:59: 59 CLS Outpatient MADL BOTANY PROFESSOR, JIMI L [id number] 08/04/2014 12:55:00 08/04/2014 23:59: 59 CLS Outpatient MADL BOTANY PROFESSOR, JIMI L [id number] 07/22/2014 13:26:00 07/22/2014 23:59: 59 CLS Outpatient MADL BOTANY PROFESSOR, JIMI L [id number] 07/11/2014 10:58:00 07/11/2014 23:59: 59 CLS Outpatient MADL BOTANY PROFESSOR, JIMI L [id number] 07/07/2014 12:01:00 07/07/2014 23:59: 59 CLS Outpatient MADL BOTANY PROFESSOR, JIMI L [id number] 06/30/2014 10:23:00 06/30/2014 23:59: 59 CLS Outpatient MADL BOTANY PROFESSOR, JIMI L [id number] 06/22/2014 12:27:00 06/22/2014 23:59: 59 CLS Outpatient MADL BOTANY PROFESSOR, JIMI L [id number] 06/17/2014 12:28:00 06/17/2014 23:59: 59 CLS Outpatient MADL BOTANY PROFESSOR, JIMI L [id number] 06/09/2014 09:59:00 06/09/2014 23:59: 59 CLS Outpatient MADL BOTANY PROFESSOR, JIMI L [id number] 06/03/2014 13:50:00 06/03/2014 23:59: 59 CLS Outpatient MADL BOTANY PROFESSOR, JIMI L [id number] 05/27/2014 14:50:00 05/27/2014 23:59: 59 CLS Outpatient MADL BOTANY PROFESSOR, JIMI L [id number] 05/20/2014 10:54:00 05/20/2014 23:59: 59 CLS Outpatient MADL BOTANY PROFESSOR, JIMI L [id number] 05/10/2014 10:59:00 05/10/2014 23:59: 59 CLS Outpatient MADL BOTANY PROFESSOR, JIMI L [id number] 04/22/2014 08:55:00 04/22/2014 23:59: 59 CLS Outpatient MADL BOTANY PROFESSOR, JIMI L [id number] 04/08/2014 08:43:00 04/08/2014 23:59: 59 CLS Outpatient CHAPMAN DODAYANA [id number] 03/28/2014 09:28:00 03/28/2014 23:59: 59 CLS Outpatient CHAPMAN DODAYANA [id number] 02/25/2014 13:47:00 02/25/2014 23:59: 59 CLS Outpatient MADL BOTANY PROFESSOR, JIMI L [id number] 02/22/2014 15:07:00 02/22/2014 23:59: 59 CLS Outpatient CHAPMAN DODAYANA [id number] 02/08/2014 13:26:00 02/08/2014 23:59: 59 CLS Outpatient CHAPMAN DODAYANA [id number] 01/12/2014 09:59:00 01/12/2014 23:59: 59 CLS Outpatient CHAPMAN DODAYANA [id number] 01/03/2014 15:51:00 01/03/2014 23:59: 59 CLS Outpatient MADL BOTANY PROFESSOR, JIMI L [id number] 12/30/2013 11:53:00 12/30/2013 23:59: 59 CLS Outpatient MADL BOTANY PROFESSOR, JIMI L [id number] 12/23/2013 11:42:00 12/23/2013 23:59: 59 CLS Outpatient MADL BOTANY PROFESSOR, JIMI L [id number] 12/09/2013 08:59:00 12/09/2013 23:59: 59 CLS Outpatient MADL BOTANY PROFESSOR, JIMI L [id number] 11/25/2013 12:26:00 11/25/2013 23:59: 59 CLS Outpatient MADL JIMI MITCHELL [id number] 11/08/2013 08:17:00 11/08/2013 23:59: 59 CLS Outpatient MADL JIMI MITCHELL [id number] 11/03/2013 14:19:00 11/03/2013 23:59: 59 CLS Outpatient MADL JIMI MITCHELL [id number] 10/13/2013 08:49:00 10/13/2013 23:59: 59 CLS Outpatient DAYANA CHAPMAN DO [id number] 08/05/2013 09:00:00 08/05/2013 23:59: 59 CLS Outpatient JAMIE DERAS MD [id number] 07/22/2013 09:23:00 07/22/2013 23:59: 59 CLS Outpatient JAMIE DERAS MD [id number] 07/13/2013 11:15:00 07/13/2013 23:59: 59 CLS Outpatient PAT ZAMAN APRN [id number] 06/24/2013 09:40:00 06/24/2013 23:59: 59 CLS Outpatient JAMIE DERAS MD [id number] 05/21/2013 08:55:00 05/21/2013 23:59: 59 CLS Outpatient JAMIE DERAS MD [id number] 02/19/2013 09:00:00 02/19/2013 23:59: 59 CLS Outpatient JAMIE DERAS MD [id number] 09/28/2012 09:05:00 09/28/2012 23:59: 59 CLS Outpatient [id number] 09/14/2012 09:00:00 09/14/2012 23:59: 59 CLS Outpatient JAMIE DERAS MD [id number] 09/08/2012 09:06:00 09/08/2012 23:59: 59 CLS Outpatient JAMIE DERAS MD [id number] 08/31/2012 08:57:00 08/31/2012 23:59: 59 CLS Outpatient JAMIE DERAS MD [id number] 08/25/2012 18:53:00 08/25/2012 23:59: 59 CLS Outpatient [id number] 08/18/2012 10:22:00 08/18/2012 23:59: 59 CLS Outpatient JAMIE DERAS MD [id number] 08/18/2012 10:22:00 08/18/2012 23:59: 59 CLS Outpatient NED PAYNE, CELESTE [id number] 08/10/2012 10:57:00 08/10/2012 23:59: 59 CLS Outpatient BRAEDEN PAYNE, JAMIE Swift [id number] 06/05/2012 15:50:00 06/05/2012 23:59: 59 CLS Outpatient MIGUEL PAYNE, DANAE [id number] 05/20/2012 15:08:00 05/20/2012 23:59:5 9 CLS Outpatient [id number] 02/08/2013 09:05:00 Document Registration [id number] 01/26/2013 10:18:00 Document Registration [id number] 01/06/2013 09:14:00 Document Registration [id number] 12/22/2012 08:50:00 Document Registration [id number] 11/27/2012 09:50:00 Document Registration [id number] 11/17/2012 08:58:00 Document Registration [id number] 10/26/2012 09:23:00 Document Registration [id number] 10/19/2012 09:04:00 Document Registration [id number] 10/17/2012 13:36:00 Document Registration [id number] 10/17/2012 13:36:00 Document Registration [id number] 10/06/2012 08:50:00 Document Registration [id number] 06/17/2019 16:03:00 23:59:59 CLS Outpatient MITCHELL IBARRA APRN [facility] RAD SCREENING [id number] 01/17/2020 13:51:00 23:59:59 CLS Outpatient Jamison MA MD [facility] CARD POTS,PALPITATIONS,PAROX YSMAL SVT [id number] 12/31/2019 11:07:00 23:59:59 CLS Outpatient MITCHELL IBARRA APRN [facility] RAD LEFT LOWER LEG SWELLIN G,HX OF DVT PE [id number] 12/28/2019 14:34:00 23:59:59 CLS Outpatient MITCHELL IBARRA APRN [facility] RAD PAIN IN L ANKLE [id number] 08/05/2019 14:08:00 00:01:00 DIS Outpatient MITCHELL IBARRA APRN [facility] CARD ORTHOSTATIC HYPOTENSIO N [id number] 04/30/2019 09:05:00 00:01:00 DIS Outpatient JAG MUKHERJEE MD [facility] CARD PALPITATIONS [id number] 07/27/2019 14:01:00 15:35:00 DIS Outpatient STAR MARTINEZ MD [facility] SDC PNEUNOMIA [id number] 07/15/2019 13:18:00 23:59:59 CLS Outpatient MITCHELL IBARRA APRN [facility] LAB DYSPNEA [id number] 07/13/2019 13:19:00 16:48:00 DIS Emergency ALEXANDREA LIM MD [facility] ER POSSIBLE BLOOD CLOT [id number] 07/06/2019 12:38:00 15:12:00 DIS Emergency RICK PEREA MD [facility] ER TONGUE/FACE NUM B/IRREGULAR HR [id number] 05/26/2019 15:20:00 23:59:59 CLS Outpatient TIFFANIE FOFANA BOTANY PROFESSOR [facility] LAB ACUTE SINUSITIS [id number] 04/16/2019 07:43:00 23:59:59 CLS Preadmit KRISTINE AMIN DO [facility] RAD SCREENING [id number] 03/14/2019 11:14:00 13:15:00 DIS Emergency GÓMEZ MCMANUS [facility] ER CHEST PAIN [id number] 10/19/2018 15:43:00 23:59:59 CLS Preadmit JAG MUKHERJEE MD [facility] CARD PALPITATION,DIZZINESS [id number] 09/10/2018 13:49:00 23:59:59 CLS Outpatient KRISTINE AMIN DO [facility] RAD RT POSTERIOR NE CK MASS/FAMILIAL THYROID CA [id number] 07/18/2018 13:25:00 019 14:05:00 DIS Emergency SAMIRA PALACIOS [facility] ER ABSCESS TOOTH [id number] 07/03/2018 16:47:00 019 17:05:00 DIS Outpatient TAMMY PERRY BOTANY PROFESSOR [facility] SDC RECURRENT INFEC TION ASO POSITIVE [id number] 05/10/2018 11:30:00 018 13:28:00 DIS Emergency NED AGUSTIN SINGING TEACHER [facility] ER L EAR AND JAW PAIN [id number] 04/07/2018 14:03:00 018 23:59:59 CLS Outpatient LONNY PAYNE, JAG Garcia [facility] CARD PALPITATION,SOB,DIZZINE SS [id number] 10/14/2017 13:43:00 018 23:59:59 CLS Outpatient TAMMY PERRY R BOTANY PROFESSOR [facility] RAD SCREENING [id number] 10/06/2017 17:02:00 018 23:59:59 CLS Outpatient TAMMY PERRY R BOTANY PROFESSOR [facility] RAD RIGHT SHOULDER PAIN [id number] 07/22/2017 13:48:00 018 23:59:59 CLS Outpatient KRISTINE AMIN DO S [facility] RAD R22.1, R05 [id number] 06/06/2017 09:37:00 017 23:59:59 CLS Preadmit KRISTINE AMIN DO S [facility] RAD SCREENING [id number] 05/01/2017 15:45:00 017 23:59:59 CLS Preadmit LEWIS CUEVA MD [facility] RAD CHRONIC PASINUSITIS [id number] 03/11/2017 17:40:00 017 23:59:59 CLS Outpatient KRISTINE AMIN DO S [facility] RAD R59.0,M54.2 [id number] 03/03/2017 12:52:00 23:59:59 CLS Outpatient NEVA AMIN DOQUELINE S [facility] RAD RT FLANK PAIN [id number] 02/10/2017 13:57:00 16:34:00 DIS Emergency AMPARO WHITE BOTANY PROFESSOR [facility] ER ABD PAIN [id number] 02/05/2017 13:16:00 017 23:59:59 CLS Preadmit NEVA AMIN DOQUELINE S [facility] RAD PITUITARY MASS [id number] 07/07/2016 20:07:00 22:04:00 DIS Emergency RICK PEREA MD [facility] ER SOA [id number] 05/12/2016 19:49:00 016 22:17:00 DIS Emergency AMPARO WHITE APRN [facility] ER HEART RATE DEHYDRATION VOMITING [id number] 10/19/2015 11:17:00 016 23:59:59 CLS Outpatient SHAUNNA LOCKHART MD [facility] RAD RT SIDED NECK MASS [id number] 10/16/2015 17:46:00 016 23:59:59 CLS Outpatient SHAUNNA LOCKHART MD [facility] LAB PULMONARY EMBOLISM [id number] 10/13/2015 14:00:00 016 23:59:59 CLS Outpatient LIZZYCOLIN CLARKKRISTINE S [facility] RAD SCREENING [id number] 10/05/2015 13:59:00 23:59:59 CLS Outpatient LARRY MCKEON BOTANY PROFESSOR [facility] RAD RIGHT NECK MASS [id number] 08/04/2015 00:07:00 23:59:59 CLS Preadmit LAURA ANGELES ANP [facility] LAB FEVER UNSPCIFIED CAUSE, MYGALIA,DVT, [id number] 05/05/2015 11:21:00 016 00:01:00 DIS Outpatient LAURA ANGELES ANP [facility] LAB FEVER UNSPCIFIE D CAUSE,MYGALIA,DVT, [id number] 06/23/2015 00:12:00 016 23:59:59 CLS Preadmit RENE, ARTIE L SINGING TEACHER [facility] SD DEHYDRATION,LYMPHADENOPATHY,FEVER [id number] 05/08/2015 16:26:00 00:01:00 DIS Outpatient RENE, ARTIE L SINGING TEACHER [facility] DEHYDRATION,LYMPHADENOPATHY,FEVER [id number] 04/17/2015 12:57:00 23:59:59 CLS Outpatient RENE, ARTIE L SINGING TEACHER [facility] [facility] RAD PELVIC PAIN, NE CK NODULE [id number] 03/23/2015 01:24:00 23:59:59 CLS Preadmit RENE, ARTIE L SINGING TEACHER [facility] SURG RCR DISEMINSTED STR EP [id number] 03/21/2015 10:55:00 015 00:01:00 DIS Outpatient RENE, ARTIE L SINGING TEACHER [facility] SURG RCR DISEMINSTED STR EP [id number] 03/12/2015 10:20:00 015 00:01:00 DIS Outpatient RENE, ARTIE L SINGING TEACHER [facility] SDC DEHYDRATION [id number] 03/20/2015 16:50:00 23:59:59 CLS Outpatient RENE, ARTIE L SINGING TEACHER [facility] RAD VISUAL FIELD LO SS, MIGRANES [id number] 03/16/2015 21:11:00 00:53:00 DIS Emergency LETICIA BOCANEGRA DO [facility] ER L EYE BLINDNESS [id number] 03/07/2015 17:51:00 09/15/2 015 20:20:00 DIS Emergency RAYRAY MD, DEWAYNE A [facility] ER CP [id number] 02/21/2015 14:51:00 015 23:59:59 CLS Outpatient TROY MULLEN SINGING TEACHER [facility] ONC [id number] 02/21/2015 13:00:00 23:59:59 CLS Preadmit JAG MUKHERJEE MD [facility] CARD PALPITATIONS,EMBOLI,SOB [id number] 11/22/2014 12:47:00 00:01:00 DIS Outpatient JAG MUKHERJEE MD [facility] CARD [id number] 01/30/2015 03:15:00 23:59:59 CLS Outpatient 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 [facility] RAD PE TUMOR TIA [id number] 01/26/2015 13:19:00 23:59:59 CLS Outpatient AMINAH RENE DO [facility] SDC DEHYDRATION [id number] 01/05/2015 13:50:00 015 16:26:00 DIS Emergency GÓMEZ MCMANUS [facility] ER SOA/RAPID HEART RATE [id number] 01/03/2015 13:15:00 23:59:59 CLS Outpatient ARTIE RENE L SINGING TEACHER [facility] RAD PELVIC PAIN [id number] 12/27/2014 11:36:00 23:59:59 CLS Outpatient 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 RENE L SINGING TEACHER [facility] RAD PELVIC PAIN, EN LARGED THYROID [id number] 12/21/2014 00:10:00 23:59:59 CLS Preadmit LANA COLLIER [facility] ONC [id number] 11/17/2014 13:21:00 015 00:01:00 DIS Outpatient LANA COLLIER V ia [facility] ONC [id number] 12/16/2014 10:50:00 015 12:40:00 DIS Emergency RICK PEREA MD [facility] ER POSS MED REACTI ON [id number] 12/07/2014 10:39:00 015 23:59:59 CLS Outpatient LONNY PAYNE, JAG Garcia [facility] CARD PALPITATIONS,PE,SOB [id number] 11/29/2014 10:44:00 015 13:20:00 DIS Emergency SAHRARAHEL Zamora DOA K Vi a [facility] ER RAPID HEART/SOA IRR BP [id number] 11/08/2014 12:15:00 015 13:56:00 DIS Emergency RICK PEREA MD [facility] ER SOA- IRR HEART RATE [id number] 10/21/2014 16:30:00 015 18:18:00 DIS Emergency AMPARO WHITE APRN [facility] ER [id number] 09/24/2014 20:18:00 015 23:43:00 DIS Emergency GÓMEZ MCMANUS [facility] ER [id number] 09/22/2014 18:36:00 015 21:35:00 DIS Emergency AMINAH ÁLVAREZ DO [facility] ER [id number] 09/14/2014 14:08:00 015 23:59:59 CLS Outpatient KITA PAYNE, SALIMA Keys [facility] LAB [id number] 09/13/2014 19:58:00 015 06:20:00 DIS Outpatient ASYA RODRIGUEZ DO [facility] 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 [id number] 08/02/2014 08:54:00 015 23:59:59 CLS Outpatient ASYA RODRIGUEZ DO [facility] CARD [id number] 07/30/2014 12:04:00 015 15:00:00 DIS Emergency JENNY CONTRERAS MD [facility] ER [id number] 07/27/2014 12:33:00 015 23:59:59 CLS Outpatient ASYA RODRIGUEZ DO [facility] LAB [id number] 07/25/2014 15:25:00 015 23:59:59 CLS Outpatient ASYA RODRIGUEZ DO [facility] RAD [id number] 06/03/2014 16:17:00 014 23:59:59 CLS Outpatient ARTIE HARRIS [facility] RAD [id number] 09/16/2013 09:19:00 014 23:59:59 CLS Outpatient [id number] 01/28/2020 12:15:00 Document Registration [id number] 06/17/2019 16:03:00 Document Registration [id number] 06/03/2014 14:55:00 Document Registration [id number] 06/03/2014 14:55:00 Document Registration [id number] 09/17/2012 09:01:00 Document Registration [id number] 08/14/2012 11:36:00 Document Registration [id number] 07/30/2012 11:41:00 Document Registration [id number] 07/30/2012 09:12:00 Document Registration [id number] 07/20/2012 06:00:00 Document Registration [id number] 07/14/2012 08:06:00 Document Registration [id number] 06/08/2012 09:15:00 Document Registration [id number] 03/27/2012 08:44:00 Document Registration [id number] 03/19/2012 09:02:00 Document Registration [id number] 01/13/2012 09:01:00 Document Registration [id number] 10/14/2011 09:58:00 Document Registration [id number] 09/19/2011 09:02:00 Document Registration [id number] 09/11/2011 09:59:00 Document Registration [id number] 08/15/2011 14:20:00 Document Registration [id number] 08/08/2011 12:47:00 Document Registration [id number] 03/21/2011 09:35:00 Document Registration [id number] 12/20/2010 09:05:00 Document Registration [id number] 09/17/2010 08:54:00 Document Registration [id number] 05/28/2010 11:28:00 Document Registration [id number] 05/22/2010 08:31:00 Document Registration [id number] 04/15/2010 10:50:00 Document Registration [id number] 03/08/2010 18:54:00 Document Registration [id number] 02/07/2010 08:40:00 Document Registration [id number] 01/13/2010 23:02:00 Document Registration [id number] 01/06/2010 07:42:00 Document Registration [id number] 11/09/2009 11:04:00 Document Registration [id number] 07/28/2009 12:40:00 Document Registration 02/201705/24/2019 16:50:19 05/24/2019 23:59 :59 Kristine Thao
[2020-01-28] MEDS ORDERED: FAMO-119 PO (16:28)
[2020-01-28 16:45] VITALS: BP 130/81
== END 2020-01-28 16:45 | disposition home or self-care (01) ==
LOC: EDUNIT# 11:48 → ER 11:49
DX: R07.9 Chest pain, unspecified (principal); I10 Essential (primary) hypertension; F41.9 Anxiety disorder, unspecified; K58.9 Irritable bowel syndrome, unspecified; M54.9 Dorsalgia, unspecified; G89.29 Other chronic pain; M54.2 Cervicalgia; Z85.42 Personal history of malignant neoplasm of other parts of uterus; Z88.2 Allergy status to sulfonamides; Z88.0 Allergy status to penicillin; Z88.1 Allergy status to other antibiotic agents; Z88.8 Allergy status to other drugs, medicaments and biological substances; Z88.5 Allergy status to narcotic agent; Z79.01 Long term (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; Z77.22 Contact with and (suspected) exposure to environmental tobacco smoke (acute) (chronic); Z86.711 Personal history of pulmonary embolism
CPT/HCPCS: 36415; 71045; 80053; 83735; 83874; 84484; 85025; 85610; 85730; 93005; 93041

== ENCOUNTER → 2020-05-11 | Outpatient (CLI) | payer BC ==
[~2020-05-11] MED LIST changes: +FAMO-119 PO
--- NOTE | 2020-05-11 11:59 | Diagnostic Imaging Report ---
Indication: Acute sinusitis AP, lateral and Vasquez' view sinuses are obtained. Frontal sinuses are clear. The ethmoid air cells are clear. Sphenoid sinuses clear. Maxillary sinuses are clear. IMPRESSION: Negative paranasal sinuses. Dictated by: Dictated on workstation # [id number]
== END ==
LOC: RAD 11:22
DX: J01.90 Acute sinusitis, unspecified (principal)
CPT/HCPCS: 70220

== ENCOUNTER 2020-12-10 07:31 | Emergency (ER) | payer BC ==
[~2020-12-10] VITALS: Ht 160 cm; Wt 77.0 kg
[2020-12-10 08:15] LABS: BILIRUBIN,URINE NEGATIVE (NEGATIVE); CLARITY,URINE CLEAR; COLOR,URINE YELLOW; GLUCOSE, URINE (UA) NEGATIVE (NEGATIVE); KETONES,URINE NEGATIVE (NEGATIVE); LEUKOCYTE ESTERASE ,URINE NEGATIVE (NEGATIVE); NITRITE,URINE NEGATIVE (NEGATIVE); PROTEIN,URINE NEGATIVE (NEGATIVE)
[2020-12-10] MEDS ORDERED: LACTATED RINGERS 1,000 ML IV STA (08:21)
[2020-12-10 08:41] LABS: BACTERIA,URINE NEGATIVE /HPF; RBC,URINE RARE /HPF; WBC,URINE RARE /HPF
[2020-12-10 10:03] LABS: INR 1.3 (0.8-1.4); PROTHROMBIN TIME PATIENT 16.1 SEC (12.2-14.7)
[2020-12-10] MEDS ORDERED: ENOXAPARIN 100 MG/1 ML (LOVENOX) SYR ONE (10:52)
[2020-12-10] MEDS ORDERED: ENOXAPARIN 60 MG/0.6 ML (LOVENOX) SYR ONE (10:53)
--- NOTE | 2020-12-10 10:58 | ED Cough/URI ---
General Chief Complaint: Fever-Adult/Adol Stated Complaint: FEVER, DIZZY, SORE THROAT, CONGESTION,HEADACHE Nursing Triage Note: Pt c/o fever, neck pain, back pain, cough and sore throat. Pt reports symptoms began last week after accidently inhaling liquid chlorine. Pt has not been vaccinated for COVID due to clotting disorder per pt. Pt reports temperature of 103.5 upon waking this morning. Sepsis Screen: No Definite Risk Source: patient Exam Limitations: no limitations History of Present Illness Date Seen by Provider: Dec 10, 2020 Time Seen by Provider: 08:05 Initial Comments Here with report of sore throat and cough as well as fever, chills, diarrhea and body aches. 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 She is on warfarin but was subtherapeutic earlier this week. Reports taking her meds as directed. She is not vaccinated for COVID-19 due to concerns for clotting disorder. Timing/Duration: getting worse Severity/Quality: moderate, dry cough Prior Episodes/Possible Cause: no prior episodes Modifying Factors: Worse With Coughing; Improves With Rest Associated Symptoms: cough, fever/chills, muscle aches, nasal congestion, shortness of breath, sore throat Allergies and Home Medications Allergies Coded Allergies: Sulfa (Sulfonamide Antibiotics) (Unverified Allergy, Severe, PER PT "THROAT SWELLS", 09/11/11) bupropion (Unverified Allergy, Severe, IRREG HEART RATE, 10/21/14) amoxicillin (Unverified Allergy, Mild, RASH AND VISUAL DISTURBANCES/VISUAL LOSS, 03/21/15) PER PT REPORT clavulanic acid (Unverified Allergy, Mild, RASH AND VISUAL DISTURBANCES/VISUAL LOSS, 03/21/15) PER PT REPORT cefuroxime axetil (Unverified Allergy, Unknown, PER PATIENT CAN TAKE ROCEPHIN, 03/21/15) PER [facility] PATIENT RECEIVED ROCEPHIN ON 02/23 WITHOUT ISSUE ciprofloxacin (Verified Allergy, Unknown, 03/14/19) levofloxacin (Unverified Allergy, Unknown, Tachycardia, 05/10/18) lidocaine (Verified Allergy, Unknown, 03/14/19) cefdinir (Unverified Adverse Reaction, Unknown, 07/23/19) tramadol (Unverified Adverse Reaction, Unknown, HEADACHE, 01/05/15) Uncoded Allergies: PENICILLIN (Allergy, Mild, RASH, 03/21/15) PER PT REPORT Home Medications Acetazolamide 125 Mg Tablet, 62.5 MG PO DAILY, (Reported) Capsaicin 1 Each Adh..patch, 1 EACH TP BID PRN for PAIN-MODERATE Prescribed by: AMPARO WHITE on 02/10/17 1525 Cholestyramine/Aspartame 4 G/Pkt Packet, 2 G PO HS, (Reported) PT STATES ONLY TAKES HALF DOSE NOW (2G) AND MIXES IT WITH WATER Cyclobenzaprine Hcl 10 Mg Tablet, 0.5 TAB PO HS, (Reported) Famotidine 20 Mg Tablet, 20 MG PO BID Prescribed by: ALEXANDREA JORDAN on 01/28/20 1628 Hydrocodone Bit/Acetaminophen 1 Each Tablet, 0.5 EACH PO Q4H PRN, (Reported) PT STATES TAKES 1/2 TAB Q4-6H PRN PAIN D/T INCREASED DOSE CAUSES DROWSINESS Hydroxyzine Pamoate 25 Mg Cap, 25 MG PO PRN, (Reported) Nebivolol HCl 10 Mg Tab, 15 MG PO DAILY, (Reported) Warfarin Sodium 5 Mg Tablet, 5 MG PO DAILY, (Reported) Warfarin Sodium 7.5 Mg Tablet, 7.5 MG PO DAILY, (Reported) 7.5 MG TWO DAYS A WEEK Patient Home Medication List Home Medication List Reviewed: Yes Review of Systems Review of Systems Constitutional: see HPI EENTM: see HPI Respiratory: see HPI Cardiovascular: no symptoms reported Gastrointestinal: see HPI Genitourinary: dysuria; No pain Musculoskeletal: see HPI All Other Systems Reviewed Negative Unless Noted: Yes Past Ajierhp-Cbraju-Mfhngv Hx Past Med/Social Hx: Reviewed Nursing Past Med/Soc Hx Patient Social History Alcohol Use: Denies Use Smoking Status: Current Someday Smoker Type Used: Electronic/Vapor 2nd Hand Smoke Exposure: Yes (uses hubert) Recent Infectious Disease Expo: No Recent Hopitalizations: No Immunizations Up To Date Tetanus Booster (TDap): More than 5yrs PED Vaccines UTD: No Date of Influenza Vaccine: Mar 23, 2018 Seasonal Allergies Seasonal Allergies: No Past Medical History Surgeries: Yes (L SHOULDERX2, DNC) Section, Gallbladder, Hysterectomy, Orthopedic Respiratory: Yes Pulmonary Embolism Cardiac: Yes (TACHYCARDIA, POTS SYNDROME, NORMAL STRESS TEST 11/2014) Chronic Edema/Swelling, Hypertension, Palpitations Neurological: Yes (PSEUDOTUMOR CEREBRI DX 12/2009) Headaches /Migraines Reproductive Disorders: Yes (CHORIOCARCINOMA, MULTIPLE MISCARRIAGES) Female Reproductive Disorders: 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 07/2009) Uterine Psychosocial: Yes Anxiety Integumentary: No Blood Disorders: No Family Medical History Reviewed Nursing Family Hx No Pertinent Family Hx Physical Exam Vital Signs - First Documented 12/10/20 07:40 Temp 38.8 Pulse 99 Resp 23 B/P (MAP) 134/75 (94) Pulse Ox 93 O2 Delivery Room Air Capillary Refill : Less Than 3 Seconds Height: 5'3.00" Weight: 168lbs. 0.0oz. 76.100574wv; 30.00 BMI Method:Stated General Appearance: WD/WN, no apparent distress HEENT: PERRL/EOMI, pharynx normal Neck: full range of motion, supple Respiratory: lungs clear, normal breath sounds Cardiovascular: no murmur, tachycardia Gastrointestinal: non tender, soft Extremities: non-tender, normal inspection Neurologic/Psychiatric: alert, oriented x 3 Skin: normal color, warm/dry Progress/Results/Core Measures Suspected Sepsis Recent Fever Within 48 Hours: Yes Infection Criteria Present: None New/Unexplained Altered Menta: No Sepsis Screen: No Definite Risk SIRS Temperature: Pulse: 99 Respiratory Rate: 23 Blood Pressure 134 /75 Mean: 94 Laboratory Tests 12/10/20 09:41: INR Comment 1.3 Results/Orders Lab Results Laboratory Tests Test 12/10/20 07:55 12/10/20 08:00 12/10/20 09:41 Range/Units Urine Color YELLOW Urine Clarity CLEAR Urine pH 7.0 5-9 Urine Specific Gordon 1.010 L 1.016-1.022 Urine Protein NEGATIVE NEGATIVE Urine Glucose (UA) NEGATIVE NEGATIVE Urine Ketones NEGATIVE NEGATIVE Urine Nitrite NEGATIVE NEGATIVE Urine Bilirubin NEGATIVE NEGATIVE Urine Urobilinogen 0.2 < = 1.0 MG/DL Urine Leukocyte Esterase NEGATIVE NEGATIVE Urine RBC (Auto) NEGATIVE NEGATIVE Urine RBC RARE /HPF Urine WBC RARE /HPF Urine Squamous Epithelial Cells 2-5 /HPF Urine Crystals NONE /LPF Urine Bacteria NEGATIVE /HPF Urine Casts NONE /LPF Urine Mucus NEGATIVE /LPF Urine Culture Indicated NO Group A Streptococcus Screen NEGATIVE NEGATIVE Influenza Type A (RT-PCR) Not Detected Not Detecte Influenza Type B (RT-PCR) Not Detected Not Detecte SARS-CoV-2 RNA (RT-PCR) Detected H Not Detecte Prothrombin Time 16.1 H 12.2-14.7 SEC INR Comment 1.3 0.8-1.4 My Orders Orders - RICK PEREA MD Ua Culture If Indicated (12/10/20 08:04) Covid 19 Inhouse Test (12/10/20 08:04) Influenza A And B By Pcr (12/10/20 08:04) Rapid Strep A Screen (12/10/20 08:04) Lactated Ringers (Lr 1000 Ml Iv Solution (12/10/20 08:21) Protime With Inr (12/10/20 09:51) Enoxaparin Injection (Lovenox Injection) (12/10/20 11:00) Vital Signs/I&O 12/10/20 07:40 Temp 38.8 Pulse 99 Resp 23 B/P (MAP) 134/75 (94) Pulse Ox 93 O2 Delivery Room Air Capillary Refill : Less Than 3 Seconds Blood Pressure Mean: 94 Progress Note : Progress Note Seen and evaluated. Covid testing, rapid strep and influenza testing ordered. LR 1 L bolus and UA ordered. Monitor patient. 1103: Patient is on Coumadin. We did check INR and it is subtherapeutic. Lovenox 90 units subcu ordered. Patient has BMI of 35 and has autoimmune disorder. She does qualify for m onoclonal antibody infusion therapy and those orders were written and sent to the pharmacy. She would benefit as she is certainly high risk from Covid infection. Fax sheet given to patient. Discharged home with return precautions. Patient verbalized understanding instructions and agreement with plan. Departure Impression Primary Impression: COVID-19 virus infection Disposition: 01 HOME, SELF-CARE Condition: Stable Departure-Patient Inst. Decision time for Depature: 11:04 Referrals: STAR MARTINEZ MD (PCP/Family) Primary Care Physician Patient Instructions: COVID-19 (DC), Bamlanivimab and Etesevimab FDA Fact Sheet Add. Discharge Instructions: All discharge instructions reviewed with patient and/or family. Voiced understanding. Drink plenty of fluids and get plenty of rest. You are positive for COVID-19 and the health department will call you and direct quarantine/isolation timeframe. You may take Tylenol/acetaminophen 1000 mg every 6 hours as needed for fever or pain. Return for worse pain, fever, vomiting, weakness, breathing problems or other concerns as needed. Monitor your oxygen saturations and return if oxygen saturation is less than 90% while resting on room air. You should be called to set up appointment for infusion therapy for monoclonal antibody. Work/School Note: Work Release Form Date Seen in the Emergency Department: Dec 10, 2020 Return to Work: Dec 19, 2020 Restrictions: No Restrictions Other Restrictions Listed Below: You will remain in isolation until released by the health department. RICK PEREA MD Dec 10, 2020 10:58
[2020-12-10] MEDS ORDERED: ENOXAPARIN 100 MG/1 ML (LOVENOX) SYR SC ONE (11:00)
[2020-12-10 11:28] VITALS: BP 114/64
[2020-12-10] MEDS ORDERED: diphenhydrAMINE 50 MG/ML INJ (BENADRYL) IV PRN (11:45)
[2020-12-10] MEDS ORDERED: EPINEPHrine INJECTION 1 MG/ML AMP IM PRN (11:45)
[2020-12-10] MEDS ORDERED: [UNRECOGNIZED DRUG - OTHER] IV ONE (11:45)
== END 2020-12-10 11:31 | disposition home or self-care (01) ==
LOC: EDUNIT# 07:31 → ER 07:33
DX: U07.1 COVID-19 (principal); I10 Essential (primary) hypertension; G89.29 Other chronic pain; M54.9 Dorsalgia, unspecified; F41.9 Anxiety disorder, unspecified; F17.290 Nicotine dependence, other tobacco product, uncomplicated; Z86.711 Personal history of pulmonary embolism; Z79.01 Long term (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; Z79.891 Long term (current) use of opiate analgesic; Z79.899 Other long term (current) drug therapy
CPT/HCPCS: 36415; 81000; 85610; 87430; 87636

== ENCOUNTER 2020-12-13 13:33 | Outpatient (CLI) | payer BC ==
[~2020-12-13] VITALS: Ht 160 cm; Wt 77.0 kg
[2020-12-13 14:13] VITALS: BP 134/77
[2020-12-13] MEDS ORDERED: diphenhydrAMINE 50 MG/ML INJ (BENADRYL) IV PRN (14:15)
[2020-12-13] MEDS ORDERED: [UNRECOGNIZED DRUG - OTHER] IV ONE (14:15)
[2020-12-13] MEDS ORDERED: EPINEPHrine INJECTION 1 MG/ML AMP IM PRN (14:15)
[2020-12-13 16:12] VITALS: BP 120/75
== END 2020-12-13 16:11 | disposition home or self-care (01) ==
LOC: INFUSION 13:33
PROVIDERS: ATTEND Emergency Medicine
DX: Z23 Encounter for immunization (principal); U07.1 COVID-19

== ENCOUNTER → 2021-05-14 | Outpatient (CLI) | payer BC ==
--- NOTE | 2021-05-14 12:41 | Diagnostic Imaging Report ---
INDICATION: DYSPNEA COMPARISON: 01/28/2020 FINDINGS: Frontal and lateral views of the chest demonstrate normal heart size and pulmonary vascularity. The lungs are clear. There are no signs of infiltrate, pleural effusions or pneumothoraces. The visualized osseous structures show no acute abnormalities. IMPRESSION: 1. No acute process. No signs of infiltrates, effusions or pneumothoraces. Dictated by: Dictated on workstation # [id number]
== END ==
LOC: RAD 12:08
DX: R06.09 Other forms of dyspnea (principal)
CPT/HCPCS: 71046

== ENCOUNTER → 2022-01-07 | Outpatient (CLI) | payer BC ==
[2022-01-07 16:23] LABS: BASOPHILS % (AUTO) 0 % (0-10); EOSINOPHILS # (AUTO) 0.1 10^3/uL (0.0-0.3); EOSINOPHILS % (AUTO) 2 % (0-10); HEMATOCRIT 43 % (35-52); HEMOGLOBIN 14.5 g/dL (11.5-16.0); LYMPHOCYTES # (AUTO) 2.6 10^3/uL (1.0-4.0); LYMPHOCYTES % (AUTO) 38 % (12-44); MEAN CORPUSCULAR HEMOGLOBIN 33 pg (25-34); MEAN CORPUSCULAR HGB CONC 34 g/dL (32-36); MEAN CORPUSCULAR VOLUME 98 fL (80-99); MONOCYTES # (AUTO) 0.4 10^3/uL (0.0-1.0); MONOCYTES % (AUTO) 6 % (0-12); NEUTROPHILS # (AUTO) 3.7 10^3/uL (1.8-7.8); NEUTROPHILS % (AUTO) 54 % (42-75); PLATELET COUNT 252 10^3/uL (130-400); WHITE BLOOD COUNT 6.9 10^3/uL (4.3-11.0)
[2022-01-07 16:36] LABS: ALBUMIN 4.4 GM/DL (3.2-4.5); POTASSIUM 3.7 MMOL/L (3.6-5.0)
[2022-01-07 16:37] LABS: CALCIUM 9.1 MG/DL (8.5-10.1)
[2022-01-07 16:40] LABS: BILIRUBIN,TOTAL 0.4 MG/DL (0.1-1.0)
[2022-01-07 16:42] LABS: CREATININE SERUM 0.73 MG/DL (0.60-1.30)
[2022-01-07 16:55] LABS: ERYTHROCYTE SEDIMENTATION RATE 7 MM/HR (0-20)
== END ==
LOC: LAB 15:48
PROVIDERS: ATTEND Internal Medicine
DX: M79.7 Fibromyalgia (principal); M25.50 Pain in unspecified joint
CPT/HCPCS: 36415; 80053; 84443; 85025; 85652; 86038

== ENCOUNTER 2022-02-25 13:35 | Emergency (ER) | payer BC ==
--- NOTE | 2022-02-25 14:52 | ED Cough/URI ---
General Chief Complaint: COVID19 Suspect/Confirmed Stated Complaint: SORE THROAT/EARACHE/FEVER Nursing Triage Note: PT AMB TO [facility] 9 WITH C/O COVID SYMPTOMS STARTING FRIDAY. PT STATES SHE HAS HAD A FEVER AT HOME, SORE THROAT AND BODY ACHES. 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 Exam Limitations: no limitations History of Present Illness Date Seen by Provider: Feb 25, 2022 Time Seen by Provider: 14:52 Allergies and Home Medications Allergies Coded Allergies: Sulfa (Sulfonamide Antibiotics) (Unverified Allergy, Severe, PER PT "THRO AT SWELLS", 09/11/11) bupropion (Unverified Allergy, Severe, IRREG HEART RATE, 10/21/14) amoxicillin (Unverified Allergy, Mild, RASH AND VISUAL DISTURBANCES/VISUAL LOSS, 03/21/15) PER PT REPORT clavulanic acid (Unverified Allergy, Mild, RASH AND VISUAL DISTURBANCES/VISUAL LOSS, 03/21/15) PER PT REPORT cefuroxime axetil (Unverified Allergy, Unknown, PER PATIENT CAN TAKE ROCEPHIN, 03/21/15) PER [facility] PATIENT RECEIVED ROCEPHIN ON 02/23 WITHOUT ISSUE ciprofloxacin (Verified Allergy, Unknown, 03/14/19) levofloxacin (Unverified Allergy, Unknown, Tachycardia, 05/10/18) lidocaine (Verified Allergy, Unknown, 03/14/19) cefdinir (Unverified Adverse Reaction, Unknown, 07/23/19) tramadol (Unverified Adverse Reaction, Unknown, HEADACHE, 01/05/15) Uncoded Allergies: PENICILLIN (Allergy, Mild, RASH, 03/21/15) PER PT REPORT Patient Home Medication List Home Medication List Reviewed: Yes Acetazolamide (Acetazolamide) 125 Mg Tablet, 62.5 MG PO DAILY, (Reported) Entered as Reported by: MIHIR DIALLO on 12/16/14 1100 Capsaicin (Capsaicin Hot Patch) 1 Each Adh..patch, 1 EACH TP BID PRN for PAIN- MODERATE Prescribed by: AMPARO WHITE on 02/10/17 1525 Cholestyramine/Aspartame (Questran Light Packet) 4 G/Pkt Packet, 2 G PO HS, (Reported) Entered as Reported by: ADY LAGOS on 07/14/12 0824 Cyclobenzaprine Hcl (Cyclobenzaprine Hcl) 10 Mg Tablet, 0.5 TAB PO HS, (Reported) Entered as Reported by: MATI RUSHING on 07/30/14 1218 Famotidine (Pepcid) 20 Mg Tablet, 20 MG PO BID Prescribed by: ALEXANDREA JORDAN on 01/28/20 1628 Hydrocodone Bit/Acetaminophen (Hydrocodon-Acetaminophn 10-325) 1 Each Tablet, 0.5 EACH PO Q4H PRN, (Reported) Entered as Reported by: ADY LAGOS on 07/14/12 0824 Hydroxyzine Pamoate (Rx-Vistaril) 25 Mg Cap, 25 MG PO PRN, (Reported) Entered as Reported by: KIARA DENNEY on 11/29/14 1113 Nebivolol HCl (Bystolic) 10 Mg Tab, 15 MG PO DAILY, (Reported) Entered as Reported by: ABDIAS SANTIAGO on 05/12/162030 Warfarin Sodium (Coumadin) 5 Mg Tablet, 5 MG PO DAILY, (Reported) Entered as Reported by: ABDIAS SANTIAGO on 05/12/162030 Warfarin Sodium (Coumadin) 7.5 Mg Tablet, 7.5 MG PO DAILY, (Reported) Entered as Reported by: ABDIAS SANTIAGO on 05/12/162030 Past Zisvcqi-Sxutxj-Wfvuoj Hx Patient Social History Tobacco Use?: No Use of E-Cig and/or Vaping dev: Yes Substance use?: No Alcohol Use?: No Pt feels they are or have been: No Immunizations Up To Date Tetanus Booster (TDap): More than 5yrs PED Vaccines UTD: No Influenza Vaccine Up-to-Date: No; Not Current Seasonal Allergies Seasonal Allergies: No Past Medical History Surgery/Hospitalization HX: PE, BLOOD CLOTTING DISORDER, PSEUDOTUMOR Surgeries: Yes (L SHOULDERX2, DNC) Section, Gallbladder, Hysterectomy, Orthopedic Respiratory: Yes Pulmonary Embolism Cardiac: Yes (TACHYCARDIA, POTS SYNDROME, NORMAL STRESS TEST 11/2014) Chronic Edema/Swelling, Hypertension, Palpitations Neurological: Yes (PSEUDOTUMOR CEREBRI DX 12/2009) Headaches /Migraines Reproductive Disorders: Yes (CHORIOCARCINOMA, MULTIPLE MISCARRIAGES) Female Reproductive Disorders: Endometriosis 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 07/2009) Uterine Psychosocial: Yes Anxiety Integumentary: No Blood Disorders: No Family Medical History No Pertinent Family Hx Physical Exam Vital Signs - First Documented 02/25/22 14:05 Temp 37.8 Pulse 103 Resp 18 B/P (MAP) 136/99 (111) Capillary Refill : Height: 5'3.00" Weight: 168lbs. 0.0oz. 76.622271ro; 30.00 BMI Method:Stated Progress/Results/Core Measures Suspected Sepsis SIRS Temperature: Pulse: 103 Respiratory Rate: 18 Blood Pressure 136 /99 Mean: 111 Results/Orders Lab Results Laboratory Tests Test 02/25/22 14:17 Range/Units Influenza Type A (RT-PCR) Not Detected Not Detecte Influenza Type B (RT-PCR) Not Detected Not Detecte SARS-CoV-2 RNA (RT-PCR) Detected H Not Detecte My Orders Orders - MARLENI ANGELES COLLAR TAILOR Covid 19 Inhouse Test (02/25/22 14:34) Influenza A And B By Pcr (02/25/22 14:34) Rapid Strep A Screen (02/25/22 14:53) Ed Iv/Invasive Line Start (02/25/22 14:53) Ns Iv 1000 Ml (Sodium Chloride 0.9%) (02/25/22 15:00) Fentanyl Inj (Sublimaze Injection) (02/25/22 15:00) Bebtelovimab (Bebtelovimab) (02/25/22 15:30) Nursing Communication (Order) (02/25/22 15:29) Medications Given in ED Current Medications Medications Dose Ordered Sig/Levi Route Start Time Stop Time Status Last Admin Dose Admin Bebtelovimab 175 mg ONCE ONCE IV 02/25/22 15:30 02/25/22 15:31 DC 02/25/22 15:58 175 MG Fentanyl Citrate 50 mcg ONCE ONCE IVP 02/25/22 15:00 02/25/22 15:01 DC 02/25/22 15:05 50 MCG Sodium Chloride 1,000 ml @ 999 mls/hr ONCE ONCE IV 02/25/22 15:00 02/25/22 16:00 DC 02/25/22 15:05 999 MLS/HR Vital Signs/I&O 02/25/22 14:05 Temp 37.8 Pulse 103 Resp 18 B/P (MAP) 136/99 (111) Capillary Refill : Blood Pressure Mean: 111 Departure Impression Primary Impression: COVID-19 virus infection Disposition: 01 HOME, SELF-CARE Condition: Improved Departure-Patient Inst. Decision time for Depature: 16:21 Referrals: CORAL SEO MD (PCP/Family) Primary Care Physician Patient Instructions: COVID-19 Home Care/Discharge Add. Discharge Instructions: Plan: 1. Discharge home. You received the monoclonal antibody infusion in the ER today, no allergic reaction appreciated, return if you develop any new, concerning signs of allergic reaction 2. Stay home for 5 days and then mask when in public for additional 5 days. If you are still running fever, you will need to stay home until you are fever free. 3. Wash your hands frequently, disinfect surfaces at home. Try to isolate yourself from others in the house as much as you are able. 4. Clean areas that may have blood, stool, or body fluids on them. 5. Cover your mouth and nose when you cough or sneeze, throw away tissues, and wash hands immediately. 6. Return to ER if you develop: trouble breathing, persistent pain or pressur in the chest, new confusion, inabililty to wake or stay awake, pale, [place], blue- colored skin, lips, or nail beds depending on skin tone. 7. Return to ER for any other new, concerning, or worsening symptoms. All discharge instructions reviewed with patient and/or family. Voiced understanding. Work/School Note: Work Release Form Date Seen in the Emergency Department: Feb 25, 2022 Return to Work: Mar 02, 2022 Restrictions: No Restrictions MARLENI ANGELES COLLAR TAILOR Feb 25, 2022 14:52
[2022-02-25] MEDS ORDERED: NS IV 1000 ML 1,000 ML IV ONE (15:00)
[2022-02-25] MEDS ORDERED: fentaNYL INJ 100 MCG/2 ML AMP IVP ONE (15:00)
[2022-02-25] MEDS ORDERED: BEBTELOVIMAB 175 MG/2 ML VIAL IV ONE (15:30)
[2022-02-25 17:03] VITALS: BP 125/79
== END 2022-02-25 17:07 | disposition home or self-care (01) ==
LOC: EDUNIT# 13:35 → ER 13:37
DX: U07.1 COVID-19 (principal); F17.290 Nicotine dependence, other tobacco product, uncomplicated; Z28.310 Unvaccinated for COVID-19
CPT/HCPCS: 87636

== ENCOUNTER → 2022-04-19 | Outpatient (CLI) | payer BC ==
--- NOTE | 2022-04-19 15:49 | Diagnostic Imaging Report ---
Indication: Routine screening Comparison is made with prior mammograms from 06/17/2019 and 10/14/2017. 2-D and 3-D bilateral screening mammography was performed with CAD. Scattered fibroglandular densities are identified bilaterally. The parenchymal pattern is stable. No dominant mass or malignant-appearing microcalcifications are seen. There are scattered benign-appearing nodules which appear stable. There are benign calcifications. The axillae are unremarkable. IMPRESSION: BI-RADS Category 2 No mammographic features suspicious for malignancy are identified. ACR BI-RADS Category 2: Benign findings. Result letter will be mailed to the patient. Note: At least 10% of breast cancer is not imaged by mammography. Dictated by: Dictated on workstation # [id number]
--- NOTE | 2022-04-19 16:07 | Diagnostic Imaging Report ---
Right posterior neck mass and right neck lump. Sonographic interrogation of the area of lump in the right neck was performed. There is a lymph node measuring 1.3 x 0.3 x 1.2 cm. This has been seen previously and measured 1.1 x 0.4 x 0.8 cm. No fluid collections are seen. No additional masses are identified. IMPRESSION: Normal-sized right neck lymph node, corresponding to the palpable abnormality. Dictated by: Dictated on workstation # [id number]
== END ==
LOC: RAD 13:46
PROVIDERS: ATTEND Nurse Practitioner Family
DX: Z12.31 Encounter for screening mammogram for malignant neoplasm of breast (principal); R22.1 Localized swelling, mass and lump, neck
CPT/HCPCS: 76536; 77063; 77067

== ENCOUNTER → 2022-09-19 | Outpatient (CLI) | payer BC ==
[2022-09-19 15:38] LABS: BASOPHILS % (AUTO) 1 % (0-10); EOSINOPHILS # (AUTO) 0.1 10^3/uL (0.0-0.3); EOSINOPHILS % (AUTO) 1 % (0-10); HEMATOCRIT 42 % (35-52); HEMOGLOBIN 14.3 g/dL (11.5-16.0); LYMPHOCYTES # (AUTO) 2.7 10^3/uL (1.0-4.0); LYMPHOCYTES % (AUTO) 32 % (12-44); MEAN CORPUSCULAR HEMOGLOBIN 33 pg (25-34); MEAN CORPUSCULAR HGB CONC 34 g/dL (32-36); MEAN CORPUSCULAR VOLUME 96 fL (80-99); MEAN PLATELET VOLUME 8.6 fL (9.0-12.2); MONOCYTES # (AUTO) 0.5 10^3/uL (0.0-1.0); MONOCYTES % (AUTO) 6 % (0-12); NEUTROPHILS # (AUTO) 5.3 10^3/uL (1.8-7.8); NEUTROPHILS % (AUTO) 61 % (42-75); PLATELET COUNT 268 10^3/uL (130-400); WHITE BLOOD COUNT 8.7 10^3/uL (4.3-11.0)
[2022-09-19 15:59] LABS: CREATINE KINASE 83 U/L (29-168)
[2022-09-19 16:39] LABS: FIBRIN DEGRADATION PRODUCTS <= 0.27 UG/ML (0.00-0.49); INR 1.1 (0.8-1.4); PROTHROMBIN TIME PATIENT 14.3 SEC (12.2-14.7)
[2022-09-20 11:54] LABS: TRIGLYCERIDES 153 MG/DL (<150); VLDL CHOLESTEROL 31 MG/DL (5-40)
[2022-09-20 11:59] LABS: CHOLESTEROL 229 MG/DL (< 200)
[2022-09-20 12:00] LABS: HDL CHOLESTEROL 70 MG/DL (40-60)
== END ==
LOC: RAD 14:40
PROVIDERS: ATTEND Nurse Practitioner Family
DX: K21.9 Gastro-esophageal reflux disease without esophagitis (principal); Z79.01 Long term (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
CPT/HCPCS: 36415; 80061; 82550; 84443; 84484; 85025; 85379; 85610; 93005

== ENCOUNTER 2022-10-18 05:32 | Outpatient (CLI) | payer BC ==
[~2022-10-18] VITALS: Ht 157.5 cm; Wt 91.6 kg
[2022-10-18] MEDS ORDERED: LORA10TA7 PO (12:04)
== END 2022-10-18 12:05 | disposition home or self-care (01) ==
LOC: PREOP 05:32
PROVIDERS: ATTEND Internal Medicine
DX: Z01.818 Encounter for other preprocedural examination (principal)

== ENCOUNTER 2022-10-25 09:08 | Day surgery (SDC) | payer BC ==
--- NOTE | 2022-10-17 17:34 | HISTORY AND PHYSICAL ---
DATE OF SERVICE: 10/25/2022 PANENDOSCOPY HISTORY AND PHYSICAL HISTORY OF PRESENT ILLNESS: The patient is a 47-year-old white female referred by Dr. Portillo for screening colonoscopy and diagnostic EGD. She reports she has had reflux symptoms that she describes as episodes of severe chest pain, they can last typically several hours in duration. It is not associated with nausea, sometimes it will radiate through to her back. On several occasions, she has had dysphagia; one time she even had to regurgitate coffee that she felt was not going down. She has had no previous history of EGD and denies melena. She has had some intermittent bright red blood per rectum that she has attributed to hemorrhoids. From a screening colonoscopy standpoint, she is deemed to be higher than average risk as there is some family history for colon polyps. She denies any known family history for colon cancer. Also significant for pseudotumor cerebri, for which she is on acetazolamide. FAMILY HISTORY: Her mother had a stroke as well as breast cancer and her mother has had thyroid cancer. PAST MEDICAL HISTORY: Significant for fibromyalgia. She also has antiphospholipid syndrome and has had a pulmonary embolism following total abdominal hysterectomy as I recall around 10 years ago. 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 She has a history of irritable bowel syndrome. PAST SURGICAL HISTORY: Other than hysterectomy, she has had dilatation and curettage. She has had arthroscopic shoulder surgery in 1997-, wisdom tooth extraction and a cholecystectomy in 2003. 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 Quit smoking in 2019 with a 74-metr-khzj smoking history. No significant alcohol intake. REVIEW OF SYSTEMS: CONSTITUTIONAL: Denies night sweats, chills, fever or change in weight. GASTROINTESTINAL: As noted in the HPI. PULMONARY: Denies cough, wheezing or shortness of breath. CARDIOVASCULAR: She does have episodes of severe chest pain as noted above, but are not exertional and last for hours. She denies orthopnea, PND, or pedal edema. PHYSICAL EXAMINATION: GENERAL: Reveals a pleasant white female in no acute distress. VITAL SIGNS: Blood pressure 124/88. HEENT: Unremarkable. Sclerae nonicteric. CHEST: Clear. CARDIOVASCULAR: Reveals a regular rate and rhythm without murmur, S3, or S4. ABDOMEN: Soft, supple without mass, organomegaly, or tenderness. EXTREMITIES: Revealed no cyanosis, clubbing or edema. ASSESSMENT AND PLAN: 1. The patient is being set up for diagnostic EGD due to dysphagia and possible chest pain due to esophageal spasm. She will be undergoing screening colonoscopy as well. 2. History of antiphospholipid syndrome. She has not had a thromboembolic event in 10 years and was advised to hold Coumadin 48 hours prior to the procedure. Latest INRs have been in the low 2 range per her report. Prep instructions were given and questions were answered. Electronic medical record was reviewed as well as notation from Dr. Portillo's office. I thank you for the referral of this pleasant lady. Job ID: [id number] DocumentID: [id number] Dictated Date: 10/17/2022 16:27:59 Engineer Internship Date: 10/17/2022 17:20:00 Dictated By: KEN OCASIO MD
[~2022-10-25] VITALS: Ht 157.5 cm; Wt 91.6 kg
[~2022-10-25 09:08] MED LIST changes: +LORA10TA7 PO
[2022-10-25] MEDS ORDERED: LACTATED RINGERS 1,000 ML IV STA (09:23)
[2022-10-25] MEDS ORDERED: HURRICAINE EXT TUBE (BENZOCAINE) XX PRN (09:30)
--- NOTE | 2022-10-25 09:34 | Pre-Op Note & Conscious Sedat ---
Pre-Operative Progress Note Date H&P Reviewed: October 25, 2022 Time H&P Reviewed: 09:33 History & Physical: H&P Reviewed, Patient Examed, No changes noted Pre-Op Diagnosis: gerd chest pain screening colon Moderate Sedation PreProcedure ASA Score 2, 3 Airway Lungs Heart ASA score ASA 1: a normal healthy patient ASA 2: a patient with a mild systemic disease (mid diabetes, controlled hypertension, obesity ASA 3: a patient with a severe systemic disease that limits activity (angina, COPD, prior Myocardial infarction) ASA 4: a patient with an incapacitating disease that is a constant threat to life (CHF, renal failure) ASA 5: a moribund patient not expected to survive 24 hrs. (ruptured aneurysm) ASA 6: a declared brain- patient whose organs are being harvested. For emergent operations, add the letter E after the classification Mallampati Classification Grade 2 Sedation Plan Analgesia, Amnesia, Plan communicated to team members, Discussed options with patient/fam, Discussed risks with patient/fam The patient is an appropriate candidate to undergo the planned procedure, sedation, and anesthesia. The patient immediately re-assessed prior to indication. KEN OCASIO MD October 25, 2022 09:34
[2022-10-25 09:35] VITALS: BP 114/75
[2022-10-25] MEDS ORDERED: MIDAZOLAM 2 MG/2 ML (VERSED) VIAL ONE (10:24)
[2022-10-25] MEDS ORDERED: PROPOFOL INJECTION 50 ML IV ONE ×2 (10:24→10:48)
[2022-10-25 11:00] VITALS: BP 86/50
--- NOTE | 2022-10-25 11:06 | Anesthesia-General Post-Op ---
MAC Patient Condition Mental Status/LOC: Same as Preop Cardiovascular: Satisfactory Nausea/Vomiting: Absent Respiratory: Satisfactory Pain: Controlled Complications: Absent Post Op Complications Complications None Follow Up Care/Instructions Patient Instructions None needed. Anesthesiology Discharge Order Discharge Order Patient is doing well, no complaints, stable vital signs, no apparent adverse anesthesia problems. No complications reported per nursing. MARC WINCHESTER CRNA October 25, 2022 11:06
--- NOTE | 2022-10-25 11:15 | Progress Note-Post Operative ---
Post-Procedure Note Physician (s)/Assistant Signal Maintainer (s) Physician KEN OCASIO MD Pre-Procedure Diagnosis Pre-Procedure Diagnosis: gerd chest pain screening colon Post-Procedure Diagnosis Post-operative diagnosis: The endoscope was inserted into the oral cavity and under direct visualization the esophagus is intubated. The endoscope is passed down the esophagus through the stomach and into the second portion of the duodenum. A careful inspection was made as the endoscope was withdrawn. Findings The posterior pharynx epiglottis arytenoid aperture and true and false vocal folds were unremarkable to visual inspection. Proximal mid and distal esophagus were unremarkable. Minimal mild erythema was noted at a distinct Z-line a biopsy was obtained and submitted for histopathology. As the patient was having dysphagia we did obtain biopsies from the distal and midesophagus to evaluate for eosinophilic esophagitis. On gross inspection the esophagus is unremarkable. The cardia fundus antrum pylorus pyloric channel duodenal bulb and second portion the duodenum were unremarkable. A/P 1. Minimal erythema is noted at the Z-line with no evidence for erosive esophagitis. Biopsies are pending to rule out eosinophilic esophagitis. This is otherwise normal EGD evaluation and there was no evidence for extrinsic compression of the the esophagus As well. Prior to undergoing colonoscopy digital rectal evaluation was performed. Anal suture tone was normal and the perianal reflexes intact. No abnormalities noted on digital inspection anal canal or distal rectal vault. The colonoscope was was then inserted into the rectum and under direct visualization was advanced to the cecum. The cecum was identified by identification of the appendiceal orifice and ileocecal valve. Photographic documentation was obtained. Careful inspection was made as the colonoscope was withdrawn. Quality the prep was good. Findings there are no evidence for internal or external hemorrhoids. The rectum was unremarkable. Present the proximal sigmoid colon was a diminutive 3 mm sessile polyp it was biopsied and ablated and submitted for histopathology with no blood loss. The descending colon splenic flexure transverse colon hepatic flexure ascending colon and cecum were unremarkable. Assessment 1 diminutive polyp was removed from the proximal sigmoid colon via hot forceps with an otherwise normal colonoscopy to cecum under good prep conditions. Would advocate consideration for repeat screening colonoscopy in 10 years. I thank you for the referral of this pleasant lady sincerely Ken Ocasio MD CC: MD AMARJIT Marie MARK D MD October 25, 2022 11:15
[2022-10-25 11:35] VITALS: BP 86/50
== END 2022-10-25 11:35 | disposition home or self-care (01) ==
LOC: ENDO 09:08
PROVIDERS: ATTEND Internal Medicine
DX: Z12.11 Encounter for screening for malignant neoplasm of colon (principal); K63.5 Polyp of colon; K21.00 Gastro-esophageal reflux disease with esophagitis, without bleeding; G93.2 Benign intracranial hypertension; Z85.41 Personal history of malignant neoplasm of cervix uteri; F17.290 Nicotine dependence, other tobacco product, uncomplicated; Z79.899 Other long term (current) drug therapy; Z86.711 Personal history of pulmonary embolism; Z28.310 Unvaccinated for COVID-19; Z79.01 Long term (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

== ENCOUNTER 2023-01-05 17:48 | Emergency (ER) | payer BC ==
[~2023-01-05] VITALS: Ht 160 cm; Wt 75.0 kg
[2023-01-05 18:00] VITALS: BP 123/81
[2023-01-05] MEDS ORDERED: CLIN-144 PO (18:18)
--- NOTE | 2023-01-05 18:18 | ED EENT ---
History of Present Illness General Chief Complaint: Eye Problems Stated Complaint: SWOLLEN LEFT EYE Nursing Triage Note: PT AMB TO FT2 PT CO OF L EYE SWELLING AND REDNESS, STARTED ON FRIDAY, UNSURE WHATS CAUSING IT Source: patient Exam Limitations: no limitations History of Present Illness Date Seen by Provider: Jan 05, 2023 Time Seen by Provider: 18:15 Initial Comments Patient is a 47-year-old female who presents to the ED for left lower eye swelling and redness. She states that a week ago she was using a device to clean her skin on her face. She neck the inner side of her left lower eyelid. Friday noted some itching redness and swelling to the skin below her left eye. Redness and swelling has migrated around the eye. She denies of any pain with eye movement, photophobia, eyeball redness, fever, chills, loss of vision, headache or dizziness. She did have some leftover eyedrops at home she used without much improvement. She does report some pain to this location but denies of any palpable abscess. Allergies and Home Medications Allergies Coded Allergies: Sulfa (Sulfonamide Antibiotics) (Unverified Allergy, Severe, PER PT "THROAT SWELLS", 09/11/11) bupropion (Unverified Allergy, Severe, IRREG HEART RATE, 10/21/14) amoxicillin (Unverified Allergy, Mild, RASH AND VISUAL DISTURBANCES/VISUAL LOSS, 03/21/15) PER PT REPORT clavulanic acid (Unverified Allergy, Mild, RASH AND VISUAL DISTURBANCES/VISUAL LOSS, 03/21/15) PER PT REPORT cefuroxime axetil (Unverified Allergy, Unknown, PER PATIENT CAN TAKE ROCEPHIN, 03/21/15) PER [facility] PATIENT RECEIVED ROCEPHIN ON 02/23 WITHOUT ISSUE ciprofloxacin (Verified Allergy, Unknown, 03/14/19) levofloxacin (Unverified Allergy, Unknown, Tachycardia, 05/10/18) lidocaine (Verified Allergy, Unknown, 03/14/19) cefdinir (Unverified Adverse Reaction, Unknown, 07/23/19) tramadol (Unverified Adverse Reaction, Unknown, HEADACHE, 01/05/15) Uncoded Allergies: PENICILLIN (Allergy, Mild, RASH, 03/21/15) PER PT REPORT Patient Home Medication List Home Medication List Reviewed: Yes Acetazolamide (Acetazolamide) 125 Mg Tablet, 62.5 MG PO DAILY, (Reported) Entered as Reported by: MIHIR DIALLO on 12/16/14 1100 Cholestyramine/Aspartame (Questran Light Packet) 4 G/Pkt Packet, 2 G PO HS, (Reported) Entered as Reported by: ADY LAGOS on 07/14/12 0824 Clindamycin HCl (Clindamycin HCl) 300 Mg Capsule, 300 MG PO QID Prescribed by: SOHN ALMONTE on 01/05/23 1818 Hydrocodone Bit/Acetaminophen (Hydrocodon-Acetaminophn 10-325) 1 Each Tablet, 0.5 EACH PO Q4H PRN, (Reported) Entered as Reported by: ADY LAGOS on 07/14/12 0824 Hydroxyzine Pamoate (Rx-Vistaril) 25 Mg Cap, 25 MG PO PRN, (Reported) Entered as Reported by: KIARA DENNEY on 11/29/14 1113 Loratadine (Loratadine) 10 Mg Tablet, 10 MG PO DAILY, (Reported) Entered as Reported by: KATH GRIJALVA on 10/18/22 1204 Nebivolol HCl (Bystolic) 10 Mg Tab, 15 MG PO DAILY, (Reported) Entered as Reported by: ABDIAS SANTIAGO on 05/12/162030 Warfarin Sodium (Coumadin) 5 Mg Tablet, 5 MG PO DAILY, (Reported) Entered as Reported by: ABDIAS SANTIAGO on 05/12/162030 Warfarin Sodium (Coumadin) 7.5 Mg Tablet, 7.5 MG PO DAILY, (Reported) Entered as Reported by: ABDIAS SANTIAGO on 05/12/162030 Review of Systems Review of Systems Constitutional: No chills, No diaphoresis, No malaise, No weakness Eyes: Denies Blurred Vision, Denies Drainage; Other (Left orbital swelling and erythema) Ears: Denies Dizziness, Denies Pain Nose: denies clots, denies congestion Mouth: denies clots Throat: denies pain, denies swelling Respiratory: No cough, No dyspnea on exertion Cardiovascular: No chest pain, No edema Gastrointestinal: No abdominal pain, No diarrhea, No nausea, No vomiting Musculoskeletal: No back pain, No joint pain Skin: No change in color, No change in hair/nails All Other Systems Reviewed Negative Unless Noted: Yes Past Mcuazgn-Qykpxp-Xxyizu Hx Patient Social History Tobacco Use?: No Use of E-Cig and/or Vaping dev: Yes E-Cig or Vaping type used: Nicotine Substance use?: No Alcohol Use?: No Pt feels they are or have been: No Immunizations Up To Date Tetanus Booster (TDap): More than 5yrs PED Vaccines UTD: No First/Initial COVID19 Vaccinat: NO Second COVID19 Vaccination Siai: NO Third COVID19 Vaccination Date: NO Seasonal Allergies Seasonal Allergies: No Past Medical History Surgery/Hospitalization HX: PE, BLOOD CLOTTING DISORDER, PSEUDOTUMOR, FIBRO, JOINT PAIN, CAMARILLO DISORDER Surgeries: Yes (L SHOULDERX2, DNC) Section, Gallbladder, Hysterectomy, Orthopedic Respiratory: Yes Pulmonary Embolism Cardiac: Yes (TACHYCARDIA, POTS SYNDROME, NORMAL STRESS TEST 11/2014) Chronic Edema/Swelling, Hypertension, Palpitations Neurological: Yes (PSEUDOTUMOR CEREBRI DX 12/2009) Headaches /Migraines Reproductive Disorders: Yes (CHORIOCARCINOMA, MULTIPLE MISCARRIAGES) Female Reproductive Disorders: Endometriosis [employer] WORK[employer] History: Hysterectomy Sexually Transmitted Disease: No HIV/AIDS: No Genitourinary: No Gastrointestinal: Yes Gall Bladder Disease, Irritable Bowel Musculoskeletal: Yes (STATES WAS DIAGNOSED BY DR CHAVES, "STREP ARTHRITIS", CHRONIC NECK PAIN ) Arthritis, Fibromyalgia, Chronic Back Pain Endocrine: No HEENT: Yes ("issues with left ear- sees Dr Lugo") Loss of Vision: Denies Hearing Impairment: Denies Cancer: Yes (CHORIOCARCINOMA/MOLAR -D&C & MTX [place]. 07/2009) Uterine Psychosocial: Yes Anxiety Integumentary: No Blood Disorders: No Family Medical History No Pertinent Family Hx Physical Exam Vital Signs Vital Signs - First Documented 01/05/23 18:00 Temp 36.1 Pulse 83 Resp 18 B/P (MAP) 123/81 (95) Pulse Ox 100 Height, Weight, BMI Height: 5'3.00" Weight: 168lbs. 0.0oz. [id number]; 29.00 BMI Method:Stated General Appearance: WD/WN, no apparent distress Eyes: left eye other (Left lower erythema and swelling. Small area of induration below the left eye) Ears: bilateral ear auricle normal, bilateral ear canal normal, bilateral ear TM normal Nose: normal inspection Mouth/Throat: normal mouth inspection, pharynx normal, dental tenderness Neck: non-tender, full range of motion, supple Cardiovascular: regular rate, rhythm, no edema, no gallop, no JVD Respiratory: chest non-tender, lungs clear, normal breath sounds, no respiratory distress, no accessory muscle use Gastrointestinal: normal bowel sounds, non tender, soft Neurologic/Psychiatric: tobacco stripper hand II-XII nml as tested, no motor/sensory deficits, alert, normal mood/affect, oriented x 3 Skin: other (Small abrasion below the left lower eye lid. Surrounding erythema and swelling underneath the left eye.) Progress/Results/Core Measures Results/Orders My Orders Orders - GARRICK KEITH Clindamycin Capsule (Cleocin Capsule) (01/05/23 18:19) Vital Signs/I&O 01/05/23 18:00 Temp 36.1 Pulse 83 Resp 18 B/P (MAP) 123/81 (95) Pulse Ox 100 Blood Pressure Mean: 95 Departure Communication (PCP) Reviewed previous ER visits, H&P, lab testing. Differential diagnosis, periorbital cellulitis, stye, abscess. On exam induration below the left eye lid. Maciej in the skin from using a tool to clean her face 1 week ago. No abscess. Erythema and swelling below the left eye. No pain with extraocular movements. Pupils reactive light. Concern for periorbital cellulitis. No evidence of erythematous injection of the left eye. No obvious trauma besides using a tool to clean her face. This resulted in a skin injury which is likely the source of infection. Will discharge her clindamycin as she has multiple antibiotic allergies. If increased redness or swelling or pain with eye movement to return back to ED. Follow-up your primary care physician 2 days for reevaluation. Anti-inflammatories for pain. Return precaution were discussed Impression Primary Impression: Periorbital cellulitis Disposition: 01 HOME, SELF-CARE Condition: Stable Departure-Patient Inst. Decision time for Depature: 18:17 Referrals: CORAL SEO MD (PCP/Family) Primary Care Physician Patient Instructions: PERIORBITAL CELLULITIS Add. Discharge Instructions: Follow-up your PCP in 2 to 3 days for reevaluation. If any worsening symptoms return back to ED. All discharge instructions reviewed with patient and/or family. Voiced understanding. Scripts Clindamycin HCl (Clindamycin HCl) 300 Mg Capsule 300 MG PO QID for 7 Days, #28 CAP Prov: GARRICK KEITH 01/05/23 GARRICK KEITH Jan 05, 2023 18:18
[2023-01-05] MEDS ORDERED: CLINDAMYCIN 150 MG (CLEOCIN) CAP PO STA (18:19)
== END 2023-01-05 18:25 | disposition home or self-care (01) ==
LOC: EDUNIT# 17:48 → ER 17:50
DX: L03.213 Periorbital cellulitis (principal); F17.290 Nicotine dependence, other tobacco product, uncomplicated; Z88.0 Allergy status to penicillin; Z88.2 Allergy status to sulfonamides; Z28.310 Unvaccinated for COVID-19
CPT/HCPCS: 99283